=== PATIENT | male | born 1950 | race Caucasian/White ===

== ENCOUNTER 2022-02-17 11:12 | Outpatient (CLI) | payer MEDICARE, BC, SELFPAY | END 2022-02-17 11:13 | disposition home or self-care (01) | LOC: WOUND 11:14 | PROVIDERS: PCP Family Medicine; Visit Provider Nurse Practitioner Family | DX: E11.622 Type 2 diabetes mellitus with other skin ulcer (principal); L89.893 Pressure ulcer of other site, stage 3 | CPT/HCPCS: 11042 ==

== ENCOUNTER 2022-02-24 10:50 | Outpatient (CLI) | payer MEDICARE, BC, SELFPAY | END 2022-02-24 10:51 | disposition home or self-care (01) | LOC: WOUND 10:51 | PROVIDERS: PCP Family Medicine; Visit Provider Surgery | DX: E11.622 Type 2 diabetes mellitus with other skin ulcer (principal); L89.893 Pressure ulcer of other site, stage 3 | CPT/HCPCS: 97597 ==

== ENCOUNTER 2022-03-10 10:58 | Outpatient (CLI) | payer MEDICARE, BC, SELFPAY ==
--- OUTSIDE RECORDS SUMMARY | 2022-03-30 18:42 | XMS_ITS | Encounter Summary ---
:1950 Author Organization [facility] Address [address] [place] [address] Care Team Providers Name Role Phone Momo Forbes Primary Care Provider Joseph Quintana MD Unavailable Encounter Details Date Type Department Care Team Description 12/09/2021 External Order [facility] Outside, Provide r Results Molecular Diagnostic s [address] [place] [address] Social History Tobacco Use Types Packs/Day Years Used Date Former Smoker Cigars 5 Quit: 08/22/19 07 Smokeless Tobacco: Never Used Alcohol Use Standard Drinks/Week Comments Yes 0 (1 standard drink = 0.6 oz pure alcoho l) occasional drink. Alcohol Habits Answer Date Recorded How often do you have a drink containing alcohol? Not asked How many drinks containing alcohol do you have on a Not aske d typical day when you are drinking? How often do you have six or more drinks on one Not asked occasion? Comment: occasional drink. 02/08/2012 Sex Assigned at Date Recorded Not on file documented as of this encounter Plan of Treatment Not on filedocumented as of this encounter Procedures Procedure Name Priority Date/Time Associated Comments Diagnosis TACROLIMUS BY TANDEM Routine 12/09/2021 11:50 Res ults for this MASS SPECTROMETRY AM CDT procedure are in the results section. PROTEIN RANDOM URINE Routine 12/09/2021 11:50 Res ults for this AM CDT procedure are i n the results section. BASIC METABOLIC PANEL Routine 12/09/2021 11:50 Re sults for this AM CDT procedure are i n the results section. CBC WITH PLATELETS Routine 12/09/2021 11:50 Resul ts for this AM CDT procedure are i n the results section. documented in this encounter Results (ABNORMAL) CBC with platelets (12/09/2021 11:50 AM CDT) Analysis Performed At Patho logist Time Signature WBC Count 7.68 5.00 - NON-INTERFACE (External) 10.00 K/UL D (ONBASE SCANS) RBC Count 4.41 4.32 - NON-INTERFACE (External) 5.72 M/UL D (ONBASE SCANS) Hemoglobin 12.3 (L) 13.5 - NON-INTERFACE (External) 17.5 GM/DL D (ONBASE SCANS) Hematocrit 38.7 (L) 38.8 - NON-INTERFACE (External) 50.0 % D (ONBASE SCANS) MCV (External) 88 81 - 95 FL NON-INTERFACE D (ONBASE SCANS) MCH (External) 28 27 - 34 PG NON-INTERFACE D (ONBASE SCANS) MCHC (External) 32 32 - 36 NON-INTERFACE GM/DL D (ONBASE SCANS) Platelet Count 151 150 - 450 NON-INTERFACE (External) K/UL D (ONBASE SCANS) Specimen (Source) Anatomical Collection Method Collection Time Re ceived Time Location / / Volume Laterality Blood 12/09/2021 11:50 AM CDT Narrative [facility] - 12/15/2021 3:20 PM CDT Verified by Ruperto Pepper on 12/16/19. Provider Outside LAB - BLOOD ORDERABLES Performing Organization Address City/State/ZIP Code Phon e Number [facility] NON-INTERFACED (ONBASE SCANS) Tacrolimus by Tandem Mass Spectrometry (12/09/2021 11:50 AM CDT) P athologist Signature Tacrolimus(FK-5 4.5 See scan NON-INTERFACED 06) (External) ng/mL (ONBASE SCANS) Specimen (Source) Anatomical Collection Method Collection Time Re ceived Time Location / / Volume Laterality Blood 12/09/2021 11:50 AM CDT Narrative [facility] - 12/11/2021 4:45 PM CDT Verified by Cassie Florian on 12/11/2021. Orlando Richey MD LAB - BLOOD ORDERABLES Performing Organization Address City/State/ZIP Code Phon e Number [facility] NON-INTERFACED (ONBASE SCANS) (ABNORMAL) Protein random urine (12/09/2021 11:50 AM CDT) Analysis Performed At Patho logist Time Signature Protein Random 138 mg/dL NON-INTERFACE Urine D (ONBASE (External) SCANS) Creatinine 82 mg/dL NON-INTERFACE Urine mg/dL D (ONBASE (External) SCANS) Protein Total 1.68 (H) 0 - 0.19 NON-INTERFACE Ur per Cr D (ONBASE (External) SCANS) Specimen (Source) Anatomical Collection Method Collection Time Re ceived Time Location / / Volume Laterality Urine 12/09/2021 11:50 AM CDT Narrative [facility] - 12/10/2021 9:52 AM CDT Verified by Praful Huff on 2021. Orlando Richey MD LAB - URINE ORDERABLES Performing Organization Address City/State/ZIP Code Phon e Number [facility] NON-INTERFACED (ONBASE SCANS) (ABNORMAL) Basic metabolic panel (12/09/2021 11:50 AM CDT) P athologist Signature Glucose 133 (H) 60 - 115 NON-INTERFACE (External) mg/dL D (ONBASE SCANS) Urea Nitrogen 24 7 - 30 NON-INTERFACE (External) mg/dL D (ONBASE SCANS) Creatinine 1.9 (H) 0.5 - 1.5 NON-INTERFACE (External) mg/dL D (ONBASE SCANS) Sodium 139 135 - 149 NON-INTERFACE (External) mmol/L D (ONBASE SCANS) Potassium 4.3 3.5 - 5.1 NON-INTERFACE (External) mmol/L D (ONBASE SCANS) Chloride 107 96 - 114 NON-INTERFACE (External) mmol/L D (ONBASE (External) SCANS) CO2 (External) 25 20 - 32 NON-INTERFACE mmol/L D (ONBASE SCANS) Calcium 9.4 8.4 - 10.6 NON-INTERFACE (External) mg/dL D (ONBASE SCANS) Specimen (Source) Anatomical Collection Method Collection Time Re ceived Time Location / / Volume Laterality Blood 12/09/2021 11:50 AM CDT Narrative [facility] - 12/10/2021 9:23 AM CDT Verified by Cassie Florian on 12/10/2021. Orlando Richey MD LAB - BLOOD ORDERABLES Performing Organization Address City/State/ZIP Code Phon e Number [facility] NON-INTERFACED (ONBASE SCANS) documented in this encounter Visit Diagnoses Not on filedocumented in this encounter Care Teams Pocket Grinder Operator Relationship Specialty Start Date End Date Momo Forbes PCP - General Family Practice 01/02/14 [facility] [address] [place] [address] Joseph Quintana, Assigned Nephrology 03/29/21 Provider [address] [facility] [address] [facility] [address] [place] [address] documented as of this encounter
--- OUTSIDE RECORDS SUMMARY | 2022-03-30 18:42 | XMS_ITS | Encounter Summary ---
:1950 Author Organization [place] Address [address] [place] [address] Care Team Providers Name Role Phone Momo Forbes Primary Care Provider Joseph Quintana MD Unavailable Encounter Details Date Type Department Care Team Description 01/19/2022 External Order [facility] Outside, Provide r Results Molecular Diagnostic s [address] [place] [address] Social History Tobacco Use Types Packs/Day Years [...] Procedure Name Priority Date/Time Associated Comments Diagnosis EXTERNAL CULTURE Routine 01/19/2022 12:11 Results for this RESULTS PM CDT procedure are i n the results section. PROTEIN RANDOM URINE Routine 01/19/2022 11:55 Res ults for this AM CDT procedure are i n the results section. BASIC METABOLIC PANEL Routine 01/19/2022 11:55 Re sults for this AM CDT procedure are i n the results section. ROUTINE UA WITH Routine 01/19/2022 11:16 Results for this MICROSCOPIC AM CDT procedure are i n the results section. documented in this encounter Results External Culture Results (01/19/2022 12:11 PM CDT) Patholo gist Method Time Signature Scan Culture See Scanned NON-INTERFACE Results Report D (ONBASE (External) SCANS) Specimen (Source) Anatomical Collection Method Collection Time Re ceived Time Location / / Volume Laterality 01/19/2022 12:11 PM CDT Narrative [facility] - 01/25/2022 2:48 PM CDT Verified by Priscilla Mcdaniel on 01/25/2022. Provider Outside LABORATORY Performing Organization Address City/State/ZIP Code Phon e Number [facility] NON-INTERFACED (ONBASE SCANS) (ABNORMAL) Protein random urine (01/19/2022 11:55 AM CDT) Analysis Performed At Patho logist Time Signature Protein Random 176 mg/dL NON-INTERFACE Urine D (ONBASE (External) SCANS) Creatinine 66 mg/dL NON-INTERFACE Urine mg/dL D (ONBASE (External) SCANS) Protein Total 2.66 (H) 0 - 0.19 NON-INTERFACE Ur per Cr Ratio D (ONBASE (External) SCANS) Specimen (Source) Anatomical Collection Method Collection Time Re ceived Time Location / / Volume Laterality Urine 01/19/2022 11:55 AM CDT Narrative [facility] - 01/21/2022 8:22 AM CDT Verified by Priscilla Mcdaniel on 01/21/2022. Provider Outside LAB - URINE ORDERABLES Performing Organization Address City/State/ZIP Code Phon e Number [facility] NON-INTERFACED (ONBASE SCANS) (ABNORMAL) Basic metabolic panel (01/19/2022 11:55 AM CDT) P athologist Signature Glucose 236 (H) 60 - 115 NON-INTERFACE (External) mg/dL D (ONBASE SCANS) Urea Nitrogen 24 7 - 30 NON-INTERFACE (External) mg/dL D (ONBASE SCANS) Creatinine 1.9 (H) 0.5 - 1.5 NON-INTERFACE (External) mg/dL D (ONBASE SCANS) Sodium 140 135 - 149 NON-INTERFACE (External) mmol/L D (ONBASE SCANS) Potassium 4.5 3.6 - 5.1 NON-INTERFACE (External) mmol/L D (ONBASE SCANS) Chloride 105 96 - 114 NON-INTERFACE (External) mmol/L D (ONBASE (External) SCANS) CO2 (External) 22 20 - 32 NON-INTERFACE mmol/L D (ONBASE SCANS) Calcium 9.5 8.4 - 10.6 NON-INTERFACE (External) mg/dL D (ONBASE SCANS) Specimen (Source) Anatomical Collection Method Collection Time Re ceived Time Location / / Volume Laterality Blood 01/19/2022 11:55 AM CDT Narrative [facility] - 01/21/2022 8:19 AM CDT Verified by Yuid Ruano on . Provider Outside LAB - BLOOD ORDERABLES Performing Organization Address City/State/ZIP Code Phon e Number [facility] NON-INTERFACED (ONBASE SCANS) (ABNORMAL) UA with Microscopic (01/19/2022 11:16 AM CDT) [facility] gist Method Time Signature Color Urine YEL YELLOW NON-INTERFAC (External) ED (ONBASE SCANS) Appearance Urine CLEAR CLEAR NON-INTERFAC (External) ED (ONBASE SCANS) Glucose Urine 2+ NEGATIVE NON-INTERFAC (External) ED (ONBASE SCANS) Bilirubin Urine NEG NEGATIVE NON-INTERFAC (External) ED (ONBASE SCANS) Ketones Urine NEG NEGATIVE NON-INTERFAC (External) ED (ONBASE SCANS) Specific [place] 1.010 1.005 - NON-INTERFAC Urine (External) 1.030 ED (ONBASE SCANS) Blood Urine 2+ (A) NEGATIVE NON-INTERFAC (External) ED (ONBASE SCANS) pH Urine 5.5 5.0 - 8.0 NON-INTERFAC (External) ED (ONBASE SCANS) Protein Albumin 2+ (A) NEGATIVE NON-INTERFAC Ur (External) ED (ONBASE SCANS) Urobilinogen 0.2 NON-INTERFAC (External) ED (ONBASE SCANS) Nitrites Urine NEG NEGATIVE NON-INTERFAC (External) ED (ONBASE SCANS) Leukocyte TRACE (A) NEGATIVE NON-INTERFAC Esterase Urine ED (ONBASE (External) SCANS) WBC Urine 0 0 - 2 NON-INTERFAC (External) ED (ONBASE SCANS) RBC Urine 5-10 (A) 0 - 2 NON-INTERFAC (External) ED (ONBASE SCANS) Casts Urine 0 0 NON-INTERFAC (External) ED (ONBASE SCANS) Crystal Urine 0 0 NON-INTERFAC (External) ED (ONBASE SCANS) Squamous FEW FEW NON-INTERFAC Epithelial Urine ED (ONBASE (External) SCANS) Bacteria Urine 0 0 NON-INTERFAC (External) ED (ONBASE SCANS) Specimen (Source) Anatomical Collection Method Collection Time Re ceived Time Location / / Volume Laterality Urine 01/19/2022 11:16 AM CDT Narrative [facility] - 01/21/2022 8:14 AM CDT Verified by Ruperto Pepper on 01/22/20 22. Provider Outside LAB - URINE ORDERABLES Performing Organization Address City/State/ZIP Code Phon e Number [facility] NON-INTERFACED (ONBASE SCANS) documented in this encounter Visit Diagnoses Not on filedocumented in this encounter Care Teams Sheriff Sergeant Relationship Specialty Start Date End Date Momo Forbes PCP - General Family Practice 01/02/14 [facility] [address] [place] [address] Joseph Quintana, Assigned Nephrology 03/29/[address] [place] [address] [address] [place], [place] [address] documented as of this encounter
--- OUTSIDE RECORDS SUMMARY | 2022-03-30 18:42 | XMS_ITS | Encounter Summary ---
:1950 Author Organization [place] Address [facility] [place] [address] Care Team Providers Name Role Phone Momo Forbes Primary Care Provider Joseph Quintana MD Unavailable Reason for Visit Reason Onset Date Comments Transplant 11/24/2021 Encounter Details Date Type Department Care Team Description 11/24/2021 Telephone [facility] Transplant Obdulia Peacock, tin container straightener Clinic [address] [place] [address] [phone] Social History Tobacco Use Types Packs/Day Years [...] on file documented as of this encounter Miscellaneous Notes Telephone Encounter - Gretta Peacock RN - 12/01/2021 10:25 AM CDT ISSUE: Patient states he had labs drawn ~one week ago at [facility], however results have not beenfaxed to [facility]. PLAN: call lab to have results faxed OUTCOME: New labs orders sent. Most recent bmp and cbc requested from october 2021. Tac and UPC due. Left detailed message with instructions to obtain tacrolimus trough level and UPC at earliest convenience. Asked for CB to confirm understanding. Gretta Peacock tin container straightenerResearch Worker Encyclopedia [phone] Telephone Encounter - Azael Rodriguez - 11/24/2021 3:32 PM CDT Patient called to touch base with the RNCC regarding some questions. documented in this encounter Plan of Treatment Not on filedocumented as of this encounter Visit Diagnoses Not on filedocumented in this encounter Care Teams Personal Carer Relationship Specialty Start Date End Date Momo Forbes PCP - General Family Practice 01/02/14 [facility] [address] [place] [address] Joseph Quintana, Assigned Nephrology 03/29/21 MD Provider [address] [place] [address] [address] [place], [place] [address] documented as of this encounter
--- OUTSIDE RECORDS SUMMARY | 2022-03-30 18:42 | XMS_ITS | Encounter Summary ---
:1950 Author Organization [place] Address [facility] [place] [address] Care Team Providers Name Role Phone Momo Forbes Primary Care Provider Joseph Quintana MD Unavailable Reason for Visit Reason Onset Date Comments Transplant 01/21/2022 Hyperglycemia, eleva moni [facility] Encounter Details Date Type Department Care Team Description 01/21/2022 Telephone [facility] Gretta Peacock RN Trans plant Transplant Clinic (Hyperglycemia, elevated [address] [facility]) [place] [address] Social History Tobacco Use Types Packs/Day Years [...] Telephone Encounter - Gretta Peacock RN - 01/21/2022 12:07 PM CDT ISSUE: trend up in [facility], hyperglycemia OUTCOME: phone call attempted X3. Will send letter via mail. Gretta Peacock RN Practice Manager [phone] documented in this encounter Plan of Treatment Not on filedocumented as of this encounter Visit Diagnoses Not on filedocumented in this encounter Care Teams Phone Operator Relationship Specialty Start Date End Date Momo Forbes PCP - General Family Practice 01/02/14 [facility] [address] [place] [address] Joseph Quintana, Assigned Nephrology 03/29/21 MD Provider [address] [place] [address] [address] [place] [address] documented as of this encounter
--- OUTSIDE RECORDS SUMMARY | 2022-03-30 18:42 | XMS_ITS | Continuity of Care Document ---
:1950 Author Organization [facility] Address [address] [address] [place] [address] Phone Care Team Providers Name Role Phone No Information Unavailable Unavailable Procedures Procedure Date Ugi Endo; W/us Guid Asp/bx Subsqt Hosp-da E&m Minr Compl Init Hosp-da E&m Mod Severity Advance Directives Directive Yes / No Effective Date File Name No Information Encounters Encounter Practice Location Reason(s) Diagnoses Date Provider Provide rs Description For Visit Copied on Encounter [place] No No [facility], [address] [address], [place], [place], [id number], [place] tel:[phone] [facility] Cross No Darling MICHELE Referring [facility] Information Davsi. Pro vider: [facility], Hosp [address] [place], [address], [address] [place], [address] [facility] [address], [place], [place], [facility] [id number], [place], [address], [place] [id number], [place] tel:+ . , [place], [id number] tel:[phone] . tel:[phone] [facility] Pancreas [place] SPECIAL EDUCATION PRESCHOOL TEACHER Digestive Clinic cyst Joan. 3[address] [facility], [address] [place], [address], [address], [place] [facility], [place], [place], [id number], [id number], [place]. tel:+ tel:[phone] [facility] December- [place] SPECIAL EDUCATION PRESCHOOL TEACHER Digestive Clinic cyst Joan. [address] [employer] [place], 1 [place], [address], [address], [facility], s, [place], [place], [id number], [id number], [place]. tel: tel:[phone] [facility] Pancreas Sep- N[place] SPECIAL EDUCATION PRESCHOOL TEACHER Digestive Clinic cyst Joan. [address] [facility], [address] [place] [address] [place], [address], [address], [facility], [place], [place], [id number], [id number], [place]. tel: tel:[phone] Subsqt [facility] No Sep- [place] SPECIAL EDUCATION PRESCHOOL TEACHER Referring Hosp-da E&m Digestive [facility] Information Joan. 20 09 Provider: Shay [facility], Hosp [address] [place] [address] NE, Aren EQUIPMENT DETAILER [address], [address], [place], [address] [facility] [address], s, [place], [place], [place], [id number], [id number], [place], [address]. [place]. tel:+50 tel: tel:[phone] Init Hosp-da [facility] Cross No Aug- Prem MICHELE Referri ng E&m Mod Digestive [facility] Information Angelina. [address] P rovider: [facility], Hosp [address] [place] [address] NE, Arendt EQUIPMENT DETAILER [address], [address], [place], [address] [facility] [address], [place], [place], [place], [place], [id number], [id number], [place], [address]. [place]. tel:+50 tel: tel:[phone] Family History Family Member Type Diagnosis Age At Onset No Information Immunizations Vaccine Date Status Comments SARS-COV-2 (COVID-19) vaccine, administered N ote: [facility] bi-directional mRNA, spike protein, LNP, interf dharmesh ; Source: Other preservative free, 100 mcg/0.5mL Registry dose SARS-COV-2 (COVID-19) vaccine, administered N ote: [facility] bi-directional mRNA, spike protein, LNP, interf dharmesh ; Source: Other preservative free, 100 mcg/0.5mL Registry dose influenza virus vaccine, administered Note: M IIC bi-directional unspecified formulation interfac e ; Source: Other Registry influenza, high dose seasonal, administered N ote: [facility] bi-directional preservative-free interface ; So urce: Other Registry tetanus and diphtheria toxoids, administered Note: [facility] bi-directional adsorbed, preservative free, for interface ; Source: Other adult use (2 Lf of tetanus Bonilla try toxoid and 2 Lf of diphtheria toxoid) Seasonal trivalent influenza administered Not e: [facility] bi-directional vaccine, adjuvanted, interface ; Source: Other preservative free Registry Seasonal trivalent influenza administered Not e: [facility] bi-directional vaccine, adjuvanted, interface ; Source: Other preservative free Registry influenza, high dose seasonal, administered N ote: [facility] bi-directional preservative-free interface ; So urce: Other Registry Prevnar 13 administered Note: [facility] bi-di rectional interface ; Sour ce: Other Registry Afluria Qd administered Note: [facility] bi-directional interface ; Sour ce: Other Registry Afluria Qd administered Note: [facility] bi-directional interface ; Sour ce: Other Registry Influenza, seasonal, injectable, administered Note: [facility] bi-directional preservative free interface ; So urce: Other Registry Pneumovax 23 administered Note: [facility] bi-di rectional interface ; Sour ce: Other Registry Influenza, seasonal, injectable, administered Note: [facility] bi-directional preservative free interface ; So urce: Other Registry Influenza, seasonal, injectable administered Note: [facility] bi-directional interface ; Sour ce: Other Registry Payers Payer name Insurance type Covered constitution party ID Authorization(s ) No Information Social History Type Description Quantity Date Captured Comments Sex Male Smoking Status No Information Chief Complaint And Reason For Visit No Information Reason For Referral Reason For Referral No Information Plan Of Treatment Date Type Action Status Referral Ordered: ordered EUS Appointment date/timeframe: 02/05/2021 Referral Ordered: ordered MRI Abdomen WITHOUT And WITH Con trast Appointment date/timeframe: 01/05/2021 Referral Ordered: ordered MRI Abdomen WITH Contrast Appointment date/timeframe: 01/01/2021 History Of Present Illness Encounter Date Complaint History Of Present I llness No Information Functional Status Date Functional Assessment No Information Instructions Date Instruction Additional Informati on No Information Assessments Type Assessment Date No Information Patient Care Teams Name Effective Dates (start - stop) Status M embsagar No Information
--- OUTSIDE RECORDS SUMMARY | 2022-03-30 18:42 | XMS_ITS | Encounter Summary ---
:1950 Author Organization [place] Address [facility] [place] [address] Care Team Providers Name Role Phone Momo Forbes Primary Care Provider Joseph Quintana MD Unavailable Reason for Visit Reason Onset Date Comments Transplant 12/02/2021 Encounter Details Date Type Department Care Team Description 12/02/2021 Telephone [facility] Transplant Obdulia Peacock, logistics supervisor Clinic [address] [place] [address] [phone] Social History Tobacco Use Types Packs/Day [...] Telephone Encounter - Gretta Peacock RN - 12/02/2021 8:30 AM CDT ISSUE: creatinine 1.8, above baseline 1.4-1.7 PLAN: Call and assess hydration status. How much water is he drinking per day? Any recent illness, diarrhea, s/s of a UTI, or medication changes? Any increased intake of alcohol or caffeine? Recommend increasing hydration and repeating labs within 1 week. OUTCOME: Left detailed message for patient to repeat labs including drug levels within the next week. Encouraged increase in hydration. Asked for CB to confirm he received message. Gretta Peacock logistics supervisorLead Refiner [phone] ADDENDUM: left message for patient stating he has active orders at preferred lab. Asked to please obtain a full set of transplant labs as soon as possible. Gretta Peacock logistics supervisorLead Refiner [phone] documented in this encounter Plan of Treatment Not on filedocumented as of this encounter Visit Diagnoses Not on filedocumented in this encounter Care Teams Accounts Executive Relationship Specialty Start Date End Date Momo Forbes PCP - General Family Practice 01/02/14 [facility] [address] [place] [address] Joseph Quintana, Assigned Nephrology 03/29/[address] [place] [address] [address] [place] [address] documented as of this encounter
--- OUTSIDE RECORDS SUMMARY | 2022-03-30 18:42 | XMS_ITS | Clinical Summary ---
:1950 Author Organization [place] Address [facility] [place] [address] Care Team Providers Name Role Phone Momo Forbes Primary Care Provider Joseph Quintana MD Unavailable Allergies Active Allergy Reactions Severity Noted Date Comments Lisinopril 05/14/2014 Medications Medication Sig Dispensed Refills Start Date End Date Status LANTUS VIAL 100 Inject 50 Units 0 Active UNITS/ML SC SOLN Subcutaneous every evening HumaLOG VIAL 100 Inject 20-40 Units 0 Active UNITS/ML SOLN Subcutaneous 3 times daily (before meals) Patient reported his dose 10-12 unit 2-3 times daily before meals Calcium Take 1 tablet by 0 Act jo Carbonate-Vitamin D mouth daily (dose (CALCIUM + D PO) unknown) aspirin 81 MG Take 1 tablet (81 180 tablet 0 04/09/2014 Active tabletIndications: mg) by mouth daily DM (diabetes mellitus), type 2 (H) rosuvastatin Take 1 tablet (10 90 tablet 3 04/22/2015 Active (CRESTOR) 10 MG mg) by mouth daily tabletIndications: DM (diabetes mellitus), type 2 (H), Other and unspecified hyperlipidemia citalopram (CELEXA) Take 1 tablet (20 90 tablet 3 09/28/2016 Active 20 MG mg) by mouth daily tabletIndications: Reactive depression gabapentin 300 MG PO Take 300 mg by 0 10/08/2019 Active capsule mouth 3 times daily carvedilol 6.25 MG Take 1 tablet 180 tablet 3 10/09/2019 Active PO (6.25 mg) by mouth tabletIndications: 2 times daily HTN, kidney (with meals) transplant related losartan 100 MG PO Take 1 tablet (100 90 tablet 3 10/09/2019 Active tablet mg) by mouth daily amLODIPine (NORVASC) Take 1 tablet (10 90 tablet 3 03/05/2021 Active 10 MG mg) by mouth At tabletIndications: Bedtime HTN, kidney transplant related mycophenolate Take 3 capsules 180 capsule 11 08/20/2021 Active (GENERIC EQUIVALENT) (750 mg) by mouth 250 MG 2 times daily capsuleIndications: Kidney transplanted, -donor kidney transplant recipient PROGRAF (BRAND) 0.5 Take 1 capsule 30 capsule 11 08/25/2021 Active MG (0.5 mg) by mouth capsuleIndications: every evening -donor TOTAL dose 1 mg AM kidney transplant and 0.5 mg PM recipient, Kidney transplanted PROGRAF (BRAND) 1 MG Take 1 capsule (1 30 capsule 11 08/25/2021 Active capsuleIndications: mg) by mouth daily Kidney transplanted, Total daily dose = -donor 1mg AM, 0.5mg PM kidney transplant recipient Active Problems Problem Noted Date Vitamin D deficiency 03/24/2021 Skin cancer 03/24/2021 Gram-negative bacterial infection 09/18/2020 Bacterial infection 09/17/2020 Kidney replaced by transplant 02/18/2014 Immunosuppression 02/05/2014 Aftercare following organ transplant 02/05/2014 Atrial fibrillation 02/04/2014 Hyperlipidemia 12/02/2011 Overview: Problem list name updated by automated p [employer]. Provider to review Gout 12/02/2011 Peripheral neuropathy 12/02/2011 Diabetic retinopathy 12/02/2011 HTN, kidney transplant related 12/02/2011 Overview: Problem list name updated by automated p [employer]. Provider to review DM (diabetes mellitus), type 2 12/02/2011 History of tobacco use 12/02/2011 Thrombocytopenia 12/02/2011 Malaise and fatigue 12/02/2011 Overview: Problem list name updated by automated p [employer]. Provider to review Depression Resolved Problems Problem Noted Date Resolved Date End stage renal failure on dialysis 02/02/201401/20 ESRD (end stage renal disease) on dialysis 12/10/2013 10/17/2018 Organ transplant candidate 12/07/2013 10/17/2018 Screening for cardiovascular condition 12/07/2013 0 10/17/2018 Overview: Problem list name updated by automated p rocess. Provider to review Anemia 12/02/2011 10/17/2018 Overview: Problem list name updated by automated p rocess. Provider to review Dialysis patient 12/02/2011 10/17/2018 Encounters Date Type Specialty Care Team Description 01/21/2022 Telephone Solid Organ Gretta Peacock RN Transplant Transplant (Hyperglycemia, elevated UPC) 01/19/2022 External Order Lab Outside, Provider Results from Last 3 Months Immunizations Name Administration Dates Next Due Hepatitis B Immunity: Titer 02/08/2012 Influenza (High Dose) 3 valent vaccine 10/09/2019 Influenza (IIV3) PF 07/12/2017, 06/22/2013 Pneumococcal 23 valent 05/05/2011 TD (ADULT, 7+) 01/12/2019 Family History Medical History Relation Comments C.A.D. Father Alzheimer Disease Mother Relation Status Comments Father Mother Social History Tobacco Use Types Packs/Day Years [...] Assigned at Date Recorded Not on file Last Filed Vital Signs Vital Sign Reading Time Taken Comments Blood Pressure 169/76 10/09/2019 2:35 PM MEDICAL FRONT DESK SPECIALIST Pulse 67 10/09/2019 2:35 PM MEDICAL FRONT DESK SPECIALIST Temperature 36.5 ??C (97.7 ??F) 10/17/2018 1:54 PM MEDICAL FRONT DESK SPECIALIST Respiratory Rate 18 10/25/2016 4:39 PM MEDICAL FRONT DESK SPECIALIST Oxygen Saturation 95% 10/09/2019 2:35 PM MEDICAL FRONT DESK SPECIALIST Inhaled Oxygen Concentration - - Weight 132.5 kg (292 lb 1.6 oz) 10/09/2019 2:35 PM MEDICAL FRONT DESK SPECIALIST Height 182.9 cm (6') 10/10/2017 2:25 PM MEDICAL FRONT DESK SPECIALIST Body Mass Index 39.62 10/10/2017 2:25 PM MEDICAL FRONT DESK SPECIALIST Plan of Treatment Health Maintenance Due Date Last Done Comments ADVANCE CARE PLANNING 1950 ANNUAL REVIEW OF HM ORDERS 1950 CT COLONOGRAPHY 1950 DIABETIC FOOT EXAM 1950 EYE EXAM 1950 FIT-DNA (Cologuard) 1950 FIT 1950 FLEX SIG 1950 COLONOSCOPY 1960 COLORECTAL CANCER SCREENING 1960 ZOSTER IMMUNIZATION (1 of 1969 2) AORTIC ANEURYSM SCREENING 2015 (SYSTEM ASSIGNED) MEDICARE ANNUAL WELLNESS 2015 VISIT Pneumococcal Vaccine: 65+ 03/17/2017 03/17/2016, 05/05/2011 Years (3 - PPSV23 or PCV20) FALL RISK ASSESSMENT 10/10/2018 10/10/2017 COVID-19 Vaccine (3 - 12/16/2020 11/18/2020, 10/21/2020 Moderna risk series) PHQ-2 (once per calendar 08/22/2021 10/10/2017 year) INFLUENZA VACCINE (#1) 2022 09/22/2021, 07/30/2021, 05/29/2020, Additional history exists A1C 07/14/2022 01/11/2022, 11/16/2021, 01/27/2021, Additional history exists LIPID 11/16/2022 11/16/2021, 08/08/2020, 05/15/2018, Additional history exists BMP 01/19/2023 01/19/2022, 12/09/2021, 11/16/2021, Additional history exists MICROALBUMIN 01/19/2023 01/19/2022, 12/09/2021, 07/08/2020, Additional history exists DTAP/TDAP/TD IMMUNIZATION 01/12/2029 01/12/2019, 01/12/2019 (2 - Td or Tdap) HEPATITIS C SCREENING Completed 02/02/2014, 02/08/2012 IPV IMMUNIZATION Aged Out No longer eligi ble based on patient 's age to complete this topic MENINGITIS IMMUNIZATION Aged Out No longe r eligible based on patient 's age to complete this topic Medical Devices Explanted Type Area Drum Builder Device Shelf Model / Identifier Expiration Serial / Date Lot Stent Ureteral Childress Renal Transplant [id number] Right: [employer] 11/19/2016 [id number] / Implanted: Qty: 1 on 02/02/2014 by Migel Viveros MD at [facility] Ureter [employer] / Explanted: Qty: 1 on 04/01/2014 by Celina Helton MD at [facility] [id number] Procedures Procedure Name Priority Date/Time Associated Comments [...] procedure are i n the results section. from Last 3 Months Results External Culture Results (01/19/2022 12:11 PM CDT) Patholo gist Method Time Signature Scan Culture See Scanned NON-INTERFACE Results Report D (ONBASE (External) SCANS) Specimen (Source) Anatomical Collection Method Collection Time Re ceived Time Location / / Volume Laterality 01/19/2022 12:11 PM CDT Narrative [facility] - 01/25/2022 2:48 PM CDT Verified [...] - 01/21/2022 8:19 AM CDT Verified by Yudi Ruano on . Provider Outside LAB - BLOOD ORDERABLES Performing Organization Address City/State/ZIP Code Phon e Number [facility] NON-INTERFACED (ONBASE SCANS) (ABNORMAL) UA with Microscopic (01/19/2022 11:16 AM CDT) Patholo gist Method Time Signature Color Urine YEL YELLOW NON-INTERFAC (External) ED (ONBASE SCANS) Appearance Urine CLEAR CLEAR NON-INTERFAC (External) ED (ONBASE SCANS) Glucose Urine 2+ NEGATIVE NON-INTERFAC (External) ED (ONBASE SCANS) Bilirubin Urine NEG NEGATIVE NON-INTERFAC (External) ED (ONBASE SCANS) Ketones Urine NEG NEGATIVE NON-INTERFAC (External) ED (ONBASE SCANS) Specific [place] 1.010 1.005 - NON-INTERFAC Urine (External) 1.030 [...] Laterality Urine 01/19/2022 11:16 AM CDT Narrative [facility] - 01/21/2022 8:14 AM CDT Verified by Ruperto Pepper on 01/22/20 22. Provider Outside LAB - URINE ORDERABLES Performing Organization Address City/State/ZIP Code Phon e Number [facility] NON-INTERFACED (ONBASE SCANS) from Last 3 Months Insurance Payer Benefit Plan / Subscriber ID Effective Phone Address T ype Group Dates MEDICARE MEDICARE [id number] 2011-Prese [phone] ATTN CLAI MS Medicare nt [address] [place] [address] BCBS BCBS OF [place] [id number] 2016-Prese [phone] [address] [address] Indemnity nt [address] [place] [address] [address] [place] [address] Diego Guthrie Personal/Family Self 1950 [address] [place] [address] Advance Directives For more information, please contact: [phone] Latest Code Status on File Code Status Date Activated Date Inactivated Comments Full Code 04/01/2014 9:03 AM Full Code 02/08/2014 7:12 AM 04/01/2014 9:03 AM Full Code 02/03/2014 12:56 AM 02/08/2014 7:12 AM Care Teams Point Of Care Technician Relationship Specialty Start Date End Date Momo Forbes PCP - General Family Practice 01/02/14 [facility] [address] [place] [address] Joseph Quintana, Assigned Nephrology 03/29/21 MD Provider [address] [facility] [address] [facility] [address] [place] [address]
--- OUTSIDE RECORDS SUMMARY | 2022-03-30 18:42 | XMS_ITS | Encounter Summary ---
:1950 Author Organization [place] Address [facility] [place] [address] Care Team Providers Name Role Phone Momo Forbes Primary Care Provider Joseph Quintana MD Unavailable Reason for Visit Reason Onset Date Comments Transplant Lab 12/10/2021 Encounter Details Date Type Department Care Team Description 12/10/2021 Telephone [facility] Transplant Mati Recinos RN Transplant Lab Clinic [address] [place] [address] [phone] Social History Tobacco Use Types Packs/Day [...] this encounter Miscellaneous Notes Telephone Encounter - Cristy Chen LPN - 12/11/2021 3:29 PM CDT Spoke to Diego Guthrie and patient denies any recent illness. Patient denies any fever, missed medication, changes in medication, pain over the transplanted kidney, nausea/vomiting/diarrhea, dehydration, low BP, dizziness or light headedness. Patient confirms that he will recheck BMP, UPCR, UA/UC a DSA next week. Lab orders faxed to [facility]. Telephone Encounter - Cristy Chen LPN - 12/11/2021 12:22 PM CDT Left message for patient to return call to txp office. Telephone Encounter - Josseline Recinos RN - 12/10/2021 11:00 AM CDT 12/09/21: Creatinine = 1.9 UPCR = 1.68 PLAN: Call Diego Guthrie and check for recent illness. Any fever? Any missed medication? Changes in medication, (munir diuretics)? Any pain over the transplanted kidney? Any nausea / vomiting / diarrhea? Dehydrated? Is BP low? Any dizziness or light headedness when standing or walking? If not on fluid restriction, instruct to improve hydration and recheck BMP, UPCR, UA/UC and DSA nextweek. documented in this encounter Plan of Treatment Not on filedocumented as of this encounter Visit Diagnoses Not on filedocumented in this encounter Care Teams Bulb Tester Relationship Specialty Start Date End Date Momo Forbes PCP - General Family Practice 01/02/14 [facility] [address] [place] [address] Joseph Quintana, Assigned Nephrology 03/29/21 MD Provider [address] [facility] 353 [facility] [address] [place] [address] documented as of this encounter
--- OUTSIDE RECORDS SUMMARY | 2022-03-30 18:43 | XMS_ITS | Encounter Summary ---
:1950 Author Organization [place] Address [address] [place] [address]. [place] [address] Care Team Providers Name Role Phone Momo Forbes A Primary Care Provider Reason for Visit Reason Onset Date Comments Transplant Immunosuppression Management 08/11/2020 Encounter Details Date Type Department Care Team Description 08/11/2020 [facility] Barbie Ugalde [facility] nsplant Transplant Clinic BOGDAN Nam Immunosuppression [address] [place] [address] [place] [address] Social History Tobacco Use Types [...] this encounter Miscellaneous Notes Telephone Encounter - Barbie Ugalde RN - 08/11/2020 4:16 PM CATERING ATTENDANT ISSUE: Tacrolimus IR level 11.7 on 08/08/20, goal 4-6, dose 2 mg BID. Ensure patient did not take dose morning of lab draw. PLAN: Please call patient and confirm this was an accurate 12-hour trough. Verify Tacrolimus IR dose 2 mg BID. Confirm no new medications or illness. Confirm no missed doses. If accurate trough and accurate dose, decrease Tacrolimus IR dose to 1.5 mg BID and repeat labs in 1 week. Barbie Ugalde, RN, BSN Solid Organ Transplant, Post Kidney and Pancreas Transplant Class A Lineman [phone] OUTCOME: Spoke with patient, they confirm accurate trough level and current dose 2 mg BID. Patient confirmed dose change to 1.5 mg BID and to repeat labs in 1 weeks. Orders sent to preferred pharmacy for dose change and lab for repeat labs. Patient voiced understanding of plan. RING ATTENDANT documented in this encounter Plan of Treatment Not on filedocumented as of this encounter Visit Diagnoses Diagnosis Kidney transplanted - Primary Kidney replaced by transplant -donor kidney transplant recipie nt Kidney replaced by transplant documented in this encounter Care Teams Instrument Technician Apprentice Relationship Specialty Start Date End Date Momo Forbes PCP - General Family Practice 01/02/[address] [address] documented as of this encounter
--- OUTSIDE RECORDS SUMMARY | 2022-03-30 18:43 | XMS_ITS | Encounter Summary ---
:1950 Author Organization [place] Address [facility] [place] [address] Care Team Providers Name Role Phone Momo Forbes A Primary Care Provider Reason for Visit Reason Onset Date Comments Transplant Immunosuppression Management 07/03/2020 Late to refill Encounter Details Date Type Department Care Team Description 07/03/2020 Telephone [facility] Tram, Transplant Transplant Clinic Barbie Nam, Immunosuppression [address] [place] [address] RN Management (Late to [place], [place] refill) [phone] Social History Tobacco Use Types Packs/Day [...] encounter Miscellaneous Notes Telephone Encounter - Barbie Ugalde, BOGDAN - 07/03/2020 10:20 AM DIGITAL CONTENT SPECIALIST Images from the original note were not included. Late to fill IS meds Received: Yesterday Message Contents Meghan Mccormack, Barbie Rudd, BOGDAN ?? Hi Diego Valentin is 26 days late to fill his meds. ??We have been unable to reach him. ??Last filled 30 days supply on 05/08/20 and his previous fill he was 2 weeks late filling. Meghan OUTCOME: RNCC called Diego to inform him of late to fill anti-rejection medication. Mycophenolate 750 mg BID Prograf 1 mg BID Prograf 0.5 mg (Hold)-Reorder (see below) Tac level was low (2.5) on 05/26/20, goal 4-6. VM message was left to increase dose at this time. Script not updated at that time as RNCC was awaiting call back from Diego. However, no call back received. Updated script with increased dose at this time with assumption he increased dose after listening to VM. Refill sent for increased dose to 1.5 mg BID. Need new level in 2 weeks- orders were sent 05/30/20; copy to patient so he is aware. TAL CONTENT SPECIALIST documented in this encounter Plan of Treatment Not on filedocumented as of this encounter Visit Diagnoses Diagnosis -donor kidney transplant recipie nt Kidney replaced by transplant Kidney transplanted Kidney replaced by transplant documented in this encounter Care Teams Shell Assembler Relationship Specialty Start Date End Date Momo Forbes PCP - General Family Practice 01/02/14 [place] [address] documented as of this encounter
--- OUTSIDE RECORDS SUMMARY | 2022-03-30 18:43 | XMS_ITS | Encounter Summary ---
:1950 Author Organization [place] Address [facility] [place] [address] Care Team Providers Name Role Phone ForbesMomo prakash A Primary Care Provider Reason for Visit Reason Onset Date Comments Transplant 07/11/2020 Encounter Details Date Type Department Care Team Description 07/11/2020 Telephone [facility] BODGAN Nam [address] [place] [address] [phone] Social History Tobacco Use Types Packs/Day [...] Telephone Encounter - Barbie Ugalde RN - 07/11/2020 2:11 PM INSURANCE LOSS ADJUSTER ISSUE: Potassium 5.2 on 07/08/20. PLAN: Assess for high dietary intake of potassium. Encouraged Diego to reduce the amount of bananas and potatoes he admitted to eating high amounts of. OUTCOME: Please have pt repeat BMP in 1 week. Orders sent RANCE LOSS ADJUSTER Telephone Encounter - Barbie Ugalde RN - 07/11/2020 1:41 PM INSURANCE LOSS ADJUSTER ISSUE: Tacrolimus IR level 2.2 on 07/08/20 0923, goal 4-6, dose Prograf 1.5 mg BID. PLAN: Please call patient and confirm this was an accurate 12-hour trough. Verify Tacrolimus IR dose 1.5 mg BID. Confirm no new medications or illness. Confirm no missed doses. If accurate trough and accurate dose, increase Tacrolimus IR dose to 2.5 mg BID and repeat labs in 1 week. OUTCOME: Spoke with patient, they confirm accurate trough level. But have not made dose change to 1.5 mg BID as he has not yet received the 0.5 mg capsules. Instructed Latrell to increase his 1 mg (1 cap) BID dose which he confirmed to be taking, up to 2 mg (2 capsules) BID. Patient confirmed dose change to 2 mg BID and to repeat labs in 1 week. Orders sent to preferred pharmacy for dose change and lab for repeatlabs. Patient voiced understanding of plan. RANCE LOSS ADJUSTER documented in this encounter Plan of Treatment Not on filedocumented as of this encounter Visit Diagnoses Diagnosis -donor kidney transplant recipie nt Kidney replaced by transplant Kidney transplanted Kidney replaced by transplant documented in this encounter Care Teams Surgical Corsetier Relationship Specialty Start Date End Date Momo Forbes PCP - General Family Practice 01/02/[address] [address] documented as of this encounter
--- OUTSIDE RECORDS SUMMARY | 2022-03-30 18:43 | XMS_ITS | Encounter Summary ---
:1950 Author Organization [place] Address [facility] [place] [address] Care Team Providers Name Role Phone Momo Forbes A Primary Care Provider Reason for Visit Reason Onset Date Comments Transplant Immunosuppression Management 09/08/2020 Encounter Details Date Type Department Care Team Description 09/08/2020 Telephone [facility] Tram, Transplant Transplant Clinic Barbie Nam, Immunosuppression [address] [place] [address] [place] [address] Social History Tobacco Use Types [...] Telephone Encounter - Barbie Ugalde RN - 09/09/2020 3:06 PM CONVERTER OPERATOR Second call placed to patient and voicemail message left. ERTER OPERATOR Telephone Encounter - Barbie Ugalde RN - 09/08/2020 10:31 AM CONVERTER OPERATOR Images from the original note were not included. Message Received: 3 days ago Message Contents Beny Staton, [facility] Barbie Ugalde, BOGDAN ?? Latrell has not filled immunos since 07/21. ??His tacro dose changed and he has not filled the 0.5mg in over a year. ??He has not returned our calls. ?? Beny Staton [facility] Specialty Pharmacist [phone] OUTCOME: Tacrolimus dose was decreased from 2mg BID to 1.5 mg BID on 08/12/20. Labs were ordered for repeat 08/12/20 but not completed; reordered with copy mailed to patient. Detailed VM message left for Latrell explaining he was to decrease his tacrolimus dose due to high levelon 08/08/20 but no 0.5 mg capsules were refilled for dose change; need to know what he is currently taking and need labs. ERTER OPERATOR documented in this encounter Plan of Treatment Not on filedocumented as of this encounter Visit Diagnoses Not on filedocumented in this encounter Care Teams Box Spring Maker Relationship Specialty Start Date End Date Momo Forbes PCP - General Family Practice 01/02/14 [place] [id number] documented as of this encounter
--- OUTSIDE RECORDS SUMMARY | 2022-03-30 18:43 | XMS_ITS | Encounter Summary ---
:1950 Author Organization [place] Address [facility] [place] [address] Care Team Providers Name Role Phone Momo Forbes A Primary Care Provider Encounter Details Date Type Department Care Team Description 01/30/2021 Telephone [facility] Transplant Viv Torres, BOGDAN [place] [phone] Social History Tobacco Use Types Packs/Day [...] Telephone Encounter - Barbie Ugalde, BOGDAN - 03/03/2021 4:11 PM CDT Images from the original note were not included. Message Received: Today Beny Staton, [facility] Barbie Ugalde, RN Diego has not ordered tacro 0.5mg in over a year. ??He just ordered 1mg today but not the 0.5mg. Beny Staton [facility] Specialty Pharmacist [phone] ARTS EDUCATION TEACHER task: Can you please call Diego to find out what dose of tacrolimus he is taking and notify coordinator if different than what is prescribed. Recommend repeat tacrolimus level for previously elevated level 7.3, goal 4-6. Thank you, Barbie Ugalde RN, BSN Solid Organ Transplant, Post Kidney and Pancreas Transplant Tattoo Designer [phone] Telephone Encounter - Viv Torres RN - 01/30/2021 11:20 AM CDT ISSUE: Tacrolimus 7.3, goal 4-6 Due for nephrology appt. PLAN: Call and confirm a 12 hour trough and current tacrolimus dose of 1.5 mg BID Any recent illness, diarrhea, or Medication changes? Recommend decreasing dose to 1 mg BID Repeat level in 1 week Message sent to scheduling to call and schedule follow up appt. OUTCOME: Spoke with Diego. He confirmed an accurate trough, but is taking 1 mg BID (not 1.5 mg BID). He will decrease his dose to 1 mg AM and 0.5 mg PM. Rx sent to specialty pharmacy. Discussed the need to repeat labs 1 week after dose change. Lab orders faxed. Reviewed that he is due for a transplant nephrology appt. Message sent to scheduling to call and schedule appt. documented in this encounter Plan of Treatment Not on filedocumented as of this encounter Visit Diagnoses Diagnosis Kidney transplanted Kidney replaced by transplant -donor kidney transplant recipie nt Kidney replaced by transplant documented in this encounter Care Teams Assistant Shift Supervisor Relationship Specialty Start Date End Date Momo Forbes PCP - General Family Practice 01/02/14 [facility] [address] [place] [id number] documented as of this encounter
--- OUTSIDE RECORDS SUMMARY | 2022-03-30 18:43 | XMS_ITS | Encounter Summary ---
:1950 Author Organization [place] Address [facility] [place] [address] Care Team Providers Name Role Phone Momo Forbes A Primary Care Provider Reason for Visit Reason Onset Date Comments Transplant Lab 01/29/2020 overdue labs Encounter Details Date Type Department Care Team Description 01/29/2020 Telephone [facility] Barbie Ugalde Tra nsplant Lab Transplant Clinic BOGDAN Nam (overdue labs) [address] [place] [phone] Social History Tobacco Use Types Packs/Day [...] Telephone Encounter - Barbie Ugalde RN - 01/30/2020 4:13 PM CDT Spoke with Diego. He states he did not get a kit for blood work sent to [facility] as requested. Explained kits are no longer being used for drug levels but new orders could be sent to lab if needed. [facility] [phone] (Phone) [facility] has annual order on file sent September 2019 and can fax to their new [facility] location that opened 2 weeks ago. Patient seen provider in [facility] who meryl Hemoglobin A1C and BMP butnot CBC or Tacrolimus level. Diego is agreeable to returning to lab in the next week to obtain post-transplant labs. Spoke to Diego about annual transplant nephrology follow up appt- Error he is not overdue and does not need to schedule a video visit at this time. Telephone Encounter - Tasia Don - 01/29/2020 3:25 PM CDT Patient Call: Voicemail Date/Time: 01/29/20 @ 3:06 PM Reason for call: Patient returned call Telephone Encounter - Barbie Ugalde RN - 01/29/2020 2:15 PM CDT Call was placed to patient again after he called back. Will return call tomorrow if have not heard back from him again today. Telephone Encounter - Tasia Mack - 01/29/2020 1:30 PM CDT Please connect with pt regarding message Telephone Encounter - Barbie Ugalde RN - 01/29/2020 11:27 AM CDT ISSUE: Overdue post-kidney transplant labs. Last done Apr 2019. PLAN: Dr. Presley reviewed importance of checking labs every 3 months at last nephrology appt 10/09/19. Review again with patient and request he get lab work lukasz. OUTCOME: VM message left for Diego to get labs as soon as possible. Please return call to coordinator if questions or concerns. Follow up if call back: Refills of medications needed? documented in this encounter Plan of Treatment Not on filedocumented as of this encounter Visit Diagnoses Not on filedocumented in this encounter Care Teams Fraternity House Cook Relationship Specialty Start Date End Date Momo Forbes PCP - General Family Practice 01/02/14 [facility] [address] [place] [address] documented as of this encounter
--- OUTSIDE RECORDS SUMMARY | 2022-03-30 18:43 | XMS_ITS | Encounter Summary ---
:1950 Author Organization [place] Address [address] [place] [address] Care Team Providers Name Role Phone Momo Forbes Primary Care Provider Joseph Quintana MD Unavailable Reason for Visit Reason Onset Date Comments Transplant 09/22/2021 Encounter Details Date Type Department Care Team Description 09/22/2021 Telephone [facility] BOGDAN Nam [address] [place] [address] [phone] Social History Tobacco Use Types Packs/Day [...] Telephone Encounter - Barbie Ugalde RN - 09/22/2021 2:16 PM SALES/MARKETING Post discharge from [facility] 09/20/21; to rehab/TCU due to wound on stump; can't wear prosthetic until healed. UTI on Cephelaxin 500 mg TID. [facility] TCU Unit Phone [facility] [phone] Phone RN mgr Baker [phone] Discussed Prograf dose was 1.5 mg at hospital. Should be 1 mg AM/0.5 mg PM. Repeat level with BMP [facility] 09/24/21. Verbal orders taken by admissions. Barbie Crisostomo, RN, BSN Solid Organ Transplant, Post Kidney and Pancreas Transplant Clinical Staff Rn [phone] S/MARKETING Telephone Encounter - Azael Rodriguez - 09/22/2021 12:09 PM CST [facility] under the new name [facility] TCU has questions regarding medicationsand lab. S/MARKETING documented in this encounter Plan of Treatment Not on filedocumented as of this encounter Visit Diagnoses Not on filedocumented in this encounter Care Teams Pickup Driver Relationship Specialty Start Date End Date Momo Forbes PCP - General Family Practice 01/02/14 [facility] [address] [place] [address] Joesph Quintana, Assigned Nephrology 03/29/21 MD Provider [address] [place] [address] [address] [place] [address] documented as of this encounter
--- OUTSIDE RECORDS SUMMARY | 2022-03-30 18:43 | XMS_ITS | Encounter Summary ---
:1950 Author Organization [place] Address [facility]0 [facility] [place] [address] Care Team Providers Name Role Phone Momo Forbes Primary Care Provider Reason for Visit Reason Onset Date Comments Critical Values 07/08/2020 Encounter Details Date Type Department Care Team Description 07/08/2020 Telephone [facility] Cristy Chen LPN C ritical [facility] Transplant Clinic [address] [place] [address] [phone] Social History Tobacco Use Types Packs/Day [...] Telephone Encounter - Barbie Ugalde RN - 07/08/2020 4:10 PM FRUIT BUYER Call placed to Latrell regarding the critical blood sugar value of 404 on 07/08. He states he was fasting for 12 hours. He has Humolog and Lantus for blood sugar correction. He seen his PCP, Dr. Forbes on Tuesday who commented on his hemoglobin A1C of 9 per Latrell. He is not sure who is managing diabetes or prescribing his insulin. He thought Dr. Presley was managing. Explained to Latrell that Dr. Presley resigned over the summer and that as a transplant signal tower director he was not prescribing his insulin. Per Dr. Presleynotblaze from visit in 10/09/19: # Diabetes: Poorly controlled (HbA1c >9%) Last HbA1c: 13.7%. - Management as per primary care. - Recommended all blood sugars stay below 200, with fasting between 90 and 130. ?? Latrell states that he lost his blood sugar meter but he can pick one up at [facility]. He asked how often he should be taking his blood sugar. Humalog orders are for with meals so recommended before meals and at HS. Latrell then recalls, If my blood sugar is over 150, that is when I give myself 20 units. Instructed Latrell to check with his primary doctor on the management of his diabetes. Latrell states he will be making some life style changes. Asked Latrell if his tacrolimus level was drawn today 07/08 with his other labs. He refers to the letterhe received in the mail (lab requisition letter). These standing orders had his tacrolimus level to be drawn. RNCC will await results of Tacrolimus level. Latrell states he returns to 08/08. T BUYER Telephone Encounter - Cristy Chen LPN - 07/08/2020 3:39 PM CST DATE: 07/08/2020 TIME OF RECEIPT FROM LAB: 3:30 PM LAB TEST: Glucose LAB VALUE: 407 RESULTS GIVEN WITH READ-BACK TO (PROVIDER): Barbie Ugalde RN TIME LAB VALUE REPORTED TO PROVIDER: 3:39 PM T BUYER documented in this encounter Plan of Treatment Not on filedocumented as of this encounter Visit Diagnoses Not on filedocumented in this encounter Care Teams Metal Cnc Operator Relationship Specialty Start Date End Date Momo Forbes PCP - General Family Practice 01/02/14 [facility] [address] [place] [address] documented as of this encounter
--- OUTSIDE RECORDS SUMMARY | 2022-03-30 18:43 | XMS_ITS | Encounter Summary ---
:1950 Author Organization [place] Address [facility]0 [facility] [place] [address] Care Team Providers Name Role Phone Momo Forbes Primary Care Provider Joseph Quintana MD Unavailable Encounter Details Date Type Department Care Team Description 04/30/[address] [facility] Outside, Provide r Results Molecular Diagnostic s [address] [place] [phone] Social History Tobacco Use Types Packs/Day Years [...] Procedure Name Priority Date/Time Associated Comments Diagnosis CBC WITH PLATELETS & Routine 04/30/2021 11:20 Res ults for this DIFFERENTIAL AM CDT procedure are i n the results section. TACROLIMUS BY TANDEM Routine 04/30/2021 11:20 Res ults for this MASS SPECTROMETRY AM CDT procedure are in the results section. documented in this encounter Results (ABNORMAL) Tacrolimus level (04/30/2021 11:20 AM CDT) athologist Signature Tacrolimus(FK- 3.9 (L) 5.0 - 15.0 NON-INTERFACED 506) ng/mL (ONBASE SCANS) (External) Specimen (Source) Anatomical Collection Method Collection Time Re ceived Time Location / / Volume Laterality Blood 04/30/2021 11:20 AM CDT Narrative JESSICA PFT - 05/05/2021 10:14 AM CDT Verified by Andrade Barajas on 05/05/2021. Patient Reported LAB - BLOOD ORDERABLES Performing Organization Address City/State/ZIP Code Phon e Number JESSICA PFT NON-INTERFACED (ONBASE SCANS) (ABNORMAL) CBC with Platelets & Differential (04/30/2021 11:20 AM CDT) [facility] gist Method Time Signature WBC Count 4.82 (L) 5.00 - NON-INTERFACE (External) 10.00 D (ONBASE K/uL SCANS) RBC Count 4.72 4.32 - NON-INTERFACE (External) 5.72 M/uL D (ONBASE SCANS) Hemoglobin 13.1 (L) 13.5 - NON-INTERFACE (External) 17.5 D (ONBASE GM/DL SCANS) Hematocrit 41.3 38.8 - NON-INTERFACE (External) 50.0 % D (ONBASE SCANS) MCV (External) 88 81 - 95 NON-INTERFACE FL D (ONBASE SCANS) MCH (External) 28 27 - 34 NON-INTERFACE PG D (ONBASE SCANS) MCHC (External) 32 32 - 36 NON-INTERFACE GM/DL D (ONBASE SCANS) Platelet Count 132 (L) 150 - 450 NON-INTERFACE (External) K/UL D (ONBASE SCANS) % Neutrophils 70.9 (H) 50.0 - NON-INTERFACE (External) 70.0 % D (ONBASE SCANS) % Lymphocytes 16.2 (L) 25.0 - NON-INTERFACE (External) 45.0 % D (ONBASE SCANS) % Monocytes 7.5 0.00 - NON-INTERFACE (External) 11.0 % D (ONBASE SCANS) % Eosinophils 5.2 0.0 - 7.0 NON-INTERFACE (External) % D (ONBASE SCANS) % Basophils 0.2 0.0 - 3.0 NON-INTERFACE (External) % D (ONBASE SCANS) % Immature 0.0 % NON-INTERFACE Granulocytes D (ONBASE (External) SCANS) RDW (External) 15.3 11.5 - NON-INTERFACE 15.3 % D (ONBASE SCANS) Absolute 3.42 1.70 - NON-INTERFACE Neutrophils 7.00 K/uL D (ONBASE (External) SCANS) Absolute 0.78 (L) 0.90 - NON-INTERFACE Lymphocytes 2.90 K/uL D (ONBASE (External) SCANS) Absolute 0.36 0.30 - NON-INTERFACE Monocytes 0.90 % D (ONBASE (External) SCANS) Absolute 0.25 0.00 - NON-INTERFACE Eosinophils 0.50 K/uL D (ONBASE (External) SCANS) Absolute 0.01 0.00 - NON-INTERFACE Basophils 0.20 K/uL D (ONBASE (External) SCANS) Absolute Immature 0.00 K/uL NON-INTERFAC E Granulocytes D (ONBASE (External) SCANS) Specimen (Source) Anatomical Collection Method Collection Time Re ceived Time Location / / Volume Laterality Blood 04/30/2021 11:20 AM CDT Narrative JESSICA PFT - 05/03/2021 8:36 AM CDT Verified by Praful Huff on 2020. Patient Reported LAB - BLOOD ORDERABLES Performing Organization Address City/State/ZIP Code Phon e Number JESSICA PFT NON-INTERFACED (ONBASE SCANS) documented in this encounter Visit Diagnoses Not on filedocumented in this encounter Care Teams Umbrella Finisher Relationship Specialty Start Date End Date Momo Forbes PCP - General Family Practice 01/02/14 [facility] [address] [place], [place] [id number] Joseph Quintana, Assigned Nephrology 03/29/21 MD Provider [address] [facility] [address] [place] [address] documented as of this encounter
--- OUTSIDE RECORDS SUMMARY | 2022-03-30 18:43 | XMS_ITS | Encounter Summary ---
:1950 Author Organization [place] Address [facility] [place] [address] Care Team Providers Name Role Phone Momo Forbes A Primary Care Provider Reason for Visit Reason Onset Date Comments Transplant Lab 05/28/2020 Encounter Details Date Type Department Care Team Description 05/28/2020 Telephone [facility] Barbie Ugalde Tra nsplant Lab Transplant Clinic BOGDAN Nam [address] [place] [address] [phone] Social History Tobacco Use Types Packs/Day [...] Telephone Encounter - Barbie Ugalde RN - 06/02/2020 10:53 AM CDT Second Call placed to Diego to review his abnormal labs; voicemail left asking for call back. Orderssent for repeat labs. Telephone Encounter - Barbie Ugalde RN - 05/30/2020 1:25 PM CDT Images from the original note were not included. ISSUE: Labs 05/26/20 1) Blood Glucose 303; appears uncontrolled 2) Tacrolimus IR level 2.5 on 05/26/20 at 1025, goal 4-6, dose Prograf 1 mg BID. PLAN: 1) ??Per last Transplant Nephrology Appt 10/09/2019: # Diabetes: Poorly controlled (HbA1c >9%) Last HbA1c: 13.7%. - Management as per primary care. - Recommended all blood sugars stay below 200, with fasting between 90 and 130. 2) Please call patient and confirm this was an accurate 12-hour trough. Verify Tacrolimus IR dose 1 mg BID. Confirm no new medications or illness. Confirm no missed doses. If accurate trough and accurate dose, increase Tacrolimus IR dose to 1.5 mg BID and repeat labs in 1 week. OUTCOME: Detailed VM message left for patient. Instructed to increase dose if accurate 12 hour trough, no infection/illness and can confirm current dose 1 mg BID. Will not make increase with pharmacy until her returns call. Order placed for repeat BMP, Tacrolimus Level, DSA, Hemoglobin A1C, UPC. Message Received: 2 days ago Message Contents Satish Gómez MD [place], Christin Rebecca, BOGDAN ?? Yes and obtain DSA as well as Hb A1c please. Previous Messages ----- Message ----- From: Barbie Ugalde RN Sent: 05/28/2020 ??11:53 AM CDT To: Satish Gómez MD Increased proteinuria reported in mg/dL on original report. Compared to last results this has more than doubled. For whatever reason, not BMP or Tac level results appear to have been completed or results not available. Repeat in 1 week with BMP and Tac level? Telephone Encounter - Barbie Ugalde RN - 05/28/2020 11:28 AM CDT Images from the original note were not included. ISSUE: Proteinuria 1.62 mg/dL on 05/26/20 at 1025 collected at [facility] [phone] (Phone) CBC appears as expected Missing BMP and Tacrolimus levels PLAN: Call to obtain missing results if available. Assess causes of proteinuria. Result routed to Dr. Gómez for comment: Message Received: Today Message Contents Satish Gómez MD Blaisdell, Christin Rebecca, BOGDAN ?? Yes and obtain DSA as well as Hb A1c please. Previous Messages ----- Message ----- From: Barbie Ugalde RN Sent: 05/28/2020 ??11:53 AM CDT To: Satish Gómez MD Increased proteinuria reported in mg/dL on original report. Compared to last results this has more than doubled. For whatever reason, not BMP or Tac level results appear to have been completed or results not available. Repeat in 1 week with BMP and Tac level? documented in this encounter Plan of Treatment Not on filedocumented as of this encounter Visit Diagnoses Not on filedocumented in this encounter Care Teams Paint Prepper Relationship Specialty Start Date End Date Momo Forbes PCP - General Family Practice 01/02/14 [facility] [address] [place] [address] documented as of this encounter
--- OUTSIDE RECORDS SUMMARY | 2022-03-30 18:43 | XMS_ITS | Encounter Summary ---
:1950 Author Organization [place] Address [facility] [place] [address] Care Team Providers Name Role Phone Forbes, Momo He Primary Care Provider Encounter Details Date Type Department Care Team Description 10/23/2020 Telephone [facility] Barbie Ugalde Transplant Clinic BOGDAN Nam [address] [place], [place] [phone] Social History Tobacco Use Types Packs/Day [...] Telephone Encounter - Barbie Ugalde RN - 10/23/2020 4:27 PM PROMOTIONAL MODEL Returned call and left second voicemail message. Patient mentioned in previous phone call he was interested in donating his body upon passing to [facility] for science. Please sent to following website for more information: [email or web address]-[email or web address]-[email or web address]-[email or web address] OTIONAL MODEL Telephone Encounter - Gladis Sosa RN - 10/23/2020 3:21 PM CST Patient Call: Voicemail Date/Time: 10/23/20 139pm Reason for call: Patient left a message requesting a call back OTIONAL MODEL documented in this encounter Plan of Treatment Not on filedocumented as of this encounter Visit Diagnoses Not on filedocumented in this encounter Care Teams Hereditary Cancer Program Coordinator Relationship Specialty Start Date End Date Momo Forbes PCP - General Family Practice 01/02/14 [facility] [address] [place] [address] documented as of this encounter
--- OUTSIDE RECORDS SUMMARY | 2022-03-30 18:43 | XMS_ITS | Encounter Summary ---
:1950 Author Organization [place] Address [address] [place] [address]. [place] [address] Care Team Providers Name Role Phone Momo Forbes Primary Care Provider Joseph Quintana MD Unavailable Reason for Visit Reason Onset Date Comments Refill Request 08/25/2021 Prograf 0.5mg Encounter Details Date Type Department Care Team Description 08/25/2021 Telephone [facility] [place] Richey, Refil l Request (Prograf Transplant Clinic 0.5mg) [address] [place] [phone] Social History Tobacco Use Types Packs/Day Years [...] this encounter Miscellaneous Notes Telephone Encounter - Meghan Mccormack [facility] - 08/25/2021 2:15 PM CST Medication/Refill approved per CPA: [facility] COLLABORATIVE AGREEMENT FOR IMMUNOSUPPRESSENT PRESCRIPTION MODIFICATION. Routing encounter to Transplant as an FYI. Thanks, Meghan Mccormack, PharmD Specialty Pharmacist/Transplant [facility] [phone] SION NURSE documented in this encounter Plan of Treatment Not on filedocumented as of this encounter Visit Diagnoses Diagnosis -donor kidney transplant recipie nt Kidney replaced by transplant Kidney transplanted Kidney replaced by transplant documented in this encounter Care Teams Is Consultant Relationship Specialty Start Date End Date Momo Forbes PCP - General Family Practice 01/02/14 [facility] [address] [place] [address] Joseph Quintana, Assigned Nephrology 03/29/21 MD Provider [address] [facility] [address] [facility] [address] [place] [address] documented as of this encounter
--- OUTSIDE RECORDS SUMMARY | 2022-03-30 18:43 | XMS_ITS | Encounter Summary ---
:1950 Author Organization [place] Address [address] [place] [address] Care Team Providers Name Role Phone Momo Forbes Primary Care Provider Joseph Quintana MD Unavailable Encounter Details Date Type Department Care Team Description 11/16/2021 External Order [facility] Outside, Provide r Results Molecular Diagnostic s [address] [place] [address] Social History Tobacco Use Types Packs/Day Years [...] Procedure Name Priority Date/Time Associated Comments Diagnosis PSA TUMOR MARKER Routine 11/16/2021 7:12 PM Resul ts for this CDT procedure are i n the results section. LIPID PROFILE Routine 11/16/2021 7:12 PM Results for this CDT procedure are i n the results section. ALT Routine 11/16/2021 7:12 PM Results f or this CDT procedure are i n the results section. BASIC METABOLIC PANEL Routine 11/16/2021 7:12 PM Results for this CDT procedure are i n the results section. CBC WITH PLATELETS & Routine 11/16/2021 4:35 PM R esults for this DIFFERENTIAL CDT procedure are i n the results section. HEMOGLOBIN A1C Routine 11/16/2021 2:05 PM Results for this CDT procedure are i n the results section. documented in this encounter Results PSA tumor marker (11/16/2021 7:12 PM CDT) P athologist Signature PSA (External) 0.30 0.10 - NON-INTERFACED 4.00 NG/ML (ONBASE SCANS) Specimen (Source) Anatomical Collection Method Collection Time Re ceived Time Location / / Volume Laterality Blood 11/16/2021 7:12 PM CDT Narrative [facility] - 12/02/2021 8:18 AM CDT Verified by Yudi Ruano on . Felicia Tate MD LAB - BLOOD ORDERABLES Performing Organization Address City/State/ZIP Code Phon e Number [facility] NON-INTERFACED (ONBASE SCANS) (ABNORMAL) Basic metabolic panel (11/16/2021 7:12 PM CDT) P athologist Signature Glucose 271 (H) 60 - 115 NON-INTERFACE (External) mg/dL D (ONBASE SCANS) Urea Nitrogen 32 (H) 7 - 30 NON-INTERFACE (External) mg/dL D (ONBASE SCANS) Creatinine 1.8 (H) 0.5 - 1.5 NON-INTERFACE (External) mg/dL D (ONBASE SCANS) Sodium 136 135 - 149 NON-INTERFACE (External) mmol/L D (ONBASE SCANS) Potassium 4.4 3.6 - 5.1 NON-INTERFACE (External) mmol/L D (ONBASE SCANS) Chloride 101 96 - 114 NON-INTERFACE (External) mmol/L D (ONBASE (External) SCANS) CO2 (External) 23 20 - 32 NON-INTERFACE mmol/L D (ONBASE SCANS) Calcium 9.7 8.4 - 10.6 NON-INTERFACE (External) mg/dL D (ONBASE SCANS) Specimen (Source) Anatomical Collection Method Collection Time Re ceived Time Location / / Volume Laterality Blood 11/16/2021 7:12 PM CDT Narrative [facility] - 12/02/2021 8:18 AM CDT Verified by Yudi Ruano on . Felicia Tate MD LAB - BLOOD ORDERABLES Performing Organization Address City/State/ZIP Code Phon e Number [facility] NON-INTERFACED (ONBASE SCANS) ALT (11/16/2021 7:12 PM CDT) athologist Signature ALT (External) 9 4 - 50 U/L NON-INTERFACED (ONBASE SCANS) Specimen (Source) Anatomical Collection Method Collection Time Re ceived Time Location / / Volume Laterality Blood 11/16/2021 7:12 PM CDT Narrative [facility] - 12/02/2021 8:18 AM CDT Verified by Yudi Ruano on . Felicia Tate MD LAB - BLOOD ORDERABLES Performing Organization Address [facility] Code Phon e Number [facility] NON-INTERFACED (ONBASE SCANS) (ABNORMAL) Lipid Profile (11/16/2021 7:12 PM CDT) [facility] Method Time Signature Cholesterol 98 90 - 199 NON-INTERFACE (External) MG/DL D (ONBASE SCANS) Triglycerides 113 40 - 149 NON-INTERFACE (External) MG/DL D (ONBASE SCANS) LDL-Cholesterol 39 <100 mg/dL NON-INTERFACE (External) D (ONBASE SCANS) HDL Cholesterol 36 (L) >=40 mg/dL NON-INTERFACE (External) D (ONBASE SCANS) Specimen (Source) Anatomical Collection Method Collection Time Re ceived Time Location / / Volume Laterality Blood 11/16/2021 7:12 PM CDT Narrative [facility] - 12/02/2021 8:18 AM CDT Verified by Yudi Ruano on . Felicia Tate MD LAB - BLOOD ORDERABLES Performing Organization Address City/[facility]/ZIP Code Phon e Number [facility] NON-INTERFACED (ONBASE SCANS) (ABNORMAL) CBC with Platelets & Differential (11/16/2021 4:35 PM CDT) [facility] Method Time Signature WBC Count 6.8 4.5 - NON-INTERFACE (External) 11.0 K/uL D (ONBASE SCANS) RBC Count 4.68 4.30 - NON-INTERFACE (External) 5.90 M/UL D (ONBASE SCANS) Hemoglobin 12.6 (L) 13.5 - NON-INTERFACE (External) 17.5 D (ONBASE GM/DL SCANS) Hematocrit 39.4 37 - 53 % NON-INTERFACE (External) D (ONBASE SCANS) MCV (External) 84 80 - 100 NON-INTERFACE FL D (ONBASE SCANS) MCH (External) 27 26 - 34 NON-INTERFACE PG D (ONBASE SCANS) MCHC (External) 32 32 - 36 NON-INTERFACE GM/DL D (ONBASE SCANS) Platelet Count 147 140 - 440 NON-INTERFACE (External) K/UL D (ONBASE SCANS) % Neutrophils 69.1 42 - 72 % NON-INTERFACE (External) D (ONBASE SCANS) % Lymphocytes 19.5 (L) 20 - 44 % NON-INTERFACE (External) D (ONBASE SCANS) % Monocytes 7.7 0 - 11 % NON-INTERFACE (External) D (ONBASE SCANS) % Eosinophils 3.4 0 - 7 % NON-INTERFACE (External) D (ONBASE SCANS) % Basophils 0.3 0.0 - 3.0 NON-INTERFACE (External) % D (ONBASE SCANS) Absolute 4.7 1.7 - 7.0 NON-INTERFACE Neutrophils K/UL D (ONBASE (External) SCANS) Absolute 1.3 0.9 - 2.9 NON-INTERFACE Lymphocytes K/UL D (ONBASE (External) SCANS) Absolute 0.5 0.0 - 0.9 NON-INTERFACE Monocytes K/UL D (ONBASE (External) SCANS) Absolute 0.2 0.0 - 0.5 NON-INTERFACE Eosinophils K/UL D (ONBASE (External) SCANS) Absolute 0.0 0.0 - 0.3 NON-INTERFACE Basophils K/UL D (ONBASE (External) SCANS) Absolute Immature 0.0 K/uL NON-INTERFAC E Granulocytes D (ONBASE (External) SCANS) % Immature 0.0 % NON-INTERFACE Granulocytes D (ONBASE (External) SCANS) Specimen (Source) Anatomical Collection Method Collection Time Re ceived Time Location / / Volume Laterality Blood 11/16/2021 4:35 PM CDT Narrative [facility] - 12/02/2021 8:18 AM CDT Verified by Tellinghuisen, Priscilla J on 12/02/2021. Provider Outside LAB - BLOOD ORDERABLES Performing Organization Address City/State/ZIP Code Phon e Number [facility] NON-INTERFACED (ONBASE SCANS) (ABNORMAL) Hemoglobin A1c (11/16/2021 2:05 PM CDT) Analysis Performed At Patho logist Time Signature Hemoglobin A1C 10.2 (H) <=6.9 % NON-INTERFACE (External) D (ONBASE SCANS) Specimen (Source) Anatomical Collection Method Collection Time Re ceived Time Location / / Volume Laterality Blood 11/16/2021 2:05 PM CDT Narrative [facility] - 12/02/2021 8:17 AM CDT Verified by Praful Huff on 2021. Momo Forbes LAB - BLOOD ORDERABLES Performing Organization Address City/[facility]/ZIP Code Phon e Number [facility] NON-INTERFACED (ONBASE SCANS) documented in this encounter Visit Diagnoses Not on filedocumented in this encounter Care Teams Assistant Director Of Public Works Relationship Specialty Start Date End Date Momo Forbes PCP - General Family Practice 01/02/14 [facility] [address] [place] [address] Joseph Quintana, Assigned Nephrology 03/29/21 MD Provider [address] [facility] 353 [facility] [address] [place], [place] [address] documented as of this encounter
--- OUTSIDE RECORDS SUMMARY | 2022-03-30 18:43 | XMS_ITS | Encounter Summary ---
:1950 Author Organization [place] Address [facility] [place] [address] Care Team Providers Name Role Phone Momo Forbes Primary Care Provider Reason for Visit Reason Onset Date Comments Refill Request 05/07/2020 [facility] and Pr ograf Encounter Details Date Type Department Care Team Description 05/07/2020 Refill [facility] Mariano, Joseph Refill R equest Nephrology Clinic MD Herminio (Mycophenplate and [address] Prograf) [address] [place] [phone] Social History Tobacco Use Types Packs/Day Years [...] transplant documented in this encounter Care Teams Voice Network Administrator Relationship Specialty Start Date End Date Momo Forbes PCP - General Family Practice 01/02/14 [facility] [address] [place] [address] documented as of this encounter
--- OUTSIDE RECORDS SUMMARY | 2022-03-30 18:43 | XMS_ITS | Encounter Summary ---
:1950 Author Organization [place] Address [facility] [place] [address] Care Team Providers Name Role Phone Momo Forbes Primary Care Provider Joseph Quintana MD Unavailable Encounter Details Date Type Department Care Team Description 07/08/2020 External Order [facility] Outside, Provider Results Transplant Clinic [address] [place] [phone] Social History Tobacco Use Types Packs/Day [...] encounter Procedures Procedure Name Priority Date/Time Associated Diagnosis Comme nts EXTERNAL LAB Routine 07/08/2020 9:23 AM Results f or this RESULTS [facility]GG[facility]ER procedure are i n the results section. documented in this encounter Results External Lab Results (07/08/2020 9:23 AM LUGGAGE LINER) Analysis Performed At Patho logist Time Signature Scan Lab View Image LABDE SCAN Results (External) Comment: HLA Antibody Screen, Class I an d Class II Specimen (Source) Anatomical Collection Method Collection Time Re ceived Time Location / / Volume Laterality 07/08/2020 9:23 AM LUGGAGE LINER Narrative [facility] - 07/16/2020 2:42 PM LUGGAGE LINER Verified by Ruperto Pepper on 07/15/20 20. Patient Reported LABORATORY Performing Organization Address City/State/ZIP Code Phon e Number [facility] LABDE SCAN documented in this encounter Visit Diagnoses Not on filedocumented in this encounter Care Teams Body Trimmer Relationship Specialty Start Date End Date Momo Forbes PCP - General Family Practice 01/02/14 [facility] [address] [place] [address] Joseph Quintana, Assigned Nephrology 03/29/21 MD Provider [address] [place] [address] [address] [place], [place] [id number] documented as of this encounter
--- OUTSIDE RECORDS SUMMARY | 2022-03-30 18:43 | XMS_ITS | Encounter Summary ---
:1950 Author Organization [place] Address [address] [place] [address] Care Team Providers Name Role Phone Momo Forbes Primary Care Provider Joseph Quintana MD Unavailable Reason for Visit Reason Onset Date Comments Transplant Lab 05/04/2021 Encounter Details Date Type Department Care Team Description 05/04/2021 Telephone [facility] Transplant Krys Garcia, Transplant Lab Clinic RN [address] [place] [phone] Social History Tobacco Use Types [...] Telephone Encounter - Barbie Ugalde, BOGDAN - 05/05/2021 11:54 AM CDT Images from the original note were not included. 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 Most recently 13.1 (ref range 13.5-17.5). PLAN: Call Latrell to assess for GI bleed. Recommend update to date on age appropriate cancer screening such as colonoscopy. OUTCOME: RNCC left patient voicemail message regarding trend down in hemoglobin. Recommended follow up with PCP for above plan. Will continue to monitor hgb with post-transplant labs. Addendum: Latrell returned call. He denies any bleeding nor black tarry or maroon colored stools. he had colonoscopy with [facility] about a year ago. Appears in CareEverywhere colonoscopy was 03/20/2015. Latrell denies infectious symptoms currently but reports he had R foot surgery at [facility] this last winter for diabetic foot ulcer. Infection in bottom of foot; laid up since Sep. Pretty well healed except a little speck. Follows up with Dr. Chatterjee. Will check iron panel on next labs. Orders sent. Barbie Ugalde RN, BSN Solid Organ Transplant, Post Kidney and Pancreas Transplant Scrip Clerk [phone] Telephone Encounter - Krys Garcia RN - 05/04/2021 8:09 AM CDT ISSUE: Falling hemoglobin. documented in this encounter Plan of Treatment Not on filedocumented as of this encounter Visit Diagnoses Not on filedocumented in this encounter Care Teams [place] W[place] Relationship Specialty Start Date End Date Momo Forbes PCP - General Family Practice 01/02/14 [facility] [address] [place] [address] Joseph Quintana, Assigned Nephrology 03/29/21 MD Provider 717 [facility] 353 [facility] [address] [place] [address] documented as of this encounter
--- OUTSIDE RECORDS SUMMARY | 2022-03-30 18:43 | XMS_ITS | Encounter Summary ---
:1950 Author Organization [place] Address [address] [place] [address]. [place] [address] Care Team Providers Name Role Phone Momo Forbes Primary Care Provider Encounter Details Date Type Department Care Team Description 03/05/2021 Travel Social History Tobacco Use Types Packs/Day Years [...] Assigned at Date Recorded Not on file COVID-19 Exposure Response Date Recorded In the last month, have you been in contact with No / Unsure 03/05/2021 1:15 PM CDT someone who was confirmed or suspected to have Coronavirus / COVID-19? documented as of this encounter Plan of Treatment Not on filedocumented as of this encounter Visit Diagnoses Not on filedocumented in this encounter Care Teams Admittance Attendant Relationship Specialty Start Date End Date Momo Forbes PCP - General Family Practice 01/02/14 [facility] [address] [place] [address] documented as of this encounter
--- OUTSIDE RECORDS SUMMARY | 2022-03-30 18:43 | XMS_ITS | Encounter Summary ---
:1950 Author Organization [place] Address [facility] [place] [address] Care Team Providers Name Role Phone Momo Forbes Primary Care Provider Joseph Quintana MD Unavailable Encounter Details Date Type Department Care Team Description 02/02/2021 External Order [facility] Outside, Provider Results Transplant Clinic [address] [place] [phone] Social History Tobacco Use Types Packs/Day [...] Name Priority Date/Time Associated Diagnosis Comme nts COVID-19 VIRUS Routine 02/02/2021 10:54 AM Result s for this (CORONAVIRUS) BY CDT procedure a re in PCR (EXTERNAL the results RESULT) section. documented in this encounter Results COVID-19 Virus (Coronavirus) by PCR (External Result) (02/02/2021 10:54 AM CDT) P athologist Signature COVID-19 Virus Negative Negative COVID-19 by PCR EXTERNAL (External RESULTS Result) Specimen (Source) Anatomical Collection Method Collection Time Re ceived Time Location / / Volume Laterality 02/02/2021 10:54 AM CDT Narrative [facility] - 02/04/2021 2:10 PM CDT Verified by Cassie Florian on 02/04/2021. Performed by: [facility] [address] [place], [place] ??[phone] Patient Reported LABORATORY Performing Organization Address City/State/ZIP Code Phon e Number [facility] COVID-19 EXTERNAL COVID-[address] RESULTS Result Scanned into Patient Record by [employer] Refer to Result Comment/Narrative for exact performing laboratory documented in this encounter Visit Diagnoses Not on filedocumented in this encounter Care Teams Testing Manager Relationship Specialty Start Date End Date Momo Forbes PCP - General Family Practice 01/02/14 [facility] [address] [place] [address] Joseph Quintana, Assigned Nephrology 03/29/21 MD Provider 717 [facility] 353 [facility] [address] [place] [address] documented as of this encounter
--- OUTSIDE RECORDS SUMMARY | 2022-03-30 18:43 | XMS_ITS | Encounter Summary ---
:1950 Author Organization [place] Address [address] [place] [address]. [place] [address] Care Team Providers Name Role Phone Momo Forbes Primary Care Provider Joseph Quintana MD Unavailable Reason for Visit Reason Onset Date Comments Refill Request 08/25/2021 Encounter Details Date Type Department Care Team Description 08/25/2021 Refill [facility] Transplant Debbie Calderon LPN Refill Request Clinic [address] [place] [phone] Social History Tobacco Use Types Packs/Day [...] transplant documented in this encounter Care Teams Social Contact Worker Relationship Specialty Start Date End Date Momo Forbes PCP - General Family Practice 01/02/14 [facility] [address] [place] [address] Joseph Quintana, Assigned Nephrology 8/8/21 MD Provider 7 [facility] 353 [facility] [address] [place], [place] [address] documented as of this encounter
--- OUTSIDE RECORDS SUMMARY | 2022-03-30 18:43 | XMS_ITS | Encounter Summary ---
:1950 Author Organization [place] Address [facility] [place] [address] Care Team Providers Name Role Phone Momo Forbes A Primary Care Provider Reason for Visit Reason Onset Date Comments Transplant 02/03/2021 spoke w pt and donna vallejoed annual neph appt on 03/05/21 Encounter Details Date Type Department Care Team Description 02/03/2021 Telephone [facility] Barbie Ugaldelanlynda (spoke w pt Transplant Clinic BOGDAN Nam and confirmed annual [facility] neph appt on 03/05/21) [place] [phone] Social History Tobacco Use Types [...] this encounter Miscellaneous Notes Telephone Encounter - Chastity Rooney - 02/03/2021 3:05 PM CDT spoke w pt and confirmed annual neph appt on 03/05/21 documented in this encounter Plan of Treatment Not on filedocumented as of this encounter Visit Diagnoses Not on filedocumented in this encounter Care Teams Recruitment Director Relationship Specialty Start Date End Date Momo Forbes PCP - General Family Practice 01/02/14 [facility] [address] [place] [address] documented as of this encounter
--- OUTSIDE RECORDS SUMMARY | 2022-03-30 18:43 | XMS_ITS | Encounter Summary ---
:1950 Author Organization [place] Address [facility] [place] [address] Care Team Providers Name Role Phone Momo Forbes Primary Care Provider Joseph Quintana MD Unavailable Encounter Details Date Type Department Care Team Description 08/08/2020 External Order [facility] Outside, Provider Results Transplant Clinic [address] [place] [phone] Social History Tobacco Use Types Packs/Day [...] Procedure Name Priority Date/Time Associated Comments Diagnosis HEMOGLOBIN A1C Routine 08/08/2020 11:43 Results f or this AM AIR CONDITIONING TECHNICIAN procedure are i n the results section. TACROLIMUS BY TANDEM Routine 08/08/2020 11:34 Res ults for this MASS SPECTROMETRY AM AIR CONDITIONING TECHNICIAN procedure are in the results section. LIPID PROFILE Routine 08/08/2020 11:34 Results fo r this AM AIR CONDITIONING TECHNICIAN procedure are i n the results section. ALT Routine 08/08/2020 11:34 Results for this AM AIR CONDITIONING TECHNICIAN procedure are i n the results section. BASIC METABOLIC PANEL Routine 08/08/2020 11:34 Re sults for this AM AIR CONDITIONING TECHNICIAN procedure are i n the results section. documented in this encounter Results (ABNORMAL) Hemoglobin A1c (08/08/2020 11:43 AM AIR CONDITIONING TECHNICIAN) Analysis Performed At Patho logist Time Signature Hemoglobin A1C 10.2 (H) <=6.9 % LABDE SCAN (External) Specimen (Source) Anatomical Collection Method Collection Time Re ceived Time Location / / Volume Laterality Blood specimen 08/08/2020 11:43 (specimen) AM AIR CONDITIONING TECHNICIAN Narrative [facility] - 08/11/2020 1:28 PM AIR CONDITIONING TECHNICIAN Verified by Praful Huff on 2019. Patient Reported LAB - BLOOD ORDERABLES Performing Organization Address City/State/ZIP Code Phon e Number [facility] LABDE SCAN Tacrolimus level (08/08/2020 11:34 AM AIR CONDITIONING TECHNICIAN) athologist Signature Tacrolimus(FK-5 11.7 See scan LABDE SCAN 06) (External) ng/mL Specimen (Source) Anatomical Collection Method Collection Time Re ceived Time Location / / Volume Laterality Blood specimen 08/08/2020 11:34 (specimen) AM AIR CONDITIONING TECHNICIAN Narrative [facility] - 08/11/2020 1:28 PM AIR CONDITIONING TECHNICIAN Verified by Praful Huff on 2019. Patient Reported LAB - BLOOD ORDERABLES Performing Organization Address City/State/ZIP Code Phon e Number [facility] LABDE SCAN (ABNORMAL) Lipid Profile (08/08/2020 11:34 AM AIR CONDITIONING TECHNICIAN) [facility] gist Method Time Signature Cholesterol 79 (L) 90 - 200 LABDE SCAN (External) MG/DL Triglycerides 86 40 - 197 LABDE SCAN (External) MG/DL LDL-Cholesterol 29 <100 mg/dL LABDE SCAN (External) HDL Cholesterol 33 (L) >=40 mg/dL LABDE SCAN (External) Specimen (Source) Anatomical Collection Method Collection Time Re ceived Time Location / / Volume Laterality Blood specimen 08/08/2020 11:34 (specimen) AM AIR CONDITIONING TECHNICIAN Narrative [facility] - 08/11/2020 1:28 PM AIR CONDITIONING TECHNICIAN Verified by Praful Huff on 2019. Patient Reported LAB - BLOOD ORDERABLES Performing Organization Address City/State/ZIP Code Phon e Number [facility] LABDE SCAN ALT (08/08/2020 11:34 AM AIR CONDITIONING TECHNICIAN) P athologist Signature ALT (External) 8 4 - 50 U/L LABDE SCAN Specimen (Source) Anatomical Collection Method Collection Time Re ceived Time Location / / Volume Laterality Blood specimen 08/08/2020 11:34 (specimen) AM AIR CONDITIONING TECHNICIAN Narrative [facility] - 08/11/2020 1:28 PM AIR CONDITIONING TECHNICIAN Verified by Praful Huff on 2019. Patient Reported LAB - BLOOD ORDERABLES Performing Organization Address City/State/ZIP Code Phon e Number [facility] LABDE SCAN (ABNORMAL) Basic metabolic panel (08/08/2020 11:34 AM AIR CONDITIONING TECHNICIAN) P athologist Signature Glucose 119 (H) 60 - 115 LABDE SCAN (External) mg/dL Urea Nitrogen 25 7 - 30 LABDE SCAN (External) mg/dL Creatinine 1.5 0.5 - 1.5 LABDE SCAN (External) mg/dL Sodium 142 135 - 149 LABDE SCAN (External) mmol/L Potassium 4.2 3.6 - 5.1 LABDE SCAN (External) mmol/L Chloride 111 96 - 114 LABDE SCAN (External) mmol/L (External) CO2 (External) 27 20 - 32 LABDE SCAN mmol/L Calcium 9.8 8.4 - 10.6 LABDE SCAN (External) mg/dL Specimen (Source) Anatomical Collection Method Collection Time Re ceived Time Location / / Volume Laterality Blood specimen 08/08/2020 11:34 (specimen) AM AIR CONDITIONING TECHNICIAN Narrative [facility] - 08/11/2020 1:28 PM AIR CONDITIONING TECHNICIAN Verified by Praful Huff on 2019. Patient Reported LAB - BLOOD ORDERABLES Performing Organization Address City/State/ZIP Code Phon e Number [facility] LABDE SCAN documented in this encounter Visit Diagnoses Not on filedocumented in this encounter Care Teams Hand Carver Relationship Specialty Start Date End Date Momo Forbes PCP - General Family Practice 01/02/[address] [address] Joseph Quintana, Assigned Nephrology 03/29/21 MD Provider [address] [place] [address] documented as of this encounter
--- OUTSIDE RECORDS SUMMARY | 2022-03-30 18:43 | XMS_ITS | Encounter Summary ---
:1950 Author Organization [place] Address [address] [facility] [place] [address] Care Team Providers Name Role Phone Forbes, Ton Primary Care Provider Reason for Visit Reason Comments RECHECK Follow Up [place] Encounter Details Date Type Department Care Team Description 03/05/[address] [facility] Joseph Quintana HTN, ki dney transplant related (Primary Dx); Nephrology Clinic MD Herminio Kidney replaced by transplant; [address] Aftercare following organ tr ansplant; [address] [place] [address] [address] [facility] Immunosu ppression (H); [address] Vitamin D deficiency; [place] [id number] [phone] Social History Tobacco Use Types Packs/Day Years [...] / COVID-19? documented as of this encounter Patient Instructions Patient InstructionsJoseph Quintana MD - 03/05/2021 1:35 PM CDT Increase amlodipine to 10 mg nightly. Recommend weight loss for overall health by increasing exercise and watching caloric intake. Would talk to PCP about referral to a local Weight Management Program. documented in this encounter Progress Notes Joseph Quintana MD - 03/05/2021 1:35 PM CDT Diego is a 70 year old who is being evaluated via a billable telephone visit. What phone number would you like to be contacted at? [phone] How would you like to obtain your AVS? Mail a copy Phone call duration: 21 minutes CHRONIC TRANSPLANT NEPHROLOGY VISIT Assessment & Plan # DDKT: Stable to improved kidney function with last creatinine ~ 1.3. However, patient has moderateproteinuria, likely secondary to diabetic nephropathy. - Baseline Creatinine: ~ 1.4-1.7 - Proteinuria: Moderate (1-3 grams) - Date DSA Last Checked: Latest DSA: Not checked recently due to time from transplant - BK Viremia: Not checked recently due to time from transplant - Kidney Tx Biopsy: No # Immunosuppression: Tacrolimus immediate release (goal 4-6) and Mycophenolate mofetil (dose 750 mg every 12 hours) - Continue with intensive monitoring of immunosuppression for efficacy and toxicity. - Changes: No # Infection Prophylaxis: Last CD4 Level: Not checked - PJP: None # Hypertension: Borderline control; Goal BP: < 130/80 - Changes: Yes - Will increase amlodipine to 10 mg nightly. # Diabetes: Borderline control (HbA1c 7-9%) Last HbA1c: 7.4% per patient, but previously poorly controlled at over 10% - Management as per Endocrinology and primary care. # Mineral Bone Disorder: - Vitamin D; level: Not checked recently On supplement: Yes - Calcium; level: Normal On supplement: Yes # Thrombocytopenia: Stable, mild to moderately low platelet level in the ~ 90- 110s range. No signs or symptoms of bleeding. # Obesity, Class III (BMI = 40.7): Stable weight. - Recommend weight loss for overall health by increasing exercise and watching caloric intake. # Peripheral Neuropathy: Stable symptoms on gabapentin. # Diabetic Right Foot Ulcer: Slowly improving with decreased size. Patient is now in a walking boot. # Skin Cancer: New lesions: none - Discussed sun protection and recommend regular follow up with Dermatology. # Medical Compliance: Yes # COVID-19 Virus Review: Discussed COVID-19 virus and the potential medical risks. Reviewed preventative health recommendations, which includes washing hands for 20 seconds, avoid touching your face, and social distancing. Asked patient to inform the transplant center if they are exposed or diagnosed with this virus. # COVID Vaccine Completed: Yes # Transplant History: Etiology of Kidney Failure: Diabetic nephropathy Tx: DDKT Transplant: 02/02/2014 (Kidney) Significant changes in immunosuppression: None Significant transplant-related complications: None Transplant Office Assessment and plan was discussed with the patient and he voiced his understanding and agreement. Return visit: Return in about 1 year (around 03/05/2022). Joseph Quintana MD Chief Complaint Mr. Guthrie is a 70 year old here for kidney transplant and immunosuppression management. History of Present Illness Mr. Guthrie reports feeling good overall with some medical complaints. He was admitted in September and October with a diabetic right foot infection and ended up being discharged to a shelter. He is doing better and now back at home. His diabetic wound is slowly healing, presently about the size of a quarter per patient with no signs of active infection. 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 His energy level is okay, but not normal. He is active, although really gets minimal exercise, limited more recently by his foot infection. Denies any chest pain or shortness of breath with exertion. No leg swelling. Appetite is good and his weight remains at about 300 lbs. No nausea, vomiting or diarrhea. No fever,sweats or chills. Home BP: 130-140/60-70s Problem List Patient Active Problem List Diagnosis ??? Hyperlipidemia ??? Gout ??? Peripheral neuropathy ??? Diabetic retinopathy (H) ??? HTN, kidney transplant related ??? DM (diabetes mellitus), type 2 (H) ??? History of tobacco use ??? Thrombocytopenia (H) ??? Malaise and fatigue ??? Depression ??? Atrial fibrillation (H) ??? Immunosuppression (H) ??? Aftercare following organ transplant ??? Kidney replaced by transplant ??? Vitamin D deficiency ??? Skin cancer Allergies Allergies Allergen Reactions ??? Lisinopril Medications Current Outpatient Medications Medication Sig ??? amLODIPine (NORVASC) 10 MG tablet Take 1 tablet (10 mg) by mouth At Bedtime ??? aspirin 81 MG tablet Take 1 tablet (81 mg) by mouth daily ??? Calcium Carbonate-Vitamin D (CALCIUM + D PO) Take 1 tablet by mouth daily (dose unknown) ??? carvedilol 6.25 MG PO tablet Take 1 tablet (6.25 mg) by mouth 2 times daily (with meals) ??? citalopram (CELEXA) 20 MG tablet Take 1 tablet (20 mg) by mouth daily ??? gabapentin 300 MG PO capsule Take 300 mg by mouth 3 times daily ??? HumaLOG VIAL 100 UNITS/ML SOLN Inject 20-40 Units Subcutaneous 3 times daily (before meals) Patient reported his dose 10-12 unit 2-3 times daily before meals ??? LANTUS VIAL 100 UNITS/ML SC SOLN Inject 50 Units Subcutaneous every evening ??? losartan 100 MG PO tablet Take 1 tablet (100 mg) by mouth daily ??? mycophenolate (GENERIC EQUIVALENT) 250 MG capsule Take 3 capsules (750 mg) by mouth 2 times daily (generic okay) ??? PROGRAF (BRAND) 0.5 MG capsule Take 1 capsule (0.5 mg) by mouth every evening TOTAL dose 1 mg AMand 0.5 mg PM ??? PROGRAF (BRAND) 1 MG capsule Take 1 capsule by mouth every morning. TOTAL dose 1 mg AM and 0.5 mg PM ??? rosuvastatin (CRESTOR) 10 MG tablet Take 1 tablet (10 mg) by mouth daily No current facility-administered medications for this visit. Medications Discontinued During This Encounter Medication Reason ??? amLODIPine 5 MG PO tablet Physical Exam Vital signs and physical exam were deferred for this telemedicine visit. Data Renal Latest Ref Rng & Units 01/27/2021 01/07/2021 08/08/2020 Na 133 - 144 mmol/L - - - Na (external) 135 - 149 mmol/L 141 143 142 K 3.4 - 5.3 mmol/L - - - K (external) 3.6 - 5.1 mmol/L 4.5 4.0 4.2 Cl 94 - 109 mmol/L - - - Cl (external) 96 - 114 mmol/L 107 106 111 CO2 20 - 32 mmol/L - - - CO2 (external) 20 - 32 mmol/L 27 24 27 BUN 7 - 30 mg/dL - - - BUN (external) 7 - 30 mg/dL 20 23 25 Cr 0.66 - 1.25 mg/dL - - - Cr (external) 0.5 - 1.5 mg/dL 1.3 1.3 1.5 Glucose 70 - 99 mg/dL - - - Glucose (external) 60 - 115 mg/dL 156(H) 172(H) 119(H) Ca 8.5 - 10.1 mg/dL - - - Ca (external) 8.4 - 10.6 mg/dL 9.5 9.7 9.8 Mg 1.6 - 2.3 mg/dL - - - Bone Health Latest Ref Rng & Units 02/25/2014 02/18/2014 02/14/2014 Phos 2.5 - 4.5 mg/dL 1.3(L) 1.9(L) 2.4(L) PTHi 12 - 72 pg/mL - - - Heme Latest Ref Rng & Units 01/27/2021 07/08/2020 05/26/2020 WBC 4.0 - 11.0 10e9/L - - - WBC (external) 5.00 - 10.00 K/UL 5.08 4.32(L) 4.49(L) Hgb 13.3 - 17.7 g/dL - - - Hgb (external) 13.5 - 17.5 GM/DL 14.2 15.5 15.1 Plt 150 - 450 10e9/L - - - Plt (external) 150 - 450 K/UL 115(L) 101(L) 118(L) ABSOLUTE NEUTROPHIL 1.6 - 8.3 10e9/L - - - ABSOLUTE NEUTROPHILS (EXTERNAL) 1.70 - 7.00 K/UL 3.53 2.96 2.61 ABSOLUTE LYMPHOCYTES 0.8 - 5.3 10e9/L - - - ABSOLUTE LYMPHOCYTES (EXTERNAL) 0.90 - 2.90 K/UL 0.92 0.73(L) 1.03 ABSOLUTE MONOCYTES 0.0 - 1.3 10e9/L - - - ABSOLUTE MONOCYTES (EXTERNAL) 0.30 - 0.90 K/UL 0.41 0.37 0.44 ABSOLUTE EOSINOPHILS 0.0 - 0.7 10e9/L - - - ABSOLUTE EOSINOPHILS (EXTERNAL) 0.00 - 0.50 K/UL 0.21 0.25 0.38 ABSOLUTE BASOPHILS 0.0 - 0.2 10e9/L - - - ABSOLUTE BASOPHILS (EXTERNAL) 0.00 - 0.20 K/UL 0.01 0.01 0.02 ABS IMMATURE GRANULOCYTES 0 - 0.4 10e9/L - - - Liver Latest Ref Rng & Units 01/07/2021 08/08/2020 01/19/2017 AP 40 - 150 U/L - - - AP (external) 50 - 136 U/L - - - TBili 0.2 - 1.3 mg/dL - - - TBili (external) 0.2 - 1.2 mg/dL - - - DBili (external) 0.1 - 0.5 mg/dL - - - ALT 0 - 70 U/L - - - ALT (external) 4 - 50 U/L 10 8 11 AST 0 - 45 U/L - - - AST (external) 2 - 40 U/L - - - Tot Protein 6.8 - 8.8 g/dL - - - Tot Protein (external) 6.0 - 8.0 g/dL - - - Albumin 3.3 - 4.9 g/dL - - - Albumin (external) 3.2 - 4.6 g/dL - - - Pancreas Latest Ref Rng & Units 01/27/2021 08/08/2020 07/08/2020 A1C 4.3 - 6.0 % - - - A1C (external) <=6.9 % 7.4(H) 10.2(H) 12.3(H) Iron studies Latest Ref Rng & Units 02/05/2014 Iron 35 - 180 ug/dL 119 Iron sat 15 - 46 % 58(H) Ferritin 20 - 300 ng/mL 932(H) UMP Txp Virology Latest Ref Rng & Units 07/29/2014 02/02/2014 02/08/2012 BK Quant Rapid Ext None detected None detected - - EBV VCA IGG ANTIBODY U/mL - - 188.00 EBV CAPSID ANTIBODY IGG 0.0 - 0.8 AI - >8.0 Positive, suggests recent or past exposure (H) - Hep B Core NEG - - Negative Hep B Core Ext Non-Reactive Non-Reactive - - Hep B Surf - - - 135.0 HIV 1&2 NEG - - Negative Recent Labs Lab Test 11/03/17 1130 05/15/18 1413 05/16/19 1543 DOSTAC Not Provided Not Provided 05/16 1230AM TACROL 10.7 3.4* 4.6* Recent Labs Lab Test 02/25/14 1053 DOSMPA 02/24/141999 CORRECTED ON 02/25 AT 1055: PREVIOUSLY REPORTED 1999 MPACID 1.39 MPAG 80.2 documented in this encounter Plan of Treatment Not on filedocumented as of this encounter Visit Diagnoses Diagnosis HTN, kidney transplant related - Primary 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
--- OUTSIDE RECORDS SUMMARY | 2022-03-30 18:43 | XMS_ITS | Encounter Summary ---
:1950 Author Organization [place] Address [facility] [place] [address] Care Team Providers Name Role Phone Momo Forbes Primary Care Provider Joseph Quintana MD Unavailable Encounter Details Date Type Department Care Team Description 07/08/2020 External Order [facility] Outside, Provider Results Transplant Clinic [address] [place] [id number] Social History Tobacco Use Types Packs/Day [...] Comments Diagnosis CBC WITH PLATELETS & Routine 07/08/2020 9:23 AM R esults for this DIFFERENTIAL [employer] procedure are i n the results section. TACROLIMUS BY TANDEM Routine 07/08/2020 9:23 AM R esults for this MASS SPECTROMETRY [employer] procedure are in the results section. PROTEIN RANDOM URINE Routine 07/08/2020 9:23 AM R esults for this [employer] procedure are i n the results section. HEMOGLOBIN A1C Routine 07/08/2020 9:23 AM Results for this [employer] procedure are i n the results section. HEMOGLOBIN A1C Routine 07/08/2020 9:23 AM Results for this [employer] procedure are i n the results section. BASIC METABOLIC PANEL Routine 07/08/2020 9:23 AM Results for this [employer] procedure are i n the results section. documented in this encounter Results (ABNORMAL) Protein random urine with Creat Ratio (07/08/2020 9:23 AM [employer]) Analysis Performed At Patho logist Time Signature Protein Random 73 mg/dL LABDE SCAN Urine (External) Creatinine 65 mg/dL LABDE SCAN Urine mg/dL (External) Protein Total 1.12 (H) 0 - 0.19 LABDE SCAN Ur per Cr (External) Specimen (Source) Anatomical Collection Method Collection Time Re ceived Time Location / / Volume Laterality Urine specimen 07/08/2020 9:23 AM (specimen) [employer] Narrative [facility] - 07/11/2020 11:13 AM [employer] Verified by Praful Huff on 2019. Patient Reported LAB - URINE ORDERABLES Performing Organization Address City/State/ZIP Code Phon e Number [facility] LABDE SCAN (ABNORMAL) Hemoglobin A1c (07/08/2020 9:23 AM [employer]) Analysis Performed At Patho logist Time Signature Hemoglobin A1C 12.3 (H) 0 - 5.6 % LABDE SCAN (External) Specimen (Source) Anatomical Collection Method Collection Time Re ceived Time Location / / Volume Laterality Blood specimen 07/08/2020 9:23 AM (specimen) [employer] Narrative [facility] - 07/11/2020 11:13 AM [employer] Verified by Praful Huff on 2019. Patient Reported LAB - BLOOD ORDERABLES Performing Organization Address City/State/ZIP Code Phon e Number [facility] LABDE SCAN Tacrolimus level (07/08/2020 9:23 AM [employer]) P athologist Signature Tacrolimus(FK- 2.2 See scanned LABDE SCAN 506) report ng/mL (External) Specimen (Source) Anatomical Collection Method Collection Time Re ceived Time Location / / Volume Laterality Blood specimen 07/08/2020 9:23 AM (specimen) [employer] Narrative [facility] - 07/11/2020 11:13 AM [employer] Verified by Praful Huff on 2019. Patient Reported LAB - BLOOD ORDERABLES Performing Organization Address City/State/ZIP Code Phon e Number [facility] LABDE SCAN (ABNORMAL) Hemoglobin A1c (07/08/2020 9:23 AM [employer]) Analysis Performed At [facility] logist Time Signature Hemoglobin A1C 12.3 (H) 0 - 5.6 % LABDE SCAN (External) Specimen (Source) Anatomical Collection Method Collection Time Re ceived Time Location / / Volume Laterality Blood specimen 07/08/2020 9:23 AM (specimen) [employer] Narrative [facility] - 07/09/2020 11:03 AM [employer] Verified by Andrade Barajas on 07/09/2020. Patient Reported LAB - BLOOD ORDERABLES Performing Organization Address [facility] Phon e Number [facility] LABDE SCAN (ABNORMAL) Basic metabolic panel (07/08/2020 9:23 AM [employer]) Analysis Performed At [facility] logist Time Signature Calcium 10.1 8.4 - 10.6 LABDE SCAN (External) mg/dL Urea Nitrogen 37 (H) 7 - 30 LABDE SCAN (External) mg/dL Creatinine 1.7 (H) 0.5 - 1.5 LABDE SCAN (External) mg/dL Glucose 407 (HH) 60 - 115 LABDE SCAN (External) mg/dL Sodium 138 135 - 149 LABDE SCAN (External) mmol/L Potassium 5.2 (H) 3.6 - 5.1 LABDE SCAN (External) mmol/L Chloride 103 96 - 114 LABDE SCAN (External) mmol/L (External) CO2 (External) 28 20 - 32 LABDE SCAN mmol/L Specimen (Source) Anatomical Collection Method Collection Time Re ceived Time Location / / Volume Laterality Blood specimen 07/08/2020 9:23 AM (specimen) [employer] Narrative [facility] - 07/09/2020 11:02 AM [employer] Verified by Andrade Barajas on 07/09/2020. Patient Reported LAB - BLOOD ORDERABLES Performing Organization Address City/[facility]/ZIP Code Phon e Number [facility] LABDE SCAN (ABNORMAL) CBC with platelets differential (07/08/2020 9:23 AM [employer]) [facility] gist Method Time Signature WBC Count 4.32 (L) 5.00 - LABDE SCAN (External) 10.00 K/uL RBC Count 5.46 4.32 - LABDE SCAN (External) 5.72 M/uL Hemoglobin 15.5 13.5 - LABDE SCAN (External) 17.5 GM/DL Hematocrit 47.9 38.8 - LABDE SCAN (External) 50.0 % MCV (External) 88 81 - 95 LABDE SCAN FL MCH (External) 28 27 - 34 LABDE SCAN PG MCHC (External) 32 32 - 36 LABDE SCAN GM/DL Platelet Count 101 (L) 150 - 450 LABDE SCAN (External) K/uL % Neutrophils 68.5 50.0 - LABDE SCAN (External) 70.0 % % Lymphocytes 16.9 (L) 25.0 - LABDE SCAN (External) 45.0 % % Monocytes 8.6 0.00 - LABDE SCAN (External) 11.0 % % Eosinophils 5.8 0.0 - 7.0 LABDE SCAN (External) % % Basophils 0.2 0.0 - 3.0 LABDE SCAN (External) % % Immature 0.0 % LABDE SCAN Granulocytes (External) RDW (External) 14.3 11.5 - LABDE SCAN 15.3 % Absolute 2.96 1.70 - LABDE SCAN Neutrophils 7.00 K/uL (External) Absolute 0.73 (L) 0.90 - LABDE SCAN Lymphocytes 2.90 K/uL (External) Absolute 0.37 0.30 - LABDE SCAN Monocytes 0.90 K/uL (External) Absolute 0.25 0.00 - LABDE SCAN Eosinophils 0.50 K/uL (External) Absolute 0.01 0.00 - LABDE SCAN Basophils 0.20 K/uL (External) Absolute Immature 0.00 K/uL LABDE SCAN Granulocytes (External) Specimen (Source) Anatomical Collection Method Collection Time Re ceived Time Location / / Volume Laterality Blood specimen 07/08/2020 9:23 AM (specimen) [employer] Narrative [facility] - 07/09/2020 10:52 AM [employer] Verified by Praful Huff on 2019. Patient Reported LAB - BLOOD ORDERABLES Performing Organization Address City/State/ZIP Code Phon e Number [facility] LABDE SCAN documented in this encounter Visit Diagnoses Not on filedocumented in this encounter Care Teams Medical Billing Coordinator Relationship Specialty Start Date End Date Momo Forbes PCP - General Family Practice 01/02/14 [facility] [address] [place] [address] Joseph Quintana, Assigned Nephrology 03/29/21 MD Provider [address] [place] [address] [address] [place], [place] [id number] documented as of this encounter
--- OUTSIDE RECORDS SUMMARY | 2022-03-30 18:43 | XMS_ITS | Encounter Summary ---
:1950 Author Organization [place] Address [facility] [place] [address] Care Team Providers Name Role Phone Momo Forbes Primary Care Provider Joseph Quintana MD Unavailable Encounter Details Date Type Department Care Team Description 01/27/2021 External Order [facility] Outside, Provider Results Transplant Clinic [address] [place] [address] Social History Tobacco Use Types [...] Comments Diagnosis CBC WITH PLATELETS & Routine 01/27/2021 11:45 Res ults for this DIFFERENTIAL AM CDT procedure are i n the results section. TACROLIMUS BY TANDEM Routine 01/27/2021 11:45 Res ults for this MASS SPECTROMETRY AM CDT procedure are in the results section. HEMOGLOBIN A1C Routine 01/27/2021 11:45 Results f or this AM CDT procedure are i n the results section. BASIC METABOLIC PANEL Routine 01/27/2021 11:45 Re sults for this AM CDT procedure are i n the results section. documented in this encounter Results (ABNORMAL) Hemoglobin A1c (01/27/2021 11:45 AM CDT) athologist Signature Hemoglobin A1C 7.4 (H) <=6.9 % LABDE SCAN (External) Specimen (Source) Anatomical Collection Method Collection Time Re ceived Time Location / / Volume Laterality Blood 01/27/2021 11:45 AM CDT Narrative [facility] - 03/06/2021 2:31 PM CDT Verified by Cassie Florian on 03/06/2021. Patient Reported LAB - BLOOD ORDERABLES Performing Organization Address City/State/ZIP Code Phon e Number [facility] LABDE SCAN Tacrolimus level (01/27/2021 11:45 AM CDT) athologist Signature Tacrolimus(FK-5 7.3 5.0 - 15.0 LABDE SCAN 06) (External) ng/mL Specimen (Source) Anatomical Collection Method Collection Time Re ceived Time Location / / Volume Laterality Blood 01/27/2021 11:45 AM CDT Narrative [facility] - 01/30/2021 7:07 AM CDT Verified by Ruperto Pepper on 01/31/20 21. Patient Reported LAB - BLOOD ORDERABLES Performing Organization Address City/State/ZIP Code Phon e Number [facility] LABDE SCAN (ABNORMAL) Basic metabolic panel (01/27/2021 11:45 AM CDT) [facility] gist Method Time Signature Glucose 156 (H) 60 - 115 LABDE SCAN (External) mg/dL Urea Nitrogen 20 7 - 30 LABDE SCAN (External) mg/dL Creatinine 1.3 0.5 - 1.5 LABDE SCAN (External) mg/dL GFR Estimated Patient ml/min/1. LABDE SCAN (External) height/weight 73m2 data not available Sodium 141 135 - 149 LABDE SCAN (External) mmol/L Potassium 4.5 3.6 - 5.1 LABDE SCAN (External) mmol/L Chloride 107 96 - 114 LABDE SCAN (External) mmol/L (External) CO2 (External) 27 20 - 32 LABDE SCAN mmol/L Calcium 9.5 8.4 - LABDE SCAN (External) 10.6 mg/dL Specimen (Source) Anatomical Collection Method Collection Time Re ceived Time Location / / Volume Laterality Blood 01/27/2021 11:45 AM CDT Narrative [facility] - 01/28/2021 10:21 AM CDT Verified by Ruperto Pepper on 01/29/20 21. Patient Reported LAB - BLOOD ORDERABLES Performing Organization Address City/State/ZIP Code Phon e Number [facility] LABDE SCAN (ABNORMAL) CBC with platelets differential (01/27/2021 11:45 AM CDT) [facility] gist Method Time Signature WBC Count 5.08 5.00 - LABDE SCAN (External) 10.00 K/UL RBC Count 5.12 4.32-5.72 LABDE SCAN (External) . M/UL Hemoglobin 14.2 13.5 - LABDE SCAN (External) 17.5 GM/DL Hematocrit 43.9 38.8 - LABDE SCAN (External) 50.0 % MCV (External) 86 81 - 95 LABDE SCAN FL MCH (External) 28 27 - 34 LABDE SCAN PG MCHC (External) 32 32 - 36 LABDE SCAN GM/DL Platelet Count 115 (L) 150 - 450 LABDE SCAN (External) K/UL % Neutrophils 69.5 50.0 - LABDE SCAN (External) 70.0 % % Lymphocytes 18.1 (L) 25.0 - LABDE SCAN (External) 45.0 % % Monocytes 8.1 0.00 - LABDE SCAN (External) 11.0 % % Eosinophils 4.1 0.0 - 7.0 LABDE SCAN (External) % % Basophils 0.2 0.0 - 3.0 LABDE SCAN (External) % % Immature 0.0 % LABDE SCAN Granulocytes (External) RDW (External) 15.3 11.5 - LABDE SCAN 15.3 % Absolute 3.53 1.70 - LABDE SCAN Neutrophils 7.00 K/UL (External) Absolute 0.92 0.90 - LABDE SCAN Lymphocytes 2.90 K/UL (External) Absolute 0.41 0.30 - LABDE SCAN Monocytes 0.90 K/UL (External) Absolute 0.21 0.00 - LABDE SCAN Eosinophils 0.50 K/UL (External) Absolute 0.01 0.00 - LABDE SCAN Basophils 0.20 K/UL (External) Absolute Immature 0.00 K/uL LABDE SCAN Granulocytes (External) Specimen (Source) Anatomical Collection Method Collection Time Re ceived Time Location / / Volume Laterality Blood 01/27/2021 11:45 AM CDT Narrative [facility] - 01/28/2021 10:15 AM CDT Verified by Praful Huff on 2020. Patient Reported LAB - BLOOD ORDERABLES Performing Organization Address City/State/ZIP Code Phon e Number [facility] LABDE SCAN documented in this encounter Visit Diagnoses Not on filedocumented in this encounter Care Teams Admin Assistant Relationship Specialty Start Date End Date Momo Forbes PCP - General Family Practice 01/02/14 [facility] [address] [place] [address] Joseph Quintana, Assigned Nephrology 03/29/[address] [place] [address] [address] [place] [address] documented as of this encounter
--- OUTSIDE RECORDS SUMMARY | 2022-03-30 18:43 | XMS_ITS | Encounter Summary ---
:1950 Author Organization [place] Address [facility] [place] [address] Care Team Providers Name Role Phone Momo Forbes Primary Care Provider Joseph Quintana MD Unavailable Reason for Visit Reason Onset Date Comments Medication Refill Refill Request 08/20/2021 Encounter Details Date Type Department Care Team Description 08/20/2021 Refill [facility] Joseph Quintana on Refill; Nephrology Clinic MD Herminio Refill Request [address] [facility] [address] [facility] [address] [place], [place] [phone] Social History Tobacco Use Types Packs/Day Years [...] transplant documented in this encounter Care Teams Infantry Weapons Officer Relationship Specialty Start Date End Date Momo Forbes PCP - General Family Practice 01/02/14 [facility] [address] [place] [address] Joseph Quintana, Assigned Nephrology 03/29/21 MD Provider [address] [place] [address] [address] [place] [address] documented as of this encounter
--- OUTSIDE RECORDS SUMMARY | 2022-03-30 18:43 | XMS_ITS | Encounter Summary ---
:1950 Author Organization [place] Address [facility] [place] [address] Care Team Providers Name Role Phone ForbesMomo Primary Care Provider Reason for Visit Reason Onset Date Comments Transplant 10/23/2020 Encounter Details Date Type Department Care Team Description 10/23/2020 Telephone [facility] BOGDAN Nam [address] [place] [address] [phone] Social History Tobacco Use Types Packs/Day [...] Encounter - Barbie Ugalde RN - 10/23/2020 1:10 PM MATERIALS MANAGEMENT CLERK Latrell reports his labs were done yesterday morning at [facility]. Last night ended upat ER at [facility]. Hospital printed out copy of labs and he is worried about creatinine. Latrell states he had R foot infection that needed to be cleaned out; Had surgery last day of August onfoot at [facility]. Was hospitalized 10 days before going to senior living for recovery. Last night his blood sugar was dropping low into 70s and senior living staff thought his BP was jumping around to much. This morning is BP 130/76, but last night 170s. Explained to Latrell that it has been a year since lastnephrology appointment and he needs to be seen for transplant follow up. He agreed but did not want to schedule at this time but will call back to schedule. Call placed to [facility] lab to fax results. Per Lab need to speak with information management department to release records or go thru [facility] to have orders faxed. Call then returned to Latrell. Fax number for [facility] office provided. Reviewed results in CareEverywhere. Creatinine in AM was 1.34, BG 69. Later in day at hospital Creatinine 1.65, BG 190. Left VM message that with uncontrolled blood sugars, setting of infection, antibiotics can all cause creatinine to elevate. Recommended keeping up with hydration and repeating post-transplant labs in 1-2 weeks. RIALS MANAGEMENT CLERK Telephone Encounter - Tasia Mack - 10/23/2020 10:03 AM CST Patient Call: Transplant Lab/Orders Route to PATHOLOGY MANAGER Post Transplant Days: 2455 When patient is less than 60 days post-transplant, route high priority Reason for Call: Discuss lab results; which results? creatine level Callback needed? Yes Return Call Needed Same as documented in contacts section When to return call?: Greater than one day: Route standard priority RIALS MANAGEMENT CLERK documented in this encounter Plan of Treatment Not on filedocumented as of this encounter Visit Diagnoses Not on filedocumented in this encounter Care Teams Fitting Room Checker Relationship Specialty Start Date End Date Momo Forbes PCP - General Family Practice 01/02/14 [facility] [address] [place] [address] documented as of this encounter
--- OUTSIDE RECORDS SUMMARY | 2022-03-30 18:43 | XMS_ITS | Encounter Summary ---
:1950 Author Organization [place] Address [facility] [place] [address] Care Team Providers Name Role Phone Momo Forbes Primary Care Provider Reason for Visit Reason Onset Date Comments Transplant 01/07/2021 Encounter Details Date Type Department Care Team Description 01/07/2021 Telephone [facility] Barbie Ugadlelanlynda Transplant Clinic BOGDAN Nam [address] [place] [address] [phone] Social History Tobacco Use Types Packs/Day [...] this encounter Miscellaneous Notes Telephone Encounter - Alana Calderon LPN - 01/07/2021 4:17 PM CDT Order sent Telephone Encounter - Xiomara Bello - 01/07/2021 11:04 AM CDT Patient Call: Transplant Lab/Orders Route to METROLOGY TECHNICIAN Post Transplant Days: 2530 When patient is less than 60 days post-transplant, route high priority Reason for Call: Annual lab reorder fax labs to [facility] lab at [phone] Labs drawn Waiting fororders Callback needed? No documented in this encounter Plan of Treatment Not on filedocumented as of this encounter Visit Diagnoses Not on filedocumented in this encounter Care Teams Bar Useful Or Busser Relationship Specialty Start Date End Date Momo Forbes PCP - General Family Practice 01/02/14 [facility] [address] [place] [address] documented as of this encounter
--- OUTSIDE RECORDS SUMMARY | 2022-03-30 18:43 | XMS_ITS | Encounter Summary ---
:1950 Author Organization [place] Address [address] [place] [address]. [place] [address] Care Team Providers Name Role Phone Momo Forbes Primary Care Provider Reason for Visit Reason Onset Date Comments Refill Request 02/04/2020 prograf, mycophenola te Encounter Details Date Type Department Care Team Description 02/04/2020 Refill [facility] Joseph Refill R equest Transplant Clinic MD Herminio (prograf, [address] [facility] [address] [facility] mycophenolate) [facility] [address] [facility] [address] [phone] [place] [address] (Wo rk) Social History Tobacco Use Types Packs/Day Years [...] transplanted - Primary Kidney replaced by transplant documented in this encounter Care Teams Sound Assistant Relationship Specialty Start Date End Date Momo Forbes PCP - General Family Practice 01/02/14 [facility] [address] [place] [address] documented as of this encounter
--- OUTSIDE RECORDS SUMMARY | 2022-03-30 18:43 | XMS_ITS | Encounter Summary ---
:1950 Author Organization [place] Address [facility] [place] [address] Care Team Providers Name Role Phone Momo Forbes Primary Care Provider Joseph Quintana MD Unavailable Encounter Details Date Type Department Care Team Description 01/07/2021 External Order [facility] Outside, Provider Results Transplant Clinic [address] [place] [phone] Social History Tobacco Use Types Packs/Day [...] Name Priority Date/Time Associated Diagnosis Comme nts ALT Routine 01/07/2021 9:30 AM Results f or this CDT procedure are i n the results section. BASIC METABOLIC Routine 01/07/2021 9:30 AM Result s for this PANEL CDT procedure are i n the results section. documented in this encounter Results ALT (01/07/2021 9:30 AM CDT) P athologist Signature ALT (External) 10 4 - 50 U/L LABDE SCAN Specimen (Source) Anatomical Collection Method Collection Time Re ceived Time Location / / Volume Laterality Blood 01/07/2021 9:30 AM CDT Narrative [facility] - 01/12/2021 10:34 AM CDT Verified by Cassie Florian on 01/12/2021. Patient Reported LAB - BLOOD ORDERABLES Performing Organization Address City/State/ZIP Code Phon e Number [facility] LABDE SCAN (ABNORMAL) Basic metabolic panel (01/07/2021 9:30 AM CDT) P athologist Signature Glucose 172 (H) 60 - 115 LABDE SCAN (External) mg/dL Urea Nitrogen 23 7 - 30 LABDE SCAN (External) mg/dl Creatinine 1.3 0.5 - 1.5 LABDE SCAN (External) mg/dL Sodium 143 135 - 149 LABDE SCAN (External) mmol/L Potassium 4.0 3.6 - 5.1 LABDE SCAN (External) mmol/L Chloride 106 96 - 114 LABDE SCAN (External) mmol/L (External) CO2 (External) 24 20 - 32 LABDE SCAN mmol/L Calcium 9.7 8.4 - 10.6 LABDE SCAN (External) mg/dL Specimen (Source) Anatomical Collection Method Collection Time Re ceived Time Location / / Volume Laterality Blood 01/07/2021 9:30 AM CDT Narrative [facility] - 01/12/2021 10:34 AM CDT Verified by Cassie Florian on 01/12/2021. Patient Reported LAB - BLOOD ORDERABLES Performing Organization Address City/State/ZIP Code Phon e Number [facility] LABDE SCAN documented in this encounter Visit Diagnoses Not on filedocumented in this encounter Care Teams Aquarist Relationship Specialty Start Date End Date Momo Forbes PCP - General Family Practice 01/02/14 [facility] [address] [place] [address] Joseph Quintana, Assigned Nephrology 03/29/21 MD Provider [address] [place] [address] [address] [place] [address] documented as of this encounter
--- OUTSIDE RECORDS SUMMARY | 2022-03-30 18:43 | XMS_ITS | Encounter Summary ---
:1950 Author Organization [place] Address [facility] [place] [address] Care Team Providers Name Role Phone Momo Forbes Primary Care Provider Joseph Quintana MD Unavailable Encounter Details Date Type Department Care Team Description 05/26/2020 External Order [facility] Outside, Provider Results Transplant Clinic [address] [place] [phone] Social History Tobacco Use Types Packs/Day [...] Comments Diagnosis CBC WITH PLATELETS & Routine 05/26/2020 10:25 Res ults for this DIFFERENTIAL AM CDT procedure are i n the results section. PROTEIN RANDOM URINE Routine 05/26/2020 10:25 Res ults for this AM CDT procedure are i n the results section. documented in this encounter Results (ABNORMAL) Protein random urine with Creat Ratio (05/26/2020 10:25 AM CDT) Analysis Performed At Patho logist Time Signature Protein Random 114 mg/dL LABDE SCAN Urine (External) Creatinine 70 mg/dL LABDE SCAN Urine mg/dL (External) Protein Total 1.62 (H) 0 - 0.19 LABDE SCAN Ur per Cr (External) Specimen (Source) Anatomical Collection Method Collection Time Re ceived Time Location / / Volume Laterality Urine specimen 05/26/2020 10:25 (specimen) AM CDT Narrative JESSICA PFT - 05/27/2020 12:06 PM CDT Verified by Ruperto Pepper on 05/27/20 20. Patient Reported LAB - URINE ORDERABLES Performing Organization Address City/State/ZIP Code Phon e Number [facility] LABDE SCAN (ABNORMAL) CBC with platelets differential (05/26/2020 10:25 AM CDT) [facility] Method Time Signature WBC Count 4.49 (L) 5.00 - LABDE SCAN (External) 10.00 K/UL RBC Count 5.31 4.32 - LABDE SCAN (External) 5.72 M/UL Hemoglobin 15.1 13.5 - LABDE SCAN (External) 17.5 GM/DL Hematocrit 46.5 38.8 - LABDE SCAN (External) 50.0 % MCV (External) 88 81 - 95 LABDE SCAN FL MCH (External) 28 27 - 34 LABDE SCAN PG MCHC (External) 33 32 - 36 LABDE SCAN GM/DL Platelet Count 118 (L) 150 - 450 LABDE SCAN (External) K/UL % Neutrophils 58.2 50.0 - LABDE SCAN (External) 70.0 % % Lymphocytes 22.9 (L) 25.0 - LABDE SCAN (External) 45.0 % % Monocytes 9.8 0.00 - LABDE SCAN (External) 11.0 % % Eosinophils 8.5 (H) 0.0 - 7.0 LABDE SCAN (External) % % Basophils 0.4 0.0 - 3.0 LABDE SCAN (External) % % Immature 0.2 % LABDE SCAN Granulocytes (External) RDW (External) 14.6 11.5 - LABDE SCAN 15.3 % Absolute 2.61 1.70 - LABDE SCAN Neutrophils 7.00 K/UL (External) Absolute 1.03 0.90 - LABDE SCAN Lymphocytes 2.90 K/UL (External) Absolute 0.44 0.30 - LABDE SCAN Monocytes 0.90 K/UL (External) Absolute 0.38 0.00 - LABDE SCAN Eosinophils 0.50 K/UL (External) Absolute 0.02 0.00 - LABDE SCAN Basophils 0.20 K/UL (External) Absolute Immature 0.01 K/UL LABDE SCAN Granulocytes (External) Specimen (Source) Anatomical Collection Method Collection Time Re ceived Time Location / / Volume Laterality Blood specimen 05/26/2020 10:25 (specimen) AM CDT Narrative [facility] - 05/27/2020 12:06 PM CDT Verified by Andrade Barajas on 05/27/2020. Patient Reported LAB - BLOOD ORDERABLES Performing Organization Address City/State/ZIP Code Phon e Number [facility] LABDE SCAN documented in this encounter Visit Diagnoses Not on filedocumented in this encounter Care Teams Mainframe Programmer Relationship Specialty Start Date End Date Momo Forbes PCP - General Family Practice 01/02/14 [facility] [address] [place] [address] Joseph Quintana, Assigned Nephrology 03/29/21 MD Provider [address] [facility] 353 [facility] [address] [place], [place] [address] documented as of this encounter
--- OUTSIDE RECORDS SUMMARY | 2022-03-30 18:43 | XMS_ITS | Encounter Summary ---
:1950 Author Organization [place] Address [address] [place] [address]. [place] [address] Care Team Providers Name Role Phone Momo Forbes Primary Care Provider Joseph Quintana MD Unavailable Encounter Details Date Type Department Care Team Description 08/25/[address] [facility] Jose, Kidney tr ansplanted; Transplant Clinic BOGDAN Marcano -donor kidney transp lant recipient [address] [place] [phone] Social History Tobacco Use Types Packs/Day [...] transplant documented in this encounter Care Teams Credit Collections Analyst Relationship Specialty Start Date End Date Momo Forbes PCP - General Family Practice 01/02/14 [facility] [address] [place] [address] Joseph Quintana, Assigned Nephrology 03/29/21 Provider 7 [facility] 353 [facility] [address] [place], [place] [id number] documented as of this encounter
--- OUTSIDE RECORDS SUMMARY | 2022-03-30 18:43 | XMS_ITS | Encounter Summary ---
:1950 Author Organization [place] Address [facility] [place] [address] Care Team Providers Name Role Phone Momo Forbes Primary Care Provider Reason for Visit Reason Onset Date Comments Refill Request 03/18/2020 Mycophenolate and Pr ograf 1mg Encounter Details Date Type Department Care Team Description 03/18/2020 Refill [facility] Joseph Quintana Refill R equest Nephrology Clinic MD Herminio (Mycophenolate and [place] [address] [place] [address] SE Prograf 1mg) 9[address] [facility] 353 [facility] [address] [place], [place] [phone] Social History Tobacco Use Types Packs/Day Years [...] transplant documented in this encounter Care Teams Packaging Sales Consultant Relationship Specialty Start Date End Date Momo Forbes PCP - General Family Practice 01/02/14 [facility] [address] [place] [address] documented as of this encounter
--- OUTSIDE RECORDS SUMMARY | 2022-03-30 18:43 | XMS_ITS | Encounter Summary ---
:1950 Author Organization [place] Address [facility]0 [facility] [place] [address] Care Team Providers Name Role Phone Momo Forbes Primary Care Provider Joseph Quintana MD Unavailable Encounter Details Date Type Department Care Team Description 05/26/2020 External Order [facility] Outside, Provider Results Transplant Clinic [address] [place] [phone] Social History Tobacco Use Types Packs/Day [...] Associated Comments Diagnosis TACROLIMUS BY TANDEM Routine 05/26/2020 10:25 Res ults for this MASS SPECTROMETRY AM CDT procedure are in the results section. BASIC METABOLIC PANEL Routine 05/26/2020 10:25 Re sults for this AM CDT procedure are i n the results section. documented in this encounter Results (ABNORMAL) Basic metabolic panel (05/26/2020 10:25 AM CDT) P athologist Signature Glucose 303 (H) 60 - 115 LABDE SCAN (External) mg/dL Urea Nitrogen 27 7 - 30 LABDE SCAN (External) mg/dL Creatinine 1.4 0.5 - 1.5 LABDE SCAN (External) mg/dL Sodium 139 135 - 149 LABDE SCAN (External) mmol/L Potassium 4.6 3.6 - 5.1 LABDE SCAN (External) mmol/L Chloride 103 96 - 114 LABDE SCAN (External) mmol/L (External) CO2 (External) 30 20 - 32 LABDE SCAN mmol/L Calcium 9.9 8.4 - 10.6 LABDE SCAN (External) mg/dL Specimen (Source) Anatomical Collection Method Collection Time Re ceived Time Location / / Volume Laterality Blood specimen 05/26/2020 10:25 (specimen) AM CDT Narrative [facility] - 05/29/2020 4:03 PM CDT Verified by Gabby Nayak on 03/2020. Patient Reported LAB - BLOOD ORDERABLES Performing Organization Address City/State/ZIP Code Phon e Number [facility] LABDE SCAN Tacrolimus level (05/26/2020 10:25 AM CDT) P athologist Signature Tacrolimus(FK-5 2.5 See Image LABDE SCAN 06) (External) ng/mL Specimen (Source) Anatomical Collection Method Collection Time Re ceived Time Location / / Volume Laterality Blood specimen 05/26/2020 10:25 (specimen) AM CDT Narrative [facility] - 05/29/2020 1:33 PM CDT Verified by Ruperto Pepper on 05/29/20 20. Patient Reported LAB - BLOOD ORDERABLES Performing Organization Address City/State/ZIP Code Phon e Number [facility] LABDE SCAN documented in this encounter Visit Diagnoses Not on filedocumented in this encounter Care Teams Manager Discovery Relationship Specialty Start Date End Date Momo Forbes PCP - General Family Practice 01/02/14 [facility] [address] [place] [address] Joseph Quintana, Assigned Nephrology 03/29/21 MD Provider 7 [facility] 353 [facility] [address] [place] [address] documented as of this encounter
--- OUTSIDE RECORDS SUMMARY | 2022-03-30 18:44 | XMS_ITS | Encounter Summary ---
:1950 Author Organization [place] Address [address] [place] [address] Care Team Providers Name Role Phone Forbes, Ton Primary Care Provider Reason for Visit Reason Comments RECHECK Post kid tx f/u Encounter Details Date Type Department Care Team Description [facility] [address] [facility] [address] [place] [address] Kidney transplanted (Primary Dx); Nephrology Clinic , Kidney/Pancreas Recipient Need for influenza vaccination; [place] HTN, kidney transplant relat ed; [facility] Immunosupp ression (H); SE Skin cancer screening; [place], [place] [phone] Social History Tobacco Use Types Packs/Day [...] on file documented as of this encounter Last Filed Vital Signs Vital Sign Reading Time Taken Comments Blood Pressure 169/76 10/09/2019 2:35 PM [facility] Pulse 67 10/09/2019 2:35 PM [facility] Temperature - - Respiratory Rate - - Oxygen Saturation 95% 10/09/2019 2:35 PM [facility] Inhaled Oxygen Concentration - - Weight 132.5 kg (292 lb 1.6 oz) 10/09/2019 2:35 PM [facility] Height - - Body Mass Index 39.62 10/10/2017 2:25 PM [facility] documented in this encounter Progress Notes Shiva Presley MD - 10/09/2019 2:45 PM CST CHRONIC TRANSPLANT NEPHROLOGY VISIT Assessment & Plan # DDKT: Stable - Baseline Cr ~ 1.4-1.7 - Proteinuria: Mild (0.5-1.0 grams) - Date DSA Last Checked: Not Known Latest DSA: Not checked recently due to time from transplant - BK Viremia: Not checked recently due to time from transplant - Kidney Tx Biopsy: No # Immunosuppression: Tacrolimus immediate release (goal 4-6) and Mycophenolate mofetil (goal not followed) - Changes: No # Infection Prophylaxis: - PJP: None # Hypertension: Borderline control; Goal BP: < 140/90 - Changes: Yes - start carvedilol 6.25 mg BID. - Check blood pressure at home, nurse will follow up in ~10 days. # Diabetes: Poorly controlled (HbA1c >9%) Last HbA1c: 13.7%. - Management as per primary care. - Recommended all blood sugars stay below 200, with fasting between 90 and 130. # Mineral Bone Disorder: - Secondary renal hyperparathyroidism; PTH level: Not checked recently On treatment: None - Vitamin D; level: Not checked recently On Supplement: Yes - Calcium; level: Not checked recently On Supplement: Yes - Phosphorus; level: Not checked recently On Supplement: No # Electrolytes: - Potassium; level: Not checked recently On Supplement: No - Magnesium; level: Not checked recently On Supplement: No - Bicarbonate; level: Not checked recently On Supplement: No # Skin Cancer: New lesions: has not followed recently. - Discussed sun protection and recommend regular follow up with Dermatology. - Patient had melanoma on his nose last year. # Medical Compliance: No. Evidence of labs less than recommended. - Discussed importance of checking labs regularly as recommended, taking medications as prescribed and attending scheduled medical appointments. # Transplant History: Etiology of Kidney Failure: Diabetic nephropathy Tx: DDKT Transplant: 02/02/2014 (Kidney) Donor Type: Donation after Brain Donor Class: Expanded Criteria Donor Significant changes in immunosuppression: None Significant transplant-related complications: None Transplant Office Assessment and plan was discussed with the patient and he voiced his understanding and agreement. Return visit: 12 months, labs q 3 months. Chief Complaint Mr. Guthrie is a 69 year old here for routine follow up. 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 He was last seen in clinic by Dr. Quintana on 10/17/18; please see that note for further details. Since his last visit, the patient has not gotten labs frequently. He is aware that he has not gottenlabs often due to being upset with his home hospital. He has changed his provider and will receive anew lab letter that will enable him to get labs wherever he would like. He denies any other symptomsor concerns during this time. Today, the patient feels well. He will receive a flu shot today in clinic. He denies any recent hospitalizations or new medical issues. He denies any chest pain or shortness of breath today. No nausea or vomiting. No diarrhea or constipation. No fever, sweats, and chills. He denies any issues with lower extremity edema. He had no other questions or concerns today. Recent Hospitalizations: [x] No [] Yes New Medical Issues: [x] No [] Yes Decreased energy: [x] No [] Yes Chest pain or SOB with exertion: [x] No [] Yes Appetite change or weight change: [x] No [] Yes Nausea, vomiting or diarrhea: [x] No [] Yes Fever, sweats or chills: [x] No [] Yes Leg swelling: [x] No [] Yes BKA on left Home BP: Unclear; patient said 160-170 systolic, said 140-150 systolic at other clinics. Review of Systems A comprehensive review of systems was obtained and negative, except as noted in the HPI or PMH. Problem List Patient Active Problem List Diagnosis ??? Hyperlipidemia ??? Gout ??? Peripheral neuropathy ??? Diabetic retinopathy (H) ??? HTN, kidney transplant related ??? DM (diabetes mellitus), type 2 (H) ??? History of tobacco use ??? Thrombocytopenia (H) ??? Malaise and fatigue ??? Depression ??? Atrial fibrillation (H) ??? Immunosuppression (H) ??? Aftercare following organ transplant ??? Kidney replaced by transplant Social History Social History Tobacco Use ??? Smoking status: Former Smoker Years: 5.00 Types: Cigars Last attempt to quit: 08/22/2006 Years since quittin.1 ??? Smokeless tobacco: Never Used Substance Use Topics ??? Alcohol use: Yes Alcohol/week: 0.0 standard drinks Comment: occasional drink. ??? Drug use: No Allergies Allergies Allergen Reactions ??? Lisinopril Medications Current Outpatient Medications Medication Sig ??? amLODIPine (NORVASC) 10 MG tablet Take 1 tablet (10 mg) by mouth daily (Patient taking differently: Take 5 mg by mouth daily ) ??? aspirin 81 MG tablet Take 1 tablet (81 mg) by mouth daily ??? Calcium Carbonate-Vitamin D (CALCIUM + D PO) Take 1 tablet by mouth daily (dose unknown) ??? citalopram (CELEXA) 20 MG tablet Take 1 tablet (20 mg) by mouth daily ??? furosemide (LASIX) 20 MG tablet Take 1 tablet (20 mg) by mouth daily ??? HumaLOG VIAL 100 UNITS/ML SOLN Inject 20-40 Units Subcutaneous 3 times daily (before meals) Patient reported his dose 10-12 unit 2-3 times daily before meals ??? LANTUS VIAL 100 UNITS/ML SC SOLN Inject 50 Units Subcutaneous every evening ??? losartan-hydrochlorothiazide (HYZAAR) 100-25 MG per tablet Take 1 tablet by mouth daily ??? METOPROLOL TARTRATE PO Take 50 mg by mouth 2 times daily ??? mycophenolate (GENERIC EQUIVALENT) 250 MG capsule Take 3 capsules (750 mg) by mouth 2 times daily (generic okay) ??? PROGRAF (BRAND) 1 MG capsule Take 1 capsule (1 mg) by mouth 2 times daily ??? PROGRAF 0.5 MG capsule HOLD (take as directed for dose changes) (Patient not taking: Reported on10/25/2016) ??? rosuvastatin (CRESTOR) 10 MG tablet Take 1 tablet (10 mg) by mouth daily No current facility-administered medications for this visit. There are no discontinued medications. Physical Exam Vital Signs: BP (!) 169/76 Pulse 67 Wt 132.5 kg (292 lb 1.6 oz) SpO2 95% BMI 39.62 kg/m?? GENERAL APPEARANCE: alert and no distress HENT: mouth without ulcers or lesions LYMPHATICS: no cervical or supraclavicular nodes RESP: lungs clear to auscultation - no rales, rhonchi or wheezes CV: regular rhythm, normal rate, no rub, no murmur EDEMA: LE edema on right, BKA on left ABDOMEN: soft, nondistended, nontender, bowel sounds normal MS: extremities normal - no gross deformities noted, no evidence of inflammation in joints, no muscle tenderness SKIN: no rash TX KIDNEY: normal Data Renal Latest Ref Rng & Units 05/16/2019 09/04/2018 05/15/2018 Na 133 - 144 mmol/L - - - Na (external) 135 - 145 mmol/L 136 136 137 K 3.4 - 5.3 mmol/L - - - K (external) 3.5 - 5.0 mmol/L 4.2 4.3 5.0 Cl 94 - 109 mmol/L - - - Cl (external) 98 - 110 mmol/L 105 101 106 CO2 20 - 32 mmol/L - - - CO2 (external) 21 - 31 mmol/L 24 26 22 BUN 7 - 30 mg/dL - - - BUN (external) 8 - 25 mg/dL 17 16 27(H) Cr 0.66 - 1.25 mg/dL - - - Cr (external) 0.72 - 1.25 mg/dL 1.27(H) 1.69(H) 1.57(H) Glucose 70 - 99 mg/dL - - - Glucose (external) 65 - 100 mg/dL 266(H) 334(H) 342(H) Ca 8.5 - 10.1 mg/dL - - - Ca (external) 8.5 - 10.5 mg/dL 9.9 9.9 10.4 Mg 1.6 - 2.3 mg/dL - - - Bone Health Latest Ref Rng & Units 02/25/2014 02/18/2014 02/14/2014 Phos 2.5 - 4.5 mg/dL 1.3(L) 1.9(L) 2.4(L) PTHi 12 - 72 pg/mL - - - Heme Latest Ref Rng & Units 05/16/2019 09/04/2018 05/15/2018 WBC 4.0 - 11.0 10e9/L - - - WBC (external) 4.5 - 11.0 thou/cu mm 4.6 3.8(L) 5.9 Hgb 13.3 - 17.7 g/dL - - - Hgb (external) 13.5 - 17.5 g/dL 15.7 15.9 16.6 Plt 150 - 450 10e9/L - - - Plt (external) 140 - 440 thou/cu mm 90(L) 78(L) 107(L) Liver Latest Ref Rng & Units 01/19/2017 01/28/2015 07/29/2014 AP 40 - 150 U/L - - - AP (external) 50 - 136 U/L - 102 101 TBili 0.2 - 1.3 mg/dL - - - TBili (external) 0.2 - 1.2 mg/dL - 0.8 0.9 DBili (external) 0.1 - 0.5 mg/dL - 0.3 0.4 ALT 0 - 70 U/L - - - ALT (external) 8 - 45 IU/L 11 14 18 AST 0 - 45 U/L - - - AST (external) 2 - 40 U/L - 13 12 Tot Protein 6.8 - 8.8 g/dL - - - Tot Protein (external) 6.0 - 8.0 g/dL - 6.5 6.7 Albumin 3.3 - 4.9 g/dL - - - Albumin (external) 3.2 - 4.6 g/dL - 4.0 4.2 Pancreas Latest Ref Rng & Units 07/15/2017 05/30/2017 01/19/2017 A1C 4.3 - 6.0 % - - - A1C (external) <=6.4 % >14.0(H) 14.0(H) 12.4(H) Iron studies Latest Ref Rng & Units 02/05/2014 Iron 35 - 180 ug/dL 119 Iron sat 15 - 46 % 58(H) Ferritin 20 - 300 ng/mL 932(H) UMP Txp Virology Latest Ref Rng & Units 07/29/2014 02/08/2012 BK Quant Rapid Ext None detected None detected - Hep B Core NEG - Negative Hep B Core Ext Non-Reactive Non-Reactive - Hep B Surf - - 135.0 HIV 1&2 NEG - Negative Recent Labs Lab Test 11/03/17 1130 05/15/18 1413 05/16/19 1543 DOSTAC Not Provided Not Provided 05/16 1230AM TACROL 10.7 3.4* 4.6* Recent Labs Lab Test 02/25/14 1053 DOSMPA 02/24/141999 CORRECTED ON 02/25 AT 1055: PREVIOUSLY REPORTED 1999 MPACID 1.39 MPAG 80.2 Scribe Disclosure: I, Jeannine Carolina, am serving as a scribe to document services personally performed by Shiva Presley M.D. at this visit, based upon the provider's statements to me. All documentation has been reviewed bythe aforementioned provider prior to being entered into the official medical record. [facility] documented in this encounter Nursing Notes Josseline Recinos RN - 10/09/2019 2:45 PM CST Diego Sosa Siricyndie was seen today in clinic by this process description writer. Medications, lab orders, lab frequency,and necessary follow up discussed with patient. Patient was provided with a copy of the current lab letter. Patient voiced understanding and agreement of education and plan. Josseline Recinos RN HOME HEALTH Jeanette Finley CMA - 10/09/2019 2:45 PM CST Chief Complaint Patient presents with ??? RECHECK Post kid tx f/u Blood pressure (!) 169/76, pulse 67, weight 132.5 kg (292 lb 1.6 oz), SpO2 95 %. Jeanette Finley CMA HOME HE[facility] documented in this encounter Plan of Treatment Not on filedocumented as of this encounter Visit Diagnoses Diagnosis Kidney transplanted - Primary Kidney replaced by transplant Need for influenza vaccination Need for prophylactic vaccination and in oculation against influenza HTN, kidney transplant related Unspecified hypertensive kidney disease with chronic kidney disease stage I through stage IV, or unspecified Immunosuppression (H) Unspecified disorder of immune mechanism Skin cancer screening Screening for malignant neoplasm of the skin Hypovitaminosis D Unspecified vitamin D deficiency documented in this encounter Care Teams Area Captain Relationship Specialty Start Date End Date Momo Forbes PCP - General Family Practice 01/02/14 [facility] [address] [place] [address] documented as of this encounter
--- OUTSIDE RECORDS SUMMARY | 2022-03-30 18:44 | XMS_ITS | Encounter Summary ---
:1950 Author Organization [facility] Address [address] [facility] [place] [address] Care Team Providers Name Role Phone Momo Forbes A Primary Care Provider Reason for Visit Reason Onset Date Comments Appointment 08/24/2018 Encounter Details Date Type Department Care Team Description 08/24/2018 Telephone [facility] Nephrology Romi Garcia, RN Appointment [facility] [phone] ([facility]) [address] [place] [address] [phone] Social History Tobacco Use Types Packs/Day [...] this encounter Miscellaneous Notes Telephone Encounter - Romi Rodriguez RN - 08/25/2018 1:11 PM CST Left second message for patient to call back. Romi Rodriguez RN [employer] Telephone Encounter - Romi Rodriguez RN - 08/24/2018 1:54 PM CST Left voicemail for patient to call back (follow up from last transplant appointment). Romi Rodriguez, RN [employer] documented in this encounter Plan of Treatment Not on filedocumented as of this encounter Visit Diagnoses Not on filedocumented in this encounter Care Teams Pit Supervisor Relationship Specialty Start Date End Date Momo Forbes PCP - General Family Practice 01/02/[address] [address] documented as of this encounter
--- OUTSIDE RECORDS SUMMARY | 2022-03-30 18:44 | XMS_ITS | Encounter Summary ---
:1950 Author Organization [place] Address [address] [place] [address] Care Team Providers Name Role Phone Momo Forbes Primary Care Provider Encounter Details Date Type Department Care Team Description 05/15/2018 Orders Only M [facility] Loy Morales MD [facility] [address] [facility] [address] [place] [id number] [place] [address] [phone] Social History Tobacco Use Types Packs/Day Years [...] Associated Comments Diagnosis TACROLIMUS BY TANDEM Routine 05/15/2018 2:13 PM R esults for this MASS SPECTROMETRY CDT procedure are in the results section. CYCLOSPORINE BY Routine 05/15/2018 2:13 PM Result s for this TANDEM MASS CDT procedure are i n SPECTROMETRY the results section. documented in this encounter Results (ABNORMAL) Tacrolimus level (05/15/2018 2:13 PM CDT) [facility] gist Method Time Signature Tacrolimus Not Provided 05/18/2018 [facility] Last Dose 7:24 AM CDT [facility] Tacrolimus 3.4 (L) 5.0 - 05/18/2018 [facility] Level 15.0 ug/L 7:24 AM CDT [facility] Comment: Tacrolimus Reference Range Kidney Transplant Pediatric ?ug/L ??0-3 months post transplant ?? 10-12 ??3-6 months post transplant ?? 8-10 ??6-12 months post transplant ??6-8 ??>12 months post transplant ?? 4-7 Adult ??0-6 months post transplant ?? 8-10 ??6-12 months post transplant ??6-8 ??>12 months post transplant ?? 4-6 ??>5 years post transplant ? 3-5 Heart Transplant Pediatric ??0-12 months post transplant ??10-15 ??>12 months post transplant ?? 5-10 Adult ??0-3 months post transplant ?? 10-15 ??3-6 months post transplant ?? 8-12 ??6-12 months post transplant ??6-12 ??>12 months post transplant ?? 6-10 Lung Transplant ??0-12 months post transplant ??10-15 ??>12 months post transplant ?? 8-12 Liver Transplant Pediatric ??0-3 months post transplant ?? 10-15 ??3-6 months post transplant ?? 8-10 ??>6 months post transplant ?6-8 Adult ??0-3 months post transplant ?? 10-12 ??3-6 months post transplant ?? 8-10 ??>6 months post transplant ?6-8 Pancreas Transplant ??0-6 months post transplant ?? 8-10 ??>6 months post transplant ?5-8 This test was developed and its performa nce characteristics determined by the [facility], ??Special Chemistry Laboratory. It has not been cleared or approved by the FDA. The laboratory is regulated under CLIA as qualified to perform high-comple xity testing. This test is used for clinical purposes. It should not be rega rded as investigational or for research. Specimen Anatomical Collection Method Collection Time Receive d Time (Source) Location / / Volume Laterality 05/15/2018 2:13 PM 8 9:59 CDT AM CDT Orlando Richey MD LAB - BLOOD ORDERABLES Performing Organization Address [facility]/ZIP Code Phon e Number [facility] [address] Cyclosporine (05/15/2018 2:13 PM CDT) Component Value Ref Test Analysis Performed At [facility] Range Method Time Signature Cyclosporine CANCELLED BY 05/17/2018 [facility] Dose BOGDAN KOLB 1:00 PM CDT [facility] ETCHEVERRY ON [facility] 05/17/18 AT CAMP[facility] [address] BY [place] Comment: CORRECTED ON 05/17 AT 1300: PRE VIOUSLY REPORTED [id number] Cyclosporine Level CANCELLED BY RN 50 - 400 05/17/2018 1:00 [facility] [place] ug/L PM CDT [facility] ETCHEVERRY ON [facility] 05/17/18 AT 1300 BY MO Comment: CORRECTED ON 05/17 AT 1300: PRE VIOUSLY REPORTED <25 Specimen Anatomical Collection Method Collection Time Receive d Time (Source) Location / / Volume Laterality 05/15/2018 2:13 PM 8 9:59 CDT AM CDT Orlando Richey MD LAB - BLOOD ORDERABLES Performing Organization Address City/[facility]/ZIP Code Phon e Number [address] documented in this encounter Visit Diagnoses Not on filedocumented in this encounter Care Teams Vacuum Tank Tender Relationship Specialty Start Date End Date Momo Forbes PCP - General Family Practice 01/02/14 [facility] [address] [place] [address] documented as of this encounter
--- OUTSIDE RECORDS SUMMARY | 2022-03-30 18:44 | XMS_ITS | Encounter Summary ---
:1950 Author Organization [place] Address [address] 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 Reason for Visit Reason Comments Transplant Encounter Details Date Type Department Care Team Description 10/17/2018 Orders Only [facility] Nazia Obesity (P rimary Dx); Transplant Clinic BOGDAN Hicks Kidney transplanted [address] [place] [address] Social History Tobacco Use Types [...] as of this encounter Plan of Treatment Scheduled Referrals Name Type Priority Associated Diagnoses Order S chedule BARIATRIC ADULT Referral Routine Obesity Ordered: 10/17/2018 REFERRAL Kidney transplanted documented as of this encounter Visit Diagnoses Diagnosis Obesity - Primary Obesity, unspecified Kidney transplanted Kidney replaced by transplant documented in this encounter Care Teams Gauger Delivery Relationship Specialty Start Date End Date Momo Forbes PCP - General Family Practice 01/02/14 [facility] [address] [place] [address] documented as of this encounter
--- OUTSIDE RECORDS SUMMARY | 2022-03-30 18:44 | XMS_ITS | Encounter Summary ---
:1950 Author Organization [place] Address [address] [place] [address] Care Team Providers Name Role Phone ForbesMomo prakash A Primary Care Provider Reason for Visit Reason Comments RECHECK annual Follow up Kidney TX Encounter Details Date Type Department Care Team Description 10/17/2018 Office Visit [facility] Shiva Presley MD [facility] [address] [facility] [address] [place] [address] Type 2 diabetes mellitus with other spec ified complication, with long-term current use of insulin (H) (Primary Dx); Nephrology Clinic [facility] Kidney/Pancreas Recipient Kidney replaced by transplant; [place] Aftercare following organ tr ansplant; [address] Immunosupp ression (H); SE HTN, kidney transplant relat ed; [place], [place] Severe obesi ty in adult, BMI >40 [phone] Social History Tobacco Use Types Packs/Day [...] Sign Reading Time Taken Comments Blood Pressure 162/77 10/17/2018 1:54 PM WAREHOUSE TRAFFIC SUPERVISOR Pulse 60 10/17/2018 1:54 PM WAREHOUSE TRAFFIC SUPERVISOR Temperature 36.5 ??C (97.7 ??F) 10/17/2018 1:54 PM WAREHOUSE TRAFFIC SUPERVISOR Respiratory Rate - - Oxygen Saturation 94% 10/17/2018 1:54 PM WAREHOUSE TRAFFIC SUPERVISOR Inhaled Oxygen Concentration - - Weight 133.7 kg (294 lb 12.8 oz) 10/17/2018 1:54 PM WAREHOUSE TRAFFIC SUPERVISOR Height - - Body Mass Index 39.98 10/10/2017 2:25 PM WAREHOUSE TRAFFIC SUPERVISOR documented in this encounter Progress Notes Joseph Quintana MD - 10/17/2018 2:35 PM CST CHRONIC TRANSPLANT NEPHROLOGY VISIT Assessment & Plan # DDKT: Increased. Last creatinine was mildly elevated at 1.69. No recent tacrolimus levels. Patientnon compliant with labs. Educated as below. - Baseline Cr ~ 1.4-1.7; - Proteinuria: Mild - Date of DSA last checked: No Latest DSA: Not checked recently - BK Viremia: Not checked recently - Kidney Tx Biopsy: No # Immunosuppression: Tacrolimus immediate release (goal 4-6) and Mycophenolate mofetil (goal 1-3.5) - Changes: No # Hypertension: Inadequate control; Goal BP: < 130/80 - Changes: No. Not checked at home, although higher at this clinic visit, but patient didn't take medications. On amlodipine 10 mg daily, Hyzaar 1 tab daily, metoprolol 50mg BID. # Diabetes: Inadequate control. Last HbA1c >14.0%. On Insulin- patient admits to missing more then 50%0. Also offered to refer to hat brusher machine. # Mineral Bone Disorder: - Secondary renal hyperparathyroidism; PTH level is: Not checked recently - Vitamin D; level is: Not checked recently - Calcium; level is: Normal # Obesity: BMI > 40. Educated about weight loss. - Recommend increased exercise and watch caloric intake. Offered to refer to weight management clinic. # Skin Cancer: - New lesions: one, s/p surgery. - Discussed sun protection and recommend regular follow up with Dermatology # Medical Compliance: No. Discussed importance of checking labs regularly as recommended, taking medications as prescribed and attending scheduled medical appointments Return visit: Return in about 6 months (around 04/16/2019). # Transplant History: Etiology of kidney failure: diabetic nephropathy Tx: DDKT Transplant: 02/02/2014 (Kidney) Donor Type: - Brain Donor Class: Expanded Criteria Donor History of BK viremia: No History of CMV viremia: No History of EBV viremia: No Significant changes in immunosuppression: None Significant transplant-related complications: None Transplant Office Assessment and plan was discussed with the patient and he voiced his understanding and agreement. Mamadou Gonzalez MD Attestation: This patient has been seen and evaluated by me, Joseph Quintana MD. I have reviewed the note and agree with plan of care as documented by the fellow. Chief Complaint Mr. Guthrie is a 68 year old here for routine follow up. History of Present Illness Diego Guthrie is a 68 year old male with ESKD from Type 2 Diabetes and is status post DDKT on 02/02/14. He was last seen in clinic on 03/15/2018. He has not had any major illnesses or hospitalization. He has no complaints today. Appetite is good with stable weight. No nausea, vomiting or diarrhea. No fever, sweats or chills. No leg swelling. No pain or burning with urination. ?? Recent Hospitalizations: [x] No [] Yes New Medical Issues: [x] No [] Yes Decreased energy: [x] No [] Yes Chest pain or SOB with exertion: [x] No [] Yes Appetite change or weight change: [x] No [] Yes Nausea, vomiting or diarrhea: [x] No [] Yes Fever, sweats or chills: [x] No [] Yes Leg swelling: [x] No [] Yes Home BP: Not checked Review of Systems A comprehensive review of systems was obtained and negative, except as noted in the HPI or PMH. Problem List Patient Active Problem List Diagnosis ??? Hyperlipidemia ??? Gout ??? Peripheral neuropathy ??? Diabetic retinopathy (H) ??? Essential hypertension ??? Anemia ??? DM (diabetes mellitus), type 2 (H) ??? History of tobacco use ??? Thrombocytopenia (H) ??? Malaise and fatigue ??? Dialysis patient (H) ??? Depression ??? Organ transplant candidate ??? Screening for cardiovascular condition ??? ESRD (end stage renal disease) on dialysis (H) ??? Atrial fibrillation (H) ??? Immunosuppressed status (H) ??? High risk medication use ??? S/P kidney transplant ??? Kidney replaced by transplant Social History Social History Tobacco Use ??? Smoking status: Former Smoker Years: 5.00 Types: Cigars Last attempt to quit: 08/22/2006 Years since quittin.1 ??? Smokeless tobacco: Never Used Substance Use Topics ??? Alcohol use: Yes Alcohol/week: 0.0 oz Comment: occasional drink. ??? Drug use: No [...] Inject 50 Units Subcutaneous every evening ??? mycophenolate (GENERIC EQUIVALENT) 250 MG capsule Take 3 capsules (750 mg) by mouth 2 times daily (generic okay) ??? PROGRAF (BRAND) 1 MG CAPSULE Take 1 capsule (1 mg) by mouth 2 times daily ??? losartan-hydrochlorothiazide (HYZAAR) 100-25 MG per tablet Take 1 tablet by mouth daily ??? METOPROLOL TARTRATE PO Take 50 mg by mouth 2 times daily ??? PROGRAF 0.5 MG capsule HOLD (take as directed for dose changes) (Patient not taking: Reported on10/25/2016) ??? rosuvastatin (CRESTOR) 10 MG tablet Take 1 tablet (10 mg) by mouth daily No current facility-administered medications for this visit. There are no discontinued medications. Physical Exam Vital Signs: BP 162/77 (BP Location: Left arm) Pulse 60 Temp 97.7 ??F (36.5 ??C) (Oral) Wt 133.7 kg (294 lb 12.8 oz) SpO2 94% BMI 39.98 kg/m?? GENERAL APPEARANCE: alert and no distress, obese. HENT: mouth without ulcers or lesions LYMPHATICS: no cervical or supraclavicular nodes RESP: lungs clear to auscultation - no rales, rhonchi or wheezes CV: regular rhythm, normal rate, no rub, no murmur EDEMA: no LE edema bilaterally ABDOMEN: soft, nondistended, nontender, bowel sounds normal MS: extremities normal - no gross deformities noted, no evidence of inflammation in joints, no muscle tenderness SKIN: no rash TX KIDNEY: normal DIALYSIS ACCESS: RUE AV Fistula with thrill and bruit Data Renal Latest Ref Rng & Units 09/04/2018 05/15/2018 07/15/2017 Na 133 - 144 mmol/L - - - Na (external) 135 - 145 mmol/L 136 137 135 K 3.4 - 5.3 mmol/L - - - K (external) 3.5 - 5.0 mmol/L 4.3 5.0 4.2 Cl 94 - 109 mmol/L - - - Cl (external) 98 - 110 mmol/L 101 106 104 CO2 20 - 32 mmol/L - - - CO2 (external) 21 - 31 mmol/L 26 22 22 BUN 7 - 30 mg/dL - - - BUN (external) 8 - 25 mg/dL 16 27(H) 26(H) Cr 0.66 - 1.25 mg/dL - - - Cr (external) 0.72 - 1.25 mg/dL 1.69(H) 1.57(H) 1.53(H) Glucose 70 - 99 mg/dL - - - Glucose (external) 65 - 100 mg/dL 334(H) 342(H) 347(H) Ca 8.5 - 10.1 mg/dL - - - Ca (external) 8.5 - 10.5 mg/dL 9.9 10.4 10.1 Mg 1.6 - 2.3 mg/dL - - - Bone Health Latest Ref Rng & Units 02/25/2014 02/18/2014 02/14/2014 Phos 2.5 - 4.5 mg/dL 1.3(L) 1.9(L) 2.4(L) PTHi 12 - 72 pg/mL - - - Heme Latest Ref Rng & Units 09/04/2018 05/15/2018 05/30/2017 WBC 4.0 - 11.0 10e9/L - - - WBC (external) 4.5 - 11.0 thou/cu mm 3.8(L) 5.9 4.4(L) Hgb 13.3 - 17.7 g/dL - - - Hgb (external) 13.5 - 17.5 g/dL 15.9 16.6 15.7 Plt 150 - 450 10e9/L - - - Plt (external) 140 - 440 thou/cu mm 78(L) 107(L) 103(L) Liver Latest Ref Rng & Units 01/19/2017 [...] NEG - Negative Recent Labs Lab Test 07/15/17 1048 11/03/17 1130 05/15/18 1413 DOSTAC 0000 07/15/17 Not Provided Not Provided TACROL 4.4* 10.7 3.4* Recent Labs Lab Test 02/25/14 1053 DOSMPA 02/24/141999 CORRECTED ON 02/25 AT 1055: PREVIOUSLY REPORTED 1999 MPACID 1.39 MPAG 80.2 HOUSE TRAFFIC SUPERVISOR documented in this encounter Nursing Notes Martina Boyle CMA - 10/17/2018 2:35 PM CST Chief Complaint Patient presents with ??? RECHECK annual Follow up Kidney TX Vital signs: Temp: 97.7 ??F (36.5 ??C) Temp src: Oral BP: 162/77 Pulse: 60 SpO2: 94 % Weight: 133.7 kg (294 lb 12.8 oz) Estimated body mass index is 39.98 kg/m?? as calculated from the following: Height as of 10/10/17: 1.829 m (6'). Weight as of this encounter: 133.7 kg (294 lb 12.8 oz). 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
--- OUTSIDE RECORDS SUMMARY | 2022-03-30 18:44 | XMS_ITS | Encounter Summary ---
:1950 Author Organization [place] Address [address] [place] [address] Care Team Providers Name Role Phone ForbesMomo prakash A Primary Care Provider Reason for Visit Reason Onset Date Comments Transplant Lab 09/06/2018 Encounter Details Date Type Department Care Team Description 09/06/2018 Telephone [facility] Transplant [place], Transplant Lab Clinic BOGDAN Lopes [address] [place] [phone] Social History Tobacco Use Types Packs/Day [...] this encounter Miscellaneous Notes Telephone Encounter - Marianne Urias RN - 09/12/2018 11:58 AM DERRICK BOAT CAPTAIN Attempted to reach pt again regarding his labs, no answer. Left message for pt to return call. ICK BOAT CAPTAIN Telephone Encounter - Marianne Urias RN - 09/07/2018 1:30 PM DERRICK BOAT CAPTAIN Attempted to reach pt again regarding labs, no answer. Left message for pt to return call. ICK BOAT CAPTAIN Telephone Encounter - Marianne Urias RN - 09/06/2018 12:59 PM DERRICK BOAT CAPTAIN ISSUE: Creatinine 1.69, up from pt baseline ~1.5 Glucose levels 334-pt followed by local PCP [facility] elevated at 0.7 PLAN: Please call pt to ensure pt is drinking 2-3L/day, no new illness/fever/malaise/abdominal pain/edema,medication changes, or normal UOP. If the above is normal, encourage continued hydration and repeat labs next week. Please place order for BMP. Pt to f/u with PCP regarding glucose management. Please f/u with pt regarding his BP status and protein intake. Doesn't appear pt is currently on dharmesh/arb. RNCC to review with MD team in regards to starting med. OUTCOME: Call placed to pt, no answer. Left message for pt to return call. ICK BOAT CAPTAIN documented in this encounter Plan of Treatment Not on filedocumented as of this encounter Visit Diagnoses Not on filedocumented in this encounter Care Teams Telegraph Operator Relationship Specialty Start Date End Date Momo Forbes PCP - General Family Practice 01/02/14 [facility] [address] [place] [address] documented as of this encounter
--- OUTSIDE RECORDS SUMMARY | 2022-03-30 18:44 | XMS_ITS | Encounter Summary ---
:1950 Author Organization [place] Address [address] [place] [address]. [place] [address] Care Team Providers Name Role Phone Momo Forbes Primary Care Provider Encounter Details Date Type Department Care Team Description [facility]/10[facility]2017 [facility] [place] [phone] Social History Tobacco Use Types Packs/Day Years [...] as of this encounter Visit Diagnoses Diagnosis Renal hypertension, stage 1-4 or unspeci fied chronic kidney disease documented in this encounter Care Teams Chief Dispatcher Relationship Specialty Start Date End Date Momo Forbes PCP - General Family Practice 01/02/14 [facility] [address] [place] [address] documented as of this encounter
--- OUTSIDE RECORDS SUMMARY | 2022-03-30 18:44 | XMS_ITS | Encounter Summary ---
:1950 Author Organization [facility] Address [address] [place] [address]. [place] [address] Care Team Providers Name Role Phone Momo Forbes Primary Care Provider Reason for Visit Reason Onset Date Comments Refill Request 02/28/2019 Encounter Details Date Type Department Care Team Description 02/28/2019 Refill [facility] Shiva Presley MD Refill Request [facility]phrology [facility] [place] [phone] Social History Tobacco Use Types Packs/Day Years [...] disease documented in this encounter Care Teams Steel Welder Relationship Specialty Start Date End Date Momo Forbes PCP - General Family Practice 01/02/14 [facility] [address] [place], [place] [id number] documented as of this encounter
--- OUTSIDE RECORDS SUMMARY | 2022-03-30 18:44 | XMS_ITS | Encounter Summary ---
:1950 Author Organization [place] Address [address] [place] [address]. [place] [address] Care Team Providers Name Role Phone Momo Forbes Primary Care Provider Reason for Visit Reason Onset Date Comments Transplant Pharmacy Medication Review 01/19/2018 Encounter Details Date Type Department Care Team Description 01/19/2018 Telephone [facility] Beny Staton, Transplant Pharmacy [address] [facility] [place] [address] [facility] [phone] PHARMACY [place], [place] [address] Social History Tobacco Use Types Packs/Day Years [...] on filedocumented in this encounter Care Teams Yarn Inspector Relationship Specialty Start Date End Date Momo Forbes PCP - General Family Practice 01/02/14 [facility] [address] [place] [address] documented as of this encounter
--- OUTSIDE RECORDS SUMMARY | 2022-03-30 18:44 | XMS_ITS | Encounter Summary ---
:1950 Author Organization [place] Address [address] [place] [address]. [place] [address] Care Team Providers Name Role Phone Momo Forbes Primary Care Provider Reason for Visit Reason Onset Date Comments Refill Request 01/17/2019 Encounter Details Date Type Department Care Team Description 01/17/2019 Refill [facility] Joseph Quintana MD Refill Request Transplant Clinic [address] [place] [phone] [place] [address] (Wo rk) Social History Tobacco [...] Diagnosis Kidney transplanted Kidney replaced by transplant documented in this encounter Care Teams Night Clerk Relationship Specialty Start Date End Date Momo Forbes PCP - General Family Practice 01/02/14 [facility] [address] [place] [address] documented as of this encounter
--- OUTSIDE RECORDS SUMMARY | 2022-03-30 18:44 | XMS_ITS | Encounter Summary ---
:1950 Author Organization [place] Address [address] [place] [address]. [place] [address] Care Team Providers Name Role Phone Momo Forbes Primary Care Provider Encounter Details Date Type Department Care Team Description 05/17/2018 Orders Only [facility] Alana Calderon Afterc are following Transplant marshmallow maker organ transplant [address] [place] [address] (Primary Dx) [place] [address] Social History Tobacco Use Types [...] as of this encounter Visit Diagnoses Diagnosis Aftercare following organ transplant - P rimary documented in this encounter Care Teams Sales Effectiveness Manager Relationship Specialty Start Date End Date Momo Forbes PCP - General Family Practice 01/02/14 [facility] [address] [place] [address] documented as of this encounter
--- OUTSIDE RECORDS SUMMARY | 2022-03-30 18:44 | XMS_ITS | Encounter Summary ---
:1950 Author Organization [facility] [place] Address [address] [facility] [place] [address] Care Team Providers Name Role Phone Momo Forbes A Primary Care Provider Reason for Visit Reason Onset Date Comments Refill Request 10/25/2018 Encounter Details Date Type Department Care Team Description 10/25/2018 Refill [facility] Joseph Quintana MD Refill Request Transplant Clinic [address] [place] [address] [phone] [place] [address] (Wo rk) Social History Tobacco [...] Telephone Encounter - Marianne Urias RN - 10/26/2018 9:04 AM TEAM LEADER SURGERY ISSUE: Refill request for MMF 03/2019 appt 04/2018 lab OUTCOME: Call placed to pt, no answer. Left detailed message letting pt know we will fill 1 month supply without refills. Pt educated he needs to updated transplant lab and cont on every other month schedule per protocol. Pt educated once labs updated, we can place further refills. Pt encouraged to call if further questions or concerns. LEADER SURGERY documented in this encounter Plan of Treatment Not on filedocumented as of this encounter Visit Diagnoses Diagnosis Kidney transplanted Kidney replaced by transplant documented in this encounter Care Teams Clinical Support Tech Relationship Specialty Start Date End Date Momo Forbes PCP - General Family Practice 01/02/14 [facility] [address] [place] [address] documented as of this encounter
--- OUTSIDE RECORDS SUMMARY | 2022-03-30 18:44 | XMS_ITS | Encounter Summary ---
:1950 Author Organization [place] Address [facility] [place] [address] Care Team Providers Name Role Phone ForbesMomo santiaog A Primary Care Provider Encounter Details Date Type Department Care Team Description 08/18/2018 Documentation Only [facility] Josseline Recinos, Transplant Clinic RN [address] [place] [address] Social History Tobacco Use Types [...] on file documented as of this encounter Progress Notes Josseline Recinos RN - 08/18/2018 12:28 AM CST Chart Prep Clinic Visit on: 10/17/18 Last lab completed: 05/15/18 Lab letter updated: 08/17/18 Lab orders faxed to: [facility] [phone] (Phone) Lab orders up to date in [facility]. AGE CENTER SUPERVISOR documented in this encounter Plan of Treatment Not on filedocumented as of this encounter Visit Diagnoses Not on filedocumented in this encounter Care Teams Clinical Research Spec Relationship Specialty Start Date End Date Momo Forbes PCP - General Family Practice 01/02/14 [facility] [address] [place] [address] documented as of this encounter
--- OUTSIDE RECORDS SUMMARY | 2022-03-30 18:44 | XMS_ITS | Encounter Summary ---
:1950 Author Organization [place] Address [facility] [place] [address] Care Team Providers Name Role Phone ForbesMomo Primary Care Provider Reason for Visit Reason Comments Clinic Care Coordination - Follow-up Encounter Details Date Type Department Care Team Description 11/16/2019 Care Coordination [facility] Sejal Rodriguez Care Nephrology Clinic BOGDAN Llanos Coordination - [place] [phone] Follow-up [address] [place] [address] (Work) [place] [address] Social History Tobacco Use Types [...] documented as of this encounter Progress Notes Romi Rodriguez RN - 11/16/2019 9:49 AM CDT Nephrology Note: Nursing Outreach Encounter REASON FOR CALL: REASON FOR CALL: Blood Pressure Follow Up SITUATION/BACKROUND: Patient is being treated for kidney transplant. ASSESSMENT: Checked in with Diego. Said he's doing well at home, denied any symptoms or concerns. BP is stable around 120/70. He denied questions for the team today, will continue to monitor BP and update clinic of any changes. Uremic Symptoms: No PLAN: Follow Up: Patient to call/MyChart message with updates Patient verbalized understanding and will contact the clinic with any further questions or concerns. Romi Rodriguez, RN documented in this encounter Plan of Treatment Not on filedocumented as of this encounter Visit Diagnoses Not on filedocumented in this encounter Care Teams Defensive Driving Instructor Relationship Specialty Start Date End Date Momo Forbes PCP - General Family Practice 01/02/14 [facility] [address] [place] [address] documented as of this encounter
--- OUTSIDE RECORDS SUMMARY | 2022-03-30 18:44 | XMS_ITS | Encounter Summary ---
:1950 Author Organization [place] Address [address] [place] [address]. [place] [address] Care Team Providers Name Role Phone Momo Forbes Primary Care Provider Encounter Details Date Type Department Care Team Description 09/26/2019 Medical Correspondence [facility] Scan, BLOOD GLUCOSE LOG Health Info Mgmt Non-Provider Srvcs [address] [place] [phone] Social History Tobacco Use Types Packs/Day Years [...] on filedocumented in this encounter Care Teams Child Care Development Specialist Relationship Specialty Start Date End Date Momo Forbes PCP - General Family Practice 01/02/14 [facility] [address] [place] [address] documented as of this encounter
--- OUTSIDE RECORDS SUMMARY | 2022-03-30 18:44 | XMS_ITS | Encounter Summary ---
:1950 Author Organization [place] Address [address] [place] [address]. [place] [address] Care Team Providers Name Role Phone Momo Forbes Primary Care Provider Reason for Visit Reason Onset Date Comments Erroneous encounter-disregard 05/17/2018 Encounter Details Date Type Department Care Team Description 05/17/2018 Telephone [facility] Et[place]verry, Erroneous Transplant Clinic BOGDAN Lopes encounter-disregard [address] [place] [phone] Social History Tobacco Use Types Packs/Day [...] on filedocumented in this encounter Care Teams Managing Manager Relationship Specialty Start Date End Date Momo Forbes PCP - General Family Practice 01/02/14 [facility] [address] [place] [address] documented as of this encounter
--- OUTSIDE RECORDS SUMMARY | 2022-03-30 18:44 | XMS_ITS | Encounter Summary ---
:1950 Author Organization [place] Address [address] [place] [address]. [place] [address] Care Team Providers Name Role Phone Momo Forbes Primary Care Provider Encounter Details Date Type Department Care Team Description 10/09/2019 Travel Social History Tobacco Use Types Packs/Day [...] on filedocumented in this encounter Care Teams Sewer Pipe Offbearer Relationship Specialty Start Date End Date Momo Forbes PCP - General Family Practice 01/02/14 [facility] [address] [place] [address] documented as of this encounter
--- OUTSIDE RECORDS SUMMARY | 2022-03-30 18:44 | XMS_ITS | Encounter Summary ---
:1950 Author Organization [place] Address [address] [place] [address]. [place] [address] Care Team Providers Name Role Phone Momo Forbes Primary Care Provider Encounter Details Date Type Department Care Team Description 07/16/2019 Travel Social History Tobacco Use Types Packs/Day [...] on filedocumented in this encounter Care Teams Splitting Machine Operator Relationship Specialty Start Date End Date Momo Forbes PCP - General Family Practice 01/02/14 [facility] [address] [place] [address] documented as of this encounter
--- OUTSIDE RECORDS SUMMARY | 2022-03-30 18:44 | XMS_ITS | Encounter Summary ---
:1950 Author Organization [place] Address [facility] [place] [address] Care Team Providers Name Role Phone Forbes, Ton Primary Care Provider Reason for Visit Reason Onset Date Comments Transplant Lab 05/16/2019 Encounter Details Date Type Department Care Team Description 05/16/2019 Telephone [facility] Trans plant Lab Transplant Clinic Amanda Fletcher RN [address] [phone] Social History Tobacco Use Types Packs/Day [...] Telephone Encounter - Cristy Chen LPN - 05/16/2019 3:16 PM CDT Current standing lab orders faxed to patients lab. Telephone Encounter - Azael Rodriguez - 05/16/2019 3:10 PM CDT Provider Call: Transplant Lab/Orders Route to RAILROAD CONSTRUCTION DIRECTOR Post Transplant Days: 1929 When patient is less than 60 days post-transplant, route high priority Reason for Call: updated lab order faxed Liver patients reporting abnormal lab results: Route to RN and Page Document lab facility information when provider is calling about annual lab orders. Delete facility wildcards when not needed. Facility Name: [facility] Location: [place], [place] Outside Facility Callback needed? If needed documented in this encounter Plan of Treatment Not on filedocumented as of this encounter Visit Diagnoses Diagnosis Kidney replaced by transplant - Primary Aftercare following organ transplant Encounter for long-term current use of m edication documented in this encounter Care Teams Plant Sprayer Relationship Specialty Start Date End Date Momo Forbes PCP - General Family Practice 01/02/14 [facility] [address] [place] [address] documented as of this encounter
--- OUTSIDE RECORDS SUMMARY | 2022-03-30 18:44 | XMS_ITS | Encounter Summary ---
:1950 Author Organization [place] Address [facility] [place] [address] Care Team Providers Name Role Phone Momo Forbes Primary Care Provider Reason for Visit Reason Onset Date Comments Transplant Pharmacy Medication Review 01/10/2019 Encounter Details Date Type Department Care Team Description 01/10/2019 Telephone [facility] Meghan Mccormack, [facility] Transplant Pharmacy [address] [facility] [place] [address] PHARMACY [phone] [address], [place] [address] (Wo rk) Social History Tobacco Use Types [...] on filedocumented in this encounter Care Teams Welt Pocket Machine Operator Relationship Specialty Start Date End Date Momo Forbes PCP - General Family Practice 01/02/14 [facility] [address] [place] [address] documented as of this encounter
--- OUTSIDE RECORDS SUMMARY | 2022-03-30 18:44 | XMS_ITS | Encounter Summary ---
:1950 Author Organization [place] Address [facility] [place] [address] Care Team Providers Name Role Phone Momo Forbes A Primary Care Provider Reason for Visit Reason Comments Clinic Care Coordination - Follow-up Encounter Details Date Type Department Care Team Description 10/25/2019 Care Coordination [facility] Sejal Rodriguez Care Nephrology Clinic BOGDAN Llanos Coordination - [place] [phone] Follow-up 9 [facility] (Work) [place] [address] Social History Tobacco Use Types [...] encounter Progress Notes Romi Rodriguez RN - 10/25/2019 10:15 AM CST Left message for patient to call back (follow up BP). oRmi Rodriguez RN HT RADIO OFFICER Romi Rodriguez RN - 10/25/2019 10:15 AM CST Nephrology Note: Nursing Outreach Encounter REASON FOR CALL: REASON FOR CALL: Blood Pressure Follow Up SITUATION/BACKROUND: Patient is being treated for HTN, transplant. ASSESSMENT: Spoke with patient. He's been doing well since the appointment, denied any symptoms or concerns. HisBP is primarily in the 120/70's, with occasional fluctuation. He will continue to monitor this. Uremic Symptoms: No PLAN: Follow Up: Follow up call in 2-3 weeks Patient verbalized understanding and will contact the clinic with any further questions or concerns. Romi Rodriguez, BOGDAN HT RADIO OFFICER documented in this encounter Plan of Treatment Not on filedocumented as of this encounter Visit Diagnoses Not on filedocumented in this encounter Care Teams Accounting Administrative Assistant Relationship Specialty Start Date End Date Momo Forbes PCP - General Family Practice 01/02/14 [facility] [address] [place] [address] documented as of this encounter
--- OUTSIDE RECORDS SUMMARY | 2022-03-30 18:44 | XMS_ITS | Encounter Summary ---
:1950 Author Organization [place] Address [facility]0 [facility] [place] [address] Care Team Providers Name Role Phone Momo Forbes Primary Care Provider Joseph Quintana MD Unavailable Encounter Details Date Type Department Care Team Description 05/15/2018 External Order Results [facility] Nurse, [facility] Transplant Clinic [address] [place] [address] Social History Tobacco Use Types [...] Name Priority Date/Time Associated Diagnosis Comme nts BASIC METABOLIC Routine 05/15/2018 2:16 PM Result s for this PANEL CDT procedure are i n the results section. CBC WITH PLATELETS Routine 05/15/2018 2:16 PM Res ults for this CDT procedure are i n the results section. documented in this encounter Results (ABNORMAL) CBC with platelets (05/15/2018 2:16 PM CDT) athologist Signature WBC Count 5.9 4.5 - 11.0 LABDE SCAN (External) thou/cu mm RBC Count 5.75 4.30 - LABDE SCAN (External) 5.90 mil/cu mm Hemoglobin 16.6 13.5 - LABDE SCAN (External) 17.5 g/dL Hematocrit 48.4 37.0 - LABDE SCAN (External) 53.0 % MCV (External) 84 80 - 100 LABDE SCAN fL MCH (External) 28.9 26.0 - LABDE SCAN 34.0 pg MCHC (External) 34.3 32.0 - LABDE SCAN 36.0 g/dL RDW (External) 14.5 11.5 - LABDE SCAN 15.5 % Platelet Count 107 (L) 140 - 440 LABDE SCAN (External) thou/cu mm Specimen (Source) Anatomical Collection Method Collection Time Re ceived Time Location / / Volume Laterality Blood specimen 05/15/2018 2:16 PM (specimen) CDT Narrative ZACHERYTYLER PFT - 05/16/2018 12:16 PM CDT Verified by Gabby Nayak on 04/23. Patient Reported LAB - BLOOD ORDERABLES Performing Organization Address City/State/ZIP Code Phon e Number BREEZE PFT LABDE SCAN (ABNORMAL) Basic metabolic panel (05/15/2018 2:16 PM CDT) Analysis Performed At Patho logist Time Signature Sodium 137 135 - 145 LABDE SCAN (External) mmol/L Potassium 5.0 3.5 - 5.0 LABDE SCAN (External) mmol/L Chloride 106 98 - 110 LABDE SCAN (External) mmol/L (External) CO2 (External) 22 21 - 31 LABDE SCAN mmol/L Anion Gap 9 5 - 18 LABDE SCAN (External) Glucose 342 (H) 65 - 100 LABDE SCAN (External) mg/dL Calcium 10.4 8.5 - 10.5 LABDE SCAN (External) mg/dL Urea Nitrogen 27 (H) 8 - 25 LABDE SCAN (External) mg/dL Creatinine 1.57 (H) 0.72 - LABDE SCAN (External) 1.25 mg/dL BUN/Creatinine 17 10 - 20 LABDE SCAN Ratio (External) GFR Estimated 54 (L) >60 LABDE SCAN (if ml/min/1.7 Hong Konger) 3m2 (External) GFR Estimated 44 (L) >60 LABDE SCAN (External) ml/min/1.7 3m2 Specimen (Source) Anatomical Collection Method Collection Time Re ceived Time Location / / Volume Laterality Blood specimen 05/15/2018 2:16 PM (specimen) CDT Narrative [facility]REEZE PFT - 05/16/2018 12:16 PM CDT Verified by Gabby Nayak on 04/23. Patient Reported LAB - BLOOD ORDERABLES Performing Organization Address City/State/ZIP Code Phon e Number BREE[facility] PFT LABDE SCAN documented in this encounter Visit Diagnoses Not on filedocumented in this encounter Care Teams Roadway Engineer Relationship Specialty Start Date End Date Momo Forbes PCP - General Family Practice 01/02/14 [facility] [address] [place] [address] Joseph Quintana, Assigned Nephrology 03/29/21 Provider 7 [facility] 353 [facility] [address] [place], [place] [id number] documented as of this encounter
--- OUTSIDE RECORDS SUMMARY | 2022-03-30 18:44 | XMS_ITS | Encounter Summary ---
:1950 Author Organization [place] Address [facility] [place] [address] Care Team Providers Name Role Phone Momo Forbes Primary Care Provider Joseph Quintana MD Unavailable Encounter Details Date Type Department Care Team Description 05/16/[address] [facility] Nurse, Txc Afterca re following organ transplant; Results Transplant Clinic Kidney replaced by transplan t; [address] [place] [address] Encounter for long-term [place] [address] Social History Tobacco Use Types [...] Comments Diagnosis CBC WITH PLATELETS & Routine 05/16/2019 3:43 PM R esults for this DIFFERENTIAL CDT procedure are i n the results section. BASIC METABOLIC PANEL Routine 05/16/2019 3:43 PM Aftercare fol lowing Results for this CDT organ transplant procedure are in Kidney replaced by the resul ts transplant section. Encounter for long-term current use of medication PROTEIN RANDOM URINE Routine 05/16/2019 3:36 PM Aftercare foll owing Results for this CDT organ transplant procedure are in Kidney replaced by the resul ts transplant section. Encounter for long-term current use of medication documented in this encounter Results (ABNORMAL) CBC with platelets differential (05/16/2019 3:43 PM CDT) P athologist Signature WBC Count 4.6 4.5 - 11.0 LABDE SCAN (External) thou/cu mm RBC Count 5.42 4.30 - LABDE SCAN (External) 5.90 mil/cu mm Hemoglobin 15.7 13.5 - LABDE SCAN (External) 17.5 g/dL Hematocrit 46.1 37.0 - LABDE SCAN (External) 53.0 % MCV (External) 85 80 - 100 LABDE SCAN fL MCH (External) 29.0 26.0 - LABDE SCAN 34.0 Pg MCHC (External) 34.1 32.0 - LABDE SCAN 36.0 g/dL RDW (External) 14.1 11.5 - LABDE SCAN 15.5 % Platelet Count 90 (L) 140 - 440 LABDE SCAN (External) thou/cu mm % Neutrophils 58.3 % LABDE SCAN (External) % Lymphocytes 26.7 % LABDE SCAN (External) % Monocytes 8.7 % LABDE SCAN (External) % Eosinophils 6.1 % LABDE SCAN (External) % Basophils 0.2 % LABDE SCAN (External) Absolute 2.7 1.7 - 7.0 LABDE SCAN Neutrophils thou/cu mm (External) Absolute 1.2 0.9 - 2.9 LABDE SCAN Lymphocytes thou/cu mm (External) Absolute 0.4 <0.9 LABDE SCAN Monocytes thou/cu mm (External) Absolute 0.3 <0.5 LABDE SCAN Eosinophils thou/cu mm (External) Absolute 0.0 <0.3 LABDE SCAN Basophils thou/cu mm (External) Specimen (Source) Anatomical Collection Method Collection Time Re ceived Time Location / / Volume Laterality Blood specimen 05/16/2019 3:43 PM (specimen) CDT Yohana LOPEZ PFT - 05/17/2019 1:22 PM CDT Verified by Praful Huff on 2018. Patient Reported LAB - BLOOD ORDERABLES Performing Organization Address City/State/ZIP Code Phon e Kristina LOPEZ PFT LABDE SCAN (ABNORMAL) Basic metabolic panel (05/16/2019 3:43 PM CDT) Analysis Performed At Patho [facility] Time Signature Sodium 136 135 - 145 LABDE SCAN (External) mmol/L Potassium 4.2 3.5 - 5.0 LABDE SCAN (External) mmol/L Chloride 105 98 - 110 LABDE SCAN (External) mmol/L (External) CO2 (External) 24 21 - 31 LABDE SCAN mmol/L Anion Gap 7 5 - 18 LABDE SCAN (External) Glucose 266 (H) 65 - 100 LABDE SCAN (External) mg/dL Calcium 9.9 8.5 - 10.5 LABDE SCAN (External) mg/dL Urea Nitrogen 17 8 - 25 LABDE SCAN (External) mg/dL Creatinine 1.27 (H) 0.72 - LABDE SCAN (External) 1.25 mg/dL BUN/Creatinine 13 10 - 20 LABDE SCAN Ratio (External) GFR Estimated >60 >60 LABDE SCAN (if ml/min/1.7 Grenadian) 3m2 (External) GFR Estimated 56 (L) >60 LABDE SCAN (External) ml/min/1.7 3m2 Specimen (Source) Anatomical Collection Method Collection Time Re ceived Time Location / / Volume Laterality Blood specimen 05/16/2019 3:43 PM (specimen) CDT Narrative JESSICA PFT - 05/17/2019 1:22 PM CDT Verified by Praful Huff on 2018. Joseph Quintana MD LAB - BLOOD ORDERABLES Performing Organization Address City/State/ZIP Code Phon e Number JESSICA PFT LABDE SCAN (ABNORMAL) Protein random urine with Creat Ratio (05/16/2019 3:36 PM CDT) Analysis Performed At Patho [facility] Time Signature Protein Random 41 (H) <=14 mg/dL LABDE SCAN Urine (External) Creatinine 59.4 (L) 63.0 - LABDE SCAN Urine mg/dL 166.0 (External) mg/dL Protein Total 0.7 (H) <0.2 LABDE SCAN Ur per Cr (External) Specimen (Source) Anatomical Collection Method Collection Time Re ceived Time Location / / Volume Laterality Urine specimen 05/16/2019 3:36 PM (specimen) CDT Narrative JESSICA PFT - 05/17/2019 1:22 PM CDT Verified by Praful Huff on 2018. Joseph Quintana MD LAB - URINE ORDERABLES Performing Organization Address City/State/ZIP Code Phon e Number JESSICA PFT LABDE SCAN documented in this encounter Visit Diagnoses Diagnosis Aftercare following organ transplant Kidney replaced by transplant Encounter for long-term current use of m edication documented in this encounter Care Teams Case Supervisor Relationship Specialty Start Date End Date Momo Forbes PCP - General Family Practice 01/02/14 [facility] [address] [place] [address] Joseph Quintana, Assigned Nephrology 03/29/21 Provider [address] [facility] [address] [facility] [address] [place] [address] documented as of this encounter
--- OUTSIDE RECORDS SUMMARY | 2022-03-30 18:44 | XMS_ITS | Encounter Summary ---
:1950 Author Organization [place] Address [facility]0 [facility] [place] [address] Care Team Providers Name Role Phone Momo Forbes Primary Care Provider Encounter Details Date Type Department Care Team Description 10/09/2019 Orders Only [facility] Transplant Mati Recinos RN Clinic [address] [place], [place] [phone] Social History Tobacco Use Types Packs/Day [...] encounter Progress Notes Josseline Recinos RN - 10/09/2019 3:48 PM CST Orders updated. Faxed to new lab: [facility] T [phone] F [phone] LSMITH documented in this encounter Plan of Treatment Not on filedocumented as of this encounter Visit Diagnoses Not on filedocumented in this encounter Care Teams Kiln Tester Relationship Specialty Start Date End Date Forbes, Ton PCP - General Family Practice 01/02/14 [facility] [address] [place] [address] documented as of this encounter
--- OUTSIDE RECORDS SUMMARY | 2022-03-30 18:44 | XMS_ITS | Encounter Summary ---
:1950 Author Organization [place] Address [address] [place] [address]. [place] [address] Care Team Providers Name Role Phone Momo Forbes Primary Care Provider Encounter Details Date Type Department Care Team Description 04/05/2019 Travel Social History Tobacco Use Types Packs/Day [...] on filedocumented in this encounter Care Teams Industrial Mechanic Relationship Specialty Start Date End Date Momo Forbes PCP - General Family Practice 01/02/14 [facility] [address] [place] [address] documented as of this encounter
--- OUTSIDE RECORDS SUMMARY | 2022-03-30 18:44 | XMS_ITS | Encounter Summary ---
:1950 Author Organization [place] Address [address] [place] [address]. [place] [address] Care Team Providers Name Role Phone Momo Forbes Primary Care Provider Encounter Details Date Type Department Care Team Description 07/06/2019 Travel Social History Tobacco Use Types Packs/Day [...] on filedocumented in this encounter Care Teams Fullerette Relationship Specialty Start Date End Date Momo Forbes PCP - General Family Practice 01/02/14 [facility] [address] [place] [address] documented as of this encounter
--- OUTSIDE RECORDS SUMMARY | 2022-03-30 18:44 | XMS_ITS | Encounter Summary ---
:1950 Author Organization [place] Address [facility] [place] [address] Care Team Providers Name Role Phone Momo Forbes A Primary Care Provider Reason for Visit Reason Onset Date Comments Kidney Transplant 07/12/2019 Encounter Details Date Type Department Care Team Description 07/12/2019 Telephone [facility] Estefania Nguyen Transplant Transplant Clinic Amanda Fletcher RN [address] [place] [phone] Social History Tobacco Use Types [...] Telephone Encounter - Alana Calderon LPN - 07/12/2019 3:00 PM CST Call placed to patient. No answer. Voice message left reminder voice message left with instruction listed below. Order placed LANGUAGE INTERPRETER Telephone Encounter - Amanda Nguyen RN - 07/12/2019 12:23 PM SIGN LANGUAGE INTERPRETER Clinic appt 07/17 at 4:45 Plan: Called patient to remind him of appt date/time. Asked that he complete labs prior to appt. POULTRY FIELD SERVICE TECHNICIAN task: Please send one time lab order to complete all tx labs within the next week. LANGUAGE INTERPRETER documented in this encounter Plan of Treatment Not on filedocumented as of this encounter Visit Diagnoses Not on filedocumented in this encounter Care Teams Youth Manager Relationship Specialty Start Date End Date Momo Forbes PCP - General Family Practice 01/02/14 [facility] [address] [place] [address] documented as of this encounter
--- OUTSIDE RECORDS SUMMARY | 2022-03-30 18:44 | XMS_ITS | Encounter Summary ---
:1950 Author Organization [place] Address [address] [place] [address] Care Team Providers Name Role Phone Forbes, Ton Primary Care Provider Reason for Visit Reason Onset Date Comments Transplant 11/07/2017 Encounter Details Date Type Department Care Team Description 11/07/2017 Telephone [facility] Transplant Nazia Jacobson, Transplant Clinic RN [address] [phone] Social History Tobacco Use Types Packs/Day [...] Telephone Encounter - Alana Calderon LPN - 11/08/2017 10:29 AM CDT Call returned to patient: Patient confirms current dose however trough level was inadequate. Patientverbalize understanding to repeat level this week. Order sent Telephone Encounter - Alana Calderon LPN - 11/07/2017 2:48 PM CDT Call placed to patient: No answer. Detailed voice message left with instructions listed below. Will try back Telephone Encounter - Nazia Jacobson RN - 11/07/2017 11:35 AM CDT ISSUE: Tac 10.7 (goal 4-6) PLAN: Verify tac dose and if level was a good 12 hour trough. Any new medications? Since previous levels within goal range, repeat tac level in 1 week. INK GRINDER TASK: Call patient with instructions per plan. Enter lab orders if needed. documented in this encounter Plan of Treatment Not on filedocumented as of this encounter Visit Diagnoses Not on filedocumented in this encounter Care Teams Fondant Cooker Relationship Specialty Start Date End Date Momo Forbes PCP - General Family Practice 01/02/[address] [address] documented as of this encounter
--- OUTSIDE RECORDS SUMMARY | 2022-03-30 18:44 | XMS_ITS | Encounter Summary ---
:1950 Author Organization [place] Address [address] [facility] [place] [address] Care Team Providers Name Role Phone Forbes, Momo He Primary Care Provider Reason for Visit Reason Onset Date Comments Transplant 10/18/2018 post transplant lucía sampson Encounter Details Date Type Department Care Team Description 10/18/2018 Telephone [facility] Nazia Jacobson Transplant (post Transplant Clinic BOGDAN Hicksbottle sorter scheduling) [address] [place] [phone] Social History Tobacco Use Types Packs/Day [...] this encounter Miscellaneous Notes Telephone Encounter - Maribel Plunkett - 10/26/2018 10:14 AM CST I attempted to contact pt again to give him the information for weight management and reached his VM. I left another detailed message with weight managements number. ATOR COMMAND SUPPORT SYSTEMS Telephone Encounter - Maribel Plunkett - 10/18/2018 9:32 AM CST I attempted to contact pt to give him the number for weight management, as they want to talk directly to the patient when scheduling initial appointment, and reached his VM. I LVM asking him to return my call. ATOR COMMAND SUPPORT SYSTEMS documented in this encounter Plan of Treatment Not on filedocumented as of this encounter Visit Diagnoses Not on filedocumented in this encounter Care Teams Back Tender Paper Machine Relationship Specialty Start Date End Date Momo Forbes PCP - General Family Practice 01/02/14 [facility] [address] [place] [address] documented as of this encounter
--- OUTSIDE RECORDS SUMMARY | 2022-03-30 18:44 | XMS_ITS | Encounter Summary ---
:1950 Author Organization [place] Address Counts include 234 beds at the [facility]0 [facility] [place] [address] Care Team Providers Name Role Phone Forbes, Ton Primary Care Provider Reason for Visit Reason Onset Date Comments Kidney Transplant 05/20/2019 Encounter Details Date Type Department Care Team Description 05/20/2019 Telephone [facility] Estefania Nguyen Transplant Transplant Clinic Amanda Fletcher RN [address] [place] [phone] Social History Tobacco Use Types Packs/Day [...] Telephone Encounter - Alana Calderon LPN - 05/22/2019 9:47 AM CDT Call placed to patient. Patient confirms current dose and accurate trough level. Patient denies any recent illness, diarrhea or medication changes. Patient v\u to repeat lab in May. Telephone Encounter - Cristy Chen LPN - 05/21/2019 12:32 PM CDT Left message for patient regarding: Tac 4.6 - however this is not charted as 12 hour trough. ?? Plan/AUTOMATIC RIVETING MACHINE OPERATOR task: ?? Please confirm timing of lab draw. If this was not a 12 hour level, please repeat labs in May and ensure 12 hour trough level with lab draw. Enter lab orders if needed Telephone Encounter - Amanda Nguyen RN - 05/20/2019 5:38 PM CDT Issue: Tac 4.6 - however this is not charted as 12 hour trough. Plan/AUTOMATIC RIVETING MACHINE OPERATOR task: Please confirm timing of lab draw. If this was not a 12 hour level, please repeat labs in May and ensure 12 hour trough level with lab draw. Enter lab orders if needed. documented in this encounter Plan of Treatment Not on filedocumented as of this encounter Visit Diagnoses Not on filedocumented in this encounter Care Teams Insurance Office Supervisor Relationship Specialty Start Date End Date Momo Forbes PCP - General Family Practice 01/02/14 [facility] [address] [place] [address] documented as of this encounter
--- OUTSIDE RECORDS SUMMARY | 2022-03-30 18:44 | XMS_ITS | Encounter Summary ---
:1950 Author Organization [place] Address [facility] [place] [address] Care Team Providers Name Role Phone Momo Forbes Primary Care Provider Reason for Visit Reason Onset Date Comments Refill Request 12/22/2018 prograf, mycophenola te (PT IS OUT OF MEDS) Encounter Details Date Type Department Care Team Description 12/22/2018 Refill [facility] Joseph Quintana R alenest (prograf, Transplant Clinic MD Herminio mycophenolate (PT IS OUT [address] [facility] [address] [facility] OF MEDS)) [facility] [address] [facility] 0[address] [phone] [place], [place] [phone] [facility] [phone] (Wo rk) Social History Tobacco Use Types [...] transplant documented in this encounter Care Teams Appeals Referee Relationship Specialty Start Date End Date Momo Forbes PCP - General Family Practice 01/02/14 [facility] [address] [place] [address] documented as of this encounter
--- OUTSIDE RECORDS SUMMARY | 2022-03-30 18:44 | XMS_ITS | Encounter Summary ---
:1950 Author Organization [place] Address [facility] [place] [address] Care Team Providers Name Role Phone Momo Forbes Primary Care Provider Joseph Quintana MD Unavailable Encounter Details Date Type Department Care Team Description 09/04/2018 External Order Results [facility] Nurse, [facility] Trans[facility] [address] [place] [address] Social History Tobacco Use Types [...] Comments Diagnosis CBC WITH PLATELETS & Routine 09/04/2018 2:50 PM R esults for this DIFFERENTIAL DOCK OPERATIONS SUPERVISOR procedure are i n the results section. BASIC METABOLIC PANEL Routine 09/04/2018 2:50 PM Results for this DOCK OPERATIONS SUPERVISOR procedure are i n the results section. PROTEIN RANDOM URINE Routine 09/04/2018 2:49 PM R esults for this DOCK OPERATIONS SUPERVISOR procedure are i n the results section. documented in this encounter Results (ABNORMAL) CBC with platelets differential (09/04/2018 2:50 PM DOCK OPERATIONS SUPERVISOR) [facility] gist Method Time Signature WBC Count 3.8 (L) 4.5 - 11.0 LABDE SCAN (External) thou/cu mm RBC Count 5.49 4.30 - LABDE SCAN (External) 5.90 mil/cu mm Hemoglobin 15.9 13.5 - LABDE SCAN (External) 17.5 g/dL Hematocrit 47.2 37.0 - LABDE SCAN (External) 53.0 % MCV (External) 86 80 - 100 LABDE SCAN fL MCH (External) 29.0 26.0 - LABDE SCAN 34.0 pg MCHC (External) 33.7 32.0 - LABDE SCAN 36.0 g/dL RDW (External) 14.0 11.5 - LABDE SCAN 15.5 % Platelet Count 78 (L) 140 - 440 LABDE SCAN (External) thou/cu mm % Neutrophils 57.8 % LABDE SCAN (External) % Lymphocytes 25.8 % LABDE SCAN (External) % Monocytes 15.1 % LABDE SCAN (External) % Eosinophils 1.0 % LABDE SCAN (External) % Basophils 0.3 % LABDE SCAN (External) % Immature 0.0 % LABDE SCAN Granulocytes (External) Absolute 2.2 1.7 - 7.0 LABDE SCAN Neutrophils thou/cu mm (External) Absolute 1.0 0.9 - 2.9 LABDE SCAN Lymphocytes thou/cu mm (External) Absolute 0.6 <0.9 LABDE SCAN Monocytes thou/cu mm (External) Absolute 0.0 <0.5 LABDE SCAN Eosinophils thou/cu mm (External) Absolute 0.0 <0.3 LABDE SCAN Basophils thou/cu mm (External) Absolute Immature 0.0 <0.3 LABDE SCAN Granulocytes thou/cu mm (External) Specimen (Source) Anatomical Collection Method Collection Time Re ceived Time Location / / Volume Laterality Blood specimen 09/04/2018 2:50 PM (specimen) DOCK OPERATIONS SUPERVISOR Narrative JESSICA THIBODEAUX - 09/06/2018 9:13 AM DOCK OPERATIONS SUPERVISOR Verified by Cassie Florian on 09/06/2018. Patient Reported LAB - BLOOD ORDERABLES Performing Organization Address City/State/ZIP Code Phon e Number [place] [facility] LABDE SCAN (ABNORMAL) Basic metabolic panel (09/04/2018 2:50 PM DOCK OPERATIONS SUPERVISOR) Analysis Performed At Patho logist Time Signature Sodium 136 135 - 145 LABDE SCAN (External) mmol/L Potassium 4.3 3.5 - 5.0 LABDE SCAN (External) mmol/L Chloride 101 98 - 110 LABDE SCAN (External) mmol/L (External) CO2 (External) 26 21 - 31 LABDE SCAN mmol/L Anion Gap 9 5 - 18 LABDE SCAN (External) Glucose 334 (H) 65 - 100 LABDE SCAN (External) mg/dL Calcium 9.9 8.5 - 10.5 LABDE SCAN (External) mg/dL Urea Nitrogen 16 8 - 25 LABDE SCAN (External) mg/dL Creatinine 1.69 (H) 0.72 - LABDE SCAN (External) 1.25 mg/dL BUN/Creatinine 9 (L) 10 - 20 LABDE SCAN Ratio (External) GFR Estimated 49 (L) >60 LABDE SCAN (if ml/min/1.7 Belizean) 3m2 (External) GFR Estimated 41 (L) >60 LABDE SCAN (External) ml/min/1.7 3m2 Specimen (Source) Anatomical Collection Method Collection Time Re ceived Time Location / / Volume Laterality Blood specimen 09/04/2018 2:50 PM (specimen) DOCK OPERATIONS SUPERVISOR Narrative JESSICA PFT - 09/06/2018 9:13 AM DOCK OPERATIONS SUPERVISOR Verified by Cassie Florian on 09/06/2018. Patient Reported LAB - BLOOD ORDERABLES Performing Organization Address City/State/ZIP Code Phon e Number [place] [facility] LABDE SCAN (ABNORMAL) Protein random urine with Creat Ratio (09/04/2018 2:49 PM DOCK OPERATIONS SUPERVISOR) P athologist Signature Protein Random 72 (H) 1 - 14 LABDE SCAN Urine mg/dL (External) Creatinine 104.0 63.0 - LABDE SCAN Urine mg/dL 166.0 (External) mg/dL Protein Total 0.7 (H) <0.2 LABDE SCAN Ur per Cr (External) Specimen (Source) Anatomical Collection Method Collection Time Re ceived Time Location / / Volume Laterality Urine specimen 09/04/2018 2:49 PM (specimen) DOCK OPERATIONS SUPERVISOR Narrative MARLENEE PFT - 09/06/2018 9:13 AM DOCK OPERATIONS SUPERVISOR Verified by Cassie Florian on 09/06/2018. Patient Reported LAB - URINE ORDERABLES Performing Organization Address City/State/ZIP Code Phon e Number [place] [facility] LABDE SCAN documented in this encounter Visit Diagnoses Not on filedocumented in this encounter Care Teams Air Motor Repairer Relationship Specialty Start Date End Date Momo Forbes PCP - General Family Practice 01/02/14 [facility] [address] [place] [address] Joseph Quintana, Assigned Nephrology 03/29/21 MD Provider [address] [facility] 353 [facility] [address] [place] [address] documented as of this encounter
--- OUTSIDE RECORDS SUMMARY | 2022-03-30 18:44 | XMS_ITS | Encounter Summary ---
:1950 Author Organization [place] Address [address] [place] [address]. [place] [address] Care Team Providers Name Role Phone Momo Forbes Primary Care Provider Encounter Details Date Type Department Care Team Description 09/25/2019 Medical Correspondence [facility] Scan, PATIENT BLOOD Health Info Mgmt Non-Provider GLUCOSE SIVAKUMAR ALLAN Srvcs [address] [place] [address] Social History Tobacco Use Types Packs/Day [...] on filedocumented in this encounter Care Teams Scarifier Operator Relationship Specialty Start Date End Date Momo Forbes PCP - General Family Practice 01/02/14 [facility] [address] [place] [address] documented as of this encounter
--- OUTSIDE RECORDS SUMMARY | 2022-03-30 18:44 | XMS_ITS | Encounter Summary ---
:1950 Author Organization [place] Address [address] [place] [address] Care Team Providers Name Role Phone Momo Forbes Primary Care Provider Encounter Details Date Type Department Care Team Description 05/16/2019 Orders Only [facility] Loy Morales Aft ercare following organ transplant; [facility] Kidney replaced by transplant; Laboratory [address] [facility] Encounter for long-term curr ent use of medication [address] [place] [address] [phone] (Wo rk) Social History Tobacco Use Types [...] Associated Comments Diagnosis TACROLIMUS BY TANDEM Routine 05/16/2019 3:43 PM Aftercare foll owing Results for this MASS SPECTROMETRY CDT organ transpla nt procedure are in Kidney replaced by the resul ts transplant section. Encounter for long-term current use of medication documented in this encounter Results (ABNORMAL) Tacrolimus level (05/16/2019 3:43 PM CDT) [facility] gist Method Time Signature Tacrolimus Last 05/1605/18/2019 [facility] Dose 1230AM 11:28 AM CDT [facility] Tacrolimus 4.6 (L) 5.0 - 05/18/2019 [facility] 15.0 ug/L 4:11 PM CDT [facility] Comment: Tacrolimus Reference Range Kidney Transplant Pediatric [...] its performa nce characteristics determined by the [facility], ??Special Chemistry Laboratory. It has not been cleared or approved by the FDA. The laboratory is regulated under CLIA as qualified to perform high-comple xity testing. This test is used for clinical purposes. It should not be rega rded as investigational or for research. Specimen Anatomical Collection Method Collection Time Receive d Time (Source) Location / / Volume Laterality Blood specimen 05/16/2019 3:43 PM 019 (specimen) CDT 11:27 AM CDT Joseph Quintana MD LAB - BLOOD ORDERABLES Performing Organization Address City/State/ZIP Code Phon e Number [facility] [address] documented in this encounter Visit Diagnoses Diagnosis Aftercare following organ transplant Kidney replaced by transplant Encounter for long-term current use of m edication documented in this encounter Care Teams Groundskeeping Yardman Relationship Specialty Start Date End Date Momo Forbes PCP - General Family Practice 01/02/14 [facility] [address] [place] [address] documented as of this encounter
--- OUTSIDE RECORDS SUMMARY | 2022-03-30 18:44 | XMS_ITS | Encounter Summary ---
:1950 Author Organization [place] Address [address] [place] [address]. [place] [address] Care Team Providers Name Role Phone Momo Forbes Primary Care Provider Encounter Details Date Type Department Care Team Description 10/17/2018 Travel Social History Tobacco Use Types Packs/Day [...] on filedocumented in this encounter Care Teams Diver'S Tender Relationship Specialty Start Date End Date Momo Forbes PCP - General Family Practice 01/02/14 [facility] [address] [place] [address] documented as of this encounter
--- OUTSIDE RECORDS SUMMARY | 2022-03-30 18:44 | XMS_ITS | Encounter Summary ---
:1950 Author Organization [place] Address [address] [facility] [place] [address] Care Team Providers Name Role Phone Momo Forbes A Primary Care Provider Reason for Visit Reason Onset Date Comments Refill Request 12/19/2017 Encounter Details Date Type Department Care Team Description 12/19/[address] [facility] Joseph Quintana MD Refill Request Transplant Clinic [address] [place] [address] [phone] [place] [address] (Wo rk) Social History Tobacco [...] this encounter Miscellaneous Notes Telephone Encounter - Janelle Flowers - 12/19/2017 10:07 AM CDT Drug Name: prograf 1mg Last Fill Date: 11/14/17 Quantity: 60 Janelle Flowers [facility] [phone] documented in this encounter Plan of Treatment Not on filedocumented as of this encounter Visit Diagnoses Diagnosis Kidney transplanted Kidney replaced by transplant documented in this encounter Care Teams Judicial Administrative Assistant Relationship Specialty Start Date End Date Momo Forbes PCP - General Family Practice 01/02/14 [facility] [address] [place] [address] documented as of this encounter
--- OUTSIDE RECORDS SUMMARY | 2022-03-30 18:45 | XMS_ITS | Encounter Summary ---
:1950 Author Organization [place] Address [address] [place] [address]. [place] [address] Care Team Providers Name Role Phone Momo Forbes Primary Care Provider Reason for Visit Reason Onset Date Comments Refill Request 08/31/2017 mycophenolate Encounter Details Date Type Department Care Team Description 08/31/2017 Refill [facility] Mariano, Joseph Refill R equest Transplant Clinic MD Herminio (mycophenolate) [address] [place] [phone] [place] [address] (Wo rk) Social History Tobacco [...] transplant documented in this encounter Care Teams Scoop Machine Operator Relationship Specialty Start Date End Date Momo Forbes PCP - General Family Practice 01/02/14 [facility] [address] [place], [place] [phone] documented as of this encounter
--- OUTSIDE RECORDS SUMMARY | 2022-03-30 18:45 | XMS_ITS | Encounter Summary ---
:1950 Author Organization [place] Address [address] [place] [address]. [place] [address] Care Team Providers Name Role Phone Momo Forbes Primary Care Provider Reason for Visit Reason Onset Date Comments Transplant Pharmacy Medication Review 01/26/2017 Encounter Details Date Type Department Care Team Description 01/26/2017 Telephone [facility] Janes Rodriguez, Transplant Pharmacy [address] [facility] Medication Review [facility] [place] [phone] Social History Tobacco Use Types Packs/Day Years [...] on filedocumented in this encounter Care Teams Resume Writer Relationship Specialty Start Date End Date Momo Forbes PCP - General Family Practice 01/02/14 [facility] [address] [place] [address] documented as of this encounter
--- OUTSIDE RECORDS SUMMARY | 2022-03-30 18:45 | XMS_ITS | Encounter Summary ---
:1950 Author Organization [place] Address [address] [facility] [place] [address] Care Team Providers Name Role Phone Momo Forbes Primary Care Provider Reason for Visit Reason Onset Date Comments Pre Visit Planning - Unable To Reach 10/14/2016 Encounter Details Date Type Department Care Team Description 10/14/2016 Telephone [facility] Anita Joshi MD Pre Visit Planning - Nephrology Clinic [address] [place] [address] [place] [facility] To Reach [address] [address] [phone] Social History Tobacco Use Types Packs/Day Years [...] this encounter Miscellaneous Notes Telephone Encounter - Monroe Zurita CMA - 10/14/2016 10:56 AM CST Ezekiel, this is office from Clinic [facility] at the [facility]. We are calling to remind you of your upcoming Nephrology appointment on 10/25/16 at 440pm. Please arrive about 1 hours prior to your appointment time for labs. Also, please bring an updated medication list or your labeled medication bottles with you to your appointment. If you have any questions or would like to cancel or reschedule your appointment, please call us at [phone]. You are welcome to have your labs done up to a week before your appointment at any [place] or [facility] facility. If you have your labs completed before your appointment, please still come 30 minutes early for check-in MONROE ZURITA CMA GER PHOTOGRAPHY documented in this encounter Plan of Treatment Not on filedocumented as of this encounter Visit Diagnoses Not on filedocumented in this encounter Care Teams Smoke Inspector Relationship Specialty Start Date End Date Momo Forbes PCP - General Family Practice 01/02/14 [facility] [address] [place] [address] documented as of this encounter
--- OUTSIDE RECORDS SUMMARY | 2022-03-30 18:45 | XMS_ITS | Encounter Summary ---
:1950 Author Organization [place] Address [address] [place] [address]. [place] [address] Care Team Providers Name Role Phone Momo Forbes Primary Care Provider Reason for Visit Reason Onset Date Comments Transplant 04/20/2016 refill Encounter Details Date Type Department Care Team Description 04/20/2016 Refill [facility] Joseph Quintana, Transplant (refill) Transplant Clinic [address] [place] [phone] [place] [address] (Wo rk) Social History Tobacco [...] transplant documented in this encounter Care Teams Stitching Machine Feeder Or Offbearer Relationship Specialty Start Date End Date Momo Forbes PCP - General Family Practice 01/02/14 [facility] [address] [place] [address] documented as of this encounter
--- OUTSIDE RECORDS SUMMARY | 2022-03-30 18:45 | XMS_ITS | Encounter Summary ---
:1950 Author Organization [place] Address [address] [place] [address] Care Team Providers Name Role Phone Momo Forbes Primary Care Provider Encounter Details Date Type Department Care Team Description 11/03/2017 Orders Only [facility] Loy Morales Kid ney replaced by [facility] MD transplant Laboratory [address] [facility] 500 [facility] [address] [place] [phone] (Wo rk) Social History Tobacco Use Types [...] Associated Comments Diagnosis TACROLIMUS BY TANDEM Routine 11/03/2017 11:30 Kidney replaced by Results for this MASS SPECTROMETRY AM CDT transplant procedure are in the results section. documented in this encounter Results Tacrolimus level (11/03/2017 11:30 AM CDT) [facility] Method Time Signature Tacrolimus Not Provided 11/05/2017 [facility] Last Dose 2:20 PM CDT [facility] Tacrolimus 10.7 5.0 - 11/06/2017 [facility] 15.0 ug/L 1:00 PM CDT [facility] Comment: Tacrolimus Reference Range Kidney Transplant Pediatric [...] its performa nce characteristics determined by the [facility], ??Special Chemistry Laboratory. It has not been cleared or approved by the FDA. The laboratory is regulated under CLIA as qualified to perform high-comple xity testing. This test is used for clinical purposes. It should not be rega rded as investigational or for research. Specimen Anatomical Collection Method Collection Time Receive d Time (Source) Location / / Volume Laterality Blood specimen 11/03/2017 11:30 201 8 2:20 (specimen) AM CDT PM CDT Orlando Richey MD LAB - BLOOD ORDERABLES Performing Organization Address City/State/ZIP Code Phon e Number [phone] [place] [address] documented in this encounter Visit Diagnoses Diagnosis Kidney replaced by transplant documented in this encounter Care Teams Chemical Analyst Relationship Specialty Start Date End Date Momo Forbes PCP - General Family Practice 01/02/14 [facility] [address] [place] [address] documented as of this encounter
--- OUTSIDE RECORDS SUMMARY | 2022-03-30 18:45 | XMS_ITS | Encounter Summary ---
:1950 Author Organization [place] Address [address] [place] [address] Care Team Providers Name Role Phone Momo Forbes A Primary Care Provider Encounter Details Date Type Department Care Team Description 07/22/2016 Orders Only [facility] Mariano, Joseph Perdomo isael, [facility] [place] [address] [facility] [address] [place], [place] [phone] [address] [address] [place] [address] (Wo rk) Social History Tobacco [...] Associated Comments Diagnosis TACROLIMUS BY TANDEM Routine 08/09/2016 12:15 Res ults for this MASS SPECTROMETRY PM CEMENT TRUCK LOADER procedure are in the results section. documented in this encounter Results (ABNORMAL) Tacrolimus level (08/09/2016 12:15 PM CEMENT TRUCK LOADER) [facility] Method Time Signature Tacrolimus Last 08/08/[address] Tacrolimus 3.8 (L) 5.0 - [facility] Level 15.0 ug/L [facility] Comment: Tacrolimus Reference Range Kidney Transplant Pediatric ?ug/L ?? 0-3 months post transplant ?? 10-12 ?? 3-6 months post transplant ?? 8-10 ?? 6-12 months post transplant ??6-8 ?? >12 months post transplant ?? 4-7 Adult ?? 0-6 months post transplant ?? 8-10 ?? 6-12 months post transplant ??6-8 ?? >12 months post transplant ?? 4-6 ?? >5 years post transplant ? 3-5 Heart Transplant Pediatric ?? 0-12 months post transplant ??10-15 ?? >12 months post transplant ?? 5-10 Adult ?? 0-3 months post transplant ?? 10-15 ?? 3-6 months post transplant ?? 8-12 ?? 6-12 months post transplant ??6-12 ?? >12 months post transplant ?? 6-10 Lung Transplant ?? 0-12 months post transplant ??10-15 ?? >12 months post transplant ?? 8-12 Liver Transplant Pediatric ?? 0-3 months post transplant ?? 10-15 ?? 3-6 months post transplant ?? 8-10 ?? >6 months post transplant ?6-8 Adult ?? 0-3 months post transplant ?? 10-12 ?? 3-6 months post transplant ?? 8-10 ?? >6 months post transplant ?6-8 Pancreas Transplant ?? 0-6 months post transplant ?? 8-10 ?? >6 months post transplant ?5-8 This test was developed and its perform ance characteristics determined by the [facility], ??Special Chemistry Laboratory. It has not been cleared or approved by the FDA . The laboratory is regulated under CLIA as qualified to perform high-complexity testing. This test is used for clinical purposes. It should not be regarded as investigational or for research. Specimen Anatomical Collection Method Collection Time Receive d Time (Source) Location / / Volume Laterality 08/09/2016 12:15 08/11/2016 PM CEMENT TRUCK LOADER 10:15 AM CEMENT TRUCK LOADER Deysi Alicea MD LAB - BLOOD ORDERABLES Performing Organization Address City/State/ZIP Code Phon e Number [facility] [address] documented in this encounter Visit Diagnoses Not on filedocumented in this encounter Care Teams Photo Studio Assistant Relationship Specialty Start Date End Date Momo Forbes PCP - General Family Practice 01/02/14 [facility] [address] [place] [address] documented as of this encounter
--- OUTSIDE RECORDS SUMMARY | 2022-03-30 18:45 | XMS_ITS | Encounter Summary ---
:1950 Author Organization [place] Address [address] [place] [address] Care Team Providers Name Role Phone ForbesMomo santiago A Primary Care Provider Encounter Details Date Type Department Care Team Description 05/30/2017 Hospital Encounter [facility] Orlando Richey, [facility] [address] [address] [phone] (Wo rk) Social History Tobacco Use Types [...] on file documented as of this encounter Medications at Time of Discharge Medication Sig Dispensed Refills Start Date End Date aspirin 81 MG Take 1 tablet (81 180 tablet 0 04/09/2014 tabletIndications: DM mg) by mouth daily (diabetes mellitus), type 2 (H) Calcium Take 1 tablet by 0 Carbonate-Vitamin D mouth daily (dose (CALCIUM + D PO) unknown) citalopram (CELEXA) 20 Take 1 tablet (20 90 tablet 3 2016 MG tabletIndications: mg) by mouth daily Reactive depression HumaLOG VIAL 100 Inject 20-40 Units 0 UNITS/ML SOLN Subcutaneous 3 times daily (before meals) Patient reported his dose 10-12 unit 2-3 times daily before meals LANTUS VIAL 100 Inject 50 Units 0 UNITS/ML SC SOLN Subcutaneous every evening rosuvastatin (CRESTOR) Take 1 tablet (10 90 tablet 3 2014 10 MG mg) by mouth daily tabletIndications: DM (diabetes mellitus), type 2 (H), Other and unspecified hyperlipidemia amLODIPine (NORVASC) 10 Take 1 tablet (10 90 tablet 3 06/2410/09/2019 MG tabletIndications: mg) by mouth daily HTN (hypertension) furosemide (LASIX) 20 Take 1 tablet (20 90 tablet 4 017 11/10/2017 MG tabletIndications: mg) by mouth daily Renal hypertension, stage 1-4 or unspecified chronic kidney disease METOPROLOL TARTRATE PO Take 50 mg by mouth 0 10/09/2019 2 times daily mycophenolate (GENERIC Take 3 capsules (750 180 capsule 0 06/28/2017 EQUIVALENT) 250 MG mg) by mouth 2 times capsuleIndications: daily (generic okay) Kidney transplanted PROGRAF 0.5 MG HOLD (take as 60 capsule 11 12/30/2014 020 capsuleIndications: directed for dose -donor kidney changes) transplant recipient PROGRAF 1 MG PO Take 1 capsule (1 60 capsule 11 12/02/2016 CAPSULEIndications: mg) by mouth 2 times Kidney transplanted daily SERTRALINE HCL PO Take 100 mg by mouth 0 10/10/2017 daily sulfamethoxazole-trimet Take 1 tablet by 30 tablet 11 201510/10/2017 hoprim (BACTRIM,SEPTRA) mouth daily 400-80 MG per tabletIndications: Kidney transplanted documented as of this encounter Plan of Treatment Not on filedocumented as of this encounter Visit Diagnoses Not on filedocumented in this encounter Care Teams Driver Utility Worker Relationship Specialty Start Date End Date Momo Forbes PCP - General Family Practice 01/02/14 [facility] [address] [place] [address] documented as of this encounter
--- OUTSIDE RECORDS SUMMARY | 2022-03-30 18:45 | XMS_ITS | Encounter Summary ---
:1950 Author Organization [place] Address [address] [place] [address] Care Team Providers Name Role Phone Forbes, Momo He Primary Care Provider Reason for Visit Reason Comments RECHECK Kidney tx follow up Encounter Details Date Type Department Care Team Description 10/10/2017 Office Visit [facility] Shiva Presley Sta tus post kidney transplant (Primary Dx); Nephrology Clinic Immunosuppression (H); [facility] Type 2 diabetes mellitus wit h stage 3 chronic kidney disease, with long-term current use of insulin (H); [address] [place] [address] Benign essential hypertension; [address] Hyperlipidemia, unspecified hyperlipidemia type; [place], [place] RANJAN [address] Skin cancer screening [phone] [place] [address] (Wo rk) Social History Tobacco Use Types [...] Sign Reading Time Taken Comments Blood Pressure 153/74 10/10/2017 2:25 PM TERMINAL SYSTEM OPERATOR Pulse 55 10/10/2017 2:25 PM TERMINAL SYSTEM OPERATOR Temperature 36.7 ??C (98.1 ??F) 10/10/2017 2:25 PM TERMINAL SYSTEM OPERATOR Respiratory Rate - - Oxygen Saturation 98% 10/10/2017 2:25 PM TERMINAL SYSTEM OPERATOR Inhaled Oxygen Concentration - - Weight 135.4 kg (298 lb 6.4 oz) 10/10/2017 2:25 PM TERMINAL SYSTEM OPERATOR Height 182.9 cm (6') 10/10/2017 2:25 PM TERMINAL SYSTEM OPERATOR Body Mass Index 40.47 10/10/2017 2:25 PM TERMINAL SYSTEM OPERATOR documented in this encounter Progress Notes Shiva Presley MD - 10/10/2017 2:45 PM CST Assessment and Plan: 1. 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 He is currently on immunosuppression with: Tac 1 mg po bid - last 4.4 ng/ ml with goal 4-6. Mmf 750 mg po bid Last creatinine was 1.53 mg / dl and stable. BK: negative last in 12/2014 DSA: negative last 01/28/15 Follow-up in 1 year. 2. Immunosuppression: see above. 3. HTN: on metoprolol / amlodipine. bp elevated today. We discussed his blood pressure today as well. I would recommend switching from metoprolol to carvedilol. Starting dose of carvedilol 12.5 mg p.o.twice daily. This can be increased to 25 mg p.o. twice daily if his heart rate is still above 50. Goal blood pressure for the patient is at least less than 140/90. Recent studies in non-transport patients would recommend 100 130/60-80 would be ideal. 4. HLD: on crestor. 5. DMII: sugar control is poor. Goal a1c is 7-7.5 g%. Last >14%. On glargine / humalog. I discussed with the patient his blood sugar control. I recommended glargine 30 units subcu twice daily. His Humalog can be given 20 units with meals in addition to a sliding scale for correction. He will speak with his local provider Dr. Forbes for continued monitoring his blood sugar. Goal fasting sugars is90-1 30 mg/dL. All sugar should be less than 200. He can increase his Lantus by 2 units every 2-3 days until his fasting sugars are at goal. 6. Flu shot received. 7. Skin cancer screening: I am referring to dermatology today for monitoring for skin cancer screening. I also informed him of good sun hygiene. Assessment and plan was discussed with patient and he voiced his understanding and agreement. Reason for Visit: Mr. Guthrie is here for routine follow up and kidney transplant. HPI: Diego Guthrie is a 67 year old male with ESKD from Type 2 Diabetes and is status post DDKT on 02/02/14. Transplant Hx: Tx: DDKT Date: 02/02/14 Present Maintenance IS: Tacrolimus and Mycophenolate mofetil Baseline Creatinine: 1.5 mg / dl Recent DSA: not checked Biopsy: No The patient is a 67-year-old male who is status post kidney transplant in February 022013. He is currently on immunosuppression with tacrolimus and CellCept. His most recent creatinine is 1.5 mg/dL andstable. He is on 1 mg p.o. twice daily tacrolimus with his most recent trough on July 15 at 4.4 ng/mL. His goal is 4-6 ng/mL. He is also on CellCept 750 mg p.o. twice daily. We discussed his current blood sugar control. His most recent A1c is greater than 14 g percent. He is working with his primary care doctor Dr. Forbes for control. I recommended splitting his Lantus to 30 units in the morning 30 units in the evening and continuing on with 20 units with his meals in addition to a sliding scale. His goal fasting sugars is 90-1 30 mg/dL. All sugar should be less than 200. He can increase his long-acting insulin by 2 units every 2-3 days until his fasting sugars are appropriately controlled. He also should work on diet as well as weight loss as able. Specifically otherwise he denies any chest pain or shortness of breath. No nausea or vomiting. No problems with diarrhea. In fact, the patient is having problems with constipation. We discussed starting Metamucil for fiber supplementation. Lastly, the patient was informed that he is at increased risk of developing skin cancers. I recommended good sun hygiene is well as a referral to his lime kiln and recausticizing operator for monitoring for any skin cancers. The patient has already received received his influenza vaccination this year. Home BP: at goal. ROS: A comprehensive review of systems was obtained and negative, except as noted in the HPI or PMH. Active Medical Problems: Patient Active Problem List Diagnosis ??? Hyperlipidemia [...] kidney transplant ??? Kidney replaced by transplant Personal Hx: Social History Social History ??? Marital status: Single Spouse name: N/A ??? Number of children: N/A ??? 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 Smoking status: Former Smoker Years: 5.00 Types: Cigars Quit date: 08/22/2006 ??? Smokeless tobacco: Never Used ??? Alcohol use 0.0 oz/week 0 drink(s) per week Comment: occasional drink. ??? Drug use: No ??? Sexual activity: Not on file Other Topics Concern ??? Blood Transfusions No ??? Seat Belt Yes Social History Narrative Allergies: Allergies Allergen Reactions ??? Lisinopril Medications: Prior to Admission medications Medication Sig Start Date End Date Taking? Authorizing Provider mycophenolate (GENERIC EQUIVALENT) 250 MG capsule Take 3 capsules (750 mg) by mouth 2 times daily (generic okay) 08/31/17 Joseph Quintana MD PROGRAF 1 MG PO CAPSULE Take 1 capsule (1 mg) by mouth 2 times daily 12/02/16 Joseph Quintana MD METOPROLOL TARTRATE PO Take 50 mg by mouth 2 times daily Reported, Patient SERTRALINE HCL PO Take 100 mg by mouth daily Reported, Patient furosemide (LASIX) 20 MG tablet Take 1 tablet (20 mg) by mouth daily 10/25/16 Chucho Joshi MD citalopram (CELEXA) 20 MG tablet Take 1 tablet (20 mg) by mouth daily 09/28/16 Chucho Joshi MD sulfamethoxazole-trimethoprim (BACTRIM,SEPTRA) 400-80 MG per tablet Take 1 tablet by mouth daily 04/20/16 Joseph Quintana MD amLODIPine (NORVASC) 10 MG tablet Take 1 tablet (10 mg) by mouth daily Patient taking differently: Take 5 mg by mouth daily 06/24/15 Joseph Rodriguez MD rosuvastatin (CRESTOR) 10 MG tablet Take 1 tablet (10 mg) by mouth daily 04/22/15 Joseph Rodriguez MD PROGRAF 0.5 MG capsule HOLD (take as directed for dose changes) Patient not taking: Reported on 10/25/2016 12/30/14 Deysi Alicea MD aspirin 81 MG tablet Take 1 tablet (81 mg) by mouth daily 04/09/14 Joseph Rodriguez MD Calcium Carbonate-Vitamin D (CALCIUM + D PO) Take 1 tablet by mouth daily (dose unknown) Reported, Patient LANTUS VIAL 100 UNITS/ML SC SOLN Inject 15 Units Subcutaneous every evening Reported, Patient HumaLOG VIAL 100 UNITS/ML SOLN Inject 3-13 Units Subcutaneous 3 times daily (before meals) Patient reported his dose 10-12 unit 2-3 times daily before meals Reported, Patient Vitals: BP 153/74 Pulse 55 Temp 98.1 ??F (36.7 ??C) (Oral) Ht 1.829 m (6') Wt 135.4 kg (298 lb 6.4 oz) SpO2 98% BMI 40.47 kg/m2 Exam: GENERAL APPEARANCE: alert and no distress HENT: [...] joints, no muscle tenderness SKIN: no rash Results: Labs reviewed with patient. INAL SYSTEM OPERATOR documented in this encounter Nursing Notes Monroe Zurita CMA - 10/10/2017 2:45 PM CST Chief Complaint Patient presents with ??? RECHECK Kidney tx follow up Initial BP 153/74 Pulse 55 Temp 98.1 ??F (36.7 ??C) (Oral) Ht 1.829 m (6') Wt 135.4 kg (298 lb 6.4 oz) SpO2 98% BMI 40.47 kg/m2 Estimated body mass index is 40.47 kg/(m^2) as calculated from the following: Height as of this encounter: 1.829 m (6'). Weight as of this encounter: 135.4 kg (298 lb 6.4 oz). Medication Reconciliation: complete MONROE ZURITA CMA . INAL SYSTEM OPERATOR documented in this encounter Plan of Treatment Not on filedocumented as of this encounter Visit Diagnoses Diagnosis Status post kidney transplant - Primary Immunosuppression (H) Unspecified disorder of immune mechanism Type 2 diabetes mellitus with stage 3 ch ronic kidney disease, with long-term current use of insulin (H) Benign essential hypertension Essential hypertension, benign Hyperlipidemia, unspecified hyperlipidem ia type Skin cancer screening Screening for malignant neoplasm of the skin documented in this encounter Care Teams Hide And Skin Fleshing Machine Operator Relationship Specialty Start Date End Date Momo Forbes PCP - General Family Practice 01/02/14 [facility] [address] [place] [address] documented as of this encounter
--- OUTSIDE RECORDS SUMMARY | 2022-03-30 18:45 | XMS_ITS | Encounter Summary ---
:1950 Author Organization [place] Address [address] [place] [address] Care Team Providers Name Role Phone ForbesMomo santiago A Primary Care Provider Reason for Visit Reason Onset Date Comments Transplant 09/12/2017 Encounter Details Date Type Department Care Team Description 09/12/2017 Telephone [facility] Transplant Nazia Jacobson, Transplant Clinic RN [address] [phone] Social History Tobacco Use Types Packs/Day [...] this encounter Miscellaneous Notes Telephone Encounter - Deepa Ordoñez - 09/12/2017 10:46 AM CST Left patient detailed message explaining glucose numbers have been elevated and he needs better control of these for renal care and need to know who is following the glucose numbers. Also explained monthly labs are needed, mailed copy of updated standing lab order and faxed to [facility] lab. TRICIAN WIRING Telephone Encounter - Nazia Jacobson RN - 09/12/2017 8:36 AM ELECTRICIAN WIRING ISSUE: Hyperglycemia (blood sugar 300-600s w/ last 2 blood draws) Overdue for transplant labs DYE MACHINE OPERATOR TASK: Call Diego Guthrie and ask him who is managing his diabetes? Does he have an adaptive physical education specialist? He needs to have better blood sugar control, elevated blood sugars can cause damage to his kidney. Remind him that he should be getting transplant labs done monthly. (3 years out from kidney transplant) Send updated lab letter. TRICIAN WIRING documented in this encounter Plan of Treatment Not on filedocumented as of this encounter Visit Diagnoses Not on filedocumented in this encounter Care Teams Tax Technician Relationship Specialty Start Date End Date Momo Forbes PCP - General Family Practice 01/02/14 [facility] [address] [place] [address] documented as of this encounter
--- OUTSIDE RECORDS SUMMARY | 2022-03-30 18:45 | XMS_ITS | Encounter Summary ---
:1950 Author Organization [place] Address [facility] [place] [address] Care Team Providers Name Role Phone Forbes, Ton Primary Care Provider Reason for Visit Reason Comments RECHECK 6 mo follow up,christiano cruz Encounter Details Date Type Department Care Team Description 04/20/2016 Office Visit [facility] Chucho Joshi, Renal hypertension, stage 1-4 or unspecified chronic kidney disease (Primary Dx); Nephrology Clinic Reactive depression; [address] Thrombocytopenia (H) [address] [facility] [address] [place] [phone] Social History Tobacco Use Types Packs/Day [...] Sign Reading Time Taken Comments Blood Pressure 137/69 04/20/2016 2:08 PM CDT Pulse 83 04/20/2016 2:08 PM CDT Temperature 37.2 ??C (98.9 ??F) 04/20/2016 2:08 PM CDT Respiratory Rate - - Oxygen Saturation 98% 04/20/2016 2:08 PM CDT Inhaled Oxygen Concentration - - Weight 139 kg (306 lb 6.4 oz) 04/20/2016 2:08 PM CDT Height - - Body Mass Index 41.55 09/02/2015 4:32 PM SCIENTIST/ENGINEER documented in this encounter Progress Notes Chucho Joshi MD - 04/20/2016 2:51 PM CDT CHIEF COMPLAINT: Followup for kidney transplantation. HISTORY OF PRESENT ILLNESS: Mr. 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 His postoperative course was complicated by slow graft function and new onset atrial fibrillation. He was initially on Coumadin, but that has been stopped. During today's visit, we discussed the following issues: 1. Allograft function. His serum creatinine continues to be stable at 1.53. He is currently on tacrolimus 1 mg b.i.d. in addition to CellCept 1000 mg b.i.d. His last tacrolimus level was 4.2. I asked him to reduce his CellCept to 750 mg b.i.d., as this constitutes our protocol. 2. Hypertension. His blood pressure is pretty well controlled. It was 137/69 with a heart rate of 83. He is currently on metoprolol 25 mg b.i.d. in addition to amlodipine 10 mg daily. Considering his diabetes and the possible contribution of beta berto to worsening glycemic control, I discontinued his metoprolol and started him on losartan 50 mg daily. 3. Low-grade thrombocytopenia. Interestingly, his platelets have been low since the time of his transplant. He has not had any bleeding episodes. More interesting is the fact that he has large platelets as evidenced by mean platelet volume that is at the upper limit of normal. 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 Certainly there are certain kidney diseases that are associated with giant platelets which are genetic in nature and would be very unlikely to be present in this hernandez. Nevertheless, I think obtaining a peripheral smear would be very instructive. One thing that should be added to his labs obviously is folic acid and vitamin B12. 4. Massive weight gain. We talked about exercise and healthier eating habits. He is currently on sertraline 50 mg daily which might be associated with weight gain. Therefore, I asked him to discontinueit and start citalopram 20 mg p.o. q. day. I told him that if his depression symptoms worsen, he should consider going back to his original regimen. 5. He has new onset multiple keratoses. I gave him a prescription for nicotinamide 500 mg p.o. b.i.d. He will return to clinic in 6 months. Twenty-five minutes were spent with him, over half of which were in counseling regarding long-term immunosuppression. documented in this encounter Nursing Notes Marcelina Sesay CMA - 04/20/2016 2:09 PM CDT Chief Complaint Patient presents with ??? RECHECK 6 mo follow up,christiano cruz Initial BP 137/69 mmHg Pulse 83 Temp(Src) 98.9 ??F (37.2 ??C) (Oral) Wt 138.982 kg (306 lb 6.4oz) SpO2 98% Estimated body mass index is 41.55 kg/(m^2) as calculated from the following: Height as of 09/02/15: 1.829 m (6' 0.01). Weight as of this encounter: 138.982 kg (306 lb 6.4 oz). BP completed using cuff size: regular documented in this encounter Plan of Treatment Not on filedocumented as of this encounter Results Folate RBC (10/25/2016 3:54 PM SCIENTIST/ENGINEER) athologist Signature HCT Within 46.0 % [address] Folate RBC 663 ng/mL [facility] Comment: Reference range: >=366 (Note) Performed by [email or web address], [address] [place] [address] [email or web address], Geoff Reed MD, Lab. Director Specimen Anatomical Collection Method Collection Time Receive d Time (Source) Location / / Volume Laterality Blood specimen 10/25/2016 3:54 PM 017 3:55 (specimen) SCIENTIST/ENGINEER PM SCIENTIST/ENGINEER Chucho Joshi MD LAB - BLOOD ORDERABLES Performing Organization Address City/State/[facility] Code Phon e Number [address] [address] [facility] [place][note 2] documented in this encounter Visit Diagnoses Diagnosis Renal hypertension, stage 1-4 or unspeci fied chronic kidney disease - Primary Reactive depression Dysthymic disorder Thrombocytopenia (H) Thrombocytopenia, unspecified documented in this encounter Care Teams Light Rail Transit Operator Relationship Specialty Start Date End Date Momo Forbes PCP - General Family Practice 01/02/[address] [address] documented as of this encounter
--- OUTSIDE RECORDS SUMMARY | 2022-03-30 18:45 | XMS_ITS | Encounter Summary ---
:1950 Author Organization [place] Address [address] [facility] [place] [address] Care Team Providers Name Role Phone ForbesMomo prakash A Primary Care Provider Reason for Visit Reason Onset Date Comments Appointment 10/05/2017 Encounter Details Date Type Department Care Team Description 10/05/2017 Telephone [facility] Shiva Presley MD Appointment Nephrology Clinic [facility] [place] [address] [phone] Social History Tobacco Use Types Packs/Day Years [...] Telephone Encounter - Romi Rodriguez RN - 10/05/2017 1:37 PM CST Spoke with patient for transplant follow up. States he's doing well, denied any symptoms or concernsahead of appointment. Romi Rodriguez RN MER AND BORER MACHINE OPERATOR documented in this encounter Plan of Treatment Not on filedocumented as of this encounter Visit Diagnoses Not on filedocumented in this encounter Care Teams Control Supervisor Relationship Specialty Start Date End Date Momo Forbes PCP - General Family Practice 01/02/14 [facility] [address] [place] [address] documented as of this encounter
--- OUTSIDE RECORDS SUMMARY | 2022-03-30 18:45 | XMS_ITS | Encounter Summary ---
:1950 Author Organization [place] Address [address] [facility] [place] [address] Care Team Providers Name Role Phone Momo Forbes Primary Care Provider Encounter Details Date Type Department Care Team Description 01/19/2017 Orders Only [facility] Loy Morales Aft ercare following organ transplant; [facility] Kidney replaced by transplant; Laboratory [address] [facility] Encounter for long-term curr ent use of medication [address] [place] [address] [phone] (Wo rk) Social History Tobacco Use Types [...] Associated Comments Diagnosis TACROLIMUS BY TANDEM Routine 01/19/2017 9:25 AM Aftercare foll owing Results for this MASS SPECTROMETRY CDT organ transpla nt procedure are in Kidney replaced by the resul ts transplant section. Encounter for long-term current use of medication documented in this encounter Results Tacrolimus level (01/19/2017 9:25 AM CDT) [facility] gist Method Time Signature Tacrolimus Last [address] [facility] Dose 01/19/17 [facility] Tacrolimus 6.5 5.0 - [facility] 15.0 ug/L [facility] Comment: Tacrolimus Reference Range Kidney Transplant Pediatric [...] its perform ance characteristics determined by the [facility], ??Special Chemistry Laboratory. It has not been cleared or approved by the FDA . The laboratory is regulated under CLIA as qualified to perform high-complexity testing. This test is used for clinical purposes. It should not be regarded as investigational or for research. Specimen Anatomical Collection Method Collection Time Receive d Time (Source) Location / / Volume Laterality Blood specimen 01/19/2017 9:25 AM 017 (specimen) CDT 10:32 AM CDT Chucho Joshi MD LAB - BLOOD ORDERABLES Performing Organization Address City/State/ZIP Code Phon e Number [id number] [place] [address] documented in this encounter Visit Diagnoses Diagnosis Aftercare following organ transplant Kidney replaced by transplant Encounter for long-term current use of m edication documented in this encounter Care Teams Cook Apprentice Relationship Specialty Start Date End Date Momo Forbes PCP - General Family Practice 01/02/[address] [address] documented as of this encounter
--- OUTSIDE RECORDS SUMMARY | 2022-03-30 18:45 | XMS_ITS | Encounter Summary ---
:1950 Author Organization [place] Address [address] [place] [address]. [place] [address] Care Team Providers Name Role Phone Momo Forbes Primary Care Provider Reason for Visit Reason Onset Date Comments Transplant 02/19/2016 refill Encounter Details Date Type Department Care Team Description 02/19/2016 Refill The Transplant Deysi Burns MD Transplant (refill) 2nd Floor, Clinic [id number] [place] [address] [place] [address] Social History Tobacco Use Types Packs/Day Years [...] transplant documented in this encounter Care Teams Counselor Marriage And Family Relationship Specialty Start Date End Date Momo Forbes PCP - General Family Practice 01/02/14 [facility] [address] [place], [place] [id number] documented as of this encounter
--- OUTSIDE RECORDS SUMMARY | 2022-03-30 18:45 | XMS_ITS | Encounter Summary ---
:1950 Author Organization [place] Address [address] [place] [address] Care Team Providers Name Role Phone Momo Forbes Primary Care Provider Encounter Details Date Type Department Care Team Description 05/31/2017 Orders Only [facility] Loy Morales Kid ney replaced by [facility] MD transplant Laboratory [address] [facility] 500 [facility] [address] [place] [phone] (Wo rk) Social History Tobacco Use Types [...] Associated Comments Diagnosis TACROLIMUS BY TANDEM Routine 05/30/2017 1:01 PM Kidney replace d by Results for this MASS SPECTROMETRY CDT transplant procedure are in the results section. documented in this encounter Results (ABNORMAL) Tacrolimus level (05/30/2017 1:01 PM CDT) [facility] Method Time Signature Tacrolimus Last 05/29/17 05/31/2017 [facility] Dose 1930 1:05 PM CDT [facility] Tacrolimus 3.0 (L) 5.0 - 05/31/2017 [facility] 15.0 ug/L 7:54 PM CDT [facility] Comment: Tacrolimus Reference Range Kidney Transplant [...] its performa nce characteristics determined by the [facility], ??Special Chemistry Laboratory. It has not been cleared or approved by the FDA. The laboratory is regulated under CLIA as qualified to perform high-comple xity testing. This test is used for clinical purposes. It should not be rega rded as investigational or for research. Specimen Anatomical Collection Method Collection Time Receive d Time (Source) Location / / Volume Laterality Blood specimen 05/30/2017 1:01 PM 017 1:04 (specimen) CDT PM CDT Orlando Richey MD LAB - BLOOD ORDERABLES Performing Organization Address City/State/ZIP Code Phon e Number [facility] [address] [place], [place] [phone] [place] [address] documented in this encounter Visit Diagnoses Diagnosis Kidney replaced by transplant documented in this encounter Care Teams Wholesale Representative Relationship Specialty Start Date End Date Momo Forbes PCP - General Family Practice 01/02/14 [facility] [address] [place] [address] documented as of this encounter
--- OUTSIDE RECORDS SUMMARY | 2022-03-30 18:45 | XMS_ITS | Encounter Summary ---
:1950 Author Organization [place] Address [facility] [place] [address] Care Team Providers Name Role Phone ForbesMomo prakash A Primary Care Provider Reason for Visit Reason Onset Date Comments Refill Request 09/28/2016 Encounter Details Date Type Department Care Team Description 09/28/2016 Refill [facility] Anita Joshi MD Refill Request Nephrology Clinic [address] [place] [address] [place] [address] [phone] Social History Tobacco Use Types Packs/Day Years [...] this encounter Miscellaneous Notes Telephone Encounter - Janes Jauregui RN - 09/28/2016 1:51 PM CST Last Office Visit with Blending Supervisor: March 2016. Medication refilled per Nephrology Clinic protocol. Janes Jauregui RN CTOR OF FINANCIAL AID documented in this encounter Plan of Treatment Not on filedocumented as of this encounter Visit Diagnoses Diagnosis Reactive depression - Primary Dysthymic disorder documented in this encounter Care Teams Wiring Inspector Relationship Specialty Start Date End Date Momo Forbes PCP - General Family Practice 01/02/14 [facility] [address] [place] [address] documented as of this encounter
--- OUTSIDE RECORDS SUMMARY | 2022-03-30 18:45 | XMS_ITS | Encounter Summary ---
:1950 Author Organization [place] Address [address] [place] [address] Care Team Providers Name Role Phone Momo Forbes Primary Care Provider Reason for Visit Reason Onset Date Comments Transplant 05/10/2016 refill Encounter Details Date Type Department Care Team Description 05/10/2016 Refill The Transplant Chucho Perez MD Transplant (refill) 2nd Floor, Clinic [address] [place] [address] [place] [address] Social History Tobacco Use Types [...] Notes Telephone Encounter - Janelle Flowers - 05/10/2016 2:20 PM CDT Drug Name: mycophenolate 250mg Pt states dose has decreased 750mg bid, please confirm and send new rx Thank you Janelle Flowers [facility] [phone] documented in this encounter Plan of Treatment Not on filedocumented as of this encounter Visit Diagnoses Diagnosis Kidney transplanted - Primary Kidney replaced by transplant documented in this encounter Care Teams Seconds Inspector Relationship Specialty Start Date End Date Momo Forbes PCP - General Family Practice 01/02/14 [place] [id number] documented as of this encounter
--- OUTSIDE RECORDS SUMMARY | 2022-03-30 18:45 | XMS_ITS | Encounter Summary ---
:1950 Author Organization [place] Address [address] [place] [address]. [place] [address] Care Team Providers Name Role Phone Momo Forbes Primary Care Provider Reason for Visit Reason Onset Date Comments Transplant 08/31/2017 Encounter Details Date Type Department Care Team Description 08/31/2017 Telephone [facility] Transplant Amanda Garduno Transplant [facility] M, RN [address] [place] [address] [phone] Social History Tobacco Use Types Packs/Day [...] on filedocumented in this encounter Care Teams Livestock Rancher Relationship Specialty Start Date End Date Momo Forbes PCP - General Family Practice 01/02/14 [facility] [address] [place] [address] documented as of this encounter
--- OUTSIDE RECORDS SUMMARY | 2022-03-30 18:45 | XMS_ITS | Encounter Summary ---
:1950 Author Organization [place] Address [address] [place] [address]. [place] [address] Care Team Providers Name Role Phone Momo Forbes Primary Care Provider Reason for Visit Reason Onset Date Comments Transplant 03/15/2016 refill Encounter Details Date Type Department Care Team Description 03/15/2016 Refill [facility] Cristy Chen LPN T ransplant (refill) Transplant Clinic [address] [place] [address] [phone] Social History Tobacco Use Types Packs/Day [...] as of this encounter Visit Diagnoses Diagnosis S/P kidney transplant - Primary Kidney replaced by transplant documented in this encounter Care Teams Commutator Presser Relationship Specialty Start Date End Date Momo Forbes PCP - General Family Practice 01/02/14 [facility] [address] [place] [address] documented as of this encounter
--- OUTSIDE RECORDS SUMMARY | 2022-03-30 18:45 | XMS_ITS | Encounter Summary ---
:1950 Author Organization [place] Address [facility] [place] [address] Care Team Providers Name Role Phone Momo Forbes Primary Care Provider Joseph Quintana MD Unavailable Encounter Details Date Type Department Care Team Description 03/18/2016 External Order Results [facility] Nurse, [facility] Transplant Clinic [address] [place] [address] Social History Tobacco Use Types [...] Associated Diagnosis Comme nts EXTERNAL LAB Routine 03/17/2016 10:45 AM Results for this RESULTS CDT procedure are i n the results section. documented in this encounter Results (ABNORMAL) TXP External Lab Result (03/17/2016 10:45 AM CDT) [facility] Method Time Signature Sodium (External) 139 135 - 145 LABDE SCAN mmol/L Potassium 4.4 3.5 - 5.0 LABDE SCAN (External) mmol/L Chloride 108 98 - 110 LABDE SCAN (External) mmol/L (External) CO2 (External) 20 (L) 21 - 31 LABDE SCAN mmol/L Anion Gap 11 5 - 18 LABDE SCAN (External) Glucose 298 (H) 65 - 100 LABDE SCAN (External) mg/dL Calcium 10.3 8.5 - LABDE SCAN (External) 10.5 mg/dL Urea Nitrogen 18 8 - 25 LABDE SCAN (External) mg/dL Creatinine 1.53 (H) 0.72 - LABDE SCAN (External) 1.25 mg/dL BUN/Creatinine 12 10 - 20 LABDE SCAN Ratio (External) GFR Estimated (if 56 (L) >60 LABDE SCAN ) ml/min/1. (External) 73m2 GFR Estimated 46 (L) >60 LABDE SCAN (External) ml/min/1. 73m2 Cholesterol 94 (L) 100 - 199 LABDE SCAN (External) mg/dL Triglycerides 103 <150 LABDE SCAN (External) mg/dL HDL Cholesterol 33 (L) >40 mg/dL LABDE SCAN (External) LDL-Cholesterol 40 <=130 LABDE SCAN (External) mg/dL WBC Count 4.6 4.5 - LABDE SCAN (External) 11.0 thou/cu mm RBC Count 5.08 4.30 - LABDE SCAN (External) 5.90 mil/cu mm Hemoglobin 14.5 13.5 - LABDE SCAN (External) 17.5 g/dL Hematocrit 43.3 37.0 - LABDE SCAN (External) 53.0 % MCV (External) 85 80 - 100 LABDE SCAN fL MCH (External) 28.5 26.0 - LABDE SCAN 34.0 pg MCHC (External) 33.5 32.0 - LABDE SCAN 36.0 g/dL RDW (External) 14.6 11.5 - LABDE SCAN 15.5 % Platelet Count 104 (L) 140 - 440 LABDE SCAN (External) thou/cu mm MPV (External) 11.3 (H) 6.5 - LABDE SCAN 11.0 fL Specimen (Source) Anatomical Collection Method Collection Time Re ceived Time Location / / Volume Laterality 03/17/2016 10:45 AM CDT Yohana LOPEZ [facility] - 03/18/2016 7:35 AM CDT Verified by Tabitha Mora on 03/18/2016. Patient Reported LABORATORY Performing Organization Address City/State/ZIP Code Phon e Number [facility] LABDE SCAN documented in this encounter Visit Diagnoses Not on filedocumented in this encounter Care Teams Rfid Developer Relationship Specialty Start Date End Date Momo Forbes PCP - General Family Practice 01/02/14 [facility] [address] [place] [address] Joseph Quintana, Assigned Nephrology 03/29/21 MD Provider [address] [place] [address] [address] [place] [address] documented as of this encounter
--- OUTSIDE RECORDS SUMMARY | 2022-03-30 18:45 | XMS_ITS | Encounter Summary ---
:1950 Author Organization [place] Address [facility] [place] [address] Care Team Providers Name Role Phone Leidy Momo He Primary Care Provider Reason for Visit Reason Onset Date Comments Transplant 03/30/2016 refill Encounter Details Date Type Department Care Team Description 03/30/2016 Refill The Transplant Deysi Burns MD Transplant (refill) 2nd Floor, Clinic [id number] [place] [address] [facility] [place] [address] Social History Tobacco Use Types [...] encounter Miscellaneous Notes Telephone Encounter - Janelle Jackson - 03/30/2016 9:52 AM CDT Drug Name: Prograf 1mg Last Fill Date: 02/19/16 Quantity: 60 Drug Name: Mycophenolate 250mg Last Fill Date: 02/19/16 Quantity: 240 Thanks!! Janelle Jackson [facility] documented in this encounter Plan of Treatment Not on filedocumented as of this encounter Visit Diagnoses Diagnosis Kidney transplanted - Primary Kidney replaced by transplant documented in this encounter Care Teams Pilot Boat Deckhand Relationship Specialty Start Date End Date Momo Forbes PCP - General Family Practice 01/02/[address] [address] documented as of this encounter
--- OUTSIDE RECORDS SUMMARY | 2022-03-30 18:45 | XMS_ITS | Encounter Summary ---
:1950 Author Organization [place] Address [facility] [place] [address] Care Team Providers Name Role Phone ForbesMomo prakash A Primary Care Provider Reason for Visit Reason Onset Date Comments Transplant Immunosuppression Management 08/13/2016 Encounter Details Date Type Department Care Team Description 08/13/[address] [facility] Shiva Kahn Transp lant Transplant Clinic RN Immunosuppression 9 [facility] Management [address] [address] [place] [address] [place], [place] [address] Social History Tobacco Use Types Packs/Day Years [...] Telephone Encounter - Cristy Chen LPN - 08/13/2016 1:17 PM CST Spoke to patient regarding tac level = 3.8. Patient confirms that this was not a good 12 hour troughlevel. Patient will repeat labs in 1-2 weeks. 911 OPERATOR Telephone Encounter - Shiva Kahn, RN - 08/13/2016 7:42 AM CST Tacrolimus level 3.8 reported as 18-hour level. PLAN: Verify timing of labs tac dose and time of blood draw for tac level. Repeat tac level taking care to get a good 12-hour level (11-13 hours acceptable). TASK: Please call patient with questions and instructions per plan. 911 OPERATOR documented in this encounter Plan of Treatment Not on filedocumented as of this encounter Visit Diagnoses Diagnosis Kidney replaced by transplant - Primary Aftercare following organ transplant Encounter for long-term current use of m edication documented in this encounter Care Teams Email Engineer Relationship Specialty Start Date End Date Momo Forbes PCP - General Family Practice 01/02/14 [facility] [address] [place] [address] documented as of this encounter
--- OUTSIDE RECORDS SUMMARY | 2022-03-30 18:45 | XMS_ITS | Encounter Summary ---
:1950 Author Organization [place] Address [facility]0 [facility] [place] [address] Care Team Providers Name Role Phone Momo Forbes Primary Care Provider Joseph Quintana MD Unavailable Encounter Details Date Type Department Care Team Description 08/18/2016 External Order Results [facility] Nurse, [facility] Transplant Clinic 9 [place] [address] Social History Tobacco Use Types [...] Associated Diagnosis Comme nts EXTERNAL LAB Routine 08/09/2016 12:21 PM Results for this RESULTS FILM INSPECTOR procedure are i n the results section. documented in this encounter Results (ABNORMAL) TXP External Lab Result (08/09/2016 12:21 PM FILM INSPECTOR) Analysis Performed At Patho logist Time Signature Sodium 140 135 - 145 LABDE SCAN (External) Potassium 5.0 3.5 - 5.0 LABDE SCAN (External) Chloride 106 98 - 110 LABDE SCAN (External) (External) CO2 (External) 26 21 - 31 LABDE SCAN Anion Gap 8 5 - 18 LABDE SCAN (External) Glucose 249 (H) 65 - 100 LABDE SCAN (External) Calcium 9.9 8.5 - 10.5 LABDE SCAN (External) Urea Nitrogen 16 8 - 25 LABDE SCAN (External) Creatinine 1.37 (H) 0.72 - LABDE SCAN (External) 1.25 BUN/Creatinine 12 10 - 20 LABDE SCAN Ratio (External) GFR Estimated >60 >60 LABDE SCAN (if ) (External) GFR Estimated 52 (L) >60 LABDE SCAN (External) Hemoglobin A1C 12.0 (H) <=6.4 LABDE SCAN (External) Specimen (Source) Anatomical Collection Method Collection Time Re ceived Time Location / / Volume Laterality 08/09/2016 12:21 PM FILM INSPECTOR Narrative [facility] - 08/18/2016 1:35 PM FILM INSPECTOR Verified by Jessica Major on 016. Patient Reported LABORATORY Performing Organization Address City/State/ZIP Code Phon e Number [facility] LABDE SCAN documented in this encounter Visit Diagnoses Not on filedocumented in this encounter Care Teams Road Marker Relationship Specialty Start Date End Date Momo Forbes PCP - General Family Practice 01/02/14 [facility] [address] [place], [place] [id number] Joseph Quintana, Assigned Nephrology 03/29/21 MD Provider [address] [place] [address] 353 [facility] [address] [place], [place] [address] documented as of this encounter
--- OUTSIDE RECORDS SUMMARY | 2022-03-30 18:45 | XMS_ITS | Encounter Summary ---
:1950 Author Organization [place] Address [facility]0 [facility] [place] [address] Care Team Providers Name Role Phone ForbesMomo prakash A Primary Care Provider Reason for Visit Reason Comments RECHECK Kidney follow up Encounter Details Date Type Department Care Team Description 10/25/2016 Office Visit [facility] Anita Joshi MD Renal hypertension, Nephrology Clinic [address] [place] [address] 1-4 [address] [place] [address] unspecified chronic [address] [place], [place] [address] (Primary Dx) [address] [phone] Social History Tobacco Use Types Packs/Day Years [...] Sign Reading Time Taken Comments Blood Pressure 168/83 10/25/2016 4:39 PM HOOK UP Pulse 55 10/25/2016 4:39 PM HOOK UP Temperature 36.8 ??C (98.3 ??F) 10/25/2016 4:39 PM HOOK UP Respiratory Rate 18 10/25/2016 4:39 PM HOOK UP Oxygen Saturation - - Inhaled Oxygen Concentration - - Weight 138.2 kg (304 lb 9.6 oz) 10/25/2016 4:39 PM HOOK UP Height 182.9 cm (6') 10/25/2016 4:39 PM HOOK UP Body Mass Index 41.31 10/25/2016 4:39 PM HOOK UP documented in this encounter Progress Notes Chucho Joshi MD - 10/25/2016 4:40 PM CST CHIEF COMPLAINT: Followup for kidney transplantation. ? HISTORY OF PRESENT ILLNESS: Mr. 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 His postoperative course was complicated by slow graft function and new onset atrial fibrillation. He was initially on Coumadin, but that has been stopped. ? During today's visit, we discussed the following issues: 1. Allograft function. His serum creatinine continues to be stable at 1.39. He is currently on tacrolimus 1 mg b.i.d. in addition to CellCept 750 mg b.i.d. His last tacrolimus level was 3.5. I increased his prograf to 1.5mg bid 2. Hypertension. He is currently on metoprolol 50 mg b.i.d. in addition to amlodipine 10 mg daily. His BP is quite elevated at home and in clinic so I added lasix 20mg daily 3. Low-grade thrombocytopenia. Interestingly, his platelets have [...] unlikely to be present in this hernandez. 4. Massive weight gain. We talked about exercise and healthier eating habits. This continues to be amajor issue for him. 5. DM with terrible control: I would like us to move towards switching him to CsA if his next HbA1c is still elevated ? Twenty-five minutes were spent with him, over half of which were in counseling regarding long-term immunosuppression and the serious threats of poorly controlled hypertension and diabetes on his overall health and his allograft documented in this encounter Nursing Notes Marcelina Sesay CMA - 10/25/2016 4:40 PM CST Chief Complaint Patient presents with ??? RECHECK Kidney follow up Initial BP 168/83 Pulse 55 Temp 98.3 ??F (36.8 ??C) (Oral) Resp 18 Ht 1.829 m (6') Wt (!) 138.2 kg (304 lb 9.6 oz) BMI 41.31 kg/m2 Estimated body mass index is 41.31 kg/(m^2) as calculated from the following: Height as of this encounter: 1.829 m (6'). Weight as of this encounter: 138.2 kg (304 lb 9.6 oz). Medication Reconciliation: complete UP documented in this encounter Plan of Treatment Not on filedocumented as of this encounter Visit Diagnoses Diagnosis Renal hypertension, stage 1-4 or unspeci fied chronic kidney disease - Primary documented in this encounter Care Teams Development Representative Relationship Specialty Start Date End Date Momo Forbes PCP - General Family Practice 01/02/14 [facility] [address] [place] [address] documented as of this encounter
--- OUTSIDE RECORDS SUMMARY | 2022-03-30 18:45 | XMS_ITS | Encounter Summary ---
:1950 Author Organization [place] Address [address] [place] [address]. [place] [address] Care Team Providers Name Role Phone Momo Forbes Primary Care Provider Reason for Visit Reason Onset Date Comments Refill Request 10/11/2017 Encounter Details Date Type Department Care Team Description 10/11/2017 Refill [facility] Transplant Debbie Calderon LPN Refill Request Clinic [address] [place] [address] [phone] Social History Tobacco Use Types Packs/Day [...] transplant documented in this encounter Care Teams Vat House Laborer Relationship Specialty Start Date End Date Momo Forbes PCP - General Family Practice 01/02/14 [facility] [address] [place] [address] documented as of this encounter
--- OUTSIDE RECORDS SUMMARY | 2022-03-30 18:45 | XMS_ITS | Encounter Summary ---
:1950 Author Organization [place] Address [address] [place] [address]. [place] [address] Care Team Providers Name Role Phone Momo Forbes Primary Care Provider Reason for Visit Reason Onset Date Comments Transplant 05/26/2017 refill Encounter Details Date Type Department Care Team Description 05/26/2017 Refill [facility] Anita Joshi MD Transplant (refill) Nephrology Clinic [address] [place] [phone] [place] [address] (Wo rk) [address] [phone] Social History Tobacco Use Types Packs/Day Years [...] transplant documented in this encounter Care Teams Feather Separator Relationship Specialty Start Date End Date Momo Forbes PCP - General Family Practice 01/02/14 [facility] [address] [place] [address] documented as of this encounter
--- OUTSIDE RECORDS SUMMARY | 2022-03-30 18:45 | XMS_ITS | Encounter Summary ---
:1950 Author Organization [place] Address [address] [place] [address]. [place] [address] Care Team Providers Name Role Phone Momo Forbes Primary Care Provider Reason for Visit Reason Onset Date Comments Transplant 12/02/2016 refill Encounter Details Date Type Department Care Team Description 12/02/2016 Refill [facility] Anita Joshi MD Transplant (refill) Nephrology Clinic [address] [place] [phone] [place] [address] (Wo rk) [address] [phone] Social History Tobacco Use Types Packs/Day Years [...] transplant documented in this encounter Care Teams Malt House Loader Relationship Specialty Start Date End Date Momo Forbes PCP - General Family Practice 01/02/14 [facility] [address] [place] [address] documented as of this encounter
--- OUTSIDE RECORDS SUMMARY | 2022-03-30 18:45 | XMS_ITS | Encounter Summary ---
:1950 Author Organization [place] Address [address] [facility] [place] [address] Care Team Providers Name Role Phone Momo Forbes A Primary Care Provider Reason for Visit Reason Onset Date Comments Refill Request 10/10/2017 mycophenolae Encounter Details Date Type Department Care Team Description 10/10/2017 Refill [facility] Mariano, Joseph Refill [facility] Trans[facility] MD Herminio (mycophenolae ) [address] [place] [phone] [place] [address] (Wo rk) Social History Tobacco [...] encounter Miscellaneous Notes Telephone Encounter - Janelle Flowres - 10/10/2017 8:26 AM CST Drug Name: mycophenolate 250mg Last Fill Date: 09/01/17 Quantity: 180 Janelle Flowers [facility] [phone] ICAL LAB CLERK documented in this encounter Plan of Treatment Not on filedocumented as of this encounter Visit Diagnoses Diagnosis Kidney transplanted Kidney replaced by transplant documented in this encounter Care Teams Mud Engineer Relationship Specialty Start Date End Date Momo Forbes PCP - General Family Practice 01/02/14 [facility] [address] [place] [address] documented as of this encounter
--- OUTSIDE RECORDS SUMMARY | 2022-03-30 18:45 | XMS_ITS | Encounter Summary ---
:1950 Author Organization [place] Address [facility] [place] [address] Care Team Providers Name Role Phone ForbesMomo prakash A Primary Care Provider Encounter Details Date Type Department Care Team Description 10/25/2016 Orders Only [facility] Thrombocytopenia (H); [address] Aftercare following organ tr ansplant; 1st Floor Kidney replaced by transplan t; [place], [place] Encounter fo r long-term current use of medication [id number] Social History Tobacco Use Types Packs/Day [...] Name Priority Date/Time Associated Diagnosis Comme nts RBC FOLATE Routine 10/25/2016 3:54 Thrombocytopenia (H) Resu lts for this PM DEPLOYMENT MANAGER procedure are i n the results section. BASIC METABOLIC Routine 10/25/2016 3:54 Aftercare following Re sults for this PANEL PM DEPLOYMENT MANAGER organ transplant procedure are in Kidney replaced by the resul ts transplant section. Encounter for long-term current use of medication CBC WITH PLATELETS Routine 10/25/2016 3:54 Aftercare following Results for this PM DEPLOYMENT MANAGER organ transplant procedure are in Kidney replaced by the [facility] ts transplant section. Encounter for long-term current use of medication PROTEIN RANDOM Routine 10/25/2016 3:52 Aftercare following Res ults for this URINE PM DEPLOYMENT MANAGER organ transplant procedure are in Kidney replaced by the [facility] ts transplant section. Encounter for long-term current use of medication CREATININE URINE Routine 10/25/2016 3:52 Thrombocytopenia (H) Results for this CALCULATION ONLY PM DEPLOYMENT MANAGER procedure a re in (LAB ONLY) the results section. documented in this encounter Results (ABNORMAL) Basic metabolic panel (10/25/2016 3:54 PM DEPLOYMENT MANAGER) [facility] Method Time Signature Sodium 142 133 - 144 [facility] mmol/L [facility] Potassium 4.2 3.4 - 5.3 [facility] mmol/L [facility] Chloride 108 94 - 109 [facility] mmol/L [facility] Carbon Dioxide 28 20 - 32 [facility] mmol/L [facility] Anion Gap 7 3 - 14 [facility] mmol/L [facility] Glucose 120 (H) 70 - 99 [facility] mg/dL [facility] Urea Nitrogen 19 7 - 30 [facility] mg/dL [facility] Creatinine 1.39 (H) 0.66 - [facility] 1.25 mg/dL [facility] GFR Estimate 51 (L) >60 [facility] mL/min/1.7 [place] m2 [facility] Comment: Non GFR Calc GFR Estimate If Black 62 >60 mL/min/1.7m2 [facility] Comment: GFR Calc Calcium 9.4 8.5 - 10.1 mg/dL [facility] Specimen Anatomical Collection Method Collection Time Receive d Time (Source) Location / / Volume Laterality Blood specimen 10/25/2016 3:54 PM 017 3:55 (specimen) DEPLOYMENT MANAGER PM DEPLOYMENT MANAGER Chucho Joshi MD LAB - BLOOD ORDERABLES Performing Organization Address City/State/ZIP Code Phon e Number [address] [phone] [facility] (ABNORMAL) CBC with platelets (10/25/2016 3:54 PM DEPLOYMENT MANAGER) Analysis Performed At Patho logist Time Signature WBC 5.1 4.0 - 11.0 [facility] 10e9/L [facility] RBC Count 5.50 4.4 - 5.9 [facility] 10e12/L [facility] Hemoglobin 15.5 13.3 - [facility] 17.7 g/dL [facility] Hematocrit 46.0 40.0 - [facility] 53.0 % [facility] MCV 84 78 - 100 [facility] fl [facility] MCH 28.2 26.5 - [facility] 33.0 pg [facility] MCHC 33.7 31.5 - [facility] 36.5 g/dL [facility] RDW 14.1 10.0 - [facility] 15.0 % [facility] Platelet Count 124 (L) 150 - 450 [facility] 10e9/L [facility] Specimen Anatomical Collection Method Collection Time Receive d Time (Source) Location / / Volume Laterality Blood specimen 10/25/2016 3:54 PM 017 3:55 (specimen) DEPLOYMENT MANAGER PM DEPLOYMENT MANAGER Chucho Joshi MD LAB - BLOOD ORDERABLES Performing Organization Address City/[facility] [place] [address] [facility] Folate RBC (10/25/2016 3:54 PM DEPLOYMENT MANAGER) P athologist Signature HCT Within 46.0 % [facility] Past 24h [facility] Folate RBC 663 ng/mL [facility] Comment: Reference range: >=366 (Note) Performed by [employer], [address] [place] [id number] [email or web address], Geoff Reed MD, Lab. Director Specimen Anatomical Collection Method Collection Time Receive d Time (Source) Location / / Volume Laterality Blood specimen 10/25/2016 3:54 PM 017 3:55 (specimen) DEPLOYMENT MANAGER PM DEPLOYMENT MANAGER Chucho Joshi MD LAB - BLOOD ORDERABLES Performing Organization Address City/[facility]/ZIP Code Phon e Number [address] [id number] [facility] Creatinine urine calculation only (10/25/2016 3:52 PM DEPLOYMENT MANAGER) P athologist Signature Creatinine 152 mg/dL [facility] Specimen Anatomical Collection Method Collection Time Receive d Time (Source) Location / / Volume Laterality 10/25/2016 3:52 PM 201 7 4:12 DEPLOYMENT MANAGER PM DEPLOYMENT MANAGER Chucho Joshi MD LAB - URINE ORDERABLES Performing Organization Address City/State/ZIP Code Phon e Number [facility] [address] [address] [facility] [address] [place] [address], [place] [phone] (ABNORMAL) Protein random urine (10/25/2016 3:52 PM DEPLOYMENT MANAGER) Analysis Performed At Patho logist Time Signature Protein Random 0.48 g/L [facility] Protein Total 0.31 (H) 0 - 0.2 [place] Urine g/gr g/g Cr [facility] Specimen Anatomical Collection Method Collection Time Receive d Time (Source) Location / / Volume Laterality Urine specimen 10/25/2016 3:52 PM 017 4:12 (specimen) DEPLOYMENT MANAGER PM DEPLOYMENT MANAGER Chucho Joshi MD LAB - URINE ORDERABLES Performing Organization Address City/State/ZIP Code Phon e Number [facility] [address] [address] [facility] [address] [place] [address], [place] [phone] documented in this encounter Visit Diagnoses Diagnosis Thrombocytopenia (H) Thrombocytopenia, unspecified Aftercare following organ transplant Kidney replaced by transplant Encounter for long-term current use of m edication documented in this encounter Care Teams Oil Field Operator Relationship Specialty Start Date End Date Momo Forbes PCP - General Family Practice 01/02/14 [facility] [address] [place] [address] documented as of this encounter
--- OUTSIDE RECORDS SUMMARY | 2022-03-30 18:45 | XMS_ITS | Encounter Summary ---
:1950 Author Organization [place] Address [facility] [place] [address] Care Team Providers Name Role Phone Momo Forbes Primary Care Provider Joseph Quintana MD Unavailable Encounter Details Date Type Department Care Team Description 05/03/2016 External Order Results [facility] Nurse, [facility] [address] [place] [address] Social History Tobacco Use Types [...] Diagnosis Comme nts EXTERNAL LAB Routine 03/17/2016 10:40 AM Results for this RESULTS CDT procedure are i n the results section. documented in this encounter Results (ABNORMAL) TXP External Lab Result (03/17/2016 10:40 AM CDT) Analysis Performed At Patho logist Time Signature Protein Total 25 (H) 1 - 14 LABDE SCAN Ur (External) mg/dL Creatinine 57.4 (L) 63.0 - LABDE SCAN Urine mg/dL 166.0 (External) mg/dL Protein Total 0.4 RATIO LABDE SCAN Ur per Cr (External) Specimen (Source) Anatomical Collection Method Collection Time Re ceived Time Location / / Volume Laterality 03/17/2016 10:40 AM CDT Narrative [facility] - 05/03/2016 9:58 AM CDT Verified by Xiomara Bello on 05/03/20 16. Patient Reported LABORATORY Performing Organization Address City/State/ZIP Code Phon e Number [facility] documented in this encounter Visit Diagnoses Not on filedocumented in this encounter Care Teams Red Lead Burner Relationship Specialty Start Date End Date Momo Forbes PCP - General Family Practice 01/02/14 [facility] [address] [place] [address] Joseph Quintana, Assigned Nephrology 03/29/21 MD Provider [address] [place], [place] [address] documented as of this encounter
--- OUTSIDE RECORDS SUMMARY | 2022-03-30 18:45 | XMS_ITS | Encounter Summary ---
:1950 Author Organization [place] Address [address] [place] [address] Care Team Providers Name Role Phone Momo Forbes A Primary Care Provider Reason for Visit Reason Onset Date Comments Refill Request 06/28/2017 mycophenolate Encounter Details Date Type Department Care Team Description 06/28/2017 Refill [facility] Mariano, Joseph Refill R equest Transplant Clinic MD Herminio (mycophenolate) [address] [place] [phone] [place] [address] (Wo rk) Social History Tobacco [...] Notes Telephone Encounter - Janelle Flowers - 06/28/2017 1:54 PM CST Drug Name: mycophenolate 250mg Last Fill Date: 05/31/17 Quantity: 180 Janelle Flowers [facility] [phone] APPLICATION ARCHITECT documented in this encounter Plan of Treatment Not on filedocumented as of this encounter Visit Diagnoses Diagnosis Kidney transplanted - Primary Kidney replaced by transplant documented in this encounter Care Teams Mate Relief Relationship Specialty Start Date End Date Momo Forbes PCP - General Family Practice 01/02/[address] [address] documented as of this encounter
--- OUTSIDE RECORDS SUMMARY | 2022-03-30 18:45 | XMS_ITS | Encounter Summary ---
:1950 Author Organization [place] Address [facility] [place] [address] Care Team Providers Name Role Phone ForbesMomo santiago A Primary Care Provider Reason for Visit Reason Onset Date Comments Transplant 06/01/2017 Diego returning call Left on 06/05/17 Encounter Details Date Type Department Care Team Description 06/01/2017 [facility] Shiva Kahn, warehouse receiving clerk ([facility] returning call Left [facility] on 06/05/17) [place], [place] [phone] [place], [place] [phone] [address] Social History Tobacco Use Types Packs/Day [...] Telephone Encounter - Alana Calderon LPN - 06/06/2017 10:59 AM CDT Order sent Telephone Encounter - Shiva Kahn RN - 06/06/2017 9:35 AM CDT Patient returned call. PLAN: Repeat tacrolimus level taking care to get a good 12-hour level. FIELD ARTILLERY FIRE CONTROL MAN TASK: Please fax lab order for tacrolimus level Telephone Encounter - Mary Whitehead - 06/06/2017 7:47 AM CDT Please call Diego. Called on Tuesday left to call him on Tuesday06/06/17. ADDENDUM: FIELD ARTILLERY FIRE CONTROL MAN TASK: Call with questions and instruction per plan below. Telephone Encounter - Shiva Kahn RN - 06/01/2017 2:41 PM CDT Tacrolimus level 3.0 drawn at 1:01 PM on 05/30/19. Last tacrolimus dose recorded as 7:30 PM on 05/29/17. PLAN: Verify time interval between lab draw and last tacrolimus dose. - if 14 hours or less, no changes/no actions - if more than 14 hours, repeat test taking care to get a good 12-hour level (11-13 hours acceptable) PHONE CALL: Left voicemail message requesting call back. documented in this encounter Plan of Treatment Not on filedocumented as of this encounter Visit Diagnoses Not on filedocumented in this encounter Care Teams Ctrs Relationship Specialty Start Date End Date Momo Forbes PCP - General Family Practice 01/02/14 [facility] [address] [place] [address] documented as of this encounter
--- OUTSIDE RECORDS SUMMARY | 2022-03-30 18:45 | XMS_ITS | Encounter Summary ---
:1950 Author Organization [place] Address [address] [place] [address]. [place] [address] Care Team Providers Name Role Phone Momo Forbes Primary Care Provider Encounter Details Date Type Department Care Team Description 03/23/2017 Orders Only [facility] Orlando Richey Kidne y replaced by Nephrology Clinic transplant (Primary [address]) [address] [place] [phone] Social History Tobacco Use Types Packs/Day [...] Diagnosis Kidney replaced by transplant - Primary documented in this encounter Care Teams Silk Worker Relationship Specialty Start Date End Date Momo Forbes PCP - General Family Practice 01/02/14 [facility] [address] [place] [address] documented as of this encounter
--- OUTSIDE RECORDS SUMMARY | 2022-03-30 18:45 | XMS_ITS | Encounter Summary ---
:1950 Author Organization [place] Address [address] [place] [address] Care Team Providers Name Role Phone Momo Forbes Primary Care Provider Encounter Details Date Type Department Care Team Description 07/15/2017 Orders Only [facility] Loy Morales Kid ney replaced by [facility] MD transplant Laboratory [address] [facility] [address] [facility] [address] [place] [id number] (Wo rk) Social History Tobacco Use Types [...] Associated Comments Diagnosis TACROLIMUS BY TANDEM Routine 07/15/2017 10:48 Kidney replaced by Results for this MASS SPECTROMETRY AM [address] LIGHT transplant procedure are in the results section. documented in this encounter Results (ABNORMAL) Tacrolimus level (07/15/2017 10:[address] L[address]) [facility] Method Time Signature Tacrolimus Last 0000 07/19/2017 [facility] 07/15/17 10:48 AM [facility] Tacrolimus 4.4 (L) 5.0 - 07/19/2017 [facility] Level 15.0 ug/L 2:38 PM [facility] Comment: Tacrolimus Reference Range Kidney Transplant [...] characteristics determined by the [facility], ??Special Chemistry Laboratory. It has not been cleared or approved by the FDA. The laboratory is regulated under CLIA as qualified to perform high-comple xity testing. This test is used for clinical purposes. It should not be rega rded as investigational or for research. Specimen Anatomical Collection Method Collection Time Receive d Time (Source) Location / / Volume Laterality Blood specimen 07/15/2017 10:48 7 (specimen) AM [address] LIGHT 10:[address] [facility] Orlando Richey MD LAB - BLOOD ORDERABLES Performing Organization Address City/State/ZIP Code Phon e Number [facility] [address] [place], [place] [phone] [place] [address] [address] [place], [place] [phone] [place] [address] documented in this encounter Visit Diagnoses Diagnosis Kidney replaced by transplant documented in this encounter Care Teams Box Icer Relationship Specialty Start Date End Date Momo Forbes PCP - General Family Practice 01/02/14 [facility] [address] [place] [address] documented as of this encounter
--- OUTSIDE RECORDS SUMMARY | 2022-03-30 18:45 | XMS_ITS | Encounter Summary ---
:1950 Author Organization [place] Address [facility] [address] Care Team Providers Name Role Phone Momo Forbes Primary Care Provider Joseph Quintana MD Unavailable Encounter Details Date Type Department Care Team Description 09/09/2017 External Order [facility] Nurse, [facility] Kidney replaced by Results Transplant Clinic transplant [address] [place] [id number] Social History Tobacco Use Types Packs/Day [...] Date/Time Associated Comments Diagnosis HEMOGLOBIN A1C Routine 07/15/2017 10:48 AM Result s for this HEAVY EQUIPMENT PLUMBING SUPERVISOR procedure are i n the results section. BASIC METABOLIC Routine 07/15/2017 10:48 AM Kidney replaced by Results for this PANEL HEAVY EQUIPMENT PLUMBING SUPERVISOR transplant procedure are i n the results section. HEMOGLOBIN A1C Routine 05/30/2017 9:32 AM Results for this CDT procedure are i n the results section. BASIC METABOLIC Routine 05/30/2017 9:32 AM Kidney replaced by Results for this PANEL CDT transplant procedure are i n the results section. CBC WITH PLATELETS Routine 05/30/2017 9:32 AM Kidney replaced by Results for this CDT transplant procedure are i n the results section. LIPID PROFILE Routine 01/19/2017 9:30 AM Results for this CDT procedure are i n the results section. HEMOGLOBIN A1C Routine 01/19/2017 9:30 AM Results for this CDT procedure are i n the results section. ALT Routine 01/19/2017 9:30 AM Results f or this CDT procedure are i n the results section. BASIC METABOLIC Routine 01/19/2017 9:30 AM Result s for this PANEL CDT procedure are i n the results section. documented in this encounter Results (ABNORMAL) Hemoglobin A1c (07/15/2017 10:48 AM HEAVY EQUIPMENT PLUMBING SUPERVISOR) Patholo gist Method Time Signature Hemoglobin A1C >14.0 (H) <=6.4 % LABDE SCAN (External) Specimen (Source) Anatomical Collection Method Collection Time Re ceived Time Location / / Volume Laterality Blood specimen 07/15/2017 10:48 (specimen) AM HEAVY EQUIPMENT PLUMBING SUPERVISOR Narrative ZACHERYMARIELABea PFT - 09/09/2017 9:36 PM HEAVY EQUIPMENT PLUMBING SUPERVISOR Verified by Sharon Martinez on 8. Patient Reported LAB - BLOOD ORDERABLES Performing Organization Address City/State/ZIP Code Phon e Number JESSICA PFT LABDE SCAN (ABNORMAL) Basic metabolic panel (07/15/2017 10:48 AM HEAVY EQUIPMENT PLUMBING SUPERVISOR) Analysis Performed At Patho logist Time Signature Sodium 135 135 - 145 LABDE SCAN (External) mmol/L Potassium 4.2 3.5 - 5.0 LABDE SCAN (External) mmol/L Chloride 104 98 - 110 LABDE SCAN (External) mmol/L (External) CO2 (External) 22 21 - 31 LABDE SCAN mmol/L Anion Gap 9 5 - 18 LABDE SCAN (External) Glucose 347 (H) 65 - 100 LABDE SCAN (External) mg/dL Calcium 10.1 8.5 - 10.5 LABDE SCAN (External) mg/dL Urea Nitrogen 26 (H) 8 - 25 LABDE SCAN (External) mg/dL Creatinine 1.53 (H) 0.72 - LABDE SCAN (External) 1.25 mg/dL BUN/Creatinine 17 10 - 20 LABDE SCAN Ratio (External) GFR Estimated 55 (L) >60 LABDE SCAN (if ml/min/1.7 Tajik) 3m2 (External) GFR Estimated 46 (L) >60 LABDE SCAN (External) ml/min/1.7 3m2 Specimen (Source) Anatomical Collection Method Collection Time Re ceived Time Location / / Volume Laterality Blood specimen 07/15/2017 10:48 (specimen) AM HEAVY EQUIPMENT PLUMBING SUPERVISOR Narrative BREEZE PFT - 09/09/2017 9:36 PM HEAVY EQUIPMENT PLUMBING SUPERVISOR Verified by Sharon Martinez on 8. Orlando Richey MD LAB - BLOOD ORDERABLES Performing Organization Address City/State/ZIP Code Phon e Number BREEZE PFT LABDE SCAN (ABNORMAL) Hemoglobin A1c (05/30/2017 9:32 AM CDT) Analysis Performed At Patho logist Time Signature Hemoglobin A1C 14.0 (H) <=6.4 % LABDE SCAN (External) Specimen (Source) Anatomical Collection Method Collection Time Re ceived Time Location / / Volume Laterality Blood specimen 05/30/2017 9:32 AM (specimen) CDT Narrative BREEZE PFT - 09/09/2017 9:39 PM HEAVY EQUIPMENT PLUMBING SUPERVISOR Verified by Sharon Martinez on 8. Patient Reported LAB - BLOOD ORDERABLES Performing Organization Address City/State/ZIP Code Phon e Number BREEZE PFT LABDE SCAN (ABNORMAL) CBC with platelets (05/30/2017 9:32 AM CDT) P athologist Signature WBC Count 4.4 (L) 4.5 - 11.0 LABDE SCAN (External) thou/cu mm RBC Count 5.48 4.30 - LABDE SCAN (External) 5.90 mil/cu mm Hemoglobin 15.7 13.5 - LABDE SCAN (External) 17.5 g/dL Hematocrit 45.8 37.0 - LABDE SCAN (External) 53.0 % MCV (External) 84 80 - 100 LABDE SCAN fL MCH (External) 28.6 26.0 - LABDE SCAN 34.0 Pg MCHC (External) 34.3 32.0 - LABDE SCAN 36.0 g/dL RDW (External) 14.0 11.5 - LABDE SCAN 15.5 % Platelet Count 103 (L) 140 - 440 LABDE SCAN (External) thou/cu mm Specimen (Source) Anatomical Collection Method Collection Time Re ceived Time Location / / Volume Laterality Blood specimen 05/30/2017 9:32 AM (specimen) CDT Narrative BREEZE PFT - 09/09/2017 9:39 PM HEAVY EQUIPMENT PLUMBING SUPERVISOR Verified by Sharon Martinez on 8. Orlando Richey MD LAB - BLOOD ORDERABLES Performing Organization Address City/State/ZIP Code Phon e Number BREEZE PFT LABDE SCAN (ABNORMAL) Basic metabolic panel (05/30/2017 9:32 AM CDT) Analysis Performed At Patho logist Time Signature Sodium 131 (L) 135 - 145 LABDE SCAN (External) mmol/L Potassium 4.7 3.5 - 5.0 LABDE SCAN (External) mmol/L Chloride 98 98 - 110 LABDE SCAN (External) mmol/L (External) CO2 (External) 23 21 - 31 LABDE SCAN mmol/L Anion Gap 10 5 - 18 LABDE SCAN (External) Glucose 640 (HH) 65 - 100 LABDE SCAN (External) mg/dL Calcium 10.1 8.5 - 10.5 LABDE SCAN (External) mg/dL Urea Nitrogen 20 8 - 25 LABDE SCAN (External) mg/dL Creatinine 1.63 (H) 0.72 - LABDE SCAN (External) 1.25 mg/dL BUN/Creatinine 12 10 - 20 LABDE SCAN Ratio (External) GFR Estimated 51 (L) >60 LABDE SCAN (if ml/min/1.7 Tajik) 3m2 (External) GFR Estimated 42 (L) >60 LABDE SCAN (External) ml/min/1.7 3m2 Specimen (Source) Anatomical Collection Method Collection Time Re ceived Time Location / / Volume Laterality Blood specimen 05/30/2017 9:32 AM (specimen) CDT Narrative BREEZE PFT - 09/09/2017 9:39 PM HEAVY EQUIPMENT PLUMBING SUPERVISOR Verified by Sharon Martinez on 8. Orlando Richey MD LAB - BLOOD ORDERABLES Performing Organization Address City/State/ZIP Code Phon e Number BREEZE PFT LABDE SCAN ALT (01/19/2017 9:30 AM CDT) P athologist Signature ALT (External) 11 8 - 45 IU/L LABDE SCAN Specimen (Source) Anatomical Collection Method Collection Time Re ceived Time Location / / Volume Laterality Blood specimen 01/19/2017 9:30 AM (specimen) CDT Narrative BREEZE PFT - 09/09/2017 9:44 PM HEAVY EQUIPMENT PLUMBING SUPERVISOR Verified by Sharon Martinez on 8. Patient Reported LAB - BLOOD ORDERABLES Performing Organization Address City/State/ZIP Code Phon e Number BREEZE PFT LABDE SCAN (ABNORMAL) Lipid Profile (01/19/2017 9:30 AM CDT) Patholo gist Method Time Signature Cholesterol 102 100 - 199 LABDE SCAN (External) mg/dL Triglycerides 110 <150 mg/dL LABDE SCAN (External) HDL Cholesterol 35 (L) >40 mg/dL LABDE SCAN (External) LDL Cholesterol 45 <=130 LABDE SCAN Calculated mg/dL (External) Specimen (Source) Anatomical Collection Method Collection Time Re ceived Time Location / / Volume Laterality Blood specimen 01/19/2017 9:30 AM (specimen) CDT Narrative BREEZE PFT - 09/09/2017 9:44 PM HEAVY EQUIPMENT PLUMBING SUPERVISOR Verified by Sharon Martinez on 8. Patient Reported LAB - BLOOD ORDERABLES Performing Organization Address City/State/ZIP Code Phon e Number BREEZE PFT LABDE SCAN (ABNORMAL) Hemoglobin A1c (01/19/2017 9:30 AM CDT) Analysis Performed At Patho logist Time Signature Hemoglobin A1C 12.4 (H) <=6.4 % LABDE SCAN (External) Specimen (Source) Anatomical Collection Method Collection Time Re ceived Time Location / / Volume Laterality Blood specimen 01/19/2017 9:30 AM (specimen) CDT Narrative BREEZE PFT - 09/09/2017 9:44 PM HEAVY EQUIPMENT PLUMBING SUPERVISOR Verified by Sharon Martinez on 8. Patient Reported LAB - BLOOD ORDERABLES Performing Organization Address City/State/ZIP Code Phon e Number BREEZE PFT LABDE SCAN (ABNORMAL) Basic metabolic panel (01/19/2017 9:30 AM CDT) Analysis Performed At Patho logist Time Signature Sodium 138 135 - 145 LABDE SCAN (External) mmol/L Potassium 4.2 3.5 - 5.0 LABDE SCAN (External) mmol/L Chloride 105 98 - 110 LABDE SCAN (External) mmol/L (External) CO2 (External) 25 21 - 31 LABDE SCAN mmol/L Anion Gap 8 5 - 18 LABDE SCAN (External) Glucose 304 (H) 65 - 100 LABDE SCAN (External) mg/dL Calcium 10.0 8.5 - 10.5 LABDE SCAN (External) mg/dL Urea Nitrogen 19 8 - 25 LABDE SCAN (External) mg/dL Creatinine 1.53 (H) 0.72 - LABDE SCAN (External) 1.25 mg/dL BUN/Creatinine 12 10 - 20 LABDE SCAN Ratio (External) GFR Estimated 55 (L) >60 LABDE SCAN (if ml/min/1.7 Tajik) 3m2 (External) GFR Estimated 46 (L) >60 LABDE SCAN (External) ml/min/1.7 3m2 Specimen (Source) Anatomical Collection Method Collection Time Re ceived Time Location / / Volume Laterality Blood specimen 01/19/2017 9:30 AM (specimen) CDT Narrative JESSICA PFT - 09/09/2017 9:44 PM HEAVY EQUIPMENT PLUMBING SUPERVISOR Verified by Sharon Martinez on 8. Patient Reported LAB - BLOOD ORDERABLES Performing Organization Address City/State/ZIP Code Phon e Number BREEZBea PFT LABDE SCAN documented in this encounter Visit Diagnoses Diagnosis Kidney replaced by transplant documented in this encounter Care Teams Furnace Charger Relationship Specialty Start Date End Date Momo Forbes PCP - General Family Practice 01/02/14 [facility] [address] [place] [address] Joseph Quintana, Assigned Nephrology 03/29/21 Provider [address] [facility] [place] [address] [facility] [address] [place] [address] documented as of this encounter
--- OUTSIDE RECORDS SUMMARY | 2022-03-30 18:45 | XMS_ITS | Encounter Summary ---
:1950 Author Organization [place] Address [address] [place] [address] Care Team Providers Name Role Phone ForbesMomo santiago A Primary Care Provider Encounter Details Date Type Department Care Team Description 02/20/2016 Orders Only [facility] Mariano, Joseph Perdomo isael, [facility] MICHELE [address] [facility] [address] [place], [place] [phone] [address] [address] [place] [address] (Wo rk) Social History Tobacco [...] Associated Comments Diagnosis TACROLIMUS BY TANDEM Routine 03/17/2016 10:44 Res ults for this MASS SPECTROMETRY AM CDT procedure are in the results section. documented in this encounter Results (ABNORMAL) Tacrolimus level (03/17/2016 10:44 AM CDT) [facility] Method Time Signature Tacrolimus Last [address] [facility] Dose 03/16/16 [facility] Tacrolimus 4.2 (L) 5.0 - [facility] Level 15.0 ug/L [facility] Comment: Tacrolimus Reference Range Kidney Transplant [...] its perform ance characteristics determined by the [facility], ??Special Chemistry Laboratory. It has not been cleared or approved by the FDA . The laboratory is regulated under CLIA as qualified to perform high-complexity testing. This test is used for clinical purposes. It should not be regarded as investigational or for research. Specimen Anatomical Collection Method Collection Time Receive d Time (Source) Location / / Volume Laterality 03/17/2016 10:44 03/18/2016 AM CDT 10:09 AM CDT Mingo Dangelo MD LAB - BLOOD ORDERABLES Performing Organization Address City/State/ZIP Code Phon e Number [facility] [address] [place], [place] [id number] [place] [address] documented in this encounter Visit Diagnoses Not on filedocumented in this encounter Care Teams Tableau Analyst Relationship Specialty Start Date End Date Momo Forbes PCP - General Family Practice 01/02/14 [facility] [address] [place] [address] documented as of this encounter
--- OUTSIDE RECORDS SUMMARY | 2022-03-30 18:46 | XMS_ITS | Encounter Summary ---
:1950 Author Organization [place] Address [facility] [place] [address] Care Team Providers Name Role Phone Ingrid Santana RN Unavailable Momo Forbes Primary Care Provider Reason for Referral Consultation - Closed Specialty Diagnoses / Procedures Referred By Contact Refer red To Contact Diagnoses Morbid obesity due to excess calories (H) Deysi Alicea MD [facility] [address] [place] [id number] Referral ID Status Reason Start Date Expiration Date Visits Requ ested Visits Authorized [id number] Closed 09/02/2015 09/01/2016 1 1 EY DISPATCHER Reason for Visit Reason Comments RECHECK Follow up Kidney TX 4 Encounter Details Date Type Department Care Team Description 09/02/2015 Office Visit Nephrology Deysi Alicea, S/P kidney transplant (Prima ry Dx); 2nd Floor, Clinic 2A Morbid obesity due to excess calories (H ) Tommy Wilburn [address] [place] [id number] [place] [address] (Wo rk) [phone] Social History Tobacco Use Types Packs/Day Years [...] Sign Reading Time Taken Comments Blood Pressure 128/72 09/02/2015 4:32 PM DINKEY DISPATCHER Pulse 61 09/02/2015 4:32 PM DINKEY DISPATCHER Temperature 36.7 ??C (98 ??F) 09/02/2015 4:32 PM DINKEY DISPATCHER Respiratory Rate - - Oxygen Saturation 94% 09/02/2015 4:32 PM DINKEY DISPATCHER Inhaled Oxygen Concentration - - Weight 141.8 kg (312 lb 9.6 oz) 09/02/2015 4:32 PM DINKEY DISPATCHER Height 182.9 cm (6' 0.01) 09/02/2015 4:32 PM DINKEY DISPATCHER Body Mass Index 42.39 09/02/2015 4:32 PM DINKEY DISPATCHER documented in this encounter Progress Notes Deysi Alicea MD - 09/02/2015 4:23 PM CST ASSESSMENT AND RECOMMENDATIONS: 1. 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 Creatinine stable at 1.4-1.5 mg/dl 2. Diabetes -uncontrolled, in part due to morbid obesity. I will refer patient to weight management clinic to address both. We discussed that some diabetic medications can promote weight loss 3. Immunosuppression management. He was induced with 5 doses of Thymoglobulin as induction and is maintained on tacrolimus and CellCept. Prograf level is therapeutic. He is on full cee of Cellcept (1g bid), but I will not make any changes until patients starts doing his labs more regularly. I have asked his coordinator to send updated lab letter. He should MPA level drawn with the next labwork 4. Hypertension -controlled 5. History of Afib post transplant, resolved; 6. Infection prophylaxis. He was positive for CMV and EBV (donor positive) . REASON FOR VISIT: Follow up on kidney transplant. HISTORY OF PRESENT ILLNESS: This is a very pleasant 65-year-old gentleman with past medical history significant for end-stage renal disease due to diabetic nephropathy, status post extended criteria donor kidney transplant from 59-year-old woman on 02/02/2014. Post transplant course was complicated by slow graft function; He has also developed a new onset atrial fibrillation; he was started on anticoagulationand discharged on Cumadin; Cumadin was stopped by cart driver during the follow up visit, as he wasfound to be in NSR. He is here for follow up visit. His creatinine remains at baseline. He has been struggling with significant weight gain post transplant and his current BMI is 42. He reports increased thirst and polyuria. BS are running high more recenlty , close to 300 mg/dl. HE is aware of diabetic diet but that hasbeen hard to implement. He follows with PCP for diabetes control. Kidney function remains stable. He continues on Prograf and Cellcept 1 g bid. He has no DSA and BK PCR is negative. BP is fluctuating, but mostly controlled. Transplant Hx: Tx: DDKT Date: 02/02/2014 Present Maintenance IS: Tacrolimus and Mycophenolate mofetil Baseline Creatinine: TBD ROS: A comprehensive review of systems was obtained and negative, except as noted in the HPI or PMH. Active Medical Problems: Patient Active Problem List Diagnosis ??? Hyperlipidemia ??? Gout ??? Peripheral neuropathy ??? Diabetic retinopathy ??? Essential hypertension ??? Anemia ??? DM (diabetes mellitus), type 2 ??? History of tobacco use ??? Thrombocytopenia ??? Malaise and fatigue ??? Dialysis patient ??? Depression ??? Organ transplant candidate ??? Screening for cardiovascular condition ??? ESRD (end stage renal disease) on dialysis ??? Atrial fibrillation ??? Immunosuppressed status ??? High risk medication use ??? S/P kidney transplant ??? Kidney replaced by transplant PMH: Medical record was reviewed and PMH was discussed with patient and noted below. Past Medical History Diagnosis Date ??? Diabetes mellitus type II ??? HTN (hypertension) ??? Hyperlipidemia ??? Diabetic peripheral neuropathy 2001 on insulin x 4 years ??? Retinopathy due to secondary diabetes mellitus ??? Gout ??? Anemia ??? Thrombocytopenia ??? Depression ??? Dialysis patient 08/30/2011 ??? Renal disease ESKD PSH: Past Surgical History Procedure Laterality Date ??? 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 Avf right forearm ??? Laser surgery of eye both eyes ??? Cataract iol, rt/lt both eyes ??? Transplant kidney recipient donor 02/02/2014 Procedure: TRANSPLANT KIDNEY RECIPIENT DONOR; Surgeon: Migel Merchant MD; Location: [facility] OR ??? Cystoscopy, remove stent(s), combined 04/01/2014 Procedure: COMBINED CYSTOSCOPY, REMOVE STENT(S); Surgeon: Migel Merchant MD; Location: [facility] OR Family Hx: Family History Problem Relation Age of Onset ??? C.A.D. Father ??? Alzheimer Disease Mother Personal Hx: History Social History ??? Marital Status: Single Spouse Name: N/A Number of Children: N/A ??? 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 Smoking status: Former Smoker -- 5 years Types: Cigars Quit date: 08/22/2006 ??? Smokeless tobacco: Never Used ??? Alcohol Use: 0.0 oz/week 0 drink(s) per week Comment: occasional drink. ??? Drug Use: No ??? Sexual Activity: Not on file Other Topics Concern ??? Blood Transfusions No ??? Seat Belt Yes Social History Narrative Allergies: Allergies Allergen Reactions ??? Lisinopril Medications: Current Outpatient Prescriptions Medication ??? amLODIPine (NORVASC) 10 MG tablet ??? rosuvastatin (CRESTOR) 10 MG tablet ??? sulfamethoxazole-trimethoprim (BACTRIM,SEPTRA) 400-80 MG per tablet ??? mycophenolate (CELLCEPT-BRAND NAME) 250 MG capsule ??? PROGRAF 0.5 MG capsule ??? PROGRAF 1 MG capsule ??? senna-docusate (SENOKOT-S;PERICOLACE) 8.6-50 MG per tablet ??? METOPROLOL TARTRATE PO ??? pantoprazole (PROTONIX) 40 MG enteric coated tablet ??? aspirin 81 MG tablet ??? Cholecalciferol (VITAMIN D PO) ??? Calcium Carbonate-Vitamin D (CALCIUM + D PO) ??? LANTUS VIAL 100 UNITS/ML SC SOLN ??? HumaLOG VIAL 100 UNITS/ML SOLN ??? sertraline (ZOLOFT) 100 MG tablet No current facility-administered medications for this visit. Vitals: There were no vitals taken for this visit. Reviewed. Exam: GENERAL APPEARANCE: alert and no distress HENT: mouth without ulcers or lesions LYMPHATICS: no cervical nodes RESP: lungs clear to auscultation CV: regular rhythm, normal rate, AV fistula left upper extremity, EDEMA: trace LE edema bilaterally ABDOMEN: soft, nondistended, nontender, bowel sounds normal + incision clean and healed, mild bulging around the kidney transplant MS: extremities normal - no gross deformities noted, SKIN: no rash NEURO: grossly non-focal, tremors PSYCH: mentation appears normal and affect normal Results: EY DISPATCHER documented in this encounter Nursing Notes Teresa Medina CMA - 09/02/2015 4:33 PM CST Chief Complaint Patient presents with ??? RECHECK Follow up Kidney TX 02/02/2014 Initial BP 128/72 mmHg Pulse 61 Temp(Src) 98 ??F (36.7 ??C) (Oral) Ht 1.829 m (6' 0.01) Wt 141.794 kg (312 lb 9.6 oz) BMI 42.39 kg/m2 SpO2 94% Estimated body mass index is 42.39 kg/(m^2) as calculated from the following: Height as of this encounter: 1.829 m (6' 0.01). Weight as of this encounter: 141.794 kg (312 lb 9.6 oz). BP completed using cuff size: large EY DISPATCHER documented in this encounter Plan of Treatment Scheduled Referrals Name Type Priority Associated Diagnoses Order S chedule WEIGHT MANAGEMENT/ UMP Referral Routine Morbid obesity due to Ordered: 09/02/2015 LIFESTYLE PROGRAM excess calories (H) REFERRAL documented as of this encounter Visit Diagnoses Diagnosis S/P kidney transplant - Primary Kidney replaced by transplant Morbid obesity due to excess calories (H ) documented in this encounter Care Teams Document Control Supervisor Relationship Specialty Start Date End Date Momo Forbes PCP - General Family Practice 01/02/14 [facility] [address] [place] [address] Ingrid Santana, RN Registered Nurse Transplant 02/10/12 10/01/15 documented as of this encounter
--- OUTSIDE RECORDS SUMMARY | 2022-03-30 18:46 | XMS_ITS | Encounter Summary ---
:1950 Author Organization [place] Address [facility] [place] [address] Care Team Providers Name Role Phone Ingrid Santana RN Unavailable Momo Forbes Primary Care Provider Reason for Visit Reason Onset Date Comments Refill Request 09/06/2014 Dok Plus Encounter Details Date Type Department Care Team Description 09/06/2014 Refill The Transplant Deysi Burns, Refill Request (Dok 2nd Floor, Clinic 2A MD Plus) Tommy Wilburn [facility] Building [address] [place] [id number] [place] [address] [place] [address] Social History Tobacco Use Types [...] this encounter Miscellaneous Notes Telephone Encounter - Aubrey Jackson Geovanni - 09/06/2014 10:48 AM CST Drug Name: Dok Plus Last Fill Date: 02/08/14 Quantity: 100 Michael [facility] [phone] R AND REGULATOR SHOP SUPERVISOR documented in this encounter Plan of Treatment Not on filedocumented as of this encounter Visit Diagnoses Diagnosis S/P kidney transplant - Primary Kidney replaced by transplant documented in this encounter Care Teams Elevator Adjuster Relationship Specialty Start Date End Date Momo Forbes PCP - General Family Practice 01/02/14 [place] [id number] Ingrid Santana, RN Registered Nurse Transplant 02/10/12 10/01/15 documented as of this encounter
--- OUTSIDE RECORDS SUMMARY | 2022-03-30 18:46 | XMS_ITS | Encounter Summary ---
:1950 Author Organization [place] Address [facility] [place] [address] Care Team Providers Name Role Phone Ingrid Santana RN Unavailable Momo Forbes Primary Care Provider Reason for Visit Reason Onset Date Comments Refill Request 02/10/2015 mycophenolate, smz/t mp Encounter Details Date Type Department Care Team Description 02/10/2015 Refill The Transplant Deysi Burns, Refill Request 2nd Floor, Clinic 2A (mycophenolate, Sanders [facility] smz/tmp) Building [address] [place] [address] [place] [address] Social History Tobacco Use Types [...] this encounter Miscellaneous Notes Telephone Encounter - Gayathri Orta - 02/10/2015 1:44 PM CDT Mycophenolate 250mg Last Fill Date: 01/09/15 Last Fill Quantity: 240 [id number] Last Fill Date: 01/09/15 Last Fill Quantity: 31 Gayathri Orta [facility] [address] [facility] [id number] documented in this encounter Plan of Treatment Not on filedocumented as of this encounter Visit Diagnoses Diagnosis S/P kidney transplant - Primary Kidney replaced by transplant documented in this encounter Care Teams Dough Raiser Relationship Specialty Start Date End Date Momo Forbes PCP - General Family Practice 01/02/[address] [address] Ingrid Santana, RN Registered Nurse Transplant 02/10/12 10/01/15 documented as of this encounter
--- OUTSIDE RECORDS SUMMARY | 2022-03-30 18:46 | XMS_ITS | Encounter Summary ---
:1950 Author Organization [place] Address [facility] [place] [address] Care Team Providers Name Role Phone Ingrid Santana RN Unavailable Momo Forbes Primary Care Provider Reason for Visit Reason Onset Date Comments Transplant 12/31/2014 Encounter Details Date Type Department Care Team Description 12/31/2014 Telephone [facility] Transplant [facility] [address] [place] [phone] Social History Tobacco Use Types Packs/Day Years [...] encounter Miscellaneous Notes Telephone Encounter - Deepa Farah - 12/31/2014 10:27 AM CDT Spoke to patient and he will decrease prograf to 1 mg twice per day. documented in this encounter Plan of Treatment Not on filedocumented as of this encounter Visit Diagnoses Not on filedocumented in this encounter Care Teams Slate Mixer Relationship Specialty Start Date End Date Momo Forbes PCP - General Family Practice 01/02/14 [facility] [address] [place] [address] Ingrid Santana, RN Registered Nurse Transplant 02/10/12 10/01/15 documented as of this encounter
--- OUTSIDE RECORDS SUMMARY | 2022-03-30 18:46 | XMS_ITS | Encounter Summary ---
:1950 Author Organization [place] Address [address] [place] [address]. [place] [address] Care Team Providers Name Role Phone Momo Forbes Primary Care Provider Reason for Visit Reason Onset Date Comments Transplant 02/19/2016 refill Encounter Details Date Type Department Care Team Description 02/19/2016 Refill The Transplant Deysi Burns MD Transplant (refill) 2nd Floor, Clinic [id number] [place] [address] [facility] [place] [address] Social History Tobacco Use Types [...] transplant documented in this encounter Care Teams Acoustical Engineer Relationship Specialty Start Date End Date Momo Forbes PCP - General Family Practice 01/02/14 [facility] [address] [place], [place] [phone] documented as of this encounter
--- OUTSIDE RECORDS SUMMARY | 2022-03-30 18:46 | XMS_ITS | Encounter Summary ---
:1950 Author Organization [place] Address [address] [place] [address] Care Team Providers Name Role Phone Ingrid Santana RN Unavailable Momo Forbes Primary Care Provider Reason for Visit Reason Onset Date Comments Medication Question 09/12/2014 Encounter Details Date Type Department Care Team Description 09/12/2014 Telephone [facility] Beny Staton RPH Medication Question 500 [facility] [place] [address] PHARMACY [phone] [place], [place] [phone] Social History Tobacco Use Types Packs/Day Years [...] this encounter Miscellaneous Notes Telephone Encounter - Beny Staton RPH - 09/12/2014 9:49 AM CST Current Outpatient Prescriptions Medication Sig Dispense Refill ??? senna-docusate (SENOKOT-S;PERICOLACE) 8.6-50 MG per tablet Take 2 tablets by mouth daily as needed for constipation 15 tablet 3 ??? PROGRAF 0.5 MG capsule Take 1 capsule (0.5 mg) by mouth 2 times daily (total dose 1.5 mg every 12 hours) 60 capsule 11 ??? PROGRAF 1 MG capsule Take 1 capsule (1 mg) by mouth 2 times daily (total dose 1.5 mg every 12 hours) 60 capsule 11 ??? amLODIPine (NORVASC) 10 MG tablet Take 1 tablet (10 mg) by mouth daily 90 tablet 3 ??? METOPROLOL TARTRATE PO Take 25 mg by mouth 2 times daily ??? pantoprazole (PROTONIX) 40 MG enteric coated tablet Take 1 tablet (40 mg) by mouth daily 30 tablet 1 ??? rosuvastatin (CRESTOR) 10 MG tablet Take 1 tablet (10 mg) by mouth daily 90 tablet 3 ??? aspirin 81 MG tablet Take 1 tablet (81 mg) by mouth daily 180 tablet ??? magnesium oxide (MAG-OX) 400 MG tablet Take 1 tablet (400 mg) by mouth 2 times daily 60 tablet 5 ??? Cholecalciferol (VITAMIN D PO) 5000 1 tab three times per week ??? sulfamethoxazole-trimethoprim (BACTRIM,SEPTRA) 400-80 MG per tablet Take 1 tablet by mouth daily31 tablet 11 ??? mycophenolate (CELLCEPT-BRAND NAME) 250 MG capsule Take 4 capsules (1,000 mg) by mouth 2 times daily 240 capsule 11 ??? Calcium Carbonate-Vitamin D (CALCIUM + D PO) Take 1 tablet by mouth daily (dose unknown) ??? LANTUS VIAL 100 UNITS/ML SC SOLN Inject 15 Units Subcutaneous every evening ??? HumaLOG VIAL 100 UNITS/ML SOLN Inject 3-13 Units Subcutaneous 3 times daily (before meals) Patient reported his dose 10-12 unit 2-3 times daily before meals ??? sertraline (ZOLOFT) 100 MG tablet Take 100 mg by mouth daily. Lab Results Component Value Date TACROL 6.6 08/26/2014 MPACID 1.39 02/25/2014 CR 1.48* 02/25/2014 WBC 4.9 02/25/2014 MAG 1.5* 02/25/2014 PHOS 1.3* 02/25/2014 BP Readings from Last 3 Encounters: 05/14/14 141/65 05/13/14 139/73 08/19/14 163/78 Patient is 7 months post-transplant. Medication adherence plan: med card, pill box Are you having any issues managing your medications? No How many doses of your immunosuppressant medication(s) have you missed in the past month? none Patient's immunosuppression regimen consists of: Mycophenolate Tacrolimus None Patient's prophylactic medications include: Bactrim Were the prophylactic medications completed per protocol? yes he said that pantoprazole was dc'd butit is still on med list Pharmacist assessment of compliance: Good How have you been feeling? good Have you had any hospitalizations/ER visits related to the transplant? No Medication reconciliation/DUR performed? Yes Any discrepancies? No Are you experiencing any side effects? No What questions do you have about the medications you are taking? none How often are you checking your blood pressure at home? A couple of times a week What was your most recent blood pressure reading at home? 145/? Pharmacist assessment/Plan: Adherence: good Side effects: none Blood pressure: a little high suggested that he take it a little more often. He said his dr told himhis bp was good. LESS WATCHER documented in this encounter Plan of Treatment Not on filedocumented as of this encounter Visit Diagnoses Not on filedocumented in this encounter Care Teams Yarn Cleaner Relationship Specialty Start Date End Date Momo Forbes PCP - General Family Practice 01/02/14 [facility] [address] [place] [address] Ingrid Santana, RN Registered Nurse Transplant 02/10/12 10/01/15 documented as of this encounter
--- OUTSIDE RECORDS SUMMARY | 2022-03-30 18:46 | XMS_ITS | Encounter Summary ---
:1950 Author Organization [place] Address [facility] [place] [address] Care Team Providers Name Role Phone Ingrid Santana RN Unavailable Momo Forbes Primary Care Provider Reason for Visit Reason Onset Date Comments Refill Request 06/23/2015 amlodipine Encounter Details Date Type Department Care Team Description 06/23/2015 Refill [facility] [address] Refill Request Physicians Orestes Hernandez MD (amlodipine) [facility] [place] 4th Floor, Clinic [address]B [address] [phone] (Wo rk) [phone] Social History Tobacco Use Types Packs/Day Years [...] this encounter Miscellaneous Notes Telephone Encounter - Ada You - 06/23/2015 11:33 AM CST Amlodipine 5mg tabs Last Written Prescription Date: 04/09/2014 Last Fill Quantity: 90, # refills: 3 Last Office Visit with [facility] primary care provider: 05/14/2014 Future Office Visit: BP Readings from Last 3 Encounters: 05/14/14 141/65 05/13/14 139/73 04/09/14 163/78 Ada You [facility] [phone] TECHNICIAN documented in this encounter Plan of Treatment Not on filedocumented as of this encounter Visit Diagnoses Diagnosis HTN (hypertension) - Primary Unspecified essential hypertension documented in this encounter Care Teams Machine Woodworking Sander Relationship Specialty Start Date End Date Momo Forbes PCP - General Family Practice 01/02/14 [facility] [address] [place] [address] Ingrid Santana, RN Registered Nurse Transplant 02/10/12 10/01/15 documented as of this encounter
--- OUTSIDE RECORDS SUMMARY | 2022-03-30 18:46 | XMS_ITS | Encounter Summary ---
:1950 Author Organization [place] Address [facility] [address] Care Team Providers Name Role Phone Ingrid Santana RN Unavailable Momo Forbes Primary Care Provider Joseph Quintana MD Unavailable Encounter Details Date Type Department Care Team Description 07/25/2014 External Order Results The Transplant Ce nter Nurse, [facility] 2nd Floor, Clinic [address] [phone] Social History Tobacco Use Types Packs/Day Years [...] Associated Diagnosis Comme nts EXTERNAL LAB Routine 07/22/2014 8:22 AM Results f or this RESULTS SHINGLE CATCHER procedure are i n the results section. documented in this encounter Results (ABNORMAL) TXP External Lab Result (07/22/2014 8:22 AM SHINGLE CATCHER) [facility] Sodium 140 135 - 145 LABDE SCAN (External) mmol/L Potassium 4.6 3.5 - 5.0 LABDE SCAN (External) mmol/L Chloride 107 98 - 110 LABDE SCAN (External) mmol/L (External) CO2 (External) 25 21 - 31 LABDE SCAN mmol/L Anion Gap 8 5 - 18 LABDE SCAN (External) Glucose 191 (H) 65 - 100 LABDE SCAN (External) mg/dL Calcium 10.1 8.5 - 10.5 LABDE SCAN (External) mg/dL Urea Nitrogen 25 8 - 25 LABDE SCAN (External) mg/dL Creatinine 1.63 (H) 0.72 - LABDE SCAN (External) 1.25 mg/dL BUN/Creatinine 15 10 - 20 LABDE SCAN Ratio (External) GFR Estimated 52 (L) >60 LABDE SCAN (if ml/min/1.7 Citizen Of [place]) 3m2 (External) GFR Estimated 43 (L) >60 LABDE SCAN (External) ml/min/1.7 3m2 WBC Count 4.6 4.5 - 11.0 LABDE SCAN (External) thou/cu mm RBC Count 4.82 4.30 - LABDE SCAN (External) 5.90 mil/cu mm Hemoglobin 13.7 13.5 - LABDE SCAN (External) 17.5 g/dL Hematocrit 42.2 37.0 - LABDE SCAN (External) 53.0 % MCV (External) 88 80 - 100 LABDE SCAN fL MCH (External) 28.4 26.0 - LABDE SCAN 34.0 pg MCHC (External) 32.5 32.0 - LABDE SCAN 36.0 g/dL RDW (External) 14.7 11.5 - LABDE SCAN 15.5 % Platelet Count 118 (L) 140 - 440 LABDE SCAN (External) thou/cu mm MPV (External) 10.7 6.5 - 11.0 LABDE SCAN fL Specimen (Source) Anatomical Collection Method Collection Time Re ceived Time Location / / Volume Laterality 07/22/2014 8:22 AM SHINGLE CATCHER Narrative [facility] - 07/25/2014 6:19 AM SHINGLE CATCHER Verified by Janee Alexis on 07/25/2014 . Patient Reported LABORATORY Performing Organization Address City/State/ZIP Code Phon e Number [facility] LABDE SCAN documented in this encounter Visit Diagnoses Not on filedocumented in this encounter Care Teams Curriculum Coordinator Relationship Specialty Start Date End Date Momo Forbes PCP - General Family Practice 01/02/14 [facility] [address] [place] [address] Ingrid Santana, RN Registered Nurse Transplant 02/10/12 10/01/15 Joseph Quintana, Assigned Nephrology 03/29/21 MD Provider [address] [place] [address] [address] [place] [address] documented as of this encounter
--- OUTSIDE RECORDS SUMMARY | 2022-03-30 18:46 | XMS_ITS | Encounter Summary ---
:1950 Author Organization [place] Address [address] [place] [address]. [place] [address] Care Team Providers Name Role Phone Momo Forbes Primary Care Provider Reason for Visit Reason Onset Date Comments Transplant 01/16/2016 refill Encounter Details Date Type Department Care Team Description 01/16/2016 Refill The Transplant Deysi Burns MD Transplant (refill) 2nd Floor, Clinic [address]A [phone] [place] [address] [facility] [place] [phone] Social History Tobacco Use Types [...] transplant documented in this encounter Care Teams Insurance Counselor Relationship Specialty Start Date End Date Momo Forbes PCP - General Family Practice 01/02/14 [facility] [address] [place], [place] [phone] documented as of this encounter
--- OUTSIDE RECORDS SUMMARY | 2022-03-30 18:46 | XMS_ITS | Encounter Summary ---
:1950 Author Organization [place] Address [address] [place] [address]. [place] [address] Care Team Providers Name Role Phone Momo Forbes Primary Care Provider Reason for Visit Reason Onset Date Comments Transplant 02/06/2016 refill Encounter Details Date Type Department Care Team Description 02/06/2016 Refill [facility] Cristy Chen LPN T ransplant (refill) Transplant Clinic [address] [place] [phone] Social History Tobacco Use Types Packs/Day [...] documented in this encounter Care Teams Chemical Process Equipment Operator Relationship Specialty Start Date End Date Momo Forbes PCP - General Family Practice 01/02/14 [facility] [address] [place] [address] documented as of this encounter
--- OUTSIDE RECORDS SUMMARY | 2022-03-30 18:46 | XMS_ITS | Encounter Summary ---
:1950 Author Organization [place] Address [address] [place] [address]. [place] [address] Care Team Providers Name Role Phone Ingrid Santana RN Unavailable Momo Forbes Primary Care Provider Encounter Details Date Type Department Care Team Description 10/18/2014 External Order Results The Transplant Ce ntjakob Nurse, [facility] 2nd Floor, Clinic [address]A [address] [phone] Social History Tobacco Use Types Packs/Day [...] Associated Diagnosis Comme nts EXTERNAL LAB Routine 10/17/2014 8:15 AM Results f or this RESULTS OUTREACH COORDINATOR procedure are i n the results section. documented in this encounter Results (ABNORMAL) TXP External Lab Result (10/17/2014 8:15 AM OUTREACH COORDINATOR) Analysis Performed At Patho logist Time Signature Sodium 141 135 - 145 LABDE SCAN (External) mmol/L Potassium 4.7 3.5 - 5.0 LABDE SCAN (External) mmol/L Chloride 107 98 - 110 LABDE SCAN (External) mmol/L (External) CO2 (External) 25 21 - 31 LABDE SCAN mmol/L Anion Gap 9 5 - 18 LABDE SCAN (External) Glucose 244 (H) 65 - 100 LABDE SCAN (External) mg/dL Calcium 10.6 (H) 8.5 - 10.5 LABDE SCAN (External) mg/dL Urea Nitrogen 28 (H) 8 - 25 LABDE SCAN (External) mg/dL Creatinine 1.53 (H) 0.72 - LABDE SCAN (External) 1.25 mg/dL BUN/Creatinine 18 10 - 20 LABDE SCAN Ratio (External) GFR Estimated 56 (L) >60 LABDE SCAN (if ml/min/1.7 [place]ian) 3m2 (External) GFR Estimated 46 (L) >60 LABDE SCAN (External) ml/min/1.7 3m2 WBC Count 3.9 (L) 4.5 - 11.0 LABDE SCAN (External) thou/cu mm RBC Count 5.00 4.30 - LABDE SCAN (External) 5.90 mil/cu mm Hemoglobin 14.5 13.5 - LABDE SCAN (External) 17.5 g/dL Hematocrit 43.6 37.0 - LABDE SCAN (External) 53.0 % MCV (External) 87 80 - 100 LABDE SCAN fL MCH (External) 29.0 26.0 - LABDE SCAN 34.0 pg MCHC (External) 33.3 32.0 - LABDE SCAN 36.0 g/dL RDW (External) 14.2 11.5 - LABDE SCAN 15.5 % Platelet Count 111 (L) 140 - 440 LABDE SCAN (External) thou/cu mm MPV (External) 11.3 (H) 6.5 - 11.0 LABDE SCAN fL Specimen (Source) Anatomical Collection Method Collection Time Re ceived Time Location / / Volume Laterality 10/17/2014 8:15 AM OUTREACH COORDINATOR Narrative [facility] - 10/18/2014 8:50 AM OUTREACH COORDINATOR Verified by Maribel Plunkett on 10/18/19 15. Patient Reported LABORATORY Performing Organization Address City/State/ZIP Code Phon e Number [facility] LABDE SCAN documented in this encounter Visit Diagnoses Not on filedocumented in this encounter Care Teams Commercial Appraiser Relationship Specialty Start Date End Date Momo Forbes PCP - General Family Practice 01/02/14 [facility] [address] [place] [address] Ingrid Santana, RN Registered Nurse Transplant 02/10/12 10/01/15 documented as of this encounter
--- OUTSIDE RECORDS SUMMARY | 2022-03-30 18:46 | XMS_ITS | Encounter Summary ---
:1950 Author Organization [place] Address [facility] [place] [address] Care Team Providers Name Role Phone Ingrid Santana RN Unavailable Momo Forbes Primary Care Provider Joseph Quintana MD Unavailable Encounter Details Date Type Department Care Team Description 08/14/2015 External Order Results The Transplant Ce nter Nurse, [facility] 2nd Floor, Clinic [address]A [address] [phone] Social History Tobacco Use Types Packs/Day Years [...] Associated Diagnosis Comme nts EXTERNAL LAB Routine 08/12/2015 4:41 PM Results f or this RESULTS GEOMATICS PROFESSOR procedure are i n the results section. documented in this encounter Results (ABNORMAL) TXP External Lab Result (08/12/2015 4:41 PM GEOMATICS PROFESSOR) [facility] Time Signature Sodium 135 135 - 145 LABDE SCAN (External) mmol/L Potassium 4.6 3.5 - 5.0 LABDE SCAN (External) mmol/L Chloride 107 98 - 110 LABDE SCAN (External) mmol/L (External) CO2 (External) 21 21 - 31 LABDE SCAN mmol/L Anion Gap 7 5 - 18 LABDE SCAN (External) Glucose 301 (H) 65 - 100 LABDE SCAN (External) mg/dL Calcium 10.2 8.5 - 10.5 LABDE SCAN (External) mg/dL Urea Nitrogen 24 8 - 25 LABDE SCAN (External) mg/dL Creatinine 1.46 (H) 0.72 - LABDE SCAN (External) 1.25 mg/dL BUN/Creatinine 16 10 - 20 LABDE SCAN Ratio (External) GFR Estimated 59 (L) >60 LABDE SCAN (if mL/min/1.7 Salvadorean) 3/m2 (External) GFR Estimated 48 (L) >60 LABDE SCAN (External) mL/min/1.7 3/m2 Protein Total 16 (H) 1 - 14 LABDE SCAN Ur (External) mg/dL Creatinine 74.2 63.0 - LABDE SCAN Urine mg/dL 166.0 (External) mg/dL Protein Total 0.2 LABDE SCAN Ur per Cr (External) WBC Count 5.7 4.5 - 11.0 LABDE SCAN (External) thou/cu mm RBC Count 5.02 4.3 - 5.9 LABDE SCAN (External) mil/cu mm Hemoglobin 14.6 13.5 - LABDE SCAN (External) 17.5 g/dL Hematocrit 42.5 37.0 - LABDE SCAN (External) 53.0 % MCV (External) 85 80 - 100 LABDE SCAN fL MCH (External) 29.1 26.0 - LABDE SCAN 34.0 pg MCHC (External) 34.4 32.0 - LABDE SCAN 36.0 g/dL RDW (External) 14.1 11.5 - LABDE SCAN 15.5 % Platelet Count 119 (L) 140 - 440 LABDE SCAN (External) thou/cu mm MPV (External) 10.5 6.5 - 11.0 LABDE SCAN fL Hemoglobin A1C 8.1 (H) <=6.4 % LABDE SCAN (External) Specimen (Source) Anatomical Collection Method Collection Time Re ceived Time Location / / Volume Laterality 08/12/2015 4:41 PM GEOMATICS PROFESSOR Narrative [facility] - 08/14/2015 9:25 AM GEOMATICS PROFESSOR Verified by Freddy Mehta on 08/14. Patient Reported LABORATORY Performing Organization Address City/State/ZIP Code Phon e Number [facility] LABDE SCAN documented in this encounter Visit Diagnoses Not on filedocumented in this encounter Care Teams Bakery Manager Relationship Specialty Start Date End Date Momo Forbes PCP - General Family Practice 01/02/14 [facility] [address] [place] [address] Ingrid Santana, RN Registered Nurse Transplant 02/10/12 10/01/15 Joseph Quintana, Assigned Nephrology 03/29/21 MD Provider [address] [place] [address] [address] [facility] [address] [place] [address] documented as of this encounter
--- OUTSIDE RECORDS SUMMARY | 2022-03-30 18:46 | XMS_ITS | Encounter Summary ---
:1950 Author Organization [place] Address [address] [place] [address] Care Team Providers Name Role Phone Ingrid Santana RN Unavailable Momo Forbes Primary Care Provider Reason for Visit Reason Onset Date Comments Medication Question 10/11/2014 Encounter Details Date Type Department Care Team Description 10/11/2014 Telephone [facility] Beny Staton RPH Medication Question 500 [facility] [place] [address] PHARMACY [phone] [place], [place] [phone] Social History Tobacco Use Types Packs/Day Years [...] Telephone Encounter - Beny Staton RPH - 10/11/2014 12:33 PM CST Current Outpatient Prescriptions Medication Sig Dispense [...] daily. Lab Results Component Value Date TACROL 7.4 10/03/2014 MPACID 1.39 02/25/2014 CR 1.48* 02/25/2014 WBC 4.9 02/25/2014 MAG 1.5* 02/25/2014 PHOS 1.3* 02/25/2014 BP Readings from Last 3 Encounters: 05/14/14 141/65 05/13/14 139/73 08/19/14 163/78 Patient is 8 months post-transplant. Medication adherence plan: medcard pillbox Are you having any issues managing your medications? No How many doses of your immunosuppressant medication(s) have you missed in the past month? none Patient's immunosuppression regimen consists of: Mycophenolate Tacrolimus Patient's prophylactic medications include: Bactrim Pantoprazole Were the prophylactic medications completed per protocol? yes Pharmacist assessment of compliance: Good How have you been feeling? good Have you had any hospitalizations/ER visits related to the transplant? No Medication reconciliation/DUR performed? Yes Any discrepancies? No Are you experiencing any side effects? No What questions do you have about the medications you are taking? no How often are you checking your blood pressure at home? Couple times a week What was your most recent blood pressure reading at home? 180/80 Pharmacist assessment/Plan: Adherence: good Side effects: none Blood pressure: He said that the same day he 180/80 at home it was 124/[address]. I suggested that he have his machine checked out. I also suggested that he take his bp more often especially first thing in the morning and make sure he has not done any strenuous activity before he checks it. Beny Staton [facility] Specialty Pharmacist [phone] S CUTTER documented in this encounter Plan of Treatment Not on filedocumented as of this encounter Visit Diagnoses Not on filedocumented in this encounter Care Teams Shower Room Attendant Relationship Specialty Start Date End Date Momo Forbes PCP - General Family Practice 01/02/14 [facility] [address] [place] [address] Ingrid Santana, RN Registered Nurse Transplant 02/10/12 10/01/15 documented as of this encounter
--- OUTSIDE RECORDS SUMMARY | 2022-03-30 18:46 | XMS_ITS | Encounter Summary ---
:1950 Author Organization [place] Address [address] [facility] [place] [address] Care Team Providers Name Role Phone Ingrid Santana RN Unavailable Momo Forbes Primary Care Provider Reason for Visit Reason Onset Date Comments Medication Question 07/26/2014 Encounter Details Date Type Department Care Team Description 07/26/2014 Telephone PHARMACY Duncan, Fina, [facility] Medication Question [address] [facility] [place] [address] [address] [facility] [phone] [place] [address] Social History Tobacco Use Types Packs/Day Years [...] Miscellaneous Notes Telephone Encounter - Beny Staton - 07/26/2014 2:47 PM CST Current Outpatient Prescriptions Medication Sig Dispense Refill ??? PROGRAF 1 MG capsule Take 2 capsules (2 mg) by mouth 2 times daily 120 capsule 6 ??? amLODIPine (NORVASC) 10 MG tablet Take [...] 2 times daily 240 capsule 11 ??? senna-docusate (SENOKOT-S;PERICOLACE) 8.6-50 MG per tablet Take 2 tablets by mouth daily as needed for constipation 15 tablet 0 ??? Calcium Carbonate-Vitamin D (CALCIUM + D [...] daily. Lab Results Component Value Date TACROL 10.8 07/22/2014 MPACID 1.39 02/25/2014 CR 1.48* 02/25/2014 WBC 4.9 02/25/2014 MAG 1.5* 02/25/2014 PHOS 1.3* 02/25/2014 BP Readings from Last 3 Encounters: 05/14/14 141/65 05/13/14 139/73 04/09/14 163/78 Patient is 6 months post-transplant. Medication adherence plan: med card and pill box Are you having any issues managing your medications? No How many doses of your immunosuppressant medication(s) have you missed in the past month? none Patient's immunosuppression regimen consists of: Mycophenolate Tacrolimus None Patient's prophylactic medications include: Bactrim Pantoprazole Were the prophylactic medications completed per protocol? no Pharmacist assessment of compliance: Good How have you been feeling? good Have you had any hospitalizations/ER visits related to the transplant? No Medication reconciliation/DUR performed? Yes Any discrepancies? No Are you experiencing any side effects? No What questions do you have about the medications you are taking? none How often are you checking your blood pressure at home? daily What was your most recent blood pressure reading at home? 145/80 Pharmacist assessment/Plan: Adherence: good Side effects: none Blood pressure: a little high pt will monitor closely Additional comments: doing very well healthy and happy Beny Staton [facility] Specialty Pharmacist [phone] ECONOMIST documented in this encounter Plan of Treatment Not on filedocumented as of this encounter Visit Diagnoses Not on filedocumented in this encounter Care Teams Professional Programmer Analyst Relationship Specialty Start Date End Date Momo Forbes PCP - General Family Practice 01/02/14 [facility] [address] [place] [address] Ingrid Santana, RN Registered Nurse Transplant 02/10/12 10/01/15 documented as of this encounter
--- OUTSIDE RECORDS SUMMARY | 2022-03-30 18:46 | XMS_ITS | Encounter Summary ---
:1950 Author Organization [place] Address [address] [address] Care Team Providers Name Role Phone Ingrid Santana RN Unavailable Momo Forbes Primary Care Provider Encounter Details Date Type Department Care Team Description 09/22/2014 Orders Only [facility], [facility], [facility] jm [place] [address] [phone] [place] [address] 914 [place] [address] (Wo rk) Social History Tobacco [...] Associated Comments Diagnosis TACROLIMUS BY TANDEM Routine 10/17/2014 8:15 AM R esults for this MASS SPECTROMETRY MORTGAGE PROCESSING MANAGER procedure are in the results section. TACROLIMUS BY TANDEM Routine 10/03/2014 8:30 AM R esults for this MASS SPECTROMETRY MORTGAGE PROCESSING MANAGER procedure are in the results section. documented in this encounter Results Tacrolimus level (10/17/2014 8:15 AM MORTGAGE PROCESSING MANAGER) [facility] Method Time Signature Tacrolimus Last 2029 [facility] Dose 10/16/14 [facility] Tacrolimus 9.2 5.0 - [facility] Level 15.0 ug/L [facility] Comment: Tacrolimus Reference Range Kidney Transplant [...] its perform ance characteristics determined by the [facility], ??Special Chemistry Laboratory. It has not been cleared or approved by the FDA . The laboratory is regulated under CLIA as qualified to perform high-complexity testing. This test is used for clinical purposes. It should not be regarded as investigational or for research. Specimen Anatomical Collection Method Collection Time Receive d Time (Source) Location / / Volume Laterality 10/17/2014 8:15 AM 5 MORTGAGE PROCESSING MANAGER 11:17 AM MORTGAGE PROCESSING MANAGER Mingo Dangelo MD LAB - BLOOD ORDERABLES Performing Organization Address City/State/ZIP Code Phon e Number [facility] [address] [place] [address] [facility] Tacrolimus level (10/03/2014 8:30 AM MORTGAGE PROCESSING MANAGER) [facility] gist Method Time Signature Tacrolimus Last 10/02/14 [facility] Dose 2030 [facility] Tacrolimus 7.4 5.0 - [facility] Level 15.0 ug/L [facility] Comment: Tacrolimus Reference Range Kidney Transplant [...] its perform ance characteristics determined by the [facility], ??Special Chemistry Laboratory. It has not been cleared or approved by the FDA . The laboratory is regulated under CLIA as qualified to perform high-complexity testing. This test is used for clinical purposes. It should not be regarded as investigational or for research. Specimen Anatomical Collection Method Collection Time Receive d Time (Source) Location / / Volume Laterality 10/03/2014 8:30 AM 5 MORTGAGE PROCESSING MANAGER 11:09 AM MORTGAGE PROCESSING MANAGER Mingo Dangelo MD LAB - BLOOD ORDERABLES Performing Organization Address City/State/[facility] Code Phon e Number [facility] [address] documented in this encounter Visit Diagnoses Not on filedocumented in this encounter Care Teams Nutritionalist Relationship Specialty Start Date End Date Momo Forbes PCP - General Family Practice 01/02/14 [facility] [address] [place] [address] Ingrid Santana, RN Registered Nurse Transplant 02/10/12 10/01/15 documented as of this encounter
--- OUTSIDE RECORDS SUMMARY | 2022-03-30 18:46 | XMS_ITS | Encounter Summary ---
:1950 Author Organization [place] Address [facility] [place] [address] Care Team Providers Name Role Phone Ingrid Santana RN Unavailable Momo Forbes Primary Care Provider Joseph Quintana MD Unavailable Encounter Details Date Type Department Care Team Description 07/31/2014 External Order Results The Transplant Ce nter Nurse, [facility] 2nd Floor, Clinic [address] [phone] Social History Tobacco Use Types Packs/Day Years [...] Associated Diagnosis Comme nts EXTERNAL LAB Routine 07/29/2014 8:25 AM Results f or this RESULTS SILICA DRY PRESS HELPER procedure are i n the results section. documented in this encounter Results (ABNORMAL) TXP External Lab Result (07/29/2014 8:25 AM SILICA DRY PRESS HELPER) [facility] Method Time Signature Sodium (External) 138 135 - 145 [facility]AN mmol/L Potassium 4.5 3.5 - 5.0 LABDE SCAN (External) mmol/L Chloride 109 98 - 110 [facility] (External) mmol/L (External) CO2 (External) 23 21 - 31 [facility] mmol/L Anion Gap 6 5 - 18 [facility] (External) Glucose 196 (H) 65 - 100 [facility] (External) mg/dL Calcium 10.0 8.5 - 10.5 LAB[facility] SCAN (External) mg/dL Urea Nitrogen 22 8 - 25 [facility] SCAN (External) mg/dL Creatinine 1.42 (H) 0.72 - 1.25 [facility]AN (External) mg/dL BUN/Creatinine 15 10 - 20 [facility] Ratio (External) GFR Estimated (if >60 >60 [facility] SCAN ) ml/min/1.73 (External) m2 GFR Estimated 50 (L) >60 [facility] SCAN (External) ml/min/1.73 m2 Albumin 4.2 3.2 - 4.6 LABDE SCAN (External) g/dL Protein Total 6.7 6.0 - 8.0 [facility] SCAN (External) g/dL Bilirubin Total 0.9 0.2 - 1.2 [facility] SCAN (External) mg/dL Bilirubin Direct 0.4 0.1 - 0.5 [facility] SCAN (External) mg/dL Alk Phosphatase 101 50 - 136 [facility]AN (External) IU/L ALT (External) 18 8 - 45 IU/L [facility]AN AST (External) 12 2 - 40 IU/L [facility] Cholesterol 100 100 - 199 [facility] SCAN (External) mg/dL Triglycerides 64 <150 mg/dL [facility] SCAN (External) LDL-Cholesterol 49 <=130 mg/dL [facility] SCAN (External) Protein Albumin 14 1 - 14 [facility] SCAN Ur (External) mg/dL Creatinine Urine 81.0 63.0 - LABDE SCAN mg/dL (External) 166.0 mg/dL Protein Total Ur 0.2 LABDE SCAN per Cr (External) WBC Count 4.2 (L) 4.5 - 11.0 LABDE SCAN (External) thou/cu mm RBC Count 4.67 4.30 - 5.90 LABDE SCAN (External) mil/cu mm Hemoglobin 13.3 (L) 13.5 - 17.5 LABDE SCAN (External) g/dL Hematocrit 40.6 37.0 - 53.0 LABDE SCAN (External) % MCV (External) 87 80 - 100 fL LABDE SCAN MCH (External) 28.5 26.0 - 34.0 [facility] SCAN pg MCHC (External) 32.8 32.0 - 36.0 [facility] SCAN g/dL RDW (External) 14.4 11.5 - 15.5 LABDE SCAN % Platelet Count 109 (L) 140 - 440 [facility] SCAN (External) thou/cu mm MPV (External) 10.6 6.5 - 11.0 LAB[facility] SCAN fL Hep B Surface Agn 38.75 >=12.00 LABDE SCAN (External) mIU/mL Hepatitis B Core Non-Reactiv Non-Reactiv LABDE [facility] N Shaye (External) e e BK Virus Quant None None LABDE SCAN Rapid PCR detected detected (External) Hepatitis C Non-Reactiv Non-Reactiv LABDE SCAN Antibody e e (External) HDL Cholesterol 38 (L) >40 mg/dL LAB[facility] SCAN (External) Specimen (Source) Anatomical Collection Method Collection Time Re ceived Time Location / / Volume Laterality 07/29/2014 8:25 AM SILICA DRY PRESS HELPER Narrative [facility] - 07/31/2014 2:47 PM SILICA DRY PRESS HELPER Verified by Nazia Duncan on 07/31/2014. Verified by Freddy Mehta on 07/31. Patient Reported LABORATORY Performing Organization Address City/State/ZIP Code Phon e Number [facility]DE SCAN documented in this encounter Visit Diagnoses Not on filedocumented in this encounter Care Teams Director It Project Relationship Specialty Start Date End Date Momo Forbes PCP - General Family Practice 01/02/14 [facility] [address] [place] [address] Ingrid Santana, RN Registered Nurse Transplant 02/10/12 10/01/15 Joseph Quintana, Assigned Nephrology 03/29/21 MD Provider 7 [facility] [address] [facility] [address] [place] [address] documented as of this encounter
--- OUTSIDE RECORDS SUMMARY | 2022-03-30 18:46 | XMS_ITS | Encounter Summary ---
:1950 Author Organization [place] Address [address] [place] [address] Care Team Providers Name Role Phone Ingrid Santana RN Unavailable Momo Forbes Primary Care Provider Encounter Details Date Type Department Care Team Description 10/20/2014 Orders Only [facility], Joseph Conor count includes the [facility], [facility] jm [place] [address] [phone] [place] [address] [address] [place] [address] (Wo rk) Social History Tobacco [...] Associated Comments Diagnosis TACROLIMUS BY TANDEM Routine 11/05/2014 8:29 AM R esults for this MASS SPECTROMETRY CDT procedure are in the results section. documented in this encounter Results Tacrolimus level (11/05/2014 8:29 AM CDT) Patholo gist Method Time Signature Tacrolimus Last 2030, [facility] Dose 11/04/14 [facility] Tacrolimus 7.7 5.0 - [facility] 15.0 ug/L [facility] Comment: Tacrolimus Reference Range Kidney Transplant [...] its perform ance characteristics determined by the [facility], ??Special Chemistry Laboratory. It has not been cleared or approved by the FDA . The laboratory is regulated under CLIA as qualified to perform high-complexity testing. This test is used for clinical purposes. It should not be regarded as investigational or for research. Specimen Anatomical Collection Method Collection Time Receive d Time (Source) Location / / Volume Laterality 11/05/2014 8:29 AM 5 CDT 11:26 AM CDT Mingo Dangelo MD LAB - BLOOD ORDERABLES Performing Organization Address City/State/ZIP Code Phon e Number [facility] [address] documented in this encounter Visit Diagnoses Not on filedocumented in this encounter Care Teams Gardening Instructor Relationship Specialty Start Date End Date Momo Forbes PCP - General Family Practice 01/02/14 [facility] [address] [place] [address] Ingrid Santana, RN Registered Nurse Transplant 02/10/12 10/01/15 documented as of this encounter
--- OUTSIDE RECORDS SUMMARY | 2022-03-30 18:46 | XMS_ITS | Encounter Summary ---
:1950 Author Organization [place] Address [facility] [place] [address] Care Team Providers Name Role Phone Ingrid Santana RN Unavailable Momo Forbes Primary Care Provider Encounter Details Date Type Department Care Team Description 12/27/2014 External Order Results The Transplant Ce krish Nurse, [facility] 2nd Floor, Clinic [address] [phone] Social History Tobacco Use Types [...] Associated Diagnosis Comme nts EXTERNAL LAB Routine 12/25/2014 9:48 AM Results f or this RESULTS CDT procedure are i n the results section. documented in this encounter Results (ABNORMAL) TXP External Lab Result (12/25/2014 9:48 AM CDT) [facility] Method Time Signature Sodium 138 135 - 145 LAB[facility] SCAN (External) mmol/L Potassium 5.0 3.5 - 5.0 LABDE SCAN (External) mmol/L Chloride 105 98 - 110 [facility]AN (External) mmol/L (External) CO2 (External) 23 21 - 31 [facility] SCAN mmol/L Anion Gap 10 5 - 18 [facility]DE SCAN (External) Glucose 273 (H) 65 - 100 LAB[facility] SCAN (External) mg/dL Calcium 10.3 8.5 - LABDE SCAN (External) 10.5 mg/dL Urea Nitrogen 26 (H) 8 - 25 [facility]DE SCAN (External) mg/dL Creatinine 1.66 (H) 0.72 - LABDE SCAN (External) 1.25 mg/dL BUN/Creatinine 16 10 - 20 [facility] SCAN Ratio (External) GFR Estimated 51 (L) >60 LABDE SCAN (if ml/min/1. [place]inean) 73m2 (External) GFR Estimated 42 (L) >60 LABDE SCAN (External) ml/min/1. 73m2 WBC Count 4.2 (L) 4.5 - LABDE SCAN (External) 11.0 thou/cu mm RBC Count 5.20 4.30 - LABDE SCAN (External) 5.90 mil/cu mm Hemoglobin 15.0 13.5 - LABDE SCAN (External) 17.5 g/dL Hematocrit 44.1 37.0 - LABDE SCAN (External) 53.0 % MCV (External) 85 80 - 100 LABDE SCAN fL MCH (External) 28.8 26.0 - LABDE SCAN 34.0 pg MCHC 34.0 32.0 - LABDE SCAN (External) 36.0 g/dL RDW (External) 14.0 11.5 - LABDE SCAN 15.5 % Platelet Count 99 (L) 140 - 440 LABDE SCAN (External) thou/cu mm MPV (External) 10.8 6.5 - LABDE SCAN 11.0 fL BK Virus None LABDE SCAN Interp detected (External) Specimen (Source) Anatomical Collection Method Collection Time Re ceived Time Location / / Volume Laterality 12/25/2014 9:48 AM CDT Narrative [facility] - 12/27/2014 9:12 AM CDT Verified by Josseline Womack on 015. Patient Reported LABORATORY Performing Organization Address City/State/ZIP Code Phon e Number [facility]DE SCAN documented in this encounter Visit Diagnoses Not on filedocumented in this encounter Care Teams Retail Security Professional Relationship Specialty Start Date End Date Momo Forbes PCP - General Family Practice 01/02/14 [facility] [address] [place] [address] Ingrid Santana, RN Registered Nurse Transplant 02/10/12 10/01/15 documented as of this encounter
--- OUTSIDE RECORDS SUMMARY | 2022-03-30 18:46 | XMS_ITS | Encounter Summary ---
:1950 Author Organization [place] Address [address] [place] [address] Care Team Providers Name Role Phone Ingrid Santana RN Unavailable Momo Forbes Primary Care Provider Encounter Details Date Type Department Care Team Description 08/22/2014 Orders Only [facility], Joseph Conor [facility], [facility] jm [place] [address] [phone] [place] [address] 926 [place] [address] (Wo rk) Social History Tobacco [...] Associated Comments Diagnosis TACROLIMUS BY TANDEM Routine 08/26/2014 10:21 Res ults for this MASS SPECTROMETRY AM MAJOR ASSEMBLY LINEMAN procedure are in the results section. documented in this encounter Results Tacrolimus level (08/26/2014 10:21 AM MAJOR ASSEMBLY LINEMAN) Patholo gist Method Time Signature Tacrolimus Last 08/25/14 [facility] Dose 2030 [facility] Tacrolimus 6.6 5.0 - [facility] 15.0 ug/L [facility] Comment: Tacrolimus Reference Range Kidney [...] its perform ance characteristics determined by the [facility], ??Special Chemistry Laboratory. It has not been cleared or approved by the FDA . The laboratory is regulated under CLIA as qualified to perform high-complexity testing. This test is used for clinical purposes. It should not be regarded as investigational or for research. Specimen Anatomical Collection Method Collection Time Receive d Time (Source) Location / / Volume Laterality 08/26/2014 10:21 08/28/2014 AM MAJOR ASSEMBLY LINEMAN 11:34 AM MAJOR ASSEMBLY LINEMAN Mingo Dangelo MD LAB - BLOOD ORDERABLES Performing Organization Address City/State/ZIP Code Phon e Number [facility] [address] documented in this encounter Visit Diagnoses Not on filedocumented in this encounter Care Teams Stone Layout Marker Relationship Specialty Start Date End Date Momo Forbes PCP - General Family Practice 01/02/14 [facility] [address] [place] [address] Ingrid Santana, RN Registered Nurse Transplant 02/10/12 10/01/15 documented as of this encounter
--- OUTSIDE RECORDS SUMMARY | 2022-03-30 18:46 | XMS_ITS | Encounter Summary ---
:1950 Author Organization [place] Address [facility] [place] [address] Care Team Providers Name Role Phone Ingrid Santana RN Unavailable Momo Forbes Primary Care Provider Joseph Quintana MD Unavailable Encounter Details Date Type Department Care Team Description 08/06/2014 External Order Results The Transplant Ce nter Nurse, [facility] 2nd Floor, Clinic [address] [phone] Social History Tobacco Use Types Packs/Day Years [...] Associated Diagnosis Comme nts EXTERNAL LAB Routine 08/05/2014 8:39 AM Results f or this RESULTS TORTS LAW PROFESSOR procedure are i n the results section. documented in this encounter Results (ABNORMAL) TXP External Lab Result (08/05/2014 8:39 AM TORTS LAW PROFESSOR) [facility] Sodium 137 135 - 145 LABDE SCAN (External) mmol/L Potassium 4.9 3.5 - 5.0 LABDE SCAN (External) mmol/L Chloride 109 98 - 110 [facility] SCAN (External) mmol/L (External) CO2 (External) 21 21 - 31 [facility] SCAN mmol/L Anion Gap 7 5 - 18 LABDE SCAN (External) Glucose 241 (H) 65 - 100 LAB[facility] SCAN (External) mg/dL Calcium 10.0 8.5 - 10.5 LABDE SCAN (External) mg/dL Urea Nitrogen 26 (H) 8 - 25 LABDE SCAN (External) mg/dL Creatinine 1.56 (H) 0.72 - LABDE SCAN (External) 1.25 mg/dL BUN/Creatinine 17 10 - 20 LABDE SCAN Ratio (External) GFR Estimated 55 (L) >60 LABDE SCAN (if ml/min/1.7 Peruvian) 3m2 (External) GFR Estimated 45 (L) >60 LABDE SCAN (External) ml/min/1.7 3m2 WBC Count 4.6 4.5 - 11.0 LABDE SCAN (External) thou/cu mm RBC Count 4.67 4.30 - LABDE SCAN (External) 5.90 mil/cu mm Hemoglobin 13.4 (L) 13.5 - LABDE SCAN (External) 17.5 g/dL Hematocrit 41.3 37.0 - LABDE SCAN (External) 53.0 % MCV (External) 88 80 - 100 LABDE SCAN fL MCH (External) 28.7 26.0 - LABDE SCAN 34.0 pg MCHC (External) 32.4 32.0 - LABDE SCAN 36.0 g/dL RDW (External) 14.6 11.5 - LABDE SCAN 15.5 % Platelet Count 106 (L) 140 - 440 LABDE SCAN (External) thou/cu mm MPV (External) 10.9 6.5 - 11.0 LABDE SCAN fL Specimen (Source) Anatomical Collection Method Collection Time Re ceived Time Location / / Volume Laterality 08/05/2014 8:39 AM TORTS LAW PROFESSOR Narrative [facility] - 08/06/2014 7:40 AM TORTS LAW PROFESSOR Verified by Mary Whitehead on 08/06/2014. Patient Reported LABORATORY Performing Organization Address City/State/ZIP Code Phon e Number [facility]DE SCAN documented in this encounter Visit Diagnoses Not on filedocumented in this encounter Care Teams Hydraulic Operator Relationship Specialty Start Date End Date Momo Forbes PCP - General Family Practice 01/02/14 [facility] [address] [place] [address] Ingrid Santana, RN Registered Nurse Transplant 02/10/12 10/01/15 Joseph Quintana, Assigned Nephrology 03/29/21 MD Provider [address] [place] [address] 1932 [place], [place] [id number] documented as of this encounter
--- OUTSIDE RECORDS SUMMARY | 2022-03-30 18:46 | XMS_ITS | Encounter Summary ---
:1950 Author Organization [place] Address [address] [place] [address]. [place] [address] Care Team Providers Name Role Phone Ingrid Santana RN Unavailable Momo Forbes Primary Care Provider Encounter Details Date Type Department Care Team Description 10/04/2014 External Order Results The Transplant Ce ntjakob Nurse, [facility] 2nd Floor, Clinic [address] [phone] Social History Tobacco Use Types [...] Associated Diagnosis Comme nts EXTERNAL LAB Routine 10/03/2014 8:33 AM Results f or this RESULTS CISCO UNIFIED COMMUNICATIONS ENGINEER procedure are i n the results section. documented in this encounter Results (ABNORMAL) TXP External Lab Result (10/03/2014 8:33 AM CISCO UNIFIED COMMUNICATIONS ENGINEER) Analysis Performed At Patho logist Time Signature Sodium 141 135 - 145 LABDE SCAN (External) mmol/L Potassium 4.2 3.5 - 5.0 LABDE SCAN (External) mmol/L Chloride 110 98 - 110 LABDE SCAN (External) mmol/L (External) CO2 (External) 23 21 - 31 LABDE SCAN mmol/L Anion Gap 8 5 - 18 LABDE SCAN (External) Glucose 291 (H) 65 - 100 LABDE SCAN (External) mg/dL Calcium 10.1 8.5 - 10.5 LABDE SCAN (External) mg/dL Urea Nitrogen 23 8 - 25 LABDE SCAN (External) mg/dL Creatinine 1.50 (H) 0.72 - LABDE SCAN (External) 1.25 mg/dL BUN/Creatinine 15 10 - 20 LABDE SCAN Ratio (External) GFR Estimated 57 (L) >60 LABDE SCAN (if ml/min/1.7 Danish) 3m2 (External) GFR Estimated 47 (L) >60 LABDE SCAN (External) ml/min/1.7 3m2 WBC Count 3.7 (L) 4.5 - 11.0 LABDE SCAN (External) thou/cu mm RBC Count 4.70 4.30 - LABDE SCAN (External) 5.90 mil/cu mm Hemoglobin 13.4 (L) 13.5 - LABDE SCAN (External) 17.5 g/dL Hematocrit 40.7 37.0 - LABDE SCAN (External) 53.0 % MCV (External) 87 80 - 100 LABDE SCAN fL MCH (External) 28.5 26.0 - LABDE SCAN 34.0 pg MCHC (External) 32.9 32.0 - LABDE SCAN 36.0 g/dL RDW (External) 14.4 11.5 - LABDE SCAN 15.5 % Platelet Count 100 (L) 140 - 440 LABDE SCAN (External) thou/cu mm MPV (External) 10.6 6.5 - 11.0 LABDE SCAN fL Specimen (Source) Anatomical Collection Method Collection Time Re ceived Time Location / / Volume Laterality 10/03/2014 8:33 AM CISCO UNIFIED COMMUNICATIONS ENGINEER Narrative [facility] - 10/04/2014 8:51 AM CISCO UNIFIED COMMUNICATIONS ENGINEER Verified by Josseline Palma on 5. Patient Reported LABORATORY Performing Organization Address City/State/ZIP Code Phon e Number [facility] LABDE SCAN documented in this encounter Visit Diagnoses Not on filedocumented in this encounter Care Teams Motion Picture Set Worker Relationship Specialty Start Date End Date Momo Forbes PCP - General Family Practice 01/02/14 [facility] [address] [place] [phone] Ingrid Santana, RN Registered Nurse Transplant 02/10/12 10/01/15 documented as of this encounter
--- OUTSIDE RECORDS SUMMARY | 2022-03-30 18:46 | XMS_ITS | Encounter Summary ---
:1950 Author Organization [place] Address [address] [place] [address] Care Team Providers Name Role Phone Ingrid Santana RN Unavailable Momo Forbes Primary Care Provider Encounter Details Date Type Department Care Team Description 07/22/2015 Orders Only [facility] Dereck Dangelo MD [facility] 420 [facility] 195 500 [place], [place] [id number] [place] [address] [phone] Social History Tobacco Use Types Packs/Day Years [...] Associated Comments Diagnosis TACROLIMUS BY TANDEM Routine 08/12/2015 4:35 PM R esults for this MASS SPECTROMETRY ROAD MARKER procedure are in the results section. documented in this encounter Results Tacrolimus level (08/12/2015 4:[address]ER) [facility] Method Time Signature Tacrolimus Last 0700 [facility] Dose 08/12/15 [facility] Tacrolimus 5.3 5.0 - [facility] Level 15.0 ug/L [facility] Comment: Tacrolimus Reference Range Kidney Transplant Pediatric [...] its perform ance characteristics determined by the [facility], ??Special Chemistry Laboratory. It has not been cleared or approved by the FDA . The laboratory is regulated under CLIA as qualified to perform high-complexity testing. This test is used for clinical purposes. It should not be regarded as investigational or for research. Specimen Anatomical Collection Method Collection Time Receive d Time (Source) Location / / Volume Laterality 08/12/2015 4:35 PM 5 9:[address] MARK[address] Mingo Matas MD LAB - BLOOD ORDERABLES Performing Organization Address City/State/ZIP Code Phon e Number [facility] [address] documented in this encounter Visit Diagnoses Not on filedocumented in this encounter Care Teams Financial Compliance Examiner Relationship Specialty Start Date End Date Momo Forbes PCP - General Family Practice 01/02/14 [facility] 1999 [place] [address] nIgrid Santana, RN Registered Nurse Transplant 02/10/12 10/01/15 documented as of this encounter
--- OUTSIDE RECORDS SUMMARY | 2022-03-30 18:46 | XMS_ITS | Encounter Summary ---
:1950 Author Organization [place] Address [facility] [place] [address] Care Team Providers Name Role Phone Ingrid Santana RN Unavailable Momo Forbes Primary Care Provider Joseph Quintana MD Unavailable Encounter Details Date Type Department Care Team Description 11/07/2014 External Order Results The Transplant Ce nter Nurse, [facility] 2nd Floor, Clinic [address] [phone] Social History Tobacco Use Types Packs/Day Years [...] Associated Diagnosis Comme nts EXTERNAL LAB Routine 11/05/2014 8:32 AM Results f or this RESULTS CDT procedure are i n the results section. documented in this encounter Results (ABNORMAL) TXP External Lab Result (11/05/2014 8:32 AM CDT) Analysis Performed At [facility] Time Signature Sodium 140 135 - 145 LABDE SCAN (External) mmol/L Potassium 4.3 3.5 - 5.0 LABDE SCAN (External) mmol/L Chloride 110 98 - 110 LABDE SCAN (External) mmol/L (External) CO2 (External) 22 21 - 31 LABDE SCAN mmol/L Anion Gap 8 5 - 18 LABDE SCAN (External) Glucose 257 (H) 65 - 100 LABDE SCAN (External) mg/dL Calcium 10.2 8.5 - 10.5 LABDE SCAN (External) mg/dL Urea Nitrogen 22 8 - 25 LABDE SCAN (External) mg/dL Creatinine 1.40 (H) 0.72 - LABDE SCAN (External) 1.25 mg/dL BUN/Creatinine 16 10 - 20 LABDE SCAN Ratio (External) GFR Estimated >60 >60 LABDE SCAN (if ml/min/1.7 [place]ican) 3m2 (External) GFR Estimated 51 (L) >60 LABDE SCAN (External) ml/min/1.7 3m2 WBC Count 3.4 (L) 4.5 - 11.0 LABDE SCAN (External) thou/cu mm RBC Count 4.89 4.30 - LABDE SCAN (External) 5.90 mil/cu mm Hemoglobin 14.1 13.5 - LABDE SCAN (External) 17.5 g/dL Hematocrit 41.7 37.0 - LABDE SCAN (External) 53.0 % MCV (External) 85 80 - 100 LABDE SCAN fL MCH (External) 28.8 26.0 - LABDE SCAN 34.0 pg MCHC (External) 33.8 32.0 - LABDE SCAN 36.0 g/dL RDW (External) 13.8 11.5 - LABDE SCAN 15.5 % Platelet Count 109 (L) 140 - 440 LABDE SCAN (External) thou/cu mm MPV (External) 11.2 (H) 6.5 - 11.0 LABDE SCAN fL Specimen (Source) Anatomical Collection Method Collection Time Re ceived Time Location / / Volume Laterality 11/05/2014 8:32 AM CDT Narrative [facility] - 11/07/2014 12:25 PM CDT Verified by Freddy Mehta on 11/07. Patient Reported LABORATORY Performing Organization Address City/State/ZIP Code Phon e Number [facility]DE SCAN documented in this encounter Visit Diagnoses Not on filedocumented in this encounter Care Teams Concrete Laborer Relationship Specialty Start Date End Date Momo Forbes PCP - General Family Practice 01/02/14 [facility] [address] [place] [address] Ingrid Santana, RN Registered Nurse Transplant 02/10/12 10/01/15 Joseph Quintana, Assigned Nephrology 03/29/21 MD Provider [address] [place] [address] 1932 [place], [place] [phone] documented as of this encounter
--- OUTSIDE RECORDS SUMMARY | 2022-03-30 18:46 | XMS_ITS | Encounter Summary ---
:1950 Author Organization [place] Address formerly [facility] [place] [address] Care Team Providers Name Role Phone Ingrid Santana RN Unavailable Momo Forbes Primary Care Provider Encounter Details Date Type Department Care Team Description 12/30/2014 Orders Only The Transplant Shiva Arias, RN -donor kidney 2nd Floor, Clinic 2A [facility] transplant recipient Tommy Guillermoteen 420 [facility] (Primary Dx) Building [address] [place] [address] [place] [address] Social History Tobacco Use Types [...] documented as of this encounter Progress Notes Shiva Kahn, RN - 12/30/2014 4:17 PM CDT Tacrolimus level 9.5, target 6-8. PLAN: Decrease Prograf dose from 1.5 mg twice daily to 1 mg twice daily. TASK: Please call patient with instructions for dose change. 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
--- OUTSIDE RECORDS SUMMARY | 2022-03-30 18:46 | XMS_ITS | Encounter Summary ---
:1950 Author Organization [place] Address [facility] [place] [address] Care Team Providers Name Role Phone Ingrid Santana RN Unavailable Momo Forbes Primary Care Provider Joseph Quintana MD Unavailable Encounter Details Date Type Department Care Team Description 08/28/2014 External Order Results The Transplant Ce nter Nurse, [facility] 2nd Floor, Clinic [address]A [address] [phone] Social History Tobacco Use Types [...] Associated Diagnosis Comme nts EXTERNAL LAB Routine 08/26/2014 10:25 AM Results for this RESULTS MENTAL HYGIENIST procedure are i n the results section. documented in this encounter Results (ABNORMAL) TXP External Lab Result (08/26/2014 10:25 AM MENTAL HYGIENIST) Analysis Performed At [facility] Time Signature Sodium 139 135 - 145 LABDE SCAN (External) mmol/L Potassium 4.8 3.5 - 5.0 LABDE SCAN (External) mmol/L Chloride 107 98 - 110 LABDE SCAN (External) mmol/L (External) CO2 (External) 24 21 - 31 LABDE SCAN mmol/L Anion Gap 8 5 - 18 LABDE SCAN (External) Glucose 192 (H) 65 - 100 LABDE SCAN (External) mg/dL Calcium 10.4 8.5 - 10.5 LABDE SCAN (External) mg/dL Urea Nitrogen 30 (H) 8 - 25 LABDE SCAN (External) mg/dL Creatinine 1.48 (H) 0.72 - LABDE SCAN (External) 1.25 mg/dL BUN/Creatinine 20 10 - 20 LABDE SCAN Ratio (External) GFR Estimated 58 (L) >60 LABDE SCAN (if ml/min/1.7 Belarusian) 3m2 (External) GFR Estimated 48 (L) >60 LABDE SCAN (External) ml/min/1.7 3m2 WBC Count 4.2 (L) 4.5 - 11.0 LABDE SCAN (External) thou/cu mm RBC Count 4.66 4.30 - LABDE SCAN (External) 5.90 mil/cu mm Hemoglobin 13.6 13.5 - LABDE SCAN (External) 17.5 g/dL Hematocrit 40.7 37.0 - LABDE SCAN (External) 53.0 % Platelet Count 105 (L) 140 - 440 LABDE SCAN (External) thou/cu mm Specimen (Source) Anatomical Collection Method Collection Time Re ceived Time Location / / Volume Laterality 08/26/2014 10:25 AM MENTAL HYGIENIST Narrative JESSICA PFT - 08/28/2014 4:34 PM MENTAL HYGIENIST Verified by Freddy Mehta on 08/28. Patient Reported LABORATORY Performing Organization Address City/State/ZIP Code Phon e Number [facility]DE SC[facility] documented in this encounter Visit Diagnoses Not on filedocumented in this encounter Care Teams Public Health Worker Relationship Specialty Start Date End Date Momo Forbes PCP - General Family Practice 01/02/14 [facility] [address] [place] [address] Ingrid Santana, RN Registered Nurse Transplant 02/10/12 10/01/15 Joseph Quintana, Assigned Nephrology 03/29/21 MD Provider [address] [place] [address] [place] [id number] documented as of this encounter
--- OUTSIDE RECORDS SUMMARY | 2022-03-30 18:46 | XMS_ITS | Encounter Summary ---
:1950 Author Organization [place] Address Pending sale to [facility] [place] [address] Care Team Providers Name Role Phone Ingrid Santana RN Unavailable Momo Forbes Primary Care Provider Reason for Visit Reason Onset Date Comments Patient Reminder 08/28/2015 Encounter Details Date Type Department Care Team Description 08/28/2015 Telephone Nephrology Yesenia Clements CMA Patient Reminder 2nd Floor, Clinic [address] [place], [place] [phone] Social History Tobacco Use Types Packs/Day Years [...] this encounter Miscellaneous Notes Telephone Encounter - eYsenia Clements CMA - 08/28/2015 2:29 PM CST Notified patient of upcoming appointment with arrival time. Informed him/her to bring current medication list. Patient confirmed and understood. Yesenia Clements CMA RING PADS SUPERVISOR documented in this encounter Plan of Treatment Not on filedocumented as of this encounter Visit Diagnoses Not on filedocumented in this encounter Care Teams Patient Care Representative Relationship Specialty Start Date End Date Momo Forbes PCP - General Family Practice 01/02/14 [facility] [address] [place] [address] Ingrid Santana, RN Registered Nurse Transplant 02/10/12 10/01/15 documented as of this encounter
--- OUTSIDE RECORDS SUMMARY | 2022-03-30 18:46 | XMS_ITS | Encounter Summary ---
:1950 Author Organization [place] Address [address] [place] [address]. [place] [address] Care Team Providers Name Role Phone Momo Forbes Primary Care Provider Reason for Visit Reason Onset Date Comments Transplant Pharmacy Medication Review 02/05/2016 Encounter Details Date Type Department Care Team Description 02/05/2016 Telephone [facility] Nani Humphrey, [facility] Transplant Pharmacy [address] [facility] [place] [address] KREBS [phone] [place] [address] (Wo rk) Social History Tobacco Use Types [...] on filedocumented in this encounter Care Teams C D Reactor Operator Relationship Specialty Start Date End Date Momo Forbes PCP - General Family Practice 01/02/14 [facility] [address] [place] [address] documented as of this encounter
--- OUTSIDE RECORDS SUMMARY | 2022-03-30 18:46 | XMS_ITS | Encounter Summary ---
:1950 Author Organization [place] Address [facility]0 [facility] [address] Care Team Providers Name Role Phone Ingrid Santana RN Unavailable Momo Forbes Primary Care Provider Reason for Visit Reason Onset Date Comments Refill Request 04/21/2015 crestor Encounter Details Date Type Department Care Team Description 04/21/2015 Refill [facility] [address] Refill Request Physicians Orestes Hernandez MD (crestor) [facility] [place] 4th Floor, Clinic 4B [address] [facility] [facility] [address] [address] [phone] (Wo rk) [phone] Social History Tobacco Use Types Packs/Day Years [...] Notes Telephone Encounter - Gayathri Orta - 04/21/2015 1:29 PM CDT Crestor 10mg Last Written Prescription Date: 04/09/14 Last Fill Quantity: 30, # refills: 11 Last Office Visit with [facility] primary care provider: 05/14/14 CHOL 126 02/06/2014 HDL 35 02/06/2014 LDL 71 02/06/2014 TRIG 100 02/06/2014 CHOLHDLRATIO 3.6 02/06/2014 Gayathri Orta [facility] [address] [facility] [address] documented in this encounter Plan of Treatment Not on filedocumented as of this encounter Visit Diagnoses Diagnosis DM (diabetes mellitus), type 2 (H) - Ana ashley Type II or unspecified type diabetes aung litus without mention of complication, not stated as uncontrolled Other and unspecified hyperlipidemia documented in this encounter Care Teams Post Graduate Internship Relationship Specialty Start Date End Date Moom Forbes PCP - General Family Practice 01/02/14 [facility] [address] [place] [address] Ingrid Santana, RN Registered Nurse Transplant 02/10/12 10/01/15 documented as of this encounter
--- OUTSIDE RECORDS SUMMARY | 2022-03-30 18:46 | XMS_ITS | Encounter Summary ---
:1950 Author Organization [place] Address [address] [place] [address] Care Team Providers Name Role Phone Ingrid Santana RN Unavailable Momo Forbes Primary Care Provider Reason for Visit Reason Onset Date Comments Medication Question 01/17/2015 Encounter Details Date Type Department Care Team Description 01/17/2015 Telephone [facility] Beny Staton RPH Medication Question [address] [facility] [place] [address] PHARMACY [phone] [place], [place] [phone] Social History Tobacco Use Types Packs/Day Years [...] Telephone Encounter - Beny Staton RPH - 01/17/2015 10:01 AM CDT Current Outpatient Prescriptions Medication Sig Dispense Refill ??? PROGRAF 0.5 MG capsule HOLD (take as directed for dose changes) 60 capsule 11 ??? PROGRAF 1 MG capsule Take 1 capsule (1 mg) by mouth 2 times daily 60 capsule 11 ??? senna-docusate (SENOKOT-S;PERICOLACE) 8.6-50 MG per tablet Take 2 tablets by mouth daily as needed for constipation 15 tablet 3 ??? amLODIPine (NORVASC) 10 MG tablet Take [...] daily. Lab Results Component Value Date TACROL 9.5 12/25/2014 MPACID 1.39 02/25/2014 CR 1.48* 02/25/2014 WBC 4.9 02/25/2014 MAG 1.5* 02/25/2014 PHOS 1.3* 02/25/2014 BP Readings from Last 3 Encounters: 05/14/14 141/65 05/13/14 139/73 04/09/14 163/78 Patient is 11 months post-transplant. Medication adherence plan: med card, pill box Are you having any issues managing your medications? No How many doses of your immunosuppressant medication(s) have you missed in the past month? none Patient's immunosuppression regimen consists of: Mycophenolate Tacrolimus Patient's prophylactic medications include: Bactrim Were the prophylactic medications completed per protocol? yes Pharmacist assessment of compliance: Good How have you been feeling? Real good Have you had any hospitalizations/ER visits related to the transplant? no Medication reconciliation/DUR performed? Yes Any discrepancies? No Are you experiencing any side effects? No What questions do you have about the medications you are taking? none How often are you checking your blood pressure at home? Only about twice a week. Encouraged him to check more often. What was your most recent blood pressure reading at home? 160/? Pharmacist assessment/Plan: Adherence: good Side effects: none Blood pressure: will check more often and report to coordinator if systolic greater than 160 or diastolic greater than 90 Additional comments: Everything is going very well. His bp is a little high and he is not monitoringvery often. He said he would keep better tabs. His last to in [employer] were good but that was 8 months ago. Beny Staton [facility] Specialty Pharmacist [phone] documented in this encounter Plan of Treatment Not on filedocumented as of this encounter Visit Diagnoses Not on filedocumented in this encounter Care Teams Biological Technical Officer Relationship Specialty Start Date End Date Momo Forbes PCP - General Family Practice 01/02/14 [facility] [address] [place] [address] Ingrid Santana, RN Registered Nurse Transplant 02/10/12 10/01/15 documented as of this encounter
--- OUTSIDE RECORDS SUMMARY | 2022-03-30 18:46 | XMS_ITS | Encounter Summary ---
:1950 Author Organization [place] Address [facility]0 [facility] [place] [address] Care Team Providers Name Role Phone Ingrid Santana RN Unavailable Momo Forbes Primary Care Provider Joseph Quintana MD Unavailable Encounter Details Date Type Department Care Team Description 02/03/2015 External Order Results The Transplant Ce nter Nurse, [facility] 2nd Floor, Clinic [address]A [address] [phone] Social History Tobacco Use Types [...] Associated Diagnosis Comme nts EXTERNAL LAB Routine 01/28/2015 8:56 AM Results f or this RESULTS CDT procedure are i n the results section. documented in this encounter Results (ABNORMAL) TXP External Lab Result (01/28/2015 8:56 AM CDT) [facility] Method Time Signature Sodium (External) 140 135 - 145 LABDE SCAN mmol/L Potassium 4.3 3.5 - 5.0 LABDE SCAN (External) mmol/L Chloride 108 98 - 110 LABDE SCAN (External) mmol/L (External) CO2 (External) 21 21 - 31 LABDE SCAN mmol/L Anion Gap 11 5 - 18 LABDE SCAN (External) Glucose 299 (H) 65 - 100 LABDE SCAN (External) mg/dL Calcium 10.0 8.5 - LABDE SCAN (External) 10.5 mg/dL Urea Nitrogen 20 8 - 25 LABDE SCAN (External) mg/dL Creatinine 1.65 (H) 0.72 - LABDE SCAN (External) 1.25 mg/dL BUN/Creatinine 12 10 - 20 LABDE SCAN Ratio (External) GFR Estimated (if 51 (L) >60 LABDE SCAN ) ml/min/1. (External) 73m2 GFR Estimated 42 (L) >60 LABDE SCAN (External) ml/min/1. 73m2 Albumin 4.0 3.2 - 4.6 LABDE SCAN (External) g/dL Protein Total 6.5 6.0 - 8.0 LABDE SCAN (External) g/dL Bilirubin Total 0.8 0.2 - 1.2 LABDE SCAN (External) mg/dL Bilirubin Direct 0.3 0.1 - 0.5 LABDE SCAN (External) mg/dL Alk Phosphatase 102 50 - 136 LABDE SCAN (External) U/L ALT (External) 14 8 - 45 LABDE SCAN U/L AST (External) 13 2 - 40 LABDE SCAN U/L Cholesterol 114 100 - 199 LABDE SCAN (External) mg/dL WBC Count 3.1 (L) 4.5 - LABDE SCAN (External) 11.0 thou/cu mm RBC Count 5.06 4.30 - LABDE SCAN (External) 5.90 mil/cu mm Hemoglobin 14.8 13.5 - LABDE SCAN (External) 17.5 g/dL Hematocrit 43.1 37.0 - LABDE SCAN (External) 53.0 % MCV (External) 85 80 - 100 LABDE SCAN fL MCH (External) 29.2 26.0 - LABDE SCAN 34.0 pg MCHC (External) 34.3 32.0 - LABDE SCAN 36.0 g/dL RDW (External) 14.2 11.5 - LABDE SCAN 15.5 % Platelet Count 106 (L) 140 - 440 LABDE SCAN (External) thou/cu mm MPV (External) 11.2 (H) 6.5 - LABDE SCAN 11.0 fL Hemoglobin A1C 9.3 (H) <=6.4 % LABDE SCAN (External) Triglycerides 155 (H) <150 LABDE SCAN (External) mg/dL HDL Cholesterol 32 (L) >40 mg/dL LABDE SCAN (External) LDL-Cholesterol 51 <=130 LABDE SCAN (External) mg/dL Protein Albumin 15 (H) 1 - 14 LABDE SCAN Ur (External) mg/dL Creatinine Urine 120.1 63.0 - LABDE SCAN mg/dL (External) 166.0 mg/dL Protein Total Ur 0.1 RATIO LABDE SCAN per Cr (External) Specimen (Source) Anatomical Collection Method Collection Time Re ceived Time Location / / Volume Laterality 01/28/2015 8:56 AM CDT Narrative JESSICA PFT - 02/03/2015 9:19 AM CDT Verified by Freddy Mehta on 02/03. Patient Reported LABORATORY Performing Organization Address City/State/ZIP Code Phon e Number [facility]DE SCAN documented in this encounter Visit Diagnoses Not on filedocumented in this encounter Care Teams Motorcycle Racer Relationship Specialty Start Date End Date Momo Forbes PCP - General Family Practice 01/02/14 [facility] [address] [place] [address] Ingrid Santana, RN Registered Nurse Transplant 02/10/12 10/01/15 Joseph Quintana, Assigned Nephrology 03/29/21 MD Provider [address] [facility] 353 [facility] [address] [place], [place] [id number] documented as of this encounter
--- OUTSIDE RECORDS SUMMARY | 2022-03-30 18:46 | XMS_ITS | Encounter Summary ---
:1950 Author Organization [place] Address [address] [place] [address] Care Team Providers Name Role Phone Ingrid Santana RN Unavailable Momo Forbes Primary Care Provider Encounter Details Date Type Department Care Team Description 12/20/2014 Orders Only [facility], [facility], [facility] [place] [address] [phone] [place] [address] [address] [place] [address] (Wo rk) Social History Tobacco [...] Associated Comments Diagnosis TACROLIMUS BY TANDEM Routine 12/25/2014 9:45 AM R esults for this MASS SPECTROMETRY CDT procedure are in the results section. documented in this encounter Results Tacrolimus level (12/25/2014 9:45 AM CDT) Patholo gist Method Time Signature Tacrolimus Last 12/24/14 [facility] Dose [address] [facility] Tacrolimus 9.5 5.0 - [facility] 15.0 ug/L [facility] Comment: Tacrolimus Reference Range Kidney Transplant [...] its perform ance characteristics determined by the [facility], ??Special Chemistry Laboratory. It has not been cleared or approved by the FDA . The laboratory is regulated under CLIA as qualified to perform high-complexity testing. This test is used for clinical purposes. It should not be regarded as investigational or for research. Specimen Anatomical Collection Method Collection Time Receive d Time (Source) Location / / Volume Laterality 12/25/2014 9:45 AM 5 CDT 12:19 PM CDT Mingo Dangelo MD LAB - BLOOD ORDERABLES Performing Organization Address City/State/ZIP Code Phon e Number [facility] [address] documented in this encounter Visit Diagnoses Not on filedocumented in this encounter Care Teams Rotary Shear Cutter Relationship Specialty Start Date End Date Momo Forbes PCP - General Family Practice 01/02/14 [facility] [address] [place] [address] nIgrid Santana, RN Registered Nurse Transplant 02/10/12 10/01/15 documented as of this encounter
--- OUTSIDE RECORDS SUMMARY | 2022-03-30 18:46 | XMS_ITS | Encounter Summary ---
:1950 Author Organization [place] Address [address] [place] [address] Care Team Providers Name Role Phone Ingrid Santana RN Unavailable Momo Forbes Primary Care Provider Encounter Details Date Type Department Care Team Description 07/22/2014 Orders Only [facility], [facility], [facility] [address] [phone] [place] [address] 663 [place] [address] (Wo rk) Social History Tobacco [...] Procedure Name Priority Date/Time Associated Comments Diagnosis HLA LUKASZ CLASS II Routine 07/29/2014 8:20 AM Resul ts for this SINGLE ANTIGEN INCOME TAX AUDITOR procedure are in the results section. HLA LUKASZ CLASS I Routine 07/29/2014 8:20 AM Result s for this SINGLE ANTIGEN INCOME TAX AUDITOR procedure are in the results section. TACROLIMUS BY TANDEM Routine 07/29/2014 8:20 AM R esults for this MASS SPECTROMETRY INCOME TAX AUDITOR procedure are in the results section. TACROLIMUS BY TANDEM Routine 07/22/2014 8:20 AM R esults for this MASS SPECTROMETRY INCOME TAX AUDITOR procedure are in the results section. documented in this encounter Results HLA Lukasz Class II Single Antigen (07/29/2014 8:20 AM INCOME TAX AUDITOR) [facility] [employer] Method Time Signature SA2 Test SA HI HISTOTRAC Method SA2 Cell Class II HISTOTRAC SA2 PRA %POS 0 HISTOTRAC SA2 Hi Risk None HISTOTRAC Lukasz SA2 Mod Risk None HISTOTRAC Lukasz SA2 Comments Test performed by modified p rocedure. Serum heat inactivated. No donor HISTOTRAC specific antibody to 02/02/14 kidney donor. High-risk, mfi >3 ,000. Mod-risk, mfi 500-3,000. Predictive PRA derived from local d onor pool. Specimen Anatomical Collection Method Collection Time Receive d Time (Source) Location / / Volume Laterality 07/29/2014 8:20 AM 4 3:26 INCOME TAX AUDITOR PM INCOME TAX AUDITOR Deysi Alicea MD LAB - IMMUNOLOGY ORDERABLES Performing Organization Address City/State/ZIP Code Phon e Number [facility] Immunology/Histocompatabil [place], [place] [address] [facility] 500 [facility] [address] Building, Room 3-580 HISTOTRAC HLA Lukasz Class I Single Antigen (07/29/2014 8:20 AM INCOME TAX AUDITOR) [facility] Signature SA1 Test SA HI HISTOTRAC Method SA1 Cell Class I HISTOTRAC SA1 PRA %POS 1 HISTOTRAC SA1 Hi Risk None HISTOTRAC Lukasz SA1 Mod Risk A:43 HISTOTRAC Lukasz SA1 Comments Test performed by modified p rocedure. Serum heat inactivated. No donor HISTOTRAC specific antibody to 02/02/14 kidney donor. High-risk, mfi >3 ,000. Mod-risk, mfi 500-3,000. Predictive PRA derived from local d onor pool. Specimen Anatomical Collection Method Collection Time Receive d Time (Source) Location / / Volume Laterality 07/29/2014 8:20 AM 4 3:26 INCOME TAX AUDITOR PM INCOME TAX AUDITOR Deysi Alicea MD LAB - IMMUNOLOGY ORDERABLES Performing Organization Address City/State/ZIP Code Phon e Number [facility] Immunology/Histocompatabil [place] [id number] ithe [facility] 500 [facility] [address] Building, Room 3-580 HISTOTRAC Tacrolimus level (07/29/2014 8:20 AM INCOME TAX AUDITOR) [facility] gist Method Time Signature Tacrolimus Last 1999 [facility] Dose 07/28/14 [facility] Tacrolimus 10.5 5.0 - [facility] Level 15.0 ug/L [facility] Comment: Tacrolimus Reference Range Kidney Transplant Pediatric [...] 8-10 ?? >6 months post transplant ?5-8 Specimen Anatomical Collection Method Collection Time Receive d Time (Source) Location / / Volume Laterality 07/29/2014 8:20 AM 4 INCOME TAX AUDITOR 11:17 AM INCOME TAX AUDITOR Deysi Alicea MD LAB - BLOOD ORDERABLES Performing Organization Address City/State/ZIP Code Phon e Number [facility] 500 [place], [place] [phone] [place] [address] [facility] Tacrolimus level (07/22/2014 8:20 AM INCOME TAX AUDITOR) [facility] gist Method Time Signature Tacrolimus Last 1929 [facility] Dose 07/21/14 [facility] Tacrolimus 10.8 5.0 - [facility] Level 15.0 ug/L [facility] Comment: Tacrolimus Reference Range Kidney Transplant Pediatric [...] 8-10 ?? >6 months post transplant ?5-8 Specimen Anatomical Collection Method Collection Time Receive d Time (Source) Location / / Volume Laterality 07/22/2014 8:20 AM 4 INCOME TAX AUDITOR 11:45 AM INCOME TAX AUDITOR Deysi Alicea MD LAB - BLOOD ORDERABLES Performing Organization Address City/State/ZIP Code Phon e Number [facility] 500 [place], [place] [phone] [place] [address] LABS documented in this encounter Visit Diagnoses Not on filedocumented in this encounter Care Teams Security Attendant Relationship Specialty Start Date End Date Momo Forbes PCP - General Family Practice 01/02/14 [facility] [address] [place] [address] Ingrid Santana, RN Registered Nurse Transplant 02/10/12 10/01/15 documented as of this encounter
--- OUTSIDE RECORDS SUMMARY | 2022-03-30 18:46 | XMS_ITS | Encounter Summary ---
:1950 Author Organization [place] Address [address] [place] [address]. [place] [address] Care Team Providers Name Role Phone Ingrid Santana RN Unavailable Momo Forbes Primary Care Provider Encounter Details Date Type Department Care Team Description 08/03/2014 Abstract The Transplant [facility] 2nd Floor, Clinic [address]A [address] [phone] Social History Tobacco Use Types Packs/Day [...] filedocumented in this encounter Care Teams Assistant Professor Of Psychology Relationship Specialty Start Date End Date Momo Forbes PCP - General Family Practice 01/02/14 [facility] [address] [place] [address] Ingrid Santana RN Registered Nurse Transplant 02/10/12 10/01/15 documented as of this encounter
--- OUTSIDE RECORDS SUMMARY | 2022-03-30 18:46 | XMS_ITS | Encounter Summary ---
:1950 Author Organization [place] Address [facility] [place] [address] Care Team Providers Name Role Phone Ingrid Santana RN Unavailable Momo Forbes Primary Care Provider Reason for Visit Reason Onset Date Comments Transplant 08/08/2014 immunosuppression mckenzie trejo Encounter Details Date Type Department Care Team Description 08/08/2014 Refill Nephrology Shiva Kahn RN Transplant 2nd Floor, Clinic 2A [facility] (immunosuppression Sanders Wangensteen [address] [facility] management) Building [address] [place] [phone] Social History Tobacco Use Types Packs/Day Years [...] this encounter Miscellaneous Notes Telephone Encounter - Josseline Nice LPN - 08/09/2014 2:49 PM CST Called pt. Explained new target level is 6-8, tacro level was 9.0, we would like him to lower Prograf dose to 1.5mg BID. NESS UNIT DIRECTOR Telephone Encounter - Shiva Kahn RN - 08/08/2014 5:33 PM CST ISSUE: Tacrolimus level 9.0. New target tacrolimus levels 6-8 since patient is now 6 months post kidney transplant. PLAN: Decrease Prograf dose from 2 mg twice daily to 1.5 mg twice daily. TASK: Please call patient with instructions for dose change. NESS UNIT DIRECTOR documented in this encounter Plan of Treatment Not on filedocumented as of this encounter Visit Diagnoses Diagnosis -donor kidney transplant recipie nt - Primary Kidney replaced by transplant documented in this encounter Care Teams Medical Technologist Chemistry Relationship Specialty Start Date End Date Momo Forbes PCP - General Family Practice 01/02/14 [place] [address] Ingrid Santana, RN Registered Nurse Transplant 02/10/12 10/01/15 documented as of this encounter
--- OUTSIDE RECORDS SUMMARY | 2022-03-30 18:46 | XMS_ITS | Encounter Summary ---
:1950 Author Organization [place] Address [address] [place] [address]. [place] [address] Care Team Providers Name Role Phone Ingrid Santana RN Unavailable Momo Forbes Primary Care Provider Encounter Details Date Type Department Care Team Description 08/29/2015 Orders Only The Transplant Deepa Morgan Aftercare following organ tr ansplant (Primary Dx); 2nd Floor, Clinic 2A [facility] Kidney replaced by transplan t; Tommy Wilburn [facility] er for long-term current use of medication [address] [phone] Social History Tobacco Use Types [...] Aftercare following organ transplant - P rimary Kidney replaced by transplant Encounter for long-term current use of m edication documented in this encounter Care Teams Cash Posting Clerk Relationship Specialty Start Date End Date Momo Forbes PCP - General Family Practice 01/02/14 [facility] [address] [place] [address] Ingrid Santana, RN Registered Nurse Transplant 02/10/12 10/01/15 documented as of this encounter
--- OUTSIDE RECORDS SUMMARY | 2022-03-30 18:47 | XMS_ITS | Encounter Summary ---
:1950 Author Organization [place] Address [address] [place] [address]. [place] [address] Care Team Providers Name Role Phone Ingrid Santana RN Unavailable Momo Forbes Primary Care Provider Encounter Details Date Type Department Care Team Description 05/02/2014 Orders Only Nephrology Shiva Kahn RN -donor kidney 2nd Floor, Clinic 2A [facility] transplant recipient Tommy Josephensteen [address] [place] [address] [place] [phone] Social History Tobacco Use Types Packs/Day Years [...] transplant documented in this encounter Care Teams Tomography Technologist Relationship Specialty Start Date End Date Momo Forbes PCP - General Family Practice 01/02/14 [facility] [address] [place] [address] Ingrid Santana RN Registered Nurse Transplant 02/10/12 10/01/15 documented as of this encounter
--- OUTSIDE RECORDS SUMMARY | 2022-03-30 18:47 | XMS_ITS | Encounter Summary ---
:1950 Author Organization [place] Address [address] [place] [address]. [place] [address] Care Team Providers Name Role Phone Ingrid Santana RN Unavailable Momo Forbes Primary Care Provider Encounter Details Date Type Department Care Team Description 05/10/2014 Orders Only Nephrology Shiva Kahn RN -donor kidney 2nd Floor, Clinic 2A [facility] transplant recipient Tommy Mimateen [address] [place] [address] (Primary Dx) Building [address] [place] [phone] Social History Tobacco Use Types Packs/Day Years [...] transplant documented in this encounter Care Teams Member Of Parliament Relationship Specialty Start Date End Date Momo Forbes PCP - General Family Practice 01/02/14 [facility] [address] [place] [address] Ingrid Santana, RN Registered Nurse Transplant 02/10/12 10/01/15 documented as of this encounter
--- OUTSIDE RECORDS SUMMARY | 2022-03-30 18:47 | XMS_ITS | Encounter Summary ---
:1950 Author Organization [place] Address [facility] [place] [address] Care Team Providers Name Role Phone Ingrid Santana RN Unavailable Momo Forbes Primary Care Provider Encounter Details Date Type Department Care Team Description 05/20/2014 External Order Results The Transplant Ce ntjakob Nurse, [facility] 2nd Floor, Clinic [address]A [address] [phone] Social History Tobacco Use Types [...] Associated Diagnosis Comme nts EXTERNAL LAB Routine 05/17/2014 8:20 AM Results f or this RESULTS CDT procedure are i n the results section. documented in this encounter Results (ABNORMAL) TXP External Lab Result (05/17/2014 8:20 AM CDT) Analysis Performed At Patho logist Time Signature Sodium 141 135 - 145 LABDE SCAN (External) mmol/L Potassium 4.8 3.5 - 5.0 LABDE SCAN (External) mmol/L Chloride 110 (H) 98 - 107 LABDE SCAN (External) mmol/L (External) CO2 (External) 24 21 - 31 LABDE SCAN mmol/L Anion Gap 7 5 - 18 LABDE SCAN (External) Glucose 229 (H) 65 - 100 LABDE SCAN (External) mg/dL Calcium 10.0 8.5 - 10.5 LABDE SCAN (External) mg/dL Urea Nitrogen 26 (H) 8 - 25 LABDE SCAN (External) mg/dL Creatinine 1.54 (H) 0.72 - LABDE SCAN (External) 1.25 mg/dL BUN/Creatinine 17 10 - 20 LABDE SCAN Ratio (External) GFR Estimated 55 (L) >60 LABDE SCAN (if ml/min/1.7 Hungarian) 3m2 (External) GFR Estimated 46 (L) >60 LABDE SCAN (External) ml/min/1.7 3m2 WBC Count 3.5 (L) 4.5 - 11.0 LABDE SCAN (External) thou/cu mm RBC Count 4.50 4.30 - LABDE SCAN (External) 5.90 mil/cu mm Hemoglobin 12.7 (L) 13.5 - LABDE SCAN (External) 17.5 g/dL Hematocrit 39.3 37.0 - LABDE SCAN (External) 53.0 % MCV (External) 87 80 - 100 LABDE SCAN fL MCH (External) 28.2 26.0 - LABDE SCAN 34.0 pg MCHC (External) 32.3 32.0 - LABDE SCAN 36.0 g/dL RDW (External) 14.9 11.5 - LABDE SCAN 15.5 % Platelet Count 115 (L) 140 - 440 LABDE SCAN (External) thou/cu mm MPV (External) 11.8 (H) 6.5 - 11.0 LABDE SCAN fL Specimen (Source) Anatomical Collection Method Collection Time Re ceived Time Location / / Volume Laterality 05/17/2014 8:20 AM CDT Narrative [facility] - 05/20/2014 8:11 AM CDT Verified by Josseline Palma on 4. Patient Reported LABORATORY Performing Organization Address City/State/ZIP Code Phon e Number [facility] LABDE SCAN documented in this encounter Visit Diagnoses Not on filedocumented in this encounter Care Teams Manager Wholesale Relationship Specialty Start Date End Date Momo Forbes PCP - General Family Practice 01/02/14 [facility] [address] [place] [address] Ingrid Santana, RN Registered Nurse Transplant 02/10/12 10/01/15 documented as of this encounter
--- OUTSIDE RECORDS SUMMARY | 2022-03-30 18:47 | XMS_ITS | Encounter Summary ---
:1950 Author Organization [place] Address [facility] [place] [address] Care Team Providers Name Role Phone Ingrid Santana RN Unavailable Momo Forbes Primary Care Provider Joseph Quintana MD Unavailable Encounter Details Date Type Department Care Team Description 07/17/2014 External Order Results The Transplant Ce nter Nurse, [facility] 2nd Floor, Clinic [address]A [address] [phone] Social History Tobacco Use Types Packs/Day Years [...] Associated Diagnosis Comme nts EXTERNAL LAB Routine 07/15/2014 8:28 AM Results f or this RESULTS EYELET ROW MARKER procedure are i n the results section. documented in this encounter Results (ABNORMAL) TXP External Lab Result (07/15/2014 8:28 AM EYELET ROW MARKER) [facility] Sodium 138 135 - 145 LABDE SCAN (External) mmol/L Potassium 4.4 3.5 - 5.0 LABDE SCAN (External) mmol/L Chloride 109 98 - 110 LABDE SCAN (External) mmol/L (External) CO2 (External) 22 21 - 31 LABDE SCAN mmol/L Anion Gap 7 5 - 18 LABDE SCAN (External) Glucose 219 (H) 65 - 100 LABDE SCAN (External) mg/dL Calcium 9.9 8.5 - 10.5 LABDE SCAN (External) mg/dL Urea Nitrogen 22 8 - 25 LABDE SCAN (External) mg/dL Creatinine 1.44 (H) 0.72 - LABDE SCAN (External) 1.25 mg/dL BUN/Creatinine 15 10 - 20 LABDE SCAN Ratio (External) GFR Estimated 60 (L) >60 LABDE SCAN (if ml/min/1.7 Tongan) 3m2 (External) GFR Estimated 49 (L) >60 LABDE SCAN (External) ml/min/1.7 3m2 WBC Count 5.2 4.5 - 11.0 LABDE SCAN (External) thou/cu mm RBC Count 4.70 4.30 - LABDE SCAN (External) 5.90 mil/cu mm Hemoglobin 13.1 (L) 13.5 - LABDE SCAN (External) 17.5 g/dL Hematocrit 40.5 37.0 - LABDE SCAN (External) 53.0 % MCV (External) 86 80 - 100 LABDE SCAN fL MCH (External) 27.9 26.0 - LABDE SCAN 34.0 pg MCHC (External) 32.3 32.0 - LABDE SCAN 36.0 g/dL RDW (External) 14.7 11.5 - LABDE SCAN 15.5 % Platelet Count 108 (L) 140 - 440 LABDE SCAN (External) thou/cu mm MPV (External) 10.8 6.5 - 11.0 LABDE SCAN fL Specimen (Source) Anatomical Collection Method Collection Time Re ceived Time Location / / Volume Laterality 07/15/2014 8:28 AM EYELET ROW MARKER Narrative [facility] - 07/17/2014 8:35 AM EYELET ROW MARKER Verified by Maribel Plunkett on 07/17/20 14. Patient Reported LABORATORY Performing Organization Address City/State/ZIP Code Phon e Number [facility] LABDE SCAN documented in this encounter Visit Diagnoses Not on filedocumented in this encounter Care Teams Papier Mache' Molder Relationship Specialty Start Date End Date Momo Forbes PCP - General Family Practice 01/02/14 [facility] [address] [place] [address] Ingrid Santana, RN Registered Nurse Transplant 02/10/12 10/01/15 Joseph Quintana, Assigned Nephrology 03/29/21 MD Provider [address] [place] [address] [address] [place], [place] [id number] documented as of this encounter
--- OUTSIDE RECORDS SUMMARY | 2022-03-30 18:47 | XMS_ITS | Encounter Summary ---
:1950 Author Organization [place] Address [facility] [place] [address] Care Team Providers Name Role Phone Ingrid Santana RN Unavailable Momo Forbes Primary Care Provider Reason for Visit Reason Onset Date Comments Transplant 06/20/2014 FK 6.6 Encounter Details Date Type Department Care Team Description 06/20/2014 Telephone Nephrology Carmelita Rosario, Transplant (FK 6.6) 2nd Floor, Clinic 2A [place]OGD[place] [phone] Social History Tobacco Use Types Packs/Day [...] Telephone Encounter - Josseline Nice LPN - 06/20/2014 9:14 AM CDT Called pt, verified perfect 12 hour trough. Asked him to increase Prograf dose to 2mg BID. He is at the weekly lab stage. Telephone Encounter - Carmelita Rosario, BOGDAN - 06/20/2014 7:36 AM CDT FK 6.6 (target range 8-10 as he is 4.5 months post-kidney transplant). Please contact patient to verify if this is an accurate 12 hour trough level. If it is an accurate level, please instruct patient to increase his Prograf dose by 0.5 mg every twelve hours and repeat labs in 1-2 weeks. Also, please update medication list and place lab orders as necessary. If it is not an accurate 12 hour level, instruct patient to repeat lab & give instructions on how to collect an accurate 12 hour trough level. documented in this encounter Plan of Treatment Not on filedocumented as of this encounter Visit Diagnoses Diagnosis -donor kidney transplant recipie nt Kidney replaced by transplant documented in this encounter Care Teams Flame Annealing Machine Operator Relationship Specialty Start Date End Date Momo Forbes PCP - General Family Practice 01/02/14 [facility] [address] [place] [address] Ingrid Santana, BOGDAN Registered Nurse Transplant 02/10/12 10/01/15 documented as of this encounter
--- OUTSIDE RECORDS SUMMARY | 2022-03-30 18:47 | XMS_ITS | Encounter Summary ---
:1950 Author Organization [place] Address [address] [place] [address]. [place] [address] Care Team Providers Name Role Phone Ingrid Santana RN Unavailable Momo Forbes Primary Care Provider Encounter Details Date Type Department Care Team Description 05/17/2014 Orders Only Nephrology Shiva Kahn RN -donor kidney 2nd Floor, Clinic 2A [employer] transplant recipient Tommy Mimateen [address] [place] [address] (Primary Dx) Building [address] [place] [phone] Social History Tobacco Use Types Packs/Day Years [...] transplant documented in this encounter Care Teams Hvac Service Technician Relationship Specialty Start Date End Date Momo Forbes PCP - General Family Practice 01/02/14 [facility] [address] [place] [address] Ingrid Santana, RN Registered Nurse Transplant 02/10/12 10/01/15 documented as of this encounter
--- OUTSIDE RECORDS SUMMARY | 2022-03-30 18:47 | XMS_ITS | Encounter Summary ---
:1950 Author Organization [place] Address [facility] [place] [address] Care Team Providers Name Role Phone Ingrid Santana RN Unavailable Momo Forbes Primary Care Provider Encounter Details Date Type Department Care Team Description 06/10/2014 External Order Results The Transplant Ce ntjakob Nurse, [facility] 2nd Floor, Clinic 2A [address] [phone] Social History Tobacco Use Types [...] Associated Diagnosis Comme nts EXTERNAL LAB Routine 06/10/2014 7:54 AM Results f or this RESULTS CDT procedure are i n the results section. documented in this encounter Results (ABNORMAL) TXP External Lab Result (06/10/2014 7:54 AM CDT) Analysis Performed At Patho logist Time Signature Sodium 139 135 - 145 LABDE SCAN (External) mmol/L Potassium 4.5 3.5 - 5.0 LABDE SCAN (External) mmol/L Chloride 109 (H) 98 - 107 LABDE SCAN (External) mmol/L (External) CO2 (External) 24 21 - 31 LABDE SCAN mmol/L Anion Gap 6 5 - 18 LABDE SCAN (External) Glucose 150 (H) 65 - 100 LABDE SCAN (External) mg/dL Calcium 10.0 8.5 - 10.5 LABDE SCAN (External) mg/dL Urea Nitrogen 21 8 - 25 LABDE SCAN (External) mg/dL Creatinine 1.44 (H) 0.72 - LABDE SCAN (External) 1.25 mg/dL BUN/Creatinine 15 10 - 20 LABDE SCAN Ratio (External) GFR Estimated 60 (L) >60 LABDE SCAN (if ml/min/1.7 Moroccan) 3m2 (External) GFR Estimated 49 (L) >60 LABDE SCAN (External) ml/min/1.7 3m2 WBC Count 5.7 4.5 - 11.0 LABDE SCAN (External) thou/cu mm RBC Count 4.91 4.30 - LABDE SCAN (External) 5.90 mil/cu mm Hemoglobin 13.5 13.5 - LABDE SCAN (External) 17.5 g/dL Hematocrit 42.3 37.0 - LABDE SCAN (External) 53.0 % MCV (External) 86 80 - 100 LABDE SCAN fL MCH (External) 27.5 26.0 - LABDE SCAN 34.0 pg MCHC (External) 31.9 (L) 32.0 - LABDE SCAN 36.0 g/dL RDW (External) 15.0 11.5 - LABDE SCAN 15.5 % Platelet Count 131 (L) 140 - 440 LABDE SCAN (External) thou/cu mm MPV (External) 10.6 6.5 - 11.0 LABDE SCAN fL Specimen (Source) Anatomical Collection Method Collection Time Re ceived Time Location / / Volume Laterality 06/10/2014 7:54 AM CDT Narrative [facility] - 06/10/2014 2:57 PM CDT Verified by Julianne Myers on 4. Patient Reported LABORATORY Performing Organization Address City/State/ZIP Code Phon e Number [facility] LABDE SCAN documented in this encounter Visit Diagnoses Not on filedocumented in this encounter Care Teams Stoker Erector And Servicer Relationship Specialty Start Date End Date Momo Forbes PCP - General Family Practice 01/02/14 [facility] [address] [place] [phone] Ingrid Santana, RN Registered Nurse Transplant 02/10/12 10/01/15 documented as of this encounter
--- OUTSIDE RECORDS SUMMARY | 2022-03-30 18:47 | XMS_ITS | Encounter Summary ---
:1950 Author Organization [place] Address [address] [place] [address]. [place] [address] Care Team Providers Name Role Phone Ingrid Santana RN Unavailable Momo Forbes Primary Care Provider Encounter Details Date Type Department Care Team Description 05/27/2014 Orders Only Nephrology Shiva Kahn RN -donor kidney 2nd Floor, Clinic 2A [facility] transplant recipient Tommy Mimateen [address] [place] [address] [place] [phone] Social History Tobacco Use Types Packs/Day Years [...] transplant documented in this encounter Care Teams Chief Environmental Commitment Officer Relationship Specialty Start Date End Date Momo Forbes PCP - General Family Practice 01/02/14 [facility] [address] [place] [address] Ingrid Santana RN Registered Nurse Transplant 02/10/12 10/01/15 documented as of this encounter
--- OUTSIDE RECORDS SUMMARY | 2022-03-30 18:47 | XMS_ITS | Encounter Summary ---
:1950 Author Organization [place] Address [facility] [place] [address] Care Team Providers Name Role Phone Ingrid Santana RN Unavailable Momo Forbes Primary Care Provider Reason for Visit Reason Comments Heart Problem 6 week F/U Encounter Details Date Type Department Care Team Description 05/14[facility]2014 [facility] [place] [facility] Kei Hernandez, shanon carey (Primary Heart MD Dx) Tommy Wilburn [facility] Building [place] 4th Floor, Clinic [address] [id number] [phone] [place], [place] (Work) [phone] [phone] Social History Tobacco Use Types Packs/Day Years [...] Sign Reading Time Taken Comments Blood Pressure 141/65 05/14/2014 9:21 AM CDT Pulse 56 05/14/2014 9:21 AM CDT Temperature - - Respiratory Rate - - Oxygen Saturation 97% 05/14/2014 9:21 AM CDT Inhaled Oxygen Concentration - - Weight 123.5 kg (272 lb 3.2 oz) 05/14/2014 9:21 AM CDT Height 182.9 cm (6') 05/14/2014 9:21 AM CDT Body Mass Index 36.92 05/14/2014 9:21 AM CDT documented in this encounter Patient Instructions Patient InstructionsRubi Howell RN - 05/14/2014 9:31 AM CDT Please contact me if you have any questions or concerns. Rubi Howell RN Cardiology Thread Machine Operator documented in this encounter Progress Notes Kei Rodriguez MD - 05/14/2014 9:34 AM CDT CC : Post op Afib HPI: Patient is a 64 yo gentleman who developed post op afib after renal tx , now in NSR, since last visit has been off warfarin. We added amlodipine on and Crestor last visit. Patient still has BP in the range of 135-145/80s at home. He does not report any episode of palpitations or irregular pulse. Patient reports no chest pain , sob , syncope. Amlodipine is not causing ankle edema or headache. He never did have sx from afib. However, his pulse has been regular when he uses his home bp machine. PAST MEDICAL HISTORY: Past Medical History Diagnosis Date ??? Diabetes mellitus type II ??? HTN (hypertension) ??? Hyperlipidemia ??? Diabetic peripheral neuropathy 2002 on insulin x 4 years ??? Retinopathy due to secondary diabetes mellitus ??? Gout ??? Anemia ??? Thrombocytopenia ??? Depression ??? Dialysis patient 08/30/2011 ??? Renal disease [facility] CURRENT MEDICATIONS: Current Outpatient Prescriptions Medication Sig Dispense Refill ??? METOPROLOL TARTRATE PO Take 25 mg by mouth 2 times daily ??? PROGRAF 0.5 MG capsule Take 1 capsule (0.5 mg) by mouth 2 times daily 60 capsule 6 ??? pantoprazole (PROTONIX) 40 MG enteric coated tablet Take 1 tablet (40 mg) by mouth daily 30 tablet 1 ??? amLODIPine (NORVASC) 5 MG tablet Take 1 tablet (5 mg) by mouth daily 90 tablet 3 ??? rosuvastatin (CRESTOR) 10 MG tablet Take [...] tablet Take 100 mg by mouth daily. PAST SURGICAL HISTORY: Past Surgical History Procedure Laterality Date ??? [...] Surgeon: Migel Merchant MD; Location: [facility] OR ALLERGIES No Known Allergies FAMILY HISTORY: Family History Problem Relation Age of Onset ??? C.A.D. Father ??? Alzheimers Mother SOCIAL HISTORY: History Social History ??? Marital Status: Single Spouse Name: N/A Number of Children: N/A ??? 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 Smoking status: Former Smoker -- 5 years Types: Cigars Quit date: 08/22/2006 ??? Smokeless tobacco: Never Used ??? Alcohol Use: 0.0 oz/week 0 drink(s) per week Comment: occasional drink. ??? Drug Use: No ??? Sexual Activity: None Other Topics Concern ??? Blood Transfusions No ??? Seat Belt Yes Social History Narrative ROS: EXAM: BP 141/65 Pulse 56 Ht 1.829 m (6') Wt 123.469 kg (272 lb 3.2 oz) BMI 36.91 kg/m2 SpO2 97% Labs: LIPID RESULTS: Lab Results Component Value Date CHOL 126 02/06/2014 HDL 35* 02/06/2014 LDL 71 02/06/2014 TRIG 100 02/06/2014 CHOLHDLRATIO 3.6 02/06/2014 LIVER ENZYME RESULTS: Lab Results Component Value Date AST 18 02/02/2014 ALT 33 02/02/2014 CBC RESULTS: Lab Results Component Value Date WBC 4.9 02/25/2014 RBC 2.67* 02/25/2014 HGB 10.2* 04/01/2014 HCT 23.5* 02/25/2014 MCV 88 02/25/2014 MCH 29.2 02/25/2014 MCHC 33.2 02/25/2014 RDW 14.3 02/25/2014 PLT 179 02/25/2014 BMP RESULTS: Lab Results Component Value Date NA 137 02/25/2014 POTASSIUM 4.1 04/01/2014 CHLORIDE 108 02/25/2014 CO2 19* 02/25/2014 ANIONGAP 10 02/25/2014 GLC 217* 02/25/2014 BUN 13 02/25/2014 CR 1.48* 02/25/2014 GFRESTIMATED 48* 02/25/2014 GFRESTBLACK 58* 02/25/2014 ENEDINA 9.6 02/25/2014 A1C RESULTS: Lab Results Component Value Date A1C 6.1* 02/07/2014 INR RESULTS: Lab Results Component Value Date INR 1.64* 04/01/2014 INR 1.1 03/15/2014 INR 2.39* 02/25/2014 Procedures: Interpretation Summary Technically difficult study. Extremely difficult acoustic windows despite the use of contrast for endcardial border definition. Global and regional left ventricular function is normal with an EF of 55-60%. PatientHeight: 72 in PatientWeight: 285 lbs SystolicPressure: 133 mmHg DiastolicPressure: 79 mmHg BSA 2.5 m^2 Procedure Complete Portable Echo Adult. Contrast Optison. Technically difficult study.Extremely difficult acoustic windows despite the use of contrast for endcardial border definition. Left Ventricle Global and regional left ventricular function is normal with an EF of 55-60%. Right Ventricle Right ventricular function cannot be assessed due to poor image quality. Atria The atria cannot be assessed. Mitral Valve Mild mitral annular calcification is present. Aortic Valve Mild aortic valve sclerosis is present. Tricuspid Valve Pulmonary artery systolic pressure cannot be assessed. Pulmonic Valve The pulmonic valve cannot be assessed. Vessels The inferior vena cava is normal Assessment and Plan: Post op afib, no known recurrence Dcd warfarin Call if pulse is irregular or sx suggest afib HTN, Will increase Amlodipine to 10mg Call in 1 month High risk for stroke, CVD Rosuvastatin 10 mg daily Follow up cardiology should HTN prove refractory to addition of ARB and thiazide, or should afib recur. ADRIANA-I are contraindicated because of cough. I have seen and examined the patient and reviewed labs, imaging tests, and ecgs. I have discussed myfindings and treatment recommendations with the housestaff and agree with their assessment and plan as outlined in their note. 05/14/2014 I spent 15 minutes total time of which 15 minutes were spent counseling. Subjects covered include htn and afib as discussed above MD Concha Alanis MD CC Patient Care Team: Momo Forbes as PCP - General (Family Practice) Ingrid Santana, RN as Registered Nurse (Transplant) KEI RODRIGUEZ documented in this encounter Nursing Notes Rubi Howell RN - 05/14/2014 9:32 AM CDT Patient stated he understood all health information given and agreed to call with further questions or concerns. documented in this encounter Plan of Treatment Not on filedocumented as of this encounter Visit Diagnoses Diagnosis Unspecified essential hypertension - Ana ramirez documented in this encounter Care Teams Metal Rolling Mill Operator Relationship Specialty Start Date End Date Momo Forbes PCP - General Family Practice 01/02/14 [place] [id number] Ingrid Santana, RN Registered Nurse Transplant 02/10/12 10/01/15 documented as of this encounter
--- OUTSIDE RECORDS SUMMARY | 2022-03-30 18:47 | XMS_ITS | Encounter Summary ---
:1950 Author Organization [place] Address [facility]0 [facility] [place] [address] Care Team Providers Name Role Phone Ingrid Santana RN Unavailable Momo Forbes Primary Care Provider Encounter Details Date Type Department Care Team Description 06/17/2014 External Order Results The Transplant Ce ntjakob Nurse, [facility] 2nd Floor, Clinic [address] [phone] Social History Tobacco Use Types [...] Associated Diagnosis Comme nts EXTERNAL LAB Routine 06/17/2014 8:10 AM Results f or this RESULTS CDT procedure are i n the results section. documented in this encounter Results (ABNORMAL) TXP External Lab Result (06/17/2014 8:10 AM CDT) Analysis Performed At Patho logist Time Signature Sodium 137 135 - 145 LABDE SCAN (External) mmol/L Potassium 4.7 3.5 - 5.0 LABDE SCAN (External) mmol/L Chloride 108 (H) 98 - 107 LABDE SCAN (External) mmol/L (External) CO2 (External) 24 21 - 31 LABDE SCAN mmol/L Anion Gap 5 5 - 18 LABDE SCAN (External) Glucose 195 (H) 65 - 100 LABDE SCAN (External) mg/dL Calcium 10.0 8.5 - 10.5 LABDE SCAN (External) mg/dL Urea Nitrogen 26 (H) 8 - 25 LABDE SCAN (External) mg/dL Creatinine 1.51 (H) 0.72 - LABDE SCAN (External) 1.25 mg/dL BUN/Creatinine 17 10 - 20 LABDE SCAN Ratio (External) GFR Estimated 57 (L) >60 LABDE SCAN (if ml/min/1.7 Colombian) 3m2 (External) GFR Estimated 47 (L) >60 LABDE SCAN (External) ml/min/1.7 3m2 WBC Count 3.5 (L) 4.5 - 11.0 LABDE SCAN (External) thou/cu mm RBC Count 4.80 4.30 - LABDE SCAN (External) 5.90 mil/cu mm Hemoglobin 13.3 (L) 13.5 - LABDE SCAN (External) 17.5 g/dL Hematocrit 41.6 37.0 - LABDE SCAN (External) 53.0 % MCV (External) 87 80 - 100 LABDE SCAN fL MCH (External) 27.7 26.0 - LABDE SCAN 34.0 pg MCHC (External) 32.0 32.0 - LABDE SCAN 36.0 g/dL RDW (External) 14.8 11.5 - LABDE SCAN 15.5 % Platelet Count 99 (L) 140 - 440 LABDE SCAN (External) thou/cu mm MPV (External) 11.4 (H) 6.5 - 11.0 LABDE SCAN fL Specimen (Source) Anatomical Collection Method Collection Time Re ceived Time Location / / Volume Laterality 06/17/2014 8:10 AM CDT Narrative [facility]ESS[facility] - 06/17/2014 1:59 PM CDT Verified by Xiomara Bello on 06/17/20 14. Patient Reported LABORATORY Performing Organization Address City/State/ZIP Code Phon e Number [facility] LABDE SCAN documented in this encounter Visit Diagnoses Not on filedocumented in this encounter Care Teams Migratory Farm Hand Relationship Specialty Start Date End Date Momo Forbes PCP - General Family Practice 01/02/14 [facility] [address] [place] [address] Ingrid Santana, RN Registered Nurse Transplant 02/10/12 10/01/15 documented as of this encounter
--- OUTSIDE RECORDS SUMMARY | 2022-03-30 18:47 | XMS_ITS | Encounter Summary ---
:1950 Author Organization [place] Address [facility] [place] [address] Care Team Providers Name Role Phone Ingrid Santana RN Unavailable Momo Forbes Primary Care Provider Joseph Quintana MD Unavailable Encounter Details Date Type Department Care Team Description 06/24/2014 External Order Results The Transplant Ce nter Nurse, [facility] 2nd Floor, Clinic [address] [phone] Social History Tobacco Use Types Packs/Day Years [...] Associated Diagnosis Comme nts EXTERNAL LAB Routine 06/24/2014 8:37 AM Results f or this RESULTS FRONT END SPECIALIST procedure are i n the results section. documented in this encounter Results (ABNORMAL) TXP External Lab Result (06/24/2014 8:37 AM FRONT END SPECIALIST) [facility] Time Signature Sodium 139 135 - 145 LABDE SCAN (External) mmol/L Potassium 5.1 (H) 3.5 - 5.0 LABDE SCAN (External) mmol/L Chloride 109 (H) 98 - 107 LABDE SCAN (External) mmol/L (External) CO2 (External) 24 21 - 31 LABDE SCAN mmol/L Anion Gap 6 5 - 18 LABDE SCAN (External) Glucose 209 (H) 65 - 100 LABDE SCAN (External) mg/dL Calcium 10.2 8.5 - 10.5 LABDE SCAN (External) mg/dL Urea Nitrogen 28 (H) 8 - 25 LABDE SCAN (External) mg/dL Creatinine 1.58 (H) 0.72 - LABDE SCAN (External) 1.25 mg/dL BUN/Creatinine 18 10 - 20 LABDE SCAN Ratio (External) GFR Estimated 54 (L) >60 LABDE SCAN (if ml/min/1.7 Angolan) 3m2 (External) GFR Estimated 44 (L) >60 LABDE SCAN (External) ml/min/1.7 3m2 WBC Count 4.5 4.5 - 11.0 LABDE SCAN (External) thou/cu mm RBC Count 4.94 4.30 - LABDE SCAN (External) 5.90 mil/cu mm Hemoglobin 13.9 13.5 - LABDE SCAN (External) 17.5 g/dL Hematocrit 42.4 37.0 - LABDE SCAN (External) 53.0 % MCV (External) 86 80 - 100 LABDE SCAN fL MCH (External) 28.1 26.0 - LABDE SCAN 34.0 pg MCHC (External) 32.8 32.0 - LABDE SCAN 36.0 g/dL RDW (External) 15.0 11.5 - LABDE SCAN 15.5 % Platelet Count 105 (L) 140 - 440 LABDE SCAN (External) thou/cu mm MPV (External) 10.5 6.5 - 11.0 LABDE SCAN fL Specimen (Source) Anatomical Collection Method Collection Time Re ceived Time Location / / Volume Laterality 06/24/2014 8:37 AM FRONT END SPECIALIST Narrative [facility] - 06/24/2014 2:52 PM FRONT END SPECIALIST Verified by Sofie Verdin on 4. Patient Reported LABORATORY Performing Organization Address City/State/ZIP Code Phon e Number [facility] LABDE SCAN documented in this encounter Visit Diagnoses Not on filedocumented in this encounter Care Teams Exhibition Carver Relationship Specialty Start Date End Date Momo Forbes PCP - General Family Practice 01/02/14 [facility] [address] [place] [address] Ingrid Santana, RN Registered Nurse Transplant 02/10/12 10/01/15 Joseph Quintana, Assigned Nephrology 03/29/21 MD Provider [address] [place] [address] [address] [place], [place] [id number] documented as of this encounter
--- OUTSIDE RECORDS SUMMARY | 2022-03-30 18:47 | XMS_ITS | Encounter Summary ---
:1950 Author Organization [place] Address [facility] [place] [address] Care Team Providers Name Role Phone Ingrid Santana RN Unavailable Momo Forbes Primary Care Provider Encounter Details Date Type Department Care Team Description 06/07/2014 External Order Results The Transplant Ce ntjakob Nurse, [facility] 2nd Floor, Clinic [address] [phone] Social History Tobacco Use Types [...] Associated Diagnosis Comme nts EXTERNAL LAB Routine 06/05/2014 8:30 AM Results f or this RESULTS CDT procedure are i n the results section. documented in this encounter Results (ABNORMAL) TXP External Lab Result (06/05/2014 8:30 AM CDT) [facility] Method Time Signature Sodium (External) 138 135 - 145 LABDE SCAN mmol/L Potassium 4.5 3.5 - 5.0 LABDE SCAN (External) mmol/L Chloride 108 (H) 98 - 107 LABDE SCAN (External) mmol/L (External) CO2 (External) 22 21 - 31 LABDE SCAN mmol/L Anion Gap 8 5 - 18 LABDE SCAN (External) Glucose 185 (H) 65 - 100 LABDE SCAN (External) mg/dL Calcium 9.9 8.5 - LABDE SCAN (External) 10.5 mg/dL Urea Nitrogen 28 (H) 8 - 25 LABDE SCAN (External) mg/dL Creatinine 1.40 (H) 0.72 - LABDE SCAN (External) 1.25 mg/dL BUN/Creatinine 20 10 - 20 LABDE SCAN Ratio (External) GFR Estimated (if >60 >60 LABDE SCAN ) ml/min/1. (External) 73m2 GFR Estimated 51 (L) >60 LABDE SCAN (External) ml/min/1. 73m2 Cholesterol 98 (L) 100 - 199 LABDE SCAN (External) mg/dL Triglycerides 87 <150 LABDE SCAN (External) mg/dL HDL Cholesterol 31 (L) >40 mg/dL LABDE SCAN (External) LDL-Cholesterol 50 <=130 LABDE SCAN (External) mg/dL WBC Count 4.2 (L) 4.5 - LABDE SCAN (External) 11.0 thou/cu mm RBC Count 4.86 4.30 - LABDE SCAN (External) 5.90 mil/cu mm Hemoglobin 13.5 13.5 - LABDE SCAN (External) 17.5 g/dL Hematocrit 41.5 37.0 - LABDE SCAN (External) 53.0 % MCV (External) 85 80 - 100 LABDE SCAN fL MCH (External) 27.8 26.0 - LABDE SCAN 34.0 pg MCHC (External) 32.5 32.0 - LABDE SCAN 36.0 g/dL RDW (External) 14.9 11.5 - LABDE SCAN 15.5 % Platelet Count 123 (L) 140 - 440 LABDE SCAN (External) thou/cu mm MPV (External) 10.5 6.5 - LABDE SCAN 11.0 fL Specimen (Source) Anatomical Collection Method Collection Time Re ceived Time Location / / Volume Laterality 06/05/2014 8:30 AM CDT Narrative [facility]ESSICA [facility] - 06/07/2014 8:04 AM CDT Verified by Josseline Palma on 4. Patient Reported LABORATORY Performing Organization Address City/State/ZIP Code Phon e Number [facility] LABDE SCAN documented in this encounter Visit Diagnoses Not on filedocumented in this encounter Care Teams Non Morse Intercept Technician Relationship Specialty Start Date End Date Momo Forbes PCP - General Family Practice 01/02/14 [facility] [address] [place] [phone] Ingrid Santana, RN Registered Nurse Transplant 02/10/12 10/01/15 documented as of this encounter
--- OUTSIDE RECORDS SUMMARY | 2022-03-30 18:47 | XMS_ITS | Encounter Summary ---
:1950 Author Organization [place] Address [address] [place] [address] Care Team Providers Name Role Phone Ingrid Santana RN Unavailable Momo Forbes Primary Care Provider Reason for Visit Reason Onset Date Comments Anticoagulation 04/01/2014 Encounter Details Date Type Department Care Team Description 04/01/2014 Telephone [facility] Joseph Levine , Anticoagulation Anticoagulation Clin ic [facility] [address] [place], [place] [phone] [facility] [phone] [place] [address] [address] [place] [address] (Wo rk) Social History Tobacco Use Types [...] this encounter Miscellaneous Notes Telephone Encounter - Joseph Levine, [facility] - 04/01/2014 5:22 PM CDT INR today was 1.64 I spoke with Diego his proceedure went well. I recommended warfarin 7.5mgs MWF 5mgs all other days He will have an INR on 04/09/14 at his appointment with Dr Rodriguez documented in this encounter Plan of Treatment Not on filedocumented as of this encounter Visit Diagnoses Not on filedocumented in this encounter Care Teams Basketball Scout Relationship Specialty Start Date End Date Momo Forbes PCP - General Family Practice 01/02/14 [place] [phone] Ingrid Santana, RN Registered Nurse Transplant 02/10/12 10/01/15 documented as of this encounter
--- OUTSIDE RECORDS SUMMARY | 2022-03-30 18:47 | XMS_ITS | Encounter Summary ---
:1950 Author Organization [place] Address [address] [place] [address]. [place] [address] Care Team Providers Name Role Phone Ingrid Santana RN Unavailable Momo Forbes Primary Care Provider Reason for Visit Reason Onset Date Comments Refill Request 04/05/2014 Tamy Cabrera Encounter Details Date Type Department Care Team Description 04/05/2014 Refill The Transplant Migel Martinez, Refill Request 2nd Floor, Clinic 2A [facility] [address] [place] [address] antoprazole) Building [facility] [address] [place] [address] [address] [place] [phone] Social History Tobacco Use Types Packs/Day Years [...] encounter Miscellaneous Notes Telephone Encounter - Aubrey Jcakson - 04/05/2014 12:07 PM CDT Drug Name: Pantoprazole Last Fill Date: 03/06/14 Quantity: 30 Drug: Jantoven Last Fill: 03/14/14 Qty: 30 [facility] [phone] documented in this encounter Plan of Treatment Not on filedocumented as of this encounter Visit Diagnoses Diagnosis S/P kidney transplant Kidney replaced by transplant Atrial fibrillation (H) Atrial fibrillation documented in this encounter Care Teams Corrosion Technician Relationship Specialty Start Date End Date Momo Forbes PCP - General Family Practice 01/02/14 [facility] [address] [place] [address] Ingrid Santana, RN Registered Nurse Transplant 02/10/12 10/01/15 documented as of this encounter
--- OUTSIDE RECORDS SUMMARY | 2022-03-30 18:47 | XMS_ITS | Encounter Summary ---
:1950 Author Organization [place] Address [facility] [place] [address] Care Team Providers Name Role Phone Ingrid Santana RN Unavailable Momo Forbes Primary Care Provider Reason for Visit Reason Onset Date Comments Patient Reminder 05/09/2014 Encounter Details Date Type Department Care Team Description 05/09/2014 Telephone Nephrology Yesenia Clements CMA Patient Reminder 2nd Floor, Clinic [address] [place] [phone] Social History Tobacco Use Types [...] this encounter Miscellaneous Notes Telephone Encounter - Yesenia Clements CMA - 05/09/2014 8:41 AM CDT Left message for pt reminding them of upcoming appointment. Instructed pt to bring updated medications list or current medication bottles. Yesenia Clements CMA documented in this encounter Plan of Treatment Not on filedocumented as of this encounter Visit Diagnoses Not on filedocumented in this encounter Care Teams Manager Multimedia Relationship Specialty Start Date End Date Momo Forbes PCP - General Family Practice 01/02/14 [facility] [address] [place] [address] Ingrid Santana, RN Registered Nurse Transplant 02/10/12 10/01/15 documented as of this encounter
--- OUTSIDE RECORDS SUMMARY | 2022-03-30 18:47 | XMS_ITS | Encounter Summary ---
:1950 Author Organization [place] Address [address] [place] [address]. [place] [address] Care Team Providers Name Role Phone Ingrid Santana RN Unavailable Momo Forbes Primary Care Provider Encounter Details Date Type Department Care Team Description 04/04/2014 Orders Only Nephrology Shiva Kahn, RN S/P kidney transplant 2nd Floor, Clinic [facility] [address] [place] [address] [place] [phone] Social History Tobacco Use Types Packs/Day Years [...] S/P kidney transplant Kidney replaced by transplant documented in this encounter Care Teams Doctor Of Pharmacy Relationship Specialty Start Date End Date Momo Forbes PCP - General Family Practice 01/02/14 [facility] [address] [place] [address] Ingrid Santana, RN Registered Nurse Transplant 02/10/12 10/01/15 documented as of this encounter
--- OUTSIDE RECORDS SUMMARY | 2022-03-30 18:47 | XMS_ITS | Encounter Summary ---
:1950 Author Organization [place] Address [facility]0 [facility] [place] [address] Care Team Providers Name Role Phone Ingrid Santana RN Unavailable Momo Forbes Primary Care Provider Joseph Quintana MD Unavailable Encounter Details Date Type Department Care Team Description 05/16/2014 External Order Results The Transplant Ce nter Nurse, [facility] 2nd Floor, Clinic [address] [phone] Social History Tobacco Use Types Packs/Day Years [...] Associated Diagnosis Comme nts EXTERNAL LAB Routine 05/15/2014 8:16 AM Results f or this RESULTS CDT procedure are i n the results section. documented in this encounter Results (ABNORMAL) TXP External Lab Result (05/15/2014 8:16 AM CDT) Analysis Performed At [facility] Time Signature Sodium 141 135 - 145 LABDE SCAN (External) mmol/L Potassium 4.8 3.5 - 5.0 LABDE SCAN (External) mmol/L Chloride 110 (H) 98 - 107 LABDE SCAN (External) mmol/L (External) CO2 (External) 23 21 - 31 LABDE SCAN mmol/L Anion Gap 8 5 - 18 LABDE SCAN (External) Glucose 180 (H) 65 - 100 LABDE SCAN (External) mg/dL Calcium 10.1 8.5 - 10.5 LABDE SCAN (External) mg/dL Urea Nitrogen 29 (H) 8 - 25 LABDE SCAN (External) mg/dL Creatinine 1.38 (H) 0.72 - LABDE SCAN (External) 1.25 mg/dL BUN/Creatinine 21 (H) 10 - 20 LABDE SCAN Ratio (External) GFR Estimated >60 >60 LABDE SCAN (if ml/min/1.7 Gibraltarian) 3m2 (External) GFR Estimated 52 (L) >60 LABDE SCAN (External) ml/min/1.7 3m2 WBC Count 4.2 (L) 4.5 - 11.0 LABDE SCAN (External) thou/cu mm RBC Count 4.56 4.30 - LABDE SCAN (External) 5.90 mil/cu mm Hemoglobin 12.7 (L) 13.5 - LABDE SCAN (External) 17.5 g/dL Hematocrit 39.7 37.0 - LABDE SCAN (External) 53.0 % MCV (External) 87 80 - 100 LABDE SCAN fL MCH (External) 27.9 26.0 - LABDE SCAN 34.0 pg MCHC (External) 32.0 32.0 - LABDE SCAN 36.0 g/dL RDW (External) 14.9 11.5 - LABDE SCAN 15.5 % Platelet Count 111 (L) 140 - 440 LABDE SCAN (External) thou/cu mm MPV (External) 11.9 (H) 6.5 - 11.0 LABDE SCAN fL Specimen (Source) Anatomical Collection Method Collection Time Re ceived Time Location / / Volume Laterality 05/15/2014 8:16 AM CDT Narrative [facility] - 05/16/2014 10:38 AM CDT Verified by Mary Whitehead on 05/16/2014. Patient Reported LABORATORY Performing Organization Address City/State/ZIP Code Phon e Number [facility] LABDE SCAN documented in this encounter Visit Diagnoses Not on filedocumented in this encounter Care Teams Electrician Apprentice Relationship Specialty Start Date End Date Momo Forbes PCP - General Family Practice 01/02/14 [facility] [address] [place] [address] Ingrid Santana, RN Registered Nurse Transplant 02/10/12 10/01/15 Joseph Quintana, Assigned Nephrology 03/29/21 MD Provider [address] [place] [address] 353 [facility] [address] [place] [address] documented as of this encounter
--- OUTSIDE RECORDS SUMMARY | 2022-03-30 18:47 | XMS_ITS | Encounter Summary ---
:1950 Author Organization [place] Address [facility]0 [facility] [place] [address] Care Team Providers Name Role Phone Ingrid Santana RN Unavailable Momo Forbes Primary Care Provider Joseph Quintana MD Unavailable Encounter Details Date Type Department Care Team Description 07/03/2014 External Order Results The Transplant Ce nter Nurse, [facility] 2nd Floor, Clinic [address] [phone] Social History Tobacco Use Types Packs/Day Years [...] Associated Diagnosis Comme nts EXTERNAL LAB Routine 07/01/2014 8:27 AM Results f or this RESULTS COMPUTER INSTRUCTOR procedure are i n the results section. documented in this encounter Results (ABNORMAL) TXP External Lab Result (07/01/2014 8:27 AM COMPUTER INSTRUCTOR) [facility] Time Signature Sodium 140 135 - 145 LABDE SCAN (External) mmol/L Potassium 4.5 3.5 - 5.0 LABDE SCAN (External) mmol/L Chloride 110 (H) 98 - 107 LABDE SCAN (External) mmol/L (External) CO2 (External) 23 21 - 31 LABDE SCAN mmol/L Anion Gap 7 5 - 18 LABDE SCAN (External) Glucose 224 (H) 65 - 100 LABDE SCAN (External) mg/dL Calcium 10.0 8.5 - 10.5 LABDE SCAN (External) mg/dL Urea Nitrogen 25 8 - 25 LABDE SCAN (External) mg/dL Creatinine 1.51 (H) 0.72 - LABDE SCAN (External) 1.25 mg/dL BUN/Creatinine 17 10 - 20 LABDE SCAN Ratio (External) GFR Estimated 57 (L) >60 LABDE SCAN (if ml/min/1.7 Yemeni) 3m2 (External) GFR Estimated 47 (L) >60 LABDE SCAN (External) ml/min/1.7 3m2 WBC Count 4.8 4.5 - 11.0 LABDE SCAN (External) thou/cu mm RBC Count 4.76 4.30 - LABDE SCAN (External) 5.90 mil/cu mm Hemoglobin 13.2 (L) 13.5 - LABDE SCAN (External) 17.5 [...] LABDE SCAN (External) thou/cu mm MPV (External) 11.1 (H) 6.5 - 11.0 LABDE SCAN fL Specimen (Source) Anatomical Collection Method Collection Time Re ceived Time Location / / Volume Laterality 07/01/2014 8:27 AM COMPUTER INSTRUCTOR Narrative JESSICA PFT - 07/03/2014 2:18 PM COMPUTER INSTRUCTOR Verified by Xiomara Bello on 07/03/20 14. Patient Reported LABORATORY Performing Organization Address City/State/ZIP Code Phon e Number [facility] LABDE SCAN documented in this encounter Visit Diagnoses Not on filedocumented in this encounter Care Teams Assistant Plant Control Operator Relationship Specialty Start Date End Date Momo Forbes PCP - General Family Practice 01/02/14 [facility] [address] [place] [address] Ingrid Santana, RN Registered Nurse Transplant 02/10/12 10/01/15 Joseph Quintana, Assigned Nephrology 03/29/21 MD Provider [address] [place] [address] [address] [place], [place] [id number] documented as of this encounter
--- OUTSIDE RECORDS SUMMARY | 2022-03-30 18:47 | XMS_ITS | Encounter Summary ---
:1950 Author Organization [place] Address [facility] [place] [address] Care Team Providers Name Role Phone Ingrid Santana RN Unavailable Momo Forbes Primary Care Provider Joseph Quintana MD Unavailable Encounter Details Date Type Department Care Team Description 06/08/2014 External Order Results The Transplant Ce nter Nurse, [facility] 2nd Floor, Clinic [address] [phone] Social History Tobacco Use Types [...] External Lab Result (06/05/2014 8:30 AM CDT) [facility] Method Time Signature Sodium (External) 138 [...] 8:30 AM CDT Narrative JESSICA PFT - 06/08/2014 9:01 AM CDT Verified by Janee Alexis on 06/08/2014 . Patient Reported LABORATORY Performing Organization Address City/State/ZIP Code Phon e Number [facility] LABDE SCAN documented in this encounter Visit Diagnoses Not on filedocumented in this encounter Care Teams Ticket Maker Relationship Specialty Start Date End Date Momo Forbes PCP - General Family Practice 01/02/14 [facility] [address] [place] [address] Ingrid Santana, RN Registered Nurse Transplant 02/10/12 10/01/15 Joseph Quintana, Assigned Nephrology 03/29/21 MD Provider [address] [place] [address] [address] [place] [address] documented as of this encounter
--- OUTSIDE RECORDS SUMMARY | 2022-03-30 18:47 | XMS_ITS | Encounter Summary ---
:1950 Author Organization [place] Address [facility]0 [facility] [place] [address] Care Team Providers Name Role Phone Ingrid Santana RN Unavailable Momo Forbes Primary Care Provider Reason for Visit Reason Comments Heart Problem 2 m f/u Post op AFIB s/p DCC V. on warfarin 4 weeks Encounter Details Date Type Department Care Team Description [facility] (H[facility] (Primary Dx); [place] [facility] Enrique Maria pecified essential hypertension; Heart Other and unspecified hyperlipidemia; [facility] (diabetes mellitus), type 2 (H) Building [place] 4th Floor, Clinic 4B [address] [phone] [place], [place] (Work) [phone] Social History Tobacco Use Types Packs/Day Years [...] Sign Reading Time Taken Comments Blood Pressure 163/78 04/09/2014 12:28 lt arm, sitting lg PM CDT cuff Pulse 66 04/09/2014 12:28 PM CDT Temperature - - Respiratory Rate - - Oxygen Saturation 97% 04/09/2014 12:28 ra PM CDT Inhaled Oxygen - - Concentration Weight 119.8 kg (264 lb 3.2 04/09/2014 12:28 oz) PM CDT Height 182.9 cm (6') 04/09/2014 12:28 PM CDT Body Mass Index 35.83 04/09/2014 12:28 PM CDT documented in this encounter Patient Instructions Patient InstructionsRubi Howell RN - 04/09/2014 12:23 PM CDT We are looking for a bp 135/85 on average. Call in a month if your BP is running higher than that. Please contact me if you have any questions or concerns. Rubi Howell RN Cardiology Business Services Vice President documented in this encounter Progress Notes Joseph Rodriguez MD - 04/09/2014 1:06 PM CDT Joseph Carmona-* CC Post op afib HPI Since his surgery in January, Mr. Guthrie has not had any recurrent sxic afib. Moreover, he checks his pulse twice daily and it is has been regular. Since he had not had afib prior to his surgery, I think we can dc warfarin and resume asa. He will be seen frequently by MDs in the future given his renal txand dm. Mr. Guthrie's home bp runs about 160/90. He was on antihypertensives in the past, but they were stopped because of low bp (after surgery?). He has never been on a statin because, he thinks, his cholesterol has not been high. We discussed the concept of total risk. Past Medical History Diagnosis Date ??? Diabetes mellitus type II ??? HTN (hypertension) ??? Hyperlipidemia ??? Diabetic peripheral neuropathy 2002 on insulin x 4 years ??? Retinopathy due to secondary diabetes mellitus ??? Gout ??? Anemia ??? Thrombocytopenia ??? Depression ??? Dialysis patient 08/30/2011 ??? Renal disease [facility] Past Surgical History Procedure Laterality Date ??? [...] Surgeon: Migel Merchant MD; Location: [facility] OR Current outpatient prescriptions:amLODIPine (NORVASC) 5 MG tablet, Take 1 tablet (5 mg) by mouth daily, Disp: 90 tablet, Rfl: 3, ; rosuvastatin (CRESTOR) 10 MG tablet, Take 1 tablet (10 mg) by mouth daily, Disp: 90 tablet, Rfl: 3, ; aspirin 81 MG tablet, Take 1 tablet (81 mg) by mouth daily, Disp: 180tablet, Rfl: , ; valGANciclovir (VALCYTE) 450 MG tablet, Take 2 tablets (900 mg) by mouth daily, Disp: 60 tablet, Rfl: 0, PROGRAF 1 MG capsule, Take 1 capsule (1 mg) by mouth 2 times daily (total dose 1.5 mg twice daily), Disp: 60 capsule, Rfl: 6, ; PROGRAF 0.5 MG capsule, Take 1 capsule (0.5 mg) by mouth 2 times daily (total dose 1.5 mg twice daily), Disp: 60 capsule, Rfl: 6, ; magnesium oxide (MAG-OX) 400 MG tablet, Take 1 tablet (400 mg) by mouth 2 times daily, Disp: 60 tablet, Rfl: 5, Cholecalciferol (VITAMIN D PO), 5000 1 tab three times per week, Disp: , Rfl: , ; clotrimazole (MYCELEX) 10 MG LOZG, Place 1 lozenge (10 mg) inside cheek 3 times daily, Disp: 90 each, Rfl: 2, ; sulfamethoxazole-trimethoprim (BACTRIM,SEPTRA) 400-80 MG per tablet, Take 1 tablet by mouth daily (Patient ta judy differently: Take 1 tablet by mouth daily Hold), Disp: 31 tablet, Rfl: 11, mycophenolate (CELLCEPT-BRAND NAME) 250 MG capsule, Take 4 capsules (1,000 mg) by mouth 2 times daily, Disp: 240 capsule, Rfl: 11, ; senna-docusate (SENOKOT- S;PERICOLACE) 8.6-50 MG per tablet, Take 2 tablets by mouth daily as needed for constipation, Disp: 15 tablet, Rfl: 0, ; pantoprazole (PROTONIX) 40 MG enteric coated tablet, Take 1 tablet (40 mg) by mouth daily, Disp: 30 tablet, Rfl: 1, Calcium Carbonate-Vitamin D (CALCIUM + D PO), Take 1 tablet by mouth daily (dose unknown), Disp: , Rfl: , ; LANTUS VIAL 100 UNITS/ML SC SOLN, Inject 15 Units Subcutaneous every evening , Disp: , Rfl: ,; HumaLOG VIAL 100 UNITS/ML SOLN, Inject 3-13 Units Subcutaneous 3 times daily (before meals) Patient reported his dose 10-12 unit 2-3 times daily before meals, Disp: , Rfl: , sertraline (ZOLOFT) 100 MG tablet, Take 100 mg by mouth daily., Disp: , Rfl: , No Known Allergies History Social History ??? Marital Status: Single Spouse Name: N/A Number of Children: N/A ??? 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 Smoking status: Former Smoker -- 5 years Types: Cigars Quit date: 08/22/2006 ??? Smokeless tobacco: Never Used ??? Alcohol Use: 0.0 oz/week 0 drink(s) per week Comment: occasional drink. ??? Drug Use: No ??? Sexually Active: None Other Topics Concern ??? Blood Transfusions No ??? Seat Belt Yes Social History Narrative Review of Systems: general-stable wt ENT-no tinnitus Psych-no psychosis Neurol-no seizure Cardiac-no syncope Pulmonary-no hemoptysis GI-no melena -no hematuria Skin-no rash Heme-no bruising BP 163/78 Pulse 66 Ht 1.829 m (6') Wt 119.84 kg (264 lb 3.2 oz) BMI 35.82 kg/m2 SpO2 97% Physical Exam: General-no distress, overweight Head-normocephalic, no pallor or cyanosis Eyes-nl sclera, EOMI Neck-no bruit , nl thyroid Lungs-clear to ausculation and percussion, normal respiratory effort Cor-soft s4 no s3 or murmur, LV impulse not appreciated, no venous distension, normal carotid, radial and pedal pulses Abd-soft, no rebound or tenderness Skin-no edema, cyanosis, clubbing or ulcers Neurol-nl gait, oriented X3 Psych-nl affect Admission on 04/01/2014, Discharged on 04/01/2014 Component Date Value Range Status ??? Hemoglobin 04/01/2014 10.2* 13.3 - 17.7 g/dL Final ??? Potassium 04/01/2014 4.1 3.4 - 5.3 mmol/L Final ??? Interpretation ECG 04/01/2014 Click View Image link to view waveform and result Final ??? Glucose 04/01/2014 158* 60 - 99 mg/dL Final ??? INR 04/01/2014 1.64* 0.86 - 1.14 Final ??? Color Urine 04/01/2014 Yellow Final ??? Appearance Urine 04/01/2014 Clear Final ??? Glucose Urine 04/01/2014 30* NEG mg/dL Final ??? Bilirubin Urine 04/01/2014 Negative NEG Final ??? Ketones Urine 04/01/2014 Negative NEG mg/dL Final ??? Specific [place] Urine 04/01/2014 1.017 1.003 - 1.035 Final ??? Blood Urine 04/01/2014 Moderate* NEG Final ??? pH Urine 04/01/2014 6.0 5.0 - 7.0 pH Final ??? Protein Albumin Urine 04/01/2014 10* NEG mg/dL Final ??? Urobilinogen mg/dL 04/01/2014 Normal 0.0 - 2.0 mg/dL Final ??? Nitrite Urine 04/01/2014 Negative NEG Final ??? Leukocyte Esterase Urine 04/01/2014 Negative NEG Final ??? Source 04/01/2014 Unspecified Urine Final ??? WBC Urine 04/01/2014 2 0 - 2 /HPF Final ??? RBC Urine 04/01/2014 30* 0 - 2 /HPF Final ? ? Squamous Epithelial /HPF Urine 04/01/2014 <1 0 - 1 /HPF Final ??? Specimen Description 04/01/2014 Unspecified Urine Final ??? Special Requests 04/01/2014 Specimen received in preservative Final ??? Culture Micro 04/01/2014 No growth Final ??? Micro Report Status 04/01/2014 FINAL 04/02/2014 Final ??? Glucose 04/01/2014 149* 60 - 99 mg/dL Final Results for orders placed during the hospital encounter of 04/01/14 HEMOGLOBIN Result Value Range Hemoglobin 10.2 (*) 13.3 - 17.7 g/dL POTASSIUM Result Value Range Potassium 4.1 3.4 - 5.3 mmol/L GLUCOSE BY METER Result Value Range Glucose 158 (*) 60 - 99 mg/dL INR Result Value Range INR 1.64 (*) 0.86 - 1.14 ROUTINE UA WITH MICROSCOPIC Result Value Range Color Urine Yellow Appearance Urine Clear Glucose Urine 30 (*) NEG mg/dL Bilirubin Urine Negative NEG Ketones Urine Negative NEG mg/dL Specific [place] Urine 1.017 1.003 - 1.035 Blood Urine Moderate (*) NEG pH Urine 6.0 5.0 - 7.0 pH Protein Albumin Urine 10 (*) NEG mg/dL Urobilinogen mg/dL Normal 0.0 - 2.0 mg/dL Nitrite Urine Negative NEG Leukocyte Esterase Urine Negative NEG Source Unspecified Urine WBC Urine 2 0 - 2 /HPF RBC Urine 30 (*) 0 - 2 /HPF Squamous Epithelial /HPF Urine <1 0 - 1 /HPF GLUCOSE BY METER Result Value Range Glucose 149 (*) 60 - 99 mg/dL EKG 12-LEAD, TRACING ONLY Result Value Range Interpretation ECG Click View Image link to view waveform and result URINE CULTURE Result Value Range Specimen Description Unspecified Urine Special Requests Specimen received in preservative Culture Micro No growth Micro Report Status FINAL 04/02/2014 Assessment / Plan Post op afib, no known recurrence Dc warfarin Call if pulse is irregular or sx suggest afib HTN, Amlodipine 5 qd (Mr. Guthrie wants to start modestly even tho two drugs will prob be needed) Call in 1 month Increase amlodipine to 10 qd or change to amlodipine-benazipirl High risk for stroke, CVD Rosuvastatin 10 mg daily Joseph Rodriguez documented in this encounter Nursing Notes Rubi Howell RN - 04/09/2014 12:43 PM CDT Patient stated he understood all health information given and agreed to call with further questions or concerns. Araseli De La Rosa CMA - 04/09/2014 12:28 PM CDT Chief Complaint Patient presents with ??? Heart Problem 2 m f/u Post op AFIB s/p DCCV. on warfarin 4 weeks documented in this encounter Plan of Treatment Not on filedocumented as of this encounter Visit Diagnoses Diagnosis Atrial fibrillation (H) - Primary Atrial fibrillation Unspecified essential hypertension Other and unspecified hyperlipidemia DM (diabetes mellitus), type 2 (H) Type II or unspecified type diabetes aung litus without mention of complication, not stated as uncontrolled documented in this encounter Care Teams Chain Carrier Relationship Specialty Start Date End Date Momo Forbes PCP - General Family Practice 01/02/14 [facility] [address] [place] [address] Ingrid Santana, RN Registered Nurse Transplant 02/10/12 10/01/15 documented as of this encounter
--- OUTSIDE RECORDS SUMMARY | 2022-03-30 18:47 | XMS_ITS | Encounter Summary ---
:1950 Author Organization [place] Address [facility] [place] [address] Care Team Providers Name Role Phone Ingrid Santana RN Unavailable Momo Forbes Primary Care Provider Reason for Visit Reason Onset Date Comments Pre Visit Planning - Done 05/13/2014 6 week f/u pos t op afib. medication changes last visit. Encounter Details Date Type Department Care Team Description 05/13/2014 PRE VISIT [facility] [address] Pre Visit Planning - Physicians Orestes Hernandez MD Done (6 week f/u post [facility] op afib. medication Building [place] changes last visit. ) 4th Floor, Clinic 4B [phone] [place] [address] (Wo rk) [phone] Social History Tobacco Use Types Packs/Day Years [...] this encounter Miscellaneous Notes Telephone Encounter - Rubi Howell RN - 05/13/2014 1:19 PM CDT LAST CLINIC VISIT... 09 April 2014 Post op afib, no known recurrence Dc warfarin Call if pulse is irregular or sx suggest afib HTN, Amlodipine 5 qd (Mr. Guthrie wants to start modestly even tho two drugs will prob be needed) Call in 1 month Increase amlodipine to 10 qd or change to amlodipine-benazipirl High risk for stroke, CVD Rosuvastatin 10 mg daily ECHO.. 04 February 2014 Technically difficult study. Extremely difficult acoustic windows despite the use of contrast for endcardial border definition. Global and regional left ventricular function is normal with an EF of 55-60%. NMI ADENOSINE... 15 February 2012 1. Normal study. 2. There is no evidence of relative ischemia during adenosine induced hyperemia. 3. Left ventricular size is moderately dilated at rest. Transient ischemic dilation of the left ventricle did not occur. 4. The left ventricular ejection fraction is 46 % and there are no regional wall motion abnormalities. ECHO... 08 February 2012 No significant valvular abnormalities were noted.Mild to moderate concentric wall thickening consistent with left ventricular hypertrophy is present. Global and regional left ventricular function is normal with an EF of 55-60%. Grade II of diastolic dysfunction ( pseudonormal pattern) Right ventricular function, chamber size, wall motion, and thickness are normal. Pulmonary artery systolic pressure cannot be assessed. The inferior vena cava is normal. No pericardial effusion is present. documented in this encounter Plan of Treatment Not on filedocumented as of this encounter Visit Diagnoses Not on filedocumented in this encounter Care Teams Sales Associate Relationship Specialty Start Date End Date Momo Forbes PCP - General Family Practice 01/02/14 [facility] [address] [place] [address] Ingrid Santana RN Registered Nurse Transplant 02/10/12 10/01/15 documented as of this encounter
--- OUTSIDE RECORDS SUMMARY | 2022-03-30 18:47 | XMS_ITS | Encounter Summary ---
:1950 Author Organization [place] Address [address] [place] [address]. [place] [address] Care Team Providers Name Role Phone Ingrid Santana RN Unavailable Momo Forbes Primary Care Provider Reason for Visit Reason Onset Date Comments Refill Request 04/26/2014 Encounter Details Date Type Department Care Team Description 04/26/2014 Refill Nephrology Shiva Kahn RN Refill Request 2nd Floor, Clinic 2A [facility] [place] [phone] [place] [address] [place] [phone] Social History Tobacco Use Types Packs/Day [...] transplant documented in this encounter Care Teams Auto Repair Shop Manager Relationship Specialty Start Date End Date Momo Forbes PCP - General Family Practice 01/02/14 [facility] [address] [place] [address] Ingrid Santana, RN Registered Nurse Transplant 02/10/12 10/01/15 documented as of this encounter
--- OUTSIDE RECORDS SUMMARY | 2022-03-30 18:47 | XMS_ITS | Encounter Summary ---
:1950 Author Organization [place] Address [address] [place] [address] Care Team Providers Name Role Phone Ingrid Santana RN Unavailable Momo Forbes Primary Care Provider Encounter Details Date Type Department Care Team Description 04/22/2014 Orders Only [facility], [facility], [place] [address] [phone] [place] [address] 068 [place] [address] (Wo rk) Social History Tobacco [...] Associated Comments Diagnosis TACROLIMUS BY TANDEM Routine 05/17/2014 8:17 AM R esults for this MASS SPECTROMETRY CDT procedure are in the results section. TACROLIMUS BY TANDEM Routine 05/15/2014 8:15 AM R esults for this MASS SPECTROMETRY CDT procedure are in the results section. TACROLIMUS BY TANDEM Routine 05/10/2014 8:50 AM R esults for this MASS SPECTROMETRY CDT procedure are in the results section. TACROLIMUS BY TANDEM Routine 05/07/2014 8:15 AM R esults for this MASS SPECTROMETRY CDT procedure are in the results section. TACROLIMUS BY TANDEM Routine 05/03/2014 8:13 AM R esults for this MASS SPECTROMETRY CDT procedure are in the results section. TACROLIMUS BY TANDEM Routine 04/30/2014 8:20 AM R esults for this MASS SPECTROMETRY CDT procedure are in the results section. TACROLIMUS BY TANDEM Routine 04/26/2014 8:30 AM R esults for this MASS SPECTROMETRY CDT procedure are in the results section. TACROLIMUS BY TANDEM Routine 04/24/2014 9:00 AM R esults for this MASS SPECTROMETRY CDT procedure are in the results section. documented in this encounter Results (ABNORMAL) Tacrolimus level (05/17/2014 8:17 AM CDT) [facility] Method Time Signature Tacrolimus Last 05/16/2014 [facility] Dose 2000 [facility] Tacrolimus 4.4 (L) 5.0 - [facility] Level 15.0 ug/L [facility] Comment: Tacrolimus Reference Range Kidney Transplant [...] Time (Source) Location / / Volume Laterality 05/17/2014 8:17 AM 4 1:18 CDT PM CDT Deysi Alicea MD LAB - BLOOD ORDERABLES Performing Organization Address City/State/ZIP Code Phon e Number [facility] 500 [place], [place] [phone] [place] [address] [facility] (ABNORMAL) Tacrolimus level (05/15/2014 8:15 AM CDT) [facility] gist Method Time Signature Tacrolimus Last 05/14/14 [facility] Dose 2000 [facility] Tacrolimus 4.6 (L) 5.0 - [facility] Level 15.0 ug/L [facility] Comment: Tacrolimus Reference Range Kidney Transplant [...] Time (Source) Location / / Volume Laterality 05/15/2014 8:15 AM 4 CDT 11:30 AM CDT Deysi Alicea MD LAB - BLOOD ORDERABLES Performing Organization Address City/State/ZIP Code Phon e Number [facility] 500 [place], [place] [phone] [place] [address] [facility] Tacrolimus level (05/10/2014 8:50 AM CDT) [facility] gist Method Time Signature Tacrolimus Not Provided [facility] Last Dose [facility] Tacrolimus 14.3 5.0 - [facility] Level 15.0 ug/L [facility] Comment: Tacrolimus Reference Range Kidney Transplant [...] Time (Source) Location / / Volume Laterality 05/10/2014 8:50 AM 4 2:32 CDT PM CDT Deysi Alicea MD LAB - BLOOD ORDERABLES Performing Organization Address City/State/ZIP Code Phon e Number [facility] 500 [place], [place] [phone] [place] [address] [facility] (ABNORMAL) Tacrolimus level (05/07/2014 8:15 AM CDT) [facility] gist Method Time Signature Tacrolimus Last 05/06/14 [facility] Dose 2000 [facility] Tacrolimus 15.9 (H) 5.0 - [facility] Level 15.0 ug/L [facility] Comment: Tacrolimus Reference Range Kidney Transplant [...] Time (Source) Location / / Volume Laterality 05/07/2014 8:15 AM 4 CDT 11:22 AM CDT Mingo Dangelo MD LAB - BLOOD ORDERABLES Performing Organization Address City/State/ZIP Code Phon e Number [facility] 500 [place], [place] [phone] [place] [address] [facility] Tacrolimus level (05/03/2014 8:13 AM CDT) [facility] gist Method Time Signature Tacrolimus Last [facility] Dose 2000 [facility] Tacrolimus 8.8 5.0 - [facility] Level 15.0 ug/L [facility] Comment: Tacrolimus Reference Range Kidney Transplant [...] Time (Source) Location / / Volume Laterality 05/03/2014 8:13 AM 4 3:08 CDT PM CDT Deysi Alicea MD LAB - BLOOD ORDERABLES Performing Organization Address City/State/ZIP Code Phon e Number [facility] 500 [place], [place] [phone] [place] [address] [facility] Tacrolimus level (04/30/2014 8:20 AM CDT) [facility] gist Method Time Signature Tacrolimus Last 04/29/14 [facility] Dose 2000 [facility] Tacrolimus 12.6 5.0 - [facility] Level 15.0 ug/L [facility] Comment: Tacrolimus Reference Range Kidney Transplant [...] Time (Source) Location / / Volume Laterality 04/30/2014 8:20 AM 4 CDT 11:13 AM CDT Deysi Alicea MD LAB - BLOOD ORDERABLES Performing Organization Address City/State/ZIP Code Phon e Number [facility] 500 [place], [place] [phone] [place] [address] [facility] Tacrolimus level (04/26/2014 8:30 AM CDT) [facility] gist Method Time Signature Tacrolimus Last 04/25/14 [facility] Dose 1900 [facility] Tacrolimus 10.1 5.0 - [facility] Level 15.0 ug/L [facility] Comment: Tacrolimus Reference Range Kidney Transplant [...] Time (Source) Location / / Volume Laterality 04/26/2014 8:30 AM 4 2:39 CDT PM CDT Bisi Rabago MD LAB - BLOOD ORDERABLES Performing Organization Address City/State/[facility] Phon e Number [facility] 500 [place], [place] [phone] [place] [address] [facility] Tacrolimus level (04/24/2014 9:00 AM CDT) [facility] gist Method Time Signature Tacrolimus Last 04/23/14 [facility] Dose 1900 [facility] Tacrolimus 13.1 5.0 - [facility] Level 15.0 ug/L [facility] Comment: Tacrolimus Reference Range Kidney Transplant [...] Time (Source) Location / / Volume Laterality 04/24/2014 9:00 AM 4 CDT 11:12 AM CDT Mingo Dangelo MD LAB - BLOOD ORDERABLES Performing Organization Address City/State/ZIP Code Phon e Number [facility] 500 [place], [place] [phone] [place] [address] LABS documented in this encounter Visit Diagnoses Not on filedocumented in this encounter Care Teams Carpet Installation Specialist Relationship Specialty Start Date End Date Momo Forbes PCP - General Family Practice 01/02/14 [facility] [address] [place] [address] Ingrid Santana, RN Registered Nurse Transplant 02/10/12 10/01/15 documented as of this encounter
--- OUTSIDE RECORDS SUMMARY | 2022-03-30 18:47 | XMS_ITS | Encounter Summary ---
:1950 Author Organization [place] Address Formerly [facility] [address] Care Team Providers Name Role Phone Ingrid Santana RN Unavailable Momo Forbes Primary Care Provider Joseph Quintana MD Unavailable Encounter Details Date Type Department Care Team Description 05/27/2014 External Order Results [facility] Transplant [facility] nter Nurse, [facility] 2nd Floor, Clinic [address] [phone] Social History Tobacco Use Types Packs/Day Years [...] Associated Diagnosis Comme nts EXTERNAL LAB Routine 05/24/2014 8:11 AM Results f or this RESULTS CDT procedure are i n the results section. documented in this encounter Results (ABNORMAL) TXP External Lab Result (05/24/2014 8:11 AM CDT) Analysis Performed At [facility] Time Signature Sodium 142 135 - 145 LABDE SCAN (External) mmol/L Potassium 4.7 3.5 - 5.0 LABDE SCAN (External) mmol/L Chloride 109 (H) 98 - 107 LABDE SCAN (External) mmol/L (External) CO2 (External) 25 21 - 31 LABDE SCAN mmol/L Anion Gap 8 5 - 18 LABDE SCAN (External) Glucose 183 (H) 65 - 100 LABDE SCAN (External) mg/dL Calcium 10.6 (H) 8.5 - 10.5 LABDE SCAN (External) mg/dL Urea Nitrogen 24 8 - 25 LABDE SCAN (External) mg/dL Creatinine 1.38 (H) 0.72 - LABDE SCAN (External) 1.25 mg/dL BUN/Creatinine 17 10 - 20 LABDE SCAN Ratio (External) GFR Estimated >60 >60 LABDE SCAN (if ml/min/1.7 Uzbek) 3m2 (External) GFR Estimated 52 (L) >60 LABDE SCAN (External) ml/min/1.7 3m2 WBC Count 3.1 (L) 4.5 - 11.0 LABDE SCAN (External) thou/cu mm RBC Count 4.51 4.30 - LABDE SCAN (External) 5.90 mil/cu [...] LABDE SCAN (External) thou/cu mm MPV (External) 11.6 (H) 6.5 - 11.0 LABDE SCAN fL Specimen (Source) Anatomical Collection Method Collection Time Re ceived Time Location / / Volume Laterality 05/24/2014 8:11 AM CDT Yohana LOPEZ PFT - 05/27/2014 2:16 PM CDT Verified by Jessica Major on 014. Patient Reported LABORATORY Performing Organization Address City/State/ZIP Code Phon e Kristina LOPEZ PFT LABDE SCAN documented in this encounter Visit Diagnoses Not on filedocumented in this encounter Care Teams Laborer Airport Maintenance Relationship Specialty Start Date End Date Momo Forbes PCP - General Family Practice 01/02/14 [facility] [address] [place] [address] Ingrid Santana, RN Registered Nurse Transplant 02/10/12 10/01/15 Joseph Quintana, Assigned Nephrology 03/29/21 MD Provider [address] [place] [address] 353 [facility] [address] [place] [address] documented as of this encounter
--- OUTSIDE RECORDS SUMMARY | 2022-03-30 18:47 | XMS_ITS | Encounter Summary ---
:1950 Author Organization [place] Address [address] [facility] [place] [address] Care Team Providers Name Role Phone Ingrid Santana RN Unavailable Momo Forbes Primary Care Provider Reason for Visit Auth/Cert - Closed Specialty Diagnoses / Procedures Referred By Contact Refer red To Contact Surgery Diagnoses S/P Kidney Transplant Uu Periop Procedures COMBINED CYSTOSCOPY, REMOVE STENT(S) 500 [place] [address] Phone: Fax: Referral ID Status Reason Start Date Expiration Date Visits Requ ested Visits Authorized [id number] Closed 1 1 Encounter Details Date Type Department Care Team Description 04/01/2014 Anesthesia Event [facility] Clari Torres MD PeriOp Services [facility] ANESTHESIA 500 [place] [phone] [place] [address] [place] [address] (Wo rk) Anesthesia Record Procedure Summary Procedure Name Responsible Anesthesia Start Anesthesia Stop Time Anesthesiologist Time Romoval of Right Clari Torres MD 04/01/14 0829 04/01/14 0911 Double J Stent (Right Urethra) Events Date Time Event Comment 04/01/2014 0712 0829 An Start 0835 An Start Data 0844 AN INCISION 0900 an stop data 0911 An Stop Electronically s igned by Addis Brannon on April 01, 2014 9:11 AM Name Total midazolam 1mg/mL 2 mg fentanyl 50mcg/mL 50 mcg lidocaine 2% 60 mg propofol 10mg/mL 83.72 mg ondansetron 2mg/mL 4 mg ceFAZolin (ANCEF) IVPB 3 g (pre-mix) 0 g levofloxacin (LEVAQUIN) IVPB 500 mg 500 mg sodium chloride 0.9% 400 mL Agents Name O2 Exp Isoflurane O2 Delivery Device Ins Isoflurane O2 Auxiliary Blood No blood administrations on file. Lines, Drains, and Airways Type Details Placement Removal Hemodialysis Vascular Arteriovenous fistula; 02/02/14 1507 by Access Right; Arm Incision/Surgical Site 02/02/14; Right; 02/02/14 0000 by 4 0921 by Abdomen; 04/01/14; 0921 Levon Chappell RN Ngek ia, Fatima S, RN CVC Triple Lumen 02/02/14; 1815 02/02/14 1815 by 04/01/14 0922 by Myriam Mandujano DO Ngekia, Fatima S, RN Closed/Suction Drain 02/02/14; 2146; 1; 02/02/14 2146 by 4 0921 by Right; RLQ; Bulb; 19 Levon Chappell RN Ngekia, Fatima S, French RN Peripheral IV 04/01/14; 0700; 20 G; 04/01/14 0700 by 04/01/14 1212 by Left; Hand; Alcohol; Addis Brannon Fatima S, Injectable; Celso Fletcher APRN CRNA RN well; procedure documented in this encounter Social History Tobacco Use Types Packs/Day Years [...] on file documented as of this encounter OR Notes Anesthesia Postprocedure Evaluation - Clari Torres MD - 04/01/2014 9:27 AM CDT Anesthesia Post-Evaluation Note Patient: Diego Guthrie Patient location: Phase II Procedure(s) Performed: Procedure(s) with comments: COMBINED CYSTOSCOPY, REMOVE STENT(S) - Romoval of Right Double J Stent Anesthesia type: MAC Post Op Diagnosis: * No post-op diagnosis entered * No value filed. Patient Condition Respiratory Function (RR / SpO2 / Airway Patency): Satisfactory Cardiac Function (HR / Rhythm / BP): Satisfactory Mental Status: Satisfactory. Able to fully participate in evaluation Temperature: Satisfactory Pain Control: Satisfactory PONV: None Beta-Thelma Therapy: None indicated Hydration Status: Satisfactory Last Vitals: Filed Vitals: 04/01/14 0647 04/01/14 0904 04/01/14 0915 BP: 170/86 153/83 163/88 Temp: 36.4 ??C (97.6 ??F) 36.5 ??C (97.7 ??F) Resp: 12 14 16 SpO2: 97% 96% 98% Additional Comments: Anesthesia Preprocedure Evaluation - Clari Torres MD - 04/01/2014 7:18 AM CDT Anesthesia Evaluation . Pt has had prior anesthetic. Type: General No history of anesthetic complications ROS/MED HX ENT/Pulmonary: Neurologic: - neg neurologic ROS Cardiovascular: (+) hypertension Peripheral Vascular Disease. : . . . :. . METS/Exercise Tolerance: Hematologic: - neg hematologic ROS Musculoskeletal: Comment: S/p left below the knee amputation GI/Hepatic: - neg GI/hepatic ROS Renal/Genitourinary: (+) chronic renal disease type: ESRD Pt does not require dialysis Pt has history of transplant date:01/2014 Endo: (+) type II DM Using insulin - not using insulin pump Diabetic complications: nephropathy neuropathyretinopathy, . Psychiatric: (+) psychiatric history depression Infectious Disease: - neg infectious disease ROS Malignancy: Other: Physical Exam Normal systems: cardiovascular, pulmonary and dental Airway Mallampati: II TM distance: >3 FB Neck ROM: full Dental Cardiovascular Pulmonary Anesthesia Plan ASA Score: 3 . Plan for MAC - with Intravenous induction.Maintenance will be TIVA. Routine analgesia and antiemetics to be used for post-operative care. Anesthetic plan, risks, benefits and alternatives discussed with: patient or administrative representative. I agree with the plan written by the resident History & Physical Review History and physical reviewed; no interval change. . documented in this encounter Miscellaneous Notes Anesthesia Care Transfer Note - Addis Brannon APRN CRNA - 04/01/2014 9:06 AM CDT Anesthesia Care Transfer Note Patient: Diego Guthrie Transferred to: Phase II Patient vital signs: stable Airway: none, pt on RA with spont resps and responsive. States comfort. documented in this encounter Plan of Treatment Not on filedocumented as of this encounter Visit Diagnoses Not on filedocumented in this encounter Administered Medications Inactive Administered Medications - up to 3 most recent administrations Medication Order MAR Action Action Date Dose Rate Site 0.9 % sodium chloride IV solution New Bag 04/01/2014 8:29 AM CDT CONTINUOUS PRN, Anesthesia Intra-op, Starting on Tue04/01/14 at 0829, Until Tue04/01/14 at 0911 fentaNYL (SUBLIMAZE) injection Given 04/01/2014 8:40 AM CDT 50 mcg PRN, moderate to severe pain, Starting on Tue04/01/14 at 0840, Anesthesia Intra-op levofloxacin (LEVAQUIN) IVPB 500 mg Given 04/01/2014 8:50 AM CDT 500 mg Routine, 500 mg, Intravenous, 30 MIN PRE-OP, Starting on Tue04/01/14 at 0747, For 1 dose, Administer in or after urine culture Administer at a rate of no greater than 100mL/hr, Indications: Perioperative Pharmacoprophylaxis, Pre-procedure lidocaine injection 2% (MDV) Given 04/01/2014 8:40 AM CDT 60 mg PRN, Starting on Tue04/01/14 at 0840, Anesthesia Intra-op midazolam (VERSED) injection Given 04/01/2014 8:35 AM CDT 1 mg PRN, anxiety, Starting on Tue04/01/14 at 0829, Anesthesia Intra-op Given 04/01/2014 8:29 AM CDT 1 mg ondansetron (ZOFRAN) injection Given 04/01/2014 8:55 AM CDT 4 mg PRN, nausea, vomiting, Administer over 2-5 Minutes, Starting on Tue04/01/14 at 0855, Anesthesia Intra-op propofol (DIPRIVAN) New Bag 04/01/2014 8:40 AM CDT 50 mcg/kg/min 3 5.9 mL/hr injection 10 mg/mL vial CONTINUOUS PRN, Starting on Tue04/01/14 at 0840, Anesthesia Intra-op documented in this encounter Care Teams Mechanic Industrial Truck Relationship Specialty Start Date End Date Momo Forbes PCP - General Family Practice 01/02/14 [place] [address] Ingrid Santana, RN Registered Nurse Transplant 02/10/12 10/01/15 documented as of this encounter
--- OUTSIDE RECORDS SUMMARY | 2022-03-30 18:47 | XMS_ITS | Encounter Summary ---
:1950 Author Organization [place] Address [address] [place] [address] Care Team Providers Name Role Phone Ingrid Santana RN Unavailable Momo Forbes Primary Care Provider Encounter Details Date Type Department Care Team Description 05/22/2014 Orders Only [facility], [facility], [facility] jm [place] [address] [phone] [place] [address] 027 [place] [address] (Wo rk) Social History Tobacco [...] Associated Comments Diagnosis TACROLIMUS BY TANDEM Routine 06/17/2014 8:05 AM R esults for this MASS SPECTROMETRY CDT procedure are in the results section. TACROLIMUS BY TANDEM Routine 06/10/2014 7:52 AM R esults for this MASS SPECTROMETRY CDT procedure are in the results section. TACROLIMUS BY TANDEM Routine 06/05/2014 8:28 AM R esults for this MASS SPECTROMETRY CDT procedure are in the results section. TACROLIMUS BY TANDEM Routine 05/24/2014 8:05 AM R esults for this MASS SPECTROMETRY CDT procedure are in the results section. TACROLIMUS BY TANDEM Routine 05/24/2014 8:05 AM R esults for this MASS SPECTROMETRY CDT procedure are in the results section. documented in this encounter Results Tacrolimus level (06/17/2014 8:05 AM CDT) [facility] Method Time Signature Tacrolimus Last 06/16/14 [facility] Dose 2000 [facility] Tacrolimus 6.5 5.0 - [facility] Level 15.0 ug/L [facility] Comment: Tacrolimus Reference Range Kidney Transplant [...] Time (Source) Location / / Volume Laterality 06/17/2014 8:05 AM 4 CDT 11:38 AM CDT Bisi Rabago MD LAB - BLOOD ORDERABLES Performing Organization Address City/State/ZIP Code Phon e Number [facility] 500 [place], [place] [phone] [place] [address] [facility] Tacrolimus level (06/10/2014 7:52 AM CDT) [facility] gist Method Time Signature Tacrolimus Last 1999 [facility] Dose 06/09/14 [facility] Tacrolimus 7.9 5.0 - [facility] Level 15.0 ug/L [facility] Comment: Tacrolimus Reference Range Kidney Transplant [...] Time (Source) Location / / Volume Laterality 06/10/2014 7:52 AM 4 CDT 10:55 AM CDT Deysi Alicea MD LAB - BLOOD ORDERABLES Performing Organization Address City/State/ZIP Code Phon e Number [facility] [address] [place], [place] [phone] [place] [address] [facility] Tacrolimus level (06/05/2014 8:28 AM CDT) [facility] gist Method Time Signature Tacrolimus Last 1999 [facility] Dose 06/04/14 [facility] Tacrolimus 7.9 5.0 - [facility] Level 15.0 ug/L [facility] Comment: Tacrolimus Reference Range Kidney Transplant [...] Time (Source) Location / / Volume Laterality 06/05/2014 8:28 AM 4 CDT 11:23 AM CDT Mingo Dangelo MD LAB - BLOOD ORDERABLES Performing Organization Address City/[facility]/ZIP Code Phon e Number [facility] [address] LABS Tacrolimus level (05/24/2014 8:05 AM CDT) [facility] gist Method Time Signature Tacrolimus 05/23/14 [facility] Last Dose 20:00 [facility] Tacrolimus Test 5.0 - [facility] Level canceled - 15.0 ug/L [facility] entry error Specimen Anatomical Collection Method Collection Time Receive d Time (Source) Location / / Volume Laterality 05/24/2014 8:05 AM 4 2:49 CDT PM CDT Deysi Alicea MD LAB - BLOOD ORDERABLES Performing Organization Address City/State/ZIP Code Phon e Number [facility] [address] LABS Tacrolimus level (05/24/2014 8:05 AM CDT) [facility] gist Method Time Signature Tacrolimus Last 05/23/14 [facility] Dose 20[facility] Tacrolimus 5.8 5.0 - [facility] Level 15.0 ug/L [facility] Comment: Tacrolimus Reference Range Kidney Transplant [...] Time (Source) Location / / Volume Laterality 05/24/2014 8:05 AM 4 2:46 CDT PM CDT Deysi Alicea MD LAB - BLOOD ORDERABLES Performing Organization Address City/State/ZIP Code Phon e Number [facility] [address] [place], [place] [phone] [place] [address] LABS documented in this encounter Visit Diagnoses Not on filedocumented in this encounter Care Teams Plant Technician/Control Room Operator Relationship Specialty Start Date End Date Momo Forbes PCP - General Family Practice 01/02/14 [facility] [address] [place] [address] Ingrid Santana, RN Registered Nurse Transplant 02/10/12 10/01/15 documented as of this encounter
--- OUTSIDE RECORDS SUMMARY | 2022-03-30 18:47 | XMS_ITS | Encounter Summary ---
:1950 Author Organization [place] Address [address] [place] [address] Care Team Providers Name Role Phone Ingrid Santana RN Unavailable Momo Forbes Primary Care Provider Encounter Details Date Type Department Care Team Description 06/22/2014 Orders Only [facility], [facility], [facility] jm [place] [address] [phone] [place] [address] [address] [place] [address] (Wo rk) Social History Tobacco [...] Associated Comments Diagnosis TACROLIMUS BY TANDEM Routine 07/15/2014 8:25 AM R esults for this MASS SPECTROMETRY BUGGY MAN procedure are in the results section. TACROLIMUS BY TANDEM Routine 07/08/2014 8:15 AM R esults for this MASS SPECTROMETRY BUGGY MAN procedure are in the results section. TACROLIMUS BY TANDEM Routine 07/01/2014 8:25 AM R esults for this MASS SPECTROMETRY BUGGY MAN procedure are in the results section. TACROLIMUS BY TANDEM Routine 06/24/2014 8:30 AM R esults for this MASS SPECTROMETRY BUGGY MAN procedure are in the results section. documented in this encounter Results Tacrolimus level (07/15/2014 8:25 AM BUGGY MAN) [facility] gist Method Time Signature Tacrolimus Last 07/14/14 [facility] Dose 2000 [facility] Tacrolimus 8.1 5.0 - [facility] Level 15.0 ug/L [facility] Comment: Tacrolimus Reference Range Kidney [...] Time (Source) Location / / Volume Laterality 07/15/2014 8:25 AM 4 BUGGY MAN 10:56 AM BUGGY MAN Deysi Alicea MD LAB - BLOOD ORDERABLES Performing Organization Address City/State/ZIP Code Phon e Number [facility] [address] [place] [address] [facility] Tacrolimus level (07/08/2014 8:15 AM BUGGY MAN) [facility] gist Method Time Signature Tacrolimus Last 1999 [facility] Dose 07/07/14 [facility] Tacrolimus 8.6 5.0 - [facility] Level 15.0 ug/L [facility] Comment: Tacrolimus Reference Range Kidney [...] Time (Source) Location / / Volume Laterality 07/08/2014 8:15 AM 4 BUGGY MAN 11:03 AM BUGGY MAN Deysi Alicea MD LAB - BLOOD ORDERABLES Performing Organization Address City/State/ZIP Code Phon e Number [facility] [address] [place] [address] [facility] Tacrolimus level (07/01/2014 8:25 AM BUGGY MAN) [facility] gist Method Time Signature Tacrolimus Last 1999, [facility] Dose 06/30/14 [facility] Tacrolimus 9.3 5.0 - [facility] Level 15.0 ug/L [facility] Comment: Tacrolimus Reference Range Kidney [...] Time (Source) Location / / Volume Laterality 07/01/2014 8:25 AM 4 BUGGY MAN 12:11 PM BUGGY MAN Mingo Dangelo MD LAB - BLOOD ORDERABLES Performing Organization Address City/State/ZIP Code Phon e Number [facility] [address] [place] [address] [facility] Tacrolimus level (06/24/2014 8:30 AM BUGGY MAN) [facility] gist Method Time Signature Tacrolimus Last 1999 [facility] Dose 06/23/14 [facility] Tacrolimus 10.5 5.0 - [facility] Level 15.0 ug/L [facility] Comment: Tacrolimus Reference Range Kidney [...] Time (Source) Location / / Volume Laterality 06/24/2014 8:30 AM 4 BUGGY MAN 11:18 AM BUGGY MAN Deysi Alicea MD LAB - BLOOD ORDERABLES Performing Organization Address City/State/ZIP Code Phon e Number [facility] [address] [place] [address] [facility] documented in this encounter Visit Diagnoses Not on filedocumented in this encounter Care Teams Dock Operator Relationship Specialty Start Date End Date Momo Forbes PCP - General Family Practice 01/02/14 [facility] [address] [place] [address] Ingrid Santana, RN Registered Nurse Transplant 02/10/12 10/01/15 documented as of this encounter
--- OUTSIDE RECORDS SUMMARY | 2022-03-30 18:47 | XMS_ITS | Encounter Summary ---
:1950 Author Organization [place] Address [facility]0 [facility] [place] [address] Care Team Providers Name Role Phone Ingrid Santana RN Unavailable Momo Forbes Primary Care Provider Reason for Visit Reason Onset Date Comments Pre Visit Planning - Done 04/08/2014 2 m f/u Post o p AFIB s/p DCCV. on warfarin 4 weeks Encounter Details Date Type Department Care Team Description 04/08/2014 PRE VISIT [facility] [address] Pre Visit Planning - Physicians Orestes Hernandez MD Done (2 m f/u Post op [facility] AF IB s/p DCCV. on [facility] warfarin 4 weeks) 4th Floor, Clinic 4B [id number] [place] [address] (Wo rk) [phone] Social History Tobacco Use Types Packs/Day Years [...] Telephone Encounter - Rubi Howell RN - 04/08/2014 11:20 AM CDT LAST CLINIC VISIT... 18 February 2014 1. Post op afib in pt with normal LVEF, DM, HTN. SB on low dose metoprolol suggests SSS, tho that might have also been a postop phenomenon Warfarin for 4 wks Pt advised to check pulse daily and notify me if irregular Dc metoprolol Follow bp with home cuff DC asa---may resume after warfarin stopped ECHO.. 04 February 2014 Technically difficult study. [...] on filedocumented in this encounter Care Teams Drafting Teacher Relationship Specialty Start Date End Date Momo Forbes PCP - General Family Practice 01/02/14 [facility] [address] [place] [id number] Ingrid Santana, RN Registered Nurse Transplant 02/10/12 10/01/15 documented as of this encounter
--- OUTSIDE RECORDS SUMMARY | 2022-03-30 18:47 | XMS_ITS | Encounter Summary ---
:1950 Author Organization [place] Address [facility] [address] Care Team Providers Name Role Phone Ingrid Santana RN Unavailable Momo Forbes Primary Care Provider Joseph Quintana MD Unavailable Encounter Details Date Type Department Care Team Description 07/10/2014 External Order Results The Transplant Ce nter Nurse, [facility] 2nd Floor, Clinic [address] [id number] Social History Tobacco Use Types Packs/Day Years [...] Associated Diagnosis Comme nts EXTERNAL LAB Routine 07/08/2014 8:17 AM Results f or this RESULTS KINDERGARTEN ASSISTANT procedure are i n the results section. documented in this encounter Results (ABNORMAL) TXP External Lab Result (07/08/2014 8:17 AM KINDERGARTEN ASSISTANT) [facility] Sodium 138 135 - 145 LABDE SCAN (External) mmol/L Potassium 4.8 3.5 - 5.0 LABDE SCAN (External) mmol/L Chloride 109 (H) 98 - 107 LABDE SCAN (External) mmol/L (External) CO2 (External) 24 21 - 31 LABDE SCAN mmol/L Anion Gap 5 5 - 18 LABDE SCAN (External) Glucose 190 (H) 65 - 100 LABDE SCAN (External) mg/dL Calcium 10.0 8.5 - 10.5 LABDE SCAN (External) mg/dL Urea Nitrogen 23 8 - 25 LABDE SCAN (External) mg/dL Creatinine 1.40 (H) 0.72 - LABDE SCAN (External) 1.25 mg/dL BUN/Creatinine 16 10 - 20 LABDE SCAN Ratio (External) GFR Estimated >60 >60 LABDE SCAN (if ml/min/1.7 Iraqi) 3m2 (External) GFR Estimated 51 (L) >60 LABDE SCAN (External) ml/min/1.7 3m2 WBC Count 4.5 4.5 - 11.0 LABDE SCAN (External) thou/cu mm RBC Count 4.79 4.30 - LABDE SCAN (External) 5.90 mil/cu mm Hemoglobin 13.5 13.5 - LABDE SCAN (External) 17.5 g/dL Hematocrit 41.2 37.0 - LABDE SCAN (External) 53.0 % [...] ceived Time Location / / Volume Laterality 07/08/2014 8:17 AM KINDERGARTEN ASSISTANT Narrative JESSICA PFT - 07/10/2014 6:20 AM KINDERGARTEN ASSISTANT Verified by Janee Alexis on 07/10/2014 . Patient Reported LABORATORY Performing Organization Address City/State/ZIP Code Phon e Number [facility] documented in this encounter Visit Diagnoses Not on filedocumented in this encounter Care Teams Varnishing Unit Tool Setter Relationship Specialty Start Date End Date Momo Forbes PCP - General Family Practice 01/02/14 [facility] [address] [place] [address] Ingrid Santana, RN Registered Nurse Transplant 02/10/12 10/01/15 Joseph Quintana, Assigned Nephrology 03/29/21 MD Provider [address] [place] [address] [address] [place] [address] documented as of this encounter
--- OUTSIDE RECORDS SUMMARY | 2022-03-30 18:47 | XMS_ITS | Encounter Summary ---
:1950 Author Organization [place] Address [facility] [place] [address] Care Team Providers Name Role Phone Ingrid Santana RN Unavailable Momo Forbes Primary Care Provider Reason for Visit Reason Comments RECHECK 3 month Tx follow Up Encounter Details Date Type Department Care Team Description 05/13/2014 Office Visit Nephrology Deysi Alicea, DM (diabetes mellitus), type 2 (H) (Primary Dx); 2nd Floor, Clinic 2A S/P kidney transplant Tommy Wilburn [address] [phone] (Wo rk) [phone] Social History Tobacco Use Types Packs/Day Years [...] Sign Reading Time Taken Comments Blood Pressure 139/73 05/13/2014 4:30 PM CDT Pulse 53 05/13/2014 4:30 PM CDT Temperature 36.7 ??C (98.1 ??F) 05/13/2014 4:30 PM CDT Respiratory Rate - - Oxygen Saturation 97% 05/13/2014 4:30 PM CDT Inhaled Oxygen Concentration - - Weight 122.2 kg (269 lb 4.8 oz) 05/13/2014 4:30 PM CDT Height 182.9 cm (6') 05/13/2014 4:30 PM CDT Body Mass Index 36.52 05/13/2014 4:30 PM CDT documented in this encounter Progress Notes Deysi Alicea MD - 05/13/2014 4:33 PM CDT ASSESSMENT AND RECOMMENDATIONS: 1. 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 Monitor creatinine, hopefully it will improve with an improvement in Prograflevels 2. Immunosuppression management. He got 5 doses of Thymoglobulin as induction and is maintained on tacrolimus and CellCept. Prograf dose was adjusted down by coordinator 3. Hypertension -controlled 4. History of Afib post transplant, resolved; 5. Infection prophylaxis. He was positive for CMV and EBV (donor positive) . Valcyte and Clotrimazole troches d/marimar 6. GHM: d/c Protonix REASON FOR VISIT: Follow up on kidney transplant. HISTORY OF PRESENT ILLNESS: This is a very pleasant 64-year-old gentleman with past medical history significant for end-stage renal disease due to diabetic nephropathy, status post extended criteria donor kidney transplant from 59-year-old woman on 02/02/2014. Post transplant course was complicated by slow graft function; He has also developed a new onset atrial fibrillation; he was started on anticoagulationand discharged on Cumadin; Cumadin was stopped by power ballast machine operator during the follow up visit, as he wasfound to be in NSR. He is here for follow up visit. He fells well; Baseline creatinine is about 1.4- 1.5 mg/dl, although the last reading was higher (1.7 mg/dl) which is associated with the higher Prograf level. He has no DSA and BK PCR is negative. Reports gaining few pounds post transplant. Diabetes is overall controlled . Transplant Hx: Tx: DDKT Date: 02/02/2014 Present Maintenance IS: Tacrolimus and Mycophenolate mofetil Baseline Creatinine: TBD ROS: A comprehensive review of systems was obtained and negative, except as noted in the HPI or PMH. Active Medical Problems: Patient Active Problem List Diagnosis ??? Other and unspecified hyperlipidemia ??? Gout ??? Peripheral neuropathy ??? Diabetic retinopathy ??? Unspecified essential hypertension ??? Anemia, unspecified ??? DM (diabetes mellitus), type 2 ??? History of tobacco use ??? Thrombocytopenia ??? Other malaise and fatigue ??? Dialysis patient ??? Depression ??? Organ transplant candidate ??? Screening for other and unspecified cardiovascular conditions ??? ESRD (end stage renal disease) on [...] RECIPIENT DONOR; Surgeon: Migel Merchant MD; Location: [facility] ??? Cystoscopy, remove stent(s), combined 04/01/2014 Procedure: COMBINED CYSTOSCOPY, REMOVE STENT(S); Surgeon: Migel Merchant MD; Location: [facility] Family Hx: Family History Problem Relation Age of Onset ??? C.A.D. Father ??? Alzheimers Mother Personal Hx: History Social History ??? Marital Status: Single Spouse Name: N/A Number of Children: N/A ??? Years of Education: 14 Occupational History ??? 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 Smoking status: Former Smoker -- 5 years Types: Cigars Quit date: 08/22/2006 ??? Smokeless tobacco: Never Used ??? Alcohol Use: 0.0 oz/week 0 drink(s) per week Comment: occasional drink. ??? Drug Use: No ??? Sexual Activity: Not on file Other Topics Concern ??? Blood Transfusions No ??? Seat Belt Yes Social History Narrative Allergies: No Known Allergies Medications: Prior to Admission medications Medication Sig Start Date End Date Taking? Authorizing Provider METOPROLOL SUCCINATE ER PO Take 12.5 mg by mouth 2 times daily 02/10/14 Reported, Patient oxyCODONE (ROXICODONE) 5 MG immediate release tablet Take 1 tablet (5 mg) by mouth every 4 hours as needed for moderate to severe pain 02/08/14 Adeline Diaz MD warfarin (COUMADIN) 5 MG tablet Take 1 tablet (5 mg) by mouth daily Patient taking differently: Take 7.5 mg by mouth daily 02/08/14 Adeline Diaz MD valGANciclovir (VALCYTE) 450 MG tablet Take 1 tablet (450 mg) by mouth daily 02/08/14 Adeline Diaz MD sulfamethoxazole-trimethoprim (BACTRIM,SEPTRA) 400-80 MG per tablet Take 1 tablet by mouth daily 02/08/14 Adeline Diaz MD clotrimazole (MYCELEX) [address] 1 lozenge (10 mg) inside cheek 3 times daily 02/08/14 Adeline Diaz MD mycophenolate (CELLCEPT-BRAND NAME) 250 MG capsule Take 4 capsules (1,000 mg) by mouth 2 times daily02/08/14 Mary Lou Jackson NP tacrolimus (PROGRAF BRAND) 0.5 MG capsule Take 3 capsules (1.5 mg) by mouth 2 times daily Patient taking differently: Take 2 mg by mouth 2 times daily 02/08/14 Mary Lou Jackson NP senna-docusate (SENOKOT-S;PERICOLACE) 8.6-50 MG per tablet Take 2 tablets by mouth daily as needed for constipation 02/08/14 Adeline Diaz MD pantoprazole (PROTONIX) 40 MG enteric coated tablet Take 1 tablet (40 mg) by mouth daily 02/08/14 Adeline Diaz MD ondansetron (ZOFRAN) 4 MG tablet Take 1 tablet (4 mg) by mouth every 6 hours as needed for nausea 02/08/14 Adeline Daiz MD Calcium Carbonate-Vitamin D (CALCIUM + D PO) Take 1 tablet by mouth daily (dose unknown) Reported, Patient aspirin 81 MG tablet Take 1 tablet by mouth daily. Reported, Patient LANTUS VIAL 100 UNITS/ML SC SOLN Inject 15 Units Subcutaneous every evening Reported, Patient HumaLOG VIAL 100 UNITS/ML SOLN Inject 3-13 Units Subcutaneous 3 times daily (before meals) Patient reported his dose 10-12 unit 2-3 times daily before meals Reported, Patient sertraline (ZOLOFT) 100 MG tablet Take 100 mg by mouth daily. Reported, Patient zolpidem (AMBIEN) 10 MG tablet Take 10 mg by mouth nightly as needed. Reported, Patient Vitals: BP 139/73 Pulse 53 Temp(Src) 98.1 ??F (36.7 ??C) (Oral) Ht 1.829 m (6') Wt 122.154 kg (269 lb 4.8 oz) BMI 36.52 kg/m2 SpO2 97% Reviewed. Exam: GENERAL APPEARANCE: alert and no [...] mentation appears normal and affect normal Results: documented in this encounter Nursing Notes Yesenia Clements CMA - 05/13/2014 4:31 PM CDT Chief Complaint Patient presents with ??? RECHECK 3 month Tx follow Up Patient's vital, medications and allergies have been reviewed. Pt. Roomed and ready for provider. Yesenia Clements CMA documented in this encounter Plan of Treatment Not on filedocumented as of this encounter Visit Diagnoses Diagnosis DM (diabetes mellitus), type 2 (H) - Ana ashley Type II or unspecified type diabetes aung litus without mention of complication, not stated as uncontrolled S/P kidney transplant Kidney replaced by transplant documented in this encounter Care Teams Manager Technical Training Relationship Specialty Start Date End Date Momo Forbes PCP - General Family Practice 01/02/14 [facility] [address] [place] [phone] Ingrid Santana, RN Registered Nurse Transplant 02/10/12 10/01/15 documented as of this encounter
--- OUTSIDE RECORDS SUMMARY | 2022-03-30 18:48 | XMS_ITS | Encounter Summary ---
:1950 Author Organization [place] Address [facility] [place] [address] Care Team Providers Name Role Phone Ingrid Santana RN Unavailable Momo Forbes Primary Care Provider Reason for Visit Reason Onset Date Comments Pt. Information/instruction 03/14/2014 Encounter Details Date Type Department Care Team Description 03/14/2014 Telephone Self [facility] Bet[facility] Womack Pt . Interventional Radio martha Dangelo RN Information/instructio [address] [place] [phone] Social History Tobacco Use Types Packs/Day Years [...] on filedocumented in this encounter Care Teams Assembler Body Relationship Specialty Start Date End Date Momo Forbes PCP - General Family Practice 01/02/14 [facility] [address] [place] [address] Ingrid Santana RN Registered Nurse Transplant 02/10/1210/16 documented as of this encounter
--- OUTSIDE RECORDS SUMMARY | 2022-03-30 18:48 | XMS_ITS | Encounter Summary ---
:1950 Author Organization [place] Address [facility] [place] [address] Care Team Providers Name Role Phone Ingrid Santana RN Unavailable Momo Forbes Primary Care Provider Reason for Visit Reason Onset Date Comments Pre Visit Planning - Done 03/08/2014 Appointment on 03/11/2014 Encounter Details Date Type Department Care Team Description 03/08/2014 Telephone Nephrology Alexandria Caldera, Pre Visit Planning - 2nd Floor, Clinic 2A MANAGER SOFTWARE DEVELOPMENT Done (Appointment on Sanders Akila 03/11/20 14) [address] [phone] Social History Tobacco Use Types [...] this encounter Miscellaneous Notes Telephone Encounter - Alexandria Caldera CMA - 03/08/2014 10:02 AM CDT Called patient to remind about upcoming appointment. Told patient to bring list of medications. Toldpatient to call [phone] if any questions or needs to reschedule. Alexandria Caldera CMA documented in this encounter Plan of Treatment Not on filedocumented as of this encounter Visit Diagnoses Not on filedocumented in this encounter Care Teams Parimutuel Ticket Seller Relationship Specialty Start Date End Date Momo Forbes PCP - General Family Practice 01/02/14 [place] [address] Ingrid Santana, RN Registered Nurse Transplant 02/10/12 10/01/15 documented as of this encounter
--- OUTSIDE RECORDS SUMMARY | 2022-03-30 18:48 | XMS_ITS | Encounter Summary ---
:1950 Author Organization [place] Address [address] [place] [address] Care Team Providers Name Role Phone Ingrid Santana RN Unavailable Momo Forbes Primary Care Provider Reason for Visit Reason Onset Date Comments Anticoagulation 03/29/2014 Encounter Details Date Type Department Care Team Description 03/29/[address] [facility] Mary Sheffield RN Anticoagulation Anticoagulation Clin ic [address] [place], [place] [phone] Social History Tobacco Use Types Packs/Day Years [...] this encounter Miscellaneous Notes Telephone Encounter - Mary Sheffield RN - 03/29/2014 6:[address] PM CDT Call from Dr Leandro Kahn requested wer follow the iNR for \this patient. He has INRs done at [facility] He takes Warfarin 5 mg daily He developed Afib after surgery . He sees cardiologylater this month to determine if the Warfarin can be stopped. He is having a stent removed on Tuesday04/01/14 Spoke with the Oncall Dr Perez no need to stop Warfarin INR yesterday at [facility] was 1[address] Kahn Instructed patient's to give 7.5 mg tonight and then 5 mg Sat , Sun Conservative increase since we do not know how quickly he responds. He is having the procedure on Tuesday. documented in this encounter Plan of Treatment Not on filedocumented as of this encounter Visit Diagnoses Not on filedocumented in this encounter Care Teams Cashier Receptionist Relationship Specialty Start Date End Date Momo Forbes PCP - General Family Practice 01/02/14 [place] [address] Ingrid Santana, RN Registered Nurse Transplant 02/10/12 10/01/15 documented as of this encounter
--- OUTSIDE RECORDS SUMMARY | 2022-03-30 18:48 | XMS_ITS | Encounter Summary ---
:1950 Author Organization [facility] Address [address] [place] [address] Care Team Providers Name Role Phone Ingrid Santana RN Unavailable Momo Forbes Primary Care Provider Reason for Visit Auth/Cert - Closed Specialty Diagnoses / Procedures Referred By Contact Refer red To Contact Surgery Diagnoses S/P Kidney Transplant U[facility] Periop Procedures COMBINED CYSTOSCOPY, REMOVE STENT(S) [address] [place] [address] Phone: Fax: Referral ID Status Reason Start Date Expiration Date Visits Requ ested Visits Authorized [id number] Closed 1 1 Encounter Details Date Type Department Care Team Description 04/01/2014 Hospital Encounter [facility] Migel Merchant, Same Day Surgery [facility] [address] [facility] 500 [facility] [address] [place] [address] [place] [address] (Wo rk) Social History Tobacco Use Types [...] Sign Reading Time Taken Comments Blood Pressure 172/85 04/01/2014 12:00 PM CDT Pulse - - Temperature 36.6 ??C (97.9 ??F) 04/01/2014 12:00 PM CDT Respiratory Rate 20 04/01/2014 12:00 PM CDT Oxygen Saturation 97% 04/01/2014 12:00 PM CDT Inhaled Oxygen Concentration - - Weight 119.6 kg (263 lb 10.7 oz) 04/01/2014 6:47 AM CDT Height 182.9 cm (6') 04/01/2014 6:47 AM CDT Body Mass Index 35.76 04/01/2014 6:47 AM CDT documented in this encounter Discharge Instructions Discharge InstructionsMichelle Scott RN - 04/01/2014 10:15 AM CDT [facility] [place] Same-Day Surgery Adult Discharge Orders & Instructions For 24 hours after surgery 1. Get plenty of rest. A responsible adult must stay with you for at least 24 hours after you leave the hospital. 2. Do not drive or use heavy equipment. If you have weakness or tingling, don't drive or use heavy equipment until this feeling goes away. 3. Do not drink alcohol. 4. Avoid strenuous or risky activities. Ask for help when climbing stairs. 5. You may feel lightheaded. IF so, sit for a few minutes before standing. Have someone help you getup. 6. If you have nausea (feel sick to your stomach): Drink only clear liquids such as apple juice, mervin nehal, broth or 7-Up. Rest may also help. Be sure to drink enough fluids. Move to a regular diet asyou feel able. 7. You may have a slight fever. Call the doctor if your fever is over 100??F (37.7??C) (taken under the tongue) or lasts longer than 24 hours. 8. You may have a dry mouth, a sore throat, muscle aches or trouble sleeping. These should go away after 24 hours. 9. Do not make important or legal decisions. Call your doctor for any of the followin. Signs of infection (fever, growing tenderness at the surgery site, a large amount of drainage or bleeding, severe pain, foul-smelling drainage, redness, swelling). 2. It has been over 8 to 10 hours since surgery and you are still not able to urinate (pass water). 3. Headache for over 24 hours. 4. Numbness, tingling or weakness the day after surgery (if you had spinal anesthesia). To contact a doctor, call or: ??? [phone] and ask for the resident customer service receptionist for (answered 24 hours a day) ??? Emergency Department: [facility]: [phone] (TTY for hearing impaired: [phone]) documented in this encounter Medications at Time of Discharge Medication Sig Dispensed Refills Start Date End Date Calcium Carbonate-Vitamin Take 1 tablet by 0 D (CALCIUM + D PO) mouth daily (dose unknown) HumaLOG VIAL 100 UNITS/ML Inject 20-40 Units 0 SOLN Subcutaneous 3 times daily (before meals) Patient reported his dose 10-12 unit 2-3 times daily before meals LANTUS VIAL 100 UNITS/ML Inject 50 Units 0 SC SOLN Subcutaneous every evening Cholecalciferol (VITAMIN D 5000 1 tab three 0 10/25/2016 PO) times per week clotrimazole (MYCELEX) [address] Place 1 lozenge 90 each 2 02/1205/10/2014 MG LOZGIndications: S/P (10 mg) inside kidney transplant cheek 3 times daily magnesium oxide (MAG-OX) Take 1 tablet (400 60 tablet 5 02/201409/02/2015 400 MG tabletIndications: mg) by mouth 2 Hypophosphatemia times daily mycophenolate Take 4 capsules 240 capsule 11 02/08/201402/10 (CELLCEPT-BRAND NAME) 250 (1,000 mg) by MG capsuleIndications: S/P mouth 2 times kidney transplant daily pantoprazole (PROTONIX) 40 Take 1 tablet (40 30 tablet 1 04/05/2014 MG enteric coated mg) by mouth daily tabletIndications: S/P kidney transplant PROGRAF 0.5 MG Take 1 capsule 60 capsule 6 03/19/20142013 capsuleIndications: (0.5 mg) by mouth -donor kidney 2 times daily transplant recipient (total dose 1.5 mg twice daily) PROGRAF 1 MG Take 1 capsule (1 60 capsule 6 03/19/201404/26 capsuleIndications: mg) by mouth 2 -donor kidney times daily (total transplant recipient dose 1.5 mg twice daily) senna-docusate Take 2 tablets by 15 tablet 0 02/08/2014 (SENOKOT-S;PERICOLACE) mouth daily as 8.6-50 MG per needed for tabletIndications: S/P constipation kidney transplant sertraline (ZOLOFT) 100 MG Take 100 mg by 0 04/20/2016 tablet mouth daily. 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 Pt. Denies CP, SOB, n/v, fevers. He had recent drainage of old hematoma at the site of incision. Past Medical History Diagnosis Date ??? Diabetes [...] Migel Merchant MD; Location: [facility] OR Current Facility-Administered Medications Medication ??? ceFAZolin (ANCEF) IVPB 3 g (pre-mix) ??? ceFAZolin (ANCEF) 1 g vial to attach to IVPB ??? levofloxacin (LEVAQUIN) IVPB 500 mg No Known Allergies ROS: ten point ROS was obtained, pertinent details are recorded in HPI PE: BP 170/86 Temp(Src) 97.6 ??F (36.4 ??C) (Oral) Resp 12 Ht 1.829 m (6') Wt 119.6 kg (263 lb 10.7 oz) BMI 35.75 kg/m2 SpO2 97% A&Ox3 Davie BS Irreg irreg Abd: soft, non-tender, non-distend, incision well healed, no erythema Ext: no edema A/P: 64 yo gentleman s/p kidney tx, here for stent removal. - to OR for cysto and stent removal today Sabrina Cole M.D. - Transplant Fellow - [id number] documented in this encounter Nursing Notes Michelle Scott RN - 04/01/2014 12:20 PM CDT Pt is hemodynamically stable,pain ,nausea free and ambulating with steady gait. Taking po well and voiding with no problem. BP is a little high pre op and post op. He has appointment this afternoon with Dr. Alicea,copies of BP given to him so MD can see and make recommendation. Xi Mcmahon RN - 04/01/2014 8:22 AM CDT Has open area on left stump. Scabbed dried blood noted. Recommended follow up with primary care documented in this encounter Miscellaneous Notes Op Note - Migel Merchant MD - 04/01/2014 9:03 AM CDT Preop Dx: Ureteral stent Postop Dx: Same Procedure: Cystoscopy and ureteral stent removal Surgeon: Dr. Merchant Fellow: Sabrina Cole. There was no qualified resident available to assist with this procedure. Anesthesia: Endotracheal EBL: 0 ml UO: 0 Drains: none Specimen: Urine sample. Complications: None apparent. Findings: ureteral stent Indication: The patient has ureteral stent that was planned for removal. After discussing the risks and benefits of surgery and potential complications, the patient provided informed consent. DETAILS OF PROCEDURE: The patient was brought to the operating room, placed in a supine position. Sequential compression devices were placed on both lower extremities and anesthesia was provided. Patient was prepped from belly button to mid thighs. Time out was performed. Lido Jet was applied to urethra and UA was obtained. Perioperative prophylactic IV antibiotics were given. The bladder was retrograde distended and cystoscope was advanced into the bladder. Stent was visualized and pulled out with cysto graspers. The bladder was drained. All sponge, and instrument counts were accurate. The patient tolerated the procedure well without apparent complications and was trasfered to the PACU in good condition. Faculty was present for critical portions of the procedure. . documented in this encounter Plan of Treatment Not on filedocumented as of this encounter Procedures Procedure Name Priority Date/Time Associated Comments Diagnosis GLUCOSE BY METER Routine 04/01/2014 10:12 Results for this AM CDT procedure are i n the results section. ROUTINE UA WITH Routine 04/01/2014 9:00 AM Result s for this MICROSCOPIC CDT procedure are i n the results section. URINE CULTURE Routine 04/01/2014 9:00 AM Results for this CDT procedure are i n the results section. INR STAT 04/01/2014 8:36 AM Results f or this CDT procedure are i n the results section. EKG 12-LEAD, TRACING Routine 04/01/2014 8:28 AM R esults for this ONLY CDT procedure are i n the results section. CYSTOSCOPY, WITH 04/01/2014 8:14 AM S/P Kidney URETERAL STENT CDT Transplant REMOVAL POTASSIUM STAT 04/01/2014 8:11 AM Results f or this CDT procedure are i n the results section. HEMOGLOBIN STAT 04/01/2014 8:11 AM Results f or this CDT procedure are i n the results section. GLUCOSE BY METER Routine 04/01/2014 8:02 AM Resul ts for this CDT procedure are i n the results section. documented in this encounter Results (ABNORMAL) Glucose by meter (04/01/2014 10:12 AM CDT) athologist Signature Glucose 149 (H) 60 - 99 POINT OF CARE mg/dL TEST, GLUCOSE Specimen Anatomical Collection Method Collection Time Receive d Time (Source) Location / / Volume Laterality 04/01/2014 10:12 04/01/2014 AM CDT 10:15 AM CDT Migel Merchant MD LAB - BEAKER POCT Performing Organization Address City/State/ZIP Code Phon e Number FV POINT OF CARE TEST, GLUCOSE POINT OF CARE TEST, GLUCOSE Urine culture (04/01/2014 9:00 AM CDT) Component Value Ref Test Analysis Performed At [facility] Range Method Time Signature Specimen Unspecified [facility] Urine CAMPUS LABS Special Specimen [facility] Requests received in MICROBIOLOGY preservative Culture Micro No growth [facility] MICROBIOLOGY Micro Report FINAL [facility] Status 04/02/2014 MICROBIOLOGY Specimen Anatomical Collection Method Collection Time Receive d Time (Source) Location / / Volume Laterality 04/01/2014 9:00 AM 4 9:18 CDT AM CDT Migel Merchant MD LAB - MICRO GENERAL ORDERABL ES Performing Organization Address City/State/ZIP Code Phon e Number [address] [address] [facility] LABS [facility] MICROBIOLOGY (ABNORMAL) UA with Microscopic (04/01/2014 9:00 AM CDT) Component Value Ref Test Analysis Performed At Patholo gist Range Method Time Signature Color Urine Yellow [facility] LABS Appearance Urine Clear [facility]ERSITY [facility] LABS Glucose Urine 30 (A) NEG [facility] mg/dL [facility] LABS Bilirubin Urine Negative [facility] Ketones Urine Negative NEG [facility] mg/dL [facility] LABS Specific [place] 1.017 1.003 - [facility] Urine 1.035 [facility] LABS Blood Urine Moderate (A) NEG [facility] pH Urine 6.0 5.0 - [facility] 7.0 pH [facility] [place] [facility] Protein Albumin 10 (A) NEG [facility] Urine mg/dL [facility] LABS Urobilinogen Normal 0.0 - [facility] mg/dL 2.0 [facility] mg/dL [facility]AMP[facility] LABS Nitrite Urine Negative NEG [facility] Leukocyte Negative NEG [facility] Esterase Urine [facility] [place] [facility] Source Unspecified [facility] Urine [facility] LABS WBC Urine 2 0 - 2 [facility] /HPF [facility] LABS RBC Urine 30 (H) 0 - 2 [facility] /HPF [facility] LABS Squamous <1 0 - 1 [facility] Epithelial /HPF /HPF [facility] Urine CAMPUS LABS Specimen Anatomical Collection Method Collection Time Receive d Time (Source) Location / / Volume Laterality 04/01/2014 9:00 AM 4 9:18 CDT AM CDT Migel Merchant MD LAB - URINE ORDERABLES Performing Organization Address City/State/ZIP Code Phon e Number [address] LABS (ABNORMAL) INR (04/01/2014 8:36 AM CDT) P athologist Signature INR 1.64 (H) 0.86 - 1.14 [facility] LABS Specimen Anatomical Collection Method Collection Time Receive d Time (Source) Location / / Volume Laterality Blood specimen 04/01/2014 8:36 AM 014 8:41 (specimen) CDT AM CDT Momo Jimenez MD LAB - BLOOD ORDERABLES Performing Organization Address City/State/ZIP Code Phon e Number [address] LABS EKG 12-lead, tracing only (04/01/2014 8:28 AM CDT) [facility] gist Method Time Signature Interpretation ECG Click View RADIOLOGY Image link RESULTS to view waveform and result Specimen (Source) Anatomical Collection Method Collection Time Re ceived Time Location / / Volume Laterality 04/01/2014 8:28 AM CDT Momo Jimenez MD ECG ORDERABLES Performing Organization Address City/State/ZIP Code Phon e Number RADIOLOGY RESULTS Potassium (04/01/2014 8:11 AM CDT) athologist Signature Potassium 4.1 3.4 - 5.3 [facility] mmol/L CAMPUS LABS Specimen Anatomical Collection Method Collection Time Receive d Time (Source) Location / / Volume Laterality Blood specimen 04/01/2014 8:11 AM 014 8:27 (specimen) CDT AM CDT Momo Jimenez MD LAB - BLOOD ORDERABLES Performing Organization Address City/[facility]/ZIP Code Phon e Number [facility] [address] LABS (ABNORMAL) Hemoglobin (04/01/2014 8:11 AM CDT) athologist Signature Hemoglobin 10.2 (L) 13.3 - [facility] 17.7 g/dL CAMPUS LABS Specimen Anatomical Collection Method Collection Time Receive d Time (Source) Location / / Volume Laterality Blood specimen 04/01/2014 8:11 AM 014 8:27 (specimen) CDT AM CDT Momo Jimenez MD LAB - BLOOD ORDERABLES Performing Organization Address City/[facility]/ZIP Code Phon e Number [facility] [address] LABS (ABNORMAL) Glucose by meter (04/01/2014 8:02 AM CDT) athologist Signature Glucose 158 (H) 60 - 99 POINT OF CARE mg/dL TEST, GLUCOSE Specimen Anatomical Collection Method Collection Time Receive d Time (Source) Location / / Volume Laterality 04/01/2014 8:02 AM 4 8:05 CDT AM CDT Migel Merchant MD LAB - BEAKER POCT Performing Organization Address City/[facility]/ZIP Code Phon e Number [facility]V POINT OF CARE TEST, GLUCOSE POINT OF CARE TEST, GLUCOSE documented in this encounter Visit Diagnoses Not on filedocumented in this encounter Active and Recently Administered Medications Times are shown in CDT. Scheduled Medication Order 03/30/2014 03/31/2014 04/01/2014 levofloxacin (LEVAQUIN) IVPB 500 mg (COMPLETED) 0850 (Given - Provider: Addis Brannon APRN SUBMARINE ELEMENT COORDINATOR - Comment: Asked by Fellow to give after UA done. ) Routine, 500 mg, Intravenous, 30 MIN PRE -OP, Starting on 04/01/14 at 0747, For 1 dose, Administer in or after urine culture Administer at a rate of no greater than 100mL/hr, Indications: Perioperative Pharmacoprophylaxis, Pre-procedure PRN Medication Order 03/30/2014 03/31/2014 04/01/2014 lidocaine 2 % (Uro-Jet) jelly (CANCELED) 0858 (Given - Provider: Celina Cole MD) PRN, Starting Tue04/01/14 at 0858, Intra-procedure documented in this encounter Care Teams Maintenance Services Dispatcher Relationship Specialty Start Date End Date Momo Forbes PCP - General Family Practice 01/02/14 [facility] [address] [place] [address] Ingrid Santana, RN Registered Nurse Transplant 02/10/12 10/01/15 documented as of this encounter
--- OUTSIDE RECORDS SUMMARY | 2022-03-30 18:48 | XMS_ITS | Encounter Summary ---
:1950 Author Organization [facility] Address [address] [place] [address] Care Team Providers Name Role Phone Ingrid Santana RN Unavailable Momo Forbes Primary Care Provider Reason for Visit Auth/Cert - Closed Specialty Diagnoses / Procedures Referred By Contact Refer red To Contact Surgery Diagnoses Status Post Kidney Transplant Uu Periop Procedures COMBINED CYSTOSCOPY, REMOVE STENT(S) [address] [place] [address] Phone: Fax: Referral ID Status Reason Start Date Expiration Date Visits Requ ested Visits Authorized [id number] Closed 1 1 Encounter Details Date Type Department Care Team Description 03/11/2014 Hospital Encounter [facility], Migel Evans, Same Day Surgery [facility] [address] [facility] 500 [facility] [address] [place] [address] [place] [address] (Wo rk) Social History Tobacco Use Types [...] Sign Reading Time Taken Comments Blood Pressure 160/87 03/11/2014 8:19 AM CDT Pulse - - Temperature 36.8 ??C (98.3 ??F) 03/11/2014 8:19 AM CDT Respiratory Rate 16 03/11/2014 8:19 AM CDT Oxygen Saturation 98% 03/11/2014 8:19 AM CDT Inhaled Oxygen Concentration - - Weight 120 kg (264 lb 8.8 oz) 03/11/2014 8:19 AM CDT Height 182.9 cm (6') 03/11/2014 8:19 AM CDT Body Mass Index 35.88 03/11/2014 8:19 AM CDT documented in this encounter Medications at Time [...] mouth daily tabletIndications: S/P kidney transplant PROGRAF 1 MG Take 1 capsule (1 60 capsule 6 03/01/201403/13 capsuleIndications: mg) by mouth 2 -donor kidney times daily (total transplant recipient dose 1.5 mg every morning and 1 mg every evening) senna-docusate Take 2 tablets by 15 tablet 0 02/08/2014 (SENOKOT-S;PERICOLACE) mouth daily as 8.6-50 MG per needed for tabletIndications: S/P constipation kidney transplant sertraline (ZOLOFT) 100 MG Take 100 mg by 0 04/20/2016 tablet mouth daily. 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 Whitlock group Transplant Fellow here to discuss plan of care with pt and his , advised why his case was cancelled and plan of care now. documented in this encounter Plan of Treatment Not on filedocumented as of this encounter Procedures Procedure Name Priority Date/Time Associated Comments Diagnosis US RENAL TRANSPLANT Routine 03/11/2014 4:08 PM Re sults for this WITH DOPPLER CDT procedure are i n the results section. GLUCOSE BY METER Routine 03/11/2014 8:41 AM Resul ts for this CDT procedure are i n the results section. documented in this encounter Results US Renal Transplant (03/11/2014 4:08 PM CDT) Anatomical Region Laterality Modality Abdomen/Pelvis Ultrasound Specimen (Source) Anatomical Location Collection Method / Collectio n Time Received Time / Laterality Volume Impressions 03/13/2014 8:55 AM CDT IMPRESSION: 1. ??Perinephric fluid collection. 2. ??No evidence of hydronephrosis, or h ydroureter. 3. ??Unremarkable Doppler exam of the ri ght lower quadrant transplanted kidney. I have personally reviewed the examinati on and initial interpretation and I agree with the findings. JESSENIA ANDREW MD Narrative 03/13/2014 8:55 AM CDT EXAMINATION: Transplant renal ultrasound with Doppler study ??03/11/2014 4:08 PM COMPARISON: 02/11/2014.. HISTORY: Fluid collection around transpl ant kidney. FINDINGS: There is a right lower quadrant renal tr ansplant, and measures 12 cm.. There is perinephric fluid collection is identified, and measures 16 x 5.9 x 5.1 cm. There is no evidence for h ydronephrosis. Bladder was partially distended, consistent is seen. Doppler waveform examination of the dasha l transplant was performed. The resistive indices within upper, mid, and lower arcuate arteries are 0.81, 0.88, 0.82, respectively. The peak systolic velocities of the renal artery at the renal hilum, mid , and anastomosis are 102, and 108 cm/sec, respectively. The renal vein is patent. And flow velocity measures 16 at the hilum, and 35 at the anastomosis. The waveform of the common iliac artery above the anasto mosis is normal. The common iliac vein is patent above and below the renal anastomosis. And flow velocity measures 10 7 cm/s above anasto mosis and 91 cm/s below the Procedure Note Jessenia Andrew MD - 03/13/2014Fo rmatting of this note might be different from the original. EXAMINATION: Transplant renal ultrasound with Doppler study 03/11/2014 4:08 PM COMPARISON: 02/11/2014.. HISTORY: Fluid collection around transpl ant kidney. FINDINGS: There is a right lower quadrant renal tr ansplant, and measures 12 cm.. There is perinephric fluid collection is identified, and measures 16 x 5.9 x 5.1 cm. There is no evidence for h ydronephrosis. Bladder was partially distended, consistent is seen. Doppler waveform examination of the dasha l transplant was performed. The resistive indices within upper, mid, and lower arcuate arteries are 0.81, 0.88, 0.82, respectively. The peak systolic velocities of the renal artery at the renal hilum, mid , and anastomosis are 102, and 108 cm/sec, respectively. The renal vein is patent. And flow velocity measures 16 at the hilum, and 35 at the anastomosis. The waveform of the common iliac artery above the anasto mosis is normal. The common iliac vein is patent above and below the renal anastomosis. And flow velocity measures 10 7 cm/s above anasto mosis and 91 cm/s below the IMPRESSION IMPRESSION: 1. Perinephric fluid collection. 2. No evidence of hydronephrosis, or hyd roureter. 3. Unremarkable Doppler exam of the righ t lower quadrant transplanted kidney. I have personally reviewed the examinati on and initial interpretation and I agree with the findings. JESSENIA ANDREW MD Luis Hernandes MD IMG US ORDERABLES (ABNORMAL) Glucose by meter (03/11/2014 8:41 AM CDT) P athologist Signature Glucose 193 (H) 60 - 99 POINT OF CARE mg/dL TEST, GLUCOSE Specimen Anatomical Collection Method Collection Time Receive d Time (Source) Location / / Volume Laterality 03/11/2014 8:41 AM 4 8:46 CDT AM CDT Migel Merchant MD [facility] POCT Performing Organization Address City/State/ZIP Code Phon e Number [facility] POINT OF CARE TEST, GLUCOSE POINT OF CARE TEST, GLUCOSE documented in this encounter Visit Diagnoses Not on filedocumented in this encounter Active and Recently Administered Medications Care Teams Administration Assistant Relationship Specialty Start Date End Date Momo Forbes PCP - General Family Practice 01/02/14 [facility] [address] [place] [address] Ingrid Santana, RN Registered Nurse Transplant 02/10/1216 documented as of this encounter
--- OUTSIDE RECORDS SUMMARY | 2022-03-30 18:48 | XMS_ITS | Encounter Summary ---
:1950 Author Organization [facility] Address [address] [place] [address] Care Team Providers Name Role Phone Ingrid Santana RN Unavailable Momo Forbes Primary Care Provider Reason for Visit Auth/Cert - Closed Specialty Diagnoses / Procedures Referred By Contact Refer red To Contact Surgery Diagnoses S/P Kidney Transplant Uu Periop Procedures COMBINED CYSTOSCOPY, REMOVE STENT(S) [address] [place] [address] Phone: Fax: Referral ID Status Reason Start Date Expiration Date Visits Requ ested Visits Authorized [id number] Closed 1 1 Encounter Details Date Type Department Care Team Description 04/01/2014 Surgery [facility] Migel Merchant Romoval of Right Double PeriOp Services J Stent [address] [facility] [address] [place] [address] [address] [address] [place] [address] (Wo rk) Surgery Details Date/Time Status Location OR Service Patient Case Case Traum a Class Class Type Case? 04/01/14 7:30 Posted [facility] OR [facility] OR Transplant Same Day AM 04 Surgery Panel 1 Procedure LRB Anes Op Region Wound Class Commen ts Romoval of Right Right Monitor Anesthesia Urethra II-Clean Romoval of Double J Stent Care Contaminated Right Do uble J Stent Surgeon Surgeon Role Service Panel Migel Merchant MD Primary Transplant 1 Celina Cole MD Assisting General 1 documented in this encounter Social History Tobacco [...] Sign Reading Time Taken Comments Blood Pressure 170/86 04/01/2014 6:47 AM CDT Pulse - - Temperature 36.4 ??C (97.6 ??F) 04/01/2014 6:47 AM CDT Respiratory Rate 12 04/01/2014 6:47 AM CDT Oxygen Saturation 97% 04/01/2014 6:47 AM CDT Inhaled Oxygen Concentration - - Weight 119.6 kg (263 lb 10.7 oz) 04/01/2014 6:47 AM CDT Height 182.9 cm (6') 04/01/2014 6:47 AM CDT Body Mass Index 35.76 04/01/2014 6:47 AM CDT documented in this encounter Discharge Instructions Discharge InstructionsMichelle Scott RN - 04/01/2014 10:15 AM CDT [facility] Same-Day Surgery Adult Discharge Orders & Instructions [...] To contact a doctor, call or: ??? [phone] and ask for the resident registered medical transcriptionist for (answered 24 hours a day) ??? Emergency Department: [facility]: [phone] (TTY for hearing impaired: [phone]) documented in this encounter Medications at Time [...] documented as of this encounter H&P Notes Finger, Migel Evans MD - 04/01/2014 7:55 AM CDT H&P [...] Glucose by meter (04/01/2014 10:12 AM CDT) P athologist Signature Glucose 149 (H) 60 - 99 POINT OF CARE mg/dL TEST, GLUCOSE Specimen Anatomical Collection Method Collection Time Receive d Time (Source) Location / / Volume Laterality 04/01/2014 10:12 04/01/2014 AM CDT 10:15 AM CDT Migel Merchant MD LAB - [facility] POCT Performing Organization Address City/State/ZIP Code Phon e Number [facility] POINT OF CARE TEST, GLUCOSE POINT OF CARE TEST, GLUCOSE Urine culture (04/01/2014 9:00 AM CDT) Component Value Ref Test Analysis Performed At [facility] gist Range Method Time Signature Specimen Unspecified [facility] Description Urine CAMPUS LABS Special Specimen [facility] Requests received in MICROBIOLOGY preservative Culture Micro No growth [facility] MICROBIOLOGY Micro Report FINAL [facility] Status 04/02/2014 MICROBIOLOGY Specimen Anatomical Collection Method Collection Time Receive d Time (Source) Location / / Volume Laterality 04/01/2014 9:00 AM 4 9:18 CDT AM CDT Migel Merchant MD LAB - MICRO GENERAL ORDERABL ES Performing Organization Address City/State/ZIP Code Phon e Number [facility] [address] [place] [address] [facility] CAMP[facility] LABS [facility] MICROBIOLOGY (ABNORMAL) UA with Microscopic (04/01/2014 9:00 AM CDT) Component Value Ref Test Analysis Performed At Patholo gist Range Method Time Signature Color Urine Yellow [facility] C[facility] LABS Appearance Urine Clear [facility] LABS Glucose Urine 30 (A) NEG [facility] mg/dL UNIVERSITY CAMPUS LABS Bilirubin Urine Negative NEG [facility]ERS[facility] CAMP[facility] LABS Ketones Urine Negative NEG [facility] mg/dL UNIVERSITY CAMPUS LABS Specific Oxly 1.017 1.003 - [facility] Urine 1.035 UNIV[facility] CAMP[facility] LABS Blood Urine Moderate (A) NEG [facility] LABS pH Urine 6.0 5.0 - [facility] 7.0 pH UNIVERSITY CAMPUS LABS Protein Albumin 10 (A) NEG [facility] Urine mg/dL UN[facility]ERSITY CAMP[facility] LABS Urobilinogen Normal 0.0 - [facility] mg/dL 2.0 UNIVERSITY mg/dL CAMPUS LABS Nitrite Urine Negative NEG [facility] CAMP[facility] LABS Leukocyte Negative NEG [facility] Esterase Urine UNIVERSITY CAMPUS LABS Source Unspecified [facility] Urine UNIVERSITY CAMPUS LABS WBC Urine 2 0 - 2 [facility] /HPF UNIVERS[facility] CAMP[facility] LABS RBC Urine 30 (H) 0 - [...] Organization Address City/State/ZIP Code Phon e Number [facility] [address] [place] [address] [facility] LABS (ABNORMAL) INR (04/01/2014 8:36 AM CDT) P athologist Signature INR 1.64 (H) 0.86 - 1.14 [facility]AMP[facility] LABS Specimen Anatomical Collection Method Collection Time Receive d Time (Source) Location / / Volume Laterality Blood specimen 04/01/2014 8:36 AM 014 8:41 (specimen) CDT AM CDT Momo Jimenez MD LAB - BLOOD ORDERABLES Performing Organization Address City/[facility]/ZIP Code Phon e Number [facility] [address] LABS EKG 12-lead, tracing only (04/01/2014 8:28 AM CDT) [facility] gist Method Time Signature Interpretation ECG Click View RADIOLOGY Image link RESULTS to view waveform and result Specimen (Source) Anatomical Collection Method Collection Time Re ceived Time Location / / Volume Laterality 04/01/2014 8:28 AM CDT Momo Jimenez MD ECG ORDERABLES Performing Organization Address City/[facility]/ZIP Code Phon e Number RADIOLOGY RESULTS Potassium (04/01/2014 8:11 AM CDT) athologist Signature Potassium 4.1 3.4 - 5.3 [facility] mmol/L CAMPUS LABS Specimen Anatomical Collection Method Collection Time Receive d Time (Source) Location / / Volume Laterality Blood specimen 04/01/2014 8:11 AM 014 8:27 (specimen) CDT AM CDT Momo Jimenez MD LAB - BLOOD ORDERABLES Performing Organization Address City/[facility]/ZIP Code Phon e Number [facility] [address] LABS (ABNORMAL) Hemoglobin (04/01/2014 8:11 AM CDT) athologist Signature Hemoglobin 10.2 (L) 13.3 - [facility] 17.7 g/dL [place] LABS Specimen Anatomical Collection Method Collection Time Receive d Time (Source) Location / / Volume Laterality Blood specimen 04/01/2014 8:11 AM 014 8:27 (specimen) CDT AM CDT Momo Jimenez MD LAB - BLOOD ORDERABLES Performing Organization Address City/[facility]/ZIP Code Phon e Number [facility] [address] LABS (ABNORMAL) Glucose by meter (04/01/2014 8:02 AM CDT) athologist Signature Glucose 158 (H) 60 - 99 POINT OF CARE mg/dL TEST, GLUCOSE Specimen Anatomical Collection Method Collection Time Receive d Time (Source) Location / / Volume Laterality 04/01/2014 8:02 AM 4 8:05 CDT AM CDT Migel LARES - [facility] POCT Performing Organization Address City/State/ZIP Code Phon e Number [facility] POINT OF CARE TEST, GLUCOSE POINT OF CARE TEST, GLUCOSE documented in this encounter Visit Diagnoses Not on filedocumented in this encounter Administered Medications Inactive Administered Medications - up to 3 most recent administrations Medication Order MAR Action Action Date Dose Rate Site lidocaine 2 % (Uro-Jet) jelly Given 04/01/2014 8:58 AM CDT 10 mLs PRN, Starting on Tue04/01/14 at 0858, Intra-procedure documented in this encounter Active and Recently Administered Medications Times are shown in CDT. Scheduled Medication Order 03/30/2014 03/31/2014 04/01/2014 levofloxacin (LEVAQUIN) IVPB 500 mg (COMPLETED) 0850 (Given - Provider: Addis Brannon APRN [employer]RAKEMAN - Comment: Asked by Fellow to give after UA done. ) Routine, 500 mg, Intravenous, 30 MIN PRE -OP, Starting on Tue04/01/14 at 0747, For 1 dose, Administer in or after urine culture Administer at a rate of no greater than 100mL/hr, Indications: Perioperative Pharmacoprophylaxis, Pre-procedure PRN Medication Order 03/30/2014 03/31/2014 04/01/2014 lidocaine 2 % (Uro-Jet) jelly (CANCELED) 0858 (Given - Provider: Celina Cole MD) PRN, Starting Tue04/01/14 at 0858, Intra-procedure documented in this encounter Care Teams Tomb Maker Helper Relationship Specialty Start Date End Date Momo Forbes PCP - General Family Practice 01/02/14 [facility] [address] [place] [id number] Ingrid Santana, RN Registered Nurse Transplant 02/10/12 10/01/15 documented as of this encounter
--- OUTSIDE RECORDS SUMMARY | 2022-03-30 18:48 | XMS_ITS | Encounter Summary ---
:1950 Author Organization [facility] Address [address] [place] [address] Care Team Providers Name Role Phone Inrgid Santana RN Unavailable Momo oFrbes Primary Care Provider Encounter Details Date Type Department Care Team Description 03/11/2014 Anesthesia Event [facility] Aly Esquivel MD PeriOp Services [address] [facility] [address] [address] [place], [place] [address] (Wo rk) Anesthesia Record Procedure Summary Procedure Name Responsible Anesthesia Start Anesthesia Stop Time Anesthesiologist Time COMBINED CYSTOSCOPY, REMOVE STENT(S) (canceled) Events No events on file. No medications on file. Agents No agents on file. Blood No blood administrations on file. Lines, Drains, and Airways No LDAs on file. documented in this encounter Social History Tobacco [...] as of this encounter OR Notes Anesthesia Preprocedure Evaluation - Aly Esquivel MD - 03/11/2014 9:20 AM CDT Anesthesia Evaluation ROS/Med Hx No history of anesthetic complications (-) malignant hyperthermia and tuberculosis Comments: Mr. Guthrie is here for a right ureteral stent removal following a renal transplant procedure done approx 5 weeks ago. 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 He is on insulin, did not take this AM dose; he is also on immunosuppressants - did not take AM dose. Nohistory of asthma, heart problems, GERD, sleep apnea, seizures or stroke. His airway has been feasible and it appears feasible. Dentition is satisfactory. Neuro Findings - negative ROS Pulmonary Findings (-) asthma and apnea HENT Findings - negative HENT ROS Skin Findings - negative skin ROS GI/Hepatic/Renal Findings (-) GERD Endocrine/Metabolic Findings (+) diabetes Diabetes Type: type 2 Control: well controlled Genetic/Syndrome Findings - negative genetics/syndromes ROS Hematology/Oncology Findings - negative hematology/oncology ROS Additional Notes Past Medical History: Diabetes mellitus type II HTN (hypertension) Hyperlipidemia Diabetic peripheral neuropathy 2001 Comment:on insulin x 4 years Retinopathy due to secondary diabetes mellitus Gout Anemia Thrombocytopenia Depression Dialysis patient 08/30/2011 Renal disease Comment:ESKD Past Surgical History: 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 Comment:left due acute osteomyelitis of ankle and foot avf Comment:right forearm LASER SURGERY OF EYE Comment:both eyes CATARACT IOL, RT/LT Comment:both eyes 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 Comment:Procedure: TRANSPLANT KIDNEY RECIPIENT DONOR; Surgeon: Migel Merchant MD; Location: [facility] OR Prescriptions prior to admission: PROGRAF 1 MG capsule, Take 1 capsule (1 mg) by mouth 2 times daily (total dose 1.5 mg every morning and 1 mg every evening), Disp: 60 capsule, Rfl: 6 tacrolimus (PROGRAF BRAND) 0.5 MG capsule, Take 1 capsule (0.5 mg) by mouth every morning (total dose 1.5 mg every morning and 1 mg every evening), Disp: 30 capsule, Rfl: 6 magnesium oxide (MAG-OX) 400 MG tablet, Take 1 tablet (400 mg) by mouth 2 times daily, Disp: 60 tablet, Rfl: 5 clotrimazole (MYCELEX) 10 MG LOZG, Place 1 lozenge (10 mg) inside cheek 3 times daily, Disp: 90 each, Rfl: 2 warfarin (COUMADIN) 5 MG tablet, Take 1 tablet (5 mg) by mouth daily, Disp: 30 tablet, Rfl: 0 valGANciclovir (VALCYTE) 450 MG tablet, Take 1 tablet (450 mg) by mouth daily, Disp: 84 tablet, Rfl:0 sulfamethoxazole-trimethoprim (BACTRIM,SEPTRA) 400-80 MG per tablet, Take 1 tablet by mouth daily (Patient taking differently: Take 1 tablet by mouth daily Hold), Disp: 31 tablet, Rfl: 11 mycophenolate (CELLCEPT-BRAND NAME) 250 MG capsule, Take 4 capsules (1,000 mg) by mouth 2 times daily, Disp: 240 capsule, Rfl: 11 LANTUS VIAL 100 UNITS/ML SC SOLN, Inject 15 Units Subcutaneous every evening , Disp: , Rfl: HumaLOG VIAL 100 UNITS/ML SOLN, Inject 3-13 Units Subcutaneous 3 times daily (before meals) Patient reported his dose 10-12 unit 2-3 times daily before meals, Disp: , Rfl: sertraline (ZOLOFT) 100 MG tablet, Take 100 mg by mouth daily., Disp: , Rfl: Cholecalciferol (VITAMIN D PO), 5000 1 tab three times per week, Disp: , Rfl: senna-docusate (SENOKOT-S;PERICOLACE) 8.6-50 MG per tablet, Take 2 tablets by mouth daily as needed for constipation, Disp: 15 tablet, Rfl: 0 pantoprazole (PROTONIX) 40 MG enteric coated tablet, Take 1 tablet (40 mg) by mouth daily, Disp: 30 tablet, Rfl: 1 Calcium Carbonate-Vitamin D (CALCIUM + D PO), Take 1 tablet by mouth daily (dose unknown), Disp: , Rfl: Current facility-administered medications:levofloxacin (LEVAQUIN) IVPB 500 mg, 500 mg, Intravenous, Q24H, Celina Cole MD; lactated ringers infusion, 1,000 mL, Intravenous, Continuous, Finger, Migel Evans MD No Known Allergies Lab Test 02/25/14 1053 NA 137 POTASSIUM 4.6 CHLORIDE 108 CO2 19* BUN 13 CR 1.48* GLC 217* ENEDINA 9.6 LFTs: Lab Test 02/02/14 1407 PROTTOTAL 7.5 ALBUMIN 4.2 BILITOTAL 0.7 ALKPHOS 88 AST 18 ALT 33 CBC: Lab Test 02/25/14 1053 WBC 4.9 HGB 7.8* PLT 179 Coags: Lab Test 02/25/14 -- 02/06/14 1053 -- 0557 INR 2.39* < > 1.32* PTT -- -- 154* < > = values in this interval not displayed. Blood Bank: ABO A 02/02/2014 RH Pos 02/02/2014 Neg 02/02/2014 EK02/18/2014 - Sinus rhythm; has replaced AFIB Nuclear scan heart: (pre transplant 02/14/2014) Impressions: 1. Normal study. 2. There is no evidence of relative ischemia during adenosine induced hyperemia. 3. Left ventricular size is moderately dilated at rest. Transient ischemic dilation of the left ventricle did not occur. 4. The left ventricular ejection fraction is 46 % and there are no regional wall motion abnormalities. Physical Exam Airway Mallampati: II TM distance: >3 FB Neck ROM: full Dental Comment: satisfactory Cardiovascular Rhythm and rate: regular and normal Pulmonary breath sounds clear to auscultation Other findings: BP 160/87 Temp(Src) 36.8 ??C (98.3 ??F) (Oral) Resp 16 Ht 1.829 m (6') Wt 120 kg (264 lb 8.8 oz) BMI 35.87 kg/m2 SpO2 98% Anesthesia Plan ASA Score: 3 . Plan for MAC - with Intravenous and Propofol induction.Maintenance will be TIVA. Routine analgesia and antiemetics to be used for post-operative care. Anesthetic plan, risks, benefits and alternatives discussed with: patient or in store representative. Possibility of blood products discussed. Procedures and risks of MAC and GA if necessary discussed. He understood procedures and risks and consented. Qs answered. History & Physical Review History and physical reviewed, relevant changes include: reviewed progress notes and details of hismedical problems documented in this encounter Plan of Treatment Not on filedocumented as of this encounter Visit Diagnoses Not on filedocumented in this encounter Care Teams Cover Stitch Machine Operator Relationship Specialty Start Date End Date Momo Forbes PCP - General Family Practice 01/02/14 [facility] [address] [place] [address] Ingrid Santana, RN Registered Nurse Transplant 02/10/12 10/01/15 documented as of this encounter
--- OUTSIDE RECORDS SUMMARY | 2022-03-30 18:48 | XMS_ITS | Encounter Summary ---
:1950 Author Organization [facility] Address [address] [place] [address] Care Team Providers Name Role Phone Ingrid Santana RN Unavailable Momo Forbes Primary Care Provider Encounter Details Date Type Department Care Team Description 02/19/2014 Orders Only [facility], [facility], [facility] jm [place] [address] [phone] [place] [address] 007 [place] [address] (Wo rk) Social History Tobacco [...] Associated Comments Diagnosis TACROLIMUS BY TANDEM Routine 03/19/2014 9:05 AM R esults for this MASS SPECTROMETRY CDT procedure are in the results section. TACROLIMUS BY TANDEM Routine 03/12/2014 9:40 AM R esults for this MASS SPECTROMETRY CDT procedure are in the results section. TACROLIMUS BY TANDEM Routine 03/08/2014 10:15 Res ults for this MASS SPECTROMETRY AM CDT procedure are in the results section. TACROLIMUS BY TANDEM Routine 03/06/2014 5:13 PM R esults for this MASS SPECTROMETRY CDT procedure are in the results section. TACROLIMUS BY TANDEM Routine 03/01/2014 8:10 AM R esults for this MASS SPECTROMETRY CDT procedure are in the results section. TACROLIMUS BY TANDEM Routine 02/27/2014 8:15 AM R esults for this MASS SPECTROMETRY CDT procedure are in the results section. PRA INTERFERING Routine 02/25/2014 10:43 Results for this SUBSTANCE SCREEN AM CDT procedure a re in the results section. HLA LUKASZ CLASS II Routine 02/25/2014 10:43 Results for this SINGLE ANTIGEN AM CDT procedure are in the results section. HLA LUKASZ CLASS I Routine 02/25/2014 10:43 Results for this SINGLE ANTIGEN AM CDT procedure are in the results section. TACROLIMUS BY TANDEM Routine 02/21/2014 8:45 AM R esults for this MASS SPECTROMETRY CDT procedure are in the results section. documented in this encounter Results Tacrolimus level (03/19/2014 9:05 AM CDT) [facility] Method Time Signature Tacrolimus Last 03/18/14 [facility] Dose 2100 [facility] Tacrolimus 13.1 5.0 - [facility] Level 15.0 ug/L [facility] Comment: Tacrolimus Reference Range Kidney [...] Time (Source) Location / / Volume Laterality 03/19/2014 9:05 AM 4 CDT 11:47 AM CDT Bisi Rabago MD LAB - BLOOD ORDERABLES Performing Organization Address City/State/ZIP Code Phon e Number [facility] [address] [place], [place] [id number] [place] [address] [facility] Tacrolimus level (03/12/2014 9:40 AM CDT) [facility] gist Method Time Signature Tacrolimus Not Provided [facility] Last Dose [facility] Tacrolimus 7.3 5.0 - [facility] Level 15.0 ug/L [facility] Comment: Tacrolimus Reference Range Kidney [...] Time (Source) Location / / Volume Laterality 03/12/2014 9:40 AM 4 CDT 11:12 AM CDT Mingo Dangelo MD LAB - BLOOD ORDERABLES Performing Organization Address City/State/ZIP Code Phon e Number [facility] [address] [place], [place] [id number] [place] [address] [facility] Tacrolimus level (03/08/2014 10:15 AM CDT) [facility] gist Method Time Signature Tacrolimus Last 03/07/14 [facility] Dose 2000 [facility] Tacrolimus 6.1 5.0 - [facility] Level 15.0 ug/L [facility] Comment: Tacrolimus Reference Range Kidney [...] Time (Source) Location / / Volume Laterality 03/08/2014 10:15 03/12/2014 AM CDT 11:41 AM CDT Mingo Dangelo MD LAB - BLOOD ORDERABLES Performing Organization Address City/State/ZIP Code Phon e Number [facility] [address] [place], [place] [phone] [place] [address] [facility] Tacrolimus level (03/06/2014 5:13 PM CDT) [facility] gist Method Time Signature Tacrolimus Last 1400 [facility] Dose 03/05/14 [facility] Tacrolimus 11.3 5.0 - [facility] Level 15.0 ug/L [facility] Comment: Tacrolimus Reference Range Kidney [...] Time (Source) Location / / Volume Laterality 03/06/2014 5:13 PM 4 CDT 11:19 AM CDT Migel Merchant MD LAB - BLOOD ORDERABLES Performing Organization Address City/State/ZIP Code Phon e Number [facility] [address] [place], [place] [id number] [place] [address] [facility] Tacrolimus level (03/01/2014 8:10 AM CDT) [facility] gist Method Time Signature Tacrolimus Last 02/28/14 [facility] Dose 1930 [facility] Tacrolimus 10.6 5.0 - [facility] Level 15.0 ug/L [facility] Comment: Tacrolimus Reference Range Kidney [...] Time (Source) Location / / Volume Laterality 03/01/2014 8:10 AM 4 3:20 CDT PM CDT Bisi Rabago MD LAB - BLOOD ORDERABLES Performing Organization Address City/State/[facility] Code Phon e Number [facility] [address] [place], [place] [id number] [place] [address] [facility] Tacrolimus level (02/27/2014 8:15 AM CDT) [facility] gist Method Time Signature Tacrolimus Last 02/26/14 [facility] Dose 2000 [facility] Tacrolimus 11.4 5.0 - [facility] Level 15.0 ug/L [facility] Comment: Tacrolimus Reference Range Kidney [...] Time (Source) Location / / Volume Laterality 02/27/2014 8:15 AM 4 CDT 11:38 AM CDT Kaitlynn Leon MD LAB - BLOOD ORDERABLES Performing Organization Address City/[facility] Code Phon e Number [facility] [address] [place], [place] [phone] [place] [address] LABS HLA Lukasz Class II Single Antigen (02/25/2014 10:43 AM CDT) Component Value Ref Test Analysis Performed At [facility] gist Range Method Time Signature SA2 Test SA HI HISTOTRAC Method SA2 Cell Class II HISTOTRAC SA2 PRA %POS 0 HISTOTRAC SA2 Hi Risk None HISTOTRAC Lukasz SA2 Mod Risk None HISTOTRAC Lukasz SA2 Comments Test performed by aden soto. Serum heat inactivated and treated HISTOTRAC with immunoadsorbent beads to remove interfering Thymoglobul in. No donor specific antibody to 02/02/2014 kidney donor. High-risk, mfi >3,000. Mod-risk, mfi 500-3,000. Predictive PRA derived from local d onor pool. Specimen Anatomical Collection Method Collection Time Receive d Time (Source) Location / / Volume Laterality 02/25/2014 10:43 02/26/2014 AM CDT 12:49 AM CDT Deysi Alicea MD LAB - IMMUNOLOGY ORDERABLES Performing Organization Address City/State/ZIP Code Phon e Number [facility] [place] [address] [facility] 500 [facility] [address] Building, Room 3-580 HISTOTRAC HLA Lukasz Class I Single Antigen (02/25/2014 10:43 AM CDT) Component Value Ref Test Analysis Performed At [facility] gist Range Method Time Signature SA1 Test SA HI HISTOTRAC Method SA1 Cell Class I HISTOTRAC SA1 PRA %POS 0 HISTOTRAC SA1 Hi Risk None HISTOTRAC Lukasz SA1 Mod Risk None HISTOTRAC Lukasz SA1 Comments Test performed by modified p rocdomenico. Serum heat inactivated and treated HISTOTRAC with immunoadsorbent beads to remove interfering Thymoglobul in. No donor specific antibody to 02/02/2014 kidney donor. High-risk, mfi >3,000. Mod-risk, mfi 500-3,000. Predictive PRA derived from local d onor pool. Specimen Anatomical Collection Method Collection Time Receive d Time (Source) Location / / Volume Laterality 02/25/2014 10:43 02/26/2014 AM CDT 12:49 AM CDT Deysi Alicea MD LAB - IMMUNOLOGY ORDERABLES Performing Organization Address City/[facility]/ZIP Code Phon e Number [facility] [place] [address] [facility] 500 [facility] [address] Building, Room 3-580 HISTOTRAC PRA Interfering Substance SCR (02/25/2014 10:43 AM CDT) Component Value Ref Test Analysis Performed At [facility] gist Range Method Time Signature Interfering Luminex HISTOTRAC Substance Test Method Interfering Thymo HISTOTRAC Substance Interfering Neg HISTOTRAC Substance Result Interfering Interfering substance, Thymo globulin, removed from patient's serum by HISTOTRAC Substance immunoadsorbant beads prior to HLA Single Antigens assay. Comment Specimen Anatomical Collection Method Collection Time Receive d Time (Source) Location / / Volume Laterality 02/25/2014 10:43 02/26/2014 AM CDT 12:49 AM CDT Deysi Alicea MD LAB - IMMUNOLOGY ORDERABLES Performing Organization Address City/State/ZIP Code Phon e Number [facility] Immunology/Histocompatabil [place], [place] [address] [facility] [address] [facility] [address] Building, Room [address]-580 HISTOTRAC Tacrolimus level (02/21/2014 8:45 AM CDT) [facility] gist Method Time Signature Tacrolimus Last 02/20/14 [facility] Dose 2000 [facility] Tacrolimus 7.9 5.0 - [facility] Level 15.0 ug/L [facility] Comment: Tacrolimus Reference Range Kidney [...] Time (Source) Location / / Volume Laterality 02/21/2014 8:45 AM 4 2:07 CDT PM CDT Mingo Dangelo MD LAB - BLOOD ORDERABLES Performing Organization Address City/State/ZIP Code Phon e Number [facility] [address] [place] [address] [facility] documented in this encounter Visit Diagnoses Not on filedocumented in this encounter Care Teams Hides Inspector Relationship Specialty Start Date End Date Momo Forbes PCP - General Family Practice 01/02/14 [facility] [address] [place] [address] Ingrid Santana, RN Registered Nurse Transplant 02/10/12 10/01/15 documented as of this encounter
--- OUTSIDE RECORDS SUMMARY | 2022-03-30 18:48 | XMS_ITS | Encounter Summary ---
:1950 Author Organization [facility] Address [address] [place] [address]. 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
--- OUTSIDE RECORDS SUMMARY | 2022-03-30 18:48 | XMS_ITS | Encounter Summary ---
:1950 Author Organization [place] Address [address] [facility] [place] [address] Care Team Providers Name Role Phone Ingrid Santana RN Unavailable Momo Forbes Primary Care Provider Encounter Details Date Type Department Care Team Description 03/15/2014 Hospital Encounter [facility] Susy Cole, Lymphocele Unit 2A [facility] [address] [id number] [place], [place] [address] (Wo rk) Social History Tobacco Use Types [...] Sign Reading Time Taken Comments Blood Pressure 167/89 03/15/2014 10:39 AM CDT Pulse - - Temperature 36.8 ??C (98.2 ??F) 03/15/2014 7:45 AM CDT Respiratory Rate 24 03/15/2014 10:39 AM CDT Oxygen Saturation 97% 03/15/2014 10:39 AM CDT Inhaled Oxygen Concentration - - Weight - - Height - - Body Mass Index - - documented in this encounter Discharge Instructions Discharge InstructionsJeanette Lopez RN - 03/15/2014 9:33 AM CDT Going Home after IR Procedure Doctor: Andrea Can Date of procedure: March 15, 2014 After you go home: ?? Have an adult stay with you for 24 hours. ?? Drink plenty of fluids. ?? You may eat your normal diet, unless your doctor tells you otherwise. ?? For 24 hours: ?? Relax and take it easy. ?? DO NOT make any important or legal decisions. ?? DO NOT drive or operate machines at home or at work. ?? DO NOT do any strenuous exercise or lifting for at least 2 days following your procedure IF YOU WERE GIVEN SEDATION ?? No driving or alcoholic beverages ?? We recommend an adult stay with you for the first 24 hours CALL THE PHYSICIAN IF: ?? You start bleeding from the procedure site. If you do start bleed to bleed from the site, lie down flat and hold pressure on the site. Your physician will tell you if you need to return to the hospital ?? You develop nausea or vomiting ?? You develop hives or a rash or any unexplained itching ADDITIONAL INSTRUCTIONS: Change the dressing daily until healed, wash daily with antibacterial soap. [facility] INTERVENTIONAL RADIOLOGY DEPARTMENT Procedure Physician Andrea Can Date of procedure Telephone numbers: [phone] Tuesday-Tuesday 8:00 am to 4:30 pm [phone] After 4:30 pm Tuesday-Tuesday, Weekends & Holidays. Ask for the Interventional Radiologist ship construction teacher. Someone is available 24 hours/day [facility] toll free number: Tuesday-Tuesday 8:00 am to 4:30 pm I have received and understand my discharge instructions. I have all of my personal items. 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 States understanding and denies questions. Site remains clean and dry. Walked without problem; voided. Will discharge per wheelchair to home. Jeanette Lopez RN - 03/15/2014 9:29 AM CDT Latrell returned to 2A sleepy, VSS, site D&I, no discomfort RT Holly Stewart RN - 03/15/2014 9:20 AM CDT Interventional Radiology Intra-procedural Nursing Note Patient Name: Diego Guthrie Today's Date: March 15, 2014 Start Time: 8:55 AM End of procedure time: 9:14 AM Procedure: Image guided, RLQ, laurel-nephric fluid collection aspiration. Procedure performed by Luis Gibbons PA-C and Dr. Katey Glasgow; MANDY [place] observing Report given to: Fitz Escalera RN 2A Time pt departs: 9:20 AM Other Notes: Patient to IR room 2 via litter from 2A. Patient denies questions or concerns prior to procedure. Positioned and prepped per protocol. Time out done and procedure initiated. Puncture time at 8:59 AM. Medicated with Fentanyl 100 mcg IV and Versed 2 mg IV. Tolerated procedure well, VSS. Removal of 16mL brown/maroon fluid from RLQ. Specimens to lab per primary MD request. Report called and patient transferred. HOLLY STEWART RN, CCRN March 15, 2014 9:20 AM Pager: [phone] Nano Cline NP - 03/15/2014 8:58 AM CDT Discussed order with Dr Merchnat today. He would like drain placement if the fluid appears thin. If itappears to be a hematoma then aspiration only. D/w Drea resident and IR staff doing the case. Thanks [facility] HYDROELECTRIC POWERPLANT SUPERVISOR ([phone]) Jeanette Lopez RN - 03/15/2014 8:14 AM CDT Prepped and consented, INR 1.1 FSBS is 219 documented in this encounter Procedure Notes Drea Glasgow MD - 03/15/2014 9:23 AM CDT Interventional Radiology Brief Post Procedure Note Pre Procedure Diagnosis: perinephric fluid collection Post Procedure Diagnosis: Same Procedure: Aspiration of RLQ fluid collection over the tranplant kidney Proceduralist: Drea Glasgow MD, Andrea Gibbons PA-C Straw Hat Presser: None Time Out: Prior to the start of the procedure and with procedural staff participation, I verbally confirmed the patient???s identity using two indicators, relevant allergies, that the procedure was appropriate and matched the consent or emergent situation, and that the correct equipment/implants were available. Immediately prior to starting the procedure I conducted the Time Out with the procedural staff and re-confirmed the patient???s name, procedure, and site/side. (The Joint Commission universalprotocol was followed.) Yes Sedation: IR Nurse Monitored Care Post Procedure Summary: Prior to the start of the procedure and with procedural staff participation, I verbally confirmed the patient???s identity using two indicators, relevant allergies, that the procedure was appropriate and matched the consent or emergent situation, and that the correct equipment/implants were available. Immediately prior to starting the procedure I conducted the Time Out with the procedural staff and re-confirmed the patient???s name, procedure, and site/side. (The Joint Commission universal protocol was followed.) Yes Sedatives: Fentanyl and Midazolam (Versed) Vital signs, airway and pulse oximetry were monitored and remained stable throughout the procedure and sedation was maintained until the procedure was complete. The patient was monitored by staff untilsedation discharge criteria were met. Patient tolerance: Patient tolerated the procedure well with no immediate complications. Time of sedation in minutes: 20 min from beginning to end of physician one to one monitoring. Findings: Under ultrasound guidance the loculated collection in RLQ over the transplant kidney was seen and 16 cc dark red/brown fluid was aspirated. Findings was transferred to Dr. Merchant over the phone. Estimated Blood Loss: Minimal Fluoroscopy Time: Not applicable SPECIMENS: Aspirated fluid was sent to the lab Complications: None Condition: Stable Plan: Follow up per primary team. Comments: See dictated procedure note for full details Drea Glasgow MD Drea Glasgow MD - 03/15/2014 8:25 AM CDT Interventional Radiology Pre-Procedure Sedation Assessment Time of Assessment: 8:25 AM Expected Level: Moderate Sedation Indication: Sedation is required for the following type of Procedure: Drain Consent: Risks, benefits and alternatives were discussed with Patient PO Intake: Appropriately NPO for procedure ASA Class: Class 2 - MILD SYSTEMIC DISEASE, NO ACUTE PROBLEMS, NO FUNCTIONAL LIMITATIONS. Mallampati: Grade 1: Soft palate, uvula, tonsillar pillars, and posterior pharyngeal wall visible Lungs: Lungs Clear with good breath sounds bilaterally Heart: Normal heart sounds and rate History and physical reviewed and no updates needed. I have reviewed the lab findings, diagnostic data, medications, and the plan for sedation. I have determined this patient to be an appropriate candidate for the planned sedation and procedure and have reassessed the patient IMMEDIATELY PRIOR to sedation and procedure. Drea Glasgow MD documented in this encounter Plan of Treatment Not on filedocumented as of this encounter Procedures Procedure Name Priority Date/Time Associated Comments Diagnosis GLUCOSE BY METER Routine 03/15/2014 9:51 AM Lymphocele Resul ts for this CDT procedure are i n the results section. IR LYMPHOCELE DRAIN Routine 03/15/2014 9:25 AM Lymphocele Re sults for this PLACEMENT CDT procedure are i n the results section. TRIGLYCERIDE FLUID Routine 03/15/2014 9:05 AM Lymphocele Res ults for this CDT procedure are i n the results section. LACTATE DEHYDROGENASE Routine 03/15/2014 9:05 AM Lymphocele Results for this FLUID CDT procedure are i n the results section. GRAM STAIN Routine 03/15/2014 9:05 AM Lymphocele Results f or this CDT procedure are i n the results section. FLUID CULTURE AEROBIC Routine 03/15/2014 9:05 AM Lymphocele Results for this BACTERIAL CDT procedure are i n the results section. CREATININE FLUID Routine 03/15/2014 9:05 AM Lymphocele Resul ts for this CDT procedure are i n the results section. CELL COUNT WITH Routine 03/15/2014 9:05 AM Lymphocele Result s for this DIFFERENTIAL FLUID CDT procedure are in the results section. INR POINT OF CARE Routine 03/15/2014 8:06 AM Lymphocele Resu lts for this CDT procedure are i n the results section. GLUCOSE BY METER Routine 03/15/2014 8:05 AM Lymphocele Resul ts for this CDT procedure are i n the results section. documented in this encounter Results (ABNORMAL) Glucose by meter (03/15/2014 9:51 AM CDT) P athologist Signature Glucose 207 (H) 60 - 99 POINT OF CARE mg/dL TEST, GLUCOSE Specimen Anatomical Collection Method Collection Time Receive d Time (Source) Location / / Volume Laterality 03/15/2014 9:51 AM 4 CDT 10:05 AM CDT Celina Cole MD [facility] POCT Performing Organization Address City/State/ZIP Code Phon e Number [facility] POINT OF CARE TEST, GLUCOSE POINT OF CARE TEST, GLUCOSE IR Lymphocele Drain Placement (03/15/2014 9:25 AM CDT) Anatomical Region Laterality Modality Procedure Radio Fluoroscopy Specimen (Source) Anatomical Location Collection Method / Collectio n Time Received Time / Laterality Volume Impressions 03/15/2014 7:30 PM CDT Impression: Under ultrasound guidance a total of 16 mL dark red/brown fluid was aspirated from right lower lopez drant fluid collection over the transplant kidney and was sent to e lab. Plan: Patient discharged to patient care unit in stable condition. ?? Procedure performed by Dr. Glasgow under my supervision. ??I, Dr. Yossi Cox, was present for the critical portion of the procedure and was immediately available.. I have personally reviewed the examinati on and initial interpretation and I agree with the findings. YOSSI COX MD Narrative 03/15/2014 7:30 PM CDT History: Patient with history of kidney transplant, here for ultrasound (US) guided aspiration of the right lower quadrant fluid collection. Procedure: US guided aspiration of right lower quadrant over the transplant kidney fluid collection. Radiologist: Dr. Yossi Cox Resident: Dr. Drea Glasgow Straw Hat Presser: Andrea Gibbons PA-C. Medications: 1% lidocaine and 8.4% sodiu m bicarbonate 8 ml local anesthesia. Nursing: Throughout the procedure the sulaiman ponce's vital signs and oxygen saturations were continuously monitored by nursing staff under my supervision, and remained stable. Sedation time: 20 minutes. Fluoroscopy time: None. IV contrast: None. Complications: None. Consent: Informed written and verbal con sent were obtained. Procedure/Findings: The patient was plac ed supine on the gurney and a limited right lower quadrant ultrasound revealed a loculated collection in the right lower quadrant o mariel the transplant kidney. The overlying area was prepped and draped in usual sterile fashion, and anesthetized with 8 ml of 1% lidocaine a nd 8.4% sodium bicarbonate. Yueh needle was advanced into the collec tion under ultrasound guidance. The needle was removed and 4 c c of dark red/brown fluid was aspirated. Under ultrasound guidance a 0 .035 floppy Bentson wire was advanced into the cavity and was moved a round to remove some of the loculations. The Bentson wire was then r emoved. Additional 12 mL dark red/brown fluid was aspirated.The site w as cleansed and dressed. The procedure was well tolerated. Procedure Note Yossi Cox MD - 03/15/2014For matting of this note might be different from the original. History: Patient with history of kidney transplant, here for ultrasound (US) guided aspiration of the right lower quadrant fluid collection. Procedure: US guided aspiration of right lower quadrant over the transplant kidney fluid collection. Radiologist: Dr. Yossi Cox Resident: Dr. Drea Glasgow Straw Hat Presser: Andrea Gibbons PA-C. Medications: 1% lidocaine and 8.4% sodiu m bicarbonate 8 ml local anesthesia. Nursing: Throughout the procedure the sulaiman ponce's vital signs and oxygen saturations were continuously monitored by nursing staff under my supervision, and remained stable. Sedation time: 20 minutes. Fluoroscopy time: None. IV contrast: None. Complications: None. Consent: Informed written and verbal con sent were obtained. Procedure/Findings: The patient was plac ed supine on the gurney and a limited right lower quadrant ultrasound revealed a loculated collection in the right lower quadrant o mariel the transplant kidney. The overlying area was prepped and draped in usual sterile fashion, and anesthetized with 8 ml of 1% lidocaine a nd 8.4% sodium bicarbonate. Yueh needle was advanced into the collec tion under ultrasound guidance. The needle was removed and 4 c c of dark red/brown fluid was aspirated. Under ultrasound guidance a 0 .035 floppy Bentson wire was advanced into the cavity and was moved a round to remove some of the loculations. The Bentson wire was then r emoved. Additional 12 mL dark red/brown fluid was aspirated.The site w as cleansed and dressed. The procedure was well tolerated. IMPRESSION Impression: Under ultrasound guidance a total of 16 mL dark red/brown fluid was aspirated from right lower lopez drant fluid collection over the transplant kidney and was sent to e lab. Plan: Patient discharged to patient care unit in stable condition. Procedure performed by Dr. Glasgow under my supervision. I, Dr. Yossi Cox, was present for the critical portion of the procedure and was immediately available.. I have personally reviewed the examinati on and initial interpretation and I agree with the findings. YOSSI COX MD Celina Cole MD IMG IR ORDERABLES Gram stain (03/15/2014 9:05 AM CDT) Component Value Ref Test Analysis Performed At [facility] Range Method Time Signature Specimen Aspirate [facility] LABS Gram Stain Many PMNs seen [facility] No organisms seen MICROBIOLOGY Micro Report FINAL [facility] Status 03/15/2014 MICROBIOLOGY Specimen Anatomical Collection Method Collection Time Receive d Time (Source) Location / / Volume Laterality 03/15/2014 9:05 AM 4 9:59 CDT AM CDT Celina Cole MD LAB - MICRO GENERAL ORDERABL ES Performing Organization Address City/[facility] Phon e Number [address] LABS [facility] MICROBIOLOGY (ABNORMAL) Fluid Culture (03/15/2014 9:05 AM CDT) Component Value Ref Test Analysis Performed At [facility] Range Method Time Signature Specimen Aspirate [facility] Description [facility] LABS Culture Micro Light growth Coagulase negat jo Staphylococcus Susceptibility testing not [facility] routinely done MICROBIOLOGY (A) Micro Report FINAL 03/18/2014 [facility] Status MICROBIOLOGY Specimen Anatomical Collection Method Collection Time Receive d Time (Source) Location / / Volume Laterality Fluid sample SPECIMEN OBTAINED 03/15/2014 9:05 AM 02/20 9:59 (specimen) BY ASPIRATION / CDT AM CDT Unknown Celina Cole MD LAB - MICRO GENERAL ORDERABL ES Performing Organization Address City/[facility] Phon e Number [address] LABS [facility] MICROBIOLOGY Triglyceride Fluid (03/15/2014 9:05 AM CDT) [facility] Method Time Signature Triglyceride Aspirate [facility] Fluid Source [facility] LABS Triglyceride 94 mg/dL [facility] Fluid [facility] LABS Comment: No reference ranges have been establishe d. ??This result should be interpreted in the context of the patient's clinical c ondition and compared to simultaneous measurement in the patient's blood. ??R efer to Lab Guide for specific interpretive guidelines. Specimen Anatomical Collection Method Collection Time Receive d Time (Source) Location / / Volume Laterality Pleural fluid SPECIMEN OBTAINED 03/15/2014 9:05 AM 9:56 specimen BY ASPIRATION / CDT AM CDT (specimen) Unknown Celina Cole MD LAB - BODY FLUIDS ORDERABLES Performing Organization Address City/State/ZIP Code Phon e Number [facility] [address] [place], [place] [id number] [place] [address] LABS Cell count with differential fluid (03/15/2014 9:05 AM CDT) Component Value Ref Test Analysis Performed At [facility] gist Range Method Time Signature Body Fluid Aspirate [facility] Analysis Source [facility] LABS Color Fluid Brown [facility] LABS Appearance Turbid [facility] Fluid [facility] LABS RBC Fluid << Do Not /uL [facility] Report >> [facility] LABS WBC Fluid 29788 /uL [facility] LABS % Neutrophils 97 % [facility] Fluid [facility] LABS % Lymphocytes 2 % [facility] Fluid [facility] LABS % Eosinophils 1 % [facility] Fluid [facility] LABS Specimen Anatomical Collection Method Collection Time Receive d Time (Source) Location / / Volume Laterality SPECIMEN OBTAINED 03/15/2014 9:05 AM 02/20 9:56 BY ASPIRATION / CDT AM CDT Unknown Celina Cole MD LAB - BODY FLUIDS ORDERABLES Performing Organization Address City/State/ZIP Code Phon e Number [facility] [address] LABS Lactate dehydrogenase fluid (03/15/2014 9:05 AM CDT) Component Value Ref Test Analysis Performed At [facility] gist Range Method Time Signature LD Fluid Source Aspirate [facility] LABS Lactate Canceled, Test credited U/L [facility] Dehydrogenase Unsatisfactory specimen - hemolyzed [facility] Fluid Notified Va Guzman RN on UUINR 03/15/14 10:55 [facility] LABS Specimen Anatomical Collection Method Collection Time Receive d Time (Source) Location / / Volume Laterality SPECIMEN OBTAINED 03/15/2014 9:05 AM 02/20 9:56 BY ASPIRATION / CDT AM CDT Unknown Celina Cole MD LAB - BODY FLUIDS ORDERABLES Performing Organization Address City/State/ZIP Code Phon e Number [facility] [address] LABS Creatinine fluid (03/15/2014 9:05 AM CDT) Patholo gist Method Time Signature Creatinine Aspirate [facility] Fluid Source [facility] LABS Creatinine 1.5 mg/dL [facility] Fluid [facility] LABS Comment: No reference ranges have been establishe d. ??This result should be interpreted in the context of the patient's clinical c ondition and compared to simultaneous measurement in the patient's blood. ??R efer to Lab Guide for specific interpretive guidelines. Specimen Anatomical Collection Method Collection Time Receive d Time (Source) Location / / Volume Laterality SPECIMEN OBTAINED 03/15/2014 9:05 AM /12/2013 9:56 BY ASPIRATION / CDT AM CDT Unknown Celina Cole MD LAB - BODY FLUIDS ORDERABLES Performing Organization Address City/State/ZIP Code Phon e Number [facility] [address] [place] [address] [facility] LABS INR point of care (03/15/2014 8:06 AM CDT) P athologist Signature INR Point of 1.1 0.86 - POINT OF CARE Care 1.14 TEST, HANDHELD METER Specimen Anatomical Collection Method Collection Time Receive d Time (Source) Location / / Volume Laterality 03/15/2014 8:06 AM 4 8:30 CDT AM CDT Celina Cole MD LAB - BLOOD ORDERABLES Performing Organization Address City/[facility]/ZIP Code Phon e Number [facility] POINT OF CARE TEST, HANDHELD METER POINT OF CARE TEST, HANDHELD METER (ABNORMAL) Glucose by meter (03/15/2014 8:05 AM CDT) P athologist Signature Glucose 219 (H) 60 - 99 POINT OF CARE mg/dL TEST, GLUCOSE Specimen Anatomical Collection Method Collection Time Receive d Time (Source) Location / / Volume Laterality 03/15/2014 8:05 AM 4 8:25 CDT AM CDT Celina Cole MD LAB - BEAKER POCT Performing Organization Address City/[facility]/ZIP Code Phon e Number [facility] POINT OF CARE TEST, GLUCOSE POINT OF CARE TEST, GLUCOSE documented in this encounter Visit Diagnoses Diagnosis Lymphocele Other noninfectious disorders of lymphat ic channels documented in this encounter Administered Medications Inactive Administered Medications - up to 3 most recent administrations Medication Order MAR Action Action Date Dose Rate Site 0.9 % sodium chloride IV New Bag 03/15/2014 8:09 AM CDT 500 mLs 75 mL/hr solution at 75 mL/hr, Intravenous, CONTINUOUS, Until Discontinued. Start today., IR Pre-procedure, Starting on Tue03/15/14 at 0745, Until Tue03/15/14 at 0926 ceFAZolin (ANCEF) IVPB 3 g (pre-mix) Given 03/15/2014 8:10 AM CDT 3 g 200 mL/hr Routine, 3 g, Intravenous, PRE-OP/PRE-PROCEDURE, Starting on Tue03/15/14 at 0734, For 1 dose, Give dose within 1 hour PRIOR to procedure., Indications: Perioperative Pharmacoprophylaxis, IR Pre-procedure fentaNYL (SUBLIMAZE) injection 25-50 mcg Given 03/15/2014 9:11 AM CDT 100 mcg 25-50 mcg, Intravenous, EVERY 5 MIN PRN, severe pain, If inadequate response may repeat 25 mcg IV slowly Q 5 min PRN severe pain, Administer over 2 Minutes, Starting on Tue03/15/14 at 0825, Doses can be exceeded under direct oversight of patient by physician., IR Intra-procedure lidocaine BUFFERED 1 % Given by Other 03/15/2014 9:19 AM CDT 8 mLs solution 1-30 mL Clinician 1-30 mL, Intradermal, ONCE PRN, for site local anesthesic, Starting on Tue03/15/14 at 0825, For 1 dose, Dose to be divided into smaller volumes appropriate for the procedure. Provider to administer intradermally, IR Intra-procedure midazolam (VERSED) injection 0.5-1 mg Given 03/15/2014 9:11 AM CDT 2 mg 0.5-1 mg, Intravenous, Administer over 1 Minutes, EVERY 4 MIN PRN, sedation, If inadequate response may repeat 0.5 mg IV slowly Q 4 minutes PRN sedation until desired response., Starting on Tue03/15/14 at 0825, Doses can be exceeded under direct oversight of patient by physician., IR Intra-procedure documented in this encounter Active and Recently Administered Medications Times are shown in CDT. Scheduled Medication Order 03/13/2014 03/14/2014 03/15/2014 ceFAZolin (ANCEF) IVPB 3 g (pre-mix) (COMPLETED) 08 (Given - Provider: Jeanette Lopez, BOGDAN) 3 g, Intravenous, PRE-OP/PRE-PROCEDURE, Starting Tue03/15/14 at 0734, For 1 dose, Give dose within 1 hour PRIOR to procedure., Indications: Surgical Prophylaxis, IR Pre-procedure Continuous Medication Order 03/13/2014 03/14/2014 03/15/2014 0.9 % sodium chloride IV solution (CANCELED) 808 (New Bag - Provider: Jeanette Lopez, BOGDAN) at 75 mL/hr, Intravenous, CONTINUOUS, Un til Discontinued. Start today., IR Pre- procedure, Starting Tue03/15/14 at 0745, Until Tue03/15/14 at 0926 PRN Medication Order 03/13/2014 03/14/2014 03/15/2014 fentaNYL (SUBLIMAZE) injection 25-50 mcg (CANCELED) 910 (Given - Provider: Holly Stewart RN - Comment: total intra procedure dose given) 25-50 mcg, Intravenous, for 2 Minutes, E VERY 5 MIN PRN, Starting Tue03/15/14 at 0825, severe pain, If inadequate response may repeat 25 mcg IV slowly Q 5 min PRN severe pain, Doses can be exceeded under direct oversight of patient by physician., IR Intra-procedure lidocaine BUFFERED 1 % solution 1-30 mL (COMPLETED) 918 (Given by Other Clinician - Provider: Holly Stewart RN - Comment: total intra procedure dose injected by Dr. Katey Glasgow) 1-30 mL, Intradermal, ONCE PRN, for site local anesthesic, Starting Tue03/15/14 at 0825, For 1 dose, Dose to be divided into smaller volumes appropriate for the procedure. Provider to administer intradermally, IR Intra-procedure midazolam (VERSED) injection 0.5-1 mg (CANCELED) 910 (Given - Provider: Holly Stewart RN - Comment: total intra procedure dose given) 0.5-1 mg, Intravenous, for 1 Minutes, EV ROSA MARIA 4 MIN PRN, Starting Tue03/15/14 at 0825, sedation, If inadequate response may repeat 0.5 mg IV slowly Q 4 minutes PRN sedation until desired response., Doses can be exceeded under direct oversight o f patient by physician., IR Intra-procedure documented in this encounter Care Teams Cyber Threat Analyst Relationship Specialty Start Date End Date Momo Forbes PCP - General Family Practice 01/02/14 [facility] [address] [place] [address] Ingrid Santana, RN Registered Nurse Transplant 02/10/12 10/01/15 documented as of this encounter
--- OUTSIDE RECORDS SUMMARY | 2022-03-30 18:48 | XMS_ITS | Encounter Summary ---
:1950 Author Organization [place] Address [facility] [place] [address] Care Team Providers Name Role Phone Ingrid Santana RN Unavailable Momo Forbes Primary Care Provider Encounter Details Date Type Department Care Team Description 02/18/2014 Orders Only Nephrology Shiva Kahn, -donor kidney transp lant recipient (Primary Dx); 2nd Floor, Clinic 2A RN High risk medications (not anticoagulant s) long-term use; Tommy Wilburn [facility] terminologist (current) use of anticoagulant s [place] [address] [place] [phone] Social History Tobacco Use Types Packs/Day Years [...] nt - Primary Kidney replaced by transplant High risk medications (not anticoagulant s) long-term use Encounter for long-term (current) use of other medications prison (current) use of anticoagulant s Long-term (current) use of anticoagulant s documented in this encounter Care Teams Torch Brazer Relationship Specialty Start Date End Date Momo Forbes PCP - General Family Practice 01/02/14 [facility] [address] [place] [address] Ingrid Santana, RN Registered Nurse Transplant 02/10/12 10/01/15 documented as of this encounter
--- OUTSIDE RECORDS SUMMARY | 2022-03-30 18:48 | XMS_ITS | Encounter Summary ---
:1950 Author Organization [place] Address [address] [place] [address]. [place] [address] Care Team Providers Name Role Phone Ingrid Santana RN Unavailable Momo Fobres Primary Care Provider Encounter Details Date Type Department Care Team Description 03/01/2014 Orders Only Nephrology Shiva Kahn RN -donor kidney 2nd Floor, Clinic 2A [facility] transplant recipient Tommy Josephensteen [address] [place] [address] [place] [phone] Social History Tobacco Use Types Packs/Day Years [...] transplant documented in this encounter Care Teams Printer Apprentice Relationship Specialty Start Date End Date Momo Forbes PCP - General Family Practice 01/02/14 [facility] [address] [place] [address] Ingrid Santana RN Registered Nurse Transplant 02/10/12 10/01/15 documented as of this encounter
--- OUTSIDE RECORDS SUMMARY | 2022-03-30 18:48 | XMS_ITS | Encounter Summary ---
:1950 Author Organization [place] Address [address] [place] [address]. [place] [address] Care Team Providers Name Role Phone Ingrid Santana RN Unavailable Momo Forbes Primary Care Provider Encounter Details Date Type Department Care Team Description 03/19/2014 Orders Only Nephrology Shiva Kahn RN -donor kidney 2nd Floor, Clinic 2A [facility] transplant recipient Tommy Josephensteen [address] [place] [address] [place] [phone] Social History Tobacco Use Types Packs/Day Years [...] transplant documented in this encounter Care Teams Licensed Architect Relationship Specialty Start Date End Date Momo Forbes PCP - General Family Practice 01/02/14 [facility] [address] [place] [address] Ingrid Santana RN Registered Nurse Transplant 02/10/12 10/01/15 documented as of this encounter
--- OUTSIDE RECORDS SUMMARY | 2022-03-30 18:48 | XMS_ITS | Encounter Summary ---
:1950 Author Organization [place] Address [address] [place] [address]. 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
--- OUTSIDE RECORDS SUMMARY | 2022-03-30 18:48 | XMS_ITS | Encounter Summary ---
:1950 Author Organization [place] Address [address] [place] [address]. [place] [address] Care Team Providers Name Role Phone Ingrid Santana RN Unavailable Momo Forbes Primary Care Provider Encounter Details Date Type Department Care Team Description 03/14/2014 Orders Only Nephrology Shiva Kahn RN -donor kidney 2nd Floor, Clinic 2A [facility] transplant recipient Tommy Josephensteen [address] [place] [address] [place] [address] [phone] Social History Tobacco Use Types Packs/Day Years [...] transplant documented in this encounter Care Teams Psychiatric Assistant Relationship Specialty Start Date End Date Momo Forbes PCP - General Family Practice 01/02/14 [facility] [address] [place] [address] Ingrid Santana RN Registered Nurse Transplant 02/10/12 10/01/15 documented as of this encounter
--- OUTSIDE RECORDS SUMMARY | 2022-03-30 18:48 | XMS_ITS | Encounter Summary ---
:1950 Author Organization [place] Address [address] [place] [address]. [place] [address] Care Team Providers Name Role Phone Ingrid Santana RN Unavailable Momo Forbes Primary Care Provider Encounter Details Date Type Department Care Team Description 03/13/2014 Orders Only Nephrology Shiva Kahn, Atrial fibrillation (H); 2nd Floor, Clinic 2A RN -donor kidney transplant stefani Wilburn [address] [phone] [phone] Social History Tobacco Use Types Packs/Day Years [...] encounter Visit Diagnoses Diagnosis Atrial fibrillation (H) Atrial fibrillation -donor kidney transplant recipie nt Kidney replaced by transplant documented in this encounter Care Teams Community Development Coordinator Relationship Specialty Start Date End Date Momo Forbes PCP - General Family Practice 01/02/14 [facility] [address] [place] [address] Ingrid Santana, RN Registered Nurse Transplant 02/10/12 10/01/15 documented as of this encounter
--- OUTSIDE RECORDS SUMMARY | 2022-03-30 18:48 | XMS_ITS | Encounter Summary ---
:1950 Author Organization [place] Address [facility] [address] Care Team Providers Name Role Phone Ingrid Santana RN Unavailable Momo Forbes Primary Care Provider Reason for Visit Reason Onset Date Comments Previsit 02/20/2014 Encounter Details Date Type Department Care Team Description 02/20/2014 Telephone Transplant Surgery C nanda Merchant, Migel Evans MD Previsit 2nd Floor, Clinic 2A [address] [address] [facility] [place] [phone] Social History Tobacco Use Types Packs/Day Years [...] this encounter Miscellaneous Notes Telephone Encounter - Jaja Deleon LPN - 02/20/2014 1:51 PM CDT Patient contacted and reminded of upcoming appointment. Patient confirmed they will be attending. Patient instructed to bring updated medications list to appointment. documented in this encounter Plan of Treatment Not on filedocumented as of this encounter Visit Diagnoses Not on filedocumented in this encounter Care Teams Saw Man Relationship Specialty Start Date End Date oMmo Forbes PCP - General Family Practice 01/02/14 [place] [id number] Ingrid Santana, RN Registered Nurse Transplant 02/10/12 10/01/15 documented as of this encounter
--- OUTSIDE RECORDS SUMMARY | 2022-03-30 18:48 | XMS_ITS | Encounter Summary ---
:1950 Author Organization [place] Address [address] [place] [address]. [place] [address] Care Team Providers Name Role Phone Ingrid Santana RN Unavailable Momo Forbes Primary Care Provider Encounter Details Date Type Department Care Team Description 02/18/2014 Results Only INTERFACED REPORT Unknown, Doctor, MD Social History Tobacco Use Types Packs/Day Years [...] Name Priority Date/Time Associated Diagnosis Comme nts EKG 12-LEAD, Routine 02/18/2014 9:53 AM Results f or this TRACING ONLY CDT procedure are i n the results section. documented in this encounter Results EKG 12-lead, tracing only (02/18/2014 9:53 AM CDT) [facility] gist Method Time Signature Interpretation ECG Click View RADIOLOGY Image link RESULTS to view waveform and result Specimen (Source) Anatomical Collection Method Collection Time Re ceived Time Location / / Volume Laterality 02/18/2014 9:53 AM CDT Doctor Unknown MD ECG ORDERABLES Performing Organization Address City/State/ZIP Code Phon e Number RADIOLOGY RESULTS documented in this encounter Visit Diagnoses Not on filedocumented in this encounter Care Teams Computer Programmer Relationship Specialty Start Date End Date Momo Forbes PCP - General Family Practice 01/02/14 [facility] [address] [place] [address] Ingrid Santana, RN Registered Nurse Transplant 02/10/12 10/01/15 documented as of this encounter
--- OUTSIDE RECORDS SUMMARY | 2022-03-30 18:48 | XMS_ITS | Encounter Summary ---
:1950 Author Organization [place] Address [facility] [place] [address] Care Team Providers Name Role Phone Ingrid Santana RN Unavailable Momo Forbes Primary Care Provider Reason for Visit Reason Onset Date Comments [facility] Encounter Details Date Type Department Care Team Description 03/04/2014 Refill The Transplant Kaitlynn Moreno MD Refill Request 2nd Floor, Clinic 2A [facility] [address] [place] [address] [phone] [place], [place] [phone] (Wo rk) [address] [phone] Social History Tobacco Use Types Packs/Day Years [...] this encounter Miscellaneous Notes Telephone Encounter - Manuel Aubrey Galarza - 03/04/2014 8:47 AM CDT Drug Name: Jantoven Last Fill Date: 02/08/14 Quantity: 60 [facility] [phone] documented in this encounter Plan of Treatment Not on filedocumented as of this encounter Visit Diagnoses Diagnosis Atrial fibrillation (H) Atrial fibrillation documented in this encounter Care Teams Computer Technology Instructor Relationship Specialty Start Date End Date Momo Forbes PCP - General Family Practice 01/02/14 [place] [id number] Ingrid Santana, RN Registered Nurse Transplant 02/10/12 10/01/15 documented as of this encounter
--- OUTSIDE RECORDS SUMMARY | 2022-03-30 18:48 | XMS_ITS | Encounter Summary ---
:1950 Author Organization [place] Address [facility] [place] [address] Care Team Providers Name Role Phone Ingrid Santana RN Unavailable Momo Forbes Primary Care Provider Reason for Visit Reason Onset Date Comments Transplant 03/08/2014 Elevated tacrolimus level Encounter Details Date Type Department Care Team Description 03/08/2014 Telephone Nephrology Jeff Giordano (Elevated 2nd Floor, Clinic 2A Almita Palomino RN tacrolimus level) [facility] [address] [address] Social History Tobacco Use Types [...] Telephone Encounter - Josseline Nice LPN - 03/08/2014 10:41 AM CDT Called pt. Asked him about timing of last dose before lab draw 03/06/13. His last Prograf had been at2pm that day and blood drawn at 5:15pm, 3 hour trough. No changes made. He got labs this morning, will be here seeing Dr. Merchant on Tuesday. Telephone Encounter - Almita Giordano RN - 03/08/2014 10:32 AM CDT Please call patient and verify trough times for tacrolimus level of 11.3 on 03/06/2014. If this was a12 hour trough, please decrease the dosage of Prograf to 1mg every 12 hours. Please make necessary changes to meds list in EPIC and ask patient to repeat drug level in two weeks. Please send a lab order if necessary. If not a 12 hour trough, ask patient to please repeat the level. Leonor Giordano R.N. - [phone] documented in this encounter Plan of Treatment Not on filedocumented as of this encounter Visit Diagnoses Not on filedocumented in this encounter Care Teams Surfboard Designer Relationship Specialty Start Date End Date Momo Forbes PCP - General Family Practice 01/02/14 [place] [address] Ingrid Santana, RN Registered Nurse Transplant 02/10/12 10/01/15 documented as of this encounter
--- OUTSIDE RECORDS SUMMARY | 2022-03-30 18:48 | XMS_ITS | Encounter Summary ---
:1950 Author Organization [place] Address [address] [facility] [place] [address] Care Team Providers Name Role Phone Ingrid Santana RN Unavailable Momo Forbes Primary Care Provider Reason for Referral Specialty Diagnoses / Procedures Referred By Contact Refer red To Contact Migel Merchant MD [address] [address] Referral ID Status Reason Start Date Expiration Date Visits Requ ested Visits Authorized Scheduling Instructions ANTICOAGULATION CLINIC COLLABORATIVE PRA CTICE AGREEMENT The following represents a collaborative practice agreement among the physicians of the Clinic and staff of the Anticoagulat ion Clinic Service ([facility]) Physicians shall: 1. Refer patients requiring anticoagulat ion to a specialty service staffed by personnel of Pharmacy Services and super vised by Clinic physicians. 2. Respond to questions and referrals fr pharmacy staff regarding delinquent or difficult patients. 3. Inform the [facility] staff when a new patie nt is to be started on the service in a timely manner including the indication f or warfarin therapy and any variation from the protocol. Anticoagulation service staff shall: 1. Conduct an education program for each patient. 2. Assess each patient for their ability to comply with therapy and their understanding of anticoagulation therapy . 3. Order all doses and dose changes base d on a mutually agreed protocol. 4. Schedule patients for follow-up labor atory and consultation visits. 5. Assess each patient's INR and provide appropriate direction. 6. At each visit, assess each patient fo r his or her risk of adverse or sub-therapeutic effects including at [facility] the following: Has the patient experienced any bleeding since the last INR Has the patient had any bacterial or vir al infections since the last INR Have any medications been added or costa ed or stopped since the last INR Has the patient had any symptoms of thro mboemboli since the last INR Has the patient had any dietary changes or changes in eating habits since the last INR Has the patient missed any warfarin/coum lalit doses since the last INR Has the patient had a fever since the la st INR Has the patient had unusual diarrhea sin ce the last INR 7. Prepare new prescriptions and authori ze refills for anticoagulants. 8. Serve as a resource to and answer que stions from patients and staff. 9. Identify delinquent patients and init iate appropriate steps to ensure adequate follow-up and monitoring. 10. Refer delinquent patients and other problem situations to a physician for direction. 11. Initiate vitamin K therapy when josh cated. Encounter Details Date Type Department Care Team Description 03/29/2014 Orders Only [facility] Migel Merchant fibrillation (H) (Primary Dx); Anticoagulation Clin ic MD Nathan performance improvement coordinator (current) use of anticoagulant s [address] [place] [address] [phone] [place] [address] Social History Tobacco Use Types Packs/Day Years [...] Type Priority Associated Diagnoses Order S chedule INR CLINIC REFERRAL Referral Routine Atrial fibri llation (H) Ordered: 03/29/2014 Media Relations Associate (Current) Use Of Anticoagulants documented as of this encounter Visit Diagnoses Diagnosis Atrial fibrillation (H) - Primary Atrial fibrillation care home (current) use of anticoagulant s Long-term (current) use of anticoagulant s documented in this encounter Care Teams Bi Data Modeler Relationship Specialty Start Date End Date Momo Forbes PCP - General Family Practice 01/02/14 [facility] [address] [place] [address] Ingrid Santana, RN Registered Nurse Transplant 02/10/12 10/01/15 documented as of this encounter
--- OUTSIDE RECORDS SUMMARY | 2022-03-30 18:48 | XMS_ITS | Encounter Summary ---
:1950 Author Organization [place] Address [facility] [place] [address] Care Team Providers Name Role Phone Ingrid Santana RN Unavailable Momo Forbes Primary Care Provider Reason for Visit Reason Comments Surgical Followup kidney tx 02/02/14 Encounter Details Date Type Department Care Team Description 02/25/2014 Office Visit Transplant Surgery Migel Merchant Hypophosp hatemia (Primary Dx); Clinic MD Nathan Kidney replaced by transplant; 2nd Floor, Clinic 2[address] [place] -donor kidney transp lant recipient; [address] 1 95 High risk medications (not anticoagulant s) long-term use; Building alf (current) use of anticoagulant s; [address] [place], [place]; [place] [id number] Orthostatic hypotension [facility] [address] [place], [place] (Work) [phone] Social History Tobacco Use Types Packs/Day [...] Sign Reading Time Taken Comments Blood Pressure 84/47 02/25/2014 1:23 PM left arm lilli gaona CDT Pulse 80 02/25/2014 1:21 PM CDT Temperature - - Respiratory Rate 16 02/25/2014 1:21 PM CDT Oxygen Saturation 99% 02/25/2014 1:21 PM CDT Inhaled Oxygen - - Concentration Weight 121.3 kg (267 lb 6.4 02/25/2014 1:21 PM oz) CDT Height 182.9 cm (6' 0.01) 02/25/2014 1:21 PM CDT Body Mass Index 36.26 02/25/2014 1:21 PM CDT documented in this encounter Progress Notes Migel Merchant MD - 02/25/2014 1:40 PM CDT Images from the original note were not included. Date of Visit: 02/25/2014 Transplants: 02/02/2014 (Kidney); Postoperative day: 23 History: Patient returns for re-examination after visit last week. Plan was for wound evaluation today, possible d/c drain, possible d/c anderson, possible resumption of bactrim. Today he feels slightly light headed. BS 279. Reports decreased appetite and some difficulty with taking pills. Drain is putting out 10-15 cc/day. Cr 1.48 which is lowest it's been postop. Hgb 7.8 (Stable). INR 2.4. K4.6 Immunsupresent Medications Immunosuppressive Agents Disp Start End PROGRAF 1 MG capsule 60 capsule 02/18/2014 Sig - Route: Take 1 capsule (1 mg) by mouth 2 times daily - Take with 0.5 mg capsules for total dose 1.5 mg twice daily - Oral Class: E-Prescribe tacrolimus (PROGRAF BRAND) 0.5 MG capsule 60 capsule 02/18/2014 Sig - Route: Take 1 capsule (0.5 mg) by mouth 2 times daily - Take with 1 mg capsules for total dose 1.5 mg twice daily - Oral Class: E-Prescribe Notes to Pharmacy: Dose change. mycophenolate (CELLCEPT-BRAND NAME) 250 MG capsule 240 capsule 02/08/2014 Sig - Route: Take 4 capsules (1,000 mg) by mouth 2 times daily - Oral Class: E-Prescribe Possible Immunosuppression-related side effects: [] headache [] vivid dreams [] irritability [] fine tremor [] nausea [] diarrhea [] neuropathy [] edema [] renal calcineurin toxicity [] hyperkalemia [] post-transplant diabetes [x] decreased appetite [] increased appetite [] other: Prescription Medications as of 02/25/2014 Cholecalciferol (VITAMIN D PO) 5000 1 tab three times a day PROGRAF 1 MG capsule Take 1 capsule (1 mg) by mouth 2 times daily - Take with 0.5 mg capsules for total dose 1.5 mg twice daily tacrolimus (PROGRAF BRAND) 0.5 MG capsule Take 1 capsule (0.5 mg) by mouth 2 times daily - Take with 1 mg capsules for total dose 1.5 mg twice daily clotrimazole (MYCELEX) [address] 1 lozenge (10 mg) inside cheek 3 times daily warfarin (COUMADIN) 5 MG tablet Take 1 tablet (5 mg) by mouth daily valGANciclovir (VALCYTE) 450 MG tablet Take 1 tablet (450 mg) by mouth daily mycophenolate (CELLCEPT-BRAND NAME) 250 MG capsule Take 4 capsules (1,000 mg) by mouth 2 times daily pantoprazole (PROTONIX) 40 MG enteric coated tablet Take 1 tablet (40 mg) by mouth daily Calcium Carbonate-Vitamin D (CALCIUM + D PO) Take 1 tablet by mouth daily (dose unknown) LANTUS VIAL 100 UNITS/ML SC SOLN Inject 15 Units Subcutaneous every evening HumaLOG VIAL 100 UNITS/ML SOLN Inject 3-13 Units Subcutaneous 3 times daily (before meals) Patient reported his dose 10-12 unit 2-3 times daily before meals sertraline (ZOLOFT) 100 MG tablet Take 100 mg by mouth daily. ondansetron (ZOFRAN) 4 MG tablet Take 2 tablets (8 mg) by mouth every 8 hours as needed for nausea sulfamethoxazole-trimethoprim (BACTRIM,SEPTRA) 400-80 MG per tablet Take 1 tablet by mouth daily senna-docusate (SENOKOT-S;PERICOLACE) 8.6-50 MG per tablet Take 2 tablets by mouth daily as needed for constipation zolpidem (AMBIEN) 10 MG tablet Take 10 mg by mouth nightly as needed Per patient on hold Exam: BP 84/47 Pulse 80 Resp 16 Ht 1.829 m (6' 0.01) Wt 121.292 kg (267 lb 6.4 oz) BMI 36.26 kg/m2 SpO2 99% Pulse: [80] 80 Resp: [16] 16 BP: (84-108)/(45-47) 84/47 mmHg SpO2: [99 %] 99 % Somewhat lethargic. Otherwise well Abd mod obesity. Anderson in place. Drain with small amt of serosang fluid. Some bulging in mid wound(lemon sized) c/w known hematoma. Procedure: Lu[place] and drain removed. Steri strips applied. Hematology: Recent Labs Lab Test 02/25/14 1053 02/18/14 0856 02/14/14 0751 HGB 7.8* 7.8* 7.8* PLT 179 140* 122* WBC 4.9 6.3 6.9 Coags: Recent Labs Lab Test 02/25/14 1053 02/18/14 0856 02/14/14 0751 INR 2.39* 2.13* 2.29* Lipid Profile: Cholesterol Date Value Range Status 02/06/2014 126 <200 mg/dL Final LDL Cholesterol is the primary guide to therapy. The NCEP recommends further evaluation of: patients with cholesterol greater than 200 mg/dL if additional risk factors are present, cholesterol greater than 240 mg/dL, triglycerides greater than 150 mg/dL, or HDL less than 40 mg/dL. Triglycerides Date Value Range Status 02/06/2014 100 0 - 150 mg/dL Final HDL Cholesterol Date Value Range Status 02/06/2014 35* >40 mg/dL Final LDL Cholesterol Calculated Date Value Range Status 02/06/2014 71 0 - 129 mg/dL Final LDL Cholesterol is the primary guide to therapy: LDL-cholesterol goal in high risk patients is <100 mg/dL and in very high risk patients is <70 mg/dL. Cholesterol/HDL Ratio Date Value Range Status 02/06/2014 3.6 0.0 - 5.0 Final Chemistries: Recent Labs Lab Test 02/25/14 1053 BUN 13 CR 1.48* GLC 217* A1C 6.1 02/07/2014 Recent Labs Lab Test 02/02/14 1407 ALBUMIN 4.2 BILITOTAL 0.7 ALKPHOS 88 AST 18 ALT 33 Urine Studies: Recent Labs Lab Test 02/02/14 1400 COLOR Light Yellow APPEARANCE Clear URINEGLC 70* URINEBILI Negative URINEKETONE Negative SG 1.008 UBLD Negative URINEPH 8.0* PROTEIN 100* NITRITE Negative LEUKEST Negative RBCU 0 WBCU 1 Recent Labs Lab Test 02/02/14 1400 UTPG 2.15* Assessment: Somewhat debilitated, but overall improved Plan: 1. Graft function: Excellent. Cr at jennifer 2. Immunosuppression Management: Changed -- reduce cellcept to 500 mg qid for some abd discomfort/poor appetite. If no iprovement will swithch to myfortic . Complexity of management:Medium. Contributing factors: Hyperkalemia, orthostatic hypotension 3. Orthostatic hypotension: Patient is drinking plenty of fluids. Will have drink some more here in clinic. We discussed possible blood transfusion, but since hgb remains stable, we can hold off for now. Instructed patient in tips for avoiding swings in BP. Could consider midodrine or fluorinef, especially since had some hyperkalemia. I discussed with nephrology. For now will hold off given mild elevation in SBP (130s). 4. Hypokalemia and hypophosphatemia. I discussed with nephrologly. We will give mag and phos prescription. 5. Luverne - Out today 6 Drain -- out today 7. Wound -- US showed apparent hematoma. Given lack of drainage or hernia will favor following for now. 8, Prophy -- K decreased so will restart bactrim. 9. Stent -- out in 2-3 weeks. Followup: Nephology in 1-2 weeks. Total Time: 30 min, Counselling Time: 10 min. . documented in this encounter Nursing Notes Jaja Deleon LPN - 02/25/2014 1:23 PM CDT Chief Complaint Patient presents with ??? Surgical Followup kidney tx 02/02/14 Mr. Guthrie arrived in clinic for post op kidney tx. Patient is reporting to be woozy, patient having a hard time keeping balance and has no appetite and has had a over active gag reflex. Medications and allergies were reviewed with the patient. Vital signs were obtained BP 108/45 Pulse 80 Resp 16 Ht 1.829 m (6' 0.01) Wt 121.292 kg (267 lb 6.4 oz) BMI 36.26 kg/m2 SpO2 99%. Patient is roomed and ready for the provider. documented in this encounter Plan of Treatment Not on filedocumented as of this encounter Procedures Procedure Name Priority Date/Time Associated Diagnosis Comme nts GLUCOSE BY METER Routine 02/25/2014 1:32 Kidney replaced by Re sults for this PM CDT transplant procedure are i n the results section. IMMUNOLOGY RECIPIENT Routine 02/25/2014 10:54 Kidney replaced by Results for this AM CDT transplant procedure are i n the results section. BK VIRUS Routine 02/25/2014 10:54 Kidney Replaced By Resul ts for this QUANTITATIVE, PCR AM CDT Transplant procedure are in the results section. CBC WITH PLATELETS & Routine 02/25/2014 10:53 Kidney replaced by Results for this DIFFERENTIAL AM CDT transplant procedure are i n the results section. TACROLIMUS BY TANDEM Routine 02/25/2014 10:53 Kidney replaced by Results for this MASS SPECTROMETRY AM CDT transplant procedure are in the results section. INR Routine 02/25/2014 10:53 -donor kidney Re sults for this AM CDT transplant recip ient procedure are in High risk medications the re sults (not anticoagulants) section . 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 MYCOPHENOLIC ACID BY Routine 02/25/2014 10:53 Kidney replaced by Results for this TANDEM MASS AM CDT transplant procedure are i n SPECTROMETRY the results section. MAGNESIUM Routine 02/25/2014 10:53 Kidney replaced by Resul ts for this AM CDT transplant procedure are i n the results section. BASIC METABOLIC Routine 02/25/2014 10:53 Kidney replaced by Re sults for this PANEL AM CDT transplant procedure are i n the results section. documented in this encounter Results (ABNORMAL) Glucose by meter (02/25/2014 1:32 PM CDT) P athologist Signature Glucose 297 (H) 60 - 99 POINT OF CARE mg/dL TEST, GLUCOSE Specimen Anatomical Collection Method Collection Time Receive d Time (Source) Location / / Volume Laterality 02/25/2014 1:32 PM 4 1:40 CDT PM CDT Migel Merchant MD LAB - BEAKER POCT Performing Organization Address City/State/ZIP Code Phon e Number FV POINT OF CARE TEST, GLUCOSE POINT OF CARE TEST, GLUCOSE BK virus PCR quantitative (02/25/2014 10:54 AM CDT) Component Value Ref Test Analysis Performed At [facility] Range Method Time Signature BK Virus DNA Plasma, EDTA [facility] Quant Source anticoagulant [facility] BK Virus DNA <390 [facility] Quant Unit: cpy/mL [facility] Copy/mL [facility] BK Virus DNA <2.6 [facility] Quant Log Unit: log [place] (Note) [facility] INTERPRETIVE INFORMATION: BK Virus, Quantitation by PCR The quantitative range of this assay is 2.6-8.6 log copies/mL(390-390,000,000 copies/mL). A negative result (less than 2.6 log copies/mL or less than 390 copies/mL) does not rule out the presence of PCR inhibitors in the patient specimen or BK virus DNA concentrations below the level of detection of the assay. Inhibition may also lead to underestimation of viral quantitation. No international standard is currently available for calibration of this assay. Caution should be taken when interpreting results generated by different assay methodologies. Test developed and characteristics determined by [facility]. See Compliance Statement A: [employer]/CS BK Virus DNA Not Detected [facility] Quant Interp Reference range: Not Detected [place] (Note) [facility] Performed by [facility], [address] [place] [id number] [email or web address], Kj Mcmillan MD, Lab. Director Specimen Anatomical Collection Method Collection Time Receive d Time (Source) Location / / Volume Laterality Blood specimen 02/25/2014 10:54 4 (specimen) AM CDT 10:55 AM CDT Deysi Alicea MD LAB - MICRO GENERAL ORDERABL ES Performing Organization Address City/[facility]/ZIP Code Phon e Number [address] [address] [facility] Immunology recipient: SOT PRA (Post Tx for Donor Spec Antibody) (02/25/2014 10:54 AM CDT) [facility] Method Time Signature Immunology PRA [facility] Test Name [facility] Immunology Specimen [facility] Result received - [facility] report to follow upon completion. Specimen Anatomical Collection Method Collection Time Receive d Time (Source) Location / / Volume Laterality Blood specimen 02/25/2014 10:54 4 (specimen) AM CDT 10:55 AM CDT Deysi Alicea MD LAB - IMMUNOLOGY ORDERABLES Performing Organization Address City/[facility]/ZIP Code Phon e Number [address] LABS (ABNORMAL) INR (02/25/2014 10:53 AM CDT) P athologist Signature INR 2.39 (H) 0.86 - 1.14 [facility] Specimen Anatomical Collection Method Collection Time Receive d Time (Source) Location / / Volume Laterality Blood specimen 02/25/2014 10:53 4 (specimen) AM CDT 10:54 AM CDT Migel Merchant MD LAB - BLOOD ORDERABLES Performing Organization Address City/[facility] Code Phon e Number [address] LABS (ABNORMAL) Magnesium (02/25/2014 10:53 AM CDT) P athologist Signature Magnesium 1.5 (L) 1.6 - 2.3 [facility] mg/dL [facility] Specimen Anatomical Collection Method Collection Time Receive d Time (Source) Location / / Volume Laterality Blood specimen 02/25/2014 10:53 4 (specimen) AM CDT 10:54 AM CDT Deysi Alicea MD LAB - BLOOD ORDERABLES Performing Organization Address City/State/ZIP Code Phon e Number [address] LABS (ABNORMAL) Phosphorus (02/25/2014 10:53 AM CDT) P athologist Signature Phosphorus 1.3 (L) 2.5 - 4.5 [facility] mg/dL [facility] Specimen Anatomical Collection Method Collection Time Receive d Time (Source) Location / / Volume Laterality Blood specimen 02/25/2014 10:53 4 (specimen) AM CDT 10:54 AM CDT Deysi Alicea MD LAB - BLOOD ORDERABLES Performing Organization Address [facility] Code Phon e Number [facility] [address] LABS Mycophenolic acid (02/25/2014 10:53 AM CDT) Component Value Ref Test Analysis Performed At [facility] gist Range Method Time Signature Last Dose 02/24/14 ?? 1999 [facility] Mycophenolic CORRECTED ON 02/25 AT 1055: PREVIOUSLY REPORTED 1999 [facility] Acid [facility] Mycophenolic 1.39 1.00 - [facility] Acid Mg/L 3.50 [facility] mg/L [facility] MPA Glucuronide 80.2 30.0 - [facility] Level 95.0 [facility] mg/L [facility]AMP[facility] Specimen Anatomical Collection Method Collection Time Receive d Time (Source) Location / / Volume Laterality Blood specimen 02/25/2014 10:53 4 (specimen) AM CDT 10:54 AM CDT Deysi Alicea MD LAB - BLOOD ORDERABLES Performing Organization Address City/[facility]/ZIP Code Phon e Number [facility] [address] LABS Tacrolimus level (02/25/2014 10:53 AM CDT) [facility] gist Method Time Signature Tacrolimus 02/24/14 ?1999 [facility] Last Dose CORRECTED ON 02/25 AT 1055: PREVIOUSLY REPORTED 1999 [facility] Tacrolimus 9.1 5.0 - [facility] Level 15.0 ug/L [facility] Comment: Tacrolimus Reference Range Kidney [...] Location / / Volume Laterality Blood specimen 02/25/2014 10:53 4 (specimen) AM CDT 10:54 AM CDT Deysi Alicea MD LAB - BLOOD ORDERABLES Performing Organization Address City/State/ZIP Code Phon e Number [facility] [address] LABS (ABNORMAL) Basic metabolic panel (02/25/2014 10:53 AM CDT) [facility] gist Method Time Signature Sodium 137 133 - 144 [facility] mmol/L [facility] Potassium 4.6 3.4 - 5.3 [facility] mmol/L [facility] Chloride 108 94 - 109 [facility] mmol/L [facility] Carbon Dioxide 19 (L) 20 - 32 [facility] mmol/L [facility] Anion Gap 10 6 - 17 [facility] mmol/L [facility] Glucose 217 (H) 60 - 99 [facility] mg/dL [facility] Urea Nitrogen 13 7 - 30 [facility] mg/dL [facility] Creatinine 1.48 (H) 0.66 - [facility] 1.25 mg/dL [facility] GFR Estimate 48 (L) >60 [facility] mL/min/1.7 [place] m2 [facility]AMPUS [facility] GFR Estimate If 58 (L) >60 [facility] Black mL/min/1.7 [place] [id number] CAMPUS LABS Calcium 9.6 8.5 - 10.4 [facility] mg/dL [facility] Specimen Anatomical Collection Method Collection Time Receive d Time (Source) Location / / Volume Laterality Blood specimen 02/25/2014 10:53 4 (specimen) AM CDT 10:54 AM CDT Deysi Alicea MD LAB - BLOOD ORDERABLES Performing Organization Address City/State/ZIP Code Phon e Number [address] [address] [facility] (ABNORMAL) CBC with platelets differential (02/25/2014 10:53 AM CDT) [facility] gist Method Time Signature WBC 4.9 4.0 - [facility] 11.0 [facility] 10e9/L CAMPUS [facility]S RBC Count 2.67 (L) 4.4 - 5.9 [facility] 10e12/L [facility] Hemoglobin 7.8 (L) 13.3 - [facility] 17.7 g/dL [facility] Hematocrit 23.5 (L) 40.0 - [facility] 53.0 % [facility] MCV 88 78 - 100 [facility] fl [facility] MCH 29.2 26.5 - [facility] 33.0 pg [facility] MCHC 33.2 31.5 - [facility] 36.5 g/dL [facility] RDW 14.3 10.0 - [facility] 15.0 % [facility] Platelet Count 179 150 - 450 [facility] 10e9/L [facility] Diff Method Automated [facility] Method [facility] % Neutrophils 89.4 % [facility] % Lymphocytes 3.9 % [facility] % Monocytes 5.1 % [facility] % Eosinophils 1.2 % [facility] % Basophils 0.2 % [facility] % Immature 0.2 % [facility] Granulocytes [facility] Absolute 4.4 1.6 - 8.3 [facility] Neutrophil 10e9/L [facility] Absolute 0.2 (L) 0.8 - 5.3 [facility] Lymphocytes 10e9/L [facility] Absolute 0.3 0.0 - 1.3 [facility] Monocytes 10e9/L [facility] Absolute 0.1 0.0 - 0.7 [facility] Eosinophils 10e9/L [facility] Absolute 0.0 0.0 - 0.2 [facility] Basophils 10e9/L [facility] Abs Immature 0.0 0 - 0.4 [facility] Granulocytes 10e9/L [facility] Specimen Anatomical Collection Method Collection Time Receive d Time (Source) Location / / Volume Laterality Blood specimen 02/25/2014 10:53 4 (specimen) AM CDT 10:54 AM CDT Deysi Alicea MD LAB - BLOOD ORDERABLES Performing Organization Address City/State/ZIP Code Phon e Number [facility] [address] [place] [address] [facility] documented in this encounter Visit Diagnoses Diagnosis 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 replaced by transplant -donor kidney transplant recipie nt Kidney replaced by transplant High risk medications (not anticoagulant s) long-term use Encounter for long-term (current) use of other medications alf (current) use of anticoagulant s Long-term (current) use of anticoagulant s Hypomagnesemia Disorders of magnesium metabolism Orthostatic hypotension documented in this encounter Care Teams Dry Color Mixer Relationship Specialty Start Date End Date Momo Forbes PCP - General Family Practice 01/02/14 [facility] [address] [place] [address] Ingrid Santana, RN Registered Nurse Transplant 02/10/12 10/01/15 documented as of this encounter
--- OUTSIDE RECORDS SUMMARY | 2022-03-30 18:48 | XMS_ITS | Encounter Summary ---
:1950 Author Organization [place] Address [facility] [place] [address] Care Team Providers Name Role Phone Ingrid Santana RN Unavailable Momo Forbes Primary Care Provider Reason for Visit Reason Onset Date Comments Patient Reminder 03/26/2014 Encounter Details Date Type Department Care Team Description 03/26/2014 Telephone Nephrology Yesenia Clements CMA Patient Reminder 2nd Floor, Clinic [address] [place] [phone] Social History Tobacco Use Types [...] Telephone Encounter - Yesenia Clements CMA - 03/26/2014 10:34 AM CDT Notified patient of upcoming appointment. Informed him/her to bring current medication list. Patientconfirmed and understood. Yesenia Clements CMA documented in this encounter Plan of Treatment Not on filedocumented as of this encounter Visit Diagnoses Not on filedocumented in this encounter Care Teams Tobacco Wetter Relationship Specialty Start Date End Date Momo Forbes PCP - General Family Practice 01/02/14 [facility] [address] [place] [address] Ingrid Santana, RN Registered Nurse Transplant 02/10/12 10/01/15 documented as of this encounter
--- OUTSIDE RECORDS SUMMARY | 2022-03-30 18:48 | XMS_ITS | Encounter Summary ---
:1950 Author Organization [place] Address [facility] [place] [address] Care Team Providers Name Role Phone Ingrid Santana RN Unavailable Momo Forbes Primary Care Provider Encounter Details Date Type Department Care Team Description 02/18/2014 Orders Only Nephrology Shiva Kahn RN -donor kidney transplant recipie nt (Primary Dx); 2nd Floor, Clinic 2A [facility] Kidney replaced by transplant; [address] [facility] S/P kidney transplant Building [address] [place] [phone] Social History Tobacco Use Types Packs/Day Years [...] nt - Primary Kidney replaced by transplant Kidney replaced by transplant S/P kidney transplant Kidney replaced by transplant documented in this encounter Care Teams Vp Treasurer Relationship Specialty Start Date End Date Forbes, Ton PCP - General Family Practice 01/02/14 [facility] [address] [place] [address] Ingrid Santana, RN Registered Nurse Transplant 02/10/12 10/01/15 documented as of this encounter
--- OUTSIDE RECORDS SUMMARY | 2022-03-30 18:48 | XMS_ITS | Encounter Summary ---
:1950 Author Organization [place] Address [facility] access hospital0 [facility] [place] [address] Care Team Providers Name Role Phone Ingrid Santana RN Unavailable Momo Forbes Primary Care Provider Reason for Visit Reason Comments RECHECK s/p kidney tx Auth/Cert - Closed Specialty Diagnoses / Procedures Referred By Contact Refer red To Contact Surgery Diagnoses S/P Kidney Transplant Uu Periop Procedures COMBINED CYSTOSCOPY, REMOVE STENT(S) [address] [place] [address] Phone: Fax: Referral ID Status Reason Start Date Expiration Date Visits Requ ested Visits Authorized [id number] Closed 1 1 Encounter Details Date Type Department Care Team Description 04/01/2014 Office Visit Nephrology Deysi Alicea Immunosuppressed status (H) (Primary Dx); 2nd Floor, Clinic MD Aline High risk medication use; 2A [facility] Kidney replaced by ania tTashi DOMÍNGUEZ S/P kidney transplant [place] [address] [place] [address] [place], [place] (Work) [id number] [phone] Social History Tobacco Use Types Packs/Day Years [...] Sign Reading Time Taken Comments Blood Pressure 127/66 04/01/2014 12:47 PM CDT Pulse 74 04/01/2014 12:47 PM CDT Temperature 36.4 ??C (97.5 ??F) 04/01/2014 12:47 PM CDT Respiratory Rate - - Oxygen Saturation 96% 04/01/2014 12:47 PM CDT Inhaled Oxygen Concentration - - Weight 120.4 kg (265 lb 6.4 oz) 04/01/2014 12:47 PM CDT Height 182.9 cm (6' 0.01) 04/01/2014 12:47 PM CDT Body Mass Index 35.99 04/01/2014 12:47 PM CDT documented in this encounter Progress Notes Deysi Alicea MD - 04/01/2014 1:06 PM CDT ASSESSMENT AND RECOMMENDATIONS: 1. 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 Currently his serum creatinine at jennifer of around 1.4 mg/d; DSA neg 2. Immunosuppression management. He got 5 doses of Thymoglobulin as induction and is maintained on tacrolimus and CellCept. Last Tac level is high -no follow up, I will ask his education program coordinator to obtain results from his local clnic 3. Anemia- Hemoglobin improved 4. Hypertension -controlled in clinic, may have some high readings at home -I asked patient to monitor BP twice a day and call us if high; he is also seeing cardiology in a week 5. Afib -currently on Cumadin - continue until re-assessed by cardiology in a week, monitored in Cumadin clinic 6. Infection prophylaxis. He was positive for CMV and EBV (donor positive) . He is currently on Valcyte 450 mg p.o. Daily, can increase to bid as his GFR improved. This could be d/marimar 3 months post transplant He will continue on clotrimazole and Bactrim. REASON FOR VISIT: Follow up on kidney transplant. HISTORY OF PRESENT ILLNESS: This is a very pleasant 64-year-old gentleman with past medical history significant for end-stage renal disease due to diabetic nephropathy, status post extended criteria donor kidney transplant from 59-year-old woman on 02/02/2014. Post transplant course was complicated by slow graft function; there was severe atherosclerotic plaque that was cleaned during transplant surgery and the kidney reperfused closely. His postoperative care was complicated by a new onset atrial fibrillation; he was started on anticoagulation and currently remained on Cumadin; He was diagnosed with hematom a around the kidney, which was drained, culture showed light growth of coag neg staph, no antibiotics was prescribed, and he denies any symptoms of fevers chills or pain; Tolerates IS without any problems; Reports higher BP at home sometimes , but does not check at home regularly; BP checked by me tou462/80; HE was previously on Metoprolol 12.5 mg bid for BP control, but felt dizzy and eventually came off. Kidney function remained stable; last Prograf level was 15 (March 28) , no follow up Prograf sincethan ; Patient reports hand tremors . 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 Smoking status: Former Smoker -- 5 years Types: Cigars Quit date: 08/22/2006 ??? Smokeless tobacco: Never Used ??? Alcohol Use: 0.0 oz/week 0 drink(s) per week Comment: occasional drink. ??? Drug Use: No ??? Sexually Active: Not on file Other Topics Concern ??? [...] by mouth 2 times daily02/08/14 Mary Lou Jackson, MADALYN tacrolimus (PROGRAF BRAND) 0.5 MG capsule Take 3 capsules (1.5 mg) by mouth 2 times daily Patient taking differently: Take 2 mg by mouth 2 times daily 02/08/14 Mary Lou Jackson, MADALYN senna-docusate (SENOKOT-S;PERICOLACE) 8.6-50 MG per tablet Take 2 tablets by mouth daily as needed for constipation 02/08/14 Adeline Diaz MD pantoprazole (PROTONIX) 40 MG enteric coated tablet Take 1 tablet (40 mg) by mouth daily 02/08/14 Adeline Diaz MD ondansetron (ZOFRAN) 4 MG tablet Take 1 tablet (4 mg) by mouth every 6 hours as needed for nausea 02/08/14 Adeline Diaz MD Calcium Carbonate-Vitamin D (CALCIUM + D [...] nightly as needed. Reported, Patient Vitals: BP 127/66 Pulse 74 Temp(Src) 97.5 ??F (36.4 ??C) (Oral) Ht 1.829 m (6' 0.01) Wt 120.385 kg (265 lb 6.4 oz) BMI 35.99 kg/m2 SpO2 96% Reviewed. Exam: GENERAL APPEARANCE: alert and no [...] mentation appears normal and affect normal Results: Reviewed. documented in this encounter Nursing Notes Ada Ramirez CMA - 04/01/2014 12:47 PM CDT Chief Complaint Patient presents with ??? RECHECK s/p kidney tx Initial BP 127/66 Pulse 74 Temp(Src) 97.5 ??F (36.4 ??C) (Oral) Ht 1.829 m (6' 0.01) Wt 120.385 kg (265 lb 6.4 oz) BMI 35.99 kg/m2 SpO2 96% Estimated body mass index is 35.99 kg/(m^2) as calculated from the following: Height as of this encounter: 1.829 m (6' 0.01). Weight as of this encounter: 120.385 kg (265 lb 6.4 oz). BP completed using cuff size: large Patient vitals taken, medications and allergies reviewed. Patient roomed and ready for provider. Ada Ramirez MA documented in this encounter Plan of Treatment Not on filedocumented as of this encounter Visit Diagnoses Diagnosis Immunosuppressed status (H) - Primary Unspecified disorder of immune mechanism High risk medication use Encounter for long-term (current) use of other medications Kidney replaced by transplant S/P kidney transplant Kidney replaced by transplant documented in this encounter Care Teams Material Inspector Relationship Specialty Start Date End Date Momo Forbes PCP - General Family Practice 01/02/14 [facility] [address] [place] [address] Ingrid Santana, RN Registered Nurse Transplant 02/10/12 10/01/15 documented as of this encounter
--- OUTSIDE RECORDS SUMMARY | 2022-03-30 18:48 | XMS_ITS | Encounter Summary ---
:1950 Author Organization [place] Address [address] [place] [address] Care Team Providers Name Role Phone Ingrid Santana RN Unavailable Momo Forbes Primary Care Provider Encounter Details Date Type Department Care Team Description 03/22/[address] [facility], [facility], [facility] jm [place] [phone] [place] [address] [address] [place] [address] (Wo rk) Social History Tobacco [...] Associated Comments Diagnosis TACROLIMUS BY TANDEM Routine 04/19/2014 8:40 AM R esults for this MASS SPECTROMETRY CDT procedure are in the results section. TACROLIMUS BY TANDEM Routine 04/16/2014 8:22 AM R esults for this MASS SPECTROMETRY CDT procedure are in the results section. TACROLIMUS BY TANDEM Routine 04/11/2014 8:40 AM R esults for this MASS SPECTROMETRY CDT procedure are in the results section. TACROLIMUS BY TANDEM Routine 04/09/2014 8:45 AM R esults for this MASS SPECTROMETRY CDT procedure are in the results section. TACROLIMUS BY TANDEM Routine 04/05/2014 9:40 AM R esults for this MASS SPECTROMETRY CDT procedure are in the results section. TACROLIMUS BY TANDEM Routine 03/28/2014 8:30 AM R esults for this MASS SPECTROMETRY CDT procedure are in the results section. TACROLIMUS BY TANDEM Routine 03/26/2014 9:18 AM R esults for this MASS SPECTROMETRY CDT procedure are in the results section. TACROLIMUS BY TANDEM Routine 03/14/2014 9:00 AM R esults for this MASS SPECTROMETRY CDT procedure are in the results section. documented in this encounter Results Tacrolimus level (04/19/2014 8:40 AM CDT) [facility] Method Time Signature Tacrolimus Not Provided [facility] Last Dose [facility] Tacrolimus 10.3 5.0 - [facility] Level 15.0 ug/L [facility] Comment: Tacrolimus Reference Range Kidney Transplant [...] Time (Source) Location / / Volume Laterality 04/19/2014 8:40 AM 4 1:03 CDT PM CDT Deysi Alicea MD LAB - BLOOD ORDERABLES Performing Organization Address City/State/ZIP Code Phon e Number [facility] [address] [place], [place] [id number] [place] [address] [facility] Tacrolimus level (04/16/2014 8:22 AM CDT) Patholo gist Method Time Signature Tacrolimus Not Provided [facility] Last Dose [facility] Tacrolimus 9.1 5.0 - [facility] Level 15.0 ug/L [facility] Comment: Tacrolimus Reference Range Kidney Transplant [...] Time (Source) Location / / Volume Laterality 04/16/2014 8:22 AM 4 CDT 11:19 AM CDT Deysi Alicea MD LAB - BLOOD ORDERABLES Performing Organization Address City/State/ZIP Code Phon e Number [facility] [address] [place], [place] [id number] [place] [address] [facility] Tacrolimus level (04/11/2014 8:40 AM CDT) [facility] gist Method Time Signature Tacrolimus Last 04/10/14 [facility] Dose 19:00 [facility] Tacrolimus 14.4 5.0 - [facility] Level 15.0 ug/L [facility] Comment: Tacrolimus Reference Range Kidney Transplant [...] Time (Source) Location / / Volume Laterality 04/11/2014 8:40 AM 4 CDT 12:58 PM CDT Deysi Alicea MD LAB - BLOOD ORDERABLES Performing Organization Address City/State/ZIP Code Phon e Number [facility] [address] [place], [place] [id number] [place] [address] [facility] Tacrolimus level (04/09/2014 8:45 AM CDT) [facility] gist Method Time Signature Tacrolimus Last 04/08/14 [facility] Dose 2000 [facility] Tacrolimus 11.7 5.0 - [facility] Level 15.0 ug/L [facility] Comment: Tacrolimus Reference Range Kidney Transplant [...] Time (Source) Location / / Volume Laterality 04/09/2014 8:45 AM 4 CDT 11:42 AM CDT Deysi Alicea MD LAB - BLOOD ORDERABLES Performing Organization Address City/State/ZIP Code Phon e Number [facility] [address] [place], [place] [id number] [place] [address] [facility] Tacrolimus level (04/05/2014 9:40 AM CDT) [facility] gist Method Time Signature Tacrolimus Last 1999 [facility] Dose 04/04/14 [facility] Tacrolimus 9.7 5.0 - [facility] Level 15.0 ug/L [facility] Comment: Tacrolimus Reference Range Kidney Transplant [...] Time (Source) Location / / Volume Laterality 04/05/2014 9:40 AM 4 1:55 CDT PM CDT Deysi Alicea MD LAB - BLOOD ORDERABLES Performing Organization Address City/State/ZIP Code Phon e Number [facility] [address] [place] [address] [facility] (ABNORMAL) Tacrolimus level (03/28/2014 8:30 AM CDT) [facility] gist Method Time Signature Tacrolimus Last 03/27/14 [facility] Dose [address] [facility] Tacrolimus 15.8 (H) 5.0 - [facility] Level 15.0 ug/L [facility] Comment: Tacrolimus Reference Range Kidney Transplant [...] Time (Source) Location / / Volume Laterality 03/28/2014 8:30 AM 4 CDT 11:46 AM CDT Mingo Dangelo MD LAB - BLOOD ORDERABLES Performing Organization Address City/State/ZIP Code Phon e Number [facility] [address] [place], [place] [phone] [place] [address] [facility] Tacrolimus level (03/26/2014 9:18 AM CDT) [facility] gist Method Time Signature Tacrolimus Last 03/25/14 [facility] Dose [address] [facility] Tacrolimus 9.2 5.0 - [facility] Level 15.0 ug/L [facility] Comment: Tacrolimus Reference Range Kidney Transplant [...] Time (Source) Location / / Volume Laterality 03/26/2014 9:18 AM 4 CDT 12:23 PM CDT Mingo Dangelo MD LAB - BLOOD ORDERABLES Performing Organization Address City/State/ZIP Code Phon e Number [facility] [address] [place], [place] [phone] [place] [address] [facility] Tacrolimus level (03/14/2014 9:00 AM CDT) [facility] gist Method Time Signature Tacrolimus Last 1999 [facility] Dose 03/13/14 [facility] Tacrolimus 9.5 5.0 - [facility] Level 15.0 ug/L [facility] Comment: Tacrolimus Reference Range Kidney Transplant [...] Time (Source) Location / / Volume Laterality 03/14/2014 9:00 AM 4 CDT 11:29 AM CDT Mingo Dangelo MD LAB - BLOOD ORDERABLES Performing Organization Address City/State/ZIP Code Phon e Number [facility] [address] [place], [place] [phone] [place] [address] LABS documented in this encounter Visit Diagnoses Not on filedocumented in this encounter Care Teams Filer Repairer Relationship Specialty Start Date End Date Momo Forbes PCP - General Family Practice 01/02/14 [facility] [address] [place] [address] Ingrid Santana RN Registered Nurse Transplant 02/10/12 10/01/15 documented as of this encounter
--- OUTSIDE RECORDS SUMMARY | 2022-03-30 18:49 | XMS_ITS | Encounter Summary ---
:1950 Author Organization [place] Address [facility] [place] [address] Care Team Providers Name Role Phone Ingrid Santana RN Unavailable Momo Forbes Primary Care Provider Reason for Visit Reason Comments Eval/Assessment LBA Encounter Details Date Type Department Care Team Description 02/12/2014 Infusion Therapy Specialty Infusion Finger, Migel Mac y replaced by Visit and Procedure MD Nathan transplant (Primary Center [address] [place] [address] Dx) [facility] 19 5 n [facility] 2nd Floor [address] [phone] [place], [place] (Work) [address] Social History Tobacco Use [...] Sign Reading Time Taken Comments Blood Pressure 142/69 02/12/2014 11:40 AM CDT Pulse 65 02/12/2014 11:40 AM CDT Temperature 36.6 ??C (97.8 ??F) 02/12/2014 7:40 AM CDT Respiratory Rate 16 02/12/2014 7:40 AM CDT Oxygen Saturation 97% 02/12/2014 11:40 AM CDT Inhaled Oxygen Concentration - - Weight 126.3 kg (278 lb 6.4 oz) 02/12/2014 7:40 AM CDT Height - - Body Mass Index 37.76 02/02/2014 1:05 PM CDT documented in this encounter Patient Instructions Patient InstructionsGladis Olvera RN - 02/12/2014 4:57 PM CDT Dear Diego Guthrie Thank you for choosing [facility] ([facility]) for your transplant cares. The following information is a summary of our appointment as well as important reminders. Additional information: We will see you on for labs & assessment. We look forward in seeing you on your next appointment here at [facility]. Please don???t hesitate to callus at [phone] to reschedule any of your appointments or to speak with one of the [facility] registered nurses. It was a pleasure taking care of you today. Sincerely, Gladis Olvera, BOGDAN [facility] [address] [place] [address]. [place] [id number] January 2014Tuesday 1 2 3 4 5 6 7 8 9 10 11 12 13 14 Admission 12:55 PM Migel Merchant MD Unit 7A [facility] [place] (Discharge: 02/08/2014) XR CHEST 2 VIEWS 1:55 PM (10 min.) Uuxr1 [facility], Radiology TRANSPLANT KIDNEY RECIPIENT DONOR 4:00 PM Migel Merchant MD UU OR XR CHEST PORT 2 VIEWS 11:10 PM (15 min.) Uuxrph1 [facility], Radiology 15 US RENAL TRANSPLANT 7:50 AM (50 min.) Uuus2 [facility], Ultrasound 16 IP EVALUATION 6:00 AM (60 min.) Angela Wilder, PT [facility], Physical Therapy UU TRANSPLANT MEDICATIONS 11:00 AM (120 min.) Josseline Almendarez RN [facility] Patient Learning [place] UU TRANSPLANT FOLLOW-UP CARE 1:00 PM (120 min.) Josseline Almendarez RN [facility], Patient Learning [place] ECH LIMITED 3:35 PM (60 min.) Uuechipr1 [facility], Echocardiography 17 IP TREATMENT 5:30 AM (30 min.) Roderick Lawson, PT [facility], Physical Therapy 18 IP TREATMENT 5:30 AM (30 min.) Yesenia Rodriguez, PT [facility], Physical Therapy 19 IP TREATMENT 5:30 AM (30 min.) Reina Kenny, PT [facility], Physical Therapy US RENAL 11:15 AM (60 min.) Uuus2 [facility], Ultrasound 20 IP TREATMENT 5:30 AM (30 min.) Reina Kenny, PT [facility], Physical Therapy UU TRANSPLANT MEDICATIONS 11:00 AM (120 min.) Em Mohan RN [facility] Patient Learning [place] 21 [facility] NEW TRANSPLANT 7:00 AM (360 min.) [facility] Sipc Chair 9 [facility] Procedure Center 22 [facility] NEW TRANSPLANT 7:00 AM (360 min.) [facility] Sipc Chair 11 [facility] Infusion [facility] Procedure Center 23 [facility] NEW TRANSPLANT 7:00 AM (360 min.) [facility] Sip Chair 12 Specialty Infusion and Procedure Center [facility] KIDNEY TX DISCHARGE 9:00 AM (30 min.) Kaitlynn Leon MD [facility] US RENAL TRANSPLANT 2:00 PM (60 min.) [address] 24 [facility] NEW TRANSPLANT 7:00 AM (360 min.) [facility] Sipc Bed 14 Specialty Infusion and Procedure Center [facility] SIPC RETURN 9:00 AM (30 min.) Kaitlynn Leon MD [facility] 25 26 [facility] SIPC PROCEDURE 7:00 AM (60 min.) [facility] Sipc Chair 9 Specialty Infusion and Procedure Center [facility] SIPC RETURN 8:00 AM (30 min.) Kaitlynn Leon MD [facility] 27 28 29 30 [facility] NEW 9:00 AM (30 min.) [facility] Cvc Consult [facility] Heart [facility] KIDNEY POST OP 1:45 PM (15 min.) Migel Merchant MD Transplant Surgery Clinic February 2014Tuesday 1 2 3 4 5 6 7 8 9 10 11 12 13 14 15 16 17 18 19 20 21 22 COMBINED CYSTOSCOPY, REMOVE STENT(S) 12:15 PM Migel Merchant MD UU OR 23 24 25 26 27 28 29 30 31 documented in this encounter Progress Notes Gladis Olvera RN - 02/12/2014 4:27 PM CDT Diego Guthrie came to [facility] today for a lab and assess following a Kidney transplant on 02/02/14. Discharge date: 02/08/14 activity coordinator: Leandro Kahn Phone number patient can be reached at: [phone] Physical Assessment: See physical assessment located under Document Flowsheets. Incision site: with modesta & slight ecchymosis. Dry dressing changed. Lines: MARGARET drain to bulb suction is draining sero sanguinous fluid. Continues to drain more than 30 ml/day. Pt will have Tuesday off from [facility] and will return for LBA. Gibbs: N/A Urine clarity: yellow, clear per pt report Hydration: Discussed drinking 2-3 L fluid daily Nutrition: Discussed eating foods rich in phosphorus, encouraged drinking 3-4 cans of dark, diet cola daily to increase serum phos levels. Last BM: 02/11/14 Pain: very mild, no pain meds needed Laboratory tests: Standard labs drawn. Plan of care for today: Pt presented to [facility] for labs and assessment. Labs drawn, reviewed with Dr. Leon. Oral phosphorus tablets ordered. Coumadin dose decreased to 5 mg every evening. Pt will have Tuesday off, return and will start with [facility] on TuesdayFebruary 15. Pt's MARGARET remains in place and will be reassessed on . Medications administered: Administrations This Visit insulin lispro (HumaLOG PEN) injection 8 Units Administered Action Dose Route Administered By 02/12/2014 Given 8 Units Subcutaneous Gladis Olvera, RN Patient education: The following teaching topics were addressed: Importance of drinking 2L of non- caffeinated fluids daily, Incisional care, Signs/symptoms of infection, Medications (purposes, doses and times of administration) and Drain care Patient and Other verbalized understanding and all questions answered. Drug level: Prograf level today reviewed with Dr Leon who gave orders to continue current dose of 1.5 mg BID. Patient was updated with this information and verbalized understanding. Discharge Plan Pt will follow up with [facility] on 02/14 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/Kiln Fireman verbalized understanding, all questions answered: YES Discharged from unit at 1145 with whom: significant other to home. Gladis Olvera, RN documented in this encounter Plan of Treatment Not on filedocumented as of this encounter Procedures Procedure Name Priority Date/Time Associated Comments Diagnosis CBC WITH PLATELETS & Routine 02/12/2014 7:41 AM Kidney replace d by Results for this DIFFERENTIAL CDT transplant procedure are i n the results section. TACROLIMUS BY TANDEM Routine 02/12/2014 7:41 AM Kidney replace d by Results for this MASS SPECTROMETRY CDT transplant procedure are in the results section. INR Routine 02/12/2014 7:41 AM Kidney replaced by Res ults for this CDT transplant procedure are i n the results section. PHOSPHORUS Routine 02/12/2014 7:41 AM Kidney replaced by Res ults for this CDT transplant procedure are i n the results section. MAGNESIUM Routine 02/12/2014 7:41 AM Kidney replaced by Res ults for this CDT transplant procedure are i n the results section. BASIC METABOLIC PANEL Routine 02/12/2014 7:41 AM Kidney replac ed by Results for this CDT transplant procedure are i n the results section. documented in this encounter Results (ABNORMAL) INR (02/12/2014 7:41 AM CDT) athologist Signature INR 2.64 (H) 0.86 - 1.14 [facility] Specimen Anatomical Collection Method Collection Time Receive d Time (Source) Location / / Volume Laterality Blood specimen 02/12/2014 7:41 AM 014 7:43 (specimen) CDT AM CDT Kaitlynn Leon MD LAB - BLOOD ORDERABLES Performing Organization Address City/State/ZIP Code Phon e Number [facility] [address] [place] [address] [facility] Tacrolimus level (02/12/2014 7:41 AM CDT) [facility] gist Method Time Signature Tacrolimus Last 02/11/14 [facility] Dose 1900 [facility] Tacrolimus 8.4 5.0 - [facility] Level 15.0 ug/L [facility] Comment: Tacrolimus Reference Range [...] Location / / Volume Laterality Blood specimen 02/12/2014 7:41 AM 014 7:43 (specimen) CDT AM CDT Kaitlynn Leon MD LAB - BLOOD ORDERABLES Performing Organization Address City/State/ZIP Code Phon e Number [address] [address] [place] [facility] (ABNORMAL) CBC with platelets differential (02/12/2014 7:41 AM CDT) [facility] gist Method Time Signature WBC 5.0 4.0 - [facility] 11.0 [facility] 10e9/L [facility] RBC Count 2.41 (L) 4.4 - 5.9 [facility] 10e12/L [facility] Hemoglobin 7.4 (L) 13.3 - [facility] 17.7 g/dL [facility] Hematocrit 22.3 (L) 40.0 - [facility] 53.0 % [facility] MCV 93 78 - 100 [facility] fl [facility] MCH 30.7 26.5 - [facility] 33.0 pg [facility] MCHC 33.2 31.5 - [facility] 36.5 g/dL [facility] RDW 14.5 10.0 - [facility] 15.0 % [facility] Platelet Count 95 (L) 150 - 450 [facility] 10e9/L [facility] Diff Method Automated [facility] Method [facility] % Neutrophils 85.2 % [facility] % Lymphocytes 5.6 % [facility] % Monocytes 4.6 % [facility] % Eosinophils 4.2 % [facility] % Basophils 0.2 % [facility] % Immature 0.2 % [facility] Granulocytes [facility] Absolute 4.3 1.6 - 8.3 [facility] Neutrophil 10e9/L [facility] Absolute 0.3 (L) 0.8 - 5.3 [facility] Lymphocytes 10e9/L [facility] Absolute 0.2 0.0 - 1.3 [facility] Monocytes 10e9/L [facility] Absolute 0.2 0.0 - 0.7 [facility] Eosinophils 10e9/L [facility] Absolute 0.0 0.0 - 0.2 [facility] Basophils 10e9/L [facility] Abs Immature 0.0 0 - 0.4 [facility] Granulocytes 10e9/L [facility] Specimen Anatomical Collection Method Collection Time Receive d Time (Source) Location / / Volume Laterality Blood specimen 02/12/2014 7:41 AM 014 7:43 (specimen) CDT AM CDT Naim S Edward MD LAB - BLOOD ORDERABLES Performing Organization Address City/State/ZIP Code Phon e Number [facility] [address] LABS (ABNORMAL) Phosphorus (02/12/2014 7:41 AM CDT) athologist Signature Phosphorus 1.7 (L) 2.5 - 4.5 [facility] mg/dL [place] [facility] Specimen Anatomical Collection Method Collection Time Receive d Time (Source) Location / / Volume Laterality Blood specimen 02/12/2014 7:41 AM 014 7:43 (specimen) CDT AM CDT Kaitlynn Leon MD LAB - BLOOD ORDERABLES Performing Organization Address City/State/ZIP Code Phon e Number [facility] [address] [place], [place] [phone] [place] [address] LABS Magnesium (02/12/2014 7:41 AM CDT) athologist Signature Magnesium 1.8 1.6 - 2.3 [facility] mg/dL [place] [facility] Specimen Anatomical Collection Method Collection Time Receive d Time (Source) Location / / Volume Laterality Blood specimen 02/12/2014 7:41 AM 014 7:43 (specimen) CDT AM CDT Kaitlynn Leon MD LAB - BLOOD ORDERABLES Performing Organization Address City/State/ZIP Code Phon e Number [facility] [address] [place], [place] [phone] [place] [address] LABS (ABNORMAL) Basic metabolic panel (02/12/2014 7:41 AM CDT) [facility] gist Method Time Signature Sodium 142 133 - 144 [facility] mmol/L [facility] Potassium 4.9 3.4 - 5.3 [facility] mmol/L [facility] Chloride 113 (H) 94 - 109 [facility] mmol/L [facility] Carbon Dioxide 21 20 - 32 [facility] mmol/L [facility] Anion Gap 9 6 - 17 [facility] mmol/L [facility] Glucose 127 (H) 60 - 99 [facility] mg/dL [facility] Urea Nitrogen 24 7 - 30 [facility] mg/dL [facility] Creatinine 1.92 (H) 0.66 - [facility] 1.25 mg/dL [facility] GFR Estimate 36 (L) >60 [facility] mL/min/1.7 [place] m2 [facility]AMP[facility] GFR Estimate If 43 (L) >60 [facility] Black mL/min/1.7 [place] m2 [facility]AMP[facility] Calcium 8.9 8.5 - 10.4 [facility] mg/dL [facility] Specimen Anatomical Collection Method Collection Time Receive d Time (Source) Location / / Volume Laterality Blood specimen 02/12/2014 7:41 AM 014 7:43 (specimen) CDT AM CDT Kaitlynn Leon MD LAB - BLOOD ORDERABLES Performing Organization Address City/State/ZIP Code Phon e Number [facility] [address] [place] [address] [facility] documented in this encounter Visit Diagnoses Diagnosis Kidney replaced by transplant - Primary documented in this encounter Administered Medications Inactive Administered Medications - up to 3 most recent administrations Medication Order MAR Action Action Date Dose Rate Site insulin lispro (HumaLOG PEN) Given 02/12/2014 10:40 AM CDT 8 Uni ts injection 8 Units 8 Units, Subcutaneous, ONCE, On Tue02/12/14 at 1000, For 1 dose, Must be administered 5 min before meal or immediately after. documented in this encounter Care Teams Product Technology Scientist Relationship Specialty Start Date End Date Momo Forbes PCP - General Family Practice 01/02/14 [facility] [address] [place] [address] Ingrid Santana, RN Registered Nurse Transplant 02/10/12 10/01/15 documented as of this encounter
--- OUTSIDE RECORDS SUMMARY | 2022-03-30 18:49 | XMS_ITS | Encounter Summary ---
:1950 Author Organization [place] Address [address] [place] [address]. [place] [address] Care Team Providers Name Role Phone Ingrid Santana RN Unavailable Momo Forbes Primary Care Provider Reason for Visit Reason Onset Date Comments Refill Request 02/12/2014 clotrimazole Encounter Details Date Type Department Care Team Description 02/12/2014 Refill Nephrology Kaitlynn Leon MD Refill Request 2nd Floor, Clinic 2A [facility] (clotrimazole) [address] [address] [phone] Social History Tobacco Use Types Packs/Day Years [...] this encounter Miscellaneous Notes Telephone Encounter - Lianne Braswell, [facility] - 02/12/2014 8:50 AM CDT Last Fill Date: 02/08/14 Last Fill Quantity: 70 Last Office Visit: 02/11/14 Proactive request, and also requesting a new quantity for a one month supply. Thanks! Lianne Braswell, PharmD [facility] Transplant Program [phone] documented in this encounter Plan of Treatment Not on filedocumented as of this encounter Visit Diagnoses Diagnosis S/P kidney transplant Kidney replaced by transplant documented in this encounter Care Teams Indian Blanket Weaver Relationship Specialty Start Date End Date Momo Forbes PCP - General Family Practice 01/02/14 [facility] [address] [place] [address] Ingrid Santana, RN Registered Nurse Transplant 02/10/12 10/01/15 documented as of this encounter
--- OUTSIDE RECORDS SUMMARY | 2022-03-30 18:49 | XMS_ITS | Encounter Summary ---
:1950 Author Organization [place] Address [facility] [place] [address] Care Team Providers Name Role Phone Ingrid Santana RN Unavailable Momo Forbes Primary Care Provider Encounter Details Date Type Department Care Team Description 02/11/2014 Radiant Appointment [facility] 1st Floor, Clinic 1D [place], [place] [address] Social History Tobacco Use Types Packs/Day Years [...] Name Priority Date/Time Associated Diagnosis Comme nts US RENAL TRANSPLANT Routine 02/11/2014 2:48 PM Complication of Results for this WITH DOPPLER CDT transplanted kidney procedur e are in the results section. documented in this encounter Results US renal transplant (02/11/2014 2:48 PM CDT) Anatomical Region Laterality Modality Abdomen/Pelvis Ultrasound Specimen (Source) Anatomical Location Collection Method / Collectio n Time Received Time / Laterality Volume Impressions 02/11/2014 4:57 PM CDT IMPRESSION: ? 1. Perinephric and subincisional fluid c ollections as described above, likely postprocedure hematomas. 2. No hydronephrosis. I have personally reviewed the examinati on and initial interpretation and I agree with the findings. AUBREY BAIG MD Narrative 02/11/2014 4:57 PM CDT EXAMINATION: Ultrasound renal transplant ??02/11/2014 2:36 PM COMPARISON: 02/03/2014. HISTORY: Transplant on 02/02/2014 FINDINGS: There is a right lower quadrant renal tr ansplant. There is a 4.1 x 3.4 x 1.6 cm perinephric fluid collection an terior to the transplanted kidney. There is a 14.4 x 3.9 x 1.4 cm s ubincisional fluid collection. This is slightly decreased in size, and previously this measured approximately 17 x 5.3 x 4.3 cm. There i s no evidence for hydronephrosis. Doppler examination of the renal transpl ant was performed. The resistive indices within upper, mid, and lower arcuate arteries are 0.83, 0.84, and 0.83, respectively. The peak systolic velocities of the renal artery at the renal hilum, and anastomosis are 74, and 86 cm/sec, respectively. The renal vein is patent. The waveform of the common iliac artery above the anastomosi s is normal. The common iliac vein is patent above and below the renal anastomosis. Procedure Note Aubrey Baig MD - 02/11/2014F ormatting of this note might be different from the original. EXAMINATION: Ultrasound renal transplant 02/11/2014 2:36 PM COMPARISON: 02/03/2014. HISTORY: Transplant on 02/02/2014 FINDINGS: There is a right lower quadrant renal tr ansplant. There is a 4.1 x 3.4 x 1.6 cm perinephric fluid collection an terior to the transplanted kidney. There is a 14.4 x 3.9 x 1.4 cm s ubincisional fluid collection. This is slightly decreased in size, and previously this measured approximately 17 x 5.3 x 4.3 cm. There i s no evidence for hydronephrosis. Doppler examination of the renal transpl ant was performed. The resistive indices within upper, mid, and lower arcuate arteries are 0.83, 0.84, and 0.83, respectively. The peak systolic velocities of the renal artery at the renal hilum, and anastomosis are 74, and 86 cm/sec, respectively. The renal vein is patent. The waveform of the common iliac artery above the anastomosi s is normal. The common iliac vein is patent above and below the renal anastomosis. IMPRESSION IMPRESSION: 1. Perinephric and subincisional fluid c ollections as described above, likely postprocedure hematomas. 2. No hydronephrosis. I have personally reviewed the examinati on and initial interpretation and I agree with the findings. AUBREY BAIG MD Kaitlynn Leon MD IMG US ORDERABLES documented in this encounter Visit Diagnoses Not on filedocumented in this encounter Care Teams Supervisor Keymodule Assembly Relationship Specialty Start Date End Date Momo Forbes PCP - General Family Practice 01/02/14 [facility] [address] [place] [address] Ingrid Santana RN Registered Nurse Transplant 02/10/12 10/01/15 documented as of this encounter
--- OUTSIDE RECORDS SUMMARY | 2022-03-30 18:49 | XMS_ITS | Encounter Summary ---
:1950 Author Organization [place] Address [address] [place] [address]. [place] [address] Care Team Providers Name Role Phone Ingrid Santana RN Unavailable Momo Forbes Primary Care Provider Encounter Details Date Type Department Care Team Description 02/11/2014 Orders Only Nephrology Josseline Nice, Kidney replaced by 2nd Floor, Clinic 2A COUPLER transplant (Primary Sanders Wangfelisa Dx) [address] [id number] Social History Tobacco Use Types Packs/Day Years [...] Primary documented in this encounter Care Teams Manufacturing Accountant Relationship Specialty Start Date End Date Momo Forbes PCP - General Family Practice 01/02/14 [facility] [address] [place] [address] Ingrid Santana RN Registered Nurse Transplant 02/10/12 10/01/15 documented as of this encounter
--- OUTSIDE RECORDS SUMMARY | 2022-03-30 18:49 | XMS_ITS | Encounter Summary ---
:1950 Author Organization [place] Address [facility] [place] [address] Care Team Providers Name Role Phone Ingrid Santana RN Unavailable Momo Forbes Primary Care Provider Reason for Visit Reason Onset Date Comments Previsit 02/15/[address] Merchant 02/18 Encounter Details Date Type Department Care Team Description 02/15/2014 Telephone Transplant Surgery Radha Acosta LPN Prev isit (Appt with Dr Anthony Merchant 02/18) 2nd Floor, Clinic [address]A [address] [address] Social History Tobacco Use Types [...] this encounter Miscellaneous Notes Telephone Encounter - Radha Acosta LPN - 02/15/2014 11:32 AM CDT Patient contacted. Appointment confirmed. Patient advised to bring an updated medication list and toarrive 15-20 min early for check in and vitals. Patient stated understanding of plan and confirmed he was getting labs that morning and seeing cardiology. Radha Acosta LPN documented in this encounter Plan of Treatment Not on filedocumented as of this encounter Visit Diagnoses Not on filedocumented in this encounter Care Teams Transit Clerk Relationship Specialty Start Date End Date Momo Forbes PCP - General Family Practice 01/02/14 [place] [id number] Ingrid Santana, RN Registered Nurse Transplant 02/10/12 10/01/15 documented as of this encounter
--- OUTSIDE RECORDS SUMMARY | 2022-03-30 18:49 | XMS_ITS | Encounter Summary ---
:1950 Author Organization [place] Address Formerly [facility]0 [facility] [place] [address] Care Team Providers Name Role Phone Ingrid Santana RN Unavailable Momo Raines Primary Care Provider Reason for Visit Reason Comments Consult consult for afib Encounter Details Date Type Department Care Team Description 02/18/2014 Office Visit [facility] Joseph Hernandez (H) (Primary Dx) Heart MD Tommy Wilburn [facility] Building [place] 4th Floor, Clinic 4B [address] [facility] [address] [phone] [place], [place] (Work) [phone] [phone] Social History Tobacco Use Types Packs/Day Years [...] Sign Reading Time Taken Comments Blood Pressure 133/71 02/18/2014 9:20 AM lt arm sititn g lg CDT cuff Pulse 66 02/18/2014 9:20 AM CDT Temperature - - Respiratory Rate - - Oxygen Saturation 99% 02/18/2014 9:20 AM ra CDT Inhaled Oxygen - - Concentration Weight 123.5 kg (272 lb 4.8 02/18/2014 9:20 AM oz) CDT Height 182.9 cm (6') 02/18/2014 9:20 AM CDT Body Mass Index 36.93 02/18/2014 9:20 AM CDT documented in this encounter Patient Instructions Patient InstructionsMartina Chang RN - 02/18/2014 9:55 AM CDT 1) Stop your Metoprolol and Aspirin Call me if you have any questions or concerns. Martina Chang RN Cardiology Nurse Clinician documented in this encounter Progress Notes Joseph Rodriguez MD - 02/18/2014 9:32 AM CDT PCP Momo Raines CC Atrial fibrillation HPI Mr. Guthrie underwent renal transplantation 2 wks ago. His post op course was complicated by atrial fibrillation. He underwent REFUGIO cardioversion and now has a regular pulse and is taking warfarin. Tho his ventricular rate was in the 150s, he developed sb when put on even a low dose of metoprolol (12.5 bid). This is his very first episode of afib, tho he does have risk factors for developing afib such as htn. Since DC, he has had no problems with bleeding or palpitations. He had no sx from afib tho his HR was high. He is taking asa as well as warfarin. Past Medical History Diagnosis Date ??? Diabetes mellitus type II ??? HTN (hypertension) ??? Hyperlipidemia ??? Diabetic peripheral neuropathy 2002 on insulin x 4 years ??? Retinopathy due to secondary diabetes mellitus ??? Gout ??? Anemia ??? Thrombocytopenia ??? Depression ??? Dialysis patient 08/30/2011 Past Surgical History Procedure Laterality Date ??? 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 Avf right forearm ??? Laser surgery of eye both eyes ??? Cataract iol, rt/lt both eyes ??? Transplant kidney recipient donor 02/02/2014 Procedure: TRANSPLANT KIDNEY RECIPIENT DONOR; Surgeon: Migel Merchant MD; Location: [facility] OR Current outpatient prescriptions:Cholecalciferol (VITAMIN D PO), 5000 1 tab three times a day, Disp:, Rfl: , ; PROGRAF 1 MG capsule, Take 2 capsules (2 mg) by mouth every morning and 1 capsules (1 mg)every evening. Take evening dose with 0.5 mg capsules for total dose 2 mg every morning and 1.5 mg every evening, Disp: 90 capsule, Rfl: 6, tacrolimus (PROGRAF BRAND) 0.5 MG capsule, Take 1 capsule (0.5 mg) by mouth every evening - Take with 1 mg capsules for total dose 2 mg every morning and 1.5 mg every evening, Disp: 30 capsule, Rfl: 6,; clotrimazole (MYCELEX) 10 MG LOZG, Place 1 lozenge (10 mg) inside cheek 3 times daily, Disp: 90 each, Rfl: 2, ; ondansetron (ZOFRAN) 4 MG tablet, Take 2 tablets (8 mg) by mouth every 8 hours as needed for nausea, Disp: 18 tablet, Rfl: 0, METOPROLOL SUCCINATE ER PO, Take 12.5 mg by mouth 2 times daily, Disp: , Rfl: , ; oxyCODONE (ROXICODONE) 5 MG immediate release tablet, Take 1 tablet (5 mg) by mouth every 4 hours as needed for moderate to severe pain, Disp: 28 tablet, Rfl: 0, ; warfarin (COUMADIN) 5 MG tablet, Take 1 tablet (5 mg) bymouth daily, Disp: 30 tablet, Rfl: 0, ; valGANciclovir (VALCYTE) 450 MG tablet, Take 1 tablet (450 mg) by mouth daily, Disp: 84 tablet, Rfl: 0, mycophenolate (CELLCEPT-BRAND NAME) 250 MG capsule, Take [...] (dose unknown), Disp: , Rfl: , ; aspirin 81 MG tablet, Take 1 tablet by mouth daily., Disp: , Rfl: , ; LANTUS VIAL 100 UNITS/ML SC SOLN, Inject 15 Units Subcutaneous every evening , Disp: , Rfl: , ; HumaLOG VIAL 100 UNITS/ML SOLN, Inject 3-13 Units Subcutaneous 3 times daily (before meals) Patient reported his dose 10-12 unit 2-3 times daily before meals, Disp: , Rfl: , sertraline (ZOLOFT) 100 MG tablet, Take 100 mg by mouth daily., Disp: , Rfl: , ; sulfamethoxazole-trimethoprim (BACTRIM,SEPTRA) 400-80 MG per tablet, Take 1 tablet by mouth daily (Patient taking differently: Take 1 tablet by mouth daily Hold), Disp: 31 tablet, Rfl: 11, ; zolpidem (AMBIEN) 10 MG tablet, Take 10 mg by mouth nightly as needed Per patient on hold, Disp: , Rfl: , No Known Allergies History Social History ??? Marital Status: Single Spouse Name: N/A Number of Children: N/A ??? 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 Smoking status: Former Smoker -- 5 years Types: Cigars Quit date: 08/22/2006 ??? Smokeless tobacco: Never Used ??? Alcohol Use: 0.0 oz/week 0 drink(s) per week Comment: occasional drink. ??? Drug Use: None ??? Sexually Active: None Other Topics Concern ??? Blood Transfusions No ??? Seat Belt Yes Social History Narrative Review of Systems: general-stable wt ENT-no tinnitus Psych-no psychosis Neurol-no seizure Cardiac-no syncope Pulmonary-no hemoptysis GI-no melena -no hematuria Skin-no rash Heme-no bruising BP 133/71 Pulse 66 Ht 1.829 m (6') Wt 123.514 kg (272 lb 4.8 oz) BMI 36.92 kg/m2 SpO2 99% Physical Exam: General-no distress, overweight Head-normocephalic, no pallor or cyanosis Eyes-nl sclera, EOMI Neck-no bruit , nl thyroid Lungs-clear to ausculation and percussion, normal respiratory effort Cor-soft s4 no s3 or murmur, LV impulse not appreciated, no venous distension, normal carotid, radial and pedal pulses Abd-soft, no rebound or tenderness Skin-no edema, cyanosis, clubbing or ulcers Neurol-nl gait, oriented X3 Psych-nl affect Infusion Therapy Visit on 02/14/2014 Component Date Value Range Status ??? Sodium 02/14/2014 143 133 - 144 mmol/L Final ??? Potassium 02/14/2014 5.4* 3.4 - 5.3 mmol/L Final ??? Chloride 02/14/2014 113* 94 - 109 mmol/L Final ??? Carbon Dioxide 02/14/2014 20 20 - 32 mmol/L Final ??? Anion Gap 02/14/2014 9 6 - 17 mmol/L Final ??? Glucose 02/14/2014 193* 60 - 99 mg/dL Final ??? Urea Nitrogen 02/14/2014 18 7 - 30 mg/dL Final ??? Creatinine 02/14/2014 1.82* 0.66 - 1.25 mg/dL Final ? ? GFR Estimate 02/14/2014 38* >60 mL/min/1.7m2 Final ? ? GFR Estimate If Black 02/14/2014 46* >60 mL/min/1.7m2 Final ??? Calcium 02/14/2014 9.2 8.5 - 10.4 mg/dL Final ??? Magnesium 02/14/2014 1.6 1.6 - 2.3 mg/dL Final ??? Phosphorus 02/14/2014 2.4* 2.5 - 4.5 mg/dL Final ??? WBC 02/14/2014 6.9 4.0 - 11.0 10e9/L Final ??? RBC Count 02/14/2014 2.55* 4.4 - 5.9 10e12/L Final ??? Hemoglobin 02/14/2014 7.8* 13.3 - 17.7 g/dL Final ??? Hematocrit 02/14/2014 23.4* 40.0 - 53.0 % Final ??? MCV 02/14/2014 92 78 - 100 fl Final ??? MCH 02/14/2014 30.6 26.5 - 33.0 pg Final ??? MCHC 02/14/2014 33.3 31.5 - 36.5 g/dL Final ??? RDW 02/14/2014 14.9 10.0 - 15.0 % Final ??? Platelet Count 02/14/2014 122* 150 - 450 10e9/L Final ??? Diff Method 02/14/2014 Automated Method Final ??? % Neutrophils 02/14/2014 88.7 Final ??? % Lymphocytes 02/14/2014 2.6 Final ??? % Monocytes 02/14/2014 4.5 Final ??? % Eosinophils 02/14/2014 3.8 Final ??? % Basophils 02/14/2014 0.1 Final ??? % Immature Granulocytes 02/14/2014 0.3 Final ??? Absolute Neutrophil 02/14/2014 6.1 1.6 - 8.3 10e9/L Final ??? Absolute Lymphocytes 02/14/2014 0.2* 0.8 - 5.3 10e9/L Final ??? Absolute Monoctyes 02/14/2014 0.3 0.0 - 1.3 10e9/L Final ??? Absolute Eosinophils 02/14/2014 0.3 0.0 - 0.7 10e9/L Final ??? Absolute Basophils 02/14/2014 0.0 0.0 - 0.2 10e9/L Final ??? Abs Immature Granulocytes 02/14/2014 0.0 0 - 0.4 10e9/L Final ??? Tacrolimus Last Dose 02/14/2014 1915 02/13/14 Final ??? Tacrolimus Level 02/14/2014 7.5 5.0 - 15.0 ug/L Final Comment: Tacrolimus Reference Range Kidney Transplant Pediatric ug/L 0-3 months post transplant 10-12 3-6 months post transplant 8-10 6-12 months post transplant 6-8 >12 months post transplant 4-7 Adult 0-6 months post transplant 8-10 6-12 months post transplant 6-8 >12 months post transplant 4-6 >5 years post transplant 3-5 Heart Transplant Pediatric 0-12 months post transplant 10-15 >12 months post transplant 5-10 Adult 0-3 months post transplant 10-15 3-6 months post transplant 8-12 6-12 months post transplant 6-12 >12 months post transplant 6-10 Lung Transplant 0-12 months post transplant 10-15 >12 months post transplant 8-12 Liver Transplant Pediatric 0-3 months post transplant 10-15 3-6 months post transplant 8-10 >6 months post transplant 6-8 Adult 0-3 months post transplant 10-12 3-6 months post transplant 8-10 >6 months post transplant 6-8 Pancreas Transplant 0-6 months post transplant 8-10 >6 months post transplant 5-8 ??? INR 02/14/2014 2.29* 0.86 - 1.14 Final Results for orders placed in visit on 02/14/14 BASIC METABOLIC PANEL Result Value Range Sodium 143 133 - 144 mmol/L Potassium 5.4 (*) 3.4 - 5.3 mmol/L Chloride 113 (*) 94 - 109 mmol/L Carbon Dioxide 20 20 - 32 mmol/L Anion Gap 9 6 - 17 mmol/L Glucose 193 (*) 60 - 99 mg/dL Urea Nitrogen 18 7 - 30 mg/dL Creatinine 1.82 (*) 0.66 - 1.25 mg/dL GFR Estimate 38 (*) >60 mL/min/1.7m2 GFR Estimate If Black 46 (*) >60 mL/min/1.7m2 Calcium 9.2 8.5 - 10.4 mg/dL MAGNESIUM Result Value Range Magnesium 1.6 1.6 - 2.3 mg/dL PHOSPHORUS Result Value Range Phosphorus 2.4 (*) 2.5 - 4.5 mg/dL CBC WITH PLATELETS DIFFERENTIAL Result Value Range WBC 6.9 4.0 - 11.0 10e9/L RBC Count 2.55 (*) 4.4 - 5.9 10e12/L Hemoglobin 7.8 (*) 13.3 - 17.7 g/dL Hematocrit 23.4 (*) 40.0 - 53.0 % MCV 92 78 - 100 fl MCH 30.6 26.5 - 33.0 pg MCHC 33.3 31.5 - 36.5 g/dL RDW 14.9 10.0 - 15.0 % Platelet Count 122 (*) 150 - 450 10e9/L Diff Method Automated Method % Neutrophils 88.7 % Lymphocytes 2.6 % Monocytes 4.5 % Eosinophils 3.8 % Basophils 0.1 % Immature Granulocytes 0.3 Absolute Neutrophil 6.1 1.6 - 8.3 10e9/L Absolute Lymphocytes 0.2 (*) 0.8 - 5.3 10e9/L Absolute Monoctyes 0.3 0.0 - 1.3 10e9/L Absolute Eosinophils 0.3 0.0 - 0.7 10e9/L Absolute Basophils 0.0 0.0 - 0.2 10e9/L Abs Immature Granulocytes 0.0 0 - 0.4 10e9/L TACROLIMUS LEVEL Result Value Range Tacrolimus Last Dose 191402/13/14 Tacrolimus Level 7.5 5.0 - 15.0 ug/L INR Result Value Range INR 2.29 (*) 0.86 - 1.14 ECG reviewed--NSR rate 60 Assessment / Plan 1. Post op afib in pt with normal LVEF, DM, HTN. SB on low dose metoprolol suggests SSS, tho that might have also been a postop phenomenon Warfarin for 4 wks Pt advised to check pulse daily and notify me if irregular Dc metoprolol Follow bp with home cuff DC asa---may resume after warfarin stopped Joseph Rodriguez documented in this encounter Nursing Notes Martina Chang RN - 02/18/2014 9:57 AM CDT 1) Stop your Metoprolol and Aspirin Med Reconcile: Reviewed and verified all current medications with the patient. The updated medication list was printed and given to the patient. Return Appointment: Patient given instructions regarding scheduling next clinic visit. Patient demonstrated understanding of this information and agreed to call with further questions or concerns. Araseli De La Rosa CMA - 02/18/2014 9:20 AM CDT Chief Complaint Patient presents with ??? Consult consult for afib documented in this encounter Plan of Treatment Not on filedocumented as of this encounter Visit Diagnoses Diagnosis Atrial fibrillation (H) - Primary Atrial fibrillation documented in this encounter Care Teams Lead Data Architect Relationship Specialty Start Date End Date Raines, Ton PCP - General Family Practice 01/02/14 [facility] [address] [place] [address] Ingrid Santana, RN Registered Nurse Transplant 02/10/12 10/01/15 documented as of this encounter
--- OUTSIDE RECORDS SUMMARY | 2022-03-30 18:49 | XMS_ITS | Encounter Summary ---
:1950 Author Organization [place] Address [address] [place] [address]. [place] [address] Care Team Providers Name Role Phone Ingrid Santana RN Unavailable Momo Forbes Primary Care Provider Reason for Visit Reason Onset Date Comments Refill Request 02/11/2014 Encounter Details Date Type Department Care Team Description 02/11/2014 Refill Nephrology Isa Ly RN Refill Request 2nd Floor, Clinic [address]A [facility] [address] [place] [address] [phone] Social History Tobacco Use Types Packs/Day [...] transplant documented in this encounter Care Teams Laborer Petroleum Refinery Relationship Specialty Start Date End Date Momo Forbes PCP - General Family Practice 01/02/14 [facility] [address] [place], [place] [phone] Ingrid Santana, RN Registered Nurse Transplant 02/10/12 10/01/15 documented as of this encounter
--- OUTSIDE RECORDS SUMMARY | 2022-03-30 18:49 | XMS_ITS | Encounter Summary ---
:1950 Author Organization [place] Address [facility] [place] [address] Care Team Providers Name Role Phone Ingrid Santana RN Unavailable Momo Forbes Primary Care Provider Reason for Referral CV Cardio consult - Closed Specialty Diagnoses / Procedures Referred By Contact Refer red To Contact Diagnoses Atrial fibrillation (H) Kaitlynn Leon MD [facility] [place] [address] [place] [address] Fax: Referral ID Status Reason Start Date Expiration Date Visits Requ ested Visits Authorized [id number] Closed 02/12/2014 08/11/2014 1 1 Reason for Visit Reason Comments RECHECK Encounter Details Date Type Department Care Team Description 02/12/2014 Office Visit Specialty Infusion Kaitlynn Leon, S/P liborio ey transplant (Primary Dx); and Procedure Center Atrial fibrillation (H); Arpita [facility] Hypopho sphatemia; Building [place] Nausea; 2nd Floor [address] Immunosuppression (H) [address] [facility] [address] [place], [place] [phone] (Work) [phone] Social History Tobacco Use Types Packs/Day Years [...] on file documented as of this encounter Patient Instructions Patient InstructionsGladis Olvera RN - 02/12/2014 11:10 AM CDT Dear Diego Guthrie Thank you for choosing [facility] ([facility]) for your transplant cares. The following information is a summary of our appointment as well as important reminders. Please make sure your phone is available today because I will call to update you with your anti-rejection drug levels and possibly make changes to your anti- rejection dosages. Additional information: -Decrease your coumadin dose to 5 mg every evening -Please return to [facility] on for Labs & assessment -Call us or Leandro Kahn with any questions. -Your Home Care Nurse should begin visits on TuesdayFebruary 14. If you do not hear from them by Tuesday morning, try to reach them at [phone]. We look forward in seeing you on your next appointment here at [facility]. Please don???t hesitate to callus at [phone] to reschedule any of your appointments or to speak with one of the [facility] registered nurses. It was a pleasure taking care of you today. Sincerely, Gladis Olvera RN [facility] - Clinic [address] [place] [address]. [place] [address] documented in this encounter Progress Notes Kaitlynn Leon MD - 02/12/2014 11:24 AM CDT ASSESSMENT AND RECOMMENDATIONS: 1. 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 Currently his serum creatinine at jennifer of around 1.8 mg/dL. His serum creatinine today is around 1.9 mg/dL. 2. Immunosuppression management. He got 5 doses of Thymoglobulin as induction and is maintained on tacrolimus and CellCept. We will adjust his tacrolimus dose to keep the trough level between 8-10. 3. Anemia. His hemoglobin is drifting down slowly, no evidence of any bleed. We will get an ultrasound of the kidney transplant to make sure that the hematoma is not growing in size. 4. Hypertension. Blood pressure is slightly on the higher side. He is only on metoprolol and would consider adding amlodipine 5 mg p.o. daily if his blood pressure remains high. 5. Infection prophylaxis. He was positive for CMV and EBV. He will continue on Valcyte 450 mg p.o. daily. If his serum creatinine continues to get better, and his kidney allograft function is better, we will increase his Valcyte to 900 mg p.o. daily. He will continue on clotrimazole and Bactrim. 6. Postoperative new onset atrial fibrillation, currently he is in sinus rhythm. Continue with warfarin for now. 7. Hypophosphatemia. Given phosphate supplements. 8. Surgical drain. He still has a drain that is draining about 30 mL of serous fluid per day. We will discuss with Transplant Surgery when it is optimal to remove that fluid drain from his right lower quadrant incision. The surgical drain management will be deferred to Transplant Surgery- whether it needs to be removedor not. The issue of continuing warfarin since now he is in normal sinus rhythm and not in atrial fibrillation will be deferred to Cardiology who are seeing the patient on 02/01/2014. At this time, I will keep him on warfarin, but I will back off on the dose to keep his INR goal between 2- 3 and not higher than that. Otherwise, I will give him a phosphorus tablet and he will increase his diet in termsof phosphorus rich foods. REASON FOR VISIT: Follow up on kidney transplant. HISTORY OF PRESENT ILLNESS: This is a very pleasant 63-year-old gentleman with past medical history significant for end-stage renal disease due to diabetic nephropathy, status post extended criteria donor kidney transplant from 59-year-old woman on 02/02/2014. He had issues with slow graft function seeing thatthere was severe atherosclerotic plaque that was cleaned during transplant surgery and the kidney reperfused closely. Otherwise, his serum creatinine started to get better and currently at 1.8-1.9 mg/dL. He received induction immunosuppression with Thymoglobulin and has been maintained on tacrolimus and CellCept. His postoperative care was complicated by a new onset atrial fibrillation. He was placedon anticoagulation and was placed initially on heparin to Coumadin for potential cardioversion by Cardiology, but he had bleeding from his incision so the heparin was held. He had an ultrasound of the kidney transplant done a few days ago showing likely hematoma around the kidney, 17 cm diameter. His h emoglobin has slowly been going down. In the meanwhile, his serum creatinine has been stable around 1.9 mg/dL. He still has MARGARET drain draining about 50-60 mL per day, so I will defer that to Transplant Surgery. We are adjusting his tacrolimus doses. He remains hypophosphatemic, so we are adding phosphorus tablets and he will increase his diet in terms phosphorus rich foods. Otherwise, he has no complaints. He remains in normal sinus rhythm. His INR is 2.6. I will back off on his Coumadin to 5 mg p.o.daily. He will be seen by Dr. Rodriguez from Cardiology in less than a week to decide whether he needs to be on warfarin or not. The ultrasound that was done on 02/11/2014 showed the same fluid collection which is mostly hematomas. His Doppler ultrasound of the kidney looks fine with no evidence of hydronephrosis. He does not really have any complaints, he is feeling better. He remains very anemic with hemoglobin 7.4. I feel that we could wait since it is stable before any transfusions. Transplant Hx: Tx: DDKT Date: 02/02/2014 Present [...] risk medication use ??? S/P kidney transplant PMH: Medical record was reviewed and PMH was discussed with patient and noted below. Past Medical History Diagnosis Date ??? Diabetes mellitus type II ??? HTN (hypertension) ??? Hyperlipidemia ??? Diabetic peripheral neuropathy 2002 on insulin x 4 years ??? Retinopathy due to secondary diabetes mellitus ??? Gout ??? Anemia ??? Thrombocytopenia ??? Depression ??? 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 Smoking status: Former Smoker -- 5 years Types: Cigars Quit date: 08/22/2006 ??? Smokeless tobacco: Never Used ??? Alcohol Use: 0.0 oz/week 0 drink(s) per week Comment: occasional drink. ??? Drug Use: Not on file ??? Sexually Active: Not on file Other [...] mouth nightly as needed. Reported, Patient Vitals: There were no vitals taken for this visit. Reviewed. Exam: GENERAL APPEARANCE: alert and no distress HENT: mouth without ulcers or lesions LYMPHATICS: no cervical nodes RESP: lungs clear to auscultation CV: regular rhythm, normal rate EDEMA: trace LE edema bilaterally ABDOMEN: soft, nondistended, nontender, bowel sounds normal + incision clean and healing + MARGARET drain MS: extremities normal - no gross deformities noted, SKIN: no rash NEURO: grossly non-focal PSYCH: mentation appears normal and affect normal Results: Reviewed. documented in this encounter Plan of Treatment Scheduled Referrals Name Type Priority Associated Diagnoses Order S chedule Cardiology Eval Adult Referral Routine Atrial fibrillation (H) Ordered: 02/12/2014 Referral documented as of this encounter Visit Diagnoses Diagnosis S/P kidney transplant - Primary Kidney replaced by transplant Atrial fibrillation (H) Atrial fibrillation Hypophosphatemia Disorders of phosphorus metabolism Nausea Nausea alone Immunosuppression (H) Unspecified disorder of immune mechanism documented in this encounter Care Teams Neuropsychiatric Aide Relationship Specialty Start Date End Date Momo Forbes PCP - General Family Practice 01/02/14 [facility] [address] [place] [address] Ingrid Santana, RN Registered Nurse Transplant 02/10/12 10/01/15 documented as of this encounter
--- OUTSIDE RECORDS SUMMARY | 2022-03-30 18:49 | XMS_ITS | Encounter Summary ---
:1950 Author Organization [place] Address [address] [place] [address]. [place] [address] Care Team Providers Name Role Phone Ingrid Santana RN Unavailable Momo Forbes Primary Care Provider Reason for Visit Reason Onset Date Comments Refill Request 02/15/2014 Encounter Details Date Type Department Care Team Description 02/15/2014 Refill Nephrology Shiva Kahn RN Refill Request 2nd Floor, Clinic 2A [facility] [place] [id number] [place] [address] [place] [phone] Social History Tobacco Use Types Packs/Day [...] on filedocumented in this encounter Care Teams Line O Scribe Operator Relationship Specialty Start Date End Date Momo Forbes PCP - General Family Practice 01/02/14 [facility] [address] [place], [place] [id number] Ingrid Santana, RN Registered Nurse Transplant 02/10/12 10/01/15 documented as of this encounter
--- OUTSIDE RECORDS SUMMARY | 2022-03-30 18:49 | XMS_ITS | Encounter Summary ---
:1950 Author Organization [place] Address [facility] [address] Care Team Providers Name Role Phone Ingrid Santana RN Unavailable Momo Forbes Primary Care Provider Reason for Visit Reason Comments Eval/Assessment LBA Encounter Details Date Type Department Care Team Description 02/11/2014 Office Visit Specialty Infusion Kaitlynn Leon, Complica tion of transplanted kidney (Primary Dx); and Procedure Center Anemia; Sanders-Wangensteen [facility] HTN (hy pertension); [facility] Immunosuppression (H); 2nd Floor [address] Hypophosphatemia 6 [facility] [address] [place], [place] [phone] (Work) [phone] Social History Tobacco Use Types Packs/Day Years [...] documented as of this encounter Progress Notes Kaitlynn Leon MD - 02/11/2014 9:45 AM CDT ASSESSMENT AND RECOMMENDATIONS: 1. 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 Currently his serum creatinine at jennifer of around 1.8 mg/dL. His serum creatinine today is around 1.97 mg/dL. His tacrolimus trough level today is slightly on the higher side. 2. Immunosuppression management. He got 5 doses [...] in sinus rhythm. Continue with warfarin for now, his INR was 2.2 and we will recheck it again tomorrow and we will decide whether keepinghim on warfarin since he may have paroxysmal atrial fibrillation. We will need cardiology input for that. 7. Mild hyperkalemia, likely multifactorial including the use of tacrolimus and higher levels and also Bactrim. We will advise him on low potassium diet and followup on his potassium level. 8. Hypophosphatemia. The patient is advised to increase his phosphorus containing food. 9. Surgical drain. He still has a drain that is draining about 30 mL of serous fluid per day. We will discuss with Transplant Surgery when it is optimal to remove that fluid drain from his right lower quadrant incision. REASON FOR VISIT: Follow up on the donor kidney transplant from 02/02/2014. HISTORY OF PRESENT ILLNESS: This is a [...] His h emoglobin has slowly been going down, currently at 7.4 grams per deciliter. He does not have any complaints. His tacrolimus trough level has been therapeutic. Otherwise, he is slightly hyperkalemic today. His blood pressure was slightly higher and examined him today and he does not have evidence of irregular rhythm and actually his rhythm was regular and we got an EKG that showed normal sinus rhythm,so hopefully he converted to normal sinus rhythm. His phosphorus is about 1.9. I advised him to increase his phosphorus in his food. 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 documented in this encounter Miscellaneous Notes Pharmacy-Medication Regimen Review - Yi Londono RPH - 02/11/2014 3:27 PM CDT Visited Diego in [facility] for first follow up pharmacy visit post-kidney transplant discharge. Discharge: 02/08/2014 Using Medcard: Yes Med review: Went over all meds and dosing with patient and Tete. Went over Prograf and Cellcept side effects. Medication questions/concerns: Patient requested that we transfer 4 rx's (to profile) from local pharmacy to us here. Pt wants us to get Zofran filled for order picker 02/12- new dose of 2 Q6-8H PRN. Using medbox: Yes Viewed DVD: Didn't bring up Pain: #2-3, feels good, rarely using Oxycodone Other Concerns: none No further questions for this pharmacist. Yi Londono [facility] [phone] documented in this encounter Plan of Treatment Not on filedocumented as of this encounter Procedures Procedure Name Priority Date/Time Associated Diagnosis Comme nts US RENAL TRANSPLANT Routine 02/11/2014 2:48 PM Complication of Results for this WITH DOPPLER CDT transplanted kidney procedur e are in the results section. INR Routine 02/11/2014 9:30 AM Complication of Result s for this CDT transplanted kidney procedur e are in [...] MD Kaitlynn Leon MD IMG US ORDERABLES (ABNORMAL) INR (02/11/2014 9:30 AM CDT) P athologist Signature INR 2.28 (H) 0.86 - 1.14 [facility] LABS Specimen Anatomical Collection Method Collection Time Receive d Time (Source) Location / / Volume Laterality 02/11/2014 9:30 AM 4 9:41 CDT AM CDT Kaitlynn Leon MD LAB - BLOOD ORDERABLES Performing Organization Address City/State/ZIP Code Phon e Number [facility] [address] [place], [place] [phone] [place] [address] LABS documented in this encounter Visit Diagnoses Diagnosis Complication of transplanted kidney - Pr imary Complications of transplanted kidney Anemia Anemia, unspecified HTN (hypertension) Unspecified essential hypertension Immunosuppression (H) Unspecified disorder of immune mechanism Hypophosphatemia Disorders of phosphorus metabolism documented in this encounter Care Teams Retail Helper Relationship Specialty Start Date End Date Momo Forbes PCP - General Family Practice 01/02/14 [facility] [address] [place] [address] Ingrid Santana, RN Registered Nurse Transplant 02/10/12 10/01/15 documented as of this encounter
--- OUTSIDE RECORDS SUMMARY | 2022-03-30 18:49 | XMS_ITS | Encounter Summary ---
:1950 Author Organization [place] Address [address] [place] [address]. [place] [address] Care Team Providers Name Role Phone Ingrid Santana RN Unavailable Momo Forbes Primary Care Provider Reason for Visit Reason Comments Surgical Followup Post op for kidney transplan t POD 16 Encounter Details Date Type Department Care Team Description 02/18/2014 Office Visit Transplant Surgery Migel Merchant S/P jamari cutler transplant (Primary Dx); Clinic MD Nathan Postop check; 2nd Floor, Clinic [address] [place] Immun[facility]uppression (H[facility] 1 95 Atrial fibrillation (H) Building [address] [place] [id number] [place] [address] [place], [place] (Work) [phone] Social History Tobacco Use Types Packs/Day Years [...] Sign Reading Time Taken Comments Blood Pressure 125/68 02/18/2014 1:28 PM CDT Pulse 65 02/18/2014 1:28 PM CDT Temperature 36.8 ??C (98.2 ??F) 02/18/2014 1:28 PM CDT Respiratory Rate - - Oxygen Saturation 99% 02/18/2014 1:28 PM CDT Inhaled Oxygen Concentration - - Weight 122 kg (269 lb) 02/18/2014 1:28 PM CDT Height 182.9 cm (6' 0.01) 02/18/2014 1:28 PM CDT Body Mass Index 36.47 02/18/2014 1:28 PM CDT documented in this encounter Progress Notes Migel Merchant MD - 02/18/2014 1:38 PM CDT Images from the original note were not included. Date of Visit: 02/18/2014 Transplants: 02/02/2014 (Kidney); Postoperative day: 16 History: DDKT for type II DM c/b afib postop. Now in sinus rhytm. Working with cardiology to determine need for coumadin. ECHO today. Drain 100 cc Sat, 60 Sun, 30-40 cc so far today. Labs: Cr at jennifer 1.8 IS: Tac, cellcept Tac 5.9 on 02/15, K 5.2 Prophy: Valcyte, Bactrim (on hold), Myclex, Protonix Immunsupresent Medications Immunosuppressive Agents Disp Start End PROGRAF 1 MG capsule 90 capsule 02/15/2014 Sig: Take 2 capsules (2 mg) by mouth every morning and 1 capsules (1 mg) every evening. Take evening dose with 0.5 mg capsules for total dose 2 mg every morning and 1.5 mg every evening Class: Fax Notes to Pharmacy: Dose change. tacrolimus (PROGRAF BRAND) 0.5 MG capsule 30 capsule 02/15/2014 Sig - Route: Take 1 capsule (0.5 mg) by mouth every evening - Take with 1 mg capsules for total dose 2 mg every morning and 1.5 mg every evening - Oral Class: E-Prescribe Notes to Pharmacy: [...] calcineurin toxicity [] hyperkalemia [] post-transplant diabetes [] decreased appetite [] increased appetite [x] other: None Prescription Medications as of 02/18/2014 Cholecalciferol (VITAMIN D PO) 5000 1 tab three times a day PROGRAF 1 MG capsule Take 2 capsules (2 mg) by mouth every morning and 1 capsules (1 mg) every evening. Take evening dose with 0.5 mg capsules for total dose 2 mg every morning and 1.5 mg every evening tacrolimus (PROGRAF BRAND) 0.5 MG capsule Take 1 capsule (0.5 mg) by mouth every evening - Take with 1 mg capsules for total dose 2 mg every morning and 1.5 mg every evening clotrimazole (MYCELEX) [address] 1 lozenge (10 mg) inside cheek 3 times daily ondansetron (ZOFRAN) 4 MG tablet Take 2 tablets (8 mg) by mouth every 8 hours as needed for nausea warfarin (COUMADIN) 5 MG tablet Take 1 tablet (5 mg) by mouth daily valGANciclovir (VALCYTE) 450 MG tablet Take 1 tablet (450 mg) by mouth daily mycophenolate (CELLCEPT-BRAND NAME) 250 MG capsule Take 4 capsules (1,000 mg) by mouth 2 times daily senna-docusate (SENOKOT-S;PERICOLACE) 8.6-50 MG per tablet Take 2 tablets by mouth daily as needed for constipation pantoprazole (PROTONIX) 40 MG enteric coated tablet [...] tablet Take 100 mg by mouth daily. zolpidem (AMBIEN) 10 MG tablet Take 10 mg by mouth nightly as needed Per patient on hold oxyCODONE (ROXICODONE) 5 MG immediate release tablet Take 1 tablet (5 mg) by mouth every 4 hours asneeded for moderate to severe pain sulfamethoxazole-trimethoprim (BACTRIM,SEPTRA) 400-80 MG per tablet Take 1 tablet by mouth daily Exam: BP 125/68 Pulse 65 Temp(Src) 98.2 ??F (36.8 ??C) (Oral) Ht 1.829 m (6' 0.01) Wt 122.018 kg (269 lb) BMI 36.48 kg/m2 SpO2 99% Well appearing no apparent distress Drain in place. [place] in place. Hematology: Recent Labs Lab Test 02/18/14 0856 02/14/14 0751 02/12/14 0741 HGB 7.8* 7.8* 7.4* PLT 140* 122* 95* WBC 6.3 6.9 5.0 Coags: Recent Labs Lab Test 02/18/14 0856 02/14/14 0751 02/12/14 0741 INR 2.13* 2.29* 2.64* Lipid Profile: Cholesterol Date Value Range Status [...] 5.0 Final Chemistries: Recent Labs Lab Test 02/18/14 0856 BUN 24 CR 1.81* GLC 185* A1C 6.1 02/07/2014 Recent Labs Lab Test 02/02/14 1407 ALBUMIN 4.2 BILITOTAL 0.7 ALKPHOS 88 AST 18 ALT 33 Urine Studies: Recent Labs Lab Test 02/02/14 1400 COLOR Light Yellow APPEARANCE Clear URINEGLC 70* URINEBILI Negative URINEKETONE Negative SG 1.008 UBLD Negative URINEPH 8.0* PROTEIN 100* NITRITE Negative LEUKEST Negative RBCU 0 WBCU 1 Recent Labs Lab Test 02/02/14 1400 UTPG 2.15* Assessment: Overall doing well. Cardiology is working with patient on his new dianosis Afib. Bactrimis being held for high K. Drain in place and draining ~60 cc/day Plan: 1. Graft function: Stable at 1.8 2. Immunosuppression Management: No change will need to adjust based on today's level to goal 8-10. . Complexity of management:Medium. Contributing factors: organ dysfunction and hyperkalemia 3. Stent: out in ~ 4 weeks 4. [place]. Follow up next Tuesday for staple removal and possible d/c of drain. 5. Prophy: Hold bactrim for now. As K normalizes will resume. Followup: Next Tuesday for staple removal, possible stent removal, resumption of bactrim. Total Time: 15 min, Counselling Time: 5 min. . documented in this encounter Nursing Notes Jaja Deleon LPN - 02/18/2014 1:29 PM CDT Chief Complaint Patient presents with ??? Surgical Followup Post op for kidney transplant POD 16 Mr. Guthrie arrived in clinic for post op kidney transplant. Patient is No apparent distress. Medications and allergies were reviewed with the patient. Vital signs were obtained BP 125/68 Pulse 65 Temp(Src) 98.2 ??F (36.8 ??C) (Oral) Ht 1.829 m (6' 0.01) Wt 122.018 kg (269 lb) BMI 36.48 kg/m2 SpO2 99%. Output of MARGARET tube 02/16 100 mL, 02/17 70 mL and today 30 mL. Patient is roomed and ready for the provider. Jaja Deleon LPN documented in this encounter Plan of Treatment Not on filedocumented as of this encounter Visit Diagnoses Diagnosis S/P kidney transplant - Primary Kidney replaced by transplant Postop check Follow-up examination, following unspeci fied surgery Immunosuppression (H) Unspecified disorder of immune mechanism Atrial fibrillation (H) Atrial fibrillation documented in this encounter Care Teams Berry Grower Relationship Specialty Start Date End Date Momo Forbes PCP - General Family Practice 01/02/14 [facility] [address] [place] [address] Ingrid Santana, RN Registered Nurse Transplant 02/10/12 10/01/15 documented as of this encounter
--- OUTSIDE RECORDS SUMMARY | 2022-03-30 18:49 | XMS_ITS | Encounter Summary ---
:1950 Author Organization [place] Address [facility] [place] [address] Care Team Providers Name Role Phone Ingrid Santana RN Unavailable Momo Forbes Primary Care Provider Reason for Visit Reason Comments Eval/Assessment LABS, ASSESSMENT, EDUCATION AND DRESSING CHANGE. Encounter Details Date Type Department Care Team Description 02/14/2014 Infusion Therapy Specialty Infusion Kaitlynn Leon MD Kidney replaced by transplant (Primary D x); Visit and Procedure Center [facility] S/P kidney transplant [facility] Building [address] [address] [place], [place] (Work) [phone] Social History Tobacco Use [...] documented as of this encounter Progress Notes Jose Plata RN - 02/14/2014 3:25 PM CDT Diego Guthrie came to [facility] today for a lab and assess following a Kidney transplant on 02/02/14. Discharge date: 02/08/14 music coordinator: Leandro Kahn Phone number patient can be reached at: [phone] Physical Assessment: See physical assessment located under Document Flowsheets. Incision site: with modesta & slight ecchymosis. Dry dressing changed. Lines: MARGARET drain to bulb suction is draining sero sanguinous fluid. Continues to drain more than 30 ml/day. Gibbs: N/A Urine clarity: yellow, clear per pt report Hydration: Discussed drinking 2-3 L fluid daily Nutrition: Discussed eating foods rich in phosphorus, encouraged drinking 3-4 cans of dark, diet cola daily to increase serum phos levels. Last BM: WNL per patient. Pain: very mild, no pain meds needed Laboratory tests: Standard labs drawn and INR. Plan of care for today: labs, assessment, dressing change and education. Medications administered: Patient education: The following teaching topics were addressed: Importance of drinking 2L of non- caffeinated fluids daily, Incisional care, Signs/symptoms of infection, Good handwashing, Medications (purposes, doses andtimes of administration), Plan of care and Drain care Patient and verbalized understanding and all questions answered. Drug level: Prograf level today reviewed with Dr Leon who gave orders to increase to 2mg in the morning and 1.5 mg in the evening. Patient was updated with this information and verbalized understanding. Discharge Plan Pt will follow up with home care. Labs on Tuesday. 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/Embroidery Designer verbalized understanding, all questions answered: YES Discharged from unit at 1200 with whom: to home. Jose Plata RN documented in this encounter Miscellaneous Notes Addendum Note - Jose Plata RN - 02/14/2014 4:48 PM CDT Addended by: JOSE PLATA on: 02/14/2014 04:48 PM Modules accepted: Orders documented in this encounter Plan of Treatment Not on filedocumented as of this encounter Procedures Procedure Name Priority Date/Time Associated Comments Diagnosis CBC WITH PLATELETS & Routine 02/14/2014 7:51 AM Kidney replace d by Results for this DIFFERENTIAL CDT transplant procedure are i n the results section. TACROLIMUS BY TANDEM Routine 02/14/2014 7:51 AM Kidney replace d by Results for this MASS SPECTROMETRY CDT transplant procedure are in the results section. INR Routine 02/14/2014 7:51 AM Kidney replaced by Res ults for this CDT transplant procedure are i n the results section. PHOSPHORUS Routine 02/14/2014 7:51 AM Kidney replaced by Res ults for this CDT transplant procedure are i n the results section. MAGNESIUM Routine 02/14/2014 7:51 AM Kidney replaced by Res ults for this CDT transplant procedure are i n the results section. BASIC METABOLIC PANEL Routine 02/14/2014 7:51 AM Kidney replac ed by Results for this CDT transplant procedure are i n the results section. documented in this encounter Results (ABNORMAL) INR (02/14/2014 7:51 AM CDT) P athologist Signature INR 2.29 (H) 0.86 - 1.14 [facility] LABS Specimen Anatomical Collection Method Collection Time Receive d Time (Source) Location / / Volume Laterality Blood specimen 02/14/2014 7:51 AM 014 7:58 (specimen) CDT AM CDT Kaitlynn Leon MD LAB - BLOOD ORDERABLES Performing Organization Address City/State/ZIP Code Phon e Number [facility] [address] [place], [place] [phone] [place] [address] LABS Tacrolimus level (02/14/2014 7:51 AM CDT) [facility] gist Method Time Signature Tacrolimus Last 1914 [facility] Dose 02/13/14 [facility] LABS Tacrolimus 7.5 5.0 - [facility] Level 15.0 ug/L [facility] LABS Comment: Tacrolimus Reference Range Kidney Transplant [...] Location / / Volume Laterality Blood specimen 02/14/2014 7:51 AM 014 7:53 (specimen) CDT AM CDT Joseph Quintana MD LAB - BLOOD ORDERABLES Performing Organization Address City/State/ZIP Code Phon e Number [facility] [address] [place], [place] [address] [place] [address] LABS (ABNORMAL) CBC with platelets differential (02/14/2014 7:51 AM CDT) [facility] gist Method Time Signature WBC 6.9 4.0 - [facility] 11.0 [facility] 10e9/L [place] LABS RBC Count 2.55 (L) 4.4 - 5.9 [facility] 10e12/L [facility] LABS Hemoglobin 7.8 (L) 13.3 - [facility] 17.7 g/dL [facility] LABS Hematocrit 23.4 (L) 40.0 - [facility] 53.0 % [facility] LABS MCV 92 78 - 100 [facility] fl [facility]S MCH 30.6 26.5 - [facility] 33.0 pg [facility]S MCHC 33.3 31.5 - [facility] 36.5 g/dL [facility] LABS RDW 14.9 10.0 - [facility] 15.0 % [facility] LABS Platelet Count 122 (L) 150 - 450 [facility] 10e9/L [facility] LABS Diff Method Automated [facility] Method [facility] % Neutrophils 88.7 % [facility] LABS % Lymphocytes 2.6 % [facility] LABS % Monocytes 4.5 % [facility] LABS % Eosinophils 3.8 % [facility] % Basophils 0.1 % [facility] % Immature 0.3 % [facility] Granulocytes [facility] LABS Absolute 6.1 1.6 - 8.3 [facility] Neutrophil 10e9/L [facility] LABS Absolute 0.2 (L) 0.8 - 5.3 [facility] Lymphocytes 10e9/L [facility] Absolute 0.3 0.0 - 1.3 [facility] Monocytes 10e9/L [facility] Absolute 0.3 0.0 - 0.7 [facility] Eosinophils 10e9/L [facility] Absolute 0.0 0.0 - 0.2 [facility] Basophils 10e9/L [facility] LABS Abs Immature 0.0 0 - 0.4 [facility] Granulocytes 10e9/L [facility] LABS Specimen Anatomical Collection Method Collection Time Receive d Time (Source) Location / / Volume Laterality Blood specimen 02/14/2014 7:51 AM 014 7:53 (specimen) CDT AM CDT Joseph Quintana MD LAB - BLOOD ORDERABLES Performing Organization Address City/[facility] Code Phon e Number [address] LABS (ABNORMAL) Phosphorus (02/14/2014 7:51 AM CDT) P athologist Signature Phosphorus 2.4 (L) 2.5 - 4.5 [facility] mg/dL [place] LABS Specimen Anatomical Collection Method Collection Time Receive d Time (Source) Location / / Volume Laterality Blood specimen 02/14/2014 7:51 AM 014 7:53 (specimen) CDT AM CDT Joseph Quintana MD LAB - BLOOD ORDERABLES Performing Organization Address City/[facility]/ZIP Code Phon e Number [address] [facility] LABS Magnesium (02/14/2014 7:51 AM CDT) P athologist Signature Magnesium 1.6 1.6 - 2.3 [facility] mg/dL CAMP[facility] LABS Specimen Anatomical Collection Method Collection Time Receive d Time (Source) Location / / Volume Laterality Blood specimen 02/14/2014 7:51 AM 014 7:53 (specimen) CDT AM CDT Joseph Quintana MD LAB - BLOOD ORDERABLES Performing Organization Address City/[facility] Code Phon e Number [facility] [address] [place] [address] [facility] LABS (ABNORMAL) Basic metabolic panel (02/14/2014 7:51 AM CDT) Patholo gist Method Time Signature Sodium 143 133 - 144 [facility] mmol/L [facility] LABS Potassium 5.4 (H) 3.4 - 5.3 [facility] mmol/L [facility] LABS Chloride 113 (H) 94 - 109 [facility] mmol/L [facility]S Carbon Dioxide 20 20 - 32 [facility] mmol/L [facility]S Anion Gap 9 6 - 17 [facility] mmol/L [facility]S Glucose 193 (H) 60 - 99 [facility] mg/dL [facility]S Urea Nitrogen 18 7 - 30 [facility] mg/dL [facility]S Creatinine 1.82 (H) 0.66 - [facility] 1.25 mg/dL [facility] LABS GFR Estimate 38 (L) >60 [facility] mL/min/1.7 [facility]2 [facility] LABS GFR Estimate If 46 (L) >60 [facility] Black mL/min/1.7 [facility] m2 [facility]AMP[facility] LABS Calcium 9.2 8.5 - 10.4 [facility] mg/dL [facility] LABS Specimen Anatomical Collection Method Collection Time Receive d Time (Source) Location / / Volume Laterality Blood specimen 02/14/2014 7:51 AM 014 7:53 (specimen) CDT AM CDT Joseph Quintana MD LAB - BLOOD ORDERABLES Performing Organization Address City/State/ZIP Code Phon e Number [facility] [address] [place] [address] [facility] LABS documented in this encounter Visit Diagnoses Diagnosis Kidney replaced by transplant - Primary S/P kidney transplant Kidney replaced by transplant documented in this encounter Care Teams Corporate Real Estate Specialist Relationship Specialty Start Date End Date Forbes, Ton PCP - General Family Practice 01/02/14 [facility] [address] [place] [address] Ingrid Santana, RN Registered Nurse Transplant 02/10/12 10/01/15 documented as of this encounter
--- OUTSIDE RECORDS SUMMARY | 2022-03-30 18:49 | XMS_ITS | Encounter Summary ---
:1950 Author Organization [place] Address [facility]0 [facility] [place] [address] Care Team Providers Name Role Phone Ingrid Santana RN Unavailable Momo Forbes Primary Care Provider Reason for Visit Reason Comments Eval/Assessment LBA Encounter Details Date Type Department Care Team Description 02/11/2014 Infusion Therapy Specialty Infusion Finger, Migel Mac y replaced by Visit and Procedure MD Nathan transplant (Primary Center [address] [place] [address] Dx) [facility] [address] [facility] 2nd [address] [phone] [place], [place] (Work) [phone] Social History Tobacco Use [...] Sign Reading Time Taken Comments Blood Pressure 143/74 02/11/2014 11:00 AM CDT Pulse 67 02/11/2014 11:00 AM CDT Temperature 37 ??C (98.6 ??F) 02/11/2014 7:30 AM CDT Respiratory Rate 18 02/11/2014 7:30 AM CDT Oxygen Saturation 98% 02/11/2014 11:00 AM CDT Inhaled Oxygen Concentration - - Weight - - Height - - Body Mass Index - - documented in this encounter Patient Instructions Patient InstructionsGladis Olvera RN - 02/11/2014 4:56 PM CDT Dear Diego Guthrie Thank you for choosing [facility] ([facility]) for your transplant cares. The following information is a summary of our appointment as well as important reminders. Please make sure your phone is available today because I will call to update you with your anti-rejection drug levels and possibly make changes to your anti- rejection dosages. Additional information: Please decrease your Prograf dose to 1.5 mg two times/day. Please strip and empty your drain at least 2 times/day. You will have a ultrasound of your kidney this afternoon, we will follow up with you regarding the result at your appointment in [facility] tomorrow. We look forward in seeing you on your next appointment here at [facility]. Please don???t hesitate to callus at [phone] to reschedule any of your appointments or to speak with one of the [facility] registered nurses. It was a pleasure taking care of you today. Sincerely, Gladis Olvera, RN [facility] [address] [place] [address] documented in this encounter Progress Notes Gladis Olvera RN - 02/11/2014 8:43 AM CDT Diego Guthrie came to [facility] today for a lab and assess following a Kidney transplant on 02/02/14. Discharge date: 02/08/14 quality management coordinator: Leandro Kahn Phone number patient can be reached at: [phone] Physical Assessment: See physical assessment located under Document Flowsheets. Incision site: Dry dressing with modesta. Dressing changed. Small amt oozing, Small amt ecchymosis. Pt instructed on signs/symptoms of infection. Some swelling under incision, pt has known hematoma andwill have a renal ultrasound today at 2pm. Lines: MARGARET drain to bulb suction, serosanguinous drainage. 20 ml at [facility] appointment today. Gibbs: n/a Urine clarity: clear per patient report Hydration: discussed drinking 2-3 L daily Nutrition: Pt states appetite is improving Last BM: 02/10/14 evening Pain: 2 at rest, 5 with activity. Pain adequately controlled with home medications Laboratory tests: Standard labs drawn. Plan of care for today: Pt presents to [facility] for Labs & Assessment following Kid Txp on 02/02/14. Pt's creatinine up to 1.97 today, but ok per Dr. Leon considering the complications with transplant. Hgb 7.4 and pt c/o slight fatigue. Discussed with Dr. Leon and will hold off on a transfusion for now, but will continue to monitor hgb at [facility] appointments over the next 2 days. INR 2.23, EKG obtained and pt found to be in Normal Sinus Rhythm. Pt will remain on coumadin for now and will follow up with a pipe manufacture supervisor near [facility]. Continue daily INRs while pt is coming to [facility]. Pt's MARGARET continues to drain more than 30 ml/24 hours, spoke with Dr. Hernandes, will aim to DC on Tuesday02/13/14. Pt and s.o instructed on how to strip, clean & drain MARGARET. Medications administered: home meds only Patient education: The following teaching topics were addressed: Importance of drinking 2L of non- caffeinated fluids daily, Incisional care, Signs/symptoms of infection, Medications (purposes, doses and times of administration), Plan of care and Drain care Patient and significant other verbalized understanding and all questions answered. Drug level: Prograf level today reviewed with Dr Leon who gave orders to decrease dose to 1.5 mg BID. Patient was updated with this information and verbalized understanding. Discharge Plan Pt will follow up with [facility] tomorrow. 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 Gladis Olvera, RN documented in this encounter Plan of Treatment Not on filedocumented as of this encounter Procedures Procedure Name Priority Date/Time Associated Comments Diagnosis CBC WITH PLATELETS & Routine 02/11/2014 7:40 AM Kidney replace d by Results for this DIFFERENTIAL CDT transplant procedure are i n the results section. TACROLIMUS BY TANDEM Routine 02/11/2014 7:40 AM Kidney replace d by Results for this MASS SPECTROMETRY CDT transplant procedure are in the results section. PHOSPHORUS Routine 02/11/2014 7:40 AM Kidney replaced by Res ults for this CDT transplant procedure are i n the results section. MAGNESIUM Routine 02/11/2014 7:40 AM Kidney replaced by Res ults for this CDT transplant procedure are i n the results section. BASIC METABOLIC PANEL Routine 02/11/2014 7:40 AM Kidney replac ed by Results for this CDT transplant procedure are i n the results section. documented in this encounter Results Tacrolimus level (02/11/2014 7:40 AM CDT) [facility] gist Method Time Signature Tacrolimus Last 02/10/14 [facility] Dose 2000 [facility] Tacrolimus 12.2 5.0 - [facility] Level 15.0 ug/L [facility] Comment: Tacrolimus Reference Range Kidney Transplant [...] Location / / Volume Laterality Blood specimen 02/11/2014 7:40 AM 014 7:41 (specimen) CDT AM CDT Kaitlynn Leon MD LAB - BLOOD ORDERABLES Performing Organization Address City/State/ZIP Code Phon e Number [facility] [address] [place] [address] [facility] (ABNORMAL) CBC with platelets differential (02/11/2014 7:40 AM CDT) [facility] gist Method Time Signature WBC 4.4 4.0 - [facility] 11.0 [facility] 10e9/L [place] [facility] RBC Count 2.39 (L) 4.4 - 5.9 [facility] 10e12/L [facility] Hemoglobin 7.4 (L) 13.3 - [facility] 17.7 g/dL [facility] Hematocrit 22.1 (L) 40.0 - [facility] 53.0 % [facility] MCV 93 78 - 100 [facility] fl [facility] MCH 31.0 26.5 - [facility] 33.0 pg [facility] MCHC 33.5 31.5 - [facility] 36.5 g/dL [facility] RDW 14.7 10.0 - [facility] 15.0 % [facility] Platelet Count 83 (L) 150 - 450 [facility] 10e9/L [facility] Diff Method Automated [facility] Method [facility] % Neutrophils 80.4 % [facility] % Lymphocytes 8.2 % [facility] % Monocytes 5.2 % [facility] % Eosinophils 5.7 % [facility] % Basophils 0.0 % [facility] % Immature 0.5 % [facility] Granulocytes [facility] Absolute 3.5 1.6 - 8.3 [facility] Neutrophil 10e9/L [facility] Absolute 0.4 (L) 0.8 - 5.3 [facility] Lymphocytes 10e9/L [facility] Absolute 0.2 0.0 - 1.3 [facility] Monocytes 10e9/L [facility] Absolute 0.3 0.0 - 0.7 [facility] Eosinophils 10e9/L [facility] Absolute 0.0 0.0 - 0.2 [facility] Basophils 10e9/L [facility] Abs Immature 0.0 0 - 0.4 [facility] Granulocytes 10e9/L [facility] Specimen Anatomical Collection Method Collection Time Receive d Time (Source) Location / / Volume Laterality Blood specimen 02/11/2014 7:40 AM 014 7:41 (specimen) CDT AM CDT Kaitlynn Leon MD LAB - BLOOD ORDERABLES Performing Organization Address City/State/ZIP Code Phon e Number [facility] [address] LABS (ABNORMAL) Phosphorus (02/11/2014 7:40 AM CDT) P athologist Signature Phosphorus 1.9 (L) 2.5 - 4.5 [facility] mg/dL CAMPUS LABS Specimen Anatomical Collection Method Collection Time Receive d Time (Source) Location / / Volume Laterality Blood specimen 02/11/2014 7:40 AM 014 7:41 (specimen) CDT AM CDT Kaitlynn Leon MD LAB - BLOOD ORDERABLES Performing Organization Address City/State/ZIP Code Phon e Number [facility] [address] LABS Magnesium (02/11/2014 7:40 AM CDT) P athologist Signature Magnesium 1.9 1.6 - 2.3 [facility] mg/dL CAMPUS LABS Specimen Anatomical Collection Method Collection Time Receive d Time (Source) Location / / Volume Laterality Blood specimen 02/11/2014 7:40 AM 014 7:41 (specimen) CDT AM CDT Kaitlynn Leon MD LAB - BLOOD ORDERABLES Performing Organization Address City/State/ZIP Code Phon e Number [facility] [address] LABS (ABNORMAL) Basic metabolic panel (02/11/2014 7:40 AM CDT) [facility] Method Time Signature Sodium 142 133 - 144 [facility] mmol/L [facility] Potassium 5.4 (H) 3.4 - 5.3 [facility] mmol/L [facility] Chloride 113 (H) 94 - 109 [facility] mmol/L [facility] Carbon Dioxide 22 20 - 32 [facility] mmol/L [facility] Anion Gap 8 6 - 17 [facility] mmol/L [facility] Glucose 155 (H) 60 - 99 [facility] mg/dL [facility] Urea Nitrogen 31 (H) 7 - 30 [facility] mg/dL [facility] Creatinine 1.97 (H) 0.66 - [facility] 1.25 mg/dL [facility] GFR Estimate 35 (L) >60 [facility] mL/min/1.7 ALTO m2 [facility] GFR Estimate If 42 (L) >60 [facility] Black mL/min/1.7 ALTO m2 [place] [facility] Calcium 9.1 8.5 - 10.4 [facility] mg/dL [facility] Specimen Anatomical Collection Method Collection Time Receive d Time (Source) Location / / Volume Laterality Blood specimen 02/11/2014 7:40 AM 014 7:41 (specimen) CDT AM CDT Kaitlynn Leon MD LAB - BLOOD ORDERABLES Performing Organization Address City/State/ZIP Code Phon e Number [address] [address] [facility] documented in this encounter Visit Diagnoses Diagnosis Kidney replaced by transplant - Primary documented in this encounter Care Teams Director Database Relationship Specialty Start Date End Date Momo Forbes PCP - General Family Practice 01/02/14 [facility] [address] [place] [address] Ingrid Santana, RN Registered Nurse Transplant 02/10/12 10/01/15 documented as of this encounter
--- OUTSIDE RECORDS SUMMARY | 2022-03-30 18:49 | XMS_ITS | Encounter Summary ---
:1950 Author Organization [place] Address [facility]0 [facility] [place] [address] Care Team Providers Name Role Phone Ingrid Santana RN Unavailable Momo Forbes Primary Care Provider Reason for Visit Reason Comments Eval/Assessment LBA Encounter Details Date Type Department Care Team Description 02/14/2014 Office Visit Specialty Infusion Edward, Naim S, Kidney r eplaced by transplant (Primary Dx); and Procedure Center Immunosuppression (H); Arpita [facility] Hyperka lemia; Building [place] Hypophosphatemia; [address] Atrial fibrillation (H); [address] [place], [place]; [place] [address] HTN (hypertension) [place], [place] [phone] (Work) [phone] Social History Tobacco Use Types Packs/Day Years [...] Sign Reading Time Taken Comments Blood Pressure 147/72 02/14/2014 8:00 AM CDT Pulse 64 02/14/2014 8:00 AM CDT Temperature 36.9 ??C (98.4 ??F) 02/14/2014 8:00 AM CDT Respiratory Rate 16 02/14/2014 8:00 AM CDT Oxygen Saturation 100% 02/14/2014 8:00 AM CDT Inhaled Oxygen Concentration - - Weight 125 kg (275 lb 8 oz) 02/14/2014 8:00 AM CDT Height - - Body Mass Index 37.36 02/02/2014 1:05 PM CDT documented in this encounter Progress Notes Kaitlynn Leon MD - 02/14/2014 9:37 AM CDT ASSESSMENT AND RECOMMENDATIONS: 1. Status [...] level between 8-10. 3. Anemia. His hemoglobin was drifting down slowly, no evidence of any bleed. 4. Hypertension. Blood pressure is slightly on [...] Continue with warfarin for now. 7. Hypophosphatemia. 8. Surgical drain. 9. Mild hyperkalemia. Surgical drain draining about 100 mL of serous fluid per day. We will keep it until he can be seen by Transplant Surgery. Overall he is doing well. His serum creatinine is stable at 1.8 mg/dL history and he is therapeutic on his tacrolimus trough levels. I will keep him on Coumadin until he gets to see Cardiology. In the last few days here in the Infusion Center his pulse has been regular, which is good, but the decision to take him off Coumadin or keep him on it will be deferred to Cardiology. As far as the drain, it will be dealt with by Transplant Surgery. REASON FOR VISIT: Follow up on kidney [...] mg/dL. He still has MARGARET drain draining . The ultrasound of the kidney transplant that was done on 02/11/2014 showed the same fluid collection which is mostly hematomas. His Doppler ultrasound of the kidney looks fine with no evidence of hydronephrosis. In the meanwhile since he was last seen, he hasbeen doing well. His surgical drain is still draining about 100 mL per day, so we will leave it in place until he gets seen by surgery. Again on today's visit, his heart rate is regular, but we will keep him on the Coumadin until he gets to be seen by Cardiology. He is slightly hyperkalemic at 5.4, soI asked him to discontinue the Neutra-Phos that has potassium and he can increase his phosphorus rich food. Also, I will hold the Bactrim again. 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 Reported, Patient Vitals: BP 147/72 Pulse 64 Temp(Src) 98.4 ??F (36.9 ??C) (Oral) Resp 16 Wt 124.966 kg (275 lb 8 oz) BMI 37.36 kg/m2 SpO2 100% Reviewed. 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
--- OUTSIDE RECORDS SUMMARY | 2022-03-30 18:49 | XMS_ITS | Encounter Summary ---
:1950 Author Organization [place] Address [facility] [place] [address] Care Team Providers Name Role Phone Ingrid Santana RN Unavailable Momo Forbes Primary Care Provider Reason for Visit Reason Comments Eval/Assessment s/p kidney transplant 8days ago Encounter Details Date Type Department Care Team Description 02/10/2014 Infusion Therapy Specialty Infusion Finger, Migel Mac y replaced by Visit and Procedure MD Nathan transplant (Primary Center [address] [place] [address]) [facility] [address] [phone] [place], [place] (Work) [phone] Social History Tobacco Use [...] Sign Reading Time Taken Comments Blood Pressure 119/52 02/10/2014 8:33 AM CDT Pulse 95 02/10/2014 8:33 AM CDT Temperature 37.2 ??C (98.9 ??F) 02/10/2014 8:30 AM CDT Respiratory Rate 16 02/10/2014 8:30 AM CDT Oxygen Saturation - - Inhaled Oxygen Concentration - - Weight 126.9 kg (279 lb 11.2 oz) 02/10/2014 7:00 AM CDT Height - - Body Mass Index 37.93 02/02/2014 1:05 PM CDT documented in this encounter Progress Notes Em Loomis RN - 02/10/2014 10:40 AM CDT Diego Guthrie came to [facility] today for a lab and assess 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 Discharge date: 02/08/14 school coordinator: Leandro Kahn RN Phone number patient can be reached at: [phone] (girlfriend's cell) Physical Assessment: See physical assessment located under Document Flowsheets. Incision site: stapled, leaking tiny amount clear pink/pale yellow fluid from mid incision (1.5inch area on dressing from 3hours ago) covered with ABD Lines: MARGARET rlq; 30cc out last tamara; 10cc out overnite;; lite pink clear fluid Gibbs: na states is not having voiding difficulty Urine clarity: not asked Hydration: states he [id number] water yesterday but does not like that it makes him pee so often; pt given 2urinals but also encouraged to take pain medication so getting up to go to the bathroom is easier. Pt instructed to drink 2liters water/day and given graduate to measure it with. Nutrition: pt has poor nutrition due to nausea; pt instructed to take po zofran on a schedule for now; he did take zofran 8mg with his am meds here a t [facility] and did feel better an hour later. Last BM: sma;; hard bm today; pt plans to take stool softener today. Pain: incisional--pt had not taken pain meds for awhile and will take them when he gets home. Pt has large area of pink skin in groin area; it appears to be from being moist (pt is large man) ptinstructed to keep it dry and notify if not improving. Laboratory tests: Standard labs drawn. Creatinine continues on downward trend at 1.8 today (from 2.0 yesterday) Electrolytes all wnl HGB LOW at 7.9 -(from 8.2yesterday; pt very pale) WBC 5.5 stable Plan of care for today: labs, assess, reinforce need to have adequate fluid intake. Medications administered:none Patient education: The following teaching topics were addressed: need for proper po, expectation that pt will learn hismedications, what rejection is Patient and friend Zhanna verbalized understanding and all questions answered. Drug level: prograf level today (6.8) from 8.0 yesterday- reviewed with Dr Hernandes who gave orders to take an additional 0.5mg now, and 2mg po This tamara.. Patient was updated with this information and verbalized understanding. 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 TACROLIMUS BY TANDEM Routine 02/10/2014 8:37 AM Kidney replace d by Results for this MASS SPECTROMETRY CDT transplant procedure are in the results section. PHOSPHORUS Routine 02/10/2014 8:37 AM Kidney replaced by Res ults for this CDT transplant procedure are i n the results section. MAGNESIUM Routine 02/10/2014 8:37 AM Kidney replaced by Res ults for this CDT transplant procedure are i n the results section. BASIC METABOLIC PANEL Routine 02/10/2014 8:37 AM Kidney replac ed by Results for this CDT transplant procedure are i n the results section. documented in this encounter Results Tacrolimus level (02/10/2014 8:37 AM CDT) [facility] Method Time Signature Tacrolimus Not Provided [facility] Last Dose [facility] Tacrolimus 6.8 5.0 - [facility] Level 15.0 ug/L [facility] Comment: Tacrolimus Reference Range Kidney Transplant [...] Location / / Volume Laterality Blood specimen 02/10/2014 8:37 AM 014 8:38 (specimen) CDT AM CDT Migel Merchant MD LAB - BLOOD ORDERABLES Performing Organization Address City/State/ZIP Code Phon e Number [facility] [address] [place] [address] [facility] (ABNORMAL) CBC with platelets differential (02/10/2014 8:37 AM CDT) Component Value Ref Test Analysis Performed At [facility] gist Range Method Time Signature WBC 5.5 4.0 - [facility] 11.0 [place] [facility] 10e9/L RBC Count 2.53 (L) 4.4 - [facility] 5.9 CAMPUS LABS 10e12/L Hemoglobin 7.9 (L) 13.3 - [facility] 17.7 CAMPUS LABS g/dL Hematocrit 23.2 (L) 40.0 - [facility] 53.0 % CAMPUS LABS MCV 92 78 - 100 [facility] fl CAMPUS LABS MCH 31.2 26.5 - [facility] 33.0 pg CAMPUS LABS MCHC 34.1 31.5 - [facility] 36.5 CAMPUS LABS g/dL RDW 14.5 10.0 - [facility] 15.0 % CAMPUS LABS Platelet Count 89 (L) 150 - [facility] 450 [facility]AMP[facility] LABS 10e9/L Diff Method Manual [facility] Method DIFFERENTIAL % Neutrophils 88.0 % [facility] DIFFERENTIAL % Lymphocytes 3.4 % [facility] DIFFERENTIAL % Monocytes 4.3 % [facility] DIFFERENTIAL % Eosinophils 4.3 % [facility] DIFFERENTIAL % Basophils 0.0 % [facility] DIFFERENTIAL Absolute 4.8 1.6 - [facility] Neutrophil 8.3 DIFFERENTIAL 10e9/L Absolute 0.2 (L) 0.8 - [facility] Lymphocytes 5.3 DIFFERENTIAL 10e9/L Absolute Monocytes 0.2 0.0 - [facility] 1.3 DIFFERENTIAL 10e9/L Absolute 0.2 0.0 - [facility] Eosinophils 0.7 DIFFERENTIAL 10e9/L Absolute Basophils 0.0 0.0 - [facility] 0.2 DIFFERENTIAL 10e9/L Poikilocytosis Slight [facility] DIFFERENTIAL Teardrop Cells Slight [facility] DIFFERENTIAL Ovalocytes Slight [facility] DIFFERENTIAL Specimen Anatomical Collection Method Collection Time Receive d Time (Source) Location / / Volume Laterality Blood specimen 02/10/2014 8:37 AM 014 8:38 (specimen) CDT AM CDT Migel Merchant MD LAB - BLOOD ORDERABLES Performing Organization Address City/State/ZIP Code Phon e Number [facility] DIFFERENTIAL [facility] (ABNORMAL) Phosphorus (02/10/2014 8:37 AM CDT) P athologist Signature Phosphorus 1.9 (L) 2.5 - 4.5 [facility] mg/dL CAMPUS LABS Specimen Anatomical Collection Method Collection Time Receive d Time (Source) Location / / Volume Laterality Blood specimen 02/10/2014 8:37 AM 014 8:38 (specimen) CDT AM CDT Migel Merchant MD LAB - BLOOD ORDERABLES Performing Organization Address City/State/[facility] Code Phon e Number [facility] [address] LABS Magnesium (02/10/2014 8:37 AM CDT) P athologist Signature Magnesium 2.0 1.6 - 2.3 [facility] mg/dL [facility] Specimen Anatomical Collection Method Collection Time Receive d Time (Source) Location / / Volume Laterality Blood specimen 02/10/2014 8:37 AM 014 8:38 (specimen) CDT AM CDT Migel Merchant MD LAB - BLOOD ORDERABLES Performing Organization Address City/[facility]/ZIP Code Phon e Number [facility] [address] LABS (ABNORMAL) Basic metabolic panel (02/10/2014 8:37 AM CDT) Patholo gist Method Time Signature Sodium 144 133 - 144 [facility] mmol/L [facility] Potassium 4.8 3.4 - 5.3 [facility] mmol/L [facility] Chloride 111 (H) 94 - 109 [facility] mmol/L [facility] Carbon Dioxide 22 20 - 32 [facility] mmol/L [facility] Anion Gap 10 6 - 17 [facility] mmol/L [facility] Glucose 128 (H) 60 - 99 [facility] mg/dL [facility] Urea Nitrogen 34 (H) 7 - 30 [facility] mg/dL [facility] Creatinine 1.80 (H) 0.66 - [facility] 1.25 mg/dL [facility] GFR Estimate 38 (L) >60 [facility] mL/min/1.7 [facility] m2 [facility] GFR Estimate If 46 (L) >60 [facility] Black mL/min/1.7 [place] [id number] CAMPUS LABS Calcium 9.1 8.5 - 10.4 [facility] mg/dL [facility] Specimen Anatomical Collection Method Collection Time Receive d Time (Source) Location / / Volume Laterality Blood specimen 02/10/2014 8:37 AM 014 8:38 (specimen) CDT AM CDT Migel Merchant MD LAB - BLOOD ORDERABLES Performing Organization Address City/State/ZIP Code Phon e Number [facility] [address] [place] [address] [facility] documented in this encounter Visit Diagnoses Diagnosis Kidney replaced by transplant - Primary documented in this encounter Care Teams Set Up Mold Technician Relationship Specialty Start Date End Date Momo Forbes PCP - General Family Practice 01/02/14 [facility] [address] [place] [address] Ingrid Santana, RN Registered Nurse Transplant 02/10/12 10/01/15 documented as of this encounter
--- OUTSIDE RECORDS SUMMARY | 2022-03-30 18:49 | XMS_ITS | Encounter Summary ---
:1950 Author Organization [place] Address [facility] [place] [address] Care Team Providers Name Role Phone Ingrid Santana RN Unavailable Momo Forbes Primary Care Provider Reason for Visit Reason Comments Eval/Assessment LBA Encounter Details Date Type Department Care Team Description 02/09/2014 Infusion Therapy Specialty Infusion Finger, Migel Mac y replaced by transplant (Primary Dx); Visit and Procedure MD [facility] [address] [place] [address] 19 5 [facility] [address]nd Floor [address] [phone] [place], [place] (Work) [id number] Social History Tobacco Use [...] Sign Reading Time Taken Comments Blood Pressure 110/44 02/09/2014 10:45 AM CDT Pulse 93 02/09/2014 10:45 AM CDT Temperature 37.1 ??C (98.7 ??F) 02/09/2014 9:10 AM CDT Respiratory Rate 16 02/09/2014 7:18 AM CDT Oxygen Saturation 96% 02/09/2014 7:18 AM CDT Inhaled Oxygen Concentration - - Weight 127.8 kg (281 lb 12 oz) 02/09/2014 7:18 AM CDT Height - - Body Mass Index 38.21 02/02/2014 1:05 PM CDT documented in this encounter Patient Instructions Patient InstructionsMarc Hernandez RN - 02/09/2014 7:32 AM CDT Dear Diego Guthrie Thank you for choosing [facility] ([facility]) for your transplant cares. The following information is a summary of our appointment as well as important reminders. Please make sure your phone is available today because I will call to update you with your anti-rejection drug levels and possibly make changes to your anti- rejection dosages., Please refer to your hospital discharge instructions for details on home care services, future appointments, phone numbers, and diet/activity levels. Additional information: 1) PUSH FLUIDS 2-3L/day. 2) Monitor MARGARET drainage. 3) Increase Zofran (ondansetron) to TWO 4mg tablets every 6-8 hours as needed for nausea. 4) Bring Humulog Insulin Pen to your future [facility] appointments. 5) Return to [facility] tomorrow at 07:30 a.m We look forward in seeing you on your next appointment here at [facility]. Please don???t hesitate to callus at [phone] to reschedule any of your appointments or to speak with one of the [facility] registered nurses. It was a pleasure taking care of you today. Sincerely, MARC HERNANDEZ RN [facility] [address] [place] [address]. [place] [address] Coumadin Information: Keep Your Diet Steady Keep your diet pretty much the same each day. That???s because many foods contain vitamin K. VitaminK helps your blood clot. So eating foods that contain vitamin K can affect the way Coumadin works. You don???t need to avoid foods that have vitamin K. But you do need to keep the amount of them you eat steady (about the same day to day). If you change your diet for any reason, such as due to illness or to lose weight, be sure to tell your doctor. Examples of foods high in vitamin K are asparagus, avocado, broccoli, cabbage, kale, spinach, and some other leafy green vegetables. Oils, such as soybean, canola, and olive oils, are also high in vitamin K. Other food products can affect the way Coumadin works in your body: Food products that may affect blood clotting include cranberries and cranberry juice, fish oil supplements, garlic, mervin, licorice, and turmeric. Herbs used in herbal teas or supplements can also affect blood clotting. Keep the amount of herbal teas and supplements you use steady. Alcohol can increase the effect of Coumadin in your body. Talk with your health care provider if you have concerns about these or other food products and their effects on Coumadin. documented in this encounter Progress Notes Marc Hernandez RN - 02/09/2014 7:31 AM CDT Diego Guthrie came to [facility] today for a lab and assess following a Kidney transplant on 02/02/14. Discharge date: 02/08/14 patient day coordinator: Leandro Kahn Phone number patient can be reached at: [phone] Physical Assessment: See physical assessment located under Document Flowsheets. Incision site: W/modesta c/d/i. Pt oozing scant amount serosang drainage. Site dressed w/ABD. Lines: MARGARET draining sero-sang: Last nite output:40ml, this morning's output: 30ml. Per Dr Peña remain in at least one more day. Gibbs: N/A, pt voiding w/out difficulty. Urine clarity: Per pt, clear. Denies urgency/frequency/dysuria. Hydration: Drank 30-40 oz of non-caffeinated fluids in the past 24 hours, 2-3L encouraged daily. Pt orthostatic w/some transient lightheadedness w/standing. Order received by Dr Hernandes to administer 1Lof NS today. Post infusion sitting BP 133/79 P92, standing 110/44 P93, pt denies feeling dizzy/lightheaded when standing, pt states he will drink 2-3L of fluid today. Nutrition: Pt with intermittent nausea, taking Zofran 4mg w/some relief. Denies vomiting, no diarrhea. Appetite down. Per Dr Hernandes's orders, 2nd Zofran dose of 4mg administered prior to d/c. Pt diabetic, he did not check his Blood Glucose nor administer s/s insulin this morning/nor brought insulin to [facility] appt. I reviewed w/pt the need to monitor BG's QID and to [facility]. Last BM: yesterday, loose, pt stopped stool softeners. Pain: Incisional pain rated a 5 , declines pain meds at this time. Laboratory tests: Standard labs drawn. Plan of care for today: 1) Labs/Nausea/Orthostatic BP/MARGARET output reviewed with Dr Hernandes, orders: Increase Zofran to 8mg every 6-8 hours, MARGARET to remain in another day, Administer 1L of NS today, d/c pt from [facility] post 1L NS, return to [facility] tomorrow for LBA, No change in Prograf dose, INR 1.59-- increase Coumadin from 5mg to 7.5mg and re- check INR on Tuesday,02/11/14. 2) Lab results Hard Copy given to pt. 3) Rvwd Transplant checklist w/pt and pt's girlfriend. Medications administered: Administrations This Visit sodium chloride 0.9 % BOLUS 1,000 mL Administered Action Dose Route Administered By 02/09/2014 New Bag 1000 mL Intravenous Marc Hernandez RN Patient education: 1) Push fluids. 2-3L per day. 2) Take Zofran 8mg every 6-8 hours. The following teaching topics were addressed: Importance of drinking 2L of non- caffeinated fluids daily, Incisional care, Signs/symptoms of infection, Good handwashing, Medications (purposes, doses andtimes of administration) and Phone numbers to call with concenrs (patient day coordinator, Unit [facility] and [facility]) Patient verbalized understanding and all questions answered. Drug level: Prograf level today reviewed with Dr Hernandes who gave orders to no change in dose. INR of 1.59 also reviewed w/Dr Hernandes who gave orders to increase Coumadin to 7.5mg QD. Patient was updated with this information and verbalized understanding. Discharge Plan Pt will follow up with [facility] tomorrow at 0730. Bring Humulog Insulin Pen to [facility] today (pt did not bring to today's appt). 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/Blast Setter verbalized understanding, all questions answered: YES Discharged from unit at 1050 with whom: girlfriend to home. MARC HERNANDEZ RN documented in this encounter Plan of Treatment Not on filedocumented as of this encounter Procedures Procedure Name Priority Date/Time Associated Comments Diagnosis INR Routine 02/09/2014 8:30 AM Kidney replaced by Res ults for this CDT transplant procedure are i n the results section. CBC WITH PLATELETS & Routine 02/09/2014 7:40 AM Kidney replace d by Results for this DIFFERENTIAL CDT transplant procedure are i n the results section. TACROLIMUS BY TANDEM Routine 02/09/2014 7:40 AM Kidney replace d by Results for this MASS SPECTROMETRY CDT transplant procedure are in the results section. PHOSPHORUS Routine 02/09/2014 7:40 AM Kidney replaced by Res ults for this CDT transplant procedure are i n the results section. MAGNESIUM Routine 02/09/2014 7:40 AM Kidney replaced by Res ults for this CDT transplant procedure are i n the results section. BASIC METABOLIC PANEL Routine 02/09/2014 7:40 AM Kidney replac ed by Results for this CDT transplant procedure are i n the results section. documented in this encounter Results (ABNORMAL) INR (02/09/2014 8:30 AM CDT) athologist Signature INR 1.59 (H) 0.86 - 1.14 [facility] LABS Specimen Anatomical Collection Method Collection Time Receive d Time (Source) Location / / Volume Laterality Blood specimen 02/09/2014 8:30 AM 014 (specimen) CDT 11:07 AM CDT Migel Merchant MD LAB - BLOOD ORDERABLES Performing Organization Address City/State/ZIP Code Phon e Number [facility] [address] [place], [place] [id number] [place] [address] LABS Tacrolimus level (02/09/2014 7:40 AM CDT) [facility] gist Method Time Signature Tacrolimus Not Provided [facility] Last Dose [facility] LABS Tacrolimus 8.0 5.0 - [facility] Level 15.0 ug/L [facility] LABS Comment: Tacrolimus Reference Range [...] Location / / Volume Laterality Blood specimen 02/09/2014 7:40 AM 014 7:49 (specimen) CDT AM CDT Migel Merchant MD LAB - BLOOD ORDERABLES Performing Organization Address City/State/ZIP Code Phon e Number [facility] [address] [place], [place] [id number] [place] [address] [facility] (ABNORMAL) CBC with platelets differential (02/09/2014 7:40 AM CDT) Patholo gist Method Time Signature WBC 5.8 4.0 - [facility] 11.0 [facility] 10e9/L [place] LABS RBC Count 2.66 (L) 4.4 - 5.9 [facility] 10e12/L [facility] LABS Hemoglobin 8.2 (L) 13.3 - [facility] 17.7 g/dL [facility] LABS Hematocrit 24.4 (L) 40.0 - [facility] 53.0 % [facility] LABS MCV 92 78 - 100 [facility] fl [facility] LABS MCH 30.8 26.5 - [facility] 33.0 pg [facility] LABS MCHC 33.6 31.5 - [facility] 36.5 g/dL [facility] LABS RDW 14.6 10.0 - [facility] 15.0 % [facility]S Platelet Count 78 (L) 150 - 450 [facility] 10e9/L [facility]S Diff Method Automated [facility] Method [facility] LABS % Neutrophils 84.8 % [facility] % Lymphocytes 5.2 % [facility] % Monocytes 6.9 % [facility] % Eosinophils 2.9 % [facility] % Basophils 0.0 % [facility] % Immature 0.2 % [facility] Granulocytes [facility]S Absolute 4.9 1.6 - 8.3 [facility] Neutrophil 10e9/L [facility]S Absolute 0.3 (L) 0.8 - 5.3 [facility] Lymphocytes 10e9/L [facility] Absolute 0.4 0.0 - 1.3 [facility] Monocytes 10e9/L [facility] Absolute 0.2 0.0 - 0.7 [facility] Eosinophils 10e9/L [facility]S Absolute 0.0 0.0 - 0.2 [facility] Basophils 10e9/L [facility] LABS Abs Immature 0.0 0 - 0.4 [facility] Granulocytes 10e9/L [facility] LABS Specimen Anatomical Collection Method Collection Time Receive d Time (Source) Location / / Volume Laterality Blood specimen 02/09/2014 7:40 AM 014 7:49 (specimen) CDT AM CDT Migel Merchant MD LAB - BLOOD ORDERABLES Performing Organization Address City/State/ZIP Code Phon e Number [facility] [address] [place], [place] [phone] [place] [address] LABS (ABNORMAL) Phosphorus (02/09/2014 7:40 AM CDT) athologist Signature Phosphorus 2.0 (L) 2.5 - 4.5 [facility] mg/dL CAMPUS LABS Specimen Anatomical Collection Method Collection Time Receive d Time (Source) Location / / Volume Laterality Blood specimen 02/09/2014 7:40 AM 014 7:49 (specimen) CDT AM CDT Migel Merchant MD LAB - BLOOD ORDERABLES Performing Organization Address City/[facility] Phon e Number [facility] [address] LABS Magnesium (02/09/2014 7:40 AM CDT) athologist Signature Magnesium 1.9 1.6 - 2.3 [facility] mg/dL [place] [facility]S Specimen Anatomical Collection Method Collection Time Receive d Time (Source) Location / / Volume Laterality Blood specimen 02/09/2014 7:40 AM 014 7:49 (specimen) CDT AM CDT Migel Merchant MD LAB - BLOOD ORDERABLES Performing Organization Address City/[facility] Code Phon e Number [facility] [address] LABS (ABNORMAL) Basic metabolic panel (02/09/2014 7:40 AM CDT) [facility] gist Method Time Signature Sodium 145 (H) 133 - 144 [facility] mmol/L [facility] LABS Potassium 4.5 3.4 - 5.3 [facility] mmol/L [facility] LABS Chloride 110 (H) 94 - 109 [facility] mmol/L [facility] LABS Carbon Dioxide 24 20 - 32 [facility] mmol/L [facility] LABS Anion Gap 10 6 - 17 [facility] mmol/L [facility] LABS Glucose 137 (H) 60 - 99 [facility] mg/dL [facility] LABS Urea Nitrogen 48 (H) 7 - 30 [facility] mg/dL [facility] LABS Creatinine 2.02 (H) 0.66 - [facility] 1.25 mg/dL [facility] LABS GFR Estimate 34 (L) >60 [facility] mL/min/1.7 [place] m2 CAMPUS LABS GFR Estimate If 41 (L) >60 [facility] Black mL/min/1.7 [place] [address] CAMPUS LABS Calcium 9.2 8.5 - 10.4 [facility] mg/dL [facility] LABS Specimen Anatomical Collection Method Collection Time Receive d Time (Source) Location / / Volume Laterality Blood specimen 02/09/2014 7:40 AM 014 7:49 (specimen) CDT AM CDT Migel Merchant MD LAB - BLOOD ORDERABLES Performing Organization Address City/State/ZIP Code Phon e Number [address] [address] [facility] LABS documented in this encounter Visit Diagnoses Diagnosis Kidney replaced by transplant - Primary Nausea Nausea alone documented in this encounter Administered Medications Inactive Administered Medications - up to 3 most recent administrations Medication Order MAR Action Action Date Dose Rate Site sodium chloride 0.9 % New Bag 02/09/2014 9:40 AM CDT 1,000 mLs 10 00 mL/hr BOLUS 1,000 mL Intravenous, 1,000 mL, ONCE, at 1,000 mL/hr, Administer over 1 Hours, On 02/09/14 at 1000, For 1 dose documented in this encounter Care Teams Financial Systems Manager Relationship Specialty Start Date End Date Momo Forbes PCP - General Family Practice 01/02/14 [facility] [address] [place] [address] Ingrid Santana, RN Registered Nurse Transplant 02/10/12 10/01/15 documented as of this encounter
--- OUTSIDE RECORDS SUMMARY | 2022-03-30 18:49 | XMS_ITS | Encounter Summary ---
:1950 Author Organization [place] Address [address] [place] [address]. [place] [address] Care Team Providers Name Role Phone Ingrid Santana RN Unavailable Momo Forbes Primary Care Provider Encounter Details Date Type Department Care Team Description 02/15/2014 Orders Only Nephrology Shiva Kahn RN Kidney replaced by transplant; 2nd Floor, Clinic 2A [facility] S/P kidney transplant Tommy Wangensteen [address] [place] [address] [place] [id number] [phone] Social History Tobacco Use Types Packs/Day Years [...] Visit Diagnoses Diagnosis Kidney replaced by transplant S/P kidney transplant Kidney replaced by transplant documented in this encounter Care Teams Type Bar And Segment Assembler Relationship Specialty Start Date End Date Momo Forbes PCP - General Family Practice 01/02/14 [facility] [address] [place] [address] Ingrid Santana, RN Registered Nurse Transplant 02/10/12 10/01/15 documented as of this encounter
--- OUTSIDE RECORDS SUMMARY | 2022-03-30 18:49 | XMS_ITS | Encounter Summary ---
:1950 Author Organization [place] Address [facility] [place] [address] Care Team Providers Name Role Phone Ingrid Santana RN Unavailable Momo Forbes Primary Care Provider Encounter Details Date Type Department Care Team Description 02/18/2014 Orders Only The Transplant Deysi Burns, Kidney replaced by transplan t; 2nd Floor, Clinic 2A S/P kidney transplant [facility] [address] [place] [address] [place] [address] [address] [place] [address] [place], [place] [phone] (Wo rk) [address] [phone] Social History Tobacco Use Types Packs/Day Years [...] Comments Diagnosis CBC WITH PLATELETS & Routine 02/18/2014 8:56 AM Kidney replace d by Results for this DIFFERENTIAL CDT transplant procedure are in S/P kidney the results transplant section. TACROLIMUS BY TANDEM Routine 02/18/2014 8:56 AM Kidney replace d by Results for this MASS SPECTROMETRY CDT transplant procedure are in S/P kidney the results transplant section. INR Routine 02/18/2014 8:56 AM Kidney replaced by Res ults for this CDT transplant procedure are in S/P kidney the results transplant section. PHOSPHORUS Routine 02/18/2014 8:56 AM Kidney replaced by Res ults for this CDT transplant procedure are in S/P kidney the results transplant section. MAGNESIUM Routine 02/18/2014 8:56 AM Kidney replaced by Res ults for this CDT transplant procedure are in S/P kidney the results transplant section. BASIC METABOLIC PANEL Routine 02/18/2014 8:56 AM Kidney replac ed by Results for this CDT transplant procedure are in S/P kidney the results transplant section. documented in this encounter Results (ABNORMAL) Magnesium (02/18/2014 8:56 AM CDT) athologist Signature Magnesium 1.5 (L) 1.6 - 2.3 [facility] mg/dL [place] LABS Specimen Anatomical Collection Method Collection Time Receive d Time (Source) Location / / Volume Laterality Blood specimen 02/18/2014 8:56 AM 014 8:57 (specimen) CDT AM CDT Kaitlynn Leon MD LAB - BLOOD ORDERABLES Performing Organization Address City/[facility]/ZIP Code Phon e Number [address] LABS (ABNORMAL) Phosphorus (02/18/2014 8:56 AM CDT) athologist Signature Phosphorus 1.9 (L) 2.5 - 4.5 [facility] mg/dL [place] LABS Specimen Anatomical Collection Method Collection Time Receive d Time (Source) Location / / Volume Laterality Blood specimen 02/18/2014 8:56 AM 014 8:57 (specimen) CDT AM CDT Kaitlynn Leon MD LAB - BLOOD ORDERABLES Performing Organization Address City/[facility]/ZIP Code Phon e Number [address] LABS Tacrolimus level (02/18/2014 8:56 AM CDT) Patholo gist Method Time Signature Tacrolimus Last 02/12/14 [facility] Dose 1930 [facility] LABS Tacrolimus 14.1 5.0 - [facility] Level 15.0 ug/L [facility] LABS Comment: Tacrolimus Reference Range [...] Location / / Volume Laterality Blood specimen 02/18/2014 8:56 AM 014 8:57 (specimen) CDT AM CDT Kaitlynn Leon MD LAB - BLOOD ORDERABLES Performing Organization Address City/State/ZIP Code Phon e Number [facility] [address] [place] [address] [facility] LABS (ABNORMAL) CBC with platelets differential (02/18/2014 8:56 AM CDT) Patholo gist Method Time Signature WBC 6.3 4.0 - [facility] 11.0 [facility] 10e9/L [place] LABS RBC Count 2.59 (L) 4.4 - 5.9 [facility] 10e12/L [facility] LABS Hemoglobin 7.8 (L) 13.3 - [facility] 17.7 g/dL [facility] LABS Hematocrit 23.7 (L) 40.0 - [facility] 53.0 % [facility] LABS MCV 92 78 - 100 [facility] fl [facility] LABS MCH 30.1 26.5 - [facility] 33.0 pg [facility] LABS MCHC 32.9 31.5 - [facility] 36.5 g/dL [facility] LABS RDW 14.7 10.0 - [facility] 15.0 % [facility] LABS Platelet Count 140 (L) 150 - 450 [facility] 10e9/L [facility] LABS Diff Method Automated [facility] Method [facility] LABS % Neutrophils 84.7 % [facility] LABS % Lymphocytes 3.8 % [facility] LABS % Monocytes 6.0 % [facility] LABS % Eosinophils 4.8 % [facility] LAB[facility] % Basophils 0.5 % [facility] LABS % Immature 0.2 % [facility] Granulocytes [facility] LABS Absolute 5.3 1.6 - 8.3 [facility] Neutrophil 10e9/L [facility] LABS Absolute 0.2 (L) 0.8 - 5.3 [facility] Lymphocytes 10e9/L [facility] LABS Absolute 0.4 0.0 - 1.3 [facility] Monocytes 10e9/L [facility] LABS Absolute 0.3 0.0 - 0.7 [facility] Eosinophils 10e9/L [facility] LABS Absolute 0.0 0.0 - 0.2 [facility] Basophils 10e9/L [facility] LABS Abs Immature 0.0 0 - 0.4 [facility] Granulocytes 10e9/L [facility] LABS Specimen Anatomical Collection Method Collection Time Receive d Time (Source) Location / / Volume Laterality Blood specimen 02/18/2014 8:56 AM 014 8:57 (specimen) CDT AM CDT Kaitlynn Leon MD LAB - BLOOD ORDERABLES Performing Organization Address City/State/ZIP Code Phon e Number [facility] [address] [place], [place] [id number] [place] [address] LABS (ABNORMAL) Basic metabolic panel (02/18/2014 8:56 AM CDT) Patholo gist Method Time Signature Sodium 141 133 - 144 [facility] mmol/L [facility] LABS Potassium 5.2 3.4 - 5.3 [facility] mmol/L [facility] LABS Chloride 112 (H) 94 - 109 [facility] mmol/L [facility] LABS Carbon Dioxide 18 (L) 20 - 32 [facility] mmol/L [facility] LABS Anion Gap 11 6 - 17 [facility] mmol/L [facility] LABS Glucose 185 (H) 60 - 99 [facility] mg/dL [facility] LABS Urea Nitrogen 24 7 - 30 [facility] mg/dL [facility] LABS Creatinine 1.81 (H) 0.66 - [facility] 1.25 mg/dL [facility] LABS GFR Estimate 38 (L) >60 [facility] mL/min/1.7 [place] m2 [place] LABS GFR Estimate If 46 (L) >60 [facility] Black mL/min/1.7 [place] m2 [place] LABS Calcium 9.4 8.5 - 10.4 [facility] mg/dL [facility] LABS Specimen Anatomical Collection Method Collection Time Receive d Time (Source) Location / / Volume Laterality Blood specimen 02/18/2014 8:56 AM 014 8:57 (specimen) CDT AM CDT Kaitlynn Leon MD LAB - BLOOD ORDERABLES Performing Organization Address City/[facility] Code Phon e Number [address] LABS (ABNORMAL) INR (02/18/2014 8:56 AM CDT) P athologist Signature INR 2.13 (H) 0.86 - 1.14 [facility] LABS Specimen Anatomical Collection Method Collection Time Receive d Time (Source) Location / / Volume Laterality Blood specimen 02/18/2014 8:56 AM 014 8:57 (specimen) CDT AM CDT Kaitlynn Leon MD LAB - BLOOD ORDERABLES Performing Organization Address City/[facility] Code Phon e Number [address] LABS documented in this encounter Visit Diagnoses Diagnosis Kidney replaced by transplant S/P kidney transplant Kidney replaced by transplant documented in this encounter Care Teams Aircrewman Relationship Specialty Start Date End Date Momo Forbes PCP - General Family Practice 01/02/14 [facility] [address] [place] [address] Ingrid Santana, RN Registered Nurse Transplant 02/10/12 10/01/15 documented as of this encounter
--- OUTSIDE RECORDS SUMMARY | 2022-03-30 18:50 | XMS_ITS | Encounter Summary ---
:1950 Author Organization [facility] [place] [address] Care Team Providers Name Role Phone Ingrid Santana RN Unavailable Momo Forbes Primary Care Provider Reason for Visit Reason Comments Transplant Donor culture results Encounter Details Date Type Department Care Team Description 02/04/2014 Documentation Only The Transplant Gladis Yeboah, Transplant (Donor 2nd Floor, Clinic 2A RN culture results) [address] [place] [id number] Social History Tobacco Use Types Packs/Day Years [...] documented as of this encounter Progress Notes Gladis Sosa RN - 02/04/2014 1:55 PM CDT Positive respiratory and urine cultures have been uploaded into [facility] [employer] [facility]. Notification sent to Dr. Rust and Dr. Hernandes. documented in this encounter Plan of Treatment Not on filedocumented as of this encounter Visit Diagnoses Not on filedocumented in this encounter Care Teams Superintendent Maintenance Relationship Specialty Start Date End Date Momo Forbes PCP - General Family Practice 01/02/14 [facility] [address] [place] [address] Ingrid Santana, RN Registered Nurse Transplant 02/10/12 10/01/15 documented as of this encounter
--- OUTSIDE RECORDS SUMMARY | 2022-03-30 18:50 | XMS_ITS | Encounter Summary ---
:1950 Author Organization [facility] Address [address] [place] [address]. [place] [address] Care Team Providers Name Role Phone Ingrid Santana RN Unavailable Momo Forbes Primary Care Provider Reason for Referral Home Health Therapies & Aides Specialty Diagnoses / Procedures Referred By Contact Refer red To Contact Adeline Diaz MD [place] [phone] Referral ID Status Reason Start Date Expiration Date Visits Requ ested Visits Authorized ome Health Therapies & Aides Specialty Diagnoses / Procedures Referred By Contact Gary phelps To Contact Adeline Diaz MD [place] [phone] Referral ID Status Reason Start Date Expiration Date Visits Requ ested Visits Authorized ome Health Therapies & Aides Specialty Diagnoses / Procedures Referred By Contact Gary phelps To Contact [facility] [address] [place] [address] [phone] Referral ID Status Reason Start Date Expiration Date Visits Requ ested Visits Authorized Reason for Visit Auth/Cert - Closed Specialty Diagnoses / Procedures Referred By Pippa phelps To Contact Med Surg Diagnoses end stage renal disease dialysis End stage renal failure on dialysis Renal Failure Uu U7a Procedures TRANSPLANT KIDNEY RECIPIENT DONOR [address] [place] [address] Phone: Referral ID Status Reason Start Date Expiration Date Visits Requ ested Visits Authorized [id number] Closed 02/04/2014 08/03/2014 1 1 Encounter Details Date Type Department Care Team Description 02/02/2014 - Hospital Encounter [facility] Susie Doyle MD [address] [place] [id number] S/P kidney transplant (Primary Dx); 02/08/2014 [facility] [address] Mathew Parker MD [address] [place] [id number] Atrial fibrillation (H) [facility] [address] [place] [address] Social History Tobacco Use Types [...] Sign Reading Time Taken Comments Blood Pressure 138/74 02/08/2014 12:01 PM CDT Pulse 86 02/08/2014 12:01 PM CDT Temperature 37.1 ??C (98.7 ??F) 02/08/2014 12:01 PM CDT Respiratory Rate 16 02/08/2014 12:01 PM CDT Oxygen Saturation 93% 02/08/2014 12:01 PM CDT Inhaled Oxygen Concentration - - Weight 126.8 kg (279 lb 9.6 02/07/2014 9:45 AM with pro thesis oz) CDT Height 182.9 cm (6') 02/02/2014 1:05 PM CDT Body Mass Index 37.92 02/02/2014 1:05 PM CDT documented in this encounter Discharge Summaries Mathew Rust MD - 02/05/2014 4:24 PM CDT Images from the original note were not included. Physician Discharge Summary Patient ID: Diego Guthrie [id number] 63 year old 1950 Admit date: 02/02/2014 Discharge date and time: 02/08/2014 Admitting Physician: Migel Merchant MD Discharge Physician: Mathew Rust Admission Diagnoses: end stage renal disease dialysis End stage renal failure on dialysis Renal Failure Discharge Diagnoses: kidney transplant recipient, immunosuppressed Admission Condition: good Discharged Condition: good Indication for Admission: recipient of donor kidney transplant Hospital Course: Patient was admitted on 02/02 to undergo a donor kidney transplant. A double J ureteral stent was placed at the time of surgery. The surgery was uncomplicated, and the kidney was making good urine after perfusion. The patient was extubated and transferred to the PACU in stablecondition. The patient's post-operative course was significant for new onset atrial fibrillation. Pt remained asymptomatic throughout the hospital course. Cardiology was consulted, pt was started on 50mg metoprolol for rate control. Atrial fibrillation persisted and pt was started on anticoagulation with high dose warfarin. Pt was also started on a heparin drip in preparation for REFUGIO and cardioversion by cardiology, he subsequently began bleeding from his incision and the heparin was held. At that time cardiology determined they would hold off on cardioversion and readdress his atrial fibrillation as an outpatient. The patient had several more bleeding episodes from the incision site, a bedside ultrasound confirmed the presence of a 17cm complex fluid collection likely to be hematoma. Hemoglobin remained stable throughout these episodes. Patient was started on coumadin at this point, which will be managed by his local physician as an outpatient. Patient received a total of 5 (100,100,75,100,75) doses of thymoglobulin along with steroid burst and taper for induction immunosuppression. He was started on MMF 1 g BID and prograf 2mg BID for maintenance immunosuppression, and his prograf level prior to discharge was 12.7(goal level 5-15). Consults: cardiology Significant Diagnostic Studies: cardiac graphics: ECG: atrial fibrillation without RVR Treatments: IV hydration, analgesia: acetaminophen and Dilaudid, cardiac meds: metoprolol and furosemide, anticoagulation: warfarin, steroids: solu-medrol, insulin: regular and Lantus and surgery: kidney transplant with kidney donor Discharge Exam: Vital signs: Heart Rate: 82, Blood pressure 149/98, pulse 82, temperature 98.4 ??F (36.9 ??C), temperature sourceOral, resp. rate 16, height 1.829 m (6'), weight 126.826 kg (279 lb 9.6 oz), SpO2 99 %. Estimated body mass index is 37.91 kg/(m^2) as calculated from the following: Height as of this encounter: 1.829 m (6'). Weight as of this encounter: 126.826 kg (279 lb 9.6 oz). Gen: no acute distress CV: irregularly irregular, normal HR, no murmur Abd: Incision edges well approximated, healing well, no signs of infection, MARGARET drain in place with serosanguinous drainage Extremities: +1 pitting edema on R side, AKA on R Neuro: A&Ox3 Disposition: home Patient Instructions: Current Discharge Medication List CONTINUE these medications which have NOT CHANGED Details VITAMIN D, CHOLECALCIFEROL, PO Take 1,000 Units by mouth daily Calcium Carbonate-Vitamin D (CALCIUM + D PO) Take 1 tablet by mouth daily (dose unknown) lisinopril (PRINIVIL,ZESTRIL) 40 MG tablet Take 40 mg by mouth daily METOPROLOL SUCCINATE PO Take 100 mg by mouth daily aspirin 81 MG tablet Take 1 tablet by mouth daily. B gzucijq-U-mfdtj acid (NEPHROCAPS) 1 MG capsule Take 1 capsule by mouth daily. LANTUS VIAL 100 UNITS/ML SC SOLN Inject 15 Units Subcutaneous every evening HumaLOG VIAL 100 UNITS/ML SOLN Inject 3-13 Units Subcutaneous 3 times daily (before meals) Patient reported his dose 10-12 unit 2-3 times daily before meals sertraline (ZOLOFT) 100 MG tablet Take 100 mg by mouth daily. zolpidem (AMBIEN) 10 MG tablet Take 10 mg by mouth nightly as needed. Activity: activity as tolerated, no heavy lifting, pushing, pulling with the implant side for 2 months and no driving while on analgesics Diet: diabetic diet Wound Care: keep wound clean and dry Follow-up with Dr. Merchant in 2 week. Signed: Adelinejo ann Diaz 02/05/2014 4:24 PM Attestation: The patient has been seen and evaluated by me. Vital signs, labs, medications and orders were reviewed. When obtained, diagnostic images were reviewed by me and interpreted as above. The care plan was discussed with the multidisciplinary team and I agree with the findings and plan in this note, with any differences recorded in blue. Immunosuppressive medication management was reviewed and adjusted as reflected in the note and orders. . documented in this encounter Discharge Instructions Discharge Phoebe Cornelius RN - 02/08/2014 10:53 AM CDT Over the next 5 days you will be seen in the [facility] ([facility]) which is located on the second floor of the [facility] next to the Transplant Clinic. Your labs will be drawn just prior to your appointment between 6:30-7:00 am. DO NOT take medications prior to having labs drawn. Please bring medications from home-you may take your medications after yourlabs are drawn. Your appointment with a nurse will last approximately 6 hours. During this time you may receive IV infusions if needed, your labs and medications will also be reviewed. Remember to bring all your medications with you to these appointments. During one of these appointments you will meetwith a chairman & chief executive officer and meet your ocean export coordinator. Your nurse will also be in communication with your surgeon and chairman & chief executive officer as needed. The direct number to the [facility] is [phone]. In the [facility] you will have access to a TV with DVD player. Snacks are available. You may bring in food from home. Family and guests are welcome to join you in your room. Once your time in the [facility] is complete you will need to have your labs drawn every Tuesday, Tuesday, and Tuesday for 3 weeks. Initially this will done by homecare. Once you are no longer being seen by homecare those labs will be drawn at a lab. Remember to always bring an updated medication list to all appointments. An AUC (lab to monitor immunosuppression) level will be drawn once your creatinine is stable for onemonth. You will follow up with transplant nephrology in clinic at 1 and 3 months and then annually. An appointment with your transplant surgeon will be scheduled for approximately 2 weeks following discharge from the hospital. This will be located in [facility] transplant surgery clinic on the second floor.Your transplant surgeon is: Dr. Merchant. You have a ureteral stent in place which needs to be removed in 4-6 weeks. If a medical scheduler does not contact you for this, please contact your ocean export coordinator. If you have modesta in place, they will be removed in 3 weeks after operation. Notify your coordinator if you have pain over your kidney, fever greater than 101.5F, or decreased urine output. Notify your coordinator immediately if you are ever unable to take your immunosuppressive medications for any reason. Copy Operator [phone] Diet recommendations post-transplant: Heart healthy dietary habits [facility] (low saturated/trans fat, low sodium). High protein diet x 8 weeks. Practice food safety precautions - no fish/seafood x 3 weeks. Discharge nurse--please fax discharge orders to [facility] and to his PCP with INR level and warfarin doses --done 6..14 bmp documented in this encounter Medications at Time [...] Units 0 SC SOLN Subcutaneous every evening aspirin 81 MG tablet Take 1 tablet by 0 02/18/2014 mouth daily. clotrimazole (MYCELEX) [address] Place 1 lozenge 70 each 0 02/0802/12/2014 MG LOZGIndications: S/P (10 mg) inside kidney transplant cheek 3 times daily metoprolol (LOPRESSOR) 25 Take 1 tablet (25 60 tablet 2 02/10/2014 MG tabletIndications: mg) by mouth 2 Atrial fibrillation (H) times daily mycophenolate Take 4 capsules 240 capsule 11 02/08/201402/10 (CELLCEPT-BRAND NAME) 250 (1,000 mg) by MG capsuleIndications: S/P mouth 2 times kidney transplant daily ondansetron (ZOFRAN) 4 MG Take 1 tablet (4 18 tablet 0 01/2102/12/2014 tabletIndications: S/P mg) by mouth every kidney transplant 6 hours as needed for nausea oxyCODONE (ROXICODONE) 5 Take 1 tablet (5 28 tablet 0 02/0802/25/2014 MG immediate release mg) by mouth every tabletIndications: S/P 4 hours as needed kidney transplant for moderate to severe pain pantoprazole (PROTONIX) 40 Take 1 tablet (40 30 tablet 1 04/05/2014 MG enteric coated mg) by mouth daily tabletIndications: S/P kidney transplant senna-docusate Take 2 tablets by 15 tablet 0 02/08/2014 (SENOKOT-S;PERICOLACE) mouth daily as 8.6-50 MG per needed for tabletIndications: S/P constipation kidney transplant sertraline (ZOLOFT) 100 MG Take 100 mg by 0 04/20/2016 tablet mouth daily. sulfamethoxazole-trimethop Take 1 tablet by 31 tablet 11 02/10/2015 rim (BACTRIM,SEPTRA) mouth daily 400-80 MG per tabletIndications: PCP prophylaxis tacrolimus (PROGRAF BRAND) Take 3 capsules 180 capsule 11 02/14/2014 0.5 MG capsuleIndications: (1.5 mg) by mouth S/P kidney transplant 2 times daily valGANciclovir (VALCYTE) Take 1 tablet (450 84 tablet 0 04/04/2014 450 MG tabletIndications: mg) by mouth daily Cytomegalovirus Disease Pharmacoprophylaxis warfarin (COUMADIN) 5 MG Take 1 tablet (5 30 tablet 0 02/0803/13/2014 tabletIndications: Atrial mg) by mouth daily fibrillation (H) zolpidem (AMBIEN) 10 MG Take 10 mg by 0 03/06/2014 tablet mouth nightly as needed Per patient on hold documented as of this encounter Progress Notes José Miguel Alvarez MD - 02/08/2014 2:04 PM CDT Patient with new onset atrial fibrillation that is rate controlled and asymptomatic, he is at higherrisk of stroke and will need a REFUGIO guided cardioversion after his INR is >2. He can be seen by any national insurance officer in the outpatient setting for coordination. Continue metoprolol 25 po bid until he is r e-evaluated. We did attempt inpatient REFUGIO guided cardioversion, but the patient developed significant bleeding while on heparin. José Miguel Alvarez M.D. Retail Sales Assistant Joseph Quintana MD - 02/08/2014 12:35 PM CDT Nephrology Progress Note 02/08/2014 Assessment & Recommendations: Mr. Guthrie is a 63 year old gentleman with a history of type 2 diabetes, hypertension, and hyperlipidemia who received a DDKT from an extended criteria donor on 02/02. Slow graft function, though creatinine is slowly declining. Kidney had severe atherosclerotic plaque, which was cleaned. Today is POD #6. 1) Graft Function - Extended criteria donor. Significant atherosclerotic plaque, which was cleaned. Kidney reperfused slowly. He had slow graft function initially, though creatinine is now declining, from 3.0 yesterday to 2.3 today. Graft US on 02/03 was without abnormality. - Monitor creatinine daily 2) Immunosuppression - Induction with thymoglobulin and methylprednisolone. ALC is 100 today. Tacrolimus level pending today. - Continue mycophenolate 1000 mg BID - Agree with dosing tacrolimus 1.5 mg BID - will watch for level 3) Prophylaxis - On valganciclovir, TMP-SMX, and clotrimazole per protocol. Both EBV and CMV are D+/R+. 4) BP/Volume - History of hypertension as an outpatient, on lisinopril 40 mg daily and metoprolol succinate 100 mg daily. Currently on metoprolol tartrate 12.5 mg BID. Pressures remain well controlled.Likely euvolemic. - Advised patient to push fluids - Continue metoprolol tartrate 12.5 mg BID - Continue to hold lisinopril 5) Anemia - Hemoglobin has dropped from 9.6 to 7.8 in the past two days with incisional bleed. He isiron replete. - Continue to monitor hemoglobin 6) Hyperphosphatemia - Phosphorus is 2.5 this morning. PTH is 362. Will monitor. Seen and discussed with Dr. Quintana. Sina Robison MD Nephrology Fellow [phone] Attestation: This patient has been seen and evaluated by me, Joseph Quintana MD. I have reviewed the note and agree with plan of care as documented by the fellow. Interval History : Mr. Guthrie feels well this morning. Still with incisional pain, but it's controlled. Ready to go home. Ambulating well, not short of breath. Kidney function continues to improve. Review of Systems: A 10-point review of systems was obtained and was negative except for the pertinent positives and negatives listed in the HPI. Physical Exam: BP 138/74 Pulse 86 Temp(Src) 98.7 ??F (37.1 ??C) (Oral) Resp 16 Ht 1.829 m (6') Wt 126.826kg (279 lb 9.6 oz) BMI 37.91 kg/m2 SpO2 93% I/O last 3 completed shifts: In: 1820 [P.O.:1800; I.V.:20] Out: 1950 [Urine:1750; Drains:200] Gen - Alert, oriented, NAD. Neck - No LAD or thyromegaly. CV - RRR, no M/R/G. Lungs - Equal air entry bilaterally. Lungs are clear. Abdomen - Soft, nondistended. + Bowel sounds. Slight tenderness over graft incision. MARGARET drain in place. Extremities - Left BKA. Right leg with no edema. Skin - No rashes or petechiae. Neuro - Alert, nonfocal exam. Labs: CMP Recent Labs Lab 02/08/14 0642 02/07/14 0423 02/06/14 0557 02/05/14 0702 02/02/14 1407 NA 144 143 142 143 < > 141 POTASSIUM 3.9 4.1 4.7 4.3 < > 4.2 CHLORIDE 110* 109 106 107 < > 101 CO2 25 24 28 25 < > 26 ANIONGAP 8 10 8 10 < > 13 GLC 144* 185* 196* 123* < > 112* BUN 66* 77* 71* 66* < > 42* CR 2.38* 3.02* 3.96* 4.77* < > 6.03* GFRESTIMATED 28* 21* 15* 12* < > 9* GFRESTBLACK 34* 26* 19* 15* < > 11* ENEDINA 9.4 9.3 9.4 9.4 < > 9.9 MAG 2.2 2.1 1.9 2.0 < > -- PHOS 2.5 3.5 4.5 5.7* < > -- PROTTOTAL -- -- -- -- -- 7.5 ALBUMIN -- -- -- -- -- 4.2 BILITOTAL -- -- -- -- -- 0.7 ALKPHOS -- -- -- -- -- 88 AST -- -- -- -- -- 18 ALT -- -- -- -- -- 33 < > = values in this interval not displayed. CBC Recent Labs Lab 02/08/1464102/07/1442202/06/14 1659 02/06/14 0557 02/05/14 1204 HGB 7.8* 8.5* 8.8* 9.6* < > 10.3* WBC 4.8 2.7* -- 5.1 -- 7.4 RBC 2.56* 2.80* -- 3.13* -- 3.31* HCT 23.5* 25.8* -- 29.0* -- 31.0* MCV 92 92 -- 93 -- 94 MCH 30.5 30.4 -- 30.7 -- 31.1 MCHC 33.2 32.9 -- 33.1 -- 33.2 RDW 14.5 14.5 -- 14.5 -- 14.7 PLT 70* 77* -- 85* -- 91* < > = values in this interval not displayed. INR Recent Labs Lab 02/08/1464102/07/1442202/06/14 0557 02/05/14 1204 INR 1.28* 1.25* 1.32* 1.24* PTT -- -- 154* -- ABG Recent Labs Lab 02/02/1402/02/14 1840 O2PER 45 100% URINE STUDIES Recent Labs Lab Test 02/02/14 1400 02/08/12 0706 COLOR Light Yellow Light Yellow APPEARANCE Clear Clear URINEGLC 70* 300* URINEBILI Negative Negative URINEKETONE Negative Negative SG 1.008 1.010 UBLD Negative Negative URINEPH 8.0* 7.5* PROTEIN 100* 300* NITRITE Negative Negative LEUKEST Negative Negative RBCU 0 <1 WBCU 1 1 Recent Labs Lab Test 02/02/14 1400 UTPG 2.15* PTH Recent Labs Lab Test 02/05/14 0702 PTHI 362* IRON STUDIES Recent Labs Lab Test 02/05/14 0702 IRON 119 FEB 207* IRONSAT 58* THEE 932* Imaging: All imaging studies reviewed by me. Current Medications: ??? warfarin 5 mg Oral ONCE at 18:00 ??? valGANciclovir 450 mg Oral Daily ??? sulfamethoxazole-trimethoprim 1 tablet Oral Daily ??? polyethylene glycol 17 g Oral Daily ??? insulin aspart 1-7 Units Subcutaneous TID AC ??? insulin aspart 1-5 Units Subcutaneous At Bedtime ??? tacrolimus 1.5 mg Oral BID IS ??? insulin glargine 15 Units Subcutaneous At Bedtime ? ? insulin aspart Subcutaneous 4x Daily AC & HS ??? metoprolol 25 mg Oral BID ??? sodium chloride (PF) 10 mL Intravenous Q8H ??? clotrimazole 10 mg Buccal TID ??? pantoprazole 40 mg Oral Daily ??? mycophenolate 1,000 mg Oral BID IS ??? senna-docusate 2 tablet Oral BID ??? sertraline 100 mg Oral Daily ??? Warfarin Therapy Reminder ??? Reason anticoagulant not prescribed for atrial fibrillation ??? IV fluid REPLACEMENT ONLY Phoebe Ramires RN - 02/07/2014 2:25 PM CDT Pump Stitcher D: Diego Guthrie 63 year old male POD #5 s/p DDKT for ESRD 2/[address] Diaz note today. Per Dr Diaz, pt will most likely be ready for d/c to home tomorrow and will return to [facility] for 5 days at 0700. Pt will need warfarin for new a fib and will follow with cardiology( Dr Jaylene Butler) as Op for possible cardioversion when he is theraputic on the warfarin. I: I met with the pt, in his room and he is pleasant and when going over d/c plans, he does not knowif he will stay locally or go home and drive. Pt will have s.o., Zhanna with him. Pt does not know where the [facility] or transplant clinic is, I told him and he replied I will find it. Pt does not care which [facility] agency will follow him--There are only 2 to choose from, so I chose the [facility] [phone]/ --I called and left a message with Estrella Fletcher and I fax'd his records tothem--pt will need start of care approx Thursday 02/15. Pt is new on warfarin and I called his PCP's office and they have INR nurses Tuesday-Tuesday their fax # is [phone] (when N visits are completed --pt will call main clinic # to schedule INR draws). 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 I verified his address and phone #(is his cell) on the facesheet. Pt has not met his OP nurse wound care: Leandro Kahn, yet--I sent Leandro an in basket message today-with plan. A: possible d/c to home Tuesday P: see above-will follow and will call [facility] to confirm they can accept him. Joseph Quintana MD - 02/07/2014 1:12 PM CDT Nephrology Progress Note 02/07/2014 Assessment & Recommendations: Mr. Guthrie is a 63 year old gentleman with a history of type 2 diabetes, hypertension, and hyperlipidemia who received a DDKT from an extended criteria donor on 02/02. Slow graft function, though creatinine is slowly declining. Kidney had severe atherosclerotic plaque, which was cleaned. Today is POD #5. 1) Graft Function - Extended criteria donor. Significant atherosclerotic plaque, which was cleaned. Kidney reperfused slowly. He had slow graft function initially, though creatinine is now declining, from 3.9 yesterday to 3.0 today. Graft US on 02/03 was without abnormality. - Monitor creatinine daily 2) Immunosuppression - Induction with thymoglobulin and methylprednisolone. ALC is 100 today. Tacrolimus level yesterday was 12.7. - Continue mycophenolate 1000 mg BID - Agree with dosing tacrolimus 1.5 mg BID 3) Prophylaxis - On valganciclovir, TMP-SMX, and clotrimazole per protocol. Both EBV and CMV are D+/R+. 4) BP/Volume - History of hypertension as an outpatient, on lisinopril 40 mg daily and metoprolol succinate 100 mg daily. Currently on metoprolol tartrate 12.5 mg BID. Pressures remain well controlled.Likely euvolemic. States EDW on HD was 133 kg, currently 129 kg. Continues to be orthostatic at times - Advised patient to push fluids - may need IVF if he cannot do this - Continue metoprolol tartrate 12.5 mg BID - Continue to hold lisinopril 5) Anemia - Hemoglobin dropped from 9.6 to 8.5 with incisional bleed. He is iron replete. - Recommend re-checking hemoglobin this afternoon 6) Hyperphosphatemia - Phosphorus is 3.5 this morning. PTH is 362. Will monitor. Seen and discussed with Dr. Quintana. Sina Robison MD Nephrology Fellow [phone] Attestation: This patient has been seen and evaluated by me, Joseph Quintana MD. I have reviewed the note and agree with plan of care as documented by the fellow. Interval History : Mr. Guthrie feels OK this morning. Continued to have incisional bleeding last night. Some pain at theincision, but not severe. No shortness of breath. He's ambulating with PT. Review of Systems: A 10-point review of systems was obtained and was negative except for the pertinent positives and negatives listed in the HPI. Physical Exam: BP 134/83 Pulse 85 Temp(Src) 98.4 ??F (36.9 ??C) (Oral) Resp 16 Ht 1.829 m (6') Wt 126.826kg (279 lb 9.6 oz) BMI 37.91 kg/m2 SpO2 97% I/O last 3 completed shifts: In: 220 [P.O.:180; I.V.:40] Out: 1733 [Urine:1645; Drains:88] Gen - Alert, oriented, NAD. Neck - No LAD or thyromegaly. CV - RRR, no M/R/G. Lungs - Equal air entry bilaterally. Lungs are clear. Abdomen - Soft, nondistended. + Bowel sounds. Slight tenderness over graft incision. MARGARET drain in place. Extremities - Left BKA. Right leg with no edema. Skin - No rashes or petechiae. Neuro - Alert, nonfocal exam. Labs: CMP Recent Labs Lab 02/07/14 0423 02/06/14 0557 02/05/14 0702 02/04/14 0549 02/02/14 1407 NA 143 142 143 142 < > 141 POTASSIUM 4.1 4.7 4.3 4.9 < > 4.2 CHLORIDE 109 106 107 107 < > 101 CO2 24 28 25 23 < > 26 ANIONGAP 10 8 10 12 < > 13 GLC 185* 196* 123* 151* < > 112* BUN 77* 71* 66* 57* < > 42* CR 3.02* 3.96* 4.77* 5.94* < > 6.03* GFRESTIMATED 21* 15* 12* 10* < > 9* GFRESTBLACK 26* 19* 15* 12* < > 11* ENEDINA 9.3 9.4 9.4 9.4 < > 9.9 MAG 2.1 1.9 2.0 2.1 < > -- PHOS 3.5 4.5 5.7* 6.3* < > -- PROTTOTAL -- -- -- -- -- 7.5 ALBUMIN -- -- -- -- -- 4.2 BILITOTAL -- -- -- -- -- 0.7 ALKPHOS -- -- -- -- -- 88 AST -- -- -- -- -- 18 ALT -- -- -- -- -- 33 < > = values in this interval not displayed. CBC Recent Labs Lab 02/07/14 0423 02/06/14 1659 02/06/14 0557 02/06/14 0102 02/05/14 1204 02/05/14 0702 HGB 8.5* 8.8* 9.6* 10.2* 10.3* 9.7* WBC 2.7* -- 5.1 -- 7.4 8.9 RBC 2.80* -- 3.13* -- 3.31* 3.20* HCT 25.8* -- 29.0* -- 31.0* 30.0* MCV 92 -- 93 -- 94 94 MCH 30.4 -- 30.7 -- 31.1 30.3 MCHC 32.9 -- 33.1 -- 33.2 32.3 RDW 14.5 -- 14.5 -- 14.7 14.6 PLT 77* -- 85* -- 91* 96* INR Recent Labs Lab 02/07/14 0423 02/06/14 0557 02/05/14 1204 INR 1.25* 1.32* 1.24* PTT -- 154* -- ABG Recent Labs Lab 02/02/14 2209 02/02/14 1840 O2PER 45 100% URINE STUDIES Recent Labs Lab Test 02/02/14 1400 02/08/12 0706 COLOR Light Yellow Light Yellow APPEARANCE Clear Clear URINEGLC 70* 300* URINEBILI Negative Negative URINEKETONE Negative Negative SG 1.008 1.010 UBLD Negative Negative URINEPH 8.0* 7.5* PROTEIN 100* 300* NITRITE Negative Negative LEUKEST Negative Negative RBCU 0 <1 WBCU 1 1 Recent Labs Lab Test 02/02/14 1400 UTPG 2.15* PTH Recent Labs Lab Test 02/05/14 0702 PTHI 362* IRON STUDIES Recent Labs Lab Test 02/05/14 0702 IRON 119 FEB 207* IRONSAT 58* THEE 932* Imaging: All imaging studies reviewed by me. Current Medications: ??? warfarin 5 mg Oral ONCE at 18:00 ??? valGANciclovir 450 mg Oral Daily ??? sulfamethoxazole-trimethoprim 1 tablet Oral Daily ??? polyethylene glycol 17 g Oral Daily ??? insulin aspart 1-7 Units Subcutaneous TID AC ??? insulin aspart 1-5 Units Subcutaneous At Bedtime ??? tacrolimus 1.5 mg Oral BID IS ??? insulin glargine 15 Units Subcutaneous At Bedtime ? ? insulin aspart Subcutaneous 4x Daily AC & HS ??? metoprolol 25 mg Oral BID ??? sodium chloride (PF) 10 mL Intravenous Q8H ??? clotrimazole 10 mg Buccal TID ??? pantoprazole 40 mg Oral Daily ??? mycophenolate 1,000 mg Oral BID IS ??? senna-docusate 2 tablet Oral BID ??? sertraline 100 mg Oral Daily ??? Warfarin Therapy Reminder ??? Reason anticoagulant not prescribed for atrial fibrillation ??? IV fluid REPLACEMENT ONLY Mathew Rust MD - 02/07/2014 10:58 AM CDT Images from the original note were not included. 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 Pt is doing well, with good UOP, and adequate pain control. Pt has had 2 episodes of bleeding from incision site, with some swelling below incision. Ordered ultrasound to evaluate hematoma vs. Dehiscence. Graft function:good, stable. Immunosuppression management: No change has received 5 doses thymo prograf 2mg BID (last level 12.7). Complexity of management:Medium. Contributing factors: organ dysfunction Hematology: Hgb stable at 8.5, down from 9.6 likely 2/2 bleeding episodes. Will restart warfin today, will have INR checked in [facility] as OP Cardiorespiratory: Stable. Persistent afib, will arrange follow up with Cardiology for cardioversionas an OP GI/Nutrition: Diabetic diet Endocrine: SubQ insulin with modified carb counting Fluid/Electrolytes: MIVF:discontinued : Gibbs discontinued. Pt urinating independently Infectious disease: No evidence of infection Prophylaxis: DVT-SCD's,GI-protonix, fungal-mycellex, PCP-Bactrim, CMV D(+)/R(+), valcyte 12 weeks Disposition: d/c today or tomorrow, pending U/S results and need for rehab vs home with assistance Medical Decision Making: Medium Subsequent visit 25260 (moderate level decision making) PATO/Fellow/Resident Provider: Adeline Diaz Faculty: Mathew Rust M.D. Transplant History: Admitted 02/02/2014 for kidney transplant with donor kidney. 02/02/2014 (Kidney), Postoperative day: 5 Interval History: History is obtained from the patient Overnight events: Pt had another episode of bleeding from his incision overnight. Pt was re-evaluated at that time, found to be hemodynamically stable, and without evidence of active bleeding. Pt reports adequate pain control. ROS: A 10-point review of systems was negative except as noted above. Meds: ??? warfarin 5 mg Oral ONCE at 18:00 ??? furosemide 20 mg Intravenous Once ??? polyethylene glycol 17 g Oral Daily ??? valGANciclovir 450 mg Oral Every Other Day ??? insulin aspart 1-7 Units Subcutaneous TID AC ??? insulin aspart 1-5 Units Subcutaneous At Bedtime ??? tacrolimus 1.5 mg Oral BID IS ??? insulin glargine 15 Units Subcutaneous At Bedtime ? ? insulin aspart Subcutaneous 4x Daily AC & HS ??? sulfamethoxazole-trimethoprim 1 tablet Oral User Specified ??? metoprolol 25 mg Oral BID ??? sodium chloride (PF) 10 mL Intravenous Q8H ??? clotrimazole 10 mg Buccal TID ??? pantoprazole 40 mg Oral Daily ??? mycophenolate 1,000 mg Oral BID IS ??? senna-docusate 2 tablet Oral BID ??? insulin aspart Subcutaneous QAM AC ??? insulin aspart Subcutaneous Daily with lunch ??? insulin aspart Subcutaneous Daily with supper ??? sertraline 100 mg Oral Daily Physical Exam: Admit Weight: 124.603 kg (274 lb 11.2 oz) (With prosthesis) Current vitals: BP 150/86 Pulse 90 Temp(Src) 97.8 ??F (36.6 ??C) (Oral) Resp 16 Ht 1.829 m (6') Wt 126.826kg (279 lb 9.6 oz) BMI 37.91 kg/m2 SpO2 100% CVP (mmHg): 8 mmHg Vital sign ranges: Temp: [97.4 ??F (36.3 ??C)-98.2 ??F (36.8 ??C)] 97.8 ??F (36.6 ??C) Pulse: [82-96] 90 Heart Rate: [67-102] 102 Resp: [16-20] 16 BP: (94-150)/(65-90) 150/86 mmHg SpO2: [95 %-100 %] 100 % Patient Vitals for the past 24 hrs: BP Temp Temp src Pulse Heart Rate Resp SpO2 Weight 02/07/14 1001 150/86 mmHg - - 90 - - 100 % - 02/07/14 0949 134/84 mmHg - - 96 - - 99 % - 02/07/14 0945 - - - - - - - 126.826 kg (279 lb 9.6 oz) 02/07/14 0725 147/90 mmHg 97.8 ??F (36.6 ??C) Oral 82 - 16 95 % - 02/07/14 0345 142/88 mmHg 98.2 ??F (36.8 ??C) Oral - 102 18 98 % - 02/06/14 2254 119/76 mmHg 98.1 ??F (36.7 ??C) Oral - 82 18 99 % - 02/06/14 2034 127/81 mmHg 97.4 ??F (36.3 ??C) Oral - 82 20 98 % - 02/06/14 1600 135/76 mmHg 97.4 ??F (36.3 ??C) Oral - 67 16 97 % - 02/06/14 1445 118/87 mmHg - - - - 16 96 % - 02/06/14 1210 94/65 mmHg - - - - - - - 02/06/14 1209 127/79 mmHg 97.7 ??F (36.5 ??C) Axillary - 71 16 97 % - General Appearance: in no apparent distress. Skin: normal Heart: irregularly irregular rhythm Lungs: clear to auscultation, without wheezes, without crackles Abdomen: The abdomen is obese, and mildly tender, RLQ. he is tender over the kidney graft. The woundis Healing well, well approximated and drainage. : gibbs is not present. The genitalia is not edematous. Urine has small gross hematuria. Extremities: edema: present bilaterally. 1+ Neurologic: awake, alert and oriented. Tremor absent.. Data: CMP Recent Labs Lab 02/07/14 0423 02/06/14 0557 02/02/14 2209 02/02/14 1840 02/02/14 1407 NA 143 142 < > 137 141 141 POTASSIUM 4.1 4.7 < > 4.4 3.7 4.2 CHLORIDE 109 106 < > -- -- 101 CO2 24 28 < > -- -- 26 GLC 185* 196* < > 116* 76 112* BUN 77* 71* < > -- -- 42* CR 3.02* 3.96* < > -- -- 6.03* GFRESTIMATED 21* 15* < > -- -- 9* GFRESTBLACK 26* 19* < > -- -- 11* ENEDINA 9.3 9.4 < > -- -- 9.9 ICAW -- -- -- 4.8 4.8 -- MAG 2.1 1.9 < > -- -- -- PHOS 3.5 4.5 < > -- -- -- ALBUMIN -- -- -- -- -- 4.2 BILITOTAL -- -- -- -- -- 0.7 ALKPHOS -- -- -- -- -- 88 AST -- -- -- -- -- 18 ALT -- -- -- -- -- 33 < > = values in this interval not displayed. CBC Recent Labs Lab 02/07/14 0423 02/06/14 1659 02/06/14 0557 HGB 8.5* 8.8* 9.6* WBC 2.7* -- 5.1 PLT 77* -- 85* A1C 6.1* -- -- COAGS Recent Labs Lab 02/07/14 0423 02/06/14 0557 INR 1.25* 1.32* PTT -- 154* Urinalysis Recent Labs Lab Test 02/02/14 1400 02/08/12 0706 COLOR Light Yellow Light Yellow APPEARANCE Clear Clear URINEGLC 70* 300* URINEBILI Negative Negative URINEKETONE Negative Negative SG 1.008 1.010 UBLD Negative Negative URINEPH 8.0* 7.5* PROTEIN 100* 300* NITRITE Negative Negative LEUKEST Negative Negative RBCU 0 <1 WBCU 1 1 UTPG 2.15* -- Virology: CMV IgG Antibody Date Value Range Status 02/08/2012 3.30 Final Positive for anti-CMV IgG EBV VCA IgG Antibody Date Value Range Status 02/08/2012 188.00 Final Positive, suggests immunologic exposure. Hepatitis C Antibody Date Value Range Status 02/02/2014 Negative NEG Final Hep B Surface Shaye Date Value Range Status 02/08/2012 135.0 Final Positive, Patient is considered to be immune to infection with hepatitis B when the value is greater than or equal to 12.0 mlU/mL. Addendum: U/S of swelling beneath incision shows 17cm complex fluid collection, likely to be hematoma or seroma. Collection in superficial. Not concerning for dehiscence. Attestation: The patient has been seen and evaluated by me. Vital signs, labs, medications and orders were reviewed. When obtained, diagnostic images were reviewed by me and interpreted as above. The care plan was discussed with the multidisciplinary team and I agree with the findings and plan in this note, with any differences recorded in blue. Immunosuppressive medication management was reviewed and adjusted as reflected in the note and orders. . Indu Calixto MD - 02/07/2014 4:20 AM CDT 02/07/2014 Cross Cover Note Notified by nurse that patient's incision was leaking. Went to evaluate patient at bedside. Patient had gone to the bathroom, and noted minimal light headedness. Vital signs were stable. Patient reports that he woke up and his gown and bed were saturated in blood. Visualized incision, which may have asmall hematoma on upper edge. No obvious defects. Incision was cleaned and without further bleeding.Nurse applied pressure bandaged. Ordered stat H&H. Will follow up results and reevaluate pt. Indu Calixto, PGY1 Joseph Rodriguez MD - 02/06/2014 4:25 PM CDT [facility] Cardiology Progress Note I have seen and examined the patient and reviewed labs, imaging tests, and ecgs. I have discussed my findings and treatment recommendations with the housestaff and agree with their assessment and enid outlined in their note. Anticoagulation should be started when it is safe to do so from a surgical standpoint because of the risk of stroke. Since he is asymptomatic and his vent rate is well controlled, cardioversion can be deferred for a few weeks without ill effect. Joseph Rodriguez MD Assessment and Recommendation: Assessment: 63 yo man with a history of end stage renal disease s/p donor transplant, HTN, and Type 2 DM who developed atrial fibrillation in the post- operative period. He continues to be in atrial fibrillation by telemetry, but remains asymptomatic. Paroxysmal atrial fibrillation is quite likely in this patient with known LA enlargement and grade II diastolic dysfunction by echocardiogram two years ago(atria could not be visualized on TTE during this hospitalization, but LV function appears normal and LVEF 55-60%). Unable to perform cardioversion today as patient's heparin was stopped due to surgical incision bleeding overnight, will need to delay REFUGIO/potiential cardioversion until patient's INR istherapeutic on warfarin. Recommendations: -- Continue warfarin, ok to not bridge with heparin for atrial fibrillation -- Will plan for REFUGIO and possible cardioversion once INR is therapeutic on warfarin, can be done during this hospitalization if his INR is therapeutic prior to discharge, otherwise if patient discharges before INR is therapeutic, can be seen in follow-up for REFUGIO and possible cardioversion at that timeif he continues to be in atrial fibrillation. We will tentatively arrange for follow- up within the next week. -- can continue metoprolol on discharge until seen in follow-up Cardiology will sign off for now, but please do not hesitate to page with questions. Patient was seen and plan discussed with Dr. Rodriguez, cardiology attending, who is in agreement. Yudi Garcia MD Internal Medicine-Pediatrics R3 Interval History: Early this AM, did develop some bleeding from his incisional site. PTT was supratherapeutic and heparin gtt stopped. Otherwise, no shortness of breath or chest pain. No other complaints at this time. Medications: Current medications reviewed in EMR. Physical Exam (Resident / Clinician): Vitals were reviewed Blood pressure 135/76, pulse 77, temperature 97.4 ??F (36.3 ??C), temperature source Oral, resp. rate 16, height 1.829 m (6'), weight 127.415 kg (280 lb 14.4 oz), SpO2 97 %. Room air. Gen: seated comfortably in bed in NAD and conversant. HEENT: NCAT, EOMI, sclera anicteric, oropharynx clear Neck: supple, JVD mildly elevated Chest: breathing unlabored on room air, lungs CTAB without crackles or wheezes CV: irregularly irregular, no appreciable murmurs/rubs/gallops Abd: obese, soft, NT, ND, normoactive bowel sounds Ext: warm, trace edema Neuro: AAOx3, otherwise non-focal Data: BMP notable for K 4.3, Mg 2.0, BUN 66, Cr 4.77 Hgb 9.6 INR 1.3 Joseph Quintana MD - 02/06/2014 2:57 PM CDT Nephrology Progress Note 02/06/2014 Assessment & Recommendations: Mr. Guthrie is a 63 year old gentleman with a history of type 2 diabetes, hypertension, and hyperlipidemia who received a DDKT from an extended criteria donor on 02/02. Slow graft function, though creatinine is slowly declining. Kidney had severe atherosclerotic plaque, which was cleaned. Today is POD #4. 1) Graft Function - Extended criteria donor. Significant atherosclerotic plaque, which was cleaned. Kidney reperfused slowly. He had slow graft function initially, though creatinine is now declining, from 4.7 yesterday to 3.9 today. Graft US on 02/03 was without abnormality. - Monitor creatinine daily 2) Immunosuppression - Induction with thymoglobulin and methylprednisolone. ALC is 300 today. - Continue thymoglobulin and methylprednisolone - agree with reduced dose thymo today (75 mg) - Continue mycophenolate 1000 mg BID - Tacrolimus started AM of 02/04 - level pending today 3) Prophylaxis - On valganciclovir, TMP-SMX, and clotrimazole per protocol. Both EBV and CMV are D+/R+. 4) BP/Volume - History of hypertension as an outpatient, on lisinopril 40 mg daily and metoprolol succinate 100 mg daily. Currently on metoprolol tartrate 12.5 mg BID. Pressures remain well controlled.Likely euvolemic. States EDW on HD was 133 kg, currently 129 kg, some dizziness today. - Would check orthostatics today - Advised patient to push fluids - may need IVF if he cannot do this - Continue metoprolol tartrate 12.5 mg BID - Continue to hold lisinopril 5) Anemia - Hemoglobin stable around 9.5. He is iron replete. - Monitor hemoglobin daily 6) Hyperphosphatemia - Phosphorus is 4.5 this morning. PTH is 362. Should improve as creatinine drops. Seen and discussed with Dr. Quintana. Sina Robison MD Nephrology Fellow [phone] Attestation: This patient has been seen and evaluated by me, Joseph Quintana MD. I have reviewed the note and agree with plan of care as documented by the fellow. Interval History : Mr. Guthrie was supposed to receive cardioversion today, but heparin was turned off last night due tobleeding. Will likely have now as an outpatient when INR is therapeutic. He does not feel all that well today, quite tired, still with pain over incision. No fevers, no shortness of breath. Review of Systems: A 10-point review of systems was obtained and was negative except for the pertinent positives and negatives listed in the HPI. Physical Exam: BP 118/87 Pulse 77 Temp(Src) 97.7 ??F (36.5 ??C) (Axillary) Resp 16 Ht 1.829 m (6') Wt 127.415 kg (280 lb 14.4 oz) BMI 38.09 kg/m2 SpO2 96% I/O last 3 completed shifts: In: 1061.75 [P.O.:440; I.V.:326.75; IV Piggyback:295] Out: 3110 [Urine:2900; Drains:210] Gen - Alert, oriented, NAD. Neck - No LAD or thyromegaly. CV - RRR, no M/R/G. Lungs - Equal air entry bilaterally. Lungs are clear. Abdomen - Soft, nondistended. + Bowel sounds. Slight tenderness over graft incision. MARGARET drain in place. Extremities - Left BKA. Right leg with no edema. Skin - No rashes or petechiae. Neuro - Alert, nonfocal exam. Labs: CMP Recent Labs Lab 02/06/14 0557 02/05/14 0702 02/04/14 0549 02/03/14 2216 02/03/14 0538 02/02/14 1407 NA 142 143 142 -- -- 141 < > 141 POTASSIUM 4.7 4.3 4.9 4.8 < > 4.4 < > 4.2 CHLORIDE 106 107 107 -- -- 105 < > 101 CO2 28 25 23 -- -- 20 < > 26 ANIONGAP 8 10 12 -- -- 15 < > 13 GLC 196* 123* 151* -- -- 170* < > 112* BUN 71* 66* 57* -- -- 49* < > 42* CR 3.96* 4.77* 5.94* -- -- 6.38* < > 6.03* GFRESTIMATED 15* 12* 10* -- -- 9* < > 9* GFRESTBLACK 19* 15* 12* -- -- 11* < > 11* ENEDINA 9.4 9.4 9.4 -- -- 9.1 < > 9.9 MAG 1.9 2.0 2.1 -- -- 2.0 < > -- PHOS 4.5 5.7* 6.3* -- -- 4.7* < > -- PROTTOTAL -- -- -- -- -- -- -- 7.5 ALBUMIN -- -- -- -- -- -- -- 4.2 BILITOTAL -- -- -- -- -- -- -- 0.7 ALKPHOS -- -- -- -- -- -- -- 88 AST -- -- -- -- -- -- -- 18 ALT -- -- -- -- -- -- -- 33 < > = values in this interval not displayed. CBC Recent Labs Lab 02/06/14 0557 02/06/14 0102 02/05/14 1204 02/05/14 0702 02/04/14 0549 HGB 9.6* 10.2* 10.3* 9.7* 9.5* WBC 5.1 -- 7.4 8.9 13.8* RBC 3.13* -- 3.31* 3.20* 3.10* HCT 29.0* -- 31.0* 30.0* 28.7* MCV 93 -- 94 94 93 MCH 30.7 -- 31.1 30.3 30.6 MCHC 33.1 -- 33.2 32.3 33.1 RDW 14.5 -- 14.7 14.6 14.6 PLT 85* -- 91* 96* 91* INR Recent Labs Lab 02/06/14 0557 02/05/14 1204 INR 1.32* 1.24* PTT 154* -- ABG Recent Labs Lab 02/02/14 2209 02/02/14 1840 O2PER 45 100% URINE STUDIES Recent Labs Lab Test 02/02/14 1400 02/08/12 0706 COLOR Light Yellow Light Yellow APPEARANCE Clear Clear URINEGLC 70* 300* URINEBILI Negative Negative URINEKETONE Negative Negative SG 1.008 1.010 UBLD Negative Negative URINEPH 8.0* 7.5* PROTEIN 100* 300* NITRITE Negative Negative LEUKEST Negative Negative RBCU 0 <1 WBCU 1 1 Recent Labs Lab Test 02/02/14 1400 UTPG 2.15* PTH Recent Labs Lab Test 02/05/14 0702 PTHI 362* IRON STUDIES Recent Labs Lab Test 02/05/14 0702 IRON 119 FEB 207* IRONSAT 58* THEE 932* Imaging: All imaging studies reviewed by me. Current Medications: ??? polyethylene glycol 17 g Oral Daily ??? valGANciclovir 450 mg Oral Every Other Day ??? predniSONE 30 mg Oral Daily ??? magnesium oxide 400 mg Oral BID ??? insulin aspart 1-7 Units Subcutaneous TID AC ??? insulin aspart 1-5 Units Subcutaneous At Bedtime ??? warfarin 5 mg Oral ONCE at 18:00 ??? insulin glargine 15 Units Subcutaneous At Bedtime ? ? insulin aspart Subcutaneous 4x Daily AC & HS ??? tacrolimus 2 mg Oral BID IS ??? sulfamethoxazole-trimethoprim 1 tablet Oral User Specified ??? metoprolol 25 mg Oral BID ??? sodium chloride (PF) 10 mL Intravenous Q8H ??? clotrimazole 10 mg Buccal TID ??? pantoprazole 40 mg Oral Daily ??? mycophenolate 1,000 mg Oral BID IS ??? senna-docusate 2 tablet Oral BID ??? insulin aspart Subcutaneous QAM AC ??? insulin aspart Subcutaneous Daily with lunch ??? insulin aspart Subcutaneous Daily with supper ??? sertraline 100 mg Oral Daily ??? Warfarin Therapy Reminder ??? Reason anticoagulant not prescribed for atrial fibrillation ??? IV fluid REPLACEMENT ONLY Mathew Rust MD - 02/06/2014 8:39 AM CDT Images from the original note were not included. Transplant Surgery Inpatient Daily Progress Note 02/06/2014 Assessment & Plan: Diego Guthrie 63 year old male s/p DDKT on 02/02 for ESRD 2/2 T2DM. Goodinitial function of kidney graft. No Found to be in atrial fibrillation on POD2. Graft function:good, improved. Cr 4.8<-5.94 <- 6.38; Good Uop at ~3350ml yesterday. 1055m o/n. Immunosuppression management: Thymo 50 mg (half dose due to PLT < 90) and Prednisone 0.25 mg/kg today. Total thymoglobulin given thus far including today: 450mg, 3.6 mg/kg. Prograf 2mg BID, started 02/04. Level in process. Complexity of management:Medium. Contributing factors: organ dysfunction Hematology: Hgb stable at 9.6, ALC 0.3, PLT 85. Bleeding at incision, incisional hematoma. Hold anticoagulation today, will reevaluate. See below. Cardiorespiratory: New onset afib found incidentally on EKG. Pt is asymptomatic. Stable BP. Metoprolol increased to 50mg BID. Patient remains in afib, rate controlled. Cardiology consulted. Cardio conversion cancelled due to bleeding and disruption of anticoagulation. Will schedule cardio conversion once patient at goal INR 2-3. Do not need to bridge with Heparin. Will continue with warfarin tonight vs tomorrow depending on if bleeding from incision today. GI/Nutrition: Regular diet. NPO after midnight for cardio conversion tomorrow. Endocrine: Lantus 15 units q HS. Novolog CC 1 unit/15 grams carbs. Novolog medium correction scale. FBG 196. Adjust insulin as needed. Fluid/Electrolytes: MIVF: discontinued. Lasix stopped yesterday AM. Electrolytes K 4.7 and Mg 1.9. Will give magnesium 400 mg BID today. : Remove gibbs this afternoon. Monitor for urinary retention. Ureteral stent, will need to be removed in ~6 weeks. Infectious disease: Afebrile, WBC 5.1, stable Prophylaxis: DVT-SCDs, heparin, GI- protonix , PCP- bactrim. CMV D(+)/R(+), EBV D+/R+, Valcyte 12 weeks Disposition: Transferred to . Possible d/c tomorrow vs Tuesday depending on status of incisional bleeding/hematoma. Medical Decision Making:medium PATO/Fellow/Resident Provider: ANTONIO Smith Faculty: [facility] Transplant History: Admitted 02/02/2014 for kidney transplant. 02/02/2014 (Kidney), Postoperative day: 4 Interval History: History obtained from pt Overnight events: Bleeding from incision, bright red blood on hospital gown. Pressure dressing applied this morning. On recheck, dressing with scant blood. Small hematoma, upper incision. Pain controlled. Bladder scan this AM, 150 cc. Patient c/o of not being able to use urinal/urniate in supine position. Difficulty with getting the the bathroom due to BKA and needing to put on prothesis. ROS: A 10-point review of systems was negative except as noted above. Meds: ??? polyethylene glycol 17 g Oral Daily ??? insulin aspart 1-7 Units Subcutaneous Q4H ??? valGANciclovir 450 mg Oral Every Other Day ??? acetaminophen 650 mg Oral Once ??? diphenhydrAMINE 25-50 mg Oral Once Or ??? diphenhydrAMINE 25-50 mg Intravenous Once ??? anti-thymocyte globulin 75 mg Intravenous Central line Once ??? predniSONE 30 mg Oral Daily ??? insulin glargine 15 Units Subcutaneous At Bedtime ? ? insulin aspart Subcutaneous 4x Daily AC & HS ??? tacrolimus 2 mg Oral BID IS ??? sulfamethoxazole-trimethoprim 1 tablet Oral User Specified ??? metoprolol 25 mg Oral BID ??? sodium chloride (PF) 10 mL Intravenous Q8H ??? clotrimazole 10 mg Buccal TID ??? pantoprazole 40 mg Oral Daily ??? mycophenolate 1,000 mg Oral BID IS ??? senna-docusate 2 tablet Oral BID ??? insulin aspart Subcutaneous QAM AC ??? insulin aspart Subcutaneous Daily with lunch ??? insulin aspart Subcutaneous Daily with supper ??? sertraline 100 mg Oral Daily Physical Exam: Admit Weight: 124.603 kg (274 lb 11.2 oz) (With prosthesis) Current vitals: BP 144/90 Pulse 76 Temp(Src) 97.9 ??F (36.6 ??C) (Oral) Resp 16 Ht 1.829 m (6') Wt 127.415kg (280 lb 14.4 oz) BMI 38.09 kg/m2 SpO2 99% Vital sign ranges: Temp: [97.6 ??F (36.4 ??C)-98.1 ??F (36.7 ??C)] 97.9 ??F (36.6 ??C) Pulse: [76-91] 76 Heart Rate: [73-91] 91 Resp: [16] 16 BP: (130-163)/(85-102) 144/90 mmHg SpO2: [94 %-99 %] 99 % Patient Vitals for the past 24 hrs: BP Temp Temp src Pulse Heart Rate Resp SpO2 Weight 02/06/14 0600 144/90 mmHg - - 76 - - 99 % - 02/06/14 0300 147/99 mmHg 97.9 ??F (36.6 ??C) Oral 80 - 16 98 % - 02/06/14 0041 163/90 mmHg 98.1 ??F (36.7 ??C) Oral 91 91 16 94 % 127.415 kg (280 lb 14.4 oz) 02/05/14 2000 137/86 mmHg 97.8 ??F (36.6 ??C) Axillary 89 - 16 98 % - 02/05/14 1508 162/102 mmHg - - - - - - - 02/05/14 1500 - 97.7 ??F (36.5 ??C) Oral - 80 16 96 % - 02/05/14 1458 130/100 mmHg - - - - - - - 02/05/14 1127 142/85 mmHg 98.1 ??F (36.7 ??C) Oral - 79 16 96 % - 02/05/14 1037 137/92 mmHg 97.6 ??F (36.4 ??C) Oral - 73 16 97 % - 02/05/14 0944 142/95 mmHg 97.9 ??F (36.6 ??C) Oral - 77 16 97 % - General Appearance: In no acute distress Skin: Normal Heart: Atrial fibrillation, normal rate. No murmurs, gallops, or rubs Lungs: CTAB Abdomen: soft, and non-tender. Mildly tender over the kidney graft. The wound is dry, intact, scant bloody drainage on pressure dressing, , MARGARET drain in place with serosanguinous drainage. : gibbs is present. The genitalia is not edematous. Urine has no evidence of gross hematuria. Extremities: edema: present bilaterally. 1+ Neurologic: awake, alert and oriented. CN grossly intact. No focal deficit No pronator drift. Tremorabsent. Line: CVC Data: CMP Recent Labs Lab 02/06/14 0557 02/05/14 0702 02/02/14 2209 02/02/14 1840 02/02/14 1407 NA 142 143 < > 137 141 141 POTASSIUM 4.7 4.3 < > 4.4 3.7 4.2 CHLORIDE 106 107 < > -- -- 101 CO2 28 25 < > -- -- 26 GLC 196* 123* < > 116* 76 112* BUN 71* 66* < > -- -- 42* CR 3.96* 4.77* < > -- -- 6.03* GFRESTIMATED 15* 12* < > -- -- 9* GFRESTBLACK 19* 15* < > -- -- 11* ENEDINA 9.4 9.4 < > -- -- 9.9 ICAW -- -- -- 4.8 4.8 -- MAG 1.9 2.0 < > -- -- -- PHOS 4.5 5.7* < > -- -- -- ALBUMIN -- -- -- -- -- 4.2 BILITOTAL -- -- -- -- -- 0.7 ALKPHOS -- -- -- -- -- 88 AST -- -- -- -- -- 18 ALT -- -- -- -- -- 33 < > = values in this interval not displayed. CBC Recent Labs Lab 02/06/14 0557 02/06/14 0102 02/05/14 1204 02/03/14 0538 HGB 9.6* 10.2* 10.3* < > 9.9* WBC 5.1 -- 7.4 < > 13.2* PLT 85* -- 91* < > 108* A1C -- -- -- -- 6.2* < > = values in this interval not displayed. COAGS Recent Labs Lab 02/06/14 0557 02/05/14 1204 INR 1.32* 1.24* PTT 154* -- Urinalysis Recent Labs Lab Test 02/02/14 1400 02/08/12 0706 COLOR Light Yellow Light Yellow APPEARANCE Clear Clear URINEGLC 70* 300* URINEBILI Negative Negative URINEKETONE Negative Negative SG 1.008 1.010 UBLD Negative Negative URINEPH 8.0* 7.5* PROTEIN 100* 300* NITRITE Negative Negative LEUKEST Negative Negative RBCU 0 <1 WBCU 1 1 UTPG 2.15* -- Virology: CMV IgG Antibody Date Value Range Status 02/08/2012 3.30 Final Positive for anti-CMV IgG EBV VCA IgG Antibody Date Value Range Status 02/08/2012 188.00 Final Positive, suggests immunologic exposure. Hepatitis C Antibody Date Value Range Status 02/02/2014 Negative NEG Final Hep B Surface Shaye Date Value Range Status 02/08/2012 135.0 Final Positive, Patient is considered to be immune to infection with hepatitis B when the value is greater than or equal to 12.0 mlU/mL. Attestation: The patient has been seen and evaluated by me. Vital signs, labs, medications and orders were reviewed. When obtained, diagnostic images were reviewed by me and interpreted as above. The care plan was discussed with the multidisciplinary team and I agree with the findings and plan in this note, with any differences recorded in blue. Immunosuppressive medication management was reviewed and adjusted as reflected in the note and orders. . Joseph Quintana MD - 02/05/2014 8:36 PM CDT Nephrology Progress Note 02/05/2014 Assessment & Recommendations: Mr. Guthrie is a 63 year old gentleman with a history of type 2 diabetes, hypertension, and hyperlipidemia who received a DDKT from an extended criteria donor on 02/02. Slow graft function, though creatinine is slowly declining. Kidney had severe atherosclerotic plaque, which was cleaned. Today is POD #3. 1) Graft Function - Extended criteria donor. Significant atherosclerotic plaque, which was cleaned. Kidney reperfused slowly. He had slow graft function initially, though creatinine is now declining, from 5.9 yesterday to 4.7 today. Graft US on 02/03 was without abnormality. - Monitor creatinine daily 2) Immunosuppression - Induction with thymoglobulin and methylprednisolone (today is day 4 for both). ALC is 400 today. - Continue thymoglobulin and methylprednisolone - agree with full dose thymo today - Continue mycophenolate 1000 mg BID - Tacrolimus started AM of 02/04 - would check level tomorrow 3) Prophylaxis - On valganciclovir, TMP-SMX, and clotrimazole per protocol. Both EBV and CMV are D+/R+. 4) BP/Volume - History of hypertension as an outpatient, on lisinopril 40 mg daily and metoprolol succinate 100 mg daily. Currently on IV furosemide 80 mg BID and metoprolol tartrate 12.5 mg BID. Pressures remain well controlled. Likely euvolemic. States EDW on HD was 133 kg, currently 129 kg. - You may stop diuretics at this point - Continue metoprolol tartrate 12.5 mg BID - Continue to hold lisinopril 5) Anemia - Hemoglobin stable around 9.5. He is iron replete. - Monitor hemoglobin daily 6) Hyperphosphatemia - Phosphorus is 5.7 this morning. PTH is 362. Should improve as creatinine drops. Seen and discussed with Dr. Quintana. Sina Robison MD Nephrology Fellow [phone] Attestation: This patient has been seen and evaluated by me, Joseph Quintana MD. I have reviewed the note and agree with plan of care as documented by the fellow. Interval History : Mr. Guthrie reports he is doing well. Eager to have Gibbs out. May be cardioverted before discharge. On heparin gtt. No shortness of breath, does not feel swollen. No fevers. Review of Systems: A 10-point review of systems was obtained and was negative except for the pertinent positives and negatives listed in the HPI. Physical Exam: BP 137/86 Pulse 89 Temp(Src) 97.8 ??F (36.6 ??C) (Axillary) Resp 16 Ht 1.829 m (6') Wt 129kg (284 lb 6.3 oz) BMI 38.56 kg/m2 SpO2 98% I/O last 3 completed shifts: In: 1656.27 [P.O.:1080; I.V.:101.27; IV Piggyback:475] Out: 5277 [Urine:5105; Drains:172] Gen - Alert, oriented, NAD. Neck - No LAD or thyromegaly. CV - RRR, no M/R/G. Lungs - Equal air entry bilaterally. Lungs are clear. Abdomen - Soft, nondistended. + Bowel sounds. Slight tenderness over graft incision. MARGARET drain in place. Extremities - Left BKA. Right leg with no edema. Skin - No rashes or petechiae. Neuro - Alert, nonfocal exam. Labs: CMP Recent Labs Lab 02/05/14 0702 02/04/14 0549 02/03/14 2216 02/03/14 1852 02/03/14 0538 02/02/14 2250 02/02/14 1407 NA 143 142 -- -- -- 141 -- 138 < > 141 POTASSIUM 4.3 4.9 4.8 4.7 < > 4.4 < > 4.5 < > 4.2 CHLORIDE 107 107 -- -- -- 105 -- 104 -- 101 CO2 25 23 -- -- -- 20 -- 25 -- 26 ANIONGAP 10 12 -- -- -- 15 -- 10 -- 13 GLC 123* 151* -- -- -- 170* -- 134* < > 112* BUN 66* 57* -- -- -- 49* -- 44* -- 42* CR 4.77* 5.94* -- -- -- 6.38* -- 6.14* -- 6.03* GFRESTIMATED 12* 10* -- -- -- 9* -- 9* -- 9* GFRESTBLACK 15* 12* -- -- -- 11* -- 11* -- 11* ENEDINA 9.4 9.4 -- -- -- 9.1 -- 8.8 -- 9.9 MAG 2.0 2.1 -- -- -- 2.0 -- 1.8 -- -- PHOS 5.7* 6.3* -- -- -- 4.7* -- 4.4 -- -- PROTTOTAL -- -- -- -- -- -- -- -- -- 7.5 ALBUMIN -- -- -- -- -- -- -- -- -- 4.2 BILITOTAL -- -- -- -- -- -- -- -- -- 0.7 ALKPHOS -- -- -- -- -- -- -- -- -- 88 AST -- -- -- -- -- -- -- -- -- 18 ALT -- -- -- -- -- -- -- -- -- 33 < > = values in this interval not displayed. CBC Recent Labs Lab 02/05/14 1204 02/05/14 0702 02/04/14 0549 02/03/14 2216 02/03/14 0538 HGB 10.3* 9.7* 9.5* 9.4* < > 9.9* WBC 7.4 8.9 13.8* -- -- 13.2* RBC 3.31* 3.20* 3.10* -- -- 3.20* HCT 31.0* 30.0* 28.7* -- -- 30.2* MCV 94 94 93 -- -- 94 MCH 31.1 30.3 30.6 -- -- 30.9 MCHC 33.2 32.3 33.1 -- -- 32.8 RDW 14.7 14.6 14.6 -- -- 14.5 PLT 91* 96* 91* -- -- 108* < > = values in this interval not displayed. INR Recent Labs Lab 02/05/14 1204 INR 1.24* ABG Recent Labs Lab 02/02/14 2209 02/02/14 1840 O2PER 45 100% URINE STUDIES Recent Labs Lab Test 02/02/14 1400 02/08/12 0706 COLOR Light Yellow Light Yellow APPEARANCE Clear Clear URINEGLC 70* 300* URINEBILI Negative Negative URINEKETONE Negative Negative SG 1.008 1.010 UBLD Negative Negative URINEPH 8.0* 7.5* PROTEIN 100* 300* NITRITE Negative Negative LEUKEST Negative Negative RBCU 0 <1 WBCU 1 1 Recent Labs Lab Test 02/02/14 1400 UTPG 2.15* PTH Recent Labs Lab Test 02/05/14 0702 PTHI 362* IRON STUDIES Recent Labs Lab Test 02/05/14 0702 IRON 119 FEB 207* IRONSAT 58* THEE 932* Imaging: All imaging studies reviewed by me. Current Medications: ??? insulin glargine 15 Units Subcutaneous At Bedtime ? ? insulin aspart Subcutaneous 4x Daily AC & HS ??? insulin aspart 1-7 Units Subcutaneous TID AC ??? insulin aspart 1-5 Units Subcutaneous At Bedtime ??? tacrolimus 2 mg Oral BID IS ??? [START ON 02/06/2014] sulfamethoxazole-trimethoprim 1 tablet Oral User Specified ??? metoprolol 25 mg Oral BID ??? sodium chloride (PF) 10 mL Intravenous Q8H ??? clotrimazole 10 mg Buccal TID ??? pantoprazole 40 mg Oral Daily ??? mycophenolate 1,000 mg Oral BID IS ??? valGANciclovir 450 mg Oral Twice Weekly ??? senna-docusate 2 tablet Oral BID ??? insulin aspart Subcutaneous QAM AC ??? insulin aspart Subcutaneous Daily with lunch ??? insulin aspart Subcutaneous Daily with supper ??? sertraline 100 mg Oral Daily ??? - MEDICATION INSTRUCTIONS - ??? Warfarin Therapy Reminder ??? HEParin 1,800 Units/hr (02/05/142025) ??? Reason anticoagulant not prescribed for atrial fibrillation ??? IV fluid REPLACEMENT ONLY ??? insulin (regular) Stopped (02/05/14 1137) Shiva Kahn RN - 02/05/2014 4:47 PM CDT WATER QUALITY TECHNICIAN NOTE I met with the patient and his yesterday at [facility] [id number] (telemetry unit) to discuss transition from inpatient to outpatient care following kidney translantation. 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 He has slow graft function; however, his creatinine is decreasing and urine output is increasing consistent with resolving ATN. The patient's post-op course is further complicated by new onset atrial fibrillation with cardioversion planned for tomorrow by cardiology. The kidney was placed in the right iliac fossa and revascularized to the right external iliac vessels. A double J stent was placed across the ureteroneocystostomy and is scheduled to be removed by cystoscopy in OR on 03/12/2014 with MAC anesthesia. The patient received our standard induction immunosuppression with Thymoglobulin, Solu-Medrol, and IV CellCept. CellCept will converted to oral and Prografadded once the patient's creatinine is about 3. Both donor and recipient test positive for CMV-IgG and EBV-IgG antibodies, so the patient will receive 3 months of Valcyte for CMV prophylaxis. He will also receive our standard Mycelex troches for thrush and lonnie esophagitis prophylaxis for 3 months,and Bactrim for pneumocystis pneumonia prophylaxis. I briefly reviewed the plan for daily visits to the [facility] for 5 days after discharge followed by homecare nursing visits for 2 weeks. Follow up visits with transplant surgery and nephrology and the schedule for laboratory monitoring of kidney graft function and immunosuppression were also reviewed. I gave the patient and his copies of my business card with direct line phone number and encouragedthem to call me with questions or concerns regarding his kidney transplant surgery and transplant medications. [facility] from [facility]. Joseph Rodriguez MD - 02/05/2014 11:16 AM CDT [facility] Cardiology Progress Note I have seen and examined the patient and reviewed labs, imaging tests, and ecgs. I have discussed myfindings and treatment recommendations with the housestaff and agree with their assessment and plan as outlined in their note. DOS 02/05/2014 Joseph Rodriguez MD Assessment and Recommendation: Assessment: 63 yo man with a history of end stage renal disease s/p donor transplant, HTN, and Type 2 DM who developed atrial fibrillation in the post- operative period. He continues to be in atrial fibrillation by telemetry, but remains asymptomatic. Paroxysmal atrial fibrillation is quite likely in this patient with known LA enlargement and grade II diastolic dysfunction by echocardiogram two years ago(atria could not be visualized on TTE during this hospitalization, but LV function appears normal and LVEF 55-60%). Recommendations: -- Will plan for REFUGIO cardioversion tomorrow, NPO at IA (orders placed) -- continue heparin and initiate warfarin therapy as you have done -- Given CHADS2 score of 2 (HTN, DM), agree with anticoagulation given 4-5% annual risk of stroke ifhe does indeed have paroxysmal atrial fibrillation. Regardless, will need to be on anticoagulation with warfarin for 1 month following cardioversion (vs lifelong if he reverts to atrial fibrillation) given risk of stroke due to atrial stunning following cardioversion. -- Continue metoprolol 25mg BID; will hold off on antiarrhythmic at this time. Please do not hesitate to page with questions. Patient was seen and plan discussed with Dr. Rodriguez, cardiology attending, who is in agreement. Yudi Garcia MD Internal Medicine-Pediatrics R3 Interval History: No acute events overnight. He remains in atrial fibrillation by telemetry, but otherwise is asymptomatic. No chest pain, shortness of breath, or significant fatigue. Otherwise doing well, somewhat anxious for possible cardioversion tomorrow. Medications: Current medications reviewed in EMR. Physical Exam (Resident / Clinician): Vitals were reviewed Blood pressure 142/85, pulse 95 (atrial fibrillation by telemetry), temperature 97.6 ??F (36.4 ??C),temperature source Oral, resp. rate 16, height 1.829 m (6'), weight 129 kg (284 lb 6.3 oz), SpO2 96 %. Room air. Gen: seated comfortably in bed in NAD and conversant. HEENT: NCAT, EOMI, sclera anicteric, oropharynx clear Neck: supple, JVD 8cm Chest: breathing unlabored on room air, lungs CTAB without crackles or wheezes CV: irregularly irregular, no appreciable murmurs/rubs/gallops Abd: obese, soft, NT, ND, normoactive bowel sounds, dressings c/d/i Ext: warm, trace edema Neuro: AAOx3, otherwise non-focal Data: BMP notable for K 4.3, Mg 2.0, BUN 66, Cr 4.77 TTE (02/04/14): Global and regional left ventricular function is normal with an EF of 55-60%. Right ventricular function cannot be assessed due to poor image quality. The atria cannot beassessed. Mild mitral annular calcification is present. Mild aortic valve sclerosis is present. The inferior vena cava is normal. No pericardial effusion is present. Mathew Rust MD - 02/05/2014 11:13 AM CDT Images from the original note were not included. Transplant Surgery Inpatient Daily Progress Note 02/05/2014 Assessment & Plan: Diego Guthrie 63 year old male s/p DDKT on 02/02 for ESRD 2/2 T2DM. Goodinitial function of kidney graft. No Found to be in atrial fibrillation on POD2. Graft function:good, improved. Cr 4.8<-5.94 <- 6.38; Good Uop at ~3350ml yesterday. 1055m o/n. Immunosuppression management: Thymo 100 mg (full dose) and solu medrol 0.5 mg/kg today. Total thymoglobulin given thus far including today: 375mg. Prograf 2mg BID, started yesterday. Level ordered for tomorrow AM Complexity of management:Medium. Contributing factors: organ dysfunction Hematology: Hgb stable at 9.7, ALC 0.4, PLT 96. Plan to start anticoagulation today. No signs of active bleeding. Will repeat Hb this evening. Cardiorespiratory: New onset afib found incidentally on EKG. Pt is asymptomatic. Stable BP. Metoprolol increased to 50mg BID yesterday, Also 5 mg IV metoprolol x3 for afib. Patient remains in afib, rate controlled. Cardiology consulted. Plan for cardio conversion tomorrow. Will start anticoagulation now, high intensity heparin gtt and warfarin. GI/Nutrition: Regular diet. NPO after midnight for cardio conversion tomorrow. Endocrine: BS stable with insulin drip and carb coverage. Will transition to subQ routine Fluid/Electrolytes: MIVF: discontinued. Stop lasix today. Electrolytes WNL, K 4.3 and Mg 2. : Remove gibbs this afternoon. Monitor for urinary retention. Ureteral stent, will need to be removed in ~6 weeks. Infectious disease: Afebrile, WBC 8.9, stable Prophylaxis: DVT-SCDs, heparin, GI- protonix , PCP- bactrim. CMV D(+)/R(+), EBV D+/R+, Valcyte 12 weeks Disposition: Transferred to Medical Decision Making:medium PATO/Fellow/Resident Provider: ANTONIO Smith Faculty: [facility] Transplant History: Admitted 02/02/2014 for kidney transplant. 02/02/2014 (Kidney), Postoperative day: 3 Interval History: History obtained from pt Overnight events: Pain controlled with medication. No flatus or BM. Denies nausea. Denies shortness of breath. Report from RN and SO that patient was sleepy and having slurred speech yesterday afternoon. No confusion or change in exam today. Patient reports he has trouble finding words at times. Patient able to repeat phrase without problem. ROS: A 10-point review of systems was negative except as noted above. Meds: ??? insulin glargine 15 Units Subcutaneous At Bedtime ? ? insulin aspart Subcutaneous 4x Daily AC & HS ??? insulin aspart 1-7 Units Subcutaneous TID AC ??? insulin aspart 1-5 Units Subcutaneous At Bedtime ??? tacrolimus 2 mg Oral BID IS ??? [START ON 02/06/2014] sulfamethoxazole-trimethoprim 1 tablet Oral User Specified ??? metoprolol 25 mg Oral BID ??? sodium chloride (PF) 10 mL Intravenous Q8H ??? clotrimazole 10 mg Buccal TID ??? pantoprazole 40 mg Oral Daily ??? mycophenolate 1,000 mg Oral BID IS ??? valGANciclovir 450 mg Oral Twice Weekly ??? senna-docusate 2 tablet Oral BID ??? insulin aspart Subcutaneous QAM AC ??? insulin aspart Subcutaneous Daily with lunch ??? insulin aspart Subcutaneous Daily with supper ??? sertraline 100 mg Oral Daily Physical Exam: Admit Weight: 124.603 kg (274 lb 11.2 oz) (With prosthesis) Current vitals: BP 137/92 Pulse 95 Temp(Src) 97.6 ??F (36.4 ??C) (Oral) Resp 16 Ht 1.829 m (6') Wt 129 kg (284 lb 6.3 oz) BMI 38.56 kg/m2 SpO2 97% Vital sign ranges: Temp: [97.6 ??F (36.4 ??C)-98.4 ??F (36.9 ??C)] 97.6 ??F (36.4 ??C) Heart Rate: [69-89] 73 Resp: [16-18] 16 BP: (122-149)/(73-95) 137/92 mmHg SpO2: [94 %-99 %] 97 % Patient Vitals for the past 24 hrs: BP Temp Temp src Pulse Heart Rate Resp SpO2 Weight 02/05/14 1037 137/92 mmHg 97.6 ??F (36.4 ??C) Oral - 73 16 97 % - 02/05/14 0944 142/95 mmHg 97.9 ??F (36.6 ??C) Oral - 77 16 97 % - 02/05/14 0729 149/81 mmHg 97.6 ??F (36.4 ??C) Oral - 73 16 99 % - 02/05/14 0304 124/76 mmHg 97.7 ??F (36.5 ??C) Oral - 81 18 97 % - 02/05/14 0012 144/73 mmHg 97.7 ??F (36.5 ??C) Oral - 72 18 95 % 129 kg (284 lb 6.3 oz) 02/04/14 1900 122/74 mmHg 97.6 ??F (36.4 ??C) Oral - 89 18 94 % - 02/04/14 1519 133/79 mmHg 98.4 ??F (36.9 ??C) Oral - 69 16 97 % - 02/04/14 1228 135/85 mmHg 98.2 ??F (36.8 ??C) Oral - 72 16 94 % - General Appearance: In no acute distress Skin: Normal Heart: Atrial fibrillation, normal rate. No murmurs, gallops, or rubs Lungs: CTAB, no wheezes, rhonchi, or rubs Abdomen: soft, and non-tender. Mildly tender over the kidney graft. The wound is stable, edges well approximated, MARGARET drain in place with serosanguinous drainage. : gibbs is present. The genitalia is not edematous. Urine has no evidence of gross hematuria. Extremities: edema: present bilaterally. 1+ Neurologic: awake, alert and oriented. CN grossly intact. No focal deficit No pronator drift. Tremorabsent. Line: CVC Data: CMP Recent Labs Lab 02/05/14 0702 02/04/14 0549 02/02/14 2209 02/02/14 1840 02/02/14 1407 NA 143 142 < > 137 141 141 POTASSIUM 4.3 4.9 < > 4.4 3.7 4.2 CHLORIDE 107 107 < > -- -- 101 CO2 25 23 < > -- -- 26 GLC 123* 151* < > 116* 76 112* BUN 66* 57* < > -- -- 42* CR 4.77* 5.94* < > -- -- 6.03* GFRESTIMATED 12* 10* < > -- -- 9* GFRESTBLACK 15* 12* < > -- -- 11* ENEDINA 9.4 9.4 < > -- -- 9.9 ICAW -- -- -- 4.8 4.8 -- MAG 2.0 2.1 < > -- -- -- PHOS 5.7* 6.3* < > -- -- -- ALBUMIN -- -- -- -- -- 4.2 BILITOTAL -- -- -- -- -- 0.7 ALKPHOS -- -- -- -- -- 88 AST -- -- -- -- -- 18 ALT -- -- -- -- -- 33 < > = values in this interval not displayed. CBC Recent Labs Lab 02/05/14 0702 02/04/14 0549 02/03/14 0538 HGB 9.7* 9.5* < > 9.9* WBC 8.9 13.8* -- 13.2* PLT 96* 91* -- 108* A1C -- -- -- 6.2* < > = values in this interval not displayed. COAGSNo results found for this basename: INR, PTT, XA, in the last 168 hours Urinalysis Recent Labs Lab Test 02/02/14 1400 02/08/12 0706 COLOR Light Yellow Light Yellow APPEARANCE Clear Clear URINEGLC 70* 300* URINEBILI Negative Negative URINEKETONE Negative Negative SG 1.008 1.010 UBLD Negative Negative URINEPH 8.0* 7.5* PROTEIN 100* 300* NITRITE Negative Negative LEUKEST Negative Negative RBCU 0 <1 WBCU 1 1 UTPG 2.15* -- Virology: CMV IgG Antibody Date Value Range Status 02/08/2012 3.30 Final Positive for anti-CMV IgG EBV VCA IgG Antibody Date Value Range Status 02/08/2012 188.00 Final Positive, suggests immunologic exposure. Hepatitis C Antibody Date Value Range Status 02/02/2014 Negative NEG Final Hep B Surface Shaye Date Value Range Status 02/08/2012 135.0 Final Positive, Patient is considered to be immune to infection with hepatitis B when the value is greater than or equal to 12.0 mlU/mL. Attestation: The patient has been seen and evaluated by me. Vital signs, labs, medications and orders were reviewed. When obtained, diagnostic images were reviewed by me and interpreted as above. The care plan was discussed with the multidisciplinary team and I agree with the findings and plan in this note, with any differences recorded in blue. Immunosuppressive medication management was reviewed and adjusted as reflected in the note and orders. . Roopa Castro LSW - 02/05/2014 10:49 AM CDT D: Pt s/p donor transplant kidney on 02/02/2014. [facility] [place] [facility] though reports that his girlfriend in in the process of moving in with him. Pt girlfriend, Tete, will be present when pt returns home but she works multimedia coordinator. Pt was on dialysis for 2 1/2 years prior to transplant. Pt works independently but reports that he currently has no income coming in. Pt has primary insurancethrough Medicare and Secondary insurance through [employer]. Pt has no co-pays for his immunosuppressants and a high out of pocket cost for Valcyte, SW to look into grants for pt for Valcyte. I: Met with pt to introduce this rfp writer and explain sw role and services available while inpatient in the hospital. Asked if pt had any questions or concerns and completed an assessment of psychosocialneeds post transplant. Provided education about expectations and requirements post discharge like fol low up in the [facility]. Pt is unsure yet if he will drive back and forth to appointments or stay in the area for follow-up care. Talked about medication compliance and ESRD medicare benefit. Completed 2728form. Assessed coping ability and whether there were any mental health concerns. A: Patient was tired but friendly and forthcoming with information being discussed during visit today. Pt displayed an appropriate affect and good coping skills. Pt appeared to process information welland asked appropriate follow up questions. Pt was able to verbalize understanding of expectations and necessary follow up at discharge. Pt indicates that he believes has adequate support for discharge though identifies his girlfriend as his only support.. Pt denies any current mental health concerns. P: SW to assist in applying for grants. SW remains available to assist should further appropriate needs arise prior to discharge. CECY Kearns, STRATEGIES ANALYST Indu Calixto MD - 02/05/2014 1:50 AM CDT 02/05/2014 Cross Cover Note Paged regarding patients mental status. Per the nurse, the patient's significant other noted increased sleepiness and slowing of speech since 1PM and notified nurse at 8PM. Of note, this morning pt wasnoted to have new onset afib. Has been asymptomatic with stable BP throughout and was begun on Metoprolol 12.5 BID per day team. This evening, evaluated patient at bedside BP 144/73 Pulse 95 Temp(Src) 97.7 ??F (36.5 ??C) (Oral) Resp 18 Ht 1.829 m (6') Wt 129 kg (284 lb 6.3 oz) BMI 38.56 kg/m2 SpO2 95% General: Arousable to voice. Oriented x3. Alert, interactive and appropriate. Resp: Nonlabored, Clear to auscultation b/l CV: irregularly irregular, no murmurs/rubs/gallops Abdomen: Soft, non-distended. Appropriately tender at incision. Incision clean, dry and intact secured with [place]. Neuro: Alert, oriented x3. Conversant and appropriate. Would close eyes and drift off when not beingspoke to, however would easily arouse to sound and respond appropriately to conversation. Pupils equally round and reactive to light. Able to move all extremities. No slurred speach Diego Guthrie is a 63 year old M s/p donor kidney transplant who was found to be in afib on ECG this morning and was noted to have potentially abnormal mental status this evening howeverat the time of examination patient's significant other was not there to provide baseline. Upon exam patient was hemodynamically stable, alert and appropriate. No evidence of hypoxia, was normoglycemia,and no signs of infection. Nurse was at bedside during exam and was instructed to page if there was any evidence of new hemodynamic instability, fevers, decreased UOP, respiratory distress or changes in mental status. Indu Calixto, PGY1 Angela Wilder, PT - 02/04/2014 4:57 PM CDT 02/04/14 1650 Quick Adds Type of Visit Initial PT Evaluation Instrument Technician Instrument Technician Present no Language Prydeinig Living Environment (R) Lives With [facility] Home Accessibility no concerns Number of Stairs To Enter Home 0 Number of Stairs Within Home 0 Transportation Available family or friend will provide;car Self-Care Usual Activity Tolerance good Current Activity Tolerance moderate Regular Exercise no Equipment Currently Used At Home none (R) Functional Level Prior (R) Ambulation 0-->independent (R) Transferring 0-->independent (R) Toileting 0-->independent (R) Bathing 0-->independent (R) Dressing 0-->independent (R) Eating 0-->independent (R) Communication 0-->understands/communicates without difficulty (R) Swallowing 0-->swallows foods and liquids without difficulty (R) Cognition 0 - no cognition issues reported (R) Fall history within last six months no (R) Which of the above functional risks had a recent onset or change? none General Information Onset of Illness/Injury or Date of Surgery - Date 02/02/14 Referring Physician Caitlin Owens MD Patient/Family Goals Statement To go home Pertinent History of Current Problem Pt is a 63 year old male POD #2 s/p DDKT 2/2 ESRD. PMH includesDM II, HTN, HLD, diabetic neuropathy/retinopaty/nephropathy, gout, depression, thrombocytopenia, andLLE BKA. Precautions/Limitations fall precautions;abdominal precautions Heart Disease Risk Factors Lack of physical activity;Overweight;Medical history;Gender;Age;High blood pressure;Dislipidemia General Info Comments Activity: up with assist, session ok per RN Cognitive Status Examination Orientation orientation to person, place and time Level of Consciousness alert Follows Commands and Answers Questions 100% of the time Personal Safety and Judgment intact Memory intact Pain Assessment Patient Currently in Pain No Posture Posture Forward head position;Protracted shoulders Range of Motion (ROM) ROM Quick Adds No deficits were identified Strength Strength Comments Grossly >3/5 in BLEs as assessed by functional mobility Bed Mobility Bed Mobility Comments Min A for supine to sit, mod A to scoot forward in bed Transfer Skills Transfer Comments Sit<>stand with CGA Gait Gait Comments Pt ambulates 150' with BUE support on IV pole and CGA. Demo's unsteady gait 2/2 L prosthetic with impaired fit due to increased swelling with resultant LLE longer than RLE Balance Balance Comments Fair, requires BUE support for balance Sensory Examination Sensory Perception Comments RLE numbness, intact to light touch General Therapy Interventions Planned Therapy Interventions balance training;bed mobility training;gait training;transfer training;risk factor education;home program guidelines;progressive activity/exercise;prosthetic fitting/traini ng;strengthening Clinical Impression Criteria for Skilled Therapeutic Intervention yes, treatment indicated PT Diagnosis Impaired functional mobility APTA Preferred Practice Pattern musculoskeletal Influenced by the following impairments Decreased strength, endurance, impaired balance/sensation, impaired prosthetic fit Functional limitations due to impairments Bed mobility, transfers, gait Rehab Potential good, to achieve stated therapy goals Rehab potential affected by Age, motivation, PLOF, accessible home, prosthetic fit Therapy Frequency` daily Predicted Duration of Therapy Intervention (days/wks) 02/11/14 Anticipated Equipment Needs at Discharge (none anticipated) Anticipated Discharge Disposition home w/ assist Risk & Benefits of therapy have been explained Yes Patient, Family & other staff in agreement with plan of care Yes Total Evaluation Time Total Evaluation Time (Minutes) 5 Roopa Castro LSW - 02/04/2014 3:38 PM CDT SW received consult for post transplant assessment. SW attempted to meet with pt, pt with another service at the time. SW to follow up when pt is available. CECY Kearns, STRATEGIES ANALYST [phone] phone [phone] pager Joseph Quintana MD - 02/04/2014 11:51 AM CDT Nephrology Progress Note 02/04/2014 Assessment & Recommendations: Mr. Guthrie is a 63 year old gentleman with a history of type 2 diabetes, hypertension, and hyperlipidemia who received a DDKT from an extended criteria donor on 02/02. Slow graft function, though creatinine is slowly declining. Kidney had severe atherosclerotic plaque, which was cleaned. Today is POD #2. 1) Graft Function - Extended criteria donor. Significant atherosclerotic plaque, which was cleaned. Kidney reperfused slowly. He had slow graft function initially, though creatinine is now declining, from 6.3 yesterday to 5.9 today. Graft US on 02/03 was without abnormality. - No indication for HD today - will monitor for need daily - Monitor creatinine daily 2) Immunosuppression - Induction with thymoglobulin and methylprednisolone (today is day 3 for both). ALC is 200 today. - Continue thymoglobulin and methylprednisolone - agree with reduced dose thymo today (75 mg) - Continue mycophenolate 1000 mg BID - Agree with starting tacrolimus this morning - 2 mg BID 3) Prophylaxis - On valganciclovir, TMP-SMX, and clotrimazole per protocol. Both EBV and CMV are D+/R+. 4) BP/Volume - History of hypertension as an outpatient, on lisinopril 40 mg daily and metoprolol succinate 100 mg daily. Currently on IV furosemide 80 mg BID and metoprolol tartrate 12.5 mg BID. Pressures are well controlled this morning. He is likely slightly hypervolemic, I/O's up 5 liters from admission. - Please stop IV fluids - Continue IV furosemide at 80 mg BID - Continue metoprolol tartrate 12.5 mg BID - Continue to hold lisinopril 5) Anemia - Hemoglobin stable around 9.5. - Please check iron studies (ordered for you) - Monitor hemoglobin daily 6) Hyperphosphatemia - Phosphorus is 6.3 this morning. Should improve as creatinine drops. - Please check PTH (ordered for you) Seen and discussed with Dr. Quintana. Sina Robison MD Nephrology Fellow [phone] Attestation: This patient has been seen and evaluated by me, Joseph Quintana MD. I have reviewed the note and agree with plan of care as documented by the fellow. Interval History : Mr. Guthrie reports he is doing well, really doesn't have any complaints. Pain is adequately controlled now, taking a bit more pain medication. No shortness of breath, no swelling, no cough, no fevers. He denies chest pain at rest or with exertion. Review of Systems: A 10-point review of systems was obtained and was negative except for the pertinent positives and negatives listed in the HPI. Physical Exam: BP 139/73 Pulse 95 Temp(Src) 97.6 ??F (36.4 ??C) (Oral) Resp 16 Ht 1.829 m (6') Wt 129.729kg (286 lb) BMI 38.78 kg/m2 SpO2 93% I/O last 3 completed shifts: In: 4194.26 [P.O.:990; I.V.:3204.26] Out: 2130 [Urine:2020; Drains:110] Gen - Alert, oriented, NAD. Neck - No LAD or thyromegaly. CV - RRR, no M/R/G. Lungs - Equal air entry bilaterally. Few crackles bilaterally, resolve with inspiration. Abdomen - Soft, nondistended. + Bowel sounds. Slight tenderness over graft incision. MARGARET drain in place. Extremities - Left BKA. Right leg with trace edema. Skin - No rashes or petechiae. Neuro - Alert, nonfocal exam. Labs: CMP Recent Labs Lab 02/04/14 0549 02/03/14 2216 02/03/14 1852 02/03/14 1341 02/03/14 0538 02/02/14 2250 02/02/14 2209 02/02/14 1407 NA 142 -- -- -- -- 141 -- 138 137 < > 141 POTASSIUM 4.9 4.8 4.7 4.7 < > 4.4 < > 4.5 4.4 < > 4.2 CHLORIDE 107 -- -- -- -- 105 -- 104 -- -- 101 CO2 23 -- -- -- -- 20 -- 25 -- -- 26 ANIONGAP 12 -- -- -- -- 15 -- 10 -- -- 13 GLC 151* -- -- -- -- 170* -- 134* 116* < > 112* BUN 57* -- -- -- -- 49* -- 44* -- -- 42* CR 5.94* -- -- -- -- 6.38* -- 6.14* -- -- 6.03* GFRESTIMATED 10* -- -- -- -- 9* -- 9* -- -- 9* GFRESTBLACK 12* -- -- -- -- 11* -- 11* -- -- 11* ENEDINA 9.4 -- -- -- -- 9.1 -- 8.8 -- -- 9.9 MAG 2.1 -- -- -- -- 2.0 -- 1.8 -- -- -- PHOS 6.3* -- -- -- -- 4.7* -- 4.4 -- -- -- PROTTOTAL -- -- -- -- -- -- -- -- -- -- 7.5 ALBUMIN -- -- -- -- -- -- -- -- -- -- 4.2 BILITOTAL -- -- -- -- -- -- -- -- -- -- 0.7 ALKPHOS -- -- -- -- -- -- -- -- -- -- 88 AST -- -- -- -- -- -- -- -- -- -- 18 ALT -- -- -- -- -- -- -- -- -- -- 33 < > = values in this interval not displayed. CBC Recent Labs Lab 02/04/14 0549 02/03/14 2216 02/03/14 1852 02/03/14 1341 02/03/14 0538 02/02/14 2250 02/02/14 1407 HGB 9.5* 9.4* 9.6* 9.8* < > 9.9* < > 10.3* < > 11.5* WBC 13.8* -- -- -- -- 13.2* -- 8.2 -- 6.3 RBC 3.10* -- -- -- -- 3.20* -- 3.34* -- 3.71* HCT 28.7* -- -- -- -- 30.2* -- 30.9* -- 33.7* MCV 93 -- -- -- -- 94 -- 93 -- 91 MCH 30.6 -- -- -- -- 30.9 -- 30.8 -- 31.0 MCHC 33.1 -- -- -- -- 32.8 -- 33.3 -- 34.1 RDW 14.6 -- -- -- -- 14.5 -- 14.3 -- 14.0 PLT 91* -- -- -- -- 108* -- 79* -- 110* < > = values in this interval not displayed. INRNo results found for this basename: INR, PTT, in the last 168 hours ABG Recent Labs Lab 02/02/14 2209 02/02/14 1840 O2PER 45 100% URINE STUDIES Recent Labs Lab Test 02/02/14 1400 02/08/12 0706 COLOR Light Yellow Light Yellow APPEARANCE Clear Clear URINEGLC 70* 300* URINEBILI Negative Negative URINEKETONE Negative Negative SG 1.008 1.010 UBLD Negative Negative URINEPH 8.0* 7.5* PROTEIN 100* 300* NITRITE Negative Negative LEUKEST Negative Negative RBCU 0 <1 WBCU 1 1 Recent Labs Lab Test 02/02/14 1400 UTPG 2.15* PTH No results found for this basename: PTHI, in the last 67078 hours IRON STUDIES No results found for this basename: IRON, FEB, IRONSAT, THEE, in the last 55118 hours Imaging: All imaging studies reviewed by me. Current Medications: ??? tacrolimus 2 mg Oral BID IS ??? acetaminophen 650 mg Oral Once ??? diphenhydrAMINE 25-50 mg Oral Once Or ??? diphenhydrAMINE 25-50 mg Intravenous Once ??? methylPREDNISolone sodium succinate 65 mg Intravenous Once ??? anti-thymocyte globulin 75 mg Intravenous Central line Once ??? [START ON 02/06/2014] sulfamethoxazole-trimethoprim 1 tablet Oral User Specified ??? sodium chloride (PF) 10 mL Intravenous Q8H ??? clotrimazole 10 mg Buccal TID ??? pantoprazole 40 mg Oral Daily ??? mycophenolate 1,000 mg Oral BID IS ??? valGANciclovir 450 mg Oral Twice Weekly ??? furosemide 80 mg Intravenous BID ??? senna-docusate 2 tablet Oral BID ??? insulin aspart Subcutaneous QAM AC ??? insulin aspart Subcutaneous Daily with lunch ??? insulin aspart Subcutaneous Daily with supper ??? sertraline 100 mg Oral Daily ??? metoprolol 12.5 mg Oral BID ??? Reason anticoagulant not prescribed for atrial fibrillation ??? IV fluid REPLACEMENT ONLY ??? insulin (regular) 5 Units/hr (02/04/14 0900) Mathew Rust MD - 02/04/2014 10:55 AM CDT Images from the original note were not included. Transplant Surgery Inpatient Daily Progress Note 02/04/2014 Assessment & Plan: Diego Guthrie 63 year old male s/p DDKT on 02/02 for ESRD 2/2 T2DM. Pt has been recovering well following surgery, found to be in atrial fibrillation this AM. Graft function:good, improved. Cr 5.94 <- 6.38; pt has good Uop at ~2500ml since yesterday. Immunosuppression management: Changed to 75mg thymo (half dose) . Started prograf 2mg BID Complexityof management:Medium. Contributing factors: organ dysfunction Hematology: Hgb stable at 9.5, ALC 0.2 Cardiorespiratory: New onset afib found incidentally on EKG this am. Pt is asymptomatic. Stable BP. Metoprolol 12.5mg BID started, added 5 mg IV metoprolol x3 for afib without conversion GI/Nutrition: Regular diet Endocrine: BS stable with insulin drip and carb coverage. Will transition to subQ routine Fluid/Electrolytes: MIVF:Decreased, discontinued. : Gibbs to remain d/t surgical anastamosis Infectious disease: Mild leukocytosis, stable Prophylaxis: DVT-SCDs, GI- protonix , PCP- bactrim. CMV D(+)/R(+), EBV D+/R+, Valcyte 12 weeks Disposition: Transferred to for continuous tele monitoring Medical Decision Making:medium PATO/Fellow/Resident Provider: Adeline Diaz Faculty: [facility] Transplant History: Admitted 02/02/2014 for kidney transplant. 02/02/2014 (Kidney), Postoperative day: 2 Interval History: History obtained from pt Overnight events: Asymptomatic, rate controlled afib noted early this am. Did not convert with 5mg metoprolol IV x3. Transferred to for continuous tele, will continue to monitor. Otherwise stable, no acute events, pain well controlled. Tolerating PO diet. Tolerating OOB ROS: A 10-point review of systems was negative except as noted above. Meds: ??? tacrolimus 2 mg Oral BID IS ??? acetaminophen 650 mg Oral Once ??? diphenhydrAMINE 25-50 mg Oral Once Or ??? diphenhydrAMINE 25-50 mg Intravenous Once ??? methylPREDNISolone sodium succinate 65 mg Intravenous Once ??? anti-thymocyte globulin 75 mg Intravenous Central line Once ??? sodium chloride (PF) 10 mL Intravenous Q8H ??? clotrimazole 10 mg Buccal TID ??? pantoprazole 40 mg Oral Daily ??? sulfamethoxazole-trimethoprim 1 tablet Oral Daily ??? mycophenolate 1,000 mg Oral BID IS ??? valGANciclovir 450 mg Oral Twice Weekly ??? furosemide 80 mg Intravenous BID ??? senna-docusate 2 tablet Oral BID ??? insulin aspart Subcutaneous QAM AC ??? insulin aspart Subcutaneous Daily with lunch ??? insulin aspart Subcutaneous Daily with supper ??? sertraline 100 mg Oral Daily ??? metoprolol 12.5 mg Oral BID Physical Exam: Admit Weight: 124.603 kg (274 lb 11.2 oz) (With prosthesis) Current vitals: BP 139/73 Pulse 95 Temp(Src) 97.6 ??F (36.4 ??C) (Oral) Resp 16 Ht 1.829 m (6') Wt 129.729kg (286 lb) BMI 38.78 kg/m2 SpO2 93% CVP (mmHg): 8 mmHg Vital sign ranges: Temp: [97.6 ??F (36.4 ??C)-98.3 ??F (36.8 ??C)] 97.6 ??F (36.4 ??C) Pulse: [92-98] 95 Heart Rate: [70-92] 71 Resp: [15-20] 16 BP: (106-153)/(65-86) 139/73 mmHg SpO2: [88 %-98 %] 93 % Patient Vitals for the past 24 hrs: BP Temp Temp src Pulse Heart Rate Resp SpO2 Weight 02/04/14 1000 139/73 mmHg - - - 71 - - - 02/04/14 0937 114/76 mmHg - - - 77 - - - 02/04/14 0900 131/76 mmHg - - - 79 - - - 02/04/14 0858 106/65 mmHg - - - 84 - - - 02/04/14 0841 150/78 mmHg - - - 86 - - - 02/04/14 0824 131/79 mmHg - - 95 - - - - 02/04/14 0730 153/86 mmHg 97.6 ??F (36.4 ??C) Oral 92 92 16 93 % - 02/04/14 0306 - - - - - - 92 % - 02/04/14 0302 135/76 mmHg 98.1 ??F (36.7 ??C) Oral 98 - 20 88 % - 02/04/14 0200 - - - - - - - 129.729 kg (286 lb) 02/04/14 0025 - - - - - - 94 % - 02/04/14 0007 - - - - - - 88 % - 02/03/14 2351 134/68 mmHg 98.3 ??F (36.8 ??C) Oral - 78 16 95 % - 02/03/14 1851 144/71 mmHg 98 ??F (36.7 ??C) Oral - 70 15 98 % - 02/03/14 1504 137/68 mmHg 98.2 ??F (36.8 ??C) Oral - 70 16 97 % - 02/03/14 1200 135/75 mmHg - - - 72 16 94 % - 02/03/14 1100 131/69 mmHg 98 ??F (36.7 ??C) Oral - 70 16 92 % - General Appearance: In no acute distress Skin: Normal Heart: Atrial fibrillation, normal rate. BP stable. No murmurs, gallops, or rubs Lungs: CTAB, no wheezes, rhonchi, or rubs Abdomen: The abdomen is soft, and Non-tender. He is mildly tender over the kidney graft. The wound is stable, edges well approximated, MARGARET drain in place with serosanguinous drainage. : gibbs is present. The genitalia is not edematous. Urine has no evidence of gross hematuria. Extremities: edema: present bilaterally. 1+ Neurologic: awake, alert and oriented. Tremor absent.. Data: CMP Recent Labs Lab 02/04/14 0549 02/03/14 2216 02/03/14 0538 02/02/14 2209 02/02/14 1840 02/02/14 1407 NA 142 -- -- 141 < > 137 141 141 POTASSIUM 4.9 4.8 < > 4.4 < > 4.4 3.7 4.2 CHLORIDE 107 -- -- 105 < > -- -- 101 CO2 23 -- -- 20 < > -- -- 26 GLC 151* -- -- 170* < > 116* 76 112* BUN 57* -- -- 49* < > -- -- 42* CR 5.94* -- -- 6.38* < > -- -- 6.03* GFRESTIMATED 10* -- -- 9* < > -- -- 9* GFRESTBLACK 12* -- -- 11* < > -- -- 11* ENEDINA 9.4 -- -- 9.1 < > -- -- 9.9 ICAW -- -- -- -- -- 4.8 4.8 -- MAG 2.1 -- -- 2.0 < > -- -- -- PHOS 6.3* -- -- 4.7* < > -- -- -- ALBUMIN -- -- -- -- -- -- -- 4.2 BILITOTAL -- -- -- -- -- -- -- 0.7 ALKPHOS -- -- -- -- -- -- -- 88 AST -- -- -- -- -- -- -- 18 ALT -- -- -- -- -- -- -- 33 < > = values in this interval not displayed. CBC Recent Labs Lab 02/04/14 0549 02/03/14 2216 02/03/14 0538 HGB 9.5* 9.4* < > 9.9* WBC 13.8* -- -- 13.2* PLT 91* -- -- 108* A1C -- -- -- 6.2* < > = values in this interval not displayed. COAGSNo results found for this basename: INR, PTT, XA, in the last 168 hours Urinalysis Recent Labs Lab Test 02/02/14 1400 02/08/12 0706 COLOR Light Yellow Light Yellow APPEARANCE Clear Clear URINEGLC 70* 300* URINEBILI Negative Negative URINEKETONE Negative Negative SG 1.008 1.010 UBLD Negative Negative URINEPH 8.0* 7.5* PROTEIN 100* 300* NITRITE Negative Negative LEUKEST Negative Negative RBCU 0 <1 WBCU 1 1 UTPG 2.15* -- Virology: CMV IgG Antibody Date Value Range Status 02/08/2012 3.30 Final Positive for anti-CMV IgG EBV VCA IgG Antibody Date Value Range Status 02/08/2012 188.00 Final Positive, suggests immunologic exposure. Hepatitis C Antibody Date Value Range Status 02/08/2012 Negative NEG Final Hep B Surface Shaye Date Value Range Status 02/08/2012 135.0 Final Positive, Patient is considered to be immune to infection with hepatitis B when the value is greater than or equal to 12.0 mlU/mL. Adeline Diaz [phone] Attestation: The patient has been seen and evaluated by me. Vital signs, labs, medications and orders were reviewed. When obtained, diagnostic images were reviewed by me and interpreted as above. New onset, asymptomatic atrial fib. Rate ok for now, will see what cards wants to do about anticoagulation. The care plan was discussed with the multidisciplinary team and I agree with the findings and plan in this note, with any differences recorded in blue. Immunosuppressive medication management was reviewed and adjusted as reflected in the note and orders. . Caitlni Owens MD - 02/03/2014 11:12 AM CDT Transplant Surgery Inpatient Daily Progress Note 02/03/2014 Assessment & Plan: 63 yo M ESRD 2/2 DM2, was on HD via Right forearm fistula but made urine preop. Now s/p donor kidney transplant, with stent on 02/02/14. [employer] donor. Graft function:uncertain, Cr slightly up. Slow graft fucntion. US kidney 02/03/14 - patent vessels, normal RIs. Immunosuppression management: Thymo 100mg and Solumedrol 500mg intraop. Today Thymo 100mg and Solumedrol 125mg. Continue Cellcept 1000mg BID. Hold off Prograf. Complexity of management:Medium. Contributing factors: organ dysfunction Hematology: Acute blood loss anemia. Continue hgb check q4hr. Hold off restarting ASA 81. Cardiorespiratory: Stable. Normotensive. Start Metoprolol 12.5mg BID GI/Nutrition: Liquid diet, advance as tolerated. Endocrine: Continue Insulin gtt. Start carb coverage insulin. Fluid/Electrolytes: MIVF: change to NSS@125cc/hr. Continue lasix 80mg IV BID. : Gibbs to remain due to new surgical anastomosis Infectious disease: mild leukocytosis, continue to monitor. Preop UA clean. Prophylaxis: DVT - SCDs. GI - protonix. PCP - Bactrim. CMV D+/R+, EBV D+/R+ - Valcyte 12 weeks. Psych: restart Zoloft 100mg daily. (interaction with Bactrim for Qt prolongation). Check EKG tomorrow. Disposition: Transfer to . Medical Decision Making: Medium Subsequent visit 07164 (moderate level decision making) PATO/Fellow/Resident Provider: Caitlin Owens MD Faculty: Migel Merchant M.D., Ph.D. Transplant History: Admitted 02/02/2014 for kidney transplant. N/A, Postoperative day: 1 Interval History: History is obtained from the patient Overnight events: Abdominal pain with movement. Denies nausea. Was OOB, standing. ROS: A 10-point review of systems was negative except as noted above. Meds: ??? sodium chloride (PF) 10 mL Intravenous Q8H ??? clotrimazole 10 mg Buccal TID ??? pantoprazole 40 mg Oral Daily ??? metoprolol 5 mg Intravenous Q6H ??? sulfamethoxazole-trimethoprim 1 tablet Oral Daily ??? mycophenolate 1,000 mg Oral BID IS ??? [START ON 02/04/2014] valGANciclovir 450 mg Oral Twice Weekly ??? furosemide 80 mg Intravenous BID ??? acetaminophen 650 mg Oral Once ??? diphenhydrAMINE 25-50 mg Oral Once Or ??? diphenhydrAMINE 25-50 mg Intravenous Once ??? methylPREDNISolone sodium succinate 125 mg Intravenous Once ??? anti-thymocyte globulin 100 mg Intravenous Central line Once ??? senna-docusate 2 tablet Oral BID ??? [START ON 02/04/2014] insulin aspart Subcutaneous QAM AC ??? insulin aspart Subcutaneous Daily with lunch ??? insulin aspart Subcutaneous Daily with supper Physical Exam: Admit Weight: 124.603 kg (274 lb 11.2 oz) (With prosthesis) Current vitals: BP 131/69 Pulse 55 Temp(Src) 98 ??F (36.7 ??C) (Oral) Resp 16 Ht 1.829 m (6') Wt 124 kg (273 lb 5.9 oz) BMI 37.07 kg/m2 SpO2 92% CVP (mmHg): 8 mmHg Vital sign ranges: Temp: [97.5 ??F (36.4 ??C)-98.4 ??F (36.9 ??C)] 98 ??F (36.7 ??C) Pulse: [55-58] 55 Heart Rate: [63-74] 70 Resp: [12-16] 16 BP: (103-149)/(56-86) 131/69 mmHg SpO2: [92 %-100 %] 92 % Patient Vitals for the past 24 hrs: BP Temp Temp src Pulse Heart Rate Resp SpO2 Height Weight 02/03/14 1100 131/69 mmHg 98 ??F (36.7 ??C) Oral - 70 16 92 % - - 02/03/14 0900 126/64 mmHg - - - 63 - 98 % - - 02/03/14 0809 - - - - 67 - 96 % - - 02/03/14 0808 106/58 mmHg 97.8 ??F (36.6 ??C) Oral - 67 16 97 % - - 02/03/14 0700 120/64 mmHg 97.7 ??F (36.5 ??C) Oral - 68 16 95 % - - 02/03/14 0600 112/58 mmHg - - - 69 16 95 % - - 02/03/14 0500 117/59 mmHg - - - 74 16 100 % - - 02/03/14 0400 108/63 mmHg 97.5 ??F (36.4 ??C) Oral - 71 12 100 % - - 02/03/14 0330 121/68 mmHg - - - 71 - 96 % - - 02/03/14 0300 129/70 mmHg - - - 72 16 99 % - - 02/03/14 0230 118/67 mmHg - - - 70 12 97 % - - 02/03/14 0200 109/60 mmHg 97.7 ??F (36.5 ??C) Oral - 72 12 98 % - - 02/03/14 0154 - - - - - - - - 124 kg (273 lb 5.9 oz) 02/03/14 0130 108/64 mmHg - - - 72 - 97 % - - 02/03/14 0115 103/86 mmHg - - - 72 - 99 % - - 02/03/14 0100 107/59 mmHg 97.6 ??F (36.4 ??C) Oral - 73 12 - - - 02/03/14 0045 114/64 mmHg 97.9 ??F (36.6 ??C) Oral - 73 12 100 % - - 02/03/14 0000 110/58 mmHg - - - 70 12 100 % - - 02/02/14 2345 119/56 mmHg 97.7 ??F (36.5 ??C) Oral - 73 12 100 % - - 02/02/14 2330 124/64 mmHg - - - 72 16 99 % - - 02/02/14 2315 129/71 mmHg - - - 70 12 100 % - - 02/02/14 2300 135/76 mmHg 98 ??F (36.7 ??C) Oral - 65 12 100 % - - 02/02/14 2245 142/69 mmHg - - - 69 12 100 % - - 02/02/14 2236 133/72 mmHg 97.9 ??F (36.6 ??C) Oral - 67 12 100 % - - 02/02/14 1645 149/83 mmHg - - - - 16 - - - 02/02/14 1542 139/72 mmHg 98 ??F (36.7 ??C) Oral 55 - 16 97 % - - 02/02/14 1305 136/64 mmHg 98.4 ??F (36.9 ??C) Oral 58 - 16 97 % 1.829 m (6') 124.603 kg (274 lb 11.2oz) General Appearance: in no apparent distress. Skin: warm, dry Heart: regular rate and rhythm Lungs: clear to auscultation Abdomen: The abdomen is soft, and mildly tender along RLQ incision. he is tender over the kidney graft. The wound is covered with dressing, mild serosanguinous drainage. MARGARET drain - 190cc since OR serosanguinous : gibbs is present. The genitalia is not edematous. Urine has small gross hematuria. Extremities: edema: present on RLE ankle 1+. Left BKA. Neurologic: awake, alert and oriented. Tremor absent.. Data: CMP Recent Labs Lab 02/03/14 1011 02/03/14 0538 02/02/14 2250 02/02/14 2209 02/02/14 1840 02/02/14 1407 NA -- 141 -- 138 137 141 141 POTASSIUM 4.8 4.4 < > 4.5 4.4 3.7 4.2 CHLORIDE -- 105 -- 104 -- -- 101 CO2 -- 20 -- 25 -- -- 26 GLC -- 170* -- 134* 116* 76 112* BUN -- 49* -- 44* -- -- 42* CR -- 6.38* -- 6.14* -- -- 6.03* GFRESTIMATED -- 9* -- 9* -- -- 9* GFRESTBLACK -- 11* -- 11* -- -- 11* ENEDINA -- 9.1 -- 8.8 -- -- 9.9 ICAW -- -- -- -- 4.8 4.8 -- MAG -- 2.0 -- 1.8 -- -- -- PHOS -- 4.7* -- 4.4 -- -- -- ALBUMIN -- -- -- -- -- -- 4.2 BILITOTAL -- -- -- -- -- -- 0.7 ALKPHOS -- -- -- -- -- -- 88 AST -- -- -- -- -- -- 18 ALT -- -- -- -- -- -- 33 < > = values in this interval not displayed. CBC Recent Labs Lab 02/03/14 1011 02/03/14 0538 02/02/14 2250 HGB 9.7* 9.9* < > 10.3* WBC -- 13.2* -- 8.2 PLT -- 108* -- 79* A1C -- 6.2* -- -- < > = values in this interval not displayed. COAGSNo results found for this basename: INR, PTT, XA, in the last 168 hours Urinalysis Recent Labs Lab Test 02/02/14 1400 02/08/12 0706 COLOR Light Yellow Light Yellow APPEARANCE Clear Clear URINEGLC 70* 300* URINEBILI Negative Negative URINEKETONE Negative Negative SG 1.008 1.010 UBLD Negative Negative URINEPH 8.0* 7.5* PROTEIN 100* 300* NITRITE Negative Negative LEUKEST Negative Negative RBCU 0 <1 WBCU 1 1 UTPG 2.15* -- Virology: CMV IgG Antibody Date Value Range Status 02/08/2012 3.30 Final Positive for anti-CMV IgG EBV VCA IgG Antibody Date Value Range Status 02/08/2012 188.00 Final Positive, suggests immunologic exposure. Hepatitis C Antibody Date Value Range Status 02/08/2012 Negative NEG Final Hep B Surface Shaye Date Value Range Status 02/08/2012 135.0 Final Positive, Patient is considered to be immune to infection with hepatitis B when the value is greater than or equal to 12.0 mlU/mL. Associated attestation - Migel Merchant MD - 02/04/2014 1:55 PM CDT ATTESTATION The patient has been seen and evaluated by me. Vital signs, labs, medications and orders were reviewed. When obtained, diagnostic images were reviewed by me and interpreted as above. The care plan was discussed with the team and I agree with the findings and plan in this note. Immunosuppressive medication management was reviewed and adjusted as reflected in the note and orders. Migel Merchant MD, PhD polymer engineer Abdominal Organ Transplantation Carmelita Rosario, RN - 02/03/2014 9:38 AM CDT Patient removed from the [facility] waitlist after donor kidney transplant. [facility] ID is [id number]. Rafaela Cardona - 02/03/2014 9:17 AM CDT CLINICAL NUTRITION SERVICES - ASSESSMENT NOTE REASON FOR ASSESSMENT Diego Guthrie is a 63 year old male seen by the dietitian for MD- Order- Nutrition Education- Assess and Educate Post SOT NUTRITION HISTORY Information obtained from Patient - Patient is on a regular diet at home. Patient tries to monitor phosphorus intake and increase protein intake per recommendation of dialysis dietitian. Patient also tries to monitor sugar/CHO intake for diabetes per recommendation of primary physician. Patient often found it overwhelming to try to follow all of the diet recommendations and mostly followed general diet. 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 CURRENT NUTRITION ORDERS - Diet: Clear liquid - Intake/Tolerance: Unable to evaluate, patient has not taken po this adm - Factors affecting nutrition intake include: Diet adv post-op PHYSICAL FINDINGS Observed/Obtained from Chart/Interdisciplinary Team Left leg below knee amputation (chart indicates left/right) ANTHROPOMETRICS Height: 6' 0 Weight: 273 lbs 5.93 oz (124 kg) Body mass index is 37.07 kg/(m^2). IBW: 78 kg (adj for amputation) % IBW: 159% Weight History: Patient has been trying to lose/monitor wt. Appears fairly stable/up. Wt Readings from Last 10 Encounters: 02/03/14 124 kg (273 lb 5.9 oz) 02/03/14 124 kg (273 lb 5.9 oz) 02/10/12 123.152 kg (271 lb 8 oz) 02/10/12 120.203 kg (265 lb) 02/08/12 121 kg (266 lb 12.1 oz) Dosing Weight: 90 kg (adj from current wt) LABS Labs reviewed -Phos elevated @ 4.7 today -HA1C elevated @ 6.2 MEDICATIONS Medications reviewed -D5 @ 125 ml/hr provides 150 g CHO/510 kcal daily PROCEDURES WITH NUTRITIONAL IMPLICATIONS 02/02- DDKT ASSESSED NUTRITION NEEDS: Estimated Energy Needs: 3320-7271+ kcals (25-30+ Kcal/Kg) Justification: maintenance post-transplant Estimated Protein Needs: 117-180 grams protein (1.3-2 g pro/Kg) Justification: increased post-transplant Estimated Fluid Needs: per MD NUTRITION STATUS VALIDATION % Intake: adequate % Weight Loss: none apparent Subcutaneous Fat Loss: none apparent Muscle Loss: none apparent Fluid/Edema: none apparent Malnutrition not currently indicated Weight Status: Obesity Grade II BMI 35-39.9 NUTRITION DIAGNOSIS: Food and nutrition-related knowledge deficit related to no recent knowledge regarding post-SOT education as evidenced by patient report and MD consult for nutrition education post-SOT. INTERVENTIONS Recommendations / Nutrition Prescription Diet advancement per MD discretion, rec regular diet as able (pending K+/Phos levels) to help provide more options to meet increased needs post transplant (6- 8 weeks). Rec follow heart-healthy diet [facility]. Implementation Nutrition education: Provided instruction on post-transplant diet with discussion regarding protein sources and high protein needs in acute post-tx phase. Reviewed recommendations to follow low fat/lowsodium diet [facility] and discussed heart healthy diet tips. Discussed monitoring of K+/Phos lab values with possible need for adjustment of these in the diet as necessary. Reviewed need for food safety precautions to prevent food borne illness, including recommendations for avoidance of fish/seafood x 3 weeks to avoid vibrio related illness. Provided & reviewed handout: Post-transplant diet guidelines. Patient receptive to information provided. Expected diet compliance is good. Goals Patient will verbalize understanding of 3 important aspects of post-transplant diet guidelines. PO intake >50% meals TID once diet adv. Follow up/Monitoring: Food intake, Diet Order- diet adv and adequacy of po intake, monitor per goal. Food and Nutrition Knowledge/Skill- review nutrition education as needed. Biochemical data- monitor lytes and need for diet adjustment. Rafaela Cardona RD, LD Weekend Coverage [phone] Jose Aguirre MD - 02/03/2014 4:57 AM CDT Surgery Post-Operative Note 02/03/2014 POD # 0 s/p Donor Kidney Transplant, Right iliac fossa, with venous reconstruction. A J-J ureteral stent was placed. S: Patient c/o of minimal abdominal pain, well controlled with pain medications. Patient c/o pressure feeling at the lower abdomen, uncomfortable sensation with gibbs catheter in place. Patient denies chest pain, shortness of breath, nausea, or vomiting. Maintaining saturation at 3 LPM via NA. Standing with support at the bedside. No other specific complaints. O: Filed Vitals: 02/03/14 0230 02/03/14 0300 02/03/14 0330 02/03/14 0400 BP: 118/67 129/70 121/68 108/63 Pulse: Temp: 97.5 ??F (36.4 ??C) TempSrc: Oral Resp: 12 16 12 Height: Weight: SpO2: 97% 99% 96% 100% GEN: Alert NAD, following commands CV: RRR. No m/r/g PUL: Clear bilaterally Abdomen: Soft, appropriately tender. Abdominal drain in place with SS output, Gibbs catheter in place with light pink urine output. Incision dressed and dry. Extremities - no edema, non-tender, SCDs in place. Peripheral pulses palpable. Left leg amputated Intake: 2205 cc Output: 585 cc Urine: 325 cc Drain: 160 cc Blood loss: 100 cc Balance: + 1620 cc A/P: 63 year old male who is stable s/p Donor Kidney Transplant, Right iliac fossa, with venous reconstruction. A J-J ureteral stent was placed. Doing well postoperatively. Pain: Controlled by Dilaudid PHARMACY CUSTOMER CARE SPECIALIST Diet: NPO tonight Volume Status: Borderline low UOP, continue MIVF, 0.9 % NS 500 cc bolus given for low UOP, CVP not accurate, systolic in 100-110 Recheck hemoglobin and potassium normal. Rest of the plan per primary team. Will continue to follow. Jose Aguirre MD PGY-1.................02/03/2014 Surgery Cross Cover Pager:[phone] documented in this encounter H&P Notes Caitlin Owens MD - 02/02/2014 3:43 PM CDT General Surgery History and Physical Consult Reason: Patient presents for a donor kidney transplant HPI: Diego Guthrie is a 63M with a PMH significant for DMII - insulin dependent, HTN, HLD, diabetic neuropathy/retinopathy/nephropathy with ESRD - dialysis dependent who presents for DDKT. The last timethat the patient was dialyzed was yesterday from 6:30-10:30. He is dialyzed through a R forearm AV fistula which was created in August of 2011. The last time that he ate was at 9AM. He currently feels good and denies CP, SOB, N/V, Abdominal pain, constipation, diarrhea. PMH: has a past medical history of Diabetes mellitus type II; HTN (hypertension); Hyperlipidemia; Diabetic peripheral neuropathy (2001); Retinopathy due to secondary diabetes mellitus; Gout; Anemia; Thrombocytopenia; Depression; and Dialysis patient (08/30/2011). PSH: has past surgical history that includes amputation below knee rt/lt (12-17-2005); avf; laser surgeryof eye; and cataract iol, rt/lt. FH: family history includes Alzheimers in his mother and C.A.D. in his father. SH: The patient reports that he has a history of rare cigar smoking which he has not done for seven years. Occasional EtOH use No Illicit drug use Allergies: No Known Allergies Home Meds: Prescriptions prior to admission Medication Sig Dispense Refill ??? Calcium Carbonate-Vitamin D (CALCIUM + D PO) Take by mouth daily. ??? lisinopril (PRINIVIL,ZESTRIL) 40 MG tablet Take 40 mg by mouth 2 times daily. ??? METOPROLOL SUCCINATE PO Take by mouth daily. ??? aspirin 81 MG tablet Take 1 tablet by mouth daily. ??? B zdykzyh-B-isrzc acid (NEPHROCAPS) 1 MG capsule Take 1 capsule by mouth daily. ??? LANTUS VIAL 100 UNITS/ML SC SOLN Inject 40 Units Subcutaneous daily. ??? HumaLOG VIAL 100 UNITS/ML SOLN Inject 3-13 Units Subcutaneous 3 times daily (before meals). ??? sertraline (ZOLOFT) 100 MG tablet Take 100 mg by mouth daily. ??? zolpidem (AMBIEN) 10 MG tablet Take 10 mg by mouth nightly as needed. ROS: 10 systems were reviewed and all found to be negative except as stated in HPI Physical Exam: Temp: [98.4 ??F (36.9 ??C)] 98.4 ??F (36.9 ??C) Pulse: [58] 58 Resp: [16] 16 BP: (136)/(64) 136/64 mmHg SpO2: [97 %] 97 % Exam: General: alert, no distress, resting comfortably in bed CV: RRR. No murmurs, no S3 or S4, Radial and DP/PT pulses palpable. R forearm AV fistula with palpable thrill Resp: Breathing unlabored, lung sounds clear and equal on ausculation, no crackles or wheezes Abd: Abdomen soft, non-tender. BS normal. No masses, organomegaly MSK: Normal eripheral pulses, no edema, no gross deformities Neuro: Alert and oriented, A/P: Patient is a 63 year old male with a PMH significant for DMII - insulin dependent, HTN, HLD, diabetic neuropathy/retinopathy/nephropathy with ESRD - dialysis dependent who presents for DDKT. -Admit to the Transplant Service -Standard Pre-op Kidney transplant labs, crossmatch, CXR -Nephrology consult -NPO -SCDs for mechanical prophylaxis -Will follow-up on laboratory data. 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 Kidney bx - no glomerulosclerosis. Physical exam: Femoral pulse R 3+ L3+, DP R 2+, Left BKA. No h/o CAD. Asymptomatic. Last adenosine stress test 02/15/12 - no evidence of relative ischemia. Echo 02/08/2012 - normal EF 55-60%, mild to moderate LVH, Grade II diastolic dysfunction. Will have Cardiology evaluate patient. Caitlin Owens MD Transplant fellow. Associated attestation - Migel Merchant MD - 02/04/2014 1:56 PM CDT ATTESTATION The patient has been seen and evaluated by me. Vital signs, labs, medications and orders were reviewed. When obtained, diagnostic images were reviewed by me and interpreted as above. The care plan was discussed with the team and I agree with the findings and plan in this note. Immunosuppressive medication management was reviewed and adjusted as reflected in the note and orders. Migel Merchant MD, PhD polymer engineer Abdominal Organ Transplantation documented in this encounter Consult Notes Joseph Rodriguez MD - 02/04/2014 11:03 AM CDTAssociated Order(s): CARDIOLOGY IP CONSULT [facility] CARDIOLOGY CONSULT SERVICE INITIAL CONSULT NOTE February 04, 2014 Patient Name: Diego Guthrie Date of : 1950 PCP: Momo Forbes I have seen and examined the patient and reviewed labs, imaging tests, and ecgs. I have discussed myfindings and treatment recommendations with the housestaff and agree with their assessment and plan as outlined in their note. 02/04/2014 Post op atrial fib in an asymptomatic man. Conversion to nsr is reasonable to minimize the duration of anticoagulation. When anticoagulation is safe, let us know and we will arrange REFUGIO-cardioversion. Joseph Rodriguez MD Reason for consult: New onset atrial fibrillation Date of Service: 02/04/2014 Admit Date/Time: 02/02/2014 12:55 PM Consult performed at the request of Mathew Rust MD Assessment: Diego Guthrie is a 63 year old with long standing hypertension, DM II, and now s/p donor renal transplant who developed atrail fibrillation in the past 24 hours. He is asymptomatic, had moderate left atrial enlargement and grade II diastolic dysfunction 2 years ago, which makes paroxysmal subclinical (asymtomatic) atrial fibrillation very likely. His Chads2 score of 2 for HTN, and DM makes anti-coagulation benefits superior to risks. 4-5% annualized risk stroke without ongoing anti-coagulation. Recommendations: - The patient is at sufficient risk for stroke 2/2 to atrial stunning post cardioversion, that he would need 1 month anti-coagulation at a minimum, if we choose to cardiovert he will need anti-coagulation at the time of cardioversion, if we wait >48hr, he would need REFUGIO cardioversion and still require anti- coagulation for 1 month -s/p 5iv x3 metoprolol = 75mg po metoprolol -recommend starting 25mg po bid this evening for rate control -can switch to metoprolol xl 50 if tolerates well -metoprolol does not decrease MAP significantly -obtain new echocardiogram limited for EF and atrial size History of present illness: Diego Guthrie is a 63 year old with diabetes, HTN, ESRD, s/p left BKA, and new donor renal transplant who was found to be in atrial fibrillation. He has absolutely no symptoms and would not know he is in afib unless told by his nursing staff. The patient denies any recent history of palpitations, LOC, or dizzienss and was most recently dialyzed. The No Known Allergies Past Medical History Diagnosis Date ??? Diabetes [...] eyes ??? Cataract iol, rt/lt both eyes Prescriptions prior to admission Medication Sig Dispense Refill ??? Calcium Carbonate-Vitamin D (CALCIUM + D PO) Take by mouth daily. ??? lisinopril (PRINIVIL,ZESTRIL) 40 MG tablet Take 40 mg by mouth 2 times daily. ??? METOPROLOL SUCCINATE PO Take by mouth daily. ??? aspirin 81 MG tablet Take 1 tablet by mouth daily. ??? B ooomkot-Z-xhzud acid (NEPHROCAPS) 1 MG capsule Take 1 capsule by mouth daily. ??? LANTUS VIAL 100 UNITS/ML SC SOLN Inject 40 Units Subcutaneous daily. ??? HumaLOG VIAL 100 UNITS/ML SOLN Inject 3-13 Units Subcutaneous 3 times daily (before meals). ??? sertraline (ZOLOFT) 100 MG tablet Take 100 mg by mouth daily. ??? zolpidem (AMBIEN) 10 MG tablet Take 10 mg by mouth nightly as needed. ??? tacrolimus 2 mg Oral BID IS ??? acetaminophen 650 mg Oral Once ??? diphenhydrAMINE 25-50 mg Oral Once Or ??? diphenhydrAMINE 25-50 mg Intravenous Once ??? methylPREDNISolone sodium succinate 65 mg Intravenous Once ??? anti-thymocyte globulin 75 mg Intravenous Central line Once ??? sodium chloride (PF) 10 mL Intravenous Q8H ??? clotrimazole 10 mg Buccal TID ??? pantoprazole 40 mg Oral Daily ??? sulfamethoxazole-trimethoprim 1 tablet Oral Daily ??? mycophenolate 1,000 mg Oral BID IS ??? valGANciclovir 450 mg Oral Twice Weekly ??? furosemide 80 mg Intravenous BID ??? senna-docusate 2 tablet Oral BID ??? insulin aspart Subcutaneous QAM AC ??? insulin aspart Subcutaneous Daily with lunch ??? insulin aspart Subcutaneous Daily with supper ??? sertraline 100 mg Oral Daily ??? metoprolol 12.5 mg Oral BID Family History Problem Relation Age of Onset ??? C.A.D. Father ??? Alzheimers Mother History Social History ??? Marital Status: Single Spouse Name: N/A Number of Children: N/A ??? 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 Seat Belt Yes Social History Narrative ??? No narrative on file Review Of Systems: A 4 point ROS was performed and negative other than that described in the HPI Objective: Vital signs: BP 139/73 Pulse 95 Temp(Src) 97.6 ??F (36.4 ??C) (Oral) Resp 16 Ht 1.829 m (6') Wt 129.729 kg (286 lb) BMI 38.78 kg/m2 SpO2 93% Intake/Output Summary (Last 24 hours) at 02/04/14 1104 Last data filed at 02/04/14 0800 Gross per 24 hour Intake 4174.26 ml Output 1965 ml Net 2209.26 ml Wt Readings from Last 3 Encounters: 02/04/14 129.729 kg (286 lb) 02/04/14 129.729 kg (286 lb) 02/10/12 123.152 kg (271 lb 8 oz) Gen: NAD Heent: NCAT, supple neck, and JVD wnl, no jvd Chest: ctab, no w/r Cardiac: irreg, irregular, no m/r/g Abd: soft, nt,nd bs+, drain in place posteriorly, bandage c/d/i Ext: wwp, left BKA, trace left LE edema, pulse 1+ Neuro: no focal deficits Skin: no rashes echymosies Psych: mood congruent LABS: CMP Recent Labs Lab 02/04/14 0549 02/03/14 2216 02/03/14 1852 02/03/14 1341 02/03/14 0538 02/02/14 2250 02/02/14 2209 02/02/14 1407 NA 142 -- -- -- -- 141 -- 138 137 < > 141 POTASSIUM 4.9 4.8 4.7 4.7 < > 4.4 < > 4.5 4.4 < > 4.2 CHLORIDE 107 -- -- -- -- 105 -- 104 -- -- 101 CO2 23 -- -- -- -- 20 -- 25 -- -- 26 ANIONGAP 12 -- -- -- -- 15 -- 10 -- -- 13 GLC 151* -- -- -- -- 170* -- 134* 116* < > 112* BUN 57* -- -- -- -- 49* -- 44* -- -- 42* CR 5.94* -- -- -- -- 6.38* -- 6.14* -- -- 6.03* GFRESTIMATED 10* -- -- -- -- 9* -- 9* -- -- 9* GFRESTBLACK 12* -- -- -- -- 11* -- 11* -- -- 11* ENEDINA 9.4 -- -- -- -- 9.1 -- 8.8 -- -- 9.9 MAG 2.1 -- -- -- -- 2.0 -- 1.8 -- -- -- PHOS 6.3* -- -- -- -- 4.7* -- 4.4 -- -- -- PROTTOTAL -- -- -- -- -- -- -- -- -- -- 7.5 ALBUMIN -- -- -- -- -- -- -- -- -- -- 4.2 BILITOTAL -- -- -- -- -- -- -- -- -- -- 0.7 ALKPHOS -- -- -- -- -- -- -- -- -- -- 88 AST -- -- -- -- -- -- -- -- -- -- 18 ALT -- -- -- -- -- -- -- -- -- -- 33 < > = values in this interval not displayed. CBC Recent Labs Lab 02/04/14 0549 02/03/14 2216 02/03/14 1852 02/03/14 1341 02/03/14 0538 02/02/14 2250 02/02/14 1407 WBC 13.8* -- -- -- -- 13.2* -- 8.2 -- 6.3 RBC 3.10* -- -- -- -- 3.20* -- 3.34* -- 3.71* HGB 9.5* 9.4* 9.6* 9.8* < > 9.9* < > 10.3* < > 11.5* HCT 28.7* -- -- -- -- 30.2* -- 30.9* -- 33.7* MCV 93 -- -- -- -- 94 -- 93 -- 91 MCH 30.6 -- -- -- -- 30.9 -- 30.8 -- 31.0 MCHC 33.1 -- -- -- -- 32.8 -- 33.3 -- 34.1 RDW 14.6 -- -- -- -- 14.5 -- 14.3 -- 14.0 PLT 91* -- -- -- -- 108* -- 79* -- 110* < > = values in this interval not displayed. INRNo results found for this basename: INR, in the last 168 hours Arterial Blood Gas Recent Labs Lab 02/02/14 2209 02/02/14 1840 O2PER 45 100% Lipids Recent Labs Lab 02/02/14 1407 CHOL 135 HDL 34* LDL 77 TSHNo results found for this basename: TSH, in the last 168 hours [id number] components found with this basename: HGBA1C, TroponinNo results found for this basename: TROPONIN, in the last 168 hours EKG: a-fib, no st changes, rate controlled reviewed ECHO: repeat pending [place] 01/2016 Normal study. 2. There is no evidence of relative ischemia during adenosine induced hyperemia. 3. Left ventricular size is moderately dilated at rest. Transient ischemic dilation of the left ventricle did not occur. 4. The left ventricular ejection fraction is 46 % and there are no regional wall motion abnormalities. Echo 2011: No significant valvular abnormalities were noted. Mild to moderate concentric wall thickening consistent with left ventricular hypertrophy is present. Global and regional left ventricular function is normal with an EF of 55-60%. Grade II of diastolic dysfunction ( pseudonormal pattern) Right ventricular function, chamber size, wall motion, and thickness are normal. Pulmonary artery systolic pressure cannot be assessed. The inferior vena cava is normal. No pericardial effusion is present. Imaging/Angiography: n/a Thank you for allowing us to participate in the care of this very pleasant patient. Please do not hesitate to call if you have further questions or concerns. Diego Guthrie was seen and examined with Dr. Rodriguez, attending physician, who agrees with the above assessment and plan. José Miguel Alvarez MD Retail Sales Assistant Pager: [phone] February 04, 2014 Kaitlynn Leon MD - 02/03/2014 9:30 AM CDT Nephrology Initial Consult February 03, 2014 Diego Guthrie Date of : 1950 Date of Admission:02/02/2014 Primary care provider: Momo Forbes Requesting physician: Migel Merchant MD ASSESSMENT AND RECOMMENDATIONS: 1. 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 We will monitor Induction with Thymo/Cellcept and steroids 2. Soft BP/bradycardia. CVP high , but may not be accurate due to the high position of IJ line; Received bolus of NS and lasix-per surgery; monitor UO 3. No known CAD, but high risk (CAD, renal failure); monitored by cardiology 4. Diabetes- on insulin drip 5. Slow graft function -no phos containing enemas REASON FOR CONSULT: DDKT HISTORY OF PRESENT ILLNESS: Diego Guthrie is a 63 year old with a h/o type 2 Dm, who received DDKT (DRUM SANDER SETTER) on 02/02/2014 donor kidney had severe atherosclerotic plaque which was cleaned. Kidney reperfused slowly. He was on dialysis since 2011. Currently on 3L of NS and maintaining adequate O2 Sats. BP is soft with systolic BPs around a 100-120. Bradycardic. Weight unchanged since yesterday. Seen by cards for pre-op clearance. PAST MEDICAL HISTORY: Reviewed with patient Past Medical History Diagnosis Date ??? Diabetes [...] eyes ??? 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 Auth Provider Calcium Carbonate-Vitamin D (CALCIUM + D PO) Take by mouth daily. Reported, Patient lisinopril (PRINIVIL,ZESTRIL) 40 MG tablet Take 40 mg by mouth 2 times daily. Reported, Patient METOPROLOL SUCCINATE PO Take by mouth daily. Reported, Patient aspirin 81 MG tablet Take 1 tablet by mouth daily. Reported, Patient B yybezmb-F-tdbri acid (NEPHROCAPS) 1 MG capsule Take 1 capsule by mouth daily. Reported, Patient LANTUS VIAL 100 UNITS/ML SC SOLN Inject 40 Units Subcutaneous daily. Reported, Patient HumaLOG VIAL 100 UNITS/ML SOLN Inject 3-13 Units Subcutaneous 3 times daily (before meals). Reported, Patient sertraline (ZOLOFT) 100 MG tablet Take 100 mg by mouth daily. Reported, Patient zolpidem (AMBIEN) 10 MG tablet Take 10 mg by mouth nightly as needed. Reported, Patient Current Meds ??? sodium chloride (PF) 10 mL Intravenous Q8H ??? [START ON 02/04/2014] senna-docusate 2 tablet Oral BID ??? clotrimazole 10 mg Buccal TID ??? pantoprazole 40 mg Oral Daily ??? metoprolol 5 mg Intravenous Q6H ??? sulfamethoxazole-trimethoprim 1 tablet Oral Daily ??? mycophenolate 1,000 mg Oral BID IS ??? [START ON 02/04/2014] valGANciclovir 450 mg Oral Twice Weekly ??? furosemide 80 mg Intravenous BID ??? acetaminophen 650 mg Oral Once ??? diphenhydrAMINE 25-50 mg Oral Once Or ??? diphenhydrAMINE 25-50 mg Intravenous Once ??? methylPREDNISolone sodium succinate 125 mg Intravenous Once ??? anti-thymocyte globulin 100 mg Intravenous Central line Once ??? HYDROmorphone Intravenous PHARMACY CUSTOMER CARE SPECIALIST Infusion Meds ??? IV fluid REPLACEMENT ONLY ??? insulin (regular) 3 Units/hr (02/03/14701) ??? IV fluid REPLACEMENT ONLY ??? IV fluid REPLACEMENT ONLY ??? IV fluid REPLACEMENT ONLY 125 mL/hr at 02/03/14701 ALLERGIES: No Known Allergies REVIEW OF SYSTEMS: A 10 point review of systems was negative except as noted above. SOCIAL HISTORY: History Social History ??? Marital Status: Single Spouse Name: N/A Number of Children: N/A ??? 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 Seat Belt Yes Social History Narrative ??? No narrative on file FAMILY MEDICAL HISTORY: Family History Problem Relation Age of Onset ??? C.A.D. Father ??? Alzheimers Mother PHYSICAL EXAM: Temp Av.9 ??F (36.6 ??C) Min: 97.5 ??F (36.4 ??C) Max: 98.4 ??F (36.9 ??C) Pulse Av.6 Min: 55 Max: 60 Resp Av.7 Min: 12 Max: 16 SpO2 Av.1 % Min: 95 % Max: 100 % CVP (mmHg): 8 mmHg BP 126/64 Pulse 55 Temp(Src) 97.8 ??F (36.6 ??C) (Oral) Resp 16 Ht 1.829 m (6') Wt 124 kg (273 lb 5.9 oz) BMI 37.07 kg/m2 SpO2 98% Date 02/03/14 07 - 02/04/1459 Shift 0637-6104 3380-0298 8668-3699 24 Hour Total I N T A K E I.V. 100 100 Shift Total (mL/kg) 100 (0.81) 100 (0.81) O U T P U T Urine 65 65 Shift Total (mL/kg) 65 (0.52) 65 (0.52) Weight (kg) 124 124 124 124 Admit Weight: 124.603 kg (274 lb 11.2 oz) (With prosthesis) GENERAL APPEARANCE: alert and no distress Head NC/AT EYES: no scleral icterus HENT: mouth without ulcers or lesions NECK: supple, no goiter Lymphatics: no cervical or supraclavicular LAD Pulmonary: lungs clear to auscultation with equal breath sounds bilaterally, no clubbing or cyanosis CV: regular rhythm, normal rate, no rub Edema - trace-1 plus edema GI: soft, nontender, normal bowel sounds, no HSM MS: no evidence of inflammation in joints, no muscle tenderness : Gibbs catheter SKIN: no rash, warm, dry NEURO: mentation intact and speech normal LABS: CMP Recent Labs Lab 02/03/14 0538 02/03/14 0118 02/02/14 2250 02/02/14 2209 02/02/14 1840 02/02/14 1407 NA 141 -- 138 137 141 141 POTASSIUM 4.4 4.7 4.5 4.4 3.7 4.2 CHLORIDE 105 -- 104 -- -- 101 CO2 20 -- 25 -- -- 26 ANIONGAP 15 -- 10 -- -- 13 GLC 170* -- 134* 116* 76 112* BUN 49* -- 44* -- -- 42* CR 6.38* -- 6.14* -- -- 6.03* GFRESTIMATED 9* -- 9* -- -- 9* GFRESTBLACK 11* -- 11* -- -- 11* ENEDINA 9.1 -- 8.8 -- -- 9.9 MAG 2.0 -- 1.8 -- -- -- PHOS 4.7* -- 4.4 -- -- -- PROTTOTAL -- -- -- -- -- 7.5 ALBUMIN -- -- -- -- -- 4.2 BILITOTAL -- -- -- -- -- 0.7 ALKPHOS -- -- -- -- -- 88 AST -- -- -- -- -- 18 ALT -- -- -- -- -- 33 CBC Recent Labs Lab 02/03/14 0538 02/03/14 0118 02/02/14 2250 02/02/149 02/02/14 1407 HGB 9.9* 9.8* 10.3* 10.0* < > 11.5* WBC 13.2* -- 8.2 -- -- 6.3 RBC 3.20* -- 3.34* -- -- 3.71* HCT 30.2* -- 30.9* -- -- 33.7* MCV 94 -- 93 -- -- 91 MCH 30.9 -- 30.8 -- -- 31.0 MCHC 32.8 -- 33.3 -- -- 34.1 RDW 14.5 -- 14.3 -- -- 14.0 PLT 108* -- 79* -- -- 110* < > = values in this interval not displayed. INRNo results found for this basename: INR, PTT, in the last 168 hours ABG Recent Labs Lab 02/02/14220802/02/14 1840 O2PER 45 100% URINE STUDIES Recent Labs Lab Test 02/02/14 1400 02/08/12 0706 COLOR Light Yellow Light Yellow APPEARANCE Clear Clear URINEGLC 70* 300* URINEBILI Negative Negative URINEKETONE Negative Negative SG 1.008 1.010 UBLD Negative Negative URINEPH 8.0* 7.5* PROTEIN 100* 300* NITRITE Negative Negative LEUKEST Negative Negative RBCU 0 <1 WBCU 1 1 Recent Labs Lab Test 02/02/14 1400 UTPG 2.15* PTH No results found for this basename: PTHI, in the last 87603 hours IRON STUDIES No results found for this basename: IRON, FEB, IRONSAT, THEE, in the last 51520 hours Deysi Alicea MD Jarad Cullen MD - 02/02/2014 4:13 PM CDTAssociated Order(s): CARDIOLOGY IP CONSULT INPATIENT CARDIOLOGY CONSULTATION Requesting Provider: Migel Merchant Indication for Consultation: Preoperative evaluation immediately prior to kidney transplantation. ASSESSMENT / PLAN Diego Guthrie is a 63M with a PMH significant for DMII - insulin dependent, HTN, HLD, diabetic neuropathy/retinopathy/nephropathy with ESRD on dialysis who presents for kidney transplant. Cardiology consulted for preoperative clearance. At this point, the patient has no cardiovascular symptoms and is able to exert himself without any problems. He did have stress test in 2011 that was normal. Patient has DM and ESRD that elevate his risk for any procedure. He is at moderate operative risk and is undergoing a moderate risk non-cardiac procedure. There are no further interventions at this time to optimize his risk. HPI: Diego Guthrie is a 63M with a PMH significant for DMII - insulin dependent, HTN, HLD, diabetic neuropathy/retinopathy/nephropathy with ESRD on dialysis who presents for kidney transplant. Cardiology consulted for preoperative clearance prior to transplant which is happening at 5 pm today. He last saw cardiology for preoperative Arthur in 2011. He had normal stress test then and echo was normal EF with LVH. At this point patient has no pain or shortness of breath. He walks every day and is able to climb more then 2-3 flights of stairs without any chest pain and shortness of breath. No jose edema , palpitations , light headedness or dizziness. PAST MEDICAL HISTORY: Past Medical History Diagnosis Date ??? Diabetes mellitus type II ??? HTN (hypertension) ??? Hyperlipidemia ??? Diabetic peripheral neuropathy 2001 on insulin x 4 years ??? Retinopathy due to secondary diabetes mellitus ??? Gout ??? Anemia ??? Thrombocytopenia ??? Depression ??? Dialysis patient 08/30/2011 CURRENT MEDICATIONS: Current Facility-Administered Medications Medication ??? methylPREDNISolone sodium succinate (Solu-MEDROL) injection 500 mg ??? anti-thymocyte globulin (THYMOGLOBULIN - Rabbit) 100 mg in NaCl 0.9% IVPB ??? cefUROXime (ZINACEF) 1.5 g vial to attach to IVPB ??? mycophenolate (CELLCEPT) 1,000 mg in D5W IVPB HOME MEDICATIONS: Prior to Admission medications Medication Sig Start Date End Date Taking? Authorizing Provider Calcium Carbonate-Vitamin D (CALCIUM + D PO) Take by mouth daily. Reported, Patient lisinopril (PRINIVIL,ZESTRIL) 40 MG tablet Take 40 mg by mouth 2 times daily. Reported, Patient METOPROLOL SUCCINATE PO Take by mouth daily. Reported, Patient aspirin 81 MG tablet Take 1 tablet by mouth daily. Reported, Patient B agudfyh-H-wwdyp acid (NEPHROCAPS) 1 MG capsule Take 1 capsule by mouth daily. Reported, Patient LANTUS VIAL 100 UNITS/ML SC SOLN Inject 40 Units Subcutaneous daily. Reported, Patient HumaLOG VIAL 100 UNITS/ML SOLN Inject 3-13 Units Subcutaneous 3 times daily (before meals). Reported, Patient sertraline (ZOLOFT) 100 MG tablet Take 100 mg by mouth daily. Reported, Patient zolpidem (AMBIEN) 10 MG tablet Take 10 mg by mouth nightly as needed. Reported, Patient PAST SURGICAL HISTORY: Past Surgical History Procedure Laterality Date ??? 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 Avf right forearm ??? Laser surgery of eye both eyes ??? Cataract iol, rt/lt both eyes ALLERGIES Review of patient's allergies indicates no known allergies. FAMILY HX: Family History Problem Relation Age of Onset ??? C.A.D. Father ??? Alzheimers Mother SOCIAL HX: History Social History ??? Marital Status: Single Spouse Name: N/A Number of Children: N/A ??? 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 Seat Belt Yes Social History Narrative ??? No narrative on file ROS: 10 point review of system done and negative other then noted in the HPI VITAL SIGNS: BP 139/72 Pulse 55 Temp(Src) 98 ??F (36.7 ??C) (Oral) Resp 16 Ht 1.829 m (6') Wt 124.603 kg (274 lb 11.2 oz) BMI 37.25 kg/m2 SpO2 97% Body mass index is 37.25 kg/(m^2). Intake/Output Summary (Last 24 hours) at 02/02/14 1624 Last data filed at 02/02/14 1600 Gross per 24 hour Intake 0 ml Output 0 ml Net 0 ml PHYSICAL EXAM Diego Guthrie is a 63 year old male Constitutional: in no acute distress. Alert and oriented x 3 HEENT: PERRL, EOMI. Neck: JVP normal. Lungs: CTA. Cor: RRR. Normal S1 and S2. No murmur, rub, or gallop. Abd: Soft, nontender, nondistended. NABS. No pulsatile mass. Extremities: No C/C/E. LABS CMP Recent Labs Lab 02/02/14 1407 NA 141 POTASSIUM 4.2 CHLORIDE 101 CO2 26 ANIONGAP 13 GLC 112* BUN 42* CR 6.03* GFRESTIMATED 9* GFRESTBLACK 11* ENEDINA 9.9 PROTTOTAL 7.5 ALBUMIN 4.2 BILITOTAL 0.7 ALKPHOS 88 AST 18 ALT 33 CBC Recent Labs Lab 02/02/14 1407 WBC 6.3 RBC 3.71* HGB 11.5* HCT 33.7* MCV 91 MCH 31.0 MCHC 34.1 RDW 14.0 PLT 110* EKG: NSR with no ST-T wave changes. ECHOCARDIOGRAM: No significant valvular abnormalities were noted. Mild to moderate concentric wall thickening consistent with left ventricular hypertrophy is present. Global and regional left ventricular function is normal with an EF of 55-60%. Grade II of diastolic dysfunction ( pseudonormal pattern) Right ventricular function, chamber size, wall motion, and thickness are normal. Pulmonary artery systolic pressure cannot be assessed. The inferior vena cava is normal. No pericardial effusion is present. STRESS TEST: 1. Normal study. 2. There is no evidence of relative ischemia during adenosine induced hyperemia. 3. Left ventricular size is moderately dilated at rest. Transient ischemic dilation of the left ventricle did not occur. 4. The left ventricular ejection fraction is 46 % and there are no regional wall motion abnormalities. This plan was discussed with ordering service. Thank you for involving us in the care of this patient. Patient was seen and staffed with Dr. Stiles is the attending physician and agrees with the assessment and plan. Alvin Diego Cardiovascular Disease Fellow [phone] Patient seen and examined by me with the Fellow. I have reviewed pertinent laboratory, echocardiographic, imaging, and cardiac catheterization results. I agree with the plan of care as described in this note. Briefly,according to the ACC/AHA guidelines for preoperative evaluation, the patient has intermediate clinical predictors of increased perioperative cardiovascular risk. He is undergoing an intermediate risk noncardiac surgical procedure with a risk generally reported at <5%. The patient canproceed with surgery without further diagnostic evaluation from a cardiovascular point view. Jarad Cullen MD, PhD Jarad Cullen MD, PhD [phone] documented in this encounter Nursing Notes Gretta Mary RN - 02/02/2014 11:[address] Owens with Transplant Surgery notified of stat lab results. Magnesium replaced. Dr. Blank with Anesthesia reviewed chest x-ray. CVC not deep enough to give accurate CVP readings, however all lumens aspirate blood well. Patient is ok to transfer to unit 6B per [facility]. documented in this encounter Miscellaneous Notes Plan of Care - Amanda Hernandez RN - 02/08/2014 3:44 PM CDT Problem: IP GENERAL POC-ADULT,OB,BEHAVIORAL FVCPM Goal: Individualization/Patient-Specific Goal (Adult,OB,Behavioral The patient and/or their sales representative uniforms will achieve their patient-specific goals related to the plan of care. The patient-specific goals include: 1. Pt will remain hemodynamically stable 2. Pt will have adequate urine output 3. Pt will be free of falls. RD Patient will verbalize understanding of 3 important aspects of post-transplant diet guidelines. PO intake >50% meals TID once diet adv. Outcome: Adequate for Discharge Date Met: 02/08/14 Discharge orders written and reviewed with patient and significant other. Has all needed meds. All teaching done. Med. Card updated. [facility] Left facility accompanied by s.gumaro at 1600. Plan of Care - Amanda Hernandez RN - 02/08/2014 2:13 PM CDT Problem: IP GENERAL POC-ADULT,OB,BEHAVIORAL FVCPM Goal: Individualization/Patient-Specific Goal (Adult,OB,Behavioral The patient and/or their sales representative uniforms will achieve their patient-specific goals related to the plan of care. The patient-specific goals include: 1. Pt will remain hemodynamically stable 2. Pt will have adequate urine output 3. Pt will be free of falls. RD Patient will verbalize understanding of 3 important aspects of post-transplant diet guidelines. PO intake >50% meals TID once diet adv. Outcome: Improving VSS. BGs requiring small sliding scale and carb. Coverage insulin. Denies need for pain meds. Went to med. Class this AM. Had been previously but slept thru class. Refused to go to afternoon class stating that he had already been. Incisional modesta intact with small amt. Leakage. Abd. Pad in place. Rt MARGARET drain putting out small amt. Serosanguinous drainage. To go home with drain. Teaching about MARGARET and incision to be done with s.o Tete. Voiding in toilet. Eating well. To leave later today. Plan of Care - Reina Kenny, PT - 02/08/2014 10:48 AM CDT Problem: General Rehab Plan of Care Goal: Physical Therapy Goals By 02/11/14, with stable vitals, following abdominal precautions, pt will... 1. Roll and/or scoot in bed, independent (goal met 02/08/14) 2. Supine <> sit with head of bed flat, no rail, independent ( goal met 02/08/14 ) 3. Sit <> stand with no AD, independent (goal met 02/08/14) 4. Ambulate 250 ft with no AD, and no loss of balance during balance challenges, independent (goal partially met, 270 ft with SBA-IND, no balance challenges with 1LOB self- corrected; pt declines use of AD to improve stability) 5. Independently verbalize abdominal precautions (goal met 02/08/14) Frequency: 7x/wk Outcome: Therapy, progress toward functional goals as expected PT/7a: pt is functionally IND with transfers, requiring SBA-IND for ambulation. Improved fit of LLE prosthesis noted today. Pt would benefit from further gait training (use of AD), balance training. However, pt currently is not interested in use of AD. Pt reports no mobility concerns re: return home. Recommend pt disch home with friend assisting as needed. *If pt continues to have gait and balance impairments post-discharge, pt may benefit from OP PT to address these deficits. Physical Therapy Discharge Summary Reason for therapy discharge: All goals and outcomes met, no futher needs identified. Progress towards therapy goal(s): Goals met. Gait goal partially met - however, pt declines further gait training intervention with ADto improve his stability. Therapy recommendation(s): Continue home exercise program. Ambulation for functional endurance training; also adhering to abdominal precautions for 6-8 weeks. Plan of Care - Annmarie Colby RN - 02/08/2014 5:02 AM CDT Problem: IP GENERAL POC-ADULT,OB,BEHAVIORAL FVCPM Goal: Individualization/Patient-Specific Goal (Adult,OB,Behavioral The patient and/or their sales representative uniforms will achieve their patient-specific goals related to the plan of care. The patient-specific goals include: 1. Pt will remain hemodynamically stable 2. Pt will have adequate urine output 3. Pt will be free of falls. RD Patient will verbalize understanding of 3 important aspects of post-transplant diet guidelines. PO intake >50% meals TID once diet adv. Outcome: No Change Afeb., BP: 124-160's/80's-90's, HR: 70's-80's,ovss. Pt. Denies pain. Zofran x1 for dry heaves. Voiding adequate amounts, no stools this shift. MARGARET: 30cc serosang. Incision covered w/ ABDs & c/d/i. Pt. took 2 walks & sat in chair for about an hour; slept little between cares. Pt. has classes at 11am & 1pm & then possible discharge home today with drain. Plan of Care - Lashaun Braswell RN - 02/07/2014 5:12 PM CDT Problem: IP GENERAL POC-ADULT,OB,BEHAVIORAL FVCPM Goal: Individualization/Patient-Specific Goal (Adult,OB,Behavioral The patient and/or their sales representative uniforms will achieve their patient-specific goals related to the plan of care. The patient-specific goals include: 1. Pt will remain hemodynamically stable 2. Pt will have adequate urine output 3. Pt will be free of falls. RD Patient will verbalize understanding of 3 important aspects of post-transplant diet guidelines. PO intake >50% meals TID once diet adv. Outcome: Improving Latrell has been afebrile w stable VS on room air. Incisional pain reported tolerable and pt declines pain meds. Pt tolerating regular diet w no nausea and fair appetite. BGs elevated, treated w insulin per OCT. Pt voiding good amounts. Suppository given, pt had two large BMs afterwards. While on the toilet pt was straining slightly and had a large amount of blood drain from hematoma under his incision. Pt showered afterwards, MARGARET dressing changed and pressure dressing placed over incision. Hematoma appears to have decreased significantly in size. Education given on incisional and MARGARET drain care. Pt willgo to classes again tomorrow at 11 & 1. Med card and lab book updated. Pt up walking w therapy, a ssist of one needed d/t slighty dizziness and pts prosthesis does not completely fit yet. Girlfriendat bedside and supportive. Plan for d/c to home tomorrow after classes. Plan of Care - Reina Kenny, PT - 02/07/2014 10:24 AM CDT Problem: General Rehab Plan of Care Goal: Physical Therapy Goals By 02/11/14, with stable vitals, following abdominal precautions, pt will... 1. Roll and/or scoot in bed, independent ( min A with rail 02/04/14) 2. Supine <> sit with head of bed flat, no rail, independent ( mod A 02/06 ) 3. Sit <> stand with no AD, independent (progressing, CGA 02/07/14) 4. Ambulate 250 ft with no AD, and no loss of balance during balance challenges, independent (progressing, 210 ft x2 without AD with SBA-CGA with 2 LOB noted without balance challenges on 02/07/14) 5. Independently verbalize abdominal precautions (Verbalizes 1 precaution, re- education provided 02/06/14) Frequency: 7x/wk Outcome: Therapy, progress towards functional goals is fair PT/7a: pt with L below knee amputation - swelling noted in residual limb affecting fit of LLE prosthesis. Pt with instability noted when standing and ambulating with LLE prosthesis donned - pt would benefit from use of AD to improve his stability - however pt declines use of AD. Recommend RN/NST staff assist pt with use of gait belt donned at all times 2/2 pt's impaired balance and risk for falls. Recommend pt disch home with A and OP PT to address his gait and balance deficits. Plan of Care - Inez Luevano - 02/07/2014 9:07 AM CDT Problem: IP GENERAL POC-ADULT,OB,BEHAVIORAL FVCPM Goal: Individualization/Patient-Specific Goal (Adult,OB,Behavioral CLINICAL NUTRITION SERVICES Patient eating well (75-100% of meals) on Regular diet. Has been educated on post-transplant diet guidelines 02/03 and 02/05. Entered discharge instructions -> Diet recommendations post-transplant: Heart healthy dietary habits long term care administrator (low saturated/trans fat, low sodium). High protein diet x 8 weeks. Practice food safety precautions - no fish/seafood x 3 weeks. Inez Luevano MS, RD, LD Pager [phone] Pharmacy-Immunosuppression Monitoring - Em Vasquez [facility] - 02/07/2014 9:06 AM CDT Tacrolimus Monitoring Note Current dose = 2 mg PO Q12H stated 02/04/14 in AM Results: Tacrolimus 12.7 mcg/L (13hr trough) Goal trough level = 8-10 mcg/L Current trough level is above the desired range. The patient is currently receiving medications that can significantly interact with Tacrolimus, and they are: Clotrimazole, . Plan: Recommend change regimen to 1.5 mg PO Q12H Recheck trough level in 2-3 days. Pharmacy Team will continue to follow. Em Vasquez, Pharm.D., [facility] Pager [phone] Plan of Care - Annmarie Colby RN - 02/07/2014 5:11 AM CDT Problem: IP GENERAL POC-ADULT,OB,BEHAVIORAL FVCPM Goal: Individualization/Patient-Specific Goal (Adult,OB,Behavioral The patient and/or their sales representative uniforms will achieve their patient-specific goals related to the plan of care. The patient-specific goals include: 1. Pt will remain hemodynamically stable 2. Pt will have adequate urine output 3. Pt will be free of falls. RD Patient will verbalize understanding of 3 important aspects of post-transplant diet guidelines. PO intake >50% meals TID once diet adv. Outcome: No Change Afeb., ovss. B. Pt. continues to be in A-fib. & plan for pt. To start coumadin today. Pt. denied pain or nausea. Pt's incision was leaking large amount blood soaking gown & linens. On-call notified (see provider notification) & assessed pt. & ordered stat H&H. Hgb 8.5 from 8.8. Pt's incision cleaned & ABDs applied over incision. No further bleeding noted. Pt. voided goodamounts, no stools this shift. Pt. slept well between cares. Provider Notification - Annmarie Colby RN - 02/07/2014 4:02 AM CDT On-call, Dr. Calixto, notified of pt's incision leaking large amount blood with linens & gown soaked with blood. Pt. felt slight lightheadedness when up to BR. Vitals stable, afeb. MD assessed pt. & ordered H & H. Pt's incision cleaned & covered with ABDs, linens changed. Will notify MDwith lab result & any changes. Plan of Care - Lashaun Braswell RN - 02/06/2014 6:50 PM CDT Problem: IP GENERAL POC-ADULT,OB,BEHAVIORAL FVCPM Goal: Individualization/Patient-Specific Goal (Adult,OB,Behavioral The patient and/or their sales representative uniforms will achieve their patient-specific goals related to the plan of care. The patient-specific goals include: 1. Pt will remain hemodynamically stable 2. Pt will have adequate urine output 3. Pt will be free of falls. RD Patient will verbalize understanding of 3 important aspects of post-transplant diet guidelines. PO intake >50% meals TID once diet adv. Outcome: Improving Latrell transferred to from at 1600 w all belongings. Afebrile, VSS on room air. Pt c/o mild incisional pain and mild nausea. Tolerated regular diet w good appetite. Thymo infusing. MARGARET w moderate amount of serosanguinous output. Good urine output. Passing gas, no BM since surgery. Hemoglobin recheck8.8. Incisional hematoma appears unchanged since transfer, c/d/i. Pt up in the chair for dinner. Fluids encouraged. at bedside and very supportive. Will continue to monitor and notify team w concerns. Plan of Care - Ganesh Covarrubias RN - 02/06/2014 2:59 PM CDT Pt alert and oriented. Remains in Afib/Flutter; Pt returned from ECHO lab, REFUGIO and cardioversion notdone 2/2 pt off heparin and had bleeding at incision site this am. Pt became dizzy when getting out of bed,- hypoglycemia, + orthostatics, oral fluids encouraged. With increased fluid intake, urine color is becoming plate glass installer( tea color/bloody- >dark sy/tea color). Incisional pain relieved with oxycodone. At the end of this shift pt c/o abdominal fullness/tightness, incisional hematoma has increased in size, MD aware. Fair appetite, insulin per sliding scale. Passing flatus, hypoactive BS, no BMs this shift. MARGARET in place, total output 58/ 8hrs. Plan for transfer to . Provider Notification - Ganesh Covarrubias RN - 02/06/2014 2:57 PM CDT Mr. Guthrie complained of abdominal fullness/tightness, on assessment hematoma at incision site has increased in size; Bladder scan for PVR [address] Hernandes notified. Plan of Care - Yesenia Rodriguez, PT - 02/06/2014 12:42 PM CDT Problem: General Rehab Plan of Care Goal: Physical Therapy Goals The patient and/or their sales representative uniforms will achieve their patient-specific goals related to the plan of care. The patient-specific goals include: By 02/11/14, with stable vitals, following abdominal precautions, pt will... 1. Roll and/or scoot in bed, independent - min A with rail 02/04/14 2. Supine <> sit with head of bed flat, no rail, independent - mod A 02/06 3. Sit <> stand with no AD, independent - CGA 02/06/14 4. Ambulate 250 ft with no AD, and no loss of balance during balance challenges, independent - 250??? with no UE support on IV pole min A for 3x LOB 02/05/14 5. Independently verbalize abdominal precautions - Verbalizes 1 precaution, re- education provided 02/06/14 Frequency: 7x/wk PT 6B: Pt transfers supine>sitting with mod A, donns left prosthesis with min A. Pt transfers with CGA, ambulates in/out of bathroom, CGA. Pt presents with increased unsteadiness today, gait belt donned. Pt ambulated 60 ft with no AD, CGA on gait belt. Pt reports increased dizziness/feeling faint and required sitting in wheelchair/ride back to room. Orthostatic hypotension negative upon return to room, RN notified. Recommend use of gait belt for all mobility out of bed 2/2 increased unsteadiness for safety. Recommend: Anticipate home with assist, may benefit from OP PT to address balance deficits. Plan of Care - Yesenia Rodriguez, PT - 02/06/2014 10:09 AM CDT Problem: General Rehab Plan of Care Goal: Physical Therapy Goals The patient and/or their sales representative uniforms will achieve their patient-specific goals related to the plan of care. The patient-specific goals include: By 02/11/14, with stable vitals, following abdominal precautions, pt will... 1. Roll and/or scoot in bed, independent - min A with rail 02/04/14 2. Supine <> sit with head of bed flat, no rail, independent - min A 02/04/14 3. Sit <> stand with no AD, independent - CGA 02/04/14 4. Ambulate 250 ft with no AD, and no loss of balance during balance challenges, independent - 250??? with no UE support on IV pole min A for 3x LOB 02/05/14 5. Independently verbalize abdominal precautions - education 02/04/14 Frequency: 7x/wk PT 6B: CX- Pt at ECHO this AM. Will see this PM if appropriate. Plan of Care - Farideh Hodgson RN - 02/06/2014 7:06 AM CDT Problem: IP GENERAL POC-ADULT,OB,BEHAVIORAL FVCPM Goal: Individualization/Patient-Specific Goal (Adult,OB,Behavioral The patient and/or their sales representative uniforms will achieve their patient-specific goals related to the plan of care. The patient-specific goals include: 1. Pt will remain hemodynamically stable 2. Pt will have adequate urine output 3. Pt will be free of falls. RD Patient will verbalize understanding of 3 important aspects of post-transplant diet guidelines. PO intake >50% meals TID once diet adv. Pt slept between cares, Vs stable 130's-160's HR 70-80's in afib/aflutter, denies pain all night didtake oxycodone at bedtime 5mg, Incision with slight dried drainage throughout the night, dressing changed at 2200 on evenings. Central IJ dressing changed. See previous note, PTT critical high 154, heparin gtt off. Pt urinating does better up to restroom but needs assist due to prothesis. Blood sugar 0315 am check was 216. Margaret drain with 130 output overnight. Plan for cardioversion and REFUGIO today, Resident Dr. Adeline Lutz here to see pt due to bleeding, md will check with cardiology re: tests and heparin, continue with plan of care. Provider Notification - Farideh Hodgson RN - 02/06/2014 6:[address] Hernandes notified that pt ptt critical high 154, no new changes, continue with plan of care. Provider Notification - Farideh Hodgson RN - 02/06/2014 6:[address] Adeline Lutz notified and came to see pt that awoke to urinate and had large red blood on gown and bed, heparin gtt stopped. Pt denies pain or lightheadedness or dizziness. Lab just was in room and meryl blood. Bp stable, denies pain, up with sba to restroom unable to urinate at bedside, 300cc drk am marilyn vs slightly bloody appearing, rn showed md urine. MARGARET bulb has 100cc output with another 30cc after emptying. No visual signs of oozing noted, does appear to be a hematoma under modesta at upper part of incision, none on lower. Pressure dressing applied to site, md will return shortly to check and rn will reassess, continue with plan of care. Plan of Care - Tasia Love RN - 02/05/2014 6:41 PM CDT Problem: IP GENERAL POC-ADULT,OB,BEHAVIORAL FVCPM Goal: Individualization/Patient-Specific Goal (Adult,OB,Behavioral The patient and/or their sales representative uniforms will achieve their patient-specific goals related to the plan of care. The patient-specific goals include: 1. Pt will remain hemodynamically stable 2. Pt will have adequate urine output 3. Pt will be free of falls. RD Patient will verbalize understanding of 3 important aspects of post-transplant diet guidelines. PO intake >50% meals TID once diet adv. Pt a.ox 4. Vss. Intact neuros, no difficulty finding words. A fib 60-70's. Heparin started @ 1800. Insulin drip stopped @ 1500 - on SS and CC - achs and 0200 blood sugars. Coumadin started today. Foleypulled @ 1500 - no void yet. 2 L nc while sleeping. thymo given today. Plan to be NPO @ 0000 - cardioversion and REFUGIO in AM 02/06. Dressing placed over modesta, some serosangeous leaking. MARGARET put out 50 in 8 hours. No pain medication needed. Will continue to monitor. Plan of Care - Airam Lawson, PT - 02/05/2014 3:21 PM CDT Problem: General Rehab Plan of Care Goal: Physical Therapy Goals The patient and/or their sales representative uniforms will achieve their patient-specific goals related to the plan of care. The patient-specific goals include: By 02/11/14, with stable vitals, following abdominal precautions, pt will... 1. Roll and/or scoot in bed, independent - min A with rail 02/04/14 2. Supine <> sit with head of bed flat, no rail, independent - min A 02/04/14 3. Sit <> stand with no AD, independent - CGA 02/04/14 4. Ambulate 250 ft with no AD, and no loss of balance during balance challenges, independent - 250??? with no UE support on IV pole min A for 3x LOB 02/05/14 5. Independently verbalize abdominal precautions - education 02/04/14 Frequency: 7x/wk Outcome: Therapy, progress toward functional goals as expected PT 6B: Pt tolerated session very well this date. Ambulated 250' x 2 and progressed off using an AD. 3x LOB however. Pt may benefit from a cane. Recommend home with assist at this time. Pharmacy - Cayetano Olivera [facility] - 02/05/2014 12:26 PM CDT Visited 02/05/2014 in hospital room prior to discharge to review medications, review discharge process and review specialty pharmacy program. Med Review: Reviewed patient's medications and medical conditions. Patient would like to use [facility] to manage all medications. Medcard: Went over med card with Diego. Informed him that med card was not complete and another anti-rejection medication will be added as well as non- transplant medications. Pain: Diego states that while laying his pain is a 2/10. When moving it increases to a 5-6/10. Discharge review: Reviewed the discharge process with Diego. Specialty Pharmacy review: Discussed the benefits of [facility] and Diego has enrolled. Also gave him supplies (blood pressure cuff, thermometer, and pill box) Other concerns: No other concerns at this time. No further questions for this pharmacist. Inez Cox, Student Pharmacist Psychiatric Social Worker Supervisor [facility] [address] [place] [id number] Cayetano Olivera, Pharmacist [facility] [phone] Electronically signed by Cayetano Olivera [facility] at 02/05/2014 1:26 PM CDT Pharmacy-Anticoagulation Service - Teresa Wright [facility] - 02/05/2014 11:29 AM CDT Clinical Pharmacy- Warfarin Dosing Consult Pharmacy has been consulted to manage this patient???s warfarin therapy. Diego Guthrie is new to warfarin therapy. The warfarin is indicated for Atrial fibrillation. Patient???s goal INR is: 2-3. Current medicationsthat may interact with warfarin and/or INR: acetaminophen, pantoprazole, bactrim, and heparin. Today's INR is 1.24. Recommend warfarin 5 mg today. Pharmacy will monitor Diego Guthrie daily and order warfarin doses to achieve specified INR goal. Please contact pharmacy as soon as possible if the warfarin needs to be held for a procedure or if the INR goals change. Plan of Care - Pau Alvarez - 02/05/2014 6:56 AM CDT Problem: IP GENERAL POC-ADULT,OB,BEHAVIORAL FVCPM Goal: Individualization/Patient-Specific Goal (Adult,OB,Behavioral The patient and/or their sales representative uniforms will achieve their patient-specific goals related to the plan of care. The patient-specific goals include: 1. Pt will remain hemodynamically stable 2. Pt will have adequate urine output 3. Pt will be free of falls. RD Patient will verbalize understanding of 3 important aspects of post-transplant diet guidelines. PO intake >50% meals TID once diet adv. Outcome: No Change VSS, HR 60s-80s Afib, on 2L while sleeping, desats into low-mid 80s, c/o incisional pain with movement or coughing. Oxycodone given x1. Patient's significant other reported to RN that patient did not seem to be himself since about 1pm after returning from transplant class. She reported he was very sleepy and when talking to his brother he had difficulty getting words out, somewhat slurred speech, melonie hard time making full sentences. When rfp writer came on shift at 8pm patient was lethargic and appeared off at beginning of shift, able to answer orientation questions correctly and no focal neuro deficits noted, however had some word finding difficulties. MD notified and came to bedside. No new orders given. Insulin drip on algorithm 2, 1-4 units/hr. BS hypo active and passing a little gas. Incision CDI with modesta. Large UOP in gibbs. MARGARET in place with small amount of serosanguinous drainage. Will continue current plan of care and update MDs with any changes. Plan of Care - Janet Pratt RN - 02/04/2014 6:35 PM CDT Problem: IP GENERAL POC-ADULT,OB,BEHAVIORAL FVCPM Goal: Individualization/Patient-Specific Goal (Adult,OB,Behavioral The patient and/or their sales representative uniforms will achieve their patient-specific goals related to the plan of care. The patient-specific goals include: 1. Pt will remain hemodynamically stable 2. Pt will have adequate urine output 3. Pt will be free of falls. RD Patient will verbalize understanding of 3 important aspects of post-transplant diet guidelines. PO intake >50% meals TID once diet adv. Pt AOx4, VSS, afebrile, on RA, sats > 95%. HR 60-80's afib, pt asymptomatic. Echo completed. Pt attended two transplant classes with [employer]. Pt denies pain. Up with assist of 1, pt slightly unsteady on feet, pt states that he has a new prosthetic and it needs to be worn in. Insulin gtt infusing, Q 1 hr BS checks. MARGARET with serosanguinous output. Gibbs intact. Will continue to monitor per plan of cares. Plan of Care - Angela Wilder, PT - 02/04/2014 5:01 PM CDT Problem: General Rehab Plan of Care Goal: Physical Therapy Goals The patient and/or their sales representative uniforms will achieve their patient-specific goals related to the plan of care. The patient-specific goals include: By 02/11/14, with stable vitals, following abdominal precautions, pt will... 1. Roll and/or scoot in bed, independent - min A with rail 02/04/14 2. Supine <> sit with head of bed flat, no rail, independent - min A 02/04/14 3. Sit <> stand with no AD, independent - CGA 02/04/14 4. Ambulate 250 ft with no AD, and no loss of balance during balance challenges, independent - 450??? with BUE support on IV pole CGA-SBA 02/04/14 5. Independently verbalize abdominal precautions - education 02/04/14 Frequency: 7x/wk PT 6B: Evaluation completed and treatment initiated. Pt educated on abdominal precautions. Completedbed mobility with min-mod A with cues. Pt ambulated 450' with BUE support on IV pole and CGA. Overall, tolerated well. Pt with difficulty with prosthetic fit 2/2 to increased edema. Pt may benefit fromedema consult if does not decrease. Discharge recommendation: home with assist for heavy lifting Plan of Care - Josseline Almendarez RN - 02/04/2014 3:09 PM CDT Problem: IP GENERAL POC-ADULT,OB,BEHAVIORAL FVCPM Goal: Discharge Planning (Adult, OB, Behavioral, Peds) Latrell came with [employer] to transplant med and dc classes. They were attentive and they both asked a couple of questions. Called Specialty pharmacy. Plan of Care - Janet Pratt RN - 02/04/2014 12:00 PM CDT Received pt from around 1200, pt came from transplant course via wheelchair, also accompanied by friend. Pt transferred to chair, VSS, court recording monitor on, oriented to room. Pharmacy-Admission Medication History - Teresa Wright, [facility] - 02/04/2014 11:54 AM CDT Admission medication history interview status for the 02/02/2014 admission is complete. See [facility] admission navigator for allergy information, prior to admission medications and immunization status. 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 Auth Provider VITAMIN D, CHOLECALCIFEROL, PO Take 1,000 Units by mouth daily Past Week at Unknown time Yes Dummy, Bfp User Calcium Carbonate-Vitamin D (CALCIUM + D PO) Take by mouth daily. Past Week at Unknown time Yes Reported, Patient lisinopril (PRINIVIL,ZESTRIL) 40 MG tablet Take 40 mg by mouth once Past Week at Unknown time Yes Reported, Patient METOPROLOL SUCCINATE PO Take 100 mg by mouth daily Past Week at Unknown time Yes Reported, Patient aspirin 81 MG tablet Take 1 tablet by mouth daily. Past Week at Unknown time Yes Reported, Patient B mhwqebs-E-nrwek acid (NEPHROCAPS) 1 MG capsule Take 1 capsule by mouth daily. Past Week at Unknowntime Yes Reported, Patient LANTUS VIAL 100 UNITS/ML SC SOLN Inject 40 Units Subcutaneous daily. Past Week at Unknown time Yes Reported, Patient HumaLOG VIAL 100 UNITS/ML SOLN Inject 3-13 Units Subcutaneous 3 times daily (before meals). Past Week at Unknown time Yes Reported, Patient sertraline (ZOLOFT) 100 MG tablet Take 100 mg by mouth daily. Past Week at Unknown time Yes Reported, Patient zolpidem (AMBIEN) 10 MG tablet Take 10 mg by mouth nightly as needed. Past Week at Unknown time Yes Reported, Patient Pneumococcal and influenza vaccine history documented: yes (patient received both) Medication reconciliation/reorder completed by provider prior to medication history? Yes Time spent in this activity: 25 mins Plan of Care - Martina Burciaga RN - 02/04/2014 11:23 AM CDT Problem: IP GENERAL POC-ADULT,OB,BEHAVIORAL FVCPM Goal: Individualization/Patient-Specific Goal (Adult,OB,Behavioral The patient and/or their sales representative uniforms will achieve their patient-specific goals related to the plan of care. The patient-specific goals include: 1. Pt will remain hemodynamically stable 2. Pt will have adequate urine output 3. Pt will be free of falls. RD Patient will verbalize understanding of 3 important aspects of post-transplant diet guidelines. PO intake >50% meals TID once diet adv. Patient's B/P WNL, afebrile, HR 70's-90's, EKG done at 0700 this AM showing new onset Atrial fibrillation; MD's notified, Troponin ordered; results negative. Patient got 5mg of IV metoprolol X 3 doses over 45 minutes and remains in A-fib via classroom monitor. Repeat EKG around 1000 showed continued Afibl. Cardiology consulted. Patient is asymptomatic; no complaints of rapid heart rate, chest pain, SOB. Patient resting comfortably in bed and sitting at the side of the bed. Ate breakfast with no issues; carbs covered with Novolog. Patient remains on insulin drip at 3-5 units/hour; to be converted to SQ insulin today. IV fluids discontinued. Patient has class at 1100 and 1300 with his friend. Will transfer to for cardiac monitoring/telemetery. Will call report and send patient to after 1200 class. Plan of Care - Angela Wilder, PT - 02/04/2014 8:55 AM CDT Problem: General Rehab Plan of Care Goal: Physical Therapy Goals The patient and/or their sales representative uniforms will achieve their patient-specific goals related to the plan of care. The patient-specific goals include: PT 7A: HOLD for AM per RN - pt with a-fib this morning. Plan of Care - Alisson Diane RN - 02/04/2014 6:45 AM CDT Problem: IP GENERAL POC-ADULT,OB,BEHAVIORAL FVCPM Goal: Individualization/Patient-Specific Goal (Adult,OB,Behavioral The patient and/or their sales representative uniforms will achieve their patient-specific goals related to the plan of care. The patient-specific goals include: 1. Pt will remain hemodynamically stable 2. Pt will have adequate urine output 3. Pt will be free of falls. RD Patient will verbalize understanding of 3 important aspects of post-transplant diet guidelines. PO intake >50% meals TID once diet adv. Outcome: Improving Pt's thymoglobulin finished about 1230am. Pt afebrile, vitals stable. Blood sugars ranged from 99-160; on inulin gtt. Eating regular diet, no nausea. Pt awake until ~ 3am. Pt states he normally takes ambien for sleep. MD notified and didn't want to order ambien so late. Benadryl and melatonin given. Pt ambulated in halls and sat in chair. Gibbs with clear yellow urine, adequate amounts. Oxycodone X1. Pt needs encouragement to take pain meds. Reviewed with pt his goals today: at least 3 more walks and PLC classes. Plan of Care - Fabiola Thomas RN - 02/03/2014 11:17 PM CDT Problem: IP GENERAL POC-ADULT,OB,BEHAVIORAL FVCPM Goal: Individualization/Patient-Specific Goal (Adult,OB,Behavioral The patient and/or their sales representative uniforms will achieve their patient-specific goals related to the plan of care. The patient-specific goals include: 1. Pt will remain hemodynamically stable 2. Pt will have adequate urine output 3. Pt will be free of falls. RD Patient will verbalize understanding of 3 important aspects of post-transplant diet guidelines. PO intake >50% meals TID once diet adv. Outcome: Improving Patient doing well. Tolerating regular diet with fair appetite, no nausea. Burping, but no flatus yet. BG 111-175 on insulin gtt, patient very cooperative with calling for carb coverage with meals to time correctly. Thymo dose #2 infusing without any difficulties or reaction. VSS. Patient using oxycodone for pain with some convincing from RN, he will not ask for it, rather state he is in a lot of pain when in room for other reasons. Gibbs with good output, 750cc for shift. Getting 80mg IV lasix BID with good response, urine has cleared from red to yellow. Pharmacy-Transplant Note - Davina Schuster, [facility] - 02/03/2014 4:28 PM CDT Adult Kidney Transplant Post Operative Note 63 year old male s/p donor kidney transplant on 02/02/2014 for diabetes mellitus. Planned immunosuppression regimen to include a course of thymoglobulin and prednisone/methylprednisolone. Maintenance immunosuppression to include mycophenolate and tacrolimus (to begin once SCr < 3 mg/dL). Goal intial tacrolimus levels are 8-10 mcg/L. Opportunistic pathogen prophylaxis includes: trimethoprim/sulfamethoxazole, valganciclovir and clotrimazole. Patient is not enrolled in medication study. Patient with planned immunosuppression and prophylaxis as above. Pharmacy will monitor for medication interactions and immunosuppression levels in conjunction with the team. Medication therapy needs for discharge planning will continue to be addressed throughout thecurrent admission via multidisciplinary rounds and order review. Pharmacy will make recommendations as appropriate. Electronically signed by Davina Schuster [facility] at 02/03/2014 4:30 PM CDT Plan of Care - Martina Burciaga RN - 02/03/2014 3:08 PM CDT Problem: IP GENERAL POC-ADULT,OB,BEHAVIORAL FVCPM Goal: Individualization/Patient-Specific Goal (Adult,OB,Behavioral The patient and/or their sales representative uniforms will achieve their patient-specific goals related to the plan of care. The patient-specific goals include: 1. Pt will remain hemodynamically stable 2. Pt will have adequate urine output 3. Pt will be free of falls. RD Patient will verbalize understanding of 3 important aspects of post-transplant diet guidelines. PO intake >50% meals TID once diet adv. Report taken from [facility] on 6B; patient transferred to from 6B via wheelchair around 1500. Patientsettled into room, oriented to floor/room and call light. VS taken. Orders released. Continue ordersas written and notify MD with any concerns. Plan of Care - Sofie Christianson RN - 02/03/2014 2:59 PM CDT Problem: IP GENERAL POC-ADULT,OB,BEHAVIORAL FVCPM Goal: Plan of Care Review (Adult,OB,Behavioral) The patient and/or their sales representative uniforms will communicate an understanding of their plan of care. Outcome: Improving Pt alert and oriented. Very minimal sleep since returning from the OR at midnight. Pt with frequent visitors. PO intake poor, no BM or gas. Gibbs in place draining light pink urine which has increased in output throughout the day. Insulin gtt in place, pt on algorithm 2, 1 unit now. Pt still [id number] NC to maintain sats above 90 % when asleep and drops on occasion while awake also. Dr Owens aware. Pt resistant to taking pain medications. Finally agreed to one dose and said it didn't help as much as he had hoped, dose increased per Dr Owens. Pt transferred to via wheelchair with all belongings accompanied by transport staff and . Provider Notification - Sofie Christianson RN - 02/03/2014 8:[address] Owens notified of low urine output and lower blood pressures. Order rcvd to hold metoprolol, but togive IV lasix 80mg as ordered. Plan of Care - Tasia Andrade RN - 02/03/2014 7:32 AM CDT Problem: IP GENERAL POC-ADULT,OB,BEHAVIORAL FVCPM Goal: Individualization/Patient-Specific Goal (Adult,OB,Behavioral The patient and/or their sales representative uniforms will achieve their patient-specific goals related to the plan of care. The patient-specific goals include: 1. Pt will remain hemodynamically stable 2. Pt will have adequate urine output 3. Pt will be free of falls. BP 120/64 Pulse 55 Temp(Src) 97.7 ??F (36.5 ??C) (Oral) Resp 16 Ht 1.829 m (6') Wt 124 kg (273 lb 5.9 oz) BMI 37.07 kg/m2 SpO2 95% VSS. SR 60s-70s. CVPs high-although was told they would be inaccurate d/t IJ placement. 3L NC or 5L oxyplus mask while asleep. A&O x4. Intermittent sharp R lower abd pain. Dilaudid PHARMACY CUSTOMER CARE SPECIALIST encouraged, increased to 0.2/10/1.2. R lower abd incision with small amt drng on dressing. R MARGARET with sanguinous output. Gibbs in place with low UOP. Red/pink tinged. 20-50cc/hr-500cc NS bolus given x1 for low UOP-little effect. R FA fistula, L IJ, L PIV x1. MIVF @ 125/hr, Insulin gtt @ algorithm 2. Sat edge of bedand stood x2 overnight with 1 assist. Continue to monitor. Provider Notification - Tasia Andrade RN - 02/03/2014 2:15 AM CDT Surgery crosscover notified of low UOP. At 0200 made 20cc/hr, at 0300 made 30cc/hr. Ko Olina/red tinged urine. MIVF @ 125/hr. VSS. HR 70s, BPs 100s-120s/60s. No new orders at this time. Will continue to monitor. Plan of Care - Tasia Andrade RN - 02/03/2014 12:00 AM CDT Pt arrived to 6B from PACU, s/p DDKT. A&O x3-4. VSS. Ko Olina/red urine output. Small amt drainage on abd dressing. Oriented to room and call light. Op Note - Migel Merchant MD - 02/02/2014 11:04 PM CDT Preop Dx: End Stage renal failure due to Type 2 Diabetes Postop Dx: Same Procedure: Donor Kidney Transplant, Right iliac fossa, with venous reconstruction. A J-J ureteral stent was placed. Surgeon: Migel Merchant M.D., Ph.D. Fellow: Caitlin Owens MD fellow. There was no qualified resident available to assist with this procedure. Anesthesia: General endotracheal. EBL: 100 ml Fluids: 1700 cc crystalloid UO: 75 ml Drains: Mike drain 19F Specimen: None. Complications: None apparent. Findings: recipient artery: Normal Indication: The patient has End Stage kidney failure due to Type 2 Diabetes. The patient received offer for a Donor DRUM SANDER SETTER (expanded criteria donor) kidney transplant. After discussing the risks and benefits of proceeding, the patient agreed to proceed with surgery and provided informedconsent. Final ABO/Crossmatch verification: Prior to incision, I verified the donor ABO and recipient ABO. After the donor organ arrived to the operating room and prior to anastamosis, I visually verified that the donor identification, blood type, and other vital data were compatible with the recipient. The UNOS number of the donor is [id number]. The crossmatch was done prospectively; and the T cell flow crossmatch result was negative and B cell Flow crossmatch result was negative prior to anastomosis. The patient received Thymoglobulin, Cellcept and Solumedrol on induction. Procedure: The patient was brought to the operating room, placed in a supine position. Sequential compression devices were placed on both lower extremities and general endotracheal anesthesia was induced. The patient was given IV antibiotics and gibbs catheter. Anesthesia service placed a central line. The abdomen was then shaved prepped and draped in the usual sterile fashion. An incision was made in the right lower quadrant and carried down through the subcutaneous tissue and the abdominal wall fascia. If encountered, the epigastric vessels were ligated in continuity, divided and secured with surgical clips. The right iliac artery and vein were exposed. The retractor system was placed and the lymphatics overlying the vessels were serially ligated and divided. The patient was not heparinized. Atraumatic vascular clamps were applied and the donor kidney was brought to the operative field. A venotomy was made and the caval conduit was anastomosed to the recipient right external iliac vein in an end-to-side fashion. An arteriotomy was made and the donor renal artery was anastomosed to the recipient right external iliac artery in an end to side fashion. The patient was simultaneously loaded with IV mannitol, Lasix and volume. The renal artery was protected and the clamps were removed. After several cardiac cycles, the renal artery was opened and the kidney reperfused slowly and was soft with patches of purple but then became pink with time. The transplant ureter was managed by creating a Liche-Gregoir anastomosis with absorbable suture. A J-J stent was placed across the anastomosis. The kidney made no urine prior to implantation. Hemostasis was obtained, the anastomoses inspected, and the kidney placed in the iliac fossa. After placement, the vessel lay was inspected and found to be acceptable. The kidney position was retroperitoneal. The field was irrigated with antibiotic solution. A drain was placed. The retractor was removed and the abdominal wall fascia reapproximated. Subcutaneous tissues were irrigated and hemostasis obtained. The skin was reapproximated with modesta and a dry dressing was applied. All needle, sponge and instrument counts were correct x 2. The patient was awakened, extubated, and transferred to PACU for post-op monitoring. Faculty was present for link portions of the procedure.. Op Note - Migel Merchant MD - 02/02/2014 10:55 PM CDT PREOPERATIVE DIAGNOSIS: End stage renal failure due to Type 2 Diabetes POSTOPERATIVE DIAGNOSIS: Same. OPERATION: Bench preparation of the kidney allograft for transplantation with venous reconstruction. FACULTY SURGEON: Migel Merchant M.D., Ph.D. FELLOW/PRINCIPLE SOFTWARE ENGINEER SURGEON: Caitlin Owens MD fellow ANESTHESIA: None VERIFICATION: Prior to incision, I verified the donor ABO and recipient ABO. After the donor organ arrived to the operating room and prior to anastamosis, I visually verified that the donor identification, blood type, and other vital data were compatible with the recipient. 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 0 out of 20 glomerulosclerosis. Severely thickened atherosclerotic plaque at renal artery orifice extending to aortic patch. Rest ofrenal artery with minimal atherosclerosis. Renal artery was trimmed back to area with soft wall. No patch was used. PROCEDURE: The donor kidney was received and inspected. It had been previously flushed with UW. It was a right kidney with 1 artery 2 vein and 1 ureter. The graft was prepared on the back table by removing perinephric fat and ligating venous tributaries and lymphatics. The ureter was also cleaned of excess tissue. A vein conduit was created using the inferior vena cava and a linear stapled technique.. The kidney was stored in iced cold preservation solution until ready for transplantation. Faculty was present for the critical portions of the procedure. Plan of Care - Inez Mckeon - 02/02/2014 4:43 PM CDT Problem: IP GENERAL POC-ADULT,OB,BEHAVIORAL FVCPM Goal: Individualization/Patient-Specific Goal (Adult,OB,Behavioral The patient and/or their sales representative uniforms will achieve their patient-specific goals related to the plan of care. The patient-specific goals include: Outcome: No Change VSS on RA. BG 100. PIV placed. Pt took pre-op shower. Pt seen by cardiology and anesthesia. Report given to PACU nurse. Belongings with pt's friend. Transferred to pre-op area at 1630 for DDKT. Plan of Care - Molly Polanco, BOGDAN - 02/02/2014 3:35 PM CDT Problem: IP GENERAL POC-ADULT,OB,BEHAVIORAL FVCPM Goal: Individualization/Patient-Specific Goal (Adult,OB,Behavioral The patient and/or their sales representative uniforms will achieve their patient-specific goals related to the plan of care. The patient-specific goals include: Pt admitted from home for pre-op DD kidney transplant. VSS. BG 115. Pt has left BKA with prosthesis.Pt prefers to keep valuables (wallet, cell phone, clothes) with him in room. Labs, EKG, and xray done. Consent signed with . UA/UC sent. Pt needs pre-op shower and PIV placed. documented in this encounter Plan of Treatment Scheduled Referrals Name Type Priority Associated Diagnoses Order S chedule Home care nursing Referral Routine S/P kidney tra nsplant Ordered: 02/07/2014 referral Atrial fibrillation (H) Home care nursing Referral Routine S/P kidney tra nsplant Ordered: 02/08/2014 referral Atrial fibrillation (H) Home care PT referral Referral Routine S/P kidney transpla nt Ordered: 02/08/2014 documented as of this encounter Procedures Procedure Name Priority Date/Time Associated Comments Diagnosis GLUCOSE BY METER Routine 02/08/2014 12:06 S/P kidney Results for this PM CDT transplant procedure are i n the results section. GLUCOSE BY METER Routine 02/08/2014 8:05 AM S/P kidney Resul ts for this CDT transplant procedure are i n the results section. CBC WITH PLATELETS & Routine 02/08/2014 6:42 AM S/P kidney R esults for this DIFFERENTIAL CDT transplant procedure are i n the results section. TACROLIMUS BY TANDEM Routine 02/08/2014 6:42 AM S/P kidney R esults for this MASS SPECTROMETRY CDT transplant procedure are in the results section. INR Routine 02/08/2014 6:42 AM S/P kidney Results f or this CDT transplant procedure are i n the results section. PHOSPHORUS Routine 02/08/2014 6:42 AM S/P kidney Results f or this CDT transplant procedure are i n the results section. MAGNESIUM Routine 02/08/2014 6:42 AM S/P kidney Results f or this CDT transplant procedure are i n the results section. BASIC METABOLIC PANEL Routine 02/08/2014 6:42 AM S/P kidney Results for this CDT transplant procedure are i n the results section. GLUCOSE BY METER Routine 02/07/2014 10:18 S/P kidney Results for this PM CDT transplant procedure are i n the results section. GLUCOSE BY METER Routine 02/07/2014 7:23 PM S/P kidney Resul ts for this CDT transplant procedure are i n the results section. GLUCOSE BY METER Routine 02/07/2014 4:54 PM S/P kidney Resul ts for this CDT transplant procedure are i n the results section. GLUCOSE BY METER Routine 02/07/2014 12:06 S/P kidney Results for this PM CDT transplant procedure are i n the results section. US ABDOMEN LIMITED STAT 02/07/2014 11:37 Resul ts for this AM CDT procedure are i n the results section. GLUCOSE BY METER Routine 02/07/2014 7:47 AM Resul ts for this CDT procedure are i n the results section. GLUCOSE BY METER Routine 02/07/2014 4:48 AM Resul ts for this CDT procedure are i n the results section. CBC WITH PLATELETS & STAT 02/07/2014 4:23 AM R esults for this DIFFERENTIAL CDT procedure are i n the results section. INR Routine 02/07/2014 4:23 AM Results f or this CDT procedure are i n the results section. PHOSPHORUS Routine 02/07/2014 4:23 AM Results f or this CDT procedure are i n the results section. MAGNESIUM Routine 02/07/2014 4:23 AM Results f or this CDT procedure are i n the results section. HEMOGLOBIN A1C Routine 02/07/2014 4:23 AM Results for this CDT procedure are i n the results section. BASIC METABOLIC PANEL Routine 02/07/2014 4:23 AM Results for this CDT procedure are i n the results section. GLUCOSE BY METER Routine 02/06/2014 10:06 Results for this PM CDT procedure are i n the results section. GLUCOSE BY METER Routine 02/06/2014 9:11 PM Resul ts for this CDT procedure are i n the results section. GLUCOSE BY METER Routine 02/06/2014 5:30 PM Resul ts for this CDT procedure are i n the results section. HEMOGLOBIN Routine 02/06/2014 4:59 PM Results f or this CDT procedure are i n the results section. GLUCOSE BY METER Routine 02/06/2014 12:01 Results for this PM CDT procedure are i n the results section. CBC WITH PLATELETS & Timed 02/06/2014 5:57 AM R esults for this DIFFERENTIAL CDT procedure are i n the results section. TACROLIMUS BY TANDEM Routine 02/06/2014 5:57 AM R esults for this MASS SPECTROMETRY CDT procedure are in the results section. INR Routine 02/06/2014 5:57 AM Results f or this CDT procedure are i n the results section. PHOSPHORUS Routine 02/06/2014 5:57 AM Results f or this CDT procedure are i n the results section. PARTIAL THROMBOPLASTIN Routine 02/06/2014 5:57 AM Results for this TIME CDT procedure are i n the results section. MAGNESIUM Routine 02/06/2014 5:57 AM Results f or this CDT procedure are i n the results section. LIPID REFLEX TO DIRECT Routine 02/06/2014 5:57 AM Results for this LDL PANEL CDT procedure are i n the results section. HEPARIN 10A LEVEL Routine 02/06/2014 5:57 AM Resu lts for this CDT procedure are i n the results section. BASIC METABOLIC PANEL Routine 02/06/2014 5:57 AM Results for this CDT procedure are i n the results section. GLUCOSE BY METER Routine 02/06/2014 3:21 AM Resul ts for this CDT procedure are i n the results section. HEMOGLOBIN Routine 02/06/2014 1:02 AM Results f or this CDT procedure are i n the results section. GLUCOSE BY METER Routine 02/05/2014 10:23 Results for this PM CDT procedure are i n the results section. HEPARIN 10A LEVEL Timed 02/05/2014 7:32 PM Resu lts for this CDT procedure are i n the results section. GLUCOSE BY METER Routine 02/05/2014 6:04 PM Resul ts for this CDT procedure are i n the results section. GLUCOSE BY METER Routine 02/05/2014 2:56 PM Resul ts for this CDT procedure are i n the results section. GLUCOSE BY METER Routine 02/05/2014 2:09 PM Resul ts for this CDT procedure are i n the results section. GLUCOSE BY METER Routine 02/05/2014 12:55 Results for this PM CDT procedure are i n the results section. INR STAT 02/05/2014 12:04 Results for this PM CDT procedure are i n the results section. CBC WITH PLATELETS STAT 02/05/2014 12:04 Resul ts for this PM CDT procedure are i n the results section. GLUCOSE BY METER Routine 02/05/2014 11:25 Results for this AM CDT procedure are i n the results section. ECHO CARDIOVERSION - Routine 02/05/2014 11:15 ECHO DEPARTMENT AM CDT ECHO REFUGIO Routine 02/05/2014 11:15 AM CDT GLUCOSE BY METER Routine 02/05/2014 10:35 Results for this AM CDT procedure are i n the results section. GLUCOSE BY METER Routine 02/05/2014 9:43 AM Resul ts for this CDT procedure are i n the results section. GLUCOSE BY METER Routine 02/05/2014 8:23 AM Resul ts for this CDT procedure are i n the results section. CBC WITH PLATELETS & Routine 02/05/2014 7:02 AM R esults for this DIFFERENTIAL CDT procedure are i n the results section. PHOSPHORUS Routine 02/05/2014 7:02 AM Results f or this CDT procedure are i n the results section. PARATHYROID HORMONE Routine 02/05/2014 7:02 AM Re sults for this INTACT CDT procedure are i n the results section. MAGNESIUM Routine 02/05/2014 7:02 AM Results f or this CDT procedure are i n the results section. IRON AND IRON BINDING Routine 02/05/2014 7:02 AM Results for this CAPACITY CDT procedure are i n the results section. FERRITIN Routine 02/05/2014 7:02 AM Results f or this CDT procedure are i n the results section. BASIC METABOLIC PANEL Routine 02/05/2014 7:02 AM Results for this CDT procedure are i n the results section. GLUCOSE BY METER Routine 02/05/2014 6:59 AM Resul ts for this CDT procedure are i n the results section. GLUCOSE BY METER Routine 02/05/2014 6:01 AM Resul ts for this CDT procedure are i n the results section. GLUCOSE BY METER Routine 02/05/2014 5:06 AM Resul ts for this CDT procedure are i n the results section. GLUCOSE BY METER Routine 02/05/2014 4:04 AM Resul ts for this CDT procedure are i n the results section. GLUCOSE BY METER Routine 02/05/2014 3:03 AM Resul ts for this CDT procedure are i n the results section. GLUCOSE BY METER Routine 02/05/2014 2:01 AM Resul ts for this CDT procedure are i n the results section. GLUCOSE BY METER Routine 02/05/2014 1:06 AM Resul ts for this CDT procedure are i n the results section. GLUCOSE BY METER Routine 02/05/2014 12:09 Results for this AM CDT procedure are i n the results section. EKG 12-LEAD, TRACING STAT 02/04/2014 11:09 Res ults for this ONLY PM CDT procedure are i n the results section. GLUCOSE BY METER Routine 02/04/2014 10:56 Results for this PM CDT procedure are i n the results section. GLUCOSE BY METER Routine 02/04/2014 9:58 PM Resul ts for this CDT procedure are i n the results section. GLUCOSE BY METER Routine 02/04/2014 9:06 PM Resul ts for this CDT procedure are i n the results section. GLUCOSE BY METER Routine 02/04/2014 7:57 PM Resul ts for this CDT procedure are i n the results section. TROPONIN I Timed 02/04/2014 7:10 PM Results f or this CDT procedure are i n the results section. GLUCOSE BY METER Routine 02/04/2014 7:01 PM Resul ts for this CDT procedure are i n the results section. GLUCOSE BY METER Routine 02/04/2014 6:13 PM Resul ts for this CDT procedure are i n the results section. GLUCOSE BY METER Routine 02/04/2014 5:05 PM Resul ts for this CDT procedure are i n the results section. ECHO COMPLETE WITH Routine 02/04/2014 4:43 PM Res ults for this OPTISON CDT procedure are i n the results section. GLUCOSE BY METER Routine 02/04/2014 4:03 PM Resul ts for this CDT procedure are i n the results section. GLUCOSE BY METER Routine 02/04/2014 2:43 PM Resul ts for this CDT procedure are i n the results section. GLUCOSE BY METER Routine 02/04/2014 1:08 PM Resul ts for this CDT procedure are i n the results section. TROPONIN I Timed 02/04/2014 12:42 Results for this PM CDT procedure are i n the results section. GLUCOSE BY METER Routine 02/04/2014 12:27 Results for this PM CDT procedure are i n the results section. GLUCOSE BY METER Routine 02/04/2014 10:56 Results for this AM CDT procedure are i n the results section. GLUCOSE BY METER Routine 02/04/2014 10:06 Results for this AM CDT procedure are i n the results section. EKG 12-LEAD, TRACING STAT 02/04/2014 9:21 AM R esults for this ONLY CDT procedure are i n the results section. GLUCOSE BY METER Routine 02/04/2014 9:02 AM Resul ts for this CDT procedure are i n the results section. GLUCOSE BY METER Routine 02/04/2014 8:09 AM Resul ts for this CDT procedure are i n the results section. GLUCOSE BY METER Routine 02/04/2014 7:08 AM Resul ts for this CDT procedure are i n the results section. EKG 12-LEAD, TRACING Routine 02/04/2014 7:03 AM R esults for this ONLY CDT procedure are i n the results section. GLUCOSE BY METER Routine 02/04/2014 6:09 AM Resul ts for this CDT procedure are i n the results section. CBC WITH PLATELETS & Routine 02/04/2014 5:49 AM R esults for this DIFFERENTIAL CDT procedure are i n the results section. TROPONIN I Routine 02/04/2014 5:49 AM Results f or this CDT procedure are i n the results section. PHOSPHORUS Routine 02/04/2014 5:49 AM Results f or this CDT procedure are i n the results section. MAGNESIUM Routine 02/04/2014 5:49 AM Results f or this CDT procedure are i n the results section. BASIC METABOLIC PANEL Routine 02/04/2014 5:49 AM Results for this CDT procedure are i n the results section. GLUCOSE BY METER Routine 02/04/2014 5:33 AM Resul ts for this CDT procedure are i n the results section. GLUCOSE BY METER Routine 02/04/2014 3:54 AM Resul ts for this CDT procedure are i n the results section. GLUCOSE BY METER Routine 02/04/2014 3:01 AM Resul ts for this CDT procedure are i n the results section. GLUCOSE BY METER Routine 02/04/2014 1:44 AM Resul ts for this CDT procedure are i n the results section. GLUCOSE BY METER Routine 02/04/2014 12:07 Results for this AM CDT procedure are i n the results section. GLUCOSE BY METER Routine 02/03/2014 11:06 Results for this PM CDT procedure are i n the results section. POTASSIUM Timed 02/03/2014 10:16 Results for this PM CDT procedure are i n the results section. HEMOGLOBIN Timed 02/03/2014 10:16 Results for this PM CDT procedure are i n the results section. GLUCOSE BY METER Routine 02/03/2014 9:55 PM Resul ts for this CDT procedure are i n the results section. GLUCOSE BY METER Routine 02/03/2014 9:03 PM Resul ts for this CDT procedure are i n the results section. GLUCOSE BY METER Routine 02/03/2014 8:06 PM Resul ts for this CDT procedure are i n the results section. GLUCOSE BY METER Routine 02/03/2014 7:08 PM Resul ts for this CDT procedure are i n the results section. POTASSIUM Timed 02/03/2014 6:52 PM Results f or this CDT procedure are i n the results section. HEMOGLOBIN Timed 02/03/2014 6:52 PM Results f or this CDT procedure are i n the results section. GLUCOSE BY METER Routine 02/03/2014 6:00 PM Resul ts for this CDT procedure are i n the results section. GLUCOSE BY METER Routine 02/03/2014 5:09 PM Resul ts for this CDT procedure are i n the results section. GLUCOSE BY METER Routine 02/03/2014 4:00 PM Resul ts for this CDT procedure are i n the results section. GLUCOSE BY METER Routine 02/03/2014 2:44 PM Resul ts for this CDT procedure are i n the results section. POTASSIUM Timed 02/03/2014 1:41 PM Results f or this CDT procedure are i n the results section. HEMOGLOBIN Timed 02/03/2014 1:41 PM Results f or this CDT procedure are i n the results section. GLUCOSE BY METER Routine 02/03/2014 1:10 PM Resul ts for this CDT procedure are i n the results section. GLUCOSE BY METER Routine 02/03/2014 11:56 Results for this AM CDT procedure are i n the results section. GLUCOSE BY METER Routine 02/03/2014 11:07 Results for this AM CDT procedure are i n the results section. POTASSIUM Timed 02/03/2014 10:11 Results for this AM CDT procedure are i n the results section. HEMOGLOBIN Timed 02/03/2014 10:11 Results for this AM CDT procedure are i n the results section. GLUCOSE BY METER Routine 02/03/2014 9:58 AM Resul ts for this CDT procedure are i n the results section. GLUCOSE BY METER Routine 02/03/2014 9:13 AM Resul ts for this CDT procedure are i n the results section. US RENAL TRANSPLANT STAT 02/03/2014 8:39 AM Re sults for this WITH DOPPLER CDT procedure are i n the results section. GLUCOSE BY METER Routine 02/03/2014 8:06 AM Resul ts for this CDT procedure are i n the results section. GLUCOSE BY METER Routine 02/03/2014 7:01 AM Resul ts for this CDT procedure are i n the results section. GLUCOSE BY METER Routine 02/03/2014 6:05 AM Resul ts for this CDT procedure are i n the results section. CBC WITH PLATELETS & Timed 02/03/2014 5:38 AM R esults for this DIFFERENTIAL CDT procedure are i n the results section. PHOSPHORUS Routine 02/03/2014 5:38 AM Results f or this CDT procedure are i n the results section. MAGNESIUM Routine 02/03/2014 5:38 AM Results f or this CDT procedure are i n the results section. HEMOGLOBIN A1C Routine 02/03/2014 5:38 AM Results for this CDT procedure are i n the results section. BASIC METABOLIC PANEL Timed 02/03/2014 5:38 AM Results for this CDT procedure are i n the results section. GLUCOSE BY METER Routine 02/03/2014 5:05 AM Resul ts for this CDT procedure are i n the results section. GLUCOSE BY METER Routine 02/03/2014 3:57 AM Resul ts for this CDT procedure are i n the results section. GLUCOSE BY METER Routine 02/03/2014 2:59 AM Resul ts for this CDT procedure are i n the results section. GLUCOSE BY METER Routine 02/03/2014 2:00 AM Resul ts for this CDT procedure are i n the results section. POTASSIUM Timed 02/03/2014 1:18 AM Results f or this CDT procedure are i n the results section. HEMOGLOBIN Timed 02/03/2014 1:18 AM Results f or this CDT procedure are i n the results section. GLUCOSE BY METER Routine 02/03/2014 1:16 AM Resul ts for this CDT procedure are i n the results section. GLUCOSE BY METER Routine 02/03/2014 12:09 Results for this AM CDT procedure are i n the results section. XR CHEST PORT 1 VIEW STAT 02/02/2014 11:25 Res ults for this PM CDT procedure are i n the results section. GLUCOSE BY METER Routine 02/02/2014 10:50 Results for this PM CDT procedure are i n the results section. CBC WITH PLATELETS & STAT 02/02/2014 10:50 Res ults for this DIFFERENTIAL PM CDT procedure are i n the results section. PHOSPHORUS STAT 02/02/2014 10:50 Results for this PM CDT procedure are i n the results section. MAGNESIUM STAT 02/02/2014 10:50 Results for this PM CDT procedure are i n the results section. BASIC METABOLIC PANEL STAT 02/02/2014 10:50 Re sults for this PM CDT procedure are i n the results section. VENOUS PANEL Routine 02/02/2014 10:09 Results for this PM CDT procedure are i n the results section. GLUCOSE BY METER Routine 02/02/2014 9:24 PM Resul ts for this CDT procedure are i n the results section. GLUCOSE BY METER Routine 02/02/2014 8:13 PM Resul ts for this CDT procedure are i n the results section. VENOUS PANEL STAT 02/02/2014 6:40 PM Results f or this CDT procedure are i n the results section. TRANSPLANT, KIDNEY, 02/02/2014 5:14 PM Renal Failure RECIPIENT, CDT DONOR GLUCOSE BY METER Routine 02/02/2014 5:11 PM Resul ts for this CDT procedure are i n the results section. GLUCOSE BY METER Routine 02/02/2014 3:45 PM Resul ts for this CDT procedure are i n the results section. XR CHEST 2 VIEWS STAT 02/02/2014 2:50 PM Resul ts for this CDT procedure are i n the results section. EBV CAPSID ANTIBODY IGM STAT 02/02/2014 2:07 PM Results for this CDT procedure are i n the results section. EBV CAPSID ANTIBODY IGG STAT 02/02/2014 2:07 PM Results for this CDT procedure are i n the results section. CMV ANTIBODY IGM STAT 02/02/2014 2:07 PM Resul ts for this CDT procedure are i n the results section. CMV ANTIBODY IGG STAT 02/02/2014 2:07 PM Resul ts for this CDT procedure are i n the results section. HIV ANTIGEN ANTIBODY STAT 02/02/2014 2:07 PM R esults for this COMBO CDT procedure are i n the results section. BLOOD COMPONENT Routine 02/02/2014 2:07 PM Result s for this CDT procedure are i n the results section. BLOOD COMPONENT Routine 02/02/2014 2:07 PM Result s for this CDT procedure are i n the results section. CBC WITH PLATELETS & STAT 02/02/2014 2:07 PM R esults for this DIFFERENTIAL CDT procedure are i n the results section. LIPID PROFILE STAT 02/02/2014 2:07 PM Results for this CDT procedure are i n the results section. HEPATITIS C ANTIBODY STAT 02/02/2014 2:07 PM R esults for this CDT procedure are i n the results section. HEPATITIS B SURFACE STAT 02/02/2014 2:07 PM Re sults for this ANTIGEN CDT procedure are i n the results section. HEPATITIS B CORE STAT 02/02/2014 2:07 PM Resul ts for this ANTIBODY IGM CDT procedure are i n the results section. HEMOGLOBIN A1C STAT 02/02/2014 2:07 PM Results for this CDT procedure are i n the results section. COMPREHENSIVE METABOLIC STAT 02/02/2014 2:07 PM Results for this PANEL CDT procedure are i n the results section. ABO/RH TYPE AND SCREEN STAT 02/02/2014 2:07 PM Results for this CDT procedure are i n the results section. ROUTINE UA WITH Routine 02/02/2014 2:00 PM Result s for this MICROSCOPIC CDT procedure are i n the results section. PROTEIN RANDOM URINE STAT 02/02/2014 2:00 PM R esults for this CDT procedure are i n the results section. CREATININE URINE Routine 02/02/2014 2:00 PM Resul ts for this CALCULATION ONLY (LAB CDT proced ure are in ONLY) the results section. URINE CULTURE Routine 02/02/2014 2:00 PM Results for this CDT procedure are i n the results section. GLUCOSE BY METER Routine 02/02/2014 1:59 PM Resul ts for this CDT procedure are i n the results section. EKG 12-LEAD, TRACING STAT 02/02/2014 1:58 PM R esults for this ONLY CDT procedure are i n the results section. documented in this encounter Results (ABNORMAL) Glucose by meter (02/08/2014 12:06 PM CDT) P athologist Signature Glucose 193 (H) 60 - 99 POINT OF CARE mg/dL TEST, GLUCOSE Specimen Anatomical Collection Method Collection Time Receive d Time (Source) Location / / Volume Laterality 02/08/2014 12:06 02/08/2014 PM CDT 12:10 PM CDT Migel LARES - ROBERT POCT Performing Organization Address City/State/[facility] Code Phon e Number FV POINT OF CARE TEST, GLUCOSE POINT OF CARE TEST, GLUCOSE (ABNORMAL) Glucose by meter (02/08/2014 8:05 AM CDT) P athologist Signature Glucose 157 (H) 60 - 99 POINT OF CARE mg/dL TEST, GLUCOSE Specimen Anatomical Collection Method Collection Time Receive d Time (Source) Location / / Volume Laterality 02/08/2014 8:05 AM 4 8:10 CDT AM CDT Migel JONES POCT Performing Organization Address City/State/ZIP Code Phon e Number FV POINT OF CARE TEST, GLUCOSE POINT OF CARE TEST, GLUCOSE Tacrolimus level (02/08/2014 6:42 AM CDT) [facility] gist Method Time Signature Tacrolimus Not Provided [facility] Last Dose [facility] Tacrolimus 10.0 5.0 - [facility] Level 15.0 ug/L [facility] Comment: Tacrolimus Reference Range Kidney Transplant [...] Time (Source) Location / / Volume Laterality 02/08/2014 6:42 AM 4 6:43 CDT AM CDT Omaira Chavez PA-C LAB - BLOOD ORDERABLES Performing Organization Address City/State/ZIP Code Phon e Number [facility] [address] [place] [address] [facility] (ABNORMAL) INR (02/08/2014 6:42 AM CDT) P athologist Signature INR 1.28 (H) 0.86 - 1.14 [facility] Specimen Anatomical Collection Method Collection Time Receive d Time (Source) Location / / Volume Laterality Blood specimen 02/08/2014 6:42 AM 014 6:43 (specimen) CDT AM CDT Omaira Chavez PA-C LAB - BLOOD ORDERABLES Performing Organization Address City/[facility]/ZIP Code Phon e Number [facility] [address] [place], [place] [phone] [place] [address] LABS (ABNORMAL) Basic metabolic panel (02/08/2014 6:42 AM CDT) Patholo gist Method Time Signature Sodium 144 133 - 144 [facility] mmol/L [facility] LABS Potassium 3.9 3.4 - 5.3 [facility] mmol/L [facility] LABS Chloride 110 (H) 94 - 109 [facility] mmol/L [facility]S Carbon Dioxide 25 20 - 32 [facility] mmol/L [facility] Anion Gap 8 6 - 17 [facility] mmol/L [facility] Glucose 144 (H) 60 - 99 [facility] mg/dL [facility] Urea Nitrogen 66 (H) 7 - 30 [facility] mg/dL [facility] Creatinine 2.38 (H) 0.66 - [facility] 1.25 mg/dL [facility] LABS GFR Estimate 28 (L) >60 [facility] mL/min/1.7 [place] [facility] LABS GFR Estimate If 34 (L) >60 [facility] Black mL/min/1.7 [place] [facility]2 [facility] LABS Calcium 9.4 8.5 - 10.4 [facility] mg/dL [facility] LABS Specimen Anatomical Collection Method Collection Time Receive d Time (Source) Location / / Volume Laterality Blood specimen 02/08/2014 6:42 AM 014 6:43 (specimen) CDT AM CDT Omaira Chavez PA-C LAB - BLOOD ORDERABLES Performing Organization Address City/State/ZIP Code Phon e Number [facility] [address] [place] [address] [facility] LABS Phosphorus (02/08/2014 6:42 AM CDT) P athologist Signature Phosphorus 2.5 2.5 - 4.5 [facility] mg/dL CAMPUS LABS Specimen Anatomical Collection Method Collection Time Receive d Time (Source) Location / / Volume Laterality Blood specimen 02/08/2014 6:42 AM 014 6:43 (specimen) CDT AM CDT Omaira Chavez PA-C LAB - BLOOD ORDERABLES Performing Organization Address City/State/ZIP Code Phon e Number [facility] [address] LABS Magnesium (02/08/2014 6:42 AM CDT) P athologist Signature Magnesium 2.2 1.6 - 2.3 [facility] mg/dL [place] LABS Specimen Anatomical Collection Method Collection Time Receive d Time (Source) Location / / Volume Laterality Blood specimen 02/08/2014 6:42 AM 014 6:43 (specimen) CDT AM CDT Omaira Chavez PA-C LAB - BLOOD ORDERABLES Performing Organization Address City/[facility]/ZIP Code Phon e Number [facility] [address] LABS (ABNORMAL) CBC with platelets differential (02/08/2014 6:42 AM CDT) Patholo gist Method Time Signature WBC 4.8 4.0 - [facility] 11.0 [facility] 10e9/L [place] LABS RBC Count 2.56 (L) 4.4 - 5.9 [facility] 10e12/L [facility] LABS Hemoglobin 7.8 (L) 13.3 - [facility] 17.7 g/dL [facility] LABS Hematocrit 23.5 (L) 40.0 - [facility] 53.0 % [facility] LABS MCV 92 78 - 100 [facility] fl [facility] LABS MCH 30.5 26.5 - [facility] 33.0 pg [facility] LABS MCHC 33.2 31.5 - [facility] 36.5 g/dL [facility] LABS RDW 14.5 10.0 - [facility] 15.0 % [facility] LABS Platelet Count 70 (L) 150 - 450 [facility] 10e9/L [facility] LABS Diff Method Automated [facility] Method [facility] LABS % Neutrophils 86.3 % [facility] LABS % Lymphocytes 3.1 % [facility] LABS % Monocytes 9.4 % [facility] LABS % Eosinophils 1.0 % [facility] LABS % Basophils 0.0 % [facility] LABS % Immature 0.2 % [facility] Granulocytes [facility] LABS Absolute 4.1 1.6 - 8.3 [facility] Neutrophil 10e9/L [facility] LABS Absolute 0.2 (L) 0.8 - 5.3 [facility] Lymphocytes 10e9/L [facility] Absolute 0.5 0.0 - 1.3 [facility] Monocytes 10e9/L [facility] Absolute 0.1 0.0 - 0.7 [facility] Eosinophils 10e9/L [facility] Absolute 0.0 0.0 - 0.2 [facility] Basophils 10e9/L [facility] Abs Immature 0.0 0 - 0.4 [facility] Granulocytes 10e9/L [facility] LABS Specimen Anatomical Collection Method Collection Time Receive d Time (Source) Location / / Volume Laterality Blood specimen 02/08/2014 6:42 AM 014 6:43 (specimen) CDT AM CDT Omaira Chavez PA-C LAB - BLOOD ORDERABLES Performing Organization Address City/State/ZIP Code Phon e Number [phone] [place] [address] LABS (ABNORMAL) Glucose by meter (02/07/2014 10:18 PM CDT) P athologist Signature Glucose 233 (H) 60 - 99 POINT OF CARE mg/dL TEST, GLUCOSE Specimen Anatomical Collection Method Collection Time Receive d Time (Source) Location / / Volume Laterality 02/07/2014 10:18 02/07/2014 PM CDT 10:20 PM CDT Migel LARES - BEAKER POCT Performing Organization Address City/[facility]/ZIP Code Phon e Number [facility] POINT OF CARE TEST, GLUCOSE POINT OF CARE TEST, GLUCOSE (ABNORMAL) Glucose by meter (02/07/2014 7:23 PM CDT) P athologist Signature Glucose 229 (H) 60 - 99 POINT OF CARE mg/dL TEST, GLUCOSE Specimen Anatomical Collection Method Collection Time Receive d Time (Source) Location / / Volume Laterality 02/07/2014 7:23 PM 4 7:25 CDT PM CDT Migel LARES - BEAKER POCT Performing Organization Address City/State/ZIP Code Phon e Number [facility] POINT OF CARE TEST, GLUCOSE POINT OF CARE TEST, GLUCOSE (ABNORMAL) Glucose by meter (02/07/2014 4:54 PM CDT) P athologist Signature Glucose 240 (H) 60 - 99 POINT OF CARE mg/dL TEST, GLUCOSE Specimen Anatomical Collection Method Collection Time Receive d Time (Source) Location / / Volume Laterality 02/07/2014 4:54 PM 4 5:00 CDT PM CDT Migel Merchant MD LAB - BEAKER POCT Performing Organization Address City/[facility]/ZIP [facility] Phon e Number [facility] POINT OF CARE TEST, GLUCOSE POINT OF CARE TEST, GLUCOSE (ABNORMAL) Glucose by meter (02/07/2014 12:06 PM CDT) P athologist Signature Glucose 193 (H) 60 - 99 POINT OF CARE mg/dL TEST, GLUCOSE Specimen Anatomical Collection Method Collection Time Receive d Time (Source) Location / / Volume Laterality 02/07/2014 12:06 02/07/2014 PM CDT 12:11 PM CDT Migel Merchant MD LAB - BEAKER POCT Performing Organization Address [facility] Phon e Number [facility] POINT OF CARE TEST, GLUCOSE POINT OF CARE TEST, GLUCOSE US Abdomen Limited (02/07/2014 11:37 AM CDT) Anatomical Region Laterality Modality Abdomen/Pelvis Ultrasound Specimen (Source) Anatomical Location Collection Method / Collectio n Time Received Time / Laterality Volume Impressions 02/07/2014 5:35 PM CDT IMPRESSION: 17 cm fluid collection deep to the right lower quadrant surgical incision could represent hemato ma, seroma, less likely abscess. Findings discussed with Adeline Diaz by Tiffany Cox at 1143 hours January,. I have personally reviewed the examinati on and initial interpretation and I agree with the findings. JORGE LAWTON MD Narrative 02/07/2014 5:35 PM CDT Superficial ultrasound of the right lower quadrant abdominal wall 02/07/2014 11:37 AM ?? HISTORY: Kidney transplant January, , swelling and bleeding from the incision site COMPARISON: None available FINDINGS: There is a tubular complex flu id collection within the soft tissues with multiple internal septa, de ep to the right lower quadrant abdominal incision, ??measuring 5.3 x 4. 3 cm transverse and at least 17 cm long. No ascites is seen. Procedure Note Jorge Lawton MD - 02/08/20 14 Superficial ultrasound of the right lowe r quadrant abdominal wall 02/07/2014 11:37 AM HISTORY: Kidney transplant January, , swelling and bleeding from the incision site COMPARISON: None available FINDINGS: There is a tubular complex flu id collection within the soft tissues with multiple internal septa, de ep to the right lower quadrant abdominal incision, measuring 5.3 x 4.3 cm transverse and at least 17 cm long. No ascites is seen. IMPRESSION IMPRESSION: 17 cm fluid collection deep to the right lower quadrant surgical incision could represent hemato ma, seroma, less likely abscess. Findings discussed with Adeline Diaz by Tiffany Cox at 1143 hours January,. I have personally reviewed the examinati on and initial interpretation and I agree with the findings. JORGE LAWTON MD Adeline Diaz MD IMG US ORDERABLES (ABNORMAL) Glucose by meter (02/07/2014 7:47 AM CDT) athologist Signature Glucose 168 (H) 60 - 99 POINT OF CARE mg/dL TEST, GLUCOSE Specimen Anatomical Collection Method Collection Time Receive d Time (Source) Location / / Volume Laterality 02/07/2014 7:47 AM 4 7:50 CDT AM CDT Migel JONES POCT Performing Organization Address City/[facility] Code Phon e Number [facility] POINT OF CARE TEST, GLUCOSE POINT OF CARE TEST, GLUCOSE (ABNORMAL) Glucose by meter (02/07/2014 4:48 AM CDT) athologist Signature Glucose 192 (H) 60 - 99 POINT OF CARE mg/dL TEST, GLUCOSE Specimen Anatomical Collection Method Collection Time Receive d Time (Source) Location / / Volume Laterality 02/07/2014 4:48 AM 4 4:50 CDT AM CDT Migel JONES POCT Performing Organization Address City/State/[facility] Code Phon e Number [facility] POINT OF CARE TEST, GLUCOSE POINT OF CARE TEST, GLUCOSE (ABNORMAL) INR (02/07/2014 4:23 AM CDT) athologist Signature INR 1.25 (H) 0.86 - 1.14 [facility] Specimen Anatomical Collection Method Collection Time Receive d Time (Source) Location / / Volume Laterality Blood specimen 02/07/2014 4:23 AM 014 4:24 (specimen) CDT AM CDT Omaira Chavez PA-C LAB - BLOOD ORDERABLES Performing Organization Address City/[facility]/ZIP Code Phon e Number [facility] [address] [place] [address] [facility] LABS (ABNORMAL) Basic metabolic panel (02/07/2014 4:23 AM CDT) Patholo gist Method Time Signature Sodium 143 133 - 144 [facility] mmol/L [facility] LABS Potassium 4.1 3.4 - 5.3 [facility] mmol/L [facility] LABS Chloride 109 94 - 109 [facility] mmol/L [facility]S Carbon Dioxide 24 20 - 32 [facility] mmol/L [facility] LABS Anion Gap 10 6 - 17 [facility] mmol/L [facility] Glucose 185 (H) 60 - 99 [facility] mg/dL [facility] Urea Nitrogen 77 (H) 7 - 30 [facility] mg/dL [facility]S Creatinine 3.02 (H) 0.66 - [facility] 1.25 mg/dL [facility] LABS GFR Estimate 21 (L) >60 [facility] mL/min/1.7 [facility] m2 [facility] LABS GFR Estimate If 26 (L) >60 [facility] Black mL/min/1.7 [place] m2 [facility] LABS Calcium 9.3 8.5 - 10.4 [facility] mg/dL [facility] LABS Specimen Anatomical Collection Method Collection Time Receive d Time (Source) Location / / Volume Laterality Blood specimen 02/07/2014 4:23 AM 014 4:24 (specimen) CDT AM CDT Omaira Chavez PA-C LAB - BLOOD ORDERABLES Performing Organization Address City/State/ZIP Code Phon e Number [facility] [address] [place] [address] [facility] LABS Phosphorus (02/07/2014 4:23 AM CDT) P athologist Signature Phosphorus 3.5 2.5 - 4.5 [facility]ITY mg/dL CAMPUS LABS Specimen Anatomical Collection Method Collection Time Receive d Time (Source) Location / / Volume Laterality Blood specimen 02/07/2014 4:23 AM 014 4:24 (specimen) CDT AM CDT Omaira Chavez PA-C LAB - BLOOD ORDERABLES Performing Organization Address City/State/ZIP Code Phon e Number [facility] [address] LABS Magnesium (02/07/2014 4:23 AM CDT) P athologist Signature Magnesium 2.1 1.6 - 2.3 [facility] mg/dL [place] LABS Specimen Anatomical Collection Method Collection Time Receive d Time (Source) Location / / Volume Laterality Blood specimen 02/07/2014 4:23 AM 014 4:24 (specimen) CDT AM CDT Omaira Chavez PA-C LAB - BLOOD ORDERABLES Performing Organization Address City/[facility]/ZIP Code Phon e Number [facility] [address] [place], [place] [phone] [place] [address] LABS (ABNORMAL) CBC with platelets differential (02/07/2014 4:23 AM CDT) Patholo gist Method Time Signature WBC 2.7 (L) 4.0 - [facility] 11.0 [facility] 10e9/L [place] LABS RBC Count 2.80 (L) 4.4 - 5.9 [facility] 10e12/L [facility] LABS Hemoglobin 8.5 (L) 13.3 - [facility] 17.7 g/dL [facility] LABS Hematocrit 25.8 (L) 40.0 - [facility] 53.0 % [facility] LABS MCV 92 78 - 100 [facility] fl [facility] LABS MCH 30.4 26.5 - [facility] 33.0 pg [facility]S MCHC 32.9 31.5 - [facility] 36.5 g/dL [facility] LABS RDW 14.5 10.0 - [facility] 15.0 % [facility]S Platelet Count 77 (L) 150 - 450 [facility] 10e9/L [facility] LABS Diff Method Automated [facility] Method [facility] LABS % Neutrophils 87.5 % [facility] LABS % Lymphocytes 3.8 % [facility] LABS % Monocytes 8.7 % [facility] LABS % Eosinophils 0.0 % [facility] LABS % Basophils 0.0 % [facility] LABS % Immature 0.0 % [facility] Granulocytes [facility] LABS Absolute 2.3 1.6 - 8.3 [facility] Neutrophil 10e9/L [facility] [place] LABS Absolute 0.1 (L) 0.8 - 5.3 [facility] Lymphocytes 10e9/L [facility] Absolute 0.2 0.0 - 1.3 [facility] Monocytes 10e9/L [facility] Absolute 0.0 0.0 - 0.7 [facility] Eosinophils 10e9/L [place] [facility] LAB[facility] Absolute 0.0 0.0 - 0.2 [facility] Basophils 10e9/L [facility] LAB[facility] Abs Immature 0.0 0 - 0.4 [facility] Granulocytes 10e9/L [facility] LABS Specimen Anatomical Collection Method Collection Time Receive d Time (Source) Location / / Volume Laterality Blood specimen 02/07/2014 4:23 AM 014 4:24 (specimen) CDT AM CDT Omaira Chavez PA-C LAB - BLOOD ORDERABLES Performing Organization Address City/[facility]/ZIP Code Phon e Number [address] LABS (ABNORMAL) Hemoglobin A1c (02/07/2014 4:23 AM CDT) Analysis Performed At Patho logist Time Signature Hemoglobin A1C 6.1 (H) 4.3 - 6.0 [facility] % [facility] LABS Specimen Anatomical Collection Method Collection Time Receive d Time (Source) Location / / Volume Laterality Blood specimen 02/07/2014 4:23 AM 014 4:24 (specimen) CDT AM CDT Omaira Chavez PA-C LAB - BLOOD ORDERABLES Performing Organization Address City/[facility]/ZIP Code Phon e Number [address] LABS (ABNORMAL) Glucose by meter (02/06/2014 10:06 PM CDT) P athologist Signature Glucose 247 (H) 60 - 99 POINT OF CARE mg/dL TEST, GLUCOSE Specimen Anatomical Collection Method Collection Time Receive d Time (Source) Location / / Volume Laterality 02/06/2014 10:06 02/06/2014 PM CDT 10:10 PM CDT Migel Merchant MD LAB - BEAKER POCT Performing Organization Address City/State/ZIP Code Phon e Number [facility] POINT OF CARE TEST, GLUCOSE POINT OF CARE TEST, GLUCOSE (ABNORMAL) Glucose by meter (02/06/2014 9:11 PM CDT) P athologist Signature Glucose 263 (H) 60 - 99 POINT OF CARE mg/dL TEST, GLUCOSE Comment: /BOGDAN Notified Specimen Anatomical Collection Method Collection Time Receive d Time (Source) Location / / Volume Laterality 02/06/2014 9:11 PM 4 9:15 CDT PM CDT Migel Merchant MD LAB - BEAKER POCT Performing Organization Address City/State/ZIP Code Phon e Number [facility] POINT OF CARE TEST, GLUCOSE POINT OF CARE TEST, GLUCOSE (ABNORMAL) Glucose by meter (02/06/2014 5:30 PM CDT) P athologist Signature Glucose 200 (H) 60 - 99 POINT OF CARE mg/dL TEST, GLUCOSE Comment: Samara Notified Specimen Anatomical Collection Method Collection Time Receive d Time (Source) Location / / Volume Laterality 02/06/2014 5:30 PM 4 5:36 CDT PM CDT Migel Merchant MD LAB - BEAKER POCT Performing Organization Address City/State/ZIP Code Phon e Number [facility] POINT OF CARE TEST, GLUCOSE POINT OF CARE TEST, GLUCOSE (ABNORMAL) Hemoglobin (02/06/2014 4:59 PM CDT) athologist Signature Hemoglobin 8.8 (L) 13.3 - 17.7 [facility] g/dL [place] LABS Specimen Anatomical Collection Method Collection Time Receive d Time (Source) Location / / Volume Laterality Blood specimen 02/06/2014 4:59 PM 014 5:12 (specimen) CDT PM CDT Omaira Chavez PA-C LAB - BLOOD ORDERABLES Performing Organization Address City/State/ZIP Code Phon e Number [address] [phone] [facility] LABS (ABNORMAL) Glucose by meter (02/06/2014 12:01 PM CDT) athologist Signature Glucose 181 (H) 60 - 99 POINT OF CARE mg/dL TEST, GLUCOSE Specimen Anatomical Collection Method Collection Time Receive d Time (Source) Location / / Volume Laterality 02/06/2014 12:01 02/06/2014 PM CDT 12:05 PM CDT Migel Merchant MD LAB - BEAKER POCT Performing Organization Address City/[facility]/ZIP Code Phon e Number [facility] POINT OF CARE TEST, GLUCOSE POINT OF CARE TEST, GLUCOSE (ABNORMAL) Partial thromboplastin time (02/06/2014 5:57 AM CDT) P athologist Signature PTT 154 (HH) 22 - 37 sec [facility] LABS Comment: Critical Value called to and read back Whitney Poon RN AT 0642. PW Specimen Anatomical Collection Method Collection Time Receive d Time (Source) Location / / Volume Laterality 02/06/2014 5:57 AM 4 6:03 CDT AM CDT Adeline Diaz MD LAB - BLOOD ORDERABLES Performing Organization Address City/[facility]/ZIP Code Phon e Number [phone] [place] [address] LABS Heparin Xa (10a) Level (02/06/2014 5:57 AM CDT) P athologist Signature Heparin 10A 0.92 IU/mL [facility] LABS Comment: Therapeutic Range: ?? UFH: ?? 0.15-0.35 IU/mL for low ?intensity dosing ?0.30-0.70 IU/mL for high ?intensity dosing ?? LMWH: ??1.00-2.00 IU/mL if 4-6 h ?post daily dosing ?0.60-1.00 IU/mL if 4-6 h ?post twice a day dosin g Specimen Anatomical Collection Method Collection Time Receive d Time (Source) Location / / Volume Laterality Blood specimen 02/06/2014 5:57 AM 014 6:03 (specimen) CDT AM CDT Omaira Chavez PA-C LAB - BLOOD ORDERABLES Performing Organization Address City/State/ZIP Code Phon e Number [facility] [address] [place] [address] [facility] LABS (ABNORMAL) INR (02/06/2014 5:57 AM CDT) P athologist Signature INR 1.32 (H) 0.86 - 1.14 [facility] LABS Specimen Anatomical Collection Method Collection Time Receive d Time (Source) Location / / Volume Laterality Blood specimen 02/06/2014 5:57 AM 014 6:03 (specimen) CDT AM CDT Omaira Chavez PA-C LAB - BLOOD ORDERABLES Performing Organization Address City/State/ZIP Code Phon e Number [facility] [address] LABS (ABNORMAL) Basic metabolic panel (02/06/2014 5:57 AM CDT) Patholo gist Method Time Signature Sodium 142 133 - 144 [facility] mmol/L [facility] LABS Potassium 4.7 3.4 - 5.3 [facility] mmol/L [facility] LABS Chloride 106 94 - 109 [facility] mmol/L [facility]S Carbon Dioxide 28 20 - 32 [facility] mmol/L [facility] Anion Gap 8 6 - 17 [facility] mmol/L [facility] Glucose 196 (H) 60 - 99 [facility] mg/dL [facility] Urea Nitrogen 71 (H) 7 - 30 [facility] mg/dL [facility] Creatinine 3.96 (H) 0.66 - [facility] 1.25 mg/dL [facility] LABS GFR Estimate 15 (L) >60 [facility] mL/min/1.7 [place] m2 [facility] LABS GFR Estimate If 19 (L) >60 [facility] Black mL/min/1.[address] LABS Calcium 9.4 8.5 - 10.4 [facility] mg/dL [facility] LABS Specimen Anatomical Collection Method Collection Time Receive d Time (Source) Location / / Volume Laterality Blood specimen 02/06/2014 5:57 AM 014 6:03 (specimen) CDT AM CDT Omaira Chavez PA-C LAB - BLOOD ORDERABLES Performing Organization Address City/State/ZIP Code Phon e Number [facility] [address] [place] [address] [facility] LABS Phosphorus (02/06/2014 5:57 AM CDT) athologist Signature Phosphorus 4.5 2.5 - 4.5 [facility] mg/dL [place] LABS Specimen Anatomical Collection Method Collection Time Receive d Time (Source) Location / / Volume Laterality Blood specimen 02/06/2014 5:57 AM 014 6:03 (specimen) CDT AM CDT Omaira Chavez PA-C LAB - BLOOD ORDERABLES Performing Organization Address City/[facility]/ZIP Code Phon e Number [facility] [address] LABS Magnesium (02/06/2014 5:57 AM CDT) athologist Signature Magnesium 1.9 1.6 - 2.3 [facility] mg/dL [place] LABS Specimen Anatomical Collection Method Collection Time Receive d Time (Source) Location / / Volume Laterality Blood specimen 02/06/2014 5:57 AM 014 6:03 (specimen) CDT AM CDT Omaira Chavez PA-C LAB - BLOOD ORDERABLES Performing Organization Address City/State/[facility] Code Phon e Number [facility] [address] LABS (ABNORMAL) CBC with platelets differential (02/06/2014 5:57 AM CDT) [facility] Method Time Signature WBC 5.1 4.0 - [facility] 11.0 [facility] 10e9/L [place] LABS RBC Count 3.13 (L) 4.4 - 5.9 [facility] 10e12/L [facility] LABS Hemoglobin 9.6 (L) 13.3 - [facility] 17.7 g/dL [facility] LABS Hematocrit 29.0 (L) 40.0 - [facility] 53.0 % [facility] LABS MCV 93 78 - 100 [facility] fl [facility] LABS MCH 30.7 26.5 - [facility] 33.0 pg [facility] MCHC 33.1 31.5 - [facility] 36.5 g/dL [facility] LABS RDW 14.5 10.0 - [facility] 15.0 % [facility]S Platelet Count 85 (L) 150 - 450 [facility] 10e9/L [facility] Diff Method Automated [facility] Method [facility] LABS % Neutrophils 86.0 % [facility] LABS % Lymphocytes 5.1 % [facility] LAB[facility] % Monocytes 8.7 % [facility] LABS % Eosinophils 0.0 % [facility] LABS % Basophils 0.0 % [facility] LABS % Immature 0.2 % [facility] Granulocytes [facility] LABS Absolute 4.4 1.6 - 8.3 [facility] Neutrophil 10e9/L [facility] LABS Absolute 0.3 (L) 0.8 - 5.3 [facility] Lymphocytes 10e9/L [facility] Absolute 0.4 0.0 - 1.3 [facility] Monocytes 10e9/L [facility] Absolute 0.0 0.0 - 0.7 [facility] Eosinophils 10e9/L [facility] Absolute 0.0 0.0 - 0.2 [facility] Basophils 10e9/L [facility] Abs Immature 0.0 0 - 0.4 [facility] Granulocytes 10e9/L [facility] LABS Specimen Anatomical Collection Method Collection Time Receive d Time (Source) Location / / Volume Laterality Blood specimen 02/06/2014 5:57 AM 014 6:03 (specimen) CDT AM CDT Omaira Chavez PA-C LAB - BLOOD ORDERABLES Performing Organization Address City/State/ZIP Code Phon e Number [address] LABS (ABNORMAL) Lipid panel reflex to direct LDL (02/06/2014 5:57 AM CDT) P athologist Signature Cholesterol 126 <200 mg/dL [facility] LAB[facility] Comment: LDL Cholesterol is the primary guide to therapy. The NCEP recommends further evaluation of: patients with cholesterol greater than 200 mg/dL if additional risk facto rs are present, cholesterol greater than 240 mg/dL, triglycerides greater than 1 50 mg/dL, or HDL less than 40 mg/dL. Triglycerides 100 0 - 150 mg/dL [facility] LABS HDL Cholesterol 35 (L) >40 mg/dL [facility] LABS LDL Cholesterol Calculated 71 0 - 129 mg/dL [facility] LAB[facility] Comment: LDL Cholesterol is the primary guide to therapy: LDL-cholesterol goal in high risk patients is <100 mg/dL and in very high risk patients is <70 mg/dL. VLDL-Cholesterol 20 0 - 30 mg/dL [facility] Cholesterol/HDL Ratio 3.6 0.0 - 5.0 [facility] Specimen Anatomical Collection Method Collection Time Receive d Time (Source) Location / / Volume Laterality Blood specimen 02/06/2014 5:57 AM 014 6:03 (specimen) CDT AM CDT Omaira Chavez PA-C LAB - BLOOD ORDERABLES Performing Organization Address City/State/ZIP Code Phon e Number [facility] [address] [place], [place] [phone] [place] [address] LABS Tacrolimus level (02/06/2014 5:57 AM CDT) [facility] gist Method Time Signature Tacrolimus S Negative [facility] Last Dose [facility] LABS Tacrolimus 12.7 5.0 - [facility] Level 15.0 ug/L [facility] LAB[facility] Comment: Tacrolimus Reference Range Kidney Transplant [...] Location / / Volume Laterality Blood specimen 02/06/2014 5:57 AM 014 6:03 (specimen) CDT AM CDT Adeline iDaz MD LAB - BLOOD ORDERABLES Performing Organization Address City/[facility] System/ZIP Code Phon e Number [facility] [phone] LABS (ABNORMAL) Glucose by meter (02/06/2014 3:21 AM CDT) P athologist Signature Glucose 216 (H) 60 - 99 POINT OF CARE mg/dL TEST, GLUCOSE Specimen Anatomical Collection Method Collection Time Receive d Time (Source) Location / / Volume Laterality 02/06/2014 3:21 AM 4 3:25 CDT AM CDT Migel Merchant MD LAB - BEAKER POCT Performing Organization Address City/[facility]/ZIP Code Phon e Number FV POINT OF CARE TEST, GLUCOSE POINT OF CARE TEST, GLUCOSE (ABNORMAL) Hemoglobin (02/06/2014 1:02 AM CDT) P athologist Signature Hemoglobin 10.2 (L) 13.3 - [facility] 17.7 g/dL [place] LABS Specimen Anatomical Collection Method Collection Time Receive d Time (Source) Location / / Volume Laterality Blood specimen 02/06/2014 1:02 AM 014 1:11 (specimen) CDT AM CDT Deysi Alicea MD LAB - BLOOD ORDERABLES Performing Organization Address City/[facility]/ZIP Code Phon e Number [facility] [phone] LABS (ABNORMAL) Glucose by meter (02/05/2014 10:23 PM CDT) P athologist Signature Glucose 254 (H) 60 - 99 POINT OF CARE mg/dL TEST, GLUCOSE Specimen Anatomical Collection Method Collection Time Receive d Time (Source) Location / / Volume Laterality 02/05/2014 10:23 02/05/2014 PM CDT 10:25 PM CDT Migel LARES - BEAKER POCT Performing Organization Address City/State/ZIP Code Phon e Number FV POINT OF CARE TEST, GLUCOSE POINT OF CARE TEST, GLUCOSE Heparin 10a Level (02/05/2014 7:32 PM CDT) P athologist Signature Heparin 10A 0.64 IU/mL [facility] LABS Comment: Therapeutic Range: ?? UFH: ?? 0.15-0.35 IU/mL for low ?intensity dosing ?0.30-0.70 IU/mL for high ?intensity dosing ?? LMWH: ??1.00-2.00 IU/mL if 4-6 h ?post daily dosing ?0.60-1.00 IU/mL if 4-6 h ?post twice a day dosin g Specimen Anatomical Collection Method Collection Time Receive d Time (Source) Location / / Volume Laterality Blood specimen 02/05/2014 7:32 PM 014 7:36 (specimen) CDT PM CDT Mathew Rust MD LAB - BLOOD ORDERABLES Performing Organization Address City/[facility]/ZIP Code Phon e Number [phone] [place] [address] LABS (ABNORMAL) Glucose by meter (02/05/2014 6:04 PM CDT) P athologist Signature Glucose 232 (H) 60 - 99 POINT OF CARE mg/dL TEST, GLUCOSE Specimen Anatomical Collection Method Collection Time Receive d Time (Source) Location / / Volume Laterality 02/05/2014 6:04 PM 4 6:10 CDT PM CDT Migel LARES - BEAKER POCT Performing Organization Address City/[facility]/ZIP Code Phon e Number FV POINT OF CARE TEST, GLUCOSE POINT OF CARE TEST, GLUCOSE (ABNORMAL) Glucose by meter (02/05/2014 2:56 PM CDT) P athologist Signature Glucose 123 (H) 60 - 99 POINT OF CARE mg/dL TEST, GLUCOSE Specimen Anatomical Collection Method Collection Time Receive d Time (Source) Location / / Volume Laterality 02/05/2014 2:56 PM 4 3:00 CDT PM CDT Migel Merchant MD LAB - BEAKER POCT Performing Organization Address [facility] Phon e Number FV POINT OF CARE TEST, GLUCOSE POINT OF CARE TEST, GLUCOSE (ABNORMAL) Glucose by meter (02/05/2014 2:09 PM CDT) P athologist Signature Glucose 160 (H) 60 - 99 POINT OF CARE mg/dL TEST, GLUCOSE Specimen Anatomical Collection Method Collection Time Receive d Time (Source) Location / / Volume Laterality 02/05/2014 2:09 PM 4 2:15 CDT PM CDT Migel Merchant MD LAB - BEAKER POCT Performing Organization Address [facility] Phon e Number FV POINT OF CARE TEST, GLUCOSE POINT OF CARE TEST, GLUCOSE (ABNORMAL) Glucose by meter (02/05/2014 12:55 PM CDT) P athologist Signature Glucose 146 (H) 60 - 99 POINT OF CARE mg/dL TEST, GLUCOSE Specimen Anatomical Collection Method Collection Time Receive d Time (Source) Location / / Volume Laterality 02/05/2014 12:55 02/05/2014 1:00 PM CDT PM CDT Migel Merchant MD LAB - BEAKER POCT Performing Organization Address [facility] Phon e Number FV POINT OF CARE TEST, GLUCOSE POINT OF CARE TEST, GLUCOSE (ABNORMAL) INR (02/05/2014 12:04 PM CDT) P athologist Signature INR 1.24 (H) 0.86 - 1.14 [facility] LABS Specimen Anatomical Collection Method Collection Time Receive d Time (Source) Location / / Volume Laterality Blood specimen 02/05/2014 12:04 4 (specimen) PM CDT 12:10 PM CDT Teresa Wright [facility] LAB - BLOOD ORDERABLES Performing Organization Address City/[facility] Phon e Number [facility] [phone] LABS (ABNORMAL) CBC with platelets (02/05/2014 12:04 PM CDT) Patholo gist Method Time Signature WBC 7.4 4.0 - 11.0 [facility] 10e9/L [facility] LABS RBC Count 3.31 (L) 4.4 - 5.9 [facility] 10e12/L [facility] LABS Hemoglobin 10.3 (L) 13.3 - [facility] 17.7 g/dL [facility] LABS Hematocrit 31.0 (L) 40.0 - [facility] 53.0 % [facility] LABS MCV 94 78 - 100 [facility] fl [facility] LABS MCH 31.1 26.5 - [facility] 33.0 pg [facility] LABS MCHC 33.2 31.5 - [facility] 36.5 g/dL [facility] LABS RDW 14.7 10.0 - [facility] 15.0 % [facility] LABS Platelet Count 91 (L) 150 - 450 [facility] 10e9/L [facility] LABS Specimen Anatomical Collection Method Collection Time Receive d Time (Source) Location / / Volume Laterality Blood specimen 02/05/2014 12:04 4 (specimen) PM CDT 12:10 PM CDT Omaira Chavez PA-C LAB - BLOOD ORDERABLES Performing Organization Address City/[facility]/ZIP Code Phon e Number [phone] [place] [address] LABS (ABNORMAL) Glucose by meter (02/05/2014 11:25 AM CDT) athologist Signature Glucose 190 (H) 60 - 99 POINT OF CARE mg/dL TEST, GLUCOSE Specimen Anatomical Collection Method Collection Time Receive d Time (Source) Location / / Volume Laterality 02/05/2014 11:25 02/05/2014 AM CDT 11:30 AM CDT Migel Merchant MD LAB - BEAKER POCT Performing Organization Address City/State/ZIP Code Phon e Number FV POINT OF CARE TEST, GLUCOSE POINT OF CARE TEST, GLUCOSE (ABNORMAL) Glucose by meter (02/05/2014 10:35 AM CDT) athologist Signature Glucose 213 (H) 60 - 99 POINT OF CARE mg/dL TEST, GLUCOSE Specimen Anatomical Collection Method Collection Time Receive d Time (Source) Location / / Volume Laterality 02/05/2014 10:35 02/05/2014 AM CDT 10:39 AM CDT Migel Merchant MD LAB - BEAKER POCT Performing Organization Address City/State/ZIP Code Phon e Number FV POINT OF CARE TEST, GLUCOSE POINT OF CARE TEST, GLUCOSE (ABNORMAL) Glucose by meter (02/05/2014 9:43 AM CDT) athologist Signature Glucose 150 (H) 60 - 99 POINT OF CARE mg/dL TEST, GLUCOSE Specimen Anatomical Collection Method Collection Time Receive d Time (Source) Location / / Volume Laterality 02/05/2014 9:43 AM 4 9:45 CDT AM CDT Migel Merchant MD LAB - BEAKER POCT Performing Organization Address City/State/ZIP Code Phon e Number FV POINT OF CARE TEST, GLUCOSE POINT OF CARE TEST, GLUCOSE (ABNORMAL) Glucose by meter (02/05/2014 8:23 AM CDT) athologist Signature Glucose 141 (H) 60 - 99 POINT OF CARE mg/dL TEST, GLUCOSE Specimen Anatomical Collection Method Collection Time Receive d Time (Source) Location / / Volume Laterality 02/05/2014 8:23 AM 4 8:25 CDT AM CDT Migel Merchant MD LAB - BEAKER POCT Performing Organization Address City/State/ZIP Code Phon e Number FV POINT OF CARE TEST, GLUCOSE POINT OF CARE TEST, GLUCOSE (ABNORMAL) Basic metabolic panel (02/05/2014 7:02 AM CDT) [facility] gist Method Time Signature Sodium 143 133 - 144 [facility] mmol/L [facility] Potassium 4.3 3.4 - 5.3 [facility] mmol/L [facility] [place] LABS Chloride 107 94 - 109 [facility] mmol/L [facility] LABS Carbon Dioxide 25 20 - 32 [facility] mmol/L [facility] LABS Anion Gap 10 6 - 17 [facility] mmol/L [facility] LABS Glucose 123 (H) 60 - 99 [facility] mg/dL [facility] LABS Urea Nitrogen 66 (H) 7 - 30 [facility] mg/dL [facility] LABS Creatinine 4.77 (H) 0.66 - [facility] 1.25 mg/dL [facility] [place] LABS GFR Estimate 12 (L) >60 [facility] mL/min/1.7 [facility] LABS GFR Estimate If 15 (L) >60 [facility] Black mL/min/1.7 [facility] LABS Calcium 9.4 8.5 - 10.4 [facility] mg/dL [facility] LABS Specimen Anatomical Collection Method Collection Time Receive d Time (Source) Location / / Volume Laterality Blood specimen 02/05/2014 7:02 AM 014 7:05 (specimen) CDT AM CDT Omaira Chavez PA-C LAB - BLOOD ORDERABLES Performing Organization Address City/[facility]/ZIP Code Phon e Number [address] LABS (ABNORMAL) Phosphorus (02/05/2014 7:02 AM CDT) P athologist Signature Phosphorus 5.7 (H) 2.5 - 4.5 [facility] mg/dL [place] LABS Specimen Anatomical Collection Method Collection Time Receive d Time (Source) Location / / Volume Laterality Blood specimen 02/05/2014 7:02 AM 014 7:05 (specimen) CDT AM CDT Omaira Chavez PA-C LAB - BLOOD ORDERABLES Performing Organization Address City/[facility]/ZIP Code Phon e Number [address] LABS Magnesium (02/05/2014 7:02 AM CDT) P athologist Signature Magnesium 2.0 1.6 - 2.3 [facility] mg/dL [place] LABS Specimen Anatomical Collection Method Collection Time Receive d Time (Source) Location / / Volume Laterality Blood specimen 02/05/2014 7:02 AM 014 7:05 (specimen) CDT AM CDT Omaira Chavez PA-C LAB - BLOOD ORDERABLES Performing Organization Address City/[facility]/ZIP Code Phon e Number [address] LABS (ABNORMAL) CBC with platelets differential (02/05/2014 7:02 AM CDT) Patholo gist Method Time Signature WBC 8.9 4.0 - [facility] 11.0 [place] 10e9/L [place] LABS RBC Count 3.20 (L) 4.4 - 5.9 [facility] 10e12/L [facility] LABS Hemoglobin 9.7 (L) 13.3 - [facility] 17.7 g/dL [facility] LABS Hematocrit 30.0 (L) 40.0 - [facility] 53.0 % [facility] LABS MCV 94 78 - 100 [facility] fl [facility] [place] LABS MCH 30.3 26.5 - [facility] 33.0 pg [facility] LABS MCHC 32.3 31.5 - [facility] 36.5 g/dL [facility] LABS RDW 14.6 10.0 - [facility] 15.0 % [facility] LABS Platelet Count 96 (L) 150 - 450 [facility] 10e9/L [facility] LABS Diff Method Automated [facility] Method [facility] LABS % Neutrophils 90.2 % [facility] LABS % Lymphocytes 4.4 % [facility] LABS % Monocytes 5.2 % [facility] LABS % Eosinophils 0.0 % [facility] LABS % Basophils 0.0 % [facility] LABS % Immature 0.2 % [facility] Granulocytes [facility] LABS Absolute 8.1 1.6 - 8.3 [facility] Neutrophil 10e9/L [facility] LABS Absolute 0.4 (L) 0.8 - 5.3 [facility] Lymphocytes 10e9/L [facility] LABS Absolute 0.5 0.0 - 1.3 [facility] Monocytes 10e9/L [facility] LABS Absolute 0.0 0.0 - 0.7 [facility] Eosinophils 10e9/L [facility] LABS Absolute 0.0 0.0 - 0.2 [facility] Basophils 10e9/L [facility] LABS Abs Immature 0.0 0 - 0.4 [facility] Granulocytes 10e9/L [facility] LABS Specimen Anatomical Collection Method Collection Time Receive d Time (Source) Location / / Volume Laterality Blood specimen 02/05/2014 7:02 AM 014 7:05 (specimen) CDT AM CDT Omaira Chavez PA-C LAB - BLOOD ORDERABLES Performing Organization Address City/State/ZIP Code Phon e Number [facility] [address] [place] [address] [facility] LABS (ABNORMAL) Parathormone intact (02/05/2014 7:02 AM CDT) Patholo gist Method Time Signature Parathyroid 362 (H) 12 - 72 [facility] Hormone Intact pg/mL [facility] LABS Specimen Anatomical Collection Method Collection Time Receive d Time (Source) Location / / Volume Laterality Blood specimen 02/05/2014 7:02 AM 014 7:05 (specimen) CDT AM CDT Sina Robison MD LAB - BLOOD ORDERABLES Performing Organization Address City/[facility]/ZIP Code Phon e Number [facility] [address] LABS (ABNORMAL) Ferritin (02/05/2014 7:02 AM CDT) athologist Signature Ferritin 932 (H) 20 - 300 [facility] ng/mL [place] LABS Specimen Anatomical Collection Method Collection Time Receive d Time (Source) Location / / Volume Laterality Blood specimen 02/05/2014 7:02 AM 014 7:05 (specimen) CDT AM CDT Sina Robison MD LAB - BLOOD ORDERABLES Performing Organization Address City/State/ZIP Code Phon e Number [facility] [address] LABS (ABNORMAL) Iron and iron binding capacity (02/05/2014 7:02 AM CDT) Analysis Performed At Patho logist Time Signature Iron 119 35 - 180 [facility] ug/dL [facility] LABS Iron Binding 207 (L) 240 - 430 [facility] Cap ug/dL [facility] LABS Iron Saturation 58 (H) 15 - 46 % [facility] Index [facility] LABS Specimen Anatomical Collection Method Collection Time Receive d Time (Source) Location / / Volume Laterality Blood specimen 02/05/2014 7:02 AM 014 7:05 (specimen) CDT AM CDT Sina Robison MD LAB - BLOOD ORDERABLES Performing Organization Address City/[facility]/ZIP Code Phon e Number [facility] [address] LABS (ABNORMAL) Glucose by meter (02/05/2014 6:59 AM CDT) P athologist Signature Glucose 123 (H) 60 - 99 POINT OF CARE mg/dL TEST, GLUCOSE Specimen Anatomical Collection Method Collection Time Receive d Time (Source) Location / / Volume Laterality 02/05/2014 6:59 AM 4 7:05 CDT AM CDT Migel LARES - ROBERT POCT Performing Organization Address City/State/ZIP Code Phon e Number FV POINT OF CARE TEST, GLUCOSE POINT OF CARE TEST, GLUCOSE (ABNORMAL) Glucose by meter (02/05/2014 6:01 AM CDT) P athologist Signature Glucose 132 (H) 60 - 99 POINT OF CARE mg/dL TEST, GLUCOSE Specimen Anatomical Collection Method Collection Time Receive d Time (Source) Location / / Volume Laterality 02/05/2014 6:01 AM 4 6:05 CDT AM CDT Migel Merchant MD LAB - BEAJ POCT Performing Organization Address [facility] Code Phon e Number FV POINT OF CARE TEST, GLUCOSE POINT OF CARE TEST, GLUCOSE (ABNORMAL) Glucose by meter (02/05/2014 5:06 AM CDT) P athologist Signature Glucose 153 (H) 60 - 99 POINT OF CARE mg/dL TEST, GLUCOSE Specimen Anatomical Collection Method Collection Time Receive d Time (Source) Location / / Volume Laterality 02/05/2014 5:06 AM 4 5:10 CDT AM CDT Migel LARES - BEAJ POCT Performing Organization Address City/[facility] Code Phon e Number FV POINT OF CARE TEST, GLUCOSE POINT OF CARE TEST, GLUCOSE (ABNORMAL) Glucose by meter (02/05/2014 4:04 AM CDT) P athologist Signature Glucose 151 (H) 60 - 99 POINT OF CARE mg/dL TEST, GLUCOSE Specimen Anatomical Collection Method Collection Time Receive d Time (Source) Location / / Volume Laterality 02/05/2014 4:04 AM 4 4:10 CDT AM CDT Migel LARES - BEAJ POCT Performing Organization Address City/[facility] Code Phon e Number FV POINT OF CARE TEST, GLUCOSE POINT OF CARE TEST, GLUCOSE (ABNORMAL) Glucose by meter (02/05/2014 3:03 AM CDT) P athologist Signature Glucose 121 (H) 60 - 99 POINT OF CARE mg/dL TEST, GLUCOSE Specimen Anatomical Collection Method Collection Time Receive d Time (Source) Location / / Volume Laterality 02/05/2014 3:03 AM 4 3:05 CDT AM CDT Migel Merchant MD LAB - BEAJ POCT Performing Organization Address City/[facility] Phon e Number FV POINT OF CARE TEST, GLUCOSE POINT OF CARE TEST, GLUCOSE (ABNORMAL) Glucose by meter (02/05/2014 2:01 AM CDT) P athologist Signature Glucose 123 (H) 60 - 99 POINT OF CARE mg/dL TEST, GLUCOSE Specimen Anatomical Collection Method Collection Time Receive d Time (Source) Location / / Volume Laterality 02/05/2014 2:01 AM 4 2:05 CDT AM CDT Migel Merchant MD LAB - BEAJ POCT Performing Organization Address [facility] Phon e Number FV POINT OF CARE TEST, GLUCOSE POINT OF CARE TEST, GLUCOSE (ABNORMAL) Glucose by meter (02/05/2014 1:06 AM CDT) P athologist Signature Glucose 122 (H) 60 - 99 POINT OF CARE mg/dL TEST, GLUCOSE Specimen Anatomical Collection Method Collection Time Receive d Time (Source) Location / / Volume Laterality 02/05/2014 1:06 AM 4 1:10 CDT AM CDT Migel Merchant MD LAB - BEAJ POCT Performing Organization Address [facility] Phon e Number FV POINT OF CARE TEST, GLUCOSE POINT OF CARE TEST, GLUCOSE (ABNORMAL) Glucose by meter (02/05/2014 12:09 AM CDT) P athologist Signature Glucose 136 (H) 60 - 99 POINT OF CARE mg/dL TEST, GLUCOSE Specimen Anatomical Collection Method Collection Time Receive d Time (Source) Location / / Volume Laterality 02/05/2014 12:09 02/05/2014 AM CDT 12:15 AM CDT Migel LARES - BEAJ POCT Performing Organization Address [facility] Phon e Number FV POINT OF CARE TEST, GLUCOSE POINT OF CARE TEST, GLUCOSE EKG 12-lead, complete (02/04/2014 11:09 PM CDT) Patholo gist Method Time Signature Interpretation ECG Click View RADIOLOGY Image link RESULTS to view waveform and result Specimen (Source) Anatomical Collection Method Collection Time Re ceived Time Location / / Volume Laterality 02/04/2014 11:09 PM CDT Chemo Carr MD ECG ORDERABLES Performing Organization Address [facility] Phon e Number RADIOLOGY RESULTS (ABNORMAL) Glucose by meter (02/04/2014 10:56 PM CDT) P athologist Signature Glucose 161 (H) 60 - 99 POINT OF CARE mg/dL TEST, GLUCOSE Specimen Anatomical Collection Method Collection Time Receive d Time (Source) Location / / Volume Laterality 02/04/2014 10:56 02/04/2014 PM CDT 11:00 PM CDT Migel LARES - ROBERT POCT Performing Organization Address [facility] Phon e Number FV POINT OF CARE TEST, GLUCOSE POINT OF CARE TEST, GLUCOSE (ABNORMAL) Glucose by meter (02/04/2014 9:58 PM CDT) P athologist Signature Glucose 177 (H) 60 - 99 POINT OF CARE mg/dL TEST, GLUCOSE Specimen Anatomical Collection Method Collection Time Receive d Time (Source) Location / / Volume Laterality 02/04/2014 9:58 PM 4 CDT 10:05 PM CDT Migel LARES - ROBERT POCT Performing Organization Address [facility] Phon e Number FV POINT OF CARE TEST, GLUCOSE POINT OF CARE TEST, GLUCOSE (ABNORMAL) Glucose by meter (02/04/2014 9:06 PM CDT) P athologist Signature Glucose 226 (H) 60 - 99 POINT OF CARE mg/dL TEST, GLUCOSE Specimen Anatomical Collection Method Collection Time Receive d Time (Source) Location / / Volume Laterality 02/04/2014 9:06 PM 4 9:10 CDT PM CDT Migel JONES POCT Performing Organization Address [facility] Phon e Number FV POINT OF CARE TEST, GLUCOSE POINT OF CARE TEST, GLUCOSE (ABNORMAL) Glucose by meter (02/04/2014 7:57 PM CDT) P athologist Signature Glucose 167 (H) 60 - 99 POINT OF CARE mg/dL TEST, GLUCOSE Specimen Anatomical Collection Method Collection Time Receive d Time (Source) Location / / Volume Laterality 02/04/2014 7:57 PM 4 8:00 CDT PM CDT Migel Merchant MD LAB - BEAKER POCT Performing Organization Address City/State/ZIP Code Phon e Number FV POINT OF CARE TEST, GLUCOSE POINT OF CARE TEST, GLUCOSE Troponin I (02/04/2014 7:10 PM CDT) athologist Signature Troponin I 0.016 0.000 - [facility] 0.034 ug/L [place] LABS Specimen Anatomical Collection Method Collection Time Receive d Time (Source) Location / / Volume Laterality Blood specimen 02/04/2014 7:10 PM 014 7:23 (specimen) CDT PM CDT Adeline Diaz MD LAB - BLOOD ORDERABLES Performing Organization Address City/[facility]/ZIP Code Phon e Number [phone] [place] [address] LABS (ABNORMAL) Glucose by meter (02/04/2014 7:01 PM CDT) P athologist Signature Glucose 157 (H) 60 - 99 POINT OF CARE mg/dL TEST, GLUCOSE Specimen Anatomical Collection Method Collection Time Receive d Time (Source) Location / / Volume Laterality 02/04/2014 7:01 PM 4 7:05 CDT PM CDT Migel Merchant MD LAB - BEAKER POCT Performing Organization Address City/State/ZIP Code Phon e Number FV POINT OF CARE TEST, GLUCOSE POINT OF CARE TEST, GLUCOSE (ABNORMAL) Glucose by meter (02/04/2014 6:13 PM CDT) P athologist Signature Glucose 166 (H) 60 - 99 POINT OF CARE mg/dL TEST, GLUCOSE Specimen Anatomical Collection Method Collection Time Receive d Time (Source) Location / / Volume Laterality 02/04/2014 6:13 PM 4 6:15 CDT PM CDT Migel Merchant MD LAB - BEAKER POCT Performing Organization Address City/State/ZIP Code Phon e Number FV POINT OF CARE TEST, GLUCOSE POINT OF CARE TEST, GLUCOSE (ABNORMAL) Glucose by meter (02/04/2014 5:05 PM CDT) P athologist Signature Glucose 135 (H) 60 - 99 POINT OF CARE mg/dL TEST, GLUCOSE Specimen Anatomical Collection Method Collection Time Receive d Time (Source) Location / / Volume Laterality 02/04/2014 5:05 PM 4 5:10 CDT PM CDT Migel Merchant MD LAB - BEAKER POCT Performing Organization Address City/State/ZIP Code Phon e Number FV POINT OF CARE TEST, GLUCOSE POINT OF CARE TEST, GLUCOSE ECHO COMPLETE WITH OPTISON (02/04/2014 4:43 PM CDT) Anatomical Region Laterality Modality Echocardiography Specimen (Source) Anatomical Collection Method Collection Time Re ceived Time Location / / Volume Laterality 02/04/2014 3:49 PM CDT Narrative 02/05/2014 9:13 AM CDT Interpretation Summary Technically difficult study. Extremely d ifficult acoustic windows despite the use of contrast for endcardial border de finition. Global and regional left ventricular function is normal with an E F of 55-60%. PatientHeight: 72 in PatientWeight: 285 lbs SystolicPressure: 133 mmHg DiastolicPressure: 79 mmHg BSA 2.5 m^2 Procedure Complete Portable Echo Adult. Contrast Optison. Technically difficult study.Extremely di fficult acoustic windows despite the use of contrast for endcardial border de finition. Left Ventricle Global and regional left ventricular fun ction is normal with an EF of 55-60%. Right Ventricle Right ventricular function cannot be ass essed due to poor image quality. Atria The atria cannot be assessed. Mitral Valve Mild mitral annular calcification is pre sent. Aortic Valve Mild aortic valve sclerosis is present. Tricuspid Valve Pulmonary artery systolic pressure canno t be assessed. Pulmonic Valve The pulmonic valve cannot be assessed. Vessels The inferior vena cava ??is normal. Pericardium No pericardial effusion is present. MMode 2D Measurements & Calculations IVSd: 1.1 cm LVIDd: 5.4 cm LVIDs: 3.6 cm LVPWd: 1.0 cm FS: 34 % LV mass(C)d: 226 grams LA dimension: 3.9 cm asc Aorta: 3.7 cm LVOT diam: 2.1 cm Interpreting Physician: ??Chance Wilkinson electronically signed on 02-05-2014 09:13:48 Procedure Note Jarad Cullen MD - 02/05/2014Fo rmatting of this note might be different from the original. Interpretation Summary Technically difficult study. Extremely d ifficult acoustic windows despite the use of contrast for endcardial border de finition. Global and regional left ventricular function is normal with an E F of 55-60%. PatientHeight: 72 in PatientWeight: 285 lbs SystolicPressure: 133 mmHg DiastolicPressure: 79 mmHg BSA 2.5 m^2 Procedure Complete Portable Echo Adult. Contrast Optison. Technically difficult study.Extremely di fficult acoustic windows despite the use of contrast for endcardial border de finition. Left Ventricle Global and regional left ventricular fun ction is normal with an EF of 55-60%. Right Ventricle Right ventricular function cannot be ass essed due to poor image quality. Atria The atria cannot be assessed. Mitral Valve Mild mitral annular calcification is pre sent. Aortic Valve Mild aortic valve sclerosis is present. Tricuspid Valve Pulmonary artery systolic pressure canno t be assessed. Pulmonic Valve The pulmonic valve cannot be assessed. Vessels The inferior vena cava is normal. Pericardium No pericardial effusion is present. MMode 2D Measurements & Calculations IVSd: 1.1 cm LVIDd: 5.4 cm LVIDs: 3.6 cm LVPWd: 1.0 cm FS: 34 % LV mass(C)d: 226 grams LA dimension: 3.9 cm asc Aorta: 3.7 cm LVOT diam: 2.1 cm Interpreting Physician: Jarad Cullen MD electronically signed on 02-05-2014 09:13:48 Omaira Chavez PA-C CV ECHO ORDERABLES Glucose by meter (02/04/2014 4:03 PM CDT) P athologist Signature Glucose 96 60 - 99 POINT OF CARE mg/dL TEST, GLUCOSE Specimen Anatomical Collection Method Collection Time Receive d Time (Source) Location / / Volume Laterality 02/04/2014 4:03 PM 4 4:10 CDT PM CDT Migel Merchant MD LAB - BEAKER POCT Performing Organization Address City/State/ZIP Code Phon e Number FV POINT OF CARE TEST, GLUCOSE POINT OF CARE TEST, GLUCOSE (ABNORMAL) Glucose by meter (02/04/2014 2:43 PM CDT) P athologist Signature Glucose 122 (H) 60 - 99 POINT OF CARE mg/dL TEST, GLUCOSE Specimen Anatomical Collection Method Collection Time Receive d Time (Source) Location / / Volume Laterality 02/04/2014 2:43 PM 4 2:45 CDT PM CDT Migel Merchant MD LAB - BEAKER POCT Performing Organization Address City/State/ZIP Code Phon e Number FV POINT OF CARE TEST, GLUCOSE POINT OF CARE TEST, GLUCOSE (ABNORMAL) Glucose by meter (02/04/2014 1:08 PM CDT) P athologist Signature Glucose 129 (H) 60 - 99 POINT OF CARE mg/dL TEST, GLUCOSE Comment: Dr/RN Notified Specimen Anatomical Collection Method Collection Time Receive d Time (Source) Location / / Volume Laterality 02/04/2014 1:08 PM 4 1:10 CDT PM CDT Migel Merchant MD LAB - BEAKER POCT Performing Organization Address City/State/ZIP Code Phon e Number FV POINT OF CARE TEST, GLUCOSE POINT OF CARE TEST, GLUCOSE Troponin I (02/04/2014 12:42 PM CDT) athologist Signature Troponin I 0.025 0.000 - [facility] 0.034 ug/L CAMPUS LABS Specimen Anatomical Collection Method Collection Time Receive d Time (Source) Location / / Volume Laterality Blood specimen 02/04/2014 12:42 4 (specimen) PM CDT 12:45 PM CDT Adeline Diaz MD LAB - BLOOD ORDERABLES Performing Organization Address City/State/ZIP Code Phon e Number [address] [address] [facility] LABS (ABNORMAL) Glucose by meter (02/04/2014 12:27 PM CDT) P athologist Signature Glucose 140 (H) 60 - 99 POINT OF CARE mg/dL TEST, GLUCOSE Specimen Anatomical Collection Method Collection Time Receive d Time (Source) Location / / Volume Laterality 02/04/2014 12:27 02/04/2014 PM CDT 12:30 PM CDT Migel Merchant MD LAB - BEAJ POCT Performing Organization Address [facility] Phon e Number FV POINT OF CARE TEST, GLUCOSE POINT OF CARE TEST, GLUCOSE (ABNORMAL) Glucose by meter (02/04/2014 10:56 AM CDT) P athologist Signature Glucose 152 (H) 60 - 99 POINT OF CARE mg/dL TEST, GLUCOSE Specimen Anatomical Collection Method Collection Time Receive d Time (Source) Location / / Volume Laterality 02/04/2014 10:56 02/04/2014 AM CDT 11:30 AM CDT Migel Merchant MD LAB - BEAJ POCT Performing Organization Address [facility] Phon e Number FV POINT OF CARE TEST, GLUCOSE POINT OF CARE TEST, GLUCOSE (ABNORMAL) Glucose by meter (02/04/2014 10:06 AM CDT) P athologist Signature Glucose 172 (H) 60 - 99 POINT OF CARE mg/dL TEST, GLUCOSE Specimen Anatomical Collection Method Collection Time Receive d Time (Source) Location / / Volume Laterality 02/04/2014 10:06 02/04/2014 AM CDT 10:10 AM CDT Migel Merchant MD LAB - BEAJ POCT Performing Organization Address [facility] Phon e Number FV POINT OF CARE TEST, GLUCOSE POINT OF CARE TEST, GLUCOSE EKG 12-lead, complete (02/04/2014 9:21 AM CDT) [facility] gist Method Time Signature Interpretation ECG Click View RADIOLOGY Image link RESULTS to view waveform and result Specimen (Source) Anatomical Collection Method Collection Time Re ceived Time Location / / Volume Laterality 02/04/2014 9:21 AM CDT Omaira Chavez PA-C ECG ORDERABLES Performing Organization Address [facility] Phon e Number RADIOLOGY RESULTS (ABNORMAL) Glucose by meter (02/04/2014 9:02 AM CDT) P athologist Signature Glucose 203 (H) 60 - 99 POINT OF CARE mg/dL TEST, GLUCOSE Specimen Anatomical Collection Method Collection Time Receive d Time (Source) Location / / Volume Laterality 02/04/2014 9:02 AM 4 9:05 CDT AM CDT Migel Merchant MD LAB - BEAKER POCT Performing Organization Address [facility] Phon e Number FV POINT OF CARE TEST, GLUCOSE POINT OF CARE TEST, GLUCOSE (ABNORMAL) Glucose by meter (02/04/2014 8:09 AM CDT) athologist Signature Glucose 204 (H) 60 - 99 POINT OF CARE mg/dL TEST, GLUCOSE Specimen Anatomical Collection Method Collection Time Receive d Time (Source) Location / / Volume Laterality 02/04/2014 8:09 AM 4 8:16 CDT AM CDT Migel Merchant MD LAB - BEAJ POCT Performing Organization Address [facility] Phon e Number FV POINT OF CARE TEST, GLUCOSE POINT OF CARE TEST, GLUCOSE (ABNORMAL) Glucose by meter (02/04/2014 7:08 AM CDT) athologist Signature Glucose 176 (H) 60 - 99 POINT OF CARE mg/dL TEST, GLUCOSE Specimen Anatomical Collection Method Collection Time Receive d Time (Source) Location / / Volume Laterality 02/04/2014 7:08 AM 4 7:10 CDT AM CDT Migel Merchant MD LAB - BEAJ POCT Performing Organization Address [facility] Phon e Number FV POINT OF CARE TEST, GLUCOSE POINT OF CARE TEST, GLUCOSE EKG 12-lead, complete (02/04/2014 7:03 AM CDT) [facility] Method Time Signature Interpretation ECG Click View RADIOLOGY Image link RESULTS to view waveform and result Specimen (Source) Anatomical Collection Method Collection Time Re ceived Time Location / / Volume Laterality 02/04/2014 7:03 AM CDT Caitlin Owens MD ECG ORDERABLES Performing Organization Address [facility] Phon e Number RADIOLOGY RESULTS (ABNORMAL) Glucose by meter (02/04/2014 6:09 AM CDT) athologist Signature Glucose 160 (H) 60 - 99 POINT OF CARE mg/dL TEST, GLUCOSE Specimen Anatomical Collection Method Collection Time Receive d Time (Source) Location / / Volume Laterality 02/04/2014 6:09 AM 4 6:15 CDT AM CDT Migel Merchant MD LAB - BEAKER POCT Performing Organization Address City/State/ZIP Code Phon e Number FV POINT OF CARE TEST, GLUCOSE POINT OF CARE TEST, GLUCOSE Troponin I (02/04/2014 5:49 AM CDT) P athologist Signature Troponin I ES <0.012 0.000 - [facility] [place] 0.034 ug/L CAMPUS LABS Specimen Anatomical Collection Method Collection Time Receive d Time (Source) Location / / Volume Laterality 02/04/2014 5:49 AM 4 5:51 CDT AM CDT Caitlin Owens MD LAB - BLOOD ORDERABLES Performing Organization Address City/State/ZIP Code Phon e Number [phone] [place] [address] [facility] LABS (ABNORMAL) Basic metabolic panel (02/04/2014 5:49 AM CDT) Patholo gist Method Time Signature Sodium 142 133 - 144 [facility] mmol/L [facility] Potassium 4.9 3.4 - 5.3 [facility] mmol/L [facility] Chloride 107 94 - 109 [facility] mmol/L [facility] [place] LABS Carbon Dioxide 23 20 - 32 [facility] mmol/L [facility] [place] [facility] Anion Gap 12 6 - 17 [facility] mmol/L [facility] [place] LABS Glucose 151 (H) 60 - 99 [facility] mg/dL [facility] LABS Urea Nitrogen 57 (H) 7 - 30 [facility] mg/dL [facility] [place] [facility]S Creatinine 5.94 (H) 0.66 - [facility] 1.25 mg/dL [facility] [place] LABS GFR Estimate 10 (L) >60 [facility] mL/min/1.7 [facility] m2 CAMPUS LABS GFR Estimate If 12 (L) >60 [facility] [place] mL/min/1.7 [place] m2 CAMPUS LABS Calcium 9.4 8.5 - 10.4 [facility] mg/dL [facility] LABS Specimen Anatomical Collection Method Collection Time Receive d Time (Source) Location / / Volume Laterality Blood specimen 02/04/2014 5:49 AM 014 5:51 (specimen) CDT AM CDT Omaira Chavez PA-C LAB - BLOOD ORDERABLES Performing Organization Address City/[facility]/ZIP Code Phon e Number [address] LABS (ABNORMAL) Phosphorus (02/04/2014 5:49 AM CDT) P athologist Signature Phosphorus 6.3 (H) 2.5 - 4.5 [facility] mg/dL [place] LABS Specimen Anatomical Collection Method Collection Time Receive d Time (Source) Location / / Volume Laterality Blood specimen 02/04/2014 5:49 AM 014 5:51 (specimen) CDT AM CDT Omaira Chavez PA-C LAB - BLOOD ORDERABLES Performing Organization Address City/[facility]/ZIP Code Phon e Number [address] LABS Magnesium (02/04/2014 5:49 AM CDT) athologist Signature Magnesium 2.1 1.6 - 2.3 [facility] mg/dL [place] LABS Specimen Anatomical Collection Method Collection Time Receive d Time (Source) Location / / Volume Laterality Blood specimen 02/04/2014 5:49 AM 014 5:51 (specimen) CDT AM CDT Omaira Chavez PA-C LAB - BLOOD ORDERABLES Performing Organization Address City/[facility]/ZIP Code Phon e Number [address] LABS (ABNORMAL) CBC with platelets differential (02/04/2014 5:49 AM CDT) [facility] Method Time Signature WBC 13.8 (H) 4.0 - [facility] 11.0 [place] 10e9/L [place] LABS RBC Count 3.10 (L) 4.4 - 5.9 [facility] 10e12/L [facility] LABS Hemoglobin 9.5 (L) 13.3 - [facility] 17.7 g/dL [facility] LABS Hematocrit 28.7 (L) 40.0 - [facility] 53.0 % [facility] LABS MCV 93 78 - 100 [facility] fl [facility] LABS MCH 30.6 26.5 - [facility] 33.0 pg [facility] LABS MCHC 33.1 31.5 - [facility] 36.5 g/dL [facility] LABS RDW 14.6 10.0 - [facility] 15.0 % [facility] LABS Platelet Count 91 (L) 150 - 450 [facility] 10e9/L [facility] LABS Diff Method Automated [facility] Method [facility] LABS % Neutrophils 95.8 % [facility] LABS % Lymphocytes 1.2 % [facility] LABS % Monocytes 2.8 % [facility]S % [facility]osinophils 0.0 % [facility] % Basophils 0.0 % [facility] % Immature 0.2 % [facility] Granulocytes [facility] LABS Absolute 13.2 (H) 1.6 - 8.3 [facility] Neutrophil 10e9/L [facility] LABS Absolute 0.2 (L) 0.8 - 5.3 [facility] Lymphocytes 10e9/L [facility] LABS Absolute 0.4 0.0 - 1.3 [facility] Monocytes 10e9/L [facility] LABS Absolute 0.0 0.0 - 0.7 [facility] Eosinophils 10e9/L [facility] LABS Absolute 0.0 0.0 - 0.2 [facility] Basophils 10e9/L [facility] LABS Abs Immature 0.0 0 - 0.4 [facility] Granulocytes 10e9/L [facility] LABS Specimen Anatomical Collection Method Collection Time Receive d Time (Source) Location / / Volume Laterality Blood specimen 02/04/2014 5:49 AM 014 5:51 (specimen) CDT AM CDT Omaira Chavez PA-C LAB - BLOOD ORDERABLES Performing Organization Address City/State/ZIP Code Phon e Number [phone] [place] [address] LABS (ABNORMAL) Glucose by meter (02/04/2014 5:33 AM CDT) P athologist Signature Glucose 155 (H) 60 - 99 POINT OF CARE mg/dL TEST, GLUCOSE Specimen Anatomical Collection Method Collection Time Receive d Time (Source) Location / / Volume Laterality 02/04/2014 5:33 AM 4 5:35 CDT AM CDT Migel Merchant MD LAB - BEAKER POCT Performing Organization Address City/State/ZIP Code Phon e Number FV POINT OF CARE TEST, GLUCOSE POINT OF CARE TEST, GLUCOSE (ABNORMAL) Glucose by meter (02/04/2014 3:54 AM CDT) P athologist Signature Glucose 129 (H) 60 - 99 POINT OF CARE mg/dL TEST, GLUCOSE Specimen Anatomical Collection Method Collection Time Receive d Time (Source) Location / / Volume Laterality 02/04/2014 3:54 AM 4 4:00 CDT AM CDT Migel Merchant MD LAB - BEAJ POCT Performing Organization Address [facility] Phon e Number FV POINT OF CARE TEST, GLUCOSE POINT OF CARE TEST, GLUCOSE (ABNORMAL) Glucose by meter (02/04/2014 3:01 AM CDT) P athologist Signature Glucose 122 (H) 60 - 99 POINT OF CARE mg/dL TEST, GLUCOSE Specimen Anatomical Collection Method Collection Time Receive d Time (Source) Location / / Volume Laterality 02/04/2014 3:01 AM 4 3:05 CDT AM CDT Migel LRAES - ROBERT POCT Performing Organization Address [facility] Phon e Number FV POINT OF CARE TEST, GLUCOSE POINT OF CARE TEST, GLUCOSE Glucose by meter (02/04/2014 1:44 AM CDT) P athologist Signature Glucose 99 60 - 99 POINT OF CARE mg/dL TEST, GLUCOSE Specimen Anatomical Collection Method Collection Time Receive d Time (Source) Location / / Volume Laterality 02/04/2014 1:44 AM 4 1:50 CDT AM CDT Migel LARES - ROBERT POCT Performing Organization Address [facility] Phon e Number FV POINT OF CARE TEST, GLUCOSE POINT OF CARE TEST, GLUCOSE (ABNORMAL) Glucose by meter (02/04/2014 12:07 AM CDT) P athologist Signature Glucose 126 (H) 60 - 99 POINT OF CARE mg/dL TEST, GLUCOSE Specimen Anatomical Collection Method Collection Time Receive d Time (Source) Location / / Volume Laterality 02/04/2014 12:07 02/04/2014 AM CDT 12:10 AM CDT Migel LARES - ROBERT POCT Performing Organization Address City/State/ZIP Code Phon e Number FV POINT OF CARE TEST, GLUCOSE POINT OF CARE TEST, GLUCOSE (ABNORMAL) Glucose by meter (02/03/2014 11:06 PM CDT) P athologist Signature Glucose 156 (H) 60 - 99 POINT OF CARE mg/dL TEST, GLUCOSE Specimen Anatomical Collection Method Collection Time Receive d Time (Source) Location / / Volume Laterality 02/03/2014 11:06 02/03/2014 PM CDT 11:10 PM CDT Migel LARES - ROBERT POCT Performing Organization Address City/State/ZIP Code Phon e Number FV POINT OF CARE TEST, GLUCOSE POINT OF CARE TEST, GLUCOSE Potassium (02/03/2014 10:16 PM CDT) athologist Signature Potassium 4.8 3.4 - 5.3 [facility] mmol/L CAMPUS LABS Specimen Anatomical Collection Method Collection Time Receive d Time (Source) Location / / Volume Laterality Blood specimen 02/03/2014 10:16 4 (specimen) PM CDT 10:19 PM CDT Caitlin Owens MD LAB - BLOOD ORDERABLES Performing Organization Address City/[facility]/ZIP Code Phon e Number [facility] [address] LABS (ABNORMAL) Hemoglobin (02/03/2014 10:16 PM CDT) athologist Signature Hemoglobin 9.4 (L) 13.3 - 17.7 [facility] g/dL CAMPUS LABS Specimen Anatomical Collection Method Collection Time Receive d Time (Source) Location / / Volume Laterality Blood specimen 02/03/2014 10:16 4 (specimen) PM CDT 10:19 PM CDT Caitlin Owens MD LAB - BLOOD ORDERABLES Performing Organization Address City/[facility]/ZIP Code Phon e Number [facility] [address] LABS (ABNORMAL) Glucose by meter (02/03/2014 9:55 PM CDT) P athologist Signature Glucose 167 (H) 60 - 99 POINT OF CARE mg/dL TEST, GLUCOSE Specimen Anatomical Collection Method Collection Time Receive d Time (Source) Location / / Volume Laterality 02/03/2014 9:55 PM 4 CDT 10:00 PM CDT Migel Merchant MD LAB - ROBERT POCT Performing Organization Address [facility]/ZIP Code Phon e Number FV POINT OF CARE TEST, GLUCOSE POINT OF CARE TEST, GLUCOSE (ABNORMAL) Glucose by meter (02/03/2014 9:03 PM CDT) P athologist Signature Glucose 140 (H) 60 - 99 POINT OF CARE mg/dL TEST, GLUCOSE Specimen Anatomical Collection Method Collection Time Receive d Time (Source) Location / / Volume Laterality 02/03/2014 9:03 PM 4 9:05 CDT PM CDT Migel Merchant MD LAB - ROBERT POCT Performing Organization Address [facility] Phon e Number FV POINT OF CARE TEST, GLUCOSE POINT OF CARE TEST, GLUCOSE (ABNORMAL) Glucose by meter (02/03/2014 8:06 PM CDT) P athologist Signature Glucose 128 (H) 60 - 99 POINT OF CARE mg/dL TEST, GLUCOSE Specimen Anatomical Collection Method Collection Time Receive d Time (Source) Location / / Volume Laterality 02/03/2014 8:06 PM 4 8:10 CDT PM CDT Migel Merchant MD LAB - BEAJ POCT Performing Organization Address [facility] Phon e Number FV POINT OF CARE TEST, GLUCOSE POINT OF CARE TEST, GLUCOSE (ABNORMAL) Glucose by meter (02/03/2014 7:08 PM CDT) P athologist Signature Glucose 111 (H) 60 - 99 POINT OF CARE mg/dL TEST, GLUCOSE Specimen Anatomical Collection Method Collection Time Receive d Time (Source) Location / / Volume Laterality 02/03/2014 7:08 PM 4 7:10 CDT PM CDT Migel Merchant MD LAB - BEAJ POCT Performing Organization Address [facility] Phon e Number FV POINT OF CARE TEST, GLUCOSE POINT OF CARE TEST, GLUCOSE Potassium (02/03/2014 6:52 PM CDT) P athologist Signature Potassium 4.7 3.4 - 5.3 [facility] mmol/L CAMPUS LABS Specimen Anatomical Collection Method Collection Time Receive d Time (Source) Location / / Volume Laterality Blood specimen 02/03/2014 6:52 PM 014 6:53 (specimen) CDT PM CDT Caitlin Owens MD LAB - BLOOD ORDERABLES Performing Organization Address City/[facility]/ZIP Code Phon e Number [address] LABS (ABNORMAL) Hemoglobin (02/03/2014 6:52 PM CDT) athologist Signature Hemoglobin 9.6 (L) 13.3 - 17.7 [facility] g/dL CAMPUS LABS Specimen Anatomical Collection Method Collection Time Receive d Time (Source) Location / / Volume Laterality Blood specimen 02/03/2014 6:52 PM 014 6:53 (specimen) CDT PM CDT Caitlin Owens MD LAB - BLOOD ORDERABLES Performing Organization Address [facility] Code Phon e Number [phone] [place] [address] LABS (ABNORMAL) Glucose by meter (02/03/2014 6:00 PM CDT) athologist Signature Glucose 140 (H) 60 - 99 POINT OF CARE mg/dL TEST, GLUCOSE Specimen Anatomical Collection Method Collection Time Receive d Time (Source) Location / / Volume Laterality 02/03/2014 6:00 PM 4 6:05 CDT PM CDT Migel Merchant MD LAB - BEAKER POCT Performing Organization Address City/[facility]/ZIP Code Phon e Number FV POINT OF CARE TEST, GLUCOSE POINT OF CARE TEST, GLUCOSE (ABNORMAL) Glucose by meter (02/03/2014 5:09 PM CDT) athologist Signature Glucose 154 (H) 60 - 99 POINT OF CARE mg/dL TEST, GLUCOSE Specimen Anatomical Collection Method Collection Time Receive d Time (Source) Location / / Volume Laterality 02/03/2014 5:09 PM 4 5:11 CDT PM CDT Migel Merchant MD LAB - BEAKER POCT Performing Organization Address City/State/ZIP Code Phon e Number FV POINT OF CARE TEST, GLUCOSE POINT OF CARE TEST, GLUCOSE (ABNORMAL) Glucose by meter (02/03/2014 4:00 PM CDT) P athologist Signature Glucose 175 (H) 60 - 99 POINT OF CARE mg/dL TEST, GLUCOSE Specimen Anatomical Collection Method Collection Time Receive d Time (Source) Location / / Volume Laterality 02/03/2014 4:00 PM 4 4:05 CDT PM CDT Migel Merchant MD LAB - BEAKER POCT Performing Organization Address City/State/ZIP Code Phon e Number FV POINT OF CARE TEST, GLUCOSE POINT OF CARE TEST, GLUCOSE (ABNORMAL) Glucose by meter (02/03/2014 2:44 PM CDT) P athologist Signature Glucose 121 (H) 60 - 99 POINT OF CARE mg/dL TEST, GLUCOSE Specimen Anatomical Collection Method Collection Time Receive d Time (Source) Location / / Volume Laterality 02/03/2014 2:44 PM 4 2:45 CDT PM CDT Migel LARES - BEAKER POCT Performing Organization Address City/State/ZIP Code Phon e Number FV POINT OF CARE TEST, GLUCOSE POINT OF CARE TEST, GLUCOSE Potassium (02/03/2014 1:41 PM CDT) P athologist Signature Potassium 4.7 3.4 - 5.3 [facility] mmol/L CAMPUS LABS Specimen Anatomical Collection Method Collection Time Receive d Time (Source) Location / / Volume Laterality Blood specimen 02/03/2014 1:41 PM 014 1:43 (specimen) CDT PM CDT Caitlin Owens MD LAB - BLOOD ORDERABLES Performing Organization Address City/State/ZIP Code Phon e Number [phone] [place] [address] LABS (ABNORMAL) Hemoglobin (02/03/2014 1:41 PM CDT) P athologist Signature Hemoglobin 9.8 (L) 13.3 - 17.7 [facility] g/dL CAMPUS LABS Specimen Anatomical Collection Method Collection Time Receive d Time (Source) Location / / Volume Laterality Blood specimen 02/03/2014 1:41 PM 2 014 1:43 (specimen) CDT PM CDT Caitlin Owens MD LAB - BLOOD ORDERABLES Performing Organization Address City/State/ZIP Code Phon e Number [address] [address] [facility] LABS (ABNORMAL) Glucose by meter (02/03/2014 1:10 PM CDT) P athologist Signature Glucose 135 (H) 60 - 99 POINT OF CARE mg/dL TEST, GLUCOSE Specimen Anatomical Collection Method Collection Time Receive d Time (Source) Location / / Volume Laterality 02/03/2014 1:10 PM 4 1:15 CDT PM CDT Migel LARES - BEAJ POCT Performing Organization Address City/[facility]/ZIP Code Phon e Number FV POINT OF CARE TEST, GLUCOSE POINT OF CARE TEST, GLUCOSE (ABNORMAL) Glucose by meter (02/03/2014 11:56 AM CDT) P athologist Signature Glucose 171 (H) 60 - 99 POINT OF CARE mg/dL TEST, GLUCOSE Specimen Anatomical Collection Method Collection Time Receive d Time (Source) Location / / Volume Laterality 02/03/2014 11:56 02/03/2014 AM CDT 12:00 PM CDT Migel LARES - BEAJ POCT Performing Organization Address City/State/ZIP Code Phon e Number FV POINT OF CARE TEST, GLUCOSE POINT OF CARE TEST, GLUCOSE (ABNORMAL) Glucose by meter (02/03/2014 11:07 AM CDT) P athologist Signature Glucose 158 (H) 60 - 99 POINT OF CARE mg/dL TEST, GLUCOSE Specimen Anatomical Collection Method Collection Time Receive d Time (Source) Location / / Volume Laterality 02/03/2014 11:07 02/03/2014 AM CDT 11:10 AM CDT Migel LARES - BEAJ POCT Performing Organization Address City/State/ZIP Code Phon e Number FV POINT OF CARE TEST, GLUCOSE POINT OF CARE TEST, GLUCOSE Potassium (02/03/2014 10:11 AM CDT) P athologist Signature Potassium 4.8 3.4 - 5.3 [facility] mmol/L CAMPUS LABS Specimen Anatomical Collection Method Collection Time Receive d Time (Source) Location / / Volume Laterality Blood specimen 02/03/2014 10:11 4 (specimen) AM CDT 10:23 AM CDT Caitlin Owens MD LAB - BLOOD ORDERABLES Performing Organization Address City/[facility]/ZIP Code Phon e Number [address] LABS (ABNORMAL) Hemoglobin (02/03/2014 10:11 AM CDT) P athologist Signature Hemoglobin 9.7 (L) 13.3 - 17.7 [facility] g/dL [place] LABS Specimen Anatomical Collection Method Collection Time Receive d Time (Source) Location / / Volume Laterality Blood specimen 02/03/2014 10:11 4 (specimen) AM CDT 10:23 AM CDT Caitlin Owens MD LAB - BLOOD ORDERABLES Performing Organization Address [facility] Phon e Number [address] LABS (ABNORMAL) Glucose by meter (02/03/2014 9:58 AM CDT) P athologist Signature Glucose 168 (H) 60 - 99 POINT OF CARE mg/dL TEST, GLUCOSE Specimen Anatomical Collection Method Collection Time Receive d Time (Source) Location / / Volume Laterality 02/03/2014 9:58 AM 4 CDT 10:00 AM CDT Migel Merchant MD LAB - BEAKER POCT Performing Organization Address City/[facility]/ZIP Code Phon e Number FV POINT OF CARE TEST, GLUCOSE POINT OF CARE TEST, GLUCOSE (ABNORMAL) Glucose by meter (02/03/2014 9:13 AM CDT) P athologist Signature Glucose 169 (H) 60 - 99 POINT OF CARE mg/dL TEST, GLUCOSE Specimen Anatomical Collection Method Collection Time Receive d Time (Source) Location / / Volume Laterality 02/03/2014 9:13 AM 4 9:15 CDT AM CDT Migel Merchant MD LAB - BEAKER POCT Performing Organization Address City/[facility]/ZIP Code Phon e Number FV POINT OF CARE TEST, GLUCOSE POINT OF CARE TEST, GLUCOSE US Renal Transplant (02/03/2014 8:39 AM CDT) Anatomical Region Laterality Modality Abdomen/Pelvis Ultrasound Specimen (Source) Anatomical Location Collection Method / Collectio n Time Received Time / Laterality Volume Impressions 02/03/2014 9:34 AM CDT IMPRESSION: ?Normal grayscale and 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 I have personally reviewed the examinati on and initial interpretation and I agree with the findings. AIRAM MONTANA MD Narrative 02/03/2014 9:34 AM CDT EXAMINATION: US RENAL TRANSPLANT ??02/03/2014 8:39 AM COMPARISON: None. HISTORY: To look for flow of the anastom osis FINDINGS: There is a right lower quadrant renal tr ansplant. No perinephric fluid collections are identified. There is no evidence for hydronephrosis. Doppler examination of the renal transpl ant was performed. The resistive indices within upper, mid, and lower arcuate arteries are 0.83, 0.79, and 0.75, respectively. The peak systolic velocities of the renal artery at the renal hilum, and anastomosis are 73, and 151 cm/sec, respectively. The renal vein is patent. The waveform of the common iliac artery above the anastomosi s is normal. The common iliac vein is patent above and below the renal anastomosis. Procedure Note Airam Montana MD - 02/03/2014Formatt ing of this note might be different from the original. EXAMINATION: US RENAL TRANSPLANT 02/04/20 14 8:39 AM COMPARISON: None. HISTORY: To look for flow of the anastom osis FINDINGS: There is a right lower quadrant renal tr ansplant. No perinephric fluid collections are identified. There is no evidence for hydronephrosis. Doppler examination of the renal transpl ant was performed. The resistive indices within upper, mid, and lower arcuate arteries are 0.83, 0.79, and 0.75, respectively. The peak systolic velocities of the renal artery at the renal hilum, and anastomosis are 73, and 151 cm/sec, respectively. The renal vein is patent. The waveform of the common iliac artery above the anastomosi s is normal. The common iliac vein is patent above and below the renal anastomosis. 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 I have personally reviewed the examinati on and initial interpretation and I agree with the findings. AIRAM MONTANA MD Jose Aguirre MD IMG US ORDERABLES (ABNORMAL) Glucose by meter (02/03/2014 8:06 AM CDT) P athologist Signature Glucose 176 (H) 60 - 99 POINT OF CARE mg/dL TEST, GLUCOSE Specimen Anatomical Collection Method Collection Time Receive d Time (Source) Location / / Volume Laterality 02/03/2014 8:06 AM 4 8:10 CDT AM CDT Migel LARES - ROBERT POCT Performing Organization Address City/[facility]/ZIP Code Phon e Number FV POINT OF CARE TEST, GLUCOSE POINT OF CARE TEST, GLUCOSE (ABNORMAL) Glucose by meter (02/03/2014 7:01 AM CDT) athologist Signature Glucose 166 (H) 60 - 99 POINT OF CARE mg/dL TEST, GLUCOSE Specimen Anatomical Collection Method Collection Time Receive d Time (Source) Location / / Volume Laterality 02/03/2014 7:01 AM 4 7:05 CDT AM CDT Migel LARES - ROBERT POCT Performing Organization Address City/[facility]/ZIP Code Phon e Number FV POINT OF CARE TEST, GLUCOSE POINT OF CARE TEST, GLUCOSE (ABNORMAL) Glucose by meter (02/03/2014 6:05 AM CDT) athologist Signature Glucose 192 (H) 60 - 99 POINT OF CARE mg/dL TEST, GLUCOSE Specimen Anatomical Collection Method Collection Time Receive d Time (Source) Location / / Volume Laterality 02/03/2014 6:05 AM 4 6:10 CDT AM CDT Migel LARES - ROBERT POCT Performing Organization Address City/State/ZIP Code Phon e Number FV POINT OF CARE TEST, GLUCOSE POINT OF CARE TEST, GLUCOSE (ABNORMAL) Basic metabolic panel (02/03/2014 5:38 AM CDT) [facility] gist Method Time Signature Sodium 141 133 - 144 [facility] mmol/L [facility] Potassium 4.4 3.4 - 5.3 [facility] mmol/L [facility] Chloride 105 94 - 109 [facility] mmol/L [facility] Carbon Dioxide 20 20 - 32 [facility] mmol/L [facility] Anion Gap 15 6 - 17 [facility] mmol/L [facility] Glucose 170 (H) 60 - 99 [facility] mg/dL [facility] Urea Nitrogen 49 (H) 7 - 30 [facility] mg/dL [facility] Creatinine 6.38 (H) 0.66 - [facility] 1.25 mg/dL [facility] GFR Estimate 9 (L) >60 [facility] mL/min/1.7 [place] m2 [place] [facility] GFR Estimate If 11 (L) >60 [facility] Black mL/min/1.7 [place] m2 CAMPUS LABS Calcium 9.1 8.5 - 10.4 [facility] mg/dL [facility] Specimen Anatomical Collection Method Collection Time Receive d Time (Source) Location / / Volume Laterality Blood specimen 02/03/2014 5:38 AM 014 5:40 (specimen) CDT AM CDT Omaira Chavez PA-C LAB - BLOOD ORDERABLES Performing Organization Address City/[facility]/ZIP Code Phon e Number [facility] [address] LABS (ABNORMAL) Phosphorus (02/03/2014 5:38 AM CDT) P athologist Signature Phosphorus 4.7 (H) 2.5 - 4.5 [facility] [place] mg/dL [place] [facility] Specimen Anatomical Collection Method Collection Time Receive d Time (Source) Location / / Volume Laterality Blood specimen 02/03/2014 5:38 AM 014 5:40 (specimen) CDT AM CDT Omaira Chavez PA-C LAB - BLOOD ORDERABLES Performing Organization Address City/State/ZIP Code Phon e Number [facility] [address] LABS Magnesium (02/03/2014 5:38 AM CDT) P athologist Signature Magnesium 2.0 1.6 - 2.3 [facility] [place] mg/dL [place] [facility] Specimen Anatomical Collection Method Collection Time Receive d Time (Source) Location / / Volume Laterality Blood specimen 02/03/2014 5:38 AM 014 5:40 (specimen) CDT AM CDT Omaira Chavez PA-C LAB - BLOOD ORDERABLES Performing Organization Address City/State/ZIP Code Phon e Number [id number] [place] [address] [facility] ([facility]AL) CBC with platelets differential (02/03/2014 5:38 AM CDT) [facility] gist Method Time Signature WBC 13.2 (H) 4.0 - [facility] 11.0 [facility] 10e9/L CAMPUS LABS RBC Count 3.20 (L) 4.4 - 5.9 [facility] 10e12/L [facility] Hemoglobin 9.9 (L) 13.3 - [facility] 17.7 g/dL [facility] Hematocrit 30.2 (L) 40.0 - [facility] 53.0 % [facility] MCV 94 78 - 100 [facility] fl [facility] MCH 30.9 26.5 - [facility] 33.0 pg [facility] MCHC 32.8 31.5 - [facility] 36.5 g/dL [facility] RDW 14.5 10.0 - [facility] 15.0 % [facility] Platelet Count 108 (L) 150 - 450 [facility] 10e9/L [facility] Diff Method Automated [facility] Method [facility] % Neutrophils 96.9 % [facility] LABS % Lymphocytes 0.7 % [facility] LABS % Monocytes 2.1 % [facility] LABS % Eosinophils 0.0 % [facility] LABS % Basophils 0.1 % [facility] % Immature 0.2 % [facility] Granulocytes [facility] Absolute 12.8 (H) 1.6 - 8.3 [facility] Neutrophil 10e9/L [facility] Absolute 0.1 (L) 0.8 - 5.3 [facility] Lymphocytes 10e9/L [facility] Absolute 0.3 0.0 - 1.3 [facility] Monocytes 10e9/L [facility] Absolute 0.0 0.0 - 0.7 [facility] Eosinophils 10e9/L [facility] Absolute 0.0 0.0 - 0.2 [facility] Basophils 10e9/L [facility] Abs Immature 0.0 0 - 0.4 [facility] Granulocytes 10e9/L [facility] Specimen Anatomical Collection Method Collection Time Receive d Time (Source) Location / / Volume Laterality Blood specimen 02/03/2014 5:38 AM 014 5:40 (specimen) CDT AM CDT Omaira Chavez PA-C LAB - BLOOD ORDERABLES Performing Organization Address City/[facility]/ZIP Code Phon e Number [facility] [address] LABS (ABNORMAL) Hemoglobin A1c (02/03/2014 5:38 AM CDT) Analysis Performed At Patho logist Time Signature Hemoglobin A1C 6.2 (H) 4.3 - 6.0 [facility] Specimen Anatomical Collection Method Collection Time Receive d Time (Source) Location / / Volume Laterality Blood specimen 02/03/2014 5:38 AM 014 5:40 (specimen) CDT AM CDT Caitlin Owens MD LAB - BLOOD ORDERABLES Performing Organization Address City/[facility]/ZIP Code Phon e Number [address] LABS (ABNORMAL) Glucose by meter (02/03/2014 5:05 AM CDT) P athologist Signature Glucose 176 (H) 60 - 99 POINT OF CARE mg/dL TEST, GLUCOSE Specimen Anatomical Collection Method Collection Time Receive d Time (Source) Location / / Volume Laterality 02/03/2014 5:05 AM 4 5:10 CDT AM CDT Migel Merchant MD LAB - BEAKER POCT Performing Organization Address City/[facility]/ZIP Code Phon e Number FV POINT OF CARE TEST, GLUCOSE POINT OF CARE TEST, GLUCOSE (ABNORMAL) Glucose by meter (02/03/2014 3:57 AM CDT) P athologist Signature Glucose 196 (H) 60 - 99 POINT OF CARE mg/dL TEST, GLUCOSE Specimen Anatomical Collection Method Collection Time Receive d Time (Source) Location / / Volume Laterality 02/03/2014 3:57 AM 4 4:00 CDT AM CDT Migel Merchant MD LAB - BEAKER POCT Performing Organization Address City/State/ZIP Code Phon e Number FV POINT OF CARE TEST, GLUCOSE POINT OF CARE TEST, GLUCOSE (ABNORMAL) Glucose by meter (02/03/2014 2:59 AM CDT) P athologist Signature Glucose 205 (H) 60 - 99 POINT OF CARE mg/dL TEST, GLUCOSE Specimen Anatomical Collection Method Collection Time Receive d Time (Source) Location / / Volume Laterality 02/03/2014 2:59 AM 4 3:05 CDT AM CDT Migel Merchant MD LAB - BEAKER POCT Performing Organization Address City/[facility]/ZIP Code Phon e Number FV POINT OF CARE TEST, GLUCOSE POINT OF CARE TEST, GLUCOSE (ABNORMAL) Glucose by meter (02/03/2014 2:00 AM CDT) athologist Signature Glucose 205 (H) 60 - 99 POINT OF CARE mg/dL TEST, GLUCOSE Specimen Anatomical Collection Method Collection Time Receive d Time (Source) Location / / Volume Laterality 02/03/2014 2:00 AM 4 2:05 CDT AM CDT Migel Merchant MD LAB - BEAKER POCT Performing Organization Address City/[facility]/ZIP Code Phon e Number FV POINT OF CARE TEST, GLUCOSE POINT OF CARE TEST, GLUCOSE Potassium (02/03/2014 1:18 AM CDT) athologist Signature Potassium 4.7 3.4 - 5.3 [facility] mmol/L CAMPUS LABS Specimen Anatomical Collection Method Collection Time Receive d Time (Source) Location / / Volume Laterality Blood specimen 02/03/2014 1:18 AM 014 1:20 (specimen) CDT AM CDT Caitlin Owens MD LAB - BLOOD ORDERABLES Performing Organization Address City/[facility]/ZIP Code Phon e Number [address] [phone] [facility] LABS (ABNORMAL) Hemoglobin (02/03/2014 1:18 AM CDT) athologist Signature Hemoglobin 9.8 (L) 13.3 - 17.7 [facility] g/dL [place] LABS Specimen Anatomical Collection Method Collection Time Receive d Time (Source) Location / / Volume Laterality Blood specimen 02/03/2014 1:18 AM 014 1:20 (specimen) CDT AM CDT Caitlin Owens MD LAB - BLOOD ORDERABLES Performing Organization Address City/State/ZIP Code Phon e Number [facility] [address] [place] [address] [facility] LABS (ABNORMAL) Glucose by meter (02/03/2014 1:16 AM CDT) P athologist Signature Glucose 186 (H) 60 - 99 POINT OF CARE mg/dL TEST, GLUCOSE Specimen Anatomical Collection Method Collection Time Receive d Time (Source) Location / / Volume Laterality 02/03/2014 1:16 AM 4 1:20 CDT AM CDT Migel Merchant MD LAB - BEAKER POCT Performing Organization Address City/State/ZIP Code Phon e Number FV POINT OF CARE TEST, GLUCOSE POINT OF CARE TEST, GLUCOSE (ABNORMAL) Glucose by meter (02/03/2014 12:09 AM CDT) P athologist Signature Glucose 169 (H) 60 - 99 POINT OF CARE mg/dL TEST, GLUCOSE Specimen Anatomical Collection Method Collection Time Receive d Time (Source) Location / / Volume Laterality 02/03/2014 12:09 02/03/2014 AM CDT 12:15 AM CDT Migel Merchant MD LAB - BEAKER POCT Performing Organization Address City/[facility]/ZIP Code Phon e Number FV POINT OF CARE TEST, GLUCOSE POINT OF CARE TEST, GLUCOSE XR Chest Port 1 View (02/02/2014 11:25 PM CDT) Anatomical Region Laterality Modality Chest Computed Radiography Specimen (Source) Anatomical Location Collection Method / Collectio n Time Received Time / Laterality Volume Impressions 02/03/2014 4:19 AM CDT Impression: 1. Left IJ catheter tip over the conflue nce of the left internal jugular and innominate veins. 2. Bilateral perihilar opacities, likely postoperative edema/atelectasis. I have personally reviewed the examinati on and initial interpretation and I agree with the findings. AIRAM MONTANA MD Narrative 02/03/2014 4:19 AM CDT XR CHEST PORT 1 VW, 02/02/2014 11:25 PM. Comparison: Plain film same day. History: Check line placement - Post-op Kidney Transplant. Findings: Left IJ catheter tip over the confluence of the left internal jugular and innominate veins. Low lung volumes. Bilateral perihilar opacities. Cardiac silhouette within normal limits. No definite pleural effusion. No pneumothorax on semiupright view. No concerning bone findings. Procedure Note Airam Montana MD - 02/03/2014Formatt ing of this note might be different from the original. XR CHEST PORT 1 VW, 02/02/2014 11:25 PM. Comparison: Plain film same day. History: Check line placement - Post-op Kidney Transplant. Findings: Left IJ catheter tip over the confluence of the left internal jugular and innominate veins. Low lung volumes. Bilateral perihilar opacities. Cardiac silhouette within normal limits. No definite pleural effusion. No pneumothorax on semiupright view. No concerning bone findings. IMPRESSION Impression: 1. Left IJ catheter tip over the conflue nce of the left internal jugular and innominate veins. 2. Bilateral perihilar opacities, likely postoperative edema/atelectasis. I have personally reviewed the examinati on and initial interpretation and I agree with the findings. AIRAM MONTANA MD Caitlin Owens MD IMG DIAGNOSTIC IMAGING ORDER MARYELLEN (ABNORMAL) Glucose by meter (02/02/2014 10:50 PM CDT) P athologist Signature Glucose 136 (H) 60 - 99 POINT OF CARE mg/dL TEST, GLUCOSE Specimen Anatomical Collection Method Collection Time Receive d Time (Source) Location / / Volume Laterality 02/02/2014 10:50 02/03/2014 PM CDT 12:15 AM CDT Migel Merchant MD LAB - BEAKER POCT Performing Organization Address City/State/ZIP Code Phon e Number FV POINT OF CARE TEST, GLUCOSE POINT OF CARE TEST, GLUCOSE Phosphorus (02/02/2014 10:50 PM CDT) P athologist Signature Phosphorus 4.4 2.5 - 4.5 [facility] mg/dL [place] LABS Specimen Anatomical Collection Method Collection Time Receive d Time (Source) Location / / Volume Laterality Blood specimen 02/02/2014 10:50 4 (specimen) PM CDT 11:06 PM CDT Caitlin Owens MD LAB - BLOOD ORDERABLES Performing Organization Address City/State/ZIP Code Phon e Number [facility] [address] [place] [address] [facility] LABS Magnesium (02/02/2014 10:50 PM CDT) P athologist Signature Magnesium 1.8 1.6 - 2.3 [facility]ITY mg/dL CAMPUS LABS Specimen Anatomical Collection Method Collection Time Receive d Time (Source) Location / / Volume Laterality Blood specimen 02/02/2014 10:50 4 (specimen) PM CDT 11:06 PM CDT Caitlin Owens MD LAB - BLOOD ORDERABLES Performing Organization Address City/[facility]/ZIP Code Phon e Number [facility] [address] [place] [address] [facility] LABS (ABNORMAL) Basic metabolic panel (02/02/2014 10:50 PM CDT) [facility] Method Time Signature Sodium 138 133 - 144 [facility] mmol/L [facility] LABS Potassium 4.5 3.4 - 5.3 [facility] mmol/L [facility] Chloride 104 94 - 109 [facility] mmol/L [facility] Carbon Dioxide 25 20 - 32 [facility] mmol/L [facility] Anion Gap 10 6 - 17 [facility] mmol/L [facility] Glucose 134 (H) 60 - 99 [facility] mg/dL [facility] Urea Nitrogen 44 (H) 7 - 30 [facility] mg/dL [facility] Creatinine 6.14 (H) 0.66 - [facility] 1.25 mg/dL [facility] GFR Estimate 9 (L) >60 [facility] mL/min/1.7 [place] m2 [facility]AMPUS LABS GFR Estimate If 11 (L) >60 [facility] Black mL/min/1.7 [place] m2 [facility]AMPUS LABS Calcium 8.8 8.5 - 10.4 [facility] mg/dL [facility] Specimen Anatomical Collection Method Collection Time Receive d Time (Source) Location / / Volume Laterality Blood specimen 02/02/2014 10:50 4 (specimen) PM CDT 11:06 PM CDT Caitlin Owens MD LAB - BLOOD ORDERABLES Performing Organization Address City/State/ZIP Code Phon e Number [facility] [address] [place] [address] [facility] LABS (ABNORMAL) CBC with platelets differential (02/02/2014 10:50 PM CDT) Patholo gist Method Time Signature WBC 8.2 4.0 - [facility] 11.0 [facility] 10e9/L [place] LAB[facility] RBC Count 3.34 (L) 4.4 - 5.9 [facility] 10e12/L [facility] Hemoglobin 10.3 (L) 13.3 - [facility] 17.7 g/dL [facility] Hematocrit 30.9 (L) 40.0 - [facility] 53.0 % [facility] MCV 93 78 - 100 [facility] fl [facility] MCH 30.8 26.5 - [facility] 33.0 pg [facility] MCHC 33.3 31.5 - [facility] 36.5 g/dL [facility] RDW 14.3 10.0 - [facility] 15.0 % [facility] Platelet Count 79 (L) 150 - 450 [facility] 10e9/L [facility] Diff Method Automated [facility] Method [facility] LAB[facility] % Neutrophils 96.7 % [facility] LAB[facility] % Lymphocytes 1.6 % [facility] % Monocytes 1.2 % [facility] % Eosinophils 0.4 % [facility] % Basophils 0.0 % [facility] % Immature 0.1 % [facility] Granulocytes [facility] Absolute 7.9 1.6 - 8.3 [facility] Neutrophil 10e9/L [facility] Absolute 0.1 (L) 0.8 - 5.3 [facility] Lymphocytes 10e9/L [facility] Absolute 0.1 0.0 - 1.3 [facility] Monocytes 10e9/L [facility] Absolute 0.0 0.0 - 0.7 [facility] Eosinophils 10e9/L [facility] Absolute 0.0 0.0 - 0.2 [facility] Basophils 10e9/L [facility] Abs Immature 0.0 0 - 0.4 [facility] Granulocytes 10e9/L [facility] Specimen Anatomical Collection Method Collection Time Receive d Time (Source) Location / / Volume Laterality Blood specimen 02/02/2014 10:50 4 (specimen) PM CDT 11:06 PM CDT Caitlin Owens MD LAB - BLOOD ORDERABLES Performing Organization Address City/State/ZIP Code Phon e Number [facility] [address] [place] [address] [facility] LAB[facility] (ABNORMAL) VENOUS PANEL (02/02/2014 10:09 PM CDT) Patholo gist Method Time Signature Ph Venous 7.31 (L) 7.32 - [facility] 7.43 pH [facility] PCO2 Venous 52 (H) 40 - 50 [facility] mm Hg [facility] PO2 Venous 34 25 - 47 [facility] mm Hg [facility] Bicarbonate 26 21 - 28 [facility] Venous mmol/L [facility] Base Deficit 0.3 mmol/L [facility] Venous [facility] Comment: Reference range: -7.7 to 1.9 FIO2 45 [facility] LABS Sodium 137 133 - 144 mmol/L [facility] LABS Potassium 4.4 3.4 - 5.3 mmol/L [facility] LABS Hemoglobin 10.0 (L) 13.3 - 17.7 g/dL [facility] LABS Glucose 116 (H) 60 - 99 mg/dL [facility] LABS Calcium Ionized Whole Blood 4.8 4.4 - 5.2 mg/dL [facility] LABS Specimen Anatomical Collection Method Collection Time Receive d Time (Source) Location / / Volume Laterality 02/02/2014 10:09 02/02/2014 PM CDT 10:14 PM CDT Migel Merchant MD LAB - BLOOD ORDERABLES Performing Organization Address City/State/ZIP Code Phon e Number [address] LABS (ABNORMAL) Glucose by meter (02/02/2014 9:24 PM CDT) P athologist Signature Glucose 129 (H) 60 - 99 POINT OF CARE mg/dL TEST, GLUCOSE Specimen Anatomical Collection Method Collection Time Receive d Time (Source) Location / / Volume Laterality 02/02/2014 9:24 PM 4 9:31 CDT PM CDT Migel Merchant MD LAB - BEAKER POCT Performing Organization Address City/State/ZIP Code Phon e Number [facility] POINT OF CARE TEST, GLUCOSE POINT OF CARE TEST, GLUCOSE (ABNORMAL) Glucose by meter (02/02/2014 8:13 PM CDT) P athologist Signature Glucose 130 (H) 60 - 99 POINT OF CARE mg/dL TEST, GLUCOSE Specimen Anatomical Collection Method Collection Time Receive d Time (Source) Location / / Volume Laterality 02/02/2014 8:13 PM 4 8:15 CDT PM CDT Migel Merchant MD LAB - BEAJ POCT Performing Organization Address City/State/ZIP Code Phon e Number FV POINT OF CARE TEST, GLUCOSE POINT OF CARE TEST, GLUCOSE (ABNORMAL) VENOUS PANEL (02/02/2014 6:40 PM CDT) athologist Signature Ph Venous 7.35 7.32 - [facility] 7.43 pH [facility] LAB[facility] PCO2 Venous 50 40 - 50 mm [facility] Hg [facility] PO2 Venous 46 25 - 47 mm [facility] Hg [facility] Bicarbonate 28 21 - 28 [facility] Venous mmol/L [facility] Base Excess 1.8 mmol/L [facility] Venous [facility] Comment: Reference range: -7.7 to 1.9 FIO2 100% [facility] US LABS Sodium 141 133 - 144 mmol/L [facility] LABS Potassium 3.7 3.4 - 5.3 mmol/L [facility] LABS Hemoglobin 10.3 (L) 13.3 - 17.7 g/dL [facility] LABS Glucose 76 60 - 99 mg/dL [facility] LABS Calcium Ionized Whole Blood 4.8 4.4 - 5.2 mg/dL [facility] LABS Specimen Anatomical Collection Method Collection Time Receive d Time (Source) Location / / Volume Laterality 02/02/2014 6:40 PM 4 6:44 CDT PM CDT Migel Merchant MD LAB - BLOOD ORDERABLES Performing Organization Address City/[facility]/ZIP Code Phon e Number [address] [address] [facility] LABS Glucose by meter (02/02/2014 5:11 PM CDT) athologist Signature Glucose 89 60 - 99 POINT OF CARE mg/dL TEST, GLUCOSE Specimen Anatomical Collection Method Collection Time Receive d Time (Source) Location / / Volume Laterality 02/02/2014 5:11 PM 4 5:15 CDT PM CDT Migel LARES - BEAJ POCT Performing Organization Address City/State/ZIP Code Phon e Number [facility] POINT OF CARE TEST, GLUCOSE POINT OF CARE TEST, GLUCOSE (ABNORMAL) Glucose by meter (02/02/2014 3:45 PM CDT) P athologist Signature Glucose 100 (H) 60 - 99 POINT OF CARE mg/dL TEST, GLUCOSE Specimen Anatomical Collection Method Collection Time Receive d Time (Source) Location / / Volume Laterality 02/02/2014 3:45 PM 4 3:50 CDT PM CDT Migel Merchant MD [facility] POCT Performing Organization Address City/State/ZIP Code Phon e Number [facility] POINT OF CARE TEST, GLUCOSE POINT OF CARE TEST, GLUCOSE XR Chest 2 Views (02/02/2014 2:50 PM CDT) Anatomical Region Laterality Modality Chest Computed Radiography Specimen (Source) Anatomical Location Collection Method / Collectio n Time Received Time / Laterality Volume Impressions 02/02/2014 4:19 PM CDT Impression: Mild bibasilar atelectasis. I have personally reviewed the examinati on and initial interpretation and I agree with the findings. AIRAM MONTANA MD Narrative 02/02/2014 4:19 PM CDT Exam: 2 views of the chest. 02/02/2014. Clinical history: Disease donor transpla nt. Comparison: 02/08/2012. Findings: Heart size is within normal li mits. Mild bibasilar atelectasis. ??No airspace or interstiti al opacities. No suspicious osseous lesions. Procedure Note Airam Montana MD - 02/02/2014Formatt ing of this note might be different from the original. Exam: 2 views of the chest. 02/02/2014. Clinical history: Disease donor transpla nt. Comparison: 02/08/2012. Findings: Heart size is within normal li mits. Mild bibasilar atelectasis. No airspace or interstitial opacities. No suspicious osseous lesions. IMPRESSION Impression: Mild bibasilar atelectasis. I have personally reviewed the examinati on and initial interpretation and I agree with the findings. AIRAM MONTANA MD Caitlin Owens MD IMG DIAGNOSTIC IMAGING ORDER MARYELLEN Blood component (02/02/2014 2:07 PM CDT) [facility] Method Time Signature Unit Number [id number] [facility] LABS Blood Red Blood [facility] Component Cells [facility] Leukocyte [place] [facility] Reduced Division 00 [facility] LABS Status of No longer [place] Unit available [facility] 02/06/2014 HOSPITAL LAB 0300 Specimen Anatomical Collection Method Collection Time Receive d Time (Source) Location / / Volume Laterality 02/02/2014 2:07 PM 4 2:10 CDT PM CDT Caitlin Owens MD LABORATORY Performing Organization Address City/[facility]/ZIP Code Phon santino Acevedo [place] [address] [address] [place], [place] [address] [facility] LABS [facility] LAB Blood component (02/02/2014 2:07 PM CDT) [facility] gist Method Time Signature Unit Number [id number] [facility] Blood Red Blood [facility] Component Cells [facility] LABS Reduced Division 00 [facility] LABS Status of No longer [place] Unit available [facility] 02/06/2014 HOSPITAL LAB 0300 Specimen Anatomical Collection Method Collection Time Receive d Time (Source) Location / / Volume Laterality 02/02/2014 2:07 PM 4 2:10 CDT PM CDT Caitlin Owens MD LABORATORY Performing Organization Address City/[facility] Code Phon santino Acevedo [place] [address] [address] [place], [place] [address] [facility] LAB ABO/Rh type and screen (02/02/2014 2:07 PM CDT) [facility] gist Method Time Signature Units Ordered 2 [facility] ABO A [facility] RH(D) Pos [facility] Antibody Neg [facility] Screen [facility] LAB[facility] Test Valid [facility] Only At [facility] BLOOD BANK Center,Aide LAB w Hospital Specimen 02/05/2014 [facility] BLOOD BANK LAB Crossmatch Red Blood [facility] Cells [facility] LABS Specimen Anatomical Collection Method Collection Time Receive d Time (Source) Location / / Volume Laterality Blood specimen 02/02/2014 2:07 PM 014 2:10 (specimen) CDT PM CDT Caitlin Owens MD LAB - BLOOD BANK TEST ORDER Performing Organization Address City/[facility]/ZIP Code Phon e Number [facility] [address] [place] [address] [facility] LABS [facility] BLOOD BANK LAB (ABNORMAL) Lipid Profile (02/02/2014 2:07 PM CDT) P athologist Signature Cholesterol 135 <200 mg/dL [facility] Comment: LDL Cholesterol is the primary guide to therapy. The NCEP recommends further evaluation of: patients with cholesterol greater than 200 mg/dL if additional risk facto rs are present, cholesterol greater than 240 mg/dL, triglycerides greater than 1 50 mg/dL, or HDL less than 40 mg/dL. Triglycerides 124 0 - 150 mg/dL [facility] LABS HDL Cholesterol 34 (L) >40 mg/dL [facility] LABS LDL Cholesterol Calculated 77 0 - 129 mg/dL [facility] Comment: LDL Cholesterol is the primary guide to therapy: LDL-cholesterol goal in high risk patients is <100 mg/dL and in very high risk patients is <70 mg/dL. VLDL-Cholesterol 25 0 - 30 mg/dL [facility] Cholesterol/HDL Ratio 4.0 0.0 - 5.0 [facility] LABS Specimen Anatomical Collection Method Collection Time Receive d Time (Source) Location / / Volume Laterality Blood specimen 02/02/2014 2:07 PM 014 2:08 (specimen) CDT PM CDT Caitlin Owens MD LAB - BLOOD ORDERABLES Performing Organization Address City/[facility]/ZIP Code Phon e Number [facility] [address] [place] [address] [facility] LABS (ABNORMAL) Hemoglobin A1c (02/02/2014 2:07 PM CDT) Analysis Performed At Patho logist Time Signature Hemoglobin A1C 6.2 (H) 4.3 - 6.0 [facility] LABS Specimen Anatomical Collection Method Collection Time Receive d Time (Source) Location / / Volume Laterality Blood specimen 02/02/2014 2:07 PM 014 2:08 (specimen) CDT PM CDT Caitlin Owens MD LAB - BLOOD ORDERABLES Performing Organization Address City/State/ZIP Code Phon e Number [facility] [address] [place] [address] [facility] LABS Hepatitis C antibody (02/02/2014 2:07 PM CDT) [facility] [place] [facility] Signature Hepatitis C Negative NEG [facility] Antibody MICROBIOLOGY Specimen Anatomical Collection Method Collection Time Receive d Time (Source) Location / / Volume Laterality Blood specimen 02/02/2014 2:07 PM 02/02/2 014 2:08 (specimen) CDT PM CDT Caitlin Owens MD LAB - BLOOD ORDERABLES Performing Organization Address City/[facility]/ZIP Code Phon e Number [facility] [address] [place] [address] [facility] MICROBIOLOGY Hepatitis B core antibody IgM (02/02/2014 2:07 PM CDT) [facility] [place] [facility] Signature Hepatitis B Negative NEG [facility] Core IgM MICROBIOLOGY Specimen Anatomical Collection Method Collection Time Receive d Time (Source) Location / / Volume Laterality Blood specimen 02/02/2014 2:07 PM 014 2:08 (specimen) CDT PM CDT Caitlin Owens MD LAB - BLOOD ORDERABLES Performing Organization Address City/State/ZIP Code Phon e Number [facility] [address] [place], [place] [id number] [place] [address] MICROBIOLOGY Hepatitis B surface antigen (02/02/2014 2:07 PM CDT) [facility] [place] [facility] Signature Hep B Surface Negative NEG [facility] Agn MICROBIOLOGY Specimen Anatomical Collection Method Collection Time Receive d Time (Source) Location / / Volume Laterality Blood specimen 02/02/2014 2:07 PM 014 2:08 (specimen) CDT PM CDT Caitlin Owens MD LAB - BLOOD ORDERABLES Performing Organization Address City/[facility]/ZIP Code Phon e Number [facility] [address] [place], [place] [id number] [place] [address] MICROBIOLOGY HIV Antigen Antibody Combo (02/02/2014 2:07 PM CDT) [facility] [place] [facility] Signature HIV Antigen Nonreactive NR [facility] Antibody HIV-1 p24 Ag & HIV-1/HIV-2 Ab Not Detected [facility] LABS Specimen Anatomical Collection Method Collection Time Receive d Time (Source) Location / / Volume Laterality Blood specimen 02/02/2014 2:07 PM 014 2:08 (specimen) CDT PM CDT Caitlin Owens MD LAB - BLOOD ORDERABLES Performing Organization Address City/[facility]/ZIP Code Phon e Number [address] LABS EBV Capsid Antibody IgM (02/02/2014 2:07 PM CDT) [facility] Method Time Signature EBV Capsid <0.2 0.0 - 0.8 [facility] Antibody IgM No detectable antibody. AI [facility] LABS Specimen Anatomical Collection Method Collection Time Receive d Time (Source) Location / / Volume Laterality Blood specimen 02/02/2014 2:07 PM 014 2:08 (specimen) CDT PM CDT Caitlin Owens MD LAB - BLOOD ORDERABLES Performing Organization Address [facility] Code Phon e Number [address] LABS (ABNORMAL) EBV Capsid Antibody IgG (02/02/2014 2:07 PM CDT) [facility] Method Time Signature EBV Capsid >8.0 0.0 - 0.8 [facility] Antibody IgG Positive, suggests recent or past exposure [facility] () [place] LABS Specimen Anatomical Collection Method Collection Time Receive d Time (Source) Location / / Volume Laterality Blood specimen 02/02/2014 2:07 PM 014 2:08 (specimen) CDT PM CDT Caitlin Owens MD LAB - BLOOD ORDERABLES Performing Organization Address City/[facility]/ZIP Code Phon e Number [address] LABS CMV antibody IgM (02/02/2014 2:07 PM CDT) [facility] CMV Antibody <0.2 0.0 - 0.8 [facility] IgM Negative [facility] LABS Specimen Anatomical Collection Method Collection Time Receive d Time (Source) Location / / Volume Laterality Blood specimen 02/02/2014 2:07 PM 014 2:08 (specimen) CDT PM CDT Caitlin Owens MD LAB - BLOOD ORDERABLES Performing Organization Address City/[facility]/[place] [address] [facility] LABS (ABNORMAL) CMV Antibody IgG (02/02/2014 2:07 PM CDT) P athologist Signature CMV Antibody 7.8 (H) 0.0 - 0.8 [facility] IgG AI [facility] LABS Comment: Positive Specimen Anatomical Collection Method Collection Time Receive d Time (Source) Location / / Volume Laterality Blood specimen 02/02/2014 2:07 PM 014 2:08 (specimen) CDT PM CDT Caitlin Owens MD LAB - BLOOD ORDERABLES Performing Organization Address City/State/ZIP Code Phon e Number [facility] [address] [place] [address] [facility] LABS (ABNORMAL) Comprehensive metabolic panel (02/02/2014 2:07 PM CDT) Patholo gist Method Time Signature Sodium 141 133 - 144 [facility] mmol/L [facility] LABS Potassium 4.2 3.4 - 5.3 [facility] mmol/L [facility] Chloride 101 94 - 109 [facility] mmol/L [facility]S Carbon Dioxide 26 20 - 32 [facility] mmol/L [facility]S Anion Gap 13 6 - 17 [facility] mmol/L [facility] Glucose 112 (H) 60 - 99 [facility] mg/dL [facility] LABS Urea Nitrogen 42 (H) 7 - 30 [facility] mg/dL [facility] LABS Creatinine 6.03 (H) 0.66 - [facility] 1.25 UNIVERSITY mg/dL CAMPUS LABS GFR Estimate 9 (L) >60 [facility] mL/min/1. [address] LABS GFR Estimate If 11 (L) >60 [facility] Black mL/min/1. [address] LABS Calcium 9.9 8.5 - [facility] 10.4 UNIVERSITY mg/dL CAMPUS LABS Bilirubin Total 0.7 0.2 - 1.3 [facility] mg/dL [facility] LABS Albumin 4.2 3.3 - 4.9 [facility] g/dL [facility] Protein Total 7.5 6.8 - 8.8 [facility] g/dL [facility] Alkaline 88 40 - 150 [facility] Phosphatase U/L [facility] ALT 33 0 - 70 [facility] U/L [facility] AST 18 0 - 45 [facility] U/L [facility] LABS Specimen Anatomical Collection Method Collection Time Receive d Time (Source) Location / / Volume Laterality Blood specimen 02/02/2014 2:07 PM 014 2:08 (specimen) CDT PM CDT Caitlin Owens MD LAB - BLOOD ORDERABLES Performing Organization Address City/State/ZIP Code Phon e Number [facility] [address] [place] [address] [facility] ([facility]NORM[facility]) CBC with platelets differential (02/02/2014 2:07 PM CDT) [facility] gist Method Time Signature WBC 6.3 4.0 - [facility] 11.0 UNIVERSITY 10e9/L CAMPUS LABS RBC Count 3.71 (L) 4.4 - 5.9 [facility] 10e12/L [facility] LABS Hemoglobin 11.5 (L) 13.3 - [facility] 17.7 g/dL [facility] LABS Hematocrit 33.7 (L) 40.0 - [facility] 53.0 % [facility] LABS MCV 91 78 - 100 [facility] fl [facility] LABS MCH 31.0 26.5 - [facility] 33.0 pg [facility] LABS MCHC 34.1 31.5 - [facility] 36.5 g/dL [facility] LABS RDW 14.0 10.0 - [facility] 15.0 % UNIVERSITY [place] LABS Platelet Count 110 (L) 150 - 450 [facility] 10e9/L [facility] Diff Method Automated [facility] Method [facility] LABS % Neutrophils 52.4 % [facility] LABS % Lymphocytes 32.1 % [facility] LABS % Monocytes 7.9 % [facility] LABS % Eosinophils 7.1 % [facility] LABS % Basophils 0.3 % [facility] LABS % Immature 0.2 % [facility] Granulocytes [facility] LABS Absolute 3.3 1.6 - 8.3 [facility] Neutrophil 10e9/L [facility] Absolute 2.0 0.8 - 5.3 [facility] Lymphocytes 10e9/L [facility] Absolute 0.5 0.0 - 1.3 [facility] Monocytes 10e9/L [facility] Absolute 0.5 0.0 - 0.7 [facility] Eosinophils 10e9/L [facility] Absolute 0.0 0.0 - 0.2 [facility] Basophils 10e9/L [facility] Abs Immature 0.0 0 - 0.4 [facility] Granulocytes 10e9/L [facility] LABS Specimen Anatomical Collection Method Collection Time Receive d Time (Source) Location / / Volume Laterality Blood specimen 02/02/2014 2:07 PM 014 2:08 (specimen) CDT PM CDT Caitlin Owens MD LAB - BLOOD ORDERABLES Performing Organization Address City/[facility]/ZIP Code Phon e Number [address] LABS Creatinine urine calculation only (02/02/2014 2:00 PM CDT) P athologist Signature Creatinine 88 mg/dL [facility] Urine [place] LABS Specimen Anatomical Collection Method Collection Time Receive d Time (Source) Location / / Volume Laterality 02/02/2014 2:00 PM 4 2:12 CDT PM CDT Caitlin Owens MD LAB - URINE ORDERABLES Performing Organization Address City/[facility] Phon e Number [address] LABS (ABNORMAL) Urine culture (02/02/2014 2:00 PM CDT) Component Value Ref Test Analysis Performed At [facility] Range Method Time Signature Specimen Midstream Urine [facility] Description [facility] LABS Special Specimen received [facility] Requests in preservative MICROBIOLOGY Culture Micro <10,000 colonies/mL Gram pos itive cocci No further identification Susceptibility [facility] testing not routinely done MA CROBIOLOGY <10,000 colonies/mL Strain 2 Gram positive cocci No further identification Susceptibility testing not routinely done (A) Micro Report FINAL 02/03/2014 [facility] Status MICROBIOLOGY Specimen Anatomical Collection Method Collection Time Receive d Time (Source) Location / / Volume Laterality Urine specimen URINE SPECIMEN 02/02/2014 2:00 PM 02/02 2:14 (specimen) OBTAINED BY CLEAN CDT PM CDT CATCH PROCEDURE / Unknown Caitlin Owens MD LAB - MICRO GENERAL ORDERABL ES Performing Organization Address City/[facility]/ZIP Code Phon e Number [address] LABS [facility] MICROBIOLOGY (ABNORMAL) Protein random urine (02/02/2014 2:00 PM CDT) [facility] Method Time Signature Protein Random 1.89 g/L [facility] Urine [facility] LABS Protein Total 2.15 (H) 0 - 0.2 [facility] Urine g/gr g/g Cr UNIVERSITY Creatinine CAMPUS LABS Specimen Anatomical Collection Method Collection Time Receive d Time (Source) Location / / Volume Laterality Urine specimen URINE SPECIMEN 02/02/2014 2:00 PM 02/02 2:12 (specimen) OBTAINED BY CLEAN CDT PM CDT CATCH PROCEDURE / Unknown Caitlin Owens MD LAB - URINE ORDERABLES Performing Organization Address City/[facility]/ZIP Code Phon e Number [address] LABS (ABNORMAL) Routine UA with microscopic (02/02/2014 2:00 PM CDT) Patholo gist Method Time Signature Color Urine Light Yellow [facility] LABS Appearance Urine Clear [facility] LABS Glucose Urine 70 (A) NEG mg/dL [facility] LABS Bilirubin Urine Negative NEG [facility] LABS Ketones Urine Negative NEG mg/dL [facility] UNIVERSITY [place] LABS Specific [place] 1.008 1.003 - [facility] Urine 1.035 [facility]AMP[facility] LABS Blood Urine Negative NEG [facility] LABS pH Urine 8.0 (H) 5.0 - 7.0 [facility] pH [facility] LABS Protein Albumin 100 (A) NEG mg/dL [facility] Urine [facility] LABS Urobilinogen Normal 0.0 - 2.0 [facility] mg/dL mg/dL [facility] LAB[facility] Nitrite Urine Negative NEG [facility] Leukocyte Negative NEG [facility] Esterase Urine [facility]AMP[facility] LABS Source Clean catch [facility] urine [facility] LABS WBC Urine 1 0 - 2 [facility] /HPF [facility] LABS RBC Urine 0 0 - 2 [facility] /HPF [facility] LABS Squamous <1 0 - 1 [facility] Epithelial /HPF /HPF [facility]ITY Urine CAMPUS LABS Specimen Anatomical Collection Method Collection Time Receive d Time (Source) Location / / Volume Laterality Urine specimen URINE SPECIMEN 02/02/2014 2:00 PM 02/02 2:12 (specimen) OBTAINED BY CLEAN CDT PM CDT CATCH PROCEDURE / Unknown Caitlin Owens MD LAB - URINE ORDERABLES Performing Organization Address City/[facility]/ZIP Code Phon e Number [facility] [address] [place] [address] [facility] LABS (ABNORMAL) Glucose by meter (02/02/2014 1:59 PM CDT) P athologist Signature Glucose 115 (H) 60 - 99 POINT OF CARE mg/dL TEST, GLUCOSE Specimen Anatomical Collection Method Collection Time Receive d Time (Source) Location / / Volume Laterality 02/02/2014 1:59 PM 4 2:05 CDT PM CDT Migel Merchant MD LAB - BEAKER POCT Performing Organization Address City/[facility]/ZIP Code Phon e Number [facility] POINT OF CARE TEST, GLUCOSE POINT OF CARE TEST, GLUCOSE EKG 12-lead, tracing only (02/02/2014 1:58 PM CDT) [facility] gist Method Time Signature Interpretation ECG Click View RADIOLOGY Image link RESULTS to view waveform and result Specimen (Source) Anatomical Collection Method Collection Time Re ceived Time Location / / Volume Laterality 02/02/2014 1:58 PM CDT Caitlin Owens MD ECG ORDERABLES Performing Organization Address [facility] Phon e Number RADIOLOGY RESULTS documented in this encounter Visit Diagnoses Diagnosis S/P kidney transplant - Primary Kidney replaced by transplant Atrial fibrillation (H) Atrial fibrillation End stage renal failure on dialysis (H) End stage renal disease Immunosuppressed status (H) Unspecified disorder of immune mechanism High risk medication use Encounter for long-term (current) use of other medications DM (diabetes mellitus), type 2 (H) Type II or unspecified type diabetes aung litus without mention of complication, not stated as uncontrolled documented in this encounter Admitting Diagnoses Diagnosis S/P kidney transplant Kidney replaced by transplant documented in this encounter Administered Medications Inactive Administered Medications - up to 3 most recent administrations Medication Order MAR Action Action Date Dose Rate Site 0.9 % sodium chloride IV Rate/Dose Verify 02/04/2014 7:00 AM 1,000 mLs 125 mL/hr solution CDT at 125 mL/hr, Intravenous, CONTINUOUS, Starting on 02/03/14 at 1100, Until 02/04/14 at 1029 New Bag 02/04/2014 2:59 AM CDT 1,000 mLs 125 mL/hr Rate/Dose Verify 02/04/2014 12:05 AM CDT 1,000 mLs 125 mL/hr acetaminophen (TYLENOL) tablet 325-650 m g Given 02/03/2014 12:15 PM CDT 650 mg 325-650 mg, Oral, EVERY 4 HOURS PRN, mild pain, fever, Starting on 02/03/14 at 1011, Maximum acetaminophen dose from all sources = 75 mg/kg/day not to exceed 4 grams/day. acetaminophen (TYLENOL) tablet 650 mg Given 02/03/2014 6:01 PM CDT 650 mg 650 mg, Oral, ONCE, On Tue02/03/14 at 1730, For 1 dose, 30 minutes prior to anti-rejection/antibody therapy. Maximum acetaminophen dose from all sources = 75 mg/kg/day not to exceed 4 grams/day. acetaminophen (TYLENOL) tablet 650 mg Given 02/04/2014 2:38 PM CDT 650 mg 650 mg, Oral, ONCE, On Tue02/04/14 at 1230, For 1 dose, 30 minutes prior to anti-rejection/antibody therapy. Maximum acetaminophen dose from all sources = 75 mg/kg/day not to exceed 4 grams/day. acetaminophen (TYLENOL) tablet 650 mg Given 02/05/2014 9:05 AM CDT 650 mg 650 mg, Oral, ONCE, On Tue02/05/14 at 0930, For 1 dose, 30 minutes prior to anti-rejection/antibody therapy. Maximum acetaminophen dose from all sources = 75 mg/kg/day not to exceed 4 grams/day. acetaminophen (TYLENOL) tablet 650 mg Given 02/06/2014 1:42 PM CDT 650 mg 650 mg, Oral, ONCE, On Tue02/06/14 at 1400, For 1 dose, 30 minutes prior to anti-rejection/antibody therapy. Maximum acetaminophen dose from all sources = 75 mg/kg/day not to exceed 4 grams/day. anti-thymocyte globulin (THYMOGLOBULIN - New Bag 02/03/2014 6:50 P M CDT 100 mg [place]) 100 mg in NaCl 0.9% IVPB 100 mg, Intravenous Central line, ONCE, On Tue02/03/14 at 1800, For 1 dose, For CENTRAL catheter. Infuse first dose over 6 hours, and subsequent doses over 4-6 hours through an in-line 0.22 micron filter. anti-thymocyte globulin (THYMOGLOBULIN - New Bag 02/05/2014 9:39 A M CDT 100 mg [place]) 100 mg in NaCl 0.9% IVPB 100 mg, Intravenous Central line, ONCE, On Tue02/05/14 at 1000, For 1 dose, For CENTRAL catheter. Infuse first dose over 6 hours, and subsequent doses over 4-6 hours through an in-line 0.22 micron filter. anti-thymocyte globulin (THYMOGLOBULIN - New Bag 02/04/2014 3:45 P M CDT 75 mg Rabbit) 75 mg in NaCl 0.9% IVPB 75 mg, Intravenous Central line, ONCE, On Tue02/04/14 at 1300, For 1 dose, For CENTRAL catheter. Infuse first dose over 6 hours, and subsequent doses over 4-6 hours through an in-line 0.22 micron filter. anti-thymocyte globulin (THYMOGLOBULIN - New Bag 02/06/2014 2:40 P M CDT 75 mg Rabbit) 75 mg in NaCl 0.9% IVPB 75 mg, Intravenous Central line, ONCE, On Tue02/06/14 at 1430, For 1 dose, For CENTRAL catheter. Infuse first dose over 6 hours, and subsequent doses over 4-6 hours through an in-line 0.22 micron filter. benzocaine (HURRICAINE/TOPEX) 20 % spray 1-4 Given 9:15 AM CDT 1 spray mL 1-4 mL (1-4 spray), Mouth/Throat, ONCE, On Tue02/06/14 at 0930, For 1 dose, When verbally ordered by the prescriber. [place] throat with 1-4 sprays 5 minutes prior to procedure in the [facility] procedure room , Cardiac Intra-procedure bisacodyl (DULCOLAX) suppository 10 mg Given 02/07/2014 1:45 PM CDT 10 mg 10 mg, Rectal, DAILY PRN, constipation, Starting on Tue02/04/14 at 0000, Start on POD #2. clotrimazole (MYCELEX) lozenge 10 mg Given 02/08/2014 8:09 AM CDT 10 mg 10 mg, Buccal, 3 TIMES DAILY, First dose on Tue02/03/14 at 0800, Slowly dissolve in mouth; do not chew or swallow whole. Given 02/07/2014 8:05 PM CDT 10 mg Given 02/07/2014 1:47 PM CDT 10 mg dextrose 5 % and 0.9% NaCl 1,000 mL New Bag 02/03/2014 7:02 AM CDT 125 mL/hr infusion at 125 mL/hr, Intravenous, CONTINUOUS, Starting on Tue02/02/14 at 2300, Maintenance fluid. Rate/Dose Verify 02/03/2014 1:14 AM CDT 125 mL/hr Rate/Dose Verify 02/03/2014 12:06 AM CDT 125 mL/hr diphenhydrAMINE (BENADRYL) capsule 25 mg Given 02/04/2014 2:57 AM CDT 25 mg 25 mg, Oral, ONCE PRN, sleep, Starting on Tue02/04/14 at 0239, For 1 dose diphenhydrAMINE (BENADRYL) capsule 25-50 mg Given 02/03/2014 6:01 PM CDT 50 mg 25-50 mg, Oral, ONCE, On Tue02/03/14 at 1730, For 1 dose, 30 minutes prior to anti-rejection/antibody therapy. diphenhydrAMINE (BENADRYL) capsule 25-50 mg Given 02/04/2014 2:38 PM CDT 50 mg 25-50 mg, Oral, ONCE, On Tue02/04/14 at 1230, For 1 dose, 30 minutes prior to anti-rejection/antibody therapy. diphenhydrAMINE (BENADRYL) capsule 25-50 mg Given 02/05/2014 9:05 AM CDT 50 mg 25-50 mg, Oral, ONCE, On Tue02/05/14 at 0930, For 1 dose, 30 minutes prior to anti-rejection/antibody therapy. diphenhydrAMINE (BENADRYL) capsule 25-50 mg Given 02/06/2014 1:42 PM CDT 50 mg 25-50 mg, Oral, ONCE, On Tue02/06/14 at 1400, For 1 dose, 30 minutes prior to anti-rejection/antibody therapy. fentaNYL (SUBLIMAZE) injection 25-50 mcg Given 02/02/2014 11:18 PM CDT 25 mcg 25-50 mcg, Intravenous, EVERY 2 MIN PRN, other, acute pain, Starting on 02/02/14 at 2242, MAX cumulative dose = 250 mcg. Use Fentanyl initially, as a short acting agent for acute pain control. If insufficient, or a longer acting agent is needed, begin Morphine or Hydromorphone if ordered., PACU Given 02/02/2014 11:12 PM CDT 25 mcg Given 02/02/2014 11:10 PM CDT 25 mcg furosemide (LASIX) injection 20 mg Given 02/07/2014 12:02 PM CDT 20 mg 20 mg, Intravenous, ONCE, On Rneetta 02/07/14 at 1100, For 1 dose furosemide (LASIX) injection 80 mg Given 02/05/2014 8:00 AM CDT 80 mg 80 mg, Intravenous, 2 TIMES DAILY, First dose on Tue02/03/14 at 0800 Given 02/04/2014 8:09 PM CDT 80 mg Given 02/04/2014 8:10 AM CDT 80 mg heparin drip 25,000 units in New Bag 02/06/2014 3:00 AM CDT 18 Units/hr 0.5 mL/hr D5W 250 mL Intravenous, CONTINUOUS, Starting on Tue02/05/14 at 1115, Starting Drip Rate = 1800 units/hr High Intensity Heparin Protocol. GOAL: HEPARIN Xa (10a) LEVEL = 0.30-0.70 (PTT = 60-101 seconds). Max 1000 units/hr if patient getting TNK and > 70kg. Beginning with the Heparin Xa (10a) Level collected 6 hours after starting Heparin, adjust Heparin according to guidelines. Release Heparin Xa (10a) Level order for blood draw 6 hrs after start of infusion and 6 hrs after any dose change. If Xa (10a) <0.1 see bolus orders and INCREASE by 400 units/hr. If Xa (10a) 0.1 - 0.17 see bolus orders and INCREASE by 300 units/hr. If Xa (10a) 0.18 - 0.29 see bolus orders and INCREASE by 150 units/hr. If Xa (10a) 0.3 - 0.7 then NO CHANGE in rate . If Xa (10a) 0.71 - 1.01 then HOLD 30 min and Reduce by 100 units/hr. If Xa (10a) 1.02 - 2.06 then HOLD 60 min and Reduce by 150 units/hr If Xa (10a) >2.06 then HOLD 60 min and Reduce by 200 units/hr . Rate/Dose Change 02/05/2014 8:26 PM CDT 1,800 Units/hr 18 mL/hr New Bag 02/05/2014 1:13 PM CDT 1,800 Units/hr 18 mL/hr HYDROmorphone (DILAUDID) injection 0.3-0.5 Given 02/02/2014 11:32 PM CDT 0.5 mg mg 0.3-0.5 mg, Intravenous, EVERY 5 MIN PRN, moderate to severe pain, acute pain. May administer if RR is > 10 , Starting on 02/02/14 at 2242, If fentanyl is also ordered, use HYDROmorphone if pain control insufficient with fentanyl or a longer acting agent is needed. Max cumulative dose = 2 mg , PACU Given 02/02/2014 11:20 PM CDT 0.3 mg Given 02/02/2014 11:15 PM CDT 0.4 mg HYDROmorphone (DILAUDID) PHARMACY CUSTOMER CARE SPECIALIST 1 mg/mL Shift Total 02/03/2014 6:24 AM CDT PHARMACY CUSTOMER CARE SPECIALIST dose (mg): 0.1, Max PHARMACY CUSTOMER CARE SPECIALIST dose (mg): 0.2, Lockout Interval (min): 10 minutes, PHARMACY CUSTOMER CARE SPECIALIST Continuous Rate (mg/hr): CONTINUOUS RATE IS NOT RECOMMENDED FOR OPIOID NAIVE PATIENTS, Hour Limit (mg): 1.2, Initial Set-up verified by: Chance Adame RN, First dose on 02/02/14 at 2300, Do NOT give additional opioids orders unless requested by provider., Intravenous, Post-procedure Rate/Dose Verify 02/03/2014 1:41 AM CDT Shift Total 02/02/2014 11:09 PM CDT insulin 1 unit/mL in saline Rate/Dose Change 02/05/2014 2:11 PM 3 U nits/hr 3 mL/hr (novoLIN-Regular) drip - CDT ADULT IV Infusion 0-24 Units/hr (0-24 mL/hr), Intravenous, CONTINUOUS, Starting on 02/02/14 at 2300, Initiate drip with Algorithm #1 (see hyperlink to protocol). Start protocol only if glucose > 150 mg/dL. Maintain glucose level between 100-150 mg/dL. DC when glycemic control achieved and transitioning to SQ insulin, or Insulin therapy no longer required. When blood glucose has stabilized and patient is tolerating PO intake, call provider for transition to SQ insulin. For Infusion Instructions, Click on ADULT DRIP PROTOCOL hyperlink below., Initial Set-up verified by: Chance Adame Rate/Dose Change 02/05/2014 12:58 PM CDT 2 Units/hr 2 mL/hr Rate/Dose Change 02/05/2014 11:25 AM CDT 4 Units/hr 4 mL/hr insulin aspart (NovoLOG) injection (RAPID Given 02/08/2014 2:06 PM CDT 2 Units ACTING) 1-7 Units, Subcutaneous, 3 TIMES DAILY BEFORE MEALS, First dose on Tue02/06/14 at 1200, Correction Scale - MEDIUM INSULIN RESISTANCE DOSING Do Not give Correction Insulin if Pre-Meal BG < 140. For Pre-Meal BG 140 - 189 give 1 unit. For Pre-Meal BG 190 - 239 give 2 units. For Pre-Meal BG 240 - 289 give 3 units. For Pre-Meal BG 290 - 339 give 4 units. For Pre-Meal BG 340- 399 give 5 units. For Pre-Meal BG 400-449 give 6 units For Pre-Meal BG = or > 450 give 7 units. To be given with prandial insulin, and based on pre-meal blood glucose. Notify MD if glucose > or = 350 mg/dL after administration of correction dose. If given at mealtime, must be administered 5 min before meal or immediately after. Given 02/08/2014 9:02 AM CDT 1 Units Given 02/07/2014 7:24 PM CDT 2 Units insulin aspart (NovoLOG) injection (RAPID Given 02/07/2014 1 0:23 PM CDT 1 Units ACTING) 1-5 Units, Subcutaneous, AT BEDTIME, First dose on Tue02/06/14 at 2200, MEDIUM INSULIN RESISTANCE DOSING Do Not give Bedtime Correction Insulin if BG <200. For BG 200 - 249 give 1 units. For BG 250 - 299 give 2 units. For BG 300 - 349 give 3 units. For BG 350 -399 give 4 units. For BG = or > 400 give 5 units. Notify MD if glucose > or = 350 mg/dL after administration of correction dose. If given at mealtime, must be administered 5 min before meal or immediately after. Given 02/06/2014 10:07 PM CDT 1 Units insulin aspart (NovoLOG) injection Given 02/07/2014 8:45 AM CDT 3 Units Subcutaneous, EVERY MORNING BEFORE BREAKFAST, First dose on Tue02/04/14 at 0730, DOSE: 1 units per CARBOHYDRATE UNIT. Only chart total amount of units given. Must be administered 5 minutes before meal or immediately after meal. Do not give if pre-prandial glucose is < 60 mg/dL. If given at mealtime, must be administered 5 min before meal or immediately after. Given 02/05/2014 9:08 AM CDT 3 Units Given 02/04/2014 10:04 AM CDT 5 Units insulin aspart (NovoLOG) injection Given 02/06/2014 1:42 PM CDT 2 Units Subcutaneous, DAILY WITH LUNCH, First dose on Tue02/03/14 at 1200, DOSE: 1 units per CARBOHYDRATE UNIT. Only chart total amount of units given. Must be administered 5 minutes before meal or immediately after meal. Do not give if pre-prandial glucose is < 60 mg/dL. If given at mealtime, must be administered 5 min before meal or immediately after. insulin aspart (NovoLOG) injection Given 02/06/2014 6:40 PM CDT 5 Units Subcutaneous, DAILY WITH SUPPER, First dose on Tue02/03/14 at 1700, DOSE: 1 units per CARBOHYDRATE UNIT. Only chart total amount of units given. Must be administered 5 minutes before meal or immediately after meal. Do not give if pre-prandial glucose is < 60 mg/dL. If given at mealtime, must be administered 5 min before meal or immediately after. Given 02/05/2014 7:58 PM CDT 4 Units Given 02/03/2014 7:59 PM CDT 3 Units insulin aspart (NovoLOG) injection Given 02/08/2014 9:02 AM CDT 6 Units Subcutaneous, 4 TIMES DAILY BEFORE MEALS & NIGHTLY, First dose on Tue02/05/14 at 1130, DOSE: 1 units per 15 grams of carbohydrate. Only chart total amount of units given. Do not give if pre-prandial glucose is < 60 mg/dL. If given at mealtime, must be administered 5 min before meal or immediately after. Given 02/07/2014 7:24 PM CDT 2 Units Given 02/07/2014 1:42 PM CDT 5 Units insulin aspart (NovoLOG) injection Given 02/05/2014 6:05 PM CDT 2 Units 1-7 Units, Subcutaneous, 3 TIMES DAILY BEFORE MEALS, First dose on Tue02/05/14 at 1200, Correction Scale - MEDIUM INSULIN RESISTANCE DOSING Do Not give Correction Insulin if Pre-Meal BG < 140. For Pre-Meal BG 140 - 189 give 1 unit. For Pre-Meal BG 190 - 239 give 2 units. For Pre-Meal BG 240 - 289 give 3 units. For Pre-Meal BG 290 - 339 give 4 units. For Pre-Meal BG 340- 399 give 5 units. For Pre-Meal BG 400-449 give 6 units For Pre-Meal BG = or > 450 give 7 units. To be given with prandial insulin, and based on pre-meal blood glucose. Notify MD if glucose > or = 350 mg/dL after administration of correction dose. If given at mealtime, must be administered 5 min before meal or immediately after. Given 02/05/2014 1:18 PM CDT 1 Units insulin aspart (NovoLOG) injection Given 02/05/2014 10:27 PM CDT 2 Units 1-5 Units, Subcutaneous, AT BEDTIME, First dose on Tue02/05/14 at 2200, MEDIUM INSULIN RESISTANCE DOSING Do Not give Bedtime Correction Insulin if BG <200. For BG 200 - 249 give 1 units. For BG 250 - 299 give 2 units. For BG 300 - 349 give 3 units. For BG 350 -399 give 4 units. For BG = or > 400 give 5 units. Notify MD if glucose > or = 350 mg/dL after administration of correction dose. If given at mealtime, must be administered 5 min before meal or immediately after. insulin glargine (LANTUS) injection 15 Given 02/07/2014 10:23 PM CDT 15 Units Units 15 Units, Subcutaneous, AT BEDTIME, First dose on Tue02/05/14 at 2200 Given 02/06/2014 10:07 PM CDT 15 Units Given 02/05/2014 10:27 PM CDT 15 Units lidocaine (XYLOCAINE) 2 % mouth solution 15 Given 02/06/2014 9:15 AM CDT 15 mLs mL 15 mL, Mouth/Throat, ONCE, On Tue02/06/14 at 0930, For 1 dose, Gargle and swallow. Once 20 minutes prior to the procedure in the [facility] procedure room. , Cardiac Intra-procedure magnesium oxide (MAG-OX) tablet 400 mg Given 02/06/2014 7:52 PM CDT 400 mg 400 mg, Oral, 2 TIMES DAILY, First dose on Tue02/06/14 at 1145, For 2 doses Given 02/06/2014 1:45 PM CDT 400 mg magnesium sulfate 1 g in D5W IVPB New Bag 02/02/2014 11:44 PM CDT 1 g 1 g, Intravenous, ONCE, On Tue02/02/14 at 2345, For 1 dose, PACU melatonin tablet 1 mg Given 02/04/2014 2:57 AM CDT 1 mg 1 mg, Oral, ONCE PRN, sleep, Starting on Tue02/04/14 at 0240, For 1 dose methylPREDNISolone sodium succinate Given 02/03/2014 6:01 PM CDT 125 mg (Solu-MEDROL) injection 125 mg 125 mg, Intravenous, ONCE, On Tue02/03/14 at 1730, For 1 dose, 30 minutes prior to thymoglobulin. . Doses greater than 125 mg need to be in at least 50 mL IVPB methylPREDNISolone sodium succinate Given 02/04/2014 2:37 PM CDT 65 mg (Solu-MEDROL) injection 65 mg 65 mg, Intravenous, ONCE, On Tue02/04/14 at 1230, For 1 dose, 30 minutes prior to thymoglobulin. . Doses >125mg need to be in at least 50 mL IVPB methylPREDNISolone sodium succinate Given 02/05/2014 9:06 AM CDT 65 mg (Solu-MEDROL) injection 65 mg 65 mg, Intravenous, ONCE, On Tue02/05/14 at 0930, For 1 dose, 30 minutes prior to thymoglobulin. . Doses greater than 125 mg need to be in at least 50 mL IVPB metoprolol (LOPRESSOR) 1 MG/ML injection Starting on Tue02/04/14 at 0818, For 1 dose, JAKE DE SANTIAGO: avila override metoprolol (LOPRESSOR) injection 5 mg Given 02/04/2014 9:20 AM CDT 5 mg 5 mg, Intravenous, EVERY 5 MIN, First dose on Tue02/04/14 at 0815, For 3 doses, Hold for systolic BP less than 90 or HR less than 60 Given 02/04/2014 8:41 AM CDT 5 mg Given 02/04/2014 8:19 AM CDT 5 mg metoprolol (LOPRESSOR) tablet 12.5 mg Given 02/04/2014 8:10 AM CDT 12.5 mg 12.5 mg, Oral, 2 TIMES DAILY, First dose on Tue02/03/14 at 2000, For Adults, Hold if HR < 60 or SBP <110. Given 02/03/2014 8:00 PM CDT 12.5 mg metoprolol (LOPRESSOR) tablet 25 mg Given 02/08/2014 8:09 AM CDT 25 mg 25 mg, Oral, 2 TIMES DAILY, First dose (after last modification) on Tue02/04/14 at 2000, For Adults, Hold if HR < 60 or SBP <100. Given 02/07/2014 8:05 PM CDT 25 mg Given 02/07/2014 8:36 AM CDT 25 mg mycophenolate (CELLCEPT-BRAND NAME) capsule Given 01/21 8:08 AM CDT 1,000 mg 1,000 mg 1,000 mg, Oral, 2 TIMES DAILY., First dose on 02/03/14 at 0800, Check if BLOOD LEVEL is needed BEFORE administering dose. This order is specifically written for CELLCEPT (BRAND NAME) capsules. Given 02/07/2014 6:20 PM CDT 1,000 mg Given 02/07/2014 8:38 AM CDT 1,000 mg ondansetron (ZOFRAN) injection 4 mg Given 02/08/2014 12:12 PM CDT 4 mg 4 mg, Intravenous, EVERY 6 HOURS PRN, nausea, vomiting, Administer over 2-5 Minutes, Starting on 02/03/14 at 0055, Try prochlorperazine (COMPAZINE) first and if nausea is not resolved in 15-30 minutes, then administer ondansetron (ZOFRAN). Given 02/08/2014 4:46 AM CDT 4 mg opium-belladonna (B&O SUPPRETTES) 30-16.2 MG Given 11:17 PM CDT 15 mg suppository 15 mg 15 mg, Rectal, ONCE, On 02/02/14 at 2315, For 1 dose, PACU/Phase II oxyCODONE (ROXICODONE) immediate release Given 02/03/2014 12:26 PM CDT 5 mg tablet 5 mg 5 mg, Oral, EVERY 4 HOURS PRN, moderate to severe pain, Starting on Tue02/03/14 at 0942 oxyCODONE (ROXICODONE) immediate release tablet Given 02/06/2014 7:55 PM CDT 5 mg 5 mg 5 mg, Oral, EVERY 4 HOURS PRN, moderate to severe pain, Starting on Tue02/05/14 at 0750 Given 02/06/2014 1:45 PM CDT 5 mg Given 02/06/2014 12:15 AM CDT 5 mg oxyCODONE (ROXICODONE) immediate release Given 02/05/2014 3:11 A M CDT 10 mg tablet 5-10 mg 5-10 mg, Oral, EVERY 4 HOURS PRN, moderate to severe pain, Starting on Tue02/03/14 at 1434 Given 02/04/2014 8:18 AM CDT 10 mg Given 02/04/2014 2:07 AM CDT 10 mg pantoprazole (PROTONIX) EC tablet 40 mg Given 02/08/2014 8:09 AM CDT 40 mg 40 mg, Oral, DAILY, First dose on Tue02/03/14 at 0800, DO NOT CRUSH. Given 02/07/2014 8:35 AM CDT 40 mg Given 02/06/2014 12:02 PM CDT 40 mg perflutren diluted 1mL to 2mL with saline Given 02/04/2014 4:30 PM CDT 3 mLs (OPTISON) diluted injection 3 mL 3 mL, Intravenous, ONCE, On Tue02/04/14 at 1630, For 1 dose polyethylene glycol (MIRALAX/GLYCOLAX) packet Given 02/08/20 8:37 AM CDT 17 g 17 g 17 g, Oral, DAILY, First dose on Tue02/06/14 at 0800, 1 Packet = 17 grams. Mixed prescribed dose in 8 ounces of water. Given 02/06/2014 12:04 PM CDT 17 g predniSONE (DELTASONE) tablet 30 mg Given 02/07/2014 8:36 AM CDT 30 mg 30 mg, Oral, DAILY, First dose on Tue02/06/14 at 1400, For 2 days Given 02/06/2014 1:42 PM CDT 30 mg senna-docusate (SENOKOT-S;PERICOLACE) Given 02/07/2014 8:36 AM C DT 2 tablets 8.6-50 MG per tablet 2 tablet 2 tablet, Oral, 2 TIMES DAILY, First dose (after last modification) on Tue02/03/14 at 0945, Start on POD #2, Hold if PO intake < 300 mL's/Day. Given 02/06/2014 7:52 PM CDT 2 tablets Given 02/06/2014 12:03 PM CDT 2 tablets sertraline (ZOLOFT) tablet 100 mg Given 02/08/2014 8:09 AM CDT 100 mg 100 mg, Oral, DAILY, First dose on Tue02/03/14 at 1515 Given 02/07/2014 8:36 AM CDT 100 mg Given 02/06/2014 12:02 PM CDT 100 mg sodium chloride (PF) 0.9% PF flush 10 mL Given 02/08/2014 1:30 AM CDT 10 mLs 10 mL, Intravenous, EVERY 8 HOURS, First dose on Tue02/03/14 at 0100, And Q1H PRN, 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 Given 02/07/2014 6:20 PM CDT 10 mLs Given 02/07/2014 8:38 AM CDT 10 mLs sodium chloride (PF) 0.9% PF flush 10-20 mL Given 02/08/2014 6:43 AM CDT 20 mLs 10-20 mL, Intravenous, EVERY 1 HOUR PRN, line flush, post meds or blood draw, Starting on Tue02/03/14 at 0055, to flush CVC - Open Ended (Tunneled and Non-Tunneled). 10 mL post IV meds; 20 mL post blood draw. Given 02/07/2014 4:20 AM CDT 20 mLs Given 02/06/2014 1:00 AM CDT 20 mLs sodium chloride 0.9 % BOLUS 500 mL New Bag 02/03/2014 3:36 AM CDT 500 mLs 250 mL/hr Intravenous, 500 mL, ONCE, at 250 mL/hr, Administer over 2 Hours, On Tue02/03/14 at 0330, For 1 dose sulfamethoxazole-trimethoprim Given 02/04/2014 8:10 AM CDT 1 tab let (BACTRIM,SEPTRA) 400-80 MG per tablet. DOSE = 1 tablet Routine, 1 tablet, Oral, DAILY, First dose on Tue02/03/14 at 0800, Indications: PCP prophylaxis Given 02/03/2014 8:37 AM CDT 1 tablet sulfamethoxazole-trimethoprim Given 02/06/2014 12:03 PM CDT 1 ta blet (BACTRIM,SEPTRA) 400-80 MG per tablet. DOSE = 1 tablet Routine, 1 tablet, Oral, USER SPECIFIED (Once per day on Tue), First dose (after last modification) on Tue02/06/14 at 0800, Indications: PCP prophylaxis sulfamethoxazole-trimethoprim Given 02/08/2014 8:09 AM CDT 1 tab let (BACTRIM,SEPTRA) 400-80 MG per tablet. DOSE = 1 tablet Routine, 1 tablet, Oral, DAILY, First dose (after last modification) on Tue02/07/14 at 1200, Indications: PCP prophylaxis Given 02/07/2014 12:26 PM CDT 1 tablet tacrolimus (Prograf BRAND) capsule 1.5 m g Given 02/08/2014 8:09 AM CDT 1.5 mg 1.5 mg, Oral, 2 TIMES DAILY., First dose on Tue02/06/14 at 1930, Check if BLOOD LEVEL is needed BEFORE administering dose. This order is specifically written for PROGRAF (BRAND NAME) capsules. Given 02/07/2014 6:20 PM CDT 1.5 mg Given 02/07/2014 8:38 AM CDT 1.5 mg tacrolimus (PROGRAF BRAND) capsule 2 mg Given 02/06/2014 5:58 PM CDT 2 mg 2 mg, Oral, 2 TIMES DAILY., First dose on Tue02/04/14 at 1000, Check if BLOOD LEVEL is needed BEFORE administering dose. This order is specifically written for PROGRAF (BRAND NAME) capsules. Given 02/06/2014 12:03 PM CDT 2 mg Given 02/05/2014 5:02 PM CDT 2 mg valGANciclovir (VALCYTE) tablet 450 mg Given 02/04/2014 8:10 AM CDT 450 mg Routine, 450 mg, Oral, TWICE WEEKLY (Once per day on Tue), First dose on Tue02/04/14 at 0900, With Normal WBC Count. Pharmacy to adjust per Renal Dosing Protocol., Indications: Cytomegalovirus Disease Pharmacoprophylaxis valGANciclovir (VALCYTE) tablet 450 mg Given 02/06/2014 12:03 PM CDT 450 mg Routine, 450 mg, Oral, EVERY OTHER DAY, First dose (after last modification) on Tue02/06/14 at 0900, With Normal WBC Count. Pharmacy to adjust per Renal Dosing Protocol., Indications: Cytomegalovirus Disease Pharmacoprophylaxis valGANciclovir (VALCYTE) tablet 450 mg Given 02/08/2014 8:12 AM CDT 450 mg Routine, 450 mg, Oral, DAILY, First dose (after last modification) on Tue02/07/14 at 1200, With Normal WBC Count. Pharmacy to adjust per Renal Dosing Protocol., Indications: Cytomegalovirus Disease Pharmacoprophylaxis Given 02/07/2014 12:27 PM CDT 450 mg warfarin (COUMADIN) tablet 5 mg Given 02/05/2014 5:02 PM CDT 5 mg 5 mg, Oral, ONCE AT 6PM, On Tu02/05/14 at 1800, For 1 dose warfarin (COUMADIN) tablet 5 mg Given 02/07/2014 6:20 PM CDT 5 mg 5 mg, Oral, ONCE AT 6PM, On Renetta 02/07/14 at 1800, For 1 dose documented in this encounter Active and Recently Administered Medications Times are shown in CDT. Scheduled Medication Order 02/06/2014 02/07/2014 02/08/2014 acetaminophen (TYLENOL) tablet 650 mg (COMPLETED) 1342 (Given - Provider: Ganesh Covarrubias RN) 650 mg, Oral, ONCE, 02/06/14 at 1400, For 1 dose, 30 minutes prior to anti- rejection/antibody therapy. Maximum acetaminophen dose from all sources = 75 mg/kg/day not to exceed 4 grams/day. anti-thymocyte globulin (THYMOGLOBULIN - Rabbit) 75 mg in NaCl 0.9% IVPB (COMPLETED) 1440 (New Bag - Provider: Ganesh Covarrubias RN) 75 mg, Intravenous Central line, ONCE, W ed 02/06/14 at 1430, For 1 dose, For CENTRAL catheter. Infuse first dose over 6 hours, and subsequent doses over 4-6 hours through an in-line 0.22 micron filter. benzocaine (HURRICAINE/TOPEX) 20 % spray 1-4 mL (COMPL ETED) 0915 (Given - Provider: Viry Kessler RN) Mouth/Throat, ONCE, 02/06/14 at 0930, For 1 dose, When verbally ordered by the prescriber. [place] throat with 1-4 sprays 5 minutes prior to procedure in the [facility] procedure room , Cardiac Intra-procedure clotrimazole (MYCELEX) lozenge 10 mg 1205 (Given - Pro vider: Ganesh Covarrubias RN)1335 (Given - Provider: Ganesh Covarrubias RN)1952 (Given - Provider: Annmarie Colby RN) 0837 (Given - Provider: Lashaun Braswell RN)1347 (Given - Provider: Lashaun Braswell RN)2004 (Given - Provider: Annmarie Colby RN) 0809 (Given - Provider: Amanda Hernandez, BOGDAN)1400 (Canceled Entry - Provider: Orders Generic Provider - Comment: Automatically canceled at discontinue of medication order) 10 mg, Buccal, 3 TIMES DAILY, First dose on Tue02/03/14 at 0800, Slowly dissolve in mouth; do not chew or swallow whole. diphenhydrAMINE (BENADRYL) capsule 25-50 mg (COMPLETED ) 1342 (Given - Provider: Ganesh Covarrubias RN) 25-50 mg, Oral, ONCE, Tue02/06/14 at 140 0, For 1 dose, 30 minutes prior to anti- rejection/antibody therapy. furosemide (LASIX) injection 20 mg (COMPLETED) 1202 (Given - Provider: Lashaun Braswell RN) 20 mg, Intravenous, ONCE, [facility] 02/07/14 at 1100, For 1 dose insulin aspart (NovoLOG) injection (RAPID ACTING) (CAN CELED) 1206 (Given - Provider: Ganesh Covarrubias RN)1840 (Given - Provider: Lashaun Braswell RN) 0844 (Given - Provider: Lashaun Braswell RN)1343 (Given - Provider: Lashaun Braswell, RN)1924 (Given - Provider: Annmarie Colby RN) 0902 (Given - Provider: Amanda Hernandez, BOGDAN)1406 (Given - Provider: Amanda Hernandez, BOGDAN - Comment: BG 193) 1-7 Units, Subcutaneous, 3 TIMES DAILY B EFORE MEALS, First dose on Tue02/06/14 at 1200, Correction Scale - MEDIUM INSULIN RESISTANCE DOSING Do Not give Correction Insulin if Pre-Meal BG < 140. For Pr e-Meal BG 140 - 189 give 1 unit. For Pre -Meal BG 190 - 239 give 2 units. For Pre-Meal BG 240 - 289 give 3 units. For Pre-Meal BG 290 - 339 give 4 units. For Pre-Meal BG 340- 399 give 5 units. For Pre-Me al BG 400-449 give 6 units For Pre-Meal BG = or > 450 give 7 units. To be given with prandial insulin, and based on pre-meal blood glucose. Notify MD if glucose > or = 350 mg/dL after administrati on of correction dose. If given at mealt dequan, must be administered 5 min before meal or immediately after. insulin aspart (NovoLOG) injection (RAPID ACTING) (CAN CELED) 2206 (Given - Provider: Annmarie Colby RN) 2222 (Given - Provider: Annmarie Colby RN) 1-5 Units, Subcutaneous, AT BEDTIME, Fir st dose on Tue02/06/14 at 2200, MEDIUM INSULIN RESISTANCE DOSING Do Not give Bedtime Correction Insulin if BG <200. For BG 200 - 249 give 1 units. For BG 250 - 299 give 2 units. For BG 300 - 349 give 3 units. For BG 350 -399 give 4 units. For BG = or > 400 give 5 units. Notify MD if glucose > or = 350 mg/dL after administration of correction dose. If gi isael at mealtime, must be administered 5 min before meal or immed iately after. insulin aspart (NovoLOG) injection (CANCELED) 0818 (No t Given - Provider: Ganesh Covarrubias RN - Reason: NPO) 0845 (Given - Provider: Lashaun Braswell RN - Comment: 45 carb units) Subcutaneous, EVERY MORNING BEFORE BREAK FAST, First dose on Tue02/04/14 at 0730, DOSE: 1 units per CARBOHYDRATE UNIT. Only chart total amount of units given. Must be administered 5 minutes before meal o r immediately after meal. Do not give if pre-prandial glucose is < 60 mg/dL. If given at mealtime, must be administered 5 min before meal or immediately after. insulin aspart (NovoLOG) injection (CANCELED) 1342 (Gi isael - Provider: Ganesh Covarurbias RN) Subcutaneous, DAILY WITH LUNCH, First do se on Tue02/03/14 at 1200, DOSE: 1 units per CARBOHYDRATE UNIT. Only chart total amount of units given. Must be administered 5 minutes before meal or immediately after meal. Do not give if pre-prandial glucose is < 60 mg/dL. If given at mealtime, must be administered 5 min before meal or immediately after. insulin aspart (NovoLOG) injection (CANCELED) 1840 (Gi isael - Provider: Lashaun Braswell RN) Subcutaneous, DAILY WITH SUPPER, First d ose on Tue02/03/14 at 1700, DOSE: 1 units per CARBOHYDRATE UNIT. Only chart total amount of units given. Must be administered 5 minutes before meal or immediately after meal. Do not give if pre-prandial glucose is < 60 mg/dL. If given at mealtime, must be administered 5 min before meal or immediately after. insulin aspart (NovoLOG) injection (CANCELED) 0730 (No t Given - Provider: Ganesh Covarrubias RN - Reason: NPO)1335 (Not Given - Provider: Ganesh Covarrubias RN - Reason: Other)1738 (Not Given - Provider: Lashaun Braswell RN - Reason: Other - Comment: Duplicate order) 0839 (Not Given - Provider: Lashaun pino RN - Reason: Other - Comment: duplicate order)1342 (Given - Provider: Lashaun Braswell RN)1924 (Given - Provider: Annmarie Colby RN)2224 (Not Given - Provider: Annmarie Colby RN - Reason: Other) 0902 (Given - Provider: Amanda low RN)1130 (Canceled Entry - Provider: Orders Generic Provider - Comment: Automatically canceled at discontinue of medication order) Subcutaneous, 4 TIMES DAILY BEFORE MEALS & NIGHTLY, First dose on Tue02/05/14 at 1130, DOSE: 1 units per 15 grams of carbohydrate. Only chart total amount of units given. Do not give if pre-prandial 2210 (Not Given - Provider: Annmarie Colby RN - Reason: Other - Comment: pt. not eating at HS) 1630 (Canceled Entry - Provider: Orders Generic Provider - Comment: Automatically canceled at discontinue of medication order) glucose is < 60 mg/dL. If given at meal time, must be administered 5 min before meal or immediately after. insulin glargine (LANTUS) injection 15 Units (CANCELED ) 2206 (Given - Provider: Annmarie Colby RN) 222 (Given - Provider: Annmarie Colby RN) 15 Units, Subcutaneous, AT BEDTIME, First dose on Tue02/05/14 at 2200 lidocaine (XYLOCAINE) 2 % mouth solution 15 mL (COMPLE ALOK) 0915 (Given - Provider: Viry Kessler RN) 15 mL, Mouth/Throat, ONCE, Tue02/06/14 a t 0930, For 1 dose, Gargle and swallow. Once 20 minutes prior to the procedure in the [facility] procedure room. , Cardiac Intra-procedure magnesium oxide (MAG-OX) tablet 400 mg (COMPLETED) 134 5 (Given - Provider: Ganesh Covarrubias RN)1951 (Given - Provider: Annmarie Colby, BOGDAN) 400 mg, Oral, 2 TIMES DAILY, First dose on Tue02/06/14 at 1145, For 2 doses metoprolol (LOPRESSOR) tablet 25 mg 1205 (Given - Prov ider: Ganesh Covarrubias RN)1951 (Given - Provider: Annmarie Colby, BOGDAN) 0836 (Given - Provider: Lashaun Braswell, BOGDAN)2004 (Given - Provider: Annmarie Colby RN) 0809 (Given - Provider: Amanda Hernandez, BOGDAN) 25 mg, Oral, 2 TIMES DAILY, First dose o n 02/04/14 at 2000, For Adults, Hold if HR < 60 or SBP <100. mycophenolate (CELLCEPT-BRAND NAME) capsule 1,000 mg 1 204 (Given - Provider: Ganesh Covarrubias RN)1758 (Given - Provider: Lashaun Braswell, BOGDAN) 0838 (Given - Provider: Lashaun Braswell, RN)1820 (Given - Provider: Lashaun Braswell, BOGDAN) 0808 (Given - Provider: Amanda Hernandez, BOGDAN) 1,000 mg, Oral, 2 TIMES DAILY., First do se on 02/03/14 at 0800, Check if BLOOD LEVEL is needed BEFORE administering dose. This order is specifically written for CELLCEPT (BRAND NAME) capsules. pantoprazole (PROTONIX) EC tablet 40 mg 1202 (Given - Provid er: Ganesh Covarrubias RN) 0835 (Given - Provider: Lashaun Braswell, BOGDAN) 0809 (Given - Provider: Amanda Hernandez, BOGDAN) 40 mg, Oral, DAILY, First dose on 02/03/14 at 0800, DO NOT CR [facility]. polyethylene glycol (MIRALAX/GLYCOLAX) packet 17 g (CA NCELED) 1204 (Given - Provider: Ganesh Covarrubias RN) 0837 (Given - Provider: Lashaun Braswell RN) 0810 (Not Given - Provider: Amanda Hernandez RN - Reason: Patient/family refused) 17 g, Oral, DAILY, First dose on 01/20 at 0800, 1 Packet = 17 grams. Mixed prescribed dose in 8 ounces of water. predniSONE (DELTASONE) tablet 30 mg (COMPLETED) 1342 ( Given - Provider: Ganesh Covarrubias RN) 0836 (Given - Provider: Lashaun Braswell, RN) 30 mg, Oral, DAILY, First dose on Tue02/06/14 at 1400, For 2 day s senna-docusate (SENOKOT-S;PERICOLACE) 8.6-50 MG per ta blet 2 tablet 1203 (Given - Provider: Ganesh Covarrubias RN)1952 (Given - Provider: Annmarie Colby, BOGDAN) 0836 (Given - Provider: Lashaun Braswell RN)1999 (Not Given - Provider: Annmarie Colby RN - Reason: Patient/family refused - Comment: pt. had 2 large BMs today) 0810 (Not Given - Provider: Amanda correa RN - Reason: Patient/family refused) 2 tablet, Oral, 2 TIMES DAILY, First dos e on 02/03/14 at 0945, Start on POD #2, Hold if PO intake < 300 mL's/Day. sertraline (ZOLOFT) tablet 100 mg (CANCELED) 1202 (Giv en - Provider: Ganesh Covarrubias RN) 0836 (Given - Provider: Lashaun Braswell, BOGDAN) 0809 (Give n - Provider: Amanda Hernandez RN) 100 mg, Oral, DAILY, First dose on 02/03/14 at 1515 sodium chloride (PF) 0.9% PF flush 10 mL (CANCELED) 01 00 (Not Given - Provider: Farideh Hodgson RN - Reason: IV Infusing)1207 (Given - Provider: Ganesh Covarrubias RN)1622 (Given - Provider: Lashaun Braswell, BOGDAN)1656 (Given - Provider: Odalis Seaman)2209 (Given - Provider: Annmarie Colby, BOGDAN) 0803 (Canceled Entry - Provider: Lashaun Braswell, BOGDAN - Comment: unknown if given by previous nurse.)0838 (Given - Provider: Lashaun Braswell RN)1820 (Given - Provider: Lashaun Braswell RN) 0130 (Given - Provider: Annmarie Colby RN)0810 (Not Given - Provider: Amanda Hernandez RN - Reason: Other) 10 mL, Intravenous, EVERY 8 HOURS, First dose on Tue02/03/14 at 0100, And Q1H PRN, 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 sulfamethoxazole-trimethoprim (BACTRIM,S EPTRA) 400-80 MG per tablet. DOSE = 1 tablet (CANCELED) 1203 (Given - Provider: Ganesh Covarrubias RN) 1 tablet, Oral, USER SPECIFIED (Once per day on Tue), First dose on Tue02/06/14 at 0800, Indications: PCP prophylaxis sulfamethoxazole-trimethoprim (BACTRIM,S EPTRA) 400-80 MG per tablet. DOSE = 1 tablet 1226 (Given - Provider: Lashaun Braswell RN) 0809 (Given - Provider: Amadna Hernandez RN) 1 tablet, Oral, DAILY, First dose on Tue02/07/14 at 1200, Indications: PCP prophylaxis tacrolimus (Prograf BRAND) capsule 1.5 mg 2028 (Not Gi isael - Provider: Lynne Gatica [facility] - Reason: Other - Comment: Dose already received, see previous order) 0838 (Given - Provider: Lashaun Braswell RN)1820 (Given - Provider: Lashaun Braswell RN) 0809 (Given - Provider: Amanda low RN) 1.5 mg, Oral, 2 TIMES DAILY., First dose on Tue02/06/14 at 1930, Check if BLOOD LEVEL is needed BEFORE administering dose. This order is specifically written for PROGRAF (BRAND NAME) capsules. tacrolimus (PROGRAF BRAND) capsule 2 mg (CANCELED) 120 3 (Given - Provider: Ganesh Covarrubias RN)1758 (Given - Provider: Lashaun Braswell RN) 2 mg, Oral, 2 TIMES DAILY., First dose o n Tue02/04/14 at 1000, Check if BLOOD LEVEL is needed BEFORE administering dose. This order is specifically written for PROGRAF (BRAND NAME) capsules. valGANciclovir (VALCYTE) tablet 450 mg (CANCELED) 1203 (Given - Provider: Ganesh Covarrubias RN) 450 mg, Oral, EVERY OTHER DAY, First dos e on Tue02/06/14 at 0900, With Normal WBC Count. Pharmacy to adjust per Renal Dosing Protocol., Indications: Cytomegalovirus Disease Prophylaxis valGANciclovir (VALCYTE) tablet 450 mg 1 227 (Given - Provider: Lashaun Braswell, RN) 0812 (Given - Provider: Amanda low RN) 450 mg, Oral, DAILY, First dose on Tue at 1200, With Normal WBC Count. Pharmacy to adjust per Renal Dosing Protocol., Indications: Cytomegalovirus Disease Prophylaxis warfarin (COUMADIN) tablet 5 mg (COMPLETED) 1820 (Given - Provider: Lashaun Braswell, RN) 5 mg, Oral, ONCE AT 6PM, Tue02/07/14 at 1800, For 1 dose warfarin (COUMADIN) tablet 5 mg 5 mg, Oral, ONCE AT 6PM, Tue02/08/14 at 1800, For 1 dose Continuous Medication Order 02/06/2014 02/07/2014 02/08/2014 heparin drip 25,000 units in D5W 250 mL (CANCELED) 030 0 (New Bag - Provider: Farideh Hodgson, RN)0610 (Stopped - Provider: Farideh Hodgson, BOGDAN) Intravenous, CONTINUOUS, Starting Tue at 1115, Starting Drip Rate = 1800 units/hr High Intensity Heparin Protocol. GOAL: HEPARIN Xa (10a) LEVEL = 0.30- 0.70 (PTT = 60-101 seconds). Max 1000 units /hr if patient getting TNK and > 70kg. B eginning with the Heparin Xa (10a) Level collected 6 hours after starting Heparin, adjust Heparin according to guidelines. Release Heparin Xa (10a) Level order for blood draw 6 hrs after start of inf usion and 6 hrs after any dose change. If Xa (10a) <0.1 see bolus orders and INCREASE by 400 units/hr. If Xa (10a) 0.1 - 0.17 see bolus orders and INCREASE by 300 units/hr. If Xa (10a) 0.18 - 0.29 se e bolus orders and INCREASE by 150 units/hr. If Xa (10a) 0.3 - 0.7 then NO CHANGE in rate . If Xa (10a) 0.71 - 1.01 then HOLD 30 min and Reduce by 100 units/hr. I f Xa (10a) 1.02 - 2.06 then HOLD 60 min and Reduce by 150 units/hr If Xa (10a) >2.06 then HOLD 60 min and Reduce by 200 units/hr . PRN Medication Order 02/06/2014 02/07/2014 02/08/2014 bisacodyl (DULCOLAX) suppository 10 mg (CANCELED) 1345 (Given - Provider: Lashaun Braswell, RN) 10 mg, Rectal, DAILY PRN, constipation, Starting 02/04/14 at 0000, Start on POD #2. ondansetron (ZOFRAN) injection 4 mg (CANCELED) 0446 (Given - Provider: Annmarie Colby, RN)1212 (Given - Provider: Amanda Hernandez, BOGDAN) 4 mg, Intravenous, EVERY 6 HOURS PRN, na usea, vomiting, for 2 Minutes, Starting 02/03/14 at 0055, Try prochlorperazine (COMPAZINE) first and if nausea is not resolved in 15-30 minutes, then administer ondansetron (ZOFRAN). oxyCODONE (ROXICODONE) immediate release tablet 5 mg 0 015 (Given - Provider: Farideh Hodgson, BOGDAN)1345 (Given - Provider: Ganesh Covarrubias, BOGDAN)1955 (Given - Provider: Annmarie Colby, BOGDAN) 5 mg, Oral, EVERY 4 HOURS PRN, moderate to severe pain, Starting Tu02/05/14 at 0750 sodium chloride (PF) 0.9% PF flush 10-20 mL (CANCELED) 0100 (Given - Provider: Palleap (Wollan) Hour) 0420 (Given - Provider: Angie Velazco MLT) 0643 (Given - Provider: Dee Fields) 10-20 mL, Intravenous, EVERY 1 HOUR PRN, line flush, post meds or blood draw, Starting 02/03/14 at 0055, to flush CVC - Open Ended (Tunneled and Non- Tunneled). 10 mL post IV meds; 20 mL post blood draw. documented in this encounter Care Teams Environmental Programs Specialist Relationship Specialty Start Date End Date Momo Forbes PCP - General Family Practice 01/02/14 [facility] [address] [place] [address] Ingrid Santana, RN Registered Nurse Transplant 02/10/12 10/01/15 documented as of this encounter
--- OUTSIDE RECORDS SUMMARY | 2022-03-30 18:51 | XMS_ITS | Encounter Summary ---
:1950 Author Organization [place] Address [address] [place] [address] Care Team Providers Name Role Phone Ingrid Santana RN Unavailable Momo Forbes Primary Care Provider Encounter Details Date Type Department Care Team Description 02/02/2014 Results Only LABORATORY RESULTS Migel Merchant MD [address] [place] [address] [address] [place] [address] (Wo rk) Social History Tobacco [...] Name Priority Date/Time Associated Diagnosis Comme nts HLA LUKASZ CLASS I Routine 02/02/2014 6:51 PM Result s for this SINGLE ANTIGEN CDT procedure are in the results section. documented in this encounter Results HLA Lukasz Class I Single Antigen (02/02/2014 6:51 PM CDT) [facility] Method Time Signature SA1 Test SA HI HISTOTRAC Method SA1 Cell Class I HISTOTRAC SA1 PRA %POS 1 HISTOTRAC SA1 Hi Risk None HISTOTRAC Lukasz SA1 Mod Risk A:43 HISTOTRAC Lukasz SA1 Comments Test performed by aden soto. Serum heat inactivated. High-risk, HISTOTRAC mfi >3,000. Mod-risk, mfi 500-3,000. Predictive PRA derived from local donor pool. Specimen Anatomical Collection Method Collection Time Receive d Time (Source) Location / / Volume Laterality 02/02/2014 6:51 PM 4 6:58 CDT PM CDT Migel Merchant MD LAB - IMMUNOLOGY ORDERABLES Performing Organization Address City/State/ZIP Code Phon e Number [facility] Immunology/Histocompatabil [place], [place] [address] [facility] [address], Room 3-580 HISTOTRAC documented in this encounter Visit Diagnoses Not on filedocumented in this encounter Care Teams Manager Advanced Relationship Specialty Start Date End Date Momo Forbes PCP - General Family Practice 01/02/14 [facility] [address] [place] [address] Ingrid Santana, RN Registered Nurse Transplant 02/10/12 10/01/15 documented as of this encounter
--- OUTSIDE RECORDS SUMMARY | 2022-03-30 18:51 | XMS_ITS | Encounter Summary ---
:1950 Author Organization [place] Address [address] [facility] [place] [address] Care Team Providers Name Role Phone Ingrid Santana RN Unavailable Momo Forbes Primary Care Provider Encounter Details Date Type Department Care Team Description 02/02/2014 Results Only LABORATORY RESULTS Migel Merchant MD [address] [place] [address] [address] [place] [address] (Wo rk) Social History Tobacco [...] Associated Diagnosis Comme nts HLA LUKASZ CLASS II Routine 02/02/2014 6:51 PM Resul ts for this SINGLE ANTIGEN CDT procedure are in the results section. documented in this encounter Results HLA Lukasz Class II Single Antigen (02/02/2014 6:51 PM CDT) [facility] Method Time Signature SA2 Test SA HI [...] Phon e Number [facility] Immunology/Histocompatabil [place], [place] [address] ity [facility] [address], Room 3-580 HISTOTRAC documented in this encounter Visit Diagnoses Not on filedocumented in this encounter Care Teams Boat Oar Maker Relationship Specialty Start Date End Date Momo Forbes PCP - General Family Practice 01/02/14 [facility] [address] [place] [address] Ingrid Santana, RN Registered Nurse Transplant 02/10/12 10/01/15 documented as of this encounter
--- OUTSIDE RECORDS SUMMARY | 2022-03-30 18:51 | XMS_ITS | Encounter Summary ---
:1950 Author Organization [place] Address [facility] [place] [address] Care Team Providers Name Role Phone Ingrid Santana RN Unavailable Momo Forbes Primary Care Provider Reason for Visit Reason Comments Transplant Encounter Details Date Type Department Care Team Description 02/02/2014 Orders Only Transplant Surgery [place], End stage renal failure Clinic BOGDAN Mae on dialysis (H) 2nd Floor, Clinic 2A (Primary Dx) [address] [phone] Social History Tobacco Use Types Packs/Day Years [...] documented as of this encounter Miscellaneous Notes Addendum Note - Caitlin Owens MD - 02/02/2014 4:42 PM CDT Addended by: CAITLIN OWENS on: 02/02/2014 04:42 PM Modules accepted: Orders documented in this encounter Plan of Treatment Not on filedocumented as of this encounter Visit Diagnoses Diagnosis End stage renal failure on dialysis (H) - Primary End stage renal disease documented in this encounter Care Teams [employer] Silver[employer] Salesperson Relationship Specialty Start Date End Date Momo Forbes PCP - General Family Practice 01/02/14 [facility] [address] [place] [address] Ingrid Santana, RN Registered Nurse Transplant 02/10/12 10/01/15 documented as of this encounter
--- OUTSIDE RECORDS SUMMARY | 2022-03-30 18:51 | XMS_ITS | Encounter Summary ---
:1950 Author Organization [place] Address [address] [place] [address]. [place] [address] Care Team Providers Name Role Phone Ingrid Santana RN Unavailable Momo Forbes Primary Care Provider Encounter Details Date Type Department Care Team Description 02/02/2014 Abstract The Transplant [facility] 2nd Floor, Clinic [address] [phone] Social History Tobacco Use [...] in this encounter Care Teams Varnishing Unit Operator Relationship Specialty Start Date End Date Momo Forbes PCP - General Family Practice 01/02/14 [facility] [address] [place] [address] Ingrid Santana RN Registered Nurse Transplant 02/10/12 10/01/15 documented as of this encounter
--- OUTSIDE RECORDS SUMMARY | 2022-03-30 18:51 | XMS_ITS | Encounter Summary ---
:1950 Author Organization [place] Address [address] [place] [address]. [place] [address] Care Team Providers Name Role Phone Ingrid Santana RN Unavailable Momo Forbes Primary Care Provider Reason for Visit Auth/Cert - Closed Specialty Diagnoses / Procedures Referred By Contact Refer red To Contact Med Surg Diagnoses end stage renal disease dialysis End stage renal failure on dialysis Renal Failure Uu U7a Procedures TRANSPLANT KIDNEY RECIPIENT DONOR [address] [place] [address] Phone: Referral ID Status Reason Start Date Expiration Date Visits Requ ested Visits Authorized [id number] Closed 02/04/2014 08/03/2014 1 1 Encounter Details Date Type Department Care Team Description 02/02/2014 Anesthesia Event [facility] Joseph Ivey MD XXX RESIGNED XXX [address] [place], [place] [address] PeriOp Services Leigh Ann Blank MD [address] [facility] [address] [place] [address] [address] [place] [address] Anesthesia Record Procedure Summary Procedure Name Responsible Anesthesia Start Anesthesia Stop Anesthesiologist Time Time Kidney Transplant , Joseph Ivey MD 02/02/14 1725 2242 ureteral stent placement (N/A Abdomen) Events Date Time Event Comment 02/02/2014 1725 An Start 1737 An Start Data 1748 An Induction 1751 AN Start Iso Billing 1753 An Intubation 1853 AN INCISION 1924 MD Present 2006 MD Present 2058 MD Present 2139 MD Present 2216 AN End Iso Billing 2223 MD Present 2227 AN Extubation 2230 an stop data 2241 An Stop Electronically s igned by Myriam Mandujano on February 02, 2014 10:42 P M Name Total midazolam 1mg/mL 2 mg fentanyl 50mcg/mL 150 mcg lidocaine 2% 100 mg propofol 10mg/mL 200 mg HYDROmorphone (DILAUDID) (PF) injection 1 mg/mL 1 mg ePHEDrine 5 mg/mL 15 mg glycopyrrolate 0.2mg/mL 1.2 mg neostigmine 1mg/mL 5 mg cisatracurium 2mg/mL 30 mg furosemide 10mg/mL 80 mg mannitol 20% 25 g mycophenolate (CELLCEPT) 1,000 mg in D5W IVPB 1 g methylPREDNISolone sodium succinate (Solu-MEDROL) inje ction 500 mg 500 mg anti-thymocyte globulin (THYMOGLOBULIN - Rabbit) 100 m g in NaCl 0.9% IVPB 100 mg cefUROXime (ZINACEF) 1.5 g vial to attach to IVPB 3 g sodium chloride 0.9% 1,700 mL Agents Name O2 Air Exp Isoflurane Ins Isoflurane Blood No blood administrations on file. Lines, Drains, and Airways Type Details Placement Removal Hemodialysis Vascular Arteriovenous fistula; 02/02/14 1507 by Access Right; Arm Peripheral IV 02/15/12; 1337; 22 G, 1 02/15/12 1337 by 4 0100 by inch; Left; Median Yonathan Montes De Oca, Ju lie cubital vein MYAH Sanchez, RN (antecubital fossa); Alcohol; None; Tolerated well Incision/Surgical Site 02/02/14; Right; 02/02/14 0000 by 4 0921 by Abdomen; 04/01/14; 0921 Levon Chappell RN Ngek ia, Michelle Corona RN Peripheral IV 02/02/14; 1621; Right; 02/02/14 1621 by 02/02/14 2327 by Hand Inez Mckeon Sara E RN Saima, DICER OPERATOR RETIRED ETT 02/02/14; 1753; Airway 02/02/14 1753 by 02/02/14 2228 by Size: 8; Cuffed; Oral Myriam Mandujano, Nazia, Fosteru nnarm, DO endotracheal tube; Blade Type: Dominick; Blade Size: 4; Place by: Juanita Mandujano; Insertion Attempts: 1; Secured at (cm)to lip: 24 cm; Breath Sounds: Equal, clear and bilateral; End Tidal CO2: Present; Dentition: Intact; Grade View of Cords: 1 (Easy mask, grade 1 view) Peripheral IV 02/02/14; 1756; 18 G; 02/02/14 1756 by 02/03/14 0559 by Left; Lower forearm Myriam Mandujano, Tasia Dailey RN Urethral Catheter 02/02/14; 1800; No; 02/02/14 1800 by 02/05/14 1505 by Strict 1-2 Hour I&O, Rubi Bartholomew RN Gilbert, Danielle Deep Sedation/Paralysis, BOGDAN Fletcher Anesthesia CVC Triple Lumen 02/02/14; 1815 02/02/14 1815 by 04/01/14 0922 by Myriam Mandujano DO Ngekia, Fatima S, RN Closed/Suction Drain 02/02/14; 2146; 1; 02/02/14 2146 by 4 0921 by Right; RLQ; Bulb; 19 FilLevon marin RN Ngekia, Fatima S, French RN documented in this encounter Social History Tobacco [...] encounter OR Notes Anesthesia Postprocedure Evaluation - Joseph Ivey MD - 02/02/2014 10:56 PM CDT Anesthesia Post-Evaluation Note Patient: Diego Guthrie Patient location: PACU Procedure(s) Performed: Procedure(s) with comments: TRANSPLANT KIDNEY RECIPIENT DONOR - Kidney Transplant , ureteral stent placement Anesthesia type: General, ETT Post Op Diagnosis: * No post-op diagnosis entered * No value filed. Patient Condition Respiratory Function (RR / SpO2 / Airway Patency): Satisfactory Cardiac Function (HR / Rhythm / BP): Satisfactory Mental Status: Satisfactory. Able to fully participate in evaluation Temperature: Satisfactory Pain Control: Satisfactory PONV: None Beta-Thelma Therapy: None indicated Hydration Status: Satisfactory Last Vitals: Filed Vitals: 02/02/14 1645 02/02/14 2236 02/02/14 2245 BP: 149/83 133/72 142/69 Pulse: Temp: 36.6 ??C (97.9 ??F) Resp: 16 12 12 SpO2: 100% 100% Additional Comments: Anesthesia Procedure Notes - Myriam Mandujano DO - 02/02/2014 6:17 PM CDT Associated Order(s): ANE CENTRAL LINE CATHETER PROCEDURE PROCEDURE NOTE Pre-Procedure Performed by Nazia and in the presence of a teaching physician Loni Procedure Times:02/02/2014 6:00 PM and 02/02/2014 6:18 PM Location: OR. PreAnesthestic Checklist: patient identified, IV checked, risks and benefits discussed, monitors andequipment checked and pre-op evaluation Timeout Correct Patient: Yes Correct Procedure: central line Correct Site: Yes Correct Laterality: N/A Correct Position: Yes Site Marked: N/A Procedure Documentation central line ASA 3 Insertion Site: left and internal jugular Ultrasound guided Vein evaluated via U/S for patency/adequacy of cortis insertion is adequate, and using realtime U/S imaging the cathy was punctured, and needle was observed entering vein on U/S Permanent Image entered into patient's record Position: Prep: chlorhexidine gluconate and isopropyl alcohol, patient draped, mask, sterile gloves, hand hygiene, hat and sterile gown Catheter: 7 Fr, 20 cm, T.L. Secured by suture Biopatch and Tegaderm dressing used.Assessment/Narrative Blood aspirated all lumens:yes Comments: First attempt into right IJ unsuccessful likely 2/2 to clot encounter. Catheter passed easily into [facility]. Anesthesia Preprocedure Evaluation - Joseph Ivey MD - 02/02/2014 2:18 PM CDT Anesthesia Evaluation . Pt has had prior anesthetic. Type: General No history of anesthetic complications ROS/MED HX ENT/Pulmonary: - neg pulmonary ROS (-) tobacco use Neurologic: - neg neurologic ROS Cardiovascular: (+) hypertension . : . . . :. . METS/Exercise Tolerance: >4 METS Hematologic: (+) Anemia (Hb 11.5. 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 Dialyzes MWF) type: ESRD Pt requires dialysis type: Hemodialysis Endo: (+) type II DM Using insulin Diabetic complications: nephropathy neuropathy retinopathy, . 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 Last ate solid food at 9 AM. Diet Coke at noon. ECHO 02/08/12: No significant valvular abnormalities were noted. Mild [...] is normal. No pericardial effusion is present. PMHx/PSHx: Past Medical History Diagnosis Date ??? Diabetes [...] eyes ??? Cataract iol, rt/lt both eyes No current facility-administered medications on file prior to encounter. Current Outpatient Prescriptions on File Prior to Encounter: Calcium Carbonate-Vitamin D (CALCIUM + D PO) Take by mouth daily. lisinopril (PRINIVIL,ZESTRIL) 40 MG tablet Take 40 mg by mouth 2 times daily. METOPROLOL SUCCINATE PO Take by mouth daily. aspirin 81 MG tablet Take 1 tablet by mouth daily. B lammyeq-H-fgumo acid (NEPHROCAPS) 1 MG capsule Take 1 capsule by mouth daily. LANTUS VIAL 100 UNITS/ML SC SOLN Inject 40 Units Subcutaneous daily. HumaLOG VIAL 100 UNITS/ML SOLN Inject 3-13 Units Subcutaneous 3 times daily (before meals). sertraline (ZOLOFT) 100 MG tablet Take 100 mg by mouth daily. zolpidem (AMBIEN) 10 MG tablet Take 10 mg by mouth nightly as needed. ECHO 02/08/12: Interpretation Summary No significant valvular abnormalities were noted. Mild [...] is normal. No pericardial effusion is present. PatientHeight: 72 in PatientWeight: 265 lbs SystolicPressure: 176 mmHg DiastolicPressure: 87 mmHg BSA 2.4 m^2 Procedure Echocardiogram with two-dimensional, color and spectral Doppler performed. Adequate quality two-dimensional was performed and interpreted. Good quality color and spectral Doppler were performed and interpreted. Left Ventricle Left ventricular size is normal. Global and regional left ventricular function is normal with an EF of 55-60%. Mild to moderate concentric wall thickening consistent with left ventricular hypertrophy is present. Grade II of diastolic dysfunction ( pseudonormal pattern). No regional wall motion abnormalities are seen. Right Ventricle Right ventricular function, chamber size, wall motion, and thickness are normal. Atria The right atria appears normal. Moderate left atrial enlargement is present. Mitral Valve Moderate mitral annular calcification is present. Mild mitral insufficiency is present. Aortic Valve The aortic valve is tricuspid. Trace aortic insufficiency is present. Tricuspid Valve The tricuspid valve is normal. Trace tricuspid insufficiency is present. The peak velocity of the tricuspid regurgitant jet is not obtainable. Pulmonary artery systolic pressure cannot be assessed. Pulmonic Valve The pulmonic valve cannot be assessed. Vessels The inferior vena cava is normal. The aorta root is normal. Pericardium No pericardial effusion is present. Compared to Previous Study Previous study not available for comparison. MMode 2D Measurements & Calculations IVSd: 1.6 cm LVIDd: 5.3 cm LVIDs: 3.1 cm LVPWd: 1.5 cm FS: 41 % LV mass(C)d: 365 grams Ao root diam: 3.7 cm LA dimension: 5.5 cm LA/Ao: 1.5 LVOT diam: 2.4 cm EDV(MOD-bp): 0.00 ml ESV(MOD-bp): 0.00 ml Doppler Measurements & Calculations MV E point: 120 cm/sec MV A point: 118 cm/sec MV E/A: 1.0 MV dec time: 0.27 sec Ao V2 max: 201 cm/sec Ao max P mmHg Ao V2 mean: 138 cm/sec Ao mean P.0 mmHg Ao V2 VTI: 49 cm Physical Exam Normal systems: dental Airway Mallampati: II TM distance: >3 FB Neck ROM: full Dental Cardiovascular Rhythm and rate: regular and normal Pulmonary breath sounds clear to auscultation Anesthesia Plan ASA Score: 3 and emergent. Plan for General and ETT - with Propofol and Intravenous induction.Maintenance will be Balanced. Anesthetic plan, risks, benefits and alternatives discussed with: patient or sales donor recruitment representative. Possibility of blood products discussed. I agree with the plan written by the resident Equipment:Central Line - ASA 3E - GETA /RSI with standard ASA monitors, IV induction, balanced anesthetic - PIV x 2, central line - Antibiotics per surgery - PONV prophylaxis - Pain management with Fentanyl/dilaudid boluses - Blood products available, possible administration discussed. - Relevant risks, benefits, alternatives and the anesthetic plan were discussed with patient/family or family sales donor recruitment representative. All questions were answered and there was agreement to proceed. History & Physical Review Leigh Ann Blank MD Anesthesiology [phone] 2:47 PM February 02, 2014 Diego Guthrie was seen and examined and the medical history was reviewed with him. The anesthetic plan was discussed, risks were explained and questions were answered. He agrees to proceed as discussed. I have reviewed this note and agree with the assessment and plan. Joseph Ivey M.D. Staff Anesthesiologist [phone] 02/02/2014 4:48 PM documented in this encounter Miscellaneous Notes Anesthesia Care Transfer Note - Myriam Mandujano DO - 02/02/2014 10:37 PM CDT Anesthesia Care Transfer Note Patient: Diego Guthrie Transferred to: PACU Patient vital signs: stable Airway: none Transported on 8L facemask, VSS, report given to PACU documented in this encounter Plan of Treatment Not on filedocumented as of this encounter Procedures Procedure Name Priority Date/Time Associated Diagnosis Comme nts FV AN SC PA CENTRAL Routine 02/02/2014 6:19 PM Re sults for this LINE CATHETER CDT procedure are in PROCEDURE the results section. documented in this encounter Results Central line catheter placement (02/02/2014 6:19 PM CDT) Narrative Myriam Mandujano DO - 02/02/2014 6:19 PM C DT Myriam Mandujano, ? 02/02/2014 ??6:19 PM PROCEDURE NOTE Pre-Procedure Performed by Nazia and in the presence of a teaching physician ?? Loni Procedure Times:02/02/2014 6:00 PM and 6:18 PM Location: OR. ?? PreAnesthestic Checklist: patient identi fied, IV checked, risks and benefits discussed, monitors and equ ipment checked and pre-op evaluation Timeout Correct Patient: Yes Correct Procedure: central line Correct Site: Yes Correct Laterality: N/ A Correct Position: Yes Site Marked: N/A Procedure Documentation central line ASA 3 Insertion Site: left and internal jugula r Ultrasound guided Vein evaluated via U/S for patency/adequacy of cortis insertion is adequate, and using realtime U/S imaging the cathy was punctured, and needle was obser laura entering vein on U/S ?? Permanent Image entered into patient's r ecord Position: Prep: chlorhexidine gluconate and isopro pyl alcohol, patient draped, mask, sterile gloves, hand hygie ne, hat and sterile gown Catheter: 7 Fr, 20 cm, T.L. Secured by s uture Biopatch and Tegaderm dressing used.Assessment/Narrat jo Blood aspirated all lumens:yes Comments: First attempt into right IJ unsuccessful likely 2/2 to clot encounter. Catheter passed easily into [facility]. Hyunnarm Nazia DO SC ANESTHESIA documented in this encounter Visit Diagnoses Not on filedocumented in this encounter Administered Medications Inactive Administered Medications - up to 3 most recent administrations Medication Order MAR Action Action Date Dose Rate Site 0.9 % sodium chloride IV solution New Bag 02/02/2014 5:25 PM CDT CONTINUOUS PRN, Anesthesia Intra-op, Starting on 02/02/14 at 1725, Until 02/02/14 at 2242 anti-thymocyte globulin (THYMOGLOBULIN - Given 02/02/2014 6:42 P M CDT 100 mg Rabbit) 100 mg in NaCl 0.9% IVPB 100 mg, Intravenous, ONCE, On 02/02/14 at 1400, For 1 dose, Give in OR over 6 hours with 0.22 micron filter in central line. Round to nearest 25 mg increment (Max 100 mg)., Pre-procedure cefUROXime (ZINACEF) 1.5 g vial to attach to Given 8:20 PM CDT 1.5 g IVPB Routine, 1.5 g, Intravenous, ONCE, On 02/02/14 at 1400, For 1 dose, Give in OR., Indications: Perioperative Pharmacoprophylaxis, Pre-procedure Given 02/02/2014 6:23 PM CDT 1.5 g cisatracurium (NIMBEX) injection Given 02/02/2014 9:21 PM CDT 2 mg Intravenous, PRN, Starting on 02/02/14 at 1900, Anesthesia Intra-op Given 02/02/2014 8:24 PM CDT 4 mg Given 02/02/2014 7:55 PM CDT 4 mg ePHEDrine in 0.9% NaCl injection (dilute d) Given 02/02/2014 9:41 PM CDT 5 mg PRN, Starting on 02/02/14 at 2024, Anesthesia Intra-op Given 02/02/2014 9:38 PM CDT 5 mg Given 02/02/2014 8:24 PM CDT 5 mg fentaNYL (SUBLIMAZE) injection Given 02/02/2014 7:15 PM CDT 50 mcg PRN, moderate to severe pain, Starting on 02/02/14 at 1749, Anesthesia Intra-op Given 02/02/2014 5:49 PM CDT 100 mcg furosemide (LASIX) injection Given 02/02/2014 10:00 PM CDT 10 mg PRN, Starting on 02/02/14 at 2041, Anesthesia Intra-op Given 02/02/2014 9:59 PM CDT 10 mg Given 02/02/2014 9:57 PM CDT 10 mg glycopyrrolate (ROBINUL) injection Given 02/02/2014 10:17 PM CDT 1 mg PRN, Starting on 02/02/14 at 1803, Anesthesia Intra-op Given 02/02/2014 6:03 PM CDT 0.2 mg HYDROmorphone (PF) (DILAUDID) injection Given 02/02/2014 9:52 PM CDT 0.4 mg PRN, moderate to severe pain, Starting on 02/02/14 at 2129, Anesthesia Intra-op Given 02/02/2014 9:45 PM CDT 0.3 mg Given 02/02/2014 9:29 PM CDT 0.3 mg lidocaine injection 2% (MDV) Given 02/02/2014 5:49 PM CDT 100 mg Intravenous, PRN, Starting on 02/02/14 at 1749, Anesthesia Intra-op mannitol 20 % infusion Given 02/02/2014 8:50 PM CDT 5 g PRN, Starting on 02/02/14 at 2041, Anesthesia Intra-op Given 02/02/2014 8:48 PM CDT 5 g Given 02/02/2014 8:46 PM CDT 5 g methylPREDNISolone sodium succinate Given 02/02/2014 6:20 PM CDT 500 mg (Solu-MEDROL) injection 500 mg 500 mg, Intravenous, ONCE, Administer over 30 Minutes, On 02/02/14 at 1400, For 1 dose, Give in OR on induction. Give prior to rabbit antithymocyte globulin. Doses >125mg need to be in at least 50 mL IVPB., Pre-procedure midazolam (VERSED) injection Given 02/02/2014 5:25 PM CDT 2 mg PRN, anxiety, Starting on 02/02/14 at 1725, Anesthesia Intra-op mycophenolate (CELLCEPT) 1,000 mg in D5W IVPB Given 02/02/2014 6:42 PM CDT 1 g 1,000 mg, Intravenous, at 82.5 mL/hr, ONCE, Administer over 2 Hours, On 02/02/14 at 1400, For 1 dose, Give in OR on induction., Pre-procedure neostigmine (PROSTIGMINE) injection Given 02/02/2014 10:17 PM CDT 5 mg Intravenous, PRN, Starting on 02/02/14 at 2217, Anesthesia Intra-op propofol (DIPRIVAN) injection 10 mg/mL v ial Given 02/02/2014 5:49 PM CDT 200 mg PRN, Starting on 02/02/14 at 1749, Anesthesia Intra-op documented in this encounter Care Teams Hide Stretcher Hand Relationship Specialty Start Date End Date Momo Forbes PCP - General Family Practice 01/02/14 [facility] [address] [place] [address] Ingrid Santana, RN Registered Nurse Transplant 02/10/12 10/01/15 documented as of this encounter
--- OUTSIDE RECORDS SUMMARY | 2022-03-30 18:51 | XMS_ITS | Encounter Summary ---
:1950 Author Organization [place] Address [facility] [place] [address] Care Team Providers Name Role Phone Ingrid Santana RN Unavailable Momo Forbes Primary Care Provider Encounter Details Date Type Department Care Team Description 02/02/2014 Results Only LABORATORY RESULTS Migel Merchant MD [address] [place] [address] (Wo rk) Social History Tobacco Use [...] Name Priority Date/Time Associated Comments Diagnosis HLA FLOW T/B Routine 02/02/2014 6:51 PM Results f or this CROSSMATCH AUTO CDT procedure ar e in the results section. documented in this encounter Results HLA Flow T/B Crossmatch Auto (02/02/2014 6:51 PM CDT) [facility] Method Time Signature Crossmatch Donor:ELINOR GUTHRIE ?Crossmatch Date:02/02/2014 HISTOTRAC Result (Note) Serum Date ??Test ? Test Method ?? Cell ? Result ? Enrique Shift ??Pos Cutoff ?Comments 02/02/2014 ??auto/T1 ?FLOW ?T PBL ? Neg ?23 ?>43 02/02/2014 ??auto/B1 ?FLOW ?B PBL ? Neg ?39 ?>70 Specimen Anatomical Collection Method Collection Time Receive d Time (Source) Location / / Volume Laterality 02/02/2014 6:51 PM 02/02/ 4 6:58 CDT PM CDT Migel Merchant MD LAB - IMMUNOLOGY ORDERABLES Performing Organization Address City/State/ZIP Code Phon e Number [facility] Immunology/Histocompatabil [place], [place] [address] [facility] [address], Room 3[address]580 HISTOTRAC documented in this encounter Visit Diagnoses Not on filedocumented in this encounter Care Teams Multicut Line Operator Relationship Specialty Start Date End Date Momo Forbes PCP - General Family Practice 01/02/14 [facility] [address] [place] [address] Ingrid Santana, RN Registered Nurse Transplant 02/10/12 10/01/15 documented as of this encounter
--- OUTSIDE RECORDS SUMMARY | 2022-03-30 18:51 | XMS_ITS | Encounter Summary ---
:1950 Author Organization [place] Address [facility] [place] [address] Care Team Providers Name Role Phone Ingrid Santana RN Unavailable Momo Forbes Primary Care Provider Encounter Details Date Type Department Care Team Description 02/02/2014 Results Only LABORATORY RESULTS Migel Merchant MD [address] [place] [address] (Wo rk) Social History Tobacco Use [...] 6:51 PM Results f or this CROSSMATCH ALLO CDT procedure ar e in the results section. documented in this encounter Results HLA Flow T/B Crossmatch Allo (02/02/2014 6:51 PM CDT) [facility] Method Time Signature Crossmatch Donor:[id number], ?Crossmatch Date:02/02/2014 HISTOTRAC Result (Note) Serum Date ??Test ? Test Method ?? Cell ? Result ? Enrique Shift ??Pos Cutoff ?Comments 02/02/2014 ??allo/T1 ?FLOW ?T node ? Neg ?-10 ? >43 02/02/2014 ??allo/B1 ?FLOW ?B node ? Neg ?-24 ? >70 ?No donor specific antibody by Flow S dulce Antigen Beads in serum dates tested. Specimen Anatomical Collection Method Collection Time Receive d Time (Source) Location / / Volume Laterality 02/02/2014 6:51 PM 4 6:58 CDT PM CDT Migel Merchant MD LAB - IMMUNOLOGY ORDERABLES Performing Organization Address City/State/ZIP [facility] Phon e Number [facility] Immunology/Histocompatabil [place], [place] [address] ity [facility] [address], Room [address] HISTOTRAC documented in this encounter Visit Diagnoses Not on filedocumented in this encounter Care Teams Paper Roller Relationship Specialty Start Date End Date Momo Forbes PCP - General Family Practice 01/02/14 [facility] [address] [place] [address] Ingrid Santana, RN Registered Nurse Transplant 02/10/12 10/01/15 documented as of this encounter
--- OUTSIDE RECORDS SUMMARY | 2022-03-30 18:52 | XMS_ITS | Encounter Summary ---
:1950 Author Organization [place] Address [address] [place] [address] Care Team Providers Name Role Phone Toña Jones MD Primary Care Provider Ingrid Santana RN Unavailable Encounter Details Date Type Department Care Team Description 07/30/2013 Results Only LABORATORY RESULTS Mingo Dangelo MD [address] [facility] [address] [place] [address] (Wo rk) Social History Tobacco [...] Comme nts HLA LUKASZ CLASS II Routine 07/30/2013 Results for this SINGLE ANTIGEN procedure are in the results section . documented in this encounter Results HLA Lukasz Class II Single Antigen (07/30/2013) [facility] Method Time Signature SA2 Test Single Antigen HISTOTRAC Method SA2 Cell Class II HISTOTRAC SA2 PRA %POS 0 HISTOTRAC SA2 Hi Risk None HISTOTRAC Lukasz SA2 Mod Risk None HISTOTRAC Lukasz SA2 Comments High-risk, mfi >3,000. Mod-r isk, mfi 500-3,000. Predictive PRA derived HISTOTRAC from local donor pool. Specimen (Source) Anatomical Collection Method Collection Time Re ceived Time Location / / Volume Laterality 07/30/2013 07/31/2013 2:10 PM RADIO INTELLIGENCE OPERATOR Mingo Dangelo MD LAB - IMMUNOLOGY ORDERABLES Performing Organization Address City/State/ZIP Code Phon e Number [facility] Immunology/Histocompatabil [place], [place] [address] ity [facility] [address], [address]-580 HISTOTRAC documented in this encounter Visit Diagnoses Not on filedocumented in this encounter Care Teams Canceling Machine Operator Relationship Specialty Start Date End Date Toña Jones MD PCP - General Nephrology 11/25/11 01/01/14 Ingrid Santana RN Registered Nurse Transplant 02/10/12 10/01/15 documented as of this encounter
--- OUTSIDE RECORDS SUMMARY | 2022-03-30 18:52 | XMS_ITS | Encounter Summary ---
:1950 Author Organization [place] Address [facility] [place] [address] Care Team Providers Name Role Phone Toña Jones MD Primary Care Provider Ingrid Santana RN Unavailable Momo Forbes Primary Care Provider Encounter Details Date Type Department Care Team Description 11/05/2013 Historic Results GH CONVERSION Provider, MD Marcela Social History Tobacco Use Types Packs/Day Years [...] Name Priority Date/Time Associated Diagnosis Comme nts LAB RESULT - HIM SCAN - 11/05/2013 8:27 AM CDT ARCHIVE documented in this encounter Results LAB RESULT - HIM SCAN - ARCHIVE (11/05/2013 8:27 AM CDT) Specimen (Source) Anatomical Location Collection Method / Collectio n Time Received Time / Laterality Volume Narrative This result has an attachment that is no t available. Marcela Cordero MD LAB - BLOOD ORDERABLES documented in this encounter Visit Diagnoses Not on filedocumented in this encounter Care Teams Brand Ambassador Promotional Model Relationship Specialty Start Date End Date Toña Jones MD PCP - General Nephrology 11/25/11 01/01/14 Momo Forbes PCP - General Family Practice 01/02/14 [facility] [address] [place] [address] Ingrid Santana, RN Registered Nurse Transplant 02/10/12 10/01/15 documented as of this encounter
--- OUTSIDE RECORDS SUMMARY | 2022-03-30 18:52 | XMS_ITS | Encounter Summary ---
:1950 Author Organization [place] Address [facility] [place] [address] Care Team Providers Name Role Phone Ingrid Santana RN Unavailable Momo Forbes Primary Care Provider Encounter Details Date Type Department Care Team Description 01/21/2014 Results Only LABORATORY RESULTS Mingo Dangelo MD [address] [facility] [address] [place] [address] (Wo rk) Social History Tobacco [...] Priority Date/Time Associated Diagnosis Comme nts HLA FLOW T/B CROSSMATCH Routine 01/21/2014 Resu lts for this ALLO procedure are i n the results section . documented in this encounter Results HLA Flow T/B Crossmatch Allo (01/21/2014) [facility] Method Time Signature Crossmatch Donor:[id number], ?Crossmatch Date:02/02/2014 HISTOTRAC Result (Note) Serum Date ??Test ? Test Method ?? Cell ? Result ? Enrique Shift ??Pos Cutoff ?Comments 01/21/2014 ??allo/T1 ?FLOW ?T node ? Neg ?-21 ? >43 01/21/2014 ??allo/B1 ?FLOW ?B node ? Neg ?-21 ? >70 11/05/2013 ??allo/T2 ?FLOW ?T node ? Neg ?-14 ? >43 11/05/2013 ??allo/B2 ?FLOW ?B node ? Neg ?-11 ? >70 ?No donor specific antibody by Flow S dulce Antigen Beads in serum dates tested. ??In lab dates requested by Emma santiago ??No Auto crossmatch performed. Specimen (Source) Anatomical Collection Method Collection Time Re ceived Time Location / / Volume Laterality 01/21/2014 01/22/2014 2:30 PM CDT Mingo Dangelo MD LAB - IMMUNOLOGY ORDERABLES Performing Organization Address City/State/ZIP Code Phon e Number [facility] Immunology/Histocompatabil [place], [place] [address] ity ealth [facility] [address] [facility] [address], Room 3-580 HISTOTRAC documented in this encounter Visit Diagnoses Not on filedocumented in this encounter Care Teams Shoulder Joiner Relationship Specialty Start Date End Date Momo Forbes PCP - General Family Practice 01/02/14 [facility] [address] [place] [address] Ingrid Santana, RN Registered Nurse Transplant 02/10/12 10/01/15 documented as of this encounter
--- OUTSIDE RECORDS SUMMARY | 2022-03-30 18:52 | XMS_ITS | Encounter Summary ---
:1950 Author Organization [place] Address [address] [place] [address] Care Team Providers Name Role Phone Toña Jones MD Primary Care Provider Ingrid Santana RN Unavailable Encounter Details Date Type Department Care Team Description 10/11/2012 Results Only LABORATORY RESULTS Barbara Bradley MD [address] [place], [place] [address] Social History Tobacco Use Types Packs/Day Years [...] Diagnosis Comme nts HLA LUKASZ CLASS I SINGLE Routine 10/11/2012 Resul ts for this ANTIGEN procedure are i n the results section . documented in this encounter Results HLA Lukasz Class I Single Antigen (10/11/2012) [facility] gist Method Time Signature SA1 Test Single Antigen HISTOTRAC Method SA1 Cell Class I HISTOTRAC SA1 PRA %POS 1 HISTOTRAC SA1 Hi Risk None HISTOTRAC Lukasz SA1 Mod Risk A:43 HISTOTRAC Lukasz SA1 Comments High-risk, mfi >3,000. Mod-r isk, mfi 500-3,000. Predictive PRA derived HISTOTRAC from local donor pool. Specimen (Source) Anatomical Collection Method Collection Time Re ceived Time Location / / Volume Laterality 10/11/2012 10/12/2012 1:03 PM TIE PULLER Barbara Bradley MD LAB - IMMUNOLOGY ORDERABLES Performing Organization Address City/State/ZIP Code Phon e Number [facility] Immunology/Histocompatabil [place], [place] [address] ity [facility] [address], Room 3-580 HISTOTRAC documented in this encounter Visit Diagnoses Not on filedocumented in this encounter Care Teams Home Improvement Contractor Relationship Specialty Start Date End Date Toña Jones MD PCP - General Nephrology 11/25/11 01/01/14 Ingrid Santana RN Registered Nurse Transplant 02/10/12 10/01/15 documented as of this encounter
--- OUTSIDE RECORDS SUMMARY | 2022-03-30 18:52 | XMS_ITS | Encounter Summary ---
:1950 Author Organization [place] Address [facility] [place] [address] Care Team Providers Name Role Phone Toña Jones MD Primary Care Provider Ingrid Santana RN Unavailable Momo Forbes Primary Care Provider Encounter Details Date Type Department Care Team Description 02/05/2013 Historic Results GH CONVERSION Provider, MD Marcela [...] nts LAB RESULT - HIM SCAN - 02/05/2013 8:27 AM CDT ARCHIVE documented in this encounter Results LAB RESULT - HIM SCAN - ARCHIVE (02/05/2013 8:27 AM CDT) Specimen (Source) Anatomical Location Collection Method / Collectio n Time Received Time / Laterality Volume Narrative This result has an attachment that is no t available. Marcela Cordero MD LAB - BLOOD ORDERABLES documented in this encounter Visit Diagnoses Not on filedocumented in this encounter Care Teams Fire Chief'S Aide Relationship Specialty Start Date End Date Toña Jones MD PCP - General Nephrology 11/25/11 01/01/14 Momo Forbes PCP - General Family Practice 01/02/14 [facility] [address] [place] [address] Ingrid Santana, RN Registered Nurse Transplant 02/10/12 10/01/15 documented as of this encounter
--- OUTSIDE RECORDS SUMMARY | 2022-03-30 18:52 | XMS_ITS | Encounter Summary ---
:1950 Author Organization [place] Address [address] [place] [address]. [place] [address] Care Team Providers Name Role Phone Toña Jones MD Primary Care Provider Ingrid Santana RN Unavailable Momo Forbes Primary Care Provider Encounter Details Date Type Department Care Team Description 09/25/2012 Historic Results GH CONVERSION Provider, MD Marcela [...] nts LAB RESULT - HIM SCAN - 09/25/2012 8:26 AM BLOCK CAPTAIN ARCHIVE documented in this encounter Results LAB RESULT - HIM SCAN - ARCHIVE (09/25/2012 8:26 AM BLOCK CAPTAIN) Specimen (Source) Anatomical Location Collection Method / Collectio n Time Received Time / Laterality Volume Narrative This result has an attachment that is no t available. Marcela Cordero MD LAB - BLOOD ORDERABLES documented in this encounter Visit Diagnoses Not on filedocumented in this encounter Care Teams Varnish Mixer Relationship Specialty Start Date End Date Toña Jones MD PCP - General Nephrology 11/25/11 01/01/14 Momo Forbes PCP - General Family Practice 01/02/14 [facility] [address] [place] [address] Ingrid Santana, RN Registered Nurse Transplant 02/10/12 10/01/15 documented as of this encounter
--- OUTSIDE RECORDS SUMMARY | 2022-03-30 18:52 | XMS_ITS | Encounter Summary ---
:1950 Author Organization [place] Address [facility] [place] [address] Care Team Providers Name Role Phone Toña Jones MD Primary Care Provider Ingrid Santana RN Unavailable Encounter Details Date Type Department Care Team Description 08/25/2012 Results Only LABORATORY RESULTS Barbara Bradley MD [address] [place], [place] [address] Social History Tobacco Use [...] Associated Comments Diagnosis HLA FLOW T/B Routine 08/25/2012 9:49 AM Results f or this CROSSMATCH ALLO OFFICE 365 CONSULTANT procedure ar e in the results section. documented in this encounter Results HLA Flow T/B Crossmatch Allo (08/25/2012 9:49 AM OFFICE 365 CONSULTANT) [facility] Method Time Signature Crossmatch Donor:ABRAHAM HICKEY ? Crossmatch Date:08/25/2012 HISTOTRAC Result (Note) Serum Date ??Test ? Test Method ?? Cell ? Result ? Enrique Shift ??Pos Cutoff ?Comments 07/03/2012 ??allo/T1 ?FLOW ?T ? Neg ?-48 ? >58 07/03/2012 ??allo/B1 ?FLOW ?B ? Neg ?-85 ? >90 02/08/2012 ??allo/T2 ?FLOW ?T ? Neg ?-49 ? >58 02/08/2012 ??allo/B2 ?FLOW ?B ? Neg ?-86 ? >90 ?No donor specific antibody by Flow S dulce Antigen Beads in serum dates tested. Specimen Anatomical Collection Method Collection Time Receive d Time (Source) Location / / Volume Laterality 08/25/2012 9:49 AM 01/04/201 3 9:06 OFFICE 365 CONSULTANT AM OFFICE 365 CONSULTANT Barbara Bradley MD LAB - IMMUNOLOGY ORDERABLES Performing Organization Address City/State/ZIP Code Phon e Number [facility] Immunology/Histocompatabil [place], [place] [address] ity ealth [facility] [address], Room [address]-580 HISTOTRAC documented in this encounter Visit Diagnoses Not on filedocumented in this encounter Care Teams Seed Potato Cutter Relationship Specialty Start Date End Date Toña Jones MD PCP - General Nephrology 11/25/11 01/01/14 Ingrid Santana, RN Registered Nurse Transplant 02/10/12 10/01/15 documented as of this encounter
--- OUTSIDE RECORDS SUMMARY | 2022-03-30 18:52 | XMS_ITS | Encounter Summary ---
:1950 Author Organization [place] Address [address] [place] [address] Care Team Providers Name Role Phone Toña Jones MD Primary Care Provider Ingrid Santana RN Unavailable Encounter Details Date Type Department Care Team Description 10/11/2012 Results Only LABORATORY RESULTS Barbara Bradley MD [address] [place], [place] [address] Social History Tobacco Use [...] Comme nts HLA LUKASZ CLASS II Routine 10/11/2012 Results for this SINGLE ANTIGEN procedure are in the results section . documented in this encounter Results HLA Lukasz Class II Single Antigen (10/11/2012) [facility] Method Time Signature SA2 Test Single Antigen [...] / Volume Laterality 10/11/2012 10/12/2012 1:03 PM CIRCULAR RIPSAW OPERATOR Barbara Bradley MD LAB - IMMUNOLOGY ORDERABLES Performing Organization Address City/State/ZIP Code Phon e Number [facility] Immunology/Histocompatabil [place], [place] [address] ity [facility] [address], Room [address]-580 HISTOTRAC documented in this encounter Visit Diagnoses Not on filedocumented in this encounter Care Teams Metal Drilling Machine Operator Relationship Specialty Start Date End Date Toña Jones MD PCP - General Nephrology 11/25/11 01/01/14 Ingrid Santana RN Registered Nurse Transplant 02/10/12 10/01/15 documented as of this encounter
--- OUTSIDE RECORDS SUMMARY | 2022-03-30 18:52 | XMS_ITS | Encounter Summary ---
:1950 Author Organization [place] Address [facility] [place] [address] Care Team Providers Name Role Phone Toña Jones MD Primary Care Provider Ingrid Santana RN Unavailable Momo Forbes Primary Care Provider Encounter Details Date Type Department Care Team Description 11/15/2012 Historic Results GH CONVERSION Provider, MD Marcela [...] nts LAB RESULT - HIM SCAN - 11/15/2012 8:28 AM CDT ARCHIVE documented in this encounter Results LAB RESULT - HIM SCAN - ARCHIVE (11/15/2012 8:28 AM CDT) Specimen (Source) Anatomical Location Collection Method / Collectio n Time Received Time / Laterality Volume Narrative This result has an attachment that is no t available. Marcela Cordero MD LAB - BLOOD ORDERABLES documented in this encounter Visit Diagnoses Not on filedocumented in this encounter Care Teams Alodize Machine Operator Relationship Specialty Start Date End Date Toña Jones MD PCP - General Nephrology 11/25/11 01/01/14 Momo Forbes PCP - General Family Practice 01/02/14 [facility] [address] [place] [address] Ingrid Santana, RN Registered Nurse Transplant 02/10/12 10/01/15 documented as of this encounter
--- OUTSIDE RECORDS SUMMARY | 2022-03-30 18:52 | XMS_ITS | Encounter Summary ---
:1950 Author Organization [place] Address Count includes the [facility] [place] [address] Care Team Providers Name Role Phone Toña Jones MD Primary Care Provider Ingrid Santana RN Unavailable Momo Forbes Primary Care Provider Encounter Details Date Type Department Care Team Description 03/26/2013 Historic Results GH CONVERSION Provider, MD Marcela [...] nts LAB RESULT - HIM SCAN - 03/26/2013 8:27 AM CDT ARCHIVE documented in this encounter Results LAB RESULT - HIM SCAN - ARCHIVE (03/26/2013 8:27 AM CDT) Specimen (Source) Anatomical Location Collection Method / Collectio n Time Received Time / Laterality Volume Narrative This result has an attachment that is no t available. Marcela Cordero MD LAB - BLOOD ORDERABLES documented in this encounter Visit Diagnoses Not on filedocumented in this encounter Care Teams Cricket Coach Relationship Specialty Start Date End Date Toña Jones MD PCP - General Nephrology 11/25/11 01/01/14 Momo Forbes PCP - General Family Practice 01/02/14 [facility] [address] [place] [address] Ingrid Santana, RN Registered Nurse Transplant 02/10/12 10/01/15 documented as of this encounter
--- OUTSIDE RECORDS SUMMARY | 2022-03-30 18:52 | XMS_ITS | Encounter Summary ---
:1950 Author Organization [place] Address [facility] [place] [address] Care Team Providers Name Role Phone Toña Jones MD Primary Care Provider Ingrid Santana RN Unavailable Encounter Details Date Type Department Care Team Description 12/10/2013 Telephone Transplant Surgery C Nazia Bledsoe LPN 2nd Floor, Clinic [address] [place] [address] [phone] Social History Tobacco Use Types Packs/Day [...] this encounter Miscellaneous Notes Telephone Encounter - Nazia March LPN - 12/10/2013 2:37 PM CDT Spoke with patient re: scheduling with [facility] for [facility], cardiology, and echo. documented in this encounter Plan of Treatment Not on filedocumented as of this encounter Visit Diagnoses Not on filedocumented in this encounter Care Teams Hand Straightener Relationship Specialty Start Date End Date Toña Jones MD PCP - General Nephrology 11/25/11 Ingrid Santana, RN Registered Nurse Transplant 02/10/12 documented as of this encounter
--- OUTSIDE RECORDS SUMMARY | 2022-03-30 18:52 | XMS_ITS | Encounter Summary ---
:1950 Author Organization [place] Address [address] [place] [address] Care Team Providers Name Role Phone Toña Jones MD Primary Care Provider Ingrid Santana RN Unavailable Encounter Details Date Type Department Care Team Description 07/30/2013 Results Only LABORATORY RESULTS Mingo Dangelo MD [address] [facility] [address] [place] [address] (Wo rk) Social History Tobacco [...] nts HLA LUKASZ CLASS I SINGLE Routine 07/30/2013 Resul ts for this ANTIGEN procedure are i n the results section . documented in this encounter Results HLA Lukasz Class I Single Antigen (07/30/2013) [facility] Method Time Signature SA1 Test Single Antigen [...] / Volume Laterality 07/30/2013 07/31/2013 2:10 PM APPRAISAL ANALYST Mingo Dangelo MD LAB - IMMUNOLOGY ORDERABLES Performing Organization Address City/State/ZIP Code Phon e Number [facility] Immunology/Histocompatabil [place], [place] [address] ity [facility] [address], Room [address]-580 HISTOTRAC documented in this encounter Visit Diagnoses Not on filedocumented in this encounter Care Teams Aviation All Source Intelligence Relationship Specialty Start Date End Date Toña Jones MD PCP - General Nephrology 11/25/11 01/01/14 Ingird Santana RN Registered Nurse Transplant 02/10/12 10/01/15 documented as of this encounter
--- OUTSIDE RECORDS SUMMARY | 2022-03-30 18:52 | XMS_ITS | Encounter Summary ---
:1950 Author Organization [place] Address [address] [place] [address] Care Team Providers Name Role Phone Ingrid Santana RN Unavailable Momo Forbes Primary Care Provider Encounter Details Date Type Department Care Team Description 01/21/2014 Results Only LABORATORY RESULTS Mingo Dangelo MD [address] [facility] [address] [place] [address] (Wo rk) Social History Tobacco [...] Comme nts HLA LUKASZ CLASS II Routine 01/21/2014 Results for this SINGLE ANTIGEN procedure are in the results section . documented in this encounter Results HLA Lukasz Class II Single Antigen (01/21/2014) [facility] Method Time Signature SA2 Test SA HI HISTOTRAC Method SA2 Cell Class II HISTOTRAC SA2 PRA %POS 0 HISTOTRAC SA2 Hi Risk None HISTOTRAC Lukasz SA2 Mod Risk None HISTOTRAC Lukasz SA2 Comments Test performed by aden soto. Serum heat inactivated. High-risk, HISTOTRAC mfi >3,000. Mod-risk, mfi 500-3,000. Predictive PRA derived from local donor pool. Specimen (Source) Anatomical Collection Method Collection Time Re ceived Time Location / / Volume Laterality 01/21/2014 01/22/2014 2:30 PM CDT Mingo Dangelo MD LAB - IMMUNOLOGY ORDERABLES Performing Organization Address City/State/ZIP Code Phon e Number [facility] Immunology/Histocompatabil [place], [place] [address] ity ealth [facility] [address], Room [address]580 HISTOTRAC documented in this encounter Visit Diagnoses Not on filedocumented in this encounter Care Teams Educational Audiologist Relationship Specialty Start Date End Date Momo Forbes PCP - General Family Practice 01/02/14 [facility] [address] [place] [address] Ingrid Santana, RN Registered Nurse Transplant 02/10/12 10/01/15 documented as of this encounter
--- OUTSIDE RECORDS SUMMARY | 2022-03-30 18:52 | XMS_ITS | Encounter Summary ---
:1950 Author Organization [place] Address [address] [place] [address] Care Team Providers Name Role Phone Toña Jones MD Primary Care Provider Ingrid Santana RN Unavailable Encounter Details Date Type Department Care Team Description 01/17/2013 Results Only LABORATORY RESULTS Barbara Bradley MD [address] [place], [place] [address] Social History Tobacco Use [...] nts HLA LUKASZ CLASS I SINGLE Routine 01/17/2013 Resul ts for this ANTIGEN procedure are i n the results section . documented in this encounter Results HLA Lukasz Class I Single Antigen (01/17/2013) [facility] gist Method Time Signature SA1 Test Single [...] ceived Time Location / / Volume Laterality 01/17/2013 01/18/2013 2:16 PM CDT Barbara Bradley MD LAB - IMMUNOLOGY ORDERABLES Performing Organization Address City/State/ZIP Code Phon e Number [facility] Immunology/Histocompatabil [place], [place] [address] ity [facility] [address], [address]580 HISTOTRAC documented in this encounter Visit Diagnoses Not on filedocumented in this encounter Care Teams Physical Therapist Relationship Specialty Start Date End Date Toña Jones MD PCP - General Nephrology 11/25/11 01/01/14 Ingrid Santana RN Registered Nurse Transplant 02/10/12 10/01/15 documented as of this encounter
--- OUTSIDE RECORDS SUMMARY | 2022-03-30 18:52 | XMS_ITS | Encounter Summary ---
:1950 Author Organization [place] Address [facility] [place] [address] Care Team Providers Name Role Phone Toña Jones MD Primary Care Provider Ingrid Santana RN Unavailable Encounter Details Date Type Department Care Team Description 04/16/2013 Results Only LABORATORY RESULTS Jesus Cardenas MD Social History Tobacco Use Types Packs/Day [...] Comme nts HLA LUKASZ CLASS II Routine 04/16/2013 Results for this SINGLE ANTIGEN procedure are in the results section . documented in this encounter Results HLA Lukasz Class II Single Antigen (04/16/2013) [facility] gist Method Time Signature SA2 Test Single Antigen HISTOTRAC Method SA2 Cell Class II HISTOTRAC SA2 PRA %POS 0 HISTOTRAC SA2 Hi Risk None HISTOTRAC Lukasz SA2 Mod Risk None HISTOTRAC Lukasz SA2 Comments High-risk, mfi >3,000. Mod-r isk, mfi 500-3,000. Predictive PRA derived HISTOTRAC from local donor pool. Specimen (Source) Anatomical Collection Method Collection Time Re ceived Time Location / / Volume Laterality 04/16/2013 04/17/2013 3:36 PM CDT Ty Feng Cardenas MD LAB - IMMUNOLOGY ORDERABLES Performing Organization Address City/State/ZIP Code Phon e Number [facility] Immunology/Histocompatabil [place], [place] [address] [facility] [address], Room [address]-580 HISTOTRAC documented in this encounter Visit Diagnoses Not on filedocumented in this encounter Care Teams Animal Rides Manager Relationship Specialty Start Date End Date Toña Jones MD PCP - General Nephrology 11/25/11 01/01/14 Ingrid Santana RN Registered Nurse Transplant 02/10/12 10/01/15 documented as of this encounter
--- OUTSIDE RECORDS SUMMARY | 2022-03-30 18:52 | XMS_ITS | Encounter Summary ---
:1950 Author Organization [facility] Address [address] [place] [address] Care Team Providers Name Role Phone Ingrid Santana RN Unavailable Momo Forbes Primary Care Provider Reason for Visit Auth/Cert - Closed Specialty Diagnoses / Procedures Referred By Contact Refer red To Contact Med Surg Diagnoses end stage renal disease dialysis End stage renal failure on dialysis Renal Failure Uu U7a Procedures TRANSPLANT KIDNEY RECIPIENT DONOR [address] [place] [address] Phone: Referral ID Status Reason Start Date Expiration Date Visits Requ ested Visits Authorized [id number] Closed 02/04/2014 08/03/2014 1 1 Encounter Details Date Type Department Care Team Description 02/02/2014 Surgery [facility] Migel Merchant , Kidney Transplant , PeriOp Services ureteral stent [address] [place] [address] [place] [address] [place], [place] [address] (Wo rk) Surgery Details Date/Time Status Location OR Service Patient Class Case Case Trauma Class Type Case? 02/02/14 4:00 Posted UU OR UU OR Transplant Inpatient PM 10 Panel 1 Procedure LRB Anes Op Region Wound Class Commen ts Kidney Transplant , N/A General Abdomen Kidne y Transplant , ureteral stent placement ureteral stent placement Surgeon Surgeon Role Service Panel Migel Merchant MD Primary Transplant 1 Caitlin Owens MD Resident - Assisting Transplant 1 documented in this encounter Social History Tobacco Use Types Packs/Day Years Used Date Former Smoker Cigars 5 Quit: 01/01/20 07 Smokeless Tobacco: Never Used Alcohol Use [...] Sign Reading Time Taken Comments Blood Pressure 149/83 02/02/2014 4:45 PM CDT Pulse 55 02/02/2014 3:42 PM CDT Temperature 36.7 ??C (98 ??F) 02/02/2014 3:42 PM CDT Respiratory Rate 16 02/02/2014 4:45 PM CDT Oxygen Saturation 97% 02/02/2014 3:42 PM CDT Inhaled Oxygen Concentration - - Weight 124.6 kg (274 lb 11.2 02/02/2014 1:05 PM With pr osthesis oz) CDT Height 182.9 cm (6') 02/02/2014 1:05 PM CDT Body Mass Index 37.92 02/02/2014 1:05 PM CDT documented in this encounter Discharge Summaries Mathew Rust MD - 02/05/2014 4:24 PM CDT Images from the original note were not included. Physician Discharge Summary Patient ID: Diego Guthrie [id number] 63 year old 1950 Admit date: 02/02/2014 [...] Take 1 tablet by mouth daily. B dxonvsb-L-bhnos acid (NEPHROCAPS) 1 MG capsule Take 1 [...] with Dr. Merchant in 2 week. Signed: Adeline Diaz 02/05/2014 4:24 PM Attestation: The patient [...] in the [facility] ([facility]) which is located on the second floor of the [facility] next to the Transplant Clinic. Your labs [...] of these appointments you will meetwith a recruitment director and meet your guest relations coordinator. Your nurse will also be in communication with your surgeon and recruitment director as needed. The direct number to the [facility] is [phone]. In the [facility] [...] the hospital. This will be located in [facility] transplant surgery clinic on the second floor.Your transplant surgeon is: Dr. Merchant. You have a ureteral stent in place which needs to be removed in 4-6 weeks. If a operations scheduler does not contact you for this, please contact your guest relations coordinator. If you have modesta in place, they will be removed in 3 weeks after operation. Notify your coordinator if you have pain over your kidney, fever greater than 101.5F, or decreased urine output. Notify your coordinator immediately if you are ever unable to take your immunosuppressive medications for any reason. 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 High protein diet x 8 weeks. Practice food safety precautions - no fish/seafood x 3 weeks. Discharge nurse--please fax discharge orders to [facility] and to his PCP with INR level and warfarin doses --done 02.08.14 bmp documented in this encounter Medications at [...] >2. He can be seen by any customer leader in the outpatient setting for coordination. Continue metoprolol 25 po bid until he is r e-evaluated. We did attempt inpatient REFUGIO guided cardioversion, but the patient developed significant bleeding while on heparin. José Miguel Alvarez M.D. Forensic Document Examiner Joseph Quintana MD - 02/08/2014 12:35 PM [...] Dr. Quintana. Sina Robison MD Nephrology Fellow [phone] Attestation: This patient has been seen and [...] Labs: CMP Recent Labs Lab 02/08/14 0642 02/07/143 02/06/14 0557 02/05/14 0702 02/02/14 1407 NA [...] interval not displayed. CBC Recent Labs Lab 02/08/14 0642 02/07/143 02/06/14 1659 02/06/14 0557 02/05/14 1204 HGB 7.8* [...] interval not displayed. INR Recent Labs Lab 02/08/14 0642 02/07/14 0423 02/06/14 0557 02/05/14 1204 INR 1.28* 1.25* 1.32* [...] Ramires RN - 02/07/2014 2:25 PM CDT Orthodontist D: Diego Guthrie 63 year old male POD #5 s/p DDKT for ESRD 2/[address] Diaz note today. Per Dr Diaz, pt will most likely be ready for d/c to home tomorrow and will return to [facility] for 5 days at 0700. Pt will [...] go home and drive. Pt will have s.o.Zhanna with him. Pt does not know where the [facility] or transplant clinic is, I told him and he replied I will find it. Pt does not care which [facility] agency will follow him--There are only 2 to choose from, [phone][facility] --I called and left a message with Estrella Fletcher and I fax'd his records tothem--pt will need start of care approx Thursday 02/15. Pt is new on warfarin and I called his PCP's office and they have INR nurses Tuesday-Tuesday their fax # is [phone] (when [facility] visits are completed --pt will call main clinic # to schedule INR draws). 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 I verified his address and phone #(is his cell) on the facesheet. Pt has not met his OP ocular care technician: Leandro Kahn, yet--I sent Leandro an in [employer] message today-with plan. A: possible d/c to home Tuesday P: see above-will follow and will call [facility] to confirm they can accept him. [...] Dr. Quintana. Sina Robison MD Nephrology Fellow [phone] Attestation: This patient has been seen and [...] interval not displayed. CBC Recent Labs Lab 02/07/1442202/06/14 1659 02/06/14 0557 02/06/14 0102 02/05/14 1204 [...] -- 91* 96* INR Recent Labs Lab 02/07/1442202/06/14 0557 02/05/14 1204 INR 1.25* 1.32* 1.24* [...] assistance Medical Decision Making: Medium Subsequent visit 83853 (moderate level decision making) PATO/Fellow/Resident Provider: Adeline [...] Rodriguez MD - 02/06/2014 4:25 PM CDT [facility] Cardiology Progress Note I have seen [...] Dr. Quintana. Sina Robison MD Nephrology Fellow [phone] Attestation: This patient has been seen and [...] focal deficit No pronator drift. Tremorabsent. Line: [facility] Data: CMP Recent Labs Lab 02/06/14 0557 [...] Dr. Quintana. Sina Robison MD Nephrology Fellow [phone] Attestation: This patient has been seen and [...] REPLACEMENT ONLY ??? insulin (regular) Stopped (02/05/14 1457) Shiva Kahn RN - 02/05/2014 4:47 PM CDT SPECIAL ASSEMBLIES SUPERVISOR NOTE I met with the patient and his yesterday at [facility] PCU-6B (telemetry unit) to discuss transition from inpatient to outpatient care following kidney translantation. 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 He has slow graft function; however, his [...] the plan for daily visits to the [facility] for 5 days after discharge followed by [...] meet with the patient again in the [facility] following discharge from [facility]. Joseph Rodriguez MD - 02/05/2014 11:16 AM CDT [facility] Cardiology Progress Note I have seen [...] is normal. No pericardial effusion is present. RT Mathew Rust MD - 02/05/2014 11:13 AM [...] kidney on 02/02/2014. Pt lives alone in [facility] though reports that his girlfriend in in the process of moving in with him. Pt girlfriend, Tete, will be present when pt returns home but she works time recorder. Pt was on dialysis for 2 1/2 years prior to transplant. Pt works independently but reports that he currently has no income coming in. Pt has primary insurancethrough Medicare and Secondary insurance through [employer]. Pt has no co-pays for his immunosuppressants and a high out of pocket cost for Valcyte, SW to look into grants for pt for Valcyte. I: Met with pt to introduce this promotion writer and explain sw role and services available while inpatient in the hospital. Asked if pt had any questions or concerns and completed an assessment of psychosocialneeds post transplant. Provided education about expectations and requirements post discharge like fol low up in the [facility]. Pt is unsure yet if he will [...] needs arise prior to discharge. CECY Kearns, REPAIR TECHNICIAN Indu Calixto MD - 02/05/2014 1:50 AM [...] changes in mental status. Indu Calixto, PGY1 Tina Angela, PT - 02/04/2014 4:57 PM CDT 02/04/14 1650 Quick Adds Type of Visit Initial PT Evaluation Cement Side Laster Cement Side Laster Present no Language [place] Island[place] Living Environment (R) Lives With alone Living Arrangements ([facility]) Home Accessibility no concerns Number of Stairs [...] up when pt is available. CECY Kearns, REPAIR TECHNICIAN [phone] phone [phone] pager Joseph Quintana MD - 02/04/2014 11:51 [...] Dr. Quintana. Sina Robison MD Nephrology Fellow [phone] Attestation: This patient has been seen and evaluated by me, oJseph Quintana MD. I have reviewed the note [...] completed shifts: In: 4194.26 [P.O.:990; I.V.:3204.26] Out: 2129 [Urine:2020; Drains:110] Gen - Alert, oriented, NAD. [...] for this basename: PTHI, in the last 60113 hours IRON STUDIES No results found for this basename: IRON, FEB, IRONSAT, THEE, in the last 02195 hours Imaging: All imaging studies reviewed by [...] Daily Progress Note 02/04/2014 Assessment & Plan: Dieog Guthrie 63 year old male s/p DDKT [...] displayed. CBC Recent Labs Lab 02/04/14 0549 02/03/14221502/03/14 0538 HGB 9.5* 9.4* < > 9.9* [...] or equal to 12.0 mlU/mL. Adeline Diaz [phone] Attestation: The patient has been seen and [...] reflected in the note and orders. . Caitlin Owens MD - 02/03/2014 11:12 AM CDT Transplant Surgery Inpatient Daily Progress Note 02/03/2014 Assessment & Plan: 63 yo M ESRD 2/2 DM2, was on HD via Right forearm fistula but made urine preop. Now s/p donor kidney transplant, with stent on 02/02/14. BUSINESS QUALITY ASSURANCE ANALYST donor. Graft function:uncertain, Cr slightly up. Slow [...] . Medical Decision Making: Medium Subsequent visit 88436 (moderate level decision making) PATO/Fellow/Resident Provider: Caitlin [...] note and orders. Migel Merchant MD, PhD automatic buffer Abdominal Organ Transplantation Carmelita Rosario, BOGDAN - 02/03/2014 9:38 AM CDT Patient removed from the UNOS waitlist after donor kidney transplant. UNOS ID is [id number]. Rafaela Cardona - 02/03/2014 9:17 AM CDT [...] followed general diet. Patient reports good appetite/intake TIE SAWYER, no nutrition issues/concnerns. CURRENT NUTRITION ORDERS - [...] DDKT ASSESSED NUTRITION NEEDS: Estimated Energy Needs: 6421-7263+ kcals (25-30+ Kcal/Kg) Justification: maintenance post-transplant Estimated [...] (6- 8 weeks). 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 Implementation Nutrition education: Provided instruction on post-transplant diet with discussion regarding protein sources and high protein needs in acute post-tx phase. 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 Discussed [...] adjustment. Rafaela Cardona RD, LD Weekend Coverage [phone] Jose Aguirre MD - 02/03/2014 4:57 AM [...] Doing well postoperatively. Pain: Controlled by Dilaudid SILK CREPE MACHINE OPERATOR Diet: NPO tonight Volume Status: Borderline low UOP, continue MIVF, 0.9 % NS 500 cc bolus given for low UOP, CVP not accurate, systolic in 100-110 Recheck hemoglobin and potassium normal. Rest of the plan per primary team. Will continue to follow. Jose Aguirre MD PGY-1.................02/03/2014 Surgery Cross Cover Pager:[phone] documented in this encounter H&P Notes Caitlin [...] 1 tablet by mouth daily. ??? 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 Kidney bx [...] note and orders. Migel Merchant MD, PhD automatic buffer Abdominal Organ Transplantation documented in this encounter Consult Notes Joseph Rodriguez MD - 02/04/2014 11:03 AM CDTAssociated Order(s): CARDIOLOGY IP CONSULT [facility] CARDIOLOGY CONSULT SERVICE INITIAL CONSULT NOTE February [...] atrial size History of present illness: Diego Guthrei is a 63 year old with diabetes, [...] 1 tablet by mouth daily. ??? 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 2. There is no [...] assessment and plan. José Miguel Alvarez MD Forensic Document Examiner Pager: [phone] February 04, 2014 Kaitlynn Leon MD - 02/03/2014 9:30 AM CDT Nephrology Initial Consult February 03, 2014 Diego Guthrie Date of : 1950 Date of Admission:02/02/2014 Primary care provider: Momo Forbes Requesting physician: Migel Merchant MD ASSESSMENT AND RECOMMENDATIONS: 1. DDKT - BUSINESS QUALITY ASSURANCE ANALYST -59 yo women; slow graft function-no immediate need for dialysis , but may require tomorrow if UO does not pickle cutter. We will monitor Induction with Thymo/Cellcept and [...] h/o type 2 Dm, who received DDKT (BUSINESS QUALITY ASSURANCE ANALYST) on 02/02/2014 donor kidney had severe atherosclerotic [...] ??? Cataract iol, rt/lt both eyes MEDICATIONS: TIE SAWYER Meds Prior to Admission medications Medication Sig Last Dose Taking? Auth Provider Calcium Carbonate-Vitamin D (CALCIUM + D PO) Take by mouth daily. Reported, Patient lisinopril (PRINIVIL,ZESTRIL) 40 MG tablet Take 40 mg by mouth 2 times daily. Reported, Patient METOPROLOL SUCCINATE PO Take by mouth daily. Reported, Patient aspirin 81 MG tablet Take 1 tablet by mouth daily. Reported, Patient B qrwtebo-T-xsvqh acid (NEPHROCAPS) 1 MG capsule Take 1 [...] Intravenous Central line Once ??? HYDROmorphone Intravenous SILK CREPE MACHINE OPERATOR Infusion Meds ??? 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 Alvin Diego Cardiovascular Disease Fellow [phone] Patient seen and examined by me with [...] Cullen MD, PhD Jarad Cullen MD, PhD [phone] documented in this encounter Nursing Notes Gretta Mary RN - 02/02/2014 11:[address] Owens with Transplant Surgery notified of stat lab results. Magnesium replaced. Dr. Blank with Anesthesia reviewed chest x-ray. CVC not deep enough to give accurate CVP readings, however all lumens aspirate blood well. Patient is ok to transfer to unit 6B per [facility]. documented in this encounter Miscellaneous Notes Plan of Care - Amanda Hernandez RN - 02/08/2014 3:44 PM CDT Problem: IP GENERAL POC-ADULT,OB,BEHAVIORAL FVCPM Goal: Individualization/Patient-Specific Goal (Adult,OB,Behavioral The patient and/or their independent sales representative will achieve their patient-specific goals related to [...] Card updated. Report called to Saima in [facility]. Left facility accompanied by s.o at 1600. Plan of Care - Amanda Hernandez RN - 02/08/2014 2:13 PM CDT Problem: IP GENERAL POC-ADULT,OB,BEHAVIORAL FVCPM Goal: Individualization/Patient-Specific Goal (Adult,OB,Behavioral The patient and/or their independent sales representative will achieve their patient-specific goals related to [...] Individualization/Patient-Specific Goal (Adult,OB,Behavioral The patient and/or their independent sales representative will achieve their patient-specific goals related to [...] Individualization/Patient-Specific Goal (Adult,OB,Behavioral The patient and/or their independent sales representative will achieve their patient-specific goals related to [...] Diet recommendations post-transplant: Heart healthy dietary 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 High protein diet x 8 weeks. Practice food safety precautions - no fish/seafood x 3 weeks. Inez Luevano MS, RD, LD Pager [phone] Pharmacy-Immunosuppression Monitoring - Em Vasquez [facility] - 02/07/2014 9:06 AM CDT Tacrolimus Monitoring [...] will continue to follow. Em Vasquez, Pharm.D., [facility] Pager [phone] Plan of Care - Annmarie Colby RN - 02/07/2014 5:11 AM CDT Problem: IP GENERAL POC-ADULT,OB,BEHAVIORAL FVCPM Goal: Individualization/Patient-Specific Goal (Adult,OB,Behavioral The patient and/or their independent sales representative will achieve their patient-specific goals related to [...] Individualization/Patient-Specific Goal (Adult,OB,Behavioral The patient and/or their independent sales representative will achieve their patient-specific goals related to [...] from ECHO lab, REFUGIO and cardioversion notdone 2/ pt off heparin and had bleeding at incision site this am. Pt became dizzy when getting out of bed,- hypoglycemia, + orthostatics, oral fluids encouraged. With increased fluid intake, urine color is becoming middle school resource teacher( tea color/bloody- >dark sy/tea color). Incisional pain [...] Physical Therapy Goals The patient and/or their independent sales representative will achieve their patient-specific goals related to [...] Physical Therapy Goals The patient and/or their independent sales representative will achieve their patient-specific goals related to [...] Individualization/Patient-Specific Goal (Adult,OB,Behavioral The patient and/or their independent sales representative will achieve their patient-specific goals related to [...] Individualization/Patient-Specific Goal (Adult,OB,Behavioral The patient and/or their independent sales representative will achieve their patient-specific goals related to [...] Physical Therapy Goals The patient and/or their independent sales representative will achieve their patient-specific goals related to [...] assist at this time. Pharmacy - Cayetano Olivera, [facility] - 02/05/2014 12:26 PM CDT Visited 02/05/2014 in hospital room prior to discharge to review medications, review discharge process and review specialty pharmacy program. Med Review: Reviewed patient's medications and medical conditions. Patient would like to use [facility] to manage all medications. Medcard: [...] Specialty Pharmacy review: Discussed the benefits of [facility] and Diego has enrolled. Also gave him supplies (blood pressure cuff, thermometer, and pill box) Other concerns: No other concerns at this time. No further questions for this pharmacist. Inez Cox, Student Pharmacist Cashier Manager [facility] [address] [place] [address] Cayetano Olivera, Pharmacist [facility] [phone] Pharmacy-Anticoagulation Service - Teresa Wright [facility] - 02/05/2014 11:29 AM CDT Clinical Pharmacy- [...] Individualization/Patient-Specific Goal (Adult,OB,Behavioral The patient and/or their independent sales representative will achieve their patient-specific goals related to [...] melonie hard time making full sentences. When promotion writer came on shift at 8pm patient [...] Individualization/Patient-Specific Goal (Adult,OB,Behavioral The patient and/or their independent sales representative will achieve their patient-specific goals related to [...] Physical Therapy Goals The patient and/or their independent sales representative will achieve their patient-specific goals related to [...] heavy lifting Plan of Care - Josseline Almendarez, BOGDAN - 02/04/2014 3:09 PM CDT Problem: IP [...] by friend. Pt transferred to chair, VSS, manager monitoring on, oriented to room. Pharmacy-Admission Medication History - Teresa Wright, [facility] - 02/04/2014 11:54 AM CDT Admission medication history interview status for the 02/02/2014 admission is complete. See [facility] admission navigator for allergy information, prior to admission medications and immunization status. Medication history interview sources (including written lists, pill bottles, clinic record):Patient Medication history source reliability:Good Primary pharmacy:[facility] phone number: [phone] Changes made to TIE SAWYER medication list (reason) Added: Vitamin D 1,000 [...] at Unknown time Yes Reported, Patient B bcaondz-Z-qsjuk acid (NEPHROCAPS) 1 MG capsule Take 1 [...] Individualization/Patient-Specific Goal (Adult,OB,Behavioral The patient and/or their independent sales representative will achieve their patient-specific goals related to [...] 45 minutes and remains in A-fib via secured entrance monitor. Repeat EKG around 1000 showed continued [...] Physical Therapy Goals The patient and/or their independent sales representative will achieve their patient-specific goals related to the plan of care. The patient-specific goals include: PT 7A: HOLD for AM per RN - pt with a-fib this morning. Plan of Care - Alisson Diane RN - 02/04/2014 6:45 AM CDT Problem: IP GENERAL POC-ADULT,OB,BEHAVIORAL FVCPM Goal: Individualization/Patient-Specific Goal (Adult,OB,Behavioral The patient and/or their independent sales representative will achieve their patient-specific goals related to [...] Individualization/Patient-Specific Goal (Adult,OB,Behavioral The patient and/or their independent sales representative will achieve their patient-specific goals related to [...] red to yellow. Pharmacy-Transplant Note - Davina Schuster [facility] - 02/03/2014 4:28 PM CDT Adult Kidney [...] review. Pharmacy will make recommendations as appropriate. Plan of Care - Martina Burciaga RN - 02/03/2014 3:08 PM CDT Problem: IP GENERAL POC-ADULT,OB,BEHAVIORAL FVCPM Goal: Individualization/Patient-Specific Goal (Adult,OB,Behavioral The patient and/or their independent sales representative will achieve their patient-specific goals related to the plan of care. The patient-specific goals include: 1. Pt will remain hemodynamically stable 2. Pt will have adequate urine output 3. Pt will be free of falls. RD Patient will verbalize understanding of 3 important aspects of post-transplant diet guidelines. PO intake >50% meals TID once diet adv. Report taken from [facility] on 6B; patient transferred to from 6B via wheelchair around 1500. Patientsettled into room, oriented to floor/room and call light. VS taken. Orders released. Continue ordersas written and notify MD with any concerns. Plan of Care - Sofie Christianson RN - 02/03/2014 2:59 PM CDT Problem: IP GENERAL POC-ADULT,OB,BEHAVIORAL FVCPM Goal: Plan of Care Review (Adult,OB,Behavioral) The patient and/or their independent sales representative will communicate an understanding of their plan [...] algorithm 2, 1 unit now. Pt still [id number] NC to maintain sats above 90 % [...] Individualization/Patient-Specific Goal (Adult,OB,Behavioral The patient and/or their independent sales representative will achieve their patient-specific goals related to [...] Intermittent sharp R lower abd pain. 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 R lower abd [...] 0200 made 20cc/hr, at 0300 made 30cc/hr. [place]/red tinged urine. MIVF @ 125/hr. VSS. HR 70s, BPs 100s-120s/60s. No new orders at this time. Will continue to monitor. Plan of Care - Tasia Andrade, RN - 02/03/2014 12:00 AM CDT Pt arrived to from PACU, s/p DDKT. A&O x3-4. VSS. [place]/red urine output. Small amt drainage on abd [...] to Type 2 Diabetes. [facility] Don[facility] BUSINESS QUALITY ASSURANCE ANALYST (expanded criteria donor) kidney transplant. After discussing [...] The UNOS number of the donor is [id number]. The crossmatch was done prospectively; and the [...] reconstruction. FACULTY SURGEON: Migel Merchant M.D., Ph.D. FELLOW/KENO WRITER/RUNNER SURGEON: Caitlin Owens MD fellow ANESTHESIA: None VERIFICATION: Prior to incision, I verified the donor ABO and recipient ABO. After the donor organ arrived to the operating room and prior to anastamosis, I visually verified that the donor identification, blood type, and other vital data were compatible with the recipient. FINDINGS: Donor type: BUSINESS QUALITY ASSURANCE ANALYST (expanded criteria donor) Organ: kidney Graft Injury: [...] Individualization/Patient-Specific Goal (Adult,OB,Behavioral The patient and/or their independent sales representative will achieve their patient-specific goals related to the plan of care. The patient-specific goals include: Outcome: No Change VSS on RA. BG 100. PIV placed. Pt took pre-op shower. Pt seen by cardiology and anesthesia. Report given to PACU nurse. Belongings with pt's friend. Transferred to pre-op area at 1630 for DDKT. Plan of Care - Molly Polanco RN - 02/02/2014 3:35 PM CDT Problem: IP GENERAL POC-ADULT,OB,BEHAVIORAL FVCPM Goal: Individualization/Patient-Specific Goal (Adult,OB,Behavioral The patient and/or their independent sales representative will achieve their patient-specific goals related to the plan of care. The patient-specific goals include: Pt admitted from home for pre-op DD kidney transplant. VSS. BG 115. Pt has left BKA with prosthesis.Pt prefers to keep valuables (wallet, cell phone, clothes) with him in room. Labs, EKG, and xray done. Consent signed with . UA/LOUIS sent. Pt needs pre-op shower and PIV [...] LARES - ROBERT POCT Performing Organization Address City/State/[facility] Code Phon e Number FV POINT OF [...] LARES - ROBERT POCT Performing Organization Address City/[facility]/ZIP Code Phon e Number FV POINT OF CARE TEST, GLUCOSE POINT OF CARE TEST, GLUCOSE Tacrolimus level (02/08/2014 6:42 AM CDT) Patholo gist Method Time Signature Tacrolimus Not Provided [facility] Last Dose [facility] Tacrolimus 10.0 5.0 - [facility] Level 15.0 ug/L [facility] Comment: Tacrolimus Reference Range Kidney Transplant [...] / / Volume Laterality 02/08/2014 6:42 AM 201 4 6:43 CDT AM CDT Omaira Chavez PA-C LAB - BLOOD ORDERABLES Performing Organization Address City/[facility]/ZIP Code Phon e Number [facility] [address] LABS (ABNORMAL) INR (02/08/2014 6:42 AM CDT) P athologist Signature INR 1.28 (H) 0.86 - 1.14 [facility] LABS Specimen Anatomical Collection Method Collection Time Receive d Time (Source) Location / / Volume Laterality Blood specimen 02/08/2014 6:42 AM 014 6:43 (specimen) CDT AM CDT Omaira Chavez PA-C LAB - BLOOD ORDERABLES Performing Organization Address City/[facility]/ZIP Code Phon e Number [facility] [address] LABS (ABNORMAL) Basic metabolic panel (02/08/2014 6:42 AM CDT) Patholo gist Method Time Signature Sodium 144 133 - 144 [facility] mmol/L [facility] Potassium 3.9 3.4 - 5.3 [facility] mmol/L [facility] Chloride 110 (H) 94 - 109 [facility] mmol/L [facility] Carbon Dioxide 25 20 - 32 [facility] mmol/L [facility] Anion Gap 8 6 - 17 [facility] mmol/L [facility] Glucose 144 (H) 60 - 99 [facility] mg/dL [facility] Urea Nitrogen 66 (H) 7 - 30 [facility] mg/dL [facility] Creatinine 2.38 (H) 0.66 - [facility] 1.25 mg/dL [facility] [place] [facility] GFR Estimate 28 (L) >60 [facility] mL/min/1.7 [place] m2 [facility] LABS GFR Estimate If 34 (L) >60 [facility] Black mL/min/1.7 [place] m2 [facility]AMP[facility] LABS Calcium 9.4 8.5 - 10.4 [facility] mg/dL [facility] Specimen Anatomical Collection Method Collection Time Receive d Time (Source) Location / / Volume Laterality Blood specimen 02/08/2014 6:42 AM 014 6:43 (specimen) CDT AM CDT Omaira Chavez PA-C LAB - BLOOD ORDERABLES Performing Organization Address City/State/ZIP Code Phon e Number [facility] [address] LABS Phosphorus (02/08/2014 6:42 AM CDT) P athologist Signature Phosphorus 2.5 2.5 - 4.5 [facility] mg/dL [place] [facility] Specimen Anatomical Collection Method Collection Time Receive d Time (Source) Location / / Volume Laterality Blood specimen 02/08/2014 6:42 AM 014 6:43 (specimen) CDT AM CDT Omaira Chavez PA-C LAB - BLOOD ORDERABLES Performing Organization Address City/State/ZIP Code Phon e Number [facility] [address] LABS Magnesium (02/08/2014 6:42 AM CDT) P athologist Signature Magnesium 2.2 1.6 - 2.3 [facility] mg/dL [place] [facility] Specimen Anatomical Collection Method Collection Time Receive d Time (Source) Location / / Volume Laterality Blood specimen 02/08/2014 6:42 AM 014 6:43 (specimen) CDT AM CDT Omaira Chavez PA-C LAB - BLOOD ORDERABLES Performing Organization Address City/[facility]/ZIP Code Phon e Number [facility] [address] LABS (ABNORMAL) CBC with platelets differential (02/08/2014 6:42 AM CDT) Patholo gist Method Time Signature WBC 4.8 4.0 - [facility] 11.0 [place] 10e9/L [place] [facility] RBC Count 2.56 (L) 4.4 - 5.9 [facility] 10e12/L [facility] Hemoglobin 7.8 (L) 13.3 - [facility] 17.7 g/dL [facility] Hematocrit 23.5 (L) 40.0 - [facility] 53.0 % [facility] MCV 92 78 - 100 [facility] fl [facility] MCH 30.5 26.5 - [facility] 33.0 pg [facility] MCHC 33.2 31.5 - [facility] 36.5 g/dL [facility] RDW 14.5 10.0 - [facility] 15.0 % [facility] Platelet Count 70 (L) 150 - 450 [facility] 10e9/L [facility] Diff Method Automated [facility] Method [facility] % Neutrophils 86.3 % [facility] % Lymphocytes 3.1 % [facility] % Monocytes 9.4 % [facility] % Eosinophils 1.0 % [facility] % Basophils 0.0 % [facility] % Immature 0.2 % [facility] Granulocytes [facility] Absolute 4.1 1.6 - 8.3 [facility] Neutrophil 10e9/L [facility] Absolute 0.2 (L) 0.8 - 5.3 [facility] Lymphocytes 10e9/L [facility] Absolute 0.5 0.0 - 1.3 [facility] Monocytes 10e9/L [facility] Absolute 0.1 0.0 - 0.7 [facility] Eosinophils 10e9/L [facility] Absolute 0.0 0.0 - 0.2 [facility] Basophils 10e9/L [facility] Abs Immature 0.0 0 - 0.4 [facility] Granulocytes 10e9/L [facility] Specimen Anatomical Collection Method Collection Time Receive d Time (Source) Location / / Volume Laterality Blood specimen 02/08/2014 6:42 AM 014 6:43 (specimen) CDT AM CDT Omaira Chavez PA-C LAB - BLOOD ORDERABLES Performing Organization Address City/State/ZIP Code Phon e Number [facility] [address] [place], [place] [id number] [place] [address] LABS (ABNORMAL) Glucose by meter (02/07/2014 10:18 PM CDT) P athologist Signature Glucose 233 (H) 60 - 99 POINT OF CARE mg/dL TEST, GLUCOSE Specimen Anatomical Collection Method Collection Time Receive d Time (Source) Location / / Volume Laterality 02/07/2014 10:18 02/07/2014 PM CDT 10:20 PM CDT Migel Merchant MD LAB - BEAKER POCT Performing Organization Address [facility] Phon e Number FV POINT OF CARE TEST, GLUCOSE POINT OF CARE TEST, GLUCOSE (ABNORMAL) Glucose by meter (02/07/2014 7:23 PM CDT) P athologist Signature Glucose 229 (H) 60 - 99 POINT OF CARE mg/dL TEST, GLUCOSE Specimen Anatomical Collection Method Collection Time Receive d Time (Source) Location / / Volume Laterality 02/07/2014 7:23 PM 4 7:25 CDT PM CDT Migel Merchant MD LAB - BEAJ POCT Performing Organization Address [facility] Phon e Number FV POINT OF CARE [...] LAB - BEAKER POCT Performing Organization Address [facility] Phon e Number FV POINT OF CARE [...] LAB - BEAJ POCT Performing Organization Address [facility] Phon e Number FV POINT OF CARE [...] Glucose by meter (02/07/2014 7:47 AM CDT) P athologist Signature Glucose 168 (H) 60 - 99 POINT OF CARE mg/dL TEST, GLUCOSE Specimen Anatomical Collection Method Collection Time Receive d Time (Source) Location / / Volume Laterality 02/07/2014 7:47 AM 4 7:50 CDT AM CDT Migel LARES - ROBERT POCT Performing Organization Address City/State/ZIP Code Phon e Number FV POINT OF CARE TEST, GLUCOSE POINT OF CARE TEST, GLUCOSE (ABNORMAL) Glucose by meter (02/07/2014 4:48 AM CDT) P athologist Signature Glucose 192 (H) 60 - 99 POINT OF CARE mg/dL TEST, GLUCOSE Specimen Anatomical Collection Method Collection Time Receive d Time (Source) Location / / Volume Laterality 02/07/2014 4:48 AM 4 4:50 CDT AM CDT Migel LARES - ROBERT POCT Performing Organization Address City/[facility]/ZIP Code Phon e Number FV POINT OF CARE TEST, GLUCOSE POINT OF CARE TEST, GLUCOSE (ABNORMAL) INR (02/07/2014 4:23 AM CDT) athologist Signature INR 1.25 (H) 0.86 - 1.14 [facility] LABS Specimen Anatomical Collection Method Collection Time Receive d Time (Source) Location / / Volume Laterality Blood specimen 02/07/2014 4:23 AM 014 4:24 (specimen) CDT AM CDT Omaira Chavez PA-C LAB - BLOOD ORDERABLES Performing Organization Address City/[facility]/ZIP Code Phon e Number [phone] [place] [address] LABS (ABNORMAL) Basic metabolic panel (02/07/2014 4:23 AM CDT) [facility] Method Time Signature Sodium 143 133 - 144 [facility] mmol/L [facility] Potassium 4.1 3.4 - 5.3 [facility] mmol/L [facility] Chloride 109 94 - 109 [facility] mmol/L [facility] Carbon Dioxide 24 20 - 32 [facility] mmol/L [facility] Anion Gap 10 6 - 17 [facility] mmol/L [facility] Glucose 185 (H) 60 - 99 [facility] mg/dL [facility] Urea Nitrogen 77 (H) 7 - 30 [facility] mg/dL [facility] Creatinine 3.02 (H) 0.66 - [facility] 1.25 mg/dL [facility] [place] [facility] GFR Estimate 21 (L) >60 [facility] mL/min/1.7 [place] m2 [facility] LABS GFR Estimate If 26 (L) >60 [facility] Black mL/min/1.7 [place] m2 [facility]AMP[facility] LABS Calcium 9.3 8.5 - 10.4 [facility] mg/dL [facility] Specimen Anatomical Collection Method Collection Time Receive d Time (Source) Location / / Volume Laterality Blood specimen 02/07/2014 4:23 AM 014 4:24 (specimen) CDT AM CDT Omaira Chavez PA-C LAB - BLOOD ORDERABLES Performing Organization Address City/State/ZIP Code Phon e Number [facility] [address] LABS Phosphorus (02/07/2014 4:23 AM CDT) P athologist Signature Phosphorus 3.5 2.5 - 4.5 [facility] mg/dL [place] [facility] Specimen Anatomical Collection Method Collection Time Receive d Time (Source) Location / / Volume Laterality Blood specimen 02/07/2014 4:23 AM 014 4:24 (specimen) CDT AM CDT Omaira Chavez PA-C LAB - BLOOD ORDERABLES Performing Organization Address City/State/ZIP Code Phon e Number [facility] [address] LABS Magnesium (02/07/2014 4:23 AM CDT) P athologist Signature Magnesium 2.1 1.6 - 2.3 [facility] mg/dL [place] [facility] Specimen Anatomical Collection Method Collection Time Receive d Time (Source) Location / / Volume Laterality Blood specimen 02/07/2014 4:23 AM 014 4:24 (specimen) CDT AM CDT Omaira Chavez PA-C LAB - BLOOD ORDERABLES Performing Organization Address City/State/ZIP Code Phon e Number [facility] [address] [place], [place] [phone] [place] [address] LABS (ABNORMAL) CBC with platelets differential (02/07/2014 4:23 AM CDT) [facility] gist Method Time Signature WBC 2.7 (L) 4.0 - [facility] 11.0 [place] 10e9/L [place] [facility] RBC Count 2.80 (L) 4.4 - 5.9 [facility] 10e12/L [facility] Hemoglobin 8.5 (L) 13.3 - [facility] 17.7 g/dL [facility] Hematocrit 25.8 (L) 40.0 - [facility] 53.0 % [facility] MCV 92 78 - 100 [facility] fl [facility] MCH 30.4 26.5 - [facility] 33.0 pg [facility] MCHC 32.9 31.5 - [facility] 36.5 g/dL [facility] RDW 14.5 10.0 - [facility] 15.0 % [facility] Platelet Count 77 (L) 150 - 450 [facility] 10e9/L [facility] Diff Method Automated [facility] Method [facility] % Neutrophils 87.5 % [facility] LABS % Lymphocytes 3.8 % [facility] % Monocytes 8.7 % [facility] % Eosinophils 0.0 % [facility] % Basophils 0.0 % [facility] % Immature 0.0 % [facility] Granulocytes [facility] Absolute 2.3 1.6 - 8.3 [facility] Neutrophil 10e9/L [facility] Absolute 0.1 (L) 0.8 - 5.3 [facility] Lymphocytes 10e9/L [facility] Absolute 0.2 0.0 - 1.3 [facility] Monocytes 10e9/L [facility] Absolute 0.0 0.0 - 0.7 [facility] Eosinophils 10e9/L [facility] Absolute 0.0 0.0 - 0.2 [facility] Basophils 10e9/L [facility] Abs Immature 0.0 0 - 0.4 [facility] Granulocytes 10e9/L [facility] Specimen Anatomical Collection Method Collection Time Receive d Time (Source) Location / / Volume Laterality Blood specimen 02/07/2014 4:23 AM 014 4:24 (specimen) CDT AM CDT Omaira Chavez PA-C LAB - BLOOD ORDERABLES Performing Organization Address City/State/ZIP Code Phon e Number [facility] [address] [place], [place] [phone] [place] [address] LABS (ABNORMAL) Hemoglobin A1c (02/07/2014 4:23 AM CDT) Analysis Performed At Patho logist Time Signature Hemoglobin A1C 6.1 (H) 4.3 - 6.0 [facility] Specimen Anatomical Collection Method Collection Time Receive d Time (Source) Location / / Volume Laterality Blood specimen 02/07/2014 4:23 AM 014 4:24 (specimen) CDT AM CDT Omaira Chavez PA-C LAB - BLOOD ORDERABLES Performing Organization Address City/State/ZIP Code Phon e Number [facility] [address] [place] [address] [facility] LABS (ABNORMAL) Glucose by meter (02/06/2014 10:06 PM CDT) P athologist Signature Glucose 247 (H) 60 - 99 POINT OF CARE mg/dL TEST, GLUCOSE Specimen Anatomical Collection Method Collection Time Receive d Time (Source) Location / / Volume Laterality 02/06/2014 10:06 02/06/2014 PM CDT 10:10 PM CDT Migel LARES - BEAKER POCT Performing Organization Address City/[facility]/ZIP Code Phon e Number FV POINT OF [...] PM 4 9:15 CDT PM CDT Migel JONES POCT Performing Organization Address City/[facility]/ZIP Code Phon e Number FV POINT OF [...] PM 4 5:36 CDT PM CDT Migel LARES - BEAJ POCT Performing Organization Address City/State/ZIP Code Phon e Number FV POINT OF CARE TEST, GLUCOSE POINT OF CARE TEST, GLUCOSE (ABNORMAL) Hemoglobin (02/06/2014 4:59 PM CDT) P athologist Signature Hemoglobin 8.8 (L) 13.3 - 17.7 [facility] g/dL [place] [facility] Specimen Anatomical Collection Method Collection Time Receive d Time (Source) Location / / Volume Laterality Blood specimen 02/06/2014 4:59 PM 014 5:12 (specimen) CDT PM CDT Omaira Chavez PA-C LAB - BLOOD ORDERABLES Performing Organization Address City/[facility]/ZIP Code Phon e Number [facility] [address] LABS (ABNORMAL) Glucose by meter (02/06/2014 12:01 PM CDT) P athologist Signature Glucose 181 (H) 60 - 99 POINT OF CARE mg/dL TEST, GLUCOSE Specimen Anatomical Collection Method Collection Time Receive d Time (Source) Location / / Volume Laterality 02/06/2014 12:01 02/06/2014 PM CDT 12:05 PM CDT Migel LARES - ROBERT POCT Performing Organization Address City/[facility]/ZIP Code Phon e Number FV POINT OF CARE TEST, GLUCOSE POINT OF CARE TEST, GLUCOSE (ABNORMAL) Partial thromboplastin time (02/06/2014 5:57 AM CDT) P athologist Signature PTT 154 (HH) 22 - 37 sec [facility] LABS Comment: Critical Value called to and read back Whitney Poon RN AT 0642. PW Specimen Anatomical Collection Method Collection Time Receive d Time (Source) Location / / Volume Laterality 02/06/2014 5:57 AM 4 6:03 CDT AM CDT Adeilne Diaz MD LAB - BLOOD ORDERABLES Performing Organization Address City/[facility]/ZIP Code Phon e Number [facility] [address] [place], [place] [phone] [place] [address] LABS Heparin Xa (10a) Level (02/06/2014 5:57 AM CDT) P athologist Signature Heparin 10A 0.92 IU/mL [facility] LABS Comment: Therapeutic Range: ?? UFH: [...] LAB - BLOOD ORDERABLES Performing Organization Address City/[facility]/ZIP Code Phon e Number [address] LABS (ABNORMAL) INR (02/06/2014 5:57 AM CDT) P athologist Signature INR 1.32 (H) 0.86 - 1.14 [facility] LABS Specimen Anatomical Collection Method Collection Time Receive d Time (Source) Location / / Volume Laterality Blood specimen 02/06/2014 5:57 AM 014 6:03 (specimen) CDT AM CDT Omaira Chavez PA-C LAB - BLOOD ORDERABLES Performing Organization Address City/[facility]/ZIP Code Phon e Number [address] LABS (ABNORMAL) Basic metabolic panel (02/06/2014 5:57 AM CDT) Patholo gist Method Time Signature Sodium 142 133 - 144 [facility] mmol/L [facility] Potassium 4.7 3.4 - 5.3 [facility] mmol/L [facility] Chloride 106 94 - 109 [facility] mmol/L [facility] Carbon Dioxide 28 20 - 32 [facility] mmol/L [facility] Anion Gap 8 6 - 17 [facility] mmol/L [facility] Glucose 196 (H) 60 - 99 [facility] mg/dL [facility] Urea Nitrogen 71 (H) 7 - 30 [facility] mg/dL [facility] Creatinine 3.96 (H) 0.66 - [facility] 1.25 mg/dL [facility] GFR Estimate 15 (L) >60 [facility] mL/min/1.7 [place] m2 [place] LABS GFR Estimate If 19 (L) >60 [facility] Black mL/min/1.[address] LABS Calcium 9.4 8.5 - 10.4 [facility] mg/dL [facility] Specimen Anatomical Collection Method Collection Time Receive d Time (Source) Location / / Volume Laterality Blood specimen 02/06/2014 5:57 AM 014 6:03 (specimen) CDT AM CDT Omaira Chavez PA-C LAB - BLOOD ORDERABLES Performing Organization Address City/[facility]/ZIP Code Phon e Number [address] LABS Phosphorus (02/06/2014 5:57 AM CDT) P athologist Signature Phosphorus 4.5 2.5 - 4.5 [facility] mg/dL [place] [facility] Specimen Anatomical Collection Method Collection Time Receive d Time (Source) Location / / Volume Laterality Blood specimen 02/06/2014 5:57 AM 014 6:03 (specimen) CDT AM CDT Omaira Chavez PA-C LAB - BLOOD ORDERABLES Performing Organization Address City/State/ZIP Code Phon e Number [facility] [address] LABS Magnesium (02/06/2014 5:57 AM CDT) P athologist Signature Magnesium 1.9 1.6 - 2.3 [facility] mg/dL [place] [facility] Specimen Anatomical Collection Method Collection Time Receive d Time (Source) Location / / Volume Laterality Blood specimen 02/06/2014 5:57 AM 014 6:03 (specimen) CDT AM CDT Omaira Chavez PA-C LAB - BLOOD ORDERABLES Performing Organization Address City/State/ZIP Code Phon e Number [address] [address] [place] [facility] LAB[facility] (ABNORMAL) CBC with platelets differential (02/06/2014 5:57 AM CDT) [facility] gist Method Time Signature WBC 5.1 4.0 - [facility] 11.0 [facility] 10e9/L [facility] LABS RBC Count 3.13 (L) 4.4 - 5.9 [facility] 10e12/L [facility]S Hemoglobin 9.6 (L) 13.3 - [facility] 17.7 g/dL [facility] Hematocrit 29.0 (L) 40.0 - [facility] 53.0 % [facility] MCV 93 78 - 100 [facility] fl [facility] MCH 30.7 26.5 - [facility] 33.0 pg [facility] MCHC 33.1 31.5 - [facility] 36.5 g/dL [facility] RDW 14.5 10.0 - [facility] 15.0 % [facility] Platelet Count 85 (L) 150 - 450 [facility] 10e9/L [facility] Diff Method Automated [facility] Method [facility] % Neutrophils 86.0 % [facility] % Lymphocytes 5.1 % [facility] % Monocytes 8.7 % [facility] % Eosinophils 0.0 % [facility] % Basophils 0.0 % [facility] % Immature 0.2 % [facility] Granulocytes [facility] Absolute 4.4 1.6 - 8.3 [facility] Neutrophil 10e9/L [facility] Absolute 0.3 (L) 0.8 - 5.3 [facility] Lymphocytes 10e9/L [facility] Absolute 0.4 0.0 - 1.3 [facility] Monocytes 10e9/L [facility] Absolute 0.0 0.0 - 0.7 [facility] Eosinophils 10e9/L [facility]S Absolute 0.0 0.0 - 0.2 [facility] Basophils 10e9/L [facility] Abs Immature 0.0 0 - 0.4 [facility] Granulocytes 10e9/L [facility] Specimen Anatomical Collection Method Collection Time Receive d Time (Source) Location / / Volume Laterality Blood specimen 02/06/2014 5:57 AM 014 6:03 (specimen) CDT AM CDT Omaira Chavez PA-C LAB - BLOOD ORDERABLES Performing Organization Address [facility]/ZIP Code Phon e Number [facility] [address] LABS (ABNORMAL) Lipid panel reflex to direct LDL (02/06/2014 5:57 AM CDT) P athologist Signature Cholesterol 126 <200 mg/dL [facility] Comment: LDL Cholesterol is the primary guide to therapy. The NCEP recommends further evaluation of: patients with cholesterol greater than 200 mg/dL if additional risk facto rs are present, cholesterol greater than 240 mg/dL, triglycerides greater than 1 50 mg/dL, or HDL less than 40 mg/dL. Triglycerides 100 0 - 150 mg/dL [facility] HDL Cholesterol 35 (L) >40 mg/dL [facility] LDL Cholesterol Calculated 71 0 - 129 mg/dL [facility] Comment: LDL Cholesterol is the primary guide to therapy: LDL-cholesterol goal in high risk patients is <100 mg/dL and in very high risk patients is <70 mg/dL. VLDL-Cholesterol 20 0 - 30 mg/dL [facility] Cholesterol/HDL Ratio 3.6 0.0 - 5.0 [facility] Specimen Anatomical Collection Method Collection Time Receive d Time (Source) Location / / Volume Laterality Blood specimen 02/06/2014 5:57 AM 2 014 6:03 (specimen) CDT AM CDT Omaira Chavez PA-C LAB - BLOOD ORDERABLES Performing Organization Address City/[facility]/ZIP Code Phon e Number [facility] [address] [place] [address] [facility] Tacrolimus level (02/06/2014 5:57 AM CDT) Patholo gist Method Time Signature Tacrolimus S Negative [facility] Last Dose [facility] Tacrolimus 12.7 5.0 - [facility] Level 15.0 ug/L [facility] Comment: Tacrolimus Reference Range Kidney Transplant [...] 014 6:03 (specimen) CDT AM CDT Adeline Diaz MD LAB - BLOOD ORDERABLES Performing Organization Address City/State/ZIP Code Phon e Number [facility] [address] [place] [address] [facility] LABS (ABNORMAL) Glucose by meter (02/06/2014 3:21 AM CDT) P athologist Signature Glucose 216 (H) 60 - 99 POINT OF CARE mg/dL TEST, GLUCOSE Specimen Anatomical Collection Method Collection Time Receive d Time (Source) Location / / Volume Laterality 02/06/2014 3:21 AM 4 3:25 CDT AM CDT Migel LARES - BEAKER POCT Performing Organization Address City/State/ZIP Code Phon e Number [facility] POINT OF CARE TEST, GLUCOSE POINT OF CARE TEST, GLUCOSE (ABNORMAL) Hemoglobin (02/06/2014 1:02 AM CDT) athologist Signature Hemoglobin 10.2 (L) 13.3 - [facility] 17.7 g/dL [place] [facility] Specimen Anatomical Collection Method Collection Time Receive d Time (Source) Location / / Volume Laterality Blood specimen 02/06/2014 1:02 AM 014 1:11 (specimen) CDT AM CDT Deysi Alicea MD LAB - BLOOD ORDERABLES Performing Organization Address City/State/ZIP Code Phon e Number [id number] [place] [address] LABS (ABNORMAL) Glucose by meter (02/05/2014 10:23 PM CDT) athologist Signature Glucose 254 (H) 60 - 99 POINT OF CARE mg/dL TEST, GLUCOSE Specimen Anatomical Collection Method Collection Time Receive d Time (Source) Location / / Volume Laterality 02/05/2014 10:23 02/05/2014 PM CDT 10:25 PM CDT Migel LARES - BEAJ POCT Performing Organization Address City/State/ZIP Code Phon e Number [facility] POINT OF CARE TEST, GLUCOSE POINT OF CARE TEST, GLUCOSE Heparin 10a Level (02/05/2014 7:32 PM CDT) athologist Signature Heparin 10A 0.64 IU/mL [facility] LABS Comment: Therapeutic Range: ?? UFH: [...] Organization Address City/State/ZIP Code Phon e Number [address] [address] [facility] LABS (ABNORMAL) Glucose by meter (02/05/2014 6:04 PM CDT) P athologist Signature Glucose 232 (H) 60 - 99 POINT OF CARE mg/dL TEST, GLUCOSE Specimen Anatomical Collection Method Collection Time Receive d Time (Source) Location / / Volume Laterality 02/05/2014 6:04 PM 4 6:10 CDT PM CDT Migel Merchant MD LAB - BEAKER POCT Performing Organization Address [facility] Phon e Number FV POINT OF CARE [...] LAB - BEAJ POCT Performing Organization Address City/[facility] Phon e Number [facility] POINT OF CARE TEST, GLUCOSE POINT OF CARE TEST, GLUCOSE (ABNORMAL) Glucose by meter (02/05/2014 2:09 PM CDT) P athologist Signature Glucose 160 (H) 60 - 99 POINT OF CARE mg/dL TEST, GLUCOSE Specimen Anatomical Collection Method Collection Time Receive d Time (Source) Location / / Volume Laterality 02/05/2014 2:09 PM 4 2:15 CDT PM CDT Migel LARES - BEAJ POCT Performing Organization Address [facility] Phon e Number [facility] POINT OF CARE [...] GLUCOSE (ABNORMAL) INR (02/05/2014 12:04 PM CDT) athologist Signature INR 1.24 (H) 0.86 - 1.14 [facility] LABS Specimen Anatomical Collection Method Collection Time Receive d Time (Source) Location / / Volume Laterality Blood specimen 02/05/2014 12:04 4 (specimen) PM CDT 12:10 PM CDT Teresa Wright [facility] LAB - BLOOD ORDERABLES Performing Organization Address City/State/ZIP Code Phon e Number [phone] [place] [address] LABS (ABNORMAL) CBC with platelets (02/05/2014 12:04 PM CDT) [facility] gist Method Time Signature WBC 7.4 4.0 - 11.0 [facility] 10e9/L [facility] RBC Count 3.31 (L) 4.4 - 5.9 [facility] 10e12/L [facility] Hemoglobin 10.3 (L) 13.3 - [facility] 17.7 g/dL [facility] Hematocrit 31.0 (L) 40.0 - [facility] 53.0 % [facility] MCV 94 78 - 100 [facility] fl [facility] MCH 31.1 26.5 - [facility] 33.0 pg [facility] MCHC 33.2 31.5 - [facility] 36.5 g/dL [facility] RDW 14.7 10.0 - [facility] 15.0 % [facility] Platelet Count 91 (L) 150 - 450 [facility] 10e9/L [facility] Specimen Anatomical Collection Method Collection Time Receive d Time (Source) Location / / Volume Laterality Blood specimen 02/05/2014 12:04 4 (specimen) PM CDT 12:10 PM CDT Omaira Chavez PA-C LAB - BLOOD ORDERABLES Performing Organization Address City/State/ZIP Code Phon e Number [facility] [address] [place] [address] [facility] LABS (ABNORMAL) Glucose by meter (02/05/2014 11:25 AM CDT) P athologist Signature Glucose 190 (H) 60 - 99 POINT OF CARE mg/dL TEST, GLUCOSE Specimen Anatomical Collection Method Collection Time Receive d Time (Source) Location / / Volume Laterality 02/05/2014 11:25 02/05/2014 AM CDT 11:30 AM CDT Migel Merchant MD LAB - BEAKER POCT Performing Organization Address City/[facility]/ZIP Code Phon e Number [facility] POINT OF CARE TEST, GLUCOSE POINT OF CARE TEST, GLUCOSE (ABNORMAL) Glucose by meter (02/05/2014 10:35 AM CDT) P athologist Signature Glucose 213 (H) 60 - 99 POINT OF CARE mg/dL TEST, GLUCOSE Specimen Anatomical Collection Method Collection Time Receive d Time (Source) Location / / Volume Laterality 02/05/2014 10:35 02/05/2014 AM CDT 10:39 AM CDT Migel LARES - BEAKER POCT Performing Organization Address City/State/ZIP Code Phon e Number [facility] POINT OF CARE TEST, GLUCOSE POINT OF CARE TEST, GLUCOSE (ABNORMAL) Glucose by meter (02/05/2014 9:43 AM CDT) P athologist Signature Glucose 150 (H) 60 - 99 POINT OF CARE mg/dL TEST, GLUCOSE Specimen Anatomical Collection Method Collection Time Receive d Time (Source) Location / / Volume Laterality 02/05/2014 9:43 AM 4 9:45 CDT AM CDT Migel LARES - BEAJ POCT Performing Organization Address City/[facility]/ZIP Code Phon e Number [facility] POINT OF CARE TEST, GLUCOSE POINT OF CARE TEST, GLUCOSE (ABNORMAL) Glucose by meter (02/05/2014 8:23 AM CDT) athologist Signature Glucose 141 (H) 60 - 99 POINT OF CARE mg/dL TEST, GLUCOSE Specimen Anatomical Collection Method Collection Time Receive d Time (Source) Location / / Volume Laterality 02/05/2014 8:23 AM 201 4 8:25 CDT AM CDT Migel Merchant MD LAB - BEAKER POCT Performing Organization Address City/State/ZIP Code Phon e Number [facility] POINT OF CARE TEST, GLUCOSE POINT OF CARE TEST, GLUCOSE (ABNORMAL) Basic metabolic panel (02/05/2014 7:02 AM CDT) [facility] gist Method Time Signature Sodium 143 133 - 144 [facility] mmol/L [facility] Potassium 4.3 3.4 - 5.3 [facility] mmol/L [facility] Chloride 107 94 - 109 [facility] mmol/L [facility] Carbon Dioxide 25 20 - 32 [facility] mmol/L [facility] [place] [facility] Anion Gap 10 6 - 17 [facility] mmol/L [facility] Glucose 123 (H) 60 - 99 [facility] mg/dL [facility] Urea Nitrogen 66 (H) 7 - 30 [facility] mg/dL [facility] Creatinine 4.77 (H) 0.66 - [facility] 1.25 mg/dL [facility] GFR Estimate 12 (L) >60 [facility] mL/min/1.7 [facility] m2 [facility] GFR Estimate If 15 (L) >60 [facility] Black mL/min/1.7 [facility]2 [facility] Calcium 9.4 8.5 - 10.4 [facility] mg/dL [facility] Specimen Anatomical Collection Method Collection Time Receive d Time (Source) Location / / Volume Laterality Blood specimen 02/05/2014 7:02 AM 2 014 7:05 (specimen) CDT AM CDT Omaira Chavez PA-C LAB - BLOOD ORDERABLES Performing Organization Address City/State/ZIP Code Phon e Number [phone] [place] [address] LABS (ABNORMAL) Phosphorus (02/05/2014 7:02 AM CDT) athologist Signature Phosphorus 5.7 (H) 2.5 - 4.5 [facility] mg/dL [facility]S Specimen Anatomical Collection Method Collection Time Receive d Time (Source) Location / / Volume Laterality Blood specimen 02/05/2014 7:02 AM 014 7:05 (specimen) CDT AM CDT Omaira Chavez PA-C LAB - BLOOD ORDERABLES Performing Organization Address City/[facility]/ZIP Code Phon e Number [facility] [address] [place], [place] [id number] [place] [address] LABS Magnesium (02/05/2014 7:02 AM CDT) P athologist Signature Magnesium 2.0 1.6 - 2.3 [facility] mg/dL [place] [facility] Specimen Anatomical Collection Method Collection Time Receive d Time (Source) Location / / Volume Laterality Blood specimen 02/05/2014 7:02 AM 014 7:05 (specimen) CDT AM CDT Omaira Chavez PA-C LAB - BLOOD ORDERABLES Performing Organization Address City/[facility]/ZIP Code Phon e Number [facility] [address] [place] [address] [facility] LABS (ABNORMAL) CBC with platelets differential (02/05/2014 7:02 AM CDT) Patholo gist Method Time Signature WBC 8.9 4.0 - [facility] 11.0 [facility] 10e9/L [place] [facility] RBC Count 3.20 (L) 4.4 - 5.9 [facility] 10e12/L [facility] Hemoglobin 9.7 (L) 13.3 - [facility] 17.7 g/dL [facility] Hematocrit 30.0 (L) 40.0 - [facility] 53.0 % [facility] MCV 94 78 - 100 [facility] fl [facility] MCH 30.3 26.5 - [facility] 33.0 pg [facility] MCHC 32.3 31.5 - [facility] 36.5 g/dL [facility] RDW 14.6 10.0 - [facility] 15.0 % [facility] Platelet Count 96 (L) 150 - 450 [facility] 10e9/L [facility] Diff Method Automated [facility] Method [facility] % Neutrophils 90.2 % [facility] % Lymphocytes 4.4 % [facility] % Monocytes 5.2 % [facility] % Eosinophils 0.0 % [facility] % Basophils 0.0 % [facility] % Immature 0.2 % [facility] Granulocytes [facility] [place] [facility] Absolute 8.1 1.6 - 8.3 [facility] Neutrophil 10e9/L [facility] Absolute 0.4 (L) 0.8 - 5.3 [facility] Lymphocytes 10e9/L [facility] Absolute 0.5 0.0 - 1.3 [facility] Monocytes 10e9/L [facility] Absolute 0.0 0.0 - 0.7 [facility] Eosinophils 10e9/L [facility] Absolute 0.0 0.0 - 0.2 [facility] Basophils 10e9/L [facility] Abs Immature 0.0 0 - 0.4 [facility] Granulocytes 10e9/L [facility] Specimen Anatomical Collection Method Collection Time Receive d Time (Source) Location / / Volume Laterality Blood specimen 02/05/2014 7:02 AM 014 7:05 (specimen) CDT AM CDT Omaira Chavez PA-C LAB - BLOOD ORDERABLES Performing Organization Address City/[facility] Phon e Number [address] LABS (ABNORMAL) Parathormone intact (02/05/2014 7:02 AM CDT) Patholo gist Method Time Signature Parathyroid 362 (H) 12 - 72 [facility] Hormone Intact pg/mL [facility] Specimen Anatomical Collection Method Collection Time Receive d Time (Source) Location / / Volume Laterality Blood specimen 02/05/2014 7:02 AM 014 7:05 (specimen) CDT AM CDT Sina Robison MD LAB - BLOOD ORDERABLES Performing Organization Address City/[facility]/ZIP Code Phon e Number [address] LABS (ABNORMAL) Ferritin (02/05/2014 7:02 AM CDT) P athologist Signature Ferritin 932 (H) 20 - 300 [facility] ng/mL [place] [facility] Specimen Anatomical Collection Method Collection Time Receive d Time (Source) Location / / Volume Laterality Blood specimen 02/05/2014 7:02 AM 014 7:05 (specimen) CDT AM CDT Sina Robison MD LAB - BLOOD ORDERABLES Performing Organization Address City/[facility]/ZIP Code Phon e Number [facility] [address] [place] [address] [facility] LABS (ABNORMAL) Iron and iron binding capacity (02/05/2014 7:02 AM CDT) Analysis Performed At Patho logist Time Signature Iron 119 35 - 180 [facility] ug/dL [facility] Iron Binding 207 (L) 240 - 430 [facility] Cap ug/dL [facility] Iron Saturation 58 (H) 15 - 46 % [facility] Index [facility] Specimen Anatomical Collection Method Collection Time Receive d Time (Source) Location / / Volume Laterality Blood specimen 02/05/2014 7:02 AM 014 7:05 (specimen) CDT AM CDT Sina Robison MD LAB - BLOOD ORDERABLES Performing Organization Address City/[facility]/ZIP Code Phon e Number [facility] [address] [place] [address] [facility] LABS (ABNORMAL) Glucose by meter (02/05/2014 6:59 AM CDT) athologist Signature Glucose 123 (H) 60 - 99 POINT OF CARE mg/dL TEST, GLUCOSE Specimen Anatomical Collection Method Collection Time Receive d Time (Source) Location / / Volume Laterality 02/05/2014 6:59 AM 4 7:05 CDT AM CDT Migel LARES - BEAJ POCT Performing Organization Address City/[facility]/ZIP Code Phon e Number [facility] POINT OF CARE TEST, GLUCOSE POINT OF CARE TEST, GLUCOSE (ABNORMAL) Glucose by meter (02/05/2014 6:01 AM CDT) P athologist Signature Glucose 132 (H) 60 - 99 POINT OF CARE mg/dL TEST, GLUCOSE Specimen Anatomical Collection Method Collection Time Receive d Time (Source) Location / / Volume Laterality 02/05/2014 6:01 AM 4 6:05 CDT AM CDT Migel LARES - BEAJ POCT Performing Organization Address City/[facility]/ZIP Code Phon e Number [facility]V POINT OF [...] LAB - BEAKER POCT Performing Organization Address [facility] Phon e Number [facility]V POINT OF CARE TEST, GLUCOSE POINT OF CARE TEST, GLUCOSE (ABNORMAL) Glucose by meter (02/05/2014 4:04 AM CDT) P athologist Signature Glucose 151 (H) 60 - 99 POINT OF CARE mg/dL TEST, GLUCOSE Specimen Anatomical Collection Method Collection Time Receive d Time (Source) Location / / Volume Laterality 02/05/2014 4:04 AM 4 4:10 CDT AM CDT Migel Merchant MD LAB - BEAJ POCT Performing Organization Address [facility] Phon e Number FV POINT OF CARE [...] LAB - BEAJ POCT Performing Organization Address [facility] Phon e Number FV POINT OF CARE [...] LAB - BEAJ POCT Performing Organization Address [facility] Phon e Number FV POINT OF CARE [...] AM CDT Migel Merchant MD LAB - ROBERT POCT Performing Organization Address [facility] Phon e Number FV POINT OF CARE TEST, GLUCOSE POINT OF CARE TEST, GLUCOSE (ABNORMAL) Glucose by meter (02/05/2014 12:09 AM CDT) P athologist Signature Glucose 136 (H) 60 - 99 POINT OF CARE mg/dL TEST, GLUCOSE Specimen Anatomical Collection Method Collection Time Receive d Time (Source) Location / / Volume Laterality 02/05/2014 12:09 02/05/2014 AM CDT 12:15 AM CDT Migel LARES - ROBERT POCT Performing Organization Address [facility] Phon e Number [facility] POINT OF CARE TEST, GLUCOSE POINT OF CARE TEST, GLUCOSE EKG 12-lead, complete (02/04/2014 11:09 PM CDT) [facility] gist Method Time Signature Interpretation ECG Click View RADIOLOGY Image link RESULTS to view waveform and result Specimen (Source) Anatomical Collection Method Collection Time Re ceived Time Location / / Volume Laterality 02/04/2014 11:09 PM CDT Chemo Carr MD ECG ORDERABLES Performing Organization Address [facility] Phon e Number RADIOLOGY RESULTS (ABNORMAL) Glucose by meter (02/04/2014 10:56 PM CDT) P athologist Signature Glucose 161 (H) 60 - 99 POINT OF CARE mg/dL TEST, GLUCOSE Specimen Anatomical Collection Method Collection Time Receive d Time (Source) Location / / Volume Laterality 02/04/2014 10:56 02/04/2014 PM CDT 11:00 PM CDT Migel LARES - ROBERT POCT Performing Organization Address [facility] Phon e Number [facility] POINT OF CARE TEST, GLUCOSE POINT OF CARE TEST, GLUCOSE (ABNORMAL) Glucose by meter (02/04/2014 9:58 PM CDT) P athologist Signature Glucose 177 (H) 60 - 99 POINT OF CARE mg/dL TEST, GLUCOSE Specimen Anatomical Collection Method Collection Time Receive d Time (Source) Location / / Volume Laterality 02/04/2014 9:58 PM 4 CDT 10:05 PM CDT Migel Merchant MD LAB - BEAKER POCT Performing Organization Address City/[facility]/ZIP Code Phon e Number [facility]V POINT OF CARE TEST, GLUCOSE POINT OF CARE TEST, GLUCOSE (ABNORMAL) Glucose by meter (02/04/2014 9:06 PM CDT) P athologist Signature Glucose 226 (H) 60 - 99 POINT OF CARE mg/dL TEST, GLUCOSE Specimen Anatomical Collection Method Collection Time Receive d Time (Source) Location / / Volume Laterality 02/04/2014 9:06 PM 4 9:10 CDT PM CDT Migel Merchant MD LAB - BEAJ POCT Performing Organization Address City/[facility]/ZIP Code Phon e Number [facility]V POINT OF CARE TEST, GLUCOSE POINT OF CARE TEST, GLUCOSE (ABNORMAL) Glucose by meter (02/04/2014 7:57 PM CDT) P athologist Signature Glucose 167 (H) 60 - 99 POINT OF CARE mg/dL TEST, GLUCOSE Specimen Anatomical Collection Method Collection Time Receive d Time (Source) Location / / Volume Laterality 02/04/2014 7:57 PM 4 8:00 CDT PM CDT Migel LARES - BEAKER POCT Performing Organization Address City/[facility]/ZIP Code Phon e Number [facility]V POINT OF CARE TEST, GLUCOSE POINT OF CARE TEST, GLUCOSE Troponin I (02/04/2014 7:10 PM CDT) P athologist Signature Troponin I 0.016 0.000 - [facility] 0.034 ug/L [place] [facility] Specimen Anatomical Collection Method Collection Time Receive d Time (Source) Location / / Volume Laterality Blood specimen 02/04/2014 7:10 PM 014 7:23 (specimen) CDT PM CDT Adeline Diaz MD LAB - BLOOD ORDERABLES Performing Organization Address City/State/ZIP Code Phon e Number [address] [address] [facility] LABS (ABNORMAL) Glucose by meter (02/04/2014 7:01 PM CDT) P athologist Signature Glucose 157 (H) 60 - 99 POINT OF CARE mg/dL TEST, GLUCOSE Specimen Anatomical Collection Method Collection Time Receive d Time (Source) Location / / Volume Laterality 02/04/2014 7:01 PM 4 7:05 CDT PM CDT Migel Merchant MD LAB - BEAKER POCT Performing Organization Address City/[facility]/ZIP Code Phon e Number FV POINT OF [...] LAB - BEAKER POCT Performing Organization Address City/[facility]/ZIP Code Phon e Number FV POINT OF [...] LAB - BEAJ POCT Performing Organization Address City/[facility]/ZIP Code Phon e Number FV POINT OF [...] PM 4 4:10 CDT PM CDT Migel LARES - ROBERT POCT [...] PM 4 2:45 CDT PM CDT Migel JONES POCT Performing [...] GLUCOSE Troponin I (02/04/2014 12:42 PM CDT) P athologist Signature Troponin I 0.025 0.000 - [facility] 0.034 ug/L [place] [facility] Specimen Anatomical Collection Method Collection Time Receive d Time (Source) Location / / Volume Laterality Blood specimen 02/04/2014 12:42 4 (specimen) PM CDT 12:45 PM CDT Adeline Diaz MD LAB - BLOOD ORDERABLES Performing Organization Address City/[facility]/ZIP Code Phon e Number [phone] [place] [address] LABS (ABNORMAL) Glucose by meter (02/04/2014 12:27 PM CDT) P athologist Signature Glucose 140 (H) 60 - 99 POINT OF CARE mg/dL TEST, GLUCOSE Specimen Anatomical Collection Method Collection Time Receive d Time (Source) Location / / Volume Laterality 02/04/2014 12:27 02/04/2014 PM CDT 12:30 PM CDT Migel Merchant MD LAB - BEAKER POCT Performing Organization Address City/[facility]/ZIP Code Phon e Number FV POINT OF [...] 02/04/2014 AM CDT 10:10 AM CDT Migel LARES - ROBERT POCT Performing Organization Address [facility] Phon e Number FV POINT OF CARE TEST, GLUCOSE POINT OF CARE TEST, GLUCOSE EKG 12-lead, complete (02/04/2014 9:21 AM CDT) Patholo gist Method Time Signature Interpretation ECG Click View RADIOLOGY Image link RESULTS to view waveform and result Specimen (Source) Anatomical Collection Method Collection Time Re ceived Time Location / / Volume Laterality 02/04/2014 9:21 AM CDT Omaira Chavez PA-C ECG ORDERABLES Performing Organization Address [facility] Phon e Number RADIOLOGY RESULTS (ABNORMAL) Glucose by meter (02/04/2014 9:02 AM CDT) P athologist Signature Glucose 203 (H) 60 - 99 POINT OF CARE mg/dL TEST, GLUCOSE Specimen Anatomical Collection Method Collection Time Receive d Time (Source) Location / / Volume Laterality 02/04/2014 9:02 AM 4 9:05 CDT AM CDT Migel LARES - ROBERT POCT Performing Organization Address [facility] Phon e Number FV POINT OF CARE TEST, GLUCOSE POINT OF CARE TEST, GLUCOSE (ABNORMAL) Glucose by meter (02/04/2014 8:09 AM CDT) P athologist Signature Glucose 204 (H) 60 - 99 POINT OF CARE mg/dL TEST, GLUCOSE Specimen Anatomical Collection Method Collection Time Receive d Time (Source) Location / / Volume Laterality 02/04/2014 8:09 AM 4 8:16 CDT AM CDT Migel LARES - ROBERT POCT Performing Organization Address [facility] Phon e Number FV POINT OF CARE TEST, GLUCOSE POINT OF CARE TEST, GLUCOSE (ABNORMAL) Glucose by meter (02/04/2014 7:08 AM CDT) P athologist Signature Glucose 176 (H) 60 - 99 POINT OF CARE mg/dL TEST, GLUCOSE Specimen Anatomical Collection Method Collection Time Receive d Time (Source) Location / / Volume Laterality 02/04/2014 7:08 AM 4 7:10 CDT AM CDT Migel Merchant MD LAB - BEAKER POCT Performing Organization Address City/[facility]/ZIP [facility] [place], [place] Phon e Number FV POINT OF CARE TEST, GLUCOSE POINT OF CARE TEST, GLUCOSE EKG 12-lead, complete (02/04/2014 7:03 AM CDT) [facility] gist Method Time Signature Interpretation ECG Click View RADIOLOGY Image link RESULTS to view waveform and result Specimen (Source) Anatomical Collection Method Collection Time Re ceived Time Location / / Volume Laterality 02/04/2014 7:03 AM CDT Caitlin Owens MD ECG ORDERABLES Performing Organization Address [facility] Code Phon e Number RADIOLOGY RESULTS (ABNORMAL) Glucose by meter (02/04/2014 6:09 AM CDT) athologist Signature Glucose 160 (H) 60 - 99 POINT OF CARE mg/dL TEST, GLUCOSE Specimen Anatomical Collection Method Collection Time Receive d Time (Source) Location / / Volume Laterality 02/04/2014 6:09 AM 4 6:15 CDT AM CDT Migel Merchant MD LAB - BEAKER POCT Performing Organization Address [facility] Phon e Number FV POINT OF CARE TEST, GLUCOSE POINT OF CARE TEST, GLUCOSE Troponin I (02/04/2014 5:49 AM CDT) athologist Signature Troponin I ES <0.012 0.000 - [facility] 0.034 ug/L CAMPUS LABS Specimen Anatomical Collection Method Collection Time Receive d Time (Source) Location / / Volume Laterality 02/04/2014 5:49 AM 4 5:51 CDT AM CDT Caitlin Owens MD LAB - BLOOD ORDERABLES Performing Organization Address City/[facility]/ZIP Code Phon e Number [id number] [place] [address] LABS (ABNORMAL) Basic metabolic panel (02/04/2014 5:49 AM CDT) Patholo gist Method Time Signature Sodium 142 133 - 144 [facility] mmol/L [facility] LABS Potassium 4.9 3.4 - 5.3 [facility] mmol/L [facility] LABS Chloride 107 94 - 109 [facility] mmol/L [facility] LABS Carbon Dioxide 23 20 - 32 [facility] mmol/L [facility] LABS Anion Gap 12 6 - 17 [facility] mmol/L [facility] LABS Glucose 151 (H) 60 - 99 [facility] mg/dL [facility] LABS Urea Nitrogen 57 (H) 7 - 30 [facility] mg/dL [facility] LABS Creatinine 5.94 (H) 0.66 - [facility] 1.25 mg/dL [facility] LABS GFR Estimate 10 (L) >60 [facility] mL/min/1.7 [place] m2 [place] LABS GFR Estimate If 12 (L) >60 [facility] Black mL/min/1.[address] LABS Calcium 9.4 8.5 - 10.4 [facility] mg/dL [facility] LABS Specimen Anatomical Collection Method Collection Time Receive d Time (Source) Location / / Volume Laterality Blood specimen 02/04/2014 5:49 AM 014 5:51 (specimen) CDT AM CDT Omaira Chavez PA-C LAB - BLOOD ORDERABLES Performing Organization Address City/[facility]/ZIP Code Phon e Number [address] LABS (ABNORMAL) Phosphorus (02/04/2014 5:49 AM CDT) P athologist Signature Phosphorus 6.3 (H) 2.5 - 4.5 [facility] mg/dL [place] LABS Specimen Anatomical Collection Method Collection Time Receive d Time (Source) Location / / Volume Laterality Blood specimen 02/04/2014 5:49 AM 014 5:51 (specimen) CDT AM CDT Omaira Chavez PA-C LAB - BLOOD ORDERABLES Performing Organization Address City/[facility]/ZIP Code Phon e Number [address] LABS Magnesium (02/04/2014 5:49 AM CDT) P athologist Signature Magnesium 2.1 1.6 - 2.3 [facility] mg/dL CAMPUS LABS Specimen Anatomical Collection Method Collection Time Receive d Time (Source) Location / / Volume Laterality Blood specimen 02/04/2014 5:49 AM 014 5:51 (specimen) CDT AM CDT Omaira Chavez PA-C LAB - BLOOD ORDERABLES Performing Organization Address City/State/ZIP Code Phon e Number [facility] [address] [place] [address] [facility] LABS (ABNORMAL) CBC with platelets differential (02/04/2014 5:49 AM CDT) [facility] gist Method Time Signature WBC 13.8 (H) 4.0 - [facility] 11.0 UN[facility]ITY 10e9/L [place] LABS RBC Count 3.10 (L) 4.4 - 5.9 [facility] 10e12/L [facility] LABS Hemoglobin 9.5 (L) 13.3 - [facility] 17.7 g/dL [facility] LABS Hematocrit 28.7 (L) 40.0 - [facility] 53.0 % [facility] LABS MCV 93 78 - 100 [facility] fl [facility] LABS MCH 30.6 26.5 - [facility] 33.0 pg [facility] LABS MCHC 33.1 31.5 - [facility] 36.5 g/dL [facility] LABS RDW 14.6 10.0 - [facility] 15.0 % [facility] LABS Platelet Count 91 (L) 150 - 450 [facility] 10e9/L [facility] LABS Diff Method Automated [facility] Method [facility] LABS % Neutrophils 95.8 % [facility] LABS % Lymphocytes 1.2 % [facility] LABS % Monocytes 2.8 % [facility] LABS % Eosinophils 0.0 % [facility] % Basophils 0.0 % [facility] LABS % Immature 0.2 % [facility] Granulocytes [facility] LABS Absolute 13.2 (H) 1.6 - 8.3 [facility] Neutrophil 10e9/L [facility] LABS Absolute 0.2 (L) 0.8 - 5.3 [facility] Lymphocytes 10e9/L [facility] LABS Absolute 0.4 0.0 - 1.3 [facility] Monocytes 10e9/L [facility] LABS Absolute 0.0 0.0 - 0.7 [facility] Eosinophils 10e9/L [facility] LABS Absolute 0.0 0.0 - 0.2 [facility] Basophils 10e9/L [facility] LABS Abs Immature 0.0 0 - 0.4 [facility] Granulocytes 10e9/L [facility] LABS Specimen Anatomical Collection Method Collection Time Receive d Time (Source) Location / / Volume Laterality Blood specimen 02/04/2014 5:49 AM 014 5:51 (specimen) CDT AM CDT Omaira Chavez PA-C LAB - BLOOD ORDERABLES Performing Organization Address City/State/ZIP Code Phon e Number [address] [address] [facility] LABS (ABNORMAL) Glucose by meter (02/04/2014 5:33 AM CDT) P athologist Signature Glucose 155 (H) 60 - 99 POINT OF CARE mg/dL TEST, GLUCOSE Specimen Anatomical Collection Method Collection Time Receive d Time (Source) Location / / Volume Laterality 02/04/2014 5:33 AM 4 5:35 CDT AM CDT Migel LARES - ROBERT POCT Performing Organization Address City/[facility]/ZIP Code Phon e Number FV POINT OF CARE TEST, GLUCOSE POINT OF CARE TEST, GLUCOSE (ABNORMAL) Glucose by meter (02/04/2014 3:54 AM CDT) P athologist Signature Glucose 129 (H) 60 - 99 POINT OF CARE mg/dL TEST, GLUCOSE Specimen Anatomical Collection Method Collection Time Receive d Time (Source) Location / / Volume Laterality 02/04/2014 3:54 AM 4 4:00 CDT AM CDT Migel LARES - BEAJ [...] AM 4 3:05 CDT AM CDT Migel LARES - ROBERT [...] AM 4 1:50 CDT AM CDT Migel Merchant MD LAB - BEAJ POCT Performing Organization Address City/[facility] Code Phon e Number FV POINT OF [...] LARES - ROBERT POCT Performing Organization Address City/[facility] Code Phon e Number FV POINT OF [...] LARES - ROBERT POCT Performing Organization Address City/[facility] Code Phon e Number FV POINT OF CARE TEST, GLUCOSE POINT OF CARE TEST, GLUCOSE Potassium (02/03/2014 10:16 PM CDT) P athologist Signature Potassium 4.8 3.4 - 5.3 [facility] mmol/L [place] LABS Specimen Anatomical Collection Method Collection Time Receive d Time (Source) Location / / Volume Laterality Blood specimen 02/03/2014 10:16 4 (specimen) PM CDT 10:19 PM CDT Caitlin Owens MD LAB - BLOOD ORDERABLES Performing Organization Address City/State/ZIP Code Phon e Number [address] LABS (ABNORMAL) Hemoglobin (02/03/2014 10:16 PM CDT) athologist Signature Hemoglobin 9.4 (L) 13.3 - 17.7 [facility] g/dL [place] LABS Specimen Anatomical Collection Method Collection Time Receive d Time (Source) Location / / Volume Laterality Blood specimen 02/03/2014 10:16 4 (specimen) PM CDT 10:19 PM CDT Caitlin Owens MD LAB - BLOOD ORDERABLES Performing Organization Address City/[facility]/ZIP Code Phon e Number [id number] [place] [address] LABS (ABNORMAL) Glucose by meter (02/03/2014 9:55 PM CDT) athologist Signature Glucose 167 (H) 60 - 99 POINT OF CARE mg/dL TEST, GLUCOSE Specimen Anatomical Collection Method Collection Time Receive d Time (Source) Location / / Volume Laterality 02/03/2014 9:55 PM 4 CDT 10:00 PM CDT Migel LARES - ROBERT POCT Performing Organization Address City/State/ZIP Code Phon e Number FV POINT OF CARE TEST, GLUCOSE POINT OF CARE TEST, GLUCOSE (ABNORMAL) Glucose by meter (02/03/2014 9:03 PM CDT) athologist Signature Glucose 140 (H) 60 - 99 POINT OF CARE mg/dL TEST, GLUCOSE Specimen Anatomical Collection Method Collection Time Receive d Time (Source) Location / / Volume Laterality 02/03/2014 9:03 PM 4 9:05 CDT PM CDT Migel JONES POCT Performing Organization Address City/[facility]/ZIP Code Phon e Number FV POINT OF CARE TEST, GLUCOSE POINT OF CARE TEST, GLUCOSE (ABNORMAL) Glucose by meter (02/03/2014 8:06 PM CDT) athologist Signature Glucose 128 (H) 60 - 99 POINT OF CARE mg/dL TEST, GLUCOSE Specimen Anatomical Collection Method Collection Time Receive d Time (Source) Location / / Volume Laterality 02/03/2014 8:06 PM 4 8:10 CDT PM CDT Migel Merchant MD LAB - BEAKER POCT Performing Organization Address City/[facility]/ZIP Code Phon e Number FV POINT OF CARE TEST, GLUCOSE POINT OF CARE TEST, GLUCOSE (ABNORMAL) Glucose by meter (02/03/2014 7:08 PM CDT) athologist Signature Glucose 111 (H) 60 - 99 POINT OF CARE mg/dL TEST, GLUCOSE Specimen Anatomical Collection Method Collection Time Receive d Time (Source) Location / / Volume Laterality 02/03/2014 7:08 PM 4 7:10 CDT PM CDT Migel Merchant MD LAB - BEAKER POCT Performing Organization Address [facility] Phon e Number FV POINT OF CARE TEST, GLUCOSE POINT OF CARE TEST, GLUCOSE Potassium (02/03/2014 6:52 PM CDT) athologist Signature Potassium 4.7 3.4 - 5.3 [facility] mmol/L [facility] LABS Specimen Anatomical Collection Method Collection Time Receive d Time (Source) Location / / Volume Laterality Blood specimen 02/03/2014 6:52 PM 014 6:53 (specimen) CDT PM CDT Caitlin Owens MD LAB - BLOOD ORDERABLES Performing Organization Address [facility]/ZIP Code Phon e Number [address] LABS (ABNORMAL) Hemoglobin (02/03/2014 6:52 PM CDT) athologist Signature Hemoglobin 9.6 (L) 13.3 - 17.7 [facility] g/dL [facility] LABS Specimen Anatomical Collection Method Collection Time Receive d Time (Source) Location / / Volume Laterality Blood specimen 02/03/2014 6:52 PM 014 6:53 (specimen) CDT PM CDT Caitlin Owens MD LAB - BLOOD ORDERABLES Performing Organization Address City/[facility] [place] [address] [facility] LABS (ABNORMAL) Glucose by meter (02/03/2014 6:00 PM CDT) P athologist Signature Glucose 140 [...] Glucose by meter (02/03/2014 5:09 PM CDT) P athologist Signature Glucose 154 (H) 60 - 99 POINT OF CARE mg/dL TEST, GLUCOSE Specimen Anatomical Collection Method Collection Time Receive d Time (Source) Location / / Volume Laterality 02/03/2014 5:09 PM 4 5:11 CDT PM CDT Migel Merchant MD LAB - BEAJ POCT Performing Organization Address City/[facility]/ZIP Code Phon e Number FV POINT OF [...] 2:45 CDT PM CDT Migel LARES - ROBERT POCT Performing Organization Address City/State/ZIP Code Phon e Number FV POINT OF CARE TEST, GLUCOSE POINT OF CARE TEST, GLUCOSE Potassium (02/03/2014 1:41 PM CDT) athologist Signature Potassium 4.7 3.4 - 5.3 [facility] mmol/L [facility] LABS Specimen Anatomical Collection Method Collection Time Receive d Time (Source) Location / / Volume Laterality Blood specimen 02/03/2014 1:41 PM 014 1:43 (specimen) CDT PM CDT Caitlin Owens MD LAB - BLOOD ORDERABLES Performing Organization Address City/[facility]/ZIP Code Phon e Number [address] LABS (ABNORMAL) Hemoglobin (02/03/2014 1:41 PM CDT) athologist Signature Hemoglobin 9.8 (L) 13.3 - 17.7 [facility] g/dL [place] LABS Specimen Anatomical Collection Method Collection Time Receive d Time (Source) Location / / Volume Laterality Blood specimen 02/03/2014 1:41 PM 014 1:43 (specimen) CDT PM CDT Caitlin Owens MD LAB - BLOOD ORDERABLES Performing Organization Address City/[facility]/ZIP Code Phon e Number [address] LABS (ABNORMAL) Glucose by meter (02/03/2014 1:10 PM CDT) athologist Signature Glucose 135 (H) 60 - [...] Glucose by meter (02/03/2014 11:56 AM CDT) athologist Signature Glucose 171 (H) 60 - 99 POINT OF CARE mg/dL TEST, GLUCOSE Specimen Anatomical Collection Method Collection Time Receive d Time (Source) Location / / Volume Laterality 02/03/2014 11:56 02/03/2014 AM CDT 12:00 PM CDT Migel Merchant MD LAB - BEAKER POCT Performing Organization Address City/[facility]/ZIP Code Phon e Number FV POINT OF CARE TEST, GLUCOSE POINT OF CARE TEST, GLUCOSE (ABNORMAL) Glucose by meter (02/03/2014 11:07 AM CDT) P athologist Signature Glucose 158 (H) 60 - 99 POINT OF CARE mg/dL TEST, GLUCOSE Specimen Anatomical Collection Method Collection Time Receive d Time (Source) Location / / Volume Laterality 02/03/2014 11:07 02/03/2014 AM CDT 11:10 AM CDT Migel Merchant MD LAB - BEAKER POCT Performing Organization Address City/[facility] Phon e Number FV POINT OF CARE TEST, GLUCOSE POINT OF CARE TEST, GLUCOSE Potassium (02/03/2014 10:11 AM CDT) athologist Signature Potassium 4.8 3.4 - 5.3 [facility] mmol/L [facility] LABS Specimen Anatomical Collection Method Collection Time Receive d Time (Source) Location / / Volume Laterality Blood specimen 02/03/2014 10:11 4 (specimen) AM CDT 10:23 AM CDT Caitlin Owens MD LAB - BLOOD ORDERABLES Performing Organization Address City/[facility] Code Phon e Number [address] LABS (ABNORMAL) Hemoglobin (02/03/2014 10:11 AM CDT) P athologist Signature Hemoglobin 9.7 (L) 13.3 - 17.7 [facility] g/dL [facility] LABS Specimen Anatomical Collection Method Collection Time Receive d Time (Source) Location / / Volume Laterality Blood specimen 02/03/2014 10:11 4 (specimen) AM CDT 10:23 AM CDT Caitlin Owens MD LAB - BLOOD ORDERABLES Performing Organization Address City/[facility] Phon e Number [address] LABS (ABNORMAL) Glucose by meter (02/03/2014 9:58 AM CDT) P athologist Signature Glucose 168 (H) 60 - 99 POINT OF CARE mg/dL TEST, GLUCOSE Specimen Anatomical Collection Method Collection Time Receive d Time (Source) Location / / Volume Laterality 02/03/2014 9:58 AM 4 CDT 10:00 AM CDT Migel Merchant MD LAB - BEAJ POCT Performing Organization Address City/[facility] Phon e Number FV POINT OF CARE TEST, GLUCOSE POINT OF CARE TEST, GLUCOSE (ABNORMAL) Glucose by meter (02/03/2014 9:13 AM CDT) P athologist Signature Glucose 169 (H) 60 - 99 POINT OF CARE mg/dL TEST, GLUCOSE Specimen Anatomical Collection Method Collection Time Receive d Time (Source) Location / / Volume Laterality 02/03/2014 9:13 AM 4 9:15 CDT AM CDT Migel LARES - ROBERT POCT Performing Organization Address City/[facility] Phon e Number FV POINT OF CARE [...] findings. AIRAM MONTANA MD Jose Aguirre MD IM US ORDERABLES (ABNORMAL) Glucose by meter (02/03/2014 8:06 AM CDT) P athologist Signature Glucose 176 (H) 60 - 99 POINT OF CARE mg/dL TEST, GLUCOSE Specimen Anatomical Collection Method Collection Time Receive d Time (Source) Location / / Volume Laterality 02/03/2014 8:06 AM 4 8:10 CDT AM CDT Migel LARES - [facility] POCT Performing Organization Address City/State/ZIP Code Phon e Number FV POINT OF CARE TEST, GLUCOSE POINT OF CARE TEST, GLUCOSE (ABNORMAL) Glucose by meter (02/03/2014 7:01 AM CDT) P athologist Signature Glucose 166 (H) 60 - 99 POINT OF CARE mg/dL TEST, GLUCOSE Specimen Anatomical Collection Method Collection Time Receive d Time (Source) Location / / Volume Laterality 02/03/2014 7:01 AM 4 7:05 CDT AM CDT Migel LARES - BEAJ POCT Performing Organization Address City/State/ZIP Code Phon e Number FV POINT OF CARE TEST, GLUCOSE POINT OF CARE TEST, GLUCOSE (ABNORMAL) Glucose by meter (02/03/2014 6:05 AM CDT) P athologist Signature Glucose 192 (H) 60 - 99 POINT OF CARE mg/dL TEST, GLUCOSE Specimen Anatomical Collection Method Collection Time Receive d Time (Source) Location / / Volume Laterality 02/03/2014 6:05 AM 4 6:10 CDT AM CDT Migel LARES - BEAJ POCT Performing Organization Address City/[facility]/ZIP Code Phon e Number FV POINT OF CARE TEST, GLUCOSE POINT OF CARE TEST, GLUCOSE (ABNORMAL) Basic metabolic panel (02/03/2014 5:38 AM CDT) Patholo gist Method Time Signature Sodium 141 133 - 144 [facility] mmol/L [facility] Potassium 4.4 3.4 - 5.3 [facility] mmol/L [facility] Chloride 105 94 - 109 [facility] mmol/L [facility] [place] [facility] Carbon Dioxide 20 20 - 32 [facility] mmol/L [facility] Anion Gap 15 6 - 17 [facility] mmol/L [facility] LABS Glucose 170 (H) 60 - 99 [facility] mg/dL [facility] [place] [facility] Urea Nitrogen 49 (H) 7 - 30 [facility] mg/dL [facility] [place] [facility] Creatinine 6.38 (H) 0.66 - [facility] 1.25 mg/dL [facility] [place] [facility] GFR Estimate 9 (L) >60 [facility] mL/min/1.7 [facility] m2 [facility] LABS GFR Estimate If 11 (L) >60 [facility] Black mL/min/1.7 [facility] m2 [facility] LABS Calcium 9.1 8.5 - 10.4 [facility] mg/dL [facility] LABS Specimen Anatomical Collection Method Collection Time Receive d Time (Source) Location / / Volume Laterality Blood specimen 02/03/2014 5:38 AM 014 5:40 (specimen) CDT AM CDT Omaira Chavez PA-C LAB - BLOOD ORDERABLES Performing Organization Address City/State/ZIP Code Phon e Number [facility] [address] [place] [address] [facility] LABS (ABNORMAL) Phosphorus (02/03/2014 5:38 AM CDT) P athologist Signature Phosphorus 4.7 (H) 2.5 - 4.5 [facility] mg/dL [place] [facility] Specimen Anatomical Collection Method Collection Time Receive d Time (Source) Location / / Volume Laterality Blood specimen 02/03/2014 5:38 AM 014 5:40 (specimen) CDT AM CDT Omaira Chavez PA-C LAB - BLOOD ORDERABLES Performing Organization Address City/State/ZIP Code Phon e Number [facility] [address] [place] [address] [facility] LABS Magnesium (02/03/2014 5:38 AM CDT) athologist Signature Magnesium 2.0 1.6 - 2.3 [facility] mg/dL [place] [facility] Specimen Anatomical Collection Method Collection Time Receive d Time (Source) Location / / Volume Laterality Blood specimen 02/03/2014 5:38 AM 014 5:40 (specimen) CDT AM CDT Omaira Chavez PA-C LAB - BLOOD ORDERABLES Performing Organization Address City/State/ZIP Code Phon e Number [facility] [address] [place] [address] [facility] LABS (ABNORMAL) CBC with platelets differential (02/03/2014 5:38 AM CDT) Patholo gist Method Time Signature WBC 13.2 (H) 4.0 - [facility] 11.0 [place] 10e9/L [place] LABS RBC Count 3.20 (L) 4.4 - 5.9 [facility] 10e12/L [facility] LABS Hemoglobin 9.9 (L) 13.3 - [facility] 17.7 g/dL [facility] LABS Hematocrit 30.2 (L) 40.0 - [facility] 53.0 % [facility] LABS MCV 94 78 - 100 [facility] fl [facility] LABS MCH 30.9 26.5 - [facility] 33.0 pg [facility]S MCHC 32.8 31.5 - [facility] 36.5 g/dL [facility] LABS RDW 14.5 10.0 - [facility] 15.0 % [facility] Platelet Count 108 (L) 150 - 450 [facility] 10e9/L [facility] LABS Diff Method Automated [facility] Method [facility] LABS % Neutrophils 96.9 % [facility] [place] [facility] % Lymphocytes 0.7 % [facility] % Monocytes 2.1 % [facility] [place] [facility] % Eosinophils 0.0 % [facility] % Basophils 0.1 % [facility] % Immature 0.2 % [facility] Granulocytes [facility] [place] [facility] Absolute 12.8 (H) 1.6 - 8.3 [facility] Neutrophil 10e9/L [facility] LABS Absolute 0.1 (L) 0.8 - 5.3 [facility] Lymphocytes 10e9/L [facility] Absolute 0.3 0.0 - 1.3 [facility] Monocytes 10e9/L [facility] Absolute 0.0 0.0 - 0.7 [facility] Eosinophils 10e9/L [facility] Absolute 0.0 0.0 - 0.2 [facility] Basophils 10e9/L [facility] Abs Immature 0.0 0 - 0.4 [facility] Granulocytes 10e9/L [facility] LABS Specimen Anatomical Collection Method Collection Time Receive d Time (Source) Location / / Volume Laterality Blood specimen 02/03/2014 5:38 AM 014 5:40 (specimen) CDT AM CDT Omaira Chavez PA-C LAB - BLOOD ORDERABLES Performing Organization Address City/[facility]/ZIP Code Phon e Number [address] LABS (ABNORMAL) Hemoglobin A1c (02/03/2014 5:38 AM CDT) Analysis Performed At Patho logist Time Signature Hemoglobin A1C 6.2 (H) 4.3 - 6.0 [facility] % [facility] LABS Specimen Anatomical Collection Method Collection Time Receive d Time (Source) Location / / Volume Laterality Blood specimen 02/03/2014 5:38 AM 014 5:40 (specimen) CDT AM CDT Caitlin Owens MD LAB - BLOOD ORDERABLES Performing Organization Address City/[facility]/ZIP Code Phon e Number [address] LABS (ABNORMAL) Glucose by meter (02/03/2014 5:05 AM CDT) P athologist Signature Glucose 176 (H) 60 - 99 POINT OF CARE mg/dL TEST, GLUCOSE Specimen Anatomical Collection Method Collection Time Receive d Time (Source) Location / / Volume Laterality 02/03/2014 5:05 AM 4 5:10 CDT AM CDT Migel Merchant MD LAB - BEAJ POCT Performing Organization Address [facility] Phon e Number FV POINT OF CARE [...] LAB - BEAJ POCT Performing Organization Address [facility] Phon e Number FV POINT OF CARE [...] LAB - BEAJ POCT Performing Organization Address [facility] Code Phon e Number FV POINT OF CARE TEST, GLUCOSE POINT OF CARE TEST, GLUCOSE (ABNORMAL) Glucose by meter (02/03/2014 2:00 AM CDT) P athologist Signature Glucose 205 (H) 60 - 99 POINT OF CARE mg/dL TEST, GLUCOSE Specimen Anatomical Collection Method Collection Time Receive d Time (Source) Location / / Volume Laterality 02/03/2014 2:00 AM 4 2:05 CDT AM CDT Migel LARES - BEAJ POCT Performing Organization Address [facility] Phon e Number FV POINT OF CARE TEST, GLUCOSE POINT OF CARE TEST, GLUCOSE Potassium (02/03/2014 1:18 AM CDT) athologist Signature Potassium 4.7 3.4 - 5.3 [facility] mmol/L [place] [facility]S Specimen Anatomical Collection Method Collection Time Receive d Time (Source) Location / / Volume Laterality Blood specimen 02/03/2014 1:18 AM 014 1:20 (specimen) CDT AM CDT Caitlin Owens MD LAB - BLOOD ORDERABLES Performing Organization Address City/[facility]/ZIP Code Phon e Number [facility] [address] LABS (ABNORMAL) Hemoglobin (02/03/2014 1:18 AM CDT) athologist Signature Hemoglobin 9.8 (L) 13.3 - 17.7 [facility] g/dL [place] [facility] Specimen Anatomical Collection Method Collection Time Receive d Time (Source) Location / / Volume Laterality Blood specimen 02/03/2014 1:18 AM 014 1:20 (specimen) CDT AM CDT Caitlin Owens MD LAB - BLOOD ORDERABLES Performing Organization Address City/State/ZIP Code Phon e Number [address] LABS (ABNORMAL) Glucose by meter (02/03/2014 1:16 AM CDT) athologist Signature Glucose 186 (H) 60 - [...] Glucose by meter (02/03/2014 12:09 AM CDT) athologist Signature Glucose 169 (H) 60 - 99 POINT OF CARE mg/dL TEST, GLUCOSE Specimen Anatomical Collection Method Collection Time Receive d Time (Source) Location / / Volume Laterality 02/03/2014 12:09 02/03/2014 AM CDT 12:15 AM CDT Migel Merchant MD [facility] POCT Performing Organization Address City/State/ZIP Code Phon [...] Glucose by meter (02/02/2014 10:50 PM CDT) athologist Signature Glucose 136 (H) 60 - [...] TEST, GLUCOSE Phosphorus (02/02/2014 10:50 PM CDT) athologist Signature Phosphorus 4.4 2.5 - 4.5 [facility] mg/dL CAMPUS LABS Specimen Anatomical Collection Method Collection Time Receive d Time (Source) Location / / Volume Laterality Blood specimen 02/02/2014 10:50 4 (specimen) PM CDT 11:06 PM CDT Caitlin Owens MD LAB - BLOOD ORDERABLES Performing Organization Address City/State/ZIP Code Phon e Number [facility] [address] LABS Magnesium (02/02/2014 10:50 PM CDT) athologist Signature Magnesium 1.8 1.6 - 2.3 [facility] mg/dL [place] [facility] Specimen Anatomical Collection Method Collection Time Receive d Time (Source) Location / / Volume Laterality Blood specimen 02/02/2014 10:50 4 (specimen) PM CDT 11:06 PM CDT Caitlin Owens MD LAB - BLOOD ORDERABLES Performing Organization Address City/[facility]/ZIP Code Phon e Number [facility] [address] LABS (ABNORMAL) Basic metabolic panel (02/02/2014 10:50 PM CDT) [facility] gist Method Time Signature Sodium 138 133 - 144 [facility] mmol/L [facility] LABS Potassium 4.5 3.4 - 5.3 [facility] mmol/L [facility] LABS Chloride 104 94 - 109 [facility] mmol/L [facility] LABS Carbon Dioxide 25 20 - 32 [facility] mmol/L [facility] LABS Anion Gap 10 6 - 17 [facility] mmol/L [facility] LABS Glucose 134 (H) 60 - 99 [facility] mg/dL [facility] LABS Urea Nitrogen 44 (H) 7 - 30 [facility] mg/dL [facility] LABS Creatinine 6.14 (H) 0.66 - [facility] 1.25 mg/dL [facility] LABS GFR Estimate 9 (L) >60 [facility] mL/min/1.7 [place] m2 CAMPUS LABS GFR Estimate If 11 (L) >60 [facility] Black mL/min/1.7 [place] [address] CAMPUS LABS Calcium 8.8 8.5 - 10.4 [facility] mg/dL [facility] LABS Specimen Anatomical Collection Method Collection Time Receive d Time (Source) Location / / Volume Laterality Blood specimen 02/02/2014 10:50 4 (specimen) PM CDT 11:06 PM CDT Caitlin Owens MD LAB - BLOOD ORDERABLES Performing Organization Address City/State/ZIP Code Phon e Number [id number] [place] [address] LABS (ABNORMAL) CBC with platelets differential (02/02/2014 10:50 PM CDT) [facility] gist Method Time Signature WBC 8.2 4.0 - [facility] 11.0 [facility]ITY 10e9/L [place] [facility] RBC Count 3.34 (L) 4.4 - 5.9 [facility] 10e12/L [facility] LABS Hemoglobin 10.3 (L) 13.3 - [facility] 17.7 g/dL [facility] LABS Hematocrit 30.9 (L) 40.0 - [facility] 53.0 % [facility] LABS MCV 93 78 - 100 [facility] fl [facility] LABS MCH 30.8 26.5 - [facility] 33.0 pg [facility] LABS MCHC 33.3 31.5 - [facility] 36.5 g/dL [facility] LABS RDW 14.3 10.0 - [facility] 15.0 % [facility] LABS Platelet Count 79 (L) 150 - 450 [facility] 10e9/L [facility] LABS Diff Method Automated [facility] Method [facility] LABS % Neutrophils 96.7 % [facility] LABS % Lymphocytes 1.6 % [facility] LABS % Monocytes 1.2 % [facility] LABS % Eosinophils 0.4 % [facility] % Basophils 0.0 % [facility] LABS % Immature 0.1 % [facility] Granulocytes [facility] LABS Absolute 7.9 1.6 - 8.3 [facility] Neutrophil 10e9/L [facility] LABS Absolute 0.1 (L) 0.8 - 5.3 [facility] Lymphocytes 10e9/L [facility] LABS Absolute 0.1 0.0 - 1.3 [facility] Monocytes 10e9/L [facility] LABS Absolute 0.0 0.0 - 0.7 [facility] Eosinophils 10e9/L [facility] LABS Absolute 0.0 0.0 - 0.2 [facility] Basophils 10e9/L [facility] LABS Abs Immature 0.0 0 - 0.4 [facility] Granulocytes 10e9/L [facility] LABS Specimen Anatomical Collection Method Collection Time Receive d Time (Source) Location / / Volume Laterality Blood specimen 02/02/2014 10:50 4 (specimen) PM CDT 11:06 PM CDT Caitlin Owens MD LAB - BLOOD ORDERABLES Performing Organization Address City/State/ZIP Code Phon e Number [facility] [address] [place], [place] [id number] [place] [address] LABS (ABNORMAL) VENOUS PANEL (02/02/2014 10:09 PM CDT) [facility] gist Method Time Signature Ph Venous 7.31 (L) 7.32 - [facility] 7.43 pH [facility] LABS PCO2 Venous 52 (H) 40 - 50 [facility] mm Hg [facility] LABS PO2 Venous 34 25 - 47 [facility] mm Hg [facility] LABS Bicarbonate 26 21 - 28 [facility] Venous mmol/L [facility] LABS Base Deficit 0.3 mmol/L [facility] Venous [facility] LABS Comment: Reference range: -7.7 to 1.9 FIO2 45 [facility] LABS Sodium 137 133 - 144 mmol/L [facility] LABS Potassium 4.4 3.4 - 5.3 mmol/L [facility] LABS Hemoglobin 10.0 (L) 13.3 - 17.7 g/dL [facility] LABS Glucose 116 (H) 60 - 99 mg/dL [facility] LABS Calcium Ionized Whole Blood 4.8 4.4 - 5.2 mg/dL [facility] LABS Specimen Anatomical Collection Method Collection Time Receive d Time (Source) Location / / Volume Laterality 02/02/2014 10:09 02/02/2014 PM CDT 10:14 PM CDT Migel Merchant MD LAB - BLOOD ORDERABLES Performing Organization Address City/State/ZIP Code Phon e Number [address] [address] [facility] LABS (ABNORMAL) Glucose by meter (02/02/2014 9:24 [...] (ABNORMAL) VENOUS PANEL (02/02/2014 6:40 PM CDT) P athologist Signature Ph Venous 7.35 7.32 - [facility] 7.43 pH [facility] LABS PCO2 Venous 50 40 - 50 mm [facility] Hg [facility] LABS PO2 Venous 46 25 - 47 mm [facility] Hg [facility] LABS Bicarbonate 28 21 - 28 [facility] Venous mmol/L [facility] LABS Base Excess 1.8 mmol/L [facility] Venous [facility] LABS Comment: Reference range: -7.7 to 1.9 FIO2 100% [facility] LABS Sodium 141 133 - 144 mmol/L [facility] LABS Potassium 3.7 3.4 - 5.3 mmol/L [facility] LABS Hemoglobin 10.3 (L) 13.3 - 17.7 g/dL [facility] LABS Glucose 76 60 - 99 mg/dL [facility] LABS Calcium Ionized Whole Blood 4.8 4.4 - 5.2 mg/dL [facility] LABS Specimen Anatomical Collection Method Collection Time Receive d Time (Source) Location / / Volume Laterality 02/02/2014 6:40 PM 4 6:44 CDT PM CDT Migel Merchant MD LAB - BLOOD ORDERABLES Performing Organization Address City/[facility]/ZIP Code Phon e Number [facility] [address] [place] [address] [facility] LABS Glucose by meter (02/02/2014 5:11 PM CDT) P athologist Signature Glucose 89 60 - 99 POINT OF CARE mg/dL TEST, GLUCOSE Specimen Anatomical Collection Method Collection Time Receive d Time (Source) Location / / Volume Laterality 02/02/2014 5:11 PM 4 5:15 CDT PM CDT Migel LARES - BEAJ POCT Performing Organization Address City/[facility]/ZIP Code Phon e Number FV POINT OF CARE TEST, GLUCOSE POINT OF CARE TEST, GLUCOSE (ABNORMAL) Glucose by meter (02/02/2014 3:45 PM CDT) P athologist Signature Glucose 100 (H) 60 - 99 POINT OF CARE mg/dL TEST, GLUCOSE Specimen Anatomical Collection Method Collection Time Receive d Time (Source) Location / / Volume Laterality 02/02/2014 3:45 PM 4 3:50 CDT PM CDT Migel LARES - BEAJ POCT Performing Organization Address City/[facility] Code Phon e Number FV POINT OF [...] MARYELLEN Blood component (02/02/2014 2:07 PM CDT) Immediately Method Time Signature Unit Number [id number] [facility] LABS Blood Red Blood [facility] Component Cells [facility] Leukocyte [place] [facility] Reduced Division 00 [facility] LABS Status of No longer [place] Unit available [facility] 02/06/2014 HOSPITAL LAB 0300 Specimen Anatomical Collection Method Collection Time Receive d Time (Source) Location / / Volume Laterality 02/02/2014 2:07 PM 4 2:10 CDT PM CDT Caitlin Owens MD LABORATORY Performing Organization Address City/State/ZIP Code Phon e Number [place] [address] [address] [place], [place] [address] [facility] LABS [facility] LAB Blood component (02/02/2014 2:07 PM CDT) Immediately Method Time Signature Unit Number [id number] [facility] LABS Blood Red Blood [facility] Component Cells [facility] LABS Reduced Division 00 [facility] Number [facility] LABS Status of No longer [place] Unit available [facility] 02/06/2014 HOSPITAL LAB 0300 Specimen Anatomical Collection Method Collection Time Receive d Time (Source) Location / / Volume Laterality 02/02/2014 2:07 PM 201 4 2:10 CDT PM CDT Caitlin Owens MD LABORATORY Performing Organization Address City/State/ZIP Code Phon e Number M [facility] [address] [place], [place] [address] HOSPITAL [facility] LABS [facility] LAB ABO/Rh type and screen (02/02/2014 2:07 PM CDT) Patholo gist Method Time Signature Units Ordered 2 [facility] LABS ABO A [facility] LABS RH(D) Pos [facility] LABS Antibody Neg [facility] Screen [facility] LABS Test Valid [facility] Only At [facility] BLOOD BANK Center,[facility] LAB w Hospital Specimen 02/05/2014 [facility] BLOOD BANK LAB Crossmatch Red Blood [facility] Cells [facility] LABS Specimen Anatomical Collection Method Collection Time Receive d Time (Source) Location / / Volume Laterality Blood specimen 02/02/2014 2:07 PM 014 2:10 (specimen) CDT PM CDT Caitlin Owens MD LAB - BLOOD BANK TEST ORDER Performing Organization Address City/State/ZIP Code Phon e Number [facility] [address] [place] [address] [facility] LABS [facility] BLOOD BANK LAB (ABNORMAL) Lipid Profile (02/02/2014 2:07 PM CDT) P athologist Signature Cholesterol 135 <200 mg/dL [facility] LABS Comment: LDL Cholesterol is the primary guide to therapy. The NCEP recommends further evaluation of: patients with cholesterol greater than 200 mg/dL if additional risk facto rs are present, cholesterol greater than 240 mg/dL, triglycerides greater than 1 50 mg/dL, or HDL less than 40 mg/dL. Triglycerides 124 0 - 150 mg/dL [facility] LABS HDL Cholesterol 34 (L) >40 mg/dL [facility] LABS LDL Cholesterol Calculated 77 0 - 129 mg/dL [facility] LABS Comment: LDL Cholesterol is the primary guide to therapy: LDL-cholesterol goal in high risk patients is <100 mg/dL and in very high risk patients is <70 mg/dL. VLDL-Cholesterol 25 0 - 30 mg/dL [facility] Cholesterol/HDL Ratio 4.0 0.0 - 5.0 [facility] Specimen Anatomical Collection Method Collection Time Receive d Time (Source) Location / / Volume Laterality Blood specimen 02/02/2014 2:07 PM 014 2:08 (specimen) CDT PM CDT Caitlin Owens MD LAB - BLOOD ORDERABLES Performing Organization Address City/[facility]/ZIP Code Phon e Number [facility] [address] LABS (ABNORMAL) Hemoglobin A1c (02/02/2014 2:07 PM CDT) Analysis Performed At Patho logist Time Signature Hemoglobin A1C 6.2 (H) 4.3 - 6.0 [facility] LAB[facility] Specimen Anatomical Collection Method Collection Time Receive d Time (Source) Location / / Volume Laterality Blood specimen 02/02/2014 2:07 PM 014 2:08 (specimen) CDT PM CDT Caitlin Owens MD LAB - BLOOD ORDERABLES Performing Organization Address City/[facility]/ZIP Code Phon e Number [facility] [address] [place], [place] [id number] [place] [address] LABS Hepatitis C antibody (02/02/2014 2:07 PM CDT) Patholo gist Method Time Signature Hepatitis C Negative NEG [facility] Antibody MICROBIOLOGY Specimen Anatomical Collection Method Collection Time Receive d Time (Source) Location / / Volume Laterality Blood specimen 02/02/2014 2:07 PM 014 2:08 (specimen) CDT PM CDT Caitlin Owens MD LAB - BLOOD ORDERABLES Performing Organization Address City/State/ZIP Code Phon e Number [facility] 500 [place], [place] [phone] [place] [address] MICROBIOLOGY Hepatitis B core antibody IgM (02/02/2014 2:07 PM CDT) Patholo gist Method Time Signature Hepatitis B Negative NEG [facility] Core IgM MICROBIOLOGY Specimen Anatomical Collection Method Collection Time Receive d Time (Source) Location / / Volume Laterality Blood specimen 02/02/2014 2:07 PM 014 2:08 (specimen) CDT PM CDT Caitlin Owens MD LAB - BLOOD ORDERABLES Performing Organization Address City/State/ZIP Code Phon e Number [facility] [address] [place], [place] [phone] [place] [address] MICROBIOLOGY Hepatitis B surface antigen (02/02/2014 2:07 PM CDT) [facility] Signature Hep B Surface Negative NEG [facility] Agn MICROBIOLOGY Specimen Anatomical Collection Method Collection Time Receive d Time (Source) Location / / Volume Laterality Blood specimen 02/02/2014 2:07 PM 2 014 2:08 (specimen) CDT PM CDT Caitlin Owens MD LAB - BLOOD ORDERABLES Performing Organization Address City/State/ZIP Code Phon e Number [facility] [address] [place], [place] [id number] [place] [address] MICROBIOLOGY HIV Antigen Antibody Combo (02/02/2014 2:07 PM CDT) [facility] Signature HIV Antigen Nonreactive NR [facility] Antibody HIV-1 p24 Ag & HIV-1/HIV-2 Ab Not Detected [facility] LABS Specimen Anatomical Collection Method Collection Time Receive d Time (Source) Location / / Volume Laterality Blood specimen 02/02/2014 2:07 PM 2 014 2:08 (specimen) CDT PM CDT Caitlin Owens MD LAB - BLOOD ORDERABLES Performing Organization Address City/[facility]/ZIP Code Phon e Number [facility] [address] LABS EBV Capsid Antibody IgM (02/02/2014 2:07 PM CDT) [facility] Signature EBV Capsid <0.2 0.0 - 0.8 [facility] Antibody IgM No detectable antibody. AI [facility] [place] LABS Specimen Anatomical Collection Method Collection Time Receive d Time (Source) Location / / Volume Laterality Blood specimen 02/02/2014 2:07 PM 2 014 2:08 (specimen) CDT PM CDT Caitlin Owens MD LAB - BLOOD ORDERABLES Performing Organization Address City/[facility]/ZIP Code Phon e Number [facility] [address] [place], [place] [phone] [place] [address] LABS (ABNORMAL) EBV Capsid Antibody IgG (02/02/2014 2:07 PM CDT) Patholo gist Method Time Signature EBV Capsid >8.0 0.0 - 0.8 [facility] Antibody IgG Positive, suggests recent or past exposure [facility] (H) [place] LABS Specimen Anatomical Collection Method Collection Time Receive d Time (Source) Location / / Volume Laterality Blood specimen 02/02/2014 2:07 PM 014 2:08 (specimen) CDT PM CDT Caitlin Owens MD LAB - BLOOD ORDERABLES Performing Organization Address City/[facility]/ZIP Code Phon e Number [facility] [address] LABS CMV antibody IgM (02/02/2014 2:07 PM CDT) Analysis Performed At Patho logist Time Signature CMV Antibody <0.2 0.0 - 0.8 [facility] IgM Negative [facility] LABS Specimen Anatomical Collection Method Collection Time Receive d Time (Source) Location / / Volume Laterality Blood specimen 02/02/2014 2:07 PM 014 2:08 (specimen) CDT PM CDT Caitlin Owens MD LAB - BLOOD ORDERABLES Performing Organization Address City/[facility]/ZIP Code Phon e Number [facility] [address] LABS (ABNORMAL) CMV Antibody IgG (02/02/2014 2:07 PM CDT) P athologist Signature CMV Antibody 7.8 (H) 0.0 - 0.8 [facility] IgG [facility] LABS Comment: Positive Specimen Anatomical Collection Method Collection Time Receive d Time (Source) Location / / Volume Laterality Blood specimen 02/02/2014 2:07 PM 014 2:08 (specimen) CDT PM CDT Caitlin Owens MD LAB - BLOOD ORDERABLES Performing Organization Address City/[facility]/ZIP Code Phon e Number [address] LABS (ABNORMAL) Comprehensive metabolic panel (02/02/2014 2:07 PM CDT) Patholo gist Method Time Signature Sodium 141 133 - 144 [facility] mmol/L [facility] LABS Potassium 4.2 3.4 - 5.3 [facility] mmol/L [facility] LABS Chloride 101 94 - 109 [facility] mmol/L [facility] LABS Carbon Dioxide 26 20 - 32 [facility] mmol/L [facility] LABS Anion Gap 13 6 - 17 [facility] mmol/L [facility] LABS Glucose 112 (H) 60 - 99 [facility] mg/dL [facility] LABS Urea Nitrogen 42 (H) 7 - 30 [facility] mg/dL [facility] LABS Creatinine 6.03 (H) 0.66 - [facility] 1.25 [place] mg/dL CAMPUS LABS GFR Estimate 9 (L) >60 [facility] mL/min/1. [place] 7m2 [place] LABS GFR Estimate If 11 (L) >60 [facility] Black mL/min/1. [place] [address] CAMPUS LABS Calcium 9.9 8.5 - [facility] 10.4 [place] mg/dL CAMPUS LABS Bilirubin Total 0.7 0.2 - 1.3 [facility] mg/dL [facility] LABS Albumin 4.2 3.3 - 4.9 [facility] g/dL [facility] LABS Protein Total 7.5 6.8 - 8.8 [facility] g/dL [facility] LABS Alkaline 88 40 - 150 [facility] Phosphatase U/L [facility] LABS ALT 33 0 - 70 [facility] U/L [facility] LABS AST 18 0 - 45 [facility] U/L [facility] LABS Specimen Anatomical Collection Method Collection Time Receive d Time (Source) Location / / Volume Laterality Blood specimen 02/02/2014 2:07 PM 014 2:08 (specimen) CDT PM CDT Caitlin Owens MD LAB - BLOOD ORDERABLES Performing Organization Address City/State/ZIP Code Phon e Number [phone] [place] [address] LABS (ABNORMAL) CBC with platelets differential (02/02/2014 2:07 PM CDT) [facility] gist Method Time Signature WBC 6.3 4.0 - [facility] 11.0 [place] 10e9/L [place] LABS RBC Count 3.71 (L) 4.4 - 5.9 [facility] 10e12/L [facility] LABS Hemoglobin 11.5 (L) 13.3 - [facility] 17.7 g/dL [facility] LABS Hematocrit 33.7 (L) 40.0 - [facility] 53.0 % [facility] [place] LABS MCV 91 78 - 100 [facility] fl [facility] LABS MCH 31.0 26.5 - [facility] 33.0 pg [facility] [place] LABS MCHC 34.1 31.5 - [facility] 36.5 g/dL [facility] LABS RDW 14.0 10.0 - [facility] 15.0 % [facility] LABS Platelet Count 110 (L) 150 - 450 [facility] 10e9/L [facility] LABS Diff Method Automated [facility] Method [facility] LABS % Neutrophils 52.4 % [facility] LABS % Lymphocytes 32.1 % [facility] LABS % Monocytes 7.9 % [facility] % Eosinophils 7.1 % [facility] % Basophils 0.3 % [facility] % Immature 0.2 % [facility] Granulocytes [facility] LABS Absolute 3.3 1.6 - 8.3 [facility] Neutrophil 10e9/L [facility] LABS Absolute 2.0 0.8 - 5.3 [facility] Lymphocytes 10e9/L [facility] LABS Absolute 0.5 0.0 - 1.3 [facility] Monocytes 10e9/L [facility] LABS Absolute 0.5 0.0 - 0.7 [facility] Eosinophils 10e9/L [facility] LABS Absolute 0.0 0.0 - 0.2 [facility] Basophils 10e9/L [facility] LABS Abs Immature 0.0 0 - 0.4 [facility] Granulocytes 10e9/L [facility] LABS Specimen Anatomical Collection Method Collection Time Receive d Time (Source) Location / / Volume Laterality Blood specimen 02/02/2014 2:07 PM 014 2:08 (specimen) CDT PM CDT Caitlin Owens MD LAB - BLOOD ORDERABLES Performing Organization Address City/[facility] Code Phon e Number [address] LABS Creatinine urine calculation only (02/02/2014 2:00 PM CDT) P athologist Signature Creatinine 88 mg/dL [facility] Urine [place] LABS Specimen Anatomical Collection Method Collection Time Receive d Time (Source) Location / / Volume Laterality 02/02/2014 2:00 PM 4 2:12 CDT PM CDT Caitlin Owens MD LAB - URINE ORDERABLES Performing Organization Address City/[facility] Phon e Number [address] LABS (ABNORMAL) Urine culture (02/02/2014 2:00 PM CDT) Component Value Ref Test Analysis Performed At Patholo gist Range Method Time Signature Specimen Midstream Urine [facility] Description [facility] LABS Special Specimen received [facility] Requests in preservative MICROBIOLOGY Culture Micro <10,000 colonies/mL Gram pos itive cocci No further identification Susceptibility [facility] testing not routinely done IN CROBIOLOGY <10,000 colonies/mL Strain 2 Gram positive [...] MICRO GENERAL ORDERABL ES Performing Organization Address City/[facility] Code Phon e Number [address] LABS [facility] MICROBIOLOGY (ABNORMAL) Protein random urine (02/02/2014 2:00 PM CDT) [facility] Method [place] Signature Protein Random 1.89 g/L [facility] Urine [facility] LABS Protein Total 2.15 (H) 0 - 0.2 [facility] Urine g/gr g/g Cr [facility] LABS Specimen Anatomical Collection Method Collection Time Receive d Time (Source) Location / / Volume Laterality Urine specimen URINE SPECIMEN 02/02/2014 2:00 PM 02/02 2:12 (specimen) OBTAINED BY CLEAN CDT PM CDT CATCH PROCEDURE / Unknown Caitlin Owens MD LAB - URINE ORDERABLES Performing Organization Address City/[facility] Phon e Number [address] LABS (ABNORMAL) Routine UA with microscopic (02/02/2014 2:00 PM CDT) [facility] Method Time Signature Color Urine Light Yellow [facility] LABS Appearance Urine Clear [facility] LABS Glucose Urine 70 (A) NEG mg/dL [facility] LABS Bilirubin Urine Negative NEG [facility] LABS Ketones Urine Negative NEG mg/dL [facility] LABS Specific [place] 1.008 1.003 - [facility] Urine 1.035 [facility] LABS Blood Urine Negative NEG [facility] LABS pH Urine 8.0 (H) 5.0 - 7.0 [facility] pH [facility] [place] LABS Protein Albumin 100 (A) NEG mg/dL [facility] Urine [facility] LABS Urobilinogen Normal 0.0 - 2.0 [facility] mg/dL mg/dL [facility] LABS Nitrite Urine Negative NEG [facility] LABS Leukocyte Negative NEG [facility] Esterase Urine [facility] LABS Source Clean catch [facility] urine [facility] LABS WBC Urine 1 0 - 2 [facility] /HPF [facility] LABS RBC Urine 0 0 - 2 [facility] /HPF [facility] LABS Squamous <1 0 - 1 [facility] Epithelial /HPF /HPF [place] Urine [place] LABS Specimen Anatomical Collection Method Collection Time Receive d Time (Source) Location / / Volume Laterality Urine specimen URINE SPECIMEN 02/02/2014 2:00 PM 02/02 2:12 (specimen) OBTAINED BY CLEAN CDT PM CDT CATCH PROCEDURE / Unknown Caitlin Owens MD LAB - URINE ORDERABLES Performing Organization Address City/State/ZIP Code Phon e Number [id number] [place] [address] LABS (ABNORMAL) Glucose by meter (02/02/2014 1:59 PM CDT) athologist Signature Glucose 115 (H) 60 - 99 POINT OF CARE mg/dL TEST, GLUCOSE Specimen Anatomical Collection Method Collection Time Receive d Time (Source) Location / / Volume Laterality 02/02/2014 1:59 PM 4 2:05 CDT PM CDT Migel Merchant MD LAB - BEAKER POCT Performing Organization Address City/[facility]/ZIP Code Phon e Number FV POINT OF CARE TEST, GLUCOSE POINT OF CARE TEST, GLUCOSE EKG 12-lead, tracing only (02/02/2014 1:58 PM CDT) [facility] gist Method Time Signature Interpretation ECG Click View RADIOLOGY Image link RESULTS to view waveform and result Specimen (Source) Anatomical Collection Method Collection Time Re ceived Time Location / / Volume Laterality 02/02/2014 1:58 PM CDT Caitlin Owens MD ECG ORDERABLES Performing Organization Address City/State/ZIP Code Phon e Number RADIOLOGY RESULTS documented in this encounter Visit Diagnoses Not on filedocumented in this encounter Admitting Diagnoses Diagnosis S/P kidney transplant Kidney replaced by transplant documented in this encounter Administered Medications Inactive Administered Medications - up to 3 most recent administrations Medication Order MAR Action Action Date Dose Rate Site oxidized cellulose Given 02/02/2014 9:08 PM 1 pad Operative (SUGICEL NU-KNIT) 4X8 CDT Sit e/Surgical Site inch pad PRN, Starting on 02/02/14 at 2108, Intra-procedure documented in this encounter Active and Recently Administered Medications Times are shown in CDT. Scheduled Medication Order 02/06/2014 02/07/2014 02/08/2014 acetaminophen (TYLENOL) tablet 650 mg (COMPLETED) 1342 (Given - Provider: Ganesh Covarrubias RN) 650 mg, Oral, ONCE, Tue02/06/14 at 1400, For 1 dose, 30 [...] - Provider: Viry Kessler RN) Mouth/Throat, ONCE, Tue02/06/14 at 0930, For 1 dose, When verbally ordered by the prescriber. [place] throat with 1-4 sprays 5 minutes prior to procedure in the [facility] procedure room , Cardiac Intra-procedure clotrimazole (MYCELEX) lozenge 10 mg 1205 (Given - Pro vider: Ganesh Covarrubias RN)1335 (Given - Provider: Ganesh Covarrubias RN)1952 (Given - Provider: Annmarie Colby, BOGDAN) 0837 (Given - Provider: Lashaun Braswell, RN)1347 (Given - Provider: Lashaun Braswell, RN)2004 (Given - Provider: Annmarie Colby, BOGDAN) 0809 (Given - Provider: Amanda Hernandez, BOGDAN)1400 [...] Lashaun Braswell RN) 20 mg, Intravenous, ONCE, Renetta 02/07/14 at 1100, For 1 dose insulin aspart (NovoLOG) injection (RAPID ACTING) (CAN CELED) 1206 (Given - Provider: Ganesh Covarrubias RN)1840 (Given - Provider: Lashaun Braswell RN) 0844 (Given - Provider: Lashaun Braswell, BOGDAN)1343 (Given - Provider: Lashaun Braswell, BOGDAN)1924 (Given - Provider: Annmarie Colby RN) 0902 (Given - Provider: Amanda Hernandez, BOGDAN)1406 (Given - Provider: Amanda Hernandez RN - Comment: BG 193) 1-7 Units, Subcutaneous, [...] 2206 (Given - Provider: Annmarie Colby RN) 2223 (Given - Provider: Annmarie Colby RN) 1-5 [...] (CANCELED) 1342 (Gi isael - Provider: Ganesh Covarrubias RN) Subcutaneous, DAILY WITH LUNCH, First do se on 02/03/14 at 1200, DOSE: 1 units per CARBOHYDRATE [...] DAILY WITH SUPPER, First d ose on 02/03/14 at 1700, DOSE: 1 units per CARBOHYDRATE [...] Ganesh Covarrubias RN)1951 (Given - Provider: Annmarie Colby RN) 0836 (Given - Provider: Lashaun Braswell RN)2004 (Given - Provider: Annmarie Colby RN) 0809 (Given - Provider: Amanda Hernandez, BOGDAN) 25 mg, Oral, 2 TIMES DAILY, First dose o n 02/04/14 at 2000, For Adults, Hold if HR < 60 or SBP <100. mycophenolate (CELLCEPT-BRAND NAME) capsule 1,000 mg 1 204 (Given - Provider: Ganesh Covarrubias RN)1758 (Given - Provider: Lashaun Braswell RN) 0838 (Given - Provider: Lashaun Braswell RN)1820 (Given - Provider: Lashaun Braswell RN) 0808 (Given - Provider: Amanda Hernandez, BOGDAN) 1,000 mg, Oral, 2 TIMES DAILY., First do se on 02/03/14 at 0800, Check if BLOOD LEVEL is needed BEFORE administering dose. This order is specifically written for CELLCEPT (BRAND NAME) capsules. pantoprazole (PROTONIX) EC tablet 40 mg 1202 (Given - Provid er: Ganesh Covarrubias RN) 0835 (Given - Provider: Lashaun Braswell RN) 0809 (Given - Provider: Amanda Hernandez, BOGDAN) 40 mg, Oral, DAILY, First dose on 02/03/14 at 0800, DO NOT CR [facility]. polyethylene glycol (MIRALAX/GLYCOLAX) packet 17 g (CA NCELED) 1204 (Given - Provider: Ganesh Covarrubias RN) 0837 (Given - Provider: Lashaun Braswell RN) 0810 (Not Given - Provider: Amanda Hernandez, BOGDAN - Reason: Patient/family refused) 17 g, Oral, DAILY, First dose on 01/20 at 0800, 1 Packet = 17 grams. Mixed prescribed dose in 8 ounces of water. predniSONE (DELTASONE) tablet 30 mg (COMPLETED) 1342 ( Given - Provider: Ganesh Covarrubias RN) 0836 (Given - Provider: Lashaun Braswell, BOGDAN) 30 mg, Oral, DAILY, First dose on Tue02/06/14 at 1400, For 2 day s senna-docusate (SENOKOT-S;PERICOLACE) 8.6-50 MG per ta blet 2 tablet 1203 (Given - Provider: Ganesh Covarrubias RN)1952 (Given - Provider: Annmarie Colby RN) 0836 (Given - Provider: Lashaun Braswell, BOGDAN)1999 (Not Given - Provider: Annmarie Colby RN [...] Covarrubias RN) 0836 (Given - Provider: Lashaun Braswell RN) 0809 (Give n - Provider: Amanda Hernandez, BOGDAN) 100 mg, Oral, DAILY, First dose on 02/03/14 at 1515 sodium chloride (PF) 0.9% PF flush 10 mL (CANCELED) 01 00 (Not Given - Provider: Farideh Hodgson RN - Reason: IV Infusing)1207 (Given - Provider: Ganesh Covarrubias RN)1622 (Given - Provider: Lashaun Braswell, BOGDAN)1656 (Given - Provider: Odalis Seaman)2209 (Given - Provider: Annmarie Colby, BOGDAN) 0803 (Canceled Entry - Provider: Lashaun Braswell RN - Comment: unknown if given by previous nurse.)0838 (Given - Provider: Lashaun Braswell, BOGDAN)1820 (Given - Provider: Lashaun Braswell, RN) 0130 (Given - Provider: Annmarie Colby [...] Braswell RN) 0809 (Given - Provider: Amanda Hernandez RN) 1 tablet, Oral, DAILY, First dose on Tue02/07/14 at 1200, Indications: PCP prophylaxis tacrolimus (Prograf BRAND) capsule 1.5 mg 2028 (Not Gi isael - Provider: Lynne Gatica [facility] - Reason: Other - Comment: Dose already [...] 450 mg, Oral, DAILY, First dose on Renetta at 1200, With Normal WBC Count. Pharmacy to adjust per Renal Dosing Protocol., Indications: Cytomegalovirus Disease Prophylaxis warfarin (COUMADIN) tablet 5 mg (COMPLETED) 1820 (Given - Provider: Lashaun Braswell RN) 5 mg, Oral, ONCE AT 6PM, Renetta 02/07/14 at 1800, For 1 dose warfarin (COUMADIN) [...] (CANCELED) 0446 (Given - Provider: Annmarie Colby, BOGDAN)1212 (Given - Provider: Amanda Hernandez, BOGDAN) 4 mg, Intravenous, EVERY 6 HOURS PRN, na usea, vomiting, for 2 Minutes, Starting 02/03/14 at 0055, Try prochlorperazine (COMPAZINE) first and if nausea is not resolved in 15-30 minutes, then administer ondansetron (ZOFRAN). oxyCODONE (ROXICODONE) immediate release tablet 5 mg 0 015 (Given - Provider: Farideh Hodgson, BOGDAN)1345 (Given - Provider: Ganesh Covarrubias RN)1955 (Given - Provider: Annmarie Colby, BOGDAN) 5 mg, Oral, EVERY 4 HOURS PRN, moderate to severe pain, Starting Tu02/05/14 at 0750 sodium chloride (PF) 0.9% PF flush 10-20 mL (CANCELED) 0100 (Given - Provider: Dai (Wollan) Hour) 0420 (Given - Provider: Angie Velazco MLT) 0643 (Given - Provider: Dee Fields) 10-20 mL, Intravenous, EVERY 1 HOUR PRN, line flush, post meds or blood draw, Starting 02/03/14 at 0055, to flush CVC - Open Ended (Tunneled and Non- Tunneled). 10 mL post IV meds; 20 mL post blood draw. documented in this encounter Care Teams Forensic Pathologist Relationship Specialty Start Date End Date Momo Forbes PCP - General [place] [facility] Practice 01/02/14 [facility] [address] [place], [place] [id number] Ingrid Santana, RN Registered Nurse Transplant 02/10/12 10/01/15 documented as of this encounter
--- OUTSIDE RECORDS SUMMARY | 2022-03-30 18:52 | XMS_ITS | Encounter Summary ---
:1950 Author Organization [place] Address [address] [place] [address] Care Team Providers Name Role Phone Toña [...] nts HLA LUKASZ CLASS I SINGLE Routine 04/16/2013 Resul ts for this ANTIGEN procedure are i n the results section . documented in this encounter Results HLA Lukasz Class I Single Antigen (04/16/2013) [facility] gist Method Time Signature SA1 Test Single [...] Volume Laterality 04/16/2013 04/17/2013 3:36 PM CDT Jesus Cardenas MD LAB - IMMUNOLOGY ORDERABLES Performing Organization Address City/State/ZIP Code Phon e Number [facility] Immunology/Histocompatabil [place], [place] [address] [facility] [address], Room 3-580 HISTOTRAC documented in this encounter Visit Diagnoses Not on filedocumented in this encounter Care Teams Naval Gunfire Liaison Officer Relationship Specialty Start Date End Date Toña Jones MD PCP - General Nephrology 11/25/11 01/01/14 Ingrid Santana RN Registered Nurse Transplant 02/10/12 10/01/15 documented as of this encounter
--- OUTSIDE RECORDS SUMMARY | 2022-03-30 18:52 | XMS_ITS | Encounter Summary ---
:1950 Author Organization [place] Address [address] [place] [address] Care Team Providers Name Role Phone Ingrid Santana RN Unavailable Momo Forbes Primary Care Provider Encounter Details Date Type Department Care Team Description 01/21/2014 Results Only LABORATORY RESULTS Mingo Dangelo MD [address] [facility] [address] [place] [address] (Wo rk) Social History Tobacco [...] nts HLA LUKASZ CLASS I SINGLE Routine 01/21/2014 Resul ts for this ANTIGEN procedure are i n the results section . documented in this encounter Results HLA Lukasz Class I Single Antigen (01/21/2014) [facility] Method Time Signature SA1 Test SA [...] Phon e Number [facility] Immunology/Histocompatabil [place], [place] [address] ity [facility] [address], Room 3-580 HISTOTRAC documented in this encounter Visit Diagnoses Not on filedocumented in this encounter Care Teams Sales Support Coordinator Relationship Specialty Start Date End Date Momo Forbes PCP - General Family Practice 01/02/14 [facility] [address] [place] [address] Ingrid Santana, RN Registered Nurse Transplant 02/10/12 10/01/15 documented as of this encounter
--- OUTSIDE RECORDS SUMMARY | 2022-03-30 18:52 | XMS_ITS | Encounter Summary ---
:1950 Author Organization [place] Address [facility] [place] [address] Care Team Providers Name Role Phone Toña Jones MD Primary Care Provider Ingrid Santana RN Unavailable Encounter Details Date Type Department Care Team Description 02/28/2013 Orders Only [facility] Molly Sanderson Organ transplant [address] [facility] candidate (Primary Dx) [place] [phone] Social History Tobacco Use Types Packs/Day Years [...] documented as of this encounter Progress Notes Molly Sanderson - 02/28/2013 1:54 PM CDT Pharmacy Pre-Kidney Transplant Medication Evaluation This patient is a 62 year old male being considered for kidney transplantation. As part of the pre-kidney transplant patient evaluation, pharmacy has screened this patient???s electronic medical recordfor medication related concerns. Patient has no known allergies reported. Assessment/Plan: The following medication related issues may be of possible concern for this patient post transplant,based on the medical record medication list review.: 1. Transplant team should address patient's current aspirin 81 mg daily regimen prior to surgery as it may increase bleeding risk. It is recommended to hold for 5-7 days prior to surgery. 2. Patient's influenza vaccine has not been documented. Pharmacy will continue to participate in this patient's care throughout the transplant course. Please contact pharmacy with any further medication related questions or concerns. Molly Sanderson, PharmD IV Student documented in this encounter Plan of Treatment Not on filedocumented as of this encounter Visit Diagnoses Diagnosis Organ transplant candidate - Primary Awaiting organ transplant status documented in this encounter Care Teams Wind Turbine Electrical Engineer Relationship Specialty Start Date End Date Toña Jones MD PCP - General Nephrology 11/25/11 01/01/14 Ingrid Santana RN Registered Nurse Transplant 02/10/12 10/01/15 documented as of this encounter
--- OUTSIDE RECORDS SUMMARY | 2022-03-30 18:52 | XMS_ITS | Encounter Summary ---
:1950 Author Organization [place] Address [facility] [place] [address] Care Team Providers Name Role Phone Toña Jones MD Primary Care Provider Ingrid Santana RN Unavailable Encounter Details Date Type Department Care Team Description 07/03/2012 Results Only LABORATORY RESULTS Barbara Bradley MD [address] [place], [place] [address] Social History Tobacco Use [...] Name Priority Date/Time Associated Diagnosis Comme nts VIRTUAL CROSSMATCH Routine 07/03/2012 Results f or this procedure are i n the results section . documented in this encounter Results Virtual Crossmatch (07/03/2012) [facility] Method Time Signature Crossmatch Donor:GEOVANYKATHARINEABRAHAM Figueredo ? Crossmatch Date:07/24/2012 HISTOTRAC Result (Note) Serum Date ??Test ?Result ? Donor Specific Antibody ?Comments 07/03/2012 ??Class I/Virtxm1 ? DSA ?None ? 07/03/2012 ??Class II/Virtxm 1 ?DSA ?None ? Specimen (Source) Anatomical Collection Method Collection Time Re ceived Time Location / / Volume Laterality 07/03/2012 07/05/2012 1:57 PM SENIOR PROCUREMENT MANAGER Barbara Bradley MD LAB - IMMUNOLOGY ORDERABLES Performing Organization Address City/State/ZIP Code Phon e Number [facility] Immunology/Histocompatabil [place], [place] [address] [facility] [address], Room 3-580 HISTOTRAC documented in this encounter Visit Diagnoses Not on filedocumented in this encounter Care Teams Bill Poster Installer Relationship Specialty Start Date End Date Toña Jones MD PCP - General Nephrology 11/25/11 01/01/14 Ingrid Santana RN Registered Nurse Transplant 02/10/12 10/01/15 documented as of this encounter
--- OUTSIDE RECORDS SUMMARY | 2022-03-30 18:52 | XMS_ITS | Encounter Summary ---
:1950 Author Organization [place] Address [address] [place] [address] Care Team Providers Name Role Phone Toña Jones MD Primary Care Provider Ingrid Santana RN Unavailable Encounter Details Date Type Department Care Team Description 11/05/2013 Results Only LABORATORY RESULTS Barbara Bradley MD [address] [place], [place] [address] Social History Tobacco Use [...] Comme nts HLA LUKASZ CLASS I Routine 11/05/2013 7:20 AM Result s for this SINGLE ANTIGEN CDT procedure are in the results section. documented in this encounter Results HLA Lukasz Class I Single Antigen (11/05/2013 7:20 AM CDT) [facility] Method Time Signature SA1 Test SA HI HISTOTRAC Method SA1 Cell Class I HISTOTRAC SA1 PRA %POS 1 HISTOTRAC SA1 Hi Risk None HISTOTRAC Lukasz SA1 Mod Risk A:43 Cw:17 HISTOTRAC Lukasz SA1 Comments Test performed by aden soto. Serum heat inactivated. High-risk, HISTOTRAC mfi >3,000. Mod-risk, mfi 500-3,000. Predictive PRA derived from local donor pool. Specimen Anatomical Collection Method Collection Time Receive d Time (Source) Location / / Volume Laterality 11/05/2013 7:20 AM 4 3:50 CDT PM CDT Barbara Bradley MD LAB - IMMUNOLOGY ORDERABLES Performing Organization Address City/State/ZIP Code Phon e Number [facility] Immunology/Histocompatabil [place], [place] [address] ity [facility] [address] [facility] [address] Building, Room 3-580 HISTOTRAC documented in this encounter Visit Diagnoses Not on filedocumented in this encounter Care Teams Solar Energy Systems Engineer Relationship Specialty Start Date End Date Toña Jones MD PCP - General Nephrology 11/25/11 01/01/14 Ingrid Santana, RN Registered Nurse Transplant 02/10/12 10/01/15 documented as of this encounter
--- OUTSIDE RECORDS SUMMARY | 2022-03-30 18:52 | XMS_ITS | Encounter Summary ---
:1950 Author Organization [place] Address [address] [facility] [place] [address] Care Team Providers Name Role Phone Toña Jones MD Primary Care Provider Ingrid Santana RN Unavailable Reason for Referral CV Cardio consult - Closed Specialty Diagnoses / Procedures Referred By Contact Refer red To Contact Diagnoses Organ transplant candidate Screening for other and unspecified cardiovascular conditions ESRD (end stage renal disease) on dialysis (H) DM (diabetes mellitus), type 2 (H) [facility] 2nd Floor, Clinic [address] [place] [phone] Referral ID Status Reason Start Date Expiration Date Visits Requ ested Visits Authorized [id number] Closed 12/10/2013 06/08/2014 1 1 Consultation - Closed Specialty Diagnoses / Procedures Referred By Contact Refer red To Contact Diagnoses Organ transplant candidate ESRD (end stage renal disease) on dialysis (H) DM (diabetes mellitus), type 2 (H) [facility] Sot Surgery [facility] Floor, [facility] [address] [phone] Referral ID Status Reason Start Date Expiration Date Visits Requ ested Visits Authorized [id number] Closed 12/10/2013 06/08/2014 1 1 Encounter Details Date Type Department Care Team Description 12/07/2013 Orders Only Transplant Surgery Nazia March LPN Organ transplant candidate (Primary Dx); Clinic Screening for other and unsp ecified cardiovascular conditions; 2nd Floor, Clinic 2A ESRD (end stage renal diseas e) on dialysis (H); Tommy Wilburn DM (madeleine betes mellitus), type 2 (H) [address] [phone] Social History Tobacco Use Types [...] Name Type Priority Associated Diagnoses Order S chefelipele Nephrology Adult Referral Routine Organ transplan t candidate 12/07/2013 Referral ESRD (end stage renal disease) on dial ysis (H) DM (diabetes mellitus), type 2 (H) Cardiology Eval Adult Referral Routine Organ proctor splant candidate 12/07/2013 Referral Screening for other and unspecified cardiovascular conditions ESRD (end stage renal disease) on dial ysis (H) DM (diabetes mellitus), type 2 (H) documented as of this encounter Visit Diagnoses Diagnosis Organ transplant candidate - Primary Awaiting organ transplant status Screening for other and unspecified card iovascular conditions ESRD (end stage renal disease) on dialys is (H) End stage renal disease DM (diabetes mellitus), type 2 (H) Type II or unspecified type diabetes aung litus without mention of complication, not stated as uncontrolled documented in this encounter Care Teams Collator Hand Relationship Specialty Start Date End Date Toña Jones MD PCP - General Nephrology 11/25/11 01/01/14 Siers, Ingrid A, RN Registered Nurse Transplant 02/10/12 10/01/15 documented as of this encounter
--- OUTSIDE RECORDS SUMMARY | 2022-03-30 18:52 | XMS_ITS | Encounter Summary ---
:1950 Author Organization [place] Address [facility] [place] [address] Care Team Providers Name Role Phone Toña Jones MD Primary Care Provider Ingrid Santana RN Unavailable Momo Forbes Primary Care Provider Encounter Details Date Type Department Care Team Description 12/25/2012 Historic Results GH CONVERSION Provider, MD Marcela [...] nts LAB RESULT - HIM SCAN - 12/25/2012 8:28 AM CDT ARCHIVE documented in this encounter Results LAB RESULT - HIM SCAN - ARCHIVE (12/25/2012 8:28 AM CDT) Specimen (Source) Anatomical Location Collection Method / Collectio n Time Received Time / Laterality Volume Narrative This result has an attachment that is no t available. Marcela Cordero MD LAB - BLOOD ORDERABLES documented in this encounter Visit Diagnoses Not on filedocumented in this encounter Care Teams Road Contractor Relationship Specialty Start Date End Date Toña Jones MD PCP - General Nephrology 11/25/11 01/01/14 Momo Forbes PCP - General Family Practice 01/02/14 [facility] [address] [place] [address] Ingrid Santana, RN Registered Nurse Transplant 02/10/12 10/01/15 documented as of this encounter
--- OUTSIDE RECORDS SUMMARY | 2022-03-30 18:52 | XMS_ITS | Encounter Summary ---
:1950 Author Organization [place] Address [address] [place] [address] Care Team Providers Name Role Phone Toña Jones MD Primary Care Provider Ingrid Santana RN Unavailable Encounter Details Date Type Department Care Team Description 11/05/2013 Results Only LABORATORY RESULTS Barbara Bradley MD [address] [place], [place] [address] Social History Tobacco Use [...] Comme nts HLA LUKASZ CLASS II Routine 11/05/2013 7:20 AM Resul ts for this SINGLE ANTIGEN CDT procedure are in the results section. documented in this encounter Results HLA Lukasz Class II Single Antigen (11/05/2013 7:20 AM CDT) [facility] Method Time Signature SA2 Test SA HI [...] Phon e Number [facility] Immunology/Histocompatabil [place], [place] [address] ity [facility] [address] [facility] [address] Building, Room 3-580 HISTOTRAC documented in this encounter Visit Diagnoses Not on filedocumented in this encounter Care Teams Strapper Operator Relationship Specialty Start Date End Date Toña Jones MD PCP - General Nephrology 11/25/11 01/01/14 Ingrid Santana RN Registered Nurse Transplant 02/10/12 10/01/15 documented as of this encounter
--- OUTSIDE RECORDS SUMMARY | 2022-03-30 18:52 | XMS_ITS | Encounter Summary ---
:1950 Author Organization [place] Address [facility] [place] [address] Care Team Providers Name Role Phone Toña Jones MD Primary Care Provider Ingrid Santana RN Unavailable Encounter Details Date Type Department Care Team Description 12/18/2013 Orders Only Transplant Surgery Nazia March LPN Organ transplant candidate; Clinic Screening for other and unsp ecified cardiovascular conditions; 2nd Floor, Clinic 2A ESRD (end stage renal diseas e) on dialysis (H); Tommy Wilburn DM (madeleine betes mellitus), type 2 (H) Building [address] [place] [address] [phone] Social History Tobacco Use Types Packs/Day Years [...] encounter Visit Diagnoses Diagnosis Organ transplant candidate Awaiting organ transplant status Screening for other and unspecified card iovascular conditions ESRD (end stage renal disease) on dialys is (H) End stage renal disease DM (diabetes mellitus), type 2 (H) Type II or unspecified type diabetes aung litus without mention of complication, not stated as uncontrolled documented in this encounter Care Teams Electro Mechanic Relationship Specialty Start Date End Date Toña Jones MD PCP - General Nephrology 11/25/11 01/01/14 Ingrid Santana RN Registered Nurse Transplant 02/10/12 10/01/15 documented as of this encounter
--- OUTSIDE RECORDS SUMMARY | 2022-03-30 18:52 | XMS_ITS | Encounter Summary ---
:1950 Author Organization [place] Address [facility] [place] [address] Care Team Providers Name Role Phone Toña Jones MD Primary Care Provider Ingrid Santana RN Unavailable Reason for Visit Reason Onset Date Comments Transplant 12/19/2013 Kidney waitlist appo intments Encounter Details Date Type Department Care Team Description 12/19/2013 Telephone The Transplant Edda Nash, Provider Transplant (Kidney 2nd Floor, Clinic 2A waitlist appointments) Tommy [address] [phone] Social History Tobacco Use Types Packs/Day Years [...] encounter Miscellaneous Notes Telephone Encounter - Meghan Scott - 12/19/2013 11:02 AM CDT Patient verified date/time of kidney waitlist appointments - schedule sent. documented in this encounter Plan of Treatment Not on filedocumented as of this encounter Visit Diagnoses Not on filedocumented in this encounter Care Teams Rug Underlay Machine Operator Relationship Specialty Start Date End Date Toña Jones MD PCP - General Nephrology 11/25/11 01/01/14 Ingrid Santana, RN Registered Nurse Transplant 02/10/12 10/01/15 documented as of this encounter
--- OUTSIDE RECORDS SUMMARY | 2022-03-30 18:52 | XMS_ITS | Encounter Summary ---
:1950 Author Organization [place] Address [address] [place] [address] Care Team Providers Name Role Phone Ingrid Santana RN Unavailable Momo Forbes Primary Care Provider Reason for Visit Reason Onset Date Comments Pre Visit Planning - Done 01/30/2014 EKG: pre op: [age] yo M, here for continued clearance for possib le kidney txp. Encounter Details Date Type Department Care Team Description 01/30/2014 PRE VISIT [facility] Barbara Bradley Pre Visit Planning - Physicians Orestes Licona MD Done (EKG: pre op: 63 [address] [place], [place] [address] continued clearance 4th Floor, Clinic 4B for possible kidney [facility] [address] txp.) [address] [place] [address] [phone] Social History Tobacco Use Types Packs/Day Years [...] this encounter Miscellaneous Notes Telephone Encounter - Opal Mancini - 01/30/2014 10:10 AM CDT HPI: Diego is a 63 year old patient with history of DM, HTN, Hyperlipidemia, 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 DM for 12 years . On insulin for 4 years. ESRD 1 year. On HD since Aug 2011. No past VA, stress tests or coronary angiogorams. No chest pain. Mild dyspnea - chronic. No palpitations or syncope. No f/h of CAD. Smoked 1 - 2 cigars /week for 2 - 3 years Procedures: Echo: 02-08-2012 Interpretation Summary No significant valvular abnormalities were [...] pericardial effusion is present. PatientHeight: 72 in [place] Stress Test: 02/15/2012 1. Normal study. 2. There is no evidence of relative ischemia during adenosine induced hyperemia. 3. Left ventricular size is moderately dilated at rest. Transient ischemic dilation of the left ventricle did not occur. 4. The left ventricular ejection fraction is 46 % and there are no regional wall motion abnormalities. documented in this encounter Plan of Treatment Not on filedocumented as of this encounter Visit Diagnoses Diagnosis ESRD (end stage renal disease) on dialys is (H) - Primary End stage renal disease documented in this encounter Care Teams Black Belt Relationship Specialty Start Date End Date Momo Forbes PCP - General Family Practice 01/02/14 [facility] [address] [place] [address] Ingrid Santana, RN Registered Nurse Transplant 02/10/12 10/01/15 documented as of this encounter
--- OUTSIDE RECORDS SUMMARY | 2022-03-30 18:52 | XMS_ITS | Encounter Summary ---
:1950 Author Organization [place] Address [address] [place] [address] Care Team Providers Name Role Phone Toña Jones MD Primary Care Provider Ingrid Santana RN Unavailable Encounter Details Date Type Department Care Team Description 01/17/2013 Results Only LABORATORY RESULTS Barbara Bradley MD [address] [place], [place] [address] Social History Tobacco Use [...] Comme nts HLA LUKASZ CLASS II Routine 01/17/2013 Results for this SINGLE ANTIGEN procedure are in the results section . documented in this encounter Results HLA Lukasz Class II Single Antigen (01/17/2013) [facility] Method Time Signature SA2 Test Single Antigen [...] Phon e Number [facility] Immunology/Histocompatabil [place], [place] [phone] ity [facility] [address] Building, Room 3-580 HISTOTRAC documented in this encounter Visit Diagnoses Not on filedocumented in this encounter Care Teams Derrick Boat Leverman Relationship Specialty Start Date End Date Toña Jones MD PCP - General Nephrology 11/25/11 01/01/14 Ingrid Santana RN Registered Nurse Transplant 02/10/12 10/01/15 documented as of this encounter
--- OUTSIDE RECORDS SUMMARY | 2022-03-30 18:52 | XMS_ITS | Encounter Summary ---
:1950 Author Organization [place] Address [address] [place] [address] Care Team Providers Name Role Phone Ingrid Santana RN Unavailable Momo Forbes Primary Care Provider Encounter Details Date Type Department Care Team Description 01/20/2014 Orders Only [facility], [facility], [facility] [place] [address] [phone] [place] [address] [address] [place] [address] (Wo rk) Social History Tobacco [...] Associated Comments Diagnosis TACROLIMUS BY TANDEM Routine 02/15/2014 8:55 AM R esults for this MASS SPECTROMETRY CDT procedure are in the results section. documented in this encounter Results Tacrolimus level (02/15/2014 8:55 AM CDT) Patholo gist Method Time Signature Tacrolimus Last 02/14/2014 [facility] Dose 2030 [facility] Tacrolimus 5.9 5.0 - [facility] Level 15.0 ug/L [facility] Comment: Tacrolimus Reference Range Kidney Transplant [...] Time (Source) Location / / Volume Laterality 02/15/2014 8:55 AM 4 2:10 CDT PM CDT Joseph Quintana MD LAB - BLOOD ORDERABLES Performing Organization Address City/State/ZIP Code Phon e Number [facility] [address] [place] [address] [facility] documented in this encounter Visit Diagnoses Not on filedocumented in this encounter Care Teams Portable Power Tool Repairer Relationship Specialty Start Date End Date Momo Forbes PCP - General Family Practice 01/02/14 [facility] [address] [place] [phone] Ingrid Santana, RN Registered Nurse Transplant 02/10/12 documented as of this encounter
--- OUTSIDE RECORDS SUMMARY | 2022-03-30 18:52 | XMS_ITS | Encounter Summary ---
:1950 Author Organization [place] Address [facility] [place] [address] Care Team Providers Name Role Phone Ingrid Santana RN Unavailable Momo Forbes Primary Care Provider Reason for Visit Reason Onset Date Comments Transplant 02/02/2014 Kidney Offer Encounter Details Date Type Department Care Team Description 02/02/2014 Telephone Transplant Surgery Carmelita Rosario Tran splant (Kidney Clinic RN Offer) 2nd Floor, Clinic [address]A [address] [phone] Social History Tobacco Use Types Packs/Day Years [...] this encounter Miscellaneous Notes Telephone Encounter - Carmelita Rosario RN - 02/02/2014 11:39 AM CDT Received an offer for kidney for Diego. I called to discuss offer with patient. He is very excited for this offer. He denies any recent infections, hospitalizations, or sensitizing events. He dialyzes MWF with last HD run on Tuesday. He does make a small amount of urine daily. Plan per Dr Owens - start crossmatch with in-lab sample from 01/21/14, make patient NPO & admit to the hospital for pre-op for kidney transplant. I discussed this plan with Diego; he acknowledged understanding and his ETA to hospital is approximately 12:30PM. I also instructed him to bring his currentmedications and current insurance information with for admission. Called Admissions & 7A charge nurse to discuss plan. Immunology aware of patient and starting crossmatch. documented in this encounter Plan of Treatment Not on filedocumented as of this encounter Visit Diagnoses Not on filedocumented in this encounter Care Teams Staff Anesthesiologist Relationship Specialty Start Date End Date Momo Forbes PCP - General Family Practice 01/02/14 [facility] [address] [place] [address] Ingrid Santana RN Registered Nurse Transplant 02/10/12 10/01/15 documented as of this encounter
--- OUTSIDE RECORDS SUMMARY | 2022-03-30 18:53 | XMS_ITS | Encounter Summary ---
:1950 Author Organization [place] Address [facility]0 [facility] [place] [address] Care Team Providers Name Role Phone Toña Jones MD Primary Care Provider Blayne Santana RN Unavailable Reason for Visit Reason Comments Transplant Evaluation Encounter Details Date Type Department Care Team Description 02/08/2012 Office Visit Transplant Surgery Jesus Cardenas, DM (di abetes mellitus), type 2 (H); Clinic End stage renal disease (H) 2nd Floor, Clinic [address]A [address] [phone] Social History Tobacco Use Types Packs/Day Years [...] documented as of this encounter Progress Notes Jesus Cardenas MD - 02/08/2012 11:18 AM CDT Images from the original note were not included. [facility] Consult Note Date of : 1950, Date of Visit: 02/08/[address] Jones for evaluation of kidney transplant candidacy. Assessment and Recommendations: Mr. Guthrie appears to be a good candidate for kidney transplantationand has a good understanding of the risks and benefits of this approach to the management of renal failure. The following issues should be addressed prior to finalizing his transplant candidacy: 1. Better blood pressure control 2. Lose 10+ lbs, although doing so does not affect candidacy, but should help decrease operative risk. He cannot gain weight, as it would jeopardize his candidacy. 2. Completion of any outstanding workup items (cardiology testing, etc). The majority of our visit was spent in counselling, discussing the medical and surgical risks of kidney transplantation. We discussed approximate wait time and how that is influenced by issues such as blood type and sensitization (PRA) and access to a living donor. We discussed approximate wait time for a standard or expanded criteria donor kidney and associated outcomes. Potential surgical complications of kidney transplantation include bleeding, superficial or deep wound complications (infection, hernia, lymphocele), ureteral anastomotic failure (leak or stenosis), graft thrombosis, needfor reoperation and other issues such as cardiac complications, pneumonia, deep venous thrombosis, pulmonary embolism, post transplant diabetes and . The potential for recurrent disease or need for retransplantation was also addressed. We discussed the possible need for ureteral stent (and subsequent removal), and the utility of protocol biopsy and laboratory studies to evaluate for rejection orrecurrent disease. We discussed the risk of graft rejection, our center's average graft and patient survival rates, immunosuppression protocols, as well as the potential opportunity to participate in clinical trials. We also discussed the average length of stay, recovery process, and posttransplant lab and monitoring protocol. I emphasized the need for strict immunosuppression medication adherence and the potential for complications of immunosuppression such as skin cancer or lymphoma, as well as a very low but not zero risk of donor-derived disease transmission risks (infection, cancer). Mr. Guthrie asked good questions and his candidacy will be reviewed at our Multidisciplinary Selection Committee. Thank you for the opportunity to participate in Mr. Guthrie's care. Total time: 60 minutes Counselling time: 50 minutes Jesus Cardenas MD HPI: Mr. Guthrie has End stage renal failure due to Type 2 Diabetes. Started hemodialysis this past August. Wants kidney transplant to feel better and get off dialysis, to improve quality of life. No known potential living donors. Denies issues with prostatism, bladder emptying, or frequent infections. Active with his work and reports no issues with ambulation related to remote BKA. Good historian. Past Medical History Diagnosis Date ??? Diabetes mellitus type II ??? HTN (hypertension) ??? Hyperlipidemia ??? Diabetic peripheral neuropathy 2001 on insulin x 4 years ??? Retinopathy due to secondary diabetes mellitus ??? Gout ??? Anemia ??? Thrombocytopenia ??? Depression ??? Dialysis patient 08/30/2011 Past Surgical History Procedure Date ??? 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 Avf right forearm ??? Laser surgery of eye both eyes ??? Cataract iol, rt/lt both eyes Family History Problem Relation Age of Onset ??? C.A.D. Father ??? Alzheimers Mother History Social History ??? Marital Status: Single Spouse Name: N/A Number of Children: N/A ??? 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 Smoking status: Former Smoker -- 5 years Types: Cigars Quit date: 08/22/2006 ??? Smokeless tobacco: Never Used ??? Alcohol Use: 0.0 oz/week 0 drink(s) per week occasional drink. ??? Drug Use: Not on file ??? Sexually Active: Not on file Other Topics Concern ??? Blood Transfusions No ??? Seat Belt Yes Social History Narrative ??? No narrative on file ROS: CONSTITUTIONAL: No fevers or chills EYES: negative for icterus ENT: negative for hearing loss, tinnitus and sore throat RESPIRATORY: negative for cough, sputum, dyspnea CARDIOVASCULAR: negative for chest pain GASTROINTESTINAL: negative for nausea, vomiting, diarrhea or constipation GENITOURINARY: negative for incontinence, dysuria, bladder emptying problems HEME: No easy bruising INTEGUMENT: negative for rash and pruritus NEURO: Negative for headache, seizure disorder Allergies: Medications: Prescription Medications as of 02/08/2012 amLODIPine (NORVASC) 10 MG tablet Take 10 mg by mouth daily. aspirin 81 MG tablet Take 1 tablet by mouth daily. B qowakkt-X-xndin acid (NEPHROCAPS) 1 MG capsule Take 1 capsule by mouth daily. carvedilol (COREG) 12.5 MG tablet Take 12.5 mg by mouth 2 times daily (with meals). furosemide (LASIX) 80 MG tablet Take 80 mg by mouth daily. LANTUS VIAL 100 UNITS/ML SC SOLN Inject 40 Units Subcutaneous daily. HumaLOG VIAL 100 UNITS/ML SOLN Inject 3-13 Units Subcutaneous 3 times daily (before meals). LORazepam (ATIVAN) 1 MG tablet Take 1 mg by mouth every 6 hours as needed. sertraline (ZOLOFT) 100 MG tablet Take 100 mg by mouth daily. zolpidem (AMBIEN) 10 MG tablet Take 10 mg by mouth nightly as needed. Exam: Vitals: BP: 180/87 mmHg Temp: 97.9 ??F (36.6 ??C) Temp src: Oral Pulse: 58 Resp: 12 SpO2: 96 % Height: 182.9 cm (6') Weight: 121 kg (266 lb 12.1 oz) BMI : 36.25 Appearance: in no apparent distress. Skin: normal Head and Neck: Normal, no rashes or jaundice Respiratory: lungs clear to auscultation Cardiovascular: RRR without rubs or murmurs Abdomen: rounded, No distention, Liver, spleen, and kidneys not palpably enlarged and Lower abdomen negative for tenderness and masses Extremeties: femoral 2+/2+, Edema, none Neuro: without deficit Labs: ABO: A PRA: pending Hematology: Recent Labs Lab Test 02/08/12 0725 HGB 12.0* PLT 144* WBC 6.3 Coags: Recent Labs Lab Test 02/08/12 0725 INR 1.11 F2MAR -- [id number] -- Lipid Profile: Cholesterol Date Value Range Status 02/08/2012 134 0-200 (mg/dL) Final LDL Cholesterol is the primary guide to therapy. The NCEP recommends further evaluation of: patients with cholesterol greater than 200 mg/dL if additional risk factors are present, cholesterol greater than 240 mg/dL, triglycerides greater than 150 mg/dL, or HDL less than 40 mg/dL. Triglycerides Date Value Range Status 02/08/2012 74 0-150 (mg/dL) Final HDL Cholesterol Date Value Range Status 02/08/2012 42 40-110 (mg/dL) Final LDL Cholesterol Calculated Date Value Range Status 02/08/2012 77 0-129 (mg/dL) Final LDL Cholesterol is the primary guide to therapy: LDL-cholesterol goal in high risk patients is <100 mg/dL and in very high risk patients is <70 mg/dL. Cholesterol/HDL Ratio Date Value Range Status 02/08/2012 3.2 0.0-5.0 (no units) Final Chemistries: Recent Labs Lab Test 02/08/12 0725 BUN 32* CR 5.46* GFR -- GLC 126* A1C 5.3 02/08/2012 Recent Labs Lab Test 02/08/12 0725 ALBUMIN 3.8 BILITOTAL 0.8 ALKPHOS 92 AST 18 ALT 13 Urine Studies: Recent Labs Lab Test 02/08/12 0706 COLOR Light Yellow APPEARANCE Clear URINEGLC 300* URINEBILI Negative URINEKETONE Negative SG 1.010 UBLD Negative URINEPH 7.5* PROTEIN 300* NITRITE Negative LEUKEST Negative RBCU <1 WBCU 1 Virology: Hepatitis B Recent Labs Lab Test 02/08/12 0725 HBSAB 135.0 HBCAB Negative HEPBANG Negative HBCM -- HBEABY -- HBEAGN -- HBVQT -- HBVQTP -- HBQTT -- HBVQTI -- Hepatitis C Hepatitis C Antibody Date Value Range Status 02/08/2012 Negative NEG (no units) Final Serostatus: CMV and EBV pending. documented in this encounter Nursing Notes 02/08/2012 11:00 AM CDT >> BLAYNE SANTANA RN TueFeb 09, 2012 3:21 PM Pre Abdominal Organ Tool Grinder Operator Evaluation Note: present: Dr. Jesus Cardenas Attendees: self Type of transplant: kidney Required Topic(s) Discussed: Evaluation notification document, SRTR data, Multiple wait list brochure, WHEEL AND CASTER REPAIRER, Evaluation/approval process, Selection committee process, Wait list process and Living donor process Teaching: Instruct patient on living donor process/provided contact info, Provided my business card and To call me with any questions Assessment/Plan: Dr. Cardenas reviewed pt's medical history with him. Dr. Cardenas reviewed the risks and benefits of proceeding with a kidney transplant from either a live or a donor. Pt thinks he might have a donor. Pt was instructed to have his potential live donors call our office now to initiate their evaluations. Dr. Cardenas approved pt's BMI of 36 for K transplant due to the even distribution ofhis body mass. I spent approximately 15 minutes with patient after Dr. Cardenas left the room to review the pre-transplant process and to answer questions. Pt seems to be able to easily understand all information. Instructed pt to all me with questions. Time spent with patient: 15 minutes -- Nurse Tool Grinder Operator Pager [phone] BLAYNE SANTANA -- Nurse Tool Grinder Operator Pager [phone] >> Lena Sánchez RN Tue Feb 08, 2012 11:21 AM Evaluation for kidney transplant. He is on dialysis since . BP: 180/87 mmHg Temp: 97.9 ??F (36.6 ??C) Temp src: Oral Pulse: 58 Resp: 12 SpO2: 96 % Height: 182.9 cm (6') Weight: 121 kg (266 lb 12.1 oz) BMI : 36.25 documented in this encounter Plan of Treatment Not on filedocumented as of this encounter Visit Diagnoses Diagnosis DM (diabetes mellitus), type 2 (H) Type II or unspecified type diabetes aung litus without mention of complication, not stated as uncontrolled End stage renal disease (H) End stage renal disease documented in this encounter Care Teams Gelatin Powder Mixer Relationship Specialty Start Date End Date Toña Jones MD PCP - General Nephrology 11/25/11 01/01/14 Blayne Santana, RN Registered Nurse Transplant 02/10/12 10/01/15 documented as of this encounter
--- OUTSIDE RECORDS SUMMARY | 2022-03-30 18:53 | XMS_ITS | Encounter Summary ---
:1950 Author Organization [place] Address [address] [facility] [place] [address] Care Team Providers Name Role Phone Toña Jones MD Primary Care Provider Ingrid Santana RN Unavailable Encounter Details Date Type Department Care Team Description 02/15/2012 Hospital Encounter [facility] Barbara Bradley Unsstar ecified essential hypertension; [facility] Imaging MD Monae Pre-operative clearance [address] [place] [id number] Social History Tobacco Use Types Packs/Day Years [...] Dispensed Refills Start Date End Date Calcium Take 1 tablet by mouth 0 Carbonate-Vitamin D daily (dose unknown) (CALCIUM + D PO) HumaLOG VIAL 100 Inject 20-40 Units 0 UNITS/ML SOLN Subcutaneous 3 times daily (before meals) Patient reported his dose 10-12 unit 2-3 times daily before meals LANTUS VIAL 100 Inject 50 Units 0 UNITS/ML SC SOLN Subcutaneous every evening aspirin 81 MG tablet Take 1 tablet by mouth 0 02/18/2014 daily. B cneirbn-I-tzeqv acid Take 1 capsule by mouth 0 02/08/2014 (NEPHROCAPS) 1 MG daily. capsule lisinopril Take 40 mg by mouth 0 02/08 (PRINIVIL,ZESTRIL) 40 daily MG tablet METOPROLOL SUCCINATE Take 100 mg by mouth 0 02/08/2014 PO daily sertraline (ZOLOFT) Take 100 mg by mouth 0 04/20/2016 100 MG tablet daily. zolpidem (AMBIEN) 10 Take 10 mg by mouth 0 03/06/2014 MG tablet nightly as needed Per patient on hold documented as of this encounter Plan of Treatment Pending Results Name Type Priority Associated Diagnoses Date/Ti me NM INJECTION MPI Imaging Routine Unspecified essential 1:39 PM CDT hypertension Pre-operative clearance documented as of this encounter Procedures Procedure Name Priority Date/Time Associated Diagnosis Comme nts NM MPI ADENOSINE Routine 02/15/2012 4:36 PM Resul ts for this CDT procedure are i n the results section. NM INJECTION MPI Routine 02/15/2012 1:39 PM Unspecified essent ial CDT hypertension Pre-operative clearance documented in this encounter Results NM Mpi adenosine (02/15/2012 4:36 PM CDT) Anatomical Region Laterality Modality Chest Other Specimen (Source) Anatomical Collection Method Collection Time Re ceived Time Location / / Volume Laterality 02/15/2012 4:36 PM CDT Impressions 02/16/2012 9:37 AM CDT Indication: Pretransplant evaluation . Protocol: ??Rest/Pharmacologic stress my ocardial perfusion imaging was performed using 9.7 mCi of Tc-99m tetrof janette at rest and 35.2 mCi of Tc-99m tetrofosmin given using 0.4mg Reg adenoson IV bolus as the stress agent. EKG : Occasional PVCs. No ischemia. Findings: Review of the rest/stress 3 pl ane SPECT reconstructed scintigrams demonstrates normal tracer u ptake in all segments. Left ventricular end diastolic volume is 213m l and end systolic volume 116ml. SSS is zero. Impressions: 1. Normal study. 2. There is no evidence of relative isch emia during adenosine induced hyperemia. ?? 3. Left ventricular size is moderately d ilated at rest. ??Transient ischemic dilation of the left ventricle did not occur. ?? 4. The left ventricular ejection fractio n is 46 % and there are no regional wall motion abnormalities. Barbara Bradley MD IMG NM ORDERABLES documented in this encounter Visit Diagnoses Diagnosis Unspecified essential hypertension Pre-operative clearance Preoperative examination, unspecified documented in this encounter Care Teams Street Light Servicer Relationship Specialty Start Date End Date Toña Jones MD PCP - General Nephrology 11/25/11 01/01/14 Ingrid Santana, BOGDAN Registered Nurse Transplant 02/10/12 10/01/15 documented as of this encounter
--- OUTSIDE RECORDS SUMMARY | 2022-03-30 18:53 | XMS_ITS | Encounter Summary ---
:1950 Author Organization [place] Address [address] [place] [address]. [place] [address] Care Team Providers Name Role Phone Toña Jones MD Primary Care Provider Reason for Visit Reason Comments Transplant Evaluation Kidney transplant evaluation - Diabetes, End Stage Renal Disease Encounter Details Date Type Department Care Team Description 02/08/2012 Office Visit [facility] Transplant Edda Cardenas, Ty Blink, DM (diabetes 2nd Floor, Clinic [facility] MD mellitus), type 2 (H) Tommy Wilburn (Primar y Dx) [address] [phone] Social History Tobacco Use Types Packs/Day Years [...] Sign Reading Time Taken Comments Blood Pressure 180/87 02/08/2012 7:10 AM CDT Pulse 58 02/08/2012 7:10 AM CDT Temperature 36.6 ??C (97.9 ??F) 02/08/2012 7:10 AM CDT Respiratory Rate 12 02/08/2012 7:10 AM CDT Oxygen Saturation 96% 02/08/2012 7:10 AM CDT Inhaled Oxygen Concentration - - Weight 121 kg (266 lb 12.1 oz) 02/08/2012 7:10 AM CDT Height 182.9 cm (6') 02/08/2012 7:10 AM CDT Body Mass Index 36.18 02/08/2012 7:10 AM CDT documented in this encounter Progress Notes Rafaela Krause RN - 02/08/2012 7:48 AM CDT Teaching Flowsheet Relevant Diagnosis: Diabetes, End Stage Renal Disease Teaching Topic: Kidney transplant evaluation process per Dr. Quintana. Patient instructed on schedule of labs, procedures, consults and immunizations as ordered for evaluation. Person(s) involved in teaching: Patient Motivation Level: Asks Questions: Yes Eager to Learn: Yes Cooperative: Yes Receptive (willing/able to accept information): Yes Any cultural factors/yazdanism beliefs that may influence understanding or compliance? NA Patient demonstrates understanding of the following: Reason for the appointment, diagnosis and treatment plan: Yes Knowledge of proper use of medications and conditions for which they are ordered (with special attention to potential side effects or drug interactions): NA Which situations necessitate calling provider and whom to contact: NA Teaching Concerns Addressed: Proper use and care of (medical equip, care aids, etc.): NA Nutritional needs and diet plan: Yes, fasting for labs Pain management techniques: NA Wound Care: NA How and/when to access community resources: NA Instructional Materials Used/Given: Printed schedule, handouts, verbal instructions Time spent with patient: 40 minutes. Filed Vitals: 02/08/12 0710 BP: 180/87 Pulse: 58 Temp: 97.9 ??F (36.6 ??C) Resp: 12 SpO2: 96% 6' 0 266 lbs 12.11 oz Body mass index is 36.18 kg/(m^2). Patient alert, oriented and ambulatory - independent in attending scheduled appointments. Patient plans to return to clinic on 02/09 to continue evaluation. documented in this encounter Plan of Treatment Not on filedocumented as of this encounter Visit Diagnoses Diagnosis DM (diabetes mellitus), type 2 (H) - Ana ashley Type II or unspecified type diabetes aung litus without mention of complication, not stated as uncontrolled documented in this encounter Care Teams Chief Program Officer Relationship Specialty Start Date End Date Toña Jones MD PCP - General Nephrology 11/25/11 01/01/14 documented as of this encounter
--- OUTSIDE RECORDS SUMMARY | 2022-03-30 18:53 | XMS_ITS | Encounter Summary ---
:1950 Author Organization [place] Address [facility]0 [facility] [place] [address] Care Team Providers Name Role Phone Toña Jones MD Primary Care Provider Encounter Details Date Type Department Care Team Description 02/08/2012 [facility] Jesus Gamboa MD Diabetes mellitus, type 2 (H ); Health/Nurse 2nd Floor, Clinic 2A Coordinator, [facility] Care End stage renal disease (H) Visit Tommy [address] [place] [id number] Social History Tobacco Use Types Packs/Day Years [...] Name Type Priority Associated Diagnoses Date/Ti me F2 prothrombin [id number] Mut Lab Routine Diabetes mellit us, type 02/08/2012 7:25 AM CDT Anal 2 (H) End stage renal disease (H) Factor 5 leiden mutation Lab Routine Diabetes mellitu s, type 02/08/2012 7:25 AM CDT analysis 2 (H) End stage renal disease (H) documented as of this encounter Procedures Procedure Name Priority Date/Time Associated Comments Diagnosis M TUBERCULOSIS BY Routine 02/08/2012 7:26 AM Diabetes mellitus , Results for this QUANTIFERON CDT type 2 (H) procedure are in End stage renal the results disease (H) section. ANTIBODY TITER RED CELL Routine 02/08/2012 7:26 AM Diabetes me llitus, Results for this CDT type 2 (H) procedure are in End stage renal the results disease (H) section. FACTOR 2 PROTHROMBIN Routine 02/08/2012 7:25 AM Diabetes jenniferi tus, [id number] MUT ANAL CDT type 2 (H) End stage renal disease (H) CMV IGG ANTIBODY Routine 02/08/2012 7:25 AM Diabetes mellitus, Results for this CDT type 2 (H) procedure are in End stage renal the results disease (H) section. EBV VCA IGG ANTIBODY Routine 02/08/2012 7:25 AM Diabetes melli tus, Results for this CDT type 2 (H) procedure are in End stage renal the results disease (H) section. CBC WITH PLATELETS & Routine 02/08/2012 7:25 AM Diabetes jenniferi tus, Results for this DIFFERENTIAL CDT type 2 (H) procedure are in End stage renal the results disease (H) section. VARICELLA ZOSTER Routine 02/08/2012 7:25 AM Diabetes mellitus, Results for this ANTIBODY IGG CDT type 2 (H) procedure are in End stage renal the results disease (H) section. THROMBIN TIME Routine 02/08/2012 7:25 AM Diabetes mellitus, Re sults for this CDT type 2 (H) procedure are in End stage renal the results disease (H) section. INR Routine 02/08/2012 7:25 AM Diabetes mellitus, Res ults for this CDT type 2 (H) procedure are in End stage renal the results disease (H) section. PROSTATE SPECIFIC Routine 02/08/2012 7:25 AM Diabetes mellitus , Results for this ANTIGEN SCREEN CDT type 2 (H) procedure are in End stage renal the results disease (H) section. PARTIAL THROMBOPLASTIN Routine 02/08/2012 7:25 AM Diabetes aung litus, Results for this TIME CDT type 2 (H) procedure are in End stage renal the results disease (H) section. LUPUS ANTICOAGULANT Routine 02/08/2012 7:25 AM Diabetes mellit us, Results for this PANEL CDT type 2 (H) procedure are in End stage renal the results disease (H) section. LIPID PROFILE Routine 02/08/2012 7:25 AM Diabetes mellitus, Re sults for this CDT type 2 (H) procedure are in End stage renal the results disease (H) section. IMMUNOLOGY RECIPIENT Routine 02/08/2012 7:25 AM Diabetes melli tus, Results for this CDT type 2 (H) procedure are in End stage renal the results disease (H) section. HIV 1 AND 2 ANTIBODY Routine 02/08/2012 7:25 AM Diabetes melli tus, Results for this (QUEST) CDT type 2 (H) procedure are in End stage renal the results disease (H) section. HEPATITIS C ANTIBODY Routine 02/08/2012 7:25 AM Diabetes melli tus, Results for this CDT type 2 (H) procedure are in End stage renal the results disease (H) section. HEPATITIS B SURFACE Routine 02/08/2012 7:25 AM Diabetes mellit us, Results for this ANTIBODY CDT type 2 (H) procedure are in End stage renal the results disease (H) section. HEPATITIS B SURFACE Routine 02/08/2012 7:25 AM Diabetes mellit us, Results for this ANTIGEN CDT type 2 (H) procedure are in End stage renal the results disease (H) section. HEPATITIS B CORE Routine 02/08/2012 7:25 AM Diabetes mellitus, Results for this ANTIBODY CDT type 2 (H) procedure are in End stage renal the results disease (H) section. HEMOGLOBIN A1C Routine 02/08/2012 7:25 AM Diabetes mellitus, R esults for this CDT type 2 (H) procedure are in End stage renal the results disease (H) section. FACTOR 5 LEIDEN Routine 02/08/2012 7:25 AM Diabetes mellitus, MUTATION ANALYSIS CDT type 2 (H) End stage renal disease (H) COMPREHENSIVE METABOLIC Routine 02/08/2012 7:25 AM Diabetes me llitus, Results for this PANEL CDT type 2 (H) procedure are in End stage renal the results disease (H) section. CARDIOLIPIN ANTIBODY Routine 02/08/2012 7:25 AM Diabetes melli tus, Results for this IGG AND IGM CDT type 2 (H) procedure are in End stage renal the results disease (H) section. C-PEPTIDE Routine 02/08/2012 7:25 AM Diabetes mellitus, Res ults for this CDT type 2 (H) procedure are in End stage renal the results disease (H) section. ANTI TREPONEMA Routine 02/08/2012 7:25 AM Diabetes mellitus, R esults for this CDT type 2 (H) procedure are in End stage renal the results disease (H) section. ABO/RH TYPE AND SCREEN Routine 02/08/2012 7:25 AM Diabetes aung litus, Results for this CDT type 2 (H) procedure are in End stage renal the results disease (H) section. FACTOR 2 AND 5 MUTATION Routine 02/08/2012 7:07 AM Results for this ANALYSIS CDT procedure are i n the results section. ROUTINE UA WITH Routine 02/08/2012 7:06 AM Diabetes mellitus, Results for this MICROSCOPIC CDT type 2 (H) procedure are in End stage renal the results disease (H) section. documented in this encounter Results M Tuberculosis by Quantiferon (02/08/2012 7:26 AM CDT) [facility] Method Time Signature M Tuberculosis Negative NEG [facility] Result [facility] LABS M Tuberculosis 0.01 IU/mL [facility] Antigen Value [facility] Comment: This is a qualitative test. ??The TB ant igen IU/mL value is required for documentation on certain government rep orting forms but this value should not be used to monitor disease progression or response to therapy. Diagnosing or excluding tuberculosis di sease, and assessing the probability of LTBI, require a combination of epidemio logical, historical, medical and diagnostic findings that should be take n into account when interpreting QuantiFERON TB results. Specimen Anatomical Collection Method Collection Time Receive d Time (Source) Location / / Volume Laterality Blood specimen 02/08/2012 7:26 AM 012 7:31 (specimen) CDT AM CDT Darian Joshi MD LAB - BLOOD ORDERABLES Performing Organization Address City/State/ZIP Code Phon e Number [facility] [address] [place], [place] [id number] [place] [address] [facility] LABS Antibody titer red cell (02/08/2012 7:26 AM CDT) [facility] Method Time Signature Antibody Titer Anti B [facility] titer IgM: [place] 4 Ig CAMPUS LABS Specimen Anatomical Collection Method Collection Time Receive d Time (Source) Location / / Volume Laterality Blood specimen 02/08/2012 7:26 AM 012 7:31 (specimen) CDT AM CDT Darian Joshi MD LAB - BLOOD BANK TEST ORDER Performing Organization Address City/State/ZIP Code Phon e Number [facility] [address] LABS Prostate spec antigen screen (02/08/2012 7:25 AM CDT) P athologist Signature PSA 0.44 0 - 4 ug/L [facility] LABS Comment: PSA results are about 7% lower than our prior method due to a methodology change on April 20, 2011. Specimen Anatomical Collection Method Collection Time Receive d Time (Source) Location / / Volume Laterality Blood specimen 02/08/2012 7:25 AM 012 7:30 (specimen) CDT AM CDT Darian Joshi MD LAB - BLOOD ORDERABLES Performing Organization Address City/State/ZIP Code Phon e Number [facility] [address] LABS Hemoglobin A1c (02/08/2012 7:25 AM CDT) P athologist Signature Hemoglobin A1C 5.3 4.3 - 6.0 [facility] % [facility] LABS Specimen Anatomical Collection Method Collection Time Receive d Time (Source) Location / / Volume Laterality Blood specimen 02/08/2012 7:25 AM 012 7:30 (specimen) CDT AM CDT Darian Joshi MD LAB - BLOOD ORDERABLES Performing Organization Address City/State/ZIP Code Phon e Number [facility] [address] [place], [place] [phone] [place] [address] LABS C-peptide (02/08/2012 7:25 AM CDT) athologist Signature C Peptide 5.3 0.9 - 6.9 [facility] ng/mL [facility] LABS Specimen Anatomical Collection Method Collection Time Receive d Time (Source) Location / / Volume Laterality Blood specimen 02/08/2012 7:25 AM 012 7:30 (specimen) CDT AM CDT Darian Joshi MD LAB - BLOOD ORDERABLES Performing Organization Address City/State/ZIP Code Phon e Number [address] LABS Cardiolipin antibody IgG and IgM (02/08/2012 7:25 AM CDT) [facility] Method Time Signature Cardiolipin IgG <15.0 0 - 15.0 [facility] Shaye Interpretation: ??Negative GPL [facility] LABS Cardiolipin IgM <12.5 0 - 12.5 [facility] Shaye Interpretation: ??Negative [facility] LABS Specimen Anatomical Collection Method Collection Time Receive d Time (Source) Location / / Volume Laterality Blood specimen 02/08/2012 7:25 AM 012 7:30 (specimen) CDT AM CDT Darian Joshi MD LAB - BLOOD ORDERABLES Performing Organization Address City/State/ZIP Code Phon e Number [phone] [place] [address] LABS (ABNORMAL) Comprehensive metabolic panel (02/08/2012 7:25 AM CDT) [facility] Method Time Signature Sodium 143 133 - 144 [facility] mmol/L [facility] LABS Potassium 4.4 3.4 - 5.3 [facility] mmol/L [facility] LABS Chloride 106 94 - 109 [facility] mmol/L [facility] LABS Carbon Dioxide 24 20 - 32 [facility] mmol/L [facility] LABS Anion Gap 13 6 - 17 [facility] mmol/L [facility] LABS Glucose 126 (H) 60 - 99 [facility] mg/dL [facility] LABS Urea Nitrogen 32 (H) 7 - 30 [facility] mg/dL [facility] LABS Creatinine 5.46 (H) 0.66 - [facility] 1.25 [place] mg/dL CAMPUS LABS GFR Estimate 11 (L) >60 [facility] mL/min/1. [address] LABS GFR Estimate If 13 (L) >60 [facility] Black mL/min/1. [address] LABS Calcium 8.5 8.5 - [facility] 10.4 [facility] mg/dL [facility] LABS Bilirubin Total 0.8 0.2 - 1.3 [facility] mg/dL [facility] LABS Albumin 3.8 3.3 - 4.9 [facility] g/dL [facility] LABS Protein Total 6.8 6.8 - 8.8 [facility] g/dL [facility] LABS Alkaline 92 40 - 150 [facility] Phosphatase U/L [facility] LABS ALT 13 0 - 70 [facility] U/L [facility] LABS AST 18 0 - 45 [facility] U/L [facility] LABS Specimen Anatomical Collection Method Collection Time Receive d Time (Source) Location / / Volume Laterality Blood specimen 02/08/2012 7:25 AM 012 7:30 (specimen) CDT AM CDT Darian Joshi MD LAB - BLOOD ORDERABLES Performing Organization Address City/[facility]/ZIP Code Phon e Number [facility] [address] LABS Lipid Profile (02/08/2012 7:25 AM CDT) P athologist Signature Cholesterol 134 0 - 200 [facility] mg/dL ST[facility] LABS Comment: LDL Cholesterol is the primary guide to therapy. The NCEP recommends further evaluation of: patients with cholesterol greater than 200 mg/dL if additional risk facto rs are present, cholesterol greater than 240 mg/dL, triglycerides greater than 1 50 mg/dL, or HDL less than 40 mg/dL. Triglycerides 74 0 - 150 mg/dL [facility] LABS HDL Cholesterol 42 40 - 110 mg/dL [facility] LABS LDL Cholesterol Calculated 77 0 - 129 mg/dL [facility] LABS Comment: LDL Cholesterol is the primary guide to therapy: LDL-cholesterol goal in high risk patients is <100 mg/dL and in very high risk patients is <70 mg/dL. VLDL-Cholesterol 15 0 - 30 mg/dL [facility] LABS Cholesterol/HDL Ratio 3.2 0.0 - 5.0 [facility] Specimen Anatomical Collection Method Collection Time Receive d Time (Source) Location / / Volume Laterality Blood specimen 02/08/2012 7:25 AM 012 7:30 (specimen) CDT AM CDT Darian Joshi MD LAB - BLOOD ORDERABLES Performing Organization Address City/State/ZIP Code Phon e Number [facility] [address] [place] [address] [facility] LABS ABO/Rh type and screen (02/08/2012 7:25 AM CDT) Patholo gist Method Time Signature ABO A [facility] LABS RH(D) Pos [facility] LABS Antibody Neg [facility] Screen [facility] LABS Specimen 02/11/2012 [facility] Expires [facility] LABS Specimen Anatomical Collection Method Collection Time Receive d Time (Source) Location / / Volume Laterality Blood specimen 02/08/2012 7:25 AM 012 7:30 (specimen) CDT AM CDT Darian Joshi MD LAB - BLOOD BANK TEST ORDER Performing Organization Address City/[facility]/ZIP Code Phon e Number [facility] [address] LABS Varicella zoster antibody IgG (02/08/2012 7:25 AM CDT) Patholo gist Method Time Signature Varicella 1023.00 [facility] Zoster IgG [place] Immune Status CAMPUS LABS Ratio Vari Zoster Positive, [facility] IgG Interp suggests [place] prev. CAMPUS LABS exposure and probable immunity Specimen Anatomical Collection Method Collection Time Receive d Time (Source) Location / / Volume Laterality Blood specimen 02/08/2012 7:25 AM 012 7:30 (specimen) CDT AM CDT Darian Joshi MD LAB - BLOOD ORDERABLES Performing Organization Address City/[facility]/ZIP Code Phon e Number [facility] [address] LABS Anti treponema EIA (02/08/2012 7:25 AM CDT) Analysis Performed At Patho logist Time Signature Treponema Negative NEG [facility] Antibody [facility] Specimen Anatomical Collection Method Collection Time Receive d Time (Source) Location / / Volume Laterality Blood specimen 02/08/2012 7:25 AM 012 7:30 (specimen) CDT AM CDT Darian Joshi MD LAB - BLOOD ORDERABLES Performing Organization Address City/[facility]/ZIP Code Phon e Number [facility] [address] [place], [place] [phone] [place] [address] LABS HIV 1 and 2 Antibody (02/08/2012 7:25 AM CDT) Analysis Performed At Patho logist Time Signature HIV 1&2 Negative NEG [facility] Antibody [facility] LABS Specimen Anatomical Collection Method Collection Time Receive d Time (Source) Location / / Volume Laterality Blood specimen 02/08/2012 7:25 AM 012 7:30 (specimen) CDT AM CDT Darian Joshi MD LAB - BLOOD ORDERABLES Performing Organization Address City/State/ZIP Code Phon e Number [facility] [address] [place], [place] [phone] [place] [address] LABS Hepatitis C antibody (02/08/2012 7:25 AM CDT) Analysis Performed At Patho logist Time Signature Hepatitis C Negative NEG [facility] Antibody [facility] LABS Specimen Anatomical Collection Method Collection Time Receive d Time (Source) Location / / Volume Laterality Blood specimen 02/08/2012 7:25 AM 012 7:30 (specimen) CDT AM CDT Darian Joshi MD LAB - BLOOD ORDERABLES Performing Organization Address City/State/ZIP Code Phon e Number [facility] [address] [place], [place] [phone] [place] [address] LABS Hepatitis B surface antigen (02/08/2012 7:25 AM CDT) Analysis [facility] Signature Hep B Surface Negative NEG [facility] Agn [facility] LABS Specimen Anatomical Collection Method Collection Time Receive d Time (Source) Location / / Volume Laterality Blood specimen 02/08/2012 7:25 AM 012 7:30 (specimen) CDT AM CDT Darian Joshi MD LAB - BLOOD ORDERABLES Performing Organization Address City/[facility]/ZIP Code Phon e Number [facility] [address] LABS Hepatitis B surface antibody (02/08/2012 7:25 AM CDT) P athologist Signature Hep B Surface 135.0 [facility] LABS Comment: Positive, Patient is considered to be im mune to infection with hepatitis B when the value is greater than or equal to 1 2.0 mlU/mL. Specimen Anatomical Collection Method Collection Time Receive d Time (Source) Location / / Volume Laterality Blood specimen 02/08/2012 7:25 AM 012 7:30 (specimen) CDT AM CDT Darian Joshi MD LAB - BLOOD ORDERABLES Performing Organization Address City/State/ZIP Code Phon e Number [facility] [address] [place], [place] [phone] [place] [address] LABS Hepatitis B core antibody (02/08/2012 7:25 AM CDT) Analysis Performed At Patho logist Time Signature Hepatitis B Negative NEG [facility] Specimen Anatomical Collection Method Collection Time Receive d Time (Source) Location / / Volume Laterality Blood specimen 02/08/2012 7:25 AM 012 7:30 (specimen) CDT AM CDT Darian Joshi MD LAB - BLOOD ORDERABLES Performing Organization Address City/[facility]/ZIP Code Phon e Number [facility] [address] LABS EBV VCA IgG Antibody (02/08/2012 7:25 AM CDT) P athologist Signature EBV VCA IgG 188.00 U/mL [facility] LABS Comment: Positive, suggests immunologic exposure. Specimen Anatomical Collection Method Collection Time Receive d Time (Source) Location / / Volume Laterality Blood specimen 02/08/2012 7:25 AM 012 7:30 (specimen) CDT AM CDT Darian Joshi MD LAB - BLOOD ORDERABLES Performing Organization Address City/[facility]/ZIP Code Phon e Number [facility] [address] LABS CMV IGG ANTIBODY (02/08/2012 7:25 AM CDT) P athologist Signature CMV IgG 3.30 U/mL [facility] LABS Comment: Positive for anti-CMV IgG Specimen Anatomical Collection Method Collection Time Receive d Time (Source) Location / / Volume Laterality Blood specimen 02/08/2012 7:25 AM 012 7:30 (specimen) CDT AM CDT Darian Joshi MD LAB - BLOOD ORDERABLES Performing Organization Address City/[facility]/ZIP Code Phon e Number [facility] [address] LABS Immunology recipient: SOT HLA Workup (ABC,DR,DQ,PRA,Crossmatch) (02/08/2012 7:25 AM CDT) Patholo gist Method Time Signature Immunology SOT HLA WORKUP [facility] Test Name [facility] LABS Immunology Specimen [facility] Result received - [place] Immunology CAMPUS LABS report to follow upon completion. Specimen Anatomical Collection Method Collection Time Receive d Time (Source) Location / / Volume Laterality Blood specimen 02/08/2012 7:25 AM 012 7:30 (specimen) CDT AM CDT Darian Joshi MD LAB - IMMUNOLOGY ORDERABLES Performing Organization Address City/State/ZIP Code Phon e Number [facility] [address] [place] [address] [facility] LABS (ABNORMAL) CBC with platelets differential (02/08/2012 7:25 AM CDT) [facility] gist Method Time Signature WBC 6.3 4.0 - [facility] 11.0 [facility] 10e9/L CAMPUS LABS RBC Count 3.97 (L) 4.4 - 5.9 [facility] 10e12/L [facility] LABS Hemoglobin 12.0 (L) 13.3 - [facility] 17.7 g/dL [facility] LABS Hematocrit 36.3 (L) 40.0 - [facility] 53.0 % [facility] LABS MCV 91 78 - 100 [facility] fl [facility] LABS MCH 30.2 26.5 - [facility] 33.0 pg [place] C[facility] LABS MCHC 33.1 31.5 - [facility] 36.5 g/dL [facility] LABS RDW 15.3 (H) 10.0 - [facility] 15.0 % [facility]ITY CAMPUS LABS Platelet Count 144 (L) 150 - 450 [facility] 10e9/L [facility] LABS Diff Method Automated [facility] Method [facility] LABS % Neutrophils 57.7 40 - 75 % [facility] LABS % Lymphocytes 27.7 20 - 48 % [facility] % Monocytes 8.2 0 - 12 % [facility] % Eosinophils 6.1 (H) 0 - 6 % [facility] LABS % Basophils 0.3 0 - 2 % [facility] % Immature 0.0 0 - 0.4 % [facility] Granulocytes [facility] LABS Absolute 3.6 1.6 - 8.3 [facility] Neutrophil 10e9/L [facility] LABS Absolute 1.7 0.8 - 5.3 [facility] Lymphocytes 10e9/L [facility] LABS Absolute 0.5 0.0 - 1.3 [facility] Monocytes 10e9/L [facility] LABS Absolute 0.4 0.0 - 0.7 [facility] Eosinophils 10e9/L [facility] LABS Absolute 0.0 0.0 - 0.2 [facility] Basophils 10e9/L [facility]AMPUS LABS Abs Immature 0.0 0 - 0.03 [facility] Granulocytes 10e9/L [facility] LABS Specimen Anatomical Collection Method Collection Time Receive d Time (Source) Location / / Volume Laterality Blood specimen 02/08/2012 7:25 AM 012 7:30 (specimen) CDT AM CDT Darian Joshi MD LAB - BLOOD ORDERABLES Performing Organization Address [facility]/ZIP Code Phon e Number [facility] [address] LABS Lupus panel (02/08/2012 7:25 AM CDT) Component Value Ref Test Analysis Performed At Patholo gist Range Method Time Signature Lupus Result Negative NEG [facility] (Note) [place] COMMENTS: STAR LABS The INR is normal. APTT is normal. ??1:2 Mix is not indicated. DRVVT Screen is normal. Thrombin time is normal. NEGATIVE TEST; A LUPUS ANTICOAGULANT WAS NOT DETECTED IN THI S SPECIMEN WITHIN THE LIMITS OF THE TESTING REPERTOIRE. If the clinical picture is strongly suggestive of an antipho spholipid syndrome, recommend anticardiolipin and [id number] (IgG and IgM) antibody tests. Dee Duenas M.D. ??[phone] 02-09-2012. APTT'S: ?? Seconds Reagent = Stago LS Normal ??= 36 Patient ??= 38 1:2 Mix ??= N/A Reference = 31-43 DILUTE NAVARRO [facility]ER [facility]OM TEST: DRVVT Screen Ratio = 0.92 Normal = <1.28 Specimen Anatomical Collection Method Collection Time Receive d Time (Source) Location / / Volume Laterality Blood specimen 02/08/2012 7:25 AM 012 7:30 (specimen) CDT AM CDT Darian Joshi MD LAB - BLOOD ORDERABLES Performing Organization Address City/[facility]/ZIP Code Phon e Number [facility] [address] [place], [place] [phone] [place] [address] LABS Thrombin time (02/08/2012 7:25 AM CDT) P athologist Signature Thrombin Time 16.7 13.0 - [facility] 19.0 sec CAMPUS LABS Specimen Anatomical Collection Method Collection Time Receive d Time (Source) Location / / Volume Laterality Blood specimen 02/08/2012 7:25 AM 012 7:30 (specimen) CDT AM CDT Darian Joshi MD LAB - BLOOD ORDERABLES Performing Organization Address City/[facility]/ZIP Code Phon e Number [facility] [address] LABS Partial thromboplastin time (02/08/2012 7:25 AM CDT) P athologist Signature PTT 29 22 - 37 sec [facility] LABS Specimen Anatomical Collection Method Collection Time Receive d Time (Source) Location / / Volume Laterality Blood specimen 02/08/2012 7:25 AM 012 7:30 (specimen) CDT AM CDT Darian Joshi MD LAB - BLOOD ORDERABLES Performing Organization Address City/[facility]/ZIP Code Phon e Number [facility] [address] LABS INR (02/08/2012 7:25 AM CDT) P athologist Signature INR 1.11 0.86 - 1.14 [facility] LABS Specimen Anatomical Collection Method Collection Time Receive d Time (Source) Location / / Volume Laterality Blood specimen 02/08/2012 7:25 AM 012 7:30 (specimen) CDT AM CDT Darian Joshi MD LAB - BLOOD ORDERABLES Performing Organization Address City/[facility]/ZIP Code Phon e Number [id number] [place] [address] LABS Factor 2 and 5 mutation analysis (02/08/2012 7:07 AM CDT) Component Value Ref Test Analysis Performed At [facility] Range Method Time Signature Copath Report Patient Name: ELINOR GUTHRIE MR#: [id number] Specimen #: [id number] Collected: 02/08/2012 07:07 Received: 02/08/2012 09:00 Reported: 02/11/2012 14:03 Ordering Phy(s): DARIAN JOSHI TEST(S) REQUESTED: A: Factor 5 Leiden and Factor 2 by PCR B: DNA Isolation, High purity extraction SPECIMEN DESCRIPTION: Blood METHODOLOGY: ?? The regions of genomic DNA containing the G1 691A Factor 5 gene mutation (Factor V Leiden) and the Factor 2(Prothrombin G84484C) gene mutation were simultaneously amplified using the polyme rase chain reaction. ??The amplified products were digested with restri ction endonuclease TaqI and products were analyzed by gel electrop horesis. RESULTS: FACTOR 5-LEIDEN RESULTS: Mutation analyzed: ? 1691G>A Factor 5 Mutation Interpretation: ?ABSENT Factor 5 Mutation genotype: ?G/G FACTOR 2/PROTHROMBIN RESULTS: Mutation analyzed: ? 70315S>A Factor 2 Mutation Interpretation: ?ABSENT Factor 2 Mutation genotype: ?G/G INTERPRETATION: The patient is negative for the Factor 5 mutation and negati ve for the Factor 2 mutation. This test was developed and its performance determined by [facility] ??Molecular Diagnostic Laboratory. It has not been cleared or approved by the U.S. Food and David g Administration. ??The FDA has determined that such clearance or approval is not necessary. ??Pursuant to the requirements of CLIA'88, this laboratory has established and verified the test's accuracy and precision. ??This test is used for clinical purposes. Electronically Signed Out By: Liliya Stone MD TESTING LAB LOCATION: [address] [address] COLLECTION SITE: Client: ??[facility] Location: ??UUTXO (B) Specimen Anatomical Collection Method Collection Time Receive d Time (Source) Location / / Volume Laterality 02/08/2012 7:07 AM 2 9:00 CDT AM CDT Provider Unknown LAB - GENOMICS Performing Organization Address City/State/ZIP Code Phon e Number COPATH (ABNORMAL) Routine UA with microscopic (02/08/2012 7:06 AM CDT) Component Value Ref Test Analysis Performed At [facility] gist Range Method Time Signature Color Urine Light Yellow [facility] Appearance Urine Clear [facility] Glucose Urine 300 (A) NEG [facility] mg/dL [facility] Bilirubin Urine Negative NEG [facility] Ketones Urine Negative NEG [facility] mg/dL [facility] Specific [place] 1.010 1.003 - [facility] Urine 1.035 [facility] Blood Urine Negative NEG [facility] pH Urine 7.5 (H) 5.0 - [facility] 7.0 pH [facility] Protein Albumin 300 (A) NEG [facility] Urine mg/dL [facility] Urobilinogen Normal 0.0 - [facility] mg/dL 2.0 [place] mg/dL [facility] Nitrite Urine Negative NEG [facility] Leukocyte Negative NEG [facility] Esterase Urine [facility] Source Unspecified [facility] Urine [facility] WBC Urine 1 0 - 2 [facility] /HPF [facility] RBC Urine <1 0 - 2 [facility] /HPF [facility] Hyaline Casts 3 (H) 0 - 2 [facility] /LPF [facility] Specimen Anatomical Collection Method Collection Time Receive d Time (Source) Location / / Volume Laterality Urine specimen 02/08/2012 7:06 AM 012 7:08 (specimen) CDT AM CDT Darian Joshi MD LAB - URINE ORDERABLES Performing Organization Address City/State/ZIP Code Phon e Number [facility] [address] [facility] documented in this encounter Visit Diagnoses Diagnosis Diabetes mellitus, type 2 (H) Type II or unspecified type diabetes aung litus without mention of complication, not stated as uncontrolled End stage renal disease (H) End stage renal disease documented in this encounter Care Teams Melter Helper Relationship Specialty Start Date End Date Toña Jones MD PCP - General Nephrology 11/25/11 01/01/14 documented as of this encounter
--- OUTSIDE RECORDS SUMMARY | 2022-03-30 18:53 | XMS_ITS | Encounter Summary ---
:1950 Author Organization [place] Address [address] [place] [address] Care Team Providers Name Role Phone Toña Jones MD Primary Care Provider Ingrid Santana RN Unavailable Encounter Details Date Type Department Care Team Description 04/13/2012 Results Only LABORATORY RESULTS Mingo Dangelo MD [address] [facility] [address] [place] [address] (Wo rk) Social History Tobacco [...] nts HLA LUKASZ CLASS I SINGLE Routine 04/13/2012 Resul ts for this ANTIGEN procedure are i n the results section . documented in this encounter Results HLA Lukasz Class I Single Antigen (04/13/2012) [facility] Method Time Signature SA1 Test Single Antigen HISTOTRAC Method SA1 Cell Class I HISTOTRAC SA1 PRA %POS 1 HISTOTRAC SA1 Hi Risk None HISTOTRAC Lukasz SA1 Mod Risk A:43 HISTOTRAC Lukasz SA1 Comments High-risk, mfi >3,000. Mod-r isk, mfi 500-3,000. Predictive PRA derived HISTOTRAC from local donor pool. Specimen (Source) Anatomical Collection Method Collection Time Re ceived Time Location / / Volume Laterality 04/13/2012 04/14/2012 12:1 6 PM CDT Mingo Dangelo MD LAB - IMMUNOLOGY ORDERABLES Performing Organization Address City/State/ZIP Code Phon e Number [facility] Immunology/Histocompatabil [place], [place] [address] ity [facility] [address] Building, Room 3-580 HISTOTRAC documented in this encounter Visit Diagnoses Not on filedocumented in this encounter Care Teams Netting Weaver Relationship Specialty Start Date End Date Toña Jones MD PCP - General Nephrology 11/25/11 01/01/14 Ingrid Santana RN Registered Nurse Transplant 02/10/12 10/01/15 documented as of this encounter
--- OUTSIDE RECORDS SUMMARY | 2022-03-30 18:53 | XMS_ITS | Encounter Summary ---
:1950 Author Organization [place] Address [address] [place] [address] Care Team Providers Name Role Phone Toña Jones MD Primary Care Provider Ingrid Santana RN Unavailable Encounter Details Date Type Department Care Team Description 07/03/2012 Results Only LABORATORY RESULTS Barbara Bradley MD [address] [place], [place] [address] Social History Tobacco Use [...] Comme nts HLA LUKASZ CLASS II Routine 07/03/2012 Results for this SINGLE ANTIGEN procedure are in the results section . documented in this encounter Results HLA Lukasz Class II Single Antigen (07/03/2012) [facility] gist Method Time Signature SA2 Test Single [...] / Volume Laterality 07/03/2012 07/05/2012 1:57 PM SET UP OPERATOR Barbara Bradley MD LAB - IMMUNOLOGY ORDERABLES Performing Organization Address City/State/ZIP Code Phon e Number [facility] Immunology/Histocompatabil [place], [place] [address] ity [facility] [address] Building, Room 3-580 HISTOTRAC documented in this encounter Visit Diagnoses Not on filedocumented in this encounter Care Teams Sr. Media Manager Relationship Specialty Start Date End Date Toña Jones MD PCP - General Nephrology 11/25/11 01/01/14 Ingrid Santana RN Registered Nurse Transplant 02/10/12 10/01/15 documented as of this encounter
--- OUTSIDE RECORDS SUMMARY | 2022-03-30 18:53 | XMS_ITS | Encounter Summary ---
:1950 Author Organization [place] Address [address] [place] [address] Care Team Providers Name Role Phone Toña Jones MD Primary Care Provider Ingrid Santana RN Unavailable Encounter Details Date Type Department Care Team Description 07/03/2012 Results Only LABORATORY RESULTS Barbara Bradley MD [address] [place], [place] [address] Social History Tobacco Use [...] nts HLA LUKASZ CLASS I SINGLE Routine 07/03/2012 Resul ts for this ANTIGEN procedure are i n the results section . documented in this encounter Results HLA Lukasz Class I Single Antigen (07/03/2012) [facility] gist Method Time Signature SA1 Test [...] / Volume Laterality 07/03/2012 07/05/2012 1:57 PM PLATE AND FRAME FILTER OPERATOR Barbara Bradley MD LAB - IMMUNOLOGY ORDERABLES Performing Organization Address City/State/ZIP Code Phon e Number [facility] Immunology/Histocompatabil [place], [place] [address] ity [facility] [address] Building, Room 3-580 HISTOTRAC documented in this encounter Visit Diagnoses Not on filedocumented in this encounter Care Teams Sewer Digger Relationship Specialty Start Date End Date Toña Jones MD PCP - General Nephrology 11/25/11 01/01/14 Ingrid Santana RN Registered Nurse Transplant 02/10/12 10/01/15 documented as of this encounter
--- OUTSIDE RECORDS SUMMARY | 2022-03-30 18:53 | XMS_ITS | Encounter Summary ---
:1950 Author Organization [place] Address [facility] [place] [address] Care Team Providers Name Role Phone Toña Jones MD Primary Care Provider Ingrid Santana RN Unavailable Momo Forbes Primary Care Provider Encounter Details Date Type Department Care Team Description 03/17/2012 Historic Results GH CONVERSION Provider, MD Marcela [...] Name Priority Date/Time Associated Diagnosis Comme nts PATHOLOGY RESULT - HIM 03/17/2012 8:24 AM CDT SCAN - ARCHIVE documented in this encounter Results PATHOLOGY RESULT - HIM SCAN - ARCHIVE (03/17/2012 8:24 AM CDT) Specimen (Source) Anatomical Location Collection Method / Collectio n Time Received Time / Laterality Volume Narrative This result has an attachment that is no t available. Sofych Provider LAB - COPATH SPECIAL DIAG OR DERABLES documented in this encounter Visit Diagnoses Not on filedocumented in this encounter Care Teams Engineering Test Mechanic Relationship Specialty Start Date End Date Toña Jones MD PCP - General Nephrology 11/25/11 01/01/14 Momo Forbes PCP - General Family Practice 01/02/14 [facility] [address] [phone] Ingrid Santana, RN Registered Nurse Transplant 02/10/12 10/01/15 documented as of this encounter
--- OUTSIDE RECORDS SUMMARY | 2022-03-30 18:53 | XMS_ITS | Encounter Summary ---
:1950 Author Organization [place] Address [address] [facility] [place] [address] Care Team Providers Name Role Phone Toña Jones MD Primary Care Provider Ingrid Santana RN Unavailable Encounter Details Date Type Department Care Team Description 02/08/2012 Results Only LABORATORY RESULTS Jeff Joshi MD [address] [facility] [address] [place] [address] (Wo rk) Social History Tobacco [...] Name Priority Date/Time Associated Diagnosis Comme nts HLA-AB TYPING Routine 02/08/2012 7:07 AM Results for this PCR/SSOP CDT procedure are i n the results section. documented in this encounter Results HLA-AB Typing pcr/ssop (02/08/2012 7:07 AM CDT) athologist Signature ABTest Method SSOP HISTOTRAC A* locus 24 HISTOTRAC A* 68 HISTOTRAC B* locus 07 HISTOTRAC B* 44 HISTOTRAC C* locus 07 HISTOTRAC Bw-1 6 HISTOTRAC Bw-2 4 HISTOTRAC Specimen Anatomical Collection Method Collection Time Receive d Time (Source) Location / / Volume Laterality 02/08/2012 7:07 AM 2 8:09 CDT AM CDT Chucho Joshi MD LAB - IMMUNOLOGY ORDERABLES Performing Organization Address City/State/ZIP Code Phon e Number [facility] Immunology/Histocompatabil [place], [place] [address] ity [facility] [address], Room 3-580 HISTOTRAC documented in this encounter Visit Diagnoses Not on filedocumented in this encounter Care Teams Film Cleaner Relationship Specialty Start Date End Date Toña Jones MD PCP - General Nephrology 11/25/11 01/01/14 Ingrid Santana RN Registered Nurse Transplant 02/10/12 10/01/15 documented as of this encounter
--- OUTSIDE RECORDS SUMMARY | 2022-03-30 18:53 | XMS_ITS | Encounter Summary ---
:1950 Author Organization [place] Address [address] [place] [address] Care Team Providers Name Role Phone Toña Jones MD Primary Care Provider Ingrid Santana RN Unavailable Reason for Visit (Routine) - Closed Specialty Diagnoses / Procedures Referred By Contact Refer red To Contact Radiology Diagnoses NM [facility] Procedure Notes: UNSPECIFIED ESSENTIAL HYPERTENSION,PREOPERATIVE EXAMINATION, UNSPECIFIED, [facility] Nuclear [facility] Procedures RADIOLOGY [address] [place] [address] Phone: Referral ID Status Reason Start Date Expiration Date Visits Requ ested Visits Authorized [id number] Closed 02/11/2012 02/10/2013 1 1 Encounter Details Date Type Department Care Team Description 02/15/2012 Hospital Encounter [facility] Barbara Bradley Imaging MD Monae [address] [facility] [address] [place], [place] [address] [phone] Social History Tobacco Use Types Packs/Day Years [...] tablet by mouth 0 02/18/2014 daily. B kzbxrar-R-mclor acid Take 1 capsule by mouth 0 [...] on filedocumented in this encounter Care Teams Retirement Plan Counselor Relationship Specialty Start Date End Date Toña Jones MD PCP - General Nephrology 11/25/11 01/01/14 Ingrid Santana RN Registered Nurse Transplant 02/10/12 10/01/15 documented as of this encounter
--- OUTSIDE RECORDS SUMMARY | 2022-03-30 18:53 | XMS_ITS | Encounter Summary ---
:1950 Author Organization [place] Address [address] [place] [address]. [place] [address] Care Team Providers Name Role Phone Toña Jones MD Primary Care Provider Ingrid Santana RN Unavailable Momo Forbes Primary Care Provider Encounter Details Date Type Department Care Team Description 01/20/2012 Historic Results GH CONVERSION Provider, MD Marcela Social History Tobacco Use Types Packs/Day Years Used Date Never Assessed Sex Assigned at Date Recorded Not on file documented as of this encounter Plan of Treatment Not on filedocumented as of this encounter Procedures Procedure Name Priority Date/Time Associated Diagnosis Comme nts LAB RESULT - HIM SCAN - 01/20/2012 8:26 AM CDT ARCHIVE documented in this encounter Results LAB RESULT - HIM SCAN - ARCHIVE (01/20/2012 8:26 AM CDT) Specimen (Source) Anatomical Location Collection Method / Collectio n Time Received Time / Laterality Volume Narrative This result has an attachment that is no t available. Marcela Cordero MD LAB - BLOOD ORDERABLES documented in this encounter Visit Diagnoses Not on filedocumented in this encounter Care Teams Lion Hunter Relationship Specialty Start Date End Date Toña Jones MD PCP - General Nephrology 11/25/11 01/01/14 Momo Forbes PCP - General Family Practice 01/02/[address] [address] Ingrid Santana, RN Registered Nurse Transplant 02/10/12 10/01/15 documented as of this encounter
--- OUTSIDE RECORDS SUMMARY | 2022-03-30 18:53 | XMS_ITS | Encounter Summary ---
:1950 Author Organization [place] Address [facility] [place] [address] Care Team Providers Name Role Phone Toña Jones MD Primary Care Provider Ingrid Santana RN Unavailable Reason for Visit Reason Comments Heart Problem Consult prior to kidney proctor splant, needs EKG please. Encounter Details Date Type Department Care Team Description 02/10/2012 Office Visit University Barbara Bradley Unspecified es sential hypertension; [facility] [place] Pre-operative clearance Heart [address] [place] [address] [facility] [phone] 4th Floor, Clinic 4B (Work) [address] [address] Social History Tobacco Use Types [...] Sign Reading Time Taken Comments Blood Pressure 182/91 02/10/2012 11:51 AM CDT Pulse 57 02/10/2012 11:51 AM CDT Temperature - - Respiratory Rate - - Oxygen Saturation 98% 02/10/2012 11:51 AM CDT Inhaled Oxygen Concentration - - Weight 123.2 kg (271 lb 8 oz) 02/10/2012 11:51 AM CDT Height 182.9 cm (6') 02/10/2012 11:51 AM CDT Body Mass Index 36.82 02/10/2012 11:51 AM CDT documented in this encounter Patient Instructions Patient InstructionsChristiano Nicole RN - 02/10/2012 12:09 PM CDT You saw Dr Bradley in the cardiovascular clinic today he made the following changes in your plan of care: 1. You need to schedule a stress test. We will Contact you with the results. In the meantime . . . Stay Well and Call Maribel Nicole RN [phone] with any questions or concerns. You are scheduled for an Adenosine Stress Test 02/15/2012: Please check into the [facility] Waiting Room at 12:15pm for this test. Prep: *No food for 3 hours prior to the exam (water and juice are ok). *No Alcohol, tobacco or caffeine for 12 hours prior to the exam. *Check with your diabetes care team to see if you should take 1/2of your insulin the morning of your procedure. If anything happens and you need to reschedule, please call [phone]. January 2012Tuesday 1 2 3 4 5 6 7 8 9 10 11 12 13 14 15 16 17 18 19 [facility] NEW 6:30 AM (30 min.) Evaluation, [facility] The Transplant Center [facility] FULL PULMONARY FUNCTION 8:00 AM (60 min.) 2, [facility] [place] Pulmonary Function Laboratory RADIOLOGY 8:05 AM (10 min.) [email or web address] [facility] Diagnostic Imaging [facility] PREP KIDNEY/PANCREAS [place] 9:00 AM (120 min.) Angela Lopez, [facility], [place], [facility] TRANSPLANT CLASS KIDNEY 9:00 AM (90 min.) Class, [facility] Transplant [facility] Transplant [facility] FLOOR SERVICE WORKER SPRING 11:00 AM (30 min.) Coordinator, [facility] Care [facility] Transplant [facility] PRE-TX KIDNEY EVAL 11:00 AM (30 min.) Donya Thomas MD Transplant Surgery LAB 11:30 AM (15 min.) Queen[place], Op Lab [facility], Lab RADIOLOGY 1:30 PM (55 min.) [email or web address] [facility], Echocardiography 20 21 [facility] RETURN 7:00 AM (15 min.) Evaluation, [facility] Txc [facility] Transplant Center RADIOLOGY 7:00 AM (60 min.) [email or web address] [facility] Diagnostic Imaging CONSULT HOD 8:00 AM (60 min.) Martina Mcneill RD [facility], Nutrition Services [facility] TX SOCIAL WORK 9:00 AM (60 min.) 2, [facility] Tx Consult Room The Transplant Center [facility] PRE-TX KIDNEY EVAL 10:00 AM (60 min.) Joseph Quintana MD Nephrology [facility] PANCREAS-KIDNEY TX W/U 11:30 AM (30 min.) Barbara Bradley MD [facility] Heart 22 23 24 25 26 RADIOLOGY 12:30 PM (15 min.) Uninj [facility], Nuclear Medicine RADIOLOGY 1:15 PM (20 min.) Unr1 [facility], Nuclear Medicine RADIOLOGY 1:40 PM (30 min.) [facility] ELECTROCARDIOLOGY RADIOLOGY 3:10 PM (20 min.) Unr1 [facility], Nuclear Medicine 27 28 29 20 March 2012Tuesday 1 2 3 4 5 6 7 8 9 10 11 12 13 14 15 16 17 18 19 20 21 22 23 24 25 26 27 28 29 30 31 documented in this encounter Progress Notes Barbara Bradley MD - 02/10/2012 11:46 AM CDT HPI: Diego is a 61 year old patient with history of DM, HTN, Hyperlipidemia, 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 DM for 12 years . On insulin for 4 years. ESRD 1 year. On HD since Aug 2011. No past [place], stress tests or coronary angiogorams. No chest pain. Mild dyspnea - chronic. No palpitations or syncope. No f/h of CAD. Smoked 1 - 2 cigars /week for 2 - 3 years PAST MEDICAL HISTORY: Past Medical History Diagnosis Date ??? Diabetes mellitus type II ??? HTN (hypertension) ??? Hyperlipidemia ??? Diabetic peripheral neuropathy 2002 on insulin x 4 years ??? Retinopathy due to secondary diabetes mellitus ??? Gout ??? Anemia ??? Thrombocytopenia ??? Depression ??? Dialysis patient 08/30/2011 CURRENT MEDICATIONS: Current Outpatient Prescriptions Medication Sig ??? amLODIPine (NORVASC) 10 MG tablet Take 10 mg by mouth daily. ??? aspirin 81 MG tablet Take 1 tablet by mouth daily. ??? B iredelv-I-ndyqe acid (NEPHROCAPS) 1 MG capsule Take 1 capsule by mouth daily. ??? carvedilol (COREG) 12.5 MG tablet Take 12.5 mg by mouth 2 times daily (with meals). ??? furosemide (LASIX) 80 MG tablet Take 80 mg by mouth daily. ??? LANTUS VIAL 100 UNITS/ML SC SOLN Inject 40 Units Subcutaneous daily. ??? HumaLOG VIAL 100 UNITS/ML SOLN Inject 3-13 Units Subcutaneous 3 times daily (before meals). ??? LORazepam (ATIVAN) 1 MG tablet Take 1 mg by mouth every 6 hours as needed. ??? sertraline (ZOLOFT) 100 MG tablet Take 100 mg by mouth daily. ??? zolpidem (AMBIEN) 10 MG tablet Take 10 mg by mouth nightly as needed. PAST SURGICAL HISTORY: Past Surgical History Procedure Date ??? 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 Smoking status: Former Smoker -- 5 years Types: Cigars Quit date: 08/22/2006 ??? Smokeless tobacco: Never Used ??? Alcohol Use: 0.0 oz/week 0 drink(s) per week occasional drink. ??? Drug Use: None ??? Sexually Active: None Other Topics Concern ??? Blood Transfusions No ??? Seat Belt Yes Social History Narrative ??? None ROS: Constitutional: No fever, chills, or sweats. No weight gain/loss. ENT: No visual disturbance, ear ache, epistaxis, sore throat. Allergies/Immunologic: Negative. Respiratory: No cough, hemoptysis. Cardiovascular: As per HPI. GI: No nausea, vomiting, hematemesis, melena, or hematochezia. : No urinary frequency, dysuria, or hematuria. Integument: Negative. Psychiatric: Negative. Neuro: Negative. Endocrinology: Negative. Musculoskeletal: No myalgia. VITAL SIGNS: BP 182/91 Pulse 57 Ht 1.829 m (6') Wt 123.152 kg (271 lb 8 oz) BMI 36.82 kg/m2 SpO2 98% Body mass index is 36.82 kg/(m^2). Wt Readings from Last 2 Encounters: 02/10/12 120.203 kg (265 lb) 02/08/12 121 kg (266 lb 12.1 oz) PHYSICAL EXAM Diego Guthrie is a 61 year old male.in no acute distress. HEENT: Unremarkable. Neck: JVP normal. Carotids +4/4 bilaterally without bruits. Lungs: CTA. Cor: RRR. Normal S1 and S2. No murmur, rub, or gallop. PMI in Lf 5th ICS. Abd: Soft, nontender, nondistended. Extremities: No C/C/E. Neuro: Grossly intact. LABS Recent Labs Lab Test 02/08/12 0725 WBC 6.3 HGB 12.0* HCT 36.3* PLT 144* Recent Labs Lab Test 02/08/12 0725 NA 143 POTASSIUM 4.4 CHLORIDE 106 CO2 24 ANIONGAP 13 GLC 126* BUN 32* CR 5.46* ENEDINA 8.5 Recent Labs Lab Test 02/08/12 0725 CHOL 134 HDL 42 LDL 77 TRIG 74 CHOLHDLRATIO 3.2 Procedures: Echo: 02-08-2012 ASSESSMENT AND PLAN: Mr. Guthrie is a 61 yo male with IDDM being evaluated prior to a Tx. No past history of CAD. Echo shows normal LV function. EKG normal. Cardiac exam is benign. Recommend : Adenosine Thallium stress test. FOLLOW UP: As needed Addendum ( 04/27/2012 ) : The patient had nuclear stress test on 02/15/2012. This showed no inducible ischemia. The patient is at a low risk of a perioperative adverse cardiac event at surgery. Perez MD ruling machine set up operator. Divisions of Cardiology [facility] Patient Care Team: Toña Jones MD as PCP - General (Nephrology) Ingrid Santana RN as Registered Nurse (Transplant) DONYA THOMAS documented in this encounter Plan of Treatment Not on filedocumented as of this encounter Visit Diagnoses Diagnosis Unspecified essential hypertension Pre-operative clearance Preoperative examination, unspecified documented in this encounter Care Teams Process Coach Relationship Specialty Start Date End Date Toña Jones MD PCP - General Nephrology 11/25/11 01/01/14 Ingrid Santana RN Registered Nurse Transplant 02/10/12 10/01/15 documented as of this encounter
--- OUTSIDE RECORDS SUMMARY | 2022-03-30 18:53 | XMS_ITS | Encounter Summary ---
:1950 Author Organization [place] Address [facility] [place] [address] Care Team Providers Name Role Phone Toña Jones MD Primary Care Provider Ingrid Santana RN Unavailable Reason for Visit Reason Comments Social Work Services Encounter Details Date Type Department Care Team Description 02/10/2012 Office Visit The Transplant Akanksha Stacy Organ transplant 2nd Floor, Clinic 2A SHALOM Zacarias [facility] [address] [phone] Social History Tobacco Use Types Packs/Day Years [...] documented as of this encounter Progress Notes Akanksha Lora MSW - 02/11/2012 10:24 AM CDT Psychosocial Assessment Patient Name/ Age: Diego Guthrie 61 year old Duration of Interview: 40 min Process: Rwrt-nm-Gmzk Interview (counseling < 50%) Present at Appointment: Latrell, his brother Kiran and Latrell Zamora, Transplant Financial Curriculum And Instruction DirectorPower Supply Engineer Worker: CECY Ortiz, [facility] Date: February 10, 2012 Type of transplant: Kidney Donor type: Latrell indicated that he does not know of any potential donors at this time. Cadaver Prior Transplants: No Status of Transplant: Current Living Situation Location: [address] [place] [phone] With Whom: Alone Family/ Social Support: Kiran lives in [place], [place]. Available, helpful Committed relationship: Latrell indicated that he does not have any children, is currently not in any relationship, is and does not consider his ex- a part of his support system. None available Other supports: Friends Available, helpful Activities/ Functional Ability Current level: Latrell wears corrective lenses. Ambulatory, visually impaired and independent with ADL's Transportation Drives self Vocational/Employment/Financial Employment Unemployed Job Description Income Savings Insurance Latrell has BC/BS through [employer] formerly [employer] until 07/22/13. He has also applied for ESRD Medicare eligibility based on dialysis. At this time, patient can afford medication costs: Yes Private insurance and Medicare Medical Status Current mode of treatment for ESRD Dialysis Complications Neuropathy Behavioral Tobacco Use No Chemical Dependency No Latrell indicated that he quit smoking cigars years ago. Psychiatric Impairment No Reading ability Good Education level: High School and some vocational school. Recent Legal History No Coping Style/Strategies: Latrell indicated that when under stress he will relax. Ability to Adhere to Complex Medical Regime: Yes Adherence History: Latrell indicated that he will usually follow his physician's recommendations. Education _X_ Medicare _X_ Rehabilitation _X_ Donor issues _X_ Community resources _X_ Post discharge housing _X_ Financial resources _X_ Medical insurance options _X_ Psych adjustment _X_ Family adjustment _X_ Health Care Directive - Latrell indicated that he has a completed Health Care Directive and will provide a copy at a later date. Psychosocial Risks of Transplant Reviewed and Discussed: _X_ Increased stress related to emotional, family, social, employment or financial situation _X_ Affect on work and/or disability benefits _X_ Affect on future health and life insurance _X_ Transplant outcome expectations may not be met _X_ Mental Health Risks: anxiety, depression, PTSD, guilt, grief and chronic fatigue Notable Items: Provided Latrell with brochures from two organizations that assist with fund raising. Discussed asking studio set up worker for assistance with cobra premiums and that Latrell needs to apply for a Part D policy. Final Evaluation/Assessment Patient seemed to process information well. Appeared well informed, motivated and able to follow post transplant requirements. Behavior was appropriate during interview. Has adequate income and insurance coverage. Adequate social support. No major contraindications noted for transplant. At this time patient appears to understand the risks and benefits of transplant. Recommendation Acceptable Selection Criteria Met: Plan for support Yes Chemical Dependence No Smoking No Mental Health No Adequate Finances Yes Signature: CECY Ortiz, [facility] Title: Clinical Java Xml Developer documented in this encounter Plan of Treatment Not on filedocumented as of this encounter Visit Diagnoses Diagnosis Organ transplant candidate - Primary Awaiting organ transplant status documented in this encounter Care Teams Rn Rehab Relationship Specialty Start Date End Date Toña Jones MD PCP - General Nephrology 11/25/11 01/01/14 Ingrid Santana RN Registered Nurse Transplant 02/10/12 10/01/15 documented as of this encounter
--- OUTSIDE RECORDS SUMMARY | 2022-03-30 18:53 | XMS_ITS | Encounter Summary ---
:1950 Author Organization [place] Address [address] [facility] [place] [address] Care Team Providers Name Role Phone Toña Jones MD Primary Care Provider Ingrid Santana RN Unavailable Encounter Details Date Type Department Care Team Description 02/08/2012 Results Only LABORATORY RESULTS [facility]hi MD [facility] [facility] [address] [place] [address] (Wo rk) Social History Tobacco [...] Name Priority Date/Time Associated Diagnosis Comme nts HLA-DR/DQ TYPING Routine 02/08/2012 7:07 AM Resul ts for this PCR/SSOP CDT procedure are i n the results section. documented in this encounter Results HLA-DR/DQ Typing pcr/ssop (02/08/2012 7:07 AM CDT) athologist Signature Drsso Test SSOP HISTOTRAC Method DRB1* locus 11 HISTOTRAC DRB1* 15 HISTOTRAC DRB3* locus 02 HISTOTRAC DRB5* 01 HISTOTRAC DQB1* locus 03(07) HISTOTRAC DQB1* 06 HISTOTRAC DQA1*locus 01 HISTOTRAC DQA1* 05 HISTOTRAC Specimen Anatomical Collection Method Collection Time Receive d Time (Source) Location / / Volume Laterality 02/08/2012 7:07 AM 2 8:09 CDT AM CDT Chucho Joshi MD LAB - IMMUNOLOGY ORDERABLES Performing Organization Address City/State/[facility] Code Phon e Number [facility] Immunology/Histocompatabil [place], [place] [phone] ity [facility] [address] [facility] [address] Building, Room 3-580 HISTOTRAC documented in this encounter Visit Diagnoses Not on filedocumented in this encounter Care Teams Bottle Line Worker Relationship Specialty Start Date End Date Toña Jones MD PCP - General Nephrology 11/25/11 01/01/14 Ingrid Santana RN Registered Nurse Transplant 02/10/12 10/01/15 documented as of this encounter
--- OUTSIDE RECORDS SUMMARY | 2022-03-30 18:53 | XMS_ITS | Encounter Summary ---
:1950 Author Organization [place] Address [address] [facility] [place] [address] Care Team Providers Name Role Phone Toña Jones MD Primary Care Provider Ingrid Santana RN Unavailable Encounter Details Date Type Department Care Team Description 02/10/2012 Hospital Encounter [facility] [place] Jesus Cardenas MD Nutrition Services Martina Harley, RD [address] [facility] [address] [place] [address] [address] [facility] Joseph Quintana MD [address] [facility] [address] [facility] [address] [place] [address] 84 [place] [address] Social History Tobacco Use Types Packs/Day Years [...] tablet by mouth 0 02/18/2014 daily. B zsfwhjr-G-iruma acid Take 1 capsule by mouth 0 [...] documented as of this encounter Progress Notes Martina Mcneill, RD - 02/10/2012 8:47 AM CDT [facility] Medical Nutrition Therapy Visit Type: Initial Assessment Diego Guthrie referred by Dr. Joshi for MNT related to pre-kidney transplant evaluation. Patient accompanied by himself. Nutrition Assessment: Anthropometrics Height: . 72in BMI: 36 Class 1 obesity Weight: 266 lbs IBW (lb): 180 147% IBW Adj BW: 209 lb (92kg) A1C 5.3 02/08/2012 Noted Meds: Insulin -sliding scale PhosLo Nutrition History Latrell states that he follows a general diet, however, does keep in mind to limit his phos intake and increase his protein intake per HD instructions. He states that per HD, his phos has been creeping up,thus increasing his phosLo to 2 capsules vs 1 capsule per meal as needed. He expresses difficulty with weight loss d/t increased protein intake. He notes that he will take insulin sliding scale per what he eats or adjusts according to his blood sugars. He notes that his blood glucose typically ranges from 110-130. Recall: B:Skip or cereal with milk or egg Mcmuffin L:Soup and 1/2 sandwich with luncheon meat or salad with protein source D:Larger meal - 5-7 oz meat, 1 cup grains and vegetable Sn:none Drinks:2 diet MtDews per day, 2 cups water Nutrition Prescription Energy: 1800kcals/day (20kcal/kg Adj BW for desired wt loss) Protein: 110-128g/day (1.2-1.4g/kg increased needs for HD) Fluid: <4 cups per day per HD Micronutrient: Na <2000mg/day Nutrition Diagnosis: Food and nutrition related knowledge deficit r/t pre kidney transplant eval pt AEB pt verbalized nothearing pre/post transplant diet guidelines Nutrition Intervention/Nutrition education provided: Reviewed protein needs d/t HD. Encouraged him to consume lean source protein such as chicken and fish and less beef for lower calories. Discussed diet modifications to promote weight loss- portion control and meal consistency (avoidance of skipping breakfast). Reviewed sodium, potassium and phosphorus guidelines. Provided pt with 'Controlling Potassium intakeand Controlling phosphorus intake and Tips to decrease sodium intake'. Reviewed post tx diet guidelines- med regimen and possible side effects, following a low sat/trans fat, low sodium, low simple CHO, high protein and calcium diet, K levels post-tx; avoiding excessive weight gain, adequate exercise, and review of proper food safety measures d/t immunosuppressant therapy post-op. Discussed avoidance of shellfish/seafood (cooked or raw) for 3 weeks s/p transplant d/t potential food-borne illnesses in addition to vibrio. Pt verbalized understanding of education provided. Expected diet compliance: good Nutrition Goals: 1. Weight loss - goal 250 lb for BMI <34 2. Aim for 100g protein daily with HD 3. Limit sodium intake to <2000mg/day; Limit high phos containing foods. Time spent with patient: [address], LD documented in this encounter Plan of Treatment Not on filedocumented as of this encounter Visit Diagnoses Not on filedocumented in this encounter Care Teams Feed Mill Tender Relationship Specialty Start Date End Date Toña Jones MD PCP - General Nephrology 11/25/11 01/01/14 Ingrid Santana RN Registered Nurse Transplant 02/10/12 10/01/15 documented as of this encounter
--- OUTSIDE RECORDS SUMMARY | 2022-03-30 18:53 | XMS_ITS | Encounter Summary ---
:1950 Author Organization [place] Address [address] [facility] [place] [address] Care Team Providers Name Role Phone Toña Jones MD Primary Care Provider Ingrid Santana RN Unavailable Encounter Details Date Type Department Care Team Description 02/10/2012 Orders Only [facility] Anita Joshi MD Diabetes mellitus, type 2 (H); Clinic Imaging [address] [facility] [place] End stage renal disease (H) [place] [address] [place], [place] 1st Floor, Clinic [address] [place] [address] [phone] Social History Tobacco Use Types [...] Date/Time Associated Diagnosis Comme nts US RENAL COMPLETE Routine 02/10/2012 7:22 AM Diabetes mellitus , Results for this CDT type 2 (H) procedure are in End stage renal the results disease (H) section. documented in this encounter Results US Retroperitoneal complete (02/10/2012 7:22 AM CDT) Anatomical Region Laterality Modality Abdomen/Pelvis Ultrasound Specimen (Source) Anatomical Collection Method Collection Time Re ceived Time Location / / Volume Laterality 02/10/2012 7:22 AM CDT Impressions 02/10/2012 9:21 AM CDT EXAM: ?Aortic ultrasound 02/10/2012 HISTORY: ?Risk factors for AAA COMPARISON: ?None FINDINGS: ?The proximal aorta measur es 2.4 cm, the mid aorta measures 2.2 centimeters in the distal a kiki measures 2.0 cm. The right common iliac artery measures 1.3 c m and the left common iliac artery measures 1.1 cm IMPRESSION: ?No abdominal aortic ane urysm. I have personally reviewed the image and initial interpretation, and I agree with findings. Chucho Joshi MD IMG US ORDERABLES documented in this encounter Visit Diagnoses Diagnosis Diabetes mellitus, type 2 (H) Type II or unspecified type diabetes aung litus without mention of complication, not stated as uncontrolled End stage renal disease (H) End stage renal disease documented in this encounter Care Teams Vault Service Mechanic Relationship Specialty Start Date End Date Toña Jones MD PCP - General Nephrology 11/25/11 01/01/14 Ingrid Santana RN Registered Nurse Transplant 02/10/12 10/01/15 documented as of this encounter
--- OUTSIDE RECORDS SUMMARY | 2022-03-30 18:53 | XMS_ITS | Encounter Summary ---
:1950 Author Organization [place] Address [address] [place] [address]. [place] [address] Care Team Providers Name Role Phone Toña Jones MD Primary Care Provider Ingrid Santana RN Unavailable Momo Forbes Primary Care Provider Encounter Details Date Type Department Care Team Description 02/18/2012 Abstract [facility] 2[facility], Clinic 2A [place] [phone] Social History Tobacco Use Types Packs/Day [...] on filedocumented in this encounter Care Teams Conformal Pad Former Relationship Specialty Start Date End Date Toña Jones MD PCP - General Nephrology 11/25/11 01/01/14 Momo Forbes PCP - General Family Practice 01/02/[address] [place] [address] Ingrid Santana RN Registered Nurse Transplant 02/10/12 10/01/15 documented as of this encounter
--- OUTSIDE RECORDS SUMMARY | 2022-03-30 18:53 | XMS_ITS | Encounter Summary ---
:1950 Author Organization [place] Address [facility]0 [facility] [place] [address] Care Team Providers Name Role Phone Toña Jones MD Primary Care Provider Ingrid Santana RN Unavailable Reason for Visit (Routine) - Closed Specialty Diagnoses / Procedures Referred By Contact Refer red To Contact Cardiology Diagnoses NM STRESS LEXISCAN Procedure Notes: UNSPECIFIED ESSENTIAL HYPERTENSION,PREOPERATIVE EXAMINATION, UNSPECIFIED, Zz Uu Electrocard Procedures RADIOLOGY [address] [place] [address] Referral ID Status Reason Start Date Expiration Date Visits Requ ested Visits Authorized [id number] Closed 02/11/2012 02/10/2013 1 1 Encounter Details Date Type Department Care Team Description 02/15/2012 Hospital Encounter ZSarah UU ELECTROCARD [place], [place] [address] [facility] [place] [place] [address] [address] [place], [place] [address] Social History Tobacco Use [...] tablet by mouth 0 02/18/2014 daily. B rypfqzg-H-gwedi acid Take 1 capsule by mouth 0 [...] documented as of this encounter Progress Notes Florin Brasher - 03/06/2012 10:15 PM CDTEncounter addended by: Florin Brasher on: 03/06/2012 10:15 PM
Documentation filed: PRL Based Order Sets, Scan, Result Entry, Orders documented in this encounter Plan of Treatment Not on filedocumented as of this encounter Procedures Procedure Name Priority Date/Time Associated Diagnosis Comme nts HIM ECG SCAN Routine 02/15/2012 documented in this encounter Results STRESS TEST - HIM ECG Scan (02/15/2012) Narrative This result has an attachment that is no t available. Barbara Bradley MD ECG ORDERABLES documented in this encounter Visit Diagnoses Not on filedocumented in this encounter Administered Medications Inactive Administered Medications - up to 3 most recent administrations Medication Order MAR Action Action Date Dose Rate Site regadenoson (LEXISCAN) injection Given 02/15/2012 2:42 PM CDT 0. 4 mg 0.4 mg 0.4 mg, Intravenous, ONCE, On Tue02/15/12 at 1445, For 1 dose, Administer for NM Lexiscan Stress Test documented in this encounter Care Teams Fabric Inspector Relationship Specialty Start Date End Date Toña Jones MD PCP - General Nephrology 11/25/11 01/01/14 Ingrid Santana RN Registered Nurse Transplant 02/10/12 10/01/15 documented as of this encounter
--- OUTSIDE RECORDS SUMMARY | 2022-03-30 18:53 | XMS_ITS | Encounter Summary ---
:1950 Author Organization [place] Address [address] [place] [address] Care Team Providers Name Role Phone Toña Jones MD Primary Care Provider Ingrid Santana RN Unavailable Reason for Visit (Routine) - Closed Specialty Diagnoses / Procedures Referred By Contact Refer red To Contact Radiology Diagnoses NM MPI SCAN Procedure Notes: UNSPECIFIED ESSENTIAL HYPERTENSION,PREOPERATIVE EXAMINATION, UNSPECIFIED, Uu Nuclear Medicine Procedures RADIOLOGY [address] [place] [address] Phone: Referral ID Status Reason Start Date Expiration Date Visits Requ ested Visits Authorized [id number] Closed 02/11/2012 02/10/2013 1 1 Encounter Details Date Type Department Care Team Description 02/15/2012 Hospital Encounter [facility] Barbara Bradley ESRD (end stage [facility] MD Monae renal disease) (H) [address] [facility] [address] [place] [address] [phone] Social History Tobacco Use Types Packs/Day Years [...] tablet by mouth 0 02/18/2014 daily. B xjshnnc-D-uaccr acid Take 1 capsule by mouth 0 [...] Diagnoses Diagnosis ESRD (end stage renal disease) (H) End stage renal disease documented in this encounter Care Teams Night Clerk Relationship Specialty Start Date End Date Toña Jones MD PCP - General Nephrology 11/25/11 01/01/14 Ingrid Santana RN Registered Nurse Transplant 02/10/12 10/01/15 documented as of this encounter
--- OUTSIDE RECORDS SUMMARY | 2022-03-30 18:53 | XMS_ITS | Encounter Summary ---
:1950 Author Organization [place] Address [address] [place] [address] Care Team Providers Name Role Phone Toña Jones MD Primary Care Provider Reason for Visit (Routine) - Closed Specialty Diagnoses / Procedures Referred By Contact Refer red To Contact Cardiology Diagnoses ECHO CLINIC COMPLETE ADULT Procedure Notes: DIABETES MELLITUS, TYPE 2,END STAGE RENAL DISEASE,Transplant eval,Performing Location?->[facility] Echocardiography Procedures RADIOLOGY [address] [place] [address] Phone: Referral ID Status Reason Start Date Expiration Date Visits Requ ested Visits Authorized [id number] Closed 01/21/2012 01/20/2013 1 1 Encounter Details Date Type Department Care Team Description 02/08/2012 Hospital Encounter [facility], [place], Jeff Joshi MD [address] [facility] [address] [place] [address] Diabetes mellitus, type 2 (H); Echocardiography Rajat German MD [address] [facility] [address] [place] [address] End stage renal disease (H) [address] [place] [address] Social History Tobacco Use Types [...] Sig Dispensed Refills Start Date End Date HumaLOG VIAL 100 Inject 20-40 Units 0 UNITS/ML SOLN Subcutaneous 3 times daily (before meals) Patient reported his dose 10-12 unit 2-3 times daily before meals LANTUS VIAL 100 Inject 50 Units 0 UNITS/ML SC SOLN Subcutaneous every evening amLODIPine (NORVASC) Take 10 mg by mouth 0 02/10/2012 10 MG tablet daily. aspirin 81 MG tablet Take 1 tablet by mouth 0 02/18/2014 daily. B epdkaeh-U-cbrqz acid Take 1 capsule by mouth 0 02/08/2014 (NEPHROCAPS) 1 MG daily. capsule carvedilol (COREG) Take 12.5 mg by mouth 2 0 02/10/2012 12.5 MG tablet times daily (with meals). furosemide (LASIX) 80 Take 80 mg by mouth 0 02/10/2012 MG tablet daily. LORazepam (ATIVAN) 1 Take 1 mg by mouth 0 02/10/2012 MG tablet every 6 hours as needed. sertraline (ZOLOFT) Take 100 mg by mouth 0 04/20/2016 100 MG tablet daily. zolpidem (AMBIEN) 10 Take 10 mg by mouth 0 03/06/2014 MG tablet nightly as needed Per patient on hold documented as of this encounter Plan of Treatment Not on filedocumented as of this encounter Procedures Procedure Name Priority Date/Time Associated Diagnosis Comme nts ECHO COMPLETE Routine 02/08/2012 1:13 PM Diabetes mellitus, Re sults for this CLINIC CDT type 2 (H) procedure are in End stage renal the results disease (H) section. documented in this encounter Results Echo Complete - Clinic (PWB) (02/08/2012 1:13 PM CDT) [facility] Method Time Signature [facility] RADIOLOGY Interpretation Summary RESULTS No significant valvular abnormalities were noted. Mild to moderate concentric wall thickening consistent with left ventricular hypertrophy is present. Global and regional left ventricular function is normal with an EF of 55-60%. Grade II of diastol ic dysfunction ( pseudonormal pattern) Right ventricular function, chamber siz e, wall motion, and thickness are normal. Pulmonary artery systolic pressure cannot be ass essed. The inferior vena cava ??is normal. No pericardial effusion is p resent. PatientHeight: 72 in PatientWeight: 265 lbs SystolicPressure: 176 mmHg DiastolicPressure: 87 mmHg BSA 2.4 m^2 Procedure Echocardiogram with two-dimensional, color and spectral Dopp ler performed. Adequate quality two-dimensional was performed and interpret ed. Good quality color and spectral Doppler were performed and i nterpreted. Left Ventricle Left ventricular size is normal. Global and regional left ventricular function is normal with an EF of 55-60%. Mild to moderate concentric wall thickening consistent with left ventricular hypertrophy is present. Grade II of diastolic dysfunction ( pseudonormal pattern). No regional wall motion abnormalities are seen. Right Ventricle Right ventricular function, chamber size, wall motion, and t hickness are normal. Atria The right atria appears normal. Moderate left atrial enlargement is present. Mitral Valve Moderate mitral annular calcification is present. Mild mitral insufficiency is present. Aortic Valve The aortic valve is tricuspid. Trace aortic insufficiency is present. Tricuspid Valve The tricuspid valve is normal. Trace tricuspid insufficiency is present. The peak velocity of the tricuspid regurgitant jet is not ob tainable. Pulmonary artery systolic pressure cannot be assessed. Pulmonic Valve The pulmonic valve cannot be assessed. Vessels The inferior vena cava ??is normal. The aorta root is normal. Pericardium [...] P.0 mmHg Ao V2 VTI: 49 cm Interpreting Physician: ??Norma Trevino MD electronically signed on 02-08-2012 16:55:56 Anatomical Region Laterality Modality Echocardiography Specimen (Source) Anatomical Collection Method Collection Time Re ceived Time Location / / Volume Laterality 02/08/2012 1:13 PM CDT Chucho Joshi MD CV ECHO ORDERABLES documented in this encounter Visit Diagnoses Diagnosis Diabetes mellitus, type 2 (H) Type II or unspecified type diabetes aung litus without mention of complication, not stated as uncontrolled End stage renal disease (H) End stage renal disease documented in this encounter Care Teams Public Safety Police Relationship Specialty Start Date End Date Toña Jones MD PCP - General Nephrology 11/25/11 01/01/14 documented as of this encounter
--- OUTSIDE RECORDS SUMMARY | 2022-03-30 18:53 | XMS_ITS | Encounter Summary ---
:1950 Author Organization [place] Address [facility] [place] [address] Care Team Providers Name Role Phone Toña Jones MD Primary Care Provider Reason for Visit Reason Onset Date Comments Pre Visit Planning - Done 02/07/2012 Consult prior to kidney transplant, needs EKG please. Encounter Details Date Type Department Care Team Description 02/07/2012 PRE VISIT [facility] Barbara Bradley Pre Visit Planning - Physicians Heart MD Monae Done (Consult prior to [facility] Wangensteen [address] kidney transplant, [place] [address] needs EKG please.) 4th Floor, Clinic [address] [phone] Social History Tobacco Use Types Packs/Day Years Used Date Former Smoker Cigarettes, Cigars Quit: Smokeless Tobacco: Never Used Alcohol Use Standard Drinks/Week Comments Not Asked 0 (1 standard drink = 0.6 oz pure alcoho l) Sex Assigned at Date Recorded Not on file documented as of this encounter Miscellaneous Notes Telephone Encounter - Alisson Covington RN - 02/07/2012 12:58 PM CDT HPI: Diego is a 61 year old patient with history of DM, HTN, Hyperlipidemia, here for consult prior to kidney transplant. Procedures: Echo: 02-08-2012 documented in this encounter Plan of Treatment Not on filedocumented as of this encounter Visit Diagnoses Not on filedocumented in this encounter Care Teams Construction Operations Manager Relationship Specialty Start Date End Date Toña Jones MD PCP - General Nephrology 11/25/11 01/01/14 documented as of this encounter
--- OUTSIDE RECORDS SUMMARY | 2022-03-30 18:53 | XMS_ITS | Encounter Summary ---
:1950 Author Organization [place] Address [address] [facility] [place] [address] Care Team Providers Name Role Phone Toña Jones MD Primary Care Provider Encounter Details Date Type Department Care Team Description 02/08/2012 Hospital Encounter [facility] Jesus Cardenas MD Patient Learning Bobby Angela Leon, BOGDAN [address] [facility] [address] [place], [place] [id number] [address] [place] [address] Social History Tobacco Use Types Packs/Day Years [...] tablet by mouth 0 02/18/2014 daily. B [id number] acid Take 1 capsule by mouth 0 [...] documented as of this encounter Progress Notes Angela Lopez RN - 02/08/2012 3:17 PM CDT Patient alone to class. Received all teaching material relevant to class content. Appeared to doze of and on throughout class. States he is does not sleep well. Answered quiz questions appropriately. States he understands all information presented. documented in this encounter Plan of Treatment Not on filedocumented as of this encounter Visit Diagnoses Not on filedocumented in this encounter Care Teams Stitcher Feeder Relationship Specialty Start Date End Date Toña Jones MD PCP - General Nephrology 11/25/11 01/01/14 documented as of this encounter
--- OUTSIDE RECORDS SUMMARY | 2022-03-30 18:53 | XMS_ITS | Encounter Summary ---
:1950 Author Organization [place] Address [facility] [place] [address] Care Team Providers Name Role Phone Toña Jones MD Primary Care Provider Reason for Visit Reason Onset Date Comments Patient Reminder 02/01/2012 Encounter Details Date Type Department Care Team Description 02/01/2012 PRE VISIT Nephrology Joseph Quintana, Patient Reminder 2nd Floor, Clinic 2A MD Tommy Guillermo[address] [place], [place] [address] [place] [address] (Wo rk) [phone] Social History Tobacco Use Types Packs/Day Years Used Date Never Assessed Sex Assigned at Date Recorded Not on file documented as of this encounter Miscellaneous Notes Telephone Encounter - Sharon Lynne RN - 02/01/2012 1:41 PM CDT Patient contacted and reminded of Kidney Transplant Evaluation starting 02/08/12. Patient reminded to arrive fasting and to bring updated medication list. Pateint stated understanding. documented in this encounter Plan of Treatment Not on filedocumented as of this encounter Visit Diagnoses Not on filedocumented in this encounter Care Teams Package Worker Relationship Specialty Start Date End Date Toña Jones MD PCP - General Nephrology 11/25/11 01/01/14 documented as of this encounter
--- OUTSIDE RECORDS SUMMARY | 2022-03-30 18:53 | XMS_ITS | Encounter Summary ---
:1950 Author Organization [place] Address [address] [place] [address] Care Team Providers Name Role Phone Toña Jones MD Primary Care Provider Ingrid Santana RN Unavailable Encounter Details Date Type Department Care Team Description 04/13/2012 Results Only LABORATORY RESULTS Mingo Dangelo MD [address] [facility] [address] [place] [address] (Wo rk) Social History Tobacco [...] Comme nts HLA LUKASZ CLASS II Routine 04/13/2012 Results for this SINGLE ANTIGEN procedure are in the results section . documented in this encounter Results HLA Lukasz Class II Single Antigen (04/13/2012) [facility] Method Time Signature SA2 Test Single [...] Immunology/Histocompatabil [place], [place] [address] ity [facility] [address], Room 3-580 HISTOTRAC documented in this encounter Visit Diagnoses Not on filedocumented in this encounter Care Teams Air Conditioning Mechanic Industrial Relationship Specialty Start Date End Date Toña Jones MD PCP - General Nephrology 11/25/11 01/01/14 Ingrid Santana RN Registered Nurse Transplant 02/10/12 10/01/15 documented as of this encounter
--- OUTSIDE RECORDS SUMMARY | 2022-03-30 18:53 | XMS_ITS | Encounter Summary ---
:1950 Author Organization [place] Address [facility] [place] [address] Care Team Providers Name Role Phone Toña Jones MD Primary Care Provider Ingrid Santana RN Unavailable Reason for Visit Reason Comments Transplant Evaluation Kidney transplant evaluation - chronic kidney disease Encounter Details Date Type Department Care Team Description 02/10/2012 Office Visit The Transplant Edda Cardenas, Ty Blink, DM (diabetes 2nd Floor, Clinic 2A MD mellitus), type 2 (H) Tommy Wilburn (Primar y Dx) [address] [address] Social History Tobacco Use Types [...] documented as of this encounter Progress Notes Rafaela Krause RN - 02/10/2012 9:05 AM CDT Continuing kidney transplant evaluation patient. Patient is alert, oriented and ambulatory. Patient is here with his brother. Schedule reviewed. Patient independent in attending scheduled appointments. Adenosine stress test ordered and scheduled by cardiology for 02/15/12 - patient aware. All other labs, procedures, consults and immunizations were completed as ordered for evaluation. No further questions at this time. Patient to follow up with emergency medical service coordinator. documented in this encounter Plan of Treatment Not on filedocumented as of this encounter Visit Diagnoses Diagnosis DM (diabetes mellitus), type 2 (H) - Ana ashley Type II or unspecified type diabetes aung litus without mention of complication, not stated as uncontrolled documented in this encounter Care Teams Collector Relationship Specialty Start Date End Date Toña Jones MD PCP - General Nephrology 11/25/11 01/01/14 Ingrid Santana RN Registered Nurse Transplant 02/10/12 10/01/15 documented as of this encounter
--- OUTSIDE RECORDS SUMMARY | 2022-03-30 18:53 | XMS_ITS | Encounter Summary ---
:1950 Author Organization [place] Address [address] [place] [address] Care Team Providers Name Role Phone Toña Jones MD Primary Care Provider Ingrid Santana RN Unavailable Encounter Details Date Type Department Care Team Description 02/08/2012 Orders Only [facility] Jesus Cardenas Di abetes mellitus, type 2 (H); [facility] Gordo oneal MD End stage renal disease (H); [address] [place] [address] Social History Tobacco Use Types Packs/Day Years [...] documented as of this encounter Progress Notes Katarina Jauregui - 02/17/2012 11:14 PM CDT Addended by: KATARINA JAUREGUI on: 02/17/2012 11:14 PM Modules accepted: Orders, SmartSet documented in this encounter Plan of Treatment Not on filedocumented as of this encounter Procedures Procedure Name Priority Date/Time Associated Diagnosis Comme nts ABO TYPE Routine 02/08/2012 1:52 PM Diabetes mellitus, Res ults for this CDT type 2 (H) procedure are in End stage renal the results disease (H) section. EKG 12-LEAD, Routine 02/08/2012 7:30 AM Results f or this TRACING ONLY CDT procedure are i n the results section. HIM ECG SCAN Routine 02/08/2012 7:30 AM DIAGNOSIS NOT YET CDT DEFINED documented in this encounter Results ABO type (02/08/2012 1:52 PM CDT) [facility] Method Time Signature ABO A [facility] RH(D) Pos [facility] Specimen 02/11/2012 [facility] Anatomical Collection Method Collection Time Receive d Time (Source) Location / / Volume Laterality Blood specimen 02/08/2012 1:52 PM 012 1:54 (specimen) CDT PM CDT Chucho Joshi MD LAB - BLOOD BANK TEST ORDER Performing Organization Address City/[facility]/ZIP Code Phon e Number [address] LABS EKG 12-lead, tracing only (02/08/2012 7:30 AM CDT) [facility] Method Time Signature Ventricular Rate 60 BPM RADIOLOGY RESULTS Atrial Rate 60 BPM RADIOLOGY RESULTS [place] Interval 186 ms RADIOLOGY RESULTS QRS Duration 104 ms RADIOLOGY RESULTS QT 440 ms RADIOLOGY RESULTS QTc 440 ms RADIOLOGY RESULTS P [place] 36 degrees RADIOLOGY RESULTS R AXIS 0 degrees RADIOLOGY RESULTS T [place] 36 degrees RADIOLOGY RESULTS Interpretation Sinus rhythm RADIOLOGY ECG RESULTS Interpretation Normal ECG RADIOLOGY ECG RESULTS Interpretation No previous RADIOLOGY ECG ECGs RESULTS available Specimen (Source) Anatomical Collection Method Collection Time Re ceived Time Location / / Volume Laterality 02/08/2012 7:30 AM CDT Doctor Kelly MICHELE ECG ORDERABLES Performing Organization Address City/State/ZIP Code Phon e Number RADIOLOGY RESULTS EKG - HIM ECG Scan (02/08/2012 7:30 AM CDT) Narrative This result has an attachment that is no t available. Jesus Cardenas MD ECG ORDERABLES documented in this encounter Visit Diagnoses Diagnosis Diabetes mellitus, type 2 (H) Type II or unspecified type diabetes anug litus without mention of complication, not stated as uncontrolled End stage renal disease (H) End stage renal disease DIAGNOSIS NOT YET DEFINED documented in this encounter Care Teams Legal Executive Relationship Specialty Start Date End Date Toña Jones MD PCP - General Nephrology 11/25/11 01/01/14 Ingrid Santana, RN Registered Nurse Transplant 02/10/12 10/01/15 documented as of this encounter
--- OUTSIDE RECORDS SUMMARY | 2022-03-30 18:53 | XMS_ITS | Encounter Summary ---
:1950 Author Organization [place] Address [address] [place] [address] Care Team Providers Name Role Phone Toña Jones MD Primary Care Provider Ingrid Santana RN Unavailable Encounter Details Date Type Department Care Team Description 02/08/2012 Results Only LABORATORY RESULTS Jeff Joshi MD [address] [facility] [address] [place] [address] (Wo rk) Social History Tobacco [...] Comme nts HLA LUKASZ CLASS I Routine 02/08/2012 7:07 AM Result s for this SINGLE ANTIGEN CDT procedure are in the results section. documented in this encounter Results HLA Lukasz Class I Single Antigen (02/08/2012 7:07 AM CDT) [facility] Method Time Signature SA1 Test Single Antigen HISTOTRAC Method SA1 Cell Class I HISTOTRAC SA1 PRA %POS 1 HISTOTRAC SA1 Hi Risk None HISTOTRAC Lukasz SA1 Mod Risk A:43 HISTOTRAC Lukasz SA1 Comments High-risk, mfi >3,000. Mod-r isk, mfi 500-3,000. Predictive PRA derived HISTOTRAC from local donor pool. Specimen Anatomical Collection Method Collection Time Receive d Time (Source) Location / / Volume Laterality 02/08/2012 7:07 AM 2 8:09 CDT AM CDT Chucho Joshi MD LAB - IMMUNOLOGY ORDERABLES Performing Organization Address City/State/ZIP Code Phon e Number [facility] Immunology/Histocompatabil [place], [place] [address] ity [facility] [address] [facility] [address] Building, Room 3-580 HISTOTRAC documented in this encounter Visit Diagnoses Not on filedocumented in this encounter Care Teams Well Drill Operator Helper Cable Tool Relationship Specialty Start Date End Date Toña Jones MD PCP - General Nephrology 11/25/11 01/01/14 Ingrid Santana, RN Registered Nurse Transplant 02/10/12 10/01/15 documented as of this encounter
--- OUTSIDE RECORDS SUMMARY | 2022-03-30 18:53 | XMS_ITS | Encounter Summary ---
:1950 Author Organization [place] Address [facility] [place] [address] Care Team Providers Name Role Phone Toña Jones MD Primary Care Provider Ingrid Santana RN Unavailable Reason for Visit Reason Comments Transplant Evaluation kidney Encounter Details Date Type Department Care Team Description 02/10/2012 Office Visit Nephrology Darian Joshi MD [address] [place] [address] [phone] Pre-transplant 2nd Floor, Clinic 2A Joseph Quintana MD [address] [facility] [address] [facility] [address] [place] [address] evaluation for Tommy Wilburn chronic kidney Building disease (Primary Dx) [address] [place] [address] Social History Tobacco Use Types [...] Sign Reading Time Taken Comments Blood Pressure - - Pulse 60 02/10/2012 9:51 AM CDT Temperature 36.9 ??C (98.4 ??F) 02/10/2012 9:51 AM CDT Respiratory Rate - - Oxygen Saturation 97% 02/10/2012 9:51 AM CDT Inhaled Oxygen Concentration - - Weight 120.2 kg (265 lb) 02/10/2012 9:51 AM CDT Height - - Body Mass Index 35.94 02/08/2012 7:10 AM CDT documented in this encounter Progress Notes Joseph Quintana MD - 02/11/2012 4:44 PM CDT Assessment and Plan: 1. Kidney transplant evaluation - patient is a good candidate overall. Benefits of a living donor transplant were discussed. No absolute indication for a pancreas transplant at this time. Will need full cardiac evaluation. 2. 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 Martini. 3. HTN: appears to be still volume overloaded; can increase fluid removal on HD, or consider adding a diuretic. Will follow up with Dr. Martini. Discussed the risks and benefits of a transplant, including the risk of surgery and immunosuppression medications. Patients overall evaluation will be discussed in the Transplant Program's regular meeting with a final recommendation on the patients suitability for transplant to be made at that time. Attestation: This patient has been seen and evaluated by me, Joseph Quintana MD. I have reviewed the note and agree with plan of care as documented by the fellow. Consult: Elinor Guthrie was seen in consultation at the request of Dr. Thomas for evaluation as a potential Kidney transplant recipient. Reason for Visit: Elinor Guthrie is a 61 year old year old male with ESKD from DM, who presents for Kidney transplant evaluation. 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 He is doing well at this time without any major complaints. Started dialysis in Aug; He states that going back at least a year was told about elevated creatinine, but was never followed by a n ephrologist until he needed to start dialysis this Aug. Is on insulin and reports average f.s. in 130's. Reports no major hyperglycemia. Does have hypoglycemia in 40's about once per month, but he is always aware (diaphoresis). He does not have a potential donor. Currently dialyzes via fistula and dialysis has been going well. Still makes quite a bit of urine. Kidney Disease Hx: Kidney Disease Dx: DM Biopsy Proven: No On Dialysis: Yes: Date initiated: 09/06/11;, Dialysis Type: [facility]center HD; and Dialysis unit: [facility] Intercell Connector Placer: Dr. Martini Medical Hx: h/o HTN Yes Usual BP: Does not check h/o DM Yes h/o Protein in Urine Yes h/o Blood in Urine No h/o Kidney Stones No h/o UTI No h/o Chronic NSAID Use No Previous Transplant Hx: No Transplant Sensitization Hx: Previous Tx: no Blood Transfusion: no Uremic Symptoms: Fatigue: No; Cold: No; Nausea: No; Poor Appetite: No; Metallic Taste: No; Edema: No; Pruritis: No; Tremor: No; Cardiovascular Hx: h/o Cardiac Issues: No Exercise Tolerance: no chest pain or shortness of breath with exertion. Health Maintenance: Colonoscopy: Not up to date (pending) Potential Donor(s): No ROS: A comprehensive review of systems was obtained and negative, except as noted in the HPI or PMH. PMH: Medical record was reviewed and PMH was discussed with patient and noted below. Past Medical History Diagnosis Date ??? Diabetes mellitus type II ??? HTN (hypertension) ??? Hyperlipidemia ??? Diabetic peripheral neuropathy 2002 on insulin x 4 years ??? Retinopathy due to secondary diabetes mellitus ??? Gout ??? Anemia ??? Thrombocytopenia ??? Depression ??? Dialysis patient 08/30/2011 PSH: Past Surgical History Procedure Date ??? 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 Avf right forearm ??? Laser surgery of eye both eyes ??? Cataract iol, rt/lt both eyes Personal or family history of bleeding or anesthesia problems: No Family Hx: Family History Problem Relation Age of Onset ??? C.A.D. Father ??? Alzheimers Mother Personal Hx: History Social History ??? Marital Status: Single Spouse Name: N/A Number of Children: N/A ??? Years of Education: 14 Occupational History ??? 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 No narrative on file Allergies: No Known Allergies Medications: Prior to Admission medications Medication Sig Start Date End Date Taking? Authorizing Provider aspirin 81 MG tablet Take 1 tablet by mouth daily. Yes Reported, Patient B rzeiwrw-K-bdwwu acid (NEPHROCAPS) 1 MG capsule Take 1 capsule by mouth daily. Yes Reported, Patient LANTUS VIAL 100 UNITS/ML SC SOLN Inject 40 Units Subcutaneous daily. Yes Reported, Patient HumaLOG VIAL 100 UNITS/ML SOLN Inject 3-13 Units Subcutaneous 3 times daily (before meals). Yes Reported, Patient sertraline (ZOLOFT) 100 MG tablet Take 100 mg by mouth daily. Yes Reported, Patient zolpidem (AMBIEN) 10 MG tablet Take 10 mg by mouth nightly as needed. Yes Reported, Patient Calcium Carbonate-Vitamin D (CALCIUM + D PO) Take by mouth daily. Reported, Patient lisinopril (PRINIVIL,ZESTRIL) 40 MG tablet Take 40 mg by mouth 2 times daily. Reported, Patient METOPROLOL SUCCINATE PO Take by mouth daily. Reported, Patient Vitals: Pulse 60 Temp(Src) 98.4 ??F (36.9 ??C) (Oral) Wt 120.203 kg (265 lb) SpO2 97% Exam: GENERAL APPEARANCE: alert and no distress HENT: mouth without ulcers or lesions; no bruits. LYMPHATICS: no axillary, cervical, inguinal, or supraclavicular nodes RESP: lungs clear to auscultation - no rales, rhonchi or wheezes CV: regular rhythm, normal rate, no rub, no murmur EDEMA: 1+ LE edema R; + L BKA PULSES: 2+ femoral, DP bilat. ABDOMEN: soft, nontender, no HSM or masses and bowel sounds normal MS: extremities normal- no gross deformities noted, no evidence of inflammation in joints, no muscletenderness SKIN: no rash Results: Recent Results (from the past 168 hour(s)) ROUTINE UA WITH MICROSCOPIC Collection Time 02/08/12 7:06 AM Component Value Range Color Urine Light Yellow Appearance Urine Clear Glucose Urine 300 (*) NEG (mg/dL) Bilirubin Urine Negative NEG Ketones Urine Negative NEG (mg/dL) Specific [place] Urine 1.010 1.003 - 1.035 Blood Urine Negative NEG pH Urine 7.5 (*) 5.0 - 7.0 (pH) Protein Albumin Urine 300 (*) NEG (mg/dL) Urobilinogen mg/dL Normal 0.0 - 2.0 (mg/dL) Nitrite Urine Negative NEG Leukocyte Esterase Urine Negative NEG Source Unspecified Urine WBC Urine 1 0 - 2 (/HPF) RBC Urine <1 0 - 2 (/HPF) Hyaline Casts 3 (*) 0 - 2 (/LPF) HLA-AB TYPING PCR/SSOP Collection Time 02/08/12 7:07 AM Component Value Range ABTest Method SSOP A* locus 24 A* 68 B* locus 07 B* 44 C* locus 07 Bw-1 6 Bw-2 4 HLA-DR/DQ TYPING PCR/SSOP Collection Time 02/08/12 7:07 AM Component Value Range Drsso Test Method SSOP DRB1* locus 11 DRB1* 15 DRB3* locus 02 DRB5* 01 DQB1* locus 03(07) DQB1* 06 DQA1*locus 01 DQA1* 05 FACTOR 2 AND 5 MUTATION ANALYSIS Collection Time 02/08/12 7:07 AM Component Value Range Copath Report Value: Patient Name: ELINOR GUTHRIE MR#: [id number] Specimen #: [id number] Collected: 02/08/2012 07:07 Received: 02/08/2012 09:00 Reported: 02/11/2012 14:03 Ordering Phy(s): DARIAN JOSHI TEST(S) REQUESTED: A: Factor 5 Leiden and Factor 2 by PCR B: DNA Isolation, High purity extraction SPECIMEN DESCRIPTION: Blood METHODOLOGY: The regions of genomic DNA containing the W1859S Factor 5 gene mutation (Factor V Leiden) and the Factor 2(Prothrombin S68039W) gene mutation were simultaneously amplified using the polymerase chain reaction. The amplified products were digested with restriction endonuclease TaqI and products were analyzed by gel electrophoresis. RESULTS: FACTOR 5-LEIDEN RESULTS: Mutation analyzed: 1691G>A Factor 5 Mutation Interpretation: ABSENT Factor 5 Mutation genotype: G/G FACTOR 2/PROTHROMBIN RESULTS: Mutation analyzed: 52772O>A Factor 2 Mutation Interpretation: ABSENT Factor 2 Mutation genotype: G/G INTERPRETATION: The patient is negative for the Factor 5 mutation and negative for the Factor 2 mutation. This test was developed and its performance determined by the [facility]. It has not been cleared or approved by the U.S. Food and Drug Administration. The FDA has determined that such clearance or approval is not necessary. Pursuant to the requirements of CLIA'88, this laboratory has established and verified the test's accuracy and precision. This test is used for clinical purposes. Electronically Signed Out By: Liliya Stone MD TESTING LAB LOCATION: [address] [address] COLLECTION SITE: Client: [facility] Location: [facility]) HLA LUKASZ CLASS I SINGLE ANTIGEN Collection Time 02/08/12 7:07 AM Component Value Range SA1 Test Method Single Antigen SA1 Cell Class I SA1 PRA %POS 1 SA1 Hi Risk Lukasz None SA1 Mod Risk Lukasz A:43 SA1 Comments Value: High-risk, mfi >3,000. Mod-risk, mfi 500-3,000. Predictive PRA derived from local donor pool. HLA LUKASZ CLASS II SINGLE ANTIGEN Collection Time 02/08/12 7:07 AM Component Value Range SA2 Test Method Single Antigen SA2 Cell Class II SA2 PRA %POS 0 SAII Hi Risk Lukasz None SA2 Mod Risk Lukasz None SA2 Comments Value: High-risk, mfi >3,000. Mod-risk, mfi 500-3,000. Predictive PRA derived from local donor pool. INR Collection Time 02/08/12 7:25 AM Component Value Range INR 1.11 0.86 - 1.14 PARTIAL THROMBOPLASTIN TIME Collection Time 02/08/12 7:25 AM Component Value Range PTT 29 22 - 37 (sec) THROMBIN TIME Collection Time 02/08/12 7:25 AM Component Value Range Thrombin Time 16.7 13.0 - 19.0 (sec) LUPUS PANEL Collection Time 02/08/12 7:25 AM Component Value Range Lupus Result NEG Value: Negative (Note) COMMENTS: The INR is normal. APTT is normal. 1:2 Mix is not indicated. DRVVT Screen is normal. Thrombin time is normal. NEGATIVE TEST; A LUPUS ANTICOAGULANT WAS NOT DETECTED IN THIS SPECIMEN WITHIN THE LIMITS OF THE TESTING REPERTOIRE. If the clinical picture is strongly suggestive of an antiphospholipid syndrome, recommend anticardiolipin and uxxh-5-xzgmpfllleqe (IgG and IgM) antibody tests. Dee Duenas M.D. [phone] 02-09-2012. APTT'S: Seconds Reagent = Stago LS Normal = 36 Patient = 38 1:2 Mix = N/A Reference = 31-43 DILUTE NAVARRO VIPER VENOM TEST: DRVVT Screen Ratio = 0.92 Normal = <1.28 CBC WITH PLATELETS DIFFERENTIAL Collection Time 02/08/12 7:25 AM Component Value Range WBC 6.3 4.0 - 11.0 (10e9/L) RBC Count 3.97 (*) 4.4 - 5.9 (10e12/L) Hemoglobin 12.0 (*) 13.3 - 17.7 (g/dL) Hematocrit 36.3 (*) 40.0 - 53.0 (%) MCV 91 78 - 100 (fl) MCH 30.2 26.5 - 33.0 (pg) MCHC 33.1 31.5 - 36.5 (g/dL) RDW 15.3 (*) 10.0 - 15.0 (%) Platelet Count 144 (*) 150 - 450 (10e9/L) Diff Method Automated Method % Neutrophils 57.7 40 - 75 (%) % Lymphocytes 27.7 20 - 48 (%) % Monocytes 8.2 0 - 12 (%) % Eosinophils 6.1 (*) 0 - 6 (%) % Basophils 0.3 0 - 2 (%) % Immature Granulocytes 0.0 0 - 0.4 (%) Absolute Neutrophil 3.6 1.6 - 8.3 (10e9/L) Absolute Lymphocytes 1.7 0.8 - 5.3 (10e9/L) Absolute Monoctyes 0.5 0.0 - 1.3 (10e9/L) Absolute Eosinophils 0.4 0.0 - 0.7 (10e9/L) Absolute Basophils 0.0 0.0 - 0.2 (10e9/L) Abs Immature Granulocytes 0.0 0 - 0.03 (10e9/L) IMMUNOLOGY RECIPIENT Collection Time 02/08/12 7:25 AM Component Value Range Immunology Test Name SOT HLA WORKUP Immunology Result Value: Specimen received - Immunology report to follow upon completion. CMV IGG ANTIBODY Collection Time 02/08/12 7:25 AM Component Value Range CMV IgG Antibody 3.30 EBV VCA IGG ANTIBODY Collection Time 02/08/12 7:25 AM Component Value Range EBV VCA IgG Antibody 188.00 HEPATITIS B CORE ANTIBODY Collection Time 02/08/12 7:25 AM Component Value Range Hepatitis B Core Lukasz Negative NEG HEPATITIS B SURFACE ANTIBODY Collection Time 02/08/12 7:25 AM Component Value Range Hep B Surface Lukasz 135.0 HEPATITIS B SURFACE ANTIGEN Collection Time 02/08/12 7:25 AM Component Value Range Hep B Surface Agn Negative NEG HEPATITIS C ANTIBODY Collection Time 02/08/12 7:25 AM Component Value Range Hepatitis C Antibody Negative NEG HIV 1 AND 2 ANTIBODY Collection Time 02/08/12 7:25 AM Component Value Range HIV 1&2 Antibody Negative NEG ANTI TREPONEMA EIA Collection Time 02/08/12 7:25 AM Component Value Range Treponema pallidum Antibody Negative NEG VARICELLA ZOSTER ANTIBODY IGG Collection Time 02/08/12 7:25 AM Component Value Range Varicella Zoster IgG Immune Status Ratio 1023.00 Vari Zoster IgG Interp Value: Positive, suggests prev. exposure and probable immunity ABO/RH TYPE AND SCREEN Collection Time 02/08/12 7:25 AM Component Value Range ABO A RH(D) Pos Antibody Screen Neg Specimen Expires 02/11/2012 LIPID PROFILE Collection Time 02/08/12 7:25 AM Component Value Range Cholesterol 134 0 - 200 (mg/dL) Triglycerides 74 0 - 150 (mg/dL) HDL Cholesterol 42 40 - 110 (mg/dL) LDL Cholesterol Calculated 77 0 - 129 (mg/dL) VLDL-Cholesterol 15 0 - 30 (mg/dL) Cholesterol/HDL Ratio 3.2 0.0 - 5.0 COMPREHENSIVE METABOLIC PANEL Collection Time 02/08/12 7:25 AM Component Value Range Sodium 143 133 - 144 (mmol/L) Potassium 4.4 3.4 - 5.3 (mmol/L) Chloride 106 94 - 109 (mmol/L) Carbon Dioxide 24 20 - 32 (mmol/L) Anion Gap 13 6 - 17 (mmol/L) Glucose 126 (*) 60 - 99 (mg/dL) Urea Nitrogen 32 (*) 7 - 30 (mg/dL) Creatinine 5.46 (*) 0.66 - 1.25 (mg/dL) GFR Estimate 11 (*) >60 (mL/min/1.7m2) GFR Estimate If Black 13 (*) >60 (mL/min/1.7m2) Calcium 8.5 8.5 - 10.4 (mg/dL) Bilirubin Total 0.8 0.2 - 1.3 (mg/dL) Albumin 3.8 3.3 - 4.9 (g/dL) Protein Total 6.8 6.8 - 8.8 (g/dL) Alkaline Phosphatase 92 40 - 150 (U/L) ALT 13 0 - 70 (U/L) AST 18 0 - 45 (U/L) CARDIOLIPIN ANTIBODY IGG AND IGM Collection Time 02/08/12 7:25 AM Component Value Range Cardiolipin IgG Lukasz 0 - 15.0 (GPL) Value: <15.0 Interpretation: Negative Cardiolipin IgM Lukasz 0 - 12.5 (MPL) Value: <12.5 Interpretation: Negative C-PEPTIDE Collection Time 02/08/12 7:25 AM Component Value Range C Peptide 5.3 0.9 - 6.9 (ng/mL) HEMOGLOBIN A1C Collection Time 02/08/12 7:25 AM Component Value Range Hemoglobin A1C 5.3 4.3 - 6.0 (%) PROSTATE SPEC ANTIGEN SCREEN Collection Time 02/08/12 7:25 AM Component Value Range PSA 0.44 0 - 4 (ug/L) ANTIBODY TITER RED CELL Collection Time 02/08/12 7:26 AM Component Value Range Antibody Titer Anti B titer IgM: 4 Ig M TUBERCULOSIS BY QUANTIFERON Collection Time 02/08/12 7:26 AM Component Value Range M Tuberculosis Result Negative NEG M Tuberculosis Antigen Value 0.01 EKG 12-LEAD, TRACING ONLY Collection Time 02/08/12 7:30 AM Component Value Range Ventricular Rate 60 Atrial Rate 60 DC Interval 186 QRS Duration 104 QT 440 QTc 440 P [place] 36 R AXIS 0 T [place] 36 Interpretation ECG Sinus rhythm Interpretation ECG Normal ECG Interpretation ECG No previous ECGs available X-RAY CHEST 2 VWS Collection Time 02/08/12 8:07 AM Component Value Range IMAGECAST RESULT Value: Chest x-ray 2 views PA/lateral HISTORY: End-stage renal disease, diabetes mellitus COMPARISON: None FINDINGS: Lungs and costophrenic angles are clear. Cardiomediastinal silhouette is within normal limits. No pneumothorax. Degenerative changes of the thoracic spine, including anterior wedging of an upper lumbar vertebral body. Cardiomediastinal silhouette is not enlarged. IMPRESSION: No acute airspace opacity. I have personally reviewed the image and initial interpretation, and I agree with findings. PULMONARY FUNCTION TEST Collection Time 02/08/12 8:35 AM Component Value Range Pulmonary Function Test Value: Name: ELINOR GUTHRIE ID: [id number] Doctor: DONYA THOMAS Height: 72.00 in Age: 61 Aki Margi Corteze Weight: 273.40 lbs Sex: Male Date: 02/08/2012 Time: 08:35:19 AM Race: <Unspecified> PT ID: Doctor ID: Diagnosis: END STAGE KIDNEY DISEASE / KIDNEY TX W/U CIGAR SMOKER / QUIT 10 YEAR AGO Dyspnea: No Dyspnea Cough: Productive Wheeze: No Wheeze Post-Test Comments: Good patient effort & cooperation. FVC attempted x 10 with 3 best efforts selected. The results of the DLCO test meet the ATS standards for acceptability and repeatability. The results of the TGV test meet the ATS standards for acceptability and repeatability. PRE-BRONCH POST-BRONCH Floyd Prd %Prd Floyd %Prd %Chg SPIROMETR FVC (L) 4.94 5.05 98 FEV1 (L) 4.07 3.80 107 FEV1/FVC (%) 82 75 110 FEV1/SVC (%) 84 75 112 FEV1/FEV6 (%) 83 79 106 FEF 25-75% 4.67 3.07 152 FEF Max (L/sec) 10.09 9.54 106 FIVC (L) 5.06 FIF Max (L/sec) 4.88 3.70 132 MVV (L/min) 143 145 99 LUNG VOLUMES SVC (L) 4.84 5.05 96 IC (L) 4.03 3.50 115 ERV (L) 0.82 1.55 53 TGV (L) 3.18 3.90 81 RV (Pleth) (L) 2.36 2.39 99 TLC (Pleth) (L) 7.20 7.40 97 RV/TLC (Pleth) 33 33 99 DIFFUSION DLCOunc 21.04 28.84 73 DLCOcor 22.91 28.84 79 DL/VA 3.07 3.90 79 VA (L) 7.46 7.40 101 BLOOD Hgb (gm/dL) 12.0 12-18 INTERPRETATION: The FVC, FEV1, FEV1/FVC ratio and KQH45-06% are within normal limits. The inspiratory flow rates are within normal limits. The MVV is within normal limits. Lung volumes are within normal limits. Diffusion capacity is normal. IMPRESSION: Normal spirometry Normal lung volumes Normal diffusion capacity This preliminary report should not be used clinically unless reviewed and signed by a physician. [facility]CK GR[facility] ([facility]) Collection Time 02/08/12 1:13 PM Component Value Range XCELERA Value: Interpretation Summary No significant valvular abnormalities were [...] Ao V2 VTI: 49 cm Interpreting Physician: Norma Trevino MD electronically signed on 02-08-2012 16:55:56 ABO TYPE Collection Time 02/08/12 1:52 PM Component Value Range ABO A RH(D) Pos Specimen Expires 02/11/2012 US RETROPERITONEAL COMPLETE Collection Time 02/10/12 7:22 AM Component Value Range IMAGECAST RESULT Value: EXAM: Aortic ultrasound 02/10/2012 HISTORY: Risk factors for AAA COMPARISON: None FINDINGS: The proximal aorta measures 2.4 cm, the mid aorta measures 2.2 centimeters in the distal aorta measures 2.0 cm. The right common iliac artery measures 1.3 cm and the left common iliac artery measures 1.1 cm IMPRESSION: No abdominal aortic aneurysm. I have personally reviewed the image and initial interpretation, and I agree with findings. Patient seen and examined with Dr. Quintana. Marty Baltazar MD, FACP Nephrology Fellow documented in this encounter Nursing Notes 02/10/2012 10:00 AM CDT >> AUSTEN FAUSTIN [facility] Feb 10, 2012 9:54 AM Took igor cc, reviewed meds and allergies documented in this encounter Plan of Treatment Not on filedocumented as of this encounter Visit Diagnoses Diagnosis Pre-transplant evaluation for chronic ki dney disease - Primary Other specified pre-operative examinatio n documented in this encounter Care Teams Typewriter Ribbon Winder Relationship Specialty Start Date End Date Toña Jones MD PCP - General Nephrology 11/25/11 01/01/14 Ingrid Santana RN Registered Nurse Transplant 02/10/12 10/01/15 documented as of this encounter
--- OUTSIDE RECORDS SUMMARY | 2022-03-30 18:53 | XMS_ITS | Encounter Summary ---
:1950 Author Organization [place] Address [address] [place] [address] Care Team Providers Name Role Phone Toña Jones MD Primary Care Provider Encounter Details Date Type Department Care Team Description 02/08/2012 Orders Only [facility] Thomas, Ty Blink, End sta ge kidney Pulmonary Function disease ( H) (Primary Laboratory Dx) 6th Floor [address] [place] [address] Social History Tobacco Use Types [...] Procedure Name Priority Date/Time Associated Comments Diagnosis HC DIFFUSING CAPACITY Routine 02/08/2012 9:19 End stage kidney AM CDT disease (H) HC PLETHYSMOGRAPHY LUNG Routine 02/08/2012 9:19 End stage kidn ey VOLUMES W/WO AIRWAY AM CDT disease (H) RESIST HC RESPIRATORY FLOW Routine 02/08/2012 9:19 End stage kidney VOLUME LOOP AM CDT disease (H) HC MAXIMUM VOLUNTARY Routine 02/08/2012 9:19 End stage kidney VENTILATION AM CDT disease (H) PFT GENERAL LAB TESTING Routine 02/08/2012 8:35 End stage kidn geovani Results for this AM CDT disease (H) procedure are i n the results section. HIM PROCEDURE SCAN Routine 02/08/2012 End stage kidney disease (H) documented in this encounter Results PFT Lab Testing (Generic) (02/08/2012 8:35 AM CDT) [facility] Method Time Signature Pulmonary COPATH Function Test Name: ? ELINOR GUTHRIE ? ID: ?[id number] Doctor: ?JESUS THOMAS ?Height: ?72.00 in ? Age: ?? 61 Aki ?Katrina Cortez ?Weight: ? 273.40 lbs ?? Sex: ?? Male Date: ?02/08/2012 ?Time: 08:35:19 AM ?? Race: ?<Unspecified> PT ID: ? Doctor ID: Diagnosis: ? END STAGE KIDNEY DISEASE / KIDNEY TX ? W/U ? CIGAR SMOKER / QUIT 10 YEAR AGO Dyspnea: ?No Dyspnea Cough: ? Productive Wheeze: ?No Wheeze Post-Test Comments: Good patient effort & cooperation. ??FVC attempted x 10 with 3 best efforts selected. ??The results of the DLCO test meet t he ATS standards for acceptability and repeatability. ??The results of the TGV test meet the ATS standards for acceptability and repeatability. ? PRE-BRONCH ? POST-BRONCH ? Floyd ? Prd ? %Prd ?Floyd ?%Prd ? %Chg SPIROMETR FVC (L) ?4.94 ?5.05 ? 98 FEV1 (L) ? 4.07 ?3.80 ?107 FEV1/FVC (%) ? 82 ?75 ?110 FEV1/SVC (%) ? 84 ?75 ?112 FEV1/FEV6 (%) ?83 ?79 ?106 FEF 25-75% ? 4.67 ?3.07 ?152 FEF Max (L/sec) ? 10.09 ?9.54 ?106 FIVC (L) ? 5.06 FIF Max (L/sec) ?4.88 ?3.70 ?132 MVV (L/min) ? 143 ? 145 ? 99 LUNG VOLUMES SVC (L) ?4.84 ?5.05 ? 96 IC (L) ? 4.03 ?3.50 ?115 ERV (L) ?0.82 ?1.55 ? 53 TGV (L) ?3.18 ?3.90 ? 81 RV (Pleth) (L) ? 2.36 ?2.39 ? 99 TLC (Pleth) (L) ?7.20 ?7.40 ? 97 RV/TLC (Pleth) ? 33 ?33 ? 99 DIFFUSION DLCOunc ? 21.04 ?? 28.84 ? 73 DLCOcor ? 22.91 ?? 28.84 ? 79 DL/VA ?3.07 ?3.90 ? 7 9 VA (L) ? 7.46 ?7.40 ?101 BLOOD Hgb (gm/dL) ?12.0 ?? 12-18 INTERPRETATION: The FVC, FEV1, FEV1/FVC ratio and FAC49-62% are within normal limits. ??The inspiratory flow rates are within isabella l limits. The MVV is within normal limits. ??Lung volumes are within n ormal limits. ??Diffusion capacity is normal. IMPRESSION: Normal spirometry Normal lung volumes Normal diffusion capacity This preliminary report should not be used clinically unless reviewed and signed by a physician. MARCK GRACE Specimen (Source) Anatomical Collection Method Collection Time Re ceived Time Location / / Volume Laterality 02/08/2012 8:35 AM CDT Jesus Thomas MD PFT ORDERABLES Performing Organization Address City/State/ZIP Code Phon e Number COPATH PFT Procedure Scan - HIM Procedure Scan (02/08/2012) Narrative This result has an attachment that is no t available. Jesus Thomas MD PROCEDURES documented in this encounter Visit Diagnoses Diagnosis End stage kidney disease (H) - Primary End stage renal disease documented in this encounter Care Teams Bottle And Glass Inspector Relationship Specialty Start Date End Date Toña Jones MD PCP - General Nephrology 11/25/11 01/01/14 documented as of this encounter
--- OUTSIDE RECORDS SUMMARY | 2022-03-30 18:53 | XMS_ITS | Encounter Summary ---
:1950 Author Organization [place] Address [address] [place] [address] Care Team Providers Name Role Phone Toña Jones MD Primary Care Provider Ingrid Santana RN Unavailable Encounter Details Date Type Department Care Team Description 02/08/2012 Results Only LABORATORY RESULTS Jeff Joshi MD [address] [facility] [address] [place] [address] (Wo rk) Social History Tobacco [...] Comme nts HLA LUKASZ CLASS II Routine 02/08/2012 7:07 AM Resul ts for this SINGLE ANTIGEN CDT procedure are in the results section. documented in this encounter Results HLA Lukasz Class II Single Antigen (02/08/2012 7:07 AM CDT) [facility] Method Time Signature SA2 Test Single Antigen [...] Phon e Number [facility] LABORATORY Immunology/Histocompatabil [place], [place] [address] ity [facility] [address] [facility] [address] Building, Room 3-580 HISTOTRAC documented in this encounter Visit Diagnoses Not on filedocumented in this encounter Care Teams Acetylene Torch Solderer Relationship Specialty Start Date End Date Toña Jones MD PCP - General Nephrology 11/25/11 01/01/14 Ingrid Santana RN Registered Nurse Transplant 02/10/12 10/01/15 documented as of this encounter
--- OUTSIDE RECORDS SUMMARY | 2022-03-30 18:54 | XMS_ITS | Encounter Summary ---
:1950 Author Organization [place] Address [address] [place] [address]. [place] [address] Care Team Providers Name Role Phone Toña Jones MD Primary Care Provider Ingrid Santana RN Unavailable Momo Forbes Primary Care Provider Encounter Details Date Type Department Care Team Description 01/14/2006 Historic Results GH CONVERSION Provider, MD Marcela Social History Tobacco Use Types Packs/Day Years Used Date Never Assessed Sex Assigned at Date Recorded Not on file documented as of this encounter Plan of Treatment Not on filedocumented as of this encounter Procedures Procedure Name Priority Date/Time Associated Diagnosis Comme nts LAB RESULT - HIM SCAN - 01/14/2006 8:28 AM CDT ARCHIVE documented in this encounter Results LAB RESULT - HIM SCAN - ARCHIVE (01/14/2006 8:28 AM CDT) Specimen (Source) Anatomical Location Collection Method / Collectio n Time Received Time / Laterality Volume Narrative This result has an attachment that is no t available. Marcela Cordero MD LAB - BLOOD ORDERABLES documented in this encounter Visit Diagnoses Not on filedocumented in this encounter Care Teams Shearer Operator Relationship Specialty Start Date End Date Toña Jones MD PCP - General Nephrology 11/25/11 01/01/14 Momo Forbes PCP - General Family Practice 01/02/14 [facility] [address] [place] [address] Ingrid Santana, RN Registered Nurse Transplant 02/10/12 10/01/15 documented as of this encounter
--- OUTSIDE RECORDS SUMMARY | 2022-03-30 18:54 | XMS_ITS | Encounter Summary ---
:1950 Author Organization [place] Address On license of [facility] [place] [address] Care Team Providers Name Role Phone Toña Jones MD Primary Care Provider Ingrid Santana RN Unavailable Momo Forbes Primary Care Provider Encounter Details Date Type Department Care Team Description 05/20/2011 Historic Results GH CONVERSION Provider, MD Marcela Social History Tobacco Use Types Packs/Day Years Used Date Never Assessed Sex Assigned at Date Recorded Not on file documented as of this encounter Plan of Treatment Not on filedocumented as of this encounter Procedures Procedure Name Priority Date/Time Associated Diagnosis Comme nts SLEEP STUDY - HIM SCAN 05/20/2011 8:28 AM CDT - ARCHIVE SLEEP STUDY - HIM SCAN 05/20/2011 8:28 AM CDT - ARCHIVE documented in this encounter Results SLEEP STUDY - HIM SCAN - ARCHIVE (05/20/2011 8:28 AM CDT) Specimen (Source) Anatomical Location Collection Method / Collectio n Time Received Time / Laterality Volume Narrative This result has an attachment that is no t available. Marcela Provider PFT ORDERABLES SLEEP STUDY - HIM SCAN - ARCHIVE (05/20/2011 8:28 AM CDT) Specimen (Source) Anatomical Location Collection Method / Collectio n Time Received Time / Laterality Volume Narrative This result has an attachment that is no t available. Marcela Provider PFT ORDERABLES documented in this encounter Visit Diagnoses Not on filedocumented in this encounter Care Teams Grave Cleaner Relationship Specialty Start Date End Date Toña Jones MD PCP - General Nephrology 11/25/11 01/01/14 Momo Forbes PCP - General Family Practice 01/02/14 [facility] [address] [place] [address] Ingrid Santana, RN Registered Nurse Transplant 02/10/12 10/01/15 documented as of this encounter
--- OUTSIDE RECORDS SUMMARY | 2022-03-30 18:54 | XMS_ITS | Encounter Summary ---
:1950 Author Organization [place] Address [facility] [place] [address] Care Team Providers Name Role Phone Toña Jones MD Primary Care Provider Reason for Referral - Closed Specialty Diagnoses / Procedures Referred By Contact Refer red To Contact Diagnoses Diabetes mellitus, type 2 (H) End stage renal disease (H) [facility] Floor, [place] [phone] Referral ID Status Reason Start Date Expiration Date Visits Requ ested Visits Authorized [id number] Closed 12/02/2011 05/30/2012 1 1 - Closed Specialty Diagnoses / Procedures Referred By Contact Refer red To Contact Diagnoses Diabetes mellitus, type 2 (H) End stage renal disease (H) [facility] Floor, [address] [phone] Referral ID Status Reason Start Date Expiration Date Visits Requ ested Visits Authorized [id number] Closed 12/02/2011 05/30/2012 1 1 - Closed Specialty Diagnoses / Procedures Referred By Contact Refer red To Contact Diagnoses Diabetes mellitus, type 2 (H) End stage renal disease (H) [facility] Renal 2nd Floor, [facility] 2A [place] [phone] Referral ID Status Reason Start Date Expiration Date Visits Requ ested Visits Authorized [id number] Closed 12/02/2011 05/30/2012 1 1 - Closed Specialty Diagnoses / Procedures Referred By Contact Refer red To Contact Diagnoses Diabetes mellitus, type 2 (H) End stage renal disease (H) [facility] Renal 2nd Floor, Clinic [address] [place] [phone] Referral ID Status Reason Start Date Expiration Date Visits Requ ested Visits Authorized [id number] Closed 12/02/2011 05/30/2012 1 1 - Closed Specialty Diagnoses / Procedures Referred By Contact Refer red To Contact Diagnoses Diabetes mellitus, type 2 (H) End stage renal disease (H) [facility] Renal [facility] Floor, [address] [phone] Referral ID Status Reason Start Date Expiration Date Visits Requ ested Visits Authorized [id number] Closed 12/02/2011 05/30/2012 1 1 - Closed Specialty Diagnoses / Procedures Referred By Contact Refer red To Contact Diagnoses Diabetes mellitus, type 2 (H) End stage renal disease (H) [facility] Renal [address] [place] [address], [address] [phone] Referral ID Status Reason Start Date Expiration Date Visits Requ ested Visits Authorized [id number] Closed 12/02/2011 05/30/2012 1 1 - Closed Specialty Diagnoses / Procedures Referred By Contact Refer red To Contact Diagnoses Diabetes mellitus, type 2 (H) End stage renal disease (H) [facility] Renal 2nd Floor, Clinic [address] [phone] Referral ID Status Reason Start Date Expiration Date Visits Requ ested Visits Authorized [id number] Closed 12/02/2011 05/30/2012 1 1 - Closed Specialty Diagnoses / Procedures Referred By Contact Refer red To Contact Diagnoses Diabetes mellitus, type 2 (H) End stage renal disease (H) [facility] Renal 2nd Floor, Clinic [address] [phone] Referral ID Status Reason Start Date Expiration Date Visits Requ ested Visits Authorized [id number] Closed 12/02/2011 05/30/2012 1 1 - Closed Specialty Diagnoses / Procedures Referred By Contact Refer red To Contact Diagnoses Diabetes mellitus, type 2 (H) End stage renal disease (H) [facility] Renal 2nd Floor, Clinic [address] [address] [phone] Referral ID Status Reason Start Date Expiration Date Visits Requ ested Visits Authorized [id number] Closed 12/02/2011 05/30/2012 1 1 Encounter Details Date Type Department Care Team Description 12/02/2011 Orders Only Nephrology Ingrid Santana, Diabetes mellitus, type 2 (H ); 2nd Floor, Clinic 2A RN End stage renal disease (H) [facility] [phone] Building (Work) [address] [place] [phone] Social History Tobacco Use Types Packs/Day Years Used Date Never Assessed Sex Assigned at Date Recorded Not on file documented as of this encounter Plan of Treatment Pending Results Name Type Priority Associated Diagnoses Date/Ti me Echo Complete - Clinic Imaging Routine Diabetes mellitus, type 02/09/2012 6:26 AM CDT (PWB) 2 (H) End stage renal disease (H) Scheduled Referrals Name Type Priority Associated Diagnoses Order S chedule Pre-Transplant Class Referral Routine Diabetes mellitus, O rdered: 12/02/2011 type 2 (H) End stage renal disease (H) Patient is on Referral Routine Diabetes mellitus, Ordered: 12/02/2011 hemodialysis type 2 (H) End stage renal disease (H) BUILDING ESTIMATOR Referral Routine Diabetes mellitus, Ordered: 12/02/2011 REFERRAL type 2 (H) End stage renal disease (H) NEPHROLOGY ADULT REFERRAL Referral Routine Diabetes mellit us, Ordered: 12/02/2011 type 2 (H) End stage renal disease (H) GENERAL SURG ADULT Referral Routine Diabetes mellitus, Ord ered: 12/02/2011 REFERRAL type 2 (H) End stage renal disease (H) SOCIOLOGY RESEARCH ASSISTANT REFERRAL Referral Routine Diabetes mellitu s, Ordered: 12/02/2011 type 2 (H) End stage renal disease (H) CARDIOLOGY EVAL ADULT Referral Routine Diabetes mellitus, Ordered: 12/02/2011 REFERRAL type 2 (H) End stage renal disease (H) NUTRITION REFERRAL Referral Routine Diabetes mellitus, Ord ered: 12/02/2011 type 2 (H) End stage renal disease (H) Cardiac Catherizaton Referral Routine Diabetes mellitus, O rdered: 12/02/2011 type 2 (H) End stage renal disease (H) documented as of this encounter Procedures Procedure Name Priority Date/Time Associated Diagnosis Comme nts XR CHEST 2 VIEWS Routine 02/08/2012 8:07 AM Diabetes mellitus, Results for this CDT type 2 (H) procedure are in End stage renal the results disease (H) section. documented in this encounter Results X-ray Chest 2 vws* (02/08/2012 8:07 AM CDT) Anatomical Region Laterality Modality Chest Computed Radiography Specimen (Source) Anatomical Collection Method Collection Time Re ceived Time Location / / Volume Laterality 02/08/2012 8:07 AM CDT Impressions 02/10/2012 10:48 AM CDT Chest x-ray 2 views PA/lateral HISTORY: ?End-stage renal disease, d iabetes mellitus COMPARISON: ?None FINDINGS: ?Lungs and costophrenic an gles are clear. Cardiomediastinal silhouette is within n ormal limits. No pneumothorax. Degenerative changes of the thoracic spi ne, including anterior wedging of an upper lumbar vertebral body. Cardi omediastinal silhouette is not enlarged. IMPRESSION: No acute airspace opacity. I have personally reviewed the image and initial interpretation, and I agree with findings. Chucho Joshi MD IMG DIAGNOSTIC IMAGING ORDER MARYELLEN documented in this encounter Visit Diagnoses Diagnosis Diabetes mellitus, type 2 (H) Type II or unspecified type diabetes aung litus without mention of complication, not stated as uncontrolled End stage renal disease (H) End stage renal disease documented in this encounter Care Teams Gas Treater Relationship Specialty Start Date End Date Toña Jones MD PCP - General Nephrology 11/25/11 01/01/14 documented as of this encounter
--- OUTSIDE RECORDS SUMMARY | 2022-03-30 18:54 | XMS_ITS | Encounter Summary ---
:1950 Author Organization [place] Address [address] [place] [address]. [place] [address] Care Team Providers Name Role Phone Toña Jones MD Primary Care Provider Ingrid Santana RN Unavailable Momo Forbes Primary Care Provider Encounter Details Date Type Department Care Team Description 01/28/1998 [facility] Cesar Tejeda [facility] [address] [place], [place] [address] (Wo rk) Social History Tobacco Use Types Packs/Day Years Used Date Never Assessed Sex Assigned at Date Recorded Not on file documented as of this encounter Plan of Treatment Not on filedocumented as of this encounter Visit Diagnoses Not on filedocumented in this encounter Care Teams Dryland Farmer Relationship Specialty Start Date End Date Toña Jones MD PCP - General Nephrology 11/25/11 01/01/14 Momo Forbes PCP - General Family Practice 01/02/[address] [address] Ingrid Santana, RN Registered Nurse Transplant 02/10/12 10/01/15 documented as of this encounter
--- OUTSIDE RECORDS SUMMARY | 2022-03-30 18:54 | XMS_ITS | Encounter Summary ---
:1950 Author Organization [place] Address [address] [facility] [place] [address] Care Team Providers Name Role Phone Toña Jones MD Primary Care Provider Ingrid Santana RN Unavailable Momo Forbes Primary Care Provider Encounter Details Date Type Department Care Team Description 12/03/2004 Historic Results GH CONVERSION Provider, MD Marcela Social History Tobacco Use Types Packs/Day Years Used Date Never Assessed Sex Assigned at Date Recorded Not on file documented as of this encounter Plan of Treatment Not on filedocumented as of this encounter Procedures Procedure Name Priority Date/Time Associated Diagnosis Comme nts LAB RESULT - HIM SCAN - 12/03/2004 8:28 AM CDT ARCHIVE LAB RESULT - HIM SCAN - 12/03/2004 8:26 AM CDT ARCHIVE documented in this encounter Results LAB RESULT - HIM SCAN - ARCHIVE (12/03/2004 8:28 AM CDT) Specimen (Source) Anatomical Location Collection Method / Collectio n Time Received Time / Laterality Volume Narrative This result has an attachment that is no t available. Marcela Provider LAB - BLOOD ORDERABLES LAB RESULT - HIM SCAN - ARCHIVE (12/03/2004 8:26 AM CDT) Specimen (Source) Anatomical Location Collection Method / Collectio n Time Received Time / Laterality Volume Narrative This result has an attachment that is no t available. Marcela Provider LAB - BLOOD ORDERABLES documented in this encounter Visit Diagnoses Not on filedocumented in this encounter Care Teams Bath Attendant Relationship Specialty Start Date End Date Toña Jones MD PCP - General Nephrology 11/25/11 01/01/14 Momo Forbes PCP - General Family Practice 01/02/14 [facility] [address] [place] [address] Ingrid Santana, RN Registered Nurse Transplant 02/10/12 10/01/15 documented as of this encounter
--- OUTSIDE RECORDS SUMMARY | 2022-03-30 18:54 | XMS_ITS | Encounter Summary ---
:1950 Author Organization [place] Address [facility] [place] [address] Care Team Providers Name Role Phone Toña Jones MD Primary Care Provider Ingrid Santana RN Unavailable Encounter Details Date Type Department Care Team Description 12/07/2011 Orders Only Nephrology Chucho Joshi MD Dialysis patient (H) 2nd Floor, Clinic 2A [address] (Primary Dx) Tommy Ruiz[address] [place] [address] [place], [place] [phone] (Wo rk) [phone] Social History Tobacco Use Types Packs/Day Years Used Date Never Assessed Sex Assigned at Date Recorded Not on file documented as of this encounter Plan of Treatment Not on filedocumented as of this encounter Visit Diagnoses Diagnosis Dialysis patient (H) - Primary Renal dialysis status documented in this encounter Care Teams Scraper Tender Relationship Specialty Start Date End Date Toña Jones MD PCP - General Nephrology 11/25/11 01/01/14 Ingrid Santana, RN Registered Nurse Transplant 02/10/12 10/01/15 documented as of this encounter
--- OUTSIDE RECORDS SUMMARY | 2022-03-30 18:54 | XMS_ITS | Encounter Summary ---
:1950 Author Organization [place] Address [facility] [place] [address] Care Team Providers Name Role Phone Toña Jones MD Primary Care Provider Ingrid Santana RN Unavailable Momo Forbes Primary Care Provider Encounter Details Date Type Department Care Team Description 12/09/2005 Historic Results GH CONVERSION Provider, MD Marcela Social History Tobacco Use Types Packs/Day Years Used Date Never Assessed Sex Assigned at Date Recorded Not on file documented as of this encounter Plan of Treatment Not on filedocumented as of this encounter Procedures Procedure Name Priority Date/Time Associated Diagnosis Comme nts ECHO CARDIAC - HIM SCAN 12/09/2005 8:28 AM CDT - ARCHIVE LAB RESULT - HIM SCAN - 12/09/2005 8:27 AM CDT ARCHIVE LAB RESULT - HIM SCAN - 12/09/2005 8:25 AM CDT ARCHIVE documented in this encounter Results ECHO CARDIAC - HIM SCAN - ARCHIVE (12/09/2005 8:28 AM CDT) Specimen (Source) Anatomical Location Collection Method / Collectio n Time Received Time / Laterality Volume Narrative This result has an attachment that is no t available. Marcela Provider CV ECHO ORDERABLES LAB RESULT - HIM SCAN - ARCHIVE (12/09/2005 8:27 AM CDT) Specimen (Source) Anatomical Location Collection Method / Collectio n Time Received Time / Laterality Volume Narrative This result has an attachment that is no t available. Marcela Cordero MD LAB - BLOOD ORDERABLES LAB RESULT - HIM SCAN - ARCHIVE (12/09/2005 8:25 AM CDT) Specimen (Source) Anatomical Location Collection Method / Collectio n Time Received Time / Laterality Volume Narrative This result has an attachment that is no t available. Gich Provider LAB - BLOOD ORDERABLES documented in this encounter Visit Diagnoses Not on filedocumented in this encounter Care Teams Auto Transmission Technician Relationship Specialty Start Date End Date Toña Jones MD PCP - General Nephrology 11/25/11 01/01/14 Momo Forbes PCP - General Family Practice 01/02/14 [facility] [address] [place] [address] Ingrid Santana, RN Registered Nurse Transplant 02/10/12 10/01/15 documented as of this encounter
--- OUTSIDE RECORDS SUMMARY | 2022-03-30 18:54 | XMS_ITS | Encounter Summary ---
:1950 Author Organization [place] Address [address] [place] [address]. [place] [address] Care Team Providers Name Role Phone Toña Jones MD Primary Care Provider Ingrid Santana RN Unavailable Momo Forbes Primary Care Provider Encounter Details Date Type Department Care Team Description 04/12/2007 Historic Results GH CONVERSION Provider, MD Marcela Social History Tobacco Use Types Packs/Day Years Used Date Never Assessed Sex Assigned at Date Recorded Not on file documented as of this encounter Plan of Treatment Not on filedocumented as of this encounter Procedures Procedure Name Priority Date/Time Associated Diagnosis Comme nts EKG CARDIAC - HIM SCAN 04/12/2007 1:49 PM CDT - ARCHIVE documented in this encounter Results EKG CARDIAC - HIM SCAN - ARCHIVE (04/12/2007 1:49 PM CDT) Specimen (Source) Anatomical Location Collection Method / Collectio n Time Received Time / Laterality Volume Narrative This result has an attachment that is no t available. Marcela Cordero MD ECG ORDERABLES documented in this encounter Visit Diagnoses Not on filedocumented in this encounter Care Teams Per Diem Clerk Relationship Specialty Start Date End Date Toña Jones MD PCP - General Nephrology 11/25/11 01/01/14 Momo Forbes PCP - General Family Practice 01/02/14 [facility] [address] [place] [address] Ingrid Santana, RN Registered Nurse Transplant 02/10/12 10/01/15 documented as of this encounter
--- OUTSIDE RECORDS SUMMARY | 2022-03-30 18:54 | XMS_ITS | Encounter Summary ---
:1950 Author Organization [place] Address [address] [place] [address]. [place] [address] Care Team Providers Name Role Phone Toña Jones MD Primary Care Provider Ingrid Santana RN Unavailable Momo Forbes Primary Care Provider Encounter Details Date Type Department Care Team Description 12/15/2004 Historic Results GH CONVERSION Provider, MD Marcela Social History Tobacco Use Types Packs/Day Years Used Date Never Assessed Sex Assigned at Date Recorded Not on file documented as of this encounter Plan of Treatment Not on filedocumented as of this encounter Procedures Procedure Name Priority Date/Time Associated Diagnosis Comme nts LAB RESULT - HIM SCAN - 12/15/2004 8:27 AM CDT ARCHIVE documented in this encounter Results LAB RESULT - HIM SCAN - ARCHIVE (12/15/2004 8:27 AM CDT) Specimen (Source) Anatomical Location Collection Method / Collectio n Time Received Time / Laterality Volume Narrative This result has an attachment that is no t available. Marcela Cordero MD LAB - BLOOD ORDERABLES documented in this encounter Visit Diagnoses Not on filedocumented in this encounter Care Teams Portable Trackman Relationship Specialty Start Date End Date Toña Jones MD PCP - General Nephrology 11/25/11 01/01/14 Momo Forbes PCP - General Family Practice 01/02/14 [facility] [address] [place] [address] Ingrid Santana, RN Registered Nurse Transplant 02/10/12 10/01/15 documented as of this encounter
--- OUTSIDE RECORDS SUMMARY | 2022-03-30 18:54 | XMS_ITS | Encounter Summary ---
:1950 Author Organization [place] Address [facility] [place] [address] Care Team Providers Name Role Phone Toña Jones MD Primary Care Provider Ingrid Santana RN Unavailable Momo Forbes Primary Care Provider Encounter Details Date Type Department Care Team Description 11/02/2005 Historic Results GH CONVERSION Provider, MD Marcela Social History Tobacco Use Types Packs/Day Years Used Date Never Assessed Sex Assigned at Date Recorded Not on file documented as of this encounter Plan of Treatment Not on filedocumented as of this encounter Procedures Procedure Name Priority Date/Time Associated Diagnosis Comme nts LAB RESULT - HIM SCAN - 11/02/2005 8:27 AM FITTING ROOM MAINTENANCE MECHANIC ARCHIVE LAB RESULT - HIM SCAN - 11/02/2005 8:25 AM FITTING ROOM MAINTENANCE MECHANIC ARCHIVE documented in this encounter Results LAB RESULT - HIM SCAN - ARCHIVE (11/02/2005 8:27 AM FITTING ROOM MAINTENANCE MECHANIC) Specimen (Source) Anatomical Location Collection Method / Collectio n Time Received Time / Laterality Volume Narrative This result has an attachment that is no t available. Marcela Provider LAB - BLOOD ORDERABLES LAB RESULT - HIM SCAN - ARCHIVE (11/02/2005 8:25 AM FITTING ROOM MAINTENANCE MECHANIC) Specimen (Source) Anatomical Location Collection Method / Collectio n Time Received Time / Laterality Volume Narrative This result has an attachment that is no t available. Marcela Provider LAB - BLOOD ORDERABLES documented in this encounter Visit Diagnoses Not on filedocumented in this encounter Care Teams Rack Room Worker Relationship Specialty Start Date End Date Toña Jones MD PCP - General Nephrology 11/25/11 01/01/14 Momo Forbes PCP - General Family Practice 01/02/14 [facility] [address] [place] [address] Ingrid Santana, RN Registered Nurse Transplant 02/10/12 10/01/15 documented as of this encounter
--- OUTSIDE RECORDS SUMMARY | 2022-03-30 18:54 | XMS_ITS | Encounter Summary ---
:1950 Author Organization [place] Address [facility] [place] [address] Care Team Providers Name Role Phone Toña Jones MD Primary Care Provider Ingrid Santana RN Unavailable Momo Forbes Primary Care Provider Encounter Details Date Type Department Care Team Description 05/04/2011 Historic Results GH CONVERSION Provider, MD Marcela Social History Tobacco Use Types Packs/Day Years Used Date Never Assessed Sex Assigned at Date Recorded Not on file documented as of this encounter Plan of Treatment Not on filedocumented as of this encounter Procedures Procedure Name Priority Date/Time Associated Diagnosis Comme nts EKG CARDIAC - HIM SCAN 05/04/2011 8:29 AM CDT - ARCHIVE LAB RESULT - HIM SCAN - 05/04/2011 8:28 AM CDT ARCHIVE documented in this encounter Results EKG CARDIAC - HIM SCAN - ARCHIVE (05/04/2011 8:29 AM CDT) Specimen (Source) Anatomical Location Collection Method / Collectio n Time Received Time / Laterality Volume Narrative This result has an attachment that is no t available. Marcela Provider ECG ORDERABLES LAB RESULT - HIM SCAN - ARCHIVE (05/04/2011 8:28 AM CDT) Specimen (Source) Anatomical Location Collection Method / Collectio n Time Received Time / Laterality Volume Narrative This result has an attachment that is no t available. Marcela Cordero MD LAB - BLOOD ORDERABLES documented in this encounter Visit Diagnoses Not on filedocumented in this encounter Care Teams Expansion Joint Builder Relationship Specialty Start Date End Date Toña Jones MD PCP - General Nephrology 11/25/11 01/01/14 Momo Forbes PCP - General Family Practice 01/02/14 [facility] [address] [place] [address] Ingrid Santana, RN Registered Nurse Transplant 02/10/12 10/01/15 documented as of this encounter
--- OUTSIDE RECORDS SUMMARY | 2022-03-30 18:54 | XMS_ITS | Encounter Summary ---
:1950 Author Organization [place] Address [address] [place] [address]. [place] [address] Care Team Providers Name Role Phone Toña Jones MD Primary Care Provider Ingrid Santana RN Unavailable Momo Forbes Primary Care Provider Encounter Details Date Type Department Care Team Description 01/12/2010 Historic Results GH CONVERSION Provider, MD Marcela Social History Tobacco Use Types Packs/Day Years Used Date Never Assessed Sex Assigned at Date Recorded Not on file documented as of this encounter Plan of Treatment Not on filedocumented as of this encounter Procedures Procedure Name Priority Date/Time Associated Diagnosis Comme nts LAB RESULT - HIM SCAN - 01/12/2010 8:26 AM CDT ARCHIVE documented in this encounter Results LAB RESULT - HIM SCAN - ARCHIVE (01/12/2010 8:26 AM CDT) Specimen (Source) Anatomical Location Collection Method / Collectio n Time Received Time / Laterality Volume Narrative This result has an attachment that is no t available. Marcela Cordero MD LAB - BLOOD ORDERABLES documented in this encounter Visit Diagnoses Not on filedocumented in this encounter Care Teams Undercover Operator Relationship Specialty Start Date End Date Toña Jones MD PCP - General Nephrology 11/25/11 01/01/14 Momo Forbes PCP - General Family Practice 01/02/14 [facility] [address] [place] [address] Ingrid Santana, RN Registered Nurse Transplant 02/10/12 10/01/15 documented as of this encounter
--- OUTSIDE RECORDS SUMMARY | 2022-03-30 18:54 | XMS_ITS | Encounter Summary ---
:1950 Author Organization [place] Address [address] [place] [address]. [place] [address] Care Team Providers Name Role Phone Toña Jones MD Primary Care Provider Ingrid Santana RN Unavailable Momo Forbes Primary Care Provider Encounter Details Date Type Department Care Team Description 05/12/2011 Historic Results GH CONVERSION Provider, MD Marcela Social History Tobacco Use Types Packs/Day Years Used Date Never Assessed Sex Assigned at Date Recorded Not on file documented as of this encounter Plan of Treatment Not on filedocumented as of this encounter Procedures Procedure Name Priority Date/Time Associated Diagnosis Comme nts LAB RESULT - HIM SCAN - 05/12/2011 8:26 AM CDT ARCHIVE documented in this encounter Results LAB RESULT - HIM SCAN - ARCHIVE (05/12/2011 8:26 AM CDT) Specimen (Source) Anatomical Location Collection Method / Collectio n Time Received Time / Laterality Volume Narrative This result has an attachment that is no t available. Marcela Cordero MD LAB - BLOOD ORDERABLES documented in this encounter Visit Diagnoses Not on filedocumented in this encounter Care Teams Orthotist/Prosthetist Relationship Specialty Start Date End Date Toña Jones MD PCP - General Nephrology 11/25/11 01/01/14 Momo Forbes PCP - General Family Practice 01/02/14 [facility] [address] [place] [address] Ingrid Santana, RN Registered Nurse Transplant 02/10/12 10/01/15 documented as of this encounter
--- OUTSIDE RECORDS SUMMARY | 2022-03-30 18:54 | XMS_ITS | Encounter Summary ---
:1950 Author Organization [place] Address [address] [place] [address]. [place] [address] Care Team Providers Name Role Phone Toña Jones MD Primary Care Provider Ingrid Santana RN Unavailable Momo Forbes Primary Care Provider Encounter Details Date Type Department Care Team Description 05/25/2010 Historic Results GH CONVERSION Provider, MD Marcela Social History Tobacco Use Types Packs/Day Years Used Date Never Assessed Sex Assigned at Date Recorded Not on file documented as of this encounter Plan of Treatment Not on filedocumented as of this encounter Procedures Procedure Name Priority Date/Time Associated Diagnosis Comme nts EKG CARDIAC - HIM SCAN 05/25/2010 8:24 AM CDT - ARCHIVE documented in this encounter Results EKG CARDIAC - HIM SCAN - ARCHIVE (05/25/2010 8:24 AM CDT) Specimen (Source) Anatomical Location Collection Method / Collectio n Time Received Time / Laterality Volume Narrative This result has an attachment that is no t available. Marcela Cordero MD ECG ORDERABLES documented in this encounter Visit Diagnoses Not on filedocumented in this encounter Care Teams Nutrition Services Aide Relationship Specialty Start Date End Date Toña Jones MD PCP - General Nephrology 11/25/11 01/01/14 Momo Forbes PCP - General Family Practice 01/02/14 [facility] [address] [place] [address] Ingrid Santana, RN Registered Nurse Transplant 02/10/12 10/01/15 documented as of this encounter
--- OUTSIDE RECORDS SUMMARY | 2022-03-30 18:54 | XMS_ITS | Encounter Summary ---
:1950 Author Organization [place] Address On license of [facility] [place] [address] Care Team Providers Name Role Phone Toña Jones MD Primary Care Provider Ingrid Santana RN Unavailable Momo Forbes Primary Care Provider Encounter Details Date Type Department Care Team Description 05/06/2010 Historic Results GH CONVERSION Provider, MD Marcela Social History Tobacco Use Types Packs/Day Years Used Date Never Assessed Sex Assigned at Date Recorded Not on file documented as of this encounter Plan of Treatment Not on filedocumented as of this encounter Procedures Procedure Name Priority Date/Time Associated Diagnosis Comme nts EKG CARDIAC - HIM SCAN 05/06/2010 8:29 AM CDT - ARCHIVE LAB RESULT - HIM SCAN - 05/06/2010 8:25 AM CDT ARCHIVE documented in this encounter Results EKG CARDIAC - HIM SCAN - ARCHIVE (05/06/2010 8:29 AM CDT) Specimen (Source) Anatomical Location Collection Method / Collectio n Time Received Time / Laterality Volume Narrative This result has an attachment that is no t available. Marcela Provider ECG ORDERABLES LAB RESULT - HIM SCAN - ARCHIVE (05/06/2010 8:25 AM CDT) Specimen (Source) Anatomical Location Collection Method / Collectio n Time Received Time / Laterality Volume Narrative This result has an attachment that is no t available. Marcela Cordero MD LAB - BLOOD ORDERABLES documented in this encounter Visit Diagnoses Not on filedocumented in this encounter Care Teams Qi Specialist Relationship Specialty Start Date End Date Toña Jones MD PCP - General Nephrology 11/25/11 01/01/14 Momo Forbes PCP - General Family Practice 01/02/14 [facility] [address] [place] [address] Ingrid Santana, RN Registered Nurse Transplant 02/10/12 10/01/15 documented as of this encounter
--- OUTSIDE RECORDS SUMMARY | 2022-03-30 18:54 | XMS_ITS | Encounter Summary ---
:1950 Author Organization [place] Address [address] [place] [address]. [place] [address] Care Team Providers Name Role Phone Toña Jones MD Primary Care Provider Ignrid Santana RN Unavailable Momo Forbes Primary Care Provider Encounter Details Date Type Department Care Team Description 12/13/2005 Historic Results GH CONVERSION Provider, MD Marcela Social History Tobacco Use Types Packs/Day Years Used Date Never Assessed Sex Assigned at Date Recorded Not on file documented as of this encounter Plan of Treatment Not on filedocumented as of this encounter Procedures Procedure Name Priority Date/Time Associated Diagnosis Comme nts EKG CARDIAC - HIM SCAN 12/13/2005 8:26 AM CDT - ARCHIVE documented in this encounter Results EKG CARDIAC - HIM SCAN - ARCHIVE (12/13/2005 8:26 AM CDT) Specimen (Source) Anatomical Location Collection Method / Collectio n Time Received Time / Laterality Volume Narrative This result has an attachment that is no t available. Marcela Cordero MD ECG ORDERABLES documented in this encounter Visit Diagnoses Not on filedocumented in this encounter Care Teams Blank Driller Relationship Specialty Start Date End Date Toña Jones MD PCP - General Nephrology 11/25/11 01/01/14 Momo Forbes PCP - General Family Practice 01/02/14 [facility] [address] [place] [address] Ingrid Santana, RN Registered Nurse Transplant 02/10/12 10/01/15 documented as of this encounter
--- OUTSIDE RECORDS SUMMARY | 2022-03-30 18:54 | XMS_ITS | Encounter Summary ---
:1950 Author Organization [place] Address [address] [place] [address]. [place] [address] Care Team Providers Name Role Phone Toña Jones MD Primary Care Provider Ingrid Santana RN Unavailable Momo Forbes Primary Care Provider Encounter Details Date Type Department Care Team Description 01/06/2011 Historic Results GH CONVERSION Provider, MD Marcela Social History Tobacco Use Types Packs/Day Years Used Date Never Assessed Sex Assigned at Date Recorded Not on file documented as of this encounter Plan of Treatment Not on filedocumented as of this encounter Procedures Procedure Name Priority Date/Time Associated Diagnosis Comme nts LAB RESULT - HIM SCAN - 01/06/2011 8:27 AM CDT ARCHIVE documented in this encounter Results LAB RESULT - HIM SCAN - ARCHIVE (01/06/2011 8:27 AM CDT) Specimen (Source) Anatomical Location Collection Method / Collectio n Time Received Time / Laterality Volume Narrative This result has an attachment that is no t available. Marcela Cordero MD LAB - BLOOD ORDERABLES documented in this encounter Visit Diagnoses Not on filedocumented in this encounter Care Teams Hide Puller Relationship Specialty Start Date End Date Toña Jones MD PCP - General Nephrology 11/25/11 01/01/14 Momo Forbes PCP - General Family Practice 01/02/[address] [address] Ingrid Santana, RN Registered Nurse Transplant 02/10/12 10/01/15 documented as of this encounter
--- OUTSIDE RECORDS SUMMARY | 2022-03-30 18:54 | XMS_ITS | Encounter Summary ---
:1950 Author Organization [place] Address [address] [facility] [place] [address] Care Team Providers Name Role Phone Toña Jones MD Primary Care Provider Ingrid Santana RN Unavailable Momo Forbes Primary Care Provider Encounter Details Date Type Department Care Team Description 06/02/2010 Historic Results GH CONVERSION Provider, MD Marcela Social History Tobacco Use Types Packs/Day Years Used Date Never Assessed Sex Assigned at Date Recorded Not on file documented as of this encounter Plan of Treatment Not on filedocumented as of this encounter Procedures Procedure Name Priority Date/Time Associated Diagnosis Comme nts LAB RESULT - HIM SCAN - 06/02/2010 8:28 AM CDT ARCHIVE LAB RESULT - HIM SCAN - 06/02/2010 8:26 AM CDT ARCHIVE documented in this encounter Results LAB RESULT - HIM SCAN - ARCHIVE (06/02/2010 8:28 AM CDT) Specimen (Source) Anatomical Location Collection Method / Collectio n Time Received Time / Laterality Volume Narrative This result has an attachment that is no t available. Marcela Provider LAB - BLOOD ORDERABLES LAB RESULT - HIM SCAN - ARCHIVE (06/02/2010 8:26 AM CDT) Specimen (Source) Anatomical Location Collection Method / Collectio n Time Received Time / Laterality Volume Narrative This result has an attachment that is no t available. Marcela Provider LAB - BLOOD ORDERABLES documented in this encounter Visit Diagnoses Not on filedocumented in this encounter Care Teams Follow Up Specialist Relationship Specialty Start Date End Date Toña Jones MD PCP - General Nephrology 11/25/11 01/01/14 Momo Forbes PCP - General Family Practice 01/02/14 [facility] [address] [place] [address] Ingrid Santana, RN Registered Nurse Transplant 02/10/12 10/01/15 documented as of this encounter
--- OUTSIDE RECORDS SUMMARY | 2022-03-30 18:54 | XMS_ITS | Encounter Summary ---
:1950 Author Organization [place] Address [address] [place] [address]. [place] [address] Care Team Providers Name Role Phone Toña Jones MD Primary Care Provider Ingrid Santana RN Unavailable Momo Forbes Primary Care Provider Encounter Details Date Type Department Care Team Description 06/05/2008 Historic Results GH CONVERSION Provider, MD Marcela Social History Tobacco Use Types Packs/Day Years Used Date Never Assessed Sex Assigned at Date Recorded Not on file documented as of this encounter Plan of Treatment Not on filedocumented as of this encounter Procedures Procedure Name Priority Date/Time Associated Diagnosis Comme nts EKG CARDIAC - HIM SCAN 06/05/2008 1:52 PM CDT - ARCHIVE documented in this encounter Results EKG CARDIAC - HIM SCAN - ARCHIVE (06/05/2008 1:52 PM CDT) Specimen (Source) Anatomical Location Collection Method / Collectio n Time Received Time / Laterality Volume Narrative This result has an attachment that is no t available. Marcela Cordero MD ECG ORDERABLES documented in this encounter Visit Diagnoses Not on filedocumented in this encounter Care Teams Production Line Worker Relationship Specialty Start Date End Date Toña Jones MD PCP - General Nephrology 11/25/11 01/01/14 Momo Forbes PCP - General Family Practice 01/02/14 [facility] [address] [place] [address] Ingrid Santana, RN Registered Nurse Transplant 02/10/12 10/01/15 documented as of this encounter
--- OUTSIDE RECORDS SUMMARY | 2022-03-30 18:54 | XMS_ITS | Encounter Summary ---
:1950 Author Organization [place] Address [facility] [place] [address] Care Team Providers Name Role Phone Toña Jones MD Primary Care Provider Ingrid Santana RN Unavailable Momo Forbes Primary Care Provider Encounter Details Date Type Department Care Team Description 08/30/2011 Historic Results CONVERSION ProviderMarcela MD Social History Tobacco Use Types Packs/Day Years Used Date Never Assessed Sex Assigned at Date Recorded Not on file documented as of this encounter Plan of Treatment Not on filedocumented as of this encounter Procedures Procedure Name Priority Date/Time Associated Diagnosis Comme nts EKG CARDIAC - HIM SCAN 08/30/2011 8:28 AM ALL PURPOSE CLERK - ARCHIVE ECHO CARDIAC - HIM SCAN 08/30/2011 8:27 AM ALL PURPOSE CLERK - ARCHIVE documented in this encounter Results EKG CARDIAC - HIM SCAN - ARCHIVE (08/30/2011 8:28 AM ALL PURPOSE CLERK) Specimen (Source) Anatomical Location Collection Method / Collectio n Time Received Time / Laterality Volume Narrative This result has an attachment that is no t available. Marcela Provider ECG ORDERABLES ECHO CARDIAC - HIM SCAN - ARCHIVE (08/30/2011 8:27 AM ALL PURPOSE CLERK) Specimen (Source) Anatomical Location Collection Method / Collectio n Time Received Time / Laterality Volume Narrative This result has an attachment that is no t available. Marcela Provider CV ECHO ORDERABLES documented in this encounter Visit Diagnoses Not on filedocumented in this encounter Care Teams Chairperson Anesthesiology Relationship Specialty Start Date End Date Toña Jones MD PCP - General Nephrology 11/25/11 01/01/14 Momo Forbes PCP - General Family Practice 01/02/14 [facility] [address] [place] [address] Ingrid Santana, RN Registered Nurse Transplant 02/10/12 10/01/15 documented as of this encounter
--- OUTSIDE RECORDS SUMMARY | 2022-03-30 18:54 | XMS_ITS | Encounter Summary ---
:1950 Author Organization [place] Address [address] [place] [address]. [place] [address] Care Team Providers Name Role Phone Toña Jones MD Primary Care Provider Ingrid Santana RN Unavailable Momo Forbes Primary Care Provider Encounter Details Date Type Department Care Team Description 01/02/2008 Historic Results GH CONVERSION Provider, MD Marcela Social History Tobacco Use Types Packs/Day Years Used Date Never Assessed Sex Assigned at Date Recorded Not on file documented as of this encounter Plan of Treatment Not on filedocumented as of this encounter Procedures Procedure Name Priority Date/Time Associated Diagnosis Comme nts SLEEP STUDY - HIM SCAN 01/02/2008 1:51 PM CDT - ARCHIVE documented in this encounter Results SLEEP STUDY - HIM SCAN - ARCHIVE (01/02/2008 1:51 PM CDT) Specimen (Source) Anatomical Location Collection Method / Collectio n Time Received Time / Laterality Volume Narrative This result has an attachment that is no t available. Marcela Cordero MD PFT ORDERABLES documented in this encounter Visit Diagnoses Not on filedocumented in this encounter Care Teams Web Master Relationship Specialty Start Date End Date Toña Jones MD PCP - General Nephrology 11/25/11 01/01/14 Momo Forbes PCP - General Family Practice 01/02/[address] [address] Ingrid Santana, RN Registered Nurse Transplant 02/10/12 10/01/15 documented as of this encounter
--- OUTSIDE RECORDS SUMMARY | 2022-03-30 18:54 | XMS_ITS | Encounter Summary ---
:1950 Author Organization [place] Address [address] [facility] [place] [address] Care Team Providers Name Role Phone Unavailable Primary Care Provider Unavailable Encounter Details Date Type Department Care Team Description 07/30/2009 Results [facility] Results [address] [id number] Social History Tobacco Use Types Packs/Day Years Used Date Never Assessed Sex Assigned at Date Recorded Not on file documented as of this encounter Plan of Treatment Not on filedocumented as of this encounter Procedures Procedure Name Priority Date/Time Associated Diagnosis Comme [facility] RT DUPLEX Routine 07/30/2009 12:32 PM Results for this EXTREM VENOUS,UNI CAR RACER procedure are in OR LTD the results section. documented in this encounter Results RT DUPLEX EXTREM VENOUS,UNI OR LTD (07/30/2009 12:32 PM CAR RACER) Specimen (Source) Anatomical Collection Method Collection Time Re ceived Time Location / / Volume Laterality 07/30/2009 12:32 PM CAR RACER Impressions RADIOLOGY RESULTS - 07/30/2009 4:[address] ULTRASOUND VENOUS LOWER EXTREMITY UNILAT ERAL RIGHT ??Jul 30, 2009 12:32 PM HISTORY: Right knee pain and swelling. FINDINGS: There is normal compressibilit y, phasicity augmentation, and patency of the right common femoral, sup erficial femoral, popliteal, and visualized posterior tibial veins as well as the greater saphenous vein, but no thrombus seen. There is a 5 .9 x 3.6 x 2.4 cm nonvascular fluid collection in the medial popliteal fossa consistent with a popliteal cyst. IMPRESSION: 1. No evidence of deep vein thrombosis o r greater saphenous vein thrombosis in the right leg. 2. Right popliteal cyst. Florin Randolph [employer] Performing Organization Address City/State/ZIP Code Phon e Number RADIOLOGY RESULTS documented in this encounter Visit Diagnoses Not on filedocumented in this encounter
--- OUTSIDE RECORDS SUMMARY | 2022-03-30 18:54 | XMS_ITS | Encounter Summary ---
:1950 Author Organization [place] Address [address] [place] [address]. [place] [address] Care Team Providers Name Role Phone Toña Jones MD Primary Care Provider Ingrid Santana RN Unavailable Momo Forbes Primary Care Provider Encounter Details Date Type Department Care Team Description 05/20/2010 Historic Results GH CONVERSION Provider, MD Marcela Social History Tobacco Use Types Packs/Day Years Used Date Never Assessed Sex Assigned at Date Recorded Not on file documented as of this encounter Plan of Treatment Not on filedocumented as of this encounter Procedures Procedure Name Priority Date/Time Associated Diagnosis Comme nts EKG CARDIAC - HIM SCAN 05/20/2010 8:28 AM CDT - ARCHIVE documented in this encounter Results EKG CARDIAC - HIM SCAN - ARCHIVE (05/20/2010 8:28 AM CDT) Specimen (Source) Anatomical Location Collection Method / Collectio n Time Received Time / Laterality Volume Narrative This result has an attachment that is no t available. Marcela Cordero MD ECG ORDERABLES documented in this encounter Visit Diagnoses Not on filedocumented in this encounter Care Teams Beveling Machine Operator Relationship Specialty Start Date End Date Toña Jones MD PCP - General Nephrology 11/25/11 01/01/14 Momo Forbes PCP - General Family Practice 01/02/14 [facility] [address] [place] [address] Ingrid Santana, RN Registered Nurse Transplant 02/10/12 10/01/15 documented as of this encounter
== END 2022-03-10 10:59 | disposition home or self-care (01) ==
LOC: WOUND 10:59
PROVIDERS: PCP Family Medicine; Visit Provider Surgery
DX: E11.622 Type 2 diabetes mellitus with other skin ulcer (principal); L89.893 Pressure ulcer of other site, stage 3; Z79.4 Long term (current) use of insulin
CPT/HCPCS: 97597

== ENCOUNTER 2022-03-17 10:16 | Outpatient (CLI) | payer MEDICARE, BC, SELFPAY | END 2022-03-17 10:17 | disposition home or self-care (01) | LOC: WOUND 10:16 | PROVIDERS: PCP Family Medicine; Visit Provider Surgery | DX: E11.622 Type 2 diabetes mellitus with other skin ulcer (principal); L89.893 Pressure ulcer of other site, stage 3; Z79.4 Long term (current) use of insulin | CPT/HCPCS: 99212 ==

== ENCOUNTER 2022-04-07 11:01 | Outpatient (CLI) | payer MEDICARE, BC, SELFPAY ==
--- OUTSIDE RECORDS SUMMARY | 2022-04-07 11:03 | XMS_ITS | Encounter Summary ---
:1950 Author Organization [place] Address [facility] [place] [address] Care Team Providers Name Role Phone Momo Forbes Primary Care Provider Joseph Quintana MD Unavailable Reason for Visit Reason Onset Date Comments Transplant 12/02/2021 Encounter Details Date Type Department Care Team Description 12/02/2021 Telephone [facility] Transplant Obdulia Peacock, chin strap cutter Clinic [address] [place] [address] [phone] Social History Tobacco Use Types Packs/Day [...] to confirm he received message. Gretta Peacock chin strap cutterCamera Storage Clerk [phone] ADDENDUM: left message for patient stating he has active orders at preferred lab. Asked to please obtain a full set of transplant labs as soon as possible. Gretta Peacock chin strap cutterCamera Storage Clerk [phone] documented in this encounter Plan of Treatment Not on filedocumented as of this encounter Visit Diagnoses Not on filedocumented in this encounter Care Teams Hvac Engineer Relationship Specialty Start Date End Date Momo Forbes PCP - General Family Practice 01/02/14 [facility] [address] [place] [address] Joseph Quintana, Assigned Nephrology 03/29/[address] [place] [address] [address] [place] [address] documented as of this encounter
--- OUTSIDE RECORDS SUMMARY | 2022-04-07 11:03 | XMS_ITS | Encounter Summary ---
:1950 Author Organization [place] Address [facility] [place] [address] Care Team Providers Name Role Phone Momo Forbes Primary Care Provider Joseph Quintana MD Unavailable Reason for Visit Reason Onset Date Comments Transplant Lab 12/10/2021 Encounter Details Date Type Department Care Team Description 12/10/2021 Telephone [facility] Transplant Mati Recinos RN Transplant Lab Clinic [address] [place] [address] [phone] Social History Tobacco Use Types Packs/Day [...] on filedocumented in this encounter Care Teams Gis Instructor Relationship Specialty Start Date End Date Momo Forbes PCP - General Family Practice 01/02/14 [facility] [address] [place] [address] Joseph Quintana, Assigned Nephrology 03/29/21 MD Provider [address] [facility] [address] [facility] [address] [place] [address] documented as of this encounter
--- OUTSIDE RECORDS SUMMARY | 2022-04-07 11:03 | XMS_ITS | Encounter Summary ---
:1950 Author Organization [place] Address [address] [facility] [place] [address] Care Team Providers Name Role Phone Forbes, Ton Primary Care Provider Reason for Visit Reason Comments RECHECK Follow Up [place] Encounter Details Date Type Department Care Team Description 03/05/2021 Virtual Visit [facility] Joseph Quintana HTN, ki dney transplant related (Primary Dx); Nephrology Clinic MD Herminio Kidney replaced by transplant; [address] Aftercare following organ tr ansplant; [address] [place] [address] SE RANJAN [address] [facility] Immunosu ppression (H); [address] Vitamin D deficiency; [place] [phone] [phone] Social History Tobacco Use Types Packs/Day Years [...] would you like to be contacted at? [phone] How would you like to obtain your [...] and ended up being discharged to a penitentiary. He is doing better and now back [...] unspecified documented in this encounter Care Teams Dramatic Coach Relationship Specialty Start Date End Date Momo Forbes PCP - General Family Practice 01/02/14 [facility] [address] [place] [address] documented as of this encounter
--- OUTSIDE RECORDS SUMMARY | 2022-04-07 11:03 | XMS_ITS | Encounter Summary ---
:1950 Author Organization [place] Address Formerly [facility], [id number] [facility] [place] [address] Care Team Providers Name Role Phone Momo Forbes Primary Care Provider Reason for Visit Reason Onset Date Comments Transplant 01/07/2021 Encounter Details Date Type Department Care Team Description 01/07/2021 Telephone [facility] Barbie Ugaldelanlynda Transplant Clinic BOGDAN Nam [address] [place] [address] [phone] Social History Tobacco Use Types Packs/Day [...] CDT Patient Call: Transplant Lab/Orders Route to PHLEBOTOMY PROGRAM COORDINATOR Post Transplant Days: 2530 When patient is less than 60 days post-transplant, route high priority Reason for Call: Annual lab reorder fax labs to [facility] lab at [phone] Labs drawn Waiting fororders Callback needed? No documented in this encounter Plan of Treatment Not on filedocumented as of this encounter Visit Diagnoses Not on filedocumented in this encounter Care Teams Supervisor Belt And Link Assembly Relationship Specialty Start Date End Date Momo Forbes PCP - General Family Practice 01/02/14 [facility] [address] [place] [address] documented as of this encounter
--- OUTSIDE RECORDS SUMMARY | 2022-04-07 11:03 | XMS_ITS | Encounter Summary ---
:1950 Author Organization [place] Address [address] [place] [address]. [place] [address] Care Team Providers Name Role Phone Momo [...] on filedocumented in this encounter Care Teams Pipeline Construction Inspector Relationship Specialty Start Date End Date Momo Forbes PCP - General Family Practice 01/02/14 [facility] [address] [place] [address] documented as of this encounter
--- OUTSIDE RECORDS SUMMARY | 2022-04-07 11:03 | XMS_ITS | Encounter Summary ---
:1950 Author Organization [place] Address [facility] [place] [address] Care Team Providers Name Role Phone Momo Forbes Primary Care Provider Joseph Quintana MD Unavailable Encounter Details Date Type Department Care Team Description 01/27/2021 External Order [facility] Outside, Provider Results Transplant Clinic [address] [place] [address] Social History Tobacco Use Types [...] Basic metabolic panel (01/27/2021 11:45 AM CDT) [facility] gist Method Time Signature Glucose 156 (H) [...] with platelets differential (01/27/2021 11:45 AM CDT) [facility] gist Method Time Signature WBC Count 5.08 [...] filedocumented in this encounter Care Teams Laborer Pie Bakery Relationship Specialty Start Date End Date Momo Forbes PCP - General Family Practice 01/02/14 [facility] [address] [place] [address] Joseph Quintana, Assigned Nephrology 03/29/[address] [place] [address] [address] [place] [address] documented as of this encounter
--- OUTSIDE RECORDS SUMMARY | 2022-04-07 11:03 | XMS_ITS | Encounter Summary ---
:1950 Author Organization [place] Address [address] [place] [address] Care Team Providers Name Role Phone Momo Forbes Primary Care Provider Joseph Quintana MD Unavailable Reason for Visit Reason Onset Date Comments Transplant Lab 05/04/2021 Encounter Details Date Type Department Care Team Description 05/04/2021 Telephone [facility] Transplant Krys Garcia, Transplant Lab Clinic RN [address] [place] [phone] Social History Tobacco Use Types [...] maroon colored stools. he had colonoscopy with [place] about a year ago. Appears in CareEverywhere colonoscopy was 03/20/2015. Latrell denies infectious symptoms currently but reports he had R foot surgery at [place] this last winter for diabetic foot ulcer. Infection in bottom of foot; laid up since Sep. Pretty well healed except a little speck. Follows up with Dr. Chatterjee. Will check iron panel on next labs. Orders sent. Barbie Ugalde RN, BSN Solid Organ Transplant, Post Kidney and Pancreas Transplant Team Manager [phone] Telephone Encounter - Krys Garcia RN - 05/04/2021 8:09 AM CDT ISSUE: Falling hemoglobin. documented in this encounter Plan of Treatment Not on filedocumented as of this encounter Visit Diagnoses Not on filedocumented in this encounter Care Teams Customer Marketing Manager Relationship Specialty Start Date End Date Momo Forbes PCP - General Family Practice 01/02/14 [facility] [address] [place] [address] Joseph Quintana, Assigned Nephrology 03/29/21 MD Provider [address] [facility] 353 [facility] [address] [place] [address] documented as of this encounter
--- OUTSIDE RECORDS SUMMARY | 2022-04-07 11:03 | XMS_ITS | Encounter Summary ---
:1950 Author Organization [place] Address [address] [place] [address] Care Team Providers Name Role Phone Momo Forbes Primary Care Provider Joseph Quintana MD Unavailable Encounter Details Date Type Department Care Team Description 01/19/2022 External Order [facility] Outside, Provide r Results Molecular Diagnostic s [address] [place] [address] Social History Tobacco Use Types Packs/Day Years [...] UA with Microscopic (01/19/2022 11:16 AM CDT) [facility] gist Method Time Signature Color Urine YEL YELLOW NON-INTERFAC (External) ED (ONBASE SCANS) Appearance Urine CLEAR CLEAR NON-INTERFAC (External) ED (ONBASE SCANS) Glucose Urine 2+ NEGATIVE NON-INTERFAC (External) ED (ONBASE SCANS) Bilirubin Urine NEG NEGATIVE NON-INTERFAC (External) ED (ONBASE SCANS) Ketones Urine NEG NEGATIVE NON-INTERFAC (External) ED (ONBASE SCANS) Specific [place] 1.010 1.005 - NON-INTERFAC Urine (External) 1.030 [...] on filedocumented in this encounter Care Teams Roll Coating Machine Operator Relationship Specialty Start Date End Date Momo Forbes PCP - General Family Practice 01/02/14 [facility] [address] [place] [address] Joseph Quintana, Assigned Nephrology 03/29/[address] [place] [address] [address] [place], [place] [id number] documented as of this encounter
--- OUTSIDE RECORDS SUMMARY | 2022-04-07 11:03 | XMS_ITS | Encounter Summary ---
:1950 Author Organization [place] Address [facility] [place] [address] Care Team Providers Name Role Phone Momo Forbes Primary Care Provider Joseph Quintana MD Unavailable Encounter Details Date Type Department Care Team Description 02/02/2021 External Order [facility] Outside, Provider Results Transplant Clinic [address] [place] [phone] Social History Tobacco Use Types Packs/Day [...] by Cassie Florian on 02/04/2021. Performed by: [facility] [address] [place], [place] ??[address] Patient Reported LABORATORY Performing Organization Address City/State/ZIP Code Phon e Number [facility] COVID-19 EXTERNAL COVID-[address] RESULTS Result Scanned into Patient Record by Lab42 Refer to Result Comment/Narrative for exact performing laboratory documented in this encounter Visit Diagnoses Not on filedocumented in this encounter Care Teams Camp Program Director Relationship Specialty Start Date End Date Momo Forbes PCP - General Family Practice 01/02/14 [facility] [address] [place] [address] Joseph Quintana, Assigned Nephrology 03/29/21 MD Provider [address] [facility] 353 [facility] [address] [place] [address] documented as of this encounter
--- OUTSIDE RECORDS SUMMARY | 2022-04-07 11:03 | XMS_ITS | Clinical Summary ---
:1950 Author Organization [place] Address [facility] [place] [address] Care Team Providers Name Role Phone Momo [...] Problem list name updated by automated p [employer]. Provider to review Gout 12/02/2011 Peripheral neuropathy 12/02/2011 Diabetic retinopathy 12/02/2011 HTN, kidney transplant related 12/02/2011 Overview: Problem list name updated by automated p [employer]. Provider to review DM (diabetes mellitus), type 2 12/02/2011 History of tobacco use 12/02/2011 Thrombocytopenia 12/02/2011 Malaise and fatigue 12/02/2011 Overview: Problem list name updated by automated p [employer]. Provider to review Depression Resolved Problems Problem [...] Comments Blood Pressure 169/76 10/09/2019 2:35 PM SHINGLES ROOFER Pulse 67 10/09/2019 2:35 PM SHINGLES ROOFER Temperature 36.5 ??C (97.7 ??F) 10/17/2018 1:54 PM SHINGLES ROOFER Respiratory Rate 18 10/25/2016 4:39 PM SHINGLES ROOFER Oxygen Saturation 95% 10/09/2019 2:35 PM SHINGLES ROOFER Inhaled Oxygen Concentration - - Weight 132.5 kg (292 lb 1.6 oz) 10/09/2019 2:35 PM SHINGLES ROOFER Height 182.9 cm (6') 10/10/2017 2:25 PM SHINGLES ROOFER Body Mass Index 39.62 10/10/2017 2:25 PM SHINGLES ROOFER Plan of Treatment Health Maintenance Due Date Last Done Comments ADVANCE CARE PLANNING 1950 ANNUAL REVIEW OF HM ORDERS 1950 CT COLONOGRAPHY 1950 DIABETIC FOOT EXAM 1950 EYE EXAM 1950 FIT-DNA (Cologuard) 1950 FIT 1950 FLEX SIG 1950 COLONOSCOPY 1960 COLORECTAL CANCER SCREENING 1960 ZOSTER IMMUNIZATION (1 of 1969 2) LUNG CANCER SCREENING 2000 AORTIC ANEURYSM SCREENING 2015 (SYSTEM ASSIGNED) MEDICARE [...] this topic Medical Devices Explanted Type Area Electronics Manufacturer Device Shelf Model / Identifier Expiration Serial / Date Lot Stent Ureteral Childress Renal Transplant [id number] Right: [employer] 11/19/2016 [id number] / Implanted: Qty: 1 on 02/02/2014 by Migel Viveros MD at [facility] [employer] / Explanted: Qty: 1 on 04/01/2014 by Celina Helton MD at [facility] [id number] Procedures Procedure Name Priority Date/Time Associated Comments [...] NEGATIVE NON-INTERFAC (External) ED (ONBASE SCANS) Specific [place] 1.010 1.005 - NON-INTERFAC Urine (External) 1.030 [...] Address T ype Group Dates MEDICARE MEDICARE [id number] 2011-Prese [phone] ATTN RONEN [place] Medicare nt 40 [address] [place] [address] BCBS BCBS OF [place] [id number] 2016-Prese [phone] [address] [address] Indemnity nt 00 [place] [address] Diego Guthrie Personal/Family Self 1950 [address]Home) [place] [address] Advance Directives For more information, please contact: [phone] Latest Code Status on File Code Status Date Activated Date Inactivated Comments Full Code 04/01/2014 9:03 AM Full Code 02/08/2014 7:12 AM 04/01/2014 9:03 AM Full Code 02/03/2014 12:56 AM 02/08/2014 7:12 AM Care Teams Picker Feeder Relationship Specialty Start Date End Date Momo Forbes PCP - General Family Practice 01/02/14 [facility] [address] [place] [address] Joseph Quintana, Assigned Nephrology 03/29/21 MD Provider 717 [facility] 353 [facility] [address] [place] [address]
--- OUTSIDE RECORDS SUMMARY | 2022-04-07 11:03 | XMS_ITS | Encounter Summary ---
:1950 Author Organization [place] Address [address] [place] [address]. [place] [address] Care Team Providers Name Role Phone Momo Forbes Primary Care Provider Joseph Quintana MD Unavailable Reason for Visit Reason Onset Date Comments Refill Request 08/25/2021 Encounter Details Date Type Department Care Team Description 08/25/2021 Refill [facility] Transplant Debbie Calderon LPN Refill Request Clinic [address] [place] [address] [phone] Social History Tobacco Use Types Packs/Day [...] transplant documented in this encounter Care Teams Food Cooking Machine Operator Relationship Specialty Start Date End Date Momo Forbes PCP - General Family Practice 01/02/14 [facility] [address] [place] [address] Joseph Quintana, Assigned Nephrology 8/8/21 MD Provider 7 [facility] 353 [facility] 1932 [place], [place] [address] documented as of this encounter
--- OUTSIDE RECORDS SUMMARY | 2022-04-07 11:03 | XMS_ITS | Encounter Summary ---
:1950 Author Organization [place] Address [facility] [place] [address] Care Team Providers Name Role Phone Momo Forbes A Primary Care Provider Encounter Details Date Type Department Care Team Description 01/30/2021 Telephone [facility] Transplant Viv Torres, BOGDAN [place] [phone] Social History Tobacco Use Types Packs/Day [...] not included. Message Received: Today Beny Staton, [facility] Barbie Ugalde, RN Diego has not ordered tacro 0.5mg in over a year. ??He just ordered 1mg today but not the 0.5mg. Beny Staton [facility] Specialty Pharmacist [phone] GAME WARDEN task: Can you please call Diego to find out what dose of tacrolimus he is taking and notify coordinator if different than what is prescribed. Recommend repeat tacrolimus level for previously elevated level 7.3, goal 4-6. Thank you, Barbie Ugalde RN, BSN Solid Organ Transplant, Post Kidney and Pancreas Transplant Spot Welder Line [phone] Telephone Encounter - Viv Torres RN - [...] documented in this encounter Care Teams Manager Pacu Relationship Specialty Start Date End Date Momo Forbes PCP - General Family Practice 01/02/14 [facility] [address] [place] [id number] documented as of this encounter
--- OUTSIDE RECORDS SUMMARY | 2022-04-07 11:03 | XMS_ITS | Encounter Summary ---
:1950 Author Organization [place] Address [address] [place] [address] Care Team Providers Name Role Phone Momo Forbes Primary Care Provider Joseph Quintana MD Unavailable Encounter Details Date Type Department Care Team Description 12/09/2021 External Order [facility] Outside, Provide r Results Molecular Diagnostic s [address] [place] [address] Social History Tobacco Use Types Packs/Day Years [...] on filedocumented in this encounter Care Teams Ballistics Laboratory Gunsmith Relationship Specialty Start Date End Date Momo Forbes PCP - General Family Practice 01/02/14 [facility] [address] [place] [address] Joseph Quintana, Assigned Nephrology 03/29/21 Provider 717 [facility] 353 [facility] [address] [place] [address] documented as of this encounter
--- OUTSIDE RECORDS SUMMARY | 2022-04-07 11:03 | XMS_ITS | Encounter Summary ---
:1950 Author Organization [place] Address [address] [place] [address]. [place] [address] Care Team Providers Name Role Phone Momo Forbes Primary Care Provider Joseph Quintana MD Unavailable Reason for Visit Reason Onset Date Comments Refill Request 08/25/2021 Prograf 0.5mg Encounter Details Date Type Department Care Team Description 08/25/2021 Telephone [facility] [place] Richey, Refil l Request (Prograf Transplant Clinic 0.5mg) [address] [place] [phone] Social History Tobacco Use Types [...] Miscellaneous Notes Telephone Encounter - Meghan Mccormack [facility] - 08/25/2021 2:15 PM CST Medication/Refill approved per CPA: [facility] COLLABORATIVE AGREEMENT FOR IMMUNOSUPPRESSENT PRESCRIPTION MODIFICATION. Routing encounter to Transplant as an FYI. 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
--- OUTSIDE RECORDS SUMMARY | 2022-04-07 11:03 | XMS_ITS | Encounter Summary ---
:1950 Author Organization [place] Address [address] [place] [address]. [place] [address] Care Team Providers Name Role Phone Momo Forbes Primary Care Provider Joseph Quintana MD Unavailable Encounter Details Date Type Department Care Team Description 08/25/2021 Orders Only [facility] Jose, Kidney tr ansplanted; Transplant Clinic BOGDAN Marcano -donor kidney transp lant recipient [address] [place] [phone] Social History Tobacco Use Types Packs/Day [...] transplant documented in this encounter Care Teams Marine Engine Mechanic Relationship Specialty Start Date End Date Momo Forbes PCP - General Family Practice 01/02/14 [facility] [address] [place] [address] Joseph Quintana, Assigned Nephrology 03/29/21 Provider 7 [facility] 353 [facility] 1932 [place], [place] [address] documented as of this encounter
--- OUTSIDE RECORDS SUMMARY | 2022-04-07 11:03 | XMS_ITS | Encounter Summary ---
:1950 Author Organization [place] Address [facility] [place] [address] Care Team Providers Name Role Phone ForbesMomo Primary Care Provider Reason for Visit Reason Onset Date Comments Transplant 10/23/2020 Encounter Details Date Type Department Care Team Description 10/23/2020 Telephone [facility] Barbie [facility] Trans[facility] Clinic BOGDAN Nam [address] [place] [address] [phone] Social History Tobacco Use Types Packs/Day [...] Barbie Ugalde RN - 10/23/2020 1:10 PM CAR WORKER Latrell reports his labs were done yesterday morning at [facility]. Last night ended upat ER at [facility]. Hospital printed out copy of labs and he is worried about creatinine. Latrell states he had R foot infection that needed to be cleaned out; Had surgery last day of August onfoot at [place]. Was hospitalized 10 days before going to assisted for recovery. Last night his blood sugar was dropping low into 70s and assisted staff thought his BP was jumping around to much. This morning is BP 130/76, but last night 170s. Explained to Latrell that it has been a year since lastnephrology appointment and he needs to be seen for transplant follow up. He agreed but did not want to schedule at this time but will call back to schedule. Call placed to [facility] lab to fax results. Per Lab need to speak with information management department to release records or go thru [facility] to have orders faxed. Call then [...] and repeating post-transplant labs in 1-2 weeks. WORKER Telephone Encounter - Tasia Mack - 10/23/2020 10:03 AM CST Patient Call: Transplant Lab/Orders Route to OVEN HEATER HELPER Post Transplant Days: 2455 When patient is less than 60 days post-transplant, route high priority Reason for Call: Discuss lab results; which results? creatine level Callback needed? Yes Return Call Needed Same as documented in contacts section When to return call?: Greater than one day: Route standard priority WORKER documented in this encounter Plan of Treatment Not on filedocumented as of this encounter Visit Diagnoses Not on filedocumented in this encounter Care Teams Spread Cutter Relationship Specialty Start Date End Date Momo Forbes PCP - General Family Practice 01/02/14 [facility] [address] [place] [address] documented as of this encounter
--- OUTSIDE RECORDS SUMMARY | 2022-04-07 11:03 | XMS_ITS | Encounter Summary ---
:1950 Author Organization [place] Address [facility] [place] [address] Care Team Providers Name Role Phone Momo Forbes Primary Care Provider Joseph Quintana MD Unavailable Encounter Details Date Type Department Care Team Description 08/08/2020 External Order [facility] Outside, Provider Results Transplant Clinic [address] [place] [phone] Social History Tobacco Use Types Packs/Day [...] 08/08/2020 11:43 Results f or this AM AGRICULTURAL SCIENCE PROFESSOR procedure are i n the results section. TACROLIMUS BY TANDEM Routine 08/08/2020 11:34 Res ults for this MASS SPECTROMETRY AM AGRICULTURAL SCIENCE PROFESSOR procedure are in the results section. LIPID PROFILE Routine 08/08/2020 11:34 Results fo r this AM AGRICULTURAL SCIENCE PROFESSOR procedure are i n the results section. ALT Routine 08/08/2020 11:34 Results for this AM AGRICULTURAL SCIENCE PROFESSOR procedure are i n the results section. BASIC METABOLIC PANEL Routine 08/08/2020 11:34 Re sults for this AM AGRICULTURAL SCIENCE PROFESSOR procedure are i n the results section. documented in this encounter Results (ABNORMAL) Hemoglobin A1c (08/08/2020 11:43 AM AGRICULTURAL SCIENCE PROFESSOR) Analysis Performed At Patho logist Time Signature Hemoglobin A1C 10.2 (H) <=6.9 % LABDE SCAN (External) Specimen (Source) Anatomical Collection Method Collection Time Re ceived Time Location / / Volume Laterality Blood specimen 08/08/2020 11:43 (specimen) AM AGRICULTURAL SCIENCE PROFESSOR Narrative [facility] - 08/11/2020 1:28 PM AGRICULTURAL SCIENCE PROFESSOR Verified by Praful Huff on 2019. Patient Reported LAB - BLOOD ORDERABLES Performing Organization Address City/State/ZIP Code Phon e Number [facility] LABDE SCAN Tacrolimus level (08/08/2020 11:34 AM AGRICULTURAL SCIENCE PROFESSOR) athologist Signature Tacrolimus(FK-5 11.7 See scan LABDE SCAN 06) (External) ng/mL Specimen (Source) Anatomical Collection Method Collection Time Re ceived Time Location / / Volume Laterality Blood specimen 08/08/2020 11:34 (specimen) AM AGRICULTURAL SCIENCE PROFESSOR Narrative [facility] - 08/11/2020 1:28 PM AGRICULTURAL SCIENCE PROFESSOR Verified by Praful Huff on 2019. Patient Reported LAB - BLOOD ORDERABLES Performing Organization Address City/State/ZIP Code Phon e Number [facility] LABDE SCAN (ABNORMAL) Lipid Profile (08/08/2020 11:34 AM AGRICULTURAL SCIENCE PROFESSOR) [facility] gist Method Time Signature Cholesterol 79 (L) 90 - 200 LABDE SCAN (External) MG/DL Triglycerides 86 40 - 197 LABDE SCAN (External) MG/DL LDL-Cholesterol 29 <100 mg/dL LABDE SCAN (External) HDL Cholesterol 33 (L) >=40 mg/dL LABDE SCAN (External) Specimen (Source) Anatomical Collection Method Collection Time Re ceived Time Location / / Volume Laterality Blood specimen 08/08/2020 11:34 (specimen) AM AGRICULTURAL SCIENCE PROFESSOR Narrative [facility]FT - 08/11/2020 1:28 PM AGRICULTURAL SCIENCE PROFESSOR Verified by Praful Huff on 2019. Patient Reported LAB - BLOOD ORDERABLES Performing Organization Address City/State/ZIP Code Phon e Number [facility] LABDE SCAN ALT (08/08/2020 11:34 AM AGRICULTURAL SCIENCE PROFESSOR) P athologist Signature ALT (External) 8 4 - 50 U/L LABDE SCAN Specimen (Source) Anatomical Collection Method Collection Time Re ceived Time Location / / Volume Laterality Blood specimen 08/08/2020 11:34 (specimen) AM AGRICULTURAL SCIENCE PROFESSOR Narrative [facility] PFT - 08/11/2020 1:28 PM AGRICULTURAL SCIENCE PROFESSOR Verified by Praful Huff on 2019. Patient Reported LAB - BLOOD ORDERABLES Performing Organization Address City/State/ZIP Code Phon e Number [facility] LABDE SCAN (ABNORMAL) Basic metabolic panel (08/08/2020 11:34 AM AGRICULTURAL SCIENCE PROFESSOR) P athologist Signature Glucose 119 (H) 60 [...] Laterality Blood specimen 08/08/2020 11:34 (specimen) AM AGRICULTURAL SCIENCE PROFESSOR Narrative [facility] PFT - 08/11/2020 1:28 PM AGRICULTURAL SCIENCE PROFESSOR Verified by Praful Huff on 2019. Patient Reported LAB - BLOOD ORDERABLES Performing Organization Address City/State/ZIP Code Phon e Number BREEZE PFT LABDE SCAN documented in this encounter Visit Diagnoses Not on filedocumented in this encounter Care Teams Belt Measurer Relationship Specialty Start Date End Date Momo Forbes PCP - General Family Practice 01/02/[address] [address] Joseph Quintana, Assigned Nephrology 03/29/21 MD Provider [address] [place] [address] documented as of this encounter
--- OUTSIDE RECORDS SUMMARY | 2022-04-07 11:03 | XMS_ITS | Encounter Summary ---
:1950 Author Organization [place] Address [facility] [place] [address] Care Team Providers Name Role Phone Momo Forbes Primary Care Provider Joseph Quintana MD Unavailable Reason for Visit Reason Onset Date Comments Transplant 01/21/2022 Hyperglycemia, eleva moni [facility] Encounter Details Date Type Department Care Team Description 01/21/2022 Telephone [facility] Gretta Peacock RN Trans plant Transplant Clinic (Hyperglycemia, elevated [address] [facility] [place] [address] Social History Tobacco Use Types [...] 12:07 PM CDT ISSUE: trend up in [facility], hyperglycemia OUTCOME: phone call attempted X3. Will send letter via mail. Gretta Peacock RN [employer] Contractor [phone] documented in this encounter Plan of Treatment Not on filedocumented as of this encounter Visit Diagnoses Not on filedocumented in this encounter Care Teams Outsole Compressor Relationship Specialty Start Date End Date Momo Forbes PCP - General Family Practice 01/02/14 [facility] [address] [place] [address] Joseph Quintana, Assigned Nephrology 03/29/21 MD Provider [address] [place] [address] [address] [place] [address] documented as of this encounter
--- OUTSIDE RECORDS SUMMARY | 2022-04-07 11:03 | XMS_ITS | Encounter Summary ---
:1950 Author Organization [place] Address [facility] [place] [address] Care Team Providers Name Role Phone Momo Forbes Primary Care Provider Joseph Quintana MD Unavailable Encounter Details Date Type Department Care Team Description 01/07/2021 External Order [facility] Outside, Provider Results Transplant Clinic [address] [place] [phone] Social History Tobacco Use Types Packs/Day [...] on filedocumented in this encounter Care Teams Electrical Laboratory Technician Relationship Specialty Start Date End Date Momo Forbes PCP - General Family Practice 01/02/14 [facility] [address] [place] [address] Joseph Quintana, Assigned Nephrology 03/29/21 MD Provider [address] [place] [address] [address] [place] [address] documented as of this encounter
--- OUTSIDE RECORDS SUMMARY | 2022-04-07 11:03 | XMS_ITS | Encounter Summary ---
:1950 Author Organization [place] Address [facility] [place] [address] Care Team Providers Name Role Phone Momo Forbes Primary Care Provider Joseph Quintana MD Unavailable Encounter Details Date Type Department Care Team Description 04/30/2021 External Order [facility] Outside, Provide r Results Molecular Diagnostic s [address] [place] [address] Social History Tobacco Use Types Packs/Day Years [...] Platelets & Differential (04/30/2021 11:20 AM CDT) [facility] gist Method Time Signature WBC Count [...] on filedocumented in this encounter Care Teams Scallop Binder Relationship Specialty Start Date End Date Momo Forbes PCP - General Family Practice 01/02/14 [facility] [address] [place], [place] [id number] Joseph Quintana, Assigned Nephrology 03/29/21 MD Provider 717 [facility] 353 [facility] [address] [place] [address] documented as of this encounter
--- OUTSIDE RECORDS SUMMARY | 2022-04-07 11:03 | XMS_ITS | Encounter Summary ---
:1950 Author Organization [place] Address [facility] [place] [address] Care Team Providers Name Role Phone Momo Forbes Primary Care Provider Joseph Quintana MD Unavailable Reason for Visit Reason Onset Date Comments Transplant 11/24/2021 Encounter Details Date Type Department Care Team Description 11/24/2021 Telephone [facility] Transplant Obdulia Peacock, german professor Clinic [address] [place] [phone] Social History Tobacco Use Types Packs/Day [...] had labs drawn ~one week ago at [facility], however results have not beenfaxed to [facility]. PLAN: call lab to have results faxed OUTCOME: New labs orders sent. Most recent bmp and cbc requested from october 2021. Tac and UPC due. Left detailed message with instructions to obtain tacrolimus trough level and UPC at earliest convenience. Asked for CB to confirm understanding. Gretta Peacock german professorMainframe Software Developer [phone] Telephone Encounter - Azael Rodriguez - 11/24/2021 3:32 PM CDT Patient called to touch base with the RNCC regarding some questions. documented in this encounter Plan of Treatment Not on filedocumented as of this encounter Visit Diagnoses Not on filedocumented in this encounter Care Teams Manager Work Relationship Specialty Start Date End Date Momo Forbes PCP - General Family Practice 01/02/14 [facility] [address] [place] [address] Joseph Quintana, Assigned Nephrology 03/29/21 MD Provider [address] [place] [address] [address] [place], [place] [address] documented as of this encounter
--- OUTSIDE RECORDS SUMMARY | 2022-04-07 11:03 | XMS_ITS | Encounter Summary ---
:1950 Author Organization [place] Address [address] [place] [address] Care Team Providers Name Role Phone Momo Forbes Primary Care Provider Joseph Quintana MD Unavailable Encounter Details Date Type Department Care Team Description 11/16/2021 External Order [facility] Outside, Provide r Results Molecular Diagnostic s [address] [place] [address] Social History Tobacco Use Types Packs/Day Years [...] LAB - BLOOD ORDERABLES Performing Organization Address [facility] Code Phon e Number BREEZE PFT NON-INTERFACED (ONBASE SCANS) (ABNORMAL) Lipid Profile (11/16/2021 7:12 PM CDT) [facility] Method Time Signature Cholesterol 98 90 - [...] LAB - BLOOD ORDERABLES Performing Organization Address City/[facility]/ZIP Code Phon e Number BREEZE PFT NON-INTERFACED (ONBASE SCANS) (ABNORMAL) CBC with Platelets & Differential (11/16/2021 4:35 PM CDT) [facility] Method Time Signature WBC Count 6.8 4.5 [...] LAB - BLOOD ORDERABLES Performing Organization Address City/[facility]/ZIP Code Phon e Number BREEZE PFT NON-INTERFACED (ONBASE SCANS) documented in this encounter Visit Diagnoses Not on filedocumented in this encounter Care Teams Vice President Of Advertising Relationship Specialty Start Date End Date Momo Forbes PCP - General Family Practice 01/02/14 [facility] [address] [place] [address] Joseph Quintana, Assigned Nephrology 03/29/21 MD Provider 717 [facility] 353 [facility] [address] [place], [place] [address] documented as of this encounter
--- OUTSIDE RECORDS SUMMARY | 2022-04-07 11:03 | XMS_ITS | Encounter Summary ---
:1950 Author Organization [place] Address [facility] [place] [address] Care Team Providers Name Role Phone Momo Forbes A Primary Care Provider Reason for Visit Reason Onset Date Comments Transplant 02/03/2021 spoke w pt and donna vallejoed annual neph appt on 03/05/21 Encounter Details Date Type Department Care Team Description 02/03/2021 Telephone [facility] Barbie Ugaldelanlynda (spoke w pt Transplant Clinic BOGDAN Nam and confirmed annual 909 [facility] neph appt on 03/05/21) [place] [address] Social History Tobacco Use Types [...] on filedocumented in this encounter Care Teams Butter Liquefier Relationship Specialty Start Date End Date Momo Forbes PCP - General Family Practice 01/02/14 [facility] [address] [place] [address] documented as of this encounter
--- OUTSIDE RECORDS SUMMARY | 2022-04-07 11:03 | XMS_ITS | Encounter Summary ---
:1950 Author Organization [place] Address [address] [place] [address] Care Team Providers Name Role Phone Momo Forbes Primary Care Provider Joseph Quintana MD Unavailable Reason for Visit Reason Onset Date Comments Transplant 09/22/2021 Encounter Details Date Type Department Care Team Description 09/22/2021 Telephone [facility] BOGDAN Nam [address] [place] [phone] Social History Tobacco Use Types Packs/Day [...] Barbie Ugalde RN - 09/22/2021 2:16 PM TAILOR FITTER Post discharge from [facility] 09/20/21; to rehab/TCU due to wound on stump; can't wear prosthetic until healed. UTI on Cephelaxin 500 mg TID. Katharine TCU Unit Phone [facility] [phone] Phone RN mgr Baker [phone] Discussed Prograf dose was 1.5 mg at hospital. Should be 1 mg AM/0.5 mg PM. Repeat level with BMP [facility] 09/24/21. Verbal orders taken by admissions. Barbie Crisostomo, RN, BSN Solid Organ Transplant, Post Kidney and Pancreas Transplant Director Of Retail Analytics [phone] OR FITTER Telephone Encounter - Azael Rordiguez - 09/22/2021 12:09 PM CST Katharine under the new name [facility] TCU has questions regarding medicationsand lab. OR FITTER documented in this encounter Plan of Treatment Not on filedocumented as of this encounter Visit Diagnoses Not on filedocumented in this encounter Care Teams Engineering Supervisor Relationship Specialty Start Date End Date Momo Forbes PCP - General Family Practice 01/02/14 [facility] [address] [place] [address] Joseph Quintana, Assigned Nephrology 03/29/21 MD Provider [address] [place] [address] [address] [place] [address] documented as of this encounter
--- OUTSIDE RECORDS SUMMARY | 2022-04-07 11:03 | XMS_ITS | Encounter Summary ---
:1950 Author Organization [place] Address [facility] [place] [address] Care Team Providers Name Role Phone Forbes, Momo He Primary Care Provider Encounter Details Date Type Department Care Team Description 10/23/2020 Telephone [facility] Barbie Ugalde Transplant Clinic BOGDAN Nam [address] [place], [place] [phone] Social History Tobacco Use [...] Barbie Ugalde RN - 10/23/2020 4:27 PM AMMUNITION ASSEMBLY I LABORER Returned call and left second voicemail message. Patient mentioned in previous phone call he was interested in donating his body upon passing to [facility] for science. Please sent to following website for more information: [email or web address] NITION ASSEMBLY I LABORER Telephone Encounter - Gladis Sosa RN - 10/23/2020 3:21 PM CST Patient Call: Voicemail Date/Time: 10/23/20 139pm Reason for call: Patient left a message requesting a call back NITION ASSEMBLY I LABORER documented in this encounter Plan of Treatment Not on filedocumented as of this encounter Visit Diagnoses Not on filedocumented in this encounter Care Teams Marine Diesel Technician Relationship Specialty Start Date End Date Momo Forbes PCP - General Family Practice 01/02/14 [facility] [address] [place] [address] documented as of this encounter
--- OUTSIDE RECORDS SUMMARY | 2022-04-07 11:03 | XMS_ITS | Encounter Summary ---
:1950 Author Organization [place] Address [facility] [place] [address] Care Team Providers Name Role Phone Momo Forbes Primary Care Provider Joseph Quintana MD Unavailable Reason for Visit Reason Onset Date Comments Medication Refill Refill Request 08/20/2021 Encounter Details Date Type Department Care Team Description 08/20/2021 Refill [facility] Joseph Quintana on Refill; Nephrology Clinic MD Herminio Refill Request [address] [facility] 353 [facility] [address] [place], [place] [phone] [phone] Social History Tobacco Use Types Packs/Day Years [...] transplant documented in this encounter Care Teams Process Control Manager Relationship Specialty Start Date End Date Momo Forbes PCP - General Family Practice 01/02/14 [facility] [address] [place] [address] Joseph Quintana, Assigned Nephrology 03/29/21 MD Provider [address] [place] [address] [address] [place] [address] documented as of this encounter
--- OUTSIDE RECORDS SUMMARY | 2022-04-07 11:03 | XMS_ITS | Encounter Summary ---
:1950 Author Organization [place] Address [address] [place] [address]. [place] [address] Care Team Providers Name Role Phone Momo Forbes A Primary Care Provider Reason for Visit Reason Onset Date Comments Transplant Immunosuppression Management 08/11/2020 Encounter Details Date Type Department Care Team Description 08/11/2020 [facility] Barbie Ugalde [facility] nsplant Transplant Clinic BOGDAN Nam Immunosuppression [address] [place] [address] [place] [address] Social History Tobacco Use Types [...] Barbie Ugalde RN - 08/11/2020 4:16 PM MAINTENANCE PORTER ISSUE: Tacrolimus IR level 11.7 on 08/08/20, [...] Organ Transplant, Post Kidney and Pancreas Transplant Accounting Generalist [phone] OUTCOME: Spoke with patient, they confirm accurate trough level and current dose 2 mg BID. Patient confirmed dose change to 1.5 mg BID and to repeat labs in 1 weeks. Orders sent to preferred pharmacy for dose change and lab for repeat labs. Patient voiced understanding of plan. 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
--- OUTSIDE RECORDS SUMMARY | 2022-04-07 11:03 | XMS_ITS | Encounter Summary ---
:1950 Author Organization [place] Address [facility] [place] [address] Care Team Providers Name Role Phone Momo Forbes A Primary Care Provider Reason for Visit Reason Onset Date Comments Transplant Immunosuppression Management 09/08/2020 Encounter Details Date Type Department Care Team Description 09/08/2020 Telephone [facility] Tram, Transplant Transplant Clinic Barbie Nam, Immunosuppression [address] [place] [address] [place] [address] Social History Tobacco Use Types [...] Barbie Ugalde RN - 09/09/2020 3:06 PM STUDENT TRUCK DRIVER Second call placed to patient and voicemail message left. ENT TRUCK DRIVER Telephone Encounter - Barbie Ugalde RN - 09/08/2020 10:31 AM STUDENT TRUCK DRIVER Images from the original note were not included. Message Received: 3 days ago Message Contents Beny Staton, [facility] Barbie Ugalde, BOGDAN ?? Latrell has not filled immunos since 07/21. ??His tacro dose changed and he has not filled the 0.5mg in over a year. ??He has not returned our calls. ?? Beny Staton [facility] Specialty Pharmacist [phone] OUTCOME: Tacrolimus dose was decreased from 2mg [...] he is currently taking and need labs. ENT TRUCK DRIVER documented in this encounter Plan of Treatment Not on filedocumented as of this encounter Visit Diagnoses Not on filedocumented in this encounter Care Teams Clutch Inspector Relationship Specialty Start Date End Date Momo Forbes PCP - General Family Practice 01/02/14 [place] [id number] documented as of this encounter
--- OUTSIDE RECORDS SUMMARY | 2022-04-07 11:04 | XMS_ITS | Encounter Summary ---
:1950 Author Organization [place] Address [address] [place] [address] Care Team Providers Name Role Phone Forbes, Ton Primary Care Provider Reason for Visit Reason Comments RECHECK Post kid tx f/u Encounter Details Date Type Department Care Team Description 10/09[facility]2019 [facility] [address] [facility] [address] [place] [address] Kidney transplanted (Primary Dx); Nephrology Clinic , Kidney/Pancreas Recipient Need for influenza vaccination; [place] HTN, kidney transplant relat ed; 909 [facility] Immunosupp ression (H); SE Skin cancer screening; [place], [place]ovit[place] sis D [address] Social History [...] Comments Blood Pressure 169/76 10/09/2019 2:35 PM EXPLOSIVE ORDNANCE DISPOSAL TECHNICIAN Pulse 67 10/09/2019 2:35 PM EXPLOSIVE ORDNANCE DISPOSAL TECHNICIAN Temperature - - Respiratory Rate - - Oxygen Saturation 95% 10/09/2019 2:35 PM EXPLOSIVE ORDNANCE DISPOSAL TECHNICIAN Inhaled Oxygen Concentration - - Weight 132.5 kg (292 lb 1.6 oz) 10/09/2019 2:35 PM EXPLOSIVE ORDNANCE DISPOSAL TECHNICIAN Height - - Body Mass Index 39.62 10/10/2017 2:25 PM EXPLOSIVE ORDNANCE DISPOSAL TECHNICIAN documented in this encounter Progress Notes Shiva [...] being entered into the official medical record. OSIVE ORDNANCE DISPOSAL TECHNICIAN documented in this encounter Nursing Notes Josseline Recinos RN - 10/09/2019 2:45 PM CST Diego Sosa Siricyndie was seen today in clinic by this engineering technical writer. Medications, lab orders, lab frequency,and necessary follow up discussed with patient. Patient was provided with a copy of the current lab letter. Patient voiced understanding and agreement of education and plan. Josseline Recinos RN OSIVE ORDNANCE DISPOSAL TECHNICIAN Jeanette Finley CMA - 10/09/2019 2:45 PM CST Chief Complaint Patient presents with ??? RECHECK Post kid tx f/u Blood pressure (!) 169/76, pulse 67, weight 132.5 kg (292 lb 1.6 oz), SpO2 95 %. Jeanette Finley CMA OSIVE ORDNANCE DISPOSAL TECHNICIAN documented in this encounter Plan of [...] deficiency documented in this encounter Care Teams Stock Supervisor Relationship Specialty Start Date End Date Momo Forbes PCP - General Family Practice 01/02/14 [facility] [address] [place] [address] documented as of this encounter
--- OUTSIDE RECORDS SUMMARY | 2022-04-07 11:04 | XMS_ITS | Encounter Summary ---
:1950 Author Organization [place] Address [facility] [place] [address] Care Team Providers Name Role Phone Momo Forbes Primary Care Provider Joseph Quintana MD Unavailable Encounter Details Date Type Department Care Team Description 05/26/2020 External Order [facility] Outside, Provider Results Transplant Clinic [address] [place] [address] Social History Tobacco Use Types Packs/Day [...] with platelets differential (05/26/2020 10:25 AM CDT) [facility] Method Time Signature WBC Count 4.49 (L) [...] on filedocumented in this encounter Care Teams Bit And Shank Department Supervisor Relationship Specialty Start Date End Date Momo Forbes PCP - General Family Practice 01/02/14 [facility] [address] [place] [address] Joseph Quintana, Assigned Nephrology 03/29/21 MD Provider 717 [facility] 353 [facility] 1932 [place], [place] [address] documented as of this encounter
--- OUTSIDE RECORDS SUMMARY | 2022-04-07 11:04 | XMS_ITS | Encounter Summary ---
:1950 Author Organization [place] Address [facility] [place] [address] Care Team Providers Name Role Phone Momo Forbes Primary Care Provider Encounter Details Date Type Department Care Team Description 10/09/[address] [facility] Transplant Mati Recinos RN Clinic [address] [place], [place] [phone] Social History Tobacco Use Types Packs/Day [...] CST Orders updated. Faxed to new lab: [facility] T [phone] F [phone] WINDING MACHINE OPERATOR documented in this encounter Plan of Treatment Not on filedocumented as of this encounter Visit Diagnoses Not on filedocumented in this encounter Care Teams Locks Tender Relationship Specialty Start Date End Date Forbes, Ton PCP - General Family Practice 01/02/14 [facility] [address] [place] [address] documented as of this encounter
--- OUTSIDE RECORDS SUMMARY | 2022-04-07 11:04 | XMS_ITS | Encounter Summary ---
:1950 Author Organization [place] Address [facility] [place] [address] Care Team Providers Name Role Phone Momo Forbes Primary Care Provider Reason for Visit Reason Onset Date Comments Refill Request 03/18/2020 Mycophenolate and Pr ograf 1mg Encounter Details Date Type Department Care Team Description 03/18/2020 Refill [facility] Joseph Quintana Refill R equest Nephrology Clinic MD Herminio (Mycophenolate and [place] [address] [place] [address] SE Prograf 1mg) 909 [facility] 353 [facility] [address] [place], [place] [phone] Social History Tobacco Use Types Packs/Day Years [...] transplant documented in this encounter Care Teams Habilitative Interventionist Relationship Specialty Start Date End Date Momo Forbes PCP - General Family Practice 01/02/14 [facility] [address] [place] [address] documented as of this encounter
--- OUTSIDE RECORDS SUMMARY | 2022-04-07 11:04 | XMS_ITS | Encounter Summary ---
:1950 Author Organization [place] Address [address] [place] [address]. [place] [address] Care Team Providers Name Role Phone Momo [...] filedocumented in this encounter Care Teams Supervisor Intelligence Analyst Relationship Specialty Start Date End Date Momo Forbes PCP - General Family Practice 01/02/14 [facility] [address] [place] [address] documented as of this encounter
--- OUTSIDE RECORDS SUMMARY | 2022-04-07 11:04 | XMS_ITS | Encounter Summary ---
:1950 Author Organization [place] Address [facility] [place] [address] Care Team Providers Name Role Phone Momo Forbes Primary Care Provider Reason for Visit Reason Onset Date Comments Critical Values 07/08/2020 Encounter Details Date Type Department Care Team Description 07/08/2020 Telephone [facility] Cristy Chen LPN C ritical [facility] [address] [place] [address] [phone] Social History Tobacco Use Types Packs/Day [...] Barbie Ugalde RN - 07/08/2020 4:10 PM DUMPMAN Call placed to Latrell regarding the critical [...] the summer and that as a transplant control manager he was not prescribing his insulin. Per Dr. Presleynotblaze from visit in 10/09/19: # Diabetes: Poorly controlled (HbA1c >9%) Last HbA1c: 13.7%. - Management as per primary care. - Recommended all blood sugars stay below 200, with fasting between 90 and 130. ?? Latrell states that he lost his blood sugar meter but he can pick one up at [facility]. He asked how often he should be [...] level. Latrell states he returns to 08/08. MAN Telephone Encounter - Cristy Chen LPN - 07/08/2020 3:39 PM CST DATE: 07/08/2020 TIME OF RECEIPT FROM LAB: 3:30 PM LAB TEST: Glucose LAB VALUE: 407 RESULTS GIVEN WITH READ-BACK TO (PROVIDER): Barbie Ugalde RN TIME LAB VALUE REPORTED TO PROVIDER: 3:39 PM MAN documented in this encounter Plan of Treatment Not on filedocumented as of this encounter Visit Diagnoses Not on filedocumented in this encounter Care Teams Cyanide Furnace Operator Relationship Specialty Start Date End Date Momo Forbes PCP - General Family Practice 01/02/14 [facility] [address] [place] [address] documented as of this encounter
--- OUTSIDE RECORDS SUMMARY | 2022-04-07 11:04 | XMS_ITS | Encounter Summary ---
:1950 Author Organization [place] Address [facility] [place] [address] Care Team Providers Name Role Phone Momo Forbes Primary Care Provider Joseph Quintana MD Unavailable Encounter Details Date Type Department Care Team Description 07/08/2020 External Order [facility] Outside, Provider Results Transplant Clinic [address] [place] [phone] Social History Tobacco Use Types Packs/Day [...] 9:23 AM R esults for this DIFFERENTIAL POLICE WORKER procedure are i n the results section. TACROLIMUS BY TANDEM Routine 07/08/2020 9:23 AM R esults for this MASS SPECTROMETRY POLICE WORKER procedure are in the results section. PROTEIN RANDOM URINE Routine 07/08/2020 9:23 AM R esults for this POLICE WORKER procedure are i n the results section. HEMOGLOBIN A1C Routine 07/08/2020 9:23 AM Results for this POLICE WORKER procedure are i n the results section. HEMOGLOBIN A1C Routine 07/08/2020 9:23 AM Results for this POLICE WORKER procedure are i n the results section. BASIC METABOLIC PANEL Routine 07/08/2020 9:23 AM Results for this POLICE WORKER procedure are i n the results section. documented in this encounter Results (ABNORMAL) Protein random urine with Creat Ratio (07/08/2020 9:23 AM POLICE WORKER) Analysis Performed At Patho logist Time Signature Protein Random 73 mg/dL LABDE SCAN Urine (External) Creatinine 65 mg/dL LABDE SCAN Urine mg/dL (External) Protein Total 1.12 (H) 0 - 0.19 LABDE SCAN Ur per Cr (External) Specimen (Source) Anatomical Collection Method Collection Time Re ceived Time Location / / Volume Laterality Urine specimen 07/08/2020 9:23 AM (specimen) POLICE WORKER Narrative [facility] - 07/11/2020 11:13 AM POLICE WORKER Verified by Praful Huff on 2019. Patient Reported LAB - URINE ORDERABLES Performing Organization Address City/State/ZIP Code Phon e Number [facility] LABDE SCAN (ABNORMAL) Hemoglobin A1c (07/08/2020 9:23 AM POLICE WORKER) Analysis Performed At Patho logist Time Signature Hemoglobin A1C 12.3 (H) 0 - 5.6 % LABDE SCAN (External) Specimen (Source) Anatomical Collection Method Collection Time Re ceived Time Location / / Volume Laterality Blood specimen 07/08/2020 9:23 AM (specimen) POLICE WORKER Narrative [facility] - 07/11/2020 11:13 AM POLICE WORKER Verified by Praful Huff on 2019. Patient Reported LAB - BLOOD ORDERABLES Performing Organization Address City/State/ZIP Code Phon e Number [facility] LABDE SCAN Tacrolimus level (07/08/2020 9:23 AM POLICE WORKER) P athologist Signature Tacrolimus(FK- 2.2 See scanned LABDE SCAN 506) report ng/mL (External) Specimen (Source) Anatomical Collection Method Collection Time Re ceived Time Location / / Volume Laterality Blood specimen 07/08/2020 9:23 AM (specimen) POLICE WORKER Narrative [facility] - 07/11/2020 11:13 AM POLICE WORKER Verified by Praful Huff on 2019. Patient Reported LAB - BLOOD ORDERABLES Performing Organization Address City/State/ZIP Code Phon e Number [facility] LABDE SCAN (ABNORMAL) Hemoglobin A1c (07/08/2020 9:23 AM POLICE WORKER) Analysis Performed At [facility] logist Time Signature Hemoglobin A1C 12.3 (H) 0 - 5.6 % LABDE SCAN (External) Specimen (Source) Anatomical Collection Method Collection Time Re ceived Time Location / / Volume Laterality Blood specimen 07/08/2020 9:23 AM (specimen) POLICE WORKER Narrative [facility] - 07/09/2020 11:03 AM POLICE WORKER Verified by Andrade Barajas on 07/09/2020. Patient Reported LAB - BLOOD ORDERABLES Performing Organization Address [facility] Phon e Number [facility] LABDE SCAN (ABNORMAL) Basic metabolic panel (07/08/2020 9:23 AM POLICE WORKER) Analysis Performed At [facility] logist Time Signature Calcium 10.1 8.4 - [...] Laterality Blood specimen 07/08/2020 9:23 AM (specimen) POLICE WORKER Narrative [facility] - 07/09/2020 11:02 AM POLICE WORKER Verified by Andrade Barajas on 07/09/2020. Patient Reported LAB - BLOOD ORDERABLES Performing Organization Address City/[facility]/ZIP Code Phon e Number [facility] LABDE SCAN (ABNORMAL) CBC with platelets differential (07/08/2020 9:23 AM POLICE WORKER) [facility] gist Method Time Signature WBC Count [...] Laterality Blood specimen 07/08/2020 9:23 AM (specimen) POLICE WORKER Narrative [facility] - 07/09/2020 10:52 AM POLICE WORKER Verified by Praful Huff on 2019. Patient Reported LAB - BLOOD ORDERABLES Performing Organization Address City/State/ZIP Code Phon e Number [facility] LABDE SCAN documented in this encounter Visit Diagnoses Not on filedocumented in this encounter Care Teams Motor Grader Rough Grade Relationship Specialty Start Date End Date Momo Forbes PCP - General Family Practice 01/02/14 [facility] [address] [place] [address] Joseph Quintana, Assigned Nephrology 03/29/21 MD Provider [address] [place] [address] [address] [place], [place] [address] documented as of this encounter
--- OUTSIDE RECORDS SUMMARY | 2022-04-07 11:04 | XMS_ITS | Encounter Summary ---
:1950 Author Organization [place] Address [facility] [place] [address] Care Team Providers Name Role Phone Momo Forbes Primary Care Provider Joseph Quintana MD Unavailable Encounter Details Date Type Department Care Team Description 05/26/2020 External Order [facility] Outside, Provider Results Transplant Clinic [address] [place] [phone] Social History Tobacco Use Types Packs/Day [...] filedocumented in this encounter Care Teams Manager Of Production Relationship Specialty Start Date End Date Momo Forbes PCP - General Family Practice 01/02/14 [facility] [address] [place] [address] Joseph Quintana, Assigned Nephrology 03/29/21 MD Provider 7 [facility] [address] [facility] [address] [place] [address] documented as of this encounter
--- OUTSIDE RECORDS SUMMARY | 2022-04-07 11:04 | XMS_ITS | Encounter Summary ---
:1950 Author Organization [place] Address [facility]0 [facility] [place] [address] Care Team Providers Name Role Phone Momo Forbes A Primary Care Provider Reason for Visit Reason Comments Clinic Care Coordination - Follow-up Encounter Details Date Type Department Care Team Description 10/25/2019 Care Coordination [facility] Sejal Rodriguez Care Nephrology Clinic BOGDAN Llan[place] Coordination - [place] [phone] Follow-up 9 [facility] (Work) [place] [phone] Social History Tobacco Use Types [...] patient to call back (follow up BP). Romi Rodriguez RN HIC READER Romi Rodriguez RN - 10/25/2019 10:15 AM [...] further questions or concerns. Romi Rodriguez, BOGDAN HIC READER documented in this encounter Plan of Treatment Not on filedocumented as of this encounter Visit Diagnoses Not on filedocumented in this encounter Care Teams Company Marker Relationship Specialty Start Date End Date Momo Forbes PCP - General Family Practice 01/02/14 [facility] [address] [place] [address] documented as of this encounter
--- OUTSIDE RECORDS SUMMARY | 2022-04-07 11:04 | XMS_ITS | Encounter Summary ---
:1950 Author Organization [place] Address [facility]0 [facility] [place] [address] Care Team Providers Name Role Phone Momo Forbse Primary Care Provider Joseph Quintana MD Unavailable Encounter Details Date Type Department Care Team Description 07/08/2020 External Order [facility] Outside, Provider Results Transplant Clinic [address] [place] [phone] Social History Tobacco Use Types Packs/Day [...] 9:23 AM Results f or this RESULTS TRIPLE VALVE MECHANIC procedure are i n the results section. documented in this encounter Results External Lab Results (07/08/2020 9:23 AM TRIPLE VALVE MECHANIC) Analysis Performed At Patho logist Time Signature Scan Lab View Image LABDE SCAN Results (External) Comment: HLA Antibody Screen, Class I an d Class II Specimen (Source) Anatomical Collection Method Collection Time Re ceived Time Location / / Volume Laterality 07/08/2020 9:23 AM TRIPLE VALVE MECHANIC Narrative [facility] - 07/16/2020 2:42 PM TRIPLE VALVE MECHANIC Verified by Ruperto Pepper on 07/15/20 20. Patient Reported LABORATORY Performing Organization Address City/State/ZIP Code Phon e Number [facility] LABDE SCAN documented in this encounter Visit Diagnoses Not on filedocumented in this encounter Care Teams Malt House Operator Relationship Specialty Start Date End Date Momo Forbes PCP - General Family Practice 01/02/14 [facility] [address] [place] [address] Joseph Quintana, Assigned Nephrology 03/29/21 MD Provider [address] [place] [address] [address] [place], [place] [address] documented as of this encounter
--- OUTSIDE RECORDS SUMMARY | 2022-04-07 11:04 | XMS_ITS | Encounter Summary ---
:1950 Author Organization [place] Address [facility] [place] [address] Care Team Providers Name Role Phone Momo Forbes A Primary Care Provider Reason for Visit Reason Onset Date Comments Kidney Transplant 07/12/2019 Encounter Details Date Type Department Care Team Description 07/12/2019 Telephone [facility] Estefania Nguyen Transplant Transplant Clinic Amanda Fletcher RN [address] [place] [phone] Social History Tobacco Use Types [...] left with instruction listed below. Order placed IMEDIA EDITOR Telephone Encounter - Amanda Nguyen RN - 07/12/2019 12:23 PM MULTIMEDIA EDITOR Clinic appt 07/17 at 4:45 Plan: Called patient to remind him of appt date/time. Asked that he complete labs prior to appt. FINAL CANOE INSPECTOR task: Please send one time lab order to complete all tx labs within the next week. IMEDIA EDITOR documented in this encounter Plan of Treatment Not on filedocumented as of this encounter Visit Diagnoses Not on filedocumented in this encounter Care Teams Parachute/Combatant Diver Officer Relationship Specialty Start Date End Date Momo Forbes PCP - General Family Practice 01/02/14 [facility] [address] [place] [address] documented as of this encounter
--- OUTSIDE RECORDS SUMMARY | 2022-04-07 11:04 | XMS_ITS | Encounter Summary ---
:1950 Author Organization [place] Address [address] [place] [address]. [place] [address] Care Team Providers Name Role Phone Momo Forbes Primary Care Provider Encounter Details Date Type Department Care Team Description 09/26/2019 Medical Correspondence [facility] Scan, BLOOD GLUCOSE LOG Health Info Mgmt Non-Provider Srvcs [address] [place] [phone] Social History Tobacco Use Types Packs/Day [...] on filedocumented in this encounter Care Teams Mechanical Project Engineer Relationship Specialty Start Date End Date Momo Forbes PCP - General Family Practice 01/02/14 [facility] [address] [place] [address] documented as of this encounter
--- OUTSIDE RECORDS SUMMARY | 2022-04-07 11:04 | XMS_ITS | Encounter Summary ---
:1950 Author Organization [place] Address [address] [place] [address]. [place] [address] Care Team Providers Name Role Phone Momo [...] on filedocumented in this encounter Care Teams Consumer Insight Analyst Relationship Specialty Start Date End Date Momo Forbes PCP - General Family Practice 01/02/14 [facility] [address] [place] [address] documented as of this encounter
--- OUTSIDE RECORDS SUMMARY | 2022-04-07 11:04 | XMS_ITS | Encounter Summary ---
:1950 Author Organization [place] Address [address] [place] [address]. [place] [address] Care Team Providers Name Role Phone Momo [...] on filedocumented in this encounter Care Teams Vaccinator Relationship Specialty Start Date End Date Momo Forbes PCP - General Family Practice 01/02/14 [facility] [address] [place] [address] documented as of this encounter
--- OUTSIDE RECORDS SUMMARY | 2022-04-07 11:04 | XMS_ITS | Encounter Summary ---
:1950 Author Organization [place] Address [address] [place] [address]. [place] [address] Care Team Providers Name Role Phone Momo Forbes Primary Care Provider Reason for Visit Reason Onset Date Comments Refill Request 02/04/2020 prograf, mycophenola te Encounter Details Date Type Department Care Team Description 02/04/2020 Refill [facility], Joseph Refill R equest Transplant Clinic MD Herminio (prograf, 9[address] [facility] SE 717 [facility] mycophenolate) [facility] 353 [facility] 3292 [phone] [place] [address] (Wo rk) Social History Tobacco [...] transplant documented in this encounter Care Teams Quarry Supervisor Relationship Specialty Start Date End Date Momo Forbes PCP - General Family Practice 01/02/14 [facility] [address] [place] [address] documented as of this encounter
--- OUTSIDE RECORDS SUMMARY | 2022-04-07 11:04 | XMS_ITS | Encounter Summary ---
:1950 Author Organization [place] Address [facility] [place] [address] Care Team Providers Name Role Phone Momo Forbes A Primary Care Provider Reason for Visit Reason Onset Date Comments Transplant Lab 01/29/2020 overdue labs Encounter Details Date Type Department Care Team Description 01/29/2020 Telephone [facility] Barbie Ugalde Tra nsplant Lab Transplant Clinic BOGDAN Nam (overdue labs) [address] [place] [phone] Social History Tobacco Use Types Packs/Day [...] a kit for blood work sent to [facility] as requested. Explained kits are no longer being used for drug levels but new orders could be sent to lab if needed. [facility] [phone] (Phone) [facility] has annual order on file sent September 2019 and can fax to their new [facility] location that opened 2 weeks ago. Patient seen provider in [facility] who meryl Hemoglobin A1C and BMP butnot [...] on filedocumented in this encounter Care Teams Technical Service Representative Relationship Specialty Start Date End Date Momo Forbes PCP - General Family Practice 01/02/14 [facility] [address] [place] [address] documented as of this encounter
--- OUTSIDE RECORDS SUMMARY | 2022-04-07 11:04 | XMS_ITS | Encounter Summary ---
:1950 Author Organization [place] Address [facility] [place] [address] Care Team Providers Name Role Phone Momo Forbes A Primary Care Provider Reason for Visit Reason Onset Date Comments Transplant Immunosuppression Management 07/03/2020 Late to refill Encounter Details Date Type Department Care Team Description 07/03/2020 Telephone [facility] Tram, Transplant Transplant Clinic Barbie Nam, Immunosuppression [address] [place] [address] RN Management (Late to [place], [place] refill) [phone] Social History Tobacco Use [...] Barbie Ugalde, BOGDAN - 07/03/2020 10:20 AM BARYTES GRINDER Images from the original note were not [...] copy to patient so he is aware. 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
--- OUTSIDE RECORDS SUMMARY | 2022-04-07 11:04 | XMS_ITS | Encounter Summary ---
:1950 Author Organization [place] Address [facility] [place] [address] Care Team Providers Name Role Phone Momo Forbes Primary Care Provider Reason for Visit Reason Onset Date Comments Refill Request 05/07/2020 Mycophenplate and Pr ograf Encounter Details Date Type Department Care Team Description 05/07/2020 Refill [facility] Mariano, Joseph Refill R equest Nephrology Clinic MD Herminio (Mycophenplate and [address] Prograf) [address] [place] [phone] Social History Tobacco Use Types Packs/Day Years [...] transplant documented in this encounter Care Teams Archaeologist Relationship Specialty Start Date End Date Momo Forbes PCP - General Family Practice 01/02/14 [facility] [address] [place] [address] documented as of this encounter
--- OUTSIDE RECORDS SUMMARY | 2022-04-07 11:04 | XMS_ITS | Encounter Summary ---
:1950 Author Organization [place] Address [facility] [place] [address] Care Team Providers Name Role Phone ForbesMomo prakash A Primary Care Provider Reason for Visit Reason Onset Date Comments Transplant 07/11/2020 Encounter Details Date Type Department Care Team Description 07/11/2020 Telephone [facility] BOGDAN Nam [address] [place] [phone] Social History Tobacco Use Types Packs/Day [...] Barbie Ugalde RN - 07/11/2020 2:11 PM MASTER CERTIFIED RV TECHNICIAN ISSUE: Potassium 5.2 on 07/08/20. PLAN: Assess for high dietary intake of potassium. Encouraged Diego to reduce the amount of bananas and potatoes he admitted to eating high amounts of. OUTCOME: Please have pt repeat BMP in 1 week. Orders sent ER CERTIFIED RV TECHNICIAN Telephone Encounter - Barbie Ugalde RN - 07/11/2020 1:41 PM MASTER CERTIFIED RV TECHNICIAN ISSUE: Tacrolimus IR level 2.2 on 07/08/20 [...] for repeatlabs. Patient voiced understanding of plan. 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
--- OUTSIDE RECORDS SUMMARY | 2022-04-07 11:04 | XMS_ITS | Encounter Summary ---
:1950 Author Organization [place] Address Replaced by [facility] [place] [address] Care Team Providers Name Role Phone ForbesMomo Primary Care Provider Reason for Visit Reason Comments Clinic Care Coordination - Follow-up Encounter Details Date Type Department Care Team Description 11/16/2019 Care Coordination [facility] Sejal Rodriguez Care Nephrology Clinic BOGDAN Llanos Coordination - [place] [phone] Follow-up [address] [place] [address] (Work) [place] [address] Social History Tobacco Use Types [...] on filedocumented in this encounter Care Teams Cab Starter Relationship Specialty Start Date End Date Momo Forbes PCP - General Family Practice 01/02/14 [facility] [address] [place] [address] documented as of this encounter
--- OUTSIDE RECORDS SUMMARY | 2022-04-07 11:04 | XMS_ITS | Encounter Summary ---
:1950 Author Organization [place] Address [facility] [place] [address] Care Team Providers Name Role Phone Momo Forbes A Primary Care Provider Reason for Visit Reason Onset Date Comments Transplant Lab 05/28/2020 Encounter Details Date Type Department Care Team Description 05/28/2020 Telephone [facility] Barbie Ugalde Tra nsplant Lab Transplant Clinic BOGDAN Nam [address] [place] [address] [phone] Social History Tobacco Use Types Packs/Day [...] mg/dL on 05/26/20 at 1025 collected at [facility] [phone] (Phone) CBC appears as expected Missing BMP [...] on filedocumented in this encounter Care Teams Marbleizer Relationship Specialty Start Date End Date Momo Forbes PCP - General Family Practice 01/02/14 [facility] [address] [place] [address] documented as of this encounter
--- OUTSIDE RECORDS SUMMARY | 2022-04-07 11:04 | XMS_ITS | Encounter Summary ---
:1950 Author Organization [place] Address [address] [place] [address]. [place] [address] Care Team Providers Name Role Phone Momo Forbes Primary Care Provider Encounter Details Date Type Department Care Team Description 09/25/2019 Medical Correspondence [facility] Scan, PATIENT BLOOD Health Info Mgmt Non-Provider GLUCOSE SIVAKUMAR ALLAN Srvcs [address] [place] [phone] Social History Tobacco Use Types Packs/Day [...] on filedocumented in this encounter Care Teams Band Sawing Machine Operator Relationship Specialty Start Date End Date Momo Forbes PCP - General Family Practice 01/02/14 [facility] [address] [place] [address] documented as of this encounter
--- OUTSIDE RECORDS SUMMARY | 2022-04-07 11:05 | XMS_ITS | Encounter Summary ---
:1950 Author Organization [place] Address [facility] [place] [address] Care Team Providers Name Role Phone Momo Forbes Primary Care Provider Reason for Visit Reason Onset Date Comments Refill Request 12/22/2018 prograf, mycophenola te (PT IS OUT OF MEDS) Encounter Details Date Type Department Care Team Description 12/22/2018 Refill [facility] Joseph Quintana R alenest (prograf, Transplant Clinic MD Herminio mycophenolate (PT IS OUT [address] [facility] SE 717 [facility] SE OF MEDS)) [facility] 353 [facility] 740 [phone] [place], [place] [phone] [facility] [phone] (Wo rk) Social History Tobacco Use Types [...] transplant documented in this encounter Care Teams Sow Farm Barn Technician Relationship Specialty Start Date End Date Momo Forbes PCP - General Family Practice 01/02/14 [facility] [address] [place] [address] documented as of this encounter
--- OUTSIDE RECORDS SUMMARY | 2022-04-07 11:05 | XMS_ITS | Encounter Summary ---
:1950 Author Organization [place] Address [facility] [place] [address] Care Team Providers Name Role Phone Momo Forbes Primary Care Provider Joseph Quintana MD Unavailable Encounter Details Date Type Department Care Team Description 05/16/2019 External Order [facility] Nurse, Txc Afterca re following organ transplant; Results Transplant Clinic Kidney replaced by transplan t; [address] [place] [address] Encounter for long-term curr [place] [address] Social History Tobacco Use Types [...] 05/17/2019 1:22 PM CDT Verified by Praful uHff on 2018. Patient Reported LAB - BLOOD ORDERABLES Performing Organization Address City/State/ZIP Code Phon e Kristina LOPEZ PFT LABDE SCAN (ABNORMAL) Basic metabolic panel (05/16/2019 3:43 PM CDT) Analysis Performed At [facility] Time Signature Sodium 136 135 - 145 [...] Estimated >60 >60 LABDE SCAN (if ml/min/1.7 English) 3m2 (External) GFR Estimated 56 (L) >60 [...] 3:36 PM CDT) Analysis Performed At [facility] Time Signature Protein Random 41 (H) <=14 [...] edication documented in this encounter Care Teams Water Control Station Engineer Relationship Specialty Start Date End Date Momo Forbes PCP - General Family Practice 01/02/14 [facility] [address] [place] [address] Joseph Quintana, Assigned Nephrology 03/29/21 Provider 7[address] [facility] 353 [facility] [address] [place] [address] documented as of this encounter
--- OUTSIDE RECORDS SUMMARY | 2022-04-07 11:05 | XMS_ITS | Encounter Summary ---
:1950 Author Organization [place] Address [facility]0 [facility] [place] [address] Care Team Providers Name Role Phone Momo Forbes Primary Care Provider Joseph Quintana MD Unavailable Encounter Details Date Type Department Care Team Description 05/15/2018 External Order Results [facility] Nurse, [facility] Transplant Clinic 9 [place] [address] Social History Tobacco Use Types [...] 54 (L) >60 LABDE SCAN (if ml/min/1.7 [place]an) 3m2 (External) GFR Estimated 44 (L) >60 [...] filedocumented in this encounter Care Teams Back Up Machine Operator Relationship Specialty Start Date End Date Momo Forbes PCP - General Family Practice 01/02/14 [facility] [address] [place] [address] Joseph Quintana, Assigned Nephrology 03/29/21 Provider 7 [facility] 353 [facility] [address] [place], [place] [id number] documented as of this encounter
--- OUTSIDE RECORDS SUMMARY | 2022-04-07 11:05 | XMS_ITS | Encounter Summary ---
:1950 Author Organization [place] Address [address] [facility] [address] Care Team Providers Name Role Phone Momo Forbes A Primary Care Provider Reason for Visit Reason Onset Date Comments Appointment 08/24/2018 Encounter Details Date Type Department Care Team Description 08/24/2018 Telephone [facility] Nephrology Romi Garcia, RN Appointment [facility] [phone] ([facility]) [address] [place] [address] [phone] Social History Tobacco Use Types Packs/Day [...] patient to call back. Romi Rodriguez RN ITY AIRCREWMAN Telephone Encounter - Romi Rodriguez RN - 08/24/2018 1:54 PM CST Left voicemail for patient to call back (follow up from last transplant appointment). Romi Rodriguez, RN ITY AIRCREWMAN documented in this encounter Plan of Treatment Not on filedocumented as of this encounter Visit Diagnoses Not on filedocumented in this encounter Care Teams Financial Market Dealer Relationship Specialty Start Date End Date Momo Forbes PCP - General Family Practice 01/02/[address] [address] documented as of this encounter
--- OUTSIDE RECORDS SUMMARY | 2022-04-07 11:05 | XMS_ITS | Encounter Summary ---
:1950 Author Organization [place] Address [address] [place] [address]. [place] [address] Care Team Providers Name Role Phone Momo [...] on filedocumented in this encounter Care Teams Tie Buyer Relationship Specialty Start Date End Date Momo Forbes PCP - General Family Practice 01/02/14 [facility] [address] [place] [address] documented as of this encounter
--- OUTSIDE RECORDS SUMMARY | 2022-04-07 11:05 | XMS_ITS | Encounter Summary ---
:1950 Author Organization [place] Address [facility] [place] [address] Care Team Providers Name Role Phone Forbes, Ton Primary Care Provider Reason for Visit Reason Onset Date Comments Transplant Lab 05/16/2019 Encounter Details Date Type Department Care Team Description 05/16/2019 Telephone [facility] Sudhir Fields Trans plant Lab Transplant Clinic Amanda Fletcher RN [address] [phone] [phone] Social History Tobacco Use Types Packs/Day [...] CDT Provider Call: Transplant Lab/Orders Route to PERSONAL LINES ADVISOR Post Transplant Days: 1929 When patient is less than 60 days post-transplant, route high priority Reason for Call: updated lab order faxed Liver patients reporting abnormal lab results: Route to RN and Page Document lab facility information when provider is calling about annual lab orders. Delete facility wildcards when not needed. Facility Name: [facility] Location: [place], [place] Outside Facility Callback needed? If needed documented in this encounter Plan of Treatment Not on filedocumented as of this encounter Visit Diagnoses Diagnosis Kidney replaced by transplant - Primary Aftercare following organ transplant Encounter for long-term current use of m edication documented in this encounter Care Teams Stacker Relationship Specialty Start Date End Date Momo Forbes PCP - General Family Practice 01/02/14 [facility] [address] [place] [address] documented as of this encounter
--- OUTSIDE RECORDS SUMMARY | 2022-04-07 11:05 | XMS_ITS | Encounter Summary ---
:1950 Author Organization [place] Address [address] [place] [address] Care Team Providers Name Role Phone Momo Forbes Primary Care Provider Encounter Details Date Type Department Care Team Description 05/16/2019 Orders Only [facility] Loy Morales Aft ercare following organ transplant; [facility] Kidney replaced by transplant; Laboratory [address] [facility] Encounter for long-term curr ent use of medication [address] [place] [address] [phone] (Wo rk) Social History Tobacco Use Types [...] (ABNORMAL) Tacrolimus level (05/16/2019 3:43 PM CDT) [facility] gist Method Time Signature Tacrolimus Last 05/1605/18/2019 [facility] Dose 1230AM 11:[address] [facility] Tacrolimus 4.6 (L) 5.0 - 05/18/2019 [facility] 15.0 ug/L 4:[address] [facility] Comment: Tacrolimus Reference Range Kidney Transplant Pediatric [...] Phon e Number [facility] [address] documented in this encounter Visit Diagnoses Diagnosis Aftercare following organ transplant Kidney replaced by transplant Encounter for long-term current use of m edication documented in this encounter Care Teams Company Laundry Worker Relationship Specialty Start Date End Date Momo Forbes PCP - General Family Practice 01/02/14 [facility] [address] [place] [address] documented as of this encounter
--- OUTSIDE RECORDS SUMMARY | 2022-04-07 11:05 | XMS_ITS | Encounter Summary ---
:1950 Author Organization [place] Address [facility] [place] [address] Care Team Providers Name Role Phone ForbesMomo santiago A Primary Care Provider Encounter Details Date Type Department Care Team Description 08/18/2018 Documentation Only [facility] Josseline Recinos, Transplant Clinic RN 909 [place] [address] Social History Tobacco Use Types [...] letter updated: 08/17/18 Lab orders faxed to: [facility] [phone] (Phone) Lab orders up to date in [facility]. EXAMINING TECHNICIAN documented in this encounter Plan of Treatment Not on filedocumented as of this encounter Visit Diagnoses Not on filedocumented in this encounter Care Teams Supervisory Clerk Relationship Specialty Start Date End Date Momo Forbes PCP - General Family Practice 01/02/14 [facility] [address] [place] [address] documented as of this encounter
--- OUTSIDE RECORDS SUMMARY | 2022-04-07 11:05 | XMS_ITS | Encounter Summary ---
:1950 Author Organization [place] Address [address] [place] [address] Care Team Providers Name Role Phone Momo Forbes Primary Care Provider Encounter Details Date Type Department Care Team Description 05/15/2018 Orders Only M [facility] Loy Morales MD [facility] 420 [facility] [address] [place] [address] [place] [address] [phone] Social History Tobacco Use Types Packs/Day Years [...] (ABNORMAL) Tacrolimus level (05/15/2018 2:13 PM CDT) [facility] gist Method Time Signature Tacrolimus Not [...] its performa nce characteristics determined by the [facility], ??Special Chemistry Laboratory. It has [...] LAB - BLOOD ORDERABLES Performing Organization Address [facility]/ZIP Code Phon e Number [facility] [address] Cyclosporine (05/15/2018 2:13 PM CDT) Component Value Ref Test Analysis Performed At [facility] Range Method Time Signature Cyclosporine CANCELLED BY 05/17/2018 [facility] Dose BOGDAN KOLB 1:00 PM CDT [facility] ETCHEVERRY ON [facility] 05/17/18 AT CAMPUS 1300 BY [place] Comment: CORRECTED ON 05/17 AT 1300: PRE VIOUSLY REPORTED [id number] Cyclosporine Level CANCELLED BY RN 50 - 400 05/17/2018 1:00 [facility] C[facility] ug/L PM CDT [facility] ETCHEVERRY ON [facility] 05/17/18 AT 1300 BY MO Comment: CORRECTED ON 05/17 AT 1300: PRE VIOUSLY REPORTED <25 Specimen Anatomical Collection Method Collection Time Receive d Time (Source) Location / / Volume Laterality 05/15/2018 2:13 PM 8 9:59 CDT AM CDT [place] Richey MD LAB - BLOOD ORDERABLES Performing Organization Address City/[facility]/ZIP Code Phon e Number [address] documented in this encounter Visit Diagnoses Not on filedocumented in this encounter Care Teams Agent Ticketing Gate Relationship Specialty Start Date End Date Momo Forbes PCP - General Family Practice 01/02/14 [facility] [address] [place] [address] documented as of this encounter
--- OUTSIDE RECORDS SUMMARY | 2022-04-07 11:05 | XMS_ITS | Encounter Summary ---
:1950 Author Organization [place] Address [address] [place] [address]. [place] [address] Care Team Providers Name Role Phone Momo Forbes Primary Care Provider Reason for Visit Reason Onset Date Comments Refill Request 02/28/2019 Encounter Details Date Type Department Care Team Description 02/28/2019 Refill [facility] Shiva Presley MD Refill Request Nephrology Clinic [facility] [place] [address] 5-[address] [phone] Social History Tobacco Use Types Packs/Day Years [...] disease documented in this encounter Care Teams Supervisor Enrobing Relationship Specialty Start Date End Date Momo Forbes PCP - General Family Practice 01/02/14 [facility] [address] [place], [place] [address] documented as of this encounter
--- OUTSIDE RECORDS SUMMARY | 2022-04-07 11:05 | XMS_ITS | Encounter Summary ---
:1950 Author Organization [place] Address [address] [place] [address]. [place] [address] Care Team Providers Name Role Phone Momo Forbes Primary Care Provider Encounter Details Date Type Department Care Team Description 05/17/2018 Orders Only [facility] Alana Calderon Afterc are following Transplant extension edger organ transplant [address] [place] [address] (Primary Dx) [place] [address] Social History Tobacco Use Types [...] rimary documented in this encounter Care Teams Roller Setter Relationship Specialty Start Date End Date Momo Forbes PCP - General Family Practice 01/02/14 [facility] [address] [place] [address] documented as of this encounter
--- OUTSIDE RECORDS SUMMARY | 2022-04-07 11:05 | XMS_ITS | Encounter Summary ---
:1950 Author Organization [place] Address [facility] [place] [address] Care Team Providers Name Role Phone Forbes, Ton Primary Care Provider Reason for Visit Reason Onset Date Comments Kidney Transplant 05/20/2019 Encounter Details Date Type Department Care Team Description 05/20/2019 Telephone [facility] Estefania Nguyen Transplant Transplant Clinic Amanda Fletcher RN [address] [place] [phone] Social History Tobacco Use Types Packs/Day [...] not charted as 12 hour trough. ?? Plan/CLEANER SIGNS task: ?? Please confirm timing of lab draw. If this was not a 12 hour level, please repeat labs in May and ensure 12 hour trough level with lab draw. Enter lab orders if needed Telephone Encounter - Amanda Nguyen RN - 05/20/2019 5:38 PM CDT Issue: Tac 4.6 - however this is not charted as 12 hour trough. Plan/CLEANER SIGNS task: Please confirm timing of lab draw. If this was not a 12 hour level, please repeat labs in May and ensure 12 hour trough level with lab draw. Enter lab orders if needed. documented in this encounter Plan of Treatment Not on filedocumented as of this encounter Visit Diagnoses Not on filedocumented in this encounter Care Teams Boiler Assistant Operator Relationship Specialty Start Date End Date Momo Forbes PCP - General Family Practice 01/02/14 [facility] [address] [place] [address] documented as of this encounter
--- OUTSIDE RECORDS SUMMARY | 2022-04-07 11:05 | XMS_ITS | Encounter Summary ---
:1950 Author Organization [place] Address [address] [place] [address] Care Team Providers Name Role Phone ForbesMomo prakash A Primary Care Provider Reason for Visit Reason Onset Date Comments Transplant Lab 09/06/2018 Encounter Details Date Type Department Care Team Description 09/06/2018 Telephone [facility] Transplant Adonay, Transplant Lab Clinic BOGDAN Lopes [address] [phone] Social History Tobacco Use Types Packs/Day [...] Marianne Urias RN - 09/12/2018 11:58 AM STATISTICAL TYPIST Attempted to reach pt again regarding his labs, no answer. Left message for pt to return call. ISTICAL TYPIST Telephone Encounter - Marianne Urias RN - 09/07/2018 1:30 PM STATISTICAL TYPIST Attempted to reach pt again regarding labs, no answer. Left message for pt to return call. ISTICAL TYPIST Telephone Encounter - Marianne Urias RN - 09/06/2018 12:59 PM STATISTICAL TYPIST ISSUE: Creatinine 1.69, up from pt baseline [...] Left message for pt to return call. ISTICAL TYPIST documented in this encounter Plan of Treatment Not on filedocumented as of this encounter Visit Diagnoses Not on filedocumented in this encounter Care Teams Taxonomist Relationship Specialty Start Date End Date Momo Forbes PCP - General Family Practice 01/02/14 [facility] [address] [place] [address] documented as of this encounter
--- OUTSIDE RECORDS SUMMARY | 2022-04-07 11:05 | XMS_ITS | Encounter Summary ---
:1950 Author Organization [place] Address [address] [facility] [place] [address] Care Team Providers Name Role Phone Forbes, Momo He Primary Care Provider Reason for Visit Reason Onset Date Comments Transplant 10/18/2018 post transplant lucía sampson Encounter Details Date Type Department Care Team Description 10/18/2018 Telephone [facility] Nazia Jacobson Transplant (post Transplant Clinic BOGDAN Hicksstyle advisor scheduling) [address] [place] [phone] Social History Tobacco Use Types Packs/Day [...] encounter Miscellaneous Notes Telephone Encounter - Maribel Plunektt - 10/26/2018 10:14 AM CST I attempted to contact pt again to give him the information for weight management and reached his VM. I left another detailed message with weight managements number. ACTOR OPERATOR SOLVENT PROCESS Telephone Encounter - Maribel Plunkett - 10/18/2018 9:32 AM CST I attempted to contact pt to give him the number for weight management, as they want to talk directly to the patient when scheduling initial appointment, and reached his VM. I LVM asking him to return my call. ACTOR OPERATOR SOLVENT PROCESS documented in this encounter Plan of Treatment Not on filedocumented as of this encounter Visit Diagnoses Not on filedocumented in this encounter Care Teams Sex Offender Treatment Professional Relationship Specialty Start Date End Date Momo Forbes PCP - General Family Practice 01/02/14 [facility] [address] [place] [address] documented as of this encounter
--- OUTSIDE RECORDS SUMMARY | 2022-04-07 11:05 | XMS_ITS | Encounter Summary ---
:1950 Author Organization [place] Address [address] [place] [address]. [place] [address] Care Team Providers Name Role Phone Momo Forbes Primary Care Provider Reason for Visit Reason Onset Date Comments Erroneous encounter-disregard 05/17/2018 Encounter Details Date Type Department Care Team Description 05/17/2018 Telephone [facility] Etcheverry, Erroneous Transplant Clinic BOGDAN Lopes encounter-disregard [address] [place] [phone] Social History Tobacco Use Types Packs/Day [...] filedocumented in this encounter Care Teams Director Statistical Programming Relationship Specialty Start Date End Date Momo Forbes PCP - General Family Practice 01/02/14 [facility] [address] [place] [address] documented as of this encounter
--- OUTSIDE RECORDS SUMMARY | 2022-04-07 11:05 | XMS_ITS | Encounter Summary ---
:1950 Author Organization [place] Address [address] [place] [address]. [place] [address] Care Team Providers Name Role Phone Momo Forbes Primary Care Provider Reason for Visit Reason Onset Date Comments Refill Request 01/17/2019 Encounter Details Date Type Department Care Team Description 01/17/2019 Refill [facility] Joseph Quintana MD Refill Request Transplant Clinic [address] [place] [phone] [place] [address] (Wo rk) Social History Tobacco [...] transplant documented in this encounter Care Teams Senior Reliability Engineer Relationship Specialty Start Date End Date Momo Forbes PCP - General Family Practice 01/02/14 [facility] [address] [place] [address] documented as of this encounter
--- OUTSIDE RECORDS SUMMARY | 2022-04-07 11:05 | XMS_ITS | Encounter Summary ---
:1950 Author Organization [place] Address formerly [facility] [address] Care Team Providers Name Role Phone Momo Forbes Primary Care Provider Reason for Visit Reason Onset Date Comments Transplant Pharmacy Medication Review 01/10/2019 Encounter Details Date Type Department Care Team Description 01/10/2019 Telephone [facility] Meghan Mccormack, [facility] Transplant Pharmacy [address] [place] [address] PHARMACY [phone] [address] [place], [place] [address] (Wo rk) Social History Tobacco Use Types [...] on filedocumented in this encounter Care Teams Business And Financial Counsel Relationship Specialty Start Date End Date Momo Forbes PCP - General Family Practice 01/02/14 [facility] [address] [place] [address] documented as of this encounter
--- OUTSIDE RECORDS SUMMARY | 2022-04-07 11:05 | XMS_ITS | Encounter Summary ---
:1950 Author Organization [place] Address [address] [facility] [place] [address] Care Team Providers Name Role Phone Forbes, Momo He Primary Care Provider Reason for Referral Consultation - Closed Specialty Diagnoses / Procedures Referred By Contact Refer red To Contact Diagnoses Obesity Kidney transplanted Sot Other Services [address] [place] [address] Referral ID Status Reason Start Date Expiration Date Visits Requ ested Visits Authorized [id number] Closed 10/17/2018 10/17/2019 1 1 AGE STUFFER Reason for Visit Reason Comments Transplant Encounter Details Date Type Department Care Team Description 10/17/2018 Orders Only [facility] Marcelacaty Nazia Obesity (P rimary Dx); Transplant Clinic BOGDAN Hicks Kidney transplanted [address] [place] [address] Social History Tobacco Use Types [...] transplant documented in this encounter Care Teams Fagot Heater Relationship Specialty Start Date End Date Momo Forbes PCP - General Family Practice 01/02/14 [facility] [address] [place] [address] documented as of this encounter
--- OUTSIDE RECORDS SUMMARY | 2022-04-07 11:05 | XMS_ITS | Encounter Summary ---
:1950 Author Organization [place] Address [address] [facility] [place] [address] Care Team Providers Name Role Phone Momo Forbes A Primary Care Provider Reason for Visit Reason Onset Date Comments Refill Request 10/25/2018 Encounter Details Date Type Department Care Team Description 10/25/2018 Refill [facility] Joseph Quintana MD Refill Request Transplant Clinic [address] [place] [address] [phone] [place] [address] (Wo rk) Social History Tobacco [...] Marianne Urias RN - 10/26/2018 9:04 AM RODDING ANODE WORKER ISSUE: Refill request for MMF 03/2019 appt [...] to call if further questions or concerns. ING ANODE WORKER documented in this encounter Plan of Treatment Not on filedocumented as of this encounter Visit Diagnoses Diagnosis Kidney transplanted Kidney replaced by transplant documented in this encounter Care Teams Watch Crystal Cutter Relationship Specialty Start Date End Date Momo Forbes PCP - General Family Practice 01/02/14 [facility] [address] [place] [address] documented as of this encounter
--- OUTSIDE RECORDS SUMMARY | 2022-04-07 11:05 | XMS_ITS | Encounter Summary ---
:1950 Author Organization [place] Address [address] [place] [address]. [place] [address] Care Team Providers Name Role Phone Momo [...] on filedocumented in this encounter Care Teams Nub Card Tender Relationship Specialty Start Date End Date Momo Forbes PCP - General Family Practice 01/02/14 [facility] [address] [place] [address] documented as of this encounter
--- OUTSIDE RECORDS SUMMARY | 2022-04-07 11:05 | XMS_ITS | Encounter Summary ---
:1950 Author Organization [place] Address [address] [place] [address] Care Team Providers Name Role Phone ForbesMomo prakash A Primary Care Provider Reason for Visit Reason Comments RECHECK annual Follow up Kidney [place] Encounter Details Date Type Department Care Team Description 10/17/2018 Office Visit [facility] Shiva Presley MD [facility] [place] [address] [facility] [address] [place] [address] Type 2 diabetes mellitus with other spec ified complication, with long-term current use of insulin (H) (Primary Dx); Nephrology Clinic [facility] Kidney/Pancreas Recipient Kidney replaced by transplant; [place] Aftercare following organ tr ansplant; [address] Immunosupp ression (H); SE HTN, kidney transplant relat ed; [place], [place] Severe obesi ty in adult, BMI [...] Comments Blood Pressure 162/77 10/17/2018 1:54 PM LEAD DATABASE ADMINISTRATOR Pulse 60 10/17/2018 1:54 PM LEAD DATABASE ADMINISTRATOR Temperature 36.5 ??C (97.7 ??F) 10/17/2018 1:54 PM LEAD DATABASE ADMINISTRATOR Respiratory Rate - - Oxygen Saturation 94% 10/17/2018 1:54 PM LEAD DATABASE ADMINISTRATOR Inhaled Oxygen Concentration - - Weight 133.7 kg (294 lb 12.8 oz) 10/17/2018 1:54 PM LEAD DATABASE ADMINISTRATOR Height - - Body Mass Index 39.98 10/10/2017 2:25 PM LEAD DATABASE ADMINISTRATOR documented in this encounter Progress Notes Joseph [...] then 50%0. Also offered to refer to vending machine collector. # Mineral Bone Disorder: - Secondary renal [...] PREVIOUSLY REPORTED 1999 [facility] 1.39 MPAG 80.2 DATABASE ADMINISTRATOR documented in this encounter Nursing Notes Martina [...] kg (294 lb 12.8 oz). Martina Boyle DATABASE ADMINISTRATOR documented in this encounter Plan of Treatment [...] >40 documented in this encounter Care Teams Tire Molder Relationship Specialty Start Date End Date Momo Forbes PCP - General [facility] Practice 01/02/14 [facility] [address] [place] [address] documented as of this encounter
--- OUTSIDE RECORDS SUMMARY | 2022-04-07 11:05 | XMS_ITS | Encounter Summary ---
:1950 Author Organization [place] Address [facility] [place] [address] Care Team Providers Name Role Phone Momo Forbes Primary Care Provider Joseph Quintana MD Unavailable Encounter Details Date Type Department Care Team Description 09/04/2018 External Order Results [facility] Nurse, [facility] Transplant Clinic [address] [place] [address] Social History Tobacco Use Types [...] 2:50 PM R esults for this DIFFERENTIAL FINANCIAL COMPLIANCE MANAGER procedure are i n the results section. BASIC METABOLIC PANEL Routine 09/04/2018 2:50 PM Results for this FINANCIAL COMPLIANCE MANAGER procedure are i n the results section. PROTEIN RANDOM URINE Routine 09/04/2018 2:49 PM R esults for this FINANCIAL COMPLIANCE MANAGER procedure are i n the results section. documented in this encounter Results (ABNORMAL) CBC with platelets differential (09/04/2018 2:50 PM FINANCIAL COMPLIANCE MANAGER) [facility] gist Method Time Signature WBC Count 3.8 [...] Laterality Blood specimen 09/04/2018 2:50 PM (specimen) FINANCIAL COMPLIANCE MANAGER Narrative JESSICA THIBODEAUX - 09/06/2018 9:13 AM FINANCIAL COMPLIANCE MANAGER Verified by Cassie Florian on 09/06/2018. Patient Reported LAB - BLOOD ORDERABLES Performing Organization Address City/State/ZIP Code Phon e Number [place] [facility] LABDE SCAN (ABNORMAL) Basic metabolic panel (09/04/2018 2:50 PM FINANCIAL COMPLIANCE MANAGER) Analysis Performed At Patho logist Time [...] 49 (L) >60 LABDE SCAN (if ml/min/1.7 Guamanian) 3m2 (External) GFR Estimated 41 (L) >60 LABDE SCAN (External) ml/min/1.7 3m2 Specimen (Source) Anatomical Collection Method Collection Time Re ceived Time Location / / Volume Laterality Blood specimen 09/04/2018 2:50 PM (specimen) FINANCIAL COMPLIANCE MANAGER Narrative JESSICA PFT - 09/06/2018 9:13 AM FINANCIAL COMPLIANCE MANAGER Verified by Cassie Florian on 09/06/2018. Patient Reported LAB - BLOOD ORDERABLES Performing Organization Address City/State/ZIP Code Phon e Number [place] [facility] LABDE SCAN (ABNORMAL) Protein random urine with Creat Ratio (09/04/2018 2:49 PM FINANCIAL COMPLIANCE MANAGER) P athologist Signature Protein Random 72 (H) 1 - 14 LABDE SCAN Urine mg/dL (External) Creatinine 104.0 63.0 - LABDE SCAN Urine mg/dL 166.0 (External) mg/dL Protein Total 0.7 (H) <0.2 LABDE SCAN Ur per Cr (External) Specimen (Source) Anatomical Collection Method Collection Time Re ceived Time Location / / Volume Laterality Urine specimen 09/04/2018 2:49 PM (specimen) FINANCIAL COMPLIANCE MANAGER Narrative MARLENEE PFT - 09/06/2018 9:13 AM FINANCIAL COMPLIANCE MANAGER Verified by Cassie Florian on 09/06/2018. Patient Reported LAB - URINE ORDERABLES Performing Organization Address City/State/ZIP Code Phon e Number [place] [facility] LABDE SCAN documented in this encounter Visit Diagnoses Not on filedocumented in this encounter Care Teams Offset Second Press Operator Relationship Specialty Start Date End Date Momo Forbes PCP - General Family Practice 01/02/14 [facility] [address] [place] [address] Joseph Quintana, Assigned Nephrology 03/29/21 MD Provider [address] [facility] [address] [facility] [address] [place] [address] documented as of this encounter
--- OUTSIDE RECORDS SUMMARY | 2022-04-07 11:06 | XMS_ITS | Encounter Summary ---
:1950 Author Organization [place] Address [address] [place] [address]. [place] [address] Care Team Providers Name Role Phone Momo Forbes Primary Care Provider Reason for Visit Reason Onset Date Comments Transplant 04/20/2016 refill Encounter Details Date Type Department Care Team Description 04/20/2016 Refill [facility] Joseph Quintana, Transplant (refill) Transplant Clinic [address] [place] [phone] [place] [address] (Wo rk) Social History Tobacco [...] transplant documented in this encounter Care Teams Court Worker Relationship Specialty Start Date End Date Momo Forbes PCP - General Family Practice 01/02/14 [facility] [address] [place] [address] documented as of this encounter
--- OUTSIDE RECORDS SUMMARY | 2022-04-07 11:06 | XMS_ITS | Encounter Summary ---
:1950 Author Organization [place] Address [address] [facility] [place] [address] Care Team Providers Name Role Phone Momo Forbes Primary Care Provider Encounter Details Date Type Department Care Team Description 01/19/2017 Orders Only [facility] Loy Morales Aft ercare following organ transplant; [facility] Kidney replaced by transplant; Laboratory [address] [facility] Encounter for long-term curr ent use of medication [address] [place] [address] [phone] (Wo rk) Social History Tobacco Use Types [...] Results Tacrolimus level (01/19/2017 9:25 AM CDT) [facility] gist Method Time Signature Tacrolimus Last 0[address] [facility] Dose 01/19/17 [facility] Tacrolimus 6.5 5.0 - [facility] 15.0 ug/L [facility] Comment: Tacrolimus Reference Range Kidney Transplant Pediatric [...] its perform ance characteristics determined by the [facility], ??Special Chemistry Laboratory. It has [...] Organization Address City/State/ZIP Code Phon e Number [id number] [place] [address] documented in this encounter Visit Diagnoses Diagnosis Aftercare following organ transplant Kidney replaced by transplant Encounter for long-term current use of m edication documented in this encounter Care Teams Account Receivable Associate Relationship Specialty Start Date End Date Momo Forbes PCP - General Family Practice 01/02/[address] [address] documented as of this encounter
--- OUTSIDE RECORDS SUMMARY | 2022-04-07 11:06 | XMS_ITS | Encounter Summary ---
:1950 Author Organization [place] Address [address] [place] [address] Care Team Providers Name Role Phone Momo Forbes Primary Care Provider Encounter Details Date Type Department Care Team Description 11/03/2017 Orders Only [facility] Loy Morales Kid ney replaced by [facility] MD transplant Laboratory [address] [facility] 500 [facility] [address] [place] [phone] (Wo rk) Social History Tobacco Use Types [...] Results Tacrolimus level (11/03/2017 11:30 AM CDT) [facility] Method Time Signature Tacrolimus Not Provided 11/05/2017 [facility] Last Dose 2:20 PM CDT [facility] Tacrolimus 10.7 5.0 - 11/06/2017 [facility] 15.0 ug/L 1:00 PM CDT [facility] Comment: Tacrolimus Reference Range Kidney Transplant [...] its performa nce characteristics determined by the [facility], ??Special Chemistry Laboratory. It has not [...] Organization Address City/State/ZIP Code Phon e Number [id number] [place] [address] documented in this encounter Visit Diagnoses Diagnosis Kidney replaced by transplant documented in this encounter Care Teams Toolmaker Grade Three Relationship Specialty Start Date End Date Momo Forbes PCP - General Family Practice 01/02/14 [facility] [address] [place] [address] documented as of this encounter
--- OUTSIDE RECORDS SUMMARY | 2022-04-07 11:06 | XMS_ITS | Encounter Summary ---
:1950 Author Organization [place] Address [address] [place] [address] Care Team Providers Name Role Phone ForbesMomo prakash A Primary Care Provider Reason for Visit Reason Onset Date Comments Appointment 10/05/2017 Encounter Details Date Type Department Care Team Description 10/05/2017 Telephone [facility] Shiva Presley MD Appointment Nephrology Clinic [facility] [place] [address] [phone] Social History Tobacco Use Types Packs/Day Years [...] or concernsahead of appointment. Romi Rodriguez RN L GLUE OPERATOR documented in this encounter Plan of Treatment Not on filedocumented as of this encounter Visit Diagnoses Not on filedocumented in this encounter Care Teams Pre Press Operator Relationship Specialty Start Date End Date Momo Forbes PCP - General Family Practice 01/02/14 [facility] [address] [place] [address] documented as of this encounter
--- OUTSIDE RECORDS SUMMARY | 2022-04-07 11:06 | XMS_ITS | Encounter Summary ---
:1950 Author Organization [place] Address [facility] [place] [address] Care Team Providers Name Role Phone ForbesMomo prakash A Primary Care Provider Reason for Visit Reason Onset Date Comments Transplant Immunosuppression Management 08/13/2016 Encounter Details Date Type Department Care Team Description 08/13/2016 Telephone [facility] Shiva Kahn Transp lant Transplant Clinic RN Immunosuppression 9 [facility] Management [address] [phone] [place] [address] [place], [place] [phone] Social History Tobacco Use Types Packs/Day Years [...] Patient will repeat labs in 1-2 weeks. K JACK DEALER Telephone Encounter - Shiva Kahn, RN - 08/13/2016 7:42 AM CST Tacrolimus level 3.8 reported as 18-hour level. PLAN: Verify timing of labs tac dose and time of blood draw for tac level. Repeat tac level taking care to get a good 12-hour level (11-13 hours acceptable). TASK: Please call patient with questions and instructions per plan. K JACK DEALER documented in this encounter Plan of Treatment Not on filedocumented as of this encounter Visit Diagnoses Diagnosis Kidney replaced by transplant - Primary Aftercare following organ transplant Encounter for long-term current use of m edication documented in this encounter Care Teams Work Study Student Relationship Specialty Start Date End Date Momo Forbes PCP - General Family Practice 01/02/14 [facility] [address] [place] [address] documented as of this encounter
--- OUTSIDE RECORDS SUMMARY | 2022-04-07 11:06 | XMS_ITS | Encounter Summary ---
:1950 Author Organization [place] Address [address] [place] [address]. [place] [address] Care Team Providers Name Role Phone Momo Forbes Primary Care Provider Encounter Details Date Type Department Care Team Description [facility] [place] [address] [phone] Social History Tobacco Use Types Packs/Day Years [...] disease documented in this encounter Care Teams Freight Broker Agent Relationship Specialty Start Date End Date Momo Forbes PCP - General Family Practice 01/02/14 [facility] [address] [place] [address] documented as of this encounter
--- OUTSIDE RECORDS SUMMARY | 2022-04-07 11:06 | XMS_ITS | Encounter Summary ---
:1950 Author Organization [place] Address [address] [place] [address]. [place] [address] Care Team Providers Name Role Phone Momo Forbes Primary Care Provider Reason for Visit Reason Onset Date Comments Refill Request 08/31/2017 mycophenolate Encounter Details Date Type Department Care Team Description 08/31/2017 Refill [facility] Mariano, Joseph Refill R equest Transplant Clinic MD Herminio (mycophenolate) [address] [place] [phone] [place] [address] (Wo rk) Social History Tobacco [...] transplant documented in this encounter Care Teams Wool Classer Relationship Specialty Start Date End Date Momo Forbes PCP - General Family Practice 01/02/14 [facility] [address] [place], [place] [id number] documented as of this encounter
--- OUTSIDE RECORDS SUMMARY | 2022-04-07 11:06 | XMS_ITS | Encounter Summary ---
:1950 Author Organization [place] Address [address] [place] [address]. [place] [address] Care Team Providers Name Role Phone Momo Forbes Primary Care Provider Reason for Visit Reason Onset Date Comments Refill Request 10/11/2017 Encounter Details Date Type Department Care Team Description 10/11/2017 Refill [facility] Transplant Debbie Calderon LPN Refill Request Clinic [address] [place] [address] [phone] Social History Tobacco Use Types Packs/Day [...] transplant documented in this encounter Care Teams Stone Operator Relationship Specialty Start Date End Date Momo Forbes PCP - General Family Practice 01/02/14 [facility] [address] [place] [address] documented as of this encounter
--- OUTSIDE RECORDS SUMMARY | 2022-04-07 11:06 | XMS_ITS | Encounter Summary ---
:1950 Author Organization [place] Address [address] [place] [address]. [place] [address] Care Team Providers Name Role Phone Momo Forbes Primary Care Provider Reason for Visit Reason Onset Date Comments Transplant Pharmacy Medication Review 01/19/2018 Encounter Details Date Type Department Care Team Description 01/19/2018 Telephone [facility] Beny Staton, Transplant Pharmacy [address] [facility] [place] [place] [address] [facility] [phone] [place]ACY [place], [place] [address] Social History Tobacco Use Types Packs/Day Years [...] on filedocumented in this encounter Care Teams Translator Deaf Relationship Specialty Start Date End Date Momo Forbes PCP - General Family Practice 01/02/14 [facility] [address] [place] [address] documented as of this encounter
--- OUTSIDE RECORDS SUMMARY | 2022-04-07 11:06 | XMS_ITS | Encounter Summary ---
:1950 Author Organization [place] Address [facility] [address] Care Team Providers Name Role Phone ForbesMomo prakash A Primary Care Provider Reason for Visit Reason Onset Date Comments Refill Request 09/28/2016 Encounter Details Date Type Department Care Team Description 09/28/2016 Refill [facility] Anita Joshi MD Refill Request Nephrology Clinic [address] [place] [address] [place] [address] [phone] Social History Tobacco Use Types Packs/Day Years [...] 1:51 PM CST Last Office Visit with Director Private: March 2016. Medication refilled per Nephrology Clinic protocol. Janes Jauregui RN ARIN CHINESE TEACHER documented in this encounter Plan of Treatment Not on filedocumented as of this encounter Visit Diagnoses Diagnosis Reactive depression - Primary Dysthymic disorder documented in this encounter Care Teams Briar Cutter Relationship Specialty Start Date End Date Momo Forbes PCP - General Family Practice 01/02/14 [facility] [address] [place] [address] documented as of this encounter
--- OUTSIDE RECORDS SUMMARY | 2022-04-07 11:06 | XMS_ITS | Encounter Summary ---
:1950 Author Organization [place] Address [facility] [place] [address] Care Team Providers Name Role Phone ForbesMomo prakash A Primary Care Provider Encounter Details Date Type Department Care Team Description 10/25/2016 Orders Only [facility] Thrombocytopenia (H); [address] Aftercare following organ tr ansplant; 1st Floor Kidney replaced by transplan t; [place], [place] Encounter fo r long-term current use [...] Thrombocytopenia (H) Resu lts for this PM DIRECTOR DATA procedure are i n the results section. BASIC METABOLIC Routine 10/25/2016 3:54 Aftercare following Re sults for this PANEL PM DIRECTOR DATA organ transplant procedure are in Kidney replaced by the resul ts transplant section. Encounter for long-term current use of medication CBC WITH PLATELETS Routine 10/25/2016 3:54 Aftercare following Results for this PM DIRECTOR DATA organ transplant procedure are in Kidney replaced by the [facility] ts transplant section. Encounter for long-term current use of medication PROTEIN RANDOM Routine 10/25/2016 3:52 Aftercare following Res ults for this URINE PM DIRECTOR DATA organ transplant procedure are in Kidney replaced by the [facility] ts transplant section. Encounter for long-term current use of medication CREATININE URINE Routine 10/25/2016 3:52 Thrombocytopenia (H) Results for this CALCULATION ONLY PM DIRECTOR DATA procedure a re in (LAB ONLY) the results section. documented in this encounter Results (ABNORMAL) Basic metabolic panel (10/25/2016 3:54 PM DIRECTOR DATA) [facility] gist Method Time Signature Sodium 142 133 - 144 [facility] mmol/L [facility] Potassium 4.2 3.4 - 5.3 [facility] mmol/L [facility] Chloride 108 94 - 109 [facility] mmol/L [facility] Carbon Dioxide 28 20 - 32 [facility] mmol/L [facility] Anion Gap 7 3 - 14 [facility] mmol/L [facility] Glucose 120 (H) 70 - 99 [facility] mg/dL [facility] Urea Nitrogen 19 7 - 30 [facility] mg/dL [facility] Creatinine 1.39 (H) 0.66 - [facility] 1.25 mg/dL [facility] GFR Estimate 51 (L) >60 [facility] mL/min/1.7 [place] m2 [facility] Comment: Non GFR Calc GFR Estimate If Black 62 >60 mL/min/1.7m2 U [facility] Comment: GFR Calc Calcium 9.4 8.5 - 10.1 mg/dL [facility] Specimen Anatomical Collection Method Collection Time Receive d Time (Source) Location / / Volume Laterality Blood specimen 10/25/2016 3:54 PM 017 3:55 (specimen) DIRECTOR DATA PM DIRECTOR DATA Chucho Joshi MD LAB - BLOOD ORDERABLES Performing Organization Address City/State/ZIP Code Phon e Number [address] [phone] [facility] (ABNORMAL) CBC with platelets (10/25/2016 3:54 PM DIRECTOR DATA) Analysis Performed At Patho logist Time Signature WBC 5.1 4.0 - 11.0 [facility] 10e9/L [facility] RBC Count 5.50 4.4 - 5.9 [facility] 10e12/L [facility] Hemoglobin 15.5 13.3 - [facility] 17.7 g/dL [facility] Hematocrit 46.0 40.0 - [facility] 53.0 % [facility] MCV 84 78 - 100 [facility] fl [facility] MCH 28.2 26.5 - [facility] 33.0 pg [facility] MCHC 33.7 31.5 - [facility] 36.5 g/dL [facility] RDW 14.1 10.0 - [facility] 15.0 % [facility] Platelet Count 124 (L) 150 - 450 [facility] 10e9/L [facility] Specimen Anatomical Collection Method Collection Time Receive d Time (Source) Location / / Volume Laterality Blood specimen 10/25/2016 3:54 PM 017 3:55 (specimen) DIRECTOR DATA PM DIRECTOR DATA Chucho Joshi MD LAB - BLOOD ORDERABLES Performing Organization Address City/[facility] [address]/[facility] [place] [address] [facility] Folate RBC (10/25/2016 3:54 PM DIRECTOR DATA) P athologist Signature HCT Within 46.0 % [facility] Past 24h [facility] Folate RBC 663 ng/mL [facility] Comment: Reference range: >=366 (Note) Performed by [employer], [address] [place] [id number] [email or web address], Geoff Reed MD, Lab. Director Specimen Anatomical Collection Method Collection Time Receive d Time (Source) Location / / Volume Laterality Blood specimen 10/25/2016 3:54 PM 017 3:55 (specimen) DIRECTOR DATA PM DIRECTOR DATA Chucho Joshi MD LAB - BLOOD ORDERABLES Performing Organization Address City/[facility] [address]/ZIP Code Phon e Number [address] [phone] [facility] Creatinine urine calculation only (10/25/2016 3:52 PM DIRECTOR DATA) P athologist Signature Creatinine 152 mg/dL [facility] Specimen Anatomical Collection Method Collection Time Receive d Time (Source) Location / / Volume Laterality 10/25/2016 3:52 PM 201 7 4:12 DIRECTOR DATA PM DIRECTOR DATA Chucho Joshi MD LAB - URINE ORDERABLES Performing Organization Address City/State/ZIP Code Phon e Number M [facility] [address] [place] [address] [facility] [address] [place] [address], [place] [phone] (ABNORMAL) Protein random urine (10/25/2016 3:52 PM DIRECTOR DATA) Analysis Performed At Patho logist Time Signature Protein Random 0.48 g/L [facility] Protein Total 0.31 (H) 0 - 0.2 [place] Urine g/gr g/g Cr [facility] Specimen Anatomical Collection Method Collection Time Receive d Time (Source) Location / / Volume Laterality Urine specimen 10/25/2016 3:52 PM 017 4:12 (specimen) DIRECTOR DATA PM DIRECTOR DATA Chucho Joshi MD LAB - URINE ORDERABLES Performing Organization Address City/State/ZIP Code Phon e Number [facility] [address] [place] [address] [facility] [address] [place] [address], [place] [phone] documented in this encounter Visit Diagnoses Diagnosis Thrombocytopenia (H) Thrombocytopenia, unspecified Aftercare following organ transplant Kidney replaced by transplant Encounter for long-term current use of m edication documented in this encounter Care Teams Sign Writer Hand Relationship Specialty Start Date End Date Momo Forbes PCP - General Family Practice 01/02/14 [facility] [address] [place] [address] documented as of this encounter
--- OUTSIDE RECORDS SUMMARY | 2022-04-07 11:06 | XMS_ITS | Encounter Summary ---
:1950 Author Organization [place] Address [address] [place] [address] Care Team Providers Name Role Phone Forbes, Momo He Primary Care Provider Reason for Visit Reason Comments RECHECK Kidney tx follow up Encounter Details Date Type Department Care Team Description 10/10/2017 Office Visit [facility] Shiva Presley Sta tus post kidney transplant (Primary Dx); Nephrology Clinic Immunosuppression (H); [facility] Type 2 diabetes mellitus wit h stage 3 chronic kidney disease, with long-term current use of insulin (H); [address] [place] [address] Benign essential hypertension; [address] Hyperlipidemia, unspecified hyperlipidemia type; [place], [place] RANJAN [address] Skin cancer screening [phone] [place] [address] (Wo rk) Social History Tobacco [...] Comments Blood Pressure 153/74 10/10/2017 2:25 PM TAR POT WORKER Pulse 55 10/10/2017 2:25 PM TAR POT WORKER Temperature 36.7 ??C (98.1 ??F) 10/10/2017 2:25 PM TAR POT WORKER Respiratory Rate - - Oxygen Saturation 98% 10/10/2017 2:25 PM TAR POT WORKER Inhaled Oxygen Concentration - - Weight 135.4 kg (298 lb 6.4 oz) 10/10/2017 2:25 PM TAR POT WORKER Height 182.9 cm (6') 10/10/2017 2:25 PM TAR POT WORKER Body Mass Index 40.47 10/10/2017 2:25 PM TAR POT WORKER documented in this encounter Progress Notes Shiva [...] is well as a referral to his mobility specialist for monitoring for any skin cancers. 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 POT WORKER documented in this encounter Nursing Notes [place] [...] Medication Reconciliation: complete MONROE ZURITA CMA . POT WORKER documented in this encounter Plan of [...] skin documented in this encounter Care Teams Document Preparer Microfilming Relationship Specialty Start Date End Date Momo Forbes PCP - General Family Practice 01/02/14 [facility] [address] [place] [address] documented as of this encounter
--- OUTSIDE RECORDS SUMMARY | 2022-04-07 11:06 | XMS_ITS | Encounter Summary ---
:1950 Author Organization [place] Address [address] [facility] [place] [address] Care Team Providers Name Role Phone Momo Forbes Primary Care Provider Reason for Visit Reason Onset Date Comments Pre Visit Planning - Unable To Reach 10/14/2016 Encounter Details Date Type Department Care Team Description 10/14/2016 Telephone [facility] Anita Joshi MD Pre Visit Planning - Nephrology Clinic [address] [place] [address] [place] ble To Reach [address] [address] [phone] Social History Tobacco Use Types Packs/Day Years [...] is office from Clinic 3B at the [facility]. We are calling to remind you of your upcoming Nephrology appointment on 10/25/16 at 440pm. Please arrive about 1 hours prior to your appointment time for labs. Also, please bring an updated medication list or your labeled medication bottles with you to your appointment. If you have any questions or would like to cancel or reschedule your appointment, please call us at [phone]. You are welcome to have your labs done up to a week before your appointment at any [facility] or [facility] facility. If you have your labs completed before your appointment, please still come 30 minutes early for check-in MONROE ZURITA CMA OMATIC COURIER documented in this encounter Plan of Treatment Not on filedocumented as of this encounter Visit Diagnoses Not on filedocumented in this encounter Care Teams Under Ground Miner Relationship Specialty Start Date End Date Momo Forbes PCP - General Family Practice 01/02/14 [facility] [address] [place] [address] documented as of this encounter
--- OUTSIDE RECORDS SUMMARY | 2022-04-07 11:06 | XMS_ITS | Encounter Summary ---
:1950 Author Organization [place] Address [facility] [place] [address] Care Team Providers Name Role Phone Momo Forbes Primary Care Provider Joseph Quintana MD Unavailable Encounter Details Date Type Department Care Team Description 05/03/2016 External Order Results [facility] Nurse, [facility] Transplant Clinic [address] [place] [address] Social History Tobacco Use Types [...] in this encounter Care Teams Child Care Attendant School Relationship Specialty Start Date End Date Momo Forbes PCP - General Family Practice 01/02/14 [facility] [address] [place] [address] Joseph Quintana, Assigned Nephrology 03/29/21 MD Provider [address] [place], [place] [address] documented as of this encounter
--- OUTSIDE RECORDS SUMMARY | 2022-04-07 11:06 | XMS_ITS | Encounter Summary ---
:1950 Author Organization [place] Address [address] [facility] [place] [address] Care Team Providers Name Role Phone Momo Forbes A Primary Care Provider Reason for Visit Reason Onset Date Comments Refill Request 06/28/2017 mycophenolate Encounter Details Date Type Department Care Team Description 06/28/2017 [facility]ill [facility] Mariano, Joseph Refill R equest Transplant Clinic MD Herminio (mycophenolate) [address] [place] [phone] [place] [address] (Wo rk) Social History Tobacco [...] Fill Date: 05/31/17 Quantity: 180 Janelle Flowers [facility] [phone] MATION TESTER documented in this encounter Plan of Treatment Not on filedocumented as of this encounter Visit Diagnoses Diagnosis Kidney transplanted - Primary Kidney replaced by transplant documented in this encounter Care Teams Railroad Car Repair Supervisor Relationship Specialty Start Date End Date Momo Forbes PCP - General Family Practice 01/02/[address] [address] documented as of this encounter
--- OUTSIDE RECORDS SUMMARY | 2022-04-07 11:06 | XMS_ITS | Encounter Summary ---
:1950 Author Organization [place] Address [address] [place] [address] Care Team Providers Name Role Phone Momo Forbes Primary Care Provider Reason for Visit Reason Onset Date Comments Transplant 05/10/2016 refill Encounter Details Date Type Department Care Team Description 05/10/2016 Refill The Transplant Chucho Perez MD Transplant (refill) 2nd Floor, Clinic [address] [place] [address] [facility] [place] [address] Social History Tobacco Use Types [...] send new rx Thank you Janelle Flowers [facility] [phone] documented in this encounter Plan of Treatment Not on filedocumented as of this encounter Visit Diagnoses Diagnosis Kidney transplanted - Primary Kidney replaced by transplant documented in this encounter Care Teams Plastics Patternmaker Relationship Specialty Start Date End Date Momo Forbes PCP - General Family Practice 01/02/14 [place] [id number] documented as of this encounter
--- OUTSIDE RECORDS SUMMARY | 2022-04-07 11:06 | XMS_ITS | Encounter Summary ---
:1950 Author Organization [place] Address [address] [place] [address]. [place] [address] Care Team Providers Name Role Phone Momo Forbes Primary Care Provider Reason for Visit Reason Onset Date Comments Transplant 08/31/2017 Encounter Details Date Type Department Care Team Description 08/31/[address] [facility] Transplant Amanda Garduno Transplant Clinic M, RN [address] [place] [phone] Social History Tobacco Use Types Packs/Day [...] filedocumented in this encounter Care Teams Industrial Ecologist Relationship Specialty Start Date End Date Momo Forbes PCP - General Family Practice 01/02/14 [facility] [address] [place] [address] documented as of this encounter
--- OUTSIDE RECORDS SUMMARY | 2022-04-07 11:06 | XMS_ITS | Encounter Summary ---
:1950 Author Organization [place] Address [address] [place] [address]. [place] [address] Care Team Providers Name Role Phone Momo Forbes Primary Care Provider Reason for Visit Reason Onset Date Comments Transplant 12/02/2016 refill Encounter Details Date Type Department Care Team Description 12/02/[address] [facility] Anita Joshi MD Transplant (refill) Nephrology Clinic [address] [place] [phone] [place] [address] (Wo rk) [address] [phone] Social History Tobacco Use Types Packs/Day Years [...] transplant documented in this encounter Care Teams Business Insight And Analytics Manager Relationship Specialty Start Date End Date Momo Forbes PCP - General Family Practice 01/02/14 [facility] [address] [place] [address] documented as of this encounter
--- OUTSIDE RECORDS SUMMARY | 2022-04-07 11:06 | XMS_ITS | Encounter Summary ---
:1950 Author Organization [place] Address [address] [place] [address] Care Team Providers Name Role Phone Momo Forbes Primary Care Provider Encounter Details Date Type Department Care Team Description 05/31/2017 Orders Only [facility] Loy Morales Kid ney replaced by [facility] MD transplant Laboratory [address] [facility] 500 [facility] [address] [place] [phone] (Wo rk) Social History Tobacco Use Types [...] (ABNORMAL) Tacrolimus level (05/30/2017 1:01 PM CDT) [facility] Method Time Signature Tacrolimus Last 05/29/17 05/31/2017 [facility] Dose 1930 1:05 PM CDT [facility] Tacrolimus 3.0 (L) 5.0 - 05/31/2017 [facility] 15.0 ug/L 7:54 PM CDT [facility] Comment: Tacrolimus Reference Range Kidney Transplant [...] its performa nce characteristics determined by the [facility], ??Special Chemistry Laboratory. It has not [...] Organization Address City/State/ZIP Code Phon e Number [facility] [address] [place], [place] [phone] [place] [address] documented in this encounter Visit Diagnoses Diagnosis Kidney replaced by transplant documented in this encounter Care Teams Turntable Man Relationship Specialty Start Date End Date Momo Forbes PCP - General Family Practice 01/02/14 [facility] [address] [place] [address] documented as of this encounter
--- OUTSIDE RECORDS SUMMARY | 2022-04-07 11:06 | XMS_ITS | Encounter Summary ---
:1950 Author Organization [place] Address [address] [place] [address]. [place] [address] Care Team Providers Name Role Phone Momo Forbes Primary Care Provider Encounter Details Date Type Department Care Team Description 03/23/2017 Orders Only [facility] [place] Kidne y replaced by Nephrology Clinic transplant (Primary [address] Dx) [address] [place] [phone] Social History Tobacco Use Types Packs/Day [...] Primary documented in this encounter Care Teams Asphalt Paver Operator Relationship Specialty Start Date End Date Momo Forbes PCP - General Family Practice 01/02/14 [facility] [address] [place] [address] documented as of this encounter
--- OUTSIDE RECORDS SUMMARY | 2022-04-07 11:06 | XMS_ITS | Encounter Summary ---
:1950 Author Organization [place] Address [address] [place] [address] Care Team Providers Name Role Phone ForbesMomo santiago A Primary Care Provider Encounter Details Date Type Department Care Team Description 05/30/2017 Hospital Encounter [facility] [place], [facility] [address] [phone] (Wo rk) Social History Tobacco Use Types [...] on filedocumented in this encounter Care Teams Power Bender Operator Relationship Specialty Start Date End Date Momo Forbes PCP - General Family Practice 01/02/14 [facility] [address] [place] [address] documented as of this encounter
--- OUTSIDE RECORDS SUMMARY | 2022-04-07 11:06 | XMS_ITS | Encounter Summary ---
:1950 Author Organization [place] Address [facility] [place] [address] Care Team Providers Name Role Phone Momo Forbes Primary Care Provider Joseph Quintana MD Unavailable Encounter Details Date Type Department Care Team Description 09/09/2017 External Order [facility] Nurse, [facility] Kidney replaced by Results Transplant Clinic transplant [address] [place] [phone] Social History Tobacco Use Types Packs/Day [...] 07/15/2017 10:48 AM Result s for this DISABILITY REPRESENTATIVE procedure are i n the results section. BASIC METABOLIC Routine 07/15/2017 10:48 AM Kidney replaced by Results for this PANEL DISABILITY REPRESENTATIVE transplant procedure are i n the results [...] Results (ABNORMAL) Hemoglobin A1c (07/15/2017 10:48 AM DISABILITY REPRESENTATIVE) Patholo gist Method Time Signature Hemoglobin A1C >14.0 (H) <=6.4 % LABDE SCAN (External) Specimen (Source) Anatomical Collection Method Collection Time Re ceived Time Location / / Volume Laterality Blood specimen 07/15/2017 10:48 (specimen) AM DISABILITY REPRESENTATIVE Narrative ZAHCERYMARIELABea PFT - 09/09/2017 9:36 PM DISABILITY REPRESENTATIVE Verified by Sharon Martinez on 8. Patient Reported LAB - BLOOD ORDERABLES Performing Organization Address City/State/ZIP Code Phon e Number JESSICA PFT LABDE SCAN (ABNORMAL) Basic metabolic panel (07/15/2017 10:48 AM DISABILITY REPRESENTATIVE) Analysis Performed At Patho logist Time Signature [...] 55 (L) >60 LABDE SCAN (if ml/min/1.7 [place]) 3m2 (External) GFR Estimated 46 (L) >60 LABDE SCAN (External) ml/min/1.7 3m2 Specimen (Source) Anatomical Collection Method Collection Time Re ceived Time Location / / Volume Laterality Blood specimen 07/15/2017 10:48 (specimen) AM DISABILITY REPRESENTATIVE Narrative [facility] PFT - 09/09/2017 9:36 PM DISABILITY REPRESENTATIVE Verified by Sharon Martinez on 8. [place] [...] Narrative [facility] PFT - 09/09/2017 9:39 PM DISABILITY REPRESENTATIVE Verified by Sharon Martinez on 8. Patient [...] Narrative [facility] PFT - 09/09/2017 9:39 PM DISABILITY REPRESENTATIVE Verified by Sharon Martinez on 8. [place] [...] 51 (L) >60 LABDE SCAN (if ml/min/1.7 [place]) 3m2 (External) GFR Estimated 42 (L) >60 LABDE SCAN (External) ml/min/1.7 3m2 Specimen (Source) Anatomical Collection Method Collection Time Re ceived Time Location / / Volume Laterality Blood specimen 05/30/2017 9:32 AM (specimen) CDT Narrative [facility] PFT - 09/09/2017 9:39 PM DISABILITY REPRESENTATIVE Verified by Sharon Martinez on 8. [place] [...] Narrative [facility]ZE PFT - 09/09/2017 9:44 PM DISABILITY REPRESENTATIVE Verified by Sharon Martinez on 8. Patient [...] Narrative [facility]REEZE PFT - 09/09/2017 9:44 PM DISABILITY REPRESENTATIVE Verified by Sharon Martinez on 8. Patient [...] Narrative [facility]ZE PFT - 09/09/2017 9:44 PM DISABILITY REPRESENTATIVE Verified by Sharon Martinez on 8. Patient [...] 55 (L) >60 LABDE SCAN (if ml/min/1.7 [place]) 3m2 (External) GFR Estimated 46 (L) >60 LABDE SCAN (External) ml/min/1.7 3m2 Specimen (Source) Anatomical Collection Method Collection Time Re ceived Time Location / / Volume Laterality Blood specimen 01/19/2017 9:30 AM (specimen) CDT Narrative JESSICA PFT - 09/09/2017 9:44 PM DISABILITY REPRESENTATIVE Verified by Sharon Martinez on 8. Patient Reported LAB - BLOOD ORDERABLES Performing Organization Address City/State/ZIP Code Phon e Number BREEZBea PFT LABDE SCAN documented in this encounter Visit Diagnoses Diagnosis Kidney replaced by transplant documented in this encounter Care Teams Cake Froster Relationship Specialty Start Date End Date Momo Forbes PCP - General Family Practice 01/02/14 [facility] [address] [place] [address] Joseph Quintana, Assigned Nephrology 03/29/21 Provider [address] [facility] [address] [facility] [address] [place] [address] documented as of this encounter
--- OUTSIDE RECORDS SUMMARY | 2022-04-07 11:06 | XMS_ITS | Encounter Summary ---
:1950 Author Organization [place] Address [facility] [place] [address] Care Team Providers Name Role Phone ForbesMomo prakash A Primary Care Provider Reason for Visit Reason Comments RECHECK Kidney follow up Encounter Details Date Type Department Care Team Description 10/25/2016 Office Visit [facility] Anita Joshi MD Renal hypertension, Nephrology Clinic [address] [place] [address] 1-4 or [place] [address] unspecified chronic [address] [place], [place] [address] (Primary Dx) [address] [phone] Social History Tobacco Use Types Packs/Day Years [...] Comments Blood Pressure 168/83 10/25/2016 4:39 PM COMPUTER INFORMATION SYSTEMS INSTRUCTOR Pulse 55 10/25/2016 4:39 PM COMPUTER INFORMATION SYSTEMS INSTRUCTOR Temperature 36.8 ??C (98.3 ??F) 10/25/2016 4:39 PM COMPUTER INFORMATION SYSTEMS INSTRUCTOR Respiratory Rate 18 10/25/2016 4:39 PM COMPUTER INFORMATION SYSTEMS INSTRUCTOR Oxygen Saturation - - Inhaled Oxygen Concentration - - Weight 138.2 kg (304 lb 9.6 oz) 10/25/2016 4:39 PM COMPUTER INFORMATION SYSTEMS INSTRUCTOR Height 182.9 cm (6') 10/25/2016 4:39 PM COMPUTER INFORMATION SYSTEMS INSTRUCTOR Body Mass Index 41.31 10/25/2016 4:39 PM COMPUTER INFORMATION SYSTEMS INSTRUCTOR documented in this encounter Progress Notes Chucho [...] (304 lb 9.6 oz). Medication Reconciliation: complete UTER INFORMATION SYSTEMS INSTRUCTOR documented in this encounter Plan of Treatment Not on filedocumented as of this encounter Visit Diagnoses Diagnosis Renal hypertension, stage 1-4 or unspeci fied chronic kidney disease - Primary documented in this encounter Care Teams Database Tester Relationship Specialty Start Date End Date Momo Forbes PCP - General Family Practice 01/02/14 [facility] [address] [place] [address] documented as of this encounter
--- OUTSIDE RECORDS SUMMARY | 2022-04-07 11:06 | XMS_ITS | Encounter Summary ---
:1950 Author Organization [place] Address [facility] [place] [address] Care Team Providers Name Role Phone Momo Forbes Primary Care Provider Joseph Quintana MD Unavailable Encounter Details Date Type Department Care Team Description 08/18/2016 External Order Results [facility] Nurse, [facility] Transplant Clinic 9 [place] [address] Social History Tobacco Use Types [...] 08/09/2016 12:21 PM Results for this RESULTS MANAGER CLINICAL INFORMATICS procedure are i n the results section. documented in this encounter Results (ABNORMAL) TXP External Lab Result (08/09/2016 12:21 PM MANAGER CLINICAL INFORMATICS) Analysis Performed At Patho logist Time Signature [...] / / Volume Laterality 08/09/2016 12:21 PM MANAGER CLINICAL INFORMATICS Narrative [facility] - 08/18/2016 1:35 PM MANAGER CLINICAL INFORMATICS Verified by Jessica Major on 016. Patient Reported LABORATORY Performing Organization Address City/State/ZIP Code Phon e Number [facility] LABDE SCAN documented in this encounter Visit Diagnoses Not on filedocumented in this encounter Care Teams Operation Manager Relationship Specialty Start Date End Date Momo Forbes PCP - General Family Practice 01/02/14 [facility] [address] [place], [place] [phone] Joseph Quintana, Assigned Nephrology 03/29/21 MD Provider [address] [place] [address] 353 [facility] [address] [place], [place] [address] documented as of this encounter
--- OUTSIDE RECORDS SUMMARY | 2022-04-07 11:06 | XMS_ITS | Encounter Summary ---
:1950 Author Organization [place] Address [address]50 [facility] [place] [address] Care Team Providers Name Role Phone Momo Forbes A Primary Care Provider Reason for Visit Reason Onset Date Comments Refill Request 10/10/2017 mycophenolae Encounter Details Date Type Department Care Team Description 10/10/2017 Refill [facility] [place] Mariano, Joseph Refill R [facility] Transplant Clinic MD Herminio (mycophenolae ) [address] [place] [phone] [place] [address] (Wo rk) Social History Tobacco [...] Notes Telephone Encounter - Janelle Flowers - 10/10/2017 8:26 AM CST Drug Name: mycophenolate 250mg Last Fill Date: 09/01/17 Quantity: 180 Janelle Flowers [facility] [phone] RATOR OPERATOR documented in this encounter Plan of Treatment Not on filedocumented as of this encounter Visit Diagnoses Diagnosis Kidney transplanted Kidney replaced by transplant documented in this encounter Care Teams Weekend Anchor Relationship Specialty Start Date End Date Momo Forbes PCP - General Family Practice 01/02/14 [facility] [address] [place] [address] documented as of this encounter
--- OUTSIDE RECORDS SUMMARY | 2022-04-07 11:06 | XMS_ITS | Encounter Summary ---
:1950 Author Organization [place] Address [address] [place] [address] Care Team Providers Name Role Phone Momo Forbes A Primary Care Provider Reason for Visit Reason Onset Date Comments Refill Request 12/19/2017 Encounter Details Date Type Department Care Team Description 12/19/2017 Refill [facility] Joseph Quintana MD Refill Request Transplant Clinic [address] [place] [address] [phone] [place] [address] (Wo rk) Social History Tobacco [...] Fill Date: 11/14/17 Quantity: 60 Janelle Flowers [facility] [phone] documented in this encounter Plan of Treatment Not on filedocumented as of this encounter Visit Diagnoses Diagnosis Kidney transplanted Kidney replaced by transplant documented in this encounter Care Teams Biofuels Operations Manager Relationship Specialty Start Date End Date Momo Forbes PCP - General Family Practice 01/02/14 [facility] [address] [place] [address] documented as of this encounter
--- OUTSIDE RECORDS SUMMARY | 2022-04-07 11:06 | XMS_ITS | Encounter Summary ---
:1950 Author Organization [place] Address [address]50 [facility] [place] [address] Care Team Providers Name Role Phone Momo Forbes Primary Care Provider Encounter Details Date Type Department Care Team Description 07/15/2017 Orders Only [facility] Loy Morales Kid ney replaced by [facility] MD transplant Laboratory 420 [facility] 500 [facility] 609 [place] [phone] (Wo rk) Social History Tobacco Use Types [...] by Results for this MASS SPECTROMETRY AM SUPERVISOR PROPERTIES transplant procedure are in the results section. documented in this encounter Results (ABNORMAL) Tacrolimus level (07/15/2017 10:48 AM SUPERVISOR PROPERTIES) [facility] Method Time Signature Tacrolimus Last 0000 07/19/2017 [facility] 07/15/17 10:48 AM [facility] Tacrolimus 4.4 (L) 5.0 - 07/19/2017 [facility] Level 15.0 ug/L 2:38 PM [facility] Comment: Tacrolimus Reference Range Kidney Transplant [...] its performa nce characteristics determined by the [facility], ??Special Chemistry Laboratory. It has [...] Blood specimen 07/15/2017 10:48 7 (specimen) AM SUPERVISOR PROPERTIES 10:47 AM SUPERVISOR PROPERTIES Orlando Richey MD LAB - BLOOD ORDERABLES Performing Organization Address City/State/ZIP Code Phon e Number [facility] 500 [place], [place] [phone] [place] [address] 500 [place], [place] [phone] [place] [address] documented in this encounter Visit Diagnoses Diagnosis Kidney replaced by transplant documented in this encounter Care Teams Forestry And Wildlife Manager Relationship Specialty Start Date End Date Momo Forbes PCP - General Family Practice 01/02/14 [facility] [address] [place] [address] documented as of this encounter
--- OUTSIDE RECORDS SUMMARY | 2022-04-07 11:06 | XMS_ITS | Encounter Summary ---
:1950 Author Organization [place] Address [address] [place] [address]. [place] [address] Care Team Providers Name Role Phone Momo Forbes Primary Care Provider Reason for Visit Reason Onset Date Comments Transplant Pharmacy Medication Review 01/26/2017 Encounter Details Date Type Department Care Team Description 01/26/2017 Telephone [facility] Janes Rodriguez, Transplant Pharmacy 500 [facility] [place] [phone] Social History Tobacco Use Types Packs/Day Years [...] filedocumented in this encounter Care Teams Sales Program Coordinator Relationship Specialty Start Date End Date Momo Forbes PCP - General Family Practice 01/02/14 [facility] [address] [place] [address] documented as of this encounter
--- OUTSIDE RECORDS SUMMARY | 2022-04-07 11:06 | XMS_ITS | Encounter Summary ---
:1950 Author Organization [place] Address [address] [place] [address] Care Team Providers Name Role Phone Forbes, Ton Primary Care Provider Reason for Visit Reason Onset Date Comments Transplant 11/07/2017 Encounter Details Date Type Department Care Team Description 11/07/2017 Telephone [facility] Transplant Nazia Jacobson, Transplant Clinic RN [address] [place] [phone] Social History Tobacco Use Types Packs/Day [...] range, repeat tac level in 1 week. BLANKET MAKER TASK: Call patient with instructions per plan. Enter lab orders if needed. documented in this encounter Plan of Treatment Not on filedocumented as of this encounter Visit Diagnoses Not on filedocumented in this encounter Care Teams Spreader Operator Automatic Relationship Specialty Start Date End Date Momo Forbes PCP - General Family Practice 01/02/[address] [address] documented as of this encounter
--- OUTSIDE RECORDS SUMMARY | 2022-04-07 11:06 | XMS_ITS | Encounter Summary ---
:1950 Author Organization [place] Address [facility] [place] [address] Care Team Providers Name Role Phone ForbesMomo santiago A Primary Care Provider Reason for Visit Reason Onset Date Comments Transplant 06/01/2017 [place] returning call Left on 06/05/17 Encounter Details Date Type Department Care Team Description 06/01/2017 [facility] Shiva Kahn, car whacker ([place] Transplant Clinic [facility] returning call Left [facility] [address] on 06/05/17) [place], [place] [phone] [place], [place] [phone] [address] Social History Tobacco Use Types Packs/Day [...] care to get a good 12-hour level. PARENTING SKILLS INSTRUCTOR TASK: Please fax lab order for tacrolimus level Telephone Encounter - Mary [place] - 06/06/2017 7:47 AM CDT Please call [place]. Called on Tuesday left to call him on Tuesday06/06/17. ADDENDUM: PARENTING SKILLS INSTRUCTOR TASK: Call with questions and instruction per [...] on filedocumented in this encounter Care Teams Family Physician Relationship Specialty Start Date End Date Momo Forbes PCP - General Family Practice 01/02/14 [facility] [address] [place] [address] documented as of this encounter
--- OUTSIDE RECORDS SUMMARY | 2022-04-07 11:06 | XMS_ITS | Encounter Summary ---
:1950 Author Organization [place] Address [address] [place] [address]. [place] [address] Care Team Providers Name Role Phone Momo Forbes Primary Care Provider Reason for Visit Reason Onset Date Comments Transplant 05/26/2017 refill Encounter Details Date Type Department Care Team Description 05/26/2017 Refill [facility] Anita Joshi MD Transplant (refill) Nephrology Clinic [address] [place] [phone] [place] [address] (Wo rk) [address] [phone] Social History Tobacco Use Types Packs/Day Years [...] transplant documented in this encounter Care Teams Director Print Relationship Specialty Start Date End Date Momo Forbes PCP - General Family Practice 01/02/14 [facility] [address] [place] [address] documented as of this encounter
--- OUTSIDE RECORDS SUMMARY | 2022-04-07 11:06 | XMS_ITS | Encounter Summary ---
:1950 Author Organization [place] Address [address] [place] [address] Care Team Providers Name Role Phone ForbesMomo santiago A Primary Care Provider Reason for Visit Reason Onset Date Comments Transplant 09/12/2017 Encounter Details Date Type Department Care Team Description 09/12/2017 Telephone [facility] Transplant Nazia Jacobson, Transplant Clinic RN [address] [place] [phone] Social History Tobacco Use Types Packs/Day [...] updated standing lab order and faxed to [facility] lab. HER FOREMAN Telephone Encounter - Nazia Jacobson RN - 09/12/2017 8:36 AM CRUSHER FOREMAN ISSUE: Hyperglycemia (blood sugar 300-600s w/ last 2 blood draws) Overdue for transplant labs AUTOMATIC MACHINE ATTENDANT TASK: Call [place] Guthrie and ask him who is managing his diabetes? Does he have an coil machine operator? He needs to have better blood sugar control, elevated blood sugars can cause damage to his kidney. Remind him that he should be getting transplant labs done monthly. (3 years out from kidney transplant) Send updated lab letter. HER FOREMAN documented in this encounter Plan of Treatment Not on filedocumented as of this encounter Visit Diagnoses Not on filedocumented in this encounter Care Teams Mutuel Clerk Relationship Specialty Start Date End Date Momo Forbes PCP - General Family Practice 01/02/14 [facility] [address] [place] [address] documented as of this encounter
--- OUTSIDE RECORDS SUMMARY | 2022-04-07 11:06 | XMS_ITS | Encounter Summary ---
:1950 Author Organization [place] Address [address] [place] [address] Care Team Providers Name Role Phone Momo Forbes A Primary Care Provider Encounter Details Date Type Department Care Team Description 07/22/[address] [facility] Mariano, Joseph Perdomo isael, [facility] [place] 500 [facility] 717 [place], [place] [phone] [address] [place] [address] [place] [address] (Wo rk) Social History Tobacco [...] Res ults for this MASS SPECTROMETRY PM BUILDING CONSULTANT procedure are in the results section. documented in this encounter Results (ABNORMAL) Tacrolimus level (08/09/2016 12:15 PM BUILDING CONSULTANT) [facility] Method Time Signature Tacrolimus Last 08/08/[address] Tacrolimus 3.8 (L) 5.0 - [facility] Level 15.0 ug/L [facility] Comment: Tacrolimus Reference Range Kidney [...] its perform ance characteristics determined by the [facility], ??Special Chemistry Laboratory. It has not been cleared or approved by the FDA . The laboratory is regulated under CLIA as qualified to perform high-complexity testing. This test is used for clinical purposes. It should not be regarded as investigational or for research. Specimen Anatomical Collection Method Collection Time Receive d Time (Source) Location / / Volume Laterality 08/09/2016 12:15 08/11/2016 PM BUILDING CONSULTANT 10:15 AM BUILDING CONSULTANT Deysi Alicea MD LAB - BLOOD ORDERABLES Performing Organization Address City/State/ZIP Code Phon e Number [facility] [address] documented in this encounter Visit Diagnoses Not on filedocumented in this encounter Care Teams Electro Mechanical Assembler Relationship Specialty Start Date End Date Momo Forbes PCP - General Family Practice 01/02/14 [facility] [address] [place] [address] documented as of this encounter
--- OUTSIDE RECORDS SUMMARY | 2022-04-07 11:07 | XMS_ITS | Encounter Summary ---
:1950 Author Organization [place] Address [address] [place] [address]. [place] [address] Care Team Providers Name Role Phone Momo Forbes Primary Care Provider Reason for Visit Reason Onset Date Comments Transplant Pharmacy Medication Review 02/05/2016 Encounter Details Date Type Department Care Team Description 02/05/2016 Telephone [facility] Nani Humphrey, [facility] Transplant Pharmacy 500 [facility] [place] [address] [place] [phone] [place] [address] (Wo rk) Social History Tobacco Use Types [...] on filedocumented in this encounter Care Teams Leather Goods Maker Relationship Specialty Start Date End Date Momo Forbes PCP - General Family Practice 01/02/14 [facility] [address] [place] [address] documented as of this encounter
--- OUTSIDE RECORDS SUMMARY | 2022-04-07 11:07 | XMS_ITS | Encounter Summary ---
:1950 Author Organization [place] Address [address] [address]. [place] [address] Care Team Providers Name Role Phone Momo Forbes Primary Care Provider Reason for Visit Reason Onset Date Comments Transplant 02/19/2016 refill Encounter Details Date Type Department Care Team Description 02/19/2016 Refill The Transplant Deysi Burns MD Transplant (refill) 2nd Floor, Clinic [phone] [place] [address] [facility] [place] [address] Social History Tobacco Use Types [...] transplant documented in this encounter Care Teams Supply Specialist Relationship Specialty Start Date End Date Momo Forbes PCP - General Family Practice 01/02/14 [facility] 1999 [place], [place] [phone] documented as of this encounter
--- OUTSIDE RECORDS SUMMARY | 2022-04-07 11:07 | XMS_ITS | Encounter Summary ---
:1950 Author Organization [place] Address Critical access hospital0 [facility] [place] [address] Care Team Providers Name Role Phone Leidy Momo He Primary Care Provider Reason for Visit Reason Onset Date Comments Transplant 03/30/2016 refill Encounter Details Date Type Department Care Team Description 03/30/2016 Refill The Transplant Deysi Burns MD Transplant (refill) 2nd Floor, Clinic [phone] [place] [address] [facility] [place] [address] Social History Tobacco Use Types [...] Date: 02/19/16 Quantity: 240 Thanks!! Janelle Jackson [facility] documented in this encounter Plan of Treatment Not on filedocumented as of this encounter Visit Diagnoses Diagnosis Kidney transplanted - Primary Kidney replaced by transplant documented in this encounter Care Teams Fish Icer Relationship Specialty Start Date End Date Momo Forbes PCP - General Family Practice 01/02/[address] [address] documented as of this encounter
--- OUTSIDE RECORDS SUMMARY | 2022-04-07 11:07 | XMS_ITS | Encounter Summary ---
:1950 Author Organization [place] Address [address] [place] [address] Care Team Providers Name Role Phone ForbesMomo santiago A Primary Care Provider Encounter Details Date Type Department Care Team Description 02/20/2016 Orders Only [facility] Mariano, Joseph Perdomo isael, [facility] MICHE[place] 500 [facility] 717 [place], [place] [phone] [address] [place] [address] [place] [address] (Wo rk) Social History Tobacco [...] (ABNORMAL) Tacrolimus level (03/17/2016 10:44 AM CDT) [facility] Method Time Signature Tacrolimus Last 2100 [facility] Dose 03/16/16 [facility] Tacrolimus 4.2 (L) 5.0 - [facility] Level 15.0 ug/L [facility] Comment: Tacrolimus Reference Range Kidney Transplant Pediatric [...] its perform ance characteristics determined by the [facility], ??Special Chemistry Laboratory. It has not [...] Phon e Number [facility] 500 [place], [place] [phone] [place] [address] documented in this encounter Visit Diagnoses Not on filedocumented in this encounter Care Teams Grinder Outside Diameter Relationship Specialty Start Date End Date Momo Forbes PCP - General Family Practice 01/02/14 [facility] [address] [place] [address] documented as of this encounter
--- OUTSIDE RECORDS SUMMARY | 2022-04-07 11:07 | XMS_ITS | Encounter Summary ---
:1950 Author Organization [place] Address [facility] [place] [address] Care Team Providers Name Role Phone Ingrid Santana RN Unavailable Momo Forbes Primary Care Provider Joseph Quintana MD Unavailable Encounter Details Date Type Department Care Team Description 08/14/2015 External Order Results The Transplant Ce nter Nurse, [facility] 2nd Floor, Clinic [address] [phone] Social History Tobacco Use Types Packs/Day Years [...] 4:41 PM Results f or this RESULTS STATISTICAL MACHINE SERVICER procedure are i n the results section. documented in this encounter Results (ABNORMAL) TXP External Lab Result (08/12/2015 4:41 PM STATISTICAL MACHINE SERVICER) [facility] Signature Sodium 135 135 - 145 [...] 59 (L) >60 LABDE SCAN (if mL/min/1.7 Turk[place]) 3/m2 (External) GFR Estimated 48 (L) >60 [...] / / Volume Laterality 08/12/2015 4:41 PM STATISTICAL MACHINE SERVICER Narrative [facility] - 08/14/2015 9:25 AM STATISTICAL MACHINE SERVICER Verified by Freddy Mehta on 08/14. Patient Reported LABORATORY Performing Organization Address City/State/ZIP Code Phon e Number [facility] LABDE SCAN documented in this encounter Visit Diagnoses Not on filedocumented in this encounter Care Teams Group Care Worker Relationship Specialty Start Date End Date Momo Forbes PCP - General Family Practice 01/02/14 [facility] [address] [place] [address] Ingrid Santana, RN Registered Nurse Transplant 02/10/12 10/01/15 Joseph Quintana, Assigned Nephrology 03/29/21 MD Provider [address] [place] [address] 353 [facility] [address] [place] [address] documented as of this encounter
--- OUTSIDE RECORDS SUMMARY | 2022-04-07 11:07 | XMS_ITS | Encounter Summary ---
:1950 Author Organization [place] Address [address] [place] [address]. [place] [address] Care Team Providers Name Role Phone Ingrid Santana RN Unavailable Momo Forbes Primary Care Provider Encounter Details Date Type Department Care Team Description 08/29/2015 Orders Only The Transplant Deepa Morgan Aftercare following organ tr ansplant (Primary Dx); 2nd Floor, Clinic 2A Saima Kidney replaced by transplan t; Tommy Wilburn [facility] er for long-term current use of medication [address] [phone] Social History Tobacco Use Types [...] edication documented in this encounter Care Teams Tip Cementer Relationship Specialty Start Date End Date Momo Forbes PCP - General Family Practice 01/02/14 [facility] [address] [place] [address] Ingrid Santana, RN Registered Nurse Transplant 02/10/12 10/01/15 documented as of this encounter
--- OUTSIDE RECORDS SUMMARY | 2022-04-07 11:07 | XMS_ITS | Encounter Summary ---
:1950 Author Organization [place] Address [address] [place] [address]. [place] [address] Care Team Providers Name Role Phone Momo Forbes Primary Care Provider Reason for Visit Reason Onset Date Comments Transplant 01/16/2016 refill Encounter Details Date Type Department Care Team Description 01/16/2016 Refill The Transplant Deysi Burns MD Transplant (refill) 2nd Floor, Clinic [address]A [phone] [place] [address] [facility] [place] [address] Social History Tobacco Use Types [...] transplant documented in this encounter Care Teams Labor Relations Worker Relationship Specialty Start Date End Date Momo Forbes PCP - General Family Practice 01/02/14 [facility] 1999 [place], [place] [phone] documented as of this encounter
--- OUTSIDE RECORDS SUMMARY | 2022-04-07 11:07 | XMS_ITS | Encounter Summary ---
:1950 Author Organization [place] Address [address] [place] [address]. [place] [address] Care Team Providers Name Role Phone Momo Forbes Primary Care Provider Reason for Visit Reason Onset Date Comments Transplant 03/15/2016 refill Encounter Details Date Type Department Care Team Description 03/15/2016 Refill [facility] Cristy Chen LPN T ransplant (refill) Transplant Clinic [address] [place] [address] [phone] Social History Tobacco Use Types Packs/Day [...] transplant documented in this encounter Care Teams Intensivist Relationship Specialty Start Date End Date Momo Forbes PCP - General Family Practice 01/02/14 [facility] [address] [place] [address] documented as of this encounter
--- OUTSIDE RECORDS SUMMARY | 2022-04-07 11:07 | XMS_ITS | Encounter Summary ---
:1950 Author Organization [place] Address [address] [place] [address]. [place] [address] Care Team Providers Name Role Phone Momo Forbes Primary Care Provider Reason for Visit Reason Onset Date Comments Transplant 02/06/2016 refill Encounter Details Date Type Department Care Team Description 02/06/2016 Refill [facility] Cristy Chen LPN T ransplant (refill) Transplant Clinic [address] [place] [address] [phone] Social History Tobacco Use Types Packs/Day [...] transplant documented in this encounter Care Teams Automobile Rental Clerk Relationship Specialty Start Date End Date Momo Forbes PCP - General Family Practice 01/02/14 [facility] [address] [place] [address] documented as of this encounter
--- OUTSIDE RECORDS SUMMARY | 2022-04-07 11:07 | XMS_ITS | Encounter Summary ---
:1950 Author Organization [place] Address [facility] [place] [address] Care Team Providers Name Role Phone Ingrid Santana RN Unavailable Momo Forbes Primary Care Provider Reason for Referral Consultation - Closed Specialty Diagnoses / Procedures Referred By Contact Refer red To Contact Diagnoses Morbid obesity due to excess calories (H) Deysi Alicea MD [facility] [address] [place] [id number] Referral ID Status Reason Start Date Expiration Date Visits Requ ested Visits Authorized [id number] Closed 09/02/2015 09/01/2016 1 1 AL DIRECTOR Reason for Visit Reason Comments RECHECK Follow up Kidney TX 4 Encounter Details Date Type Department Care Team Description 09/02/2015 Office Visit Nephrology Deysi Alicea, S/P kidney transplant (Prima ry Dx); 2nd Floor, Clinic 2A Morbid obesity due to excess calories (H ) Tommy Wilburn [address] [place] [id number] [place] [address] (Wo rk) [phone] Social History Tobacco Use Types Packs/Day Years [...] Comments Blood Pressure 128/72 09/02/2015 4:32 PM DENTAL DIRECTOR Pulse 61 09/02/2015 4:32 PM DENTAL DIRECTOR Temperature 36.7 ??C (98 ??F) 09/02/2015 4:32 PM DENTAL DIRECTOR Respiratory Rate - - Oxygen Saturation 94% 09/02/2015 4:32 PM DENTAL DIRECTOR Inhaled Oxygen Concentration - - Weight 141.8 kg (312 lb 9.6 oz) 09/02/2015 4:32 PM DENTAL DIRECTOR Height 182.9 cm (6' 0.01) 09/02/2015 4:32 PM DENTAL DIRECTOR Body Mass Index 42.39 09/02/2015 4:32 PM DENTAL DIRECTOR documented in this encounter Progress Notes Deysi [...] discharged on Cumadin; Cumadin was stopped by tipple boss during the follow up visit, as he [...] Years of Education: 14 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 BP completed using cuff size: large AL DIRECTOR documented in this encounter Plan of [...] ) documented in this encounter Care Teams Chemistry Account Manager Relationship Specialty Start Date End Date Momo Forbes PCP - General Family Practice 01/02/14 [facility] [address] [place] [address] Ingrid Santana, RN Registered Nurse Transplant 02/10/12 10/01/15 documented as of this encounter
--- OUTSIDE RECORDS SUMMARY | 2022-04-07 11:07 | XMS_ITS | Encounter Summary ---
:1950 Author Organization [place] Address [address] [place] [address] Care Team Providers Name Role Phone Ingrid Santana RN Unavailable Momo Forbes Primary Care Provider Encounter Details Date Type Department Care Team Description 07/22/2015 Orders Only [facility] Dereck Dangelo MD [facility] 420 [facility] 195 [address] [place], [place] [address] [place] [address] [phone] Social History Tobacco Use Types Packs/Day Years [...] PM R esults for this MASS SPECTROMETRY JOB ORDER CLERK procedure are in the results section. documented in this encounter Results Tacrolimus level (08/12/2015 4:35 PM JOB ORDER CLERK) [facility] Method Time Signature Tacrolimus Last 0700 [facility] Dose 08/12/15 [facility] Tacrolimus 5.3 5.0 - [facility] Level 15.0 ug/L [facility] Comment: Tacrolimus Reference Range Kidney Transplant Pediatric [...] its perform ance characteristics determined by the [facility], ??Special Chemistry Laboratory. It has [...] Volume Laterality 08/12/2015 4:35 PM 5 9:11 JOB ORDER CLERK AM JOB ORDER CLERK Mingo Matas MD LAB - BLOOD ORDERABLES Performing Organization Address City/State/ZIP Code Phon e Number [facility] [address] documented in this encounter Visit Diagnoses Not on filedocumented in this encounter Care Teams Loading And Unloading Supervisor Relationship Specialty Start Date End Date Momo Forbes PCP - General Family Practice 01/02/14 [facility] [address] [place] [address] Ingrid Santana, RN Registered Nurse Transplant 02/10/12 10/01/15 documented as of this encounter
--- OUTSIDE RECORDS SUMMARY | 2022-04-07 11:07 | XMS_ITS | Encounter Summary ---
:1950 Author Organization [place] Address [facility] [place] [address] Care Team Providers Name Role Phone Ingrid Santana RN Unavailable Momo Forbes Primary Care Provider Reason for Visit Reason Onset Date Comments Refill Request 04/21/2015 crestor Encounter Details Date Type Department Care Team Description 04/21/2015 Refill [facility] [address] Refill Request Physicians Orestes Hernandez MD (crestor) Tommy [facility] Building [place] 4th Floor, Clinic 4B 1 [facility] [address] [phone] (Wo rk) [phone] Social History Tobacco Use Types Packs/Day Years [...] # refills: 11 Last Office Visit with [facility] primary care provider: 05/14/14 CHOL 126 02/06/2014 HDL 35 02/06/2014 LDL 71 02/06/2014 TRIG 100 02/06/2014 CHOLHDLRATIO 3.6 02/06/2014 Gayathri Orta [facility] 7[address] [facility] [address] documented in this encounter Plan of Treatment Not on filedocumented as of this encounter Visit Diagnoses Diagnosis DM (diabetes mellitus), type 2 (H) - Ana ashley Type II or unspecified type diabetes aung litus without mention of complication, not stated as uncontrolled Other and unspecified hyperlipidemia documented in this encounter Care Teams Vending Technician Relationship Specialty Start Date End Date Momo Forbes PCP - General Family Practice 01/02/14 [facility] [address] [place] [address] Ingrid Santana, RN Registered Nurse Transplant 02/10/12 10/01/15 documented as of this encounter
--- OUTSIDE RECORDS SUMMARY | 2022-04-07 11:07 | XMS_ITS | Encounter Summary ---
:1950 Author Organization [place] Address [facility] [place] [address] Care Team Providers Name Role Phone Forbes, Ton Primary Care Provider Reason for Visit Reason Comments RECHECK 6 mo follow up,christiano cruz Encounter Details Date Type Department Care Team Description 04/20/2016 Office Visit [facility] Chucho Joshi, Renal hypertension, stage 1-4 or unspecified chronic kidney disease (Primary Dx); Nephrology Clinic Reactive depression; [address] Thrombocytopenia (H) 909 [facility] RANJAN [address] [place] [phone] Social History Tobacco Use Types Packs/Day [...] Body Mass Index 41.55 09/02/2015 4:32 PM BALL MILL OPERATOR documented in this encounter Progress Notes Chucho [...] diabetes and the possible contribution of beta berot to worsening glycemic control, I discontinued his [...] encounter Results Folate RBC (10/25/2016 3:54 PM BALL MILL OPERATOR) athologist Signature HCT Within 46.0 % [address] Folate RBC 663 ng/mL [facility] Comment: Reference range: >=366 (Note) Performed by [facility], [address] [place] [address] [email or web address], Geoff Reed MD, Lab. Director Specimen Anatomical Collection Method Collection Time Receive d Time (Source) Location / / Volume Laterality Blood specimen 10/25/2016 3:54 PM 017 3:55 (specimen) BALL MILL OPERATOR PM BALL MILL OPERATOR Chucho Joshi MD LAB - BLOOD ORDERABLES Performing Organization Address City/State/[facility] Code Phon e Number [address] [address] [facility] documented in this encounter Visit Diagnoses Diagnosis Renal hypertension, stage 1-4 or unspeci fied chronic kidney disease - Primary Reactive depression Dysthymic disorder Thrombocytopenia (H) Thrombocytopenia, unspecified documented in this encounter Care Teams Complaint Adjuster Relationship Specialty Start Date End Date Momo Forbes PCP - General Family Practice 01/02/[address] [address] documented as of this encounter
--- OUTSIDE RECORDS SUMMARY | 2022-04-07 11:07 | XMS_ITS | Encounter Summary ---
:1950 Author Organization [place] Address [facility] [address] Care Team Providers Name Role Phone Ingrid Santana RN Unavailable Momo Forbes Primary Care Provider Reason for Visit Reason Onset Date Comments Patient Reminder 08/28/2015 Encounter Details Date Type Department Care Team Description 08/28/2015 Telephone Nephrology Yesenia Clements CMA Patient Reminder 2nd Floor, Clinic [address] [place], [place] [phone] Social History Tobacco Use Types Packs/Day [...] Telephone Encounter - Yesenia Clements CMA - 08/28/2015 2:29 PM CST Notified patient of upcoming appointment with arrival time. Informed him/her to bring current medication list. Patient confirmed and understood. Yesenia Clements CMA UCTION UNDERWRITER documented in this encounter Plan of Treatment Not on filedocumented as of this encounter Visit Diagnoses Not on filedocumented in this encounter Care Teams Oracle Obiee Developer Relationship Specialty Start Date End Date Momo Forbes PCP - General Family Practice 01/02/14 [facility] [address] [place] [address] Ingrid Santana, RN Registered Nurse Transplant 02/10/12 10/01/15 documented as of this encounter
--- OUTSIDE RECORDS SUMMARY | 2022-04-07 11:07 | XMS_ITS | Encounter Summary ---
:1950 Author Organization [place] Address [facility] [address] Care Team Providers Name Role Phone Ingrid Santana RN Unavailable Momo Forbes Primary Care Provider Joseph Quintana MD Unavailable Encounter Details Date Type Department Care Team Description 02/03/2015 External Order Results The Transplant Ce nter Nurse, [facility] 2nd Floor, Clinic 2A [address] [phone] Social History Tobacco Use Types [...] External Lab Result (01/28/2015 8:56 AM CDT) [facility] Method Time Signature Sodium (External) 140 [...] on filedocumented in this encounter Care Teams Upper Extremity Surgeon Relationship Specialty Start Date End Date Momo Forbes PCP - General Family Practice 01/02/14 [facility] [address] [place] [address] Ingrid Santana, RN Registered Nurse Transplant 02/10/12 10/01/15 Joseph Quintana, Assigned Nephrology 03/29/21 MD Provider 717 [facility] 353 [facility] 1932 [place], [place] [id number] documented as of this encounter
--- OUTSIDE RECORDS SUMMARY | 2022-04-07 11:07 | XMS_ITS | Encounter Summary ---
:1950 Author Organization [place] Address [address] [place] [address]. [place] [address] Care Team Providers Name Role Phone Momo Forbes Primary Care Provider Reason for Visit Reason Onset Date Comments Transplant 02/19/2016 refill Encounter Details Date Type Department Care Team Description 02/19/2016 Refill The Transplant Deysi Burns MD Transplant (refill) 2nd Floor, Clinic 2A [phone] [place] [address] [place] [address] Social History Tobacco Use Types [...] transplant documented in this encounter Care Teams Grain Shoveler Relationship Specialty Start Date End Date Momo Forbes PCP - General Family Practice 01/02/14 [facility] [address] [place], [place] [address] documented as of this encounter
--- OUTSIDE RECORDS SUMMARY | 2022-04-07 11:07 | XMS_ITS | Encounter Summary ---
:1950 Author Organization [place] Address [address] [place] [address] Care Team Providers Name Role Phone Ingrid Santana RN Unavailable Momo Forbes Primary Care Provider Reason for Visit Reason Onset Date Comments Medication Question 01/17/2015 Encounter Details Date Type Department Care Team Description 01/17/2015 Telephone [facility] Beny Staton RPH Medication Question 500 [facility] [address] PHARMACY [phone] [place], [place] [id number] Social History Tobacco Use Types Packs/Day Years [...] keep better tabs. His last to in [facility] were good but that was 8 months ago. Beny Staton [facility] Specialty Pharmacist [phone] documented in this encounter Plan of Treatment Not on filedocumented as of this encounter Visit Diagnoses Not on filedocumented in this encounter Care Teams Metal Milling Machine Operator Relationship Specialty Start Date End Date Momo Forbes PCP - General Family Practice 01/02/14 [facility] [address] [place] [address] Ingrid Santana, RN Registered Nurse Transplant 02/10/12 10/01/15 documented as of this encounter
--- OUTSIDE RECORDS SUMMARY | 2022-04-07 11:07 | XMS_ITS | Encounter Summary ---
:1950 Author Organization [place] Address [facility]0 [facility] [place] [address] Care Team Providers Name Role Phone Ingrid Santana RN Unavailable Momo Forbes Primary Care Provider Reason for Visit Reason Onset Date Comments Refill Request 06/23/2015 amlodipine Encounter Details Date Type Department Care Team Description 06/23/2015 Refill [facility] [address] Refill Request Physicians Orestes Hernandez MD (amlodipine) Tommy [facility] Building [place] 4th Floor, Clinic 4B [address] [facility] [address] [phone] (Wo rk) [phone] Social History Tobacco Use Types Packs/Day Years [...] # refills: 3 Last Office Visit with [facility] primary care provider: 05/14/2014 Future Office Visit: BP Readings from Last 3 Encounters: 05/14/14 141/65 05/13/14 139/73 04/09/14 163/78 [facility] [phone] MIC TILE INSTALLATION HELPER documented in this encounter Plan of Treatment Not on filedocumented as of this encounter Visit Diagnoses Diagnosis HTN (hypertension) - Primary Unspecified essential hypertension documented in this encounter Care Teams Superintendent Institution Relationship Specialty Start Date End Date Momo Forbes PCP - General Family Practice 01/02/14 [facility] [address] [place] [address] Ingrid Santana, RN Registered Nurse Transplant 02/10/12 10/01/15 documented as of this encounter
--- OUTSIDE RECORDS SUMMARY | 2022-04-07 11:07 | XMS_ITS | Encounter Summary ---
:1950 Author Organization [place] Address [facility] [place] [address] Care Team Providers Name Role Phone Ingrid Santana RN Unavailable Momo Forbes Primary Care Provider Reason for Visit Reason Onset Date Comments Refill Request 02/10/2015 mycophenolate, smz/t mp Encounter Details Date Type Department Care Team Description 02/10/2015 Refill The Transplant Deysi Burns, Refill Request 2nd Floor, Clinic 2A (mycophenolate, [facility] smz/tmp) Building [address] [place] [address] [place] [address] Social History Tobacco Use Types [...] Fill Date: 01/09/15 Last Fill Quantity: 240 [id number] Last Fill Date: 01/09/15 Last Fill Quantity: 31 Gayathri Orta [facility] 711 [facility] [address] documented in this encounter Plan of Treatment Not on filedocumented as of this encounter Visit Diagnoses Diagnosis S/P kidney transplant - Primary Kidney replaced by transplant documented in this encounter Care Teams Laborer Road Relationship Specialty Start Date End Date Momo Forbes PCP - General Family Practice 01/02/[address] [address] Ingrid Santana, RN Registered Nurse Transplant 02/10/12 10/01/15 documented as of this encounter
--- OUTSIDE RECORDS SUMMARY | 2022-04-07 11:07 | XMS_ITS | Encounter Summary ---
:1950 Author Organization [place] Address [facility] [place] [address] Care Team Providers Name Role Phone Mmoo Forbes Primary Care Provider Joseph Quintana MD Unavailable Encounter Details Date Type Department Care Team Description 03/18/2016 External Order Results [facility] Nurse, [facility] Transplant Clinic [address] [place] [address] Social History Tobacco Use Types [...] External Lab Result (03/17/2016 10:45 AM CDT) [facility] Method Time Signature Sodium (External) 139 135 [...] on filedocumented in this encounter Care Teams Pharmacist Helper Relationship Specialty Start Date End Date Momo Forbes PCP - General Family Practice 01/02/14 [facility] 1999 [place] [address] Joseph Quintana, Assigned Nephrology 03/29/21 MD Provider [address] [place] [address] [address] [place] [address] documented as of this encounter
--- OUTSIDE RECORDS SUMMARY | 2022-04-07 11:08 | XMS_ITS | Encounter Summary ---
:1950 Author Organization [place] Address [address] [facility] [place] [address] Care Team Providers Name Role Phone Ingrid Santana RN Unavailable Momo Forbes Primary Care Provider Reason for Visit Reason Onset Date Comments Medication Question 07/26/2014 Encounter Details Date Type Department Care Team Description 07/26/2014 Telephone PHARMACY Duncan, Fina, [facility] Medication Question 500 [facility] [place] [address] 713 [facility] [phone] [place] [address] Social History Tobacco Use Types [...] very well healthy and happy Beny Staton [facility] Specialty Pharmacist [phone] L SANDER documented in this encounter Plan of Treatment Not on filedocumented as of this encounter Visit Diagnoses Not on filedocumented in this encounter Care Teams Circulation Librarian Relationship Specialty Start Date End Date Momo Forbes PCP - General Family Practice 01/02/14 [facility] [address] [place] [address] Ingrid Santana, RN Registered Nurse Transplant 02/10/12 10/01/15 documented as of this encounter
--- OUTSIDE RECORDS SUMMARY | 2022-04-07 11:08 | XMS_ITS | Encounter Summary ---
:1950 Author Organization [place] Address [address] [place] [address] Care Team Providers Name Role Phone Ingrid Santana RN Unavailable Momo Forbes Primary Care Provider Reason for Visit Reason Onset Date Comments Medication Question 09/12/2014 Encounter Details Date Type Department Care Team Description 09/12/2014 Telephone [facility] Beny Staton RPH Medication Question 500 [facility] [place] [address] PHARMACY [phone] [place], [place] [phone] Social History Tobacco Use Types Packs/Day Years [...] his dr told himhis bp was good. T METAL LAY OUT WORKER documented in this encounter Plan of Treatment Not on filedocumented as of this encounter Visit Diagnoses Not on filedocumented in this encounter Care Teams Dynamite Packing Machine Operator Relationship Specialty Start Date End Date Momo Forbes PCP - General Family Practice 01/02/14 [facility] [address] [place] [address] Ingrid Santana, RN Registered Nurse Transplant 02/10/12 10/01/15 documented as of this encounter
--- OUTSIDE RECORDS SUMMARY | 2022-04-07 11:08 | XMS_ITS | Encounter Summary ---
:1950 Author Organization [place] Address [facility] [place] [address] Care Team Providers Name Role Phone Ingrid Santana RN Unavailable Momo Forbes Primary Care Provider Joseph Quintana MD Unavailable Encounter Details Date Type Department Care Team Description 07/17/2014 External Order Results The Transplant Ce nter Nurse, [facility] 2nd Floor, Clinic [address]A [address] [phone] Social History Tobacco Use Types Packs/Day Years [...] 8:28 AM Results f or this RESULTS BRANCH CREDIT COUNSELOR procedure are i n the results section. documented in this encounter Results (ABNORMAL) TXP External Lab Result (07/15/2014 8:28 AM BRANCH CREDIT COUNSELOR) [facility] Sodium 138 135 - [...] 60 (L) >60 LABDE SCAN (if ml/min/1.7 Tunisian) 3m2 (External) GFR Estimated 49 (L) >60 [...] / / Volume Laterality 07/15/2014 8:28 AM BRANCH CREDIT COUNSELOR Narrative [facility] - 07/17/2014 8:35 AM BRANCH CREDIT COUNSELOR Verified by Maribel Plunkett on 07/17/20 14. Patient Reported LABORATORY Performing Organization Address City/State/ZIP Code Phon e Number [facility]DE SCAN documented in this encounter Visit Diagnoses Not on filedocumented in this encounter Care Teams Eggs Inspector Relationship Specialty Start Date End Date Momo Forbes PCP - General Family Practice 01/02/14 [facility] [address] [place] [address] Ingrid Santana, RN Registered Nurse Transplant 02/10/12 10/01/15 Joseph Quintana, Assigned Nephrology 03/29/21 MD Provider [address] [place] [address] [address] [place], [place] [phone] documented as of this encounter
--- OUTSIDE RECORDS SUMMARY | 2022-04-07 11:08 | XMS_ITS | Encounter Summary ---
:1950 Author Organization [place] Address [facility] [place] [address] Care Team Providers Name Role Phone Ingrid Santana RN Unavailable Momo Forbes Primary Care Provider Reason for Visit Reason Onset Date Comments Transplant 06/20/2014 FK 6.6 Encounter Details Date Type Department Care Team Description 06/20/2014 Telephone Nephrology Carmelita Rosario, Transplant (FK 6.6) 2nd Floor, Clinic 2A BOGDAN [place] [phone] Social History Tobacco Use Types Packs/Day [...] transplant documented in this encounter Care Teams Bleach Supervisor Relationship Specialty Start Date End Date Momo Forbes PCP - General Family Practice 01/02/14 [facility] [address] [place] [address] Ingrid Santana, BOGDAN Registered Nurse Transplant 02/10/12 10/01/15 documented as of this encounter
--- OUTSIDE RECORDS SUMMARY | 2022-04-07 11:08 | XMS_ITS | Encounter Summary ---
:1950 Author Organization [place] Address [facility] [place] [address] Care Team Providers Name Role Phone Ingrid Santana RN Unavailable Momo Forbes Primary Care Provider Joseph Quintana MD Unavailable Encounter Details Date Type Department Care Team Description 08/28/2014 External Order Results The Transplant Ce nter Nurse, [facility] 2nd Floor, Clinic [address] [phone] Social History Tobacco Use Types [...] 08/26/2014 10:25 AM Results for this RESULTS COMMUTATOR PRESSER procedure are i n the results section. documented in this encounter Results (ABNORMAL) TXP External Lab Result (08/26/2014 10:25 AM COMMUTATOR PRESSER) Analysis Performed At [facility] Time Signature Sodium 139 135 - 145 [...] 58 (L) >60 LABDE SCAN (if ml/min/1.7 Citizen Of [place]) 3m2 (External) GFR Estimated 48 (L) >60 [...] / / Volume Laterality 08/26/2014 10:25 AM COMMUTATOR PRESSER Narrative JESSICA PFT - 08/28/2014 4:34 PM COMMUTATOR PRESSER Verified by Freddy Mehta on 08/28. Patient Reported LABORATORY Performing Organization Address City/State/ZIP Code Phon e Number BREEZE PFT LABDE SCAN documented in this encounter Visit Diagnoses Not on filedocumented in this encounter Care Teams Lead Database Developer Relationship Specialty Start Date End Date Momo Forbes PCP - General Family Practice 01/02/14 [facility] [address] [place] [address] Ingrid Santana, RN Registered Nurse Transplant 02/10/12 10/01/15 Joseph Quintana, Assigned Nephrology 03/29/21 MD Provider [address] [place] [address] [place] [phone] documented as of this encounter
--- OUTSIDE RECORDS SUMMARY | 2022-04-07 11:08 | XMS_ITS | Encounter Summary ---
:1950 Author Organization [place] Address [facility]0 [facility] [place] [address] Care Team Providers Name Role Phone Ingrid Santana RN Unavailable Momo Forbes Primary Care Provider Joseph Quintana MD Unavailable Encounter Details Date Type Department Care Team Description 07/31/2014 External Order Results The Transplant Ce nter Nurse, [facility] 2nd Floor, Clinic [address]A [address] [phone] Social History Tobacco Use Types Packs/Day Years [...] 8:25 AM Results f or this RESULTS DIRECTOR OF QUALITY CONTROL procedure are i n the results section. documented in this encounter Results (ABNORMAL) TXP External Lab Result (07/29/2014 8:25 AM DIRECTOR OF QUALITY CONTROL) [facility] Method Time Signature Sodium (External) 138 [...] / / Volume Laterality 07/29/2014 8:25 AM DIRECTOR OF QUALITY CONTROL Narrative BREEZE PFT - 07/31/2014 2:47 PM DIRECTOR OF QUALITY CONTROL Verified by Nazia Duncan on 07/31/2014. Verified by Freddy Mehta on 07/31. Patient Reported LABORATORY Performing Organization Address City/State/ZIP Code Phon e Number [facility] LABDE SCAN documented in this encounter Visit Diagnoses Not on filedocumented in this encounter Care Teams Underground Distribution Engineer Relationship Specialty Start Date End Date Momo Forbes PCP - General Family Practice 01/02/14 [facility] [address] [place] [address] Ingrid Santana, RN Registered Nurse Transplant 02/10/12 10/01/15 Joseph Quintana, Assigned Nephrology 03/29/21 MD Provider 7 [facility] 353 [facility] [address] [place] [address] documented as of this encounter
--- OUTSIDE RECORDS SUMMARY | 2022-04-07 11:08 | XMS_ITS | Encounter Summary ---
:1950 Author Organization [place] Address [facility] [place] [address] Care Team Providers Name Role Phone Ingrid Santnaa RN Unavailable Momo Forbes Primary Care Provider Reason for Visit Reason Onset Date Comments Transplant 12/31/2014 Encounter Details Date Type Department Care Team Description 12/31/2014 Telephone [facility] Transplant [facility] [address] [place] [phone] Social History Tobacco Use Types [...] on filedocumented in this encounter Care Teams Grey Washer Relationship Specialty Start Date End Date Momo Forbes PCP - General Family Practice 01/02/14 [facility] [address] [place] [address] Ingrid Santana, RN Registered Nurse Transplant 02/10/12 10/01/15 documented as of this encounter
--- OUTSIDE RECORDS SUMMARY | 2022-04-07 11:08 | XMS_ITS | Encounter Summary ---
:1950 Author Organization [place] Address [facility] [place] [address] Care Team Providers Name Role Phone Ingrid Santana RN Unavailable Momo Forbes Primary Care Provider Encounter Details Date Type Department Care Team Description 12/27/2014 External Order Results The Transplant Ce krish Nurse, [facility] 2nd Floor, Clinic [address]A [address] [phone] Social History Tobacco Use Types [...] External Lab Result (12/25/2014 9:48 AM CDT) [facility] Method Time Signature Sodium 138 135 [...] 51 (L) >60 LABDE SCAN (if ml/min/1. Macanese) 73m2 (External) GFR Estimated 42 (L) >60 [...] on filedocumented in this encounter Care Teams Corrugator Relationship Specialty Start Date End Date Momo Forbes PCP - General Family Practice 01/02/14 [facility] [address] [place] [address] Ingrid Santana, RN Registered Nurse Transplant 02/10/12 10/01/15 documented as of this encounter
--- OUTSIDE RECORDS SUMMARY | 2022-04-07 11:08 | XMS_ITS | Encounter Summary ---
:1950 Author Organization [place] Address [facility] [place] [address] Care Team Providers Name Role Phone Ingrid Santana RN Unavailable Momo Forbes Primary Care Provider Joseph Quintana MD Unavailable Encounter Details Date Type Department Care Team Description 06/24/2014 External Order Results The Transplant Ce nter Nurse, [facility] 2nd Floor, Clinic [address]A [address] [phone] Social History Tobacco Use Types Packs/Day Years [...] 8:37 AM Results f or this RESULTS MOLD BURNER procedure are i n the results section. documented in this encounter Results (ABNORMAL) TXP External Lab Result (06/24/2014 8:37 AM MOLD BURNER) [facility] Sodium 139 135 - 145 [...] 54 (L) >60 LABDE SCAN (if ml/min/1.7 Polish) 3m2 (External) GFR Estimated 44 (L) >60 [...] / / Volume Laterality 06/24/2014 8:37 AM MOLD BURNER Narrative JESSICA PFT - 06/24/2014 2:52 PM MOLD BURNER Verified by Sofie Verdin on 4. Patient Reported LABORATORY Performing Organization Address City/State/ZIP Code Phon e Number [facility]ZE PFT LABDE SCAN documented in this encounter Visit Diagnoses Not on filedocumented in this encounter Care Teams Floor Helper Relationship Specialty Start Date End Date Momo Forbes PCP - General Family Practice 01/02/14 [facility] [address] [place] [address] Ingrid Santana, RN Registered Nurse Transplant 02/10/12 10/01/15 Joseph Quintana, Assigned Nephrology 03/29/21 MD Provider [address] [place] [address] [address] [place], [place] [phone] documented as of this encounter
--- OUTSIDE RECORDS SUMMARY | 2022-04-07 11:08 | XMS_ITS | Encounter Summary ---
:1950 Author Organization [place] Address [address] [place] [address] Care Team Providers Name Role Phone Ingrid Santana RN Unavailable Momo Forbes Primary Care Provider Encounter Details Date Type Department Care Team Description 12/20/2014 Orders Only [facility], Joseph [facility], [facility] jm [place] [address] [phone] [place] [address] 596 [place] [address] (Wo rk) Social History Tobacco [...] Tacrolimus Last 12/24/14 [facility] Dose [address] [facility] Tacrolimus 9.5 5.0 - [facility] 15.0 ug/L [facility] Comment: Tacrolimus Reference Range Kidney Transplant Pediatric [...] its perform ance characteristics determined by the [facility], ??Special Chemistry Laboratory. It has [...] Organization Address City/State/ZIP Code Phon e Number [facility] [address] documented in this encounter Visit Diagnoses Not on filedocumented in this encounter Care Teams Campus Recruiting Coordinator Relationship Specialty Start Date End Date Momo Forbes PCP - General Family Practice 01/02/14 [facility] [address] [place] [address] Ingrid Santana, RN Registered Nurse Transplant 02/10/12 10/01/15 documented as of this encounter
--- OUTSIDE RECORDS SUMMARY | 2022-04-07 11:08 | XMS_ITS | Encounter Summary ---
:1950 Author Organization [place] Address [facility] [place] [address] Care Team Providers Name Role Phone Ingrid Santana RN Unavailable Momo Forbes Primary Care Provider Joseph Quintana MD Unavailable Encounter Details Date Type Department Care Team Description 07/25/2014 External Order Results The Transplant Ce nter Nurse, [facility] 2nd Floor, Clinic [address]A [address] [phone] Social History Tobacco Use Types Packs/Day Years [...] 8:22 AM Results f or this RESULTS REGIONAL DIRECTOR procedure are i n the results section. documented in this encounter Results (ABNORMAL) TXP External Lab Result (07/22/2014 8:22 AM REGIONAL DIRECTOR) [facility] Time [facility] Sodium 140 135 - [...] 52 (L) >60 LABDE SCAN (if ml/min/1.7 Ecu[place]orean) 3m2 (External) GFR Estimated 43 (L) >60 [...] / / Volume Laterality 07/22/2014 8:22 AM REGIONAL DIRECTOR Narrative JESSICA PFT - 07/25/2014 6:19 AM REGIONAL DIRECTOR Verified by Janee Alexis on 07/25/2014 . Patient Reported LABORATORY Performing Organization Address City/State/ZIP Code Phon e Number BREEZE PFT LABDE SCAN documented in this encounter Visit Diagnoses Not on filedocumented in this encounter Care Teams Er Nurse Relationship Specialty Start Date End Date Momo Forbes PCP - General Family Practice 01/02/14 [facility] [address] [place] [address] Ingrid Santana, RN Registered Nurse Transplant 02/10/12 10/01/15 Joseph Quintana, Assigned Nephrology 03/29/21 MD Provider [address] [place] [address] 1932 [place] [address] documented as of this encounter
--- OUTSIDE RECORDS SUMMARY | 2022-04-07 11:08 | XMS_ITS | Encounter Summary ---
:1950 Author Organization [place] Address [address] [place] [address]. [place] [address] Care Team Providers Name Role Phone Ingrid Santana RN Unavailable Momo Forbes Primary Care Provider Encounter Details Date Type Department Care Team Description 08/03/2014 Abstract The Transplant [facility] 2nd Floor, Clinic [address]A [address] [phone] Social History Tobacco Use [...] on filedocumented in this encounter Care Teams Community Support Specialist Relationship Specialty Start Date End Date Momo Forbes PCP - General Family Practice 01/02/14 [facility] [address] [place] [address] Ingrid Santana RN Registered Nurse Transplant 02/10/12 10/01/15 documented as of this encounter
--- OUTSIDE RECORDS SUMMARY | 2022-04-07 11:08 | XMS_ITS | Encounter Summary ---
:1950 Author Organization [place] Address [address] [place] [address] Care Team Providers Name Role Phone Ingrid Santana RN Unavailable Momo Forbes Primary Care Provider Encounter Details Date Type Department Care Team Description 06/22/[address] [facility], Joseph [facility], [facility] jm [place] [address] [phone] [place] [address] 659 [place] [address] (Wo rk) Social History Tobacco [...] AM R esults for this MASS SPECTROMETRY PARTS ROOM ASSISTANT procedure are in the results section. TACROLIMUS BY TANDEM Routine 07/08/2014 8:15 AM R esults for this MASS SPECTROMETRY PARTS ROOM ASSISTANT procedure are in the results section. TACROLIMUS BY TANDEM Routine 07/01/2014 8:25 AM R esults for this MASS SPECTROMETRY PARTS ROOM ASSISTANT procedure are in the results section. TACROLIMUS BY TANDEM Routine 06/24/2014 8:30 AM R esults for this MASS SPECTROMETRY PARTS ROOM ASSISTANT procedure are in the results section. documented in this encounter Results Tacrolimus level (07/15/2014 8:25 AM PARTS ROOM ASSISTANT) [facility] gist Method Time Signature Tacrolimus Last 07/14/[address] [facility] [address] [facility] Tacrolimus 8.1 5.0 - [facility] Level 15.0 ug/L [facility] Comment: Tacrolimus Reference Range [...] / Volume Laterality 07/15/2014 8:25 AM 4 PARTS ROOM ASSISTANT 10:56 AM PARTS ROOM ASSISTANT Deysi Alicea MD LAB - BLOOD ORDERABLES Performing Organization Address City/State/ZIP Code Phon e Number [facility] 500 [place] [address] [facility] Tacrolimus level (07/08/2014 8:15 AM PARTS ROOM ASSISTANT) [facility] gist Method Time Signature Tacrolimus Last 1999 [facility] Dose 07/07/14 [facility] Tacrolimus 8.6 5.0 - [facility] Level 15.0 ug/L [facility] Comment: Tacrolimus Reference Range [...] / Volume Laterality 07/08/2014 8:15 AM 4 PARTS ROOM ASSISTANT 11:03 AM PARTS ROOM ASSISTANT Deysi Alicea MD LAB - BLOOD ORDERABLES Performing Organization Address City/State/ZIP Code Phon e Number [facility] 500 [place] [address] [facility] Tacrolimus level (07/01/2014 8:25 AM PARTS ROOM ASSISTANT) [facility] gist Method Time Signature Tacrolimus Last 1999, [facility] Dose 06/30/14 [facility] Tacrolimus 9.3 5.0 - [facility] Level 15.0 ug/L [facility] Comment: Tacrolimus Reference Range [...] / Volume Laterality 07/01/2014 8:25 AM 4 PARTS ROOM ASSISTANT 12:11 PM PARTS ROOM ASSISTANT Mingo Dangelo MD LAB - BLOOD ORDERABLES Performing Organization Address City/State/ZIP Code Phon e Number [facility] 500 [place] [address] [facility] Tacrolimus level (06/24/2014 8:30 AM PARTS ROOM ASSISTANT) [facility] gist Method Time Signature Tacrolimus Last 1999 [facility] Dose 06/23/14 [facility] Tacrolimus 10.5 5.0 - [facility] Level 15.0 ug/L [facility] Comment: Tacrolimus Reference Range [...] / Volume Laterality 06/24/2014 8:30 AM 4 PARTS ROOM ASSISTANT 11:18 AM PARTS ROOM ASSISTANT Deysi Alicea MD LAB - BLOOD ORDERABLES Performing Organization Address City/State/ZIP Code Phon e Number [facility] 500 [place] [address] [facility] documented in this encounter Visit Diagnoses Not on filedocumented in this encounter Care Teams Chemical Recovery Operator Relationship Specialty Start Date End Date Momo Forbes PCP - General Family Practice 01/02/14 [facility] [address] [place] [address] Ingrid Santana, RN Registered Nurse Transplant 02/10/12 10/01/15 documented as of this encounter
--- OUTSIDE RECORDS SUMMARY | 2022-04-07 11:08 | XMS_ITS | Encounter Summary ---
:1950 Author Organization [place] Address [address] [place] [address] Care Team Providers Name Role Phone Ingrid Santana RN Unavailable Momo Forbes Primary Care Provider Encounter Details Date Type Department Care Team Description 08/22/2014 Orders Only [facility], Joseph [facility], [facility] jm [place] [address] [phone] [place] [address] 743 [place] [address] (Wo rk) Social History Tobacco [...] Res ults for this MASS SPECTROMETRY AM CLINICAL LABORATORY AIDE procedure are in the results section. documented in this encounter Results Tacrolimus level (08/26/2014 10:21 AM CLINICAL LABORATORY AIDE) Patholo gist Method Time Signature Tacrolimus Last 08/25/14 [facility] Dose 2030 [facility] Tacrolimus 6.6 5.0 - [facility] 15.0 ug/L [facility] Comment: Tacrolimus Reference Range Kidney [...] its perform ance characteristics determined by the [facility], ??Special Chemistry Laboratory. It has not been cleared or approved by the FDA . The laboratory is regulated under CLIA as qualified to perform high-complexity testing. This test is used for clinical purposes. It should not be regarded as investigational or for research. Specimen Anatomical Collection Method Collection Time Receive d Time (Source) Location / / Volume Laterality 08/26/2014 10:21 08/28/2014 AM CLINICAL LABORATORY AIDE 11:34 AM CLINICAL LABORATORY AIDE Mingo Dangelo MD LAB - BLOOD ORDERABLES Performing Organization Address City/State/ZIP Code Phon e Number [facility] [address] documented in this encounter Visit Diagnoses Not on filedocumented in this encounter Care Teams Extractor Machine Operator Relationship Specialty Start Date End Date Momo Forbes PCP - General Family Practice 01/02/14 [facility] 1999 [place] [address] Ingrid Santana, RN Registered Nurse Transplant 02/10/12 10/01/15 documented as of this encounter
--- OUTSIDE RECORDS SUMMARY | 2022-04-07 11:08 | XMS_ITS | Encounter Summary ---
:1950 Author Organization [place] Address [facility] [place] [address] Care Team Providers Name Role Phone Ingrid Santana RN Unavailable Momo Forbes Primary Care Provider Joseph Quintana MD Unavailable Encounter Details Date Type Department Care Team Description 07/10/2014 External Order Results The Transplant Ce nter Nurse, [facility] 2nd Floor, Clinic [address]A [address] [phone] Social History Tobacco Use Types Packs/Day Years [...] 8:17 AM Results f or this RESULTS SENIOR ANALYST PROGRAMMER procedure are i n the results section. documented in this encounter Results (ABNORMAL) TXP External Lab Result (07/08/2014 8:17 AM SENIOR ANALYST PROGRAMMER) [facility] Time Signature Sodium 138 135 - [...] Estimated >60 >60 LABDE SCAN (if ml/min/1.7 Mexican) 3m2 (External) GFR Estimated 51 (L) >60 [...] / / Volume Laterality 07/08/2014 8:17 AM SENIOR ANALYST PROGRAMMER Narrative JESSICA PFT - 07/10/2014 6:20 AM SENIOR ANALYST PROGRAMMER Verified by Janee Alexis on 07/10/2014 . Patient Reported LABORATORY Performing Organization Address City/State/ZIP Code Phon e Number BREEZE PFT LABDE SCAN documented in this encounter Visit Diagnoses Not on filedocumented in this encounter Care Teams Auto Tech Relationship Specialty Start Date End Date Momo Forbes PCP - General Family Practice 01/02/14 [facility] [address] [place] [address] Ingrid Santana, RN Registered Nurse Transplant 02/10/12 10/01/15 Joseph Quintana, Assigned Nephrology 03/29/21 MD Provider [address] [place] [address] 1932 [place] [address] documented as of this encounter
--- OUTSIDE RECORDS SUMMARY | 2022-04-07 11:08 | XMS_ITS | Encounter Summary ---
:1950 Author Organization [place] Address [address] [place] [address] Care Team Providers Name Role Phone Ingrid Santana RN Unavailable Momo Forbes Primary Care Provider Encounter Details Date Type Department Care Team Description 07/22/2014 Orders Only [facility], Joseph [facility], [facility] [address] [phone] [place] [address] 756 [place] [address] (Wo rk) Social History Tobacco [...] AM Resul ts for this SINGLE ANTIGEN CLINICAL NUTRITION MANAGER procedure are in the results section. HLA LUKASZ CLASS I Routine 07/29/2014 8:20 AM Result s for this SINGLE ANTIGEN CLINICAL NUTRITION MANAGER procedure are in the results section. TACROLIMUS BY TANDEM Routine 07/29/2014 8:20 AM R esults for this MASS SPECTROMETRY CLINICAL NUTRITION MANAGER procedure are in the results section. TACROLIMUS BY TANDEM Routine 07/22/2014 8:20 AM R esults for this MASS SPECTROMETRY CLINICAL NUTRITION MANAGER procedure are in the results section. documented in this encounter Results HLA Lukasz Class II Single Antigen (07/29/2014 8:20 AM CLINICAL NUTRITION MANAGER) [facility] [employer] Method Time Signature SA2 Test SA HI [...] Volume Laterality 07/29/2014 8:20 AM 4 3:26 CLINICAL NUTRITION MANAGER PM CLINICAL NUTRITION MANAGER Deysi Alicea MD LAB - IMMUNOLOGY ORDERABLES Performing Organization Address City/State/ZIP Code Phon e Number [facility] Immunology/Histocompatabil [place], [place] [address] [facility] [address] [facility] [address] Building, Room 3-580 HISTOTRAC HLA Lukasz Class I Single Antigen (07/29/2014 8:20 AM CLINICAL NUTRITION MANAGER) [facility] Method Time Signature SA1 Test SA HI [...] Volume Laterality 07/29/2014 8:20 AM 4 3:26 CLINICAL NUTRITION MANAGER PM CLINICAL NUTRITION MANAGER Deysi Alicea MD LAB - IMMUNOLOGY ORDERABLES Performing Organization Address City/State/ZIP Code Phon e Number [facility] Immunology/Histocompatabil [place] [phone] 55 [address]eh [facility] [address] [facility] [address] Building, Room 3-580 HISTOTRAC Tacrolimus level (07/29/2014 8:20 AM CLINICAL NUTRITION MANAGER) [facility] gist Method Time Signature Tacrolimus Last 1999 [facility] Dose 07/28/14 [facility] Tacrolimus 10.5 5.0 - [facility] Level 15.0 ug/L [facility] Comment: Tacrolimus Reference Range [...] / Volume Laterality 07/29/2014 8:20 AM 4 CLINICAL NUTRITION MANAGER 11:17 AM CLINICAL NUTRITION MANAGER Deysi Alicea MD LAB - BLOOD ORDERABLES Performing Organization Address City/State/ZIP Code Phon e Number [facility] 500 [place], [place] [phone] [place] [address] [facility] Tacrolimus level (07/22/2014 8:20 AM CLINICAL NUTRITION MANAGER) [facility] gist Method Time Signature Tacrolimus Last 1929 [facility] Dose 07/21/14 [facility] Tacrolimus 10.8 5.0 - [facility] Level 15.0 ug/L [facility] Comment: Tacrolimus Reference Range [...] / Volume Laterality 07/22/2014 8:20 AM 4 CLINICAL NUTRITION MANAGER 11:45 AM CLINICAL NUTRITION MANAGER Deysi Alicea MD LAB - BLOOD ORDERABLES Performing Organization Address City/State/ZIP Code Phon e Number [facility] [address] [place], [place] [phone] [place] [address] LABS documented in this encounter Visit Diagnoses Not on filedocumented in this encounter Care Teams Monogram Technician Relationship Specialty Start Date End Date Momo Forbes PCP - General Family Practice 01/02/14 [facility] [address] [place] [address] Ingrid Santana, RN Registered Nurse Transplant 02/10/12 10/01/15 documented as of this encounter
--- OUTSIDE RECORDS SUMMARY | 2022-04-07 11:08 | XMS_ITS | Encounter Summary ---
:1950 Author Organization [place] Address [facility] [place] [address] Care Team Providers Name Role Phone Ingrid Santana RN Unavailable Momo Forbes Primary Care Provider Encounter Details Date Type Department Care Team Description 06/10/2014 External Order Results The Transplant Ce ntjakob Nurse, [facility] 2nd Floor, Clinic [address]A [address] [phone] Social History Tobacco Use Types [...] 60 (L) >60 LABDE SCAN (if ml/min/1.7 Brazilian) 3m2 (External) GFR Estimated 49 (L) >60 [...] on filedocumented in this encounter Care Teams Check Writer Salesperson Relationship Specialty Start Date End Date Momo Forbes PCP - General Family Practice 01/02/14 [facility] 1999 [place] [phone] Ingrid Santana, RN Registered Nurse Transplant 02/10/12 10/01/15 documented as of this encounter
--- OUTSIDE RECORDS SUMMARY | 2022-04-07 11:08 | XMS_ITS | Encounter Summary ---
:1950 Author Organization [place] Address [facility] [place] [address] Care Team Providers Name Role Phone Ingrid Santana RN Unavailable Momo Forbes Primary Care Provider Reason for Visit Reason Onset Date Comments Transplant 08/08/2014 immunosuppression mckenzie trejo Encounter Details Date Type Department Care Team Description 08/08/2014 Refill Nephrology Shiva Kahn RN Transplant 2nd Floor, Clinic 2A [facility] (immunosuppression Sanders [place] [facility] management) Building [address] [place] [phone] Social History Tobacco Use Types Packs/Day Years [...] to lower Prograf dose to 1.5mg BID. CAL LATHE OPERATOR Telephone Encounter - Shiva Kahn RN - 08/08/2014 5:33 PM CST ISSUE: Tacrolimus level 9.0. New target tacrolimus levels 6-8 since patient is now 6 months post kidney transplant. PLAN: Decrease Prograf dose from 2 mg twice daily to 1.5 mg twice daily. TASK: Please call patient with instructions for dose change. 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
--- OUTSIDE RECORDS SUMMARY | 2022-04-07 11:08 | XMS_ITS | Encounter Summary ---
:1950 Author Organization [place] Address [address] [place] [address] Care Team Providers Name Role Phone Ingrid Santana RN Unavailable Momo Forbes Primary Care Provider Reason for Visit Reason Onset Date Comments Medication Question 10/11/2014 Encounter Details Date Type Department Care Team Description 10/11/2014 Telephone [facility] Beny Staton RPH Medication Question 500 [facility] [place] [address] PHARMACY [phone] [place], [place] [phone] Social History Tobacco Use Types Packs/Day Years [...] activity before he checks it. Beny Staton [facility] Specialty Pharmacist [phone] COURSE STARTER documented in this encounter Plan of Treatment Not on filedocumented as of this encounter Visit Diagnoses Not on filedocumented in this encounter Care Teams Fleet Salesperson Relationship Specialty Start Date End Date Momo Forbes PCP - General Family Practice 01/02/14 [facility] [address] [place] [address] Ingrid Santana, RN Registered Nurse Transplant 02/10/12 10/01/15 documented as of this encounter
--- OUTSIDE RECORDS SUMMARY | 2022-04-07 11:08 | XMS_ITS | Encounter Summary ---
:1950 Author Organization [place] Address [facility] [place] [address] Care Team Providers Name Role Phone Ingrid Santana RN Unavailable Momo Forbes Primary Care Provider Joseph Quintana MD Unavailable Encounter Details Date Type Department Care Team Description 08/06/2014 External Order Results The Transplant Ce nter Nurse, [facility] 2nd Floor, Clinic 2A [address] [phone] Social History Tobacco Use Types Packs/Day Years [...] 8:39 AM Results f or this RESULTS MARINE ENGINEERING TEACHER procedure are i n the results section. documented in this encounter Results (ABNORMAL) TXP External Lab Result (08/05/2014 8:39 AM MARINE ENGINEERING TEACHER) Analysis [facility]formed At [facility] Time Signature Sodium 137 135 - 145 [...] 55 (L) >60 LABDE SCAN (if ml/min/1.7 Austrian) 3m2 (External) GFR Estimated 45 (L) >60 [...] / / Volume Laterality 08/05/2014 8:39 AM MARINE ENGINEERING TEACHER Narrative ZACHERYTYLER PFT - 08/06/2014 7:40 AM MARINE ENGINEERING TEACHER Verified by Mary Whitehead on 08/06/2014. Patient Reported LABORATORY Performing Organization Address City/State/ZIP Code Phon e Number BREEZE PFT LABDE SCAN documented in this encounter Visit Diagnoses Not on filedocumented in this encounter Care Teams Cook Barbecue Relationship Specialty Start Date End Date Momo Forbes PCP - General Family Practice 01/02/14 [facility] [address] [place] [address] Ingrid Santana, RN Registered Nurse Transplant 02/10/12 10/01/15 Joseph Quintana, Assigned Nephrology 03/29/21 MD Provider [address] [place] [address] [address] [place], [place] [phone] documented as of this encounter
--- OUTSIDE RECORDS SUMMARY | 2022-04-07 11:08 | XMS_ITS | Encounter Summary ---
:1950 Author Organization [place] Address [facility] [place] [address] Care Team Providers Name Role Phone Ingrid Santana RN Unavailable Momo Forbes Primary Care Provider Encounter Details Date Type Department Care Team Description 06/17/2014 External Order Results The Transplant Ce ntjakob Nurse, [facility] 2nd Floor, Clinic 2A [address] [phone] Social History Tobacco Use Types [...] 57 (L) >60 LABDE SCAN (if ml/min/1.7 Lebanese) 3m2 (External) GFR Estimated 47 (L) >60 [...] on filedocumented in this encounter Care Teams Fountain Roller Assembler Relationship Specialty Start Date End Date Momo Forbes PCP - General Family Practice 01/02/14 [facility] [address] [place] [address] Ingrid Santana, RN Registered Nurse Transplant 02/10/12 10/01/15 documented as of this encounter
--- OUTSIDE RECORDS SUMMARY | 2022-04-07 11:08 | XMS_ITS | Encounter Summary ---
:1950 Author Organization [place] Address [facility] [place] [address] Care Team Providers Name Role Phone Ingrid Santana RN Unavailable Momo Forbes Primary Care Provider Reason for Visit Reason Onset Date Comments Refill Request 09/06/2014 [facility] Encounter Details Date Type Department Care Team Description 09/06/2014 Refill The Transplant Deysi Burns, Refill Request ([facility] 2nd Floor, Clinic 2A [facility]) Tommy Wilburn [facility] Building [address] [place] [phone] [place] [address] [place] [address] Social History Tobacco Use Types [...] Fill Date: 02/08/14 Quantity: 100 [facility] [phone] MAKER documented in this encounter Plan of Treatment Not on filedocumented as of this encounter Visit Diagnoses Diagnosis S/P kidney transplant - Primary Kidney replaced by transplant documented in this encounter Care Teams Nuclear Fuels Reclamation Engineer Relationship Specialty Start Date End Date Momo Forbes PCP - General Family Practice 01/02/14 [place] [phone] Ingrid Santana, RN Registered Nurse Transplant 02/10/12 10/01/15 documented as of this encounter
--- OUTSIDE RECORDS SUMMARY | 2022-04-07 11:08 | XMS_ITS | Encounter Summary ---
:1950 Author Organization [place] Address [address] [place] [address]. [place] [address] Care Team Providers Name Role Phone Ingrid Santana RN Unavailable Momo Forbes Primary Care Provider Encounter Details Date Type Department Care Team Description 10/18/2014 External Order Results The Transplant Ce ntjakob Nurse, [facility] 2nd Floor, Clinic 2A [address] [phone] Social History Tobacco Use Types [...] 8:15 AM Results f or this RESULTS CLOUD AUTOMATION TESTER procedure are i n the results section. documented in this encounter Results (ABNORMAL) TXP External Lab Result (10/17/2014 8:15 AM CLOUD AUTOMATION TESTER) Analysis Performed At Patho logist Time Signature [...] 56 (L) >60 LABDE SCAN (if ml/min/1.7 Polish) 3m2 (External) GFR Estimated 46 (L) >60 [...] / / Volume Laterality 10/17/2014 8:15 AM CLOUD AUTOMATION TESTER Narrative JESSICA PFT - 10/18/2014 8:50 AM CLOUD AUTOMATION TESTER Verified by Maribel Plunkett on 10/18/19 15. Patient Reported LABORATORY Performing Organization Address City/State/ZIP Code Phon e Number [facility] LABDE SCAN documented in this encounter Visit Diagnoses Not on filedocumented in this encounter Care Teams Practice Office Associate Relationship Specialty Start Date End Date Momo Forbes PCP - General Family Practice 01/02/14 [facility] [address] [place] [address] Ingrid Santana, RN Registered Nurse Transplant 02/10/12 10/01/15 documented as of this encounter
--- OUTSIDE RECORDS SUMMARY | 2022-04-07 11:08 | XMS_ITS | Encounter Summary ---
:1950 Author Organization [place] Address [address] [place] [address] Care Team Providers Name Role Phone Ingrid Santana RN Unavailable Momo Forbes Primary Care Provider Encounter Details Date Type Department Care Team Description 10/20/[address] [facility], Joseph [facility], [facility] jm [place] [address] [phone] [place] [address] 370 [place] [address] (Wo rk) Social History [...] Tacrolimus Last 2030, [facility] Dose 11/04/14 [facility] Tacrolimus 7.7 5.0 - [facility] 15.0 ug/L [facility] Comment: Tacrolimus Reference Range Kidney Transplant [...] its perform ance characteristics determined by the [facility], ??Special Chemistry Laboratory. It has [...] Organization Address City/State/ZIP Code Phon e Number [facility] [address] documented in this encounter Visit Diagnoses Not on filedocumented in this encounter Care Teams Mailing Clerk Relationship Specialty Start Date End Date Momo Forbes PCP - General Family Practice 01/02/14 [facility] [address] [place] [address] Ingrid Santana, RN Registered Nurse Transplant 02/10/12 10/01/15 documented as of this encounter
--- OUTSIDE RECORDS SUMMARY | 2022-04-07 11:08 | XMS_ITS | Encounter Summary ---
:1950 Author Organization [place] Address [facility] [place] [address] Care Team Providers Name Role Phone Ingrid Santana RN Unavailable Momo Forbes Primary Care Provider Encounter Details Date Type Department Care Team Description 12/30/2014 Orders Only The Transplant Shiva Arias, RN -donor kidney 2nd Floor, Clinic 2A [facility] transplant recipient Tommy Guillermoteen [address] [facility] (Primary Dx) Building [address] [place] [address] [place] [address] Social History Tobacco Use Types [...] transplant documented in this encounter Care Teams Fixed Wing Aircraft Flight Mechanic Relationship Specialty Start Date End Date Momo Forbes PCP - General Family Practice 01/02/14 [facility] [address] [place] [phone] Ingrid Santana, RN Registered Nurse Transplant 02/10/12 10/01/15 documented as of this encounter
--- OUTSIDE RECORDS SUMMARY | 2022-04-07 11:08 | XMS_ITS | Encounter Summary ---
:1950 Author Organization [place] Address [facility] [place] [address] Care Team Providers Name Role Phone Ingrid Santana RN Unavailable Momo Forbes Primary Care Provider Joseph Quintana MD Unavailable Encounter Details Date Type Department Care Team Description 07/03/2014 External Order Results The Transplant Ce nter Nurse, [facility] 2nd Floor, Clinic 2A [address] [phone] Social History Tobacco Use Types Packs/Day Years [...] 8:27 AM Results f or this RESULTS FARM REPORTER procedure are i n the results section. documented in this encounter Results (ABNORMAL) TXP External Lab Result (07/01/2014 8:27 AM FARM REPORTER) [facility] Time Signature Sodium 140 135 - [...] 57 (L) >60 LABDE SCAN (if ml/min/1.7 Greenlandic) 3m2 (External) GFR Estimated 47 (L) >60 [...] / / Volume Laterality 07/01/2014 8:27 AM FARM REPORTER Narrative JESSICA PFT - 07/03/2014 2:18 PM FARM REPORTER Verified by Xiomara Bello on 07/03/20 14. Patient Reported LABORATORY Performing Organization Address City/State/ZIP Code Phon e Number [facility] LABDE SCAN documented in this encounter Visit Diagnoses Not on filedocumented in this encounter Care Teams Nurse Coordinator Relationship Specialty Start Date End Date Momo Forbes PCP - General Family Practice 01/02/14 [facility] [address] [place] [address] Ingrid Santana, RN Registered Nurse Transplant 02/10/12 10/01/15 Joseph Quintana, Assigned Nephrology 03/29/21 MD Provider [address] [place] [address] 1932 [place], [place] [phone] documented as of this encounter
--- OUTSIDE RECORDS SUMMARY | 2022-04-07 11:08 | XMS_ITS | Encounter Summary ---
:1950 Author Organization [place] Address [address] [place] [address] Care Team Providers Name Role Phone Ingrid Santana RN Unavailable Momo Forbes Primary Care Provider Encounter Details Date Type Department Care Team Description 09/22/2014 Orders Only [facility], [facility], [facility] jm [place] [address] [phone] [place] [address] 937 [place] [address] (Wo rk) Social History Tobacco [...] AM R esults for this MASS SPECTROMETRY CLOUD ENGAGEMENT PARTNER procedure are in the results section. TACROLIMUS BY TANDEM Routine 10/03/2014 8:30 AM R esults for this MASS SPECTROMETRY CLOUD ENGAGEMENT PARTNER procedure are in the results section. documented in this encounter Results Tacrolimus level (10/17/2014 8:15 AM CLOUD ENGAGEMENT PARTNER) [facility] Method Time Signature Tacrolimus Last 2029 [facility] Dose 10/16/14 [facility] Tacrolimus 9.2 5.0 - [facility] Level 15.0 ug/L [facility] Comment: Tacrolimus Reference Range Kidney [...] perform ance characteristics determined by the [facility], ??Special Chemistry Laboratory. It has not been cleared or approved by the FDA . The laboratory is regulated under CLIA as qualified to perform high-complexity testing. This test is used for clinical purposes. It should not be regarded as investigational or for research. Specimen Anatomical Collection Method Collection Time Receive d Time (Source) Location / / Volume Laterality 10/17/2014 8:15 AM 5 CLOUD ENGAGEMENT PARTNER 11:17 AM CLOUD ENGAGEMENT PARTNER Mingo Dangelo MD LAB - BLOOD ORDERABLES Performing Organization Address City/State/ZIP Code Phon e Number [facility] [address] [place] [address] [facility] Tacrolimus level (10/03/2014 8:30 AM CLOUD ENGAGEMENT PARTNER) [facility] gist Method Time Signature Tacrolimus Last 10/02/14 [facility] Dose 2030 [facility] Tacrolimus 7.4 5.0 - [facility] Level 15.0 ug/L [facility] Comment: Tacrolimus Reference Range Kidney [...] perform ance characteristics determined by the [facility], ??Special Chemistry Laboratory. It has not been cleared or approved by the FDA . The laboratory is regulated under CLIA as qualified to perform high-complexity testing. This test is used for clinical purposes. It should not be regarded as investigational or for research. Specimen Anatomical Collection Method Collection Time Receive d Time (Source) Location / / Volume Laterality 10/03/2014 8:30 AM 5 CLOUD ENGAGEMENT PARTNER 11:09 AM CLOUD ENGAGEMENT PARTNER Mingo Dangelo MD LAB - BLOOD ORDERABLES Performing Organization Address City/State/[facility] Code Phon e Number [facility] [address] documented in this encounter Visit Diagnoses Not on filedocumented in this encounter Care Teams Linotype Worker Relationship Specialty Start Date End Date Momo Forbes PCP - General Family Practice 01/02/14 [facility] [address] [place] [address] Ingrid Santana, RN Registered Nurse Transplant 02/10/12 10/01/15 documented as of this encounter
--- OUTSIDE RECORDS SUMMARY | 2022-04-07 11:08 | XMS_ITS | Encounter Summary ---
:1950 Author Organization [place] Address [address] [place] [address]. [place] [address] Care Team Providers Name Role Phone Ingrid Santana RN Unavailable Momo Forbes Primary Care Provider Encounter Details Date Type Department Care Team Description 10/04/2014 External Order Results The Transplant Ce ntjakob Nurse, [facility] 2nd Floor, Clinic 2A [address] [phone] Social History Tobacco Use Types [...] 8:33 AM Results f or this RESULTS CANCER REGISTRY MANAGER procedure are i n the results section. documented in this encounter Results (ABNORMAL) TXP External Lab Result (10/03/2014 8:33 AM CANCER REGISTRY MANAGER) Analysis Performed At Patho logist Time [...] 57 (L) >60 LABDE SCAN (if ml/min/1.7 Bermudian) 3m2 (External) GFR Estimated 47 (L) >60 [...] / / Volume Laterality 10/03/2014 8:33 AM CANCER REGISTRY MANAGER Narrative JESSICA PFT - 10/04/2014 8:51 AM CANCER REGISTRY MANAGER Verified by Josseline Palma on 5. Patient Reported LABORATORY Performing Organization Address City/State/ZIP Code Phon e Number [facility] LABDE SCAN documented in this encounter Visit Diagnoses Not on filedocumented in this encounter Care Teams Energy Manager Relationship Specialty Start Date End Date Momo Forbes PCP - General Family Practice 01/02/14 [facility] [address] [place] [phone] Ingrid Santana, RN Registered Nurse Transplant 02/10/12 10/01/15 documented as of this encounter
--- OUTSIDE RECORDS SUMMARY | 2022-04-07 11:08 | XMS_ITS | Encounter Summary ---
:1950 Author Organization [place] Address [facility] [place] [address] Care Team Providers Name Role Phone Ingrid Santana RN Unavailable Momo Forbes Primary Care Provider Joseph Quintana MD Unavailable Encounter Details Date Type Department Care Team Description 11/07/2014 External Order Results The Transplant Ce nter Nurse, [facility] 2nd Floor, Clinic [address]A [address] [phone] Social History Tobacco Use Types Packs/Day Years [...] (11/05/2014 8:32 AM CDT) Analysis Performed At [facility] Time Signature Sodium 140 135 - 145 [...] Estimated >60 >60 LABDE SCAN (if ml/min/1.7 Kenyan) 3m2 (External) GFR Estimated 51 (L) >60 [...] on filedocumented in this encounter Care Teams Sample Checker Relationship Specialty Start Date End Date Momo Forbes PCP - General Family Practice 01/02/14 [facility] [address] [place] [address] Ingrid Santana, RN Registered Nurse Transplant 02/10/12 10/01/15 Joseph Quintana, Assigned Nephrology 03/29/21 MD Provider [address] [place] [address] 1932 [place], [place] [phone] documented as of this encounter
--- OUTSIDE RECORDS SUMMARY | 2022-04-07 11:09 | XMS_ITS | Encounter Summary ---
:1950 Author Organization [place] Address [address] [place] [address]. [place] [address] Care Team Providers Name Role Phone Ingrid Santana RN Unavailable Momo Forbes Primary Care Provider Encounter Details Date Type Department Care Team Description 04/04/2014 Orders Only Nephrology Shiva Kahn, RN S/P kidney transplant 2nd Floor, [facility] [address] [place] [address] [place] [phone] Social History Tobacco Use Types Packs/Day Years [...] transplant documented in this encounter Care Teams Literature Professor Relationship Specialty Start Date End Date Momo Forbes PCP - General Family Practice 01/02/14 [facility] [address] [place] [address] Ingrid Santana, RN Registered Nurse Transplant 02/10/12 10/01/15 documented as of this encounter
--- OUTSIDE RECORDS SUMMARY | 2022-04-07 11:09 | XMS_ITS | Encounter Summary ---
:1950 Author Organization [place] Address [address] [place] [address]. [place] [address] Care Team Providers Name Role Phone Ingrid Santana RN Unavailable Momo Forbes Primary Care Provider Encounter Details Date Type Department Care Team Description 05/27/2014 Orders Only Nephrology Shiva Kahn RN -donor kidney 2nd Floor, Clinic 2A [facility] transplant recipient Tommy Mimateen [address] [place] [address] [place] [phone] Social History Tobacco Use Types Packs/Day Years [...] transplant documented in this encounter Care Teams Painter Chassis Relationship Specialty Start Date End Date Momo Forbes PCP - General Family Practice 01/02/14 [facility] [address] [place] [address] Ingrid Santana RN Registered Nurse Transplant 02/10/12 10/01/15 documented as of this encounter
--- OUTSIDE RECORDS SUMMARY | 2022-04-07 11:09 | XMS_ITS | Encounter Summary ---
:1950 Author Organization [place] Address [address] [place] [address] Care Team Providers Name Role Phone Ingrid Santana RN Unavailable Momo Forbes Primary Care Provider Encounter Details Date Type Department Care Team Description 04/22/2014 Orders Only [facility], [facility], [facility] jm [place] [address] [phone] [place] [address] 906 [place] [address] (Wo rk) Social History Tobacco [...] (ABNORMAL) Tacrolimus level (05/17/2014 8:17 AM CDT) [facility] Method Time Signature Tacrolimus Last 05/16/2014 [facility] Dose 2000 [facility] Tacrolimus 4.4 (L) 5.0 - [facility] Level 15.0 ug/L GRACE [...] Code Phon e Number [facility] 500 [place], [place] [phone] [place] [address] [facility]) Tacrolimus level (05/15/2014 8:15 AM CDT) [facility] gist Method Time Signature Tacrolimus Last 05/14/14 [facility] Dose 2000 [facility] Tacrolimus 4.6 (L) 5.0 - [facility] Level 15.0 ug/L GRACE [...] Code Phon e Number [facility] 500 [place], [place] [phone] [place] [address] [facility] Tacrolimus level (05/10/2014 8:50 AM CDT) [facility] gist Method Time Signature Tacrolimus Not Provided [facility] Last Dose [facility] Tacrolimus 14.3 5.0 - [facility] Level 15.0 ug/L [facility]ACE [...] Code Phon e Number [facility] 500 [place], [place] [phone] [place] [address] [facility] (ABNORMAL) Tacrolimus level (05/07/2014 8:15 AM CDT) [facility] gist Method Time Signature Tacrolimus Last 05/06/14 [facility] Dose 2000 [facility] Tacrolimus 15.9 (H) 5.0 - [facility] Level 15.0 ug/L GRACE [...] Code Phon e Number [facility] 500 [place], [place] [phone] [place] [address] [facility] Tacrolimus level (05/03/2014 8:13 AM CDT) [facility] gist Method Time Signature Tacrolimus Last [facility] Dose 2000 [facility] Tacrolimus 8.8 5.0 - [facility] Level 15.0 ug/L GRACE [...] Code Phon e Number [facility] 500 [place], [place] [phone] [place] [address] [facility] Tacrolimus level (04/30/2014 8:20 AM CDT) [facility] gist Method Time Signature Tacrolimus Last 04/29/14 [facility] Dose 2000 [facility] Tacrolimus 12.6 5.0 - [facility] Level 15.0 ug/L GRACE [...] Code Phon e Number [facility] 500 [place], [place] [phone] [place] [address] [facility] Tacrolimus level (04/26/2014 8:30 AM CDT) [facility] gist Method Time Signature Tacrolimus Last 04/25/14 [facility] Dose 1900 [facility] Tacrolimus 10.1 5.0 - [facility] Level 15.0 ug/L [facility] [...] LAB - BLOOD ORDERABLES Performing Organization Address City/State/[facility] Phon e Number [facility] 500 [place], [place] [phone] [place] [address] [facility] Tacrolimus level (04/24/2014 9:00 AM CDT) [facility] gist Method Time Signature Tacrolimus Last 04/23/14 [facility] Dose 1900 [facility] Tacrolimus 13.1 5.0 - [facility] Level 15.0 ug/L GRACE [...] Code Phon e Number [facility] 500 [place], [place] [phone] [place] [address] LABS documented in this encounter Visit Diagnoses Not on filedocumented in this encounter Care Teams Pear Picker Relationship Specialty Start Date End Date Momo Forbes PCP - General Family Practice 01/02/14 [facility] 1999 [place] [address] Ingrid Santana, RN Registered Nurse Transplant 02/10/12 10/01/15 documented as of this encounter
--- OUTSIDE RECORDS SUMMARY | 2022-04-07 11:09 | XMS_ITS | Encounter Summary ---
:1950 Author Organization [place] Address [address] [place] [address] Care Team Providers Name Role Phone Ingrid Santana RN Unavailable Momo Forbes Primary Care Provider Encounter Details Date Type Department Care Team Description 05/22/2014 Orders Only [facility], [facility], [facility] jm [place] [address] [phone] [place] [address] 056 [place] [address] (Wo rk) Social History Tobacco [...] Results Tacrolimus level (06/17/2014 8:05 AM CDT) [facility] Method Time Signature Tacrolimus Last 06/16/14 [facility] Dose 2000 [facility] Tacrolimus 6.5 5.0 - [facility] Level 15.0 ug/L [facility] Comment: Tacrolimus Reference Range Kidney [...] e Number [facility] 500 [place], [place] [phone] [place] [address] [facility] Tacrolimus level (06/10/2014 7:52 AM CDT) [facility] gist Method Time Signature Tacrolimus Last 1999 [facility] Dose 06/09/14 [facility] Tacrolimus 7.9 5.0 - [facility] Level 15.0 ug/L [facility] Comment: Tacrolimus Reference Range Kidney [...] e Number [facility] 500 [place], [place] [phone] [place] [address] [facility] Tacrolimus level (06/05/2014 8:28 AM CDT) [facility] gist Method Time Signature Tacrolimus Last 1999 [facility] Dose 06/04/14 [facility] Tacrolimus 7.9 5.0 - [facility] Level 15.0 ug/L [facility] Comment: Tacrolimus Reference Range Kidney [...] LAB - BLOOD ORDERABLES Performing Organization Address City/[facility]/ZIP Code Phon e Number [facility] [address] LABS Tacrolimus level (05/24/2014 8:05 AM CDT) [facility] gist Method Time Signature Tacrolimus 05/23/14 [facility] Last Dose 20:00 [facility] Tacrolimus Test 5.0 - [facility] Level canceled - 15.0 ug/L [facility] entry error Specimen Anatomical Collection Method Collection Time Receive d Time (Source) Location / / Volume Laterality 05/24/2014 8:05 AM 4 2:49 CDT PM CDT Deysi Alicea MD LAB - BLOOD ORDERABLES Performing Organization Address City/State/ZIP Code Phon e Number [facility] [address] LABS Tacrolimus level (05/24/2014 8:05 AM CDT) [facility] gist Method Time Signature Tacrolimus Last 05/23/14 [facility] Dose 20[facility] Tacrolimus 5.8 5.0 - [facility] Level 15.0 ug/L [facility] Comment: Tacrolimus Reference Range Kidney [...] e Number [facility] 500 [place], [place] [phone] [place] [address] LABS documented in this encounter Visit Diagnoses Not on filedocumented in this encounter Care Teams Executive Search Consultant Relationship Specialty Start Date End Date Momo Forbes PCP - General Family Practice 01/02/14 [facility] [address] [place] [address] Ingrid Santana, RN Registered Nurse Transplant 02/10/12 10/01/15 documented as of this encounter
--- OUTSIDE RECORDS SUMMARY | 2022-04-07 11:09 | XMS_ITS | Encounter Summary ---
:1950 Author Organization [place] Address [address]50 [facility] [place] [address] Care Team Providers Name Role Phone Ingrid Santana RN Unavailable Momo Forbes Primary Care Provider Reason for Referral Specialty Diagnoses / Procedures Referred By Contact Refer red To Contact Migel Merchant MD [address] [phone] Referral ID Status Reason Start Date Expiration Date Visits Requ ested Visits Authorized Scheduling Instructions ANTICOAGULATION CLINIC COLLABORATIVE PRA CTICE AGREEMENT The following represents a collaborative practice agreement among the physicians of the Clinic and staff of the Anticoagulat ion Clinic Service ([facility]) Physicians shall: 1. Refer patients requiring anticoagulat ion to a specialty service staffed by personnel of Pharmacy Services and super vised by Clinic physicians. 2. Respond to questions and referrals fr pharmacy staff regarding delinquent or difficult patients. 3. Inform the [facility] staff when a new patie nt [...] of adverse or sub-therapeutic effects including at [facility] the following: Has the patient experienced [...] Department Care Team Description 03/29/2014 Orders Only [facility] Migel Merchant fibrillation (H) (Primary Dx); Anticoagulation Clin ic MD Nathan bed bug exterminator (current) use of anticoagulant s [address] [place], [place] [address] [phone] [place] [address] Social History Tobacco Use Types Packs/Day Years [...] Routine Atrial fibri llation (H) Ordered: 03/29/2014 Currency Machine Operator (Current) Use Of Anticoagulants documented as of this encounter Visit Diagnoses Diagnosis Atrial fibrillation (H) - Primary Atrial fibrillation correction (current) use of anticoagulant s Long-term (current) use of anticoagulant s documented in this encounter Care Teams Inspector General Relationship Specialty Start Date End Date Momo Forbes PCP - General Family Practice 01/02/14 [facility] 1999 [place] [address] Ingrid Santana, RN Registered Nurse Transplant 02/10/12 10/01/15 documented as of this encounter
--- OUTSIDE RECORDS SUMMARY | 2022-04-07 11:09 | XMS_ITS | Encounter Summary ---
:1950 Author Organization [place] Address [facility] [place] [address] Care Team Providers Name Role Phone Ingrid Santana RN Unavailable Momo Forbes Primary Care Provider Encounter Details Date Type Department Care Team Description 05/20/2014 External Order Results The Transplant Ce ntjakob Nurse, [facility] 2nd Floor, Clinic [address] [address] Social History Tobacco Use Types [...] 55 (L) >60 LABDE SCAN (if ml/min/1.7 Jamaican) 3m2 (External) GFR Estimated 46 (L) >60 [...] - 05/20/2014 8:11 AM CDT Verified by Jossleine Palma on 4. Patient Reported LABORATORY Performing Organization Address City/State/ZIP Code Phon e Number [facility] LABDE SC[facility] documented in this encounter Visit Diagnoses Not on filedocumented in this encounter Care Teams Swing Saw Operator Relationship Specialty Start Date End Date Momo Forbes PCP - General Family Practice 01/02/14 [facility] [address] [place] [address] Ingrid Santana, RN Registered Nurse Transplant 02/10/12 10/01/15 documented as of this encounter
--- OUTSIDE RECORDS SUMMARY | 2022-04-07 11:09 | XMS_ITS | Encounter Summary ---
:1950 Author Organization [place] Address [address] [facility] [place] [address] Care Team Providers Name Role Phone Ingrid Santana RN Unavailable Momo Forbes Primary Care Provider Reason for Visit Auth/Cert - Closed Specialty Diagnoses / Procedures Referred By Contact Refer red To Contact Surgery Diagnoses S/P Kidney Transplant Uu Periop Procedures COMBINED CYSTOSCOPY, REMOVE STENT(S) 500 [place] [address] Phone: Fax: Referral ID Status Reason Start Date Expiration Date Visits Requ ested Visits Authorized [id number] Closed 1 1 Encounter Details Date Type Department Care Team Description 04/01/2014 Anesthesia Event [facility] Clari Torres MD PeriOp Services [facility] ANESTHESIA 500 [place] [address] [place] [address] [place] [address] (Wo rk) Anesthesia Record Procedure Summary Procedure [...] benefits and alternatives discussed with: patient or practice representative. I agree with the plan written [...] Intra-op documented in this encounter Care Teams Head Sugar Reprocess Operator Relationship Specialty Start Date End Date Momo Forbes PCP - General Family Practice 01/02/14 [place] [address] Ingrid Santana, RN Registered Nurse Transplant 02/10/12 10/01/15 documented as of this encounter
--- OUTSIDE RECORDS SUMMARY | 2022-04-07 11:09 | XMS_ITS | Encounter Summary ---
:1950 Author Organization [place] Address [facility] [place] [address] Care Team Providers Name Role Phone Ingrid Santana RN Unavailable Moom Forbes Primary Care Provider Reason for Visit Reason Comments RECHECK s/p kidney tx Auth/Cert - Closed Specialty Diagnoses / Procedures Referred By Contact Refer red To Contact Surgery Diagnoses S/P Kidney Transplant Uu Periop Procedures COMBINED CYSTOSCOPY, REMOVE STENT(S) 500 [place] [address] Phone: Fax: Referral ID Status Reason Start Date Expiration Date Visits Requ ested Visits Authorized [id number] Closed 1 1 Encounter Details Date Type Department Care Team Description 04/01/2014 Office Visit Nephrology Deysi Alicea Immunosuppressed status (H) (Primary Dx); 2nd Floor, Clinic MD Aline High risk medication use; 2A [facility] Kidney replaced by anai tTashi DOMÍNGUEZ S/P kidney transplant [place] [address] [place] [address] [place], [place] (Work) [address] [phone] Social History Tobacco Use Types Packs/Day Years [...] -no follow up, I will ask his banquet coordinator to obtain results from his local [...] at home regularly; BP checked by me [id number]; HE was previously on Metoprolol 12.5 mg [...] Years of Education: 14 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
--- OUTSIDE RECORDS SUMMARY | 2022-04-07 11:09 | XMS_ITS | Encounter Summary ---
:1950 Author Organization [place] Address [address] [place] [address]. [place] [address] Care Team Providers Name Role Phone Ingrid Santana RN Unavailable Momo Forbes Primary Care Provider Encounter Details Date Type Department Care Team Description 05/02/2014 Orders Only Nephrology Shiva Kahn RN -donor kidney 2nd Floor, Clinic 2A [facility] transplant recipient Tommy [place] [address] [place] [address] [place] [phone] Social History Tobacco Use Types Packs/Day Years [...] transplant documented in this encounter Care Teams Airframe Design Engineer Relationship Specialty Start Date End Date Momo Forbes PCP - General Family Practice 01/02/14 [facility] 1999 [place] [address] Ingrid Santana RN Registered Nurse Transplant 02/10/12 10/01/15 documented as of this encounter
--- OUTSIDE RECORDS SUMMARY | 2022-04-07 11:09 | XMS_ITS | Encounter Summary ---
:1950 Author Organization [place] Address [address] [place] [address]. [place] [address] Care Team Providers Name Role Phone Ingrid Santana RN Unavailable Momo Forbes Primary Care Provider Reason for Visit Reason Onset Date Comments Refill Request 04/26/2014 Encounter Details Date Type Department Care Team Description 04/26/2014 Refill Nephrology Shiva Kahn RN Refill Request 2nd Floor, Clinic 2A [facility] [place] [phone] [place] [address] [place] [phone] Social History Tobacco Use Types Packs/Day [...] transplant documented in this encounter Care Teams Wax Specialist Relationship Specialty Start Date End Date Momo Forbes PCP - General Family Practice 01/02/14 [facility] 1999 [place] [address] Ingrid Santana, RN Registered Nurse Transplant 02/10/12 10/01/15 documented as of this encounter
--- OUTSIDE RECORDS SUMMARY | 2022-04-07 11:09 | XMS_ITS | Encounter Summary ---
:1950 Author Organization [place] Address [facility] [place] [address] Care Team Providers Name Role Phone Ingrid Santana RN Unavailable Momo Forbes Primary Care Provider Joseph Quintana MD Unavailable Encounter Details Date Type Department Care Team Description 06/08/2014 External Order Results The Transplant Ce nter Nurse, [facility] 2nd Floor, Clinic [address]A [address] [address] Social History Tobacco Use Types [...] External Lab Result (06/05/2014 8:30 AM CDT) [facility] Method Time Signature Sodium (External) 138 135 [...] filedocumented in this encounter Care Teams Bill Checker Relationship Specialty Start Date End Date Momo Forbes PCP - General Family Practice 01/02/14 [facility] [address] [place] [address] Ingrid Santana, RN Registered Nurse Transplant 02/10/12 10/01/15 Joseph Quintana, Assigned Nephrology 03/29/21 MD Provider [address] [place] [address] 1932 [place] [address] documented as of this encounter
--- OUTSIDE RECORDS SUMMARY | 2022-04-07 11:09 | XMS_ITS | Encounter Summary ---
:1950 Author Organization [place] Address [address] [place] [address]. [place] [address] Care Team Providers Name Role Phone Ingrid Santana RN Unavailable Momo Forbes Primary Care Provider Reason for Visit Reason Onset Date Comments Refill Request 04/05/2014 Tamy Cabrera Encounter Details Date Type Department Care Team Description 04/05/2014 Refill The Transplant Migel Martinez, Refill Request 2nd Floor, Clinic 2A [facility] [address] [place] [address] antoprazole) Building [facility] [address] [place] [address] 88 [place] [phone] Social History Tobacco Use Types Packs/Day Years [...] Miscellaneous Notes Telephone Encounter - Aubrey Jackson - 04/05/2014 12:07 PM CDT Drug Name: Pantoprazole Last Fill Date: 03/06/14 Quantity: 30 Drug: Jantoven Last Fill: 03/14/14 Qty: 30 Michael Jackson [facility] [phone] documented in this encounter Plan of Treatment Not on filedocumented as of this encounter Visit Diagnoses Diagnosis S/P kidney transplant Kidney replaced by transplant Atrial fibrillation (H) Atrial fibrillation documented in this encounter Care Teams Artificial Limb Fitter Relationship Specialty Start Date End Date Momo Forbes PCP - General Family Practice 01/02/14 [facility] [address] [place] [address] Ingrid Santana, RN Registered Nurse Transplant 02/10/12 10/01/15 documented as of this encounter
--- OUTSIDE RECORDS SUMMARY | 2022-04-07 11:09 | XMS_ITS | Encounter Summary ---
:1950 Author Organization [place] Address [facility] [address] Care Team Providers Name Role Phone Ingrid Santana RN Unavailable Momo Forbes Primary Care Provider Encounter Details Date Type Department Care Team Description 06/07/2014 External Order Results The Transplant Ce ntjakob Nurse, [facility] 2nd Floor, Clinic 2A [address] [phone] Social History Tobacco Use Types [...] External Lab Result (06/05/2014 8:30 AM CDT) [facility] Method Time Signature Sodium (External) 138 [...] on filedocumented in this encounter Care Teams Whittling Room Operator Relationship Specialty Start Date End Date Momo Forbes PCP - General Family Practice 01/02/14 [facility] [address] [place] [phone] Ingrid Santana, RN Registered Nurse Transplant 02/10/12 10/01/15 documented as of this encounter
--- OUTSIDE RECORDS SUMMARY | 2022-04-07 11:09 | XMS_ITS | Encounter Summary ---
:1950 Author Organization [place] Address [address] [place] [address]. [place] [address] Care Team Providers Name Role Phone Ingrid Santana RN Unavailable Momo Forbes Primary Care Provider Encounter Details Date Type Department Care Team Description 05/10/2014 Orders Only Nephrology Shiva Kahn RN -donor kidney 2nd Floor, Clinic 2A [facility] transplant recipient Tommy Mimateen [address] [place] [address] (Primary Dx) Building [address] [place] [phone] Social History Tobacco Use Types Packs/Day Years [...] transplant documented in this encounter Care Teams Trailer Assembler Relationship Specialty Start Date End Date Momo Forbes PCP - General Family Practice 01/02/14 [facility] [address] [place] [address] Ingrid Santana, RN Registered Nurse Transplant 02/10/12 10/01/15 documented as of this encounter
--- OUTSIDE RECORDS SUMMARY | 2022-04-07 11:09 | XMS_ITS | Encounter Summary ---
:1950 Author Organization [place] Address [facility] [place] [address] Care Team Providers Name Role Phone Ingrid Santana RN Unavailable Momo Forbes Primary Care Provider Joseph Quintana MD Unavailable Encounter Details Date Type Department Care Team Description 05/16/2014 External Order Results The Transplant Ce nter Nurse, [facility] 2nd Floor, Clinic [address]A [address] [phone] Social History Tobacco Use Types Packs/Day Years [...] (05/15/2014 8:16 AM CDT) Analysis Performed At [facility] Time Signature Sodium 141 135 - 145 [...] Estimated >60 >60 LABDE SCAN (if ml/min/1.7 Lebanese) 3m2 (External) GFR Estimated 52 (L) >60 [...] filedocumented in this encounter Care Teams Operation Specialist Relationship Specialty Start Date End Date Momo Forbes PCP - General Family Practice 01/02/14 [facility] 1999 [place] [address] Ingrid Santana, RN Registered Nurse Transplant 02/10/12 10/01/15 Joseph Quintana, Assigned Nephrology 03/29/21 MD Provider [address] [place] [address] 353 [facility] 1932 [place] [address] documented as of this encounter
--- OUTSIDE RECORDS SUMMARY | 2022-04-07 11:09 | XMS_ITS | Encounter Summary ---
:1950 Author Organization [place] Address [address] [place] [address] Care Team Providers Name Role Phone Ingrid Santana RN Unavailable Momo Forbes Primary Care Provider Reason for Visit Auth/Cert - Closed Specialty Diagnoses / Procedures Referred By Contact Refer red To Contact Surgery Diagnoses S/P Kidney Transplant Uu Periop Procedures COMBINED CYSTOSCOPY, REMOVE STENT(S) 500 [place] [address] Phone: Fax: Referral ID Status Reason Start Date Expiration Date Visits Requ ested Visits Authorized [id number] Closed 1 1 Encounter Details Date Type Department Care Team Description 04/01/2014 Hospital Encounter [facility] Migel Merchant, Same Day Surgery [place] [employer] [facility] 420 [facility] 500 [facility] 195 [place] [address] [place] [address] (Wo rk) Social History Tobacco Use Types [...] 04/01/2014 10:15 AM CDT [facility], [place] Same-Day Surgery Adult Discharge Orders & Instructions [...] To contact a doctor, call or: ??? [phone] and ask for the resident general manager road production for (answered 24 hours a day) ??? Emergency Department: [facility]: [phone] (TTY for hearing impaired: [phone]) documented in this encounter Medications at Time [...] Component Value Ref Test Analysis Performed At [facility] Range Method Time Signature Specimen Unspecified [facility] Urine CAMPUS LABS Special Specimen [facility] Requests received in MICROBIOLOGY preservative Culture Micro No growth [facility] MICROBIOLOGY Micro Report FINAL [facility] Status 04/02/2014 MICROBIOLOGY Specimen Anatomical Collection Method Collection Time Receive d Time (Source) Location / / Volume Laterality 04/01/2014 9:00 AM 4 9:18 CDT AM CDT Migel Merchant MD LAB - MICRO GENERAL ORDERABL ES Performing Organization Address City/State/ZIP Code Phon e Number [address] [address] [facility] UNIVERSITY CAMPUS LABS [facility] MICROBIOLOGY (ABNORMAL) UA with Microscopic (04/01/2014 9:00 AM CDT) Component Value Ref Test Analysis Performed At Patholo gist Range Method Time Signature Color Urine Yellow [facility] UNIVERSITY CAMPUS LABS Appearance Urine Clear [facility] UNIVERSITY CAMPUS LABS Glucose Urine 30 (A) NEG [facility] mg/dL UNIVERSITY CAMPUS LABS Bilirubin Urine Negative NEG [facility] UNIVERSITY CAMPUS LABS Ketones Urine Negative NEG [facility] mg/dL UNIVERSITY CAMPUS LABS Specific [place] 1.017 1.003 - [facility] Urine 1.035 UNIVERSITY CAMPUS LABS Blood Urine Moderate (A) NEG [facility] UNIVERSITY CAMPUS LABS pH Urine 6.0 5.0 - [facility] 7.0 pH UNIVERSITY [place] LABS Protein Albumin 10 (A) NEG [facility] Urine mg/dL UNIVERSITY CAMPUS LABS Urobilinogen Normal 0.0 - [facility] mg/dL 2.0 UNIVERSITY mg/dL CAMPUS LABS Nitrite Urine Negative NEG [facility] UNIVERSITY CAMPUS LABS Leukocyte Negative NEG [facility] Esterase Urine UNIVERSITY [place] LABS Source Unspecified [facility] Urine UNIVERSITY CAMPUS LABS WBC Urine 2 0 - 2 [facility] /HPF [facility] LABS RBC Urine 30 (H) 0 - [...] Organization Address City/State/ZIP Code Phon e Number [address] LABS (ABNORMAL) INR (04/01/2014 8:36 AM CDT) P athologist Signature INR 1.64 (H) 0.86 - 1.14 [facility] LABS Specimen Anatomical Collection Method Collection Time Receive d Time (Source) Location / / Volume Laterality Blood specimen 04/01/2014 8:36 AM 014 8:41 (specimen) CDT AM CDT Momo Jimenez MD LAB - BLOOD ORDERABLES Performing Organization Address City/State/ZIP Code Phon e Number [address] LABS EKG 12-lead, tracing only (04/01/2014 8:28 AM CDT) [facility] gist Method Time Signature Interpretation ECG [...] athologist Signature Potassium 4.1 3.4 - 5.3 [facility] mmol/L CAMPUS LABS Specimen Anatomical Collection Method Collection Time Receive d Time (Source) Location / / Volume Laterality Blood specimen 04/01/2014 8:11 AM 014 8:27 (specimen) CDT AM CDT Momo Jimenez MD LAB - BLOOD ORDERABLES Performing Organization Address City/[facility]/ZIP Code Phon e Number [facility] [address] LABS (ABNORMAL) Hemoglobin (04/01/2014 8:11 AM CDT) athologist Signature Hemoglobin 10.2 (L) 13.3 - [facility] 17.7 g/dL CAMPUS LABS Specimen Anatomical Collection Method Collection Time Receive d Time (Source) Location / / Volume Laterality Blood specimen 04/01/2014 8:11 AM 014 8:27 (specimen) CDT AM CDT Momo Jimenez MD LAB - BLOOD ORDERABLES Performing Organization Address City/[facility]/ZIP Code Phon e Number [facility] [address] LABS (ABNORMAL) Glucose by meter (04/01/2014 8:02 AM CDT) athologist Signature Glucose 158 (H) 60 - 99 POINT OF CARE mg/dL TEST, GLUCOSE Specimen Anatomical Collection Method Collection Time Receive d Time (Source) Location / / Volume Laterality 04/01/2014 8:02 AM 4 8:05 CDT AM CDT Migel Merchant MD LAB - BEAKER POCT Performing Organization Address City/[facility]/ZIP Code Phon e Number [facility] POINT OF CARE TEST, GLUCOSE POINT OF CARE TEST, GLUCOSE documented in this encounter Visit Diagnoses Not on filedocumented in this encounter Active and Recently Administered Medications Times are shown in CDT. Scheduled Medication Order 03/30/2014 03/31/2014 04/01/2014 levofloxacin (LEVAQUIN) IVPB 500 mg (COMPLETED) 0850 (Given - Provider: Addis Brannon APRN PLANT CYTOLOGIST - Comment: Asked by Fellow to give [...] Intra-procedure documented in this encounter Care Teams Application Systems Architect Relationship Specialty Start Date End Date Momo Forbes PCP - General Family Practice 01/02/14 [facility] [address] [place] [address] Ingrid Santana, RN Registered Nurse Transplant 02/10/12 10/01/15 documented as of this encounter
--- OUTSIDE RECORDS SUMMARY | 2022-04-07 11:09 | XMS_ITS | Encounter Summary ---
:1950 Author Organization [place] Address [facility] [place] [address] Care Team Providers Name Role Phone Ingrid Santana RN Unavailable Momo Forbes Primary Care Provider Reason for Visit Reason Onset Date Comments Pre Visit Planning - Done 05/13/2014 6 week f/u pos t op afib. medication changes last visit. Encounter Details Date Type Department Care Team Description 05/13/2014 PRE VISIT [facility] [address] Pre Visit Planning - Physicians Orestes Hernandez MD Done (6 week f/u post [facility] op afib. medication Building [place] changes last visit. ) 4th Floor, Clinic 4B [phone] [place] [address] (Wo rk) [phone] [phone] Social History Tobacco Use Types Packs/Day Years [...] on filedocumented in this encounter Care Teams Knockout Worker Relationship Specialty Start Date End Date Momo Forbes PCP - General Family Practice 01/02/14 [facility] [address] [place] [address] Ingrid Santana RN Registered Nurse Transplant 02/10/12 10/01/15 documented as of this encounter
--- OUTSIDE RECORDS SUMMARY | 2022-04-07 11:09 | XMS_ITS | Encounter Summary ---
:1950 Author Organization [place] Address [address] [facility] [place] [address] Care Team Providers Name Role Phone Ingrid Santana RN Unavailable Momo Forbes Primary Care Provider Reason for Visit Reason Onset Date Comments Anticoagulation 03/29/2014 Encounter Details Date Type Department Care Team Description 03/29/2014 Telephone [facility] Mary Sheffield RN Anticoagulation Anticoagulation Clin ic [address] [place], [place] [phone] Social History Tobacco Use [...] \this patient. He has INRs done at [facility] He takes Warfarin 5 mg [...] on filedocumented in this encounter Care Teams Steel Pan Form Placing Supervisor Relationship Specialty Start Date End Date Momo Forbes PCP - General Family Practice 01/02/14 [place] [address] Ingrid Santana, RN Registered Nurse Transplant 02/10/12 10/01/15 documented as of this encounter
--- OUTSIDE RECORDS SUMMARY | 2022-04-07 11:09 | XMS_ITS | Encounter Summary ---
:1950 Author Organization [place] Address [address] [place] [address] Care Team Providers Name Role Phone Ingrid Santana RN Unavailable Momo Forbes Primary Care Provider Reason for Visit Reason Onset Date Comments Anticoagulation 04/01/2014 Encounter Details Date Type Department Care Team Description 04/01/2014 Telephone [facility] Joseph Levine , Anticoagulation Anticoagulation Clin ic [facility] [address] [place], [place] [phone] [facility] [phone] [place] [address] [address] [place] [address] (Wo rk) Social History Tobacco [...] Telephone Encounter - Joseph Levine, [facility] - 04/01/2014 5:22 PM CDT INR [...] on filedocumented in this encounter Care Teams Tassel Clipper Relationship Specialty Start Date End Date Momo Forbes PCP - General Family Practice 01/02/14 [place] [phone] Ingrid Santana, RN Registered Nurse Transplant 02/10/12 10/01/15 documented as of this encounter
--- OUTSIDE RECORDS SUMMARY | 2022-04-07 11:09 | XMS_ITS | Encounter Summary ---
:1950 Author Organization [place] Address [facility] [place] [address] Care Team Providers Name Role Phone Ingrid Santana RN Unavailable Momo Forbes Primary Care Provider Reason for Visit Reason Comments RECHECK 3 month Tx follow Up Encounter Details Date Type Department Care Team Description 05/13/2014 Office Visit Nephrology Deysi Alicea, DM (diabetes mellitus), type 2 (H) (Primary Dx); 2nd Floor, Clinic 2A S/P kidney transplant Tommy Wilburn [address] [phone] (Wo rk) [phone] [phone] Social History Tobacco Use Types Packs/Day Years [...] discharged on Cumadin; Cumadin was stopped by repair technician during the follow up visit, as he [...] Years of Education: 14 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
--- OUTSIDE RECORDS SUMMARY | 2022-04-07 11:09 | XMS_ITS | Encounter Summary ---
:1950 Author Organization [place] Address [facility] [place] [address] Care Team Providers Name Role Phone Ingrid Santana RN Unavailable Momo Forbes Primary Care Provider Joseph Quintana MD Unavailable Encounter Details Date Type Department Care Team Description 05/27/2014 External Order Results The Transplant Ce nter Nurse, [facility] 2nd Floor, Clinic [address] [phone] Social History Tobacco Use Types Packs/Day Years [...] (05/24/2014 8:11 AM CDT) Analysis Performed At [facility] Time Signature Sodium 142 135 - [...] Estimated >60 >60 LABDE SCAN (if ml/min/1.7 [place]) 3m2 (External) GFR Estimated 52 (L) >60 [...] in this encounter Care Teams Public Health Sanitarian Relationship Specialty Start Date End Date Momo Forbes PCP - General Family Practice 01/02/14 [facility] [address] [place] [address] Ingrid Santana, RN Registered Nurse Transplant 02/10/12 10/01/15 Joseph Quintana, Assigned Nephrology 03/29/21 MD Provider [address] [place] [address] 353 [facility] [address] [place] [address] documented as of this encounter
--- OUTSIDE RECORDS SUMMARY | 2022-04-07 11:09 | XMS_ITS | Encounter Summary ---
:1950 Author Organization [place] Address [facility] [place] [address] Care Team Providers Name Role Phone Ingrid Santana RN Unavailable Momo oFrbes Primary Care Provider Reason for Visit Reason Onset Date Comments Patient Reminder 05/09/2014 Encounter Details Date Type Department Care Team Description 05/09/2014 Telephone Nephrology Yesenia Clements CMA Patient Reminder 2nd Floor, Clinic [address] [place] [phone] Social History Tobacco Use Types [...] on filedocumented in this encounter Care Teams Parking Station Attendant Relationship Specialty Start Date End Date Momo Forbes PCP - General Family Practice 01/02/14 [facility] [address] [place] [address] Ingrid Santana, RN Registered Nurse Transplant 02/10/12 10/01/15 documented as of this encounter
--- OUTSIDE RECORDS SUMMARY | 2022-04-07 11:09 | XMS_ITS | Encounter Summary ---
:1950 Author Organization [place] Address [address] [place] [address]. [place] [address] Care Team Providers Name Role Phone Ingrid Santana RN Unavailable Momo Forbes Primary Care Provider Encounter Details Date Type Department Care Team Description 05/17/2014 Orders Only Nephrology Shiva Kahn RN -donor kidney 2nd Floor, Clinic 2A [facility] transplant recipient Tommy Mimateen [address] [place] [address] (Primary Dx) Building [address] [place] [phone] Social History Tobacco Use Types Packs/Day Years [...] transplant documented in this encounter Care Teams Equal Opportunity Specialist Relationship Specialty Start Date End Date Momo Forbes PCP - General Family Practice 01/02/14 [facility] [address] [place] [address] Ingrid Santana, RN Registered Nurse Transplant 02/10/12 10/01/15 documented as of this encounter
--- OUTSIDE RECORDS SUMMARY | 2022-04-07 11:09 | XMS_ITS | Encounter Summary ---
:1950 Author Organization [place] Address [address] [place] [address] Care Team Providers Name Role Phone Ingrid Santana RN Unavailable Momo Forbes Primary Care Provider Reason for Visit Auth/Cert - Closed Specialty Diagnoses / Procedures Referred By Contact Refer red To Contact Surgery Diagnoses S/P Kidney Transplant Uu Periop Procedures COMBINED CYSTOSCOPY, REMOVE STENT(S) 500 [place] [address] Phone: Fax: Referral ID Status Reason Start Date Expiration Date Visits Requ ested Visits Authorized [id number] Closed 1 1 Encounter Details Date Type Department Care Team Description 04/01/2014 Surgery [facility] Migel Merchant Romoval of Right Double PeriOp Services J Stent 500 [facility] 420 [place] [address] [place] [address] [place] [address] (Wo rk) Surgery Details Date/Time Status Location [...] Scott RN - 04/01/2014 10:15 AM CDT [facility], [place] Same-Day Surgery Adult Discharge Orders & Instructions [...] To contact a doctor, call or: ??? [phone] and ask for the resident health information systems technician for (answered 24 hours a day) ??? Emergency Department: [facility]: [phone] (TTY for hearing impaired: [phone]) documented in this encounter Medications at Time [...] AM CDT Migel Merchant MD LAB - [facility] POCT Performing Organization Address City/State/ZIP Code Phon e Number [facility] POINT OF CARE TEST, GLUCOSE POINT OF CARE TEST, GLUCOSE Urine culture (04/01/2014 9:00 AM CDT) Component Value Ref Test Analysis Performed At [facility] gist Range Method Time Signature Specimen Unspecified [facility] UNIVERSITY Description Urine CAMPUS LABS Special Specimen [facility] Requests received in MICROBIOLOGY preservative Culture Micro No growth [facility] MICROBIOLOGY Micro Report FINAL [facility] Status 04/02/2014 MICROBIOLOGY Specimen Anatomical Collection Method Collection Time Receive d Time (Source) Location / / Volume Laterality 04/01/2014 9:00 AM 4 9:18 CDT AM CDT Migel Merchant MD LAB - MICRO GENERAL ORDERABL ES Performing Organization Address City/State/ZIP Code Phon e Number [facility] 500 [place] [address] [facility] UNIVERSITY [facility] LABS [facility] MICROBIOLOGY (ABNORMAL) UA with Microscopic (04/01/2014 9:00 AM CDT) Component Value Ref Test Analysis Performed At Patholo gist Range Method Time Signature Color Urine Yellow [facility] UNIVERSITY CAMPUS LABS Appearance Urine Clear [facility] UNIVERSITY CAMPUS LABS Glucose Urine 30 (A) NEG [facility] mg/dL UNIVERSITY CAMPUS LABS Bilirubin Urine Negative NEG [facility] UNIVERSITY CAMPUS LABS Ketones Urine Negative NEG [facility] mg/dL UNIVERSITY CAMPUS LABS Specific [place] 1.017 1.003 - [facility] Urine 1.035 UNIVERSITY [...] e Number [facility] 500 [place] [address] [facility] UNIVERSITY CAMPUS LABS (ABNORMAL) INR (04/01/2014 8:36 AM CDT) P athologist Signature INR 1.64 (H) 0.86 - 1.14 [facility] UNIVERSITY CAMPUS LABS Specimen Anatomical Collection Method Collection Time Receive d Time (Source) Location / / Volume Laterality Blood specimen 04/01/2014 8:36 AM 014 8:41 (specimen) CDT AM CDT Momo Jimenez MD LAB - BLOOD ORDERABLES Performing Organization Address City/[facility]/ZIP Code Phon e Number [facility] [address] LABS EKG 12-lead, tracing only (04/01/2014 8:28 AM CDT) [facility] gist Method Time Signature Interpretation ECG Click View RADIOLOGY Image link RESULTS to view waveform and result Specimen (Source) Anatomical Collection Method Collection Time Re ceived Time Location / / Volume Laterality 04/01/2014 8:28 AM CDT Momo Jimenez MD ECG ORDERABLES Performing Organization Address City/[facility]/ZIP Code Phon e Number RADIOLOGY RESULTS Potassium (04/01/2014 8:11 AM CDT) athologist Signature Potassium 4.1 3.4 - 5.3 [facility] mmol/L CAMPUS LABS Specimen Anatomical Collection Method Collection Time Receive d Time (Source) Location / / Volume Laterality Blood specimen 04/01/2014 8:11 AM 014 8:27 (specimen) CDT AM CDT Momo Jimenez MD LAB - BLOOD ORDERABLES Performing Organization Address City/[facility]/ZIP Code Phon e Number [facility] [address] LABS (ABNORMAL) Hemoglobin (04/01/2014 8:11 AM CDT) athologist Signature Hemoglobin 10.2 (L) 13.3 - [facility] 17.7 g/dL [facility] LABS Specimen Anatomical Collection Method Collection Time Receive d Time (Source) Location / / Volume Laterality Blood specimen 04/01/2014 8:11 AM 014 8:27 (specimen) CDT AM CDT Momo Jimenez MD LAB - BLOOD ORDERABLES Performing Organization Address City/[facility]/ZIP Code Phon e Number [facility] [address] LABS (ABNORMAL) Glucose by meter (04/01/2014 8:02 AM CDT) athologist Signature Glucose 158 (H) 60 - 99 POINT OF CARE mg/dL TEST, GLUCOSE Specimen Anatomical Collection Method Collection Time Receive d Time (Source) Location / / Volume Laterality 04/01/2014 8:02 AM 4 8:05 CDT AM CDT Migel LARES - [facility] POCT Performing Organization Address City/State/ZIP Code [...] 0850 (Given - Provider: Addis Brannon APRN DIRECTOR DATA ANALYTICS - Comment: Asked by Fellow to give [...] Intra-procedure documented in this encounter Care Teams Secondary Connector Armature Relationship Specialty Start Date End Date Momo Forbes PCP - General Family Practice 01/02/14 [facility] [address] [place] [phone] Ingrid Santana, RN Registered Nurse Transplant 02/10/12 10/01/15 documented as of this encounter
--- OUTSIDE RECORDS SUMMARY | 2022-04-07 11:09 | XMS_ITS | Encounter Summary ---
:1950 Author Organization [place] Address [facility] [place] [address] Care Team Providers Name Role Phone Ingrid Santana RN Unavailable Momo Forbes Primary Care Provider Reason for Visit Reason Onset Date Comments Pre Visit Planning - Done 04/08/2014 2 m f/u Post o p AFIB s/p DCCV. on warfarin 4 weeks Encounter Details Date Type Department Care Team Description 04/08/2014 PRE VISIT [facility] [address] Pre Visit Planning - Physicians Orestes Hernandez MD Done (2 m f/u Post op [facility] AF IB s/p DCCV. on [facility] warfarin 4 weeks) 4th Floor, Clinic 4B [phone] [place] [address] (Wo rk) [address] [phone] Social History Tobacco Use Types Packs/Day Years [...] on filedocumented in this encounter Care Teams Drink Waiter Relationship Specialty Start Date End Date Momo Forbes PCP - General Family Practice 01/02/14 [facility] [address] [place] [phone] Ingrid Santana, RN Registered Nurse Transplant 02/10/12 10/01/15 documented as of this encounter
--- OUTSIDE RECORDS SUMMARY | 2022-04-07 11:09 | XMS_ITS | Encounter Summary ---
:1950 Author Organization [place] Address [facility] [place] [address] Care Team Providers Name Role Phone Ingrid Santana RN Unavailable Momo Forbes Primary Care Provider Reason for Visit Reason Comments Heart Problem 6 week F/U Encounter Details Date Type Department Care Team Description 05/14/2014 [facility] Visit [facility] Unspecified es sential [place] [facility] Kei Hernandez, shanon carey (Primary Heart MD Dx) Tommy Wilburn [facility] Building [place] 4th Floor, Clinic [address]B [address] [address] [phone] [place], [place] (Work) [address] [phone] Social History Tobacco Use Types Packs/Day Years [...] questions or concerns. 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
--- OUTSIDE RECORDS SUMMARY | 2022-04-07 11:09 | XMS_ITS | Encounter Summary ---
:1950 Author Organization [place] Address [facility] [place] [address] Care Team Providers Name Role Phone Ingrid Santana RN Unavailable Momo Forbes Primary Care Provider Reason for Visit Reason Comments Heart Problem 2 m f/u Post op AFIB s/p DCC V. on warfarin 4 weeks Encounter Details Date Type Department Care Team Description 04/09/2014 [facility] Atrial fibrill ation (H) (Primary Dx); [place] [facility] Enrique Maria pecified essential hypertension; Heart Other and unspecified hyperlipidemia; [facility] DM (diabetes mellitus), type 2 (H) Building [place] 4th Floor, Clinic 4B [address] [phone] [place], [place] (Work) [phone] [phone] Social History Tobacco Use Types Packs/Day Years [...] questions or concerns. 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 Specific [place] Urine 04/01/2014 1.017 1.003 - 1.035 Final [...] NEG Ketones Urine Negative NEG mg/dL Specific [place] Urine 1.017 1.003 - 1.035 Blood Urine [...] uncontrolled documented in this encounter Care Teams Astronomy Department Chair Relationship Specialty Start Date End Date Momo Forbes PCP - General Family Practice 01/02/14 [facility] [address] [place] [address] Ingrid Santana, RN Registered Nurse Transplant 02/10/12 10/01/15 documented as of this encounter
--- OUTSIDE RECORDS SUMMARY | 2022-04-07 11:10 | XMS_ITS | Encounter Summary ---
:1950 Author Organization [place] Address [address] [place] [address]. [place] [address] Care Team Providers Name Role Phone Ingrid Santana RN Unavailable Momo Forbes Primary Care Provider Encounter Details Date Type Department Care Team Description 03/19/2014 Orders Only Nephrology Shiva Kahn RN -donor kidney 2nd Floor, Clinic 2A [facility] transplant recipient Tommy Josephensteen [address] [place] [address] [place] [phone] Social History Tobacco Use Types Packs/Day Years [...] transplant documented in this encounter Care Teams Portfolio Management Marketing Relationship Specialty Start Date End Date Momo Forbes PCP - General Family Practice 01/02/14 [facility] 1999 [place] [address] Ingrid Santana RN Registered Nurse Transplant 02/10/12 10/01/15 documented as of this encounter
--- OUTSIDE RECORDS SUMMARY | 2022-04-07 11:10 | XMS_ITS | Encounter Summary ---
:1950 Author Organization [place] Address [address] [place] [address]. [place] [address] Care Team Providers Name Role Phone Ingrid Santana RN Unavailable Momo Forbes Primary Care Provider Encounter Details Date Type Department Care Team Description 03/14/2014 Orders Only Nephrology Shiva Kahn RN -donor kidney 2nd Floor, Clinic 2A [facility] transplant recipient Tommy Josephensteen [address] [place] [address] [place] [address] [phone] Social History Tobacco Use Types Packs/Day Years [...] transplant documented in this encounter Care Teams Customer Experience Manager Relationship Specialty Start Date End Date Momo Forbes PCP - General Family Practice 01/02/14 [facility] 1999 [place] [address] Ingrid Santana RN Registered Nurse Transplant 02/10/12 10/01/15 documented as of this encounter
--- OUTSIDE RECORDS SUMMARY | 2022-04-07 11:10 | XMS_ITS | Encounter Summary ---
:1950 Author Organization [place] Address [address] [place] [address] Care Team Providers Name Role Phone Ingrid Santana RN Unavailable Momo Forbes Primary Care Provider Reason for Visit Auth/Cert - Closed Specialty Diagnoses / Procedures Referred By Contact Refer red To Contact Surgery Diagnoses Status Post Kidney Transplant Uu Periop Procedures COMBINED CYSTOSCOPY, REMOVE STENT(S) 500 [place] [address] Phone: Fax: Referral ID Status Reason Start Date Expiration Date Visits Requ ested Visits Authorized [id number] Closed 1 1 Encounter Details Date Type Department Care Team Description 03/11/2014 Hospital Encounter [facility] [place], Migel Evans, Same Day Surgery [facility] 420 [facility] 500 [facility] 195 [place] [address] [place] [address] (Wo rk) Social History Tobacco Use Types [...] 8:46 CDT AM CDT Migel Merchant MD [facility] POCT Performing Organization Address City/State/ZIP Code Phon e Number FV POINT OF CARE TEST, GLUCOSE POINT OF CARE TEST, GLUCOSE documented in this encounter Visit Diagnoses Not on filedocumented in this encounter Active and Recently Administered Medications Care Teams Hot Metal Crane Operator Relationship Specialty Start Date End Date Momo Forbes PCP - General Family Practice 01/02/14 [facility] 1999 [place] [address] Ingrid Santana, RN Registered Nurse Transplant 02/10/1216 documented as of this encounter
--- OUTSIDE RECORDS SUMMARY | 2022-04-07 11:10 | XMS_ITS | Encounter Summary ---
:1950 Author Organization [place] Address [facility] [place] [address] Care Team Providers Name Role Phone Ingrid Santana RN Unavailable Momo Forbes Primary Care Provider Reason for Visit Reason Onset Date Comments Pre Visit Planning - Done 03/08/2014 Appointment on 03/11/2014 Encounter Details Date Type Department Care Team Description 03/08/2014 Telephone Nephrology Alexandria Caldera, Pre Visit Planning - 2nd Floor, Clinic 2A [facility] Done (Appointment on Sanders Akila 03/11/20 14) [address] [address] Social History Tobacco Use Types [...] bring list of medications. Toldpatient to call [phone] if any questions or needs to reschedule. Alexandria Caldera CMA documented in this encounter Plan of Treatment Not on filedocumented as of this encounter Visit Diagnoses Not on filedocumented in this encounter Care Teams Blueprinter Relationship Specialty Start Date End Date Momo Forbes PCP - General Family Practice 01/02/14 [place] [address] Ingrid Santana, RN Registered Nurse Transplant 02/10/12 10/01/15 documented as of this encounter
--- OUTSIDE RECORDS SUMMARY | 2022-04-07 11:10 | XMS_ITS | Encounter Summary ---
:1950 Author Organization [place] Address Critical access hospital0 [facility] [place] [address] Care Team Providers Name Role Phone Ingrid Santana RN Unavailable Momo Forbes Primary Care Provider Reason for Visit Reason Comments Surgical Followup kidney tx 02/02/14 Encounter Details Date Type Department Care Team Description 02/25/2014 Office Visit Transplant Surgery Migel Merchant Hypophosp hatemia (Primary Dx); Clinic MD Nathan Kidney replaced by transplant; 2nd Floor, Clinic 2A 420 [place] -donor kidney transp lant recipient; Sanders Wangenste[address] [facility] 1 95 High risk medications (not anticoagulant s) long-term use; Building group home (current) use of anticoagulant s; 6 [place], [place]emia; [place] [id number] Orthostatic hypotension [facility] 88 [place], [place] (Work) [address] Social History Tobacco Use [...] mid wound(lemon sized) c/w known hematoma. Procedure: [place] and drain removed. Steri strips applied. Hematology: [...] will give mag and phos prescription. 5. [place] - Out today 6 Drain -- out [...] sults (not anticoagulants) section . long-term use terminal computer operator (current) use of anticoagulants PHOSPHORUS Routine 02/25/2014 [...] Component Value Ref Test Analysis Performed At [facility] Range Method Time Signature BK Virus DNA Plasma, EDTA [facility] Quant Source anticoagulant [facility] BK Virus DNA <390 [facility] Quant Unit: cpy/mL [facility] Copy/mL [place] BK Virus DNA <2.6 [facility] Quant Log Unit: log [place] (Note) [facility] INTERPRETIVE INFORMATION: BK Virus, Quantitation by [...] methodologies. Test developed and characteristics determined by [facility]. See Compliance Statement A: [employer] BK Virus DNA Not Detected [facility] Quant Interp Reference range: Not Detected [place] (Note) [place] Performed by [facility], [address] [place] [id number] [email or web address], Kj Mcmillan MD, Lab. Director Specimen Anatomical Collection Method Collection Time Receive d Time (Source) Location / / Volume Laterality Blood specimen 02/25/2014 10:54 4 (specimen) AM CDT 10:55 AM CDT Deysi Alicea MD LAB - MICRO GENERAL ORDERABL ES Performing Organization Address City/[facility]/ZIP Code Phon e Number [address] [address] [facility] Immunology recipient: SOT PRA (Post Tx for Donor Spec Antibody) (02/25/2014 10:54 AM CDT) [facility] Method Time Signature Immunology PRA [facility] Test Name [facility] Immunology Specimen [facility] Result received - [facility] report to follow upon completion. Specimen Anatomical Collection Method Collection Time Receive d Time (Source) Location / / Volume Laterality Blood specimen 02/25/2014 10:54 4 (specimen) AM CDT 10:55 AM CDT Deysi Alicea MD LAB - IMMUNOLOGY ORDERABLES Performing Organization Address City/[facility]/ZIP Code Phon e Number [address] LABS (ABNORMAL) INR (02/25/2014 10:53 AM CDT) P athologist Signature INR 2.39 (H) 0.86 - 1.14 [facility] Specimen Anatomical Collection Method Collection Time Receive d Time (Source) Location / / Volume Laterality Blood specimen 02/25/2014 10:53 4 (specimen) AM CDT 10:54 AM CDT Migel Merchant MD LAB - BLOOD ORDERABLES Performing Organization Address City/[facility] Code Phon e Number [address] LABS (ABNORMAL) Magnesium (02/25/2014 10:53 AM CDT) P athologist Signature Magnesium 1.5 (L) 1.6 - 2.3 [facility] mg/dL [place] [facility] Specimen Anatomical Collection Method Collection Time Receive d Time (Source) Location / / Volume Laterality Blood specimen 02/25/2014 10:53 4 (specimen) AM CDT 10:54 AM CDT Deysi Alicea MD LAB - BLOOD ORDERABLES Performing Organization Address City/State/ZIP Code Phon e Number [address] LABS (ABNORMAL) Phosphorus (02/25/2014 10:53 AM CDT) P athologist Signature Phosphorus 1.3 (L) 2.5 - 4.5 [facility] mg/dL [place] [facility] Specimen Anatomical Collection Method Collection Time Receive d Time (Source) Location / / Volume Laterality Blood specimen 02/25/2014 10:53 4 (specimen) AM CDT 10:54 AM CDT Deysi Alicea MD LAB - BLOOD ORDERABLES Performing Organization Address [facility] Code Phon e Number [facility] [address] LABS Mycophenolic acid (02/25/2014 10:53 AM CDT) Component Value Ref Test Analysis Performed At [facility] gist Range Method Time Signature Last [...] LAB - BLOOD ORDERABLES Performing Organization Address City/[facility]/ZIP Code Phon e Number [facility] [address] LABS Tacrolimus level (02/25/2014 10:53 AM CDT) [facility] gist Method Time Signature Tacrolimus 02/24/14 ?1999 [facility] Last Dose CORRECTED ON 02/25 AT 1055: PREVIOUSLY REPORTED 1999 [facility] Tacrolimus 9.1 5.0 - [facility] Level 15.0 ug/L [facility] Comment: Tacrolimus Reference Range [...] Phon e Number [facility] [address] LABS (ABNORMAL) Basic metabolic panel (02/25/2014 10:53 AM CDT) [facility] gist Method Time Signature Sodium 137 133 - 144 [facility] mmol/L [facility] Potassium 4.6 3.4 - 5.3 [facility] mmol/L [facility] Chloride 108 94 - 109 [facility] mmol/L [facility] Carbon Dioxide 19 (L) 20 - 32 [facility] mmol/L [facility] Anion Gap 10 6 - 17 [facility] mmol/L [facility] Glucose 217 (H) 60 - 99 [facility] mg/dL [facility] Urea Nitrogen 13 7 - 30 [facility] mg/dL [facility] Creatinine 1.48 (H) 0.66 - [facility] 1.25 mg/dL [facility] GFR Estimate 48 (L) >60 [facility] mL/min/1.7 [place] m2 [facility] GFR Estimate If 58 (L) >60 [facility] Black mL/min/1.7 [place] [address] CAMPUS LABS Calcium 9.6 8.5 - 10.4 [facility] mg/dL [facility] Specimen Anatomical Collection Method Collection Time Receive d Time (Source) Location / / Volume Laterality Blood specimen 02/25/2014 10:53 4 (specimen) AM CDT 10:54 AM CDT Deysi Alicea MD LAB - BLOOD ORDERABLES Performing Organization Address City/State/ZIP Code Phon e Number [address] [address] [facility] ([facility] CBC with platelets differential (02/25/2014 10:53 AM CDT) [facility] gist Method Time Signature WBC 4.9 4.0 - [facility] 11.0 [facility] 10e9/L CAMP[facility] RBC Count 2.67 (L) 4.4 - 5.9 [facility] 10e12/L [facility] Hemoglobin 7.8 (L) 13.3 - [facility] 17.7 g/dL [facility] Hematocrit 23.5 (L) 40.0 - [facility] 53.0 % [facility] MCV 88 78 - 100 [facility] fl [facility] MCH 29.2 26.5 - [facility] 33.0 pg [facility] MCHC 33.2 31.5 - [facility] 36.5 g/dL [facility] RDW 14.3 10.0 - [facility] 15.0 % [facility] Platelet Count 179 150 - 450 [facility] 10e9/L [facility] Diff Method Automated [facility] Method [facility] % Neutrophils 89.4 % [facility] % Lymphocytes 3.9 % [facility] % Monocytes 5.1 % [facility] % Eosinophils 1.2 % [facility] % Basophils 0.2 % [facility] % Immature 0.2 % [facility] Granulocytes [facility] Absolute 4.4 1.6 - 8.3 [facility] Neutrophil 10e9/L [facility] Absolute 0.2 (L) 0.8 - 5.3 [facility] Lymphocytes 10e9/L [facility] Absolute 0.3 0.0 - 1.3 [facility] Monocytes 10e9/L [facility] Absolute 0.1 0.0 - 0.7 [facility] Eosinophils 10e9/L [facility] Absolute 0.0 0.0 - 0.2 [facility] Basophils 10e9/L [facility] Abs Immature 0.0 0 - 0.4 [facility] Granulocytes 10e9/L [facility] Specimen Anatomical Collection Method Collection Time Receive d Time (Source) Location / / Volume Laterality Blood specimen 02/25/2014 10:53 4 (specimen) AM CDT 10:54 AM CDT Deysi Alicea MD LAB - BLOOD ORDERABLES Performing Organization Address City/State/ZIP Code Phon e Number [facility] 500 [place] [address] [facility] documented in this encounter Visit Diagnoses Diagnosis 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 replaced by transplant -donor kidney transplant recipie nt Kidney replaced by transplant High risk medications (not anticoagulant s) long-term use Encounter for long-term (current) use of other medications group home (current) use of anticoagulant s Long-term (current) use of anticoagulant s Hypomagnesemia Disorders of magnesium metabolism Orthostatic hypotension documented in this encounter Care Teams Animal Care Worker Relationship Specialty Start Date End Date Momo Forbes PCP - General Family Practice 01/02/14 [facility] 1999 [place] [address] Ingrid Santana, RN Registered Nurse Transplant 02/10/12 10/01/15 documented as of this encounter
--- OUTSIDE RECORDS SUMMARY | 2022-04-07 11:10 | XMS_ITS | Encounter Summary ---
:1950 Author Organization [place] Address [address] [place] [address]. [place] [address] Care Team Providers Name Role Phone Ingrid Santana RN Unavailable Momo Forbes Primary Care Provider Encounter Details Date Type Department Care Team Description 03/18/2014 Orders Only Nephrology Shiva Kahn RN -donor kidney 2nd Floor, Clinic 2A [facility] transplant recipient Tommy Josephensteen [address] [place] [address] [place] [phone] Social History Tobacco Use Types Packs/Day Years [...] transplant documented in this encounter Care Teams White Sourer Relationship Specialty Start Date End Date Momo Forbes PCP - General Family Practice 01/02/14 [facility] [address] [place] [address] Ingrid Santana RN Registered Nurse Transplant 02/10/12 10/01/15 documented as of this encounter
--- OUTSIDE RECORDS SUMMARY | 2022-04-07 11:10 | XMS_ITS | Encounter Summary ---
:1950 Author Organization [place] Address [address] [place] [address] Care Team Providers Name Role Phone Ingrid Santana RN Unavailable Momo Forbes Primary Care Provider Encounter Details Date Type Department Care Team Description 03/11/2014 Anesthesia Event [facility] Aly Esquivel MD PeriOp Services 420 [facility] [address] [address] [place], [place] [address] (Wo rk) Anesthesia Record Procedure Summary Procedure [...] benefits and alternatives discussed with: patient or group sales representative. Possibility of blood products discussed. Procedures [...] filedocumented in this encounter Care Teams Lead Material Handler Relationship Specialty Start Date End Date Momo Forbes PCP - General Family Practice 01/02/14 [facility] 1999 [place] [address] Ingrid Santana, RN Registered Nurse Transplant 02/10/12 10/01/15 documented as of this encounter
--- OUTSIDE RECORDS SUMMARY | 2022-04-07 11:10 | XMS_ITS | Encounter Summary ---
:1950 Author Organization [place] Address [facility] [place] [address] Care Team Providers Name Role Phone Ingrid Santana RN Unavailable Momo Forbes Primary Care Provider Reason for Visit Reason Onset Date Comments Patient Reminder 03/26/2014 Encounter Details Date Type Department Care Team Description 03/26/2014 Telephone Nephrology Yesenia Clements CMA Patient Reminder 2nd Floor, Clinic [address] [place] [phone] Social History Tobacco Use Types [...] on filedocumented in this encounter Care Teams Cooperative Extension Agent Relationship Specialty Start Date End Date Momo Forbes PCP - General Family Practice 01/02/14 [facility] 1999 [place] [address] Ingrid Santana, RN Registered Nurse Transplant 02/10/12 10/01/15 documented as of this encounter
--- OUTSIDE RECORDS SUMMARY | 2022-04-07 11:10 | XMS_ITS | Encounter Summary ---
:1950 Author Organization [place] Address [address] [place] [address]. [place] [address] Care Team Providers Name Role Phone Ingrid Santana RN Unavailable Momo Forbes Primary Care Provider Encounter Details Date Type Department Care Team Description 03/13/2014 Orders Only Nephrology Shiva Kahn, Atrial fibrillation (H); 2nd Floor, Clinic 2A RN -donor kidney transplant stefani Wilburn [address] [phone] [phone] Social History Tobacco Use Types Packs/Day Years [...] transplant documented in this encounter Care Teams Legal Technician Relationship Specialty Start Date End Date Momo Forbes PCP - General Family Practice 01/02/14 [facility] 1999 [place] [address] Ingrid Santana, RN Registered Nurse Transplant 02/10/12 10/01/15 documented as of this encounter
--- OUTSIDE RECORDS SUMMARY | 2022-04-07 11:10 | XMS_ITS | Encounter Summary ---
:1950 Author Organization [place] Address [address] [place] [address]. [place] [address] Care Team Providers Name Role Phone Ingrid [...] 12-lead, tracing only (02/18/2014 9:53 AM CDT) [facility] gist Method Time Signature Interpretation ECG [...] on filedocumented in this encounter Care Teams Life Coach Relationship Specialty Start Date End Date Momo Forbes PCP - General Family Practice 01/02/14 [facility] 1999 [place] [address] Ingrid Santana, RN Registered Nurse Transplant 02/10/12 10/01/15 documented as of this encounter
--- OUTSIDE RECORDS SUMMARY | 2022-04-07 11:10 | XMS_ITS | Encounter Summary ---
:1950 Author Organization [place] Address [facility] [place] [address] Care Team Providers Name Role Phone Ingrid Santana RN Unavailable Momo Forbes Primary Care Provider Encounter Details Date Type Department Care Team Description 02/18/2014 Orders Only Nephrology Shiva Kahn, -donor kidney transp lant recipient (Primary Dx); 2nd Floor, Clinic 2A RN High risk medications (not anticoagulant s) long-term use; Tommy Wilburn [facility] CATY HIGGINS terminal block assembler (current) use of anticoagulant s [place] [address] [place] [phone] Social History Tobacco Use Types Packs/Day Years [...] for long-term (current) use of other medications USP (current) use of anticoagulant s Long-term (current) use of anticoagulant s documented in this encounter Care Teams Director Cost Relationship Specialty Start Date End Date Momo Forbes PCP - General Family Practice 01/02/14 [facility] [address] [place] [address] Ingrid Santana, RN Registered Nurse Transplant 02/10/12 10/01/15 documented as of this encounter
--- OUTSIDE RECORDS SUMMARY | 2022-04-07 11:10 | XMS_ITS | Encounter Summary ---
:1950 Author Organization [place] Address [facility] [place] [address] Care Team Providers Name Role Phone Ingrid Santana RN Unavailable Momo Raines Primary Care Provider Reason for Visit Reason Comments Consult consult for afib Encounter Details Date Type Department Care Team Description 02/18/[address] 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
--- OUTSIDE RECORDS SUMMARY | 2022-04-07 11:10 | XMS_ITS | Encounter Summary ---
:1950 Author Organization [place] Address [address] [place] [address]. [place] [address] Care Team Providers Name Role Phone Ingrid Santana RN Unavailable Momo Forbes Primary Care Provider Encounter Details Date Type Department Care Team Description 03/01/2014 Orders Only Nephrology Shiva Kahn RN -donor kidney 2nd Floor, Clinic 2A [facility] transplant recipient Tommy Josephensteen [address] [place] [address] [place] [phone] Social History Tobacco Use Types Packs/Day Years [...] transplant documented in this encounter Care Teams Dielectric Press Operator Relationship Specialty Start Date End Date Momo Forbes PCP - General Family Practice 01/02/14 [facility] 1999 [place] [address] Ingrid Santana RN Registered Nurse Transplant 02/10/12 10/01/15 documented as of this encounter
--- OUTSIDE RECORDS SUMMARY | 2022-04-07 11:10 | XMS_ITS | Encounter Summary ---
:1950 Author Organization [place] Address Critical access hospital0 [facility] [place] [address] Care Team Providers Name Role Phone Ingrid Santana RN Unavailable Momo Forbes Primary Care Provider Encounter Details Date Type Department Care Team Description 02/18/2014 Orders Only The Transplant Deysi Burns, Kidney replaced by transplan t; 2nd Floor, Clinic 2A S/P kidney transplant [facility] [address] [place] [address] [place] [address] [address] [place] [address] [place], [place] [phone] (Wo rk) [phone] Social History Tobacco Use Types Packs/Day Years [...] Signature Magnesium 1.5 (L) 1.6 - 2.3 [facility] mg/dL [place] [facility] Specimen Anatomical Collection Method Collection Time Receive d Time (Source) Location / / Volume Laterality Blood specimen 02/18/2014 8:56 AM 014 8:57 (specimen) CDT AM CDT Kaitlynn Leon MD LAB - BLOOD ORDERABLES Performing Organization Address City/[facility]/ZIP Code Phon e Number [address] LABS (ABNORMAL) Phosphorus (02/18/2014 8:56 AM CDT) athologist Signature Phosphorus 1.9 (L) 2.5 - 4.5 [facility] mg/dL [place] [facility] Specimen Anatomical Collection Method Collection Time Receive d Time (Source) Location / / Volume Laterality Blood specimen 02/18/2014 8:56 AM 014 8:57 (specimen) CDT AM CDT Kaitlynn Leon MD LAB - BLOOD ORDERABLES Performing Organization Address City/[facility]/ZIP Code Phon e Number [address] LABS Tacrolimus level (02/18/2014 8:56 AM CDT) Patholo gist Method Time Signature Tacrolimus Last 02/12/14 [facility] Dose 1930 [facility] LABS Tacrolimus 14.1 5.0 - [facility] Level 15.0 ug/L [facility] [...] Phon e Number [facility] [address] [place] [address] [facility] LABS (ABNORMAL) CBC with platelets differential (02/18/2014 8:56 AM CDT) Patholo gist Method Time Signature WBC 6.3 4.0 - [facility] 11.0 [facility] 10e9/L [place] [facility] RBC Count 2.59 (L) 4.4 - 5.9 [facility] 10e12/L [facility]S Hemoglobin 7.8 (L) 13.3 - [facility] 17.7 g/dL [facility] LABS Hematocrit 23.7 (L) 40.0 - [facility] 53.0 % [facility] LABS MCV 92 78 - 100 [facility] fl [facility] MCH 30.1 26.5 - [facility] 33.0 pg [facility] LABS MCHC 32.9 31.5 - [facility] 36.5 g/dL [facility]S RDW 14.7 10.0 - [facility] 15.0 % [facility] Platelet Count 140 (L) 150 - 450 [facility] 10e9/L [facility] Diff Method Automated [facility] Method [facility] % Neutrophils 84.7 % [facility] LABS % Lymphocytes 3.8 % [facility] LAB[facility] % Monocytes 6.0 % [facility] LABS % Eosinophils 4.8 % [facility] LABS % Basophils 0.5 % [facility] LAB[facility] % Immature 0.2 % [facility] Granulocytes [facility] Absolute 5.3 1.6 - 8.3 [facility] Neutrophil 10e9/L [facility] Absolute 0.2 (L) 0.8 - 5.3 [facility] Lymphocytes 10e9/L [facility] Absolute 0.4 0.0 - 1.3 [facility] Monocytes 10e9/L [facility]S Absolute 0.3 0.0 - 0.7 [facility] Eosinophils 10e9/L [facility]S Absolute 0.0 0.0 - 0.2 [facility] Basophils 10e9/L [facility] Abs Immature 0.0 0 - 0.4 [facility] Granulocytes 10e9/L [facility] LABS Specimen Anatomical Collection Method Collection Time Receive d Time (Source) Location / / Volume Laterality Blood specimen 02/18/2014 8:56 AM 014 8:57 (specimen) CDT AM CDT Kaitlynn Leon MD LAB - BLOOD ORDERABLES Performing Organization Address City/State/ZIP Code Phon e Number [facility] [address] [place], [place] [phone] [place] [address] LABS (ABNORMAL) Basic metabolic panel (02/18/2014 8:56 AM CDT) Patholo gist Method Time Signature Sodium 141 133 - 144 [facility] mmol/L [facility]S Potassium 5.2 3.4 - 5.3 [facility] mmol/L [facility] Chloride 112 (H) 94 - 109 [facility] mmol/L [facility] Carbon Dioxide 18 (L) 20 - 32 [facility] mmol/L [facility] Anion Gap 11 6 - 17 [facility] mmol/L [facility] Glucose 185 (H) 60 - 99 [facility] mg/dL [facility]S Urea Nitrogen 24 7 - 30 [facility] mg/dL [facility]S Creatinine 1.81 (H) 0.66 - [facility] 1.25 mg/dL [facility] LABS GFR Estimate 38 (L) >60 [facility] mL/min/1.7 [employer] m2 [place] [facility] GFR Estimate If 46 (L) >60 [facility] Black mL/min/1.7 [employer] m2 [place] [facility] Calcium 9.4 8.5 - 10.4 [facility] mg/dL [facility]S Specimen Anatomical Collection Method Collection Time Receive d Time (Source) Location / / Volume Laterality Blood specimen 02/18/2014 8:56 AM 014 8:57 (specimen) CDT AM CDT Kaitlynn Leon MD LAB - BLOOD ORDERABLES Performing Organization Address City/[facility] Code Phon e Number [address] LABS (ABNORMAL) INR (02/18/2014 8:56 AM CDT) P athologist Signature INR 2.13 (H) 0.86 - 1.14 [facility] LABS Specimen Anatomical Collection Method Collection Time Receive d Time (Source) Location / / Volume Laterality Blood specimen 02/18/2014 8:56 AM 014 8:57 (specimen) CDT AM CDT Kaitlynn Leon MD LAB - BLOOD ORDERABLES Performing Organization Address City/[facility] Code Phon e Number [address] LABS documented in this encounter Visit Diagnoses Diagnosis Kidney replaced by transplant S/P kidney transplant Kidney replaced by transplant documented in this encounter Care Teams Hardware Engineering Manager Relationship Specialty Start Date End Date Momo Forbes PCP - General Family Practice 01/02/14 [facility] [address] [place] [address] Ingrid Santana, RN Registered Nurse Transplant 02/10/12 10/01/15 documented as of this encounter
--- OUTSIDE RECORDS SUMMARY | 2022-04-07 11:10 | XMS_ITS | Encounter Summary ---
:1950 Author Organization [place] Address [facility] [place] [address] Care Team Providers Name Role Phone Ingrid Santana RN Unavailable Momo Forbes Primary Care Provider Reason for Visit Reason Onset Date Comments Transplant 03/08/2014 Elevated tacrolimus level Encounter Details Date Type Department Care Team Description 03/08/2014 Telephone Nephrology Jeff Giordano (Elevated 2nd Floor, Clinic 2A Almita Palomino RN tacrolimus level) Tommy [facility] [address] [address] Social History Tobacco Use Types [...] repeat the level. Leonor Giordano R.N. - [phone] documented in this encounter Plan of Treatment Not on filedocumented as of this encounter Visit Diagnoses Not on filedocumented in this encounter Care Teams Mask Design Engineer Relationship Specialty Start Date End Date Momo Forbes PCP - General Family Practice 01/02/14 [place] [address] Ingrid Santana, RN Registered Nurse Transplant 02/10/12 10/01/15 documented as of this encounter
--- OUTSIDE RECORDS SUMMARY | 2022-04-07 11:10 | XMS_ITS | Encounter Summary ---
:1950 Author Organization [place] Address [facility] [place] [address] Care Team Providers Name Role Phone Ingrid Santana RN Unavailable Momo Forbes Primary Care Provider Encounter Details Date Type Department Care Team Description 02/18/2014 Orders Only Nephrology Shiva Kahn RN -donor kidney transplant recipie nt (Primary Dx); 2nd Floor, Clinic 2A [facility] Kidney replaced by transplant; Tommy Wangensteen [address] [facility] S/P kidney transplant Building [address] [place] [phone] Social History Tobacco Use Types Packs/Day Years [...] transplant documented in this encounter Care Teams Nitrator Operator Relationship Specialty Start Date End Date Forbes, Ton PCP - General Family Practice 01/02/14 [facility] [address] [place] [address] Inrgid Santana, RN Registered Nurse Transplant 02/10/12 10/01/15 documented as of this encounter
--- OUTSIDE RECORDS SUMMARY | 2022-04-07 11:10 | XMS_ITS | Encounter Summary ---
:1950 Author Organization [place] Address [facility] [place] [address] Care Team Providers Name Role Phone Ingrid Santana RN Unavailable Momo Forbes Primary Care Provider Reason for Visit Reason Onset Date Comments Previsit 02/15/[address] Merchant 02/18 Encounter Details Date Type Department Care Team Description 02/15/2014 Telephone Transplant Surgery Radha Acosta LPN Prev isit (Appt with Dr Anthony Merchant 02/18) 2nd Floor, Clinic [address]A [address] [phone] Social History Tobacco Use Types [...] on filedocumented in this encounter Care Teams Project Manager Senior Relationship Specialty Start Date End Date Momo Forbes PCP - General Family Practice 01/02/14 [place] [id number] Ingrid Santana, RN Registered Nurse Transplant 02/10/12 10/01/15 documented as of this encounter
--- OUTSIDE RECORDS SUMMARY | 2022-04-07 11:10 | XMS_ITS | Encounter Summary ---
:1950 Author Organization [place] Address [address] [place] [address] Care Team Providers Name Role Phone Ingrid Santana RN Unavailable Momo Forbes Primary Care Provider Encounter Details Date Type Department Care Team Description 02/19/2014 Orders Only [facility], [facility], [facility] [place] [address] [phone] [place] [address] 814 [place] [address] (Wo rk) Social History Tobacco [...] Results Tacrolimus level (03/19/2014 9:05 AM CDT) [facility] Method Time Signature Tacrolimus Last 03/18/14 [facility] Dose 2100 [facility] LABS Tacrolimus 13.1 5.0 - [facility] Level 15.0 ug/L [facility] LABS Comment: Tacrolimus Reference Range [...] Code Phon e Number [facility] [address] [place], [place] [phone] [place] [address] [facility] LAB[facility] Tacrolimus level (03/12/2014 9:40 AM CDT) [facility] gist Method Time Signature Tacrolimus Not Provided [facility] Last Dose [facility] LABS Tacrolimus 7.3 5.0 - [facility] Level 15.0 ug/L [facility] LABS Comment: Tacrolimus Reference Range [...] Code Phon e Number [facility] [address] [place], [place] [phone] [place] [address] [facility] LABS Tacrolimus level (03/08/2014 10:15 AM CDT) [facility] gist Method Time Signature Tacrolimus Last 03/07/14 [facility] Dose 2000 [facility] LABS Tacrolimus 6.1 5.0 - [facility] Level 15.0 ug/L [facility] LABS Comment: Tacrolimus Reference Range [...] Code Phon e Number [facility] [address] [place], [place] [phone] [place] [address] [facility] LABS Tacrolimus level (03/06/2014 5:13 PM CDT) [facility] gist Method Time Signature Tacrolimus Last 1400 [facility] Dose 03/05/14 [facility] LABS Tacrolimus 11.3 5.0 - [facility] Level 15.0 ug/L [facility] LABS Comment: Tacrolimus Reference Range [...] Code Phon e Number [facility] [address] [place], [place] [phone] [place] [address] [facility] LABS Tacrolimus level (03/01/2014 8:10 AM CDT) [facility] gist Method Time Signature Tacrolimus Last 02/28/14 [facility] Dose 1930 [facility] LABS Tacrolimus 10.6 5.0 - [facility] Level 15.0 ug/L [facility] LABS Comment: Tacrolimus Reference Range [...] LAB - BLOOD ORDERABLES Performing Organization Address City/State/[facility] Code Phon e Number [facility] [address] [place], [place] [phone] [place] [address] [facility] LABS Tacrolimus level (02/27/2014 8:15 AM CDT) [facility] gist Method Time Signature Tacrolimus Last 02/26/14 [facility] Dose 2000 [facility] LABS Tacrolimus 11.4 5.0 - [facility] Level 15.0 ug/L [facility] LABS Comment: Tacrolimus Reference Range [...] LAB - BLOOD ORDERABLES Performing Organization Address City/[facility] Code Phon e Number [facility] [address] [place], [place] [phone] [place] [address] LABS HLA Lukasz Class II Single Antigen (02/25/2014 10:43 AM CDT) Component Value Ref Test Analysis Performed At [facility] gist Range Method Time Signature SA2 Test [...] City/State/ZIP Code Phon e Number [facility] Immunology/[place], [place] [address] [facility] 500 [facility] [address] Building, Room 3-580 HISTOTRAC HLA Lukasz Class I Single Antigen (02/25/2014 10:43 AM CDT) Component Value Ref Test Analysis Performed At [facility] gist Range Method Time Signature SA1 Test [...] LAB - IMMUNOLOGY ORDERABLES Performing Organization Address City/[facility]/ZIP Code Phon e Number [facility] Immunology/[place], [place] [address] [facility] 500 [facility] [address] Building, Room 3-580 HISTOTRAC PRA Interfering Substance SCR (02/25/2014 10:43 AM CDT) Component Value Ref Test Analysis Performed At [facility] gist Range Method Time Signature Interfering Luminex [...] Code Phon e Number [facility] Immunology/Histocompatabil [place], [place] [address] [facility] [address] [facility] [address] Building, Room 3-580 HISTOTRAC Tacrolimus level (02/21/2014 8:45 AM CDT) [facility] gist Method Time Signature Tacrolimus Last 02/20/14 [facility] Dose 2000 [facility] LABS Tacrolimus 7.9 5.0 - [facility] Level 15.0 ug/L [facility] LABS Comment: Tacrolimus Reference Range [...] Code Phon e Number [facility] [address] [place] [address] [facility] LABS documented in this encounter Visit Diagnoses Not on filedocumented in this encounter Care Teams Therapeutic Assistant Relationship Specialty Start Date End Date Momo Forbes PCP - General Family Practice 01/02/14 [facility] [address] [place] [address] Ingrid Santana, RN Registered Nurse Transplant 02/10/12 10/01/15 documented as of this encounter
--- OUTSIDE RECORDS SUMMARY | 2022-04-07 11:10 | XMS_ITS | Encounter Summary ---
:1950 Author Organization [place] Address [address] [facility] [place] [address] Care Team Providers Name Role Phone Ingrid Santana RN Unavailable Momo Forbes Primary Care Provider Encounter Details Date Type Department Care Team Description 03/15/2014 Hospital Encounter [facility] Susy Cole, Lymphocele Unit 2A [facility] [address] [place] [phone] [place], [place] [phone] (Wo rk) Social History Tobacco Use Types [...] documented in this encounter Discharge Instructions Discharge InstructionsJenaette Lopez RN - 03/15/2014 9:33 AM CDT [...] healed, wash daily with antibacterial soap. [facility] INTERVENTIONAL RADIOLOGY DEPARTMENT Procedure Physician Andrea Can Date of procedure Telephone numbers: [phone] Tuesday-Tuesday 8:00 am to 4:30 pm [phone] After 4:30 pm Tuesday-Tuesday, Weekends & Holidays. Ask for the Interventional Radiologist pension adviser. Someone is available 24 hours/day [facility] toll free number: Tuesday-Tuesday 8:00 am to [...] CCRN March 15, 2014 9:20 AM Pager: [phone] Nano Cline NP - 03/15/2014 8:58 AM CDT Discussed order with Dr Merchant today. He would like drain placement if the fluid appears thin. If itappears to be a hematoma then aspiration only. D/w Drea resident and IR staff doing the case. Thanks [facility] LEGGER PRESS OPERATOR ([phone]) Jeanette Lopez RN - 03/15/2014 8:14 AM CDT Prepped and consented, INR 1.1 FSBS is 219 documented in this encounter Procedure Notes Drea Glasgow MD - 03/15/2014 9:23 AM CDT Interventional Radiology Brief Post Procedure Note Pre Procedure Diagnosis: perinephric fluid collection Post Procedure Diagnosis: Same Procedure: Aspiration of RLQ fluid collection over the tranplant kidney Proceduralist: Drea Glasgow MD, Andrea Gibbons PA-C Director Speech And Hearing: None Time Out: Prior to the start [...] CDT 10:05 AM CDT Celina Cole MD [facility] POCT Performing Organization Address City/State/ZIP [...] Dr. Yossi Cox Resident: Dr. Drea Glasgow Director Speech And Hearing: Andrea Gibbons PA-C. Medications: 1% lidocaine and [...] Dr. Yossi Cox Resident: Dr. Drea Glasgow Director Speech And Hearing: Andrea Gibbons PA-C. Medications: 1% lidocaine and [...] Component Value Ref Test Analysis Performed At [facility] Range Method Time Signature Specimen Aspirate [facility] LABS Gram Stain Many PMNs seen [facility] No organisms seen MICROBIOLOGY Micro Report FINAL [facility] Status 03/15/2014 MICROBIOLOGY Specimen Anatomical Collection Method Collection Time Receive d Time (Source) Location / / Volume Laterality 03/15/2014 9:05 AM 4 9:59 CDT AM CDT Celina Cole MD LAB - MICRO GENERAL ORDERABL ES Performing Organization Address City/[facility] Phon e Number [address] LABS [facility] MICROBIOLOGY (ABNORMAL) Fluid Culture (03/15/2014 9:05 AM CDT) Component Value Ref Test Analysis Performed At [facility] Range Method Time Signature Specimen Aspirate [facility] Description [facility] LABS Culture Micro Light growth Coagulase negat jo Staphylococcus Susceptibility testing not [facility] routinely done MICROBIOLOGY (A) Micro Report FINAL 03/18/2014 [facility] Status MICROBIOLOGY Specimen Anatomical Collection Method Collection Time Receive d Time (Source) Location / / Volume Laterality Fluid sample SPECIMEN OBTAINED 03/15/2014 9:05 AM 02/20 9:59 (specimen) BY ASPIRATION / CDT AM CDT Unknown Celina Cole MD LAB - MICRO GENERAL ORDERABL ES Performing Organization Address City/[facility] Phon e Number [address] LABS [facility] MICROBIOLOGY Triglyceride Fluid (03/15/2014 9:05 AM CDT) [facility] Method Time Signature Triglyceride Aspirate [facility] Fluid Source PERINEPHRIC [facility] LABS Triglyceride 94 mg/dL [facility] Fluid [facility] LABS Comment: No reference ranges have been [...] Phon e Number [facility] [address] [place], [place] [phone] [place] [address] LABS Cell count with differential fluid (03/15/2014 9:05 AM CDT) Component Value Ref Test Analysis [facility] gist Range Method Time Signature Body Fluid Aspirate [facility] Analysis Source PERINEPHRIC [facility] LABS Color Fluid Brown [facility] LABS Appearance Turbid [facility] Fluid [facility] LABS RBC Fluid << Do Not /uL [facility] Report >> [facility] LABS WBC Fluid 17847 /uL [facility] LABS % Neutrophils 97 % [facility] Fluid [facility] LABS % Lymphocytes 2 % [facility] Fluid [facility] % Eosinophils 1 % [facility] Fluid [facility] LABS Specimen Anatomical Collection Method Collection Time Receive d Time (Source) Location / / Volume Laterality SPECIMEN OBTAINED 03/15/2014 9:05 AM 02/20 9:56 BY ASPIRATION / CDT AM CDT Unknown Celina Cole MD LAB - BODY FLUIDS ORDERABLES Performing Organization Address City/State/ZIP Code Phon e Number [facility] [address] LABS Lactate dehydrogenase fluid (03/15/2014 9:05 AM CDT) Component Value Ref Test Analysis Performed At [facility] gist Range Method Time Signature LD Fluid Source Aspirate [facility] PERINEPHRIC [facility] LABS Lactate Canceled, Test credited U/L [facility] [...] Phon e Number [facility] [address] LABS Creatinine fluid (03/15/2014 9:05 AM CDT) Patholo gist Method Time Signature Creatinine Aspirate [facility] Fluid Source PERINEPHRIC [facility] LABS Creatinine 1.5 mg/dL [facility] Fluid [facility] LABS Comment: No reference ranges have been [...] Phon e Number [facility] [address] [place] [address] [facility] LABS INR point of care (03/15/2014 8:06 AM CDT) P athologist Signature INR Point of 1.1 0.86 - POINT OF CARE Care 1.14 TEST, HANDHELD METER Specimen Anatomical Collection Method Collection Time Receive d Time (Source) Location / / Volume Laterality 03/15/2014 8:06 AM 4 8:30 CDT AM CDT Celina Cole MD LAB - BLOOD ORDERABLES Performing Organization Address City/[facility]/ZIP Code Phon e Number [facility] [...] LAB - BEAKER POCT Performing Organization Address City/[facility]/ZIP Code Phon e Number [facility] [...] Intra-procedure documented in this encounter Care Teams I O Psychologist Relationship Specialty Start Date End Date Momo Forbes PCP - General Family Practice 01/02/14 [facility] [address] [place] [address] Ingrid Santana, RN Registered Nurse Transplant 02/10/12 10/01/15 documented as of this encounter
--- OUTSIDE RECORDS SUMMARY | 2022-04-07 11:10 | XMS_ITS | Encounter Summary ---
:1950 Author Organization [place] Address [address] [place] [address]. [place] [address] Care Team Providers Name Role Phone Ingrid Santana RN Unavailable Momo Forbes Primary Care Provider Encounter Details Date Type Department Care Team Description 02/15/2014 Orders Only Nephrology Shiva Kahn RN Kidney replaced by transplant; 2nd Floor, Clinic 2A [facility] S/P kidney transplant Tommy Wangensteen [address] [place] [address] [place] [phone] Social History Tobacco Use Types Packs/Day Years [...] documented in this encounter Care Teams Insurance Defense Attorney Relationship Specialty Start Date End Date Momo Forbes PCP - General Family Practice 01/02/14 [facility] [address] [place] [address] Ingrid Santana, RN Registered Nurse Transplant 02/10/12 10/01/15 documented as of this encounter
--- OUTSIDE RECORDS SUMMARY | 2022-04-07 11:10 | XMS_ITS | Encounter Summary ---
:1950 Author Organization [place] Address [facility] [address] Care Team Providers Name Role Phone Ingrid Santana RN Unavailable Momo Forbes Primary Care Provider Reason for Visit Reason Onset Date Comments Pt. Information/instruction 03/14/2014 Encounter Details Date Type Department Care Team Description 03/14/2014 Telephone [facility] Beto Womack Pt . Interventional Radio martha Dangelo RN Information/instructio [address] [place] [address] Social History Tobacco Use Types [...] on filedocumented in this encounter Care Teams Alley Worker Relationship Specialty Start Date End Date Momo Forbes PCP - General Family Practice 01/02/14 [facility] [address] [place] [address] Ingrid Santana RN Registered Nurse Transplant 02/10/1210/16 documented as of this encounter
--- OUTSIDE RECORDS SUMMARY | 2022-04-07 11:10 | XMS_ITS | Encounter Summary ---
:1950 Author Organization [place] Address [facility]0 [facility] [place] [address] Care Team Providers Name Role Phone Ingrid Santana RN Unavailable Momo Forbes Primary Care Provider Reason for Visit Reason Onset Date Comments Previsit 02/20/2014 Encounter Details Date Type Department Care Team Description 02/20/2014 Telephone Transplant Surgery C nanda Merchant, Migel Evans MD Previsit 2nd Floor, Clinic 2A [address] [address] [facility] [place] [phone] Social History Tobacco Use Types Packs/Day Years [...] on filedocumented in this encounter Care Teams Pig Casting Machine Operator Relationship Specialty Start Date End Date Momo Forbes PCP - General Family Practice 01/02/14 [place] [phone] Ingrid Santana, RN Registered Nurse Transplant 02/10/12 10/01/15 documented as of this encounter
--- OUTSIDE RECORDS SUMMARY | 2022-04-07 11:10 | XMS_ITS | Encounter Summary ---
:1950 Author Organization [place] Address [address] [place] [address]. [place] [address] Care Team Providers Name Role Phone Ingrid Santana RN Unavailable Momo Forbes Primary Care Provider Reason for Visit Reason Comments Surgical Followup Post op for kidney transplan t POD 16 Encounter Details Date Type Department Care Team Description 02/18/2014 Office Visit Transplant Surgery Migel Merchant S/P jamari cutler transplant (Primary Dx); Clinic MD Nathan Postop check; 2nd Floor, Clinic 2A 420 [place] [facility] (H); [facility] 1 95 Atrial fibrillation (H) Building [address] [place] [id number] [place] [address] [place], [place] (Work) [phone] Social History Tobacco Use Types Packs/Day Years [...] appearing no apparent distress Drain in place. Scammon in place. Hematology: Recent Labs Lab Test [...] Stent: out in ~ 4 weeks 4. Scammon. Follow up next Tuesday for staple removal [...] fibrillation documented in this encounter Care Teams Atmospheric Physics Professor Relationship Specialty Start Date End Date Momo Forbes PCP - General Family Practice 01/02/14 [facility] [address] [place] [address] Ingrid Santana, RN Registered Nurse Transplant 02/10/12 10/01/15 documented as of this encounter
--- OUTSIDE RECORDS SUMMARY | 2022-04-07 11:10 | XMS_ITS | Encounter Summary ---
:1950 Author Organization [place] Address [address] [place] [address] Care Team Providers Name Role Phone Ingrid Santana RN Unavailable Momo Forbes Primary Care Provider Encounter Details Date Type Department Care Team Description 03/22/[address] [facility], [facility] jm [place] [address] [phone] [place] [address] 490 [place] [address] (Wo rk) Social History Tobacco [...] Results Tacrolimus level (04/19/2014 8:40 AM CDT) [facility] Method Time Signature Tacrolimus Not Provided [facility] Last Dose [facility] LABS Tacrolimus 10.3 5.0 - [facility] Level 15.0 ug/L [facility] LABS Comment: Tacrolimus Reference Range [...] Code Phon e Number [facility] 500 [place], [place] [phone] [place] [address] [facility] LABS Tacrolimus level (04/16/2014 8:22 AM CDT) Patholo gist Method Time Signature Tacrolimus Not Provided [facility] Last Dose [facility] LABS Tacrolimus 9.1 5.0 - [facility] Level 15.0 ug/L [facility] LABS Comment: Tacrolimus Reference Range [...] Code Phon e Number [facility] 500 [place], [place] [phone] [place] [address] [facility] LABS Tacrolimus level (04/11/2014 8:40 AM CDT) [facility] gist Method Time Signature Tacrolimus Last 04/10/14 [facility] Dose 19:00 [facility] LABS Tacrolimus 14.4 5.0 - [facility] Level 15.0 ug/L [facility] LABS Comment: Tacrolimus Reference Range [...] Code Phon e Number [facility] 500 [place], [place] [phone] [place] [address] [facility] LABS Tacrolimus level (04/09/2014 8:45 AM CDT) [facility] gist Method Time Signature Tacrolimus Last 04/08/14 [facility] Dose 2000 [facility] LABS Tacrolimus 11.7 5.0 - [facility] Level 15.0 ug/L [facility] LABS Comment: Tacrolimus Reference Range [...] Code Phon e Number [facility] 500 [place], [place] [phone] [place] [address] [facility] Tacrolimus level (04/05/2014 9:40 AM CDT) [facility] gist Method Time Signature Tacrolimus Last 1999 [facility] Dose 04/04/14 [facility] LABS Tacrolimus 9.7 5.0 - [facility] Level 15.0 ug/L [facility] LABS Comment: Tacrolimus Reference Range [...] Code Phon e Number [facility] 500 [place] [address] [facility] LABS (ABNORMAL) Tacrolimus level (03/28/2014 8:30 AM CDT) [facility] gist Method Time Signature Tacrolimus Last 03/27/14 [facility] Dose 1900 [facility] LABS Tacrolimus 15.8 (H) 5.0 - [facility] Level 15.0 ug/L [facility] LABS Comment: Tacrolimus Reference Range [...] Code Phon e Number [facility] 500 [place], [place] [phone] [place] [address] [facility] LABS Tacrolimus level (03/26/2014 9:18 AM CDT) [facility] gist Method Time Signature Tacrolimus Last 03/25/14 [facility] Dose 1900 [facility] LABS Tacrolimus 9.2 5.0 - [facility] Level 15.0 ug/L [facility] LABS Comment: Tacrolimus Reference Range [...] Code Phon e Number [facility] 500 [place], [place] [phone] [place] [address] [facility] LABS Tacrolimus level (03/14/2014 9:00 AM CDT) [facility] gist Method Time Signature Tacrolimus Last 1999 [facility] Dose 03/13/14 [facility] LABS Tacrolimus 9.5 5.0 - [facility] Level 15.0 ug/L [facility] LABS Comment: Tacrolimus Reference Range [...] Code Phon e Number [facility] 500 [place], [place] [phone] [place] [address] LABS documented in this encounter Visit Diagnoses Not on filedocumented in this encounter Care Teams Industrial Spray Painter Relationship Specialty Start Date End Date Momo Forbes PCP - General Family Practice 01/02/14 [facility] [address] [place] [address] Ingrid Santana RN Registered Nurse Transplant 02/10/12 10/01/15 documented as of this encounter
--- OUTSIDE RECORDS SUMMARY | 2022-04-07 11:10 | XMS_ITS | Encounter Summary ---
:1950 Author Organization [place] Address [facility] [place] [address] Care Team Providers Name Role Phone Ingrid Santana RN Unavailable Momo Forbes Primary Care Provider Reason for Visit Reason Onset Date Comments [facility] Encounter Details Date Type Department Care Team Description 03/04/2014 Refill The Transplant Kaitlynn Moreno MD Refill Request 2nd Floor, Clinic 2A [facility] ([facility]) [facility] [address] [place] [address] 88 [address] [place], [place] [phone] (Wo rk) [phone] Social History Tobacco Use Types Packs/Day Years [...] Fill Date: 02/08/14 Quantity: 60 [facility] [phone] documented in this encounter Plan of Treatment Not on filedocumented as of this encounter Visit Diagnoses Diagnosis Atrial fibrillation (H) Atrial fibrillation documented in this encounter Care Teams Clinical Trials Specialist Relationship Specialty Start Date End Date Momo Forbes PCP - General Family Practice 01/02/14 [place] [phone] Ingrid Santana, RN Registered Nurse Transplant 02/10/12 10/01/15 documented as of this encounter
--- OUTSIDE RECORDS SUMMARY | 2022-04-07 11:10 | XMS_ITS | Encounter Summary ---
:1950 Author Organization [place] Address [address] [place] [address]. [place] [address] Care Team Providers Name Role Phone Ingrid Santana RN Unavailable Momo Forbes Primary Care Provider Encounter Details Date Type Department Care Team Description 03/11/2014 Orders Only Transplant Surgery Celina Cole (Primary Clinic A, Dx) 2nd Floor, Clinic 2A [address] [place] [address] [address] [facility] [place] [address] Social History Tobacco Use Types [...] channels documented in this encounter Care Teams Corner Trimmer Operator Relationship Specialty Start Date End Date Momo Forbes PCP - General Family Practice 01/02/14 [facility] [address] [place] [address] Ingrid Santana, RN Registered Nurse Transplant 02/10/12 10/01/15 documented as of this encounter
--- OUTSIDE RECORDS SUMMARY | 2022-04-07 11:11 | XMS_ITS | Encounter Summary ---
:1950 Author Organization [place] Address [address] [place] [address]. [place] [address] Care Team Providers Name Role Phone Ingrid Santana RN Unavailable Momo Forbes Primary Care Provider Reason for Visit Reason Onset Date Comments Refill Request 02/12/2014 clotrimazole Encounter Details Date Type Department Care Team Description 02/12/2014 Refill Nephrology Kaitlynn Leon MD Refill Request 2nd Floor, Clinic 2A [facility] (clotrimazole) [address] [phone] Social History Tobacco Use Types Packs/Day Years [...] Encounter - Lianne Braswell, [facility] - 02/12/2014 8:50 AM CDT Last Fill Date: 02/08/14 Last Fill Quantity: 70 Last Office Visit: 02/11/14 Proactive request, and also requesting a new quantity for a one month supply. Thanks! Lianne Braswell, PharmD [facility] Transplant Program [phone] documented in this encounter Plan of Treatment Not on filedocumented as of this encounter Visit Diagnoses Diagnosis S/P kidney transplant Kidney replaced by transplant documented in this encounter Care Teams Portable Trackman Relationship Specialty Start Date End Date Momo Forbes PCP - General Family Practice 01/02/14 [facility] [address] [place] [address] Ingrid Santana, RN Registered Nurse Transplant 02/10/12 10/01/15 documented as of this encounter
--- OUTSIDE RECORDS SUMMARY | 2022-04-07 11:11 | XMS_ITS | Encounter Summary ---
:1950 Author Organization [place] Address [address] [place] [address]. [place] [address] Care Team Providers Name Role Phone Ingrid Santana RN Unavailable Momo Forbes Primary Care Provider Encounter Details Date Type Department Care Team Description 02/11/2014 Orders Only Nephrology Josseline Nice, Kidney replaced by 2nd Floor, Clinic 2A JIGMAKER transplant (Primary Sanders Wangfelisa Dx) [address] [phone] Social History Tobacco Use Types Packs/Day Years [...] Primary documented in this encounter Care Teams Family Reunification Specialist Relationship Specialty Start Date End Date Momo Forbes PCP - General Family Practice 01/02/14 [facility] [address] [place] [address] Ingrid Santana RN Registered Nurse Transplant 02/10/12 10/01/15 documented as of this encounter
--- OUTSIDE RECORDS SUMMARY | 2022-04-07 11:11 | XMS_ITS | Encounter Summary ---
:1950 Author Organization [place] Address [facility] [place] [address] Care Team Providers Name Role Phone Ingrid Santana RN Unavailable Momo Forbes Primary Care Provider Reason for Visit Reason Comments Eval/Assessment LABS, ASSESSMENT, EDUCATION AND DRESSING CHANGE. Encounter Details Date Type Department Care Team Description 02/14/2014 Infusion Therapy Specialty Infusion Kaitlynn Leon MD Kidney replaced by transplant (Primary D x); Visit and Procedure Center [facility] S/P kidney transplant [facility] Building 200 [address] [address] [place], [place] (Work) [phone] Social History Tobacco Use [...] documented as of this encounter Progress Notes Jsoe Plata RN - 02/14/2014 3:25 PM CDT Diego Guthrie came to [facility] today for a lab and assess following a Kidney transplant on 02/02/14. Discharge date: 02/08/14 lactation coordinator: Leandro Kahn Phone number patient can be reached at: [phone] Physical Assessment: See physical assessment located under [...] Tuesday. 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/Demolition Specialist verbalized understanding, all questions answered: YES Discharged [...] Signature INR 2.29 (H) 0.86 - 1.14 [facility] LABS Specimen Anatomical Collection Method Collection Time Receive d Time (Source) Location / / Volume Laterality Blood specimen 02/14/2014 7:51 AM 014 7:58 (specimen) CDT AM CDT Kaitlynn Leon MD LAB - BLOOD ORDERABLES Performing Organization Address City/State/ZIP Code Phon e Number [facility] 500 [place], [place] [phone] [place] [address] LABS Tacrolimus level (02/14/2014 7:51 AM CDT) [facility] gist Method Time Signature Tacrolimus Last 1914 [facility] Dose 02/13/14 [facility] LABS Tacrolimus 7.5 5.0 - [facility] Level 15.0 ug/L [facility] LABS Comment: Tacrolimus Reference Range Kidney Transplant [...] e Number [facility] 500 [place], [place] [phone] [place] [address] LABS (ABNORMAL) CBC with platelets differential (02/14/2014 7:51 AM CDT) [facility] gist Method Time Signature WBC 6.9 4.0 - [facility] 11.0 [place] 10e9/L [place] LABS RBC Count 2.55 (L) 4.4 - 5.9 [facility] 10e12/L [facility] LABS Hemoglobin 7.8 (L) 13.3 - [facility] 17.7 g/dL [facility] LABS Hematocrit 23.4 (L) 40.0 - [facility] 53.0 % [facility] LABS MCV 92 78 - 100 [facility] fl [facility] LABS MCH 30.6 26.5 - [facility] 33.0 pg [facility] LABS MCHC 33.3 31.5 - [facility] 36.5 g/dL [facility] LABS RDW 14.9 10.0 - [facility] 15.0 % [facility] LABS Platelet Count 122 (L) 150 - 450 [facility] 10e9/L [facility] LABS Diff Method Automated [facility] Method [facility] LABS % Neutrophils 88.7 % [facility] LABS % Lymphocytes 2.6 % [facility] LABS % Monocytes 4.5 % [facility] LABS % Eosinophils 3.8 % [facility] % Basophils 0.1 % [facility] % Immature 0.3 % [facility] Granulocytes [facility] LABS Absolute 6.1 1.6 - 8.3 [facility] Neutrophil 10e9/L [facility] LABS Absolute 0.2 (L) 0.8 - 5.3 [facility] Lymphocytes 10e9/L [facility] LABS Absolute 0.3 0.0 - 1.3 [facility] Monocytes 10e9/L [facility] LABS Absolute 0.3 0.0 - 0.7 [facility] Eosinophils 10e9/L [facility] LABS Absolute 0.0 0.0 - 0.2 [facility] Basophils 10e9/L [facility] LABS Abs Immature 0.0 0 - 0.4 [facility] Granulocytes 10e9/L [facility] LABS Specimen Anatomical Collection Method Collection Time Receive d Time (Source) Location / / Volume Laterality Blood specimen 02/14/2014 7:51 AM 014 7:53 (specimen) CDT AM CDT Joseph Quintana MD LAB - BLOOD ORDERABLES Performing Organization Address City/[facility] Code Phon e Number [address] LABS (ABNORMAL) Phosphorus (02/14/2014 7:51 AM CDT) P athologist Signature Phosphorus 2.4 (L) 2.5 - 4.5 [facility] mg/dL [place] LABS Specimen Anatomical Collection Method Collection Time Receive d Time (Source) Location / / Volume Laterality Blood specimen 02/14/2014 7:51 AM 014 7:53 (specimen) CDT AM CDT Joseph Quintana MD LAB - BLOOD ORDERABLES Performing Organization Address City/[facility]/ZIP Code Phon e Number [address] [facility] LABS Magnesium (02/14/2014 7:51 AM CDT) P athologist Signature Magnesium 1.6 1.6 - 2.3 [facility] mg/dL CAMPUS LABS Specimen Anatomical Collection Method Collection Time Receive d Time (Source) Location / / Volume Laterality Blood specimen 02/14/2014 7:51 AM 014 7:53 (specimen) CDT AM CDT Joseph Quintana MD LAB - BLOOD ORDERABLES Performing Organization Address City/[facility] Code Phon e Number [facility] [address] [place] [address] [facility] LABS (ABNORMAL) Basic metabolic panel (02/14/2014 7:51 AM CDT) Patholo gist Method Time Signature Sodium 143 133 - 144 [facility] mmol/L [facility] LABS Potassium 5.4 (H) 3.4 - 5.3 [facility] mmol/L [facility] LABS Chloride 113 (H) 94 - 109 [facility] mmol/L [facility] LABS Carbon Dioxide 20 20 - 32 [facility] mmol/L [facility] LABS Anion Gap 9 6 - 17 [facility] mmol/L [facility] LABS Glucose 193 (H) 60 - 99 [facility] mg/dL [facility] LABS Urea Nitrogen 18 7 - 30 [facility] mg/dL [facility] LABS Creatinine 1.82 (H) 0.66 - [facility] 1.25 mg/dL [facility] LABS GFR Estimate 38 (L) >60 [facility] mL/min/1.7 [place] m2 CAMPUS LABS GFR Estimate If 46 (L) >60 [facility] Black mL/min/1.7 [place] m2 CAMPUS LABS Calcium 9.2 8.5 - 10.4 [facility] mg/dL [facility] LABS Specimen Anatomical Collection Method Collection Time Receive d Time (Source) Location / / Volume Laterality Blood specimen 02/14/2014 7:51 AM 014 7:53 (specimen) CDT AM CDT Joseph Quintana MD LAB - BLOOD ORDERABLES Performing Organization Address City/State/ZIP Code Phon e Number [facility] [address] [place] [address] [facility] LABS documented in this encounter Visit Diagnoses Diagnosis Kidney replaced by transplant - Primary S/P kidney transplant Kidney replaced by transplant documented in this encounter Care Teams Regrinder Operator Relationship Specialty Start Date End Date Forbes, Ton PCP - General Family Practice 01/02/14 [facility] [address] [place] [address] Ingrid Santana, RN Registered Nurse Transplant 02/10/12 10/01/15 documented as of this encounter
--- OUTSIDE RECORDS SUMMARY | 2022-04-07 11:11 | XMS_ITS | Encounter Summary ---
:1950 Author Organization [place] Address [facility] [place] [address] Care Team Providers Name Role Phone Ingrid Santana RN Unavailable Momo Forbes Primary Care Provider Reason for Visit Reason Comments Eval/Assessment LBA Encounter Details Date Type Department Care Team Description 02/09/2014 Infusion Therapy Specialty Infusion Finger, Migel Mac y replaced by transplant (Primary Dx); Visit and Procedure MD [facility] [address] [place] [address] 19 5 [facility] 2nd Floor [address] [phone] [place], [place] (Work[place] [phone] Social History Tobacco Use [...] Diego [place] Thank you for choosing [facility] ([facility]) for your transplant cares. The following [...] Bring Humulog Insulin Pen to your future [facility] appointments. 5) Return to [facility] tomorrow at 07:30 a.m We look forward in seeing you on your next appointment here at [facility]. Please don???t hesitate to callus at [phone] to reschedule any of your appointments or to speak with one of the [facility] registered nurses. It was a pleasure taking care of you today. Sincerely, MARC HERNANDEZ RN [facility] [address] [place] [address]. [place] [address] Coumadin Information: Keep Your Diet Steady Keep [...] 7:31 AM CDT Diego [place] came to [facility] today for a lab and assess following a Kidney transplant on 02/02/14. Discharge date: 02/08/14 sports marketing coordinator: Leandro Kahn Phone number patient can be reached at: [phone] Physical Assessment: See physical assessment located under [...] s/s insulin this morning/nor brought insulin to [facility] appt. I reviewed w/pt the need to monitor BG's QID and to [facility]. Last BM: yesterday, loose, pt stopped stool softeners. Pain: Incisional pain rated a 5 , declines pain meds at this time. Laboratory tests: Standard labs drawn. Plan of care for today: 1) Labs/Nausea/Orthostatic BP/MARGARET output reviewed with Dr Hernandes, orders: Increase Zofran to 8mg every 6-8 hours, MARGARET to remain in another day, Administer 1L of NS today, d/c pt from [facility] post 1L NS, return to [facility] tomorrow for LBA, No change in Prograf [...] and Phone numbers to call with concenrs (sports marketing coordinator, [address] and Main [facility]) Patient verbalized understanding and all questions answered. Drug level: Prograf level today reviewed with Dr Hernandes who gave orders to no change in dose. INR of 1.59 also reviewed w/Dr Hernandes who gave orders to increase Coumadin to 7.5mg QD. Patient was updated with this information and verbalized understanding. Discharge Plan Pt will follow up with [facility] tomorrow at 0730. Bring Humulog Insulin Pen to [facility] today (pt did not bring to today's appt). 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/Clinical Project Coordinator verbalized understanding, all questions answered: YES Discharged [...] Signature INR 1.59 (H) 0.86 - 1.14 [facility] LABS Specimen Anatomical Collection Method Collection Time Receive d Time (Source) Location / / Volume Laterality Blood specimen 02/09/2014 8:30 AM 014 (specimen) CDT 11:07 AM CDT Migel Merchant MD LAB - BLOOD ORDERABLES Performing Organization Address City/State/ZIP Code Phon e Number [facility] [address] [place], [place] [id number] [place] [address] LABS Tacrolimus level (02/09/2014 7:40 AM CDT) [facility] [place] [facility] gist Method Time Signature Tacrolimus Not Provided [facility] Last Dose [facility] LABS Tacrolimus 8.0 5.0 - [facility] Level 15.0 ug/L [facility] LABS Comment: Tacrolimus Reference Range [...] Organization Address City/State/ZIP Code Phon e Number [facility] [address] [place], [place] [phone] [place] [address] [facility] LABS (ABNORMAL) CBC with platelets differential (02/09/2014 7:40 AM CDT) Patholo gist Method Time Signature WBC 5.8 4.0 - [facility] 11.0 [facility] 10e9/L [place] LABS RBC Count 2.66 (L) 4.4 - 5.9 [facility] 10e12/L [facility] LABS Hemoglobin 8.2 (L) 13.3 - [facility] 17.7 g/dL [facility] LABS Hematocrit 24.4 (L) 40.0 - [facility] 53.0 % [facility] LABS MCV 92 78 - 100 [facility] fl [facility] LABS MCH 30.8 26.5 - [facility] 33.0 pg [facility] LABS MCHC 33.6 31.5 - [facility] 36.5 g/dL [facility] LABS RDW 14.6 10.0 - [facility] 15.0 % [facility] LABS Platelet Count 78 (L) 150 - 450 [facility] 10e9/L [facility] LABS Diff Method Automated [facility] Method [facility] LABS % Neutrophils 84.8 % [facility] LABS % Lymphocytes 5.2 % [facility] LABS % Monocytes 6.9 % [facility] LABS % Eosinophils 2.9 % [facility] % Basophils 0.0 % [facility] LABS % Immature 0.2 % [facility] Granulocytes [facility] LABS Absolute 4.9 1.6 - 8.3 [facility] Neutrophil 10e9/L [facility] LABS Absolute 0.3 (L) 0.8 - 5.3 [facility] Lymphocytes 10e9/L [facility] LABS Absolute 0.4 0.0 - 1.3 [facility] Monocytes 10e9/L [facility] LABS Absolute 0.2 0.0 - 0.7 [facility] Eosinophils 10e9/L [facility] LABS Absolute 0.0 0.0 - 0.2 [facility] Basophils 10e9/L [facility] LABS Abs Immature 0.0 0 - 0.4 [facility] Granulocytes 10e9/L [facility] LABS Specimen Anatomical Collection Method Collection Time Receive d Time (Source) Location / / Volume Laterality Blood specimen 02/09/2014 7:40 AM 014 7:49 (specimen) CDT AM CDT Migel Merchant MD LAB - BLOOD ORDERABLES Performing Organization Address City/State/ZIP Code Phon e Number [facility] [address] [place], [place] [phone] [place] [address] LABS (ABNORMAL) Phosphorus (02/09/2014 7:40 AM CDT) athologist Signature Phosphorus 2.0 (L) 2.5 - 4.5 [facility] mg/dL CAMPUS LABS Specimen Anatomical Collection Method Collection Time Receive d Time (Source) Location / / Volume Laterality Blood specimen 02/09/2014 7:40 AM 014 7:49 (specimen) CDT AM CDT Migel Merchant MD LAB - BLOOD ORDERABLES Performing Organization Address City/[facility] Phon e Number [facility] [address] LABS Magnesium (02/09/2014 7:40 AM CDT) athologist Signature Magnesium 1.9 1.6 - 2.3 [facility] mg/dL [place] LABS Specimen Anatomical Collection Method Collection Time Receive d Time (Source) Location / / Volume Laterality Blood specimen 02/09/2014 7:40 AM 014 7:49 (specimen) CDT AM CDT Migel Merchant MD LAB - BLOOD ORDERABLES Performing Organization Address City/[facility] Code Phon e Number [facility] [address] LABS (ABNORMAL) Basic metabolic panel (02/09/2014 7:40 AM CDT) [facility] [place] [facility] gist Method Time Signature Sodium 145 (H) 133 - 144 [facility] mmol/L [facility] LABS Potassium 4.5 3.4 - 5.3 [facility] mmol/L [facility] LABS Chloride 110 (H) 94 - 109 [facility] mmol/L [facility] LABS Carbon Dioxide 24 20 - 32 [facility] mmol/L [facility] LABS Anion Gap 10 6 - 17 [facility] mmol/L [facility] LABS Glucose 137 (H) 60 - 99 [facility] mg/dL [facility] LABS Urea Nitrogen 48 (H) 7 - 30 [facility] mg/dL [facility] LABS Creatinine 2.02 (H) 0.66 - [facility] 1.25 mg/dL [facility] LABS GFR Estimate 34 (L) >60 [facility] mL/min/1.7 [place] m2 CAMPUS LABS GFR Estimate If 41 (L) >60 [facility] Black mL/min/1.7 [place] [address] CAMPUS LABS Calcium 9.2 8.5 - 10.4 [facility] mg/dL [facility] LABS Specimen Anatomical Collection Method Collection Time Receive d Time (Source) Location / / Volume Laterality Blood specimen 02/09/2014 7:40 AM 014 7:49 (specimen) CDT AM CDT Migel Merchant MD LAB - BLOOD ORDERABLES Performing Organization Address City/State/ZIP Code Phon e Number [address] [address] [facility] LABS documented in this encounter [...] dose documented in this encounter Care Teams Formula Maker Relationship Specialty Start Date End Date Momo Forbes PCP - General Family Practice 01/02/14 [facility] [address] [place] [address] Ingrid Santana, RN Registered Nurse Transplant 02/10/12 10/01/15 documented as of this encounter
--- OUTSIDE RECORDS SUMMARY | 2022-04-07 11:11 | XMS_ITS | Encounter Summary ---
:1950 Author Organization [place] Address [facility] [place] [address] Care Team Providers Name Role Phone Ingrid Santana RN Unavailable Momo Forbes Primary Care Provider Reason for Visit Reason Comments Eval/Assessment LBA Encounter Details Date Type Department Care Team Description 02/11/2014 Office Visit Specialty Infusion Kaitlynn Leon, Complica tion of transplanted kidney (Primary Dx); and Procedure Center Anemia; [facility] HTN (hy pertension); [facility] Immunosuppression (H); [address]nd Floor [address] Hypophosphatemia 6 [facility] [address] [place], [place] [phone] [address] (Work) [phone] Social History Tobacco Use Types Packs/Day Years [...] Years of Education: 14 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 Discharge: 02/08/2014 Using Medcard: Yes Med review: Went over all meds and dosing with patient and Tete. Went over Prograf and Cellcept side effects. Medication questions/concerns: Patient requested that we transfer 4 rx's (to profile) from local pharmacy to us here. Pt wants us to get Zofran filled for pear picker 02/12- new dose of 2 Q6-8H PRN. Using medbox: Yes Viewed DVD: Didn't bring up Pain: #2-3, feels good, rarely using Oxycodone Other Concerns: none No further questions for this pharmacist. Yi Londono [facility] [phone] documented in this encounter Plan of Treatment [...] Signature INR 2.28 (H) 0.86 - 1.14 [facility] LABS Specimen Anatomical Collection Method Collection Time Receive d Time (Source) Location / / Volume Laterality 02/11/2014 9:30 AM 4 9:41 CDT AM CDT Kaitlynn Leon MD LAB - BLOOD ORDERABLES Performing Organization Address City/State/ZIP Code Phon e Number [facility] [address] [place], [place] [phone] [place] [address] LABS documented in this encounter Visit Diagnoses Diagnosis Complication of transplanted kidney - Pr imary Complications of transplanted kidney Anemia Anemia, unspecified HTN (hypertension) Unspecified essential hypertension Immunosuppression (H) Unspecified disorder of immune mechanism Hypophosphatemia Disorders of phosphorus metabolism documented in this encounter Care Teams Acupuncturist Relationship Specialty Start Date End Date Momo Forbes PCP - General Family Practice 01/02/14 [facility] [address] [place] [address] Ingrid Santana, RN Registered Nurse Transplant 02/10/12 10/01/15 documented as of this encounter
--- OUTSIDE RECORDS SUMMARY | 2022-04-07 11:11 | XMS_ITS | Encounter Summary ---
:1950 Author Organization [place] Address [facility] [place] [address] Care Team Providers Name Role Phone Ingrid Santana RN Unavailable Momo Forbes Primary Care Provider Reason for Visit Reason Comments Eval/Assessment LBA Encounter Details Date Type Department Care Team Description 02/12/2014 Infusion Therapy Specialty Infusion Finger, Migel Mac y replaced by Visit and Procedure MD Nathan transplant (Primary Center [address] [place] [address] Dx) [facility] 19 5 n [facility] 2nd Floor [address] [phone] [place], [place] (Work) [phone] Social History Tobacco Use [...] Dear Diego [place] Thank you for choosing [facility] ([facility]) for your transplant cares. The following information is a summary of our appointment as well as important reminders. Additional information: We will see you on for labs & assessment. We look forward in seeing you on your next appointment here at [facility]. Please don???t hesitate to callus at [phone] to reschedule any of your appointments or to speak with one of the [facility] registered nurses. It was a pleasure taking care of you today. Sincerely, Gladis Olvera, BOGDAN [facility] [address] [place] [address]. [place] [id number] January 2014Tuesday 1 2 3 4 5 6 7 8 9 10 11 12 13 14 Admission 12:55 PM Migel Merchant MD [address] [facility] [place] (Discharge: 02/08/2014) XR CHEST 2 VIEWS 1:55 PM (10 min.) [email or web address], Radiology TRANSPLANT KIDNEY RECIPIENT DONOR 4:00 PM Migel Merchant MD UU OR XR CHEST PORT 2 VIEWS 11:10 PM (15 min.) [facility]uxrph1 [facility], Radiology 15 US RENAL TRANSPLANT 7:50 AM (50 min.) Uuus2 [facility], Ultrasound 16 IP EVALUATION 6:00 AM (60 min.) Angela Wilder, PT [facility], Physical Therapy UU TRANSPLANT MEDICATIONS 11:00 AM (120 min.) Josseline Almendarez RN [facility] Patient Learning [facility] UU TRANSPLANT FOLLOW-UP CARE 1:00 PM (120 min.) Josseline Almendarez RN [facility], Patient Learning [facility] ECH LIMITED 3:35 PM (60 min.) Uuechipr1 [facility], Echocardiography 17 IP TREATMENT 5:30 AM (30 min.) Roderick Lawson, PT [facility], Physical Therapy 18 IP TREATMENT 5:30 AM (30 min.) Yesenia Rodriguez, PT [facility], Physical Therapy 19 IP TREATMENT 5:30 AM (30 min.) Reina Kenny, PT [facility], Physical Therapy US RENAL 11:15 AM (60 min.) Uuus2 [facility], Ultrasound 20 IP TREATMENT 5:30 AM (30 min.) Reina Kenny, PT [facility], Physical Therapy UU TRANSPLANT MEDICATIONS 11:00 AM (120 min.) Em Mohan RN [facility] Patient Learning [facility] [address] [facility] NEW TRANSPLANT 7:00 AM (360 min.) [facility] Sipc Chair 9 Specialty Infusion and Procedure Center [address] [facility] NEW TRANSPLANT 7:00 AM (360 min.) [facility] Sip[facility] Chair 11 [facility] Procedure Center [address] [facility] NEW TRANSPLANT 7:00 AM (360 min.) [facility] Sip Chair 12 [facility] In[facility] KIDNEY TX DISCHARGE 9:00 AM (30 min.) Kaitlynn Leon MD [facility] US RENAL TRANSPLANT 2:00 PM (60 min.) [address] [facility] NEW TRANSPLANT 7:00 AM (360 min.) [facility] Sipc Bed 14 Specialty Infusion [facility] Procedure Center [facility] SIPC RETURN 9:00 AM (30 min.) Kaitlynn Leon MD [facility] [address] [facility] SIPC PROCEDURE 7:00 AM (60 min.) [facility] Sipc Chair 9 Specialty Infusion [facility] Procedure [facility] SIPC RETURN 8:00 AM (30 min.) Kaitlynn Leon MD [facility] 27 [address] [facility] NEW 9:00 AM (30 min.) [facility] Cvc Consult [facility] Physicians Heart [facility] KIDNEY POST OP 1:45 PM [...] 4:27 PM CDT Diego [place] came to [facility] today for a lab and assess following a Kidney transplant on 02/02/14. Discharge date: 02/08/14 waste reduction coordinator: Leandro Kahn Phone number patient can be reached at: [phone] Physical Assessment: See physical assessment located under Document Flowsheets. Incision site: with modesta & slight ecchymosis. Dry dressing changed. Lines: MARGARET drain to bulb suction is draining sero sanguinous fluid. Continues to drain more than 30 ml/day. Pt will have Tuesday off from [facility] and will return for LBA. Gibbs: N/A [...] of care for today: Pt presented to [facility] for labs and assessment. Labs drawn, reviewed with Dr. Leon. Oral phosphorus tablets ordered. Coumadin dose decreased to 5 mg every evening. Pt will have Tuesday off, return and will start with [facility] on TuesdayFebruary 15. Pt's MARGARET remains [...] Discharge Plan Pt will follow up with [facility] on 02/14 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/Electrotype Molder verbalized understanding, all questions answered: YES Discharged [...] Signature INR 2.64 (H) 0.86 - 1.14 [facility] LABS Specimen Anatomical Collection Method Collection Time Receive d Time (Source) Location / / Volume Laterality Blood specimen 02/12/2014 7:41 AM 014 7:43 (specimen) CDT AM CDT Kaitlynn Leon MD LAB - BLOOD ORDERABLES Performing Organization Address City/State/ZIP Code Phon e Number [facility] [address] [place] [address] [facility] LABS Tacrolimus level (02/12/2014 7:41 AM CDT) [facility] gist Method Time Signature Tacrolimus Last 02/11/14 [facility] Dose 1900 [facility] LABS Tacrolimus 8.4 5.0 - [facility] Level 15.0 ug/L [facility] LABS Comment: Tacrolimus Reference [...] Organization Address City/State/ZIP Code Phon e Number [address] [address] [place] [facility] (ABNORMAL) CBC with platelets differential (02/12/2014 7:41 AM CDT) [facility] gist Method Time Signature WBC 5.0 4.0 - [facility] 11.0 [facility] 10e9/L CAMPUS LABS RBC Count 2.41 (L) 4.4 - 5.9 [facility] 10e12/L [facility] LABS Hemoglobin 7.4 (L) 13.3 - [facility] 17.7 g/dL [facility] LABS Hematocrit 22.3 (L) 40.0 - [facility] 53.0 % [facility] LABS MCV 93 78 - 100 [facility] fl [facility] LABS MCH 30.7 26.5 - [facility] 33.0 pg [facility] LABS MCHC 33.2 31.5 - [facility] 36.5 g/dL [facility] LABS RDW 14.5 10.0 - [facility] 15.0 % [facility] LABS Platelet Count 95 (L) 150 - 450 [facility] 10e9/L [facility] LABS Diff Method Automated [facility] Method [facility] LABS % Neutrophils 85.2 % [facility] LABS % Lymphocytes 5.6 % [facility] LABS % Monocytes 4.6 % [facility] LABS % Eosinophils 4.2 % [facility] LABS % Basophils 0.2 % [facility] LABS % Immature 0.2 % [facility] Granulocytes [facility] LABS Absolute 4.3 1.6 - 8.3 [facility] Neutrophil 10e9/L [facility] LABS Absolute 0.3 (L) 0.8 - 5.3 [facility] Lymphocytes 10e9/L [facility] LABS Absolute 0.2 0.0 - 1.3 [facility] Monocytes 10e9/L [facility] LABS Absolute 0.2 0.0 - 0.7 [facility] Eosinophils 10e9/L [facility] LABS Absolute 0.0 0.0 - 0.2 [facility] Basophils 10e9/L [facility] LABS Abs Immature 0.0 0 - 0.4 [facility] Granulocytes 10e9/L [facility] LABS Specimen Anatomical Collection Method Collection Time Receive d Time (Source) Location / / Volume Laterality Blood specimen 02/12/2014 7:41 AM 014 7:43 (specimen) CDT AM CDT Naim S Edward MD LAB - BLOOD ORDERABLES Performing Organization Address City/State/ZIP Code Phon e Number [facility] [address] LABS (ABNORMAL) Phosphorus (02/12/2014 7:41 AM CDT) athologist Signature Phosphorus 1.7 (L) 2.5 - 4.5 [facility] mg/dL [place] LABS Specimen Anatomical Collection Method Collection Time Receive d Time (Source) Location / / Volume Laterality Blood specimen 02/12/2014 7:41 AM 014 7:43 (specimen) CDT AM CDT Kaitlynn Leon MD LAB - BLOOD ORDERABLES Performing Organization Address City/State/ZIP Code Phon e Number [facility] 500 [place], [place] [id number] [place] [address] LABS Magnesium (02/12/2014 7:41 AM CDT) athologist Signature Magnesium 1.8 1.6 - 2.3 [facility] mg/dL [place] LABS Specimen Anatomical Collection Method Collection Time Receive d Time (Source) Location / / Volume Laterality Blood specimen 02/12/2014 7:41 AM 014 7:43 (specimen) CDT AM CDT Kaitlynn Leon MD LAB - BLOOD ORDERABLES Performing Organization Address City/State/ZIP Code Phon e Number [facility] [address] [place], [place] [id number] [place] [address] LABS (ABNORMAL) Basic metabolic panel (02/12/2014 7:41 AM CDT) [facility] gist Method Time Signature Sodium 142 133 - 144 [facility] mmol/L [facility] LABS Potassium 4.9 3.4 - 5.3 [facility] mmol/L [facility] LABS Chloride 113 (H) 94 - 109 [facility] mmol/L [facility] LABS Carbon Dioxide 21 20 - 32 [facility] mmol/L [facility] LABS Anion Gap 9 6 - 17 [facility] mmol/L [facility] LABS Glucose 127 (H) 60 - 99 [facility] mg/dL [facility] LABS Urea Nitrogen 24 7 - 30 [facility] mg/dL [facility] LABS Creatinine 1.92 (H) 0.66 - [facility] 1.25 mg/dL [facility] LABS GFR Estimate 36 (L) >60 [facility] mL/min/1.7 [place] m2 CAMPUS LABS GFR Estimate If 43 (L) >60 [facility] Black mL/min/1.7 [place] m2 CAMPUS LABS Calcium 8.9 8.5 - 10.4 [facility] mg/dL [facility] LABS Specimen Anatomical Collection Method Collection Time Receive d Time (Source) Location / / Volume Laterality Blood specimen 02/12/2014 7:41 AM 014 7:43 (specimen) CDT AM CDT Kaitlynn Leno MD LAB - BLOOD ORDERABLES Performing Organization Address City/State/ZIP Code Phon e Number [facility] [address] [place] [address] [facility] LABS documented in this [...] after. documented in this encounter Care Teams Precision Millwright Relationship Specialty Start Date End Date Momo Forbes PCP - General Family Practice 01/02/14 [facility] [address] [place] [address] Ingrid Santana, RN Registered Nurse Transplant 02/10/12 10/01/15 documented as of this encounter
--- OUTSIDE RECORDS SUMMARY | 2022-04-07 11:11 | XMS_ITS | Encounter Summary ---
:1950 Author Organization [place] Address [facility] [place] [address] Care Team Providers Name Role Phone Ingrid Santana RN Unavailable Momo Forbes Primary Care Provider Reason for Visit Reason Comments Eval/Assessment LBA Encounter Details Date Type Department Care Team Description 02/11/2014 Infusion Therapy Specialty Infusion Finger, Migel Mac y replaced by Visit and Procedure MD Nathan transplant (Primary Center [address] [place] [address] Dx) [facility] 19 5 [address] [facility] 2nd Floor [address] [phone] [place], [place] (Work) [phone] Social History Tobacco Use [...] Dear Diego Guthrie Thank you for choosing [facility] ([facility]) for your transplant cares. The following [...] regarding the result at your appointment in [facility] tomorrow. We look forward in seeing you on your next appointment here at [facility]. Please don???t hesitate to callus at [phone] to reschedule any of your appointments or to speak with one of the [facility] registered nurses. It was a pleasure taking care of you today. Sincerely, Gladis Olvera, RN [facility] [address] [place] [address] documented in this encounter Progress Notes Gladis Olvera RN - 02/11/2014 8:43 AM CDT Diego Guthrie came to [facility] today for a lab and assess following a Kidney transplant on 02/02/14. Discharge date: 02/08/14 group rooms coordinator: Leandro Kahn Phone number patient can be reached at: [phone] Physical Assessment: See physical assessment located under Document Flowsheets. Incision site: Dry dressing with modesta. Dressing changed. Small amt oozing, Small amt ecchymosis. Pt instructed on signs/symptoms of infection. Some swelling under incision, pt has known hematoma andwill have a renal ultrasound today at 2pm. Lines: MARGARET drain to bulb suction, serosanguinous drainage. 20 ml at [facility] appointment today. Gibbs: n/a Urine clarity: clear per patient report Hydration: discussed drinking 2-3 L daily Nutrition: Pt states appetite is improving Last BM: 02/10/14 evening Pain: 2 at rest, 5 with activity. Pain adequately controlled with home medications Laboratory tests: Standard labs drawn. Plan of care for today: Pt presents to [facility] for Labs & Assessment following Kid Txp on 02/02/14. Pt's creatinine up to 1.97 today, but ok per Dr. Leon considering the complications with transplant. Hgb 7.4 and pt c/o slight fatigue. Discussed with Dr. Leon and will hold off on a transfusion for now, but will continue to monitor hgb at [facility] appointments over the next 2 days. INR 2.23, EKG obtained and pt found to be in Normal Sinus Rhythm. Pt will remain on coumadin for now and will follow up with a secondary social studies teacher near [facility]. Continue daily INRs while pt is coming to [facility]. Pt's MARGARET continues to drain more [...] Discharge Plan Pt will follow up with [facility] tomorrow. 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/Software Tools Build Engineer verbalized understanding, all questions answered: YES Discharged [...] Results Tacrolimus level (02/11/2014 7:40 AM CDT) [facility] gist Method Time Signature Tacrolimus Last 02/10/14 [facility] Dose [address] [facility] LABS Tacrolimus 12.2 5.0 - [facility] Level 15.0 ug/L [facility] Comment: Tacrolimus Reference Range Kidney [...] Phon e Number [facility] [address] [place] [address] [facility] LABS (ABNORMAL) CBC with platelets differential (02/11/2014 7:40 AM CDT) [facility] gist Method Time Signature WBC 4.4 4.0 - [facility] 11.0 [facility] 10e9/L [place] [facility] RBC Count 2.39 (L) 4.4 - 5.9 [facility] 10e12/L [facility] Hemoglobin 7.4 (L) 13.3 - [facility] 17.7 g/dL [facility]S Hematocrit 22.1 (L) 40.0 - [facility] 53.0 % [facility] MCV 93 78 - [address] [facility] [address] [facility] MCH 31.0 26.5 - [facility] 33.[address] [facility]S MCHC 33.5 31.5 - [facility] 36.5 g/dL [facility] RDW 14.7 10.0 - [facility] 15.0 % [facility] Platelet Count 83 (L) 150 - 450 [facility] 10e9/L [facility] Diff Method Automated [facility] Method [facility] % Neutrophils 80.4 % [facility] % Lymphocytes 8.2 % [facility] % Monocytes 5.2 % [facility] % Eosinophils 5.7 % [facility] % Basophils 0.0 % [facility] % Immature 0.5 % [facility] Granulocytes [facility] Absolute 3.5 1.6 - 8.3 [facility] [...] Phon e Number [facility] [address] LABS (ABNORMAL) Phosphorus (02/11/2014 7:40 AM CDT) P athologist Signature Phosphorus 1.9 (L) 2.5 - 4.5 COUNT INCLUDES THE [facility] mg/dL CAMPUS LABS Specimen Anatomical Collection Method Collection Time Receive d Time (Source) Location / / Volume Laterality Blood specimen 02/11/2014 7:40 AM 014 7:41 (specimen) CDT AM CDT Kaitlynn Leon MD LAB - BLOOD ORDERABLES Performing Organization Address City/State/ZIP Code Phon e Number [facility] [address] LABS Magnesium (02/11/2014 7:40 AM CDT) P athologist Signature Magnesium 1.9 1.6 - 2.3 COUNT INCLUDES [facility] mg/dL CAMPUS LABS Specimen Anatomical Collection Method Collection Time Receive d Time (Source) Location / / Volume Laterality Blood specimen 02/11/2014 7:40 AM 014 7:41 (specimen) CDT AM CDT Kaitlynn Leon MD LAB - BLOOD ORDERABLES Performing Organization Address City/State/ZIP Code Phon e Number [facility] [address] LABS (ABNORMAL) Basic metabolic panel (02/11/2014 7:40 AM CDT) [facility] Method Time Signature Sodium 142 133 - 144 [facility] mmol/L [facility]S Potassium 5.4 (H) 3.4 - 5.3 [facility] mmol/L [facility]S Chloride 113 (H) 94 - 109 [facility] mmol/L [facility]S Carbon Dioxide 22 20 - 32 [facility] mmol/L [facility]S Anion Gap 8 6 - 17 [facility] mmol/L [facility]S Glucose 155 (H) 60 - 99 [facility] mg/dL [facility]S Urea Nitrogen 31 (H) 7 - 30 [facility] mg/dL [facility]S Creatinine 1.97 (H) 0.66 - [facility] 1.25 mg/dL [facility] LABS GFR Estimate 35 (L) >60 [facility] mL/min/1.7 [place] m2 [place] LABS GFR Estimate If 42 (L) >60 [facility] Black mL/min/1.7 [place] m2 [place] LABS Calcium 9.1 8.5 - 10.4 [facility] mg/dL [facility] LABS Specimen Anatomical Collection Method Collection Time Receive d Time (Source) Location / / Volume Laterality Blood specimen 02/11/2014 7:40 AM 014 7:41 (specimen) CDT AM CDT Kaitlynn Leon MD LAB - BLOOD ORDERABLES Performing Organization Address City/State/ZIP Code Phon e Number [address] [address] [facility] LABS documented in this encounter Visit Diagnoses Diagnosis Kidney replaced by transplant - Primary documented in this encounter Care Teams Life Skills Coach Relationship Specialty Start Date End Date Momo Forbes PCP - General Family Practice 01/02/14 [facility] [address] [place] [address] Ingrid Santana, RN Registered Nurse Transplant 02/10/12 10/01/15 documented as of this encounter
--- OUTSIDE RECORDS SUMMARY | 2022-04-07 11:11 | XMS_ITS | Encounter Summary ---
:1950 Author Organization [place] Address [facility] [place] [address] Care Team Providers Name Role Phone Ingrid Santana RN Unavailable Momo Forbes Primary Care Provider Reason for Visit Reason Comments Eval/Assessment s/p kidney transplant 8days ago Encounter Details Date Type Department Care Team Description 02/10/2014 Infusion Therapy Specialty Infusion Finger, Migel Mac y replaced by Visit and Procedure MD Nathan transplant (Primary Center [address] [place] [address]) [facility] [address] 5 [address] Building 2nd [address] [phone] [place], [place] (Work) [phone] Social History Tobacco Use [...] 10:40 AM CDT Diego Guthrie came to [facility] today for a lab and assess 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 Discharge date: 02/08/14 hospitality coordinator: Leandro Kahn RN Phone number patient can be reached at: [phone] (girlfriend's cell) Physical Assessment: See physical assessment located under Document Flowsheets. Incision site: stapled, leaking tiny amount clear pink/pale yellow fluid from mid incision (1.5inch area on dressing from 3hours ago) covered with ABD Lines: MARGARET rlq; 30cc out last tamara; 10cc out overnite;; lite pink clear fluid Gibbs: na states is not having voiding difficulty Urine clarity: not asked Hydration: states he [id number] water yesterday but does not like that [...] Discharge Plan Pt will follow up with [facility] lab/assess in am 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/Bog Worker verbalized understanding, all questions answered: YES Discharged [...] Results Tacrolimus level (02/10/2014 8:37 AM CDT) [facility] Method Time Signature Tacrolimus Not Provided [facility] Last Dose [facility] Tacrolimus 6.8 5.0 - [facility] Level 15.0 ug/L [facility] LABS Comment: Tacrolimus Reference Range Kidney Transplant [...] Phon e Number [facility] [address] [place] [address] [facility] LABS (ABNORMAL) CBC with platelets differential (02/10/2014 8:37 AM CDT) Component Value Ref Test Analysis Performed At [facility] gist Range Method Time Signature WBC 5.5 4.0 - [facility] 11.0 [place] LABS 10e9/L RBC Count 2.53 (L) 4.4 - [facility] 5.9 CAMPUS LABS 10e12/L Hemoglobin 7.9 (L) 13.3 - [facility] 17.7 CAMPUS LABS g/dL Hematocrit 23.2 (L) 40.0 - [facility] 53.0 % CAMPUS LABS MCV 92 78 - 100 [facility] fl CAMPUS LABS MCH 31.2 26.5 - [facility] 33.0 pg CAMPUS LABS MCHC 34.1 31.5 - [facility] 36.5 CAMPUS LABS g/dL RDW 14.5 10.0 - [facility] 15.0 % CAMPUS LABS Platelet Count 89 (L) 150 - [facility] 450 CAMPUS LABS 10e9/L Diff Method Manual [...] Code Phon e Number [facility] [id number] DIFFERENTIAL [facility] LABS (ABNORMAL) Phosphorus (02/10/2014 8:37 AM CDT) P athologist Signature Phosphorus 1.9 (L) 2.5 - 4.5 [facility] mg/dL CAMPUS LABS Specimen Anatomical Collection Method Collection Time Receive d Time (Source) Location / / Volume Laterality Blood specimen 02/10/2014 8:37 AM 014 8:38 (specimen) CDT AM CDT Migel Merchant MD LAB - BLOOD ORDERABLES Performing Organization Address City/State/[facility] Code Phon e Number [facility] [address] LABS Magnesium (02/10/2014 8:37 AM CDT) P athologist Signature Magnesium 2.0 1.6 - 2.3 [facility] UNIVERSITY mg/dL CAMPUS LABS Specimen Anatomical Collection Method Collection Time Receive d Time (Source) Location / / Volume Laterality Blood specimen 02/10/2014 8:37 AM 014 8:38 (specimen) CDT AM CDT Migel Merchant MD LAB - BLOOD ORDERABLES Performing Organization Address City/[facility]/ZIP Code Phon e Number [facility] [address] LABS (ABNORMAL) Basic metabolic panel (02/10/2014 8:37 AM CDT) Patholo gist Method Time Signature Sodium 144 133 - 144 [facility] mmol/L [facility] LABS Potassium 4.8 3.4 - 5.3 [facility] mmol/L [facility] LABS Chloride 111 (H) 94 - 109 [facility] mmol/L [facility] LABS Carbon Dioxide 22 20 - 32 [facility] mmol/L [facility] LABS Anion Gap 10 6 - 17 [facility] mmol/L [facility] LABS Glucose 128 (H) 60 - 99 [facility] mg/dL [facility] LABS Urea Nitrogen 34 (H) 7 - 30 [facility] mg/dL [facility] LABS Creatinine 1.80 (H) 0.66 - [facility] 1.25 mg/dL [facility] LABS GFR Estimate 38 (L) >60 [facility] mL/min/1.7 [facility] m2 [facility] LABS GFR Estimate If 46 (L) >60 [facility] Black mL/min/1.7 [place] [address] CAMPUS LABS Calcium 9.1 8.5 - 10.4 [facility] mg/dL [facility] LABS Specimen Anatomical Collection Method Collection Time Receive d Time (Source) Location / / Volume Laterality Blood specimen 02/10/2014 8:37 AM 014 8:38 (specimen) CDT AM CDT Migel Merchant MD LAB - BLOOD ORDERABLES Performing Organization Address City/State/ZIP Code Phon e Number [facility] [address] [place] [address] [facility] LABS documented in this encounter Visit Diagnoses Diagnosis Kidney replaced by transplant - Primary documented in this encounter Care Teams Bottle Packing Machine Cleaner Relationship Specialty Start Date End Date Momo Forbes PCP - General Family Practice 01/02/14 [facility] [address] [place] [address] Ingrid Santana, RN Registered Nurse Transplant 02/10/12 10/01/15 documented as of this encounter
--- OUTSIDE RECORDS SUMMARY | 2022-04-07 11:11 | XMS_ITS | Encounter Summary ---
:1950 Author Organization [place] Address [address] [place] [address]. [place] [address] Care Team Providers Name Role Phone Ingrid Santana RN Unavailable Momo Forbes Primary Care Provider Reason for Visit Reason Onset Date Comments Refill Request 02/15/2014 Encounter Details Date Type Department Care Team Description 02/15/2014 Refill Nephrology Shiva Kahn RN Refill Request 2nd Floor, Clinic 2A [facility] Sanders [place] [phone] [place] [address] [place] [phone] Social History Tobacco Use Types Packs/Day [...] on filedocumented in this encounter Care Teams Airport Operations Crew Member Relationship Specialty Start Date End Date Momo Forbes PCP - General Family Practice 01/02/14 [facility] [address] [place], [place] [id number] Ingrid Santana, RN Registered Nurse Transplant 02/10/12 10/01/15 documented as of this encounter
--- OUTSIDE RECORDS SUMMARY | 2022-04-07 11:11 | XMS_ITS | Encounter Summary ---
:1950 Author Organization [place] Address [address] [place] [address]. [place] [address] Care Team Providers Name Role Phone Ingrid Santana RN Unavailable Momo Forbes Primary Care Provider Reason for Visit Reason Onset Date Comments Refill Request 02/11/2014 Encounter Details Date Type Department Care Team Description 02/11/2014 Refill Nephrology Isa Ly RN Refill Request 2nd Floor, Clinic 2A [facility] [address] [place] [address] [phone] Social History Tobacco Use Types Packs/Day [...] documented in this encounter Care Teams Customer Retention Representative Relationship Specialty Start Date End Date Momo Forbes PCP - General Family Practice 01/02/14 [facility] [address] [place], [place] [id number] Ingrid Santana, RN Registered Nurse Transplant 02/10/12 10/01/15 documented as of this encounter
--- OUTSIDE RECORDS SUMMARY | 2022-04-07 11:11 | XMS_ITS | Encounter Summary ---
:1950 Author Organization [place] Address [facility] [place] [address] Care Team Providers Name Role Phone Ingrid Santana RN Unavailable Momo Forbes Primary Care Provider Reason for Referral CV Cardio consult - Closed Specialty Diagnoses / Procedures Referred By Contact Refer red To Contact Diagnoses Atrial fibrillation (H) Kaitlynn Leon MD [facility] [place] [address] [place] [address] Fax: Referral ID Status Reason Start Date Expiration Date Visits Requ ested Visits Authorized [id number] Closed 02/12/2014 08/11/2014 1 1 Reason for Visit Reason Comments RECHECK Encounter Details Date Type Department Care Team Description 02/12/2014 Office Visit Specialty Infusion Kaitlynn Leon, S/P liborio ey transplant (Primary Dx); and Procedure Center Atrial fibrillation (H); Arpita [facility] Hypopho sphatemia; Building [place] Nausea; 2nd Floor [address] Immunosuppression (H) [address] [facility] [address] [place], [place] [phone] [address] (Work) [phone] Social History Tobacco Use Types Packs/Day Years [...] Diego Guthrie Thank you for choosing [facility] ([facility]) for your transplant cares. The following information is a summary of our appointment as well as important reminders. Please make sure your phone is available today because I will call to update you with your anti-rejection drug levels and possibly make changes to your anti- rejection dosages. Additional information: -Decrease your coumadin dose to 5 mg every evening -Please return to [facility] on for Labs & assessment -Call us or Leandro Kahn with any questions. -Your Home Care Nurse should begin visits on TuesdayFebruary 14. If you do not hear from them by Tuesday morning, try to reach them at [phone]. We look forward in seeing you on your next appointment here at [facility]. Please don???t hesitate to callus at [phone] to reschedule any of your appointments or to speak with one of the [facility] registered nurses. It was a pleasure taking care of you today. Sincerely, Gladis Olvera RN [facility] - Clinic [address] [place] [address]. 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 [address] [place] [address] Ingrid Santana, RN Registered Nurse Transplant 02/10/12 10/01/15 documented as of this encounter
--- OUTSIDE RECORDS SUMMARY | 2022-04-07 11:11 | XMS_ITS | Encounter Summary ---
:1950 Author Organization [place] Address [facility] [place] [address] Care Team Providers Name Role Phone Ingrid Santana RN Unavailable Momo Forbes Primary Care Provider Reason for Visit Reason Comments Eval/Assessment LBA Encounter Details Date Type Department Care Team Description 02/14/2014 Office Visit Specialty Infusion Edward, Naim S, Kidney r eplaced by transplant (Primary Dx); and Procedure Center Immunosuppression (H); Arpita [facility] Hyperka lemia; Building [place] Hypophosphatemia; [address]nd Floor [address] Atrial fibrillation (H); [address] [place], [place]; [place] [address] HTN (hypertension) [place], [place] [phone] [address] (Work) [phone] Social History Tobacco Use Types Packs/Day Years [...] Years of Education: 14 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
--- OUTSIDE RECORDS SUMMARY | 2022-04-07 11:11 | XMS_ITS | Encounter Summary ---
:1950 Author Organization [place] Address [facility] [place] [address] Care Team Providers Name Role Phone Ingrid Santana RN Unavailable Momo Forbes Primary Care Provider Encounter Details Date Type Department Care Team Description 02/11/2014 Radiant Appointment [facility] 1st Floor, Clinic 1D [place], [place] [address] Social History Tobacco Use Types Packs/Day Years [...] on filedocumented in this encounter Care Teams Tracer Bullet Charging Machine Operator Relationship Specialty Start Date End Date Momo Forbes PCP - General Family Practice 01/02/14 [facility] [address] [place] [address] Ingrid Santana RN Registered Nurse Transplant 02/10/12 10/01/15 documented as of this encounter
--- OUTSIDE RECORDS SUMMARY | 2022-04-07 11:12 | XMS_ITS | Encounter Summary ---
:1950 Author Organization [place] Address [facility] [place] [address] Care Team Providers Name Role Phone Ingrid Santana RN Unavailable Momo Forbes Primary Care Provider Encounter Details Date Type Department Care Team Description 02/02/2014 Results Only LABORATORY RESULTS Migel Merchant MD [address] [place] [address] (Wo rk) Social History Tobacco Use [...] T/B Crossmatch Allo (02/02/2014 6:51 PM CDT) [facility] Method Time Signature Crossmatch Donor:[id number], ?Crossmatch Date:02/02/2014 HISTOTRAC Result (Note) Serum Date [...] - IMMUNOLOGY ORDERABLES Performing Organization Address City/State/ZIP [facility] Phon e Number [facility] Immunology/Histocompatabil [place], [place] [address] ity [facility] [address] Building, Room 3-580 HISTOTRAC documented in this encounter Visit Diagnoses Not on filedocumented in this encounter Care Teams Fisherman Helper Relationship Specialty Start Date End Date Momo Forbes PCP - General Family Practice 01/02/14 [facility] [address] [place] [address] Ingrid Santana, RN Registered Nurse Transplant 02/10/12 10/01/15 documented as of this encounter
--- OUTSIDE RECORDS SUMMARY | 2022-04-07 11:12 | XMS_ITS | Encounter Summary ---
:1950 Author Organization [facility] Address [address] [place] [address]. [place] [address] Care Team Providers Name Role Phone Ingrid Santana RN Unavailable Momo Forbes Primary Care Provider Reason for Referral Home Health Therapies & Aides Specialty Diagnoses / Procedures Referred By Contact Refer red To Contact Adeline Diaz MD [place] [phone] Referral ID Status Reason Start Date Expiration Date Visits Requ ested Visits Authorized ome Health Therapies & Aides Specialty Diagnoses / Procedures Referred By Contact Gary phelps To Contact Adeline Diaz MD [place] [phone] Referral ID Status Reason Start Date Expiration Date Visits Requ ested Visits Authorized ome Health Therapies & Aides Specialty Diagnoses / Procedures Referred By Contact Gary phelps To Contact [facility] [address] [place] [address] [phone] Referral ID Status Reason Start Date Expiration Date Visits Requ ested Visits Authorized Reason for Visit Auth/Cert - Closed Specialty Diagnoses / Procedures Referred By Pippa phelps To Contact Med Surg Diagnoses end stage renal disease dialysis End stage renal failure on dialysis Renal Failure Uu U7a Procedures TRANSPLANT KIDNEY RECIPIENT DONOR [address] [place] [address] Phone: Referral ID Status Reason Start Date Expiration Date Visits Requ ested Visits Authorized [id number] Closed 02/04/2014 08/03/2014 1 1 Encounter Details Date Type Department Care Team Description 02/02/2014 - Hospital Encounter [facility] Susie Doyle MD [address] [place] [id number] S/P kidney transplant (Primary Dx); 02/08/2014 [facility] [address] Mathew Parker MD [address] [place] [id number] Atrial fibrillation (H) [address] [place] [address] Social History Tobacco Use Types [...] Physician Discharge Summary Patient ID: Diego Guthrie [id number] 63 year old 1950 Admit date: 02/02/2014 [...] Take 1 tablet by mouth daily. B csgrzfc-P-tdkdz acid (NEPHROCAPS) 1 MG capsule Take 1 [...] in the [facility] ([facility]) which is located on the second floor of the [facility] next to the Transplant [...] of these appointments you will meetwith a account review specialist and meet your operations support coordinator. Your nurse will also be in communication with your surgeon and account review specialist as needed. The direct number to the [facility] is [phone]. In the [facility] [...] the hospital. This will be located in [facility] transplant surgery clinic on the second floor.Your transplant surgeon is: Dr. Merchant. You have a ureteral stent in place which needs to be removed in 4-6 weeks. If a planner/scheduler does not contact you for this, please contact your operations support coordinator. If you have modesta in place, they will be removed in 3 weeks after operation. Notify your coordinator if you have pain over your kidney, fever greater than 101.5F, or decreased urine output. Notify your coordinator immediately if you are ever unable to take your immunosuppressive medications for any reason. Cigarette Book Maker [phone] Diet recommendations post-transplant: Heart healthy dietary habits intermediate (low saturated/trans fat, low sodium). High protein [...] >2. He can be seen by any fruit canner in the outpatient setting for coordination. Continue metoprolol 25 po bid until he is r e-evaluated. We did attempt inpatient REFUGIO guided cardioversion, but the patient developed significant bleeding while on heparin. José Miguel Alvarez M.D. Thread Reeler Joseph Quintana MD - 02/08/2014 12:35 PM [...] Dr. Quintana. Sina Robison MD Nephrology Fellow [phone] Attestation: This patient has been seen and [...] Ramires RN - 02/07/2014 2:25 PM CDT Assembly Repairer D: Diego Guthrie 63 year old male POD #5 s/p DDKT for ESRD 2/[address] Diaz note today. Per Dr Diaz, pt will most likely be ready for d/c to home tomorrow and will return to [facility] for 5 days at 0700. Pt will [...] him. Pt does not know where the [facility] or transplant clinic is, I told him and he replied I will find it. Pt does not care which [facility] agency will follow him--There are only 2 to choose from, so I chose the [facility] [phone]/ --I called and left a message with Estrella Fletcher and I fax'd his records tothem--pt will need start of care approx Thursday 02/15. Pt is new on warfarin and I called his PCP's office and they have INR nurses Tuesday-Tuesday their fax # is [phone] (when N visits are completed --pt will call main clinic # to schedule INR draws). 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 I verified his address and phone #(is his cell) on the facesheet. Pt has not met his OP morning caregiver: Leandro Kahn, yet--I sent Leandro an in basket message today-with plan. A: possible d/c to home Tuesday P: see above-will follow and will call [facility] to confirm they can accept him. Joseph [...] Dr. Quintana. Sina Robison MD Nephrology Fellow [phone] Attestation: This patient has been seen and [...] assistance Medical Decision Making: Medium Subsequent visit 03180 (moderate level decision making) PATO/Fellow/Resident Provider: Adeline [...] Rodriguez MD - 02/06/2014 4:25 PM CDT [facility] Cardiology Progress Note I have seen and [...] Dr. Quintana. Sina Robison MD Nephrology Fellow [phone] Attestation: This patient has been seen and [...] Dr. Quintana. Sina Robison MD Nephrology Fellow [phone] Attestation: This patient has been seen and [...] Bowel sounds. Slight tenderness over graft incision. MARGAERT drain in place. Extremities - Left BKA. [...] REPLACEMENT ONLY ??? insulin (regular) Stopped (02/05/14 8857) Shiva Kahn RN - 02/05/2014 4:47 PM CDT REGISTERED NURSE FLOAT POOL NOTE I met with the patient and his yesterday at [facility] PCU-6B (telemetry unit) to discuss transition from inpatient to outpatient care following kidney translantation. The patient is POD #3 extended criteria donor (MAJOR APPLIANCE ASSEMBLY SUPERVISOR) kidney transplant for ESRD related to diabetic [...] the plan for daily visits to the [facility] for 5 days after discharge followed by [...] meet [facility] discharge from [facility]. Joseph Rodriguez MD - 02/05/2014 11:16 AM CDT [facility] Cardiology Progress Note I have seen and [...] plan for REFUGIO cardioversion tomorrow, NPO at [place] (orders placed) -- continue heparin and initiate [...] kidney on 02/02/2014. Pt lives alone in [place] though reports that his girlfriend in in the process of moving in with him. Pt girlfriend, Tete, will be present when pt returns home but she works time motion analyst. Pt was on dialysis for 2 1/2 years prior to transplant. Pt works independently but reports that he currently has no income coming in. Pt has primary insurancethrough Medicare and Secondary insurance through [employer]. Pt has no co-pays for his immunosuppressants and a high out of pocket cost for Valcyte, SW to look into grants for pt for Valcyte. I: Met with pt to introduce this bond writer and explain sw role and services available while inpatient in the hospital. Asked if pt had any questions or concerns and completed an assessment of psychosocialneeds post transplant. Provided education about expectations and requirements post discharge like fol low up in the [facility]. Pt is unsure yet if he will [...] needs arise prior to discharge. CECY Kearns, SOCIAL DIRECTOR Indu Calixto MD - 02/05/2014 1:50 AM [...] Adds Type of Visit Initial PT Evaluation Salvage Grinder Salvage Grinder Present no Language Solomon Islander Living Environment (R) Lives With alone Living Arrangements ([facility]) Home Accessibility no concerns Number of Stairs [...] up when pt is available. CECY Kearns, SOCIAL DIRECTOR [phone] phone [phone] pager Joseph Quintana MD - 02/04/2014 11:51 [...] Dr. Quintana. Sina Robison MD Nephrology Fellow [phone] Attestation: This patient has been seen and [...] for this basename: PTHI, in the last 04259 hours IRON STUDIES No results found for this basename: IRON, FEB, IRONSAT, THEE, in the last 75684 hours Imaging: All imaging studies reviewed by [...] or equal to 12.0 mlU/mL. Adeline Diaz [phone] Attestation: The patient has been seen and [...] donor kidney transplant, with stent on 02/02/14. MAJOR APPLIANCE ASSEMBLY SUPERVISOR donor. Graft function:uncertain, Cr slightly up. Slow [...] . Medical Decision Making: Medium Subsequent visit 37624 (moderate level decision making) PATO/Fellow/Resident Provider: Caitlin [...] note and orders. Migel Merchant MD, PhD wood cabinet finisher Abdominal Organ Transplantation Carmelita Rosario, RN - 02/03/2014 9:38 AM CDT Patient removed from the UNOS waitlist after donor kidney transplant. UNOS ID is [id number]. Rafaela Cardona - 02/03/2014 9:17 AM CDT [...] followed general diet. Patient reports good appetite/intake MARKETING PLANNING MANAGER, no nutrition issues/concnerns. CURRENT NUTRITION ORDERS - [...] DDKT ASSESSED NUTRITION NEEDS: Estimated Energy Needs: 8188-7911+ kcals (25-30+ Kcal/Kg) Justification: maintenance post-transplant Estimated [...] (6- 8 weeks). Rec follow heart-healthy diet intermediate. Implementation Nutrition education: Provided instruction on post-transplant diet with discussion regarding protein sources and high protein needs in acute post-tx phase. Reviewed recommendations to follow low fat/lowsodium diet intermediate and discussed heart healthy diet tips. Discussed [...] adjustment. Rafaela Cardona RD, LD Weekend Coverage [phone] Jose Aguirre MD - 02/03/2014 4:57 AM [...] Doing well postoperatively. Pain: Controlled by Dilaudid SELF DEFENSE INSTRUCTOR Diet: NPO tonight Volume Status: Borderline low UOP, continue MIVF, 0.9 % NS 500 cc bolus given for low UOP, CVP not accurate, systolic in 100-110 Recheck hemoglobin and potassium normal. Rest of the plan per primary team. Will continue to follow. Jose Aguirre MD PGY-1.................02/03/2014 Surgery Cross Cover Pager:[phone] documented in this encounter H&P Notes Caitlin [...] 1 tablet by mouth daily. ??? 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 Kidney bx [...] note and orders. Migel Merchant MD, PhD wood cabinet finisher Abdominal Organ Transplantation documented in this encounter Consult Notes Joseph Rodriguez MD - 02/04/2014 11:03 AM CDTAssociated Order(s): CARDIOLOGY IP CONSULT [facility] CARDIOLOGY CONSULT SERVICE INITIAL CONSULT [...] 1 tablet by mouth daily. ??? 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 2. There is no [...] assessment and plan. José Miguel Alvarez MD Thread Reeler Pager: [phone] February 04, 2014 Kaitlynn Leon MD - 02/03/2014 9:30 AM CDT Nephrology Initial Consult February 03, 2014 Diego Guthrie Date of : 1950 Date of Admission:02/02/2014 Primary care provider: Momo Forbes Requesting physician: Migel Merchant MD ASSESSMENT AND RECOMMENDATIONS: 1. DDKT - MAJOR APPLIANCE ASSEMBLY SUPERVISOR -59 yo women; slow graft function-no immediate need for dialysis , but may require tomorrow if UO does not picker tender. We will monitor Induction with Thymo/Cellcept and [...] h/o type 2 Dm, who received DDKT (MAJOR APPLIANCE ASSEMBLY SUPERVISOR) on 02/02/2014 donor kidney had severe atherosclerotic [...] ??? Cataract iol, rt/lt both eyes MEDICATIONS: MARKETING PLANNING MANAGER Meds Prior to Admission medications Medication Sig Last Dose Taking? Auth Provider Calcium Carbonate-Vitamin D (CALCIUM + D PO) Take by mouth daily. Reported, Patient lisinopril (PRINIVIL,ZESTRIL) 40 MG tablet Take 40 mg by mouth 2 times daily. Reported, Patient METOPROLOL SUCCINATE PO Take by mouth daily. Reported, Patient aspirin 81 MG tablet Take 1 tablet by mouth daily. Reported, Patient B tgpoojf-X-bxvuu acid (NEPHROCAPS) 1 MG capsule Take 1 [...] Intravenous Central line Once ??? HYDROmorphone Intravenous SELF DEFENSE INSTRUCTOR Infusion Meds ??? 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 Alvin Diego Cardiovascular Disease Fellow [phone] Patient seen and examined by me with [...] Cullen MD, PhD Jarad Cullen MD, PhD [phone] documented in this encounter Nursing Notes Gretta Mary RN - 02/02/2014 11:[address] Owens with Transplant Surgery notified of stat lab results. Magnesium replaced. Dr. Blank with Anesthesia reviewed chest x-ray. CVC not deep enough to give accurate CVP readings, however all lumens aspirate blood well. Patient is ok to transfer to unit 6B per [facility]. documented in this encounter Miscellaneous Notes Plan of Care - Amanda Hernandez RN - 02/08/2014 3:44 PM CDT Problem: IP GENERAL POC-ADULT,OB,BEHAVIORAL FVCPM Goal: Individualization/Patient-Specific Goal (Adult,OB,Behavioral The patient and/or their client care representative will achieve their patient-specific goals related [...] Card updated. [facility] Left facility accompanied by s.gumaro at 1600. Plan of Care - Amanda Hernandez RN - 02/08/2014 2:13 PM CDT Problem: IP GENERAL POC-ADULT,OB,BEHAVIORAL FVCPM Goal: Individualization/Patient-Specific Goal (Adult,OB,Behavioral The patient and/or their client care representative will achieve their patient-specific goals related [...] Individualization/Patient-Specific Goal (Adult,OB,Behavioral The patient and/or their client care representative will achieve their patient-specific goals related [...] Individualization/Patient-Specific Goal (Adult,OB,Behavioral The patient and/or their client care representative will achieve their patient-specific goals related [...] Diet recommendations post-transplant: Heart healthy dietary habits terminal supervisor (low saturated/trans fat, low sodium). High protein diet x 8 weeks. Practice food safety precautions - no fish/seafood x 3 weeks. Inez Luevano MS, RD, LD Pager [phone] Pharmacy-Immunosuppression Monitoring - Em Vasquez [facility] - 02/07/2014 9:06 AM CDT Tacrolimus [...] will continue to follow. Em Vasquez, Pharm.D., [facility] Pager [phone] Plan of Care - Annmarie Colby RN - 02/07/2014 5:11 AM CDT Problem: IP GENERAL POC-ADULT,OB,BEHAVIORAL FVCPM Goal: Individualization/Patient-Specific Goal (Adult,OB,Behavioral The patient and/or their client care representative will achieve their patient-specific goals related [...] Individualization/Patient-Specific Goal (Adult,OB,Behavioral The patient and/or their client care representative will achieve their patient-specific goals related [...] increased fluid intake, urine color is becoming polishing pad mounter( tea color/bloody- >dark sy/tea color). Incisional pain [...] Physical Therapy Goals The patient and/or their client care representative will achieve their patient-specific goals related [...] Physical Therapy Goals The patient and/or their client care representative will achieve their patient-specific goals related [...] Individualization/Patient-Specific Goal (Adult,OB,Behavioral The patient and/or their client care representative will achieve their patient-specific goals related [...] Individualization/Patient-Specific Goal (Adult,OB,Behavioral The patient and/or their client care representative will achieve their patient-specific goals related [...] Physical Therapy Goals The patient and/or their client care representative will achieve their patient-specific goals related [...] at this time. Pharmacy - Cayetano Olivera [facility] - 02/05/2014 12:26 PM CDT Visited 02/05/2014 in hospital room prior to discharge to review medications, review discharge process and review specialty pharmacy program. Med Review: Reviewed patient's medications and medical conditions. Patient would like to use [facility] to manage all medications. Medcard: [...] Specialty Pharmacy review: Discussed the benefits of [facility] and Diego has enrolled. Also gave him supplies (blood pressure cuff, thermometer, and pill box) Other concerns: No other concerns at this time. No further questions for this pharmacist. Inez Cox, Student Pharmacist Circuit Walker [facility] [address] [place] [address] Cayetano Olivera, Pharmacist [facility] [phone] Pharmacy-Anticoagulation Service - Teresa Wright [facility] - 02/05/2014 11:29 AM CDT Clinical [...] Individualization/Patient-Specific Goal (Adult,OB,Behavioral The patient and/or their client care representative will achieve their patient-specific goals related [...] melonie hard time making full sentences. When bond writer came on shift at 8pm patient [...] Individualization/Patient-Specific Goal (Adult,OB,Behavioral The patient and/or their client care representative will achieve their patient-specific goals related [...] Physical Therapy Goals The patient and/or their client care representative will achieve their patient-specific goals related [...] by friend. Pt transferred to chair, VSS, monitoring manager on, oriented to room. Pharmacy-Admission Medication History - Teresa Wright, [facility] - 02/04/2014 11:54 AM CDT Admission medication history interview status for the 02/02/2014 admission is complete. See [facility] admission navigator for allergy information, prior to admission medications and immunization status. Medication history interview sources (including written lists, pill bottles, clinic record):Patient Medication history source reliability:Good Primary pharmacy:[facility] phone number: [phone] Changes made to MARKETING PLANNING MANAGER medication list (reason) Added: Vitamin D 1,000 [...] at Unknown time Yes Reported, Patient B xhnkqnf-O-vflvf acid (NEPHROCAPS) 1 MG capsule Take 1 [...] Individualization/Patient-Specific Goal (Adult,OB,Behavioral The patient and/or their client care representative will achieve their patient-specific goals related [...] 45 minutes and remains in A-fib via monitoring analyst. Repeat EKG around 1000 showed continued Afibl. [...] Physical Therapy Goals The patient and/or their client care representative will achieve their patient-specific goals related to the plan of care. The patient-specific goals include: PT 7A: HOLD for AM per RN - pt with a-fib this morning. Plan of Care - Alisson Diane RN - 02/04/2014 6:45 AM CDT Problem: IP GENERAL POC-ADULT,OB,BEHAVIORAL FVCPM Goal: Individualization/Patient-Specific Goal (Adult,OB,Behavioral The patient and/or their client care representative will achieve their patient-specific goals related [...] Individualization/Patient-Specific Goal (Adult,OB,Behavioral The patient and/or their client care representative will achieve their patient-specific goals related [...] to yellow. Pharmacy-Transplant Note - Davina Schuster, [facility] - 02/03/2014 4:28 PM CDT Adult [...] Individualization/Patient-Specific Goal (Adult,OB,Behavioral The patient and/or their client care representative will achieve their patient-specific goals related to the plan of care. The patient-specific goals include: 1. Pt will remain hemodynamically stable 2. Pt will have adequate urine output 3. Pt will be free of falls. RD Patient will verbalize understanding of 3 important aspects of post-transplant diet guidelines. PO intake >50% meals TID once diet adv. Report taken from [facility] on 6B; patient transferred to from 6B via wheelchair around 1500. Patientsettled into room, oriented to floor/room and call light. VS taken. Orders released. Continue ordersas written and notify MD with any concerns. Plan of Care - Sofie Christianson RN - 02/03/2014 2:59 PM CDT Problem: IP GENERAL POC-ADULT,OB,BEHAVIORAL FVCPM Goal: Plan of Care Review (Adult,OB,Behavioral) The patient and/or their client care representative will communicate an understanding of their [...] algorithm 2, 1 unit now. Pt still [id number] NC to maintain sats above 90 % [...] Individualization/Patient-Specific Goal (Adult,OB,Behavioral The patient and/or their client care representative will achieve their patient-specific goals related [...] Intermittent sharp R lower abd pain. Dilaudid SELF DEFENSE INSTRUCTOR encouraged, increased to 0.2/10/1.2. R lower abd [...] 0200 made 20cc/hr, at 0300 made 30cc/hr. Perry/red tinged urine. MIVF @ 125/hr. VSS. HR 70s, BPs 100s-120s/60s. No new orders at this time. Will continue to monitor. Plan of Care - Tasia Andrade RN - 02/03/2014 12:00 AM CDT Pt arrived to 6B from PACU, s/p DDKT. A&O x3-4. VSS. Perry/red urine output. Small amt drainage on abd [...] to Type 2 Diabetes. The patient received [facility] offer for a Donor MAJOR APPLIANCE ASSEMBLY SUPERVISOR (expanded criteria donor) kidney transplant. After discussing [...] The UNOS number of the donor is [id number]. The crossmatch was done prospectively; and the [...] reconstruction. FACULTY SURGEON: Migel Merchant M.D., Ph.D. FELLOW/BUGGY MAN SURGEON: Caitlin Owens MD fellow ANESTHESIA: None VERIFICATION: Prior to incision, I verified the donor ABO and recipient ABO. After the donor organ arrived to the operating room and prior to anastamosis, I visually verified that the donor identification, blood type, and other vital data were compatible with the recipient. FINDINGS: Donor type: MAJOR APPLIANCE ASSEMBLY SUPERVISOR (expanded criteria donor) Organ: kidney Graft Injury: [...] Individualization/Patient-Specific Goal (Adult,OB,Behavioral The patient and/or their client care representative will achieve their patient-specific goals related [...] Individualization/Patient-Specific Goal (Adult,OB,Behavioral The patient and/or their client care representative will achieve their patient-specific goals related [...] LARES - ROBERT POCT Performing Organization Address City/State/[facility] Code Phon e Number [facility] POINT [...] GLUCOSE Tacrolimus level (02/08/2014 6:42 AM CDT) [facility] gist Method Time Signature Tacrolimus Not Provided [facility] Last Dose [facility] Tacrolimus 10.0 5.0 - [facility] Level 15.0 ug/L [facility] Comment: Tacrolimus Reference Range Kidney Transplant [...] Phon e Number [facility] [address] [place] [address] [facility] (ABNORMAL) INR (02/08/2014 6:42 AM CDT) P athologist Signature INR 1.28 (H) 0.86 - 1.14 [facility] Specimen Anatomical Collection Method Collection Time Receive d Time (Source) Location / / Volume Laterality Blood specimen 02/08/2014 6:42 AM 014 6:43 (specimen) CDT AM CDT Omaira Chavez PA-C LAB - BLOOD ORDERABLES Performing Organization Address City/[facility]/ZIP Code Phon e Number [facility] [address] [place], [place] [id number] [place] [address] LABS (ABNORMAL) Basic metabolic panel (02/08/2014 6:42 AM CDT) Patholo gist Method Time Signature Sodium 144 133 - 144 [facility] mmol/L [facility] LABS Potassium 3.9 3.4 - 5.3 [facility] mmol/L [facility] LABS Chloride 110 (H) 94 - 109 [facility] mmol/L [facility] LABS Carbon Dioxide 25 20 - 32 [facility] mmol/L [facility] LABS Anion Gap 8 6 - 17 [facility] mmol/L [facility] LABS Glucose 144 (H) 60 - 99 [facility] mg/dL [facility] LABS Urea Nitrogen 66 (H) 7 - 30 [facility] mg/dL [facility] LABS Creatinine 2.38 (H) 0.66 - [facility] 1.25 mg/dL [facility] LABS GFR Estimate 28 (L) >60 [facility] mL/min/1.7 [place] [facility] LABS GFR Estimate If 34 (L) >60 [facility] Black mL/min/1.7 [place] [facility] LABS Calcium 9.4 8.5 - 10.4 [facility] mg/dL [facility] LABS Specimen Anatomical Collection Method Collection Time Receive d Time (Source) Location / / Volume Laterality Blood specimen 02/08/2014 6:42 AM 014 6:43 (specimen) CDT AM CDT Omaira Chavez PA-C LAB - BLOOD ORDERABLES Performing Organization Address City/State/ZIP Code Phon e Number [facility] [address] [place] [address] [facility] LABS Phosphorus (02/08/2014 6:42 AM CDT) P [...] Phon e Number [facility] [address] LABS Magnesium (02/08/2014 6:42 AM CDT) P athologist Signature Magnesium 2.2 1.6 - 2.3 [facility] mg/dL [facility] [facility] LABS Specimen Anatomical Collection Method Collection Time Receive d Time (Source) Location / / Volume Laterality Blood specimen 02/08/2014 6:42 AM 014 6:43 (specimen) CDT AM CDT Omaira Chavez PA-C LAB - BLOOD ORDERABLES Performing Organization Address City/[facility]/ZIP Code Phon e Number [facility] [address] LABS (ABNORMAL) CBC with platelets differential (02/08/2014 6:42 AM CDT) Patholo gist Method Time Signature WBC 4.8 4.0 - [facility] 11.0 [facility] 10[facility]9/L [place] [facility] LABS RBC Count 2.56 (L) 4.4 - 5.9 [facility] 10e12/L [facility] LABS Hemoglobin 7.8 (L) 13.3 - [facility] 17.7 g/dL [facility] LABS Hematocrit 23.5 (L) 40.0 - [facility] 53.0 % [facility] LABS MCV 92 78 - 100 [facility] fl [facility] LABS MCH 30.5 26.5 - [facility] 33.0 pg [facility] LABS MCHC 33.2 31.5 - [facility] 36.5 g/dL [facility] LABS RDW 14.5 10.0 - [facility] 15.0 % [facility] LABS Platelet Count 70 (L) 150 - 450 [facility] 10e9/L [facility] LABS Diff Method Automated [facility] Method [facility] LABS % Neutrophils 86.3 % [facility] LABS % Lymphocytes 3.1 % [facility] LABS % Monocytes 9.4 % [facility] LABS % Eosinophils 1.0 % [facility] LABS % Basophils 0.0 % [facility] LABS % Immature 0.2 % [facility] Granulocytes [facility] LABS Absolute 4.1 1.6 - 8.3 [facility] [...] Organization Address City/State/ZIP Code Phon e Number [phone] [place] [address] LABS (ABNORMAL) Glucose by meter (02/07/2014 10:18 PM CDT) P athologist Signature Glucose 233 (H) 60 - 99 POINT OF CARE mg/dL TEST, GLUCOSE Specimen Anatomical Collection Method Collection Time Receive d Time (Source) Location / / Volume Laterality 02/07/2014 10:18 02/07/2014 PM CDT 10:20 PM CDT Migel LARES - BEAKER POCT Performing Organization Address City/[facility]/ZIP Code Phon e Number FV POINT [...] LAB - BEAKER POCT Performing Organization Address City/[facility]/ZIP [facility] Phon e Number FV POINT OF CARE [...] LAB - BEAKER POCT Performing Organization Address [facility] Phon e Number FV POINT [...] CDT Migel JONES POCT Performing Organization Address City/[facility] Code Phon e Number FV POINT [...] CDT Migel JONES POCT Performing Organization Address City/State/[facility] Code Phon e Number FV POINT OF CARE TEST, GLUCOSE POINT OF CARE TEST, GLUCOSE (ABNORMAL) INR (02/07/2014 4:23 AM CDT) athologist Signature INR 1.25 (H) 0.86 - 1.14 [facility] Specimen Anatomical Collection Method Collection Time Receive d Time (Source) Location / / Volume Laterality Blood specimen 02/07/2014 4:23 AM 014 4:24 (specimen) CDT AM CDT Omaira Chavez PA-C LAB - BLOOD ORDERABLES Performing Organization Address City/[facility]/ZIP Code Phon e Number [facility] [address] [place] [address] [facility] LABS (ABNORMAL) Basic metabolic panel (02/07/2014 4:23 AM CDT) Patholo gist Method Time Signature Sodium 143 133 - 144 [facility] mmol/L [facility] LABS Potassium 4.1 3.4 - 5.3 [facility] mmol/L [facility] LABS Chloride 109 94 - 109 [facility] mmol/L [facility] LABS Carbon Dioxide 24 20 - 32 [facility] mmol/L [facility] LABS Anion Gap 10 6 - 17 [facility] mmol/L [facility] LABS Glucose 185 (H) 60 - 99 [facility] mg/dL [facility] LABS Urea Nitrogen 77 (H) 7 - 30 [facility] mg/dL [facility] LABS Creatinine 3.02 (H) 0.66 - [facility] 1.25 mg/dL [facility] LABS GFR Estimate 21 (L) >60 [facility] mL/min/1.7 [facility] LAB[facility] GFR Estimate If 26 (L) >60 [facility] Black mL/min/1.7 [place] [facility] LABS Calcium 9.3 8.5 - 10.4 [facility] mg/dL [facility] LABS Specimen Anatomical Collection Method Collection Time Receive d Time (Source) Location / / Volume Laterality Blood specimen 02/07/2014 4:23 AM 014 4:24 (specimen) CDT AM CDT Omaira Chavez PA-C LAB - BLOOD ORDERABLES Performing Organization Address City/State/ZIP Code Phon e Number [facility] [address] [place] [address] [facility] LABS Phosphorus (02/07/2014 4:23 AM CDT) P [...] Phon e Number [facility] [address] LABS Magnesium (02/07/2014 4:23 AM CDT) P athologist Signature Magnesium 2.1 1.6 - 2.3 [facility] mg/dL [facility] [facility] LABS Specimen Anatomical Collection Method Collection Time Receive d Time (Source) Location / / Volume Laterality Blood specimen 02/07/2014 4:23 AM 014 4:24 (specimen) CDT AM CDT Omaira Chavez PA-C LAB - BLOOD ORDERABLES Performing Organization Address City/[facility]/ZIP Code Phon e Number [facility] [address] [place], [place] [phone] [place] [address] LABS (ABNORMAL) CBC with platelets differential (02/07/2014 4:23 AM CDT) Patholo gist Method Time Signature WBC 2.7 (L) 4.0 - [facility] 11.0 [facility] 10e9/L [facility] [facility] LABS RBC Count 2.80 (L) 4.4 - 5.9 [facility] 10e12/L [facility] LABS Hemoglobin 8.5 (L) 13.3 - [facility] 17.7 g/dL [facility] LABS Hematocrit 25.8 (L) 40.0 - [facility] 53.0 % [facility] LABS MCV 92 78 - 100 [facility] fl [facility] LABS MCH 30.4 26.5 - [facility] 33.0 pg [facility] LABS MCHC 32.9 31.5 - [facility] 36.5 g/dL [facility] LABS RDW 14.5 10.0 - [facility] 15.0 % [facility] LABS Platelet Count 77 (L) 150 - 450 [facility] 10e9/L [facility] LABS Diff Method Automated [facility] Method [facility] LABS % Neutrophils 87.5 % [facility] LABS % Lymphocytes 3.8 % [facility] LABS % Monocytes 8.7 % [facility] LABS % Eosinophils 0.0 % [facility] LABS % Basophils 0.0 % [facility] LABS % Immature 0.0 % [facility] Granulocytes [facility] Absolute 2.3 1.6 - 8.3 [facility] Neutrophil 10e9/L [facility] LABS Absolute 0.1 (L) 0.8 - 5.3 [facility] Lymphocytes 10e9/L [facility] LABS Absolute 0.2 0.0 - 1.3 [facility] Monocytes 10e9/L [facility] LABS Absolute 0.0 0.0 - 0.7 [facility] Eosinophils 10e9/L [place] [facility] LABS Absolute 0.0 0.0 - 0.2 [facility] Basophils 10e9/L [facility] LABS Abs Immature 0.0 0 - 0.4 [facility] Granulocytes 10e9/L [facility] LABS Specimen Anatomical Collection Method Collection Time Receive d Time (Source) Location / / Volume Laterality Blood specimen 02/07/2014 4:23 AM 014 4:24 (specimen) CDT AM CDT Omaira Chavez PA-C LAB - BLOOD ORDERABLES Performing Organization Address City/[facility]/ZIP Code Phon e Number [address] LABS (ABNORMAL) Hemoglobin A1c (02/07/2014 4:23 AM CDT) Analysis Performed At Patho logist Time Signature Hemoglobin A1C 6.1 (H) 4.3 - 6.0 [facility] % [facility] LABS Specimen Anatomical Collection Method Collection Time Receive d Time (Source) Location / / Volume Laterality Blood specimen 02/07/2014 4:23 AM 014 4:24 (specimen) CDT AM CDT Omaira Chavez PA-C LAB - BLOOD ORDERABLES Performing Organization Address City/[facility]/ZIP Code Phon e Number [address] LABS (ABNORMAL) Glucose by meter (02/06/2014 10:06 PM CDT) P athologist Signature Glucose 247 (H) 60 - 99 POINT OF CARE mg/dL TEST, GLUCOSE Specimen Anatomical Collection Method Collection Time Receive d Time (Source) Location / / Volume Laterality 02/06/2014 10:06 02/06/2014 PM CDT 10:10 PM CDT Migel eMrchant MD LAB - BEAKER POCT Performing Organization [...] Signature Hemoglobin 8.8 (L) 13.3 - 17.7 [facility] g/dL [place] LABS Specimen Anatomical Collection Method Collection Time Receive d Time (Source) Location / / Volume Laterality Blood specimen 02/06/2014 4:59 PM 014 5:12 (specimen) CDT PM CDT Omaira Chavez PA-C LAB - BLOOD ORDERABLES Performing Organization Address City/State/ZIP Code Phon e Number [address] [address] [facility] LABS (ABNORMAL) Glucose by meter (02/06/2014 12:01 PM CDT) athologist Signature Glucose 181 (H) 60 - 99 POINT OF CARE mg/dL TEST, GLUCOSE Specimen Anatomical Collection Method Collection Time Receive d Time (Source) Location / / Volume Laterality 02/06/2014 12:01 02/06/2014 PM CDT 12:05 PM CDT Migel Merchant MD LAB - BEAKER POCT Performing Organization Address City/[facility]/ZIP Code Phon e Number [facility] POINT OF CARE TEST, GLUCOSE POINT OF CARE TEST, GLUCOSE (ABNORMAL) Partial thromboplastin time (02/06/2014 5:57 AM CDT) P athologist Signature PTT 154 (HH) 22 - [address] [facility] LABS Comment: Critical Value called to and read back Whitney Poon RN AT 0642. PW Specimen Anatomical Collection Method Collection Time Receive d Time (Source) Location / / Volume Laterality 02/06/2014 5:57 AM 4 6:03 CDT AM CDT Adeline Diaz MD LAB - BLOOD ORDERABLES Performing Organization Address City/[facility]/ZIP Code Phon e Number [phone] [place] [address] LABS Heparin Xa (10a) Level (02/06/2014 5:57 AM CDT) P athologist Signature Heparin 10A 0.92 IU/mL [facility] LABS Comment: Therapeutic Range: ?? UFH: ?? [...] Phon e Number [facility] [address] [place] [address] [facility] LABS (ABNORMAL) INR (02/06/2014 5:57 AM CDT) P athologist Signature INR 1.32 (H) 0.86 - 1.14 [facility] LABS Specimen Anatomical Collection Method Collection Time Receive d Time (Source) Location / / Volume Laterality Blood specimen 02/06/2014 5:57 AM 014 6:03 (specimen) CDT AM CDT Omaira Chavez PA-C LAB - BLOOD ORDERABLES Performing Organization Address City/State/ZIP Code Phon e Number [facility] [address] LABS (ABNORMAL) Basic metabolic panel (02/06/2014 5:57 AM CDT) Patholo gist Method Time Signature Sodium 142 133 - 144 [facility] mmol/L [facility] LABS Potassium 4.7 3.4 - 5.3 [facility] mmol/L [facility] LABS Chloride 106 94 - 109 [facility] mmol/L [facility] LABS Carbon Dioxide 28 20 - 32 [facility] mmol/L [facility] LABS Anion Gap 8 6 - 17 [facility] mmol/L [facility] LABS Glucose 196 (H) 60 - 99 [facility] mg/dL [facility] LABS Urea Nitrogen 71 (H) 7 - 30 [facility] mg/dL [facility] LABS Creatinine 3.96 (H) 0.66 - [facility] 1.25 mg/dL [facility] LABS GFR Estimate 15 (L) >60 [facility] mL/min/1.7 [place] [facility]2 [facility] LABS GFR Estimate If 19 (L) >60 [facility] Black mL/min/1.[address] LABS Calcium 9.4 8.5 - 10.4 [facility] mg/dL [facility] LABS Specimen Anatomical Collection Method Collection Time Receive d Time (Source) Location / / Volume Laterality Blood specimen 02/06/2014 5:57 AM 014 6:03 (specimen) CDT AM CDT Omaira Chavez PA-C LAB - BLOOD ORDERABLES Performing Organization Address City/State/ZIP Code Phon e Number [facility] [address] [place] [address] [facility] LABS Phosphorus (02/06/2014 5:57 AM CDT) athologist Signature Phosphorus 4.5 2.5 - 4.5 [facility] mg/dL [place] [facility] LABS Specimen Anatomical Collection Method Collection Time Receive d Time (Source) Location / / Volume Laterality Blood specimen 02/06/2014 5:57 AM 014 6:03 (specimen) CDT AM CDT Omaira Chavez PA-C LAB - BLOOD ORDERABLES Performing Organization Address City/[facility]/ZIP Code Phon e Number [facility] [address] LABS Magnesium (02/06/2014 5:57 AM CDT) athologist Signature Magnesium 1.9 1.6 - 2.3 [facility] mg/dL [place] [facility] LABS Specimen Anatomical Collection Method Collection Time Receive d Time (Source) Location / / Volume Laterality Blood specimen 02/06/2014 5:57 AM 014 6:03 (specimen) CDT AM CDT Omaira Chavez PA-C LAB - BLOOD ORDERABLES Performing Organization Address City/State/[facility] Code Phon e Number [facility] [address] LABS (ABNORMAL) CBC with platelets differential (02/06/2014 5:57 AM CDT) [facility] gist Method Time Signature WBC 5.1 4.0 - [facility] 11.0 [facility] 10e9/L [place] [facility] LABS RBC Count 3.13 (L) 4.4 - 5.9 [facility] 10e12/L [facility] LABS Hemoglobin 9.6 (L) 13.3 - [facility] 17.7 g/dL [facility] LABS Hematocrit 29.0 (L) 40.0 - [facility] 53.0 % [facility] LABS MCV 93 78 - 100 [facility] fl [facility] LABS MCH 30.7 26.5 - [facility] 33.0 pg [facility] LABS MCHC 33.1 31.5 - [facility] 36.5 g/dL [facility] LABS RDW 14.5 10.0 - [facility] 15.0 % [facility] LABS Platelet Count 85 (L) 150 - 450 [facility] 10e9/L [facility] LABS Diff Method Automated [facility] Method [facility] LABS % Neutrophils 86.0 % [facility] LABS % Lymphocytes 5.1 % [facility] LABS % Monocytes 8.7 % [facility] LABS % Eosinophils 0.0 % [facility] LABS % Basophils 0.0 % [facility] LABS % Immature 0.2 % [facility] Granulocytes [facility] LABS Absolute 4.4 1.6 - 8.3 [facility] Neutrophil 10e9/L [facility] LABS Absolute 0.3 (L) 0.8 - 5.3 [facility] Lymphocytes 10e9/L [facility] LABS Absolute 0.4 0.0 - 1.3 [facility] Monocytes 10e9/L [facility] LABS Absolute 0.0 0.0 - 0.7 [facility] Eosinophils 10e9/L [facility] LABS Absolute 0.0 0.0 - 0.2 [facility] Basophils 10e9/L [facility] LABS Abs Immature 0.0 0 - 0.4 [facility] Granulocytes 10e9/L [facility] LABS Specimen Anatomical Collection Method Collection Time Receive d Time (Source) Location / / Volume Laterality Blood specimen 02/06/2014 5:57 AM 014 6:03 (specimen) CDT AM CDT Omaira Chavez PA-C LAB - BLOOD ORDERABLES Performing Organization Address City/State/ZIP Code Phon e Number [address] LABS (ABNORMAL) Lipid panel reflex to direct LDL (02/06/2014 5:57 AM CDT) P athologist Signature Cholesterol 126 <200 mg/dL [facility] LABS Comment: LDL Cholesterol is the primary guide to therapy. The NCEP recommends further evaluation of: patients with cholesterol greater than 200 mg/dL if additional risk facto rs are present, cholesterol greater than 240 mg/dL, triglycerides greater than 1 50 mg/dL, or HDL less than 40 mg/dL. Triglycerides 100 0 - 150 mg/dL [facility] LABS HDL Cholesterol 35 (L) >40 mg/dL [facility] LABS LDL Cholesterol Calculated 71 0 - 129 mg/dL [facility] LABS Comment: LDL Cholesterol is the primary guide to therapy: LDL-cholesterol goal in high risk patients is <100 mg/dL and in very high risk patients is <70 mg/dL. VLDL-Cholesterol 20 0 - 30 mg/dL [facility] Cholesterol/HDL Ratio 3.6 0.0 - 5.0 [facility] Specimen Anatomical Collection Method Collection Time Receive d Time (Source) Location / / Volume Laterality Blood specimen 02/06/2014 5:57 AM 014 6:03 (specimen) CDT AM CDT Omaira Chavez PA-C LAB - BLOOD ORDERABLES Performing Organization Address City/State/ZIP Code Phon e Number [facility] [address] [place], [place] [id number] [place] [address] LABS Tacrolimus level (02/06/2014 5:57 AM CDT) [facility] gist Method Time Signature Tacrolimus S Negative [facility] Last Dose [facility] LABS Tacrolimus 12.7 5.0 - [facility] Level 15.0 ug/L [facility] LABS Comment: Tacrolimus Reference Range Kidney Transplant [...] LAB - BLOOD ORDERABLES Performing Organization Address City/[facility]/ZIP Code Phon e Number [facility] [address] LABS (ABNORMAL) Glucose by meter (02/06/2014 3:21 AM CDT) P athologist Signature Glucose 216 (H) 60 - 99 POINT OF CARE mg/dL TEST, GLUCOSE Specimen Anatomical Collection Method Collection Time Receive d Time (Source) Location / / Volume Laterality 02/06/2014 3:21 AM 4 3:25 CDT AM CDT Migel Merchant MD LAB - BEAKER POCT Performing Organization Address City/[facility]/ZIP Code Phon e Number FV POINT OF CARE TEST, GLUCOSE POINT OF CARE TEST, GLUCOSE (ABNORMAL) Hemoglobin (02/06/2014 1:02 AM CDT) P athologist Signature Hemoglobin 10.2 (L) 13.3 - [facility] 17.7 g/dL [facility] LABS Specimen Anatomical Collection Method Collection Time Receive d Time (Source) Location / / Volume Laterality Blood specimen 02/06/2014 1:02 AM 014 1:11 (specimen) CDT AM CDT Deysi Alicea MD LAB - BLOOD ORDERABLES Performing Organization Address City/[facility]/ZIP Code Phon e Number [facility] [address] LABS (ABNORMAL) Glucose by meter (02/05/2014 [...] P athologist Signature Heparin 10A 0.64 IU/mL [facility] LABS Comment: Therapeutic Range: ?? UFH: ?? [...] LAB - BLOOD ORDERABLES Performing Organization Address City/[facility]/ZIP Code Phon e Number [phone] [place] [address] LABS (ABNORMAL) Glucose by meter (02/05/2014 6:04 PM CDT) P athologist Signature Glucose 232 (H) 60 - 99 POINT OF CARE mg/dL TEST, GLUCOSE Specimen Anatomical Collection Method Collection Time Receive d Time (Source) Location / / Volume Laterality 02/05/2014 6:04 PM 4 6:10 CDT PM CDT Migel LARES - BEAKER POCT Performing Organization Address City/[facility]/ZIP Code Phon e Number FV POINT [...] LAB - BEAKER POCT Performing Organization Address [facility] Phon e Number FV POINT [...] LAB - BEAKER POCT Performing Organization Address [facility] Phon e Number FV POINT [...] LAB - BEAKER POCT Performing Organization Address [facility] Phon e Number FV POINT OF CARE TEST, GLUCOSE POINT OF CARE TEST, GLUCOSE (ABNORMAL) INR (02/05/2014 12:04 PM CDT) P athologist Signature INR 1.24 (H) 0.86 - 1.14 [facility] LABS Specimen Anatomical Collection Method Collection Time Receive d Time (Source) Location / / Volume Laterality Blood specimen 02/05/2014 12:04 4 (specimen) PM CDT 12:10 PM CDT Teresa Wright [facility] LAB - BLOOD ORDERABLES Performing Organization Address City/[facility] Phon e Number [facility] [address] LABS (ABNORMAL) CBC with platelets (02/05/2014 12:04 PM CDT) Patholo gist Method Time Signature WBC 7.4 4.0 - 11.0 [facility] 10e9/L [facility] LABS RBC Count 3.31 (L) 4.4 - 5.9 [facility] 10e12/L [facility] LABS Hemoglobin 10.3 (L) 13.3 - [facility] 17.7 g/dL [facility] LABS Hematocrit 31.0 (L) 40.0 - [facility] 53.0 % [facility] LABS MCV 94 78 - 100 [facility] fl [facility] LABS MCH 31.1 26.5 - [facility] 33.0 pg [facility] MCHC 33.2 31.5 - [facility] 36.5 g/dL [facility] RDW 14.7 10.0 - [facility] 15.0 % [facility] Platelet Count 91 (L) 150 - 450 [facility] 10e9/L [facility] Specimen Anatomical Collection Method Collection Time Receive d Time (Source) Location / / Volume Laterality Blood specimen 02/05/2014 12:04 4 (specimen) PM CDT 12:10 PM CDT Omaira Chavez PA-C LAB - BLOOD ORDERABLES Performing Organization Address City/[facility]/ZIP Code Phon e Number [phone] [place] [address] LABS (ABNORMAL) Glucose by meter (02/05/2014 11:25 [...] Basic metabolic panel (02/05/2014 7:02 AM CDT) [facility] gist Method Time Signature Sodium 143 133 - 144 [facility] mmol/L [facility] Potassium 4.3 3.4 - 5.3 [facility] mmol/L [facility] Chloride 107 94 - 109 [facility] mmol/L [facility] Carbon Dioxide 25 20 - 32 [facility] mmol/L [facility] Anion Gap 10 6 - 17 [facility] mmol/L [facility] Glucose 123 (H) 60 - 99 [facility] mg/dL [facility] Urea Nitrogen 66 (H) 7 - 30 [facility] mg/dL [facility] Creatinine 4.77 (H) 0.66 - [facility] 1.25 mg/dL [facility] GFR Estimate 12 (L) >60 [facility] mL/min/1.7 [place] m2 [facility] GFR Estimate If 15 (L) >60 [facility] Black mL/min/1.7 [place] m2 [facility] Calcium 9.4 8.5 - 10.4 [facility] mg/dL [facility] Specimen Anatomical Collection Method Collection Time Receive d Time (Source) Location / / Volume Laterality Blood specimen 02/05/2014 7:02 AM 014 7:05 (specimen) CDT AM CDT Omaira Chavez PA-C LAB - BLOOD ORDERABLES Performing Organization Address City/[facility]/ZIP Code Phon e Number [address] LABS (ABNORMAL) Phosphorus (02/05/2014 7:02 AM CDT) P athologist Signature Phosphorus 5.7 (H) 2.5 - 4.5 [facility] mg/dL [facility] Specimen Anatomical Collection Method Collection Time Receive d Time (Source) Location / / Volume Laterality Blood specimen 02/05/2014 7:02 AM 014 7:05 (specimen) CDT AM CDT Omaira Chavez PA-C LAB - BLOOD ORDERABLES Performing Organization Address City/[facility]/ZIP Code Phon e Number [address] LABS Magnesium (02/05/2014 7:02 AM CDT) P athologist Signature Magnesium 2.0 1.6 - 2.3 [facility] mg/dL [facility] Specimen Anatomical Collection Method Collection Time Receive d Time (Source) Location / / Volume Laterality Blood specimen 02/05/2014 7:02 AM 014 7:05 (specimen) CDT AM CDT Omaira Chavez PA-C LAB - BLOOD ORDERABLES Performing Organization Address City/[facility]/ZIP Code Phon e Number [address] LABS (ABNORMAL) CBC with platelets differential (02/05/2014 7:02 AM CDT) Patholo gist Method Time Signature WBC 8.9 4.0 - [facility] 11.0 [place] 10e9/L [facility] RBC Count 3.20 (L) 4.4 - 5.9 [facility] 10e12/L [facility] Hemoglobin 9.7 (L) 13.3 - [facility] 17.7 g/dL [facility] LABS Hematocrit 30.0 (L) 40.0 - [facility] 53.0 % [facility] MCV 94 78 - 100 [facility] fl [facility] MCH 30.3 26.5 - [facility] 33.0 pg [facility] MCHC 32.3 31.5 - [facility] 36.5 g/dL [facility] RDW 14.6 10.0 - [facility] 15.0 % [facility] Platelet Count 96 (L) 150 - 450 [facility] 10e9/L [facility] Diff Method Automated [facility] Method [facility] % Neutrophils 90.2 % [facility] % Lymphocytes 4.4 % [facility] % Monocytes 5.2 % [facility]S % Eosinophils 0.0 % [facility] % Basophils 0.0 % [facility] % Immature 0.2 % [facility] Granulocytes [facility] Absolute 8.1 1.6 - 8.3 [facility] Neutrophil 10e9/L [facility] Absolute 0.4 (L) 0.8 - 5.3 [facility] Lymphocytes 10e9/L [facility] Absolute 0.5 0.0 - 1.3 [facility] Monocytes 10e9/L [facility] Absolute 0.0 0.0 - 0.7 [facility] Eosinophils 10e9/L [facility] Absolute 0.0 0.0 - 0.2 [facility] Basophils 10e9/L [facility] Abs Immature 0.0 0 - 0.4 [facility] Granulocytes 10e9/L [facility] Specimen Anatomical Collection Method Collection Time Receive d Time (Source) Location / / Volume Laterality Blood specimen 02/05/2014 7:02 AM 014 7:05 (specimen) CDT AM CDT Omaira Chavez PA-C LAB - BLOOD ORDERABLES Performing Organization Address City/State/ZIP Code Phon e Number [facility] [address] [place] [address] [facility] LABS (ABNORMAL) Parathormone intact (02/05/2014 7:02 AM CDT) Patholo gist Method Time Signature Parathyroid 362 (H) 12 - 72 [facility] Hormone Intact pg/mL [facility] Specimen Anatomical Collection Method Collection Time Receive d Time (Source) Location / / Volume Laterality Blood specimen 02/05/2014 7:02 AM 014 7:05 (specimen) CDT AM CDT Sina Robison MD LAB - BLOOD ORDERABLES Performing Organization Address City/[facility]/ZIP Code Phon e Number [facility] [address] LABS (ABNORMAL) Ferritin (02/05/2014 7:02 AM CDT) athologist Signature Ferritin 932 (H) 20 - 300 [facility] ng/mL [facility] Specimen Anatomical Collection Method Collection Time Receive d Time (Source) Location / / Volume Laterality Blood specimen 02/05/2014 7:02 AM 014 7:05 (specimen) CDT AM CDT Sina Robison MD LAB - BLOOD ORDERABLES Performing Organization Address City/State/ZIP Code Phon e Number [facility] [address] LABS (ABNORMAL) Iron and iron binding capacity (02/05/2014 7:02 AM CDT) Analysis Performed At Patho logist Time Signature Iron 119 35 - 180 [facility] ug/dL [facility] Iron Binding 207 (L) 240 - 430 [facility] Cap ug/dL [facility] LAB[facility] Iron Saturation 58 (H) 15 - 46 % [facility] Index [facility] Specimen Anatomical Collection Method Collection Time Receive d Time (Source) Location / / Volume Laterality Blood specimen 02/05/2014 7:02 AM 014 7:05 (specimen) CDT AM CDT Sina Robison MD LAB - BLOOD ORDERABLES Performing Organization Address City/[facility]/ZIP Code Phon e Number [facility] [address] LABS (ABNORMAL) Glucose by meter (02/05/2014 [...] LAB - BEAJ POCT Performing Organization Address [facility] Code Phon e Number FV POINT [...] LARES - BEAJ POCT Performing Organization Address City/[facility] Code Phon e Number FV POINT [...] LARES - BEAJ POCT Performing Organization Address City/[facility] Code Phon e Number FV POINT [...] LAB - BEAJ POCT Performing Organization Address City/[facility] Phon e Number FV POINT [...] LAB - BEAJ POCT Performing Organization Address [facility] Phon e Number FV POINT [...] LAB - BEAJ POCT Performing Organization Address [facility] Phon e Number FV POINT [...] LARES - BEAJ POCT Performing Organization Address [facility] Phon e Number FV POINT [...] Carr MD ECG ORDERABLES Performing Organization Address [facility] Phon e Number RADIOLOGY RESULTS (ABNORMAL) Glucose by meter (02/04/2014 10:56 PM CDT) P athologist Signature Glucose 161 (H) 60 - 99 POINT OF CARE mg/dL TEST, GLUCOSE Specimen Anatomical Collection Method Collection Time Receive d Time (Source) Location / / Volume Laterality 02/04/2014 10:56 02/04/2014 PM CDT 11:00 PM CDT Migel LARES - ROBERT POCT Performing Organization Address [facility] Phon e Number FV POINT [...] LARES - ROBERT POCT Performing Organization Address [facility] Phon e Number FV POINT [...] CDT Migel JONES POCT Performing Organization Address [facility] Phon e Number FV POINT [...] athologist Signature Troponin I 0.016 0.000 - [facility] 0.034 ug/L [facility] Specimen Anatomical Collection Method Collection Time Receive d Time (Source) Location / / Volume Laterality Blood specimen 02/04/2014 7:10 PM 014 7:23 (specimen) CDT PM CDT Adeline Diaz MD LAB - BLOOD ORDERABLES Performing Organization Address City/[facility]/ZIP Code Phon e Number [phone] [place] [address] LABS (ABNORMAL) Glucose by meter (02/04/2014 7:01 [...] athologist Signature Troponin I 0.025 0.000 - [facility] 0.034 ug/L CAMPUS LABS Specimen Anatomical Collection Method Collection Time Receive d Time (Source) Location / / Volume Laterality Blood specimen 02/04/2014 12:42 4 (specimen) PM CDT 12:45 PM CDT Adeline Diaz MD LAB - BLOOD ORDERABLES Performing Organization Address City/State/ZIP Code Phon e Number [address] [address] [facility] LABS (ABNORMAL) Glucose by meter (02/04/2014 12:27 PM CDT) P athologist Signature Glucose 140 (H) 60 - 99 POINT OF CARE mg/dL TEST, GLUCOSE Specimen Anatomical Collection Method Collection Time Receive d Time (Source) Location / / Volume Laterality 02/04/2014 12:27 02/04/2014 PM CDT 12:30 PM CDT Migel Merchant MD LAB - BEAJ POCT Performing Organization Address [facility] Phon e Number FV POINT [...] LAB - BEAJ POCT Performing Organization Address [facility] Phon e Number FV POINT [...] LAB - BEAJ POCT Performing Organization Address [facility] Phon e Number FV POINT OF CARE TEST, GLUCOSE POINT OF CARE TEST, GLUCOSE EKG 12-lead, complete (02/04/2014 9:21 AM CDT) [facility] gist Method Time Signature Interpretation ECG Click View RADIOLOGY Image link RESULTS to view waveform and result Specimen (Source) Anatomical Collection Method Collection Time Re ceived Time Location / / Volume Laterality 02/04/2014 9:21 AM CDT Omaira Chavez PA-C ECG ORDERABLES Performing Organization Address [facility] Phon e Number RADIOLOGY RESULTS (ABNORMAL) Glucose by meter (02/04/2014 9:02 AM CDT) P athologist Signature Glucose 203 (H) 60 - 99 POINT OF CARE mg/dL TEST, GLUCOSE Specimen Anatomical Collection Method Collection Time Receive d Time (Source) Location / / Volume Laterality 02/04/2014 9:02 AM 4 9:05 CDT AM CDT Migel Merchant MD LAB - BEAKER POCT Performing Organization Address [facility] Phon e Number FV POINT [...] LAB - BEAJ POCT Performing Organization Address [facility] Phon e Number FV POINT [...] LAB - BEAJ POCT Performing Organization Address [facility] Phon e Number FV POINT OF CARE TEST, GLUCOSE POINT OF CARE TEST, GLUCOSE EKG 12-lead, complete (02/04/2014 7:03 AM CDT) [facility] Method Time Signature Interpretation ECG Click View RADIOLOGY Image link RESULTS to view waveform and result Specimen (Source) Anatomical Collection Method Collection Time Re ceived Time Location / / Volume Laterality 02/04/2014 7:03 AM CDT Caitlin Owens MD ECG ORDERABLES Performing Organization Address [facility] Phon e Number RADIOLOGY RESULTS [...] Troponin I ES <0.012 0.000 - [facility] [place] 0.034 ug/L [facility]AMPUS LABS Specimen Anatomical Collection Method Collection Time Receive d Time (Source) Location / / Volume Laterality 02/04/2014 5:49 AM 4 5:51 CDT AM CDT Caitlin Owens MD LAB - BLOOD ORDERABLES Performing Organization Address City/State/ZIP Code Phon e Number [id number] [place] [address] [facility] (ABNORMAL) Basic metabolic panel (02/04/2014 5:49 AM CDT) Patholo gist Method Time Signature Sodium 142 133 - 144 [facility] mmol/L [facility] Potassium 4.9 3.4 - 5.3 [facility] mmol/L [facility] Chloride 107 94 - 109 [facility] mmol/L [facility] Carbon Dioxide 23 20 - 32 [facility] mmol/L [facility] Anion Gap 12 6 - 17 [facility] mmol/L [facility] Glucose 151 (H) 60 - 99 [facility] mg/dL [facility] LAB[facility] Urea Nitrogen 57 (H) 7 - 30 [facility] mg/dL [facility] Creatinine 5.94 (H) 0.66 - [facility] 1.25 mg/dL [facility] GFR Estimate 10 (L) >60 [facility] mL/min/1.7 [facility] GFR Estimate If 12 (L) >60 [facility] Black mL/min/1.7 [place] m2 [facility]AMP[facility] LABS Calcium 9.4 8.5 - 10.4 [facility] mg/dL [facility] Specimen Anatomical Collection Method Collection Time Receive d Time (Source) Location / / Volume Laterality Blood specimen 02/04/2014 5:49 AM 014 5:51 (specimen) CDT AM CDT Omaira Chavez PA-C LAB - BLOOD ORDERABLES Performing Organization Address City/[facility]/ZIP Code Phon e Number [address] LABS (ABNORMAL) Phosphorus (02/04/2014 5:49 AM CDT) P athologist Signature Phosphorus 6.3 (H) 2.5 - 4.5 [facility] mg/dL [facility] Specimen Anatomical Collection Method Collection Time Receive d Time (Source) Location / / Volume Laterality Blood specimen 02/04/2014 5:49 AM 014 5:51 (specimen) CDT AM CDT Omaira Chavez PA-C LAB - BLOOD ORDERABLES Performing Organization Address City/[facility]/ZIP Code Phon e Number [address] LABS Magnesium (02/04/2014 5:49 AM CDT) athologist Signature Magnesium 2.1 1.6 - 2.3 [facility] mg/dL [facility] Specimen Anatomical Collection Method Collection Time Receive d Time (Source) Location / / Volume Laterality Blood specimen 02/04/2014 5:49 AM 014 5:51 (specimen) CDT AM CDT Omaira Chavez PA-C LAB - BLOOD ORDERABLES Performing Organization Address City/[facility]/ZIP Code Phon e Number [address] LABS (ABNORMAL) CBC with platelets differential (02/04/2014 5:49 AM CDT) [facility] gist Method Time Signature WBC 13.8 (H) 4.0 - [facility] 11.0 [place] 10e9/L [facility] RBC Count 3.10 (L) 4.4 - 5.9 [facility] 10e12/L [facility] LAB[facility] Hemoglobin 9.5 (L) 13.3 - [facility] 17.7 g/dL [facility] LABS Hematocrit 28.7 (L) 40.0 - [facility] 53.0 % [facility] MCV 93 78 - 100 [facility] fl [facility] MCH 30.6 26.5 - [facility] 33.0 pg [facility] LAB[facility] MCHC 33.1 31.5 - [facility] 36.5 g/dL [facility] RDW 14.6 10.0 - [facility] 15.0 % [facility] Platelet Count 91 (L) 150 - 450 [facility] 10e9/L [facility] LABS Diff Method Automated [facility] Method [facility] % Neutrophils 95.8 % [facility] LAB[facility] % Lymphocytes 1.2 % [facility] % Monocytes 2.8 % [facility] % Eosinophils 0.0 % [facility] % Basophils 0.0 % [facility] % Immature 0.2 % [facility] Granulocytes [facility] LAB[facility] Absolute 13.2 (H) 1.6 - 8.3 [facility] Neutrophil 10e9/L [facility] LAB[facility] Absolute 0.2 (L) 0.8 - 5.3 [facility] Lymphocytes 10e9/L [facility] Absolute 0.4 0.0 - 1.3 [facility] Monocytes 10e9/L [facility] LAB[facility] Absolute 0.0 0.0 - 0.7 [facility] Eosinophils 10e9/L [facility] LABS Absolute 0.0 0.0 - 0.2 [facility] Basophils 10e9/L [facility] LAB[facility] Abs Immature 0.0 0 - 0.4 [facility] Granulocytes 10e9/L [facility] LABS Specimen Anatomical Collection Method Collection Time Receive d Time (Source) Location / / Volume Laterality Blood specimen 02/04/2014 5:49 AM 014 5:51 (specimen) CDT AM CDT Omaira Chavez PA-C LAB - BLOOD ORDERABLES Performing Organization Address City/State/ZIP Code Phon e Number [phone] [place] [address] LABS (ABNORMAL) Glucose by meter (02/04/2014 5:33 [...] LAB - BEAJ POCT Performing Organization Address [facility] Phon e Number FV POINT [...] LARES - ROBERT POCT Performing Organization Address [facility] Phon e Number FV POINT OF CARE TEST, GLUCOSE POINT OF CARE TEST, GLUCOSE Glucose by meter (02/04/2014 1:44 AM CDT) P athologist Signature Glucose 99 60 - 99 POINT OF CARE mg/dL TEST, GLUCOSE Specimen Anatomical Collection Method Collection Time Receive d Time (Source) Location / / Volume Laterality 02/04/2014 1:44 AM 4 1:50 CDT AM CDT iMgel LARES - ROBERT POCT Performing Organization Address [facility] Phon e Number FV POINT [...] athologist Signature Potassium 4.8 3.4 - 5.3 [facility] mmol/L CAMPUS LABS Specimen Anatomical Collection Method Collection Time Receive d Time (Source) Location / / Volume Laterality Blood specimen 02/03/2014 10:16 4 (specimen) PM CDT 10:19 PM CDT Caitlin Owens MD LAB - BLOOD ORDERABLES Performing Organization Address City/[facility]/ZIP Code Phon e Number [facility] [address] LABS (ABNORMAL) Hemoglobin (02/03/2014 10:16 PM CDT) athologist Signature Hemoglobin 9.4 (L) 13.3 - 17.7 [facility] g/dL CAMPUS LABS Specimen Anatomical Collection Method Collection Time Receive d Time (Source) Location / / Volume Laterality Blood specimen 02/03/2014 10:16 4 (specimen) PM CDT 10:19 PM CDT Caitlin Owens MD LAB - BLOOD ORDERABLES Performing Organization Address City/[facility]/ZIP Code Phon e Number [facility] [address] LABS (ABNORMAL) Glucose by meter (02/03/2014 9:55 PM CDT) P athologist Signature Glucose 167 (H) 60 - 99 POINT OF CARE mg/dL TEST, GLUCOSE Specimen Anatomical Collection Method Collection Time Receive d Time (Source) Location / / Volume Laterality 02/03/2014 9:55 PM 4 CDT 10:00 PM CDT Migel Merchant MD LAB - ROBERT POCT Performing Organization Address [facility]/ZIP Code Phon e Number FV POINT [...] LAB - ROBERT POCT Performing Organization Address [facility] Phon e Number FV POINT [...] LAB - BEAJ POCT Performing Organization Address [facility] Phon e Number FV POINT [...] LAB - BEAJ POCT Performing Organization Address [facility] Phon e Number FV POINT OF CARE TEST, GLUCOSE POINT OF CARE TEST, GLUCOSE Potassium (02/03/2014 6:52 PM CDT) P athologist Signature Potassium 4.7 3.4 - 5.3 [facility] mmol/L CAMPUS LABS Specimen Anatomical Collection Method Collection Time Receive d Time (Source) Location / / Volume Laterality Blood specimen 02/03/2014 6:52 PM 014 6:53 (specimen) CDT PM CDT Caitlin Owens MD LAB - BLOOD ORDERABLES Performing Organization Address City/[facility]/ZIP Code Phon e Number [address] LABS (ABNORMAL) Hemoglobin (02/03/2014 6:52 PM CDT) athologist Signature Hemoglobin 9.6 (L) 13.3 - 17.7 [facility] g/dL CAMPUS LABS Specimen Anatomical Collection Method Collection Time Receive d Time (Source) Location / / Volume Laterality Blood specimen 02/03/2014 6:52 PM 014 6:53 (specimen) CDT PM CDT Caitlin Owens MD LAB - BLOOD ORDERABLES Performing Organization Address [facility] Code Phon e Number [phone] [place] [address] LABS (ABNORMAL) Glucose by meter (02/03/2014 6:00 PM CDT) athologist Signature Glucose 140 (H) 60 - 99 POINT OF CARE mg/dL TEST, GLUCOSE Specimen Anatomical Collection Method Collection Time Receive d Time (Source) Location / / Volume Laterality 02/03/2014 6:00 PM 4 6:05 CDT PM CDT Migel Merchant MD LAB - BEAKER POCT Performing Organization Address City/[facility]/ZIP Code Phon e Number FV POINT [...] athologist Signature Potassium 4.7 3.4 - 5.3 [facility] mmol/L [facility]AMPUS LABS Specimen Anatomical Collection Method Collection Time Receive d Time (Source) Location / / Volume Laterality Blood specimen 02/03/2014 1:41 PM 014 1:43 (specimen) CDT PM CDT Caitlin Owens MD LAB - BLOOD ORDERABLES Performing Organization Address City/State/ZIP Code Phon e Number [phone] [place] [address] LABS (ABNORMAL) Hemoglobin (02/03/2014 1:41 PM CDT) P athologist Signature Hemoglobin 9.8 (L) 13.3 - 17.7 [facility] g/dL CAMPUS LABS Specimen Anatomical Collection Method Collection Time Receive d Time (Source) Location / / Volume Laterality Blood specimen 02/03/2014 1:41 PM 2 014 1:43 (specimen) CDT PM CDT Caitlin Owens MD LAB - BLOOD ORDERABLES Performing Organization Address City/State/ZIP Code Phon e Number [address] [address] [facility] LABS (ABNORMAL) Glucose by meter (02/03/2014 1:10 PM CDT) P athologist Signature Glucose 135 (H) 60 - 99 POINT OF CARE mg/dL TEST, GLUCOSE Specimen Anatomical Collection Method Collection Time Receive d Time (Source) Location / / Volume Laterality 02/03/2014 1:10 PM 4 1:15 CDT PM CDT Migel LARES - BEAJ POCT Performing Organization Address City/[facility]/ZIP Code Phon e Number FV POINT [...] athologist Signature Potassium 4.8 3.4 - 5.3 [facility] mmol/L CAMPUS LABS Specimen Anatomical Collection Method Collection Time Receive d Time (Source) Location / / Volume Laterality Blood specimen 02/03/2014 10:11 4 (specimen) AM CDT 10:23 AM CDT Caitlin Owens MD LAB - BLOOD ORDERABLES Performing Organization Address City/[facility]/ZIP Code Phon e Number [address] LABS (ABNORMAL) Hemoglobin (02/03/2014 10:11 AM CDT) P athologist Signature Hemoglobin 9.7 (L) 13.3 - 17.7 [facility] g/dL [facility] Specimen Anatomical Collection Method Collection Time Receive d Time (Source) Location / / Volume Laterality Blood specimen 02/03/2014 10:11 4 (specimen) AM CDT 10:23 AM CDT Caitlin Owens MD LAB - BLOOD ORDERABLES Performing Organization Address [facility] Phon e Number [address] LABS (ABNORMAL) Glucose by meter (02/03/2014 9:58 AM CDT) P athologist Signature Glucose 168 (H) 60 - 99 POINT OF CARE mg/dL TEST, GLUCOSE Specimen Anatomical Collection Method Collection Time Receive d Time (Source) Location / / Volume Laterality 02/03/2014 9:58 AM 4 CDT 10:00 AM CDT Migel Merchant MD LAB - BEAKER POCT Performing Organization Address City/[facility]/ZIP Code Phon e Number FV POINT [...] LAB - BEAKER POCT Performing Organization Address City/[facility]/ZIP Code Phon e Number FV POINT [...] LARES - ROBERT POCT Performing Organization Address City/[facility]/ZIP Code Phon e Number FV POINT [...] LARES - ROBERT POCT Performing Organization Address City/[facility]/ZIP Code Phon e Number FV POINT [...] Basic metabolic panel (02/03/2014 5:38 AM CDT) [facility] gist Method Time Signature Sodium 141 133 - 144 [facility] mmol/L [facility] Potassium 4.4 3.4 - 5.3 [facility] mmol/L [facility] Chloride 105 94 - 109 [facility] mmol/L [facility] Carbon Dioxide 20 20 - 32 [facility] mmol/L [facility] Anion Gap 15 6 - 17 [facility] mmol/L [facility] Glucose 170 (H) 60 - 99 [facility] mg/dL [facility] Urea Nitrogen 49 (H) 7 - 30 [facility] mg/dL [facility] Creatinine 6.38 (H) 0.66 - [facility] 1.25 mg/dL [facility] GFR Estimate 9 (L) >60 [facility] mL/min/1.7 [place] m2 [facility] GFR Estimate If 11 (L) >60 [facility] Black mL/min/1.7 [place] m2 CAMPUS LABS Calcium 9.1 8.5 - 10.4 [facility] mg/dL [facility] Specimen Anatomical Collection Method Collection Time Receive d Time (Source) Location / / Volume Laterality Blood specimen 02/03/2014 5:38 AM 014 5:40 (specimen) CDT AM CDT Omaira Chavez PA-C LAB - BLOOD ORDERABLES Performing Organization Address City/[facility]/ZIP Code Phon e Number [facility] [address] LABS (ABNORMAL) Phosphorus (02/03/2014 5:38 AM CDT) P athologist Signature Phosphorus 4.7 (H) 2.5 - 4.5 [facility] [place] mg/dL [facility] Specimen Anatomical Collection Method Collection Time Receive d Time (Source) Location / / Volume Laterality Blood specimen 02/03/2014 5:38 AM 014 5:40 (specimen) CDT AM CDT Omaira Chavez PA-C LAB - BLOOD ORDERABLES Performing Organization Address City/State/ZIP Code Phon e Number [facility] [address] LABS Magnesium (02/03/2014 5:38 AM CDT) P athologist Signature Magnesium 2.0 1.6 - 2.3 [facility] [place] mg/dL [facility] Specimen Anatomical Collection Method Collection Time Receive d Time (Source) Location / / Volume Laterality Blood specimen 02/03/2014 5:38 AM 014 5:40 (specimen) CDT AM CDT Omaira Chavez PA-C LAB - BLOOD ORDERABLES Performing Organization Address City/State/ZIP Code Phon e Number [id number] [place] [address] [facility] (ABNORMAL) CBC with platelets differential (02/03/2014 5:38 AM CDT) [facility] gist Method Time Signature WBC 13.2 (H) 4.0 - [facility] 11.0 [facility] 10e9/L CAMPUS LABS RBC Count 3.20 (L) 4.4 - 5.9 [facility] 10e12/L [facility] Hemoglobin 9.9 (L) 13.3 - [facility] 17.7 g/dL [facility] Hematocrit 30.2 (L) 40.0 - [facility] 53.0 % [facility] MCV 94 78 - 100 [facility] fl [facility] MCH 30.9 26.5 - [facility] 33.0 pg [facility] MCHC 32.8 31.5 - [facility] 36.5 g/dL [facility] RDW 14.5 10.0 - [facility] 15.0 % [facility] Platelet Count 108 (L) 150 - 450 [facility] 10e9/L [facility] Diff Method Automated [facility] Method [facility] % Neutrophils 96.9 % [facility] LABS % Lymphocytes 0.7 % [facility] LABS % Monocytes 2.1 % [facility] LABS % Eosinophils 0.0 % [facility] LABS % Basophils 0.1 % [facility] LABS % Immature 0.2 % [facility] Granulocytes [facility] Absolute 12.8 (H) 1.6 - 8.3 [facility] Neutrophil 10e9/L [facility] Absolute 0.1 (L) 0.8 - 5.3 [facility] Lymphocytes 10e9/L [facility] Absolute 0.3 0.0 - 1.3 [facility] Monocytes 10e9/L [facility] Absolute 0.0 0.0 - 0.7 [facility] Eosinophils 10e9/L [facility] Absolute 0.0 0.0 - 0.2 [facility] Basophils 10e9/L [facility] Abs Immature 0.0 0 - 0.4 [facility] Granulocytes 10e9/L [facility] Specimen Anatomical Collection Method Collection Time Receive d Time (Source) Location / / Volume Laterality Blood specimen 02/03/2014 5:38 AM 014 5:40 (specimen) CDT AM CDT Omaira Chavez PA-C LAB - BLOOD ORDERABLES Performing Organization Address City/[facility]/ZIP Code Phon e Number [facility] [address] LABS (ABNORMAL) Hemoglobin A1c (02/03/2014 5:38 AM CDT) Analysis Performed At Patho logist Time Signature Hemoglobin A1C 6.2 (H) 4.3 - 6.0 [facility] Specimen Anatomical Collection Method Collection Time Receive d Time (Source) Location / / Volume Laterality Blood specimen 02/03/2014 5:38 AM 014 5:40 (specimen) CDT AM CDT Caitlin Owens MD LAB - BLOOD ORDERABLES Performing Organization Address City/[facility]/ZIP Code Phon e Number [address] LABS (ABNORMAL) Glucose by meter (02/03/2014 5:05 AM CDT) P athologist Signature Glucose 176 (H) 60 - 99 POINT OF CARE mg/dL TEST, GLUCOSE Specimen Anatomical Collection Method Collection Time Receive d Time (Source) Location / / Volume Laterality 02/03/2014 5:05 AM 4 5:10 CDT AM CDT Migel Merchant MD LAB - BEAKER POCT Performing Organization Address City/[facility]/ZIP Code Phon e Number FV POINT [...] LAB - BEAKER POCT Performing Organization Address City/[facility]/ZIP Code Phon e Number FV POINT [...] LAB - BEAKER POCT Performing Organization Address City/[facility]/ZIP Code Phon e Number FV POINT OF CARE TEST, GLUCOSE POINT OF CARE TEST, GLUCOSE Potassium (02/03/2014 1:18 AM CDT) athologist Signature Potassium 4.7 3.4 - 5.3 [facility] mmol/L CAMPUS LABS Specimen Anatomical Collection Method Collection Time Receive d Time (Source) Location / / Volume Laterality Blood specimen 02/03/2014 1:18 AM 014 1:20 (specimen) CDT AM CDT Caitlin Owens MD LAB - BLOOD ORDERABLES Performing Organization Address City/[facility]/ZIP Code Phon e Number [address] [address] [facility] LABS (ABNORMAL) Hemoglobin (02/03/2014 1:18 AM CDT) athologist Signature Hemoglobin 9.8 (L) 13.3 - 17.7 [facility] g/dL [place] LABS Specimen Anatomical Collection Method Collection Time Receive d Time (Source) Location / / Volume Laterality Blood specimen 02/03/2014 1:18 AM 014 1:20 (specimen) CDT AM CDT Caitlin Owens MD LAB - BLOOD ORDERABLES Performing Organization Address City/State/ZIP Code Phon e Number [facility] [address] [place] [address] [facility] LABS (ABNORMAL) Glucose by meter (02/03/2014 1:16 [...] LAB - BEAKER POCT Performing Organization Address City/[facility]/ZIP Code Phon e Number FV POINT [...] athologist Signature Phosphorus 4.4 2.5 - 4.5 [facility] mg/dL [place] LABS Specimen Anatomical Collection Method Collection Time Receive d Time (Source) Location / / Volume Laterality Blood specimen 02/02/2014 10:50 4 (specimen) PM CDT 11:06 PM CDT Caitlin Owens MD LAB - BLOOD ORDERABLES Performing Organization Address City/State/ZIP Code Phon e Number [facility] [address] [place] [address] [facility] LABS Magnesium (02/02/2014 10:50 PM CDT) P athologist Signature Magnesium 1.8 1.6 - 2.3 [facility]ERSITY mg/dL CAMPUS LABS Specimen Anatomical Collection Method Collection Time Receive d Time (Source) Location / / Volume Laterality Blood specimen 02/02/2014 10:50 4 (specimen) PM CDT 11:06 PM CDT Caitlin Owens MD LAB - BLOOD ORDERABLES Performing Organization Address City/[facility]/ZIP Code Phon e Number [facility] [address] [place] [address] [facility] LABS (ABNORMAL) Basic metabolic panel (02/02/2014 10:50 PM CDT) [facility] Method Time Signature Sodium 138 133 - 144 [facility] mmol/L [facility] LABS Potassium 4.5 3.4 - 5.3 [facility] mmol/L [facility] LABS Chloride 104 94 - 109 [facility] mmol/L [facility] LABS Carbon Dioxide 25 20 - 32 [facility] mmol/L [facility] LABS Anion Gap 10 6 - 17 [facility] mmol/L [facility] LABS Glucose 134 (H) 60 - 99 [facility] mg/dL [facility] LABS Urea Nitrogen 44 (H) 7 - 30 [facility] mg/dL [facility] LABS Creatinine 6.14 (H) 0.66 - [facility] 1.25 mg/dL [facility] LABS GFR Estimate 9 (L) >60 [facility] mL/min/1.7 [place] m2 CAMPUS LABS GFR Estimate If 11 (L) >60 [facility] Black mL/min/1.7 [place] m2 CAMPUS LABS Calcium 8.8 8.5 - 10.4 [facility] mg/dL [facility] LABS Specimen Anatomical Collection Method Collection Time Receive d Time (Source) Location / / Volume Laterality Blood specimen 02/02/2014 10:50 4 (specimen) PM CDT 11:06 PM CDT Caitlin Owens MD LAB - BLOOD ORDERABLES Performing Organization Address City/State/ZIP Code Phon e Number [facility] [address] [place] [address] [facility] LABS (ABNORMAL) CBC with platelets differential (02/02/2014 10:50 PM CDT) Patholo gist Method Time Signature WBC 8.2 4.0 - [facility] 11.0 [facility] 10e9/L [place] LABS RBC Count 3.34 (L) 4.4 - 5.9 [facility] 10e12/L [facility] LABS Hemoglobin 10.3 (L) 13.3 - [facility] 17.7 g/dL [facility] LABS Hematocrit 30.9 (L) 40.0 - [facility] 53.0 % [facility] MCV 93 78 - 100 [facility] fl [facility] MCH 30.8 26.5 - [facility] 33.0 pg [facility] MCHC 33.3 31.5 - [facility] 36.5 g/dL [facility] LABS RDW 14.3 10.0 - [facility] 15.0 % [facility] Platelet Count 79 (L) 150 - 450 [facility] 10e9/L [facility] LABS Diff Method Automated [facility] Method [facility] % Neutrophils 96.7 % [facility] LABS % Lymphocytes 1.6 % [facility] LABS % Monocytes 1.2 % [facility] % Eosinophils 0.4 % [facility] % Basophils 0.0 % [facility] % Immature 0.1 % [facility] Granulocytes [facility] Absolute 7.9 1.6 - 8.3 [facility] Neutrophil 10e9/L [facility] LAB[facility] Absolute 0.1 (L) 0.8 - 5.3 [facility] Lymphocytes 10e9/L [facility] LAB[facility] Absolute 0.1 0.0 - 1.3 [facility] Monocytes 10e9/L [facility] Absolute 0.0 0.0 - 0.7 [facility] Eosinophils 10e9/L [facility] Absolute 0.0 0.0 - 0.2 [facility] Basophils 10e9/L [facility] Abs Immature 0.0 0 - 0.4 [facility] Granulocytes 10e9/L [facility] LABS Specimen Anatomical Collection Method Collection Time Receive d Time (Source) Location / / Volume Laterality Blood specimen 02/02/2014 10:50 4 (specimen) PM CDT 11:06 PM CDT Caitlin Owens MD LAB - BLOOD ORDERABLES Performing Organization Address City/State/ZIP Code Phon e Number [facility] [address] [place] [address] [facility] (ABNORMAL) VENOUS PANEL (02/02/2014 10:09 PM CDT) Patholo gist Method Time Signature Ph Venous 7.31 (L) 7.32 - [facility] 7.43 pH [facility] LABS PCO2 Venous 52 (H) 40 - 50 [facility] mm Hg [facility] PO2 Venous 34 25 - 47 [facility] mm Hg [facility] LABS Bicarbonate 26 21 - 28 [facility] Venous mmol/L [facility] LABS Base Deficit 0.3 mmol/L [facility] Venous [facility] LABS Comment: Reference range: -7.7 to 1.9 F[facility]2 45 [facility] LABS Sodium 137 133 - 144 mmol/L [facility] LABS Potassium 4.4 3.4 - 5.3 mmol/L [facility] LABS Hemoglobin 10.0 (L) 13.3 - 17.7 g/dL [facility] LABS Glucose 116 (H) 60 - 99 mg/dL [facility] LABS Calcium Ionized Whole Blood 4.8 4.4 - 5.2 mg/dL [facility] LABS Specimen Anatomical Collection Method Collection Time Receive d Time (Source) Location / / Volume Laterality 02/02/2014 10:09 02/02/2014 PM CDT 10:14 PM CDT Migel Merchant MD LAB - BLOOD ORDERABLES Performing Organization Address City/State/ZIP Code Phon e Number [address] LABS (ABNORMAL) Glucose by meter (02/02/2014 [...] Venous 7.35 7.32 - [facility] 7.43 pH [facility] LABS PCO2 Venous 50 40 - 50 mm [facility] Hg [facility] PO2 Venous 46 25 - 47 mm [facility] Hg [facility] Bicarbonate 28 21 - 28 [facility] Venous mmol/L [facility] LABS Base Excess 1.8 mmol/L [facility] Venous [facility] LABS Comment: Reference range: -7.7 to 1.9 F[facility]2 100% [facility] LABS Sodium 141 133 - 144 mmol/L [facility] LABS Potassium 3.7 3.4 - 5.3 mmol/L [facility] LABS Hemoglobin 10.3 (L) 13.3 - 17.7 g/dL [facility] LABS Glucose 76 60 - 99 mg/dL [facility] LABS Calcium Ionized Whole Blood 4.8 4.4 - 5.2 mg/dL [facility] LABS Specimen Anatomical Collection Method Collection Time Receive d Time (Source) Location / / Volume Laterality 02/02/2014 6:40 PM 4 6:44 CDT PM CDT Migel Merchant MD LAB - BLOOD ORDERABLES Performing Organization Address City/[facility]/ZIP Code Phon e Number [address] [address] [facility] LABS Glucose by meter (02/02/2014 5:11 PM [...] 3:50 CDT PM CDT Migel Merchant MD [facility] POCT Performing [...] MARYELLEN Blood component (02/02/2014 2:07 PM CDT) [facility] Method Time Signature Unit Number [id number] [facility] LABS Blood Red Blood [facility] Component Cells [facility] Leukocyte [place] LABS Reduced Division 00 [facility] LABS Status of No longer [place] Unit available [facility] 02/06/2014 HOSPITAL LAB 0300 Specimen Anatomical Collection Method Collection Time Receive d Time (Source) Location / / Volume Laterality 02/02/2014 2:07 PM 4 2:10 CDT PM CDT Caitlin Owens MD LABORATORY Performing Organization Address City/[facility]/ZIP Code Phon santino Acevedo [place] [address] [place], [place] [address] [facility] [address] [facility] LAB Blood component (02/02/2014 2:07 PM CDT) [facility] gist Method Time Signature Unit Number [id number] [facility] LABS Blood Red Blood [facility] Component Cells [facility] LABS Reduced Division 00 [facility] LABS Status of No longer [place] Unit available [facility] 02/06/2014 HOSPITAL LAB 0300 Specimen Anatomical Collection Method Collection Time Receive d Time (Source) Location / / Volume Laterality 02/02/2014 2:07 PM 4 2:10 CDT PM CDT Caitlin Owens MD LABORATORY Performing Organization Address City/[facility] Code Phon santino Acevedo [place] [address] [place], [place] [address] [facility] LAB ABO/Rh type and screen (02/02/2014 2:07 PM CDT) [facility] gist Method Time Signature Units Ordered 2 [facility] LABS ABO A [facility] LABS RH(D) Pos [facility] LABS Antibody Neg [facility] Screen [facility] LABS Test Valid [facility] Only At [facility] BLOOD BANK Center,Aide LAB w Hospital Specimen 02/05/2014 [facility] BLOOD BANK LAB Crossmatch Red Blood [facility] Cells [facility] LABS Specimen Anatomical Collection Method Collection Time Receive d Time (Source) Location / / Volume Laterality Blood specimen 02/02/2014 2:07 PM 014 2:10 (specimen) CDT PM CDT Caitlin Owens MD LAB - BLOOD BANK TEST ORDER Performing Organization Address City/[facility]/ZIP Code Phon e Number [facility] [address] [place] [address] [facility] LABS [facility] BLOOD BANK LAB (ABNORMAL) Lipid Profile (02/02/2014 2:07 PM CDT) P athologist Signature Cholesterol 135 <200 mg/dL [facility] LABS Comment: LDL Cholesterol is the primary guide to therapy. The NCEP recommends further evaluation of: patients with cholesterol greater than 200 mg/dL if additional risk facto rs are present, cholesterol greater than 240 mg/dL, triglycerides greater than 1 50 mg/dL, or HDL less than 40 mg/dL. Triglycerides 124 0 - 150 mg/dL [facility] LABS HDL Cholesterol 34 (L) >40 mg/dL [facility] LABS LDL Cholesterol Calculated 77 0 - 129 mg/dL [facility] LABS Comment: LDL Cholesterol is the primary guide to therapy: LDL-cholesterol goal in high risk patients is <100 mg/dL and in very high risk patients is <70 mg/dL. VLDL-Cholesterol 25 0 - 30 mg/dL [facility] LABS Cholesterol/HDL Ratio 4.0 0.0 - 5.0 [facility] LABS Specimen Anatomical Collection Method Collection Time Receive d Time (Source) Location / / Volume Laterality Blood specimen 02/02/2014 2:07 PM 014 2:08 (specimen) CDT PM CDT Caitlin Owens MD LAB - BLOOD ORDERABLES Performing Organization Address City/[facility]/ZIP Code Phon e Number [facility] [address] [place] [address] [facility] LABS (ABNORMAL) Hemoglobin A1c (02/02/2014 2:07 PM CDT) Analysis Performed At Patho logist Time Signature Hemoglobin A1C 6.2 (H) 4.3 - 6.0 [facility] LABS Specimen Anatomical Collection Method Collection Time Receive d Time (Source) Location / / Volume Laterality Blood specimen 02/02/2014 2:07 PM 014 2:08 (specimen) CDT PM CDT Caitlin Owens MD LAB - BLOOD ORDERABLES Performing Organization Address City/State/ZIP Code Phon e Number [facility] [address] [place] [address] [facility] LABS Hepatitis C antibody (02/02/2014 2:07 PM CDT) [facility] Signature Hepatitis C Negative NEG [facility] Antibody MICROBIOLOGY Specimen Anatomical Collection Method Collection Time Receive d Time (Source) Location / / Volume Laterality Blood specimen 02/02/2014 2:07 PM 02/02/2 014 2:08 (specimen) CDT PM CDT Caitlin Owens MD LAB - BLOOD ORDERABLES Performing Organization Address City/[facility]/ZIP Code Phon e Number [facility] [address] [place] [address] [facility] MICROBIOLOGY Hepatitis B core antibody IgM (02/02/2014 2:07 PM CDT) [facility] Signature Hepatitis B Negative NEG [facility] Core IgM MICROBIOLOGY Specimen Anatomical Collection Method Collection Time Receive d Time (Source) Location / / Volume Laterality Blood specimen 02/02/2014 2:07 PM 014 2:08 (specimen) CDT PM CDT Caitlin Owens MD LAB - BLOOD ORDERABLES Performing Organization Address City/State/ZIP Code Phon e Number [facility] [address] [place], [place] [id number] [place] [address] MICROBIOLOGY Hepatitis B surface antigen (02/02/2014 2:07 PM CDT) [facility] Signature Hep B Surface Negative NEG [facility] Agn MICROBIOLOGY Specimen Anatomical Collection Method Collection Time Receive d Time (Source) Location / / Volume Laterality Blood specimen 02/02/2014 2:07 PM 014 2:08 (specimen) CDT PM CDT Caitlin Owens MD LAB - BLOOD ORDERABLES Performing Organization Address City/[facility]/ZIP Code Phon e Number [facility] [address] [place], [place] [id number] [place] [address] MICROBIOLOGY HIV Antigen Antibody Combo (02/02/2014 2:07 PM CDT) [facility] Signature HIV Antigen Nonreactive NR [facility] Antibody HIV-1 p24 Ag & HIV-1/HIV-2 Ab Not Detected [facility] LABS Specimen Anatomical Collection Method Collection Time Receive d Time (Source) Location / / Volume Laterality Blood specimen 02/02/2014 2:07 PM 014 2:08 (specimen) CDT PM CDT Caitlin Owens MD LAB - BLOOD ORDERABLES Performing Organization Address City/[facility]/ZIP Code Phon e Number [address] LABS EBV Capsid Antibody IgM (02/02/2014 2:07 PM CDT) [facility] Method Time Signature EBV Capsid <0.2 0.0 - 0.8 [facility] Antibody IgM No detectable antibody. AI [facility] LABS Specimen Anatomical Collection Method Collection Time Receive d Time (Source) Location / / Volume Laterality Blood specimen 02/02/2014 2:07 PM 014 2:08 (specimen) CDT PM CDT Caitlin Owens MD LAB - BLOOD ORDERABLES Performing Organization Address [facility] Code Phon e Number [address] LABS (ABNORMAL) EBV Capsid Antibody IgG (02/02/2014 2:07 PM CDT) [facility] Method Time Signature EBV Capsid >8.0 0.0 - 0.8 [facility] Antibody IgG Positive, suggests recent or past exposure [facility] () [place] LABS Specimen Anatomical Collection Method Collection Time Receive d Time (Source) Location / / Volume Laterality Blood specimen 02/02/2014 2:07 PM 014 2:08 (specimen) CDT PM CDT Caitlin Owens MD LAB - BLOOD ORDERABLES Performing Organization Address City/[facility]/ZIP Code Phon e Number [address] LABS CMV antibody IgM (02/02/2014 2:07 PM CDT) [facility] Signature CMV Antibody <0.2 0.0 - 0.8 [facility] IgM Negative [facility] LABS Specimen Anatomical Collection Method Collection Time Receive d Time (Source) Location / / Volume Laterality Blood specimen 02/02/2014 2:07 PM 014 2:08 (specimen) CDT PM CDT Caitlin Owens MD LAB - BLOOD ORDERABLES Performing Organization Address City/[facility]/[place] [address] [facility] LABS (ABNORMAL) CMV Antibody IgG (02/02/2014 2:07 PM CDT) P athologist Signature CMV Antibody 7.8 (H) 0.0 - 0.8 [facility] IgG AI [facility] LABS Comment: Positive Specimen Anatomical Collection Method Collection Time Receive d Time (Source) Location / / Volume Laterality Blood specimen 02/02/2014 2:07 PM 014 2:08 (specimen) CDT PM CDT Caitlin Owens MD LAB - BLOOD ORDERABLES Performing Organization Address City/State/ZIP Code Phon e Number [facility] [address] [place] [address] [facility] LABS (ABNORMAL) Comprehensive metabolic panel (02/02/2014 2:07 PM CDT) Patholo gist Method Time Signature Sodium 141 133 - 144 [facility] mmol/L [facility] LABS Potassium 4.2 3.4 - 5.3 [facility] mmol/L [facility] Chloride 101 94 - 109 [facility] mmol/L [facility] Carbon Dioxide 26 20 - 32 [facility] mmol/L [facility] Anion Gap 13 6 - 17 [facility] mmol/L [facility] [facility] Glucose 112 (H) 60 - 99 [facility] mg/dL [facility] Urea Nitrogen 42 (H) 7 - 30 [facility] mg/dL [facility] Creatinine 6.03 (H) 0.66 - [facility] 1.25 UNIVERSITY mg/dL CAMPUS LABS GFR Estimate 9 (L) >60 [facility] mL/min/1. [address] LABS GFR Estimate If 11 (L) >60 [facility] Black mL/min/1. [address] LABS Calcium 9.9 8.5 - [facility] 10.4 UNIVERSITY mg/dL CAMPUS LABS Bilirubin Total 0.7 0.2 - 1.3 [facility] mg/dL [facility] Albumin 4.2 3.3 - 4.9 [facility] g/dL [facility] Protein Total 7.5 6.8 - 8.8 [facility] g/dL [facility] Alkaline 88 40 - 150 [facility] Phosphatase U/L [facility] ALT 33 0 - 70 [facility] U/L [facility] AST 18 0 - 45 [facility] U/L [facility] Specimen Anatomical Collection Method Collection Time Receive d Time (Source) Location / / Volume Laterality Blood specimen 02/02/2014 2:07 PM 014 2:08 (specimen) CDT PM CDT Caitlin Owens MD LAB - BLOOD ORDERABLES Performing Organization Address City/State/ZIP Code Phon e Number [facility] [address] [place] [address] [facility] (ABNORMAL) CBC with platelets differential (02/02/2014 2:07 PM CDT) [facility] gist Method Time Signature WBC 6.3 4.0 - [facility] 11.0 UNIVERSITY 10e9/L CAMPUS LABS RBC Count 3.71 (L) 4.4 - 5.9 [facility] 10e12/L [facility] Hemoglobin 11.5 (L) 13.3 - [facility] 17.7 g/dL [facility] Hematocrit 33.7 (L) 40.0 - [facility] 53.0 % [facility] MCV 91 78 - 100 [facility] fl [facility] MCH 31.0 26.5 - [facility] 33.0 pg [facility] MCHC 34.1 31.5 - [facility] 36.5 g/dL [facility] RDW 14.0 10.0 - [facility] 15.0 % UNIV[facility]ITY [facility] Platelet Count 110 (L) 150 - 450 [facility] 10e9/L [facility] Diff Method Automated [facility] Method [facility] % Neutrophils 52.4 % [facility] LABS % Lymphocytes 32.1 % [facility] LABS % Monocytes 7.9 % [facility] LABS % Eosinophils 7.1 % [facility]S % Basophils 0.3 % [facility] % Immature 0.2 % [facility] Granulocytes [facility] Absolute 3.3 1.6 - 8.3 [facility] Neutrophil 10e9/L [facility] Absolute 2.0 0.8 - 5.3 [facility] Lymphocytes 10e9/L [facility] Absolute 0.5 0.0 - 1.3 [facility] Monocytes 10e9/L [facility] Absolute 0.5 0.0 - 0.7 [facility] Eosinophils 10e9/L [facility] Absolute 0.0 0.0 - 0.2 [facility] Basophils 10e9/L [facility] Abs Immature 0.0 0 - 0.4 [facility] Granulocytes 10e9/L [facility] Specimen Anatomical Collection Method Collection Time Receive d Time (Source) Location / / Volume Laterality Blood specimen 02/02/2014 2:07 PM 014 2:08 (specimen) CDT PM CDT Caitlin Owens MD LAB - BLOOD ORDERABLES Performing Organization Address City/[facility]/ZIP Code Phon e Number [address] LABS Creatinine urine calculation only (02/02/2014 2:00 PM CDT) P athologist Signature Creatinine 88 mg/dL [facility] Urine [place] [facility] [facility] Specimen Anatomical Collection Method Collection Time Receive d Time (Source) Location / / Volume Laterality 02/02/2014 2:00 PM 4 2:12 CDT PM CDT Caitlin Owens MD LAB - URINE ORDERABLES Performing Organization Address City/[facility] Phon e Number [address] LABS (ABNORMAL) Urine culture (02/02/2014 2:00 PM CDT) Component Value Ref Test Analysis Performed At [facility] Range Method Time Signature Specimen Midstream Urine [facility] Description [facility] Special Specimen received [facility] Requests in preservative MICROBIOLOGY Culture Micro <10,000 colonies/mL Gram pos itive cocci No further identification Susceptibility [facility] testing not routinely done IN CROBIOLOGY <10,000 [...] MICRO GENERAL ORDERABL ES Performing Organization Address City/[facility]/ZIP Code Phon e Number [address] LABS [facility] MICROBIOLOGY (ABNORMAL) Protein random urine (02/02/2014 2:00 PM CDT) [facility] [employer] Method Time Signature Protein Random 1.89 g/L [facility] Urine [facility] Protein Total 2.15 (H) 0 - 0.2 [facility] Urine g/gr g/g Cr UNIVERSITY Creatinine CAMPUS LABS Specimen Anatomical Collection Method Collection Time Receive d Time (Source) Location / / Volume Laterality Urine specimen URINE SPECIMEN 02/02/2014 2:00 PM 02/02 2:12 (specimen) OBTAINED BY CLEAN CDT PM CDT CATCH PROCEDURE / Unknown Caitlin Owens MD LAB - URINE ORDERABLES Performing Organization Address City/[facility]/ZIP Code Phon e Number [address] LABS (ABNORMAL) Routine UA with microscopic (02/02/2014 2:00 PM CDT) Patholo gist Method Time Signature Color Urine Light Yellow [facility] UNIVERSITY CAMPUS LABS Appearance Urine Clear [facility] LABS Glucose Urine 70 (A) NEG mg/dL [facility] UNIVERSITY CAMPUS LABS Bilirubin Urine Negative NEG [facility] UNIVERSITY CAMPUS LABS Ketones Urine Negative NEG mg/dL [facility] UNIVERSITY [facility] Specific [place] 1.008 1.003 - [facility] Urine 1.035 UNIVERSITY [...] CAMPUS LABS Source Clean catch [facility] urine [facility] WBC Urine 1 0 - 2 [...] LAB - URINE ORDERABLES Performing Organization Address City/[facility]/ZIP Code Phon e Number [facility] [address] [place] [address] [facility] LABS (ABNORMAL) Glucose by meter (02/02/2014 1:59 PM CDT) P athologist Signature Glucose 115 (H) 60 - 99 POINT OF CARE mg/dL TEST, GLUCOSE Specimen Anatomical Collection Method Collection Time Receive d Time (Source) Location / / Volume Laterality 02/02/2014 1:59 PM 4 2:05 CDT PM CDT Migel Merchant MD LAB - BEAKER POCT Performing Organization Address City/[facility]/ZIP Code Phon e Number [facility] POINT OF CARE TEST, GLUCOSE POINT OF CARE TEST, GLUCOSE EKG 12-lead, tracing only (02/02/2014 1:58 PM CDT) [facility] gist Method Time Signature Interpretation ECG Click View RADIOLOGY Image link RESULTS to view waveform and result Specimen (Source) Anatomical Collection Method Collection Time Re ceived Time Location / / Volume Laterality 02/02/2014 1:58 PM CDT Caitlin Owens MD ECG ORDERABLES Performing Organization Address [facility] Phon e Number RADIOLOGY RESULTS documented in [...] dose, When verbally ordered by the prescriber. [place] throat with 1-4 sprays 5 minutes prior [...] 20 mg 20 mg, Intravenous, ONCE, On [place] 02/07/14 at 1100, For 1 dose furosemide [...] 11:15 PM CDT 0.4 mg HYDROmorphone (DILAUDID) SELF DEFENSE INSTRUCTOR 1 mg/mL Shift Total 02/03/2014 6:24 AM CDT SELF DEFENSE INSTRUCTOR dose (mg): 0.1, Max SELF DEFENSE INSTRUCTOR dose (mg): 0.2, Lockout Interval (min): 10 minutes, SELF DEFENSE INSTRUCTOR Continuous Rate (mg/hr): CONTINUOUS RATE IS NOT [...] dose, When verbally ordered by the prescriber. [place] throat with 1-4 sprays 5 minutes prior [...] Lashaun Braswell RN) 20 mg, Intravenous, ONCE, [facility] 02/07/14 at 1100, For 1 dose insulin [...] (Not Gi isael - Provider: Lynne Gatica [facility] - Reason: Other - Comment: Dose already received, see previous order) 0838 (Given - Provider: Lashaun Braswell RN)1820 (Given - Provider: Lashaun Braswell RN) 0809 (Given - Provider: Amnada low RN) 1.5 mg, Oral, 2 TIMES [...] draw. documented in this encounter Care Teams Customer Solutions Specialist Relationship Specialty Start Date End Date Momo Forbes PCP - General Family Practice 01/02/14 [facility] [address] [place] [address] Ingrid Santana, RN Registered Nurse Transplant 02/10/12 10/01/15 documented as of this encounter
--- OUTSIDE RECORDS SUMMARY | 2022-04-07 11:12 | XMS_ITS | Encounter Summary ---
:1950 Author Organization [place] Address [facility] [place] [address] Care Team Providers Name Role Phone Ingrid Santana RN Unavailable Momo Forbes Primary Care Provider Reason for Visit Reason Comments Transplant Donor culture results Encounter Details Date Type Department Care Team Description 02/04/2014 Documentation Only The Transplant Gladis Yeboah, Transplant (Donor 2nd Floor, Clinic 2A RN culture results) [address] [place] [phone] Social History Tobacco Use Types Packs/Day Years [...] as of this encounter Progress Notes Gladis Ssoa RN - 02/04/2014 1:55 PM CDT Positive respiratory and urine cultures have been uploaded into [employer]. Notification sent to Dr. Rust and Dr. Hernandes. documented in this encounter Plan of Treatment Not on filedocumented as of this encounter Visit Diagnoses Not on filedocumented in this encounter Care Teams Welder Manufacture Relationship Specialty Start Date End Date Momo oFrbes PCP - General Family Practice 01/02/14 [facility] [address] [place] [address] Ingrid Santana, RN Registered Nurse Transplant 02/10/12 10/01/15 documented as of this encounter
--- OUTSIDE RECORDS SUMMARY | 2022-04-07 11:12 | XMS_ITS | Encounter Summary ---
:1950 Author Organization [place] Address [address] [place] [address]. [place] [address] Care Team Providers Name Role Phone Ingrid Santana RN Unavailable Momo Forbes Primary Care Provider Encounter Details Date Type Department Care Team Description 02/02/2014 Abstract The Transplant [facility] 2nd Floor, Clinic [address]A [address] [phone] Social History Tobacco Use [...] on filedocumented in this encounter Care Teams Senior Reliability Engineer Relationship Specialty Start Date End Date Momo Forbes PCP - General Family Practice 01/02/14 [facility] [address] [place] [address] Ingrid Santana RN Registered Nurse Transplant 02/10/12 10/01/15 documented as of this encounter
--- OUTSIDE RECORDS SUMMARY | 2022-04-07 11:12 | XMS_ITS | Encounter Summary ---
:1950 Author Organization [place] Address [facility] [place] [address] Care Team Providers Name Role Phone Ingrid Santana RN Unavailable Momo Forbes Primary Care Provider Encounter Details Date Type Department Care Team Description 02/02/2014 Results Only LABORATORY RESULTS Migel Merchant MD [address] [place] [address] (Wo rk) Social History Tobacco Use [...] T/B Crossmatch Auto (02/02/2014 6:51 PM CDT) [facility] Method Time Signature Crossmatch Donor:ELINOR GUTHRIE [...] Phon e Number [facility] Immunology/Histocompatabil [place], [place] [address] [facility] [address], Room 3-580 HISTOTRAC documented in this encounter Visit Diagnoses Not on filedocumented in this encounter Care Teams Electric Motor Winders Assembler Relationship Specialty Start Date End Date Momo Forbes PCP - General Family Practice 01/02/14 [facility] [address] [place] [address] Ingrid Santana, RN Registered Nurse Transplant 02/10/12 10/01/15 documented as of this encounter
--- OUTSIDE RECORDS SUMMARY | 2022-04-07 11:12 | XMS_ITS | Encounter Summary ---
:1950 Author Organization [place] Address [address] [facility] [place] [address] Care Team Providers Name Role Phone Ingrid Santana RN Unavailable Momo Forbes Primary Care Provider Encounter Details Date Type Department Care Team Description 02/02/2014 Results Only LABORATORY RESULTS Migel Merchant MD [address] [place] [address] [address] [place] [address] (Wo rk) Social History Tobacco [...] II Single Antigen (02/02/2014 6:51 PM CDT) [facility] Method Time Signature SA2 Test [...] Phon e Number [facility] Immunology/Histocompatabil [place], [place] [address] ity [facility] [address] Building, Room 3-580 HISTOTRAC documented in this encounter Visit Diagnoses Not on filedocumented in this encounter Care Teams Plastic Injection Mold Maker Relationship Specialty Start Date End Date Momo Forbes PCP - General Family Practice 01/02/14 [facility] [address] [place] [address] Ingrid Santana, RN Registered Nurse Transplant 02/10/12 10/01/15 documented as of this encounter
--- OUTSIDE RECORDS SUMMARY | 2022-04-07 11:13 | XMS_ITS | Encounter Summary ---
:1950 Author Organization [place] Address [address] [place] [address]. [place] [address] Care Team Providers Name Role Phone Ingrid Santana RN Unavailable Momo Forbes Primary Care Provider Reason for Visit Auth/Cert - Closed Specialty Diagnoses / Procedures Referred By Contact Refer red To Contact Med Surg Diagnoses end stage renal disease dialysis End stage renal failure on dialysis Renal Failure Uu U7a Procedures TRANSPLANT KIDNEY RECIPIENT DONOR [address] [place] [address] Phone: Referral ID Status Reason Start Date Expiration Date Visits Requ ested Visits Authorized [id number] Closed 02/04/2014 08/03/2014 1 1 Encounter Details Date Type Department Care Team Description 02/02/[address] [facility] Joseph Ivey MD XXX RESIGNED XXX [address] [place], [place] [phone] PeriOp Services Leigh Ann Blank MD [address] [facility] [address] [place] [address] [address] [place] [address] Anesthesia Record Procedure Summary Procedure [...] Hand Inez Mckeon Sara E RN Saima, BUSINESS SUPPORT ADMINISTRATOR RETIRED ETT 02/02/14; 1753; Airway 02/02/14 1753 [...] Take 1 tablet by mouth daily. B yxextmd-K-jalbg acid (NEPHROCAPS) 1 MG capsule Take 1 [...] benefits and alternatives discussed with: patient or motor vehicle representative. Possibility of blood products discussed. I [...] plan were discussed with patient/family or family motor vehicle representative. All questions were answered and there was agreement to proceed. History & Physical Review Leigh Ann Blank MD Anesthesiology [id number] [phone] 2:47 PM February 02, 2014 Diego Guthrie was seen and examined and the medical history was reviewed with him. The anesthetic plan was discussed, risks were explained and questions were answered. He agrees to proceed as discussed. I have reviewed this note and agree with the assessment and plan. Joseph Ivey M.D. Staff Anesthesiologist [phone] 02/02/2014 4:48 PM documented in this encounter [...] Date/Time Associated Diagnosis Comme nts [facility] [place] PA CENTRAL Routine 02/02/2014 6:19 PM Re [...] passed easily into [facility]. Hyunnarm Nazia DO [place] ANESTHESIA documented in this encounter Visit Diagnoses [...] Intra-op documented in this encounter Care Teams Certified Activities Director Relationship Specialty Start Date End Date Momo Forbes PCP - General Family Practice 01/02/14 [facility] [address] [place] [address] Ingrid Santana, RN Registered Nurse Transplant 02/10/12 10/01/15 documented as of this encounter
--- OUTSIDE RECORDS SUMMARY | 2022-04-07 11:13 | XMS_ITS | Encounter Summary ---
:1950 Author Organization [place] Address [address] [place] [address] Care Team Providers Name Role Phone Ingrid Santana RN Unavailable Momo Forbes Primary Care Provider Encounter Details Date Type Department Care Team Description 02/02/2014 Results Only LABORATORY RESULTS Migel Merchant MD [address] [place] [address] [address] [place] [address] (Wo rk) Social History Tobacco [...] I Single Antigen (02/02/2014 6:51 PM CDT) [facility] Method Time Signature SA1 Test SA HI [...] Phon e Number [facility] Immunology/Histocompatabil [place], [place] [address] [facility] [address], Room 3-580 HISTOTRAC documented in this encounter Visit Diagnoses Not on filedocumented in this encounter Care Teams Program Manager Relationship Specialty Start Date End Date Momo Forbes PCP - General Family Practice 01/02/14 [facility] [address] [place] [address] Ingrid Santana, RN Registered Nurse Transplant 02/10/12 10/01/15 documented as of this encounter
--- OUTSIDE RECORDS SUMMARY | 2022-04-07 11:13 | XMS_ITS | Encounter Summary ---
:1950 Author Organization [place] Address [facility] [place] [address] Care Team Providers Name Role Phone Ingrid Santana RN Unavailable Momo Forbes Primary Care Provider Reason for Visit Reason Comments Transplant Encounter Details Date Type Department Care Team Description 02/02/2014 Orders Only Transplant Surgery Abraham, End stage renal failure Clinic BOGDAN Mae on dialysis (H) 2nd Floor, Clinic 2A (Primary Dx) [address] [phone] Social History Tobacco Use Types Packs/Day Years [...] disease documented in this encounter Care Teams Ceramic Tile Installation Helper Relationship Specialty Start Date End Date Momo Forbes PCP - General Family Practice 01/02/14 [facility] [address] [place] [address] Ingrid Santana, RN Registered Nurse Transplant 02/10/12 10/01/15 documented as of this encounter
--- OUTSIDE RECORDS SUMMARY | 2022-04-07 11:14 | XMS_ITS | Encounter Summary ---
:1950 Author Organization [place] Address [address] [place] [address] Care Team Providers Name Role Phone Toña Jones MD Primary Care Provider Ingrid Santana RN Unavailable Encounter Details Date Type Department Care Team Description 07/30/2013 Results Only LABORATORY RESULTS Mingo Dangelo MD [address] [facility] [address] [place] [address] (Wo rk) Social History Tobacco [...] HLA Lukasz Class I Single Antigen (07/30/2013) [facility] Method Time Signature SA1 Test Single [...] / Volume Laterality 07/30/2013 07/31/2013 2:10 PM VAMP LINER Mingo Dangelo MD LAB - IMMUNOLOGY ORDERABLES Performing Organization Address City/State/ZIP Code Phon e Number [facility] Immunology/Histocompatabil [place], [place] [address] ity [facility] [address], Room 3-580 HISTOTRAC documented in this encounter Visit Diagnoses Not on filedocumented in this encounter Care Teams Ultrasound Tester Relationship Specialty Start Date End Date Toña Jones MD PCP - General Nephrology 11/25/11 01/01/14 Ingrid Santana RN Registered Nurse Transplant 02/10/12 10/01/15 documented as of this encounter
--- OUTSIDE RECORDS SUMMARY | 2022-04-07 11:14 | XMS_ITS | Encounter Summary ---
:1950 Author Organization [place] Address [facility] [place] [address] Care Team Providers Name Role Phone Toña [...] on filedocumented in this encounter Care Teams Will Call Order Clerk Relationship Specialty Start Date End Date Toña Jones MD PCP - General Nephrology 11/25/11 01/01/14 Momo Forbse PCP - General Family Practice 01/02/14 [facility] [address] [place] [id number] Ingrid Santana, RN Registered Nurse Transplant 02/10/12 10/01/15 documented as of this encounter
--- OUTSIDE RECORDS SUMMARY | 2022-04-07 11:14 | XMS_ITS | Encounter Summary ---
:1950 Author Organization [place] Address [facility] [place] [address] Care Team Providers Name Role Phone Toña Jones MD Primary Care Provider Ingrid Santana RN Unavailable Encounter Details Date Type Department Care Team Description 07/03/2012 Results Only LABORATORY RESULTS Barbara Bradley MD [address] [place], [place] [address] Social History Tobacco Use [...] in this encounter Results Virtual Crossmatch (07/03/2012) [facility] Method Time Signature Crossmatch Donor:GEOVANYKATHARINEABRAHAM Figueredo ? Crossmatch Date:07/24/2012 HISTOTRAC Result (Note) Serum Date ??Test ?Result ? Donor Specific Antibody ?Comments 07/03/2012 ??Class I/Virtxm1 ? DSA ?None ? 07/03/2012 ??Class II/Virtxm 1 ?DSA ?None ? Specimen (Source) Anatomical Collection Method Collection Time Re ceived Time Location / / Volume Laterality 07/03/2012 07/05/2012 1:57 PM CORRESPONDENT Barbara Bradley MD LAB - IMMUNOLOGY ORDERABLES Performing Organization Address City/State/ZIP Code Phon e Number [facility] Immunology/Histocompatabil [place], [place] [address] [facility] [address], Room [address]-580 HISTOTRAC documented in this encounter Visit Diagnoses Not on filedocumented in this encounter Care Teams Lightning Protection Installer Relationship Specialty Start Date End Date Toañ Jones MD PCP - General Nephrology 11/25/11 01/01/14 Ingrid Santana RN Registered Nurse Transplant 02/10/12 10/01/15 documented as of this encounter
--- OUTSIDE RECORDS SUMMARY | 2022-04-07 11:14 | XMS_ITS | Encounter Summary ---
:1950 Author Organization [place] Address [address] [place] [address] Care Team Providers Name Role Phone Ingrid Santana RN Unavailable Momo Forbes Primary Care Provider Encounter Details Date Type Department Care Team Description 01/21/2014 Results Only LABORATORY RESULTS Mingo [facility]angelo MD [address] [facility] [address] [place] [address] (Wo rk) Social History Tobacco [...] HLA Lukasz Class I Single Antigen (01/21/2014) [facility] Method Time Signature SA1 Test SA [...] Phon e Number [facility] Immunology/Histocompatabil [place], [place] [address] ity [facility] [address], Room [address]-580 HISTOTRAC documented in this encounter Visit Diagnoses Not on filedocumented in this encounter Care Teams Associate Professor Of Anthropology Relationship Specialty Start Date End Date Momo Forbes PCP - General Family Practice 01/02/14 [facility] [address] [place] [address] Ingrid Santana, RN Registered Nurse Transplant 02/10/12 10/01/15 documented as of this encounter
--- OUTSIDE RECORDS SUMMARY | 2022-04-07 11:14 | XMS_ITS | Encounter Summary ---
:1950 Author Organization [place] Address [address] [place] [address] Care Team Providers Name Role Phone Toña Jones MD Primary Care Provider Ingrid Santana RN Unavailable Encounter Details Date Type Department Care Team Description 07/30/2013 Results Only LABORATORY RESULTS Mingo Dangelo MD [address] [facility] [address] [place] [address] (Wo rk) Social History Tobacco [...] HLA Lukasz Class II Single Antigen (07/30/2013) [facility] Method Time Signature SA2 Test Single [...] / Volume Laterality 07/30/2013 07/31/2013 2:10 PM COMMISSARY AGENT Mingo Dangelo MD LAB - IMMUNOLOGY ORDERABLES Performing Organization Address City/State/ZIP Code Phon e Number [facility] Immunology/Histocompatabil [place] [address] ity [facility] [address] Building, Room [address]-580 HISTOTRAC documented in this encounter Visit Diagnoses Not on filedocumented in this encounter Care Teams Window Glass Installer Relationship Specialty Start Date End Date Toña Jones MD PCP - General Nephrology 11/25/11 01/01/14 Ingrid Santana RN Registered Nurse Transplant 02/10/12 10/01/15 documented as of this encounter
--- OUTSIDE RECORDS SUMMARY | 2022-04-07 11:14 | XMS_ITS | Encounter Summary ---
:1950 Author Organization [place] Address [facility] [place] [address] Care Team Providers Name Role Phone Toña [...] on filedocumented in this encounter Care Teams Distribution Superintendent Relationship Specialty Start Date End Date Toña Jones MD PCP - General Nephrology 11/25/11 01/01/14 Momo Forbes PCP - General Family Practice 01/02/14 [facility] [address] [place] [address] Ingrid Santana, RN Registered Nurse Transplant 02/10/12 10/01/15 documented as of this encounter
--- OUTSIDE RECORDS SUMMARY | 2022-04-07 11:14 | XMS_ITS | Encounter Summary ---
:1950 Author Organization [place] Address [address] [place] [address] Care Team Providers Name Role Phone Toña Jones MD Primary Care Provider Ingrid Santana RN Unavailable Encounter Details Date Type Department Care Team Description 01/17/2013 Results Only LABORATORY RESULTS Barbara Bradley MD [address] [place], [place] [address] Social History Tobacco Use [...] HLA Lukasz Class I Single Antigen (01/17/2013) [facility] gist Method Time Signature SA1 Test Single [...] Phon e Number [facility] Immunology/Histocompatabil [place], [place] [address] [facility] [address], Room 3-580 HISTOTRAC documented in this encounter Visit Diagnoses Not on filedocumented in this encounter Care Teams Model Making Supervisor Relationship Specialty Start Date End Date Toña Jones MD PCP - General Nephrology 11/25/11 01/01/14 Ingrid Santana RN Registered Nurse Transplant 02/10/12 10/01/15 documented as of this encounter
--- OUTSIDE RECORDS SUMMARY | 2022-04-07 11:14 | XMS_ITS | Encounter Summary ---
:1950 Author Organization [place] Address [address] [place] [address] Care Team Providers Name Role Phone Toña Jones MD Primary Care Provider Ingrid Santana RN Unavailable Encounter Details Date Type Department Care Team Description 10/11/2012 Results Only LABORATORY RESULTS Barbara Bradley MD [address] [place], [place] [address] Social History Tobacco Use [...] HLA Lukasz Class I Single Antigen (10/11/2012) [facility] gist Method Time Signature SA1 Test [...] / Volume Laterality 10/11/2012 10/12/2012 1:03 PM RECOVERY OPERATOR Barbara Bradley MD LAB - IMMUNOLOGY ORDERABLES Performing Organization Address City/State/ZIP Code Phon e Number [facility] Immunology/Histocompatabil [place], [place] [address] ity [facility] [address], Room 3-580 HISTOTRAC documented in this encounter Visit Diagnoses Not on filedocumented in this encounter Care Teams Quantitative Analyst Marketing Relationship Specialty Start Date End Date Toña Jones MD PCP - General Nephrology 11/25/11 01/01/14 Ingrid Santana RN Registered Nurse Transplant 02/10/12 10/01/15 documented as of this encounter
--- OUTSIDE RECORDS SUMMARY | 2022-04-07 11:14 | XMS_ITS | Encounter Summary ---
:1950 Author Organization [place] Address [address] [facility] [place] [address] Care Team Providers Name Role Phone Toña [...] Ump Sot Surgery 2nd Floor, Clinic [address] [place] [phone] Referral ID Status Reason Start Date Expiration Date Visits Requ ested Visits Authorized [id number] Closed 12/10/2013 06/08/2014 1 1 Consultation - Closed Specialty Diagnoses / Procedures Referred By Contact Refer red To Contact Diagnoses Organ transplant candidate ESRD (end stage renal disease) on dialysis (H) DM (diabetes mellitus), type 2 (H) [facility] Sot Surgery [facility] Floor, [facility] [address] [phone] Referral ID Status Reason Start Date Expiration Date Visits Requ ested Visits Authorized [id number] Closed 12/10/2013 06/08/2014 1 1 Encounter Details Date Type Department Care Team Description 12/07/2013 Orders Only Transplant Surgery Nazia March LPN Organ transplant candidate (Primary Dx); Clinic Screening for other and unsp ecified cardiovascular conditions; 2nd Floor, Clinic 2A ESRD (end stage renal diseas e) on dialysis (H); Tommy Wilburn DM (madeleine betes mellitus), type 2 (H) [address] [phone] Social History Tobacco Use Types [...] uncontrolled documented in this encounter Care Teams Pain Management Nurse Practitioner Relationship Specialty Start Date End Date Toña Jones MD PCP - General Nephrology 11/25/11 01/01/14 Siers, Ingrid A, RN Registered Nurse Transplant 02/10/12 10/01/15 documented as of this encounter
--- OUTSIDE RECORDS SUMMARY | 2022-04-07 11:14 | XMS_ITS | Encounter Summary ---
:1950 Author Organization [place] Address [address] [place] [address] Care Team Providers Name Role Phone Toña Jones MD Primary Care Provider Ingrid Santana RN Unavailable Encounter Details Date Type Department Care Team Description 11/05/2013 Results Only LABORATORY RESULTS Barbara Bradley MD [address] [place], [place] [address] Social History Tobacco Use [...] II Single Antigen (11/05/2013 7:20 AM CDT) [facility] Method Time Signature SA2 Test SA [...] Phon e Number [facility] Immunology/Histocompatabil [place], [place] [address] ity [facility] [address] [facility] [address] Building, Room 3-580 HISTOTRAC documented in this encounter Visit Diagnoses Not on filedocumented in this encounter Care Teams Corking Machine Operator Relationship Specialty Start Date End Date Toña Jones MD PCP - General Nephrology 11/25/11 01/01/14 Ingrid Santana RN Registered Nurse Transplant 02/10/12 10/01/15 documented as of this encounter
--- OUTSIDE RECORDS SUMMARY | 2022-04-07 11:14 | XMS_ITS | Encounter Summary ---
:1950 Author Organization [place] Address [address] [place] [address] Care Team Providers Name Role Phone Toña Jones MD Primary Care Provider Ingrid Santana RN Unavailable Encounter Details Date Type Department Care Team Description 07/03/2012 Results Only LABORATORY RESULTS Barbara Bradley MD [address] [place], [place] [address] Social History Tobacco Use [...] HLA Lukasz Class II Single Antigen (07/03/2012) [facility] gist Method Time Signature SA2 Test Single [...] / Volume Laterality 07/03/2012 07/05/2012 1:57 PM FAMILY COUNSELOR Barbara Bradley MD LAB - IMMUNOLOGY ORDERABLES Performing Organization Address City/State/ZIP Code Phon e Number [facility] Immunology/Histocompatabil [place], [place] [address] ity [facility] [address], Room 3-580 HISTOTRAC documented in this encounter Visit Diagnoses Not on filedocumented in this encounter Care Teams Coverstitch Elastic Attacher Relationship Specialty Start Date End Date Toña Jones MD PCP - General Nephrology 11/25/11 01/01/14 Ingrid Santana RN Registered Nurse Transplant 02/10/12 10/01/15 documented as of this encounter
--- OUTSIDE RECORDS SUMMARY | 2022-04-07 11:14 | XMS_ITS | Encounter Summary ---
:1950 Author Organization [place] Address [facility] [place] [address] Care Team Providers Name Role Phone Ingrid Santana RN Unavailable Momo Forbes Primary Care Provider Reason for Visit Reason Onset Date Comments Transplant 02/02/2014 Kidney Offer Encounter Details Date Type Department Care Team Description 02/02/2014 Telephone Transplant Surgery Carmel[facility] Rosario Tran splant ([facility] RN Offer) 2nd Floor, Clinic [address] [phone] Social History Tobacco Use Types Packs/Day Years [...] on filedocumented in this encounter Care Teams Operations Trainer Relationship Specialty Start Date End Date Momo Forbes PCP - General Family Practice 01/02/14 [facility] [address] [place] [address] Ingrid Santana RN Registered Nurse Transplant 02/10/12 10/01/15 documented as of this encounter
--- OUTSIDE RECORDS SUMMARY | 2022-04-07 11:14 | XMS_ITS | Encounter Summary ---
:1950 Author Organization [facility] Address [address] [place] [address] Care Team Providers Name Role Phone Ingrid Santana RN Unavailable Momo Forbes Primary Care Provider Reason for Visit Auth/Cert - Closed Specialty Diagnoses / Procedures Referred By Contact Refer red To Contact Med Surg Diagnoses end stage renal disease dialysis End stage renal failure on dialysis Renal Failure Uu U7a Procedures TRANSPLANT KIDNEY RECIPIENT DONOR [address] [place] [address] Phone: Referral ID Status Reason Start Date Expiration Date Visits Requ ested Visits Authorized [id number] Closed 02/04/2014 08/03/2014 1 1 Encounter Details Date Type Department Care Team Description 02/02/2014 Surgery [facility] Migel Merchant , Kidney Transplant , PeriOp Services ureteral stent [address] [place] [address] [address] [address] [place], [place] [address] (Wo rk) Surgery Details Date/Time Status Location [...] Physician Discharge Summary Patient ID: Diego Guthrie [id number] 63 year old 1950 Admit date: 02/02/2014 [...] Take 1 tablet by mouth daily. B wuvimdf-V-nbnws acid (NEPHROCAPS) 1 MG capsule Take 1 [...] located on the second floor of the [facility] next to the Transplant [...] of these appointments you will meetwith a ferry terminal supervisor and meet your facility coordinator. Your nurse will also be in communication with your surgeon and ferry terminal supervisor as needed. The direct number to the [facility] is [phone]. In the [facility] [...] the hospital. This will be located in [facility] transplant surgery clinic on the second floor.Your transplant surgeon is: Dr. Merchant. You have a ureteral stent in place which needs to be removed in 4-6 weeks. If a operating room scheduler does not contact you for this, please contact your facility coordinator. If you have modesta in place, they will be removed in 3 weeks after operation. Notify your coordinator if you have pain over your kidney, fever greater than 101.5F, or decreased urine output. Notify your coordinator immediately if you are ever unable to take your immunosuppressive medications for any reason. Portable Power Tool Repairer [phone] Diet recommendations post-transplant: Heart healthy dietary habits salvage determiner (low saturated/trans fat, low sodium). High protein [...] >2. He can be seen by any tongue trimmer in the outpatient setting for coordination. Continue metoprolol 25 po bid until he is r e-evaluated. We did attempt inpatient REFUGIO guided cardioversion, but the patient developed significant bleeding while on heparin. José Miguel Alvarez M.D. Marine Structural Designer Joseph Quintana MD - 02/08/2014 12:35 PM [...] Dr. Quintana. Sina Robison MD Nephrology Fellow [phone] Attestation: This patient has been seen and [...] Ramires RN - 02/07/2014 2:25 PM CDT Employment Consultant D: Diego Guthrie 63 year old male POD #5 s/p DDKT for ESRD 2/[address] Diaz note today. Per Dr Diaz, pt will most likely be ready for d/c to home tomorrow and will return to [facility] for 5 days at 0700. Pt [...] him. Pt does not know where the [facility] or transplant clinic is, I told him and he replied I will find it. Pt does not care which [facility] agency will follow him--There are only 2 to choose from, so I [facility] [phone]/ --I called and left a message with Estrella Fletcher and I fax'd his records tothem--pt will need start of care approx Thursday 02/15. Pt is new on warfarin and I called his PCP's office and they have INR nurses Tuesday-Tuesday their fax # is [phone] (when [facility] visits are completed --pt will call main clinic # to schedule INR draws). 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 I verified his address and phone #(is his cell) on the facesheet. Pt has not met his OP lead caregiver: Leandro Kahn, yet--I sent Leandro an in [employer] message today-with plan. A: possible d/c to home Tuesday P: see above-will follow and will call [facility] to confirm they can accept him. [...] Dr. Quintana. Sina Robison MD Nephrology Fellow [phone] Attestation: This patient has been seen and [...] assistance Medical Decision Making: Medium Subsequent visit 26340 (moderate level decision making) PATO/Fellow/Resident Provider: Adeline [...] Rodriguez MD - 02/06/2014 4:25 PM CDT [facility] Cardiology Progress Note I have seen [...] Dr. Quintana. Sina Robison MD Nephrology Fellow [phone] Attestation: This patient has been seen and [...] focal deficit No pronator drift. Tremorabsent. Line: [facility] Data: CMP Recent Labs Lab 02/06/14 0557 [...] Dr. Quintana. Sina Robison MD Nephrology Fellow [phone] Attestation: This patient has been seen and [...] Kahn RN - 02/05/2014 4:47 PM CDT ORAL SURGERY ASSISTANT NOTE I met with the patient and his yesterday at [facility] PCU-6B (telemetry unit) to discuss transition from inpatient to outpatient care following kidney translantation. 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 He has slow graft function; however, his [...] the plan for daily visits to the [facility] for 5 days after discharge followed [...] meet with the patient again in the [facility] following discharge from [facility]. Joseph Rodriguez MD - 02/05/2014 11:16 AM CDT [facility] Cardiology Progress Note I have seen [...] plan for REFUGIO cardioversion tomorrow, NPO at [place] (orders placed) -- continue heparin and initiate [...] kidney on 02/02/2014. Pt lives alone in [place] [facility] though reports that his girlfriend in in the process of moving in with him. Pt girlfriend, Tete, will be present when pt returns home but she works back winder. Pt was on dialysis for 2 1/2 years prior to transplant. Pt works independently but reports that he currently has no income coming in. Pt has primary insurancethrough Medicare and Secondary insurance through [employer]. Pt has no co-pays for his immunosuppressants and a high out of pocket cost for Valcyte, SW to look into grants for pt for Valcyte. I: Met with pt to introduce this scientific writer and explain sw role and services available while inpatient in the hospital. Asked if pt had any questions or concerns and completed an assessment of psychosocialneeds post transplant. Provided education about expectations and requirements post discharge like fol low up in the [facility]. Pt is unsure yet if he [...] needs arise prior to discharge. CECY Kearns, BRIDGE PAINTER Indu Calixto MD - 02/05/2014 1:50 AM [...] Adds Type of Visit Initial PT Evaluation Flight Operations Manager Flight Operations Manager Present no Language Australian Living Environment (R) Lives With alone Living [...] up when pt is available. CECY Kearns, BRIDGE PAINTER [phone] phone [phone] pager Joseph Quintana MD - 02/04/2014 11:51 [...] Dr. Quintana. Sina Robison MD Nephrology Fellow [phone] Attestation: This patient has been seen and [...] for this basename: PTHI, in the last 38995 hours IRON STUDIES No results found for this basename: IRON, FEB, IRONSAT, THEE, in the last 15220 hours Imaging: All imaging studies reviewed by [...] or equal to 12.0 mlU/mL. Adeline Diaz [phone] Attestation: The patient has been seen and [...] donor kidney transplant, with stent on 02/02/14. CRATE TIER donor. Graft function:uncertain, Cr slightly up. Slow [...] . Medical Decision Making: Medium Subsequent visit 50008 (moderate level decision making) PATO/Fellow/Resident Provider: Caitlin [...] note and orders. Migel Merchant MD, PhD production stage manager Abdominal Organ Transplantation Carmelita Rosario, BOGDAN - 02/03/2014 9:38 AM CDT Patient removed from the UNOS waitlist after donor kidney transplant. UNOS ID is [id number]. Rafaela Cardona - 02/03/2014 9:17 AM CDT [...] followed general diet. Patient reports good appetite/intake HARD TILE SETTER, no nutrition issues/concnerns. CURRENT NUTRITION ORDERS - [...] DDKT ASSESSED NUTRITION NEEDS: Estimated Energy Needs: 3955-6116+ kcals (25-30+ Kcal/Kg) Justification: maintenance post-transplant Estimated [...] (6- 8 weeks). Rec follow heart-healthy diet salvage determiner. Implementation Nutrition education: Provided instruction on post-transplant diet with discussion regarding protein sources and high protein needs in acute post-tx phase. Reviewed recommendations to follow low fat/lowsodium diet salvage determiner and discussed heart healthy diet tips. Discussed [...] adjustment. Rafaela Cardona RD, LD Weekend Coverage [phone] Jose Aguirre MD - 02/03/2014 4:57 AM [...] Doing well postoperatively. Pain: Controlled by Dilaudid PUTTY MIXER Diet: NPO tonight Volume Status: Borderline low UOP, continue MIVF, 0.9 % NS 500 cc bolus given for low UOP, CVP not accurate, systolic in 100-110 Recheck hemoglobin and potassium normal. Rest of the plan per primary team. Will continue to follow. Jose Aguirre MD PGY-1.................02/03/2014 Surgery Cross Cover Pager:[phone] documented in this encounter H&P Notes Caitlin [...] 1 tablet by mouth daily. ??? B kvnjkrf-S-wtepb acid (NEPHROCAPS) 1 MG capsule Take 1 [...] Transplant Fellow, Caitlin Morales MD Surgery Cross-Cover Pager:[phone] Addendum: Donor 59 yo F CRATE TIER, CVA, h/o HTN, CMV+, EBV+. Kidney bx [...] reflected in the note and orders. Migel Mrechant MD, PhD production stage manager Abdominal Organ Transplantation documented in this encounter Consult Notes Joseph Rodriguez MD - 02/04/2014 11:03 AM CDTAssociated Order(s): CARDIOLOGY IP CONSULT [facility] CARDIOLOGY CONSULT SERVICE INITIAL CONSULT NOTE [...] 1 tablet by mouth daily. ??? 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 José Miguel Alvarez MD Marine Structural Designer Pager: [phone] February 04, 2014 Kaitlynn Leon MD - 02/03/2014 9:30 AM CDT Nephrology Initial Consult February 03, 2014 Diego Guthrie Date of : 1950 Date of Admission:02/02/2014 Primary care provider: Momo Forbes Requesting physician: Migel Merchant MD ASSESSMENT AND RECOMMENDATIONS: 1. DDKT - CRATE TIER -59 yo women; slow graft function-no immediate need for dialysis , but may require tomorrow if UO does not warehouse order picker. We will monitor Induction with Thymo/Cellcept [...] h/o type 2 Dm, who received DDKT (CRATE TIER) on 02/02/2014 donor kidney had severe atherosclerotic [...] ??? Cataract iol, rt/lt both eyes MEDICATIONS: HARD TILE SETTER Meds Prior to Admission medications Medication Sig Last Dose Taking? Auth Provider Calcium Carbonate-Vitamin D (CALCIUM + D PO) Take by mouth daily. Reported, Patient lisinopril (PRINIVIL,ZESTRIL) 40 MG tablet Take 40 mg by mouth 2 times daily. Reported, Patient METOPROLOL SUCCINATE PO Take by mouth daily. Reported, Patient aspirin 81 MG tablet Take 1 tablet by mouth daily. Reported, Patient B pirdmuh-E-vpyvr acid (NEPHROCAPS) 1 MG capsule Take 1 [...] Intravenous Central line Once ??? HYDROmorphone Intravenous PUTTY MIXER Infusion Meds ??? 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 Alvin Diego Cardiovascular Disease Fellow [phone] Patient seen and examined by me with [...] Cullen MD, PhD Jarad Cullen MD, PhD [phone] documented in this encounter Nursing Notes Gretta Mary RN - 02/02/2014 11:[address] Owens with Transplant Surgery notified of stat lab results. Magnesium replaced. Dr. Blank with Anesthesia reviewed chest x-ray. CVC not deep enough to give accurate CVP readings, however all lumens aspirate blood well. Patient is ok to transfer to unit 6B per [facility]. documented in this encounter Miscellaneous Notes Plan of Care - Amanda Hernandez RN - 02/08/2014 3:44 PM CDT Problem: IP GENERAL POC-ADULT,OB,BEHAVIORAL FVCPM Goal: Individualization/Patient-Specific Goal (Adult,OB,Behavioral The patient and/or their account retention representative will achieve their patient-specific goals related [...] Card updated. Report called to Saima in [facility]. Left facility accompanied by s.o at 1600. Plan of Care - Amanda Hernandez RN - 02/08/2014 2:13 PM CDT Problem: IP GENERAL POC-ADULT,OB,BEHAVIORAL FVCPM Goal: Individualization/Patient-Specific Goal (Adult,OB,Behavioral The patient and/or their account retention representative will achieve their patient-specific goals related [...] Individualization/Patient-Specific Goal (Adult,OB,Behavioral The patient and/or their account retention representative will achieve their patient-specific goals related [...] Individualization/Patient-Specific Goal (Adult,OB,Behavioral The patient and/or their account retention representative will achieve their patient-specific goals related [...] Diet recommendations post-transplant: Heart healthy dietary habits salvage determiner (low saturated/trans fat, low sodium). High protein diet x 8 weeks. Practice food safety precautions - no fish/seafood x 3 weeks. Inez Luevano MS, RD, LD Pager [phone] Pharmacy-Immunosuppression Monitoring - Em Vasquez [facility] - 02/07/2014 9:06 AM CDT Tacrolimus Monitoring [...] will continue to follow. Em Vasquez, Pharm.D., [facility] Pager [phone] Plan of Care - Annmarie Colby RN - 02/07/2014 5:11 AM CDT Problem: IP GENERAL POC-ADULT,OB,BEHAVIORAL FVCPM Goal: Individualization/Patient-Specific Goal (Adult,OB,Behavioral The patient and/or their account retention representative will achieve their patient-specific goals related [...] Individualization/Patient-Specific Goal (Adult,OB,Behavioral The patient and/or their account retention representative will achieve their patient-specific goals related [...] increased fluid intake, urine color is becoming bed bug exterminator( tea color/bloody- >dark sy/tea color). Incisional pain [...] Physical Therapy Goals The patient and/or their account retention representative will achieve their patient-specific goals related [...] Physical Therapy Goals The patient and/or their account retention representative will achieve their patient-specific goals related [...] Individualization/Patient-Specific Goal (Adult,OB,Behavioral The patient and/or their account retention representative will achieve their patient-specific goals related [...] Individualization/Patient-Specific Goal (Adult,OB,Behavioral The patient and/or their account retention representative will achieve their patient-specific goals related [...] Physical Therapy Goals The patient and/or their account retention representative will achieve their patient-specific goals related [...] at this time. Pharmacy - Cayetano Olivera, [facility] - 02/05/2014 12:26 PM CDT Visited 02/05/2014 in hospital room prior to discharge to review medications, review discharge process and review specialty pharmacy program. Med Review: Reviewed patient's medications and medical conditions. Patient would like to use [facility] to manage all medications. Medcard: [...] Specialty Pharmacy review: Discussed the benefits of [facility] and Diego has enrolled. Also gave him supplies (blood pressure cuff, thermometer, and pill box) Other concerns: No other concerns at this time. No further questions for this pharmacist. Inez Cox, Student Pharmacist Decision Support Manager [facility] [address] [place] [address] Cayetano Olivera, Pharmacist [facility] [phone] Pharmacy-Anticoagulation Service - Teresa Wright [facility] - 02/05/2014 11:29 AM CDT Clinical Pharmacy- [...] Individualization/Patient-Specific Goal (Adult,OB,Behavioral The patient and/or their account retention representative will achieve their patient-specific goals related [...] melonie hard time making full sentences. When scientific writer came on shift at 8pm patient [...] Individualization/Patient-Specific Goal (Adult,OB,Behavioral The patient and/or their account retention representative will achieve their patient-specific goals related [...] Physical Therapy Goals The patient and/or their account retention representative will achieve their patient-specific goals related [...] by friend. Pt transferred to chair, VSS, laboratory monitor on, oriented to room. Pharmacy-Admission Medication History - Teresa Wright, [facility] - 02/04/2014 11:54 AM CDT Admission medication history interview status for the 02/02/2014 admission is complete. See [facility] admission navigator for allergy information, prior to admission medications and immunization status. Medication history interview sources (including written lists, pill bottles, clinic record):Patient Medication history source reliability:Good Primary pharmacy:[facility] phone number: [phone] Changes made to HARD TILE SETTER medication list (reason) Added: Vitamin D 1,000 [...] at Unknown time Yes Reported, Patient B agantvg-A-cleww acid (NEPHROCAPS) 1 MG capsule Take 1 [...] Individualization/Patient-Specific Goal (Adult,OB,Behavioral The patient and/or their account retention representative will achieve their patient-specific goals related [...] 45 minutes and remains in A-fib via laboratory monitor. Repeat EKG around 1000 showed continued [...] Physical Therapy Goals The patient and/or their account retention representative will achieve their patient-specific goals related to the plan of care. The patient-specific goals include: PT 7A: HOLD for AM per RN - pt with a-fib this morning. Plan of Care - Alisson Diane RN - 02/04/2014 6:45 AM CDT Problem: IP GENERAL POC-ADULT,OB,BEHAVIORAL FVCPM Goal: Individualization/Patient-Specific Goal (Adult,OB,Behavioral The patient and/or their account retention representative will achieve their patient-specific goals related [...] Individualization/Patient-Specific Goal (Adult,OB,Behavioral The patient and/or their account retention representative will achieve their patient-specific goals related [...] to yellow. Pharmacy-Transplant Note - Davina Schuster [facility] - 02/03/2014 4:28 PM CDT Adult Kidney [...] Individualization/Patient-Specific Goal (Adult,OB,Behavioral The patient and/or their account retention representative will achieve their patient-specific goals related to the plan of care. The patient-specific goals include: 1. Pt will remain hemodynamically stable 2. Pt will have adequate urine output 3. Pt will be free of falls. RD Patient will verbalize understanding of 3 important aspects of post-transplant diet guidelines. PO intake >50% meals TID once diet adv. Report taken from [facility] on 6B; patient transferred to from 6B via wheelchair around 1500. Patientsettled into room, oriented to floor/room and call light. VS taken. Orders released. Continue ordersas written and notify MD with any concerns. Plan of Care - Sofie Christianson RN - 02/03/2014 2:59 PM CDT Problem: IP GENERAL POC-ADULT,OB,BEHAVIORAL FVCPM Goal: Plan of Care Review (Adult,OB,Behavioral) The patient and/or their account retention representative will communicate an understanding of their [...] algorithm 2, 1 unit now. Pt still [id number] NC to maintain sats above 90 % [...] Individualization/Patient-Specific Goal (Adult,OB,Behavioral The patient and/or their account retention representative will achieve their patient-specific goals related [...] Intermittent sharp R lower abd pain. Dilaudid PUTTY MIXER encouraged, increased to 0.2/10/1.2. R lower abd [...] 0200 made 20cc/hr, at 0300 made 30cc/hr. Blackwood/red tinged urine. MIVF @ 125/hr. VSS. HR 70s, BPs 100s-120s/60s. No new orders at this time. Will continue to monitor. Plan of Care - Tasia Andrade, RN - 02/03/2014 12:00 AM CDT Pt arrived to from PACU, s/p DDKT. A&O x3-4. VSS. Blackwood/red urine output. Small amt drainage on abd [...] to Type 2 Diabetes. [facility] CRATE TIER (expanded criteria donor) kidney transplant. After discussing [...] The UNOS number of the donor is [id number]. The crossmatch was done prospectively; and the [...] reconstruction. FACULTY SURGEON: Migel Merchant M.D., Ph.D. FELLOW/DOG LICENSER SURGEON: Caitlin Owens MD fellow ANESTHESIA: None VERIFICATION: Prior to incision, I verified the donor ABO and recipient ABO. After the donor organ arrived to the operating room and prior to anastamosis, I visually verified that the donor identification, blood type, and other vital data were compatible with the recipient. FINDINGS: Donor type: CRATE TIER (expanded criteria donor) Organ: kidney Graft Injury: [...] Individualization/Patient-Specific Goal (Adult,OB,Behavioral The patient and/or their account retention representative will achieve their patient-specific goals related [...] Individualization/Patient-Specific Goal (Adult,OB,Behavioral The patient and/or their account retention representative will achieve their patient-specific goals related [...] LARES - ROBERT POCT Performing Organization Address City/State/[facility] Code Phon e Number FV POINT [...] LARES - ROBERT POCT Performing Organization Address City/[facility]/ZIP Code Phon e Number FV POINT OF CARE TEST, GLUCOSE POINT OF CARE TEST, GLUCOSE Tacrolimus level (02/08/2014 6:42 AM CDT) Patholo gist Method Time Signature Tacrolimus Not Provided [facility] Last Dose [facility] Tacrolimus 10.0 5.0 - [facility] Level 15.0 ug/L [facility] Comment: Tacrolimus Reference Range Kidney [...] LAB - BLOOD ORDERABLES Performing Organization Address City/[facility]/ZIP Code Phon e Number [facility] [address] LABS (ABNORMAL) INR (02/08/2014 6:42 AM CDT) P athologist Signature INR 1.28 (H) 0.86 - 1.14 [facility] Specimen Anatomical Collection Method Collection Time Receive d Time (Source) Location / / Volume Laterality Blood specimen 02/08/2014 6:42 AM 014 6:43 (specimen) CDT AM CDT Omaira Chavez PA-C LAB - BLOOD ORDERABLES Performing Organization Address City/[facility]/ZIP Code Phon e Number [facility] [address] LABS (ABNORMAL) Basic metabolic panel (02/08/2014 6:42 AM CDT) Patholo gist Method Time Signature Sodium 144 133 - 144 [facility] mmol/L [facility] Potassium 3.9 3.4 - 5.3 [facility] mmol/L [facility] Chloride 110 (H) 94 - 109 [facility] mmol/L [facility] Carbon Dioxide 25 20 - 32 [facility] mmol/L [facility] Anion Gap 8 6 - 17 [facility] mmol/L [facility] Glucose 144 (H) 60 - 99 [facility] mg/dL [facility] Urea Nitrogen 66 (H) 7 - 30 [facility] mg/dL [facility] Creatinine 2.38 (H) 0.66 - [facility] 1.25 mg/dL [facility] [place] [facility] GFR Estimate 28 (L) >60 [facility] mL/min/1.7 [place] [facility] GFR Estimate If 34 (L) >60 [facility] Black mL/min/1.7 [place] [facility] Calcium 9.4 8.5 - 10.4 [facility] mg/dL [facility] Specimen Anatomical Collection Method Collection Time Receive d Time (Source) Location / / Volume Laterality Blood specimen 02/08/2014 6:42 AM 014 6:43 (specimen) CDT AM CDT Omaira Chavez PA-C LAB - BLOOD ORDERABLES Performing Organization Address City/State/ZIP Code Phon e Number [facility] [address] LABS Phosphorus (02/08/2014 6:42 AM CDT) P athologist Signature Phosphorus 2.5 2.5 - 4.5 [facility] mg/dL [place] [facility] Specimen Anatomical Collection Method Collection Time Receive d Time (Source) Location / / Volume Laterality Blood specimen 02/08/2014 6:42 AM 014 6:43 (specimen) CDT AM CDT Omaira Chavez PA-C LAB - BLOOD ORDERABLES Performing Organization Address City/State/ZIP Code Phon e Number [facility] [address] LABS Magnesium (02/08/2014 6:42 AM CDT) P athologist Signature Magnesium 2.2 1.6 - 2.3 [facility] mg/dL [place] [facility] Specimen Anatomical Collection Method Collection Time Receive d Time (Source) Location / / Volume Laterality Blood specimen 02/08/2014 6:42 AM 014 6:43 (specimen) CDT AM CDT Omaira Chavez PA-C LAB - BLOOD ORDERABLES Performing Organization Address City/[facility]/ZIP Code Phon e Number [facility] [address] LABS (ABNORMAL) CBC with platelets differential (02/08/2014 6:42 AM CDT) Patholo gist Method Time Signature WBC 4.8 4.0 - [facility] 11.0 [place] 10e9/L [place] [facility] RBC Count 2.56 (L) 4.4 - 5.9 [facility] 10e12/L [facility] Hemoglobin 7.8 (L) 13.3 - [facility] 17.7 g/dL [facility] Hematocrit 23.5 (L) 40.0 - [facility] 53.0 % [facility] MCV 92 78 - 100 [facility] fl [facility] MCH 30.5 26.5 - [facility] 33.0 pg [facility] MCHC 33.2 31.5 - [facility] 36.5 g/dL [facility] RDW 14.5 10.0 - [facility] 15.0 % [facility] Platelet Count 70 (L) 150 - 450 [facility] 10e9/L [facility] Diff Method Automated [facility] Method [facility] % Neutrophils 86.3 % [facility] % Lymphocytes 3.1 % [facility] % Monocytes 9.4 % [facility] % Eosinophils 1.0 % [facility] % Basophils 0.0 % [facility] % Immature 0.2 % [facility] Granulocytes [facility] Absolute 4.1 1.6 - 8.3 [facility] Neutrophil 10e9/L [facility] Absolute 0.2 (L) 0.8 - 5.3 [facility] Lymphocytes 10e9/L [facility] Absolute 0.5 0.0 - 1.3 [facility] Monocytes 10e9/L [facility] Absolute 0.1 0.0 - 0.7 [facility] Eosinophils 10e9/L [facility] Absolute 0.0 0.0 - 0.2 [facility] Basophils 10e9/L [facility] Abs Immature 0.0 0 - 0.4 [facility] Granulocytes 10e9/L [facility] Specimen Anatomical Collection Method Collection Time Receive d Time (Source) Location / / Volume Laterality Blood specimen 02/08/2014 6:42 AM 014 6:43 (specimen) CDT AM CDT Omaira Chavez PA-C LAB - BLOOD ORDERABLES Performing Organization Address City/State/ZIP Code Phon e Number [facility] [address] [place], [place] [phone] [place] [address] LABS (ABNORMAL) Glucose by meter (02/07/2014 10:18 PM CDT) P athologist Signature Glucose 233 (H) 60 - 99 POINT OF CARE mg/dL TEST, GLUCOSE Specimen Anatomical Collection Method Collection Time Receive d Time (Source) Location / / Volume Laterality 02/07/2014 10:18 02/07/2014 PM CDT 10:20 PM CDT Migel Merchant MD LAB - BEAKER POCT Performing Organization Address [facility] Phon e Number FV POINT OF CARE [...] LAB - BEAJ POCT Performing Organization Address [facility] Phon e Number FV POINT OF CARE [...] LAB - BEAKER POCT Performing Organization Address [facility] Phon e Number FV POINT OF CARE [...] LAB - BEAJ POCT Performing Organization Address [facility] Phon e Number FV POINT OF CARE [...] LARES - ROBERT POCT Performing Organization Address City/[facility]/ZIP Code Phon e Number FV POINT OF CARE TEST, GLUCOSE POINT OF CARE TEST, GLUCOSE (ABNORMAL) INR (02/07/2014 4:23 AM CDT) athologist Signature INR 1.25 (H) 0.86 - 1.14 [facility] LAB[facility] Specimen Anatomical Collection Method Collection Time Receive d Time (Source) Location / / Volume Laterality Blood specimen 02/07/2014 4:23 AM 014 4:24 (specimen) CDT AM CDT Omaira Chavez PA-C LAB - BLOOD ORDERABLES Performing Organization Address City/[facility]/ZIP Code Phon e Number [phone] [place] [address] LABS (ABNORMAL) Basic metabolic panel (02/07/2014 4:23 AM CDT) [facility] Method Time Signature Sodium 143 133 - 144 [facility] mmol/L [facility] Potassium 4.1 3.4 - 5.3 [facility] mmol/L [facility] Chloride 109 94 - 109 [facility] mmol/L [facility] Carbon Dioxide 24 20 - 32 [facility] mmol/L [facility] Anion Gap 10 6 - 17 [facility] mmol/L [facility] Glucose 185 (H) 60 - 99 [facility] mg/dL [facility] Urea Nitrogen 77 (H) 7 - 30 [facility] mg/dL [facility] Creatinine 3.02 (H) 0.66 - [facility] 1.25 mg/dL [facility] [place] [facility] GFR Estimate 21 (L) >60 [facility] mL/min/1.7 [place] m2 [facility] GFR Estimate If 26 (L) >60 [facility] Black mL/min/1.7 [place] m2 [facility] Calcium 9.3 8.5 - 10.4 [facility] mg/dL [facility] Specimen Anatomical Collection Method Collection Time Receive d Time (Source) Location / / Volume Laterality Blood specimen 02/07/2014 4:23 AM 014 4:24 (specimen) CDT AM CDT Omaira Chavez PA-C LAB - BLOOD ORDERABLES Performing Organization Address City/State/ZIP Code Phon e Number [facility] [address] LABS Phosphorus (02/07/2014 4:23 AM CDT) P athologist Signature Phosphorus 3.5 2.5 - 4.5 [facility] mg/dL [place] [facility] Specimen Anatomical Collection Method Collection Time Receive d Time (Source) Location / / Volume Laterality Blood specimen 02/07/2014 4:23 AM 014 4:24 (specimen) CDT AM CDT Omaira Chavez PA-C LAB - BLOOD ORDERABLES Performing Organization Address City/State/ZIP Code Phon e Number [facility] [address] LABS Magnesium (02/07/2014 4:23 AM CDT) P athologist Signature Magnesium 2.1 1.6 - 2.3 [facility] mg/dL [place] [facility] Specimen Anatomical Collection Method Collection Time Receive d Time (Source) Location / / Volume Laterality Blood specimen 02/07/2014 4:23 AM 014 4:24 (specimen) CDT AM CDT Omaira Chavez PA-C LAB - BLOOD ORDERABLES Performing Organization Address City/State/ZIP Code Phon e Number [facility] [address] [place], [place] [phone] [place] [address] LABS (ABNORMAL) CBC with platelets differential (02/07/2014 4:23 AM CDT) [facility] gist Method Time Signature WBC 2.7 (L) 4.0 - [facility] 11.0 [place] 10e9/L [place] [facility] RBC Count 2.80 (L) 4.4 - 5.9 [facility] 10e12/L [facility] Hemoglobin 8.5 (L) 13.3 - [facility] 17.7 g/dL [facility] Hematocrit 25.8 (L) 40.0 - [facility] 53.0 % [facility] MCV 92 78 - 100 [facility] fl [facility] MCH 30.4 26.5 - [facility] 33.0 pg [facility] MCHC 32.9 31.5 - [facility] 36.5 g/dL [facility] RDW 14.5 10.0 - [facility] 15.0 % [facility] Platelet Count 77 (L) 150 - 450 [facility] 10e9/L [facility] Diff Method Automated [facility] Method [facility] % Neutrophils 87.5 % [facility] % Lymphocytes 3.8 % [facility] % Monocytes 8.7 % [facility] % Eosinophils 0.0 % [facility] % Basophils 0.0 % [facility] % Immature 0.0 % [facility] Granulocytes [facility] Absolute 2.3 1.6 - 8.3 [facility] Neutrophil 10e9/L [facility] Absolute 0.1 (L) 0.8 - 5.3 [facility] Lymphocytes 10e9/L [facility] Absolute 0.2 0.0 - 1.3 [facility] Monocytes 10e9/L [facility] Absolute 0.0 0.0 - 0.7 [facility] Eosinophils 10e9/L [facility] Absolute 0.0 0.0 - 0.2 [facility] Basophils 10e9/L [facility] Abs Immature 0.0 0 - 0.4 [facility] Granulocytes 10e9/L [facility] Specimen Anatomical Collection Method Collection Time Receive d Time (Source) Location / / Volume Laterality Blood specimen 02/07/2014 4:23 AM 014 4:24 (specimen) CDT AM CDT Omaira Chavez PA-C LAB - BLOOD ORDERABLES Performing Organization Address City/State/ZIP Code Phon e Number [facility] [address] [place], [place] [phone] [place] [address] LABS (ABNORMAL) Hemoglobin A1c (02/07/2014 4:23 AM CDT) Analysis Performed At Patho logist Time Signature Hemoglobin A1C 6.1 (H) 4.3 - 6.0 [facility] LAB[facility] Specimen Anatomical Collection Method Collection Time Receive d Time (Source) Location / / Volume Laterality Blood specimen 02/07/2014 4:23 AM 014 4:24 (specimen) CDT AM CDT Omaira Chavez PA-C LAB - BLOOD ORDERABLES Performing Organization Address City/State/ZIP Code Phon e Number [facility] [address] [place] [address] [facility] LABS (ABNORMAL) Glucose by meter (02/06/2014 10:06 PM CDT) P athologist Signature Glucose 247 (H) 60 - 99 POINT OF CARE mg/dL TEST, GLUCOSE Specimen Anatomical Collection Method Collection Time Receive d Time (Source) Location / / Volume Laterality 02/06/2014 10:06 02/06/2014 PM CDT 10:10 PM CDT Migel LARES - BEAKER POCT Performing Organization Address City/[facility]/ZIP Code Phon e Number FV POINT [...] CDT Migel JONES POCT Performing Organization Address City/[facility]/ZIP Code Phon e Number FV POINT [...] Signature Hemoglobin 8.8 (L) 13.3 - 17.7 [facility] g/dL [place] [facility] Specimen Anatomical Collection Method Collection Time Receive d Time (Source) Location / / Volume Laterality Blood specimen 02/06/2014 4:59 PM 014 5:12 (specimen) CDT PM CDT Omaira Chavez PA-C LAB - BLOOD ORDERABLES Performing Organization Address City/[facility]/ZIP Code Phon e Number [facility] [address] LABS (ABNORMAL) Glucose by meter (02/06/2014 12:01 PM CDT) P athologist Signature Glucose 181 (H) 60 - 99 POINT OF CARE mg/dL TEST, GLUCOSE Specimen Anatomical Collection Method Collection Time Receive d Time (Source) Location / / Volume Laterality 02/06/2014 12:01 02/06/2014 PM CDT 12:05 PM CDT Migel LARES - ROBERT POCT Performing Organization Address City/[facility]/ZIP Code Phon e Number FV POINT OF CARE TEST, GLUCOSE POINT OF CARE TEST, GLUCOSE (ABNORMAL) Partial thromboplastin time (02/06/2014 5:57 AM CDT) P athologist Signature PTT 154 (HH) 22 - 37 sec [facility] LABS Comment: Critical Value called to and read back Whitney Poon RN AT 0642. PW Specimen Anatomical Collection Method Collection Time Receive d Time (Source) Location / / Volume Laterality 02/06/2014 5:57 AM 4 6:03 CDT AM CDT Adeline Diaz MD LAB - BLOOD ORDERABLES Performing Organization Address City/[facility]/ZIP Code Phon e Number [facility] [address] [place], [place] [phone] [place] [address] LABS Heparin Xa (10a) Level (02/06/2014 5:57 AM CDT) P athologist Signature Heparin 10A 0.92 IU/mL [facility] LABS Comment: Therapeutic Range: ?? UFH: [...] LAB - BLOOD ORDERABLES Performing Organization Address City/[facility]/ZIP Code Phon e Number [address] LABS (ABNORMAL) INR (02/06/2014 5:57 AM CDT) P athologist Signature INR 1.32 (H) 0.86 - 1.14 [facility] LABS Specimen Anatomical Collection Method Collection Time Receive d Time (Source) Location / / Volume Laterality Blood specimen 02/06/2014 5:57 AM 014 6:03 (specimen) CDT AM CDT Omaira Chavez PA-C LAB - BLOOD ORDERABLES Performing Organization Address City/[facility]/ZIP Code Phon e Number [address] LABS (ABNORMAL) Basic metabolic panel (02/06/2014 5:57 AM CDT) Patholo gist Method Time Signature Sodium 142 133 - 144 [facility] mmol/L [facility] LABS Potassium 4.7 3.4 - 5.3 [facility] mmol/L [facility]S Chloride 106 94 - 109 [facility] mmol/L [facility] Carbon Dioxide 28 20 - 32 [facility] mmol/L [facility] Anion Gap 8 6 - 17 [facility] mmol/L [facility] Glucose 196 (H) 60 - 99 [facility] mg/dL [facility] Urea Nitrogen 71 (H) 7 - 30 [facility] mg/dL [facility] Creatinine 3.96 (H) 0.66 - [facility] 1.25 mg/dL [facility] GFR Estimate 15 (L) >60 [facility] mL/min/1.7 [place] m2 [place] [facility] GFR Estimate If 19 (L) >60 [facility] Black mL/min/1.[address] LABS Calcium 9.4 8.5 - 10.4 [facility] mg/dL [facility] Specimen Anatomical Collection Method Collection Time Receive d Time (Source) Location / / Volume Laterality Blood specimen 02/06/2014 5:57 AM 014 6:03 (specimen) CDT AM CDT Omaira Chavez PA-C LAB - BLOOD ORDERABLES Performing Organization Address City/[facility]/ZIP Code Phon e Number [address] LABS Phosphorus (02/06/2014 5:57 AM CDT) P athologist Signature Phosphorus 4.5 2.5 - 4.5 [facility] mg/dL [place] [facility] Specimen Anatomical Collection Method Collection Time Receive d Time (Source) Location / / Volume Laterality Blood specimen 02/06/2014 5:57 AM 014 6:03 (specimen) CDT AM CDT Omaira Chavez PA-C LAB - BLOOD ORDERABLES Performing Organization Address City/State/ZIP Code Phon e Number [facility] [address] LABS Magnesium (02/06/2014 5:57 AM CDT) P athologist Signature Magnesium 1.9 1.6 - 2.3 [facility] mg/dL [place] [facility] Specimen Anatomical Collection Method Collection Time Receive d Time (Source) Location / / Volume Laterality Blood specimen 02/06/2014 5:57 AM 014 6:03 (specimen) CDT AM CDT Omaira Chavez PA-C LAB - BLOOD ORDERABLES Performing Organization Address City/State/ZIP Code Phon e Number [address] [address] [place] [facility] (ABNORMAL) CBC with platelets differential (02/06/2014 5:57 AM CDT) [facility] gist Method Time Signature WBC 5.1 4.0 - [facility] 11.0 [facility] 10e9/L [facility]S RBC Count 3.13 (L) 4.4 - 5.9 [facility] 10e12/L [facility] Hemoglobin 9.6 (L) 13.3 - [facility] 17.7 g/dL [facility] Hematocrit 29.0 (L) 40.0 - [facility] 53.0 % [facility] MCV 93 78 - 100 [facility] fl [facility] MCH 30.7 26.5 - [facility] 33.0 pg [facility] MCHC 33.1 31.5 - [facility] 36.5 g/dL [facility] RDW 14.5 10.0 - [facility] 15.0 % [facility] Platelet Count 85 (L) 150 - 450 [facility] 10e9/L [facility] Diff Method Automated [facility] Method [facility] % Neutrophils 86.0 % [facility] % Lymphocytes 5.1 % [facility] % Monocytes 8.7 % [facility] % Eosinophils 0.0 % [facility] % Basophils 0.0 % [facility] % Immature 0.2 % [facility] Granulocytes [facility] Absolute 4.4 1.6 - 8.3 [facility] Neutrophil 10e9/L [facility] Absolute 0.3 (L) 0.8 - 5.3 [facility] Lymphocytes 10e9/L [facility] Absolute 0.4 0.0 - 1.3 [facility] Monocytes 10e9/L [facility] Absolute 0.0 0.0 - 0.7 [facility] Eosinophils 10e9/L [facility] Absolute 0.0 0.0 - 0.2 [facility] Basophils 10e9/L [facility] Abs Immature 0.0 0 - 0.4 [facility] Granulocytes 10e9/L [facility] Specimen Anatomical Collection Method Collection Time Receive d Time (Source) Location / / Volume Laterality Blood specimen 02/06/2014 5:57 AM 014 6:03 (specimen) CDT AM CDT Omaira Chavez PA-C LAB - BLOOD ORDERABLES Performing Organization Address [facility]/ZIP Code Phon e Number [facility] [address] LABS (ABNORMAL) Lipid panel reflex to direct LDL (02/06/2014 5:57 AM CDT) P athologist Signature Cholesterol 126 <200 mg/dL [facility] LAB[facility] Comment: LDL Cholesterol is the primary guide to therapy. The NCEP recommends further evaluation of: patients with cholesterol greater than 200 mg/dL if additional risk facto rs are present, cholesterol greater than 240 mg/dL, triglycerides greater than 1 50 mg/dL, or HDL less than 40 mg/dL. Triglycerides 100 0 - 150 mg/dL [facility] HDL Cholesterol 35 (L) >40 mg/dL [facility] LABS LDL Cholesterol Calculated 71 0 - 129 mg/dL [facility] LAB[facility] Comment: LDL Cholesterol is the primary guide to therapy: LDL-cholesterol goal in high risk patients is <100 mg/dL and in very high risk patients is <70 mg/dL. VLDL-Cholesterol 20 0 - 30 mg/dL [facility] Cholesterol/HDL Ratio 3.6 0.0 - 5.0 [facility] Specimen Anatomical Collection Method Collection Time Receive d Time (Source) Location / / Volume Laterality Blood specimen 02/06/2014 5:57 AM 2 014 6:03 (specimen) CDT AM CDT Omaira Chavez PA-C LAB - BLOOD ORDERABLES Performing Organization Address City/[facility]/ZIP Code Phon e Number [facility] [address] [place] [address] [facility] LABS Tacrolimus level (02/06/2014 5:57 AM CDT) Patholo gist Method Time Signature Tacrolimus S Negative [facility] Last Dose [facility]S Tacrolimus 12.7 5.0 - [facility] Level 15.0 ug/L [facility] Comment: Tacrolimus Reference Range Kidney [...] Phon e Number [facility] [address] [place] [address] [facility] LABS (ABNORMAL) Glucose by meter (02/06/2014 [...] athologist Signature Hemoglobin 10.2 (L) 13.3 - [facility] 17.7 g/dL [place] [facility] Specimen Anatomical Collection Method Collection Time Receive d Time (Source) Location / / Volume Laterality Blood specimen 02/06/2014 1:02 AM 014 1:11 (specimen) CDT AM CDT Deysi Alicea MD LAB - BLOOD ORDERABLES Performing Organization Address City/State/ZIP Code Phon e Number [phone] [place] [address] LABS (ABNORMAL) Glucose by meter (02/05/2014 10:23 [...] CDT) athologist Signature Heparin 10A 0.64 IU/mL [facility] LABS Comment: Therapeutic Range: ?? UFH: [...] Organization Address City/State/ZIP Code Phon e Number [address] [address] [facility] LABS (ABNORMAL) Glucose by meter (02/05/2014 6:04 PM CDT) P athologist Signature Glucose 232 (H) 60 - 99 POINT OF CARE mg/dL TEST, GLUCOSE Specimen Anatomical Collection Method Collection Time Receive d Time (Source) Location / / Volume Laterality 02/05/2014 6:04 PM 4 6:10 CDT PM CDT Migel Merchant MD LAB - BEAKER POCT Performing Organization Address [facility] Phon e Number FV POINT OF CARE [...] PM CDT Migel Merchant MD LAB - BEJA POCT Performing Organization Address City/[facility] Phon e Number FV POINT OF CARE [...] LARES - BEAJ POCT Performing Organization Address [facility] Phon e Number FV POINT OF CARE [...] Signature INR 1.24 (H) 0.86 - 1.14 [facility] LABS Specimen Anatomical Collection Method Collection Time Receive d Time (Source) Location / / Volume Laterality Blood specimen 02/05/2014 12:04 4 (specimen) PM CDT 12:10 PM CDT Teresa Wright [facility] LAB - BLOOD ORDERABLES Performing Organization Address City/State/ZIP Code Phon e Number [phone] [place] [address] LABS (ABNORMAL) CBC with platelets (02/05/2014 12:04 PM CDT) [facility] gist Method Time Signature WBC 7.4 4.0 - 11.0 [facility] 10e9/L [facility] LABS RBC Count 3.31 (L) 4.4 - 5.9 [facility] 10e12/L [facility]S Hemoglobin 10.3 (L) 13.3 - [facility] 17.7 g/dL [facility]S Hematocrit 31.0 (L) 40.0 - [facility] 53.0 % [facility]S MCV 94 78 - 100 [facility] fl [facility] MCH 31.1 26.5 - [facility] 33.0 pg [facility] MCHC 33.2 31.5 - [facility] 36.5 g/dL [facility] RDW 14.7 10.0 - [facility] 15.0 % [facility] Platelet Count 91 (L) 150 - 450 [facility] 10e9/L [facility] Specimen Anatomical Collection Method Collection Time Receive d Time (Source) Location / / Volume Laterality Blood specimen 02/05/2014 12:04 4 (specimen) PM CDT 12:10 PM CDT Omaira Chavez PA-C LAB - BLOOD ORDERABLES Performing Organization Address City/State/ZIP Code Phon e Number [facility] [address] [place] [address] [facility] LABS (ABNORMAL) Glucose by meter (02/05/2014 11:25 AM CDT) P athologist Signature Glucose 190 (H) 60 - 99 POINT OF CARE mg/dL TEST, GLUCOSE Specimen Anatomical Collection Method Collection Time Receive d Time (Source) Location / / Volume Laterality 02/05/2014 11:25 02/05/2014 AM CDT 11:30 AM CDT Migel Merchant MD LAB - BEAKER POCT Performing Organization Address City/[facility]/ZIP Code Phon e Number FV POINT [...] LARES - BEAJ POCT Performing Organization Address City/[facility]/ZIP Code Phon e Number FV POINT [...] Basic metabolic panel (02/05/2014 7:02 AM CDT) [facility] gist Method Time Signature Sodium 143 133 - 144 [facility] mmol/L [facility] Potassium 4.3 3.4 - 5.3 [facility] mmol/L [facility] Chloride 107 94 - 109 [facility] mmol/L [facility] Carbon Dioxide 25 20 - 32 [facility] mmol/L [facility] [place] [facility] Anion Gap 10 6 - 17 [...] Organization Address City/State/ZIP Code Phon e Number [phone] [place] [address] LABS (ABNORMAL) Phosphorus (02/05/2014 7:02 AM CDT) athologist Signature Phosphorus 5.7 (H) 2.5 - 4.5 [facility] mg/dL [facility]AMP[facility] LABS Specimen Anatomical Collection Method Collection Time Receive d Time (Source) Location / / Volume Laterality Blood specimen 02/05/2014 7:02 AM 014 7:05 (specimen) CDT AM CDT Omaira Chavez PA-C LAB - BLOOD ORDERABLES Performing Organization Address City/[facility]/ZIP Code Phon e Number [facility] [address] [place], [place] [phone] [place] [address] LABS Magnesium (02/05/2014 7:02 AM CDT) P athologist Signature Magnesium 2.0 1.6 - 2.3 [facility] mg/dL [place] [facility] Specimen Anatomical Collection Method Collection Time Receive d Time (Source) Location / / Volume Laterality Blood specimen 02/05/2014 7:02 AM 014 7:05 (specimen) CDT AM CDT Omaira Chavez PA-C LAB - BLOOD ORDERABLES Performing Organization Address City/[facility]/ZIP Code Phon e Number [facility] [address] [place] [address] [facility] (ABNORMAL) CBC with platelets differential (02/05/2014 7:02 AM CDT) Patholo gist Method Time Signature WBC 8.9 4.0 - [facility] 11.0 [facility] 10e9/L [facility] RBC Count 3.20 (L) 4.4 - 5.9 [facility] 10e12/L [facility] Hemoglobin 9.7 (L) 13.3 - [facility] 17.7 g/dL [facility] Hematocrit 30.0 (L) 40.0 - [facility] 53.0 % [facility] MCV 94 78 - 100 [facility] fl [facility] MCH 30.3 26.5 - [facility] 33.0 pg [facility]C 32.3 31.5 - [facility] 36.5 g/dL [facility] RDW 14.6 10.0 - [facility] 15.0 % [facility] Platelet Count 96 (L) 150 - 450 [facility] 10e9/L [facility] Diff Method Automated [facility] Method [facility] % Neutrophils 90.2 % [facility] % Lymphocytes 4.4 % [facility] % Monocytes 5.2 % [facility] % Eosinophils 0.0 % [facility] % Basophils 0.0 % [facility] % Immature 0.2 % [facility] Granulocytes [facility] [place] Absolute 8.1 1.6 - 8.3 [facility] Neutrophil 10e9/L [facility] Absolute 0.4 (L) 0.8 - 5.3 [facility] Lymphocytes 10e9/L [facility] Absolute 0.5 0.0 - 1.3 [facility] Monocytes 10e9/L [facility] Absolute 0.0 0.0 - 0.7 [facility] Eosinophils 10e9/L [facility] Absolute 0.0 0.0 - 0.2 [facility] Basophils 10e9/L [facility] Abs Immature 0.0 0 - 0.4 [facility] Granulocytes 10e9/L [facility] Specimen Anatomical Collection Method Collection Time Receive d Time (Source) Location / / Volume Laterality Blood specimen 02/05/2014 7:02 AM 014 7:05 (specimen) CDT AM CDT Omaira Chavez PA-C LAB - BLOOD ORDERABLES Performing Organization Address City/[facility] Phon e Number [address] LABS (ABNORMAL) Parathormone intact (02/05/2014 7:02 AM CDT) Patholo gist Method Time Signature Parathyroid 362 (H) 12 - 72 [facility] Hormone Intact pg/mL [facility] Specimen Anatomical Collection Method Collection Time Receive d Time (Source) Location / / Volume Laterality Blood specimen 02/05/2014 7:02 AM 014 7:05 (specimen) CDT AM CDT Sina Robison MD LAB - BLOOD ORDERABLES Performing Organization Address City/[facility]/ZIP Code Phon e Number [address] LABS (ABNORMAL) Ferritin (02/05/2014 7:02 AM CDT) P athologist Signature Ferritin 932 (H) 20 - 300 [facility] ng/mL [place] [facility] Specimen Anatomical Collection Method Collection Time Receive d Time (Source) Location / / Volume Laterality Blood specimen 02/05/2014 7:02 AM 014 7:05 (specimen) CDT AM CDT Sina Robison MD LAB - BLOOD ORDERABLES Performing Organization Address City/[facility]/ZIP Code Phon e Number [facility] [address] [place] [address] [facility] LABS (ABNORMAL) Iron and iron binding capacity (02/05/2014 7:02 AM CDT) Analysis Performed At Patho logist Time Signature Iron 119 35 - 180 [facility] ug/dL [facility] Iron Binding 207 (L) 240 - 430 [facility] Cap ug/dL [facility] Iron Saturation 58 (H) 15 - 46 % [facility] Index [facility] Specimen Anatomical Collection Method Collection Time Receive d Time (Source) Location / / Volume Laterality Blood specimen 02/05/2014 7:02 AM 014 7:05 (specimen) CDT AM CDT Sina Robison MD LAB - BLOOD ORDERABLES Performing Organization Address City/[facility]/ZIP Code Phon e Number [facility] [address] [place] [address] [facility] LABS (ABNORMAL) Glucose by meter (02/05/2014 6:59 AM CDT) athologist Signature Glucose 123 (H) 60 - 99 POINT OF CARE mg/dL TEST, GLUCOSE Specimen Anatomical Collection Method Collection Time Receive d Time (Source) Location / / Volume Laterality 02/05/2014 6:59 AM 4 7:05 CDT AM CDT Migel LARES - BEAJ POCT Performing Organization Address City/[facility]/ZIP Code Phon e Number FV POINT [...] LARES - BEAJ POCT Performing Organization Address City/[facility]/ZIP Code Phon e Number FV POINT [...] LAB - BEAKER POCT Performing Organization Address [facility] Phon e Number FV POINT OF CARE [...] LAB - BEAJ POCT Performing Organization Address [facility] Phon e Number FV POINT OF CARE [...] LAB - BEAJ POCT Performing Organization Address [facility] Phon e Number FV POINT OF CARE [...] LAB - BEAJ POCT Performing Organization Address [facility] Phon e Number FV POINT OF CARE [...] LAB - ROBERT POCT Performing Organization Address [facility] Phon e Number FV POINT OF CARE [...] LARES - ROBERT POCT Performing Organization Address [facility] Phon e Number FV POINT OF CARE TEST, GLUCOSE POINT OF CARE TEST, GLUCOSE EKG 12-lead, complete (02/04/2014 11:09 PM CDT) [facility] gist Method Time Signature Interpretation ECG Click View RADIOLOGY Image link RESULTS to view waveform and result Specimen (Source) Anatomical Collection Method Collection Time Re ceived Time Location / / Volume Laterality 02/04/2014 11:09 PM CDT Chemo Carr MD ECG ORDERABLES Performing Organization Address [facility] Phon e Number RADIOLOGY RESULTS (ABNORMAL) Glucose by meter (02/04/2014 10:56 PM CDT) P athologist Signature Glucose 161 (H) 60 - 99 POINT OF CARE mg/dL TEST, GLUCOSE Specimen Anatomical Collection Method Collection Time Receive d Time (Source) Location / / Volume Laterality 02/04/2014 10:56 02/04/2014 PM CDT 11:00 PM CDT Migel LARES - ROBERT POCT Performing Organization Address [facility] Phon e Number FV POINT OF CARE [...] LAB - BEAKER POCT Performing Organization Address City/[facility]/ZIP Code Phon e Number FV POINT [...] LAB - BEAJ POCT Performing Organization Address City/[facility]/ZIP Code Phon e Number FV POINT [...] LARES - BEAKER POCT Performing Organization Address City/[facility]/ZIP Code Phon e Number FV POINT OF CARE TEST, GLUCOSE POINT OF CARE TEST, GLUCOSE Troponin I (02/04/2014 7:10 PM CDT) P athologist Signature Troponin I 0.016 0.000 - [facility] 0.034 ug/L [place] [facility] Specimen Anatomical Collection Method Collection Time Receive d Time (Source) Location / / Volume Laterality Blood specimen 02/04/2014 7:10 PM 014 7:23 (specimen) CDT PM CDT Adeline Diaz MD LAB - BLOOD ORDERABLES Performing Organization Address City/State/ZIP Code Phon e Number [address] [address] [facility] LABS (ABNORMAL) Glucose by meter (02/04/2014 7:01 PM CDT) P athologist Signature Glucose 157 (H) 60 - 99 POINT OF CARE mg/dL TEST, GLUCOSE Specimen Anatomical Collection Method Collection Time Receive d Time (Source) Location / / Volume Laterality 02/04/2014 7:01 PM 4 7:05 CDT PM CDT Migel Merchant MD LAB - BEAKER POCT Performing Organization Address City/[facility]/ZIP Code Phon e Number FV POINT [...] LAB - BEAKER POCT Performing Organization Address City/[facility]/ZIP Code Phon e Number FV POINT [...] LAB - BEAJ POCT Performing Organization Address City/[facility]/ZIP Code Phon e Number FV POINT [...] athologist Signature Troponin I 0.025 0.000 - [facility] 0.034 ug/L [place] [facility] Specimen Anatomical Collection Method Collection Time Receive d Time (Source) Location / / Volume Laterality Blood specimen 02/04/2014 12:42 4 (specimen) PM CDT 12:45 PM CDT Adeline Diaz MD LAB - BLOOD ORDERABLES Performing Organization Address City/[facility]/ZIP Code Phon e Number [id number] [place] [address] LABS (ABNORMAL) Glucose by meter (02/04/2014 12:27 PM CDT) P athologist Signature Glucose 140 (H) 60 - 99 POINT OF CARE mg/dL TEST, GLUCOSE Specimen Anatomical Collection Method Collection Time Receive d Time (Source) Location / / Volume Laterality 02/04/2014 12:27 02/04/2014 PM CDT 12:30 PM CDT Migel Merchant MD LAB - BEAKER POCT Performing Organization Address City/[facility]/ZIP Code Phon e Number FV POINT [...] LARES - ROBERT POCT Performing Organization Address [facility] Phon e Number FV POINT OF CARE [...] Chavez PA-C ECG ORDERABLES Performing Organization Address [facility] Phon e Number RADIOLOGY RESULTS (ABNORMAL) Glucose by meter (02/04/2014 9:02 AM CDT) P athologist Signature Glucose 203 (H) 60 - 99 POINT OF CARE mg/dL TEST, GLUCOSE Specimen Anatomical Collection Method Collection Time Receive d Time (Source) Location / / Volume Laterality 02/04/2014 9:02 AM 4 9:05 CDT AM CDT Migel LARES - ROBERT POCT Performing Organization Address [facility] Phon e Number FV POINT OF CARE [...] LARES - ROBERT POCT Performing Organization Address [facility] Phon e Number FV POINT OF CARE [...] LAB - BEAKER POCT Performing Organization Address City/[facility]/ZIP [facility] Phon e Number FV POINT OF CARE TEST, GLUCOSE POINT OF CARE TEST, GLUCOSE EKG 12-lead, complete (02/04/2014 7:03 AM CDT) [facility] gist Method Time Signature Interpretation ECG Click View RADIOLOGY Image link RESULTS to view waveform and result Specimen (Source) Anatomical Collection Method Collection Time Re ceived Time Location / / Volume Laterality 02/04/2014 7:03 AM CDT Caitlin Owens MD ECG ORDERABLES Performing Organization Address [facility] Code Phon e Number RADIOLOGY RESULTS (ABNORMAL) Glucose by meter (02/04/2014 6:09 AM CDT) athologist Signature Glucose 160 (H) 60 - 99 POINT OF CARE mg/dL TEST, GLUCOSE Specimen Anatomical Collection Method Collection Time Receive d Time (Source) Location / / Volume Laterality 02/04/2014 6:09 AM 4 6:15 CDT AM CDT Migel Merchant MD LAB - BEAKER POCT Performing Organization Address [facility] Phon e Number FV POINT OF CARE TEST, GLUCOSE POINT OF CARE TEST, GLUCOSE Troponin I (02/04/2014 5:49 AM CDT) athologist Signature Troponin I ES <0.012 0.000 - [facility] 0.034 ug/L CAMPUS LABS Specimen Anatomical Collection Method Collection Time Receive d Time (Source) Location / / Volume Laterality 02/04/2014 5:49 AM 4 5:51 CDT AM CDT Caitlin Owens MD LAB - BLOOD ORDERABLES Performing Organization Address City/[facility]/ZIP Code Phon e Number [id number] [place] [address] LABS (ABNORMAL) Basic metabolic panel (02/04/2014 5:49 AM CDT) Patholo gist Method Time Signature Sodium 142 133 - 144 [facility] mmol/L [facility] Potassium 4.9 3.4 - 5.3 [facility] mmol/L [facility] Chloride 107 94 - 109 [facility] mmol/L [facility] Carbon Dioxide 23 20 - 32 [facility] mmol/L [facility] Anion Gap 12 6 - 17 [facility] mmol/L [facility] Glucose 151 (H) 60 - 99 [facility] mg/dL [facility] Urea Nitrogen 57 (H) 7 - 30 [facility] mg/dL [facility] Creatinine 5.94 (H) 0.66 - [facility] 1.25 mg/dL [facility] GFR Estimate 10 (L) >60 [facility] mL/min/1.7 [place] m2 [place] [facility] GFR Estimate If 12 (L) >60 [facility] Black mL/min/1.[address] LABS Calcium 9.4 8.5 - 10.4 [facility] mg/dL [facility] Specimen Anatomical Collection Method Collection Time Receive d Time (Source) Location / / Volume Laterality Blood specimen 02/04/2014 5:49 AM 014 5:51 (specimen) CDT AM CDT Omaira Chavez PA-C LAB - BLOOD ORDERABLES Performing Organization Address City/[facility]/ZIP Code Phon e Number [address] LABS (ABNORMAL) Phosphorus (02/04/2014 5:49 AM CDT) P athologist Signature Phosphorus 6.3 (H) 2.5 - 4.5 [facility] mg/dL [place] [facility] Specimen Anatomical Collection Method Collection Time Receive d Time (Source) Location / / Volume Laterality Blood specimen 02/04/2014 5:49 AM 014 5:51 (specimen) CDT AM CDT Omaira Chavez PA-C LAB - BLOOD ORDERABLES Performing Organization Address City/[facility]/ZIP Code Phon e Number [address] LABS Magnesium (02/04/2014 5:49 AM CDT) [...] Phon e Number [facility] [address] [place] [address] [facility] LABS (ABNORMAL) CBC with platelets differential (02/04/2014 5:49 AM CDT) [facility] gist Method Time Signature WBC 13.8 (H) 4.0 - [facility] 11.0 [facility] 10e9/L [place] [facility] RBC Count 3.10 (L) 4.4 - 5.9 [facility] 10e12/L [facility] Hemoglobin 9.5 (L) 13.3 - [facility] 17.7 g/dL [facility] Hematocrit 28.7 (L) 40.0 - [facility] 53.0 % [facility] MCV 93 78 - 100 [facility] fl [facility] MCH 30.6 26.5 - [facility] 33.0 pg [facility] 33.1 31.5 - [facility] 36.5 g/dL [facility] RDW 14.6 10.0 - [facility] 15.0 % [facility] Platelet Count 91 (L) 150 - 450 [facility] 10e9/L [facility] Diff Method Automated [facility] Method [facility] % Neutrophils 95.8 % [facility] % Lymphocytes 1.2 % [facility] % Monocytes 2.8 % [facility] % Eosinophils 0.0 % [facility] % Basophils 0.0 % [facility] % Immature 0.2 % [facility] Granulocytes [facility] Absolute 13.2 (H) 1.6 - 8.3 [facility] Neutrophil 10e9/L [facility] Absolute 0.2 (L) 0.8 - 5.3 [facility] Lymphocytes 10e9/L [facility] Absolute 0.4 0.0 - 1.3 [facility] Monocytes 10e9/L [facility] Absolute 0.0 0.0 - 0.7 [facility] Eosinophils 10e9/L [facility] Absolute 0.0 0.0 - 0.2 [facility] Basophils 10e9/L [facility] Abs Immature 0.0 0 - 0.4 [facility] Granulocytes 10e9/L [facility] Specimen Anatomical Collection Method Collection Time Receive d Time (Source) Location / / Volume Laterality Blood specimen 02/04/2014 5:49 AM 014 5:51 (specimen) CDT AM CDT Omaira Chavez PA-C LAB - BLOOD ORDERABLES Performing Organization Address City/State/ZIP Code Phon e Number [address] [address] [facility] LABS (ABNORMAL) Glucose by meter (02/04/2014 5:33 AM CDT) P athologist Signature Glucose 155 (H) 60 - 99 POINT OF CARE mg/dL TEST, GLUCOSE Specimen Anatomical Collection Method Collection Time Receive d Time (Source) Location / / Volume Laterality 02/04/2014 5:33 AM 4 5:35 CDT AM CDT Migel LARES - ROBERT POCT Performing Organization Address City/[facility]/ZIP Code Phon e Number FV POINT [...] 4:00 CDT AM CDT Migel LARES - BEJA POCT Performing Organization Address City/State/ZIP Code Phon [...] LAB - BEAJ POCT Performing Organization Address City/[facility] Code Phon e Number FV POINT [...] LARES - ROBERT POCT Performing Organization Address City/[facility] Code Phon e Number FV POINT [...] LARES - ROBERT POCT Performing Organization Address City/[facility] Code Phon e Number FV POINT OF CARE TEST, GLUCOSE POINT OF CARE TEST, GLUCOSE Potassium (02/03/2014 10:16 PM CDT) P athologist Signature Potassium 4.8 3.4 - 5.3 [facility] mmol/L [place] [facility] Specimen Anatomical Collection Method Collection Time Receive d Time (Source) Location / / Volume Laterality Blood specimen 02/03/2014 10:16 4 (specimen) PM CDT 10:19 PM CDT Caitlin Owens MD LAB - BLOOD ORDERABLES Performing Organization Address City/State/ZIP Code Phon e Number [address] LABS (ABNORMAL) Hemoglobin (02/03/2014 10:16 PM CDT) athologist Signature Hemoglobin 9.4 (L) 13.3 - 17.7 [facility] g/dL [place] [facility] Specimen Anatomical Collection Method Collection Time Receive d Time (Source) Location / / Volume Laterality Blood specimen 02/03/2014 10:16 4 (specimen) PM CDT 10:19 PM CDT Caitlin Owens MD LAB - BLOOD ORDERABLES Performing Organization Address City/[facility]/ZIP Code Phon e Number [phone] [place] [address] LABS (ABNORMAL) Glucose by meter (02/03/2014 9:55 [...] CDT Migel JONES POCT Performing Organization Address City/[facility]/ZIP Code Phon e Number FV POINT [...] LAB - BEAKER POCT Performing Organization Address City/[facility]/ZIP Code Phon e Number FV POINT [...] LAB - BEAKER POCT Performing Organization Address [facility] Phon e Number FV POINT OF CARE TEST, GLUCOSE POINT OF CARE TEST, GLUCOSE Potassium (02/03/2014 6:52 PM CDT) athologist Signature Potassium 4.7 3.4 - 5.3 [facility] mmol/L [facility] LABS Specimen Anatomical Collection Method Collection Time Receive d Time (Source) Location / / Volume Laterality Blood specimen 02/03/2014 6:52 PM 014 6:53 (specimen) CDT PM CDT Caitlin Owens MD LAB - BLOOD ORDERABLES Performing Organization Address [facility]/ZIP Code Phon e Number [address] LABS (ABNORMAL) Hemoglobin (02/03/2014 6:52 PM CDT) athologist Signature Hemoglobin 9.6 (L) 13.3 - 17.7 [facility] g/dL [facility] LABS Specimen Anatomical Collection Method Collection Time Receive d Time (Source) Location / / Volume Laterality Blood specimen 02/03/2014 6:52 PM 014 6:53 (specimen) CDT PM CDT Caitlin Owens MD LAB - BLOOD ORDERABLES Performing Organization Address City/[facility] [place] [address] [facility]S (ABNORMAL) Glucose by meter (02/03/2014 [...] LAB - BEAJ POCT Performing Organization Address City/[facility]/ZIP Code Phon e Number FV POINT [...] athologist Signature Potassium 4.7 3.4 - 5.3 [facility] mmol/L [facility]S Specimen Anatomical Collection Method Collection Time Receive d Time (Source) Location / / Volume Laterality Blood specimen 02/03/2014 1:41 PM 014 1:43 (specimen) CDT PM CDT Caitlin Owens MD LAB - BLOOD ORDERABLES Performing Organization Address City/[facility]/ZIP Code Phon e Number [address] LABS (ABNORMAL) Hemoglobin (02/03/2014 1:41 PM CDT) athologist Signature Hemoglobin 9.8 (L) 13.3 - 17.7 [facility] g/dL [place] [facility] Specimen Anatomical Collection Method Collection Time Receive d Time (Source) Location / / Volume Laterality Blood specimen 02/03/2014 1:41 PM 014 1:43 (specimen) CDT PM CDT Caitlin Owens MD LAB - BLOOD ORDERABLES Performing Organization Address City/[facility]/ZIP Code Phon e Number [address] LABS (ABNORMAL) Glucose by meter (02/03/2014 [...] LAB - BEAKER POCT Performing Organization Address City/[facility]/ZIP Code Phon e Number FV POINT [...] LAB - BEAKER POCT Performing Organization Address City/[facility] Phon e Number FV POINT OF CARE TEST, GLUCOSE POINT OF CARE TEST, GLUCOSE Potassium (02/03/2014 10:11 AM CDT) athologist Signature Potassium 4.8 3.4 - 5.3 [facility] mmol/L [facility]S Specimen Anatomical Collection Method Collection Time Receive d Time (Source) Location / / Volume Laterality Blood specimen 02/03/2014 10:11 4 (specimen) AM CDT 10:23 AM CDT Caitlin Owens MD LAB - BLOOD ORDERABLES Performing Organization Address City/[facility] Code Phon e Number [address] LABS (ABNORMAL) Hemoglobin (02/03/2014 10:11 AM CDT) P athologist Signature Hemoglobin 9.7 (L) 13.3 - 17.7 [facility] g/dL [facility] LABS Specimen Anatomical Collection Method Collection Time Receive d Time (Source) Location / / Volume Laterality Blood specimen 02/03/2014 10:11 4 (specimen) AM CDT 10:23 AM CDT Caitlin Owens MD LAB - BLOOD ORDERABLES Performing Organization Address City/[facility] Phon e Number [address] LABS (ABNORMAL) Glucose by meter (02/03/2014 9:58 AM CDT) P athologist Signature Glucose 168 (H) 60 - 99 POINT OF CARE mg/dL TEST, GLUCOSE Specimen Anatomical Collection Method Collection Time Receive d Time (Source) Location / / Volume Laterality 02/03/2014 9:58 AM 4 CDT 10:00 AM CDT Migel Merchant MD LAB - BEAJ POCT Performing Organization Address City/[facility] Phon e Number FV POINT OF CARE [...] LARES - ROBERT POCT Performing Organization Address City/[facility] Phon e Number FV POINT OF CARE [...] 8:10 CDT AM CDT Migel LARES - [facility] POCT Performing Organization Address City/State/ZIP [...] LARES - BEAJ POCT Performing Organization Address City/[facility]/ZIP Code Phon e Number FV POINT OF CARE TEST, GLUCOSE POINT OF CARE TEST, GLUCOSE (ABNORMAL) Basic metabolic panel (02/03/2014 5:38 AM CDT) Patholo gist Method Time Signature Sodium 141 133 - 144 [facility] mmol/L [facility] Potassium 4.4 3.4 - 5.3 [facility] mmol/L [facility] Chloride 105 94 - 109 [facility] mmol/L [facility] [place] [facility] Carbon Dioxide 20 20 - 32 [facility] mmol/L [facility] Anion Gap 15 6 - 17 [facility] mmol/L [facility] Glucose 170 (H) 60 - 99 [facility] mg/dL [facility] [place] [facility] Urea Nitrogen 49 (H) 7 - 30 [facility] mg/dL [facility] [place] [facility] Creatinine 6.38 (H) 0.66 - [facility] 1.25 mg/dL [facility] [place] [facility] GFR Estimate 9 (L) >60 [facility] [...] Phon e Number [facility] [address] [place] [address] [facility] LABS (ABNORMAL) Phosphorus (02/03/2014 5:38 AM CDT) P athologist Signature Phosphorus 4.7 (H) 2.5 - 4.5 [facility] mg/dL [place] [facility] Specimen Anatomical Collection Method Collection Time Receive d Time (Source) Location / / Volume Laterality Blood specimen 02/03/2014 5:38 AM 014 5:40 (specimen) CDT AM CDT Omaira Chavez PA-C LAB - BLOOD ORDERABLES Performing Organization Address City/State/ZIP Code Phon e Number [facility] [address] [place] [address] [facility] Magnesium (02/03/2014 5:38 AM CDT) athologist Signature Magnesium 2.0 1.6 - 2.3 [facility] mg/dL [place] [facility] Specimen Anatomical Collection Method Collection Time Receive d Time (Source) Location / / Volume Laterality Blood specimen 02/03/2014 5:38 AM 014 5:40 (specimen) CDT AM CDT Omaira Chavez PA-C LAB - BLOOD ORDERABLES Performing Organization Address City/State/ZIP Code Phon e Number [facility] [address] [place] [address] [facility] LABS (ABNORMAL) CBC with platelets differential (02/03/2014 5:38 AM CDT) Patholo gist Method Time Signature WBC 13.2 (H) 4.0 - [facility] 11.0 [place] 10e9/L [place] [facility] RBC Count 3.20 (L) 4.4 - 5.9 [facility] 10e12/L [facility] Hemoglobin 9.9 (L) 13.3 - [facility] 17.7 g/dL [facility] Hematocrit 30.2 (L) 40.0 - [facility] 53.0 % [facility] MCV 94 78 - 100 [facility] fl [facility] MCH 30.9 26.5 - [facility] 33.0 pg [facility] MCHC 32.8 31.5 - [facility] 36.5 g/dL [facility] RDW 14.5 10.0 - [facility] 15.0 % [facility] Platelet Count 108 (L) 150 - 450 [facility] 10e9/L [facility] Diff Method Automated [facility] Method [facility] % Neutrophils 96.9 % [facility] [place] [facility] % Lymphocytes 0.7 % [facility] % Monocytes 2.1 % [facility] [place] [facility] % Eosinophils 0.0 % [facility] % Basophils 0.1 % [facility] % Immature 0.2 % [facility] Granulocytes [facility] [place] [facility] Absolute 12.8 (H) 1.6 - 8.3 [facility] Neutrophil 10e9/L [facility] Absolute 0.1 (L) 0.8 - 5.3 [facility] Lymphocytes 10e9/L [facility] Absolute 0.3 0.0 - 1.3 [facility] Monocytes 10e9/L [facility] Absolute 0.0 0.0 - 0.7 [facility] Eosinophils 10e9/L [facility] LABS Absolute 0.0 0.0 - 0.2 [facility] Basophils 10e9/L [facility] Abs Immature 0.0 0 - 0.4 [facility] Granulocytes 10e9/L [facility] LABS Specimen Anatomical Collection Method Collection Time Receive d Time (Source) Location / / Volume Laterality Blood specimen 02/03/2014 5:38 AM 014 5:40 (specimen) CDT AM CDT Omaira Chavez PA-C LAB - BLOOD ORDERABLES Performing Organization Address City/[facility]/ZIP Code Phon e Number [address] LABS (ABNORMAL) Hemoglobin A1c (02/03/2014 5:38 AM CDT) Analysis Performed At Patho logist Time Signature Hemoglobin A1C 6.2 (H) 4.3 - 6.0 [facility] % [facility] LABS Specimen Anatomical Collection Method Collection Time Receive d Time (Source) Location / / Volume Laterality Blood specimen 02/03/2014 5:38 AM 014 5:40 (specimen) CDT AM CDT Caitlin Owens MD LAB - BLOOD ORDERABLES Performing Organization Address City/[facility]/ZIP Code Phon e Number [address] LABS (ABNORMAL) Glucose by meter (02/03/2014 5:05 AM CDT) P athologist Signature Glucose 176 (H) 60 - 99 POINT OF CARE mg/dL TEST, GLUCOSE Specimen Anatomical Collection Method Collection Time Receive d Time (Source) Location / / Volume Laterality 02/03/2014 5:05 AM 4 5:10 CDT AM CDT Migel Merchant MD LAB - BEAJ POCT Performing Organization Address [facility] Phon e Number FV POINT OF CARE [...] LAB - BEAJ POCT Performing Organization Address [facility] Phon e Number FV POINT OF CARE [...] LAB - BEAJ POCT Performing Organization Address [facility] Code Phon e Number FV POINT [...] LARES - BEAJ POCT Performing Organization Address [facility] Phon e Number FV POINT OF CARE TEST, GLUCOSE POINT OF CARE TEST, GLUCOSE Potassium (02/03/2014 1:18 AM CDT) athologist Signature Potassium 4.7 3.4 - 5.3 [facility] mmol/L [place] [facility] Specimen Anatomical Collection Method Collection Time Receive d Time (Source) Location / / Volume Laterality Blood specimen 02/03/2014 1:18 AM 014 1:20 (specimen) CDT AM CDT Caitlin Owens MD LAB - BLOOD ORDERABLES Performing Organization Address City/[facility]/ZIP Code Phon e Number [facility] [address] LABS (ABNORMAL) Hemoglobin (02/03/2014 1:18 AM CDT) athologist Signature Hemoglobin 9.8 (L) 13.3 - 17.7 [facility] g/dL [place] LABS Specimen Anatomical Collection Method Collection Time Receive d Time (Source) Location / / Volume Laterality Blood specimen 02/03/2014 1:18 AM 014 1:20 (specimen) CDT AM CDT Caitlin Owens MD LAB - BLOOD ORDERABLES Performing Organization Address City/State/ZIP Code Phon e Number [address] LABS (ABNORMAL) Glucose by meter (02/03/2014 1:16 AM CDT) athologist Signature Glucose 186 (H) 60 - 99 POINT OF CARE mg/dL TEST, GLUCOSE Specimen Anatomical Collection Method Collection Time Receive d Time (Source) Location / / Volume Laterality 02/03/2014 1:16 AM 4 1:20 CDT AM CDT Migel eMrchant MD LAB - BEAKER [...] CDT 12:15 AM CDT Migel Merchant MD [facility] POCT Performing Organization Address City/State/ZIP Code Phon [...] athologist Signature Phosphorus 4.4 2.5 - 4.5 [facility] mg/dL CAMPUS LABS Specimen Anatomical Collection Method Collection Time Receive d Time (Source) Location / / Volume Laterality Blood specimen 02/02/2014 10:50 4 (specimen) PM CDT 11:06 PM CDT Caitlin Owens MD LAB - BLOOD ORDERABLES Performing Organization Address City/State/ZIP Code Phon e Number [facility] [address] LABS Magnesium (02/02/2014 10:50 PM CDT) athologist Signature Magnesium 1.8 1.6 - 2.3 [facility] mg/dL [place] [facility] Specimen Anatomical Collection Method Collection Time Receive d Time (Source) Location / / Volume Laterality Blood specimen 02/02/2014 10:50 4 (specimen) PM CDT 11:06 PM CDT Caitlin Owens MD LAB - BLOOD ORDERABLES Performing Organization Address City/[facility]/ZIP Code Phon e Number [facility] [address] LABS (ABNORMAL) Basic metabolic panel (02/02/2014 10:50 PM CDT) [facility] gist Method Time Signature Sodium 138 133 - 144 [facility] mmol/L [facility] LABS Potassium 4.5 3.4 - 5.3 [facility] mmol/L [facility]S Chloride 104 94 - 109 [facility] mmol/L [facility]S Carbon Dioxide 25 20 - 32 [facility] mmol/L [facility]S Anion Gap 10 6 - 17 [facility] mmol/L [facility]S Glucose 134 (H) 60 - 99 [facility] mg/dL [facility]S Urea Nitrogen 44 (H) 7 - 30 [facility] mg/dL [facility]S Creatinine 6.14 (H) 0.66 - [facility] 1.25 mg/dL [facility] LABS GFR Estimate 9 (L) >60 [facility] mL/min/1.7 [place] m2 CAMPUS LABS GFR Estimate If 11 (L) >60 [facility] Black mL/min/1.7 [place] [address] CAMPUS LABS Calcium 8.8 8.5 - 10.4 [facility] mg/dL [facility] LABS Specimen Anatomical Collection Method Collection Time Receive d Time (Source) Location / / Volume Laterality Blood specimen 02/02/2014 10:50 4 (specimen) PM CDT 11:06 PM CDT Caitlin Owens MD LAB - BLOOD ORDERABLES Performing Organization Address City/State/ZIP Code Phon e Number [phone] [place] [address] LABS (ABNORMAL) CBC with platelets differential (02/02/2014 10:50 PM CDT) [facility] Method Time Signature WBC 8.2 4.0 - [facility] 11.0 [facility] 10e9/L [place] [facility] RBC Count 3.34 (L) 4.4 - 5.9 [facility] 10e12/L [facility] Hemoglobin 10.3 (L) 13.3 - [facility] 17.7 g/dL [facility] Hematocrit 30.9 (L) 40.0 - [facility] 53.0 % [facility] MCV 93 78 - 100 [facility] fl [facility] MCH 30.8 26.5 - [facility] 33.0 pg [facility]S MCHC 33.3 31.5 - [facility] 36.5 g/dL [facility] RDW 14.3 10.0 - [facility] 15.0 % [facility] Platelet Count 79 (L) 150 - 450 [facility] 10e9/L [facility]S Diff Method Automated [facility] Method [facility] LABS % Neutrophils 96.7 % [facility] LABS % Lymphocytes 1.6 % [facility] LABS % Monocytes 1.2 % [facility] LABS % Eosinophils 0.4 % [facility] % Basophils 0.0 % [facility] LABS % Immature 0.1 % [facility] Granulocytes [facility] Absolute 7.9 1.6 - 8.3 [facility] Neutrophil 10e9/L [facility] Absolute 0.1 (L) 0.8 - 5.3 [facility] Lymphocytes 10e9/L [facility] Absolute 0.1 0.0 - 1.3 [facility] Monocytes 10e9/L [facility] Absolute 0.0 0.0 - 0.7 [facility] Eosinophils 10e9/L [facility] Absolute 0.0 0.0 - 0.2 [facility] Basophils 10e9/L [facility] Abs Immature 0.0 0 - 0.4 [facility] Granulocytes 10e9/L [facility] Specimen Anatomical Collection Method Collection Time Receive d Time (Source) Location / / Volume Laterality Blood specimen 02/02/2014 10:50 4 (specimen) PM CDT 11:06 PM CDT Caitlin Owens MD LAB - BLOOD ORDERABLES Performing Organization Address City/State/ZIP Code Phon e Number [facility] [address] [place], [place] [phone] [place] [address] LABS (ABNORMAL) VENOUS PANEL (02/02/2014 10:09 PM CDT) [facility] gist Method Time Signature Ph Venous 7.31 (L) 7.32 - [facility] 7.43 pH [facility] PCO2 Venous 52 (H) 40 - 50 [facility] mm Hg [facility] PO2 Venous 34 25 - 47 [facility] mm Hg [facility] LABS Bicarbonate 26 21 - 28 [facility] Venous mmol/L [facility] LABS Base Deficit 0.3 mmol/L [facility] Venous [facility] LABS Comment: Reference range: -7.7 to 1.9 FIO2 45 [facility] LABS Sodium 137 133 - 144 mmol/L [facility] LABS Potassium 4.4 3.4 - 5.3 mmol/L [facility] LABS Hemoglobin 10.0 (L) 13.3 - 17.7 g/dL [facility] LABS Glucose 116 (H) 60 - 99 mg/dL [facility] LABS Calcium Ionized Whole Blood 4.8 4.4 - 5.2 mg/dL [facility] LABS Specimen Anatomical Collection Method Collection Time Receive d Time (Source) Location / / Volume Laterality 02/02/2014 10:09 02/02/2014 PM CDT 10:14 PM CDT Migel Merchant MD LAB - BLOOD ORDERABLES Performing Organization Address City/State/ZIP Code Phon e Number [address] [address] [facility] LABS (ABNORMAL) Glucose by meter (02/02/2014 [...] Venous 7.35 7.32 - [facility] 7.43 pH [facility] LABS PCO2 Venous 50 40 - 50 mm [facility] Hg [facility] PO2 Venous 46 25 - 47 mm [facility] Hg [facility] LABS Bicarbonate 28 21 - 28 [facility] Venous mmol/L [facility] LABS Base Excess 1.8 mmol/L [facility] Venous [facility] LABS Comment: Reference range: -7.7 to 1.9 FIO2 100% [facility] LABS Sodium 141 133 - 144 mmol/L [facility] LABS Potassium 3.7 3.4 - 5.3 mmol/L [facility] LABS Hemoglobin 10.3 (L) 13.3 - 17.7 g/dL [facility] LABS Glucose 76 60 - 99 mg/dL [facility] LABS Calcium Ionized Whole Blood 4.8 4.4 - 5.2 mg/dL [facility] LABS Specimen Anatomical Collection Method Collection Time Receive d Time (Source) Location / / Volume Laterality 02/02/2014 6:40 PM 4 6:44 CDT PM CDT Migel Merchant MD LAB - BLOOD ORDERABLES Performing Organization Address City/[facility]/ZIP Code Phon e Number [facility] [address] [place] [address] [facility] LABS Glucose by meter (02/02/2014 5:11 PM CDT) P athologist Signature Glucose 89 60 - 99 POINT OF CARE mg/dL TEST, GLUCOSE Specimen Anatomical Collection Method Collection Time Receive d Time (Source) Location / / Volume Laterality 02/02/2014 5:11 PM 4 5:15 CDT PM CDT Migel LARES - BEAJ POCT Performing Organization Address City/[facility]/ZIP Code Phon e Number FV POINT [...] LARES - BEAJ POCT Performing Organization Address City/[facility] Code Phon e Number FV POINT [...] MARYELLEN Blood component (02/02/2014 2:07 PM CDT) [employer] Method Time Signature Unit Number [id number] [facility] LABS Blood Red Blood [facility] Component Cells [facility] Leukocyte [place] [facility] Reduced Division 00 [facility] LABS Status of No longer [facility] Unit available [facility] 02/06/2014 HOSPITAL LAB 0300 Specimen Anatomical Collection Method Collection Time Receive d Time (Source) Location / / Volume Laterality 02/02/2014 2:07 PM 4 2:10 CDT PM CDT Caitlin Owens MD LABORATORY Performing Organization Address City/State/ZIP Code Phon e Number M [place] [address] [place], [place] [address] [facility] LABS [facility] LAB Blood component (02/02/2014 2:07 PM CDT) [employer] Method Time Signature Unit Number [id number] [facility] LABS Blood Red Blood [facility] Component Cells [facility] LABS Reduced Division 00 [facility] Number [facility] LABS Status of No longer [facility] Unit available [facility] 02/06/2014 HOSPITAL LAB 0300 Specimen Anatomical Collection Method Collection Time Receive d Time (Source) Location / / Volume Laterality 02/02/2014 2:07 PM 201 4 2:10 CDT PM CDT Caitlin Owens MD LABORATORY Performing Organization Address City/State/ZIP Code Phon e Number M [facility] [address] [place], [place] [address] HOSPITAL [facility] LABS [facility] LAB ABO/Rh type and screen (02/02/2014 2:07 PM CDT) Patholo gist Method Time Signature Units Ordered 2 [facility] LABS ABO A [facility] LAB[facility] RH(D) Pos [facility] LABS Antibody Neg [facility] Screen [facility] LABS Test Valid [facility] Only At [facility] BLOOD BANK Center,[facility] LAB w Hospital Specimen 02/05/2014 [facility] BLOOD BANK LAB Crossmatch Red Blood [facility] Cells [facility] LABS Specimen Anatomical Collection Method Collection Time Receive d Time (Source) Location / / Volume Laterality Blood specimen 02/02/2014 2:07 PM 014 2:10 (specimen) CDT PM CDT Caitlin Owens MD LAB - BLOOD BANK TEST ORDER Performing Organization Address City/State/ZIP Code Phon e Number [facility] [address] [place] [address] [facility] LABS [facility] BLOOD BANK LAB (ABNORMAL) Lipid Profile (02/02/2014 2:07 PM CDT) P athologist Signature Cholesterol 135 <200 mg/dL [facility] LABS Comment: LDL Cholesterol is the primary guide to therapy. The NCEP recommends further evaluation of: patients with cholesterol greater than 200 mg/dL if additional risk facto rs are present, cholesterol greater than 240 mg/dL, triglycerides greater than 1 50 mg/dL, or HDL less than 40 mg/dL. Triglycerides 124 0 - 150 mg/dL [facility] LABS HDL Cholesterol 34 (L) >40 mg/dL [facility] LABS LDL Cholesterol Calculated 77 0 - 129 mg/dL [facility] LABS Comment: LDL Cholesterol is the primary guide to therapy: LDL-cholesterol goal in high risk patients is <100 mg/dL and in very high risk patients is <70 mg/dL. VLDL-Cholesterol 25 0 - 30 mg/dL [facility] LABS Cholesterol/HDL Ratio 4.0 0.0 - 5.0 [facility] LABS Specimen Anatomical Collection Method Collection Time Receive d Time (Source) Location / / Volume Laterality Blood specimen 02/02/2014 2:07 PM 014 2:08 (specimen) CDT PM CDT Caitlin Owens MD LAB - BLOOD ORDERABLES Performing Organization Address City/[facility]/ZIP Code Phon e Number [facility] [address] LABS (ABNORMAL) Hemoglobin A1c (02/02/2014 2:07 PM CDT) Analysis Performed At Patho logist Time Signature Hemoglobin A1C 6.2 (H) 4.3 - 6.0 [facility] LABS Specimen Anatomical Collection Method Collection Time Receive d Time (Source) Location / / Volume Laterality Blood specimen 02/02/2014 2:07 PM 014 2:08 (specimen) CDT PM CDT Caitlin Owens MD LAB - BLOOD ORDERABLES Performing Organization Address City/[facility]/ZIP Code Phon e Number [facility] 500 [place], [place] [phone] [place] [address] LABS Hepatitis C antibody (02/02/2014 2:07 PM [...] Phon e Number [facility] 500 [place], [place] [phone] [place] [address] MICROBIOLOGY Hepatitis B core antibody IgM (02/02/2014 [...] Phon e Number [facility] 500 [place], [place] [phone] [place] [address] MICROBIOLOGY Hepatitis B surface antigen (02/02/2014 2:07 PM CDT) [facility] Signature Hep B Surface Negative NEG [facility] Agn MICROBIOLOGY Specimen Anatomical Collection Method Collection Time Receive d Time (Source) Location / / Volume Laterality Blood specimen 02/02/2014 2:07 PM 2 014 2:08 (specimen) CDT PM CDT Caitlin Owens MD LAB - BLOOD ORDERABLES Performing Organization Address City/State/ZIP Code Phon e Number [facility] 500 [place], [place] [phone] [place] [address] MICROBIOLOGY HIV Antigen Antibody Combo (02/02/2014 2:07 PM CDT) [facility] Signature HIV Antigen Nonreactive NR [facility] Antibody HIV-1 p24 Ag & HIV-1/HIV-2 Ab Not Detected [facility] LABS Specimen Anatomical Collection Method Collection Time Receive d Time (Source) Location / / Volume Laterality Blood specimen 02/02/2014 2:07 PM 2 014 2:08 (specimen) CDT PM CDT Caitlin Owens MD LAB - BLOOD ORDERABLES Performing Organization Address City/[facility]/ZIP Code Phon e Number [facility] [address] LABS EBV Capsid Antibody IgM (02/02/2014 2:07 PM CDT) [facility] Signature EBV Capsid <0.2 0.0 - 0.8 [facility] Antibody IgM No detectable antibody. [facility] [place] LABS Specimen Anatomical Collection Method Collection Time Receive d Time (Source) Location / / Volume Laterality Blood specimen 02/02/2014 2:07 PM 2 014 2:08 (specimen) CDT PM CDT Caitlin Owens MD LAB - BLOOD ORDERABLES Performing Organization Address City/[facility]/ZIP Code Phon e Number [facility] [address] [place], [place] [phone] [place] [address] LABS (ABNORMAL) EBV Capsid Antibody IgG (02/02/2014 2:07 PM CDT) Patholo gist Method Time Signature EBV Capsid >8.0 0.0 - 0.8 [facility] Antibody IgG Positive, suggests recent or past exposure [facility] (H) [place] LABS Specimen Anatomical Collection Method Collection Time Receive d Time (Source) Location / / Volume Laterality Blood specimen 02/02/2014 2:07 PM 014 2:08 (specimen) CDT PM CDT Caitlin Owens MD LAB - BLOOD ORDERABLES Performing Organization Address City/[facility]/ZIP Code Phon e Number [facility] [address] LABS CMV antibody IgM (02/02/2014 2:07 PM CDT) Analysis Performed At Patho logist Time Signature CMV Antibody <0.2 0.0 - 0.8 [facility] IgM Negative [facility] LABS Specimen Anatomical Collection Method Collection Time Receive d Time (Source) Location / / Volume Laterality Blood specimen 02/02/2014 2:07 PM 014 2:08 (specimen) CDT PM CDT Caitlin Owens MD LAB - BLOOD ORDERABLES Performing Organization Address City/[facility]/ZIP Code Phon e Number [facility] [address] LABS (ABNORMAL) CMV Antibody IgG (02/02/2014 2:07 PM CDT) P athologist Signature CMV Antibody 7.8 (H) 0.0 - 0.8 [facility] IgG [facility] LABS Comment: Positive Specimen Anatomical Collection Method Collection Time Receive d Time (Source) Location / / Volume Laterality Blood specimen 02/02/2014 2:07 PM 014 2:08 (specimen) CDT PM CDT Caitlin Owens MD LAB - BLOOD ORDERABLES Performing Organization Address City/[facility]/ZIP Code Phon e Number [address] LABS (ABNORMAL) Comprehensive metabolic panel (02/02/2014 2:07 PM CDT) Patholo gist Method Time Signature Sodium 141 133 - 144 [facility] mmol/L [facility] LABS Potassium 4.2 3.4 - 5.3 [facility] mmol/L [facility] LABS Chloride 101 94 - 109 [facility] mmol/L [facility] LABS Carbon Dioxide 26 20 - 32 [facility] mmol/L [facility] LABS Anion Gap 13 6 - 17 [facility] mmol/L [facility] LABS Glucose 112 (H) 60 - 99 [facility] mg/dL [facility] LABS Urea Nitrogen 42 (H) 7 - 30 [facility] mg/dL [facility] LABS Creatinine 6.03 (H) 0.66 - [facility] 1.25 [place] mg/dL CAMPUS LABS GFR Estimate 9 (L) >60 [facility] mL/min/1. [place] 7m2 [place] LABS GFR Estimate If 11 (L) >60 [facility] Black mL/min/1. [place] [address] CAMPUS LABS Calcium 9.9 8.5 - [facility] 10.4 [place] mg/dL CAMPUS LABS Bilirubin Total 0.7 0.2 - 1.3 [facility] mg/dL [facility] LABS Albumin 4.2 3.3 - 4.9 [facility] g/dL [facility] LABS Protein Total 7.5 6.8 - 8.8 [facility] g/dL [facility] LABS Alkaline 88 40 - 150 [facility] Phosphatase U/L [facility] LABS ALT 33 0 - 70 [facility] U/L [facility] LABS AST 18 0 - 45 [facility] U/L [facility] LABS Specimen Anatomical Collection Method Collection Time Receive d Time (Source) Location / / Volume Laterality Blood specimen 02/02/2014 2:07 PM 014 2:08 (specimen) CDT PM CDT Caitlin Owens MD LAB - BLOOD ORDERABLES Performing Organization Address City/State/ZIP Code Phon e Number [phone] [place] [address] LABS (ABNORMAL) CBC with platelets differential (02/02/2014 2:07 PM CDT) [facility] gist Method Time Signature WBC 6.3 4.0 - [facility] 11.0 [place] 10e9/L [place] LABS RBC Count 3.71 (L) 4.4 - 5.9 [facility] 10e12/L [facility] LABS Hemoglobin 11.5 (L) 13.3 - [facility] 17.7 g/dL [facility] LABS Hematocrit 33.7 (L) 40.0 - [facility] 53.0 % [facility] [place] LABS MCV 91 78 - 100 [facility] fl [facility] LABS MCH 31.0 26.5 - [facility] 33.0 pg [facility] [place] LAB[facility] MCHC 34.1 31.5 - [facility] 36.5 g/dL [facility] LABS RDW 14.0 10.0 - [facility] 15.0 % [facility] LABS Platelet Count 110 (L) 150 - 450 [facility] 10e9/L [facility] LABS Diff Method Automated [facility] Method [facility] LABS % Neutrophils 52.4 % [facility] LABS % Lymphocytes 32.1 % [facility] LABS % Monocytes 7.9 % [facility] % Eosinophils 7.1 % [facility] % Basophils 0.3 % [facility] % Immature 0.2 % [facility] Granulocytes [facility] LABS Absolute 3.3 1.6 - 8.3 [facility] Neutrophil 10e9/L [facility] LABS Absolute 2.0 0.8 - 5.3 [facility] Lymphocytes 10e9/L [facility] LABS Absolute 0.5 0.0 - 1.3 [facility] Monocytes 10e9/L [facility] LABS Absolute 0.5 0.0 - 0.7 [facility] Eosinophils 10e9/L [facility] LABS Absolute 0.0 0.0 - 0.2 [facility] Basophils 10e9/L [facility] LABS Abs Immature 0.0 0 - 0.4 [facility] Granulocytes 10e9/L [facility] LABS Specimen Anatomical Collection Method Collection Time Receive d Time (Source) Location / / Volume Laterality Blood specimen 02/02/2014 2:07 PM 014 2:08 (specimen) CDT PM CDT Caitlin Owens MD LAB - BLOOD ORDERABLES Performing Organization Address City/[facility] Code Phon e Number [address] LABS Creatinine urine calculation only (02/02/2014 2:00 PM CDT) P athologist Signature Creatinine 88 mg/dL [facility] Urine [place] LABS Specimen Anatomical Collection Method Collection Time Receive d Time (Source) Location / / Volume Laterality 02/02/2014 2:00 PM 4 2:12 CDT PM CDT Caitlin Owens MD LAB - URINE ORDERABLES Performing Organization Address City/[facility] Phon e Number [address] LABS (ABNORMAL) Urine culture (02/02/2014 2:00 PM CDT) Component Value Ref Test Analysis Performed At Patholo gist Range Method Time Signature Specimen Midstream Urine [facility] Description [facility] LABS Special Specimen received [facility] Requests in preservative MICROBIOLOGY Culture Micro <10,000 colonies/mL Gram pos itive cocci No further identification Susceptibility [facility] testing not routinely done [place] CROBIOLOGY <10,000 colonies/mL Strain 2 Gram positive [...] MICRO GENERAL ORDERABL ES Performing Organization Address City/[facility] Code Phon e Number [address] LABS [facility] MICROBIOLOGY (ABNORMAL) Protein random urine (02/02/2014 2:00 PM CDT) [facility] Method [place] Signature Protein Random 1.89 g/L [facility] Urine [facility] LABS Protein Total 2.15 (H) 0 - 0.2 [facility] Urine g/gr g/g Cr [facility] LABS Specimen Anatomical Collection Method Collection Time Receive d Time (Source) Location / / Volume Laterality Urine specimen URINE SPECIMEN 02/02/2014 2:00 PM 02/02 2:12 (specimen) OBTAINED BY CLEAN CDT PM CDT CATCH PROCEDURE / Unknown Caitlin Owens MD LAB - URINE ORDERABLES Performing Organization Address City/[facility] Phon e Number [address] LABS (ABNORMAL) Routine UA with microscopic (02/02/2014 2:00 PM CDT) [facility] Method Time Signature Color Urine Light Yellow [facility] [facility] Appearance Urine Clear [facility] Glucose Urine 70 (A) NEG mg/dL [facility] Bilirubin Urine Negative NEG [facility] Ketones Urine Negative NEG mg/dL [facility] Specific [place] 1.008 1.003 - [facility] Urine 1.035 [facility] Blood Urine Negative NEG [facility] pH Urine 8.0 (H) 5.0 - 7.0 [facility] pH [facility] Protein Albumin 100 (A) NEG mg/dL [facility] Urine [facility] Urobilinogen Normal 0.0 - 2.0 [facility] mg/dL mg/dL [facility] Nitrite Urine Negative NEG [facility] Leukocyte Negative NEG [facility] Esterase Urine [facility] Source Clean catch [facility] urine [facility] WBC Urine 1 0 - 2 [facility] /HPF [facility] RBC Urine 0 0 - 2 [facility] /HPF [facility] Squamous <1 0 - 1 [facility] Epithelial /HPF /HPF [facility] Specimen Anatomical Collection Method Collection Time Receive d Time (Source) Location / / Volume Laterality Urine specimen URINE SPECIMEN 02/02/2014 2:00 PM 02/02 2:12 (specimen) OBTAINED BY CLEAN CDT PM CDT CATCH PROCEDURE / Unknown Caitlin Owens MD LAB - URINE ORDERABLES Performing Organization Address City/State/ZIP Code Phon e Number [phone] [place] [address] LABS (ABNORMAL) Glucose by meter (02/02/2014 1:59 PM CDT) athologist Signature Glucose 115 (H) 60 - 99 POINT OF CARE mg/dL TEST, GLUCOSE Specimen Anatomical Collection Method Collection Time Receive d Time (Source) Location / / Volume Laterality 02/02/2014 1:59 PM 4 2:05 CDT PM CDT Migel Merchant MD LAB - BEAKER POCT Performing Organization Address City/[facility]/ZIP Code Phon e Number [facility] POINT OF CARE TEST, GLUCOSE POINT OF CARE TEST, GLUCOSE EKG 12-lead, tracing only (02/02/2014 1:58 PM CDT) [facility] gist Method Time Signature Interpretation ECG Click [...] dose, When verbally ordered by the prescriber. [place] throat with 1-4 sprays 5 minutes prior [...] 0818 (No t Given - Provider: Ganesh Covrarubias RN - Reason: NPO) 0845 (Given - [...] Provider: Ganesh Covarrubias RN)1622 (Given - Provider: Lashuan Braswell, BOGDAN)1656 (Given - Provider: Odalis Seaman)2209 [...] (Not Gi isael - Provider: Lynne Gatica [facility] - Reason: Other - Comment: Dose already [...] draw. documented in this encounter Care Teams Field Artillery Basic Relationship Specialty Start Date End Date Momo Forbes PCP - General [facility] Practice 01/02/14 [facility] [address] [place], [place] [id number] Ingrid Santana, RN Registered Nurse Transplant 02/10/12 10/01/15 documented as of this encounter
--- OUTSIDE RECORDS SUMMARY | 2022-04-07 11:14 | XMS_ITS | Encounter Summary ---
:1950 Author Organization [place] Address [address] [place] [address] Care Team Providers Name Role Phone Toña Jones MD Primary Care Provider Ingrid Santana RN Unavailable Encounter Details Date Type Department Care Team Description 07/03/2012 Results Only LABORATORY RESULTS Barbara Bradley MD [address] [place], [place] [address] Social History Tobacco Use [...] HLA Lukasz Class I Single Antigen (07/03/2012) [facility] gist Method Time Signature SA1 Test [...] / Volume Laterality 07/03/2012 07/05/2012 1:57 PM LONGWALL SHEARER OPERATOR Barbara Bradley MD LAB - IMMUNOLOGY ORDERABLES Performing Organization Address City/State/ZIP Code Phon e Number [facility] Immunology/Histocompatabil [place], [place] [address] ity [facility] [address] Building, Room 3-580 HISTOTRAC documented in this encounter Visit Diagnoses Not on filedocumented in this encounter Care Teams Receiving Tank Operator Relationship Specialty Start Date End Date Toña Jones MD PCP - General Nephrology 11/25/11 01/01/14 Ingrid Santana RN Registered Nurse Transplant 02/10/12 10/01/15 documented as of this encounter
--- OUTSIDE RECORDS SUMMARY | 2022-04-07 11:14 | XMS_ITS | Encounter Summary ---
:1950 Author Organization [place] Address [facility] [place] [address] Care Team Providers Name Role Phone Ingrid Santana RN Unavailable Momo Forbes Primary Care Provider Encounter Details Date Type Department Care Team Description 01/21/2014 Results Only LABORATORY RESULTS Mingo Dangelo MD [address] [facility] [address] [place] [address] (Wo rk) Social History Tobacco [...] Results HLA Flow T/B Crossmatch Allo (01/21/2014) [facility] Method Time Signature Crossmatch Donor:[id number], ?Crossmatch Date:02/02/2014 HISTOTRAC Result (Note) Serum Date [...] Phon e Number [facility] Immunology/Histocompatabil [place], [place] [address] ity [facility]alth [facility] [address] [facility] [address] Building, Room 3-580 HISTOTRAC documented in this encounter Visit Diagnoses Not on filedocumented in this encounter Care Teams Lift Electrician Relationship Specialty Start Date End Date Momo Forbes PCP - General Family Practice 01/02/14 [facility] [address] [place] [address] Ingrid Santana, RN Registered Nurse Transplant 02/10/12 10/01/15 documented as of this encounter
--- OUTSIDE RECORDS SUMMARY | 2022-04-07 11:14 | XMS_ITS | Encounter Summary ---
:1950 Author Organization [place] Address [facility] [place] [address] Care Team Providers Name Role Phone Toña Jones MD Primary Care Provider Ingrid Santana RN Unavailable Encounter Details Date Type Department Care Team Description 08/25/2012 Results Only LABORATORY RESULTS Barbara Bradley MD [address] [place], [place] [address] Social History Tobacco Use [...] AM Results f or this CROSSMATCH ALLO SALES AGENT MARINE INSURANCE procedure ar e in the results section. documented in this encounter Results HLA Flow T/B Crossmatch Allo (08/25/2012 9:49 AM SALES AGENT MARINE INSURANCE) [facility] Method Time Signature Crossmatch Donor:ABRAHAM HICKEY [...] Laterality 08/25/2012 9:49 AM 01/04/201 3 9:06 SALES AGENT MARINE INSURANCE AM SALES AGENT MARINE INSURANCE Barbara Bradley MD LAB - IMMUNOLOGY ORDERABLES Performing Organization Address City/State/ZIP Code Phon e Number [facility] Immunology/Histocompatabil [place], [place] [address] ity ealth [facility] [address] Building, Room 3-580 HISTOTRAC documented in this encounter Visit Diagnoses Not on filedocumented in this encounter Care Teams Auto Slip Cover Installer Relationship Specialty Start Date End Date Toña Jones MD PCP - General Nephrology 11/25/11 01/01/14 Ingrid Santana, RN Registered Nurse Transplant 02/10/12 10/01/15 documented as of this encounter
--- OUTSIDE RECORDS SUMMARY | 2022-04-07 11:14 | XMS_ITS | Encounter Summary ---
:1950 Author Organization [place] Address [facility] [place] [address] Care Team Providers Name Role Phone Toña Jones MD Primary Care Provider Ingrid Santana RN Unavailable Encounter Details Date Type Department Care Team Description 02/28/2013 Orders Only [facility] Molly Sanderson Organ transplant [address] [facility] candidate (Primary Dx) [place] [phone] Social History Tobacco Use Types Packs/Day Years [...] status documented in this encounter Care Teams Professional System Administrator Relationship Specialty Start Date End Date Toña Jones MD PCP - General Nephrology 11/25/11 01/01/14 Ingrid Santana RN Registered Nurse Transplant 02/10/12 10/01/15 documented as of this encounter
--- OUTSIDE RECORDS SUMMARY | 2022-04-07 11:14 | XMS_ITS | Encounter Summary ---
:1950 Author Organization [place] Address [facility] [place] [address] Care Team Providers Name Role Phone Toña [...] on filedocumented in this encounter Care Teams Instructor Substitute Cosmetology Relationship Specialty Start Date End Date Toña Jones MD PCP - General Nephrology 11/25/11 01/01/14 Momo Forbes PCP - General Family Practice 01/02/14 [facility] [address] [place] [address] Ingrid Santana, RN Registered Nurse Transplant 02/10/12 10/01/15 documented as of this encounter
--- OUTSIDE RECORDS SUMMARY | 2022-04-07 11:14 | XMS_ITS | Encounter Summary ---
:1950 Author Organization [place] Address [address] [place] [address] Care Team Providers Name Role Phone Toña Jones MD Primary Care Provider Ingrid Santana RN Unavailable Encounter Details Date Type Department Care Team Description 10/11/2012 Results Only LABORATORY RESULTS Barbara Bradley MD [address] [place], [place] [address] Social History Tobacco Use [...] HLA Lukasz Class II Single Antigen (10/11/2012) [facility] Method Time Signature SA2 Test Single [...] / Volume Laterality 10/11/2012 10/12/2012 1:03 PM CONSUMER INSIGHT MANAGER Barbara Bradley MD LAB - IMMUNOLOGY ORDERABLES Performing Organization Address City/State/ZIP Code Phon e Number [facility] Immunology/Histocompatabil [place], [place] [address] ity [facility] [address] Building, Room 3-580 HISTOTRAC documented in this encounter Visit Diagnoses Not on filedocumented in this encounter Care Teams Chip Bin Operator Relationship Specialty Start Date End Date Toña Jones MD PCP - General Nephrology 11/25/11 01/01/14 Ingrid Santana RN Registered Nurse Transplant 02/10/12 10/01/15 documented as of this encounter
--- OUTSIDE RECORDS SUMMARY | 2022-04-07 11:14 | XMS_ITS | Encounter Summary ---
:1950 Author Organization [place] Address [address] [place] [address] Care Team Providers Name Role Phone Ingrid Santana RN Unavailable Momo Forbes Primary Care Provider Reason for Visit Reason Onset Date Comments Pre Visit Planning - Done 01/30/2014 EKG: pre op: [age] yo M, here for continued clearance for possib le kidney txp. Encounter Details Date Type Department Care Team Description 01/30/2014 PRE VISIT [facility] Barbara Bradley Pre Visit Planning - Physicians Orestes Licona MD Done (EKG: pre op: 63 [address] [place], [place] [address] continued clearance 4th Floor, Clinic 4B for possible kidney [facility] 88 txp.) [address] [place] [phone] Social History Tobacco Use Types Packs/Day Years [...] encounter Miscellaneous Notes Telephone Encounter - Opal aMncini - 01/30/2014 10:10 AM CDT HPI: Diego is a 63 year old patient with history of DM, HTN, Hyperlipidemia, 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 DM for 12 years . On insulin for 4 years. ESRD 1 year. On HD since Aug 2011. No past AR, stress tests or coronary angiogorams. No chest [...] disease documented in this encounter Care Teams Occupational Psychologist Relationship Specialty Start Date End Date Momo Forbes PCP - General Family Practice 01/02/14 [facility] [address] [place] [address] Ingrid Santana, RN Registered Nurse Transplant 02/10/12 10/01/15 documented as of this encounter
--- OUTSIDE RECORDS SUMMARY | 2022-04-07 11:14 | XMS_ITS | Encounter Summary ---
:1950 Author Organization [place] Address [address] [place] [address] Care Team Providers Name Role Phone Ingrid Santana RN Unavailable Momo Forbes Primary Care Provider Encounter Details Date Type Department Care Team Description 01/20/[address] [facility], [facility], [facility] [place] [address] [phone] [place] [address] [address] [place] [address] (Wo rk) Social History Tobacco [...] Signature Tacrolimus Last 02/14/2014 [facility] Dose 2030 [facility] Tacrolimus 5.9 5.0 - [facility] Level 15.0 ug/L [facility] Comment: Tacrolimus Reference Range Kidney Transplant [...] Code Phon e Number [facility] [address] [place] [address] [facility] documented in this encounter Visit Diagnoses Not on filedocumented in this encounter Care Teams Switchboard Mechanic Relationship Specialty Start Date End Date Momo Forbes PCP - General Family Practice 01/02/14 [facility] [address] [place] [phone] Ingrid Santana, RN Registered Nurse Transplant 02/10/12 documented as of this encounter
--- OUTSIDE RECORDS SUMMARY | 2022-04-07 11:14 | XMS_ITS | Encounter Summary ---
:1950 Author Organization [place] Address [address] [place] [address] Care Team Providers Name Role Phone Toña Jones MD Primary Care Provider Ingrid Santana RN Unavailable Encounter Details Date Type Department Care Team Description 01/17/2013 Results Only LABORATORY RESULTS Barbara Bradley MD [address] [place], [place] [address] Social History Tobacco Use [...] HLA Lukasz Class II Single Antigen (01/17/2013) [facility] Method Time Signature SA2 Test Single Antigen [...] Phon e Number [facility] Immunology/Histocompatabil [place], [place] [address] ity [facility] [address] Building, Room [address]-580 HISTOTRAC documented in this encounter Visit Diagnoses Not on filedocumented in this encounter Care Teams Wan Support Specialist Relationship Specialty Start Date End Date Toña Jones MD PCP - General Nephrology 11/25/11 01/01/14 Ingrid Santana RN Registered Nurse Transplant 02/10/12 10/01/15 documented as of this encounter
--- OUTSIDE RECORDS SUMMARY | 2022-04-07 11:14 | XMS_ITS | Encounter Summary ---
:1950 Author Organization [place] Address [facility] [place] [address] Care Team Providers Name Role Phone Toña [...] on filedocumented in this encounter Care Teams Machine Skiver Relationship Specialty Start Date End Date Toña Jones MD PCP - General Nephrology 11/25/11 01/01/14 Momo Forbes PCP - General Family Practice 01/02/14 [facility] [address] [place] [address] Ingrid Santana, RN Registered Nurse Transplant 02/10/12 10/01/15 documented as of this encounter
--- OUTSIDE RECORDS SUMMARY | 2022-04-07 11:14 | XMS_ITS | Encounter Summary ---
:1950 Author Organization [place] Address [facility] [place] [address] Care Team Providers Name Role Phone Toña [...] HLA Lukasz Class II Single Antigen (04/16/2013) [facility] gist Method Time Signature SA2 Test Single [...] Phon e Number [facility] Immunology/Histocompatabil [place], [place] [address] [facility] [address] Building, Room 3-580 HISTOTRAC documented in this encounter Visit Diagnoses Not on filedocumented in this encounter Care Teams Ror Engineer Relationship Specialty Start Date End Date Toña Jones MD PCP - General Nephrology 11/25/11 01/01/14 Ingrid Santana RN Registered Nurse Transplant 02/10/12 10/01/15 documented as of this encounter
--- OUTSIDE RECORDS SUMMARY | 2022-04-07 11:14 | XMS_ITS | Encounter Summary ---
:1950 Author Organization [place] Address [address] [place] [address] Care Team Providers Name Role Phone Ingrid Santana RN Unavailable Momo Forbes Primary Care Provider Encounter Details Date Type Department Care Team Description 01/21/2014 Results Only LABORATORY RESULTS Mingo Dangelo MD [address] [facility] [address] [place] [address] (Wo rk) Social History Tobacco [...] HLA Lukasz Class II Single Antigen (01/21/2014) [facility] Method Time Signature SA2 Test SA [...] Phon e Number [facility] Immunology/Histocompatabil [place], [place] [address] ity [facility]alth [facility] [address] Building, Room [address]-580 HISTOTRAC documented in this encounter Visit Diagnoses Not on filedocumented in this encounter Care Teams Export Agent Relationship Specialty Start Date End Date Momo Forbes PCP - General Family Practice 01/02/14 [facility] [address] [place] [address] Ingrid Santana, RN Registered Nurse Transplant 02/10/12 10/01/15 documented as of this encounter
--- OUTSIDE RECORDS SUMMARY | 2022-04-07 11:14 | XMS_ITS | Encounter Summary ---
:1950 Author Organization [place] Address [address] [place] [address] Care Team Providers Name Role Phone Toña Jones MD Primary Care Provider Ingrid Santana RN Unavailable Encounter Details Date Type Department Care Team Description 11/05/2013 Results Only LABORATORY RESULTS Barbara Bradley MD [address] [place], [place] [address] Social History Tobacco Use [...] I Single Antigen (11/05/2013 7:20 AM CDT) [facility] Method Time Signature SA1 Test SA [...] Phon e Number [facility] Immunology/Histocompatabil [place], [place] [address] ity [facility] [address] [facility] [address] Building, Room [address]-580 HISTOTRAC documented in this encounter Visit Diagnoses Not on filedocumented in this encounter Care Teams Biofuels Plant Manager Relationship Specialty Start Date End Date Toña Jones MD PCP - General Nephrology 11/25/11 01/01/14 Ingrid Santana, RN Registered Nurse Transplant 02/10/12 10/01/15 documented as of this encounter
--- OUTSIDE RECORDS SUMMARY | 2022-04-07 11:14 | XMS_ITS | Encounter Summary ---
:1950 Author Organization [place] Address [facility] [place] [address] Care Team Providers Name Role Phone Toña [...] (madeleine betes mellitus), type 2 (H) Building [address] [place] [phone] Social History Tobacco Use Types Packs/Day Years [...] uncontrolled documented in this encounter Care Teams International Sourcing Manager Relationship Specialty Start Date End Date Toña Jones MD PCP - General Nephrology 11/25/11 01/01/14 Ingrid Santana RN Registered Nurse Transplant 02/10/12 10/01/15 documented as of this encounter
--- OUTSIDE RECORDS SUMMARY | 2022-04-07 11:14 | XMS_ITS | Encounter Summary ---
:1950 Author Organization [place] Address [facility] [place] [address] Care Team Providers Name Role Phone Toña Jones MD Primary Care Provider Ingrid Santana RN Unavailable Reason for Visit Reason Onset Date Comments Transplant 12/19/2013 Kidney waitlist appo intments Encounter Details Date Type Department Care Team Description 12/19/2013 Telephone The Transplant Edda Nash, Provider Transplant (Kidney 2nd Floor, Clinic 2A waitlist appointments) Tommy [address] [phone] Social History Tobacco Use Types Packs/Day Years [...] filedocumented in this encounter Care Teams Solar Tech Relationship Specialty Start Date End Date Toña Jones MD PCP - General Nephrology 11/25/11 01/01/14 Ingrid Santana, RN Registered Nurse Transplant 02/10/12 10/01/15 documented as of this encounter
--- OUTSIDE RECORDS SUMMARY | 2022-04-07 11:14 | XMS_ITS | Encounter Summary ---
:1950 Author Organization [place] Address [facility] [place] [address] Care Team Providers Name Role Phone Toña Jones MD Primary Care Provider Ingrid Santana RN Unavailable Encounter Details Date Type Department Care Team Description 12/10/2013 Telephone Transplant Surgery C Nazia Bledsoe LPN 2nd Floor, Clinic [address] [place] [address] [phone] Social History Tobacco Use Types Packs/Day [...] filedocumented in this encounter Care Teams Manager Product Design Relationship Specialty Start Date End Date Toña Jones MD PCP - General Nephrology 11/25/11 Ingrid Santana, RN Registered Nurse Transplant 02/10/12 documented as of this encounter
--- OUTSIDE RECORDS SUMMARY | 2022-04-07 11:14 | XMS_ITS | Encounter Summary ---
:1950 Author Organization [place] Address [address] [place] [address] Care Team Providers Name Role Phone Toña Jones MD Primary Care Provider Ingrid Santana RN Unavailable Encounter Details Date Type Department Care Team Description 04/13/2012 Results Only LABORATORY RESULTS Mingo Dangelo MD [address] [facility] [address] [place] [address] (Wo rk) Social History Tobacco [...] HLA Lukasz Class I Single Antigen (04/13/2012) [facility] Method Time Signature SA1 Test Single [...] e Number [facility] Immunology/Histocompatabil [place], [place] [address] ity [facility] [address] Building, Room [address]-580 HISTOTRAC documented in this encounter Visit Diagnoses Not on filedocumented in this encounter Care Teams Spinner Tender Relationship Specialty Start Date End Date Toña Jones MD PCP - General Nephrology 11/25/11 01/01/14 Ingrid Santana RN Registered Nurse Transplant 02/10/12 10/01/15 documented as of this encounter
--- OUTSIDE RECORDS SUMMARY | 2022-04-07 11:14 | XMS_ITS | Encounter Summary ---
:1950 Author Organization [place] Address [facility] [place] [address] Care Team Providers Name Role Phone Toña [...] filedocumented in this encounter Care Teams Public Administration Professor Relationship Specialty Start Date End Date Toña Jones MD PCP - General Nephrology 11/25/11 01/01/14 Momo Forbes PCP - General Family Practice 01/02/14 [facility] [address] [place] [address] Ingrid Santana, RN Registered Nurse Transplant 02/10/12 10/01/15 documented as of this encounter
--- OUTSIDE RECORDS SUMMARY | 2022-04-07 11:14 | XMS_ITS | Encounter Summary ---
:1950 Author Organization [place] Address [facility] [place] [address] Care Team Providers Name Role Phone Toña [...] on filedocumented in this encounter Care Teams City Sanitarian Relationship Specialty Start Date End Date Toña Jones MD PCP - General Nephrology 11/25/11 01/01/14 Momo Forbes PCP - General Family Practice 01/02/14 [facility] [address] [place] [address] Ingrid Santana, RN Registered Nurse Transplant 02/10/12 10/01/15 documented as of this encounter
--- OUTSIDE RECORDS SUMMARY | 2022-04-07 11:14 | XMS_ITS | Encounter Summary ---
:1950 Author Organization [place] Address [address] [place] [address] Care Team Providers Name Role Phone Toña Jones MD Primary Care Provider Ingrid Santnaa RN Unavailable Encounter Details Date Type Department [...] HLA Lukasz Class I Single Antigen (04/16/2013) [facility] gist Method Time Signature SA1 Test Single [...] Phon e Number [facility] Immunology/Histocompatabil [place], [place] [address] [facility] [address] Building, Room [address]-580 HISTOTRAC documented in this encounter Visit Diagnoses Not on filedocumented in this encounter Care Teams Aquaculture Director Relationship Specialty Start Date End Date Toña Jones MD PCP - General Nephrology 11/25/11 01/01/14 Ingrid Santana RN Registered Nurse Transplant 02/10/12 10/01/15 documented as of this encounter
--- OUTSIDE RECORDS SUMMARY | 2022-04-07 11:14 | XMS_ITS | Encounter Summary ---
:1950 Author Organization [place] Address [address] [place] [address]. [place] [address] Care Team Providers Name Role Phone Toña [...] - HIM SCAN - 09/25/2012 8:26 AM DIRECTOR OF CONTENT MARKETING ARCHIVE documented in this encounter Results LAB RESULT - HIM SCAN - ARCHIVE (09/25/2012 8:26 AM DIRECTOR OF CONTENT MARKETING) Specimen (Source) Anatomical Location Collection Method / Collectio n Time Received Time / Laterality Volume Narrative This result has an attachment that is no t available. Marcela Cordero MD LAB - BLOOD ORDERABLES documented in this encounter Visit Diagnoses Not on filedocumented in this encounter Care Teams Four Slide Machine Operator Relationship Specialty Start Date End Date Toña Jones MD PCP - General Nephrology 11/25/11 01/01/14 Momo Forbes PCP - General Family Practice 01/02/14 [facility] [address] [place] [address] Ingrid Santana, RN Registered Nurse Transplant 02/10/12 10/01/15 documented as of this encounter
--- OUTSIDE RECORDS SUMMARY | 2022-04-07 11:14 | XMS_ITS | Encounter Summary ---
:1950 Author Organization [place] Address [address] [place] [address] Care Team Providers Name Role Phone Toña Jones MD Primary Care Provider Ingrid Santana RN Unavailable Encounter Details Date Type Department Care Team Description 04/13/2012 Results Only LABORATORY RESULTS Mingo Dangelo MD [address] [facility] [address] [place] [address] (Wo rk) Social History Tobacco [...] HLA Lukasz Class II Single Antigen (04/13/2012) [facility] Method Time Signature SA2 Test Single [...] Phon e Number UU HLA LABORATORY Immunology/Histocompatabil [place], [place] [address] ity [facility] C[facility] [address], Room 3-580 HISTOTRAC documented in this encounter Visit Diagnoses Not on filedocumented in this encounter Care Teams Athletic Field Custodian Relationship Specialty Start Date End Date Toña Jones MD PCP - General Nephrology 11/25/11 01/01/14 Ingrid Santana RN Registered Nurse Transplant 02/10/12 10/01/15 documented as of this encounter
--- OUTSIDE RECORDS SUMMARY | 2022-04-07 11:15 | XMS_ITS | Encounter Summary ---
:1950 Author Organization [place] Address [facility] [place] [address] Care Team Providers Name Role Phone Toña Jones MD Primary Care Provider Ingrid Santana RN Unavailable Reason for Visit Reason Comments Social Work Services Encounter Details Date Type Department Care Team Description 02/10/2012 Office Visit The Transplant Akanksha Stacy Organ transplant 2nd Floor, Clinic 2A SHALOM Zacarias candidate (Primary [facility] [address] [phone] Social History Tobacco Use Types Packs/Day Years [...] old Duration of Interview: 40 min Process: Pzvv-yd-Eyts Interview (counseling < 50%) Present at Appointment: Latrell, his brother Kiran and Latrell Zamora, Transplant Financial Argon TesterStraddle Truck Operator Worker: CECY Ortiz, [facility] Date: February 10, 2012 Type of transplant: Kidney Donor type: Latrell indicated that he does not know of any potential donors at this time. Cadaver Prior Transplants: No Status of Transplant: Current Living Situation Location: [address] [place] [phone] With Whom: Alone Family/ Social Support: Kiran lives in [place], [place]. Available, helpful Committed relationship: Latrell indicated [...] Income Savings Insurance Latrell has BC/BS through [employer] until 07/22/13. He has also applied for [...] that assist with fund raising. Discussed asking fruit harvest worker for assistance with cobra premiums and [...] No Adequate Finances Yes Signature: CECY Ortiz, [facility] Title: Clinical Representative Phlebotomy Services documented in this encounter Plan of Treatment Not on filedocumented as of this encounter Visit Diagnoses Diagnosis Organ transplant candidate - Primary Awaiting organ transplant status documented in this encounter Care Teams Rapier Insertion Loom Fixer Relationship Specialty Start Date End Date Toña Jones MD PCP - General Nephrology 11/25/11 01/01/14 Ingrid Santana RN Registered Nurse Transplant 02/10/12 10/01/15 documented as of this encounter
--- OUTSIDE RECORDS SUMMARY | 2022-04-07 11:15 | XMS_ITS | Encounter Summary ---
:1950 Author Organization [place] Address [address] [place] [address] Care Team Providers Name Role Phone Toña Jones MD Primary Care Provider Ingrid Santana RN Unavailable Encounter Details Date Type Department Care Team Description 02/08/2012 Results Only LABORATORY RESULTS Jeff Joshi MD [facility] [facility] [address] [place] [address] (Wo rk) Social History Tobacco [...] I Single Antigen (02/08/2012 7:07 AM CDT) [facility] Method Time Signature SA1 Test [...] Phon e Number UU HLA LABORATORY Immunology/Histocompatabil [place], [place] [address] ity [facility] [address] [facility] [address] Building, Room 3-580 HISTOTRAC documented in this encounter Visit Diagnoses Not on filedocumented in this encounter Care Teams Hand Candy Molder Relationship Specialty Start Date End Date Toña Jones MD PCP - General Nephrology 11/25/11 01/01/14 Ingrid Santana, RN Registered Nurse Transplant 02/10/12 10/01/15 documented as of this encounter
--- OUTSIDE RECORDS SUMMARY | 2022-04-07 11:15 | XMS_ITS | Encounter Summary ---
:1950 Author Organization [place] Address [address] [facility] [place] [address] Care Team Providers Name Role Phone Toña Jones MD Primary Care Provider Ingrid Santana RN Unavailable Encounter Details Date Type Department Care Team Description 02/15/2012 Hospital Encounter [facility] Barbara Bradley Unsstar ecified essential hypertension; [facility] Imaging MD Monae Pre-operative clearance [address] [place] [address] Social History Tobacco Use [...] tablet by mouth 0 02/18/2014 daily. B qypzygn-N-jnnst acid Take 1 capsule by mouth 0 [...] unspecified documented in this encounter Care Teams Float Nurse Relationship Specialty Start Date End Date Toña Jones MD PCP - General Nephrology 11/25/11 01/01/14 Ingrid Santana, BOGDAN Registered Nurse Transplant 02/10/12 10/01/15 documented as of this encounter
--- OUTSIDE RECORDS SUMMARY | 2022-04-07 11:15 | XMS_ITS | Encounter Summary ---
:1950 Author Organization [place] Address [facility] [place] [address] Care Team Providers Name Role Phone Toña Jones MD Primary Care Provider Blayne Santana RN Unavailable Reason for Visit Reason Comments Transplant Evaluation Encounter Details Date Type Department Care Team Description 02/08/2012 Office Visit Transplant Surgery Jesus Cardenas, DM (di abetes mellitus), type 2 (H); Clinic End stage renal disease (H) 2nd Floor, Clinic [address] [phone] Social History Tobacco Use Types Packs/Day Years [...] from the original note were not included. 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 B tkdowix-C-fjyqs acid (NEPHROCAPS) 1 MG capsule Take 1 [...] Test 02/08/12 0725 INR 1.11 F2MAR -- [id number] -- Lipid Profile: Cholesterol Date Value Range [...] 09, 2012 3:21 PM Pre Abdominal Organ Riverboat Master Evaluation Note: present: Dr. Jesus Cardenas Attendees: self Type of transplant: kidney Required Topic(s) Discussed: Evaluation notification document, SRTR data, Multiple wait list brochure, SURVEILLANCE SENSOR OFFICER, Evaluation/approval process, Selection committee process, Wait list [...] spent with patient: 15 minutes -- Nurse Riverboat Master Pager [phone] BLAYNE SANTANA -- Nurse Riverboat Master Pager [phone] >> Lena Sánchez RN Tue Feb 08, [...] disease documented in this encounter Care Teams Conductor/Brakeman Relationship Specialty Start Date End Date Toña Jones MD PCP - General Nephrology 11/25/11 01/01/14 Blayne Santana, RN Registered Nurse Transplant 02/10/12 10/01/15 documented as of this encounter
--- OUTSIDE RECORDS SUMMARY | 2022-04-07 11:15 | XMS_ITS | Encounter Summary ---
:1950 Author Organization [place] Address [facility] [place] [address] Care Team Providers Name Role Phone Toña Jones MD Primary Care Provider Ingrid Santana RN Unavailable Reason for Visit Reason Comments Transplant Evaluation Kidney transplant evaluation - chronic kidney disease Encounter Details Date Type Department Care Team Description 02/10/2012 Office Visit The Transplant Edda Cardenas, Ty Blink, DM (diabetes 2nd Floor, Clinic 2A MD mellitus), type 2 (H) Tommy Wilburn (Primar y Dx) [address] [phone] Social History Tobacco Use Types [...] this time. Patient to follow up with move coordinator. documented in this encounter Plan of Treatment Not on filedocumented as of this encounter Visit Diagnoses Diagnosis DM (diabetes mellitus), type 2 (H) - Ana ashley Type II or unspecified type diabetes aung litus without mention of complication, not stated as uncontrolled documented in this encounter Care Teams Ice Cream Vendor Relationship Specialty Start Date End Date Toña Jones MD PCP - General Nephrology 11/25/11 01/01/14 Ingrid Santana RN Registered Nurse Transplant 02/10/12 10/01/15 documented as of this encounter
--- OUTSIDE RECORDS SUMMARY | 2022-04-07 11:15 | XMS_ITS | Encounter Summary ---
:1950 Author Organization [place] Address [facility] [place] [address] Care Team Providers Name Role Phone Toña Jones MD Primary Care Provider Reason for Visit Reason Onset Date Comments Patient Reminder 02/01/2012 Encounter Details Date Type Department Care Team Description 02/01/2012 PRE VISIT Nephrology Joseph Quintana, Patient Reminder 2nd Floor, Clinic 2A MD Tomym Guillermo[address]6 [place], [place] [address] [place] [address] (Wo rk) [phone] Social History Tobacco Use Types Packs/Day Years [...] on filedocumented in this encounter Care Teams Vessel Master Relationship Specialty Start Date End Date Toña Jones MD PCP - General Nephrology 11/25/11 01/01/14 documented as of this encounter
--- OUTSIDE RECORDS SUMMARY | 2022-04-07 11:15 | XMS_ITS | Encounter Summary ---
:1950 Author Organization [place] Address [address] [facility] [place] [address] Care Team Providers Name Role Phone Toña Jones MD Primary Care Provider Ingrid Santana RN Unavailable Encounter Details Date Type Department Care Team Description 02/10/2012 Hospital Encounter [facility] Jesus Cardenas MD Nutrition Services Martina Harley, RD [address] [facility] 84 [place] [address] 420 [facility] Joseph Quintana MD [address] [facility] 353 [facility] [address] [place] [address] 84 [place] [address] Social History Tobacco Use Types Packs/Day Years [...] tablet by mouth 0 02/18/2014 daily. B xymydey-Q-nubxm acid Take 1 capsule by mouth 0 [...] Mcneill, RD - 02/10/2012 8:47 AM CDT [facility] Medical Nutrition Therapy Visit Type: [...] on filedocumented in this encounter Care Teams Geodetic Computator Relationship Specialty Start Date End Date Toña Jones MD PCP - General Nephrology 11/25/11 01/01/14 Ingrid Santana RN Registered Nurse Transplant 02/10/12 10/01/15 documented as of this encounter
--- OUTSIDE RECORDS SUMMARY | 2022-04-07 11:15 | XMS_ITS | Encounter Summary ---
:1950 Author Organization [place] Address [facility] [address] Care Team Providers Name Role Phone Toña Jones MD Primary Care Provider Ingrid Santana RN Unavailable Encounter Details Date Type Department Care Team Description 12/07/2011 Orders Only Nephrology Chucho Joshi MD Dialysis patient (H) 2nd Floor, Clinic 2A [address] RANJAN (Primary Dx) Tommy Ruiz[address] [place] [address] [place], [place] [phone] (Wo rk) [address] [phone] Social History Tobacco Use Types Packs/Day Years Used Date Never Assessed Sex Assigned at Date Recorded Not on file documented as of this encounter Plan of Treatment Not on filedocumented as of this encounter Visit Diagnoses Diagnosis Dialysis patient (H) - Primary Renal dialysis status documented in this encounter Care Teams Radio Reporter Relationship Specialty Start Date End Date Toña Jones MD PCP - General Nephrology 11/25/11 01/01/14 Ingrid Santana, RN Registered Nurse Transplant 02/10/12 10/01/15 documented as of this encounter
--- OUTSIDE RECORDS SUMMARY | 2022-04-07 11:15 | XMS_ITS | Encounter Summary ---
:1950 Author Organization [place] Address [address] [place] [address] Care Team Providers Name Role Phone Toña Jones MD Primary Care Provider Encounter Details Date Type Department Care Team Description 02/08/2012 Orders Only [facility] Thomas, Ty Blink, End sta ge kidney Pulmonary Function disease ( H) (Primary Laboratory Dx) 6th Floor 500 [place] [address] Social History Tobacco Use Types [...] Lab Testing (Generic) (02/08/2012 8:35 AM CDT) [facility] Method Time Signature Pulmonary COPATH Function Test Name: ? ELINOR GUTHRIE ? ID: ?[id number] Doctor: ?JESUS THOMAS ?Height: ?72.00 in ? [...] INTERPRETATION: The FVC, FEV1, FEV1/FVC ratio and XJV13-69% are within normal limits. ??The inspiratory flow [...] disease documented in this encounter Care Teams Mobile Tester Relationship Specialty Start Date End Date Toña Jones MD PCP - General Nephrology 11/25/11 01/01/14 documented as of this encounter
--- OUTSIDE RECORDS SUMMARY | 2022-04-07 11:15 | XMS_ITS | Encounter Summary ---
:1950 Author Organization [place] Address [address] [place] [address] Care Team Providers Name Role Phone Toña Jones MD Primary Care Provider Ingrid Santana RN Unavailable Encounter Details Date Type Department Care Team Description 02/08/2012 Orders Only [facility] Jesus Cardenas Di abetes mellitus, type 2 (H); [facility] Gordo oneal MD End stage renal disease (H); [address] [place] [address] Social History Tobacco Use Types Packs/Day Years [...] Results ABO type (02/08/2012 1:52 PM CDT) [facility] revoPT Method Time Signature ABO A [facility] RH(D) Pos [facility] Specimen 02/11/2012 [facility] Spec[facility] Anatomical Collection Method Collection Time Receive d Time (Source) Location / / Volume Laterality Blood specimen 02/08/2012 1:52 PM 012 1:54 (specimen) CDT PM CDT Chucho Joshi MD LAB - BLOOD BANK TEST ORDER Performing Organization Address City/[facility]/ZIP Code Phon e Number [address] LABS EKG 12-lead, tracing only (02/08/2012 7:30 AM CDT) [facility] revoPT Method Time Signature Ventricular Rate 60 BPM RADIOLOGY RESULTS Atrial Rate 60 BPM RADIOLOGY RESULTS SD Interval 186 ms RADIOLOGY RESULTS QRS Duration 104 ms RADIOLOGY RESULTS QT 440 ms RADIOLOGY RESULTS QTc 440 ms RADIOLOGY RESULTS P [place] 36 degrees RADIOLOGY RESULTS R AXIS 0 degrees RADIOLOGY RESULTS T [place] 36 degrees RADIOLOGY RESULTS Interpretation Sinus rhythm [...] DEFINED documented in this encounter Care Teams Payment Rep Relationship Specialty Start Date End Date Toña Jones MD PCP - General Nephrology 11/25/11 01/01/14 Ingrid Santana, RN Registered Nurse Transplant 02/10/12 10/01/15 documented as of this encounter
--- OUTSIDE RECORDS SUMMARY | 2022-04-07 11:15 | XMS_ITS | Encounter Summary ---
:1950 Author Organization [place] Address [address] [place] [address]. [place] [address] Care Team Providers Name Role Phone Toña [...] filedocumented in this encounter Care Teams Metal Model Maker Relationship Specialty Start Date End Date Toña Jones MD PCP - General Nephrology 11/25/11 01/01/14 Momo Forbes PCP - General Family Practice 01/02/[address] [address] Ingrid Santana, RN Registered Nurse Transplant 02/10/12 10/01/15 documented as of this encounter
--- OUTSIDE RECORDS SUMMARY | 2022-04-07 11:15 | XMS_ITS | Encounter Summary ---
:1950 Author Organization [place] Address [address] [place] [address] Care Team Providers Name Role Phone Toña Jones MD Primary Care Provider Ingrid Santana RN Unavailable Encounter Details Date Type Department Care Team Description 02/08/2012 Results Only LABORATORY RESULTS Jeff Joshi MD [facility] [place] [address] (Wo rk) Social History Tobacco [...] II Single Antigen (02/08/2012 7:07 AM CDT) [facility] Method Time Signature SA2 Test Single [...] Phon e Number UU HLA LABORATORY Immunology/Histocompatabil [place], [place] [address] ity [facility] [address] [facility] [address] Building, Room 3-580 HISTOTRAC documented in this encounter Visit Diagnoses Not on filedocumented in this encounter Care Teams Enterprise Services Manager Relationship Specialty Start Date End Date Toña Jones MD PCP - General Nephrology 11/25/11 01/01/14 Ingrid Santana RN Registered Nurse Transplant 02/10/12 10/01/15 documented as of this encounter
--- OUTSIDE RECORDS SUMMARY | 2022-04-07 11:15 | XMS_ITS | Encounter Summary ---
:1950 Author Organization [place] Address [facility] [place] [address] Care Team Providers Name Role Phone Toña Jones MD Primary Care Provider Ingrid Santana RN Unavailable Reason for Visit Reason Comments Heart Problem Consult prior to kidney proctor splant, needs EKG please. Encounter Details Date Type Department Care Team Description 02/10/2012 Office Visit [facility] Barbara Bradley Unspecified es sential hypertension; [facility] Chance Licona Pre-operative clearance Heart [address] [place] [address] [facility] [phone] 4th Floor, Clinic 4B (Work) [address] [address] Social History Tobacco Use Types [...] Stay Well and Call Maribel Nicole RN [phone] with any questions or concerns. You are scheduled for an Adenosine Stress Test 02/15/2012: Please check into the [facility] Waiting Room at 12:15pm for this test. [...] and you need to reschedule, please call [phone]. January 2012Tuesday 1 2 3 4 5 6 7 8 9 10 11 12 13 14 15 16 17 18 19 [facility] NEW 6:30 AM (30 min.) Evaluation, [facility] The Transplant Center [facility] FULL PULMONARY FUNCTION 8:00 AM (60 min.) 2, [facility] [place] Pulmonary Function Laboratory RADIOLOGY 8:05 AM (10 min.) Uicxr2 [facility] Diagnostic Imaging [facility] PREP KIDNEY/PANCREAS TX 9:00 AM (120 min.) Angela Lopez, [facility], [place], [facility] TRANSPLANT CLASS KIDNEY 9:00 AM (90 min.) Class, [facility] Transplant [facility] Transplant [facility] JEWELRY INSPECTOR 11:00 AM (30 min.) Coordinator, [facility] Care [facility] Transplant [facility] PRE-TX KIDNEY EVAL 11:00 AM (30 min.) Donya Thomas MD Transplant Surgery LAB 11:30 AM (15 min.) Queenieb, Op Lab [facility], Lab RADIOLOGY 1:30 PM (55 min.) Uecvc1 [facility], Echocardiography 20 21 [facility] RETURN 7:00 AM (15 min.) Evaluation, [facility] The Transplant Center RADIOLOGY 7:00 AM (60 min.) Uicusr2 [facility] Diagnostic Imaging CONSULT HOD 8:00 AM (60 min.) Mart[address] [facility], Nutrition Services [facility] TX SOCIAL WORK 9:00 AM (60 min.) 2, [facility] Consult Room The Transplant Center [facility] PRE-TX KIDNEY EVAL 10:00 AM (60 min.) Joseph Quintana MD Nephrology [facility] PANCREAS-KIDNEY TX W/U 11:30 AM (30 min.) Barbara Bradley MD [facility] Physicians Heart 22 23 24 25 26 RADIOLOGY 12:30 PM (15 min.) Uninj [facility], Nuclear Medicine RADIOLOGY 1:15 PM (20 min.) Unr1 [facility], Nuclear Medicine RADIOLOGY 1:40 PM (30 min.) [facility] ELECTROCARDIOLOGY RADIOLOGY 3:10 PM (20 min.) Unr1 [facility], Nuclear Medicine 27 28 29 20 March [...] On HD since Aug 2011. No past MT, stress tests or coronary angiogorams. No chest [...] 1 tablet by mouth daily. ??? 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 Divisions of Cardiology [facility] Patient Care Team: Toña Jones MD as PCP - General (Nephrology) Ingrid Santana RN as Registered Nurse (Transplant) DONYA THOMAS documented in this encounter Plan of Treatment Not on filedocumented as of this encounter Visit Diagnoses Diagnosis Unspecified essential hypertension Pre-operative clearance Preoperative examination, unspecified documented in this encounter Care Teams Digital Marketing Executive Relationship Specialty Start Date End Date Toña Jones MD PCP - General Nephrology 11/25/11 01/01/14 Ingrid Santana RN Registered Nurse Transplant 02/10/12 10/01/15 documented as of this encounter
--- OUTSIDE RECORDS SUMMARY | 2022-04-07 11:15 | XMS_ITS | Encounter Summary ---
:1950 Author Organization [place] Address [address] [place] [address] Care Team Providers Name Role Phone Toña Jones MD Primary Care Provider Ingrid Santana RN Unavailable Encounter Details Date Type Department Care Team Description 02/08/2012 Results Only LABORATORY RESULTS Jeff Joshi MD [facility] [facility] [place] [address] (Wo rk) Social History Tobacco [...] Phon e Number UU HLA LABORATORY Immunology/Histocompatabil [place], [place] [address] ity [facility] C[facility] [address], Room 3-580 HISTOTRAC documented in this encounter Visit Diagnoses Not on filedocumented in this encounter Care Teams Government Gauger Relationship Specialty Start Date End Date Toña Jones MD PCP - General Nephrology 11/25/11 01/01/14 Ingrid Santana RN Registered Nurse Transplant 02/10/12 10/01/15 documented as of this encounter
--- OUTSIDE RECORDS SUMMARY | 2022-04-07 11:15 | XMS_ITS | Encounter Summary ---
:1950 Author Organization [place] Address [address] [place] [address] Care Team Providers Name Role Phone Toña Jones MD Primary Care Provider Ingrid Santana RN Unavailable Reason for Visit (Routine) - Closed Specialty Diagnoses / Procedures Referred By Contact Refer red To Contact Radiology Diagnoses [facility] Procedure Notes: UNSPECIFIED ESSENTIAL HYPERTENSION,PREOPERATIVE EXAMINATION, UNSPECIFIED, [facility] Nuclear Medicine Procedures RADIOLOGY [address] [place] [address] Phone: Referral ID Status Reason Start Date Expiration Date Visits Requ ested Visits Authorized [id number] Closed 02/11/2012 02/10/2013 1 1 Encounter Details Date Type Department Care Team Description 02/15/2012 Hospital Encounter [facility] Barbara Bradley Imaging MD Monae [address] [facility] [address] [place], [place] [address] [phone] Social History Tobacco Use Types Packs/Day Years [...] tablet by mouth 0 02/18/2014 daily. B vsrsefn-C-ssplg acid Take 1 capsule by mouth 0 [...] filedocumented in this encounter Care Teams Check Grader Relationship Specialty Start Date End Date Toña Jones MD PCP - General Nephrology 11/25/11 01/01/14 Ingrid Santana RN Registered Nurse Transplant 02/10/12 10/01/15 documented as of this encounter
--- OUTSIDE RECORDS SUMMARY | 2022-04-07 11:15 | XMS_ITS | Encounter Summary ---
:1950 Author Organization [facility] Address [facility] [place] [address] Care Team Providers Name Role Phone Toña Jones MD Primary Care Provider Ingrid Santana RN Unavailable Reason for Visit (Routine) - Closed Specialty Diagnoses / Procedures Referred By Contact Refer red To Contact Cardiology Diagnoses NM STRESS [place]ISC[place] Procedure Notes: UNSPECIFIED ESSENTIAL HYPERTENSION,PREOPERATIVE EXAMINATION, UNSPECIFIED, Zz Uu Electrocard Procedures RADIOLOGY [address] [place] [address] Referral ID Status Reason Start Date Expiration Date Visits Requ ested Visits Authorized [id number] Closed 02/11/2012 02/10/2013 1 1 Encounter Details Date Type Department Care Team Description 02/15/2012 Hospital Encounter ZSarah UU ELECTROCARD [place], [place] [address] [facility] [place] [address] [address] [place], [place] [address] Social History Tobacco Use [...] tablet by mouth 0 02/18/2014 daily. B ltzblwg-W-zxgwy acid Take 1 capsule by mouth 0 [...] Test documented in this encounter Care Teams Labor Relations Officer Relationship Specialty Start Date End Date Toña Jones MD PCP - General Nephrology 11/25/11 01/01/14 Ingrid Santana RN Registered Nurse Transplant 02/10/12 10/01/15 documented as of this encounter
--- OUTSIDE RECORDS SUMMARY | 2022-04-07 11:15 | XMS_ITS | Encounter Summary ---
:1950 Author Organization [place] Address [facility], [facility] [place] [address] Care Team Providers Name Role Phone Toña Jones MD Primary Care Provider Ingrid Santana RN Unavailable Reason for Visit Reason Comments Transplant Evaluation kidney Encounter Details Date Type Department Care Team Description 02/10/2012 Office Visit Nephrology Darian Joshi MD [address] [place] [address] [phone] Pre-transplant 2nd Floor, Clinic 2A Joseph Quintana MD [address] [facility] [address] [facility] [address] [place] [address] evaluation for Tommy Wilburn chronic kidney Building disease (Primary Dx) [address] [place] [address] Social History Tobacco Use Types [...] a diuretic. Will follow up with Dr. aMrtini. Discussed the risks and benefits of a [...] Dialysis Type: Incenter HD; and Dialysis unit: [facility] Primary Hydro Electric Station Operator: Dr. 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 Yes Reported, Patient B codexsw-T-nofaw acid (NEPHROCAPS) 1 MG capsule Take 1 [...] NEG Ketones Urine Negative NEG (mg/dL) Specific [place] Urine 1.010 1.003 - 1.035 Blood Urine [...] Report Value: Patient Name: ELINOR GUTHRIE MR#: [id number] Specimen #: [id number] Collected: 02/08/2012 07:07 Received: 02/08/2012 09:00 Reported: 02/11/2012 14:03 Ordering Phy(s): DARIAN JOSHI TEST(S) REQUESTED: A: Factor 5 Leiden and Factor 2 by PCR B: DNA Isolation, High purity extraction SPECIMEN DESCRIPTION: Blood METHODOLOGY: The regions of genomic DNA containing the [id number] Factor 5 gene mutation (Factor V Leiden) and the Factor 2(Prothrombin [id number]) gene mutation were simultaneously amplified using the polymerase chain reaction. The amplified products were digested with restriction endonuclease TaqI and products were analyzed by gel electrophoresis. RESULTS: FACTOR 5-LEIDEN RESULTS: Mutation analyzed: 1691G>A Factor 5 Mutation Interpretation: ABSENT Factor 5 Mutation genotype: G/G FACTOR 2/PROTHROMBIN RESULTS: Mutation analyzed: 94200K>A Factor 2 Mutation Interpretation: ABSENT Factor 2 Mutation genotype: G/G INTERPRETATION: The patient is negative for the Factor 5 mutation and negative for the Factor 2 mutation. This test was developed and its performance determined by the [facility]. It has not been cleared or approved by the U.S. Food and Drug Administration. The FDA has determined that such clearance or approval is not necessary. Pursuant to the requirements of CLIA'88, this laboratory has established and verified the test's accuracy and precision. This test is used for clinical purposes. Electronically Signed Out By: Liliya Stone MD TESTING LAB LOCATION: [address] [address] COLLECTION SITE: Client: [facility] Location: [facility]) HLA LUKASZ CLASS I SINGLE ANTIGEN [...] of an antiphospholipid syndrome, recommend anticardiolipin and ovnc-7-ihniteabxbly (IgG and IgM) antibody tests. Dee Duenas M.D. [phone] 02-09-2012. APTT'S: Seconds Reagent = Stago LS [...] Range Ventricular Rate 60 Atrial Rate 60 PA Interval 186 QRS Duration 104 QT 440 QTc 440 P [place] 36 R AXIS 0 T [place] 36 Interpretation ECG Sinus rhythm Interpretation ECG [...] Function Test Value: Name: ELINOR GUTHRIE ID: [id number] Doctor: DONYA THOMAS Height: 72.00 in Age: [...] INTERPRETATION: The FVC, FEV1, FEV1/FVC ratio and AUV50-98% are within normal limits. The inspiratory flow [...] 02/10/2012 10:00 AM CDT >> AUSTEN FAUSTIN [facility] Feb 10, 2012 9:54 AM Took igor cc, reviewed meds and allergies documented in this encounter Plan of Treatment Not on filedocumented as of this encounter Visit Diagnoses Diagnosis Pre-transplant evaluation for chronic ki dney disease - Primary Other specified pre-operative examinatio n documented in this encounter Care Teams Folder Machine Operator Relationship Specialty Start Date End Date Toña Jones MD PCP - General Nephrology 11/25/11 01/01/14 Ingrid Santana RN Registered Nurse Transplant 02/10/12 10/01/15 documented as of this encounter
--- OUTSIDE RECORDS SUMMARY | 2022-04-07 11:15 | XMS_ITS | Encounter Summary ---
:1950 Author Organization [place] Address [address] [facility] [place] [address] Care Team Providers Name Role Phone Toña Jones MD Primary Care Provider Encounter Details Date Type Department Care Team Description 02/08/2012 Hospital Encounter [facility] Jesus Cardenas MD Patient Learning Bobby Angela Leon, BOGDAN [address] [facility] [address] [place], [place] [id number] [address] [place] [address] Social History Tobacco Use Types Packs/Day Years [...] tablet by mouth 0 02/18/2014 daily. B fveyxaf-A-uaegm acid Take 1 capsule by mouth 0 [...] filedocumented in this encounter Care Teams Youth Officer Relationship Specialty Start Date End Date Toña Jones MD PCP - General Nephrology 11/25/11 01/01/14 documented as of this encounter
--- OUTSIDE RECORDS SUMMARY | 2022-04-07 11:15 | XMS_ITS | Encounter Summary ---
:1950 Author Organization [place] Address [facility] 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 [...] Phon e Number [facility] [address] [place], [place] [phone] [place] [address] [facility] Antibody titer red cell (02/08/2012 7:26 AM CDT) [facility] Method Time Signature Antibody Titer Anti B [facility] titer IgM: [place] 4 Ig CAMPUS LABS Specimen Anatomical Collection Method Collection Time Receive d Time (Source) Location / / Volume Laterality Blood specimen 02/08/2012 7:26 AM 012 7:31 (specimen) CDT AM CDT Darian Joshi MD LAB - BLOOD BANK TEST ORDER Performing Organization Address City/State/ZIP Code Phon e Number [facility] [address] LABS Prostate spec antigen screen (02/08/2012 7:25 AM CDT) P athologist Signature PSA 0.44 0 - 4 ug/L [facility] LABS Comment: PSA results are about 7% [...] Phon e Number [facility] [address] LABS Hemoglobin A1c (02/08/2012 7:25 AM CDT) P athologist Signature Hemoglobin A1C 5.3 4.3 - 6.0 [facility] [place] [facility] Specimen Anatomical Collection Method Collection Time Receive d Time (Source) Location / / Volume Laterality Blood specimen 02/08/2012 7:25 AM 012 7:30 (specimen) CDT AM CDT Darian Joshi MD LAB - BLOOD ORDERABLES Performing Organization Address City/State/ZIP Code Phon e Number [facility] [address] [place], [place] [phone] [place] [address] LABS C-peptide (02/08/2012 7:25 AM CDT) athologist Signature C Peptide 5.3 0.9 - 6.9 [facility] ng/mL [place] LABS Specimen Anatomical Collection Method Collection Time Receive d Time (Source) Location / / Volume Laterality Blood specimen 02/08/2012 7:25 AM 012 7:30 (specimen) CDT AM CDT Darian Joshi MD LAB - BLOOD ORDERABLES Performing Organization Address City/State/ZIP Code Phon e Number [address] LABS Cardiolipin antibody IgG and IgM (02/08/2012 7:25 AM CDT) [facility] Method Time Signature Cardiolipin IgG <15.0 0 - 15.0 [facility] Shaye Interpretation: ??Negative GPL [facility] LABS Cardiolipin IgM <12.5 0 - 12.5 [facility] Shaye Interpretation: ??Negative [facility] LABS Specimen Anatomical Collection Method Collection Time Receive d Time (Source) Location / / Volume Laterality Blood specimen 02/08/2012 7:25 AM 012 7:30 (specimen) CDT AM CDT Darian Joshi MD LAB - BLOOD ORDERABLES Performing Organization Address City/State/ZIP Code Phon e Number [phone] [place] [address] LABS (ABNORMAL) Comprehensive metabolic panel (02/08/2012 7:25 AM CDT) [facility] Method Time Signature Sodium 143 133 - 144 [facility] mmol/L [facility] Potassium 4.4 3.4 - 5.3 [facility] mmol/L [facility] Chloride 106 94 - 109 [facility] mmol/L [facility] Carbon Dioxide 24 20 - 32 [facility] mmol/L [facility] Anion Gap 13 6 - 17 [facility] mmol/L [facility] Glucose 126 (H) 60 - 99 [facility] mg/dL [facility] Urea Nitrogen 32 (H) 7 - 30 [facility] mg/dL [facility] Creatinine 5.46 (H) 0.66 - [facility] 1.25 [place] mg/dL CAMPUS LABS GFR Estimate 11 (L) >60 [facility] mL/min/[address]. [address] LABS GFR Estimate If 13 (L) >60 [facility] Black mL/min/1. [address] LABS Calcium 8.5 8.5 - [facility] 10.4 [facility] mg/dL [place] LABS Bilirubin Total 0.8 0.2 - 1.3 [facility] mg/dL [facility] Albumin 3.8 3.3 - 4.9 [facility] g/dL [facility] Protein Total 6.8 6.8 - 8.8 [facility] g/dL [facility] Alkaline 92 40 - 150 [facility] Phosphatase U/L [facility]S ALT 13 0 - 70 [facility] U/L [facility] AST 18 0 - 45 [facility] U/L [facility] Specimen Anatomical Collection Method Collection Time Receive d Time (Source) Location / / Volume Laterality Blood specimen 02/08/2012 7:25 AM 012 7:30 (specimen) CDT AM CDT Darian Joshi MD LAB - BLOOD ORDERABLES Performing Organization Address City/[facility]/ZIP Code Phon e Number [facility] [address] LABS Lipid Profile (02/08/2012 7:25 AM CDT) P athologist Signature Cholesterol 134 0 - 200 [facility] mg/dL [place] [facility] Comment: LDL Cholesterol is the primary guide to therapy. The NCEP recommends further evaluation of: patients with cholesterol greater than 200 mg/dL if additional risk facto rs are present, cholesterol greater than 240 mg/dL, triglycerides greater than 1 50 mg/dL, or HDL less than 40 mg/dL. Triglycerides 74 0 - 150 mg/dL [facility] LABS HDL Cholesterol 42 40 - 110 mg/dL [facility] LABS LDL Cholesterol Calculated 77 0 - 129 mg/dL [facility] LABS Comment: LDL Cholesterol is the primary guide to therapy: LDL-cholesterol goal in high risk patients is <100 mg/dL and in very high risk patients is <70 mg/dL. VLDL-Cholesterol 15 0 - 30 mg/dL [facility] LABS Cholesterol/HDL Ratio 3.2 0.0 - 5.0 [facility] LAB[facility] Specimen Anatomical Collection Method Collection Time Receive d Time (Source) Location / / Volume Laterality Blood specimen 02/08/2012 7:25 AM 012 7:30 (specimen) CDT AM CDT Darian Joshi MD LAB - BLOOD ORDERABLES Performing Organization Address City/State/ZIP Code Phon e Number [facility] [address] [place] [address] [facility] LABS ABO/Rh type and screen (02/08/2012 7:25 AM CDT) Patholo gist Method Time Signature ABO A [facility] LABS RH(D) Pos [facility] LABS Antibody Neg [facility] Screen [facility] Specimen 02/11/2012 [facility] Expires [facility] Specimen Anatomical Collection Method Collection Time Receive d Time (Source) Location / / Volume Laterality Blood specimen 02/08/2012 7:25 AM 012 7:30 (specimen) CDT AM CDT Darian Joshi MD LAB - BLOOD BANK TEST ORDER Performing Organization Address City/[facility]/ZIP Code Phon e Number [facility] [address] LABS Varicella zoster antibody IgG (02/08/2012 7:25 AM CDT) Patholo gist Method Time Signature Varicella 1023.00 [facility] Zoster IgG [place] Immune Status CAMPUS LABS Ratio Vari Zoster Positive, [facility] IgG Interp suggests [place] prev. CAMPUS LABS exposure and probable immunity Specimen Anatomical Collection Method Collection Time Receive d Time (Source) Location / / Volume Laterality Blood specimen 02/08/2012 7:25 AM 012 7:30 (specimen) CDT AM CDT Darian Joshi MD LAB - BLOOD ORDERABLES Performing Organization Address City/[facility]/ZIP Code Phon e Number [facility] [address] LABS Anti treponema EIA (02/08/2012 7:25 AM CDT) Analysis Performed At Patho logist Time Signature Treponema Negative NEG [facility] Antibody [place] [facility] Specimen Anatomical Collection Method Collection Time Receive d Time (Source) Location / / Volume Laterality Blood specimen 02/08/2012 7:25 AM 012 7:30 (specimen) CDT AM CDT Darian Joshi MD LAB - BLOOD ORDERABLES Performing Organization Address City/[facility]/ZIP Code Phon e Number [facility] [address] [place], [place] [phone] [place] [address] LABS HIV 1 and 2 Antibody (02/08/2012 7:25 AM CDT) Analysis Performed At Patho logist Time Signature HIV 1&2 Negative NEG [facility] Antibody [facility] Specimen Anatomical Collection Method Collection Time Receive d Time (Source) Location / / Volume Laterality Blood specimen 02/08/2012 7:25 AM 012 7:30 (specimen) CDT AM CDT Darian Joshi MD LAB - BLOOD ORDERABLES Performing Organization Address City/State/ZIP Code Phon e Number [facility] [address] [place], [place] [phone] [place] [address] LABS Hepatitis C antibody (02/08/2012 7:25 AM CDT) Analysis Performed At Patho logist Time Signature Hepatitis C Negative NEG [facility] Antibody [facility] Specimen Anatomical Collection Method Collection Time Receive d Time (Source) Location / / Volume Laterality Blood specimen 02/08/2012 7:25 AM 012 7:30 (specimen) CDT AM CDT Darian Joshi MD LAB - BLOOD ORDERABLES Performing Organization Address City/State/ZIP Code Phon e Number [facility] [address] [place], [place] [phone] [place] [address] LABS Hepatitis B surface antigen (02/08/2012 7:25 AM CDT) [facility] Signature Hep B Surface Negative NEG [facility] Agn [facility] Specimen Anatomical Collection Method Collection Time Receive d Time (Source) Location / / Volume Laterality Blood specimen 02/08/2012 7:25 AM 012 7:30 (specimen) CDT AM CDT Darian Joshi MD LAB - BLOOD ORDERABLES Performing Organization Address City/[facility]/ZIP Code Phon e Number [facility] [address] LABS Hepatitis B surface antibody (02/08/2012 7:25 AM CDT) P athologist Signature Hep B Surface 135.0 [facility] LABS Comment: Positive, Patient is considered to [...] Phon e Number [facility] [address] [place], [place] [phone] [place] [address] LABS Hepatitis B core antibody (02/08/2012 7:25 AM CDT) Analysis Performed At Patho logist Time Signature Hepatitis B Negative NEG [facility] Specimen Anatomical Collection Method Collection Time Receive d Time (Source) Location / / Volume Laterality Blood specimen 02/08/2012 7:25 AM 012 7:30 (specimen) CDT AM CDT Darian Joshi MD LAB - BLOOD ORDERABLES Performing Organization Address City/[facility]/ZIP Code Phon e Number [facility] [address] LABS EBV VCA IgG Antibody (02/08/2012 7:25 AM CDT) P athologist Signature EBV VCA IgG 188.00 U/mL [facility] LABS Comment: Positive, suggests immunologic exposure. Specimen Anatomical Collection Method Collection Time Receive d Time (Source) Location / / Volume Laterality Blood specimen 02/08/2012 7:25 AM 012 7:30 (specimen) CDT AM CDT Darian Joshi MD LAB - BLOOD ORDERABLES Performing Organization Address City/[facility]/ZIP Code Phon e Number [facility] [address] LABS CMV IGG ANTIBODY (02/08/2012 7:25 AM CDT) P athologist Signature CMV IgG 3.30 U/mL [facility] LABS Comment: Positive for anti-CMV IgG Specimen Anatomical Collection Method Collection Time Receive d Time (Source) Location / / Volume Laterality Blood specimen 02/08/2012 7:25 AM 012 7:30 (specimen) CDT AM CDT Darian Joshi MD LAB - BLOOD ORDERABLES Performing Organization Address City/[facility]/ZIP Code Phon e Number [facility] [address] LABS Immunology recipient: SOT HLA Workup (ABC,DR,DQ,PRA,Crossmatch) (02/08/2012 7:25 AM CDT) Patholo gist Method Time Signature Immunology SOT HLA WORKUP [facility] Test Name [facility] Immunology Specimen [facility] Result received - [place] Immunology CAMPUS LABS report to follow upon completion. Specimen Anatomical Collection Method Collection Time Receive d Time (Source) Location / / Volume Laterality Blood specimen 02/08/2012 7:25 AM 012 7:30 (specimen) CDT AM CDT Darian Joshi MD LAB - IMMUNOLOGY ORDERABLES Performing Organization Address City/State/ZIP Code Phon e Number [facility] [address] [place] [address] [facility] [place] [facility] (ABNORMAL) CBC with platelets differential (02/08/2012 7:25 AM CDT) [facility] gist Method Time Signature WBC 6.3 4.0 - [facility] 11.0 UN[facility]ITY 10e9/L CAMPUS LABS RBC Count 3.97 (L) 4.4 - 5.9 [facility] 10e12/L [facility] Hemoglobin 12.0 (L) 13.3 - [facility] 17.7 g/dL [facility] Hematocrit 36.3 (L) 40.0 - [facility] 53.0 % [facility] MCV 91 78 - 100 [facility] fl [facility]ITY [place] [facility] MCH 30.2 26.5 - [facility] 33.0 pg [place] CAMPUS LABS MCHC 33.1 31.5 - [facility] 36.5 g/dL [facility] RDW 15.3 (H) 10.0 - [facility] 15.0 % UN[facility]ITY CAMPUS LABS Platelet Count 144 (L) 150 - 450 [facility] 10e9/L [facility] Diff Method Automated [facility] Method [facility] % Neutrophils 57.7 40 - 75 % [facility] LABS % Lymphocytes 27.7 20 - 48 % [facility] % Monocytes 8.2 0 - 12 % [facility] % Eosinophils 6.1 (H) 0 - 6 % [facility] % Basophils 0.3 0 - 2 % [facility] % Immature 0.0 0 - 0.4 % [facility] Granulocytes [facility] Absolute 3.6 1.6 - 8.3 [facility] Neutrophil 10e9/L [facility] Absolute 1.7 0.8 - 5.3 [facility] Lymphocytes 10e9/L [facility] Absolute 0.5 0.0 - 1.3 [facility] Monocytes 10e9/L [facility] Absolute 0.4 0.0 - 0.7 [facility] Eosinophils 10e9/L [facility] Absolute 0.0 0.0 - 0.2 [facility] Basophils 10e9/L [facility]AMP[facility] LABS Abs Immature 0.0 0 - 0.03 [facility] Granulocytes 10e9/L [facility] Specimen Anatomical Collection Method Collection Time Receive d Time (Source) Location / / Volume Laterality Blood specimen 02/08/2012 7:25 AM 012 7:30 (specimen) CDT AM CDT Darian Joshi MD LAB - BLOOD ORDERABLES Performing Organization Address [facility]/ZIP Code Phon e Number [facility] [address] LABS Lupus panel (02/08/2012 7:25 AM CDT) Component Value Ref Test Analysis Performed At Patholo gist Range Method Time Signature Lupus Result Negative NEG [facility] (Note) [place] COMMENTS: [place] [facility] The INR is normal. APTT is normal. ??1:2 Mix is not indicated. DRVVT Screen is normal. Thrombin time is normal. NEGATIVE TEST; A LUPUS ANTICOAGULANT WAS NOT DETECTED IN THI S SPECIMEN WITHIN THE LIMITS OF THE TESTING REPERTOIRE. If the clinical picture is strongly suggestive of an antipho spholipid syndrome, recommend anticardiolipin and [id number] (IgG and IgM) antibody tests. Dee Duenas M.D. ??[phone] 02-09-2012. APTT'S: ?? Seconds Reagent = Stago [...] Address City/[facility]/ZIP Code Phon e Number [facility] [address] [place], [place] [phone] [place] [address] LABS Thrombin time (02/08/2012 7:25 AM CDT) P athologist Signature Thrombin Time 16.7 13.0 - [facility] 19.0 sec CAMPUS LABS Specimen Anatomical Collection Method Collection Time Receive d Time (Source) Location / / Volume Laterality Blood specimen 02/08/2012 7:25 AM 012 7:30 (specimen) CDT AM CDT Darian Joshi MD LAB - BLOOD ORDERABLES Performing Organization Address City/[facility]/ZIP Code Phon e Number [facility] [address] LABS Partial thromboplastin time (02/08/2012 7:25 AM CDT) P athologist Signature PTT 29 22 - 37 sec [facility] LABS Specimen Anatomical Collection Method Collection Time Receive d Time (Source) Location / / Volume Laterality Blood specimen 02/08/2012 7:25 AM 012 7:30 (specimen) CDT AM CDT Darian Joshi MD LAB - BLOOD ORDERABLES Performing Organization Address City/[facility]/ZIP Code Phon e Number [facility] [address] LABS INR (02/08/2012 7:25 AM CDT) P athologist Signature INR 1.11 0.86 - 1.14 [facility] LABS Specimen Anatomical Collection Method Collection Time Receive d Time (Source) Location / / Volume Laterality Blood specimen 02/08/2012 7:25 AM 012 7:30 (specimen) CDT AM CDT Darian Joshi MD LAB - BLOOD ORDERABLES Performing Organization Address City/[facility]/ZIP Code Phon e Number [phone] [place] [address] LABS Factor 2 and 5 mutation analysis (02/08/2012 7:07 AM CDT) Component Value Ref Test Analysis Performed At [facility] Range Method Time Signature Copath Report Patient Name: ELINOR GUTHRIE MR#: [id number] Specimen #: [id number] Collected: 02/08/2012 07:07 Received: 02/08/2012 09:00 Reported: 02/11/2012 14:03 Ordering Phy(s): DARIAN JOSHI TEST(S) REQUESTED: A: Factor 5 Leiden and Factor 2 by PCR B: DNA Isolation, High purity extraction SPECIMEN DESCRIPTION: Blood METHODOLOGY: ?? The regions of genomic DNA containing the G1 691A Factor 5 gene mutation (Factor V Leiden) and the Factor 2(Prothrombin Q50909S) gene mutation were simultaneously amplified using the polyme rase chain reaction. ??The amplified products were digested with restri ction endonuclease TaqI and products were analyzed by gel electrop horesis. RESULTS: FACTOR 5-LEIDEN RESULTS: Mutation analyzed: ? 1691G>A Factor 5 Mutation Interpretation: ?ABSENT Factor 5 Mutation genotype: ?G/G FACTOR 2/PROTHROMBIN RESULTS: Mutation analyzed: ? 94244M>A Factor 2 Mutation Interpretation: ?ABSENT Factor 2 Mutation genotype: ?G/G INTERPRETATION: The patient is negative for the Factor 5 mutation and negati ve for the Factor 2 mutation. This test was developed and its performance determined by [facility] ??Molecular Diagnostic Laboratory. It has not been [...] By: Liliya Stone MD TESTING LAB LOCATION: [address] [address] COLLECTION SITE: Client: ??[facility] Location: ??UUTXO (B) Specimen Anatomical Collection Method Collection Time Receive d Time (Source) Location / / Volume Laterality 02/08/2012 7:07 AM 2 9:00 CDT AM CDT Provider Unknown LAB - GENOMICS Performing Organization Address City/State/ZIP Code Phon e Number [facility] (ABNORMAL) Routine UA with microscopic (02/08/2012 7:06 AM CDT) Component Value Ref Test Analysis Performed At [facility] gist Range Method Time Signature Color Urine Light Yellow [facility] Appearance Urine Clear [facility] Glucose Urine 300 (A) NEG [facility] mg/dL [facility]AMP[facility] LABS Bilirubin Urine Negative NEG [facility] LABS Ketones Urine Negative NEG [facility] mg/dL [facility] [place] [facility] Specific [place] 1.010 1.003 - [facility] Urine 1.035 [facility] [place] [facility] Blood Urine Negative NEG [facility]ITY [facility]AMP[facility] LABS pH Urine 7.5 (H) 5.0 - [facility] 7.0 pH [facility]AMP[facility] LABS Protein Albumin 300 (A) NEG [facility] Urine mg/dL [facility] [place] [facility] Urobilinogen Normal 0.0 - [facility] mg/dL 2.0 [place] mg/dL CAMPUS LABS Nitrite Urine Negative NEG [facility]ITY [facility]AMP[facility] LABS Leukocyte Negative NEG [facility] Esterase Urine [facility] [place] [facility] Source Unspecified [facility] Urine [facility] CAMPUS LABS WBC Urine 1 0 - 2 [facility] /HPF [place] C[facility]US LABS RBC Urine <1 0 - 2 [facility] /HPF [facility] Hyaline Casts 3 (H) 0 - 2 [facility] /LPF [facility] Specimen Anatomical Collection Method Collection Time Receive d Time (Source) Location / / Volume Laterality Urine specimen 02/08/2012 7:06 AM 012 7:08 (specimen) CDT AM CDT Darian Joshi MD LAB - URINE ORDERABLES Performing Organization Address City/State/ZIP Code Phon e Number [facility] [address] [facility] documented in this encounter Visit Diagnoses Diagnosis Diabetes mellitus, type 2 (H) Type II or unspecified type diabetes aung litus without mention of complication, not stated as uncontrolled End stage renal disease (H) End stage renal disease documented in this encounter Care Teams Admitting Manager Relationship Specialty Start Date End Date Toña Jones MD PCP - General Nephrology 11/25/11 01/01/14 documented as of this encounter
--- OUTSIDE RECORDS SUMMARY | 2022-04-07 11:15 | XMS_ITS | Encounter Summary ---
:1950 Author Organization [place] Address [address] [place] [address]. [place] [address] Care Team Providers Name Role Phone Toña Jones MD Primary Care Provider Reason for Visit Reason Comments Transplant Evaluation Kidney transplant evaluation - Diabetes, End Stage Renal Disease Encounter Details Date Type Department Care Team Description 02/08/2012 Office Visit The Transplant Edda Cardenas, Ty Blink, DM (diabetes 2nd Floor, Clinic 2A MD mellitus), type 2 (H) Tommy Wilburn (Primar y Dx) [address] [phone] Social History Tobacco Use Types Packs/Day Years [...] (willing/able to accept information): Yes Any cultural factors/adventist beliefs that may influence understanding or compliance? [...] uncontrolled documented in this encounter Care Teams Commutator Repairer Relationship Specialty Start Date End Date Toña Jones MD PCP - General Nephrology 11/25/11 01/01/14 documented as of this encounter
--- OUTSIDE RECORDS SUMMARY | 2022-04-07 11:15 | XMS_ITS | Encounter Summary ---
:1950 Author Organization [place] Address [address] [facility] [place] [address] Care Team Providers Name Role Phone Toña Jones MD Primary Care Provider Ingrid Santana RN Unavailable Encounter Details Date Type Department Care Team Description 02/08/2012 Results Only LABORATORY RESULTS Jeff Joshi MD [address] [facility] [address] [place] [address] (Wo rk) Social History Tobacco [...] LAB - IMMUNOLOGY ORDERABLES Performing Organization Address City/State/[facility] Code Phon e Number [facility] Immunology/Histocompatabil [place], [place] [address] ity [facility] [address] [facility] [address] Building, Room 3-580 HISTOTRAC documented in this encounter Visit Diagnoses Not on filedocumented in this encounter Care Teams Hospital Aide Relationship Specialty Start Date End Date Toña Jones MD PCP - General Nephrology 11/25/11 01/01/14 Ingrid Santana RN Registered Nurse Transplant 02/10/12 10/01/15 documented as of this encounter
--- OUTSIDE RECORDS SUMMARY | 2022-04-07 11:15 | XMS_ITS | Encounter Summary ---
:1950 Author Organization [place] Address [address] [place] [address] Care Team Providers Name Role Phone Toña Jones MD Primary Care Provider Reason for Visit (Routine) - Closed Specialty Diagnoses / Procedures Referred By Contact Refer red To Contact Cardiology Diagnoses ECHO CLINIC COMPLETE ADULT Procedure Notes: DIABETES MELLITUS, TYPE 2,END STAGE RENAL DISEASE,Transplant eval,Performing Location?->[facility] Echocardiography Procedures RADIOLOGY [address] [place] [address] Phone: Referral ID Status Reason Start Date Expiration Date Visits Requ ested Visits Authorized [id number] Closed 01/21/2012 01/20/2013 1 1 Encounter Details Date Type Department Care Team Description 02/08/2012 Hospital Encounter [facility], [place], Jeff Joshi MD [address] [facility] [address] [place] [address] Diabetes mellitus, type 2 (H); Echocardiography Rajat German MD [address] [facility] [address] [place] [address] End stage renal disease (H) [address] [place] [address] Social History Tobacco Use Types [...] tablet by mouth 0 02/18/2014 daily. B omhjpby-C-qnidr acid Take 1 capsule by mouth 0 [...] - Clinic (PWB) (02/08/2012 1:13 PM CDT) [facility] Method Time Signature XC[facility] RADIOLOGY Interpretation [...] disease documented in this encounter Care Teams Transportation Logistics Internship Relationship Specialty Start Date End Date Toña Jones MD PCP - General Nephrology 11/25/11 01/01/14 documented as of this encounter
--- OUTSIDE RECORDS SUMMARY | 2022-04-07 11:15 | XMS_ITS | Encounter Summary ---
:1950 Author Organization [place] Address [address] [place] [address] Care Team Providers Name Role Phone Toña Jones MD Primary Care Provider Ingrid Santana RN Unavailable Reason for Visit (Routine) - Closed Specialty Diagnoses / Procedures Referred By Contact Refer red To Contact Radiology Diagnoses [place] MPI SCAN Procedure Notes: UNSPECIFIED ESSENTIAL HYPERTENSION,PREOPERATIVE EXAMINATION, UNSPECIFIED, Uu Nuclear Medicine Procedures RADIOLOGY [address] [place] [address] Phone: Referral ID Status Reason Start Date Expiration Date Visits Requ ested Visits Authorized [id number] Closed 02/11/2012 02/10/2013 1 1 Encounter Details Date Type Department Care Team Description 02/15/2012 Hospital Encounter [facility] Barbara Bradley ESRD (end stage [facility] Imaging MD Monae renal disease) (H) [address] [facility] [address] [place] [address] [phone] Social History Tobacco Use Types Packs/Day Years [...] tablet by mouth 0 02/18/2014 daily. B rswgixc-Y-rjvff acid Take 1 capsule by mouth 0 [...] disease documented in this encounter Care Teams Software Designer Relationship Specialty Start Date End Date Toña Jones MD PCP - General Nephrology 11/25/11 01/01/14 Ingrid Santana RN Registered Nurse Transplant 02/10/12 10/01/15 documented as of this encounter
--- OUTSIDE RECORDS SUMMARY | 2022-04-07 11:15 | XMS_ITS | Encounter Summary ---
:1950 Author Organization [place] Address [address] [facility] [place] [address] Care Team Providers Name Role Phone Toña Jones MD Primary Care Provider Ingrid Santana RN Unavailable Encounter Details Date Type Department Care Team Description 02/10/2012 Orders Only [facility] Ainta Joshi MD Diabetes mellitus, type 2 (H); Clinic Imaging [address] [facility] End stage renal disease (H) [facility] [address] [place], [place] 1st Floor, Clinic [address] [place] [address] [address] Social History Tobacco Use Types [...] disease documented in this encounter Care Teams Welfare Investigator Relationship Specialty Start Date End Date Toña Jones MD PCP - General Nephrology 11/25/11 01/01/14 Ingrid Santana RN Registered Nurse Transplant 02/10/12 10/01/15 documented as of this encounter
--- OUTSIDE RECORDS SUMMARY | 2022-04-07 11:15 | XMS_ITS | Encounter Summary ---
:1950 Author Organization [place] Address [facility] [place] [address] Care Team Providers Name Role Phone Toña Jones MD Primary Care Provider Reason for Referral - Closed Specialty Diagnoses / Procedures Referred By Contact Refer red To Contact Diagnoses Diabetes mellitus, type 2 (H) End stage renal disease (H) [facility] Floor, [place] [phone] Referral ID Status Reason Start Date Expiration Date Visits Requ ested Visits Authorized [id number] Closed 12/02/2011 05/30/2012 1 1 - Closed Specialty Diagnoses / Procedures Referred By Contact Refer red To Contact Diagnoses Diabetes mellitus, type 2 (H) End stage renal disease (H) [facility] Floor, [address] [phone] Referral ID Status Reason Start Date Expiration Date Visits Requ ested Visits Authorized [id number] Closed 12/02/2011 05/30/2012 1 1 - Closed Specialty Diagnoses / Procedures Referred By Contact Refer red To Contact Diagnoses Diabetes mellitus, type 2 (H) End stage renal disease (H) [facility] 2nd Floor, [facility] 2A [place] [phone] Referral ID Status Reason Start Date Expiration Date Visits Requ ested Visits Authorized [id number] Closed 12/02/2011 05/30/2012 1 1 - Closed Specialty Diagnoses / Procedures Referred By Contact Refer red To Contact Diagnoses Diabetes mellitus, type 2 (H) End stage renal disease (H) [facility] 2nd Floor, Clinic 2A [place] [phone] Referral ID Status Reason Start Date Expiration Date Visits Requ ested Visits Authorized [id number] Closed 12/02/2011 05/30/2012 1 1 - Closed Specialty Diagnoses / Procedures Referred By Contact Refer red To Contact Diagnoses Diabetes mellitus, type 2 (H) End stage renal disease (H) [facility] Floor, [address] [phone] Referral ID Status Reason Start Date Expiration Date Visits Requ ested Visits Authorized [id number] Closed 12/02/2011 05/30/2012 1 1 - Closed Specialty Diagnoses / Procedures Referred By Contact Refer red To Contact Diagnoses Diabetes mellitus, type 2 (H) End stage renal disease (H) [facility] [address] [place] [address], [address] [phone] Referral ID Status Reason Start Date Expiration Date Visits Requ ested Visits Authorized [id number] Closed 12/02/2011 05/30/2012 1 1 - Closed Specialty Diagnoses / Procedures Referred By Contact Refer red To Contact Diagnoses Diabetes mellitus, type 2 (H) End stage renal disease (H) [facility] 2nd Floor, Clinic [address] [phone] Referral ID Status Reason Start Date Expiration Date Visits Requ ested Visits Authorized [id number] Closed 12/02/2011 05/30/2012 1 1 - Closed Specialty Diagnoses / Procedures Referred By Contact Refer red To Contact Diagnoses Diabetes mellitus, type 2 (H) End stage renal disease (H) [facility] 2nd Floor, Clinic [address] [phone] Referral ID Status Reason Start Date Expiration Date Visits Requ ested Visits Authorized [id number] Closed 12/02/2011 05/30/2012 1 1 - Closed Specialty Diagnoses / Procedures Referred By Contact Refer red To Contact Diagnoses Diabetes mellitus, type 2 (H) End stage renal disease (H) [facility] 2nd Floor, Clinic [address]A [address] [phone] Referral ID Status Reason Start Date Expiration Date Visits Requ ested Visits Authorized [id number] Closed 12/02/2011 05/30/2012 1 1 Encounter Details Date Type Department Care Team Description 12/02/2011 Orders Only Nephrology Ingrid Santana, Diabetes mellitus, type 2 (H ); 2nd Floor, Clinic 2A RN End stage renal disease (H) [facility] [phone] Building (Work) [address] [place] [address] Social History Tobacco Use Types Packs/Day [...] 2 (H) End stage renal disease (H) RODENT EXTERMINATOR Referral Routine Diabetes mellitus, Ordered: 12/02/2011 REFERRAL type 2 (H) End stage renal disease (H) NEPHROLOGY ADULT REFERRAL Referral Routine Diabetes mellit us, Ordered: 12/02/2011 type 2 (H) End stage renal disease (H) GENERAL SURG ADULT Referral Routine Diabetes mellitus, Ord ered: 12/02/2011 REFERRAL type 2 (H) End stage renal disease (H) PATIENT FINANCIAL SERVICES MANAGER REFERRAL Referral Routine Diabetes mellitu s, Ordered: [...] disease documented in this encounter Care Teams Territory Development Manager Relationship Specialty Start Date End Date Toña Jones MD PCP - General Nephrology 11/25/11 01/01/14 documented as of this encounter
--- OUTSIDE RECORDS SUMMARY | 2022-04-07 11:15 | XMS_ITS | Encounter Summary ---
:1950 Author Organization [place] Address [facility] [address] Care Team Providers Name Role Phone Toña Jones MD Primary Care Provider Reason for Visit Reason Onset Date Comments Pre Visit Planning - Done 02/07/2012 Consult prior to kidney transplant, needs EKG please. Encounter Details Date Type Department Care Team Description 02/07/2012 PRE VISIT [facility] Barbara Bradley Pre Visit Planning - Physicians Heart MD Monae Done (Consult prior to [facility] [address] kidney transplant, [place] [address] needs EKG please.) 4th Floor, Clinic [address] [phone] Social History Tobacco Use Types [...] on filedocumented in this encounter Care Teams Dam Attendant Relationship Specialty Start Date End Date Toña Jones MD PCP - General Nephrology 11/25/11 01/01/14 documented as of this encounter
--- OUTSIDE RECORDS SUMMARY | 2022-04-07 11:15 | XMS_ITS | Encounter Summary ---
:1950 Author Organization [place] Address [address] [place] [address]. [place] [address] Care Team Providers Name Role Phone Toña Jones MD Primary Care Provider Ingrid Santana RN Unavailable Momo Forbes Primary Care Provider Encounter Details Date Type Department Care Team Description 02/18/2012 Abstract [facility] 2nd [facility], Clinic 2A [place] [phone] Social History Tobacco Use Types Packs/Day [...] filedocumented in this encounter Care Teams Manager Clinical Pharmacy Relationship Specialty Start Date End Date Toña Jones MD PCP - General Nephrology 11/25/11 01/01/14 Momo Forbes PCP - General Family Practice 01/02/[address] [place] [address] Ingrid Santana RN Registered Nurse Transplant 02/10/12 10/01/15 documented as of this encounter
--- OUTSIDE RECORDS SUMMARY | 2022-04-07 11:16 | XMS_ITS | Encounter Summary ---
:1950 Author Organization [place] Address [facility]0 [facility] [place] [address] Care Team Providers Name Role Phone Toña [...] on filedocumented in this encounter Care Teams Pay Per Click Strategist Relationship Specialty Start Date End Date Toña Jones MD PCP - General Nephrology 11/25/11 01/01/14 Momo Forbes PCP - General Family Practice 01/02/14 [facility] [address] [place] [address] Ingrid Santana, RN Registered Nurse Transplant 02/10/12 10/01/15 documented as of this encounter
--- OUTSIDE RECORDS SUMMARY | 2022-04-07 11:16 | XMS_ITS | Encounter Summary ---
:1950 Author Organization [place] Address [address] [place] [address]. [place] [address] Care Team Providers Name Role Phone Toña [...] on filedocumented in this encounter Care Teams Dye Jig Operator Relationship Specialty Start Date End Date Toña Jones MD PCP - General Nephrology 11/25/11 01/01/14 Momo Forbes PCP - General Family Practice 01/02/14 [facility] [address] [place] [address] Ingrid Santana, RN Registered Nurse Transplant 02/10/12 10/01/15 documented as of this encounter
--- OUTSIDE RECORDS SUMMARY | 2022-04-07 11:16 | XMS_ITS | Encounter Summary ---
:1950 Author Organization [place] Address [address] [place] [address]. [place] [address] Care Team Providers Name Role Phone Toña [...] on filedocumented in this encounter Care Teams Dude Ranch Manager Relationship Specialty Start Date End Date Toña Jones MD PCP - General Nephrology 11/25/11 01/01/14 Momo Forbes PCP - General Family Practice 01/02/14 [facility] [address] [place] [address] Ingrid Santana, RN Registered Nurse Transplant 02/10/12 10/01/15 documented as of this encounter
--- OUTSIDE RECORDS SUMMARY | 2022-04-07 11:16 | XMS_ITS | Encounter Summary ---
:1950 Author Organization [place] Address [address] [facility] [place] [address] Care Team Providers Name Role Phone Toña [...] filedocumented in this encounter Care Teams Box Truck Washer Relationship Specialty Start Date End Date Toña Jones MD PCP - General Nephrology 11/25/11 01/01/14 Momo Forbes PCP - General Family Practice 01/02/14 [facility] [address] [place] [address] Ingrid Santana, RN Registered Nurse Transplant 02/10/12 10/01/15 documented as of this encounter
--- OUTSIDE RECORDS SUMMARY | 2022-04-07 11:16 | XMS_ITS | Encounter Summary ---
:1950 Author Organization [place] Address [address] [place] [address] Care Team Providers Name Role Phone Unavailable Primary Care Provider Unavailable Encounter Details Date Type Department Care Team Description 07/30/2009 Results [facility] Results [address] [place] [id number] Social History Tobacco Use Types Packs/Day Years Used Date Never Assessed Sex Assigned at Date Recorded Not on file documented as of this encounter Plan of Treatment Not on filedocumented as of this encounter Procedures Procedure Name Priority Date/Time Associated Diagnosis Comme [facility] RT DUPLEX Routine 07/30/2009 12:32 PM Results for this EXTREM VENOUS,UNI SECURITY SITE SUPERVISOR procedure are in OR LTD the results section. documented in this encounter Results RT DUPLEX EXTREM VENOUS,UNI OR LTD (07/30/2009 12:32 PM SECURITY SITE SUPERVISOR) Specimen (Source) Anatomical Collection Method Collection Time Re ceived Time Location / / Volume Laterality 07/30/2009 12:32 PM SECURITY SITE SUPERVISOR Impressions RADIOLOGY RESULTS - 07/30/2009 4:21 PM [...]
--- OUTSIDE RECORDS SUMMARY | 2022-04-07 11:16 | XMS_ITS | Encounter Summary ---
:1950 Author Organization [place] Address [address] [place] [address]. [place] [address] Care Team Providers Name Role Phone Toña [...] on filedocumented in this encounter Care Teams Sulfonator Operator Relationship Specialty Start Date End Date Toña Jones MD PCP - General Nephrology 11/25/11 01/01/14 Momo Forbes PCP - General Family Practice 01/02/14 [facility] [address] [place] [address] Ingrid Santana, RN Registered Nurse Transplant 02/10/12 10/01/15 documented as of this encounter
--- OUTSIDE RECORDS SUMMARY | 2022-04-07 11:16 | XMS_ITS | Encounter Summary ---
:1950 Author Organization [place] Address [address] [place] [address]. [place] [address] Care Team Providers Name Role Phone Toña [...] on filedocumented in this encounter Care Teams Take Down Sorter Relationship Specialty Start Date End Date Toña Jones MD PCP - General Nephrology 11/25/11 01/01/14 Momo Forbes PCP - General Family Practice 01/02/14 [facility] [address] [place] [address] Ingrid Santana, RN Registered Nurse Transplant 02/10/12 10/01/15 documented as of this encounter
--- OUTSIDE RECORDS SUMMARY | 2022-04-07 11:16 | XMS_ITS | Encounter Summary ---
:1950 Author Organization [place] Address [address] [place] [address]. [place] [address] Care Team Providers Name Role Phone Toña Jones MD Primary Care Provider Ingrid Santana RN Unavailable Momo Forbes Primary Care Provider Encounter Details Date Type Department Care Team Description 01/28/1998 Hospital - [facility] Cesar Tejeda [facility] [address] [place], [place] [address] (Wo rk) Social History Tobacco Use Types Packs/Day Years Used Date Never Assessed Sex Assigned at Date Recorded Not on file documented as of this encounter Plan of Treatment Not on filedocumented as of this encounter Visit Diagnoses Not on filedocumented in this encounter Care Teams Lead Performance Support Analyst Relationship Specialty Start Date End Date Toña Jones MD PCP - General Nephrology 11/25/11 01/01/14 Momo Forbes PCP - General Family Practice 01/02/[address] [address] Ingrid Santana, RN Registered Nurse Transplant 02/10/12 10/01/15 documented as of this encounter
--- OUTSIDE RECORDS SUMMARY | 2022-04-07 11:16 | XMS_ITS | Encounter Summary ---
:1950 Author Organization [place] Address [address] [place] [address]. [place] [address] Care Team Providers Name Role Phone Toña [...] on filedocumented in this encounter Care Teams Product Marketing Director Relationship Specialty Start Date End Date Toña Jones MD PCP - General Nephrology 11/25/11 01/01/14 Momo Forbes PCP - General Family Practice 01/02/14 [facility] [address] [place] [address] Ingrid Santana, RN Registered Nurse Transplant 02/10/12 10/01/15 documented as of this encounter
--- OUTSIDE RECORDS SUMMARY | 2022-04-07 11:16 | XMS_ITS | Encounter Summary ---
:1950 Author Organization [place] Address [address] [place] [address]. [place] [address] Care Team Providers Name Role Phone Toña [...] on filedocumented in this encounter Care Teams Chief Medical Technologist Relationship Specialty Start Date End Date Toña Jones MD PCP - General Nephrology 11/25/11 01/01/14 Momo Forbes PCP - General Family Practice 01/02/14 [facility] [address] [place] [address] Ingrid Santana, RN Registered Nurse Transplant 02/10/12 10/01/15 documented as of this encounter
--- OUTSIDE RECORDS SUMMARY | 2022-04-07 11:16 | XMS_ITS | Encounter Summary ---
:1950 Author Organization [place] Address [address] [place] [address]. [place] [address] Care Team Providers Name Role Phone Toña [...] on filedocumented in this encounter Care Teams Freight Dispatcher Relationship Specialty Start Date End Date Toña Jones MD PCP - General Nephrology 11/25/11 01/01/14 Momo Forbes PCP - General Family Practice 01/02/14 [facility] [address] [place] [address] Ingrid Santana, RN Registered Nurse Transplant 02/10/12 10/01/15 documented as of this encounter
--- OUTSIDE RECORDS SUMMARY | 2022-04-07 11:16 | XMS_ITS | Encounter Summary ---
:1950 Author Organization [place] Address [address] [place] [address]. [place] [address] Care Team Providers Name Role Phone Toña [...] on filedocumented in this encounter Care Teams Core Filer Relationship Specialty Start Date End Date Toña Jones MD PCP - General Nephrology 11/25/11 01/01/14 Momo Forbes PCP - General Family Practice 01/02/14 [facility] [address] [place] [address] Ingrid Santana, RN Registered Nurse Transplant 02/10/12 10/01/15 documented as of this encounter
--- OUTSIDE RECORDS SUMMARY | 2022-04-07 11:16 | XMS_ITS | Encounter Summary ---
:1950 Author Organization [place] Address [address] [place] [address]. [place] [address] Care Team Providers Name Role Phone Toña [...] on filedocumented in this encounter Care Teams Patcher Wood Welder Relationship Specialty Start Date End Date Toña Jones MD PCP - General Nephrology 11/25/11 01/01/14 Momo Forbes PCP - General Family Practice 01/02/[address] [address] Ingrid Santana, RN Registered Nurse Transplant 02/10/12 10/01/15 documented as of this encounter
--- OUTSIDE RECORDS SUMMARY | 2022-04-07 11:16 | XMS_ITS | Encounter Summary ---
:1950 Author Organization [place] Address [address] [facility] [place] [address] Care Team Providers Name Role Phone Toña [...] on filedocumented in this encounter Care Teams It Project Coordinator Relationship Specialty Start Date End Date Toña Jones MD PCP - General Nephrology 11/25/11 01/01/14 Momo Forbes PCP - General Family Practice 01/02/14 [facility] [address] [place] [address] Ingrid Santana, RN Registered Nurse Transplant 02/10/12 10/01/15 documented as of this encounter
--- OUTSIDE RECORDS SUMMARY | 2022-04-07 11:16 | XMS_ITS | Encounter Summary ---
:1950 Author Organization [place] Address [facility] [place] [address] Care Team Providers Name Role Phone Toña Jones MD Primary Care Provider Ingrdi Santana RN Unavailable Momo Forbes Primary Care [...] CARDIAC - HIM SCAN 08/30/2011 8:28 AM ANNUAL GIVING DIRECTOR - ARCHIVE ECHO CARDIAC - HIM SCAN 08/30/2011 8:27 AM ANNUAL GIVING DIRECTOR - ARCHIVE documented in this encounter Results EKG CARDIAC - HIM SCAN - ARCHIVE (08/30/2011 8:28 AM ANNUAL GIVING DIRECTOR) Specimen (Source) Anatomical Location Collection Method / Collectio n Time Received Time / Laterality Volume Narrative This result has an attachment that is no t available. Marcela Provider ECG ORDERABLES ECHO CARDIAC - HIM SCAN - ARCHIVE (08/30/2011 8:27 AM ANNUAL GIVING DIRECTOR) Specimen (Source) Anatomical Location Collection Method / Collectio n Time Received Time / Laterality Volume Narrative This result has an attachment that is no t available. Marcela Provider CV ECHO ORDERABLES documented in this encounter Visit Diagnoses Not on filedocumented in this encounter Care Teams Information Systems Security Officer Relationship Specialty Start Date End Date Toña Jones MD PCP - General Nephrology 11/25/11 01/01/14 Momo Forbes PCP - General Family Practice 01/02/14 [facility] [address] [place] [address] Ingrid Santana, RN Registered Nurse Transplant 02/10/12 10/01/15 documented as of this encounter
--- OUTSIDE RECORDS SUMMARY | 2022-04-07 11:16 | XMS_ITS | Encounter Summary ---
:1950 Author Organization [place] Address [facility] [place] [address] Care Team Providers Name Role Phone Toña [...] on filedocumented in this encounter Care Teams Learning Support Specialist Relationship Specialty Start Date End Date Toña Jones MD PCP - General Nephrology 11/25/11 01/01/14 Momo Forbes PCP - General Family Practice 01/02/14 [facility] [address] [place] [address] Ingrid Santana, RN Registered Nurse Transplant 02/10/12 10/01/15 documented as of this encounter
--- OUTSIDE RECORDS SUMMARY | 2022-04-07 11:16 | XMS_ITS | Encounter Summary ---
:1950 Author Organization [place] Address [address] [place] [address]. [place] [address] Care Team Providers Name Role Phone Toña [...] on filedocumented in this encounter Care Teams Blender Conveyor Operator Relationship Specialty Start Date End Date Toña Jones MD PCP - General Nephrology 11/25/11 01/01/14 Momo Forbes PCP - General Family Practice 01/02/14 [facility] [address] [place] [address] Ingrid Santana, RN Registered Nurse Transplant 02/10/12 10/01/15 documented as of this encounter
--- OUTSIDE RECORDS SUMMARY | 2022-04-07 11:16 | XMS_ITS | Encounter Summary ---
:1950 Author Organization [place] Address [address] [place] [address]. [place] [address] Care Team Providers Name Role Phone Toña [...] filedocumented in this encounter Care Teams Manager Assisted Living Relationship Specialty Start Date End Date Toña Jones MD PCP - General Nephrology 11/25/11 01/01/14 Momo Forbes PCP - General Family Practice 01/02/[address] [address] Ingrid Santana, RN Registered Nurse Transplant 02/10/12 10/01/15 documented as of this encounter
--- OUTSIDE RECORDS SUMMARY | 2022-04-07 11:16 | XMS_ITS | Encounter Summary ---
:1950 Author Organization [place] Address [facility] [place] [address] Care Team Providers Name Role Phone Toña [...] on filedocumented in this encounter Care Teams Rivet Driver Relationship Specialty Start Date End Date Toña Jones MD PCP - General Nephrology 11/25/11 01/01/14 Momo Forbes PCP - General Family Practice 01/02/14 [facility] [address] [place] [address] Ingrid Santana, RN Registered Nurse Transplant 02/10/12 10/01/15 documented as of this encounter
--- OUTSIDE RECORDS SUMMARY | 2022-04-07 11:16 | XMS_ITS | Encounter Summary ---
:1950 Author Organization [place] Address [facility] [place] [address] Care Team Providers Name Role Phone Toña [...] filedocumented in this encounter Care Teams Clinical Nursing Assistant Relationship Specialty Start Date End Date Toña Jones MD PCP - General Nephrology 11/25/11 01/01/14 Momo Forbes PCP - General Family Practice 01/02/14 [facility] [address] [place] [address] Ingrid Santana, RN Registered Nurse Transplant 02/10/12 10/01/15 documented as of this encounter
--- OUTSIDE RECORDS SUMMARY | 2022-04-07 11:16 | XMS_ITS | Encounter Summary ---
:1950 Author Organization [place] Address [facility] [place] [address] Care Team Providers Name Role Phone Toña [...] - HIM SCAN - 11/02/2005 8:27 AM TELEPHONE MESSENGER ARCHIVE LAB RESULT - HIM SCAN - 11/02/2005 8:25 AM TELEPHONE MESSENGER ARCHIVE documented in this encounter Results LAB RESULT - HIM SCAN - ARCHIVE (11/02/2005 8:27 AM TELEPHONE MESSENGER) Specimen (Source) Anatomical Location Collection Method / Collectio n Time Received Time / Laterality Volume Narrative This result has an attachment that is no t available. Marcela Provider LAB - BLOOD ORDERABLES LAB RESULT - HIM SCAN - ARCHIVE (11/02/2005 8:25 AM TELEPHONE MESSENGER) Specimen (Source) Anatomical Location Collection Method / Collectio n Time Received Time / Laterality Volume Narrative This result has an attachment that is no t available. Marcela Provider LAB - BLOOD ORDERABLES documented in this encounter Visit Diagnoses Not on filedocumented in this encounter Care Teams Dial Screw Assembler Relationship Specialty Start Date End Date Toña Jones MD PCP - General Nephrology 11/25/11 01/01/14 Momo Forbes PCP - General Family Practice 01/02/14 [facility] [address] [place] [address] Ingrid Santana, RN Registered Nurse Transplant 02/10/12 10/01/15 documented as of this encounter
--- OUTSIDE RECORDS SUMMARY | 2022-04-07 11:20 | XMS_ITS | Continuity of Care Document ---
:1950 Author Organization [facility] Address [address] [address] [place] [address] Phone Care Team Providers Name Role Phone [...] Information Information Health [facility], 1 [address] [address], [place], [place], [id number], [place] tel:[phone] DEMARCO Cross No Darling MICHELE Referring [facility] Information Davis. Pro vider: Health [facility], Hosp [address] [place], [address], [address] [place], [address] [facility] [address], [place], [place], [facility] [id number], [place], [address], [place] [id number], [place] tel:+ . , [place], [id number] tel:[phone] . tel:[phone] [facility] Pancreas Nesset ART EDITOR Digestive Clinic cyst Joan. 3001 Health PA, [address] [place], [address], [address], [place] [facility], [place], [place], [id number], [id number], [place]. tel:+ tel:[phone] [facility] [place] Pancreas December- Nesset ART EDITOR Digestive Clinic cyst Joan. [address] [place], 1 [facility] [place], [address], [address], [facility], s, [place], [place], [id number], [id number], [place]. tel: tel:[phone] [facility] [place] Pancreas Sep- Nesset ART EDITOR Digestive Clinic cyst Joan. 3001 [facility], [address] [place] [address] [place], [address], [address], [facility], s, [place], [id number], [id number], [place]. tel: [phone] Subsqt [facility] Cross No Sep- Nesset ART EDITOR Referring Hosp-da E&m Digestive [facility] Information Joan. 20 09 Provider: [facility], Hosp [address] [place] [address] NE, Aren FINISHING MANAGER [address], [address], [place], [address] [facility] [address], [place], [place], [place], [place], [id number], [id number], [place], [address]. [place]. tel:+50 tel: tel:[phone] Init Hosp-da [facility] Cross No Aug- Prem MICHELE Referri ng E&m Mod Digestive [facility] Information Angelina. 3001 P rovider: [facility], Hosp [address] [place] [address] NE, Arendt FINISHING MANAGER [address], [address], [place], [address] [facility] [address], [place], [place], [place], [place], [id number], [id number], [place], [address]. [place]. tel:+50 tel: tel:[phone] [id number] Family History Family Member Type Diagnosis Age [...] Registry Payers Payer name Insurance type Covered democrat ID Authorization(s ) No Information Social History [...]
== END 2022-04-07 11:02 | disposition home or self-care (01) ==
LOC: WOUND 11:01
PROVIDERS: PCP Family Medicine; Visit Provider Surgery
DX: C44.519 Basal cell carcinoma of skin of other part of trunk (principal)
CPT/HCPCS: 11104; 88305

== ENCOUNTER 2022-04-14 11:01 | Outpatient (CLI) | payer MEDICARE, BC, SELFPAY ==
--- OUTSIDE RECORDS SUMMARY | 2022-04-14 11:03 | XMS_ITS | Encounter Summary ---
:1950 Author Organization [place] Address [facility] [place] [address] Care Team Providers Name Role Phone Momo Forbes Primary Care Provider Joseph Quintana MD Unavailable Reason for Visit Reason Onset Date Comments Voicemail 04/13/2022 Encounter Details Date Type Department Care Team Description 04/13/2022 Telephone [facility] Transplant Obdulia Peacock, BOGDAN Voicemail Clinic [address] [place] [address] [phone] Social History Tobacco Use Types Packs/Day [...] Telephone Encounter - Gretta Peacock RN - 04/14/2022 9:54 AM CDT ISSUE: patient due for transplant labs OUTCOME: patient agreeable to obtaining labs. Updated labs sent to local lab as well as hard copy sent to patient via mail Gretta Peacock RN Machine Ii Trimmer [phone] Telephone Encounter - Adriana Raza - 04/13/2022 2:31 PM CDT Voicemail Date/Time: 04/13/22 2:27 pm Reason for call: Diego received a letter stating we have been trying ot reach him so he was responding documented in this encounter Plan of Treatment Not on filedocumented as of this encounter Visit Diagnoses Not on filedocumented in this encounter Care Teams Can Dragger Relationship Specialty Start Date End Date Momo Forbes PCP - General Family Practice 01/02/14 [facility] [address] [place] [address] Joseph Quintana, Assigned Nephrology 03/29/21 MD Provider [address] [place] [address] documented as of this encounter
--- OUTSIDE RECORDS SUMMARY | 2022-04-14 11:03 | XMS_ITS | Encounter Summary ---
:1950 Author Organization [place] Address [address] [place] [address] Care Team Providers Name Role Phone Momo Forbes Primary Care Provider Joseph Quintana MD Unavailable Encounter Details Date Type Department Care Team Description 11/16/2021 External Order formerly [facility] Outside, Provide r Results Molecular Diagnostic s [address] [place] [address] Social History Tobacco Use Types Packs/Day Years [...] Organization Address [facility] Code Phon e Number BREEZE PFT NON-INTERFACED (ONBASE SCANS) (ABNORMAL) Lipid Profile (11/16/2021 7:12 PM CDT) [facility] Method Time Signature Cholesterol 98 90 [...] LAB - BLOOD ORDERABLES Performing Organization Address City/[facility]/ZIP Code Phon e Number BREEZE PFT NON-INTERFACED (ONBASE SCANS) (ABNORMAL) CBC with Platelets & Differential (11/16/2021 4:35 PM CDT) [facility] Method Time Signature WBC Count 6.8 [...] LAB - BLOOD ORDERABLES Performing Organization Address City/[facility]/ZIP Code Phon e Number BREEZE PFT NON-INTERFACED (ONBASE SCANS) documented in this encounter Visit Diagnoses Not on filedocumented in this encounter Care Teams Lawn Specialist Relationship Specialty Start Date End Date Momo Forbes PCP - General Family Practice 01/02/14 [facility] [address] [place] [address] Joseph Quintana, Assigned Nephrology 03/29/21 MD Provider 717 [facility] 353 [facility] [address] [place], [place] [address] documented as of this encounter
--- OUTSIDE RECORDS SUMMARY | 2022-04-14 11:03 | XMS_ITS | Clinical Summary ---
:1950 Author Organization [place] Address [facility] [place] [address] Care Team Providers Name Role Phone Momo [...] Problem list name updated by automated p CiRBAess. Provider to review Gout 12/02/2011 Peripheral neuropathy 12/02/2011 Diabetic retinopathy 12/02/2011 HTN, kidney transplant related 12/02/2011 Overview: Problem list name updated by automated p CiRBAess. Provider to review DM (diabetes mellitus), type 2 12/02/2011 History of tobacco use 12/02/2011 Thrombocytopenia 12/02/2011 Malaise and fatigue 12/02/2011 Overview: Problem list name updated by automated p CiRBAess. Provider to review Depression Resolved Problems Problem [...] Encounters Date Type Specialty Care Team Description 04/13/2022 Telephone Solid Organ Gretta Peacock RN Voicemail Transplant 01/21/2022 Telephone Solid Organ Gretta Peacock RN [...] Comments Blood Pressure 169/76 10/09/2019 2:35 PM FARM MANAGEMENT SUPERVISOR Pulse 67 10/09/2019 2:35 PM FARM MANAGEMENT SUPERVISOR Temperature 36.5 ??C (97.7 ??F) 10/17/2018 1:54 PM FARM MANAGEMENT SUPERVISOR Respiratory Rate 18 10/25/2016 4:39 PM FARM MANAGEMENT SUPERVISOR Oxygen Saturation 95% 10/09/2019 2:35 PM FARM MANAGEMENT SUPERVISOR Inhaled Oxygen Concentration - - Weight 132.5 kg (292 lb 1.6 oz) 10/09/2019 2:35 PM FARM MANAGEMENT SUPERVISOR Height 182.9 cm (6') 10/10/2017 2:25 PM FARM MANAGEMENT SUPERVISOR Body Mass Index 39.62 10/10/2017 2:25 PM FARM MANAGEMENT SUPERVISOR Plan of Treatment Health Maintenance Due Date [...] this topic Medical Devices Explanted Type Area Curb Supervisor Device Shelf Model / Identifier Expiration Serial / Date Lot Stent Ureteral Childress Renal Transplant [id number] Right: [employer] 11/19/2016 [id number] / Implanted: Qty: 1 on 02/02/2014 by Migel Viveros MD at [facility] [employer] / Explanted: Qty: 1 on 04/01/2014 by Celina Helton MD at [facility] [id number] Procedures Procedure Name Priority Date/Time Associated Comments [...] Number JESSICA PFT NON-INTERFACED (ONBASE SCANS) (ABNORMAL) Protein random [...] NEGATIVE NON-INTERFAC (External) ED (ONBASE SCANS) Specific Irving 1.010 1.005 - NON-INTERFAC Urine (External) 1.030 [...] e Number JESSICA PFT NON-INTERFACED (ONBASE SCANS) from Last 3 Months Insurance Payer Benefit Plan / Subscriber ID Effective Phone Address T ype Group Dates MEDICARE MEDICARE [id number] 2011-Prese [phone] ATTN CLAI MS Medicare nt 40 [address] [place] [address] BCBS BCBS OF [place] [id number] 2016-Prese [phone] [address] [address] Indemnity nt 00 [place] [address] Diego Guthrie Personal/Family Self 1950 [address]Home) [place] [address] Advance Directives For more information, please contact: [phone] Latest Code Status on File Code Status Date Activated Date Inactivated Comments Full Code 04/01/2014 9:03 AM Full Code 02/08/2014 7:12 AM 04/01/2014 9:03 AM Full Code 02/03/2014 12:56 AM 02/08/2014 7:12 AM Care Teams Online Merchandising Coordinator Relationship Specialty Start Date End Date Momo Forbes PCP - General Family Practice 01/02/14 [facility] [address] [place] [address] Joseph Quintana, Assigned Nephrology 03/29/21 MD Provider [address] [place] [address] [address] [place] [address]
--- OUTSIDE RECORDS SUMMARY | 2022-04-14 11:03 | XMS_ITS | Encounter Summary ---
:1950 Author Organization [place] Address formerly [facility]0 [facility] [place] [address] Care Team Providers Name Role Phone Momo Forbes Primary Care Provider Joseph Quintana MD Unavailable Reason for Visit Reason Onset Date Comments Transplant 11/24/2021 Encounter Details Date Type Department Care Team Description 11/24/2021 Telephone [facility] Transplant Obdulia Peacock, earring maker Clinic [address] [place] [phone] Social History Tobacco Use Types Packs/Day [...] had labs drawn ~one week ago at [facility], however results have not beenfaxed to [facility]. PLAN: call lab to have results faxed OUTCOME: New labs orders sent. Most recent bmp and cbc requested from october 2021. Tac and UPC due. Left detailed message with instructions to obtain tacrolimus trough level and UPC at earliest convenience. Asked for CB to confirm understanding. Gretta Peacock earring makerWringer Operator [phone] Telephone Encounter - Azael Rodriguez - 11/24/2021 3:32 PM CDT Patient called to touch base with the RNCC regarding some questions. documented in this encounter Plan of Treatment Not on filedocumented as of this encounter Visit Diagnoses Not on filedocumented in this encounter Care Teams Refuse Collector Supervisor Relationship Specialty Start Date End Date Momo Forbes PCP - General Family Practice 01/02/14 [facility] [address] [place] [address] Joseph Quintana, Assigned Nephrology 03/29/21 MD Provider [address] [place] [address] [address] [place], [place] [address] documented as of this encounter
--- OUTSIDE RECORDS SUMMARY | 2022-04-14 11:03 | XMS_ITS | Encounter Summary ---
:1950 Author Organization [place] Address [facility] [place] [address] Care Team Providers Name Role Phone Momo Forbes Primary Care Provider Joseph Quintana MD Unavailable Reason for Visit Reason Onset Date Comments Transplant Lab 12/10/2021 Encounter Details Date Type Department Care Team Description 12/10/2021 Telephone [facility] Transplant Mati Recinos RN Transplant Lab Clinic [address] [place] [address] [phone] Social History Tobacco Use Types Packs/Day [...] filedocumented in this encounter Care Teams Chemical Maker Relationship Specialty Start Date End Date Momo Forbes PCP - General Family Practice 01/02/14 [facility] [address] [place] [address] Joseph Quintana, Assigned Nephrology 03/29/21 MD Provider 717 [facility] 353 [facility] [address] [place] [address] documented as of this encounter
--- OUTSIDE RECORDS SUMMARY | 2022-04-14 11:03 | XMS_ITS | Encounter Summary ---
:1950 Author Organization [place] Address [address] [place] [address] Care Team Providers Name Role Phone Momo Forbes Primary Care Provider Joseph Quintana MD Unavailable Encounter Details Date Type Department Care Team Description 01/19/2022 External Order [facility] Outside, Provide r Results Molecular Diagnostic s [address] [place] [address] Social History Tobacco Use Types Packs/Day Years [...] UA with Microscopic (01/19/2022 11:16 AM CDT) [facility] gist Method Time Signature Color Urine YEL YELLOW NON-INTERFAC (External) ED (ONBASE SCANS) Appearance Urine CLEAR CLEAR NON-INTERFAC (External) ED (ONBASE SCANS) Glucose Urine 2+ NEGATIVE NON-INTERFAC (External) ED (ONBASE SCANS) Bilirubin Urine NEG NEGATIVE NON-INTERFAC (External) ED (ONBASE SCANS) Ketones Urine NEG NEGATIVE NON-INTERFAC (External) ED (ONBASE SCANS) Specific Eva 1.010 1.005 - NON-INTERFAC Urine (External) 1.030 [...] on filedocumented in this encounter Care Teams Finishing Supervisor Plastic Sheets Relationship Specialty Start Date End Date Momo Forbes PCP - General Family Practice 01/02/14 [facility] [address] [place] [address] Joseph Quintana, Assigned Nephrology 03/29/[address] [place] [address] [address] [place], [place] [address] documented as of this encounter
--- OUTSIDE RECORDS SUMMARY | 2022-04-14 11:03 | XMS_ITS | Encounter Summary ---
:1950 Author Organization [place] Address [facility] [place] [address] Care Team Providers Name Role Phone Momo Forbes Primary Care Provider Joseph Quintana MD Unavailable Reason for Visit Reason Onset Date Comments Transplant 01/21/2022 Hyperglycemia, eleva moni [facility] Encounter Details Date Type Department Care Team Description 01/21/2022 Telephone [facility] Gretta Peacock RN Trans plant Transplant Clinic (Hyperglycemia, elevated [address] [facility]) [place] [address] Social History Tobacco Use Types [...] 12:07 PM CDT ISSUE: trend up in [facility], hyperglycemia OUTCOME: phone call attempted X3. Will send letter via mail. Gretta Peacock RN Chief Medical Director [phone] documented in this encounter Plan of Treatment Not on filedocumented as of this encounter Visit Diagnoses Not on filedocumented in this encounter Care Teams Managing Partner Digital Content Marketing [place] Relationship Specialty Start Date End Date Momo Forbes PCP - General Family Practice 01/02/14 [facility] [address] [place] [address] Joseph Quintana, Assigned Nephrology 03/29/21 MD Provider [address] [place] [address] [address] [place] [address] documented as of this encounter
--- OUTSIDE RECORDS SUMMARY | 2022-04-14 11:03 | XMS_ITS | Encounter Summary ---
:1950 Author Organization [place] Address [facility] [place] [address] Care Team Providers Name Role Phone Momo Forbes Primary Care Provider Joseph Quintana MD Unavailable Reason for Visit Reason Onset Date Comments Transplant 12/02/2021 Encounter Details Date Type Department Care Team Description 12/02/2021 Telephone [facility] Transplant Obdulia Peacock, electric knife operator Clinic [address] [place] [address] [phone] Social History Tobacco Use Types Packs/Day [...] to confirm he received message. Gretta Peacock electric knife operatorSupply Chain Vice President [phone] ADDENDUM: left message for patient stating he has active orders at preferred lab. Asked to please obtain a full set of transplant labs as soon as possible. Gretta Peacock electric knife operatorSupply Chain Vice President [phone] documented in this encounter Plan of Treatment Not on filedocumented as of this encounter Visit Diagnoses Not on filedocumented in this encounter Care Teams Boat Master Relationship Specialty Start Date End Date Momo Forbes PCP - General Family Practice 01/02/14 [facility] [address] [place] [address] Joseph Quintana, Assigned Nephrology 03/29/[address] [place] [address] [address] [place] [address] documented as of this encounter
--- OUTSIDE RECORDS SUMMARY | 2022-04-14 11:03 | XMS_ITS | Encounter Summary ---
:1950 Author Organization [place] Address [address] [place] [address] Care Team Providers Name Role Phone Momo Forbes Primary Care Provider Joseph Quintana MD Unavailable Encounter Details Date Type Department Care Team Description 12/09/2021 External Order [facility] Outside, Provide r Results Molecular Diagnostic s [address] [place] [address] Social History Tobacco Use Types Packs/Day Years [...] CDT Verified by Praful Huff on 2021. Orlnado Richey MD LAB - URINE ORDERABLES Performing [...] on filedocumented in this encounter Care Teams Cardiac Rehabilitation Specialist Relationship Specialty Start Date End Date Momo Forbes PCP - General Family Practice 01/02/14 [facility] [address] [place] [address] Joseph Quintana, Assigned Nephrology 03/29/21 Provider 717 [facility] 353 [facility] [address] [place] [address] documented as of this encounter
--- OUTSIDE RECORDS SUMMARY | 2022-04-14 11:04 | XMS_ITS | Encounter Summary ---
:1950 Author Organization [place] Address [facility] [place] [address] Care Team Providers Name Role Phone Momo Forbes A Primary Care Provider Reason for Visit Reason Comments Clinic Care Coordination - Follow-up Encounter Details Date Type Department Care Team Description 10/25/[address] [facility] Sejal Rodriguez Care Nephrology Clinic BOGDAN Llanos Coordination - [place] [phone] Follow-up [address] [facility] (Work) [place] [address] Social History Tobacco Use Types [...] back (follow up BP). Romi Rodriguez RN E DIALYSIS REGISTERED NURSE Romi Rodriguez RN - 10/25/2019 10:15 AM [...] further questions or concerns. Romi Rodriguez, BOGDAN E DIALYSIS REGISTERED NURSE documented in this encounter Plan of Treatment Not on filedocumented as of this encounter Visit Diagnoses Not on filedocumented in this encounter Care Teams Lock Tender Relationship Specialty Start Date End Date Momo Forbes PCP - General Family Practice 01/02/14 [facility] [address] [place] [address] documented as of this encounter
--- OUTSIDE RECORDS SUMMARY | 2022-04-14 11:04 | XMS_ITS | Encounter Summary ---
:1950 Author Organization [place] Address [facility] [place] [address] Care Team Providers Name Role Phone Momo Forbes A Primary Care Provider Reason for Visit Reason Onset Date Comments Transplant 02/03/2021 spoke w pt and donna vallejoed annual neph appt on 03/05/21 Encounter Details Date Type Department Care Team Description 02/03/2021 Telephone [facility] Barbie Ugaldelanlynda (spoke w pt Transplant Clinic BOGDAN Nam and confirmed annual [address] [facility] neph appt on 03/05/21) [place] [address] Social History Tobacco Use Types [...] on filedocumented in this encounter Care Teams Land Management Forester Relationship Specialty Start Date End Date Momo Forbes PCP - General Family Practice 01/02/14 [facility] [address] [place] [address] documented as of this encounter
--- OUTSIDE RECORDS SUMMARY | 2022-04-14 11:04 | XMS_ITS | Encounter Summary ---
:1950 Author Organization [place] Address [address] [place] [address]. [place] [address] Care Team Providers Name Role Phone Momo Forbes Primary Care Provider Encounter Details Date Type Department Care Team Description 09/26/2019 Medical Correspondence [facility] Scan, BLOOD GLUCOSE LOG Health Info Mgmt Non-Provider Srvcs [address] [place] [address] Social History Tobacco Use Types Packs/Day [...] on filedocumented in this encounter Care Teams Genetic Physician Relationship Specialty Start Date End Date Momo Forbes PCP - General Family Practice 01/02/14 [facility] [address] [place] [address] documented as of this encounter
--- OUTSIDE RECORDS SUMMARY | 2022-04-14 11:04 | XMS_ITS | Encounter Summary ---
:1950 Author Organization [place] Address [address] [place] [address]. [place] [address] Care Team Providers Name Role Phone Momo Forbes A Primary Care Provider Reason for Visit Reason Onset Date Comments Transplant Immunosuppression Management 08/11/2020 Encounter Details Date Type Department Care Team Description 08/11/2020 Pending Sale To [facility] Barbie Ugalde [facility] nsplant Transplant Clinic BOGDAN Nam Immunosuppression [address] [place] [address] [place] [address] Social History Tobacco Use Types [...] Barbie Ugalde RN - 08/11/2020 4:16 PM TOOL MACHINE SET UP OPERATOR ISSUE: Tacrolimus IR level 11.7 on 08/08/20, [...] Organ Transplant, Post Kidney and Pancreas Transplant Manager Food [phone] OUTCOME: Spoke with patient, they confirm accurate trough level and current dose 2 mg BID. Patient confirmed dose change to 1.5 mg BID and to repeat labs in 1 weeks. Orders sent to preferred pharmacy for dose change and lab for repeat labs. Patient voiced understanding of plan. 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
--- OUTSIDE RECORDS SUMMARY | 2022-04-14 11:04 | XMS_ITS | Encounter Summary ---
:1950 Author Organization [place] Address [facility]0 [facility] [place] [address] Care Team Providers Name Role Phone Momo Forbes A Primary Care Provider Encounter Details Date Type Department Care Team Description 01/30/2021 Telephone [facility] Transplant Viv Torres, BOGDAN [place] [phone] Social History Tobacco Use Types Packs/Day [...] not included. Message Received: Today Beny Staton, [facility] Barbie Ugalde, RN Diego has not ordered tacro 0.5mg in over a year. ??He just ordered 1mg today but not the 0.5mg. Beny Staton [facility] Specialty Pharmacist [phone] SOCIAL SECURITY BENEFITS INTERVIEWER task: Can you please call Diego to find out what dose of tacrolimus he is taking and notify coordinator if different than what is prescribed. Recommend repeat tacrolimus level for previously elevated level 7.3, goal 4-6. Thank you, Barbie Ugalde RN, BSN Solid Organ Transplant, Post Kidney and Pancreas Transplant Timber Sizer Operator [phone] Telephone Encounter - Viv Torres RN - [...] transplant documented in this encounter Care Teams Sleever Relationship Specialty Start Date End Date Momo Forbes PCP - General Family Practice 01/02/14 [facility] [address] [place] [id number] documented as of this encounter
--- OUTSIDE RECORDS SUMMARY | 2022-04-14 11:04 | XMS_ITS | Encounter Summary ---
:1950 Author Organization [place] Address [facility] [place] [address] Care Team Providers Name Role Phone Momo Forbes Primary Care Provider Joseph Quintana MD Unavailable Encounter Details Date Type Department Care Team Description 05/26/2020 External Order [facility] Outside, Provider Results Transplant Clinic [address] [place] [phone] Social History Tobacco Use Types Packs/Day [...] filedocumented in this encounter Care Teams Manager Distribution Center Relationship Specialty Start Date End Date Momo Forbes PCP - General Family Practice 01/02/14 [facility] [address] [place] [address] Joseph Quintana, Assigned Nephrology 03/29/21 MD Provider 7 [facility] 353 [facility] [address] [place] [address] documented as of this encounter
--- OUTSIDE RECORDS SUMMARY | 2022-04-14 11:04 | XMS_ITS | Encounter Summary ---
:1950 Author Organization [place] Address [facility] [place] [address] Care Team Providers Name Role Phone Momo Forbes Primary Care Provider Encounter Details Date Type Department Care Team Description 10/09/2019 Orders Only [facility] Transplant Mati Recinos RN Clinic [address] [place], [place] [phone] Social History Tobacco Use Types Packs/Day [...] CST Orders updated. Faxed to new lab: [facility] T [phone] F [phone] RECOVERER documented in this encounter Plan of Treatment Not on filedocumented as of this encounter Visit Diagnoses Not on filedocumented in this encounter Care Teams Firer Watertender Relationship Specialty Start Date End Date Forbes, Ton PCP - General Family Practice 01/02/14 [facility] [address] [place] [address] documented as of this encounter
--- OUTSIDE RECORDS SUMMARY | 2022-04-14 11:04 | XMS_ITS | Encounter Summary ---
:1950 Author Organization [place] Address [address] [place] [address]. [place] [address] Care Team Providers Name Role Phone Momo [...] on filedocumented in this encounter Care Teams Indirect Sales Representative Relationship Specialty Start Date End Date Momo Forbes PCP - General Family Practice 01/02/14 [facility] [address] [place] [address] documented as of this encounter
--- OUTSIDE RECORDS SUMMARY | 2022-04-14 11:04 | XMS_ITS | Encounter Summary ---
:1950 Author Organization [place] Address [address] [address] Care Team Providers Name Role Phone Forbes, Ton Primary Care Provider Reason for Visit Reason Comments RECHECK Post kid tx f/u Encounter Details Date Type Department Care Team Description 10/09/2019 [facility] [address] [facility] [address] [place] [address] Kidney transplanted (Primary Dx); Nephrology Clinic , Kidney/Pancreas Recipient Need for influenza vaccination; [place] HTN, kidney transplant relat ed; 909 [facility] Immunosupp ression (H); SE Skin cancer screening; [place]ovit[place] sis [place] [phone] Social History Tobacco [...] Comments Blood Pressure 169/76 10/09/2019 2:35 PM INDUSTRIAL MAINTENANCE MANAGER Pulse 67 10/09/2019 2:35 PM INDUSTRIAL MAINTENANCE MANAGER Temperature - - Respiratory Rate - - Oxygen Saturation 95% 10/09/2019 2:35 PM INDUSTRIAL MAINTENANCE MANAGER Inhaled Oxygen Concentration - - Weight 132.5 kg (292 lb 1.6 oz) 10/09/2019 2:35 PM INDUSTRIAL MAINTENANCE MANAGER Height - - Body Mass Index 39.62 10/10/2017 2:25 PM INDUSTRIAL MAINTENANCE MANAGER documented in this encounter Progress Notes Shiva [...] being entered into the official medical record. STRIAL MAINTENANCE MANAGER documented in this encounter Nursing Notes Josseline Recinos RN - 10/09/2019 2:45 PM CST Diego Sosa Siricyndie was seen today in clinic by this story writer. Medications, lab orders, lab frequency,and necessary follow up discussed with patient. Patient was provided with a copy of the current lab letter. Patient voiced understanding and agreement of education and plan. Josseline Recinos RN STRIAL MAINTENANCE MANAGER Jeanette Finley CMA - 10/09/2019 2:45 PM CST Chief Complaint Patient presents with ??? RECHECK Post kid tx f/u Blood pressure (!) 169/76, pulse 67, weight 132.5 kg (292 lb 1.6 oz), SpO2 95 %. Jeanette Finley CMA STRIAL MAINTENANCE MANAGER documented in this encounter Plan of Treatment [...] deficiency documented in this encounter Care Teams Gastroenterologist Relationship Specialty Start Date End Date Momo Forbes PCP - General Family Practice 01/02/14 [facility] [address] [place] [address] documented as of this encounter
--- OUTSIDE RECORDS SUMMARY | 2022-04-14 11:04 | XMS_ITS | Encounter Summary ---
:1950 Author Organization [place] Address [facility] [place] [address] Care Team Providers Name Role Phone Momo Forbes Primary Care Provider Reason for Visit Reason Onset Date Comments Refill Request 03/18/2020 Mycophenolate and Pr ograf 1mg Encounter Details Date Type Department Care Team Description 03/18/2020 Refill [facility] Joseph Quintana Refill R equest Nephrology Clinic MD Herminio (Mycophenolate and [place] [address] [place] [address] SE Prograf 1mg) 909 [facility] 353 [facility] [address] [place], [place] [phone] Social History Tobacco Use Types Packs/Day Years [...] transplant documented in this encounter Care Teams Brick Extruder Operator Relationship Specialty Start Date End Date Momo Forbes PCP - General Family Practice 01/02/14 [facility] [address] [place] [address] documented as of this encounter
--- OUTSIDE RECORDS SUMMARY | 2022-04-14 11:04 | XMS_ITS | Encounter Summary ---
:1950 Author Organization [place] Address [facility] [place] [address] Care Team Providers Name Role Phone Momo Forbes Primary Care Provider Joseph Quintana MD Unavailable Encounter Details Date Type Department Care Team Description 07/08/2020 External Order [facility] Outside, Provider Results Transplant Clinic [address] [place] [phone] Social History Tobacco Use Types Packs/Day [...] 9:23 AM Results f or this RESULTS SALES MANAGER [employer] procedure are i n the results section. documented in this encounter Results External Lab Results (07/08/2020 9:23 AM SALES MANAGER [employer]) Analysis Performed At Patho logist Time Signature Scan Lab View Image LABDE SCAN Results (External) Comment: HLA Antibody Screen, Class I an d Class II Specimen (Source) Anatomical Collection Method Collection Time Re ceived Time Location / / Volume Laterality 07/08/2020 9:23 AM SALES MANAGER [employer] Narrative [facility] - 07/16/2020 2:42 PM SALES MANAGER [employer] Verified by Ruperto Pepper on 07/15/20 20. Patient Reported LABORATORY Performing Organization Address City/State/ZIP Code Phon e Number [facility] LABDE SCAN documented in this encounter Visit Diagnoses Not on filedocumented in this encounter Care Teams Mill Beam Fitter Relationship Specialty Start Date End Date Momo Forbes PCP - General Family Practice 01/02/14 [facility] [address] [place] [address] Joseph Quintana, Assigned Nephrology 03/29/21 MD Provider [address] [place] [address] 1932 [place], [place] [address] documented as of this encounter
--- OUTSIDE RECORDS SUMMARY | 2022-04-14 11:04 | XMS_ITS | Encounter Summary ---
:1950 Author Organization [place] Address [facility]0 [facility] [place] [address] Care Team Providers Name Role Phone Momo Forbes Primary Care Provider Joseph Quintana MD Unavailable Encounter Details Date Type Department Care Team Description 05/26/2020 External Order [facility] Outside, Provider Results Transplant Clinic [address] [place] [phone] Social History Tobacco Use Types Packs/Day [...] platelets differential (05/26/2020 10:25 AM CDT) [facility] Method Time Signature WBC Count [...] filedocumented in this encounter Care Teams Construction Cost Estimator Relationship Specialty Start Date End Date Momo Forbes PCP - General Family Practice 01/02/14 [facility] [address] [place] [address] Joseph Quintana, Assigned Nephrology 03/29/21 MD Provider 717 [facility] 353 [facility] 1932 [place], [place] [address] documented as of this encounter
--- OUTSIDE RECORDS SUMMARY | 2022-04-14 11:04 | XMS_ITS | Encounter Summary ---
:1950 Author Organization [place] Address [facility] [place] [address] Care Team Providers Name Role Phone Momo Forbes Primary Care Provider Joseph Quintana MD Unavailable Encounter Details Date Type Department Care Team Description 02/02/2021 External Order [facility] Outside, Provider Results Transplant Clinic [address] [place] [phone] Social History Tobacco Use Types Packs/Day [...] by Cassie Florian on 02/04/2021. Performed by: [facility] [address] [place], [place] ??[phone] Patient Reported LABORATORY Performing Organization Address City/State/ZIP Code Phon e Number [facility] COVID-19 EXTERNAL COVID-[address] RESULTS Result Scanned into Patient Record by Shutl Refer to Result Comment/Narrative for exact performing laboratory documented in this encounter Visit Diagnoses Not on filedocumented in this encounter Care Teams Breaker Layer Relationship Specialty Start Date End Date Momo Forbes PCP - General Family Practice 01/02/14 [facility] [address] [place] [address] Joseph Quintana, Assigned Nephrology 03/29/21 MD Provider 717 [facility] 353 [facility] [address] [place] [address] documented as of this encounter
--- OUTSIDE RECORDS SUMMARY | 2022-04-14 11:04 | XMS_ITS | Encounter Summary ---
:1950 Author Organization [place] Address [facility]0 [facility] [place] [address] Care Team Providers Name Role Phone Momo Forbes A Primary Care Provider Reason for Visit Reason Onset Date Comments Transplant Lab 05/28/2020 Encounter Details Date Type Department Care Team Description 05/28/[address] [facility] Barbie Ugalde Tra nsplant Lab Transplant Clinic BOGDAN Nam [address] [place] [address] [phone] Social History Tobacco Use Types Packs/Day [...] mg/dL on 05/26/20 at 1025 collected at [facility] [phone] (Phone) CBC appears as expected Missing BMP [...] filedocumented in this encounter Care Teams Patient Accounts Specialist Relationship Specialty Start Date End Date Momo Forbes PCP - General Family Practice 01/02/14 [facility] [address] [place] [address] documented as of this encounter
--- OUTSIDE RECORDS SUMMARY | 2022-04-14 11:04 | XMS_ITS | Encounter Summary ---
:1950 Author Organization [place] Address [facility] [place] [address] Care Team Providers Name Role Phone Momo Forbes Primary Care Provider Joseph Quintana MD Unavailable Encounter Details Date Type Department Care Team Description 07/08/2020 External Order [facility] Outside, Provider Results Transplant Clinic [address] [place] [phone] Social History Tobacco Use Types Packs/Day [...] 9:23 AM R esults for this DIFFERENTIAL FIRE CREW SPECIALIST procedure are i n the results section. TACROLIMUS BY TANDEM Routine 07/08/2020 9:23 AM R esults for this MASS SPECTROMETRY FIRE CREW SPECIALIST procedure are in the results section. PROTEIN RANDOM URINE Routine 07/08/2020 9:23 AM R esults for this FIRE CREW SPECIALIST procedure are i n the results section. HEMOGLOBIN A1C Routine 07/08/2020 9:23 AM Results for this FIRE CREW SPECIALIST procedure are i n the results section. HEMOGLOBIN A1C Routine 07/08/2020 9:23 AM Results for this FIRE CREW SPECIALIST procedure are i n the results section. BASIC METABOLIC PANEL Routine 07/08/2020 9:23 AM Results for this FIRE CREW SPECIALIST procedure are i n the results section. documented in this encounter Results (ABNORMAL) Protein random urine with Creat Ratio (07/08/2020 9:23 AM FIRE CREW SPECIALIST) Analysis Performed At Patho logist Time Signature Protein Random 73 mg/dL LABDE SCAN Urine (External) Creatinine 65 mg/dL LABDE SCAN Urine mg/dL (External) Protein Total 1.12 (H) 0 - 0.19 LABDE SCAN Ur per Cr (External) Specimen (Source) Anatomical Collection Method Collection Time Re ceived Time Location / / Volume Laterality Urine specimen 07/08/2020 9:23 AM (specimen) FIRE CREW SPECIALIST Narrative [facility] - 07/11/2020 11:13 AM FIRE CREW SPECIALIST Verified by Praful Huff on 2019. Patient Reported LAB - URINE ORDERABLES Performing Organization Address City/State/ZIP Code Phon e Number [facility] LABDE SCAN (ABNORMAL) Hemoglobin A1c (07/08/2020 9:23 AM FIRE CREW SPECIALIST) Analysis Performed At Patho logist Time Signature Hemoglobin A1C 12.3 (H) 0 - 5.6 % LABDE SCAN (External) Specimen (Source) Anatomical Collection Method Collection Time Re ceived Time Location / / Volume Laterality Blood specimen 07/08/2020 9:23 AM (specimen) FIRE CREW SPECIALIST Narrative [facility] - 07/11/2020 11:13 AM FIRE CREW SPECIALIST Verified by Praful Huff on 2019. Patient Reported LAB - BLOOD ORDERABLES Performing Organization Address City/State/ZIP Code Phon e Number [facility] LABDE SCAN Tacrolimus level (07/08/2020 9:23 AM FIRE CREW SPECIALIST) P athologist Signature Tacrolimus(FK- 2.2 See scanned LABDE SCAN 506) report ng/mL (External) Specimen (Source) Anatomical Collection Method Collection Time Re ceived Time Location / / Volume Laterality Blood specimen 07/08/2020 9:23 AM (specimen) FIRE CREW SPECIALIST Narrative [facility] - 07/11/2020 11:13 AM FIRE CREW SPECIALIST Verified by Praful Huff on 2019. Patient Reported LAB - BLOOD ORDERABLES Performing Organization Address City/State/ZIP Code Phon e Number [facility] LABDE SCAN (ABNORMAL) Hemoglobin A1c (07/08/2020 9:23 AM FIRE CREW SPECIALIST) Analysis Performed At [facility] logist Time Signature Hemoglobin A1C 12.3 (H) 0 - 5.6 % LABDE SCAN (External) Specimen (Source) Anatomical Collection Method Collection Time Re ceived Time Location / / Volume Laterality Blood specimen 07/08/2020 9:23 AM (specimen) FIRE CREW SPECIALIST Narrative [facility] - 07/09/2020 11:03 AM FIRE CREW SPECIALIST Verified by Andrade Barajas on 07/09/2020. Patient Reported LAB - BLOOD ORDERABLES Performing Organization Address [facility] Phon e Number [facility] LABDE SCAN (ABNORMAL) Basic metabolic panel (07/08/2020 9:23 AM FIRE CREW SPECIALIST) Analysis Performed At [facility] logist Time Signature Calcium 10.1 8.4 - [...] Laterality Blood specimen 07/08/2020 9:23 AM (specimen) FIRE CREW SPECIALIST Narrative [facility] - 07/09/2020 11:02 AM FIRE CREW SPECIALIST Verified by Andrade Barajas on 07/09/2020. Patient Reported LAB - BLOOD ORDERABLES Performing Organization Address City/[facility]/ZIP Code Phon e Number [facility] LABDE SCAN (ABNORMAL) CBC with platelets differential (07/08/2020 9:23 AM FIRE CREW SPECIALIST) [facility] gist Method Time Signature WBC Count 4.32 [...] Laterality Blood specimen 07/08/2020 9:23 AM (specimen) FIRE CREW SPECIALIST Narrative [facility] - 07/09/2020 10:52 AM FIRE CREW SPECIALIST Verified by Praful Huff on 2019. Patient Reported LAB - BLOOD ORDERABLES Performing Organization Address City/State/ZIP Code Phon e Number [facility] LABDE SCAN documented in this encounter Visit Diagnoses Not on filedocumented in this encounter Care Teams Turning Lathe Tender Relationship Specialty Start Date End Date Momo Forbes PCP - General Family Practice 01/02/14 [facility] [address] [place] [address] Joseph Quintana, Assigned Nephrology 03/29/21 MD Provider [address] [place] [address] 1932 [place], [place] [address] documented as of this encounter
--- OUTSIDE RECORDS SUMMARY | 2022-04-14 11:04 | XMS_ITS | Encounter Summary ---
:1950 Author Organization [place] Address [facility] [place] [address] Care Team Providers Name Role Phone Momo Forbes A Primary Care Provider Reason for Visit Reason Onset Date Comments Transplant Lab 01/29/2020 overdue labs Encounter Details Date Type Department Care Team Description 01/29/[address] [facility] Barbie Ugalde Tra nsplant Lab Transplant Clinic BOGDAN Nam (overdue labs) [address] [place] [phone] Social History Tobacco Use Types Packs/Day [...] a kit for blood work sent to [facility] as requested. Explained kits are no longer being used for drug levels but new orders could be sent to lab if needed. [facility] [phone] (Phone) [facility] has annual order on file sent September 2019 and can fax to their new [facility] location that opened 2 weeks ago. Patient seen provider in [facility] who meryl Hemoglobin A1C and BMP butnot [...] filedocumented in this encounter Care Teams Clinical Case Manager Relationship Specialty Start Date End Date Momo Forbes PCP - General Family Practice 01/02/14 [facility] [address] [place] [address] documented as of this encounter
--- OUTSIDE RECORDS SUMMARY | 2022-04-14 11:04 | XMS_ITS | Encounter Summary ---
:1950 Author Organization [place] Address [address] [place] [address]. [place] [address] Care Team Providers Name Role Phone Momo [...] filedocumented in this encounter Care Teams Supervisor Prepress Relationship Specialty Start Date End Date Momo Forbes PCP - General Family Practice 01/02/14 [facility] [address] [place] [address] documented as of this encounter
--- OUTSIDE RECORDS SUMMARY | 2022-04-14 11:04 | XMS_ITS | Encounter Summary ---
:1950 Author Organization [place] Address [facility] [address] Care Team Providers Name Role Phone Momo Forbes Primary Care Provider Joseph Quintana MD Unavailable Reason for Visit Reason Onset Date Comments Medication Refill Refill Request 08/20/2021 Encounter Details Date Type Department Care Team Description 08/20/2021 Refill [facility] Joseph Quintana on Refill; Nephrology Clinic MD Herminio Refill Request [address] 909 [facility] 353 [facility] 1932 [place], [place] [phone] Social History Tobacco Use Types Packs/Day Years [...] transplant documented in this encounter Care Teams Sand Screener Operator Relationship Specialty Start Date End Date Momo Forbes PCP - General Family Practice 01/02/14 [facility] [address] [place] [address] Joseph Quintana, Assigned Nephrology 03/29/21 MD Provider [address] [place] [address] 1932 [place] [address] documented as of this encounter
--- OUTSIDE RECORDS SUMMARY | 2022-04-14 11:04 | XMS_ITS | Encounter Summary ---
:1950 Author Organization [place] Address [address] [place] [address] Care Team Providers Name Role Phone Momo Forbes Primary Care Provider Joseph Quintana MD Unavailable Reason for Visit Reason Onset Date Comments Transplant Lab 05/04/2021 Encounter Details Date Type Department Care Team Description 05/04/2021 Telephone [facility] Transplant Krys Garcia, Transplant Lab Clinic RN [address] [place] [phone] Social History Tobacco Use Types [...] maroon colored stools. he had colonoscopy with [place] about a year ago. Appears in CareEverywhere colonoscopy was 03/20/2015. Latrell denies infectious symptoms currently but reports he had R foot surgery at [facility] this last winter for diabetic foot ulcer. Infection in bottom of foot; laid up since Sep. Pretty well healed except a little speck. Follows up with Dr. Chatterjee. Will check iron panel on next labs. Orders sent. Barbei Ugalde RN, BSN Solid Organ Transplant, Post Kidney and Pancreas Transplant Tools And Parts Attendant [phone] Telephone Encounter - Krys Garcia RN - 05/04/2021 8:09 AM CDT ISSUE: Falling hemoglobin. documented in this encounter Plan of Treatment Not on filedocumented as of this encounter Visit Diagnoses Not on filedocumented in this encounter Care Teams Clinical Statistical Programmer Relationship Specialty Start Date End Date Momo Forbes PCP - General Family Practice 01/02/14 [facility] [address] [place] [address] Joseph Quintana, Assigned Nephrology 03/29/21 MD Provider 717 [facility] 353 [facility] [address] [place] [address] documented as of this encounter
--- OUTSIDE RECORDS SUMMARY | 2022-04-14 11:04 | XMS_ITS | Encounter Summary ---
:1950 Author Organization [place] Address [facility] [address] Care Team Providers Name Role Phone ForbesMomo prakash A Primary Care Provider Reason for Visit Reason Onset Date Comments Transplant 07/11/2020 Encounter Details Date Type Department Care Team Description 07/11/2020 Telephone [facility] BOGDAN Nam [address] [place] [address] [phone] Social History Tobacco Use Types Packs/Day [...] Barbie Ugalde RN - 07/11/2020 2:11 PM CONCRETE STONE FABRICATING SUPERVISOR ISSUE: Potassium 5.2 on 07/08/20. PLAN: Assess for high dietary intake of potassium. Encouraged Diego to reduce the amount of bananas and potatoes he admitted to eating high amounts of. OUTCOME: Please have pt repeat BMP in 1 week. Orders sent RETE STONE FABRICATING SUPERVISOR Telephone Encounter - Barbie Ugalde RN - 07/11/2020 1:41 PM CONCRETE STONE FABRICATING SUPERVISOR ISSUE: Tacrolimus IR level 2.2 on 07/08/20 [...] for repeatlabs. Patient voiced understanding of plan. 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
--- OUTSIDE RECORDS SUMMARY | 2022-04-14 11:04 | XMS_ITS | Encounter Summary ---
:1950 Author Organization [place] Address [address] [place] [address]. [place] [address] Care Team Providers Name Role Phone Momo [...] filedocumented in this encounter Care Teams Operations Section Manager Relationship Specialty Start Date End Date Momo Forbes PCP - General Family Practice 01/02/14 [facility] [address] [place] [address] documented as of this encounter
--- OUTSIDE RECORDS SUMMARY | 2022-04-14 11:04 | XMS_ITS | Encounter Summary ---
:1950 Author Organization [place] Address [facility] [place] [address] Care Team Providers Name Role Phone Momo Forbes Primary Care Provider Joseph Quintana MD Unavailable Encounter Details Date Type Department Care Team Description 01/27/2021 External Order [facility] Outside, Provider Results Transplant Clinic [address] [place] [address] Social History Tobacco Use Types [...] Basic metabolic panel (01/27/2021 11:45 AM CDT) [facility] gist Method Time Signature Glucose 156 (H) [...] with platelets differential (01/27/2021 11:45 AM CDT) [facility] gist Method Time Signature WBC Count 5.08 [...] on filedocumented in this encounter Care Teams Mate Fishing Vessel Relationship Specialty Start Date End Date Momo Forbes PCP - General Family Practice 01/02/14 [facility] [address] [place] [address] Joseph Quintana, Assigned Nephrology 03/29/[address] [place] [address] [address] [place] [address] documented as of this encounter
--- OUTSIDE RECORDS SUMMARY | 2022-04-14 11:04 | XMS_ITS | Encounter Summary ---
:1950 Author Organization [place] Address [address] [place] [address]. [place] [address] Care Team Providers Name Role Phone Momo Forbes Primary Care Provider Joseph Quintana MD Unavailable Encounter Details Date Type Department Care Team Description 08/25/2021 Orders Only [facility] Jose, Kidney tr ansplanted; Transplant Clinic BOGDAN Marcano -donor kidney transp lant recipient [address] [place] [phone] Social History Tobacco Use Types Packs/Day [...] transplant documented in this encounter Care Teams Hose Tender Relationship Specialty Start Date End Date Momo Forbes PCP - General Family Practice 01/02/14 [facility] [address] [place] [address] Joseph Quintana, Assigned Nephrology 03/29/21 Provider 7 [facility] [address] [facility] [address] [place], [place] [address] documented as of this encounter
--- OUTSIDE RECORDS SUMMARY | 2022-04-14 11:04 | XMS_ITS | Encounter Summary ---
:1950 Author Organization [place] Address [facility] access hospital0 [facility] [place] [address] Care Team Providers Name Role Phone Momo Forbes A Primary Care Provider Reason for Visit Reason Onset Date Comments Transplant Immunosuppression Management 09/08/2020 Encounter Details Date Type Department Care Team Description 09/08/2020 Telephone [facility] Tram, Transplant Transplant Clinic Barbie Nam, Immunosuppression [address] [place] [address] [place] [address] Social History Tobacco Use Types [...] Barbie Ugalde RN - 09/09/2020 3:06 PM COMPLAINT EVALUATION OFFICER Second call placed to patient and voicemail message left. LAINT EVALUATION OFFICER Telephone Encounter - Barbie Ugalde RN - 09/08/2020 10:31 AM COMPLAINT EVALUATION OFFICER Images from the original note were not included. Message Received: 3 days ago Message Contents Beny Staton, [facility] Barbie Ugalde, BOGDAN ?? Latrell has not filled immunos since 07/21. ??His tacro dose changed and he has not filled the 0.5mg in over a year. ??He has not returned our calls. ?? Beny Staton [facility] Specialty Pharmacist [phone] OUTCOME: Tacrolimus dose was decreased from 2mg [...] he is currently taking and need labs. LAINT EVALUATION OFFICER documented in this encounter Plan of Treatment Not on filedocumented as of this encounter Visit Diagnoses Not on filedocumented in this encounter Care Teams Search Planner Relationship Specialty Start Date End Date Momo Forbes PCP - General Family Practice 01/02/14 [place] [id number] documented as of this encounter
--- OUTSIDE RECORDS SUMMARY | 2022-04-14 11:04 | XMS_ITS | Encounter Summary ---
:1950 Author Organization [place] Address [facility] 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 Per Dr. Presleynotblaze from visit in 10/09/19: # Diabetes: Poorly controlled (HbA1c >9%) Last HbA1c: 13.7%. - Management as per primary care. - Recommended all blood sugars stay below 200, with fasting between 90 and 130. ?? Lartell states that he lost his blood sugar meter but he can pick one up at [facility]. He asked how often he should [...] level. Latrell states he returns to 08/08. RAM RESEARCH SPECIALIST Telephone Encounter - Cristy Chen LPN - 07/08/2020 3:39 PM CST DATE: 07/08/2020 TIME OF RECEIPT FROM LAB: 3:30 PM LAB TEST: Glucose LAB VALUE: 407 RESULTS GIVEN WITH READ-BACK TO (PROVIDER): Barbie Ugalde RN TIME LAB VALUE REPORTED TO PROVIDER: 3:39 PM RAM RESEARCH SPECIALIST documented in this encounter Plan of Treatment Not on filedocumented as of this encounter Visit Diagnoses Not on filedocumented in this encounter Care Teams Tank House Operator Helper Relationship Specialty Start Date End Date Momo Forbes PCP - General Family Practice 01/02/14 [facility] [address] [place] [address] documented as of this encounter
--- OUTSIDE RECORDS SUMMARY | 2022-04-14 11:04 | XMS_ITS | Encounter Summary ---
:1950 Author Organization [place] Address [address] [place] [address]. [place] [address] Care Team Providers Name Role Phone Momo Forbes Primary Care Provider Encounter Details Date Type Department Care Team Description 09/25/2019 Medical Correspondence [facility] Scan, PATIENT BLOOD Health Info Mgmt Non-Provider GLUCOSE SIVAKUMAR ALLAN Srvcs [address] [place] [phone] Social History Tobacco Use Types Packs/Day [...] filedocumented in this encounter Care Teams Computer Repair Engineer Relationship Specialty Start Date End Date Momo Forbes PCP - General Family Practice 01/02/14 [facility] [address] [place] [address] documented as of this encounter
--- OUTSIDE RECORDS SUMMARY | 2022-04-14 11:04 | XMS_ITS | Encounter Summary ---
:1950 Author Organization [place] Address [facility] [place] [address] Care Team Providers Name Role Phone ForbesMomo Primary Care Provider Reason for Visit Reason Onset Date Comments Transplant 10/23/2020 Encounter Details Date Type Department Care Team Description 10/23/2020 Telephone [facility] Trans[facility] BOGDAN Nam [address] [place] [address] [phone] Social History Tobacco Use Types Packs/Day [...] Barbie Ugalde RN - 10/23/2020 1:10 PM DIRECTOR SPECIAL EDUCATION Latrell reports his labs were done yesterday morning at [facility]. Last night ended upat ER at [facility]. Hospital printed out copy of labs and he is worried about creatinine. Latrell states he had R foot infection that needed to be cleaned out; Had surgery last day of August onfoot at [facility]. Was hospitalized 10 days before going to care home for recovery. Last night his blood sugar was dropping low into 70s and care home staff thought his BP was jumping around to much. This morning is BP 130/76, but last night 170s. Explained to Latrell that it has been a year since lastnephrology appointment and he needs to be seen for transplant follow up. He agreed but did not want to schedule at this time but will call back to schedule. Call placed to [facility] lab to fax results. Per Lab need to speak with information management department to release records or go thru [facility] to have orders faxed. Call then [...] and repeating post-transplant labs in 1-2 weeks. CTOR SPECIAL EDUCATION Telephone Encounter - Tasia Mack - 10/23/2020 10:03 AM CST Patient Call: Transplant Lab/Orders Route to BOOKSTORE MANAGER Post Transplant Days: 2455 When patient is less than 60 days post-transplant, route high priority Reason for Call: Discuss lab results; which results? creatine level Callback needed? Yes Return Call Needed Same as documented in contacts section When to return call?: Greater than one day: Route standard priority CTOR SPECIAL EDUCATION documented in this encounter Plan of Treatment Not on filedocumented as of this encounter Visit Diagnoses Not on filedocumented in this encounter Care Teams Betting Clerks Relationship Specialty Start Date End Date Momo Forbes PCP - General Family Practice 01/02/14 [facility] [address] [place] [address] documented as of this encounter
--- OUTSIDE RECORDS SUMMARY | 2022-04-14 11:04 | XMS_ITS | Encounter Summary ---
:1950 Author Organization [place] Address [facility] [place] [address] Care Team Providers Name Role Phone Forbes, Momo He Primary Care Provider Encounter Details Date Type Department Care Team Description 10/23/2020 Telephone [facility] Barbie Ugalde Transplant Clinic BOGDAN Nam [address] [place], [place] [phone] Social History Tobacco Use [...] Barbie Ugalde RN - 10/23/2020 4:27 PM SEAFOOD TEAM MEMBER Returned call and left second voicemail message. Patient mentioned in previous phone call he was interested in donating his body upon passing to [facility] for science. Please sent to following website for more information: [email or web address] OOD TEAM MEMBER Telephone Encounter - Gladis Sosa RN - 10/23/2020 3:21 PM CST Patient Call: Voicemail Date/Time: 10/23/20 139pm Reason for call: Patient left a message requesting a call back OOD TEAM MEMBER documented in this encounter Plan of Treatment Not on filedocumented as of this encounter Visit Diagnoses Not on filedocumented in this encounter Care Teams Commercial Artist Lettering Relationship Specialty Start Date End Date Momo Forbes PCP - General Family Practice 01/02/14 [facility] [address] [place] [address] documented as of this encounter
--- OUTSIDE RECORDS SUMMARY | 2022-04-14 11:04 | XMS_ITS | Encounter Summary ---
:1950 Author Organization [place] Address [address] [place] [address]. [place] [address] Care Team Providers Name Role Phone Momo Forbes Primary Care Provider Reason for Visit Reason Onset Date Comments Refill Request 02/04/2020 prograf, mycophenola te Encounter Details Date Type Department Care Team Description 02/04/2020 Refill [facility], Joseph Refill R equest Transplant Clinic MD Herminio (prograf, 9[address] [facility] [address] [facility] mycophenolate) [facility] 353 [facility] 1119 [phone] [place] [address] (Wo rk) Social History Tobacco [...] transplant documented in this encounter Care Teams Can Top Setter Relationship Specialty Start Date End Date Momo Forbes PCP - General Family Practice 01/02/14 [facility] [address] [place] [address] documented as of this encounter
--- OUTSIDE RECORDS SUMMARY | 2022-04-14 11:04 | XMS_ITS | Encounter Summary ---
:1950 Author Organization [place] Address [facility] [place] [address] Care Team Providers Name Role Phone Momo Forbes Primary Care Provider Joseph Quintana MD Unavailable Encounter Details Date Type Department Care Team Description 04/30/2021 External Order [facility] Outside, Provide r Results Molecular Diagnostic s [address] [place] [address] Social History Tobacco Use Types Packs/Day Years [...] Platelets & Differential (04/30/2021 11:20 AM CDT) [facility] gist Method Time Signature WBC [...] filedocumented in this encounter Care Teams Mechanical Systems Engineer Relationship Specialty Start Date End Date Momo Forbes PCP - General Family Practice 01/02/14 [facility] [address] [place], [place] [id number] Joseph Quintana, Assigned Nephrology 03/29/21 MD Provider 717 [facility] 353 [facility] [address] [place] [address] documented as of this encounter
--- OUTSIDE RECORDS SUMMARY | 2022-04-14 11:04 | XMS_ITS | Encounter Summary ---
:1950 Author Organization [place] Address [address] [place] [address]. [place] [address] Care Team Providers Name Role Phone Momo [...] on filedocumented in this encounter Care Teams Wind Energy Mechanic Relationship Specialty Start Date End Date Momo Forbes PCP - General Family Practice 01/02/14 [facility] [address] [place] [address] documented as of this encounter
--- OUTSIDE RECORDS SUMMARY | 2022-04-14 11:04 | XMS_ITS | Encounter Summary ---
:1950 Author Organization [place] Address [facility] [place] [address] Care Team Providers Name Role Phone Momo Forbes Primary Care Provider Joseph Quintana MD Unavailable Encounter Details Date Type Department Care Team Description 08/08/2020 External Order [facility] Outside, Provider Results Transplant Clinic [address] [place] [phone] Social History Tobacco Use Types Packs/Day [...] 08/08/2020 11:43 Results f or this AM ARTIFICIAL FLY TIER procedure are i n the results section. TACROLIMUS BY TANDEM Routine 08/08/2020 11:34 Res ults for this MASS SPECTROMETRY AM ARTIFICIAL FLY TIER procedure are in the results section. LIPID PROFILE Routine 08/08/2020 11:34 Results fo r this AM ARTIFICIAL FLY TIER procedure are i n the results section. ALT Routine 08/08/2020 11:34 Results for this AM ARTIFICIAL FLY TIER procedure are i n the results section. BASIC METABOLIC PANEL Routine 08/08/2020 11:34 Re sults for this AM ARTIFICIAL FLY TIER procedure are i n the results section. documented in this encounter Results (ABNORMAL) Hemoglobin A1c (08/08/2020 11:43 AM ARTIFICIAL FLY TIER) Analysis Performed At Patho logist Time Signature Hemoglobin A1C 10.2 (H) <=6.9 % LABDE SCAN (External) Specimen (Source) Anatomical Collection Method Collection Time Re ceived Time Location / / Volume Laterality Blood specimen 08/08/2020 11:43 (specimen) AM ARTIFICIAL FLY TIER Narrative [facility] - 08/11/2020 1:28 PM ARTIFICIAL FLY TIER Verified by Praful Huff on 2019. Patient Reported LAB - BLOOD ORDERABLES Performing Organization Address City/State/ZIP Code Phon e Number [facility] LABDE SCAN Tacrolimus level (08/08/2020 11:34 AM ARTIFICIAL FLY TIER) athologist Signature Tacrolimus(FK-5 11.7 See scan LABDE SCAN 06) (External) ng/mL Specimen (Source) Anatomical Collection Method Collection Time Re ceived Time Location / / Volume Laterality Blood specimen 08/08/2020 11:34 (specimen) AM ARTIFICIAL FLY TIER Narrative [facility] - 08/11/2020 1:28 PM ARTIFICIAL FLY TIER Verified by Praful Huff on 2019. Patient Reported LAB - BLOOD ORDERABLES Performing Organization Address City/State/ZIP Code Phon e Number [facility] LABDE SCAN (ABNORMAL) Lipid Profile (08/08/2020 11:34 AM ARTIFICIAL FLY TIER) [facility] gist Method Time Signature Cholesterol 79 (L) 90 - 200 LABDE SCAN (External) MG/DL Triglycerides 86 40 - 197 LABDE SCAN (External) MG/DL LDL-Cholesterol 29 <100 mg/dL LABDE SCAN (External) HDL Cholesterol 33 (L) >=40 mg/dL LABDE SCAN (External) Specimen (Source) Anatomical Collection Method Collection Time Re ceived Time Location / / Volume Laterality Blood specimen 08/08/2020 11:34 (specimen) AM ARTIFICIAL FLY TIER Narrative [facility] - 08/11/2020 1:28 PM ARTIFICIAL FLY TIER Verified by Praful Huff on 2019. Patient Reported LAB - BLOOD ORDERABLES Performing Organization Address City/State/ZIP Code Phon e Number [facility] LABDE SCAN ALT (08/08/2020 11:34 AM ARTIFICIAL FLY TIER) P athologist Signature ALT (External) 8 4 - 50 U/L LABDE SCAN Specimen (Source) Anatomical Collection Method Collection Time Re ceived Time Location / / Volume Laterality Blood specimen 08/08/2020 11:34 (specimen) AM ARTIFICIAL FLY TIER Narrative [facility] - 08/11/2020 1:28 PM ARTIFICIAL FLY TIER Verified by Praful Huff on 2019. Patient Reported LAB - BLOOD ORDERABLES Performing Organization Address City/State/ZIP Code Phon e Number [facility] LABDE SCAN (ABNORMAL) Basic metabolic panel (08/08/2020 11:34 AM ARTIFICIAL FLY TIER) P athologist Signature Glucose 119 (H) 60 [...] Laterality Blood specimen 08/08/2020 11:34 (specimen) AM ARTIFICIAL FLY TIER Narrative [facility] - 08/11/2020 1:28 PM ARTIFICIAL FLY TIER Verified by Praful Huff on 2019. Patient Reported LAB - BLOOD ORDERABLES Performing Organization Address City/State/ZIP Code Phon e Number [facility] LABDE SCAN documented in this encounter Visit Diagnoses Not on filedocumented in this encounter Care Teams Turning Machine Operator Relationship Specialty Start Date End Date Momo Forbes PCP - General Family Practice 01/02/[address] [address] Joseph Quintana, Assigned Nephrology 03/29/21 MD Provider [address] [place] [address] documented as of this encounter
--- OUTSIDE RECORDS SUMMARY | 2022-04-14 11:04 | XMS_ITS | Encounter Summary ---
:1950 Author Organization [place] Address Critical [facility] hospital0 [facility] [place] [address] Care Team Providers Name Role Phone Momo Forbes Primary Care Provider Reason for Visit Reason Onset Date Comments Transplant 01/07/2021 Encounter Details Date Type Department Care Team Description 01/07/2021 Telephone [facility] Barbie Ugaldelanlynda Transplant Clinic BOGDAN Nam [address] [place] [address] [phone] Social History Tobacco Use Types Packs/Day [...] CDT Patient Call: Transplant Lab/Orders Route to MONITORING ANALYST Post Transplant Days: 2530 When patient is less than 60 days post-transplant, route high priority Reason for Call: Annual lab reorder fax labs to [facility] lab at [phone] Labs drawn Waiting fororders Callback needed? No documented in this encounter Plan of Treatment Not on filedocumented as of this encounter Visit Diagnoses Not on filedocumented in this encounter Care Teams Linderman Operator Relationship Specialty Start Date End Date Momo Forbes PCP - General Family Practice 01/02/14 [facility] [address] [place] [address] documented as of this encounter
--- OUTSIDE RECORDS SUMMARY | 2022-04-14 11:04 | XMS_ITS | Encounter Summary ---
:1950 Author Organization [place] Address [address] [facility] [place] [address] Care Team Providers Name Role Phone Forbes, Ton Primary Care Provider Reason for Visit Reason Comments RECHECK Follow Up [place] Encounter Details Date Type Department Care Team Description 03/05/2021 Virtual Visit [facility] Joseph Quintana HTN, ki dney transplant related (Primary Dx); Nephrology Clinic MD Herminio Kidney replaced by transplant; [address] Aftercare following organ tr ansplant; [address] [place] [address] SE [place] [address] [facility] Immunosu ppression (H); [address] Vitamin D deficiency; [place] [phone] [phone] Social History Tobacco Use Types Packs/Day Years [...] would you like to be contacted at? [phone] How would you like to obtain your [...] and ended up being discharged to a care home. He is doing better and now back [...] unspecified documented in this encounter Care Teams Filling Operator Relationship Specialty Start Date End Date Momo Forbes PCP - General Family Practice 01/02/14 [facility] [address] [place] [address] documented as of this encounter
--- OUTSIDE RECORDS SUMMARY | 2022-04-14 11:04 | XMS_ITS | Encounter Summary ---
:1950 Author Organization [place] Address [address] [place] [address]. [place] [address] Care Team Providers Name Role Phone Momo Forbes Primary Care Provider Joseph Quintana MD Unavailable Reason for Visit Reason Onset Date Comments Refill Request 08/25/2021 Prograf 0.5mg Encounter Details Date Type Department Care Team Description 08/25/[address] [facility] Orlando Richey, Refil l Request (Prograf Transplant Clinic 0.5mg) [address] [place] [phone] Social History Tobacco Use Types [...] Miscellaneous Notes Telephone Encounter - Meghan Mccormack [facility] - 08/25/2021 2:15 PM CST Medication/Refill approved per CPA: [facility] COLLABORATIVE AGREEMENT FOR IMMUNOSUPPRESSENT PRESCRIPTION MODIFICATION. Routing encounter to Transplant as an FYI. 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
--- OUTSIDE RECORDS SUMMARY | 2022-04-14 11:05 | XMS_ITS | Encounter Summary ---
:1950 Author Organization [place] Address [address] [place] [address]. [place] [address] Care Team Providers Name Role Phone Momo Forbes Primary Care Provider Reason for Visit Reason Onset Date Comments Refill Request 02/28/2019 Encounter Details Date Type Department Care Team Description 02/28/2019 Refill [facility] Shiva Presley MD Refill Request Nephrology Clinic [place] [address] [phone] Social History Tobacco Use Types Packs/Day Years [...] disease documented in this encounter Care Teams Program Director Cable Television Relationship Specialty Start Date End Date Momo Forbes PCP - General Family Practice 01/02/14 [facility] [address] [place], [place] [id number] documented as of this encounter
--- OUTSIDE RECORDS SUMMARY | 2022-04-14 11:05 | XMS_ITS | Encounter Summary ---
:1950 Author Organization [place] Address [facility] [place] [place] [address] Care Team Providers Name Role Phone Momo Forbes Primary Care Provider Reason for Visit Reason Onset Date Comments Transplant Pharmacy Medication Review 01/10/2019 Encounter Details Date Type Department Care Team Description 01/10/2019 [facility]phone [facility] Meghan Mccormack, [facility] Transplant Pharmacy [address] [facility] [place] [address] PHARMACY [phone] [address], [place] [address] (Wo rk) Social History Tobacco Use Types [...] on filedocumented in this encounter Care Teams Assembly Mechanic Relationship Specialty Start Date End Date Momo Forbes PCP - General Family Practice 01/02/14 [facility] [address] [place] [address] documented as of this encounter
--- OUTSIDE RECORDS SUMMARY | 2022-04-14 11:05 | XMS_ITS | Encounter Summary ---
:1950 Author Organization [place] Address [address] [place] [place] [address] Care Team Providers Name Role Phone Momo Forbes A Primary Care Provider Reason for Visit Reason Onset Date Comments Refill Request 10/25/2018 Encounter Details Date Type Department Care Team Description 10/25/2018 Refill [facility] Joseph Quintana MD Refill Request Transplant Clinic [address] [place] [address] [phone] [place] [address] (Wo rk) Social History Tobacco [...] Marianne Urias RN - 10/26/2018 9:04 AM SPRINKLER TRUCK DRIVER ISSUE: Refill request for MMF 03/2019 appt [...] to call if further questions or concerns. NKLER TRUCK DRIVER documented in this encounter Plan of Treatment Not on filedocumented as of this encounter Visit Diagnoses Diagnosis Kidney transplanted Kidney replaced by transplant documented in this encounter Care Teams Acid Painter Relationship Specialty Start Date End Date Momo Forbes PCP - General Family Practice 01/02/14 [facility] [address] [place] [address] documented as of this encounter
--- OUTSIDE RECORDS SUMMARY | 2022-04-14 11:05 | XMS_ITS | Encounter Summary ---
:1950 Author Organization [place] Address [address] [place] [address]. [place] [address] Care Team Providers Name Role Phone Momo Forbes Primary Care Provider Reason for Visit Reason Onset Date Comments Refill Request 01/17/2019 Encounter Details Date Type Department Care Team Description 01/17/2019 Refill [facility] Joseph Quintana MD Refill Request Transplant Clinic [address] [place] [address] [phone] [place] [address] (Wo rk) Social History Tobacco [...] transplant documented in this encounter Care Teams Sales Support Specialist Relationship Specialty Start Date End Date Momo Forbes PCP - General Family Practice 01/02/14 [facility] [address] [place] [address] documented as of this encounter
--- OUTSIDE RECORDS SUMMARY | 2022-04-14 11:05 | XMS_ITS | Encounter Summary ---
:1950 Author Organization [place] Address [address] [place] [address]. [place] [address] Care Team Providers Name Role Phone Momo [...] on filedocumented in this encounter Care Teams Crop Supervisor Relationship Specialty Start Date End Date Momo Forbes PCP - General Family Practice 01/02/14 [facility] [address] [place] [address] documented as of this encounter
--- OUTSIDE RECORDS SUMMARY | 2022-04-14 11:05 | XMS_ITS | Encounter Summary ---
:1950 Author Organization [place] Address [address] [facility] [place] [address] Care Team Providers Name Role Phone Forbes, Momo He Primary Care Provider Reason for Visit Reason Onset Date Comments Transplant 10/18/2018 post transplant lucía sampson Encounter Details Date Type Department Care Team Description 10/18/2018 Telephone [facility] Nazia Jacobson Transplant (post Transplant Clinic BOGDAN Hicksdecorative engraver apprentice scheduling) [address] [place] [phone] Social History Tobacco Use Types Packs/Day [...] another detailed message with weight managements number. PROCESSOR Telephone Encounter - Maribel Plunkett - 10/18/2018 9:32 AM CST I attempted to contact pt to give him the number for weight management, as they want to talk directly to the patient when scheduling initial appointment, and reached his VM. I LVM asking him to return my call. PROCESSOR documented in this encounter Plan of Treatment Not on filedocumented as of this encounter Visit Diagnoses Not on filedocumented in this encounter Care Teams Eating Disorder Psychologist Relationship Specialty Start Date End Date Momo Forbes PCP - General Family Practice 01/02/14 [facility] [address] [place] [address] documented as of this encounter
--- OUTSIDE RECORDS SUMMARY | 2022-04-14 11:05 | XMS_ITS | Encounter Summary ---
:1950 Author Organization [place] Address [address] 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 ified complication, with long-term current use of insulin (H) (Primary Dx); Nephrology Clinic [facility] Kidney/Pancreas Recipient Kidney replaced by transplant; [place] Aftercare following organ tr ansplant; [address] Immunosupp ression (H); SE HTN, kidney transplant relat ed; [place], [place] Severe obesi ty in adult, BMI [...] Comments Blood Pressure 162/77 10/17/2018 1:54 PM CLIENT CARE REPRESENTATIVE Pulse 60 10/17/2018 1:54 PM CLIENT CARE REPRESENTATIVE Temperature 36.5 ??C (97.7 ??F) 10/17/2018 1:54 PM CLIENT CARE REPRESENTATIVE Respiratory Rate - - Oxygen Saturation 94% 10/17/2018 1:54 PM CLIENT CARE REPRESENTATIVE Inhaled Oxygen Concentration - - Weight 133.7 kg (294 lb 12.8 oz) 10/17/2018 1:54 PM CLIENT CARE REPRESENTATIVE Height - - Body Mass Index 39.98 10/10/2017 2:25 PM CLIENT CARE REPRESENTATIVE documented in this encounter Progress Notes Josehp Quintana MD - 10/17/2018 2:35 PM CST [...] then 50%0. Also offered to refer to auditor in charge. # Mineral Bone Disorder: - Secondary renal [...] PREVIOUSLY REPORTED 1999 MPACID 1.39 MPAG 80.2 NT CARE REPRESENTATIVE documented in this encounter Nursing Notes Martina [...] kg (294 lb 12.8 oz). Martina Boyle NT CARE REPRESENTATIVE documented in this encounter Plan of Treatment [...] >40 documented in this encounter Care Teams Customer Contact Sales Associate Relationship Specialty Start Date End Date Momo Forbes PCP - General [facility] Hospital Practice 01/02/14 [facility] [address] [place] [address] documented as of this encounter
--- OUTSIDE RECORDS SUMMARY | 2022-04-14 11:05 | XMS_ITS | Encounter Summary ---
:1950 Author Organization [place] Address [facility] [place] [address] Care Team Providers Name Role Phone Forbes, Ton Primary Care Provider Reason for Visit Reason Onset Date Comments Kidney Transplant 05/20/2019 Encounter Details Date Type Department Care Team Description 05/20/2019 Telephone [facility] Estefania Nguyen Transplant Transplant Clinic Amanda Fletcher RN [address] [place] [phone] Social History Tobacco Use Types Packs/Day [...] not charted as 12 hour trough. ?? Plan/CONTINUITY CLERK task: ?? Please confirm timing of lab draw. If this was not a 12 hour level, please repeat labs in May and ensure 12 hour trough level with lab draw. Enter lab orders if needed Telephone Encounter - Amanda Nguyen RN - 05/20/2019 5:38 PM CDT Issue: Tac 4.6 - however this is not charted as 12 hour trough. Plan/CONTINUITY CLERK task: Please confirm timing of lab draw. If this was not a 12 hour level, please repeat labs in May and ensure 12 hour trough level with lab draw. Enter lab orders if needed. documented in this encounter Plan of Treatment Not on filedocumented as of this encounter Visit Diagnoses Not on filedocumented in this encounter Care Teams Accounting Methods Analyst Relationship Specialty Start Date End Date Momo Forbes PCP - General Family Practice 01/02/14 [facility] [address] [place] [address] documented as of this encounter
--- OUTSIDE RECORDS SUMMARY | 2022-04-14 11:05 | XMS_ITS | Encounter Summary ---
:1950 Author Organization [place] Address [address] [place] [address] Care Team Providers Name Role Phone ForbesMomo prakash A Primary Care Provider Reason for Visit Reason Onset Date Comments Transplant Lab 09/06/2018 Encounter Details Date Type Department Care Team Description 09/06/[address] [facility] Transplant [place], Transplant Lab Clinic BOGDAN Lopes [address] [place] [phone] Social History Tobacco Use Types Packs/Day [...] Marianne Urias RN - 09/12/2018 11:58 AM DIGITAL CONTENT SPECIALIST Attempted to reach pt again regarding his labs, no answer. Left message for pt to return call. TAL CONTENT SPECIALIST Telephone Encounter - Marianne Urias RN - 09/07/2018 1:30 PM DIGITAL CONTENT SPECIALIST Attempted to reach pt again regarding labs, no answer. Left message for pt to return call. TAL CONTENT SPECIALIST Telephone Encounter - Marianne Urias RN - 09/06/2018 12:59 PM DIGITAL CONTENT SPECIALIST ISSUE: Creatinine 1.69, up from pt baseline [...] Left message for pt to return call. TAL CONTENT SPECIALIST documented in this encounter Plan of Treatment Not on filedocumented as of this encounter Visit Diagnoses Not on filedocumented in this encounter Care Teams Pigment Grinder Relationship Specialty Start Date End Date Momo Forbes PCP - General Family Practice 01/02/14 [facility] [address] [place] [address] documented as of this encounter
--- OUTSIDE RECORDS SUMMARY | 2022-04-14 11:05 | XMS_ITS | Encounter Summary ---
:1950 Author Organization [place] Address [facility] [place] [address] Care Team Providers Name Role Phone Momo Forbes Primary Care Provider Joseph Quintana MD Unavailable Encounter Details Date Type Department Care Team Description 05/16/2019 External Order [facility] Nurse, Txc Afterca re following organ transplant; Results Transplant Clinic Kidney replaced by transplan t; [address] [place] [address] Encounter for long-term curr [place] [phone] Social History Tobacco Use Types [...] 3:43 PM CDT) Analysis Performed At [facility] Time Signature Sodium 136 135 [...] Estimated >60 >60 LABDE SCAN (if ml/min/1.7 Angolan) 3m2 (External) GFR Estimated 56 (L) >60 [...] 3:36 PM CDT) Analysis Performed At [facility] Time Signature Protein Random 41 [...] edication documented in this encounter Care Teams End Finder Forming Department Relationship Specialty Start Date End Date Momo Forbes PCP - General Family Practice 01/02/14 [facility] 2000 [place] [address] Joseph Quintana, Assigned Nephrology 03/29/21 Provider [address] [facility] [address] [facility] [address] [place] [address] documented as of this encounter
--- OUTSIDE RECORDS SUMMARY | 2022-04-14 11:05 | XMS_ITS | Encounter Summary ---
:1950 Author Organization [place] Address [address] [place] [address]. [place] [address] Care Team Providers Name Role Phone Momo [...] on filedocumented in this encounter Care Teams Music Agent Relationship Specialty Start Date End Date Momo Forbes PCP - General Family Practice 01/02/14 [facility] [address] [place] [address] documented as of this encounter
--- OUTSIDE RECORDS SUMMARY | 2022-04-14 11:05 | XMS_ITS | Encounter Summary ---
:1950 Author Organization [employer] Address [address] [facility] [place] [address] Care Team Providers Name Role Phone Forbes, Momo He Primary Care Provider Reason for Referral Consultation - Closed Specialty Diagnoses / Procedures Referred By Contact Refer red To Contact Diagnoses Obesity Kidney transplanted [facility] Other Services 0 [place] [address] Referral ID Status Reason Start Date Expiration Date Visits Requ ested Visits Authorized [id number] Closed 10/17/2018 10/17/2019 1 1 T DESK REPRESENTATIVE Reason for Visit Reason Comments Transplant Encounter Details Date Type Department Care Team Description 10/17/2018 Orders Only [facility] Marcelacaty Nazia Obesity (P rimary Dx); Transplant Clinic BOGDAN Hicks Kidney transplanted [address] [place] [address] Social History Tobacco Use Types [...] transplant documented in this encounter Care Teams Wheelchair Van Driver Relationship Specialty Start Date End Date Momo Forbes PCP - General Family Practice 01/02/14 [facility] [address] [place] [address] documented as of this encounter
--- OUTSIDE RECORDS SUMMARY | 2022-04-14 11:05 | XMS_ITS | Encounter Summary ---
:1950 Author Organization [place] Address [address] [place] [address] Care Team Providers Name Role Phone Momo Forbes Primary Care Provider Encounter Details Date Type Department Care Team Description 05/16/2019 Orders Only [facility] Loy Morales Aft ercare following organ transplant; [facility] Kidney replaced by transplant; Laboratory [address] [facility] Encounter for long-term curr ent use of medication [address] [place] [address] [phone] (Wo rk) Social History Tobacco Use Types [...] (ABNORMAL) Tacrolimus level (05/16/2019 3:43 PM CDT) [facility] gist Method Time Signature Tacrolimus Last 05/1605/18/2019 [facility] Dose 1230AM 11:28 AM CDT [facility] Tacrolimus 4.6 (L) 5.0 - 05/18/2019 [facility] 15.0 ug/L 4:11 PM CDT [facility] Comment: [...] its performa nce characteristics determined by the [facility], ??Special Chemistry Laboratory. It has not been [...] [facility] [address] documented in this encounter Visit Diagnoses Diagnosis Aftercare following organ transplant Kidney replaced by transplant Encounter for long-term current use of m edication documented in this encounter Care Teams Facilities Maintenance Engineer Relationship Specialty Start Date End Date Momo Forbes PCP - General Family Practice 01/02/14 [facility] [address] [place] [address] documented as of this encounter
--- OUTSIDE RECORDS SUMMARY | 2022-04-14 11:06 | XMS_ITS | Encounter Summary ---
:1950 Author Organization [place] Address [address] [place] [address] Care Team Providers Name Role Phone Forbes, Ton Primary Care Provider Reason for Visit Reason Onset Date Comments Transplant 11/07/2017 Encounter Details Date Type Department Care Team Description 11/07/2017 Telephone [facility] Transplant Nazia Jacobson, Transplant Clinic RN [address] [place] [phone] Social History Tobacco Use Types Packs/Day [...] range, repeat tac level in 1 week. TYPEWRITER OPERATOR AUTOMATIC TASK: Call patient with instructions per plan. Enter lab orders if needed. documented in this encounter Plan of Treatment Not on filedocumented as of this encounter Visit Diagnoses Not on filedocumented in this encounter Care Teams Regional Medical Director Relationship Specialty Start Date End Date Momo Forbes PCP - General Family Practice 01/02/[address] [address] documented as of this encounter
--- OUTSIDE RECORDS SUMMARY | 2022-04-14 11:06 | XMS_ITS | Encounter Summary ---
:1950 Author Organization [place] Address [address] [place] [address] Care Team Providers Name Role Phone Momo Forbes Primary Care Provider Encounter Details Date Type Department Care Team Description 07/15/2017 Orders Only [facility] Loy Morales Kid ney replaced by [facility] MD transplant Laboratory [address] [facility] [address] [facility] [address] [place] [id number] (Wo rk) Social History Tobacco Use Types [...] by Results for this MASS SPECTROMETRY AM CURRICULUM DEVELOPMENT MANAGER transplant procedure are in the results section. documented in this encounter Results (ABNORMAL) Tacrolimus level (07/15/2017 10:48 AM CURRICULUM DEVELOPMENT MANAGER) [facility] Method Time Signature Tacrolimus Last 0000 07/19/2017 [facility] 07/15/17 10:48 AM [facility] Tacrolimus 4.4 (L) 5.0 - 07/19/2017 [facility] Level 15.0 ug/L 2:38 PM [facility] Comment: Tacrolimus Reference Range Kidney Transplant Pediatric [...] its performa nce characteristics determined by the [facility] [...] Blood specimen 07/15/2017 10:48 7 (specimen) AM CURRICULUM DEVELOPMENT MANAGER 10:47 AM CURRICULUM DEVELOPMENT MANAGER Orlando Richey MD LAB - BLOOD ORDERABLES Performing Organization Address City/State/ZIP Code Phon e Number [facility] [address] [place], [place] [phone] [place] [address] 500 [place], [place] [phone] [place] [address] documented in this encounter Visit Diagnoses Diagnosis Kidney replaced by transplant documented in this encounter Care Teams Preschool Paraprofessional Relationship Specialty Start Date End Date Momo Forbes PCP - General Family Practice 01/02/14 [facility] [address] [place] [address] documented as of this encounter
--- OUTSIDE RECORDS SUMMARY | 2022-04-14 11:06 | XMS_ITS | Encounter Summary ---
:1950 Author Organization [place] Address [address] [place] [address]. [place] [address] Care Team Providers Name Role Phone Momo Forbes Primary Care Provider Reason for Visit Reason Onset Date Comments Transplant 08/31/2017 Encounter Details Date Type Department Care Team Description 08/31/2017 Telephone [facility] Transplant Amanda Garduno Transplant Clinic M, RN [address] [place] [phone] Social History Tobacco Use Types Packs/Day [...] on filedocumented in this encounter Care Teams Tin Container Straightener Relationship Specialty Start Date End Date Momo Forbes PCP - General Family Practice 01/02/14 [facility] [address] [place] [address] documented as of this encounter
--- OUTSIDE RECORDS SUMMARY | 2022-04-14 11:06 | XMS_ITS | Encounter Summary ---
:1950 Author Organization [place] Address [address] [place] [address] Care Team Providers Name Role Phone ForbesMomo santiago A Primary Care Provider Reason for Visit Reason Onset Date Comments Transplant 09/12/2017 Encounter Details Date Type Department Care Team Description 09/12/2017 Telephone [facility] Transplant Nazia Jacobson, Transplant Clinic RN [address] [place] [phone] Social History Tobacco Use Types Packs/Day [...] updated standing lab order and faxed to [facility] lab. D AND PLASMA LABORATORY ASSISTANT Telephone Encounter - Nazia Jacobson RN - 09/12/2017 8:36 AM BLOOD AND PLASMA LABORATORY ASSISTANT ISSUE: Hyperglycemia (blood sugar 300-600s w/ last 2 blood draws) Overdue for transplant labs PHYSICIAN SURGEON TASK: Call Diego Guthrie and ask him who is managing his diabetes? Does he have an wellness program manager? He needs to have better blood sugar control, elevated blood sugars can cause damage to his kidney. Remind him that he should be getting transplant labs done monthly. (3 years out from kidney transplant) Send updated lab letter. D AND PLASMA LABORATORY ASSISTANT documented in this encounter Plan of Treatment Not on filedocumented as of this encounter Visit Diagnoses Not on filedocumented in this encounter Care Teams Art Objects Supervisor Relationship Specialty Start Date End Date Momo Forbes PCP - General Family Practice 01/02/14 [facility] [address] [place] [address] documented as of this encounter
--- OUTSIDE RECORDS SUMMARY | 2022-04-14 11:06 | XMS_ITS | Encounter Summary ---
:1950 Author Organization [place] Address [address] [facility] [place] [address] Care Team Providers Name Role Phone ForbesMomo prakash A Primary Care Provider Reason for Visit Reason Onset Date Comments Appointment 10/05/2017 Encounter Details Date Type Department Care Team Description 10/05/2017 Telephone [facility] Shiva Presley MD Appointment Nephrology Clinic [facility] [address] [place] [address] [phone] Social History Tobacco Use Types Packs/Day Years [...] or concernsahead of appointment. Romi Rodriguez RN S PLANNING ANALYST documented in this encounter Plan of Treatment Not on filedocumented as of this encounter Visit Diagnoses Not on filedocumented in this encounter Care Teams Wire Sawyer Relationship Specialty Start Date End Date Momo Forbes PCP - General Family Practice 01/02/14 [facility] [address] [place] [address] documented as of this encounter
--- OUTSIDE RECORDS SUMMARY | 2022-04-14 11:06 | XMS_ITS | Encounter Summary ---
:1950 Author Organization [place] Address [address] [place] [address] Care Team Providers Name Role Phone Momo Forbes Primary Care Provider Encounter Details Date Type Department Care Team Description 05/15/2018 Orders Only M [facility] Loy Morales MD [facility] 420 [facility] [address] [place] [id number] [place] [address] [phone] Social History Tobacco Use Types Packs/Day Years [...] (ABNORMAL) Tacrolimus level (05/15/2018 2:13 PM CDT) [facility] gist Method Time Signature Tacrolimus Not Provided 05/18/2018 [facility] Last Dose 7:24 AM CDT [facility] Tacrolimus 3.4 (L) 5.0 - 05/18/2018 [facility] Level 15.0 ug/L 7:24 AM CDT [facility] Comment: Tacrolimus Reference Range [...] LAB - BLOOD ORDERABLES Performing Organization Address [facility]/ZIP Code Phon e Number [facility] [address] Cyclosporine (05/15/2018 2:13 PM CDT) Component Value Ref Test Analysis Performed At [facility] Range Method Time Signature Cyclosporine CANCELLED BY 05/17/2018 [facility] Dose BOGDAN KOLB 1:00 PM CDT [facility] ETCHEVERRY ON [facility] 05/17/18 AT CAMPUS 1300 BY MO Comment: CORRECTED ON 05/17 AT 1300: PRE VIOUSLY REPORTED [id number] Cyclosporine Level CANCELLED BY RN 50 - 400 05/17/2018 1:00 [facility] C[facility] ug/L PM CDT [facility] ETCHEVERRY ON [facility] 05/17/18 AT 1300 BY MO Comment: CORRECTED ON 05/17 AT 1300: PRE VIOUSLY REPORTED <25 Specimen Anatomical Collection Method Collection Time Receive d Time (Source) Location / / Volume Laterality 05/15/2018 2:13 PM 8 9:59 CDT AM CDT Orlando Richey MD LAB - BLOOD ORDERABLES Performing Organization Address City/[facility]/ZIP Code Phon e Number [address] documented in this encounter Visit Diagnoses Not on filedocumented in this encounter Care Teams Parking Worker Relationship Specialty Start Date End Date Momo Forbes PCP - General Family Practice 01/02/14 [facility] [address] [place] [address] documented as of this encounter
--- OUTSIDE RECORDS SUMMARY | 2022-04-14 11:06 | XMS_ITS | Encounter Summary ---
:1950 Author Organization [place] Address [facility] [place] [address] Care Team Providers Name Role Phone ForbesMomo santiago A Primary Care Provider Encounter Details Date Type Department Care Team Description 08/18/[address] [facility] Josseline Recinos, Transplant Clinic RN [address] [place] [address] Social History Tobacco Use Types [...] faxed to: [facility] [phone] (Phone) Lab orders up to date in [facility]. SITION REPORTER documented in this encounter Plan of Treatment Not on filedocumented as of this encounter Visit Diagnoses Not on filedocumented in this encounter Care Teams Beam Sealer Relationship Specialty Start Date End Date Momo Forbes PCP - General Family Practice 01/02/14 [facility] [address] [place] [address] documented as of this encounter
--- OUTSIDE RECORDS SUMMARY | 2022-04-14 11:06 | XMS_ITS | Encounter Summary ---
:1950 Author Organization [place] Address [facility] [place] [address] Care Team Providers Name Role Phone Momo Forbes Primary Care Provider Joseph Quintana MD Unavailable Encounter Details Date Type Department Care Team Description 05/15/2018 External Order Results [facility] Nurse, [facility] Transplant Clinic [address] [place] [address] Social History Tobacco Use Types [...] 54 (L) >60 LABDE SCAN (if ml/min/1.7 Cambodian) 3m2 (External) GFR Estimated 44 (L) >60 [...] on filedocumented in this encounter Care Teams Deputy City Clerk Relationship Specialty Start Date End Date Momo Forbes PCP - General Family Practice 01/02/14 [facility] [address] [place] [address] Joseph Quintana, Assigned Nephrology 03/29/21 Provider 7 [facility] 353 [facility] [address] [place], [place] [id number] documented as of this encounter
--- OUTSIDE RECORDS SUMMARY | 2022-04-14 11:06 | XMS_ITS | Encounter Summary ---
:1950 Author Organization [place] Address [address] [place] [address]. [place] [address] Care Team Providers Name Role Phone Momo Forbes Primary Care Provider Encounter Details Date Type Department Care Team Description 05/17/2018 Orders Only [facility] Alana Calderon Afterc are following Transplant associate teacher organ transplant [address] [place] [address] (Primary Dx) [place] [address] Social History Tobacco Use Types [...] rimary documented in this encounter Care Teams Manager Software Relationship Specialty Start Date End Date Momo Forbes PCP - General Family Practice 01/02/14 [facility] [address] [place] [address] documented as of this encounter
--- OUTSIDE RECORDS SUMMARY | 2022-04-14 11:06 | XMS_ITS | Encounter Summary ---
:1950 Author Organization [place] Address [facility] [place] [address] Care Team Providers Name Role Phone Momo Forbes Primary Care Provider Joseph Quintana MD Unavailable Encounter Details Date Type Department Care Team Description 09/04/[address] [facility] Nurse, [facility] Transplant Clinic 9 [place] [address] Social History Tobacco Use Types [...] 2:50 PM R esults for this DIFFERENTIAL SECTION WEAVER procedure are i n the results section. BASIC METABOLIC PANEL Routine 09/04/2018 2:50 PM Results for this SECTION WEAVER procedure are i n the results section. PROTEIN RANDOM URINE Routine 09/04/2018 2:49 PM R esults for this SECTION WEAVER procedure are i n the results section. documented in this encounter Results (ABNORMAL) CBC with platelets differential (09/04/2018 2:50 PM SECTION WEAVER) [facility] gist Method Time Signature WBC Count [...] Laterality Blood specimen 09/04/2018 2:50 PM (specimen) SECTION WEAVER Narrative JESSICA THIBODEAUX - 09/06/2018 9:13 AM SECTION WEAVER Verified by Cassie Florian on 09/06/2018. Patient Reported LAB - BLOOD ORDERABLES Performing Organization Address City/State/ZIP Code Phon e Number [facility] LABDE SCAN (ABNORMAL) Basic metabolic panel (09/04/2018 2:50 PM SECTION WEAVER) Analysis Performed At Patho logist Time Signature [...] 49 (L) >60 LABDE SCAN (if ml/min/1.7 [place]guillan) 3m2 (External) GFR Estimated 41 (L) >60 LABDE SCAN (External) ml/min/1.7 3m2 Specimen (Source) Anatomical Collection Method Collection Time Re ceived Time Location / / Volume Laterality Blood specimen 09/04/2018 2:50 PM (specimen) SECTION WEAVER Narrative JESSICA PFT - 09/06/2018 9:13 AM SECTION WEAVER Verified by Cassie Florian on 09/06/2018. Patient Reported LAB - BLOOD ORDERABLES Performing Organization Address City/State/ZIP Code Phon e Number [facility] LABDE SCAN (ABNORMAL) Protein random urine with Creat Ratio (09/04/2018 2:49 PM SECTION WEAVER) P athologist Signature Protein Random 72 (H) 1 - 14 LABDE SCAN Urine mg/dL (External) Creatinine 104.0 63.0 - LABDE SCAN Urine mg/dL 166.0 (External) mg/dL Protein Total 0.7 (H) <0.2 LABDE SCAN Ur per Cr (External) Specimen (Source) Anatomical Collection Method Collection Time Re ceived Time Location / / Volume Laterality Urine specimen 09/04/2018 2:49 PM (specimen) SECTION WEAVER Narrative MARLENEE PFT - 09/06/2018 9:13 AM SECTION WEAVER Verified by Cassie Florian on 09/06/2018. Patient Reported LAB - URINE ORDERABLES Performing Organization Address City/State/ZIP Code Phon e Number [facility] [facility] LABDE SCAN documented in this encounter Visit Diagnoses Not on filedocumented in this encounter Care Teams Distribution Systems Serviceperson Relationship Specialty Start Date End Date Momo Forbes PCP - General Family Practice 01/02/14 [facility] [address] [place] [address] Joseph Quintana, Assigned Nephrology 03/29/21 MD Provider 717 [facility] 353 [facility] [address] [place] [address] documented as of this encounter
--- OUTSIDE RECORDS SUMMARY | 2022-04-14 11:06 | XMS_ITS | Encounter Summary ---
:1950 Author Organization [place] Address [address] [facility] [place] [address] Care Team Providers Name Role Phone Momo Forbes A Primary Care Provider Reason for Visit Reason Onset Date Comments Refill Request 10/10/2017 mycophenolae Encounter Details Date Type Department Care Team Description 10/10/2017 Refill [facility] [place] Mariano, Joseph Refill R equest Transplant Clinic MD Herminio (mycophenolae ) [address] [place] [phone] [place] [address] (Wo rk) Social History Tobacco [...] Fill Date: 09/01/17 Quantity: 180 Janelle Flowers [facility] [phone] INE SPECIALIST documented in this encounter Plan of Treatment Not on filedocumented as of this encounter Visit Diagnoses Diagnosis Kidney transplanted Kidney replaced by transplant documented in this encounter Care Teams Commercial Artist Lettering Relationship Specialty Start Date End Date Momo Forbes PCP - General Family Practice 01/02/14 [facility] [address] [place] [address] documented as of this encounter
--- OUTSIDE RECORDS SUMMARY | 2022-04-14 11:06 | XMS_ITS | Encounter Summary ---
:1950 Author Organization [place] Address [address] [place] [address] Care Team Providers Name Role Phone Momo Forbes Primary Care Provider Encounter Details Date Type Department Care Team Description 05/31/[address] [facility] Loy Morales Kid ney replaced by [facility] MD transplant Laboratory 420 [facility] 500 [facility] 609 [place] [phone] (Wo rk) Social History Tobacco Use Types [...] (ABNORMAL) Tacrolimus level (05/30/2017 1:01 PM CDT) [facility] Method Time Signature Tacrolimus Last 05/29/17 05/31/2017 [facility] Dose 1930 1:05 PM CDT [facility] Tacrolimus 3.0 (L) 5.0 - 05/31/2017 [facility] 15.0 ug/L 7:54 PM CDT [facility] Comment: Tacrolimus Reference Range Kidney [...] its performa nce characteristics determined by the [facility], ??Special Chemistry Laboratory. It has not [...] Number [facility] 500 [place], [place] [address] [place] [address] documented in this encounter Visit Diagnoses Diagnosis Kidney replaced by transplant documented in this encounter Care Teams Hydraulic Strainer Operator Relationship Specialty Start Date End Date Momo Forbes PCP - General Family Practice 01/02/14 [facility] [address] [place] [address] documented as of this encounter
--- OUTSIDE RECORDS SUMMARY | 2022-04-14 11:06 | XMS_ITS | Encounter Summary ---
:1950 Author Organization [place] Address [address] [place] [address]. [place] [address] Care Team Providers Name Role Phone Momo Forbes Primary Care Provider Reason for Visit Reason Onset Date Comments Refill Request 08/31/2017 mycophenolate Encounter Details Date Type Department Care Team Description 08/31/2017 Refill [facility] Mariano, Joseph Refill R equest Transplant Clinic MD Herminio (mycophenolate) [address] [place] [phone] [place] [address] (Wo rk) Social History Tobacco [...] transplant documented in this encounter Care Teams Cryogenics Repairer Relationship Specialty Start Date End Date Momo Forbes PCP - General Family Practice 01/02/14 [facility] [address] [place], [place] [address] documented as of this encounter
--- OUTSIDE RECORDS SUMMARY | 2022-04-14 11:06 | XMS_ITS | Encounter Summary ---
:1950 Author Organization [place] Address [address] [facility] [address] Care Team Providers Name Role Phone Momo Forbes A Primary Care Provider Reason for Visit Reason Onset Date Comments Refill Request 06/28/2017 mycophenolate Encounter Details Date Type Department Care Team Description 06/28/2017 [facility]ill [facility] Mariano, Joseph Refill R equest Transplant Clinic MD Herminio (mycophenolate) [address] [place] [phone] [place] [address] (Wo rk) Social History [...] Fill Date: 05/31/17 Quantity: 180 Janelle Flowers [facility] [phone] R LEATHER SORTER documented in this encounter Plan of Treatment Not on filedocumented as of this encounter Visit Diagnoses Diagnosis Kidney transplanted - Primary Kidney replaced by transplant documented in this encounter Care Teams Account Resolution Analyst Relationship Specialty Start Date End Date Momo Forbes PCP - General Family Practice 01/02/[address] [address] documented as of this encounter
--- OUTSIDE RECORDS SUMMARY | 2022-04-14 11:06 | XMS_ITS | Encounter Summary ---
:1950 Author Organization [place] Address [address] [place] [address]. [place] [address] Care Team Providers Name Role Phone Momo Forbes Primary Care Provider Encounter Details Date Type Department Care Team Description 11/10/2017 [facility] [place] [address] [phone] Social History Tobacco Use Types Packs/Day Years [...] disease documented in this encounter Care Teams Slitting Machine Operator Helper Relationship Specialty Start Date End Date Momo Forbes PCP - General Family Practice 01/02/14 [facility] [address] [place] [address] documented as of this encounter
--- OUTSIDE RECORDS SUMMARY | 2022-04-14 11:06 | XMS_ITS | Encounter Summary ---
:1950 Author Organization [place] Address [address] [place] [address]. [place] [address] Care Team Providers Name Role Phone Momo Forbes Primary Care Provider Reason for Visit Reason Onset Date Comments Refill Request 10/11/2017 Encounter Details Date Type Department Care Team Description 10/11/2017 Refill [facility] Transplant Debbie Calderon LPN Refill Request Clinic [address] [place] [address] [phone] Social History Tobacco Use Types Packs/Day [...] transplant documented in this encounter Care Teams Tie Mill Operator Relationship Specialty Start Date End Date Momo Forbes PCP - General Family Practice 01/02/14 [facility] [address] [place] [address] documented as of this encounter
--- OUTSIDE RECORDS SUMMARY | 2022-04-14 11:06 | XMS_ITS | Encounter Summary ---
:1950 Author Organization [place] Address [address] [place] [address] Care Team Providers Name Role Phone Forbes, Momo He Primary Care Provider Reason for Visit Reason Comments RECHECK Kidney tx follow up Encounter Details Date Type Department Care Team Description 10/10/[address] [facility] Shiva Presley Sta tus post kidney transplant (Primary Dx); Nephrology Clinic Immunosuppression (H); [facility] Type 2 diabetes mellitus wit h stage 3 chronic kidney disease, with long-term current use of insulin (H); [address] [place] [address] Benign essential hypertension; [address] Hyperlipidemia, unspecified hyperlipidemia type; [place], [place] RANJAN 220 Skin cancer screening [phone] [place] [address] (Wo rk) Social History Tobacco [...] Comments Blood Pressure 153/74 10/10/2017 2:25 PM REGULATORY LAW SPECIALIST Pulse 55 10/10/2017 2:25 PM REGULATORY LAW SPECIALIST Temperature 36.7 ??C (98.1 ??F) 10/10/2017 2:25 PM REGULATORY LAW SPECIALIST Respiratory Rate - - Oxygen Saturation 98% 10/10/2017 2:25 PM REGULATORY LAW SPECIALIST Inhaled Oxygen Concentration - - Weight 135.4 kg (298 lb 6.4 oz) 10/10/2017 2:25 PM REGULATORY LAW SPECIALIST Height 182.9 cm (6') 10/10/2017 2:25 PM REGULATORY LAW SPECIALIST Body Mass Index 40.47 10/10/2017 2:25 PM REGULATORY LAW SPECIALIST documented in this encounter Progress Notes Shiva [...] is well as a referral to his farm implement engine mechanic for monitoring for any skin cancers. 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 LATORY LAW SPECIALIST documented in this encounter Nursing Notes [place] [...] Medication Reconciliation: complete MONROE ZURITA CMA . LATORY LAW SPECIALIST documented in this encounter Plan of [...] skin documented in this encounter Care Teams Credit Assistant Relationship Specialty Start Date End Date Momo Forbes PCP - General Family Practice 01/02/14 [facility] [address] [place] [address] documented as of this encounter
--- OUTSIDE RECORDS SUMMARY | 2022-04-14 11:06 | XMS_ITS | Encounter Summary ---
:1950 Author Organization [place] Address [address] [place] [address]. [place] [address] Care Team Providers Name Role Phone Momo Forbes Primary Care Provider Reason for Visit Reason Onset Date Comments Transplant Pharmacy Medication Review 01/19/2018 Encounter Details Date Type Department Care Team Description 01/19/2018 Telephone [facility] Beny Staton, Transplant Pharmacy [address] [facility] [place] [address] [facility] [phone] [place]Y [place], [place] [address] Social History Tobacco Use Types Packs/Day Years [...] filedocumented in this encounter Care Teams Director Of Preclinical Research Relationship Specialty Start Date End Date Momo Forbes PCP - General Family Practice 01/02/14 [facility] [address] [place] [address] documented as of this encounter
--- OUTSIDE RECORDS SUMMARY | 2022-04-14 11:06 | XMS_ITS | Encounter Summary ---
:1950 Author Organization [place] Address [address] [place] [address] Care Team Providers Name Role Phone Momo Forbes Primary Care Provider Encounter Details Date Type Department Care Team Description 11/03/2017 Orders Only [facility] Loy Morales Kid ney replaced by [facility] MD transplant Laboratory 420 [facility] 500 [facility] 609 [place] [phone] (Wo rk) Social History Tobacco Use Types [...] Results Tacrolimus level (11/03/2017 11:30 AM CDT) [facility] Method Time Signature Tacrolimus Not Provided 11/05/2017 [facility] Last Dose 2:20 PM CDT [facility] Tacrolimus 10.7 5.0 - 11/06/2017 [facility] 15.0 ug/L 1:00 PM CDT [facility] Comment: Tacrolimus Reference Range Kidney [...] its performa nce characteristics determined by the [facility], ??Special Chemistry Laboratory. It has not [...] Address City/State/ZIP Code Phon e Number [phone] [place] [address] documented in this encounter Visit Diagnoses Diagnosis Kidney replaced by transplant documented in this encounter Care Teams Ems Educator Relationship Specialty Start Date End Date Momo Forbes PCP - General Family Practice 01/02/14 [facility] [address] [place] [address] documented as of this encounter
--- OUTSIDE RECORDS SUMMARY | 2022-04-14 11:06 | XMS_ITS | Encounter Summary ---
:1950 Author Organization [place] Address [address] [facility] [place] [address] Care Team Providers Name Role Phone Momo Forbes A Primary Care Provider Reason for Visit Reason Onset Date Comments Appointment 08/24/2018 Encounter Details Date Type Department Care Team Description 08/24/2018 Telephone [facility] Nephrology Romi Garcia, RN Appointment [facility] [phone] ([facility]) [address] [place] [address] [phone] Social History Tobacco Use Types Packs/Day [...] patient to call back. Romi Rodriguez RN ER AND PULPER FEEDER Telephone Encounter - Romi Rodriguez RN - 08/24/2018 1:54 PM CST Left voicemail for patient to call back (follow up from last transplant appointment). Romi Rodriguez, RN ER AND PULPER FEEDER documented in this encounter Plan of Treatment Not on filedocumented as of this encounter Visit Diagnoses Not on filedocumented in this encounter Care Teams Bird Tender Relationship Specialty Start Date End Date Momo Forbes PCP - General Family Practice 01/02/[address] [address] documented as of this encounter
--- OUTSIDE RECORDS SUMMARY | 2022-04-14 11:06 | XMS_ITS | Encounter Summary ---
:1950 Author Organization [place] Address [facility] [place] [address] Care Team Providers Name Role Phone ForbesMomo santiago A Primary Care Provider Reason for Visit Reason Onset Date Comments Transplant 06/01/2017 Diego returning call Left on 06/05/17 Encounter Details Date Type Department Care Team Description 06/01/2017 [facility] Shiva Kahn, regional business development manager ([place] Transplant Clinic [facility] returning call Left [facility] on 06/05/17) [place], [place] [address] [place], [place] [phone] [address] Social History Tobacco Use Types Packs/Day [...] care to get a good 12-hour level. PIEROGI MAKER TASK: Please fax lab order for tacrolimus level Telephone Encounter - Mary Whitehead - 06/06/2017 7:47 AM CDT Please call Diego. Called on Tuesday left to call him on Tuesday06/06/17. ADDENDUM: PIEROGI MAKER TASK: Call with questions and instruction per [...] filedocumented in this encounter Care Teams Manager Personal Relationship Specialty Start Date End Date Momo Forbes PCP - General Family Practice 01/02/14 [facility] [address] [place] [address] documented as of this encounter
--- OUTSIDE RECORDS SUMMARY | 2022-04-14 11:06 | XMS_ITS | Encounter Summary ---
:1950 Author Organization [place] Address [address] [place] [address]. [place] [address] Care Team Providers Name Role Phone Momo Forbes Primary Care Provider Reason for Visit Reason Onset Date Comments Erroneous encounter-disregard 05/17/2018 Encounter Details Date Type Department Care Team Description 05/17/2018 Telephone [facility] Etcheverry, Erroneous Transplant Clinic BOGDAN Lopes encounter-disregard [address] [place] [phone] Social History Tobacco Use Types Packs/Day [...] on filedocumented in this encounter Care Teams Jewelry Model Maker Relationship Specialty Start Date End Date Momo Forbes PCP - General Family Practice 01/02/14 [facility] [address] [place] [address] documented as of this encounter
--- OUTSIDE RECORDS SUMMARY | 2022-04-14 11:06 | XMS_ITS | Encounter Summary ---
:1950 Author Organization [place] Address [facility] [place] [address] Care Team Providers Name Role Phone Momo Forbes Primary Care Provider Joseph Quintana MD Unavailable Encounter Details Date Type Department Care Team Description 09/09/2017 External Order [facility] Nurse, [facility] Kidney replaced by Results Transplant Clinic transplant [address] [place] [phone] Social History Tobacco Use Types Packs/Day [...] 07/15/2017 10:48 AM Result s for this OBIEE LEAD DEVELOPER procedure are i n the results section. BASIC METABOLIC Routine 07/15/2017 10:48 AM Kidney replaced by Results for this PANEL OBIEE LEAD DEVELOPER transplant procedure are i n the results [...] Results (ABNORMAL) Hemoglobin A1c (07/15/2017 10:48 AM OBIEE LEAD DEVELOPER) Patholo gist Method Time Signature Hemoglobin A1C >14.0 (H) <=6.4 % LABDE SCAN (External) Specimen (Source) Anatomical Collection Method Collection Time Re ceived Time Location / / Volume Laterality Blood specimen 07/15/2017 10:48 (specimen) AM OBIEE LEAD DEVELOPER Narrative ZACHERYMARIELABea PFT - 09/09/2017 9:36 PM OBIEE LEAD DEVELOPER Verified by Sharon Martinez on 8. Patient Reported LAB - BLOOD ORDERABLES Performing Organization Address City/State/ZIP Code Phon e Number JESSICA PFT LABDE SCAN (ABNORMAL) Basic metabolic panel (07/15/2017 10:48 AM OBIEE LEAD DEVELOPER) Analysis Performed At Patho logist Time Signature [...] 55 (L) >60 LABDE SCAN (if ml/min/1.7 Togolese) 3m2 (External) GFR Estimated 46 (L) >60 LABDE SCAN (External) ml/min/1.7 3m2 Specimen (Source) Anatomical Collection Method Collection Time Re ceived Time Location / / Volume Laterality Blood specimen 07/15/2017 10:48 (specimen) AM OBIEE LEAD DEVELOPER Narrative BREEZE PFT - 09/09/2017 9:36 PM OBIEE LEAD DEVELOPER Verified by Sharon Martinez on 8. [place] [...] Narrative BREEZE PFT - 09/09/2017 9:39 PM OBIEE LEAD DEVELOPER Verified by Sharon Martinez on 8. Patient [...] Narrative BREEZE PFT - 09/09/2017 9:39 PM OBIEE LEAD DEVELOPER Verified by Sharon Martinez on 8. [place] [...] 51 (L) >60 LABDE SCAN (if ml/min/1.7 Togolese) 3m2 (External) GFR Estimated 42 (L) >60 LABDE SCAN (External) ml/min/1.7 3m2 Specimen (Source) Anatomical Collection Method Collection Time Re ceived Time Location / / Volume Laterality Blood specimen 05/30/2017 9:32 AM (specimen) CDT Narrative BREEZE PFT - 09/09/2017 9:39 PM OBIEE LEAD DEVELOPER Verified by Sharon Martinez on 8. [place] [...] Narrative BREEZE PFT - 09/09/2017 9:44 PM OBIEE LEAD DEVELOPER Verified by Sharon Martinez on 8. Patient [...] Narrative BREEZE PFT - 09/09/2017 9:44 PM OBIEE LEAD DEVELOPER Verified by Sharon Martinez on 8. Patient [...] Narrative BREEZE PFT - 09/09/2017 9:44 PM OBIEE LEAD DEVELOPER Verified by Sharon Martinez on 8. Patient [...] 55 (L) >60 LABDE SCAN (if ml/min/1.7 Togolese) 3m2 (External) GFR Estimated 46 (L) >60 LABDE SCAN (External) ml/min/1.7 3m2 Specimen (Source) Anatomical Collection Method Collection Time Re ceived Time Location / / Volume Laterality Blood specimen 01/19/2017 9:30 AM (specimen) CDT Narrative JESSICA PFT - 09/09/2017 9:44 PM OBIEE LEAD DEVELOPER Verified by Sharon Martinez on 8. Patient Reported LAB - BLOOD ORDERABLES Performing Organization Address City/State/ZIP Code Phon e Number BREEZBea PFT LABDE SCAN documented in this encounter Visit Diagnoses Diagnosis Kidney replaced by transplant documented in this encounter Care Teams Audit Tech Relationship Specialty Start Date End Date Momo Forbes PCP - General Family Practice 01/02/14 [facility] [address] [place] [address] Joseph Quintana, Assigned Nephrology 03/29/21 Provider 717 [facility] 353 [facility] [address] [place] [address] documented as of this encounter
--- OUTSIDE RECORDS SUMMARY | 2022-04-14 11:07 | XMS_ITS | Encounter Summary ---
:1950 Author Organization [place] Address [address] [place] [address]. [place] [address] Care Team Providers Name Role Phone Momo Forbes Primary Care Provider Reason for Visit Reason Onset Date Comments Transplant 03/15/2016 refill Encounter Details Date Type Department Care Team Description 03/15/[address] [facility] Cristy Chen LPN T ransplant (refill) Transplant Clinic [address] [place] [phone] Social History Tobacco Use Types Packs/Day [...] transplant documented in this encounter Care Teams Tree Wrapper Relationship Specialty Start Date End Date Momo Forbes PCP - General Family Practice 01/02/14 [facility] [address] [place] [address] documented as of this encounter
--- OUTSIDE RECORDS SUMMARY | 2022-04-14 11:07 | XMS_ITS | Encounter Summary ---
:1950 Author Organization [place] Address [address] [place] [address]. [place] [address] Care Team Providers Name Role Phone Momo Forbes Primary Care Provider Reason for Visit Reason Onset Date Comments Transplant Pharmacy Medication Review 02/05/2016 Encounter Details Date Type Department Care Team Description 02/05/2016 Telephone [facility] Nani Humphrey, [facility] Transplant Pharmacy 500 [facility] [place] [address] [facility] [phone] [place] [address] (Wo rk) Social History Tobacco Use Types [...] filedocumented in this encounter Care Teams Tobacco Sizer Relationship Specialty Start Date End Date Momo Forbes PCP - General Family Practice 01/02/14 [facility] [address] [place] [address] documented as of this encounter
--- OUTSIDE RECORDS SUMMARY | 2022-04-14 11:07 | XMS_ITS | Encounter Summary ---
:1950 Author Organization [place] Address [facility] [place] [address] Care Team Providers Name Role Phone Momo Forbes Primary Care Provider Joseph Quintana MD Unavailable Encounter Details Date Type Department Care Team Description 08/18/[address] [facility] Nurse, [facility] Transplant Clinic [address] [place] [address] Social History Tobacco Use Types [...] 08/09/2016 12:21 PM Results for this RESULTS IT SECURITY PROJECT MANAGER procedure are i n the results section. documented in this encounter Results (ABNORMAL) TXP External Lab Result (08/09/2016 12:21 PM IT SECURITY PROJECT MANAGER) Analysis Performed At Patho logist Time [...] / / Volume Laterality 08/09/2016 12:21 PM IT SECURITY PROJECT MANAGER Narrative BREEZE PFT - 08/18/2016 1:35 PM IT SECURITY PROJECT MANAGER Verified by Jessica Major on 016. Patient Reported LABORATORY Performing Organization Address City/State/ZIP Code Phon e Number BREEZE PFT LABDE SCAN documented in this encounter Visit Diagnoses Not on filedocumented in this encounter Care Teams Cell Changer Relationship Specialty Start Date End Date Momo Forbes PCP - General Family Practice 01/02/14 [facility] [address] [place], [place] [phone] Joseph Quintana, Assigned Nephrology 03/29/21 MD Provider [address] [place] [address] 353 [facility] [address] [place], [place] [address] documented as of this encounter
--- OUTSIDE RECORDS SUMMARY | 2022-04-14 11:07 | XMS_ITS | Encounter Summary ---
:1950 Author Organization [place] Address [address] [place] [address] Care Team Providers Name Role Phone Momo Forbes A Primary Care Provider Encounter Details Date Type Department Care Team Description 07/22/2016 Orders Only [facility] Mariano, Joseph Perdomo isael, [facility] [place] 500 [facility] 717 [place], [place] [phone] [address] [address] [place] [address] (Wo rk) Social History Tobacco [...] Res ults for this MASS SPECTROMETRY PM SCHOOL AGE LEAD TEACHER procedure are in the results section. documented in this encounter Results (ABNORMAL) Tacrolimus level (08/09/2016 12:15 PM SCHOOL AGE LEAD TEACHER) [facility] Method Time Signature Tacrolimus Last 08/08/[address] Tacrolimus 3.8 (L) 5.0 - [facility] Level 15.0 ug/L [facility] Comment: [...] perform ance characteristics determined by the [facility], ??Special Chemistry Laboratory. It has not been cleared or approved by the FDA . The laboratory is regulated under CLIA as qualified to perform high-complexity testing. This test is used for clinical purposes. It should not be regarded as investigational or for research. Specimen Anatomical Collection Method Collection Time Receive d Time (Source) Location / / Volume Laterality 08/09/2016 12:15 08/11/2016 PM SCHOOL AGE LEAD TEACHER 10:15 AM SCHOOL AGE LEAD TEACHER Deysi Alicea MD LAB - BLOOD ORDERABLES Performing Organization Address City/State/ZIP Code Phon e Number [facility] [address] documented in this encounter Visit Diagnoses Not on filedocumented in this encounter Care Teams Tailings Dam Pumper Relationship Specialty Start Date End Date Momo Frobes PCP - General Family Practice 01/02/14 [facility] [address] [place] [address] documented as of this encounter
--- OUTSIDE RECORDS SUMMARY | 2022-04-14 11:07 | XMS_ITS | Encounter Summary ---
:1950 Author Organization [place] Address [address] [place] [address]. [place] [address] Care Team Providers Name Role Phone Momo Forbes Primary Care Provider Reason for Visit Reason Onset Date Comments Transplant 02/06/2016 refill Encounter Details Date Type Department Care Team Description 02/06/2016 Refill [facility] Cristy Chen LPN T ransplant (refill) Transplant Clinic [address] [place] [phone] Social History Tobacco Use Types Packs/Day [...] transplant documented in this encounter Care Teams Data Analyst Report Writer Relationship Specialty Start Date End Date Momo Forbes PCP - General Family Practice 01/02/14 [facility] 1999 [place] [address] documented as of this encounter
--- OUTSIDE RECORDS SUMMARY | 2022-04-14 11:07 | XMS_ITS | Encounter Summary ---
:1950 Author Organization [place] Address [address] [place] [address]. [place] [address] Care Team Providers Name Role Phone Momo Forbes Primary Care Provider Reason for Visit Reason Onset Date Comments Transplant 02/19/2016 refill Encounter Details Date Type Department Care Team Description 02/19/2016 Refill The Transplant Deysi Burns MD Transplant (refill) 2nd Floor, Clinic [address] [place] [address] [facility] [place] [address] Social History Tobacco Use Types [...] transplant documented in this encounter Care Teams Steam Presser Relationship Specialty Start Date End Date Momo Forbes PCP - General Family Practice 01/02/14 [facility] [address] [place], [place] [phone] documented as of this encounter
--- OUTSIDE RECORDS SUMMARY | 2022-04-14 11:07 | XMS_ITS | Encounter Summary ---
:1950 Author Organization [place] Address [address] [place] [address]. [place] [address] Care Team Providers Name Role Phone Ingrid Santana RN Unavailable Momo Forbes Primary Care Provider Encounter Details Date Type Department Care Team Description 08/29/2015 Orders Only The Transplant Deepa Morgan Aftercare following organ tr ansplant (Primary Dx); 2nd Floor, Clinic 2A Saima Kidney replaced by transplan t; Tommy Wilburn [facility] er for long-term current use of medication [address] [phone] Social History Tobacco Use Types [...] edication documented in this encounter Care Teams Speed Runner Relationship Specialty Start Date End Date Momo Forbes PCP - General Family Practice 01/02/14 [facility] [address] [place] [address] Ingrid Santana, RN Registered Nurse Transplant 02/10/12 10/01/15 documented as of this encounter
--- OUTSIDE RECORDS SUMMARY | 2022-04-14 11:07 | XMS_ITS | Encounter Summary ---
:1950 Author Organization [place] Address [address] [place] [address]. [place] [address] Care Team Providers Name Role Phone Momo Forbes Primary Care Provider Encounter Details Date Type Department Care Team Description 03/23/2017 Orders Only [facility] Orlando Richey Kidne y replaced by Nephrology Clinic transplant (Primary [address] Dx) [address] [place] [phone] Social History Tobacco Use Types Packs/Day [...] Primary documented in this encounter Care Teams Pastry Cook Relationship Specialty Start Date End Date Momo Forbes PCP - General Family Practice 01/02/14 [facility] [address] [place] [address] documented as of this encounter
--- OUTSIDE RECORDS SUMMARY | 2022-04-14 11:07 | XMS_ITS | Encounter Summary ---
:1950 Author Organization [place] Address [facility] [place] [address] Care Team Providers Name Role Phone Ingrid Santana RN Unavailable Momo Forbes Primary Care Provider Reason for Visit Reason Onset Date Comments Patient Reminder 08/28/2015 Encounter Details Date Type Department Care Team Description 08/28/2015 Telephone Nephrology Yesenia Clements CMA Patient Reminder 2nd Floor, Clinic [address] [place], [place] [phone] Social History Tobacco Use Types Packs/Day [...] Patient confirmed and understood. Yesenia Clements CMA ORIZER OPERATOR documented in this encounter Plan of Treatment Not on filedocumented as of this encounter Visit Diagnoses Not on filedocumented in this encounter Care Teams Manager Distribution Center Relationship Specialty Start Date End Date Momo Forbes PCP - General Family Practice 01/02/14 [facility] [address] [place] [address] Ingrid Santana, RN Registered Nurse Transplant 02/10/12 10/01/15 documented as of this encounter
--- OUTSIDE RECORDS SUMMARY | 2022-04-14 11:07 | XMS_ITS | Encounter Summary ---
:1950 Author Organization [place] Address [facility] [place] [address] Care Team Providers Name Role Phone Ingrid Santana RN Unavailable Momo Forbes Primary Care Provider Reason for Referral Consultation - Closed Specialty Diagnoses / Procedures Referred By Contact Refer red To Contact Diagnoses Morbid obesity due to excess calories (H) Deysi Alicea MD [facility] [address] [place] [address] Referral ID Status Reason Start Date Expiration Date Visits Requ ested Visits Authorized [id number] Closed 09/02/2015 09/01/2016 1 1 E HANDLER Reason for Visit Reason Comments RECHECK Follow up Kidney TX 4 Encounter Details Date Type Department Care Team Description 09/02/2015 Office Visit Nephrology Deysi Alicea, S/P kidney transplant (Prima ry Dx); 2nd Floor, Clinic 2A Morbid obesity due to excess calories (H ) Tommy Wilburn [address] [place] [phone] [place] [address] (Wo rk) [phone] Social History Tobacco Use Types Packs/Day Years [...] Comments Blood Pressure 128/72 09/02/2015 4:32 PM BROKE HANDLER Pulse 61 09/02/2015 4:32 PM BROKE HANDLER Temperature 36.7 ??C (98 ??F) 09/02/2015 4:32 PM BROKE HANDLER Respiratory Rate - - Oxygen Saturation 94% 09/02/2015 4:32 PM BROKE HANDLER Inhaled Oxygen Concentration - - Weight 141.8 kg (312 lb 9.6 oz) 09/02/2015 4:32 PM BROKE HANDLER Height 182.9 cm (6' 0.01) 09/02/2015 4:32 PM BROKE HANDLER Body Mass Index 42.39 09/02/2015 4:32 PM BROKE HANDLER documented in this encounter Progress Notes Deysi [...] discharged on Cumadin; Cumadin was stopped by international flight attendant during the follow up visit, as he [...] Years of Education: 14 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 BP completed using cuff size: large E HANDLER documented in this encounter Plan of Treatment [...] ) documented in this encounter Care Teams Cyber Security Instructor Relationship Specialty Start Date End Date Momo Forbes PCP - General Family Practice 01/02/14 [facility] [address] [place] [address] Ingrid Santana, RN Registered Nurse Transplant 02/10/12 10/01/15 documented as of this encounter
--- OUTSIDE RECORDS SUMMARY | 2022-04-14 11:07 | XMS_ITS | Encounter Summary ---
:1950 Author Organization [place] Address [facility] [place] [address] Care Team Providers Name Role Phone Momo Forbes Primary Care Provider Joseph Quintana MD Unavailable Encounter Details Date Type Department Care Team Description 03/18/2016 External Order Results [facility] Nurse, [facility] Transplant Clinic [address] [place] [address] Social History Tobacco Use Types [...] External Lab Result (03/17/2016 10:45 AM CDT) [facility] Method Time Signature Sodium (External) 139 135 [...] on filedocumented in this encounter Care Teams Diamond Powder Mixer Relationship Specialty Start Date End Date Momo Forbes PCP - General Family Practice 01/02/14 [facility] [address] [place] [address] Joseph Quintana, Assigned Nephrology 03/29/21 MD Provider [address] [place] [address] [address] [place] [address] documented as of this encounter
--- OUTSIDE RECORDS SUMMARY | 2022-04-14 11:07 | XMS_ITS | Encounter Summary ---
:1950 Author Organization [place] Address [address] [place] [address]. [place] [address] Care Team Providers Name Role Phone Momo Forbes Primary Care Provider Reason for Visit Reason Onset Date Comments Transplant 12/02/2016 refill Encounter Details Date Type Department Care Team Description 12/02/2016 Refill [facility] Anita Joshi MD Transplant (refill) Nephrology Clinic [address] [place] [phone] [place] [address] (Wo rk) [phone] Social History Tobacco Use Types Packs/Day Years [...] transplant documented in this encounter Care Teams Distillery Miller Helper Relationship Specialty Start Date End Date Momo Forbes PCP - General Family Practice 01/02/14 [facility] [address] [place] [address] documented as of this encounter
--- OUTSIDE RECORDS SUMMARY | 2022-04-14 11:07 | XMS_ITS | Encounter Summary ---
:1950 Author Organization [place] Address [address] [facility] [place] [address] Care Team Providers Name Role Phone Momo Forbes Primary Care Provider Reason for Visit Reason Onset Date Comments Pre Visit Planning - Unable To Reach 10/14/2016 Encounter Details Date Type Department Care Team Description 10/14/2016 Telephone [facility] Anita Joshi MD Pre Visit Planning - Nephrology Clinic [address] [place] [address] [place] ble To Reach [address] [place] [address] [phone] Social History Tobacco Use Types Packs/Day Years [...] is office from Clinic 3B at the [facility]. We are calling to remind you of your upcoming Nephrology appointment on 10/25/16 at 440pm. Please arrive about 1 hours prior to your appointment time for labs. Also, please bring an updated medication list or your labeled medication bottles with you to your appointment. If you have any questions or would like to cancel or reschedule your appointment, please call us at [phone]. You are welcome to have your labs done up to a week before your appointment at any [place] or [facility] facility. If you have your labs completed before your appointment, please still come 30 minutes early for check-in MONROE ZURITA CMA AND PENCILS DIPPER documented in this encounter Plan of Treatment Not on filedocumented as of this encounter Visit Diagnoses Not on filedocumented in this encounter Care Teams Light Oil Operator Relationship Specialty Start Date End Date Momo Forbes PCP - General Family Practice 01/02/14 [facility] [address] [place] [address] documented as of this encounter
--- OUTSIDE RECORDS SUMMARY | 2022-04-14 11:07 | XMS_ITS | Encounter Summary ---
:1950 Author Organization [place] Address [facility] [place] [address] Care Team Providers Name Role Phone Forbes, Ton Primary Care Provider Reason for Visit Reason Comments RECHECK 6 mo follow up,christiano cruz Encounter Details Date Type Department Care Team Description 04/20/2016 Office Visit [facility] Chucho Joshi, Renal hypertension, stage 1-4 or unspecified chronic kidney disease (Primary Dx); Nephrology Clinic Reactive depression; [address] Thrombocytopenia (H) 909 [facility] RANJAN [address] [place] [address] Social History Tobacco Use Types Packs/Day [...] Body Mass Index 41.55 09/02/2015 4:32 PM BOOKING PRIZER documented in this encounter Progress Notes Chucho [...] encounter Results Folate RBC (10/25/2016 3:54 PM BOOKING PRIZER) athologist Signature HCT Within 46.0 % [address] Folate RBC 663 ng/mL [facility] Comment: Reference range: >=366 (Note) Performed by inContact, [address] [place] [address] [email or web address], Geoff Reed MD, Lab. Director Specimen Anatomical Collection Method Collection Time Receive d Time (Source) Location / / Volume Laterality Blood specimen 10/25/2016 3:54 PM 017 3:55 (specimen) BOOKING PRIZER PM BOOKING PRIZER Chucho Joshi MD LAB - BLOOD ORDERABLES Performing Organization Address City/State/[facility] Code Phon e Number [address] [address] [facility] documented in this encounter Visit Diagnoses Diagnosis Renal hypertension, stage 1-4 or unspeci fied chronic kidney disease - Primary Reactive depression Dysthymic disorder Thrombocytopenia (H) Thrombocytopenia, unspecified documented in this encounter Care Teams Rn On Site Relationship Specialty Start Date End Date Momo Forbes PCP - General Family Practice 01/02/[address] [address] documented as of this encounter
--- OUTSIDE RECORDS SUMMARY | 2022-04-14 11:07 | XMS_ITS | Encounter Summary ---
:1950 Author Organization [place] Address [address] [facility] [place] [address] Care Team Providers Name Role Phone Momo Forbes Primary Care Provider Encounter Details Date Type Department Care Team Description 01/19/2017 Orders Only [facility] Loy Morales Aft ercare following organ transplant; [facility] Kidney replaced by transplant; Laboratory [address] [facility] Encounter for long-term curr ent use of medication [address] [place] [address] [phone] (Wo rk) Social History Tobacco Use Types [...] Results Tacrolimus level (01/19/2017 9:25 AM CDT) [facility] gist Method Time Signature Tacrolimus Last 0800 [facility] Dose 01/19/17 [facility] Tacrolimus 6.5 5.0 - [facility] 15.0 ug/L [facility] Comment: Tacrolimus Reference [...] its perform ance characteristics determined by the [facility], ??Special Chemistry Laboratory. It has [...] Organization Address City/State/ZIP Code Phon e Number [phone] [place] [address] documented in this encounter Visit Diagnoses Diagnosis Aftercare following organ transplant Kidney replaced by transplant Encounter for long-term current use of m edication documented in this encounter Care Teams Beverage Server Relationship Specialty Start Date End Date Momo Forbes PCP - General Family Practice 01/02/[address] [address] documented as of this encounter
--- OUTSIDE RECORDS SUMMARY | 2022-04-14 11:07 | XMS_ITS | Encounter Summary ---
:1950 Author Organization [place] Address [address] [place] [address]. [place] [address] Care Team Providers Name Role Phone Momo Forbes Primary Care Provider Reason for Visit Reason Onset Date Comments Transplant 01/16/2016 refill Encounter Details Date Type Department Care Team Description 01/16/2016 Refill The Transplant Deysi Burns MD Transplant (refill) 2nd Floor, Clinic 2A [id number] [place] [address] [facility] [place] [address] Social History Tobacco Use Types [...] transplant documented in this encounter Care Teams Agriculture Mechanic Relationship Specialty Start Date End Date Momo Forbes PCP - General Family Practice 01/02/14 [facility] [address] [place], [place] [id number] documented as of this encounter
--- OUTSIDE RECORDS SUMMARY | 2022-04-14 11:07 | XMS_ITS | Encounter Summary ---
:1950 Author Organization [place] Address On license of [facility] [place] [address] Care Team Providers Name Role Phone ForbesMomo prakash A Primary Care Provider Reason for Visit Reason Onset Date Comments Transplant Immunosuppression Management 08/13/2016 Encounter Details Date Type Department Care Team Description 08/13/2016 Telephone [facility] Shiva Kahn Transp lant Transplant Clinic RN Immunosuppression 9 [facility] Management [address] [address] [place] [address] [place], [place] [address] Social History Tobacco Use Types Packs/Day Years [...] Patient will repeat labs in 1-2 weeks. NICAL INSPECTOR Telephone Encounter - Shiva Kahn, RN - 08/13/2016 7:42 AM CST Tacrolimus level 3.8 reported as 18-hour level. PLAN: Verify timing of labs tac dose and time of blood draw for tac level. Repeat tac level taking care to get a good 12-hour level (11-13 hours acceptable). TASK: Please call patient with questions and instructions per plan. NICAL INSPECTOR documented in this encounter Plan of Treatment Not on filedocumented as of this encounter Visit Diagnoses Diagnosis Kidney replaced by transplant - Primary Aftercare following organ transplant Encounter for long-term current use of m edication documented in this encounter Care Teams Collet Maker Relationship Specialty Start Date End Date Momo Forbes PCP - General Family Practice 01/02/14 [facility] [address] [place] [address] documented as of this encounter
--- OUTSIDE RECORDS SUMMARY | 2022-04-14 11:07 | XMS_ITS | Encounter Summary ---
:1950 Author Organization [place] Address [address] [place] [address] Care Team Providers Name Role Phone ForbesMomo santiago A Primary Care Provider Encounter Details Date Type Department Care Team Description 02/20/2016 Orders Only [facility] Mariano, Joseph Perdomo isael, [facility] MICHELE 500 [facility] 717 [place], [place] [phone] [place] [address] [place] [address] (Wo rk) Social History Tobacco [...] (ABNORMAL) Tacrolimus level (03/17/2016 10:44 AM CDT) [facility] Method Time Signature Tacrolimus Last 2100 [facility] Dose 03/16/16 [facility] Tacrolimus 4.2 (L) 5.0 - [facility] Level 15.0 ug/L [facility] Comment: Tacrolimus Reference Range Kidney Transplant [...] its perform ance characteristics determined by the [facility], ??Special Chemistry Laboratory. It has not [...] Phon e Number [facility] 500 [place], [place] [phone] [place] [address] documented in this encounter Visit Diagnoses Not on filedocumented in this encounter Care Teams Prospecting Driller Helper Relationship Specialty Start Date End Date Momo Forbes PCP - General Family Practice 01/02/14 [facility] [address] [place] [address] documented as of this encounter
--- OUTSIDE RECORDS SUMMARY | 2022-04-14 11:07 | XMS_ITS | Encounter Summary ---
:1950 Author Organization [place] Address [address] [place] [address] Care Team Providers Name Role Phone ForbesMomo santiago A Primary Care Provider Encounter Details Date Type Department Care Team Description 05/30/2017 Hospital Encounter [facility] Orlando Richey, [facility] [address] [phone] (Wo rk) Social History Tobacco Use Types [...] on filedocumented in this encounter Care Teams Intermediate Frame Tender Relationship Specialty Start Date End Date Momo Forbes PCP - General Family Practice 01/02/14 [facility] [address] [place] [address] documented as of this encounter
--- OUTSIDE RECORDS SUMMARY | 2022-04-14 11:07 | XMS_ITS | Encounter Summary ---
:1950 Author Organization [place] Address [address] [place] [address]. [place] [address] Care Team Providers Name Role Phone Momo Forbes Primary Care Provider Reason for Visit Reason Onset Date Comments Transplant 05/26/2017 refill Encounter Details Date Type Department Care Team Description 05/26/2017 Refill [facility] Anita Joshi MD Transplant (refill) Nephrology Clinic [address] [place] [id number] [place] [address] (Wo rk) [address] [phone] Social History Tobacco Use Types Packs/Day Years [...] documented in this encounter Care Teams Watch Manufacturing Supervisor Relationship Specialty Start Date End Date Momo Forbes PCP - General Family Practice 01/02/14 [facility] [address] [place] [address] documented as of this encounter
--- OUTSIDE RECORDS SUMMARY | 2022-04-14 11:07 | XMS_ITS | Encounter Summary ---
:1950 Author Organization [place] Address [facility] [place] [address] Care Team Providers Name Role Phone ForbesMomo prakash A Primary Care Provider Encounter Details Date Type Department Care Team Description 10/25/2016 Orders Only [facility] Thrombocytopenia (H); [address] Aftercare following organ tr ansplant; 1st Floor Kidney replaced by transplan t; [place], [place] Encounter fo r long-term current use [...] Thrombocytopenia (H) Resu lts for this PM FORESTRY WORKER procedure are i n the results section. BASIC METABOLIC Routine 10/25/2016 3:54 Aftercare following Re sults for this PANEL PM FORESTRY WORKER organ transplant procedure are in Kidney replaced by the resul ts transplant section. Encounter for long-term current use of medication CBC WITH PLATELETS Routine 10/25/2016 3:54 Aftercare following Results for this PM FORESTRY WORKER organ transplant procedure are in Kidney replaced by the [facility] ts transplant section. Encounter for long-term current use of medication PROTEIN RANDOM Routine 10/25/2016 3:52 Aftercare following Res ults for this URINE PM FORESTRY WORKER organ transplant procedure are in Kidney replaced by the [facility] ts transplant section. Encounter for long-term current use of medication CREATININE URINE Routine 10/25/2016 3:52 Thrombocytopenia (H) Results for this CALCULATION ONLY PM FORESTRY WORKER procedure a re in (LAB ONLY) the results section. documented in this encounter Results (ABNORMAL) Basic metabolic panel (10/25/2016 3:54 PM FORESTRY WORKER) [facility] Method Time Signature Sodium 142 133 - 144 [facility] mmol/L [facility] Potassium 4.2 3.4 - 5.3 [facility] mmol/L [facility] Chloride 108 94 - 109 [facility] mmol/L [facility] Carbon Dioxide 28 20 - 32 [facility] mmol/L [facility] Anion Gap 7 3 - 14 [facility] mmol/L [facility] Glucose 120 (H) 70 - 99 [facility] mg/dL [facility] Urea Nitrogen 19 7 - 30 [facility] mg/dL [facility] Creatinine 1.39 (H) 0.66 - [facility] 1.25 mg/dL [facility] GFR Estimate 51 (L) >60 [facility] mL/min/1.7 [place] m2 [facility] Comment: Non GFR Calc GFR Estimate If Black 62 >60 mL/min/1.7m2 [facility] Comment: GFR Calc Calcium 9.4 8.5 - 10.1 mg/dL [facility] Specimen Anatomical Collection Method Collection Time Receive d Time (Source) Location / / Volume Laterality Blood specimen 10/25/2016 3:54 PM 017 3:55 (specimen) FORESTRY WORKER PM FORESTRY WORKER Chucho Joshi MD LAB - BLOOD ORDERABLES Performing Organization Address City/State/ZIP Code Phon e Number [address] [phone] [facility] (ABNORMAL) CBC with platelets (10/25/2016 3:54 PM FORESTRY WORKER) Analysis Performed At Patho logist Time Signature WBC 5.1 4.0 - 11.0 [facility] 10e9/L [facility] RBC Count 5.50 4.4 - 5.9 [facility] 10e12/L [facility] Hemoglobin 15.5 13.3 - [facility] 17.7 g/dL [facility] Hematocrit 46.0 40.0 - [facility] 53.0 % [facility] MCV 84 78 - 100 [facility] fl [facility] MCH 28.2 26.5 - [facility] 33.0 pg [facility] MCHC 33.7 31.5 - [facility] 36.5 g/dL [facility] RDW 14.1 10.0 - [facility] 15.0 % [facility] Platelet Count 124 (L) 150 - 450 [facility] 10e9/L [facility] Specimen Anatomical Collection Method Collection Time Receive d Time (Source) Location / / Volume Laterality Blood specimen 10/25/2016 3:54 PM 017 3:55 (specimen) FORESTRY WORKER PM FORESTRY WORKER Chucho Joshi MD LAB - BLOOD ORDERABLES Performing Organization Address City/[facility] [place] [address] [facility] Folate RBC (10/25/2016 3:54 PM FORESTRY WORKER) P athologist Signature HCT Within 46.0 % [facility] Past 24h [facility] Folate RBC 663 ng/mL [facility] Comment: Reference range: >=366 (Note) Performed by [employer], [address] [place] [id number] [email or web address], Geoff Reed MD, Lab. Director Specimen Anatomical Collection Method Collection Time Receive d Time (Source) Location / / Volume Laterality Blood specimen 10/25/2016 3:54 PM 017 3:55 (specimen) FORESTRY WORKER PM FORESTRY WORKER Chucho Joshi MD LAB - BLOOD ORDERABLES Performing Organization Address City/[facility]/ZIP Code Phon e Number [address] [phone] [facility][note 3] Creatinine urine calculation only (10/25/2016 3:52 PM FORESTRY WORKER) P athologist Signature Creatinine 152 mg/dL [facility] Specimen Anatomical Collection Method Collection Time Receive d Time (Source) Location / / Volume Laterality 10/25/2016 3:52 PM 201 7 4:12 FORESTRY WORKER PM FORESTRY WORKER Chucho Joshi MD LAB - URINE ORDERABLES Performing Organization Address City/State/ZIP Code Phon e Number M [facility] [address] [place] [address] [facility] [address] [place] [address], [place] [phone] (ABNORMAL) Protein random urine (10/25/2016 3:52 PM FORESTRY WORKER) Analysis Performed At Patho logist Time Signature Protein Random 0.48 g/L [facility] Protein Total 0.31 (H) 0 - 0.2 [place] Urine g/gr g/g Cr [facility] Specimen Anatomical Collection Method Collection Time Receive d Time (Source) Location / / Volume Laterality Urine specimen 10/25/2016 3:52 PM 017 4:12 (specimen) FORESTRY WORKER PM FORESTRY WORKER Chucho Joshi MD LAB - URINE ORDERABLES Performing Organization Address City/State/ZIP Code Phon e Number [facility] [address] [place] [phone] [facility] [address] [place] [phone], [place] [phone] documented in this encounter Visit Diagnoses Diagnosis Thrombocytopenia (H) Thrombocytopenia, unspecified Aftercare following organ transplant Kidney replaced by transplant Encounter for long-term current use of m edication documented in this encounter Care Teams Brass Pickler Relationship Specialty Start Date End Date Momo Forbes PCP - General Family Practice 01/02/14 [facility] [address] [place] [address] documented as of this encounter
--- OUTSIDE RECORDS SUMMARY | 2022-04-14 11:07 | XMS_ITS | Encounter Summary ---
:1950 Author Organization [place] Address [address] [place] [address]. [place] [address] Care Team Providers Name Role Phone Momo Forbes Primary Care Provider Reason for Visit Reason Onset Date Comments Transplant Pharmacy Medication Review 01/26/2017 Encounter Details Date Type Department Care Team Description 01/26/2017 Telephone [facility] Janes Rodriguez, Transplant Pharmacy 500 [facility] Medication [place] [phone] Social History Tobacco Use Types Packs/Day Years [...] filedocumented in this encounter Care Teams Project Administrator Relationship Specialty Start Date End Date Momo Forbes PCP - General Family Practice 01/02/14 [facility] [address] [place] [address] documented as of this encounter
--- OUTSIDE RECORDS SUMMARY | 2022-04-14 11:07 | XMS_ITS | Encounter Summary ---
:1950 Author Organization [place] Address [facility] [place] [address] Care Team Providers Name Role Phone ForbesMomo prakash A Primary Care Provider Reason for Visit Reason Comments RECHECK Kidney follow up Encounter Details Date Type Department Care Team Description 10/25/2016 Office Visit [facility] Anita Joshi MD Renal hypertension, Nephrology Clinic [address] [place] [address] 1-4 [address] [place] [address] unspecified chronic [address] [place], [place] [address] (Primary Dx) [address] [phone] Social History Tobacco Use Types Packs/Day Years [...] Comments Blood Pressure 168/83 10/25/2016 4:39 PM CAR BLOCKER Pulse 55 10/25/2016 4:39 PM CAR BLOCKER Temperature 36.8 ??C (98.3 ??F) 10/25/2016 4:39 PM CAR BLOCKER Respiratory Rate 18 10/25/2016 4:39 PM CAR BLOCKER Oxygen Saturation - - Inhaled Oxygen Concentration - - Weight 138.2 kg (304 lb 9.6 oz) 10/25/2016 4:39 PM CAR BLOCKER Height 182.9 cm (6') 10/25/2016 4:39 PM CAR BLOCKER Body Mass Index 41.31 10/25/2016 4:39 PM CAR BLOCKER documented in this encounter Progress Notes Chucho [...] (304 lb 9.6 oz). Medication Reconciliation: complete BLOCKER documented in this encounter Plan of Treatment Not on filedocumented as of this encounter Visit Diagnoses Diagnosis Renal hypertension, stage 1-4 or unspeci fied chronic kidney disease - Primary documented in this encounter Care Teams Spares Scheduler Relationship Specialty Start Date End Date Momo Forbes PCP - General Family Practice 01/02/14 [facility] [address] [place] [address] documented as of this encounter
--- OUTSIDE RECORDS SUMMARY | 2022-04-14 11:07 | XMS_ITS | Encounter Summary ---
:1950 Author Organization [place] Address [address] [place] [address]. [place] [address] Care Team Providers Name Role Phone Momo Forbes Primary Care Provider Reason for Visit Reason Onset Date Comments Transplant 02/19/2016 refill Encounter Details Date Type Department Care Team Description 02/19/2016 Refill The Transplant Deysi Burns MD Transplant (refill) 2nd Floor, Clinic 2A [phone] [place] [address] [place] [address] Social History Tobacco Use Types [...] documented in this encounter Care Teams Commercial Door Installer Relationship Specialty Start Date End Date Momo Forbes PCP - General Family Practice 01/02/14 [facility] 1999 [place], [place] [phone] documented as of this encounter
--- OUTSIDE RECORDS SUMMARY | 2022-04-14 11:07 | XMS_ITS | Encounter Summary ---
:1950 Author Organization [place] Address [facility]0 [facility] [place] [address] Care Team Providers Name Role Phone Leidy Momo He Primary Care Provider Reason for Visit Reason Onset Date Comments Transplant 03/30/2016 refill Encounter Details Date Type Department Care Team Description 03/30/2016 Refill The Transplant Deysi Burns MD Transplant (refill) 2nd Floor, Clinic 2A [phone] [place] [address] [facility] [place] [address] Social History Tobacco Use Types [...] Date: 02/19/16 Quantity: 240 Thanks!! Janelle Jackson [facility] documented in this encounter Plan of Treatment Not on filedocumented as of this encounter Visit Diagnoses Diagnosis Kidney transplanted - Primary Kidney replaced by transplant documented in this encounter Care Teams Conservation Biology Professor Relationship Specialty Start Date End Date Momo Forbes PCP - General Family Practice 01/02/[address] [address] documented as of this encounter
--- OUTSIDE RECORDS SUMMARY | 2022-04-14 11:07 | XMS_ITS | Encounter Summary ---
:1950 Author Organization [place] Address [facility] [place] [address] Care Team Providers Name Role Phone Momo Forbes Primary Care Provider Joseph Quintana MD Unavailable Encounter Details Date Type Department Care Team Description 05/03/2016 External Order Results [facility] Nurse, [facility] Transplant Clinic 9 [place] [address] Social History Tobacco Use Types [...] on filedocumented in this encounter Care Teams Flying Teacher Relationship Specialty Start Date End Date Momo Forbes PCP - General Family Practice 01/02/14 [facility] 1999 [place] [address] Joseph Quintana, Assigned Nephrology 03/29/21 MD Provider [address] [place], [place] [address] documented as of this encounter
--- OUTSIDE RECORDS SUMMARY | 2022-04-14 11:07 | XMS_ITS | Encounter Summary ---
:1950 Author Organization [place] Address [address] [place] [address]. [place] [address] Care Team Providers Name Role Phone Momo Forbes Primary Care Provider Reason for Visit Reason Onset Date Comments Transplant 04/20/2016 refill Encounter Details Date Type Department Care Team Description 04/20/2016 Refill [facility] Joseph Quintana, Transplant (refill) Transplant Clinic [address] [place] [phone] [place] [address] (Wo rk) Social History Tobacco [...] transplant documented in this encounter Care Teams Trench Digger Helper Relationship Specialty Start Date End Date Momo Forbes PCP - General Family Practice 01/02/14 [facility] [address] [place] [address] documented as of this encounter
--- OUTSIDE RECORDS SUMMARY | 2022-04-14 11:07 | XMS_ITS | Encounter Summary ---
:1950 Author Organization [place] Address [address] [place] [address] Care Team Providers Name Role Phone Momo Forbes Primary Care Provider Reason for Visit Reason Onset Date Comments Transplant 05/10/2016 refill Encounter Details Date Type Department Care Team Description 05/10/2016 Refill The Transplant Chucho Perez MD Transplant (refill) 2nd Floor, Clinic 2A [address] [address] [facility] [place] [address] Social History Tobacco Use Types [...] send new rx Thank you Janelle Flowers [facility] [phone] documented in this encounter Plan of Treatment Not on filedocumented as of this encounter Visit Diagnoses Diagnosis Kidney transplanted - Primary Kidney replaced by transplant documented in this encounter Care Teams Artificial Flowers Dyer Relationship Specialty Start Date End Date Momo Forbes PCP - General Family Practice 01/02/14 [place] [phone] documented as of this encounter
--- OUTSIDE RECORDS SUMMARY | 2022-04-14 11:07 | XMS_ITS | Encounter Summary ---
:1950 Author Organization [place] Address [facility] [place] [address] Care Team Providers Name Role Phone ForbesMomo prakash A Primary Care Provider Reason for Visit Reason Onset Date Comments Refill Request 09/28/2016 Encounter Details Date Type Department Care Team Description 09/28/2016 Refill [facility] Anita Joshi MD Refill Request Nephrology Clinic [address] [place] [address] [place] [phone] Social History Tobacco Use Types Packs/Day Years [...] 1:51 PM CST Last Office Visit with Sausage Meat Trimmer: March 2016. Medication refilled per Nephrology Clinic protocol. Janes Jauregui RN R SHOVEL OPERATOR documented in this encounter Plan of Treatment Not on filedocumented as of this encounter Visit Diagnoses Diagnosis Reactive depression - Primary Dysthymic disorder documented in this encounter Care Teams Wooden Barrel Mechanic Relationship Specialty Start Date End Date Momo Forbes PCP - General Family Practice 01/02/14 [facility] [address] [place] [address] documented as of this encounter
--- OUTSIDE RECORDS SUMMARY | 2022-04-14 11:08 | XMS_ITS | Encounter Summary ---
:1950 Author Organization [place] Address [address] [place] [address]. [place] [address] Care Team Providers Name Role Phone Ingrid Santana RN Unavailable Momo Forbes Primary Care Provider Encounter Details Date Type Department Care Team Description 10/18/2014 External Order Results The Transplant Ce ntjakob Nurse, [facility] 2nd Floor, Clinic [address]A [address] [address] Social History Tobacco Use Types [...] 8:15 AM Results f or this RESULTS [facility] procedure are i n the results section. documented in this encounter Results (ABNORMAL) TXP External Lab Result (10/17/2014 8:15 AM HEALTHCARE LIAISON) Analysis Performed At Patho logist Time Signature [...] 56 (L) >60 LABDE SCAN (if ml/min/1.7 [place]) 3m2 (External) GFR Estimated 46 (L) >60 [...] / / Volume Laterality 10/17/2014 8:15 AM HEALTHCARE LIAISON Narrative JESSICA [facility] - 10/18/2014 8:50 AM HEALTHCARE LIAISON Verified by Maribel Plunkett on 10/18/19 15. Patient Reported LABORATORY Performing Organization Address City/State/ZIP Code Phon e Number [facility]DE [facility] documented in this encounter Visit Diagnoses Not on filedocumented in this encounter Care Teams Licensed Staff Mft Relationship Specialty Start Date End Date oMmo Forbes PCP - General Family Practice 01/02/14 [facility] [address] [place] [address] Ingrid Santana, RN Registered Nurse Transplant 02/10/12 10/01/15 documented as of this encounter
--- OUTSIDE RECORDS SUMMARY | 2022-04-14 11:08 | XMS_ITS | Encounter Summary ---
:1950 Author Organization [place] Address [facility] [address] Care Team Providers Name Role Phone Ingrid Santana RN Unavailable Momo Forbes Primary Care Provider Reason for Visit Reason Onset Date Comments Refill Request 09/06/2014 [facility] Encounter Details Date Type Department Care Team Description 09/06/2014 Refill The Transplant Deysi Burns, Refill Request ([facility] 2nd Floor, Clinic 2A MD Plus) [facility] [place] [facility] Building [address] [place] [phone] [place] [address] [place] [address] Social History Tobacco Use Types [...] Fill Date: 02/08/14 Quantity: 100 [facility] [phone] EAR SUPERVISING OPERATOR documented in this encounter Plan of Treatment Not on filedocumented as of this encounter Visit Diagnoses Diagnosis S/P kidney transplant - Primary Kidney replaced by transplant documented in this encounter Care Teams Doffer Relationship Specialty Start Date End Date Momo Forbes PCP - General Family Practice 01/02/14 [place] [phone] Ingrid Santana, RN Registered Nurse Transplant 02/10/12 10/01/15 documented as of this encounter
--- OUTSIDE RECORDS SUMMARY | 2022-04-14 11:08 | XMS_ITS | Encounter Summary ---
:1950 Author Organization [place] Address [facility] [place] [address] Care Team Providers Name Role Phone Ingrid Santana RN Unavailable Momo Forbes Primary Care Provider Joseph Quintana MD Unavailable Encounter Details Date Type Department Care Team Description 08/06/2014 External Order Results The Transplant Ce nter Nurse, [facility] 2nd Floor, Clinic [address]A [address] [phone] Social History Tobacco Use Types Packs/Day Years [...] 8:39 AM Results f or this RESULTS HL7 INTERFACE DEVELOPER procedure are i n the results section. documented in this encounter Results (ABNORMAL) TXP External Lab Result (08/05/2014 8:39 AM HL7 INTERFACE DEVELOPER) [facility] Time Signature Sodium 137 135 - [...] 55 (L) >60 LABDE SCAN (if ml/min/1.7 Tongan) 3m2 (External) GFR Estimated 45 (L) >60 [...] / / Volume Laterality 08/05/2014 8:39 AM HL7 INTERFACE DEVELOPER Narrative ZACHERYTYLER PFT - 08/06/2014 7:40 AM HL7 INTERFACE DEVELOPER Verified by Mary Whitehead on 08/06/2014. Patient Reported LABORATORY Performing Organization Address City/State/ZIP Code Phon e Number [facility] LABDE SCAN documented in this encounter Visit Diagnoses Not on filedocumented in this encounter Care Teams Engagement Liaison Relationship Specialty Start Date End Date Momo Forbes PCP - General Family Practice 01/02/14 [facility] [address] [place] [address] Ingrid Santana, RN Registered Nurse Transplant 02/10/12 10/01/15 Joseph Quintana, Assigned Nephrology 03/29/21 MD Provider [address] [place] [address] [address] [place], [place] [id number] documented as of this encounter
--- OUTSIDE RECORDS SUMMARY | 2022-04-14 11:08 | XMS_ITS | Encounter Summary ---
:1950 Author Organization [place] Address [address] [place] [address] Care Team Providers Name Role Phone Ingrid Santana RN Unavailable Momo Forbes Primary Care Provider Encounter Details Date Type Department Care Team Description 07/22/2015 Orders Only formerly [facility] Dereck Dangelo MD [facility] 420 [facility] 195 500 [place], [place] [address] [place] [address] [phone] Social History Tobacco Use Types Packs/Day Years [...] PM R esults for this MASS SPECTROMETRY PUBLICITY PERSON procedure are in the results section. documented in this encounter Results Tacrolimus level (08/12/2015 4:35 PM PUBLICITY PERSON) [facility] Method Time Signature Tacrolimus Last 0700 [facility] Dose 08/12/15 [facility] Tacrolimus 5.3 5.0 - [facility] Level 15.0 ug/L [facility] Comment: Tacrolimus Reference Range Kidney [...] Volume Laterality 08/12/2015 4:35 PM 5 9:11 PUBLICITY PERSON AM PUBLICITY PERSON Mingo Matas MD LAB - BLOOD ORDERABLES Performing Organization Address City/State/ZIP Code Phon e Number [facility] [address] documented in this encounter Visit Diagnoses Not on filedocumented in this encounter Care Teams Hospital Manager Relationship Specialty Start Date End Date Momo Forbes PCP - General Family Practice 01/02/14 [facility] 1999 [place] [address] Ingrid Santana, RN Registered Nurse Transplant 02/10/12 10/01/15 documented as of this encounter
--- OUTSIDE RECORDS SUMMARY | 2022-04-14 11:08 | XMS_ITS | Encounter Summary ---
:1950 Author Organization [place] Address [facility] [place] [address] Care Team Providers Name Role Phone Ingrid Santana RN Unavailable Momo Forbes Primary Care Provider Encounter Details Date Type Department Care Team Description 12/30/2014 Orders Only The Transplant Shiva Arias, RN -donor kidney 2nd Floor, Clinic 2A [facility] transplant recipient Tommy Guillermoteen 420 [facility] (Primary Dx) Building [address] [place] [address] [place] [address] Social History Tobacco Use Types [...] transplant documented in this encounter Care Teams Elementary Special Education Teacher Relationship Specialty Start Date End Date Momo Forbes PCP - General Family Practice 01/02/14 [facility] [address] [place] [phone] Ingrid Santana, RN Registered Nurse Transplant 02/10/12 10/01/15 documented as of this encounter
--- OUTSIDE RECORDS SUMMARY | 2022-04-14 11:08 | XMS_ITS | Encounter Summary ---
:1950 Author Organization [place] Address [facility] [place] [address] Care Team Providers Name Role Phone Ingrid Santana RN Unavailable Momo Forbes Primary Care Provider Reason for Visit Reason Onset Date Comments Refill Request 04/21/2015 crestor Encounter Details Date Type Department Care Team Description 04/21/2015 Refill [facility] [address] Refill Request Physicians Orestes Hernandez MD (crestor) [facility] Building [place] 4th Floor, Clinic 4B [address] [facility] [address] [phone] (Wo rk) [phone] [phone] Social History Tobacco Use Types Packs/Day Years [...] # refills: 11 Last Office Visit with [facility] primary care provider: 05/14/14 CHOL 126 02/06/2014 HDL 35 02/06/2014 LDL 71 02/06/2014 TRIG 100 02/06/2014 CHOLHDLRATIO 3.6 02/06/2014 Gayathri Orta [facility] 7[address] [facility] [address] documented in this encounter Plan of Treatment Not on filedocumented as of this encounter Visit Diagnoses Diagnosis DM (diabetes mellitus), type 2 (H) - Ana ashley Type II or unspecified type diabetes aung litus without mention of complication, not stated as uncontrolled Other and unspecified hyperlipidemia documented in this encounter Care Teams Billboard Installer Relationship Specialty Start Date End Date Momo Forbes PCP - General Family Practice 01/02/14 [facility] 1999 [place] [address] Ingrid Santana, RN Registered Nurse Transplant 02/10/12 10/01/15 documented as of this encounter
--- OUTSIDE RECORDS SUMMARY | 2022-04-14 11:08 | XMS_ITS | Encounter Summary ---
:1950 Author Organization [place] Address [address] [place] [address] Care Team Providers Name Role Phone Ingrid Santana RN Unavailable Momo Forbes Primary Care Provider Encounter Details Date Type Department Care Team Description 07/22/2014 Orders Only [facility], [facility] [address] [phone] [place] [address] 444 [place] [address] (Wo rk) Social History Tobacco [...] AM Resul ts for this SINGLE ANTIGEN ELEMENTARY READING TUTOR procedure are in the results section. HLA LUKASZ CLASS I Routine 07/29/2014 8:20 AM Result s for this SINGLE ANTIGEN ELEMENTARY READING TUTOR procedure are in the results section. TACROLIMUS BY TANDEM Routine 07/29/2014 8:20 AM R esults for this MASS SPECTROMETRY ELEMENTARY READING TUTOR procedure are in the results section. TACROLIMUS BY TANDEM Routine 07/22/2014 8:20 AM R esults for this MASS SPECTROMETRY ELEMENTARY READING TUTOR procedure are in the results section. documented in this encounter Results HLA Lukasz Class II Single Antigen (07/29/2014 8:20 AM ELEMENTARY READING TUTOR) [facility] Method Time Signature SA2 Test SA HI [...] Volume Laterality 07/29/2014 8:20 AM 4 3:26 ELEMENTARY READING TUTOR PM ELEMENTARY READING TUTOR Deysi Alicea MD LAB - IMMUNOLOGY ORDERABLES Performing Organization Address City/State/ZIP Code Phon e Number [facility] Immunology/Histocompatabil [place], [place] [address] [facility] 500 [facility] [address] Building, Room 3-580 HISTOTRAC HLA Lukasz Class I Single Antigen (07/29/2014 8:20 AM ELEMENTARY READING TUTOR) [facility] Time Signature SA1 Test SA HI [...] Volume Laterality 07/29/2014 8:20 AM 4 3:26 ELEMENTARY READING TUTOR PM ELEMENTARY READING TUTOR Deysi Alicea MD LAB - IMMUNOLOGY ORDERABLES Performing Organization Address City/State/ZIP Code Phon e Number [facility] Immunology/Histocompatabil [place] [phone] 55 [facility] 500 [facility] [address] Building, Room 3-580 HISTOTRAC Tacrolimus level (07/29/2014 8:20 AM ELEMENTARY READING TUTOR) [facility] gist Method Time Signature Tacrolimus Last 1999 [facility] Dose 07/28/14 [facility] Tacrolimus 10.5 5.0 - [facility] Level 15.0 ug/L [facility] Comment: Tacrolimus Reference Range Kidney Transplant [...] / Volume Laterality 07/29/2014 8:20 AM 4 ELEMENTARY READING TUTOR 11:17 AM ELEMENTARY READING TUTOR Deysi Alicea MD LAB - BLOOD ORDERABLES Performing Organization Address City/State/ZIP Code Phon e Number [facility] 500 [place], [place] [phone] [place] [address] [facility] Tacrolimus level (07/22/2014 8:20 AM ELEMENTARY READING TUTOR) [facility] gist Method Time Signature Tacrolimus Last 1929 [facility] Dose 07/21/14 [facility] Tacrolimus 10.8 5.0 - [facility] Level 15.0 ug/L [facility] Comment: Tacrolimus Reference Range Kidney Transplant [...] / Volume Laterality 07/22/2014 8:20 AM 4 ELEMENTARY READING TUTOR 11:45 AM ELEMENTARY READING TUTOR Deysi Alicea MD LAB - BLOOD ORDERABLES Performing Organization Address City/State/ZIP Code Phon e Number [facility] 500 [place], [place] [phone] [place] [address] LABS documented in this encounter Visit Diagnoses Not on filedocumented in this encounter Care Teams Regional Sales Associate Relationship Specialty Start Date End Date Momo Forbes PCP - General Family Practice 01/02/14 [facility] 1999 [place] [address] Ingrid Santana, RN Registered Nurse Transplant 02/10/12 10/01/15 documented as of this encounter
--- OUTSIDE RECORDS SUMMARY | 2022-04-14 11:08 | XMS_ITS | Encounter Summary ---
:1950 Author Organization [place] Address [facility] [address] Care Team Providers Name Role Phone Ingrid Santana RN Unavailable Momo Forbes Primary Care Provider Joseph Quintana MD Unavailable Encounter Details Date Type Department Care Team Description 02/03/2015 External Order Results The Transplant Ce nter Nurse, [facility] 2nd Floor, Clinic [address]A [address] [phone] Social History Tobacco Use Types [...] External Lab Result (01/28/2015 8:56 AM CDT) [facility] Method Time Signature Sodium (External) 140 135 [...] on filedocumented in this encounter Care Teams Treating Plant Supervisor Relationship Specialty Start Date End Date Momo Forbes PCP - General Family Practice 01/02/14 [facility] [address] [place] [address] Ingrid Santana, RN Registered Nurse Transplant 02/10/12 10/01/15 Joseph Quintana, Assigned Nephrology 03/29/21 MD Provider 717 [facility] 353 [facility] 1932 [place], [place] [phone] documented as of this encounter
--- OUTSIDE RECORDS SUMMARY | 2022-04-14 11:08 | XMS_ITS | Encounter Summary ---
:1950 Author Organization [place] Address [address] [place] [address] Care Team Providers Name Role Phone Ingrid Santana RN Unavailable Momo Forbes Primary Care Provider Encounter Details Date Type Department Care Team Description 08/22/2014 Orders Only [facility], [facility], [facility] [place] [address] [phone] [place] [address] 160 [place] [address] (Wo rk) Social History Tobacco [...] Res ults for this MASS SPECTROMETRY AM IMAGING ASSISTANT procedure are in the results section. documented in this encounter Results Tacrolimus level (08/26/2014 10:21 AM IMAGING ASSISTANT) Patholo gist Method Time Signature Tacrolimus Last 08/25/14 [facility] Dose 2030 [facility] Tacrolimus 6.6 5.0 - [facility] 15.0 ug/L [facility] Comment: Tacrolimus Reference Range Kidney Transplant Pediatric [...] its perform ance characteristics determined by the [facility], ??Special Chemistry Laboratory. It has not been cleared or approved by the FDA . The laboratory is regulated under CLIA as qualified to perform high-complexity testing. This test is used for clinical purposes. It should not be regarded as investigational or for research. Specimen Anatomical Collection Method Collection Time Receive d Time (Source) Location / / Volume Laterality 08/26/2014 10:21 08/28/2014 AM IMAGING ASSISTANT 11:34 AM IMAGING ASSISTANT Mingo Dangelo MD LAB - BLOOD ORDERABLES Performing Organization Address City/State/ZIP Code Phon e Number [facility] [address] documented in this encounter Visit Diagnoses Not on filedocumented in this encounter Care Teams Autocad Operator Relationship Specialty Start Date End Date Momo Forbes PCP - General Family Practice 01/02/14 [facility] 1999 [place] [address] Ingrid Santana, RN Registered Nurse Transplant 02/10/12 10/01/15 documented as of this encounter
--- OUTSIDE RECORDS SUMMARY | 2022-04-14 11:08 | XMS_ITS | Encounter Summary ---
:1950 Author Organization [place] Address [address] [place] [address]. [place] [address] Care Team Providers Name Role Phone Ingrid Santana RN Unavailable Momo Forbes Primary Care Provider Encounter Details Date Type Department Care Team Description 08/03/2014 Abstract The Transplant [facility] 2nd Floor, Clinic 2A [address] [phone] Social History Tobacco Use [...] on filedocumented in this encounter Care Teams Management Trainee Program Stores Relationship Specialty Start Date End Date Momo Forbes PCP - General Family Practice 01/02/14 [facility] [address] [place] [address] Ingrid Santana RN Registered Nurse Transplant 02/10/12 10/01/15 documented as of this encounter
--- OUTSIDE RECORDS SUMMARY | 2022-04-14 11:08 | XMS_ITS | Encounter Summary ---
:1950 Author Organization [place] Address [address] [place] [address] Care Team Providers Name Role Phone Ingrid Santana RN Unavailable Momo Forbes Primary Care Provider Reason for Visit Reason Onset Date Comments Medication Question 09/12/2014 Encounter Details Date Type Department Care Team Description 09/12/2014 Telephone [facility] Beny Staton RPH Medication Question 500 [facility] [place] [address] PHARMACY [phone] [place], [place] [phone] Social History Tobacco Use Types Packs/Day Years [...] his dr told himhis bp was good. RMODAL TRUCK DRIVER documented in this encounter Plan of Treatment Not on filedocumented as of this encounter Visit Diagnoses Not on filedocumented in this encounter Care Teams Harvesting Supervisor Relationship Specialty Start Date End Date Momo Forbes PCP - General Family Practice 01/02/14 [facility] 1999 [place] [address] Ingrid Santana, RN Registered Nurse Transplant 02/10/12 10/01/15 documented as of this encounter
--- OUTSIDE RECORDS SUMMARY | 2022-04-14 11:08 | XMS_ITS | Encounter Summary ---
:1950 Author Organization [place] Address [facility] [place] [address] Care Team Providers Name Role Phone Ingrid Santana RN Unavailable Momo Forebs Primary Care Provider Joseph Quintana MD Unavailable Encounter Details Date Type Department Care Team Description 08/28/2014 External Order Results The Transplant Ce nter Nurse, [facility] 2nd Floor, Clinic [address]A [address] [phone] Social History Tobacco Use Types [...] 08/26/2014 10:25 AM Results for this RESULTS TRAP OPERATOR procedure are i n the results section. documented in this encounter Results (ABNORMAL) TXP External Lab Result (08/26/2014 10:25 AM TRAP OPERATOR) Analysis Performed At [facility] Time Signature Sodium 139 135 - 145 [...] 58 (L) >60 LABDE SCAN (if ml/min/1.7 [place] Citizen) 3m2 (External) GFR Estimated 48 (L) >60 [...] / / Volume Laterality 08/26/2014 10:25 AM TRAP OPERATOR Narrative JESSICA PFT - 08/28/2014 4:34 PM TRAP OPERATOR Verified by Freddy Mehta on 08/28. Patient Reported LABORATORY Performing Organization Address City/State/ZIP Code Phon e Number [facility] LABDE SCAN documented in this encounter Visit Diagnoses Not on filedocumented in this encounter Care Teams Addiction Counselor Relationship Specialty Start Date End Date Momo Forbes PCP - General Family Practice 01/02/14 [facility] [address] [place] [address] Ingrid Santana, RN Registered Nurse Transplant 02/10/12 10/01/15 Joseph Quintana, Assigned Nephrology 03/29/21 MD Provider [address] [place] [address] [place] [id number] documented as of this encounter
--- OUTSIDE RECORDS SUMMARY | 2022-04-14 11:08 | XMS_ITS | Encounter Summary ---
:1950 Author Organization [place] Address [facility] [place] [address] Care Team Providers Name Role Phone Ingrid Santana RN Unavailable Momo Forbes Primary Care Provider Reason for Visit Reason Onset Date Comments Refill Request 06/23/2015 amlodipine Encounter Details Date Type Department Care Team Description 06/23/2015 Refill [facility] [address] Refill Request Physicians Orestes Hernandez MD (amlodipine) [facility] Building [place] 4th Floor, Clinic 4B 1 [facility] [address] [phone] (Wo rk) [phone] Social History Tobacco Use Types Packs/Day Years [...] refills: 3 Last Office Visit with [facility] primary care provider: 05/14/2014 Future Office Visit: BP Readings from Last 3 Encounters: 05/14/14 141/65 05/13/14 139/73 04/09/14 163/78 [facility] [phone] LER MACHINE FIXER documented in this encounter Plan of Treatment Not on filedocumented as of this encounter Visit Diagnoses Diagnosis HTN (hypertension) - Primary Unspecified essential hypertension documented in this encounter Care Teams Speech Pathology Teacher Relationship Specialty Start Date End Date Momo Forbes PCP - General Family Practice 01/02/14 [facility] 1999 [place] [address] Ingrid Santana, RN Registered Nurse Transplant 02/10/12 10/01/15 documented as of this encounter
--- OUTSIDE RECORDS SUMMARY | 2022-04-14 11:08 | XMS_ITS | Encounter Summary ---
:1950 Author Organization [place] Address [address] [place] [address]. [place] [address] Care Team Providers Name Role Phone Ingrid Santana RN Unavailable Momo Forbes Primary Care Provider Encounter Details Date Type Department Care Team Description 10/04/2014 External Order Results The Transplant Ce ntjakob Nurse, [facility] 2nd Floor, Clinic [address]A [address] [phone] Social History Tobacco Use [...] 8:33 AM Results f or this RESULTS BOARD OF DIRECTORS procedure are i n the results section. documented in this encounter Results (ABNORMAL) TXP External Lab Result (10/03/2014 8:33 AM BOARD OF DIRECTORS) Analysis Performed At Patho logist Time Signature [...] 57 (L) >60 LABDE SCAN (if ml/min/1.7 Scottish) 3m2 (External) GFR Estimated 47 (L) >60 [...] / / Volume Laterality 10/03/2014 8:33 AM BOARD OF DIRECTORS Narrative JESSICA PFT - 10/04/2014 8:51 AM BOARD OF DIRECTORS Verified by Josseline Palma on 5. Patient Reported LABORATORY Performing Organization Address City/State/ZIP Code Phon e Number [facility] LABDE SCAN documented in this encounter Visit Diagnoses Not on filedocumented in this encounter Care Teams Stock Supervisor Relationship Specialty Start Date End Date Momo Forbes PCP - General Family Practice 01/02/14 [facility] [address] [place] [phone] Ingrid Santana, RN Registered Nurse Transplant 02/10/12 10/01/15 documented as of this encounter
--- OUTSIDE RECORDS SUMMARY | 2022-04-14 11:08 | XMS_ITS | Encounter Summary ---
:1950 Author Organization [place] Address [address] [place] [address] Care Team Providers Name Role Phone Ingrid Santana RN Unavailable Momo Forbes Primary Care Provider Encounter Details Date Type Department Care Team Description 09/22/2014 Orders Only [facility], [facility], [facility] jm [place] [address] [phone] [place] [address] 277 [place] [address] (Wo rk) Social History Tobacco [...] R esults for this MASS SPECTROMETRY CLINICAL APPEALS AUDITOR procedure are in the results section. TACROLIMUS BY TANDEM Routine 10/03/2014 8:30 AM R esults for this MASS SPECTROMETRY CLINICAL APPEALS AUDITOR procedure are in the results section. documented in this encounter Results Tacrolimus level (10/17/2014 8:15 AM CLINICAL APPEALS AUDITOR) [facility] Method Time Signature Tacrolimus Last 2029 [facility] Dose 10/16/14 [facility] Tacrolimus 9.2 5.0 - [facility] Level 15.0 ug/L [facility] Comment: Tacrolimus Reference Range Kidney [...] its perform ance characteristics determined by the [facility], ??Special Chemistry Laboratory. It has not been cleared or approved by the FDA . The laboratory is regulated under CLIA as qualified to perform high-complexity testing. This test is used for clinical purposes. It should not be regarded as investigational or for research. Specimen Anatomical Collection Method Collection Time Receive d Time (Source) Location / / Volume Laterality 10/17/2014 8:15 AM 5 CLINICAL APPEALS AUDITOR 11:17 AM CLINICAL APPEALS AUDITOR Mingo Dangelo MD LAB - BLOOD ORDERABLES Performing Organization Address City/State/ZIP Code Phon e Number [facility] [address] [place] [address] [facility] Tacrolimus level (10/03/2014 8:30 AM CLINICAL APPEALS AUDITOR) [facility] gist Method Time Signature Tacrolimus Last 10/02/14 [facility] Dose 2030 [facility] Tacrolimus 7.4 5.0 - [facility] Level 15.0 ug/L [facility] Comment: Tacrolimus Reference Range Kidney [...] its perform ance characteristics determined by the [facility], ??Special Chemistry Laboratory. It has not been cleared or approved by the FDA . The laboratory is regulated under CLIA as qualified to perform high-complexity testing. This test is used for clinical purposes. It should not be regarded as investigational or for research. Specimen Anatomical Collection Method Collection Time Receive d Time (Source) Location / / Volume Laterality 10/03/2014 8:30 AM 5 CLINICAL APPEALS AUDITOR 11:09 AM CLINICAL APPEALS AUDITOR Mingo Dangelo MD LAB - BLOOD ORDERABLES Performing Organization Address City/State/[facility] Code Phon e Number [facility] [address] documented in this encounter Visit Diagnoses Not on filedocumented in this encounter Care Teams Construction Technology Instructor Relationship Specialty Start Date End Date Momo Forbes PCP - General Family Practice 01/02/14 [facility] 1999 [place] [address] Ingrid Santana, RN Registered Nurse Transplant 02/10/12 10/01/15 documented as of this encounter
--- OUTSIDE RECORDS SUMMARY | 2022-04-14 11:08 | XMS_ITS | Encounter Summary ---
:1950 Author Organization [place] Address [address] [place] [address] Care Team Providers Name Role Phone Ingrid Santana RN Unavailable Momo Forbes Primary Care Provider Encounter Details Date Type Department Care Team Description 10/20/2014 Orders Only [facility], [facility], [facility] [place] [address] [phone] [place] [address] 863 [place] [address] (Wo rk) Social History Tobacco [...] Tacrolimus Last 2030, [facility] Dose 11/04/14 [facility] Tacrolimus 7.7 5.0 - [facility] 15.0 ug/L [facility] Comment: Tacrolimus Reference Range Kidney [...] its perform ance characteristics determined by the [facility], ??Special Chemistry Laboratory. It has not [...] Code Phon e Number [facility] [address] documented in this encounter Visit Diagnoses Not on filedocumented in this encounter Care Teams Cargo Surveyor Relationship Specialty Start Date End Date Momo Forbes PCP - General Family Practice 01/02/14 [facility] [address] [place] [address] Ingrid Santana, RN Registered Nurse Transplant 02/10/12 10/01/15 documented as of this encounter
--- OUTSIDE RECORDS SUMMARY | 2022-04-14 11:08 | XMS_ITS | Encounter Summary ---
:1950 Author Organization [place] Address [facility] [place] [address] Care Team Providers Name Role Phone Ingrid Santana RN Unavailable Momo Forbes Primary Care Provider Encounter Details Date Type Department Care Team Description 12/27/2014 External Order Results The Transplant Ce krish Nurse, [facility] 2nd Floor, Clinic [address] [phone] Social History Tobacco Use Types [...] External Lab Result (12/25/2014 9:48 AM CDT) [facility] Method Time Signature Sodium 138 135 - [...] 51 (L) >60 LABDE SCAN (if ml/min/1. German) 73m2 (External) GFR Estimated 42 (L) >60 [...] on filedocumented in this encounter Care Teams Infusion Rn Relationship Specialty Start Date End Date Momo Forbes PCP - General Family Practice 01/02/14 [facility] [address] [place] [address] Ingrid Santana, RN Registered Nurse Transplant 02/10/12 10/01/15 documented as of this encounter
--- OUTSIDE RECORDS SUMMARY | 2022-04-14 11:08 | XMS_ITS | Encounter Summary ---
:1950 Author Organization [place] Address [address] [place] [address] Care Team Providers Name Role Phone Ingrid Santana RN Unavailable Momo Forbes Primary Care Provider Reason for Visit Reason Onset Date Comments Medication Question 10/11/2014 Encounter Details Date Type Department Care Team Description 10/11/2014 Telephone [facility] Beny Staton RPH Medication Question 500 [facility] [address] PHARMACY [phone] [place], [place] [phone] Social History Tobacco Use Types Packs/Day Years [...] activity before he checks it. Beny Staton [facility] Specialty Pharmacist [phone] OPHARMACIST documented in this encounter Plan of Treatment Not on filedocumented as of this encounter Visit Diagnoses Not on filedocumented in this encounter Care Teams Heel Cutter Relationship Specialty Start Date End Date Momo Forbes PCP - General Family Practice 01/02/14 [facility] [address] [place] [address] Ingrid Santana, RN Registered Nurse Transplant 02/10/12 10/01/15 documented as of this encounter
--- OUTSIDE RECORDS SUMMARY | 2022-04-14 11:08 | XMS_ITS | Encounter Summary ---
:1950 Author Organization [place] Address [facility] [place] [address] Care Team Providers Name Role Phone Ingrid Santana RN Unavailable Momo Forbes Primary Care Provider Joseph Quintana MD Unavailable Encounter Details Date Type Department Care Team Description 08/14/2015 External Order Results The Transplant Ce nter Nurse, [facility] 2nd Floor, Clinic [address]A [address] [phone] Social History Tobacco Use Types Packs/Day Years [...] 4:41 PM Results f or this RESULTS HYPOID GEAR GENERATOR procedure are i n the results section. documented in this encounter Results (ABNORMAL) TXP External Lab Result (08/12/2015 4:41 PM HYPOID GEAR GENERATOR) [facility] Time Signature Sodium 135 135 - [...] 59 (L) >60 LABDE SCAN (if mL/min/1.7 Haitian) 3/m2 (External) GFR Estimated 48 (L) >60 [...] / / Volume Laterality 08/12/2015 4:41 PM HYPOID GEAR GENERATOR Narrative [facility] - 08/14/2015 9:25 AM HYPOID GEAR GENERATOR Verified by Freddy Mehta on 08/14. Patient Reported LABORATORY Performing Organization Address City/State/ZIP Code Phon e Number [facility] LABDE SCAN documented in this encounter Visit Diagnoses Not on filedocumented in this encounter Care Teams [facility] Relationship Specialty Start Date End Date Momo Forbes PCP - General Family Practice 01/02/14 [facility] [address] [place] [address] Ingrid Santana, RN Registered Nurse Transplant 02/10/12 10/01/15 Joseph Quintana, Assigned Nephrology 03/29/21 MD Provider [address] [place] [address] 353 [facility] [address] [place] [address] documented as of this encounter
--- OUTSIDE RECORDS SUMMARY | 2022-04-14 11:08 | XMS_ITS | Encounter Summary ---
:1950 Author Organization [place] Address [facility] [place] [address] Care Team Providers Name Role Phone Ingrid Santana RN Unavailable Momo Forbes Primary Care Provider Joseph Quintana MD Unavailable Encounter Details Date Type Department Care Team Description 07/25/2014 External Order Results The Transplant Ce nter Nurse, [facility] 2nd Floor, Clinic [address]A [address] [phone] Social History Tobacco Use Types Packs/Day Years [...] 8:22 AM Results f or this RESULTS SALESFORCE DEVELOPER procedure are i n the results section. documented in this encounter Results (ABNORMAL) TXP External Lab Result (07/22/2014 8:22 AM SALESFORCE DEVELOPER) [facility] Time Signature Sodium 140 135 - [...] 52 (L) >60 LABDE SCAN (if ml/min/1.7 Cypriot) 3m2 (External) GFR Estimated 43 (L) >60 [...] / / Volume Laterality 07/22/2014 8:22 AM SALESFORCE DEVELOPER Narrative JESSICA [facility] - 07/25/2014 6:19 AM SALESFORCE DEVELOPER Verified by Janee Alexis on 07/25/2014 . Patient Reported LABORATORY Performing Organization Address City/State/ZIP Code Phon e Number [facility] LABDE SCAN documented in this encounter Visit Diagnoses Not on filedocumented in this encounter Care Teams District Attorney Relationship Specialty Start Date End Date Momo Forbes PCP - General Family Practice 01/02/14 [facility] [address] [place] [address] Ingrid Santana, RN Registered Nurse Transplant 02/10/12 10/01/15 Joseph Quintana, Assigned Nephrology 03/29/21 MD Provider [address] [place] [address] [address] [place] [address] documented as of this encounter
--- OUTSIDE RECORDS SUMMARY | 2022-04-14 11:08 | XMS_ITS | Encounter Summary ---
:1950 Author Organization [place] Address [facility] [place] [address] Care Team Providers Name Role Phone Ingrid Santana RN Unavailable Momo Forbes Primary Care Provider Reason for Visit Reason Onset Date Comments Refill Request 02/10/2015 mycophenolate, smz/t mp Encounter Details Date Type Department Care Team Description 02/10/2015 Refill The Transplant Deysi Burns, Refill Request 2nd Floor, Clinic 2A (mycophenolate, Sanders Wangensteen [facility] smz/tmp) Building [address] [place] [address] [place] [address] Social History Tobacco Use Types [...] Fill Date: 01/09/15 Last Fill Quantity: 240 [id number] Last Fill Date: 01/09/15 Last Fill Quantity: 31 Gayathri Orta [facility] 711 [facility] [address] documented in this encounter Plan of Treatment Not on filedocumented as of this encounter Visit Diagnoses Diagnosis S/P kidney transplant - Primary Kidney replaced by transplant documented in this encounter Care Teams Instrument Tester Relationship Specialty Start Date End Date Momo Forbes PCP - General Family Practice 01/02/[address] [address] Ingrid Santana, RN Registered Nurse Transplant 02/10/12 10/01/15 documented as of this encounter
--- OUTSIDE RECORDS SUMMARY | 2022-04-14 11:08 | XMS_ITS | Encounter Summary ---
:1950 Author Organization [place] Address [facility] [place] [address] Care Team Providers Name Role Phone Ingrid Santana RN Unavailable Momo Forbes Primary Care Provider Reason for Visit Reason Onset Date Comments Transplant 12/31/2014 Encounter Details Date Type Department Care Team Description 12/31/2014 Telephone [facility] Transplant [facility]ita Or[facility] [address] [place] [phone] Social History Tobacco Use Types [...] filedocumented in this encounter Care Teams Senior Qa Automation Engineer Relationship Specialty Start Date End Date Momo Forbes PCP - General Family Practice 01/02/14 [facility] [address] [place] [address] Ingrid Santana, RN Registered Nurse Transplant 02/10/12 10/01/15 documented as of this encounter
--- OUTSIDE RECORDS SUMMARY | 2022-04-14 11:08 | XMS_ITS | Encounter Summary ---
:1950 Author Organization [place] Address [address] [place] [address] Care Team Providers Name Role Phone Ingrid Santana RN Unavailable Momo Forbes Primary Care Provider Reason for Visit Reason Onset Date Comments Medication Question 01/17/2015 Encounter Details Date Type Department Care Team Description 01/17/2015 Telephone [facility] Beny Staton RPH Medication Question 500 [facility] [place] [address] PHARMACY [phone] [place], [place] [phone] Social History Tobacco Use Types Packs/Day Years [...] keep better tabs. His last to in [place] were good but that was 8 months ago. Beny Staton [facility] Specialty Pharmacist [phone] documented in this encounter Plan of Treatment Not on filedocumented as of this encounter Visit Diagnoses Not on filedocumented in this encounter Care Teams Machine Oiler Relationship Specialty Start Date End Date Momo Forbes PCP - General Family Practice 01/02/14 [facility] [address] [place] [address] Ingrid Santana, RN Registered Nurse Transplant 02/10/12 10/01/15 documented as of this encounter
--- OUTSIDE RECORDS SUMMARY | 2022-04-14 11:08 | XMS_ITS | Encounter Summary ---
:1950 Author Organization [place] Address [facility] [place] [address] Care Team Providers Name Role Phone Ingrid Santana RN Unavailable Momo Forbes Primary Care Provider Joseph Quintana MD Unavailable Encounter Details Date Type Department Care Team Description 07/31/2014 External Order Results The Transplant Ce nter Nurse, [facility] 2nd Floor, Clinic [address]A [address] [phone] Social History Tobacco Use Types Packs/Day Years [...] 8:25 AM Results f or this RESULTS DIVIDEND DEPOSIT ENTRY CLERK procedure are i n the results section. documented in this encounter Results (ABNORMAL) TXP External Lab Result (07/29/2014 8:25 AM DIVIDEND DEPOSIT ENTRY CLERK) [facility] Method Time Signature Sodium (External) 138 [...] / / Volume Laterality 07/29/2014 8:25 AM DIVIDEND DEPOSIT ENTRY CLERK Narrative [facility] - 07/31/2014 2:47 PM DIVIDEND DEPOSIT ENTRY CLERK Verified by Nazia Duncan on 07/31/2014. Verified by Freddy Mehta on 07/31. Patient Reported LABORATORY Performing Organization Address City/State/ZIP Code Phon e Number [facility] LABDE SCAN documented in this encounter Visit Diagnoses Not on filedocumented in this encounter Care Teams Physician Assistant Primary Care Relationship Specialty Start Date End Date Momo Forbes PCP - General Family Practice 01/02/14 [facility] [address] [place] [address] Ingrid Santana, RN Registered Nurse Transplant 02/10/12 10/01/15 Joseph Quintana, Assigned Nephrology 03/29/21 MD Provider 7 [facility] 353 [facility] 1932 [place] [address] documented as of this encounter
--- OUTSIDE RECORDS SUMMARY | 2022-04-14 11:08 | XMS_ITS | Encounter Summary ---
:1950 Author Organization [place] Address [facility] [place] [address] Care Team Providers Name Role Phone Ingrid Santana RN Unavailable Momo Forbes Primary Care Provider Reason for Visit Reason Onset Date Comments Transplant 08/08/2014 immunosuppression mckenzie trejo Encounter Details Date Type Department Care Team Description 08/08/2014 Refill Nephrology Shiva Kahn RN Transplant 2nd Floor, Clinic 2A [facility] (immunosuppression Sanders Wangensteen 420 [facility] management) Building [address] [place] [phone] Social History Tobacco Use Types Packs/Day Years [...] to lower Prograf dose to 1.5mg BID. GRADER Telephone Encounter - Shiva Kahn RN - 08/08/2014 5:33 PM CST ISSUE: Tacrolimus level 9.0. New target tacrolimus levels 6-8 since patient is now 6 months post kidney transplant. PLAN: Decrease Prograf dose from 2 mg twice daily to 1.5 mg twice daily. TASK: Please call patient with instructions for dose change. 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
--- OUTSIDE RECORDS SUMMARY | 2022-04-14 11:08 | XMS_ITS | Encounter Summary ---
:1950 Author Organization [place] Address [address] [place] [address] Care Team Providers Name Role Phone Ingrid Santana RN Unavailable Momo Forbes Primary Care Provider Encounter Details Date Type Department Care Team Description 12/20/2014 Orders Only [facility], [facility], [facility] jm [place] [address] [phone] [place] [address] 727 [place] [address] (Wo rk) Social History Tobacco [...] Tacrolimus Last 12/24/14 [facility] Dose 2130 [facility] Tacrolimus 9.5 5.0 - [facility] 15.0 ug/L [facility] Comment: Tacrolimus Reference Range Kidney [...] Phon e Number [facility] [address] documented in this encounter Visit Diagnoses Not on filedocumented in this encounter Care Teams Perianesthesia Manager Relationship Specialty Start Date End Date Momo Fobres PCP - General Family Practice 01/02/14 [facility] [address] [place] [address] Ingrid Santana, RN Registered Nurse Transplant 02/10/12 10/01/15 documented as of this encounter
--- OUTSIDE RECORDS SUMMARY | 2022-04-14 11:08 | XMS_ITS | Encounter Summary ---
:1950 Author Organization [place] Address [facility]0 [facility] [place] [address] Care Team Providers Name Role Phone Ingrid Santana RN Unavailable Momo Forbes Primary Care Provider Joseph Quintana MD Unavailable Encounter Details Date Type Department Care Team Description 11/07/2014 External Order Results The Transplant Ce nter Nurse, [facility] 2nd Floor, Clinic [address]A [address] [phone] Social History Tobacco Use Types Packs/Day Years [...] Estimated >60 >60 LABDE SCAN (if ml/min/1.7 Central African) 3m2 (External) GFR Estimated 51 (L) >60 [...] on filedocumented in this encounter Care Teams Lamp Assembler Relationship Specialty Start Date End Date Momo Forbes PCP - General Family Practice 01/02/14 [facility] [address] [place] [address] Ingrid Santana, RN Registered Nurse Transplant 02/10/12 10/01/15 Joseph Quintana, Assigned Nephrology 03/29/21 MD Provider [address] [place] [address] 1932 [place], [place] [id number] documented as of this encounter
--- OUTSIDE RECORDS SUMMARY | 2022-04-14 11:08 | XMS_ITS | Encounter Summary ---
:1950 Author Organization [place] Address 2450 [facility] [place] [address] Care Team Providers Name Role Phone Ingrid Santana RN Unavailable Momo Forbes Primary Care Provider Reason for Visit Reason Onset Date Comments Medication Question 07/26/2014 Encounter Details Date Type Department Care Team Description 07/26/2014 Telephone PHARMACY Duncan, Fina, [facility] Medication Question 500 [facility] [place] [address] 71 [facility] [phone] [place] [address] Social History Tobacco Use Types [...] very well healthy and happy Beny Staton [facility] Specialty Pharmacist [phone] TION MANAGER documented in this encounter Plan of Treatment Not on filedocumented as of this encounter Visit Diagnoses Not on filedocumented in this encounter Care Teams Prescription Benefit Specialist Relationship Specialty Start Date End Date Momo Forbes PCP - General Family Practice 01/02/14 [facility] [address] [place] [address] Ingrid Santana, RN Registered Nurse Transplant 02/10/12 10/01/15 documented as of this encounter
--- OUTSIDE RECORDS SUMMARY | 2022-04-14 11:09 | XMS_ITS | Encounter Summary ---
:1950 Author Organization [place] Address [facility] [place] [address] Care Team Providers Name Role Phone Ingrid Santana RN Unavailable Momo Forbes Primary Care Provider Reason for Visit Reason Onset Date Comments Patient Reminder 05/09/2014 Encounter Details Date Type Department Care Team Description 05/09/2014 Telephone Nephrology Yesenia Clements CMA Patient Reminder 2nd Floor, Clinic [address] [place] [phone] Social History Tobacco Use Types [...] filedocumented in this encounter Care Teams Production Maintenance Mechanic Relationship Specialty Start Date End Date Momo Forbes PCP - General Family Practice 01/02/14 [facility] [address] [place] [address] Ingrid Santana, RN Registered Nurse Transplant 02/10/12 10/01/15 documented as of this encounter
--- OUTSIDE RECORDS SUMMARY | 2022-04-14 11:09 | XMS_ITS | Encounter Summary ---
:1950 Author Organization [place] Address [address] [place] [address] Care Team Providers Name Role Phone Ingrid Santana RN Unavailable Momo Forbes Primary Care Provider Reason for Visit Reason Onset Date Comments Anticoagulation 04/01/2014 Encounter Details Date Type Department Care Team Description 04/01/2014 Telephone [facility] Joseph Levine , Anticoagulation Anticoagulation Clin ic [facility] [address] [place], [place] [phone] [facility] [phone] [place] [address] 812 [place] [address] (Wo rk) Social History Tobacco [...] Miscellaneous Notes Telephone Encounter - Joseph Levine, [facility] - 04/01/2014 5:22 PM CDT INR today was 1.64 I spoke with Diego his proceedure went well. I recommended warfarin 7.5mgs MWF 5mgs all other days He will have an INR on 04/09/14 at his appointment with Dr Rodriguez Electronically signed by Joseph Levine [facility] at 04/01/2014 5:23 PM CDT documented in this encounter Plan of Treatment Not on filedocumented as of this encounter Visit Diagnoses Not on filedocumented in this encounter Care Teams Legal Entity Controller Relationship Specialty Start Date End Date Momo Forbes PCP - General Family Practice 01/02/14 [place] [address] Ingrid Santana, RN Registered Nurse Transplant 02/10/12 10/01/15 documented as of this encounter
--- OUTSIDE RECORDS SUMMARY | 2022-04-14 11:09 | XMS_ITS | Encounter Summary ---
:1950 Author Organization [place] Address [address] [place] [address]. [place] [address] Care Team Providers Name Role Phone Ingrid Santana RN Unavailable Momo Forbes Primary Care Provider Reason for Visit Reason Onset Date Comments Refill Request 04/26/2014 Encounter Details Date Type Department Care Team Description 04/26/2014 Refill Nephrology Shiva Kahn RN Refill Request 2nd Floor, Clinic 2A [facility] Sanders Wangensteen [phone] [place] [address] [place] [phone] Social History Tobacco Use Types Packs/Day [...] transplant documented in this encounter Care Teams Wastewater Superintendent Relationship Specialty Start Date End Date Momo Forbes PCP - General Family Practice 01/02/14 [facility] [address] [place] [address] Ingrid Santana, RN Registered Nurse Transplant 02/10/12 10/01/15 documented as of this encounter
--- OUTSIDE RECORDS SUMMARY | 2022-04-14 11:09 | XMS_ITS | Encounter Summary ---
:1950 Author Organization [place] Address [address] [place] [address] Care Team Providers Name Role Phone Ingrid Santana RN Unavailable Momo Forbes Primary Care Provider Encounter Details Date Type Department Care Team Description 04/22/2014 Orders Only [facility], [facility], [facility] jm [place] [address] [phone] [place] [address] 785 [place] [address] (Wo rk) Social History Tobacco [...] (ABNORMAL) Tacrolimus level (05/17/2014 8:17 AM CDT) [facility] Method Time Signature Tacrolimus Last 05/16/2014 [facility] Dose 2000 [facility] Tacrolimus 4.4 (L) 5.0 - [facility] Level 15.0 ug/L [facility] [...] Code Phon e Number [facility] 500 [place], [place] [phone] [place] [address] [facility] ([facility]) Tacrolimus level (05/15/2014 8:15 AM CDT) [facility] gist Method Time Signature Tacrolimus Last 05/14/14 [facility] Dose 2000 [facility] Tacrolimus 4.6 (L) 5.0 - [facility] Level 15.0 ug/L [facility] [...] Code Phon e Number [facility] 500 [place], [place] [phone] [place] [address] [facility] Tacrolimus level (05/10/2014 8:50 AM CDT) [facility] gist Method Time Signature Tacrolimus Not Provided [facility] Last Dose [facility] Tacrolimus 14.3 5.0 - [facility] Level 15.0 ug/L [facility] [...] Code Phon e Number [facility] 500 [place], [place] [phone] [place] [address] [facility] (ABNORMAL) Tacrolimus level (05/07/2014 8:15 AM CDT) [facility] gist Method Time Signature Tacrolimus Last 05/06/14 [facility] Dose 2000 [facility] Tacrolimus 15.9 (H) 5.0 - [facility] Level 15.0 ug/L [facility] [...] Code Phon e Number [facility] 500 [place], [place] [phone] [place] [address] [facility] Tacrolimus level (05/03/2014 8:13 AM CDT) [facility] gist Method Time Signature Tacrolimus Last [facility] Dose 2000 [facility] Tacrolimus 8.8 5.0 - [facility] Level 15.0 ug/L [facility] [...] Code Phon e Number [facility] 500 [place], [place] [phone] [place] [address] [facility] Tacrolimus level (04/30/2014 8:20 AM CDT) [facility] gist Method Time Signature Tacrolimus Last 04/29/14 [facility] Dose 2000 [facility] Tacrolimus 12.6 5.0 - [facility] Level 15.0 ug/L [facility] [...] Code Phon e Number [facility] 500 [place], [place] [phone] [place] [address] [facility] Tacrolimus level (04/26/2014 8:30 AM CDT) [facility] gist Method Time Signature Tacrolimus Last 04/25/14 [facility] Dose 1900 [facility] Tacrolimus 10.1 5.0 - [facility] Level 15.0 ug/L [facility] [...] LAB - BLOOD ORDERABLES Performing Organization Address City/State/[facility] Phon e Number [facility] 500 [place], [place] [phone] [place] [address] [facility] Tacrolimus level (04/24/2014 9:00 AM CDT) [facility] gist Method Time Signature Tacrolimus Last 04/23/14 [facility] Dose 1900 [facility] Tacrolimus 13.1 5.0 - [facility] Level 15.0 ug/L [facility] [...] Code Phon e Number [facility] 500 [place], [place] [phone] [place] [address] LABS documented in this encounter Visit Diagnoses Not on filedocumented in this encounter Care Teams Circus Supervisor Relationship Specialty Start Date End Date Momo Forbes PCP - General Family Practice 01/02/14 [facility] [address] [place] [address] Ingrid Santana, RN Registered Nurse Transplant 02/10/12 10/01/15 documented as of this encounter
--- OUTSIDE RECORDS SUMMARY | 2022-04-14 11:09 | XMS_ITS | Encounter Summary ---
:1950 Author Organization [place] Address Critical access hospital0 [facility] [address] Care Team Providers Name Role Phone Ingrid Santana RN Unavailable Momo Forbes Primary Care Provider Reason for Visit Reason Onset Date Comments Transplant 06/20/2014 FK 6.6 Encounter Details Date Type Department Care Team Description 06/20/2014 Telephone Nephrology Carmelita Rosario, Transplant (FK 6.6) 2nd Floor, Clinic 2A [place] [phone] Social History Tobacco Use Types Packs/Day [...] transplant documented in this encounter Care Teams Jig Bore Tool Maker Relationship Specialty Start Date End Date Momo Forbes PCP - General Family Practice 01/02/14 [facility] [address] [place] [address] Ingrid Santana, BOGDAN Registered Nurse Transplant 02/10/12 10/01/15 documented as of this encounter
--- OUTSIDE RECORDS SUMMARY | 2022-04-14 11:09 | XMS_ITS | Encounter Summary ---
:1950 Author Organization [place] Address [facility] [address] Care Team Providers Name Role Phone Ingrid Santana RN Unavailable Momo Forbes Primary Care Provider Reason for Visit Reason Comments Heart Problem 2 m f/u Post op AFIB s/p DCC V. on warfarin 4 weeks Encounter Details Date Type Department Care Team Description [facility] (Primary Dx[facility] Enrique Maria pecified essential hypertension; Heart Other and unspecified hyperlipidemia; [facility] ([facility] type 2 (H[facility] Building [place] 4th Floor, Clinic 4B [address] [phone] [place], [place] (Work) [phone] [phone] Social History Tobacco Use Types Packs/Day Years [...] questions or concerns. 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 Specific Benedict Urine 04/01/2014 1.017 1.003 - 1.035 Final [...] NEG Ketones Urine Negative NEG mg/dL Specific Benedict Urine 1.017 1.003 - 1.035 Blood Urine [...] uncontrolled documented in this encounter Care Teams Quality Assurance Nurse Relationship Specialty Start Date End Date Momo Forbes PCP - General Family Practice 01/02/14 [facility] [address] [place] [address] Ingrid Santana, RN Registered Nurse Transplant 02/10/12 10/01/15 documented as of this encounter
--- OUTSIDE RECORDS SUMMARY | 2022-04-14 11:09 | XMS_ITS | Encounter Summary ---
:1950 Author Organization [place] Address [address] [place] [address] Care Team Providers Name Role Phone Ingrid Santana RN Unavailable Momo Forbes Primary Care Provider Encounter Details Date Type Department Care Team Description 06/22/2014 Orders Only [facility], Joseph [facility], [facility] jm [place] [address] [phone] [place] [address] 910 [place] [address] (Wo rk) Social History Tobacco [...] AM R esults for this MASS SPECTROMETRY BILL BOARD POSTER procedure are in the results section. TACROLIMUS BY TANDEM Routine 07/08/2014 8:15 AM R esults for this MASS SPECTROMETRY BILL BOARD POSTER procedure are in the results section. TACROLIMUS BY TANDEM Routine 07/01/2014 8:25 AM R esults for this MASS SPECTROMETRY BILL BOARD POSTER procedure are in the results section. TACROLIMUS BY TANDEM Routine 06/24/2014 8:30 AM R esults for this MASS SPECTROMETRY BILL BOARD POSTER procedure are in the results section. documented in this encounter Results Tacrolimus level (07/15/2014 8:25 AM BILL BOARD POSTER) [facility] gist Method Time Signature Tacrolimus Last 07/14/14 [facility] Dose 2000 [facility] Tacrolimus 8.1 5.0 - [facility] Level 15.0 ug/L [facility] Comment: Tacrolimus Reference [...] / Volume Laterality 07/15/2014 8:25 AM 4 BILL BOARD POSTER 10:56 AM BILL BOARD POSTER Deysi Alicea MD LAB - BLOOD ORDERABLES Performing Organization Address City/State/ZIP Code Phon e Number [facility] 500 [place] [address] [facility] Tacrolimus level (07/08/2014 8:15 AM BILL BOARD POSTER) [facility] gist Method Time Signature Tacrolimus Last 1999 [facility] Dose 07/07/14 [facility] Tacrolimus 8.6 5.0 - [facility] Level 15.0 ug/L [facility] Comment: Tacrolimus Reference [...] / Volume Laterality 07/08/2014 8:15 AM 4 BILL BOARD POSTER 11:03 AM BILL BOARD POSTER Deysi Alicea MD LAB - BLOOD ORDERABLES Performing Organization Address City/State/ZIP Code Phon e Number [facility] 500 [place] [address] [facility] Tacrolimus level (07/01/2014 8:25 AM BILL BOARD POSTER) [facility] gist Method Time Signature Tacrolimus Last 1999, [facility] Dose 06/30/14 [facility] Tacrolimus 9.3 5.0 - [facility] Level 15.0 ug/L [facility] Comment: Tacrolimus Reference [...] / Volume Laterality 07/01/2014 8:25 AM 4 BILL BOARD POSTER 12:11 PM BILL BOARD POSTER Mingo Dangelo MD LAB - BLOOD ORDERABLES Performing Organization Address City/State/ZIP Code Phon e Number [facility] 500 [place] [address] [facility] Tacrolimus level (06/24/2014 8:30 AM BILL BOARD POSTER) [facility] gist Method Time Signature Tacrolimus Last 1999 [facility] Dose 06/23/14 [facility] Tacrolimus 10.5 5.0 - [facility] Level 15.0 ug/L [facility] Comment: Tacrolimus Reference [...] / Volume Laterality 06/24/2014 8:30 AM 4 BILL BOARD POSTER 11:18 AM BILL BOARD POSTER Deysi Alicea MD LAB - BLOOD ORDERABLES Performing Organization Address City/State/ZIP Code Phon e Number [facility] 500 [place] [address] [facility] LABS documented in this encounter Visit Diagnoses Not on filedocumented in this encounter Care Teams Starch Cooker Relationship Specialty Start Date End Date Momo Forbes PCP - General Family Practice 01/02/14 [facility] [address] [place] [address] Ingrid Santana, RN Registered Nurse Transplant 02/10/12 10/01/15 documented as of this encounter
--- OUTSIDE RECORDS SUMMARY | 2022-04-14 11:09 | XMS_ITS | Encounter Summary ---
:1950 Author Organization [place] Address [facility] [place] [address] Care Team Providers Name Role Phone Ingrid Santana RN Unavailable Momo Forbes Primary Care Provider Joseph Quintana MD Unavailable Encounter Details Date Type Department Care Team Description 07/17/2014 External Order Results The Transplant Ce nter Nurse, [facility] 2nd Floor, Clinic [address] [phone] Social History Tobacco Use Types Packs/Day Years [...] 8:28 AM Results f or this RESULTS TIME STUDY ENGINEER procedure are i n the results section. documented in this encounter Results (ABNORMAL) TXP External Lab Result (07/15/2014 8:28 AM TIME STUDY ENGINEER) [facility] Time Signature Sodium 138 135 - 145 [...] 60 (L) >60 LABDE SCAN (if ml/min/1.7 Saudi Arabian) 3m2 (External) GFR Estimated 49 (L) >60 [...] / / Volume Laterality 07/15/2014 8:28 AM TIME STUDY ENGINEER Narrative ZACHERYTYLER P[facility] - 07/17/2014 8:35 AM TIME STUDY ENGINEER Verified by Maribel Plunkett on 07/17/20 14. Patient Reported LABORATORY Performing Organization Address City/State/ZIP Code Phon e Number [facility] LABDE SCAN documented in this encounter Visit Diagnoses Not on filedocumented in this encounter Care Teams Exhibits Coordinator Relationship Specialty Start Date End Date Momo Forbes PCP - General Family Practice 01/02/14 [facility] [address] [place] [address] Ingrid Santana, RN Registered Nurse Transplant 02/10/12 10/01/15 Joseph Quintana, Assigned Nephrology 03/29/21 MD Provider [address] [place] [address] [address] [place], [place] [id number] documented as of this encounter
--- OUTSIDE RECORDS SUMMARY | 2022-04-14 11:09 | XMS_ITS | Encounter Summary ---
:1950 Author Organization [place] Address [facility]0 [facility] [place] [address] Care Team Providers Name Role Phone Ingrid Santana RN Unavailable Momo Forbes Primary Care Provider Encounter Details Date Type Department Care Team Description 06/17/2014 External Order Results The Transplant Ce ntjakob Nurse, [facility] 2nd Floor, Clinic [address]A [address] [phone] Social History Tobacco Use Types [...] 57 (L) >60 LABDE SCAN (if ml/min/1.7 Icelandic) 3m2 (External) GFR Estimated 47 (L) >60 [...] on filedocumented in this encounter Care Teams Roofing Contractor Relationship Specialty Start Date End Date Momo Forbes PCP - General Family Practice 01/02/14 [facility] [address] [place] [address] Ingrid Santana, RN Registered Nurse Transplant 02/10/12 10/01/15 documented as of this encounter
--- OUTSIDE RECORDS SUMMARY | 2022-04-14 11:09 | XMS_ITS | Encounter Summary ---
:1950 Author Organization [place] Address [facility] [place] [address] Care Team Providers Name Role Phone Ingrid Santana RN Unavailable Momo Forbes Primary Care Provider Joseph Quintana MD Unavailable Encounter Details Date Type Department Care Team Description 05/16/2014 External Order Results The Transplant Ce nter Nurse, [facility] 2nd Floor, Clinic [address] [phone] Social History Tobacco Use Types Packs/Day Years [...] (05/15/2014 8:16 AM CDT) Analysis Performed At [facility] Time Signature Sodium 141 135 [...] Estimated >60 >60 LABDE SCAN (if ml/min/1.7 Cambodian) 3m2 (External) GFR Estimated 52 (L) >60 [...] in this encounter Care Teams Director Of Content Marketing Relationship Specialty Start Date End Date Momo Forbes PCP - General Family Practice 01/02/14 [facility] [address] [place] [address] Ingrid Santana, RN Registered Nurse Transplant 02/10/12 10/01/15 Joseph Quintana, Assigned Nephrology 03/29/21 MD Provider [address] [place] [address] 353 [facility] 1932 [place] [address] documented as of this encounter
--- OUTSIDE RECORDS SUMMARY | 2022-04-14 11:09 | XMS_ITS | Encounter Summary ---
:1950 Author Organization [place] Address [facility] [place] [address] Care Team Providers Name Role Phone Ingrid Santana RN Unavailable Momo Forbes Primary Care Provider Reason for Visit Reason Onset Date Comments Pre Visit Planning - Done 05/13/2014 6 week f/u pos t op afib. medication changes last visit. Encounter Details Date Type Department Care Team Description 05/13/2014 PRE VISIT [facility] [address] Pre Visit Planning - Physicians Orestes Hernandez MD Done (6 week f/u post [facility] op afib. medication Building [place] changes last visit. ) 4th Floor, Clinic 4B [phone] [place] [address] (Wo rk) [phone] Social History Tobacco Use Types Packs/Day Years [...] on filedocumented in this encounter Care Teams Shoe Patternmaker Relationship Specialty Start Date End Date Momo Forbes PCP - General Family Practice 01/02/14 [facility] 2000 [place] [address] Ingrid Santana RN Registered Nurse Transplant 02/10/12 10/01/15 documented as of this encounter
--- OUTSIDE RECORDS SUMMARY | 2022-04-14 11:09 | XMS_ITS | Encounter Summary ---
:1950 Author Organization [place] Address [facility]0 [facility] [place] [address] Care Team Providers Name Role Phone Ingrid Santana RN Unavailable Momo Forbes Primary Care Provider Joseph Quintana MD Unavailable Encounter Details Date Type Department Care Team Description 07/03/2014 External Order Results The Transplant Ce nter Nurse, [facility] 2nd Floor, Clinic [address]A [address] [phone] Social History Tobacco Use Types Packs/Day Years [...] 8:27 AM Results f or this RESULTS GRADE SETTER procedure are i n the results section. documented in this encounter Results (ABNORMAL) TXP External Lab Result (07/01/2014 8:27 AM GRADE SETTER) [facility] Time [facility] Sodium 140 135 - [...] 57 (L) >60 LABDE SCAN (if ml/min/1.7 Dutch) 3m2 (External) GFR Estimated 47 (L) >60 [...] / / Volume Laterality 07/01/2014 8:27 AM GRADE SETTER Narrative JESSICA PFT - 07/03/2014 2:18 PM GRADE SETTER Verified by Xiomara Bello on 07/03/20 14. Patient Reported LABORATORY Performing Organization Address City/State/ZIP Code Phon e Number [facility] LABDE SCAN documented in this encounter Visit Diagnoses Not on filedocumented in this encounter Care Teams Bmw Service Technician Relationship Specialty Start Date End Date Momo Forbes PCP - General Family Practice 01/02/14 [facility] [address] [place] [address] Ingrid Santana, RN Registered Nurse Transplant 02/10/12 10/01/15 Joseph Quintana, Assigned Nephrology 03/29/21 MD Provider [address] [place] [address] 1932 [place], [place] [id number] documented as of this encounter
--- OUTSIDE RECORDS SUMMARY | 2022-04-14 11:09 | XMS_ITS | Encounter Summary ---
:1950 Author Organization [place] Address [facility] [address] Care Team Providers Name Role Phone Ingrid Santana RN Unavailable Momo Forbes Primary Care Provider Encounter Details Date Type Department Care Team Description 06/07/2014 External Order Results The Transplant Ce ntjakob Nurse, [facility] 2nd Floor, Clinic [address]A [address] [phone] Social History Tobacco Use [...] External Lab Result (06/05/2014 8:30 AM CDT) [facility] Method Time Signature Sodium (External) 138 [...] on filedocumented in this encounter Care Teams Banquet Houseperson Relationship Specialty Start Date End Date Momo Forbes PCP - General Family Practice 01/02/14 [facility] [address] [place] [phone] Ingrid Santana, RN Registered Nurse Transplant 02/10/12 10/01/15 documented as of this encounter
--- OUTSIDE RECORDS SUMMARY | 2022-04-14 11:09 | XMS_ITS | Encounter Summary ---
:1950 Author Organization [place] Address [address] [place] [address] Care Team Providers Name Role Phone Ingrid Santana RN Unavailable Momo Forbes Primary Care Provider Encounter Details Date Type Department Care Team Description 05/22/2014 Orders Only [facility], Joseph [facility], [facility] jm [place] [address] [phone] [place] [address] 862 [place] [address] (Wo rk) Social History Tobacco [...] Results Tacrolimus level (06/17/2014 8:05 AM CDT) [facility] Method Time Signature Tacrolimus Last 06/16/14 [facility] Dose 2000 [facility] Tacrolimus 6.5 5.0 - [facility] Level 15.0 ug/L [facility] Comment: Tacrolimus Reference Range Kidney [...] Phon e Number [facility] 500 [place], [place] [phone] [place] [address] [facility] Tacrolimus level (06/10/2014 7:52 AM CDT) [facility] gist Method Time Signature Tacrolimus Last 1999 [facility] Dose 06/09/14 [facility] Tacrolimus 7.9 5.0 - [facility] Level 15.0 ug/L [facility] Comment: Tacrolimus Reference Range Kidney [...] Phon e Number [facility] 500 [place], [place] [phone] [place] [address] [facility] Tacrolimus level (06/05/2014 8:28 AM CDT) [facility] gist Method Time Signature Tacrolimus Last 1999 [facility] Dose 06/04/14 [facility] Tacrolimus 7.9 5.0 - [facility] Level 15.0 ug/L [facility] Comment: Tacrolimus Reference Range Kidney [...] LAB - BLOOD ORDERABLES Performing Organization Address City/[facility]/ZIP Code Phon e Number [facility] [address] LABS Tacrolimus level (05/24/2014 8:05 AM CDT) [facility] gist Method Time Signature Tacrolimus 05/23/14 [facility] Last Dose 20:00 [facility] Tacrolimus Test 5.0 - [facility] Level canceled - 15.0 ug/L [facility] entry error Specimen Anatomical Collection Method Collection Time Receive d Time (Source) Location / / Volume Laterality 05/24/2014 8:05 AM 4 2:49 CDT PM CDT Deysi Alicea MD LAB - BLOOD ORDERABLES Performing Organization Address City/State/ZIP Code Phon e Number [facility] [address] LABS Tacrolimus level (05/24/2014 8:05 AM CDT) [facility] gist Method Time Signature Tacrolimus Last 05/23/14 [facility] Dose 20:[facility] Tacrolimus 5.8 5.0 - [facility] Level 15.0 ug/L [facility] Comment: Tacrolimus Reference Range Kidney [...] Phon e Number [facility] 500 [place], [place] [phone] [place] [address] LABS documented in this encounter Visit Diagnoses Not on filedocumented in this encounter Care Teams Restaurant Supervisor Relationship Specialty Start Date End Date Momo Forbes PCP - General Family Practice 01/02/14 [facility] [address] [place] [address] Ingrid Santana, RN Registered Nurse Transplant 02/10/12 10/01/15 documented as of this encounter
--- OUTSIDE RECORDS SUMMARY | 2022-04-14 11:09 | XMS_ITS | Encounter Summary ---
:1950 Author Organization [place] Address [facility] [place] [address] Care Team Providers Name Role Phone Ingrid Santana RN Unavailable Momo Forbes Primary Care Provider Reason for Visit Reason Comments RECHECK 3 month Tx follow Up Encounter Details Date Type Department Care Team Description 05/13/2014 Office Visit Nephrology Deysi Alicea, DM (diabetes mellitus), type 2 (H) (Primary Dx); 2nd Floor, Clinic 2A S/P kidney transplant Tommy Wilburn [address] [phone] (Wo rk) [phone] Social History Tobacco Use Types Packs/Day Years [...] discharged on Cumadin; Cumadin was stopped by college hire during the follow up visit, as he [...] Years of Education: 14 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
--- OUTSIDE RECORDS SUMMARY | 2022-04-14 11:09 | XMS_ITS | Encounter Summary ---
:1950 Author Organization [place] Address [facility]0 [facility] [place] [address] Care Team Providers Name Role Phone Ingrid Santana RN Unavailable Momo Forbes Primary Care Provider Joseph Quintana MD Unavailable Encounter Details Date Type Department Care Team Description 06/08/2014 External Order Results The Transplant Ce nter Nurse, [facility] 2nd Floor, Clinic [address]A [address] [phone] Social History Tobacco Use Types [...] External Lab Result (06/05/2014 8:30 AM CDT) [facility] [employer] [facility] Method Time Signature Sodium (External) 138 135 [...] on filedocumented in this encounter Care Teams Pricing Strategist Relationship Specialty Start Date End Date Momo Forbes PCP - General Family Practice 01/02/14 [facility] [address] [place] [address] Ingrid Santana, RN Registered Nurse Transplant 02/10/12 10/01/15 Joseph Quintana, Assigned Nephrology 03/29/21 MD Provider [address] [place] [address] 1932 [place] [address] documented as of this encounter
--- OUTSIDE RECORDS SUMMARY | 2022-04-14 11:09 | XMS_ITS | Encounter Summary ---
:1950 Author Organization [place] Address [facility] [place] [address] Care Team Providers Name Role Phone Ingrid Santana RN Unavailable Momo Forbes Primary Care Provider Joseph Quintana MD Unavailable Encounter Details Date Type Department Care Team Description 07/10/2014 External Order Results The Transplant Ce nter Nurse, [facility] 2nd Floor, Clinic [address]A [address] [phone] Social History Tobacco Use Types Packs/Day Years [...] 8:17 AM Results f or this RESULTS BORDER MACHINE OPERATOR procedure are i n the results section. documented in this encounter Results (ABNORMAL) TXP External Lab Result (07/08/2014 8:17 AM BORDER MACHINE OPERATOR) [facility] Sodium 138 135 - [...] Estimated >60 >60 LABDE SCAN (if ml/min/1.7 Jordanian) 3m2 (External) GFR Estimated 51 (L) >60 [...] / / Volume Laterality 07/08/2014 8:17 AM BORDER MACHINE OPERATOR Narrative JESSICA PFT - 07/10/2014 6:20 AM BORDER MACHINE OPERATOR Verified by Janee Alexis on 07/10/2014 . Patient Reported LABORATORY Performing Organization Address City/State/ZIP Code Phon e Number BREEZE PFT LABDE SCAN documented in this encounter Visit Diagnoses Not on filedocumented in this encounter Care Teams Technical Support Assistant Relationship Specialty Start Date End Date Momo Forbes PCP - General Family Practice 01/02/14 [facility] [address] [place] [address] Ingrid Santana, RN Registered Nurse Transplant 02/10/12 10/01/15 Joseph Quintana, Assigned Nephrology 03/29/21 MD Provider [address] [place] [address] [address] [place] [address] documented as of this encounter
--- OUTSIDE RECORDS SUMMARY | 2022-04-14 11:09 | XMS_ITS | Encounter Summary ---
:1950 Author Organization [place] Address [address] [place] [address]. [place] [address] Care Team Providers Name Role Phone Ingrid Santana RN Unavailable Momo Forbes Primary Care Provider Encounter Details Date Type Department Care Team Description 05/02/2014 Orders Only Nephrology Shiva Kahn RN -donor kidney 2nd Floor, Clinic 2A [facility] transplant recipient Tomym Josephensteen [address] [place] [address] [place] [phone] Social History Tobacco Use Types Packs/Day Years [...] transplant documented in this encounter Care Teams Prefitter Relationship Specialty Start Date End Date Momo Forbes PCP - General Family Practice 01/02/14 [facility] [address] [place] [address] Ingrid Santana RN Registered Nurse Transplant 02/10/12 10/01/15 documented as of this encounter
--- OUTSIDE RECORDS SUMMARY | 2022-04-14 11:09 | XMS_ITS | Encounter Summary ---
:1950 Author Organization [place] Address [address] [place] [address]. [place] [address] Care Team Providers Name Role Phone Ingrid Santana RN Unavailable Momo Forbes Primary Care Provider Encounter Details Date Type Department Care Team Description 05/17/2014 Orders Only Nephrology Shiva Kahn RN -donor kidney 2nd Floor, Clinic 2A [facility] transplant recipient Tommy Mimateen [address] [place] [address] (Primary Dx) Building [address] [place] [address] [phone] Social History Tobacco Use Types Packs/Day Years [...] transplant documented in this encounter Care Teams Strategic Partnership Representative Relationship Specialty Start Date End Date Momo Forbes PCP - General Family Practice 01/02/14 [facility] [address] [place] [address] Ingrid Santana, RN Registered Nurse Transplant 02/10/12 10/01/15 documented as of this encounter
--- OUTSIDE RECORDS SUMMARY | 2022-04-14 11:09 | XMS_ITS | Encounter Summary ---
:1950 Author Organization [place] Address [address] [place] [address]. [place] [address] Care Team Providers Name Role Phone Ingrid Santana RN Unavailable Momo Forbes Primary Care Provider Encounter Details Date Type Department Care Team Description 05/27/2014 Orders Only Nephrology Shiva Kahn RN -donor kidney 2nd Floor, Clinic 2A [facility] transplant recipient Tommy Mimateen [address] [place] [address] [place] [address] [phone] Social History Tobacco Use Types Packs/Day Years [...] transplant documented in this encounter Care Teams Child Care Centre Director Relationship Specialty Start Date End Date Momo Forbes PCP - General Family Practice 01/02/14 [facility] [address] [place] [address] Ingrid Santana RN Registered Nurse Transplant 02/10/12 10/01/15 documented as of this encounter
--- OUTSIDE RECORDS SUMMARY | 2022-04-14 11:09 | XMS_ITS | Encounter Summary ---
:1950 Author Organization [place] Address [facility] [place] [address] Care Team Providers Name Role Phone Ingrid Santana RN Unavailable Momo Forbes Primary Care Provider Joseph Quintana MD Unavailable Encounter Details Date Type Department Care Team Description 06/24/2014 External Order Results The Transplant Ce nter Nurse, [facility] 2nd Floor, Clinic [address]A [address] [phone] Social History Tobacco Use Types Packs/Day Years [...] 8:37 AM Results f or this RESULTS PUSHER RUNNER procedure are i n the results section. documented in this encounter Results (ABNORMAL) TXP External Lab Result (06/24/2014 8:37 AM PUSHER RUNNER) [facility] Time Signature Sodium 139 135 - [...] 54 (L) >60 LABDE SCAN (if ml/min/1.7 Malaysian) 3m2 (External) GFR Estimated 44 (L) >60 [...] / / Volume Laterality 06/24/2014 8:37 AM PUSHER RUNNER Narrative JESSICA PFT - 06/24/2014 2:52 PM PUSHER RUNNER Verified by Sofie Verdin on 4. Patient Reported LABORATORY Performing Organization Address City/State/ZIP Code Phon e Number BREEZE PFT LABDE SCAN documented in this encounter Visit Diagnoses Not on filedocumented in this encounter Care Teams Water Treatment Specialist Relationship Specialty Start Date End Date Momo Forbes PCP - General Family Practice 01/02/14 [facility] [address] [place] [address] Ingrid Santana, RN Registered Nurse Transplant 02/10/12 10/01/15 Joseph Quintana, Assigned Nephrology 03/29/21 MD Provider [address] [place] [address] 1932 [place], [place] [id number] documented as of this encounter
--- OUTSIDE RECORDS SUMMARY | 2022-04-14 11:09 | XMS_ITS | Encounter Summary ---
:1950 Author Organization [place] Address [address] [place] [address]. [place] [address] Care Team Providers Name Role Phone Ingrid Santana RN Unavailable Momo Forbes Primary Care Provider Reason for Visit Reason Onset Date Comments Refill Request 04/05/2014 Tamy Cabrera Encounter Details Date Type Department Care Team Description 04/05/2014 Refill The Transplant Migel Martinez, Refill Request 2nd Floor, Clinic 2A [facility] [address] [place] [address] antoprazole) Building [facility] [address] [place] [address] 88 [place] [address] [phone] Social History Tobacco Use Types Packs/Day Years [...] Last Fill: 03/14/14 Qty: 30 [facility] [phone] documented in this encounter Plan of Treatment Not on filedocumented as of this encounter Visit Diagnoses Diagnosis S/P kidney transplant Kidney replaced by transplant Atrial fibrillation (H) Atrial fibrillation documented in this encounter Care Teams Blueprint Reproducer Relationship Specialty Start Date End Date Momo Forbes PCP - General Family Practice 01/02/14 [facility] [address] [place] [address] Ingrid Santana, RN Registered Nurse Transplant 02/10/12 10/01/15 documented as of this encounter
--- OUTSIDE RECORDS SUMMARY | 2022-04-14 11:09 | XMS_ITS | Encounter Summary ---
:1950 Author Organization [place] Address [facility] [place] [address] Care Team Providers Name Role Phone Ingrid Santana RN Unavailable Momo Forbes Primary Care Provider Joseph Quintana MD Unavailable Encounter Details Date Type Department Care Team Description 05/27/2014 External Order Results The Transplant Ce nter Nurse, [facility] 2nd Floor, Clinic 2A [address] [phone] Social History Tobacco Use Types Packs/Day Years [...] (05/24/2014 8:11 AM CDT) Analysis Performed At [facility] Time Signature Sodium 142 135 - [...] Estimated >60 >60 LABDE SCAN (if ml/min/1.7 Equatorial Guinean) 3m2 (External) GFR Estimated 52 (L) >60 [...] on filedocumented in this encounter Care Teams Polishing Machine Tender Relationship Specialty Start Date End Date Momo Forbes PCP - General Family Practice 01/02/14 [facility] [address] [place] [address] Ingrid Santana, RN Registered Nurse Transplant 02/10/12 10/01/15 Joseph Quintana, Assigned Nephrology 03/29/21 MD Provider [address] [place] [address] 353 [facility] [address] [place] [address] documented as of this encounter
--- OUTSIDE RECORDS SUMMARY | 2022-04-14 11:09 | XMS_ITS | Encounter Summary ---
:1950 Author Organization [place] Address [facility] [place] [address] Care Team Providers Name Role Phone Ingrid Santana RN Unavailable Momo Forbes Primary Care Provider Encounter Details Date Type Department Care Team Description 06/10/2014 External Order Results The Transplant Ce ntjakob Nurse, [facility] 2nd Floor, Clinic 2A [address] [phone] Social History Tobacco Use Types [...] 60 (L) >60 LABDE SCAN (if ml/min/1.7 Ugandan) 3m2 (External) GFR Estimated 49 (L) >60 [...] on filedocumented in this encounter Care Teams Wooden Frame Builder Relationship Specialty Start Date End Date Momo Forbes PCP - General Family Practice 01/02/14 [facility] [address] [place] [id number] Ingrid Santana, RN Registered Nurse Transplant 02/10/12 10/01/15 documented as of this encounter
--- OUTSIDE RECORDS SUMMARY | 2022-04-14 11:09 | XMS_ITS | Encounter Summary ---
:1950 Author Organization [place] Address [facility] [place] [address] Care Team Providers Name Role Phone Ingrid Santana RN Unavailable Momo Forbes Primary Care Provider Reason for Visit Reason Comments Heart Problem 6 week F/U Encounter Details Date Type Department Care Team Description 05/14/2014 [facility] [place] [facility] Kei Hernandez, shanon carey (Primary Heart MD Dx) Tommy Wilburn [facility] Building [place] 4th Floor, Clinic [address]B [address] [address] [phone] [place], [place] (Work) [phone] Social History Tobacco Use Types Packs/Day Years [...] questions or concerns. 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
--- OUTSIDE RECORDS SUMMARY | 2022-04-14 11:09 | XMS_ITS | Encounter Summary ---
:1950 Author Organization [place] Address [facility] [place] [address] Care Team Providers Name Role Phone Ingrid Santana RN Unavailable Momo Forbes Primary Care Provider Encounter Details Date Type Department Care Team Description 05/20/2014 External Order Results The Transplant Ce ntjakob Nurse, [facility] 2nd Floor, Clinic 2A [address] [phone] Social History Tobacco Use Types [...] 55 (L) >60 LABDE SCAN (if ml/min/1.7 Somali) 3m2 (External) GFR Estimated 46 (L) >60 [...] on filedocumented in this encounter Care Teams Doll Maker Relationship Specialty Start Date End Date Momo Forbes PCP - General Family Practice 01/02/14 [facility] [address] [place] [address] Ingrid Santana, RN Registered Nurse Transplant 02/10/12 10/01/15 documented as of this encounter
--- OUTSIDE RECORDS SUMMARY | 2022-04-14 11:09 | XMS_ITS | Encounter Summary ---
:1950 Author Organization [place] Address [address] [facility] [place] [address] Care Team Providers Name Role Phone Ingrid Santana RN Unavailable Momo Forbes Primary Care Provider Reason for Visit Auth/Cert - Closed Specialty Diagnoses / Procedures Referred By Contact Refer red To Contact Surgery Diagnoses S/P Kidney Transplant Uu Periop Procedures COMBINED CYSTOSCOPY, REMOVE STENT(S) 500 [place] [address] Phone: Fax: Referral ID Status Reason Start Date Expiration Date Visits Requ ested Visits Authorized [id number] Closed 1 1 Encounter Details Date Type Department Care Team Description 04/01/2014 Anesthesia Event [facility] Clari Torres MD PeriOp Services [facility] ANESTHESIA 500 [place] [phone] [place] [address] [place] [address] (Wo rk) Anesthesia Record Procedure Summary Procedure Name Responsible Anesthesia Start Anesthesia Stop Time Anesthesiologist Time Romoval of Right Clari Torres MD 04/01/14 0829 04/01/14 0911 Double J Stent (Right Urethra) Events Date Time Event Comment 04/01/2014 0712 0829 An Start 0835 An Start Data 0844 AN INCISION 0900 an stop data 0911 An Stop Electronically s igned by dAdis Brannon on April 01, 2014 9:11 AM [...] benefits and alternatives discussed with: patient or retail sales representative. I agree with the plan written [...] Intra-op documented in this encounter Care Teams Boiler Installer Relationship Specialty Start Date End Date Momo Forbes PCP - General Family Practice 01/02/14 [place] [address] Ingrid Santana, RN Registered Nurse Transplant 02/10/12 10/01/15 documented as of this encounter
--- OUTSIDE RECORDS SUMMARY | 2022-04-14 11:09 | XMS_ITS | Encounter Summary ---
:1950 Author Organization [place] Address [address] [place] [address]. [place] [address] Care Team Providers Name Role Phone Ingrid Santana RN Unavailable Momo Forbes Primary Care Provider Encounter Details Date Type Department Care Team Description 04/04/2014 Orders Only Nephrology Shiva Kahn, RN S/P kidney transplant 2nd Floor, Clinic 2[facility] [address] [place] [address] [place] [phone] Social History Tobacco Use Types Packs/Day Years [...] documented in this encounter Care Teams Director Enterprise Systems Relationship Specialty Start Date End Date Momo Forbes PCP - General Family Practice 01/02/14 [facility] [address] [place] [address] Ingrid Santana, RN Registered Nurse Transplant 02/10/12 10/01/15 documented as of this encounter
--- OUTSIDE RECORDS SUMMARY | 2022-04-14 11:10 | XMS_ITS | Encounter Summary ---
:1950 Author Organization [place] Address [address] [facility] [address] Care Team Providers Name Role Phone Ingrid Santana RN Unavailable Momo Forbes Primary Care Provider Reason for Visit Reason Onset Date Comments Anticoagulation 03/29/2014 Encounter Details Date Type Department Care Team Description 03/29/2014 Telephone [facility] Mary Sheffield RN Anticoagulation Anticoagulation Clin ic [address] [place], [place] [phone] Social History Tobacco Use [...] \this patient. He has INRs done at [facility] He takes Warfarin 5 mg daily [...] on filedocumented in this encounter Care Teams Tow Motor Driver Relationship Specialty Start Date End Date Momo Forbes PCP - General Family Practice 01/02/14 [place] [address] Ingrid Santana, RN Registered Nurse Transplant 02/10/12 10/01/15 documented as of this encounter
--- OUTSIDE RECORDS SUMMARY | 2022-04-14 11:10 | XMS_ITS | Encounter Summary ---
:1950 Author Organization [place] Address [facility] [place] [address] Care Team Providers Name Role Phone Ingrid Santana RN Unavailable Momo Forbes Primary Care Provider Reason for Visit Reason Onset Date Comments Patient Reminder 03/26/2014 Encounter Details Date Type Department Care Team Description 03/26/2014 Telephone Nephrology Yesenia Clements CMA Patient Reminder 2nd Floor, Clinic [address] [place] [phone] Social History Tobacco Use Types [...] on filedocumented in this encounter Care Teams Negative Stripper Relationship Specialty Start Date End Date Momo Forbes PCP - General Family Practice 01/02/14 [facility] [address] [place] [address] Ingrid Santana, RN Registered Nurse Transplant 02/10/12 10/01/15 documented as of this encounter
--- OUTSIDE RECORDS SUMMARY | 2022-04-14 11:10 | XMS_ITS | Encounter Summary ---
:1950 Author Organization [place] Address [facility] [place] [address] Care Team Providers Name Role Phone Ingrid Santana RN Unavailable Momo Forbes Primary Care Provider Reason for Visit Reason Onset Date Comments Pt. Information/instruction 03/14/2014 Encounter Details Date Type Department Care Team Description 03/14/2014 Telephone [facility] Beto Womack Pt . Interventional Radio martha Dangelo RN Information/instructio 500 [place] [address] Social History Tobacco Use Types [...] on filedocumented in this encounter Care Teams Pump Installation And Servicer Relationship Specialty Start Date End Date Momo Forbes PCP - General Family Practice 01/02/14 [facility] [address] [place] [address] Ingrid Santana RN Registered Nurse Transplant 02/10/1210/16 documented as of this encounter
--- OUTSIDE RECORDS SUMMARY | 2022-04-14 11:10 | XMS_ITS | Encounter Summary ---
:1950 Author Organization [place] Address [address] [place] [address] Care Team Providers Name Role Phone Ingrid Santana RN Unavailable Momo Forbes Primary Care Provider Encounter Details Date Type Department Care Team Description 03/22/2014 Orders Only [facility], [facility], [facility] [place] [address] [phone] [place] [address] 286 [place] [address] (Wo rk) Social History Tobacco [...] Results Tacrolimus level (04/19/2014 8:40 AM CDT) [facility] Method Time Signature Tacrolimus Not Provided [facility] Last Dose [facility] Tacrolimus 10.3 5.0 - [facility] Level 15.0 ug/L [facility] Comment: Tacrolimus Reference [...] [facility] [address] [place], [place] [phone] [place] [address] [facility] Tacrolimus level (04/16/2014 8:22 AM CDT) Patholo gist Method Time Signature Tacrolimus Not Provided [facility] Last Dose [facility] Tacrolimus 9.1 5.0 - [facility] Level 15.0 ug/L [facility] Comment: Tacrolimus Reference [...] [facility] [address] [place], [place] [phone] [place] [address] [facility] Tacrolimus level (04/11/2014 8:40 AM CDT) [facility] gist Method Time Signature Tacrolimus Last 04/10/14 [facility] Dose 19:00 [facility] Tacrolimus 14.4 5.0 - [facility] Level 15.0 ug/L [facility] Comment: Tacrolimus Reference [...] [facility] [address] [place], [place] [phone] [place] [address] [facility] Tacrolimus level (04/09/2014 8:45 AM CDT) [facility] gist Method Time Signature Tacrolimus Last 04/08/14 [facility] Dose 2000 [facility] Tacrolimus 11.7 5.0 - [facility] Level 15.0 ug/L [facility] Comment: Tacrolimus Reference [...] [facility] [address] [place], [place] [phone] [place] [address] [facility] Tacrolimus level (04/05/2014 9:40 AM CDT) [facility] gist Method Time Signature Tacrolimus Last 1999 [facility] Dose 04/04/14 [facility] Tacrolimus 9.7 5.0 - [facility] Level 15.0 ug/L [facility] Comment: Tacrolimus Reference [...] [facility] [address] [place] [address] [facility] (ABNORMAL) Tacrolimus level (03/28/2014 8:30 AM CDT) [facility] gist Method Time Signature Tacrolimus Last 03/27/14 [facility] Dose 1900 [facility] Tacrolimus 15.8 (H) 5.0 - [facility] Level 15.0 ug/L [facility] Comment: Tacrolimus Reference [...] [facility] [address] [place], [place] [phone] [place] [address] [facility] Tacrolimus level (03/26/2014 9:18 AM CDT) [facility] gist Method Time Signature Tacrolimus Last 03/25/14 [facility] Dose 1900 [facility] Tacrolimus 9.2 5.0 - [facility] Level 15.0 ug/L [facility] Comment: Tacrolimus Reference [...] [facility] [address] [place], [place] [phone] [place] [address] [facility] Tacrolimus level (03/14/2014 9:00 AM CDT) [facility] gist Method Time Signature Tacrolimus Last 1999 [facility] Dose 03/13/14 [facility] Tacrolimus 9.5 5.0 - [facility] Level 15.0 ug/L [facility] Comment: Tacrolimus Reference [...] [facility] [address] [place], [place] [phone] [place] [address] LABS documented in this encounter Visit Diagnoses Not on filedocumented in this encounter Care Teams Plate Shear Operator Relationship Specialty Start Date End Date Momo Forbes PCP - General Family Practice 01/02/14 [facility] [address] [place] [address] Ingrid Santana RN Registered Nurse Transplant 02/10/12 10/01/15 documented as of this encounter
--- OUTSIDE RECORDS SUMMARY | 2022-04-14 11:10 | XMS_ITS | Encounter Summary ---
:1950 Author Organization [place] Address [facility] [place] [address] Care Team Providers Name Role Phone Ingrid Santana RN Unavailable Momo Forbes Primary Care Provider Encounter Details Date Type Department Care Team Description 02/18/2014 Orders Only Nephrology Shiva Kahn, -donor kidney transp lant recipient (Primary Dx); 2nd Floor, Clinic 2A RN High risk medications (not anticoagulant s) long-term use; Tommy Wilburn [facility] CATY HIGGINS terminal operator (current) use of anticoagulant s [place] [phone] [place] [phone] Social History Tobacco Use Types Packs/Day Years [...] for long-term (current) use of other medications [facility] (current) use of anticoagulant s Long-term (current) use of anticoagulant s documented in this encounter Care Teams Correctional Supervisor Lieutenant Relationship Specialty Start Date End Date Momo Forbes PCP - General Family Practice 01/02/14 [facility] [address] [place] [address] Ingrid Santana, RN Registered Nurse Transplant 02/10/12 10/01/15 documented as of this encounter
--- OUTSIDE RECORDS SUMMARY | 2022-04-14 11:10 | XMS_ITS | Encounter Summary ---
:1950 Author Organization [place] Address [address] [place] [address]. [place] [address] Care Team Providers Name Role Phone Ingrid Santana RN Unavailable Momo Forbes Primary Care Provider Encounter Details Date Type Department Care Team Description 03/01/2014 Orders Only Nephrology Shiva Kahn RN -donor kidney 2nd Floor, Clinic 2A [facility] transplant recipient Tommy Josephensteen [address] [place] [address] [place] [phone] Social History Tobacco Use Types Packs/Day Years [...] documented in this encounter Care Teams Court Bailiff Relationship Specialty Start Date End Date Momo Forbes PCP - General Family Practice 01/02/14 [facility] [address] [place] [address] Ingrid Santana RN Registered Nurse Transplant 02/10/12 10/01/15 documented as of this encounter
--- OUTSIDE RECORDS SUMMARY | 2022-04-14 11:10 | XMS_ITS | Encounter Summary ---
:1950 Author Organization [place] Address [address] [place] [address] Care Team Providers Name Role Phone Ingrid Santana RN Unavailable Momo Forbes Primary Care Provider Reason for Visit Auth/Cert - Closed Specialty Diagnoses / Procedures Referred By Contact Refer red To Contact Surgery Diagnoses Status Post Kidney Transplant Uu Periop Procedures COMBINED CYSTOSCOPY, REMOVE STENT(S) 500 [place] [address] Phone: Fax: Referral ID Status Reason Start Date Expiration Date Visits Requ ested Visits Authorized [id number] Closed 1 1 Encounter Details Date Type Department Care Team Description 03/11/2014 Hospital Encounter [facility] Mayur, Migel Evans, Same Day Surgery [facility] 420 [facility] 500 [facility] 195 [place] [address] [place] [address] (Wo rk) Social History Tobacco Use Types [...] 8:46 CDT AM CDT Migel Merchant MD [facility] [place] [employer] [facility] [employer] [facility] [facility] POCT Performing Organization Address City/State/ZIP Code Phon e Number FV POINT OF CARE TEST, GLUCOSE POINT OF CARE TEST, GLUCOSE documented in this encounter Visit Diagnoses Not on filedocumented in this encounter Active and Recently Administered Medications Care Teams Blacksmith Assistant Relationship Specialty Start Date End Date Momo Forbes PCP - General Family Practice 01/02/14 [facility] [address] [place] [address] Ingrid Santana, RN Registered Nurse Transplant 02/10/1216 documented as of this encounter
--- OUTSIDE RECORDS SUMMARY | 2022-04-14 11:10 | XMS_ITS | Encounter Summary ---
:1950 Author Organization [place] Address [facility] [place] [address] Care Team Providers Name Role Phone Ingrid Santana RN Unavailable Momo Forbes Primary Care Provider Reason for Visit Reason Comments RECHECK s/p kidney tx Auth/Cert - Closed Specialty Diagnoses / Procedures Referred By Contact Refer red To Contact Surgery Diagnoses S/P Kidney Transplant Uu Periop Procedures COMBINED CYSTOSCOPY, REMOVE STENT(S) 500 [place] [address] Phone: Fax: Referral ID Status Reason Start Date Expiration Date Visits Requ ested Visits Authorized [id number] Closed 1 1 Encounter Details Date Type Department Care Team Description 04/01/2014 Office Visit Nephrology Deysi Alicea Immunosuppressed status (H) (Primary Dx); 2nd Floor, Clinic MD Aline High risk medication use; 2A [facility] Kidney replaced by ania tTashi DOMÍNGUEZ S/P kidney transplant Wangensteen [address] [place] [address] [place], [place] (Work) [phone] [phone] Social History Tobacco Use Types Packs/Day Years [...] -no follow up, I will ask his marketing project coordinator to obtain results from his local [...] at home regularly; BP checked by me fum480/80; HE was previously on Metoprolol 12.5 mg [...] Years of Education: 14 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
--- OUTSIDE RECORDS SUMMARY | 2022-04-14 11:10 | XMS_ITS | Encounter Summary ---
:1950 Author Organization [place] Address [address] [place] [address] Care Team Providers Name Role Phone Ingrid Santana RN Unavailable Momo Forbes Primary Care Provider Encounter Details Date Type Department Care Team Description 03/15/2014 Hospital Encounter [facility] Susy Cole, Lymphocele Unit 2A [facility] [address] [place] [phone] [place], [place] [id number] (Wo rk) Social History Tobacco Use Types [...] until healed, wash daily with antibacterial soap. [facility] INTERVENTIONAL RADIOLOGY DEPARTMENT Procedure Physician Andrea Can Date of procedure Telephone numbers: [phone] Tuesday-Tuesday 8:00 am to 4:30 pm [phone] After 4:30 pm Tuesday-Tuesday, Weekends & Holidays. Ask for the Interventional Radiologist regional operations director. Someone is available 24 hours/day [facility] toll free number: Tuesday-Tuesday 8:00 [...] Luis Gibbons PA-C and Dr. Katey Glasgow; MADNY Culver observing Report given to: Fitz Escalera [...] CCRN March 15, 2014 9:20 AM Pager: [phone] Nano Cline NP - 03/15/2014 8:58 AM CDT Discussed order with Dr Merchant today. He would like drain placement if the fluid appears thin. If itappears to be a hematoma then aspiration only. D/w Drea resident and IR staff doing the case. Thanks [facility] WASTEWATER OPERATOR ([phone]) Jeanette Lopez RN - 03/15/2014 8:14 AM CDT Prepped and consented, INR 1.1 FSBS is 219 documented in this encounter Procedure Notes Drea Glasgow MD - 03/15/2014 9:23 AM CDT Interventional Radiology Brief Post Procedure Note Pre Procedure Diagnosis: perinephric fluid collection Post Procedure Diagnosis: Same Procedure: Aspiration of RLQ fluid collection over the tranplant kidney Proceduralist: Drea Glasgow MD, Andrea Gibbons PA-C Document Imaging Specialist: None Time Out: Prior to the start [...] CDT 10:05 AM CDT Celina Cole MD [facility] POCT Performing Organization Address City/State/ZIP Code [...] Dr. Yossi Cox Resident: Dr. Drea Glasgow Document Imaging Specialist: Andrea Gibbons PA-C. Medications: 1% lidocaine and [...] Dr. Yossi Cox Resident: Dr. Drea Glasgow Document Imaging Specialist: Andrea Gibbons PA-C. Medications: 1% lidocaine and [...] Component Value Ref Test Analysis Performed At [facility] Range Method Time Signature Specimen Aspirate [facility] LABS Gram Stain Many PMNs seen [facility] No organisms seen MICROBIOLOGY Micro Report FINAL [facility] Status 03/15/2014 MICROBIOLOGY Specimen Anatomical Collection Method Collection Time Receive d Time (Source) Location / / Volume Laterality 03/15/2014 9:05 AM 4 9:59 CDT AM CDT Celina Cole MD LAB - MICRO GENERAL ORDERABL ES Performing Organization Address City/[facility] Phon e Number [address] LABS [facility] MICROBIOLOGY (ABNORMAL) Fluid Culture (03/15/2014 9:05 AM CDT) Component Value Ref Test Analysis Performed At [facility] Range Method Time Signature Specimen Aspirate [facility] Description [facility] LABS Culture Micro Light growth Coagulase negat jo Staphylococcus Susceptibility testing not [facility] routinely done MICROBIOLOGY (A) Micro Report FINAL 03/18/2014 [facility] Status MICROBIOLOGY Specimen Anatomical Collection Method Collection Time Receive d Time (Source) Location / / Volume Laterality Fluid sample SPECIMEN OBTAINED 03/15/2014 9:05 AM 02/20 9:59 (specimen) BY ASPIRATION / CDT AM CDT Unknown Celina Cole MD LAB - MICRO GENERAL ORDERABL ES Performing Organization Address City/[facility] Phon e Number [address] LABS [facility] MICROBIOLOGY Triglyceride Fluid (03/15/2014 9:05 AM CDT) [facility] Method Time Signature Triglyceride Aspirate [facility] Fluid Source [facility] LABS Triglyceride 94 mg/dL [facility] Fluid [facility] LABS Comment: No reference ranges have been [...] e Number [facility] 500 [place], [place] [phone] [place] [address] LABS Cell count with differential fluid (03/15/2014 9:05 AM CDT) Component Value Ref Test Analysis [facility]formed [facility] Range Method Time Signature Body Fluid Aspirate [facility] Analysis Source [facility] LABS Color Fluid Brown [facility] LABS Appearance Turbid [facility] Fluid [facility] LABS RBC Fluid << Do Not /uL [facility] Report >> [facility] LABS WBC Fluid 50836 /uL [facility] LABS % Neutrophils 97 % [facility] Fluid [facility] LABS % Lymphocytes 2 % [facility] % Eosinophils 1 % [facility] Fluid [facility] LABS Specimen Anatomical Collection Method Collection Time Receive d Time (Source) Location / / Volume Laterality SPECIMEN OBTAINED 03/15/2014 9:05 AM 02/20 9:56 BY ASPIRATION / CDT AM CDT Unknown Celina Cole MD LAB - BODY FLUIDS ORDERABLES Performing Organization Address City/State/ZIP Code Phon e Number [facility] [address] LABS Lactate dehydrogenase fluid (03/15/2014 9:05 AM CDT) Component Value Ref Test Analysis Performed At [facility] gist Range Method Time Signature LD Fluid Source Aspirate [facility] LABS Lactate Canceled, Test credited U/L [facility] [...] e Number [facility] [address] LABS Creatinine fluid (03/15/2014 9:05 AM CDT) Patholo gist Method Time Signature Creatinine Aspirate [facility] Fluid Source [facility] LABS Creatinine 1.5 mg/dL [facility] Fluid [facility] LABS Comment: No reference ranges have been [...] e Number [facility] 500 [place] [address] [facility] LABS INR point of care (03/15/2014 8:06 AM CDT) P athologist Signature INR Point of 1.1 0.86 - POINT OF CARE Care 1.14 TEST, HANDHELD METER Specimen Anatomical Collection Method Collection Time Receive d Time (Source) Location / / Volume Laterality 03/15/2014 8:06 AM 4 8:30 CDT AM CDT Celina Cole MD LAB - BLOOD ORDERABLES Performing Organization Address City/[facility]/ZIP Code Phon e Number [facility] POINT OF [...] LAB - BEAKER POCT Performing Organization Address City/[facility]/ZIP Code Phon e Number [facility] POINT OF [...] Intra-procedure documented in this encounter Care Teams Desizing Machine Operator Relationship Specialty Start Date End Date Momo Forbes PCP - General Family Practice 01/02/14 [facility] 1999 [place] [address] Ingrid Santana, RN Registered Nurse Transplant 02/10/12 10/01/15 documented as of this encounter
--- OUTSIDE RECORDS SUMMARY | 2022-04-14 11:10 | XMS_ITS | Encounter Summary ---
:1950 Author Organization [place] Address [address] [facility] [place] [address] Care Team Providers Name Role Phone Ingrid Santana RN Unavailable Momo Forbes Primary Care Provider Reason for Referral Specialty Diagnoses / Procedures Referred By Contact Refer red To Contact Migel Merchant MD [address] [address] 6 Referral ID Status Reason Start Date Expiration Date Visits Requ ested Visits Authorized Scheduling Instructions ANTICOAGULATION CLINIC COLLABORATIVE PRA CTICE AGREEMENT The following represents a collaborative practice agreement among the physicians of the Clinic and staff of the Anticoagulat ion Clinic Service ([facility]) Physicians shall: 1. Refer patients requiring anticoagulat ion to a specialty service staffed by personnel of Pharmacy Services and super vised by Clinic physicians. 2. Respond to questions and referrals fr pharmacy staff regarding delinquent or difficult patients. 3. Inform the [facility] staff when a new patie nt [...] of adverse or sub-therapeutic effects including at [facility] the following: Has the patient experienced any [...] Department Care Team Description 03/29/2014 Orders Only LT[facility] Migel Merchant fibrillation (H) (Primary Dx); Anticoagulation Clin ic MD Nathan exterminator termite (current) use of anticoagulant s [address] [place], [place] [address] [place] [phone] [place] [address] Social History Tobacco Use Types Packs/Day Years [...] Routine Atrial fibri llation (H) Ordered: 03/29/2014 Seat Joiner (Current) Use Of Anticoagulants documented as of this encounter Visit Diagnoses Diagnosis Atrial fibrillation (H) - Primary Atrial fibrillation group home (current) use of anticoagulant s Long-term (current) use of anticoagulant s documented in this encounter Care Teams Banquet Coordinator Relationship Specialty Start Date End Date Momo Forbes PCP - General Family Practice 01/02/14 [facility] [address] [place] [address] Ingrid Santana, RN Registered Nurse Transplant 02/10/12 10/01/15 documented as of this encounter
--- OUTSIDE RECORDS SUMMARY | 2022-04-14 11:10 | XMS_ITS | Encounter Summary ---
:1950 Author Organization [place] Address [address] [place] [address] Care Team Providers Name Role Phone Ingrid Santana RN Unavailable Momo Forbes Primary Care Provider Encounter Details Date Type Department Care Team Description 02/19/2014 Orders Only [facility], [facility] [place] [address] [phone] [place] [address] 443 [place] [address] (Wo rk) Social History Tobacco [...] Results Tacrolimus level (03/19/2014 9:05 AM CDT) [facility] Method Time Signature Tacrolimus Last 03/18/14 [facility] Dose 2100 [facility] LABS Tacrolimus 13.1 5.0 - [facility] Level 15.0 ug/L [facility] LABS Comment: Tacrolimus Reference Range [...] Phon e Number [facility] 500 [place], [place] [phone] [place] [address] [facility] LABS Tacrolimus level (03/12/2014 9:40 AM CDT) [facility] gist Method Time Signature Tacrolimus Not Provided [facility] Last Dose [facility] LABS Tacrolimus 7.3 5.0 - [facility] Level 15.0 ug/L [facility] LABS Comment: Tacrolimus Reference Range [...] Phon e Number [facility] 500 [place], [place] [phone] [place] [address] [facility] LABS Tacrolimus level (03/08/2014 10:15 AM CDT) [facility] gist Method Time Signature Tacrolimus Last 03/07/14 [facility] Dose 2000 [facility] LABS Tacrolimus 6.1 5.0 - [facility] Level 15.0 ug/L [facility] LABS Comment: Tacrolimus Reference Range [...] Phon e Number [facility] 500 [place], [place] [phone] [place] [address] [facility] LABS Tacrolimus level (03/06/2014 5:13 PM CDT) [facility] gist Method Time Signature Tacrolimus Last 1400 [facility] Dose 03/05/14 [facility] LABS Tacrolimus 11.3 5.0 - [facility] Level 15.0 ug/L [facility] LABS Comment: Tacrolimus Reference Range [...] Phon e Number [facility] 500 [place], [place] [phone] [place] [address] [facility] LABS Tacrolimus level (03/01/2014 8:10 AM CDT) [facility] gist Method Time Signature Tacrolimus Last 02/28/14 [facility] Dose 1930 [facility] LABS Tacrolimus 10.6 5.0 - [facility] Level 15.0 ug/L [facility] LABS Comment: Tacrolimus Reference Range [...] LAB - BLOOD ORDERABLES Performing Organization Address City/State/[facility] Code Phon e Number [facility] [address] [place], [place] [phone] [place] [address] [facility] LABS Tacrolimus level (02/27/2014 8:15 AM CDT) [facility] gist Method Time Signature Tacrolimus Last 02/26/14 [facility] Dose 2000 [facility] LABS Tacrolimus 11.4 5.0 - [facility] Level 15.0 ug/L [facility] LABS Comment: Tacrolimus Reference Range [...] LAB - BLOOD ORDERABLES Performing Organization Address City/[facility] Code Phon e Number [facility] 500 [place], [place] [phone] [place] [address] LABS HLA Lukasz Class II Single Antigen (02/25/2014 10:43 AM CDT) Component Value Ref Test Analysis Performed At [facility] gist Range Method Time Signature SA2 [...] City/State/ZIP Code Phon e Number [facility] Immunology/[place], [place] [address] [facility] 500 [facility] [address] Building, Room 3-580 HISTOTRAC HLA Lukasz Class I Single Antigen (02/25/2014 10:43 AM CDT) Component Value Ref Test Analysis Performed At [facility] gist Range Method Time Signature SA1 [...] LAB - IMMUNOLOGY ORDERABLES Performing Organization Address City/[facility]/ZIP Code Phon e Number [facility] Immunology/[place], [place] [address] [facility] 500 [facility] [address] Building, Room 3-580 HISTOTRAC PRA Interfering Substance SCR (02/25/2014 10:43 AM CDT) Component Value Ref Test Analysis Performed At [facility] gist Range Method Time Signature Interfering [...] Code Phon e Number [facility] Immunology/Histocompatabil [place], [place] [address] [facility] 500 [facility] [address] Building, Room 3-580 HISTOTRAC Tacrolimus level (02/21/2014 8:45 AM CDT) [facility] gist Method Time Signature Tacrolimus Last 02/20/14 [facility] Dose 2000 [facility] LABS Tacrolimus 7.9 5.0 - [facility] Level 15.0 ug/L [facility] LABS Comment: Tacrolimus Reference Range [...] Phon e Number [facility] 500 [place] [address] [facility] LABS documented in this encounter Visit Diagnoses Not on filedocumented in this encounter Care Teams Freight Sorter Relationship Specialty Start Date End Date Momo Forbes PCP - General Family Practice 01/02/14 [facility] [address] [place] [address] Ingrid Santana, RN Registered Nurse Transplant 02/10/12 10/01/15 documented as of this encounter
--- OUTSIDE RECORDS SUMMARY | 2022-04-14 11:10 | XMS_ITS | Encounter Summary ---
:1950 Author Organization [place] Address [facility] [place] [address] Care Team Providers Name Role Phone Ingrid Santana RN Unavailable Momo Forbes Primary Care Provider Reason for Visit Reason Onset Date Comments [facility]ill Request [facility] Encounter Details Date Type Department Care Team Description 03/04/2014 Refill The Transplant Kaitlynn Moreno MD Refill Request 2nd Floor, Clinic 2A [facility] ([facility] [address] [place] [address] 88 [phone] [place], [place] [phone] (Wo rk) [phone] [phone] Social History Tobacco Use Types Packs/Day Years [...] Fill Date: 02/08/14 Quantity: 60 [facility] [phone] documented in this encounter Plan of Treatment Not on filedocumented as of this encounter Visit Diagnoses Diagnosis Atrial fibrillation (H) Atrial fibrillation documented in this encounter Care Teams Investment Underwriter Relationship Specialty Start Date End Date Momo Forbes PCP - General Family Practice 01/02/14 [place] [id number] Ingrid Santana, RN Registered Nurse Transplant 02/10/12 10/01/15 documented as of this encounter
--- OUTSIDE RECORDS SUMMARY | 2022-04-14 11:10 | XMS_ITS | Encounter Summary ---
:1950 Author Organization [place] Address [facility] [place] [address] Care Team Providers Name Role Phone Ingrid Santana RN Unavailable Momo Forbes Primary Care Provider Encounter Details Date Type Department Care Team Description 02/18/2014 Orders Only Nephrology Shiva Kahn RN -donor kidney transplant recipie nt (Primary Dx); 2nd Floor, Clinic 2A [facility] Kidney replaced by transplant; Tommy Wangensteen 420 [facility] S/P kidney transplant Building [address] [place] [phone] Social History Tobacco Use Types Packs/Day Years [...] transplant documented in this encounter Care Teams Office 365 Consultant Relationship Specialty Start Date End Date Forbes, Ton PCP - General Family Practice 01/02/14 [facility] [address] [place] [address] Ingrid Santana, RN Registered Nurse Transplant 02/10/12 10/01/15 documented as of this encounter
--- OUTSIDE RECORDS SUMMARY | 2022-04-14 11:10 | XMS_ITS | Encounter Summary ---
:1950 Author Organization [place] Address [facility] [place] [address] Care Team Providers Name Role Phone Ingrid Santana RN Unavailable Momo Forbes Primary Care Provider Encounter Details Date Type Department Care Team Description 02/18/2014 Orders Only The Transplant Deysi Burns, Kidney replaced by transplan t; 2nd Floor, Clinic 2A S/P kidney transplant [facility] [address] [place] [address] [place] [address] [address] [place] [address] [place], [place] [phone] (Wo rk) [address] [phone] Social History Tobacco Use Types Packs/Day Years [...] Signature Magnesium 1.5 (L) 1.6 - 2.3 [facility] mg/dL [facility] Specimen Anatomical Collection Method Collection Time Receive d Time (Source) Location / / Volume Laterality Blood specimen 02/18/2014 8:56 AM 014 8:57 (specimen) CDT AM CDT Kaitlynn Leon MD LAB - BLOOD ORDERABLES Performing Organization Address City/[facility]/ZIP Code Phon e Number [address] LABS (ABNORMAL) Phosphorus (02/18/2014 8:56 AM CDT) athologist Signature Phosphorus 1.9 (L) 2.5 - 4.5 [facility] mg/dL [facility] Specimen Anatomical Collection Method Collection Time Receive d Time (Source) Location / / Volume Laterality Blood specimen 02/18/2014 8:56 AM 014 8:57 (specimen) CDT AM CDT Kaitlynn Leon MD LAB - BLOOD ORDERABLES Performing Organization Address City/[facility]/ZIP Code Phon e Number [address] LABS Tacrolimus level (02/18/2014 8:56 AM CDT) Patholo gist Method Time Signature Tacrolimus Last 02/12/14 [facility] Dose 1930 [facility] Tacrolimus 14.1 5.0 - [facility] Level 15.0 ug/L [facility] Comment: Tacrolimus Reference Range Kidney Transplant [...] Phon e Number [facility] [address] [place] [address] [facility] LABS (ABNORMAL) CBC with platelets differential (02/18/2014 8:56 AM CDT) Patholo gist Method Time Signature WBC 6.3 4.0 - [facility] 11.0 [facility] 10e9/L [facility] RBC Count 2.59 (L) 4.4 - 5.9 [facility] 10e12/L [facility]S Hemoglobin 7.8 (L) 13.3 - [facility] 17.7 g/dL [facility] LABS Hematocrit 23.7 (L) 40.0 - [facility] 53.0 % [facility] MCV 92 78 - 100 [facility] fl [facility] MCH 30.1 26.5 - [facility] 33.0 pg [facility] MCHC 32.9 31.5 - [facility] 36.5 g/dL [facility] RDW 14.7 10.0 - [facility] 15.0 % [facility] Platelet Count 140 (L) 150 - 450 [facility] 10e9/L [facility]S Diff Method Automated [facility] Method [facility] % Neutrophils 84.7 % [facility] % Lymphocytes 3.8 % [facility] % Monocytes 6.0 % [facility] % Eosinophils 4.8 % [facility] % Basophils 0.5 % [facility] % Immature 0.2 % [facility] Granulocytes [facility] Absolute 5.3 1.6 - 8.3 [facility] Neutrophil 10e9/L [facility] Absolute 0.2 (L) 0.8 - 5.3 [facility] Lymphocytes 10e9/L [facility] Absolute 0.4 0.0 - 1.3 [facility] Monocytes 10e9/L [facility] Absolute 0.3 0.0 - 0.7 [facility] Eosinophils 10e9/L [facility] Absolute 0.0 0.0 - 0.2 [facility] Basophils 10e9/L [facility] Abs Immature 0.0 0 - 0.4 [facility] Granulocytes 10e9/L [facility] Specimen Anatomical Collection Method Collection Time Receive d Time (Source) Location / / Volume Laterality Blood specimen 02/18/2014 8:56 AM 014 8:57 (specimen) CDT AM CDT Kaitlynn Leon MD LAB - BLOOD ORDERABLES Performing Organization Address City/State/ZIP Code Phon e Number [facility] [address] [place], [place] [id number] [place] [address] LABS (ABNORMAL) Basic metabolic panel (02/18/2014 8:56 AM CDT) Patholo gist Method Time Signature Sodium 141 133 - 144 [facility] mmol/L [facility] Potassium 5.2 3.4 - 5.3 [facility] mmol/L [facility] Chloride 112 (H) 94 - 109 [facility] mmol/L [facility] Carbon Dioxide 18 (L) 20 - 32 [facility] mmol/L [facility] Anion Gap 11 6 - 17 [facility] mmol/L [facility] Glucose 185 (H) 60 - 99 [facility] mg/dL [facility] Urea Nitrogen 24 7 - 30 [facility] mg/dL [facility]S Creatinine 1.81 (H) 0.66 - [facility] 1.25 mg/dL [facility]S GFR Estimate 38 (L) >60 [facility] mL/min/1.7 [place] m2 [facility] GFR Estimate If 46 (L) >60 [facility] Black mL/min/1.7 [place] m2 [facility] Calcium 9.4 8.5 - 10.4 [facility] mg/dL [facility] Specimen Anatomical Collection Method Collection Time Receive d Time (Source) Location / / Volume Laterality Blood specimen 02/18/2014 8:56 AM 014 8:57 (specimen) CDT AM CDT Kaitlynn Leon MD LAB - BLOOD ORDERABLES Performing Organization Address City/[facility] Code Phon e Number [address] LABS (ABNORMAL) INR (02/18/2014 8:56 AM CDT) P athologist Signature INR 2.13 (H) 0.86 - 1.14 [facility] LABS Specimen Anatomical Collection Method Collection Time Receive d Time (Source) Location / / Volume Laterality Blood specimen 02/18/2014 8:56 AM 014 8:57 (specimen) CDT AM CDT Kaitlynn Leon MD LAB - BLOOD ORDERABLES Performing Organization Address City/[facility] Code Phon e Number [address] LABS documented in this encounter Visit Diagnoses Diagnosis Kidney replaced by transplant S/P kidney transplant Kidney replaced by transplant documented in this encounter Care Teams Dry Starch Supervisor Relationship Specialty Start Date End Date Momo Forbes PCP - General Family Practice 01/02/14 [facility] [address] [place] [address] Ingrid Santana, RN Registered Nurse Transplant 02/10/12 10/01/15 documented as of this encounter
--- OUTSIDE RECORDS SUMMARY | 2022-04-14 11:10 | XMS_ITS | Encounter Summary ---
:1950 Author Organization [place] Address [address] [place] [address]. [place] [address] Care Team Providers Name Role Phone Ingrid Santana RN Unavailable Momo Forbes Primary Care Provider Encounter Details Date Type Department Care Team Description 03/13/2014 Orders Only Nephrology Shiva Kahn, Atrial fibrillation (H); 2nd Floor, Clinic 2A RN -donor kidney transplant stefani Wilburn [address] [address] [phone] Social History Tobacco Use Types Packs/Day Years [...] transplant documented in this encounter Care Teams Biztalk Software Developer Relationship Specialty Start Date End Date Momo Forbes PCP - General Family Practice 01/02/14 [facility] [address] [place] [address] Ingrid Santana, RN Registered Nurse Transplant 02/10/12 10/01/15 documented as of this encounter
--- OUTSIDE RECORDS SUMMARY | 2022-04-14 11:10 | XMS_ITS | Encounter Summary ---
:1950 Author Organization [place] Address [address] [place] [address] Care Team Providers Name Role Phone Ingrid Santana RN Unavailable Momo Forbes Primary Care Provider Encounter Details Date Type Department Care Team Description 03/11/2014 Anesthesia Event [facility] Aly Esquivel MD PeriOp Services [address] [facility] [address] [address] [place], [place] [address] (Wo rk) Anesthesia Record Procedure Summary Procedure [...] benefits and alternatives discussed with: patient or outside energy sales representatives. Possibility of blood products discussed. Procedures and [...] this encounter Care Teams Assistant Professor Of Forestry Relationship Specialty Start Date End Date Momo Forbes PCP - General Family Practice 01/02/14 [facility] [address] [place] [address] Ingrid Santana, RN Registered Nurse Transplant 02/10/12 10/01/15 documented as of this encounter
--- OUTSIDE RECORDS SUMMARY | 2022-04-14 11:10 | XMS_ITS | Encounter Summary ---
:1950 Author Organization [place] Address [address] [place] [address]. [place] [address] Care Team Providers Name Role Phone Ingrid Santana RN Unavailable Momo Forbes Primary Care Provider Encounter Details Date Type Department Care Team Description 03/14/2014 Orders Only Nephrology Shiva Kahn RN -donor kidney 2nd Floor, Clinic 2A [facility] transplant recipient Tommy Josephensteen [address] [place] [address] [place] [phone] Social History Tobacco Use Types Packs/Day Years [...] transplant documented in this encounter Care Teams Hot Metal Charger Relationship Specialty Start Date End Date Momo Forbes PCP - General Family Practice 01/02/14 [facility] [address] [place] [address] Ingrid Santana RN Registered Nurse Transplant 02/10/12 10/01/15 documented as of this encounter
--- OUTSIDE RECORDS SUMMARY | 2022-04-14 11:10 | XMS_ITS | Encounter Summary ---
:1950 Author Organization [place] Address [address] [place] [address]. [place] [address] Care Team Providers Name Role Phone Ingrid Satnana RN Unavailable Momo Forbes Primary Care Provider Encounter Details Date Type Department Care Team Description 03/11/2014 Orders Only Transplant Surgery Celina Cole (Primary Clinic A, Dx) 2nd Floor, Clinic 2A [address] [address] [facility] [place] [address] Social History Tobacco Use Types [...] channels documented in this encounter Care Teams Bobtailer Relationship Specialty Start Date End Date Momo Forbes PCP - General Family Practice 01/02/14 [facility] [address] [place] [address] Ingrid Santana, RN Registered Nurse Transplant 02/10/12 10/01/15 documented as of this encounter
--- OUTSIDE RECORDS SUMMARY | 2022-04-14 11:10 | XMS_ITS | Encounter Summary ---
:1950 Author Organization [place] Address [address] [place] [address]. [place] [address] Care Team Providers Name Role Phone Ingrid Santana RN Unavailable Momo Forbes Primary Care Provider Encounter Details Date Type Department Care Team Description 03/19/2014 Orders Only Nephrology Shiva Kahn RN -donor kidney 2nd Floor, Clinic 2A [facility] transplant recipient Tommy Josephensteen [address] [place] [address] [place] [phone] Social History Tobacco Use Types Packs/Day Years [...] documented in this encounter Care Teams Senior Mechanical Design Engineer Relationship Specialty Start Date End Date Momo Forbes PCP - General Family Practice 01/02/14 [facility] [address] [place] [address] Ingrid Santana RN Registered Nurse Transplant 02/10/12 10/01/15 documented as of this encounter
--- OUTSIDE RECORDS SUMMARY | 2022-04-14 11:10 | XMS_ITS | Encounter Summary ---
:1950 Author Organization [place] Address [address] [place] [address]. [place] [address] Care Team Providers Name Role Phone Ingrid [...] 12-lead, tracing only (02/18/2014 9:53 AM CDT) [facility] gist Method Time Signature Interpretation ECG [...] filedocumented in this encounter Care Teams Production Planning Manager Relationship Specialty Start Date End Date Momo Forbes PCP - General Family Practice 01/02/14 [facility] [address] [place] [address] Ingrid Santana, RN Registered Nurse Transplant 02/10/12 10/01/15 documented as of this encounter
--- OUTSIDE RECORDS SUMMARY | 2022-04-14 11:10 | XMS_ITS | Encounter Summary ---
:1950 Author Organization [place] Address [facility] [place] [address] Care Team Providers Name Role Phone Ingrid Santana RN Unavailable Momo Forbes Primary Care Provider Reason for Visit Reason Onset Date Comments Pre Visit Planning - Done 03/08/2014 Appointment on 03/11/2014 Encounter Details Date Type Department Care Team Description 03/08/2014 Telephone Nephrology Alexandria Caldera, Pre Visit Planning - 2nd Floor, Clinic [address]A [address] REPORTER Done (Appointment on Sanders Akila 03/11/20 14) [address] [address] Social History Tobacco Use Types [...] bring list of medications. Toldpatient to call [phone] if any questions or needs to reschedule. Alexandria Caldera CMA documented in this encounter Plan of Treatment Not on filedocumented as of this encounter Visit Diagnoses Not on filedocumented in this encounter Care Teams Bounty Trapper Relationship Specialty Start Date End Date Momo Forbes PCP - General Family Practice 01/02/14 [place] [address] Ingrid Santana, RN Registered Nurse Transplant 02/10/12 10/01/15 documented as of this encounter
--- OUTSIDE RECORDS SUMMARY | 2022-04-14 11:10 | XMS_ITS | Encounter Summary ---
:1950 Author Organization [place] Address [address] [place] [address] Care Team Providers Name Role Phone Ingrid Santana RN Unavailable Momo Forbes Primary Care Provider Reason for Visit Auth/Cert - Closed Specialty Diagnoses / Procedures Referred By Contact Refer red To Contact Surgery Diagnoses S/P Kidney Transplant Uu Periop Procedures COMBINED CYSTOSCOPY, REMOVE STENT(S) [address] [place] [address] Phone: Fax: Referral ID Status Reason Start Date Expiration Date Visits Requ ested Visits Authorized [id number] Closed 1 1 Encounter Details Date Type Department Care Team Description 04/01/2014 Hospital Encounter formerly [facility] Migel Merchant, Same Day Surgery [facility] 420 [facility] 500 [facility] [address] [place] [address] [place] [address] (Wo rk) Social History Tobacco Use Types [...] Scott RN - 04/01/2014 10:15 AM CDT [facility], [place] Same-Day Surgery Adult Discharge Orders & Instructions [...] To contact a doctor, call or: ??? [phone] and ask for the resident academic interventionist for (answered 24 hours a day) ??? Emergency Department: [facility]: [phone] (TTY for hearing impaired: [phone]) documented in this encounter Medications at Time [...] Test Analysis Performed At [facility] Range Method Time Signature Specimen Unspecified [facility] Urine [facility]AMPUS LABS Special Specimen [facility] Requests received in MICROBIOLOGY preservative Culture Micro No growth [facility] MICROBIOLOGY Micro Report FINAL [facility] Status 04/02/2014 MICROBIOLOGY Specimen Anatomical Collection Method Collection Time Receive d Time (Source) Location / / Volume Laterality 04/01/2014 9:00 AM 4 9:18 CDT AM CDT Migel Merchant MD LAB - MICRO GENERAL ORDERABL ES Performing Organization Address City/State/ZIP Code Phon e Number [address] [address] [facility] LABS [facility] MICROBIOLOGY (ABNORMAL) UA with Microscopic (04/01/2014 9:00 AM CDT) Component Value Ref Test Analysis Performed At Patholo gist Range Method Time Signature Color Urine Yellow [facility] UNIVERSITY [facility] LABS Appearance Urine Clear [facility] LABS Glucose Urine 30 (A) NEG [facility] mg/dL [facility] Bilirubin Urine Negative [facility] Ketones Urine Negative NEG [facility] mg/dL [facility] Specific [place] 1.017 1.003 - [facility] Urine 1.035 [facility] Blood Urine Moderate (A) NEG [facility] pH Urine 6.0 5.0 - [facility] 7.0 pH [facility] [place] LABS Protein Albumin 10 (A) NEG [facility] Urine mg/dL [facility] Urobilinogen Normal 0.0 - [facility] mg/dL 2.0 [facility] mg/dL [facility]S Nitrite Urine Negative NEG [facility] Leukocyte Negative NEG [facility] Esterase Urine [facility] [place] [facility] Source Unspecified [facility] Urine [facility]ITY [facility] WBC Urine 2 0 - 2 [facility] /HPF [facility] LABS RBC Urine 30 (H) 0 - [...] Organization Address City/State/ZIP Code Phon e Number [address] LABS (ABNORMAL) INR (04/01/2014 8:36 AM CDT) P athologist Signature INR 1.64 (H) 0.86 - 1.14 [facility] LABS Specimen Anatomical Collection Method Collection Time Receive d Time (Source) Location / / Volume Laterality Blood specimen 04/01/2014 8:36 AM 014 8:41 (specimen) CDT AM CDT Momo Jimenez MD LAB - BLOOD ORDERABLES Performing Organization Address City/State/ZIP Code Phon e Number [address] LABS EKG 12-lead, tracing only (04/01/2014 8:28 AM CDT) [facility] gist Method Time Signature Interpretation ECG [...] athologist Signature Potassium 4.1 3.4 - 5.3 [facility] mmol/L CAMPUS LABS Specimen Anatomical Collection Method Collection Time Receive d Time (Source) Location / / Volume Laterality Blood specimen 04/01/2014 8:11 AM 014 8:27 (specimen) CDT AM CDT Momo Jimenez MD LAB - BLOOD ORDERABLES Performing Organization Address City/[facility]/ZIP Code Phon e Number [facility] [address] LABS (ABNORMAL) Hemoglobin (04/01/2014 8:11 AM CDT) athologist Signature Hemoglobin 10.2 (L) 13.3 - [facility] 17.7 g/dL CAMPUS LABS Specimen Anatomical Collection Method Collection Time Receive d Time (Source) Location / / Volume Laterality Blood specimen 04/01/2014 8:11 AM 014 8:27 (specimen) CDT AM CDT Momo Jimenez MD LAB - BLOOD ORDERABLES Performing Organization Address City/[facility]/ZIP Code Phon e Number [facility] [address] LABS (ABNORMAL) Glucose by meter (04/01/2014 8:02 AM CDT) athologist Signature Glucose 158 (H) 60 - 99 POINT OF CARE mg/dL TEST, GLUCOSE Specimen Anatomical Collection Method Collection Time Receive d Time (Source) Location / / Volume Laterality 04/01/2014 8:02 AM 4 8:05 CDT AM CDT Migel Merchant MD LAB - BEAKER POCT Performing Organization Address City/[facility]/ZIP Code Phon e Number [facility] POINT OF CARE TEST, GLUCOSE POINT OF CARE TEST, GLUCOSE documented in this encounter Visit Diagnoses Not on filedocumented in this encounter Active and Recently Administered Medications Times are shown in CDT. Scheduled Medication Order 03/30/2014 03/31/2014 04/01/2014 levofloxacin (LEVAQUIN) IVPB 500 mg (COMPLETED) 0850 (Given - Provider: Addis Brannon APRN SAND SYSTEM OPERATOR - Comment: Asked by Fellow to give [...] Intra-procedure documented in this encounter Care Teams Farm Field Manager Relationship Specialty Start Date End Date Momo Forbes PCP - General Family Practice 01/02/14 [facility] [address] [place] [address] Ingrid Santana, RN Registered Nurse Transplant 02/10/12 10/01/15 documented as of this encounter
--- OUTSIDE RECORDS SUMMARY | 2022-04-14 11:10 | XMS_ITS | Encounter Summary ---
:1950 Author Organization [place] Address [facility] [place] [address] Care Team Providers Name Role Phone Ingrid Santana RN Unavailable Momo Forbes Primary Care Provider Reason for Visit Reason Comments Surgical Followup kidney tx 02/02/14 Encounter Details Date Type Department Care Team Description 02/25/2014 Office Visit Transplant Surgery Migel Merchant Hypophosp hatemia (Primary Dx); Clinic MD Nathan Kidney replaced by transplant; 2nd Floor, Clinic 2A 420 [place] -donor kidney transp lant recipient; [address] 1 95 High risk medications (not anticoagulant s) long-term use; Building [facility] (current) use of anticoagulant s; 6 [place], [place] Hyp[place]emia; [place] [address] Orthostatic hypotension [facility] 88 [place], [place] (Work) [address] Social History Tobacco Use [...] mid wound(lemon sized) c/w known hematoma. Procedure: Savage and drain removed. Steri strips applied. Hematology: [...] will give mag and phos prescription. 5. Savage - Out today 6 Drain -- out [...] sults (not anticoagulants) section . long-term use intermission coordinator (current) use of anticoagulants PHOSPHORUS Routine 02/25/2014 [...] Component Value Ref Test Analysis Performed At [facility] Range Method Time Signature BK Virus DNA Plasma, EDTA [facility] Quant Source anticoagulant [facility] BK Virus DNA <390 [facility] Quant Unit: cpy/mL [facility] Copy/mL [place] [facility] BK Virus DNA <2.6 [facility] Quant Log Unit: log [place] (Note) [place] [facility] INTERPRETIVE INFORMATION: BK Virus, Quantitation by [...] methodologies. Test developed and characteristics determined by [employer]. See Compliance Statement A: [employer] BK Virus DNA Not Detected [facility] Quant Interp Reference range: Not Detected [place] (Note) [place] [facility] Performed by [employer], [address] [place] [id number] [email or web address], Kj Mcmillan MD, Lab. Director Specimen Anatomical Collection Method Collection Time Receive d Time (Source) Location / / Volume Laterality Blood specimen 02/25/2014 10:54 4 (specimen) AM CDT 10:55 AM CDT Deysi Alicea MD LAB - MICRO GENERAL ORDERABL ES Performing Organization Address City/[facility]/ZIP Code Phon e Number [address] [address] [facility] Immunology recipient: SOT PRA (Post Tx for Donor Spec Antibody) (02/25/2014 10:54 AM CDT) [facility] Method Time Signature Immunology PRA [facility] Test Name [facility] Immunology Specimen [facility] Result received - [facility]S report to follow upon completion. Specimen Anatomical Collection Method Collection Time Receive d Time (Source) Location / / Volume Laterality Blood specimen 02/25/2014 10:54 4 (specimen) AM CDT 10:55 AM CDT Deysi Alicea MD LAB - IMMUNOLOGY ORDERABLES Performing Organization Address City/[facility]/ZIP Code Phon e Number [address] LABS (ABNORMAL) INR (02/25/2014 10:53 AM CDT) P athologist Signature INR 2.39 (H) 0.86 - 1.14 [facility] Specimen Anatomical Collection Method Collection Time Receive d Time (Source) Location / / Volume Laterality Blood specimen 02/25/2014 10:53 4 (specimen) AM CDT 10:54 AM CDT Migel Merchant MD LAB - BLOOD ORDERABLES Performing Organization Address City/[facility] Code Phon e Number [address] LABS (ABNORMAL) Magnesium (02/25/2014 10:53 AM CDT) P athologist Signature Magnesium 1.5 (L) 1.6 - 2.3 [facility] mg/dL [place] [facility] Specimen Anatomical Collection Method Collection Time Receive d Time (Source) Location / / Volume Laterality Blood specimen 02/25/2014 10:53 4 (specimen) AM CDT 10:54 AM CDT Deysi Alicea MD LAB - BLOOD ORDERABLES Performing Organization Address City/State/ZIP Code Phon e Number [address] LABS (ABNORMAL) Phosphorus (02/25/2014 10:53 AM CDT) P athologist Signature Phosphorus 1.3 (L) 2.5 - 4.5 [facility] mg/dL [place] [facility] Specimen Anatomical Collection Method Collection Time Receive d Time (Source) Location / / Volume Laterality Blood specimen 02/25/2014 10:53 4 (specimen) AM CDT 10:54 AM CDT Deysi Alicea MD LAB - BLOOD ORDERABLES Performing Organization Address [facility] Code Phon e Number [facility] [address] LABS Mycophenolic acid (02/25/2014 10:53 AM CDT) Component Value Ref Test Analysis Performed At [facility] gist Range Method Time Signature Last [...] City/[facility]/ZIP Code Phon e Number [facility] [address] LABS Tacrolimus level (02/25/2014 10:53 AM CDT) [facility] gist Method Time Signature Tacrolimus 02/24/14 ?1999 [facility] Last Dose CORRECTED ON 02/25 AT 1055: PREVIOUSLY REPORTED [address] [facility] Tacrolimus 9.1 5.0 - [facility] Level 15.0 ug/L [facility] [...] Phon e Number [facility] [address] LABS (ABNORMAL) Basic metabolic panel (02/25/2014 10:53 AM CDT) [facility] gist Method Time Signature Sodium 137 133 - 144 [facility] mmol/L [facility] Potassium 4.6 3.4 - 5.3 [facility] mmol/L [facility] Chloride 108 94 - 109 [facility] mmol/L [facility] Carbon Dioxide 19 (L) 20 - 32 [facility] mmol/L [facility] Anion Gap 10 6 - 17 [facility] mmol/L [facility] Glucose 217 (H) 60 - 99 [facility] mg/dL [facility] Urea Nitrogen 13 7 - 30 [facility] mg/dL [facility] Creatinine 1.48 (H) 0.66 - [facility] 1.25 mg/dL [facility] GFR Estimate 48 (L) >60 [facility] mL/min/1.7 [place] m2 CAMPUS LABS GFR Estimate If 58 (L) >60 [facility] Black mL/min/1.7 [place] [address] CAMPUS LABS Calcium 9.6 8.5 - 10.4 [facility] mg/dL [facility] Specimen Anatomical Collection Method Collection Time Receive d Time (Source) Location / / Volume Laterality Blood specimen 02/25/2014 10:53 4 (specimen) AM CDT 10:54 AM CDT Deysi Alicea MD LAB - BLOOD ORDERABLES Performing Organization Address City/State/ZIP Code Phon e Number [address] [address] [facility] (ABNORMAL) CBC with platelets differential (02/25/2014 10:53 AM CDT) [facility] gist Method Time Signature WBC 4.9 4.0 - [facility] 11.0 [facility] 10e9/L CAMPUS LABS RBC Count 2.67 (L) 4.4 - 5.9 [facility] 10e12/L [facility] Hemoglobin 7.8 (L) 13.3 - [facility] 17.7 g/dL [facility] Hematocrit 23.5 (L) 40.0 - [facility] 53.0 % [facility] MCV 88 78 - 100 [facility] fl [facility] MCH 29.2 26.5 - [facility] 33.[address] [facility] MCHC 33.2 31.5 - [facility] 36.5 g/dL [facility] RDW 14.3 10.0 - [facility] 15.0 % [facility] Platelet Count 179 150 - 450 [facility] 10e9/L [facility] Diff Method Automated [facility] Method [facility] % Neutrophils 89.4 % [facility] % Lymphocytes 3.9 % [facility] % Monocytes 5.1 % [facility] % Eosinophils 1.2 % [facility] % Basophils 0.2 % [facility] % Immature 0.2 % [facility] Granulocytes [facility] Absolute 4.4 1.6 - 8.3 [facility] Neutrophil 10e9/L [facility] Absolute 0.2 (L) 0.8 - 5.3 [facility] Lymphocytes 10e9/L [facility] Absolute 0.3 0.0 - 1.3 [facility] Monocytes 10e9/L [facility] Absolute 0.1 0.0 - 0.7 [facility] Eosinophils 10e9/L [facility] Absolute 0.0 0.0 - 0.2 [facility] Basophils 10e9/L [facility] Abs Immature 0.0 0 - 0.4 [facility] Granulocytes 10e9/L [facility] Specimen Anatomical Collection Method Collection Time Receive d Time (Source) Location / / Volume Laterality Blood specimen 02/25/2014 10:53 4 (specimen) AM CDT 10:54 AM CDT Deysi Alicea MD LAB - BLOOD ORDERABLES Performing Organization Address City/State/ZIP Code Phon e Number [facility] 500 [place] [address] [facility] documented in this encounter Visit Diagnoses Diagnosis 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 replaced by transplant -donor kidney transplant recipie nt Kidney replaced by transplant High risk medications (not anticoagulant s) long-term use Encounter for long-term (current) use of other medications [facility] (current) use of anticoagulant s Long-term (current) use of anticoagulant s Hypomagnesemia Disorders of magnesium metabolism Orthostatic hypotension documented in this encounter Care Teams Aerologist Relationship Specialty Start Date End Date Momo Forbes PCP - General Family Practice 01/02/14 [facility] [address] [place] [address] Ingrid Santana, RN Registered Nurse Transplant 02/10/12 10/01/15 documented as of this encounter
--- OUTSIDE RECORDS SUMMARY | 2022-04-14 11:10 | XMS_ITS | Encounter Summary ---
:1950 Author Organization [place] Address [facility]0 [facility] [address] Care Team Providers Name Role Phone Ingrid Santana RN Unavailable Momo Forbes Primary Care Provider Reason for Visit Reason Onset Date Comments Previsit 02/20/2014 Encounter Details Date Type Department Care Team Description 02/20/2014 Telephone Transplant Surgery C nanda Merchant, Migel Evans MD Previsit 2nd Floor, Clinic 2A [address] [address] [facility] [place] [phone] Social History Tobacco Use Types Packs/Day Years [...] on filedocumented in this encounter Care Teams Hard Tile Setter Apprentice Relationship Specialty Start Date End Date Momo Forbes PCP - General Family Practice 01/02/14 [place] [id number] Ingrid Santana, RN Registered Nurse Transplant 02/10/12 10/01/15 documented as of this encounter
--- OUTSIDE RECORDS SUMMARY | 2022-04-14 11:10 | XMS_ITS | Encounter Summary ---
:1950 Author Organization [place] Address [address] [place] [address]. [place] [address] Care Team Providers Name Role Phone Ingrid Santana RN Unavailable Momo Forbes Primary Care Provider Encounter Details Date Type Department Care Team Description 03/18/2014 Orders Only Nephrology Shiva Kahn RN -donor kidney 2nd Floor, Clinic 2A [facility] transplant recipient Tommy Josephensteen [address] [place] [address] [place] [id number] [phone] Social History Tobacco Use Types Packs/Day Years [...] transplant documented in this encounter Care Teams Major General Relationship Specialty Start Date End Date Momo Forbes PCP - General Family Practice 01/02/14 [facility] [address] [place] [address] Ingrid Santana RN Registered Nurse Transplant 02/10/12 10/01/15 documented as of this encounter
--- OUTSIDE RECORDS SUMMARY | 2022-04-14 11:10 | XMS_ITS | Encounter Summary ---
:1950 Author Organization [place] Address [address] [place] [address] Care Team Providers Name Role Phone Ingrid Santana RN Unavailable Momo Forbes Primary Care Provider Reason for Visit Auth/Cert - Closed Specialty Diagnoses / Procedures Referred By Contact Refer red To Contact Surgery Diagnoses S/P Kidney Transplant Uu Periop Procedures COMBINED CYSTOSCOPY, REMOVE STENT(S) 500 [place] [address] Phone: Fax: Referral ID Status Reason Start Date Expiration Date Visits Requ ested Visits Authorized [id number] Closed 1 1 Encounter Details Date Type Department Care Team Description 04/01/2014 Surgery [facility] Migel Merchant Romoval of Right Double PeriOp Services J Stent 500 [facility] [address] [place] [address] [place] [address] [place] [address] (Wo rk) Surgery Details Date/Time Status Location [...] Scott RN - 04/01/2014 10:15 AM CDT [facility], [place] Same-Day Surgery Adult Discharge Orders & Instructions [...] To contact a doctor, call or: ??? [phone] and ask for the resident auto air conditioning installer for (answered 24 hours a day) ??? Emergency Department: [facility]: [phone] (TTY for hearing impaired: [phone]) documented in this encounter Medications at Time [...] AM CDT Migel Merchant MD LAB - [facility] POCT Performing Organization Address City/State/ZIP Code Phon e Number [facility] POINT OF CARE TEST, GLUCOSE POINT OF CARE TEST, GLUCOSE Urine culture (04/01/2014 9:00 AM CDT) Component Value Ref Test Analysis Performed At [facility] gist Range Method Time Signature Specimen Unspecified [facility] Description Urine CAMPUS LABS Special Specimen [facility] Requests received in MICROBIOLOGY preservative Culture Micro No growth [facility] MICROBIOLOGY Micro Report FINAL [facility] Status 04/02/2014 MICROBIOLOGY Specimen Anatomical Collection Method Collection Time Receive d Time (Source) Location / / Volume Laterality 04/01/2014 9:00 AM 4 9:18 CDT AM CDT Migel Merchant MD LAB - MICRO GENERAL ORDERABL ES Performing Organization Address City/State/ZIP Code Phon e Number [facility] 500 [place] [address] [facility] MICROBIOLOGY (ABNORMAL) UA with Microscopic (04/01/2014 9:00 AM CDT) Component Value Ref Test Analysis Performed At Patholo gist Range Method Time Signature Color Urine Yellow [facility] Appearance Urine Clear [facility] Glucose Urine 30 (A) NEG [facility] mg/dL [facility] Bilirubin Urine Negative NEG [facility] Ketones Urine Negative NEG [facility] mg/dL [facility] Specific [place] 1.017 1.003 - [facility] Urine 1.035 UNIVERSITY [...] Phon e Number [facility] [address] [place] [address] [facility] LABS (ABNORMAL) INR (04/01/2014 8:36 AM CDT) P athologist Signature INR 1.64 (H) 0.86 - 1.14 [facility] Specimen Anatomical Collection Method Collection Time Receive d Time (Source) Location / / Volume Laterality Blood specimen 04/01/2014 8:36 AM 014 8:41 (specimen) CDT AM CDT Momo Jimenez MD LAB - BLOOD ORDERABLES Performing Organization Address City/[facility]/ZIP Code Phon e Number [facility] [address] LABS EKG 12-lead, tracing only (04/01/2014 8:28 AM CDT) [facility] gist Method Time Signature Interpretation ECG Click View RADIOLOGY Image link RESULTS to view waveform and result Specimen (Source) Anatomical Collection Method Collection Time Re ceived Time Location / / Volume Laterality 04/01/2014 8:28 AM CDT Momo Jimenez MD ECG ORDERABLES Performing Organization Address City/[facility]/ZIP Code Phon e Number RADIOLOGY RESULTS Potassium (04/01/2014 8:11 AM CDT) athologist Signature Potassium 4.1 3.4 - 5.3 [facility] mmol/L CAMPUS LABS Specimen Anatomical Collection Method Collection Time Receive d Time (Source) Location / / Volume Laterality Blood specimen 04/01/2014 8:11 AM 014 8:27 (specimen) CDT AM CDT Momo Jimenez MD LAB - BLOOD ORDERABLES Performing Organization Address City/[facility]/ZIP Code Phon e Number [facility] [address] LABS (ABNORMAL) Hemoglobin (04/01/2014 8:11 AM CDT) athologist Signature Hemoglobin 10.2 (L) 13.3 - [facility] 17.7 g/dL [place] LAB[facility] Specimen Anatomical Collection Method Collection Time Receive d Time (Source) Location / / Volume Laterality Blood specimen 04/01/2014 8:11 AM 014 8:27 (specimen) CDT AM CDT Momo Jimenez MD LAB - BLOOD ORDERABLES Performing Organization Address City/[facility]/ZIP Code Phon e Number [facility] [address] LABS (ABNORMAL) Glucose by meter (04/01/2014 8:02 AM CDT) athologist Signature Glucose 158 (H) 60 - 99 POINT OF CARE mg/dL TEST, GLUCOSE Specimen Anatomical Collection Method Collection Time Receive d Time (Source) Location / / Volume Laterality 04/01/2014 8:02 AM 4 8:05 CDT AM CDT Migel LARES - [facility] POCT Performing Organization [...] 0850 (Given - Provider: Addis Brannon APRN ENVIRONMENTAL HEALTH SAFETY ENGINEER - Comment: Asked by Fellow to give [...] Intra-procedure documented in this encounter Care Teams Handicraft Or Hobby Shop Manager Relationship Specialty Start Date End Date Momo Forbes PCP - General Family Practice 01/02/14 [facility] [address] [place] [id number] Ingrid Santana, RN Registered Nurse Transplant 02/10/12 10/01/15 documented as of this encounter
--- OUTSIDE RECORDS SUMMARY | 2022-04-14 11:11 | XMS_ITS | Encounter Summary ---
:1950 Author Organization [place] Address [facility] [place] [address] Care Team Providers Name Role Phone Ingrid Santana RN Unavailable Momo Forbes Primary Care Provider Reason for Visit Reason Comments Eval/Assessment LBA Encounter Details Date Type Department Care Team Description 02/11/2014 Infusion Therapy Specialty Infusion Finger, Migel Mac y replaced by Visit and Procedure MD Nathan transplant (Primary Center [address] [place] [address] Dx) [facility] 19 5 n [facility] 2nd Floor [address] [phone] [place], [place] (Work[place] [phone] Social History Tobacco Use [...] Diego Guthrie Thank you for choosing [facility] (PSYCHIATRIC) for your transplant cares. The following information [...] regarding the result at your appointment in PSYCHIATRIC tomorrow. We look forward in seeing you on your next appointment here at PSYCHIATRIC. Please don???t hesitate to callus at [phone] to reschedule any of your appointments or to speak with one of the PSYCHIATRIC registered nurses. It was a pleasure taking care of you today. Sincerely, Gladis Olvera, RN [facility] [address] [place] [address] documented in this encounter Progress Notes Gladis Olvera RN - 02/11/2014 8:43 AM CDT Diego Guthrie came to PSYCHIATRIC today for a lab and assess following a Kidney transplant on 02/02/14. Discharge date: 02/08/14 channel marketing coordinator: Leandro Kahn Phone number patient can be reached at: [phone] Physical Assessment: See physical assessment located under Document Flowsheets. Incision site: Dry dressing with modesta. Dressing changed. Small amt oozing, Small amt ecchymosis. Pt instructed on signs/symptoms of infection. Some swelling under incision, pt has known hematoma andwill have a renal ultrasound today at 2pm. Lines: MARGARET drain to bulb suction, serosanguinous drainage. 20 ml at PSYCHIATRIC appointment today. Gibbs: n/a Urine clarity: clear per patient report Hydration: discussed drinking 2-3 L daily Nutrition: Pt states appetite is improving Last BM: 02/10/14 evening Pain: 2 at rest, 5 with activity. Pain adequately controlled with home medications Laboratory tests: Standard labs drawn. Plan of care for today: Pt presents to PSYCHIATRIC for Labs & Assessment following Kid Txp on 02/02/14. Pt's creatinine up to 1.97 today, but ok per Dr. Leon considering the complications with transplant. Hgb 7.4 and pt c/o slight fatigue. Discussed with Dr. Leon and will hold off on a transfusion for now, but will continue to monitor hgb at PSYCHIATRIC appointments over the next 2 days. INR 2.23, EKG obtained and pt found to be in Normal Sinus Rhythm. Pt will remain on coumadin for now and will follow up with a veneer clipper near [facility]. Continue daily INRs while pt is coming to PSYCHIATRIC. Pt's MARGARET continues to drain more than [...] Discharge Plan Pt will follow up with PSYCHIATRIC tomorrow. 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 Duty verbalized understanding, all questions answered: YES Discharged [...] Results Tacrolimus level (02/11/2014 7:40 AM CDT) [facility] gist Method Time Signature Tacrolimus Last 02/10/14 [facility] Dose 2000 [facility] Tacrolimus 12.2 5.0 - [facility] Level 15.0 ug/L [facility] Comment: Tacrolimus Reference Range Kidney Transplant [...] Phon e Number [facility] [address] [place] [address] [facility] LABS (ABNORMAL) CBC with platelets differential (02/11/2014 7:40 AM CDT) [facility] gist Method Time Signature WBC 4.4 4.0 - [facility] 11.0 [facility] 10e9/L [place] [facility] RBC Count 2.39 (L) 4.4 - 5.9 [facility] 10e12/L [facility] Hemoglobin 7.4 (L) 13.3 - [facility] 17.7 g/dL [facility] Hematocrit 22.1 (L) 40.0 - [facility] 53.0 % [facility] MCV 93 78 - 100 [facility] fl [facility] MCH 31.0 26.5 - [facility] 33.0 pg [facility] MCHC 33.5 31.5 - [facility] 36.5 g/dL [facility] RDW 14.7 10.0 - [facility] 15.0 % [facility] Platelet Count 83 (L) 150 - 450 [facility] 10e9/L [facility] Diff Method Automated [facility] Method [facility] % Neutrophils 80.4 % [facility] LABS % Lymphocytes 8.2 % [facility] LABS % Monocytes 5.2 % [facility] LAB[facility] % Eosinophils 5.7 % [facility] % Basophils 0.0 % [facility] % Immature 0.5 % [facility] Granulocytes [facility] Absolute 3.5 1.6 - 8.3 [facility] [...] Phon e Number [facility] [address] LABS (ABNORMAL) Phosphorus (02/11/2014 7:40 AM CDT) P athologist Signature Phosphorus 1.9 (L) 2.5 - 4.5 [facility] mg/dL CAMPUS LABS Specimen Anatomical Collection Method Collection Time Receive d Time (Source) Location / / Volume Laterality Blood specimen 02/11/2014 7:40 AM 014 7:41 (specimen) CDT AM CDT Kaitlynn Leon MD LAB - BLOOD ORDERABLES Performing Organization Address City/State/ZIP Code Phon e Number [facility] [address] LABS Magnesium (02/11/2014 7:40 AM CDT) P athologist Signature Magnesium 1.9 1.6 - 2.3 [facility] mg/dL CAMPUS LABS Specimen Anatomical Collection Method Collection Time Receive d Time (Source) Location / / Volume Laterality Blood specimen 02/11/2014 7:40 AM 014 7:41 (specimen) CDT AM CDT Kaitlynn Leon MD LAB - BLOOD ORDERABLES Performing Organization Address City/State/ZIP Code Phon e Number [facility] [address] LABS (ABNORMAL) Basic metabolic panel (02/11/2014 7:40 AM CDT) [facility] Method Time Signature Sodium 142 133 - 144 [facility] mmol/L [facility] Potassium 5.4 (H) 3.4 - 5.3 [facility] mmol/L [facility] Chloride 113 (H) 94 - 109 [facility] mmol/L [facility] Carbon Dioxide 22 20 - 32 [facility] mmol/L [facility] Anion Gap 8 6 - 17 [facility] mmol/L [facility] Glucose 155 (H) 60 - 99 [facility] mg/dL [facility] Urea Nitrogen 31 (H) 7 - 30 [facility] mg/dL [facility] Creatinine 1.97 (H) 0.66 - [facility] 1.25 mg/dL [facility] GFR Estimate 35 (L) >60 [facility] mL/min/1.7 [place] m2 [place] LAB[facility] GFR Estimate If 42 (L) >60 [facility] Black mL/min/1.7 [place] m2 [place] LABS Calcium 9.1 8.5 - 10.4 [facility] mg/dL [facility] Specimen Anatomical Collection Method Collection Time Receive d Time (Source) Location / / Volume Laterality Blood specimen 02/11/2014 7:40 AM 014 7:41 (specimen) CDT AM CDT Kaitlynn Leon MD LAB - BLOOD ORDERABLES Performing Organization Address City/State/ZIP Code Phon e Number [address] [address] [facility] LABS documented in this encounter Visit Diagnoses Diagnosis Kidney replaced by transplant - Primary documented in this encounter Care Teams Global Marketing Coordinator Relationship Specialty Start Date End Date Momo Forbes PCP - General Family Practice 01/02/14 [facility] [address] [place] [address] Ingrid Santana, RN Registered Nurse Transplant 02/10/12 10/01/15 documented as of this encounter
--- OUTSIDE RECORDS SUMMARY | 2022-04-14 11:11 | XMS_ITS | Encounter Summary ---
:1950 Author Organization [place] Address [address] [place] [address]. [place] [address] Care Team Providers Name Role Phone Ingrid Santana RN Unavailable Momo Forbes Primary Care Provider Reason for Visit Reason Onset Date Comments Refill Request 02/12/2014 clotrimazole Encounter Details Date Type Department Care Team Description 02/12/2014 Refill Nephrology Kaitlynn Leon MD Refill Request 2nd Floor, Clinic 2A [facility] (clotrimazole) [address] [phone] Social History Tobacco Use Types Packs/Day Years [...] Miscellaneous Notes Telephone Encounter - Lianne Braswell, [facility] - 02/12/2014 8:50 AM CDT Last Fill Date: 02/08/14 Last Fill Quantity: 70 Last Office Visit: 02/11/14 Proactive request, and also requesting a new quantity for a one month supply. Thanks! Lianne Braswell, PharmD [facility] Transplant Program [phone] documented in this encounter Plan of Treatment Not on filedocumented as of this encounter Visit Diagnoses Diagnosis S/P kidney transplant Kidney replaced by transplant documented in this encounter Care Teams Pit Hoist Operator Relationship Specialty Start Date End Date Momo Forbes PCP - General Family Practice 01/02/14 [facility] [address] [place] [address] Ingrid Santana, RN Registered Nurse Transplant 02/10/12 10/01/15 documented as of this encounter
--- OUTSIDE RECORDS SUMMARY | 2022-04-14 11:11 | XMS_ITS | Encounter Summary ---
:1950 Author Organization [place] Address [address] [place] [address]. [place] [address] Care Team Providers Name Role Phone Ingrid Santana RN Unavailable Momo Forbes Primary Care Provider Reason for Visit Reason Onset Date Comments Refill Request 02/11/2014 Encounter Details Date Type Department Care Team Description 02/11/2014 Refill Nephrology Isa Ly RN Refill Request 2nd Floor, Clinic 2A [facility] [address] [place] [address] [phone] Social History Tobacco Use Types Packs/Day [...] transplant documented in this encounter Care Teams Wound Care Rn Relationship Specialty Start Date End Date Momo Forbes PCP - General Family Practice 01/02/14 [facility] [address] [place], [place] [phone] Ingrid Santana, RN Registered Nurse Transplant 02/10/12 10/01/15 documented as of this encounter
--- OUTSIDE RECORDS SUMMARY | 2022-04-14 11:11 | XMS_ITS | Encounter Summary ---
:1950 Author Organization [place] Address [address] [place] [address]. [place] [address] Care Team Providers Name Role Phone Ingrid Santana RN Unavailable Momo Forbes Primary Care Provider Reason for Visit Reason Comments Surgical Followup Post op for kidney transplan t POD 16 Encounter Details Date Type Department Care Team Description 02/18/2014 Office Visit Transplant Surgery Migel Merchant S/P jamari cutler transplant (Primary Dx); Clinic MD Nathan Postop check; 2nd Floor, Clinic 2A [address] [place] Immunosuppression (H); [facility] 1 95 Atrial fibrillation (H) Building [address] [place] [id number] [place] [address] [place], [place] (Work) [phone] Social History Tobacco Use Types Packs/Day Years [...] appearing no apparent distress Drain in place. [place] in place. Hematology: Recent Labs Lab Test [...] Stent: out in ~ 4 weeks 4. [place]. Follow up next Tuesday for staple removal [...] fibrillation documented in this encounter Care Teams Cardiac Nurse Practitioner Relationship Specialty Start Date End Date Momo Forbes PCP - General Family Practice 01/02/14 [facility] [address] [place] [address] Ingrid Santana, RN Registered Nurse Transplant 02/10/12 10/01/15 documented as of this encounter
--- OUTSIDE RECORDS SUMMARY | 2022-04-14 11:11 | XMS_ITS | Encounter Summary ---
:1950 Author Organization [place] Address [facility] [place] [address] Care Team Providers Name Role Phone Ingrid Santana RN Unavailable Momo Forbes Primary Care Provider Reason for Visit Reason Onset Date Comments Previsit 02/15/[address] Merchant 02/18 Encounter Details Date Type Department Care Team Description 02/15/2014 Telephone Transplant Surgery Radha Acosta LPN Prev isit (Appt with Dr Anthony Merchant 02/18) 2nd Floor, Clinic [address] [phone] Social History Tobacco Use [...] on filedocumented in this encounter Care Teams Shafting Worker Relationship Specialty Start Date End Date Momo Forbes PCP - General Family Practice 01/02/14 [place] [phone] Ingrid Santana, RN Registered Nurse Transplant 02/10/12 10/01/15 documented as of this encounter
--- OUTSIDE RECORDS SUMMARY | 2022-04-14 11:11 | XMS_ITS | Encounter Summary ---
:1950 Author Organization [place] Address [facility] [address] Care Team Providers Name Role Phone Ingrid Santana RN Unavailable Momo Raines Primary Care Provider Reason for Visit Reason Comments Consult consult for afib Encounter Details Date Type Department Care Team Description 02/18/2014 Office Visit [facility] (H[facility] (Primary Dx) Heart MD Tommy Wilburn [facility] Building [place] 4th Floor, Clinic 4B [address] [phone] [place], [place] (Work[place] [phone] Social History Tobacco Use Types Packs/Day Years [...] Years of Education: 14 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
--- OUTSIDE RECORDS SUMMARY | 2022-04-14 11:11 | XMS_ITS | Encounter Summary ---
:1950 Author Organization [place] Address [facility] [place] [address] Care Team Providers Name Role Phone Ingrid Santana RN Unavailable Momo Forbes Primary Care Provider Encounter Details Date Type Department Care Team Description 02/11/2014 Radiant Appointment [facility] 1st Floor, Clinic 1D [place], [place] [address] Social History Tobacco Use Types Packs/Day Years [...] filedocumented in this encounter Care Teams Insurance Claims Representative Relationship Specialty Start Date End Date Momo Forbes PCP - General Family Practice 01/02/14 [facility] [address] [place] [address] Ingrid Santana RN Registered Nurse Transplant 02/10/12 10/01/15 documented as of this encounter
--- OUTSIDE RECORDS SUMMARY | 2022-04-14 11:11 | XMS_ITS | Encounter Summary ---
:1950 Author Organization [place] Address [facility]0 [facility] [place] [address] Care Team Providers Name Role Phone Ingrid Santana RN Unavailable Momo Forbes Primary Care Provider Reason for Referral CV Cardio consult - Closed Specialty Diagnoses / Procedures Referred By Contact Refer red To Contact Diagnoses Atrial fibrillation (H) Kaitlynn Leon MD [facility] [place] [address] [place] [address] Fax: Referral ID Status Reason Start Date Expiration Date Visits Requ ested Visits Authorized [id number] Closed 02/12/2014 08/11/2014 1 1 Reason for Visit Reason Comments RECHECK Encounter Details Date Type Department Care Team Description 02/12/2014 Office Visit Specialty Infusion Kaitlynn Leon, S/P liborio ey transplant (Primary Dx); and Procedure Center Atrial fibrillation (H); Arpita [facility] Hypopho sphatemia; Building [place] Nausea; 2nd Floor [address] Immunosuppression (H) [address] [facility] [address] [place], [place] [phone] [address] (Work) [phone] Social History Tobacco Use Types Packs/Day Years [...] Dear Diego Guthrie Thank you for choosing [facility] ([facility]) for your transplant cares. The following information is a summary of our appointment as well as important reminders. Please make sure your phone is available today because I will call to update you with your anti-rejection drug levels and possibly make changes to your anti- rejection dosages. Additional information: -Decrease your coumadin dose to 5 mg every evening -Please return to [facility] on for Labs & assessment -Call us or Leandro Kahn with any questions. -Your Home Care Nurse should begin visits on TuesdayFebruary 14. If you do not hear from them by Tuesday morning, try to reach them at [phone]. We look forward in seeing you on your next appointment here at [facility]. Please don???t hesitate to callus at [phone] to reschedule any of your appointments or to speak with one of the [facility] registered nurses. It was a pleasure taking care of you today. Sincerely, Gladis Olvera RN [facility] - Clinic [address]B [address] [place] [address]. 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
--- OUTSIDE RECORDS SUMMARY | 2022-04-14 11:11 | XMS_ITS | Encounter Summary ---
:1950 Author Organization [place] Address [facility] [place] [address] Care Team Providers Name Role Phone Ingrid Santana RN Unavailable Momo Forbes Primary Care Provider Reason for Visit Reason Comments Eval/Assessment LBA Encounter Details Date Type Department Care Team Description 02/11/2014 Office Visit Specialty Infusion Kaitlynn Leon, Complica tion of transplanted kidney (Primary Dx); and Procedure Center Anemia; [place] [facility] HTN (hy pertension); [facility] Immunosuppression (H); 2nd Floor [address] Hypophosphatemia 6 [facility] [address] [place], [place] [phone] [address] (Work) [phone] Social History Tobacco Use Types Packs/Day Years [...] Years of Education: 14 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 Discharge: 02/08/2014 Using Medcard: Yes Med review: Went over all meds and dosing with patient and Tete. Went over Prograf and Cellcept side effects. Medication questions/concerns: Patient requested that we transfer 4 rx's (to profile) from local pharmacy to us here. 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 Using medbox: Yes Viewed DVD: Didn't bring up Pain: #2-3, feels good, rarely using Oxycodone Other Concerns: none No further questions for this pharmacist. Yi Londono [facility] [phone] documented in this encounter Plan of Treatment [...] Signature INR 2.28 (H) 0.86 - 1.14 [facility] LABS Specimen Anatomical Collection Method Collection Time Receive d Time (Source) Location / / Volume Laterality 02/11/2014 9:30 AM 4 9:41 CDT AM CDT Kaitlynn Leon MD LAB - BLOOD ORDERABLES Performing Organization Address City/State/ZIP Code Phon e Number [facility] [address] [place], [place] [phone] [place] [address] LABS documented in this encounter Visit Diagnoses Diagnosis Complication of transplanted kidney - Pr imary Complications of transplanted kidney Anemia Anemia, unspecified HTN (hypertension) Unspecified essential hypertension Immunosuppression (H) Unspecified disorder of immune mechanism Hypophosphatemia Disorders of phosphorus metabolism documented in this encounter Care Teams Wine Master Relationship Specialty Start Date End Date Momo Forbes PCP - General Family Practice 01/02/14 [facility] [address] [place] [address] Ingrid Santana, RN Registered Nurse Transplant 02/10/12 10/01/15 documented as of this encounter
--- OUTSIDE RECORDS SUMMARY | 2022-04-14 11:11 | XMS_ITS | Encounter Summary ---
:1950 Author Organization [place] Address [facility] [place] [address] Care Team Providers Name Role Phone Ingrid Santana RN Unavailable Momo Forbes Primary Care Provider Reason for Visit Reason Comments Eval/Assessment LBA Encounter Details Date Type Department Care Team Description 02/09/2014 Infusion Therapy Specialty Infusion Finger, Migel Mac y replaced by transplant (Primary Dx); Visit and Procedure MD [facility] [address] [place] [address] 19 5 [facility] 2nd Floor [address] [phone] [place], [place] (Work) [phone] Social History Tobacco Use [...] Dear Diego Guthrie Thank you for choosing [facility] ([facility]) for your transplant cares. The [...] Bring Humulog Insulin Pen to your future [facility] appointments. 5) Return to [facility] tomorrow at 07:30 a.m We look forward in seeing you on your next appointment here at [facility]. Please don???t hesitate to callus at [phone] to reschedule any of your appointments or to speak with one of the [facility] registered nurses. It was a pleasure taking care of you today. Sincerely, MARC HERNANDEZ RN [facility] [address] [place] [address]. [place] [address] Coumadin Information: Keep Your Diet Steady Keep [...] 7:31 AM CDT Diego Guthrie came to [facility] today for a lab and assess following a Kidney transplant on 02/02/14. Discharge date: 02/08/14 fruit coordinator: Leandro Kahn Phone number patient can be reached at: [phone] Physical Assessment: See physical assessment located under [...] s/s insulin this morning/nor brought insulin to [facility] appt. I reviewed w/pt the need to monitor BG's QID and to [facility]. Last BM: yesterday, loose, [...] 1L of NS today, d/c pt from [facility] post 1L NS, return to [facility] tomorrow for LBA, No change [...] and Phone numbers to call with concenrs (fruit coordinator, [address] and [facility]) Patient verbalized understanding and all questions answered. Drug level: Prograf level today reviewed with Dr Hernandes who gave orders to no change in dose. INR of 1.59 also reviewed w/Dr Hernandes who gave orders to increase Coumadin to 7.5mg QD. Patient was updated with this information and verbalized understanding. Discharge Plan Pt will follow up with [facility] tomorrow at 0730. Bring Humulog Insulin Pen to [facility] today (pt did not bring to today's appt). 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/Associate Programmer verbalized understanding, all questions answered: YES Discharged [...] Signature INR 1.59 (H) 0.86 - 1.14 [facility] LABS Specimen Anatomical Collection Method Collection Time Receive d Time (Source) Location / / Volume Laterality Blood specimen 02/09/2014 8:30 AM 014 (specimen) CDT 11:07 AM CDT Migel Merchant MD LAB - BLOOD ORDERABLES Performing Organization Address City/State/ZIP Code Phon e Number [facility] [address] [place], [place] [phone] [place] [address] LABS Tacrolimus level (02/09/2014 7:40 AM CDT) [employer] gist Method Time Signature Tacrolimus Not Provided [facility] Last Dose [facility] LABS Tacrolimus 8.0 5.0 - [facility] Level 15.0 ug/L [facility] LABS Comment: Tacrolimus Reference Range [...] Phon e Number [facility] [address] [place], [place] [id number] [place] [address] [facility] (ABNORMAL) CBC with platelets differential (02/09/2014 7:40 AM CDT) Patholo gist Method Time Signature WBC 5.8 4.0 - [facility] 11.0 [facility] 10e9/L [place] LABS RBC Count 2.66 (L) 4.4 - 5.9 [facility] 10e12/L [facility] LABS Hemoglobin 8.2 (L) 13.3 - [facility] 17.7 g/dL [facility] LABS Hematocrit 24.4 (L) 40.0 - [facility] 53.0 % [facility] LABS MCV 92 78 - 100 [facility] fl [facility] LABS MCH 30.8 26.5 - [facility] 33.0 pg [facility] LABS MCHC 33.6 31.5 - [facility] 36.5 g/dL [facility] LABS RDW 14.6 10.0 - [facility] 15.0 % [facility] LABS Platelet Count 78 (L) 150 - 450 [facility] 10e9/L [facility] LABS Diff Method Automated [facility] Method [facility] LABS % Neutrophils 84.8 % [facility] LABS % Lymphocytes 5.2 % [facility] LABS % Monocytes 6.9 % [facility] LABS % Eosinophils 2.9 % [facility] % Basophils 0.0 % [facility] LABS % Immature 0.2 % [facility] Granulocytes [facility] LABS Absolute 4.9 1.6 - 8.3 [facility] Neutrophil 10e9/L [facility] LABS Absolute 0.3 (L) 0.8 - 5.3 [facility] Lymphocytes 10e9/L [facility] LABS Absolute 0.4 0.0 - 1.3 [facility] Monocytes 10e9/L [facility] LABS Absolute 0.2 0.0 - 0.7 [facility] Eosinophils 10e9/L [facility] LABS Absolute 0.0 0.0 - 0.2 [facility] Basophils 10e9/L [facility] LABS Abs Immature 0.0 0 - 0.4 [facility] Granulocytes 10e9/L [facility] LABS Specimen Anatomical Collection Method Collection Time Receive d Time (Source) Location / / Volume Laterality Blood specimen 02/09/2014 7:40 AM 014 7:49 (specimen) CDT AM CDT Migel Merchant MD LAB - BLOOD ORDERABLES Performing Organization Address City/State/ZIP Code Phon e Number [facility] [address] [place], [place] [phone] [place] [address] LABS (ABNORMAL) Phosphorus (02/09/2014 7:40 AM CDT) athologist Signature Phosphorus 2.0 (L) 2.5 - 4.5 [facility] mg/dL CAMPUS LABS Specimen Anatomical Collection Method Collection Time Receive d Time (Source) Location / / Volume Laterality Blood specimen 02/09/2014 7:40 AM 014 7:49 (specimen) CDT AM CDT Migel Merchant MD LAB - BLOOD ORDERABLES Performing Organization Address City/[facility] Phon e Number [facility] [address] LABS Magnesium (02/09/2014 7:40 AM CDT) athologist Signature Magnesium 1.9 1.6 - 2.3 [facility] mg/dL [place] LABS Specimen Anatomical Collection Method Collection Time Receive d Time (Source) Location / / Volume Laterality Blood specimen 02/09/2014 7:40 AM 014 7:49 (specimen) CDT AM CDT Migel Merchant MD LAB - BLOOD ORDERABLES Performing Organization Address City/[facility] Code Phon e Number [facility] [address] LABS (ABNORMAL) Basic metabolic panel (02/09/2014 7:40 AM CDT) [employer] gist Method Time Signature Sodium 145 (H) 133 - 144 [facility] mmol/L [facility] LABS Potassium 4.5 3.4 - 5.3 [facility] mmol/L [facility] LABS Chloride 110 (H) 94 - 109 [facility] mmol/L [facility] LABS Carbon Dioxide 24 20 - 32 [facility] mmol/L [facility] LABS Anion Gap 10 6 - 17 [facility] mmol/L [facility] LABS Glucose 137 (H) 60 - 99 [facility] mg/dL [facility] LABS Urea Nitrogen 48 (H) 7 - 30 [facility] mg/dL [facility] LABS Creatinine 2.02 (H) 0.66 - [facility] 1.25 mg/dL [facility] LABS GFR Estimate 34 (L) >60 [facility] mL/min/1.7 [place] m2 CAMPUS LABS GFR Estimate If 41 (L) >60 [facility] Black mL/min/1.7 [place] [address] CAMPUS LABS Calcium 9.2 8.5 - 10.4 [facility] mg/dL [facility] LABS Specimen Anatomical Collection Method Collection Time Receive d Time (Source) Location / / Volume Laterality Blood specimen 02/09/2014 7:40 AM 014 7:49 (specimen) CDT AM CDT Migel Merchant MD LAB - BLOOD ORDERABLES Performing Organization Address City/State/ZIP Code Phon e Number [address] [address] [facility] LABS documented in this encounter Visit [...] dose documented in this encounter Care Teams Tray Checker Relationship Specialty Start Date End Date Momo Forbes PCP - General Family Practice 01/02/14 [facility] [address] [place] [address] Ingrid Santana, RN Registered Nurse Transplant 02/10/12 10/01/15 documented as of this encounter
--- OUTSIDE RECORDS SUMMARY | 2022-04-14 11:11 | XMS_ITS | Encounter Summary ---
:1950 Author Organization [place] Address [address] [place] [address]. [place] [address] Care Team Providers Name Role Phone Ingrid Santana RN Unavailable Momo Forbes Primary Care Provider Reason for Visit Reason Onset Date Comments Refill Request 02/15/2014 Encounter Details Date Type Department Care Team Description 02/15/2014 Refill Nephrology Shiva Kahn RN Refill Request 2nd Floor, Clinic 2A [facility] Sanders [place] [address] [id number] [place] [address] [place] [phone] Social History Tobacco Use Types Packs/Day [...] on filedocumented in this encounter Care Teams Food And Beverage Cashier Relationship Specialty Start Date End Date Momo Forbes PCP - General Family Practice 01/02/14 [facility] [address] [place], [place] [phone] Ingrid Santana, RN Registered Nurse Transplant 02/10/12 10/01/15 documented as of this encounter
--- OUTSIDE RECORDS SUMMARY | 2022-04-14 11:11 | XMS_ITS | Encounter Summary ---
:1950 Author Organization [place] Address [address] [place] [address]. [place] [address] Care Team Providers Name Role Phone Ingrid Santana RN Unavailable Momo Forbes Primary Care Provider Encounter Details Date Type Department Care Team Description 02/11/2014 Orders Only Nephrology Josseline Nice, Kidney replaced by 2nd Floor, Clinic 2A [employer] transplant (Primary Sanders Wangfelisa Dx) [address] [phone] Social History Tobacco Use Types Packs/Day Years [...] Primary documented in this encounter Care Teams Cigar Wrapper Relationship Specialty Start Date End Date Momo Forbes PCP - General Family Practice 01/02/14 [facility] [address] [place] [address] Ingrid Santana RN Registered Nurse Transplant 02/10/12 10/01/15 documented as of this encounter
--- OUTSIDE RECORDS SUMMARY | 2022-04-14 11:11 | XMS_ITS | Encounter Summary ---
:1950 Author Organization [place] Address [facility]0 [facility] [place] [address] Care Team Providers Name Role Phone Ingrid Santana RN Unavailable Momo Forbes Primary Care Provider Reason for Visit Reason Comments Eval/Assessment LBA Encounter Details Date Type Department Care Team Description 02/12/2014 Infusion Therapy Specialty Infusion Finger, Migel Mac y replaced by Visit and Procedure MD Nathan transplant (Primary Center [address] [place] [address] Dx) [facility] 19 5 n [facility] 2nd Floor [address] [phone] [place], [place] (Work) [phone] Social History Tobacco Use [...] Dear Diego Guthrie Thank you for choosing [facility] ([facility]) for your transplant cares. The following information is a summary of our appointment as well as important reminders. Additional information: We will see you on for labs & assessment. We look forward in seeing you on your next appointment here at [facility]. Please don???t hesitate to callus at [phone] to reschedule any of your appointments or to speak with one of the [facility] registered nurses. It was a pleasure taking care of you today. Sincerely, Gladis Olvera, BOGDAN [facility] [address] [place] [address]. [place] [id number] January 2014Tuesday 1 2 3 4 5 6 7 8 9 10 11 12 13 14 Admission 12:55 PM Migel Merchant MD Unit 7A [facility] [place] (Discharge: 02/08/2014) XR CHEST 2 VIEWS 1:55 PM (10 min.) [email or web address] [facility], Radiology TRANSPLANT KIDNEY RECIPIENT DONOR 4:00 PM Migel Merchant MD UU OR XR CHEST PORT 2 VIEWS 11:10 PM (15 min.) Uuxrph1 [facility], Radiology 15 US RENAL TRANSPLANT 7:50 AM (50 min.) Uuus2 [facility], Ultrasound 16 IP EVALUATION 6:00 AM (60 min.) Angela Wilder, PT [facility], Physical Therapy UU TRANSPLANT MEDICATIONS 11:00 AM (120 min.) Josseline Almendarez RN [facility] Patient Learning [place] UU TRANSPLANT FOLLOW-UP CARE 1:00 PM (120 min.) Josseline Almendarez RN [facility], Patient Learning [place] ECH LIMITED 3:35 PM (60 min.) [email or web address] [facility], Echocardiography 17 IP TREATMENT 5:30 AM (30 min.) Roderick Lawson, PT [facility], Physical Therapy 18 IP TREATMENT 5:30 AM (30 min.) Yesenia Rodirguez, PT [facility], Physical Therapy 19 IP TREATMENT 5:30 AM (30 min.) Reina Kenny, PT [facility], Physical Therapy US RENAL 11:15 AM (60 min.) Uuus2 [facility], Ultrasound 20 IP TREATMENT 5:30 AM (30 min.) Reina Kenny, PT [facility], Physical Therapy UU TRANSPLANT MEDICATIONS 11:00 AM (120 min.) Em Mohan RN [facility] Patient [facility] [place] 21 [facility] NEW TRANSPLANT 7:00 AM (360 min.) [facility] Sipc Chair 9 Specialty Infusion and Procedure Center 22 [facility] NEW TRANSPLANT 7:00 AM (360 min.) [facility] Sipc Chair 11 Specialty Infusion and Procedure Center 23 [facility] NEW TRANSPLANT 7:00 AM (360 min.) [facility] Sip Chair 12 Specialty Infusion and Procedure Center [facility] KIDNEY TX DISCHARGE 9:00 AM (30 min.) Kaitlynn Leon MD [facility]fusion [facility] Procedure Center US RENAL TRANSPLANT 2:00 PM (60 min.) [address] 24 [facility] NEW TRANSPLANT 7:00 AM (360 min.) [facility] Sipc Bed 14 Specialty Infusion and Procedure Center [facility] SIPC RETURN 9:00 AM (30 min.) Kaitlynn Leon MD [facility] 25 26 [facility] SIPC PROCEDURE 7:00 AM (60 min.) [facility] Sipc Chair 9 Specialty Infusion and Procedure Center [facility] SIPC RETURN 8:00 AM (30 min.) Kaitlynn Leon MD Special[facility] Infusion [facility] Procedure Center 27 28 29 30 [facility] NEW 9:00 AM (30 min.) [facility] Cvc Consult [facility] Physicians Heart [facility] KIDNEY POST OP 1:45 PM (15 min.) [...] 4:27 PM CDT Diego Guthrie came to [facility] today for a lab and assess following a Kidney transplant on 02/02/14. Discharge date: 02/08/14 leave coordinator: Leandro Kahn Phone number patient can be reached at: [phone] Physical Assessment: See physical assessment located under Document Flowsheets. Incision site: with modesta & slight ecchymosis. Dry dressing changed. Lines: MARGARET drain to bulb suction is draining sero sanguinous fluid. Continues to drain more than 30 ml/day. Pt will have Tuesday off from [facility] and will return for LBA. Gibbs: N/A [...] of care for today: Pt presented to [facility] for labs and assessment. Labs drawn, reviewed with Dr. Leon. Oral phosphorus tablets ordered. Coumadin dose decreased to 5 mg every evening. Pt will have Tuesday off, return and will start with [facility] Nursing on TuesdayFebruary 15. Pt's MARGARET remains [...] follow up with [facility] on 02/14 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/Restorative Coordinator verbalized understanding, all questions answered: YES [...] Signature INR 2.64 (H) 0.86 - 1.14 [facility] LABS Specimen Anatomical Collection Method Collection Time Receive d Time (Source) Location / / Volume Laterality Blood specimen 02/12/2014 7:41 AM 014 7:43 (specimen) CDT AM CDT Kaitlynn Leon MD LAB - BLOOD ORDERABLES Performing Organization Address City/State/ZIP Code Phon e Number [facility] [address] [place] [address] [facility] LABS Tacrolimus level (02/12/2014 7:41 AM CDT) [facility] gist Method Time Signature Tacrolimus Last 02/11/14 [facility] Dose 1900 [facility] LABS Tacrolimus 8.4 5.0 - [facility] Level 15.0 ug/L [facility] LABS Comment: Tacrolimus Reference Range [...] Organization Address City/State/ZIP Code Phon e Number [address] [address] [place] [facility] (ABNORM[facility]) CBC with platelets differential (02/12/2014 7:41 AM CDT) [facility] gist Method Time Signature WBC 5.0 4.0 - [facility] 11.0 [facility] 10e9/L [facility]AMP[facility] LABS RBC Count 2.41 (L) 4.4 - 5.9 [facility] 10e12/L [facility] LABS Hemoglobin 7.4 (L) 13.3 - [facility] 17.7 g/dL [facility] LABS Hematocrit 22.3 (L) 40.0 - [facility] 53.0 % [facility] LABS MCV 93 78 - 100 [facility] fl [facility] LABS MCH 30.7 26.5 - [facility] 33.0 pg [facility] LABS MCHC 33.2 31.5 - [facility] 36.5 g/dL [facility] LABS RDW 14.5 10.0 - [facility] 15.0 % [facility] LABS Platelet Count 95 (L) 150 - 450 [facility] 10e9/L [facility] LABS Diff Method Automated [facility] Method [facility] LABS % Neutrophils 85.2 % [facility] LABS % Lymphocytes 5.6 % [facility] LABS % Monocytes 4.6 % [facility] LABS % Eosinophils 4.2 % [facility] LABS % Basophils 0.2 % [facility] LABS % Immature 0.2 % [facility] Granulocytes [facility] LABS Absolute 4.3 1.6 - 8.3 [facility] Neutrophil 10e9/L [facility] LABS Absolute 0.3 (L) 0.8 - 5.3 [facility] Lymphocytes 10e9/L [facility] LABS Absolute 0.2 0.0 - 1.3 [facility] Monocytes 10e9/L [facility] LABS Absolute 0.2 0.0 - 0.7 [facility] Eosinophils 10e9/L [facility] LABS Absolute 0.0 0.0 - 0.2 [facility] Basophils 10e9/L [facility] LABS Abs Immature 0.0 0 - 0.4 [facility] Granulocytes 10e9/L [facility] LABS Specimen Anatomical Collection Method Collection Time Receive d Time (Source) Location / / Volume Laterality Blood specimen 02/12/2014 7:41 AM 014 7:43 (specimen) CDT AM CDT Naim S Edward MD LAB - BLOOD ORDERABLES Performing Organization Address City/State/ZIP Code Phon e Number [facility] [address] LABS (ABNORMAL) Phosphorus (02/12/2014 7:41 AM CDT) athologist Signature Phosphorus 1.7 (L) 2.5 - 4.5 [facility] mg/dL [place] LABS Specimen Anatomical Collection Method Collection Time Receive d Time (Source) Location / / Volume Laterality Blood specimen 02/12/2014 7:41 AM 014 7:43 (specimen) CDT AM CDT Kaitlynn Leon MD LAB - BLOOD ORDERABLES Performing Organization Address City/State/ZIP Code Phon e Number [facility] [address] [place], [place] [phone] [place] [address] LABS Magnesium (02/12/2014 7:41 AM CDT) athologist Signature Magnesium 1.8 1.6 - 2.3 [facility] mg/dL [place] LABS Specimen Anatomical Collection Method Collection Time Receive d Time (Source) Location / / Volume Laterality Blood specimen 02/12/2014 7:41 AM 014 7:43 (specimen) CDT AM CDT Kaitlynn Leon MD LAB - BLOOD ORDERABLES Performing Organization Address City/State/ZIP Code Phon e Number [facility] [address] [place], [place] [id number] [place] [address] LABS (ABNORMAL) Basic metabolic panel (02/12/2014 7:41 AM CDT) [facility] gist Method Time Signature Sodium 142 133 - 144 [facility] mmol/L [facility] LABS Potassium 4.9 3.4 - 5.3 [facility] mmol/L [facility] LABS Chloride 113 (H) 94 - 109 [facility] mmol/L [facility] LABS Carbon Dioxide 21 20 - 32 [facility] mmol/L [facility] LABS Anion Gap 9 6 - 17 [facility] mmol/L [facility] LABS Glucose 127 (H) 60 - 99 [facility] mg/dL [facility] LABS Urea Nitrogen 24 7 - 30 [facility] mg/dL [facility] LABS Creatinine 1.92 (H) 0.66 - [facility] 1.25 mg/dL [facility] LAB[facility] GFR Estimate 36 (L) >60 [facility] mL/min/1.7 [place] m2 CAMPUS LABS GFR Estimate If 43 (L) >60 [facility] Black mL/min/1.7 [place] m2 CAMPUS LABS Calcium 8.9 8.5 - 10.4 [facility] mg/dL [facility] LABS Specimen Anatomical Collection Method Collection Time Receive d Time (Source) Location / / Volume Laterality Blood specimen 02/12/2014 7:41 AM 014 7:43 (specimen) CDT AM CDT Kaitlynn Leon MD LAB - BLOOD ORDERABLES Performing Organization Address City/State/ZIP Code Phon e Number [facility] [address] [place] [address] [facility] LABS documented in this encounter [...] after. documented in this encounter Care Teams Floor Cashier Relationship Specialty Start Date End Date Momo Forbes PCP - General Family Practice 01/02/14 [facility] [address] [place] [address] Ingrid Santana, RN Registered Nurse Transplant 02/10/12 10/01/15 documented as of this encounter
--- OUTSIDE RECORDS SUMMARY | 2022-04-14 11:11 | XMS_ITS | Encounter Summary ---
:1950 Author Organization [place] Address formerly [facility]0 [facility] [place] [address] Care Team Providers Name Role Phone Ingrid Santana RN Unavailable Momo Forbes Primary Care Provider Reason for Visit Reason Comments Eval/Assessment LABS, ASSESSMENT, EDUCATION AND DRESSING CHANGE. Encounter Details Date Type Department Care Team Description 02/14/2014 Infusion Therapy Specialty Infusion Kaitlynn Leon MD Kidney replaced by transplant (Primary D x); Visit and Procedure Center [facility] S/P kidney transplant [facility] [address] [address] [place], [place] (Work) [address] Social History Tobacco Use [...] CDT Diego Guthrie came to [facility] today for a lab and assess following a Kidney transplant on 02/02/14. Discharge date: 02/08/14 container coordinator: Leanrdo Kahn Phone number patient can be reached at: [phone] Physical Assessment: See physical assessment located under [...] Tuesday. 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 verbalized understanding, all questions answered: YES Discharged [...] Signature INR 2.29 (H) 0.86 - 1.14 [facility] LABS Specimen Anatomical Collection Method Collection Time Receive d Time (Source) Location / / Volume Laterality Blood specimen 02/14/2014 7:51 AM 014 7:58 (specimen) CDT AM CDT Kaitlynn Leon MD LAB - BLOOD ORDERABLES Performing Organization Address City/State/ZIP Code Phon e Number [facility] [address] [place], [place] [id number] [place] [address] LABS Tacrolimus level (02/14/2014 7:51 AM CDT) [facility] gist Method Time Signature Tacrolimus Last 1914 [facility] Dose 02/13/14 [facility] LABS Tacrolimus 7.5 5.0 - [facility] Level 15.0 ug/L [facility] LABS Comment: Tacrolimus Reference Range Kidney [...] Phon e Number [facility] [address] [place], [place] [id number] [place] [address] LABS (ABNORMAL) CBC with platelets differential (02/14/2014 7:51 AM CDT) [facility] gist Method Time Signature WBC 6.9 4.0 - [facility] 11.0 [place] 10e9/L [place] LABS RBC Count 2.55 (L) 4.4 - 5.9 [facility] 10e12/L [facility] LABS Hemoglobin 7.8 (L) 13.3 - [facility] 17.7 g/dL [facility] LABS Hematocrit 23.4 (L) 40.0 - [facility] 53.0 % [facility] LABS MCV 92 78 - 100 [facility] fl [facility] LABS MCH 30.6 26.5 - [facility] 33.0 pg [facility] LABS MCHC 33.3 31.5 - [facility] 36.5 g/dL [facility] LABS RDW 14.9 10.0 - [facility] 15.0 % [facility] LABS Platelet Count 122 (L) 150 - 450 [facility] 10e9/L [facility] LABS Diff Method Automated [facility] Method [facility] LABS % Neutrophils 88.7 % [facility] LABS % Lymphocytes 2.6 % [facility] LABS % Monocytes 4.5 % [facility] LABS % Eosinophils 3.8 % [facility] % Basophils 0.1 % [facility] % Immature 0.3 % [facility] Granulocytes [facility] LABS Absolute 6.1 1.6 - 8.3 [facility] Neutrophil 10e9/L [facility] LABS Absolute 0.2 (L) 0.8 - 5.3 [facility] Lymphocytes 10e9/L [facility] LABS Absolute 0.3 0.0 - 1.3 [facility] Monocytes 10e9/L [facility] LABS Absolute 0.3 0.0 - 0.7 [facility] Eosinophils 10e9/L [facility] LABS Absolute 0.0 0.0 - 0.2 [facility] Basophils 10e9/L [facility] LABS Abs Immature 0.0 0 - 0.4 [facility] Granulocytes 10e9/L [facility] LABS Specimen Anatomical Collection Method Collection Time Receive d Time (Source) Location / / Volume Laterality Blood specimen 02/14/2014 7:51 AM 014 7:53 (specimen) CDT AM CDT Joseph Quintana MD LAB - BLOOD ORDERABLES Performing Organization Address City/[facility] Code Phon e Number [address] LABS (ABNORMAL) Phosphorus (02/14/2014 7:51 AM CDT) P athologist Signature Phosphorus 2.4 (L) 2.5 - 4.5 [facility] mg/dL [place] LABS Specimen Anatomical Collection Method Collection Time Receive d Time (Source) Location / / Volume Laterality Blood specimen 02/14/2014 7:51 AM 014 7:53 (specimen) CDT AM CDT Joseph Quintana MD LAB - BLOOD ORDERABLES Performing Organization Address City/[facility]/ZIP Code Phon e Number [address] [facility] LABS Magnesium (02/14/2014 7:51 AM CDT) P athologist Signature Magnesium 1.6 1.6 - 2.3 [facility] UN[facility]ERSITY mg/dL CAMPUS LABS Specimen Anatomical Collection Method Collection Time Receive d Time (Source) Location / / Volume Laterality Blood specimen 02/14/2014 7:51 AM 014 7:53 (specimen) CDT AM CDT Joseph Quintana MD LAB - BLOOD ORDERABLES Performing Organization Address City/[facility] Code Phon e Number [facility] [address] [place] [address] [facility] LABS (ABNORMAL) Basic metabolic panel (02/14/2014 7:51 AM CDT) Patholo gist Method Time Signature Sodium 143 133 - 144 [facility] mmol/L [facility] LABS Potassium 5.4 (H) 3.4 - 5.3 [facility] mmol/L [facility] LABS Chloride 113 (H) 94 - 109 [facility] mmol/L [facility] LABS Carbon Dioxide 20 20 - 32 [facility] mmol/L [facility] LABS Anion Gap 9 6 - 17 [facility] mmol/L [facility] LABS Glucose 193 (H) 60 - 99 [facility] mg/dL [facility] LABS Urea Nitrogen 18 7 - 30 [facility] mg/dL [facility] LABS Creatinine 1.82 (H) 0.66 - [facility] 1.25 mg/dL [facility] LABS GFR Estimate 38 (L) >60 [facility] mL/min/1.7 [place] m2 CAMPUS LABS GFR Estimate If 46 (L) >60 [facility] Black mL/min/1.7 [place] m2 CAMPUS LABS Calcium 9.2 8.5 - 10.4 [facility] mg/dL [facility] LABS Specimen Anatomical Collection Method Collection Time Receive d Time (Source) Location / / Volume Laterality Blood specimen 02/14/2014 7:51 AM 014 7:53 (specimen) CDT AM CDT Joseph Quintana MD LAB - BLOOD ORDERABLES Performing Organization Address City/State/ZIP Code Phon e Number [facility] [address] [place] [address] [facility] LABS documented in this encounter Visit Diagnoses Diagnosis Kidney replaced by transplant - Primary S/P kidney transplant Kidney replaced by transplant documented in this encounter Care Teams Instrument Repairer Relationship Specialty Start Date End Date Forbes, Ton PCP - General Family Practice 01/02/14 [facility] [address] [place] [address] Ingrid Santana, RN Registered Nurse Transplant 02/10/12 10/01/15 documented as of this encounter
--- OUTSIDE RECORDS SUMMARY | 2022-04-14 11:11 | XMS_ITS | Encounter Summary ---
:1950 Author Organization [place] Address [facility] [place] [address] Care Team Providers Name Role Phone Ingrid Santana RN Unavailable Momo Forbes Primary Care Provider Reason for Visit Reason Comments Eval/Assessment LBA Encounter Details Date Type Department Care Team Description 02/14/2014 Office Visit Specialty Infusion Edward, Naim S, Kidney r eplaced by transplant (Primary Dx); and Procedure Center Immunosuppression (H); [facility] Hyperka lemia; Building ORIENT Hypophosphatemia; [address] Atrial fibrillation (H); [address] [place], [place]; [place] [address] HTN (hypertension) [place], [place] [phone] (Work) [phone] Social History Tobacco Use Types Packs/Day Years [...] Years of Education: 14 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
--- OUTSIDE RECORDS SUMMARY | 2022-04-14 11:11 | XMS_ITS | Encounter Summary ---
:1950 Author Organization [place] Address [facility]0 [place] [address] Care Team Providers Name Role Phone Ingrid Santana RN Unavailable Momo Forbes Primary Care Provider Reason for Visit Reason Comments Eval/Assessment s/p kidney transplant 8days ago Encounter Details Date Type Department Care Team Description 02/10/2014 Infusion Therapy Specialty Infusion Finger, Migel Mac y replaced by Visit and Procedure MD Nathan transplant (Primary Center [address] [place] [address]) [facility] [address] [phone] [place], [place] (Work) [phone] Social History Tobacco Use [...] 10:40 AM CDT Diego Guthrie came to [facility] today for a lab and assess 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 Discharge date: 02/08/14 product marketing coordinator: Leandro Kahn RN Phone number patient can be reached at: [phone] (girlfriend's cell) Physical Assessment: See physical assessment located under Document Flowsheets. 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 verbalized understanding, all questions answered: YES Discharged [...] Results Tacrolimus level (02/10/2014 8:37 AM CDT) [facility] Method Time Signature Tacrolimus Not Provided [facility] Last Dose [facility] LABS Tacrolimus 6.8 5.0 - [facility] Level 15.0 ug/L [facility] LABS Comment: Tacrolimus Reference Range Kidney Transplant [...] e Number [facility] [address] [place] [address] [facility] LABS (ABNORMAL) CBC with platelets differential (02/10/2014 8:37 AM CDT) Component Value Ref Test Analysis Performed At [facility] gist Range Method Time Signature WBC 5.5 4.0 - [facility] 11.0 [place] LABS 10e9/L RBC Count 2.53 (L) 4.4 - [facility] 5.9 CAMPUS LABS 10e12/L Hemoglobin 7.9 (L) 13.3 - [facility] 17.7 CAMPUS LABS g/dL Hematocrit 23.2 (L) 40.0 - [facility] 53.0 % CAMPUS LABS MCV 92 78 - 100 [facility] fl CAMPUS LABS MCH 31.2 26.5 - [facility] 33.0 pg CAMPUS LABS MCHC 34.1 31.5 - [facility] 36.5 CAMPUS LABS g/dL RDW 14.5 10.0 - [facility] 15.0 % CAMPUS LABS Platelet Count 89 (L) 150 - [facility] 450 CAMPUS LABS 10e9/L Diff Method Manual [...] Code Phon e Number [facility] [id number] DIFFERENTIAL [facility] LABS (ABNORMAL) Phosphorus (02/10/2014 8:37 AM CDT) P athologist Signature Phosphorus 1.9 (L) 2.5 - 4.5 [facility] mg/dL CAMPUS LABS Specimen Anatomical Collection Method Collection Time Receive d Time (Source) Location / / Volume Laterality Blood specimen 02/10/2014 8:37 AM 014 8:38 (specimen) CDT AM CDT Migel Merchant MD LAB - BLOOD ORDERABLES Performing Organization Address City/State/[facility] Code Phon e Number [facility] [address] LABS Magnesium (02/10/2014 8:37 AM CDT) [...] [facility] [place]/ZIP Code Phon e Number [facility] [address] LABS (ABNORMAL) Basic metabolic panel (02/10/2014 8:37 AM CDT) Patholo gist Method Time Signature Sodium 144 133 - 144 [facility] mmol/L [facility] LABS Potassium 4.8 3.4 - 5.3 [facility] mmol/L [facility] LABS Chloride 111 (H) 94 - 109 [facility] mmol/L [facility] LABS Carbon Dioxide 22 20 - 32 [facility] mmol/L [facility] LABS Anion Gap 10 6 - 17 [facility] mmol/L [facility] LABS Glucose 128 (H) 60 - 99 [facility] mg/dL [facility] LABS Urea Nitrogen 34 (H) 7 - 30 [facility] mg/dL [facility] LABS Creatinine 1.80 (H) 0.66 - [facility] 1.25 mg/dL [facility] LABS GFR Estimate 38 (L) >60 [facility] mL/min/1.7 [facility] m2 CAMPUS LABS GFR Estimate If 46 (L) >60 [facility] Black mL/min/1.7 [place] [address] CAMPUS LABS Calcium 9.1 8.5 - 10.4 [facility] mg/dL [facility] LABS Specimen Anatomical Collection Method Collection Time Receive d Time (Source) Location / / Volume Laterality Blood specimen 02/10/2014 8:37 AM 014 8:38 (specimen) CDT AM CDT Migel Merchant MD LAB - BLOOD ORDERABLES Performing Organization Address City/State/ZIP Code Phon e Number [facility] [address] [place] [address] [facility] LABS documented in this encounter Visit Diagnoses Diagnosis Kidney replaced by transplant - Primary documented in this encounter Care Teams Maintenance Plumber Relationship Specialty Start Date End Date Momo Forbes PCP - General Family Practice 01/02/14 [facility] [address] [place] [address] Ingrid Santana, RN Registered Nurse Transplant 02/10/12 10/01/15 documented as of this encounter
--- OUTSIDE RECORDS SUMMARY | 2022-04-14 11:12 | XMS_ITS | Encounter Summary ---
:1950 Author Organization [place] Address [address] [place] [address]. [place] [address] Care Team Providers Name Role Phone Ingrid Santana RN Unavailable Momo Forbes Primary Care Provider Encounter Details Date Type Department Care Team Description 02/02/2014 Abstract The Transplant [facility] 2nd Floor, Clinic [address] [phone] Social History Tobacco Use [...] on filedocumented in this encounter Care Teams Dredge Lever Operator Relationship Specialty Start Date End Date Momo Forbes PCP - General Family Practice 01/02/14 [facility] [address] [place] [address] Ingrid Santana RN Registered Nurse Transplant 02/10/12 10/01/15 documented as of this encounter
--- OUTSIDE RECORDS SUMMARY | 2022-04-14 11:12 | XMS_ITS | Encounter Summary ---
:1950 Author Organization [place] Address [address] [place] [address]. [place] [address] Care Team Providers Name Role Phone Ingrid Santana RN Unavailable Momo Forbes Primary Care Provider Reason for Referral Home Health Therapies & Aides Specialty Diagnoses / Procedures Referred By Contact Refer red To Contact Adeline Diaz MD [place] [phone] Referral ID Status Reason Start Date Expiration Date Visits Requ ested Visits Authorized ome Health Therapies & Aides Specialty Diagnoses / Procedures Referred By Contact Gary phelps To Contact Adeline Diaz MD [place] [phone] Referral ID Status Reason Start Date Expiration Date Visits Requ ested Visits Authorized ome Health Therapies & Aides Specialty Diagnoses / Procedures Referred By Contact Gary phelps To Contact [facility] [address] [place] [phone] Referral ID Status Reason Start Date Expiration Date Visits Requ ested Visits Authorized Reason for Visit Auth/Cert - Closed Specialty Diagnoses / Procedures Referred By Pippa phelps To Contact Med Surg Diagnoses end stage renal disease dialysis End stage renal failure on dialysis Renal Failure Uu U7a Procedures TRANSPLANT KIDNEY RECIPIENT DONOR [address] [place] [address] Phone: Referral ID Status Reason Start Date Expiration Date Visits Requ ested Visits Authorized [id number] Closed 02/04/2014 08/03/2014 1 1 Encounter Details Date Type Department Care Team Description 02/02/2014 - Hospital Encounter [facility] Susie Doyle MD [address] [place] [id number] S/P kidney transplant (Primary Dx); 02/08/2014 [facility] Unit [address]A Mathew Parker MD [address] [place] [address] Atrial fibrillation (H) Bank [address] [place] [address] Social History Tobacco Use Types [...] Physician Discharge Summary Patient ID: Diego Guthrie [id number] 63 year old 1950 Admit date: 02/02/2014 [...] Take 1 tablet by mouth daily. B ifsvoki-U-yfzpe acid (NEPHROCAPS) 1 MG capsule Take 1 [...] in the [facility] ([facility]) which is located on the second floor of the [facility] next to the Transplant Clinic. Your [...] of these appointments you will meetwith a endodontist and meet your video coordinator. Your nurse will also be in communication with your surgeon and endodontist as needed. The direct number to the [facility] is [phone]. In the [facility] [...] the hospital. This will be located in [facility] transplant surgery clinic on the second floor.Your transplant surgeon is: Dr. Merchant. You have a ureteral stent in place which needs to be removed in 4-6 weeks. If a patient scheduler does not contact you for this, please contact your video coordinator. If you have modesta in place, they will be removed in 3 weeks after operation. Notify your coordinator if you have pain over your kidney, fever greater than 101.5F, or decreased urine output. Notify your coordinator immediately if you are ever unable to take your immunosuppressive medications for any reason. Shoe Repairer [phone] Diet recommendations post-transplant: Heart healthy dietary habits longterm (low saturated/trans fat, low sodium). High protein [...] >2. He can be seen by any wafer fab technician in the outpatient setting for coordination. Continue metoprolol 25 po bid until he is r e-evaluated. We did attempt inpatient REFUGIO guided cardioversion, but the patient developed significant bleeding while on heparin. José Miguel Alvarez M.D. Cardiac Cath Technician Joseph Quintana MD - 02/08/2014 12:35 PM [...] Dr. Quintana. Sina Robison MD Nephrology Fellow [phone] Attestation: This patient has been seen and [...] Ramires RN - 02/07/2014 2:25 PM CDT Core Placer D: Diego Guthrie 63 year old male POD #5 s/p DDKT for ESRD 2/[address] Diaz note today. Per Dr Diaz, pt will most likely be ready for d/c to home tomorrow and will return to [facility] for 5 days at 0700. Pt [...] him. Pt does not know where the [facility] or transplant clinic is, I told him and he replied I will find it. Pt does not care which [facility] agency will follow him--There are only 2 to choose from, so I chose the [facility] [phone]/ --I called and left a message with Estrella Fletcher and I fax'd his records tothem--pt will need start of care approx Thursday 02/15. Pt is new on warfarin and I called his PCP's office and they have INR nurses Tuesday-Tuesday their fax # is [phone] (when N visits are completed --pt will call main clinic # to schedule INR draws). 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 I verified his address and phone #(is his cell) on the facesheet. Pt has not met his OP hospice care sales consultant: Leandro Kahn, yet--I sent Leandro an in basket message today-with plan. A: possible d/c to home Tuesday P: see above-will follow and will call [facility] to confirm they can accept him. [...] Dr. Quintana. Sina Robison MD Nephrology Fellow [phone] Attestation: This patient has been seen and [...] assistance Medical Decision Making: Medium Subsequent visit 25631 (moderate level decision making) PATO/Fellow/Resident Provider: Adeline [...] Rodriguez MD - 02/06/2014 4:25 PM CDT [facility] Cardiology Progress Note I [...] Dr. Quintana. Sina Robison MD Nephrology Fellow [phone] Attestation: This patient has been seen and [...] Dr. Quintana. Sina Robison MD Nephrology Fellow [phone] Attestation: This patient has been seen and [...] REPLACEMENT ONLY ??? insulin (regular) Stopped (02/05/14 7237) Shiva Kahn RN - 02/05/2014 4:47 PM CDT PHARMACY MANAGER NOTE I met with the patient and his yesterday at [facility] PCU-6B (telemetry unit) to discuss transition from inpatient to outpatient care following kidney translantation. The patient is POD #3 extended criteria donor (CASINO SUPERVISOR) kidney transplant for ESRD related to [...] the plan for daily visits to the [facility] for 5 days after discharge followed [...] meet [facility] discharge from [facility]. Joseph Rodriguez MD - 02/05/2014 11:16 AM CDT [facility] Cardiology Progress Note I [...] plan for REFUGIO cardioversion tomorrow, NPO at CT (orders placed) -- continue heparin and initiate [...] kidney on 02/02/2014. Pt lives alone in [facility] though reports that his girlfriend in in the process of moving in with him. Pt girlfriend, Tete, will be present when pt returns home but she works multimedia services coordinator. Pt was on dialysis for 2 1/2 years prior to transplant. Pt works independently but reports that he currently has no income coming in. Pt has primary insurancethrough Medicare and Secondary insurance through [employer]. Pt has no co-pays for his immunosuppressants and a high out of pocket cost for Valcyte, SW to look into grants for pt for Valcyte. I: Met with pt to introduce this insurance underwriter sales and explain sw role and services available while inpatient in the hospital. Asked if pt had any questions or concerns and completed an assessment of psychosocialneeds post transplant. Provided education about expectations and requirements post discharge like fol low up in the [facility]. Pt is unsure yet if he [...] needs arise prior to discharge. CECY Kearns, FILM NUMBERER Indu Calixto MD - 02/05/2014 1:50 AM [...] Adds Type of Visit Initial PT Evaluation Labor Arbitrator Hearing Office Labor Arbitrator Hearing Office Present no Language Zambian Living Environment (R) Lives With alone Living Arrangements ([facility]) Home Accessibility no concerns Number of [...] up when pt is available. CECY Kearns, FILM NUMBERER [phone] phone [phone] pager Joseph Quintana MD - 02/04/2014 11:51 [...] Dr. Quintana. Sina Robison MD Nephrology Fellow [phone] Attestation: This patient has been seen and [...] for this basename: PTHI, in the last 27208 hours IRON STUDIES No results found for this basename: IRON, FEB, IRONSAT, THEE, in the last 52859 hours Imaging: All imaging studies reviewed by [...] or equal to 12.0 mlU/mL. Adeline Diaz [phone] Attestation: The patient has been seen and [...] donor kidney transplant, with stent on 02/02/14. CASINO SUPERVISOR donor. Graft function:uncertain, Cr slightly up. [...] . Medical Decision Making: Medium Subsequent visit 48240 (moderate level decision making) PATO/Fellow/Resident Provider: Caitlin Owens MD Faculty: Migle Merchant M.D., Ph.D. Transplant History: Admitted 02/02/2014 [...] note and orders. Migel Merchant MD, PhD stunt double Abdominal Organ Transplantation Carmelita Rosario, RN - 02/03/2014 9:38 AM CDT Patient removed from the UNOS waitlist after donor kidney transplant. UNOS ID is [id number]. Rafaela Cardona - 02/03/2014 9:17 AM CDT [...] followed general diet. Patient reports good appetite/intake FURNACE COMBINATION ANALYST, no nutrition issues/concnerns. CURRENT NUTRITION ORDERS - [...] DDKT ASSESSED NUTRITION NEEDS: Estimated Energy Needs: 5350-8270+ kcals (25-30+ Kcal/Kg) Justification: maintenance post-transplant Estimated [...] (6- 8 weeks). Rec follow heart-healthy diet longterm. Implementation Nutrition education: Provided instruction on post-transplant diet with discussion regarding protein sources and high protein needs in acute post-tx phase. Reviewed recommendations to follow low fat/lowsodium diet longterm and discussed heart healthy diet tips. Discussed [...] adjustment. Rafaela Cardona RD, LD Weekend Coverage [phone] Jose Aguirre MD - 02/03/2014 4:57 AM [...] Doing well postoperatively. Pain: Controlled by Dilaudid WOVEN PAPER HAT MENDER Diet: NPO tonight Volume Status: Borderline low UOP, continue MIVF, 0.9 % NS 500 cc bolus given for low UOP, CVP not accurate, systolic in 100-110 Recheck hemoglobin and potassium normal. Rest of the plan per primary team. Will continue to follow. Jose Aguirre MD PGY-1.................02/03/2014 Surgery Cross Cover Pager:[phone] documented in this encounter H&P Notes Caitlin [...] 1 tablet by mouth daily. ??? 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 Kidney [...] note and orders. Migel Merchant MD, PhD stunt double Abdominal Organ Transplantation documented in this encounter Consult Notes Joseph Rodriguez MD - 02/04/2014 11:03 AM CDTAssociated Order(s): CARDIOLOGY IP CONSULT [facility] CARDIOLOGY CONSULT SERVICE INITIAL CONSULT NOTE [...] 1 tablet by mouth daily. ??? 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 2. There is no [...] assessment and plan. José Miguel Alvarez MD Cardiac Cath Technician Pager: [phone] February 04, 2014 Kaitlynn Leon MD - 02/03/2014 9:30 AM CDT Nephrology Initial Consult February 03, 2014 Diego Guthrie Date of : 1950 Date of Admission:02/02/2014 Primary care provider: Momo Forbes Requesting physician: Migel Merchant MD ASSESSMENT AND RECOMMENDATIONS: 1. DDKT - CASINO SUPERVISOR -59 yo women; slow graft function-no immediate need for dialysis , but may require tomorrow if UO does not pear picker. We will monitor Induction with Thymo/Cellcept [...] h/o type 2 Dm, who received DDKT (CASINO SUPERVISOR) on 02/02/2014 donor kidney had severe [...] ??? Cataract iol, rt/lt both eyes MEDICATIONS: FURNACE COMBINATION ANALYST Meds Prior to Admission medications Medication Sig Last Dose Taking? Auth Provider Calcium Carbonate-Vitamin D (CALCIUM + D PO) Take by mouth daily. Reported, Patient lisinopril (PRINIVIL,ZESTRIL) 40 MG tablet Take 40 mg by mouth 2 times daily. Reported, Patient METOPROLOL SUCCINATE PO Take by mouth daily. Reported, Patient aspirin 81 MG tablet Take 1 tablet by mouth daily. Reported, Patient B guhrmtb-H-spjnn acid (NEPHROCAPS) 1 MG capsule Take 1 [...] Intravenous Central line Once ??? HYDROmorphone Intravenous WOVEN PAPER HAT MENDER Infusion Meds ??? 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 Alvin Diego Cardiovascular Disease Fellow [phone] Patient seen and examined by me with [...] Cullen MD, PhD Jarad Cullen MD, PhD [phone] documented in this encounter Nursing Notes Gretta Mary RN - 02/02/2014 11:[address] Owens with Transplant Surgery notified of stat lab results. Magnesium replaced. Dr. Blank with Anesthesia reviewed chest x-ray. CVC not deep enough to give accurate CVP readings, however all lumens aspirate blood well. Patient is ok to transfer to unit 6B per [facility]. documented in this encounter Miscellaneous Notes Plan of Care - Amanda Hernandez RN - 02/08/2014 3:44 PM CDT Problem: IP GENERAL POC-ADULT,OB,BEHAVIORAL FVCPM Goal: Individualization/Patient-Specific Goal (Adult,OB,Behavioral The patient and/or their medical detail representative will achieve their patient-specific goals related [...] Card updated. [facility] Left facility accompanied by s.gumaro at 1600. Plan of Care - Amanda Hernandez RN - 02/08/2014 2:13 PM CDT Problem: IP GENERAL POC-ADULT,OB,BEHAVIORAL FVCPM Goal: Individualization/Patient-Specific Goal (Adult,OB,Behavioral The patient and/or their medical detail representative will achieve their patient-specific goals related [...] Individualization/Patient-Specific Goal (Adult,OB,Behavioral The patient and/or their medical detail representative will achieve their patient-specific goals related [...] Individualization/Patient-Specific Goal (Adult,OB,Behavioral The patient and/or their medical detail representative will achieve their patient-specific goals related [...] Diet recommendations post-transplant: Heart healthy dietary habits joint terminal attack controller (low saturated/trans fat, low sodium). High protein diet x 8 weeks. Practice food safety precautions - no fish/seafood x 3 weeks. Inez Luevano MS, RD, LD Pager [phone] Pharmacy-Immunosuppression Monitoring - Em Vasquez [facility] - 02/07/2014 9:06 AM CDT Tacrolimus Monitoring [...] will continue to follow. Em Vasquez, Pharm.D., [facility] Pager [phone] Plan of Care - Annmarie Colby RN - 02/07/2014 5:11 AM CDT Problem: IP GENERAL POC-ADULT,OB,BEHAVIORAL FVCPM Goal: Individualization/Patient-Specific Goal (Adult,OB,Behavioral The patient and/or their medical detail representative will achieve their patient-specific goals related [...] Individualization/Patient-Specific Goal (Adult,OB,Behavioral The patient and/or their medical detail representative will achieve their patient-specific goals related [...] increased fluid intake, urine color is becoming rivet heater( tea color/bloody- >dark sy/tea color). Incisional pain [...] Physical Therapy Goals The patient and/or their medical detail representative will achieve their patient-specific goals related [...] Physical Therapy Goals The patient and/or their medical detail representative will achieve their patient-specific goals related [...] Individualization/Patient-Specific Goal (Adult,OB,Behavioral The patient and/or their medical detail representative will achieve their patient-specific goals related [...] Individualization/Patient-Specific Goal (Adult,OB,Behavioral The patient and/or their medical detail representative will achieve their patient-specific goals related [...] Physical Therapy Goals The patient and/or their medical detail representative will achieve their patient-specific goals related [...] at this time. Pharmacy - Cayetano Olivera [facility] - 02/05/2014 12:26 PM CDT Visited 02/05/2014 in hospital room prior to discharge to review medications, review discharge process and review specialty pharmacy program. Med Review: Reviewed patient's medications and medical conditions. Patient would like to use [facility] to manage all medications. Medcard: [...] Specialty Pharmacy review: Discussed the benefits of [facility] and Diego has enrolled. Also gave him supplies (blood pressure cuff, thermometer, and pill box) Other concerns: No other concerns at this time. No further questions for this pharmacist. Inez Cox, Student Pharmacist Hotel Maintenance Technician [facility] [address] [place] [address] Cayetano Olivera, Pharmacist [facility] [phone] Pharmacy-Anticoagulation Service - Teresa Wright [facility] - 02/05/2014 11:29 AM CDT Clinical Pharmacy- [...] Individualization/Patient-Specific Goal (Adult,OB,Behavioral The patient and/or their medical detail representative will achieve their patient-specific goals related [...] melonie hard time making full sentences. When insurance underwriter sales came on shift at 8pm patient was [...] Individualization/Patient-Specific Goal (Adult,OB,Behavioral The patient and/or their medical detail representative will achieve their patient-specific goals related [...] Physical Therapy Goals The patient and/or their medical detail representative will achieve their patient-specific goals related [...] by friend. Pt transferred to chair, VSS, color television console monitor on, oriented to room. Pharmacy-Admission Medication History - Teresa Wright, [facility] - 02/04/2014 11:54 AM CDT Admission medication history interview status for the 02/02/2014 admission is complete. See [facility] admission navigator for allergy information, prior to admission medications and immunization status. Medication history interview sources (including written lists, pill bottles, clinic record):Patient Medication history source reliability:Good Primary pharmacy:[facility] phone number: [phone] Changes made to FURNACE COMBINATION ANALYST medication list (reason) Added: Vitamin D 1,000 [...] at Unknown time Yes Reported, Patient B pmhyzxe-Z-fmdim acid (NEPHROCAPS) 1 MG capsule Take 1 [...] Individualization/Patient-Specific Goal (Adult,OB,Behavioral The patient and/or their medical detail representative will achieve their patient-specific goals related [...] Physical Therapy Goals The patient and/or their medical detail representative will achieve their patient-specific goals related to the plan of care. The patient-specific goals include: PT 7A: HOLD for AM per RN - pt with a-fib this morning. Plan of Care - Alisson Diane RN - 02/04/2014 6:45 AM CDT Problem: IP GENERAL POC-ADULT,OB,BEHAVIORAL FVCPM Goal: Individualization/Patient-Specific Goal (Adult,OB,Behavioral The patient and/or their medical detail representative will achieve their patient-specific goals related [...] Individualization/Patient-Specific Goal (Adult,OB,Behavioral The patient and/or their medical detail representative will achieve their patient-specific goals related [...] to yellow. Pharmacy-Transplant Note - Davina Schuster, [facility] - 02/03/2014 4:28 PM CDT Adult Kidney [...] Individualization/Patient-Specific Goal (Adult,OB,Behavioral The patient and/or their medical detail representative will achieve their patient-specific goals related to the plan of care. The patient-specific goals include: 1. Pt will remain hemodynamically stable 2. Pt will have adequate urine output 3. Pt will be free of falls. RD Patient will verbalize understanding of 3 important aspects of post-transplant diet guidelines. PO intake >50% meals TID once diet adv. Report taken from [facility] on 6B; patient transferred to from 6B via wheelchair around 1500. Patientsettled into room, oriented to floor/room and call light. VS taken. Orders released. Continue ordersas written and notify MD with any concerns. Plan of Care - Sofie Christianson RN - 02/03/2014 2:59 PM CDT Problem: IP GENERAL POC-ADULT,OB,BEHAVIORAL FVCPM Goal: Plan of Care Review (Adult,OB,Behavioral) The patient and/or their medical detail representative will communicate an understanding of their [...] algorithm 2, 1 unit now. Pt still ioowfrbqy3N NC to maintain sats above 90 % [...] Individualization/Patient-Specific Goal (Adult,OB,Behavioral The patient and/or their medical detail representative will achieve their patient-specific goals related [...] Intermittent sharp R lower abd pain. Dilaudid WOVEN PAPER HAT MENDER encouraged, increased to 0.2/10/1.2. R lower abd [...] 0200 made 20cc/hr, at 0300 made 30cc/hr. [place]/red tinged urine. MIVF @ 125/hr. VSS. HR 70s, BPs 100s-120s/60s. No new orders at this time. Will continue to monitor. Plan of Care - Tasia Andrade RN - 02/03/2014 12:00 AM CDT Pt arrived to 6B from PACU, s/p DDKT. A&O x3-4. VSS. [place]/red urine output. Small amt drainage on abd [...] to Type 2 Diabetes. The patient received [facility] offer for a Donor CASINO SUPERVISOR (expanded criteria donor) kidney transplant. After [...] The UNOS number of the donor is [id number]. The crossmatch was done prospectively; and the [...] reconstruction. FACULTY SURGEON: Migel Merchant M.D., Ph.D. FELLOW/SULFONATION EQUIPMENT OPERATOR SURGEON: Caitlin Owens MD fellow ANESTHESIA: None VERIFICATION: Prior to incision, I verified the donor ABO and recipient ABO. After the donor organ arrived to the operating room and prior to anastamosis, I visually verified that the donor identification, blood type, and other vital data were compatible with the recipient. FINDINGS: Donor type: CASINO SUPERVISOR (expanded criteria donor) Organ: kidney Graft [...] Individualization/Patient-Specific Goal (Adult,OB,Behavioral The patient and/or their medical detail representative will achieve their patient-specific goals related [...] Individualization/Patient-Specific Goal (Adult,OB,Behavioral The patient and/or their medical detail representative will achieve their patient-specific goals related [...] LARES - ROBERT POCT Performing Organization Address City/State/[facility] Code Phon e Number FV POINT OF [...] GLUCOSE Tacrolimus level (02/08/2014 6:42 AM CDT) [facility] gist Method Time Signature Tacrolimus Not Provided [facility] Last Dose [facility] Tacrolimus 10.0 5.0 - [facility] Level 15.0 ug/L [facility] Comment: Tacrolimus Reference Range [...] e Number [facility] [address] [place] [address] [facility] (ABNORMAL) INR (02/08/2014 6:42 AM CDT) P athologist Signature INR 1.28 (H) 0.86 - 1.14 [facility] Specimen Anatomical Collection Method Collection Time Receive d Time (Source) Location / / Volume Laterality Blood specimen 02/08/2014 6:42 AM 014 6:43 (specimen) CDT AM CDT Omaira Chavez PA-C LAB - BLOOD ORDERABLES Performing Organization Address City/[facility]/ZIP Code Phon e Number [facility] [address] [place], [place] [id number] [place] [address] LABS (ABNORMAL) Basic metabolic panel (02/08/2014 6:42 AM CDT) Patholo gist Method Time Signature Sodium 144 133 - 144 [facility] mmol/L [facility] LABS Potassium 3.9 3.4 - 5.3 [facility] mmol/L [facility] LABS Chloride 110 (H) 94 - 109 [facility] mmol/L [facility] LABS Carbon Dioxide 25 20 - 32 [facility] mmol/L [facility] LABS Anion Gap 8 6 - 17 [facility] mmol/L [facility] LABS Glucose 144 (H) 60 - 99 [facility] mg/dL [facility] LABS Urea Nitrogen 66 (H) 7 - 30 [facility] mg/dL [facility] LABS Creatinine 2.38 (H) 0.66 - [facility] 1.25 mg/dL [facility] LABS GFR Estimate 28 (L) >60 [facility] mL/min/1.7 [facility] LABS GFR Estimate If 34 (L) >60 [facility] Black mL/min/1.7 [facility] LABS Calcium 9.4 8.5 - 10.4 [facility] mg/dL [facility] LABS Specimen Anatomical Collection Method Collection Time Receive d Time (Source) Location / / Volume Laterality Blood specimen 02/08/2014 6:42 AM 014 6:43 (specimen) CDT AM CDT Omaira Chavez PA-C LAB - BLOOD ORDERABLES Performing Organization Address City/State/ZIP Code Phon e Number [facility] [address] [place] [address] [facility] LABS Phosphorus (02/08/2014 6:42 AM CDT) P [...] e Number [facility] [address] LABS Magnesium (02/08/2014 6:42 AM CDT) P athologist Signature Magnesium 2.2 1.6 - 2.3 [facility] mg/dL [place] LABS Specimen Anatomical Collection Method Collection Time Receive d Time (Source) Location / / Volume Laterality Blood specimen 02/08/2014 6:42 AM 014 6:43 (specimen) CDT AM CDT Omaira Chavez PA-C LAB - BLOOD ORDERABLES Performing Organization Address City/[facility]/ZIP Code Phon e Number [facility] [address] LABS (ABNORMAL) CBC with platelets differential (02/08/2014 6:42 AM CDT) Patholo gist Method Time Signature WBC 4.8 4.0 - [facility] 11.0 [facility]/L [place] LABS RBC Count 2.56 (L) 4.4 - 5.9 [facility] 10e12/L [facility] LABS Hemoglobin 7.8 (L) 13.3 - [facility] 17.7 g/dL [facility] LABS Hematocrit 23.5 (L) 40.0 - [facility] 53.0 % [facility] LABS MCV 92 78 - 100 [facility] fl [facility] LABS MCH 30.5 26.5 - [facility] 33.0 pg [facility] LABS MCHC 33.2 31.5 - [facility] 36.5 g/dL [facility] LABS RDW 14.5 10.0 - [facility] 15.0 % [facility] LABS Platelet Count 70 (L) 150 - 450 [facility] 10e9/L [facility] LABS Diff Method Automated [facility] Method [facility] LABS % Neutrophils 86.3 % [facility] LABS % Lymphocytes 3.1 % [facility] LABS % Monocytes 9.4 % [facility] LABS % Eosinophils 1.0 % [facility] LABS % Basophils 0.0 % [facility] LABS % Immature 0.2 % [facility] Granulocytes [facility] LABS Absolute 4.1 1.6 - 8.3 [...] Organization Address City/State/ZIP Code Phon e Number [phone] [place] [address] LABS (ABNORMAL) Glucose by meter (02/07/2014 10:18 PM CDT) P athologist Signature Glucose 233 (H) 60 - 99 POINT OF CARE mg/dL TEST, GLUCOSE Specimen Anatomical Collection Method Collection Time Receive d Time (Source) Location / / Volume Laterality 02/07/2014 10:18 02/07/2014 PM CDT 10:20 PM CDT Migel LARES - BEAKER POCT Performing Organization Address City/[facility]/ZIP Code Phon e Number FV POINT [...] LAB - BEAKER POCT Performing Organization Address City/[facility]/ZIP [facility] Phon e Number FV POINT OF CARE [...] LAB - BEAKER POCT Performing Organization Address [facility] Phon e Number FV POINT OF [...] CDT Migel JONES POCT Performing Organization Address City/[facility] Code Phon e Number FV POINT OF [...] CDT Migel JONES POCT Performing Organization Address City/State/[facility] Code Phon e Number FV POINT OF CARE TEST, GLUCOSE POINT OF CARE TEST, GLUCOSE (ABNORMAL) INR (02/07/2014 4:23 AM CDT) athologist Signature INR 1.25 (H) 0.86 - [facility] Specimen Anatomical Collection Method Collection Time Receive d Time (Source) Location / / Volume Laterality Blood specimen 02/07/2014 4:23 AM 014 4:24 (specimen) CDT AM CDT Omaira Chavez PA-C LAB - BLOOD ORDERABLES Performing Organization Address City/[facility]/ZIP Code Phon e Number [facility] [address] [place] [address] [facility] LABS (ABNORMAL) Basic metabolic panel (02/07/2014 4:23 AM CDT) Patholo gist Method Time Signature Sodium 143 133 - 144 [facility] mmol/L [facility] LABS Potassium 4.1 3.4 - 5.3 [facility] mmol/L [facility] LABS Chloride 109 94 - 109 [facility] mmol/L [facility] LABS Carbon Dioxide 24 20 - 32 [facility] mmol/L [facility] LABS Anion Gap 10 6 - 17 [facility] mmol/L [facility] LABS Glucose 185 (H) 60 - 99 [facility] mg/dL [facility] LABS Urea Nitrogen 77 (H) 7 - 30 [facility] mg/dL [facility] LABS Creatinine 3.02 (H) 0.66 - [facility] 1.25 mg/dL [facility] LABS GFR Estimate 21 (L) >60 [facility] mL/min/1.7 [facility] GFR Estimate If 26 (L) >60 [facility] Black mL/min/1.7 [facility] [facility] LABS Calcium 9.3 8.5 - 10.4 [facility] mg/dL [facility] LABS Specimen Anatomical Collection Method Collection Time Receive d Time (Source) Location / / Volume Laterality Blood specimen 02/07/2014 4:23 AM 014 4:24 (specimen) CDT AM CDT Omaira Chavez PA-C LAB - BLOOD ORDERABLES Performing Organization Address City/State/ZIP Code Phon e Number [facility] [address] [place] [address] [facility] LABS Phosphorus (02/07/2014 4:23 AM CDT) P [...] e Number [facility] [address] LABS Magnesium (02/07/2014 4:23 AM CDT) P athologist Signature Magnesium 2.1 1.6 - 2.3 [facility] mg/dL [place] LABS Specimen Anatomical Collection Method Collection Time Receive d Time (Source) Location / / Volume Laterality Blood specimen 02/07/2014 4:23 AM 014 4:24 (specimen) CDT AM CDT Omaira Chavez PA-C LAB - BLOOD ORDERABLES Performing Organization Address City/[facility]/ZIP Code Phon e Number [facility] [address] [place], [place] [phone] [place] [address] LABS (ABNORMAL) CBC with platelets differential (02/07/2014 4:23 AM CDT) Patholo gist Method Time Signature WBC 2.7 (L) 4.0 - [facility] 11.0 [facility] 10[facility]9/L [place] LABS RBC Count 2.80 (L) 4.4 - 5.9 [facility] 10e12/L [facility] LABS Hemoglobin 8.5 (L) 13.3 - [facility] 17.7 g/dL [facility] LABS Hematocrit 25.8 (L) 40.0 - [facility] 53.0 % [facility] LABS MCV 92 78 - 100 [facility] fl [facility] LABS MCH 30.4 26.5 - [facility] 33.0 pg [facility] LABS MCHC 32.9 31.5 - [facility] 36.5 g/dL [facility] LABS RDW 14.5 10.0 - [facility] 15.0 % [facility] LABS Platelet Count 77 (L) 150 - 450 [facility] 10e9/L [facility] LABS Diff Method Automated [facility] Method [facility] LABS % Neutrophils 87.5 % [facility] LABS % Lymphocytes 3.8 % [facility] LABS % Monocytes 8.7 % [facility] LABS % Eosinophils 0.0 % [facility] LABS % Basophils 0.0 % [facility] LABS % Immature 0.0 % [facility] Granulocytes [facility] Absolute 2.3 1.6 - 8.3 [facility] Neutrophil 10e9/L [facility] [place] LABS Absolute 0.1 (L) 0.8 - 5.3 [facility] Lymphocytes 10e9/L [facility] LABS Absolute 0.2 0.0 - 1.3 [facility] Monocytes 10e9/L [facility] LABS Absolute 0.0 0.0 - 0.7 [facility] Eosinophils 10e9/L [facility] LABS Absolute 0.0 0.0 - 0.2 [facility] Basophils 10e9/L [facility] LABS Abs Immature 0.0 0 - 0.4 [facility] Granulocytes 10e9/L [facility] LABS Specimen Anatomical Collection Method Collection Time Receive d Time (Source) Location / / Volume Laterality Blood specimen 02/07/2014 4:23 AM 014 4:24 (specimen) CDT AM CDT Omaira Chavez PA-C LAB - BLOOD ORDERABLES Performing Organization Address City/[facility]/ZIP Code Phon e Number [address] LABS (ABNORMAL) Hemoglobin A1c (02/07/2014 4:23 AM CDT) Analysis Performed At Patho logist Time Signature Hemoglobin A1C 6.1 (H) 4.3 - 6.0 [facility] % [facility] LABS Specimen Anatomical Collection Method Collection Time Receive d Time (Source) Location / / Volume Laterality Blood specimen 02/07/2014 4:23 AM 014 4:24 (specimen) CDT AM CDT Omaira Chavez PA-C LAB - BLOOD ORDERABLES Performing Organization Address City/[facility]/ZIP Code Phon e Number [address] LABS (ABNORMAL) Glucose by meter (02/06/2014 [...] Signature Hemoglobin 8.8 (L) 13.3 - 17.7 [facility] g/dL [place] LABS Specimen Anatomical Collection Method Collection Time Receive d Time (Source) Location / / Volume Laterality Blood specimen 02/06/2014 4:59 PM 014 5:12 (specimen) CDT PM CDT Omaira Chavez PA-C LAB - BLOOD ORDERABLES Performing Organization Address City/State/ZIP Code Phon e Number [address] [address] [facility] LABS (ABNORMAL) Glucose by meter (02/06/2014 12:01 PM CDT) athologist Signature Glucose 181 (H) 60 - 99 POINT OF CARE mg/dL TEST, GLUCOSE Specimen Anatomical Collection Method Collection Time Receive d Time (Source) Location / / Volume Laterality 02/06/2014 12:01 02/06/2014 PM CDT 12:05 PM CDT Migel Merchant MD LAB - BEAKER POCT Performing Organization Address City/[facility]/ZIP Code Phon e Number FV POINT OF CARE TEST, GLUCOSE POINT OF CARE TEST, GLUCOSE (ABNORMAL) Partial thromboplastin time (02/06/2014 5:57 AM CDT) P athologist Signature PTT 154 (HH) 22 - 37 sec [facility] LABS Comment: Critical Value called to and read back Whitney Poon RN AT 0642. PW Specimen Anatomical Collection Method Collection Time Receive d Time (Source) Location / / Volume Laterality 02/06/2014 5:57 AM 4 6:03 CDT AM CDT Adeline Diaz MD LAB - BLOOD ORDERABLES Performing Organization Address City/[facility]/ZIP Code Phon e Number [phone] [place] [address] LABS Heparin Xa (10a) Level (02/06/2014 5:57 AM CDT) P athologist Signature Heparin 10A 0.92 IU/mL [facility] LABS Comment: Therapeutic Range: ?? UFH: [...] e Number [facility] [address] [place] [address] [facility] LABS (ABNORMAL) INR (02/06/2014 5:57 AM CDT) P athologist Signature INR 1.32 (H) 0.86 - 1.14 [facility] LABS Specimen Anatomical Collection Method Collection Time Receive d Time (Source) Location / / Volume Laterality Blood specimen 02/06/2014 5:57 AM 014 6:03 (specimen) CDT AM CDT Omaira Chavez PA-C LAB - BLOOD ORDERABLES Performing Organization Address City/State/ZIP Code Phon e Number [facility] [address] LABS (ABNORMAL) Basic metabolic panel (02/06/2014 5:57 AM CDT) Patholo gist Method Time Signature Sodium 142 133 - 144 [facility] mmol/L [facility] LABS Potassium 4.7 3.4 - 5.3 [facility] mmol/L [facility] LABS Chloride 106 94 - 109 [facility] mmol/L [facility] LABS Carbon Dioxide 28 20 - 32 [facility] mmol/L [facility] LABS Anion Gap 8 6 - 17 [facility] mmol/L [facility] LABS Glucose 196 (H) 60 - 99 [facility] mg/dL [facility] LABS Urea Nitrogen 71 (H) 7 - 30 [facility] mg/dL [facility] LABS Creatinine 3.96 (H) 0.66 - [facility] 1.25 mg/dL [facility] LABS GFR Estimate 15 (L) >60 [facility] mL/min/1.7 [facility] [facility] LABS GFR Estimate If 19 (L) >60 [facility] Black mL/min/1.[address] LABS Calcium 9.4 8.5 - 10.4 [facility] mg/dL [facility] LABS Specimen Anatomical Collection Method Collection Time Receive d Time (Source) Location / / Volume Laterality Blood specimen 02/06/2014 5:57 AM 014 6:03 (specimen) CDT AM CDT Omaira Chavez PA-C LAB - BLOOD ORDERABLES Performing Organization Address City/State/ZIP Code Phon e Number [facility] [address] [place] [address] [facility] LABS Phosphorus (02/06/2014 5:57 AM CDT) athologist Signature Phosphorus 4.5 2.5 - 4.5 [facility] mg/dL [place] LABS Specimen Anatomical Collection Method Collection Time Receive d Time (Source) Location / / Volume Laterality Blood specimen 02/06/2014 5:57 AM 014 6:03 (specimen) CDT AM CDT Omaira Chavez PA-C LAB - BLOOD ORDERABLES Performing Organization Address City/[facility]/ZIP Code Phon e Number [facility] [address] LABS Magnesium (02/06/2014 5:57 AM CDT) athologist Signature Magnesium 1.9 1.6 - 2.3 [facility] mg/dL [place] LABS Specimen Anatomical Collection Method Collection Time Receive d Time (Source) Location / / Volume Laterality Blood specimen 02/06/2014 5:57 AM 014 6:03 (specimen) CDT AM CDT Omaira Chavez PA-C LAB - BLOOD ORDERABLES Performing Organization Address City/State/[facility] Code Phon e Number [facility] [address] LABS (ABNORMAL) CBC with platelets differential (02/06/2014 5:57 AM CDT) [facility] Method Time Signature WBC 5.1 4.0 - [facility] 11.0 [facility] 10e9/L [place] LABS RBC Count 3.13 (L) 4.4 - 5.9 [facility] 10e12/L [facility] LABS Hemoglobin 9.6 (L) 13.3 - [facility] 17.7 g/dL [facility] LABS Hematocrit 29.0 (L) 40.0 - [facility] 53.0 % [facility] LABS MCV 93 78 - 100 [facility] fl [facility] LABS MCH 30.7 26.5 - [facility] 33.0 pg [facility] LABS MCHC 33.1 31.5 - [facility] 36.5 g/dL [facility] LABS RDW 14.5 10.0 - [facility] 15.0 % [facility] LABS Platelet Count 85 (L) 150 - 450 [facility] 10e9/L [facility] LABS Diff Method Automated [facility] Method [facility] LABS % Neutrophils 86.0 % [facility] LABS % Lymphocytes 5.1 % [facility] LABS % Monocytes 8.7 % [facility] LABS % Eosinophils 0.0 % [facility] LABS % Basophils 0.0 % [facility] LABS % Immature 0.2 % [facility] Granulocytes [facility] LABS Absolute 4.4 1.6 - 8.3 [facility] Neutrophil 10e9/L [facility] LABS Absolute 0.3 (L) 0.8 - 5.3 [facility] Lymphocytes 10e9/L [facility] LABS Absolute 0.4 0.0 - 1.3 [facility] Monocytes 10e9/L [facility] LABS Absolute 0.0 0.0 - 0.7 [facility] Eosinophils 10e9/L [facility] LABS Absolute 0.0 0.0 - 0.2 [facility] Basophils 10e9/L [facility] LABS Abs Immature 0.0 0 - 0.4 [facility] Granulocytes 10e9/L [facility] LABS Specimen Anatomical Collection Method Collection Time Receive d Time (Source) Location / / Volume Laterality Blood specimen 02/06/2014 5:57 AM 014 6:03 (specimen) CDT AM CDT Omaira Chavez PA-C LAB - BLOOD ORDERABLES Performing Organization Address City/State/ZIP Code Phon e Number [address] LABS (ABNORMAL) Lipid panel reflex to direct LDL (02/06/2014 5:57 AM CDT) P athologist Signature Cholesterol 126 <200 mg/dL [facility] LABS Comment: LDL Cholesterol is the primary guide to therapy. The NCEP recommends further evaluation of: patients with cholesterol greater than 200 mg/dL if additional risk facto rs are present, cholesterol greater than 240 mg/dL, triglycerides greater than 1 50 mg/dL, or HDL less than 40 mg/dL. Triglycerides 100 0 - 150 mg/dL [facility] LABS HDL Cholesterol 35 (L) >40 mg/dL [facility] LABS LDL Cholesterol Calculated 71 0 - 129 mg/dL [facility] LABS Comment: LDL Cholesterol is the primary guide to therapy: LDL-cholesterol goal in high risk patients is <100 mg/dL and in very high risk patients is <70 mg/dL. VLDL-Cholesterol 20 0 - 30 mg/dL [facility] Cholesterol/HDL Ratio 3.6 0.0 - 5.0 [facility] Specimen Anatomical Collection Method Collection Time Receive d Time (Source) Location / / Volume Laterality Blood specimen 02/06/2014 5:57 AM 014 6:03 (specimen) CDT AM CDT Omaira Chavez PA-C LAB - BLOOD ORDERABLES Performing Organization Address City/State/ZIP Code Phon e Number [facility] [address] [place], [place] [id number] [place] [address] LABS Tacrolimus level (02/06/2014 5:57 AM CDT) [facility] gist Method Time Signature Tacrolimus S Negative [facility] Last Dose [facility] LABS Tacrolimus 12.7 5.0 - [facility] Level 15.0 ug/L [facility] LABS Comment: Tacrolimus Reference Range [...] LAB - BLOOD ORDERABLES Performing Organization Address City/[facility]/ZIP Code Phon e Number [facility] [address] LABS (ABNORMAL) Glucose by meter (02/06/2014 3:21 AM CDT) P athologist Signature Glucose 216 (H) 60 - 99 POINT OF CARE mg/dL TEST, GLUCOSE Specimen Anatomical Collection Method Collection Time Receive d Time (Source) Location / / Volume Laterality 02/06/2014 3:21 AM 4 3:25 CDT AM CDT Migel Merchant MD LAB - BEAKER POCT Performing Organization Address City/[facility]/ZIP Code Phon e Number FV POINT OF CARE TEST, GLUCOSE POINT OF CARE TEST, GLUCOSE (ABNORMAL) Hemoglobin (02/06/2014 1:02 AM CDT) P athologist Signature Hemoglobin 10.2 (L) 13.3 - [facility] 17.7 g/dL [place] LABS Specimen Anatomical Collection Method Collection Time Receive d Time (Source) Location / / Volume Laterality Blood specimen 02/06/2014 1:02 AM 014 1:11 (specimen) CDT AM CDT Deysi Alicea MD LAB - BLOOD ORDERABLES Performing Organization Address City/[facility]/ZIP Code Phon e Number [facility] [address] LABS (ABNORMAL) Glucose by meter (02/05/2014 [...] P athologist Signature Heparin 10A 0.64 IU/mL [facility] LABS Comment: Therapeutic Range: ?? UFH: [...] LAB - BLOOD ORDERABLES Performing Organization Address City/[facility]/ZIP Code Phon e Number [phone] [place] [address] LABS (ABNORMAL) Glucose by meter (02/05/2014 6:04 PM CDT) P athologist Signature Glucose 232 (H) 60 - 99 POINT OF CARE mg/dL TEST, GLUCOSE Specimen Anatomical Collection Method Collection Time Receive d Time (Source) Location / / Volume Laterality 02/05/2014 6:04 PM 4 6:10 CDT PM CDT Migel LARES - BEAKER POCT Performing Organization Address City/[facility]/ZIP Code Phon e Number FV POINT [...] LAB - BEAKER POCT Performing Organization Address [facility] Phon e Number FV POINT OF [...] LAB - BEAKER POCT Performing Organization Address [facility] Phon e Number FV POINT OF [...] LAB - BEAKER POCT Performing Organization Address [facility] Phon e Number FV POINT OF CARE TEST, GLUCOSE POINT OF CARE TEST, GLUCOSE (ABNORMAL) INR (02/05/2014 12:04 PM CDT) P athologist Signature INR 1.24 (H) 0.86 - 1.14 [facility] LABS Specimen Anatomical Collection Method Collection Time Receive d Time (Source) Location / / Volume Laterality Blood specimen 02/05/2014 12:04 4 (specimen) PM CDT 12:10 PM CDT Teresa Wright [facility] LAB - BLOOD ORDERABLES Performing Organization Address City/[facility] Phon e Number [facility] [address] LABS (ABNORMAL) CBC with platelets (02/05/2014 12:04 PM CDT) Patholo gist Method Time Signature WBC 7.4 4.0 - 11.0 [facility] 10e9/L [facility] LABS RBC Count 3.31 (L) 4.4 - 5.9 [facility] 10e12/L [facility] LABS Hemoglobin 10.3 (L) 13.3 - [facility] 17.7 g/dL [facility] LABS Hematocrit 31.0 (L) 40.0 - [facility] 53.0 % [facility] LABS MCV 94 78 - 100 [facility] fl [facility] LABS MCH 31.1 26.5 - [facility] 33.0 pg [facility] LABS MCHC 33.2 31.5 - [facility] 36.5 g/dL [facility] LABS RDW 14.7 10.0 - [facility] 15.0 % [facility] LABS Platelet Count 91 (L) 150 - 450 [facility] 10e9/L [facility] LABS Specimen Anatomical Collection Method Collection Time Receive d Time (Source) Location / / Volume Laterality Blood specimen 02/05/2014 12:04 4 (specimen) PM CDT 12:10 PM CDT Omaira Chavez PA-C LAB - BLOOD ORDERABLES Performing Organization Address City/[facility]/ZIP Code Phon e Number [phone] [place] [address] LABS (ABNORMAL) Glucose by meter (02/05/2014 11:25 [...] Basic metabolic panel (02/05/2014 7:02 AM CDT) [facility] gist Method Time Signature Sodium 143 133 - 144 [facility] mmol/L [facility] Potassium 4.3 3.4 - 5.3 [facility] mmol/L [facility] [place] [facility] Chloride 107 94 - 109 [facility] mmol/L [facility] LABS Carbon Dioxide 25 20 - 32 [facility] mmol/L [facility] LABS Anion Gap 10 6 - 17 [facility] mmol/L [facility] LABS Glucose 123 (H) 60 - 99 [facility] mg/dL [facility] LABS Urea Nitrogen 66 (H) 7 - 30 [facility] mg/dL [facility] LABS Creatinine 4.77 (H) 0.66 - [facility] 1.25 mg/dL [facility] [place] LABS GFR Estimate 12 (L) >60 [facility] mL/min/1.7 [facility] LABS GFR Estimate If 15 (L) >60 [facility] Black mL/min/1.7 [facility] LABS Calcium 9.4 8.5 - 10.4 [facility] mg/dL [facility] LABS Specimen Anatomical Collection Method Collection Time Receive d Time (Source) Location / / Volume Laterality Blood specimen 02/05/2014 7:02 AM 014 7:05 (specimen) CDT AM CDT Omaira Chavez PA-C LAB - BLOOD ORDERABLES Performing Organization Address City/[facility]/ZIP Code Phon e Number [address] LABS (ABNORMAL) Phosphorus (02/05/2014 7:02 AM CDT) P athologist Signature Phosphorus 5.7 (H) 2.5 - 4.5 [facility] mg/dL [place] LABS Specimen Anatomical Collection Method Collection Time Receive d Time (Source) Location / / Volume Laterality Blood specimen 02/05/2014 7:02 AM 014 7:05 (specimen) CDT AM CDT Omaira Chavez PA-C LAB - BLOOD ORDERABLES Performing Organization Address City/[facility]/ZIP Code Phon e Number [address] LABS Magnesium (02/05/2014 7:02 AM CDT) P athologist Signature Magnesium 2.0 1.6 - 2.3 [facility] mg/dL [place] LABS Specimen Anatomical Collection Method Collection Time Receive d Time (Source) Location / / Volume Laterality Blood specimen 02/05/2014 7:02 AM 014 7:05 (specimen) CDT AM CDT Omaira Chavze PA-C LAB - BLOOD ORDERABLES Performing Organization Address City/[facility]/ZIP Code Phon e Number [address] LABS (ABNORMAL) CBC with platelets differential (02/05/2014 7:02 AM CDT) Patholo gist Method Time Signature WBC 8.9 4.0 - [facility] 11.0 [facility] 10e9/L [place] LABS RBC Count 3.20 (L) 4.4 - 5.9 [facility] 10e12/L [facility] Hemoglobin 9.7 (L) 13.3 - [facility] 17.7 g/dL [facility] Hematocrit 30.0 (L) 40.0 - [facility] 53.0 % [facility] MCV 94 78 - 100 [facility] fl [facility] [place] [facility] MCH 30.3 26.5 - [facility] 33.0 pg [facility] MCHC 32.3 31.5 - [facility] 36.5 g/dL [facility] RDW 14.6 10.0 - [facility] 15.0 % [facility] Platelet Count 96 (L) 150 - 450 [facility] 10e9/L [facility] Diff Method Automated [facility] Method [facility] % Neutrophils 90.2 % [facility] % Lymphocytes 4.4 % [facility] % Monocytes 5.2 % [facility] LABS % Eosinophils 0.0 % [facility] % Basophils 0.0 % [facility] % Immature 0.2 % [facility] Granulocytes [facility] Absolute 8.1 1.6 - 8.3 [facility] Neutrophil 10e9/L [facility] Absolute 0.4 (L) 0.8 - 5.3 [facility] Lymphocytes 10e9/L [facility] Absolute 0.5 0.0 - 1.3 [facility] Monocytes 10e9/L [facility] Absolute 0.0 0.0 - 0.7 [facility] Eosinophils 10e9/L [facility] Absolute 0.0 0.0 - 0.2 [facility] Basophils 10e9/L [facility] Abs Immature 0.0 0 - 0.4 [facility] Granulocytes 10e9/L [facility] Specimen Anatomical Collection Method Collection Time Receive d Time (Source) Location / / Volume Laterality Blood specimen 02/05/2014 7:02 AM 014 7:05 (specimen) CDT AM CDT Omaira Chavez PA-C LAB - BLOOD ORDERABLES Performing Organization Address City/State/ZIP Code Phon e Number [facility] [address] [place] [address] [facility] LABS (ABNORMAL) Parathormone intact (02/05/2014 7:02 AM CDT) Patholo gist Method Time Signature Parathyroid 362 (H) 12 - 72 [facility] Hormone Intact pg/mL [facility] LABS Specimen Anatomical Collection Method Collection Time Receive d Time (Source) Location / / Volume Laterality Blood specimen 02/05/2014 7:02 AM 014 7:05 (specimen) CDT AM CDT Sina Robison MD LAB - BLOOD ORDERABLES Performing Organization Address City/[facility]/ZIP Code Phon e Number [facility] [address] LABS (ABNORMAL) Ferritin (02/05/2014 7:02 AM CDT) athologist Signature Ferritin 932 (H) 20 - 300 [facility] ng/mL [place] LABS Specimen Anatomical Collection Method Collection Time Receive d Time (Source) Location / / Volume Laterality Blood specimen 02/05/2014 7:02 AM 014 7:05 (specimen) CDT AM CDT Sina Robison MD LAB - BLOOD ORDERABLES Performing Organization Address City/State/ZIP Code Phon e Number [facility] [address] LABS (ABNORMAL) Iron and iron binding capacity (02/05/2014 7:02 AM CDT) Analysis Performed At Patho logist Time Signature Iron 119 35 - 180 [facility] ug/dL [facility] LAB[facility] Iron Binding 207 (L) 240 - 430 [facility] Cap ug/dL [facility] Iron Saturation 58 (H) 15 - 46 % [facility] Index [facility] LABS Specimen Anatomical Collection Method Collection Time Receive d Time (Source) Location / / Volume Laterality Blood specimen 02/05/2014 7:02 AM 014 7:05 (specimen) CDT AM CDT Sina Robison MD LAB - BLOOD ORDERABLES Performing Organization Address City/[facility]/ZIP Code Phon e Number [facility] [address] LABS (ABNORMAL) Glucose by meter (02/05/2014 [...] LAB - BEAJ POCT Performing Organization Address [facility] Code Phon e Number FV POINT OF [...] LARES - BEAJ POCT Performing Organization Address City/[facility] Code Phon e Number FV POINT OF [...] LARES - BEAJ POCT Performing Organization Address City/[facility] Code Phon e Number FV POINT OF [...] LAB - BEAJ POCT Performing Organization Address City/[facility] Phon e Number FV POINT OF [...] LAB - BEAJ POCT Performing Organization Address [facility] Phon e Number FV POINT OF [...] LAB - BEAJ POCT Performing Organization Address [facility] Phon e Number FV POINT OF [...] LARES - BEAJ POCT Performing Organization Address [facility] Phon e Number FV POINT OF [...] Carr MD ECG ORDERABLES Performing Organization Address [facility] Phon e Number RADIOLOGY RESULTS (ABNORMAL) Glucose by meter (02/04/2014 10:56 PM CDT) P athologist Signature Glucose 161 (H) 60 - 99 POINT OF CARE mg/dL TEST, GLUCOSE Specimen Anatomical Collection Method Collection Time Receive d Time (Source) Location / / Volume Laterality 02/04/2014 10:56 02/04/2014 PM CDT 11:00 PM CDT Migel LARES - ROBERT POCT Performing Organization Address [facility] Phon e Number FV POINT OF [...] LARES - ROBERT POCT Performing Organization Address [facility] Phon e Number FV POINT OF [...] CDT Migel JONES POCT Performing Organization Address [facility] Phon e Number FV POINT OF [...] athologist Signature Troponin I 0.016 0.000 - [facility] 0.034 ug/L [place] LABS Specimen Anatomical Collection Method Collection Time Receive d Time (Source) Location / / Volume Laterality Blood specimen 02/04/2014 7:10 PM 014 7:23 (specimen) CDT PM CDT Adeline Diaz MD LAB - BLOOD ORDERABLES Performing Organization Address City/[facility]/ZIP Code Phon e Number [phone] [place] [address] LABS (ABNORMAL) Glucose by meter (02/04/2014 7:01 [...] athologist Signature Troponin I 0.025 0.000 - [facility] 0.034 ug/L CAMPUS LABS Specimen Anatomical Collection Method Collection Time Receive d Time (Source) Location / / Volume Laterality Blood specimen 02/04/2014 12:42 4 (specimen) PM CDT 12:45 PM CDT Adeline Diaz MD LAB - BLOOD ORDERABLES Performing Organization Address City/State/ZIP Code Phon e Number [address] [address] [facility] LABS (ABNORMAL) Glucose by meter (02/04/2014 12:27 PM CDT) P athologist Signature Glucose 140 (H) 60 - 99 POINT OF CARE mg/dL TEST, GLUCOSE Specimen Anatomical Collection Method Collection Time Receive d Time (Source) Location / / Volume Laterality 02/04/2014 12:27 02/04/2014 PM CDT 12:30 PM CDT Migel Merchant MD LAB - BEAJ POCT Performing Organization Address [facility] Phon e Number FV POINT OF [...] LAB - BEAJ POCT Performing Organization Address [facility] Phon e Number FV POINT OF [...] LAB - BEAJ POCT Performing Organization Address [facility] Phon e Number FV POINT OF CARE TEST, GLUCOSE POINT OF CARE TEST, GLUCOSE EKG 12-lead, complete (02/04/2014 9:21 AM CDT) [facility] gist Method Time Signature Interpretation ECG Click View RADIOLOGY Image link RESULTS to view waveform and result Specimen (Source) Anatomical Collection Method Collection Time Re ceived Time Location / / Volume Laterality 02/04/2014 9:21 AM CDT Omaira Chavez PA-C ECG ORDERABLES Performing Organization Address [facility] Phon e Number RADIOLOGY RESULTS (ABNORMAL) Glucose by meter (02/04/2014 9:02 AM CDT) P athologist Signature Glucose 203 (H) 60 - 99 POINT OF CARE mg/dL TEST, GLUCOSE Specimen Anatomical Collection Method Collection Time Receive d Time (Source) Location / / Volume Laterality 02/04/2014 9:02 AM 4 9:05 CDT AM CDT Migel Merchant MD LAB - BEAKER POCT Performing Organization Address [facility] Phon e Number FV POINT OF [...] LAB - BEAJ POCT Performing Organization Address [facility] Phon e Number FV POINT OF [...] LAB - BEAJ POCT Performing Organization Address [facility] Phon e Number FV POINT OF CARE TEST, GLUCOSE POINT OF CARE TEST, GLUCOSE EKG 12-lead, complete (02/04/2014 7:03 AM CDT) [facility] Method Time Signature Interpretation ECG Click View RADIOLOGY Image link RESULTS to view waveform and result Specimen (Source) Anatomical Collection Method Collection Time Re ceived Time Location / / Volume Laterality 02/04/2014 7:03 AM CDT Caitlin Owens MD ECG ORDERABLES Performing Organization Address [facility] Phon e Number RADIOLOGY RESULTS (ABNORMAL) [...] Troponin I ES <0.012 0.000 - [facility] 0.034 ug/L CAMPUS LABS Specimen Anatomical Collection Method Collection Time Receive d Time (Source) Location / / Volume Laterality 02/04/2014 5:49 AM 4 5:51 CDT AM CDT Caitlin Owens MD LAB - BLOOD ORDERABLES Performing Organization Address City/State/ZIP Code Phon e Number [phone] [place] [address] [facility] LABS (ABNORMAL) Basic metabolic panel (02/04/2014 5:49 AM CDT) Patholo gist Method Time Signature Sodium 142 133 - 144 [facility] mmol/L [facility] Potassium 4.9 3.4 - 5.3 [facility] mmol/L [facility] Chloride 107 94 - 109 [facility] mmol/L [facility] [place] [facility] Carbon Dioxide 23 20 - 32 [facility] mmol/L [facility] [place] [facility] Anion Gap 12 6 - 17 [facility] mmol/L [facility] [place] [facility] Glucose 151 (H) 60 - 99 [facility] mg/dL [facility] Urea Nitrogen 57 (H) 7 - 30 [facility] mg/dL [facility] [place] [facility]S Creatinine 5.94 (H) 0.66 - [facility] 1.25 mg/dL [facility] [place] [facility]S GFR Estimate 10 (L) >60 [facility] mL/min/1.7 [facility] m2 CAMPUS LABS GFR Estimate If 12 (L) >60 [facility] Black mL/min/1.7 [place] m2 CAMPUS LABS Calcium 9.4 8.5 - 10.4 [facility] mg/dL [facility] LABS Specimen Anatomical Collection Method Collection Time Receive d Time (Source) Location / / Volume Laterality Blood specimen 02/04/2014 5:49 AM 014 5:51 (specimen) CDT AM CDT Omaira Chavez PA-C LAB - BLOOD ORDERABLES Performing Organization Address City/[facility]/ZIP Code Phon e Number [address] LABS (ABNORMAL) Phosphorus (02/04/2014 5:49 AM CDT) P athologist Signature Phosphorus 6.3 (H) 2.5 - 4.5 [facility] mg/dL [place] LABS Specimen Anatomical Collection Method Collection Time Receive d Time (Source) Location / / Volume Laterality Blood specimen 02/04/2014 5:49 AM 014 5:51 (specimen) CDT AM CDT Omaira Chavez PA-C LAB - BLOOD ORDERABLES Performing Organization Address City/[facility]/ZIP Code Phon e Number [address] LABS Magnesium (02/04/2014 5:49 AM CDT) athologist Signature Magnesium 2.1 1.6 - 2.3 [facility] mg/dL [place] LABS Specimen Anatomical Collection Method Collection Time Receive d Time (Source) Location / / Volume Laterality Blood specimen 02/04/2014 5:49 AM 014 5:51 (specimen) CDT AM CDT Omaira Chavez PA-C LAB - BLOOD ORDERABLES Performing Organization Address City/[facility]/ZIP Code Phon e Number [address] LABS (ABNORMAL) CBC with platelets differential (02/04/2014 5:49 AM CDT) [facility] Method Time Signature WBC 13.8 (H) 4.0 - [facility] 11.0 [place] 10e9/L [place] LABS RBC Count 3.10 (L) 4.4 - 5.9 [facility] 10e12/L [facility]S Hemoglobin 9.5 (L) 13.3 - [facility] 17.7 g/dL [facility]S Hematocrit 28.7 (L) 40.0 - [facility] 53.0 % [facility]S MCV 93 78 - 100 [facility] fl [facility] MCH 30.6 26.5 - [facility] 33.0 pg [facility]S MCHC 33.1 31.5 - [facility] 36.5 g/dL [facility] RDW 14.6 10.0 - [facility] 15.0 % [facility] Platelet Count 91 (L) 150 - 450 [facility] 10e9/L [facility]S Diff Method Automated [facility] Method [facility] LABS % Neutrophils 95.8 % [facility] LABS % Lymphocytes 1.2 % [facility] LABS % Monocytes 2.8 % [facility] LABS % Eosinophils 0.0 % [facility] % Basophils 0.0 % [facility] % Immature 0.2 % [facility] Granulocytes [facility] Absolute 13.2 (H) 1.6 - 8.3 [facility] Neutrophil 10e9/L [facility] Absolute 0.2 (L) 0.8 - 5.3 [facility] Lymphocytes 10e9/L [facility] Absolute 0.4 0.0 - 1.3 [facility] Monocytes 10e9/L [facility] Absolute 0.0 0.0 - 0.7 [facility] Eosinophils 10e9/L [facility] Absolute 0.0 0.0 - 0.2 [facility] Basophils 10e9/L [facility] LAB[facility] Abs Immature 0.0 0 - 0.4 [facility] Granulocytes 10e9/L [facility] Specimen Anatomical Collection Method Collection Time Receive d Time (Source) Location / / Volume Laterality Blood specimen 02/04/2014 5:49 AM 014 5:51 (specimen) CDT AM CDT Omaira Chavez PA-C LAB - BLOOD ORDERABLES Performing Organization Address City/State/ZIP Code Phon e Number [phone] [place] [address] LABS (ABNORMAL) Glucose by meter (02/04/2014 5:33 [...] LAB - BEAJ POCT Performing Organization Address [facility] Phon e Number FV POINT OF [...] LARES - ROBERT POCT Performing Organization Address [facility] Phon e Number FV POINT OF [...] LARES - ROBERT POCT Performing Organization Address [facility] Phon e Number FV POINT OF [...] athologist Signature Potassium 4.8 3.4 - 5.3 [facility] mmol/L CAMPUS LABS Specimen Anatomical Collection Method Collection Time Receive d Time (Source) Location / / Volume Laterality Blood specimen 02/03/2014 10:16 4 (specimen) PM CDT 10:19 PM CDT Caitlin Owens MD LAB - BLOOD ORDERABLES Performing Organization Address City/[facility]/ZIP Code Phon e Number [facility] [address] LABS (ABNORMAL) Hemoglobin (02/03/2014 10:16 PM CDT) athologist Signature Hemoglobin 9.4 (L) 13.3 - 17.7 [facility] g/dL CAMPUS LABS Specimen Anatomical Collection Method Collection Time Receive d Time (Source) Location / / Volume Laterality Blood specimen 02/03/2014 10:16 4 (specimen) PM CDT 10:19 PM CDT Caitlin Owens MD LAB - BLOOD ORDERABLES Performing Organization Address City/[facility]/ZIP Code Phon e Number [facility] [address] LABS (ABNORMAL) Glucose by meter (02/03/2014 9:55 PM CDT) P athologist Signature Glucose 167 (H) 60 - 99 POINT OF CARE mg/dL TEST, GLUCOSE Specimen Anatomical Collection Method Collection Time Receive d Time (Source) Location / / Volume Laterality 02/03/2014 9:55 PM 4 CDT 10:00 PM CDT Migel Merchant MD LAB - ROBERT POCT Performing Organization Address [facility]/ZIP Code Phon e Number FV POINT [...] LAB - ROBERT POCT Performing Organization Address [facility] Phon e Number FV POINT OF CARE TEST, GLUCOSE POINT OF CARE TEST, GLUCOSE (ABNORMAL) Glucose by meter (02/03/2014 8:06 PM CDT) P athologist Signature Glucose 128 (H) 60 - 99 POINT OF CARE mg/dL TEST, GLUCOSE Specimen Anatomical Collection Method Collection Time Receive d Time (Source) Location / / Volume Laterality 02/03/2014 8:06 PM 4 8:10 CDT PM CDT Migel Merhcant MD LAB - BEAJ POCT Performing Organization Address [facility] Phon e Number FV POINT OF [...] LAB - BEAJ POCT Performing Organization Address [facility] Phon e Number FV POINT OF CARE TEST, GLUCOSE POINT OF CARE TEST, GLUCOSE Potassium (02/03/2014 6:52 PM CDT) P athologist Signature Potassium 4.7 3.4 - 5.3 [facility] mmol/L CAMPUS LABS Specimen Anatomical Collection Method Collection Time Receive d Time (Source) Location / / Volume Laterality Blood specimen 02/03/2014 6:52 PM 014 6:53 (specimen) CDT PM CDT Caitlin Owens MD LAB - BLOOD ORDERABLES Performing Organization Address City/[facility]/ZIP Code Phon e Number [address] LABS (ABNORMAL) Hemoglobin (02/03/2014 6:52 PM CDT) athologist Signature Hemoglobin 9.6 (L) 13.3 - 17.7 [facility] g/dL CAMPUS LABS Specimen Anatomical Collection Method Collection Time Receive d Time (Source) Location / / Volume Laterality Blood specimen 02/03/2014 6:52 PM 014 6:53 (specimen) CDT PM CDT Caitlin Owens MD LAB - BLOOD ORDERABLES Performing Organization Address [facility] Code Phon e Number [phone] [place] [address] LABS (ABNORMAL) Glucose by meter (02/03/2014 6:00 PM CDT) athologist Signature Glucose 140 (H) 60 - 99 POINT OF CARE mg/dL TEST, GLUCOSE Specimen Anatomical Collection Method Collection Time Receive d Time (Source) Location / / Volume Laterality 02/03/2014 6:00 PM 4 6:05 CDT PM CDT Migel Merchant MD LAB - BEAKER POCT Performing Organization Address City/[facility]/ZIP Code Phon e Number FV POINT [...] athologist Signature Potassium 4.7 3.4 - 5.3 [facility] mmol/L CAMPUS LABS Specimen Anatomical Collection Method Collection Time Receive d Time (Source) Location / / Volume Laterality Blood specimen 02/03/2014 1:41 PM 014 1:43 (specimen) CDT PM CDT Caitlin Owens MD LAB - BLOOD ORDERABLES Performing Organization Address City/State/ZIP Code Phon e Number [phone] [place] [address] LABS (ABNORMAL) Hemoglobin (02/03/2014 1:41 PM CDT) P athologist Signature Hemoglobin 9.8 (L) 13.3 - 17.7 [facility] g/dL CAMPUS LABS Specimen Anatomical Collection Method Collection Time Receive d Time (Source) Location / / Volume Laterality Blood specimen 02/03/2014 1:41 PM 2 014 1:43 (specimen) CDT PM CDT Caitlin Owens MD LAB - BLOOD ORDERABLES Performing Organization Address City/State/ZIP Code Phon e Number [address] [address] [facility] LABS (ABNORMAL) Glucose by meter (02/03/2014 1:10 PM CDT) P athologist Signature Glucose 135 (H) 60 - 99 POINT OF CARE mg/dL TEST, GLUCOSE Specimen Anatomical Collection Method Collection Time Receive d Time (Source) Location / / Volume Laterality 02/03/2014 1:10 PM 4 1:15 CDT PM CDT Migel LARES - BEAJ POCT Performing Organization Address City/[facility]/ZIP Code Phon e Number FV POINT [...] athologist Signature Potassium 4.8 3.4 - 5.3 [facility] mmol/L CAMPUS LABS Specimen Anatomical Collection Method Collection Time Receive d Time (Source) Location / / Volume Laterality Blood specimen 02/03/2014 10:11 4 (specimen) AM CDT 10:23 AM CDT Caitlin Owens MD LAB - BLOOD ORDERABLES Performing Organization Address City/[facility]/ZIP Code Phon e Number [address] LABS (ABNORMAL) Hemoglobin (02/03/2014 10:11 AM CDT) P athologist Signature Hemoglobin 9.7 (L) 13.3 - 17.7 [facility] g/dL [place] LABS Specimen Anatomical Collection Method Collection Time Receive d Time (Source) Location / / Volume Laterality Blood specimen 02/03/2014 10:11 4 (specimen) AM CDT 10:23 AM CDT Caitlin Owens MD LAB - BLOOD ORDERABLES Performing Organization Address [facility] Phon e Number [address] LABS (ABNORMAL) Glucose by meter (02/03/2014 9:58 AM CDT) P athologist Signature Glucose 168 (H) 60 - 99 POINT OF CARE mg/dL TEST, GLUCOSE Specimen Anatomical Collection Method Collection Time Receive d Time (Source) Location / / Volume Laterality 02/03/2014 9:58 AM 4 CDT 10:00 AM CDT Migel Merchant MD LAB - BEAKER POCT Performing Organization Address City/[facility]/ZIP Code Phon e Number FV POINT [...] LAB - BEAKER POCT Performing Organization Address City/[facility]/ZIP Code Phon e Number FV POINT [...] LARES - ROBERT POCT Performing Organization Address City/[facility]/ZIP Code Phon e Number FV POINT [...] LARES - ROBERT POCT Performing Organization Address City/[facility]/ZIP Code Phon e Number FV POINT [...] Basic metabolic panel (02/03/2014 5:38 AM CDT) [facility] gist Method Time Signature Sodium 141 133 - 144 [facility] mmol/L [facility]S Potassium 4.4 3.4 - 5.3 [facility] mmol/L [facility] Chloride 105 94 - 109 [facility] mmol/L [facility] Carbon Dioxide 20 20 - 32 [facility] mmol/L [facility]S Anion Gap 15 6 - 17 [facility] mmol/L [facility] Glucose 170 (H) 60 - 99 [facility] mg/dL [facility] Urea Nitrogen 49 (H) 7 - 30 [facility] mg/dL [facility] Creatinine 6.38 (H) 0.66 - [facility] 1.25 mg/dL [facility] GFR Estimate 9 (L) >60 [facility] mL/min/1.7 [place] m2 [place] LABS GFR Estimate If 11 (L) >60 [facility] Black mL/min/1.7 [place] m2 CAMPUS LABS Calcium 9.1 8.5 - 10.4 [facility] mg/dL [facility] LABS Specimen Anatomical Collection Method Collection Time Receive d Time (Source) Location / / Volume Laterality Blood specimen 02/03/2014 5:38 AM 014 5:40 (specimen) CDT AM CDT Omaira Chavez PA-C LAB - BLOOD ORDERABLES Performing Organization Address City/[facility]/ZIP Code Phon e Number [facility] [address] LABS (ABNORMAL) Phosphorus (02/03/2014 5:38 AM CDT) P athologist Signature Phosphorus 4.7 (H) 2.5 - 4.5 [facility] [place] mg/dL [place] LABS Specimen Anatomical Collection Method Collection Time Receive d Time (Source) Location / / Volume Laterality Blood specimen 02/03/2014 5:38 AM 014 5:40 (specimen) CDT AM CDT Omaira Chavez PA-C LAB - BLOOD ORDERABLES Performing Organization Address City/State/ZIP Code Phon e Number [facility] [address] LABS Magnesium (02/03/2014 5:38 AM CDT) P athologist Signature Magnesium 2.0 1.6 - 2.3 [facility] [place] mg/dL [place] [facility] Specimen Anatomical Collection Method Collection Time Receive d Time (Source) Location / / Volume Laterality Blood specimen 02/03/2014 5:38 AM 014 5:40 (specimen) CDT AM CDT Omaira Chavez PA-C LAB - BLOOD ORDERABLES Performing Organization Address City/State/ZIP Code Phon e Number [phone] [place] [address] [facility] CBC with platelets differential (02/03/2014 5:38 AM CDT) [facility] gist Method Time Signature WBC 13.2 (H) 4.0 - [facility] 11.0 [facility] 10e9/L CAMPUS LABS RBC Count 3.20 (L) 4.4 - 5.9 [facility] 10e12/L [facility]S Hemoglobin 9.9 (L) 13.3 - [facility] 17.7 g/dL [facility]S Hematocrit 30.2 (L) 40.0 - [facility] 53.0 % [facility] MCV 94 78 - 100 [facility] fl [facility] MCH 30.9 26.5 - [facility] 33.0 pg [facility] MCHC 32.8 31.5 - [facility] 36.5 g/dL [facility] RDW 14.5 10.0 - [facility] 15.0 % [facility] Platelet Count 108 (L) 150 - 450 [facility] 10e9/L [facility] Diff Method Automated [facility] Method [facility] LAB[facility] % Neutrophils 96.9 % [facility] LABS % Lymphocytes 0.7 % [facility] LABS % Monocytes 2.1 % [facility] LABS % Eosinophils 0.0 % [facility] LABS % Basophils 0.1 % [facility] LABS % Immature 0.2 % [facility] Granulocytes [facility] Absolute 12.8 (H) 1.6 - 8.3 [facility] Neutrophil 10e9/L [facility] Absolute 0.1 (L) 0.8 - 5.3 [facility] Lymphocytes 10e9/L [facility] Absolute 0.3 0.0 - 1.3 [facility] Monocytes 10e9/L [facility] Absolute 0.0 0.0 - 0.7 [facility] Eosinophils 10e9/L [facility] Absolute 0.0 0.0 - 0.2 [facility] Basophils 10e9/L [facility] Abs Immature 0.0 0 - 0.4 [facility] Granulocytes 10e9/L [facility] LABS Specimen Anatomical Collection Method Collection Time Receive d Time (Source) Location / / Volume Laterality Blood specimen 02/03/2014 5:38 AM 014 5:40 (specimen) CDT AM CDT Omaira Chavez PA-C LAB - BLOOD ORDERABLES Performing Organization Address City/[facility]/ZIP Code Phon e Number [facility] [address] LABS (ABNORMAL) Hemoglobin A1c (02/03/2014 5:38 AM CDT) Analysis Performed At Patho logist Time Signature Hemoglobin A1C 6.2 (H) 4.3 - 6.0 [facility] LABS Specimen Anatomical Collection Method Collection Time Receive d Time (Source) Location / / Volume Laterality Blood specimen 02/03/2014 5:38 AM 014 5:40 (specimen) CDT AM CDT Caitlin Owens MD LAB - BLOOD ORDERABLES Performing Organization Address City/[facility]/ZIP Code Phon e Number [address] LABS (ABNORMAL) Glucose by meter (02/03/2014 5:05 AM CDT) P athologist Signature Glucose 176 (H) 60 - 99 POINT OF CARE mg/dL TEST, GLUCOSE Specimen Anatomical Collection Method Collection Time Receive d Time (Source) Location / / Volume Laterality 02/03/2014 5:05 AM 4 5:10 CDT AM CDT Migel Merchant MD LAB - BEAKER POCT Performing Organization Address City/[facility]/ZIP Code Phon e Number FV POINT [...] LAB - BEAKER POCT Performing Organization Address City/[facility]/ZIP Code Phon e Number FV POINT OF CARE TEST, GLUCOSE POINT OF CARE TEST, GLUCOSE (ABNORMAL) Glucose by meter (02/03/2014 2:00 AM CDT) athologist Signature Glucose 205 (H) 60 - 99 POINT OF CARE mg/dL TEST, GLUCOSE Specimen Anatomical Collection Method Collection Time Receive d Time (Source) Location / / Volume Laterality 02/03/2014 2:00 AM 4 2:05 CDT AM CDT Migle Merchant MD LAB - BEAKER POCT Performing Organization Address City/[facility]/ZIP Code Phon e Number FV POINT OF CARE TEST, GLUCOSE POINT OF CARE TEST, GLUCOSE Potassium (02/03/2014 1:18 AM CDT) athologist Signature Potassium 4.7 3.4 - 5.3 [facility] mmol/L CAMPUS LABS Specimen Anatomical Collection Method Collection Time Receive d Time (Source) Location / / Volume Laterality Blood specimen 02/03/2014 1:18 AM 014 1:20 (specimen) CDT AM CDT Caitlin Owens MD LAB - BLOOD ORDERABLES Performing Organization Address City/[facility]/ZIP Code Phon e Number [address] [address] [facility] LABS (ABNORMAL) Hemoglobin (02/03/2014 1:18 AM CDT) athologist Signature Hemoglobin 9.8 (L) 13.3 - 17.7 [facility] g/dL [place] LABS Specimen Anatomical Collection Method Collection Time Receive d Time (Source) Location / / Volume Laterality Blood specimen 02/03/2014 1:18 AM 014 1:20 (specimen) CDT AM CDT Caitlin Owens MD LAB - BLOOD ORDERABLES Performing Organization Address City/State/ZIP Code Phon e Number [facility] [address] [place] [address] [facility] LABS (ABNORMAL) Glucose by meter (02/03/2014 1:16 [...] LAB - BEAKER POCT Performing Organization Address City/[facility]/ZIP Code Phon e Number FV POINT [...] athologist Signature Phosphorus 4.4 2.5 - 4.5 [facility] mg/dL [place] LABS Specimen Anatomical Collection Method Collection Time Receive d Time (Source) Location / / Volume Laterality Blood specimen 02/02/2014 10:50 4 (specimen) PM CDT 11:06 PM CDT Caitlin Owens MD LAB - BLOOD ORDERABLES Performing Organization Address City/State/ZIP Code Phon e Number [facility] [address] [place] [address] [facility] LABS Magnesium (02/02/2014 10:50 PM CDT) P athologist Signature Magnesium 1.8 1.6 - 2.3 [facility] mg/dL CAMPUS LABS Specimen Anatomical Collection Method Collection Time Receive d Time (Source) Location / / Volume Laterality Blood specimen 02/02/2014 10:50 4 (specimen) PM CDT 11:06 PM CDT Caitlin Owens MD LAB - BLOOD ORDERABLES Performing Organization Address City/[facility]/ZIP Code Phon e Number [facility] [address] [place] [address] [facility] LABS (ABNORMAL) Basic metabolic panel (02/02/2014 10:50 PM CDT) [facility] Method Time Signature Sodium 138 133 - 144 [facility] mmol/L [facility] LABS Potassium 4.5 3.4 - 5.3 [facility] mmol/L [facility] LABS Chloride 104 94 - 109 [facility] mmol/L [facility] LABS Carbon Dioxide 25 20 - 32 [facility] mmol/L [facility] LABS Anion Gap 10 6 - 17 [facility] mmol/L [facility] LABS Glucose 134 (H) 60 - 99 [facility] mg/dL [facility] LABS Urea Nitrogen 44 (H) 7 - 30 [facility] mg/dL [facility] LABS Creatinine 6.14 (H) 0.66 - [facility] 1.25 mg/dL [facility] LABS GFR Estimate 9 (L) >60 [facility] mL/min/1.7 [place] m2 CAMPUS LABS GFR Estimate If 11 (L) >60 [facility] Black mL/min/1.7 [place] m2 CAMPUS LABS Calcium 8.8 8.5 - 10.4 [facility] mg/dL [facility] LABS Specimen Anatomical Collection Method Collection Time Receive d Time (Source) Location / / Volume Laterality Blood specimen 02/02/2014 10:50 4 (specimen) PM CDT 11:06 PM CDT Caitlin Owens MD LAB - BLOOD ORDERABLES Performing Organization Address City/State/ZIP Code Phon e Number [facility] [address] [place] [address] [facility] LABS (ABNORMAL) CBC with platelets differential (02/02/2014 10:50 PM CDT) Patholo gist Method Time Signature WBC 8.2 4.0 - [facility] 11.0 UNIV[facility]ITY 10e9/L [place] LABS RBC Count 3.34 (L) 4.4 - 5.9 [facility] 10e12/L [facility] LABS Hemoglobin 10.3 (L) 13.3 - [facility] 17.7 g/dL [facility] LABS Hematocrit 30.9 (L) 40.0 - [facility] 53.0 % [facility] LABS MCV 93 78 - 100 [facility] fl [facility] LABS MCH 30.8 26.5 - [facility] 33.0 pg [facility] LABS MCHC 33.3 31.5 - [facility] 36.5 g/dL [facility] LABS RDW 14.3 10.0 - [facility] 15.0 % [facility] LABS Platelet Count 79 (L) 150 - 450 [facility] 10e9/L [facility] LABS Diff Method Automated [facility] Method [facility] LABS % Neutrophils 96.7 % [facility] LABS % Lymphocytes 1.6 % [facility] LABS % Monocytes 1.2 % [facility] % Eosinophils 0.4 % [facility] LABS % Basophils 0.0 % [facility] % Immature 0.1 % [facility] Granulocytes [facility] LABS Absolute 7.9 1.6 - 8.3 [facility] Neutrophil 10e9/L [facility] LABS Absolute 0.1 (L) 0.8 - 5.3 [facility] Lymphocytes 10e9/L [facility] LABS Absolute 0.1 0.0 - 1.3 [facility] Monocytes 10e9/L [facility] LABS Absolute 0.0 0.0 - 0.7 [facility] Eosinophils 10e9/L [facility] LABS Absolute 0.0 0.0 - 0.2 [facility] Basophils 10e9/L [facility] LABS Abs Immature 0.0 0 - 0.4 [facility] Granulocytes 10e9/L [facility] LABS Specimen Anatomical Collection Method Collection Time Receive d Time (Source) Location / / Volume Laterality Blood specimen 02/02/2014 10:50 4 (specimen) PM CDT 11:06 PM CDT Caitlin Owens MD LAB - BLOOD ORDERABLES Performing Organization Address City/State/ZIP Code Phon e Number [facility] [address] [place] [address] [facility] (ABNORMAL) VENOUS PANEL (02/02/2014 10:09 PM CDT) Patholo gist Method Time Signature Ph Venous 7.31 (L) 7.32 - [facility] 7.43 pH [facility] LABS PCO2 Venous 52 (H) 40 - 50 [facility] mm Hg [facility] LABS PO2 Venous 34 25 - 47 [facility] mm Hg [facility] LABS Bicarbonate 26 21 - 28 [facility] Venous mmol/L [facility] LABS Base Deficit 0.3 mmol/L [facility] Venous [facility] LABS Comment: Reference range: -7.7 to 1.9 FIO2 45 [facility] LABS Sodium 137 133 - 144 mmol/L [facility] LABS Potassium 4.4 3.4 - 5.3 mmol/L [facility] LABS Hemoglobin 10.0 (L) 13.3 - 17.7 g/dL [facility] LABS Glucose 116 (H) 60 - 99 mg/dL [facility] LABS Calcium Ionized Whole Blood 4.8 4.4 - 5.2 mg/dL [facility] LABS Specimen Anatomical Collection Method Collection Time Receive d Time (Source) Location / / Volume Laterality 02/02/2014 10:09 02/02/2014 PM CDT 10:14 PM CDT Migel Merchant MD LAB - BLOOD ORDERABLES Performing Organization Address City/State/ZIP Code Phon e Number [address] LABS (ABNORMAL) Glucose by meter (02/02/2014 [...] Venous 7.35 7.32 - [facility] 7.43 pH [facility] LABS PCO2 Venous 50 40 - 50 mm [facility] Hg [facility] LABS PO2 Venous 46 25 - 47 mm [facility] Hg [facility] LABS Bicarbonate 28 21 - 28 [facility] Venous mmol/L [facility] LABS Base Excess 1.8 mmol/L [facility] Venous [facility] LABS Comment: Reference range: -7.7 to 1.9 FIO2 100% [facility] LABS Sodium 141 133 - 144 mmol/L [facility] LABS Potassium 3.7 3.4 - 5.3 mmol/L [facility] LABS Hemoglobin 10.3 (L) 13.3 - 17.7 g/dL [facility] LABS Glucose 76 60 - 99 mg/dL [facility] LABS Calcium Ionized Whole Blood 4.8 4.4 - 5.2 mg/dL [facility] LABS Specimen Anatomical Collection Method Collection Time Receive d Time (Source) Location / / Volume Laterality 02/02/2014 6:40 PM 4 6:44 CDT PM CDT Migel Merchant MD LAB - BLOOD ORDERABLES Performing Organization Address City/[facility]/ZIP Code Phon e Number [address] [address] [facility] LABS Glucose by meter (02/02/2014 5:11 [...] 3:50 CDT PM CDT Migel Merchant MD [facility] POCT Performing Organization Address City/State/ZIP [...] MARYELLEN Blood component (02/02/2014 2:07 PM CDT) [facility] Method Time Signature Unit Number [id number] [facility] LABS Blood Red Blood [facility] Component Cells [facility] Leukocyte [place] LABS Reduced Division 00 [facility] LABS Status of No longer THEBES Unit available [facility] 02/06/2014 HOSPITAL LAB 0300 Specimen Anatomical Collection Method Collection Time Receive d Time (Source) Location / / Volume Laterality 02/02/2014 2:07 PM 4 2:10 CDT PM CDT Caitlin Owens MD LABORATORY Performing Organization Address City/[facility]/ZIP Code Phon santino Acevedo [place] [address] [address] [place], [place] [address] [facility] LABS [facility] LAB Blood component (02/02/2014 2:07 PM CDT) [facility] gist Method Time Signature Unit Number [id number] [facility] LABS Blood Red Blood [facility] Component Cells [facility] LABS Reduced Division 00 [facility] LABS Status of No longer THEBES Unit available [facility] 02/06/2014 HOSPITAL LAB 0300 Specimen Anatomical Collection Method Collection Time Receive d Time (Source) Location / / Volume Laterality 02/02/2014 2:07 PM 4 2:10 CDT PM CDT Caitlin Owens MD LABORATORY Performing Organization Address City/[facility] Code Phon santino Acevedo [place] [address] [place], [place] [address] [facility] LAB ABO/Rh type and screen (02/02/2014 2:07 PM CDT) [facility] gist Method Time Signature Units Ordered 2 [facility] LABS ABO A [facility] LABS RH(D) Pos [facility] LABS Antibody Neg [facility] Screen [facility] LABS Test Valid [facility] Only At [facility] BLOOD BANK Center,Aide LAB w Hospital Specimen 02/05/2014 [facility] BLOOD BANK LAB Crossmatch Red Blood [facility] Cells [facility] LABS Specimen Anatomical Collection Method Collection Time Receive d Time (Source) Location / / Volume Laterality Blood specimen 02/02/2014 2:07 PM 014 2:10 (specimen) CDT PM CDT Caitlin Owens MD LAB - BLOOD BANK TEST ORDER Performing Organization Address City/[facility]/ZIP Code Phon e Number [facility] [address] [place] [address] [facility] LABS [facility] BLOOD BANK LAB (ABNORMAL) Lipid Profile (02/02/2014 2:07 PM CDT) P athologist Signature Cholesterol 135 <200 mg/dL [facility] LABS Comment: LDL Cholesterol is the primary guide to therapy. The NCEP recommends further evaluation of: patients with cholesterol greater than 200 mg/dL if additional risk facto rs are present, cholesterol greater than 240 mg/dL, triglycerides greater than 1 50 mg/dL, or HDL less than 40 mg/dL. Triglycerides 124 0 - 150 mg/dL [facility] LABS HDL Cholesterol 34 (L) >40 mg/dL [facility] LABS LDL Cholesterol Calculated 77 0 - 129 mg/dL [facility] LABS Comment: LDL Cholesterol is the primary guide to therapy: LDL-cholesterol goal in high risk patients is <100 mg/dL and in very high risk patients is <70 mg/dL. VLDL-Cholesterol 25 0 - 30 mg/dL [facility] LABS Cholesterol/HDL Ratio 4.0 0.0 - 5.0 [facility] LABS Specimen Anatomical Collection Method Collection Time Receive d Time (Source) Location / / Volume Laterality Blood specimen 02/02/2014 2:07 PM 014 2:08 (specimen) CDT PM CDT Caitlin Owens MD LAB - BLOOD ORDERABLES Performing Organization Address City/[facility]/ZIP Code Phon e Number [facility] [address] [place] [address] [facility] LABS (ABNORMAL) Hemoglobin A1c (02/02/2014 2:07 PM CDT) Analysis Performed At Patho logist Time Signature Hemoglobin A1C 6.2 (H) 4.3 - 6.0 [facility] LABS Specimen Anatomical Collection Method Collection Time Receive d Time (Source) Location / / Volume Laterality Blood specimen 02/02/2014 2:07 PM 014 2:08 (specimen) CDT PM CDT aCitlin Owens MD LAB - BLOOD ORDERABLES Performing Organization Address City/State/ZIP Code Phon e Number [facility] [address] [place] [address] [facility] LABS Hepatitis C antibody (02/02/2014 2:07 PM CDT) [facility] Signature Hepatitis C Negative NEG [facility] Antibody MICROBIOLOGY Specimen Anatomical Collection Method Collection Time Receive d Time (Source) Location / / Volume Laterality Blood specimen 02/02/2014 2:07 PM 02/02/2 014 2:08 (specimen) CDT PM CDT Caitlin Owens MD LAB - BLOOD ORDERABLES Performing Organization Address City/[facility]/ZIP Code Phon e Number [facility] [address] [place] [address] [facility] MICROBIOLOGY Hepatitis B core antibody IgM (02/02/2014 2:07 PM CDT) [facility] Signature Hepatitis B Negative NEG [facility] Core IgM MICROBIOLOGY Specimen Anatomical Collection Method Collection Time Receive d Time (Source) Location / / Volume Laterality Blood specimen 02/02/2014 2:07 PM 014 2:08 (specimen) CDT PM CDT Caitlin Owens MD LAB - BLOOD ORDERABLES Performing Organization Address City/State/ZIP Code Phon e Number [facility] [address] [place], [place] [id number] [place] [address] MICROBIOLOGY Hepatitis B surface antigen (02/02/2014 2:07 PM CDT) [facility] Signature Hep B Surface Negative NEG [facility] Agn MICROBIOLOGY Specimen Anatomical Collection Method Collection Time Receive d Time (Source) Location / / Volume Laterality Blood specimen 02/02/2014 2:07 PM 014 2:08 (specimen) CDT PM CDT Caitlin Owens MD LAB - BLOOD ORDERABLES Performing Organization Address City/[facility]/ZIP Code Phon e Number [facility] [address] [place], [place] [id number] [place] [address] MICROBIOLOGY HIV Antigen Antibody Combo (02/02/2014 2:07 PM CDT) [facility] Signature HIV Antigen Nonreactive NR [facility] Antibody HIV-1 p24 Ag & HIV-1/HIV-2 Ab Not Detected [facility] LABS Specimen Anatomical Collection Method Collection Time Receive d Time (Source) Location / / Volume Laterality Blood specimen 02/02/2014 2:07 PM 014 2:08 (specimen) CDT PM CDT Caitlin Owens MD LAB - BLOOD ORDERABLES Performing Organization Address City/[facility]/ZIP Code Phon e Number [address] LABS EBV Capsid Antibody IgM (02/02/2014 2:07 PM CDT) [facility] Method Time Signature EBV Capsid <0.2 0.0 - 0.8 [facility] Antibody IgM No detectable antibody. [facility] LABS Specimen Anatomical Collection Method Collection Time Receive d Time (Source) Location / / Volume Laterality Blood specimen 02/02/2014 2:07 PM 014 2:08 (specimen) CDT PM CDT Caitlin Owens MD LAB - BLOOD ORDERABLES Performing Organization Address [facility] Code Phon e Number [address] LABS (ABNORMAL) EBV Capsid Antibody IgG (02/02/2014 2:07 PM CDT) [facility] Method Time Signature EBV Capsid >8.0 0.0 - 0.8 [facility] Antibody IgG Positive, suggests recent or past exposure [facility] () [place] LABS Specimen Anatomical Collection Method Collection Time Receive d Time (Source) Location / / Volume Laterality Blood specimen 02/02/2014 2:07 PM 014 2:08 (specimen) CDT PM CDT Caitlin Owens MD LAB - BLOOD ORDERABLES Performing Organization Address City/[facility]/ZIP Code Phon e Number [address] LABS CMV antibody IgM (02/02/2014 2:07 PM CDT) [facility] Signature CMV Antibody <0.2 0.0 - 0.8 [facility] IgM Negative [facility] LABS Specimen Anatomical Collection Method Collection Time Receive d Time (Source) Location / / Volume Laterality Blood specimen 02/02/2014 2:07 PM 014 2:08 (specimen) CDT PM CDT Caitlin Owens MD LAB - BLOOD ORDERABLES Performing Organization Address City/[facility]/ZIP Code [place] [address] [facility] LABS (ABNORMAL) CMV Antibody IgG (02/02/2014 2:07 PM CDT) P athologist Signature CMV Antibody 7.8 (H) 0.0 - 0.8 [facility] IgG AI [facility] LABS Comment: Positive Specimen Anatomical Collection Method Collection Time Receive d Time (Source) Location / / Volume Laterality Blood specimen 02/02/2014 2:07 PM 014 2:08 (specimen) CDT PM CDT Caitlin Owens MD LAB - BLOOD ORDERABLES Performing Organization Address City/State/ZIP Code Phon e Number [facility] [address] [place] [address] [facility] LABS (ABNORMAL) Comprehensive metabolic panel (02/02/2014 2:07 PM CDT) Patholo gist Method Time Signature Sodium 141 133 - 144 [facility] mmol/L [facility] LABS Potassium 4.2 3.4 - 5.3 [facility] mmol/L [facility] LABS Chloride 101 94 - 109 [facility] mmol/L [facility] LABS Carbon Dioxide 26 20 - 32 [facility] mmol/L [facility] LABS Anion Gap 13 6 - 17 [facility] mmol/L [facility] LABS Glucose 112 (H) 60 - 99 [facility] mg/dL [facility] LABS Urea Nitrogen 42 (H) 7 - 30 [facility] mg/dL [facility] LABS Creatinine 6.03 (H) 0.66 - [facility] 1.25 UN[facility]ITY mg/dL CAMPUS LABS GFR Estimate 9 (L) >60 [facility] mL/min/1. [address] LABS GFR Estimate If 11 (L) >60 [facility] Black mL/min/1. [address] LABS Calcium 9.9 8.5 - [facility] 10.4 UNIVERSITY mg/dL CAMPUS LABS Bilirubin Total 0.7 0.2 - 1.3 [facility] mg/dL [facility] LABS Albumin 4.2 3.3 - 4.9 [facility] g/dL [facility] LABS Protein Total 7.5 6.8 - 8.8 [facility] g/dL [facility] LABS Alkaline 88 40 - 150 [facility] Phosphatase U/L [facility] LABS ALT 33 0 - 70 [facility] U/L [facility] LABS AST 18 0 - 45 [facility] U/L [facility] LABS Specimen Anatomical Collection Method Collection Time Receive d Time (Source) Location / / Volume Laterality Blood specimen 02/02/2014 2:07 PM 014 2:08 (specimen) CDT PM CDT Caitlin Owens MD LAB - BLOOD ORDERABLES Performing Organization Address City/State/ZIP Code Phon e Number [facility] [address] [place] [address] [facility] ([facility]NORMAL) CBC with platelets differential (02/02/2014 2:07 PM CDT) [facility] gist Method Time Signature WBC 6.3 4.0 - [facility] 11.0 UNIVERSITY 10e9/L CAMPUS LABS RBC Count 3.71 (L) 4.4 - 5.9 [facility] 10e12/L [facility] LABS Hemoglobin 11.5 (L) 13.3 - [facility] 17.7 g/dL [facility] LABS Hematocrit 33.7 (L) 40.0 - [facility] 53.0 % [facility] LABS MCV 91 78 - 100 [facility] fl [facility] LABS MCH 31.0 26.5 - [facility] 33.0 pg [facility] LABS MCHC 34.1 31.5 - [facility] 36.5 g/dL [facility] LABS RDW 14.0 10.0 - [facility] 15.0 % UN[facility]ITY [place] LABS Platelet Count 110 (L) 150 - 450 [facility] 10e9/L [facility] LABS Diff Method Automated [facility] Method [facility] LABS % Neutrophils 52.4 % [facility] LABS % Lymphocytes 32.1 % [facility] LABS % Monocytes 7.9 % [facility] LABS % Eosinophils 7.1 % [facility] LABS % Basophils 0.3 % [facility] LABS % Immature 0.2 % [facility] Granulocytes [facility] LABS Absolute 3.3 1.6 - 8.3 [facility] Neutrophil 10e9/L [facility] LABS Absolute 2.0 0.8 - 5.3 [facility] Lymphocytes 10e9/L [facility] LABS Absolute 0.5 0.0 - 1.3 [facility] Monocytes 10e9/L [facility] LABS Absolute 0.5 0.0 - 0.7 [facility] Eosinophils 10e9/L [facility] LABS Absolute 0.0 0.0 - 0.2 [facility] Basophils 10e9/L [facility] LABS Abs Immature 0.0 0 - 0.4 [facility] Granulocytes 10e9/L [facility] LABS Specimen Anatomical Collection Method Collection Time Receive d Time (Source) Location / / Volume Laterality Blood specimen 02/02/2014 2:07 PM 014 2:08 (specimen) CDT PM CDT Caitlin Owens MD LAB - BLOOD ORDERABLES Performing Organization Address City/[facility]/ZIP Code Phon e Number [address] LABS Creatinine urine calculation only (02/02/2014 2:00 PM CDT) P athologist Signature Creatinine 88 mg/dL [facility] Urine [place] LABS Specimen Anatomical Collection Method Collection Time Receive d Time (Source) Location / / Volume Laterality 02/02/2014 2:00 PM 4 2:12 CDT PM CDT Caitlin Owens MD LAB - URINE ORDERABLES Performing Organization Address City/[facility] Phon e Number [address] LABS (ABNORMAL) Urine culture (02/02/2014 2:00 PM CDT) Component Value Ref Test Analysis Performed At [facility] Range Method Time Signature Specimen Midstream Urine [facility] Description [facility] LABS Special Specimen received [facility] Requests in preservative MICROBIOLOGY Culture Micro <10,000 colonies/mL Gram pos itive cocci No further identification Susceptibility [facility] testing not routinely done [facility] CROBIOLOGY <10,000 colonies/mL Strain 2 Gram positive [...] MICRO GENERAL ORDERABL ES Performing Organization Address City/[facility]/ZIP Code Phon e Number [address] LABS [facility] MICROBIOLOGY (ABNORMAL) Protein random urine (02/02/2014 2:00 PM CDT) [facility] [place] Method Time Signature Protein Random 1.89 g/L [facility] Urine [facility] LABS Protein Total 2.15 (H) 0 - 0.2 [facility] Urine g/gr g/g Cr [facility] Creatinine CAMPUS LABS Specimen Anatomical Collection Method Collection Time Receive d Time (Source) Location / / Volume Laterality Urine specimen URINE SPECIMEN 02/02/2014 2:00 PM 02/02 2:12 (specimen) OBTAINED BY CLEAN CDT PM CDT CATCH PROCEDURE / Unknown Caitlin Owens MD LAB - URINE ORDERABLES Performing Organization Address City/[facility]/ZIP Code Phon e Number [address] LABS (ABNORMAL) Routine UA with microscopic (02/02/2014 2:00 PM CDT) Patholo gist Method Time Signature Color Urine Light Yellow [facility] LABS Appearance Urine Clear [facility] LABS Glucose Urine 70 (A) NEG mg/dL [facility] LABS Bilirubin Urine Negative NEG [facility] LABS Ketones Urine Negative NEG mg/dL [facility] [place] LABS Specific [place] 1.008 1.003 - [facility] Urine 1.035 UNIVERSITY [...] CAMPUS LABS Source Clean catch [facility] urine [facility] LABS WBC Urine 1 0 - [...] LAB - URINE ORDERABLES Performing Organization Address City/[facility]/ZIP Code Phon e Number [facility] [address] [place] [address] [facility] LABS (ABNORMAL) Glucose by meter (02/02/2014 1:59 PM CDT) P athologist Signature Glucose 115 (H) 60 - 99 POINT OF CARE mg/dL TEST, GLUCOSE Specimen Anatomical Collection Method Collection Time Receive d Time (Source) Location / / Volume Laterality 02/02/2014 1:59 PM 4 2:05 CDT PM CDT Migel Merchant MD LAB - BEAKER POCT Performing Organization Address City/[facility]/ZIP Code Phon e Number [facility] POINT OF CARE TEST, GLUCOSE POINT OF CARE TEST, GLUCOSE EKG 12-lead, tracing only (02/02/2014 1:58 PM CDT) [facility] gist Method Time Signature Interpretation ECG Click View RADIOLOGY Image link RESULTS to view waveform and result Specimen (Source) Anatomical Collection Method Collection Time Re ceived Time Location / / Volume Laterality 02/02/2014 1:58 PM CDT Caitlin Owens MD ECG ORDERABLES Performing Organization Address [facility] Phon e Number RADIOLOGY RESULTS documented in [...] dose, When verbally ordered by the prescriber. [place] throat with 1-4 sprays 5 minutes prior [...] 11:15 PM CDT 0.4 mg HYDROmorphone (DILAUDID) [employer]ER 1 mg/mL Shift Total 02/03/2014 6:24 AM CDT [employer] dose (mg): 0.1, Max [employer] MENDER dose (mg): 0.2, Lockout Interval (min): 10 minutes, [employer] M[employer]ER Continuous Rate (mg/hr): CONTINUOUS RATE IS NOT [...] dose, When verbally ordered by the prescriber. [place] throat with 1-4 sprays 5 minutes prior [...] Lashaun Braswell RN) 20 mg, Intravenous, ONCE, [facility] 02/07/14 at 1100, For 1 dose insulin [...] (Not Gi isael - Provider: Lynne Gatica [facility] - Reason: Other - Comment: Dose already [...] draw. documented in this encounter Care Teams Cash Register Servicer Relationship Specialty Start Date End Date Momo Forbes PCP - General Family Practice 01/02/14 [facility] [address] [place] [address] Ingrid Santana, RN Registered Nurse Transplant 02/10/12 10/01/15 documented as of this encounter
--- OUTSIDE RECORDS SUMMARY | 2022-04-14 11:12 | XMS_ITS | Encounter Summary ---
:1950 Author Organization [place] Address [address] [facility] [place] [address] Care Team Providers Name Role Phone Ingrid Santana RN Unavailable Momo Forbes Primary Care Provider Encounter Details Date Type Department Care Team Description 02/02/2014 Results Only LABORATORY RESULTS Migel Merchant MD [address] [place] [address] [address] [place] [address] (Wo rk) Social History Tobacco [...] II Single Antigen (02/02/2014 6:51 PM CDT) [facility] Method Time Signature SA2 Test SA [...] Phon e Number [facility] LABORAT[facility] Immunology/Histocompatabil [place], [place] [address] ity [facility] [address], Room 3-580 HISTOTRAC documented in this encounter Visit Diagnoses Not on filedocumented in this encounter Care Teams Glove Cuffer Relationship Specialty Start Date End Date Momo Forbes PCP - General Family Practice 01/02/14 [facility] [address] [place] [address] Ingrid Santana, RN Registered Nurse Transplant 02/10/12 10/01/15 documented as of this encounter
--- OUTSIDE RECORDS SUMMARY | 2022-04-14 11:12 | XMS_ITS | Encounter Summary ---
:1950 Author Organization [place] Address [facility] [place] [address] Care Team Providers Name Role Phone Ingrid Santana RN Unavailable Momo Forbes Primary Care Provider Encounter Details Date Type Department Care Team Description 02/02/2014 Results Only LABORATORY RESULTS Migel Merchant MD [address] [place] [address] (Wo rk) Social History Tobacco Use [...] T/B Crossmatch Auto (02/02/2014 6:51 PM CDT) [facility] Method Time Signature Crossmatch Donor:ELINOR GUTHRIE [...] Phon e Number [facility] LABORAT[facility] Immunology/Histocompatabil [place], [place] [address] [facility] [address], Room 3-580 HISTOTRAC documented in this encounter Visit Diagnoses Not on filedocumented in this encounter Care Teams Civil Laboratory Technician Relationship Specialty Start Date End Date Momo Forbes PCP - General Family Practice 01/02/14 [facility] [address] [place] [address] Ingrid Santana, RN Registered Nurse Transplant 02/10/12 10/01/15 documented as of this encounter
--- OUTSIDE RECORDS SUMMARY | 2022-04-14 11:12 | XMS_ITS | Encounter Summary ---
:1950 Author Organization [place] Address [facility] [place] [address] Care Team Providers Name Role Phone Ingrid Santana RN Unavailable Momo Forbes Primary Care Provider Reason for Visit Reason Comments Transplant Encounter Details Date Type Department Care Team Description 02/02/2014 Orders Only Transplant Surgery [place], End stage renal failure Clinic [facility] Mae on dialysis (H) 2nd Floor, Clinic 2A (Primary Dx) [address] [id number] Social History Tobacco Use Types Packs/Day Years [...] disease documented in this encounter Care Teams Ledger Clerk Relationship Specialty Start Date End Date Momo Forbes PCP - General Family Practice 01/02/14 [facility] [address] [place] [address] Ingrid Santana, RN Registered Nurse Transplant 02/10/12 10/01/15 documented as of this encounter
--- OUTSIDE RECORDS SUMMARY | 2022-04-14 11:12 | XMS_ITS | Encounter Summary ---
:1950 Author Organization [place] Address [address] [place] [address] Care Team Providers Name Role Phone Ingrid Santana RN Unavailable Momo Forbes Primary Care Provider Encounter Details Date Type Department Care Team Description 02/02/2014 Results Only LABORATORY RESULTS Migel Merchant MD [address] [place] [address] [address] [place] [address] (Wo rk) Social History Tobacco [...] I Single Antigen (02/02/2014 6:51 PM CDT) [facility] Method Time Signature SA1 Test SA [...] Phon e Number [facility] LABORATORY Immunology/Histocompatabil [place], [place] [address] [facility] [address], Room 3-580 HISTOTRAC documented in this encounter Visit Diagnoses Not on filedocumented in this encounter Care Teams Database Administrator Relationship Specialty Start Date End Date Momo Forbes PCP - General Family Practice 01/02/14 [facility] [address] [place] [address] Ingrid Santana, RN Registered Nurse Transplant 02/10/12 10/01/15 documented as of this encounter
--- OUTSIDE RECORDS SUMMARY | 2022-04-14 11:12 | XMS_ITS | Encounter Summary ---
:1950 Author Organization [place] Address [facility] [place] [address] Care Team Providers Name Role Phone Ingrid Santana RN Unavailable Momo Forbes Primary Care Provider Encounter Details Date Type Department Care Team Description 02/02/2014 Results Only LABORATORY RESULTS Migel Merchant MD [address] [place] [address] (Wo rk) Social History Tobacco Use [...] T/B Crossmatch Allo (02/02/2014 6:51 PM CDT) [facility] Method Time Signature Crossmatch Donor:[id number], ?Crossmatch Date:02/02/2014 HISTOTRAC Result (Note) Serum Date [...] - IMMUNOLOGY ORDERABLES Performing Organization Address City/State/ZIP [facility] Phon e Number [facility] HLA LABORATORY Immunology/Histocompatabil [place], [place] [address] ity [facility] [address], Room 3-580 HISTOTRAC documented in this encounter Visit Diagnoses Not on filedocumented in this encounter Care Teams Interior Specialist Relationship Specialty Start Date End Date Momo Forbes PCP - General Family Practice 01/02/14 [facility] [address] [place] [address] Ingrid Santana, RN Registered Nurse Transplant 02/10/12 10/01/15 documented as of this encounter
--- OUTSIDE RECORDS SUMMARY | 2022-04-14 11:13 | XMS_ITS | Encounter Summary ---
:1950 Author Organization [place] Address [address] [place] [address]. [place] [address] Care Team Providers Name Role Phone Ingrid Santana RN Unavailable Momo Forbes Primary Care Provider Reason for Visit Auth/Cert - Closed Specialty Diagnoses / Procedures Referred By Contact Refer red To Contact Med Surg Diagnoses end stage renal disease dialysis End stage renal failure on dialysis Renal Failure Uu U7a Procedures [facility] RECIPIENT DONOR [address] [place] [address] Phone: Referral ID Status Reason Start Date Expiration Date Visits Requ ested Visits Authorized [id number] Closed 02/04/2014 08/03/2014 1 1 Encounter Details Date Type Department Care Team Description 02/02/2014 Anesthesia Event [facility] Joseph Ivey MD XXX RESIGNED XXX [address] [place], [place] [phone] PeriOp Services Leigh Ann Blank MD [address] [facility] [address] [place] [address] 500 [place] [address] Anesthesia Record Procedure Summary Procedure [...] Hand Inez Mckeon Sara E RN Saima, WHARF TENDER RETIRED ETT 02/02/14; 1753; Airway 02/02/14 1753 [...] 10:56 PM CDT Anesthesia Post-Evaluation Note Patient: iDego Guthrie Patient location: PACU Procedure(s) Performed: Procedure(s) [...] Take 1 tablet by mouth daily. B wqphgpn-T-ialke acid (NEPHROCAPS) 1 MG capsule Take 1 [...] benefits and alternatives discussed with: patient or health and safety representative. Possibility of blood products discussed. I [...] plan were discussed with patient/family or family health and safety representative. All questions were answered and there was agreement to proceed. History & Physical Review Leigh Ann Blank MD Anesthesiology CA-2 [phone] 2:47 PM February 02, 2014 Diego Guthrie was seen and examined and the medical history was reviewed with him. The anesthetic plan was discussed, risks were explained and questions were answered. He agrees to proceed as discussed. I have reviewed this note and agree with the assessment and plan. Joseph Ivey M.D. Staff Anesthesiologist [phone] 02/02/2014 4:48 PM documented in this encounter [...] Date/Time Associated Diagnosis Comme nts [facility] AN [place] PA CENTRAL Routine 02/02/2014 6:19 PM Re [...] passed easily into [facility]. Hyunnarm Nazia DO [place] ANESTHESIA documented in this encounter Visit Diagnoses [...] Intra-op documented in this encounter Care Teams Solutions Architect Relationship Specialty Start Date End Date Momo Forbes PCP - General Family Practice 01/02/14 [facility] [address] [place] [address] Ingrid Santana, RN Registered Nurse Transplant 02/10/12 10/01/15 documented as of this encounter
--- OUTSIDE RECORDS SUMMARY | 2022-04-14 11:14 | XMS_ITS | Encounter Summary ---
:1950 Author Organization [place] Address [facility]0 [facility] [place] [address] Care Team Providers Name Role Phone Toña [...] on filedocumented in this encounter Care Teams Headhunter Relationship Specialty Start Date End Date Toña Jones MD PCP - General Nephrology 11/25/11 01/01/14 Momo Forbes PCP - General Family Practice 01/02/14 [facility] [address] [place] [address] Ingrid Santana, RN Registered Nurse Transplant 02/10/12 10/01/15 documented as of this encounter
--- OUTSIDE RECORDS SUMMARY | 2022-04-14 11:14 | XMS_ITS | Encounter Summary ---
:1950 Author Organization [place] Address [address] [place] [address] Care Team Providers Name Role Phone Toña Jones MD Primary Care Provider Ingrid Santana RN Unavailable Encounter Details Date Type Department Care Team Description 04/13/2012 Results Only LABORATORY RESULTS Mingo Dangelo MD [address] [facility] [address] [place] [address] (Wo rk) Social History Tobacco [...] Phon e Number [facility] LABORATORY Immunology/Histocompatabil [place], [place] [address] ity [facility] [address], Room [address]-580 HISTOTRAC documented in this encounter Visit Diagnoses Not on filedocumented in this encounter Care Teams Cleaning Team Member Relationship Specialty Start Date End Date Toña Jones MD PCP - General Nephrology 11/25/11 01/01/14 Ingrid Santana RN Registered Nurse Transplant 02/10/12 10/01/15 documented as of this encounter
--- OUTSIDE RECORDS SUMMARY | 2022-04-14 11:14 | XMS_ITS | Encounter Summary ---
:1950 Author Organization [place] Address [address] [place] [address] Care Team Providers Name Role Phone Toña Jones MD Primary Care Provider Ingrid Santana RN Unavailable Encounter Details Date Type Department Care Team Description 07/03/2012 Results Only LABORATORY RESULTS Barbara Bradley MD [address] [place], [place] [address] Social History Tobacco Use [...] HLA Lukasz Class I Single Antigen (07/03/2012) [facility] gist Method Time Signature SA1 Test [...] / Volume Laterality 07/03/2012 07/05/2012 1:57 PM EMAIL DEVELOPER Barbara Bradley MD LAB - IMMUNOLOGY ORDERABLES Performing Organization Address City/State/ZIP Code Phon e Number [facility] HLA LABORATORY Immunology/Histocompatabil [place], [place] [address] ity [facility] [address], Room [address]-580 HISTOTRAC documented in this encounter Visit Diagnoses Not on filedocumented in this encounter Care Teams Counter Sales Person Relationship Specialty Start Date End Date Toña Jones MD PCP - General Nephrology 11/25/11 01/01/14 Ingrid Santana RN Registered Nurse Transplant 02/10/12 10/01/15 documented as of this encounter
--- OUTSIDE RECORDS SUMMARY | 2022-04-14 11:14 | XMS_ITS | Encounter Summary ---
:1950 Author Organization [place] Address [facility] [place] [address] Care Team Providers Name Role Phone Toña [...] HLA Lukasz Class II Single Antigen (04/16/2013) [facility] gist Method Time Signature SA2 Test [...] Phon e Number [facility] LABORATORY Immunology/Histocompatabil [place], [place] [address] [facility] [address], Room [address]-580 HISTOTRAC documented in this encounter Visit Diagnoses Not on filedocumented in this encounter Care Teams Renewals Specialist Relationship Specialty Start Date End Date Toña Jones MD PCP - General Nephrology 11/25/11 01/01/14 Ingrid Santana RN Registered Nurse Transplant 02/10/12 10/01/15 documented as of this encounter
--- OUTSIDE RECORDS SUMMARY | 2022-04-14 11:14 | XMS_ITS | Encounter Summary ---
:1950 Author Organization [place] Address [address] [place] [address] Care Team Providers Name Role Phone Toña Jones MD Primary Care Provider Ingrid Santana RN Unavailable Encounter Details Date Type Department Care Team Description 07/30/2013 Results Only LABORATORY RESULTS Mingo Dangelo MD [address] [facility] [address] [place] [address] (Wo rk) Social History Tobacco [...] HLA Lukasz Class I Single Antigen (07/30/2013) [facility] Method Time Signature SA1 Test Single Antigen [...] / Volume Laterality 07/30/2013 07/31/2013 2:10 PM MEDICARE SPECIALIST Mingo Dangelo MD LAB - IMMUNOLOGY ORDERABLES Performing Organization Address City/State/ZIP Code Phon e Number [facility] HLA LABORATORY Immunology/Histocompatabil [place], [place] [address] ity [facility] [address], Room [address]-580 HISTOTRAC documented in this encounter Visit Diagnoses Not on filedocumented in this encounter Care Teams Desk Maker Relationship Specialty Start Date End Date Toña Jones MD PCP - General Nephrology 11/25/11 01/01/14 Ingrid Santana RN Registered Nurse Transplant 02/10/12 10/01/15 documented as of this encounter
--- OUTSIDE RECORDS SUMMARY | 2022-04-14 11:14 | XMS_ITS | Encounter Summary ---
:1950 Author Organization [place] Address [address] [place] [address] Care Team Providers Name Role Phone Ingrid Santana RN Unavailable Momo Forbes Primary Care Provider Reason for Visit Auth/Cert - Closed Specialty Diagnoses / Procedures Referred By Contact Refer red To Contact Med Surg Diagnoses end stage renal disease dialysis End stage renal failure on dialysis Renal Failure Uu U7a Procedures TRANSPLANT KIDNEY RECIPIENT DONOR [address] [place] [address] Phone: Referral ID Status Reason Start Date Expiration Date Visits Requ ested Visits Authorized [id number] Closed 02/04/2014 08/03/2014 1 1 Encounter Details Date Type Department Care Team Description 02/02/2014 Surgery [facility] Migel Merchant , Kidney Transplant , PeriOp Services ureteral stent [address] [place] [address] [place] [address] [place], [place] [address] (Wo rk) Surgery Details Date/Time Status Location [...] Physician Discharge Summary Patient ID: Diego Guthrie [id number] 63 year old 1950 Admit date: 02/02/2014 [...] Take 1 tablet by mouth daily. B rkcdlhr-H-pchoo acid (NEPHROCAPS) 1 MG capsule Take 1 [...] located on the second floor of the [facility] next to the Transplant Clinic. Your [...] of these appointments you will meetwith a hospitality intern and meet your transplant worker. Your nurse will also be in communication with your surgeon and hospitality intern as needed. The direct number to the [facility] is [phone]. In the [facility] [...] hospital. This will be located in [facility] transplant surgery clinic on the second floor.Your transplant surgeon is: Dr. Merchant. You have a ureteral stent in place which needs to be removed in 4-6 weeks. If a building maintenance worker does not contact you for this, please contact your transplant worker. If you have modesta in place, they will be removed in 3 weeks after operation. Notify your coordinator if you have pain over your kidney, fever greater than 101.5F, or decreased urine output. Notify your coordinator immediately if you are ever unable to take your immunosuppressive medications for any reason. Systems Technologist [phone] Diet recommendations post-transplant: Heart healthy dietary habits intermodal dispatcher (low saturated/trans fat, low sodium). High protein [...] >2. He can be seen by any principal product manager in the outpatient setting for coordination. Continue metoprolol 25 po bid until he is r e-evaluated. We did attempt inpatient REFUGIO guided cardioversion, but the patient developed significant bleeding while on heparin. José Miugel Alvarez M.D. Transit Worker Joseph Quintana MD - 02/08/2014 12:35 PM [...] Dr. Quintana. Sina Robison MD Nephrology Fellow [phone] Attestation: This patient has been seen and [...] Ramires RN - 02/07/2014 2:25 PM CDT Air And Water Filler D: Diego Guthrie 63 year old male POD #5 s/p DDKT for ESRD 2/[address] Diaz note today. Per Dr Diaz, pt will most likely be ready for d/c to home tomorrow and will return to [facility] for 5 days at 0700. [...] him. Pt does not know where the [facility] or transplant clinic is, I told him and he replied I will find it. Pt does not care which [facility] agency will follow him--There are only 2 to choose from, so [phone]/ --I called and left a message with Estrella Fletcher and I fax'd his records tothem--pt will need start of care approx Thursday 02/15. Pt is new on warfarin and I called his PCP's office and they have INR nurses Tuesday-Tuesday their fax # is [phone] (when HHN visits are completed --pt will call main clinic # to schedule INR draws). 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 I verified his address and phone #(is his cell) on the facesheet. Pt has not met his OP respiratory care program director: Leandro Kahn, yet--I sent Leandro an in [employer] message today-with plan. A: possible d/c to home Tuesday P: see above-will follow and will call [facility] to confirm they can accept [...] Dr. Quintana. Sina Robison MD Nephrology Fellow [phone] Attestation: This patient has been seen and [...] assistance Medical Decision Making: Medium Subsequent visit [id number] (moderate level decision making) PATO/Fellow/Resident Provider: Adeline [...] Rodriguez MD - 02/06/2014 4:25 PM CDT [facility] Cardiology Progress Note I have seen and [...] Dr. Quintana. Sina Robison MD Nephrology Fellow [phone] Attestation: This patient has been seen and [...] focal deficit No pronator drift. Tremorabsent. Line: [facility] Data: CMP Recent Labs Lab 02/06/14 0557 [...] Dr. Quintana. Sina Robison MD Nephrology Fellow [phone] Attestation: This patient has been seen and [...] Kahn RN - 02/05/2014 4:47 PM CDT RECYCLING MANAGER NOTE I met with the patient and his yesterday at [facility] PCU-6B (telemetry unit) to discuss transition from inpatient to outpatient care following kidney translantation. 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 He has slow graft function; however, his [...] the plan for daily visits to the [facility] for 5 days after discharge [...] meet with the patient again in the [facility] following discharge from [facility]. Joseph Rodriguez MD - 02/05/2014 11:16 AM CDT [facility] Cardiology Progress Note I have seen and [...] plan for REFUGIO cardioversion tomorrow, NPO at [place] (orders placed) -- continue heparin and initiate [...] kidney on 02/02/2014. Pt lives alone in [facility] though reports that his girlfriend in in the process of moving in with him. Pt girlfriend, Tete, will be present when pt returns home but she works timekeeper supervisor. Pt was on dialysis for 2 1/2 years prior to transplant. Pt works independently but reports that he currently has no income coming in. Pt has primary insurancethrough Medicare and Secondary insurance through [employer]. Pt has no co-pays for his immunosuppressants and a high out of pocket cost for Valcyte, SW to look into grants for pt for Valcyte. I: Met with pt to introduce this property underwriter and explain sw role and services available while inpatient in the hospital. Asked if pt had any questions or concerns and completed an assessment of psychosocialneeds post transplant. Provided education about expectations and requirements post discharge like fol low up in the [facility]. Pt is unsure yet if [...] needs arise prior to discharge. CECY Kearns, FLATBED TRUCK DRIVER Indu Calixto MD - 02/05/2014 1:50 AM [...] Adds Type of Visit Initial PT Evaluation Stave Inspector Stave Inspector Present no Language [place] Living Environment (R) Lives With alone Living Arrangements ([facility]) Home Accessibility no concerns Number of [...] up when pt is available. CECY Kearns, FLATBED TRUCK DRIVER [phone] phone [phone] pager Joseph Quintana MD - 02/04/2014 11:51 [...] Dr. Quintana. Sina Robison MD Nephrology Fellow [phone] Attestation: This patient has been seen and [...] for this basename: PTHI, in the last 36849 hours IRON STUDIES No results found for this basename: IRON, FEB, IRONSAT, THEE, in the last 30583 hours Imaging: All imaging studies reviewed by [...] or equal to 12.0 mlU/mL. Adeline Diaz [phone] Attestation: The patient has been seen and [...] donor kidney transplant, with stent on 02/02/14. ELECTRIC MOTOR ASSEMBLER donor. Graft function:uncertain, Cr slightly up. Slow [...] . Medical Decision Making: Medium Subsequent visit 66596 (moderate level decision making) PATO/Fellow/Resident Provider: Caitlin [...] note and orders. Migel Merchant MD, PhD dean for student affairs Abdominal Organ Transplantation Carmelita Rosario, BOGDAN - 02/03/2014 9:38 AM CDT Patient removed from the UNOS waitlist after donor kidney transplant. UNOS ID is [id number]. Rafaela Cardona - 02/03/2014 9:17 AM CDT [...] followed general diet. Patient reports good appetite/intake LAWNMOWER REPAIR MECHANIC, no nutrition issues/concnerns. CURRENT NUTRITION ORDERS - [...] DDKT ASSESSED NUTRITION NEEDS: Estimated Energy Needs: 5595-9852+ kcals (25-30+ Kcal/Kg) Justification: maintenance post-transplant Estimated [...] (6- 8 weeks). Rec follow heart-healthy diet intermodal dispatcher. Implementation Nutrition education: Provided instruction on post-transplant diet with discussion regarding protein sources and high protein needs in acute post-tx phase. Reviewed recommendations to follow low fat/lowsodium diet intermodal dispatcher and discussed heart healthy diet tips. Discussed [...] adjustment. Rafaela Cardona RD, LD Weekend Coverage [phone] Jose Aguirre MD - 02/03/2014 4:57 AM [...] Doing well postoperatively. Pain: Controlled by Dilaudid SUPERVISOR CONCRETE PIPE PLANT Diet: NPO tonight Volume Status: Borderline low UOP, continue MIVF, 0.9 % NS 500 cc bolus given for low UOP, CVP not accurate, systolic in 100-110 Recheck hemoglobin and potassium normal. Rest of the plan per primary team. Will continue to follow. Jose Aguirre MD PGY-1.................02/03/2014 Surgery Cross Cover Pager:[phone] documented in this encounter H&P Notes Caitlin [...] 1 tablet by mouth daily. ??? 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 Kidney bx [...] note and orders. Migel Merchant MD, PhD dean for student affairs Abdominal Organ Transplantation documented in this encounter Consult Notes Joseph Rodriguez MD - 02/04/2014 11:03 AM CDTAssociated Order(s): CARDIOLOGY IP CONSULT [facility] CARDIOLOGY CONSULT SERVICE INITIAL CONSULT NOTE February [...] 1 tablet by mouth daily. ??? 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 José Miguel Alvarez MD Transit Worker Pager: [phone] February 04, 2014 Kaitlynn Leon MD - 02/03/2014 9:30 AM CDT Nephrology Initial Consult February 03, 2014 Diego Guthrie Date of : 1950 Date of Admission:02/02/2014 Primary care provider: Momo Forbes Requesting physician: Migel Merchant MD ASSESSMENT AND RECOMMENDATIONS: 1. DDKT - ELECTRIC MOTOR ASSEMBLER -59 yo women; slow graft function-no immediate need for dialysis , but may require tomorrow if UO does not chart picker. We will monitor Induction with Thymo/Cellcept [...] h/o type 2 Dm, who received DDKT (ELECTRIC MOTOR ASSEMBLER) on 02/02/2014 donor kidney had severe atherosclerotic [...] ??? Cataract iol, rt/lt both eyes MEDICATIONS: LAWNMOWER REPAIR MECHANIC Meds Prior to Admission medications Medication Sig Last Dose Taking? Auth Provider Calcium Carbonate-Vitamin D (CALCIUM + D PO) Take by mouth daily. Reported, Patient lisinopril (PRINIVIL,ZESTRIL) 40 MG tablet Take 40 mg by mouth 2 times daily. Reported, Patient METOPROLOL SUCCINATE PO Take by mouth daily. Reported, Patient aspirin 81 MG tablet Take 1 tablet by mouth daily. Reported, Patient B fnzgswu-K-ikwxq acid (NEPHROCAPS) 1 MG capsule Take 1 [...] Intravenous Central line Once ??? HYDROmorphone Intravenous SUPERVISOR CONCRETE PIPE PLANT Infusion Meds ??? 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 Alvin Diego Cardiovascular Disease Fellow [phone] Patient seen and examined by me with [...] Cullen MD, PhD Jarad Cullen MD, PhD [phone] documented in this encounter Nursing Notes Gretta Mary RN - 02/02/2014 11:[address] Owens with Transplant Surgery notified of stat lab results. Magnesium replaced. Dr. Blank with Anesthesia reviewed chest x-ray. CVC not deep enough to give accurate CVP readings, however all lumens aspirate blood well. Patient is ok to transfer to unit 6B per [facility]. documented in this encounter Miscellaneous Notes Plan of Care - Amanda Hernandez RN - 02/08/2014 3:44 PM CDT Problem: IP GENERAL POC-ADULT,OB,BEHAVIORAL FVCPM Goal: Individualization/Patient-Specific Goal (Adult,OB,Behavioral The patient and/or their account manager sales representative will achieve their patient-specific goals [...] Card updated. Report called to Saima in [facility]. Left facility accompanied by s.o at 1600. Plan of Care - Amanda Hernandez RN - 02/08/2014 2:13 PM CDT Problem: IP GENERAL POC-ADULT,OB,BEHAVIORAL FVCPM Goal: Individualization/Patient-Specific Goal (Adult,OB,Behavioral The patient and/or their account manager sales representative will achieve their patient-specific goals [...] Goal (Adult,OB,Behavioral The patient and/or their account manager sales representative will achieve their patient-specific goals [...] Goal (Adult,OB,Behavioral The patient and/or their account manager sales representative will achieve their patient-specific goals [...] Diet recommendations post-transplant: Heart healthy dietary habits intermodal dispatcher (low saturated/trans fat, low sodium). High protein diet x 8 weeks. Practice food safety precautions - no fish/seafood x 3 weeks. Inez Luevano MS, RD, LD Pager [phone] Pharmacy-Immunosuppression Monitoring - Em Vasquez [facility] - 02/07/2014 9:06 AM CDT Tacrolimus Monitoring [...] will continue to follow. Em Vasquez, Pharm.D., [facility] Pager [phone] Plan of Care - Annmarie Colby RN - 02/07/2014 5:11 AM CDT Problem: IP GENERAL POC-ADULT,OB,BEHAVIORAL FVCPM Goal: Individualization/Patient-Specific Goal (Adult,OB,Behavioral The patient and/or their account manager sales representative will achieve their patient-specific goals [...] Goal (Adult,OB,Behavioral The patient and/or their account manager sales representative will achieve their patient-specific goals [...] increased fluid intake, urine color is becoming business banking representative( tea color/bloody- >dark sy/tea color). Incisional pain [...] Therapy Goals The patient and/or their account manager sales representative will achieve their patient-specific goals [...] Therapy Goals The patient and/or their account manager sales representative will achieve their patient-specific goals [...] Goal (Adult,OB,Behavioral The patient and/or their account manager sales representative will achieve their patient-specific goals [...] Goal (Adult,OB,Behavioral The patient and/or their account manager sales representative will achieve their patient-specific goals [...] Therapy Goals The patient and/or their account manager sales representative will achieve their patient-specific goals [...] at this time. Pharmacy - Cayetano Olivera, [facility] - 02/05/2014 12:26 PM CDT Visited 02/05/2014 in hospital room prior to discharge to review medications, review discharge process and review specialty pharmacy program. Med Review: Reviewed patient's medications and medical conditions. Patient would like to use [facility] to manage all medications. Medcard: [...] Specialty Pharmacy review: Discussed the benefits of [facility] and Diego has enrolled. Also gave him supplies (blood pressure cuff, thermometer, and pill box) Other concerns: No other concerns at this time. No further questions for this pharmacist. Inez Cox, Student Pharmacist Projector Operator [facility] [address] [place] [address] Cayetano Olivera, Pharmacist [facility] [phone] Pharmacy-Anticoagulation Service - Teresa Wright [facility] - 02/05/2014 11:29 AM CDT Clinical Pharmacy- [...] Goal (Adult,OB,Behavioral The patient and/or their account manager sales representative will achieve their patient-specific goals [...] melonie hard time making full sentences. When property underwriter came on shift at 8pm patient was [...] Goal (Adult,OB,Behavioral The patient and/or their account manager sales representative will achieve their patient-specific goals [...] Therapy Goals The patient and/or their account manager sales representative will achieve their patient-specific goals [...] by friend. Pt transferred to chair, VSS, saw setter on, oriented to room. Pharmacy-Admission Medication History - Teresa Wright, [facility] - 02/04/2014 11:54 AM CDT Admission medication history interview status for the 02/02/2014 admission is complete. See [facility] admission navigator for allergy information, prior to admission medications and immunization status. Medication history interview sources (including written lists, pill bottles, clinic record):Patient Medication history source reliability:Good Primary pharmacy:[facility] phone number: [phone] Changes made to LAWNMOWER REPAIR MECHANIC medication list (reason) Added: Vitamin D 1,000 [...] at Unknown time Yes Reported, Patient B oeqaetp-A-hgroq acid (NEPHROCAPS) 1 MG capsule Take 1 [...] Goal (Adult,OB,Behavioral The patient and/or their account manager sales representative will achieve their patient-specific goals [...] 45 minutes and remains in A-fib via hospital nurse liaison. Repeat EKG around 1000 showed continued Afibl. [...] Therapy Goals The patient and/or their account manager sales representative will achieve their patient-specific goals related to the plan of care. The patient-specific goals include: PT 7A: HOLD for AM per RN - pt with a-fib this morning. Plan of Care - Alisson Diane RN - 02/04/2014 6:45 AM CDT Problem: IP GENERAL POC-ADULT,OB,BEHAVIORAL FVCPM Goal: Individualization/Patient-Specific Goal (Adult,OB,Behavioral The patient and/or their account manager sales representative will achieve their patient-specific goals [...] Goal (Adult,OB,Behavioral The patient and/or their account manager sales representative will achieve their patient-specific goals [...] to yellow. Pharmacy-Transplant Note - Davina Schuster [facility] - 02/03/2014 4:28 PM CDT Adult Kidney [...] Goal (Adult,OB,Behavioral The patient and/or their account manager sales representative will achieve their patient-specific goals related to the plan of care. The patient-specific goals include: 1. Pt will remain hemodynamically stable 2. Pt will have adequate urine output 3. Pt will be free of falls. RD Patient will verbalize understanding of 3 important aspects of post-transplant diet guidelines. PO intake >50% meals TID once diet adv. Report taken from [facility] on 6B; patient transferred to from 6B via wheelchair around 1500. Patientsettled into room, oriented to floor/room and call light. VS taken. Orders released. Continue ordersas written and notify MD with any concerns. Plan of Care - Sofie Christianson RN - 02/03/2014 2:59 PM CDT Problem: IP GENERAL POC-ADULT,OB,BEHAVIORAL FVCPM Goal: Plan of Care Review (Adult,OB,Behavioral) The patient and/or their account manager sales representative will communicate an understanding of [...] algorithm 2, 1 unit now. Pt still [id number] NC to maintain sats above 90 % [...] Goal (Adult,OB,Behavioral The patient and/or their account manager sales representative will achieve their patient-specific goals [...] Intermittent sharp R lower abd pain. Dilaudid SUPERVISOR CONCRETE PIPE PLANT encouraged, increased to 0.2/10/1.2. R lower abd [...] 0200 made 20cc/hr, at 0300 made 30cc/hr. [place]/red tinged urine. MIVF @ 125/hr. VSS. HR 70s, BPs 100s-120s/60s. No new orders at this time. Will continue to monitor. Plan of Care - Tasia Andrade, RN - 02/03/2014 12:00 AM CDT Pt arrived to from PACU, s/p DDKT. A&O x3-4. VSS. [place]/red urine output. Small amt drainage on abd [...] to Type 2 Diabetes. The [facility] Donor ELECTRIC MOTOR ASSEMBLER (expanded criteria donor) kidney transplant. After discussing [...] The UNOS number of the donor is [id number]. The crossmatch was done prospectively; and the [...] reconstruction. FACULTY SURGEON: Migel Merchant M.D., Ph.D. FELLOW/INFORMATICS MANAGER SURGEON: Caitlin Owens MD fellow ANESTHESIA: None VERIFICATION: Prior to incision, I verified the donor ABO and recipient ABO. After the donor organ arrived to the operating room and prior to anastamosis, I visually verified that the donor identification, blood type, and other vital data were compatible with the recipient. FINDINGS: Donor type: ELECTRIC MOTOR ASSEMBLER (expanded criteria donor) Organ: kidney Graft Injury: [...] Goal (Adult,OB,Behavioral The patient and/or their account manager sales representative will achieve their patient-specific goals related to the plan of care. The patient-specific goals include: Outcome: No Change VSS on RA. BG 100. PIV placed. Pt took pre-op shower. Pt seen by cardiology and anesthesia. Report given to PACU nurse. Belongings with pt's friend. Transferred to pre-op area at 1630 for DDKT. Plan of Care - Molly Poalnco RN - 02/02/2014 3:35 PM CDT Problem: IP GENERAL POC-ADULT,OB,BEHAVIORAL FVCPM Goal: Individualization/Patient-Specific Goal (Adult,OB,Behavioral The patient and/or their account manager sales representative will achieve their patient-specific goals [...] LARES - ROBERT POCT Performing Organization Address City/State/[facility] Code Phon e Number FV [...] LARES - ROBERT POCT Performing Organization Address City/[facility]/ZIP Code Phon e Number FV POINT OF CARE TEST, GLUCOSE POINT OF CARE TEST, GLUCOSE Tacrolimus level (02/08/2014 6:42 AM CDT) Patholo gist Method Time Signature Tacrolimus Not Provided [facility] Last Dose [facility] Tacrolimus 10.0 5.0 - [facility] Level 15.0 ug/L [facility] Comment: Tacrolimus Reference [...] [facility]/ZIP Code Phon e Number [facility] [address] LABS (ABNORMAL) INR (02/08/2014 6:42 AM CDT) P athologist Signature INR 1.28 (H) 0.86 - 1.14 [facility] Specimen Anatomical Collection Method Collection Time Receive d Time (Source) Location / / Volume Laterality Blood specimen 02/08/2014 6:42 AM 014 6:43 (specimen) CDT AM CDT Omaira Chavez PA-C LAB - BLOOD ORDERABLES Performing Organization Address City/[facility]/ZIP Code Phon e Number [facility] [address] LABS (ABNORMAL) Basic metabolic panel (02/08/2014 6:42 AM CDT) Patholo gist Method Time Signature Sodium 144 133 - 144 [facility] mmol/L [facility] Potassium 3.9 3.4 - 5.3 [facility] mmol/L [facility] Chloride 110 (H) 94 - 109 [facility] mmol/L [facility] Carbon Dioxide 25 20 - 32 [facility] mmol/L [facility] Anion Gap 8 6 - 17 [facility] mmol/L [facility] Glucose 144 (H) 60 - 99 [facility] mg/dL [facility] Urea Nitrogen 66 (H) 7 - 30 [facility] mg/dL [facility] Creatinine 2.38 (H) 0.66 - [facility] 1.25 mg/dL [facility] [place] [facility] GFR Estimate 28 (L) >60 [facility] mL/min/1.7 [place] [facility] GFR Estimate If 34 (L) >60 [facility] Black mL/min/1.7 [place] [facility] Calcium 9.4 8.5 - 10.4 [facility] mg/dL [facility] Specimen Anatomical Collection Method Collection Time Receive d Time (Source) Location / / Volume Laterality Blood specimen 02/08/2014 6:42 AM 014 6:43 (specimen) CDT AM CDT Omaira Chavez PA-C LAB - BLOOD ORDERABLES Performing Organization Address City/State/ZIP Code Phon e Number [facility] [address] LABS Phosphorus (02/08/2014 6:42 AM CDT) P athologist Signature Phosphorus 2.5 2.5 - 4.5 COUNTS INCLUDE 234 BEDS AT [facility] mg/dL [place] [facility] Specimen Anatomical Collection Method Collection Time Receive d Time (Source) Location / / Volume Laterality Blood specimen 02/08/2014 6:42 AM 014 6:43 (specimen) CDT AM CDT Omaira Chavez PA-C LAB - BLOOD ORDERABLES Performing Organization Address City/State/ZIP Code Phon e Number [facility] [address] LABS Magnesium (02/08/2014 6:42 AM CDT) P athologist Signature Magnesium 2.2 1.6 - 2.3 COUNTS INCLUDE 234 BEDS AT [facility] mg/dL [place] [facility] Specimen Anatomical Collection Method Collection Time Receive d Time (Source) Location / / Volume Laterality Blood specimen 02/08/2014 6:42 AM 014 6:43 (specimen) CDT AM CDT Omaira Chavez PA-C LAB - BLOOD ORDERABLES Performing Organization Address City/[facility]/ZIP Code Phon e Number [facility] [address] LABS (ABNORMAL) CBC with platelets differential (02/08/2014 6:42 AM CDT) Patholo gist Method Time Signature WBC 4.8 4.0 - [facility] 11.0 [place] 10e9/L [place] [facility] RBC Count 2.56 (L) 4.4 - 5.9 [facility] 10e12/L [facility] Hemoglobin 7.8 (L) 13.3 - [facility] 17.7 g/dL [facility]S Hematocrit 23.5 (L) 40.0 - [facility] 53.0 % [facility] MCV 92 78 - 100 [facility] fl [facility] MCH 30.5 26.5 - [facility] 33.0 pg [facility] MCHC 33.2 31.5 - [facility] 36.5 g/dL [facility] RDW 14.5 10.0 - [facility] 15.0 % [facility] Platelet Count 70 (L) 150 - 450 [facility] 10e9/L [facility]S Diff Method Automated [facility] Method [facility] LABS % Neutrophils 86.3 % [facility] % Lymphocytes 3.1 % [facility] % Monocytes 9.4 % [facility] % Eosinophils 1.0 % [facility] % Basophils 0.0 % [facility] % Immature 0.2 % [facility] Granulocytes [facility] Absolute 4.1 1.6 - 8.3 [facility] Neutrophil 10e9/L [facility] Absolute 0.2 (L) 0.8 - 5.3 [facility] Lymphocytes 10e9/L [facility] Absolute 0.5 0.0 - 1.3 [facility] Monocytes 10e9/L [facility] Absolute 0.1 0.0 - 0.7 [facility] Eosinophils 10e9/L [facility] Absolute 0.0 0.0 - 0.2 [facility] Basophils 10e9/L [facility] Abs Immature 0.0 0 - 0.4 [facility] Granulocytes 10e9/L [facility] Specimen Anatomical Collection Method Collection Time Receive d Time (Source) Location / / Volume Laterality Blood specimen 02/08/2014 6:42 AM 014 6:43 (specimen) CDT AM CDT Omaira Chavez PA-C LAB - BLOOD ORDERABLES Performing Organization Address City/State/ZIP Code Phon e Number [facility] [address] [place], [place] [phone] [place] [address] LABS (ABNORMAL) Glucose by meter (02/07/2014 10:18 PM CDT) P athologist Signature Glucose 233 (H) 60 - 99 POINT OF CARE mg/dL TEST, GLUCOSE Specimen Anatomical Collection Method Collection Time Receive d Time (Source) Location / / Volume Laterality 02/07/2014 10:18 02/07/2014 PM CDT 10:20 PM CDT Migel Merchant MD LAB - BEAKER POCT Performing Organization Address [facility] Phon e Number FV POINT OF [...] LAB - BEAJ POCT Performing Organization Address [facility] Phon e Number FV POINT OF [...] LAB - BEAKER POCT Performing Organization Address [facility] Phon e Number FV POINT OF [...] LAB - BEAJ POCT Performing Organization Address [facility] Phon e Number FV POINT OF [...] LARES - ROBERT POCT Performing Organization Address City/[facility]/ZIP Code Phon e Number FV POINT OF CARE TEST, GLUCOSE POINT OF CARE TEST, GLUCOSE (ABNORMAL) INR (02/07/2014 4:23 AM CDT) athologist Signature INR 1.25 (H) 0.86 - 1.14 [facility] LABS Specimen Anatomical Collection Method Collection Time Receive d Time (Source) Location / / Volume Laterality Blood specimen 02/07/2014 4:23 AM 014 4:24 (specimen) CDT AM CDT Omaira Chavez PA-C LAB - BLOOD ORDERABLES Performing Organization Address City/[facility]/ZIP Code Phon e Number [id number] [place] [address] LABS (ABNORMAL) Basic metabolic panel (02/07/2014 4:23 AM CDT) [facility] Method Time Signature Sodium 143 133 - 144 [facility] mmol/L [facility]S Potassium 4.1 3.4 - 5.3 [facility] mmol/L [facility]S Chloride 109 94 - 109 [facility] mmol/L [facility]S Carbon Dioxide 24 20 - 32 [facility] mmol/L [facility]S Anion Gap 10 6 - 17 [facility] mmol/L [facility]S Glucose 185 (H) 60 - 99 [facility] mg/dL [facility] Urea Nitrogen 77 (H) 7 - 30 [facility] mg/dL [facility] Creatinine 3.02 (H) 0.66 - [facility] 1.25 mg/dL [facility] [place] [facility] GFR Estimate 21 (L) >60 [facility] mL/min/1.7 [place] [facility] GFR Estimate If 26 (L) >60 [facility] Black mL/min/1.7 [place] [facility] LABS Calcium 9.3 8.5 - 10.4 [facility] mg/dL [facility] Specimen Anatomical Collection Method Collection Time Receive d Time (Source) Location / / Volume Laterality Blood specimen 02/07/2014 4:23 AM 014 4:24 (specimen) CDT AM CDT Omaira Chavez PA-C LAB - BLOOD ORDERABLES Performing Organization Address City/State/ZIP Code Phon e Number [facility] [address] LABS Phosphorus (02/07/2014 4:23 AM CDT) P athologist Signature Phosphorus 3.5 2.5 - 4.5 COUNTS INCLUDE 234 BEDS AT [facility] mg/dL [place] [facility] Specimen Anatomical Collection Method Collection Time Receive d Time (Source) Location / / Volume Laterality Blood specimen 02/07/2014 4:23 AM 014 4:24 (specimen) CDT AM CDT Omaira Chavez PA-C LAB - BLOOD ORDERABLES Performing Organization Address City/State/ZIP Code Phon e Number [facility] [address] LABS Magnesium (02/07/2014 4:23 AM CDT) P athologist Signature Magnesium 2.1 1.6 - 2.3 COUNTS INCLUDE 234 BEDS AT [facility] mg/dL [place] [facility] Specimen Anatomical Collection Method Collection Time Receive d Time (Source) Location / / Volume Laterality Blood specimen 02/07/2014 4:23 AM 014 4:24 (specimen) CDT AM CDT Omaira Chavez PA-C LAB - BLOOD ORDERABLES Performing Organization Address City/State/ZIP Code Phon e Number [facility] [address] [place], [place] [phone] [place] [address] LABS (ABNORMAL) CBC with platelets differential (02/07/2014 4:23 AM CDT) [facility] gist Method Time Signature WBC 2.7 (L) 4.0 - [facility] 11.0 [place] 10e9/L [place] [facility] RBC Count 2.80 (L) 4.4 - 5.9 [facility] 10e12/L [facility]S Hemoglobin 8.5 (L) 13.3 - [facility] 17.7 g/dL [facility]S Hematocrit 25.8 (L) 40.0 - [facility] 53.0 % [facility]S MCV 92 78 - 100 [facility] fl [facility]S MCH 30.4 26.5 - [facility] 33.0 pg [facility]S MCHC 32.9 31.5 - [facility] 36.5 g/dL [facility]S RDW 14.5 10.0 - [facility] 15.0 % [facility]S Platelet Count 77 (L) 150 - 450 [facility] 10e9/L [facility] LABS Diff Method Automated [facility] Method [facility] LABS % Neutrophils 87.5 % [facility] % Lymphocytes 3.8 % [facility] % Monocytes 8.7 % [facility] % Eosinophils 0.0 % [facility] % Basophils 0.0 % [facility] % Immature 0.0 % [facility] Granulocytes [facility] Absolute 2.3 1.6 - 8.3 [facility] Neutrophil 10e9/L [facility]S Absolute 0.1 (L) 0.8 - 5.3 [facility] Lymphocytes 10e9/L [facility] Absolute 0.2 0.0 - 1.3 [facility] Monocytes 10e9/L [facility] Absolute 0.0 0.0 - 0.7 [facility] Eosinophils 10e9/L [facility] Absolute 0.0 0.0 - 0.2 [facility] Basophils 10e9/L [facility]S Abs Immature 0.0 0 - 0.4 [facility] Granulocytes 10e9/L [facility] Specimen Anatomical Collection Method Collection Time Receive d Time (Source) Location / / Volume Laterality Blood specimen 02/07/2014 4:23 AM 014 4:24 (specimen) CDT AM CDT Omaira Chavez PA-C LAB - BLOOD ORDERABLES Performing Organization Address City/State/ZIP Code Phon e Number [facility] [address] [place], [place] [phone] [place] [address] LABS (ABNORMAL) Hemoglobin A1c (02/07/2014 4:23 AM CDT) Analysis Performed At Patho logist Time Signature Hemoglobin A1C 6.1 (H) 4.3 - 6.0 [facility] LABS Specimen Anatomical Collection Method Collection Time Receive d Time (Source) Location / / Volume Laterality Blood specimen 02/07/2014 4:23 AM 014 4:24 (specimen) CDT AM CDT Omaira Chavez PA-C LAB - BLOOD ORDERABLES Performing Organization Address City/State/ZIP Code Phon e Number [facility] [address] [place] [address] [facility] LABS (ABNORMAL) Glucose by meter (02/06/2014 10:06 PM CDT) P athologist Signature Glucose 247 (H) 60 - 99 POINT OF CARE mg/dL TEST, GLUCOSE Specimen Anatomical Collection Method Collection Time Receive d Time (Source) Location / / Volume Laterality 02/06/2014 10:06 02/06/2014 PM CDT 10:10 PM CDT Migel LARES - BEAKER POCT Performing Organization Address City/[facility]/ZIP Code Phon e Number FV POINT OF [...] CDT Migel JONES POCT Performing Organization Address City/[facility]/ZIP Code Phon e Number FV POINT OF [...] Signature Hemoglobin 8.8 (L) 13.3 - 17.7 COUNTS INCLUDE 234 BEDS AT [facility] g/dL [place] [facility] Specimen Anatomical Collection Method Collection Time Receive d Time (Source) Location / / Volume Laterality Blood specimen 02/06/2014 4:59 PM 014 5:12 (specimen) CDT PM CDT Omaira Chavez PA-C LAB - BLOOD ORDERABLES Performing Organization Address City/[facility]/ZIP Code Phon e Number [facility] [address] LABS (ABNORMAL) Glucose by meter (02/06/2014 12:01 PM CDT) P athologist Signature Glucose 181 (H) 60 - 99 POINT OF CARE mg/dL TEST, GLUCOSE Specimen Anatomical Collection Method Collection Time Receive d Time (Source) Location / / Volume Laterality 02/06/2014 12:01 02/06/2014 PM CDT 12:05 PM CDT Migel LARSE - ROBERT POCT Performing Organization Address City/[facility]/ZIP Code Phon e Number FV POINT OF CARE TEST, GLUCOSE POINT OF CARE TEST, GLUCOSE (ABNORMAL) Partial thromboplastin time (02/06/2014 5:57 AM CDT) P athologist Signature PTT 154 (HH) 22 - 37 sec [facility] LABS Comment: Critical Value called to and read back Whitney Poon RN AT 0642. PW Specimen Anatomical Collection Method Collection Time Receive d Time (Source) Location / / Volume Laterality 02/06/2014 5:57 AM 4 6:03 CDT AM CDT Adeline Diaz MD LAB - BLOOD ORDERABLES Performing Organization Address City/[facility]/ZIP Code Phon e Number [facility] [address] [place], [place] [phone] [place] [address] LABS Heparin Xa (10a) Level (02/06/2014 5:57 AM CDT) P athologist Signature Heparin 10A 0.92 IU/mL [facility] LABS Comment: Therapeutic Range: ?? UFH: [...] [facility]ZIP Code Phon e Number [address] LABS (ABNORMAL) INR (02/06/2014 5:57 AM CDT) P athologist Signature INR 1.32 (H) 0.86 - 1.14 [facility]S Specimen Anatomical Collection Method Collection Time Receive d Time (Source) Location / / Volume Laterality Blood specimen 02/06/2014 5:57 AM 014 6:03 (specimen) CDT AM CDT Omaira Chavez PA-C LAB - BLOOD ORDERABLES Performing Organization Address City/[facility]/ZIP Code Phon e Number [address] LABS (ABNORMAL) Basic metabolic panel (02/06/2014 5:57 AM CDT) Patholo gist Method Time Signature Sodium 142 133 - 144 [facility] mmol/L [facility]S Potassium 4.7 3.4 - 5.3 [facility] mmol/L [facility]S Chloride 106 94 - 109 [facility] mmol/L [facility] LABS Carbon Dioxide 28 20 - 32 [facility] mmol/L [facility]S Anion Gap 8 6 - 17 [facility] mmol/L [facility]S Glucose 196 (H) 60 - 99 [facility] mg/dL [facility]S Urea Nitrogen 71 (H) 7 - 30 [facility] mg/dL [facility]S Creatinine 3.96 (H) 0.66 - [facility] 1.25 mg/dL [facility]S GFR Estimate 15 (L) >60 [facility] mL/min/1.7 [place] m2 [place] [facility] GFR Estimate If 19 (L) >60 [facility] Black mL/min/1.[address] LABS Calcium 9.4 8.5 - 10.4 [facility] mg/dL [facility]S Specimen Anatomical Collection Method Collection Time Receive d Time (Source) Location / / Volume Laterality Blood specimen 02/06/2014 5:57 AM 014 6:03 (specimen) CDT AM CDT Omaira Chavez PA-C LAB - BLOOD ORDERABLES Performing Organization Address City/[facility]/ZIP Code Phon e Number [address] LABS Phosphorus (02/06/2014 5:57 AM CDT) P athologist Signature Phosphorus 4.5 2.5 - 4.5 COUNTS INCLUDE 234 BEDS AT [facility] mg/dL [place] [facility] Specimen Anatomical Collection Method Collection Time Receive d Time (Source) Location / / Volume Laterality Blood specimen 02/06/2014 5:57 AM 014 6:03 (specimen) CDT AM CDT Omaira Chavez PA-C LAB - BLOOD ORDERABLES Performing Organization Address City/State/ZIP Code Phon e Number [facility] [address] LABS Magnesium (02/06/2014 5:57 AM CDT) P athologist Signature Magnesium 1.9 1.6 - 2.3 COUNTS INCLUDE 234 BEDS AT [facility] mg/dL [place] [facility] Specimen Anatomical Collection Method Collection Time Receive d Time (Source) Location / / Volume Laterality Blood specimen 02/06/2014 5:57 AM 014 6:03 (specimen) CDT AM CDT Omaira Chavez PA-C LAB - BLOOD ORDERABLES Performing Organization Address City/State/ZIP Code Phon e Number [address] [address] [place] [facility] (ABNORMAL) CBC with platelets differential (02/06/2014 5:57 AM CDT) [facility] gist Method Time Signature WBC 5.1 4.0 - [facility] 11.0 [facility] 10e9/L [facility] LABS RBC Count 3.13 (L) 4.4 - 5.9 [facility] 10e12/L [facility]S Hemoglobin 9.6 (L) 13.3 - [facility] 17.7 g/dL [facility]S Hematocrit 29.0 (L) 40.0 - [facility] 53.0 % [facility]S MCV 93 78 - 100 [facility] fl [facility]S MCH 30.7 26.5 - [facility] 33.0 pg [facility]S MCHC 33.1 31.5 - [facility] 36.5 g/dL [facility]S RDW 14.5 10.0 - [facility] 15.0 % [facility]S Platelet Count 85 (L) 150 - 450 [facility] 10e9/L [facility]S Diff Method Automated [facility] Method [facility] % Neutrophils 86.0 % [facility] % Lymphocytes 5.1 % [facility] % Monocytes 8.7 % [facility] % Eosinophils 0.0 % [facility] % Basophils 0.0 % [facility] % Immature 0.2 % [facility] Granulocytes [facility] Absolute 4.4 1.6 - 8.3 [facility] Neutrophil 10e9/L [facility]S Absolute 0.3 (L) 0.8 - 5.3 [facility] Lymphocytes 10e9/L [facility]S Absolute 0.4 0.0 - 1.3 [facility] Monocytes 10e9/L [facility] Absolute 0.0 0.0 - 0.7 [facility] Eosinophils 10e9/L [facility] Absolute 0.0 0.0 - 0.2 [facility] Basophils 10e9/L [facility] Abs Immature 0.0 0 - 0.4 [facility] Granulocytes 10e9/L [facility] Specimen Anatomical Collection Method Collection Time Receive d Time (Source) Location / / Volume Laterality Blood specimen 02/06/2014 5:57 AM 014 6:03 (specimen) CDT AM CDT Omaira Chavez PA-C LAB - BLOOD ORDERABLES Performing Organization Address [facility]/ZIP Code Phon e Number [facility] [address] LABS (ABNORMAL) Lipid panel reflex to direct LDL (02/06/2014 5:57 AM CDT) P athologist Signature Cholesterol 126 <200 mg/dL [facility] Comment: LDL Cholesterol is the primary guide to therapy. The NCEP recommends further evaluation of: patients with cholesterol greater than 200 mg/dL if additional risk facto rs are present, cholesterol greater than 240 mg/dL, triglycerides greater than 1 50 mg/dL, or HDL less than 40 mg/dL. Triglycerides 100 0 - 150 mg/dL [facility] LABS HDL Cholesterol 35 (L) >40 mg/dL [facility] LABS LDL Cholesterol Calculated 71 0 - 129 mg/dL [facility] Comment: LDL Cholesterol is the primary guide to therapy: LDL-cholesterol goal in high risk patients is <100 mg/dL and in very high risk patients is <70 mg/dL. VLDL-Cholesterol 20 0 - 30 mg/dL [facility] Cholesterol/HDL Ratio 3.6 0.0 - 5.0 [facility] Specimen Anatomical Collection Method Collection Time Receive d Time (Source) Location / / Volume Laterality Blood specimen 02/06/2014 5:57 AM 2 014 6:03 (specimen) CDT AM CDT Omaira Chavez PA-C LAB - BLOOD ORDERABLES Performing Organization Address City/[facility]/ZIP Code Phon e Number [facility] [address] [place] [address] [facility] LABS Tacrolimus level (02/06/2014 5:57 AM CDT) Patholo gist Method Time Signature Tacrolimus S Negative [facility] Last Dose [facility]S Tacrolimus 12.7 5.0 - [facility] Level 15.0 ug/L [facility] Comment: Tacrolimus Reference [...] Number [facility] [address] [place] [address] [facility] LABS (ABNORMAL) Glucose by meter (02/06/2014 [...] athologist Signature Hemoglobin 10.2 (L) 13.3 - COUNTS INCLUDE 234 BEDS AT [facility] 17.7 g/dL [place] [facility] Specimen Anatomical Collection Method Collection Time Receive d Time (Source) Location / / Volume Laterality Blood specimen 02/06/2014 1:02 AM 014 1:11 (specimen) CDT AM CDT Deysi Alicea MD LAB - BLOOD ORDERABLES Performing Organization Address City/State/ZIP Code Phon e Number [phone] [place] [address] LABS (ABNORMAL) Glucose by meter (02/05/2014 10:23 [...] CDT) athologist Signature Heparin 10A 0.64 IU/mL [facility] LABS Comment: Therapeutic Range: ?? UFH: [...] Organization Address City/State/ZIP Code Phon e Number [address] [address] [facility] LABS (ABNORMAL) Glucose by meter (02/05/2014 6:04 PM CDT) P athologist Signature Glucose 232 (H) 60 - 99 POINT OF CARE mg/dL TEST, GLUCOSE Specimen Anatomical Collection Method Collection Time Receive d Time (Source) Location / / Volume Laterality 02/05/2014 6:04 PM 4 6:10 CDT PM CDT Migel Merchant MD LAB - BEAKER POCT Performing Organization Address [facility] Phon e Number FV POINT OF [...] LAB - BEAJ POCT Performing Organization Address City/[facility] Phon e Number FV POINT OF [...] LARES - BEAJ POCT Performing Organization Address [facility] Phon e Number FV POINT OF [...] Signature INR 1.24 (H) 0.86 - 1.14 [facility] Specimen Anatomical Collection Method Collection Time Receive d Time (Source) Location / / Volume Laterality Blood specimen 02/05/2014 12:04 4 (specimen) PM CDT 12:10 PM CDT Teresa Wright [facility] LAB - BLOOD ORDERABLES Performing Organization Address City/State/ZIP Code Phon e Number [phone] [place] [address] LABS (ABNORMAL) CBC with platelets (02/05/2014 12:04 PM CDT) [facility] gist Method Time Signature WBC 7.4 4.0 - 11.0 [facility] 10e9/L [facility] LABS RBC Count 3.31 (L) 4.4 - 5.9 [facility] 10e12/L [facility]S Hemoglobin 10.3 (L) 13.3 - [facility] 17.7 g/dL [facility]S Hematocrit 31.0 (L) 40.0 - [facility] 53.0 % [facility]S MCV 94 78 - 100 [facility] fl [facility] LABS MCH 31.1 26.5 - [facility] 33.0 pg [facility]S MCHC 33.2 31.5 - [facility] 36.5 g/dL [facility]S RDW 14.7 10.0 - [facility] 15.0 % [facility] Platelet Count 91 (L) 150 - 450 [facility] 10e9/L [facility] Specimen Anatomical Collection Method Collection Time Receive d Time (Source) Location / / Volume Laterality Blood specimen 02/05/2014 12:04 4 (specimen) PM CDT 12:10 PM CDT Omaira Chavez PA-C LAB - BLOOD ORDERABLES Performing Organization Address City/State/ZIP Code Phon e Number [facility] [address] [place] [address] [facility] LABS (ABNORMAL) Glucose by meter (02/05/2014 11:25 AM CDT) P athologist Signature Glucose 190 (H) 60 - 99 POINT OF CARE mg/dL TEST, GLUCOSE Specimen Anatomical Collection Method Collection Time Receive d Time (Source) Location / / Volume Laterality 02/05/2014 11:25 02/05/2014 AM CDT 11:30 AM CDT Migel Merchant MD LAB - BEAKER POCT Performing Organization Address City/[facility]/ZIP Code Phon e Number FV POINT OF [...] 9:43 AM 4 9:45 CDT AM CDT Miegl LARES - BEAJ POCT Performing Organization Address City/[facility]/ZIP Code Phon e Number FV POINT OF [...] Basic metabolic panel (02/05/2014 7:02 AM CDT) [facility] gist Method Time Signature Sodium 143 133 - 144 [facility] mmol/L [facility] Potassium 4.3 3.4 - 5.3 [facility] mmol/L [facility] Chloride 107 94 - 109 [facility] mmol/L [facility] Carbon Dioxide 25 20 - 32 [facility] mmol/L [facility] [place] [facility] Anion Gap 10 6 - 17 [...] Organization Address City/State/ZIP Code Phon e Number [phone] [place] [address] LABS (ABNORMAL) Phosphorus (02/05/2014 7:02 AM CDT) [...] [facility]ZIP Code Phon e Number [facility] [address] [place], [place] [phone] [place] [address] LABS Magnesium (02/05/2014 7:02 AM CDT) P athologist Signature Magnesium 2.0 1.6 - 2.3 COUNTS INCLUDE 234 BEDS AT [facility] mg/dL [place] [facility] Specimen Anatomical Collection Method Collection Time Receive d Time (Source) Location / / Volume Laterality Blood specimen 02/05/2014 7:02 AM 014 7:05 (specimen) CDT AM CDT Omaira Chavez PA-C LAB - BLOOD ORDERABLES Performing Organization Address City/[facility]/ZIP Code Phon e Number [facility] [address] [place] [address] [facility] LABS (ABNORMAL) CBC with platelets differential (02/05/2014 7:02 AM CDT) Patholo gist Method Time Signature WBC 8.9 4.0 - [facility] 11.0 [facility] 10e9/L [place] [facility]S RBC Count 3.20 (L) 4.4 - 5.9 [facility] 10e12/L [facility] LABS Hemoglobin 9.7 (L) 13.3 - [facility] 17.7 g/dL [facility] LABS Hematocrit 30.0 (L) 40.0 - [facility] 53.0 % [facility] LABS MCV 94 78 - 100 [facility] fl [facility] LABS MCH 30.3 26.5 - [facility] 33.0 pg [facility] LABS MCHC 32.3 31.5 - [facility] 36.5 g/dL [facility] LABS RDW 14.6 10.0 - [facility] 15.0 % [facility]S Platelet Count 96 (L) 150 - 450 [facility] 10e9/L [facility] LABS Diff Method Automated [facility] Method [facility] LABS % Neutrophils 90.2 % [facility] LABS % Lymphocytes 4.4 % [facility] LABS % Monocytes 5.2 % [facility] LABS % Eosinophils 0.0 % [facility]S % Basophils 0.0 % [facility] LABS % Immature 0.2 % [facility] Granulocytes [facility] [place] [facility] Absolute 8.1 1.6 - 8.3 [facility] Neutrophil 10e9/L [facility] LABS Absolute 0.4 (L) 0.8 - 5.3 [facility] Lymphocytes 10e9/L [facility] LABS Absolute 0.5 0.0 - 1.3 [facility] Monocytes 10e9/L [facility] LABS Absolute 0.0 0.0 - 0.7 [facility] Eosinophils 10e9/L [facility] LABS Absolute 0.0 0.0 - 0.2 [facility] Basophils 10e9/L [facility] LABS Abs Immature 0.0 0 - 0.4 [facility] Granulocytes 10e9/L [facility] LABS Specimen Anatomical Collection Method Collection Time Receive d Time (Source) Location / / Volume Laterality Blood specimen 02/05/2014 7:02 AM 014 7:05 (specimen) CDT AM CDT Omaira Chavez PA-C LAB - BLOOD ORDERABLES Performing Organization Address City/[facility] Phon e Number [address] LABS (ABNORMAL) Parathormone intact (02/05/2014 7:02 AM CDT) Patholo gist Method Time Signature Parathyroid 362 (H) 12 - 72 [facility] Hormone Intact pg/mL [facility] LABS Specimen Anatomical Collection Method Collection Time Receive d Time (Source) Location / / Volume Laterality Blood specimen 02/05/2014 7:02 AM 014 7:05 (specimen) CDT AM CDT Sina Robison MD LAB - BLOOD ORDERABLES Performing Organization Address City/[facility]/ZIP Code Phon e Number [address] LABS (ABNORMAL) Ferritin (02/05/2014 7:02 AM CDT) P athologist Signature Ferritin 932 (H) 20 - 300 COUNTS INCLUDE 234 BEDS AT [facility] ng/mL [place] LABS Specimen Anatomical Collection Method Collection Time Receive d Time (Source) Location / / Volume Laterality Blood specimen 02/05/2014 7:02 AM 014 7:05 (specimen) CDT AM CDT Sina Robison MD LAB - BLOOD ORDERABLES Performing Organization Address City/[facility]/ZIP Code Phon e Number [facility] [address] [place] [address] [facility] LABS (ABNORMAL) Iron and iron binding capacity (02/05/2014 7:02 AM CDT) Analysis Performed At Patho logist Time Signature Iron 119 35 - 180 [facility] ug/dL [facility] LABS Iron Binding 207 (L) 240 - 430 [facility] Cap ug/dL [facility] LABS Iron Saturation 58 (H) 15 - 46 % [facility] Index [facility] LABS Specimen Anatomical Collection Method Collection Time Receive d Time (Source) Location / / Volume Laterality Blood specimen 02/05/2014 7:02 AM 014 7:05 (specimen) CDT AM CDT Sina Robison MD LAB - BLOOD ORDERABLES Performing Organization Address City/[facility]/ZIP Code Phon e Number [facility] [address] [place] [address] [facility] LABS (ABNORMAL) Glucose by meter (02/05/2014 6:59 AM CDT) athologist Signature Glucose 123 (H) 60 - 99 POINT OF CARE mg/dL TEST, GLUCOSE Specimen Anatomical Collection Method Collection Time Receive d Time (Source) Location / / Volume Laterality 02/05/2014 6:59 AM 4 7:05 CDT AM CDT Migel LARES - BEAJ POCT Performing Organization Address City/[facility]/ZIP Code Phon e Number FV POINT OF [...] LARES - BEAJ POCT Performing Organization Address City/[facility]/ZIP Code Phon e Number FV POINT OF [...] LAB - BEAKER POCT Performing Organization Address [facility] Phon e Number FV POINT OF [...] LAB - BEAJ POCT Performing Organization Address [facility] Phon e Number FV POINT OF [...] LAB - BEAJ POCT Performing Organization Address [facility] Phon e Number FV POINT OF [...] LAB - BEAJ POCT Performing Organization Address [facility] Phon e Number FV POINT OF [...] LAB - ROBERT POCT Performing Organization Address [facility] Phon e Number FV POINT OF [...] LARES - ROBERT POCT Performing Organization Address [facility] Phon e Number FV POINT OF CARE TEST, GLUCOSE POINT OF CARE TEST, GLUCOSE EKG 12-lead, complete (02/04/2014 11:09 PM CDT) [facility] gist Method Time Signature Interpretation ECG Click View RADIOLOGY Image link RESULTS to view waveform and result Specimen (Source) Anatomical Collection Method Collection Time Re ceived Time Location / / Volume Laterality 02/04/2014 11:09 PM CDT Chemo Carr MD ECG ORDERABLES Performing Organization Address [facility] Phon e Number RADIOLOGY RESULTS (ABNORMAL) Glucose by meter (02/04/2014 10:56 PM CDT) P athologist Signature Glucose 161 (H) 60 - 99 POINT OF CARE mg/dL TEST, GLUCOSE Specimen Anatomical Collection Method Collection Time Receive d Time (Source) Location / / Volume Laterality 02/04/2014 10:56 02/04/2014 PM CDT 11:00 PM CDT Migel LARES - ROBERT POCT Performing Organization Address [facility] Phon e Number FV POINT OF [...] LAB - BEAKER POCT Performing Organization Address City/[facility]/ZIP Code Phon e Number FV POINT OF [...] LAB - BEAJ POCT Performing Organization Address City/[facility]/ZIP Code Phon e Number FV POINT OF [...] LARES - BEAKER POCT Performing Organization Address City/[facility]/ZIP Code Phon e Number FV POINT OF CARE TEST, GLUCOSE POINT OF CARE TEST, GLUCOSE Troponin I (02/04/2014 7:10 PM CDT) P athologist Signature Troponin I 0.016 0.000 - COUNTS INCLUDE 234 BEDS AT [facility] 0.034 ug/L [place] LABS Specimen Anatomical Collection Method Collection Time Receive d Time (Source) Location / / Volume Laterality Blood specimen 02/04/2014 7:10 PM 014 7:23 (specimen) CDT PM CDT Adeline Diaz MD LAB - BLOOD ORDERABLES Performing Organization Address City/State/ZIP Code Phon e Number [address] [address] [facility] LABS (ABNORMAL) Glucose by meter (02/04/2014 7:01 PM CDT) P athologist Signature Glucose 157 (H) 60 - 99 POINT OF CARE mg/dL TEST, GLUCOSE Specimen Anatomical Collection Method Collection Time Receive d Time (Source) Location / / Volume Laterality 02/04/2014 7:01 PM 4 7:05 CDT PM CDT Migel Merchant MD LAB - BEAKER POCT Performing Organization Address City/[facility]/ZIP Code Phon e Number FV POINT OF [...] LAB - BEAKER POCT Performing Organization Address City/[facility]/ZIP Code Phon e Number FV POINT OF [...] LAB - BEAJ POCT Performing Organization Address City/[facility]/ZIP Code Phon e Number FV POINT OF [...] athologist Signature Troponin I 0.025 0.000 - COUNTS INCLUDE 234 BEDS AT [facility] 0.034 ug/L [place] LABS Specimen Anatomical Collection Method Collection Time Receive d Time (Source) Location / / Volume Laterality Blood specimen 02/04/2014 12:42 4 (specimen) PM CDT 12:45 PM CDT Adeline Diaz MD LAB - BLOOD ORDERABLES Performing Organization Address City/[facility]/ZIP Code Phon e Number [id number] [place] [address] LABS (ABNORMAL) Glucose by meter (02/04/2014 12:27 PM CDT) P athologist Signature Glucose 140 (H) 60 - 99 POINT OF CARE mg/dL TEST, GLUCOSE Specimen Anatomical Collection Method Collection Time Receive d Time (Source) Location / / Volume Laterality 02/04/2014 12:27 02/04/2014 PM CDT 12:30 PM CDT Migel Merchant MD LAB - BEAKER POCT Performing Organization Address City/[facility]/ZIP Code Phon e Number FV POINT OF [...] LARES - ROBERT POCT Performing Organization Address [facility] Phon e Number FV POINT OF [...] Chavez PA-C ECG ORDERABLES Performing Organization Address [facility] Phon e Number RADIOLOGY RESULTS (ABNORMAL) Glucose by meter (02/04/2014 9:02 AM CDT) P athologist Signature Glucose 203 (H) 60 - 99 POINT OF CARE mg/dL TEST, GLUCOSE Specimen Anatomical Collection Method Collection Time Receive d Time (Source) Location / / Volume Laterality 02/04/2014 9:02 AM 4 9:05 CDT AM CDT Migel LARES - ROBERT POCT Performing Organization Address [facility] Phon e Number FV POINT OF [...] LARES - ROBERT POCT Performing Organization Address [facility] Phon e Number FV POINT OF [...] LAB - BEAKER POCT Performing Organization Address City/[facility]/ZIP [facility] Phon e Number FV POINT OF CARE TEST, GLUCOSE POINT OF CARE TEST, GLUCOSE EKG 12-lead, complete (02/04/2014 7:03 AM CDT) [facility] gist Method Time Signature Interpretation ECG Click View RADIOLOGY Image link RESULTS to view waveform and result Specimen (Source) Anatomical Collection Method Collection Time Re ceived Time Location / / Volume Laterality 02/04/2014 7:03 AM CDT Caitlin Owens MD ECG ORDERABLES Performing Organization Address [facility] Code Phon e Number RADIOLOGY RESULTS (ABNORMAL) Glucose by meter (02/04/2014 6:09 AM CDT) athologist Signature Glucose 160 (H) 60 - 99 POINT OF CARE mg/dL TEST, GLUCOSE Specimen Anatomical Collection Method Collection Time Receive d Time (Source) Location / / Volume Laterality 02/04/2014 6:09 AM 4 6:15 CDT AM CDT Migel Merchant MD LAB - BEAKER POCT Performing Organization Address [facility] Phon e Number FV POINT OF CARE TEST, GLUCOSE POINT OF CARE TEST, GLUCOSE Troponin I (02/04/2014 5:49 AM CDT) athologist Signature Troponin I ES <0.012 0.000 - COUNTS INCLUDE 234 BEDS AT [facility] 0.034 ug/L [facility]AMPUS LABS Specimen Anatomical Collection Method Collection Time Receive d Time (Source) Location / / Volume Laterality 02/04/2014 5:49 AM 4 5:51 CDT AM CDT Caitlin Owens MD LAB - BLOOD ORDERABLES Performing Organization Address City/[facility]/ZIP Code Phon e Number [id number] [place] [address] LABS (ABNORMAL) Basic metabolic panel (02/04/2014 5:49 AM CDT) Patholo gist Method Time Signature Sodium 142 133 - 144 [facility] mmol/L [facility] LABS Potassium 4.9 3.4 - 5.3 [facility] mmol/L [facility] LABS Chloride 107 94 - 109 [facility] mmol/L [facility] LABS Carbon Dioxide 23 20 - 32 [facility] mmol/L [facility] LABS Anion Gap 12 6 - 17 [facility] mmol/L [facility] LABS Glucose 151 (H) 60 - 99 [facility] mg/dL [facility] LABS Urea Nitrogen 57 (H) 7 - 30 [facility] mg/dL [facility] LABS Creatinine 5.94 (H) 0.66 - [facility] 1.25 mg/dL [facility] LABS GFR Estimate 10 (L) >60 [facility] mL/min/1.7 [place] m2 [place] LABS GFR Estimate If 12 (L) >60 [facility] Black mL/min/1.[address] LABS Calcium 9.4 8.5 - 10.4 [facility] mg/dL [facility] LABS Specimen Anatomical Collection Method Collection Time Receive d Time (Source) Location / / Volume Laterality Blood specimen 02/04/2014 5:49 AM 014 5:51 (specimen) CDT AM CDT Omaira Chavez PA-C LAB - BLOOD ORDERABLES Performing Organization Address City/[facility]/ZIP Code Phon e Number [address] LABS (ABNORMAL) Phosphorus (02/04/2014 5:49 AM CDT) P athologist Signature Phosphorus 6.3 (H) 2.5 - 4.5 [facility]ITY mg/dL [place] LABS Specimen Anatomical Collection Method Collection Time Receive d Time (Source) Location / / Volume Laterality Blood specimen 02/04/2014 5:49 AM 014 5:51 (specimen) CDT AM CDT Omaira Chavez PA-C LAB - BLOOD ORDERABLES Performing Organization Address City/[facility]/ZIP Code Phon e Number [address] LABS Magnesium (02/04/2014 5:49 AM CDT) [...] Number [facility] [address] [place] [address] [facility] LABS (ABNORMAL) CBC with platelets differential (02/04/2014 5:49 AM CDT) [facility] gist Method Time Signature WBC 13.8 (H) 4.0 - [facility] 11.0 [facility] 10e9/L [place] LABS RBC Count 3.10 (L) 4.4 - 5.9 [facility] 10e12/L [facility] LABS Hemoglobin 9.5 (L) 13.3 - [facility] 17.7 g/dL [facility] LABS Hematocrit 28.7 (L) 40.0 - [facility] 53.0 % [facility] LABS MCV 93 78 - 100 [facility] fl [facility] LABS MCH 30.6 26.5 - [facility] 33.0 pg [facility] LABS MCHC 33.1 31.5 - [facility] 36.5 g/dL [facility] LABS RDW 14.6 10.0 - [facility] 15.0 % [facility] LABS Platelet Count 91 (L) 150 - 450 [facility] 10e9/L [facility] LABS Diff Method Automated [facility] Method [facility] LABS % Neutrophils 95.8 % [facility] LABS % Lymphocytes 1.2 % [facility] LABS % Monocytes 2.8 % [facility] LABS % Eosinophils 0.0 % [facility] % Basophils 0.0 % [facility] LABS % Immature 0.2 % [facility] Granulocytes [facility] LABS Absolute 13.2 (H) 1.6 - 8.3 [facility] Neutrophil 10e9/L [facility] LABS Absolute 0.2 (L) 0.8 - 5.3 [facility] Lymphocytes 10e9/L [facility] LABS Absolute 0.4 0.0 - 1.3 [facility] Monocytes 10e9/L [facility] LABS Absolute 0.0 0.0 - 0.7 [facility] Eosinophils 10e9/L [facility] LABS Absolute 0.0 0.0 - 0.2 [facility] Basophils 10e9/L [facility] LABS Abs Immature 0.0 0 - 0.4 [facility] Granulocytes 10e9/L [facility] LABS Specimen Anatomical Collection Method Collection Time Receive d Time (Source) Location / / Volume Laterality Blood specimen 02/04/2014 5:49 AM 014 5:51 (specimen) CDT AM CDT Omaira Chavez PA-C LAB - BLOOD ORDERABLES Performing Organization Address City/State/ZIP Code Phon e Number [address] [address] [facility] LABS (ABNORMAL) Glucose by meter (02/04/2014 5:33 AM CDT) P athologist Signature Glucose 155 (H) 60 - 99 POINT OF CARE mg/dL TEST, GLUCOSE Specimen Anatomical Collection Method Collection Time Receive d Time (Source) Location / / Volume Laterality 02/04/2014 5:33 AM 4 5:35 CDT AM CDT Migel LARES - ROBERT POCT Performing Organization Address City/[facility]/ZIP Code Phon e Number FV POINT OF [...] LAB - BEAJ POCT Performing Organization Address City/[facility] Code Phon e Number FV [...] LARES - ROBERT POCT Performing Organization Address City/[facility] Code Phon e Number FV [...] LARES - ROBERT POCT Performing Organization Address City/[facility] Code Phon e Number FV POINT OF CARE TEST, GLUCOSE POINT OF CARE TEST, GLUCOSE Potassium (02/03/2014 10:16 PM CDT) P athologist Signature Potassium 4.8 3.4 - 5.3 COUNTS INCLUDE 234 BEDS AT [facility] mmol/L [place] LABS Specimen Anatomical Collection Method Collection Time Receive d Time (Source) Location / / Volume Laterality Blood specimen 02/03/2014 10:16 4 (specimen) PM CDT 10:19 PM CDT Caitlin Owens MD LAB - BLOOD ORDERABLES Performing Organization Address City/State/ZIP Code Phon e Number [address] LABS (ABNORMAL) Hemoglobin (02/03/2014 10:16 PM CDT) athologist Signature Hemoglobin 9.4 (L) 13.3 - 17.7 COUNTS INCLUDE 234 BEDS AT [facility] g/dL [place] LABS Specimen Anatomical Collection Method Collection Time Receive d Time (Source) Location / / Volume Laterality Blood specimen 02/03/2014 10:16 4 (specimen) PM CDT 10:19 PM CDT Caitlin Owens MD LAB - BLOOD ORDERABLES Performing Organization Address City/[facility]/ZIP Code Phon e Number [phone] [place] [address] LABS (ABNORMAL) Glucose by meter (02/03/2014 9:55 [...] CDT Migel JONES POCT Performing Organization Address City/[facility]/ZIP Code Phon e Number FV POINT OF [...] LAB - BEAKER POCT Performing Organization Address City/[facility]/ZIP Code Phon e Number FV POINT OF [...] LAB - BEAKER POCT Performing Organization Address [facility] Phon e Number FV POINT OF CARE TEST, GLUCOSE POINT OF CARE TEST, GLUCOSE Potassium (02/03/2014 6:52 PM CDT) athologist Signature Potassium 4.7 3.4 - 5.3 COUNTS INCLUDE 234 BEDS AT [facility] mmol/L [facility]AMP[facility] LABS Specimen Anatomical Collection Method Collection Time Receive d Time (Source) Location / / Volume Laterality Blood specimen 02/03/2014 6:52 PM 014 6:53 (specimen) CDT PM CDT Caitlin Owens MD LAB - BLOOD ORDERABLES Performing Organization Address [facility]/ZIP Code Phon e Number [address] LABS (ABNORMAL) Hemoglobin (02/03/2014 6:52 PM CDT) athologist Signature Hemoglobin 9.6 (L) 13.3 - 17.7 COUNTS INCLUDE 234 BEDS AT [facility] g/dL [facility]AMP[facility] LABS Specimen Anatomical Collection Method Collection Time Receive d Time (Source) Location / / Volume Laterality Blood specimen 02/03/2014 6:52 PM 014 6:53 (specimen) CDT PM CDT Caitlin Owens MD LAB - BLOOD ORDERABLES Performing Organization Address City/[facility] [place] [address] [facility] LABS (ABNORMAL) Glucose by meter (02/03/2014 [...] LAB - BEAJ POCT Performing Organization Address City/[facility]/ZIP Code Phon e Number FV POINT OF [...] athologist Signature Potassium 4.7 3.4 - 5.3 COUNTS INCLUDE 234 BEDS AT [facility] mmol/L [facility]AMP[facility] LABS Specimen Anatomical Collection Method Collection Time Receive d Time (Source) Location / / Volume Laterality Blood specimen 02/03/2014 1:41 PM 014 1:43 (specimen) CDT PM CDT Caitlin Owens MD LAB - BLOOD ORDERABLES Performing Organization Address City/[facility]/ZIP Code Phon e Number [address] LABS (ABNORMAL) Hemoglobin (02/03/2014 1:41 PM CDT) athologist Signature Hemoglobin 9.8 (L) 13.3 - 17.7 COUNTS INCLUDE 234 BEDS AT [facility] g/dL [place] LABS Specimen Anatomical Collection Method Collection Time Receive d Time (Source) Location / / Volume Laterality Blood specimen 02/03/2014 1:41 PM 014 1:43 (specimen) CDT PM CDT Caitlin Owens MD LAB - BLOOD ORDERABLES Performing Organization Address City/[facility]/ZIP Code Phon e Number [address] LABS (ABNORMAL) Glucose by meter (02/03/2014 1:10 PM CDT) athologist Signature Glucose 135 (H) 60 - 99 POINT OF CARE mg/dL TEST, GLUCOSE Specimen Anatomical Collection Method Collection Time Receive d Time (Source) Location / / Volume Laterality 02/03/2014 1:10 PM 4 1:15 CDT PM CDT Migel ALRES - BEAJ POCT Performing Organization Address City/State/ZIP [...] LAB - BEAKER POCT Performing Organization Address City/[facility]/ZIP Code Phon e Number FV POINT OF [...] LAB - BEAKER POCT Performing Organization Address City/[facility] Phon e Number FV POINT OF CARE TEST, GLUCOSE POINT OF CARE TEST, GLUCOSE Potassium (02/03/2014 10:11 AM CDT) athologist Signature Potassium 4.8 3.4 - 5.3 COUNTS INCLUDE 234 BEDS AT [facility] mmol/L [facility]AMP[facility] LABS Specimen Anatomical Collection Method Collection Time Receive d Time (Source) Location / / Volume Laterality Blood specimen 02/03/2014 10:11 4 (specimen) AM CDT 10:23 AM CDT Caitlin Owens MD LAB - BLOOD ORDERABLES Performing Organization Address City/[facility] Code Phon e Number [address] LABS (ABNORMAL) Hemoglobin (02/03/2014 10:11 AM CDT) P athologist Signature Hemoglobin 9.7 (L) 13.3 - 17.7 COUNTS INCLUDE 234 BEDS AT [facility] g/dL [facility]AMP[facility] LABS Specimen Anatomical Collection Method Collection Time Receive d Time (Source) Location / / Volume Laterality Blood specimen 02/03/2014 10:11 4 (specimen) AM CDT 10:23 AM CDT Caitlin Owens MD LAB - BLOOD ORDERABLES Performing Organization Address City/[facility] Phon e Number [address] LABS (ABNORMAL) Glucose by meter (02/03/2014 9:58 AM CDT) P athologist Signature Glucose 168 (H) 60 - 99 POINT OF CARE mg/dL TEST, GLUCOSE Specimen Anatomical Collection Method Collection Time Receive d Time (Source) Location / / Volume Laterality 02/03/2014 9:58 AM 4 CDT 10:00 AM CDT Migel Merchant MD LAB - BEAJ POCT Performing Organization Address City/[facility] Phon e Number FV POINT OF [...] LARES - ROBERT POCT Performing Organization Address City/[facility] Phon e Number FV POINT OF [...] 8:10 CDT AM CDT Migel [facility]ES - [facility] PO[facility] Performing Organization Address City/State/ZIP Code [...] LARES - BEAJ POCT Performing Organization Address City/[facility]/ZIP Code Phon e Number FV POINT OF CARE TEST, GLUCOSE POINT OF CARE TEST, GLUCOSE (ABNORMAL) Basic metabolic panel (02/03/2014 5:38 AM CDT) Patholo gist Method Time Signature Sodium 141 133 - 144 [facility] mmol/L [facility] Potassium 4.4 3.4 - 5.3 [facility] mmol/L [facility] Chloride 105 94 - 109 [facility] mmol/L [facility] [place] [facility] Carbon Dioxide 20 20 - 32 [facility] mmol/L [facility] Anion Gap 15 6 - 17 [facility] mmol/L [facility] LABS Glucose 170 (H) 60 - 99 [facility] mg/dL [facility] [place] [facility] Urea Nitrogen 49 (H) 7 - 30 [facility] mg/dL [facility] [place] [facility] Creatinine 6.38 (H) 0.66 - [facility] 1.25 mg/dL [facility] [place] [facility] GFR Estimate 9 (L) >60 [facility] [...] Number [facility] [address] [place] [address] [facility] (ABNORMAL) Phosphorus (02/03/2014 5:38 AM CDT) P athologist Signature Phosphorus 4.7 (H) 2.5 - 4.5 COUNTS INCLUDE 234 BEDS AT THE [facility] mg/dL [place] [facility] Specimen Anatomical Collection Method Collection Time Receive d Time (Source) Location / / Volume Laterality Blood specimen 02/03/2014 5:38 AM 014 5:40 (specimen) CDT AM CDT Omaira Chavez PA-C LAB - BLOOD ORDERABLES Performing Organization Address City/State/ZIP Code Phon e Number [facility] [address] [place] [address] [facility] Magnesium (02/03/2014 5:38 AM CDT) athologist Signature Magnesium 2.0 1.6 - 2.3 COUNTS INCLUDE 234 BEDS AT THE [facility] mg/dL [place] [facility] Specimen Anatomical Collection Method Collection Time Receive d Time (Source) Location / / Volume Laterality Blood specimen 02/03/2014 5:38 AM 014 5:40 (specimen) CDT AM CDT Omaira Chavez PA-C LAB - BLOOD ORDERABLES Performing Organization Address City/State/ZIP Code Phon e Number [facility] [address] [place] [address] [facility]S (ABNORMAL) CBC with platelets differential (02/03/2014 5:38 AM CDT) Patholo gist Method Time Signature WBC 13.2 (H) 4.0 - [facility] 11.0 [place] 10e9/L [place] [facility] RBC Count 3.20 (L) 4.4 - 5.9 [facility] 10e12/L [facility] Hemoglobin 9.9 (L) 13.3 - [facility] 17.7 g/dL [facility] Hematocrit 30.2 (L) 40.0 - [facility] 53.0 % [facility] MCV 94 78 - 100 [facility] fl [facility] MCH 30.9 26.5 - [facility] 33.0 pg [facility] MCHC 32.8 31.5 - [facility] 36.5 g/dL [facility] RDW 14.5 10.0 - [facility] 15.0 % [facility] Platelet Count 108 (L) 150 - 450 [facility] 10e9/L [facility] Diff Method Automated [facility] Method [facility] % Neutrophils 96.9 % [facility] [place] [facility] % Lymphocytes 0.7 % [facility] % Monocytes 2.1 % [facility] [place] [facility] % Eosinophils 0.0 % [facility] % Basophils 0.1 % [facility] % Immature 0.2 % [facility] Granulocytes [facility] [place] [facility] Absolute 12.8 (H) 1.6 - 8.3 [facility] Neutrophil 10e9/L [facility] Absolute 0.1 (L) 0.8 - 5.3 [facility] Lymphocytes 10e9/L [facility] Absolute 0.3 0.0 - 1.3 [facility] Monocytes 10e9/L [facility] Absolute 0.0 0.0 - 0.7 [facility] Eosinophils 10e9/L [facility] Absolute 0.0 0.0 - 0.2 [facility] Basophils 10e9/L [facility] Abs Immature 0.0 0 - 0.4 [facility] Granulocytes 10e9/L [facility] Specimen Anatomical Collection Method Collection Time Receive d Time (Source) Location / / Volume Laterality Blood specimen 02/03/2014 5:38 AM 014 5:40 (specimen) CDT AM CDT Omaira Chavez PA-C LAB - BLOOD ORDERABLES Performing Organization Address City/[facility]/ZIP Code Phon e Number [address] LABS (ABNORMAL) Hemoglobin A1c (02/03/2014 5:38 AM CDT) Analysis Performed At Patho logist Time Signature Hemoglobin A1C 6.2 (H) 4.3 - 6.0 [facility] % [facility] Specimen Anatomical Collection Method Collection Time Receive d Time (Source) Location / / Volume Laterality Blood specimen 02/03/2014 5:38 AM 014 5:40 (specimen) CDT AM CDT Caitlin Owens MD LAB - BLOOD ORDERABLES Performing Organization Address City/[facility]/ZIP Code Phon e Number [address] LABS (ABNORMAL) Glucose by meter (02/03/2014 5:05 AM CDT) P athologist Signature Glucose 176 (H) 60 - 99 POINT OF CARE mg/dL TEST, GLUCOSE Specimen Anatomical Collection Method Collection Time Receive d Time (Source) Location / / Volume Laterality 02/03/2014 5:05 AM 4 5:10 CDT AM CDT Migel Merchant MD LAB - BEAJ POCT Performing Organization Address [facility] Phon e Number FV POINT OF [...] LAB - BEAJ POCT Performing Organization Address [facility] Phon e Number FV POINT OF [...] LAB - BEAJ POCT Performing Organization Address [facility] Code Phon e Number FV [...] LARES - BEAJ POCT Performing Organization Address [facility] Phon e Number FV POINT OF CARE TEST, GLUCOSE POINT OF CARE TEST, GLUCOSE Potassium (02/03/2014 1:18 AM CDT) athologist Signature Potassium 4.7 3.4 - 5.3 COUNTS INCLUDE 234 BEDS AT THE [facility] mmol/L [place] [facility] Specimen Anatomical Collection Method Collection Time Receive d Time (Source) Location / / Volume Laterality Blood specimen 02/03/2014 1:18 AM 014 1:20 (specimen) CDT AM CDT Caitlin Owens MD LAB - BLOOD ORDERABLES Performing Organization Address City/[facility]/ZIP Code Phon e Number [facility] [address] LABS (ABNORMAL) Hemoglobin (02/03/2014 1:18 AM CDT) athologist Signature Hemoglobin 9.8 (L) 13.3 - 17.7 COUNTS INCLUDE 234 BEDS AT THE [facility] g/dL [place] [facility] Specimen Anatomical Collection Method Collection Time Receive d Time (Source) Location / / Volume Laterality Blood specimen 02/03/2014 1:18 AM 014 1:20 (specimen) CDT AM CDT Caitlin Owens MD LAB - BLOOD ORDERABLES Performing Organization Address City/State/ZIP Code Phon e Number [address] LABS (ABNORMAL) Glucose by meter (02/03/2014 [...] CDT 12:15 AM CDT Migel Merchant MD [facility] POCT Performing Organization Address City/State/ZIP [...] athologist Signature Phosphorus 4.4 2.5 - 4.5 COUNTS INCLUDE 234 BEDS AT THE [facility] mg/dL CAMPUS LABS Specimen Anatomical Collection Method Collection Time Receive d Time (Source) Location / / Volume Laterality Blood specimen 02/02/2014 10:50 4 (specimen) PM CDT 11:06 PM CDT Caitlin Owens MD LAB - BLOOD ORDERABLES Performing Organization Address City/State/ZIP Code Phon e Number [facility] [address] LABS Magnesium (02/02/2014 10:50 PM CDT) athologist Signature Magnesium 1.8 1.6 - 2.3 COUNTS INCLUDE 234 BEDS AT THE [facility] mg/dL [place] [facility] Specimen Anatomical Collection Method Collection Time Receive d Time (Source) Location / / Volume Laterality Blood specimen 02/02/2014 10:50 4 (specimen) PM CDT 11:06 PM CDT Caitlin Owens MD LAB - BLOOD ORDERABLES Performing Organization Address City/[facility]/ZIP Code Phon e Number [facility] [address] LABS (ABNORMAL) Basic metabolic panel (02/02/2014 10:50 PM CDT) [facility] gist Method Time Signature Sodium 138 133 - 144 [facility] mmol/L [facility]S Potassium 4.5 3.4 - 5.3 [facility] mmol/L [facility] Chloride 104 94 - 109 [facility] mmol/L [facility]S Carbon Dioxide 25 20 - 32 [facility] mmol/L [facility] Anion Gap 10 6 - 17 [facility] mmol/L [facility] Glucose 134 (H) 60 - 99 [facility] mg/dL [facility] Urea Nitrogen 44 (H) 7 - 30 [facility] mg/dL [facility]S Creatinine 6.14 (H) 0.66 - [facility] 1.25 mg/dL [facility] GFR Estimate 9 (L) >60 [facility] mL/min/1.7 [place] m2 CAMPUS LABS GFR Estimate If 11 (L) >60 [facility] Black mL/min/1.7 [place] [address] CAMPUS LABS Calcium 8.8 8.5 - 10.4 [facility] mg/dL [facility] Specimen Anatomical Collection Method Collection Time Receive d Time (Source) Location / / Volume Laterality Blood specimen 02/02/2014 10:50 4 (specimen) PM CDT 11:06 PM CDT Caitlin Owens MD LAB - BLOOD ORDERABLES Performing Organization Address City/State/ZIP Code Phon e Number [id number] [place] [address] LABS (ABNORMAL) CBC with platelets differential (02/02/2014 10:50 PM CDT) [facility] Method Time Signature WBC 8.2 4.0 - [facility] 11.0 [facility] 10e9/L [place] [facility] RBC Count 3.34 (L) 4.4 - 5.9 [facility] 10e12/L [facility] Hemoglobin 10.3 (L) 13.3 - [facility] 17.7 g/dL [facility]S Hematocrit 30.9 (L) 40.0 - [facility] 53.0 % [facility]S MCV 93 78 - 100 [facility] fl [facility] MCH 30.8 26.5 - [facility] 33.0 pg [facility]S MCHC 33.3 31.5 - [facility] 36.5 g/dL [facility]S RDW 14.3 10.0 - [facility] 15.0 % [facility]S Platelet Count 79 (L) 150 - 450 [facility] 10e9/L [facility]S Diff Method Automated [facility] Method [facility] LABS % Neutrophils 96.7 % [facility]S % Lymphocytes 1.6 % [facility] % Monocytes 1.2 % [facility] % Eosinophils 0.4 % [facility] % Basophils 0.0 % [facility] % Immature 0.1 % [facility] Granulocytes [facility] Absolute 7.9 1.6 - 8.3 [facility] Neutrophil 10e9/L [facility] Absolute 0.1 (L) 0.8 - 5.3 [facility] Lymphocytes 10e9/L [facility]S Absolute 0.1 0.0 - 1.3 [facility] Monocytes 10e9/L [facility] Absolute 0.0 0.0 - 0.7 [facility] Eosinophils 10e9/L [facility] Absolute 0.0 0.0 - 0.2 [facility] Basophils 10e9/L [facility]S Abs Immature 0.0 0 - 0.4 [facility] Granulocytes 10e9/L [facility] Specimen Anatomical Collection Method Collection Time Receive d Time (Source) Location / / Volume Laterality Blood specimen 02/02/2014 10:50 4 (specimen) PM CDT 11:06 PM CDT Caitlin Owens MD LAB - BLOOD ORDERABLES Performing Organization Address City/State/ZIP Code Phon e Number [facility] [address] [place], [place] [phone] [place] [address] LABS (ABNORMAL) VENOUS PANEL (02/02/2014 10:09 PM CDT) [facility] gist Method Time Signature Ph Venous 7.31 (L) 7.32 - [facility] 7.43 pH [facility]S PCO2 Venous 52 (H) 40 - 50 [facility] mm Hg [facility] PO2 Venous 34 25 - 47 [facility] mm Hg [facility]S Bicarbonate 26 21 - 28 [facility] Venous mmol/L [facility] LABS Base Deficit 0.3 mmol/L [facility] Venous [facility] LABS Comment: Reference range: -7.7 to 1.9 F[facility] LABS Sodium 137 133 - 144 mmol/L [facility] LABS Potassium 4.4 3.4 - 5.3 mmol/L [facility]S Hemoglobin 10.0 (L) 13.3 - 17.7 g/dL [facility] LABS Glucose 116 (H) 60 - 99 mg/dL [facility] LABS Calcium Ionized Whole Blood 4.8 4.4 - 5.2 mg/dL [facility] Specimen Anatomical Collection Method Collection Time Receive d Time (Source) Location / / Volume Laterality 02/02/2014 10:09 02/02/2014 PM CDT 10:14 PM CDT Migel Merchant MD LAB - BLOOD ORDERABLES Performing Organization Address City/State/ZIP Code Phon e Number [address] [address] [facility] LABS (ABNORMAL) Glucose by meter (02/02/2014 [...] Venous 7.35 7.32 - [facility] 7.43 pH [facility]S PCO2 Venous 50 40 - 50 mm [facility] PO2 Venous 46 25 - 47 mm [facility] Hg [facility]S Bicarbonate 28 21 - 28 [facility] Venous mmol/L [facility] LABS Base Excess 1.8 mmol/L [facility] Venous [facility] LABS Comment: Reference range: -7.7 to 1.9 F[facility] 100% [facility] Sodium 141 133 - 144 mmol/L [facility]S Potassium 3.7 3.4 - 5.3 mmol/L [facility]S Hemoglobin 10.3 (L) 13.3 - 17.7 g/dL [facility] LABS Glucose 76 60 - 99 mg/dL [facility]S Calcium Ionized Whole Blood 4.8 4.4 - 5.2 mg/dL [facility] Specimen Anatomical Collection Method Collection Time Receive d Time (Source) Location / / Volume Laterality 02/02/2014 6:40 PM 4 6:44 CDT PM CDT Migel Merchant MD LAB - BLOOD ORDERABLES Performing Organization Address City/[facility]/ZIP Code Phon e Number [facility] [address] [place] [address] [facility] LABS Glucose by meter (02/02/2014 5:11 PM CDT) P athologist Signature Glucose 89 60 - 99 POINT OF CARE mg/dL TEST, GLUCOSE Specimen Anatomical Collection Method Collection Time Receive d Time (Source) Location / / Volume Laterality 02/02/2014 5:11 PM 4 5:15 CDT PM CDT Migel LARES - BEAJ POCT Performing Organization Address City/[facility]/ZIP Code Phon e Number FV POINT OF [...] LARES - BEAJ POCT Performing Organization Address City/[facility] Code Phon e Number FV [...] MARYELLEN Blood component (02/02/2014 2:07 PM CDT) COPsync Method Time Signature Unit Number [id number] [facility] Blood Red Blood [facility] Component Cells [facility] Leukocyte [place] [facility] Reduced Division 00 [facility] LABS Status of No longer [facility] Unit available [facility] 02/06/2014 HOSPITAL LAB 0300 Specimen Anatomical Collection Method Collection Time Receive d Time (Source) Location / / Volume Laterality 02/02/2014 2:07 PM 4 2:10 CDT PM CDT Caitlin Owens MD LABORATORY Performing Organization Address City/State/ZIP Code Phon e Number M [place] [address] [address] [place], [place] [address] [facility] LABS [facility] LAB Blood component (02/02/2014 2:07 PM CDT) COPsync Method Time Signature Unit Number [id number] [facility] Blood Red Blood [facility] Component Cells [facility] LABS Reduced Division 00 [facility] Number [facility] LABS Status of No longer [facility] Unit available [facility] 02/06/2014 HOSPITAL LAB 0300 Specimen Anatomical Collection Method Collection Time Receive d Time (Source) Location / / Volume Laterality 02/02/2014 2:07 PM 201 4 2:10 CDT PM CDT Caitlin Owens MD LABORATORY Performing Organization Address City/State/ZIP Code Phon e Number M [facility] [address] [place], [place] [address] HOSPITAL [facility] LABS [facility] LAB ABO/Rh type and screen (02/02/2014 2:07 PM CDT) Patholo gist Method Time Signature Units Ordered 2 [facility] ABO A [facility] RH(D) Pos [facility] Antibody Neg [facility] Screen [facility] LABS Test Valid [facility] Only [facility] BLOOD BANK Center,[facility] LAB w Hospital Specimen 02/05/2014 [facility] BLOOD BANK LAB Crossmatch Red Blood [facility] Cells [facility] LABS Specimen Anatomical Collection Method Collection Time Receive d Time (Source) Location / / Volume Laterality Blood specimen 02/02/2014 2:07 PM 014 2:10 (specimen) CDT PM CDT Caitlin Owens MD LAB - BLOOD BANK TEST ORDER Performing Organization Address City/State/ZIP Code Phon e Number [facility] [address] [place] [address] [facility] LABS COUNTS INCLUDE 234 BEDS AT THE [facility] BLOOD BANK LAB (ABNORMAL) Lipid Profile (02/02/2014 2:07 PM CDT) P athologist Signature Cholesterol 135 <200 mg/dL [facility] Comment: LDL Cholesterol is the primary guide to therapy. The NCEP recommends further evaluation of: patients with cholesterol greater than 200 mg/dL if additional risk facto rs are present, cholesterol greater than 240 mg/dL, triglycerides greater than 1 50 mg/dL, or HDL less than 40 mg/dL. Triglycerides 124 0 - 150 mg/dL [facility] LABS HDL Cholesterol 34 (L) >40 mg/dL [facility] LABS LDL Cholesterol Calculated 77 0 - 129 mg/dL [facility] Comment: LDL Cholesterol is the primary guide to therapy: LDL-cholesterol goal in high risk patients is <100 mg/dL and in very high risk patients is <70 mg/dL. VLDL-Cholesterol 25 0 - 30 mg/dL [facility] Cholesterol/HDL Ratio 4.0 0.0 - 5.0 [facility] Specimen Anatomical Collection Method Collection Time Receive d Time (Source) Location / / Volume Laterality Blood specimen 02/02/2014 2:07 PM 014 2:08 (specimen) CDT PM CDT Caitlin Owens MD LAB - BLOOD ORDERABLES Performing Organization Address City/[facility]/ZIP Code Phon e Number [facility] [address] LABS (ABNORMAL) Hemoglobin A1c (02/02/2014 2:07 PM CDT) Analysis Performed At Patho logist Time Signature Hemoglobin A1C 6.2 (H) 4.3 - 6.0 [facility] LABS Specimen Anatomical Collection Method Collection Time Receive d Time (Source) Location / / Volume Laterality Blood specimen 02/02/2014 2:07 PM 014 2:08 (specimen) CDT PM CDT Caitlin Owens MD LAB - BLOOD ORDERABLES Performing Organization Address City/[facility]/ZIP Code Phon e Number [facility] [address] [place], [place] [phone] [place] [address] LABS Hepatitis C antibody (02/02/2014 2:07 PM [...] Number [facility] [address] [place], [place] [id number] [place] [address] MICROBIOLOGY Hepatitis B core antibody IgM (02/02/2014 [...] Number [facility] [address] [place], [place] [phone] [place] [address] MICROBIOLOGY Hepatitis B surface antigen (02/02/2014 2:07 PM CDT) [facility] Signature Hep B Surface Negative NEG [facility] Agn MICROBIOLOGY Specimen Anatomical Collection Method Collection Time Receive d Time (Source) Location / / Volume Laterality Blood specimen 02/02/2014 2:07 PM 2 014 2:08 (specimen) CDT PM CDT Caitlin Owens MD LAB - BLOOD ORDERABLES Performing Organization Address City/State/ZIP Code Phon e Number [facility] [address] [place], [place] [id number] [place] [address] MICROBIOLOGY HIV Antigen Antibody Combo (02/02/2014 2:07 PM CDT) [facility] Signature HIV Antigen Nonreactive NR [facility] Antibody HIV-1 p24 Ag & HIV-1/HIV-2 Ab Not Detected [facility] LABS Specimen Anatomical Collection Method Collection Time Receive d Time (Source) Location / / Volume Laterality Blood specimen 02/02/2014 2:07 PM 2 014 2:08 (specimen) CDT PM CDT Caitlin Owens MD LAB - BLOOD ORDERABLES Performing Organization Address City/[facility]/ZIP Code Phon e Number [facility] [address] LABS EBV Capsid Antibody IgM (02/02/2014 2:07 PM CDT) [facility] Signature EBV Capsid <0.2 0.0 - 0.8 [facility] Antibody IgM No detectable antibody. AI [facility] [place] [facility] Specimen Anatomical Collection Method Collection Time Receive d Time (Source) Location / / Volume Laterality Blood specimen 02/02/2014 2:07 PM 2 014 2:08 (specimen) CDT PM CDT Caitlin Owens MD LAB - BLOOD ORDERABLES Performing Organization Address City/[facility]/ZIP Code Phon e Number [facility] [address] [place], [place] [phone] [place] [address] LABS (ABNORMAL) EBV Capsid Antibody IgG (02/02/2014 2:07 PM CDT) Patholo gist Method Time Signature EBV Capsid >8.0 0.0 - 0.8 [facility] Antibody IgG Positive, suggests recent or past exposure [facility] (H) [place] LABS Specimen Anatomical Collection Method Collection Time Receive d Time (Source) Location / / Volume Laterality Blood specimen 02/02/2014 2:07 PM 014 2:08 (specimen) CDT PM CDT Caitlin Owens MD LAB - BLOOD ORDERABLES Performing Organization Address City/[facility]/ZIP Code Phon e Number [facility] [address] LABS CMV antibody IgM (02/02/2014 2:07 PM CDT) Analysis Performed At Patho logist Time Signature CMV Antibody <0.2 0.0 - 0.8 [facility] IgM Negative [facility] LABS Specimen Anatomical Collection Method Collection Time Receive d Time (Source) Location / / Volume Laterality Blood specimen 02/02/2014 2:07 PM 014 2:08 (specimen) CDT PM CDT Caitlin Owens MD LAB - BLOOD ORDERABLES Performing Organization Address City/[facility]/ZIP Code Phon e Number [facility] [address] LABS (ABNORMAL) CMV Antibody IgG (02/02/2014 2:07 PM CDT) P athologist Signature CMV Antibody 7.8 (H) 0.0 - 0.8 [facility] IgG [facility] LABS Comment: Positive Specimen Anatomical Collection Method Collection Time Receive d Time (Source) Location / / Volume Laterality Blood specimen 02/02/2014 2:07 PM 014 2:08 (specimen) CDT PM CDT Caitlin Owens MD LAB - BLOOD ORDERABLES Performing Organization Address City/[facility]/ZIP Code Phon e Number [address] LABS (ABNORMAL) Comprehensive metabolic panel (02/02/2014 2:07 PM CDT) Patholo gist Method Time Signature Sodium 141 133 - 144 [facility] mmol/L [facility] LABS Potassium 4.2 3.4 - 5.3 [facility] mmol/L [facility] LABS Chloride 101 94 - 109 [facility] mmol/L [facility] Carbon Dioxide 26 20 - 32 [facility] mmol/L [facility] LABS Anion Gap 13 6 - 17 [facility] mmol/L [facility] LABS Glucose 112 (H) 60 - 99 [facility] mg/dL [facility] LABS Urea Nitrogen 42 (H) 7 - 30 [facility] mg/dL [facility] LABS Creatinine 6.03 (H) 0.66 - [facility] 1.25 [place] mg/dL CAMPUS LABS GFR Estimate 9 (L) >60 [facility] mL/min/1. [place] 7m2 [place] LABS GFR Estimate If 11 (L) >60 [facility] Black mL/min/1. [place] [address] CAMPUS LABS Calcium 9.9 8.5 - [facility] 10.4 [place] mg/dL CAMPUS LABS Bilirubin Total 0.7 0.2 - 1.3 [facility] mg/dL [facility] LABS Albumin 4.2 3.3 - 4.9 [facility] g/dL [facility] LABS Protein Total 7.5 6.8 - 8.8 [facility] g/dL [facility] LABS Alkaline 88 40 - 150 [facility] Phosphatase U/L [facility] LABS ALT 33 0 - 70 [facility] U/L [facility] LABS AST 18 0 - 45 [facility] U/L [facility] LABS Specimen Anatomical Collection Method Collection Time Receive d Time (Source) Location / / Volume Laterality Blood specimen 02/02/2014 2:07 PM 014 2:08 (specimen) CDT PM CDT Caitlin Owens MD LAB - BLOOD ORDERABLES Performing Organization Address City/State/ZIP Code Phon e Number [phone] [place] [address] LABS (ABNORMAL) CBC with platelets differential (02/02/2014 2:07 PM CDT) [facility] gist Method Time Signature WBC 6.3 4.0 - [facility] 11.0 [place] 10e9/L [place] LABS RBC Count 3.71 (L) 4.4 - 5.9 [facility] 10e12/L [facility] LABS Hemoglobin 11.5 (L) 13.3 - [facility] 17.7 g/dL [facility] LABS Hematocrit 33.7 (L) 40.0 - [facility] 53.0 % [facility] [place] [facility] MCV 91 78 - 100 [facility] fl [facility] LABS MCH 31.0 26.5 - [facility] 33.0 pg [facility] [place] [facility] MCHC 34.1 31.5 - [facility] 36.5 g/dL [facility] LABS RDW 14.0 10.0 - [facility] 15.0 % [facility] Platelet Count 110 (L) 150 - 450 [facility] 10e9/L [facility] LABS Diff Method Automated [facility] Method [facility] % Neutrophils 52.4 % [facility] % Lymphocytes 32.1 % [facility] % Monocytes 7.9 % [facility] % Eosinophils 7.1 % [facility] % Basophils 0.3 % [facility] % Immature 0.2 % [facility] Granulocytes [facility] Absolute 3.3 1.6 - 8.3 [facility] Neutrophil 10e9/L [facility] Absolute 2.0 0.8 - 5.3 [facility] Lymphocytes 10e9/L [facility] Absolute 0.5 0.0 - 1.3 [facility] Monocytes 10e9/L [facility] Absolute 0.5 0.0 - 0.7 [facility] Eosinophils 10e9/L [facility] Absolute 0.0 0.0 - 0.2 [facility] Basophils 10e9/L [facility] Abs Immature 0.0 0 - 0.4 [facility] Granulocytes 10e9/L [facility] Specimen Anatomical Collection Method Collection Time Receive d Time (Source) Location / / Volume Laterality Blood specimen 02/02/2014 2:07 PM 014 2:08 (specimen) CDT PM CDT Caitlin Owens MD LAB - BLOOD ORDERABLES Performing Organization Address City/[facility] Code Phon e Number [address] LABS Creatinine urine calculation only (02/02/2014 2:00 PM CDT) P athologist Signature Creatinine 88 mg/dL COUNTS INCLUDE 234 BEDS AT THE [facility] Urine [place] [facility] Specimen Anatomical Collection Method Collection Time Receive d Time (Source) Location / / Volume Laterality 02/02/2014 2:00 PM 4 2:12 CDT PM CDT Caitlin Owens MD LAB - URINE ORDERABLES Performing Organization Address City/[facility] Phon e Number [address] LABS (ABNORMAL) Urine culture (02/02/2014 2:00 PM CDT) Component Value Ref Test Analysis Performed At Patholo gist Range Method Time Signature Specimen Midstream Urine [facility] Description [facility] Special Specimen received [facility] Requests in preservative MICROBIOLOGY Culture Micro <10,000 colonies/mL Gram pos itive cocci No further identification Susceptibility [facility] testing not routinely done DC CROBIOLOGY <10,000 colonies/mL Strain 2 Gram positive [...] MICRO GENERAL ORDERABL ES Performing Organization Address City/[facility] Code Phon e Number [address] LABS [facility] MICROBIOLOGY (ABNORMAL) Protein random urine (02/02/2014 2:00 PM CDT) [facility] Method [place] Signature Protein Random 1.89 g/L [facility] Urine [facility] Protein Total 2.15 (H) 0 - 0.2 [facility] Urine g/gr g/g Cr [facility] LABS Specimen Anatomical Collection Method Collection Time Receive d Time (Source) Location / / Volume Laterality Urine specimen URINE SPECIMEN 02/02/2014 2:00 PM 02/02 2:12 (specimen) OBTAINED BY CLEAN CDT PM CDT CATCH PROCEDURE / Unknown Caitlin Owens MD LAB - URINE ORDERABLES Performing Organization Address City/[facility] Phon e Number [address] LABS (ABNORMAL) Routine UA with microscopic (02/02/2014 2:00 PM CDT) [facility] Method Time Signature Color Urine Light Yellow [facility] Appearance Urine Clear [facility] Glucose Urine 70 (A) NEG mg/dL [facility] Bilirubin Urine Negative NEG [facility] Ketones Urine Negative NEG mg/dL [facility] Specific [place] 1.008 1.003 - [facility] Urine 1.035 [facility] Blood Urine Negative NEG [facility] pH Urine 8.0 (H) 5.0 - 7.0 [facility] pH [facility] [place] [facility] Protein Albumin 100 (A) NEG mg/dL [facility] Urine [facility] Urobilinogen Normal 0.0 - 2.0 [facility] mg/dL mg/dL [facility] Nitrite Urine Negative NEG [facility] Leukocyte Negative NEG [facility] Esterase Urine [facility] Source Clean catch [facility] urine [facility] WBC Urine 1 0 - 2 [facility] /HPF [facility] RBC Urine 0 0 - 2 [facility] /HPF [facility] Squamous <1 0 - 1 [facility] Epithelial /HPF /HPF [place] Urine [place] [facility] Specimen Anatomical Collection Method Collection Time Receive d Time (Source) Location / / Volume Laterality Urine specimen URINE SPECIMEN 02/02/2014 2:00 PM 02/02 2:12 (specimen) OBTAINED BY CLEAN CDT PM CDT CATCH PROCEDURE / Unknown Caitlin Owens MD LAB - URINE ORDERABLES Performing Organization Address City/State/ZIP Code Phon e Number [phone] [place] [address] LABS (ABNORMAL) Glucose by meter (02/02/2014 1:59 PM CDT) athologist Signature Glucose 115 (H) 60 - 99 POINT OF CARE mg/dL TEST, GLUCOSE Specimen Anatomical Collection Method Collection Time Receive d Time (Source) Location / / Volume Laterality 02/02/2014 1:59 PM 4 2:05 CDT PM CDT Migel Merchant MD LAB - BEAKER POCT Performing Organization Address City/[facility]/ZIP Code Phon e Number [facility]V POINT OF CARE TEST, GLUCOSE POINT OF CARE TEST, GLUCOSE EKG 12-lead, tracing only (02/02/2014 1:58 PM CDT) [facility] gist Method Time Signature [...] dose, When verbally ordered by the prescriber. [place] throat with 1-4 sprays 5 minutes prior [...] (Not Gi isael - Provider: Lynne Gatica [facility] - Reason: Other - Comment: Dose already [...] draw. documented in this encounter Care Teams All Around Gear Machine Operator Relationship Specialty Start Date End Date Momo Forbes PCP - General [facility] Practice 01/02/14 [facility] [address] [place], [place] [id number] Ingrid Santana, RN Registered Nurse Transplant 02/10/12 10/01/15 documented as of this encounter
--- OUTSIDE RECORDS SUMMARY | 2022-04-14 11:14 | XMS_ITS | Encounter Summary ---
:1950 Author Organization [place] Address [facility] [place] [address] Care Team Providers Name Role Phone Toña [...] on filedocumented in this encounter Care Teams Cambering Machine Operator Relationship Specialty Start Date End Date Toña Jones MD PCP - General Nephrology 11/25/11 01/01/14 Momo Forbes PCP - General Family Practice 01/02/14 [facility] [address] [place] [address] Ingrid Santana, RN Registered Nurse Transplant 02/10/12 10/01/15 documented as of this encounter
--- OUTSIDE RECORDS SUMMARY | 2022-04-14 11:14 | XMS_ITS | Encounter Summary ---
:1950 Author Organization [place] Address [address] [place] [address] Care Team Providers Name Role Phone Toña Jones MD Primary Care Provider Ingrid Santana RN Unavailable Encounter Details Date Type Department Care Team Description 11/05/2013 Results Only LABORATORY RESULTS Barbara Bradley MD [address] [place], [place] [address] Social History Tobacco Use [...] I Single Antigen (11/05/2013 7:20 AM CDT) [facility] Method Time Signature SA1 Test SA HI [...] Phon e Number [facility] Immunology/Histocompatabil [place], [place] [address] ity [facility] [address] [facility] [address] Building, Room 3-580 HISTOTRAC documented in this encounter Visit Diagnoses Not on filedocumented in this encounter Care Teams Certified Driver Examiner Relationship Specialty Start Date End Date Toña Jones MD PCP - General Nephrology 11/25/11 01/01/14 Ingrid Santana, RN Registered Nurse Transplant 02/10/12 10/01/15 documented as of this encounter
--- OUTSIDE RECORDS SUMMARY | 2022-04-14 11:14 | XMS_ITS | Encounter Summary ---
:1950 Author Organization [place] Address [address] [place] [address] Care Team Providers Name Role Phone Toña Jones MD Primary Care Provider Ingrid Santana RN Unavailable Encounter Details Date Type Department Care Team Description 04/13/2012 Results Only LABORATORY RESULTS Mingo Dangelo MD [address] [facility] [address] [place] [address] (Wo rk) Social History Tobacco [...] HLA Lukasz Class I Single Antigen (04/13/2012) [facility] Method Time Signature SA1 Test Single [...] Phon e Number [facility] Immunology/Histocompatabil [place], [place] [address] ity [facility] [address] Building, Room [address]-580 HISTOTRAC documented in this encounter Visit Diagnoses Not on filedocumented in this encounter Care Teams Laundry Supervisor Relationship Specialty Start Date End Date Toña Jones MD PCP - General Nephrology 11/25/11 01/01/14 Ingrid Santana RN Registered Nurse Transplant 02/10/12 10/01/15 documented as of this encounter
--- OUTSIDE RECORDS SUMMARY | 2022-04-14 11:14 | XMS_ITS | Encounter Summary ---
:1950 Author Organization [place] Address [address] [place] [address] Care Team Providers Name Role Phone Toña Jones MD Primary Care Provider Ingrid Santana RN Unavailable Encounter Details Date Type Department Care Team Description 01/17/2013 Results Only LABORATORY RESULTS Barbara Bradley MD [address] [place], [place] [address] Social History Tobacco Use [...] HLA Lukasz Class II Single Antigen (01/17/2013) [facility] Method Time Signature SA2 Test Single [...] Phon e Number [facility] Immunology/Histocompatabil [place], [place] [address] ity [facility] [address], Room [address]-580 HISTOTRAC documented in this encounter Visit Diagnoses Not on filedocumented in this encounter Care Teams House Cleaner Relationship Specialty Start Date End Date Toña Jones MD PCP - General Nephrology 11/25/11 01/01/14 Ingrid Santana RN Registered Nurse Transplant 02/10/12 10/01/15 documented as of this encounter
--- OUTSIDE RECORDS SUMMARY | 2022-04-14 11:14 | XMS_ITS | Encounter Summary ---
:1950 Author Organization [place] Address [facility] [place] [address] Care Team Providers Name Role Phone Toña Jones MD Primary Care Provider Ingrid Santana RN Unavailable Encounter Details Date Type Department Care Team Description 12/10/2013 Telephone Transplant Surgery C Nazia Bledsoe LPN 2nd Floor, Clinic [address] [place] [address] [phone] Social History Tobacco Use Types Packs/Day [...] on filedocumented in this encounter Care Teams China Decorator Relationship Specialty Start Date End Date Toña Jones MD PCP - General Nephrology 11/25/11 Ingrid Santana, RN Registered Nurse Transplant 02/10/12 documented as of this encounter
--- OUTSIDE RECORDS SUMMARY | 2022-04-14 11:14 | XMS_ITS | Encounter Summary ---
:1950 Author Organization [place] Address [address] [place] [address] Care Team Providers Name Role Phone Ingrid Santana RN Unavailable Momo Forbes Primary Care Provider Reason for Visit Reason Onset Date Comments Pre Visit Planning - Done 01/30/2014 EKG: pre op: [age] yo M, here for continued clearance for possib le kidney txp. Encounter Details Date Type Department Care Team Description 01/30/2014 PRE VISIT [facility] Barbara Bradley Pre Visit Planning - Physicians Orestes Licona MD Done (EKG: pre op: 63 [address] [place] M, [place] [address] continued clearance 4th Floor, Clinic 4B for possible kidney [facility] [address] txp.) [address] [place] [phone] Social History Tobacco Use Types Packs/Day Years [...] On HD since Aug 2011. No past NC, stress tests or coronary angiogorams. No chest [...] disease documented in this encounter Care Teams Laborer Salvage Relationship Specialty Start Date End Date Momo Forbes PCP - General Family Practice 01/02/14 [facility] [address] [place] [address] Ingrid Santana, RN Registered Nurse Transplant 02/10/12 10/01/15 documented as of this encounter
--- OUTSIDE RECORDS SUMMARY | 2022-04-14 11:14 | XMS_ITS | Encounter Summary ---
:1950 Author Organization [place] Address [facility] [place] [address] Care Team Providers Name Role Phone Toña [...] on filedocumented in this encounter Care Teams Soda Clerk Relationship Specialty Start Date End Date Toña Jones MD PCP - General Nephrology 11/25/11 01/01/14 Momo Forbes PCP - General Family Practice 01/02/14 [facility] [address] [place] [address] Ingrid Santana, RN Registered Nurse Transplant 02/10/12 10/01/15 documented as of this encounter
--- OUTSIDE RECORDS SUMMARY | 2022-04-14 11:14 | XMS_ITS | Encounter Summary ---
:1950 Author Organization [place] Address [address] [place] [address] Care Team Providers Name Role Phone Toña Jones MD Primary Care Provider Ingrid Santana RN Unavailable Encounter Details Date Type Department Care Team Description 10/11/2012 Results Only LABORATORY RESULTS Barbara Bradley MD [address] [place], [place] [address] Social History Tobacco Use [...] HLA Lukasz Class II Single Antigen (10/11/2012) [facility] Method Time Signature SA2 Test [...] / Volume Laterality 10/11/2012 10/12/2012 1:03 PM ABALONE DIVER Barbara Bradley MD LAB - IMMUNOLOGY ORDERABLES Performing Organization Address City/State/ZIP Code Phon e Number [facility] Immunology/Histocompatabil [place], [place] [address] [facility] C[facility] [address] Building, Room 3-580 HISTOTRAC documented in this encounter Visit Diagnoses Not on filedocumented in this encounter Care Teams Air Brush Artist Relationship Specialty Start Date End Date Toña Jones MD PCP - General Nephrology 11/25/11 01/01/14 Ingrid Santana RN Registered Nurse Transplant 02/10/12 10/01/15 documented as of this encounter
--- OUTSIDE RECORDS SUMMARY | 2022-04-14 11:14 | XMS_ITS | Encounter Summary ---
:1950 Author Organization [place] Address [facility] [place] [address] Care Team Providers Name Role Phone Toña Jones MD Primary Care Provider Ingrid Santana RN Unavailable Encounter Details Date Type Department Care Team Description 07/03/2012 Results Only LABORATORY RESULTS Barbara Bradley MD [address] [place], [place] [address] Social History Tobacco Use [...] in this encounter Results Virtual Crossmatch (07/03/2012) [facility] Method Time Signature Crossmatch Donor:GEOVANYKATHARINEABRAHAM Figueredo ? Crossmatch Date:07/24/2012 HISTOTRAC Result (Note) Serum Date ??Test ?Result ? Donor Specific Antibody ?Comments 07/03/2012 ??Class I/Virtxm1 ? DSA ?None ? 07/03/2012 ??Class II/Virtxm 1 ?DSA ?None ? Specimen (Source) Anatomical Collection Method Collection Time Re ceived Time Location / / Volume Laterality 07/03/2012 07/05/2012 1:57 PM INSTRUCTIONAL SUPPORT SPECIALIST Barbara Bradley MD LAB - IMMUNOLOGY ORDERABLES Performing Organization Address City/State/ZIP Code Phon e Number [facility] Immunology/Histocompatabil [place], [place] [address] [facility] [address] Building, Room 3-580 HISTOTRAC documented in this encounter Visit Diagnoses Not on filedocumented in this encounter Care Teams Funeral Director/Embalmer/Owner Relationship Specialty Start Date End Date Toña Jones MD PCP - General Nephrology 11/25/11 01/01/14 Ingrid Santana RN Registered Nurse Transplant 02/10/12 10/01/15 documented as of this encounter
--- OUTSIDE RECORDS SUMMARY | 2022-04-14 11:14 | XMS_ITS | Encounter Summary ---
:1950 Author Organization [place] Address [address] [place] [address] Care Team Providers Name Role Phone Toña Jones MD Primary Care Provider Ingrid Santana RN Unavailable Encounter Details Date Type Department Care Team Description 07/30/2013 Results Only LABORATORY RESULTS Mingo Dangelo MD [address] [facility] [address] [place] [address] (Wo rk) Social History Tobacco [...] Priority Date/Time Associated Diagnosis Comme nts HLA LUKAZS CLASS II Routine 07/30/2013 Results for this SINGLE ANTIGEN procedure are in the results section . documented in this encounter Results HLA Lukasz Class II Single Antigen (07/30/2013) [facility] Method Time Signature SA2 Test Single [...] / Volume Laterality 07/30/2013 07/31/2013 2:10 PM MOTOR VEHICLE EMISSIONS INSPECTOR Mingo Dangelo MD LAB - IMMUNOLOGY ORDERABLES Performing Organization Address City/State/ZIP Code Phon e Number [facility] Immunology/Histocompatabil [place], [place] [address] ity [facility] [address], Room 3-580 HISTOTRAC documented in this encounter Visit Diagnoses Not on filedocumented in this encounter Care Teams Gambling Monitor Relationship Specialty Start Date End Date Toña Jones MD PCP - General Nephrology 11/25/11 01/01/14 Ingrid Santana RN Registered Nurse Transplant 02/10/12 10/01/15 documented as of this encounter
--- OUTSIDE RECORDS SUMMARY | 2022-04-14 11:14 | XMS_ITS | Encounter Summary ---
:1950 Author Organization [place] Address [facility] [place] [address] Care Team Providers Name Role Phone Ingrid Santana RN Unavailable Momo Forbes Primary Care Provider Encounter Details Date Type Department Care Team Description 01/21/2014 Results Only LABORATORY RESULTS Mingo Dangelo MD [address] [facility] [address] [place] [address] (Wo rk) Social History Tobacco [...] Results HLA Flow T/B Crossmatch Allo (01/21/2014) [facility] Method Time Signature Crossmatch Donor:[id number], ?Crossmatch Date:02/02/2014 HISTOTRAC Result (Note) Serum Date [...] Phon e Number [facility] Immunology/Histocompatabil [place], [place] [address] ity [facility] [address] [facility] [address] Building, Room 3-580 HISTOTRAC documented in this encounter Visit Diagnoses Not on filedocumented in this encounter Care Teams Assistant Financial Accountant Relationship Specialty Start Date End Date Momo Forbes PCP - General Family Practice 01/02/14 [facility] [address] [place] [address] Ingrid Santana, RN Registered Nurse Transplant 02/10/12 10/01/15 documented as of this encounter
--- OUTSIDE RECORDS SUMMARY | 2022-04-14 11:14 | XMS_ITS | Encounter Summary ---
:1950 Author Organization [place] Address [address] [place] [address] Care Team Providers Name Role Phone Ingrid Santana RN Unavailable Momo Forbes Primary Care Provider Encounter Details Date Type Department Care Team Description 01/20/[address] [facility], [facility] jm [place] [address] [phone] [place] [address] [address] [place] [address] (Wo rk) Social History Tobacco [...] Signature Tacrolimus Last 02/14/2014 [facility] Dose 2030 [facility] Tacrolimus 5.9 5.0 - [facility] Level 15.0 ug/L [facility] Comment: Tacrolimus Reference Range Kidney Transplant [...] Number [facility] [address] [place] [address] [facility] documented in this encounter Visit Diagnoses Not on filedocumented in this encounter Care Teams Venue Coordinator Relationship Specialty Start Date End Date Momo Forbes PCP - General Family Practice 01/02/14 [facility] [address] [place] [phone] Ingrid Santana, RN Registered Nurse Transplant 02/10/12 documented as of this encounter
--- OUTSIDE RECORDS SUMMARY | 2022-04-14 11:14 | XMS_ITS | Encounter Summary ---
:1950 Author Organization [place] Address [address] [facility] [place] [address] Care Team Providers Name Role Phone Toña [...] Ump Sot Surgery 2nd Floor, Clinic 2A [place] [phone] Referral ID Status Reason Start Date Expiration Date Visits Requ ested Visits Authorized [id number] Closed 12/10/2013 06/08/2014 1 1 Consultation - Closed Specialty Diagnoses / Procedures Referred By Contact Refer red To Contact Diagnoses Organ transplant candidate ESRD (end stage renal disease) on dialysis (H) DM (diabetes mellitus), type 2 (H) [facility] Sot Surgery [facility] Floor, [facility] [address] [phone] Referral ID Status Reason Start Date Expiration Date Visits Requ ested Visits Authorized [id number] Closed 12/10/2013 06/08/2014 1 1 Encounter Details Date Type Department Care Team Description 12/07/2013 Orders Only Transplant Surgery Nazia March LPN Organ transplant candidate (Primary Dx); Clinic Screening for other and unsp ecified cardiovascular conditions; 2nd Floor, Clinic 2A ESRD (end stage renal diseas e) on dialysis (H); Tommy Wilburn DM (madeleine betes mellitus), type 2 (H) [address] [phone] Social History Tobacco Use Types [...] uncontrolled documented in this encounter Care Teams Plastic Battery Assembler Relationship Specialty Start Date End Date Toña Jones MD PCP - General Nephrology 11/25/11 01/01/14 Siers, Ingrid A, RN Registered Nurse Transplant 02/10/12 10/01/15 documented as of this encounter
--- OUTSIDE RECORDS SUMMARY | 2022-04-14 11:14 | XMS_ITS | Encounter Summary ---
:1950 Author Organization [place] Address [address] [place] [address] Care Team Providers Name Role Phone Toña Jones MD Primary Care Provider Ingrid Santana RN Unavailable Encounter Details Date Type Department Care Team Description 10/11/2012 Results Only LABORATORY RESULTS Barbara Bradley MD [address] [place], [place] [address] Social History Tobacco Use [...] HLA Lukasz Class I Single Antigen (10/11/2012) [facility] gist Method Time Signature SA1 Test [...] / Volume Laterality 10/11/2012 10/12/2012 1:03 PM DIE REAMER Barbara Bradley MD LAB - IMMUNOLOGY ORDERABLES Performing Organization Address City/State/ZIP Code Phon e Number [facility] Immunology/Histocompatabil [place], [place] [address] ity [facility] [address], Room 3-580 HISTOTRAC documented in this encounter Visit Diagnoses Not on filedocumented in this encounter Care Teams Supervisor Of Way Relationship Specialty Start Date End Date Toña Jones MD PCP - General Nephrology 11/25/11 01/01/14 Ingrid Santana RN Registered Nurse Transplant 02/10/12 10/01/15 documented as of this encounter
--- OUTSIDE RECORDS SUMMARY | 2022-04-14 11:14 | XMS_ITS | Encounter Summary ---
:1950 Author Organization [place] Address [facility] [place] [address] Care Team Providers Name Role Phone Toña [...] (madeleine betes mellitus), type 2 (H) Building [address] [place] [phone] Social History Tobacco Use Types Packs/Day Years [...] uncontrolled documented in this encounter Care Teams Oiler Bander Relationship Specialty Start Date End Date Toña Jones MD PCP - General Nephrology 11/25/11 01/01/14 Ingrid Santana RN Registered Nurse Transplant 02/10/12 10/01/15 documented as of this encounter
--- OUTSIDE RECORDS SUMMARY | 2022-04-14 11:14 | XMS_ITS | Encounter Summary ---
:1950 Author Organization [place] Address [facility] [place] [address] Care Team Providers Name Role Phone Toña Jones MD Primary Care Provider Ingrid Santana RN Unavailable Reason for Visit Reason Onset Date Comments Transplant 12/19/2013 Kidney waitlist appo intments Encounter Details Date Type Department Care Team Description 12/19/2013 Telephone The Transplant Edda Nash, Provider Transplant (Kidney 2nd Floor, Clinic 2A waitlist appointments) Tommy [address] [phone] Social History Tobacco Use Types Packs/Day Years [...] on filedocumented in this encounter Care Teams Cottage Master Relationship Specialty Start Date End Date Toña Jones MD PCP - General Nephrology 11/25/11 01/01/14 Ingrid Santana, RN Registered Nurse Transplant 02/10/12 10/01/15 documented as of this encounter
--- OUTSIDE RECORDS SUMMARY | 2022-04-14 11:14 | XMS_ITS | Encounter Summary ---
:1950 Author Organization [place] Address [address] [place] [address] Care Team Providers Name Role Phone Ingrid Santana RN Unavailable Momo Forbes Primary Care Provider Encounter Details Date Type Department Care Team Description 01/21/2014 Results Only LABORATORY RESULTS Mingo Dangelo MD [facility] [address] [place] [address] (Wo rk) Social History Tobacco [...] HLA Lukasz Class II Single Antigen (01/21/2014) [facility] Method Time Signature SA2 Test SA [...] Phon e Number [facility] Immunology/Histocompatabil [place], [place] [address] ity ealth [facility] [address], Room 3-580 HISTOTRAC documented in this encounter Visit Diagnoses Not on filedocumented in this encounter Care Teams Digital Media Strategist Relationship Specialty Start Date End Date Momo Forbes PCP - General Family Practice 01/02/14 [facility] [address] [place] [address] Ingrid Santana, RN Registered Nurse Transplant 02/10/12 10/01/15 documented as of this encounter
--- OUTSIDE RECORDS SUMMARY | 2022-04-14 11:14 | XMS_ITS | Encounter Summary ---
:1950 Author Organization [place] Address [address] [place] [address] Care Team Providers Name Role Phone Ingrid Santana RN Unavailable Momo Forbes Primary Care Provider Encounter Details Date Type Department Care Team Description 01/21/2014 Results Only LABORATORY RESULTS Mingo [facility]angelo MD [facility] [place] [address] (Wo rk) Social History Tobacco [...] HLA Lukasz Class I Single Antigen (01/21/2014) [facility] Method Time Signature SA1 Test [...] Phon e Number [facility] Immunology/Histocompatabil [place], [place] [address] ity [facility] [address], Room 3-580 HISTOTRAC documented in this encounter Visit Diagnoses Not on filedocumented in this encounter Care Teams Fire Captain Marine Relationship Specialty Start Date End Date Momo Forbes PCP - General Family Practice 01/02/14 [facility] [address] [place] [address] Ingrid Santana, RN Registered Nurse Transplant 02/10/12 10/01/15 documented as of this encounter
--- OUTSIDE RECORDS SUMMARY | 2022-04-14 11:14 | XMS_ITS | Encounter Summary ---
:1950 Author Organization [place] Address [facility] [place] [address] Care Team Providers Name Role Phone Toña Jones MD Primary Care Provider Ingrid Santana RN Unavailable Encounter Details Date Type Department Care Team Description 02/28/2013 Orders Only [facility] Molly Sanderson Organ transplant [address] [facility] candidate (Primary Dx) [place] [phone] Social History Tobacco Use Types Packs/Day Years [...] status documented in this encounter Care Teams City Tax Auditor Relationship Specialty Start Date End Date Toña Jones MD PCP - General Nephrology 11/25/11 01/01/14 Ingrid Santana RN Registered Nurse Transplant 02/10/12 10/01/15 documented as of this encounter
--- OUTSIDE RECORDS SUMMARY | 2022-04-14 11:14 | XMS_ITS | Encounter Summary ---
:1950 Author Organization [place] Address [facility] [address] Care Team Providers Name Role Phone Toña Jones MD Primary Care Provider Ingrid Santana RN Unavailable Encounter Details Date Type Department Care Team Description 08/25/2012 Results Only LABORATORY RESULTS Barbara Bradley MD [address] [place], [place] [address] Social History Tobacco Use [...] AM Results f or this CROSSMATCH ALLO RN CLINICAL DOCUMENTATION procedure ar e in the results section. documented in this encounter Results HLA Flow T/B Crossmatch Allo (08/25/2012 9:49 AM RN CLINICAL DOCUMENTATION) [facility] Method Time Signature Crossmatch Donor:ABRAHAM HICKEY [...] Laterality 08/25/2012 9:49 AM 01/04/201 3 9:06 RN CLINICAL DOCUMENTATION AM RN CLINICAL DOCUMENTATION Barbara Bradley MD LAB - IMMUNOLOGY ORDERABLES Performing Organization Address City/State/ZIP Code Phon e Number [facility] Immunology/Histocompatabil [place], [place] [address] ity ealth [facility] [address], Room 3-580 HISTOTRAC documented in this encounter Visit Diagnoses Not on filedocumented in this encounter Care Teams Project Manager Industrial Relationship Specialty Start Date End Date Toña Jones MD PCP - General Nephrology 11/25/11 01/01/14 Ingrid Santana, RN Registered Nurse Transplant 02/10/12 10/01/15 documented as of this encounter
--- OUTSIDE RECORDS SUMMARY | 2022-04-14 11:14 | XMS_ITS | Encounter Summary ---
:1950 Author Organization [place] Address [address] [place] [address] Care Team Providers Name Role Phone Toña Jones MD Primary Care Provider Ingrid Santana RN Unavailable Encounter Details Date Type Department Care Team Description 01/17/2013 Results Only LABORATORY RESULTS Barbara Bradley MD [address] [place], [place] [address] Social History Tobacco Use [...] HLA Lukasz Class I Single Antigen (01/17/2013) [facility] gist Method Time Signature SA1 Test [...] Phon e Number [facility]ORAT[facility] Immunology/Histocompatabil [place], [place] [address] [facility] C[facility] [address], Room 3-580 HISTOTRAC documented in this encounter Visit Diagnoses Not on filedocumented in this encounter Care Teams Flame Burner Relationship Specialty Start Date End Date Toña Jones MD PCP - General Nephrology 11/25/11 01/01/14 Ingrid Santana RN Registered Nurse Transplant 02/10/12 10/01/15 documented as of this encounter
--- OUTSIDE RECORDS SUMMARY | 2022-04-14 11:14 | XMS_ITS | Encounter Summary ---
:1950 Author Organization [place] Address [facility] [place] [address] Care Team Providers Name Role Phone Ingrid Santana RN Unavailable Momo Forbes Primary Care Provider Reason for Visit Reason Onset Date Comments Transplant 02/02/2014 Kidney Offer Encounter Details Date Type Department Care Team Description 02/02/2014 Telephone Transplant Surgery Carmelita Rosaroi Tran splant (Kidney Clinic RN Offer) 2nd Floor, Clinic [address] [phone] Social History Tobacco Use Types Packs/Day Years [...] on filedocumented in this encounter Care Teams Crayon Molding Machine Operator Relationship Specialty Start Date End Date Momo Forbes PCP - General Family Practice 01/02/14 [facility] [address] [place] [address] Ingrid Santana RN Registered Nurse Transplant 02/10/12 10/01/15 documented as of this encounter
--- OUTSIDE RECORDS SUMMARY | 2022-04-14 11:14 | XMS_ITS | Encounter Summary ---
:1950 Author Organization [place] Address [facility] [place] [address] Care Team Providers Name Role Phone Toña [...] filedocumented in this encounter Care Teams Nurse Assistant Relationship Specialty Start Date End Date Toña Jones MD PCP - General Nephrology 11/25/11 01/01/14 Momo Forbes PCP - General Family Practice 01/02/14 [facility] [address] [place] [address] Ingrid Santana, RN Registered Nurse Transplant 02/10/12 10/01/15 documented as of this encounter
--- OUTSIDE RECORDS SUMMARY | 2022-04-14 11:14 | XMS_ITS | Encounter Summary ---
:1950 Author Organization [place] Address [address] [place] [address] Care Team Providers Name Role Phone Toña Jones MD Primary Care Provider Ingrid Santana RN Unavailable Encounter Details Date Type Department Care Team Description 07/03/2012 Results Only LABORATORY RESULTS Barbara Bradley MD [address] [place], [place] [address] Social History Tobacco Use [...] HLA Lukasz Class II Single Antigen (07/03/2012) [facility] gist Method Time Signature SA2 Test [...] / Volume Laterality 07/03/2012 07/05/2012 1:57 PM MANAGER MAINTENANCE Barbara Bradley MD LAB - IMMUNOLOGY ORDERABLES Performing Organization Address City/State/ZIP Code Phon e Number [facility] Immunology/Histocompatabil [place], [place] [address] ity [facility] C[facility] [address], Room 3-580 HISTOTRAC documented in this encounter Visit Diagnoses Not on filedocumented in this encounter Care Teams Capping Machine Operator Relationship Specialty Start Date End Date Toña Jones MD PCP - General Nephrology 11/25/11 01/01/14 Ingrid Santana RN Registered Nurse Transplant 02/10/12 10/01/15 documented as of this encounter
--- OUTSIDE RECORDS SUMMARY | 2022-04-14 11:14 | XMS_ITS | Encounter Summary ---
:1950 Author Organization [place] Address [address] [place] [address]. [place] [address] Care Team Providers Name Role Phone Toña [...] - HIM SCAN - 09/25/2012 8:26 AM PACKING INSPECTOR ARCHIVE documented in this encounter Results LAB RESULT - HIM SCAN - ARCHIVE (09/25/2012 8:26 AM PACKING INSPECTOR) Specimen (Source) Anatomical Location Collection Method / Collectio n Time Received Time / Laterality Volume Narrative This result has an attachment that is no t available. Marcela Cordero MD LAB - BLOOD ORDERABLES documented in this encounter Visit Diagnoses Not on filedocumented in this encounter Care Teams Flat Spring Assembler Relationship Specialty Start Date End Date Toña Jones MD PCP - General Nephrology 11/25/11 01/01/14 Momo Forbes PCP - General Family Practice 01/02/14 [facility] [address] [place] [address] Ingrid Santana, RN Registered Nurse Transplant 02/10/12 10/01/15 documented as of this encounter
--- OUTSIDE RECORDS SUMMARY | 2022-04-14 11:14 | XMS_ITS | Encounter Summary ---
:1950 Author Organization [place] Address [address] [place] [address] Care Team Providers Name Role Phone Toña Jones MD Primary Care Provider Ingrid Santana RN Unavailable Encounter Details Date Type Department Care Team Description 11/05/2013 Results Only LABORATORY RESULTS Barbara Bradley MD [address] [place], [place] [address] Social History Tobacco Use [...] II Single Antigen (11/05/2013 7:20 AM CDT) [facility] Method Time Signature SA2 Test SA [...] Phon e Number [facility] Immunology/Histocompatabil [place], [place] [address] ity [facility] [address] [facility] [address] Building, Room 3-580 HISTOTRAC documented in this encounter Visit Diagnoses Not on filedocumented in this encounter Care Teams Counsel Relationship Specialty Start Date End Date Toña Jones MD PCP - General Nephrology 11/25/11 01/01/14 Ingrid Santana RN Registered Nurse Transplant 02/10/12 10/01/15 documented as of this encounter
--- OUTSIDE RECORDS SUMMARY | 2022-04-14 11:15 | XMS_ITS | Encounter Summary ---
:1950 Author Organization [place] Address [address] [facility] [place] [address] Care Team Providers Name Role Phone Toña Jones MD Primary Care Provider Encounter Details Date Type Department Care Team Description 02/08/2012 Hospital Encounter [facility] Jesus Cardenas MD Patient Learning Bobby Angela Leon, BOGDAN [address] [facility] [address] [place], [place] [address] 420 [place] [address] Social History Tobacco Use Types Packs/Day Years [...] tablet by mouth 0 02/18/2014 daily. B nnapfup-Q-jnawh acid Take 1 capsule by mouth 0 [...] on filedocumented in this encounter Care Teams Local Company Flatbed Truck Driver Relationship Specialty Start Date End Date Toña Jones MD PCP - General Nephrology 11/25/11 01/01/14 documented as of this encounter
--- OUTSIDE RECORDS SUMMARY | 2022-04-14 11:15 | XMS_ITS | Encounter Summary ---
:1950 Author Organization [place] Address [address] [place] [address] Care Team Providers Name Role Phone Toña Jones MD Primary Care Provider Encounter Details Date Type Department Care Team Description 02/08/2012 Orders Only [facility], Ty Blink, End sta ge kidney Pulmonary Function disease ( H) (Primary Laboratory Dx) 6th Floor 500 [place] [address] Social History Tobacco Use Types [...] Lab Testing (Generic) (02/08/2012 8:35 AM CDT) [facility] Method Time Signature Pulmonary COPATH Function Test Name: ? ELINOR GUTHRIE ? ID: ?[id number] Doctor: ?JESUS THOMAS ?Height: ?72.00 in ? [...] INTERPRETATION: The FVC, FEV1, FEV1/FVC ratio and MMT58-34% are within normal limits. ??The inspiratory flow [...] disease documented in this encounter Care Teams Firewood Cutter Relationship Specialty Start Date End Date Toña Jones MD PCP - General Nephrology 11/25/11 01/01/14 documented as of this encounter
--- OUTSIDE RECORDS SUMMARY | 2022-04-14 11:15 | XMS_ITS | Encounter Summary ---
:1950 Author Organization [place] Address [address] [place] [address] Care Team Providers Name Role Phone Toña Jones MD Primary Care Provider Reason for Visit (Routine) - Closed Specialty Diagnoses / Procedures Referred By Contact Refer red To Contact Cardiology Diagnoses ECHO CLINIC COMPLETE ADULT Procedure Notes: DIABETES MELLITUS, TYPE 2,END STAGE RENAL DISEASE,Transplant eval,Performing Location?->[facility] Echocardiography Procedures RADIOLOGY [address] [place] [address] Phone: Referral ID Status Reason Start Date Expiration Date Visits Requ ested Visits Authorized [id number] Closed 01/21/2012 01/20/2013 1 1 Encounter Details Date Type Department Care Team Description 02/08/2012 Hospital Encounter [facility], [place], Jeff Joshi MD [address] [facility] [address] [place] [address] Diabetes mellitus, type 2 (H); Echocardiography Rajat German MD [address] [facility] [address] [place] [address] End stage renal disease (H) [address] [place] [address] Social History Tobacco Use Types [...] tablet by mouth 0 02/18/2014 daily. B rapuejv-B-fiswp acid Take 1 capsule by mouth 0 [...] - Clinic (PWB) (02/08/2012 1:13 PM CDT) [facility] Method Time Signature XCELERA RADIOLOGY Interpretation [...] disease documented in this encounter Care Teams Coagulating Bath Mixer Relationship Specialty Start Date End Date Toña Jones MD PCP - General Nephrology 11/25/11 01/01/14 documented as of this encounter
--- OUTSIDE RECORDS SUMMARY | 2022-04-14 11:15 | XMS_ITS | Encounter Summary ---
:1950 Author Organization [place] Address [facility] [place] [address] Care Team Providers Name Role Phone Toña [...] filedocumented in this encounter Care Teams Nutrition Manager Relationship Specialty Start Date End Date Toña Jones MD PCP - General Nephrology 11/25/11 01/01/14 Momo Forbes PCP - General Family Practice 01/02/14 [facility] [address] [place] [id number] Ingrid Santana, RN Registered Nurse Transplant 02/10/12 10/01/15 documented as of this encounter
--- OUTSIDE RECORDS SUMMARY | 2022-04-14 11:15 | XMS_ITS | Encounter Summary ---
:1950 Author Organization [place] Address [address] [place] [address] Care Team Providers Name Role Phone Toña Jones MD Primary Care Provider Ingrid Santana RN Unavailable Reason for Visit (Routine) - Closed Specialty Diagnoses / Procedures Referred By Contact Refer red To Contact Radiology Diagnoses [place] [facility] Procedure Notes: UNSPECIFIED ESSENTIAL HYPERTENSION,PREOPERATIVE EXAMINATION, UNSPECIFIED, [facility] Nuclear Medicine Procedures RADIOLOGY [address] [place] [address] Phone: Referral ID Status Reason Start Date Expiration Date Visits Requ ested Visits Authorized [id number] Closed 02/11/2012 02/10/2013 1 1 Encounter Details Date Type Department Care Team Description 02/15/2012 Hospital Encounter [facility] Barbara Bradley Imaging MD [place] 500 [facility] [address] [place], [place] [address] [phone] Social History Tobacco Use Types Packs/Day Years [...] tablet by mouth 0 02/18/2014 daily. B adrupti-R-rvwqu acid Take 1 capsule by mouth 0 [...] on filedocumented in this encounter Care Teams Communications Department Chair Relationship Specialty Start Date End Date Toña Jones MD PCP - General Nephrology 11/25/11 01/01/14 Ingrid Santana RN Registered Nurse Transplant 02/10/12 10/01/15 documented as of this encounter
--- OUTSIDE RECORDS SUMMARY | 2022-04-14 11:15 | XMS_ITS | Encounter Summary ---
:1950 Author Organization [place] Address [address] [facility] [place] [address] Care Team Providers Name Role Phone Toña Jones MD Primary Care Provider Ingrid Santana RN Unavailable Encounter Details Date Type Department Care Team Description 02/10/2012 Orders Only [facility] Anita Joshi MD Diabetes mellitus, type 2 (H); Clinic Imaging [address] [facility] End stage renal disease (H) [facility] [address] [place], [place] 1st Floor, Clinic [address] [place] [address] [address] Social History Tobacco Use Types [...] disease documented in this encounter Care Teams Ethylbenzene Converter Operator Relationship Specialty Start Date End Date Toña Jones MD PCP - General Nephrology 11/25/11 01/01/14 Ingrid Santana RN Registered Nurse Transplant 02/10/12 10/01/15 documented as of this encounter
--- OUTSIDE RECORDS SUMMARY | 2022-04-14 11:15 | XMS_ITS | Encounter Summary ---
:1950 Author Organization [place] Address [address] [facility] [address] Care Team Providers Name Role Phone Toña Jones MD Primary Care Provider Ingrid Santana RN Unavailable Encounter Details Date Type Department Care Team Description 02/10/2012 Hospital Encounter [facility] Jesus Cardenas MD Nutrition Services Martina Harley, RD 420 [facility] 84 [place] [address] 420 [facility] Joseph Quintana MD 717 [facility] 353 [facility] [address] [place] [address] 84 [place] [address] Social History Tobacco Use Types Packs/Day Years [...] tablet by mouth 0 02/18/2014 daily. B tzxubuw-T-rkdda acid Take 1 capsule by mouth 0 [...] Mcneill, RD - 02/10/2012 8:47 AM CDT [facility] Medical Nutrition Therapy Visit Type: [...] on filedocumented in this encounter Care Teams Weblogic Developer Relationship Specialty Start Date End Date Toña Jones MD PCP - General Nephrology 11/25/11 01/01/14 Ingrid Santana RN Registered Nurse Transplant 02/10/12 10/01/15 documented as of this encounter
--- OUTSIDE RECORDS SUMMARY | 2022-04-14 11:15 | XMS_ITS | Encounter Summary ---
:1950 Author Organization [place] Address [facility] [place] [address] Care Team Providers Name Role Phone Toña Jones MD Primary Care Provider Ingrid Santana RN Unavailable Reason for Visit (Routine) - Closed Specialty Diagnoses / Procedures Referred By Contact Refer red To Contact Cardiology Diagnoses NM [facility] Procedure Notes: UNSPECIFIED ESSENTIAL HYPERTENSION,PREOPERATIVE EXAMINATION, UNSPECIFIED, Zz [facility] Electrocard Procedures RADIOLOGY 500 [place] [address] Referral ID Status Reason Start Date Expiration Date Visits Requ ested Visits Authorized [id number] Closed 02/11/2012 02/10/2013 1 1 Encounter Details Date Type Department Care Team Description 02/15/2012 Hospital Encounter [facility] ELECTROCARD [place], [place] 500 [facility] [place] [address] [address] [place], [place] [address] Social History Tobacco Use [...] tablet by mouth 0 02/18/2014 daily. B xywcfbk-M-vyvcb acid Take 1 capsule by mouth 0 [...] an attachment that is no t available. Babrara Bradley MD ECG ORDERABLES documented in this [...] Test documented in this encounter Care Teams Boomswing Operator Relationship Specialty Start Date End Date Toña Jones MD PCP - General Nephrology 11/25/11 01/01/14 Ingrid Santana RN Registered Nurse Transplant 02/10/12 10/01/15 documented as of this encounter
--- OUTSIDE RECORDS SUMMARY | 2022-04-14 11:15 | XMS_ITS | Encounter Summary ---
:1950 Author Organization [place] Address [facility] [place] [address] Care Team Providers Name Role Phone Toña Jones MD Primary Care Provider Ingrid Santana RN Unavailable Reason for Visit Reason Comments Transplant Evaluation Kidney transplant evaluation - chronic kidney disease Encounter Details Date Type Department Care Team Description 02/10/2012 Office Visit The Transplant Edda Cardenas, Ty Blink, DM (diabetes 2nd Floor, Clinic 2A MD mellitus), type 2 (H) Tommy Wilburn (Primar y Dx) [address] [address] Social History Tobacco Use Types [...] this time. Patient to follow up with campus recruiting coordinator. documented in this encounter Plan of Treatment Not on filedocumented as of this encounter Visit Diagnoses Diagnosis DM (diabetes mellitus), type 2 (H) - Ana ashley Type II or unspecified type diabetes aung litus without mention of complication, not stated as uncontrolled documented in this encounter Care Teams Head Of Music Relationship Specialty Start Date End Date Toña Jones MD PCP - General Nephrology 11/25/11 01/01/14 Ingrid Santana RN Registered Nurse Transplant 02/10/12 10/01/15 documented as of this encounter
--- OUTSIDE RECORDS SUMMARY | 2022-04-14 11:15 | XMS_ITS | Encounter Summary ---
:1950 Author Organization [place] Address [address] [place] [address] Care Team Providers Name Role Phone Toña Jones MD Primary Care Provider Ingrid Santana RN Unavailable Encounter Details Date Type Department Care Team Description 02/08/2012 Results Only LABORATORY RESULTS Jeff Joshi MD [facility] [facility] 353 [place] [address] (Wo rk) Social History Tobacco [...] II Single Antigen (02/08/2012 7:07 AM CDT) [facility] Method Time Signature SA2 Test [...] Immunology/Histocompatabil [place], [place] [address] ity [facility] [address] [facility] [address] Building, Room 3-580 HISTOTRAC documented in this encounter Visit Diagnoses Not on filedocumented in this encounter Care Teams Addiction Medicine Physician Relationship Specialty Start Date End Date Toña Jones MD PCP - General Nephrology 11/25/11 01/01/14 Ingrid Santana RN Registered Nurse Transplant 02/10/12 10/01/15 documented as of this encounter
--- OUTSIDE RECORDS SUMMARY | 2022-04-14 11:15 | XMS_ITS | Encounter Summary ---
:1950 Author Organization [place] Address [address] [place] [address] Care Team Providers Name Role Phone Toña Jones MD Primary Care Provider Ingrid Santana RN Unavailable Encounter Details Date Type Department Care Team Description 02/08/2012 Orders Only [facility] Jesus Cardenas Di abetes mellitus, type 2 (H); [facility] Gordo oneal MD End stage renal disease (H); [address] DIAGNOSIS [place] [address] Social History Tobacco Use Types Packs/Day Years [...] Results ABO type (02/08/2012 1:52 PM CDT) [facility] [facility] Method Time Signature ABO A [facility] RH(D) Pos [facility] Specimen 02/11/2012 [facility] Spec[facility] Anatomical Collection Method Collection Time Receive d Time (Source) Location / / Volume Laterality Blood specimen 02/08/2012 1:52 PM 012 1:54 (specimen) CDT PM CDT Chucho Joshi MD LAB - BLOOD BANK TEST ORDER Performing Organization Address City/[facility]/ZIP Code Phon e Number [address] LABS EKG 12-lead, tracing only (02/08/2012 7:30 AM CDT) [facility] [employer] [facility] Method Time Signature Ventricular Rate 60 BPM RADIOLOGY RESULTS Atrial Rate 60 BPM RADIOLOGY RESULTS OK Interval 186 ms RADIOLOGY RESULTS QRS Duration 104 ms RADIOLOGY RESULTS QT 440 ms RADIOLOGY RESULTS QTc 440 ms RADIOLOGY RESULTS P [place] 36 degrees RADIOLOGY RESULTS R AXIS 0 degrees RADIOLOGY RESULTS T [place] 36 degrees RADIOLOGY RESULTS Interpretation Sinus rhythm [...] DEFINED documented in this encounter Care Teams Rubber Mill Tender Relationship Specialty Start Date End Date Toña Jones MD PCP - General Nephrology 11/25/11 01/01/14 Ingrid Santana, RN Registered Nurse Transplant 02/10/12 10/01/15 documented as of this encounter
--- OUTSIDE RECORDS SUMMARY | 2022-04-14 11:15 | XMS_ITS | Encounter Summary ---
:1950 Author Organization [place] Address [facility] [place] [address] Care Team Providers Name Role Phone Toña Jones MD Primary Care Provider Ingrid Santana RN Unavailable Reason for Visit Reason Comments Transplant Evaluation kidney Encounter Details Date Type Department Care Team Description 02/10/2012 Office Visit Nephrology Darian Joshi MD [address] [place] [address] [phone] Pre-transplant 2nd Floor, Clinic 2A Joseph Quintana MD [address] [facility] [address] [facility] [address] [place] [address] evaluation for Tommy Wilburn chronic kidney Building disease (Primary Dx) [address] [place] [address] Social History Tobacco Use Types [...] Dialysis Type: [facility] HD; and Dialysis unit: [facility] Primary Supervisor Gelatin Plant: Dr. Martini [facility] Hx: h/o HTN Yes [...] by mouth daily. Yes Reported, Patient B dvvpiwz-X-jtsme acid (NEPHROCAPS) 1 MG capsule Take 1 [...] NEG Ketones Urine Negative NEG (mg/dL) Specific [place] Urine 1.010 1.003 - 1.035 Blood Urine [...] Report Value: Patient Name: ELINOR GUTHRIE MR#: [id number] Specimen #: [id number] Collected: 02/08/2012 07:07 Received: 02/08/2012 09:00 Reported: 02/11/2012 14:03 Ordering Phy(s): DARIAN JOSHI TEST(S) REQUESTED: A: Factor 5 Leiden and Factor 2 by PCR B: DNA Isolation, High purity extraction SPECIMEN DESCRIPTION: Blood METHODOLOGY: The regions of genomic DNA containing the I5559G Factor 5 gene mutation (Factor V Leiden) and the Factor 2(Prothrombin D17761N) gene mutation were simultaneously amplified using the polymerase chain reaction. The amplified products were digested with restriction endonuclease TaqI and products were analyzed by gel electrophoresis. RESULTS: FACTOR 5-LEIDEN RESULTS: Mutation analyzed: 1691G>A Factor 5 Mutation Interpretation: ABSENT Factor 5 Mutation genotype: G/G FACTOR 2/PROTHROMBIN RESULTS: Mutation analyzed: 90279P>A Factor 2 Mutation Interpretation: ABSENT Factor 2 Mutation genotype: G/G INTERPRETATION: The patient is negative for the Factor 5 mutation and negative for the Factor 2 mutation. This test was developed and its performance determined by the [facility]. It has not been cleared or approved by the U.S. Food and Drug Administration. The FDA has determined that such clearance or approval is not necessary. Pursuant to the requirements of CLIA'88, this laboratory has established and verified the test's accuracy and precision. This test is used for clinical purposes. Electronically Signed Out By: Liliya Stone MD TESTING LAB LOCATION: [address] [address] COLLECTION SITE: Client: [facility] Location: [facility]) HLA LUKASZ CLASS I SINGLE ANTIGEN Collection [...] of an antiphospholipid syndrome, recommend anticardiolipin and futx-8-pvramovcpbvd (IgG and IgM) antibody tests. Dee Duenas M.D. [phone] 02-09-2012. APTT'S: Seconds Reagent = Stago LS [...] Range Ventricular Rate 60 Atrial Rate 60 SC Interval 186 QRS Duration 104 QT 440 QTc 440 P [place] 36 R AXIS 0 T [place] 36 Interpretation ECG Sinus rhythm Interpretation ECG [...] Function Test Value: Name: ELINOR GUTHRIE ID: [id number] Doctor: DONYA THOMAS Height: 72.00 in Age: [...] INTERPRETATION: The FVC, FEV1, FEV1/FVC ratio and LYU28-99% are within normal limits. The inspiratory flow [...] 02/10/2012 10:00 AM CDT >> AUSTEN FAUSTIN [facility] Feb 10, 2012 9:54 AM Took igor cc, reviewed meds and allergies documented in this encounter Plan of Treatment Not on filedocumented as of this encounter Visit Diagnoses Diagnosis Pre-transplant evaluation for chronic ki dney disease - Primary Other specified pre-operative examinatio n documented in this encounter Care Teams [employer] Relationship Specialty Start Date End Date Toña Jones MD PCP - General Nephrology 11/25/11 01/01/14 Ingrid Santana RN Registered Nurse Transplant 02/10/12 10/01/15 documented as of this encounter
--- OUTSIDE RECORDS SUMMARY | 2022-04-14 11:15 | XMS_ITS | Encounter Summary ---
:1950 Author Organization [place] Address [facility] 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 ??The [...] Phon e Number [facility] [address] [place], [place] [phone] [place] [address] [facility] Antibody titer red cell (02/08/2012 7:26 AM CDT) [facility] Method Time Signature Antibody Titer Anti B [facility] titer IgM: [place] 4 Ig CAMPUS LABS Specimen Anatomical Collection Method Collection Time Receive d Time (Source) Location / / Volume Laterality Blood specimen 02/08/2012 7:26 AM 012 7:31 (specimen) CDT AM CDT Darian Joshi MD LAB - BLOOD BANK TEST ORDER Performing Organization Address City/State/ZIP Code Phon e Number [facility] [address] LABS Prostate spec antigen screen (02/08/2012 7:25 AM CDT) P athologist Signature PSA 0.44 0 - 4 ug/L [facility] LABS Comment: PSA results are [...] Phon e Number [facility] [address] LABS Hemoglobin A1c (02/08/2012 7:25 AM CDT) P athologist Signature Hemoglobin A1C 5.3 4.3 - 6.0 [facility] [place] LABS Specimen Anatomical Collection Method Collection Time Receive d Time (Source) Location / / Volume Laterality Blood specimen 02/08/2012 7:25 AM 012 7:30 (specimen) CDT AM CDT Darian Joshi MD LAB - BLOOD ORDERABLES Performing Organization Address City/State/ZIP Code Phon e Number [facility] [address] [place], [place] [phone] [place] [address] LABS C-peptide (02/08/2012 7:25 AM CDT) athologist Signature C Peptide 5.3 0.9 - 6.9 [facility] ng/mL [place] LABS Specimen Anatomical Collection Method Collection Time Receive d Time (Source) Location / / Volume Laterality Blood specimen 02/08/2012 7:25 AM 012 7:30 (specimen) CDT AM CDT Darian Joshi MD LAB - BLOOD ORDERABLES Performing Organization Address City/State/ZIP Code Phon e Number [address] LABS Cardiolipin antibody IgG and IgM (02/08/2012 7:25 AM CDT) [facility] Method Time Signature Cardiolipin IgG <15.0 0 - 15.0 [facility] Shaye Interpretation: ??Negative GPL [facility] LABS Cardiolipin IgM <12.5 0 - 12.5 [facility] Shaye Interpretation: ??Negative MPL [facility] LABS Specimen Anatomical Collection Method Collection Time Receive d Time (Source) Location / / Volume Laterality Blood specimen 02/08/2012 7:25 AM 012 7:30 (specimen) CDT AM CDT Darian Joshi MD LAB - BLOOD ORDERABLES Performing Organization Address City/State/ZIP Code Phon e Number [phone] [place] [address] LABS (ABNORMAL) Comprehensive metabolic panel (02/08/2012 7:25 AM CDT) [facility] Method Time Signature Sodium 143 133 - 144 [facility] mmol/L [facility]S Potassium 4.4 3.4 - 5.3 [facility] mmol/L [facility] Chloride 106 94 - 109 [facility] mmol/L [facility]S Carbon Dioxide 24 20 - 32 [facility] mmol/L [facility] Anion Gap 13 6 - 17 [facility] mmol/L [facility]S Glucose 126 (H) 60 - 99 [facility] mg/dL [facility]S Urea Nitrogen 32 (H) 7 - 30 [facility] mg/dL [facility] LABS Creatinine 5.46 (H) 0.66 - [facility] 1.25 [place] mg/dL CAMPUS LABS GFR Estimate 11 (L) >60 [facility] mL/min/1. [address] LABS GFR Estimate If 13 (L) >60 [facility] Black mL/min/1. [address] LABS Calcium 8.5 8.5 - [facility] 10.4 [facility] mg/dL [place] LABS Bilirubin Total 0.8 0.2 - 1.3 [facility] mg/dL [facility] Albumin 3.8 3.3 - 4.9 [facility] g/dL [facility] Protein Total 6.8 6.8 - 8.8 [facility] g/dL [facility] Alkaline 92 40 - 150 [facility] Phosphatase U/L [facility] ALT 13 0 - 70 [facility] U/L [facility] AST 18 0 - 45 [facility] U/L [facility] Specimen Anatomical Collection Method Collection Time Receive d Time (Source) Location / / Volume Laterality Blood specimen 02/08/2012 7:25 AM 012 7:30 (specimen) CDT AM CDT Darian Joshi MD LAB - BLOOD ORDERABLES Performing Organization Address City/[facility]/ZIP Code Phon e Number [facility] [address] LABS Lipid Profile (02/08/2012 7:25 AM CDT) P athologist Signature Cholesterol 134 0 - 200 [facility] mg/dL [place] LABS Comment: LDL Cholesterol is the primary guide to therapy. The NCEP recommends further evaluation of: patients with cholesterol greater than 200 mg/dL if additional risk facto rs are present, cholesterol greater than 240 mg/dL, triglycerides greater than 1 50 mg/dL, or HDL less than 40 mg/dL. Triglycerides 74 0 - 150 mg/dL [facility] LABS HDL Cholesterol 42 40 - 110 mg/dL [facility] LAB[facility] LDL Cholesterol Calculated 77 0 - 129 mg/dL [facility] LABS Comment: LDL Cholesterol is the primary guide to therapy: LDL-cholesterol goal in high risk patients is <100 mg/dL and in very high risk patients is <70 mg/dL. VLDL-Cholesterol 15 0 - 30 mg/dL [facility] LABS Cholesterol/HDL Ratio 3.2 0.0 - 5.0 [facility] Specimen Anatomical Collection Method Collection Time Receive d Time (Source) Location / / Volume Laterality Blood specimen 02/08/2012 7:25 AM 012 7:30 (specimen) CDT AM CDT Darian Joshi MD LAB - BLOOD ORDERABLES Performing Organization Address City/State/ZIP Code Phon e Number [facility] [address] [place] [address] [facility] LABS ABO/Rh type and screen (02/08/2012 7:25 AM CDT) Patholo gist Method Time Signature ABO A [facility] LABS RH(D) Pos [facility] LABS Antibody Neg [facility] Screen [facility] Specimen 02/11/2012 [facility] Expires [facility] LAB[facility] Specimen Anatomical Collection Method Collection Time Receive d Time (Source) Location / / Volume Laterality Blood specimen 02/08/2012 7:25 AM 012 7:30 (specimen) CDT AM CDT Darian Joshi MD LAB - BLOOD BANK TEST ORDER Performing Organization Address City/[facility]/ZIP Code Phon e Number [facility] [address] LABS Varicella zoster antibody IgG (02/08/2012 7:25 AM CDT) Patholo gist Method Time Signature Varicella 1023.00 [facility] Zoster IgG [place] Immune Status CAMPUS LABS Ratio Vari Zoster Positive, [facility] IgG Interp suggests [place] prev. CAMPUS LABS exposure and probable immunity Specimen Anatomical Collection Method Collection Time Receive d Time (Source) Location / / Volume Laterality Blood specimen 02/08/2012 7:25 AM 012 7:30 (specimen) CDT AM CDT Darian Joshi MD LAB - BLOOD ORDERABLES Performing Organization Address City/[facility]/ZIP Code Phon e Number [facility] [address] LABS Anti treponema EIA (02/08/2012 7:25 AM CDT) Analysis Performed At Patho logist Time Signature Treponema Negative NEG [facility] [place] LABS Specimen Anatomical Collection Method Collection Time Receive d Time (Source) Location / / Volume Laterality Blood specimen 02/08/2012 7:25 AM 012 7:30 (specimen) CDT AM CDT Darian Joshi MD LAB - BLOOD ORDERABLES Performing Organization Address City/[facility]/ZIP Code Phon e Number [facility] [address] [place], [place] [phone] [place] [address] LABS HIV 1 and 2 Antibody (02/08/2012 7:25 AM CDT) Analysis Performed At Patho logist Time Signature HIV 1&2 Negative NEG [facility] Antibody [facility] LABS Specimen Anatomical Collection Method Collection Time Receive d Time (Source) Location / / Volume Laterality Blood specimen 02/08/2012 7:25 AM 012 7:30 (specimen) CDT AM CDT Darian Joshi MD LAB - BLOOD ORDERABLES Performing Organization Address City/State/ZIP Code Phon e Number [facility] [address] [place], [place] [phone] [place] [address] LABS Hepatitis C antibody (02/08/2012 7:25 AM CDT) Analysis Performed At Patho logist Time Signature Hepatitis C Negative NEG [facility] Antibody [facility] LABS Specimen Anatomical Collection Method Collection Time Receive d Time (Source) Location / / Volume Laterality Blood specimen 02/08/2012 7:25 AM 012 7:30 (specimen) CDT AM CDT Darian Joshi MD LAB - BLOOD ORDERABLES Performing Organization Address City/State/ZIP Code Phon e Number [facility] [address] [place], [place] [phone] [place] [address] LABS Hepatitis B surface antigen (02/08/2012 7:25 AM CDT) [facility] Signature Hep B Surface Negative NEG [facility] Agn [facility] LABS Specimen Anatomical Collection Method Collection Time Receive d Time (Source) Location / / Volume Laterality Blood specimen 02/08/2012 7:25 AM 012 7:30 (specimen) CDT AM CDT Darian Joshi MD LAB - BLOOD ORDERABLES Performing Organization Address City/[facility]/ZIP Code Phon e Number [facility] [address] LABS Hepatitis B surface antibody (02/08/2012 7:25 AM CDT) P athologist Signature Hep B Surface 135.0 [facility] LABS Comment: Positive, Patient is considered [...] Phon e Number [facility] 500 [place], [place] [phone] [place] [address] LABS Hepatitis B core antibody (02/08/2012 7:25 AM CDT) Analysis Performed At Patho logist Time Signature Hepatitis B Negative NEG [facility] Specimen Anatomical Collection Method Collection Time Receive d Time (Source) Location / / Volume Laterality Blood specimen 02/08/2012 7:25 AM 012 7:30 (specimen) CDT AM CDT Darian Joshi MD LAB - BLOOD ORDERABLES Performing Organization Address City/[facility]/ZIP Code Phon e Number [facility] [address] LABS EBV VCA IgG Antibody (02/08/2012 7:25 AM CDT) P athologist Signature EBV VCA IgG 188.00 U/mL [facility] LABS Comment: Positive, suggests immunologic exposure. Specimen Anatomical Collection Method Collection Time Receive d Time (Source) Location / / Volume Laterality Blood specimen 02/08/2012 7:25 AM 012 7:30 (specimen) CDT AM CDT Darian Joshi MD LAB - BLOOD ORDERABLES Performing Organization Address City/[facility]/ZIP Code Phon e Number [facility] [address] LABS CMV IGG ANTIBODY (02/08/2012 7:25 AM CDT) P athologist Signature CMV IgG 3.30 U/mL [facility] LABS Comment: Positive for anti-CMV IgG Specimen Anatomical Collection Method Collection Time Receive d Time (Source) Location / / Volume Laterality Blood specimen 02/08/2012 7:25 AM 012 7:30 (specimen) CDT AM CDT Darian Joshi MD LAB - BLOOD ORDERABLES Performing Organization Address City/[facility]/ZIP Code Phon e Number [facility] [address] LABS Immunology recipient: SOT HLA Workup (ABC,DR,DQ,PRA,Crossmatch) (02/08/2012 7:25 AM CDT) Patholo gist Method Time Signature Immunology SOT HLA WORKUP [facility] Test Name [facility]S Immunology Specimen [facility] Result received - [place] Immunology [facility]AMPUS LABS report to follow upon completion. Specimen Anatomical Collection Method Collection Time Receive d Time (Source) Location / / Volume Laterality Blood specimen 02/08/2012 7:25 AM 012 7:30 (specimen) CDT AM CDT Darian Joshi MD LAB - IMMUNOLOGY ORDERABLES Performing Organization Address City/State/ZIP Code Phon e Number [facility] [address] [place] [address] [facility] [place] LABS (ABNORMAL) CBC with platelets differential (02/08/2012 7:25 AM CDT) [facility] gist Method Time Signature WBC 6.3 4.0 - [facility] 11.0 [facility] 10e9/L CAMPUS LABS RBC Count 3.97 (L) 4.4 - 5.9 [facility] 10e12/L [facility]S Hemoglobin 12.0 (L) 13.3 - [facility] 17.7 g/dL [facility]S Hematocrit 36.3 (L) 40.0 - [facility] 53.0 % [facility] MCV 91 78 - 100 [facility] fl [facility] [place] LABS MCH 30.2 26.5 - [facility] 33.0 pg [place] C[facility]US LABS MCHC 33.1 31.5 - [facility] 36.5 g/dL [facility]S RDW 15.3 (H) 10.0 - [facility] 15.0 % [facility] LABS Platelet Count 144 (L) 150 - 450 [facility] 10e9/L [facility] Diff Method Automated [facility] Method [facility] LAB[facility] % Neutrophils 57.7 40 - 75 % [facility] LABS % Lymphocytes 27.7 20 - 48 % [facility] % Monocytes 8.2 0 - 12 % [facility] % Eosinophils 6.1 (H) 0 - 6 % [facility] LAB[facility] % Basophils 0.3 0 - 2 % [facility] % Immature 0.0 0 - 0.4 % [facility] Granulocytes [facility] Absolute 3.6 1.6 - 8.3 [facility] Neutrophil 10e9/L [facility] Absolute 1.7 0.8 - 5.3 [facility] Lymphocytes 10e9/L [facility] Absolute 0.5 0.0 - 1.3 [facility] Monocytes 10e9/L [facility] Absolute 0.4 0.0 - 0.7 [facility] Eosinophils 10e9/L [facility] Absolute 0.0 0.0 - 0.2 [facility] Basophils 10e9/L [facility] Abs Immature 0.0 0 - 0.03 [facility] Granulocytes 10e9/L [facility] LABS Specimen Anatomical Collection Method Collection Time Receive d Time (Source) Location / / Volume Laterality Blood specimen 02/08/2012 7:25 AM 012 7:30 (specimen) CDT AM CDT Darian Joshi MD LAB - BLOOD ORDERABLES Performing Organization Address [facility]/ZIP Code Phon e Number [facility] [address] LABS Lupus panel (02/08/2012 7:25 AM CDT) Component Value Ref Test Analysis Performed At Patholo gist Range Method Time Signature Lupus Result Negative NEG [facility] (Note) [place] COMMENTS: [place] LABS The INR is normal. APTT is normal. ??1:2 Mix is not indicated. DRVVT Screen is normal. Thrombin time is normal. NEGATIVE TEST; A LUPUS ANTICOAGULANT WAS NOT DETECTED IN THI S SPECIMEN WITHIN THE LIMITS OF THE TESTING REPERTOIRE. If the clinical picture is strongly suggestive of an antipho spholipid syndrome, recommend anticardiolipin and sfmt-7-dcqgjrleceaq (IgG and IgM) antibody tests. Dee Duenas M.D. ??[phone] 02-09-2012. APTT'S: ?? Seconds Reagent = Stago [...] Phon e Number [facility] [address] [place], [place] [phone] [place] [address] LABS Thrombin time (02/08/2012 7:25 AM CDT) P athologist Signature Thrombin Time 16.7 13.0 - [facility] 19.0 sec CAMPUS LABS Specimen Anatomical Collection Method Collection Time Receive d Time (Source) Location / / Volume Laterality Blood specimen 02/08/2012 7:25 AM 012 7:30 (specimen) CDT AM CDT Darian Joshi MD LAB - BLOOD ORDERABLES Performing Organization Address City/[facility]/ZIP Code Phon e Number [facility] [address] LABS Partial thromboplastin time (02/08/2012 7:25 AM CDT) P athologist Signature PTT 29 22 - 37 sec [facility] LABS Specimen Anatomical Collection Method Collection Time Receive d Time (Source) Location / / Volume Laterality Blood specimen 02/08/2012 7:25 AM 012 7:30 (specimen) CDT AM CDT Darian Joshi MD LAB - BLOOD ORDERABLES Performing Organization Address City/[facility]/ZIP Code Phon e Number [facility] [address] LABS INR (02/08/2012 7:25 AM CDT) P athologist Signature INR 1.11 0.86 - 1.14 [facility] LABS Specimen Anatomical Collection Method Collection Time Receive d Time (Source) Location / / Volume Laterality Blood specimen 02/08/2012 7:25 AM 012 7:30 (specimen) CDT AM CDT Darian Joshi MD LAB - BLOOD ORDERABLES Performing Organization Address City/[facility]/ZIP Code Phon e Number [phone] [place] [address] LABS Factor 2 and 5 mutation analysis (02/08/2012 7:07 AM CDT) Component Value Ref Test Analysis Performed At [facility] Range Method Time Signature Copath Report Patient Name: ELINOR GUTHRIE MR#: [id number] Specimen #: [id number] Collected: 02/08/2012 07:07 Received: 02/08/2012 09:00 Reported: 02/11/2012 14:03 Ordering Phy(s): DARIAN JOSHI TEST(S) REQUESTED: A: Factor 5 Leiden and Factor 2 by PCR B: DNA Isolation, High purity extraction SPECIMEN DESCRIPTION: Blood METHODOLOGY: ?? The regions of genomic DNA containing the G1 691A Factor 5 gene mutation (Factor V Leiden) and the Factor 2(Prothrombin Q22250A) gene mutation were simultaneously amplified using the polyme rase chain reaction. ??The amplified products were digested with restri ction endonuclease TaqI and products were analyzed by gel electrop horesis. RESULTS: FACTOR 5-LEIDEN RESULTS: Mutation analyzed: ? 1691G>A Factor 5 Mutation Interpretation: ?ABSENT Factor 5 Mutation genotype: ?G/G FACTOR 2/PROTHROMBIN RESULTS: Mutation analyzed: ? 19844M>A Factor 2 Mutation Interpretation: ?ABSENT Factor 2 Mutation genotype: ?G/G INTERPRETATION: The patient is negative for the Factor 5 mutation and negati ve for the Factor 2 mutation. This test was developed and its performance determined by kj de [facility] ??Molecular Diagnostic Laboratory. It has not been [...] By: Liliya Stone MD TESTING LAB LOCATION: [address] [address] COLLECTION SITE: Client: ??[facility] Location: ??UUTXO (B) Specimen Anatomical Collection Method Collection Time Receive d Time (Source) Location / / Volume Laterality 02/08/2012 7:07 AM 2 9:00 CDT AM CDT Provider Unknown LAB - GENOMICS Performing Organization Address City/State/ZIP Code Phon e Number [facility] (ABNORMAL) Routine UA with microscopic (02/08/2012 7:06 AM CDT) Component Value Ref Test Analysis Performed At [facility] gist Range Method Time Signature Color Urine Light Yellow [facility] Appearance Urine Clear [facility] Glucose Urine 300 (A) NEG [facility] mg/dL [facility] Bilirubin Urine Negative NEG [facility] Ketones Urine Negative NEG [facility] mg/dL [facility] [place] LAB[facility] Specific [place] 1.010 1.003 - [facility] Urine 1.035 [facility] [place] [facility] Blood Urine Negative NEG [facility] pH Urine 7.5 (H) 5.0 - [facility] 7.0 pH [facility] LABS Protein Albumin 300 (A) NEG [facility] Urine mg/dL [facility] [place] LAB[facility] Urobilinogen Normal 0.0 - [facility] mg/dL 2.0 [place] mg/dL CAMPUS LABS Nitrite Urine Negative NEG [facility] Leukocyte Negative NEG [facility] Esterase Urine [facility] [place] [facility] Source Unspecified [facility] Urine [facility] LAB[facility] WBC Urine 1 0 - 2 [facility] /HPF [place] [facility] LABS RBC Urine <1 0 - 2 [facility] /HPF [facility] LABS Hyaline Casts 3 (H) 0 - 2 [facility] /LPF [facility] LABS Specimen Anatomical Collection Method Collection Time Receive d Time (Source) Location / / Volume Laterality Urine specimen 02/08/2012 7:06 AM 012 7:08 (specimen) CDT AM CDT Darian Joshi MD LAB - URINE ORDERABLES Performing Organization Address City/State/ZIP Code Phon e Number [facility] [address] [facility] LAB[facility] documented in this encounter Visit Diagnoses Diagnosis Diabetes mellitus, type 2 (H) Type II or unspecified type diabetes aung litus without mention of complication, not stated as uncontrolled End stage renal disease (H) End stage renal disease documented in this encounter Care Teams Bid Manager Relationship Specialty Start Date End Date Toña Jones MD PCP - General Nephrology 11/25/11 01/01/14 documented as of this encounter
--- OUTSIDE RECORDS SUMMARY | 2022-04-14 11:15 | XMS_ITS | Encounter Summary ---
:1950 Author Organization [place] Address [address] [place] [address] Care Team Providers Name Role Phone Toña Jones MD Primary Care Provider Ingrid Santana RN Unavailable Encounter Details Date Type Department Care Team Description 02/08/2012 Results Only LABORATORY RESULTS Jeff Joshi MD [address] [facility] [address] [place] [address] (Wo rk) Social History Tobacco [...] I Single Antigen (02/08/2012 7:07 AM CDT) [facility] Method Time Signature SA1 Test Single [...] Phon e Number [facility] Immunology/Histocompatabil [place], [place] [address] ity [facility] [address] [facility] [address], Room 3-580 HISTOTRAC documented in this encounter Visit Diagnoses Not on filedocumented in this encounter Care Teams Examination Scorer Relationship Specialty Start Date End Date Toña Jones MD PCP - General Nephrology 11/25/11 01/01/14 Ingrid Santana, RN Registered Nurse Transplant 02/10/12 10/01/15 documented as of this encounter
--- OUTSIDE RECORDS SUMMARY | 2022-04-14 11:15 | XMS_ITS | Encounter Summary ---
:1950 Author Organization [place] Address [address] [facility] [place] [address] Care Team Providers Name Role Phone Toña Jones MD Primary Care Provider Ingrid Santana RN Unavailable Encounter Details Date Type Department Care Team Description 02/08/2012 Results Only LABORATORY RESULTS [facility] MD [facility] [facility] [address] [place] [address] (Wo rk) Social History Tobacco [...] Phon e Number [facility] Immunology/Histocompatabil [place], [place] [address] ity [facility] [address], [address]580 HISTOTRAC documented in this encounter Visit Diagnoses Not on filedocumented in this encounter Care Teams Scow Derrick Operator Relationship Specialty Start Date End Date Toña Jones MD PCP - General Nephrology 11/25/11 01/01/14 Ingrid Santana RN Registered Nurse Transplant 02/10/12 10/01/15 documented as of this encounter
--- OUTSIDE RECORDS SUMMARY | 2022-04-14 11:15 | XMS_ITS | Encounter Summary ---
:1950 Author Organization [place] Address [address] [place] [address]. [place] [address] Care Team Providers Name Role Phone Toña Jones MD Primary Care Provider Ingrid Santana RN Unavailable Momo Forbes Primary Care Provider Encounter Details Date Type Department Care Team Description 02/18/2012 Abstract [facility] 2nd [facility], Clinic 2A [place] [phone] Social History Tobacco Use Types Packs/Day [...] on filedocumented in this encounter Care Teams Service Liaison Representative Relationship Specialty Start Date End Date Toña Jones MD PCP - General Nephrology 11/25/11 01/01/14 Momo Forbes PCP - General Family Practice 01/02/[address] [place] [address] Ingrid Santana RN Registered Nurse Transplant 02/10/12 10/01/15 documented as of this encounter
--- OUTSIDE RECORDS SUMMARY | 2022-04-14 11:15 | XMS_ITS | Encounter Summary ---
:1950 Author Organization [place] Address [address] [facility] [place] [address] Care Team Providers Name Role Phone Toña Jones MD Primary Care Provider Ingrid Santana RN Unavailable Encounter Details Date Type Department Care Team Description 02/08/2012 Results Only LABORATORY RESULTS Jeff Joshi MD [address] [facility] [address] [place] [address] (Wo rk) Social History Tobacco [...] LAB - IMMUNOLOGY ORDERABLES Performing Organization Address City/State/[facility] Code Phon e Number [facility] Immunology/Histocompatabil [place], [place] [address] ity [facility] [address] Building, Room 3-580 HISTOTRAC documented in this encounter Visit Diagnoses Not on filedocumented in this encounter Care Teams Web Production Assistant Relationship Specialty Start Date End Date Toña Jones MD PCP - General Nephrology 11/25/11 01/01/14 Ingrid Santana RN Registered Nurse Transplant 02/10/12 10/01/15 documented as of this encounter
--- OUTSIDE RECORDS SUMMARY | 2022-04-14 11:15 | XMS_ITS | Encounter Summary ---
:1950 Author Organization [place] Address Formerly [facility] [place] [address] Care Team Providers Name Role Phone Toña Jones MD Primary Care Provider Blayne Santana RN Unavailable Reason for Visit Reason Comments Transplant Evaluation Encounter Details Date Type Department Care Team Description 02/08/2012 Office Visit Transplant Surgery Jesus Cardenas, DM (di abetes mellitus), type 2 (H); Clinic End stage renal disease (H) 2nd Floor, Clinic [address]A [address] [phone] Social History Tobacco Use Types Packs/Day Years [...] from the original note were not included. 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 B dfqzuvb-H-zivqq acid (NEPHROCAPS) 1 MG capsule Take 1 [...] Test 02/08/12 0725 INR 1.11 F2MAR -- L3J5NEW -- Lipid Profile: Cholesterol Date Value Range [...] 09, 2012 3:21 PM Pre Abdominal Organ Data Integration Architect Evaluation Note: present: Dr. Jesus Cardenas Attendees: self Type of transplant: kidney Required Topic(s) Discussed: Evaluation notification document, SRTR data, Multiple wait list brochure, ASBESTOS REMOVAL SUPERVISOR, Evaluation/approval process, Selection committee process, Wait list [...] spent with patient: 15 minutes -- Nurse Data Integration Architect Pager [phone] BLAYNE SANTANA -- Nurse Data Integration Architect Pager [phone] >> Lena Sánchez RN Tue Feb 08, [...] disease documented in this encounter Care Teams Project Management Professional Relationship Specialty Start Date End Date Toña Jones MD PCP - General Nephrology 11/25/11 01/01/14 Blayne Santana, RN Registered Nurse Transplant 02/10/12 10/01/15 documented as of this encounter
--- OUTSIDE RECORDS SUMMARY | 2022-04-14 11:15 | XMS_ITS | Encounter Summary ---
:1950 Author Organization [place] Address Critical access hospital0 [facility] [place] [address] Care Team Providers Name Role Phone Toña Jones MD Primary Care Provider Ingrid Santana RN Unavailable Reason for Visit Reason Comments Social Work Services Encounter Details Date Type Department Care Team Description 02/10/2012 Office Visit The Transplant Akanksha Stacy Organ transplant 2nd Floor, Clinic 2A SHALOM Zacarias candidate ([facility] [address] [phone] Social History Tobacco Use Types Packs/Day Years [...] old Duration of Interview: 40 min Process: Hklf-eq-Zaln Interview (counseling < 50%) Present at Appointment: Latrell, his brother Kiran and Latrell Zamora, Transplant Financial Eeg TechnicianCommunity Cultural Development Officer Worker: CECY Ortiz, [facility] Date: February 10, 2012 Type of transplant: Kidney Donor type: Latrell indicated that he does not know of any potential donors at this time. Cadaver Prior Transplants: No Status of Transplant: Current Living Situation Location: [address] [place] [phone] With Whom: Alone Family/ Social Support: Kiran lives in [place], [place]. Available, helpful Committed relationship: Latrell indicated [...] Employment Unemployed Job Description Income Savings Insurance Laterll has BC/BS through [employer] (formerly [employer]) until 07/22/13. He has also applied for [...] that assist with fund raising. Discussed asking early childhood worker for assistance with cobra premiums and [...] No Adequate Finances Yes Signature: CECY Ortiz, [facility] Title: Clinical Medical Registrar documented in this encounter Plan of Treatment Not on filedocumented as of this encounter Visit Diagnoses Diagnosis Organ transplant candidate - Primary Awaiting organ transplant status documented in this encounter Care Teams Roundsman Relationship Specialty Start Date End Date Toña Jones MD PCP - General Nephrology 11/25/11 01/01/14 Ingrid Santana RN Registered Nurse Transplant 02/10/12 10/01/15 documented as of this encounter
--- OUTSIDE RECORDS SUMMARY | 2022-04-14 11:15 | XMS_ITS | Encounter Summary ---
:1950 Author Organization [place] Address [address] [facility] [place] [address] Care Team Providers Name Role Phone Toña Jones MD Primary Care Provider Ingrid Santana RN Unavailable Encounter Details Date Type Department Care Team Description 02/15/2012 Hospital Encounter [facility] Barbara Bradley Unsstar ecified essential hypertension; [facility] Imaging MD Monae Pre-operative clearance [address] [place] [phone] Social History Tobacco Use [...] tablet by mouth 0 02/18/2014 daily. B rdrwacf-Y-hxqjj acid Take 1 capsule by mouth 0 [...] unspecified documented in this encounter Care Teams Fleet Administrative Assistant Relationship Specialty Start Date End Date Toña Jones MD PCP - General Nephrology 11/25/11 01/01/14 Ingrid Santana, BOGDAN Registered Nurse Transplant 02/10/12 10/01/15 documented as of this encounter
--- OUTSIDE RECORDS SUMMARY | 2022-04-14 11:15 | XMS_ITS | Encounter Summary ---
:1950 Author Organization [place] Address [address] [place] [address] Care Team Providers Name Role Phone Toña Jones MD Primary Care Provider Ingrid Santana RN Unavailable Reason for Visit (Routine) - Closed Specialty Diagnoses / Procedures Referred By Contact Refer red To Contact Radiology Diagnoses NM MPI SCAN Procedure Notes: UNSPECIFIED ESSENTIAL HYPERTENSION,PREOPERATIVE EXAMINATION, UNSPECIFIED, [facility] Nuclear Medicine Procedures RADIOLOGY [address] [place] [address] Phone: Referral ID Status Reason Start Date Expiration Date Visits Requ ested Visits Authorized [id number] Closed 02/11/2012 02/10/2013 1 1 Encounter Details Date Type Department Care Team Description 02/15/2012 Hospital Encounter [facility] Barbara Bradley ESRD (end stage [facility] Imaging MD Monae renal disease) (H) [address] [facility] [address] [place] [address] [phone] Social History Tobacco Use Types Packs/Day Years [...] tablet by mouth 0 02/18/2014 daily. B qmmwsbt-X-qgfhv acid Take 1 capsule by mouth 0 [...] disease documented in this encounter Care Teams Tamping Machine Operator Road Forms Relationship Specialty Start Date End Date Toña Jones MD PCP - General Nephrology 11/25/11 01/01/14 Ingrid Santana RN Registered Nurse Transplant 02/10/12 10/01/15 documented as of this encounter
--- OUTSIDE RECORDS SUMMARY | 2022-04-14 11:15 | XMS_ITS | Encounter Summary ---
:1950 Author Organization [place] Address Critical access hospital0 [facility] [address] Care Team Providers Name Role Phone Toña Jones MD Primary Care Provider Ingrid Santana RN Unavailable Reason for Visit Reason Comments Heart Problem Consult prior to kidney proctor splant, needs EKG please. Encounter Details Date Type Department Care Team Description 02/10/2012 Office Visit [facility] Barbara Bradley Unspecified es sential hypertension; [facility] Chance Licona Pre-operative clearance Heart [address] Sanders Chance Shaikh [address] [facility] [phone] 4th Floor, Clinic 4B (Work) [address] [address] Social History Tobacco Use Types [...] Stay Well and Call Maribel Nicole RN [phone] with any questions or concerns. You are scheduled for an Adenosine Stress Test 02/15/2012: Please check into the [facility] Waiting Room at 12:15pm for this [...] and you need to reschedule, please call [phone]. January 2012Tuesday 1 2 3 4 5 6 7 8 9 10 11 12 13 14 15 16 17 18 19 [facility] NEW 6:30 AM (30 min.) Evaluation, [facility] The Transplant Center [facility] FULL PULMONARY FUNCTION 8:00 AM (60 min.) 2, [facility] Pfl [place] Pulmonary Function Laboratory RADIOLOGY 8:05 AM (10 min.) Uicxr2 [facility] Diagnostic Imaging [facility] PREP KIDNEY/PANCREAS TX 9:00 AM (120 min.) Angela Lopez, [facility], [place], [facility] TRANSPLANT CLASS KIDNEY 9:00 AM (90 min.) Class, [facility] Transplant [facility] Transplant [facility] FORESTRY CONTRACTOR 11:00 AM (30 min.) Coordinator, [facility] Care [facility] Transplant [facility] PRE-TX KIDNEY EVAL 11:00 AM (30 min.) Donya Thomas MD Transplant Surgery LAB 11:30 AM (15 min.) [place], Op Lab [facility], Lab RADIOLOGY 1:30 PM (55 min[address]1 [facility], Echocardiography 20 21 [facility] RETURN 7:00 AM (15 min.) Evaluation, [facility] Txc The Transplant Center RADIOLOGY 7:00 AM (60 min.) Uicusr2 [facility] Diagnostic Imaging CONSULT HOD 8:00 AM (60 min.) Martina Mcneill RD [facility], Nutrition Services [facility] TX SOCIAL WORK 9:00 AM (60 min.) 2, [facility] Tx Consult Room The Transplant Center [facility] PRE-TX KIDNEY EVAL 10:00 AM (60 min.) Joseph Quintana MD Nephrology [facility] PANCREAS-KIDNEY TX W/U 11:30 AM (30 min.) Barbara Bradley MD [facility] Heart 22 23 24 25 26 RADIOLOGY 12:30 PM (15 min.) Un[address] [facility], Nuclear Medicine RADIOLOGY 1:15 PM (20 min.) [address]1 [facility], Nuclear Medicine RADIOLOGY 1:40 PM (30 min.) U[facility]ms ELECTROCARDIOLOGY RADIOLOGY 3:10 PM (20 min.) Unr1 [facility], Nuclear Medicine 27 28 29 20 March [...] On HD since Aug 2011. No past [place], stress tests or coronary angiogorams. No chest [...] 1 tablet by mouth daily. ??? 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 Perez MD tobacco stemmer machine. Divisions of Cardiology [facility] Patient Care Team: Toña Jones MD as PCP - General (Nephrology) Ingrid Santana RN as Registered Nurse (Transplant) DONYA THOMAS documented in this encounter Plan of Treatment Not on filedocumented as of this encounter Visit Diagnoses Diagnosis Unspecified essential hypertension Pre-operative clearance Preoperative examination, unspecified documented in this encounter Care Teams Digital Music Instructor Relationship Specialty Start Date End Date Toña Jones MD PCP - General Nephrology 11/25/11 01/01/14 Ingrid Santana RN Registered Nurse Transplant 02/10/12 10/01/15 documented as of this encounter
--- OUTSIDE RECORDS SUMMARY | 2022-04-14 11:16 | XMS_ITS | Encounter Summary ---
:1950 Author Organization [place] Address [facility] [place] [address] Care Team Providers Name Role Phone Toña [...] on filedocumented in this encounter Care Teams Surgical Resident Relationship Specialty Start Date End Date Toña Jones MD PCP - General Nephrology 11/25/11 01/01/14 Momo Forbes PCP - General Family Practice 01/02/14 [facility] [address] [place] [address] Ingrid Santana, RN Registered Nurse Transplant 02/10/12 10/01/15 documented as of this encounter
--- OUTSIDE RECORDS SUMMARY | 2022-04-14 11:16 | XMS_ITS | Encounter Summary ---
:1950 Author Organization [place] Address [address] [facility] [place] [address] Care Team Providers Name Role Phone Toña [...] filedocumented in this encounter Care Teams Hand Tube Bender Relationship Specialty Start Date End Date Toña Jones MD PCP - General Nephrology 11/25/11 01/01/14 Momo Forbes PCP - General Family Practice 01/02/14 [facility] [address] [place] [address] Ingrid Santana, RN Registered Nurse Transplant 02/10/12 10/01/15 documented as of this encounter
--- OUTSIDE RECORDS SUMMARY | 2022-04-14 11:16 | XMS_ITS | Encounter Summary ---
:1950 Author Organization [place] Address [address] [place] [address]. [place] [address] Care Team Providers Name Role Phone Toña [...] on filedocumented in this encounter Care Teams Store Product Demonstrator Relationship Specialty Start Date End Date Toña Jones MD PCP - General Nephrology 11/25/11 01/01/14 Momo Forbes PCP - General Family Practice 01/02/14 [facility] [address] [place] [address] Ingrid Santana, RN Registered Nurse Transplant 02/10/12 10/01/15 documented as of this encounter
--- OUTSIDE RECORDS SUMMARY | 2022-04-14 11:16 | XMS_ITS | Encounter Summary ---
:1950 Author Organization [place] Address [address] [place] [address]. [place] [address] Care Team Providers Name Role Phone Toña [...] on filedocumented in this encounter Care Teams Full Stack Engineer Relationship Specialty Start Date End Date Toña Jones MD PCP - General Nephrology 11/25/11 01/01/14 Momo Forbes PCP - General Family Practice 01/02/14 [facility] [address] [place] [address] Ingrid Santana, RN Registered Nurse Transplant 02/10/12 10/01/15 documented as of this encounter
--- OUTSIDE RECORDS SUMMARY | 2022-04-14 11:16 | XMS_ITS | Encounter Summary ---
:1950 Author Organization [place] Address [facility] [place] [address] Care Team Providers Name Role Phone Toña [...] on filedocumented in this encounter Care Teams Vending Stand Supervisor Relationship Specialty Start Date End Date Toña Jones MD PCP - General Nephrology 11/25/11 01/01/14 Momo Forbes PCP - General Family Practice 01/02/14 [facility] [address] [place] [address] Ingrid Santana, RN Registered Nurse Transplant 02/10/12 10/01/15 documented as of this encounter
--- OUTSIDE RECORDS SUMMARY | 2022-04-14 11:16 | XMS_ITS | Encounter Summary ---
:1950 Author Organization [place] Address [address] [place] [address]. [place] [address] Care Team Providers Name Role Phone Toña Jones MD Primary Care Provider Reason for Visit Reason Comments Transplant Evaluation Kidney transplant evaluation - Diabetes, End Stage Renal Disease Encounter Details Date Type Department Care Team Description 02/08/2012 Office Visit The Transplant Edda Cardenas, Ty Blink, DM (diabetes 2nd Floor, Clinic 2A MD mellitus), type 2 (H) Tommy Wilburn (Primar y Dx) [address] [phone] Social History Tobacco Use Types Packs/Day Years [...] (willing/able to accept information): Yes Any cultural factors/church beliefs that may influence understanding or compliance? [...] uncontrolled documented in this encounter Care Teams Press Technician Relationship Specialty Start Date End Date Toña Jones MD PCP - General Nephrology 11/25/11 01/01/14 documented as of this encounter
--- OUTSIDE RECORDS SUMMARY | 2022-04-14 11:16 | XMS_ITS | Encounter Summary ---
:1950 Author Organization [place] Address [address] [place] [address]. [place] [address] Care Team Providers Name Role Phone Toña [...] on filedocumented in this encounter Care Teams Able Bodied Seaman Relationship Specialty Start Date End Date Toña Jones MD PCP - General Nephrology 11/25/11 01/01/14 Momo Forbes PCP - General Family Practice 01/02/14 [facility] [address] [place] [address] Ingrid Santana, RN Registered Nurse Transplant 02/10/12 10/01/15 documented as of this encounter
--- OUTSIDE RECORDS SUMMARY | 2022-04-14 11:16 | XMS_ITS | Encounter Summary ---
:1950 Author Organization [place] Address [address] [place] [address]. [place] [address] Care Team Providers Name Role Phone Toña [...] on filedocumented in this encounter Care Teams First Aid Instructor Relationship Specialty Start Date End Date Toña Jones MD PCP - General Nephrology 11/25/11 01/01/14 Momo Forbes PCP - General Family Practice 01/02/14 [facility] [address] [place] [address] Ingrid Santana, RN Registered Nurse Transplant 02/10/12 10/01/15 documented as of this encounter
--- OUTSIDE RECORDS SUMMARY | 2022-04-14 11:16 | XMS_ITS | Encounter Summary ---
:1950 Author Organization [place] Address [facility] [place] [address] Care Team Providers Name Role Phone Toña Jones MD Primary Care Provider Reason for Visit Reason Onset Date Comments Patient Reminder 02/01/2012 Encounter Details Date Type Department Care Team Description 02/01/2012 PRE VISIT Nephrology Joseph Quintana, Patient Reminder 2nd Floor, Clinic 2A MD Tommy Guillermo[address] [place], [place] [address] [place] [address] (Wo rk) [phone] Social History Tobacco Use Types Packs/Day Years [...] on filedocumented in this encounter Care Teams Pipe Stripper Relationship Specialty Start Date End Date Toña Jones MD PCP - General Nephrology 11/25/11 01/01/14 documented as of this encounter
--- OUTSIDE RECORDS SUMMARY | 2022-04-14 11:16 | XMS_ITS | Encounter Summary ---
:1950 Author Organization [place] Address [address] [place] [address]. [place] [address] Care Team Providers Name Role Phone Toña Jones MD Primary Care Provider Inrgid Santana RN Unavailable Momo Forbes Primary Care [...] filedocumented in this encounter Care Teams Electrical And Radio Mechanic Relationship Specialty Start Date End Date Toña Jones MD PCP - General Nephrology 11/25/11 01/01/14 Momo Forbes PCP - General Family Practice 01/02/[address] [address] Ingrid Santana, RN Registered Nurse Transplant 02/10/12 10/01/15 documented as of this encounter
--- OUTSIDE RECORDS SUMMARY | 2022-04-14 11:16 | XMS_ITS | Encounter Summary ---
:1950 Author Organization [place] Address [address] [place] [address]. [place] [address] Care Team Providers Name Role Phone Toña [...] on filedocumented in this encounter Care Teams Name Plate Stamper Relationship Specialty Start Date End Date Toña Jones MD PCP - General Nephrology 11/25/11 01/01/14 Momo Forbes PCP - General Family Practice 01/02/[address] [address] Ingrid Santana, RN Registered Nurse Transplant 02/10/12 10/01/15 documented as of this encounter
--- OUTSIDE RECORDS SUMMARY | 2022-04-14 11:16 | XMS_ITS | Encounter Summary ---
:1950 Author Organization [place] Address [facility] [place] [address] Care Team Providers Name Role Phone Toña Jones MD Primary Care Provider Ingrid Santana RN Unavailable Encounter Details Date Type Department Care Team Description 12/07/2011 Orders Only Nephrology Chucho Joshi MD Dialysis patient (H) 2nd Floor, Clinic 2A [address] (Primary Dx) Tommy Ruiz[address] [place] [address] [place], [place] [phone] (Wo rk) [address] [phone] Social History Tobacco Use Types Packs/Day Years Used Date Never Assessed Sex Assigned at Date Recorded Not on file documented as of this encounter Plan of Treatment Not on filedocumented as of this encounter Visit Diagnoses Diagnosis Dialysis patient (H) - Primary Renal dialysis status documented in this encounter Care Teams Door To Door Selling Agent Relationship Specialty Start Date End Date Toña Jones MD PCP - General Nephrology 11/25/11 01/01/14 Ingrid Santana, RN Registered Nurse Transplant 02/10/12 10/01/15 documented as of this encounter
--- OUTSIDE RECORDS SUMMARY | 2022-04-14 11:16 | XMS_ITS | Encounter Summary ---
:1950 Author Organization [place] Address [facility] [place] [address] Care Team Providers Name Role Phone Toña Jones MD Primary Care Provider Reason for Visit Reason Onset Date Comments Pre Visit Planning - Done 02/07/2012 Consult prior to kidney transplant, needs EKG please. Encounter Details Date Type Department Care Team Description 02/07/2012 PRE VISIT [facility] Barbara Bradley Pre Visit Planning - Physicians Heart MD Monae Done (Consult prior to Sanders [place] kidney transplant, [place] [address] needs EKG please.) 4th Floor, Clinic [address]B [address] [phone] Social History Tobacco Use Types [...] on filedocumented in this encounter Care Teams Rouge Presser Relationship Specialty Start Date End Date Toña Jones MD PCP - General Nephrology 11/25/11 01/01/14 documented as of this encounter
--- OUTSIDE RECORDS SUMMARY | 2022-04-14 11:16 | XMS_ITS | Encounter Summary ---
:1950 Author Organization [place] Address [address] [facility] [place] [address] Care Team Providers Name Role Phone Toña [...] on filedocumented in this encounter Care Teams Clerical Proofreader Relationship Specialty Start Date End Date Toña Jones MD PCP - General Nephrology 11/25/11 01/01/14 Momo Forbes PCP - General Family Practice 01/02/14 [facility] [address] [place] [address] Ingrid Santaan, RN Registered Nurse Transplant 02/10/12 10/01/15 documented as of this encounter
--- OUTSIDE RECORDS SUMMARY | 2022-04-14 11:16 | XMS_ITS | Encounter Summary ---
:1950 Author Organization [place] Address [facility] [place] [address] Care Team Providers Name Role Phone Toña Jones MD Primary Care Provider Reason for Referral - Closed Specialty Diagnoses / Procedures Referred By Contact Refer red To Contact Diagnoses Diabetes mellitus, type 2 (H) End stage renal disease (H) [facility]al [facility] Floor, [place] [phone] Referral ID Status Reason Start Date Expiration Date Visits Requ ested Visits Authorized [id number] Closed 12/02/2011 05/30/2012 1 1 - Closed Specialty Diagnoses / Procedures Referred By Contact Refer red To Contact Diagnoses Diabetes mellitus, type 2 (H) End stage renal disease (H) [facility] Renal [facility] Floor, [address] [phone] Referral ID Status Reason Start Date Expiration Date Visits Requ ested Visits Authorized [id number] Closed 12/02/2011 05/30/2012 1 1 - Closed Specialty Diagnoses / Procedures Referred By Contact Refer red To Contact Diagnoses Diabetes mellitus, type 2 (H) End stage renal disease (H) [facility] Renal 2nd Floor, [facility] 2A [place] [phone] Referral ID Status Reason Start Date Expiration Date Visits Requ ested Visits Authorized [id number] Closed 12/02/2011 05/30/2012 1 1 - Closed Specialty Diagnoses / Procedures Referred By Contact Refer red To Contact Diagnoses Diabetes mellitus, type 2 (H) End stage renal disease (H) [facility] Renal 2nd Floor, Clinic [address] [place] [phone] Referral ID Status Reason Start Date Expiration Date Visits Requ ested Visits Authorized [id number] Closed 12/02/2011 05/30/2012 1 1 - Closed Specialty Diagnoses / Procedures Referred By Contact Refer red To Contact Diagnoses Diabetes mellitus, type 2 (H) End stage renal disease (H) [facility] Renal [facility] Floor, [address] [phone] Referral ID Status Reason Start Date Expiration Date Visits Requ ested Visits Authorized [id number] Closed 12/02/2011 05/30/2012 1 1 - Closed Specialty Diagnoses / Procedures Referred By Contact Refer red To Contact Diagnoses Diabetes mellitus, type 2 (H) End stage renal disease (H) [facility] Renal [address] [place] [address], [address] [phone] Referral ID Status Reason Start Date Expiration Date Visits Requ ested Visits Authorized [id number] Closed 12/02/2011 05/30/2012 1 1 - Closed Specialty Diagnoses / Procedures Referred By Contact Refer red To Contact Diagnoses Diabetes mellitus, type 2 (H) End stage renal disease (H) [facility] Renal 2nd Floor, Clinic [address] [phone] Referral ID Status Reason Start Date Expiration Date Visits Requ ested Visits Authorized [id number] Closed 12/02/2011 05/30/2012 1 1 - Closed Specialty Diagnoses / Procedures Referred By Contact Refer red To Contact Diagnoses Diabetes mellitus, type 2 (H) End stage renal disease (H) [facility] Renal 2nd Floor, [facility] [address] [phone] Referral ID Status Reason Start Date Expiration Date Visits Requ ested Visits Authorized [id number] Closed 12/02/2011 05/30/2012 1 1 - Closed Specialty Diagnoses / Procedures Referred By Contact Refer red To Contact Diagnoses Diabetes mellitus, type 2 (H) End stage renal disease (H) [facility] Renal 2nd Floor, Clinic [address] [address] [phone] Referral ID Status Reason Start Date Expiration Date Visits Requ ested Visits Authorized [id number] Closed 12/02/2011 05/30/2012 1 1 Encounter Details Date Type Department Care Team Description 12/02/2011 Orders Only Nephrology Ingrid Santana, Diabetes mellitus, type 2 (H ); 2nd Floor, Clinic 2A RN End stage renal disease (H) [facility] [phone] Building (Work) [address] [place] [phone] Social History Tobacco Use Types Packs/Day [...] 2 (H) End stage renal disease (H) [employer] FOUNDER [employer] CTO Referral Routine Diabetes mellitus, Ordered: 12/02/2011 REFERRAL type 2 (H) End stage renal disease (H) NEPHROLOGY ADULT REFERRAL Referral Routine Diabetes mellit us, Ordered: 12/02/2011 type 2 (H) End stage renal disease (H) GENERAL SURG ADULT Referral Routine Diabetes mellitus, Ord ered: 12/02/2011 REFERRAL type 2 (H) End stage renal disease (H) DAIRY EQUIPMENT REPAIRER REFERRAL Referral Routine Diabetes mellitu s, Ordered: [...] disease documented in this encounter Care Teams Health Care Consultant Relationship Specialty Start Date End Date Toña Jones MD PCP - General Nephrology 11/25/11 01/01/14 documented as of this encounter
--- OUTSIDE RECORDS SUMMARY | 2022-04-14 11:16 | XMS_ITS | Encounter Summary ---
:1950 Author Organization [place] Address [facility]0 [place] [address] Care Team Providers Name Role Phone Toña [...] - HIM SCAN - 11/02/2005 8:27 AM INTERVENTIONAL PAIN PHYSICIAN ARCHIVE LAB RESULT - HIM SCAN - 11/02/2005 8:25 AM INTERVENTIONAL PAIN PHYSICIAN ARCHIVE documented in this encounter Results LAB RESULT - HIM SCAN - ARCHIVE (11/02/2005 8:27 AM INTERVENTIONAL PAIN PHYSICIAN) Specimen (Source) Anatomical Location Collection Method / Collectio n Time Received Time / Laterality Volume Narrative This result has an attachment that is no t available. Marcela Provider LAB - BLOOD ORDERABLES LAB RESULT - HIM SCAN - ARCHIVE (11/02/2005 8:25 AM INTERVENTIONAL PAIN PHYSICIAN) Specimen (Source) Anatomical Location Collection Method / Collectio n Time Received Time / Laterality Volume Narrative This result has an attachment that is no t available. Marcela Provider LAB - BLOOD ORDERABLES documented in this encounter Visit Diagnoses Not on filedocumented in this encounter Care Teams Manager Environmental Health And Safety Relationship Specialty Start Date End Date Toña Jones MD PCP - General Nephrology 11/25/11 01/01/14 Momo Forbes PCP - General Family Practice 01/02/14 [facility] [address] [place] [address] Ingrid Santana, RN Registered Nurse Transplant 02/10/12 10/01/15 documented as of this encounter
--- OUTSIDE RECORDS SUMMARY | 2022-04-14 11:16 | XMS_ITS | Encounter Summary ---
:1950 Author Organization [place] Address [facility] [place] [address] Care Team Providers Name Role Phone Toña [...] CARDIAC - HIM SCAN 08/30/2011 8:28 AM WOOD CHOPPER - ARCHIVE ECHO CARDIAC - HIM SCAN 08/30/2011 8:27 AM WOOD CHOPPER - ARCHIVE documented in this encounter Results EKG CARDIAC - HIM SCAN - ARCHIVE (08/30/2011 8:28 AM WOOD CHOPPER) Specimen (Source) Anatomical Location Collection Method / Collectio n Time Received Time / Laterality Volume Narrative This result has an attachment that is no t available. Marcela Provider ECG ORDERABLES ECHO CARDIAC - HIM SCAN - ARCHIVE (08/30/2011 8:27 AM WOOD CHOPPER) Specimen (Source) Anatomical Location Collection Method / Collectio n Time Received Time / Laterality Volume Narrative This result has an attachment that is no t available. Marcela Provider CV ECHO ORDERABLES documented in this encounter Visit Diagnoses Not on filedocumented in this encounter Care Teams Furnace Fitter Relationship Specialty Start Date End Date Toña Jones MD PCP - General Nephrology 11/25/11 01/01/14 Momo Forbes PCP - General Family Practice 01/02/14 [facility] [address] [place] [address] Ingrid Santana, RN Registered Nurse Transplant 02/10/12 10/01/15 documented as of this encounter
--- OUTSIDE RECORDS SUMMARY | 2022-04-14 11:16 | XMS_ITS | Encounter Summary ---
:1950 Author Organization [place] Address [address] [facility] [place] [address] Care Team Providers Name Role Phone Unavailable Primary Care Provider Unavailable Encounter Details Date Type Department Care Team Description 07/30/2009 Results [facility] Results [address] [place] [id number] Social History Tobacco Use Types Packs/Day Years Used Date Never Assessed Sex Assigned at Date Recorded Not on file documented as of this encounter Plan of Treatment Not on filedocumented as of this encounter Procedures Procedure Name Priority Date/Time Associated Diagnosis Comme [facility] RT DUPLEX Routine 07/30/2009 12:32 PM Results for this EXTREM VENOUS,UNI WELT SOLE LAYER procedure are in OR LTD the results section. documented in this encounter Results RT DUPLEX EXTREM VENOUS,UNI OR LTD (07/30/2009 12:32 PM WELT SOLE LAYER) Specimen (Source) Anatomical Collection Method Collection Time Re ceived Time Location / / Volume Laterality 07/30/2009 12:32 PM WELT SOLE LAYER Impressions RADIOLOGY RESULTS - 07/30/2009 4:21 PM [...]
--- OUTSIDE RECORDS SUMMARY | 2022-04-14 11:16 | XMS_ITS | Encounter Summary ---
:1950 Author Organization [place] Address [facility] [place] [address] Care Team Providers Name Role Phone Toña [...] on filedocumented in this encounter Care Teams Guide Dog Trainer Relationship Specialty Start Date End Date Toña Jones MD PCP - General Nephrology 11/25/11 01/01/14 Momo Forbes PCP - General Family Practice 01/02/14 [facility] [address] [place] [address] Ingrid Santana, RN Registered Nurse Transplant 02/10/12 10/01/15 documented as of this encounter
--- OUTSIDE RECORDS SUMMARY | 2022-04-14 11:16 | XMS_ITS | Encounter Summary ---
:1950 Author Organization [place] Address [address] [place] [address]. [place] [address] Care Team Providers Name Role Phone Toña Jones MD Primary Care Provider Ingrid Santana RN Unavailable Mmoo Forbes Primary Care Provider Encounter Details Date Type Department Care Team Description 01/28/1998 Hospital - [facility] Cesar Tejeda [facility] [address] [place], [place] [address] (Wo rk) Social History Tobacco Use Types Packs/Day Years Used Date Never Assessed Sex Assigned at Date Recorded Not on file documented as of this encounter Plan of Treatment Not on filedocumented as of this encounter Visit Diagnoses Not on filedocumented in this encounter Care Teams Transcripter Relationship Specialty Start Date End Date Toña Jones MD PCP - General Nephrology 11/25/11 01/01/14 Momo Forbes PCP - General Family Practice 01/02/[address] [address] Ingrid Santana, RN Registered Nurse Transplant 02/10/12 10/01/15 documented as of this encounter
--- OUTSIDE RECORDS SUMMARY | 2022-04-14 11:16 | XMS_ITS | Encounter Summary ---
:1950 Author Organization [place] Address [address] [place] [address]. [place] [address] Care Team Providers Name Role Phone Toña [...] filedocumented in this encounter Care Teams Communications Program Manager Relationship Specialty Start Date End Date Toña Jones MD PCP - General Nephrology 11/25/11 01/01/14 Momo Forbes PCP - General Family Practice 01/02/14 [facility] [address] [place] [address] Ingrid Santana, RN Registered Nurse Transplant 02/10/12 10/01/15 documented as of this encounter
--- OUTSIDE RECORDS SUMMARY | 2022-04-14 11:16 | XMS_ITS | Encounter Summary ---
:1950 Author Organization [place] Address [address] [place] [address]. [place] [address] Care Team Providers Name Role Phone Toña [...] on filedocumented in this encounter Care Teams Master Scheduler Relationship Specialty Start Date End Date Toña Jones MD PCP - General Nephrology 11/25/11 01/01/14 Momo Forbes PCP - General Family Practice 01/02/[address] [address] Ingrid Santana, RN Registered Nurse Transplant 02/10/12 10/01/15 documented as of this encounter
--- OUTSIDE RECORDS SUMMARY | 2022-04-14 11:16 | XMS_ITS | Encounter Summary ---
:1950 Author Organization [place] Address [address] [place] [address]. [place] [address] Care Team Providers Name Role Phone Toña [...] on filedocumented in this encounter Care Teams Biochemical Development Engineer Relationship Specialty Start Date End Date Toña Jones MD PCP - General Nephrology 11/25/11 01/01/14 Momo Forbes PCP - General Family Practice 01/02/14 [facility] [address] [place] [address] Ingrid Santana, RN Registered Nurse Transplant 02/10/12 10/01/15 documented as of this encounter
--- OUTSIDE RECORDS SUMMARY | 2022-04-14 11:16 | XMS_ITS | Encounter Summary ---
:1950 Author Organization [place] Address [address] [place] [address]. [place] [address] Care Team Providers Name Role Phone Toña [...] on filedocumented in this encounter Care Teams President And Chief Executive Officer Relationship Specialty Start Date End Date Toña Jones MD PCP - General Nephrology 11/25/11 01/01/14 Momo Forbes PCP - General Family Practice 01/02/14 [facility] [address] [place] [address] Ingrid Santana, RN Registered Nurse Transplant 02/10/12 10/01/15 documented as of this encounter
--- OUTSIDE RECORDS SUMMARY | 2022-04-14 11:16 | XMS_ITS | Encounter Summary ---
:1950 Author Organization [place] Address [address] [place] [address]. [place] [address] Care Team Providers Name Role Phone Toña [...] on filedocumented in this encounter Care Teams Baggageman Relationship Specialty Start Date End Date Toña Jones MD PCP - General Nephrology 11/25/11 01/01/14 Momo Forbes PCP - General Family Practice 01/02/14 [facility] [address] [place] [address] Ingrid Santana, RN Registered Nurse Transplant 02/10/12 10/01/15 documented as of this encounter
== END 2022-04-14 11:02 | disposition home or self-care (01) ==
LOC: WOUND 11:01
PROVIDERS: PCP Family Medicine; Visit Provider Surgery
DX: E11.622 Type 2 diabetes mellitus with other skin ulcer (principal); L89.893 Pressure ulcer of other site, stage 3; Z79.4 Long term (current) use of insulin
CPT/HCPCS: 99212

== ENCOUNTER 2022-04-29 12:11 | Outpatient (CLI) | payer MEDICARE, BC, SELFPAY ==
--- OUTSIDE RECORDS SUMMARY | 2022-04-29 12:14 | XMS_ITS | Continuity of Care Document ---
:1950 Author Organization [facility] Address [address] [address] [place] [address] Phone Care Team Providers Name Role Phone [...] Information [facility], 1 [address] [address], [place], [place], [id number], [place] tel:[phone] DEMARCO Cross No Darling MICHELE Referring [facility] Information [place]. Pro vider: [facility], Hosp [address] [place], [address], [address] [place], [address] [facility] [address], [place], [place], [facility] [id number], [place], [address], [place] [id number], [place] tel:+ . , [place], [id number] tel:[phone] . tel:[phone] [facility] Pancreas Nesset ACID CONCENTRATOR Digestive Clinic cyst Joan. [address] [facility], [address] [place], [address], [address], [place] [facility], [place], [place], [id number], [id number], [place]. tel:+ tel:[phone] [facility] [place] Pancreas December- Nesset ACID CONCENTRATOR [facility] Clinic cyst Joan. [address] [employer] [place], 1 [place], [address], [address], [facility], s, [place], [place], [id number], [id number], [place]. tel: [phone] [facility] [place] Pancreas Sep- Nesset ACID CONCENTRATOR Digestive Clinic cyst Joan. [address] [facility], [address] [place] [address] [place], [address], [address], [facility], s, [place], [id number], [id number], [place]. tel: [phone] Subsqt [facility] Cross No Sep- Nesset ACID CONCENTRATOR Referring Hosp-da E&m [facility] Information Joan. 20 09 Provider: [facility], Hosp [address] [place] [address] NE, Aren COLLAR POINTER [address], [address], [place], [address] [facility] [address], [place], [place], [place], [place], [id number], [id number], [place], [address]. [place]. tel:+50 tel: tel:[phone] Init Hosp-da [facility] Cross No Aug- Prem MICHELE Referri ng E&m Mod [facility] Information Angelina. 3001 P rovider: [facility], Hosp [address] [place] [address] NE, Arendt COLLAR POINTER [address], [address], [place], [address] [facility] [address], [place], [place], [place], [place], [id number], [id number], [place], [address]. [place]. tel:+50 tel: tel:[phone] [id number] Family History Family Member Type Diagnosis Age [...] Registry Payers Payer name Insurance type Covered libertarian ID Authorization(s ) No Information Social History [...]
--- OUTSIDE RECORDS SUMMARY | 2022-04-29 12:14 | XMS_ITS | Clinical Summary ---
:1950 Author Organization [employer] [facility] [place] [address] Care Team Providers Name Role Phone Momo Forbes MD Primary Care Provider [phone] Allergies No known active allergies Medications Medication Sig Dispensed Refills Start Date End Date Status mycophenolate Take 3 capsules by 0 06/03/2016 Active (CELLCEPT) 250 mg mouth every 12 capsuleIndications: hours. -donor kidney transplant recipient rosuvastatin TAKE ONE TABLET BY 90 tablet 1 07/11/2018 Active (CRESTOR) 10 mg MOUTH EVERY DAY AT tabletIndications: BEDTIME Hyperlipidemia, unspecified hyperlipidemia type losartan (COZAAR) TAKE ONE TABLET BY 90 tablet 0 08/06/2019 Active 100 mg MOUTH EVERY DAY tabletIndications: Hypertension escitalopram oxalate Take 20 mg by mouth 0 Active (LEXAPRO) 20 mg once daily. tablet miscellaneous As directed. KCI 1 unit 0 09/24/2020 Active medical supply wound VAC Setting miscIndications: 125mmHg placed Diabetic foot 09/19/20 - Okay to infection (HC) use [facility] Wound Vac at [facility] Right foot wound debridement with application of integra bilayer matrix and wound vac, 10.0 cm x 5.0 cm x 0.6 cm. M- W-F dressing changes gabapentin Take 1 capsule by 21 capsule 0 09/26/2020 Active (NEURONTIN) 300 mg mouth 3 times capsuleIndications: daily. Indications: neuropathic pain neuropathic pain durable medical Custom TUOLUMNE boot to 1 Each 0 11/26/2020 Active equipment control charcot (DME)Indications: midfoot instability Abnormality of gait, Diabetes mellitus with neurological manifestations, uncontrolled, Status post below knee amputation, unspecified laterality (HC), Type 2 diabetes mellitus with diabetic nephropathy, with long-term current use of insulin (HC) durable medical Extra depth 1 Each 0 04/20/2021 A ctive equipment diabetic shoes, 3 (DME)Indications: pair tri layer Diabetic foot (HC), accommodative Peripheral inserts polyneuropathy, Charcot's joint of right foot durable medical Modify shoe/insert 1 Each 0 06/18/2021 Active equipment so that there is (DME)Indications: not pressure at the Ulcer of right foot, ulceration sites. limited to breakdown of skin (HC) Gauze Bandage 4 X 4 For home use. 30 Each 10 06/18/2021 Active Indications: Ulcer of right foot, limited to breakdown of skin (HC) gauze bandage (Shalom Apply topically to 30 Each 5 06/18/2021 Active Flexible Gauze) 4 X affected area(s). 2.5 -yard bndgIndications: Ulcer of right foot, limited to breakdown of skin (HC) Adhesive Tape (Paper Apply topically to 4 Each 5 06/18/2021 Active Tape) 1 X 10 -yard affected area(s). tapeIndications: Ulcer of right foot, limited to breakdown of skin (HC) tacrolimus (PROGRAF) Take 1 mg by mouth 0 Active 1 mg capsule every morning. tacrolimus (PROGRAF) Take 0.5 mg by 0 Active 0.5 mg capsule mouth once daily in the evening. aspirin (ECOTRIN) 81 Take 1 Tablet (81 0 09/29/2021 Active mg enteric coated mg) by mouth once tabletIndications: daily with a meal. HTN (hypertension) insulin lispro Inject 15-20 units 0 09/30/2021 Active (HUMALOG; ADMELOG) subcutaneous 3 100 unit/mL times daily before injection meals. insulin glargine, Inject 40 units 0 09/30/2021 Active U-100, 100 unit/mL subcutaneous at (3 mL) bedtime. penIndications: Type 2 diabetes mellitus with complication, with long-term current use of insulin (HC) durable medical Extra depth 1 Each 0 01/05/2022 A ctive equipment diabetic shoes, 3 (DME)Indications: pair tri layer Diabetic foot (HC), accommodative Peripheral inserts polyneuropathy, Charcot's joint of right foot tamsulosin (FLOMAX) Take 0.4 mg by 0 11/02/2021 Active 0.4 mg capsule mouth at bedtime. carvediloL (COREG) Take 12.5 mg by 0 Active 12.5 mg tablet mouth 2 times daily with meals. Active Problems Problem Noted Date Acute kidney injury 01/11/2022 Urinary tract infection 01/11/2022 Pressure injury of buttock, stage 2 01/11/2022 Permanent atrial fibrillation 01/11/2022 Mood disorder 01/11/2022 Malignant neoplasm of skin 03/24/2021 Ulcer of right foot with fat layer exposed 11/12/2020 Diabetic foot infection 09/18/2020 Foot abscess 09/18/2020 Syncope and collapse 03/08/2019 Morbid obesity 06/16/2016 Major depressive disorder, recurrent episode, moderate 01/28/2015 Type 2 diabetes mellitus with diabetic nephropathy 10/2014 Aftercare following organ transplant 02/05/2014 Immunosuppression 02/05/2014 Atrial fibrillation 02/04/2014 -donor kidney transplant recipient 02/02/2014 Tubular adenoma of colon 01/01/2014 Hypertension 09/26/2012 Insomnia 09/26/2012 History of tobacco use 12/02/2011 HTN, kidney transplant related 12/02/2011 Malaise and fatigue 12/02/2011 Peripheral neuropathy 12/02/2011 Vitamin D deficiency 11/20/2011 ACP (advance care planning) 08/30/2011 Overview: Patient has identified Health Care Agent (s): No Add Health Care Agents: No Patient has Advance Care Plan Documents (Health Care Directive, POLST): no Patient has identified Specific Treatmen t Preferences: Yes Specific Treatment Preferences: a.) Code Status: CPR/Attempt Resuscitation b.) Goals of Treatment: iii. Provide Lif e sustaining treatment. Intubate, cardiovert, and provide medically necessary care to sustain life. c.) Interventions and Treatments: i. Ant ibiotics: - Use Aggressive antibiotic treatment Thrombocytopenia, unspecified 08/30/2011 Hyperlipidemia 11/14/2010 Gout 06/09/2010 Thyroid nodule 03/02/2010 Hyperparathyroidism, secondary renal 01/27/2010 Anemia associated with chronic renal failure 0 Iron deficiency anemia 08/19/2009 Proliferative diabetic retinopathy(362.02) 10/06/2006 Erectile Dysfunction 07/30/2006 Lower limb amputation, below knee 12/22/2005 CHARCOT FOOT 12/14/2005 PERIPHERAL NEUROPATHY 12/14/2005 Acute osteomyelitis of ankle and foot 12/14/2005 Overview: L foot--left BKA on 12/17/05 Resolved Problems Problem Noted Date Resolved Date CKD stage 3 due to type 2 diabetes mellitus 11/03/2016 05/31/2017 Type 2 diabetes mellitus with diabetic nephropathy 5 01/28/2015 Type 2 diabetes mellitus 10/10/2011 01/22/2015 Type II or unspecified type diabetes mellitus with 2 10/17/2013 neurological manifestations, uncontrolled(250.62) CKD (chronic kidney disease) stage 5, GFR less than 15 08/3010/17/2013 ml/min End-stage renal disease needing dialysis 08/30/2011 02/12/2014 Anemia, unspecified 08/30/2011 10/17/2013 Knee pain, right 05/27/2010 06/09/2010 Overview: severe Chest pressure 05/27/2010 06/09/2010 CKD (chronic kidney disease) stage 4, GFR 15-29 ml/min 05/2708/30/2011 Diabetes mellitus type II 05/27/2010 06/09/2010 Overview: a system change updated this record. Thi s will not affect patient care or billing. This comment can be deleted. Amputation stump infection 05/27/2010 06/09/2010 Gait instability 05/27/2010 06/09/2010 Major depression, recurrent 04/21/2010 01/28/2015 CKD (chronic kidney disease) stage 3, GFR 30-59 ml/min 03/0506/09/2010 CKD (chronic kidney disease) stage 4, GFR 15-29 ml/min 05/3103/05/2010 Depressive disorder, not elsewhere classified 10/06/2006 05/15/2008 Overview: Unwilling to take meds. FOOT ULCER 12/14/2005 07/30/2006 Unspecified essential hypertension 12/14/200510/17 Anemia, unspecified 12/14/2005 07/30/2006 RENAL INSUFFICIENCY 12/14/2005 05/31/2009 STAPH AUREUS BACTEREMIA 12/14/2005 07/30/2006 Encounters Date Type Specialty Care Team Description 04/08/2022 Lab Requisition Unknown, Doctor 02/25/2022 Lab Requisition Felicia Tate MD 02/01/2022 Telephone Angie Chatterjee DPM Outsi de Order (DIABETIC SHOES AND INSER TS) from Last 3 Months Immunizations Name Administration Dates Next Due Influenza Virus, Unspecified 05/29/2020, 05/20/2009 Influenza, High-dose Inactivated 10/09/2019, 08/09/2016 Influenza, High-dose Quadrivalent 09/22/2021, 07/30/2021 Inactivated Influenza, IIV3 (Age >=3 years) 07/12/2017, 06/05/2013, 04/23, 05/12/2011, 05/15/2010, 05/20/2009 Influenza, IIV4 05/29/2020, 08/12/2015, 05/24/2014 Influenza, Inactivated IIV3 (Age 65+ 06/26/2018, 05/30/2017 Years) Preserv Free Pneumococcal Poly,23-Valent 05/05/2011 (Pneumovax) Pneumococcal conj 13-Valent (Prevnar 03/17/2016 13) Td (Age >=7 Years) 01/12/2019 Td, Preservative Free (age >= 7 01/12/2019 Years) Family History Medical History Relation Name Comments Heart Disease Father Other Mother Parkinson's, Alz heimers Relation Name Status Comments Brother Alive Good health Father CHF, ASCVD Mother (Age 70) Ervin Thurston rkinsons Social History Tobacco Use Types Packs/Day Years Used Date Former Smoker Cigars 30 Quit: 08/22/19 05 Smokeless Tobacco: Never Used Tobacco Cessation: Counseling Given: Yes Alcohol Use Standard Drinks/Week Comments No 0 (1 standard drink = 0.6 oz pure alcoho l) Alcohol Habits Answer Date Recorded How often do you have a drink containing alcohol? Not asked How many drinks containing alcohol do you have on a typical Not asked day when you are drinking? How often do you have six or more drinks on one occasion? Ne mariel 01/16/2019 Comment: Not asked Sex Assigned at Date Recorded Not on file Obstetrics History Last Filed Vital Signs Vital Sign Reading Time Taken Comments Blood Pressure 148/90 01/15/2022 12:42 PM CDT Pulse 64 01/15/2022 12:42 PM CDT Temperature 36.7 ??C (98 ??F) 01/15/2022 12:42 PM CDT Respiratory Rate 18 01/15/2022 12:42 PM CDT Oxygen Saturation 97% 01/15/2022 12:42 PM CDT Inhaled Oxygen Concentration - - Weight 132.4 kg (291 lb 12.8 oz) 01/14/2022 8:06 AM CDT Height 182.9 cm (6') 01/11/2022 6:57 AM CDT Body Mass Index 39.58 01/11/2022 6:57 AM CDT Plan of Treatment Upcoming Encounters Date Type Specialty Care Team Description 07/06/2022 Office Visit Angie Chatterjee, DPChance [address] [place] [address] (Wo rk) Health Maintenance Due Date Last Done Comments Tdap 1961 Zoster (shingles) series for age 0803/27/1969 50+ (1 of 2) Medicare Wellness for age 65+ 2015 Pneumococcal series for age 65+ (3 03/17/2017 03/17/2016, 0 05/05/2011 - PPSV23 or PCV20) Depression screening for age 12+ 06/26/2019 06/26/2018, Colonoscopy through age 75 03/20/2020 03/20/2015, 5, 03/17/2012, Additional history exists COVID-19 vaccine series (4 - 12/15/2021 09/22/2021, 021, Booster for Moderna series) 10/21/2020 Influenza for age 65+ 04/22/2022 09/22/2021, 07/30/2021, 05/29/2020, Additional history exists BMI (ht and wt on same day) for 01/05/2023 01/05/2022, 09/22, age 18+ 01/12/2019, Additional history exists Lipids for age 45-75 09/19/2025 09/19/2020, 05/15/2018, 01/19/2017, Additional history exists Tetanus booster 01/12/2029 01/12/2019, 01/12/2019, 08/11/2006 Hepatitis C screening for age Completed 07/29/2014, 2005 18-79 AAA screening age 55-77 Completed 09/17/2020 Goals Goal Patient Goal Associated Recent Patient-Stated? Author Type Problems Progress BLOOD PRESSURE Blood Pressure No McInty re, - MAINTAINS BP Momo less than MD Christoph 140/90 Medical Devices Implanted Type Area Farm Reporter Device Shelf Model / Identifier Expiration Date Ser ial / Lot Drsg Wound 4x5in Matrix Bilayer Right: 08/21/2020 [id number] / Implanted: Qty: 1 on 09/23/2020 by Araceli Fowler DPM at [facility] / [id number] Description: DRSG WOUND 4X5IN MATRIX JYOTI BHAVIK Procedures Procedure Name Priority Date/Time Associated Diagnosis Comme nts LAB TRACKING EVENT Routine 04/07/2022 11:40 AM CDT PATH TISSUE EXAM Routine 04/07/2022 11:40 AM Resu lts for this CDT procedure are i n the results section. LAB TRACKING EVENT Routine 02/24/2022 12:00 PM CDT PATH TISSUE EXAM Routine 02/24/2022 12:00 PM Resu lts for this CDT procedure are i n the results section. from Last 3 Months Results LAB TRACKING EVENT (04/07/2022 11:40 AM CDT)Only the most recent of2 results within the time period is included. Specimen Anatomical Collection Method Collection Time Receive d Time (Source) Location / / Volume Laterality Other (Other) Client Collect / 04/07/2022 11:40 2021 3:34 Unknown AM CDT PM CDT Doctor Unknown LAB BILL ONLY Performing Organization Address City/State/ZIP Code Phon e Number [facility] [address] [place] [address] LABORATORY-CENTRAL 1999 LABORATORY PATH TISSUE EXAM (04/07/2022 11:40 AM CDT)Only the most recent of2 resultswithin the time period is included. Component Value Ref Test Analysis Performed At [facility] gist Range Method Time Signature Case Report Pathology Report ?Case: [id number] ? 04/12/2022 [facility] Authorizing Provider: ??Unkn own, Doctor ?Collected: ? 04/07/2022 1140 ? 11:31 AM LABO RATORY-CE Ordering Location: ? [facility] LAB ?Received: ?04/08/2022 1609 ? CDT NT RAL Pathologist: ? Ricky Lisa ? LABORATORY ? MD Jessie ? Specimen: ?Right Clavicl e ? Final A) SKIN, RIGHT CLAVICLE, WOUND, BIOPSY: 04/12/2022 [facility] Electronically Diagnosis 1. Ulceration with serum crust and underlying granulat ion tissue 11:31 AM LABORATORY-CE signed by 2. Negative for malignancy CDT NTR AL Ricky Lisa MD on 04/12/20 22 at 11:31 AM Comment The presence 04/12/2022 [facility] of blue and 11:31 AM LABORATORY-CE green ink are CDT NTRAL confirmed on LABORATORY tissue sections. Clinical Mr. Guthrie is 04/12/2022 [facility] Information a 72 y.o. with 11:31 AM LABORATORY-CE a right CDT NTRAL clavicle LABORATORY wound, post excision site. Gross A) Received in formalin, lab eled with the patient's name and right clavicle, are two skin punch biopsies. The first is a 0.3 x 0.3 x 0.4 cm skin punch biopsy. The skin surface displays a 0.2 x 0.1 cm 04/12/2022 [facility] Description depressed brown possible les ion. The specimen is inked blue and entirely submitted in cassette A1. The second is a 0.3 x 0.2 x 0.4 cm skin punch biopsy. The skin surface is smooth and day-white with no 11:31 AM LABORATORY-CE obvious lesion. The specimen is inked green and entirely submitted in cassette A2. CDT NTRAL LABORATORY LH 04/08/2022 Microscopic The final 04/12/2022 [facility] Description diagnosis is 11:31 AM LABORATORY-CE based on CDT NTRAL microscopic LABORATORY examination of appropriate sections of all specimens. Additional 04/12/2022 [facility] Information Interpreted at [facility], Central Laboratory - [address], [place] [address] 11:31 AM LABORATORY-CE CDT NTRAL LABORATORY Specimen Anatomical Collection Method Collection Time Receive d Time (Source) Location / / Volume Laterality Other (Right 04/07/2022 11:40 04/08/2022 4:09 Clavicle) AM CDT PM CDT Doctor Unknown PATHOLOGY/CYTOLOGY Performing Organization Address City/State/ZIP Code Phon e Number [facility] [address] [place] [address] LABORATORY-CENTRAL 2000 LABORATORY from Last 3 Months Additional Health Concerns Infection Onset Date Last Indicated MRSA ClearanceComment: If >12 months sin ce positive culture, precautions can be discontinued if patient has no MRSA risk factors. 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 right check exclusions for contact precaution dis continuation (if > 12 months since positive culture): resides in acute/[facility], receiving hemodialysis, has chronic open wounds/skin damage, has long-te rm percutaneous indwelling medical devic es Exclusions for nares collection (if <12 months since positive culture) include all of the previous exclusions plus patients on antibiotics 7 days prior to collection Insurance Payer Benefit Plan / Subscriber ID Effective Phone Address T ype Group Dates MEDICARE PART MEDICARE PART A [id number] 2011-Prese A TTN: CLAIMS A - HB USE HB ONLY nt [address] [place] [address] MEDICARE PART MEDICARE PART B [id number] 2012-Pres A TTN: CLAIMS B - HB USE HB ONLY [place] [address] [place] [address] MEDICARE - PB MEDICARE PB [id number] 2014-Prese ATTN: CLAIMS USE ONLY ONLY nt [address] [place] [address] BLUE CROSS BLUE CROSS OF [id number] 2016-Prese [address] [place] [address] BLUE CROSS BLUE CROSS OF [id number] 2013-Prese [address] [place] [address] MEDICARE PPS HC MEDICARE PPS [id number] 2011-Prese [address] [place] [address] (Home) [place] [address] Diego Guthrie Personal/Family Self [address] (Home) [place] [address] Diego Guthrie Personal/Family Self [address] (Home) [place] [id number] Diego Guthrie Intermediate Self [address] (Home) [place] [id number] Advance Directives Documents on File Type Date Recorded Patient Sand Caster Explanati on POLST 09/26/2020 Latest Code Status on File Code Status Date Activated Date Inactivated Comments Full Code 01/11/2022 6:35 AM 01/14/2022 1:21 PM Code Status Discussion: Reviewed Preferences Full Code 02/05/2021 11:25 AM 02/05/2021 5:59 PM Code Status Discussion: Not Discussed Full Code 09/22/2020 3:20 PM 09/26/2020 3:54 PM Code Status Discussion: Discussed DNR 09/18/2020 4:14 AM 09/22/2020 3:20 PM Code Status Discussion: Discussed Full Code 09/18/2020 4:12 AM 09/18/2020 4:14 AM Code Status Discussion: Discussed Care Teams Bus And Trolley Dispatcher Relationship Specialty Start Date End Date Momo Forbes MD PCP - General Family Practice 01/22/211999 [place] [address]
--- OUTSIDE RECORDS SUMMARY | 2022-04-29 12:15 | XMS_ITS | Encounter Summary ---
:1950 Author Organization [place] Address [address] [place] [address]. [place] [address] Care Team Providers Name Role Phone Momo Forbes Primary Care Provider Joseph Quintana MD Unavailable Encounter Details Date Type Department Care Team Description 08/25/2021 Orders Only [facility] Jose, Kidney tr ansplanted; Transplant Clinic BOGDAN Marcano -donor kidney transp lant recipient [address] [place] [address] Social History Tobacco Use Types Packs/Day [...] transplant documented in this encounter Care Teams Tool Coordinator Relationship Specialty Start Date End Date Momo Forbes PCP - General Family Practice 01/02/14 [facility] [address] [place] [address] Joseph Quintana, Assigned Nephrology 03/29/21 Provider 7 [facility] [address] [facility] [address] [place], [place] [address] documented as of this encounter
--- OUTSIDE RECORDS SUMMARY | 2022-04-29 12:15 | XMS_ITS | Encounter Summary ---
:1950 Author Organization [place] Address [address] [place] [address]. [place] [address] Care Team Providers Name Role Phone Momo Forbes A Primary Care Provider Reason for Visit Reason Onset Date Comments Transplant Immunosuppression Management 08/11/2020 Encounter Details Date Type Department Care Team Description 08/11/2020 [facility] Barbie Ugalde [facility] nsplant Transplant Clinic BOGDAN Nam Immunosuppression [address] [place] [address] [place] [address] Social History Tobacco Use Types [...] Barbie Ugalde RN - 08/11/2020 4:16 PM MAIL TECHNICIAN ISSUE: Tacrolimus IR level 11.7 on 08/08/20, [...] Organ Transplant, Post Kidney and Pancreas Transplant Junior Account Manager [phone] OUTCOME: Spoke with patient, they confirm accurate trough level and current dose 2 mg BID. Patient confirmed dose change to 1.5 mg BID and to repeat labs in 1 weeks. Orders sent to preferred pharmacy for dose change and lab for repeat labs. Patient voiced understanding of plan. TECHNICIAN documented in this encounter Plan of Treatment Not on filedocumented as of this encounter Visit Diagnoses Diagnosis Kidney transplanted - Primary Kidney replaced by transplant -donor kidney transplant recipie nt Kidney replaced by transplant documented in this encounter Care Teams Nutrition Aide Relationship Specialty Start Date End Date Momo Forbes PCP - General Family Practice 01/02/[address] [address] documented as of this encounter
--- OUTSIDE RECORDS SUMMARY | 2022-04-29 12:15 | XMS_ITS | Encounter Summary ---
:1950 Author Organization [place] Address [facility] [place] [address] Care Team Providers Name Role Phone Momo Forbes A Primary Care Provider Reason for Visit Reason Onset Date Comments Transplant Immunosuppression Management 09/08/2020 Encounter Details Date Type Department Care Team Description 09/08/2020 Telephone [facility] Tram, Transplant Transplant Clinic Barbie Nam, Immunosuppression [address] [place] [address] [place] [address] Social History Tobacco Use Types [...] Barbie Ugalde RN - 09/09/2020 3:06 PM [employer] Second call placed to patient and voicemail message left. ER AND GRAZIER Telephone Encounter - Barbie Ugalde RN - 09/08/2020 10:31 AM [employer] Images from the original note were not included. Message Received: 3 days ago Message Contents Beny Staton, [facility] Barbie Ugalde, BOGDAN ?? Latrell has not filled immunos since 07/21. ??His tacro dose changed and he has not filled the 0.5mg in over a year. ??He has not returned our calls. ?? Beny Staton [facility] Specialty Pharmacist [phone] OUTCOME: Tacrolimus dose was decreased from 2mg [...] he is currently taking and need labs. ER AND GRAZIER documented in this encounter Plan of Treatment Not on filedocumented as of this encounter Visit Diagnoses Not on filedocumented in this encounter Care Teams Group Worker Relationship Specialty Start Date End Date Momo Forbes PCP - General Family Practice 01/02/14 [place] [id number] documented as of this encounter
--- OUTSIDE RECORDS SUMMARY | 2022-04-29 12:15 | XMS_ITS | Encounter Summary ---
:1950 Author Organization [place] Address [address] [facility] [place] [address] Care Team Providers Name Role Phone Forbes, Ton Primary Care Provider Reason for Visit Reason Comments RECHECK Follow Up [place] Encounter Details Date Type Department Care Team Description 03/05/2021 Virtual Visit [facility] Joseph Quintana HTN, ki dney transplant related (Primary Dx); Nephrology Clinic MD Herminio Kidney replaced by transplant; [address] Aftercare following organ tr ansplant; [address] [place] [address] SE RANJAN [address] [facility] Immunosu ppression (H); [address] Vitamin D deficiency; [place] [phone] Social History Tobacco Use Types Packs/Day Years [...] would you like to be contacted at? [phone] How would you like to obtain your [...] and ended up being discharged to a retirement. He is doing better and now back [...] unspecified documented in this encounter Care Teams Metalsmith Helper Relationship Specialty Start Date End Date Momo Forbes PCP - General Family Practice 01/02/14 [facility] [address] [place] [address] documented as of this encounter
--- OUTSIDE RECORDS SUMMARY | 2022-04-29 12:15 | XMS_ITS | Encounter Summary ---
:1950 Author Organization [place] Address [address] [place] [address] Care Team Providers Name Role Phone Momo Forbes Primary Care Provider Joseph Quintana MD Unavailable Encounter Details Date Type Department Care Team Description 11/16/2021 External Order [facility] Outside, Provide r Results Molecular Diagnostic s [address] [place] [address] Social History Tobacco Use Types Packs/Day Years [...] - 12/02/2021 8:18 AM CDT Verified by uYdi Ruano on . Felicia Tate MD LAB [...] BLOOD ORDERABLES Performing Organization Address [facility] Code Phon e Number BREEZE PFT NON-INTERFACED (ONBASE SCANS) (ABNORMAL) Lipid Profile (11/16/2021 7:12 PM CDT) [facility] Method Time Signature Cholesterol 98 90 [...] LAB - BLOOD ORDERABLES Performing Organization Address City/[facility]/ZIP Code Phon e Number BREEZE PFT NON-INTERFACED (ONBASE SCANS) (ABNORMAL) CBC with Platelets & Differential (11/16/2021 4:35 PM CDT) [facility] Method Time Signature WBC Count 6.8 [...] LAB - BLOOD ORDERABLES Performing Organization Address City/[facility]/ZIP Code Phon e Number BREEZE PFT NON-INTERFACED (ONBASE SCANS) documented in this encounter Visit Diagnoses Not on filedocumented in this encounter Care Teams Chute Tapper Relationship Specialty Start Date End Date Momo Forbes PCP - General Family Practice 01/02/14 [facility] [address] [place] [address] Joseph Quintana, Assigned Nephrology 03/29/21 MD Provider 717 [facility] 353 [facility] [address] [place], [place] [id number] documented as of this encounter
--- OUTSIDE RECORDS SUMMARY | 2022-04-29 12:15 | XMS_ITS | Encounter Summary ---
:1950 Author Organization [place] Address [address] [place] [address] Care Team Providers Name Role Phone Momo Forbes Primary Care Provider Joseph Quintana MD Unavailable Encounter Details Date Type Department Care Team Description 01/19/2022 External Order formerly [facility] Outside, Provide r Results Molecular Diagnostic s [address] [place] [address] Social History Tobacco Use Types Packs/Day Years [...] UA with Microscopic (01/19/2022 11:16 AM CDT) [facility] gist Method Time Signature Color Urine YEL YELLOW NON-INTERFAC (External) ED (ONBASE SCANS) Appearance Urine CLEAR CLEAR NON-INTERFAC (External) ED (ONBASE SCANS) Glucose Urine 2+ NEGATIVE NON-INTERFAC (External) ED (ONBASE SCANS) Bilirubin Urine NEG NEGATIVE NON-INTERFAC (External) ED (ONBASE SCANS) Ketones Urine NEG NEGATIVE NON-INTERFAC (External) ED (ONBASE SCANS) Specific [place] 1.010 1.005 - NON-INTERFAC Urine (External) 1.030 [...] on filedocumented in this encounter Care Teams Risk Control Analyst Relationship Specialty Start Date End Date Momo Forbes PCP - General Family Practice 01/02/14 [facility] [address] [place] [address] Joseph Quintana, Assigned Nephrology 03/29/[address] [place] [address] [address] [place], [place] [address] documented as of this encounter
--- OUTSIDE RECORDS SUMMARY | 2022-04-29 12:15 | XMS_ITS | Encounter Summary ---
:1950 Author Organization [place] Address [facility] [place] [address] Care Team Providers Name Role Phone Momo Forbes A Primary Care Provider Reason for Visit Reason Onset Date Comments Transplant Immunosuppression Management 07/03/2020 Late to refill Encounter Details Date Type Department Care Team Description 07/03/2020 Telephone [facility] Tram, Transplant Transplant Clinic Barbie Nam, Immunosuppression [address] [place] [address] RN Management (Late to [place], [place] refill) [phone] Social History Tobacco Use [...] Barbie Ugalde, BOGDAN - 07/03/2020 10:20 AM PATENTED HOGSHEAD ASSEMBLER Images from the original note were not [...] copy to patient so he is aware. 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
--- OUTSIDE RECORDS SUMMARY | 2022-04-29 12:15 | XMS_ITS | Encounter Summary ---
:1950 Author Organization [place] Address [facility] [place] [address] Care Team Providers Name Role Phone Momo Forbes Primary Care Provider Joseph Quintana MD Unavailable Reason for Visit Reason Onset Date Comments Voicemail 04/13/2022 Encounter Details Date Type Department Care Team Description 04/13/2022 Telephone [facility] Transplant Obdulia Peacock, BOGDAN Voicemail Clinic [address] [place] [address] [phone] Social History Tobacco Use Types Packs/Day [...] to patient via mail Gretta Peacock RN Batch Tank Controller [phone] Telephone Encounter - Adriana Raza - 04/13/2022 2:31 PM CDT Voicemail Date/Time: 04/13/22 2:27 pm Reason for call: Diego received a letter stating we have been trying ot reach him so he was responding documented in this encounter Plan of Treatment Not on filedocumented as of this encounter Visit Diagnoses Not on filedocumented in this encounter Care Teams Chicken Cutter Relationship Specialty Start Date End Date Momo Forbes PCP - General Family Practice 01/02/14 [facility] [address] [place] [address] Joseph Quintana, Assigned Nephrology 03/29/21 MD Provider [address] [place] [address] documented as of this encounter
--- OUTSIDE RECORDS SUMMARY | 2022-04-29 12:15 | XMS_ITS | Encounter Summary ---
:1950 Author Organization [place] Address [facility] [place] [address] Care Team Providers Name Role Phone Forbes, Momo He Primary Care Provider Encounter Details Date Type Department Care Team Description 10/23/2020 Telephone [facility] Barbie Ugalde Transplant Clinic BOGDAN Nam [address] [place], [place] [phone] Social History Tobacco Use [...] Barbie Ugalde RN - 10/23/2020 4:27 PM UNEMPLOYMENT INSPECTOR Returned call and left second voicemail message. Patient mentioned in previous phone call he was interested in donating his body upon passing to [facility] for science. Please sent to following website for more information: [email or web address] PLOYMENT INSPECTOR Telephone Encounter - Gladis Sosa RN - 10/23/2020 3:21 PM CST Patient Call: Voicemail Date/Time: 10/23/20 139pm Reason for call: Patient left a message requesting a call back PLOYMENT INSPECTOR documented in this encounter Plan of Treatment Not on filedocumented as of this encounter Visit Diagnoses Not on filedocumented in this encounter Care Teams Chain Tender Relationship Specialty Start Date End Date Momo Forbes PCP - General Family Practice 01/02/14 [facility] [address] [place] [address] documented as of this encounter
--- OUTSIDE RECORDS SUMMARY | 2022-04-29 12:15 | XMS_ITS | Encounter Summary ---
:1950 Author Organization [place] Address [facility] [place] [address] Care Team Providers Name Role Phone Momo Forbes Primary Care Provider Joseph Quintana MD Unavailable Encounter Details Date Type Department Care Team Description 01/27/2021 External Order [facility] Outside, Provider Results Transplant Clinic [address] [place] [address] Social History Tobacco Use Types [...] Basic metabolic panel (01/27/2021 11:45 AM CDT) [facility] gist Method Time Signature Glucose 156 [...] with platelets differential (01/27/2021 11:45 AM CDT) [facility] gist Method Time Signature WBC Count [...] on filedocumented in this encounter Care Teams Milling Supervisor Relationship Specialty Start Date End Date Momo Forbes PCP - General Family Practice 01/02/14 [facility] [address] [place] [address] Joseph Quintana, Assigned Nephrology 03/29/[address] [place] [address] [address] [place] [address] documented as of this encounter
--- OUTSIDE RECORDS SUMMARY | 2022-04-29 12:15 | XMS_ITS | Encounter Summary ---
:1950 Author Organization [place] Address [facility] [place] [address] Care Team Providers Name Role Phone Momo Forbes A Primary Care Provider Encounter Details Date Type Department Care Team Description 01/30/2021 Telephone [facility] Transplant Viv Torres, BOGDAN [place] [phone] Social History Tobacco Use Types Packs/Day [...] not included. Message Received: Today Beny Staton, [facility] Barbie Ugalde, RN Diego has not ordered tacro 0.5mg in over a year. ??He just ordered 1mg today but not the 0.5mg. Beny Staton [facility] Specialty Pharmacist [phone] PROPOSAL MANAGER WRITER task: Can you please call Diego to find out what dose of tacrolimus he is taking and notify coordinator if different than what is prescribed. Recommend repeat tacrolimus level for previously elevated level 7.3, goal 4-6. Thank you, Barbie Ugalde RN, BSN Solid Organ Transplant, Post Kidney and Pancreas Transplant Medical Parasitologist [phone] Telephone Encounter - Viv Torres RN - [...] transplant documented in this encounter Care Teams Wood Filler Relationship Specialty Start Date End Date Momo Forbes PCP - General Family Practice 01/02/14 [facility] [address] [place] [id number] documented as of this encounter
--- OUTSIDE RECORDS SUMMARY | 2022-04-29 12:15 | XMS_ITS | Encounter Summary ---
:1950 Author Organization [place] Address [address] [place] [address]. [place] [address] Care Team Providers Name Role Phone Momo Forbes Primary Care Provider Joseph Quintana MD Unavailable Reason for Visit Reason Onset Date Comments Refill Request 08/25/2021 Prograf 0.5mg Encounter Details Date Type Department Care Team Description 08/25/2021 Telephone [facility] [place] R[place]y, Refil l Request (Prograf Transplant Clinic 0.5mg) [address] [place] [phone] Social History Tobacco Use Types [...] Miscellaneous Notes Telephone Encounter - Meghan Mccormack [facility] - 08/25/2021 2:15 PM CST Medication/Refill approved per CPA: [facility] COLLABORATIVE AGREEMENT FOR IMMUNOSUPPRESSENT PRESCRIPTION MODIFICATION. Routing encounter to Transplant as an FYI. 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
--- OUTSIDE RECORDS SUMMARY | 2022-04-29 12:15 | XMS_ITS | Encounter Summary ---
:1950 Author Organization [place] Address [facility] [place] [address] Care Team Providers Name Role Phone Momo Forbes A Primary Care Provider Reason for Visit Reason Onset Date Comments Transplant 02/03/2021 spoke w pt and donna vallejoed annual neph appt on 03/05/21 Encounter Details Date Type Department Care Team Description 02/03/2021 Telephone [facility] Barbie Ugaldelanlynda (spoke w pt Transplant Clinic BOGDAN Nam and confirmed annual [address] neph appt on 03/05/21) [place] [address] Social History Tobacco Use Types [...] on filedocumented in this encounter Care Teams Marketing Project Specialist Relationship Specialty Start Date End Date Momo Forbes PCP - General Family Practice 01/02/14 [facility] [address] [place] [address] documented as of this encounter
--- OUTSIDE RECORDS SUMMARY | 2022-04-29 12:15 | XMS_ITS | Encounter Summary ---
:1950 Author Organization [place] Address [facility] [place] [address] Care Team Providers Name Role Phone Momo Forbes Primary Care Provider Reason for Visit Reason Onset Date Comments Transplant 01/07/2021 Encounter Details Date Type Department Care Team Description 01/07/[address] [facility] Barbie Ugaldelanlynda Transplant Clinic BOGDAN Nam [address] [place] [address] [phone] Social History Tobacco Use Types Packs/Day [...] CDT Patient Call: Transplant Lab/Orders Route to [facility] Transplant Days: 2530 When patient is less than 60 days post-transplant, route high priority Reason for Call: Annual lab reorder fax labs to [facility] lab at [phone] Labs drawn Waiting fororders Callback needed? No documented in this encounter Plan of Treatment Not on filedocumented as of this encounter Visit Diagnoses Not on filedocumented in this encounter Care Teams Cloth Dye Range Operator Relationship Specialty Start Date End Date Momo Forbes PCP - General Family Practice 01/02/14 [facility] [address] [place] [address] documented as of this encounter
--- OUTSIDE RECORDS SUMMARY | 2022-04-29 12:15 | XMS_ITS | Encounter Summary ---
:1950 Author Organization [place] Address [facility] [place] [address] Care Team Providers Name Role Phone Momo Forbes Primary Care Provider Joseph Quintana MD Unavailable Encounter Details Date Type Department Care Team Description 01/07/2021 External Order [facility] Outside, Provider Results Transplant Clinic [address] [place] [phone] Social History Tobacco Use Types Packs/Day [...] filedocumented in this encounter Care Teams Electric Distribution Checker Relationship Specialty Start Date End Date Momo Forbes PCP - General Family Practice 01/02/14 [facility] [address] [place] [address] Joseph Quintana, Assigned Nephrology 03/29/21 MD Provider [address] [place] [address] [address] [place] [address] documented as of this encounter
--- OUTSIDE RECORDS SUMMARY | 2022-04-29 12:15 | XMS_ITS | Encounter Summary ---
:1950 Author Organization [place] Address Pending sale to [facility] [place] [address] Care Team Providers Name Role Phone Momo Forbes Primary Care Provider Joseph Quintana MD Unavailable Reason for Visit Reason Onset Date Comments Transplant Lab 12/10/2021 Encounter Details Date Type Department Care Team Description 12/10/2021 Telephone [facility] Transplant Mati Recinos RN Transplant Lab Clinic [address] [place] [address] [phone] Social History Tobacco Use Types Packs/Day [...] on filedocumented in this encounter Care Teams Coremaker Bench Relationship Specialty Start Date End Date Momo Forbes PCP - General Family Practice 01/02/14 [facility] [address] [place] [address] Joseph Quintana, Assigned Nephrology 03/29/21 MD Provider 717 [facility] 353 [facility] [address] [place] [address] documented as of this encounter
--- OUTSIDE RECORDS SUMMARY | 2022-04-29 12:15 | XMS_ITS | Encounter Summary ---
:1950 Author Organization [place] Address [facility] [place] [address] Care Team Providers Name Role Phone ForbesMomo prakash A Primary Care Provider Reason for Visit Reason Onset Date Comments Transplant 07/11/2020 Encounter Details Date Type Department Care Team Description 07/11/2020 Telephone [facility] Trans[facility] BOGDAN Nam [address] [place] [phone] Social History Tobacco Use Types Packs/Day [...] Barbie Ugalde RN - 07/11/2020 2:11 PM CLEANING ASSOCIATE ISSUE: Potassium 5.2 on 07/08/20. PLAN: Assess for high dietary intake of potassium. Encouraged Diego to reduce the amount of bananas and potatoes he admitted to eating high amounts of. OUTCOME: Please have pt repeat BMP in 1 week. Orders sent NING ASSOCIATE Telephone Encounter - Barbie Ugalde RN - 07/11/2020 1:41 PM CLEANING ASSOCIATE ISSUE: Tacrolimus IR level 2.2 on 07/08/20 [...] for repeatlabs. Patient voiced understanding of plan. 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
--- OUTSIDE RECORDS SUMMARY | 2022-04-29 12:15 | XMS_ITS | Encounter Summary ---
:1950 Author Organization [place] Address [facility] [place] [address] Care Team Providers Name Role Phone Momo Forbes Primary Care Provider Joseph Quintana MD Unavailable Encounter Details Date Type Department Care Team Description 08/08/2020 External Order [facility] Outside, Provider Results Transplant Clinic [address] [place] [phone] Social History Tobacco Use Types Packs/Day [...] 08/08/2020 11:43 Results f or this AM DARKLIGHT INSPECTOR procedure are i n the results section. TACROLIMUS BY TANDEM Routine 08/08/2020 11:34 Res ults for this MASS SPECTROMETRY AM DARKLIGHT INSPECTOR procedure are in the results section. LIPID PROFILE Routine 08/08/2020 11:34 Results fo r this AM DARKLIGHT INSPECTOR procedure are i n the results section. ALT Routine 08/08/2020 11:34 Results for this AM DARKLIGHT INSPECTOR procedure are i n the results section. BASIC METABOLIC PANEL Routine 08/08/2020 11:34 Re sults for this AM DARKLIGHT INSPECTOR procedure are i n the results section. documented in this encounter Results (ABNORMAL) Hemoglobin A1c (08/08/2020 11:43 AM DARKLIGHT INSPECTOR) Analysis Performed At Patho logist Time Signature Hemoglobin A1C 10.2 (H) <=6.9 % LABDE SCAN (External) Specimen (Source) Anatomical Collection Method Collection Time Re ceived Time Location / / Volume Laterality Blood specimen 08/08/2020 11:43 (specimen) AM DARKLIGHT INSPECTOR Narrative BREEZE PFT - 08/11/2020 1:28 PM DARKLIGHT INSPECTOR Verified by Praful Huff on 2019. Patient Reported LAB - BLOOD ORDERABLES Performing Organization Address City/State/ZIP Code Phon e Number BREEZE PFT LABDE SCAN Tacrolimus level (08/08/2020 11:34 AM DARKLIGHT INSPECTOR) athologist Signature Tacrolimus(FK-5 11.7 See scan LABDE SCAN 06) (External) ng/mL Specimen (Source) Anatomical Collection Method Collection Time Re ceived Time Location / / Volume Laterality Blood specimen 08/08/2020 11:34 (specimen) AM DARKLIGHT INSPECTOR Narrative BREEZE PFT - 08/11/2020 1:28 PM DARKLIGHT INSPECTOR Verified by Praful Huff on 2019. Patient Reported LAB - BLOOD ORDERABLES Performing Organization Address City/State/ZIP Code Phon e Number BREEZE PFT LABDE SCAN (ABNORMAL) Lipid Profile (08/08/2020 11:34 AM DARKLIGHT INSPECTOR) [facility] [employer] gist Method Time Signature Cholesterol 79 (L) 90 - 200 LABDE SCAN (External) MG/DL Triglycerides 86 40 - 197 LABDE SCAN (External) MG/DL LDL-Cholesterol 29 <100 mg/dL LABDE SCAN (External) HDL Cholesterol 33 (L) >=40 mg/dL LABDE SCAN (External) Specimen (Source) Anatomical Collection Method Collection Time Re ceived Time Location / / Volume Laterality Blood specimen 08/08/2020 11:34 (specimen) AM DARKLIGHT INSPECTOR Narrative BREEZE PFT - 08/11/2020 1:28 PM DARKLIGHT INSPECTOR Verified by Praful Huff on 2019. Patient Reported LAB - BLOOD ORDERABLES Performing Organization Address City/State/ZIP Code Phon e Number BREEZE PFT LABDE SCAN ALT (08/08/2020 11:34 AM DARKLIGHT INSPECTOR) P athologist Signature ALT (External) 8 4 - 50 U/L LABDE SCAN Specimen (Source) Anatomical Collection Method Collection Time Re ceived Time Location / / Volume Laterality Blood specimen 08/08/2020 11:34 (specimen) AM DARKLIGHT INSPECTOR Narrative BREEZE PFT - 08/11/2020 1:28 PM DARKLIGHT INSPECTOR Verified by Praful Huff on 2019. Patient Reported LAB - BLOOD ORDERABLES Performing Organization Address City/State/ZIP Code Phon e Number BREEZE PFT LABDE SCAN (ABNORMAL) Basic metabolic panel (08/08/2020 11:34 AM DARKLIGHT INSPECTOR) P athologist Signature Glucose 119 (H) 60 [...] Laterality Blood specimen 08/08/2020 11:34 (specimen) AM DARKLIGHT INSPECTOR Narrative BREEZE PFT - 08/11/2020 1:28 PM DARKLIGHT INSPECTOR Verified by Praful Huff on 2019. Patient Reported LAB - BLOOD ORDERABLES Performing Organization Address City/State/ZIP Code Phon e Number BREEZE PFT LABDE SCAN documented in this encounter Visit Diagnoses Not on filedocumented in this encounter Care Teams Corporate Accountant Relationship Specialty Start Date End Date Momo Forbes PCP - General Family Practice 01/02/[address] [address] Joseph Quintana, Assigned Nephrology 03/29/21 MD Provider [address] [place] [address] documented as of this encounter
--- OUTSIDE RECORDS SUMMARY | 2022-04-29 12:15 | XMS_ITS | Encounter Summary ---
:1950 Author Organization [place] Address [facility] [place] [address] Care Team Providers Name Role Phone Momo Forbes Primary Care Provider Reason for Visit Reason Onset Date Comments Critical Values 07/08/2020 Encounter Details Date Type Department Care Team Description 07/08/2020 Telephone [facility] Cristy Chen LPN C ritical [facility] Transplant Clinic [address] [place] [address] [phone] Social History Tobacco Use Types Packs/Day [...] Barbie Ugalde RN - 07/08/2020 4:10 PM CATHETER FINISHER AND INSPECTOR Call placed to Latrell regarding the critical [...] the summer and that as a transplant 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 Per Dr. Presleynotblaze from visit in 10/09/19: # Diabetes: Poorly controlled (HbA1c >9%) Last HbA1c: 13.7%. - Management as per primary care. - Recommended all blood sugars stay below 200, with fasting between 90 and 130. ?? Latrell states that he lost his blood sugar meter but he can pick one up at [facility]. He asked how often he should be [...] level. Latrell states he returns to 08/08. ETER FINISHER AND INSPECTOR Telephone Encounter - Cristy Chen LPN - 07/08/2020 3:39 PM CST DATE: 07/08/2020 TIME OF RECEIPT FROM LAB: 3:30 PM LAB TEST: Glucose LAB VALUE: 407 RESULTS GIVEN WITH READ-BACK TO (PROVIDER): Barbie Ugalde RN TIME LAB VALUE REPORTED TO PROVIDER: 3:39 PM ETER FINISHER AND INSPECTOR documented in this encounter Plan of Treatment Not on filedocumented as of this encounter Visit Diagnoses Not on filedocumented in this encounter Care Teams Forming Department Supervisor Relationship Specialty Start Date End Date Momo Forbes PCP - General Family Practice 01/02/14 [facility] [address] [place] [address] documented as of this encounter
--- OUTSIDE RECORDS SUMMARY | 2022-04-29 12:15 | XMS_ITS | Encounter Summary ---
:1950 Author Organization [place] Address [facility]ly [facility]0 [facility] [place] [address] Care Team Providers Name Role Phone Momo Forbes Primary Care Provider Joseph Quintana MD Unavailable Encounter Details Date Type Department Care Team Description 02/02/[address] [facility] Outside, Provider Results Transplant Clinic [address] [place] [phone] Social History Tobacco Use Types Packs/Day [...] by Cassie Florian on 02/04/2021. Performed by: [facility] [address] [place], [place] ??[address] Patient Reported LABORATORY Performing Organization Address City/State/ZIP Code Phon e Number [facility] COVID-19 EXTERNAL COVID-[address] RESULTS Result Scanned into Patient Record by S[employer] Tech Refer to Result Comment/Narrative for exact performing laboratory documented in this encounter Visit Diagnoses Not on filedocumented in this encounter Care Teams Prize Coordinator Relationship Specialty Start Date End Date Momo Forbes PCP - General Family Practice 01/02/14 [facility] [address] [place] [address] Joseph Quintana, Assigned Nephrology 03/29/21 MD Provider 717 [facility] 353 [facility] [address] [place] [address] documented as of this encounter
--- OUTSIDE RECORDS SUMMARY | 2022-04-29 12:15 | XMS_ITS | Encounter Summary ---
:1950 Author Organization [place] Address [facility] [place] [address] Care Team Providers Name Role Phone Momo Forbes Primary Care Provider Joseph Quintana MD Unavailable Encounter Details Date Type Department Care Team Description 04/30/2021 External Order [facility] Outside, Provide r Results Molecular Diagnostic s [address] [place] [address] Social History Tobacco Use Types Packs/Day Years [...] Platelets & Differential (04/30/2021 11:20 AM CDT) [facility] gist Method Time Signature WBC Count [...] filedocumented in this encounter Care Teams Manager Science Relationship Specialty Start Date End Date Momo Forbes PCP - General Family Practice 01/02/14 [facility] [address] [place], [place] [id number] Joseph Quintana, Assigned Nephrology 03/29/21 MD Provider 717 [facility] 353 [facility] [address] [place] [address] documented as of this encounter
--- OUTSIDE RECORDS SUMMARY | 2022-04-29 12:15 | XMS_ITS | Encounter Summary ---
:1950 Author Organization [place] Address [facility]0 [facility] [place] [address] Care Team Providers Name Role Phone Momo Forbes Primary Care Provider Joseph Quintana MD Unavailable Encounter Details Date Type Department Care Team Description 07/08/2020 External Order [facility] Outside, Provider Results Transplant Clinic [address] [place] [phone] Social History Tobacco Use Types Packs/Day [...] 9:23 AM Results f or this RESULTS SENIOR SOLUTIONS ENGINEER procedure are i n the results section. documented in this encounter Results External Lab Results (07/08/2020 9:23 AM SENIOR SOLUTIONS ENGINEER) Analysis Performed At Patho logist Time Signature Scan Lab View Image LABDE SCAN Results (External) Comment: HLA Antibody Screen, Class I an d Class II Specimen (Source) Anatomical Collection Method Collection Time Re ceived Time Location / / Volume Laterality 07/08/2020 9:23 AM SENIOR SOLUTIONS ENGINEER Narrative [facility] - 07/16/2020 2:42 PM SENIOR SOLUTIONS ENGINEER Verified by Ruperto Pepper on 07/15/20 20. Patient Reported LABORATORY Performing Organization Address City/State/ZIP Code Phon e Number [facility] LABDE SCAN documented in this encounter Visit Diagnoses Not on filedocumented in this encounter Care Teams Coding Spec Relationship Specialty Start Date End Date Momo Forbes PCP - General Family Practice 01/02/14 [facility] [address] [place] [address] Joseph Quintana, Assigned Nephrology 03/29/21 MD Provider [address] [place] [address] [address] [place], [place] [address] documented as of this encounter
--- OUTSIDE RECORDS SUMMARY | 2022-04-29 12:15 | XMS_ITS | Encounter Summary ---
:1950 Author Organization [place] Address [facility]0 [facility] [place] [address] Care Team Providers Name Role Phone Momo Forbes Primary Care Provider Joseph Quintana MD Unavailable Reason for Visit Reason Onset Date Comments Medication Refill Refill Request 08/20/2021 Encounter Details Date Type Department Care Team Description 08/20/2021 Refill [facility] Joseph Quintana on Refill; Nephrology Clinic MD Herminio Refill Request [address] 909 [facility] 353 [facility] [address] [place], [place] [phone] Social History Tobacco Use Types Packs/Day Years [...] transplant documented in this encounter Care Teams Technical Maintenance Specialist Relationship Specialty Start Date End Date Momo Forbes PCP - General Family Practice 01/02/14 [facility] [address] [place] [address] Joseph Quintana, Assigned Nephrology 03/29/21 MD Provider [address] [place] [address] [address] [place] [address] documented as of this encounter
--- OUTSIDE RECORDS SUMMARY | 2022-04-29 12:15 | XMS_ITS | Encounter Summary ---
:1950 Author Organization [place] Address Pending sale to [facility]0 [place] [address] Care Team Providers Name Role Phone Momo Forbes Primary Care Provider Joseph Quintana MD Unavailable Encounter Details Date Type Department Care Team Description 07/08/2020 External Order [facility] Outside, Provider Results Transplant Clinic [address] [place] [phone] Social History Tobacco Use Types Packs/Day [...] 9:23 AM R esults for this DIFFERENTIAL PASTA MAKER procedure are i n the results section. TACROLIMUS BY TANDEM Routine 07/08/2020 9:23 AM R esults for this MASS SPECTROMETRY PASTA MAKER procedure are in the results section. PROTEIN RANDOM URINE Routine 07/08/2020 9:23 AM R esults for this PASTA MAKER procedure are i n the results section. HEMOGLOBIN A1C Routine 07/08/2020 9:23 AM Results for this PASTA MAKER procedure are i n the results section. HEMOGLOBIN A1C Routine 07/08/2020 9:23 AM Results for this PASTA MAKER procedure are i n the results section. BASIC METABOLIC PANEL Routine 07/08/2020 9:23 AM Results for this PASTA MAKER procedure are i n the results section. documented in this encounter Results (ABNORMAL) Protein random urine with Creat Ratio (07/08/2020 9:23 AM PASTA MAKER) Analysis Performed At Patho logist Time Signature Protein Random 73 mg/dL LABDE SCAN Urine (External) Creatinine 65 mg/dL LABDE SCAN Urine mg/dL (External) Protein Total 1.12 (H) 0 - 0.19 LABDE SCAN Ur per Cr (External) Specimen (Source) Anatomical Collection Method Collection Time Re ceived Time Location / / Volume Laterality Urine specimen 07/08/2020 9:23 AM (specimen) PASTA MAKER Narrative [facility] - 07/11/2020 11:13 AM PASTA MAKER Verified by Praful Huff on 2019. Patient Reported LAB - URINE ORDERABLES Performing Organization Address City/State/ZIP Code Phon e Number [facility] LABDE SCAN (ABNORMAL) Hemoglobin A1c (07/08/2020 9:23 AM PASTA MAKER) Analysis Performed At Patho logist Time Signature Hemoglobin A1C 12.3 (H) 0 - 5.6 % LABDE SCAN (External) Specimen (Source) Anatomical Collection Method Collection Time Re ceived Time Location / / Volume Laterality Blood specimen 07/08/2020 9:23 AM (specimen) PASTA MAKER Narrative [facility] - 07/11/2020 11:13 AM PASTA MAKER Verified by Praful Huff on 2019. Patient Reported LAB - BLOOD ORDERABLES Performing Organization Address City/State/ZIP Code Phon e Number [facility] LABDE SCAN Tacrolimus level (07/08/2020 9:23 AM PASTA MAKER) P athologist Signature Tacrolimus(FK- 2.2 See scanned LABDE SCAN 506) report ng/mL (External) Specimen (Source) Anatomical Collection Method Collection Time Re ceived Time Location / / Volume Laterality Blood specimen 07/08/2020 9:23 AM (specimen) PASTA MAKER Narrative [facility] - 07/11/2020 11:13 AM PASTA MAKER Verified by Praful Huff on 2019. Patient Reported LAB - BLOOD ORDERABLES Performing Organization Address City/State/ZIP Code Phon e Number [facility] LABDE SCAN (ABNORMAL) Hemoglobin A1c (07/08/2020 9:23 AM PASTA MAKER) Analysis Performed At [facility] logist Time Signature Hemoglobin A1C 12.3 (H) 0 - 5.6 % LABDE SCAN (External) Specimen (Source) Anatomical Collection Method Collection Time Re ceived Time Location / / Volume Laterality Blood specimen 07/08/2020 9:23 AM (specimen) PASTA MAKER Narrative [facility] - 07/09/2020 11:03 AM PASTA MAKER Verified by Andrade Barajas on 07/09/2020. Patient Reported LAB - BLOOD ORDERABLES Performing Organization Address [facility] Phon e Number [facility] LABDE SCAN (ABNORMAL) Basic metabolic panel (07/08/2020 9:23 AM PASTA MAKER) Analysis Performed At [facility] logist Time Signature Calcium 10.1 8.4 - [...] Laterality Blood specimen 07/08/2020 9:23 AM (specimen) PASTA MAKER Narrative [facility] - 07/09/2020 11:02 AM PASTA MAKER Verified by Andrade Barajas on 07/09/2020. Patient Reported LAB - BLOOD ORDERABLES Performing Organization Address City/[facility]/ZIP Code Phon e Number [facility] LABDE SCAN (ABNORMAL) CBC with platelets differential (07/08/2020 9:23 AM PASTA MAKER) [facility] gist Method Time Signature WBC Count [...] Laterality Blood specimen 07/08/2020 9:23 AM (specimen) PASTA MAKER Narrative [facility] - 07/09/2020 10:52 AM PASTA MAKER Verified by Praful Huff on 2019. Patient Reported LAB - BLOOD ORDERABLES Performing Organization Address City/State/ZIP Code Phon e Number [facility] LABDE SCAN documented in this encounter Visit Diagnoses Not on filedocumented in this encounter Care Teams Ex Chef Relationship Specialty Start Date End Date Momo Forbes PCP - General Family Practice 01/02/14 [facility] [address] [place] [address] Joseph Quintana, Assigned Nephrology 03/29/21 MD Provider [address] [place] [address] [address] [place], [place] [address] documented as of this encounter
--- OUTSIDE RECORDS SUMMARY | 2022-04-29 12:15 | XMS_ITS | Encounter Summary ---
:1950 Author Organization [place] Address [facility] [place] [address] Care Team Providers Name Role Phone Momo Forbes A Primary Care Provider Reason for Visit Reason Onset Date Comments Transplant Lab 05/28/2020 Encounter Details Date Type Department Care Team Description 05/28/2020 Telephone [facility] Barbie Ugalde Tra nsplant Lab Transplant Clinic BOGDAN Nam [address] [place] [phone] Social History Tobacco Use Types Packs/Day [...] mg/dL on 05/26/20 at 1025 collected at [facility] [phone] (Phone) CBC appears as expected Missing BMP [...] on filedocumented in this encounter Care Teams Grocery Clerk Checking Relationship Specialty Start Date End Date Momo Forbes PCP - General Family Practice 01/02/14 [facility] [address] [place] [address] documented as of this encounter
--- OUTSIDE RECORDS SUMMARY | 2022-04-29 12:15 | XMS_ITS | Encounter Summary ---
:1950 Author Organization [place] Address [address] [place] [address] Care Team Providers Name Role Phone Momo Forbes Primary Care Provider Joseph Quintana MD Unavailable Reason for Visit Reason Onset Date Comments Transplant Lab 05/04/2021 Encounter Details Date Type Department Care Team Description 05/04/2021 Telephone [facility] Transplant Krys Garcia, Transplant Lab Clinic RN [address] [place] [phone] Social History Tobacco Use Types [...] maroon colored stools. he had colonoscopy with [place] about a year ago. Appears in CareEverywhere colonoscopy was 03/20/2015. Latrell denies infectious symptoms currently but reports he had R foot surgery at [place] this last winter for diabetic foot ulcer. Infection in bottom of foot; laid up since Sep. Pretty well healed except a little speck. Follows up with Dr. Chatterjee. Will check iron panel on next labs. Orders sent. Barbie Ugalde RN, BSN Solid Organ Transplant, Post Kidney and Pancreas Transplant Director Supplier Quality [phone] Telephone Encounter - Krys Garcia RN - 05/04/2021 8:09 AM CDT ISSUE: Falling hemoglobin. documented in this encounter Plan of Treatment Not on filedocumented as of this encounter Visit Diagnoses Not on filedocumented in this encounter Care Teams Batch Still Operator Relationship Specialty Start Date End Date Momo Forbes PCP - General Family Practice 01/02/14 [facility] [address] [place] [address] Joseph Quintana, Assigned Nephrology 03/29/21 MD Provider 717 [facility] 353 [facility] [address] [place] [address] documented as of this encounter
--- OUTSIDE RECORDS SUMMARY | 2022-04-29 12:15 | XMS_ITS | Encounter Summary ---
:1950 Author Organization [place] Address [facility] [place] [address] Care Team Providers Name Role Phone Momo Forbes Primary Care Provider Joseph Quintana MD Unavailable Reason for Visit Reason Onset Date Comments Transplant 11/24/2021 Encounter Details Date Type Department Care Team Description 11/24/2021 Telephone [facility] Transplant Obdulia Peacock, industrial maintenance mechanic Clinic [address] [place] [phone] Social History Tobacco Use Types Packs/Day [...] had labs drawn ~one week ago at [facility], however results have not beenfaxed to [facility]. PLAN: call lab to have results faxed OUTCOME: New labs orders sent. Most recent bmp and cbc requested from october 2021. Tac and UPC due. Left detailed message with instructions to obtain tacrolimus trough level and UPC at earliest convenience. Asked for CB to confirm understanding. Gretta Peacock industrial maintenance mechanicInvestment Officer [phone] Telephone Encounter - Azael Rodriguez - 11/24/2021 3:32 PM CDT Patient called to touch base with the RNCC regarding some questions. documented in this encounter Plan of Treatment Not on filedocumented as of this encounter Visit Diagnoses Not on filedocumented in this encounter Care Teams Blacktop Spreader Relationship Specialty Start Date End Date Momo Forbes PCP - General Family Practice 01/02/14 [facility] [address] [place] [address] Joseph Quintana, Assigned Nephrology 03/29/21 MD Provider [address] [place] [address] [address] [place], [place] [address] documented as of this encounter
--- OUTSIDE RECORDS SUMMARY | 2022-04-29 12:15 | XMS_ITS | Encounter Summary ---
:1950 Author Organization [place] Address [facility]0 [facility] [place] [address] Care Team Providers Name Role Phone Momo Forbes Primary Care Provider Joseph Quintana MD Unavailable Reason for Visit Reason Onset Date Comments Transplant 01/21/2022 Hyperglycemia, eleva moni [facility] Encounter Details Date Type Department Care Team Description 01/21/2022 Telephone [facility] Gretta Peacock RN Trans plant Transplant Clinic (Hyperglycemia, elevated 9[address] [facility]) [place] [phone] Social History Tobacco Use Types [...] PM CDT ISSUE: trend up in [facility], hyperglycemia OUTCOME: phone call attempted X3. Will send letter via mail. Gretta Peacock RN Roll Forming Machine Operator [phone] documented in this encounter Plan of Treatment Not on filedocumented as of this encounter Visit Diagnoses Not on filedocumented in this encounter Care Teams Sprinkler Worker Relationship Specialty Start Date End Date Momo Forbes PCP - General Family Practice 01/02/14 [facility] [address] [place] [address] Joseph Quintana, Assigned Nephrology 03/29/21 MD Provider [address] [place] [address] [address] [place] [address] documented as of this encounter
--- OUTSIDE RECORDS SUMMARY | 2022-04-29 12:15 | XMS_ITS | Encounter Summary ---
:1950 Author Organization [place] Address [facility]0 [facility] [place] [address] Care Team Providers Name Role Phone Momo Forbes Primary Care Provider Joseph Quintana MD Unavailable Reason for Visit Reason Onset Date Comments Transplant 12/02/2021 Encounter Details Date Type Department Care Team Description 12/02/2021 Telephone [facility] Transplant Obdulia Peacock, astrochemist Clinic [address] [place] [address] [phone] Social History Tobacco Use Types Packs/Day [...] to confirm he received message. Gretta Peacock astrochemistManager Social Media [phone] ADDENDUM: left message for patient stating he has active orders at preferred lab. Asked to please obtain a full set of transplant labs as soon as possible. Gretta Peacock astrochemistManager Social Media [phone] documented in this encounter Plan of Treatment Not on filedocumented as of this encounter Visit Diagnoses Not on filedocumented in this encounter Care Teams Fish Hatchery Worker Relationship Specialty Start Date End Date Momo Forbes PCP - General Family Practice 01/02/14 [facility] [address] [place] [address] Joseph Quintana, Assigned Nephrology 03/29/[address] [place] [address] [address] [place] [address] documented as of this encounter
--- OUTSIDE RECORDS SUMMARY | 2022-04-29 12:15 | XMS_ITS | Encounter Summary ---
:1950 Author Organization [place] Address [address] [place] [address]. [place] [address] Care Team Providers Name Role Phone Momo Forbes Primary Care Provider Joseph Quintana MD Unavailable Reason for Visit Reason Onset Date Comments Refill Request 08/25/2021 Encounter Details Date Type Department Care Team Description 08/25/2021 Refill [facility] Transplant Debbie Calderon LPN Refill Request Clinic [address] [place] [address] [phone] Social History Tobacco Use Types Packs/Day [...] transplant documented in this encounter Care Teams Pipe Bending Machine Operator Relationship Specialty Start Date End Date Momo Forbes PCP - General Family Practice 01/02/14 [facility] [address] [place] [address] Joseph Quintana, Assigned Nephrology 8/8/21 MD Provider 7 [facility] 353 [employer] [address] [place], [place] [address] documented as of this encounter
--- OUTSIDE RECORDS SUMMARY | 2022-04-29 12:15 | XMS_ITS | Encounter Summary ---
:1950 Author Organization [place] Address [facility] [place] [address] Care Team Providers Name Role Phone ForbesMomo Primary Care Provider Reason for Visit Reason Onset Date Comments Transplant 10/23/2020 Encounter Details Date Type Department Care Team Description 10/23/2020 Telephone [facility] BOGDAN Nam [address] [place] [address] [phone] Social History Tobacco Use Types Packs/Day [...] Barbie Ugalde RN - 10/23/2020 1:10 PM PRESS OPERATOR INSTANT PRINT SHOP Latrell reports his labs were done yesterday morning at [facility]. Last night ended upat ER at [facility]. Hospital printed out copy of labs and he is worried about creatinine. Latrell states he had R foot infection that needed to be cleaned out; Had surgery last day of August onfoot at [place]. Was hospitalized 10 days before going to skilled nursing for recovery. Last night his blood sugar was dropping low into 70s and skilled nursing staff thought his BP was jumping around to much. This morning is BP 130/76, but last night 170s. Explained to Latrell that it has been a year since lastnephrology appointment and he needs to be seen for transplant follow up. He agreed but did not want to schedule at this time but will call back to schedule. Call placed to [facility] lab to fax results. Per Lab need to speak with information management department to release records or go thru [facility] to have orders faxed. Call then [...] and repeating post-transplant labs in 1-2 weeks. S OPERATOR INSTANT PRINT SHOP Telephone Encounter - Tasia Mack - 10/23/2020 10:03 AM CST Patient Call: Transplant Lab/Orders Route to [facility] Post Transplant Days: 2455 When patient is less than 60 days post-transplant, route high priority Reason for Call: Discuss lab results; which results? creatine level Callback needed? Yes Return Call Needed Same as documented in contacts section When to return call?: Greater than one day: Route standard priority S OPERATOR INSTANT PRINT SHOP documented in this encounter Plan of Treatment Not on filedocumented as of this encounter Visit Diagnoses Not on filedocumented in this encounter Care Teams Exhibit Carpenter Relationship Specialty Start Date End Date Momo Forbes PCP - General Family Practice 01/02/14 [facility] [address] [place] [address] documented as of this encounter
--- OUTSIDE RECORDS SUMMARY | 2022-04-29 12:15 | XMS_ITS | Clinical Summary ---
:1950 Author Organization [place] Address [facility] [place] [address] Care Team Providers Name Role Phone Momo [...] Problem list name updated by automated p [employer]. Provider to review Gout 12/02/2011 Peripheral neuropathy 12/02/2011 Diabetic retinopathy 12/02/2011 HTN, kidney transplant related 12/02/2011 Overview: Problem list name updated by automated p [employer]. Provider to review DM (diabetes mellitus), type 2 12/02/2011 History of tobacco use 12/02/2011 Thrombocytopenia 12/02/2011 Malaise and fatigue 12/02/2011 Overview: Problem list name updated by automated p [employer]. Provider to review Depression Resolved Problems Problem [...] Care Team Description 04/13/2022 Telephone Solid Organ Transplant Gretta Peacock RN Voicemail from Last 3 Months Immunizations Name Administration [...] Comments Blood Pressure 169/76 10/09/2019 2:35 PM MANAGER MSW Pulse 67 10/09/2019 2:35 PM MANAGER MSW Temperature 36.5 ??C (97.7 ??F) 10/17/2018 1:54 PM MANAGER MSW Respiratory Rate 18 10/25/2016 4:39 PM MANAGER MSW Oxygen Saturation 95% 10/09/2019 2:35 PM MANAGER MSW Inhaled Oxygen Concentration - - Weight 132.5 kg (292 lb 1.6 oz) 10/09/2019 2:35 PM MANAGER MSW Height 182.9 cm (6') 10/10/2017 2:25 PM MANAGER MSW Body Mass Index 39.62 10/10/2017 2:25 PM MANAGER MSW Plan of Treatment Health Maintenance Due Date [...] this topic Medical Devices Explanted Type Area Sweater Designer Device Shelf Model / Identifier Expiration Serial / Date Lot Stent Ureteral Childress Renal Transplant [id number] Right: [employer] 11/19/2016 [id number] / Implanted: Qty: 1 on 02/02/2014 by Migel Viveros MD at [facility] Ureter [employer] / Explanted: Qty: 1 on 04/01/2014 by Celina Helton MD at [facility] [id number] Insurance Payer Benefit Plan / Subscriber ID Effective Phone Address T ype Group Dates MEDICARE MEDICARE [id number] 2011-Prese [phone] ATTN CLAI [place] Medicare nt 40 [address] [place] [address] BCBS BCBS OF [place] [id number] 2016-Prese [phone] [address] [address] Indemnity nt 00 [place] [address] Ian (Home) [facility] [address] Diego Guthrie Personal/Family Self 1950 [address] (Home) [place] [address] Advance Directives For more information, please contact: [phone] Latest Code Status on File Code Status Date Activated Date Inactivated Comments Full Code 04/01/2014 9:03 AM Full Code 02/08/2014 7:12 AM 04/01/2014 9:03 AM Full Code 02/03/2014 12:56 AM 02/08/2014 7:12 AM Care Teams Bed Placement Coordinator Relationship Specialty Start Date End Date Momo Forbes PCP - General Family Practice 01/02/14 [facility] [address] [place] [address] Joseph Quintana, Assigned Nephrology 03/29/21 MD Provider 717 [facility] 353 [facility] [address] [place] [address]
--- OUTSIDE RECORDS SUMMARY | 2022-04-29 12:15 | XMS_ITS | Encounter Summary ---
:1950 Author Organization [place] Address [address] [place] [address]. [place] [address] Care Team Providers Name Role Phone Momo [...] filedocumented in this encounter Care Teams Medical Lab Assistant Relationship Specialty Start Date End Date Momo Forbes PCP - General Family Practice 01/02/14 [facility] [address] [place] [address] documented as of this encounter
--- OUTSIDE RECORDS SUMMARY | 2022-04-29 12:15 | XMS_ITS | Encounter Summary ---
:1950 Author Organization [place] Address [address] [place] [address] Care Team Providers Name Role Phone Momo Forbes Primary Care Provider Joseph Quintana MD Unavailable Encounter Details Date Type Department Care Team Description 12/09/2021 External Order [facility] Outside, Provide r Results Molecular Diagnostic s [address] [place] [address] Social History Tobacco Use Types Packs/Day Years [...] on filedocumented in this encounter Care Teams School Business Administrator Relationship Specialty Start Date End Date Momo Forbes PCP - General Family Practice 01/02/14 [facility] [address] [place] [address] Joseph Quintana, Assigned Nephrology 03/29/21 Provider 717 [facility] 353 [facility] [address] [place] [address] documented as of this encounter
--- OUTSIDE RECORDS SUMMARY | 2022-04-29 12:16 | XMS_ITS | Encounter Summary ---
:1950 Author Organization [place] Address [facility] [place] [address] Care Team Providers Name Role Phone Momo Forbes A Primary Care Provider Reason for Visit Reason Onset Date Comments Transplant Lab 01/29/2020 overdue labs Encounter Details Date Type Department Care Team Description 01/29/2020 Telephone [facility] Barbie Ugalde Tra nsplant Lab Transplant Clinic BOGDAN Nam (overdue labs) [address] [place] [phone] Social History Tobacco Use Types Packs/Day [...] a kit for blood work sent to [facility] as requested. Explained kits are no longer being used for drug levels but new orders could be sent to lab if needed. [facility] [phone] (Phone) [facility] has annual order on file sent September 2019 and can fax [facility] 2 weeks [facility]. [facility] who meryl Hemoglobin A1C and BMP [...] on filedocumented in this encounter Care Teams Environmental Aid Relationship Specialty Start Date End Date Momo Forbes PCP - General Family Practice 01/02/14 [facility] [address] [place] [address] documented as of this encounter
--- OUTSIDE RECORDS SUMMARY | 2022-04-29 12:16 | XMS_ITS | Encounter Summary ---
:1950 Author Organization [place] Address [facility] [place] [address] Care Team Providers Name Role Phone Forbes, Ton Primary Care Provider Reason for Visit Reason Onset Date Comments Kidney Transplant 05/20/2019 Encounter Details Date Type Department Care Team Description 05/20/2019 Telephone [facility] Estefania Nguyen Transplant Transplant Clinic Amanda Fletcher RN [address] [place] [phone] Social History Tobacco Use Types Packs/Day [...] not charted as 12 hour trough. ?? Plan/CONTINUOUS IMPROVEMENT INTERN task: ?? Please confirm timing of lab draw. If this was not a 12 hour level, please repeat labs in May and ensure 12 hour trough level with lab draw. Enter lab orders if needed Telephone Encounter - Amanda Nguyen RN - 05/20/2019 5:38 PM CDT Issue: Tac 4.6 - however this is not charted as 12 hour trough. Plan/CONTINUOUS IMPROVEMENT INTERN task: Please confirm timing of lab draw. If this was not a 12 hour level, please repeat labs in May and ensure 12 hour trough level with lab draw. Enter lab orders if needed. documented in this encounter Plan of Treatment Not on filedocumented as of this encounter Visit Diagnoses Not on filedocumented in this encounter Care Teams Electric Solderer Relationship Specialty Start Date End Date Momo Forbes PCP - General Family Practice 01/02/14 [facility] [address] [place] [address] documented as of this encounter
--- OUTSIDE RECORDS SUMMARY | 2022-04-29 12:16 | XMS_ITS | Encounter Summary ---
:1950 Author Organization [place] Address [facility] [place] [address] Care Team Providers Name Role Phone Forbes, Ton Primary Care Provider Reason for Visit Reason Onset Date Comments Transplant Lab 05/16/2019 Encounter Details Date Type Department Care Team Description 05/16/2019 Telephone [facility] Sudhir Fields Trans plant Lab Transplant Clinic Amanda Fletcher RN [address] [phone] Social History Tobacco Use Types Packs/Day [...] CDT Provider Call: Transplant Lab/Orders Route to EXCELSIOR MACHINE TENDER Post Transplant Days: 1929 When patient is less than 60 days post-transplant, route high priority Reason for Call: updated lab order faxed Liver patients reporting abnormal lab results: Route to RN and Page Document lab facility information when provider is calling about annual lab orders. Delete facility wildcards when not needed. Facility Name: [facility] Location: [place], [place] Outside Facility Callback needed? If needed documented in this encounter Plan of Treatment Not on filedocumented as of this encounter Visit Diagnoses Diagnosis Kidney replaced by transplant - Primary Aftercare following organ transplant Encounter for long-term current use of m edication documented in this encounter Care Teams Cutter Barrel Drum Relationship Specialty Start Date End Date Momo Forbes PCP - General Family Practice 01/02/14 [facility] [address] [place] [address] documented as of this encounter
--- OUTSIDE RECORDS SUMMARY | 2022-04-29 12:16 | XMS_ITS | Encounter Summary ---
:1950 Author Organization [place] Address [facility] [place] [address] Care Team Providers Name Role Phone Momo Forbes A Primary Care Provider Reason for Visit Reason Onset Date Comments Kidney Transplant 07/12/2019 Encounter Details Date Type Department Care Team Description 07/12/[address] [facility] Estefania Nguyen Transplant Transplant Clinic Amanda Fletcher RN [address] [place] [address] Social History Tobacco Use Types [...] left with instruction listed below. Order placed RATOR SWITCHBOARD OPERATOR Telephone Encounter - Amanda Nguyen RN - 07/12/2019 12:23 PM GENERATOR SWITCHBOARD OPERATOR Clinic appt 07/17 at 4:45 Plan: Called patient to remind him of appt date/time. Asked that he complete labs prior to appt. RUBBER THREAD SPOOLER task: Please send one time lab order to complete all tx labs within the next week. RATOR SWITCHBOARD OPERATOR documented in this encounter Plan of Treatment Not on filedocumented as of this encounter Visit Diagnoses Not on filedocumented in this encounter Care Teams Ripsaw Grader Relationship Specialty Start Date End Date Momo Forbes PCP - General Family Practice 01/02/14 [facility] [address] [place] [address] documented as of this encounter
--- OUTSIDE RECORDS SUMMARY | 2022-04-29 12:16 | XMS_ITS | Encounter Summary ---
:1950 Author Organization [place] Address [address] [place] [address]. [place] [address] Care Team Providers Name Role Phone Momo [...] filedocumented in this encounter Care Teams Technical Sales Director Relationship Specialty Start Date End Date Momo Forbes PCP - General Family Practice 01/02/14 [facility] [address] [place] [address] documented as of this encounter
--- OUTSIDE RECORDS SUMMARY | 2022-04-29 12:16 | XMS_ITS | Encounter Summary ---
:1950 Author Organization [place] Address [facility] [address] Care Team Providers Name Role Phone Momo Forbes Primary Care Provider Reason for Visit Reason Onset Date Comments Refill Request 03/18/2020 Mycophenolate and Pr ograf 1mg Encounter Details Date Type Department Care Team Description 03/18/2020 Refill [facility] Joseph Quintana Refill R equest Nephrology Clinic MD Herminio (Mycophenolate and [place] [address] [place] [address] SE Prograf 1mg) 909 [facility] 353 [facility] [address] [place], [place] [phone] Social History Tobacco Use Types Packs/Day Years [...] transplant documented in this encounter Care Teams Broaching Machine Operator Relationship Specialty Start Date End Date Moom Forbes PCP - General Family Practice 01/02/14 [facility] [address] [place] [address] documented as of this encounter
--- OUTSIDE RECORDS SUMMARY | 2022-04-29 12:16 | XMS_ITS | Encounter Summary ---
:1950 Author Organization [place] Address 2450 [facility] [place] [address] Care Team Providers Name Role Phone Momo Forbes Primary Care Provider Encounter Details Date Type Department Care Team Description 05/16/2019 Orders Only [facility] Loy Morales Aft ercare following organ transplant; [facility] Kidney replaced by transplant; Laboratory 420 [facility] Encounter for long-term curr ent use of medication [address] [place] [phone] (Wo rk) Social History Tobacco Use Types [...] (ABNORMAL) Tacrolimus level (05/16/2019 3:43 PM CDT) [facility] gist Method Time Signature Tacrolimus Last 05/1605/18/2019 [facility] Dose 1230AM 11:28 AM CDT [facility] Tacrolimus 4.6 (L) 5.0 - 05/18/2019 [facility] 15.0 ug/L 4:11 PM CDT [facility] Comment: Tacrolimus Reference Range [...] its performa nce characteristics determined by the [facility], ??Special [...] Phon e Number [facility] [address] documented in this encounter Visit Diagnoses Diagnosis Aftercare following organ transplant Kidney replaced by transplant Encounter for long-term current use of m edication documented in this encounter Care Teams Garnett Machine Operator Helper Relationship Specialty Start Date End Date Momo Forbes PCP - General Family Practice 01/02/14 [facility] [address] [place] [address] documented as of this encounter
--- OUTSIDE RECORDS SUMMARY | 2022-04-29 12:16 | XMS_ITS | Encounter Summary ---
:1950 Author Organization [place] Address [facility] [place] [address] Care Team Providers Name Role Phone Momo Forbes Primary Care Provider Joseph Quintana MD Unavailable Encounter Details Date Type Department Care Team Description 05/26/2020 External Order M [facility] Outside, Provider Results Transplant Clinic [address] [place] [phone] Social History Tobacco Use Types Packs/Day [...] on filedocumented in this encounter Care Teams Hydrogen Treater Relationship Specialty Start Date End Date Momo Forbes PCP - General Family Practice 01/02/14 [facility] [address] [place] [address] Joseph Quintana, Assigned Nephrology 03/29/21 MD Provider 7 [facility] 353 [facility] [address] [place] [address] documented as of this encounter
--- OUTSIDE RECORDS SUMMARY | 2022-04-29 12:16 | XMS_ITS | Encounter Summary ---
:1950 Author Organization [place] Address [address] [place] [address]. [place] [address] Care Team Providers Name Role Phone Momo [...] on filedocumented in this encounter Care Teams Coat Ironer Hand Relationship Specialty Start Date End Date Momo Forbes PCP - General Family Practice 01/02/14 [facility] [address] [place] [address] documented as of this encounter
--- OUTSIDE RECORDS SUMMARY | 2022-04-29 12:16 | XMS_ITS | Encounter Summary ---
:1950 Author Organization [place] Address [address] [place] [address]. [place] [address] Care Team Providers Name Role Phone Momo Forbes Primary Care Provider Encounter Details Date Type Department Care Team Description 09/25/2019 Medical Correspondence [facility] Scan, PATIENT BLOOD Health Info Mgmt Non-Provider GLUCOSE SIVAKUMAR ALLAN Srvcs [address] [place] [phone] Social History Tobacco Use Types Packs/Day [...] on filedocumented in this encounter Care Teams Court Recorder Relationship Specialty Start Date End Date Momo Forbes PCP - General Family Practice 01/02/14 [facility] [address] [place] [address] documented as of this encounter
--- OUTSIDE RECORDS SUMMARY | 2022-04-29 12:16 | XMS_ITS | Encounter Summary ---
:1950 Author Organization [place] Address [address] [place] [address] Care Team Providers Name Role Phone Forbes, Ton Primary Care Provider Reason for Visit Reason Comments RECHECK Post kid tx f/u Encounter Details Date Type Department Care Team Description 10/09/2019 [facility] [address] [facility] [address] [place] [address] Kidney transplanted (Primary Dx); Nephrology Clinic , Kidney/Pancreas Recipient Need for influenza vaccination; [place] HTN, kidney transplant relat ed; 909 [facility] Immunosupp ression (H); SE Skin cancer screening; [place], [place] Hypovitamino sis [place] [phone] Social History [...] Comments Blood Pressure 169/76 10/09/2019 2:35 PM PLUG ASSEMBLER Pulse 67 10/09/2019 2:35 PM PLUG ASSEMBLER Temperature - - Respiratory Rate - - Oxygen Saturation 95% 10/09/2019 2:35 PM PLUG ASSEMBLER Inhaled Oxygen Concentration - - Weight 132.5 kg (292 lb 1.6 oz) 10/09/2019 2:35 PM PLUG ASSEMBLER Height - - Body Mass Index 39.62 10/10/2017 2:25 PM PLUG ASSEMBLER documented in this encounter Progress Notes Shiva [...] being entered into the official medical record. ASSEMBLER documented in this encounter Nursing Notes Josseline Recinos RN - 10/09/2019 2:45 PM CST Diego Sosa Siricyndie was seen today in clinic by this sba underwriter. Medications, lab orders, lab frequency,and necessary follow up discussed with patient. Patient was provided with a copy of the current lab letter. Patient voiced understanding and agreement of education and plan. Josseline Recinos RN ASSEMBLER Jeanette Finley CMA - 10/09/2019 2:45 PM CST Chief Complaint Patient presents with ??? RECHECK Post kid tx f/u Blood pressure (!) 169/76, pulse 67, weight 132.5 kg (292 lb 1.6 oz), SpO2 95 %. Jeanette Finley CMA ASSEMBLER documented in this encounter Plan of [...] deficiency documented in this encounter Care Teams Pipe Threading Machine Operator Relationship Specialty Start Date End Date Momo Forbes PCP - General Family Practice 01/02/14 [facility] [address] [place] [address] documented as of this encounter
--- OUTSIDE RECORDS SUMMARY | 2022-04-29 12:16 | XMS_ITS | Encounter Summary ---
:1950 Author Organization [place] Address [address] [place] [address]. [place] [address] Care Team Providers Name Role Phone Momo Forbes Primary Care Provider Reason for Visit Reason Onset Date Comments Refill Request 02/04/2020 prograf, mycophenola te Encounter Details Date Type Department Care Team Description 02/04/2020 Refill [facility], Joseph Refill R equest Transplant Clinic MD Herminio (prograf, 909 [facility] SE 717 [facility] mycophenolate) [facility] 353 [facility] [phone] [place] [address] (Wo rk) Social History Tobacco [...] transplant documented in this encounter Care Teams Linoleum Installer Relationship Specialty Start Date End Date Momo Forbes PCP - General Family Practice 01/02/14 [facility] [address] [place] [address] documented as of this encounter
--- OUTSIDE RECORDS SUMMARY | 2022-04-29 12:16 | XMS_ITS | Encounter Summary ---
:1950 Author Organization [place] Address [address] [place] [address]. [place] [address] Care Team Providers Name Role Phone Momo [...] on filedocumented in this encounter Care Teams Document Restorer Relationship Specialty Start Date End Date Momo Forbes PCP - General Family Practice 01/02/14 [facility] [address] [place] [address] documented as of this encounter
--- OUTSIDE RECORDS SUMMARY | 2022-04-29 12:16 | XMS_ITS | Encounter Summary ---
:1950 Author Organization [place] Address [facility] [place] [address] Care Team Providers Name Role Phone Momo Forbes Primary Care Provider Joseph Quintana MD Unavailable Encounter Details Date Type Department Care Team Description 05/16/2019 External Order [facility] Nurse, Txc Afterca re following organ transplant; Results Transplant Clinic Kidney replaced by transplan t; [address] [place] [address] Encounter for long-term [place] [address] Social History Tobacco Use Types [...] 3:43 PM CDT) Analysis Performed At [facility] Time Signature Sodium 136 135 - 145 [...] Estimated >60 >60 LABDE SCAN (if ml/min/1.7 Micronesian) 3m2 (External) GFR Estimated 56 (L) >60 [...] 3:36 PM CDT) Analysis Performed At [facility] Time Signature Protein Random 41 (H) <=14 [...] edication documented in this encounter Care Teams Kettle Skimmer Relationship Specialty Start Date End Date Momo Forbes PCP - General Family Practice 01/02/14 [facility] [address] [place] [address] Joseph Quintana, Assigned Nephrology 03/29/21 Provider 717 [facility] 353 [facility] [address] [place] [address] documented as of this encounter
--- OUTSIDE RECORDS SUMMARY | 2022-04-29 12:16 | XMS_ITS | Encounter Summary ---
:1950 Author Organization [place] Address [facility] [place] [address] Care Team Providers Name Role Phone Momo Forbes A Primary Care Provider Reason for Visit Reason Comments Clinic Care Coordination - Follow-up Encounter Details Date Type Department Care Team Description 10/25/2019 Care Coordination [facility] Sejal Rodriguez Care Nephrology Clinic BOGDAN Llanos Coordination - [place] [phone] Follow-up 9 [facility] (Work) [place] [address] Social History Tobacco Use Types [...] back (follow up BP). Romi Rodriguez RN KE WORKER Romi Rodriguez RN - 10/25/2019 10:15 AM [...] further questions or concerns. Romi Rodriguez, BOGDAN KE WORKER documented in this encounter Plan of Treatment Not on filedocumented as of this encounter Visit Diagnoses Not on filedocumented in this encounter Care Teams Lcpc Relationship Specialty Start Date End Date Momo Forbes PCP - General Family Practice 01/02/14 [facility] [address] [place] [address] documented as of this encounter
--- OUTSIDE RECORDS SUMMARY | 2022-04-29 12:16 | XMS_ITS | Encounter Summary ---
:1950 Author Organization [place] Address [address] [place] [address]. [place] [address] Care Team Providers Name Role Phone Momo Forbes Primary Care Provider Encounter Details Date Type Department Care Team Description 09/26/2019 Medical Correspondence [facility] Scan, BLOOD GLUCOSE LOG Health Info Mgmt Non-Provider Srvcs [address] [place] [phone] Social History Tobacco Use Types Packs/Day [...] on filedocumented in this encounter Care Teams Foxpro Developer Relationship Specialty Start Date End Date Momo Forbes PCP - General Family Practice 01/02/14 [facility] [address] [place] [address] documented as of this encounter
--- OUTSIDE RECORDS SUMMARY | 2022-04-29 12:16 | XMS_ITS | Encounter Summary ---
:1950 Author Organization [place] Address [facility] [place] [address] Care Team Providers Name Role Phone ForbesMomo Primary Care Provider Reason for Visit Reason Comments Clinic Care Coordination - Follow-up Encounter Details Date Type Department Care Team Description 11/16/2019 Care Coordination [facility] Sejal Rodriguez Care Nephrology Clinic BOGDAN Llanos Coordination - [place] [phone] Follow-up [address] [place] [address] (Work) [place] [address] Social History Tobacco Use Types [...] clinic with any further questions or concerns. Rmoi Rodriguez, RN documented in this encounter Plan of Treatment Not on filedocumented as of this encounter Visit Diagnoses Not on filedocumented in this encounter Care Teams Stud Beef Cattle Farmer Relationship Specialty Start Date End Date Momo Forbes PCP - General Family Practice 01/02/14 [facility] [address] [place] [address] documented as of this encounter
--- OUTSIDE RECORDS SUMMARY | 2022-04-29 12:16 | XMS_ITS | Encounter Summary ---
:1950 Author Organization [place] Address [facility] [place] [address] Care Team Providers Name Role Phone Momo Forbes Primary Care Provider Encounter Details Date Type Department Care Team Description 10/09/2019 Orders Only [facility] Transplant Mati Recinos RN Clinic [address] [place], [place] [phone] Social History Tobacco Use Types Packs/Day [...] [facility] T [phone] F [phone] ASSISTANT documented in this encounter Plan of Treatment Not on filedocumented as of this encounter Visit Diagnoses Not on filedocumented in this encounter Care Teams Medical Physiologist Relationship Specialty Start Date End Date Forbes, Ton PCP - General Family Practice 01/02/14 [facility] 1999 [place] [address] documented as of this encounter
--- OUTSIDE RECORDS SUMMARY | 2022-04-29 12:16 | XMS_ITS | Encounter Summary ---
:1950 Author Organization [place] Address [facility] [place] [address] Care Team Providers Name Role Phone Momo Forbes Primary Care Provider Reason for Visit Reason Onset Date Comments Refill Request 05/07/2020 Mycophenplate and Pr ograf Encounter Details Date Type Department Care Team Description 05/07/2020 Refill [facility] Mariano, Joseph Refill R equest Nephrology Clinic MD Herminio (Mycophenplate and [address] Prograf) [address] [place] [phone] Social History Tobacco Use Types Packs/Day Years [...] transplant documented in this encounter Care Teams Electrolysist Relationship Specialty Start Date End Date Momo Forbes PCP - General Family Practice 01/02/14 [facility] 1999 [place] [address] documented as of this encounter
--- OUTSIDE RECORDS SUMMARY | 2022-04-29 12:16 | XMS_ITS | Encounter Summary ---
:1950 Author Organization [place] Address [facility] [place] [address] Care Team Providers Name Role Phone Momo Forbes Primary Care Provider Joseph Quintana MD Unavailable Encounter Details Date Type Department Care Team Description 05/26/2020 External Order [facility] Outside, Provider Results Transplant Clinic [address] [place] [phone] Social History Tobacco Use Types Packs/Day [...] with platelets differential (05/26/2020 10:25 AM CDT) [facility] Method Time Signature WBC Count 4.49 (L) [...] on filedocumented in this encounter Care Teams Heavy Forger Relationship Specialty Start Date End Date Momo Forbes PCP - General Family Practice 01/02/14 [facility] 1999 [place] [address] Joseph Quintana, Assigned Nephrology 03/29/21 MD Provider 717 [facility] 353 [facility] 1932 [place], [place] [address] documented as of this encounter
--- OUTSIDE RECORDS SUMMARY | 2022-04-29 12:17 | XMS_ITS | Encounter Summary ---
:1950 Author Organization [place] Address [address] [place] [address]. [place] [address] Care Team Providers Name Role Phone Momo Forbes Primary Care Provider Encounter Details Date Type Department Care Team Description 05/17/2018 Orders Only [facility] Alana Calderon Afterc are following Transplant gift manager organ transplant [address] [place] [address] (Primary Dx) [place] [address] Social History Tobacco Use Types [...] rimary documented in this encounter Care Teams Soybean Specialties Cook Relationship Specialty Start Date End Date Momo Forbes PCP - General Family Practice 01/02/14 [facility] [place] [facility] [address] [place] [address] documented as of this encounter
--- OUTSIDE RECORDS SUMMARY | 2022-04-29 12:17 | XMS_ITS | Encounter Summary ---
:1950 Author Organization [place] Address [address] [place] [address]. [place] [address] Care Team Providers Name Role Phone Momo Forbes Primary Care Provider Reason for Visit Reason Onset Date Comments Refill Request 02/28/2019 Encounter Details Date Type Department Care Team Description 02/28/2019 Refill [facility] Shiva Presley MD Refill Request [facility]ph[facility] [place] [address] [phone] Social History Tobacco Use Types Packs/Day Years [...] documented in this encounter Care Teams Supervisor Contingents Relationship Specialty Start Date End Date Momo Forbes PCP - General Family Practice 01/02/14 [facility] 1999 [place], [place] [id number] documented as of this encounter
--- OUTSIDE RECORDS SUMMARY | 2022-04-29 12:17 | XMS_ITS | Encounter Summary ---
:1950 Author Organization [place] Address [address] [facility] [place] [address] Care Team Providers Name Role Phone Momo Forbes A Primary Care Provider Reason for Visit Reason Onset Date Comments Appointment 08/24/2018 Encounter Details Date Type Department Care Team Description 08/24/2018 Telephone [facility] Nephrology Romi Garcia, RN Appointment [facility] [phone] ([facility]) [address] [place] [address] [phone] Social History Tobacco Use Types Packs/Day [...] patient to call back. Romi Rodriguez RN R BINDER Telephone Encounter - Romi Rodriguez RN - 08/24/2018 1:54 PM CST Left voicemail for patient to call back (follow up from last transplant appointment). Romi Rodriguez, RN R BINDER documented in this encounter Plan of Treatment Not on filedocumented as of this encounter Visit Diagnoses Not on filedocumented in this encounter Care Teams Distillery Worker General Relationship Specialty Start Date End Date Momo Forbes PCP - General Family Practice 01/02/[address] [address] documented as of this encounter
--- OUTSIDE RECORDS SUMMARY | 2022-04-29 12:17 | XMS_ITS | Encounter Summary ---
:1950 Author Organization [place] Address [facility] [place] [address] Care Team Providers Name Role Phone ForbesMomo santiago A Primary Care Provider Encounter Details Date Type Department Care Team Description 08/18/2018 Documentation Only [facility] Josseline Recinos, Transplant Clinic RN 909 [place] [address] Social History Tobacco Use Types [...] letter updated: 08/17/18 Lab orders faxed to: [facility] [phone] (Phone) Lab orders up to date in [facility]. SQL DEVELOPER documented in this encounter Plan of Treatment Not on filedocumented as of this encounter Visit Diagnoses Not on filedocumented in this encounter Care Teams Attendance Officer Relationship Specialty Start Date End Date Momo Forbes PCP - General Family Practice 01/02/14 [facility] 1999 [place] [address] documented as of this encounter
--- OUTSIDE RECORDS SUMMARY | 2022-04-29 12:17 | XMS_ITS | Encounter Summary ---
:1950 Author Organization [place] Address [address] [place] [address]. [place] [address] Care Team Providers Name Role Phone Momo Forbes Primary Care Provider Reason for Visit Reason Onset Date Comments Transplant Pharmacy Medication Review 01/19/2018 Encounter Details Date Type Department Care Team Description 01/19/2018 Telephone [facility] Beny Staton, Transplant Pharmacy [address] [facility] [place] [place] [address] [facility] [phone] PHARMACY [place], [place] [address] Social History Tobacco Use Types Packs/Day Years [...] on filedocumented in this encounter Care Teams Oven Heater Relationship Specialty Start Date End Date Momo Forbes PCP - General Family Practice 01/02/14 [facility] 1999 [place] [address] documented as of this encounter
--- OUTSIDE RECORDS SUMMARY | 2022-04-29 12:17 | XMS_ITS | Encounter Summary ---
:1950 Author Organization [place] Address [facility] [place] [address] Care Team Providers Name Role Phone Momo Forbes Primary Care Provider Joseph Quintana MD Unavailable Encounter Details Date Type Department Care Team Description 05/15/2018 External Order Results [facility] Nurse, [facility] Transplant Clinic 9 [place] [address] Social History Tobacco Use Types [...] 54 (L) >60 LABDE SCAN (if ml/min/1.7 Egyptian) 3m2 (External) GFR Estimated 44 (L) >60 [...] on filedocumented in this encounter Care Teams Personnel Recruiter Relationship Specialty Start Date End Date Momo Forbes PCP - General Family Practice 01/02/14 [facility] [address] [place] [address] Joseph Quintana, Assigned Nephrology 03/29/21 Provider 7 [facility] 353 [facility] 1932 [place], [place] [id number] documented as of this encounter
--- OUTSIDE RECORDS SUMMARY | 2022-04-29 12:17 | XMS_ITS | Encounter Summary ---
:1950 Author Organization [place] Address [address] [place] [address]. [place] [address] Care Team Providers Name Role Phone Momo Forbes Primary Care Provider Reason for Visit Reason Onset Date Comments Refill Request 01/17/2019 Encounter Details Date Type Department Care Team Description 01/17/2019 Refill [facility] Joseph Quintana MD Refill Request Transplant Clinic [address] [place] [phone] [place] [address] (Wo rk) Social History Tobacco [...] transplant documented in this encounter Care Teams Instructor Bus Trolley And Taxi Relationship Specialty Start Date End Date Momo Forbes PCP - General Family Practice 01/02/14 [facility] 1999 [place] [address] documented as of this encounter
--- OUTSIDE RECORDS SUMMARY | 2022-04-29 12:17 | XMS_ITS | Encounter Summary ---
:1950 Author Organization [place] Address [address] [place] [address] Care Team Providers Name Role Phone ForbesMomo prakash A Primary Care Provider Reason for Visit Reason Comments RECHECK annual Follow up Kidney TX Encounter Details Date Type Department Care Team Description 10/17/2018 Office Visit [facility] Shiva Presley MD [facility] [facility] [address] [place] [address] Type 2 diabetes mellitus with other spec ified complication, with long-term current use of insulin (H) (Primary Dx); Nephrology Clinic [facility] Kidney/Pancreas Recipient Kidney replaced by transplant; [place] [facility] following organ tr ansplant; [address] Immunosupp ression (H); SE HTN, kidney transplant relat ed; [place], [place] Severe obesi ty in adult, BMI [...] Comments Blood Pressure 162/77 10/17/2018 1:54 PM BROADCAST NEWS PRODUCER Pulse 60 10/17/2018 1:54 PM BROADCAST NEWS PRODUCER Temperature 36.5 ??C (97.7 ??F) 10/17/2018 1:54 PM BROADCAST NEWS PRODUCER Respiratory Rate - - Oxygen Saturation 94% 10/17/2018 1:54 PM BROADCAST NEWS PRODUCER Inhaled Oxygen Concentration - - Weight 133.7 kg (294 lb 12.8 oz) 10/17/2018 1:54 PM BROADCAST NEWS PRODUCER Height - - Body Mass Index 39.98 10/10/2017 2:25 PM BROADCAST NEWS PRODUCER documented in this encounter Progress Notes Joseph [...] then 50%0. Also offered to refer to rn gyn. # Mineral Bone Disorder: - Secondary renal [...] PREVIOUSLY REPORTED 1999 MPACID 1.39 MPAG 80.2 DCAST NEWS PRODUCER documented in this encounter Nursing Notes Martina [...] kg (294 lb 12.8 oz). Martina Boyle DCAST NEWS PRODUCER documented in this encounter Plan of Treatment [...] >40 documented in this encounter Care Teams Glove Turner Relationship Specialty Start Date End Date Momo Forbes PCP - General [facility] Practice 01/02/14 [facility] 1999 [place] [address] documented as of this encounter
--- OUTSIDE RECORDS SUMMARY | 2022-04-29 12:17 | XMS_ITS | Encounter Summary ---
:1950 Author Organization [place] Address [address] [place] [address]. [place] [address] Care Team Providers Name Role Phone Momo Forbes Primary Care Provider Reason for Visit Reason Onset Date Comments Erroneous encounter-disregard 05/17/2018 Encounter Details Date Type Department Care Team Description 05/17/[address] [facility] [place], Erroneous Transplant Clinic BOGDAN Lopes encounter-disregard [address] [place] [phone] Social History Tobacco Use Types Packs/Day [...] on filedocumented in this encounter Care Teams Fat Pressroom Worker Relationship Specialty Start Date End Date Momo Forbes PCP - General Family Practice 01/02/14 [facility] 1999 [place] [address] documented as of this encounter
--- OUTSIDE RECORDS SUMMARY | 2022-04-29 12:17 | XMS_ITS | Encounter Summary ---
:1950 Author Organization [place] Address [address] [place] [address] Care Team Providers Name Role Phone Momo Forbes Primary Care Provider Encounter Details Date Type Department Care Team Description 05/15/2018 Orders Only M [facility] Loy Morales MD [facility] [address] [facility] [address] [place] [address] [place] [address] [phone] Social History Tobacco Use Types Packs/Day Years [...] (ABNORMAL) Tacrolimus level (05/15/2018 2:13 PM CDT) [facility] gist Method Time Signature Tacrolimus Not Provided 05/18/2018 [facility] Last Dose 7:24 AM CDT [facility] Tacrolimus 3.4 (L) 5.0 - 05/18/2018 [facility] Level 15.0 ug/L 7:24 AM CDT [facility] Comment: Tacrolimus Reference [...] its performa nce characteristics determined by the [facility], ??Special Chemistry Laboratory. It has not [...] LAB - BLOOD ORDERABLES Performing Organization Address [facility]/ZIP Code Phon e Number [facility] [address] Cyclosporine (05/15/2018 2:13 PM CDT) Component Value Ref Test Analysis Performed At [facility] Range Method Time Signature Cyclosporine CANCELLED BY 05/17/2018 [facility] Dose BOGDAN KOLB 1:00 PM CDT [facility] E[facility]VERRY ON [facility] 05/17/18 AT CAMP[facility] 1300 BY [place] Comment: CORRECTED ON 05/17 AT 1300: PRE VIOUSLY REPORTED [id number] Cyclosporine Level CANCELLED BY RN 50 - 400 05/17/2018 1:00 [facility] [place] ug/L PM CDT [facility] ETCHEVERRY ON [facility] 05/17/18 AT 1300 BY [place] Comment: CORRECTED ON 05/17 AT 1300: PRE VIOUSLY REPORTED <25 Specimen Anatomical Collection Method Collection Time Receive d Time (Source) Location / / Volume Laterality 05/15/2018 2:13 PM 8 9:59 CDT AM CDT Orlando Richey MD LAB - BLOOD ORDERABLES Performing Organization Address City/[facility]/ZIP Code Phon e Number [address] documented in this encounter Visit Diagnoses Not on filedocumented in this encounter Care Teams Anesthesiology Physician Relationship Specialty Start Date End Date Momo Forbes PCP - General Family Practice 01/02/14 [facility] [address] [place] [address] documented as of this encounter
--- OUTSIDE RECORDS SUMMARY | 2022-04-29 12:17 | XMS_ITS | Encounter Summary ---
:1950 Author Organization [place] Address [facility] [place] [address] Care Team Providers Name Role Phone Momo Forbes Primary Care Provider Joseph Quintana MD Unavailable Encounter Details Date Type Department Care Team Description 09/04/2018 External Order Results [facility] Nurse, [facility] Transplant Clinic 9 [place] [address] Social History Tobacco Use Types [...] 2:50 PM R esults for this DIFFERENTIAL DIRECTOR OF INSTRUMENTAL MUSIC procedure are i n the results section. BASIC METABOLIC PANEL Routine 09/04/2018 2:50 PM Results for this DIRECTOR OF INSTRUMENTAL MUSIC procedure are i n the results section. PROTEIN RANDOM URINE Routine 09/04/2018 2:49 PM R esults for this DIRECTOR OF INSTRUMENTAL MUSIC procedure are i n the results section. documented in this encounter Results (ABNORMAL) CBC with platelets differential (09/04/2018 2:50 PM DIRECTOR OF INSTRUMENTAL MUSIC) [facility] gist Method Time Signature WBC [...] Laterality Blood specimen 09/04/2018 2:50 PM (specimen) DIRECTOR OF INSTRUMENTAL MUSIC Narrative JESSICA THIBODEAUX - 09/06/2018 9:13 AM DIRECTOR OF INSTRUMENTAL MUSIC Verified by Cassie Florian on 09/06/2018. Patient Reported LAB - BLOOD ORDERABLES Performing Organization Address City/State/ZIP Code Phon e Number [facility] [facility] LABDE SCAN (ABNORMAL) Basic metabolic panel (09/04/2018 2:50 PM DIRECTOR OF INSTRUMENTAL MUSIC) Analysis Performed At Patho logist Time Signature [...] 49 (L) >60 LABDE SCAN (if ml/min/1.7 Marshallese) 3m2 (External) GFR Estimated 41 (L) >60 LABDE SCAN (External) ml/min/1.7 3m2 Specimen (Source) Anatomical Collection Method Collection Time Re ceived Time Location / / Volume Laterality Blood specimen 09/04/2018 2:50 PM (specimen) DIRECTOR OF INSTRUMENTAL MUSIC Narrative JESSICA PFT - 09/06/2018 9:13 AM DIRECTOR OF INSTRUMENTAL MUSIC Verified by Cassie Florian on 09/06/2018. Patient Reported LAB - BLOOD ORDERABLES Performing Organization Address City/State/ZIP Code Phon e Number [place] [facility] LABDE SCAN (ABNORMAL) Protein random urine with Creat Ratio (09/04/2018 2:49 PM DIRECTOR OF INSTRUMENTAL MUSIC) P athologist Signature Protein Random 72 (H) 1 - 14 LABDE SCAN Urine mg/dL (External) Creatinine 104.0 63.0 - LABDE SCAN Urine mg/dL 166.0 (External) mg/dL Protein Total 0.7 (H) <0.2 LABDE SCAN Ur per Cr (External) Specimen (Source) Anatomical Collection Method Collection Time Re ceived Time Location / / Volume Laterality Urine specimen 09/04/2018 2:49 PM (specimen) DIRECTOR OF INSTRUMENTAL MUSIC Narrative MARLENEE PFT - 09/06/2018 9:13 AM DIRECTOR OF INSTRUMENTAL MUSIC Verified by Cassie Florian on 09/06/2018. Patient Reported LAB - URINE ORDERABLES Performing Organization Address City/State/ZIP Code Phon e Number [place] [facility] LABDE SCAN documented in this encounter Visit Diagnoses Not on filedocumented in this encounter Care Teams Founder And President Relationship Specialty Start Date End Date Momo Forbes PCP - General Family Practice 01/02/14 [facility] 1999 [place] [address] Joseph Quintana, Assigned Nephrology 03/29/21 MD Provider [address] [facility] 353 [facility] 1932 [place] [address] documented as of this encounter
--- OUTSIDE RECORDS SUMMARY | 2022-04-29 12:17 | XMS_ITS | Encounter Summary ---
:1950 Author Organization [place] Address [address] [place] [address] Care Team Providers Name Role Phone Forbes, Momo He Primary Care Provider Reason for Referral Consultation - Closed Specialty Diagnoses / Procedures Referred By Contact Refer red To Contact Diagnoses Obesity Kidney transplanted Sot Other Services 0 [place] [address] Referral ID Status Reason Start Date Expiration Date Visits Requ ested Visits Authorized [id number] Closed 10/17/2018 10/17/2019 1 1 OR BI DEVELOPER Reason for Visit Reason Comments Transplant Encounter Details Date Type Department Care Team Description 10/17/2018 Orders Only [facility] Marcelacaty Nazia Obesity (P rimary Dx); Transplant Clinic BOGDAN Hicks Kidney transplanted 9 [place] [address] Social History Tobacco Use Types [...] documented in this encounter Care Teams Director Of Residence Life Relationship Specialty Start Date End Date Momo Forbes PCP - General Family Practice 01/02/14 [facility] 1999 [place] [address] documented as of this encounter
--- OUTSIDE RECORDS SUMMARY | 2022-04-29 12:17 | XMS_ITS | Encounter Summary ---
:1950 Author Organization [place] Address [address] [place] [address]. [place] [address] Care Team Providers Name Role Phone Momo [...] filedocumented in this encounter Care Teams Plate And Frame Filter Operator Relationship Specialty Start Date End Date Momo Forbes PCP - General Family Practice 01/02/14 [facility] [address] [place] [address] documented as of this encounter
--- OUTSIDE RECORDS SUMMARY | 2022-04-29 12:17 | XMS_ITS | Encounter Summary ---
:1950 Author Organization [place] Address [facility] [place] [address] Care Team Providers Name Role Phone Momo Forbes Primary Care Provider Reason for Visit Reason Onset Date Comments Refill Request 12/22/2018 prograf, mycophenola te (PT IS OUT OF MEDS) Encounter Details Date Type Department Care Team Description 12/22/2018 Refill [facility] Joseph Quintana R alenest (prograf, Transplant Clinic MD Herminio mycophenolate (PT IS OUT 9[address] [facility] [address] [facility] OF MEDS)) [facility] [address] [facility] 913 [phone] [place], [place] [phone] [facility] [phone] (Wo rk) Social History Tobacco Use Types [...] transplant documented in this encounter Care Teams President Practicing Urologist Relationship Specialty Start Date End Date Momo Forbes PCP - General Family Practice 01/02/14 [facility] 1999 [place] [address] documented as of this encounter
--- OUTSIDE RECORDS SUMMARY | 2022-04-29 12:17 | XMS_ITS | Encounter Summary ---
:1950 Author Organization [place] Address [address] [place] [address] Care Team Providers Name Role Phone ForbesMomo prakahs A Primary Care Provider Reason for Visit Reason Onset Date Comments Transplant Lab 09/06/2018 Encounter Details Date Type Department Care Team Description 09/06/2018 Telephone [facility] Transplant Adon[place], Transplant Lab Clinic BOGDAN Lopes [address] [place] [phone] Social History Tobacco Use Types Packs/Day [...] Marianne Urias RN - 09/12/2018 11:58 AM BLIND LACER Attempted to reach pt again regarding his labs, no answer. Left message for pt to return call. D LACER Telephone Encounter - Marianne Urias RN - 09/07/2018 1:30 PM BLIND LACER Attempted to reach pt again regarding labs, no answer. Left message for pt to return call. D LACER Telephone Encounter - Marianne Urias RN - 09/06/2018 12:59 PM BLIND LACER ISSUE: Creatinine 1.69, up from pt baseline [...] Left message for pt to return call. D LACER documented in this encounter Plan of Treatment Not on filedocumented as of this encounter Visit Diagnoses Not on filedocumented in this encounter Care Teams Clinical Documentation Nurse Relationship Specialty Start Date End Date Momo Forbes PCP - General Family Practice 01/02/14 [facility] 1999 [place] [address] documented as of this encounter
--- OUTSIDE RECORDS SUMMARY | 2022-04-29 12:17 | XMS_ITS | Encounter Summary ---
:1950 Author Organization [place] Address [address] [facility] [place] [address] Care Team Providers Name Role Phone Momo Forbes A Primary Care Provider Reason for Visit Reason Onset Date Comments Refill Request 10/25/2018 Encounter Details Date Type Department Care Team Description 10/25/2018 Refill [facility] Joseph Quintana MD Refill Request Transplant Clinic [address] [place] [address] [phone] [place] [address] (Wo rk) Social History Tobacco [...] Marianne Urias RN - 10/26/2018 9:04 AM REVERSE UNIT OPERATOR ISSUE: Refill request for MMF 03/2019 appt [...] to call if further questions or concerns. 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
--- OUTSIDE RECORDS SUMMARY | 2022-04-29 12:17 | XMS_ITS | Encounter Summary ---
:1950 Author Organization [place] Address [address] [place] [address]. [place] [address] Care Team Providers Name Role Phone Momo [...] filedocumented in this encounter Care Teams Shoe Stock Associate Relationship Specialty Start Date End Date Momo Forbes PCP - General Family Practice 01/02/14 [facility] [address] [place] [address] documented as of this encounter
--- OUTSIDE RECORDS SUMMARY | 2022-04-29 12:17 | XMS_ITS | Encounter Summary ---
:1950 Author Organization [place] Address [facility] [place] [address] Care Team Providers Name Role Phone Momo Forbes Primary Care Provider Reason for Visit Reason Onset Date Comments Transplant Pharmacy Medication Review 01/10/2019 Encounter Details Date Type Department Care Team Description 01/10/2019 [facility]phone [facility] Meghan Mccormack, [facility] Transplant Pharmacy [address] [facility] [place] [address] PHARMACY [phone] [address], [place] [address] (Wo rk) Social History Tobacco Use Types [...] filedocumented in this encounter Care Teams Staff Sonographer Relationship Specialty Start Date End Date Momo Forbes PCP - General Family Practice 01/02/14 [facility] [address] [place] [address] documented as of this encounter
--- OUTSIDE RECORDS SUMMARY | 2022-04-29 12:17 | XMS_ITS | Encounter Summary ---
:1950 Author Organization [place] Address [address] [facility] [place] [address] Care Team Providers Name Role Phone Forbes, Momo He Primary Care Provider Reason for Visit Reason Onset Date Comments Transplant 10/18/2018 post transplant lucía sampson Encounter Details Date Type Department Care Team Description 10/18/2018 Telephone [facility] Nazia Jacobson Transplant (post Transplant Clinic BOGDAN Hicksprocedures rn scheduling) [address] [place] [phone] Social History Tobacco Use Types Packs/Day [...] another detailed message with weight managements number. ORATE RESPONSIBILITY OFFICER Telephone Encounter - Maribel Plunkett - 10/18/2018 9:32 AM CST I attempted to contact pt to give him the number for weight management, as they want to talk directly to the patient when scheduling initial appointment, and reached his VM. I LVM asking him to return my call. ORATE RESPONSIBILITY OFFICER documented in this encounter Plan of Treatment Not on filedocumented as of this encounter Visit Diagnoses Not on filedocumented in this encounter Care Teams Control Room Helper Relationship Specialty Start Date End Date Momo Forbes PCP - General Family Practice 01/02/14 [facility] [address] [place] [address] documented as of this encounter
--- OUTSIDE RECORDS SUMMARY | 2022-04-29 12:18 | XMS_ITS | Encounter Summary ---
:1950 Author Organization [place] Address [address] [facility] [place] [address] Care Team Providers Name Role Phone Momo Forbes A Primary Care Provider Reason for Visit Reason Onset Date Comments Refill Request 06/28/2017 mycophenolate Encounter Details Date Type Department Care Team Description 06/28/2017 [facility]ill [facility] Mariano, Joseph Refill R equest Transplant Clinic MD Herminio (mycophenolate) [address] [place] [phone] [place] [address] (Wo rk) Social History [...] Fill Date: 05/31/17 Quantity: 180 Janelle Flowers [facility] [phone] RGLASS CONTAINER WINDING OPERATOR documented in this encounter Plan of Treatment Not on filedocumented as of this encounter Visit Diagnoses Diagnosis Kidney transplanted - Primary Kidney replaced by transplant documented in this encounter Care Teams Dock Clerk Relationship Specialty Start Date End Date Momo Forbes PCP - General Family Practice 01/02/[address] [address] documented as of this encounter
--- OUTSIDE RECORDS SUMMARY | 2022-04-29 12:18 | XMS_ITS | Encounter Summary ---
:1950 Author Organization [place] Address [address] [place] [address] Care Team Providers Name Role Phone ForbesMomo santiago A Primary Care Provider Reason for Visit Reason Onset Date Comments Transplant 09/12/2017 Encounter Details Date Type Department Care Team Description 09/12/2017 Telephone [facility] Transplant Nazia Jacobson, Transplant Clinic RN [address] [phone] Social History Tobacco Use Types Packs/Day [...] updated standing lab order and faxed to [facility] lab. INE MAINTENANCE SERVICER Telephone Encounter - Nazia Jacobson RN - 09/12/2017 8:36 AM MACHINE MAINTENANCE SERVICER ISSUE: Hyperglycemia (blood sugar 300-600s w/ last 2 blood draws) Overdue for transplant labs SPECIAL POLICE TASK: Call Diego Guthrie and ask him who is managing his diabetes? Does he have an gas plant repairer? He needs to have better blood sugar control, elevated blood sugars can cause damage to his kidney. Remind him that he should be getting transplant labs done monthly. (3 years out from kidney transplant) Send updated lab letter. INE MAINTENANCE SERVICER documented in this encounter Plan of Treatment Not on filedocumented as of this encounter Visit Diagnoses Not on filedocumented in this encounter Care Teams Histologic Aide Relationship Specialty Start Date End Date Momo Forbes PCP - General Family Practice 01/02/14 [facility] [address] [place] [address] documented as of this encounter
--- OUTSIDE RECORDS SUMMARY | 2022-04-29 12:18 | XMS_ITS | Encounter Summary ---
:1950 Author Organization [place] Address [address] [place] [address] Care Team Providers Name Role Phone Momo Forbes Primary Care Provider Reason for Visit Reason Onset Date Comments Transplant 05/10/2016 refill Encounter Details Date Type Department Care Team Description 05/10/2016 Refill The Transplant Chucho Perez MD Transplant (refill) 2nd Floor, Clinic [address] [place] [address] [facility] [place] [address] Social History Tobacco Use Types [...] send new rx Thank you Janelle Flowers [facility] [phone] documented in this encounter Plan of Treatment Not on filedocumented as of this encounter Visit Diagnoses Diagnosis Kidney transplanted - Primary Kidney replaced by transplant documented in this encounter Care Teams Program Developer Relationship Specialty Start Date End Date Momo Forbes PCP - General Family Practice 01/02/14 [place] [id number] documented as of this encounter
--- OUTSIDE RECORDS SUMMARY | 2022-04-29 12:18 | XMS_ITS | Encounter Summary ---
:1950 Author Organization [place] Address [facility] [place] [address] Care Team Providers Name Role Phone Forbes, Ton Primary Care Provider Reason for Visit Reason Comments RECHECK 6 mo follow up,christiano cruz Encounter Details Date Type Department Care Team Description 04/20/2016 Office Visit [facility] Chucho Joshi, Renal hypertension, stage 1-4 or unspecified chronic kidney disease (Primary Dx); Nephrology Clinic Reactive depression; [address] Thrombocytopenia (H) 9[address] [facility] [address] [place] [phone] Social History Tobacco Use Types Packs/Day [...] Body Mass Index 41.55 09/02/2015 4:32 PM SENIOR INFORMATION DEVELOPER documented in this encounter Progress Notes Chucho [...] encounter Results Folate RBC (10/25/2016 3:54 PM SENIOR INFORMATION DEVELOPER) athologist Signature HCT Within 46.0 % [address] Folate RBC 663 ng/mL [facility] Comment: Reference range: >=366 (Note) Performed by Viki, [address] [facility], [place] [address] www.Food and Beverage, Geoff Reed MD, Lab. Director Specimen Anatomical Collection Method Collection Time Receive d Time (Source) Location / / Volume Laterality Blood specimen 10/25/2016 3:54 PM 017 3:55 (specimen) SENIOR INFORMATION DEVELOPER PM SENIOR INFORMATION DEVELOPER Chucho oJshi MD LAB - BLOOD ORDERABLES Performing Organization Address City/State/[facility] Code Phon e Number [address] [address] [facility] documented in this encounter Visit Diagnoses Diagnosis Renal hypertension, stage 1-4 or unspeci fied chronic kidney disease - Primary Reactive depression Dysthymic disorder Thrombocytopenia (H) Thrombocytopenia, unspecified documented in this encounter Care Teams Manager Market Development Relationship Specialty Start Date End Date Momo Forbes PCP - General Family Practice 01/02/[address] [address] documented as of this encounter
--- OUTSIDE RECORDS SUMMARY | 2022-04-29 12:18 | XMS_ITS | Encounter Summary ---
:1950 Author Organization [place] Address [address] [place] [address] Care Team Providers Name Role Phone Momo Forbes A Primary Care Provider Encounter Details Date Type Department Care Team Description 07/22/2016 Orders Only [facility] Mariano, Joseph Perdomo isael, [facility] [place] 500 [facility] [address] [place], [place] [phone] [address] [place] [address] (Wo rk) Social History Tobacco [...] Res ults for this MASS SPECTROMETRY PM WASTE WATER PLANT OPERATOR procedure are in the results section. documented in this encounter Results (ABNORMAL) Tacrolimus level (08/09/2016 12:15 PM WASTE WATER PLANT OPERATOR) [facility] Method Time Signature Tacrolimus Last 08/08/[address] Tacrolimus 3.8 (L) 5.0 - [facility] Level 15.0 ug/L [facility] Comment: Tacrolimus Reference Range Kidney [...] / Volume Laterality 08/09/2016 12:15 08/11/2016 PM WASTE WATER PLANT OPERATOR 10:15 AM WASTE WATER PLANT OPERATOR Deysi Alicea MD LAB - BLOOD ORDERABLES Performing Organization Address City/State/ZIP Code Phon e Number [facility] [address] documented in this encounter Visit Diagnoses Not on filedocumented in this encounter Care Teams Automatic Operator Relationship Specialty Start Date End Date Momo Forbes PCP - General Family Practice 01/02/14 [facility] [address] [place] [address] documented as of this encounter
--- OUTSIDE RECORDS SUMMARY | 2022-04-29 12:18 | XMS_ITS | Encounter Summary ---
:1950 Author Organization [place] Address [address] [place] [address] Care Team Providers Name Role Phone ForbesMomo santiago A Primary Care Provider Encounter Details Date Type Department Care Team Description 02/20/2016 Orders Only [facility] Mariano, Joseph Perdomo isael, [facility] jm MICHELE 500 [facility] 717 [place], [place] [phone] [address] [address] [place] [address] (Wo rk) Social History Tobacco [...] Tacrolimus Last 2100 [facility] Dose 03/16/16 [facility] Tacrolimus 4.2 (L) 5.0 - [facility] Level 15.0 ug/L [facility] Comment: Tacrolimus Reference Range Kidney Transplant [...] its perform ance characteristics determined by the [facility] [...] e Number [facility] 500 [place], [place] [phone] [place] [address] documented in this encounter Visit Diagnoses Not on filedocumented in this encounter Care Teams Porcelain Finish Sprayer Relationship Specialty Start Date End Date Momo Forbes PCP - General Family Practice 01/02/14 [facility] [address] [place] [address] documented as of this encounter
--- OUTSIDE RECORDS SUMMARY | 2022-04-29 12:18 | XMS_ITS | Encounter Summary ---
:1950 Author Organization [place] Address [facility] [place] [address] Care Team Providers Name Role Phone ForbesMomo santiago A Primary Care Provider Reason for Visit Reason Onset Date Comments Transplant 06/01/2017 Diego returning call Left on 06/05/17 Encounter Details Date Type Department Care Team Description 06/01/2017 [facility] Shiva Kahn, customer service coordinator (Diego Transplant Clinic [facility] returning call Left [facility] [address] on 06/05/17) [place], [place] [address] [place] [phone] [address] Social History Tobacco Use Types Packs/Day [...] care to get a good 12-hour level. HISTOTECHNICIAN TASK: Please fax lab order for tacrolimus level Telephone Encounter - Mary Whitehead - 06/06/2017 7:47 AM CDT Please call Diego. Called on Tuesday left to call him on Tuesday06/06/17. ADDENDUM: HISTOTECHNICIAN TASK: Call with questions and instruction per [...] filedocumented in this encounter Care Teams Supervisor Press Room Relationship Specialty Start Date End Date Momo Forbes PCP - General Family Practice 01/02/14 [facility] [address] [place] [address] documented as of this encounter
--- OUTSIDE RECORDS SUMMARY | 2022-04-29 12:18 | XMS_ITS | Encounter Summary ---
:1950 Author Organization [place] Address [address] [facility] [place] [address] Care Team Providers Name Role Phone ForbesMomo prakash A Primary Care Provider Reason for Visit Reason Onset Date Comments Appointment 10/05/2017 Encounter Details Date Type Department Care Team Description 10/05/2017 Telephone [facility] Shiva Presley MD Appointment Nephrology Clinic [facility] [address] [place] [phone] Social History Tobacco Use Types Packs/Day Years [...] or concernsahead of appointment. Romi Rodriguez RN INUM CONTAINER TESTER documented in this encounter Plan of Treatment Not on filedocumented as of this encounter Visit Diagnoses Not on filedocumented in this encounter Care Teams Mainspring Strip Gauger Relationship Specialty Start Date End Date Momo Forbes PCP - General Family Practice 01/02/14 [facility] [address] [place] [address] documented as of this encounter
--- OUTSIDE RECORDS SUMMARY | 2022-04-29 12:18 | XMS_ITS | Encounter Summary ---
:1950 Author Organization [place] Address [address] [facility] [place] [address] Care Team Providers Name Role Phone Momo Forbes Primary Care Provider Encounter Details Date Type Department Care Team Description 07/15/2017 Orders Only [facility] Loy Morales Kid ney replaced by [facility] MD transplant Laboratory [address] [facility] 500 [facility] [address] [place] [phone] (Wo rk) Social History Tobacco Use Types [...] by Results for this MASS SPECTROMETRY AM WARDROBE CUSTODIAN transplant procedure are in the results section. documented in this encounter Results (ABNORMAL) Tacrolimus level (07/15/2017 10:48 AM WARDROBE CUSTODIAN) [facility] Method Time Signature Tacrolimus Last 0000 07/19/2017 [facility] 07/15/17 10:48 AM [facility] Tacrolimus 4.4 (L) 5.0 - 07/19/2017 [facility] Level 15.0 ug/L 2:38 PM [facility] Comment: Tacrolimus Reference Range Kidney [...] its performa nce characteristics determined by the [facility], ??Special Chemistry Laboratory. It has not [...] Blood specimen 07/15/2017 10:48 7 (specimen) AM WARDROBE CUSTODIAN 10:47 AM WARDROBE CUSTODIAN Orlando Richey MD LAB - BLOOD ORDERABLES Performing Organization Address City/State/ZIP Code Phon e Number [facility] 500 [place], [place] [phone] [place] [address] 500 [place], [place] [phone] [place] [address] documented in this encounter Visit Diagnoses Diagnosis Kidney replaced by transplant documented in this encounter Care Teams Cellar Worker Relationship Specialty Start Date End Date Momo Forbes PCP - General Family Practice 01/02/14 [facility] [address] [place] [address] documented as of this encounter
--- OUTSIDE RECORDS SUMMARY | 2022-04-29 12:18 | XMS_ITS | Encounter Summary ---
:1950 Author Organization [place] Address [address] [place] [address]. [place] [address] Care Team Providers Name Role Phone Momo Forbes Primary Care Provider Reason for Visit Reason Onset Date Comments Transplant Pharmacy Medication Review 01/26/2017 Encounter Details Date Type Department Care Team Description 01/26/2017 Telephone [facility] Janes Rodriguez, Transplant Pharmacy [address] [facility] [place]ication [place] [phone] Social History Tobacco Use Types Packs/Day Years [...] on filedocumented in this encounter Care Teams Locomotive Switch Operator Relationship Specialty Start Date End Date Momo Forbes PCP - General Family Practice 01/02/14 [facility] [address] [place] [address] documented as of this encounter
--- OUTSIDE RECORDS SUMMARY | 2022-04-29 12:18 | XMS_ITS | Encounter Summary ---
:1950 Author Organization [place] Address [address] [place] [address]. [place] [address] Care Team Providers Name Role Phone Momo Forbes Primary Care Provider Reason for Visit Reason Onset Date Comments Transplant 08/31/2017 Encounter Details Date Type Department Care Team Description 08/31/2017 Telephone [facility] Transplant Amanda Garduno Transplant Clinic M, RN [address] [phone] Social History Tobacco Use Types Packs/Day [...] filedocumented in this encounter Care Teams Food Order Expediter Relationship Specialty Start Date End Date Momo Forbes PCP - General Family Practice 01/02/14 [facility] [address] [place] [address] documented as of this encounter
--- OUTSIDE RECORDS SUMMARY | 2022-04-29 12:18 | XMS_ITS | Encounter Summary ---
:1950 Author Organization [place] Address [address] [place] [address]. [place] [address] Care Team Providers Name Role Phone Momo Forbes Primary Care Provider Reason for Visit Reason Onset Date Comments Transplant 02/19/2016 refill Encounter Details Date Type Department Care Team Description 02/19/2016 Refill The Transplant Deysi Burns MD Transplant (refill) 2nd Floor, Clinic [phone] [place] [address] [facility] [place] [address] Social History Tobacco Use Types [...] transplant documented in this encounter Care Teams Digital Imager Relationship Specialty Start Date End Date Momo Forbes PCP - General Family Practice 01/02/14 [facility] [address] [place], [place] [phone] documented as of this encounter
--- OUTSIDE RECORDS SUMMARY | 2022-04-29 12:18 | XMS_ITS | Encounter Summary ---
:1950 Author Organization [place] Address [facility] [place] [address] Care Team Providers Name Role Phone Momo Forbes Primary Care Provider Joseph Quintana MD Unavailable Encounter Details Date Type Department Care Team Description 08/18/2016 External Order Results [facility] Nurse, [facility] Transplant Clinic 9 [place] [address] Social History Tobacco Use Types [...] 08/09/2016 12:21 PM Results for this RESULTS RENTAL CAR PORTER procedure are i n the results section. documented in this encounter Results (ABNORMAL) TXP External Lab Result (08/09/2016 12:21 PM RENTAL CAR PORTER) Analysis Performed At Patho logist Time Signature [...] / / Volume Laterality 08/09/2016 12:21 PM RENTAL CAR PORTER Narrative [facility] - 08/18/2016 1:35 PM RENTAL CAR PORTER Verified by Jessica Major on 016. Patient Reported LABORATORY Performing Organization Address City/State/ZIP Code Phon e Number [facility] documented in this encounter Visit Diagnoses Not on filedocumented in this encounter Care Teams Component Inspector Relationship Specialty Start Date End Date Momo Forbes PCP - General Family Practice 01/02/14 [facility] [address] [place], [place] [phone] Joseph Quintana, Assigned Nephrology 03/29/21 MD Provider [address] [place] [address] 353 [facility] [address] [place], [place] [address] documented as of this encounter
--- OUTSIDE RECORDS SUMMARY | 2022-04-29 12:18 | XMS_ITS | Encounter Summary ---
:1950 Author Organization [place] Address [facility] [address] Care Team Providers Name Role Phone ForbesMomo prakash A Primary Care Provider Reason for Visit Reason Comments RECHECK Kidney follow up Encounter Details Date Type Department Care Team Description 10/25/2016 Office Visit [facility] Anita Joshi MD Renal hypertension, Nephrology Clinic [address] [place] [address] 1-4 [address] [place] [address] unspecified chronic [address] [place], [place] [address] (Primary Dx) [address] [phone] Social History Tobacco Use Types Packs/Day Years [...] Comments Blood Pressure 168/83 10/25/2016 4:39 PM CONSTRUCTION IRONWORKER HELPER Pulse 55 10/25/2016 4:39 PM CONSTRUCTION IRONWORKER HELPER Temperature 36.8 ??C (98.3 ??F) 10/25/2016 4:39 PM CONSTRUCTION IRONWORKER HELPER Respiratory Rate 18 10/25/2016 4:39 PM CONSTRUCTION IRONWORKER HELPER Oxygen Saturation - - Inhaled Oxygen Concentration - - Weight 138.2 kg (304 lb 9.6 oz) 10/25/2016 4:39 PM CONSTRUCTION IRONWORKER HELPER Height 182.9 cm (6') 10/25/2016 4:39 PM CONSTRUCTION IRONWORKER HELPER Body Mass Index 41.31 10/25/2016 4:39 PM CONSTRUCTION IRONWORKER HELPER documented in this encounter Progress Notes Chucho [...] (304 lb 9.6 oz). Medication Reconciliation: complete TRUCTION IRONWORKER HELPER documented in this encounter Plan of Treatment Not on filedocumented as of this encounter Visit Diagnoses Diagnosis Renal hypertension, stage 1-4 or unspeci fied chronic kidney disease - Primary documented in this encounter Care Teams Box Maker Paperboard Relationship Specialty Start Date End Date Momo Forbes PCP - General Family Practice 01/02/14 [facility] [address] [place] [address] documented as of this encounter
--- OUTSIDE RECORDS SUMMARY | 2022-04-29 12:18 | XMS_ITS | Encounter Summary ---
:1950 Author Organization [place] Address [address] [place] [address]. [place] [address] Care Team Providers Name Role Phone Momo Forbes Primary Care Provider Encounter Details Date Type Department Care Team Description 11/10/2017 [facility] [place] [phone] Social History Tobacco Use Types Packs/Day Years [...] disease documented in this encounter Care Teams Television News Producer Relationship Specialty Start Date End Date Momo Forbes PCP - General Family Practice 01/02/14 [facility] [address] [place] [address] documented as of this encounter
--- OUTSIDE RECORDS SUMMARY | 2022-04-29 12:18 | XMS_ITS | Encounter Summary ---
:1950 Author Organization [place] Address [address] [facility] [place] [address] Care Team Providers Name Role Phone Momo Forbes A Primary Care Provider Reason for Visit Reason Onset Date Comments Refill Request 12/19/2017 Encounter Details Date Type Department Care Team Description 12/19/[address] [facility] Joseph Quintana MD Refill Request Transplant Clinic [address] [place] [address] [phone] [place] [address] (Wo rk) Social History Tobacco [...] Fill Date: 11/14/17 Quantity: 60 Janelle Flowers [facility] [phone] documented in this encounter Plan of Treatment Not on filedocumented as of this encounter Visit Diagnoses Diagnosis Kidney transplanted Kidney replaced by transplant documented in this encounter Care Teams Sr Risk Management Consultant Relationship Specialty Start Date End Date Momo Forbes PCP - General Family Practice 01/02/14 [facility] [address] [place] [address] documented as of this encounter
--- OUTSIDE RECORDS SUMMARY | 2022-04-29 12:18 | XMS_ITS | Encounter Summary ---
:1950 Author Organization [place] Address [address] [place] [address]. [place] [address] Care Team Providers Name Role Phone Momo Forbes Primary Care Provider Reason for Visit Reason Onset Date Comments Transplant 12/02/2016 refill Encounter Details Date Type Department Care Team Description 12/02/2016 Refill [facility] Anita Joshi MD Transplant (refill) Nephrology Clinic [address] [place] [id number] [place] [address] (Wo rk) [address] [phone] Social History Tobacco Use Types Packs/Day Years [...] transplant documented in this encounter Care Teams Orthopedics Teacher Relationship Specialty Start Date End Date Momo Forbes PCP - General Family Practice 01/02/14 [facility] [address] [place] [address] documented as of this encounter
--- OUTSIDE RECORDS SUMMARY | 2022-04-29 12:18 | XMS_ITS | Encounter Summary ---
:1950 Author Organization [place] Address [facility] [place] [address] Care Team Providers Name Role Phone Momo Forbes Primary Care Provider Joseph Quintana MD Unavailable Encounter Details Date Type Department Care Team Description 05/03/2016 External Order Results [facility] Nurse, [facility] Transplant Clinic [address] [place] [address] Social History Tobacco Use Types [...] on filedocumented in this encounter Care Teams Flight Superintendent Relationship Specialty Start Date End Date Momo Forbes PCP - General Family Practice 01/02/14 [facility] [address] [place] [address] Joseph Quintana, Assigned Nephrology 03/29/21 MD Provider [address] [place], [place] [address] documented as of this encounter
--- OUTSIDE RECORDS SUMMARY | 2022-04-29 12:18 | XMS_ITS | Encounter Summary ---
:1950 Author Organization [place] Address [address] [place] [address]. [place] [address] Care Team Providers Name Role Phone Momo Forbes Primary Care Provider Reason for Visit Reason Onset Date Comments Transplant 03/15/2016 refill Encounter Details Date Type Department Care Team Description 03/15/2016 Refill [facility] Cristy Chen LPN T ransplant (refill) Transplant Clinic [address] [place] [address] [phone] Social History Tobacco Use Types Packs/Day [...] transplant documented in this encounter Care Teams Registered Sales Assistant Relationship Specialty Start Date End Date Momo Forbes PCP - General Family Practice 01/02/14 [facility] [address] [place] [address] documented as of this encounter
--- OUTSIDE RECORDS SUMMARY | 2022-04-29 12:18 | XMS_ITS | Encounter Summary ---
:1950 Author Organization [place] Address [address] [place] [address] Care Team Providers Name Role Phone Momo Forbes Primary Care Provider Encounter Details Date Type Department Care Team Description 11/03/2017 Orders Only [facility] Loy Morales Kid ney replaced by [facility] MD transplant Laboratory 420 [facility] 500 [facility] 609 [place] [id number] (Wo rk) Social History Tobacco Use Types [...] Results Tacrolimus level (11/03/2017 11:30 AM CDT) [facility] Method Time Signature Tacrolimus Not Provided 11/05/2017 [facility] Last Dose 2:20 PM CDT [facility] Tacrolimus 10.7 5.0 - 11/06/2017 [facility] 15.0 ug/L 1:00 PM CDT [facility] Comment: Tacrolimus Reference Range Kidney Transplant Pediatric [...] Address City/State/ZIP Code Phon e Number [id number] [place] [address] documented in this encounter Visit Diagnoses Diagnosis Kidney replaced by transplant documented in this encounter Care Teams Software Publisher Relationship Specialty Start Date End Date Momo Forbes PCP - General Family Practice 01/02/14 [facility] [address] [place] [address] documented as of this encounter
--- OUTSIDE RECORDS SUMMARY | 2022-04-29 12:18 | XMS_ITS | Encounter Summary ---
:1950 Author Organization [place] Address [facility] [address] Care Team Providers Name Role Phone Leidy Momo He Primary Care Provider Reason for Visit Reason Onset Date Comments Transplant 03/30/2016 refill Encounter Details Date Type Department Care Team Description 03/30/2016 Refill [facility] Deysi Burns MD Transplant (refill) 2nd Floor, Clinic [id number] [place] [address] [facility] [place] [address] Social History Tobacco Use Types [...] Date: 02/19/16 Quantity: 240 Thanks!! Janelle Jackson [facility] documented in this encounter Plan of Treatment Not on filedocumented as of this encounter Visit Diagnoses Diagnosis Kidney transplanted - Primary Kidney replaced by transplant documented in this encounter Care Teams Data Engineer Relationship Specialty Start Date End Date Momo Forbes PCP - General Family Practice 01/02/[address] [address] documented as of this encounter
--- OUTSIDE RECORDS SUMMARY | 2022-04-29 12:18 | XMS_ITS | Encounter Summary ---
:1950 Author Organization [place] Address [address] [place] [address]. [place] [address] Care Team Providers Name Role Phone Momo Forbes Primary Care Provider Reason for Visit Reason Onset Date Comments Refill Request 08/31/2017 mycophenolate Encounter Details Date Type Department Care Team Description 08/31/2017 Refill [facility] Mariano, Joseph Refill [facility] Transplant Clinic MD Herminio (mycophenolate) [address] [place] [phone] [place] [address] (Wo rk) Social History Tobacco [...] transplant documented in this encounter Care Teams Mines Inspector Relationship Specialty Start Date End Date Momo Forbes PCP - General Family Practice 01/02/14 [facility] [address] [place], [place] [phone] documented as of this encounter
--- OUTSIDE RECORDS SUMMARY | 2022-04-29 12:18 | XMS_ITS | Encounter Summary ---
:1950 Author Organization [place] Address [address] [place] [address] Care Team Providers Name Role Phone Forbes, Ton Primary Care Provider Reason for Visit Reason Onset Date Comments Transplant 11/07/2017 Encounter Details Date Type Department Care Team Description 11/07/2017 Telephone [facility] Transplant Nazia Jacobson, Transplant Clinic RN [address] [place] [address] [phone] Social History Tobacco Use Types Packs/Day [...] range, repeat tac level in 1 week. SALES FORCE ADMINISTRATOR TASK: Call patient with instructions per plan. Enter lab orders if needed. documented in this encounter Plan of Treatment Not on filedocumented as of this encounter Visit Diagnoses Not on filedocumented in this encounter Care Teams Sumo Wrestler Relationship Specialty Start Date End Date Momo Forbes PCP - General Family Practice 01/02/[address] [address] documented as of this encounter
--- OUTSIDE RECORDS SUMMARY | 2022-04-29 12:18 | XMS_ITS | Encounter Summary ---
:1950 Author Organization [place] Address [address] [place] [address]. [place] [address] Care Team Providers Name Role Phone Momo Forbes Primary Care Provider Reason for Visit Reason Onset Date Comments Refill Request 10/11/2017 Encounter Details Date Type Department Care Team Description 10/11/2017 Refill [facility] Transplant Debbie Calderon LPN Refill Request Clinic [address] [place] [address] [phone] Social History Tobacco Use Types Packs/Day [...] transplant documented in this encounter Care Teams Sap Ppm Consultant Relationship Specialty Start Date End Date Momo Forbes PCP - General Family Practice 01/02/14 [facility] [address] [place] [address] documented as of this encounter
--- OUTSIDE RECORDS SUMMARY | 2022-04-29 12:18 | XMS_ITS | Encounter Summary ---
:1950 Author Organization [place] Address [address] [place] [address] Care Team Providers Name Role Phone Momo Forbes Primary Care Provider Encounter Details Date Type Department Care Team Description 05/31/2017 Orders Only [facility] Loy Morales Kid ney replaced by [facility] MD transplant Laboratory 420 [facility] 500 [facility] 609 [place] [id number] (Wo rk) Social History Tobacco Use Types [...] (ABNORMAL) Tacrolimus level (05/30/2017 1:01 PM CDT) [facility] Method Time Signature Tacrolimus Last 05/29/17 05/31/2017 [facility] Dose 1930 1:05 PM CDT [facility] Tacrolimus 3.0 (L) 5.0 - 05/31/2017 [facility] 15.0 ug/L 7:54 PM CDT [facility] Comment: Tacrolimus Reference Range Kidney [...] Address City/State/ZIP Code Phon e Number [facility] 500 [place], [place] [phone] [place] [address] documented in this encounter Visit Diagnoses Diagnosis Kidney replaced by transplant documented in this encounter Care Teams Outside Sales Engineer Relationship Specialty Start Date End Date Momo Forbes PCP - General Family Practice 01/02/14 [facility] [address] [place] [address] documented as of this encounter
--- OUTSIDE RECORDS SUMMARY | 2022-04-29 12:18 | XMS_ITS | Encounter Summary ---
:1950 Author Organization [place] Address [address] [place] [address] Care Team Providers Name Role Phone Momo Forbes Primary Care Provider Reason for Visit Reason Onset Date Comments Pre Visit Planning - Unable To Reach 10/14/2016 Encounter Details Date Type Department Care Team Description 10/14/2016 Telephone [facility] Anita Joshi MD Pre Visit Planning - Nephrology Clinic [address] [place] [address] [place] [facility] To Reach [address] [address] [phone] Social History Tobacco Use Types Packs/Day Years [...] is office from Clinic 3B at the [facility]. We are calling to remind you of your upcoming Nephrology appointment on 10/25/16 at 440pm. Please arrive about 1 hours prior to your appointment time for labs. Also, please bring an updated medication list or your labeled medication bottles with you to your appointment. If you have any questions or would like to cancel or reschedule your appointment, please call us at [phone]. You are welcome to have your labs done up to a week before your appointment at any [place] or [facility] facility. If you have your labs completed before your appointment, please still come 30 minutes early for check-in MONROE ZURITA CMA WIRER documented in this encounter Plan of Treatment Not on filedocumented as of this encounter Visit Diagnoses Not on filedocumented in this encounter Care Teams Radiographer Relationship Specialty Start Date End Date Momo Forbes PCP - General Family Practice 01/02/14 [facility] [address] [place] [address] documented as of this encounter
--- OUTSIDE RECORDS SUMMARY | 2022-04-29 12:18 | XMS_ITS | Encounter Summary ---
:1950 Author Organization [place] Address [address] [place] [address]. [place] [address] Care Team Providers Name Role Phone Momo Forbes Primary Care Provider Reason for Visit Reason Onset Date Comments Transplant 04/20/2016 refill Encounter Details Date Type Department Care Team Description 04/20/2016 Refill [facility] Joseph Quintana, Transplant (refill) Transplant Clinic [address] [place] [phone] [place] [address] (Wo rk) Social History Tobacco [...] transplant documented in this encounter Care Teams Top Lift Compressor Relationship Specialty Start Date End Date Momo Forbes PCP - General Family Practice 01/02/14 [facility] [address] [place] [address] documented as of this encounter
--- OUTSIDE RECORDS SUMMARY | 2022-04-29 12:18 | XMS_ITS | Encounter Summary ---
:1950 Author Organization [place] Address [address] [facility] [place] [address] Care Team Providers Name Role Phone Momo Forbes Primary Care Provider Encounter Details Date Type Department Care Team Description 01/19/2017 Orders Only [facility] Loy Morales Aft ercare following organ transplant; [facility] Kidney replaced by transplant; Laboratory 420 [facility] Encounter for long-term curr ent use of medication [address] [place] [address] [phone] (Wo rk) Social History Tobacco Use Types [...] Results Tacrolimus level (01/19/2017 9:25 AM CDT) [facility] gist Method Time Signature Tacrolimus Last 0800 [facility] Dose 01/19/17 [facility] Tacrolimus 6.5 5.0 - [facility] 15.0 ug/L [facility] Comment: Tacrolimus Reference Range Kidney [...] its perform ance characteristics determined by the [facility], ??Special Chemistry Laboratory. It has [...] Organization Address City/State/ZIP Code Phon e Number [phone] [place] [address] documented in this encounter Visit Diagnoses Diagnosis Aftercare following organ transplant Kidney replaced by transplant Encounter for long-term current use of m edication documented in this encounter Care Teams Electric Mule Driver Relationship Specialty Start Date End Date Momo Forbes PCP - General Family Practice 01/02/[address] [address] documented as of this encounter
--- OUTSIDE RECORDS SUMMARY | 2022-04-29 12:18 | XMS_ITS | Encounter Summary ---
:1950 Author Organization [place] Address [address] [place] [address]. [place] [address] Care Team Providers Name Role Phone Momo Forbes Primary Care Provider Encounter Details Date Type Department Care Team Description 03/23/2017 Orders Only [facility] Richey Kidne y replaced by Nephrology Clinic transplant (Primary [address] Dx) [address] [place] [phone] Social History Tobacco Use Types Packs/Day [...] Primary documented in this encounter Care Teams Naval Aircrewman Helicopter Relationship Specialty Start Date End Date Momo Forbes PCP - General Family Practice 01/02/14 [facility] [address] [place] [address] documented as of this encounter
--- OUTSIDE RECORDS SUMMARY | 2022-04-29 12:18 | XMS_ITS | Encounter Summary ---
:1950 Author Organization [place] Address [facility] [place] [address] Care Team Providers Name Role Phone Momo Forbes Primary Care Provider Joseph Quintana MD Unavailable Encounter Details Date Type Department Care Team Description 03/18/2016 External Order Results [facility] Nurse, [facility] Transplant Clinic 9 [place] [address] Social History Tobacco Use Types [...] External Lab Result (03/17/2016 10:45 AM CDT) [facility] Method Time Signature Sodium (External) [...] on filedocumented in this encounter Care Teams Rn Transport Relationship Specialty Start Date End Date Momo Forbes PCP - General Family Practice 01/02/14 [facility] [address] [place] [address] Joseph Quintana, Assigned Nephrology 03/29/21 MD Provider [address] [place] [address] 1932 [place] [address] documented as of this encounter
--- OUTSIDE RECORDS SUMMARY | 2022-04-29 12:18 | XMS_ITS | Encounter Summary ---
:1950 Author Organization [place] Address [facility] [place] [address] Care Team Providers Name Role Phone ForbesMomo prakash A Primary Care Provider Encounter Details Date Type Department Care Team Description 10/25/2016 [facility] Only [facility] Thrombocytopenia (H); [address] Aftercare following organ tr ansplant; 1st Floor Kidney replaced by transplan t; [place], [place] Encounter fo r long-term current use [...] Thrombocytopenia (H) Resu lts for this PM STOCK GRADER procedure are i n the results section. BASIC METABOLIC Routine 10/25/2016 3:54 Aftercare following Re sults for this PANEL PM STOCK GRADER organ transplant procedure are in Kidney replaced by the resul ts transplant section. Encounter for long-term current use of medication CBC WITH PLATELETS Routine 10/25/2016 3:54 Aftercare following Results for this PM STOCK GRADER organ transplant procedure are in Kidney replaced by the [facility] ts transplant section. Encounter for long-term current use of medication PROTEIN RANDOM Routine 10/25/2016 3:52 Aftercare following Res ults for this URINE PM STOCK GRADER organ transplant procedure are in Kidney replaced by the [facility] ts transplant section. Encounter for long-term current use of medication CREATININE URINE Routine 10/25/2016 3:52 Thrombocytopenia (H) Results for this CALCULATION ONLY PM STOCK GRADER procedure a re in (LAB ONLY) the results section. documented in this encounter Results (ABNORMAL) Basic metabolic panel (10/25/2016 3:54 PM STOCK GRADER) [facility]ist Method Time Signature Sodium 142 133 - 144 [facility] mmol/L [facility] Potassium 4.2 3.4 - 5.3 [facility] mmol/L [facility] Chloride 108 94 - 109 [facility] mmol/L [facility] Carbon Dioxide 28 20 - 32 [facility] mmol/L [facility] Anion Gap 7 3 - 14 [facility] mmol/L [facility] Glucose 120 (H) 70 - 99 [facility] mg/dL [facility] Urea Nitrogen 19 7 - 30 [facility] mg/dL [facility] Creatinine 1.39 (H) 0.66 - [facility] 1.25 mg/dL [facility] GFR Estimate 51 (L) >60 [facility] mL/min/1.7 [place] m2 [facility] Comment: Non GFR Calc GFR Estimate If Black 62 >60 mL/min/1.7m2 [facility] Comment: GFR Calc Calcium 9.4 8.5 - 10.1 mg/dL [facility] Specimen Anatomical Collection Method Collection Time Receive d Time (Source) Location / / Volume Laterality Blood specimen 10/25/2016 3:54 PM 017 3:55 (specimen) STOCK GRADER PM STOCK GRADER Chucho Joshi MD LAB - BLOOD ORDERABLES Performing Organization Address City/State/ZIP Code Phon e Number [address] [phone] [facility] (ABNORMAL) CBC with platelets (10/25/2016 3:54 PM STOCK GRADER) Analysis Performed At Patho logist Time Signature WBC 5.1 4.0 - 11.0 [facility] 10e9/L [facility] RBC Count 5.50 4.4 - 5.9 [facility] 10e12/L [facility] Hemoglobin 15.5 13.3 - [facility] 17.7 g/dL [facility] Hematocrit 46.0 40.0 - [facility] 53.0 % [facility] MCV 84 78 - 100 [facility] fl [facility] MCH 28.2 26.5 - [facility] 33.0 pg [facility] MCHC 33.7 31.5 - [facility] 36.5 g/dL [facility] RDW 14.1 10.0 - [facility] 15.0 % [facility] Platelet Count 124 (L) 150 - 450 [facility] 10e9/L [facility] Specimen Anatomical Collection Method Collection Time Receive d Time (Source) Location / / Volume Laterality Blood specimen 10/25/2016 3:54 PM 017 3:55 (specimen) STOCK GRADER PM STOCK GRADER Chucho Joshi MD LAB - BLOOD ORDERABLES Performing Organization Address City/[facility] [place] [address] [facility] Folate RBC (10/25/2016 3:54 PM STOCK GRADER) P athologist Signature HCT Within 46.0 % [facility] Past 24h [facility] Folate RBC 663 ng/mL [facility] Comment: Reference range: >=366 (Note) Performed by [employer], [address] [place] [id number] [email or web address], Geoff Reed MD, Lab. Director Specimen Anatomical Collection Method Collection Time Receive d Time (Source) Location / / Volume Laterality Blood specimen 10/25/2016 3:54 PM 017 3:55 (specimen) STOCK GRADER PM STOCK GRADER Chucho Joshi MD LAB - BLOOD ORDERABLES Performing Organization Address City/[facility]/ZIP Code Phon e Number [address] [phone] [facility] Creatinine urine calculation only (10/25/2016 3:52 PM STOCK GRADER) P athologist Signature Creatinine 152 mg/dL [facility] Specimen Anatomical Collection Method Collection Time Receive d Time (Source) Location / / Volume Laterality 10/25/2016 3:52 PM 201 7 4:12 STOCK GRADER PM STOCK GRADER Chucho Joshi MD LAB - URINE ORDERABLES Performing Organization Address City/State/ZIP Code Phon e Number M [facility] [address] [place] [address] [facility] [address] [place] [address], [place] [phone] (ABNORMAL) Protein random urine (10/25/2016 3:52 PM STOCK GRADER) Analysis Performed At Patho logist Time Signature Protein Random 0.48 g/L [facility] Protein Total 0.31 (H) 0 - 0.2 [place] Urine g/gr g/g Cr [facility] Specimen Anatomical Collection Method Collection Time Receive d Time (Source) Location / / Volume Laterality Urine specimen 10/25/2016 3:52 PM 017 4:12 (specimen) STOCK GRADER PM STOCK GRADER Chucho Joshi MD LAB - URINE ORDERABLES Performing Organization Address City/State/ZIP Code Phon e Number [facility] [address] [address] [facility] [address] [place] [address], [place] [phone] documented in this encounter Visit Diagnoses Diagnosis Thrombocytopenia (H) Thrombocytopenia, unspecified Aftercare following organ transplant Kidney replaced by transplant Encounter for long-term current use of m edication documented in this encounter Care Teams Trailer Tank Truck Driver Relationship Specialty Start Date End Date Momo Forbes PCP - General Family Practice 01/02/14 [facility] [address] [place] [address] documented as of this encounter
--- OUTSIDE RECORDS SUMMARY | 2022-04-29 12:18 | XMS_ITS | Encounter Summary ---
:1950 Author Organization [place] Address [address] [place] [address] Care Team Providers Name Role Phone Forbes, Momo He Primary Care Provider Reason for Visit Reason Comments RECHECK Kidney tx follow up Encounter Details Date Type Department Care Team Description 10/10/2017 Office Visit [facility] Shiva Presley Sta tus post kidney transplant (Primary Dx); Nephrology Clinic Immunosuppression (H); [facility] Type 2 diabetes mellitus wit h stage 3 chronic kidney disease, with long-term current use of insulin (H); [address] [place] [address] Benign essential hypertension; [address] Hyperlipidemia, unspecified hyperlipidemia type; [place], [place] RANJAN 220 Skin cancer screening [phone] [place] [address] (Wo rk) Social History Tobacco [...] Comments Blood Pressure 153/74 10/10/2017 2:25 PM ELECTRON TUBE ASSEMBLER Pulse 55 10/10/2017 2:25 PM ELECTRON TUBE ASSEMBLER Temperature 36.7 ??C (98.1 ??F) 10/10/2017 2:25 PM ELECTRON TUBE ASSEMBLER Respiratory Rate - - Oxygen Saturation 98% 10/10/2017 2:25 PM ELECTRON TUBE ASSEMBLER Inhaled Oxygen Concentration - - Weight 135.4 kg (298 lb 6.4 oz) 10/10/2017 2:25 PM ELECTRON TUBE ASSEMBLER Height 182.9 cm (6') 10/10/2017 2:25 PM ELECTRON TUBE ASSEMBLER Body Mass Index 40.47 10/10/2017 2:25 PM ELECTRON TUBE ASSEMBLER documented in this encounter Progress Notes [...] is well as a referral to his books binder for monitoring for any skin cancers. 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 TRON TUBE ASSEMBLER documented in this encounter Nursing Notes [place] [...] Medication Reconciliation: complete MONROE ZURITA CMA . TRON TUBE ASSEMBLER documented in this encounter Plan of [...] skin documented in this encounter Care Teams Parachute Officer Relationship Specialty Start Date End Date Momo Forbes PCP - General Family Practice 01/02/14 [facility] [address] [place] [address] documented as of this encounter
--- OUTSIDE RECORDS SUMMARY | 2022-04-29 12:18 | XMS_ITS | Encounter Summary ---
:1950 Author Organization [place] Address [facility] [place] [address] Care Team Providers Name Role Phone ForbesMomo prakash A Primary Care Provider Reason for Visit Reason Onset Date Comments Transplant Immunosuppression Management 08/13/2016 Encounter Details Date Type Department Care Team Description 08/13/2016 Telephone [facility] Shiva Kahn Transp lant Transplant Clinic RN Immunosuppression [facility] [address] [phone] [place] [address] [place], [place] [id number] Social History Tobacco Use Types Packs/Day Years [...] Patient will repeat labs in 1-2 weeks. S GLAZIER Telephone Encounter - Shiva Kahn, RN - 08/13/2016 7:42 AM CST Tacrolimus level 3.8 reported as 18-hour level. PLAN: Verify timing of labs tac dose and time of blood draw for tac level. Repeat tac level taking care to get a good 12-hour level (11-13 hours acceptable). TASK: Please call patient with questions and instructions per plan. S GLAZIER documented in this encounter Plan of Treatment Not on filedocumented as of this encounter Visit Diagnoses Diagnosis Kidney replaced by transplant - Primary Aftercare following organ transplant Encounter for long-term current use of m edication documented in this encounter Care Teams Supervisor Sign Shop Relationship Specialty Start Date End Date Momo Forbes PCP - General Family Practice 01/02/14 [facility] [address] [place] [address] documented as of this encounter
--- OUTSIDE RECORDS SUMMARY | 2022-04-29 12:18 | XMS_ITS | Encounter Summary ---
:1950 Author Organization [place] Address [facility]0 [facility] [place] [address] Care Team Providers Name Role Phone ForbesMomo prakash A Primary Care Provider Reason for Visit Reason Onset Date Comments Refill Request 09/28/2016 Encounter Details Date Type Department Care Team Description 09/28/2016 Refill [facility] Anita Joshi MD Refill Request Nephrology Clinic [address] [place] [address] [place] [address] [phone] Social History Tobacco Use Types Packs/Day Years [...] 1:51 PM CST Last Office Visit with Standards Analyst: March 2016. Medication refilled per Nephrology Clinic protocol. Janes Jauregui RN FACTURING TEST ENGINEER documented in this encounter Plan of Treatment Not on filedocumented as of this encounter Visit Diagnoses Diagnosis Reactive depression - Primary Dysthymic disorder documented in this encounter Care Teams Statistical Engineer Relationship Specialty Start Date End Date Momo Forbes PCP - General Family Practice 01/02/14 [facility] [address] [place] [address] documented as of this encounter
--- OUTSIDE RECORDS SUMMARY | 2022-04-29 12:18 | XMS_ITS | Encounter Summary ---
:1950 Author Organization [place] Address [address] [facility] [place] [address] Care Team Providers Name Role Phone Momo Forbes A Primary Care Provider Reason for Visit Reason Onset Date Comments Refill Request 10/10/2017 mycophenolae Encounter Details Date Type Department Care Team Description 10/10/2017 Refill [facility] Mariano, Joseph Refill R equest Transplant Clinic MD Herminio (mycophenolae ) [address] [place] [phone] [place] [address] (Wo rk) Social History Tobacco [...] Fill Date: 09/01/17 Quantity: 180 Janelle Flowers [facility] [phone] IED EXERCISE PHYSIOLOGIST documented in this encounter Plan of Treatment Not on filedocumented as of this encounter Visit Diagnoses Diagnosis Kidney transplanted Kidney replaced by transplant documented in this encounter Care Teams Datastage Architect Relationship Specialty Start Date End Date Momo Forbes PCP - General Family Practice 01/02/14 [facility] [address] [place] [address] documented as of this encounter
--- OUTSIDE RECORDS SUMMARY | 2022-04-29 12:18 | XMS_ITS | Encounter Summary ---
:1950 Author Organization [place] Address [facility] [place] [address] Care Team Providers Name Role Phone Momo Forbes Primary Care Provider Joseph Quintana MD Unavailable Encounter Details Date Type Department Care Team Description 09/09/2017 External Order [facility] Nurse, [facility] Kidney replaced by Results Transplant Clinic transplant [address] [place] [phone] Social History Tobacco Use Types Packs/Day [...] 07/15/2017 10:48 AM Result s for this PHARMACOVIGILANCE SCIENTIST procedure are i n the results section. BASIC METABOLIC Routine 07/15/2017 10:48 AM Kidney replaced by Results for this PANEL PHARMACOVIGILANCE SCIENTIST transplant procedure are i n the results [...] Results (ABNORMAL) Hemoglobin A1c (07/15/2017 10:48 AM PHARMACOVIGILANCE SCIENTIST) Patholo gist Method Time Signature Hemoglobin A1C >14.0 (H) <=6.4 % LABDE SCAN (External) Specimen (Source) Anatomical Collection Method Collection Time Re ceived Time Location / / Volume Laterality Blood specimen 07/15/2017 10:48 (specimen) AM PHARMACOVIGILANCE SCIENTIST Narrative ZACHERYMARIELABea PFT - 09/09/2017 9:36 PM PHARMACOVIGILANCE SCIENTIST Verified by Sharon Martinez on 8. Patient Reported LAB - BLOOD ORDERABLES Performing Organization Address City/State/ZIP Code Phon e Number JESSICA PFT LABDE SCAN (ABNORMAL) Basic metabolic panel (07/15/2017 10:48 AM PHARMACOVIGILANCE SCIENTIST) Analysis Performed At Patho logist Time Signature [...] 55 (L) >60 LABDE SCAN (if ml/min/1.7 Chilean) 3m2 (External) GFR Estimated 46 (L) >60 LABDE SCAN (External) ml/min/1.7 3m2 Specimen (Source) Anatomical Collection Method Collection Time Re ceived Time Location / / Volume Laterality Blood specimen 07/15/2017 10:48 (specimen) AM PHARMACOVIGILANCE SCIENTIST Narrative BREEZE PFT - 09/09/2017 9:36 PM PHARMACOVIGILANCE SCIENTIST Verified by Sharon Martinez on 8. [place] [...] Narrative BREEZE PFT - 09/09/2017 9:39 PM PHARMACOVIGILANCE SCIENTIST Verified by Sharon Martinez on 8. Patient [...] Narrative BREEZE PFT - 09/09/2017 9:39 PM PHARMACOVIGILANCE SCIENTIST Verified by Sharon Martinez on 8. [place] [...] 51 (L) >60 LABDE SCAN (if ml/min/1.7 Chilean) 3m2 (External) GFR Estimated 42 (L) >60 LABDE SCAN (External) ml/min/1.7 3m2 Specimen (Source) Anatomical Collection Method Collection Time Re ceived Time Location / / Volume Laterality Blood specimen 05/30/2017 9:32 AM (specimen) CDT Narrative BREEZE PFT - 09/09/2017 9:39 PM PHARMACOVIGILANCE SCIENTIST Verified by Sharon Martinez on 8. [place] [...] Narrative BREEZE PFT - 09/09/2017 9:44 PM PHARMACOVIGILANCE SCIENTIST Verified by Sharon Martinez on 8. Patient [...] Narrative BREEZE PFT - 09/09/2017 9:44 PM PHARMACOVIGILANCE SCIENTIST Verified by Sharon Martinez on 8. Patient [...] Narrative BREEZE PFT - 09/09/2017 9:44 PM PHARMACOVIGILANCE SCIENTIST Verified by Sharon Martinez on 8. Patient [...] 55 (L) >60 LABDE SCAN (if ml/min/1.7 Chilean) 3m2 (External) GFR Estimated 46 (L) >60 LABDE SCAN (External) ml/min/1.7 3m2 Specimen (Source) Anatomical Collection Method Collection Time Re ceived Time Location / / Volume Laterality Blood specimen 01/19/2017 9:30 AM (specimen) CDT Narrative JESSICA PFT - 09/09/2017 9:44 PM PHARMACOVIGILANCE SCIENTIST Verified by Sharon Martinez on 8. Patient Reported LAB - BLOOD ORDERABLES Performing Organization Address City/State/ZIP Code Phon e Number BREEZBea PFT LABDE SCAN documented in this encounter Visit Diagnoses Diagnosis Kidney replaced by transplant documented in this encounter Care Teams Airplane Patroller Relationship Specialty Start Date End Date Momo Forbes PCP - General Family Practice 01/02/14 [facility] [address] [place] [address] Joseph Quintana, Assigned Nephrology 03/29/21 Provider 717 [facility] 353 [facility] [address] [place] [address] documented as of this encounter
--- OUTSIDE RECORDS SUMMARY | 2022-04-29 12:18 | XMS_ITS | Encounter Summary ---
:1950 Author Organization [place] Address [address] [place] [address] Care Team Providers Name Role Phone ForbesMomo santiago A Primary Care Provider Encounter Details Date Type Department Care Team Description 05/30/2017 Hospital Encounter [facility] ED Orlando Richey, [facility] [address] [phone] [phone] (Wo rk) Social History Tobacco Use Types [...] on filedocumented in this encounter Care Teams Dope Dry House Operator Relationship Specialty Start Date End Date Momo Forbes PCP - General Family Practice 01/02/14 [facility] [address] [place] [address] documented as of this encounter
--- OUTSIDE RECORDS SUMMARY | 2022-04-29 12:18 | XMS_ITS | Encounter Summary ---
:1950 Author Organization [place] Address [address] [place] [address]. [place] [address] Care Team Providers Name Role Phone Momo Forbes Primary Care Provider Reason for Visit Reason Onset Date Comments Transplant 05/26/2017 refill Encounter Details Date Type Department Care Team Description 05/26/2017 Refill [facility] Anita Joshi MD Transplant (refill) Nephrology Clinic [address] [place] [phone] [place] [address] (Wo rk) [phone] Social History Tobacco Use Types Packs/Day Years [...] documented in this encounter Care Teams Director Process Relationship Specialty Start Date End Date Momo Forbes PCP - General Family Practice 01/02/14 [facility] [address] [place] [address] documented as of this encounter
--- OUTSIDE RECORDS SUMMARY | 2022-04-29 12:19 | XMS_ITS | Encounter Summary ---
:1950 Author Organization [place] Address [address] [place] [address]. [place] [address] Care Team Providers Name Role Phone Momo Forbes Primary Care Provider Reason for Visit Reason Onset Date Comments Transplant 02/06/2016 refill Encounter Details Date Type Department Care Team Description 02/06/[address] [facility] Cristy Chen LPN T ransplant (refill) Transplant Clinic [address] [place] [address] [phone] Social History Tobacco Use Types Packs/Day [...] transplant documented in this encounter Care Teams Independent Film Maker Relationship Specialty Start Date End Date Momo Forbes PCP - General Family Practice 01/02/14 [facility] [address] [place] [address] documented as of this encounter
--- OUTSIDE RECORDS SUMMARY | 2022-04-29 12:19 | XMS_ITS | Encounter Summary ---
:1950 Author Organization [place] Address [address] [place] [address] Care Team Providers Name Role Phone Ingrid Santana RN Unavailable Momo Forbes Primary Care Provider Encounter Details Date Type Department Care Team Description 07/22/2015 Orders Only [facility] Dereck Dangelo MD [facility] 420 [facility] 195 [address] [place], [place] [address] [place] [address] [phone] Social History Tobacco Use Types Packs/Day Years [...] PM R esults for this MASS SPECTROMETRY AIR TRAFFIC CONTROL SUPERVISOR procedure are in the results section. documented in this encounter Results Tacrolimus level (08/12/2015 4:35 PM AIR TRAFFIC CONTROL SUPERVISOR) [facility] Method Time Signature Tacrolimus Last 0[facility] Dose 08/12/15 [facility] Tacrolimus 5.3 5.0 [facility] Level 15.0 ug/L [facility] [...] its perform ance characteristics determined by the [facility], ??Special Chemistry Laboratory. It has [...] Volume Laterality 08/12/2015 4:35 PM 5 9:11 AIR TRAFFIC CONTROL SUPERVISOR AM AIR TRAFFIC CONTROL SUPERVISOR Mingo Matas MD LAB - BLOOD ORDERABLES Performing Organization Address City/State/ZIP Code Phon e Number [facility] [address] documented in this encounter Visit Diagnoses Not on filedocumented in this encounter Care Teams Manager Client Service Relationship Specialty Start Date End Date Momo Forbes PCP - General Family Practice 01/02/14 [facility] [address] [place] [address] Ingrid Santana, RN Registered Nurse Transplant 02/10/12 10/01/15 documented as of this encounter
--- OUTSIDE RECORDS SUMMARY | 2022-04-29 12:19 | XMS_ITS | Encounter Summary ---
:1950 Author Organization [place] Address [facility]0 [facility] [place] [address] Care Team Providers Name Role Phone Ingrid Santana RN Unavailable Momo Forbes Primary Care Provider Joseph Quintana MD Unavailable Encounter Details Date Type Department Care Team Description 08/14/2015 External Order Results The Transplant Ce nter Nurse, [facility] 2nd Floor, Clinic [address] [phone] Social History Tobacco Use Types Packs/Day Years [...] 4:41 PM Results f or this RESULTS CONSERVATION OFFICER procedure are i n the results section. documented in this encounter Results (ABNORMAL) TXP External Lab Result (08/12/2015 4:41 PM CONSERVATION OFFICER) [facility] Time Signature Sodium 135 135 - [...] 59 (L) >60 LABDE SCAN (if mL/min/1.7 Kenyan) 3/m2 (External) GFR Estimated 48 (L) >60 [...] / / Volume Laterality 08/12/2015 4:41 PM CONSERVATION OFFICER Narrative BREEZE PFT - 08/14/2015 9:25 AM CONSERVATION OFFICER Verified by Freddy Mehta on 08/14. Patient Reported LABORATORY Performing Organization Address City/State/ZIP Code Phon e Number BREEZE PFT LABDE SCAN documented in this encounter Visit Diagnoses Not on filedocumented in this encounter Care Teams On Car Supervisor Relationship Specialty Start Date End Date Momo Forbes PCP - General Family Practice 01/02/14 [facility] [address] [place] [address] Ingrid Santana, RN Registered Nurse Transplant 02/10/12 10/01/15 Joseph Quintana, Assigned Nephrology 03/29/21 MD Provider [address] [place] [address] 353 [facility] 1932 [place] [address] documented as of this encounter
--- OUTSIDE RECORDS SUMMARY | 2022-04-29 12:19 | XMS_ITS | Encounter Summary ---
:1950 Author Organization [place] Address [address] [place] [address] Care Team Providers Name Role Phone Ingrid Santana RN Unavailable Momo Forbes Primary Care Provider Encounter Details Date Type Department Care Team Description 09/22/2014 Orders Only [facility], [facility], [facility] j[place] [address] [phone] [place] [address] [address] [place] [address] (Wo rk) Social History Tobacco [...] AM R esults for this MASS SPECTROMETRY BRICK TENDER procedure are in the results section. TACROLIMUS BY TANDEM Routine 10/03/2014 8:30 AM R esults for this MASS SPECTROMETRY BRICK TENDER procedure are in the results section. documented in this encounter Results Tacrolimus level (10/17/2014 8:15 AM BRICK TENDER) [facility] Method Time Signature Tacrolimus Last 2029 [facility] Dose 10/16/14 [facility] Tacrolimus 9.2 5.0 - [facility] Level 15.0 ug/L [facility] Comment: Tacrolimus Reference Range Kidney Transplant Pediatric [...] its perform ance characteristics determined by the [facility], ??Special Chemistry Laboratory. It has not been cleared or approved by the FDA . The laboratory is regulated under CLIA as qualified to perform high-complexity testing. This test is used for clinical purposes. It should not be regarded as investigational or for research. Specimen Anatomical Collection Method Collection Time Receive d Time (Source) Location / / Volume Laterality 10/17/2014 8:15 AM 5 BRICK TENDER 11:17 AM BRICK TENDER Mingo Dangelo MD LAB - BLOOD ORDERABLES Performing Organization Address City/State/ZIP Code Phon e Number [facility] [address] [place] [address] [facility] Tacrolimus level (10/03/2014 8:30 AM BRICK TENDER) [facility] gist Method Time Signature Tacrolimus Last 10/02/14 [facility] Dose 2030 [facility] Tacrolimus 7.4 5.0 - [facility] Level 15.0 ug/L [facility] Comment: Tacrolimus Reference Range Kidney Transplant Pediatric [...] its perform ance characteristics determined by the [facility], ??Special Chemistry Laboratory. It has not been cleared or approved by the FDA . The laboratory is regulated under CLIA as qualified to perform high-complexity testing. This test is used for clinical purposes. It should not be regarded as investigational or for research. Specimen Anatomical Collection Method Collection Time Receive d Time (Source) Location / / Volume Laterality 10/03/2014 8:30 AM 5 BRICK TENDER 11:09 AM BRICK TENDER Mingo Dangelo MD LAB - BLOOD ORDERABLES Performing Organization Address City/State/[facility] Code Phon e Number [facility] [address] documented in this encounter Visit Diagnoses Not on filedocumented in this encounter Care Teams Radiosonde Operator Relationship Specialty Start Date End Date Momo Forbes PCP - General Family Practice 01/02/14 [facility] [address] [place] [address] Ingrid Santana, RN Registered Nurse Transplant 02/10/12 10/01/15 documented as of this encounter
--- OUTSIDE RECORDS SUMMARY | 2022-04-29 12:19 | XMS_ITS | Encounter Summary ---
:1950 Author Organization [place] Address [facility] [place] [address] Care Team Providers Name Role Phone Ingrid Santana RN Unavailable Momo Forbes Primary Care Provider Encounter Details Date Type Department Care Team Description 12/27/2014 External Order Results The Transplant Ce krish Nurse, [facility] 2nd Floor, Clinic [address] [phone] Social History Tobacco Use Types [...] External Lab Result (12/25/2014 9:48 AM CDT) [facility] Method Time Signature Sodium 138 135 [...] 51 (L) >60 LABDE SCAN (if ml/min/1. Nigerien) 73m2 (External) GFR Estimated 42 (L) >60 [...] on filedocumented in this encounter Care Teams Post Hole Digging Machine Operator Relationship Specialty Start Date End Date Momo Forbes PCP - General Family Practice 01/02/14 [facility] [address] [place] [address] Ingrid Santana, RN Registered Nurse Transplant 02/10/12 10/01/15 documented as of this encounter
--- OUTSIDE RECORDS SUMMARY | 2022-04-29 12:19 | XMS_ITS | Encounter Summary ---
:1950 Author Organization [place] Address [address] [place] [address] Care Team Providers Name Role Phone Ingrid Santana RN Unavailable Momo Forbes Primary Care Provider Reason for Visit Reason Onset Date Comments Medication Question 01/17/2015 Encounter Details Date Type Department Care Team Description 01/17/2015 Telephone [facility] Beny Staton RPH Medication Question 500 [facility] [place] [address] PHARMACY [phone] [place], [place] [id number] Social History Tobacco Use Types Packs/Day Years [...] keep better tabs. His last to in [employer] were good but that was 8 months ago. Beny Staton [facility] Specialty Pharmacist [phone] documented in this encounter Plan of Treatment Not on filedocumented as of this encounter Visit Diagnoses Not on filedocumented in this encounter Care Teams Marketing Data Specialist Relationship Specialty Start Date End Date Momo Forbes PCP - General Family Practice 01/02/14 [facility] [address] [place] [address] Ingrid Santana, RN Registered Nurse Transplant 02/10/12 10/01/15 documented as of this encounter
--- OUTSIDE RECORDS SUMMARY | 2022-04-29 12:19 | XMS_ITS | Encounter Summary ---
:1950 Author Organization [place] Address [facility] [place] [address] Care Team Providers Name Role Phone Ingrid Santana RN Unavailable Momo Forbes Primary Care Provider Reason for Visit Reason Onset Date Comments Patient Reminder 08/28/2015 Encounter Details Date Type Department Care Team Description 08/28/2015 Telephone Nephrology Yesenia Clements CMA Patient Reminder 2nd Floor, Clinic [address] [place], [place] [phone] Social History Tobacco Use Types Packs/Day [...] Patient confirmed and understood. Yesenia Clements CMA MAKER documented in this encounter Plan of Treatment Not on filedocumented as of this encounter Visit Diagnoses Not on filedocumented in this encounter Care Teams Yacht Captain Relationship Specialty Start Date End Date Momo Forbes PCP - General Family Practice 01/02/14 [facility] [address] [place] [address] Ingrid Santana, RN Registered Nurse Transplant 02/10/12 10/01/15 documented as of this encounter
--- OUTSIDE RECORDS SUMMARY | 2022-04-29 12:19 | XMS_ITS | Encounter Summary ---
:1950 Author Organization [place] Address [facility] [place] [address] Care Team Providers Name Role Phone Ingrid Santana RN Unavailable Momo Forbes Primary Care Provider Joseph Quintana MD Unavailable Encounter Details Date Type Department Care Team Description 07/31/2014 External Order Results The Transplant Ce nter Nurse, [facility] 2nd Floor, Clinic [address]A [address] [phone] Social History Tobacco Use Types Packs/Day Years [...] 8:25 AM Results f or this RESULTS BOILERMAKER PIPE FITTER procedure are i n the results section. documented in this encounter Results (ABNORMAL) TXP External Lab Result (07/29/2014 8:25 AM BOILERMAKER PIPE FITTER) [facility] Method Time Signature Sodium (External) 138 [...] / / Volume Laterality 07/29/2014 8:25 AM BOILERMAKER PIPE FITTER Narrative BREEZE PFT - 07/31/2014 2:47 PM BOILERMAKER PIPE FITTER Verified by Nazia Duncan on 07/31/2014. Verified by Freddy Mehta on 07/31. Patient Reported LABORATORY Performing Organization Address City/State/ZIP Code Phon e Number BREEZE PFT LABDE SCAN documented in this encounter Visit Diagnoses Not on filedocumented in this encounter Care Teams Motor Winder Relationship Specialty Start Date End Date Momo Forbes PCP - General Family Practice 01/02/14 [facility] [address] [place] [address] Ingrid Santana, RN Registered Nurse Transplant 02/10/12 10/01/15 Joseph Quintana, Assigned Nephrology 03/29/21 MD Provider 7 [facility] 353 [facility] 1932 [place] [address] documented as of this encounter
--- OUTSIDE RECORDS SUMMARY | 2022-04-29 12:19 | XMS_ITS | Encounter Summary ---
:1950 Author Organization [place] Address [address] [place] [address]. [place] [address] Care Team Providers Name Role Phone Ingrid Santana RN Unavailable Momo Forbes Primary Care Provider Encounter Details Date Type Department Care Team Description 10/04/2014 External Order Results The Transplant Ce ntjakob Nurse, [facility] 2nd Floor, Clinic [address]A [address] [phone] Social History Tobacco Use Types [...] 8:33 AM Results f or this RESULTS CUTTING MACHINE OFFBEARER procedure are i n the results section. documented in this encounter Results (ABNORMAL) TXP External Lab Result (10/03/2014 8:33 AM CUTTING MACHINE OFFBEARER) Analysis Performed At Patho logist Time Signature [...] 57 (L) >60 LABDE SCAN (if ml/min/1.7 Palauan) 3m2 (External) GFR Estimated 47 (L) >60 [...] / / Volume Laterality 10/03/2014 8:33 AM CUTTING MACHINE OFFBEARER Narrative JESSICA PFT - 10/04/2014 8:51 AM CUTTING MACHINE OFFBEARER Verified by Josseline Palma on 5. Patient Reported LABORATORY Performing Organization Address City/State/ZIP Code Phon e Number BREEZE PFT LABDE SCAN documented in this encounter Visit Diagnoses Not on filedocumented in this encounter Care Teams Waterfront Director Relationship Specialty Start Date End Date Momo Forbes PCP - General Family Practice 01/02/14 [facility] [address] [place] [id number] Ingrid Santana, RN Registered Nurse Transplant 02/10/12 10/01/15 documented as of this encounter
--- OUTSIDE RECORDS SUMMARY | 2022-04-29 12:19 | XMS_ITS | Encounter Summary ---
:1950 Author Organization [place] Address [address] [place] [address] Care Team Providers Name Role Phone Ingrid Santana RN Unavailable Mmoo Forbes Primary Care Provider Reason for Visit Reason Onset Date Comments Medication Question 10/11/2014 Encounter Details Date Type Department Care Team Description 10/11/2014 Telephone [facility] Beny Staton RPH Medication Question 500 [facility] [place] [address] PHARMACY [phone] [place], [place] [phone] Social History Tobacco Use Types Packs/Day Years [...] activity before he checks it. Beny Stat[facility] Specialty Pharmacist [phone] ITY ASSURANCE LEAD documented in this encounter Plan of Treatment Not on filedocumented as of this encounter Visit Diagnoses Not on filedocumented in this encounter Care Teams Pattern Puncher Relationship Specialty Start Date End Date Momo Forbes PCP - General Family Practice 01/02/14 [facility] [address] [place] [address] Ingrid Santana, RN Registered Nurse Transplant 02/10/12 10/01/15 documented as of this encounter
--- OUTSIDE RECORDS SUMMARY | 2022-04-29 12:19 | XMS_ITS | Encounter Summary ---
:1950 Author Organization [place] Address [facility] [place] [address] Care Team Providers Name Role Phone Ingrid Santana RN Unavailable Momo Forbes Primary Care Provider Reason for Visit Reason Onset Date Comments Refill Request 02/10/2015 mycophenolate, smz/t mp Encounter Details Date Type Department Care Team Description 02/10/2015 Refill The Transplant Deysi Burns, Refill Request 2nd Floor, Clinic 2A (mycophenolate, [facility] smz/tmp) Building [address] [place] [address] [place] [address] Social History Tobacco Use Types [...] Fill Date: 01/09/15 Last Fill Quantity: 240 [id number] Last Fill Date: 01/09/15 Last Fill Quantity: 31 [facility] 711 [facility] [address] documented in this encounter Plan of Treatment Not on filedocumented as of this encounter Visit Diagnoses Diagnosis S/P kidney transplant - Primary Kidney replaced by transplant documented in this encounter Care Teams Tester Sound Relationship Specialty Start Date End Date Momo Forbes PCP - General Family Practice 01/02/[address] [address] Ingrid Santana, RN Registered Nurse Transplant 02/10/12 10/01/15 documented as of this encounter
--- OUTSIDE RECORDS SUMMARY | 2022-04-29 12:19 | XMS_ITS | Encounter Summary ---
:1950 Author Organization [place] Address [facility] [place] [address] Care Team Providers Name Role Phone Ingrid Santana RN Unavailable Momo Forbes Primary Care Provider Joseph Quintana MD Unavailable Encounter Details Date Type Department Care Team Description 02/03/2015 External Order Results The Transplant Ce nter Nurse, [facility] 2nd Floor, Clinic [address]A [address] [address] Social History Tobacco Use Types [...] External Lab Result (01/28/2015 8:56 AM CDT) [facility] Method Time Signature Sodium (External) 140 [...] filedocumented in this encounter Care Teams Manager Entry Relationship Specialty Start Date End Date Momo Forbes PCP - General Family Practice 01/02/14 [facility] [address] [place] [address] Ingrid Santana, RN Registered Nurse Transplant 02/10/12 10/01/15 Joseph Quintana, Assigned Nephrology 03/29/21 MD Provider 717 [facility] 353 [facility] 1932 [place], [place] [id number] documented as of this encounter
--- OUTSIDE RECORDS SUMMARY | 2022-04-29 12:19 | XMS_ITS | Encounter Summary ---
:1950 Author Organization [place] Address [address] [place] [address] Care Team Providers Name Role Phone Ingrid Santana RN Unavailable Momo Forbes Primary Care Provider Encounter Details Date Type Department Care Team Description 08/22/2014 Orders Only [facility], Joseph Conor [facility], [facility] jm [place] [address] [phone] [place] [address] 260 [place] [address] (Wo rk) Social History Tobacco [...] Res ults for this MASS SPECTROMETRY AM JAVA DEVELOPER WITH SECURITY CLEARANCE procedure are in the results section. documented in this encounter Results Tacrolimus level (08/26/2014 10:21 AM JAVA DEVELOPER WITH SECURITY CLEARANCE) Patholo gist Method Time Signature Tacrolimus Last 08/25/14 [facility] Dose 2030 [facility] Tacrolimus 6.6 5.0 - [facility] 15.0 ug/L [facility] Comment: Tacrolimus Reference Range Kidney Transplant [...] / Volume Laterality 08/26/2014 10:21 08/28/2014 AM JAVA DEVELOPER WITH SECURITY CLEARANCE 11:34 AM JAVA DEVELOPER WITH SECURITY CLEARANCE Mingo Dangelo MD LAB - BLOOD ORDERABLES Performing Organization Address City/State/ZIP Code Phon e Number [facility] [address] documented in this encounter Visit Diagnoses Not on filedocumented in this encounter Care Teams Custom Motorcycle Painter Relationship Specialty Start Date End Date Momo Forbes PCP - General Family Practice 01/02/14 [facility] 1999 [place] [address] Ingrid Santana, RN Registered Nurse Transplant 02/10/12 10/01/15 documented as of this encounter
--- OUTSIDE RECORDS SUMMARY | 2022-04-29 12:19 | XMS_ITS | Encounter Summary ---
:1950 Author Organization [place] Address [address] [place] [address] Care Team Providers Name Role Phone Ingrid Santana RN Unavailable Momo Forbes Primary Care Provider Encounter Details Date Type Department Care Team Description 10/20/2014 Orders Only [facility], Joseph Conor [facility], [facility] jm [place] [address] [phone] [place] [address] 987 [place] [address] (Wo rk) Social History Tobacco [...] Tacrolimus Last 2030, [facility] Dose 11/04/14 [facility] Tacrolimus 7.7 5.0 - [facility] 15.0 ug/L [facility] Comment: Tacrolimus Reference Range Kidney [...] its perform ance characteristics determined by the [facility], ??Special Chemistry Laboratory. It has not [...] Phon e Number [facility] [address] documented in this encounter Visit Diagnoses Not on filedocumented in this encounter Care Teams Electric Bath Attendant Relationship Specialty Start Date End Date Momo Forbes PCP - General Family Practice 01/02/14 [facility] 1999 [place] [address] Ingrid Santana, RN Registered Nurse Transplant 02/10/12 10/01/15 documented as of this encounter
--- OUTSIDE RECORDS SUMMARY | 2022-04-29 12:19 | XMS_ITS | Encounter Summary ---
:1950 Author Organization [place] Address [facility] [place] [address] Care Team Providers Name Role Phone Ingrid Santana RN Unavailable Momo Forbes Primary Care Provider Reason for Visit Reason Onset Date Comments Refill Request 06/23/2015 amlodipine Encounter Details Date Type Department Care Team Description 06/23/2015 Refill [facility] [address] Refill Request Physicians Orestes Hernandez MD (amlodipine) Tommy [facility] Building [place] 4th Floor, Clinic 4B [address] [facility] [address] [phone] (Wo rk) [address] [phone] Social History Tobacco Use Types Packs/Day Years [...] refills: 3 Last Office Visit with [facility] primary care provider: 05/14/2014 Future Office Visit: BP Readings from Last 3 Encounters: 05/14/14 141/65 05/13/14 139/73 04/09/14 163/78 [facility] [phone] ETING COMMUNICATIONS MANAGER documented in this encounter Plan of Treatment Not on filedocumented as of this encounter Visit Diagnoses Diagnosis HTN (hypertension) - Primary Unspecified essential hypertension documented in this encounter Care Teams Sales Representative Consultant Relationship Specialty Start Date End Date Momo Forbes PCP - General Family Practice 01/02/14 [facility] [address] [place] [address] Ingrid Santana, RN Registered Nurse Transplant 02/10/12 10/01/15 documented as of this encounter
--- OUTSIDE RECORDS SUMMARY | 2022-04-29 12:19 | XMS_ITS | Encounter Summary ---
:1950 Author Organization [place] Address [facility] [place] [address] Care Team Providers Name Role Phone Ingrid Santana RN Unavailable Momo Forbes Primary Care Provider Reason for Visit Reason Onset Date Comments Refill Request 09/06/2014 [facility] Encounter Details Date Type Department Care Team Description 09/06/2014 Refill The Transplant Deysi Burns, Refill Request ([facility] 2nd Floor, Clinic 2A MD Plus) Tommy Wilburn [facility] Building [address] [place] [phone] [place] [address] [place] [address] Social History Tobacco Use Types [...] Fill Date: 02/08/14 Quantity: 100 Michael [facility] [phone] ER ENGINEER documented in this encounter Plan of Treatment Not on filedocumented as of this encounter Visit Diagnoses Diagnosis S/P kidney transplant - Primary Kidney replaced by transplant documented in this encounter Care Teams E Mail System Administrator Relationship Specialty Start Date End Date Momo Forbes PCP - General Family Practice 01/02/14 [place] [id number] Ingrid Santana, RN Registered Nurse Transplant 02/10/12 10/01/15 documented as of this encounter
--- OUTSIDE RECORDS SUMMARY | 2022-04-29 12:19 | XMS_ITS | Encounter Summary ---
:1950 Author Organization [place] Address [address] [place] [address]. [place] [address] Care Team Providers Name Role Phone Ingrid Santana RN Unavailable Momo Forbes Primary Care Provider Encounter Details Date Type Department Care Team Description 10/18/2014 External Order Results The Transplant Ce ntjakob Nurse, [facility] 2nd Floor, Clinic [address]A [address] [address] Social History Tobacco Use [...] 8:15 AM Results f or this RESULTS PRISM MEASURER procedure are i n the results section. documented in this encounter Results (ABNORMAL) TXP External Lab Result (10/17/2014 8:15 AM PRISM MEASURER) Analysis Performed At Patho logist Time Signature [...] 56 (L) >60 LABDE SCAN (if ml/min/1.7 Czech) 3m2 (External) GFR Estimated 46 (L) >60 [...] / / Volume Laterality 10/17/2014 8:15 AM PRISM MEASURER Narrative JESSICA PFT - 10/18/2014 8:50 AM PRISM MEASURER Verified by Maribel Plunkett on 10/18/19 15. Patient Reported LABORATORY Performing Organization Address City/State/ZIP Code Phon e Number [facility] LABDE SCAN documented in this encounter Visit Diagnoses Not on filedocumented in this encounter Care Teams Medical Administrative Relationship Specialty Start Date End Date Momo Forbes PCP - General Family Practice 01/02/14 [facility] [address] [place] [address] Ingrid Santana, RN Registered Nurse Transplant 02/10/12 10/01/15 documented as of this encounter
--- OUTSIDE RECORDS SUMMARY | 2022-04-29 12:19 | XMS_ITS | Encounter Summary ---
:1950 Author Organization [place] Address [address] [place] [address]. [place] [address] Care Team Providers Name Role Phone Momo Forbes Primary Care Provider Reason for Visit Reason Onset Date Comments Transplant 02/19/2016 refill Encounter Details Date Type Department Care Team Description 02/19/2016 Refill The Transplant Deysi Burns MD Transplant (refill) 2nd Floor, Clinic 2A [phone] [place] [address] [facility] [address] Social History Tobacco Use Types [...] documented in this encounter Care Teams Printer Assistant Relationship Specialty Start Date End Date Momo Forbes PCP - General Family Practice 01/02/14 [facility] 1999 [place], [place] [phone] documented as of this encounter
--- OUTSIDE RECORDS SUMMARY | 2022-04-29 12:19 | XMS_ITS | Encounter Summary ---
:1950 Author Organization [place] Address [facility] [place] [address] Care Team Providers Name Role Phone Ingrid Santana RN Unavailable Momo Forbes Primary Care Provider Joseph Quintana MD Unavailable Encounter Details Date Type Department Care Team Description 11/07/2014 External Order Results The Transplant Ce nter Nurse, [facility] 2nd Floor, Clinic 2A [address] [phone] Social History Tobacco Use Types Packs/Day Years [...] (11/05/2014 8:32 AM CDT) Analysis Performed At [facility] Time Signature Sodium 140 135 - [...] Estimated >60 >60 LABDE SCAN (if ml/min/1.7 Salvadorean) 3m2 (External) GFR Estimated 51 (L) >60 [...] on filedocumented in this encounter Care Teams Sawmill Production Worker Relationship Specialty Start Date End Date Momo Forbes PCP - General Family Practice 01/02/14 [facility] 1999 [place] [address] Ingrid Santana, RN Registered Nurse Transplant 02/10/12 10/01/15 Joseph Quintana, Assigned Nephrology 03/29/21 MD Provider [address] [place] [address] 1932 [place], [place] [phone] documented as of this encounter
--- OUTSIDE RECORDS SUMMARY | 2022-04-29 12:19 | XMS_ITS | Encounter Summary ---
:1950 Author Organization [place] Address [facility] [place] [address] Care Team Providers Name Role Phone Ingrid Santana RN Unavailable Momo Forbes Primary Care Provider Joseph Quintana MD Unavailable Encounter Details Date Type Department Care Team Description 08/28/2014 External Order Results The Transplant Ce nter Nurse, [facility] 2nd Floor, Clinic 2A [address] [address] Social History Tobacco Use Types [...] 08/26/2014 10:25 AM Results for this RESULTS MESSENGER COPY procedure are i n the results section. documented in this encounter Results (ABNORMAL) TXP External Lab Result (08/26/2014 10:25 AM MESSENGER COPY) Analysis Performed At [facility] Time Signature Sodium 139 135 [...] 58 (L) >60 LABDE SCAN (if ml/min/1.7 Latvian) 3m2 (External) GFR Estimated 48 (L) >60 [...] / / Volume Laterality 08/26/2014 10:25 AM MESSENGER COPY Narrative JESSICA PFT - 08/28/2014 4:34 PM MESSENGER COPY Verified by Freddy Mehta on 08/28. Patient Reported LABORATORY Performing Organization Address City/State/ZIP Code Phon e Number [facility] LABDE SCAN documented in this encounter Visit Diagnoses Not on filedocumented in this encounter Care Teams Echo Tech Relationship Specialty Start Date End Date Momo Forbes PCP - General Family Practice 01/02/14 [facility] [address] [place] [address] Ingrid Santana, RN Registered Nurse Transplant 02/10/12 10/01/15 Joseph Quintana, Assigned Nephrology 03/29/21 MD Provider [address] [place] [address] [place] [id number] documented as of this encounter
--- OUTSIDE RECORDS SUMMARY | 2022-04-29 12:19 | XMS_ITS | Encounter Summary ---
:1950 Author Organization [place] Address [address] [place] [address] Care Team Providers Name Role Phone Ingrid Santana RN Unavailable Momo Forbes Primary Care Provider Encounter Details Date Type Department Care Team Description 12/20/2014 Orders Only [facility], Joseph [facility], [facility] jm [place] [address] [phone] [place] [address] 911 [place] [address] (Wo rk) Social History Tobacco [...] Tacrolimus Last 12/24/14 [facility] Dose 2130 [facility] Tacrolimus 9.5 5.0 - [facility] 15.0 ug/L [facility] Comment: Tacrolimus [...] its perform ance characteristics determined by the [facility], ??Special Chemistry Laboratory. It has [...] Phon e Number [facility] [address] documented in this encounter Visit Diagnoses Not on filedocumented in this encounter Care Teams Home Economics Extension Worker Relationship Specialty Start Date End Date Momo Forbes PCP - General Family Practice 01/02/14 [facility] 1999 [place] [address] Ingrid Santana, RN Registered Nurse Transplant 02/10/12 10/01/15 documented as of this encounter
--- OUTSIDE RECORDS SUMMARY | 2022-04-29 12:19 | XMS_ITS | Encounter Summary ---
:1950 Author Organization [place] Address [address] [place] [address] Care Team Providers Name Role Phone Ingrid Santana RN Unavailable Momo Forbes Primary Care Provider Reason for Visit Reason Onset Date Comments Medication Question 09/12/2014 Encounter Details Date Type Department Care Team Description 09/12/2014 Telephone U [facility] Beny Staton RPH Medication Question 500 [facility] [place] [address] PHARMACY [phone] [place], [place] [phone] Social History Tobacco Use Types Packs/Day Years [...] his dr told himhis bp was good. R FOAM RUBBER documented in this encounter Plan of Treatment Not on filedocumented as of this encounter Visit Diagnoses Not on filedocumented in this encounter Care Teams Fingernail Sculptor Relationship Specialty Start Date End Date Momo Forbes PCP - General Family Practice 01/02/14 [facility] [address] [place] [address] Ingrid Santana, RN Registered Nurse Transplant 02/10/12 10/01/15 documented as of this encounter
--- OUTSIDE RECORDS SUMMARY | 2022-04-29 12:19 | XMS_ITS | Encounter Summary ---
:1950 Author Organization [place] Address [facility] [place] [address] Care Team Providers Name Role Phone Ingrid Santana RN Unavailable Momo Forbes Primary Care Provider Reason for Referral Consultation - Closed Specialty Diagnoses / Procedures Referred By Contact Refer red To Contact Diagnoses Morbid obesity due to excess calories (H) Deysi Alicea MD [facility] [address] [place] [address] Referral ID Status Reason Start Date Expiration Date Visits Requ ested Visits Authorized [id number] Closed 09/02/2015 09/01/2016 1 1 WAXER Reason for Visit Reason Comments RECHECK Follow up Kidney TX 4 Encounter Details Date Type Department Care Team Description 09/02/2015 Office Visit Nephrology Deysi Alicea, S/P kidney transplant (Prima ry Dx); 2nd Floor, Clinic 2A Morbid obesity due to excess calories (H ) Tommy Wilburn [address] [place] [phone] [place] [address] (Wo rk) [address] [phone] Social History Tobacco Use Types Packs/Day Years [...] Comments Blood Pressure 128/72 09/02/2015 4:32 PM LAST WAXER Pulse 61 09/02/2015 4:32 PM LAST WAXER Temperature 36.7 ??C (98 ??F) 09/02/2015 4:32 PM LAST WAXER Respiratory Rate - - Oxygen Saturation 94% 09/02/2015 4:32 PM LAST WAXER Inhaled Oxygen Concentration - - Weight 141.8 kg (312 lb 9.6 oz) 09/02/2015 4:32 PM LAST WAXER Height 182.9 cm (6' 0.01) 09/02/2015 4:32 PM LAST WAXER Body Mass Index 42.39 09/02/2015 4:32 PM LAST WAXER documented in this encounter Progress Notes Deysi [...] discharged on Cumadin; Cumadin was stopped by automotive engineer during the follow up visit, as he [...] Years of Education: 14 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 BP completed using cuff size: large WAXER documented in this encounter Plan of Treatment [...] ) documented in this encounter Care Teams Business Development Coordinator Relationship Specialty Start Date End Date Momo Frobes PCP - General Family Practice 01/02/14 [facility] [address] [place] [address] Ingrid Santana, RN Registered Nurse Transplant 02/10/12 10/01/15 documented as of this encounter
--- OUTSIDE RECORDS SUMMARY | 2022-04-29 12:19 | XMS_ITS | Encounter Summary ---
:1950 Author Organization [place] Address [address] [place] [address]. [place] [address] Care Team Providers Name Role Phone Momo Forbes Primary Care Provider Reason for Visit Reason Onset Date Comments Transplant Pharmacy Medication Review 02/05/2016 Encounter Details Date Type Department Care Team Description 02/05/2016 Telephone [facility] Nani Humphrey, [facility] Transplant Pharmacy 500 [facility] [place] [address] [place] [phone] [place] [address] (Wo rk) Social History Tobacco Use Types [...] on filedocumented in this encounter Care Teams Wheelage Clerk Relationship Specialty Start Date End Date Momo Forbes PCP - General Family Practice 01/02/14 [facility] 1999 [place] [address] documented as of this encounter
--- OUTSIDE RECORDS SUMMARY | 2022-04-29 12:19 | XMS_ITS | Encounter Summary ---
:1950 Author Organization [place] Address [address] [place] [address]. [place] [address] Care Team Providers Name Role Phone Momo Forbes Primary Care Provider Reason for Visit Reason Onset Date Comments Transplant 01/16/2016 refill Encounter Details Date Type Department Care Team Description 01/16/2016 Refill The Transplant Deysi Burns MD Transplant (refill) 2nd Floor, Clinic 2A [phone] [place] [address] [facility] [place] [address] Social History Tobacco Use Types [...] transplant documented in this encounter Care Teams Shoes Salesperson Relationship Specialty Start Date End Date Momo Forbes PCP - General Family Practice 01/02/14 [facility] 1999 [place], [place] [phone] documented as of this encounter
--- OUTSIDE RECORDS SUMMARY | 2022-04-29 12:19 | XMS_ITS | Encounter Summary ---
:1950 Author Organization [place] Address [facility] [place] [address] Care Team Providers Name Role Phone Ingrid Santana RN Unavailable Momo Forbes Primary Care Provider Encounter Details Date Type Department Care Team Description 12/30/2014 Orders Only The Transplant Shiva Arias, RN -donor kidney 2nd Floor, Clinic 2A [facility] transplant recipient Tommy Guillermoteen [address] [facility] (Primary Dx) Building [address] [place] [address] [place] [address] Social History Tobacco Use Types [...] transplant documented in this encounter Care Teams Feeder Catcher Relationship Specialty Start Date End Date Momo Forbes PCP - General Family Practice 01/02/14 [facility] 1999 [place] [phone] Ingrid Santana, RN Registered Nurse Transplant 02/10/12 10/01/15 documented as of this encounter
--- OUTSIDE RECORDS SUMMARY | 2022-04-29 12:19 | XMS_ITS | Encounter Summary ---
:1950 Author Organization [place] Address [facility] [place] [address] Care Team Providers Name Role Phone Ingrid Santana RN Unavailable Momo Forbes Primary Care Provider Reason for Visit Reason Onset Date Comments Refill Request 04/21/2015 crestor Encounter Details Date Type Department Care Team Description 04/21/2015 Refill [facility] [address] Refill Request Physicians Orestes Hernandez MD (crestor) [facility] Building [place] 4th Floor, Clinic 4B [address] [phone] (Wo rk) [phone] Social History Tobacco Use Types Packs/Day Years [...] # refills: 11 Last Office Visit with [facility] primary care provider: 05/14/14 CHOL 126 02/06/2014 HDL 35 02/06/2014 LDL 71 02/06/2014 TRIG 100 02/06/2014 CHOLHDLRATIO 3.6 02/06/2014 Gayathri Orta [facility] [address] [facility] [address] documented in this encounter Plan of Treatment Not on filedocumented as of this encounter Visit Diagnoses Diagnosis DM (diabetes mellitus), type 2 (H) - Ana ashley Type II or unspecified type diabetes aung litus without mention of complication, not stated as uncontrolled Other and unspecified hyperlipidemia documented in this encounter Care Teams Sheep Herder Relationship Specialty Start Date End Date Momo Forbes PCP - General Family Practice 01/02/14 [facility] [address] [place] [address] Ingrid Santana, RN Registered Nurse Transplant 02/10/12 10/01/15 documented as of this encounter
--- OUTSIDE RECORDS SUMMARY | 2022-04-29 12:19 | XMS_ITS | Encounter Summary ---
:1950 Author Organization [place] Address [facility] [place] [address] Care Team Providers Name Role Phone Ingrid Santana RN Unavailable Momo Forbes Primary Care Provider Joseph Quintana MD Unavailable Encounter Details Date Type Department Care Team Description 08/06/2014 External Order Results The Transplant Ce nter Nurse, [facility] 2nd Floor, Clinic [address]A [address] [phone] Social History Tobacco Use Types Packs/Day Years [...] 8:39 AM Results f or this RESULTS MACHINE OR MACHINERY MECHANIC procedure are i n the results section. documented in this encounter Results (ABNORMAL) TXP External Lab Result (08/05/2014 8:39 AM MACHINE OR MACHINERY MECHANIC) [facility] Time Signature Sodium 137 135 - [...] 55 (L) >60 LABDE SCAN (if ml/min/1.7 Omani) 3m2 (External) GFR Estimated 45 (L) >60 [...] / / Volume Laterality 08/05/2014 8:39 AM MACHINE OR MACHINERY MECHANIC Narrative ZACHERYTYLER PFT - 08/06/2014 7:40 AM MACHINE OR MACHINERY MECHANIC Verified by Mary Whitehead on 08/06/2014. Patient Reported LABORATORY Performing Organization Address City/State/ZIP Code Phon e Number BREEZE PFT LABDE SCAN documented in this encounter Visit Diagnoses Not on filedocumented in this encounter Care Teams Security Professional Relationship Specialty Start Date End Date Momo Forbes PCP - General Family Practice 01/02/14 [facility] [address] [place] [address] Ingrid Santana, RN Registered Nurse Transplant 02/10/12 10/01/15 Joseph Quintana, Assigned Nephrology 03/29/21 MD Provider [address] [place] [address] [address] [place], [place] [id number] documented as of this encounter
--- OUTSIDE RECORDS SUMMARY | 2022-04-29 12:19 | XMS_ITS | Encounter Summary ---
:1950 Author Organization [place] Address [address] [place] [address]. [place] [address] Care Team Providers Name Role Phone Ingrid Santana RN Unavailable Momo Forbes Primary Care Provider Encounter Details Date Type Department Care Team Description 08/03/2014 Abstract The Transplant [facility] 2nd Floor, Clinic [address]A [address] [phone] Social History Tobacco Use [...] on filedocumented in this encounter Care Teams Rough And Truing Machine Operator Relationship Specialty Start Date End Date Momo Forbes PCP - General Family Practice 01/02/14 [facility] [address] [place] [address] Ingrid Santana RN Registered Nurse Transplant 02/10/12 10/01/15 documented as of this encounter
--- OUTSIDE RECORDS SUMMARY | 2022-04-29 12:19 | XMS_ITS | Encounter Summary ---
:1950 Author Organization [place] Address [facility] [place] [address] Care Team Providers Name Role Phone Ingrid Santana RN Unavailable Momo Forbes Primary Care Provider Reason for Visit Reason Onset Date Comments Transplant 08/08/2014 immunosuppression mckenzie trejo Encounter Details Date Type Department Care Team Description 08/08/2014 Refill Nephrology Shiva Kahn RN Transplant 2nd Floor, Clinic 2A [facility] (immunosuppression Sanders Wangensteen [address] [facility] management) Building [address] [place] [phone] Social History Tobacco Use Types Packs/Day Years [...] to lower Prograf dose to 1.5mg BID. ICAL THERAPY NURSE Telephone Encounter - Shiva Kahn RN - 08/08/2014 5:33 PM CST ISSUE: Tacrolimus level 9.0. New target tacrolimus levels 6-8 since patient is now 6 months post kidney transplant. PLAN: Decrease Prograf dose from 2 mg twice daily to 1.5 mg twice daily. TASK: Please call patient with instructions for dose change. ICAL THERAPY NURSE documented in this encounter Plan of Treatment Not on filedocumented as of this encounter Visit Diagnoses Diagnosis -donor kidney transplant recipie nt - Primary Kidney replaced by transplant documented in this encounter Care Teams Executive Services Administrator Relationship Specialty Start Date End Date Momo Forbes PCP - General Family Practice 01/02/14 [place] [address] Ingrid Santana, RN Registered Nurse Transplant 02/10/12 10/01/15 documented as of this encounter
--- OUTSIDE RECORDS SUMMARY | 2022-04-29 12:19 | XMS_ITS | Encounter Summary ---
:1950 Author Organization [place] Address [address] [place] [address]. [place] [address] Care Team Providers Name Role Phone Ingrid Santana RN Unavailable Momo Forbes Primary Care Provider Encounter Details Date Type Department Care Team Description 08/29/2015 Orders Only The Transplant Deepa Morgan Aftercare following organ tr ansplant (Primary Dx); 2nd Floor, Clinic 2A Saima Kidney replaced by transplan t; Tommy Wilburn [facility] for long-term current use of medication [address] [phone] Social History Tobacco Use Types [...] edication documented in this encounter Care Teams Collaborative Teacher Relationship Specialty Start Date End Date Momo Forbes PCP - General Family Practice 01/02/14 [facility] [address] [place] [address] Ingrid Santana, RN Registered Nurse Transplant 02/10/12 10/01/15 documented as of this encounter
--- OUTSIDE RECORDS SUMMARY | 2022-04-29 12:20 | XMS_ITS | Encounter Summary ---
:1950 Author Organization [place] Address Counts include 234 beds at the [facility]0 [facility] [place] [address] Care Team Providers Name Role Phone Ingrid Santana RN Unavailable Momo Forbes Primary Care Provider Encounter Details Date Type Department Care Team Description 05/20/2014 External Order Results The Transplant Ce ntjakob Nurse, [facility] 2nd Floor, Clinic [address]A [address] [phone] Social History Tobacco Use Types [...] 55 (L) >60 LABDE SCAN (if ml/min/1.7 Tanzanian) 3m2 (External) GFR Estimated 46 (L) >60 [...] on filedocumented in this encounter Care Teams Automotive Exhaust Emissions Technician Relationship Specialty Start Date End Date Momo Forbes PCP - General Family Practice 01/02/14 [facility] [address] [place] [address] Ingrid Santana, RN Registered Nurse Transplant 02/10/12 10/01/15 documented as of this encounter
--- OUTSIDE RECORDS SUMMARY | 2022-04-29 12:20 | XMS_ITS | Encounter Summary ---
:1950 Author Organization [place] Address [address] [place] [address]. [place] [address] Care Team Providers Name Role Phone Ingrid Santana RN Unavailable Momo Forbes Primary Care Provider Encounter Details Date Type Department Care Team Description 05/17/2014 Orders Only Nephrology Shiva Kahn RN -donor kidney 2nd Floor, Clinic 2A [facility] transplant recipient Tommy Mimateen [address] [place] [address] (Primary Dx) Building [address] [place] [phone] Social History Tobacco Use Types Packs/Day Years [...] transplant documented in this encounter Care Teams Knife Operator Relationship Specialty Start Date End Date Momo Forbes PCP - General Family Practice 01/02/14 [facility] [address] [place] [address] Ingrid Santana, RN Registered Nurse Transplant 02/10/12 10/01/15 documented as of this encounter
--- OUTSIDE RECORDS SUMMARY | 2022-04-29 12:20 | XMS_ITS | Encounter Summary ---
:1950 Author Organization [place] Address [facility] [place] [address] Care Team Providers Name Role Phone Ingrid Santana RN Unavailable Momo Forbes Primary Care Provider Joseph Quintana MD Unavailable Encounter Details Date Type Department Care Team Description 07/03/2014 External Order Results The Transplant Ce nter Nurse, [facility] 2nd Floor, Clinic [address]A [address] [phone] Social History Tobacco Use Types Packs/Day Years [...] 8:27 AM Results f or this RESULTS PLATE GLASS GRINDER procedure are i n the results section. documented in this encounter Results (ABNORMAL) TXP External Lab Result (07/01/2014 8:27 AM PLATE GLASS GRINDER) Analysis Performed At [facility] Time Signature Sodium 140 135 - 145 [...] 57 (L) >60 LABDE SCAN (if ml/min/1.7 Citizen Of [place]) 3m2 (External) GFR Estimated 47 (L) >60 [...] / / Volume Laterality 07/01/2014 8:27 AM PLATE GLASS GRINDER Narrative JESSICA PFT - 07/03/2014 2:18 PM PLATE GLASS GRINDER Verified by Xiomara Bello on 07/03/20 14. Patient Reported LABORATORY Performing Organization Address City/State/ZIP Code Phon e Number BREEZE PFT LABDE SCAN documented in this encounter Visit Diagnoses Not on filedocumented in this encounter Care Teams Horse Identifier Relationship Specialty Start Date End Date Momo Forbes PCP - General Family Practice 01/02/14 [facility] [address] [place] [address] Ingrid Santana, RN Registered Nurse Transplant 02/10/12 10/01/15 Joseph Quintana, Assigned Nephrology 03/29/21 MD Provider [address] [place] [address] [address] [place], [place] [id number] documented as of this encounter
--- OUTSIDE RECORDS SUMMARY | 2022-04-29 12:20 | XMS_ITS | Encounter Summary ---
:1950 Author Organization [place] Address [facility] [place] [address] Care Team Providers Name Role Phone Ingrid Santana RN Unavailable Momo Forbes Primary Care Provider Joseph Quintana MD Unavailable Encounter Details Date Type Department Care Team Description 05/27/2014 External Order Results The Transplant Ce nter Nurse, [facility] 2nd Floor, Clinic [address]A [address] [phone] Social History Tobacco Use Types Packs/Day Years [...] (05/24/2014 8:11 AM CDT) Analysis Performed At [facility] Time Signature Sodium 142 135 - [...] Estimated >60 >60 LABDE SCAN (if ml/min/1.7 Chilean) 3m2 (External) GFR Estimated 52 (L) >60 [...] filedocumented in this encounter Care Teams Motor Vehicle Salesperson Relationship Specialty Start Date End Date Momo Forbes PCP - General Family Practice 01/02/14 [facility] [address] [place] [address] Ingrid Santana, RN Registered Nurse Transplant 02/10/12 10/01/15 Joseph Quintana, Assigned Nephrology 03/29/21 MD Provider [address] [place] [address] [address] [facility] [address] [place] [address] documented as of this encounter
--- OUTSIDE RECORDS SUMMARY | 2022-04-29 12:20 | XMS_ITS | Encounter Summary ---
:1950 Author Organization [place] Address [facility] [place] [address] Care Team Providers Name Role Phone Ingrid Santana RN Unavailable Momo Forbes Primary Care Provider Joseph Quintana MD Unavailable Encounter Details Date Type Department Care Team Description 07/10/2014 External Order Results The Transplant Ce nter Nurse, [facility] 2nd Floor, Clinic 2A [address] [phone] Social History Tobacco Use Types Packs/Day Years [...] 8:17 AM Results f or this RESULTS PATIENT OMBUDSPERSON procedure are i n the results section. documented in this encounter Results (ABNORMAL) TXP External Lab Result (07/08/2014 8:17 AM PATIENT OMBUDSPERSON) [facility] Time Signature Sodium 138 135 [...] Estimated >60 >60 LABDE SCAN (if ml/min/1.7 Croatian) 3m2 (External) GFR Estimated 51 (L) >60 [...] / / Volume Laterality 07/08/2014 8:17 AM PATIENT OMBUDSPERSON Narrative JESSICA PFT - 07/10/2014 6:20 AM PATIENT OMBUDSPERSON Verified by Janee Alexis on 07/10/2014 . Patient Reported LABORATORY Performing Organization Address City/State/ZIP Code Phon e Number BREEZE PFT LABDE SCAN documented in this encounter Visit Diagnoses Not on filedocumented in this encounter Care Teams Sheet Rock Applicator Relationship Specialty Start Date End Date Momo Forbes PCP - General Family Practice 01/02/14 [facility] [address] [place] [address] Ingrid Santana, RN Registered Nurse Transplant 02/10/12 10/01/15 Joseph Quintana, Assigned Nephrology 03/29/21 MD Provider [address] [place] [address] [address] [place] [address] documented as of this encounter
--- OUTSIDE RECORDS SUMMARY | 2022-04-29 12:20 | XMS_ITS | Encounter Summary ---
:1950 Author Organization [place] Address [facility] [place] [address] Care Team Providers Name Role Phone Ingrid Santana RN Unavailable Momo Forbes Primary Care Provider Reason for Visit Reason Comments RECHECK 3 month Tx follow Up Encounter Details Date Type Department Care Team Description 05/13/2014 Office Visit Nephrology Deysi Alicea, DM (diabetes mellitus), type 2 (H) (Primary Dx); 2nd Floor, Clinic 2A S/P kidney transplant Tommy Wilburn [address] [phone] (Wo rk) [phone] Social History Tobacco Use Types Packs/Day Years [...] discharged on Cumadin; Cumadin was stopped by developer designer during the follow up visit, as he [...] Years of Education: 14 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
--- OUTSIDE RECORDS SUMMARY | 2022-04-29 12:20 | XMS_ITS | Encounter Summary ---
:1950 Author Organization [place] Address [facility] [place] [address] Care Team Providers Name Role Phone Ingrid Santana RN Unavailable Momo Forebs Primary Care Provider Reason for Visit Reason Onset Date Comments Transplant 06/20/2014 FK 6.6 Encounter Details Date Type Department Care Team Description 06/20/2014 Telephone Nephrology Carmelita Rosario, Transplant (FK 6.6) 2nd Floor, Clinic 2A BOGDAN Wilburn [place] [phone] Social History Tobacco Use Types Packs/Day [...] documented in this encounter Care Teams Stone Hand Relationship Specialty Start Date End Date Momo Forbes PCP - General Family Practice 01/02/14 [facility] [address] [place] [address] Ingrid Santana, BOGDAN Registered Nurse Transplant 02/10/12 10/01/15 documented as of this encounter
--- OUTSIDE RECORDS SUMMARY | 2022-04-29 12:20 | XMS_ITS | Encounter Summary ---
:[address] Address [address] [place] [address] Care Team Providers Name Role Phone Ingrid Santana RN Unavailable Momo Forbes Primary Care Provider Encounter Details Date Type Department Care Team Description 07/22/2014 Orders Only [facility], [facility], [facility] [address] [phone] [place] [address] 852 [place] [address] (Wo rk) Social History Tobacco [...] AM Resul ts for this SINGLE ANTIGEN ENTRY ENGINEER procedure are in the results section. HLA LUKASZ CLASS I Routine 07/29/2014 8:20 AM Result s for this SINGLE ANTIGEN ENTRY ENGINEER procedure are in the results section. TACROLIMUS BY TANDEM Routine 07/29/2014 8:20 AM R esults for this MASS SPECTROMETRY ENTRY ENGINEER procedure are in the results section. TACROLIMUS BY TANDEM Routine 07/22/2014 8:20 AM R esults for this MASS SPECTROMETRY ENTRY ENGINEER procedure are in the results section. documented in this encounter Results HLA Lukasz Class II Single Antigen (07/29/2014 8:20 AM ENTRY ENGINEER) [facility] Simphatic Method Time Signature SA2 Test SA HI [...] Volume Laterality 07/29/2014 8:20 AM 4 3:26 ENTRY ENGINEER PM ENTRY ENGINEER Deysi Alicea MD LAB - IMMUNOLOGY ORDERABLES Performing Organization Address City/State/ZIP Code Phon e Number [facility] Immunology/Histocompatabil [place], [place] [address] [facility] [address] [facility] [address] Building, Room 3-580 HISTOTRAC HLA Lukasz Class I Single Antigen (07/29/2014 8:20 AM ENTRY ENGINEER) [facility] Time Signature SA1 Test SA HI [...] Volume Laterality 07/29/2014 8:20 AM 4 3:26 ENTRY ENGINEER PM ENTRY ENGINEER Deysi Alicea MD LAB - IMMUNOLOGY ORDERABLES Performing Organization Address City/State/ZIP Code Phon e Number [facility] Immunology/Histocompatabil [place] [phone] [facility] [address] [facility] [address] Building, Room 3-580 HISTOTRAC Tacrolimus level (07/29/2014 8:20 AM ENTRY ENGINEER) [facility] gist Method Time Signature Tacrolimus Last 1999 [facility] Dose 07/28/14 [facility] Tacrolimus 10.5 5.0 - [facility] Level 15.0 ug/L [facility] Comment: Tacrolimus Reference Range Kidney [...] / Volume Laterality 07/29/2014 8:20 AM 4 ENTRY ENGINEER 11:17 AM ENTRY ENGINEER Deysi Alicea MD LAB - BLOOD ORDERABLES Performing Organization Address City/State/ZIP Code Phon e Number [facility] [address] [place], [place] [phone] [place] [address] [facility] Tacrolimus level (07/22/2014 8:20 AM ENTRY ENGINEER) [facility] gist Method Time Signature Tacrolimus Last 1929 [facility] Dose 07/21/14 [facility] Tacrolimus 10.8 5.0 - [facility] Level 15.0 ug/L [facility] Comment: Tacrolimus Reference Range Kidney [...] / Volume Laterality 07/22/2014 8:20 AM 4 ENTRY ENGINEER 11:45 AM ENTRY ENGINEER Deysi Alicea MD LAB - BLOOD ORDERABLES Performing Organization Address City/State/ZIP Code Phon e Number [facility] [address] [place], [place] [phone] [place] [address] LABS documented in this encounter Visit Diagnoses Not on filedocumented in this encounter Care Teams Waste Cotton Cleaner Relationship Specialty Start Date End Date Momo Forbes PCP - General Family Practice 01/02/14 [facility] [address] [place] [address] Ingrid Santana, RN Registered Nurse Transplant 02/10/12 10/01/15 documented as of this encounter
--- OUTSIDE RECORDS SUMMARY | 2022-04-29 12:20 | XMS_ITS | Encounter Summary ---
:1950 Author Organization [place] Address [address] [facility] [place] [address] Care Team Providers Name Role Phone Ingrid Santana RN Unavailable Momo Forbes Primary Care Provider Reason for Visit Reason Onset Date Comments Medication Question 07/26/2014 Encounter Details Date Type Department Care Team Description 07/26/2014 Telephone PHARMACY Duncan, Fina, [facility] Medication Question [address] [facility] [place] [phone] [facility] [facility] [phone] [place] [address] Social History Tobacco Use Types [...] very well healthy and happy Beny [place]on [facility] Specialty Pharmacist [phone] EMAN documented in this encounter Plan of Treatment Not on filedocumented as of this encounter Visit Diagnoses Not on filedocumented in this encounter Care Teams Wireless Manager Relationship Specialty Start Date End Date Momo Forbes PCP - General Family Practice 01/02/14 [facility] [address] [place] [address] Ingrid Santana, RN Registered Nurse Transplant 02/10/12 10/01/15 documented as of this encounter
--- OUTSIDE RECORDS SUMMARY | 2022-04-29 12:20 | XMS_ITS | Encounter Summary ---
:1950 Author Organization [place] Address [address] [place] [address] Care Team Providers Name Role Phone Ingrid Santana RN Unavailable Momo Forbes Primary Care Provider Encounter Details Date Type Department Care Team Description 06/22/2014 Orders Only [facility], Joseph [facility], [facility] jm [place] [address] [phone] [place] [address] 436 [place] [address] (Wo rk) Social History Tobacco [...] AM R esults for this MASS SPECTROMETRY CARPENTERS SUPERVISOR procedure are in the results section. TACROLIMUS BY TANDEM Routine 07/08/2014 8:15 AM R esults for this MASS SPECTROMETRY CARPENTERS SUPERVISOR procedure are in the results section. TACROLIMUS BY TANDEM Routine 07/01/2014 8:25 AM R esults for this MASS SPECTROMETRY CARPENTERS SUPERVISOR procedure are in the results section. TACROLIMUS BY TANDEM Routine 06/24/2014 8:30 AM R esults for this MASS SPECTROMETRY CARPENTERS SUPERVISOR procedure are in the results section. documented in this encounter Results Tacrolimus level (07/15/2014 8:25 AM CARPENTERS SUPERVISOR) [facility] Method Time Signature Tacrolimus Last 07/14/14 [facility] Dose 2000 [facility] Tacrolimus 8.1 5.0 - [facility] Level 15.0 ug/L [facility] Comment: Tacrolimus Reference Range [...] / Volume Laterality 07/15/2014 8:25 AM 4 CARPENTERS SUPERVISOR 10:56 AM CARPENTERS SUPERVISOR Deysi Alicea MD LAB - BLOOD ORDERABLES Performing Organization Address City/State/ZIP Code Phon e Number [facility] 500 [place] [address] [facility] Tacrolimus level (07/08/2014 8:15 AM CARPENTERS SUPERVISOR) [facility] Method Time Signature Tacrolimus Last 1999 [facility] Dose 07/07/14 [facility] Tacrolimus 8.6 5.0 - [facility] Level 15.0 ug/L [facility] Comment: Tacrolimus Reference Range [...] / Volume Laterality 07/08/2014 8:15 AM 4 CARPENTERS SUPERVISOR 11:03 AM CARPENTERS SUPERVISOR Deysi Alicea MD LAB - BLOOD ORDERABLES Performing Organization Address City/State/ZIP Code Phon e Number [facility] 500 [place] [address] [facility] Tacrolimus level (07/01/2014 8:25 AM CARPENTERS SUPERVISOR) [facility] Method Time Signature Tacrolimus Last 1999, [facility] Dose 06/30/14 [facility] Tacrolimus 9.3 5.0 - [facility] Level 15.0 ug/L [facility] Comment: Tacrolimus Reference Range [...] / Volume Laterality 07/01/2014 8:25 AM 4 CARPENTERS SUPERVISOR 12:11 PM CARPENTERS SUPERVISOR Mingo Dangelo MD LAB - BLOOD ORDERABLES Performing Organization Address City/State/ZIP Code Phon e Number [facility] [address] [place] [address] [facility] Tacrolimus level (06/24/2014 8:30 AM CARPENTERS SUPERVISOR) [facility] Method Time Signature Tacrolimus Last 1999 [facility] Dose 06/23/14 [facility] Tacrolimus 10.5 5.0 - [facility] Level 15.0 ug/L [facility] Comment: Tacrolimus Reference Range [...] / Volume Laterality 06/24/2014 8:30 AM 4 CARPENTERS SUPERVISOR 11:18 AM CARPENTERS SUPERVISOR Deysi Alicea MD LAB - BLOOD ORDERABLES Performing Organization Address City/State/ZIP Code Phon e Number [facility] [address] [place] [address] [facility] documented in this encounter Visit Diagnoses Not on filedocumented in this encounter Care Teams Medic Technician Relationship Specialty Start Date End Date Momo Forbes PCP - General Family Practice 01/02/14 [facility] [address] [place] [address] Ingrid Santana, RN Registered Nurse Transplant 02/10/12 10/01/15 documented as of this encounter
--- OUTSIDE RECORDS SUMMARY | 2022-04-29 12:20 | XMS_ITS | Encounter Summary ---
:1950 Author Organization [place] Address [facility] [place] [address] Care Team Providers Name Role Phone Ingrid Santana RN Unavailable Momo Forbes Primary Care Provider Encounter Details Date Type Department Care Team Description 06/17/2014 External Order Results The Transplant Ce ntjakob Nurse, [facility] 2nd Floor, Clinic [address] [phone] Social History Tobacco Use Types [...] 57 (L) >60 LABDE SCAN (if ml/min/1.7 Australian) 3m2 (External) GFR Estimated 47 (L) >60 [...] filedocumented in this encounter Care Teams Practice Nurse Relationship Specialty Start Date End Date Momo Forbes PCP - General Family Practice 01/02/14 [facility] [address] [place] [address] Ingrid Santana, RN Registered Nurse Transplant 02/10/12 10/01/15 documented as of this encounter
--- OUTSIDE RECORDS SUMMARY | 2022-04-29 12:20 | XMS_ITS | Encounter Summary ---
:1950 Author Organization [place] Address [facility] [place] [address] Care Team Providers Name Role Phone Ingrid Santana RN Unavailable Momo Forbes Primary Care Provider Joseph Quintana MD Unavailable Encounter Details Date Type Department Care Team Description 07/25/2014 External Order Results The Transplant Ce nter Nurse, [facility] 2nd Floor, Clinic [address]A [address] [phone] Social History Tobacco Use Types Packs/Day Years [...] 8:22 AM Results f or this RESULTS CANDY CATCHER procedure are i n the results section. documented in this encounter Results (ABNORMAL) TXP External Lab Result (07/22/2014 8:22 AM CANDY CATCHER) [facility] Sodium 140 135 - [...] 52 (L) >60 LABDE SCAN (if ml/min/1.7 Ethiopian) 3m2 (External) GFR Estimated 43 (L) >60 [...] / / Volume Laterality 07/22/2014 8:22 AM CANDY CATCHER Narrative JESSICA PFT - 07/25/2014 6:19 AM CANDY CATCHER Verified by Janee Alexis on 07/25/2014 . Patient Reported LABORATORY Performing Organization Address City/State/ZIP Code Phon e Number [facility] LABDE SCAN documented in this encounter Visit Diagnoses Not on filedocumented in this encounter Care Teams Business Practices Officer Relationship Specialty Start Date End Date Momo Forbes PCP - General Family Practice 01/02/14 [facility] [address] [place] [address] Ingrid Santana, RN Registered Nurse Transplant 02/10/12 10/01/15 Joseph Quintana, Assigned Nephrology 03/29/21 MD Provider [address] [place] [address] 1932 [place] [address] documented as of this encounter
--- OUTSIDE RECORDS SUMMARY | 2022-04-29 12:20 | XMS_ITS | Encounter Summary ---
:1950 Author Organization [place] Address [facility] [place] [address] Care Team Providers Name Role Phone Ingrid Santana RN Unavailable Momo Forbes Primary Care Provider Joseph Quintana MD Unavailable Encounter Details Date Type Department Care Team Description 07/17/2014 External Order Results The Transplant Ce nter Nurse, [facility] 2nd Floor, Clinic [address]A [address] [phone] Social History Tobacco Use Types Packs/Day Years [...] 8:28 AM Results f or this RESULTS CORPORATE STRATEGY INTERN procedure are i n the results section. documented in this encounter Results (ABNORMAL) TXP External Lab Result (07/15/2014 8:28 AM CORPORATE STRATEGY INTERN) [facility] Time Signature Sodium 138 135 - [...] 60 (L) >60 LABDE SCAN (if ml/min/1.7 Ecuadorean) 3m2 (External) GFR Estimated 49 (L) >60 [...] / / Volume Laterality 07/15/2014 8:28 AM CORPORATE STRATEGY INTERN Narrative ZACHERYTYLER PFT - 07/17/2014 8:35 AM CORPORATE STRATEGY INTERN Verified by Maribel Plunkett on 07/17/20 14. Patient Reported LABORATORY Performing Organization Address City/State/ZIP Code Phon e Number [facility] LABDE SCAN documented in this encounter Visit Diagnoses Not on filedocumented in this encounter Care Teams Residential Instructor Relationship Specialty Start Date End Date Momo Forbes PCP - General Family Practice 01/02/14 [facility] [address] [place] [address] Ingrid Santana, RN Registered Nurse Transplant 02/10/12 10/01/15 Joseph Quintana, Assigned Nephrology 03/29/21 MD Provider [address] [place] [address] [address] [place], [place] [id number] documented as of this encounter
--- OUTSIDE RECORDS SUMMARY | 2022-04-29 12:20 | XMS_ITS | Encounter Summary ---
:1950 Author Organization [place] Address [facility] [place] [address] Care Team Providers Name Role Phone Ingrid Santana RN Unavailable Momo Forbes Primary Care Provider Encounter Details Date Type Department Care Team Description 06/07/2014 External Order Results The Transplant Ce ntjakob Nurse, [facility] 2nd Floor, Clinic [address]A [address] [phone] Social History Tobacco Use Types [...] External Lab Result (06/05/2014 8:30 AM CDT) [facility] Method Time Signature Sodium (External) 138 [...] on filedocumented in this encounter Care Teams Corsetier Relationship Specialty Start Date End Date Momo Forbes PCP - General Family Practice 01/02/14 [facility] [address] [place] [phone] Ingrid Santana, RN Registered Nurse Transplant 02/10/12 10/01/15 documented as of this encounter
--- OUTSIDE RECORDS SUMMARY | 2022-04-29 12:20 | XMS_ITS | Encounter Summary ---
:1950 Author Organization [place] Address [address] [place] [address]. [place] [address] Care Team Providers Name Role Phone Ingrid Santana RN Unavailable Momo Forbes Primary Care Provider Encounter Details Date Type Department Care Team Description 05/27/2014 Orders Only Nephrology Shiva Kahn RN -donor kidney 2nd Floor, Clinic 2A [facility] transplant recipient Tommy Mimateen [address] [place] [address] [place] [phone] Social History Tobacco Use Types Packs/Day Years [...] transplant documented in this encounter Care Teams Fruit Preserver Relationship Specialty Start Date End Date Momo Forbes PCP - General Family Practice 01/02/14 [facility] [address] [place] [address] Ingrid Santana RN Registered Nurse Transplant 02/10/12 10/01/15 documented as of this encounter
--- OUTSIDE RECORDS SUMMARY | 2022-04-29 12:20 | XMS_ITS | Encounter Summary ---
:1950 Author Organization [place] Address [facility] [address] Care Team Providers Name Role Phone Ingrid Santana RN Unavailable Momo Forbes Primary Care Provider Reason for Visit Reason Onset Date Comments Pre Visit Planning - Done 05/13/2014 6 week f/u pos t op afib. medication changes last visit. Encounter Details Date Type Department Care Team Description 05/13/2014 PRE VISIT [facility] [address] Pre Visit Planning - Physicians Orestes Hernandez MD Done (6 week f/u post [facility] op afib. medication Building [place] changes last visit. ) 4th Floor, Clinic 4B [phone] [place] [address] (Wo rk) [phone] Social History Tobacco Use Types Packs/Day Years [...] on filedocumented in this encounter Care Teams Heading Matcher And Assembler Relationship Specialty Start Date End Date Momo Forbes PCP - General Family Practice 01/02/14 [facility] 2000 [place] [address] Ingrid Santana RN Registered Nurse Transplant 02/10/12 10/01/15 documented as of this encounter
--- OUTSIDE RECORDS SUMMARY | 2022-04-29 12:20 | XMS_ITS | Encounter Summary ---
:1950 Author Organization [place] Address [address] [place] [address] Care Team Providers Name Role Phone Ingrid Santana RN Unavailable Momo Forbes Primary Care Provider Encounter Details Date Type Department Care Team Description 05/22/2014 Orders Only [facility], Joseph [facility], [facility] jm [place] [address] [phone] [place] [address] [address] [place] [address] (Wo rk) Social History Tobacco [...] Results Tacrolimus level (06/17/2014 8:05 AM CDT) [facility] Method Time Signature Tacrolimus Last 06/16/14 [facility] Dose 2000 [facility] Tacrolimus 6.5 5.0 - [facility] Level 15.0 ug/L [facility] Comment: Tacrolimus Reference Range Kidney Transplant [...] e Number [facility] 500 [place], [place] [phone] [place] [address] [facility] Tacrolimus level (06/10/2014 7:52 AM CDT) [facility] gist Method Time Signature Tacrolimus Last 1999 [facility] Dose 06/09/14 [facility] Tacrolimus 7.9 5.0 - [facility] Level 15.0 ug/L [facility] Comment: Tacrolimus Reference Range Kidney Transplant [...] e Number [facility] 500 [place], [place] [phone] [place] [address] [facility] Tacrolimus level (06/05/2014 8:28 AM CDT) [facility] gist Method Time Signature Tacrolimus Last 1999 [facility] Dose 06/04/14 [facility] Tacrolimus 7.9 5.0 - [facility] Level 15.0 ug/L [facility] Comment: Tacrolimus Reference Range Kidney Transplant [...] - BLOOD ORDERABLES Performing Organization Address City/[facility]/ZIP Code Phon e Number [facility] [address] LABS Tacrolimus level (05/24/2014 8:05 AM CDT) [facility] gist Method Time Signature Tacrolimus 05/23/14 [facility] Last Dose 20:00 [facility] Tacrolimus Test 5.0 - [facility] Level canceled - 15.0 ug/L [facility] order [facility] entry error Specimen Anatomical Collection Method Collection Time Receive d Time (Source) Location / / Volume Laterality 05/24/2014 8:05 AM 4 2:49 CDT PM CDT Deysi Alicea MD LAB - BLOOD ORDERABLES Performing Organization Address City/State/ZIP Code Phon e Number [facility] [address] LABS Tacrolimus level (05/24/2014 8:05 AM CDT) [facility] gist Method Time Signature Tacrolimus Last 05/23/14 [facility] Dose 20:00 [facility] Tacrolimus 5.8 5.0 - [facility] Level 15.0 ug/L [facility] Comment: Tacrolimus Reference Range Kidney Transplant [...] e Number [facility] 500 [place], [place] [phone] [place] [address] LABS documented in this encounter Visit Diagnoses Not on filedocumented in this encounter Care Teams Screw Eye Assembler Relationship Specialty Start Date End Date Momo Forbes PCP - General Family Practice 01/02/14 [facility] [address] [place] [address] Ingrid Santana, RN Registered Nurse Transplant 02/10/12 10/01/15 documented as of this encounter
--- OUTSIDE RECORDS SUMMARY | 2022-04-29 12:20 | XMS_ITS | Encounter Summary ---
:1950 Author Organization [place] Address [facility] [place] [address] Care Team Providers Name Role Phone Ingrid Santana RN Unavailable Momo Forbes Primary Care Provider Reason for Visit Reason Comments Heart Problem 6 week F/U Encounter Details Date Type Department Care Team Description 05/14/2014 Office Visit [facility] TylerRonna, Unspecified es sential [place] [facility] Kei Hernandez, shanon carey (Primary Heart MD Dx) Tommy Wilburn [facility] Building [place] 4th Floor, Clinic [address]B [address] [address] [phone] [place], [place] (Work) [address] [phone] Social History Tobacco Use Types Packs/Day Years [...] questions or concerns. Rubi Howell RN Cardiology Shoe Associate documented in this encounter Progress Notes Kei [...] ramirez documented in this encounter Care Teams Private Investigator Relationship Specialty Start Date End Date Momo Forbes PCP - General Family Practice 01/02/14 [place] [phone] Ingrid Santana, RN Registered Nurse Transplant 02/10/12 10/01/15 documented as of this encounter
--- OUTSIDE RECORDS SUMMARY | 2022-04-29 12:20 | XMS_ITS | Encounter Summary ---
:1950 Author Organization [place] Address [facility] [place] [address] Care Team Providers Name Role Phone Ingrid Santana RN Unavailable Momo Forbes Primary Care Provider Joseph Quintana MD Unavailable Encounter Details Date Type Department Care Team Description 05/16/2014 External Order Results The Transplant Ce nter Nurse, [facility] 2nd Floor, Clinic [address]A [address] [phone] Social History Tobacco Use Types Packs/Day Years [...] (05/15/2014 8:16 AM CDT) Analysis Performed At [facility] Time Signature Sodium 141 135 - 145 [...] Estimated >60 >60 LABDE SCAN (if ml/min/1.7 Tongan) 3m2 (External) GFR Estimated 52 (L) >60 [...] on filedocumented in this encounter Care Teams Medication Aid Relationship Specialty Start Date End Date Momo Forbes PCP - General Family Practice 01/02/14 [facility] [address] [place] [address] Ingrid Santana, RN Registered Nurse Transplant 02/10/12 10/01/15 Joseph Quintana, Assigned Nephrology 03/29/21 MD Provider [address] [place] [address] 353 [facility] 1932 [place] [address] documented as of this encounter
--- OUTSIDE RECORDS SUMMARY | 2022-04-29 12:20 | XMS_ITS | Encounter Summary ---
:1950 Author Organization [place] Address [facility] [place] [address] Care Team Providers Name Role Phone Ingrid Santana RN Unavailable Momo Forbes Primary Care Provider Joseph Quintana MD Unavailable Encounter Details Date Type Department Care Team Description 06/24/2014 External Order Results The Transplant Ce nter Nurse, [facility] 2nd Floor, Clinic [address]A [address] [phone] Social History Tobacco Use Types Packs/Day Years [...] 8:37 AM Results f or this RESULTS MUSIC THEORY PROFESSOR procedure are i n the results section. documented in this encounter Results (ABNORMAL) TXP External Lab Result (06/24/2014 8:37 AM MUSIC THEORY PROFESSOR) Analysis Performed At [facility] Time Signature Sodium 139 135 - 145 [...] 54 (L) >60 LABDE SCAN (if ml/min/1.7 Eritrean) 3m2 (External) GFR Estimated 44 (L) >60 [...] / / Volume Laterality 06/24/2014 8:37 AM MUSIC THEORY PROFESSOR Narrative JESSICA PFT - 06/24/2014 2:52 PM MUSIC THEORY PROFESSOR Verified by Sofie Verdin on 4. Patient Reported LABORATORY Performing Organization Address City/State/ZIP Code Phon e Number [facility] LABDE SCAN documented in this encounter Visit Diagnoses Not on filedocumented in this encounter Care Teams Logistics Planning Manager Relationship Specialty Start Date End Date Momo Forbes PCP - General Family Practice 01/02/14 [facility] [address] [place] [address] Ingrid Santana, RN Registered Nurse Transplant 02/10/12 10/01/15 Joseph Quintana, Assigned Nephrology 03/29/21 MD Provider [address] [place] [address] 1932 [place], [place] [id number] documented as of this encounter
--- OUTSIDE RECORDS SUMMARY | 2022-04-29 12:20 | XMS_ITS | Encounter Summary ---
:1950 Author Organization [place] Address [facility]0 [place] [address] Care Team Providers Name Role Phone Ingrid Santana RN Unavailable Momo Forbes Primary Care Provider Joseph Quintana MD Unavailable Encounter Details Date Type Department Care Team Description 06/08/2014 External Order Results The Transplant Ce nter Nurse, [facility] 2nd Floor, Clinic [address]A [address] [phone] Social History Tobacco Use Types [...] External Lab Result (06/05/2014 8:30 AM CDT) [facility] Method Time Signature Sodium (External) 138 [...] on filedocumented in this encounter Care Teams Clean Up Helper Banquet Relationship Specialty Start Date End Date Momo Forbes PCP - General Family Practice 01/02/14 [facility] [address] [place] [address] Ingrid Santana, RN Registered Nurse Transplant 02/10/12 10/01/15 Joseph Quintana, Assigned Nephrology 03/29/21 MD Provider [address] [place] [address] 1932 [place] [address] documented as of this encounter
--- OUTSIDE RECORDS SUMMARY | 2022-04-29 12:20 | XMS_ITS | Encounter Summary ---
:1950 Author Organization [place] Address [facility]0 [facility] [place] [address] Care Team Providers Name Role Phone Ingrid Santana RN Unavailable Momo Forbes Primary Care Provider Encounter Details Date Type Department Care Team Description 06/10/2014 External Order Results The Transplant Ce ntjakob Nurse, [facility] 2nd Floor, Clinic [address]A [address] [phone] Social History Tobacco Use Types [...] 60 (L) >60 LABDE SCAN (if ml/min/1.7 South Sudanese) 3m2 (External) GFR Estimated 49 (L) >60 [...] on filedocumented in this encounter Care Teams Route Service Representative Relationship Specialty Start Date End Date Momo Forbes PCP - General Family Practice 01/02/14 [facility] [address] [place] [phone] Ingrid Santana, RN Registered Nurse Transplant 02/10/12 10/01/15 documented as of this encounter
--- OUTSIDE RECORDS SUMMARY | 2022-04-29 12:21 | XMS_ITS | Encounter Summary ---
:1950 Author Organization [place] Address [address] [place] [address]. [place] [address] Care Team Providers Name Role Phone Ingrid Santana RN Unavailable Momo Forbes Primary Care Provider Encounter Details Date Type Department Care Team Description 05/10/2014 Orders Only Nephrology Shiva Kahn RN -donor kidney 2nd Floor, Clinic 2A [facility] transplant recipient Tommy Mimateen [address] [place] [address] (Primary Dx) Building [address] [place] [phone] Social History Tobacco Use Types Packs/Day Years [...] transplant documented in this encounter Care Teams Corrective Therapist Relationship Specialty Start Date End Date Momo Forbes PCP - General Family Practice 01/02/14 [facility] [address] [place] [address] Ingrid Santana, RN Registered Nurse Transplant 02/10/12 10/01/15 documented as of this encounter
--- OUTSIDE RECORDS SUMMARY | 2022-04-29 12:21 | XMS_ITS | Encounter Summary ---
:1950 Author Organization [facility] Address [address] [place] [address] Care Team Providers Name Role Phone Ingrid Santana RN Unavailable Momo Forbes Primary Care Provider Reason for Visit Auth/Cert - Closed Specialty Diagnoses / Procedures Referred By Contact Refer red To Contact Surgery Diagnoses S/P Kidney Transplant Uu Periop Procedures COMBINED CYSTOSCOPY, REMOVE STENT(S) 500 [place] [address] Phone: Fax: Referral ID Status Reason Start Date Expiration Date Visits Requ ested Visits Authorized [id number] Closed 1 1 Encounter Details Date Type Department Care Team Description 04/01/2014 Surgery formerly [facility] Migel Merchant Romoval of Right Double PeriOp Services J Stent 500 [facility] [address] [place] [address] [place] [address] [place] [address] (Wo rk) Surgery Details Date/Time Status Location [...] - 04/01/2014 10:15 AM CDT [facility] Same-Day Surgery Adult Discharge Orders & Instructions [...] To contact a doctor, call or: ??? [phone] and ask for the resident operations lead for (answered 24 hours a day) ??? Emergency Department: [facility]: [phone] (TTY for hearing impaired: [phone]) documented in this encounter Medications at Time [...] AM CDT Migel Merchant MD LAB - [facility] POCT Performing Organization Address City/State/ZIP Code Phon e Number [facility] POINT OF CARE TEST, GLUCOSE POINT OF CARE TEST, GLUCOSE Urine culture (04/01/2014 9:00 AM CDT) Component Value Ref Test Analysis Performed At [facility] gist Range Method Time Signature Specimen Unspecified [facility] UNIVERSITY Description Urine CAMPUS LABS Special Specimen [facility] Requests received in MICROBIOLOGY preservative Culture Micro No growth [facility] MICROBIOLOGY Micro Report FINAL [facility] Status 04/02/2014 MICROBIOLOGY Specimen Anatomical Collection Method Collection Time Receive d Time (Source) Location / / Volume Laterality 04/01/2014 9:00 AM 4 9:18 CDT AM CDT Migel Merchant MD LAB - MICRO GENERAL ORDERABL ES Performing Organization Address City/State/ZIP Code Phon e Number [facility] 500 [place] [address] [facility] UNIVERSITY CAMPUS LABS [facility] MICROBIOLOGY (ABNORMAL) UA with Microscopic (04/01/2014 9:00 AM CDT) Component Value Ref Test Analysis Performed At Patholo gist Range Method Time Signature Color Urine Yellow [facility] UNIVERSITY CAMPUS LABS Appearance Urine Clear [facility] UNIVERSITY CAMPUS LABS Glucose Urine 30 (A) NEG [facility] mg/dL UNIVERSITY CAMPUS LABS Bilirubin Urine Negative NEG [facility] UNIVERSITY CAMPUS LABS Ketones Urine Negative NEG [facility] mg/dL UNIVERSITY CAMPUS LABS Specific [place] 1.017 1.003 - [facility] Urine 1.035 UNIVERSITY [...] Code Phon e Number [facility] 500 [place] [address] [facility] UNIVERSITY CAMPUS LABS (ABNORMAL) INR (04/01/2014 [...] City/[facility]/ZIP Code Phon e Number [facility] [address] LABS EKG 12-lead, tracing only (04/01/2014 8:28 AM CDT) [facility] gist Method Time Signature Interpretation ECG Click View RADIOLOGY Image link RESULTS to view waveform and result Specimen (Source) Anatomical Collection Method Collection Time Re ceived Time Location / / Volume Laterality 04/01/2014 8:28 AM CDT Momo Jimenez MD ECG ORDERABLES Performing Organization Address City/[facility]/ZIP Code Phon e Number RADIOLOGY RESULTS Potassium (04/01/2014 8:11 AM CDT) athologist Signature Potassium 4.1 3.4 - 5.3 [facility] mmol/L CAMPUS LABS Specimen Anatomical Collection Method Collection Time Receive d Time (Source) Location / / Volume Laterality Blood specimen 04/01/2014 8:11 AM 014 8:27 (specimen) CDT AM CDT Momo Jimenez MD LAB - BLOOD ORDERABLES Performing Organization Address City/[facility]/ZIP Code Phon e Number [facility] [address] LABS (ABNORMAL) Hemoglobin (04/01/2014 8:11 AM CDT) athologist Signature Hemoglobin 10.2 (L) 13.3 - [facility] 17.7 g/dL [place] LABS Specimen Anatomical Collection Method Collection Time Receive d Time (Source) Location / / Volume Laterality Blood specimen 04/01/2014 8:11 AM 014 8:27 (specimen) CDT AM CDT Momo Jimenez MD LAB - BLOOD ORDERABLES Performing Organization Address City/[facility]/ZIP Code Phon e Number [facility] [address] LABS (ABNORMAL) Glucose by meter (04/01/2014 8:02 AM CDT) athologist Signature Glucose 158 (H) 60 - 99 POINT OF CARE mg/dL TEST, GLUCOSE Specimen Anatomical Collection Method Collection Time Receive d Time (Source) Location / / Volume Laterality 04/01/2014 8:02 AM 4 8:05 CDT AM CDT Migel LARES - [facility] POCT Performing Organization Address City/State/ZIP Code [...] 0850 (Given - Provider: Addis Brannon APRN SNOW MAKER - Comment: Asked by Fellow to give [...] Intra-procedure documented in this encounter Care Teams Fuel Cell Engineer Relationship Specialty Start Date End Date Momo Forbes PCP - General Family Practice 01/02/14 [facility] [address] [place] [id number] Ingrid Santana, RN Registered Nurse Transplant 02/10/12 10/01/15 documented as of this encounter
--- OUTSIDE RECORDS SUMMARY | 2022-04-29 12:21 | XMS_ITS | Encounter Summary ---
:1950 Author Organization [facility] Address [address] [place] [address] Care Team Providers Name Role Phone Ingrid Santana RN Unavailable Momo Forbes Primary Care Provider Encounter Details Date Type Department Care Team Description 04/22/2014 Orders Only [facility], [facility], [facility] jm [place] [address] [phone] [place] [address] 758 [place] [address] (Wo rk) Social History Tobacco [...] (ABNORMAL) Tacrolimus level (05/17/2014 8:17 AM CDT) [facility] Method Time Signature Tacrolimus Last 05/16/2014 [facility] Dose 2000 [facility] LABS Tacrolimus 4.4 (L) 5.0 - [facility] Level 15.0 ug/L [facility] LABS Comment: Tacrolimus Reference Range Kidney Transplant [...] [facility] 500 [place], [place] [id number] [place] [address] [facility] (ABNORMAL) Tacrolimus level (05/15/2014 8:15 AM CDT) [facility] gist Method Time Signature Tacrolimus Last 05/14/14 [facility] Dose 2000 [facility] LABS Tacrolimus 4.6 (L) 5.0 - [facility] Level 15.0 ug/L [facility] LABS Comment: Tacrolimus Reference Range Kidney Transplant [...] [facility] [address] [place], [place] [id number] [place] [address] [facility] LABS Tacrolimus level (05/10/2014 8:50 AM CDT) [facility] gist Method Time Signature Tacrolimus Not Provided [facility] Last Dose [facility] LABS Tacrolimus 14.3 5.0 - [facility] Level 15.0 ug/L [facility] LABS Comment: Tacrolimus Reference Range Kidney Transplant [...] [facility] [address] [place], [place] [phone] [place] [address] [facility] LABS (ABNORMAL) Tacrolimus level (05/07/2014 8:15 AM CDT) [facility] gist Method Time Signature Tacrolimus Last 05/06/14 [facility] Dose 2000 [facility] LABS Tacrolimus 15.9 (H) 5.0 - [facility] Level 15.0 ug/L [facility] LABS Comment: Tacrolimus Reference Range Kidney Transplant [...] [facility] 500 [place], [place] [id number] [place] [address] [facility] LABS Tacrolimus level (05/03/2014 8:13 AM CDT) [facility] gist Method Time Signature Tacrolimus Last [facility] Dose 2000 [facility] LABS Tacrolimus 8.8 5.0 - [facility] Level 15.0 ug/L [facility] LABS Comment: Tacrolimus Reference Range Kidney Transplant [...] [facility] [address] [place], [place] [id number] [place] [address] [facility] LABS Tacrolimus level (04/30/2014 8:20 AM CDT) [facility] gist Method Time Signature Tacrolimus Last 04/29/14 [facility] Dose 2000 [facility] LABS Tacrolimus 12.6 5.0 - [facility] Level 15.0 ug/L [facility] LABS Comment: Tacrolimus Reference Range Kidney Transplant [...] [facility] [address] [place], [place] [id number] [place] [address] [facility] LABS Tacrolimus level (04/26/2014 8:30 AM CDT) [facility] gist Method Time Signature Tacrolimus Last 04/25/14 [facility] Dose 1900 [facility] LABS Tacrolimus 10.1 5.0 - [facility] Level 15.0 ug/L [facility] LABS Comment: Tacrolimus Reference Range Kidney Transplant [...] LAB - BLOOD ORDERABLES Performing Organization Address City/State/[facility] Phon e Number [facility] 500 [place], [place] [phone] [place] [address] [facility] LABS Tacrolimus level (04/24/2014 9:00 AM CDT) [facility] gist Method Time Signature Tacrolimus Last 04/23/14 [facility] Dose 1900 [facility] LABS Tacrolimus 13.1 5.0 - [facility] Level 15.0 ug/L [facility] LABS Comment: Tacrolimus Reference Range Kidney Transplant [...] [facility] [address] [place], [place] [phone] [place] [address] LABS documented in this encounter Visit Diagnoses Not on filedocumented in this encounter Care Teams Sales And Merchandising Representative Relationship Specialty Start Date End Date Momo Forbes PCP - General Family Practice 01/02/14 [facility] [address] [place] [address] Ingrid Santana, RN Registered Nurse Transplant 02/10/12 10/01/15 documented as of this encounter
--- OUTSIDE RECORDS SUMMARY | 2022-04-29 12:21 | XMS_ITS | Encounter Summary ---
:1950 Author Organization [facility] Address [address] [place] [address] Care Team Providers Name Role Phone Ingrid Santana RN Unavailable Momo Forbes Primary Care Provider Reason for Visit Auth/Cert - Closed Specialty Diagnoses / Procedures Referred By Contact Refer red To Contact Surgery Diagnoses S/P Kidney Transplant Uu Periop Procedures COMBINED CYSTOSCOPY, REMOVE STENT(S) 500 [place] [address] Phone: Fax: Referral ID Status Reason Start Date Expiration Date Visits Requ ested Visits Authorized [id number] Closed 1 1 Encounter Details Date Type Department Care Team Description 04/01/2014 Hospital Encounter [facility] Migel Merchant, Same Day Surgery [facility] 420 [facility] Emergency Department 500 [facility] 195 [place] [address] [place] [address] (Wo rk) Social History Tobacco Use Types [...] Scott RN - 04/01/2014 10:15 AM CDT [facility], [facility] Same-Day Surgery Adult Discharge Orders & Instructions [...] To contact a doctor, call or: ??? [phone] and ask for the resident gas distribution and emergency clerk for (answered 24 hours a day) ??? Emergency Department: [facility]: [phone] (TTY for hearing impaired: [phone]) documented in this encounter Medications at Time [...] Component Value Ref Test Analysis Performed At [facility] Range Method Time Signature Specimen Unspecified [facility] Urine CAMPUS LABS Special Specimen [facility] Requests received in MICROBIOLOGY preservative Culture Micro No growth [facility] MICROBIOLOGY Micro Report FINAL [facility] Status 04/02/2014 MICROBIOLOGY Specimen Anatomical Collection Method Collection Time Receive d Time (Source) Location / / Volume Laterality 04/01/2014 9:00 AM 4 9:18 CDT AM CDT Migel Merchant MD LAB - MICRO GENERAL ORDERABL ES Performing Organization Address City/State/ZIP Code Phon e Number [address] [address] [facility] LABS [facility] MICROBIOLOGY (ABNORMAL) UA with Microscopic (04/01/2014 9:00 AM CDT) Component Value Ref Test Analysis Performed At Patholo gist Range Method Time Signature Color Urine Yellow [facility] UNIVERSITY CAMPUS LABS Appearance Urine Clear [facility] UNIVERSITY CAMP[facility] LABS Glucose Urine 30 (A) NEG [facility] mg/dL UNIVERSITY CAMPUS LABS Bilirubin Urine Negative [facility] Ketones Urine Negative NEG [facility] mg/dL UNIVERSITY CAMPUS LABS Specific [place] 1.017 1.003 - [facility] Urine 1.035 UNIVERSITY CAMPUS LABS Blood Urine Moderate (A) NEG [facility] UNIVERSITY CAMPUS LABS pH Urine 6.0 5.0 - [facility] 7.0 pH UNIVERSITY [place] LABS Protein Albumin 10 (A) NEG [facility] Urine mg/dL UNIVERSITY CAMPUS LABS Urobilinogen Normal 0.0 - [facility] mg/dL 2.0 UNIVERSITY mg/dL CAMPUS LABS Nitrite Urine Negative NEG [facility] UNIVERSITY CAMPUS LABS Leukocyte Negative NEG [facility] Esterase Urine UNIVERSITY [place] LABS Source Unspecified [facility] Urine UNIVERSITY CAMPUS LABS WBC Urine 2 0 - 2 [facility] /HPF [facility] LABS RBC Urine 30 (H) 0 [...] Address City/State/ZIP Code Phon e Number [address] LABS (ABNORMAL) INR (04/01/2014 8:36 AM CDT) P athologist Signature INR 1.64 (H) 0.86 - 1.14 [facility] LABS Specimen Anatomical Collection Method Collection Time Receive d Time (Source) Location / / Volume Laterality Blood specimen 04/01/2014 8:36 AM 014 8:41 (specimen) CDT AM CDT Momo Jimenez MD LAB - BLOOD ORDERABLES Performing Organization Address City/State/ZIP Code Phon e Number [address] LABS EKG 12-lead, tracing only (04/01/2014 8:28 AM CDT) [facility] gist Method Time Signature Interpretation ECG [...] Potassium 4.1 3.4 - 5.3 [facility] mmol/L CAMPUS LABS Specimen Anatomical Collection Method Collection Time Receive d Time (Source) Location / / Volume Laterality Blood specimen 04/01/2014 8:11 AM 014 8:27 (specimen) CDT AM CDT Momo Jimenez MD LAB - BLOOD ORDERABLES Performing Organization Address City/[facility]/ZIP Code Phon e Number [facility] [address] LABS (ABNORMAL) Hemoglobin (04/01/2014 8:11 AM CDT) athologist Signature Hemoglobin 10.2 (L) 13.3 - [facility] 17.7 g/dL CAMPUS LABS Specimen Anatomical Collection Method Collection Time Receive d Time (Source) Location / / Volume Laterality Blood specimen 04/01/2014 8:11 AM 014 8:27 (specimen) CDT AM CDT Momo Jimenez MD LAB - BLOOD ORDERABLES Performing Organization Address City/[facility]/ZIP Code Phon e Number [facility] [address] LABS (ABNORMAL) Glucose by meter (04/01/2014 8:02 AM CDT) athologist Signature Glucose 158 (H) 60 - 99 POINT OF CARE mg/dL TEST, GLUCOSE Specimen Anatomical Collection Method Collection Time Receive d Time (Source) Location / / Volume Laterality 04/01/2014 8:02 AM 4 8:05 CDT AM CDT Migel Merchant MD LAB - [place] POCT Performing Organization Address City/[facility]/ZIP Code Phon e Number [facility] POINT OF CARE TEST, GLUCOSE POINT OF CARE TEST, GLUCOSE documented in this encounter Visit Diagnoses Not on filedocumented in this encounter Active and Recently Administered Medications Times are shown in CDT. Scheduled Medication Order 03/30/2014 03/31/2014 04/01/2014 levofloxacin (LEVAQUIN) IVPB 500 mg (COMPLETED) 0850 (Given - Provider: Addis Brannon APRN CAREER TECHNICAL SUPERVISOR - Comment: Asked by Fellow to give [...] Intra-procedure documented in this encounter Care Teams Correctional Maintenance Technician Relationship Specialty Start Date End Date Momo Forbes PCP - General Family Practice 01/02/14 [facility] [address] [place] [address] Ingrid Santana, RN Registered Nurse Transplant 02/10/12 10/01/15 documented as of this encounter
--- OUTSIDE RECORDS SUMMARY | 2022-04-29 12:21 | XMS_ITS | Encounter Summary ---
:1950 Author Organization [place] Address [address] [place] [address]. [place] [address] Care Team Providers Name Role Phone Ingrid Santana RN Unavailable Momo Forbes Primary Care Provider Encounter Details Date Type Department Care Team Description 03/11/2014 Orders Only Transplant Surgery Celina Cole (Primary Clinic A, Dx) 2nd Floor, Clinic 2A [address] [place] [address] [address] [place] [address] Social History Tobacco Use Types [...] channels documented in this encounter Care Teams Air Compressor Engineer Relationship Specialty Start Date End Date Momo Forbes PCP - General Family Practice 01/02/14 [facility] [address] [place] [address] Ingrid Santana, RN Registered Nurse Transplant 02/10/12 10/01/15 documented as of this encounter
--- OUTSIDE RECORDS SUMMARY | 2022-04-29 12:21 | XMS_ITS | Encounter Summary ---
:1950 Author Organization [facility] Address [facility] [place] [address] Care Team Providers Name Role Phone Ingrid Santana RN Unavailable Momo Forbes Primary Care Provider Reason for Visit Reason Onset Date Comments Pt. Information/instruction 03/14/2014 Encounter Details Date Type Department Care Team Description 03/14/2014 Telephone formerly [facility] Beto Womack Pt . Interventional Radio martha Dangelo RN Information/instructio 500 [place] [address] Social History Tobacco Use Types [...] filedocumented in this encounter Care Teams Pipe Welder Relationship Specialty Start Date End Date Momo Forbes PCP - General Family Practice 01/02/14 [facility] [address] [place] [address] Ingrid Santana RN Registered Nurse Transplant 02/10/1210/16 documented as of this encounter
--- OUTSIDE RECORDS SUMMARY | 2022-04-29 12:21 | XMS_ITS | Encounter Summary ---
:1950 Author Organization [facility] Address [address] [place] [address]. [place] [address] Care Team Providers Name Role Phone Ingrid Santana RN Unavailable Momo Forbes Primary Care Provider Reason for Visit Reason Onset Date Comments Refill Request 04/05/2014 Tamy Cabrera Encounter Details Date Type Department Care Team Description 04/05/2014 Refill The Transplant Migel Martinez, Refill Request 2nd Floor, Clinic 2A ([facility] [address] [place] [address] antoprazole) Building [facility] [address] [place] [address] [address] [place] [phone] Social History Tobacco Use Types Packs/Day Years [...] Last Fill: 03/14/14 Qty: 30 [facility] [phone] documented in this encounter Plan of Treatment Not on filedocumented as of this encounter Visit Diagnoses Diagnosis S/P kidney transplant Kidney replaced by transplant Atrial fibrillation (H) Atrial fibrillation documented in this encounter Care Teams Carboy Filler Relationship Specialty Start Date End Date Momo Forbes PCP - General Family Practice 01/02/14 [facility] [address] [place] [address] Ingrid Santana, RN Registered Nurse Transplant 02/10/12 10/01/15 documented as of this encounter
--- OUTSIDE RECORDS SUMMARY | 2022-04-29 12:21 | XMS_ITS | Encounter Summary ---
:1950 Author Organization [facility] Address [address] [place] [address] Care Team Providers Name Role Phone Ingrid Santana RN Unavailable Momo Forbes Primary Care Provider Reason for Visit Auth/Cert - Closed Specialty Diagnoses / Procedures Referred By Contact Refer red To Contact Surgery Diagnoses Status Post Kidney Transplant Uu Periop Procedures COMBINED CYSTOSCOPY, REMOVE STENT(S) 500 [place] [address] Phone: Fax: Referral ID Status Reason Start Date Expiration Date Visits Requ ested Visits Authorized [id number] Closed 1 1 Encounter Details Date Type Department Care Team Description 03/11/2014 Hospital Encounter [facility] [place], Migel Evans, Same Day Surgery [facility] 420 [facility] 500 [facility] [address] [place] [address] [place] [address] (Wo rk) Social History Tobacco Use Types [...] by mouth daily tabletIndications: S/P kidney transplant sertraline (ZOLOFT) 100 MG Take 100 mg by 0 04/20/2016 tablet mouth daily. sulfamethoxazole-trimethop Take 1 tablet by 31 tablet 11 02/10/2015 rim (BACTRIM,SEPTRA) mouth daily 400-80 MG per tabletIndications: PCP prophylaxis valGANciclovir (VALCYTE) Take 1 tablet (450 84 tablet 0 04/04/2014 450 MG tabletIndications: mg) by mouth daily Cytomegalovirus Disease Pharmacoprophylaxis PROGRAF 1 MG Take 1 capsule (1 60 capsule 6 03/01/201403/13 capsuleIndications: mg) by mouth 2 -donor kidney times daily (total transplant recipient dose 1.5 mg every morning and 1 mg every evening) senna-docusate Take 2 tablets by 15 tablet 0 02/08/2014 (SENOKOT-S;PERICOLACE) mouth daily as 8.6-50 MG per needed for tabletIndications: S/P constipation kidney transplant tacrolimus (PROGRAF BRAND) Take 1 capsule 30 capsule 6 03/0103/13/2014 0.5 MG capsuleIndications: (0.5 mg) by mouth -donor kidney every morning transplant recipient (total dose 1.5 mg every morning and 1 mg every evening) warfarin (COUMADIN) 5 MG Take 1 tablet (5 30 tablet 0 02/0803/13/2014 tabletIndications: Atrial mg) by mouth daily fibrillation (H) documented as of this encounter Nursing Notes Kenzie Levine RN - 03/11/2014 6:53 PM CDT IV dc'd and dressing applied, no active bleeding noted at dc eKnzie Levine RN - 03/11/2014 6:22 PM CDT [...] 8:46 CDT AM CDT Migel Merchant MD [facility] POCT Performing Organization Address City/State/ZIP Code Phon e Number [facility] POINT OF CARE TEST, GLUCOSE POINT OF CARE TEST, GLUCOSE documented in this encounter Visit Diagnoses Not on filedocumented in this encounter Active and Recently Administered Medications Care Teams Regional Climate Change Analyst Relationship Specialty Start Date End Date Momo Forbes PCP - General Family Practice 01/02/14 [facility] [address] [place] [address] Ingrid Santana, RN Registered Nurse Transplant 02/10/1216 documented as of this encounter
--- OUTSIDE RECORDS SUMMARY | 2022-04-29 12:21 | XMS_ITS | Encounter Summary ---
:1950 Author Organization [place] Address [facility] [place] [address] Care Team Providers Name Role Phone Ingrid Santana RN Unavailable Momo Forbes Primary Care Provider Reason for Visit Reason Onset Date Comments Patient Reminder 03/26/2014 Encounter Details Date Type Department Care Team Description 03/26/2014 Telephone Nephrology Yesenia Clements CMA Patient Reminder 2nd Floor, Clinic [address] [place] [phone] Social History Tobacco Use Types [...] on filedocumented in this encounter Care Teams Center Aisle Cashier Relationship Specialty Start Date End Date Momo Forbes PCP - General Family Practice 01/02/14 [facility] [address] [place] [address] Ingrid Santana, RN Registered Nurse Transplant 02/10/12 10/01/15 documented as of this encounter
--- OUTSIDE RECORDS SUMMARY | 2022-04-29 12:21 | XMS_ITS | Encounter Summary ---
:1950 Author Organization [place] Address [address] [place] [address] Care Team Providers Name Role Phone Ingrid Santana RN Unavailable Momo Forbes Primary Care Provider Encounter Details Date Type Department Care Team Description 03/22/2014 Orders Only [facility], [facility] jm [place] [address] [phone] [place] [address] [address] [place] [address] (Wo rk) Social History Tobacco [...] Results Tacrolimus level (04/19/2014 8:40 AM CDT) [facility] Method Time Signature Tacrolimus Not Provided [facility] Last Dose [facility] Tacrolimus 10.3 5.0 - [facility] Level 15.0 ug/L DEL [...] Phon e Number [facility] 500 [place], [place] [phone] [place] [address] [facility] Tacrolimus level (04/16/2014 8:22 AM CDT) Patholo gist Method Time Signature Tacrolimus Not Provided [facility] Last Dose [facility] Tacrolimus 9.1 5.0 - [facility] Level 15.0 ug/L DEL [...] Phon e Number [facility] 500 [place], [place] [phone] [place] [address] [facility] Tacrolimus level (04/11/2014 8:40 AM CDT) [facility] gist Method Time Signature Tacrolimus Last 04/10/14 [facility] Dose 19:00 [facility] Tacrolimus 14.4 5.0 - [facility] Level 15.0 ug/L DEL [...] Phon e Number [facility] [address] [place], [place] [phone] [place] [address] [facility] Tacrolimus level (04/09/2014 8:45 AM CDT) [facility] gist Method Time Signature Tacrolimus Last 04/08/14 [facility] Dose 2000 [facility] Tacrolimus 11.7 5.0 - [facility] Level 15.0 ug/L DEL [...] Phon e Number [facility] 500 [place], [place] [phone] [place] [address] [facility] Tacrolimus level (04/05/2014 9:40 AM CDT) [facility] gist Method Time Signature Tacrolimus Last 1999 [facility] Dose 04/04/14 [facility] Tacrolimus 9.7 5.0 - [facility] Level 15.0 ug/L DEL [...] Phon e Number [facility] 500 [place] [address] [facility] (ABNORMAL) Tacrolimus level (03/28/2014 8:30 AM CDT) [facility] gist Method Time Signature Tacrolimus Last 03/27/14 [facility] Dose 1900 [facility] Tacrolimus 15.8 (H) 5.0 - [facility] Level 15.0 ug/L DEL [...] Phon e Number [facility] 500 [place], [place] [phone] [place] [address] [facility] Tacrolimus level (03/26/2014 9:18 AM CDT) [facility] gist Method Time Signature Tacrolimus Last 03/25/14 [facility] Dose 1900 [facility] Tacrolimus 9.2 5.0 - [facility] Level 15.0 ug/L DEL [...] Phon e Number [facility] 500 [place], [place] [phone] [place] [address] [facility] Tacrolimus level (03/14/2014 9:00 AM CDT) [facility] gist Method Time Signature Tacrolimus Last 1999 [facility] Dose 03/13/14 [facility] Tacrolimus 9.5 5.0 - [facility] Level 15.0 ug/L DEL [...] Phon e Number [facility] 500 [place], [place] [phone] [place] [address] LABS documented in this encounter Visit Diagnoses Not on filedocumented in this encounter Care Teams Legal Consultant Relationship Specialty Start Date End Date Momo Forbes PCP - General Family Practice 01/02/14 [facility] [address] [place] [address] Ingrid Santana RN Registered Nurse Transplant 02/10/12 10/01/15 documented as of this encounter
--- OUTSIDE RECORDS SUMMARY | 2022-04-29 12:21 | XMS_ITS | Encounter Summary ---
:1950 Author Organization [place] Address [facility] [place] [address] Care Team Providers Name Role Phone Ingrid Santana RN Unavailable Momo Forbes Primary Care Provider Reason for Visit Reason Onset Date Comments Pre Visit Planning - Done 04/08/2014 2 m f/u Post o p AFIB s/p DCCV. on warfarin 4 weeks Encounter Details Date Type Department Care Team Description 04/08/2014 PRE VISIT [facility] [address] Pre Visit Planning - Physicians Orestes Hernandez MD Done (2 m f/u Post op [facility] AF IB s/p DCCV. on [facility] warfarin 4 weeks) 4th Floor, Clinic 4B [phone] [place] [address] (Wo rk) [phone] Social History Tobacco Use Types Packs/Day Years [...] on filedocumented in this encounter Care Teams Christian Science Reader Relationship Specialty Start Date End Date Momo Forbes PCP - General Family Practice 01/02/14 [facility] [address] [place] [phone] Ingrid Santana, RN Registered Nurse Transplant 02/10/12 10/01/15 documented as of this encounter
--- OUTSIDE RECORDS SUMMARY | 2022-04-29 12:21 | XMS_ITS | Encounter Summary ---
:1950 Author Organization [place] Address [facility] [place] [address] Care Team Providers Name Role Phone Ingrid Santana RN Unavailable Momo Forbes Primary Care Provider Reason for Visit Reason Onset Date Comments Patient Reminder 05/09/2014 Encounter Details Date Type Department Care Team Description 05/09/2014 Telephone Nephrology Yesenia Clements CMA Patient Reminder 2nd Floor, Clinic [address] [place] [phone] Social History Tobacco Use Types [...] filedocumented in this encounter Care Teams Carpet Cleaning Technician Relationship Specialty Start Date End Date Momo Forbes PCP - General Family Practice 01/02/14 [facility] [address] [place] [address] Ingrid Santana, RN Registered Nurse Transplant 02/10/12 10/01/15 documented as of this encounter
--- OUTSIDE RECORDS SUMMARY | 2022-04-29 12:21 | XMS_ITS | Encounter Summary ---
:1950 Author Organization [place] Address [address] [facility] [place] [address] Care Team Providers Name Role Phone Ingrid Santana RN Unavailable Momo Forbes Primary Care Provider Encounter Details Date Type Department Care Team Description 03/15/2014 Hospital Encounter [facility] Susy Cole, Lymphocele Unit 2A [facility] [address] [place] [phone] [place], [place] [phone] (Wo rk) Social History Tobacco Use Types [...] until healed, wash daily with antibacterial soap. [facility] INTERVENTIONAL RADIOLOGY DEPARTMENT Procedure Physician Andrea Can Date of procedure Telephone numbers: [phone] Tuesday-Tuesday 8:00 am to 4:30 pm [phone] After 4:30 pm Tuesday-Tuesday, Weekends & Holidays. Ask for the Interventional Radiologist post acute care nurse practitioner. Someone is available 24 hours/day [facility] toll free number: Tuesday-Tuesday 8:00 am [...] transplant recipient dose 1.5 mg twice daily) sertraline (ZOLOFT) 100 MG Take 100 mg [...] mg) by mouth daily Cytomegalovirus Disease Pharmacoprophylaxis senna-docusate Take 2 tablets by 15 tablet 0 02/08/2014 (SENOKOT-S;PERICOLACE) mouth daily as 8.6-50 MG per needed for tabletIndications: S/P constipation kidney transplant warfarin (COUMADIN) 5 MG Take 1 tablet [...] CCRN March 15, 2014 9:20 AM Pager: [phone] Nano Cline NP - 03/15/2014 8:58 AM CDT Discussed order with Dr Merchant today. He would like drain placement if the fluid appears thin. If itappears to be a hematoma then aspiration only. D/w Drea resident and IR staff doing the case. Thanks [facility] ORNAMENT SETTER ([phone]) Jeanette Lopez RN - 03/15/2014 8:14 AM CDT Prepped and consented, INR 1.1 FSBS is 219 documented in this encounter Procedure Notes Drea Glasgow MD - 03/15/2014 9:23 AM CDT Interventional Radiology Brief Post Procedure Note Pre Procedure Diagnosis: perinephric fluid collection Post Procedure Diagnosis: Same Procedure: Aspiration of RLQ fluid collection over the tranplant kidney Proceduralist: Drea Glasgow MD, Andrea Gibbons PA-C Tunnel Heading Inspector: None Time Out: Prior to the start [...] CDT 10:05 AM CDT Celina Cole MD [facility] POCT Performing Organization Address City/State/ZIP Code [...] Dr. Yossi Cox Resident: Dr. Drea Glasgow Tunnel Heading Inspector: Andrea Gibbons PA-C. Medications: 1% lidocaine and [...] Dr. Yossi Cox Resident: Dr. Drea Glasgow Tunnel Heading Inspector: Andrea Gibbons PA-C. Medications: 1% lidocaine and [...] Value Ref Test Analysis Performed At [facility] Range Method Time Signature Specimen Aspirate [facility] LABS Gram Stain Many PMNs seen [facility] No organisms seen MICROBIOLOGY Micro Report FINAL [facility] Status 03/15/2014 MICROBIOLOGY Specimen Anatomical Collection Method Collection Time Receive d Time (Source) Location / / Volume Laterality 03/15/2014 9:05 AM 4 9:59 CDT AM CDT Celina Cole MD LAB - MICRO GENERAL ORDERABL ES Performing Organization Address City/[facility] Phon e Number [address] LABS [facility] MICROBIOLOGY (ABNORMAL) Fluid Culture (03/15/2014 9:05 AM CDT) Component Value Ref Test Analysis Performed At [facility] Range Method Time Signature Specimen Aspirate [facility] Description [facility] LABS Culture Micro Light growth Coagulase negat jo Staphylococcus Susceptibility testing not [facility] routinely done MICROBIOLOGY (A) Micro Report FINAL 03/18/2014 [facility] Status MICROBIOLOGY Specimen Anatomical Collection Method Collection Time Receive d Time (Source) Location / / Volume Laterality Fluid sample SPECIMEN OBTAINED 03/15/2014 9:05 AM 02/20 9:59 (specimen) BY ASPIRATION / CDT AM CDT Unknown Celina Cole MD LAB - MICRO GENERAL ORDERABL ES Performing Organization Address City/[facility] Phon e Number [address] LABS [facility] MICROBIOLOGY Triglyceride Fluid (03/15/2014 9:05 AM CDT) [facility] Method Time Signature Triglyceride Aspirate [facility] Fluid Source PERINEPHRIC [facility] LABS Triglyceride 94 mg/dL [facility] Fluid [facility] LABS Comment: No reference ranges have been [...] Phon e Number [facility] 500 [place], [place] [phone] [place] [address] LABS Cell count with differential fluid (03/15/2014 9:05 AM CDT) Component Value Ref Test Analysis Performed At [facility] gist Range Method Time Signature Body Fluid Aspirate [facility] Analysis Source PERINEPHRIC [facility] LABS Color Fluid Brown [facility] LABS Appearance Turbid [facility] Fluid [facility] LABS RBC Fluid << Do Not /uL [facility] Report >> [facility] LABS WBC Fluid [address] /uL [facility] LABS % Neutrophils 97 % [facility] Fluid [facility] LABS % Lymphocytes 2 % [facility] Fluid [facility] % Eosinophils 1 % [facility] Fluid [facility] LABS Specimen Anatomical Collection Method Collection Time Receive d Time (Source) Location / / Volume Laterality SPECIMEN OBTAINED 03/15/2014 9:05 AM 02/20 9:56 BY ASPIRATION / CDT AM CDT Unknown Celina Cole MD LAB - BODY FLUIDS ORDERABLES Performing Organization Address City/State/ZIP Code Phon e Number [facility] [address] LABS Lactate dehydrogenase fluid (03/15/2014 9:05 AM CDT) Component Value Ref Test Analysis Performed At [facility] gist Range Method Time Signature LD Fluid Source Aspirate [facility] PERINEPHRIC [facility] LABS Lactate Canceled, Test credited U/L [facility] [...] Phon e Number [facility] [address] LABS Creatinine fluid (03/15/2014 9:05 AM CDT) Patholo gist Method Time Signature Creatinine Aspirate [facility] Fluid Source PERINEPHRIC [facility] LABS Creatinine 1.5 mg/dL [facility] Fluid [facility] LABS Comment: No reference ranges have been [...] Phon e Number [facility] [address] [place] [address] [facility] LABS INR point of care (03/15/2014 8:06 AM CDT) P athologist Signature INR Point of 1.1 0.86 - POINT OF CARE Care 1.14 TEST, HANDHELD METER Specimen Anatomical Collection Method Collection Time Receive d Time (Source) Location / / Volume Laterality 03/15/2014 8:06 AM 4 8:30 CDT AM CDT Celina Cole MD LAB - BLOOD ORDERABLES Performing Organization Address City/[facility]/ZIP Code Phon e Number [facility] [...] LAB - BEAKER POCT Performing Organization Address City/[facility]/ZIP Code Phon e Number [facility] [...] ceFAZolin (ANCEF) IVPB 3 g (pre-mix) (COMPLETED) 0810 (Given - Provider: Jeanette Lopez, RN) Routine, 3 g, Intravenous, PRE-OP/PRE-RI OCEDURE, Starting on Tue03/15/14 at 0734, For 1 dose, Give dose within 1 hour PRIOR to procedure., Indications: Perioperative Pharmacoprophylaxis, IR Pre-procedure Continuous Medication Order 03/13/2014 03/14/2014 03/15/2014 0.9 % sodium chloride IV solution (CANCELED) 08 (New Bag - Provider: Jeanette Lopez, RN) at 75 mL/hr, Intravenous, CONTINUOUS, Un til Discontinued. Start today., IR Pre- procedure, Starting on Tue03/15/14 at 0745, Until Tue03/15/14 at 0926 PRN Medication Order 03/13/2014 03/14/2014 03/15/2014 fentaNYL (SUBLIMAZE) injection 25-50 mcg (CANCELED) 09 (Given - Provider: Holly Stewart RN - Comment: total intra procedure dose given) 25-50 mcg, Intravenous, EVERY 5 MIN PRN, severe pain, If inadequate response may repeat 25 mcg IV slowly Q 5 min PRN severe pain, Administer over 2 Minutes, Starting on Tue03/15/14 at 0825, Doses can be exceeded under direct oversight of patient by physician., IR In tra-procedure lidocaine BUFFERED 1 % solution 1-30 mL (COMPLETED) 09 (Given by Other Clinician - Provider: Holly Stewart RN - Comment: total intra procedure dose injected by Dr. Katey Glasgow) 1-30 mL, Intradermal, ONCE PRN, for site local anesthesic, Starting on Tue03/15/14 at 0825, For 1 dose, Dose to be divided into smaller volumes appropriate for the procedure. Provider to administer intradermally, IR Intra-procedure midazolam (VERSED) injection 0.5-1 mg (CANCELED) 09 (Given - Provider: Holly Stewart RN - Comment: total intra procedure dose given) 0.5-1 mg, Intravenous, Administer over 1 Minutes, EVERY 4 MIN PRN, sedation, If inadequate response may repeat 0.5 mg IV slowly Q 4 minutes PRN sedation until desired response., Starting on Tue03/15/14 at 0825, Doses can be exceeded under dir ect oversight of patient by physician., IR Intra-procedure documented in this encounter Care Teams Freight Representative Relationship Specialty Start Date End Date Momo Forbes PCP - General Family Practice 01/02/14 [facility] [address] [place] [address] Ingrid Santana, RN Registered Nurse Transplant 02/10/12 10/01/15 documented as of this encounter
--- OUTSIDE RECORDS SUMMARY | 2022-04-29 12:21 | XMS_ITS | Encounter Summary ---
:1950 Author Organization [place] Address [address] [place] [address]. [place] [address] Care Team Providers Name Role Phone Ingrid Santana RN Unavailable Momo Forbes Primary Care Provider Encounter Details Date Type Department Care Team Description 03/14/2014 Orders Only Nephrology Shiva Kahn RN -donor kidney 2nd Floor, Clinic 2A [facility] transplant recipient Tommy Josephensteen [address] [place] [address] [place] [phone] Social History Tobacco Use Types Packs/Day Years [...] transplant documented in this encounter Care Teams Geological Drafter Relationship Specialty Start Date End Date Momo Forbes PCP - General Family Practice 01/02/14 [facility] [address] [place] [address] Ingrid Santana RN Registered Nurse Transplant 02/10/12 10/01/15 documented as of this encounter
--- OUTSIDE RECORDS SUMMARY | 2022-04-29 12:21 | XMS_ITS | Encounter Summary ---
:1950 Author Organization [place] Address [address] [facility] [place] [address] Care Team Providers Name Role Phone Ingrid Santana RN Unavailable Momo Forbes Primary Care Provider Reason for Referral Specialty Diagnoses / Procedures Referred By Contact Refer red To Contact Migel Merchant MD [address] 3525 2 Referral ID Status Reason Start Date Expiration Date Visits Requ ested Visits Authorized Scheduling Instructions ANTICOAGULATION CLINIC COLLABORATIVE PRA CTICE AGREEMENT The following represents a collaborative practice agreement among the physicians of the Clinic and staff of the Anticoagulat ion Clinic Service ([facility]) Physicians shall: 1. Refer patients requiring anticoagulat ion to a specialty service staffed by personnel of Pharmacy Services and super vised by Clinic physicians. 2. Respond to questions and referrals fr pharmacy staff regarding delinquent or difficult patients. 3. Inform the [facility] staff when a new patie nt [...] of adverse or sub-therapeutic effects including at [facility] the following: Has the patient experienced [...] Department Care Team Description 03/29/2014 Orders Only [facility] Migel Merchant fibrillation (H) (Primary Dx); Anticoagulation Clin ic MD Nathan terminal worker (current) use of anticoagulant s [address] [place], [place] [address] [place] [phone] [place] [address] Social History Tobacco Use Types Packs/Day Years [...] Routine Atrial fibri llation (H) Ordered: 03/29/2014 Floor Cashier (Current) Use Of Anticoagulants documented as of this encounter Visit Diagnoses Diagnosis Atrial fibrillation (H) - Primary Atrial fibrillation [facility] (current) use of anticoagulant s Long-term (current) use of anticoagulant s documented in this encounter Care Teams Flower Picker Relationship Specialty Start Date End Date Momo Forbes PCP - General Family Practice 01/02/14 [facility] [address] [place] [address] Ingrid Santana, RN Registered Nurse Transplant 02/10/12 10/01/15 documented as of this encounter
--- OUTSIDE RECORDS SUMMARY | 2022-04-29 12:21 | XMS_ITS | Encounter Summary ---
:1950 Author Organization [place] Address [address] [place] [address]. [place] [address] Care Team Providers Name Role Phone Ingrid Santana RN Unavailable Momo Forbes Primary Care Provider Encounter Details Date Type Department Care Team Description 05/02/2014 Orders Only Nephrology Shiva Kahn RN -donor kidney 2nd Floor, Clinic 2A [facility] transplant recipient Tommy Josephensteen [address] [place] [address] [place] [phone] Social History Tobacco Use Types Packs/Day Years [...] transplant documented in this encounter Care Teams Supervisor Remelt Relationship Specialty Start Date End Date Momo Forbes PCP - General Family Practice 01/02/14 [facility] [address] [place] [address] Ingrid Santana RN Registered Nurse Transplant 02/10/12 10/01/15 documented as of this encounter
--- OUTSIDE RECORDS SUMMARY | 2022-04-29 12:21 | XMS_ITS | Encounter Summary ---
:1950 Author Organization [place] Address [address] [place] [address]. [place] [address] Care Team Providers Name Role Phone Ingrid Santana RN Unavailable Momo Forbes Primary Care Provider Reason for Visit Reason Onset Date Comments Refill Request 04/26/2014 Encounter Details Date Type Department Care Team Description 04/26/2014 Refill Nephrology Shiva Kahn RN Refill Request 2nd Floor, Clinic 2A [facility] Sanders Wangensteen [phone] [place] [address] [place] [phone] Social History Tobacco Use Types Packs/Day [...] transplant documented in this encounter Care Teams Adhesion Tester Relationship Specialty Start Date End Date Momo Forbes PCP - General Family Practice 01/02/14 [facility] [address] [place] [address] Ingrid Santana, RN Registered Nurse Transplant 02/10/12 10/01/15 documented as of this encounter
--- OUTSIDE RECORDS SUMMARY | 2022-04-29 12:21 | XMS_ITS | Encounter Summary ---
:1950 Author Organization [place] Address [address] [place] [address] Care Team Providers Name Role Phone Ingrid Santana RN Unavailable Momo Forbes Primary Care Provider Reason for Visit Reason Onset Date Comments Anticoagulation 04/01/2014 Encounter Details Date Type Department Care Team Description 04/01/2014 Telephone [facility] Joseph Levine , Anticoagulation Anticoagulation Clin ic [facility] [address] [place], [place] [phone] [facility] [phone] [place] [address] 812 [place] [address] (Wo rk) Social History Tobacco [...] Notes Telephone Encounter - Joseph Levine, [facility] - 04/01/2014 5:22 PM CDT INR today was 1.64 I spoke with Diego his proceedure went well. I recommended warfarin 7.5mgs MWF 5mgs all other days He will have an INR on 04/09/14 at his appointment with Dr Rodriguez documented in this encounter Plan of Treatment Not on filedocumented as of this encounter Visit Diagnoses Not on filedocumented in this encounter Care Teams Nursery Nurse Relationship Specialty Start Date End Date Momo Forbes PCP - General Family Practice 01/02/14 [place] [phone] Ingrid Santana, RN Registered Nurse Transplant 02/10/12 10/01/15 documented as of this encounter
--- OUTSIDE RECORDS SUMMARY | 2022-04-29 12:21 | XMS_ITS | Encounter Summary ---
:1950 Author Organization [place] Address [address] [place] [address]. [place] [address] Care Team Providers Name Role Phone Ingrid Santana RN Unavailable Momo Forbes Primary Care Provider Encounter Details Date Type Department Care Team Description 03/18/2014 Orders Only Nephrology Shiva Kahn RN -donor kidney 2nd Floor, Clinic 2A [facility] transplant recipient Tommy Josephensteen [address] [place] [address] [place] [phone] Social History Tobacco Use Types Packs/Day Years [...] transplant documented in this encounter Care Teams Fishing Tool Technician Oil Well Relationship Specialty Start Date End Date Momo Forbes PCP - General Family Practice 01/02/14 [facility] [address] [place] [address] Ingrid Santana RN Registered Nurse Transplant 02/10/12 10/01/15 documented as of this encounter
--- OUTSIDE RECORDS SUMMARY | 2022-04-29 12:21 | XMS_ITS | Encounter Summary ---
:1950 Author Organization [place] Address [facility] [address] Care Team Providers Name Role Phone Ingrid Santana RN Unavailable Momo Forbes Primary Care Provider Reason for Visit Reason Comments RECHECK s/p kidney tx Auth/Cert - Closed Specialty Diagnoses / Procedures Referred By Contact Refer red To Contact Surgery Diagnoses S/P Kidney Transplant Uu Periop Procedures COMBINED CYSTOSCOPY, REMOVE STENT(S) 500 [place] [address] Phone: Fax: Referral ID Status Reason Start Date Expiration Date Visits Requ ested Visits Authorized [id number] Closed 1 1 Encounter Details Date Type Department Care Team Description 04/01/2014 Office Visit Nephrology Deysi Alicea Immunosuppressed status (H) (Primary Dx); 2nd Floor, Clinic MD Aline High risk medication use; 2A [facility] Kidney replaced by ania tTashi DOMÍNGUEZ S/P kidney transplant [place] [address] [place] [address] [place], [place] (Work) [address] [phone] Social History Tobacco Use Types Packs/Day Years [...] -no follow up, I will ask his emergency department coordinator to obtain results from his local [...] at home regularly; BP checked by me hmy324/80; HE was previously on Metoprolol 12.5 mg [...] Years of Education: 14 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
--- OUTSIDE RECORDS SUMMARY | 2022-04-29 12:21 | XMS_ITS | Encounter Summary ---
:1950 Author Organization [place] Address [address] [facility] [place] [address] Care Team Providers Name Role Phone Ingrid Santana RN Unavailable Momo Forbes Primary Care Provider Reason for Visit Auth/Cert - Closed Specialty Diagnoses / Procedures Referred By Contact Refer red To Contact Surgery Diagnoses S/P Kidney Transplant Uu Periop Procedures COMBINED CYSTOSCOPY, REMOVE STENT(S) 500 [place] [address] Phone: Fax: Referral ID Status Reason Start Date Expiration Date Visits Requ ested Visits Authorized [id number] Closed 1 1 Encounter Details Date Type Department Care Team Description 04/01/2014 Anesthesia Event [facility] Clari Torres MD PeriOp Services [facility] ANESTHESIA [address] [place] [address] [place] [address] [place] [address] (Wo rk) Anesthesia Record Procedure Summary Procedure [...] and alternatives discussed with: patient or sales representative printing. I agree with the plan written by [...] Intra-op documented in this encounter Care Teams Crusher Dry Ground Mica Relationship Specialty Start Date End Date Moom Forbes PCP - General Family Practice 01/02/14 [place] [address] Ingrid Santana, RN Registered Nurse Transplant 02/10/12 10/01/15 documented as of this encounter
--- OUTSIDE RECORDS SUMMARY | 2022-04-29 12:21 | XMS_ITS | Encounter Summary ---
:1950 Author Organization [place] Address [address] [facility] [place] [address] Care Team Providers Name Role Phone Ingrid Santana RN Unavailable Momo Forbes Primary Care Provider Reason for Visit Reason Onset Date Comments Anticoagulation 03/29/2014 Encounter Details Date Type Department Care Team Description 03/29/2014 Telephone [facility] Mary Sheffield RN Anticoagulation Anticoagulation Clin ic [address] [place], [place] [address] Social History Tobacco Use [...] \this patient. He has INRs done at [facility] He takes Warfarin 5 mg daily [...] on filedocumented in this encounter Care Teams Field Court Researcher Relationship Specialty Start Date End Date Momo Forbes PCP - General Family Practice 01/02/14 [place] [address] Ingrid Santana, RN Registered Nurse Transplant 02/10/12 10/01/15 documented as of this encounter
--- OUTSIDE RECORDS SUMMARY | 2022-04-29 12:21 | XMS_ITS | Encounter Summary ---
:1950 Author Organization [place] Address [address] [place] [address] Care Team Providers Name Role Phone Ingrid Santana RN Unavailable Momo Forbes Primary Care Provider Encounter Details Date Type Department Care Team Description 03/11/2014 Anesthesia Event [facility] Aly Esquivel MD PeriOp Services [address] [facility] [address] [address] [place], [place] [id number] (Wo rk) Anesthesia Record Procedure Summary Procedure [...] benefits and alternatives discussed with: patient or artist representative. Possibility of blood products discussed. Procedures [...] filedocumented in this encounter Care Teams Lock Corner Machine Operator Relationship Specialty Start Date End Date Momo Forbes PCP - General Family Practice 01/02/14 [facility] [address] [place] [address] Ingrid Santana, RN Registered Nurse Transplant 02/10/12 10/01/15 documented as of this encounter
--- OUTSIDE RECORDS SUMMARY | 2022-04-29 12:21 | XMS_ITS | Encounter Summary ---
:1950 Author Organization [place] Address On license of [facility]0 [facility] [place] [address] Care Team Providers Name Role Phone Ingrid Santana RN Unavailable Momo Forbes Primary Care Provider Reason for Visit Reason Comments Heart Problem 2 m f/u Post op AFIB s/p DCC V. on warfarin 4 weeks Encounter Details Date Type Department Care Team Description 04/09/[address] [facility] Atrial fibrill ation (H) (Primary Dx); [facility] Enrique Maria pecified essential hypertension; Heart Other and unspecified hyperlipidemia; [facility] DM (diabetes mellitus), type 2 (H) Building [place] 4th Floor, Clinic 4B [address] [phone] [place], [place] (Work) [address] [phone] Social History Tobacco Use Types Packs/Day Years [...] questions or concerns. 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 Specific [place] Urine 04/01/2014 1.017 1.003 - 1.035 Final [...] NEG Ketones Urine Negative NEG mg/dL Specific [place] Urine 1.017 1.003 - 1.035 Blood Urine [...] uncontrolled documented in this encounter Care Teams Fuel House Attendant Relationship Specialty Start Date End Date Momo Forbes PCP - General Family Practice 01/02/14 [facility] [address] [place] [address] Ingrid Santana, RN Registered Nurse Transplant 02/10/12 10/01/15 documented as of this encounter
--- OUTSIDE RECORDS SUMMARY | 2022-04-29 12:21 | XMS_ITS | Encounter Summary ---
:1950 Author Organization [place] Address [address] [place] [address]. [place] [address] Care Team Providers Name Role Phone Ingrid Santana RN Unavailable Momo Forbes Primary Care Provider Encounter Details Date Type Department Care Team Description 03/19/2014 Orders Only Nephrology Shiva Kahn RN -donor kidney 2nd Floor, Clinic 2A [facility] transplant recipient Tommy Josephensteen [address] [place] [address] [place] [address] [phone] Social History Tobacco Use Types Packs/Day Years [...] transplant documented in this encounter Care Teams Pneumatic Tool Operator Relationship Specialty Start Date End Date Momo Forbes PCP - General Family Practice 01/02/14 [facility] [address] [place] [address] Ingrid Santana RN Registered Nurse Transplant 02/10/12 10/01/15 documented as of this encounter
--- OUTSIDE RECORDS SUMMARY | 2022-04-29 12:22 | XMS_ITS | Encounter Summary ---
:1950 Author Organization [place] Address [facility] [place] [address] Care Team Providers Name Role Phone Ingrid Santana RN Unavailable Momo Forbes Primary Care Provider Reason for Referral CV Cardio consult - Closed Specialty Diagnoses / Procedures Referred By Contact Refer red To Contact Diagnoses Atrial fibrillation (H) Kaitlynn Leon MD [facility] [place] [address] [place] [address] Fax: Referral ID Status Reason Start Date Expiration Date Visits Requ ested Visits Authorized [id number] Closed 02/12/2014 08/11/2014 1 1 Reason for Visit Reason Comments RECHECK Encounter Details Date Type Department Care Team Description 02/12/2014 Office Visit Specialty Infusion Kaitlynn Leon, S/P liborio ey transplant (Primary Dx); and Procedure Center Atrial fibrillation (H); Arpita [facility] Hypopho sphatemia; Building [place] Nausea; 2nd Floor [address] Immunosuppression (H) [address] [facility] [address] [place], [place] [phone] [address] (Work) [phone] Social History Tobacco Use Types Packs/Day Years [...] Diego Guthrie Thank you for choosing [facility] ([facility]) for your transplant cares. The following information is a summary of our appointment as well as important reminders. Please make sure your phone is available today because I will call to update you with your anti-rejection drug levels and possibly make changes to your anti- rejection dosages. Additional information: -Decrease your coumadin dose to 5 mg every evening -Please return to [facility] on for Labs & assessment -Call us or Leandro Kahn with any questions. -Your Home Care Nurse should begin visits on TuesdayFebruary 14. If you do not hear from them by Tuesday morning, try to reach them at [phone]. We look forward in seeing you on your next appointment here at [facility]. Please don???t hesitate to callus at [phone] to reschedule any of your appointments or to speak with one of the [facility] registered nurses. It was a pleasure taking care of you today. Sincerely, Gladis Olvera RN [facility] - Clinic [address] [place] [address]. [place] [address] documented in this encounter Progress Notes Kaitlynn [...] mechanism documented in this encounter Care Teams Lens Generating Machine Tender Relationship Specialty Start Date End Date Momo Forbes PCP - General Family Practice 01/02/14 [facility] [address] [place] [address] Ingrid Santana, RN Registered Nurse Transplant 02/10/12 10/01/15 documented as of this encounter
--- OUTSIDE RECORDS SUMMARY | 2022-04-29 12:22 | XMS_ITS | Encounter Summary ---
:1950 Author Organization [place] Address [address] [place] [address]. [place] [address] Care Team Providers Name Role Phone Ingrid Santana RN Unavailable Momo Forbes Primary Care Provider Encounter Details Date Type Department Care Team Description 03/01/2014 Orders Only Nephrology Shiva Kahn RN -donor kidney 2nd Floor, Clinic 2A [facility] transplant recipient Tommy Josephensteen [address] [place] [address] [place] [phone] Social History Tobacco Use Types Packs/Day Years [...] transplant documented in this encounter Care Teams Power Project Manager Relationship Specialty Start Date End Date Momo Forbes PCP - General Family Practice 01/02/14 [facility] [address] [place] [address] Ingrid Santana RN Registered Nurse Transplant 02/10/12 10/01/15 documented as of this encounter
--- OUTSIDE RECORDS SUMMARY | 2022-04-29 12:22 | XMS_ITS | Encounter Summary ---
:1950 Author Organization [place] Address [address] [place] [address]. [place] [address] Care Team Providers Name Role Phone Ingrid Santana RN Unavailable Momo Forbes Primary Care Provider Reason for Visit Reason Onset Date Comments Refill Request 02/12/2014 clotrimazole Encounter Details Date Type Department Care Team Description 02/12/2014 Refill Nephrology Kaitlynn Leon MD Refill Request 2nd Floor, Clinic 2A [facility] (clotrimazole) [address] [address] [phone] Social History Tobacco Use Types Packs/Day Years [...] Miscellaneous Notes Telephone Encounter - Lianne Braswell, [facility] - 02/12/2014 8:50 AM CDT Last Fill Date: 02/08/14 Last Fill Quantity: 70 Last Office Visit: 02/11/14 Proactive request, and also requesting a new quantity for a one month supply. Thanks! Lianne Braswell, PharmD [facility] [phone] documented in this encounter Plan of Treatment Not on filedocumented as of this encounter Visit Diagnoses Diagnosis S/P kidney transplant Kidney replaced by transplant documented in this encounter Care Teams Tin Recovery Worker Relationship Specialty Start Date End Date Momo Forbes PCP - General Family Practice 01/02/14 [facility] [address] [place] [address] Ingrid Santana, RN Registered Nurse Transplant 02/10/12 10/01/15 documented as of this encounter
--- OUTSIDE RECORDS SUMMARY | 2022-04-29 12:22 | XMS_ITS | Encounter Summary ---
:1950 Author Organization [place] Address [address] [place] [address]. [place] [address] Care Team Providers Name Role Phone Ingrid Santana RN Unavailable Momo Forbes Primary Care Provider Reason for Visit Reason Onset Date Comments Refill Request 02/15/2014 Encounter Details Date Type Department Care Team Description 02/15/2014 Refill Nephrology Shiva Kahn RN Refill Request 2nd Floor, Clinic 2A [facility] [place] [address] [phone] [place] [address] [place] [phone] Social History Tobacco Use Types Packs/Day [...] on filedocumented in this encounter Care Teams Network Security Consultant Relationship Specialty Start Date End Date Momo Forbes PCP - General Family Practice 01/02/14 [facility] [address] [place], [place] [address] Ingrid Santana, RN Registered Nurse Transplant 02/10/12 10/01/15 documented as of this encounter
--- OUTSIDE RECORDS SUMMARY | 2022-04-29 12:22 | XMS_ITS | Encounter Summary ---
:1950 Author Organization [place] Address [facility] hospital0 [facility] [place] [address] Care Team Providers Name Role Phone Ingrid Santana RN Unavailable Momo Forbes Primary Care Provider Encounter Details Date Type Department Care Team Description 02/11/2014 Radiant Appointment [facility] 1st Floor, Clinic 1D [place], [place] [address] Social History Tobacco Use Types Packs/Day Years [...] on filedocumented in this encounter Care Teams Hull Sorter Relationship Specialty Start Date End Date Momo Forbes PCP - General Family Practice 01/02/14 [facility] [address] [place] [address] Ingrid Santana RN Registered Nurse Transplant 02/10/12 10/01/15 documented as of this encounter
--- OUTSIDE RECORDS SUMMARY | 2022-04-29 12:22 | XMS_ITS | Encounter Summary ---
:1950 Author Organization [place] Address [facility]0 [facility] [place] [address] Care Team Providers Name Role Phone Ingrid Santana RN Unavailable Momo Forbes Primary Care Provider Reason for Visit Reason Comments Eval/Assessment LBA Encounter Details Date Type Department Care Team Description 02/11/2014 Office Visit Specialty Infusion Kaitlynn Leon, Complica tion of transplanted kidney (Primary Dx); and Procedure Center Anemia; [place] [facility] HTN (hy pertension); [facility] Immunosuppression (H); 2nd Floor [address] Hypophosphatemia 6 [facility] [address] [place], [place] [phone] [address] (Work) [phone] Social History Tobacco Use Types Packs/Day Years [...] Years of Education: 14 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 Discharge: 02/08/2014 Using Medcard: Yes Med review: Went over all meds and dosing with patient and Tete. Went over Prograf and Cellcept side effects. Medication questions/concerns: Patient requested that we transfer 4 rx's (to profile) from local pharmacy to us here. Pt wants us to get Zofran filled for supervisor steffen house 02/12- new dose of 2 Q6-8H PRN. Using medbox: Yes Viewed DVD: Didn't bring up Pain: #2-3, feels good, rarely using Oxycodone Other Concerns: none No further questions for this pharmacist. Yi Londono [facility] [phone] documented in this encounter Plan of Treatment [...] Signature INR 2.28 (H) 0.86 - 1.14 [facility] Specimen Anatomical Collection Method Collection Time Receive d Time (Source) Location / / Volume Laterality 02/11/2014 9:30 AM 4 9:41 CDT AM CDT Kaitlynn Leon MD LAB - BLOOD ORDERABLES Performing Organization Address City/State/ZIP Code Phon e Number [facility] [address] [place], [place] [phone] [place] [address] LABS documented in this encounter Visit Diagnoses Diagnosis Complication of transplanted kidney - Pr imary Complications of transplanted kidney Anemia Anemia, unspecified HTN (hypertension) Unspecified essential hypertension Immunosuppression (H) Unspecified disorder of immune mechanism Hypophosphatemia Disorders of phosphorus metabolism documented in this encounter Care Teams Lubrication Worker Relationship Specialty Start Date End Date Momo Forbes PCP - General Family Practice 01/02/14 [facility] [address] [place] [address] Ingrid Santana, RN Registered Nurse Transplant 02/10/12 10/01/15 documented as of this encounter
--- OUTSIDE RECORDS SUMMARY | 2022-04-29 12:22 | XMS_ITS | Encounter Summary ---
:1950 Author Organization [place] Address [facility] [place] [address] Care Team Providers Name Role Phone Ingrid Santana RN Unavailable Momo Forbes Primary Care Provider Reason for Visit Reason Comments Surgical Followup kidney tx 02/02/14 Encounter Details Date Type Department Care Team Description 02/25/2014 Office Visit Transplant Surgery Migel Merchant Hypophosp hatemia (Primary Dx); Clinic MD aNthan Kidney replaced by transplant; 2nd Floor, Clinic 2A [address] [place] -donor kidney transp lant recipient; [address] 1 95 High risk medications (not anticoagulant s) long-term use; Building penitentiary (current) use of anticoagulant s; 6 [place], [place]; [place] [address] Orthostatic hypotension [facility] 88 [place], [place] (Work) [phone] Social History Tobacco Use [...] mid wound(lemon sized) c/w known hematoma. Procedure: Drake and drain removed. Steri strips applied. Hematology: [...] will give mag and phos prescription. 5. Drake - Out today 6 Drain -- out [...] sults (not anticoagulants) section . long-term use salvage determiner (current) use of anticoagulants PHOSPHORUS Routine 02/25/2014 [...] Component Value Ref Test Analysis Performed At [facility] Range Method Time Signature BK Virus DNA Plasma, EDTA [facility] Quant Source anticoagulant [facility] BK Virus DNA <390 [facility] Quant Unit: cpy/mL UNIVERSITY Copy/mL [facility] BK Virus DNA <2.6 [facility] Quant Log Unit: log [facility] (Note) [facility] INTERPRETIVE INFORMATION: BK Virus, Quantitation by [...] methodologies. Test developed and characteristics determined by [employer]. See Compliance Statement A: [employer]Check[employer]/CS BK Virus DNA Not Detected [facility] Quant Interp Reference range: Not Detected [facility] (Note) [facility] Performed by [employer], [address] [place] [id number] [email or web address], Kj Mcmillan MD, Lab. Director Specimen Anatomical Collection Method Collection Time Receive d Time (Source) Location / / Volume Laterality Blood specimen 02/25/2014 10:54 4 (specimen) AM CDT 10:55 AM CDT Deysi Alicea MD LAB - MICRO GENERAL ORDERABL ES Performing Organization Address City/[facility]/ZIP Code Phon e Number [address] [facility] LABS Immunology recipient: SOT PRA (Post Tx for Donor Spec Antibody) (02/25/2014 10:54 AM CDT) [facility] Method Time Signature Immunology PRA [facility] Test Name [facility] Immunology Specimen [facility] Result received - [facility] LABS report to follow upon completion. Specimen Anatomical Collection Method Collection Time Receive d Time (Source) Location / / Volume Laterality Blood specimen 02/25/2014 10:54 4 (specimen) AM CDT 10:55 AM CDT Deysi Alicea MD LAB - IMMUNOLOGY ORDERABLES Performing Organization Address City/[facility]/ZIP Code Phon e Number [address] LABS (ABNORMAL) INR (02/25/2014 10:53 AM CDT) P athologist Signature INR 2.39 (H) 0.86 - 1.14 [facility] LABS Specimen Anatomical Collection Method Collection Time Receive d Time (Source) Location / / Volume Laterality Blood specimen 02/25/2014 10:53 4 (specimen) AM CDT 10:54 AM CDT Migel Merchant MD LAB - BLOOD ORDERABLES Performing Organization Address City/[facility] [[email or web address]] Code Phon e Number [address] LABS (ABNORMAL) Magnesium (02/25/2014 10:53 AM CDT) P athologist Signature Magnesium 1.5 (L) 1.6 - 2.3 [facility] mg/dL [facility] Specimen Anatomical Collection Method Collection Time Receive d Time (Source) Location / / Volume Laterality Blood specimen 02/25/2014 10:53 4 (specimen) AM CDT 10:54 AM CDT Deysi Alicea MD LAB - BLOOD ORDERABLES Performing Organization Address City/State/ZIP Code Phon e Number [address] LABS (ABNORMAL) Phosphorus (02/25/2014 10:53 AM CDT) P athologist Signature Phosphorus 1.3 (L) 2.5 - 4.5 [facility] mg/dL [facility] Specimen Anatomical Collection Method Collection Time Receive d Time (Source) Location / / Volume Laterality Blood specimen 02/25/2014 10:53 4 (specimen) AM CDT 10:54 AM CDT Deysi Alicea MD LAB - BLOOD ORDERABLES Performing Organization Address [facility] [[email or web address]] Code Phon e Number [facility] [address] LABS Mycophenolic acid (02/25/2014 10:53 AM CDT) Component Value Ref Test Analysis Performed At [facility] gist Range Method Time Signature Last [...] - BLOOD ORDERABLES Performing Organization Address City/[facility]/ZIP Code Phon e Number [facility] [address] LABS Tacrolimus level (02/25/2014 10:53 AM CDT) [facility] gist Method Time Signature Tacrolimus 02/24/14 ?1999 [facility] Last Dose CORRECTED ON 02/25 AT 1055: PREVIOUSLY REPORTED 1999 [facility] Tacrolimus 9.1 5.0 - [facility] Level 15.0 ug/L [facility] Comment: Tacrolimus Reference Range Kidney Transplant [...] Code Phon e Number [facility] [address] LABS (ABNORMAL) Basic metabolic panel (02/25/2014 10:53 AM CDT) [facility] gist Method Time Signature Sodium 137 133 - 144 [facility] mmol/L [facility] Potassium 4.6 3.4 - 5.3 [facility] mmol/L [facility] Chloride 108 94 - 109 [facility] mmol/L [facility] Carbon Dioxide 19 (L) 20 - 32 [facility] mmol/L [facility] Anion Gap 10 6 - 17 [facility] mmol/L [facility] Glucose 217 (H) 60 - 99 [facility] mg/dL [facility] Urea Nitrogen 13 7 - 30 [facility] mg/dL [facility]S Creatinine 1.48 (H) 0.66 - [facility] 1.25 mg/dL [facility] GFR Estimate 48 (L) >60 [facility] mL/min/1.7 [facility] m2 CAMPUS LABS GFR Estimate If 58 (L) >60 [facility] Black mL/min/1.7 [place] [address] CAMPUS LABS Calcium 9.6 8.5 - 10.4 [facility] mg/dL [facility] Specimen Anatomical Collection Method Collection Time Receive d Time (Source) Location / / Volume Laterality Blood specimen 02/25/2014 10:53 4 (specimen) AM CDT 10:54 AM CDT Deysi Alicea MD LAB - BLOOD ORDERABLES Performing Organization Address City/State/ZIP Code Phon e Number [address] [address] [facility] ([facility]NORMAL) CBC with platelets differential (02/25/2014 10:53 AM CDT) [facility] gist Method Time Signature WBC 4.9 4.0 - [facility] 11.0 UNIVERSITY 10e9/L CAMPUS LABS RBC Count 2.67 (L) 4.4 - 5.9 [facility] 10e12/L [facility] Hemoglobin 7.8 (L) 13.3 - [facility] 17.7 g/dL [facility] Hematocrit 23.5 (L) 40.0 - [facility] 53.0 % [facility] MCV 88 78 - 100 [facility] fl [facility] MCH 29.2 26.5 - [facility] 33.0 pg [facility] MCHC 33.2 31.5 - [facility] 36.5 g/dL [facility] RDW 14.3 10.0 - [facility] 15.0 % [facility] Platelet Count 179 150 - 450 [facility] 10e9/L [facility] Diff Method Automated [facility] Method [facility] % Neutrophils 89.4 % [facility] LABS % Lymphocytes 3.9 % [facility] LABS % Monocytes 5.1 % [facility] % Eosinophils 1.2 % [facility] % Basophils 0.2 % [facility] % Immature 0.2 % [facility] Granulocytes [facility] Absolute 4.4 1.6 - 8.3 [facility] Neutrophil 10e9/L [facility] Absolute 0.2 (L) 0.8 - 5.3 [facility] Lymphocytes 10e9/L [facility] Absolute 0.3 0.0 - 1.3 [facility] Monocytes 10e9/L [facility] Absolute 0.1 0.0 - 0.7 [facility] Eosinophils 10e9/L [facility] Absolute 0.0 0.0 - 0.2 [facility] Basophils 10e9/L [facility] Abs Immature 0.0 0 - 0.4 [facility] Granulocytes 10e9/L [facility] Specimen Anatomical Collection Method Collection Time Receive d Time (Source) Location / / Volume Laterality Blood specimen 02/25/2014 10:53 4 (specimen) AM CDT 10:54 AM CDT Dyesi Alicea MD LAB - BLOOD ORDERABLES Performing Organization Address City/State/ZIP Code Phon e Number [facility] 500 [place] [address] [facility] LABS documented in this encounter Visit Diagnoses Diagnosis 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 replaced by transplant -donor kidney transplant recipie nt Kidney replaced by transplant High risk medications (not anticoagulant s) long-term use Encounter for long-term (current) use of other medications penitentiary (current) use of anticoagulant s Long-term (current) use of anticoagulant s Hypomagnesemia Disorders of magnesium metabolism Orthostatic hypotension documented in this encounter Care Teams Freight Agent Relationship Specialty Start Date End Date Momo Forbes PCP - General Family Practice 01/02/14 [facility] [address] [place] [address] Ingrid Santana, RN Registered Nurse Transplant 02/10/12 10/01/15 documented as of this encounter
--- OUTSIDE RECORDS SUMMARY | 2022-04-29 12:22 | XMS_ITS | Encounter Summary ---
:1950 Author Organization [place] Address [address] [place] [address] Care Team Providers Name Role Phone Ingrid Santana RN Unavailable Momo Forbes Primary Care Provider Encounter Details Date Type Department Care Team Description 02/19/2014 Orders Only [employer], [facility], [facility] [place] [phone] [place] [address] 038 [place] [address] (Wo rk) Social History Tobacco [...] Results Tacrolimus level (03/19/2014 9:05 AM CDT) [facility] Method Time Signature Tacrolimus Last 03/18/14 [facility] Dose 2100 [facility] Tacrolimus 13.1 5.0 - [facility] Level 15.0 ug/L [facility] LAB[facility] Comment: Tacrolimus Reference Range Kidney Transplant [...] Phon e Number [facility] 500 [place], [place] [id number] [place] [address] [facility] Tacrolimus level (03/12/2014 9:40 AM CDT) [facility] gist Method Time Signature Tacrolimus Not Provided [facility] Last Dose [facility] Tacrolimus 7.3 5.0 - [facility] Level 15.0 ug/L [facility] Comment: Tacrolimus Reference Range Kidney Transplant [...] Phon e Number [facility] 500 [place], [place] [phone] [place] [address] [facility] Tacrolimus level (03/08/2014 10:15 AM CDT) [facility] gist Method Time Signature Tacrolimus Last 03/07/14 [facility] Dose 2000 [facility]S Tacrolimus 6.1 5.0 - [facility] Level 15.0 ug/L [facility] Comment: Tacrolimus Reference Range Kidney Transplant [...] Phon e Number [facility] 500 [place], [place] [phone] [place] [address] [facility] Tacrolimus level (03/06/2014 5:13 PM CDT) [facility] gist Method Time Signature Tacrolimus Last 1400 [facility] Dose 03/05/14 [facility] Tacrolimus 11.3 5.0 - [facility] Level 15.0 ug/L [facility] Comment: Tacrolimus Reference Range Kidney Transplant [...] Phon e Number [facility] 500 [place], [place] [phone] [place] [address] [facility] Tacrolimus level (03/01/2014 8:10 AM CDT) [facility] gist Method Time Signature Tacrolimus Last 02/28/14 [facility] Dose 1930 [facility] Tacrolimus 10.6 5.0 - [facility] Level 15.0 ug/L [facility] Comment: Tacrolimus Reference Range Kidney Transplant [...] [facility] Code Phon e Number [facility] 500 [place], [place] [phone] [place] [address] [facility] Tacrolimus level (02/27/2014 8:15 AM CDT) [facility] gist Method Time Signature Tacrolimus Last 02/26/14 [facility] Dose 2000 [facility] Tacrolimus 11.4 5.0 - [facility] Level 15.0 ug/L [facility] Comment: Tacrolimus Reference Range Kidney Transplant [...] - BLOOD ORDERABLES Performing Organization Address City/[facility] Code Phon e Number [facility] 500 [place], [place] [phone] [place] [address] LABS HLA Lukasz Class II Single Antigen (02/25/2014 10:43 AM CDT) Component Value Ref Test Analysis Performed At [facility] gist Range Method Time Signature SA2 [...] City/State/ZIP Code Phon e Number [facility] Immunology/[place] [address] [facility] 500 [facility] [address] Building, Room 3-580 HISTOTRAC HLA Lukasz Class I Single Antigen (02/25/2014 10:43 AM CDT) Component Value Ref Test Analysis Performed At [facility] gist Range Method Time Signature SA1 [...] LAB - IMMUNOLOGY ORDERABLES Performing Organization Address City/[facility]/ZIP Code Phon e Number [facility] Immunology/[place] [address] [facility] 500 [facility] [address] Building, Room 3-580 HISTOTRAC PRA Interfering Substance SCR (02/25/2014 10:43 AM CDT) Component Value Ref Test Analysis Performed At [facility] gist Range Method Time Signature Interfering [...] Code Phon e Number [facility] Immunology/Histocompatabil [place], [place] [address] [facility] 500 [facility] [address] Building, Room 3-580 HISTOTRAC Tacrolimus level (02/21/2014 8:45 AM CDT) [facility] gist Method Time Signature Tacrolimus Last 02/20/14 [facility] Dose 2000 [facility] Tacrolimus 7.9 5.0 - [facility] Level 15.0 ug/L [facility] Comment: Tacrolimus Reference Range Kidney Transplant [...] Phon e Number [facility] 500 [place] [address] [facility] LABS documented in this encounter Visit Diagnoses Not on filedocumented in this encounter Care Teams Production Support Specialist Relationship Specialty Start Date End Date Momo Forbes PCP - General Family Practice 01/02/14 [facility] [address] [place] [address] Ingrid Santana, RN Registered Nurse Transplant 02/10/12 10/01/15 documented as of this encounter
--- OUTSIDE RECORDS SUMMARY | 2022-04-29 12:22 | XMS_ITS | Encounter Summary ---
:1950 Author Organization [place] Address [facility] [address] Care Team Providers Name Role Phone Ingrid Santana RN Unavailable Momo Forbes Primary Care Provider Reason for Visit Reason Comments Eval/Assessment LBA Encounter Details Date Type Department Care Team Description 02/11/2014 Infusion Therapy Specialty Infusion Finger, Migel Mac y replaced by Visit and Procedure MD Nathan transplant (Primary Center [address] [place] [address] Dx) [facility] 19 5 n [facility] 2nd Floor [address] [phone] [place], [place] (Work) [phone] Social History Tobacco Use [...] - 02/11/2014 4:56 PM CDT Dear Diego Guthire Thank you for choosing [facility] ([facility]) for your transplant cares. The [...] regarding the result at your appointment in [facility] tomorrow. We look forward in seeing you on your next appointment here at [facility]. Please don???t hesitate to callus at [phone] to reschedule any of your appointments or to speak with one of the [facility] registered nurses. It was a pleasure taking care of you today. Sincerely, Gladis Olvera, RN [facility] [address] [place] [address] documented in this encounter Progress Notes Gladis Olvera RN - 02/11/2014 8:43 AM CDT Diego Guthrie came to [facility] today for a lab and assess following a Kidney transplant on 02/02/14. Discharge date: 02/08/14 mortgage coordinator: Leandro Kahn Phone number patient can be reached at: [phone] Physical Assessment: See physical assessment located under Document Flowsheets. Incision site: Dry dressing with modesta. Dressing changed. Small amt oozing, Small amt ecchymosis. Pt instructed on signs/symptoms of infection. Some swelling under incision, pt has known hematoma andwill have a renal ultrasound today at 2pm. Lines: MARGARET drain to bulb suction, serosanguinous drainage. 20 ml at [facility] appointment today. Gibbs: n/a Urine clarity: clear per patient report Hydration: discussed drinking 2-3 L daily Nutrition: Pt states appetite is improving Last BM: 02/10/14 evening Pain: 2 at rest, 5 with activity. Pain adequately controlled with home medications Laboratory tests: Standard labs drawn. Plan of care for today: Pt presents to [facility] for Labs & Assessment following Kid Txp on 02/02/14. Pt's creatinine up to 1.97 today, but ok per Dr. Leon considering the complications with transplant. Hgb 7.4 and pt c/o slight fatigue. Discussed with Dr. Leon and will hold off on a transfusion for now, but will continue to monitor hgb at [facility] appointments over the next 2 days. INR 2.23, EKG obtained and pt found to be in Normal Sinus Rhythm. Pt will remain on coumadin for now and will follow up with a equipment coordinator near [facility]. Continue daily INRs while pt is coming to [facility]. Pt's MARGARET continues to drain more [...] Discharge Plan Pt will follow up with [facility] tomorrow. 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/Auto Glass Technician verbalized understanding, all questions answered: YES Discharged [...] Results Tacrolimus level (02/11/2014 7:40 AM CDT) [facility] gist Method Time Signature Tacrolimus Last 02/10/14 [facility] Dose 2000 [facility] LABS Tacrolimus 12.2 5.0 - [facility] Level 15.0 ug/L [facility] LABS Comment: Tacrolimus Reference Range [...] Phon e Number [facility] 500 [place] [address] [facility] LABS (ABNORMAL) CBC with platelets differential (02/11/2014 7:40 AM CDT) [facility] gist Method Time Signature WBC 4.4 4.0 - [facility] 11.0 [facility] 10e9/L [facility] RBC Count 2.39 (L) 4.4 - 5.9 [facility] 10e12/L [facility] LABS Hemoglobin 7.4 (L) 13.3 - [facility] 17.7 g/dL [facility] LABS Hematocrit 22.1 (L) 40.0 - [facility] 53.0 % [facility] LABS MCV 93 78 - 100 [facility] fl [facility] LABS MCH 31.0 26.5 - [facility] 33.0 pg [facility] LABS MCHC 33.5 31.5 - [facility] 36.5 g/dL [facility] LABS RDW 14.7 10.0 - [facility] 15.0 % [facility] LABS Platelet Count 83 (L) 150 - 450 [facility] 10e9/L [facility] LABS Diff Method Automated [facility] LABS % Neutrophils 80.4 % [facility] LABS % Lymphocytes 8.2 % [facility] LABS % Monocytes 5.2 % [facility] LABS % Eosinophils 5.7 % [facility] LABS % Basophils 0.0 % [facility] LABS % Immature 0.5 % [facility] Granulocytes [facility] LABS Absolute 3.5 1.6 - [...] Phon e Number [facility] [address] LABS (ABNORMAL) Phosphorus (02/11/2014 7:40 AM CDT) P athologist Signature Phosphorus 1.9 (L) 2.5 - 4.5 [facility] mg/dL CAMPUS LABS Specimen Anatomical Collection Method Collection Time Receive d Time (Source) Location / / Volume Laterality Blood specimen 02/11/2014 7:40 AM 014 7:41 (specimen) CDT AM CDT Kaitlynn Leon MD LAB - BLOOD ORDERABLES Performing Organization Address City/State/ZIP Code Phon e Number [facility] [address] LABS Magnesium (02/11/2014 7:40 AM CDT) P athologist Signature Magnesium 1.9 1.6 - 2.3 [facility] mg/dL CAMPUS LABS Specimen Anatomical Collection Method Collection Time Receive d Time (Source) Location / / Volume Laterality Blood specimen 02/11/2014 7:40 AM 014 7:41 (specimen) CDT AM CDT Kaitlynn Leon MD LAB - BLOOD ORDERABLES Performing Organization Address City/State/ZIP Code Phon e Number [facility] [address] LABS (ABNORMAL) Basic metabolic panel (02/11/2014 7:40 AM CDT) [facility] Method Time Signature Sodium 142 133 - 144 [facility] mmol/L [facility] LABS Potassium 5.4 (H) 3.4 - 5.3 [facility] mmol/L [facility] LABS Chloride 113 (H) 94 - 109 [facility] mmol/L [facility] LABS Carbon Dioxide 22 20 - 32 [facility] mmol/L [facility] LABS Anion Gap 8 6 - 17 [facility] mmol/L [facility] LABS Glucose 155 (H) 60 - 99 [facility] mg/dL [facility] LABS Urea Nitrogen 31 (H) 7 - 30 [facility] mg/dL [facility] LABS Creatinine 1.97 (H) 0.66 - [facility] 1.25 mg/dL [facility] LABS GFR Estimate 35 (L) >60 [facility] mL/min/1.7 [place] m2 [facility] GFR Estimate If 42 (L) >60 [facility] Black mL/min/1.7 [place] m2 [facility] LABS Calcium 9.1 8.5 - 10.4 [facility] mg/dL [facility] LABS Specimen Anatomical Collection Method Collection Time Receive d Time (Source) Location / / Volume Laterality Blood specimen 02/11/2014 7:40 AM 014 7:41 (specimen) CDT AM CDT Kaitlynn Leon MD LAB - BLOOD ORDERABLES Performing Organization Address City/State/ZIP Code Phon e Number [address] [address] [facility] LABS documented in this encounter Visit Diagnoses Diagnosis Kidney replaced by transplant - Primary documented in this encounter Care Teams Cashier Office Relationship Specialty Start Date End Date Momo Forbes PCP - General Family Practice 01/02/14 [facility] [address] [place] [address] Ingrid Santana, RN Registered Nurse Transplant 02/10/12 10/01/15 documented as of this encounter
--- OUTSIDE RECORDS SUMMARY | 2022-04-29 12:22 | XMS_ITS | Encounter Summary ---
:1950 Author Organization [place] Address [facility] [place] [address] Care Team Providers Name Role Phone Ingrid Santana RN Unavailable Momo Forbes Primary Care Provider Encounter Details Date Type Department Care Team Description 02/18/2014 Orders Only Nephrology Shiva Kahn RN -donor kidney transplant recipie nt (Primary Dx); 2nd Floor, Clinic 2A [facility] Kidney replaced by transplant; Tommy Wangensteen [address] [facility] S/P kidney transplant Building [address] [place] [phone] Social History Tobacco Use Types Packs/Day Years [...] transplant documented in this encounter Care Teams Starch Crab Relationship Specialty Start Date End Date Forbes, Ton PCP - General Family Practice 01/02/14 [facility] [address] [place] [address] Ingrid Santana, RN Registered Nurse Transplant 02/10/12 10/01/15 documented as of this encounter
--- OUTSIDE RECORDS SUMMARY | 2022-04-29 12:22 | XMS_ITS | Encounter Summary ---
:1950 Author Organization [place] Address [address] [place] [address]. [place] [address] Care Team Providers Name Role Phone Ingrid Santana RN Unavailable Momo Forbes Primary Care Provider Encounter Details Date Type Department Care Team Description 02/11/2014 Orders Only Nephrology Josseline Nice, Kidney replaced by 2nd Floor, Clinic 2A REHABILITATION SUPERVISOR transplant (Primary Sanders Wangfelisa Dx) [address] [phone] Social History Tobacco Use Types Packs/Day Years [...] Primary documented in this encounter Care Teams Information Systems Administrator Relationship Specialty Start Date End Date Momo Forbes PCP - General Family Practice 01/02/14 [facility] [address] [place] [address] Ingrid Santana RN Registered Nurse Transplant 02/10/12 10/01/15 documented as of this encounter
--- OUTSIDE RECORDS SUMMARY | 2022-04-29 12:22 | XMS_ITS | Encounter Summary ---
:1950 Author Organization [place] Address [facility] [place] [address] Care Team Providers Name Role Phone Ingrid Santana RN Unavailable Momo Forbes Primary Care Provider Reason for Visit Reason Comments Eval/Assessment LBA Encounter Details Date Type Department Care Team Description 02/12/2014 Infusion Therapy Specialty Infusion Finger, Migel Mac y replaced by Visit and Procedure MD Nathan transplant (Primary Center [address] [place] [address] Dx) [facility] 19 5 n [facility] 2nd Floor [address] [phone] [place], [place] (Work) [address] Social History Tobacco Use [...] Dear Diego Guthrie Thank you for choosing [facility] Specialty Infusion and Procedure Center ([facility]) for your transplant cares. The following information is a summary of our appointment as well as important reminders. Additional information: We will see you on for labs & assessment. We look forward in seeing you on your next appointment here at [facility]. Please don???t hesitate to callus at [phone] to reschedule any of your appointments or to speak with one of the [facility] registered nurses. It was a pleasure taking care of you today. Sincerely, Gladis Olvera, BOGDAN [facility] Specialty Infusion & Procedure Center [facility] [address] [place] [address]. [place] [id number] January 2014Tuesday 1 2 3 4 5 6 7 8 9 10 11 12 13 14 Admission 12:55 PM Migel Merchant MD Unit 7A [facility] [place] (Discharge: 02/08/2014) XR CHEST 2 VIEWS 1:55 PM (10 min.) Uuxr1 [facility], Radiology TRANSPLANT KIDNEY RECIPIENT DONOR 4:00 PM Migel Merchant MD UU OR XR CHEST PORT 2 VIEWS 11:10 PM (15 min.) Uuxrph1 [facility], Radiology 15 US RENAL TRANSPLANT 7:50 AM (50 min.) Uuus2 [facility], Ultrasound 16 IP EVALUATION 6:00 AM (60 min.) Angela Wilder, PT [facility], Physical Therapy UU TRANSPLANT MEDICATIONS 11:00 AM (120 min.) Josseline Almendarez RN [facility] Patient [facility] [place] UU TRANSPLANT FOLLOW-UP CARE 1:00 PM (120 min.) Josseline Almendarez RN [facility], Patient Learning [place] ECH LIMITED 3:35 PM (60 min.) Uuechipr1 [facility], Echocardiography 17 IP TREATMENT 5:30 AM (30 min.) Roderick Lawson, PT [facility], Physical Therapy 18 IP TREATMENT 5:30 AM (30 min.) Yesenia Rodriguez, PT [facility], Physical Therapy 19 IP TREATMENT 5:30 AM (30 min.) Reina Kenny, PT [facility], Physical Therapy US RENAL 11:15 AM (60 min.) Uuus2 [facility], Ultrasound 20 IP TREATMENT 5:30 AM (30 min.) Reina Kenny, PT [facility], Physical Therapy UU TRANSPLANT MEDICATIONS 11:00 AM (120 min.) Em Mohan RN [facility] [place] 21 [facility] NEW TRANSPLANT 7:00 AM (360 min.) [facility] Sipc Chair 9 Specialty Infusion and Procedure Center 22 [facility] NEW TRANSPLANT 7:00 AM (360 min.) [facility] Sipc Chair 11 Specialty Infusion and Procedure Center 23 [facility] NEW TRANSPLANT 7:00 AM (360 min.) [facility] Sip Chair 12 Specialty Infusion and Procedure Center [facility] KIDNEY TX DISCHARGE 9:00 AM (30 min.) Kaitlynn Leon MD Specialty Infusion and Procedure Center US RENAL TRANSPLANT 2:00 PM (60 min.) [address] 24 [facility] NEW TRANSPLANT 7:00 AM (360 min.) [facility] Sipc Bed 14 Specialty Infusion and Procedure Center [facility] SIPC RETURN 9:00 AM (30 min.) Kaitlynn Leon MD Specialty Infusion [facility] Procedure Center 25 26 [facility] SIPC PROCEDURE 7:00 AM (60 min.) [facility] Sipc Chair 9 Specialty Infusion and Procedure Center [facility] SIPC RETURN 8:00 AM (30 min.) Kaitlynn Leon MD Specialty Infusion and Procedure Center 27 28 29 30 [facility] NEW 9:00 AM (30 min.) [facility] Cvc Consult [facility] Physicians Heart [facility] KIDNEY POST OP 1:45 PM (15 [...] 4:27 PM CDT Diego Guthrie came to [facility] today for a lab and assess following a Kidney transplant on 02/02/14. Discharge date: 02/08/14 business office coordinator: Leandro Kahn Phone number patient can be reached at: [phone] Physical Assessment: See physical assessment located under Document Flowsheets. Incision site: with modesta & slight ecchymosis. Dry dressing changed. Lines: MARGARET drain to bulb suction is draining sero sanguinous fluid. Continues to drain more than 30 ml/day. Pt will have Tuesday off from [facility] and will return for LBA. Gibbs: N/A [...] of care for today: Pt presented to [facility] for labs and assessment. Labs drawn, reviewed with Dr. Leon. Oral phosphorus tablets ordered. Coumadin dose decreased to 5 mg every evening. Pt will have Tuesday off, return and will start with [facility] on TuesdayFebruary 15. Pt's MARGARET remains [...] Discharge Plan Pt will follow up with [facility] on 02/14 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/Office Professionals verbalized understanding, all questions answered: YES Discharged [...] Signature INR 2.64 (H) 0.86 - 1.14 [facility] LABS Specimen Anatomical Collection Method Collection Time Receive d Time (Source) Location / / Volume Laterality Blood specimen 02/12/2014 7:41 AM 014 7:43 (specimen) CDT AM CDT Kaitlynn Leon MD LAB - BLOOD ORDERABLES Performing Organization Address City/State/ZIP Code Phon e Number [facility] [address] [place] [address] [facility] LABS Tacrolimus level (02/12/2014 7:41 AM CDT) [facility] gist Method Time Signature Tacrolimus Last 02/11/14 [facility] Dose 1900 [facility] LABS Tacrolimus 8.4 5.0 - [facility] Level 15.0 ug/L [facility] LABS Comment: Tacrolimus Reference Range Kidney [...] Organization Address City/State/ZIP Code Phon e Number [address] [address] [place] [facility] ([facility] CBC with platelets differential (02/12/2014 7:41 AM CDT) [facility] gist Method Time Signature WBC 5.0 4.0 - [facility] 11.0 [facility] 10e9/L CAMPUS LABS RBC Count 2.41 (L) 4.4 - 5.9 [facility] 10e12/L [facility] LABS Hemoglobin 7.4 (L) 13.3 - [facility] 17.7 g/dL [facility] LABS Hematocrit 22.3 (L) 40.0 - [facility] 53.0 % [facility] LABS MCV 93 78 - 100 [facility] fl [facility] LABS MCH 30.7 26.5 - [facility] 33.0 pg [facility] LABS MCHC 33.2 31.5 - [facility] 36.5 g/dL [facility] LABS RDW 14.5 10.0 - [facility] 15.0 % [facility] LABS Platelet Count 95 (L) 150 - 450 [facility] 10e9/L [facility] LABS Diff Method Automated [facility] Method [facility] LABS % Neutrophils 85.2 % [facility] LABS % Lymphocytes 5.6 % [facility] LABS % Monocytes 4.6 % [facility] LABS % Eosinophils 4.2 % [facility] LABS % Basophils 0.2 % [facility] LABS % Immature 0.2 % [facility] Granulocytes [facility] LABS Absolute 4.3 1.6 - 8.3 [facility] Neutrophil 10e9/L [facility] LABS Absolute 0.3 (L) 0.8 - 5.3 [facility] Lymphocytes 10e9/L [facility] LABS Absolute 0.2 0.0 - 1.3 [facility] Monocytes 10e9/L [facility]S Absolute 0.2 0.0 - 0.7 [facility] Eosinophils 10e9/L [facility] LABS Absolute 0.0 0.0 - 0.2 [facility] Basophils 10e9/L [facility] LABS Abs Immature 0.0 0 - 0.4 [facility] Granulocytes 10e9/L [facility] LABS Specimen Anatomical Collection Method Collection Time Receive d Time (Source) Location / / Volume Laterality Blood specimen 02/12/2014 7:41 AM 014 7:43 (specimen) CDT AM CDT Naim S Edward MD LAB - BLOOD ORDERABLES Performing Organization Address City/State/ZIP Code Phon e Number [facility] [address] LABS (ABNORMAL) Phosphorus (02/12/2014 7:41 AM CDT) athologist Signature Phosphorus 1.7 (L) 2.5 - 4.5 [facility] mg/dL [place] LABS Specimen Anatomical Collection Method Collection Time Receive d Time (Source) Location / / Volume Laterality Blood specimen 02/12/2014 7:41 AM 014 7:43 (specimen) CDT AM CDT Kaitlynn Leon MD LAB - BLOOD ORDERABLES Performing Organization Address City/State/ZIP Code Phon e Number [facility] [address] [place], [place] [phone] [place] [address] LABS Magnesium (02/12/2014 7:41 AM CDT) athologist Signature Magnesium 1.8 1.6 - 2.3 [facility] mg/dL [place] LABS Specimen Anatomical Collection Method Collection Time Receive d Time (Source) Location / / Volume Laterality Blood specimen 02/12/2014 7:41 AM 014 7:43 (specimen) CDT AM CDT Kaitlynn Leon MD LAB - BLOOD ORDERABLES Performing Organization Address City/State/ZIP Code Phon e Number [facility] [address] [place], [place] [phone] [place] [address] LABS (ABNORMAL) Basic metabolic panel (02/12/2014 7:41 AM CDT) [facility] gist Method Time Signature Sodium 142 133 - 144 [facility] mmol/L [facility] LABS Potassium 4.9 3.4 - 5.3 [facility] mmol/L [facility] LABS Chloride 113 (H) 94 - 109 [facility] mmol/L [facility] LABS Carbon Dioxide 21 20 - 32 [facility] mmol/L [facility] LABS Anion Gap 9 6 - 17 [facility] mmol/L [facility] LABS Glucose 127 (H) 60 - 99 [facility] mg/dL [facility] LABS Urea Nitrogen 24 7 - 30 [facility] mg/dL [facility] LABS Creatinine 1.92 (H) 0.66 - [facility] 1.25 mg/dL [facility] LAB[facility] GFR Estimate 36 (L) >60 [facility] mL/min/1.7 [place] m2 CAMPUS LABS GFR Estimate If 43 (L) >60 [facility] Black mL/min/1.7 [place] m2 CAMPUS LABS Calcium 8.9 8.5 - 10.4 [facility] mg/dL [facility] LABS Specimen Anatomical Collection Method Collection Time Receive d Time (Source) Location / / Volume Laterality Blood specimen 02/12/2014 7:41 AM 014 7:43 (specimen) CDT AM CDT Kaitlynn Leon MD LAB - BLOOD ORDERABLES Performing Organization Address City/State/ZIP Code Phon e Number [facility] [address] [place] [address] [facility] LABS documented in this encounter Visit [...] after. documented in this encounter Care Teams Silo Operator Relationship Specialty Start Date End Date Momo Forbes PCP - General Family Practice 01/02/14 [facility] [address] [place] [address] Ingrid Santana, RN Registered Nurse Transplant 02/10/12 10/01/15 documented as of this encounter
--- OUTSIDE RECORDS SUMMARY | 2022-04-29 12:22 | XMS_ITS | Encounter Summary ---
:1950 Author Organization [place] Address [facility] [place] [address] Care Team Providers Name Role Phone Ingrid Santana RN Unavailable Momo Forbes Primary Care Provider Reason for Visit Reason Comments Eval/Assessment LABS, ASSESSMENT, EDUCATION AND DRESSING CHANGE. Encounter Details Date Type Department Care Team Description 02/14/2014 Infusion Therapy Specialty Infusion Kaitlynn Leon MD Kidney replaced by transplant (Primary D x); Visit and Procedure Center [facility] S/P kidney transplant [facility] [address] [address] [place], [place] (Work) [address] Social History Tobacco Use [...] 3:25 PM CDT Diego Guthrie came to [facility] today for a lab and assess following a Kidney transplant on 02/02/14. Discharge date: 02/08/14 corporate travel coordinator: Leandro Kahn Phone number patient can be reached at: [phone] Physical Assessment: See physical assessment located under [...] Tuesday. 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/Senior Outside Sales Representative verbalized understanding, all questions answered: YES Discharged [...] Signature INR 2.29 (H) 0.86 - 1.14 [facility] LABS Specimen Anatomical Collection Method Collection Time Receive d Time (Source) Location / / Volume Laterality Blood specimen 02/14/2014 7:51 AM 014 7:58 (specimen) CDT AM CDT Kaitlynn Leon MD LAB - BLOOD ORDERABLES Performing Organization Address City/State/ZIP Code Phon e Number [facility] 500 [place], [place] [phone] [place] [address] LABS Tacrolimus level (02/14/2014 7:51 AM CDT) [facility] gist Method Time Signature Tacrolimus Last 1914 [facility] Dose 02/13/14 [facility] LABS Tacrolimus 7.5 5.0 - [facility] Level 15.0 ug/L [facility] LABS Comment: Tacrolimus Reference Range Kidney Transplant [...] Phon e Number [facility] [address] [place], [place] [phone] [place] [address] LABS (ABNORMAL) CBC with platelets differential (02/14/2014 7:51 AM CDT) [facility] gist Method Time Signature WBC 6.9 4.0 - [facility] 11.0 [place] 10e9/L [place] LABS RBC Count 2.55 (L) 4.4 - 5.9 [facility] 10e12/L [facility] LABS Hemoglobin 7.8 (L) 13.3 - [facility] 17.7 g/dL [facility] LABS Hematocrit 23.4 (L) 40.0 - [facility] 53.0 % [facility] LABS MCV 92 78 - 100 [facility] fl [facility] LABS MCH 30.6 26.5 - [facility] 33.0 pg [facility] LABS MCHC 33.3 31.5 - [facility] 36.5 g/dL [facility] LABS RDW 14.9 10.0 - [facility] 15.0 % [facility] LABS Platelet Count 122 (L) 150 - 450 [facility] 10e9/L [facility] LABS Diff Method Automated [facility] Method [facility] LABS % Neutrophils 88.7 % [facility] LABS % Lymphocytes 2.6 % [facility] LABS % Monocytes 4.5 % [facility] LABS % Eosinophils 3.8 % [facility] % Basophils 0.1 % [facility] % Immature 0.3 % [facility] Granulocytes [facility] LABS Absolute 6.1 1.6 - 8.3 [facility] Neutrophil 10e9/L [facility] LABS Absolute 0.2 (L) 0.8 - 5.3 [facility] Lymphocytes 10e9/L [facility] LABS Absolute 0.3 0.0 - 1.3 [facility] Monocytes 10e9/L [facility] LABS Absolute 0.3 0.0 - 0.7 [facility] Eosinophils 10e9/L [facility] LABS Absolute 0.0 0.0 - 0.2 [facility] Basophils 10e9/L [facility] LABS Abs Immature 0.0 0 - 0.4 [facility] Granulocytes 10e9/L [facility] LABS Specimen Anatomical Collection Method Collection Time Receive d Time (Source) Location / / Volume Laterality Blood specimen 02/14/2014 7:51 AM 014 7:53 (specimen) CDT AM CDT Joseph Quintana MD LAB - BLOOD ORDERABLES Performing Organization Address City/[facility] Code Phon e Number [address] LABS (ABNORMAL) Phosphorus (02/14/2014 7:51 AM CDT) P athologist Signature Phosphorus 2.4 (L) 2.5 - 4.5 [facility] mg/dL [place] LABS Specimen Anatomical Collection Method Collection Time Receive d Time (Source) Location / / Volume Laterality Blood specimen 02/14/2014 7:51 AM 014 7:53 (specimen) CDT AM CDT Joseph Quintana MD LAB - BLOOD ORDERABLES Performing Organization Address City/[facility]/ZIP Code Phon e Number [address] [facility] LABS Magnesium (02/14/2014 7:51 AM CDT) P athologist Signature Magnesium 1.6 1.6 - 2.3 [facility]ITY mg/dL CAMPUS LABS Specimen Anatomical Collection Method Collection Time Receive d Time (Source) Location / / Volume Laterality Blood specimen 02/14/2014 7:51 AM 014 7:53 (specimen) CDT AM CDT Joseph Quintana MD LAB - BLOOD ORDERABLES Performing Organization Address City/[facility] Code Phon e Number [facility] [address] [place] [address] [facility] LABS (ABNORMAL) Basic metabolic panel (02/14/2014 7:51 AM CDT) Patholo gist Method Time Signature Sodium 143 133 - 144 [facility] mmol/L [facility] LABS Potassium 5.4 (H) 3.4 - 5.3 [facility] mmol/L [facility] LABS Chloride 113 (H) 94 - 109 [facility] mmol/L [facility] LABS Carbon Dioxide 20 20 - 32 [facility] mmol/L [facility] LABS Anion Gap 9 6 - 17 [facility] mmol/L [facility] LABS Glucose 193 (H) 60 - 99 [facility] mg/dL [facility] LABS Urea Nitrogen 18 7 - 30 [facility] mg/dL [facility] LABS Creatinine 1.82 (H) 0.66 - [facility] 1.25 mg/dL [facility] LABS GFR Estimate 38 (L) >60 [facility] mL/min/1.7 [place] m2 CAMPUS LABS GFR Estimate If 46 (L) >60 [facility] Black mL/min/1.7 [place] m2 CAMPUS LABS Calcium 9.2 8.5 - 10.4 [facility] mg/dL [facility] LABS Specimen Anatomical Collection Method Collection Time Receive d Time (Source) Location / / Volume Laterality Blood specimen 02/14/2014 7:51 AM 014 7:53 (specimen) CDT AM CDT Joseph Quintana MD LAB - BLOOD ORDERABLES Performing Organization Address City/State/ZIP Code Phon e Number [facility] [address] [place] [address] [facility] LABS documented in this encounter Visit Diagnoses Diagnosis Kidney replaced by transplant - Primary S/P kidney transplant Kidney replaced by transplant documented in this encounter Care Teams Image Archivist Relationship Specialty Start Date End Date Forbes, Ton PCP - General Family Practice 01/02/14 [facility] [address] [place] [address] Ingrid Santana, RN Registered Nurse Transplant 02/10/12 10/01/15 documented as of this encounter
--- OUTSIDE RECORDS SUMMARY | 2022-04-29 12:22 | XMS_ITS | Encounter Summary ---
:1950 Author Organization [place] Address [facility] [place] [address] Care Team Providers Name Role Phone Ingrid Santana RN Unavailable Momo Forbes Primary Care Provider Reason for Visit Reason Comments Eval/Assessment LBA Encounter Details Date Type Department Care Team Description 02/14/2014 Office Visit Specialty Infusion Edward, Naim S, Kidney r eplaced by transplant (Primary Dx); and Procedure Center Immunosuppression (H); Arpita [facility] Hyperka lemia; Building [facility] Hypophosphatemia; [address] Atrial fibrillation (H); [address] [place], [place] Anemia; [place] [address] HTN (hypertension) [place], [place] [phone] [address] (Work) [phone] Social History Tobacco Use Types Packs/Day Years [...] Years of Education: 14 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
--- OUTSIDE RECORDS SUMMARY | 2022-04-29 12:22 | XMS_ITS | Encounter Summary ---
:1950 Author Organization [place] Address [address] [place] [address]. [place] [address] Care Team Providers Name Role Phone Ingrid Santana RN Unavailable Momo Forbes Primary Care Provider Encounter Details Date Type Department Care Team Description 02/15/2014 Orders Only Nephrology Shiva Kahn RN Kidney replaced by transplant; 2nd Floor, Clinic 2A [facility] S/P kidney transplant Tommy Wangensteen [address] [place] [address] [place] [phone] Social History Tobacco Use Types Packs/Day Years [...] transplant documented in this encounter Care Teams Water Treatment Technician Relationship Specialty Start Date End Date Momo Forbes PCP - General Family Practice 01/02/14 [facility] [address] [place] [address] Ingrid Santana, RN Registered Nurse Transplant 02/10/12 10/01/15 documented as of this encounter
--- OUTSIDE RECORDS SUMMARY | 2022-04-29 12:22 | XMS_ITS | Encounter Summary ---
:1950 Author Organization [place] Address [facility] [place] [address] Care Team Providers Name Role Phone Ingrid Santana RN Unavailable Momo Forbes Primary Care Provider Encounter Details Date Type Department Care Team Description 02/18/2014 Orders Only Nephrology Shiva Kahn, -donor kidney transp lant recipient (Primary Dx); 2nd Floor, Clinic 2A RN High risk medications (not anticoagulant s) long-term use; Tommy Wilburn [facility] CATY HIGGINS orthodontic assistant (current) use of anticoagulant s [place] [address] [place] [phone] Social History Tobacco Use Types Packs/Day Years [...] s documented in this encounter Care Teams Farmworker Dairy Relationship Specialty Start Date End Date Momo Forbes PCP - General Family Practice 01/02/14 [facility] [address] [place] [address] Ingrid Santana, RN Registered Nurse Transplant 02/10/12 10/01/15 documented as of this encounter
--- OUTSIDE RECORDS SUMMARY | 2022-04-29 12:22 | XMS_ITS | Encounter Summary ---
:1950 Author Organization [place] Address [facility] [place] [address] Care Team Providers Name Role Phone Ingrid Santana RN Unavailable Momo Forbes Primary Care Provider Reason for Visit Reason Onset Date Comments Previsit 02/20/2014 Encounter Details Date Type Department Care Team Description 02/20/2014 Telephone Transplant Surgery C nanda Merchant, Migel Evans MD Previsit 2nd Floor, Clinic 2A [address] [address] [facility] [place] [phone] Social History Tobacco Use Types Packs/Day Years [...] on filedocumented in this encounter Care Teams Sorter Pricer Relationship Specialty Start Date End Date Momo Forbes PCP - General Family Practice 01/02/14 [place] [phone] Ingrid Santana, RN Registered Nurse Transplant 02/10/12 10/01/15 documented as of this encounter
--- OUTSIDE RECORDS SUMMARY | 2022-04-29 12:22 | XMS_ITS | Encounter Summary ---
:1950 Author Organization [place] Address [facility] [place] [address] Care Team Providers Name Role Phone Ingrid Santana RN Unavailable Momo Forbes Primary Care Provider Reason for Visit Reason Onset Date Comments Pre Visit Planning - Done 03/08/2014 Appointment on 03/11/2014 Encounter Details Date Type Department Care Team Description 03/08/2014 Telephone Nephrology Alexandria Caldera, Pre Visit Planning - 2nd Floor, Clinic 2A TRANSITIONAL CARE LIAISON Done (Appointment on Sanders Akila 03/11/20 14) [address] [address] Social History Tobacco Use Types [...] bring list of medications. Toldpatient to call [phone] if any questions or needs to reschedule. Alexandria Caldera CMA documented in this encounter Plan of Treatment Not on filedocumented as of this encounter Visit Diagnoses Not on filedocumented in this encounter Care Teams Courtesy Booth Cashier Relationship Specialty Start Date End Date Momo Forbes PCP - General Family Practice 01/02/14 [place] [address] Ingrid Santana, RN Registered Nurse Transplant 02/10/12 10/01/15 documented as of this encounter
--- OUTSIDE RECORDS SUMMARY | 2022-04-29 12:22 | XMS_ITS | Encounter Summary ---
:1950 Author Organization [place] Address [address] [place] [address]. [place] [address] Care Team Providers Name Role Phone Ingrid [...] 12-lead, tracing only (02/18/2014 9:53 AM CDT) [facility] gist Method Time Signature [...] on filedocumented in this encounter Care Teams Cylinder Machine Operator Relationship Specialty Start Date End Date Momo Forbes PCP - General Family Practice 01/02/14 [facility] [address] [place] [address] Ingrid Santana, RN Registered Nurse Transplant 02/10/12 10/01/15 documented as of this encounter
--- OUTSIDE RECORDS SUMMARY | 2022-04-29 12:22 | XMS_ITS | Encounter Summary ---
:1950 Author Organization [place] Address [facility] [place] [address] Care Team Providers Name Role Phone Ingrid Santana RN Unavailable Momo Forbes Primary Care Provider Reason for Visit Reason Onset Date Comments [facility] Encounter Details Date Type Department Care Team Description 03/04/2014 Refill The Transplant Kaitlynn Moreno MD Refill Request 2nd Floor, Clinic 2A [facility] ([facility]) [facility] [address] [place] [address] 88 [phone] [place], [place] [phone] (Wo rk) [phone] [phone] Social History Tobacco Use Types Packs/Day Years [...] Fill Date: 02/08/14 Quantity: 60 [facility] [phone] documented in this encounter Plan of Treatment Not on filedocumented as of this encounter Visit Diagnoses Diagnosis Atrial fibrillation (H) Atrial fibrillation documented in this encounter Care Teams Resourcing Consultant Relationship Specialty Start Date End Date Momo Forbes PCP - General Family Practice 01/02/14 [place] [id number] Ingrid Santana, RN Registered Nurse Transplant 02/10/12 10/01/15 documented as of this encounter
--- OUTSIDE RECORDS SUMMARY | 2022-04-29 12:22 | XMS_ITS | Encounter Summary ---
:1950 Author Organization [place] Address [facility] [place] [address] Care Team Providers Name Role Phone Ingrid Santana RN Unavailable Momo Raines Primary Care Provider Reason for Visit Reason Comments Consult consult for afib Encounter Details Date Type Department Care Team Description 02/18/2014 [facility] (H[facility] (Primary Dx) Heart MD Tommy Wilburn [facility] Building [place] 4th Floor, Clinic 4B [address] [facility] [address] [phone] [place], [place] (Work) [phone] [phone] Social History Tobacco Use Types Packs/Day Years [...] Years of Education: 14 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
--- OUTSIDE RECORDS SUMMARY | 2022-04-29 12:22 | XMS_ITS | Encounter Summary ---
:1950 Author Organization [place] Address [address] [place] [address]. [place] [address] Care Team Providers Name Role Phone Ingrid Santana RN Unavailable Momo Forbes Primary Care Provider Reason for Visit Reason Onset Date Comments Refill Request 02/11/2014 Encounter Details Date Type Department Care Team Description 02/11/2014 Refill Nephrology Isa Ly RN Refill Request 2nd Floor, Clinic 2A [facility] [address] [place] [address] [phone] Social History Tobacco Use Types Packs/Day [...] transplant documented in this encounter Care Teams Sorting Cows Worker Relationship Specialty Start Date End Date Momo Forbes PCP - General Family Practice 01/02/14 [facility] [address] [place], [place] [phone] Ingrid Santana, RN Registered Nurse Transplant 02/10/12 10/01/15 documented as of this encounter
--- OUTSIDE RECORDS SUMMARY | 2022-04-29 12:22 | XMS_ITS | Encounter Summary ---
:1950 Author Organization [place] Address [address] [place] [address]. [place] [address] Care Team Providers Name Role Phone Ingrid [...] Clinic 2A [address] [place] Immunosupp[facility] (H); [facility] 1 95 Atrial fibrillation (H) Building [address] [place] [phone] [place] [address] [place], [place] (Work) [phone] Social History Tobacco Use Types Packs/Day Years [...] appearing no apparent distress Drain in place. [place] in place. Hematology: Recent Labs Lab Test [...] Stent: out in ~ 4 weeks 4. [place]. Follow up next Tuesday for staple removal [...] fibrillation documented in this encounter Care Teams Welder Fitter Helper Relationship Specialty Start Date End Date Momo Forbes PCP - General Family Practice 01/02/14 [facility] [address] [place] [address] Ingrid Santana, RN Registered Nurse Transplant 02/10/12 10/01/15 documented as of this encounter
--- OUTSIDE RECORDS SUMMARY | 2022-04-29 12:22 | XMS_ITS | Encounter Summary ---
:1950 Author Organization [place] Address [facility] [place] [address] Care Team Providers Name Role Phone Ingrid Santana RN Unavailable Momo Forbes Primary Care Provider Encounter Details Date Type Department Care Team Description 02/18/2014 Orders Only The Transplant Deysi Burns, Kidney replaced by transplan t; 2nd Floor, Clinic 2A S/P kidney transplant [facility] [address] [place] [address] [place] [address] [address] [place] [address] [place], [place] [phone] (Wo rk) [phone] [phone] Social History Tobacco Use Types Packs/Day Years [...] Signature Magnesium 1.5 (L) 1.6 - 2.3 [facility] mg/dL [place] [facility] Specimen Anatomical Collection Method Collection Time Receive d Time (Source) Location / / Volume Laterality Blood specimen 02/18/2014 8:56 AM 014 8:57 (specimen) CDT AM CDT Kaitlynn Leon MD LAB - BLOOD ORDERABLES Performing Organization Address City/[facility]/ZIP Code Phon e Number [address] LABS (ABNORMAL) Phosphorus (02/18/2014 8:56 AM CDT) athologist Signature Phosphorus 1.9 (L) 2.5 - 4.5 [facility] mg/dL [place] [facility] Specimen Anatomical Collection Method Collection Time Receive d Time (Source) Location / / Volume Laterality Blood specimen 02/18/2014 8:56 AM 014 8:57 (specimen) CDT AM CDT Kaitlynn Leon MD LAB - BLOOD ORDERABLES Performing Organization Address City/[facility]/ZIP Code Phon e Number [address] LABS Tacrolimus level (02/18/2014 8:56 AM CDT) Patholo gist Method Time Signature Tacrolimus Last 02/12/14 [facility] Dose 1930 [facility]S Tacrolimus 14.1 5.0 - [facility] Level 15.0 ug/L [facility] Comment: Tacrolimus Reference Range [...] Phon e Number [facility] [address] [place] [address] [facility] LABS (ABNORMAL) CBC with platelets differential (02/18/2014 8:56 AM CDT) Patholo gist Method Time Signature WBC 6.3 4.0 - [facility] 11.0 UNIVERSITY 10e9/L [place] [facility] RBC Count 2.59 (L) 4.4 - 5.9 [facility] 10e12/L [facility] Hemoglobin 7.8 (L) 13.3 - [facility] 17.7 g/dL [facility] LABS Hematocrit 23.7 (L) 40.0 - [facility] 53.0 % [facility] MCV 92 78 - 100 [facility] fl [facility] MCH 30.1 26.5 - [facility] 33.0 pg [facility] MCHC 32.9 31.5 - [facility] 36.5 g/dL [facility] RDW 14.7 10.0 - [facility] 15.0 % [facility] Platelet Count 140 (L) 150 - 450 [facility] 10e9/L [facility] Diff Method Automated [facility] Method [facility] % Neutrophils 84.7 % [facility] LABS % Lymphocytes 3.8 % [facility] LABS % Monocytes 6.0 % [facility] LABS % Eosinophils 4.8 % [facility] % Basophils 0.5 % [facility] % Immature 0.2 % [facility] Granulocytes [facility] Absolute 5.3 1.6 - 8.3 [facility] Neutrophil 10e9/L [facility] Absolute 0.2 (L) 0.8 - 5.3 [facility] Lymphocytes 10e9/L [facility] Absolute 0.4 0.0 - 1.3 [facility] Monocytes 10e9/L [facility] Absolute 0.3 0.0 - 0.7 [facility] Eosinophils 10e9/L [facility] Absolute 0.0 0.0 - 0.2 [facility] Basophils 10e9/L [facility] Abs Immature 0.0 0 - 0.4 [facility] Granulocytes 10e9/L [facility] Specimen Anatomical Collection Method Collection Time Receive d Time (Source) Location / / Volume Laterality Blood specimen 02/18/2014 8:56 AM 014 8:57 (specimen) CDT AM CDT Kaitlynn Leon MD LAB - BLOOD ORDERABLES Performing Organization Address City/State/ZIP Code Phon e Number [facility] [address] [place], [place] [id number] [place] [address] LABS (ABNORMAL) Basic metabolic panel (02/18/2014 8:56 AM CDT) Patholo gist Method Time Signature Sodium 141 133 - 144 [facility] mmol/L [facility] Potassium 5.2 3.4 - 5.3 [facility] mmol/L [facility] Chloride 112 (H) 94 - 109 [facility] mmol/L [facility] Carbon Dioxide 18 (L) 20 - 32 [facility] mmol/L [facility] Anion Gap 11 6 - 17 [facility] mmol/L [facility] Glucose 185 (H) 60 - 99 [facility] mg/dL [facility] Urea Nitrogen 24 7 - 30 [facility] mg/dL [facility]S Creatinine 1.81 (H) 0.66 - [facility] 1.25 mg/dL [facility] GFR Estimate 38 (L) >60 [facility] mL/min/1.7 [place]LL[place] m2 [place] [facility] GFR Estimate If 46 (L) >60 [facility] Black mL/min/1.7 [place] m2 [place] [facility] Calcium 9.4 8.5 - 10.4 [facility] mg/dL [facility] Specimen Anatomical Collection Method Collection Time Receive d Time (Source) Location / / Volume Laterality Blood specimen 02/18/2014 8:56 AM 014 8:57 (specimen) CDT AM CDT Kaitlynn Leon MD LAB - BLOOD ORDERABLES Performing Organization Address City/[facility] Code Phon e Number [address] LABS (ABNORMAL) INR (02/18/2014 8:56 AM CDT) P athologist Signature INR 2.13 (H) 0.86 - 1.14 [facility] LABS Specimen Anatomical Collection Method Collection Time Receive d Time (Source) Location / / Volume Laterality Blood specimen 02/18/2014 8:56 AM 014 8:57 (specimen) CDT AM CDT Kaitlynn Leon MD LAB - BLOOD ORDERABLES Performing Organization Address City/[facility] Code Phon e Number [address] LABS documented in this encounter Visit Diagnoses Diagnosis Kidney replaced by transplant S/P kidney transplant Kidney replaced by transplant documented in this encounter Care Teams Hydroelectric Plant Electrician Relationship Specialty Start Date End Date Momo Forbes PCP - General Family Practice 01/02/14 [facility] [address] [place] [address] Ingrid Santana, RN Registered Nurse Transplant 02/10/12 10/01/15 documented as of this encounter
--- OUTSIDE RECORDS SUMMARY | 2022-04-29 12:22 | XMS_ITS | Encounter Summary ---
:1950 Author Organization [place] Address [facility] [place] [address] Care Team Providers Name Role Phone Ingrid Santana RN Unavailable Momo Forbes Primary Care Provider Reason for Visit Reason Onset Date Comments Previsit 02/15/[address] Merchant 02/18 Encounter Details Date Type Department Care Team Description 02/15/2014 Telephone Transplant Surgery Radha Acosta LPN Prev isit (Appt with Dr Anthony Merchant 02/18) 2nd Floor, Clinic [address]A [address] [phone] Social History Tobacco Use Types [...] on filedocumented in this encounter Care Teams Recreation Manager Relationship Specialty Start Date End Date Momo Forbes PCP - General Family Practice 01/02/14 [place] [id number] Ingrid Santana, RN Registered Nurse Transplant 02/10/12 10/01/15 documented as of this encounter
--- OUTSIDE RECORDS SUMMARY | 2022-04-29 12:23 | XMS_ITS | Encounter Summary ---
:1950 Author Organization [place] Address [facility] [place] [address] Care Team Providers Name Role Phone Ingrid Santana RN Unavailable Momo Forbes Primary Care Provider Reason for Visit Reason Comments Eval/Assessment s/p kidney transplant 8days ago Encounter Details Date Type Department Care Team Description 02/10/2014 Infusion Therapy Specialty Infusion Finger, Migel Mac y replaced by Visit and Procedure MD Nathan transplant (Primary Center [address] [place] [address]) [facility] 19 5 [address] Building 2nd Floor [address] [phone] [place], [place] (Work) [phone] Social History Tobacco Use [...] 10:40 AM CDT Diego Guthrie came to [facility] today for a lab and assess 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 Discharge date: 02/08/14 donor services coordinator: Leandro Kahn RN Phone number patient can be reached at: [phone] (girlfriend's cell) Physical Assessment: See physical assessment located under Document Flowsheets. Incision site: stapled, leaking tiny amount clear pink/pale yellow fluid from mid incision (1.5inch area on dressing from 3hours ago) covered with ABD Lines: MARGARET rlq; 30cc out last tamara; 10cc out overnite;; lite pink clear fluid Gibbs: na states is not having voiding difficulty Urine clarity: not asked Hydration: states he [id number] water yesterday but does not like that [...] Discharge Plan Pt will follow up with [facility] lab/assess in am 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/R D Intern verbalized understanding, all questions answered: YES Discharged [...] Results Tacrolimus level (02/10/2014 8:37 AM CDT) [facility] Method Time Signature Tacrolimus Not Provided [facility] Last Dose [facility] LABS Tacrolimus 6.8 5.0 - [facility] Level 15.0 ug/L [facility] LABS Comment: Tacrolimus Reference Range Kidney Transplant [...] Organization Address City/State/ZIP Code Phon e Number [facility] [address] [place] [address] [facility] LABS (ABNORMAL) CBC with platelets differential (02/10/2014 8:37 AM CDT) Component Value Ref Test Analysis Performed At [facility] gist Range Method Time Signature WBC 5.5 4.0 - [facility] 11.0 [place] LABS 10e9/L RBC Count 2.53 (L) 4.4 - [facility] 5.9 CAMPUS LABS 10e12/L Hemoglobin 7.9 (L) 13.3 - [facility] 17.7 CAMPUS LABS g/dL Hematocrit 23.2 (L) 40.0 - [facility] 53.0 % CAMPUS LABS MCV 92 78 - 100 [facility] fl CAMPUS LABS MCH 31.2 26.5 - [facility] 33.0 pg CAMPUS LABS MCHC 34.1 31.5 - [facility] 36.5 CAMPUS LABS g/dL RDW 14.5 10.0 - [facility] 15.0 % CAMPUS LABS Platelet Count 89 (L) 150 - [facility] 450 CAMPUS LABS 10e9/L Diff Method Manual [...] Code Phon e Number [id number] DIFFERENTIAL [facility] LABS (ABNORMAL) Phosphorus (02/10/2014 8:37 AM CDT) P athologist Signature Phosphorus 1.9 (L) 2.5 - 4.5 [facility] mg/dL CAMPUS LABS Specimen Anatomical Collection Method Collection Time Receive d Time (Source) Location / / Volume Laterality Blood specimen 02/10/2014 8:37 AM 014 8:38 (specimen) CDT AM CDT Migel Merchant MD LAB - BLOOD ORDERABLES Performing Organization Address City/State/[facility] Code Phon e Number [facility] [address] LABS Magnesium (02/10/2014 8:37 AM CDT) P athologist Signature Magnesium 2.0 1.6 - 2.3 [facility] UNIVERSITY mg/dL CAMPUS LABS Specimen Anatomical Collection Method Collection Time Receive d Time (Source) Location / / Volume Laterality Blood specimen 02/10/2014 8:37 AM 014 8:38 (specimen) CDT AM CDT Migel Merchant MD LAB - BLOOD ORDERABLES Performing Organization Address City/[facility]/ZIP Code Phon e Number [facility] [address] LABS (ABNORMAL) Basic metabolic panel (02/10/2014 8:37 AM CDT) Patholo gist Method Time Signature Sodium 144 133 - 144 [facility] mmol/L [facility] LABS Potassium 4.8 3.4 - 5.3 [facility] mmol/L [facility] LABS Chloride 111 (H) 94 - 109 [facility] mmol/L [facility]S Carbon Dioxide 22 20 - 32 [facility] mmol/L [facility]S Anion Gap 10 6 - 17 [facility] mmol/L [facility]S Glucose 128 (H) 60 - 99 [facility] mg/dL [facility] LABS Urea Nitrogen 34 (H) 7 - 30 [facility] mg/dL [facility] LABS Creatinine 1.80 (H) 0.66 - [facility] 1.25 mg/dL [facility] LABS GFR Estimate 38 (L) >60 [facility] mL/min/1.7 UNIVERSITY m2 CAMPUS LABS GFR Estimate If 46 (L) >60 [facility] Black mL/min/1.7 [place] [address] CAMPUS LABS Calcium 9.1 8.5 - 10.4 [facility] mg/dL [facility] LABS Specimen Anatomical Collection Method Collection Time Receive d Time (Source) Location / / Volume Laterality Blood specimen 02/10/2014 8:37 AM 014 8:38 (specimen) CDT AM CDT Migel Merchant MD LAB - BLOOD ORDERABLES Performing Organization Address City/State/ZIP Code Phon e Number [facility] [address] [place] [address] [facility] LABS documented in this encounter Visit Diagnoses Diagnosis Kidney replaced by transplant - Primary documented in this encounter Care Teams Laborer Steel Handling Relationship Specialty Start Date End Date Momo Forbes PCP - General Family Practice 01/02/14 [facility] [address] [place] [address] Ingrid Santana, RN Registered Nurse Transplant 02/10/12 10/01/15 documented as of this encounter
--- OUTSIDE RECORDS SUMMARY | 2022-04-29 12:23 | XMS_ITS | Encounter Summary ---
:1950 Author Organization [facility] Address Critical access hospital0 [facility] [place] [address] Care Team Providers Name Role Phone Ingrid Santana RN Unavailable Momo Forbes Primary Care Provider Reason for Visit Reason Comments Eval/Assessment LBA Encounter Details Date Type Department Care Team Description 02/09/2014 Infusion Therapy Specialty Infusion Finger, Migel Mac y replaced by transplant (Primary Dx); Visit and Procedure MD [facility] [address] [place] [address] 19 5 [facility] 2nd Floor [address] [phone] [place], [place] (Work) [phone] Social History Tobacco Use [...] [facility] ([facility]) for your transplant cares. The [...] Bring Humulog Insulin Pen to your future [facility] appointments. 5) Return to [facility] tomorrow at 07:30 a.m We look forward in seeing you on your next appointment here at [facility]. Please don???t hesitate to callus at [phone] to reschedule any of your appointments or to speak with one of the [facility] registered nurses. It was a pleasure taking care of you today. Sincerely, MARC HERNANDEZ RN [facility] [address] [place] [address]. [place] [address] Coumadin Information: Keep Your Diet Steady Keep [...] 7:31 AM CDT Diego Guthrie came to [facility] today for a lab and assess following a Kidney transplant on 02/02/14. Discharge date: 02/08/14 gsa coordinator: Leandro Kahn Phone number patient can be reached at: [phone] Physical Assessment: See physical assessment located under [...] s/s insulin this morning/nor brought insulin to [facility] appt. I reviewed w/pt the need to monitor BG's QID and to bring Insulin to [facility]. Last BM: yesterday, loose, [...] 1L of NS today, d/c pt from [facility] post 1L NS, return to [facility] tomorrow for LBA, No change [...] and Phone numbers to call with concenrs (gsa coordinator, [address] and [facility]) Patient verbalized understanding and all questions answered. Drug level: Prograf level today reviewed with Dr Hernandes who gave orders to no change in dose. INR of 1.59 also reviewed w/Dr Hernandes who gave orders to increase Coumadin to 7.5mg QD. Patient was updated with this information and verbalized understanding. Discharge Plan Pt will follow up with [facility] tomorrow at 0730. Bring Humulog Insulin Pen to [facility] today (pt did not bring to today's appt). 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, all questions answered: YES Discharged [...] Signature INR 1.59 (H) 0.86 - 1.14 [facility] LABS Specimen Anatomical Collection Method Collection Time Receive d Time (Source) Location / / Volume Laterality Blood specimen 02/09/2014 8:30 AM 014 (specimen) CDT 11:07 AM CDT Migel Merchant MD LAB - BLOOD ORDERABLES Performing Organization Address City/State/ZIP Code Phon e Number [facility] [address] [place], [place] [phone] [place] [address] LABS Tacrolimus level (02/09/2014 7:40 AM CDT) [facility] gist Method Time Signature Tacrolimus Not Provided [facility] Last Dose [facility]S Tacrolimus 8.0 5.0 - [facility] Level 15.0 ug/L [facility] LABS Comment: Tacrolimus Reference Range Kidney [...] Phon e Number [facility] [address] [place], [place] [phone] [place] [address] [facility] (ABNORMAL) CBC with platelets differential (02/09/2014 7:40 AM CDT) Patholo gist Method Time Signature WBC 5.8 4.0 - [facility] 11.0 [facility] 10e9/L [place] LABS RBC Count 2.66 (L) 4.4 - 5.9 [facility] 10e12/L [facility] LABS Hemoglobin 8.2 (L) 13.3 - [facility] 17.7 g/dL [facility] LABS Hematocrit 24.4 (L) 40.0 - [facility] 53.0 % [facility] LABS MCV 92 78 - 100 [facility] fl [facility] MCH 30.8 26.5 - [facility] 33.0 pg [facility]S MCHC 33.6 31.5 - [facility] 36.5 g/dL [facility] LABS RDW 14.6 10.0 - [facility] 15.0 % [facility]S Platelet Count 78 (L) 150 - 450 [facility] 10e9/L [facility] LAB[facility] Diff Method Automated [facility] Method [facility] % Neutrophils 84.8 % [facility] % Lymphocytes 5.2 % [facility] % Monocytes 6.9 % [facility] LAB[facility] % Eosinophils 2.9 % [facility] % Basophils 0.0 % [facility] LABS % Immature 0.2 % [facility] Granulocytes [facility] LABS Absolute 4.9 1.6 - 8.3 [facility] Neutrophil 10e9/L [facility] LABS Absolute 0.3 (L) 0.8 - 5.3 [facility] Lymphocytes 10e9/L [facility] LAB[facility] Absolute 0.4 0.0 - 1.3 [facility] Monocytes 10e9/L [facility] Absolute 0.2 0.0 - 0.7 [facility] Eosinophils 10e9/L [facility] Absolute 0.0 0.0 - 0.2 [facility] Basophils 10e9/L [facility] LABS Abs Immature 0.0 0 - 0.4 [facility] Granulocytes 10e9/L [facility] LABS Specimen Anatomical Collection Method Collection Time Receive d Time (Source) Location / / Volume Laterality Blood specimen 02/09/2014 7:40 AM 014 7:49 (specimen) CDT AM CDT Migel Merchant MD LAB - BLOOD ORDERABLES Performing Organization Address City/State/ZIP Code Phon e Number [facility] [address] [place], [place] [phone] [place] [address] LABS (ABNORMAL) Phosphorus (02/09/2014 7:40 AM CDT) athologist Signature Phosphorus 2.0 (L) 2.5 - 4.5 [facility] mg/dL CAMPUS LABS Specimen Anatomical Collection Method Collection Time Receive d Time (Source) Location / / Volume Laterality Blood specimen 02/09/2014 7:40 AM 014 7:49 (specimen) CDT AM CDT Migel Merchant MD LAB - BLOOD ORDERABLES Performing Organization Address City/[facility] Phon e Number [facility] [address] LABS Magnesium (02/09/2014 7:40 AM CDT) athologist Signature Magnesium 1.9 1.6 - 2.3 [facility] mg/dL [place] LABS Specimen Anatomical Collection Method Collection Time Receive d Time (Source) Location / / Volume Laterality Blood specimen 02/09/2014 7:40 AM 014 7:49 (specimen) CDT AM CDT Migel Merchant MD LAB - BLOOD ORDERABLES Performing Organization Address City/[facility] Code Phon e Number [facility] [address] LABS (ABNORMAL) Basic metabolic panel (02/09/2014 7:40 AM CDT) [facility] gist Method Time Signature Sodium 145 (H) 133 - 144 [facility] mmol/L [facility] LABS Potassium 4.5 3.4 - 5.3 [facility] mmol/L [facility] LABS Chloride 110 (H) 94 - 109 [facility] mmol/L [facility] LABS Carbon Dioxide 24 20 - 32 [facility] mmol/L [facility] LABS Anion Gap 10 6 - 17 [facility] mmol/L [facility] LABS Glucose 137 (H) 60 - 99 [facility] mg/dL [facility] LABS Urea Nitrogen 48 (H) 7 - 30 [facility] mg/dL [facility] LABS Creatinine 2.02 (H) 0.66 - [facility] 1.25 mg/dL [facility] LABS GFR Estimate 34 (L) >60 [facility] mL/min/1.7 [place] m2 CAMPUS LABS GFR Estimate If 41 (L) >60 [facility] [place] mL/min/1.7 [place] [address] CAMPUS LABS Calcium 9.2 8.5 - 10.4 [facility] mg/dL [facility] LABS Specimen Anatomical Collection Method Collection Time Receive d Time (Source) Location / / Volume Laterality Blood specimen 02/09/2014 7:40 AM 014 7:49 (specimen) CDT AM CDT Migel Merchant MD LAB - BLOOD ORDERABLES Performing Organization Address City/State/ZIP Code Phon e Number [address] [address] [facility] LABS documented in this encounter Visit [...] dose documented in this encounter Care Teams Pressure Dispatcher Relationship Specialty Start Date End Date Momo Forbes PCP - General Family Practice 01/02/14 [facility] [address] [place] [address] Ingrid Santana, RN Registered Nurse Transplant 02/10/12 10/01/15 documented as of this encounter
--- OUTSIDE RECORDS SUMMARY | 2022-04-29 12:24 | XMS_ITS | Encounter Summary ---
:1950 Author Organization [facility] Address [address] [place] [address]. [place] [address] Care Team Providers Name Role Phone Ingrid Santana RN Unavailable Momo Forbes Primary Care Provider Reason for Referral Home Health Therapies & Aides Specialty Diagnoses / Procedures Referred By Contact Gary phelps To Contact Adeline Diaz MD [place] [phone] Referral ID Status Reason Start Date Expiration Date Visits Requ ested Visits Authorized ome Health Therapies & Aides Specialty Diagnoses / Procedures Referred By Pippa phelps To Contact Adeline Diaz MD [place] [phone] Referral ID Status Reason Start Date Expiration Date Visits Requ ested Visits Authorized ome Health Therapies & Aides Specialty Diagnoses / Procedures Referred By Pippa phelps To Contact [facility] [address] [place] [address] [phone] Referral ID Status Reason Start Date Expiration Date Visits Requ ested Visits Authorized Reason for Visit Auth/Cert - Closed Specialty Diagnoses / Procedures Referred By Contact Refer red To Contact Med Surg Diagnoses end stage renal disease dialysis End stage renal failure on dialysis Renal Failure Uu U7a Procedures TRANSPLANT KIDNEY RECIPIENT DONOR [address] [place] [address] Phone: Referral ID Status Reason Start Date Expiration Date Visits Requ ested Visits Authorized [id number] Closed 02/04/2014 08/03/2014 1 1 Encounter Details Date Type Department Care Team Description 02/02/2014 - [facility] [address] [place] [address] [phone] S/P kidney transplant (Primary Dx); 02/08/2014 [facility] [address] Mathew Parker MD [address] [place] [address] [phone] Atrial fibrillation (H) [address] [place] [address] Social History Tobacco Use Types [...] Physician Discharge Summary Patient ID: Diego Guthrie [id number] 63 year old 1950 Admit date: 02/02/2014 [...] Take 1 tablet by mouth daily. B bituuxa-U-oalnw acid (NEPHROCAPS) 1 MG capsule Take 1 [...] Dr. Merchant in 2 week. Signed: Adeline Handes 02/05/2014 4:24 PM Attestation: The patient has [...] in the [facility] ([facility]) which is located on the second floor of the [facility] next to the Transplant Clinic. Your labs [...] of these appointments you will meetwith a channel account manager and meet your automotive parts coordinator. Your nurse will also be in communication with your surgeon and channel account manager as needed. The direct number to the [facility] is [phone]. In the [facility] [...] hospital. This will be located in [facility] transplant surgery clinic on the second floor.Your transplant surgeon is: Dr. Merchant. You have a ureteral stent in place which needs to be removed in 4-6 weeks. If a land department head does not contact you for this, please contact your automotive parts coordinator. If you have modesta in place, they will be removed in 3 weeks after operation. Notify your coordinator if you have pain over your kidney, fever greater than 101.5F, or decreased urine output. Notify your coordinator immediately if you are ever unable to take your immunosuppressive medications for any reason. Manager Economic [phone] Diet recommendations post-transplant: Heart healthy dietary habits fdc (low saturated/trans fat, low sodium). High protein [...] Units 0 SC SOLN Subcutaneous every evening mycophenolate Take 4 capsules 240 capsule 11 [...] mg) by mouth daily Cytomegalovirus Disease Pharmacoprophylaxis aspirin 81 MG tablet Take 1 tablet by 0 02/18/2014 mouth daily. clotrimazole (MYCELEX) 10 Place 1 lozenge 70 each 0 02/0802/12/2014 MG LOZGIndications: S/P (10 mg) inside kidney transplant cheek 3 times daily metoprolol (LOPRESSOR) 25 Take 1 tablet (25 60 tablet 2 02/10/2014 MG tabletIndications: mg) by mouth 2 Atrial fibrillation (H) times daily ondansetron (ZOFRAN) 4 MG Take 1 tablet (4 18 tablet 0 01/2102/12/2014 tabletIndications: S/P mg) by mouth every kidney transplant 6 hours as needed for nausea oxyCODONE (ROXICODONE) 5 Take 1 tablet (5 28 tablet 0 02/0802/25/2014 MG immediate release mg) by mouth every tabletIndications: S/P 4 hours as needed kidney transplant for moderate to severe pain senna-docusate Take 2 tablets by 15 tablet 0 02/08/2014 (SENOKOT-S;PERICOLACE) mouth daily as 8.6-50 MG per needed for tabletIndications: S/P constipation kidney transplant tacrolimus (PROGRAF BRAND) Take 3 capsules 180 capsule 11 02/14/2014 0.5 MG capsuleIndications: (1.5 mg) by mouth S/P kidney transplant 2 times daily warfarin (COUMADIN) 5 MG Take 1 tablet [...] >2. He can be seen by any steel construction worker in the outpatient setting for coordination. Continue metoprolol 25 po bid until he is r e-evaluated. We did attempt inpatient REFUGIO guided cardioversion, but the patient developed significant bleeding while on heparin. José Miguel Alvarez M.D. Can Filling And Closing Machine Tender Joseph Quintana MD - 02/08/2014 12:35 PM [...] Dr. Quintana. Sina Robison MD Nephrology Fellow [phone] Attestation: This patient has been seen and [...] interval not displayed. INR Recent Labs Lab 02/08/1442 02/07/143 02/06/14 0557 02/05/14 1204 INR 1.28* 1.25* [...] Ramires RN - 02/07/2014 2:25 PM CDT Civil Attorney D: Diego Guthrie 63 year old male POD #5 s/p DDKT for ESRD 2/[address] Diaz note today. Per Dr Diaz, pt will most likely be ready for d/c to home tomorrow and will return to [facility] for 5 days at 0700. Pt [...] him. Pt does not know where the [facility] or transplant clinic is, I told him and he replied I will find it. Pt does not care which [facility] agency will follow him--There are only 2 to choose from, so I chose the Local [facility] [phone]/ --I called and left a message with Estrella Fletcher and I fax'd his records tothem--pt will need start of care approx Thursday 02/15. Pt is new on warfarin and I called his PCP's office and they have INR nurses Tuesday-Tuesday their fax # is [phone] (when N visits are completed --pt will call main clinic # to schedule INR draws). 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 I verified his address and phone #(is his cell) on the facesheet. Pt has not met his OP healthcare liaison: Leandro Kahn, yet--I sent Leandro an in basket message today-with plan. A: possible d/c to home Tuesday P: see above-will follow and will call [facility] to confirm they can accept [...] Dr. Quintana. Sina Robison MD Nephrology Fellow [phone] Attestation: This patient has been seen and [...] assistance Medical Decision Making: Medium Subsequent visit 47003 (moderate level decision making) PATO/Fellow/Resident Provider: Adeline [...] Tremor absent.. Data: CMP Recent Labs Lab 02/07/1442202/06/14 0557 02/02/14 2209 02/02/14 1840 02/02/14 1407 [...] Recent Labs Lab 02/07/1442202/06/14 1659 02/06/14 0557 HGB 8.5* 8.8* 9.6* WBC 2.7* -- 5.1 PLT 77* -- 85* A1C 6.1* -- -- COAGS Recent Labs Lab 02/07/14 04202/06/14 0557 INR 1.25* 1.32* PTT -- 154* [...] Rodriguez MD - 02/06/2014 4:25 PM CDT [facility] Progress Note I have seen and [...] Dr. Quintana. Sina Robison MD Nephrology Fellow [phone] Attestation: This patient has been seen and [...] Dr. Quintana. Sina Robison MD Nephrology Fellow [phone] Attestation: This patient has been seen and [...] Lab 02/05/14 1204 02/05/14 0702 02/04/14 0549 02/03/14221502/03/14 0538 HGB 10.3* 9.7* 9.5* 9.4* < [...] 1204 INR 1.24* ABG Recent Labs Lab 02/02/142209 01/14/14 1840 O2PER 45 100% URINE STUDIES Recent [...] REPLACEMENT ONLY ??? insulin (regular) Stopped (02/05/14 0917) Shiva Kahn RN - 02/05/2014 4:47 PM CDT FRIT MIXER NOTE I met with the patient and his yesterday at [facility] PCU-6B (telemetry unit) to discuss transition from inpatient to outpatient care following kidney translantation. The patient is POD #3 extended criteria donor (NEWSAGENT) kidney transplant for ESRD related to diabetic [...] the plan for daily visits to the [facility] for 5 days after discharge followed [...] meet with the patient again in the [facility] following discharge from [facility]. RT Joseph Rodriguez MD - 02/05/2014 11:16 AM CDT [facility] Progress Note I have seen and [...] kidney on 02/02/2014. Pt lives alone in [facility] though reports that his girlfriend in in the process of moving in with him. Pt girlfriend, Tete, will be present when pt returns home but she works time buyer. Pt was on dialysis for 2 1/2 years prior to transplant. Pt works independently but reports that he currently has no income coming in. Pt has primary insurancethrough Medicare and Secondary insurance through [employer]. Pt has no co-pays for his immunosuppressants and a high out of pocket cost for Valcyte, SW to look into grants for pt for Valcyte. I: Met with pt to introduce this hand sign writer and explain sw role and services available while inpatient in the hospital. Asked if pt had any questions or concerns and completed an assessment of psychosocialneeds post transplant. Provided education about expectations and requirements post discharge like fol low up in the [facility]. Pt is unsure yet if he [...] needs arise prior to discharge. CECY Kearns, SERVICE SHOP FOREMAN Indu Calixto MD - 02/05/2014 1:50 AM [...] Adds Type of Visit Initial PT Evaluation Concrete Panel Installer Concrete Panel Installer Present no Language Egyptian Living Environment (R) Lives With alone Living Arrangements ([facility]) Home Accessibility no concerns Number of [...] up when pt is available. CECY Kearns, [facility] [phone] phone [phone] pager Joseph Quintana MD - 02/04/2014 11:51 [...] Dr. Quintana. Sina Robison MD Nephrology Fellow [phone] Attestation: This patient has been seen and [...] for this basename: PTHI, in the last 69481 hours IRON STUDIES No results found for this basename: IRON, FEB, IRONSAT, THEE, in the last 04805 hours Imaging: All imaging studies reviewed by [...] or equal to 12.0 mlU/mL. Adeline Diaz [phone] Attestation: The patient has been seen and [...] donor kidney transplant, with stent on 02/02/14. NEWSAGENT donor. Graft function:uncertain, Cr slightly up. Slow [...] . Medical Decision Making: Medium Subsequent visit 94959 (moderate level decision making) PATO/Fellow/Resident Provider: Caitlin [...] note and orders. Migel Merchant MD, PhD processing inspector Abdominal Organ Transplantation Carmelita Rosario, BOGDAN - 02/03/2014 9:38 AM CDT Patient removed from the UNOS waitlist after donor kidney transplant. UNOS ID is [id number]. Rafaela Cardona - 02/03/2014 9:17 AM CDT [...] followed general diet. Patient reports good appetite/intake COLLEGE OR UNIVERSITY DEPARTMENT HEAD, no nutrition issues/concnerns. CURRENT NUTRITION ORDERS - [...] DDKT ASSESSED NUTRITION NEEDS: Estimated Energy Needs: 0664-4839+ kcals (25-30+ Kcal/Kg) Justification: maintenance post-transplant Estimated [...] (6- 8 weeks). Rec follow heart-healthy diet buttermaker. Implementation Nutrition education: Provided instruction on post-transplant diet with discussion regarding protein sources and high protein needs in acute post-tx phase. Reviewed recommendations to follow low fat/lowsodium diet buttermaker and discussed heart healthy diet tips. Discussed [...] adjustment. Rafaela Cardona RD, LD Weekend Coverage [phone] Jose Aguirre MD - 02/03/2014 4:57 AM [...] Doing well postoperatively. Pain: Controlled by Dilaudid COAL DIGGER Diet: NPO tonight Volume Status: Borderline low UOP, continue MIVF, 0.9 % NS 500 cc bolus given for low UOP, CVP not accurate, systolic in 100-110 Recheck hemoglobin and potassium normal. Rest of the plan per primary team. Will continue to follow. Jose Aguirre MD PGY-1.................02/03/2014 Surgery Cross Cover Pager:[phone] documented in this encounter H&P Notes Caitlin [...] 1 tablet by mouth daily. ??? B vmfucht-F-baugz acid (NEPHROCAPS) 1 MG capsule Take 1 [...] Transplant Fellow, Caitlin Morales MD Surgery Cross-Cover Pager:[phone] Addendum: Donor 59 yo F NEWSAGENT, CVA, h/o HTN, CMV+, EBV+. Kidney bx [...] note and orders. Migel Merchant MD, PhD processing inspector Abdominal Organ Transplantation documented in this encounter Consult Notes Joseph Rodriguez MD - 02/04/2014 11:03 AM CDTAssociated Order(s): CARDIOLOGY IP CONSULT [facility] CARDIOLOGY CONSULT SERVICE INITIAL CONSULT NOTE [...] 1 tablet by mouth daily. ??? 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 2. There is no [...] assessment and plan. José Miguel Alvarez MD Can Filling And Closing Machine Tender Pager: [phone] February 04, 2014 Kaitlynn Leon MD - 02/03/2014 9:30 AM CDT Nephrology Initial Consult February 03, 2014 Diego Guthrie Date of : 1950 Date of Admission:02/02/2014 Primary care provider: Momo Forbes Requesting physician: Migel Merchant MD ASSESSMENT AND RECOMMENDATIONS: 1. DDKT - NEWSAGENT -59 yo women; slow graft function-no immediate need for dialysis , but may require tomorrow if UO does not draft roller picker. We will monitor Induction with Thymo/Cellcept [...] h/o type 2 Dm, who received DDKT (NEWSAGENT) on 02/02/2014 donor kidney had severe atherosclerotic [...] ??? Cataract iol, rt/lt both eyes MEDICATIONS: COLLEGE OR UNIVERSITY DEPARTMENT HEAD Meds Prior to Admission medications Medication Sig Last Dose Taking? Auth Provider Calcium Carbonate-Vitamin D (CALCIUM + D PO) Take by mouth daily. Reported, Patient lisinopril (PRINIVIL,ZESTRIL) 40 MG tablet Take 40 mg by mouth 2 times daily. Reported, Patient METOPROLOL SUCCINATE PO Take by mouth daily. Reported, Patient aspirin 81 MG tablet Take 1 tablet by mouth daily. Reported, Patient B sbgjebv-A-nzpfb acid (NEPHROCAPS) 1 MG capsule Take 1 [...] Intravenous Central line Once ??? HYDROmorphone Intravenous COAL DIGGER Infusion Meds ??? 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 Social History Main Topics [...] 98% Date 02/03/14 07 - 02/04/1459 Shift [id number] 6934-5791 8314-9003 24 Hour Total I N T A [...] inflammation in joints, no muscle tenderness : Gibsb catheter SKIN: no rash, warm, dry NEURO: [...] for this basename: PTHI, in the last 01979 hours IRON STUDIES No results found for this basename: IRON, FEB, IRONSAT, THEE, in the last 82122 hours Deysi Alicea MD Jarad Cullen MD - 02/02/2014 4:13 PM CDTAssociated Order(s): CARDIOLOGY IP CONSULT INPATIENT CARDIOLOGY CONSULTATION Requesting Provider: Migel Merchant Indication for Consultation: Preoperative evaluation immediately prior to kidney transplantation. ASSESSMENT / PLAN Deigo Guthrie is a 63M with a PMH significant for DMII - insulin dependent, HTN, HLD, diabetic neuropathy/retinopathy/nephropathy with ESRD on dialysis who presents for kidney transplant. Cardiology consulted for preoperative clearance. At this point, the patient has no cardiovascular symptoms and is able to exert himself without any problems. He did have stress test in 2012 that was normal. Patient has DM and [...] tablet by mouth daily. 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 Alvin Diego Cardiovascular Disease Fellow [phone] Patient seen and examined by me with [...] Cullen MD, PhD Jarad Cullen MD, PhD [phone] documented in this encounter Nursing Notes Gretta Mary RN - 02/02/2014 11:[address] Owens with Transplant Surgery notified of stat lab results. Magnesium replaced. Dr. Blank with Anesthesia reviewed chest x-ray. CVC not deep enough to give accurate CVP readings, however all lumens aspirate blood well. Patient is ok to transfer to unit 6B per [facility]. documented in this encounter Miscellaneous Notes Plan of Care - Amanda Hernandez RN - 02/08/2014 3:44 PM CDT Problem: IP GENERAL POC-ADULT,OB,BEHAVIORAL FVCPM Goal: Individualization/Patient-Specific Goal (Adult,OB,Behavioral The patient and/or their credit representative will achieve their patient-specific goals related [...] Card updated. [facility] facility accompanied by s.gumaro at 1600. Plan of Care - Amanda Hernandez RN - 02/08/2014 2:13 PM CDT Problem: IP GENERAL POC-ADULT,OB,BEHAVIORAL FVCPM Goal: Individualization/Patient-Specific Goal (Adult,OB,Behavioral The patient and/or their credit representative will achieve their patient-specific goals related [...] amt. Leakage. Abd. Pad in place. Rt MARAGRET drain putting out small amt. Serosanguinous drainage. [...] Individualization/Patient-Specific Goal (Adult,OB,Behavioral The patient and/or their credit representative will achieve their patient-specific goals related [...] Individualization/Patient-Specific Goal (Adult,OB,Behavioral The patient and/or their credit representative will achieve their patient-specific goals related [...] Diet recommendations post-transplant: Heart healthy dietary habits buttermaker (low saturated/trans fat, low sodium). High protein diet x 8 weeks. Practice food safety precautions - no fish/seafood x 3 weeks. Inez Luevano MS, RD, LD Pager [phone] Pharmacy-Immunosuppression Monitoring - Em Vasquez, [facility] - 02/07/2014 9:06 AM CDT [...] will continue to follow. Em Vasquez, Pharm.D., [facility] Pager [phone] Plan of Care - Annmarie Colby RN - 02/07/2014 5:11 AM CDT Problem: IP GENERAL POC-ADULT,OB,BEHAVIORAL FVCPM Goal: Individualization/Patient-Specific Goal (Adult,OB,Behavioral The patient and/or their credit representative will achieve their patient-specific goals related [...] Individualization/Patient-Specific Goal (Adult,OB,Behavioral The patient and/or their credit representative will achieve their patient-specific goals related [...] increased fluid intake, urine color is becoming anesthesiologist/physician( tea color/bloody- >dark sy/tea color). Incisional pain [...] Physical Therapy Goals The patient and/or their credit representative will achieve their patient-specific goals related [...] balance deficits. Plan of Care - Yesenia Rodriguez PT - 02/06/2014 10:09 AM CDT Problem: General Rehab Plan of Care Goal: Physical Therapy Goals The patient and/or their credit representative will achieve their patient-specific goals related [...] PM if appropriate. Plan of Care - Ashutosh Hodgson RN - 02/06/2014 7:06 AM CDT Problem: IP GENERAL POC-ADULT,OB,BEHAVIORAL FVCPM Goal: Individualization/Patient-Specific Goal (Adult,OB,Behavioral The patient and/or their credit representative will achieve their patient-specific goals related [...] with plan of care. Provider Notification - Ashutosh Hodgson RN - 02/06/2014 6:[address] Hernandes notified that pt ptt critical high 154, no new changes, continue with plan of care. Provider Notification - Ashutosh Hodgson RN - 02/06/2014 6:31 AM CDT [...] Individualization/Patient-Specific Goal (Adult,OB,Behavioral The patient and/or their credit representative will achieve their patient-specific goals related [...] Physical Therapy Goals The patient and/or their credit representative will achieve their patient-specific goals related [...] at this time. Pharmacy - Cayetano Olivera [facility] - 02/05/2014 12:26 PM CDT Visited 02/05/2014 in hospital room prior to discharge to review medications, review discharge process and review specialty pharmacy program. Med Review: Reviewed patient's medications and medical conditions. Patient would like to use [facility] to manage all medications. Medcard: [...] Specialty Pharmacy review: Discussed the benefits of [facility] and Diego has enrolled. Also gave him supplies (blood pressure cuff, thermometer, and pill box) Other concerns: No other concerns at this time. No further questions for this pharmacist. Inez Cox, Student Pharmacist Custom Dressmaker [facility] [address] [place] [id number] Cayetano Olivera, Pharmacist [facility] [phone] Pharmacy-Anticoagulation Service - Teresa Wright [facility] - 02/05/2014 11:29 AM CDT [...] Individualization/Patient-Specific Goal (Adult,OB,Behavioral The patient and/or their credit representative will achieve their patient-specific goals related [...] melonie hard time making full sentences. When hand sign writer came on shift at 8pm patient [...] Individualization/Patient-Specific Goal (Adult,OB,Behavioral The patient and/or their credit representative will achieve their patient-specific goals related [...] Physical Therapy Goals The patient and/or their credit representative will achieve their patient-specific goals related [...] by friend. Pt transferred to chair, VSS, residential monitor on, oriented to room. Pharmacy-Admission Medication History - Teresa Wright [facility] - 02/04/2014 11:54 AM CDT Admission medication history interview status for the 02/02/2014 admission is complete. See [facility] admission navigator for allergy information, prior to admission medications and immunization status. Medication history interview sources (including written lists, pill bottles, clinic record):Patient Medication history source reliability:Good Primary pharmacy:[facility] phone number: [phone] Changes made to COLLEGE OR UNIVERSITY DEPARTMENT HEAD medication list (reason) Added: Vitamin D 1,000 [...] at Unknown time Yes Reported, Patient B desavoz-V-teckv acid (NEPHROCAPS) 1 MG capsule Take 1 [...] Individualization/Patient-Specific Goal (Adult,OB,Behavioral The patient and/or their credit representative will achieve their patient-specific goals related [...] 45 minutes and remains in A-fib via equipment monitor phototypesetting. Repeat EKG around 1000 showed continued Afibl. [...] Physical Therapy Goals The patient and/or their credit representative will achieve their patient-specific goals related to the plan of care. The patient-specific goals include: PT 7A: HOLD for AM per RN - pt with a-fib this morning. Plan of Care - Alisson Diane RN - 02/04/2014 6:45 AM CDT Problem: IP GENERAL POC-ADULT,OB,BEHAVIORAL FVCPM Goal: Individualization/Patient-Specific Goal (Adult,OB,Behavioral The patient and/or their credit representative will achieve their patient-specific goals related [...] Individualization/Patient-Specific Goal (Adult,OB,Behavioral The patient and/or their credit representative will achieve their patient-specific goals related [...] to yellow. Pharmacy-Transplant Note - Davina Schuster [facility] - 02/03/2014 4:28 PM CDT [...] as appropriate. Plan of Care - Martina Burciaga, BOGDAN - 02/03/2014 3:08 PM CDT Problem: IP GENERAL POC-ADULT,OB,BEHAVIORAL FVCPM Goal: Individualization/Patient-Specific Goal (Adult,OB,Behavioral The patient and/or their credit representative will achieve their patient-specific goals related to the plan of care. The patient-specific goals include: 1. Pt will remain hemodynamically stable 2. Pt will have adequate urine output 3. Pt will be free of falls. RD Patient will verbalize understanding of 3 important aspects of post-transplant diet guidelines. PO intake >50% meals TID once diet adv. Report taken from [facility] [facility] on 6B; patient transferred to from 6B via wheelchair around 1500. Patientsettled into room, oriented to floor/room and call light. VS taken. Orders released. Continue ordersas written and notify MD with any concerns. Plan of Care - Sofie Christianson RN - 02/03/2014 2:59 PM CDT Problem: IP GENERAL POC-ADULT,OB,BEHAVIORAL FVCPM Goal: Plan of Care Review (Adult,OB,Behavioral) The patient and/or their credit representative will communicate an understanding of their [...] algorithm 2, 1 unit now. Pt still [id number] NC to maintain sats above 90 % [...] Individualization/Patient-Specific Goal (Adult,OB,Behavioral The patient and/or their credit representative will achieve their patient-specific goals related [...] Intermittent sharp R lower abd pain. Dilaudid COAL DIGGER encouraged, increased to 0.2/10/1.2. R lower abd [...] 0200 made 20cc/hr, at 0300 made 30cc/hr. [place]/red tinged urine. MIVF @ 125/hr. VSS. HR 70s, BPs 100s-120s/60s. No new orders at this time. Will continue to monitor. Plan of Care - Tasia Andrade RN - 02/03/2014 12:00 AM CDT Pt arrived to 6B from PACU, s/p DDKT. A&O x3-4. VSS. [place]/red urine output. Small amt drainage on abd [...] to Type 2 Diabetes. The patient received [facility] offer for a Donor NEWSAGENT (expanded criteria donor) kidney transplant. After discussing [...] The UNOS number of the donor is [id number]. The crossmatch was done prospectively; and the [...] reconstruction. FACULTY SURGEON: Migel Merchant M.D., Ph.D. FELLOW/ORTHOPEDIC MECHANIC SURGEON: Caitlin Owens MD fellow ANESTHESIA: None VERIFICATION: Prior to incision, I verified the donor ABO and recipient ABO. After the donor organ arrived to the operating room and prior to anastamosis, I visually verified that the donor identification, blood type, and other vital data were compatible with the recipient. FINDINGS: Donor type: NEWSAGENT (expanded criteria donor) Organ: kidney Graft Injury: [...] Individualization/Patient-Specific Goal (Adult,OB,Behavioral The patient and/or their credit representative will achieve their patient-specific goals related [...] Individualization/Patient-Specific Goal (Adult,OB,Behavioral The patient and/or their credit representative will achieve their patient-specific goals related [...] Glucose by meter (02/08/2014 12:06 PM CDT) athologist Signature Glucose 193 (H) 60 - 99 POINT OF CARE mg/dL TEST, GLUCOSE Specimen Anatomical Collection Method Collection Time Receive d Time (Source) Location / / Volume Laterality 02/08/2014 12:06 02/08/2014 PM CDT 12:10 PM CDT Migel JONES POCT Performing Organization Address City/State/[facility] Code Phon e Number FV POINT OF CARE TEST, GLUCOSE POINT OF CARE TEST, GLUCOSE (ABNORMAL) Glucose by meter (02/08/2014 8:05 AM CDT) athologist Signature Glucose 157 (H) 60 - 99 POINT OF CARE mg/dL TEST, GLUCOSE Specimen Anatomical Collection Method Collection Time Receive d Time (Source) Location / / Volume Laterality 02/08/2014 8:05 AM 4 8:10 CDT AM CDT Migel JONES POCT Performing Organization Address City/State/[facility] Code Phon e Number FV POINT OF CARE TEST, GLUCOSE POINT OF CARE TEST, GLUCOSE Tacrolimus level (02/08/2014 6:42 AM CDT) [facility] gist Method Time Signature Tacrolimus Not Provided [facility] Last Dose [facility] LABS Tacrolimus 10.0 5.0 - [facility] Level 15.0 ug/L [facility] LABS Comment: Tacrolimus Reference Range [...] Phon e Number [facility] [address] [place] [address] [facility] LABS (ABNORMAL) INR (02/08/2014 6:42 AM CDT) P athologist Signature INR 1.28 (H) 0.86 - 1.14 [facility] LABS Specimen Anatomical Collection Method Collection Time Receive d Time (Source) Location / / Volume Laterality Blood specimen 02/08/2014 6:42 AM 014 6:43 (specimen) CDT AM CDT Omaira Chavez PA-C LAB - BLOOD ORDERABLES Performing Organization Address City/[facility]/ZIP Code Phon e Number [facility] [address] [place] [id number] [facility] LABS (ABNORMAL) Basic metabolic panel (02/08/2014 6:42 AM CDT) Patholo gist Method Time Signature Sodium 144 133 - 144 [facility] mmol/L [facility] LABS Potassium 3.9 3.4 - 5.3 [facility] mmol/L [facility] LABS Chloride 110 (H) 94 - 109 [facility] mmol/L [facility]S Carbon Dioxide 25 20 - 32 [facility] mmol/L [facility] LABS Anion Gap 8 6 - 17 [facility] mmol/L [facility] LABS Glucose 144 (H) 60 - 99 [facility] mg/dL [facility]S Urea Nitrogen 66 (H) 7 - 30 [facility] mg/dL [facility] LABS Creatinine 2.38 (H) 0.66 - [facility] 1.25 mg/dL [facility] LABS GFR Estimate 28 (L) >60 [facility] mL/min/1.7 [facility] m2 CAMPUS LABS GFR Estimate If 34 (L) >60 [facility] Black mL/min/1.7 [place] m2 CAMPUS LABS Calcium 9.4 8.5 - 10.4 [facility] mg/dL [facility] LABS Specimen Anatomical Collection Method Collection Time Receive d Time (Source) Location / / Volume Laterality Blood specimen 02/08/2014 6:42 AM 014 6:43 (specimen) CDT AM CDT Omaira Chavez PA-C LAB - BLOOD ORDERABLES Performing Organization Address City/State/ZIP Code Phon e Number [facility] [address] [place] [address] [facility] LABS Phosphorus (02/08/2014 6:42 AM CDT) [...] Phon e Number [facility] [address] [place], [place] [id number] [place] [address] LABS Magnesium (02/08/2014 6:42 AM CDT) P athologist Signature Magnesium 2.2 1.6 - 2.3 [facility] mg/dL [place] [facility] Specimen Anatomical Collection Method Collection Time Receive d Time (Source) Location / / Volume Laterality Blood specimen 02/08/2014 6:42 AM 014 6:43 (specimen) CDT AM CDT Omaira Chavez PA-C LAB - BLOOD ORDERABLES Performing Organization Address City/[facility]/ZIP Code Phon e Number [facility] [address] [place] [address] [facility] LABS (ABNORMAL) CBC with platelets differential (02/08/2014 6:42 AM CDT) Patholo gist Method Time Signature WBC 4.8 4.0 - [facility] 11.0 [facility] 10e9/L [place] [facility]S RBC Count 2.56 (L) 4.4 - 5.9 [facility] 10e12/L [facility] LABS Hemoglobin 7.8 (L) 13.3 - [facility] 17.7 g/dL [facility] LABS Hematocrit 23.5 (L) 40.0 - [facility] 53.0 % [facility] LABS MCV 92 78 - [address] [facility] [address] [facility] LABS MCH 30.5 26.5 - [facility] 33.[address] [facility] LABS MCHC 33.2 31.5 - [facility] 36.5 g/dL [facility] LABS RDW 14.5 10.0 - [facility] 15.0 % [facility] LABS Platelet Count 70 (L) 150 - 450 [facility] 10e9/L [facility] LABS Diff Method Automated [facility] Method [facility] LABS % Neutrophils 86.3 % [facility] LABS % Lymphocytes 3.1 % [facility] LABS % Monocytes 9.4 % [facility] LABS % Eosinophils 1.0 % [facility] LABS % Basophils 0.0 % [facility] LABS % Immature 0.2 % [facility] Granulocytes [facility] LABS Absolute 4.1 1.6 - [...] Organization Address City/State/ZIP Code Phon e Number [address] LABS (ABNORMAL) Glucose by meter (02/07/2014 10:18 PM CDT) P athologist Signature Glucose 233 (H) 60 - 99 POINT OF CARE mg/dL TEST, GLUCOSE Specimen Anatomical Collection Method Collection Time Receive d Time (Source) Location / / Volume Laterality 02/07/2014 10:18 02/07/2014 PM CDT 10:20 PM CDT Migel Merchant MD LAB - BEAKER POCT Performing Organization Address City/[facility]/ZIP Code Phon e Number FV POINT [...] LAB - BEAKER POCT Performing Organization Address [facility] Phon e Number FV POINT OF [...] LAB - BEAKER POCT Performing Organization Address [facility] Phon e Number FV POINT OF [...] CDT Migel JONES POCT Performing Organization Address [facility] Code Phon e Number FV POINT [...] CDT Migel JONES POCT Performing Organization Address City/[facility] Code Phon e Number FV POINT OF CARE TEST, GLUCOSE POINT OF CARE TEST, GLUCOSE (ABNORMAL) INR (02/07/2014 4:23 AM CDT) athologist Signature INR 1.25 (H) 0.86 - 1.14 [facility] Specimen Anatomical Collection Method Collection Time Receive d Time (Source) Location / / Volume Laterality Blood specimen 02/07/2014 4:23 AM 014 4:24 (specimen) CDT AM CDT Omaira Chavez PA-C LAB - BLOOD ORDERABLES Performing Organization Address City/State/ZIP Code Phon e Number [facility] [address] LABS (ABNORMAL) Basic metabolic panel (02/07/2014 4:23 AM CDT) [facility] gist Method Time Signature Sodium 143 133 - 144 [facility] mmol/L [facility] LABS Potassium 4.1 3.4 - 5.3 [facility] mmol/L [facility] LABS Chloride 109 94 - 109 [facility] mmol/L [facility] LABS Carbon Dioxide 24 20 - 32 [facility] mmol/L [facility] LABS Anion Gap 10 6 - 17 [facility] mmol/L [facility] LABS Glucose 185 (H) 60 - 99 [facility] mg/dL [facility] LABS Urea Nitrogen 77 (H) 7 - 30 [facility] mg/dL [facility] LABS Creatinine 3.02 (H) 0.66 - [facility] 1.25 mg/dL [facility] LABS GFR Estimate 21 (L) >60 [facility] mL/min/1.7 [place] m2 CAMPUS LABS GFR Estimate If 26 (L) >60 [facility] Black mL/min/1.7 [place] m2 [place] LABS Calcium 9.3 8.5 - 10.4 [facility] mg/dL [facility] LABS Specimen Anatomical Collection Method Collection Time Receive d Time (Source) Location / / Volume Laterality Blood specimen 02/07/2014 4:23 AM 014 4:24 (specimen) CDT AM CDT Omaira Chavez PA-C LAB - BLOOD ORDERABLES Performing Organization Address City/State/ZIP Code Phon e Number [facility] [address] LABS Phosphorus (02/07/2014 4:23 AM CDT) athologist Signature Phosphorus 3.5 2.5 - 4.5 [facility]ITY mg/dL CAMPUS LABS Specimen Anatomical Collection Method Collection Time Receive d Time (Source) Location / / Volume Laterality Blood specimen 02/07/2014 4:23 AM 014 4:24 (specimen) CDT AM CDT Omaira Chavez PA-C LAB - BLOOD ORDERABLES Performing Organization Address City/[facility]/ZIP Code Phon e Number [facility] [address] [place], [place] [id number] [place] [address] LABS Magnesium (02/07/2014 4:23 AM CDT) P athologist Signature Magnesium 2.1 1.6 - 2.3 [facility] mg/dL [place] [facility]S Specimen Anatomical Collection Method Collection Time Receive d Time (Source) Location / / Volume Laterality Blood specimen 02/07/2014 4:23 AM 014 4:24 (specimen) CDT AM CDT Omaira Chavez PA-C LAB - BLOOD ORDERABLES Performing Organization Address City/[facility]/ZIP Code Phon e Number [facility] [address] [place] [address] [facility] LABS (ABNORMAL) CBC with platelets differential (02/07/2014 4:23 AM CDT) Patholo gist Method Time Signature WBC 2.7 (L) 4.0 - [facility] 11.0 [facility] 10e9/L [place] [facility]S RBC Count 2.80 (L) 4.4 - 5.9 [facility] 10e12/L [facility] LABS Hemoglobin 8.5 (L) 13.3 - [facility] 17.7 g/dL [facility] LABS Hematocrit 25.8 (L) 40.0 - [facility] 53.0 % [facility] LABS MCV 92 78 - [address] [facility] [address] [facility] LABS MCH 30.4 26.5 - [facility] 33.[address] [facility] LABS MCHC 32.9 31.5 - [facility] 36.5 g/dL [facility] LABS RDW 14.5 10.0 - [facility] 15.0 % [facility] LABS Platelet Count 77 (L) 150 - 450 [facility] 10e9/L [facility] LABS Diff Method Automated [facility] Method [facility] LABS % Neutrophils 87.5 % [facility] LABS % Lymphocytes 3.8 % [facility] LABS % Monocytes 8.7 % [facility] LABS % Eosinophils 0.0 % [facility] LABS % Basophils 0.0 % [facility] % Immature 0.0 % [facility] Granulocytes [facility] Absolute 2.3 1.6 - 8.3 [facility] Neutrophil 10e9/L [facility] Absolute 0.1 (L) 0.8 - 5.3 [facility] Lymphocytes 10e9/L [facility] LABS Absolute 0.2 0.0 - 1.3 [facility] Monocytes 10e9/L [facility] LABS Absolute 0.0 0.0 - 0.7 [facility] Eosinophils 10e9/L [facility] Absolute 0.0 0.0 - 0.2 [facility] Basophils 10e9/L [place] [facility] LABS Abs Immature 0.0 0 - 0.4 [facility] Granulocytes 10e9/L [facility] LABS Specimen Anatomical Collection Method Collection Time Receive d Time (Source) Location / / Volume Laterality Blood specimen 02/07/2014 4:23 AM 014 4:24 (specimen) CDT AM CDT Omaira Chavez PA-C LAB - BLOOD ORDERABLES Performing Organization Address City/[facility] Phon e Number [address] LABS (ABNORMAL) Hemoglobin A1c (02/07/2014 4:23 AM CDT) Analysis Performed At Patho logist Time Signature Hemoglobin A1C 6.1 (H) 4.3 - 6.0 [facility] % [facility] LABS Specimen Anatomical Collection Method Collection Time Receive d Time (Source) Location / / Volume Laterality Blood specimen 02/07/2014 4:23 AM 014 4:24 (specimen) CDT AM CDT Omaira Chavez PA-C LAB - BLOOD ORDERABLES Performing Organization Address City/[facility]/ZIP Code Phon e Number [facility] [address] LABS (ABNORMAL) Glucose by meter (02/06/2014 10:06 PM CDT) P athologist Signature Glucose 247 (H) 60 - 99 POINT OF CARE mg/dL TEST, GLUCOSE Specimen Anatomical Collection Method Collection Time Receive d Time (Source) Location / / Volume Laterality 02/06/2014 10:06 02/06/2014 PM CDT 10:10 PM CDT Migel JONES POCT Performing Organization Address City/State/ZIP Code Phon e Number FV POINT OF CARE TEST, GLUCOSE POINT OF CARE TEST, GLUCOSE (ABNORMAL) Glucose by meter (02/06/2014 9:11 PM CDT) athologist Signature Glucose 263 (H) 60 - [...] Glucose by meter (02/06/2014 5:30 PM CDT) athologist Signature Glucose 200 (H) 60 - [...] Signature Hemoglobin 8.8 (L) 13.3 - 17.7 [facility] g/dL [place] [facility] Specimen Anatomical Collection Method Collection Time Receive d Time (Source) Location / / Volume Laterality Blood specimen 02/06/2014 4:59 PM 014 5:12 (specimen) CDT PM CDT Omaira Chavez PA-C LAB - BLOOD ORDERABLES Performing Organization Address City/State/ZIP Code Phon e Number [facility] [address] [place] [address] [facility] LABS (ABNORMAL) Glucose by meter (02/06/2014 [...] 154 (HH) 22 - 37 sec [facility] LABS Comment: Critical Value called to and read back yeny y ASHUTOSH Poon RN AT 0642. PW Specimen Anatomical Collection Method Collection Time Receive d Time (Source) Location / / Volume Laterality 02/06/2014 5:57 AM 4 6:03 CDT AM CDT Adeline Diaz MD LAB - BLOOD ORDERABLES Performing Organization Address City/[facility]/ZIP Code Phon e Number [address] LABS Heparin Xa (10a) Level (02/06/2014 5:57 AM CDT) P athologist Signature Heparin 10A 0.92 IU/mL [facility] LABS Comment: Therapeutic Range: ?? UFH: [...] Phon e Number [facility] [address] LABS (ABNORMAL) INR (02/06/2014 5:57 AM CDT) P athologist Signature INR 1.32 (H) 0.86 - 1.14 [facility] LABS Specimen Anatomical Collection Method Collection Time Receive d Time (Source) Location / / Volume Laterality Blood specimen 02/06/2014 5:57 AM 014 6:03 (specimen) CDT AM CDT Omaira Chavez PA-C LAB - BLOOD ORDERABLES Performing Organization Address City/State/ZIP Code Phon e Number [address] LABS (ABNORMAL) Basic metabolic panel (02/06/2014 5:57 AM CDT) Patholo gist Method Time Signature Sodium 142 133 - 144 [facility] mmol/L [facility] LABS Potassium 4.7 3.4 - 5.3 [facility] mmol/L [facility] LABS Chloride 106 94 - 109 [facility] mmol/L [facility] LABS Carbon Dioxide 28 20 - 32 [facility] mmol/L [facility] LABS Anion Gap 8 6 - 17 [facility] mmol/L [facility] LABS Glucose 196 (H) 60 - 99 [facility] mg/dL [facility] LABS Urea Nitrogen 71 (H) 7 - 30 [facility] mg/dL [facility] LABS Creatinine 3.96 (H) 0.66 - [facility] 1.25 mg/dL [facility] LABS GFR Estimate 15 (L) >60 [facility] mL/min/1.7 [place] m2 CAMPUS LABS GFR Estimate If 19 (L) >60 [facility] Black mL/min/1.7 [place] [address] CAMPUS LABS Calcium 9.4 8.5 - 10.4 [facility] mg/dL [facility] LABS Specimen Anatomical Collection Method Collection Time Receive d Time (Source) Location / / Volume Laterality Blood specimen 02/06/2014 5:57 AM 014 6:03 (specimen) CDT AM CDT Omaira Chavez PA-C LAB - BLOOD ORDERABLES Performing Organization Address City/State/ZIP Code Phon e Number [facility] [address] [place] [address] LABS Phosphorus (02/06/2014 5:57 AM CDT) P athologist Signature Phosphorus 4.5 2.5 - 4.5 [facility] mg/dL [place] LABS Specimen Anatomical Collection Method Collection Time Receive d Time (Source) Location / / Volume Laterality Blood specimen 02/06/2014 5:57 AM 014 6:03 (specimen) CDT AM CDT Omaira Chavez PA-C LAB - BLOOD ORDERABLES Performing Organization Address City/State/ZIP Code Phon e Number [facility] [address] [place], [place] [phone] [place] [address] LABS Magnesium (02/06/2014 5:57 AM CDT) athologist Signature Magnesium 1.9 1.6 - 2.3 [facility] mg/dL [place] LABS Specimen Anatomical Collection Method Collection Time Receive d Time (Source) Location / / Volume Laterality Blood specimen 02/06/2014 5:57 AM 014 6:03 (specimen) CDT AM CDT Omaira Chavez PA-C LAB - BLOOD ORDERABLES Performing Organization Address City/State/ZIP Code Phon e Number [facility] [address] LABS (ABNORMAL) CBC with platelets differential (02/06/2014 5:57 AM CDT) Patholo gist Method Time Signature WBC 5.1 4.0 - [facility] 11.0 [place] 10e9/L [facility] LABS RBC Count 3.13 (L) 4.4 - 5.9 [facility] 10e12/L [facility] LABS Hemoglobin 9.6 (L) 13.3 - [facility] 17.7 g/dL [facility] LABS Hematocrit 29.0 (L) 40.0 - [facility] 53.0 % [facility] LABS MCV 93 78 - [address] [facility] [address] [facility] LABS MCH 30.7 26.5 - [facility] 33.[address] [facility] LABS MCHC 33.1 31.5 - [facility] 36.5 g/dL [facility] LABS RDW 14.5 10.0 - [facility] 15.0 % [facility] LABS Platelet Count 85 (L) 150 - 450 [facility] 10e9/L [facility] LABS Diff Method Automated [facility] Method [facility] LABS % Neutrophils 86.0 % [facility] LABS % Lymphocytes 5.1 % [facility] LABS % Monocytes 8.7 % [facility] LABS % Eosinophils 0.0 % [facility] LABS % Basophils 0.0 % [facility] LABS % Immature 0.2 % [facility] Granulocytes [facility] LABS Absolute 4.4 1.6 - 8.3 [facility] Neutrophil 10e9/L [facility] LABS Absolute 0.3 (L) 0.8 - 5.3 [facility] Lymphocytes 10e9/L [facility] LABS Absolute 0.4 0.0 - 1.3 [facility] Monocytes 10e9/L [facility] LABS Absolute 0.0 0.0 - 0.7 [facility] Eosinophils 10e9/L [facility] LABS Absolute 0.0 0.0 - 0.2 [facility] Basophils 10e9/L [facility] LABS Abs Immature 0.0 0 - 0.4 [facility] Granulocytes 10e9/L [facility] LABS Specimen Anatomical Collection Method Collection Time Receive d Time (Source) Location / / Volume Laterality Blood specimen 02/06/2014 5:57 AM 014 6:03 (specimen) CDT AM CDT Omaira Chavez PA-C LAB - BLOOD ORDERABLES Performing Organization Address City/State/ZIP Code Phon e Number [phone] [place] [address] LABS (ABNORMAL) Lipid panel reflex to direct LDL (02/06/2014 5:57 AM CDT) P athologist Signature Cholesterol 126 <200 mg/dL [facility] LABS Comment: LDL Cholesterol is the primary guide to therapy. The NCEP recommends further evaluation of: patients with cholesterol greater than 200 mg/dL if additional risk facto rs are present, cholesterol greater than 240 mg/dL, triglycerides greater than 1 50 mg/dL, or HDL less than 40 mg/dL. Triglycerides 100 0 - 150 mg/dL [facility] LABS HDL Cholesterol 35 (L) >40 mg/dL [facility] LABS LDL Cholesterol Calculated 71 0 - 129 mg/dL [facility] LABS Comment: LDL Cholesterol is the primary guide to therapy: LDL-cholesterol goal in high risk patients is <100 mg/dL and in very high risk patients is <70 mg/dL. VLDL-Cholesterol 20 0 - 30 mg/dL [facility] Cholesterol/HDL Ratio 3.6 0.0 - 5.0 [facility] Specimen Anatomical Collection Method Collection Time Receive d Time (Source) Location / / Volume Laterality Blood specimen 02/06/2014 5:57 AM 014 6:03 (specimen) CDT AM CDT Omaira Chavez PA-C LAB - BLOOD ORDERABLES Performing Organization Address City/State/ZIP Code Phon e Number [facility] [address] [place] [address] [facility] LABS Tacrolimus level (02/06/2014 5:57 AM CDT) [facility] gist Method Time Signature Tacrolimus S Negative [facility] Last Dose [facility] LABS Tacrolimus 12.7 5.0 - [facility] Level 15.0 ug/L [facility] LABS Comment: Tacrolimus Reference Range [...] Phon e Number [facility] [address] LABS (ABNORMAL) Glucose by meter (02/06/2014 3:21 AM CDT) P athologist Signature Glucose 216 (H) 60 - 99 POINT OF CARE mg/dL TEST, GLUCOSE Specimen Anatomical Collection Method Collection Time Receive d Time (Source) Location / / Volume Laterality 02/06/2014 3:21 AM 4 3:25 CDT AM CDT Migel Merchant MD LAB - BEAKER POCT Performing Organization Address City/[facility]/ZIP Code Phon e Number FV POINT OF CARE TEST, GLUCOSE POINT OF CARE TEST, GLUCOSE (ABNORMAL) Hemoglobin (02/06/2014 1:02 AM CDT) P athologist Signature Hemoglobin 10.2 (L) 13.3 - [facility] 17.7 g/dL [place] LABS Specimen Anatomical Collection Method Collection Time Receive d Time (Source) Location / / Volume Laterality Blood specimen 02/06/2014 1:02 AM 014 1:11 (specimen) CDT AM CDT Deysi Alicea MD LAB - BLOOD ORDERABLES Performing Organization Address City/[facility]/ZIP Code Phon e Number [facility] [address] LABS (ABNORMAL) Glucose by meter (02/05/2014 [...] P athologist Signature Heparin 10A 0.64 IU/mL [facility] LABS Comment: Therapeutic Range: ?? UFH: [...] Address City/State/ZIP Code Phon e Number [phone] [place] [address] LABS (ABNORMAL) Glucose by meter (02/05/2014 6:04 [...] LAB - BEAKER POCT Performing Organization Address [facility] Code Phon e Number FV POINT [...] LAB - BEAKER POCT Performing Organization Address [facility] Code Phon e Number FV POINT [...] LAB - BEAKER POCT Performing Organization Address [facility] Phon e Number FV POINT OF CARE TEST, GLUCOSE POINT OF CARE TEST, GLUCOSE (ABNORMAL) INR (02/05/2014 12:04 PM CDT) P athologist Signature INR 1.24 (H) 0.86 - 1.14 [facility] LABS Specimen Anatomical Collection Method Collection Time Receive d Time (Source) Location / / Volume Laterality Blood specimen 02/05/2014 12:04 4 (specimen) PM CDT 12:10 PM CDT Teresa Wright [facility] LAB - BLOOD ORDERABLES Performing Organization Address City/[facility]/ZIP Code Phon e Number [facility] [address] LABS (ABNORMAL) CBC with platelets (02/05/2014 12:04 PM CDT) [facility] gist Method Time Signature WBC 7.4 4.0 - 11.0 [facility] 10e9/L [facility] LABS RBC Count 3.31 (L) 4.4 - 5.9 [facility] 10e12/L [facility] LABS Hemoglobin 10.3 (L) 13.3 - [facility] 17.7 g/dL [facility] LABS Hematocrit 31.0 (L) 40.0 - [facility] 53.0 % [facility] LABS MCV 94 78 - [address] [facility] [address] [facility] LABS MCH 31.1 26.5 - [facility] 33.[address] [facility] LABS MCHC 33.2 31.5 - [facility] 36.5 g/dL [facility] LABS RDW 14.7 10.0 - [facility] 15.0 % [facility] LABS Platelet Count 91 (L) 150 - 450 [facility] 10e9/L [facility] LABS Specimen Anatomical Collection Method Collection Time Receive d Time (Source) Location / / Volume Laterality Blood specimen 02/05/2014 12:04 4 (specimen) PM CDT 12:10 PM CDT Omaira Chavez PA-C LAB - BLOOD ORDERABLES Performing Organization Address City/[facility]/ZIP Code Phon e Number [facility] [address] [place], [place] [phone] [place] [address] LABS (ABNORMAL) Glucose by meter (02/05/2014 11:25 [...] LAB - BEAKER POCT Performing Organization Address City/[facility] Code Phon e Number FV POINT [...] LAB - BEAJ POCT Performing Organization Address City/[facility] Code Phon e Number FV POINT [...] LAB - BEAKER POCT Performing Organization Address City/[facility] Phon e Number FV POINT OF CARE TEST, GLUCOSE POINT OF CARE TEST, GLUCOSE (ABNORMAL) Basic metabolic panel (02/05/2014 7:02 AM CDT) [facility] Method Time Signature Sodium 143 133 - 144 [facility] mmol/L [facility] Potassium 4.3 3.4 - 5.3 [facility] mmol/L [facility] Chloride 107 94 - 109 [facility] mmol/L [facility] [place] [facility] Carbon Dioxide 25 20 - 32 [facility] mmol/L [facility] [place] [facility] Anion Gap 10 6 - 17 [facility] mmol/L [facility] [place] [facility] Glucose 123 (H) 60 - 99 [facility] mg/dL [facility] [place] [facility] Urea Nitrogen 66 (H) 7 - 30 [facility] mg/dL [facility] [place] [facility] Creatinine 4.77 (H) 0.66 - [facility] 1.25 mg/dL [facility] [place] [facility] GFR Estimate 12 (L) >60 [facility] mL/min/1.7 [place] m2 [facility]AMP[facility] LABS GFR Estimate If 15 (L) >60 [facility] Black mL/min/1.7 [place] m2 [facility]AMPUS LABS Calcium 9.4 8.5 - 10.4 [facility] mg/dL [facility] LABS Specimen Anatomical Collection Method Collection Time Receive d Time (Source) Location / / Volume Laterality Blood specimen 02/05/2014 7:02 AM 014 7:05 (specimen) CDT AM CDT Omaira Chavez PA-C LAB - BLOOD ORDERABLES Performing Organization Address City/[facility]/ZIP Code Phon e Number [address] LABS (ABNORMAL) Phosphorus (02/05/2014 7:02 AM CDT) P athologist Signature Phosphorus 5.7 (H) 2.5 - 4.5 [facility] mg/dL [place] [facility]S Specimen Anatomical Collection Method Collection Time Receive d Time (Source) Location / / Volume Laterality Blood specimen 02/05/2014 7:02 AM 014 7:05 (specimen) CDT AM CDT Omaira Chavez PA-C LAB - BLOOD ORDERABLES Performing Organization Address City/[facility]/ZIP Code Phon e Number [address] LABS Magnesium (02/05/2014 7:02 AM CDT) P athologist Signature Magnesium 2.0 1.6 - 2.3 [facility] mg/dL [place] LABS Specimen Anatomical Collection Method Collection Time Receive d Time (Source) Location / / Volume Laterality Blood specimen 02/05/2014 7:02 AM 014 7:05 (specimen) CDT AM CDT Omaira Chavez PA-C LAB - BLOOD ORDERABLES Performing Organization Address City/State/ZIP Code Phon e Number [address] LABS (ABNORMAL) CBC with platelets differential (02/05/2014 7:02 AM CDT) [facility] gist Method Time Signature WBC 8.9 4.0 - [facility] 11.0 [facility] 10e9/L [facility] LABS RBC Count 3.20 (L) 4.4 - 5.9 [facility] 10e12/L [facility] LABS Hemoglobin 9.7 (L) 13.3 - [facility] 17.7 g/dL [facility] LABS Hematocrit 30.0 (L) 40.0 - [facility] 53.0 % [facility] LABS MCV 94 78 - [address] [facility] [address] [facility] LABS MCH 30.3 26.5 - [facility] 33.[address] [facility] LABS MCHC 32.3 31.5 - [facility] 36.5 g/dL [facility] LABS RDW 14.6 10.0 - [facility] 15.0 % [facility] LABS Platelet Count 96 (L) 150 - 450 [facility] 10e9/L [facility] LABS Diff Method Automated [facility] Method [facility] LABS % Neutrophils 90.2 % [facility] LABS % Lymphocytes 4.4 % [facility] LABS % Monocytes 5.2 % [facility] LABS % Eosinophils 0.0 % [facility] % Basophils 0.0 % [facility] % Immature 0.2 % [facility] Granulocytes [facility] LABS Absolute 8.1 1.6 - 8.3 [facility] Neutrophil 10e9/L [facility] LABS Absolute 0.4 (L) 0.8 - 5.3 [facility] Lymphocytes 10e9/L [facility] LABS Absolute 0.5 0.0 - 1.3 [facility] Monocytes 10e9/L [facility] LABS Absolute 0.0 0.0 - 0.7 [facility] Eosinophils 10e9/L [facility] LABS Absolute 0.0 0.0 - 0.2 [facility] Basophils 10e9/L [facility] LABS Abs Immature 0.0 0 - 0.4 [facility] Granulocytes 10e9/L [facility] LABS Specimen Anatomical Collection Method Collection Time Receive d Time (Source) Location / / Volume Laterality Blood specimen 02/05/2014 7:02 AM 014 7:05 (specimen) CDT AM CDT Omaira Chavez PA-C LAB - BLOOD ORDERABLES Performing Organization Address City/State/ZIP Code Phon e Number [facility] [address] [place] [address] [facility] LABS (ABNORMAL) Parathormone intact (02/05/2014 7:02 AM CDT) Patholo gist Method Time Signature Parathyroid 362 (H) 12 - 72 [facility] Hormone Intact pg/mL [facility] LABS Specimen Anatomical Collection Method Collection Time Receive d Time (Source) Location / / Volume Laterality Blood specimen 02/05/2014 7:02 AM 014 7:05 (specimen) CDT AM CDT Sina Robison MD LAB - BLOOD ORDERABLES Performing Organization Address City/[facility]/ZIP Code Phon e Number [facility] [address] LABS (ABNORMAL) Ferritin (02/05/2014 7:02 AM CDT) athologist Signature Ferritin 932 (H) 20 - 300 [facility] ng/mL [place] LABS Specimen Anatomical Collection Method Collection Time Receive d Time (Source) Location / / Volume Laterality Blood specimen 02/05/2014 7:02 AM 014 7:05 (specimen) CDT AM CDT Sina Robison MD LAB - BLOOD ORDERABLES Performing Organization Address City/[facility]/ZIP Code Phon e Number [facility] [address] LABS (ABNORMAL) Iron and iron binding capacity (02/05/2014 7:02 AM CDT) Analysis Performed At Patho logist Time Signature Iron 119 35 - 180 [facility] ug/dL [facility] LABS Iron Binding 207 (L) 240 - 430 [facility] Cap ug/dL [facility] LABS Iron Saturation 58 (H) 15 - 46 % [facility] Index [facility] LABS Specimen Anatomical Collection Method Collection Time Receive d Time (Source) Location / / Volume Laterality Blood specimen 02/05/2014 7:02 AM 014 7:05 (specimen) CDT AM CDT Sina Robison MD LAB - BLOOD ORDERABLES Performing Organization Address City/[facility]/ZIP Code Phon e Number [facility] [address] LABS (ABNORMAL) Glucose by meter (02/05/2014 6:59 AM CDT) P athologist Signature Glucose 123 (H) 60 - 99 POINT OF CARE mg/dL TEST, GLUCOSE Specimen Anatomical Collection Method Collection Time Receive d Time (Source) Location / / Volume Laterality 02/05/2014 6:59 AM 4 7:05 CDT AM CDT Migel Merchant MD LAB [...] LARES - BEAJ POCT Performing Organization Address City/[facility] Code Phon e Number FV POINT [...] LAB - BEAJ POCT Performing Organization Address City/[facility]/ZIP Code Phon e Number FV POINT [...] LAB - BEAKER POCT Performing Organization Address [facility] Phon e Number FV POINT OF [...] LAB - BEAJ POCT Performing Organization Address [facility] Phon e Number FV POINT OF [...] LAB - BEAJ POCT Performing Organization Address City/[facility] Code Phon e Number FV POINT OF CARE TEST, GLUCOSE POINT OF CARE TEST, GLUCOSE (ABNORMAL) Glucose by meter (02/05/2014 12:09 AM CDT) P athologist Signature Glucose 136 (H) 60 - 99 POINT OF CARE mg/dL TEST, GLUCOSE Specimen Anatomical Collection Method Collection Time Receive d Time (Source) Location / / Volume Laterality 02/05/2014 12:09 02/05/2014 AM CDT 12:15 AM CDT Migel Merchant MD LAB - BEAJ POCT Performing Organization Address City/[facility]/ZIP Code Phon e Number FV POINT [...] Carr MD ECG ORDERABLES Performing Organization Address [facility] Phon e Number RADIOLOGY RESULTS (ABNORMAL) Glucose by meter (02/04/2014 10:56 PM CDT) P athologist Signature Glucose 161 (H) 60 - 99 POINT OF CARE mg/dL TEST, GLUCOSE Specimen Anatomical Collection Method Collection Time Receive d Time (Source) Location / / Volume Laterality 02/04/2014 10:56 02/04/2014 PM CDT 11:00 PM CDT Migel LARES - ROBERT POCT Performing Organization Address [facility] Phon e Number FV POINT OF CARE TEST, GLUCOSE POINT OF CARE TEST, GLUCOSE (ABNORMAL) Glucose by meter (02/04/2014 9:58 PM CDT) P athologist Signature Glucose 177 (H) 60 - 99 POINT OF CARE mg/dL TEST, GLUCOSE Specimen Anatomical Collection Method Collection Time Receive d Time (Source) Location / / Volume Laterality 02/04/2014 9:58 PM 4 CDT 10:05 PM CDT Migel JONES POCT Performing Organization Address [facility] Phon e Number FV POINT OF [...] CDT Migel JONES POCT Performing Organization Address [facility]/State/ZIP Code Phon e Number FV POINT OF [...] athologist Signature Troponin I 0.016 0.000 - [facility] 0.034 ug/L [place] [facility] Specimen Anatomical Collection Method Collection Time Receive d Time (Source) Location / / Volume Laterality Blood specimen 02/04/2014 7:10 PM 014 7:23 (specimen) CDT PM CDT Adeline Diaz MD LAB - BLOOD ORDERABLES Performing Organization Address City/State/ZIP Code Phon e Number [phone] [place] [address] LABS (ABNORMAL) Glucose by meter (02/04/2014 7:01 [...] LAB - BEAJ POCT Performing Organization Address City/[facility]/ZIP Code Phon e Number FV POINT [...] LAB - BEAKER POCT Performing Organization Address City/[facility]/ZIP Code Phon e Number FV POINT OF CARE TEST, GLUCOSE POINT OF CARE TEST, GLUCOSE Troponin I (02/04/2014 12:42 PM CDT) athologist Signature Troponin I ES 0.025 0.000 - [facility] 0.034 ug/L [place] [facility]S Specimen Anatomical Collection Method Collection Time Receive d Time (Source) Location / / Volume Laterality Blood specimen 02/04/2014 12:42 4 (specimen) PM CDT 12:45 PM CDT Adeline Diaz MD LAB - BLOOD ORDERABLES Performing Organization Address City/State/ZIP Code Phon e Number [address] [address] [facility] LABS (ABNORMAL) Glucose by meter (02/04/2014 12:27 PM CDT) P athologist Signature Glucose 140 (H) 60 - 99 POINT OF CARE mg/dL TEST, GLUCOSE Specimen Anatomical Collection Method Collection Time Receive d Time (Source) Location / / Volume Laterality 02/04/2014 12:27 02/04/2014 PM CDT 12:30 PM CDT Migel Merchant MD LAB - BEAJ POCT Performing Organization Address [facility] Phon e Number FV POINT OF [...] LAB - BEAJ POCT Performing Organization Address [facility] Phon e Number FV POINT OF [...] LARES - ROBERT POCT Performing Organization Address [facility] Phon e Number FV POINT OF CARE TEST, GLUCOSE POINT OF CARE TEST, GLUCOSE EKG 12-lead, complete (02/04/2014 9:21 AM CDT) [facility] gist Method Time Signature Interpretation ECG Click View RADIOLOGY Image link RESULTS to view waveform and result Specimen (Source) Anatomical Collection Method Collection Time Re ceived Time Location / / Volume Laterality 02/04/2014 9:21 AM CDT Omaira Chavez PA-C ECG ORDERABLES Performing Organization Address [facility] Phon e Number RADIOLOGY RESULTS (ABNORMAL) Glucose by meter (02/04/2014 9:02 AM CDT) P athologist Signature Glucose 203 (H) 60 - 99 POINT OF CARE mg/dL TEST, GLUCOSE Specimen Anatomical Collection Method Collection Time Receive d Time (Source) Location / / Volume Laterality 02/04/2014 9:02 AM 4 9:05 CDT AM CDT Migel Merchant MD LAB - ROBERT POCT Performing Organization Address [facility] Phon e Number FV POINT OF [...] LAB - ROBERT POCT Performing Organization Address [facility] Phon e Number FV POINT OF CARE TEST, GLUCOSE POINT OF CARE TEST, GLUCOSE (ABNORMAL) Glucose by meter (02/04/2014 7:08 AM CDT) athologist Signature Glucose 176 (H) 60 - 99 POINT OF CARE mg/dL TEST, GLUCOSE Specimen Anatomical Collection Method Collection Time Receive d Time (Source) Location / / Volume Laterality 02/04/2014 7:08 AM 4 7:10 CDT AM CDT Migel LARES - ROBERT POCT Performing Organization Address [facility] Phon e Number FV POINT OF CARE TEST, GLUCOSE POINT OF CARE TEST, GLUCOSE EKG 12-lead, complete (02/04/2014 7:03 AM CDT) [facility] Method Time Signature Interpretation ECG Click View RADIOLOGY Image link RESULTS to view waveform and result Specimen (Source) Anatomical Collection Method Collection Time Re ceived Time Location / / Volume Laterality 02/04/2014 7:03 AM CDT Caitlin Owens MD ECG ORDERABLES Performing Organization Address [facility] Phon e Number RADIOLOGY RESULTS (ABNORMAL) Glucose by meter (02/04/2014 6:09 AM CDT) P athologist Signature Glucose 160 (H) [...] Signature Troponin I ES <0.012 0.000 - [facility] 0.034 ug/L [facility]AMP[facility] LABS Specimen Anatomical Collection Method Collection Time Receive d Time (Source) Location / / Volume Laterality 02/04/2014 5:49 AM 4 5:51 CDT AM CDT Caitlin Owens MD LAB - BLOOD ORDERABLES Performing Organization Address City/[facility]/ZIP Code Phon e Number [phone] [place], [place] [id number] [place] [facility] LABS (ABNORMAL) Basic metabolic panel (02/04/2014 5:49 AM CDT) [facility] Method Time Signature Sodium 142 133 - 144 [facility] mmol/L [facility] [place] [facility] Potassium 4.9 3.4 - 5.3 [facility] mmol/L [facility] LABS Chloride 107 94 - 109 [facility] mmol/L [facility] LABS Carbon Dioxide 23 20 - 32 [facility] mmol/L [facility] LABS Anion Gap 12 6 - 17 [facility] mmol/L [facility] LABS Glucose 151 (H) 60 - 99 [facility] mg/dL [facility] LABS Urea Nitrogen 57 (H) 7 - 30 [facility] mg/dL [facility] LABS Creatinine 5.94 (H) 0.66 - [facility] 1.25 mg/dL [facility] LABS GFR Estimate 10 (L) >60 [facility] mL/min/1.7 [place] m2 CAMPUS LABS GFR Estimate If 12 (L) >60 [facility] Black mL/min/1.7 [place] [id number] CAMPUS LABS Calcium 9.4 8.5 - 10.4 [facility] mg/dL [facility] LABS Specimen Anatomical Collection Method Collection Time Receive d Time (Source) Location / / Volume Laterality Blood specimen 02/04/2014 5:49 AM 014 5:51 (specimen) CDT AM CDT Omaira Chavez PA-C LAB - BLOOD ORDERABLES Performing Organization Address City/[facility]/ZIP Code Phon e Number [address] LABS (ABNORMAL) Phosphorus (02/04/2014 5:49 AM CDT) P athologist Signature Phosphorus 6.3 (H) 2.5 - 4.5 [facility] mg/dL [place] [facility] Specimen Anatomical Collection Method Collection Time Receive d Time (Source) Location / / Volume Laterality Blood specimen 02/04/2014 5:49 AM 014 5:51 (specimen) CDT AM CDT Omaira Chavez PA-C LAB - BLOOD ORDERABLES Performing Organization Address City/[facility]/ZIP Code Phon e Number [address] LABS Magnesium (02/04/2014 5:49 AM CDT) athologist Signature Magnesium 2.1 1.6 - 2.3 [facility] mg/dL [place] [facility] Specimen Anatomical Collection Method Collection Time Receive d Time (Source) Location / / Volume Laterality Blood specimen 02/04/2014 5:49 AM 014 5:51 (specimen) CDT AM CDT Omaira Chavez PA-C LAB - BLOOD ORDERABLES Performing Organization Address City/[facility]/ZIP Code Phon e Number [address] LABS (ABNORMAL) CBC with platelets differential (02/04/2014 5:49 AM CDT) [facility] Method Time Signature WBC 13.8 (H) 4.0 - [facility] 11.0 [place] 10e9/L [facility] RBC Count 3.10 (L) 4.4 - 5.9 [facility] 10e12/L [facility] LABS Hemoglobin 9.5 (L) 13.3 - [facility] 17.7 g/dL [facility] LABS Hematocrit 28.7 (L) 40.0 - [facility] 53.0 % [facility] LABS MCV 93 78 - [address] [facility] [address] [facility] LABS MCH 30.6 26.5 - [facility] 33.[address] [facility] LABS MCHC 33.1 31.5 - [facility] 36.5 g/dL [facility] LABS RDW 14.6 10.0 - [facility] 15.0 % [facility] LABS Platelet Count 91 (L) 150 - 450 [facility] 10e9/L [facility] LABS Diff Method Automated [facility] Method [facility] LABS % Neutrophils 95.8 % [facility] LABS % Lymphocytes 1.2 % [facility] LABS % Monocytes 2.8 % [facility] LABS % Eosinophils 0.0 % [facility] LABS % Basophils 0.0 % [facility] LABS % Immature 0.2 % [facility] Granulocytes [facility] LABS Absolute 13.2 (H) 1.6 - 8.3 [facility] Neutrophil 10e9/L [facility] LABS Absolute 0.2 (L) 0.8 - 5.3 [facility] Lymphocytes 10e9/L [facility] LABS Absolute 0.4 0.0 - 1.3 [facility] Monocytes 10e9/L [facility] LABS Absolute 0.0 0.0 - 0.7 [facility] Eosinophils 10e9/L [facility] LABS Absolute 0.0 0.0 - 0.2 [facility] Basophils 10e9/L [facility] LABS Abs Immature 0.0 0 - 0.4 [facility] Granulocytes 10e9/L [facility] LABS Specimen Anatomical Collection Method Collection Time Receive d Time (Source) Location / / Volume Laterality Blood specimen 02/04/2014 5:49 AM 014 5:51 (specimen) CDT AM CDT Omaira Chavez PA-C LAB - BLOOD ORDERABLES Performing Organization Address City/State/ZIP Code Phon e Number [phone] [place] [address] LABS (ABNORMAL) Glucose by meter (02/04/2014 5:33 [...] LAB - BEAJ POCT Performing Organization Address [facility]/ZIP Code Phon e Number FV POINT [...] LAB - BEAJ POCT Performing Organization Address [facility]/ZIP Code Phon e Number FV POINT OF CARE TEST, GLUCOSE POINT OF CARE TEST, GLUCOSE Glucose by meter (02/04/2014 1:44 AM CDT) P athologist Signature Glucose 99 60 - 99 POINT OF CARE mg/dL TEST, GLUCOSE Specimen Anatomical Collection Method Collection Time Receive d Time (Source) Location / / Volume Laterality 02/04/2014 1:44 AM 4 1:50 CDT AM CDT Migel LARES - BEAJ POCT Performing Organization Address [facility]/ZIP Code Phon e Number FV POINT OF CARE TEST, GLUCOSE POINT OF CARE TEST, GLUCOSE (ABNORMAL) Glucose by meter (02/04/2014 12:07 AM CDT) P athologist Signature Glucose 126 (H) 60 - 99 POINT OF CARE mg/dL TEST, GLUCOSE Specimen Anatomical Collection Method Collection Time Receive d Time (Source) Location / / Volume Laterality 02/04/2014 12:07 02/04/2014 AM CDT 12:10 AM CDT Migel Merchant MD LAB - [...] 02/03/2014 PM CDT 11:10 PM CDT Migel Merchant MD LAB - BEAJ POCT Performing Organization Address City/State/ZIP Code Phon e Number FV POINT OF CARE TEST, GLUCOSE POINT OF CARE TEST, GLUCOSE Potassium (02/03/2014 10:16 PM CDT) athologist Signature Potassium 4.8 3.4 - 5.3 [facility] mmol/L CAMPUS LABS Specimen Anatomical Collection Method Collection Time Receive d Time (Source) Location / / Volume Laterality Blood specimen 02/03/2014 10:16 4 (specimen) PM CDT 10:19 PM CDT Caitlin Owens MD LAB - BLOOD ORDERABLES Performing Organization Address City/[facility]/ZIP Code Phon e Number [address] LABS (ABNORMAL) Hemoglobin (02/03/2014 10:16 PM CDT) athologist Signature Hemoglobin 9.4 (L) 13.3 - 17.7 [facility] g/dL CAMPUS LABS Specimen Anatomical Collection Method Collection Time Receive d Time (Source) Location / / Volume Laterality Blood specimen 02/03/2014 10:16 4 (specimen) PM CDT 10:19 PM CDT Caitlin Owens MD LAB - BLOOD ORDERABLES Performing Organization Address City/[facility]/ZIP Code Phon e Number [facility] [address] LABS (ABNORMAL) Glucose by meter [...] LAB - BEAJ POCT Performing Organization Address [facility] Code Phon e Number FV POINT OF CARE TEST, GLUCOSE POINT OF CARE TEST, GLUCOSE (ABNORMAL) Glucose by meter (02/03/2014 8:06 PM CDT) P athologist Signature Glucose 128 (H) 60 - 99 POINT OF CARE mg/dL TEST, GLUCOSE Specimen Anatomical Collection Method Collection Time Receive d Time (Source) Location / / Volume Laterality 02/03/2014 8:06 PM 4 8:10 CDT PM CDT Migel LARES - BEAJ POCT Performing Organization Address City/[facility] Code Phon e Number FV POINT OF CARE TEST, GLUCOSE POINT OF CARE TEST, GLUCOSE (ABNORMAL) Glucose by meter (02/03/2014 7:08 PM CDT) P athologist Signature Glucose 111 (H) 60 - 99 POINT OF CARE mg/dL TEST, GLUCOSE Specimen Anatomical Collection Method Collection Time Receive d Time (Source) Location / / Volume Laterality 02/03/2014 7:08 PM 4 7:10 CDT PM CDT Migel LARES - BEAJ POCT Performing Organization Address City/[facility]/ZIP Code Phon e Number FV POINT OF CARE TEST, GLUCOSE POINT OF CARE TEST, GLUCOSE Potassium (02/03/2014 6:52 PM CDT) P athologist Signature Potassium 4.7 3.4 - 5.3 [facility] mmol/L CAMPUS LABS Specimen Anatomical Collection Method Collection Time Receive d Time (Source) Location / / Volume Laterality Blood specimen 02/03/2014 6:52 PM 014 6:53 (specimen) CDT PM CDT Caitlin Owens MD LAB - BLOOD ORDERABLES Performing Organization Address City/[facility]/ZIP Code Phon e Number [address] LABS (ABNORMAL) Hemoglobin (02/03/2014 6:52 PM CDT) athologist Signature Hemoglobin 9.6 (L) 13.3 - 17.7 [facility] g/dL [place] LABS Specimen Anatomical Collection Method Collection Time Receive d Time (Source) Location / / Volume Laterality Blood specimen 02/03/2014 6:52 PM 014 6:53 (specimen) CDT PM CDT Caitlin Owens MD LAB - BLOOD ORDERABLES Performing Organization Address City/[facility]/ZIP Code Phon e Number [address] LABS (ABNORMAL) Glucose by meter (02/03/2014 6:00 [...] athologist Signature Potassium 4.7 3.4 - 5.3 [facility] mmol/L CAMPUS LABS Specimen Anatomical Collection Method Collection Time Receive d Time (Source) Location / / Volume Laterality Blood specimen 02/03/2014 1:41 PM 014 1:43 (specimen) CDT PM CDT Caitlin Owens MD LAB - BLOOD ORDERABLES Performing Organization Address City/State/ZIP Code Phon e Number [facility] [address] [place] [address] [facility] LABS (ABNORMAL) Hemoglobin (02/03/2014 1:41 PM CDT) P athologist Signature Hemoglobin 9.8 (L) 13.3 - 17.7 [facility] g/dL CAMPUS LABS Specimen Anatomical Collection Method Collection Time Receive d Time (Source) Location / / Volume Laterality Blood specimen 02/03/2014 1:41 PM 02/03/2 014 1:43 (specimen) CDT PM CDT Caitlin Owens MD LAB - BLOOD ORDERABLES Performing Organization Address City/State/ZIP Code Phon e Number [facility] [address] [place] [address] [facility] LABS (ABNORMAL) Glucose by meter (02/03/2014 1:10 PM CDT) P athologist Signature Glucose 135 (H) 60 - 99 POINT OF CARE mg/dL TEST, GLUCOSE Specimen Anatomical Collection Method Collection Time Receive d Time (Source) Location / / Volume Laterality 02/03/2014 1:10 PM 4 1:15 CDT PM CDT Migel Merchant MD LAB - BEAJ POCT Performing Organization Address City/[facility]/ZIP Code Phon e Number FV POINT [...] LAB - BEAJ POCT Performing Organization Address City/[facility]/ZIP Code Phon e Number FV POINT [...] LAB - BEAJ POCT Performing Organization Address City/[facility]/ZIP Code Phon e Number FV POINT OF CARE TEST, GLUCOSE POINT OF CARE TEST, GLUCOSE Potassium (02/03/2014 10:11 AM CDT) P athologist Signature Potassium 4.8 3.4 - 5.3 [facility] mmol/L CAMPUS LABS Specimen Anatomical Collection Method Collection Time Receive d Time (Source) Location / / Volume Laterality Blood specimen 02/03/2014 10:11 4 (specimen) AM CDT 10:23 AM CDT Caitlin Owens MD LAB - BLOOD ORDERABLES Performing Organization Address [facility]/ZIP Code Phon e Number [address] LABS (ABNORMAL) Hemoglobin (02/03/2014 10:11 AM CDT) athologist Signature Hemoglobin 9.7 (L) 13.3 - 17.7 [facility] g/dL CAMPUS LABS Specimen Anatomical Collection Method Collection Time Receive d Time (Source) Location / / Volume Laterality Blood specimen 02/03/2014 10:11 4 (specimen) AM CDT 10:23 AM CDT Caitlin Owens MD LAB - BLOOD ORDERABLES Performing Organization Address [facility]/ZIP Code Phon e Number [address] LABS (ABNORMAL) Glucose by meter (02/03/2014 9:58 AM CDT) athologist Signature Glucose 168 (H) 60 - 99 POINT OF CARE mg/dL TEST, GLUCOSE Specimen Anatomical Collection Method Collection Time Receive d Time (Source) Location / / Volume Laterality 02/03/2014 9:58 AM 4 CDT 10:00 AM CDT Migel Merchant MD LAB - BEAKER POCT Performing Organization Address City/[facility]/ZIP Code Phon e Number FV POINT OF CARE TEST, GLUCOSE POINT OF CARE TEST, GLUCOSE (ABNORMAL) Glucose by meter (02/03/2014 9:13 AM CDT) athologist Signature Glucose 169 (H) [...] Glucose by meter (02/03/2014 8:06 AM CDT) athologist Signature Glucose 176 (H) 60 - 99 POINT OF CARE mg/dL TEST, GLUCOSE Specimen Anatomical Collection Method Collection Time Receive d Time (Source) Location / / Volume Laterality 02/03/2014 8:06 AM 4 8:10 CDT AM CDT Migel LARES - ROBERT POCT Performing Organization Address [facility] Phon e Number FV POINT OF [...] LARES - ROBERT POCT Performing Organization Address [facility] Phon e Number FV POINT OF [...] LARES - ROBERT POCT Performing Organization Address [facility] Phon e Number FV POINT OF CARE TEST, GLUCOSE POINT OF CARE TEST, GLUCOSE (ABNORMAL) Basic metabolic panel (02/03/2014 5:38 AM CDT) [facility] gist Method Time Signature Sodium 141 133 - 144 [facility] mmol/L [facility] LABS Potassium 4.4 3.4 - 5.3 [facility] mmol/L [facility] LABS Chloride 105 94 - 109 [facility] mmol/L [facility] LABS Carbon Dioxide 20 20 - 32 [facility] mmol/L [facility] LABS Anion Gap 15 6 - 17 [facility] mmol/L [facility] LABS Glucose 170 (H) 60 - 99 [facility] mg/dL [facility] LABS Urea Nitrogen 49 (H) 7 - 30 [facility] mg/dL [facility] LABS Creatinine 6.38 (H) 0.66 - [facility] 1.25 mg/dL [facility] LABS GFR Estimate 9 (L) >60 [facility] mL/min/1.7 [place] m2 [place] LABS GFR Estimate If 11 (L) >60 [facility] Black mL/min/1.7 [place] m2 [place] LABS Calcium 9.1 8.5 - 10.4 [facility] mg/dL [facility] LABS Specimen Anatomical Collection Method Collection Time Receive d Time (Source) Location / / Volume Laterality Blood specimen 02/03/2014 5:38 AM 014 5:40 (specimen) CDT AM CDT Omaira Chavez PA-C LAB - BLOOD ORDERABLES Performing Organization Address City/State/ZIP Code Phon e Number [facility] [address] LABS (ABNORMAL) Phosphorus (02/03/2014 5:38 AM CDT) P athologist Signature Phosphorus 4.7 (H) 2.5 - 4.5 [facility] [place] mg/dL [place] LABS Specimen Anatomical Collection Method Collection Time Receive d Time (Source) Location / / Volume Laterality Blood specimen 02/03/2014 5:38 AM 014 5:40 (specimen) CDT AM CDT Omaira Chavez PA-C LAB - BLOOD ORDERABLES Performing Organization Address City/State/ZIP Code Phon e Number [facility] [address] LABS Magnesium (02/03/2014 5:38 AM CDT) P athologist Signature Magnesium 2.0 1.6 - 2.3 [facility] [place] mg/dL [place] LABS Specimen Anatomical Collection Method Collection Time Receive d Time (Source) Location / / Volume Laterality Blood specimen 02/03/2014 5:38 AM 014 5:40 (specimen) CDT AM CDT Omaira Chavez PA-C LAB - BLOOD ORDERABLES Performing Organization Address City/State/ZIP Code Phon e Number [address] [address] [facility] LAB[facility] (ABNORMAL) CBC with platelets differential (02/03/2014 5:38 AM CDT) [facility] gist Method Time Signature WBC 13.2 (H) 4.0 - [facility] 11.0 UN[facility]ITY 10e9/L CAMPUS LABS RBC Count 3.20 (L) 4.4 - 5.9 [facility] 10e12/L [facility] LABS Hemoglobin 9.9 (L) 13.3 - [facility] 17.7 g/dL [facility] LABS Hematocrit 30.2 (L) 40.0 - [facility] 53.0 % [facility] LABS MCV 94 78 - 100 [facility] fl [facility]ITY [place] LABS MCH 30.9 26.5 - [facility] 33.[address] [facility] LABS MCHC 32.8 31.5 - [facility] 36.5 g/dL [facility] LABS RDW 14.5 10.0 - [facility] 15.0 % [facility] [place] LABS Platelet Count 108 (L) 150 - 450 [facility] 10e9/L [facility] LABS Diff Method Automated [facility] Method [facility] LABS % Neutrophils 96.9 % [facility] LABS % Lymphocytes 0.7 % [facility] % Monocytes 2.1 % [facility] LABS % Eosinophils 0.0 % [facility] % Basophils 0.1 % [facility] % Immature 0.2 % [facility] Granulocytes [facility] LABS Absolute 12.8 (H) 1.6 - 8.3 [facility] Neutrophil 10e9/L [facility] LABS Absolute 0.1 (L) 0.8 - 5.3 [facility] Lymphocytes 10e9/L [facility] LABS Absolute 0.3 0.0 - 1.3 [facility] Monocytes 10e9/L [facility] LABS Absolute 0.0 0.0 - 0.7 [facility] Eosinophils 10e9/L [facility] LABS Absolute 0.0 0.0 - 0.2 [facility] Basophils 10e9/L [facility] LABS Abs Immature 0.0 0 - 0.4 [facility] Granulocytes 10e9/L [facility] LABS Specimen Anatomical Collection Method Collection Time Receive d Time (Source) Location / / Volume Laterality Blood specimen 02/03/2014 5:38 AM 014 5:40 (specimen) CDT AM CDT Omaira Chavez PA-C LAB - BLOOD ORDERABLES Performing Organization Address City/[facility]/ZIP Code Phon e Number [facility] [address] LABS (ABNORMAL) Hemoglobin A1c (02/03/2014 5:38 AM CDT) Analysis Performed At Patho logist Time Signature Hemoglobin A1C 6.2 (H) 4.3 - 6.0 [facility] LABS Specimen Anatomical Collection Method Collection Time Receive d Time (Source) Location / / Volume Laterality Blood specimen 02/03/2014 5:38 AM 014 5:40 (specimen) CDT AM CDT Caitlin Owens MD LAB - BLOOD ORDERABLES Performing Organization Address City/[facility]/ZIP Code Phon e Number [address] LABS (ABNORMAL) Glucose by meter (02/03/2014 5:05 AM CDT) P athologist Signature Glucose 176 (H) 60 - 99 POINT OF CARE mg/dL TEST, GLUCOSE Specimen Anatomical Collection Method Collection Time Receive d Time (Source) Location / / Volume Laterality 02/03/2014 5:05 AM 4 5:10 CDT AM CDT Migel Merchant MD LAB - BEAKER POCT Performing Organization Address City/[facility]/ZIP Code Phon e Number FV POINT [...] LAB - BEAJ POCT Performing Organization Address City/[facility]/ZIP Code Phon e Number FV POINT OF CARE TEST, GLUCOSE POINT OF CARE TEST, GLUCOSE (ABNORMAL) Glucose by meter (02/03/2014 2:59 AM CDT) athologist Signature Glucose 205 (H) [...] LARES - BEAJ POCT Performing Organization Address City/[facility]/ZIP Code Phon e Number FV POINT OF CARE TEST, GLUCOSE POINT OF CARE TEST, GLUCOSE Potassium (02/03/2014 1:18 AM CDT) athologist Signature Potassium 4.7 3.4 - 5.3 [facility] mmol/L CAMPUS LABS Specimen Anatomical Collection Method Collection Time Receive d Time (Source) Location / / Volume Laterality Blood specimen 02/03/2014 1:18 AM 014 1:20 (specimen) CDT AM CDT Caitlin Owens MD LAB - BLOOD ORDERABLES Performing Organization Address City/State/ZIP Code Phon e Number [address] [address] [facility] LABS (ABNORMAL) Hemoglobin (02/03/2014 1:18 AM CDT) athologist Signature Hemoglobin 9.8 (L) 13.3 - 17.7 [facility] g/dL CAMPUS LABS Specimen Anatomical Collection Method Collection Time Receive d Time (Source) Location / / Volume Laterality Blood specimen 02/03/2014 1:18 AM 014 1:20 (specimen) CDT AM CDT Caitlin Owens MD LAB - BLOOD ORDERABLES Performing Organization Address City/State/ZIP Code Phon e Number [address] [address] [facility] LABS (ABNORMAL) Glucose by meter (02/03/2014 [...] 02/03/2014 AM CDT 12:15 AM CDT Migel LARES - BEAJ POCT Performing Organization Address City/[facility]/ZIP Code Phon e Number FV POINT [...] and I agree with the findings. AIRAM MONATNA MD Narrative 02/03/2014 4:19 AM CDT XR [...] 02/03/2014 PM CDT 12:15 AM CDT Migel LARES - BEAKER POCT Performing Organization Address City/State/ZIP Code Phon e Number FV POINT OF CARE TEST, GLUCOSE POINT OF CARE TEST, GLUCOSE Phosphorus (02/02/2014 10:50 PM CDT) athologist Signature Phosphorus 4.4 2.5 - 4.5 [facility] mg/dL [place] LABS Specimen Anatomical Collection Method Collection Time Receive d Time (Source) Location / / Volume Laterality Blood specimen 02/02/2014 10:50 4 (specimen) PM CDT 11:06 PM CDT Caitlin Owens MD LAB - BLOOD ORDERABLES Performing Organization Address City/State/ZIP Code Phon e Number [facility] [address] [place], [place] [id number] [place] [address] LABS Magnesium (02/02/2014 10:50 PM CDT) P athologist Signature Magnesium 1.8 1.6 - 2.3 [facility] mg/dL CAMPUS LABS Specimen Anatomical Collection Method Collection Time Receive d Time (Source) Location / / Volume Laterality Blood specimen 02/02/2014 10:50 4 (specimen) PM CDT 11:06 PM CDT Caitlin Owens MD LAB - BLOOD ORDERABLES Performing Organization Address City/State/ZIP Code Phon e Number [facility] [address] LABS (ABNORMAL) Basic metabolic panel (02/02/2014 10:50 PM CDT) Patholo gist Method Time Signature Sodium 138 133 - 144 [facility] mmol/L [facility] LABS Potassium 4.5 3.4 - 5.3 [facility] mmol/L [facility] LABS Chloride 104 94 - 109 [facility] mmol/L [facility] LABS Carbon Dioxide 25 20 - 32 [facility] mmol/L [facility] LABS Anion Gap 10 6 - 17 [facility] mmol/L [facility] LABS Glucose 134 (H) 60 - 99 [facility] mg/dL [facility] LABS Urea Nitrogen 44 (H) 7 - 30 [facility] mg/dL [facility] LABS Creatinine 6.14 (H) 0.66 - [facility] 1.25 mg/dL [facility] LABS GFR Estimate 9 (L) >60 [facility] mL/min/1.7 [place] m2 CAMPUS LABS GFR Estimate If 11 (L) >60 [facility] Black mL/min/1.7 [place] [address] CAMPUS LABS Calcium 8.8 8.5 - 10.4 [facility] mg/dL [facility] LABS Specimen Anatomical Collection Method Collection Time Receive d Time (Source) Location / / Volume Laterality Blood specimen 02/02/2014 10:50 4 (specimen) PM CDT 11:06 PM CDT Caitlin Owens MD LAB - BLOOD ORDERABLES Performing Organization Address City/State/ZIP Code Phon e Number [facility] [address] [place], [place] [id number] [place] [address] LABS (ABNORMAL) CBC with platelets differential (02/02/2014 10:50 PM CDT) [facility] Method Time Signature WBC 8.2 4.0 - [facility] 11.0 UN[facility]ITY 10e9/L CAMPUS LABS RBC Count 3.34 (L) 4.4 - 5.9 [facility] 10e12/L [facility] LABS Hemoglobin 10.3 (L) 13.3 - [facility] 17.7 g/dL [facility] LABS Hematocrit 30.9 (L) 40.0 - [facility] 53.0 % [facility] LABS MCV 93 78 - [address] [facility] [address] [facility] LABS MCH 30.8 26.5 - [facility] 33.[address] [facility] LABS MCHC 33.3 31.5 - [facility] 36.5 g/dL [facility] LABS RDW 14.3 10.0 - [facility] 15.0 % [facility] LABS Platelet Count 79 (L) 150 - 450 [facility] 10e9/L [facility] LABS Diff Method Automated [facility] Method [facility] LABS % Neutrophils 96.7 % [facility] LABS % Lymphocytes 1.6 % [facility] LABS % Monocytes 1.2 % [facility] % Eosinophils 0.4 % [facility] LAB[facility] % Basophils 0.0 % [facility] LABS % Immature 0.1 % [facility] Granulocytes [facility] LABS Absolute 7.9 1.6 - 8.3 [facility] Neutrophil 10e9/L [facility] LABS Absolute 0.1 (L) 0.8 - 5.3 [facility] Lymphocytes 10e9/L [facility] LABS Absolute 0.1 0.0 - 1.3 [facility] Monocytes 10e9/L [facility] LABS Absolute 0.0 0.0 - 0.7 [facility] Eosinophils 10e9/L [facility] LABS Absolute 0.0 0.0 - 0.2 [facility] Basophils 10e9/L [facility] LABS Abs Immature 0.0 0 - 0.4 [facility] Granulocytes 10e9/L [facility] LABS Specimen Anatomical Collection Method Collection Time Receive d Time (Source) Location / / Volume Laterality Blood specimen 02/02/2014 10:50 4 (specimen) PM CDT 11:06 PM CDT Caitlin Owens MD LAB - BLOOD ORDERABLES Performing Organization Address City/State/ZIP Code Phon e Number [facility] [address] [place] [address] [facility] LABS (ABNORMAL) VENOUS PANEL (02/02/2014 10:09 PM CDT) Patholo gist Method Time Signature Ph Venous 7.31 (L) 7.32 - [facility] 7.[address] [facility] LABS PCO2 Venous 52 (H) 40 - 50 [facility] mm Hg [facility] LABS PO2 Venous 34 25 - 47 [facility] mm Hg [facility] LABS Bicarbonate 26 21 - 28 [facility] Venous mmol/L [facility] LABS Base Deficit 0.3 mmol/L [facility] Venous [facility] LABS Comment: Reference range: -7.7 to 1.9 FIO2 45 [facility] LABS Sodium 137 133 - 144 mmol/L [facility] LABS Potassium 4.4 3.4 - 5.3 mmol/L [facility] LABS Hemoglobin 10.0 (L) 13.3 - 17.7 g/dL [facility] LABS Glucose 116 (H) 60 - 99 mg/dL [facility] LABS Calcium Ionized Whole Blood 4.8 4.4 - 5.2 mg/dL [facility] LABS Specimen Anatomical Collection Method Collection Time Receive d Time (Source) Location / / Volume Laterality 02/02/2014 10:09 02/02/2014 PM CDT 10:14 PM CDT Migel Merchant MD LAB - BLOOD ORDERABLES Performing Organization Address City/State/ZIP Code Phon e Number [id number] [place] [address] LABS (ABNORMAL) Glucose by meter (02/02/2014 9:24 PM CDT) athologist Signature Glucose 129 (H) 60 - [...] PM 4 8:15 CDT PM CDT Migel LARES - ROBERT POCT Performing Organization Address City/State/ZIP Code Phon e Number FV POINT OF CARE TEST, GLUCOSE POINT OF CARE TEST, GLUCOSE (ABNORMAL) VENOUS PANEL (02/02/2014 6:40 PM CDT) athologist Signature Ph Venous 7.35 7.32 - [facility] 7.[address] [facility] LABS PCO2 Venous 50 40 - 50 mm [facility] Hg [facility] LABS PO2 Venous 46 25 - 47 mm [facility] Hg [facility] LABS Bicarbonate 28 21 - 28 [facility] Venous mmol/L [facility] LABS Base Excess 1.8 mmol/L [facility] Venous [facility] LABS Comment: Reference range: -7.7 to 1.9 FIO2 100% [facility] LABS Sodium 141 133 - 144 mmol/L [facility] LABS Potassium 3.7 3.4 - 5.3 mmol/L [facility] LABS Hemoglobin 10.3 (L) 13.3 - 17.7 g/dL [facility] LABS Glucose 76 60 - 99 mg/dL [facility] LABS Calcium Ionized Whole Blood 4.8 4.4 - 5.2 mg/dL [facility] LABS Specimen Anatomical Collection Method Collection Time Receive d Time (Source) Location / / Volume Laterality 02/02/2014 6:40 PM 4 6:44 CDT PM CDT Migel Merchant MD LAB - BLOOD ORDERABLES Performing Organization Address City/[facility]/ZIP Code Phon e Number [phone] [place] [address] LABS Glucose by meter (02/02/2014 5:11 PM CDT) athologist Signature Glucose 89 60 - 99 POINT OF CARE mg/dL TEST, GLUCOSE Specimen Anatomical Collection Method Collection Time Receive d Time (Source) Location / / Volume Laterality 02/02/2014 5:11 PM 4 5:15 CDT PM CDT Migel LARES - ROBERT [...] 3:50 CDT PM CDT Migel Merchant MD [facility] POCT Performing Organization Address City/State/ZIP Code [...] MARYELLEN Blood component (02/02/2014 2:07 PM CDT) [facility] gist Method Time Signature Unit Number [id number] [facility] LABS Blood Red Blood [facility] Component Cells [facility] Leukocyte [place] LABS Reduced Division 00 [facility] LABS Status of No longer [place] Unit available [facility] 02/06/2014 HOSPITAL LAB 0300 Specimen Anatomical Collection Method Collection Time Receive d Time (Source) Location / / Volume Laterality 02/02/2014 2:07 PM 4 2:10 CDT PM CDT Caitlin Owens MD LABORATORY Performing Organization Address City/[facility] Code Phon santino Fletcher [facility] [address] [place], [place] [address] [facility] LABS [facility] LAB Blood component (02/02/2014 2:07 PM CDT) [facility] Method Time Signature Unit Number [id number] [facility] LABS Blood Red Blood [facility] Component Cells [facility] LABS Reduced Division 00 [facility] LABS Status of No longer [place] Unit available [facility] 02/06/2014 HOSPITAL LAB 0300 Specimen Anatomical Collection Method Collection Time Receive d Time (Source) Location / / Volume Laterality 02/02/2014 2:07 PM 4 2:10 CDT PM CDT Caitlin Owens MD LABORATORY Performing Organization Address City/[facility] Code Phon santino Acevedo [place] [address] [place], [place] [address] [facility] LABS [facility] LAB ABO/Rh type and screen (02/02/2014 2:07 PM CDT) [facility] Method Time Signature Units Ordered 2 [facility] LABS ABO A [facility] LABS RH(D) Pos [facility] LABS Antibody Neg [facility] Screen [facility] LABS Test Valid [facility] Only At [facility] BLOOD BANK Center,Aide LAB w Hospital Specimen 02/05/2014 [facility] BLOOD BANK LAB Crossmatch Red Blood [facility] Cells [facility] LABS Specimen Anatomical Collection Method Collection Time Receive d Time (Source) Location / / Volume Laterality Blood specimen 02/02/2014 2:07 PM 014 2:10 (specimen) CDT PM CDT aCitlin Owens MD LAB - BLOOD BANK TEST ORDER Performing Organization Address City/[facility]/ZIP Code Phon e Number [facility] [facility] [address] [place] [address] [facility] BLOOD BANK LAB (ABNORMAL) Lipid Profile (02/02/2014 2:07 PM CDT) P athologist Signature Cholesterol 135 <200 mg/dL [facility] Comment: LDL Cholesterol is the primary guide to therapy. The NCEP recommends further evaluation of: patients with cholesterol greater than 200 mg/dL if additional risk facto rs are present, cholesterol greater than 240 mg/dL, triglycerides greater than 1 50 mg/dL, or HDL less than 40 mg/dL. Triglycerides 124 0 - 150 mg/dL [facility] LAB[facility] HDL Cholesterol 34 (L) >40 mg/dL [facility] LDL Cholesterol Calculated 77 0 - 129 mg/dL [facility] Comment: LDL Cholesterol is the primary guide to therapy: LDL-cholesterol goal in high risk patients is <100 mg/dL and in very high risk patients is <70 mg/dL. VLDL-Cholesterol 25 0 - 30 mg/dL [facility] Cholesterol/HDL Ratio 4.0 0.0 - 5.0 [facility] LAB[facility] Specimen Anatomical Collection Method Collection Time Receive d Time (Source) Location / / Volume Laterality Blood specimen 02/02/2014 2:07 PM 014 2:08 (specimen) CDT PM CDT Caitlin Owens MD LAB - BLOOD ORDERABLES Performing Organization Address City/[facility]/ZIP Code Phon e Number [facility] [address] [place] [address] [facility] (ABNORMAL) Hemoglobin A1c (02/02/2014 2:07 PM CDT) Analysis Performed At Patho logist Time Signature Hemoglobin A1C 6.2 (H) 4.3 - 6.0 [facility] LABS Specimen Anatomical Collection Method Collection Time Receive d Time (Source) Location / / Volume Laterality Blood specimen 02/02/2014 2:07 PM 014 2:08 (specimen) CDT PM CDT Caitlin Owens MD LAB - BLOOD ORDERABLES Performing Organization Address City/State/ZIP Code Phon e Number [facility] [address] [place] [address] [facility] Hepatitis C antibody (02/02/2014 2:07 PM CDT) [facility] Method Time Signature Hepatitis C Negative NEG [facility] Antibody MICROBIOLOGY Specimen Anatomical Collection Method Collection Time Receive d Time (Source) Location / / Volume Laterality Blood specimen 02/02/2014 2:07 PM 2 014 2:08 (specimen) CDT PM CDT Caitlin Owens MD LAB - BLOOD ORDERABLES Performing Organization Address City/State/ZIP Code Phon e Number [facility] [address] [place] [address] [facility] MICROBIOLOGY Hepatitis B core antibody IgM (02/02/2014 2:07 PM CDT) [facility] Signature Hepatitis B Negative NEG [facility] Core IgM MICROBIOLOGY Specimen Anatomical Collection Method Collection Time Receive d Time (Source) Location / / Volume Laterality Blood specimen 02/02/2014 2:07 PM 2 014 2:08 (specimen) CDT PM CDT Caitlin Owens MD LAB - BLOOD ORDERABLES Performing Organization Address City/State/ZIP Code Phon e Number [facility] [address] [place] [address] [facility] MICROBIOLOGY Hepatitis B surface antigen (02/02/2014 2:07 PM CDT) [facility] Method Time Signature Hep B Surface Negative NEG [facility] Agn MICROBIOLOGY Specimen Anatomical Collection Method Collection Time Receive d Time (Source) Location / / Volume Laterality Blood specimen 02/02/2014 2:07 PM 2 014 2:08 (specimen) CDT PM CDT Caitlin Owens MD LAB - BLOOD ORDERABLES Performing Organization Address City/State/ZIP Code Phon e Number [facility] [address] [place] [address] [facility] MICROBIOLOGY HIV Antigen Antibody Combo (02/02/2014 2:07 PM CDT) [facility] Signature HIV Antigen Nonreactive NR [facility] Antibody HIV-1 p24 Ag & HIV-1/HIV-2 Ab Not Detected [facility] LABS Specimen Anatomical Collection Method Collection Time Receive d Time (Source) Location / / Volume Laterality Blood specimen 02/02/2014 2:07 PM 014 2:08 (specimen) CDT PM CDT Caitlin Owens MD LAB - BLOOD ORDERABLES Performing Organization Address City/[facility] Code Phon e Number [address] LABS EBV Capsid Antibody IgM (02/02/2014 2:07 PM CDT) [facility] Method Time Signature EBV Capsid <0.2 0.0 - 0.8 [facility] Antibody IgM No detectable antibody. AI [facility] LABS Specimen Anatomical Collection Method Collection Time Receive d Time (Source) Location / / Volume Laterality Blood specimen 02/02/2014 2:07 PM 014 2:08 (specimen) CDT PM CDT Caitlin Owens MD LAB - BLOOD ORDERABLES Performing Organization Address [facility] Code Phon e Number [address] LABS (ABNORMAL) EBV Capsid Antibody IgG (02/02/2014 2:07 PM CDT) [facility] Method Time Signature EBV Capsid >8.0 0.0 - 0.8 [facility] Antibody IgG Positive, suggests recent or past exposure [facility] [place] LABS Specimen Anatomical Collection Method Collection Time Receive d Time (Source) Location / / Volume Laterality Blood specimen 02/02/2014 2:07 PM 014 2:08 (specimen) CDT PM CDT Caitlin Owens MD LAB - BLOOD ORDERABLES Performing Organization Address City/[facility]/ZIP Code Phon e Number [address] LABS CMV antibody IgM (02/02/2014 2:07 PM CDT) [facility] Signature CMV Antibody <0.2 0.0 - 0.8 [facility] IgM Negative [facility] LABS Specimen Anatomical Collection Method Collection Time Receive d Time (Source) Location / / Volume Laterality Blood specimen 02/02/2014 2:07 PM 014 2:08 (specimen) CDT PM CDT Caitlin Owens MD LAB - BLOOD ORDERABLES Performing Organization Address City/[facility]/ZIP Code Phon e Number [facility] [address] [place] [address] [facility] (ABNORMAL) CMV Antibody IgG (02/02/2014 2:07 PM CDT) P athologist Signature CMV Antibody 7.8 (H) 0.0 - 0.8 [facility] IgG AI [facility] LABS Comment: Positive Specimen Anatomical Collection Method Collection Time Receive d Time (Source) Location / / Volume Laterality Blood specimen 02/02/2014 2:07 PM 014 2:08 (specimen) CDT PM CDT Caitlin Owens MD LAB - BLOOD ORDERABLES Performing Organization Address City/State/ZIP Code Phon e Number [facility] [address] [place] [address] [facility] (ABNORMAL) Comprehensive metabolic panel (02/02/2014 2:07 PM CDT) Patholo gist Method Time Signature Sodium 141 133 - 144 [facility] mmol/L [facility] LABS Potassium 4.2 3.4 - 5.3 [facility] mmol/L [facility] LABS Chloride 101 94 - 109 [facility] mmol/L [facility] LABS Carbon Dioxide 26 20 - 32 [facility] mmol/L [facility] LABS Anion Gap 13 6 - 17 [facility] mmol/L [facility] LABS Glucose 112 (H) 60 - 99 [facility] mg/dL [facility] LABS Urea Nitrogen 42 (H) 7 - 30 [facility] mg/dL [facility] LABS Creatinine 6.03 (H) 0.66 - [facility] 1.25 UNIVERSITY mg/dL CAMPUS LABS GFR Estimate 9 (L) >60 [facility] mL/min/1. [address] LABS GFR Estimate If 11 (L) >60 [facility] Black mL/min/1. [address] LABS Calcium 9.9 8.5 - [facility] 10.4 UNIVERSITY mg/dL CAMPUS LABS Bilirubin Total 0.7 0.2 - 1.3 [facility] mg/dL [facility] LABS Albumin 4.2 3.3 - 4.9 [facility] g/dL [facility] LABS Protein Total 7.5 6.8 - 8.8 [facility] g/dL [facility] LABS Alkaline 88 40 - 150 [facility] Phosphatase U/L [facility] LABS ALT 33 0 - 70 [facility] U/L [facility]S AST 18 0 - 45 [facility] U/L [facility] LABS Specimen Anatomical Collection Method Collection Time Receive d Time (Source) Location / / Volume Laterality Blood specimen 02/02/2014 2:07 PM 014 2:08 (specimen) CDT PM CDT Caitlin Owens MD LAB - BLOOD ORDERABLES Performing Organization Address City/State/ZIP Code Phon e Number [id number] [place] [address] LABS (ABNORMAL) CBC with platelets differential (02/02/2014 2:07 PM CDT) [facility] gist Method Time Signature WBC 6.3 4.0 - [facility] 11.0 UN[facility]ITY 10e9/L [place] [facility] RBC Count 3.71 (L) 4.4 - 5.9 [facility] 10e12/L [facility] LABS Hemoglobin 11.5 (L) 13.3 - [facility] 17.7 g/dL [facility] LABS Hematocrit 33.7 (L) 40.0 - [facility] 53.0 % [facility] LABS MCV 91 78 - [address] [facility] [address] [facility] LABS MCH 31.0 26.5 - [facility] 33.[address] [facility] LABS MCHC 34.1 31.5 - [facility] 36.5 g/dL [facility] LABS RDW 14.0 10.0 - [facility] 15.0 % [facility] LABS Platelet Count 110 (L) 150 - 450 [facility] 10e9/L [facility] LABS Diff Method Automated [facility] Method [facility] LABS % Neutrophils 52.4 % [facility] % Lymphocytes 32.1 % [facility] % Monocytes 7.9 % [facility] % Eosinophils 7.1 % [facility] % Basophils 0.3 % [facility] % Immature 0.2 % [facility] Granulocytes [facility] LABS Absolute 3.3 1.6 - 8.3 [facility] Neutrophil 10e9/L [facility] LABS Absolute 2.0 0.8 - 5.3 [facility] Lymphocytes 10e9/L [facility] LABS Absolute 0.5 0.0 - 1.3 [facility] Monocytes 10e9/L [facility] LABS Absolute 0.5 0.0 - 0.7 [facility] Eosinophils 10e9/L [facility] LABS Absolute 0.0 0.0 - 0.2 [facility] Basophils 10e9/L [facility] LABS Abs Immature 0.0 0 - 0.4 [facility] Granulocytes 10e9/L [facility] LABS Specimen Anatomical Collection Method Collection Time Receive d Time (Source) Location / / Volume Laterality Blood specimen 02/02/2014 2:07 PM 014 2:08 (specimen) CDT PM CDT Caitlin Owens MD LAB - BLOOD ORDERABLES Performing Organization Address City/[facility]/ZIP Code Phon e Number [address] LABS Creatinine urine calculation only (02/02/2014 2:00 PM CDT) P athologist Signature Creatinine 88 mg/dL [facility] LABS Specimen Anatomical Collection Method Collection Time Receive d Time (Source) Location / / Volume Laterality 02/02/2014 2:00 PM 4 2:12 CDT PM CDT Caitlin Owens MD LAB - URINE ORDERABLES Performing Organization Address City/[facility] Code Phon e Number [address] LABS (ABNORMAL) Urine culture (02/02/2014 2:00 PM CDT) Component Value Ref Test Analysis Performed At [facility] [employer] Method Time Signature Specimen Midstream Urine [facility] Description [facility] LABS Special Specimen received [facility] Requests in preservative MICROBIOLOGY Culture Micro <10,000 colonies/mL Gram pos itive cocci No further identification Susceptibility [facility] testing not routinely done NM CROBIOLOGY <10,000 colonies/mL Strain 2 Gram positive [...] MICRO GENERAL ORDERABL ES Performing Organization Address City/[facility]/ZIP Code Phon e Number [address] LABS [facility] MICROBIOLOGY (ABNORMAL) Protein random urine (02/02/2014 2:00 PM CDT) [facility] gist Method Time Signature Protein Random 1.89 g/L [facility] Urine [facility] LABS Protein Total 2.15 (H) 0 - 0.2 [facility] Urine g/gr g/g Cr [place] [facility] LABS Specimen Anatomical Collection Method Collection Time Receive d Time (Source) Location / / Volume Laterality Urine specimen URINE SPECIMEN 02/02/2014 2:00 PM 02/02 2:12 (specimen) OBTAINED BY CLEAN CDT PM CDT CATCH PROCEDURE / Unknown Caitlin Owens MD LAB - URINE ORDERABLES Performing Organization Address City/State/ZIP Code Phon e Number [facility] [address] LABS (ABNORMAL) Routine UA with microscopic (02/02/2014 2:00 PM CDT) [facility] Method Time Signature Color Urine Light Yellow [facility] Appearance Urine Clear [facility] Glucose Urine 70 (A) NEG mg/dL [facility] LABS Bilirubin Urine Negative NEG [facility] LABS Ketones Urine Negative NEG mg/dL [facility] UNIVERSITY [place] LABS Specific [place] 1.008 1.003 - [facility] Urine 1.035 [place] [facility] Blood U[facility] Negative [facility] pH Urine 8.0 (H) 5.0 - 7.0 [facility] pH [facility] Protein Albumin 100 (A) NEG mg/dL [facility] Urine [facility] Urobilinogen Normal 0.0 - 2.0 [facility] mg/dL mg/dL [facility] Nitrite Urine Negative NEG [facility] LABS Leukocyte Negative NEG [facility] Esterase Urine [facility] Source Clean catch [facility] urine [facility] LABS WBC Urine 1 0 [...] Phon e Number [facility] [address] [place], [place] [id number] [place] [address] LABS (ABNORMAL) Glucose by meter (02/02/2014 1:59 PM CDT) P athologist Signature Glucose 115 (H) 60 - 99 POINT OF CARE mg/dL TEST, GLUCOSE Specimen Anatomical Collection Method Collection Time Receive d Time (Source) Location / / Volume Laterality 02/02/2014 1:59 PM 4 2:05 CDT PM CDT Migel Merchant MD LAB - BEAKER POCT Performing Organization Address City/[facility]/ZIP Code Phon e Number [facility] POINT OF CARE TEST, GLUCOSE POINT OF CARE TEST, GLUCOSE EKG 12-lead, tracing only (02/02/2014 1:58 PM CDT) Patholo gist Method Time Signature Interpretation ECG Click View RADIOLOGY Image link RESULTS to view waveform and result Specimen (Source) Anatomical Collection Method Collection Time Re ceived Time Location / / Volume Laterality 02/02/2014 1:58 PM CDT Caitlin Owens MD ECG ORDERABLES Performing Organization Address City/[facility] Code Phon e Number RADIOLOGY RESULTS documented [...] HOURS PRN, mild pain, fever, Starting on Sun 15/14 at 1011, Maximum acetaminophen dose from all [...] dose, When verbally ordered by the prescriber. [place] throat with 1-4 sprays 5 minutes prior [...] Intravenous, 2 TIMES DAILY, First dose on 02/03/14 at 0800 Given 02/04/2014 8:09 PM CDT [...] 11:15 PM CDT 0.4 mg HYDROmorphone (DILAUDID) COAL DIGGER 1 mg/mL Shift Total 02/03/2014 6:24 AM CDT COAL DIGGER dose (mg): 0.1, Max COAL DIGGER dose (mg): 0.2, Lockout Interval (min): 10 minutes, COAL DIGGER Continuous Rate (mg/hr): CONTINUOUS RATE IS NOT [...] 0818, For 1 dose, JAKE DE SANTIAGO: kikiinelynda override metoprolol (LOPRESSOR) injection 5 mg Given [...] DAILY, First dose (after last modification) on 02/04/14 at 2000, For Adults, Hold if [...] PRN, moderate to severe pain, Starting on 02/03/14 at 0942 oxyCODONE (ROXICODONE) immediate release tablet Given 02/06/2014 7:55 PM CDT 5 mg 5 mg 5 mg, Oral, EVERY 4 HOURS PRN, moderate to severe pain, Starting on Tu02/05/14 at 0750 Given 02/06/2014 1:45 PM CDT [...] 5 mg, Oral, ONCE AT 6PM, On 02/05/14 at 1800, For 1 dose warfarin (COUMADIN) [...] dose, When verbally ordered by the prescriber. [place] throat with 1-4 sprays 5 minutes prior to procedure in the [facility] procedure room , Cardiac Intra-procedure clotrimazole (MYCELEX) lozenge 10 mg 1205 (Given - Pro vider: Ganesh Covarrubias RN)1335 (Given - Provider: Ganesh Covarrubias RN)1952 (Given - Provider: Annmarie Colby RN) 0837 (Given - Provider: Lashaun Braswell RN)1347 (Given - Provider: Lashaun Braswell RN)2004 (Given - Provider: Annmarie Colby, BOGDAN) 0809 (Given - Provider: Amanda Hernandez, RN)1400 (Canceled Entry - Provider: Orders Generic Provider [...] Lashaun Braswell RN) 20 mg, Intravenous, ONCE, [facility] 02/07/14 at 1100, For 1 dose [...] BOGDAN) 0836 (Given - Provider: Lashaun Braswell RN)2004 (Given - Provider: Annmarie Colby RN) 0809 (Given - Provider: Amanda Hernandez, BOGDAN) 25 mg, Oral, 2 TIMES DAILY, First dose o n 02/04/14 at 2000, For Adults, Hold if HR < 60 or SBP <100. mycophenolate (CELLCEPT-BRAND NAME) capsule 1,000 mg 1 204 (Given - Provider: Ganesh Covarrubias RN)1758 (Given - Provider: Lashaun Braswell, RN) 0838 (Given - Provider: Lashaun Braswell, BOGDAN)1820 (Given - Provider: Lashaun Braswell, BOGDAN) 0808 [...] dose on Tue02/03/14 at 0800, DO NOT CR US. polyethylene glycol (MIRALAX/GLYCOLAX) packet 17 g (CA NCELED) 1204 (Given - Provider: Ganseh Covarrubias RN) 0837 (Given - Provider: Lashaun [...] BOGDAN) 0836 (Given - Provider: Lashaun Braswell, BOGDAN)1999 [...] (CANCELED) 01 00 (Not Given - Provider: Ashutosh Hodgson RN - Reason: IV Infusing)1207 (Given - Provider: Ganesh Covarrubias RN)1622 (Given - Provider: Lashaun Braswell, RN)1656 (Given - Provider: Odalis Seaman)2209 (Given - [...] (Not Gi isael - Provider: Lynne Gatica [facility] - Reason: Other - Comment: [...] (CANCELED) 030 0 (New Bag - Provider: Ashutosh Hodgson, BOGDAN)0610 (Stopped - Provider: Ashutosh Hodgson, RN) Intravenous, CONTINUOUS, Starting Tue at 1115, Starting [...] 5 mg 0 015 (Given - Provider: Ashutosh Hodgson, RN)1345 (Given - Provider: Ganesh Covarrubias, BOGDAN)1955 (Given [...] draw. documented in this encounter Care Teams Deli Cook Relationship Specialty Start Date End Date Momo Forbes PCP - General Family Practice 01/02/14 [facility] [address] [place] [phone] Ingrid Santana, RN Registered Nurse Transplant 02/10/12 10/01/15 documented as of this encounter
--- OUTSIDE RECORDS SUMMARY | 2022-04-29 12:24 | XMS_ITS | Encounter Summary ---
:1950 Author Organization [place] Address [address] [place] [address]. [place] [address] Care Team Providers Name Role Phone Ingrid Santana RN Unavailable Momo Forbes Primary Care Provider Encounter Details Date Type Department Care Team Description 02/02/2014 Abstract The Transplant [facility] 2nd Floor, Clinic [address] [phone] Social History Tobacco Use [...] on filedocumented in this encounter Care Teams Firmware Manager Relationship Specialty Start Date End Date Momo Forbes PCP - General Family Practice 01/02/14 [facility] [address] [place] [address] Ingrid Santana RN Registered Nurse Transplant 02/10/12 10/01/15 documented as of this encounter
--- OUTSIDE RECORDS SUMMARY | 2022-04-29 12:24 | XMS_ITS | Encounter Summary ---
:1950 Author Organization [place] Address [facility] [place] [address] Care Team Providers Name Role Phone Ingrid Santana RN Unavailable Momo Forbes Primary Care Provider Encounter Details Date Type Department Care Team Description 02/02/2014 Results Only LABORATORY RESULTS Migel Merchant MD [address] [place] [id number] (Wo rk) Social History Tobacco Use [...] T/B Crossmatch Allo (02/02/2014 6:51 PM CDT) [facility] Method Time Signature Crossmatch Donor:[id number], ?Crossmatch Date:02/02/2014 HISTOTRAC Result (Note) Serum Date [...] - IMMUNOLOGY ORDERABLES Performing Organization Address City/State/ZIP [facility] Phon e Number [facility] Immunology/Histocompatabil [place], [place] [address] ity [facility] [address], Room 3-580 HISTOTRAC documented in this encounter Visit Diagnoses Not on filedocumented in this encounter Care Teams Sponsorship Manager Relationship Specialty Start Date End Date Momo Forbes PCP - General Family Practice 01/02/14 [facility] [address] [place] [address] Ingrid Santana, RN Registered Nurse Transplant 02/10/12 10/01/15 documented as of this encounter
--- OUTSIDE RECORDS SUMMARY | 2022-04-29 12:24 | XMS_ITS | Encounter Summary ---
:1950 Author Organization [place] Address [facility] [facility] [place] [address] Care Team Providers Name Role Phone Ingrid Santana RN Unavailable Momo Forbes Primary Care Provider Encounter Details Date Type Department Care Team Description 02/02/2014 Results Only LABORATORY RESULTS Migel Merchant MD [address] [place] [phone] (Wo rk) Social History Tobacco Use [...] T/B Crossmatch Auto (02/02/2014 6:51 PM CDT) [facility] Method Time Signature Crossmatch Donor:ELINOR GUTHRIE [...] Phon e Number [facility] Immunology/Histocompatabil [place], [place] [address] [facility] [address], Room 3-580 HISTOTRAC documented in this encounter Visit Diagnoses Not on filedocumented in this encounter Care Teams Computing Services Director Relationship Specialty Start Date End Date Momo Forbes PCP - General Family Practice 01/02/14 [facility] [address] [place] [address] Ingrid Santana, RN Registered Nurse Transplant 02/10/12 10/01/15 documented as of this encounter
--- OUTSIDE RECORDS SUMMARY | 2022-04-29 12:24 | XMS_ITS | Encounter Summary ---
:1950 Author Organization [place] Address [address] [place] [address] Care Team Providers Name Role Phone Ingrid Santana RN Unavailable Momo Forbes Primary Care Provider Encounter Details Date Type Department Care Team Description 02/02/2014 Results Only LABORATORY RESULTS Migel Merchnat MD [address] [place] [address] [address] [place] [address] (Wo rk) Social History Tobacco [...] I Single Antigen (02/02/2014 6:51 PM CDT) [facility] Method Time Signature SA1 Test SA [...] Phon e Number [facility] Immunology/Histocompatabil [place], [place] [address] [facility] [address], Room 3-580 HISTOTRAC documented in this encounter Visit Diagnoses Not on filedocumented in this encounter Care Teams Director Of Training Relationship Specialty Start Date End Date Momo Forbes PCP - General Family Practice 01/02/14 [facility] [address] [place] [address] Ingrid Santana, RN Registered Nurse Transplant 02/10/12 10/01/15 documented as of this encounter
--- OUTSIDE RECORDS SUMMARY | 2022-04-29 12:24 | XMS_ITS | Encounter Summary ---
:1950 Author Organization [place] Address [facility] [place] [address] Care Team Providers Name Role Phone Ingrid Santana RN Unavailable Momo Forbes Primary Care Provider Reason for Visit Reason Comments Transplant Donor culture results Encounter Details Date Type Department Care Team Description 02/04/2014 Documentation Only The Transplant Gladis Y[facility], Transplant (Donor 2nd Floor, Clinic 2A RN culture results) [address] [place] [phone] Social History Tobacco Use Types Packs/Day Years [...] and urine cultures have been uploaded into [employer]. Notification sent to Dr. Rust and Dr. Hernandes. documented in this encounter Plan of Treatment Not on filedocumented as of this encounter Visit Diagnoses Not on filedocumented in this encounter Care Teams Painter Relationship Specialty Start Date End Date Momo Forbes PCP - General Family Practice 01/02/14 [facility] [address] [place] [address] Ingrid Santana, RN Registered Nurse Transplant 02/10/12 10/01/15 documented as of this encounter
--- OUTSIDE RECORDS SUMMARY | 2022-04-29 12:24 | XMS_ITS | Encounter Summary ---
:1950 Author Organization [place] Address Formerly [facility], [facility] [place] [address] Care Team Providers Name Role Phone Ingrid Santana RN Unavailable Momo Forbes Primary Care Provider Reason for Visit Reason Comments Transplant Encounter Details Date Type Department Care Team Description 02/02/2014 Orders Only Transplant Surgery Abraham, End stage renal failure Clinic [facility] Mae on dialysis (H) 2nd Floor, Clinic 2A (Primary Dx) [address] [id number] Social History Tobacco Use Types Packs/Day Years [...] disease documented in this encounter Care Teams Customer Success Director Relationship Specialty Start Date End Date Momo Forbes PCP - General Family Practice 01/02/14 [facility] [address] [place] [address] Ingrid Santana, RN Registered Nurse Transplant 02/10/12 10/01/15 documented as of this encounter
--- OUTSIDE RECORDS SUMMARY | 2022-04-29 12:24 | XMS_ITS | Encounter Summary ---
:1950 Author Organization [place] Address [address] [facility] [place] [address] Care Team Providers Name Role Phone Ingrid Santana RN Unavailable Momo Forbes Primary Care Provider Encounter Details Date Type Department Care Team Description 02/02/2014 Results Only LABORATORY RESULTS Migel Merchant MD [address] [place] [address] [address] [place] [address] (Wo rk) Social History Tobacco [...] II Single Antigen (02/02/2014 6:51 PM CDT) [facility] Method Time Signature SA2 Test SA [...] e Number [facility] HLA LABORATORY Immunology/Histocompatabil [place], [place] [address] ity [facility] [address], Room 3-580 HISTOTRAC documented in this encounter Visit Diagnoses Not on filedocumented in this encounter Care Teams Copy Center Associate Relationship Specialty Start Date End Date Momo Forbes PCP - General Family Practice 01/02/14 [facility] [address] [place] [address] Ingrid Santana, RN Registered Nurse Transplant 02/10/12 10/01/15 documented as of this encounter
--- OUTSIDE RECORDS SUMMARY | 2022-04-29 12:25 | XMS_ITS | Encounter Summary ---
:1950 Author Organization [place] Address [address] [place] [address]. [place] [address] Care Team Providers Name Role Phone Ingrid Santana RN Unavailable Momo Forbes Primary Care Provider Reason for Visit Auth/Cert - Closed Specialty Diagnoses / Procedures Referred By Contact Refer red To Contact Med Surg Diagnoses end stage renal disease dialysis End stage renal failure on dialysis Renal Failure Uu U7a Procedures [facility] [address] [place] [address] Phone: Referral ID Status Reason Start Date Expiration Date Visits Requ ested Visits Authorized [id number] Closed 02/04/2014 08/03/2014 1 1 Encounter Details Date Type Department Care Team Description 02/02/2014 Anesthesia Event [facility] Joseph Ivey MD XXX RESIGNED XXX [address] [place], [place] [address] PeriOp Services Leigh Ann Blank MD [address] [facility] [address] [place] [address] [address] [place] [address] Anesthesia Record Procedure Summary Procedure [...] Hand Inez Mckeon Sara E RN Saima, MANAGER CALL CENTER RETIRED ETT 02/02/14; 1753; Airway 02/02/14 1753 [...] Take 1 tablet by mouth daily. B jhgulga-I-ikqep acid (NEPHROCAPS) 1 MG capsule Take 1 [...] benefits and alternatives discussed with: patient or national account representative. Possibility of blood products discussed. I [...] plan were discussed with patient/family or family national account representative. All questions were answered and there was agreement to proceed. History & Physical Review Leigh Ann Blank MD Anesthesiology [id number] [phone] 2:47 PM February 02, 2014 Diego Guthrie was seen and examined and the medical history was reviewed with him. The anesthetic plan was discussed, risks were explained and questions were answered. He agrees to proceed as discussed. I have reviewed this note and agree with the assessment and plan. Joseph Ivey M.D. Staff Anesthesiologist [phone] 02/02/2014 4:48 PM documented in this encounter [...] Date/Time Associated Diagnosis Comme nts [facility] AN MA PA CENTRAL Routine 02/02/2014 6:19 PM Re [...] passed easily into [facility]. Hyunnarm Nazia DO MA ANESTHESIA documented in this encounter Visit Diagnoses [...] Intra-op documented in this encounter Care Teams Scheduling Coordinator Relationship Specialty Start Date End Date Momo Forbes PCP - General Family Practice 01/02/14 [facility] [address] [place] [address] Ingrid Santana, RN Registered Nurse Transplant 02/10/12 10/01/15 documented as of this encounter
--- OUTSIDE RECORDS SUMMARY | 2022-04-29 12:25 | XMS_ITS | Encounter Summary ---
:1950 Author Organization [facility] Address [address] [place] [address] Care Team Providers Name Role Phone Ingrid Santana RN Unavailable Momo Forbes Primary Care Provider Reason for Visit Auth/Cert - Closed Specialty Diagnoses / Procedures Referred By Contact Refer red To Contact Med Surg Diagnoses end stage renal disease dialysis End stage renal failure on dialysis Renal Failure Uu U7a Procedures TRANSPLANT KIDNEY RECIPIENT DONOR [address] [place] [address] Phone: Referral ID Status Reason Start Date Expiration Date Visits Requ ested Visits Authorized [id number] Closed 02/04/2014 08/03/2014 1 1 Encounter Details Date Type Department Care Team Description 02/02/2014 Surgery [facility] Migel Merchant , Kidney Transplant , PeriOp Services ureteral stent [address] [place] [address] [place] [address] [place], [place] [address] (Wo rk) Surgery Details Date/Time Status Location [...] Physician Discharge Summary Patient ID: Diego Guthrie [id number] 63 year old 1950 Admit date: 02/02/2014 [...] Take 1 tablet by mouth daily. B egmooiu-D-tchyj acid (NEPHROCAPS) 1 MG capsule Take 1 [...] of these appointments you will meetwith a restaurant delivery driver and meet your clinical education coordinator. Your nurse will also be in communication with your surgeon and restaurant delivery driver as needed. The direct number to the [facility] is [phone]. In the [facility] [...] the hospital. This will be located in [facility] transplant surgery clinic on the second floor.Your transplant surgeon is: Dr. Merchant. You have a ureteral stent in place which needs to be removed in 4-6 weeks. If a sports editor does not contact you for this, please contact your clinical education coordinator. If you have modesta in place, they will be removed in 3 weeks after operation. Notify your coordinator if you have pain over your kidney, fever greater than 101.5F, or decreased urine output. Notify your coordinator immediately if you are ever unable to take your immunosuppressive medications for any reason. Packing Machine Operator [phone] Diet recommendations post-transplant: Heart healthy dietary habits airport screener (low saturated/trans fat, low sodium). High protein diet x 8 weeks. Practice food safety precautions - no fish/seafood x 3 weeks. Discharge nurse--please fax discharge orders to [facility] and to his PCP with INR level and warfarin doses --done 6 bmp documented in this encounter Medications at [...] >2. He can be seen by any topology professor in the outpatient setting for coordination. Continue metoprolol 25 po bid until he is r e-evaluated. We did attempt inpatient REFUGIO guided cardioversion, but the patient developed significant bleeding while on heparin. José Miguel Alvarez M.D. Fur Comber Joseph Quintana MD - 02/08/2014 12:35 PM [...] Dr. Quintana. Sina Robison MD Nephrology Fellow [phone] Attestation: This patient has been seen and [...] Ramires RN - 02/07/2014 2:25 PM CDT City Auditor D: Diego Guthrie 63 year old male POD #5 s/p DDKT for ESRD 2/[address] Diaz note today. Per Dr Diaz, pt will most likely be ready for d/c to home tomorrow and will return to [facility] for 5 days at 0700. Pt [...] him. Pt does not know where the [facility] or transplant clinic is, I told him and he replied I will find it. Pt does not care which [facility] agency will follow him--There are only 2 to choose from, [phone] --I called and left a message with Estrella Fletcher and I fax'd his records tothem--pt will need start of care approx Thursday 02/15. Pt is new on warfarin and I called his PCP's office and they have INR nurses Tuesday-Tuesday their fax # is [phone] (when [facility] visits are completed --pt will call main clinic # to schedule INR draws). 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 I verified his address and phone #(is his cell) on the facesheet. Pt has not met his OP wound care technician: Leandro Kahn, yet--I sent Leandro an in Fast [employer] message today-with plan. A: possible d/c to home Tuesday P: see above-will follow and will call [facility] to confirm they can accept him. Joseph [...] Dr. Quintana. Sina Robison MD Nephrology Fellow [phone] Attestation: This patient has been seen and [...] assistance Medical Decision Making: Medium Subsequent visit 20127 (moderate level decision making) PATO/Fellow/Resident Provider: Adeline [...] Rodriguez MD - 02/06/2014 4:25 PM CDT [facility] Cardiology Progress Note I have seen and [...] Dr. Quintana. Sina Robison MD Nephrology Fellow [phone] Attestation: This patient has been seen and [...] focal deficit No pronator drift. Tremorabsent. Line: [facility] Data: CMP Recent Labs Lab 02/06/14 [...] Dr. Quintana. Sina Robison MD Nephrology Fellow [phone] Attestation: This patient has been seen and [...] Kahn RN - 02/05/2014 4:47 PM CDT LOOM CHANGER NOTE I met with the patient and his yesterday at [facility] PCU-6B (telemetry unit) to discuss transition from inpatient to outpatient care following kidney translantation. 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 He has slow graft function; [...] the plan for daily visits to the [facility] for 5 days after discharge followed [...] meet with the patient again in the [facility] following discharge from [facility]. Joseph Rodriguez MD - 02/05/2014 11:16 AM CDT [facility] Cardiology Progress Note I have seen and [...] plan for REFUGIO cardioversion tomorrow, NPO at [place] (orders placed) -- continue heparin and initiate [...] on 02/02/2014. Pt lives alone in [facility] [place] though reports that his girlfriend in in the process of moving in with him. Pt girlfriend, Tete, will be present when pt returns home but she works multimedia manager. Pt was on dialysis for 2 1/2 years prior to transplant. Pt works independently but reports that he currently has no income coming in. Pt has primary insurancethrough Medicare and Secondary insurance through [employer]. Pt has no co-pays for his immunosuppressants and a high out of pocket cost for Valcyte, SW to look into grants for pt for Valcyte. I: Met with pt to introduce this communications writer and explain sw role and services available while inpatient in the hospital. Asked if pt had any questions or concerns and completed an assessment of psychosocialneeds post transplant. Provided education about expectations and requirements post discharge like fol low up in the [facility]. Pt is unsure yet if he [...] arise prior to discharge. CECY Kearns, SOCIAL WORKER Indu Calixto MD - 02/05/2014 1:50 AM [...] Adds Type of Visit Initial PT Evaluation Cork Cutter Cork Cutter Present no Language Syrian Living Environment (R) Lives With alone Living Arrangements ([facility]) Home Accessibility no concerns Number of [...] when pt is available. CECY Kearns, SOCIAL WORKER [phone] phone [phone] pager Joseph Quintana MD - 02/04/2014 11:51 [...] Dr. Quintana. Sina Robison MD Nephrology Fellow [phone] Attestation: This patient has been seen and [...] for this basename: PTHI, in the last 91797 hours IRON STUDIES No results found for this basename: IRON, FEB, IRONSAT, THEE, in the last 01410 hours Imaging: All imaging studies reviewed by [...] for continuous tele monitoring Medical Decision Making:medium PTAO/Fellow/Resident Provider: Adeline Diaz Faculty: [facility] Transplant History: [...] or equal to 12.0 mlU/mL. Adeline Diaz [phone] Attestation: The patient has been seen and [...] donor kidney transplant, with stent on 02/02/14. BATTERY CONTAINER INSPECTOR donor. Graft function:uncertain, Cr slightly up. Slow [...] . Medical Decision Making: Medium Subsequent visit 22199 (moderate level decision making) PATO/Fellow/Resident Provider: Caitlin [...] note and orders. Migel Merchant MD, PhD social media campaign manager Abdominal Organ Transplantation Carmelita Rosario, BOGDAN - 02/03/2014 9:38 AM CDT Patient removed from the UNOS waitlist after donor kidney transplant. UNOS ID is [id number]. Rafaela Cardona - 02/03/2014 9:17 AM CDT [...] followed general diet. Patient reports good appetite/intake MOBILE DESIGNER, no nutrition issues/concnerns. CURRENT NUTRITION ORDERS - [...] DDKT ASSESSED NUTRITION NEEDS: Estimated Energy Needs: 7791-3463+ kcals (25-30+ Kcal/Kg) Justification: maintenance post-transplant Estimated [...] (6- 8 weeks). Rec follow heart-healthy diet airport screener. Implementation Nutrition education: Provided instruction on post-transplant diet with discussion regarding protein sources and high protein needs in acute post-tx phase. Reviewed recommendations to follow low fat/lowsodium diet airport screener and discussed heart healthy diet tips. Discussed [...] lytes and need for diet adjustment. Rafaela Cardnoa RD, LD Weekend Coverage [phone] Jose Aguirre MD - 02/03/2014 4:57 AM [...] Doing well postoperatively. Pain: Controlled by Dilaudid DISABILITY ADVOCATE Diet: NPO tonight Volume Status: Borderline low UOP, continue MIVF, 0.9 % NS 500 cc bolus given for low UOP, CVP not accurate, systolic in 100-110 Recheck hemoglobin and potassium normal. Rest of the plan per primary team. Will continue to follow. Jose Aguirre MD PGY-1.................02/03/2014 Surgery Cross Cover Pager:[phone] documented in this encounter H&P Notes Caitlin [...] 1 tablet by mouth daily. ??? B bxivxtd-G-llitl acid (NEPHROCAPS) 1 MG capsule Take 1 [...] Transplant Fellow, Caitlin Morales MD Surgery Cross-Cover Pager:[phone] Addendum: Donor 59 yo F BATTERY CONTAINER INSPECTOR, CVA, h/o HTN, CMV+, EBV+. Kidney bx [...] note and orders. Migel Merchant MD, PhD social media campaign manager Abdominal Organ Transplantation documented in this encounter Consult Notes Joseph Rodriguez MD - 02/04/2014 11:03 AM CDTAssociated Order(s): CARDIOLOGY IP CONSULT [facility] CARDIOLOGY CONSULT SERVICE INITIAL CONSULT NOTE [...] 1 tablet by mouth daily. ??? 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 José Miguel Alvarez MD Fur Comber Pager: [phone] February 04, 2014 Kaitlynn Leon MD - 02/03/2014 9:30 AM CDT Nephrology Initial Consult February 03, 2014 Diego Guthrie Date of : 1950 Date of Admission:02/02/2014 Primary care provider: Momo Forbes Requesting physician: Migel Merchant MD ASSESSMENT AND RECOMMENDATIONS: 1. DDKT - BATTERY CONTAINER INSPECTOR -59 yo women; slow graft function-no immediate need for dialysis , but may require tomorrow if UO does not belt picker. We will monitor Induction with Thymo/Cellcept [...] h/o type 2 Dm, who received DDKT (BATTERY CONTAINER INSPECTOR) on 02/02/2014 donor kidney had severe atherosclerotic [...] ??? Cataract iol, rt/lt both eyes MEDICATIONS: MOBILE DESIGNER Meds Prior to Admission medications Medication Sig Last Dose Taking? Auth Provider Calcium Carbonate-Vitamin D (CALCIUM + D PO) Take by mouth daily. Reported, Patient lisinopril (PRINIVIL,ZESTRIL) 40 MG tablet Take 40 mg by mouth 2 times daily. Reported, Patient METOPROLOL SUCCINATE PO Take by mouth daily. Reported, Patient aspirin 81 MG tablet Take 1 tablet by mouth daily. Reported, Patient B lkdnkgc-Z-wtbgk acid (NEPHROCAPS) 1 MG capsule Take 1 [...] Intravenous Central line Once ??? HYDROmorphone Intravenous DISABILITY ADVOCATE Infusion Meds ??? 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 Alvin Diego Cardiovascular Disease Fellow [phone] Patient seen and examined by me with [...] Cullen MD, PhD Jarad Cullen MD, PhD [phone] documented in this encounter Nursing Notes Gretta Mary RN - 02/02/2014 11:[address] Owens with Transplant Surgery notified of stat lab results. Magnesium replaced. Dr. Blank with Anesthesia reviewed chest x-ray. CVC not deep enough to give accurate CVP readings, however all lumens aspirate blood well. Patient is ok to transfer to unit 6B per [facility]. documented in this encounter Miscellaneous Notes Plan of Care - Amanda Hernandez RN - 02/08/2014 3:44 PM CDT Problem: IP GENERAL POC-ADULT,OB,BEHAVIORAL FVCPM Goal: Individualization/Patient-Specific Goal (Adult,OB,Behavioral The patient and/or their community health representative will achieve their patient-specific goals related [...] Card updated. Report called to Saima in [facility]. Left facility accompanied by s.o at 1600. Plan of Care - Amanda Hernandez RN - 02/08/2014 2:13 PM CDT Problem: IP GENERAL POC-ADULT,OB,BEHAVIORAL FVCPM Goal: Individualization/Patient-Specific Goal (Adult,OB,Behavioral The patient and/or their community health representative will achieve their patient-specific goals related [...] Individualization/Patient-Specific Goal (Adult,OB,Behavioral The patient and/or their community health representative will achieve their patient-specific goals related [...] Individualization/Patient-Specific Goal (Adult,OB,Behavioral The patient and/or their community health representative will achieve their patient-specific goals related [...] Diet recommendations post-transplant: Heart healthy dietary habits airport screener (low saturated/trans fat, low sodium). High protein diet x 8 weeks. Practice food safety precautions - no fish/seafood x 3 weeks. Inez Luevano MS, RD, LD Pager [phone] Pharmacy-Immunosuppression Monitoring - Em Vasquez [facility] - 02/07/2014 9:06 AM CDT Tacrolimus Monitoring [...] will continue to follow. Em Vasquez, Pharm.D., [facility] Pager [phone] Plan of Care - Annmarie Colby RN - 02/07/2014 5:11 AM CDT Problem: IP GENERAL POC-ADULT,OB,BEHAVIORAL FVCPM Goal: Individualization/Patient-Specific Goal (Adult,OB,Behavioral The patient and/or their community health representative will achieve their patient-specific goals related [...] Individualization/Patient-Specific Goal (Adult,OB,Behavioral The patient and/or their community health representative will achieve their patient-specific goals related [...] increased fluid intake, urine color is becoming magazine grinder loader( tea color/bloody- >dark sy/tea color). Incisional pain [...] Physical Therapy Goals The patient and/or their community health representative will achieve their patient-specific goals related [...] Physical Therapy Goals The patient and/or their community health representative will achieve their patient-specific goals related [...] Individualization/Patient-Specific Goal (Adult,OB,Behavioral The patient and/or their community health representative will achieve their patient-specific goals related [...] Individualization/Patient-Specific Goal (Adult,OB,Behavioral The patient and/or their community health representative will achieve their patient-specific goals related [...] Physical Therapy Goals The patient and/or their community health representative will achieve their patient-specific goals related [...] this time. Pharmacy - Cayetano Olivera, [facility] - 02/05/2014 12:26 PM CDT Visited 02/05/2014 in hospital room prior to discharge to review medications, review discharge process and review specialty pharmacy program. Med Review: Reviewed patient's medications and medical conditions. Patient would like to use [facility] to manage all medications. Medcard: [...] Specialty Pharmacy review: Discussed the benefits of [facility] and Diego has enrolled. Also gave him supplies (blood pressure cuff, thermometer, and pill box) Other concerns: No other concerns at this time. No further questions for this pharmacist. Inez Cox, Student Pharmacist Share Holder [facility] [address] [place] [address] Cayetano Olivera, Pharmacist [facility] [phone] Pharmacy-Anticoagulation Service - Teresa Wright [facility] - 02/05/2014 11:29 AM CDT Clinical Pharmacy- [...] Individualization/Patient-Specific Goal (Adult,OB,Behavioral The patient and/or their community health representative will achieve their patient-specific goals related [...] melonie hard time making full sentences. When communications writer came on shift at 8pm patient [...] Individualization/Patient-Specific Goal (Adult,OB,Behavioral The patient and/or their community health representative will achieve their patient-specific goals related [...] Physical Therapy Goals The patient and/or their community health representative will achieve their patient-specific goals related [...] by friend. Pt transferred to chair, VSS, school lunch monitor on, oriented to room. Pharmacy-Admission Medication History - Teresa Wright, [facility] - 02/04/2014 11:54 AM CDT Admission medication history interview status for the 02/02/2014 admission is complete. See [facility] admission navigator for allergy information, prior to admission medications and immunization status. Medication history interview sources (including written lists, pill bottles, clinic record):Patient Medication history source reliability:Good Primary pharmacy:[facility] phone number: [phone] Changes made to MOBILE DESIGNER medication list (reason) Added: Vitamin D 1,000 [...] at Unknown time Yes Reported, Patient B vecaskh-Y-szxhk acid (NEPHROCAPS) 1 MG capsule Take 1 [...] Individualization/Patient-Specific Goal (Adult,OB,Behavioral The patient and/or their community health representative will achieve their patient-specific goals related [...] 45 minutes and remains in A-fib via campus monitor. Repeat EKG around 1000 showed continued [...] Physical Therapy Goals The patient and/or their community health representative will achieve their patient-specific goals related to the plan of care. The patient-specific goals include: PT 7A: HOLD for AM per RN - pt with a-fib this morning. Plan of Care - Alisson Diane RN - 02/04/2014 6:45 AM CDT Problem: IP GENERAL POC-ADULT,OB,BEHAVIORAL FVCPM Goal: Individualization/Patient-Specific Goal (Adult,OB,Behavioral The patient and/or their community health representative will achieve their patient-specific goals related [...] Individualization/Patient-Specific Goal (Adult,OB,Behavioral The patient and/or their community health representative will achieve their patient-specific goals related [...] yellow. Pharmacy-Transplant Note - Davina Schuster [facility] - 02/03/2014 4:28 PM CDT Adult Kidney [...] Individualization/Patient-Specific Goal (Adult,OB,Behavioral The patient and/or their community health representative will achieve their patient-specific goals related to the plan of care. The patient-specific goals include: 1. Pt will remain hemodynamically stable 2. Pt will have adequate urine output 3. Pt will be free of falls. RD Patient will verbalize understanding of 3 important aspects of post-transplant diet guidelines. PO intake >50% meals TID once diet adv. Report taken from [facility] on 6B; patient transferred to from 6B via wheelchair around 1500. Patientsettled into room, oriented to floor/room and call light. VS taken. Orders released. Continue ordersas written and notify MD with any concerns. Plan of Care - Sofie Christianson RN - 02/03/2014 2:59 PM CDT Problem: IP GENERAL POC-ADULT,OB,BEHAVIORAL FVCPM Goal: Plan of Care Review (Adult,OB,Behavioral) The patient and/or their community health representative will communicate an understanding of their [...] algorithm 2, 1 unit now. Pt still [id number] NC to maintain sats above 90 % [...] Individualization/Patient-Specific Goal (Adult,OB,Behavioral The patient and/or their community health representative will achieve their patient-specific goals related [...] Intermittent sharp R lower abd pain. Dilaudid DISABILITY ADVOCATE encouraged, increased to 0.2/10/1.2. R lower abd [...] 0200 made 20cc/hr, at 0300 made 30cc/hr. [place]/red tinged urine. MIVF @ 125/hr. VSS. HR 70s, BPs 100s-120s/60s. No new orders at this time. Will continue to monitor. Plan of Care - Tasia Andrade, RN - 02/03/2014 12:00 AM CDT Pt arrived to from PACU, s/p DDKT. A&O x3-4. VSS. [place]/red urine output. Small amt drainage on abd [...] Type 2 Diabetes. [facility] BATTERY CONTAINER INSPECTOR (expanded criteria donor) kidney transplant. After discussing [...] The UNOS number of the donor is [id number]. The crossmatch was done prospectively; and the [...] reconstruction. FACULTY SURGEON: Migel Merchant M.D., Ph.D. FELLOW/CERAMIC TILE SETTER SURGEON: Caitlin Owens MD fellow ANESTHESIA: None VERIFICATION: Prior to incision, I verified the donor ABO and recipient ABO. After the donor organ arrived to the operating room and prior to anastamosis, I visually verified that the donor identification, blood type, and other vital data were compatible with the recipient. FINDINGS: Donor type: BATTERY CONTAINER INSPECTOR (expanded criteria donor) Organ: kidney Graft Injury: [...] Individualization/Patient-Specific Goal (Adult,OB,Behavioral The patient and/or their community health representative will achieve their patient-specific goals related [...] Individualization/Patient-Specific Goal (Adult,OB,Behavioral The patient and/or their community health representative will achieve their patient-specific goals related [...] LARES - ROBERT POCT Performing Organization Address City/State/[facility] Code Phon e Number FV POINT [...] LARES - ROBERT POCT Performing Organization Address City/[facility]/ZIP Code Phon e Number FV POINT OF CARE TEST, GLUCOSE POINT OF CARE TEST, GLUCOSE Tacrolimus level (02/08/2014 6:42 AM CDT) Patholo gist Method Time Signature Tacrolimus Not Provided [facility] Last Dose [facility] Tacrolimus 10.0 5.0 - [facility] Level 15.0 ug/L [facility] Comment: Tacrolimus Reference Range Kidney Transplant [...] LAB - BLOOD ORDERABLES Performing Organization Address City/[facility]/ZIP Code Phon e Number [facility] [address] LABS (ABNORMAL) INR (02/08/2014 6:42 AM CDT) P athologist Signature INR 1.28 (H) 0.86 - 1.14 [facility] Specimen Anatomical Collection Method Collection Time Receive d Time (Source) Location / / Volume Laterality Blood specimen 02/08/2014 6:42 AM 014 6:43 (specimen) CDT AM CDT Omaira Chavez PA-C LAB - BLOOD ORDERABLES Performing Organization Address City/[facility]/ZIP Code Phon e Number [facility] [address] LABS (ABNORMAL) Basic metabolic panel (02/08/2014 6:42 AM CDT) Patholo gist Method Time Signature Sodium 144 133 - 144 [facility] mmol/L [facility] Potassium 3.9 3.4 - 5.3 [facility] mmol/L [facility] [facility] Chloride 110 (H) 94 - 109 [facility] mmol/L [facility] Carbon Dioxide 25 20 - 32 [facility] mmol/L [facility] Anion Gap 8 6 - 17 [facility] mmol/L [facility] Glucose 144 (H) 60 - 99 [facility] mg/dL [facility] Urea Nitrogen 66 (H) 7 - 30 [facility] mg/dL [facility] Creatinine 2.38 (H) 0.66 - [facility] 1.25 mg/dL [facility] [place] [facility] GFR Estimate 28 (L) >60 [facility] mL/min/1.7 [place] [facility]2 [facility] GFR Estimate If 34 (L) >60 [facility] Black mL/min/1.7 [place] [facility] Calcium 9.4 8.5 - 10.4 [facility] mg/dL [facility] Specimen Anatomical Collection Method Collection Time Receive d Time (Source) Location / / Volume Laterality Blood specimen 02/08/2014 6:42 AM 014 6:43 (specimen) CDT AM CDT Omaira Chavez PA-C LAB - BLOOD ORDERABLES Performing Organization Address City/State/ZIP Code Phon e Number [facility] [address] LABS Phosphorus (02/08/2014 6:42 AM CDT) P athologist Signature Phosphorus 2.5 2.5 - 4.5 [facility] mg/dL [place] [facility] Specimen Anatomical Collection Method Collection Time Receive d Time (Source) Location / / Volume Laterality Blood specimen 02/08/2014 6:42 AM 014 6:43 (specimen) CDT AM CDT Omaira Chavez PA-C LAB - BLOOD ORDERABLES Performing Organization Address City/State/ZIP Code Phon e Number [facility] [address] LABS Magnesium (02/08/2014 6:42 AM CDT) P athologist Signature Magnesium 2.2 1.6 - 2.3 [facility] mg/dL [place] [facility] Specimen Anatomical Collection Method Collection Time Receive d Time (Source) Location / / Volume Laterality Blood specimen 02/08/2014 6:42 AM 014 6:43 (specimen) CDT AM CDT Omaira Chavez PA-C LAB - BLOOD ORDERABLES Performing Organization Address City/[facility]/ZIP Code Phon e Number [facility] [address] LABS (ABNORMAL) CBC with platelets differential (02/08/2014 6:42 AM CDT) Patholo gist Method Time Signature WBC 4.8 4.0 - [facility] 11.0 [place] 10e9/L [place] [facility] RBC Count 2.56 (L) 4.4 - 5.9 [facility] 10e12/L [facility] Hemoglobin 7.8 (L) 13.3 - [facility] 17.7 g/dL [facility] Hematocrit 23.5 (L) 40.0 - [facility] 53.0 % [facility] MCV 92 78 - 100 [facility] fl [facility] MCH 30.5 26.5 - [facility] 33.0 pg [facility] MCHC 33.2 31.5 - [facility] 36.5 g/dL [facility] RDW 14.5 10.0 - [facility] 15.0 % [facility] Platelet Count 70 (L) 150 - 450 [facility] 10e9/L [facility] Diff Method Automated [facility] Method [facility] % Neutrophils 86.3 % [facility] % Lymphocytes 3.1 % [facility] % Monocytes 9.4 % [facility] % Eosinophils 1.0 % [facility] % Basophils 0.0 % [facility] % Immature 0.2 % [facility] Granulocytes [facility] Absolute 4.1 1.6 - 8.3 [facility] Neutrophil 10e9/L [facility] Absolute 0.2 (L) 0.8 - 5.3 [facility] Lymphocytes 10e9/L [facility] Absolute 0.5 0.0 - 1.3 [facility] Monocytes 10e9/L [facility] Absolute 0.1 0.0 - 0.7 [facility] Eosinophils 10e9/L [facility] Absolute 0.0 0.0 - 0.2 [facility] Basophils 10e9/L [facility] Abs Immature 0.0 0 - 0.4 [facility] Granulocytes 10e9/L [facility] Specimen Anatomical Collection Method Collection Time Receive d Time (Source) Location / / Volume Laterality Blood specimen 02/08/2014 6:42 AM 014 6:43 (specimen) CDT AM CDT Omaira Chavez PA-C LAB - BLOOD ORDERABLES Performing Organization Address City/State/ZIP Code Phon e Number [facility] [address] [place], [place] [phone] [place] [address] LABS (ABNORMAL) Glucose by meter (02/07/2014 10:18 PM CDT) P athologist Signature Glucose 233 (H) 60 - 99 POINT OF CARE mg/dL TEST, GLUCOSE Specimen Anatomical Collection Method Collection Time Receive d Time (Source) Location / / Volume Laterality 02/07/2014 10:18 02/07/2014 PM CDT 10:20 PM CDT Migel Merchant MD LAB - BEAKER POCT Performing Organization Address [facility] Phon e Number FV POINT OF [...] LAB - BEAJ POCT Performing Organization Address [facility] Phon e Number FV POINT OF [...] LAB - BEAKER POCT Performing Organization Address [facility] Phon e Number FV POINT OF [...] LAB - BEJA POCT Performing Organization Address [facility] Phon e Number FV POINT OF [...] LARES - ROBERT POCT Performing Organization Address City/[facility]/ZIP Code Phon e Number FV POINT OF CARE TEST, GLUCOSE POINT OF CARE TEST, GLUCOSE (ABNORMAL) INR (02/07/2014 4:23 AM CDT) athologist Signature INR 1.25 (H) 0.86 - 1.14 [facility] Specimen Anatomical Collection Method Collection Time Receive d Time (Source) Location / / Volume Laterality Blood specimen 02/07/2014 4:23 AM 014 4:24 (specimen) CDT AM CDT Omaira Chavez PA-C LAB - BLOOD ORDERABLES Performing Organization Address City/[facility]/ZIP Code Phon e Number [phone] [place] [address] LABS (ABNORMAL) Basic metabolic panel (02/07/2014 4:23 AM CDT) [facility] gist Method Time Signature Sodium 143 133 - 144 [facility] mmol/L [facility] Potassium 4.1 3.4 - 5.3 [facility] mmol/L [facility] Chloride 109 94 - 109 [facility] mmol/L [facility] Carbon Dioxide 24 20 - 32 [facility] mmol/L [facility] Anion Gap 10 6 - 17 [facility] mmol/L [facility] Glucose 185 (H) 60 - 99 [facility] mg/dL [facility] Urea Nitrogen 77 (H) 7 - 30 [facility] mg/dL [facility] Creatinine 3.02 (H) 0.66 - [facility] 1.25 mg/dL [facility] [place] [facility] GFR Estimate 21 (L) >60 [facility] mL/min/1.7 [place] [facility]2 [facility] GFR Estimate If 26 (L) >60 [facility] Black mL/min/1.7 [place] m2 [facility] Calcium 9.3 8.5 - 10.4 [facility] mg/dL [facility] Specimen Anatomical Collection Method Collection Time Receive d Time (Source) Location / / Volume Laterality Blood specimen 02/07/2014 4:23 AM 014 4:24 (specimen) CDT AM CDT Omaira Chavez PA-C LAB - BLOOD ORDERABLES Performing Organization Address City/State/ZIP Code Phon e Number [facility] [address] LABS Phosphorus (02/07/2014 4:23 AM CDT) P athologist Signature Phosphorus 3.5 2.5 - 4.5 [facility] mg/dL [place] [facility] Specimen Anatomical Collection Method Collection Time Receive d Time (Source) Location / / Volume Laterality Blood specimen 02/07/2014 4:23 AM 014 4:24 (specimen) CDT AM CDT Omaira Chavez PA-C LAB - BLOOD ORDERABLES Performing Organization Address City/State/ZIP Code Phon e Number [facility] [address] LABS Magnesium (02/07/2014 4:23 AM CDT) P athologist Signature Magnesium 2.1 1.6 - 2.3 [facility] mg/dL [place] [facility] Specimen Anatomical Collection Method Collection Time Receive d Time (Source) Location / / Volume Laterality Blood specimen 02/07/2014 4:23 AM 014 4:24 (specimen) CDT AM CDT Omaira Chavez PA-C LAB - BLOOD ORDERABLES Performing Organization Address City/State/ZIP Code Phon e Number [facility] [address] [place], [place] [phone] [place] [address] LABS (ABNORMAL) CBC with platelets differential (02/07/2014 4:23 AM CDT) [facility] gist Method Time Signature WBC 2.7 (L) 4.0 - [facility] 11.0 [place] 10e9/L [place] [facility] RBC Count 2.80 (L) 4.4 - 5.9 [facility] 10e12/L [facility] Hemoglobin 8.5 (L) 13.3 - [facility] 17.7 g/dL [facility] Hematocrit 25.8 (L) 40.0 - [facility] 53.0 % [facility] MCV 92 78 - 100 [facility] fl [facility] MCH 30.4 26.5 - [facility] 33.0 pg [facility] MCHC 32.9 31.5 - [facility] 36.5 g/dL [facility] RDW 14.5 10.0 - [facility] 15.0 % [facility] Platelet Count 77 (L) 150 - 450 [facility] 10e9/L [facility] Diff Method Automated [facility] Method [facility] % Neutrophils 87.5 % [facility]S % Lymphocytes 3.8 % [facility] % Monocytes 8.7 % [facility] % Eosinophils 0.0 % [facility] % Basophils 0.0 % [facility] % Immature 0.0 % [facility] Granulocytes [facility] Absolute 2.3 1.6 - 8.3 [facility] Neutrophil 10e9/L [facility] Absolute 0.1 (L) 0.8 - 5.3 [facility] Lymphocytes 10e9/L [facility] Absolute 0.2 0.0 - 1.3 [facility] Monocytes 10e9/L [facility] Absolute 0.0 0.0 - 0.7 [facility] Eosinophils 10e9/L [facility] Absolute 0.0 0.0 - 0.2 [facility] Basophils 10e9/L [facility] Abs Immature 0.0 0 - 0.4 [facility] Granulocytes 10e9/L [facility] Specimen Anatomical Collection Method Collection Time Receive d Time (Source) Location / / Volume Laterality Blood specimen 02/07/2014 4:23 AM 014 4:24 (specimen) CDT AM CDT Omaira Chavez PA-C LAB - BLOOD ORDERABLES Performing Organization Address City/State/ZIP Code Phon e Number [facility] [address] [place], [place] [phone] [place] [address] LABS (ABNORMAL) Hemoglobin A1c (02/07/2014 4:23 AM CDT) Analysis Performed At Patho logist Time Signature Hemoglobin A1C 6.1 (H) 4.3 - 6.0 [facility] Specimen Anatomical Collection Method Collection Time Receive d Time (Source) Location / / Volume Laterality Blood specimen 02/07/2014 4:23 AM 014 4:24 (specimen) CDT AM CDT Omaira Chavez PA-C LAB - BLOOD ORDERABLES Performing Organization Address City/State/ZIP Code Phon e Number [facility] [address] [place] [address] [facility] LABS (ABNORMAL) Glucose by meter (02/06/2014 10:06 PM CDT) P athologist Signature Glucose 247 (H) 60 - 99 POINT OF CARE mg/dL TEST, GLUCOSE Specimen Anatomical Collection Method Collection Time Receive d Time (Source) Location / / Volume Laterality 02/06/2014 10:06 02/06/2014 PM CDT 10:10 PM CDT Migel LARES - BEAKER POCT Performing Organization Address City/[facility]/ZIP Code Phon e Number FV [...] CDT Migel JONES POCT Performing Organization Address City/[facility]/ZIP Code Phon e Number FV [...] Hemoglobin 8.8 (L) 13.3 - 17.7 [facility] g/dL [place] [facility] Specimen Anatomical Collection Method Collection Time Receive d Time (Source) Location / / Volume Laterality Blood specimen 02/06/2014 4:59 PM 014 5:12 (specimen) CDT PM CDT Omaira Chavez PA-C LAB - BLOOD ORDERABLES Performing Organization Address City/[facility]/ZIP Code Phon e Number [facility] [address] LABS (ABNORMAL) Glucose by meter (02/06/2014 12:01 PM CDT) P athologist Signature Glucose 181 (H) 60 - 99 POINT OF CARE mg/dL TEST, GLUCOSE Specimen Anatomical Collection Method Collection Time Receive d Time (Source) Location / / Volume Laterality 02/06/2014 12:01 02/06/2014 PM CDT 12:05 PM CDT Migel LARES - ROBERT POCT Performing Organization Address City/[facility]/ZIP Code Phon e Number FV POINT OF CARE TEST, GLUCOSE POINT OF CARE TEST, GLUCOSE (ABNORMAL) Partial thromboplastin time (02/06/2014 5:57 AM CDT) P athologist Signature PTT 154 (HH) 22 - 37 sec [facility] LAB[facility] Comment: Critical Value called to and read back Whitney Poon RN AT 0642. PW Specimen Anatomical Collection Method Collection Time Receive d Time (Source) Location / / Volume Laterality 02/06/2014 5:57 AM 4 6:03 CDT AM CDT Adeline Diaz MD LAB - BLOOD ORDERABLES Performing Organization Address City/[facility]/ZIP Code Phon e Number [facility] [address] [place], [place] [phone] [place] [address] LABS Heparin Xa (10a) Level (02/06/2014 5:57 AM CDT) P athologist Signature Heparin 10A 0.92 IU/mL [facility] LABS Comment: Therapeutic Range: ?? UFH: [...] LAB - BLOOD ORDERABLES Performing Organization Address City/[facility]/ZIP Code Phon e Number [address] LABS (ABNORMAL) INR (02/06/2014 5:57 AM CDT) P athologist Signature INR 1.32 (H) 0.86 - 1.14 [facility]S Specimen Anatomical Collection Method Collection Time Receive d Time (Source) Location / / Volume Laterality Blood specimen 02/06/2014 5:57 AM 014 6:03 (specimen) CDT AM CDT Omaira Chavez PA-C LAB - BLOOD ORDERABLES Performing Organization Address City/[facility]/ZIP Code Phon e Number [address] LABS (ABNORMAL) Basic metabolic panel (02/06/2014 5:57 AM CDT) Patholo gist Method Time Signature Sodium 142 133 - 144 [facility] mmol/L [facility] Potassium 4.7 3.4 - 5.3 [facility] mmol/L [facility] Chloride 106 94 - 109 [facility] mmol/L [facility] Carbon Dioxide 28 20 - 32 [facility] mmol/L [facility] Anion Gap 8 6 - 17 [facility] mmol/L [facility] Glucose 196 (H) 60 - 99 [facility] mg/dL [facility] Urea Nitrogen 71 (H) 7 - 30 [facility] mg/dL [facility] Creatinine 3.96 (H) 0.66 - [facility] 1.25 mg/dL [facility] GFR Estimate 15 (L) >60 [facility] mL/min/1.7 [place] m2 [place] [facility] GFR Estimate If 19 (L) >60 [facility] Black mL/min/1.[address] LABS Calcium 9.4 8.5 - 10.4 [facility] mg/dL [facility] Specimen Anatomical Collection Method Collection Time Receive d Time (Source) Location / / Volume Laterality Blood specimen 02/06/2014 5:57 AM 014 6:03 (specimen) CDT AM CDT Omaira Chavez PA-C LAB - BLOOD ORDERABLES Performing Organization Address City/[facility]/ZIP Code Phon e Number [address] LABS Phosphorus (02/06/2014 5:57 AM CDT) P athologist Signature Phosphorus 4.5 2.5 - 4.5 [facility] mg/dL [place] [facility] Specimen Anatomical Collection Method Collection Time Receive d Time (Source) Location / / Volume Laterality Blood specimen 02/06/2014 5:57 AM 014 6:03 (specimen) CDT AM CDT Omaira Chavez PA-C LAB - BLOOD ORDERABLES Performing Organization Address City/State/ZIP Code Phon e Number [facility] [address] LABS Magnesium (02/06/2014 5:57 AM CDT) P athologist Signature Magnesium 1.9 1.6 - 2.3 [facility] mg/dL [place] [facility] Specimen Anatomical Collection Method Collection Time Receive d Time (Source) Location / / Volume Laterality Blood specimen 02/06/2014 5:57 AM 014 6:03 (specimen) CDT AM CDT Omaira Chavez PA-C LAB - BLOOD ORDERABLES Performing Organization Address City/State/ZIP Code Phon e Number [address] [address] [place] [facility] ([facility] CBC with platelets differential (02/06/2014 5:57 AM CDT) [facility] gist Method Time Signature WBC 5.1 4.0 - [facility] 11.0 [facility] 10[facility]9/L [facility] RBC Count 3.13 (L) 4.4 - 5.9 [facility] 10e12/L [facility] Hemoglobin 9.6 (L) 13.3 - [facility] 17.7 g/dL [facility] Hematocrit 29.0 (L) 40.0 - [facility] 53.0 % [facility] MCV 93 78 - 100 [facility] fl [facility] MCH 30.7 26.5 - [facility] 33.0 pg [facility] MCHC 33.1 31.5 - [facility] 36.5 g/dL [facility] RDW 14.5 10.0 - [facility] 15.0 % [facility] Platelet Count 85 (L) 150 - 450 [facility] 10e9/L [facility] Diff Method Automated [facility] Method [facility] % Neutrophils 86.0 % [facility] % Lymphocytes 5.1 % [facility] % Monocytes 8.7 % [facility] % Eosinophils 0.0 % [facility]S % Basophils 0.0 % [facility] % Immature 0.2 % [facility] Granulocytes [facility] Absolute 4.4 1.6 - 8.3 [facility] Neutrophil 10e9/L [facility] Absolute 0.3 (L) 0.8 - 5.3 [facility] Lymphocytes 10e9/L [facility] Absolute 0.4 0.0 - 1.3 [facility] Monocytes 10e9/L [facility] Absolute 0.0 0.0 - 0.7 [facility] Eosinophils 10e9/L [facility] Absolute 0.0 0.0 - 0.2 [facility] Basophils 10e9/L [facility] Abs Immature 0.0 0 - 0.4 [facility] Granulocytes 10e9/L [facility] Specimen Anatomical Collection Method Collection Time Receive d Time (Source) Location / / Volume Laterality Blood specimen 02/06/2014 5:57 AM 014 6:03 (specimen) CDT AM CDT Omaira Chavez PA-C LAB - BLOOD ORDERABLES Performing Organization Address [facility]/ZIP Code Phon e Number [facility] [address] LABS (ABNORMAL) Lipid panel reflex to direct LDL (02/06/2014 5:57 AM CDT) P athologist Signature Cholesterol 126 <200 mg/dL [facility] LAB[facility] Comment: LDL Cholesterol is the primary guide to therapy. The NCEP recommends further evaluation of: patients with cholesterol greater than 200 mg/dL if additional risk facto rs are present, cholesterol greater than 240 mg/dL, triglycerides greater than 1 50 mg/dL, or HDL less than 40 mg/dL. Triglycerides 100 0 - 150 mg/dL [facility] LABS HDL Cholesterol 35 (L) >40 mg/dL [facility] LABS LDL Cholesterol Calculated 71 0 - 129 mg/dL [facility] LAB[facility] Comment: LDL Cholesterol is the primary guide to therapy: LDL-cholesterol goal in high risk patients is <100 mg/dL and in very high risk patients is <70 mg/dL. VLDL-Cholesterol 20 0 - 30 mg/dL [facility] Cholesterol/HDL Ratio 3.6 0.0 - 5.0 [facility] Specimen Anatomical Collection Method Collection Time Receive d Time (Source) Location / / Volume Laterality Blood specimen 02/06/2014 5:57 AM 2 014 6:03 (specimen) CDT AM CDT Omaira Chavez PA-C LAB - BLOOD ORDERABLES Performing Organization Address City/[facility]/ZIP Code Phon e Number [facility] [address] [place] [address] [facility] LABS Tacrolimus level (02/06/2014 5:57 AM CDT) Patholo gist Method Time Signature Tacrolimus S Negative [facility] Last Dose [facility] Tacrolimus 12.7 5.0 - [facility] Level 15.0 ug/L [facility] Comment: Tacrolimus Reference Range Kidney Transplant [...] Phon e Number [facility] [address] [place] [address] [facility] LABS (ABNORMAL) Glucose by meter (02/06/2014 [...] Signature Hemoglobin 10.2 (L) 13.3 - [facility] 17.7 g/dL [place] [facility] Specimen Anatomical Collection Method Collection Time Receive d Time (Source) Location / / Volume Laterality Blood specimen 02/06/2014 1:02 AM 014 1:11 (specimen) CDT AM CDT Deysi Alicea MD LAB - BLOOD ORDERABLES Performing Organization Address City/State/ZIP Code Phon e Number [phone] [place] [address] LABS (ABNORMAL) Glucose by meter (02/05/2014 10:23 [...] CDT) athologist Signature Heparin 10A 0.64 IU/mL [facility] LABS Comment: Therapeutic Range: ?? UFH: [...] Address City/State/ZIP Code Phon e Number [address] [address] [facility] LABS (ABNORMAL) Glucose by meter (02/05/2014 6:04 PM CDT) P athologist Signature Glucose 232 (H) 60 - 99 POINT OF CARE mg/dL TEST, GLUCOSE Specimen Anatomical Collection Method Collection Time Receive d Time (Source) Location / / Volume Laterality 02/05/2014 6:04 PM 4 6:10 CDT PM CDT Migel Merchant MD LAB - BEAKER POCT Performing Organization Address [facility] Phon e Number FV POINT OF [...] LAB - BEAJ POCT Performing Organization Address City/[facility] Phon e Number FV POINT OF [...] LARES - BEAJ POCT Performing Organization Address [facility] Phon e Number FV POINT OF [...] Signature INR 1.24 (H) 0.86 - 1.14 [facility] LABS Specimen Anatomical Collection Method Collection Time Receive d Time (Source) Location / / Volume Laterality Blood specimen 02/05/2014 12:04 4 (specimen) PM CDT 12:10 PM CDT Teresa Wright [facility] LAB - BLOOD ORDERABLES Performing Organization Address City/State/ZIP Code Phon e Number [phone] [place] [address] LABS (ABNORMAL) CBC with platelets (02/05/2014 12:04 PM CDT) [facility] gist Method Time Signature WBC 7.4 4.0 - 11.0 [facility] 10e9/L [facility] RBC Count 3.31 (L) 4.4 - 5.9 [facility] 10e12/L [facility] Hemoglobin 10.3 (L) 13.3 - [facility] 17.7 g/dL [facility] Hematocrit 31.0 (L) 40.0 - [facility] 53.0 % [facility] MCV 94 78 - 100 [facility] fl [facility] MCH 31.1 26.5 - [facility] 33.0 pg [facility] MCHC 33.2 31.5 - [facility] 36.5 g/dL [facility] RDW 14.7 10.0 - [facility] 15.0 % [facility] Platelet Count 91 (L) 150 - 450 [facility] 10e9/L [facility] Specimen Anatomical Collection Method Collection Time Receive d Time (Source) Location / / Volume Laterality Blood specimen 02/05/2014 12:04 4 (specimen) PM CDT 12:10 PM CDT Omaira Chavez PA-C LAB - BLOOD ORDERABLES Performing Organization Address City/State/ZIP Code Phon e Number [facility] [address] [place] [address] [facility] LABS (ABNORMAL) Glucose by meter (02/05/2014 11:25 AM CDT) P athologist Signature Glucose 190 (H) 60 - 99 POINT OF CARE mg/dL TEST, GLUCOSE Specimen Anatomical Collection Method Collection Time Receive d Time (Source) Location / / Volume Laterality 02/05/2014 11:25 02/05/2014 AM CDT 11:30 AM CDT Migel Merchant MD LAB - BEAKER POCT Performing Organization Address City/[facility]/ZIP Code Phon e Number FV [...] LARES - BEAJ POCT Performing Organization Address City/[facility]/ZIP Code Phon e Number FV [...] Basic metabolic panel (02/05/2014 7:02 AM CDT) [facility] gist Method Time Signature Sodium 143 133 - 144 [facility] mmol/L [facility] Potassium 4.3 3.4 - 5.3 [facility] mmol/L [facility] Chloride 107 94 - 109 [facility] mmol/L [facility] Carbon Dioxide 25 20 - 32 [facility] mmol/L [facility] [place] [facility] Anion Gap 10 6 - 17 [...] Address City/State/ZIP Code Phon e Number [address] [id number] [place] [address] LABS (ABNORMAL) Phosphorus (02/05/2014 7:02 AM CDT) athologist Signature Phosphorus 5.7 (H) 2.5 - 4.5 [facility] mg/dL [facility] LABS Specimen Anatomical Collection Method Collection Time Receive d Time (Source) Location / / Volume Laterality Blood specimen 02/05/2014 7:02 AM 014 7:05 (specimen) CDT AM CDT Omaira Chavez PA-C LAB - BLOOD ORDERABLES Performing Organization Address City/[facility]/ZIP Code Phon e Number [facility] [address] [place], [place] [id number] [place] [address] LABS Magnesium (02/05/2014 7:02 AM CDT) P athologist Signature Magnesium 2.0 1.6 - 2.3 [facility] mg/dL [place] LABS Specimen Anatomical Collection Method Collection Time Receive d Time (Source) Location / / Volume Laterality Blood specimen 02/05/2014 7:02 AM 014 7:05 (specimen) CDT AM CDT Omaira Chavez PA-C LAB - BLOOD ORDERABLES Performing Organization Address City/[facility]/ZIP Code Phon e Number [facility] [address] [place] [address] [facility] LABS (ABNORMAL) CBC with platelets differential (02/05/2014 7:02 AM CDT) Patholo gist Method Time Signature WBC 8.9 4.0 - [facility] 11.0 [facility] 10e9/L [place] LABS RBC Count 3.20 (L) 4.4 - 5.9 [facility] 10e12/L [facility] LABS Hemoglobin 9.7 (L) 13.3 - [facility] 17.7 g/dL [facility] LABS Hematocrit 30.0 (L) 40.0 - [facility] 53.0 % [facility] LABS MCV 94 78 - 100 [facility] fl [facility] LABS MCH 30.3 26.5 - [facility] 33.0 pg [facility] LABS MCHC 32.3 31.5 - [facility] 36.5 g/dL [facility] LABS RDW 14.6 10.0 - [facility] 15.0 % [facility] LABS Platelet Count 96 (L) 150 - 450 [facility] 10e9/L [facility] LABS Diff Method Automated [facility] Method [facility] LABS % Neutrophils 90.2 % [facility] LABS % Lymphocytes 4.4 % [facility] LABS % Monocytes 5.2 % [facility] LABS % Eosinophils 0.0 % [facility] LABS % Basophils 0.0 % [facility] LABS % Immature 0.2 % [facility] Granulocytes [facility] [place] LABS Absolute 8.1 1.6 - 8.3 [facility] Neutrophil 10e9/L [facility] LABS Absolute 0.4 (L) 0.8 - 5.3 [facility] Lymphocytes 10e9/L [facility] LABS Absolute 0.5 0.0 - 1.3 [facility] Monocytes 10e9/L [facility] LABS Absolute 0.0 0.0 - 0.7 [facility] Eosinophils 10e9/L [facility] LABS Absolute 0.0 0.0 - 0.2 [facility] Basophils 10e9/L [facility] LABS Abs Immature 0.0 0 - 0.4 [facility] Granulocytes 10e9/L [facility] LABS Specimen Anatomical Collection Method Collection Time Receive d Time (Source) Location / / Volume Laterality Blood specimen 02/05/2014 7:02 AM 014 7:05 (specimen) CDT AM CDT Omaira Chavez PA-C LAB - BLOOD ORDERABLES Performing Organization Address City/[facility] Phon e Number [address] LABS (ABNORMAL) Parathormone intact (02/05/2014 7:02 AM CDT) Patholo gist Method Time Signature Parathyroid 362 (H) 12 - 72 [facility] Hormone Intact pg/mL [facility] LABS Specimen Anatomical Collection Method Collection Time Receive d Time (Source) Location / / Volume Laterality Blood specimen 02/05/2014 7:02 AM 014 7:05 (specimen) CDT AM CDT Sina Robison MD LAB - BLOOD ORDERABLES Performing Organization Address City/[facility]/ZIP Code Phon e Number [address] LABS (ABNORMAL) Ferritin (02/05/2014 7:02 AM CDT) P athologist Signature Ferritin 932 (H) 20 - 300 [facility] ng/mL [place] LABS Specimen Anatomical Collection Method Collection Time Receive d Time (Source) Location / / Volume Laterality Blood specimen 02/05/2014 7:02 AM 014 7:05 (specimen) CDT AM CDT Sina Robison MD LAB - BLOOD ORDERABLES Performing Organization Address City/[facility]/ZIP Code Phon e Number [facility] [address] [place] [address] [facility] LABS (ABNORMAL) Iron and iron binding capacity (02/05/2014 7:02 AM CDT) Analysis Performed At Patho logist Time Signature Iron 119 35 - 180 [facility] ug/dL [facility] LABS Iron Binding 207 (L) 240 - 430 [facility] Cap ug/dL [facility] LABS Iron Saturation 58 (H) 15 - 46 % [facility] Index [facility] LABS Specimen Anatomical Collection Method Collection Time Receive d Time (Source) Location / / Volume Laterality Blood specimen 02/05/2014 7:02 AM 014 7:05 (specimen) CDT AM CDT Sina Robison MD LAB - BLOOD ORDERABLES Performing Organization Address City/[facility]/ZIP Code Phon e Number [facility] [address] [place] [address] [facility] LABS (ABNORMAL) Glucose by meter (02/05/2014 6:59 AM CDT) athologist Signature Glucose 123 (H) 60 - 99 POINT OF CARE mg/dL TEST, GLUCOSE Specimen Anatomical Collection Method Collection Time Receive d Time (Source) Location / / Volume Laterality 02/05/2014 6:59 AM 4 7:05 CDT AM CDT Migel LARES - BEAJ POCT Performing Organization Address City/[facility]/ZIP Code Phon e Number FV [...] LARES - BEAJ POCT Performing Organization Address City/[facility]/ZIP Code Phon e Number FV [...] LAB - BEAKER POCT Performing Organization Address [facility] Phon e Number FV POINT OF [...] LAB - BEAJ POCT Performing Organization Address [facility] Phon e Number FV POINT OF [...] LAB - BEAJ POCT Performing Organization Address [facility] Phon e Number FV POINT OF [...] LAB - BEAJ POCT Performing Organization Address [facility] Phon e Number FV POINT OF [...] LAB - ROBERT POCT Performing Organization Address [facility] Phon e Number FV POINT OF [...] LARES - ROBERT POCT Performing Organization Address [facility] Phon e Number FV POINT OF CARE TEST, GLUCOSE POINT OF CARE TEST, GLUCOSE EKG 12-lead, complete (02/04/2014 11:09 PM CDT) [facility] gist Method Time Signature Interpretation ECG Click View RADIOLOGY Image link RESULTS to view waveform and result Specimen (Source) Anatomical Collection Method Collection Time Re ceived Time Location / / Volume Laterality 02/04/2014 11:09 PM CDT Chemo aCrr MD ECG ORDERABLES Performing Organization Address [facility] Phon e Number RADIOLOGY RESULTS (ABNORMAL) Glucose by meter (02/04/2014 10:56 PM CDT) P athologist Signature Glucose 161 (H) 60 - 99 POINT OF CARE mg/dL TEST, GLUCOSE Specimen Anatomical Collection Method Collection Time Receive d Time (Source) Location / / Volume Laterality 02/04/2014 10:56 02/04/2014 PM CDT 11:00 PM CDT Migel LARES - ROBERT POCT Performing Organization Address [facility] Phon e Number FV POINT OF [...] LAB - BEAKER POCT Performing Organization Address City/[facility]/ZIP Code Phon e Number FV [...] LAB - BEAJ POCT Performing Organization Address City/[facility]/ZIP Code Phon e Number FV [...] LARES - BEAKER POCT Performing Organization Address City/[facility]/ZIP Code Phon e Number FV POINT OF CARE TEST, GLUCOSE POINT OF CARE TEST, GLUCOSE Troponin I (02/04/2014 7:10 PM CDT) P athologist Signature Troponin I 0.016 0.000 - [facility] 0.034 ug/L [place] LABS Specimen Anatomical Collection Method Collection Time Receive d Time (Source) Location / / Volume Laterality Blood specimen 02/04/2014 7:10 PM 014 7:23 (specimen) CDT PM CDT Adeline Diaz MD LAB - BLOOD ORDERABLES Performing Organization Address City/State/ZIP Code Phon e Number [address] [address] [facility] LABS (ABNORMAL) Glucose by meter (02/04/2014 7:01 PM CDT) P athologist Signature Glucose 157 (H) 60 - 99 POINT OF CARE mg/dL TEST, GLUCOSE Specimen Anatomical Collection Method Collection Time Receive d Time (Source) Location / / Volume Laterality 02/04/2014 7:01 PM 4 7:05 CDT PM CDT Migel Merchant MD LAB - BEAKER POCT Performing Organization Address City/[facility]/ZIP Code Phon e Number FV [...] LAB - BEAKER POCT Performing Organization Address City/[facility]/ZIP Code Phon e Number FV [...] LAB - BEAJ POCT Performing Organization Address City/[facility]/ZIP Code Phon e Number FV [...] Signature Troponin I 0.025 0.000 - [facility] 0.034 ug/L [place] LABS Specimen Anatomical Collection Method Collection Time Receive d Time (Source) Location / / Volume Laterality Blood specimen 02/04/2014 12:42 4 (specimen) PM CDT 12:45 PM CDT Adeline Diaz MD LAB - BLOOD ORDERABLES Performing Organization Address City/[facility]/ZIP Code Phon e Number [id number] [place] [address] LABS (ABNORMAL) Glucose by meter (02/04/2014 12:27 PM CDT) P athologist Signature Glucose 140 (H) 60 - 99 POINT OF CARE mg/dL TEST, GLUCOSE Specimen Anatomical Collection Method Collection Time Receive d Time (Source) Location / / Volume Laterality 02/04/2014 12:27 02/04/2014 PM CDT 12:30 PM CDT Migel Merchant MD LAB - BEAKER POCT Performing Organization Address City/[facility]/ZIP Code Phon e Number FV [...] LARES - ROBERT POCT Performing Organization Address [facility] Phon e Number FV POINT OF [...] Chavez PA-C ECG ORDERABLES Performing Organization Address [facility] Phon e Number RADIOLOGY RESULTS (ABNORMAL) Glucose by meter (02/04/2014 9:02 AM CDT) P athologist Signature Glucose 203 (H) 60 - 99 POINT OF CARE mg/dL TEST, GLUCOSE Specimen Anatomical Collection Method Collection Time Receive d Time (Source) Location / / Volume Laterality 02/04/2014 9:02 AM 4 9:05 CDT AM CDT Migel LARES - ROBERT POCT Performing Organization Address [facility] Phon e Number FV POINT OF [...] LARES - ROBERT POCT Performing Organization Address [facility] Phon e Number FV POINT OF [...] LAB - BEAKER POCT Performing Organization Address City/[facility]/ZIP [facility] Phon e Number FV POINT OF CARE TEST, GLUCOSE POINT OF CARE TEST, GLUCOSE EKG 12-lead, complete (02/04/2014 7:03 AM CDT) [facility] gist Method Time Signature Interpretation ECG Click View RADIOLOGY Image link RESULTS to view waveform and result Specimen (Source) Anatomical Collection Method Collection Time Re ceived Time Location / / Volume Laterality 02/04/2014 7:03 AM CDT Caitlin Owens MD ECG ORDERABLES Performing Organization Address [facility] Code Phon e Number RADIOLOGY RESULTS (ABNORMAL) Glucose by meter (02/04/2014 6:09 AM CDT) athologist Signature Glucose 160 (H) 60 - 99 POINT OF CARE mg/dL TEST, GLUCOSE Specimen Anatomical Collection Method Collection Time Receive d Time (Source) Location / / Volume Laterality 02/04/2014 6:09 AM 4 6:15 CDT AM CDT Migel Merchant MD LAB - BEAKER POCT Performing Organization Address [facility] Phon e Number FV POINT OF CARE TEST, GLUCOSE POINT OF CARE TEST, GLUCOSE Troponin I (02/04/2014 5:49 AM CDT) athologist Signature Troponin I ES <0.012 0.000 - [facility] 0.034 ug/L CAMPUS LABS Specimen Anatomical Collection Method Collection Time Receive d Time (Source) Location / / Volume Laterality 02/04/2014 5:49 AM 4 5:51 CDT AM CDT Caitlin Owens MD LAB - BLOOD ORDERABLES Performing Organization Address City/[facility]/ZIP Code Phon e Number [id number] [place] [address] LABS (ABNORMAL) Basic metabolic panel (02/04/2014 5:49 AM CDT) Patholo gist Method Time Signature Sodium 142 133 - 144 [facility] mmol/L [facility] LABS Potassium 4.9 3.4 - 5.3 [facility] mmol/L [facility] LABS Chloride 107 94 - 109 [facility] mmol/L [facility] LABS Carbon Dioxide 23 20 - 32 [facility] mmol/L [facility] LABS Anion Gap 12 6 - 17 [facility] mmol/L [facility] LABS Glucose 151 (H) 60 - 99 [facility] mg/dL [facility] LABS Urea Nitrogen 57 (H) 7 - 30 [facility] mg/dL [facility] LABS Creatinine 5.94 (H) 0.66 - [facility] 1.25 mg/dL [facility] LABS GFR Estimate 10 (L) >60 [facility] mL/min/1.7 [place] m2 [place] LABS GFR Estimate If 12 (L) >60 [facility] Black mL/min/1.[address] LABS Calcium 9.4 8.5 - 10.4 [facility] mg/dL [facility] LABS Specimen Anatomical Collection Method Collection Time Receive d Time (Source) Location / / Volume Laterality Blood specimen 02/04/2014 5:49 AM 014 5:51 (specimen) CDT AM CDT Omaira Chavez PA-C LAB - BLOOD ORDERABLES Performing Organization Address City/[facility]/ZIP Code Phon e Number [address] LABS (ABNORMAL) Phosphorus (02/04/2014 5:49 AM CDT) P athologist Signature Phosphorus 6.3 (H) 2.5 - 4.5 [facility] mg/dL [place] LABS Specimen Anatomical Collection Method Collection Time Receive d Time (Source) Location / / Volume Laterality Blood specimen 02/04/2014 5:49 AM 014 5:51 (specimen) CDT AM CDT Omaira Chavez PA-C LAB - BLOOD ORDERABLES Performing Organization Address City/[facility]/ZIP Code Phon e Number [address] LABS Magnesium (02/04/2014 5:49 AM CDT) [...] Phon e Number [facility] [address] [place] [address] [facility] LABS (ABNORMAL) CBC with platelets differential (02/04/2014 5:49 AM CDT) [facility] gist Method Time Signature WBC 13.8 (H) 4.0 - [facility] 11.0 [facility] 10e9/L [place] LABS RBC Count 3.10 (L) 4.4 - 5.9 [facility] 10e12/L [facility] LABS Hemoglobin 9.5 (L) 13.3 - [facility] 17.7 g/dL [facility] LABS Hematocrit 28.7 (L) 40.0 - [facility] 53.0 % [facility] LABS MCV 93 78 - 100 [facility] fl [facility] LABS MCH 30.6 26.5 - [facility] 33.0 pg [facility] LABS MCHC 33.1 31.5 - [facility] 36.5 g/dL [facility] LABS RDW 14.6 10.0 - [facility] 15.0 % [facility] LABS Platelet Count 91 (L) 150 - 450 [facility] 10e9/L [facility] LABS Diff Method Automated [facility] Method [facility] LABS % Neutrophils 95.8 % [facility] LABS % Lymphocytes 1.2 % [facility] LABS % Monocytes 2.8 % [facility] LABS % Eosinophils 0.0 % [facility] % Basophils 0.0 % [facility] LABS % Immature 0.2 % [facility] Granulocytes [facility] LABS Absolute 13.2 (H) 1.6 - 8.3 [facility] Neutrophil 10e9/L [facility] LABS Absolute 0.2 (L) 0.8 - 5.3 [facility] Lymphocytes 10e9/L [facility] LABS Absolute 0.4 0.0 - 1.3 [facility] Monocytes 10e9/L [facility] LABS Absolute 0.0 0.0 - 0.7 [facility] Eosinophils 10e9/L [facility] LABS Absolute 0.0 0.0 - 0.2 [facility] Basophils 10e9/L [facility] LABS Abs Immature 0.0 0 - 0.4 [facility] Granulocytes 10e9/L [facility] LABS Specimen Anatomical Collection Method Collection Time Receive d Time (Source) Location / / Volume Laterality Blood specimen 02/04/2014 5:49 AM 014 5:51 (specimen) CDT AM CDT Omaira Chavez PA-C LAB - BLOOD ORDERABLES Performing Organization Address City/State/ZIP Code Phon e Number [address] [address] [facility] LABS (ABNORMAL) Glucose by meter (02/04/2014 5:33 AM CDT) P athologist Signature Glucose 155 (H) 60 - 99 POINT OF CARE mg/dL TEST, GLUCOSE Specimen Anatomical Collection Method Collection Time Receive d Time (Source) Location / / Volume Laterality 02/04/2014 5:33 AM 4 5:35 CDT AM CDT Migel LARES - ROBERT POCT Performing Organization Address City/[facility]/ZIP Code Phon e Number FV [...] LAB - BEAJ POCT Performing Organization Address City/[facility] Code Phon e Number FV POINT [...] LARES - ROBERT POCT Performing Organization Address City/[facility] Code Phon e Number FV POINT [...] LARES - ROBERT POCT Performing Organization Address City/[facility] Code Phon e Number FV POINT OF CARE TEST, GLUCOSE POINT OF CARE TEST, GLUCOSE Potassium (02/03/2014 10:16 PM CDT) P athologist Signature Potassium 4.8 3.4 - 5.3 [facility] mmol/L [place] LABS Specimen Anatomical Collection Method Collection Time Receive d Time (Source) Location / / Volume Laterality Blood specimen 02/03/2014 10:16 4 (specimen) PM CDT 10:19 PM CDT Caitlin Owens MD LAB - BLOOD ORDERABLES Performing Organization Address City/State/ZIP Code Phon e Number [address] LABS (ABNORMAL) Hemoglobin (02/03/2014 10:16 PM CDT) athologist Signature Hemoglobin 9.4 (L) 13.3 - 17.7 [facility] g/dL [place] LABS Specimen Anatomical Collection Method Collection Time Receive d Time (Source) Location / / Volume Laterality Blood specimen 02/03/2014 10:16 4 (specimen) PM CDT 10:19 PM CDT Caitlin Owens MD LAB - BLOOD ORDERABLES Performing Organization Address City/[facility]/ZIP Code Phon e Number [phone] [place] [address] LABS (ABNORMAL) Glucose by meter (02/03/2014 9:55 [...] CDT Migel JONES POCT Performing Organization Address City/[facility]/ZIP Code Phon e Number FV [...] LAB - BEAKER POCT Performing Organization Address City/[facility]/ZIP Code Phon e Number FV [...] LAB - BEAKER POCT Performing Organization Address [facility] Phon e Number FV POINT OF CARE TEST, GLUCOSE POINT OF CARE TEST, GLUCOSE Potassium (02/03/2014 6:52 PM CDT) athologist Signature Potassium 4.7 3.4 - 5.3 [facility] mmol/L [facility]AMP[facility] LABS Specimen Anatomical Collection Method Collection Time Receive d Time (Source) Location / / Volume Laterality Blood specimen 02/03/2014 6:52 PM 014 6:53 (specimen) CDT PM CDT Caitlin Owens MD LAB - BLOOD ORDERABLES Performing Organization Address [facility]/ZIP Code Phon e Number [address] LABS (ABNORMAL) Hemoglobin (02/03/2014 6:52 PM CDT) athologist Signature Hemoglobin 9.6 (L) 13.3 - 17.7 [facility] g/dL [facility]AMP[facility] LABS Specimen Anatomical Collection Method Collection Time Receive d Time (Source) Location / / Volume Laterality Blood specimen 02/03/2014 6:52 PM 014 6:53 (specimen) CDT PM CDT Caitlin Owens MD LAB - BLOOD ORDERABLES Performing Organization Address City/[facility] [place] [address] [facility] LABS (ABNORMAL) Glucose by meter (02/03/2014 [...] LAB - BEAJ POCT Performing Organization Address City/[facility]/ZIP Code Phon e Number FV [...] Signature Potassium 4.7 3.4 - 5.3 [facility] mmol/L [facility]AMP[facility] LABS Specimen Anatomical Collection Method Collection Time Receive d Time (Source) Location / / Volume Laterality Blood specimen 02/03/2014 1:41 PM 014 1:43 (specimen) CDT PM CDT Caitlin Owens MD LAB - BLOOD ORDERABLES Performing Organization Address City/[facility]/ZIP Code Phon e Number [address] LABS (ABNORMAL) Hemoglobin (02/03/2014 1:41 PM CDT) athologist Signature Hemoglobin 9.8 (L) 13.3 - 17.7 [facility] g/dL [place] LABS Specimen Anatomical Collection Method Collection Time Receive d Time (Source) Location / / Volume Laterality Blood specimen 02/03/2014 1:41 PM 014 1:43 (specimen) CDT PM CDT Caitlin Owens MD LAB - BLOOD ORDERABLES Performing Organization Address City/[facility]/ZIP Code Phon e Number [address] LABS (ABNORMAL) Glucose by meter (02/03/2014 [...] LAB - BEAKER POCT Performing Organization Address City/[facility]/ZIP Code Phon e Number FV [...] LAB - BEAKER POCT Performing Organization Address City/[facility] Phon e Number FV POINT OF CARE TEST, GLUCOSE POINT OF CARE TEST, GLUCOSE Potassium (02/03/2014 10:11 AM CDT) athologist Signature Potassium 4.8 3.4 - 5.3 [facility] mmol/L [facility]AMP[facility] LABS Specimen Anatomical Collection Method Collection Time Receive d Time (Source) Location / / Volume Laterality Blood specimen 02/03/2014 10:11 4 (specimen) AM CDT 10:23 AM CDT Caitlin Owens MD LAB - BLOOD ORDERABLES Performing Organization Address City/[facility] Code Phon e Number [address] LABS (ABNORMAL) Hemoglobin (02/03/2014 10:11 AM CDT) P athologist Signature Hemoglobin 9.7 (L) 13.3 - 17.7 [facility] g/dL [facility]AMP[facility] LABS Specimen Anatomical Collection Method Collection Time Receive d Time (Source) Location / / Volume Laterality Blood specimen 02/03/2014 10:11 4 (specimen) AM CDT 10:23 AM CDT Caitlin Owens MD LAB - BLOOD ORDERABLES Performing Organization Address City/[facility] Phon e Number [address] LABS (ABNORMAL) Glucose by meter (02/03/2014 9:58 AM CDT) P athologist Signature Glucose 168 (H) 60 - 99 POINT OF CARE mg/dL TEST, GLUCOSE Specimen Anatomical Collection Method Collection Time Receive d Time (Source) Location / / Volume Laterality 02/03/2014 9:58 AM 4 CDT 10:00 AM CDT Migel Merchant MD LAB - BEAJ POCT Performing Organization Address City/[facility] Phon e Number FV POINT OF [...] LARES - ROBERT POCT Performing Organization Address City/[facility] Phon e Number FV POINT OF [...] 8:10 CDT AM CDT Migel [facility] PO[facility] Performing Organization Address City/State/ZIP [...] LARES - BEAJ POCT Performing Organization Address City/[facility]/ZIP Code Phon e Number FV POINT OF CARE TEST, GLUCOSE POINT OF CARE TEST, GLUCOSE (ABNORMAL) Basic metabolic panel (02/03/2014 5:38 AM CDT) Patholo gist Method Time Signature Sodium 141 133 - 144 [facility] mmol/L [facility] Potassium 4.4 3.4 - 5.3 [facility] mmol/L [facility] Chloride 105 94 - 109 [facility] mmol/L [facility] [place] [facility] Carbon Dioxide 20 20 - 32 [facility] mmol/L [facility] Anion Gap 15 6 - 17 [facility] mmol/L [facility] Glucose 170 (H) 60 - 99 [facility] mg/dL [facility] [place] [facility] Urea Nitrogen 49 (H) 7 - 30 [facility] mg/dL [facility] [place] [facility] Creatinine 6.38 (H) 0.66 - [facility] 1.25 mg/dL [facility] [place] [facility] GFR Estimate 9 (L) >60 [facility] [...] Phon e Number [facility] [address] [place] [address] [facility] LABS (ABNORMAL) Phosphorus (02/03/2014 5:38 AM CDT) P athologist Signature Phosphorus 4.7 (H) 2.5 - 4.5 [facility] mg/dL [place] [facility] Specimen Anatomical Collection Method Collection Time Receive d Time (Source) Location / / Volume Laterality Blood specimen 02/03/2014 5:38 AM 014 5:40 (specimen) CDT AM CDT Omaira Chavez PA-C LAB - BLOOD ORDERABLES Performing Organization Address City/State/ZIP Code Phon e Number [facility] [address] [place] [address] [facility]S Magnesium (02/03/2014 5:38 AM CDT) athologist Signature Magnesium 2.0 1.6 - 2.3 [facility] mg/dL [place] [facility] Specimen Anatomical Collection Method Collection Time Receive d Time (Source) Location / / Volume Laterality Blood specimen 02/03/2014 5:38 AM 014 5:40 (specimen) CDT AM CDT Omaira Chavez PA-C LAB - BLOOD ORDERABLES Performing Organization Address City/State/ZIP Code Phon e Number [facility] [address] [place] [address] [facility] LABS (ABNORMAL) CBC with platelets differential (02/03/2014 5:38 AM CDT) Patholo gist Method Time Signature WBC 13.2 (H) 4.0 - [facility] 11.0 [place] 10e9/L [place] [facility] RBC Count 3.20 (L) 4.4 - 5.9 [facility] 10e12/L [facility] Hemoglobin 9.9 (L) 13.3 - [facility] 17.7 g/dL [facility] Hematocrit 30.2 (L) 40.0 - [facility] 53.0 % [facility] MCV 94 78 - 100 [facility] fl [facility] MCH 30.9 26.5 - [facility] 33.0 pg [facility] MCHC 32.8 31.5 - [facility] 36.5 g/dL [facility] RDW 14.5 10.0 - [facility] 15.0 % [facility] Platelet Count 108 (L) 150 - 450 [facility] 10e9/L [facility] Diff Method Automated [facility] Method [facility] % Neutrophils 96.9 % [facility] [place] [facility] % Lymphocytes 0.7 % [facility] % Monocytes 2.1 % [facility] [place] [facility] % Eosinophils 0.0 % [facility] % Basophils 0.1 % [facility] % Immature 0.2 % [facility] Granulocytes [facility] [place] [facility] Absolute 12.8 (H) 1.6 - 8.3 [facility] Neutrophil 10e9/L [facility] Absolute 0.1 (L) 0.8 - 5.3 [facility] Lymphocytes 10e9/L [facility] Absolute 0.3 0.0 - 1.3 [facility] Monocytes 10e9/L [facility] Absolute 0.0 0.0 - 0.7 [facility] Eosinophils 10e9/L [facility] Absolute 0.0 0.0 - 0.2 [facility] Basophils 10e9/L [facility] Abs Immature 0.0 0 - 0.4 [facility] Granulocytes 10e9/L [facility] Specimen Anatomical Collection Method Collection Time Receive d Time (Source) Location / / Volume Laterality Blood specimen 02/03/2014 5:38 AM 014 5:40 (specimen) CDT AM CDT Omaira Chavez PA-C LAB - BLOOD ORDERABLES Performing Organization Address City/[facility]/ZIP Code Phon e Number [address] LABS (ABNORMAL) Hemoglobin A1c (02/03/2014 5:38 AM CDT) Analysis Performed At Patho logist Time Signature Hemoglobin A1C 6.2 (H) 4.3 - 6.0 [facility] % [facility] Specimen Anatomical Collection Method Collection Time Receive d Time (Source) Location / / Volume Laterality Blood specimen 02/03/2014 5:38 AM 014 5:40 (specimen) CDT AM CDT Caitlin Owens MD LAB - BLOOD ORDERABLES Performing Organization Address City/[facility]/ZIP Code Phon e Number [address] LABS (ABNORMAL) Glucose by meter (02/03/2014 5:05 AM CDT) P athologist Signature Glucose 176 (H) 60 - 99 POINT OF CARE mg/dL TEST, GLUCOSE Specimen Anatomical Collection Method Collection Time Receive d Time (Source) Location / / Volume Laterality 02/03/2014 5:05 AM 4 5:10 CDT AM CDT Migel Merchant MD LAB - BEAJ POCT Performing Organization Address [facility] Phon e Number FV POINT OF [...] LAB - BEAJ POCT Performing Organization Address [facility] Phon e Number FV POINT OF [...] LAB - BEAJ POCT Performing Organization Address [facility] Code Phon e Number FV POINT [...] LARES - BEAJ POCT Performing Organization Address [facility] Phon e Number FV POINT OF CARE TEST, GLUCOSE POINT OF CARE TEST, GLUCOSE Potassium (02/03/2014 1:18 AM CDT) athologist Signature Potassium 4.7 3.4 - 5.3 [facility] mmol/L [place] [facility] Specimen Anatomical Collection Method Collection Time Receive d Time (Source) Location / / Volume Laterality Blood specimen 02/03/2014 1:18 AM 014 1:20 (specimen) CDT AM CDT Caitlin Owens MD LAB - BLOOD ORDERABLES Performing Organization Address City/[facility]/ZIP Code Phon e Number [facility] [address] LABS (ABNORMAL) Hemoglobin (02/03/2014 1:18 AM CDT) athologist Signature Hemoglobin 9.8 (L) 13.3 - 17.7 [facility] g/dL [place] [facility] Specimen Anatomical Collection Method Collection Time Receive d Time (Source) Location / / Volume Laterality Blood specimen 02/03/2014 1:18 AM 014 1:20 (specimen) CDT AM CDT Caitlin Owens MD LAB - BLOOD ORDERABLES Performing Organization Address City/State/ZIP Code Phon e Number [address] LABS (ABNORMAL) Glucose by meter (02/03/2014 [...] [facility] POCT Performing Organization Address City/State/ZIP Code Phon [...] Signature Phosphorus 4.4 2.5 - 4.5 [facility] mg/dL CAMPUS LABS Specimen Anatomical Collection Method Collection Time Receive d Time (Source) Location / / Volume Laterality Blood specimen 02/02/2014 10:50 4 (specimen) PM CDT 11:06 PM CDT Caitlin Owens MD LAB - BLOOD ORDERABLES Performing Organization Address City/State/ZIP Code Phon e Number [facility] [address] LABS Magnesium (02/02/2014 10:50 PM CDT) athologist Signature Magnesium 1.8 1.6 - 2.3 [facility] mg/dL [place] [facility] Specimen Anatomical Collection Method Collection Time Receive d Time (Source) Location / / Volume Laterality Blood specimen 02/02/2014 10:50 4 (specimen) PM CDT 11:06 PM CDT Caitlin Owens MD LAB - BLOOD ORDERABLES Performing Organization Address City/[facility]/ZIP Code Phon e Number [facility] [address] LABS (ABNORMAL) Basic metabolic panel (02/02/2014 10:50 PM CDT) [facility] gist Method Time Signature Sodium 138 133 - 144 [facility] mmol/L [facility]S Potassium 4.5 3.4 - 5.3 [facility] mmol/L [facility] Chloride 104 94 - 109 [facility] mmol/L [facility] Carbon Dioxide 25 20 - 32 [facility] mmol/L [facility] Anion Gap 10 6 - 17 [facility] mmol/L [facility] Glucose 134 (H) 60 - 99 [facility] mg/dL [facility] Urea Nitrogen 44 (H) 7 - 30 [facility] mg/dL [facility] Creatinine 6.14 (H) 0.66 - [facility] 1.25 mg/dL [facility] GFR Estimate 9 (L) >60 [facility] mL/min/1.7 [place] m2 CAMPUS LABS GFR Estimate If 11 (L) >60 [facility] Black mL/min/1.7 [place] [address] CAMPUS LABS Calcium 8.8 8.5 - 10.4 [facility] mg/dL [facility] Specimen Anatomical Collection Method Collection Time Receive d Time (Source) Location / / Volume Laterality Blood specimen 02/02/2014 10:50 4 (specimen) PM CDT 11:06 PM CDT Caitlin Owens MD LAB - BLOOD ORDERABLES Performing Organization Address City/State/ZIP Code Phon e Number [phone] [place] [address] LABS (ABNORMAL) CBC with platelets differential (02/02/2014 10:50 PM CDT) [facility] gist Method Time Signature WBC 8.2 4.0 - [facility] 11.0 [facility] 10e9/L [place] [facility] RBC Count 3.34 (L) 4.4 - 5.9 [facility] 10e12/L [facility] Hemoglobin 10.3 (L) 13.3 - [facility] 17.7 g/dL [facility]S Hematocrit 30.9 (L) 40.0 - [facility] 53.0 % [facility] MCV 93 78 - 100 [facility] fl [facility] MCH 30.8 26.5 - [facility] 33.0 pg [facility] LABS MCHC 33.3 31.5 - [facility] 36.5 g/dL [facility]S RDW 14.3 10.0 - [facility] 15.0 % [facility]S Platelet Count 79 (L) 150 - 450 [facility] 10e9/L [facility] LABS Diff Method Automated [facility] Method [facility] LABS % Neutrophils 96.7 % [facility] LABS % Lymphocytes 1.6 % [facility] LABS % Monocytes 1.2 % [facility] LABS % Eosinophils 0.4 % [facility] % Basophils 0.0 % [facility] % Immature 0.1 % [facility] Granulocytes [facility] Absolute 7.9 1.6 - 8.3 [facility] Neutrophil 10e9/L [facility] Absolute 0.1 (L) 0.8 - 5.3 [facility] Lymphocytes 10e9/L [facility] Absolute 0.1 0.0 - 1.3 [facility] Monocytes 10e9/L [facility] Absolute 0.0 0.0 - 0.7 [facility] Eosinophils 10e9/L [facility] Absolute 0.0 0.0 - 0.2 [facility] Basophils 10e9/L [facility] Abs Immature 0.0 0 - 0.4 [facility] Granulocytes 10e9/L [facility] Specimen Anatomical Collection Method Collection Time Receive d Time (Source) Location / / Volume Laterality Blood specimen 02/02/2014 10:50 4 (specimen) PM CDT 11:06 PM CDT Caitlin Owens MD LAB - BLOOD ORDERABLES Performing Organization Address City/State/ZIP Code Phon e Number [facility] [address] [place], [place] [phone] [place] [address] LABS (ABNORMAL) VENOUS PANEL (02/02/2014 10:09 PM CDT) [facility] gist Method Time Signature Ph Venous 7.31 (L) 7.32 - [facility] 7.43 pH [facility] LAB[facility] PCO2 Venous 52 (H) 40 - 50 [facility] mm Hg [facility] PO2 Venous 34 25 - 47 [facility] mm Hg [facility] LABS Bicarbonate 26 21 - 28 [facility] Venous mmol/L [facility] LABS Base Deficit 0.3 mmol/L [facility] Venous [facility] LABS Comment: Reference range: -7.7 to 1.9 FIO2 45 [facility] LABS Sodium 137 133 - 144 mmol/L [facility] LABS Potassium 4.4 3.4 - 5.3 mmol/L [facility] LABS Hemoglobin 10.0 (L) 13.3 - 17.7 g/dL [facility] LABS Glucose 116 (H) 60 - 99 mg/dL [facility] LABS Calcium Ionized Whole Blood 4.8 4.4 - 5.2 mg/dL [facility] LABS Specimen Anatomical Collection Method Collection Time Receive d Time (Source) Location / / Volume Laterality 02/02/2014 10:09 02/02/2014 PM CDT 10:14 PM CDT Migel Merchant MD LAB - BLOOD ORDERABLES Performing Organization Address City/State/ZIP Code Phon e Number [address] [address] [facility] LABS (ABNORMAL) Glucose by meter (02/02/2014 [...] Venous 7.35 7.32 - [facility] 7.43 pH [facility]S PCO2 Venous 50 40 - 50 mm [facility] Hg [facility] PO2 Venous 46 25 - 47 mm [facility] Hg [facility] LABS Bicarbonate 28 21 - 28 [facility] Venous mmol/L [facility] LABS Base Excess 1.8 mmol/L [facility] Venous [facility] LABS Comment: Reference range: -7.7 to 1.9 FIO2 100% [facility] LABS Sodium 141 133 - 144 mmol/L [facility] LABS Potassium 3.7 3.4 - 5.3 mmol/L [facility] LABS Hemoglobin 10.3 (L) 13.3 - 17.7 g/dL [facility] LABS Glucose 76 60 - 99 mg/dL [facility] LABS Calcium Ionized Whole Blood 4.8 4.4 - 5.2 mg/dL [facility] LABS Specimen Anatomical Collection Method Collection Time Receive d Time (Source) Location / / Volume Laterality 02/02/2014 6:40 PM 4 6:44 CDT PM CDT Migel Merchant MD LAB - BLOOD ORDERABLES Performing Organization Address City/[facility]/ZIP Code Phon e Number [facility] [address] [place] [address] [facility] LABS Glucose by meter (02/02/2014 5:11 PM CDT) P athologist Signature Glucose 89 60 - 99 POINT OF CARE mg/dL TEST, GLUCOSE Specimen Anatomical Collection Method Collection Time Receive d Time (Source) Location / / Volume Laterality 02/02/2014 5:11 PM 4 5:15 CDT PM CDT Migel LARES - BEAJ POCT Performing Organization Address City/[facility]/ZIP Code Phon e Number FV [...] LARES - BEAJ POCT Performing Organization Address City/[facility] Code Phon e Number FV POINT [...] MARYELLEN Blood component (02/02/2014 2:07 PM CDT) [facility] Method Time Signature Unit Number [id number] [facility] LABS Blood Red Blood [facility] Component Cells [facility] Leukocyte [place] LABS Reduced Division 00 [facility] LABS Status of No longer [place] Unit available [facility] 02/06/2014 HOSPITAL LAB 0300 Specimen Anatomical Collection Method Collection Time Receive d Time (Source) Location / / Volume Laterality 02/02/2014 2:07 PM 4 2:10 CDT PM CDT Caitlin Owens MD LABORATORY Performing Organization Address City/State/ZIP Code Phon e Number [place] [address] [address] [place], [place] [address] [facility] LABS [facility] LAB Blood component (02/02/2014 2:07 PM CDT) [facility] Method Time Signature Unit Number [id number] [facility] LABS Blood Red Blood [facility] Component Cells [facility] LABS Reduced Division 00 [facility] Number [facility] LABS Status of No longer [facility] Unit available [facility] 02/06/2014 HOSPITAL LAB 0300 Specimen Anatomical Collection Method Collection Time Receive d Time (Source) Location / / Volume Laterality 02/02/2014 2:07 PM 201 4 2:10 CDT PM CDT Caitlin Owens MD LABORATORY Performing Organization Address City/State/ZIP Code Phon e Number [facility] [address] [place], [place] [address] HOSPITAL [facility] LABS [facility] LAB ABO/Rh type and screen (02/02/2014 2:07 PM CDT) Patholo gist Method Time Signature Units Ordered 2 [facility] LABS ABO A [facility] LABS RH(D) Pos [facility] LABS Antibody Neg [facility] Screen [facility] LABS Test Valid [facility] Only At [facility] BLOOD BANK Center,[facility] LAB w Hospital Specimen 02/05/2014 [facility] BLOOD BANK LAB Crossmatch Red Blood [facility] Cells [facility] LABS Specimen Anatomical Collection Method Collection Time Receive d Time (Source) Location / / Volume Laterality Blood specimen 02/02/2014 2:07 PM 014 2:10 (specimen) CDT PM CDT Caitlin Owens MD LAB - BLOOD BANK TEST ORDER Performing Organization Address City/State/ZIP Code Phon e Number [facility] [address] [place] [address] [facility] LABS [facility] BLOOD BANK LAB (ABNORMAL) Lipid Profile (02/02/2014 2:07 PM CDT) P athologist Signature Cholesterol 135 <200 mg/dL [facility] LABS Comment: LDL Cholesterol is the primary guide to therapy. The NCEP recommends further evaluation of: patients with cholesterol greater than 200 mg/dL if additional risk facto rs are present, cholesterol greater than 240 mg/dL, triglycerides greater than 1 50 mg/dL, or HDL less than 40 mg/dL. Triglycerides 124 0 - 150 mg/dL [facility] LABS HDL Cholesterol 34 (L) >40 mg/dL [facility] LABS LDL Cholesterol Calculated 77 0 - 129 mg/dL [facility] LABS Comment: LDL Cholesterol is the primary guide to therapy: LDL-cholesterol goal in high risk patients is <100 mg/dL and in very high risk patients is <70 mg/dL. VLDL-Cholesterol 25 0 - 30 mg/dL [facility] Cholesterol/HDL Ratio 4.0 0.0 - 5.0 [facility] Specimen Anatomical Collection Method Collection Time Receive d Time (Source) Location / / Volume Laterality Blood specimen 02/02/2014 2:07 PM 014 2:08 (specimen) CDT PM CDT Caitlin Owens MD LAB - BLOOD ORDERABLES Performing Organization Address City/[facility]/ZIP Code Phon e Number [facility] [address] LABS (ABNORMAL) Hemoglobin A1c (02/02/2014 2:07 PM CDT) Analysis Performed At Patho logist Time Signature Hemoglobin A1C 6.2 (H) 4.3 - 6.0 [facility] LABS Specimen Anatomical Collection Method Collection Time Receive d Time (Source) Location / / Volume Laterality Blood specimen 02/02/2014 2:07 PM 014 2:08 (specimen) CDT PM CDT Caitlin Owens MD LAB - BLOOD ORDERABLES Performing Organization Address City/[facility]/ZIP Code Phon e Number [facility] [address] [place], [place] [phone] [place] [address] LABS Hepatitis C antibody (02/02/2014 2:07 PM [...] Phon e Number [facility] [address] [place], [place] [phone] [place] [address] MICROBIOLOGY Hepatitis B core antibody IgM (02/02/2014 [...] Phon e Number [facility] [address] [place], [place] [phone] [place] [address] MICROBIOLOGY Hepatitis B surface antigen (02/02/2014 2:07 PM CDT) [facility] Signature Hep B Surface Negative NEG [facility] Agn MICROBIOLOGY Specimen Anatomical Collection Method Collection Time Receive d Time (Source) Location / / Volume Laterality Blood specimen 02/02/2014 2:07 PM 2 014 2:08 (specimen) CDT PM CDT Caitlin Owens MD LAB - BLOOD ORDERABLES Performing Organization Address City/State/ZIP Code Phon e Number [facility] [address] [place], [place] [phone] [place] [address] MICROBIOLOGY HIV Antigen Antibody Combo (02/02/2014 2:07 PM CDT) [facility] Signature HIV Antigen Nonreactive NR [facility] Antibody HIV-1 p24 Ag & HIV-1/HIV-2 Ab Not Detected [facility] LABS Specimen Anatomical Collection Method Collection Time Receive d Time (Source) Location / / Volume Laterality Blood specimen 02/02/2014 2:07 PM 2 014 2:08 (specimen) CDT PM CDT Caitlin Owens MD LAB - BLOOD ORDERABLES Performing Organization Address City/[facility]/ZIP Code Phon e Number [facility] [address] LABS EBV Capsid Antibody IgM (02/02/2014 2:07 PM CDT) [facility] Signature EBV Capsid <0.2 0.0 - 0.8 [facility] Antibody IgM No detectable antibody. [facility] [place] LABS Specimen Anatomical Collection Method Collection Time Receive d Time (Source) Location / / Volume Laterality Blood specimen 02/02/2014 2:07 PM 2 014 2:08 (specimen) CDT PM CDT Caitlin Owens MD LAB - BLOOD ORDERABLES Performing Organization Address City/[facility]/ZIP Code Phon e Number [facility] [address] [place], [place] [phone] [place] [address] LABS (ABNORMAL) EBV Capsid Antibody IgG (02/02/2014 2:07 PM CDT) Patholo gist Method Time Signature EBV Capsid >8.0 0.0 - 0.8 [facility] Antibody IgG Positive, suggests recent or past exposure [facility] (H) [place] LABS Specimen Anatomical Collection Method Collection Time Receive d Time (Source) Location / / Volume Laterality Blood specimen 02/02/2014 2:07 PM 014 2:08 (specimen) CDT PM CDT Caitlin Owens MD LAB - BLOOD ORDERABLES Performing Organization Address City/[facility]/ZIP Code Phon e Number [facility] [address] LABS CMV antibody IgM (02/02/2014 2:07 PM CDT) Analysis Performed At Patho logist Time Signature CMV Antibody <0.2 0.0 - 0.8 [facility] IgM Negative [facility] LABS Specimen Anatomical Collection Method Collection Time Receive d Time (Source) Location / / Volume Laterality Blood specimen 02/02/2014 2:07 PM 014 2:08 (specimen) CDT PM CDT Caitlin Owens MD LAB - BLOOD ORDERABLES Performing Organization Address City/[facility]/ZIP Code Phon e Number [facility] [address] LABS (ABNORMAL) CMV Antibody IgG (02/02/2014 2:07 PM CDT) P athologist Signature CMV Antibody 7.8 (H) 0.0 - 0.8 [facility] IgG [facility] LABS Comment: Positive Specimen Anatomical Collection Method Collection Time Receive d Time (Source) Location / / Volume Laterality Blood specimen 02/02/2014 2:07 PM 014 2:08 (specimen) CDT PM CDT Caitlin Owens MD LAB - BLOOD ORDERABLES Performing Organization Address City/[facility]/ZIP Code Phon e Number [address] LABS (ABNORMAL) Comprehensive metabolic panel (02/02/2014 2:07 PM CDT) Patholo gist Method Time Signature Sodium 141 133 - 144 [facility] mmol/L [facility] LABS Potassium 4.2 3.4 - 5.3 [facility] mmol/L [facility] LABS Chloride 101 94 - 109 [facility] mmol/L [facility] LABS Carbon Dioxide 26 20 - 32 [facility] mmol/L [facility] LABS Anion Gap 13 6 - 17 [facility] mmol/L [facility] LABS Glucose 112 (H) 60 - 99 [facility] mg/dL [facility] LABS Urea Nitrogen 42 (H) 7 - 30 [facility] mg/dL [facility] LABS Creatinine 6.03 (H) 0.66 - [facility] 1.25 [place] mg/dL CAMPUS LABS GFR Estimate 9 (L) >60 [facility] mL/min/1. [place] 7m2 [place] LABS GFR Estimate If 11 (L) >60 [facility] Black mL/min/1. [place] [id number] CAMPUS LABS Calcium 9.9 8.5 - [facility] 10.4 [place] mg/dL CAMPUS LABS Bilirubin Total 0.7 0.2 - 1.3 [facility] mg/dL [facility] LABS Albumin 4.2 3.3 - 4.9 [facility] g/dL [facility] LABS Protein Total 7.5 6.8 - 8.8 [facility] g/dL [facility] LABS Alkaline 88 40 - 150 [facility] Phosphatase U/L [facility] LABS ALT 33 0 - 70 [facility] U/L [facility] LABS AST 18 0 - 45 [facility] U/L [facility] LABS Specimen Anatomical Collection Method Collection Time Receive d Time (Source) Location / / Volume Laterality Blood specimen 02/02/2014 2:07 PM 014 2:08 (specimen) CDT PM CDT Caitlin Owens MD LAB - BLOOD ORDERABLES Performing Organization Address City/State/ZIP Code Phon e Number [phone] [place] [address] LABS (ABNORMAL) CBC with platelets differential (02/02/2014 2:07 PM CDT) [facility] gist Method Time Signature WBC 6.3 4.0 - [facility] 11.0 [place] 10e9/L [place] [place] [facility] RBC Count 3.71 (L) 4.4 - 5.9 [facility] 10e12/L [facility] Hemoglobin 11.5 (L) 13.3 - [facility] 17.7 g/dL [facility] Hematocrit 33.7 (L) 40.0 - [facility] 53.0 % [facility] MCV 91 78 - 100 [facility] fl [facility] MCH 31.0 26.5 - [facility] 33.0 pg [facility] MCHC 34.1 31.5 - [facility] 36.5 g/dL [facility] RDW 14.0 10.0 - [facility] 15.0 % [facility] Platelet Count 110 (L) 150 - 450 [facility] 10e9/L [facility] Diff Method Automated [facility] Method [facility] % Neutrophils 52.4 % [facility] % Lymphocytes 32.1 % [facility] % Monocytes 7.9 % [facility] % Eosinophils 7.1 % [facility] % Basophils 0.3 % [facility] % Immature 0.2 % [facility] Granulocytes [facility] Absolute 3.3 1.6 - 8.3 [facility] Neutrophil 10e9/L [facility] Absolute 2.0 0.8 - 5.3 [facility] Lymphocytes 10e9/L [facility] Absolute 0.5 0.0 - 1.3 [facility] Monocytes 10e9/L [facility] Absolute 0.5 0.0 - 0.7 [facility] Eosinophils 10e9/L [facility] Absolute 0.0 0.0 - 0.2 [facility] Basophils 10e9/L [facility] Abs Immature 0.0 0 - 0.4 [facility] Granulocytes 10e9/L [facility] Specimen Anatomical Collection Method Collection Time Receive d Time (Source) Location / / Volume Laterality Blood specimen 02/02/2014 2:07 PM 014 2:08 (specimen) CDT PM CDT Caitlin Owens MD LAB - BLOOD ORDERABLES Performing Organization Address City/[facility] Code Phon e Number [address] LABS Creatinine urine calculation only (02/02/2014 2:00 PM CDT) P athologist Signature Creatinine 88 mg/dL [facility] Urine [place] [facility] Specimen Anatomical Collection Method Collection Time Receive d Time (Source) Location / / Volume Laterality 02/02/2014 2:00 PM 4 2:12 CDT PM CDT Caitlin Owens MD LAB - URINE ORDERABLES Performing Organization Address City/[facility] Phon e Number [address] LABS (ABNORMAL) Urine culture (02/02/2014 2:00 PM CDT) Component Value Ref Test Analysis Performed At Patholo gist Range Method Time Signature Specimen Midstream Urine [facility] Description [facility] Special Specimen received [facility] Requests in preservative MICROBIOLOGY Culture Micro <10,000 colonies/mL Gram pos itive cocci No further identification Susceptibility [facility] testing not routinely done [place] CROBIOLOGY <10,000 colonies/mL Strain 2 Gram positive [...] MICRO GENERAL ORDERABL ES Performing Organization Address City/[facility] Code Phon e Number [address] LABS [facility] MICROBIOLOGY (ABNORMAL) Protein random urine (02/02/2014 2:00 PM CDT) [facility] Method [place] Signature Protein Random 1.89 g/L [facility] Urine [facility] Protein Total 2.15 (H) 0 - 0.2 [facility] Urine g/gr g/g Cr [facility]S Specimen Anatomical Collection Method Collection Time Receive d Time (Source) Location / / Volume Laterality Urine specimen URINE SPECIMEN 02/02/2014 2:00 PM 02/02 2:12 (specimen) OBTAINED BY CLEAN CDT PM CDT CATCH PROCEDURE / Unknown Caitlin Owens MD LAB - URINE ORDERABLES Performing Organization Address City/[facility] Phon e Number [address] LABS (ABNORMAL) Routine UA with microscopic (02/02/2014 2:00 PM CDT) [facility] Method Time Signature Color Urine Light Yellow [facility] Appearance Urine Clear [facility] Glucose Urine 70 (A) NEG mg/dL [facility] Bilirubin Urine Negative NEG [facility] Ketones Urine Negative NEG mg/dL [facility] Specific [place] 1.008 1.003 - [facility] Urine 1.035 [facility] Blood Urine Negative NEG [facility] pH Urine 8.0 (H) 5.0 - 7.0 [facility] pH [facility] [place] [facility] Protein Albumin 100 (A) NEG mg/dL [facility] Urine [facility] Urobilinogen Normal 0.0 - 2.0 [facility] mg/dL mg/dL [facility] Nitrite Urine Negative NEG [facility] Leukocyte Negative NEG [facility] Esterase Urine [facility] Source Clean catch [facility] urine [facility] WBC Urine 1 0 - 2 [facility] /HPF [facility] RBC Urine 0 0 - 2 [facility] /HPF [facility] Squamous <1 0 - 1 [facility] Epithelial /HPF /HPF [place] Urine [facility] [facility] Specimen Anatomical Collection Method Collection Time Receive d Time (Source) Location / / Volume Laterality Urine specimen URINE SPECIMEN 02/02/2014 2:00 PM 02/02 2:12 (specimen) OBTAINED BY CLEAN CDT PM CDT CATCH PROCEDURE / Unknown Caitlin Owens MD LAB - URINE ORDERABLES Performing Organization Address City/State/ZIP Code Phon e Number [phone] [place] [address] LABS (ABNORMAL) Glucose by meter (02/02/2014 1:59 PM CDT) athologist Signature Glucose 115 (H) 60 - 99 POINT OF CARE mg/dL TEST, GLUCOSE Specimen Anatomical Collection Method Collection Time Receive d Time (Source) Location / / Volume Laterality 02/02/2014 1:59 PM 4 2:05 CDT PM CDT Migel Merchant MD LAB - BEAKER POCT Performing Organization Address City/[facility]/ZIP Code Phon e Number [facility] POINT OF CARE TEST, GLUCOSE POINT OF CARE TEST, GLUCOSE EKG 12-lead, tracing only (02/02/2014 1:58 PM CDT) [facility] gist Method Time Signature Interpretation ECG Click [...] dose, When verbally ordered by the prescriber. [place] throat with 1-4 sprays 5 minutes prior [...] Colby RN) 2223 (Given - Provider: Annmarie Colyb RN) 1-5 Units, Subcutaneous, AT BEDTIME, Fir [...] mg 2028 (Not Gi isael - Provider: Lynen Gatica [facility] - Reason: Other - Comment: Dose already [...] draw. documented in this encounter Care Teams Design Release Engineer Relationship Specialty Start Date End Date Momo Forbes PCP - General [facility] Practice 01/02/14 [facility] [address] [place], [place] [id number] Ingrid Santana, RN Registered Nurse Transplant 02/10/12 10/01/15 documented as of this encounter
--- OUTSIDE RECORDS SUMMARY | 2022-04-29 12:26 | XMS_ITS | Encounter Summary ---
:1950 Author Organization [place] Address [address] [place] [address]. [place] [address] Care Team Providers Name Role Phone Toña Jones MD Primary Care Provider Ingrid Santana RN Unavailable Momo Forbes Primary Care Provider Encounter Details Date Type Department Care Team Description 02/18/2012 Abstract [facility] [address] [place] [phone] Social History Tobacco Use Types Packs/Day [...] filedocumented in this encounter Care Teams Lead Software Development Engineer Relationship Specialty Start Date End Date Toña Jones MD PCP - General Nephrology 11/25/11 01/01/14 Momo Forbes PCP - General Family Practice 01/02/[address] [place] [address] Ingrid Santana RN Registered Nurse Transplant 02/10/12 10/01/15 documented as of this encounter
--- OUTSIDE RECORDS SUMMARY | 2022-04-29 12:26 | XMS_ITS | Encounter Summary ---
:1950 Author Organization [place] Address [address] [place] [address] Care Team Providers Name Role Phone Toña Jones MD Primary Care Provider Ingrid Santana RN Unavailable Encounter Details Date Type Department Care Team Description 11/05/2013 Results Only LABORATORY RESULTS Barbara Bradley MD [address] [place], [place] [address] Social History Tobacco Use [...] Phon e Number [facility] Immunology/Histocompatabil [place], [place] [address] ity [facility] [address] [facility] [address] Building, Room 3-580 HISTOTRAC documented in this encounter Visit Diagnoses Not on filedocumented in this encounter Care Teams Health Insurance Agent Relationship Specialty Start Date End Date Toña Jones MD PCP - General Nephrology 11/25/11 01/01/14 Ingrid Santana RN Registered Nurse Transplant 02/10/12 10/01/15 documented as of this encounter
--- OUTSIDE RECORDS SUMMARY | 2022-04-29 12:26 | XMS_ITS | Encounter Summary ---
:1950 Author Organization [place] Address [address] [place] [address] Care Team Providers Name Role Phone Ingrid Santana RN Unavailable Momo Forbes Primary Care Provider Encounter Details Date Type Department Care Team Description 01/20/2014 Orders Only [facility], [facility], [facility] jm [place] [address] [phone] [place] [address] 592 [place] [address] (Wo rk) Social History Tobacco [...] Signature Tacrolimus Last 02/14/2014 [facility] Dose 2030 [facility] Tacrolimus 5.9 5.0 - [facility] Level 15.0 ug/L [facility] Comment: Tacrolimus Reference Range Kidney Transplant [...] [facility] [address] [place] [address] [facility] documented in this encounter Visit Diagnoses Not on filedocumented in this encounter Care Teams Care Technician Relationship Specialty Start Date End Date Momo Forbes PCP - General Family Practice 01/02/14 [facility] [address] [place] [phone] Ingrid Santana, RN Registered Nurse Transplant 02/10/12 documented as of this encounter
--- OUTSIDE RECORDS SUMMARY | 2022-04-29 12:26 | XMS_ITS | Encounter Summary ---
:1950 Author Organization [place] Address [address] [place] [address] Care Team Providers Name Role Phone Ingrid Santana RN Unavailable Momo Forbes Primary Care Provider Encounter Details Date Type Department Care Team Description 01/21/2014 Results Only LABORATORY RESULTS Mingo Dangelo MD [address] [facility] [address] [place] [address] (Wo rk) Social History Tobacco [...] HLA Lukasz Class I Single Antigen (01/21/2014) [facility] Method Time Signature SA1 Test SA [...] Phon e Number [facility] Immunology/Histocompatabil [place], [place] [address] ity [facility] [address], Room 3-580 HISTOTRAC documented in this encounter Visit Diagnoses Not on filedocumented in this encounter Care Teams Transportation Project Manager Relationship Specialty Start Date End Date Momo Forbes PCP - General Family Practice 01/02/14 [facility] [address] [place] [address] Ingrid Santana, RN Registered Nurse Transplant 02/10/12 10/01/15 documented as of this encounter
--- OUTSIDE RECORDS SUMMARY | 2022-04-29 12:26 | XMS_ITS | Encounter Summary ---
:1950 Author Organization [place] Address [address] [place] [address] Care Team Providers Name Role Phone Toña Jones MD Primary Care Provider Ingrid Santana RN Unavailable Encounter Details Date Type Department Care Team Description 07/30/2013 Results Only LABORATORY RESULTS Mingo Dangelo MD [address] [facility] [address] [place] [address] (Wo rk) Social History Tobacco [...] / Volume Laterality 07/30/2013 07/31/2013 2:10 PM PULL OVER MACHINE OPERATOR Mingo Dangelo MD LAB - IMMUNOLOGY ORDERABLES Performing Organization Address City/State/ZIP Code Phon e Number [facility] Immunology/Histocompatabil [place], [place] [address] ity [facility] [address], Room 3-580 HISTOTRAC documented in this encounter Visit Diagnoses Not on filedocumented in this encounter Care Teams Trial Court Judge Relationship Specialty Start Date End Date Toña Jones MD PCP - General Nephrology 11/25/11 01/01/14 Ingrid Santana RN Registered Nurse Transplant 02/10/12 10/01/15 documented as of this encounter
--- OUTSIDE RECORDS SUMMARY | 2022-04-29 12:26 | XMS_ITS | Encounter Summary ---
:1950 Author Organization [place] Address [address] [place] [address]. [place] [address] Care Team Providers Name Role Phone Toña [...] - HIM SCAN - 09/25/2012 8:26 AM OPERATIONS DISPATCHER ARCHIVE documented in this encounter Results LAB RESULT - HIM SCAN - ARCHIVE (09/25/2012 8:26 AM OPERATIONS DISPATCHER) Specimen (Source) Anatomical Location Collection Method / Collectio n Time Received Time / Laterality Volume Narrative This result has an attachment that is no t available. Marcela Cordero MD LAB - BLOOD ORDERABLES documented in this encounter Visit Diagnoses Not on filedocumented in this encounter Care Teams Sample Display Preparer Relationship Specialty Start Date End Date Toña Jones MD PCP - General Nephrology 11/25/11 01/01/14 Momo Forbes PCP - General Family Practice 01/02/14 [facility] [address] [place] [address] Ingrid Santana, RN Registered Nurse Transplant 02/10/12 10/01/15 documented as of this encounter
--- OUTSIDE RECORDS SUMMARY | 2022-04-29 12:26 | XMS_ITS | Encounter Summary ---
:1950 Author Organization [place] Address [facility] [address] Care Team Providers Name Role Phone Ingrid Santana RN Unavailable Momo Forbes Primary Care Provider Encounter Details Date Type Department Care Team Description 01/21/2014 Results Only LABORATORY RESULTS Mingo [facility]angelo MD [address] [facility] [address] [place] [address] (Wo rk) Social History Tobacco [...] Results HLA Flow T/B Crossmatch Allo (01/21/2014) [facility] Method Time Signature Crossmatch Donor:[id number], ?Crossmatch Date:02/02/2014 HISTOTRAC Result (Note) Serum Date [...] Phon e Number [facility] Immunology/Histocompatabil [place], [place] [address] ity [facility] [address] [facility] [address] Building, Room 3-580 HISTOTRAC documented in this encounter Visit Diagnoses Not on filedocumented in this encounter Care Teams Type Photography Supervisor Relationship Specialty Start Date End Date Momo Forbes PCP - General Family Practice 01/02/14 [facility] [address] [place] [address] Ingrid Santana, RN Registered Nurse Transplant 02/10/12 10/01/15 documented as of this encounter
--- OUTSIDE RECORDS SUMMARY | 2022-04-29 12:26 | XMS_ITS | Encounter Summary ---
:1950 Author Organization [place] Address [address] [place] [address] Care Team Providers Name Role Phone Toña [...] HLA Lukasz Class I Single Antigen (04/16/2013) [facility] gist Method Time Signature SA1 [...] Phon e Number [facility] Immunology/Histocompatabil [place], [place] [address] [facility] [address], Room 3-580 HISTOTRAC documented in this encounter Visit Diagnoses Not on filedocumented in this encounter Care Teams Editing Clerk Relationship Specialty Start Date End Date Toña Jones MD PCP - General Nephrology 11/25/11 01/01/14 Ingrid Santana RN Registered Nurse Transplant 02/10/12 10/01/15 documented as of this encounter
--- OUTSIDE RECORDS SUMMARY | 2022-04-29 12:26 | XMS_ITS | Encounter Summary ---
:1950 Author Organization [place] Address [address] [place] [address] Care Team Providers Name Role Phone Toña Jones MD Primary Care Provider Ingrid Santana RN Unavailable Reason for Visit (Routine) - Closed Specialty Diagnoses / Procedures Referred By Contact Refer red To Contact Radiology Diagnoses NM MPI SCAN Procedure Notes: UNSPECIFIED ESSENTIAL HYPERTENSION,PREOPERATIVE EXAMINATION, UNSPECIFIED, [facility] Procedures RADIOLOGY [address] [place] [address] Phone: Referral ID Status Reason Start Date Expiration Date Visits Requ ested Visits Authorized [id number] Closed 02/11/2012 02/10/2013 1 1 Encounter Details Date Type Department Care Team Description 02/15/[address] [facility] Barbara Bradley ESRD (end stage [facility] Imaging MD Monae renal disease) (H) [address] [facility] [address] [place] [address] [phone] Social History Tobacco Use Types Packs/Day Years [...] 0 UNITS/ML SC SOLN Subcutaneous every evening sertraline (ZOLOFT) Take 100 mg by mouth 0 04/20/2016 100 MG tablet daily. aspirin 81 MG tablet Take 1 tablet by mouth 0 02/18/2014 daily. B haucfnw-Q-pxwro acid Take 1 capsule by mouth 0 02/08/2014 (NEPHROCAPS) 1 MG daily. capsule lisinopril Take 40 mg by mouth 0 02/08 (PRINIVIL,ZESTRIL) 40 daily MG tablet METOPROLOL SUCCINATE Take 100 mg by mouth 0 02/08/2014 PO daily zolpidem (AMBIEN) 10 Take 10 mg by mouth 0 03/06/2014 MG tablet nightly as needed Per patient on hold documented as of this encounter Plan of Treatment Not on filedocumented as of this encounter Visit Diagnoses Diagnosis ESRD (end stage renal disease) (H) End stage renal disease documented in this encounter Care Teams Hospital Ward Clerk Relationship Specialty Start Date End Date Toña Jones MD PCP - General Nephrology 11/25/11 01/01/14 Ingrid Santana RN Registered Nurse Transplant 02/10/12 10/01/15 documented as of this encounter
--- OUTSIDE RECORDS SUMMARY | 2022-04-29 12:26 | XMS_ITS | Encounter Summary ---
:1950 Author Organization [place] Address [address] [place] [address] Care Team Providers Name Role Phone Toña Jones MD Primary Care Provider Ingrid Santana RN Unavailable Encounter Details Date Type Department Care Team Description 11/05/2013 Results Only LABORATORY RESULTS Barbara Bradley MD [address] [place], [place] [address] Social History Tobacco Use [...] I Single Antigen (11/05/2013 7:20 AM CDT) [facility] Method Time Signature SA1 Test SA [...] Phon e Number [facility] Immunology/Histocompatabil [place], [place] [address] ity [facility] [address] [facility] [address] Building, Room 3-580 HISTOTRAC documented in this encounter Visit Diagnoses Not on filedocumented in this encounter Care Teams Mortar Man Relationship Specialty Start Date End Date Toña Jones MD PCP - General Nephrology 11/25/11 01/01/14 Ingrid Santana, RN Registered Nurse Transplant 02/10/12 10/01/15 documented as of this encounter
--- OUTSIDE RECORDS SUMMARY | 2022-04-29 12:26 | XMS_ITS | Encounter Summary ---
:1950 Author Organization [place] Address [address] [place] [address] Care Team Providers Name Role Phone Toña Jones MD Primary Care Provider Ingrid Santana RN Unavailable Encounter Details Date Type Department Care Team Description 07/03/2012 Results Only LABORATORY RESULTS Barbara Bradley MD [address] [place], [place] [address] Social History Tobacco Use [...] HLA Lukasz Class I Single Antigen (07/03/2012) [facility] gist Method Time Signature SA1 Test [...] / Volume Laterality 07/03/2012 07/05/2012 1:57 PM SIGN PAINTER Barbara Bradley MD LAB - IMMUNOLOGY ORDERABLES Performing Organization Address City/State/ZIP Code Phon e Number [facility] Immunology/Histocompatabil [place], [place] [address] ity [facility] [address], Room [address]-580 HISTOTRAC documented in this encounter Visit Diagnoses Not on filedocumented in this encounter Care Teams Nutrition Manager Relationship Specialty Start Date End Date Toña Jones MD PCP - General Nephrology 11/25/11 01/01/14 Ingrid Santana RN Registered Nurse Transplant 02/10/12 10/01/15 documented as of this encounter
--- OUTSIDE RECORDS SUMMARY | 2022-04-29 12:26 | XMS_ITS | Encounter Summary ---
:1950 Author Organization [place] Address [address] [place] [address] Care Team Providers Name Role Phone Ingrid Santana RN Unavailable Momo Forbes Primary Care Provider Encounter Details Date Type Department Care Team Description 01/21/2014 Results Only LABORATORY RESULTS Mingo Dangelo MD [address] [facility] [address] [place] [address] (Wo rk) Social History Tobacco [...] HLA Lukasz Class II Single Antigen (01/21/2014) [facility] Method Time Signature SA2 Test SA [...] Phon e Number [facility] Immunology/Histocompatabil [place], [place] [address] ity [facility] [address], Room 3-580 HISTOTRAC documented in this encounter Visit Diagnoses Not on filedocumented in this encounter Care Teams Purchasing Manager Relationship Specialty Start Date End Date Momo Forbes PCP - General Family Practice 01/02/14 [facility] [address] [place] [address] Ingrid Santana, RN Registered Nurse Transplant 02/10/12 10/01/15 documented as of this encounter
--- OUTSIDE RECORDS SUMMARY | 2022-04-29 12:26 | XMS_ITS | Encounter Summary ---
:1950 Author Organization [place] Address [address] [place] [address] Care Team Providers Name Role Phone Toña Jones MD Primary Care Provider Ingrid Santana RN Unavailable Encounter Details Date Type Department Care Team Description 04/13/2012 Results Only LABORATORY RESULTS Mingo Dangelo MD [address] [facility] [address] [place] [address] (Wo rk) Social History Tobacco [...] HLA Lukasz Class II Single Antigen (04/13/2012) [facility] Method Time Signature SA2 Test Single [...] Phon e Number [facility] Immunology/Histocompatabil [place], [place] [address] ity [facility] [address], Room [address]-580 HISTOTRAC documented in this encounter Visit Diagnoses Not on filedocumented in this encounter Care Teams Plane Tender Relationship Specialty Start Date End Date Toña Jones MD PCP - General Nephrology 11/25/11 01/01/14 Ingrid Santana RN Registered Nurse Transplant 02/10/12 10/01/15 documented as of this encounter
--- OUTSIDE RECORDS SUMMARY | 2022-04-29 12:26 | XMS_ITS | Encounter Summary ---
:1950 Author Organization [place] Address [facility] [place] [address] Care Team Providers Name Role Phone Toña Jnoes MD Primary Care Provider Ingrid Santana RN Unavailable Encounter Details Date Type Department Care Team Description 02/28/2013 Orders Only [facility] Molly Sanderson Organ transplant [address] [facility] candidate (Primary Dx) [place] [phone] Social History Tobacco Use Types Packs/Day Years [...] status documented in this encounter Care Teams Wet Plant Operator Relationship Specialty Start Date End Date Toña Jones MD PCP - General Nephrology 11/25/11 01/01/14 Ingrid Santana RN Registered Nurse Transplant 02/10/12 10/01/15 documented as of this encounter
--- OUTSIDE RECORDS SUMMARY | 2022-04-29 12:26 | XMS_ITS | Encounter Summary ---
:1950 Author Organization [place] Address [address] [place] [address] Care Team Providers Name Role Phone Toña Jones MD Primary Care Provider Ingrid Santana RN Unavailable Encounter Details Date Type Department Care Team Description 01/17/2013 Results Only LABORATORY RESULTS Barbara Bradley MD [address] [place], [place] [address] Social History Tobacco Use [...] HLA Lukasz Class II Single Antigen (01/17/2013) [facility] Method Time Signature SA2 Test Single [...] Phon e Number [facility] HLA LABORATORY Immunology/Histocompatabil [place], [place] [address] ity [facility] [address], Room 3-580 HISTOTRAC documented in this encounter Visit Diagnoses Not on filedocumented in this encounter Care Teams Petrologist Relationship Specialty Start Date End Date Toña Jones MD PCP - General Nephrology 11/25/11 01/01/14 Ingrid Santana RN Registered Nurse Transplant 02/10/12 10/01/15 documented as of this encounter
--- OUTSIDE RECORDS SUMMARY | 2022-04-29 12:26 | XMS_ITS | Encounter Summary ---
:1950 Author Organization [place] Address [facility] [place] [address] Care Team Providers Name Role Phone Toña [...] on filedocumented in this encounter Care Teams Flower Shop Laborer/Designer Relationship Specialty Start Date End Date Toña Jones MD PCP - General Nephrology 11/25/11 01/01/14 Momo Forbes PCP - General Family Practice 01/02/14 [facility] [address] [place] [address] Ingrid Santana, RN Registered Nurse Transplant 02/10/12 10/01/15 documented as of this encounter
--- OUTSIDE RECORDS SUMMARY | 2022-04-29 12:26 | XMS_ITS | Encounter Summary ---
:1950 Author Organization [place] Address [address] [place] [address] Care Team Providers Name Role Phone Ingrid Santana RN Unavailable oMmo Forbes Primary Care Provider Reason for Visit Reason Onset Date Comments Pre Visit Planning - Done 01/30/2014 EKG: pre op: [age] yo M, here for continued clearance for possib le kidney txp. Encounter Details Date Type Department Care Team Description 01/30/2014 PRE VISIT [facility] Barbara Bradley Pre Visit Planning - Physicians Orestes Licona MD Done (EKG: pre op: 63 [address] [place], [place] [address] continued clearance 4th Floor, Clinic 4B for possible kidney [facility] txp.) [address] [place] [phone] Social History Tobacco Use Types Packs/Day Years [...] On HD since Aug 2011. No past TX, stress tests or coronary angiogorams. No chest [...] disease documented in this encounter Care Teams Grants Specialist Relationship Specialty Start Date End Date Momo Forbes PCP - General Family Practice 01/02/14 [facility] [address] [place] [address] Ingrid Santana, RN Registered Nurse Transplant 02/10/12 10/01/15 documented as of this encounter
--- OUTSIDE RECORDS SUMMARY | 2022-04-29 12:26 | XMS_ITS | Encounter Summary ---
:1950 Author Organization [place] Address [facility] [place] [address] Care Team Providers Name Role Phone Toña Jones MD Primary Care Provider Ingrid Santana RN Unavailable Reason for Visit Reason Onset Date Comments Transplant 12/19/2013 Kidney waitlist appo intments Encounter Details Date Type Department Care Team Description 12/19/2013 Telephone The Transplant Edda Nash, Provider Transplant (Kidney 2nd Floor, Clinic 2A waitlist appointments) Tommy [address] [phone] Social History Tobacco Use Types Packs/Day Years [...] on filedocumented in this encounter Care Teams Hair Stylist Relationship Specialty Start Date End Date Toña Jones MD PCP - General Nephrology 11/25/11 01/01/14 Ingrid Santana, RN Registered Nurse Transplant 02/10/12 10/01/15 documented as of this encounter
--- OUTSIDE RECORDS SUMMARY | 2022-04-29 12:26 | XMS_ITS | Encounter Summary ---
:1950 Author Organization [place] Address [facility] [place] [address] Care Team Providers Name Role Phone Toña [...] (madeleine betes mellitus), type 2 (H) Building [address] [place] [phone] Social History Tobacco Use Types Packs/Day Years [...] uncontrolled documented in this encounter Care Teams Geriatric Psychiatrist Relationship Specialty Start Date End Date Toña Jones MD PCP - General Nephrology 11/25/11 01/01/14 Ingrid Santana RN Registered Nurse Transplant 02/10/12 10/01/15 documented as of this encounter
--- OUTSIDE RECORDS SUMMARY | 2022-04-29 12:26 | XMS_ITS | Encounter Summary ---
:1950 Author Organization [place] Address [address] [place] [address] Care Team Providers Name Role Phone Toña Jones MD Primary Care Provider Ingrid Santana RN Unavailable Encounter Details Date Type Department Care Team Description 07/03/2012 Results Only LABORATORY RESULTS Barbara Bradley MD [address] [place], [place] [address] Social History Tobacco Use [...] HLA Lukasz Class II Single Antigen (07/03/2012) [facility] gist Method Time Signature SA2 Test Single [...] / Volume Laterality 07/03/2012 07/05/2012 1:57 PM VACUUM CLEANER REPAIRER Barbara Bradley MD LAB - IMMUNOLOGY ORDERABLES Performing Organization Address City/State/ZIP Code Phon e Number [facility] Immunology/Histocompatabil [place], [place] [address] ity [facility] [address], Room 3-580 HISTOTRAC documented in this encounter Visit Diagnoses Not on filedocumented in this encounter Care Teams Salesforce Developer Relationship Specialty Start Date End Date Toña Jones MD PCP - General Nephrology 11/25/11 01/01/14 Ingrid Santana RN Registered Nurse Transplant 02/10/12 10/01/15 documented as of this encounter
--- OUTSIDE RECORDS SUMMARY | 2022-04-29 12:26 | XMS_ITS | Encounter Summary ---
:1950 Author Organization [place] Address [facility] [place] [address] Care Team Providers Name Role Phone Toña [...] HLA Lukasz Class II Single Antigen (04/16/2013) [facility] gist Method Time Signature SA2 Test [...] Phon e Number [facility] HLA LABORATORY Immunology/Histocompatabil [place], [place] [address] [facility] [address], Room 3-580 HISTOTRAC documented in this encounter Visit Diagnoses Not on filedocumented in this encounter Care Teams Marketing Database Consultant Relationship Specialty Start Date End Date Toña Jones MD PCP - General Nephrology 11/25/11 01/01/14 Ingrid Santana RN Registered Nurse Transplant 02/10/12 10/01/15 documented as of this encounter
--- OUTSIDE RECORDS SUMMARY | 2022-04-29 12:26 | XMS_ITS | Encounter Summary ---
:1950 Author Organization [place] Address [address] [place] [address] Care Team Providers Name Role Phone Toña Jones MD Primary Care Provider Ingrid Santana RN Unavailable Encounter Details Date Type Department Care Team Description 07/30/2013 Results Only LABORATORY RESULTS Mingo Dangelo MD [address] [facility] [address] [place] [address] (Wo rk) Social History Tobacco [...] HLA Lukasz Class I Single Antigen (07/30/2013) [facility] Method Time Signature SA1 Test Single Antigen [...] / Volume Laterality 07/30/2013 07/31/2013 2:10 PM TUBE DRAWING SUPERVISOR Mingo Dangelo MD LAB - IMMUNOLOGY ORDERABLES Performing Organization Address City/State/ZIP Code Phon e Number [facility] Immunology/Histocompatabil [place], [place] [address] ity [facility] [address] Building, Room 3-580 HISTOTRAC documented in this encounter Visit Diagnoses Not on filedocumented in this encounter Care Teams Leasing Assistant Relationship Specialty Start Date End Date Toña Jones MD PCP - General Nephrology 11/25/11 01/01/14 Ingrid Santana RN Registered Nurse Transplant 02/10/12 10/01/15 documented as of this encounter
--- OUTSIDE RECORDS SUMMARY | 2022-04-29 12:26 | XMS_ITS | Encounter Summary ---
:1950 Author Organization [place] Address [facility] [place] [address] Care Team Providers Name Role Phone Toña Jones MD Primary Care Provider Ingrid Santana RN Unavailable Encounter Details Date Type Department Care Team Description 08/25/2012 Results Only LABORATORY RESULTS Barbara Bradley MD [address] [place], [place] [address] Social History Tobacco Use [...] AM Results f or this CROSSMATCH ALLO DYNAMOMETER MECHANIC procedure ar e in the results section. documented in this encounter Results HLA Flow T/B Crossmatch Allo (08/25/2012 9:49 AM DYNAMOMETER MECHANIC) [facility] Method Time Signature Crossmatch Donor:ABRAHAM HICKEY ? [...] Laterality 08/25/2012 9:49 AM 01/04/201 3 9:06 DYNAMOMETER MECHANIC AM DYNAMOMETER MECHANIC Barbara Bradley MD LAB - IMMUNOLOGY ORDERABLES Performing Organization Address City/State/ZIP Code Phon e Number [facility] LABORAT[facility] Immunology/Histocompatabil [place], [place] [address] ity [facility] [address], Room 3-580 HISTOTRAC documented in this encounter Visit Diagnoses Not on filedocumented in this encounter Care Teams Non Destructive Evaluation Specialist Relationship Specialty Start Date End Date Toña Jones MD PCP - General Nephrology 11/25/11 01/01/14 Ingrid Santana, RN Registered Nurse Transplant 02/10/12 10/01/15 documented as of this encounter
--- OUTSIDE RECORDS SUMMARY | 2022-04-29 12:26 | XMS_ITS | Encounter Summary ---
:1950 Author Organization [place] Address [facility] [place] [address] Care Team Providers Name Role Phone Toña [...] on filedocumented in this encounter Care Teams Adventure Therapist Relationship Specialty Start Date End Date Toña Jones MD PCP - General Nephrology 11/25/11 01/01/14 Momo Forbes PCP - General Family Practice 01/02/[address] [facility] [address] [place] [address] Ingrid Santana, RN Registered Nurse Transplant 02/10/12 10/01/15 documented as of this encounter
--- OUTSIDE RECORDS SUMMARY | 2022-04-29 12:26 | XMS_ITS | Encounter Summary ---
:1950 Author Organization [place] Address [facility] [place] [address] Care Team Providers Name Role Phone Toña Jones MD Primary Care Provider Ingrid Santana RN Unavailable Reason for Visit (Routine) - Closed Specialty Diagnoses / Procedures Referred By Contact Refer red To Contact Cardiology Diagnoses NM STRESS LEXISCAN Procedure Notes: UNSPECIFIED ESSENTIAL HYPERTENSION,PREOPERATIVE EXAMINATION, UNSPECIFIED, Zz Uu Electrocard Procedures RADIOLOGY [address] [place] [address] Referral ID Status Reason Start Date Expiration Date Visits Requ ested Visits Authorized [id number] Closed 02/11/2012 02/10/2013 1 1 Encounter Details Date Type Department Care Team Description 02/15/2012 Hospital Encounter ZSarah [facility] ELECTROCARD Bradley, [place] [address] [facility] [place] [address] [address] [place], [place] [address] Social History Tobacco Use [...] tablet by mouth 0 02/18/2014 daily. B ntgyhji-P-oeeyo acid Take 1 capsule by mouth 0 [...] Test documented in this encounter Care Teams Measurement Superintendent Relationship Specialty Start Date End Date Toña Jones MD PCP - General Nephrology 11/25/11 01/01/14 Ingrid Santana RN Registered Nurse Transplant 02/10/12 10/01/15 documented as of this encounter
--- OUTSIDE RECORDS SUMMARY | 2022-04-29 12:26 | XMS_ITS | Encounter Summary ---
:1950 Author Organization [place] Address [facility] [place] [address] Care Team Providers Name Role Phone Toña Jones MD Primary Care Provider Ingrid Santana RN Unavailable Encounter Details Date Type Department Care Team Description 07/03/2012 Results Only LABORATORY RESULTS Barbara Bradley MD [address] [place], [place] [address] Social History Tobacco Use [...] in this encounter Results Virtual Crossmatch (07/03/2012) [facility] Method Time Signature Crossmatch Donor:GEOVANYKATHARINEABRAHAM Figueredo ? Crossmatch Date:07/24/2012 HISTOTRAC Result (Note) Serum Date ??Test ?Result ? Donor Specific Antibody ?Comments 07/03/2012 ??Class I/Virtxm1 ? DSA ?None ? 07/03/2012 ??Class II/Virtxm 1 ?DSA ?None ? Specimen (Source) Anatomical Collection Method Collection Time Re ceived Time Location / / Volume Laterality 07/03/2012 07/05/2012 1:57 PM PRINCIPAL ANDROID DEVELOPER Barbara Bradley MD LAB - IMMUNOLOGY ORDERABLES Performing Organization Address City/State/ZIP Code Phon e Number [facility] HLA LABORATORY Immunology/Histocompatabil [place], [place] [address] [facility] [address] Building, Room 3-580 HISTOTRAC documented in this encounter Visit Diagnoses Not on filedocumented in this encounter Care Teams Php Developer Relationship Specialty Start Date End Date Toña Jones MD PCP - General Nephrology 11/25/11 01/01/14 Ingrid Santana RN Registered Nurse Transplant 02/10/12 10/01/15 documented as of this encounter
--- OUTSIDE RECORDS SUMMARY | 2022-04-29 12:26 | XMS_ITS | Encounter Summary ---
:1950 Author Organization [place] Address [address] [place] [address] Care Team Providers Name Role Phone Toña Jones MD Primary Care Provider Ingrid Santana RN Unavailable Encounter Details Date Type Department Care Team Description 10/11/2012 Results Only LABORATORY RESULTS Barbara Bradley MD [address] [place], [place] [address] Social History Tobacco Use [...] HLA Lukasz Class II Single Antigen (10/11/2012) [facility] Method Time Signature SA2 Test Single [...] / Volume Laterality 10/11/2012 10/12/2012 1:03 PM DERRICK MAN Barbara Bradley MD LAB - IMMUNOLOGY ORDERABLES Performing Organization Address City/State/ZIP Code Phon e Number [facility] HLA LABORATORY Immunology/Histocompatabil [place], [place] [address] ity [facility] [address] Building, Room 3-580 HISTOTRAC documented in this encounter Visit Diagnoses Not on filedocumented in this encounter Care Teams City Alderman Relationship Specialty Start Date End Date Toña Jones MD PCP - General Nephrology 11/25/11 01/01/14 Ingrid Santana RN Registered Nurse Transplant 02/10/12 10/01/15 documented as of this encounter
--- OUTSIDE RECORDS SUMMARY | 2022-04-29 12:26 | XMS_ITS | Encounter Summary ---
:1950 Author Organization [place] Address [address] [place] [address] Care Team Providers Name Role Phone Toña Jones MD Primary Care Provider Ingrid Santana RN Unavailable Encounter Details Date Type Department Care Team Description 10/11/2012 Results Only LABORATORY RESULTS Barbara Bradley MD [address] [place], [place] [address] Social History Tobacco Use [...] HLA Lukasz Class I Single Antigen (10/11/2012) [facility] gist Method Time Signature SA1 Test [...] / Volume Laterality 10/11/2012 10/12/2012 1:03 PM PURIFICATION OPERATOR HELPER Barbara Bradley MD LAB - IMMUNOLOGY ORDERABLES Performing Organization Address City/State/ZIP Code Phon e Number [facility] HLA LABORATORY Immunology/Histocompatabil [place], [place] [address] ity [facility] [address] Building, Room 3-580 HISTOTRAC documented in this encounter Visit Diagnoses Not on filedocumented in this encounter Care Teams Tip Inserter Relationship Specialty Start Date End Date Toña Jones MD PCP - General Nephrology 11/25/11 01/01/14 Ingrid Santana RN Registered Nurse Transplant 02/10/12 10/01/15 documented as of this encounter
--- OUTSIDE RECORDS SUMMARY | 2022-04-29 12:26 | XMS_ITS | Encounter Summary ---
:1950 Author Organization [place] Address [address] [place] [address] Care Team Providers Name Role Phone Toña Jones MD Primary Care Provider Ingrid Santana RN Unavailable Reason for Visit (Routine) - Closed Specialty Diagnoses / Procedures Referred By Contact Refer red To Contact Radiology Diagnoses NM MPI LEXISCAN Procedure Notes: UNSPECIFIED ESSENTIAL HYPERTENSION,PREOPERATIVE EXAMINATION, UNSPECIFIED, U[facility] Nuclear Medicine Procedures RADIOLOGY [address] [place] [address] Phone: Referral ID Status Reason Start Date Expiration Date Visits Requ ested Visits Authorized [id number] Closed 02/11/2012 02/10/2013 1 1 Encounter Details Date Type Department Care Team Description 02/15/2012 Hospital Encounter [facility] Barbara Bradley Imaging MD Monae [address] [facility] [address] [place], [place] [address] [phone] Social History Tobacco Use Types Packs/Day Years [...] tablet by mouth 0 02/18/2014 daily. B obywkyp-X-ibqqj acid Take 1 capsule by mouth 0 [...] on filedocumented in this encounter Care Teams Wellness Instructor Relationship Specialty Start Date End Date Toña Jones MD PCP - General Nephrology 11/25/11 01/01/14 Ingrid Santana RN Registered Nurse Transplant 02/10/12 10/01/15 documented as of this encounter
--- OUTSIDE RECORDS SUMMARY | 2022-04-29 12:26 | XMS_ITS | Encounter Summary ---
:1950 Author Organization [place] Address [address] [place] [address] Care Team Providers Name Role Phone Toña [...] HLA Lukasz Class I Single Antigen (01/17/2013) [facility] gist Method Time Signature SA1 Test [...] Phon e Number [facility] HLA LABORATORY Immunology/Histocompatabil [place], [place] [address] ity [facility] [address], Room [address]-580 HISTOTRAC documented in this encounter Visit Diagnoses Not on filedocumented in this encounter Care Teams Pharmacy Technician Instructor Relationship Specialty Start Date End Date Toña Jones MD PCP - General Nephrology 11/25/11 01/01/14 Ingrid Santana RN Registered Nurse Transplant 02/10/12 10/01/15 documented as of this encounter
--- OUTSIDE RECORDS SUMMARY | 2022-04-29 12:26 | XMS_ITS | Encounter Summary ---
:1950 Author Organization [place] Address [facility] [place] [address] Care Team Providers Name Role Phone Toña [...] on filedocumented in this encounter Care Teams Buffet Manager Relationship Specialty Start Date End Date Toña Jones MD PCP - General Nephrology 11/25/11 01/01/14 Momo Forbes PCP - General Family Practice 01/02/14 [facility] [address] [place] [address] Ingrid Santana, RN Registered Nurse Transplant 02/10/12 10/01/15 documented as of this encounter
--- OUTSIDE RECORDS SUMMARY | 2022-04-29 12:26 | XMS_ITS | Encounter Summary ---
:1950 Author Organization [place] Address [address] [facility] [place] [address] Care Team Providers Name Role Phone Toña [...] Ump Sot Surgery 2nd Floor, Clinic 2A [place] [phone] Referral ID Status Reason Start Date Expiration Date Visits Requ ested Visits Authorized [id number] Closed 12/10/2013 06/08/2014 1 1 Consultation - Closed Specialty Diagnoses / Procedures Referred By Contact Refer red To Contact Diagnoses Organ transplant candidate ESRD (end stage renal disease) on dialysis (H) DM (diabetes mellitus), type 2 (H) Zz [facility] Sot Surgery [facility] Floor, [facility] [address] [phone] Referral ID Status Reason Start Date Expiration Date Visits Requ ested Visits Authorized [id number] Closed 12/10/2013 06/08/2014 1 1 Encounter Details Date Type Department Care Team Description 12/07/2013 Orders Only Transplant Surgery Nazia March LPN Organ transplant candidate (Primary Dx); Clinic Screening for other and unsp ecified cardiovascular conditions; 2nd Floor, Clinic 2A ESRD (end stage renal diseas e) on dialysis (H); Tommy Wilburn DM (madeleine betes mellitus), type 2 (H) [address] [phone] Social History Tobacco Use Types [...] uncontrolled documented in this encounter Care Teams Professional Development Manager Relationship Specialty Start Date End Date Toña Jones MD PCP - General Nephrology 11/25/11 01/01/14 Siers, Ingrid A, RN Registered Nurse Transplant 02/10/12 10/01/15 documented as of this encounter
--- OUTSIDE RECORDS SUMMARY | 2022-04-29 12:26 | XMS_ITS | Encounter Summary ---
:1950 Author Organization [place] Address [address] [place] [address] Care Team Providers Name Role Phone Toña Jones MD Primary Care Provider Ingrid Santana RN Unavailable Encounter Details Date Type Department Care Team Description 04/13/2012 Results Only LABORATORY RESULTS Mingo Dangelo MD [address] [facility] [address] [place] [address] (Wo rk) Social History Tobacco [...] HLA Lukasz Class I Single Antigen (04/13/2012) [facility] Method Time Signature SA1 Test Single [...] Phon e Number [facility] HLA LABORATORY Immunology/Histocompatabil [place], [place] [address] ity [facility] [address] Building, Room 3-580 HISTOTRAC documented in this encounter Visit Diagnoses Not on filedocumented in this encounter Care Teams Installment Loan Collector Relationship Specialty Start Date End Date Toña Jones MD PCP - General Nephrology 11/25/11 01/01/14 Ingrid Santana RN Registered Nurse Transplant 02/10/12 10/01/15 documented as of this encounter
--- OUTSIDE RECORDS SUMMARY | 2022-04-29 12:27 | XMS_ITS | Encounter Summary ---
:1950 Author Organization [place] Address [facility] hospital0 [place] [address] Care Team Providers Name Role Phone Toña Jones MD Primary Care Provider Reason for Visit Reason Onset Date Comments Patient Reminder 02/01/2012 Encounter Details Date Type Department Care Team Description 02/01/2012 PRE VISIT Nephrology Joseph Quintana, Patient Reminder 2nd Floor, Clinic 2A MD Tommy Gu[address] [place], [place] [address] [place] [address] (Wo rk) [address] [phone] Social History Tobacco Use Types Packs/Day Years [...] on filedocumented in this encounter Care Teams Etl Programmer Relationship Specialty Start Date End Date Toña Jones MD PCP - General Nephrology 11/25/11 01/01/14 documented as of this encounter
--- OUTSIDE RECORDS SUMMARY | 2022-04-29 12:27 | XMS_ITS | Encounter Summary ---
:1950 Author Organization [place] Address [facility] [place] [address] Care Team Providers Name Role Phone Toña Jones MD Primary Care Provider Ingrid Santana RN Unavailable Reason for Visit Reason Comments Heart Problem Consult prior to kidney proctor splant, needs EKG please. Encounter Details Date Type Department Care Team Description 02/10/2012 Office Visit University Barbara Bradley Unspecified es sential hypertension; [facility] Chance Licona Pre-operative clearance Heart [address] [place] Chance Shaikh [address] [facility] [phone] 4th Floor, Clinic 4B (Work) [address] [address] Social History Tobacco Use [...] Stay Well and Call Maribel Nicole RN [phone] with any questions or concerns. You are scheduled for an Adenosine Stress Test 02/15/2012: Please check into the [facility] Waiting Room at 12:15pm for this test. [...] and you need to reschedule, please call [phone]. January 2012Tuesday 1 2 3 4 5 6 7 8 9 10 11 12 13 14 15 16 17 18 19 [facility] NEW 6:30 AM (30 min.) Evaluation, [facility] The Transplant Center [facility] FULL PULMONARY FUNCTION 8:00 AM (60 min.) 2, [facility] Pfl [place] Pulmonary Function Laboratory RADIOLOGY 8:05 AM (10 min.) [email or web address] [facility] Diagnostic Imaging [facility] PREP KIDNEY/PANCREAS TX 9:00 AM (120 min.) Angela Lopez, [facility], [place], [facility] Learning Center [facility] TRANSPLANT CLASS KIDNEY 9:00 AM (90 min.) Class, [facility] Transplant [facility] Transplant [facility] DIRECTOR HARDWARE 11:00 AM (30 min.) Coordinator, [facility] Care [facility] Transplant [facility] PRE-TX KIDNEY EVAL 11:00 AM (30 min.) Donya Thomas MD Transplant Surgery LAB 11:30 AM (15 min.) [place], Op Lab [facility], Lab RADIOLOGY 1:30 PM (55 min.) [email or web address] [facility], Echocardiography 20 21 [facility] RETURN 7:00 AM (15 min.) Evaluation, [facility] Txc The Transplant Center RADIOLOGY 7:00 AM (60 min.) Uicusr2 [facility] Diagnostic Imaging CONSULT HOD 8:00 AM (60 min.) Martina Mcneill RD [facility], Nutrition Services [facility] TX SOCIAL WORK 9:00 AM (60 min.) 2, [facility] Tx Consult Room The Transplant Center [facility] PRE-TX KIDNEY EVAL 10:00 AM (60 min.) Joseph Quintana MD Nephrology [facility] PANCREAS-KIDNEY TX W/U 11:30 AM (30 min.) Barbara Bradley MD [facility] Heart 22 23 24 25 26 RADIOLOGY 12:30 PM (15 min.) Uninj [facility], Nuclear Medicine RADIOLOGY 1:15 PM (20 min.) Unr1 [facility], Nuclear Medicine RADIOLOGY 1:40 PM (30 min.) [facility] ELECTROCARDIOLOGY RADIOLOGY 3:10 PM (20 min.) Unr1 [facility], Nuclear Medicine 27 28 29 20 [...] On HD since Aug 2011. No past NM, stress tests or coronary angiogorams. No chest [...] 1 tablet by mouth daily. ??? 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 Perez MD principal gifts officer. Divisions of Cardiology [facility] Patient Care Team: Toña Jones MD as PCP - General (Nephrology) Ingrid Santana RN as Registered Nurse (Transplant) DONYA THOMAS documented in this encounter Plan of Treatment Not on filedocumented as of this encounter Visit Diagnoses Diagnosis Unspecified essential hypertension Pre-operative clearance Preoperative examination, unspecified documented in this encounter Care Teams Jack Of All Trades Relationship Specialty Start Date End Date Toña Jones MD PCP - General Nephrology 11/25/11 01/01/14 Ingrid Santana RN Registered Nurse Transplant 02/10/12 10/01/15 documented as of this encounter
--- OUTSIDE RECORDS SUMMARY | 2022-04-29 12:27 | XMS_ITS | Encounter Summary ---
:1950 Author Organization [place] Address [address] [facility] [place] [address] Care Team Providers Name Role Phone Toña Jones MD Primary Care Provider Ingrid Santana RN Unavailable Encounter Details Date Type Department Care Team Description 02/10/2012 Orders Only [facility] Anita Joshi MD Diabetes mellitus, type 2 (H); Clinic Imaging [address] [facility] RANJAN End stage renal disease (H) [place] [address] [place], [place] 1st Floor, Clinic [address]D [address] [place] [address] [address] Social History Tobacco Use Types [...] disease documented in this encounter Care Teams Building Construction Inspector Relationship Specialty Start Date End Date Toña Jones MD PCP - General Nephrology 11/25/11 01/01/14 Ingrid Santana RN Registered Nurse Transplant 02/10/12 10/01/15 documented as of this encounter
--- OUTSIDE RECORDS SUMMARY | 2022-04-29 12:27 | XMS_ITS | Encounter Summary ---
:1950 Author Organization [place] Address [address] [place] [address]. [place] [address] Care Team Providers Name Role Phone Toña Jones MD Primary Care Provider Reason for Visit Reason Comments Transplant Evaluation Kidney transplant evaluation - Diabetes, End Stage Renal Disease Encounter Details Date Type Department Care Team Description 02/08/2012 Office Visit The Transplant Edda Cardenas, Ty Blink, DM (diabetes 2nd Floor, Clinic 2A MD mellitus), type 2 (H) Tommy Wilburn (Primar y Dx) [address] [phone] Social History Tobacco Use Types Packs/Day Years [...] (willing/able to accept information): Yes Any cultural factors/mormonism beliefs that may influence understanding or compliance? [...] uncontrolled documented in this encounter Care Teams Building And Construction Manager Relationship Specialty Start Date End Date Toña Jones MD PCP - General Nephrology 11/25/11 01/01/14 documented as of this encounter
--- OUTSIDE RECORDS SUMMARY | 2022-04-29 12:27 | XMS_ITS | Encounter Summary ---
:1950 Author Organization [place] Address [address] [place] [address]. [place] [address] Care Team Providers Name Role Phone Toña [...] on filedocumented in this encounter Care Teams Labor Contract Analyst Relationship Specialty Start Date End Date Toña Jones MD PCP - General Nephrology 11/25/11 01/01/14 Momo Forbes PCP - General Family Practice 01/02/14 [facility] [address] [place] [address] Ingrid Santana, RN Registered Nurse Transplant 02/10/12 10/01/15 documented as of this encounter
--- OUTSIDE RECORDS SUMMARY | 2022-04-29 12:27 | XMS_ITS | Encounter Summary ---
:1950 Author Organization [place] Address [facility]0 [facility] [place] [address] Care Team Providers Name Role Phone Toña Jones MD Primary Care Provider Ingrid Santana RN Unavailable Reason for Visit Reason Comments Transplant Evaluation kidney Encounter Details Date Type Department Care Team Description 02/10/2012 Office Visit Nephrology Darian Joshi MD [address] [place] [phone] Pre-transplant 2nd Floor, Clinic 2A Joseph Quintana MD [address] [facility] [address] [facility] [address] [place] [address] evaluation for Tommy Wilburn chronic kidney Building disease (Primary Dx) [address] [place] [address] Social History Tobacco Use Types [...] a diuretic. Will follow up with Dr. Matrini. Discussed the risks and benefits of a [...] Dialysis Type: Incenter HD; and Dialysis unit: [facility] Primary Supportability Engineer: Dr. 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 Yes Reported, Patient B nemdyur-Z-lhvuz acid (NEPHROCAPS) 1 MG capsule Take 1 [...] NEG Ketones Urine Negative NEG (mg/dL) Specific [place] Urine 1.010 1.003 - 1.035 Blood Urine [...] Report Value: Patient Name: ELINOR GUTHRIE MR#: [id number] Specimen #: [id number] Collected: 02/08/2012 07:07 Received: 02/08/2012 09:00 Reported: 02/11/2012 14:03 Ordering Phy(s): DARIAN JOSHI TEST(S) REQUESTED: A: Factor 5 Leiden and Factor 2 by PCR B: DNA Isolation, High purity extraction SPECIMEN DESCRIPTION: Blood METHODOLOGY: The regions of genomic DNA containing the L3031K Factor 5 gene mutation (Factor V Leiden) and the Factor 2(Prothrombin J40488F) gene mutation were simultaneously amplified using the polymerase chain reaction. The amplified products were digested with restriction endonuclease TaqI and products were analyzed by gel electrophoresis. RESULTS: FACTOR 5-LEIDEN RESULTS: Mutation analyzed: 1691G>A Factor 5 Mutation Interpretation: ABSENT Factor 5 Mutation genotype: G/G FACTOR 2/PROTHROMBIN RESULTS: Mutation analyzed: 34136Y>A Factor 2 Mutation Interpretation: ABSENT Factor 2 Mutation genotype: G/G INTERPRETATION: The patient is negative for the Factor 5 mutation and negative for the Factor 2 mutation. This test was developed and its performance determined by the [facility]. It has not [...] By: Liliya Stone MD TESTING LAB LOCATION: [address] [address] COLLECTION SITE: Client: [facility] Location: [facility]) HLA LUKASZ CLASS I SINGLE ANTIGEN Collection [...] of an antiphospholipid syndrome, recommend anticardiolipin and kezj-5-hoyjmwthdwkl (IgG and IgM) antibody tests. Dee Duenas M.D. [phone] 02-09-2012. APTT'S: Seconds Reagent = Stago LS [...] Range Ventricular Rate 60 Atrial Rate 60 UT Interval 186 QRS Duration 104 QT 440 QTc 440 P Delevan 36 R AXIS 0 T Delevan 36 Interpretation ECG Sinus rhythm Interpretation ECG [...] Function Test Value: Name: ELINOR GUTHRIE ID: [id number] Doctor: DONYA THOMAS Height: 72.00 in Age: [...] INTERPRETATION: The FVC, FEV1, FEV1/FVC ratio and NDA99-63% are within normal limits. The inspiratory flow [...] 02/10/2012 10:00 AM CDT >> AUSTEN FAUSTIN [facility] Feb 10, 2012 9:54 AM Took igor cc, reviewed meds and allergies documented in this encounter Plan of Treatment Not on filedocumented as of this encounter Visit Diagnoses Diagnosis Pre-transplant evaluation for chronic ki dney disease - Primary Other specified pre-operative examinatio n documented in this encounter Care Teams Do All Operator Relationship Specialty Start Date End Date Toña Jones MD PCP - General Nephrology 11/25/11 01/01/14 Ingrid Santana RN Registered Nurse Transplant 02/10/12 10/01/15 documented as of this encounter
--- OUTSIDE RECORDS SUMMARY | 2022-04-29 12:27 | XMS_ITS | Encounter Summary ---
:1950 Author Organization [place] Address [address] [place] [address]. [place] [address] Care Team Providers Name Role Phone Toña [...] on filedocumented in this encounter Care Teams Fork Lift Truck Operator Relationship Specialty Start Date End Date Toña Jones MD PCP - General Nephrology 11/25/11 01/01/14 Momo Forbes PCP - General Family Practice 01/02/14 [facility] [address] [place] [address] Ingrid Santana, RN Registered Nurse Transplant 02/10/12 10/01/15 documented as of this encounter
--- OUTSIDE RECORDS SUMMARY | 2022-04-29 12:27 | XMS_ITS | Encounter Summary ---
:1950 Author Organization [place] Address [facility] [place] [address] Care Team Providers Name Role Phone Toña Jones MD Primary Care Provider Blayne Santana RN Unavailable Reason for Visit Reason Comments Transplant Evaluation Encounter Details Date Type Department Care Team Description 02/08/2012 Office Visit Transplant Surgery Jesus Cardenas, DM (di abetes mellitus), type 2 (H); Clinic End stage renal disease (H) 2nd Floor, Clinic [address]A [address] [phone] Social History Tobacco Use Types Packs/Day Years [...] from the original note were not included. [facility] Consult Note Date of : 1950, [...] Take 1 tablet by mouth daily. B qtntktw-M-lfvsv acid (NEPHROCAPS) 1 MG capsule Take 1 [...] Test 02/08/12 0725 INR 1.11 F2MAR -- [id number] -- Lipid Profile: Cholesterol Date Value Range [...] 09, 2012 3:21 PM Pre Abdominal Organ Tank Builder Evaluation Note: present: Dr. Jesus Cardeans Attendees: self Type of transplant: kidney Required Topic(s) Discussed: Evaluation notification document, SRTR data, Multiple wait list brochure, OVEN ROASTER, Evaluation/approval process, Selection committee process, Wait list [...] spent with patient: 15 minutes -- Nurse Tank Builder Pager [phone] BLAYNE SANTANA -- Nurse Tank Builder Pager [phone] >> Lena Sánchez RN Tue Feb 08, [...] disease documented in this encounter Care Teams Private Eye Relationship Specialty Start Date End Date Toña Jones MD PCP - General Nephrology 11/25/11 01/01/14 Blayne Santana, RN Registered Nurse Transplant 02/10/12 10/01/15 documented as of this encounter
--- OUTSIDE RECORDS SUMMARY | 2022-04-29 12:27 | XMS_ITS | Encounter Summary ---
:1950 Author Organization [place] Address [facility] [address] Care Team Providers Name Role Phone Toña [...] CARDIAC - HIM SCAN 08/30/2011 8:28 AM RUBBER COMPOUNDER MIXER - ARCHIVE ECHO CARDIAC - HIM SCAN 08/30/2011 8:27 AM RUBBER COMPOUNDER MIXER - ARCHIVE documented in this encounter Results EKG CARDIAC - HIM SCAN - ARCHIVE (08/30/2011 8:28 AM RUBBER COMPOUNDER MIXER) Specimen (Source) Anatomical Location Collection Method / Collectio n Time Received Time / Laterality Volume Narrative This result has an attachment that is no t available. Marcela Provider ECG ORDERABLES ECHO CARDIAC - HIM SCAN - ARCHIVE (08/30/2011 8:27 AM RUBBER COMPOUNDER MIXER) Specimen (Source) Anatomical Location Collection Method / Collectio n Time Received Time / Laterality Volume Narrative This result has an attachment that is no t available. Marcela Provider CV ECHO ORDERABLES documented in this encounter Visit Diagnoses Not on filedocumented in this encounter Care Teams Textile Conservator Relationship Specialty Start Date End Date Toña Jones MD PCP - General Nephrology 11/25/11 01/01/14 Momo Forbes PCP - General Family Practice 01/02/14 [facility] [address] [place] [address] Ingrid Santana, RN Registered Nurse Transplant 02/10/12 10/01/15 documented as of this encounter
--- OUTSIDE RECORDS SUMMARY | 2022-04-29 12:27 | XMS_ITS | Encounter Summary ---
:1950 Author Organization [place] Address [address] [place] [address] Care Team Providers Name Role Phone Toña Jones MD Primary Care Provider Reason for Visit (Routine) - Closed Specialty Diagnoses / Procedures Referred By Contact Refer red To Contact Cardiology Diagnoses ECHO CLINIC COMPLETE ADULT Procedure Notes: DIABETES MELLITUS, TYPE 2,END STAGE RENAL DISEASE,Transplant eval,Performing Location?->[facility] Echocardiography Procedures RADIOLOGY [address] [place] [address] Phone: Referral ID Status Reason Start Date Expiration Date Visits Requ ested Visits Authorized [id number] Closed 01/21/2012 01/20/2013 1 1 Encounter Details Date Type Department Care Team Description 02/08/2012 Hospital Encounter [facility] [place], Jeff Joshi MD [address] [facility] [address] [place] [address] Diabetes mellitus, type 2 (H); Echocardiography Rajat German MD [address] [facility] [address] [place] [address] End stage renal disease (H) [address] [place] [address] Social History Tobacco Use Types [...] mouth 0 04/20/2016 100 MG tablet daily. amLODIPine (NORVASC) Take 10 mg by mouth 0 02/10/2012 10 MG tablet daily. aspirin 81 MG tablet Take 1 tablet by mouth 0 02/18/2014 daily. B pomdtth-Q-wtslv acid Take 1 capsule by mouth 0 02/08/2014 (NEPHROCAPS) 1 MG daily. capsule carvedilol (COREG) Take 12.5 mg by mouth 2 0 02/10/2012 12.5 MG tablet times daily (with meals). furosemide (LASIX) 80 Take 80 mg by mouth 0 02/10/2012 MG tablet daily. LORazepam (ATIVAN) 1 Take 1 mg by mouth 0 02/10/2012 MG tablet every 6 hours as needed. zolpidem (AMBIEN) 10 Take 10 mg by [...] - Clinic (PWB) (02/08/2012 1:13 PM CDT) [facility] Method Time Signature XCELERA RADIOLOGY Interpretation [...] disease documented in this encounter Care Teams Millstone Cleaner Relationship Specialty Start Date End Date Toña Jones MD PCP - General Nephrology 11/25/11 01/01/14 documented as of this encounter
--- OUTSIDE RECORDS SUMMARY | 2022-04-29 12:27 | XMS_ITS | Encounter Summary ---
:1950 Author Organization [place] Address [address] [place] [address] Care Team Providers Name Role Phone Toña Jones MD Primary Care Provider Encounter Details Date Type Department Care Team Description 02/08/2012 Orders Only [facility] Thomas, Ty Blink, End sta ge kidney Pulmonary Function disease ( H) (Primary Laboratory Dx) 6th Floor [address] [place] [address] Social History Tobacco Use [...] Testing (Generic) (02/08/2012 8:35 AM CDT) [facility] Method Time Signature Pulmonary COPATH Function Test Name: ? ELINOR GUTHRIE ? ID: ?[id number] Doctor: ?JESUS THOMAS ?Height: ?72.00 in ? [...] INTERPRETATION: The FVC, FEV1, FEV1/FVC ratio and SHR45-99% are within normal limits. ??The inspiratory flow [...] disease documented in this encounter Care Teams Extrusion Supervisor Relationship Specialty Start Date End Date Toña Jones MD PCP - General Nephrology 11/25/11 01/01/14 documented as of this encounter
--- OUTSIDE RECORDS SUMMARY | 2022-04-29 12:27 | XMS_ITS | Encounter Summary ---
:1950 Author Organization [place] Address [address] [place] [address] Care Team Providers Name Role Phone Toña Jones MD Primary Care Provider Ingrid Santana RN Unavailable Encounter Details Date Type Department Care Team Description 02/08/2012 Results Only LABORATORY RESULTS Jeff Joshi MD [address] [facility] [address] [place] [address] (Wo rk) Social History Tobacco [...] II Single Antigen (02/08/2012 7:07 AM CDT) [facility] Method Time Signature SA2 Test Single [...] Phon e Number UU HLA LABORATORY Immunology/Histocompatabil [place], [place] [address] ity [facility] [address] [facility] [address] Building, Room 3-580 HISTOTRAC documented in this encounter Visit Diagnoses Not on filedocumented in this encounter Care Teams Bandmill Operator Relationship Specialty Start Date End Date Toña Jones MD PCP - General Nephrology 11/25/11 01/01/14 Ingrid Santana RN Registered Nurse Transplant 02/10/12 10/01/15 documented as of this encounter
--- OUTSIDE RECORDS SUMMARY | 2022-04-29 12:27 | XMS_ITS | Encounter Summary ---
:1950 Author Organization [place] Address [address] [place] [address] Care Team Providers Name Role Phone Toña Jones MD Primary Care Provider Ingrid Santana RN Unavailable Encounter Details Date Type Department Care Team Description 02/08/2012 Results Only LABORATORY RESULTS Jeff Joshi MD [address] [facility] [address] [place] [address] (Wo rk) Social History Tobacco [...] I Single Antigen (02/08/2012 7:07 AM CDT) [facility] Method Time Signature SA1 Test Single [...] Phon e Number UU HLA LABORATORY Immunology/Histocompatabil [place], [place] [address] ity [facility] [address] [facility] [address] Building, Room 3-580 HISTOTRAC documented in this encounter Visit Diagnoses Not on filedocumented in this encounter Care Teams Human Resources Coordinator Relationship Specialty Start Date End Date Toña Jones MD PCP - General Nephrology 11/25/11 01/01/14 Ingrid Santana, RN Registered Nurse Transplant 02/10/12 10/01/15 documented as of this encounter
--- OUTSIDE RECORDS SUMMARY | 2022-04-29 12:27 | XMS_ITS | Encounter Summary ---
:1950 Author Organization [place] Address [address] [place] [address]. [place] [address] Care Team Providers Name Role Phone Toña [...] on filedocumented in this encounter Care Teams Redeye Gunner Relationship Specialty Start Date End Date Toña Jones MD PCP - General Nephrology 11/25/11 01/01/14 Momo Forbes PCP - General Family Practice 01/02/14 [facility] [address] [place] [address] Ingrid Santana, RN Registered Nurse Transplant 02/10/12 10/01/15 documented as of this encounter
--- OUTSIDE RECORDS SUMMARY | 2022-04-29 12:27 | XMS_ITS | Encounter Summary ---
:1950 Author Organization [place] Address [address] [facility] [place] [address] Care Team Providers Name Role Phone Toña Jones MD Primary Care Provider Ingrid Santana RN Unavailable Encounter Details Date Type Department Care Team Description 02/08/2012 Results Only LABORATORY RESULTS Jeff Joshi MD [facility] [facility] [address] [place] [address] (Wo rk) Social History Tobacco [...] Phon e Number UU HLA LABORATORY Immunology/Histocompatabil [place], [place] [address] ity [facility] [address] Building, Room 3-580 HISTOTRAC documented in this encounter Visit Diagnoses Not on filedocumented in this encounter Care Teams Bottom Loader Relationship Specialty Start Date End Date Toña Jones MD PCP - General Nephrology 11/25/11 01/01/14 Ingrid Santana RN Registered Nurse Transplant 02/10/12 10/01/15 documented as of this encounter
--- OUTSIDE RECORDS SUMMARY | 2022-04-29 12:27 | XMS_ITS | Encounter Summary ---
:1950 Author Organization [place] Address [facility] [place] [address] Care Team Providers Name Role Phone Toña Jones MD Primary Care Provider Ingrid Santana RN Unavailable Encounter Details Date Type Department Care Team Description 12/07/2011 Orders Only Nephrology Chucho Joshi MD Dialysis patient (H) 2nd Floor, Clinic 2A [address] [place] (Primary Dx) Tommy Ruiz[address] [place] [address] [place], [place] [phone] (Wo rk) [address] [phone] Social History Tobacco Use Types Packs/Day Years Used Date Never Assessed Sex Assigned at Date Recorded Not on file documented as of this encounter Plan of Treatment Not on filedocumented as of this encounter Visit Diagnoses Diagnosis Dialysis patient (H) - Primary Renal dialysis status documented in this encounter Care Teams Twisting Machine Operator Relationship Specialty Start Date End Date Toña Jones MD PCP - General Nephrology 11/25/11 01/01/14 Ingrid Santana, RN Registered Nurse Transplant 02/10/12 10/01/15 documented as of this encounter
--- OUTSIDE RECORDS SUMMARY | 2022-04-29 12:27 | XMS_ITS | Encounter Summary ---
:1950 Author Organization [place] Address [facility] [place] [address] Care Team Providers Name Role Phone Toña [...] on filedocumented in this encounter Care Teams Data Developer Relationship Specialty Start Date End Date Toña Jones MD PCP - General Nephrology 11/25/11 01/01/14 Momo Forbes PCP - General Family Practice 01/02/14 [facility] [address] [place] [address] Ingrid Santana, RN Registered Nurse Transplant 02/10/12 10/01/15 documented as of this encounter
--- OUTSIDE RECORDS SUMMARY | 2022-04-29 12:27 | XMS_ITS | Encounter Summary ---
:1950 Author Organization [place] Address [address] [place] [address]. [place] [address] Care Team Providers Name Role Phone Toña [...] on filedocumented in this encounter Care Teams Training Systems Officer Relationship Specialty Start Date End Date Toña Jones MD PCP - General Nephrology 11/25/11 01/01/14 Momo Forbes PCP - General Family Practice 01/02/[address] [address] Ingrid Santana, RN Registered Nurse Transplant 02/10/12 10/01/15 documented as of this encounter
--- OUTSIDE RECORDS SUMMARY | 2022-04-29 12:27 | XMS_ITS | Encounter Summary ---
:1950 Author Organization [place] Address [address] [facility] [place] [address] Care Team Providers Name Role Phone Toña Jones MD Primary Care Provider Ingrid Santana RN Unavailable Encounter Details Date Type Department Care Team Description 02/15/2012 Hospital Encounter [facility] Barbara Bradley Unsstar ecified essential hypertension; [facility] Imaging MD Monae Pre-operative clearance [address] [place] [phone] Social History Tobacco Use Types Packs/Day [...] tablet by mouth 0 02/18/2014 daily. B tciyeri-W-vlhca acid Take 1 capsule by mouth 0 [...] unspecified documented in this encounter Care Teams Television Installer Relationship Specialty Start Date End Date Toña Jones MD PCP - General Nephrology 11/25/11 01/01/14 Ingrid Santana, BOGDAN Registered Nurse Transplant 02/10/12 10/01/15 documented as of this encounter
--- OUTSIDE RECORDS SUMMARY | 2022-04-29 12:27 | XMS_ITS | Encounter Summary ---
:1950 Author Organization [place] Address [facility] [place] [address] Care Team Providers Name Role Phone Toña Jones MD Primary Care Provider Reason for Visit Reason Onset Date Comments Pre Visit Planning - Done 02/07/2012 Consult prior to kidney transplant, needs EKG please. Encounter Details Date Type Department Care Team Description 02/07/2012 PRE VISIT [facility] Barbara Bradley Pre Visit Planning - Physicians Heart MD Monae Done (Consult prior to Sanders [address] kidney transplant, [place] [address] needs EKG please.) 4th Floor, Clinic [address] [phone] Social History Tobacco Use Types [...] on filedocumented in this encounter Care Teams Research And Development Chemist Relationship Specialty Start Date End Date Toña Jones MD PCP - General Nephrology 11/25/11 01/01/14 documented as of this encounter
--- OUTSIDE RECORDS SUMMARY | 2022-04-29 12:27 | XMS_ITS | Encounter Summary ---
:1950 Author Organization [place] Address [address] [facility] [place] [address] Care Team Providers Name Role Phone Toña Jones MD Primary Care Provider Ingrid Santana RN Unavailable Encounter Details Date Type Department Care Team Description 02/08/2012 Results Only LABORATORY RESULTS Jeff Joshi MD [address] [facility] [address] [place] [address] (Wo rk) Social History Tobacco [...] LAB - IMMUNOLOGY ORDERABLES Performing Organization Address City/State/[facility] Code Phon e Number [facility] Immunology/Histocompatabil [place], [place] [address] ity [facility] [address] [facility] [address] Building, Room 3-580 HISTOTRAC documented in this encounter Visit Diagnoses Not on filedocumented in this encounter Care Teams Separator Tender Relationship Specialty Start Date End Date Tñoa Jones MD PCP - General Nephrology 11/25/11 01/01/14 Ingrid Santana RN Registered Nurse Transplant 02/10/12 10/01/15 documented as of this encounter
--- OUTSIDE RECORDS SUMMARY | 2022-04-29 12:27 | XMS_ITS | Encounter Summary ---
:1950 Author Organization [place] Address [address] [facility] [place] [address] Care Team Providers Name Role Phone Toña Jones MD Primary Care Provider Ingrid Santana RN Unavailable Encounter Details Date Type Department Care Team Description 02/10/2012 Hospital Encounter [facility] Jesus Cardenas MD Nutrition Services Martina Harley, RD [address] [facility] [address] [place] [address] [address] [facility] Joseph Quintana MD [address] [facility] 353 [facility] [address] [place] [address] 84 [place] [address] Social History Tobacco Use Types Packs/Day Years [...] tablet by mouth 0 02/18/2014 daily. B gsnwdnb-T-smlva acid Take 1 capsule by mouth 0 [...] Mcneill, RD - 02/10/2012 8:47 AM CDT [facility] Nutrition Therapy Visit Type: [...] filedocumented in this encounter Care Teams Care Center Manager Relationship Specialty Start Date End Date Toña Jones MD PCP - General Nephrology 11/25/11 01/01/14 Ingrid Santana RN Registered Nurse Transplant 02/10/12 10/01/15 documented as of this encounter
--- OUTSIDE RECORDS SUMMARY | 2022-04-29 12:27 | XMS_ITS | Encounter Summary ---
:1950 Author Organization [place] Address [address] [place] [address]. [place] [address] Care Team Providers Name Role Phone Toña [...] on filedocumented in this encounter Care Teams Help Desk Coordinator Relationship Specialty Start Date End Date Toña Jones MD PCP - General Nephrology 11/25/11 01/01/14 Momo Forbes PCP - General Family Practice 01/02/[address] [address] Ingrid Santana, RN Registered Nurse Transplant 02/10/12 10/01/15 documented as of this encounter
--- OUTSIDE RECORDS SUMMARY | 2022-04-29 12:27 | XMS_ITS | Encounter Summary ---
:1950 Author Organization [place] Address [facility]0 [facility] [place] [address] Care Team Providers Name Role Phone Toña Jones MD Primary Care Provider Ingrid Santana RN Unavailable Reason for Visit Reason Comments Transplant Evaluation Kidney transplant evaluation - chronic kidney disease Encounter Details Date Type Department Care Team Description 02/10/2012 Office Visit The Transplant Edda Cardenas, Ty Blink, DM (diabetes 2nd Floor, Clinic 2A MD mellitus), type 2 (H) Tommy Wilburn (Primar y Dx) [address] [phone] Social History Tobacco Use Types [...] this time. Patient to follow up with resident service coordinator. documented in this encounter Plan of Treatment Not on filedocumented as of this encounter Visit Diagnoses Diagnosis DM (diabetes mellitus), type 2 (H) - Ana ashley Type II or unspecified type diabetes aung litus without mention of complication, not stated as uncontrolled documented in this encounter Care Teams Orthotic Technician Relationship Specialty Start Date End Date Toña Jones MD PCP - General Nephrology 11/25/11 01/01/14 Ingrid Santana RN Registered Nurse Transplant 02/10/12 10/01/15 documented as of this encounter
--- OUTSIDE RECORDS SUMMARY | 2022-04-29 12:27 | XMS_ITS | Encounter Summary ---
:1950 Author Organization [place] Address [address] [place] [address] Care Team Providers Name Role Phone Toña [...] filedocumented in this encounter Care Teams Financial Auditor Relationship Specialty Start Date End Date Toña Jones MD PCP - General Nephrology 11/25/11 01/01/14 Momo Forbes PCP - General Family Practice 01/02/14 [facility] [address] [place] [address] Ingrid Santana, RN Registered Nurse Transplant 02/10/12 10/01/15 documented as of this encounter
--- OUTSIDE RECORDS SUMMARY | 2022-04-29 12:27 | XMS_ITS | Encounter Summary ---
:1950 Author Organization [place] Address [id number] [place] [address] Care Team Providers Name Role Phone Toña Jones MD Primary Care Provider Ingrid Santana RN Unavailable Reason for Visit Reason Comments Social Work Services Encounter Details Date Type Department Care Team Description 02/10/2012 Office Visit The Transplant Aaknksha Stacy Organ transplant 2nd Floor, Clinic 2A SHALOM Zacarias candidate ([facility] [address] [phone] Social History Tobacco Use Types Packs/Day Years [...] old Duration of Interview: 40 min Process: Qoux-ux-Dnxi Interview (counseling < 50%) Present at Appointment: Latrell, his brother Kiran and Latrell Zamora, Transplant Financial Locate TechnicianRoll Form Operator Worker: CECY Ortiz, [facility] Date: February 10, 2012 Type of transplant: Kidney Donor type: Latrell indicated that he does not know of any potential donors at this time. [place] Prior Transplants: No Status of Transplant: Current Living Situation Location: [address] [place] [phone] With Whom: Alone Family/ Social Support: Kiran lives in [place], [place]. Available, helpful Committed relationship: Latrell indicated [...] Income Savings Insurance Latrell has BC/BS through [employer] until 07/22/13. He has also applied for [...] that assist with fund raising. Discussed asking production staff worker for assistance with cobra premiums and [...] No Adequate Finances Yes Signature: CECY Ortiz, [facility] Title: Clinical Clear Coat Sprayer documented in this encounter Plan of Treatment Not on filedocumented as of this encounter Visit Diagnoses Diagnosis Organ transplant candidate - Primary Awaiting organ transplant status documented in this encounter Care Teams Scale Balancer Relationship Specialty Start Date End Date Toña Jones MD PCP - General Nephrology 11/25/11 01/01/14 Ingrid Santana RN Registered Nurse Transplant 02/10/12 10/01/15 documented as of this encounter
--- OUTSIDE RECORDS SUMMARY | 2022-04-29 12:27 | XMS_ITS | Encounter Summary ---
:1950 Author Organization [place] Address [address] [place] [address] Care Team Providers Name Role Phone Toña Jones MD Primary Care Provider Ingrid Santana RN Unavailable Encounter Details Date Type Department Care Team Description 02/08/2012 Orders Only [facility] Jesus Cardenas Di abetes mellitus, type 2 (H); [facility] Gordo oneal MD End stage renal disease (H); [address] [place] [address] Social History Tobacco Use Types Packs/Day Years [...] Results ABO type (02/08/2012 1:52 PM CDT) [facility] [employer] Method Time Signature ABO A [facility] RH(D) Pos [facility] Specimen 02/11/2012 [facility] Anatomical Collection Method Collection Time Receive d Time (Source) Location / / Volume Laterality Blood specimen 02/08/2012 1:52 PM 012 1:54 (specimen) CDT PM CDT Chucho Joshi MD LAB - BLOOD BANK TEST ORDER Performing Organization Address City/[facility]/ZIP Code Phon e Number [address] LABS EKG 12-lead, tracing only (02/08/2012 7:30 AM CDT) [facility] [employer] Method Time Signature Ventricular Rate 60 BPM RADIOLOGY RESULTS Atrial Rate 60 BPM RADIOLOGY RESULTS W[place] Interval 186 ms RADIOLOGY RESULTS QRS Duration 104 ms RADIOLOGY RESULTS QT 440 ms RADIOLOGY RESULTS QTc 440 ms RADIOLOGY RESULTS P [place] 36 degrees RADIOLOGY RESULTS R AXIS 0 degrees RADIOLOGY RESULTS T [place] 36 degrees RADIOLOGY RESULTS Interpretation Sinus rhythm [...] DEFINED documented in this encounter Care Teams Crisis Specialist Relationship Specialty Start Date End Date Toña Jones MD PCP - General Nephrology 11/25/11 01/01/14 Ingrid Santana, RN Registered Nurse Transplant 02/10/12 10/01/15 documented as of this encounter
--- OUTSIDE RECORDS SUMMARY | 2022-04-29 12:27 | XMS_ITS | Encounter Summary ---
:1950 Author Organization [place] Address Formerly [facility]0 [facility] 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 ??The [...] Code Phon e Number [facility] [address] [place], [place] [id number] [place] [address] [facility] Antibody titer red cell (02/08/2012 7:26 AM CDT) [facility] Method Time Signature Antibody Titer Anti B [facility] titer IgM: [place] 4 Ig CAMPUS LABS Specimen Anatomical Collection Method Collection Time Receive d Time (Source) Location / / Volume Laterality Blood specimen 02/08/2012 7:26 AM 012 7:31 (specimen) CDT AM CDT Darian Joshi MD LAB - BLOOD BANK TEST ORDER Performing Organization Address City/State/ZIP Code Phon e Number [facility] [address] LABS Prostate spec antigen screen (02/08/2012 7:25 AM CDT) P athologist Signature PSA 0.44 0 - 4 ug/L [facility] LABS Comment: PSA results are [...] Code Phon e Number [facility] [address] LABS Hemoglobin A1c (02/08/2012 7:25 AM CDT) P athologist Signature Hemoglobin A1C 5.3 4.3 - 6.0 [facility] % [place] LABS Specimen Anatomical Collection Method Collection Time Receive d Time (Source) Location / / Volume Laterality Blood specimen 02/08/2012 7:25 AM 012 7:30 (specimen) CDT AM CDT Darian Joshi MD LAB - BLOOD ORDERABLES Performing Organization Address City/State/ZIP Code Phon e Number [facility] [address] [place], [place] [phone] [place] [address] LABS C-peptide (02/08/2012 7:25 AM CDT) athologist Signature C Peptide 5.3 0.9 - 6.9 [facility] ng/mL [place] [facility]S Specimen Anatomical Collection Method Collection Time Receive d Time (Source) Location / / Volume Laterality Blood specimen 02/08/2012 7:25 AM 012 7:30 (specimen) CDT AM CDT Darian Joshi MD LAB - BLOOD ORDERABLES Performing Organization Address City/State/ZIP Code Phon e Number [address] LABS Cardiolipin antibody IgG and IgM (02/08/2012 7:25 AM CDT) [facility] Method Time Signature Cardiolipin IgG <15.0 0 - 15.0 [facility] Shaye Interpretation: ??Negative GPL [facility] LABS Cardiolipin IgM <12.5 0 - 12.5 [facility] Shaye Interpretation: ??Negative MPL [facility] LABS Specimen Anatomical Collection Method Collection Time Receive d Time (Source) Location / / Volume Laterality Blood specimen 02/08/2012 7:25 AM 012 7:30 (specimen) CDT AM CDT Darian Joshi MD LAB - BLOOD ORDERABLES Performing Organization Address City/State/ZIP Code Phon e Number [phone] [place] [address] LABS (ABNORMAL) Comprehensive metabolic panel (02/08/2012 7:25 AM CDT) [facility] Method Time Signature Sodium 143 133 - 144 [facility] mmol/L [facility] Potassium 4.4 3.4 - 5.3 [facility] mmol/L [facility] Chloride 106 94 - 109 [facility] mmol/L [facility] Carbon Dioxide 24 20 - 32 [facility] mmol/L [facility] Anion Gap 13 6 - 17 [facility] mmol/L [facility] Glucose 126 (H) 60 - 99 [facility] mg/dL [facility] Urea Nitrogen 32 (H) 7 - 30 [facility] mg/dL [facility]S Creatinine 5.46 (H) 0.66 - [facility] 1.25 [place] mg/dL CAMPUS LABS GFR Estimate 11 (L) >60 [facility] mL/min/1. [address] LABS GFR Estimate If 13 (L) >60 [facility] Black mL/min/1. [address] LABS Calcium 8.5 8.5 - [facility] 10.4 [facility] mg/dL [place] [facility] Bilirubin Total 0.8 0.2 - 1.3 [facility] mg/dL [facility] Albumin 3.8 3.3 - 4.9 [facility] g/dL [facility] Protein Total 6.8 6.8 - 8.8 [facility] g/dL [facility] Alkaline 92 40 - 150 [facility] Phosphatase U/L [facility] ALT 13 0 - 70 [facility] U/L [facility] AST 18 0 - 45 [facility] U/L [facility] Specimen Anatomical Collection Method Collection Time Receive d Time (Source) Location / / Volume Laterality Blood specimen 02/08/2012 7:25 AM 012 7:30 (specimen) CDT AM CDT Darian Joshi MD LAB - BLOOD ORDERABLES Performing Organization Address City/[facility]/ZIP Code Phon e Number [facility] [address] LABS Lipid Profile (02/08/2012 7:25 AM CDT) P athologist Signature Cholesterol 134 0 - 200 [facility] mg/dL [place] [facility] Comment: LDL Cholesterol is the primary guide to therapy. The NCEP recommends further evaluation of: patients with cholesterol greater than 200 mg/dL if additional risk facto rs are present, cholesterol greater than 240 mg/dL, triglycerides greater than 1 50 mg/dL, or HDL less than 40 mg/dL. Triglycerides 74 0 - 150 mg/dL [facility] LABS HDL Cholesterol 42 40 - 110 mg/dL [facility] LABS LDL Cholesterol Calculated 77 0 - 129 mg/dL [facility] LABS Comment: LDL Cholesterol is the primary guide to therapy: LDL-cholesterol goal in high risk patients is <100 mg/dL and in very high risk patients is <70 mg/dL. VLDL-Cholesterol 15 0 - 30 mg/dL [facility] LABS Cholesterol/HDL Ratio 3.2 0.0 - 5.0 [facility] Specimen Anatomical Collection Method Collection Time Receive d Time (Source) Location / / Volume Laterality Blood specimen 02/08/2012 7:25 AM 012 7:30 (specimen) CDT AM CDT Darian Joshi MD LAB - BLOOD ORDERABLES Performing Organization Address City/State/ZIP Code Phon e Number [facility] [address] [place] [address] [facility] LABS ABO/Rh type and screen (02/08/2012 7:25 AM CDT) Patholo gist Method Time Signature ABO A [facility] LABS RH(D) Pos [facility] LABS Antibody Neg [facility] Screen [facility] Specimen 02/11/2012 [facility] Expires [facility] Specimen Anatomical Collection Method Collection Time Receive d Time (Source) Location / / Volume Laterality Blood specimen 02/08/2012 7:25 AM 012 7:30 (specimen) CDT AM CDT Darian Joshi MD LAB - BLOOD BANK TEST ORDER Performing Organization Address City/[facility]/ZIP Code Phon e Number [facility] [address] LABS Varicella zoster antibody IgG (02/08/2012 7:25 AM CDT) Patholo gist Method Time Signature Varicella 1023.00 [facility] Zoster IgG [facility] Immune Status CAMPUS LABS Ratio Vari Zoster Positive, [facility] IgG Interp suggests [place] prev. CAMPUS LABS exposure and probable immunity Specimen Anatomical Collection Method Collection Time Receive d Time (Source) Location / / Volume Laterality Blood specimen 02/08/2012 7:25 AM 012 7:30 (specimen) CDT AM CDT Darian Joshi MD LAB - BLOOD ORDERABLES Performing Organization Address City/[facility]/ZIP Code Phon e Number [facility] [address] LABS Anti treponema EIA (02/08/2012 7:25 AM CDT) Analysis Performed At Patho logist Time Signature Treponema Negative NEG [facility] Antibody [place] [facility] Specimen Anatomical Collection Method Collection Time Receive d Time (Source) Location / / Volume Laterality Blood specimen 02/08/2012 7:25 AM 012 7:30 (specimen) CDT AM CDT Darian Joshi MD LAB - BLOOD ORDERABLES Performing Organization Address City/[facility]/ZIP Code Phon e Number [facility] [address] [place], [place] [phone] [place] [address] LABS HIV 1 and 2 Antibody (02/08/2012 7:25 AM CDT) Analysis Performed At Patho logist Time Signature HIV 1&2 Negative NEG [facility] Antibody [facility] LAB[facility] Specimen Anatomical Collection Method Collection Time Receive d Time (Source) Location / / Volume Laterality Blood specimen 02/08/2012 7:25 AM 012 7:30 (specimen) CDT AM CDT Darian Joshi MD LAB - BLOOD ORDERABLES Performing Organization Address City/State/ZIP Code Phon e Number [facility] [address] [place], [place] [phone] [place] [address] LABS Hepatitis C antibody (02/08/2012 7:25 AM CDT) Analysis Performed At Patho logist Time Signature Hepatitis C Negative NEG [facility] Antibody [facility] LAB[facility] Specimen Anatomical Collection Method Collection Time Receive d Time (Source) Location / / Volume Laterality Blood specimen 02/08/2012 7:25 AM 012 7:30 (specimen) CDT AM CDT Darian Joshi MD LAB - BLOOD ORDERABLES Performing Organization Address City/State/ZIP Code Phon e Number [facility] [address] [place], [place] [phone] [place] [address] LABS Hepatitis B surface antigen (02/08/2012 7:25 AM CDT) [facility] Signature Hep B Surface Negative NEG [facility] Agn [facility] LABS Specimen Anatomical Collection Method Collection Time Receive d Time (Source) Location / / Volume Laterality Blood specimen 02/08/2012 7:25 AM 012 7:30 (specimen) CDT AM CDT Darian Joshi MD LAB - BLOOD ORDERABLES Performing Organization Address City/[facility]/ZIP Code Phon e Number [facility] [address] LABS Hepatitis B surface antibody (02/08/2012 7:25 AM CDT) P athologist Signature Hep B Surface 135.0 [facility] LABS Comment: Positive, Patient is considered [...] Code Phon e Number [facility] [address] [place], [place] [phone] [place] [address] LABS Hepatitis B core antibody (02/08/2012 7:25 AM CDT) Analysis Performed At Patho logist Time Signature Hepatitis B Negative NEG [facility] Specimen Anatomical Collection Method Collection Time Receive d Time (Source) Location / / Volume Laterality Blood specimen 02/08/2012 7:25 AM 012 7:30 (specimen) CDT AM CDT Darian Joshi MD LAB - BLOOD ORDERABLES Performing Organization Address City/[facility]/ZIP Code Phon e Number [facility] [address] LABS EBV VCA IgG Antibody (02/08/2012 7:25 AM CDT) P athologist Signature EBV VCA IgG 188.00 U/mL [facility] LABS Comment: Positive, suggests immunologic exposure. Specimen Anatomical Collection Method Collection Time Receive d Time (Source) Location / / Volume Laterality Blood specimen 02/08/2012 7:25 AM 012 7:30 (specimen) CDT AM CDT Darian Joshi MD LAB - BLOOD ORDERABLES Performing Organization Address City/[facility]/ZIP Code Phon e Number [facility] [address] LABS CMV IGG ANTIBODY (02/08/2012 7:25 AM CDT) P athologist Signature CMV IgG 3.30 U/mL [facility] LABS Comment: Positive for anti-CMV IgG Specimen Anatomical Collection Method Collection Time Receive d Time (Source) Location / / Volume Laterality Blood specimen 02/08/2012 7:25 AM 012 7:30 (specimen) CDT AM CDT Darian Joshi MD LAB - BLOOD ORDERABLES Performing Organization Address City/[facility]/ZIP Code Phon e Number [facility] [address] LABS Immunology recipient: SOT HLA Workup (ABC,DR,DQ,PRA,Crossmatch) (02/08/2012 7:25 AM CDT) Patholo gist Method Time Signature Immunology SOT HLA WORKUP [facility] Test Name [facility]S Immunology Specimen [facility] Result received - [facility] Immunology CAMPUS LABS report to follow upon completion. Specimen Anatomical Collection Method Collection Time Receive d Time (Source) Location / / Volume Laterality Blood specimen 02/08/2012 7:25 AM 012 7:30 (specimen) CDT AM CDT Darian Joshi MD LAB - IMMUNOLOGY ORDERABLES Performing Organization Address City/State/ZIP Code Phon e Number [facility] [address] [place] [address] [facility] [place] LAB[facility] (ABNORMAL) CBC with platelets differential (02/08/2012 7:25 AM CDT) [facility] gist Method Time Signature WBC 6.3 4.0 - [facility] 11.0 [facility] 10e9/L CAMPUS LABS RBC Count 3.97 (L) 4.4 - 5.9 [facility] 10e12/L [facility] Hemoglobin 12.0 (L) 13.3 - [facility] 17.7 g/dL [facility]S Hematocrit 36.3 (L) 40.0 - [facility] 53.0 % [facility] MCV 91 78 - 100 [facility] fl [facility] [place] [facility] MCH 30.2 26.5 - [facility] 33.0 pg [place] [facility] LABS MCHC 33.1 31.5 - [facility] 36.5 g/dL [facility] RDW 15.3 (H) 10.0 - [facility] 15.0 % [facility] LABS Platelet Count 144 (L) 150 - 450 [facility] 10e9/L [facility] Diff Method Automated [facility] Method [facility] LAB[facility] % Neutrophils 57.7 40 - 75 % [facility] LABS % Lymphocytes 27.7 20 - 48 % [facility] % Monocytes 8.2 0 - 12 % [facility] % Eosinophils 6.1 (H) 0 - 6 % [facility] % Basophils 0.3 0 - 2 % [facility] % Immature 0.0 0 - 0.4 % [facility] Granulocytes [facility] Absolute 3.6 1.6 - 8.3 [facility] Neutrophil 10e9/L [facility] Absolute 1.7 0.8 - 5.3 [facility] Lymphocytes 10e9/L [facility] Absolute 0.5 0.0 - 1.3 [facility] Monocytes 10e9/L [facility] Absolute 0.4 0.0 - 0.7 [facility] Eosinophils 10e9/L [facility] Absolute 0.0 0.0 - 0.2 [facility] Basophils 10e9/L [facility] LABS Abs Immature 0.0 0 - 0.03 [facility] Granulocytes 10e9/L [facility] LABS Specimen Anatomical Collection Method Collection Time Receive d Time (Source) Location / / Volume Laterality Blood specimen 02/08/2012 7:25 AM 012 7:30 (specimen) CDT AM CDT Darian Joshi MD LAB - BLOOD ORDERABLES Performing Organization Address [facility]/ZIP Code Phon e Number [facility] [address] LABS Lupus panel (02/08/2012 7:25 AM CDT) Component Value Ref Test Analysis Performed At Patholo gist Range Method Time Signature Lupus Result Negative NEG [facility] (Note) [place] COMMENTS: [place] LABS The INR is normal. APTT is normal. ??1:2 Mix is not indicated. DRVVT Screen is normal. Thrombin time is normal. NEGATIVE TEST; A LUPUS ANTICOAGULANT WAS NOT DETECTED IN THI S SPECIMEN WITHIN THE LIMITS OF THE TESTING REPERTOIRE. If the clinical picture is strongly suggestive of an antipho spholipid syndrome, recommend anticardiolipin and qobg-[id number]-zqtahalygtvt (IgG and IgM) antibody tests. Dee Duenas M.D. ??[phone] 02-09-2012. APTT'S: ?? Seconds Reagent = Stago [...] LAB - BLOOD ORDERABLES Performing Organization Address City/[facility]/ZIP Code Phon e Number [facility] [address] [place], [place] [phone] [place] [address] LABS Thrombin time (02/08/2012 7:25 AM CDT) P athologist Signature Thrombin Time 16.7 13.0 - [facility] 19.0 sec CAMPUS LABS Specimen Anatomical Collection Method Collection Time Receive d Time (Source) Location / / Volume Laterality Blood specimen 02/08/2012 7:25 AM 012 7:30 (specimen) CDT AM CDT Darian Joshi MD LAB - BLOOD ORDERABLES Performing Organization Address City/[facility]/ZIP Code Phon e Number [facility] [address] LABS Partial thromboplastin time (02/08/2012 7:25 AM CDT) P athologist Signature PTT 29 22 - 37 sec [facility] LABS Specimen Anatomical Collection Method Collection Time Receive d Time (Source) Location / / Volume Laterality Blood specimen 02/08/2012 7:25 AM 012 7:30 (specimen) CDT AM CDT Darian Joshi MD LAB - BLOOD ORDERABLES Performing Organization Address City/[facility]/ZIP Code Phon e Number [facility] [address] LABS INR (02/08/2012 7:25 AM CDT) P athologist Signature INR 1.11 0.86 - 1.14 [facility] LABS Specimen Anatomical Collection Method Collection Time Receive d Time (Source) Location / / Volume Laterality Blood specimen 02/08/2012 7:25 AM 012 7:30 (specimen) CDT AM CDT Darian Joshi MD LAB - BLOOD ORDERABLES Performing Organization Address City/[facility]/ZIP Code Phon e Number [phone] [place] [address] LABS Factor 2 and 5 mutation analysis (02/08/2012 7:07 AM CDT) Component Value Ref Test Analysis Performed At [facility] Range Method Time Signature Copath Report Patient Name: ELINOR GUTHRIE MR#: [id number] Specimen #: [id number] Collected: 02/08/2012 07:07 Received: 02/08/2012 09:00 Reported: 02/11/2012 14:03 Ordering Phy(s): DARIAN JOSHI TEST(S) REQUESTED: A: Factor 5 Leiden and Factor 2 by PCR B: DNA Isolation, High purity extraction SPECIMEN DESCRIPTION: Blood METHODOLOGY: ?? The regions of genomic DNA containing the G1 691A Factor 5 gene mutation (Factor V Leiden) and the Factor 2(Prothrombin W60937C) gene mutation were simultaneously amplified using the polyme rase chain reaction. ??The amplified products were digested with restri ction endonuclease TaqI and products were analyzed by gel electrop horesis. RESULTS: FACTOR 5-LEIDEN RESULTS: Mutation analyzed: ? 1691G>A Factor 5 Mutation Interpretation: ?ABSENT Factor 5 Mutation genotype: ?G/G FACTOR 2/PROTHROMBIN RESULTS: Mutation analyzed: ? 52217D>A Factor 2 Mutation Interpretation: ?ABSENT Factor 2 Mutation genotype: ?G/G INTERPRETATION: The patient is negative for the Factor 5 mutation and negati ve for the Factor 2 mutation. This test was developed and its performance determined by k[facility] de [facility] ??Molecular Diagnostic Laboratory. It has not [...] By: Liliya Stone MD TESTING LAB LOCATION: [address] [id number] COLLECTION SITE: Client: ??[facility] Location: ??UUTXO (B) Specimen Anatomical Collection Method Collection Time Receive d Time (Source) Location / / Volume Laterality 02/08/2012 7:07 AM 2 9:00 CDT AM CDT Provider Unknown LAB - GENOMICS Performing Organization Address City/State/ZIP Code Phon e Number [place] (ABNORMAL) Routine UA with microscopic (02/08/2012 7:06 AM CDT) Component Value Ref Test Analysis Performed At [facility] gist Range Method Time Signature Color Urine Light Yellow [facility] Appearance Urine Clear [facility] Glucose Urine 300 (A) NEG [facility] mg/dL [facility] Bilirubin Urine Negative NEG [facility] Ketones Urine Negative NEG [facility] mg/dL [facility] [place] [facility] Specific [place] 1.010 1.003 - [facility] Urine 1.035 [facility] [place] [facility] Blood Urine Negative NEG [facility] pH Urine 7.5 (H) 5.0 - [facility] 7.0 pH [facility] LABS Protein Albumin 300 (A) NEG [facility] Urine mg/dL [facility] [place] [facility] Urobilinogen Normal 0.0 - [facility] mg/dL 2.0 [place] mg/dL CAMPUS LABS Nitrite Urine Negative NEG [facility]ITY [facility] Leukocyte Negative NEG [facility] Esterase Urine [facility] [place] [facility] Source Unspecified [facility] Urine [facility] LAB[facility] WBC Urine 1 0 - 2 [facility] /HPF [place] [facility] RBC Urine <1 0 - 2 [facility] /HPF [facility] Hyaline Casts 3 (H) 0 - 2 [facility] /LPF [facility] LAB[facility] Specimen Anatomical Collection Method Collection Time Receive d Time (Source) Location / / Volume Laterality Urine specimen 02/08/2012 7:06 AM 012 7:08 (specimen) CDT AM CDT Darian Joshi MD LAB - URINE ORDERABLES Performing Organization Address City/State/ZIP Code Phon e Number [facility] [address] [facility] LAB[facility] documented in this encounter Visit Diagnoses Diagnosis Diabetes mellitus, type 2 (H) Type II or unspecified type diabetes aung litus without mention of complication, not stated as uncontrolled End stage renal disease (H) End stage renal disease documented in this encounter Care Teams Pearler Relationship Specialty Start Date End Date Toña Jones MD PCP - General Nephrology 11/25/11 01/01/14 documented as of this encounter
--- OUTSIDE RECORDS SUMMARY | 2022-04-29 12:27 | XMS_ITS | Encounter Summary ---
:1950 Author Organization [place] Address [facility]0 [facility] [place] [address] Care Team Providers Name Role Phone Toña [...] on filedocumented in this encounter Care Teams Flavoring Maker Relationship Specialty Start Date End Date Toña Jones MD PCP - General Nephrology 11/25/11 01/01/14 Momo Forbes PCP - General Family Practice 01/02/14 [facility] [address] [place] [address] Ingrid Santana, RN Registered Nurse Transplant 02/10/12 10/01/15 documented as of this encounter
--- OUTSIDE RECORDS SUMMARY | 2022-04-29 12:27 | XMS_ITS | Encounter Summary ---
:1950 Author Organization [place] Address [address] [place] [address] Care Team Providers Name Role Phone Toña Jones MD Primary Care Provider Encounter Details Date Type Department Care Team Description 02/08/2012 Hospital Encounter [facility] Jesus Cardenas MD Patient Learning Bobby Angela Leon, BOGDAN [address] [facility] [address] [place], [place] [phone] [place] [address] Social History Tobacco Use Types Packs/Day Years [...] tablet by mouth 0 02/18/2014 daily. B ewdcbyq-R-ypmjj acid Take 1 capsule by mouth 0 [...] filedocumented in this encounter Care Teams Sales Representative Electric Service Relationship Specialty Start Date End Date Toña Jones MD PCP - General Nephrology 11/25/11 01/01/14 documented as of this encounter
--- OUTSIDE RECORDS SUMMARY | 2022-04-29 12:27 | XMS_ITS | Encounter Summary ---
:1950 Author Organization [place] Address Counts include 234 beds at the [facility] [place] [address] Care Team Providers Name Role Phone Toña Jones MD Primary Care Provider Reason for Referral - Closed Specialty Diagnoses / Procedures Referred By Contact Refer red To Contact Diagnoses Diabetes mellitus, type 2 (H) End stage renal disease (H) [facility] Floor, [place] [phone] Referral ID Status Reason Start Date Expiration Date Visits Requ ested Visits Authorized [id number] Closed 12/02/2011 05/30/2012 1 1 - Closed Specialty Diagnoses / Procedures Referred By Contact Refer red To Contact Diagnoses Diabetes mellitus, type 2 (H) End stage renal disease (H) [facility] Floor, [address] [phone] Referral ID Status Reason Start Date Expiration Date Visits Requ ested Visits Authorized [id number] Closed 12/02/2011 05/30/2012 1 1 - Closed Specialty Diagnoses / Procedures Referred By Contact Refer red To Contact Diagnoses Diabetes mellitus, type 2 (H) End stage renal disease (H) [facility] 2nd Floor, [facility] 2A [place] [phone] Referral ID Status Reason Start Date Expiration Date Visits Requ ested Visits Authorized [id number] Closed 12/02/2011 05/30/2012 1 1 - Closed Specialty Diagnoses / Procedures Referred By Contact Refer red To Contact Diagnoses Diabetes mellitus, type 2 (H) End stage renal disease (H) [facility] 2nd Floor, Clinic [address]A [place] [phone] Referral ID Status Reason Start Date Expiration Date Visits Requ ested Visits Authorized [id number] Closed 12/02/2011 05/30/2012 1 1 - Closed Specialty Diagnoses / Procedures Referred By Contact Refer red To Contact Diagnoses Diabetes mellitus, type 2 (H) End stage renal disease (H) [facility] Floor, [address] [phone] Referral ID Status Reason Start Date Expiration Date Visits Requ ested Visits Authorized [id number] Closed 12/02/2011 05/30/2012 1 1 - Closed Specialty Diagnoses / Procedures Referred By Contact Refer red To Contact Diagnoses Diabetes mellitus, type 2 (H) End stage renal disease (H) [facility] [address] [place] [address], [address] [phone] Referral ID Status Reason Start Date Expiration Date Visits Requ ested Visits Authorized [id number] Closed 12/02/2011 05/30/2012 1 1 - Closed Specialty Diagnoses / Procedures Referred By Contact Refer red To Contact Diagnoses Diabetes mellitus, type 2 (H) End stage renal disease (H) [facility] 2nd Floor, Clinic [address] [phone] Referral ID Status Reason Start Date Expiration Date Visits Requ ested Visits Authorized [id number] Closed 12/02/2011 05/30/2012 1 1 - Closed Specialty Diagnoses / Procedures Referred By Contact Refer red To Contact Diagnoses Diabetes mellitus, type 2 (H) End stage renal disease (H) [facility] 2nd Floor, Clinic [address] [phone] Referral ID Status Reason Start Date Expiration Date Visits Requ ested Visits Authorized [id number] Closed 12/02/2011 05/30/2012 1 1 - Closed Specialty Diagnoses / Procedures Referred By Contact Refer red To Contact Diagnoses Diabetes mellitus, type 2 (H) End stage renal disease (H) [facility] 2nd Floor, Clinic [address] [address] [phone] Referral ID Status Reason Start Date Expiration Date Visits Requ ested Visits Authorized [id number] Closed 12/02/2011 05/30/2012 1 1 Encounter Details Date Type Department Care Team Description 12/02/2011 Orders Only Nephrology Ingrid Santana, Diabetes mellitus, type 2 (H ); 2nd Floor, Clinic 2A RN End stage renal disease (H) [facility] [phone] Building (Work) [address] [place] [phone] Social History Tobacco Use Types Packs/Day [...] 2 (H) End stage renal disease (H) AUTOMOTIVE MECHANICAL ENGINEER Referral Routine Diabetes mellitus, Ordered: 12/02/2011 REFERRAL type 2 (H) End stage renal disease (H) NEPHROLOGY ADULT REFERRAL Referral Routine Diabetes mellit us, Ordered: 12/02/2011 type 2 (H) End stage renal disease (H) GENERAL SURG ADULT Referral Routine Diabetes mellitus, Ord ered: 12/02/2011 REFERRAL type 2 (H) End stage renal disease (H) HISTORICAL MANUSCRIPTS CURATOR REFERRAL Referral Routine Diabetes mellitu s, Ordered: [...] disease documented in this encounter Care Teams Transformer Coil Winder Relationship Specialty Start Date End Date Toña Jones MD PCP - General Nephrology 11/25/11 01/01/14 documented as of this encounter
--- OUTSIDE RECORDS SUMMARY | 2022-04-29 12:28 | XMS_ITS | Encounter Summary ---
:1950 Author Organization [place] Address [facility] [address] Care Team Providers Name Role Phone Toña [...] on filedocumented in this encounter Care Teams Mail Agent Relationship Specialty Start Date End Date Toña Jones MD PCP - General Nephrology 11/25/11 01/01/14 Momo Forbes PCP - General Family Practice 01/02/14 [facility] [address] [place] [address] Ingrid Santana, RN Registered Nurse Transplant 02/10/12 10/01/15 documented as of this encounter
--- OUTSIDE RECORDS SUMMARY | 2022-04-29 12:28 | XMS_ITS | Encounter Summary ---
:1950 Author Organization [place] Address [address] [place] [address]. [place] [address] Care Team Providers Name Role Phone Toña [...] on filedocumented in this encounter Care Teams Merchandising Manager Relationship Specialty Start Date End Date Toña Jones MD PCP - General Nephrology 11/25/11 01/01/14 Momo Forbes PCP - General Family Practice 01/02/14 [facility] [address] [place] [address] Ingrid Santana, RN Registered Nurse Transplant 02/10/12 10/01/15 documented as of this encounter
--- OUTSIDE RECORDS SUMMARY | 2022-04-29 12:28 | XMS_ITS | Encounter Summary ---
:1950 Author Organization [place] Address [address] [place] [address]. [place] [address] Care Team Providers Name Role Phone Toña [...] filedocumented in this encounter Care Teams Bulb Packer Relationship Specialty Start Date End Date Toña Jones MD PCP - General Nephrology 11/25/11 01/01/14 Momo Forbes PCP - General Family Practice 01/02/[address] [address] Ingrid Santana, RN Registered Nurse Transplant 02/10/12 10/01/15 documented as of this encounter
--- OUTSIDE RECORDS SUMMARY | 2022-04-29 12:28 | XMS_ITS | Encounter Summary ---
:1950 Author Organization [place] Address [address] [place] [address]. [place] [address] Care Team Providers Name Role Phone Toña [...] on filedocumented in this encounter Care Teams Blow Pit Operator Relationship Specialty Start Date End Date Toña Jones MD PCP - General Nephrology 11/25/11 01/01/14 Momo Forbes PCP - General Family Practice 01/02/14 [facility] [address] [place] [address] Ingrid Santana, RN Registered Nurse Transplant 02/10/12 10/01/15 documented as of this encounter
--- OUTSIDE RECORDS SUMMARY | 2022-04-29 12:28 | XMS_ITS | Encounter Summary ---
:1950 Author Organization [place] Address [address] [facility] [place] [address] Care Team Providers Name Role Phone Unavailable Primary Care Provider Unavailable Encounter Details Date Type Department Care Team Description 07/30/2009 Results [facility] Results [address] [place] [id number] Social History Tobacco Use Types Packs/Day Years Used Date Never Assessed Sex Assigned at Date Recorded Not on file documented as of this encounter Plan of Treatment Not on filedocumented as of this encounter Procedures Procedure Name Priority Date/Time Associated Diagnosis Comme [facility] RT DUPLEX Routine 07/30/2009 12:32 PM Results for this EXTREM VENOUS,UNI ROUSTABOUT HEAD procedure are in OR LTD the results section. documented in this encounter Results RT DUPLEX EXTREM VENOUS,UNI OR LTD (07/30/2009 12:32 PM ROUSTABOUT HEAD) Specimen (Source) Anatomical Collection Method Collection Time Re ceived Time Location / / Volume Laterality 07/30/2009 12:32 PM ROUSTABOUT HEAD Impressions RADIOLOGY RESULTS - 07/30/2009 4:21 PM [...]
--- OUTSIDE RECORDS SUMMARY | 2022-04-29 12:28 | XMS_ITS | Encounter Summary ---
:1950 Author Organization [place] Address [address] [place] [address]. [place] [address] Care Team Providers Name Role Phone Toña [...] filedocumented in this encounter Care Teams Mail Service Coordinator Relationship Specialty Start Date End Date Toña Jones MD PCP - General Nephrology 11/25/11 01/01/14 Momo Forbes PCP - General Family Practice 01/02/14 [facility] [address] [place] [address] Ingrid Santana, RN Registered Nurse Transplant 02/10/12 10/01/15 documented as of this encounter
--- OUTSIDE RECORDS SUMMARY | 2022-04-29 12:28 | XMS_ITS | Encounter Summary ---
:1950 Author Organization [place] Address [address] [place] [address]. [place] [address] Care Team Providers Name Role Phone Toña [...] filedocumented in this encounter Care Teams Counter Stitcher Relationship Specialty Start Date End Date Toña Jones MD PCP - General Nephrology 11/25/11 01/01/14 Momo Frobes PCP - General Family Practice 01/02/14 [facility] [address] [place] [address] Ingrid Santana, RN Registered Nurse Transplant 02/10/12 10/01/15 documented as of this encounter
--- OUTSIDE RECORDS SUMMARY | 2022-04-29 12:28 | XMS_ITS | Encounter Summary ---
:1950 Author Organization [place] Address [facility] [place] [address] Care Team Providers Name Role Phone Toña [...] - HIM SCAN - 11/02/2005 8:27 AM PALLETIZER OPERATOR ARCHIVE LAB RESULT - HIM SCAN - 11/02/2005 8:25 AM PALLETIZER OPERATOR ARCHIVE documented in this encounter Results LAB RESULT - HIM SCAN - ARCHIVE (11/02/2005 8:27 AM PALLETIZER OPERATOR) Specimen (Source) Anatomical Location Collection Method / Collectio n Time Received Time / Laterality Volume Narrative This result has an attachment that is no t available. Marcela Provider LAB - BLOOD ORDERABLES LAB RESULT - HIM SCAN - ARCHIVE (11/02/2005 8:25 AM PALLETIZER OPERATOR) Specimen (Source) Anatomical Location Collection Method / Collectio n Time Received Time / Laterality Volume Narrative This result has an attachment that is no t available. Marcela Provider LAB - BLOOD ORDERABLES documented in this encounter Visit Diagnoses Not on filedocumented in this encounter Care Teams Children'S Tutor Nursery Relationship Specialty Start Date End Date Toña Jones MD PCP - General Nephrology 11/25/11 01/01/14 Momo Forbes PCP - General Family Practice 01/02/14 [facility] [address] [place] [address] Ingrid Santana, RN Registered Nurse Transplant 02/10/12 10/01/15 documented as of this encounter
--- OUTSIDE RECORDS SUMMARY | 2022-04-29 12:28 | XMS_ITS | Encounter Summary ---
:1950 Author Organization [place] Address [address] [place] [address]. [place] [address] Care Team Providers Name Role Phone Toña [...] on filedocumented in this encounter Care Teams Applied Psychology Chair Relationship Specialty Start Date End Date Toña Jones MD PCP - General Nephrology 11/25/11 01/01/14 Momo Forbes PCP - General Family Practice 01/02/14 [facility] [address] [place] [address] Ingrid Santana, RN Registered Nurse Transplant 02/10/12 10/01/15 documented as of this encounter
--- OUTSIDE RECORDS SUMMARY | 2022-04-29 12:28 | XMS_ITS | Encounter Summary ---
:1950 Author Organization [place] Address [facility] [place] [address] Care Team Providers Name Role Phone Toña [...] on filedocumented in this encounter Care Teams Plastics And Composites Inspector Relationship Specialty Start Date End Date Toña Jones MD PCP - General Nephrology 11/25/11 01/01/14 Momo Forbes PCP - General Family Practice 01/02/14 [facility] [address] [place] [address] Ingrid Santana, RN Registered Nurse Transplant 02/10/12 10/01/15 documented as of this encounter
--- OUTSIDE RECORDS SUMMARY | 2022-04-29 12:28 | XMS_ITS | Encounter Summary ---
:1950 Author Organization [place] Address [address] [facility] [place] [address] Care Team Providers Name Role Phone Toña [...] on filedocumented in this encounter Care Teams Lithographic General Worker Relationship Specialty Start Date End Date Toña Jones MD PCP - General Nephrology 11/25/11 01/01/14 Momo Forbes PCP - General Family Practice 01/02/14 [facility] [address] [place] [address] Ingrid Santana, RN Registered Nurse Transplant 02/10/12 10/01/15 documented as of this encounter
--- OUTSIDE RECORDS SUMMARY | 2022-04-29 12:28 | XMS_ITS | Encounter Summary ---
:1950 Author Organization [place] Address [address] [place] [address]. [place] [address] Care Team Providers Name Role Phone Toña Jones MD Primary Care Provider Ingrid Santana RN Unavailable Momo Forbes Primary Care Provider Encounter Details Date Type Department Care Team Description 01/28/1998 Hospital - [facility] Cesar Tejeda MEDIC [facility] [address] [place], [place] [address] (Wo rk) Social History Tobacco Use Types Packs/Day Years Used Date Never Assessed Sex Assigned at Date Recorded Not on file documented as of this encounter Plan of Treatment Not on filedocumented as of this encounter Visit Diagnoses Not on filedocumented in this encounter Care Teams Window Systems Administrator Relationship Specialty Start Date End Date Toña Jones MD PCP - General Nephrology 11/25/11 01/01/14 Momo Forbes PCP - General Family Practice 01/02/[address] [address] Ingrid Santana, RN Registered Nurse Transplant 02/10/12 10/01/15 documented as of this encounter
--- OUTSIDE RECORDS SUMMARY | 2022-04-29 12:28 | XMS_ITS | Encounter Summary ---
:1950 Author Organization [place] Address [address] [place] [address]. [place] [address] Care Team Providers Name Role Phone Toña [...] on filedocumented in this encounter Care Teams Camper Assembler Relationship Specialty Start Date End Date Toña Jones MD PCP - General Nephrology 11/25/11 01/01/14 Momo Forbes PCP - General Family Practice 01/02/14 [facility] [address] [place] [address] Ingrid Santana, RN Registered Nurse Transplant 02/10/12 10/01/15 documented as of this encounter
[2022-04-29 14:06] LABS: Chloride* 110 mmol/L (96-114); Potassium* 4.5 mmol/L (3.6-5.1); Sodium* 143 mmol/L (135-149)
[2022-04-29 14:09] LABS: Blood Urea Nitrogen* 33 mg/dL (7-30); Carbon Dioxide* 23 mmol/L (20-32); Cholesterol* 74 mg/dL (90-199); Creatinine* 2.4 mg/dL (0.5-1.5); Estimated Glomerular Filt Rate 28 ml/min; Glucose* 101 mg/dL (60-115); Triglycerides* 59 mg/dL (40-149)
[2022-04-29 14:10] LABS: Calcium* 9.4 mg/dL (8.4-10.6); HDL Cholesterol* 35 mg/dL (>=40); LDL Cholesterol Calculated 27 mg/dL (<100)
== END 2022-04-29 12:12 | disposition home or self-care (01) ==
PROVIDERS: PCP Family Medicine; Visit Provider Family Medicine
DX: E78.5 Hyperlipidemia, unspecified (principal); I10 Essential (primary) hypertension; E11.9 Type 2 diabetes mellitus without complications
CPT/HCPCS: 36415; 80048; 80061; 80197; 82570; 84156; 85025

== ENCOUNTER 2022-04-29 13:54 | Outpatient (RCR) | payer MEDICARE, BC, SELFPAY ==
[2022-04-29 15:33] LABS: Basophils Absolute Auto 0.02 K/uL (0.00-0.30); Basophils Percent Auto 0.4 % (0.0-3.0); Eosinophils Absolute Auto 0.32 K/uL (0.00-0.50); Eosinophils Percent Auto 6.5 % (0.0-7.0); Hematocrit 38.7 % (37.0-53.0); Immature Granulocytes Abs Auto 0.01 K/uL (0.00-0.30); Lymphocytes Absolute Auto 0.98 K/uL (0.90-2.90); Mean Corpuscular HGB Conc 31 gm/dL (32-36); Mean Corpuscular Hemoglobin 27 pg (26-34); Mean Corpuscular Volume 86 fL (80-100); Monocytes Percent Auto 8.2 % (0.0-11.0); Neutrophils Absolute Auto 3.16 K/uL (1.7-7.0); Neutrophils Percent Auto 64.7 % (42.0-72.0); Platelet Count* 109 K/uL (140-440); RDW Coefficient of Variation % 15.7 % (11.5-15.5); Red Blood Count 4.48 m/uL (4.30-5.90); White Blood Count* 4.89 K/uL (4.50-11.00)
[2022-04-29 15:56] LABS: Slide Review Reflex No
[2022-04-29 16:00] LABS: Chloride* 111 mmol/L (96-114); Sodium* 144 mmol/L (135-149)
[2022-04-29 16:03] LABS: Carbon Dioxide* 21 mmol/L (20-32); Creatinine* 2.4 mg/dL (0.5-1.5); Estimated Glomerular Filt Rate 28 ml/min
[2022-04-29 16:04] LABS: Blood Urea Nitrogen* 34 mg/dL (7-30); Calcium* 9.5 mg/dL (8.4-10.6); Glucose* 103 mg/dL (60-115)
[2022-04-29 16:45] LABS: Total Protein Urine 199 mg/dL
[2022-04-29 16:48] LABS: Creatinine Urine 79.5 mg/dL
[2022-05-02 02:19] LABS: Tacrolimus by HPLC-MS/MS 5.5 ng/mL
== END 2022-04-30 15:22 | disposition home or self-care (01) ==
LOC: LAB 13:54
PROVIDERS: PCP Family Medicine
DX: Z94.0 Kidney transplant status (principal); Z79.899 Other long term (current) drug therapy
CPT/HCPCS: 36415; 80048; 80197; 82570; 84156; 85025

== ENCOUNTER 2022-05-19 11:28 | Outpatient (CLI) | payer MEDICARE, BC, SELFPAY ==
--- OUTSIDE RECORDS SUMMARY | 2022-05-19 11:30 | XMS_ITS | Clinical Summary ---
:1950 Author Organization [facility] [place] [address] Care Team Providers Name Role Phone Momo Forbes MD Primary Care Provider [phone] Allergies No known active allergies Medications [...] infection (HC) use Medela Wound Vac at Nursing Home Facility Right foot wound debridement with application [...] Doctor 02/25/2022 Lab Requisition Felicia Tate MD from Last 3 Months Immunizations Name Administration [...] Team Description 07/06/2022 Office Visit Angie Chatterjee, DPM [address] [place] [address] (Wo rk) Health Maintenance Due Date Last [...] Problems Progress BLOOD PRESSURE Blood Pressure No Cj re, - MAINTAINS BP Momo less than MD Christoph 140/90 Medical Devices Implanted Type Area Bait Painter Device Shelf Model / Identifier Expiration Date Ser ial / Lot Drsg Wound 4x5in Matrix Bilayer Right: 08/21/2020 [id number] / Implanted: Qty: 1 on 09/23/2020 by Araceli Fowler DPM at [facility] / [id number] Description: DRSG WOUND 4X5IN MATRIX JYOTI BHAVIK [...] Organization Address City/State/ZIP Code Phon e Number [facility] [address] [place] [address] LABORATORY-CENTRAL 1999 LABORATORY PATH TISSUE EXAM (04/07/2022 11:40 AM CDT)Only the most recent of2 resultswithin the time period is included. Component Value Ref Test Analysis Performed At [facility] gist Range Method Time Signature Case Report Pathology Report ?Case: [id number] ? 04/12/2022 [facility] Authorizing Provider: ??Unkn own, Doctor ?Collected: ? 04/07/2022 1140 ? 11:31 AM LABO RATORY-CE Ordering Location: ? [facility] C[facility]TRAL LAB ?Received: ?04/08/2022 1609 ? CDT NT RAL Pathologist: ? Ricky Lisa ? LABORATORY ? MD Jessie ? Specimen: ?Right Clavicl e ? Final A) SKIN, RIGHT CLAVICLE, WOUND, BIOPSY: 04/12/2022 [facility] Electronically Diagnosis 1. Ulceration with serum crust and underlying granulat ion tissue 11:31 AM LABORATORY-CE signed by 2. Negative for malignancy CDT NTR Ricky Roberts MD on 04/12/20 22 at 11:31 AM Comment The presence 04/12/2022 [facility] of blue and 11:31 AM LABORATORY-CE green ink are CDT NTRAL confirmed on LABORATORY tissue sections. Clinical Mr. Guthrie is 04/12/2022 [facility] Information a 72 y.o. with 11:31 AM [...] LABORATORY LH 04/08/2022 Microscopic The final 04/12/2022 [facility] Description diagnosis is 11:31 AM LABORATORY-CE based on CDT NTRAL microscopic LABORATORY examination of appropriate sections of all specimens. Additional 04/12/2022 [facility] Information Interpreted at [facility], Central Laboratory - [address], [place] [address] 11:31 AM LABORATORY-CE CDT NTRAL LABORATORY Specimen Anatomical Collection Method Collection Time Receive d Time (Source) Location / / Volume Laterality Other (Right 04/07/2022 11:40 04/08/2022 4:09 Clavicle) AM CDT PM CDT Doctor Unknown PATHOLOGY/CYTOLOGY Performing Organization Address City/State/ZIP Code Phon e Number [facility] [address] [place] [address] LABORATORY-CENTRAL 2000 LABORATORY from Last 3 Months Additional Health Concerns Infection Onset Date Last Indicated MRSA ClearanceComment: If >12 months sin ce positive culture, precautions can be discontinued if patient has no MRSA risk factors. 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 right check exclusions for contact precaution dis continuation (if > 12 months since positive culture): resides in acute/intermission coordinator care, receiving hemodialysis, has chronic open wounds/skin damage, has long-te rm percutaneous indwelling medical devic es Exclusions for nares collection (if <12 months since positive culture) include all of the previous exclusions plus patients on antibiotics 7 days prior to collection Insurance Payer Benefit Plan / Subscriber ID Effective Phone Address T ype Group Dates MEDICARE PART MEDICARE PART A [id number] 2011-Prese A TTN: CLAIMS A - HB USE HB ONLY nt [address] [place] [address] MEDICARE PART MEDICARE PART B [id number] 2012-Pres A TTN: CLAIMS B - HB USE HB ONLY ent [address] [place] [address] MEDICARE - PB MEDICARE PB [id number] 2014-Prese ATTN: CLAIMS USE ONLY ONLY nt [address] [place] [address] BLUE CROSS BLUE CROSS OF [id number] 2016-Prese [address] [place] [address] BLUE CROSS BLUE CROSS OF [id number] 2013-Prese [address] [place] [address] MEDICARE PPS HC MEDICARE PPS [id number] 2011-Prese [address] [place] [address] (Home) [place] [address] Diego Guthrie Personal/Family Self [address] (Home) [place] [id number] Diego Guthrie Personal/Family Self [address] (Home) [place] [id number] Diego Guthrie Longterm Self [address] (Home) [place] [id number] Advance Directives Documents on File Type Date Recorded Patient Supervisor Felting Explanati on POLST 09/26/2020 Latest Code Status [...] AM Code Status Discussion: Discussed Care Teams Construction Site Crossing Guard Relationship Specialty Start Date End Date Momo Forbes MD PCP - General Family Practice 01/22/211999 [place] [address]
--- OUTSIDE RECORDS SUMMARY | 2022-05-19 11:31 | XMS_ITS | Encounter Summary ---
:1950 Author Organization [place] Address [address] [place] [address] Care Team Providers Name Role Phone Momo Forbes Primary Care Provider Joseph Quintana MD Unavailable Reason for Visit Reason Onset Date Comments Transplant Lab 05/04/2022 Elevated serum creat inine and proteinuria Encounter Details Date Type Department Care Team Description 05/04/[address] [facility] Gretta Peacock RN Trans plant Lab (Elevated Transplant Clinic serum creatinine and [address] proteinuria) [place] [address] Social History Tobacco Use Types [...] this encounter Miscellaneous Notes Telephone Encounter - Janet Rojas RN - 05/06/2022 3:49 PM CDT Call back from pt. Drinking about 60oz water daily mixed with iced tea Does have N/V/D at times which has been worse the past month Hx UTI with minimal symptoms and c/o urgency all the time Has DM and A1C was 10.2 in October, but states it was 8.0 recently BP controlled on BP medications per report PLAN Increase hydration with water Continue medications Repeat labs early/mid week next week, will include UA/UC Lab letter faxed Telephone Encounter - Gretta Peacock RN - 05/04/2022 10:19 AM CDT ISSUE: elevated serum creatinine: 2.4, above baseline of 1.4-1.6, Rise in proteinuria at 2.5 PLAN: Call and assess hydration status. How much water is he drinking per day? Any recent illness, diarrhea, s/s of a UTI, or medication changes? Any increased intake of alcohol or caffeine? Recent Blood Pressures?: Recommend increasing hydration and repeating labs within 1 week. documented in this encounter Plan of Treatment Not on filedocumented as of this encounter Visit Diagnoses Not on filedocumented in this encounter Care Teams Splitting Machine Feeder Relationship Specialty Start Date End Date Momo Forbes PCP - General Family Practice 01/02/14 [facility] [address] [place] [address] Joseph Quintana, Assigned Nephrology 03/29/[address] [place] [address] [address] [place] [address] documented as of this encounter
--- OUTSIDE RECORDS SUMMARY | 2022-05-19 11:31 | XMS_ITS | Encounter Summary ---
:1950 Author Organization [place] Address [facility] [place] [address] Care Team Providers Name Role Phone Momo Forbes Primary Care Provider Joseph Quintana MD Unavailable Reason for Visit Reason Onset Date Comments Transplant 11/24/2021 Encounter Details Date Type Department Care Team Description 11/24/2021 Telephone [facility] Transplant Obdulia Peacock, design engineering technician Clinic [address] [place] [address] [phone] Social History Tobacco Use Types Packs/Day [...] had labs drawn ~one week ago at [facility], however results have not beenfaxed to [facility]. PLAN: call lab to have results faxed OUTCOME: New labs orders sent. Most recent bmp and cbc requested from october 2021. Tac and UPC due. Left detailed message with instructions to obtain tacrolimus trough level and UPC at earliest convenience. Asked for CB to confirm understanding. Gretta Peacock design engineering technicianSmash Hand [phone] Telephone Encounter - Azael Rodriguez - 11/24/2021 3:32 PM CDT Patient called to touch base with the RNCC regarding some questions. documented in this encounter Plan of Treatment Not on filedocumented as of this encounter Visit Diagnoses Not on filedocumented in this encounter Care Teams Engineering Technical Writer Relationship Specialty Start Date End Date Moom Forbes PCP - General Family Practice 01/02/14 [facility] [address] [place] [address] Joseph Quintana, Assigned Nephrology 03/29/21 MD Provider [address] [place] [address] [address] [place], [place] [address] documented as of this encounter
--- OUTSIDE RECORDS SUMMARY | 2022-05-19 11:31 | XMS_ITS | Encounter Summary ---
:1950 Author Organization [place] Address [address] [place] [address]. [place] [address] Care Team Providers Name Role Phone Momo Forbes Primary Care Provider Joseph Quintana MD Unavailable Reason for Visit Reason Onset Date Comments Erroneous encounter-disregard 05/02/2022 Encounter Details Date Type Department Care Team Description 05/02/2022 Telephone [facility] Gretta Peacock RN Baldev eo Transplant Clinic encounter-disregard [address] [place] [address] Social History Tobacco Use Types [...] on filedocumented in this encounter Care Teams Station Cashier Relationship Specialty Start Date End Date Momo Forbes PCP - General Family Practice 01/02/14 [facility] [address] [place] [address] Joseph Quintana, Assigned Nephrology 03/29/21 MD Provider 7 [facility] [address] [place] [address] documented as of this encounter
--- OUTSIDE RECORDS SUMMARY | 2022-05-19 11:31 | XMS_ITS | Encounter Summary ---
:1950 Author Organization [place] Address Critical access hospital0 [facility] [place] [address] Care Team Providers Name Role Phone Momo Forbes Primary Care Provider Joseph Quintana MD Unavailable Reason for Visit Reason Onset Date Comments Transplant 12/02/2021 Encounter Details Date Type Department Care Team Description 12/02/2021 Telephone [facility] Transplant Obdulia Peacock, [place] sales consultant [facility] [address] [place] [address] [phone] Social History Tobacco Use Types Packs/Day [...] to confirm he received message. Gretta Peacock nissan sales consultantB2B Account Executive [phone] ADDENDUM: left message for patient stating he has active orders at preferred lab. Asked to please obtain a full set of transplant labs as soon as possible. Gretta Peacock nissan sales consultantB2B Account Executive [phone] documented in this encounter Plan of Treatment Not on filedocumented as of this encounter Visit Diagnoses Not on filedocumented in this encounter Care Teams Real Estate Photographer Relationship Specialty Start Date End Date Momo Forbes PCP - General Family Practice 01/02/14 [facility] [address] [place] [address] Joseph Quintana, Assigned Nephrology 03/29/[address] [place] [address] [address] [place] [address] documented as of this encounter
--- OUTSIDE RECORDS SUMMARY | 2022-05-19 11:31 | XMS_ITS | Encounter Summary ---
:1950 Author Organization [place] Address [address] [place] [address] Care Team Providers Name Role Phone Momo Forbes Primary Care Provider Joseph Quintana MD Unavailable Encounter Details Date Type Department Care Team Description 12/09/2021 External Order formerly [facility] Outside, Provide r Results Molecular Diagnostic s [address] [place] [address] Social History Tobacco Use Types Packs/Day Years [...] on filedocumented in this encounter Care Teams Incident Response Specialist Relationship Specialty Start Date End Date Momo Forbes PCP - General Family Practice 01/02/14 [facility] [address] [place] [address] Joseph Quintana, Assigned Nephrology 03/29/21 Provider 717 [facility] 353 [facility] [address] [place] [address] documented as of this encounter
--- OUTSIDE RECORDS SUMMARY | 2022-05-19 11:31 | XMS_ITS | Encounter Summary ---
:1950 Author Organization [place] Address [address] [place] [address] Care Team Providers Name Role Phone Momo Forbes Primary Care Provider Joseph Quintana MD Unavailable Encounter Details Date Type Department Care Team Description 01/19/2022 External Order [facility] Outside, Provide r Results Molecular Diagnostic s [address] [place] [address] Social History Tobacco Use Types Packs/Day Years [...] UA with Microscopic (01/19/2022 11:16 AM CDT) [facility] gist Method Time Signature Color Urine YEL YELLOW NON-INTERFAC (External) ED (ONBASE SCANS) Appearance Urine CLEAR CLEAR NON-INTERFAC (External) ED (ONBASE SCANS) Glucose Urine 2+ NEGATIVE NON-INTERFAC (External) ED (ONBASE SCANS) Bilirubin Urine NEG NEGATIVE NON-INTERFAC (External) ED (ONBASE SCANS) Ketones Urine NEG NEGATIVE NON-INTERFAC (External) ED (ONBASE SCANS) Specific [place] 1.010 1.005 - NON-INTERFAC Urine (External) 1.030 [...] filedocumented in this encounter Care Teams Pipe Stress Engineer Relationship Specialty Start Date End Date Momo Forbes PCP - General Family Practice 01/02/14 [facility] [address] [place] [address] Joseph Quintana, Assigned Nephrology 03/29/[address] [place] [address] 1932 [place], [place] [address] documented as of this encounter
--- OUTSIDE RECORDS SUMMARY | 2022-05-19 11:31 | XMS_ITS | Encounter Summary ---
:1950 Author Organization [place] Address [facility] [place] [address] Care Team Providers Name Role Phone Momo Forbes Primary Care Provider Joseph Quintana MD Unavailable Reason for Visit Reason Onset Date Comments Left Message To Call 05/06/2022 Left 05/06/2022 at 11:55PM., Wanted to discuss lab results Encounter Details Date Type Department Care Team Description 05/06/2022 Telephone [facility] Gretta Peacock RN Left Message To Call Transplant Clinic (Left 05/06/[address] [place] [address] SE 11:55PM., Wanted to [place], [place] discuss lab results) [phone] Social History Tobacco Use Types Packs/Day [...] Encounter - Janet Rojas RN - 05/06/2022 4:05 PM CDT See other encounter Telephone Encounter - Mary Whitehead - 05/06/2022 12:28 PM CDT Left VM 05/06/2022 at 11:55PM., Wanted to discuss lab results documented in this encounter Plan of Treatment Not on filedocumented as of this encounter Visit Diagnoses Not on filedocumented in this encounter Care Teams Party Supply Specialist Relationship Specialty Start Date End Date Momo Forbes PCP - General Family Practice 01/02/14 [facility] [address] [place] [address] Joseph Quintana, Assigned Nephrology 03/29/21 MD Provider 717 [facility] 353 [facility] 1932 [place] [address] documented as of this encounter
--- OUTSIDE RECORDS SUMMARY | 2022-05-19 11:31 | XMS_ITS | Clinical Summary ---
:1950 Author Organization [place] Address Critical access hospital0 [facility] [place] [address] Care Team Providers Name Role Phone Momo [...] Problem list name updated by automated p [employer]. Provider to review Gout 12/02/2011 Peripheral neuropathy 12/02/2011 Diabetic retinopathy 12/02/2011 HTN, kidney transplant related 12/02/2011 Overview: Problem list name updated by automated p [employer] Provider to review DM (diabetes mellitus), type 2 12/02/2011 History of tobacco use 12/02/2011 Thrombocytopenia 12/02/2011 Malaise and fatigue 12/02/2011 Overview: Problem list name updated by automated p [employer] Provider to review Depression Resolved Problems Problem [...] Encounters Date Type Specialty Care Team Description 05/06/2022 Telephone [facility] Gretta Peacock RN Left Neymarjo ann baldev To Call Transplant (Left VM 2021 at 11:55PM., Diego ntjoesph to discuss lab results) 05/04/2022 Telephone [facility] Gretta Peacock RN Transplant Lab Transplant (Elevated serum creatinine and proteinuria) 05/02/2022 Telephone [facility] Gretta Peacock RN Erroneous Transplant encounter-disre sebastian 04/29/2022 External Order Lab Outside, Provider Results 04/13/2022 Telephone [facility] Gretta Peacock RN Voicemail Transplant from Last 3 Months Immunizations Name Administration [...] Comments Blood Pressure 169/76 10/09/2019 2:35 PM ROCKET PROPELLANT PLANT SUPERVISOR Pulse 67 10/09/2019 2:35 PM ROCKET PROPELLANT PLANT SUPERVISOR Temperature 36.5 ??C (97.7 ??F) 10/17/2018 1:54 PM ROCKET PROPELLANT PLANT SUPERVISOR Respiratory Rate 18 10/25/2016 4:39 PM ROCKET PROPELLANT PLANT SUPERVISOR Oxygen Saturation 95% 10/09/2019 2:35 PM ROCKET PROPELLANT PLANT SUPERVISOR Inhaled Oxygen Concentration - - Weight 132.5 kg (292 lb 1.6 oz) 10/09/2019 2:35 PM ROCKET PROPELLANT PLANT SUPERVISOR Height 182.9 cm (6') 10/10/2017 2:25 PM ROCKET PROPELLANT PLANT SUPERVISOR Body Mass Index 39.62 10/10/2017 2:25 PM ROCKET PROPELLANT PLANT SUPERVISOR Plan of Treatment Health Maintenance Due [...] 11/16/2021, 08/08/2020, 05/15/2018, Additional history exists BMP 04/29/2023 04/29/2022, 01/19/2022, 12/09/2021, Additional history exists MICROALBUMIN 04/29/2023 04/29/2022, 01/19/2022, 12/09/2021, Additional history exists DTAP/TDAP/TD IMMUNIZATION 01/12/2029 01/12/2019, 01/12/2019 (2 - Td or Tdap) HEPATITIS C SCREENING Completed 02/02/2014, 02/08/2012 IPV IMMUNIZATION Aged Out No longer eligi ble based on patient 's age to complete this topic MENINGITIS IMMUNIZATION Aged Out No longe r eligible based on patient 's age to complete this topic Medical Devices Explanted Type Area Balance Wheel Motion Inspector Device Shelf Model / Identifier Expiration Serial / Date Lot Stent Ureteral Childress Renal Transplant [id number] Right: [employer] 11/19/2016 [id number] / Implanted: Qty: 1 on 02/02/2014 by Migel Viveros MD at [facility] U[employer] / Explanted: Qty: 1 on 04/01/2014 by Celina Helton MD at [facility] [id number] Procedures Procedure Name Priority Date/Time Associated Comments Diagnosis CBC WITH PLATELETS & Routine 04/29/2022 11:40 Res ults for this DIFFERENTIAL AM CDT procedure are i n the results section. TACROLIMUS BY TANDEM Routine 04/29/2022 11:40 Res ults for this MASS SPECTROMETRY AM CDT procedure are in the results section. PROTEIN RANDOM URINE Routine 04/29/2022 11:40 Res ults for this AM CDT procedure are i n the results section. BASIC METABOLIC PANEL Routine 04/29/2022 11:40 Re sults for this AM CDT procedure are i n the results section. from Last 3 Months Results (ABNORMAL) CBC with Platelets & Differential (04/29/2022 11:40 AM CDT) [facility] gist Method Time Signature WBC Count 4.89 4.50 - NON-INTERFACE (External) 11.00 D (ONBASE K/uL SCANS) RBC Count 4.48 4.30 - NON-INTERFACE (External) 5.90 m/uL D (ONBASE SCANS) Hemoglobin 12.0 (L) 13.5 - NON-INTERFACE (External) 17.5 D (ONBASE gm/dL SCANS) Hematocrit 38.7 37.0 - NON-INTERFACE (External) 53.0 % D (ONBASE SCANS) MCV (External) 86 80 - 100 NON-INTERFACE fL D (ONBASE SCANS) MCH (External) 27 26 - 34 NON-INTERFACE pg D (ONBASE SCANS) MCHC (External) 31 (L) 32 - 36 NON-INTERFACE gm/dL D (ONBASE SCANS) Platelet Count 109 (L) 140 - 440 NON-INTERFACE (External) K/uL D (ONBASE SCANS) RDW (External) 15.7 (H) 11.5 - NON-INTERFACE 15.5 % D (ONBASE SCANS) % Neutrophils 64.7 42.0 - NON-INTERFACE (External) 72.0 % D (ONBASE SCANS) % Lymphocytes 20.0 20 - 44 % NON-INTERFACE (External) D (ONBASE SCANS) % Monocytes 8.2 0.0 - NON-INTERFACE (External) 11.0 % D (ONBASE SCANS) % Eosinophils 6.5 0.0 - 7.0 NON-INTERFACE (External) % D (ONBASE SCANS) % Basophils 0.4 0.0 - 3.0 NON-INTERFACE (External) % D (ONBASE SCANS) Absolute 3.16 1.7 - 7.0 NON-INTERFACE Neutrophils K/uL D (ONBASE (External) SCANS) Absolute 0.98 0.90 - NON-INTERFACE Lymphocytes 2.90 K/uL D (ONBASE (External) SCANS) Absolute 0.40 0.00 - NON-INTERFACE Monocytes 0.90 K/UL D (ONBASE (External) SCANS) Absolute 0.32 0.00 - NON-INTERFACE Eosinophils 0.50 K/uL D (ONBASE (External) SCANS) Absolute 0.02 0.00 - NON-INTERFACE Basophils 0.30 K/uL D (ONBASE (External) SCANS) Absolute Immature 0.01 0.00 - NON-INTERFAC E Granulocytes 0.30 K/uL D (ONBASE (External) SCANS) Specimen (Source) Anatomical Collection Method Collection Time Re ceived Time Location / / Volume Laterality Blood 04/29/2022 11:40 AM CDT Narrative [facility] - 04/30/2022 12:29 PM CDT Verified by Andrade Barajas on 04/30/2022. Provider Outside LAB - BLOOD ORDERABLES Performing Organization Address City/State/ZIP Code Phon e Number [facility] NON-INTERFACED (ONBASE SCANS) Tacrolimus by Tandem Mass Spectrometry (04/29/2022 11:40 AM CDT) P athologist Signature Tacrolimus(FK-5 5.5 5.0 - 15.0 NON-INTERFACE D 06) (External) ng/mL (ONBASE SCANS) Specimen (Source) Anatomical Collection Method Collection Time Re ceived Time Location / / Volume Laterality Blood 04/29/2022 11:40 AM CDT Narrative [facility] - 05/03/2022 12:33 PM CDT Verified by Prfaul Huff on 2021. Provider Outside LAB - BLOOD ORDERABLES Performing Organization Address City/State/[facility] Code Phon e Number [facility] NON-INTERFACED (ONBASE SCANS) (ABNORMAL) Protein random urine (04/29/2022 11:40 AM CDT) Analysis Performed At Patho logist Time Signature Creatinine 79.5 mg/dL NON-INTERFACE Urine mg/dL D (ONBASE (External) SCANS) Protein Random 199 mg/dL NON-INTERFACE Urine D (ONBASE (External) SCANS) Protein Total 2.50 (H) 0 - 0.19 NON-INTERFACE Ur per Cr D (ONBASE (External) SCANS) Specimen (Source) Anatomical Collection Method Collection Time Re ceived Time Location / / Volume Laterality Urine 04/29/2022 11:40 AM CDT Narrative [facility] - 04/30/2022 12:29 PM CDT Verified by Andrade Barajas on 04/30/2022. Provider Outside LAB - URINE ORDERABLES Performing Organization Address [facility] Phon e Number [facility] NON-INTERFACED (ONBASE SCANS) (ABNORMAL) Basic metabolic panel (04/29/2022 11:40 AM CDT) P athologist Signature Sodium 144 135 - 149 NON-INTERFACE (External) mmol/L D (ONBASE SCANS) Potassium 5.0 3.6 - 5.1 NON-INTERFACE (External) mmol/L D (ONBASE SCANS) Chloride 111 96 - 114 NON-INTERFACE (External) mmol/L D (ONBASE (External) SCANS) CO2 (External) 21 20 - 32 NON-INTERFACE mmol/L D (ONBASE SCANS) Urea Nitrogen 34 (H) 7 - 30 NON-INTERFACE (External) mg/dL D (ONBASE SCANS) Creatinine 2.4 (H) 0.5 - 1.5 NON-INTERFACE (External) mg/dL D (ONBASE SCANS) GFR Estimated 28 ml/min NON-INTERFACE (External) D (ONBASE SCANS) Calcium 9.5 8.4 - 10.6 NON-INTERFACE (External) mg/dL D (ONBASE SCANS) Glucose 103 60 - 115 NON-INTERFACE (External) mg/dL D (ONBASE SCANS) Specimen (Source) Anatomical Collection Method Collection Time Re ceived Time Location / / Volume Laterality Blood 04/29/2022 11:40 AM CDT Narrative [facility] - 04/30/2022 12:29 PM CDT Verified by Andrade Barajas on 04/30/2022. Provider Outside LAB - BLOOD ORDERABLES Performing Organization Address City/State/ZIP Code Phon e Number [facility] NON-INTERFACED (ONBASE SCANS) from Last 3 Months Insurance Payer Benefit Plan / Subscriber ID Effective Phone Address T ype Group Dates MEDICARE MEDICARE [id number] 2011-Prese [phone] ATTN RON[place] Medicare nt 40 [address] [place] [address] BCBS BCBS OF [place] [id number] 2016-Prese [phone] [address] [address] Indemnity nt 00 [place] [address] Digeo Guthrie Personal/Family Self [address] [place] (Home) [facility] [place] [address] Advance Directives For more information, please contact: [phone] Latest Code Status on File Code Status Date Activated Date Inactivated Comments Full Code 04/01/2014 9:03 AM Full Code 02/08/2014 7:12 AM 04/01/2014 9:03 AM Full Code 02/03/2014 12:56 AM 02/08/2014 7:12 AM Care Teams Monotypist Relationship Specialty Start Date End Date Momo Forbes PCP - General Family Practice 01/02/14 [facility] [address] [place] [address] Joseph Quintana, Assigned Nephrology 03/29/21 MD Provider [address] [place] [address] [address] [place] [address]
--- OUTSIDE RECORDS SUMMARY | 2022-05-19 11:31 | XMS_ITS | Encounter Summary ---
:1950 Author Organization [place] Address [facility] [place] [address] Care Team Providers Name Role Phone Momo Forbes Primary Care Provider Joseph Quintana MD Unavailable Reason for Visit Reason Onset Date Comments Transplant Lab 12/10/2021 Encounter Details Date Type Department Care Team Description 12/10/2021 Telephone [facility] Transplant Mati Recinos RN Transplant Lab Clinic [address] [place] [address] [phone] Social History Tobacco Use Types Packs/Day [...] on filedocumented in this encounter Care Teams Applications Intern Relationship Specialty Start Date End Date Momo Forbes PCP - General Family Practice 01/02/14 [facility] [address] [place] [address] Joseph Quintana, Assigned Nephrology 03/29/21 MD Provider 717 [facility] 353 [facility] [address] [place] [address] documented as of this encounter
--- OUTSIDE RECORDS SUMMARY | 2022-05-19 11:31 | XMS_ITS | Encounter Summary ---
:1950 Author Organization [place] Address [facility] [place] [address] Care Team Providers Name Role Phone Momo Forbes Primary Care Provider Joseph Quintana MD Unavailable Reason for Visit Reason Onset Date Comments Transplant 01/21/2022 Hyperglycemia, eleva moni [facility] Encounter Details Date Type Department Care Team Description 01/21/2022 Telephone [facility] Gretta Peacock RN Trans plant Transplant Clinic (Hyperglycemia, elevated [address] [facility] [place] [address] Social History Tobacco Use Types [...] 12:07 PM CDT ISSUE: trend up in [facility], hyperglycemia OUTCOME: phone call attempted X3. Will send letter via mail. Gretta Peacock RN Teletray Operator [phone] documented in this encounter Plan of Treatment Not on filedocumented as of this encounter Visit Diagnoses Not on filedocumented in this encounter Care Teams Board Design Engineer Relationship Specialty Start Date End Date Momo Forbes PCP - General Family Practice 01/02/14 [facility] [address] [place] [address] Joseph Quintana, Assigned Nephrology 03/29/21 MD Provider [address] [place] [address] [address] [place] [address] documented as of this encounter
--- OUTSIDE RECORDS SUMMARY | 2022-05-19 11:31 | XMS_ITS | Encounter Summary ---
:1950 Author Organization [place] Address [address] [place] [address] Care Team Providers Name Role Phone Momo Forbes Primary Care Provider Joseph Quintana MD Unavailable Encounter Details Date Type Department Care Team Description 04/29/2022 External Order [facility] Outside, Provide r Results Molecular Diagnostic s [address] [place] [address] Social History Tobacco Use Types Packs/Day Years [...] section. documented in this encounter Results Tacrolimus by Tandem Mass Spectrometry (04/29/2022 11:40 AM CDT) P athologist Signature Tacrolimus(FK-5 5.5 5.0 - 15.0 NON-INTERFACE D 06) (External) ng/mL (ONBASE SCANS) Specimen (Source) Anatomical Collection Method Collection Time Re ceived Time Location / / Volume Laterality Blood 04/29/2022 11:40 AM CDT Narrative [facility] - 05/03/2022 12:33 PM CDT Verified by Praful Huff on 2021. Provider Outside LAB - [...] SCANS) (ABNORMAL) CBC with Platelets & Differential (04/29/2022 11:40 AM CDT) Patholo gist Method Time Signature WBC Count 4.89 [...] Laterality Blood 04/29/2022 11:40 AM CDT Narrative [facility] - 04/30/2022 12:29 PM CDT Verified by Andrade Barajas on 04/30/2022. Provider Outside LAB - BLOOD ORDERABLES Performing Organization Address City/State/ZIP Code Phon e Number [facility] NON-INTERFACED (ONBASE SCANS) documented in this encounter Visit Diagnoses Not on filedocumented in this encounter Care Teams Field Consultant Relationship Specialty Start Date End Date Momo Forbes PCP - General Family Practice 01/02/14 [facility] [address] [place] [address] Joseph Quintana, Assigned Nephrology 03/29/21 Provider 717 [facility] 353 [facility] [address] [place] [address] documented as of this encounter
--- OUTSIDE RECORDS SUMMARY | 2022-05-19 11:31 | XMS_ITS | Encounter Summary ---
:1950 Author Organization [place] Address [facility] [place] [address] Care Team Providers Name Role Phone Momo Forbes Primary Care Provider Joseph Quintana MD Unavailable Reason for Visit Reason Onset Date Comments Voicemail 04/13/2022 Encounter Details Date Type Department Care Team Description 04/13/2022 Telephone [facility] Transplant Obdulia Peacock, BOGDAN Voicemail Clinic [address] [place] [address] [phone] Social History Tobacco Use Types Packs/Day [...] to patient via mail Gretta Peacock RN Religious Ritual Slaughterer [phone] Telephone Encounter - Adriana Raza - 04/13/2022 2:31 PM CDT Voicemail Date/Time: 04/13/22 2:27 pm Reason for call: Diego received a letter stating we have been trying ot reach him so he was responding documented in this encounter Plan of Treatment Not on filedocumented as of this encounter Visit Diagnoses Not on filedocumented in this encounter Care Teams Interlacer Relationship Specialty Start Date End Date Momo Forbes PCP - General Family Practice 01/02/14 [facility] [address] [place] [address] Joseph Quintana, Assigned Nephrology 03/29/21 MD Provider [address] [place] [address] documented as of this encounter
--- OUTSIDE RECORDS SUMMARY | 2022-05-19 11:32 | XMS_ITS | Encounter Summary ---
:1950 Author Organization [place] Address [facility] [place] [address] Care Team Providers Name Role Phone Momo Forbes Primary Care Provider Reason for Visit Reason Onset Date Comments Transplant 01/07/2021 Encounter Details Date Type Department Care Team Description 01/07/2021 Telephone [facility] Barbie Ugaldelanlynda Transplant Clinic BOGDAN Nam [address] [place] [address] [phone] Social History Tobacco Use Types Packs/Day [...] CDT Patient Call: Transplant Lab/Orders Route to FIELD UNDERWRITER Post Transplant Days: 2530 When patient is less than 60 days post-transplant, route high priority Reason for Call: Annual lab reorder fax labs to [facility] lab at [phone] Labs drawn Waiting fororders Callback needed? No documented in this encounter Plan of Treatment Not on filedocumented as of this encounter Visit Diagnoses Not on filedocumented in this encounter Care Teams Public Health Epidemiologist Relationship Specialty Start Date End Date Momo Forbes PCP - General Family Practice 01/02/14 [facility] [address] [place] [address] documented as of this encounter
--- OUTSIDE RECORDS SUMMARY | 2022-05-19 11:32 | XMS_ITS | Encounter Summary ---
:1950 Author Organization [place] Address [facility] [place] [address] Care Team Providers Name Role Phone ForbesMomo Primary Care Provider Reason for Visit Reason Comments Clinic Care Coordination - Follow-up Encounter Details Date Type Department Care Team Description 11/16/[address] [facility] Sejal Rodriguez Care Nephrology Clinic BOGDAN Llanos Coordination - [place] [phone] [place] [address] (Work) [place] [address] Social History Tobacco Use Types [...] filedocumented in this encounter Care Teams Stone Processing Machine Operator Relationship Specialty Start Date End Date Momo Forbes PCP - General Family Practice 01/02/14 [facility] [address] [place] [address] documented as of this encounter
--- OUTSIDE RECORDS SUMMARY | 2022-05-19 11:32 | XMS_ITS | Encounter Summary ---
:1950 Author Organization [place] Address [facility] [place] [address] Care Team Providers Name Role Phone Momo Forbes Primary Care Provider Joseph Quintana MD Unavailable Encounter Details Date Type Department Care Team Description 07/08/2020 External Order [facility] Outside, Provider Results Transplant Clinic [address] [place] [phone] Social History Tobacco Use Types Packs/Day [...] 9:23 AM R esults for this DIFFERENTIAL RADIOLOGIC TECHNOLOGY PROGRAM DIRECTOR procedure are i n the results section. TACROLIMUS BY TANDEM Routine 07/08/2020 9:23 AM R esults for this MASS SPECTROMETRY RADIOLOGIC TECHNOLOGY PROGRAM DIRECTOR procedure are in the results section. PROTEIN RANDOM URINE Routine 07/08/2020 9:23 AM R esults for this RADIOLOGIC TECHNOLOGY PROGRAM DIRECTOR procedure are i n the results section. HEMOGLOBIN A1C Routine 07/08/2020 9:23 AM Results for this RADIOLOGIC TECHNOLOGY PROGRAM DIRECTOR procedure are i n the results section. HEMOGLOBIN A1C Routine 07/08/2020 9:23 AM Results for this RADIOLOGIC TECHNOLOGY PROGRAM DIRECTOR procedure are i n the results section. BASIC METABOLIC PANEL Routine 07/08/2020 9:23 AM Results for this RADIOLOGIC TECHNOLOGY PROGRAM DIRECTOR procedure are i n the results section. documented in this encounter Results (ABNORMAL) Protein random urine with Creat Ratio (07/08/2020 9:23 AM RADIOLOGIC TECHNOLOGY PROGRAM DIRECTOR) Analysis Performed At Patho logist Time Signature Protein Random 73 mg/dL LABDE SCAN Urine (External) Creatinine 65 mg/dL LABDE SCAN Urine mg/dL (External) Protein Total 1.12 (H) 0 - 0.19 LABDE SCAN Ur per Cr (External) Specimen (Source) Anatomical Collection Method Collection Time Re ceived Time Location / / Volume Laterality Urine specimen 07/08/2020 9:23 AM (specimen) RADIOLOGIC TECHNOLOGY PROGRAM DIRECTOR Narrative BREEZE PFT - 07/11/2020 11:13 AM RADIOLOGIC TECHNOLOGY PROGRAM DIRECTOR Verified by Praful Huff on 2019. Patient Reported LAB - URINE ORDERABLES Performing Organization Address City/State/ZIP Code Phon e Number [facility] LABDE SCAN (ABNORMAL) Hemoglobin A1c (07/08/2020 9:23 AM RADIOLOGIC TECHNOLOGY PROGRAM DIRECTOR) Analysis Performed At Patho logist Time Signature Hemoglobin A1C 12.3 (H) 0 - 5.6 % LABDE SCAN (External) Specimen (Source) Anatomical Collection Method Collection Time Re ceived Time Location / / Volume Laterality Blood specimen 07/08/2020 9:23 AM (specimen) RADIOLOGIC TECHNOLOGY PROGRAM DIRECTOR Narrative [facility]ZE PFT - 07/11/2020 11:13 AM RADIOLOGIC TECHNOLOGY PROGRAM DIRECTOR Verified by Praful Huff on 2019. Patient Reported LAB - BLOOD ORDERABLES Performing Organization Address City/State/ZIP Code Phon e Number [facility]FT LABDE SCAN Tacrolimus level (07/08/2020 9:23 AM RADIOLOGIC TECHNOLOGY PROGRAM DIRECTOR) P athologist Signature Tacrolimus(FK- 2.2 See scanned LABDE SCAN 506) report ng/mL (External) Specimen (Source) Anatomical Collection Method Collection Time Re ceived Time Location / / Volume Laterality Blood specimen 07/08/2020 9:23 AM (specimen) RADIOLOGIC TECHNOLOGY PROGRAM DIRECTOR Narrative BREEZE PFT - 07/11/2020 11:13 AM RADIOLOGIC TECHNOLOGY PROGRAM DIRECTOR Verified by Praful Huff on 2019. Patient Reported LAB - BLOOD ORDERABLES Performing Organization Address City/State/ZIP Code Phon e Number [facility] LABDE SCAN (ABNORMAL) Hemoglobin A1c (07/08/2020 9:23 AM RADIOLOGIC TECHNOLOGY PROGRAM DIRECTOR) Analysis Performed At [facility] logist Time Signature Hemoglobin A1C 12.3 (H) 0 - 5.6 % LABDE SCAN (External) Specimen (Source) Anatomical Collection Method Collection Time Re ceived Time Location / / Volume Laterality Blood specimen 07/08/2020 9:23 AM (specimen) RADIOLOGIC TECHNOLOGY PROGRAM DIRECTOR Narrative BREEZE PFT - 07/09/2020 11:03 AM RADIOLOGIC TECHNOLOGY PROGRAM DIRECTOR Verified by Andrade Barajas on 07/09/2020. Patient Reported LAB - BLOOD ORDERABLES Performing Organization Address [facility] Phon e Number BREEZE PFT LABDE SCAN (ABNORMAL) Basic metabolic panel (07/08/2020 9:23 AM RADIOLOGIC TECHNOLOGY PROGRAM DIRECTOR) Analysis Performed At [facility] logist Time Signature Calcium 10.1 8.4 [...] Laterality Blood specimen 07/08/2020 9:23 AM (specimen) RADIOLOGIC TECHNOLOGY PROGRAM DIRECTOR Narrative BREEZE PFT - 07/09/2020 11:02 AM RADIOLOGIC TECHNOLOGY PROGRAM DIRECTOR Verified by Andrade Barajas on 07/09/2020. Patient Reported LAB - BLOOD ORDERABLES Performing Organization Address City/[facility]/ZIP Code Phon e Number BREEZE PFT LABDE SCAN (ABNORMAL) CBC with platelets differential (07/08/2020 9:23 AM RADIOLOGIC TECHNOLOGY PROGRAM DIRECTOR) [facility] gist Method Time Signature WBC Count 4.32 [...] Laterality Blood specimen 07/08/2020 9:23 AM (specimen) RADIOLOGIC TECHNOLOGY PROGRAM DIRECTOR Narrative MARLEN[place] PFT - 07/09/2020 10:52 AM RADIOLOGIC TECHNOLOGY PROGRAM DIRECTOR Verified by Praful Huff on 2019. Patient Reported LAB - BLOOD ORDERABLES Performing Organization Address City/State/ZIP Code Phon e Number BREEZE PFT LABDE SCAN documented in this encounter Visit Diagnoses Not on filedocumented in this encounter Care Teams Overcoil Stepper Relationship Specialty Start Date End Date Momo Forbes PCP - General Family Practice 01/02/14 [facility] [address] [place] [address] Joseph Quintana, Assigned Nephrology 03/29/21 MD Provider [address] [place] [address] [address] [place], [place] [address] documented as of this encounter
--- OUTSIDE RECORDS SUMMARY | 2022-05-19 11:32 | XMS_ITS | Encounter Summary ---
:1950 Author Organization [place] Address [facility] 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 Per Dr. Presleynotblaze from visit in 10/09/19: # Diabetes: Poorly controlled (HbA1c >9%) Last HbA1c: 13.7%. - Management as per primary care. - Recommended all blood sugars stay below 200, with fasting between 90 and 130. ?? Latrell states that he lost his blood sugar meter but he can pick one up at [facility]. He asked how often he should [...] level. Latrell states he returns to 08/08. NG HOST Telephone Encounter - Cristy Chen LPN - 07/08/2020 3:39 PM CST DATE: 07/08/2020 TIME OF RECEIPT FROM LAB: 3:30 PM LAB TEST: Glucose LAB VALUE: 407 RESULTS GIVEN WITH READ-BACK TO (PROVIDER): Barbie Ugalde RN TIME LAB VALUE REPORTED TO PROVIDER: 3:39 PM NG HOST documented in this encounter Plan of Treatment Not on filedocumented as of this encounter Visit Diagnoses Not on filedocumented in this encounter Care Teams Taffy Puller Relationship Specialty Start Date End Date Momo Forbes PCP - General Family Practice 01/02/14 [facility] [address] [place] [address] documented as of this encounter
--- OUTSIDE RECORDS SUMMARY | 2022-05-19 11:32 | XMS_ITS | Encounter Summary ---
:1950 Author Organization [place] Address [facility] [place] [address] Care Team Providers Name Role Phone Momo Forbes Primary Care Provider Joseph Quintana MD Unavailable Encounter Details Date Type Department Care Team Description 05/26/2020 External Order [facility] Outside, Provider Results Transplant Clinic [address] [place] [phone] Social History Tobacco Use Types Packs/Day [...] with platelets differential (05/26/2020 10:25 AM CDT) [facility] Method Time Signature WBC Count 4.49 [...] filedocumented in this encounter Care Teams Communications Scientist Relationship Specialty Start Date End Date Momo Forbes PCP - General Family Practice 01/02/14 [facility] [address] [place] [address] Joseph Quintana, Assigned Nephrology 03/29/21 MD Provider 7[address] [facility] 353 [facility] [address] [place], [place] [id number] documented as of this encounter
--- OUTSIDE RECORDS SUMMARY | 2022-05-19 11:32 | XMS_ITS | Encounter Summary ---
:1950 Author Organization [place] Address [facility], [id number] [facility] [place] [address] Care Team Providers Name Role Phone Momo Forbes Primary Care Provider Reason for Visit Reason Onset Date Comments Refill Request 03/18/2020 Mycophenolate and Pr ograf 1mg Encounter Details Date Type Department Care Team Description 03/18/2020 Refill [facility] Joseph Quintana Refill R equest Nephrology Clinic MD Herminio (Mycophenolate and [place] [address] [place] [address] SE Prograf 1mg) 909 [facility] 353 [facility] [address] [place], [place] [phone] Social History Tobacco Use Types Packs/Day Years [...] transplant documented in this encounter Care Teams Room Attendant Relationship Specialty Start Date End Date Momo Forbes PCP - General Family Practice 01/02/14 [facility] [address] [place] [address] documented as of this encounter
--- OUTSIDE RECORDS SUMMARY | 2022-05-19 11:32 | XMS_ITS | Encounter Summary ---
:1950 Author Organization [place] Address [facility] [place] [address] Care Team Providers Name Role Phone Forbes, Momo He Primary Care Provider Encounter Details Date Type Department Care Team Description 10/23/2020 Telephone [facility] Barbie Ugalde Transplant Clinic BOGDAN Nam [address] [place], [place] [phone] Social History Tobacco Use [...] Barbie Ugalde RN - 10/23/2020 4:27 PM FILM COLOR TESTER Returned call and left second voicemail message. Patient mentioned in previous phone call he was interested in donating his body upon passing to [facility] for science. Please sent to following website for more information: [email or web address] COLOR TESTER Telephone Encounter - Gladis Sosa RN - 10/23/2020 3:21 PM CST Patient Call: Voicemail Date/Time: 10/23/20 139pm Reason for call: Patient left a message requesting a call back COLOR TESTER documented in this encounter Plan of Treatment Not on filedocumented as of this encounter Visit Diagnoses Not on filedocumented in this encounter Care Teams Cnc Machine Setter Relationship Specialty Start Date End Date Momo Forbes PCP - General Family Practice 01/02/14 [facility] [address] [place] [address] documented as of this encounter
--- OUTSIDE RECORDS SUMMARY | 2022-05-19 11:32 | XMS_ITS | Encounter Summary ---
:1950 Author Organization [place] Address [address] [place] [address] Care Team Providers Name Role Phone Momo Forbes Primary Care Provider Joseph Quintana MD Unavailable Reason for Visit Reason Onset Date Comments Transplant 09/22/2021 Encounter Details Date Type Department Care Team Description 09/22/2021 Telephone [facility] BOGDAN Nam [address] [place] [phone] Social History Tobacco Use Types Packs/Day [...] Barbie Ugalde RN - 09/22/2021 2:16 PM TRANSITIONAL CARE MANAGER Post discharge from [facility] 09/20/21; to rehab/TCU due to wound on stump; can't wear prosthetic until healed. UTI on Cephelaxin 500 mg TID. Katharine TCU Unit Phone [facility] [phone] Phone RN mgr Baker [phone] Discussed Prograf dose was 1.5 mg at hospital. Should be 1 mg AM/0.5 mg PM. Repeat level with BMP [facility] 09/24/21. Verbal orders taken by admissions. Barbie Crisostomo, RN, BSN Solid Organ Transplant, Post Kidney and Pancreas Transplant Roller Leveler [phone] SITIONAL CARE MANAGER Telephone Encounter - Azael Rodriguez - 09/22/2021 12:09 PM CST Katharine under the new name [facility] TCU has questions regarding medicationsand lab. SITIONAL CARE MANAGER documented in this encounter Plan of Treatment Not on filedocumented as of this encounter Visit Diagnoses Not on filedocumented in this encounter Care Teams Couturiere Relationship Specialty Start Date End Date Momo Forbes PCP - General Family Practice 01/02/14 [facility] [address] [place] [address] Joseph Quintana, Assigned Nephrology 03/29/21 MD Provider [address] [place] [address] [address] [place] [address] documented as of this encounter
--- OUTSIDE RECORDS SUMMARY | 2022-05-19 11:32 | XMS_ITS | Encounter Summary ---
:1950 Author Organization [place] Address [facility] [place] [address] Care Team Providers Name Role Phone ForbesMomo Primary Care Provider Reason for Visit Reason Onset Date Comments Transplant 10/23/2020 Encounter Details Date Type Department Care Team Description 10/23/2020 Telephone [facility] Trans[facility] BOGDAN Nam [address] [place] [address] [phone] Social History Tobacco Use Types Packs/Day [...] Barbie Ugalde RN - 10/23/2020 1:10 PM PLAYER DEVELOPMENT MANAGER Latrell reports his labs were done yesterday morning at [facility]. Last night ended upat ER at [facility]. Hospital printed out copy of labs and he is worried about creatinine. Latrell states he had R foot infection that needed to be cleaned out; Had surgery last day of August onfoot at [place]. Was hospitalized 10 days before going to [...] call back to schedule. Call placed to [facility] lab to fax results. Per Lab need to speak with information management department to release records or go thru [facility] to have orders faxed. Call then returned [...] and repeating post-transplant labs in 1-2 weeks. ER DEVELOPMENT MANAGER Telephone Encounter - Tasia Mack - 10/23/2020 10:03 AM CST Patient Call: Transplant Lab/Orders Route to FAMILY AND CONSUMER EDUCATION TEACHER Post Transplant Days: 2455 When patient is less than 60 days post-transplant, route high priority Reason for Call: Discuss lab results; which results? creatine level Callback needed? Yes Return Call Needed Same as documented in contacts section When to return call?: Greater than one day: Route standard priority ER DEVELOPMENT MANAGER documented in this encounter Plan of Treatment Not on filedocumented as of this encounter Visit Diagnoses Not on filedocumented in this encounter Care Teams Robot Programmer Relationship Specialty Start Date End Date Momo Forbes PCP - General Family Practice 01/02/14 [facility] [address] [place] [address] documented as of this encounter
--- OUTSIDE RECORDS SUMMARY | 2022-05-19 11:32 | XMS_ITS | Encounter Summary ---
:1950 Author Organization [place] Address [facility] [place] [address] Care Team Providers Name Role Phone Momo Forbes Primary Care Provider Joseph Quintana MD Unavailable Encounter Details Date Type Department Care Team Description 08/08/2020 External Order [facility] Outside, Provider Results Transplant Clinic [address] [place] [phone] Social History Tobacco Use Types Packs/Day [...] 08/08/2020 11:43 Results f or this AM KINDERGARTEN INSTRUCTIONAL ASSISTANT procedure are i n the results section. TACROLIMUS BY TANDEM Routine 08/08/2020 11:34 Res ults for this MASS SPECTROMETRY AM KINDERGARTEN INSTRUCTIONAL ASSISTANT procedure are in the results section. LIPID PROFILE Routine 08/08/2020 11:34 Results fo r this AM KINDERGARTEN INSTRUCTIONAL ASSISTANT procedure are i n the results section. ALT Routine 08/08/2020 11:34 Results for this AM KINDERGARTEN INSTRUCTIONAL ASSISTANT procedure are i n the results section. BASIC METABOLIC PANEL Routine 08/08/2020 11:34 Re sults for this AM KINDERGARTEN INSTRUCTIONAL ASSISTANT procedure are i n the results section. documented in this encounter Results (ABNORMAL) Hemoglobin A1c (08/08/2020 11:43 AM KINDERGARTEN INSTRUCTIONAL ASSISTANT) Analysis Performed At Patho logist Time Signature Hemoglobin A1C 10.2 (H) <=6.9 % LABDE SCAN (External) Specimen (Source) Anatomical Collection Method Collection Time Re ceived Time Location / / Volume Laterality Blood specimen 08/08/2020 11:43 (specimen) AM KINDERGARTEN INSTRUCTIONAL ASSISTANT Narrative BREEZE PFT - 08/11/2020 1:28 PM KINDERGARTEN INSTRUCTIONAL ASSISTANT Verified by Praful Huff on 2019. Patient Reported LAB - BLOOD ORDERABLES Performing Organization Address City/State/ZIP Code Phon e Number BREEZE PFT LABDE SCAN Tacrolimus level (08/08/2020 11:34 AM KINDERGARTEN INSTRUCTIONAL ASSISTANT) athologist Signature Tacrolimus(FK-5 11.7 See scan LABDE SCAN 06) (External) ng/mL Specimen (Source) Anatomical Collection Method Collection Time Re ceived Time Location / / Volume Laterality Blood specimen 08/08/2020 11:34 (specimen) AM KINDERGARTEN INSTRUCTIONAL ASSISTANT Narrative BREEZE PFT - 08/11/2020 1:28 PM KINDERGARTEN INSTRUCTIONAL ASSISTANT Verified by Praful Huff on 2019. Patient Reported LAB - BLOOD ORDERABLES Performing Organization Address City/State/ZIP Code Phon e Number BREEZE PFT LABDE SCAN (ABNORMAL) Lipid Profile (08/08/2020 11:34 AM KINDERGARTEN INSTRUCTIONAL ASSISTANT) [facility] gist Method Time Signature Cholesterol 79 (L) 90 - 200 LABDE SCAN (External) MG/DL Triglycerides 86 40 - 197 LABDE SCAN (External) MG/DL LDL-Cholesterol 29 <100 mg/dL LABDE SCAN (External) HDL Cholesterol 33 (L) >=40 mg/dL LABDE SCAN (External) Specimen (Source) Anatomical Collection Method Collection Time Re ceived Time Location / / Volume Laterality Blood specimen 08/08/2020 11:34 (specimen) AM KINDERGARTEN INSTRUCTIONAL ASSISTANT Narrative BREEZE PFT - 08/11/2020 1:28 PM KINDERGARTEN INSTRUCTIONAL ASSISTANT Verified by Praful Huff on 2019. Patient Reported LAB - BLOOD ORDERABLES Performing Organization Address City/State/ZIP Code Phon e Number BREEZE PFT LABDE SCAN ALT (08/08/2020 11:34 AM KINDERGARTEN INSTRUCTIONAL ASSISTANT) P athologist Signature ALT (External) 8 4 - 50 U/L LABDE SCAN Specimen (Source) Anatomical Collection Method Collection Time Re ceived Time Location / / Volume Laterality Blood specimen 08/08/2020 11:34 (specimen) AM KINDERGARTEN INSTRUCTIONAL ASSISTANT Narrative BREEZE PFT - 08/11/2020 1:28 PM KINDERGARTEN INSTRUCTIONAL ASSISTANT Verified by Praful Huff on 2019. Patient Reported LAB - BLOOD ORDERABLES Performing Organization Address City/State/ZIP Code Phon e Number BREEZE PFT LABDE SCAN (ABNORMAL) Basic metabolic panel (08/08/2020 11:34 AM KINDERGARTEN INSTRUCTIONAL ASSISTANT) P athologist Signature Glucose 119 (H) 60 [...] Laterality Blood specimen 08/08/2020 11:34 (specimen) AM KINDERGARTEN INSTRUCTIONAL ASSISTANT Narrative BREEZE PFT - 08/11/2020 1:28 PM KINDERGARTEN INSTRUCTIONAL ASSISTANT Verified by Praful Huff on 2019. Patient Reported LAB - BLOOD ORDERABLES Performing Organization Address City/State/ZIP Code Phon e Number BREEZE PFT LABDE SCAN documented in this encounter Visit Diagnoses Not on filedocumented in this encounter Care Teams Tailor Apprentice Relationship Specialty Start Date End Date Momo Forbes PCP - General Family Practice 01/02/[address] [address] Joseph Quintana, Assigned Nephrology 03/29/21 MD Provider [address] [place] [address] documented as of this encounter
--- OUTSIDE RECORDS SUMMARY | 2022-05-19 11:32 | XMS_ITS | Encounter Summary ---
:1950 Author Organization [place] Address [facility] [place] [address] Care Team Providers Name Role Phone Momo Forbes Primary Care Provider Joseph Quintana MD Unavailable Encounter Details Date Type Department Care Team Description 05/26/2020 External Order [facility] Outside, Provider Results Transplant Clinic [address] [place] [phone] Social History Tobacco Use Types Packs/Day [...] filedocumented in this encounter Care Teams Solar Panel Installer Relationship Specialty Start Date End Date Momo Forbes PCP - General Family Practice 01/02/14 [facility] [address] [place] [address] Joseph Quintana, Assigned Nephrology 03/29/21 MD Provider 7 [facility] 353 [facility] [address] [place] [address] documented as of this encounter
--- OUTSIDE RECORDS SUMMARY | 2022-05-19 11:32 | XMS_ITS | Encounter Summary ---
:1950 Author Organization [place] Address [facility] [place] [address] Care Team Providers Name Role Phone Momo Forbes A Primary Care Provider Reason for Visit Reason Onset Date Comments Transplant Immunosuppression Management 09/08/2020 Encounter Details Date Type Department Care Team Description 09/08/2020 Telephone [facility] Tram, Transplant Transplant Clinic Barbie Nam, Immunosuppression [address] [place] [address] [place] [phone] Social History Tobacco Use Types [...] Barbie Ugalde RN - 09/09/2020 3:06 PM MANAGER FAST FOOD Second call placed to patient and voicemail message left. GER FAST FOOD Telephone Encounter - Barbie Ugalde RN - 09/08/2020 10:31 AM MANAGER FAST FOOD Images from the original note were not included. Message Received: 3 days ago Message Contents Beny Staton, [facility] Barbie Ugalde, BOGDAN ?? Latrell has not filled immunos since 07/21. ??His tacro dose changed and he has not filled the 0.5mg in over a year. ??He has not returned our calls. ?? Beny Staton [facility] Specialty Pharmacist [phone] OUTCOME: Tacrolimus dose was decreased from 2mg [...] he is currently taking and need labs. GER FAST FOOD documented in this encounter Plan of Treatment Not on filedocumented as of this encounter Visit Diagnoses Not on filedocumented in this encounter Care Teams Practice Performance Manager Relationship Specialty Start Date End Date Momo Forbes PCP - General Family Practice 01/02/14 [place] [id number] documented as of this encounter
--- OUTSIDE RECORDS SUMMARY | 2022-05-19 11:32 | XMS_ITS | Encounter Summary ---
:1950 Author Organization [place] Address [facility] [place] [address] Care Team Providers Name Role Phone Momo Forbes Primary Care Provider Joseph Quintana MD Unavailable Encounter Details Date Type Department Care Team Description 02/02/2021 External Order [facility] Outside, Provider Results Transplant Clinic [address] [place] [phone] Social History Tobacco Use Types Packs/Day [...] by Cassie Florian on 02/04/2021. Performed by: [facility] [address] [place], [place] ??[address] Patient Reported LABORATORY Performing Organization Address City/State/ZIP Code Phon e Number BRETYLER PFT COVID-19 EXTERNAL COVID-[address] RESULTS Result Scanned into Patient Record by [email or web address] Refer to Result Comment/Narrative for exact performing laboratory documented in this encounter Visit Diagnoses Not on filedocumented in this encounter Care Teams Freelance Web Designer Relationship Specialty Start Date End Date Momo Forbes PCP - General Family Practice 01/02/14 [facility] [address] [place] [address] Joseph Quintana, Assigned Nephrology 03/29/21 MD Provider 717 [facility] [address] [employer] [address] [place] [address] documented as of this encounter
--- OUTSIDE RECORDS SUMMARY | 2022-05-19 11:32 | XMS_ITS | Encounter Summary ---
:1950 Author Organization [place] Address Formerly [facility] [place] [address] Care Team Providers Name Role Phone Momo Forbes A Primary Care Provider Reason for Visit Reason Onset Date Comments Transplant 02/03/2021 spoke w pt and donna vallejoed annual neph appt on 03/05/21 Encounter Details Date Type Department Care Team Description 02/03/2021 Telephone [facility] Barbie Ugaldelanlynda (spoke w pt Transplant Clinic BOGDAN Nam and confirmed annual 909 [facility] neph appt on 03/05/21) [place] [address] Social History Tobacco Use Types [...] on filedocumented in this encounter Care Teams Instructional Developer Relationship Specialty Start Date End Date Momo Forbes PCP - General Family Practice 01/02/14 [facility] [address] [place] [address] documented as of this encounter
--- OUTSIDE RECORDS SUMMARY | 2022-05-19 11:32 | XMS_ITS | Encounter Summary ---
:1950 Author Organization [place] Address [address] [place] [address] Care Team Providers Name Role Phone Momo Forbes Primary Care Provider Joseph Quintana MD Unavailable Reason for Visit Reason Onset Date Comments Transplant Lab 05/04/2021 Encounter Details Date Type Department Care Team Description 05/04/2021 Telephone [facility] Transplant Krys Garcia, Transplant Lab Clinic RN [address] [place] [phone] Social History Tobacco Use Types [...] maroon colored stools. he had colonoscopy with [facility] about a year ago. Appears in CareEverywhere colonoscopy was 03/20/2015. Latrell denies infectious symptoms currently but reports he had R foot surgery at [facility] this last winter for diabetic foot ulcer. Infection in bottom of foot; laid up since Sep. Pretty well healed except a little speck. Follows up with Dr. Chatterjee. Will check iron panel on next labs. Orders sent. Barbie Ugalde RN, BSN Solid Organ Transplant, Post Kidney and Pancreas Transplant Advertising Sales Assistant [phone] Telephone Encounter - Krys Garcia RN - 05/04/2021 8:09 AM CDT ISSUE: Falling hemoglobin. documented in this encounter Plan of Treatment Not on filedocumented as of this encounter Visit Diagnoses Not on filedocumented in this encounter Care Teams Dentist Relationship Specialty Start Date End Date Momo Forbes PCP - General Family Practice 01/02/14 [facility] [address] [place] [address] Joseph Quintana, Assigned Nephrology 03/29/21 MD Provider 717 [facility] 353 [facility] [address] [place] [address] documented as of this encounter
--- OUTSIDE RECORDS SUMMARY | 2022-05-19 11:32 | XMS_ITS | Encounter Summary ---
:1950 Author Organization [place] Address Formerly [facility]0 [facility] [place] [address] Care Team Providers Name Role Phone Momo Forbes Primary Care Provider Joseph Quintana MD Unavailable Encounter Details Date Type Department Care Team Description 04/30/2021 External Order [facility] Outside, Provide r Results Molecular Diagnostic s [address] [place] [address] Social History Tobacco Use Types Packs/Day Years [...] Platelets & Differential (04/30/2021 11:20 AM CDT) [facility] gist Method Time Signature WBC Count [...] on filedocumented in this encounter Care Teams Qa Software Test Engineer Relationship Specialty Start Date End Date Momo Forbes PCP - General Family Practice 01/02/14 [facility] [address] [place], [place] [id number] Joseph Quintana, Assigned Nephrology 03/29/21 MD Provider 717 [facility] 353 [facility] [address] [place] [address] documented as of this encounter
--- OUTSIDE RECORDS SUMMARY | 2022-05-19 11:32 | XMS_ITS | Encounter Summary ---
:1950 Author Organization [place] Address [address] [place] [address]. [place] [address] Care Team Providers Name Role Phone Momo Forbes Primary Care Provider Joseph Quintana MD Unavailable Reason for Visit Reason Onset Date Comments Refill Request 08/25/2021 Encounter Details Date Type Department Care Team Description 08/25/2021 Refill [facility] Transplant Debbie Calderon LPN Refill Request Clinic [address] [place] [address] [phone] Social History Tobacco Use Types Packs/Day [...] documented in this encounter Care Teams Elementary School Registrar Relationship Specialty Start Date End Date Momo Forbes PCP - General Family Practice 01/02/14 [facility] [address] [place] [address] Joseph Quintana, Assigned Nephrology 8/8/21 MD Provider 7 [facility] 353 [facility] [address] [place], [place] [address] documented as of this encounter
--- OUTSIDE RECORDS SUMMARY | 2022-05-19 11:32 | XMS_ITS | Encounter Summary ---
:1950 Author Organization [place] Address [address] [place] [address]. [place] [address] Care Team Providers Name Role Phone Momo Forbes Primary Care Provider Joseph Quintana MD Unavailable Reason for Visit Reason Onset Date Comments Refill Request 08/25/2021 Prograf 0.5mg Encounter Details Date Type Department Care Team Description 08/25/2021 Telephone [facility] [place], Refil l Request (Prograf Transplant Clinic 0.5mg) [address] [place] [phone] Social History Tobacco Use Types [...] Miscellaneous Notes Telephone Encounter - Meghan Mccormack [facility] - 08/25/2021 2:15 PM CST Medication/Refill approved per CPA: [facility] COLLABORATIVE AGREEMENT FOR IMMUNOSUPPRESSENT PRESCRIPTION MODIFICATION. Routing encounter to Transplant as an FYI. 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
--- OUTSIDE RECORDS SUMMARY | 2022-05-19 11:32 | XMS_ITS | Encounter Summary ---
:1950 Author Organization [place] Address [address] [place] [address] Care Team Providers Name Role Phone Momo Forbes Primary Care Provider Joseph Quintana MD Unavailable Encounter Details Date Type Department Care Team Description 11/16/2021 External Order [facility] Outside, Provide r Results Molecular Diagnostic s [address] [place] [address] Social History Tobacco Use Types Packs/Day Years [...] LAB - BLOOD ORDERABLES Performing Organization Address [facility] Code Phon e Number [facility] NON-INTERFACED (ONBASE SCANS) (ABNORMAL) Lipid Profile (11/16/2021 7:12 PM CDT) [facility] Method Time Signature Cholesterol 98 90 - [...] [facility]/ZIP Code Phon e Number [facility] NON-INTERFACED (ONBASE SCANS) (ABNORMAL) CBC with Platelets & Differential (11/16/2021 4:35 PM CDT) [facility] Method Time Signature WBC Count 6.8 4.5 [...] [facility]/ZIP Code Phon e Number [facility] NON-INTERFACED (ONBASE SCANS) documented in this encounter Visit Diagnoses Not on filedocumented in this encounter Care Teams Brick Tosser Relationship Specialty Start Date End Date Momo Forbes PCP - General Family Practice 01/02/14 [facility] [address] [place] [address] Joseph Quintana, Assigned Nephrology 03/29/21 MD Provider 717 [facility] 353 [facility] 1932 [place], [place] [address] documented as of this encounter
--- OUTSIDE RECORDS SUMMARY | 2022-05-19 11:32 | XMS_ITS | Encounter Summary ---
:1950 Author Organization [place] Address [facility]0 [place] [address] Care Team Providers Name Role Phone Momo Forbes Primary Care Provider Joseph Quintana MD Unavailable Encounter Details Date Type Department Care Team Description 07/08/2020 External Order [facility] Outside, Provider Results Transplant Clinic [address] [place] [phone] Social History Tobacco Use Types Packs/Day [...] 9:23 AM Results f or this RESULTS FACTORY MAINTENANCE TECHNICIAN procedure are i n the results section. documented in this encounter Results External Lab Results (07/08/2020 9:23 AM FACTORY MAINTENANCE TECHNICIAN) Analysis Performed At Patho logist Time Signature Scan Lab View Image LABDE SCAN Results (External) Comment: HLA Antibody Screen, Class I an d Class II Specimen (Source) Anatomical Collection Method Collection Time Re ceived Time Location / / Volume Laterality 07/08/2020 9:23 AM FACTORY MAINTENANCE TECHNICIAN Narrative [facility] - 07/16/2020 2:42 PM FACTORY MAINTENANCE TECHNICIAN Verified by Ruperto Pepper on 07/15/20 20. Patient Reported LABORATORY Performing Organization Address City/State/ZIP Code Phon e Number [facility] LABDE SCAN documented in this encounter Visit Diagnoses Not on filedocumented in this encounter Care Teams Property Accountant Relationship Specialty Start Date End Date Momo Forbes PCP - General Family Practice 01/02/14 [facility] [address] [place] [address] Joseph Quintana, Assigned Nephrology 03/29/21 MD Provider [address] [place] [address] [address] [place], [place] [address] documented as of this encounter
--- OUTSIDE RECORDS SUMMARY | 2022-05-19 11:32 | XMS_ITS | Encounter Summary ---
:1950 Author Organization [place] Address [address] [place] [address]. [place] [address] Care Team Providers Name Role Phone Momo [...] on filedocumented in this encounter Care Teams Camera Technician Relationship Specialty Start Date End Date Momo Forbes PCP - General Family Practice 01/02/14 [facility] [address] [place] [address] documented as of this encounter
--- OUTSIDE RECORDS SUMMARY | 2022-05-19 11:32 | XMS_ITS | Encounter Summary ---
:1950 Author Organization [place] Address [facility]0 [facility] [place] [address] Care Team Providers Name Role Phone Momo Forbes Primary Care Provider Joseph Quintana MD Unavailable Encounter Details Date Type Department Care Team Description 01/07/2021 External Order [facility] Outside, Provider Results Transplant Clinic [address] [place] [phone] Social History Tobacco Use Types Packs/Day [...] on filedocumented in this encounter Care Teams Territory Sales Manager Medical Relationship Specialty Start Date End Date Momo Forbes PCP - General Family Practice 01/02/14 [facility] [address] [place] [address] Joseph Quintana, Assigned Nephrology 03/29/21 MD Provider [address] [place] [address] [address] [place] [address] documented as of this encounter
--- OUTSIDE RECORDS SUMMARY | 2022-05-19 11:32 | XMS_ITS | Encounter Summary ---
:1950 Author Organization [place] Address [address] [place] [address]. [place] [address] Care Team Providers Name Role Phone Momo Forbes Primary Care Provider Joseph Quintana MD Unavailable Encounter Details Date Type Department Care Team Description 08/25/2021 Orders Only [facility] Jose, Kidney tr ansplanted; Transplant Clinic BOGDAN Marcano -donor kidney transp lant recipient [address] [place] [phone] Social History Tobacco Use Types Packs/Day [...] transplant documented in this encounter Care Teams Roustabout Supervisor Relationship Specialty Start Date End Date Momo Forbes PCP - General Family Practice 01/02/14 [facility] [address] [place] [address] Joseph Quintana, Assigned Nephrology 03/29/21 Provider 7 [facility] 353 [facility] 1932 [place], [place] [address] documented as of this encounter
--- OUTSIDE RECORDS SUMMARY | 2022-05-19 11:32 | XMS_ITS | Encounter Summary ---
:1950 Author Organization [place] Address [facility]0 [facility] [place] [address] Care Team Providers Name Role Phone ForbesMomo prakash A Primary Care Provider Reason for Visit Reason Onset Date Comments Transplant 07/11/2020 Encounter Details Date Type Department Care Team Description 07/11/2020 Telephone [facility] BOGDAN Nam [address] [place] [address] [phone] Social History Tobacco Use Types Packs/Day [...] Barbie Ugalde RN - 07/11/2020 2:11 PM PAVING CONTRACTOR ISSUE: Potassium 5.2 on 07/08/20. PLAN: Assess for high dietary intake of potassium. Encouraged Diego to reduce the amount of bananas and potatoes he admitted to eating high amounts of. OUTCOME: Please have pt repeat BMP in 1 week. Orders sent NG CONTRACTOR Telephone Encounter - Barbie Ugalde RN - 07/11/2020 1:41 PM PAVING CONTRACTOR ISSUE: Tacrolimus IR level 2.2 on 07/08/20 [...] for repeatlabs. Patient voiced understanding of plan. 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
--- OUTSIDE RECORDS SUMMARY | 2022-05-19 11:32 | XMS_ITS | Encounter Summary ---
:1950 Author Organization [place] Address [facility] [place] [address] Care Team Providers Name Role Phone Momo Forbes Primary Care Provider Joseph Quintana MD Unavailable Encounter Details Date Type Department Care Team Description 01/27/2021 External Order [facility] Outside, Provider Results Transplant Clinic [address] [place] [address] Social History Tobacco Use Types [...] Basic metabolic panel (01/27/2021 11:45 AM CDT) [facility] gist Method Time Signature Glucose 156 [...] with platelets differential (01/27/2021 11:45 AM CDT) [facility] gist Method Time Signature WBC Count [...] on filedocumented in this encounter Care Teams Buttonhole Maker Hand Relationship Specialty Start Date End Date Momo Forbes PCP - General Family Practice 01/02/14 [facility] [address] [place] [address] Joseph Quintana, Assigned Nephrology 03/29/[address] [place] [address] [address] [place] [address] documented as of this encounter
--- OUTSIDE RECORDS SUMMARY | 2022-05-19 11:32 | XMS_ITS | Encounter Summary ---
:1950 Author Organization [place] Address 2450 [facility] [place] [address] Care Team Providers Name Role Phone Forbes, Ton Primary Care Provider Reason for Visit Reason Comments RECHECK Follow Up [place] Encounter Details Date Type Department Care Team Description 03/05/2021 Virtual Visit [facility] Joseph Quintana HTN, ki dney transplant related (Primary Dx); Nephrology Clinic MD Herminio Kidney replaced by transplant; [address] Aftercare following organ tr ansplant; [address] [place] [address] SE RANJAN 353 [facility] Immunosu ppression (H); [address] Vitamin D deficiency; [place] [phone] [phone] Social History Tobacco Use Types Packs/Day Years [...] would you like to be contacted at? [phone] How would you like to obtain your [...] and ended up being discharged to a intermediate. He is doing better and now back [...] unspecified documented in this encounter Care Teams Mechanism Assembler Relationship Specialty Start Date End Date Momo Forbes PCP - General Family Practice 01/02/14 [facility] [address] [place] [address] documented as of this encounter
--- OUTSIDE RECORDS SUMMARY | 2022-05-19 11:32 | XMS_ITS | Encounter Summary ---
:1950 Author Organization [place] Address [facility] [place] [address] Care Team Providers Name Role Phone Momo Forbes A Primary Care Provider Reason for Visit Reason Onset Date Comments Transplant Immunosuppression Management 07/03/2020 Late to refill Encounter Details Date Type Department Care Team Description 07/03/2020 Telephone [facility] Tram, Transplant Transplant Clinic Barbie Nam, Immunosuppression [address] [place] [address] RN Management (Late to [place], [place] refill) [phone] Social History Tobacco Use [...] Barbie Ugalde, BOGDAN - 07/03/2020 10:20 AM MBA INTERNSHIP Images from the original note were not [...] copy to patient so he is aware. 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
--- OUTSIDE RECORDS SUMMARY | 2022-05-19 11:32 | XMS_ITS | Encounter Summary ---
:1950 Author Organization [place] Address [facility] [place] [address] Care Team Providers Name Role Phone Momo Forbes A Primary Care Provider Reason for Visit Reason Onset Date Comments Transplant Lab 01/29/2020 overdue labs Encounter Details Date Type Department Care Team Description 01/29/2020 Telephone [facility] Barbie Ugalde Tra nsplant Lab Transplant Clinic BOGDAN Nam (overdue labs) [address] [place] [phone] Social History Tobacco Use Types Packs/Day [...] a kit for blood work sent to [facility] as requested. Explained kits are no longer being used for drug levels but new orders could be sent to lab if needed. [facility] [phone] (Phone) [facility] has annual order on file sent September 2019 and can fax to their new [facility] location that opened 2 weeks ago. Patient seen provider in [facility] who meryl Hemoglobin A1C and BMP [...] on filedocumented in this encounter Care Teams Transition Coach Relationship Specialty Start Date End Date Momo Forbes PCP - General Family Practice 01/02/14 [facility] [address] [place] [address] documented as of this encounter
--- OUTSIDE RECORDS SUMMARY | 2022-05-19 11:32 | XMS_ITS | Encounter Summary ---
:1950 Author Organization [place] Address [address] [place] [address]. [place] [address] Care Team Providers Name Role Phone Momo Forbes Primary Care Provider Reason for Visit Reason Onset Date Comments Refill Request 02/04/2020 prograf, mycophenola te Encounter Details Date Type Department Care Team Description 02/04/2020 Refill [facility], Joseph Refill R equest Transplant Clinic MD Herminio (prograf, [address] [facility] [address] [facility] mycophenolate) [facility] 353 [facility] 5323 [phone] [place] [address] (Wo rk) Social History Tobacco [...] documented in this encounter Care Teams Nutrition Internship Relationship Specialty Start Date End Date Momo Forbes PCP - General Family Practice 01/02/14 [facility] [address] [place] [address] documented as of this encounter
--- OUTSIDE RECORDS SUMMARY | 2022-05-19 11:32 | XMS_ITS | Encounter Summary ---
:1950 Author Organization [place] Address [facility]0 [facility] [place] [address] Care Team Providers Name Role Phone Momo Forbes A Primary Care Provider Reason for Visit Reason Onset Date Comments Transplant Lab 05/28/2020 Encounter Details Date Type Department Care Team Description 05/28/2020 Telephone [facility] Barbie Ugalde Tra nsplant Lab Transplant Clinic BOGDAN Nam [address] [place] [phone] Social History Tobacco Use Types Packs/Day [...] mg/dL on 05/26/20 at 1025 collected at [facility] [phone] (Phone) CBC appears as expected Missing BMP [...] on filedocumented in this encounter Care Teams Street And Building Decorator Relationship Specialty Start Date End Date Momo Forbes PCP - General Family Practice 01/02/14 [facility] [address] [place] [address] documented as of this encounter
--- OUTSIDE RECORDS SUMMARY | 2022-05-19 11:32 | XMS_ITS | Encounter Summary ---
:1950 Author Organization [place] Address [facility] [place] [address] Care Team Providers Name Role Phone Momo Forbes Primary Care Provider Joseph Quintana MD Unavailable Reason for Visit Reason Onset Date Comments Medication Refill Refill Request 08/20/2021 Encounter Details Date Type Department Care Team Description 08/20/2021 Refill [facility] Joseph Quintana on Refill; Nephrology Clinic MD Herminio Refill Request [address]09 [facility] 353 [facility] 1932 [place], [place] [address] [phone] Social History Tobacco Use Types Packs/Day Years [...] transplant documented in this encounter Care Teams Content Producer Relationship Specialty Start Date End Date Momo Forbse PCP - General Family Practice 01/02/14 [facility] [address] [place] [address] Joseph Quintana, Assigned Nephrology 03/29/21 MD Provider [address] [place] [address] [address] [place] [address] documented as of this encounter
--- OUTSIDE RECORDS SUMMARY | 2022-05-19 11:32 | XMS_ITS | Encounter Summary ---
:1950 Author Organization [place] Address [facility] [address] Care Team Providers Name Role Phone Momo Forbes Primary Care Provider Reason for Visit Reason Onset Date Comments Refill Request 05/07/2020 Mycophenplate and Pr ograf Encounter Details Date Type Department Care Team Description 05/07/2020 Refill [facility] Mariano, Joseph Refill R equest Nephrology Clinic MD Herminio (Mycophenplate and [address] Prograf) [address] [place] [phone] Social History Tobacco Use Types Packs/Day Years [...] transplant documented in this encounter Care Teams Yarding And Folding Machine Operator Relationship Specialty Start Date End Date Momo Forbes PCP - General Family Practice 01/02/14 [facility] [address] [place] [address] documented as of this encounter
--- OUTSIDE RECORDS SUMMARY | 2022-05-19 11:32 | XMS_ITS | Encounter Summary ---
:1950 Author Organization [place] Address [address] [place] [address]. [place] [address] Care Team Providers Name Role Phone Moom Forbes A Primary Care Provider Reason for Visit Reason Onset Date Comments Transplant Immunosuppression Management 08/11/2020 Encounter Details Date Type Department Care Team Description 08/11/2020 [facility] Barbie Ugalde [facility] nsplant Transplant Clinic BOGDAN Nam Immunosuppression [address] [place] [address] [place] [address] Social History Tobacco Use [...] Barbie Ugalde RN - 08/11/2020 4:16 PM CYBER SECURITY INSTRUCTOR ISSUE: Tacrolimus IR level 11.7 on 08/08/20, [...] Organ Transplant, Post Kidney and Pancreas Transplant Warehouse Receiving Supervisor [phone] OUTCOME: Spoke with patient, they confirm accurate trough level and current dose 2 mg BID. Patient confirmed dose change to 1.5 mg BID and to repeat labs in 1 weeks. Orders sent to preferred pharmacy for dose change and lab for repeat labs. Patient voiced understanding of plan. R SECURITY INSTRUCTOR documented in this encounter Plan of Treatment Not on filedocumented as of this encounter Visit Diagnoses Diagnosis Kidney transplanted - Primary Kidney replaced by transplant -donor kidney transplant recipie nt Kidney replaced by transplant documented in this encounter Care Teams Agronomy Supervisor Relationship Specialty Start Date End Date Momo Forbes PCP - General Family Practice 01/02/[address] [address] documented as of this encounter
--- OUTSIDE RECORDS SUMMARY | 2022-05-19 11:32 | XMS_ITS | Encounter Summary ---
:1950 Author Organization [place] Address [facility] [place] [address] Care Team Providers Name Role Phone Momo Forbes A Primary Care Provider Reason for Visit Reason Comments Clinic Care Coordination - Follow-up Encounter Details Date Type Department Care Team Description 10/25/2019 Care Coordination [facility] Sejal Rodriguez Care Nephrology Clinic BOGDAN Llanos Coordination - [place] [phone] Follow-up 9 [facility] (Work) [place] [address] Social History Tobacco Use Types [...] back (follow up BP). Romi Rodriguez RN OFFICE ATTENDANT Romi Rodriguez RN - 10/25/2019 10:15 AM [...] further questions or concerns. Romi Rodriguez, BOGDAN OFFICE ATTENDANT documented in this encounter Plan of Treatment Not on filedocumented as of this encounter Visit Diagnoses Not on filedocumented in this encounter Care Teams Sheet Metal Welder Relationship Specialty Start Date End Date Momo Forbes PCP - General Family Practice 01/02/14 [facility] [address] [place] [address] documented as of this encounter
--- OUTSIDE RECORDS SUMMARY | 2022-05-19 11:32 | XMS_ITS | Encounter Summary ---
:1950 Author Organization [place] Address [facility] [place] [address] Care Team Providers Name Role Phone Momo Forbes A Primary Care Provider Encounter Details Date Type Department Care Team Description 01/30/2021 Telephone [facility] Transplant Viv Torres, BOGDAN [place] [phone] Social History Tobacco Use Types Packs/Day [...] today but not the 0.5mg. Beny Staton [facility] Specialty Pharmacist [phone] PASSENGER TIRE BUILDER task: Can you please call Diego to find out what dose of tacrolimus he is taking and notify coordinator if different than what is prescribed. Recommend repeat tacrolimus level for previously elevated level 7.3, goal 4-6. Thank you, Barbie Ugalde RN, BSN Solid Organ Transplant, Post Kidney and Pancreas Transplant System Admin [phone] Telephone Encounter - Viv Torres RN - [...] documented in this encounter Care Teams Manager Project Relationship Specialty Start Date End Date Momo Forbes PCP - General Family Practice 01/02/14 [facility] [address] [place] [id number] documented as of this encounter
--- OUTSIDE RECORDS SUMMARY | 2022-05-19 11:33 | XMS_ITS | Encounter Summary ---
:1950 Author Organization [place] Address [address] [place] [address] Care Team Providers Name Role Phone Forbes, Ton Primary Care Provider Reason for Visit Reason Comments RECHECK Post kid tx f/u Encounter Details Date Type Department Care Team Description 10/09/2019 [facility] [address] [facility] [address] [place] [address] Kidney transplanted (Primary Dx); Nephrology Clinic , Kidney/Pancreas Recipient Need for influenza vaccination; [place] HTN, kidney transplant relat ed; [address] [facility] Immunosupp ression (H); SE Skin cancer screening; [place], [place] [address] Social History [...] Comments Blood Pressure 169/76 10/09/2019 2:35 PM ROTARY DRILL OPERATOR HELPER Pulse 67 10/09/2019 2:35 PM ROTARY DRILL OPERATOR HELPER Temperature - - Respiratory Rate - - Oxygen Saturation 95% 10/09/2019 2:35 PM ROTARY DRILL OPERATOR HELPER Inhaled Oxygen Concentration - - Weight 132.5 kg (292 lb 1.6 oz) 10/09/2019 2:35 PM ROTARY DRILL OPERATOR HELPER Height - - Body Mass Index 39.62 10/10/2017 2:25 PM ROTARY DRILL OPERATOR HELPER documented in this encounter Progress Notes Shiva [...] being entered into the official medical record. RY DRILL OPERATOR HELPER documented in this encounter Nursing Notes Josseline Recinos RN - 10/09/2019 2:45 PM CST Diego Sosa Sriicyndie was seen today in clinic by this mortgage or loan underwriter. Medications, lab orders, lab frequency,and necessary follow up discussed with patient. Patient was provided with a copy of the current lab letter. Patient voiced understanding and agreement of education and plan. Josseline Recinos RN RY DRILL OPERATOR HELPER Jeanette Finley CMA - 10/09/2019 2:45 PM CST Chief Complaint Patient presents with ??? RECHECK Post kid tx f/u Blood pressure (!) 169/76, pulse 67, weight 132.5 kg (292 lb 1.6 oz), SpO2 95 %. Jeanette Finley CMA RY DRILL OPERATOR HELPER documented in this encounter Plan of [...] deficiency documented in this encounter Care Teams Supervisor Fabrication And Assembly Relationship Specialty Start Date End Date Momo Forbes PCP - General Family Practice 01/02/14 [facility] [address] [place] [address] documented as of this encounter
--- OUTSIDE RECORDS SUMMARY | 2022-05-19 11:33 | XMS_ITS | Encounter Summary ---
:1950 Author Organization [place] Address [address] [place] [address]. [place] [address] Care Team Providers Name Role Phone Momo [...] on filedocumented in this encounter Care Teams Loan Review Officer Relationship Specialty Start Date End Date Momo Forbes PCP - General Family Practice 01/02/14 [facility] [address] [place] [address] documented as of this encounter
--- OUTSIDE RECORDS SUMMARY | 2022-05-19 11:33 | XMS_ITS | Encounter Summary ---
:1950 Author Organization [place] Address [address] [place] [address]. [place] [address] Care Team Providers Name Role Phone Momo Forbes Primary Care Provider Encounter Details Date Type Department Care Team Description 09/25/2019 Medical Correspondence [facility] Scan, PATIENT BLOOD Health Info Mgmt Non-Provider GLUCOSE SIVAKUMAR ALLAN Srvcs [address] [place] [address] Social History Tobacco Use Types Packs/Day [...] on filedocumented in this encounter Care Teams Drug Counselor Relationship Specialty Start Date End Date Momo Forbes PCP - General Family Practice 01/02/14 [facility] [address] [place] [address] documented as of this encounter
--- OUTSIDE RECORDS SUMMARY | 2022-05-19 11:33 | XMS_ITS | Encounter Summary ---
:1950 Author Organization [place] Address [address] [place] [address]. [place] [address] Care Team Providers Name Role Phone Momo [...] on filedocumented in this encounter Care Teams Journal Clerk Relationship Specialty Start Date End Date Momo Forbes PCP - General Family Practice 01/02/14 [facility] [address] [place] [address] documented as of this encounter
--- OUTSIDE RECORDS SUMMARY | 2022-05-19 11:33 | XMS_ITS | Encounter Summary ---
:1950 Author Organization [place] Address [address] [place] [address]. [place] [address] Care Team Providers Name Role Phone Momo Forbes Primary Care Provider Encounter Details Date Type Department Care Team Description 09/26/2019 Medical Correspondence [facility] Scan, BLOOD GLUCOSE LOG Health Info Mgmt Non-Provider Srvcs [address] [place] [phone] Social History Tobacco Use Types Packs/Day [...] on filedocumented in this encounter Care Teams Teachers Assistant Relationship Specialty Start Date End Date Momo Forbes PCP - General Family Practice 01/02/14 [facility] [address] [place] [address] documented as of this encounter
--- OUTSIDE RECORDS SUMMARY | 2022-05-19 11:33 | XMS_ITS | Encounter Summary ---
:1950 Author Organization [place] Address [facility] [place] [address] Care Team Providers Name Role Phone Momo Forbes A Primary Care Provider Reason for Visit Reason Onset Date Comments Kidney Transplant 07/12/2019 Encounter Details Date Type Department Care Team Description 07/12/[address] [facility] Estefania Nguyen Transplant Transplant Clinic Amanda Fletcher RN [address] [place] [address] Social History Tobacco Use Types [...] left with instruction listed below. Order placed RUCTOR HAIRSPRING Telephone Encounter - Amanda Nguyen RN - 07/12/2019 12:23 PM INSTRUCTOR HAIRSPRING Clinic appt 07/17 at 4:45 Plan: Called patient to remind him of appt date/time. Asked that he complete labs prior to appt. SUPERVISOR SHIP MAINTENANCE SERVICES task: Please send one time lab order to complete all tx labs within the next week. RUCTOR HAIRSPRING documented in this encounter Plan of Treatment Not on filedocumented as of this encounter Visit Diagnoses Not on filedocumented in this encounter Care Teams Cell Room Supervisor Relationship Specialty Start Date End Date Momo Forbes PCP - General Family Practice 01/02/14 [facility] [address] [place] [address] documented as of this encounter
--- OUTSIDE RECORDS SUMMARY | 2022-05-19 11:33 | XMS_ITS | Encounter Summary ---
:1950 Author Organization [place] Address [facility] [place] [address] Care Team Providers Name Role Phone Momo Forbes Primary Care Provider Encounter Details Date Type Department Care Team Description 10/09/2019 Orders Only [facility] Transplant Mati Recinos RN Clinic [address] [place], [place] [phone] Social History Tobacco Use Types Packs/Day [...] Orders updated. Faxed to new lab: [facility] T [phone] F [phone] ER GYPSUM documented in this encounter Plan of Treatment Not on filedocumented as of this encounter Visit Diagnoses Not on filedocumented in this encounter Care Teams Saddle Cutter Relationship Specialty Start Date End Date Forbes, Ton PCP - General Family Practice 01/02/14 [facility] [address] [place] [address] documented as of this encounter
--- OUTSIDE RECORDS SUMMARY | 2022-05-19 11:34 | XMS_ITS | Encounter Summary ---
:1950 Author Organization [place] Address [facility] [place] [address] Care Team Providers Name Role Phone Momo Forbes Primary Care Provider Reason for Visit Reason Onset Date Comments Refill Request 12/22/2018 prograf, mycophenola te (PT IS OUT OF MEDS) Encounter Details Date Type Department Care Team Description 12/22/2018 Refill [facility] Joseph Quintana R alenest (prograf, Transplant Clinic MD Herminio mycophenolate (PT IS OUT [address] [facility] SE [address] [facility] SE OF MEDS)) [facility] [address] [facility] 670 [phone] [place], [place] [phone] [facility] [phone] (Wo rk) Social History Tobacco Use Types [...] transplant documented in this encounter Care Teams Lot Worker Relationship Specialty Start Date End Date Momo Forbes PCP - General Family Practice 01/02/14 [facility] [address] [place] [address] documented as of this encounter
--- OUTSIDE RECORDS SUMMARY | 2022-05-19 11:34 | XMS_ITS | Encounter Summary ---
:1950 Author Organization [place] Address [facility] [place] [address] Care Team Providers Name Role Phone ForbesMomo santiago A Primary Care Provider Encounter Details Date Type Department Care Team Description 08/18/2018 Documentation Only [facility] Josseline Recinos, Transplant Clinic RN [address] [place] [address] Social History Tobacco Use Types [...] letter updated: 08/17/18 Lab orders faxed to: [facility] [phone] (Phone) Lab orders up to date in [facility]. DRIER OPERATOR documented in this encounter Plan of Treatment Not on filedocumented as of this encounter Visit Diagnoses Not on filedocumented in this encounter Care Teams Staff Technologist Relationship Specialty Start Date End Date Momo Forbes PCP - General Family Practice 01/02/14 [facility] [address] [place] [address] documented as of this encounter
--- OUTSIDE RECORDS SUMMARY | 2022-05-19 11:34 | XMS_ITS | Encounter Summary ---
:1950 Author Organization [place] Address [address] [facility] [place] [address] Care Team Providers Name Role Phone ForbesMomo prakash A Primary Care Provider Reason for Visit Reason Onset Date Comments Appointment 10/05/2017 Encounter Details Date Type Department Care Team Description 10/05/2017 Telephone [facility] Shiva Presley MD Appointment Nephrology Clinic [facility] [place] [address] 5-4800 [phone] Social History Tobacco Use Types Packs/Day Years [...] or concernsahead of appointment. Romi Rodriguez RN OR BIOINFORMATICS SPECIALIST documented in this encounter Plan of Treatment Not on filedocumented as of this encounter Visit Diagnoses Not on filedocumented in this encounter Care Teams Food And Beverage Director Relationship Specialty Start Date End Date Momo Forbes PCP - General Family Practice 01/02/14 [facility] [address] [place] [address] documented as of this encounter
--- OUTSIDE RECORDS SUMMARY | 2022-05-19 11:34 | XMS_ITS | Encounter Summary ---
:1950 Author Organization [place] Address [address] [place] [address]. [place] [address] Care Team Providers Name Role Phone Momo Forbes Primary Care Provider Encounter Details Date Type Department Care Team Description 05/17/2018 Orders Only [facility] Alana Calderon Afterc are following Transplant labor commissioner organ transplant [address] [place] [address] (Primary Dx) [place] [address] Social History Tobacco Use Types [...] rimary documented in this encounter Care Teams Bead Forming Machine Operator Relationship Specialty Start Date End Date Momo Forbes PCP - General Family Practice 01/02/14 [facility] [address] [place] [address] documented as of this encounter
--- OUTSIDE RECORDS SUMMARY | 2022-05-19 11:34 | XMS_ITS | Encounter Summary ---
:1950 Author Organization [place] Address [facility]0 [facility] [place] [address] Care Team Providers Name Role Phone Momo Forbes Primary Care Provider Joseph Quintana MD Unavailable Encounter Details Date Type Department Care Team Description 05/15/2018 External Order Results [facility] Nurse, [facility] Transplant Clinic [address] [place] [address] Social History Tobacco Use Types [...] 54 (L) >60 LABDE SCAN (if ml/min/1.7 Nauruan) 3m2 (External) GFR Estimated 44 (L) >60 [...] on filedocumented in this encounter Care Teams Creel Operator Relationship Specialty Start Date End Date Momo Forbes PCP - General Family Practice 01/02/14 [facility] [address] [place] [address] Joseph Quintana, Assigned Nephrology 03/29/21 Provider 7 [facility] 353 [facility] [address] [place], [place] [id number] documented as of this encounter
--- OUTSIDE RECORDS SUMMARY | 2022-05-19 11:34 | XMS_ITS | Encounter Summary ---
:1950 Author Organization [place] Address [address] [place] [address] Care Team Providers Name Role Phone ForbesMomo santiago A Primary Care Provider Reason for Visit Reason Onset Date Comments Transplant 09/12/2017 Encounter Details Date Type Department Care Team Description 09/12/2017 Telephone [facility] Transplant Nazia Jacobson, Transplant Clinic RN [address] [place] [phone] Social History Tobacco Use Types Packs/Day [...] updated standing lab order and faxed to [facility] lab. GER MEMBERSHIP Telephone Encounter - Nazia Jacobson RN - 09/12/2017 8:36 AM MANAGER MEMBERSHIP ISSUE: Hyperglycemia (blood sugar 300-600s w/ last 2 blood draws) Overdue for transplant labs DIGITAL IMAGING SPECIALIST TASK: Call Diego Guthrie and ask him who is managing his diabetes? Does he have an billposting supervisor? He needs to have better blood sugar control, elevated blood sugars can cause damage to his kidney. Remind him that he should be getting transplant labs done monthly. (3 years out from kidney transplant) Send updated lab letter. GER MEMBERSHIP documented in this encounter Plan of Treatment Not on filedocumented as of this encounter Visit Diagnoses Not on filedocumented in this encounter Care Teams Heavy Duty Press Operator Relationship Specialty Start Date End Date Momo Forbes PCP - General Family Practice 01/02/14 [facility] [address] [place] [address] documented as of this encounter
--- OUTSIDE RECORDS SUMMARY | 2022-05-19 11:34 | XMS_ITS | Encounter Summary ---
:1950 Author Organization [place] Address [address] [facility] [place] [address] Care Team Providers Name Role Phone Momo Forbes A Primary Care Provider Reason for Visit Reason Onset Date Comments Refill Request 12/19/2017 Encounter Details Date Type Department Care Team Description 12/19/[address] [facility] Joseph Quintana MD Refill Request Transplant Clinic [address] [place] [address] [phone] [place] [address] (Wo rk) Social History Tobacco [...] Fill Date: 11/14/17 Quantity: 60 Janelle Flowers [facility] [phone] documented in this encounter Plan of Treatment Not on filedocumented as of this encounter Visit Diagnoses Diagnosis Kidney transplanted Kidney replaced by transplant documented in this encounter Care Teams Full Stack Software Engineer Relationship Specialty Start Date End Date Momo Forbes PCP - General Family Practice 01/02/14 [facility] [address] [place] [address] documented as of this encounter
--- OUTSIDE RECORDS SUMMARY | 2022-05-19 11:34 | XMS_ITS | Encounter Summary ---
:1950 Author Organization [place] Address [address] [place] [address] Care Team Providers Name Role Phone Momo Forbes A Primary Care Provider Reason for Visit Reason Onset Date Comments Appointment 08/24/2018 Encounter Details Date Type Department Care Team Description 08/24/2018 Telephone [facility] Nephrology Romi Garcia, RN Appointment [facility] [phone] ([facility]) [address] [place] [address] [phone] Social History Tobacco Use Types Packs/Day [...] patient to call back. Romi Rodriguez RN OFILM OPERATOR Telephone Encounter - Romi Rodriguez RN - 08/24/2018 1:54 PM CST Left voicemail for patient to call back (follow up from last transplant appointment). Romi Rodriguez, RN OFILM OPERATOR documented in this encounter Plan of Treatment Not on filedocumented as of this encounter Visit Diagnoses Not on filedocumented in this encounter Care Teams Speech Therapy Assistant Relationship Specialty Start Date End Date Momo Forbes PCP - General Family Practice 01/02/[address] [address] documented as of this encounter
--- OUTSIDE RECORDS SUMMARY | 2022-05-19 11:34 | XMS_ITS | Encounter Summary ---
:1950 Author Organization [place] Address [address] [place] [address] Care Team Providers Name Role Phone ForbesMomo prakash A Primary Care Provider Reason for Visit Reason Comments RECHECK annual Follow up Kidney TX Encounter Details Date Type Department Care Team Description 10/17/2018 Office Visit [facility] Shiva Presley MD [facility] [address] [facility] [address] [place] [address] Type 2 diabetes mellitus with other spec ified complication, with long-term current use of insulin (H) (Primary Dx); Nephrology Clinic [facility] Kidney/Pancreas Recipient Kidney replaced by transplant; [place] [facility]care following organ tr ansplant; [address] Immunosupp ression (H); SE HTN, kidney transplant relat ed; [place], [place] Severe obesi ty in adult, BMI [...] Comments Blood Pressure 162/77 10/17/2018 1:54 PM JOB INTERVIEWER Pulse 60 10/17/2018 1:54 PM JOB INTERVIEWER Temperature 36.5 ??C (97.7 ??F) 10/17/2018 1:54 PM JOB INTERVIEWER Respiratory Rate - - Oxygen Saturation 94% 10/17/2018 1:54 PM JOB INTERVIEWER Inhaled Oxygen Concentration - - Weight 133.7 kg (294 lb 12.8 oz) 10/17/2018 1:54 PM JOB INTERVIEWER Height - - Body Mass Index 39.98 10/10/2017 2:25 PM JOB INTERVIEWER documented in this encounter Progress Notes Joseph [...] then 50%0. Also offered to refer to project management director. # Mineral Bone Disorder: - Secondary renal [...] PREVIOUSLY REPORTED 1999 MPACID 1.39 MPAG 80.2 INTERVIEWER documented in this encounter Nursing Notes Martina [...] kg (294 lb 12.8 oz). Martina Boyle INTERVIEWER documented in this encounter Plan of Treatment [...] >40 documented in this encounter Care Teams Pathology Laboratory Director Relationship Specialty Start Date End Date Momo Forbes PCP - General [facility] Practice 01/02/14 [facility] [address] [place] [address] documented as of this encounter
--- OUTSIDE RECORDS SUMMARY | 2022-05-19 11:34 | XMS_ITS | Encounter Summary ---
:1950 Author Organization [place] Address [address] [place] [address]. [place] [address] Care Team Providers Name Role Phone Momo Forbes Primary Care Provider Reason for Visit Reason Onset Date Comments Transplant Pharmacy Medication Review 01/19/2018 Encounter Details Date Type Department Care Team Description 01/19/2018 Telephone [facility] Beny Staton, Transplant Pharmacy [address] [facility] [place] [address] [facility] [phone] PHARMACY [place], [place] [address] Social History Tobacco Use Types Packs/Day Years [...] on filedocumented in this encounter Care Teams Bread Oven Operator Relationship Specialty Start Date End Date Momo Forbes PCP - General Family Practice 01/02/14 [facility] [address] [place] [address] documented as of this encounter
--- OUTSIDE RECORDS SUMMARY | 2022-05-19 11:34 | XMS_ITS | Encounter Summary ---
:1950 Author Organization [place] Address [facility] [place] [address] Care Team Providers Name Role Phone Momo Forbes Primary Care Provider Reason for Visit Reason Onset Date Comments Transplant Pharmacy Medication Review 01/10/2019 Encounter Details Date Type Department Care Team Description 01/10/2019 Telephone [facility] Meghan Mccormack, [facility] Transplant Pharmacy [address] [facility] [place] [place] [address] PHARMACY [phone] [address], [place] [address] (Wo rk) Social History Tobacco Use Types [...] on filedocumented in this encounter Care Teams Kinesiology Professor Relationship Specialty Start Date End Date Momo Forbes PCP - General Family Practice 01/02/14 [facility] [address] [place] [address] documented as of this encounter
--- OUTSIDE RECORDS SUMMARY | 2022-05-19 11:34 | XMS_ITS | Encounter Summary ---
:1950 Author Organization [place] Address [address] [facility] [place] [address] Care Team Providers Name Role Phone Forbes, Momo He Primary Care Provider Reason for Visit Reason Onset Date Comments Transplant 10/18/2018 post transplant lucía sampson Encounter Details Date Type Department Care Team Description 10/18/[address] [facility] Nazia Jacobson Transplant (post Transplant Clinic BOGDAN Hicksmetal products viewer scheduling) [address] [place] [phone] Social History Tobacco Use Types Packs/Day [...] another detailed message with weight managements number. TICE DIRECTOR Telephone Encounter - Maribel Plunkett - 10/18/2018 9:32 AM CST I attempted to contact pt to give him the number for weight management, as they want to talk directly to the patient when scheduling initial appointment, and reached his VM. I LVM asking him to return my call. TICE DIRECTOR documented in this encounter Plan of Treatment Not on filedocumented as of this encounter Visit Diagnoses Not on filedocumented in this encounter Care Teams Videotape Editor Relationship Specialty Start Date End Date Momo Forbes PCP - General Family Practice 01/02/14 [facility] [address] [place] [address] documented as of this encounter
--- OUTSIDE RECORDS SUMMARY | 2022-05-19 11:34 | XMS_ITS | Encounter Summary ---
:1950 Author Organization [place] Address [address] [place] [address] Care Team Providers Name Role Phone Forbes, Momo He Primary Care Provider Reason for Visit Reason Comments RECHECK Kidney tx follow up Encounter Details Date Type Department Care Team Description 10/10/2017 Office Visit [facility] Shiva Presley Sta tus post kidney transplant (Primary Dx); Nephrology Clinic Immunosuppression (H); [facility] Type 2 diabetes mellitus wit h stage 3 chronic kidney disease, with long-term current use of insulin (H); [address] [place] [address] Benign essential hypertension; [address] Hyperlipidemia, unspecified hyperlipidemia type; [place], [place] RANJAN [address] Skin cancer screening [phone] [place] [address] (Wo rk) Social History Tobacco [...] Comments Blood Pressure 153/74 10/10/2017 2:25 PM FREIGHT COORDINATOR Pulse 55 10/10/2017 2:25 PM FREIGHT COORDINATOR Temperature 36.7 ??C (98.1 ??F) 10/10/2017 2:25 PM FREIGHT COORDINATOR Respiratory Rate - - Oxygen Saturation 98% 10/10/2017 2:25 PM FREIGHT COORDINATOR Inhaled Oxygen Concentration - - Weight 135.4 kg (298 lb 6.4 oz) 10/10/2017 2:25 PM FREIGHT COORDINATOR Height 182.9 cm (6') 10/10/2017 2:25 PM FREIGHT COORDINATOR Body Mass Index 40.47 10/10/2017 2:25 PM FREIGHT COORDINATOR documented in this encounter Progress Notes Shiva [...] is well as a referral to his security strategist for monitoring for any skin cancers. 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 GHT COORDINATOR documented in this encounter Nursing Notes [place] [...] Medication Reconciliation: complete MONROE ZURITA CMA . GHT COORDINATOR documented in this encounter Plan of Treatment [...] skin documented in this encounter Care Teams Buckle Stringer Relationship Specialty Start Date End Date Momo Forbes PCP - General Family Practice 01/02/14 [facility] [address] [place] [address] documented as of this encounter
--- OUTSIDE RECORDS SUMMARY | 2022-05-19 11:34 | XMS_ITS | Encounter Summary ---
:1950 Author Organization [place] Address [address] [place] [address] Care Team Providers Name Role Phone Momo Forbes Primary Care Provider Encounter Details Date Type Department Care Team Description 05/15/2018 Orders Only [facility] Loy Morales MD [facility] [address] [facility] [address] [place] [id number] [place] [address] [phone] Social History Tobacco Use Types Packs/Day Years [...] (ABNORMAL) Tacrolimus level (05/15/2018 2:13 PM CDT) [facility] gist Method Time Signature Tacrolimus Not Provided 05/18/2018 [facility] Last Dose 7:24 AM CDT [facility] Tacrolimus 3.4 (L) 5.0 - 05/18/2018 [facility] Level 15.0 ug/L 7:24 AM CDT [facility] Comment: Tacrolimus Reference Range Kidney Transplant [...] its performa nce characteristics determined by the [facility], ??Special Chemistry Laboratory. It has [...] - BLOOD ORDERABLES Performing Organization Address [facility]/ZIP Code Phon e Number [facility] [address] Cyclosporine (05/15/2018 2:13 PM CDT) Component Value Ref Test Analysis Performed At [facility] Range Method Time Signature Cyclosporine CANCELLED BY 05/17/2018 [facility] Dose BOGDAN KOLB 1:00 PM CDT [facility] ETCHEVERRY ON [facility] 05/17/18 AT CAMPUS 1300 BY [place] Comment: CORRECTED ON 05/17 AT 1300: PRE VIOUSLY REPORTED [id number] Cyclosporine Level CANCELLED BY RN 50 - 400 05/17/2018 1:00 [facility] ug/L PM CDT [facility] ETCHEVERRY ON [facility] 05/17/18 AT 1300 BY [place] Comment: CORRECTED ON 05/17 AT 1300: PRE VIOUSLY REPORTED <25 Specimen Anatomical Collection Method Collection Time Receive d Time (Source) Location / / Volume Laterality 05/15/2018 2:13 PM 8 9:59 CDT AM CDT Orlando Richey MD LAB - BLOOD ORDERABLES Performing Organization Address City/[facility]/ZIP Code Phon e Number [address] documented in this encounter Visit Diagnoses Not on filedocumented in this encounter Care Teams Digitizer Relationship Specialty Start Date End Date Momo Forbes PCP - General Family Practice 01/02/14 [facility] [address] [place] [address] documented as of this encounter
--- OUTSIDE RECORDS SUMMARY | 2022-05-19 11:34 | XMS_ITS | Encounter Summary ---
:1950 Author Organization [place] Address [address] [place] [address] Care Team Providers Name Role Phone Momo Forbes Primary Care Provider Encounter Details Date Type Department Care Team Description 11/03/2017 Orders Only [facility] Loy Morales Kid ney replaced by [facility] MD transplant Laboratory [address] [facility] 500 [facility] 609 [place] [phone] [id number] (Wo rk) Social History Tobacco Use Types [...] Results Tacrolimus level (11/03/2017 11:30 AM CDT) [facility] Method Time Signature Tacrolimus Not Provided 11/05/2017 [facility] Last Dose 2:20 PM CDT [facility] Tacrolimus 10.7 5.0 - 11/06/2017 [facility] 15.0 ug/L 1:00 PM CDT [facility] Comment: Tacrolimus Reference Range [...] its performa nce characteristics determined by the [facility], ??Special Chemistry Laboratory. It has not [...] Organization Address City/State/ZIP Code Phon e Number [id number] [place] [address] documented in this encounter Visit Diagnoses Diagnosis Kidney replaced by transplant documented in this encounter Care Teams Allergist/Pediatric Pulmonologist Relationship Specialty Start Date End Date Momo Forbes PCP - General Family Practice 01/02/14 [facility] [address] [place] [address] documented as of this encounter
--- OUTSIDE RECORDS SUMMARY | 2022-05-19 11:34 | XMS_ITS | Encounter Summary ---
:1950 Author Organization [place] Address [address] [facility] [place] [address] Care Team Providers Name Role Phone Momo Forbes A Primary Care Provider Reason for Visit Reason Onset Date Comments Refill Request 10/10/2017 mycophenolae Encounter Details Date Type Department Care Team Description 10/10/2017 Refill [facility] Mariano, Joseph Refill R equest Transplant Clinic MD Herminio (mycophenolae ) [address] [place] [phone] [place] [address] (Wo rk) Social History Tobacco [...] Fill Date: 09/01/17 Quantity: 180 Janelle Flowers [facility] [phone] ENT COORDINATOR documented in this encounter Plan of Treatment Not on filedocumented as of this encounter Visit Diagnoses Diagnosis 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 [address] [place] [address] documented as of this encounter
--- OUTSIDE RECORDS SUMMARY | 2022-05-19 11:34 | XMS_ITS | Encounter Summary ---
:1950 Author Organization [place] Address [address] [place] [address]. [place] [address] Care Team Providers Name Role Phone Momo [...] on filedocumented in this encounter Care Teams Circulating Process Inspector Relationship Specialty Start Date End Date Momo Forbes PCP - General Family Practice 01/02/14 [facility] [address] [place] [address] documented as of this encounter
--- OUTSIDE RECORDS SUMMARY | 2022-05-19 11:34 | XMS_ITS | Encounter Summary ---
:1950 Author Organization [place] Address [address] [place] [address] Care Team Providers Name Role Phone Forbes, Ton Primary Care Provider Reason for Visit Reason Onset Date Comments Transplant 11/07/2017 Encounter Details Date Type Department Care Team Description 11/07/2017 Telephone [facility] Transplant Nazia Jacobson, Transplant Clinic RN [address] [phone] Social History Tobacco Use Types Packs/Day [...] range, repeat tac level in 1 week. GROUP SOCIAL WORKER TASK: Call patient with instructions per plan. Enter lab orders if needed. documented in this encounter Plan of Treatment Not on filedocumented as of this encounter Visit Diagnoses Not on filedocumented in this encounter Care Teams Jewelry Model Maker Relationship Specialty Start Date End Date Momo Forbes PCP - General Family Practice 01/02/[address] [address] documented as of this encounter
--- OUTSIDE RECORDS SUMMARY | 2022-05-19 11:34 | XMS_ITS | Encounter Summary ---
:1950 Author Organization [place] Address [address] [place] [address]. [place] [address] Care Team Providers Name Role Phone Momo Forbes Primary Care Provider Reason for Visit Reason Onset Date Comments Erroneous encounter-disregard 05/17/2018 Encounter Details Date Type Department Care Team Description 05/17/2018 Telephone [facility] Etcheverry, Erroneous Transplant Clinic BOGDAN Lopes encounter-disregard [address] [place] [phone] Social History Tobacco Use Types Packs/Day [...] on filedocumented in this encounter Care Teams Grief Counselor Relationship Specialty Start Date End Date Momo Forbes PCP - General Family Practice 01/02/14 [facility] [address] [place] [address] documented as of this encounter
--- OUTSIDE RECORDS SUMMARY | 2022-05-19 11:34 | XMS_ITS | Encounter Summary ---
:1950 Author Organization [place] Address [facility] [place] [address] Care Team Providers Name Role Phone Forbes, Ton Primary Care Provider Reason for Visit Reason Onset Date Comments Kidney Transplant 05/20/2019 Encounter Details Date Type Department Care Team Description 05/20/[address] [facility] Estefania Nguyen Transplant Transplant Clinic Amanda Fletcher RN [address] [place] [phone] Social History Tobacco Use Types Packs/Day [...] not charted as 12 hour trough. ?? Plan/ASSET ACCOUNTANT task: ?? Please confirm timing of lab draw. If this was not a 12 hour level, please repeat labs in May and ensure 12 hour trough level with lab draw. Enter lab orders if needed Telephone Encounter - Amanda Nguyen RN - 05/20/2019 5:38 PM CDT Issue: Tac 4.6 - however this is not charted as 12 hour trough. Plan/ASSET ACCOUNTANT task: Please confirm timing of lab draw. If this was not a 12 hour level, please repeat labs in May and ensure 12 hour trough level with lab draw. Enter lab orders if needed. documented in this encounter Plan of Treatment Not on filedocumented as of this encounter Visit Diagnoses Not on filedocumented in this encounter Care Teams Call Center Operator Relationship Specialty Start Date End Date Momo Forbes PCP - General Family Practice 01/02/14 [facility] [address] [place] [address] documented as of this encounter
--- OUTSIDE RECORDS SUMMARY | 2022-05-19 11:34 | XMS_ITS | Encounter Summary ---
:1950 Author Organization [place] Address [facility] [place] [address] Care Team Providers Name Role Phone Momo Forbes Primary Care Provider Joseph Quintana MD Unavailable Encounter Details Date Type Department Care Team Description 09/04/2018 External Order Results [facility] Nurse, [facility] Transplant Clinic [address] [place] [phone] Social History Tobacco Use Types [...] 2:50 PM R esults for this DIFFERENTIAL SNOWBOARDING INSTRUCTOR procedure are i n the results section. BASIC METABOLIC PANEL Routine 09/04/2018 2:50 PM Results for this SNOWBOARDING INSTRUCTOR procedure are i n the results section. PROTEIN RANDOM URINE Routine 09/04/2018 2:49 PM R esults for this SNOWBOARDING INSTRUCTOR procedure are i n the results section. documented in this encounter Results (ABNORMAL) CBC with platelets differential (09/04/2018 2:50 PM SNOWBOARDING INSTRUCTOR) [facility] gist Method Time Signature WBC Count 3.8 [...] Laterality Blood specimen 09/04/2018 2:50 PM (specimen) SNOWBOARDING INSTRUCTOR Narrative JESSICA THIBODEAUX - 09/06/2018 9:13 AM SNOWBOARDING INSTRUCTOR Verified by Cassie Florian on 09/06/2018. Patient Reported LAB - BLOOD ORDERABLES Performing Organization Address City/State/ZIP Code Phon e Number [facility] [facility] LABDE SCAN (ABNORMAL) Basic metabolic panel (09/04/2018 2:50 PM SNOWBOARDING INSTRUCTOR) Analysis Performed At Patho logist Time Signature [...] 49 (L) >60 LABDE SCAN (if ml/min/1.7 Iraqi) 3m2 (External) GFR Estimated 41 (L) >60 LABDE SCAN (External) ml/min/1.7 3m2 Specimen (Source) Anatomical Collection Method Collection Time Re ceived Time Location / / Volume Laterality Blood specimen 09/04/2018 2:50 PM (specimen) SNOWBOARDING INSTRUCTOR Narrative JESSICA PFT - 09/06/2018 9:13 AM SNOWBOARDING INSTRUCTOR Verified by Cassie Florian on 09/06/2018. Patient Reported LAB - BLOOD ORDERABLES Performing Organization Address City/State/ZIP Code Phon e Number [facility] [facility] LABDE SCAN (ABNORMAL) Protein random urine with Creat Ratio (09/04/2018 2:49 PM SNOWBOARDING INSTRUCTOR) P athologist Signature Protein Random 72 (H) 1 - 14 LABDE SCAN Urine mg/dL (External) Creatinine 104.0 63.0 - LABDE SCAN Urine mg/dL 166.0 (External) mg/dL Protein Total 0.7 (H) <0.2 LABDE SCAN Ur per Cr (External) Specimen (Source) Anatomical Collection Method Collection Time Re ceived Time Location / / Volume Laterality Urine specimen 09/04/2018 2:49 PM (specimen) SNOWBOARDING INSTRUCTOR Narrative MARLENEE PFT - 09/06/2018 9:13 AM SNOWBOARDING INSTRUCTOR Verified by Cassie Florian on 09/06/2018. Patient Reported LAB - URINE ORDERABLES Performing Organization Address City/State/ZIP Code Phon e Number [facility] LABDE SCAN documented in this encounter Visit Diagnoses Not on filedocumented in this encounter Care Teams Steam Frame Operator Relationship Specialty Start Date End Date Momo Forbes PCP - General Family Practice 01/02/14 [facility] [address] [place] [address] Joseph Quintana, Assigned Nephrology 03/29/21 MD Provider [address] [facility] 353 [facility] [address] [place] [address] documented as of this encounter
--- OUTSIDE RECORDS SUMMARY | 2022-05-19 11:34 | XMS_ITS | Encounter Summary ---
:1950 Author Organization [place] Address [address] [place] [address]. [place] [address] Care Team Providers Name Role Phone Momo [...] on filedocumented in this encounter Care Teams Prosthetic Makeup Designer Relationship Specialty Start Date End Date Momo Forbes PCP - General Family Practice 01/02/14 [facility] [address] [place] [address] documented as of this encounter
--- OUTSIDE RECORDS SUMMARY | 2022-05-19 11:34 | XMS_ITS | Encounter Summary ---
:1950 Author Organization [place] Address [facility] [place] [address] Care Team Providers Name Role Phone Momo Forbes Primary Care Provider Joseph Quintana MD Unavailable Encounter Details Date Type Department Care Team Description 05/16/2019 External Order [facility] Nurse, Txc Afterca re following organ transplant; Results Transplant Clinic Kidney replaced by transplan t; [address] [place] [address] Encounter for long-term curr [place] [phone] Social History Tobacco Use Types [...] 3:43 PM CDT) Analysis Performed At Patho [facility] Time Signature Sodium 136 135 - [...] Estimated >60 >60 LABDE SCAN (if ml/min/1.7 Djiboutian) 3m2 (External) GFR Estimated 56 (L) >60 [...] 3:36 PM CDT) Analysis Performed At Patho [facility] Time Signature Protein Random 41 (H) [...] edication documented in this encounter Care Teams Social Worker Health Services Relationship Specialty Start Date End Date Momo Forbes PCP - General Family Practice 01/02/14 [facility] [address] [place] [address] Joseph Quintana, Assigned Nephrology 03/29/21 Provider 7[address] [facility] 353 [facility] [address] [place] [address] documented as of this encounter
--- OUTSIDE RECORDS SUMMARY | 2022-05-19 11:34 | XMS_ITS | Encounter Summary ---
:1950 Author Organization [place] Address [address] [place] [address] Care Team Providers Name Role Phone Forbes, Momo He Primary Care Provider Reason for Referral Consultation - Closed Specialty Diagnoses / Procedures Referred By Contact Refer red To Contact Diagnoses Obesity Kidney transplanted Sot Other Services [address] [place] [address] Referral ID Status Reason Start Date Expiration Date Visits Requ ested Visits Authorized [id number] Closed 10/17/2018 10/17/2019 1 1 RVISOR WOUND Reason for Visit Reason Comments Transplant Encounter Details Date Type Department Care Team Description 10/17/2018 Orders Only [facility] Marcelacaty Nazia Obesity (P rimary Dx); Transplant Clinic BOGDAN Hicks Kidney transplanted [address] [place] [phone] Social History Tobacco Use Types [...] transplant documented in this encounter Care Teams Occupational Health Physiotherapist Relationship Specialty Start Date End Date Momo Forbes PCP - General Family Practice 01/02/14 [facility] [address] [place] [address] documented as of this encounter
--- OUTSIDE RECORDS SUMMARY | 2022-05-19 11:34 | XMS_ITS | Encounter Summary ---
:1950 Author Organization [place] Address [address] [place] [address]. [place] [address] Care Team Providers Name Role Phone Momo Forbes Primary Care Provider Reason for Visit Reason Onset Date Comments Refill Request 01/17/2019 Encounter Details Date Type Department Care Team Description 01/17/2019 Refill [facility] Joseph Quintana MD Refill Request Transplant Clinic [address] [place] [phone] [place] [address] (Wo rk) Social [...] transplant documented in this encounter Care Teams Tray Line Supervisor Relationship Specialty Start Date End Date Momo Forbes PCP - General Family Practice 01/02/14 [facility] [address] [place] [address] documented as of this encounter
--- OUTSIDE RECORDS SUMMARY | 2022-05-19 11:34 | XMS_ITS | Encounter Summary ---
:1950 Author Organization [place] Address [address] [place] [address]. [place] [address] Care Team Providers Name Role Phone Momo Forbes Primary Care Provider Reason for Visit Reason Onset Date Comments Refill Request 02/28/2019 Encounter Details Date Type Department Care Team Description 02/28/2019 Refill [facility] Shiva Presley MD Refill Request Nephrology Clinic [facility] [place] [phone] Social History Tobacco Use Types Packs/Day Years [...] disease documented in this encounter Care Teams Equipment Processer Storage Relationship Specialty Start Date End Date Momo Forbes PCP - General Family Practice 01/02/14 [facility] [address] [place], [place] [id number] documented as of this encounter
--- OUTSIDE RECORDS SUMMARY | 2022-05-19 11:34 | XMS_ITS | Encounter Summary ---
:1950 Author Organization [place] Address [facility] [place] [address] Care Team Providers Name Role Phone Frobes, Ton Primary Care Provider Reason for Visit Reason Onset Date Comments Transplant Lab 05/16/2019 Encounter Details Date Type Department Care Team Description 05/16/2019 Telephone [facility] Sudhir Fields Trans plant Lab Transplant Clinic Amanda Fletcher RN [address] [phone] Social History Tobacco Use Types Packs/Day [...] CDT Provider Call: Transplant Lab/Orders Route to [facility] Post Transplant Days: 1929 When patient is less than 60 days post-transplant, route high priority Reason for Call: updated lab order faxed Liver patients reporting abnormal lab results: Route to RN and Page Document lab facility information when provider is calling about annual lab orders. Delete facility wildcards when not needed. Facility Name: [facility] Location: [place], [place] Outside Facility Callback needed? If needed documented in this encounter Plan of Treatment Not on filedocumented as of this encounter Visit Diagnoses Diagnosis Kidney replaced by transplant - Primary Aftercare following organ transplant Encounter for long-term current use of m edication documented in this encounter Care Teams Gardener Florist Relationship Specialty Start Date End Date Momo Forbes PCP - General Family Practice 01/02/14 [facility] [address] [place] [address] documented as of this encounter
--- OUTSIDE RECORDS SUMMARY | 2022-05-19 11:34 | XMS_ITS | Encounter Summary ---
:1950 Author Organization [place] Address [address] [place] [address]. [place] [address] Care Team Providers Name Role Phone Momo Forbes Primary Care Provider Reason for Visit Reason Onset Date Comments Refill Request 10/11/2017 Encounter Details Date Type Department Care Team Description 10/11/2017 Refill [facility] Transplant Debbie Calderon LPN Refill Request Clinic [address] [place] [phone] Social History Tobacco Use Types Packs/Day [...] transplant documented in this encounter Care Teams Service Coordinator Elderly Facility Relationship Specialty Start Date End Date Momo Forbes PCP - General Family Practice 01/02/14 [facility] [address] [place] [address] documented as of this encounter
--- OUTSIDE RECORDS SUMMARY | 2022-05-19 11:34 | XMS_ITS | Encounter Summary ---
:1950 Author Organization [place] Address [address] [place] [address] Care Team Providers Name Role Phone ForbesMomo prakash A Primary Care Provider Reason for Visit Reason Onset Date Comments Transplant Lab 09/06/2018 Encounter Details Date Type Department Care Team Description 09/06/2018 Telephone [facility] Transplant Adonay, Transplant Lab Clinic BOGDAN Lopes [address] [place] [phone] Social History Tobacco Use Types Packs/Day [...] Marianne Urias RN - 09/12/2018 11:58 AM REST ROOM MAID Attempted to reach pt again regarding his labs, no answer. Left message for pt to return call. ROOM MAID Telephone Encounter - Marianne Urias RN - 09/07/2018 1:30 PM REST ROOM MAID Attempted to reach pt again regarding labs, no answer. Left message for pt to return call. ROOM MAID Telephone Encounter - Marianne Urias RN - 09/06/2018 12:59 PM REST ROOM MAID ISSUE: Creatinine 1.69, up from pt baseline [...] Left message for pt to return call. ROOM MAID documented in this encounter Plan of Treatment Not on filedocumented as of this encounter Visit Diagnoses Not on filedocumented in this encounter Care Teams Rn Gynecology Relationship Specialty Start Date End Date Momo Forbes PCP - General Family Practice 01/02/14 [facility] [address] [place] [address] documented as of this encounter
--- OUTSIDE RECORDS SUMMARY | 2022-05-19 11:34 | XMS_ITS | Encounter Summary ---
:1950 Author Organization [place] Address [address] [place] [address]. [place] [address] Care Team Providers Name Role Phone Momo [...] on filedocumented in this encounter Care Teams Loom Fixer Helper Relationship Specialty Start Date End Date Momo Forbes PCP - General Family Practice 01/02/14 [facility] [address] [place] [address] documented as of this encounter
--- OUTSIDE RECORDS SUMMARY | 2022-05-19 11:34 | XMS_ITS | Encounter Summary ---
:1950 Author Organization [place] Address [address] [place] [address]. [place] [address] Care Team Providers Name Role Phone Momo Forbes Primary Care Provider Encounter Details Date Type Department Care Team Description [facility] [place] [phone] Social History Tobacco Use Types Packs/Day Years [...] disease documented in this encounter Care Teams Cotton Picking Machine Operator Relationship Specialty Start Date End Date Momo Forbes PCP - General Family Practice 01/02/14 [facility] [address] [place] [address] documented as of this encounter
--- OUTSIDE RECORDS SUMMARY | 2022-05-19 11:34 | XMS_ITS | Encounter Summary ---
:1950 Author Organization [place] Address [address] [facility] [place] [address] Care Team Providers Name Role Phone Momo Forbes Primary Care Provider Encounter Details Date Type Department Care Team Description 05/16/2019 Orders Only [facility] Loy Morales Aft ercare following organ transplant; [facility] Kidney replaced by transplant; Laboratory 420 [facility] Encounter for long-term curr ent use of medication [address] [place] [address] [phone] (Wo rk) Social History Tobacco Use Types [...] (ABNORMAL) Tacrolimus level (05/16/2019 3:43 PM CDT) [facility] gist Method Time Signature Tacrolimus Last 05/1605/18/2019 [facility] Dose 1230AM 11:28 AM CDT [facility] Tacrolimus 4.6 (L) 5.0 - 05/18/2019 [facility] 15.0 ug/L 4:11 PM CDT [facility] Comment: Tacrolimus Reference Range Kidney Transplant Pediatric [...] its performa nce characteristics determined by the [facility], ??Special Chemistry Laboratory. It has [...] Phon e Number [facility] [address] documented in this encounter Visit Diagnoses Diagnosis Aftercare following organ transplant Kidney replaced by transplant Encounter for long-term current use of m edication documented in this encounter Care Teams Wire Welder Relationship Specialty Start Date End Date Momo Forbes PCP - General Family Practice 01/02/14 [facility] [address] [place] [address] documented as of this encounter
--- OUTSIDE RECORDS SUMMARY | 2022-05-19 11:34 | XMS_ITS | Encounter Summary ---
:1950 Author Organization [place] Address [address] [facility] [place] [address] Care Team Providers Name Role Phone Momo Forbes A Primary Care Provider Reason for Visit Reason Onset Date Comments Refill Request 10/25/2018 Encounter Details Date Type Department Care Team Description 10/25/2018 Refill [facility] Joseph Quintana MD Refill Request Transplant Clinic [address] [place] [address] [phone] [place] [address] (Wo rk) Social History Tobacco [...] Marianne Urias RN - 10/26/2018 9:04 AM POSTAL SUPPORT EMPLOYEE ISSUE: Refill request for MMF 03/2019 appt [...] to call if further questions or concerns. AL SUPPORT EMPLOYEE documented in this encounter Plan of Treatment Not on filedocumented as of this encounter Visit Diagnoses Diagnosis Kidney transplanted Kidney replaced by transplant documented in this encounter Care Teams Client Service Administrator Relationship Specialty Start Date End Date Momo Forbes PCP - General Family Practice 01/02/14 [facility] [address] [place] [address] documented as of this encounter
--- OUTSIDE RECORDS SUMMARY | 2022-05-19 11:35 | XMS_ITS | Encounter Summary ---
:1950 Author Organization [place] Address [address] [place] [address]. [place] [address] Care Team Providers Name Role Phone Momo Forbes Primary Care Provider Reason for Visit Reason Onset Date Comments Transplant Pharmacy Medication Review 01/26/2017 Encounter Details Date Type Department Care Team Description 01/26/2017 Telephone [facility] Janes Rodriguez, Transplant Pharmacy 500 [facility] Medication [place] [phone] Social History Tobacco Use Types Packs/Day Years [...] in this encounter Care Teams Director Of Business Services Relationship Specialty Start Date End Date Momo Forbes PCP - General Family Practice 01/02/14 [facility] [address] [place] [address] documented as of this encounter
--- OUTSIDE RECORDS SUMMARY | 2022-05-19 11:35 | XMS_ITS | Encounter Summary ---
:1950 Author Organization [place] Address [address] [place] [address] Care Team Providers Name Role Phone Momo Forbes Primary Care Provider Encounter Details Date Type Department Care Team Description 05/31/2017 Orders Only [facility] Loy Morales Kid ney replaced by [facility] MD transplant Laboratory 420 [facility] 500 [facility] 609 [place] [phone] (Wo rk) Social History Tobacco Use Types [...] (ABNORMAL) Tacrolimus level (05/30/2017 1:01 PM CDT) [facility] Method Time Signature Tacrolimus Last 05/29/17 05/31/2017 [facility] Dose 1930 1:05 PM CDT [facility] Tacrolimus 3.0 (L) 5.0 - 05/31/2017 [facility] 15.0 ug/L 7:54 PM CDT [facility] Comment: Tacrolimus Reference Range Kidney Transplant [...] performa nce characteristics determined by the [facility], ??Special Chemistry Laboratory. It has not been [...] Phon e Number [facility] 500 [place], [place] [phone] [place] [address] documented in this encounter Visit Diagnoses Diagnosis Kidney replaced by transplant documented in this encounter Care Teams Viscera Washer Relationship Specialty Start Date End Date Momo Forbes PCP - General Family Practice 01/02/14 [facility] [address] [place] [address] documented as of this encounter
--- OUTSIDE RECORDS SUMMARY | 2022-05-19 11:35 | XMS_ITS | Encounter Summary ---
:1950 Author Organization [place] Address [address] [place] [address]. [place] [address] Care Team Providers Name Role Phone Momo Forbes Primary Care Provider Reason for Visit Reason Onset Date Comments Transplant 08/31/2017 Encounter Details Date Type Department Care Team Description 08/31/2017 Telephone [facility] Transplant Amanda Garduno Transplant Clinic M, RN [address] [phone] Social History Tobacco Use Types Packs/Day [...] on filedocumented in this encounter Care Teams Oil Recovery Operator Relationship Specialty Start Date End Date Momo Forbes PCP - General Family Practice 01/02/14 [facility] [address] [place] [address] documented as of this encounter
--- OUTSIDE RECORDS SUMMARY | 2022-05-19 11:35 | XMS_ITS | Encounter Summary ---
:1950 Author Organization [place] Address [address] [facility] [place] [address] Care Team Providers Name Role Phone Momo Forbes Primary Care Provider Encounter Details Date Type Department Care Team Description 07/15/2017 Orders Only [facility] Loy Morales Kid ney replaced by [facility] MD transplant Laboratory 420 [facility] 500 [facility] 609 [place] [phone] (Wo rk) Social History Tobacco Use Types [...] by Results for this MASS SPECTROMETRY AM PLUMBER'S ASSISTANT transplant procedure are in the results section. documented in this encounter Results (ABNORMAL) Tacrolimus level (07/15/2017 10:48 AM PLUMBER'S ASSISTANT) [facility] Method Time Signature Tacrolimus Last 0000 07/19/2017 [facility] 07/15/17 10:48 AM [facility] Tacrolimus 4.4 (L) 5.0 - 07/19/2017 [facility] Level 15.0 ug/L 2:38 PM [facility] Comment: Tacrolimus Reference Range Kidney Transplant [...] its performa nce characteristics determined by the [facility], [...] Blood specimen 07/15/2017 10:48 7 (specimen) AM PLUMBER'S ASSISTANT 10:47 AM PLUMBER'S ASSISTANT Orlando Richey MD LAB - BLOOD ORDERABLES Performing Organization Address City/State/ZIP Code Phon e Number [facility] 500 [place], [place] [phone] [place] [address] 500 [place], [place] [phone] [place] [address] documented in this encounter Visit Diagnoses Diagnosis Kidney replaced by transplant documented in this encounter Care Teams Proof Passer Relationship Specialty Start Date End Date Momo Forbes PCP - General Family Practice 01/02/14 [facility] [address] [place] [address] documented as of this encounter
--- OUTSIDE RECORDS SUMMARY | 2022-05-19 11:35 | XMS_ITS | Encounter Summary ---
:1950 Author Organization [place] Address [address] [facility] [place] [address] Care Team Providers Name Role Phone Momo Forbes Primary Care Provider Reason for Visit Reason Onset Date Comments Pre Visit Planning - Unable To Reach 10/14/2016 Encounter Details Date Type Department Care Team Description 10/14/2016 Telephone [facility] Anita Joshi MD Pre Visit Planning - Nephrology Clinic [address] [place] [address] [place] ble To Reach [address] [phone] Social History Tobacco Use Types Packs/Day Years [...] is office from Clinic [facility] at the [facility]. We are calling to remind you of your upcoming Nephrology appointment on 10/25/16 at 440pm. Please arrive about 1 hours prior to your appointment time for labs. Also, please bring an updated medication list or your labeled medication bottles with you to your appointment. If you have any questions or would like to cancel or reschedule your appointment, please call us at [phone]. You are welcome to have your labs done up to a week before your appointment at any [facility] or [facility] facility. If you have your labs completed before your appointment, please still come 30 minutes early for check-in MONROE ZURITA CMA UM BOTTLE ASSEMBLER documented in this encounter Plan of Treatment Not on filedocumented as of this encounter Visit Diagnoses Not on filedocumented in this encounter Care Teams Concrete Batcher Relationship Specialty Start Date End Date Momo oFrbes PCP - General Family Practice 01/02/14 [facility] [address] [place] [address] documented as of this encounter
--- OUTSIDE RECORDS SUMMARY | 2022-05-19 11:35 | XMS_ITS | Encounter Summary ---
:1950 Author Organization [place] Address [address]50 [place] [address] Care Team Providers Name Role Phone Momo Forbes Primary Care Provider Encounter Details Date Type Department Care Team Description 01/19/2017 Orders Only [facility] Loy Morales Aft ercare following organ transplant; [facility] Kidney replaced by transplant; Laboratory 420 [facility] Encounter for long-term curr ent use of medication [address] [place] [address] [phone] (Wo rk) Social History Tobacco Use Types [...] Results Tacrolimus level (01/19/2017 9:25 AM CDT) [facility] gist Method Time Signature Tacrolimus Last 0800 [facility] Dose 01/19/17 [facility] Tacrolimus 6.5 5.0 - [facility] 15.0 ug/L [facility] Comment: Tacrolimus Reference Range Kidney [...] its perform ance characteristics determined by the [facility], ??Special Chemistry Laboratory. It has not [...] Organization Address City/State/ZIP Code Phon e Number [phone] [place] [address] documented in this encounter Visit Diagnoses Diagnosis Aftercare following organ transplant Kidney replaced by transplant Encounter for long-term current use of m edication documented in this encounter Care Teams Braided Rug Maker Relationship Specialty Start Date End Date Momo Forbes PCP - General Family Practice 01/02/[address] [address] documented as of this encounter
--- OUTSIDE RECORDS SUMMARY | 2022-05-19 11:35 | XMS_ITS | Encounter Summary ---
:1950 Author Organization [place] Address [facility] [place] [address] Care Team Providers Name Role Phone ForbesMomo prakash A Primary Care Provider Reason for Visit Reason Onset Date Comments Refill Request 09/28/2016 Encounter Details Date Type Department Care Team Description 09/28/2016 Refill [facility] Anita Joshi MD Refill Request Nephrology Clinic [address] [place] [address] [place] [phone] Social History Tobacco Use Types Packs/Day Years [...] 1:51 PM CST Last Office Visit with Application Operations Engineer: March 2016. Medication refilled per Nephrology Clinic protocol. Janes Jauregui RN GORY MANAGER documented in this encounter Plan of Treatment Not on filedocumented as of this encounter Visit Diagnoses Diagnosis Reactive depression - Primary Dysthymic disorder documented in this encounter Care Teams Electrical Foreman Relationship Specialty Start Date End Date Momo Forbes PCP - General Family Practice 01/02/14 [facility] [address] [place] [address] documented as of this encounter
--- OUTSIDE RECORDS SUMMARY | 2022-05-19 11:35 | XMS_ITS | Encounter Summary ---
:1950 Author Organization [place] Address [facility] [place] [address] Care Team Providers Name Role Phone ForbesMomo prakash A Primary Care Provider Reason for Visit Reason Comments RECHECK Kidney follow up Encounter Details Date Type Department Care Team Description 10/25/2016 Office Visit [facility] Anita Joshi MD Renal hypertension, Nephrology Clinic [address] [place] [address] 1-[address] [place] [address] unspecified chronic [address] [place], [place] [address] (Primary Dx) [address] [phone] Social History Tobacco Use Types Packs/Day Years [...] Comments Blood Pressure 168/83 10/25/2016 4:39 PM GERIATRICS PHYSICIAN Pulse 55 10/25/2016 4:39 PM GERIATRICS PHYSICIAN Temperature 36.8 ??C (98.3 ??F) 10/25/2016 4:39 PM GERIATRICS PHYSICIAN Respiratory Rate 18 10/25/2016 4:39 PM GERIATRICS PHYSICIAN Oxygen Saturation - - Inhaled Oxygen Concentration - - Weight 138.2 kg (304 lb 9.6 oz) 10/25/2016 4:39 PM GERIATRICS PHYSICIAN Height 182.9 cm (6') 10/25/2016 4:39 PM GERIATRICS PHYSICIAN Body Mass Index 41.31 10/25/2016 4:39 PM GERIATRICS PHYSICIAN documented in this encounter Progress Notes Chucho [...] (304 lb 9.6 oz). Medication Reconciliation: complete ATRICS PHYSICIAN documented in this encounter Plan of Treatment Not on filedocumented as of this encounter Visit Diagnoses Diagnosis Renal hypertension, stage 1-4 or unspeci fied chronic kidney disease - Primary documented in this encounter Care Teams Book Salesman Relationship Specialty Start Date End Date Momo Forbes PCP - General Family Practice 01/02/14 [facility] [address] [place] [address] documented as of this encounter
--- OUTSIDE RECORDS SUMMARY | 2022-05-19 11:35 | XMS_ITS | Encounter Summary ---
:1950 Author Organization [place] Address [facility] [place] [address] Care Team Providers Name Role Phone ForbesMomo santiago A Primary Care Provider Reason for Visit Reason Onset Date Comments Transplant 06/01/2017 Diego returning call Left on 06/05/17 Encounter Details Date Type Department Care Team Description 06/01/2017 [facility] Shiva Kahn, hop picker (Diego Transplant Clinic [facility] returning call Left [facility] [address] on 06/05/17) [place], [place] [address] [place], [place] [phone] [address] Social History Tobacco Use Types Packs/Day [...] care to get a good 12-hour level. MANAGER UTILIZATION REVIEW TASK: Please fax lab order for tacrolimus level Telephone Encounter - Mary Whitehead - 06/06/2017 7:47 AM CDT Please call Diego. Called on Tuesday left to call him on Tuesday06/06/17. ADDENDUM: MANAGER UTILIZATION REVIEW TASK: Call with questions and instruction per [...] filedocumented in this encounter Care Teams Supervisor Public Message Service Relationship Specialty Start Date End Date Momo Forbes PCP - General Family Practice 01/02/14 [facility] [address] [place] [address] documented as of this encounter
--- OUTSIDE RECORDS SUMMARY | 2022-05-19 11:35 | XMS_ITS | Encounter Summary ---
:1950 Author Organization [place] Address [address] [facility] [place] [address] Care Team Providers Name Role Phone Momo Forbes A Primary Care Provider Reason for Visit Reason Onset Date Comments Refill Request 06/28/2017 mycophenolate Encounter Details Date Type Department Care Team Description 06/28/2017 Refill [facility] [place] Mariano, Joseph Refill R equest Transplant Clinic MD Herminio (mycophenolate) [address] [place] [phone] [place] [address] (Wo rk) Social History Tobacco [...] Fill Date: 05/31/17 Quantity: 180 [facility] [phone] FACTURING ENGINEERING INTERN documented in this encounter Plan of Treatment Not on filedocumented as of this encounter Visit Diagnoses Diagnosis Kidney transplanted - Primary Kidney replaced by transplant documented in this encounter Care Teams Clay Stain Mixer Relationship Specialty Start Date End Date Momo Forbes PCP - General Family Practice 01/02/[address] [address] documented as of this encounter
--- OUTSIDE RECORDS SUMMARY | 2022-05-19 11:35 | XMS_ITS | Encounter Summary ---
:1950 Author Organization [place] Address [facility] [place] [address] Care Team Providers Name Role Phone Momo Forbes Primary Care Provider Joseph Quintana MD Unavailable Encounter Details Date Type Department Care Team Description 09/09/2017 External Order [facility] Nurse, [facility] Kidney replaced by Results Transplant Clinic transplant [address] [place] [phone] Social History Tobacco Use Types Packs/Day [...] 07/15/2017 10:48 AM Result s for this PROPERTY ASSESSMENT MONITOR procedure are i n the results section. BASIC METABOLIC Routine 07/15/2017 10:48 AM Kidney replaced by Results for this PANEL PROPERTY ASSESSMENT MONITOR transplant procedure are i n the results [...] Results (ABNORMAL) Hemoglobin A1c (07/15/2017 10:48 AM PROPERTY ASSESSMENT MONITOR) Patholo gist Method Time Signature Hemoglobin A1C >14.0 (H) <=6.4 % LABDE SCAN (External) Specimen (Source) Anatomical Collection Method Collection Time Re ceived Time Location / / Volume Laterality Blood specimen 07/15/2017 10:48 (specimen) AM PROPERTY ASSESSMENT MONITOR Narrative ZACHERYMARIELABea PFT - 09/09/2017 9:36 PM PROPERTY ASSESSMENT MONITOR Verified by Sharon Martinez on 8. Patient Reported LAB - BLOOD ORDERABLES Performing Organization Address City/State/ZIP Code Phon e Number JESSICA PFT LABDE SCAN (ABNORMAL) Basic metabolic panel (07/15/2017 10:48 AM PROPERTY ASSESSMENT MONITOR) Analysis Performed At Patho logist Time Signature [...] 55 (L) >60 LABDE SCAN (if ml/min/1.7 Citizen Of [place]) 3m2 (External) GFR Estimated 46 (L) >60 LABDE SCAN (External) ml/min/1.7 3m2 Specimen (Source) Anatomical Collection Method Collection Time Re ceived Time Location / / Volume Laterality Blood specimen 07/15/2017 10:48 (specimen) AM PROPERTY ASSESSMENT MONITOR Narrative [facility] PFT - 09/09/2017 9:36 PM PROPERTY ASSESSMENT MONITOR Verified by Sharon Martinez on 8. Orlando [...] Narrative [facility] PFT - 09/09/2017 9:39 PM PROPERTY ASSESSMENT MONITOR Verified by Sharon Martinez on 8. Patient [...] Narrative [facility] PFT - 09/09/2017 9:39 PM PROPERTY ASSESSMENT MONITOR Verified by Sharon Martinez on 8. Orlando [...] 51 (L) >60 LABDE SCAN (if ml/min/1.7 Citizen Of [place]) 3m2 (External) GFR Estimated 42 (L) >60 LABDE SCAN (External) ml/min/1.7 3m2 Specimen (Source) Anatomical Collection Method Collection Time Re ceived Time Location / / Volume Laterality Blood specimen 05/30/2017 9:32 AM (specimen) CDT Narrative [facility] PFT - 09/09/2017 9:39 PM PROPERTY ASSESSMENT MONITOR Verified by Sharon Martinez on 8. Orlando [...] Narrative [facility] PFT - 09/09/2017 9:44 PM PROPERTY ASSESSMENT MONITOR Verified by Sharon Martinez on 8. Patient [...] Narrative [facility] PFT - 09/09/2017 9:44 PM PROPERTY ASSESSMENT MONITOR Verified by Sharon Martinez on 8. Patient [...] Narrative [facility]REEZE PFT - 09/09/2017 9:44 PM PROPERTY ASSESSMENT MONITOR Verified by Sharon Martinez on 8. Patient [...] 55 (L) >60 LABDE SCAN (if ml/min/1.7 Citizen Of [place]) 3m2 (External) GFR Estimated 46 (L) >60 LABDE SCAN (External) ml/min/1.7 3m2 Specimen (Source) Anatomical Collection Method Collection Time Re ceived Time Location / / Volume Laterality Blood specimen 01/19/2017 9:30 AM (specimen) CDT Narrative JESSICA PFT - 09/09/2017 9:44 PM PROPERTY ASSESSMENT MONITOR Verified by Sharon Martinez on 8. Patient Reported LAB - BLOOD ORDERABLES Performing Organization Address City/State/ZIP Code Phon e Number BREEZBea PFT LABDE SCAN documented in this encounter Visit Diagnoses Diagnosis Kidney replaced by transplant documented in this encounter Care Teams Director Of Architecture Relationship Specialty Start Date End Date Momo Forbes PCP - General Family Practice 01/02/14 [facility] [address] [place] [address] Joseph Quintana, Assigned Nephrology 03/29/21 Provider [address] [facility] 353 [facility] [address] [place] [address] documented as of this encounter
--- OUTSIDE RECORDS SUMMARY | 2022-05-19 11:35 | XMS_ITS | Encounter Summary ---
:1950 Author Organization [place] Address [address] [place] [address]. [place] [address] Care Team Providers Name Role Phone Momo Forbes Primary Care Provider Reason for Visit Reason Onset Date Comments Transplant 05/26/2017 refill Encounter Details Date Type Department Care Team Description 05/26/[address] [facility] Anita Joshi MD Transplant (refill) Nephrology Clinic [address] [place] [phone] [place] [address] (Wo rk) [address] [phone] Social History Tobacco Use Types Packs/Day Years [...] transplant documented in this encounter Care Teams Repair Service Clerk Relationship Specialty Start Date End Date Momo Forbes PCP - General Family Practice 01/02/14 [facility] [address] [place] [address] documented as of this encounter
--- OUTSIDE RECORDS SUMMARY | 2022-05-19 11:35 | XMS_ITS | Encounter Summary ---
:1950 Author Organization [place] Address [address] [place] [address]. [place] [address] Care Team Providers Name Role Phone Momo Forbes Primary Care Provider Encounter Details Date Type Department Care Team Description 03/23/2017 Orders Only [facility] [place] Richey Kidne y replaced by Nephrology Clinic transplant (Primary [address] Dx) [address] [place] [address] [phone] Social History Tobacco Use Types Packs/Day [...] Primary documented in this encounter Care Teams Yacht Hand Relationship Specialty Start Date End Date Momo Forbes PCP - General Family Practice 01/02/14 [facility] [address] [place] [address] documented as of this encounter
--- OUTSIDE RECORDS SUMMARY | 2022-05-19 11:35 | XMS_ITS | Encounter Summary ---
:1950 Author Organization [place] Address [address] [place] [address]. [place] [address] Care Team Providers Name Role Phone Momo Forbes Primary Care Provider Reason for Visit Reason Onset Date Comments Transplant 12/02/2016 refill Encounter Details Date Type Department Care Team Description 12/02/2016 Refill [facility] Anita Joshi MD Transplant (refill) Nephrology Clinic [address] [place] [phone] [place] [address] (Wo rk) [address] [phone] Social History Tobacco Use Types Packs/Day Years [...] documented in this encounter Care Teams Manager Learning Relationship Specialty Start Date End Date Momo Forbes PCP - General Family Practice 01/02/14 [facility] [address] [place] [address] documented as of this encounter
--- OUTSIDE RECORDS SUMMARY | 2022-05-19 11:35 | XMS_ITS | Encounter Summary ---
:1950 Author Organization [place] Address [address] [place] [address] Care Team Providers Name Role Phone ForbesMomo santiago A Primary Care Provider Encounter Details Date Type Department Care Team Description 05/30/2017 Hospital Encounter [facility] [place] Richey, [facility] [address] [phone] (Wo rk) Social History Tobacco Use Types [...] on filedocumented in this encounter Care Teams Photolithographic Stripper Relationship Specialty Start Date End Date Momo Forbes PCP - General Family Practice 01/02/14 [facility] [address] [place] [address] documented as of this encounter
--- OUTSIDE RECORDS SUMMARY | 2022-05-19 11:35 | XMS_ITS | Encounter Summary ---
:1950 Author Organization [place] Address [facility] [address] Care Team Providers Name Role Phone ForbesMomo prakash A Primary Care Provider Encounter Details Date Type Department Care Team Description 10/25/2016 Orders Only [facility] Thrombocytopenia (H); [address] Aftercare following organ tr ansplant; 1st Floor Kidney replaced by transplan t; [place], [place] Encounter fo r long-term current use [...] Thrombocytopenia (H) Resu lts for this PM COLOR CONTROL SUPERVISOR procedure are i n the results section. BASIC METABOLIC Routine 10/25/2016 3:54 Aftercare following Re sults for this PANEL PM COLOR CONTROL SUPERVISOR organ transplant procedure are in Kidney replaced by the resul ts transplant section. Encounter for long-term current use of medication CBC WITH PLATELETS Routine 10/25/2016 3:54 Aftercare following Results for this PM COLOR CONTROL SUPERVISOR organ transplant procedure are in Kidney replaced by the [facility] ts transplant section. Encounter for long-term current use of medication PROTEIN RANDOM Routine 10/25/2016 3:52 Aftercare following Res ults for this URINE PM COLOR CONTROL SUPERVISOR organ transplant procedure are in Kidney replaced by the [facility] ts transplant section. Encounter for long-term current use of medication CREATININE URINE Routine 10/25/2016 3:52 Thrombocytopenia (H) Results for this CALCULATION ONLY PM COLOR CONTROL SUPERVISOR procedure a re in (LAB ONLY) the results section. documented in this encounter Results (ABNORMAL) Basic metabolic panel (10/25/2016 3:54 PM COLOR CONTROL SUPERVISOR) [facility] Method Time Signature Sodium 142 133 - 144 [facility] mmol/L [facility] Potassium 4.2 3.4 - 5.3 [facility] mmol/L [facility] Chloride 108 94 - 109 [facility] mmol/L [facility] Carbon Dioxide 28 20 - 32 [facility] mmol/L [facility] Anion Gap 7 3 - 14 [facility] mmol/L [facility] Glucose 120 (H) 70 - 99 [facility] mg/dL [facility] Urea Nitrogen 19 7 - 30 [facility] mg/dL [facility] Creatinine 1.39 (H) 0.66 - [facility] 1.25 mg/dL [facility] GFR Estimate 51 (L) >60 [facility] mL/min/1.7 [place] m2 [facility] Comment: Non GFR Calc GFR Estimate If Black 62 >60 mL/min/1.7m2 [facility] Comment: GFR Calc Calcium 9.4 8.5 - 10.1 mg/dL [facility] Specimen Anatomical Collection Method Collection Time Receive d Time (Source) Location / / Volume Laterality Blood specimen 10/25/2016 3:54 PM 017 3:55 (specimen) COLOR CONTROL SUPERVISOR PM COLOR CONTROL SUPERVISOR Chucho Joshi MD LAB - BLOOD ORDERABLES Performing Organization Address City/State/ZIP Code Phon e Number [address] [phone] [facility] (ABNORMAL) CBC with platelets (10/25/2016 3:54 PM COLOR CONTROL SUPERVISOR) Analysis Performed At Patho logist Time Signature WBC 5.1 4.0 - 11.0 [facility] 10e9/L [facility] RBC Count 5.50 4.4 - 5.9 [facility] 10e12/L [facility] Hemoglobin 15.5 13.3 - [facility] 17.7 g/dL [facility] Hematocrit 46.0 40.0 - [facility] 53.0 % [facility] MCV 84 78 - 100 [facility] fl [facility] MCH 28.2 26.5 - [facility] 33.0 pg [facility] MCHC 33.7 31.5 - [facility] 36.5 g/dL [facility] RDW 14.1 10.0 - [facility] 15.0 % [facility] Platelet Count 124 (L) 150 - 450 [facility] 10e9/L [facility] Specimen Anatomical Collection Method Collection Time Receive d Time (Source) Location / / Volume Laterality Blood specimen 10/25/2016 3:54 PM 017 3:55 (specimen) COLOR CONTROL SUPERVISOR PM COLOR CONTROL SUPERVISOR Chucho Joshi MD LAB - BLOOD ORDERABLES Performing Organization Address City/[facility] [address]/[facility] [place] [address] [facility] Folate RBC (10/25/2016 3:54 PM COLOR CONTROL SUPERVISOR) P athologist Signature HCT Within 46.0 % [facility] Past 24h [facility] Folate RBC 663 ng/mL [facility] Comment: Reference range: >=366 (Note) Performed by [email or web address], [address] [place] [id number] [email or web address], Geoff Reed MD, Lab. Director Specimen Anatomical Collection Method Collection Time Receive d Time (Source) Location / / Volume Laterality Blood specimen 10/25/2016 3:54 PM 017 3:55 (specimen) COLOR CONTROL SUPERVISOR PM COLOR CONTROL SUPERVISOR Chucho Joshi MD LAB - BLOOD ORDERABLES Performing Organization Address City/[facility] [address]/ZIP Code Phon e Number [address] [id number] [facility] Creatinine urine calculation only (10/25/2016 3:52 PM COLOR CONTROL SUPERVISOR) P athologist Signature Creatinine 152 mg/dL [facility] Specimen Anatomical Collection Method Collection Time Receive d Time (Source) Location / / Volume Laterality 10/25/2016 3:52 PM 201 7 4:12 COLOR CONTROL SUPERVISOR PM COLOR CONTROL SUPERVISOR Chucho Joshi MD LAB - URINE ORDERABLES Performing Organization Address City/State/ZIP Code Phon e Number M [facility] [address] [place] [address] [facility] [address] [place] [address], [place] [phone] (ABNORMAL) Protein random urine (10/25/2016 3:52 PM COLOR CONTROL SUPERVISOR) Analysis Performed At Patho logist Time Signature Protein Random 0.48 g/L [facility] Protein Total 0.31 (H) 0 - 0.2 [place] Urine g/gr g/g Cr [facility] Specimen Anatomical Collection Method Collection Time Receive d Time (Source) Location / / Volume Laterality Urine specimen 10/25/2016 3:52 PM 017 4:12 (specimen) COLOR CONTROL SUPERVISOR PM COLOR CONTROL SUPERVISOR Chucho Joshi MD LAB - URINE ORDERABLES Performing Organization Address City/State/ZIP Code Phon e Number [facility] [address] [place] [address] [facility] [address] [place] [address], [place] [phone] documented in this encounter Visit Diagnoses Diagnosis Thrombocytopenia (H) Thrombocytopenia, unspecified Aftercare following organ transplant Kidney replaced by transplant Encounter for long-term current use of m edication documented in this encounter Care Teams Road Equipment Operator Relationship Specialty Start Date End Date Momo Forbes PCP - General Family Practice 01/02/14 [facility] [address] [place] [address] documented as of this encounter
--- OUTSIDE RECORDS SUMMARY | 2022-05-19 11:35 | XMS_ITS | Encounter Summary ---
:1950 Author Organization [place] Address [address] [place] [address]. [place] [address] Care Team Providers Name Role Phone Momo Forbes Primary Care Provider Reason for Visit Reason Onset Date Comments Refill Request 08/31/2017 mycophenolate Encounter Details Date Type Department Care Team Description 08/31/2017 Refill [facility] Mariano, Joseph Refill R equest Transplant Clinic MD Herminio (mycophenolate) [address] [place] [phone] [place] [address] (Wo rk) Social History Tobacco [...] transplant documented in this encounter Care Teams Refinery Operator Gas Plant Relationship Specialty Start Date End Date Momo Forbes PCP - General Family Practice 01/02/14 [facility] [address] [place], [place] [phone] documented as of this encounter
--- OUTSIDE RECORDS SUMMARY | 2022-05-19 11:36 | XMS_ITS | Encounter Summary ---
:1950 Author Organization [place] Address [address] [place] [address]. [place] [address] Care Team Providers Name Role Phone Momo Forbes Primary Care Provider Reason for Visit Reason Onset Date Comments Transplant Pharmacy Medication Review 02/05/2016 Encounter Details Date Type Department Care Team Description 02/05/2016 Telephone [facility] Nani Humphrey, [facility] Transplant Pharmacy [address] [facility] [place] [address] MOBILE [phone] [place] [address] (Wo rk) Social History Tobacco Use Types [...] filedocumented in this encounter Care Teams Mechanical Engineering Lecturer Relationship Specialty Start Date End Date Momo Forbes PCP - General Family Practice 01/02/14 [facility] [address] [place] [address] documented as of this encounter
--- OUTSIDE RECORDS SUMMARY | 2022-05-19 11:36 | XMS_ITS | Encounter Summary ---
:1950 Author Organization [place] Address [facility] [place] [address] Care Team Providers Name Role Phone Ingrid Santana RN Unavailable Momo Forbes Primary Care Provider Encounter Details Date Type Department Care Team Description 12/27/2014 External Order Results The Transplant Ce krish Nurse, [facility] 2nd Floor, Clinic [address] [address] Social History Tobacco Use Types [...] External Lab Result (12/25/2014 9:48 AM CDT) [facility] Method Time Signature Sodium 138 135 [...] 51 (L) >60 LABDE SCAN (if ml/min/1. Qatari) 73m2 (External) GFR Estimated 42 (L) >60 [...] on filedocumented in this encounter Care Teams Rehabilitation Case Coordinator Relationship Specialty Start Date End Date Momo Forbes PCP - General Family Practice 01/02/14 [facility] [address] [place] [address] Ingrid Santana, RN Registered Nurse Transplant 02/10/12 10/01/15 documented as of this encounter
--- OUTSIDE RECORDS SUMMARY | 2022-05-19 11:36 | XMS_ITS | Encounter Summary ---
:1950 Author Organization [place] Address [address] [place] [address]. [place] [address] Care Team Providers Name Role Phone Ingrid Santana RN Unavailable Momo Forbes Primary Care Provider Encounter Details Date Type Department Care Team Description 08/29/2015 Orders Only The Transplant Deepa Morgan Aftercare following organ tr ansplant (Primary Dx); 2nd Floor, Clinic 2A Saima Kidney replaced by transplan t; [facility] er for long-term current use of medication [address] [address] Social History Tobacco Use Types [...] edication documented in this encounter Care Teams Medical Equipment Technician Relationship Specialty Start Date End Date Momo Forbes PCP - General Family Practice 01/02/14 [facility] [address] [place] [address] Ingrid Santana, RN Registered Nurse Transplant 02/10/12 10/01/15 documented as of this encounter
--- OUTSIDE RECORDS SUMMARY | 2022-05-19 11:36 | XMS_ITS | Encounter Summary ---
:1950 Author Organization [place] Address [address] [place] [address]. [place] [address] Care Team Providers Name Role Phone Momo Forbes Primary Care Provider Reason for Visit Reason Onset Date Comments Transplant 03/15/2016 refill Encounter Details Date Type Department Care Team Description 03/15/2016 Refill [facility] Cristy Chen LPN T ransplant (refill) Transplant Clinic [address] [place] [address] [phone] Social History Tobacco Use Types Packs/Day [...] transplant documented in this encounter Care Teams Steel Turner Relationship Specialty Start Date End Date Momo Forbes PCP - General Family Practice 01/02/14 [facility] [address] [place] [address] documented as of this encounter
--- OUTSIDE RECORDS SUMMARY | 2022-05-19 11:36 | XMS_ITS | Encounter Summary ---
:1950 Author Organization [place] Address [facility] [place] [address] Care Team Providers Name Role Phone Momo Forbes Primary Care Provider Joseph Quintana MD Unavailable Encounter Details Date Type Department Care Team Description 05/03/[address] [facility] Nurse, [facility] Transplant Clinic [address] [place] [address] Social History Tobacco Use Types [...] filedocumented in this encounter Care Teams Manager Quantitative Relationship Specialty Start Date End Date Momo Forbes PCP - General Family Practice 01/02/14 [facility] [address] [place] [address] Joseph Quintana, Assigned Nephrology 03/29/21 MD Provider [address] [place], [place] [address] documented as of this encounter
--- OUTSIDE RECORDS SUMMARY | 2022-05-19 11:36 | XMS_ITS | Encounter Summary ---
:1950 Author Organization [place] Address [address] [place] [address]. [place] [address] Care Team Providers Name Role Phone Momo Forbes Primary Care Provider Reason for Visit Reason Onset Date Comments Transplant 01/16/2016 refill Encounter Details Date Type Department Care Team Description 01/16/2016 Refill The Transplant Deysi Burns MD Transplant (refill) 2nd Floor, Clinic [address]A [phone] [place] [address] [facility] [place] [address] Social History Tobacco Use Types [...] transplant documented in this encounter Care Teams Singer And Unloader Relationship Specialty Start Date End Date Momo Forbes PCP - General Family Practice 01/02/14 [facility] [address] [place], [place] [phone] documented as of this encounter
--- OUTSIDE RECORDS SUMMARY | 2022-05-19 11:36 | XMS_ITS | Encounter Summary ---
:1950 Author Organization [place] Address [address] [place] [address]. [place] [address] Care Team Providers Name Role Phone Ingrid Santana RN Unavailable Momo Forbes Primary Care Provider Encounter Details Date Type Department Care Team Description 10/04/2014 External Order Results The Transplant Ce ntjakob Nurse, [facility] 2nd Floor, Clinic [address]A [address] [address] Social History Tobacco Use Types [...] 8:33 AM Results f or this RESULTS BOTTOM CRANE OPERATOR procedure are i n the results section. documented in this encounter Results (ABNORMAL) TXP External Lab Result (10/03/2014 8:33 AM BOTTOM CRANE OPERATOR) Analysis Performed At Patho logist Time Signature [...] 57 (L) >60 LABDE SCAN (if ml/min/1.7 Barbadian) 3m2 (External) GFR Estimated 47 (L) >60 [...] / / Volume Laterality 10/03/2014 8:33 AM BOTTOM CRANE OPERATOR Narrative JESSICA PFT - 10/04/2014 8:51 AM BOTTOM CRANE OPERATOR Verified by Josseline Palma on 5. Patient Reported LABORATORY Performing Organization Address City/State/ZIP Code Phon e Number [facility] LABDE SCAN documented in this encounter Visit Diagnoses Not on filedocumented in this encounter Care Teams Equipment Operator Intermodal Yard Relationship Specialty Start Date End Date Momo Forbes PCP - General Family Practice 01/02/14 [facility] [address] [place] [phone] Ingrid Santana, RN Registered Nurse Transplant 02/10/12 10/01/15 documented as of this encounter
--- OUTSIDE RECORDS SUMMARY | 2022-05-19 11:36 | XMS_ITS | Encounter Summary ---
:1950 Author Organization [place] Address [facility] [place] [address] Care Team Providers Name Role Phone Ingrid Santana RN Unavailable Momo Forbes Primary Care Provider Joseph Quintana MD Unavailable Encounter Details Date Type Department Care Team Description 08/14/2015 External Order Results The Transplant Ce nter Nurse, [facility] 2nd Floor, Clinic [address]A [address] [phone] Social History Tobacco Use Types Packs/Day Years [...] 4:41 PM Results f or this RESULTS CAP SEWER procedure are i n the results section. documented in this encounter Results (ABNORMAL) TXP External Lab Result (08/12/2015 4:41 PM CAP SEWER) [facility] Time Signature Sodium 135 135 - 145 [...] 59 (L) >60 LABDE SCAN (if mL/min/1.7 Taiwanese) 3/m2 (External) GFR Estimated 48 (L) >60 [...] / / Volume Laterality 08/12/2015 4:41 PM CAP SEWER Narrative [facility] - 08/14/2015 9:25 AM CAP SEWER Verified by Freddy Mehta on 08/14. Patient Reported LABORATORY Performing Organization Address City/State/ZIP Code Phon e Number [facility] LABDE SCAN documented in this encounter Visit Diagnoses Not on filedocumented in this encounter Care Teams Dosier Operator Relationship Specialty Start Date End Date Momo Forbes PCP - General Family Practice 01/02/14 [facility] [address] [place] [address] Ingrid Santana, RN Registered Nurse Transplant 02/10/12 10/01/15 Joseph Quintana, Assigned Nephrology 03/29/21 MD Provider [address] [place] [address] 353 [facility] [address] [place] [address] documented as of this encounter
--- OUTSIDE RECORDS SUMMARY | 2022-05-19 11:36 | XMS_ITS | Encounter Summary ---
:1950 Author Organization [place] Address [address] [place] [address] Care Team Providers Name Role Phone Ingrid Santana RN Unavailable Momo Forbes Primary Care Provider Reason for Visit Reason Onset Date Comments Medication Question 10/11/2014 Encounter Details Date Type Department Care Team Description 10/11/2014 Telephone [facility] Beny Staton RPH Medication Question 500 [facility] [place] [address] PHARMACY [phone] [place], [place] [phone] Social History Tobacco Use Types Packs/Day Years [...] activity before he checks it. Beny Staton Ltac, Located Within [facility] Specialty Pharmacist [phone] E MAKER documented in this encounter Plan of Treatment Not on filedocumented as of this encounter Visit Diagnoses Not on filedocumented in this encounter Care Teams Hotel Front Office Manager Relationship Specialty Start Date End Date Momo Forbes PCP - General Family Practice 01/02/14 [facility] [address] [place] [address] Ingrid Santana, RN Registered Nurse Transplant 02/10/12 10/01/15 documented as of this encounter
--- OUTSIDE RECORDS SUMMARY | 2022-05-19 11:36 | XMS_ITS | Encounter Summary ---
:1950 Author Organization [place] Address [address] [place] [address] Care Team Providers Name Role Phone Ingrid Santana RN Unavailable Momo Forbes Primary Care Provider Encounter Details Date Type Department Care Team Description 07/22/2015 Orders Only [facility] Dereck Dangelo MD [facility] 420 [facility] 195 500 [place], [place] [address] [place] [address] [phone] Social History Tobacco Use Types Packs/Day Years [...] PM R esults for this MASS SPECTROMETRY DEVELOPER PROVER UPHOLSTERING procedure are in the results section. documented in this encounter Results Tacrolimus level (08/12/2015 4:35 PM DEVELOPER PROVER UPHOLSTERING) [facility] Method Time Signature Tacrolimus Last 0700 [facility] Dose 08/12/15 [facility] Tacrolimus 5.3 5.0 - [facility] Level 15.0 ug/L [facility] Comment: Tacrolimus Reference Range Kidney [...] its perform ance characteristics determined by the [facility], ??Special Chemistry Laboratory. It has not [...] Volume Laterality 08/12/2015 4:35 PM 5 9:11 DEVELOPER PROVER UPHOLSTERING AM DEVELOPER PROVER UPHOLSTERING Mingo Matas MD LAB - BLOOD ORDERABLES Performing Organization Address City/State/ZIP Code Phon e Number [facility] [address] documented in this encounter Visit Diagnoses Not on filedocumented in this encounter Care Teams Sand Conditioner Machine Relationship Specialty Start Date End Date Momo Forbes PCP - General Family Practice 01/02/14 [facility] [address] [place] [address] Ingrid Santana, RN Registered Nurse Transplant 02/10/12 10/01/15 documented as of this encounter
--- OUTSIDE RECORDS SUMMARY | 2022-05-19 11:36 | XMS_ITS | Encounter Summary ---
:1950 Author Organization [place] Address [facility] [place] [address] Care Team Providers Name Role Phone Ingrid Santana RN Unavailable oMmo Forbes Primary Care Provider Joseph Quintana MD Unavailable Encounter Details Date Type Department Care Team Description 02/03/2015 External Order Results The Transplant Ce nter Nurse, [facility] 2nd Floor, Clinic [address]A [address] [phone] Social History Tobacco Use Types [...] External Lab Result (01/28/2015 8:56 AM CDT) [facility] Method Time Signature Sodium (External) 140 [...] on filedocumented in this encounter Care Teams White Metal Corrosion Proofer Relationship Specialty Start Date End Date Momo Forbes PCP - General Family Practice 01/02/14 [facility] [address] [place] [address] Ingrid Santana, RN Registered Nurse Transplant 02/10/12 10/01/15 Joseph Quintana, Assigned Nephrology 03/29/21 MD Provider 717 [facility] 353 [facility] 1932 [place], [place] [id number] documented as of this encounter
--- OUTSIDE RECORDS SUMMARY | 2022-05-19 11:36 | XMS_ITS | Encounter Summary ---
:1950 Author Organization [place] Address [facility] [place] [address] Care Team Providers Name Role Phone ForbesMomo prakash A Primary Care Provider Reason for Visit Reason Onset Date Comments Transplant Immunosuppression Management 08/13/2016 Encounter Details Date Type Department Care Team Description 08/13/2016 Telephone [facility] Shiva Kahn Transp lant Transplant Clinic RN Immunosuppression 9 [facility] Management [address] [phone] [place] [address] [place], [place] [phone] Social History Tobacco Use Types Packs/Day Years [...] Patient will repeat labs in 1-2 weeks. ER LEVELER Telephone Encounter - Shiva Kahn, RN - 08/13/2016 7:42 AM CST Tacrolimus level 3.8 reported as 18-hour level. PLAN: Verify timing of labs tac dose and time of blood draw for tac level. Repeat tac level taking care to get a good 12-hour level (11-13 hours acceptable). TASK: Please call patient with questions and instructions per plan. ER LEVELER documented in this encounter Plan of Treatment Not on filedocumented as of this encounter Visit Diagnoses Diagnosis Kidney replaced by transplant - Primary Aftercare following organ transplant Encounter for long-term current use of m edication documented in this encounter Care Teams Owner Professional Engineer Relationship Specialty Start Date End Date Momo Forbes PCP - General Family Practice 01/02/14 [facility] [address] [place] [address] documented as of this encounter
--- OUTSIDE RECORDS SUMMARY | 2022-05-19 11:36 | XMS_ITS | Encounter Summary ---
:1950 Author Organization [place] Address [address] [place] [address]. [place] [address] Care Team Providers Name Role Phone Momo Forbes Primary Care Provider Reason for Visit Reason Onset Date Comments Transplant 02/19/2016 refill Encounter Details Date Type Department Care Team Description 02/19/2016 Refill The Transplant Deysi Burns MD Transplant (refill) 2nd Floor, Clinic [address]A [phone] [place] [address] [facility] [place] [address] Social History Tobacco Use Types [...] transplant documented in this encounter Care Teams Basin Tender Relationship Specialty Start Date End Date Momo Forbes PCP - General Family Practice 01/02/14 [facility] 1999 [place], [place] [phone] documented as of this encounter
--- OUTSIDE RECORDS SUMMARY | 2022-05-19 11:36 | XMS_ITS | Encounter Summary ---
:1950 Author Organization [place] Address [facility] [place] [address] Care Team Providers Name Role Phone Momo Forbes Primary Care Provider Joseph Quintana MD Unavailable Encounter Details Date Type Department Care Team Description 03/18/[address] [facility] Nurse, [facility] Transplant Clinic 9 [place] [address] Social History Tobacco Use Types [...] External Lab Result (03/17/2016 10:45 AM CDT) [facility] Method Time Signature Sodium (External) 139 [...] on filedocumented in this encounter Care Teams Analytical Research Program Manager Relationship Specialty Start Date End Date Momo Forbes PCP - General Family Practice 01/02/14 [facility] [address] [place] [address] Joseph Quintana, Assigned Nephrology 03/29/21 MD Provider [address] [place] [address] [address] [place] [address] documented as of this encounter
--- OUTSIDE RECORDS SUMMARY | 2022-05-19 11:36 | XMS_ITS | Encounter Summary ---
:1950 Author Organization [place] Address [facility] [place] [address] Care Team Providers Name Role Phone Ingrid Santana RN Unavailable Momo Forbes Primary Care Provider Reason for Referral Consultation - Closed Specialty Diagnoses / Procedures Referred By Contact Refer red To Contact Diagnoses Morbid obesity due to excess calories (H) Deysi Alicea MD [facility] [address] [place] [id number] Referral ID Status Reason Start Date Expiration Date Visits Requ ested Visits Authorized [id number] Closed 09/02/2015 09/01/2016 1 1 ICATIONS PROJECT MANAGER Reason for Visit Reason Comments RECHECK Follow up Kidney TX 4 Encounter Details Date Type Department Care Team Description 09/02/2015 Office Visit Nephrology Deysi Alicea, S/P kidney transplant (Prima ry Dx); 2nd Floor, Clinic 2A Morbid obesity due to excess calories (H ) Tommy Wilburn [address] [place] [phone] [place] [address] (Wo rk) [phone] Social History Tobacco Use Types Packs/Day Years [...] Comments Blood Pressure 128/72 09/02/2015 4:32 PM APPLICATIONS PROJECT MANAGER Pulse 61 09/02/2015 4:32 PM APPLICATIONS PROJECT MANAGER Temperature 36.7 ??C (98 ??F) 09/02/2015 4:32 PM APPLICATIONS PROJECT MANAGER Respiratory Rate - - Oxygen Saturation 94% 09/02/2015 4:32 PM APPLICATIONS PROJECT MANAGER Inhaled Oxygen Concentration - - Weight 141.8 kg (312 lb 9.6 oz) 09/02/2015 4:32 PM APPLICATIONS PROJECT MANAGER Height 182.9 cm (6' 0.01) 09/02/2015 4:32 PM APPLICATIONS PROJECT MANAGER Body Mass Index 42.39 09/02/2015 4:32 PM APPLICATIONS PROJECT MANAGER documented in this encounter Progress Notes Deysi [...] discharged on Cumadin; Cumadin was stopped by unit aide during the follow up visit, as he [...] Years of Education: 14 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 BP completed using cuff size: large ICATIONS PROJECT MANAGER documented in this encounter Plan of [...] ) documented in this encounter Care Teams Consumer Experience Consultant Relationship Specialty Start Date End Date Momo Forbes PCP - General Family Practice 01/02/14 [facility] [address] [place] [address] Ingrid Santana, RN Registered Nurse Transplant 02/10/12 10/01/15 documented as of this encounter
--- OUTSIDE RECORDS SUMMARY | 2022-05-19 11:36 | XMS_ITS | Encounter Summary ---
:1950 Author Organization [place] Address [address] [place] [address] Care Team Providers Name Role Phone ForbesMomo santiago A Primary Care Provider Encounter Details Date Type Department Care Team Description 02/20/2016 Orders Only [facility] Mariano, Joseph Perdomo isael, [facility] jm MICHELE 500 [facility] 717 [place], [place] [phone] [address] [address] [place] [address] (Wo rk) Social History Tobacco [...] (ABNORMAL) Tacrolimus level (03/17/2016 10:44 AM CDT) [facility] Method Time Signature Tacrolimus Last 2100 [facility] Dose 03/16/16 [facility] Tacrolimus 4.2 (L) 5.0 - [facility] Level 15.0 ug/L [facility] Comment: [...] Phon e Number [facility] 500 [place], [place] [phone] [place] [address] documented in this encounter Visit Diagnoses Not on filedocumented in this encounter Care Teams Security Installation Technician Relationship Specialty Start Date End Date Momo Forbes PCP - General Family Practice 01/02/14 [facility] [address] [place] [address] documented as of this encounter
--- OUTSIDE RECORDS SUMMARY | 2022-05-19 11:36 | XMS_ITS | Encounter Summary ---
:1950 Author Organization [place] Address [facility] [place] [address] Care Team Providers Name Role Phone Forbes, Ton Primary Care Provider Reason for Visit Reason Comments RECHECK 6 mo follow up,christiano cruz Encounter Details Date Type Department Care Team Description 04/20/[address] [facility] Chucho Joshi, Renal hypertension, stage 1-4 or unspecified chronic kidney disease (Primary Dx); Nephrology Clinic Reactive depression; [address] Thrombocytopenia (H) 909 [facility] RANJAN [address] [place] [address] Social History Tobacco Use Types Packs/Day [...] Body Mass Index 41.55 09/02/2015 4:32 PM HOME STAGER documented in this encounter Progress Notes Chucho [...] encounter Results Folate RBC (10/25/2016 3:54 PM HOME STAGER) athologist Signature HCT Within 46.0 % [address] Folate RBC 663 ng/mL [facility] Comment: Reference range: >=366 (Note) Performed by [facility], [address] [facility] [place] [address] [email or web address], Geoff Reed MD, Lab. Director Specimen Anatomical Collection Method Collection Time Receive d Time (Source) Location / / Volume Laterality Blood specimen 10/25/2016 3:54 PM 017 3:55 (specimen) HOME STAGER PM HOME STAGER Chucho Joshi MD LAB - BLOOD ORDERABLES Performing Organization Address City/State/[facility] Code Phon e Number [address] [address] [facility] documented in this encounter Visit Diagnoses Diagnosis Renal hypertension, stage 1-4 or unspeci fied chronic kidney disease - Primary Reactive depression Dysthymic disorder Thrombocytopenia (H) Thrombocytopenia, unspecified documented in this encounter Care Teams Epic Willow Specialist Relationship Specialty Start Date End Date Momo Forbes PCP - General Family Practice 01/02/[address] [address] documented as of this encounter
--- OUTSIDE RECORDS SUMMARY | 2022-05-19 11:36 | XMS_ITS | Encounter Summary ---
:1950 Author Organization [place] Address [address] [place] [address] Care Team Providers Name Role Phone Ingrid Santana RN Unavailable Momo Forbes Primary Care Provider Reason for Visit Reason Onset Date Comments Medication Question 09/12/2014 Encounter Details Date Type Department Care Team Description 09/12/2014 Telephone [facility] Beny Staton RPH Medication Question 500 [facility] [place] [address] PHARMACY [phone] [place], [place] [phone] Social History Tobacco Use Types Packs/Day Years [...] his dr told himhis bp was good. S STOCK ASSOCIATE documented in this encounter Plan of Treatment Not on filedocumented as of this encounter Visit Diagnoses Not on filedocumented in this encounter Care Teams Non Destructive Testing Technician Relationship Specialty Start Date End Date Momo Forbes PCP - General Family Practice 01/02/14 [facility] [address] [place] [address] Ingrid Santana, RN Registered Nurse Transplant 02/10/12 10/01/15 documented as of this encounter
--- OUTSIDE RECORDS SUMMARY | 2022-05-19 11:36 | XMS_ITS | Encounter Summary ---
:1950 Author Organization [place] Address [facility] [place] [address] Care Team Providers Name Role Phone Ingrid Santana RN Unavailable Momo Forbes Primary Care Provider Reason for Visit Reason Onset Date Comments Refill Request 06/23/2015 amlodipine Encounter Details Date Type Department Care Team Description 06/23/2015 Refill [facility] [address] Refill Request Physicians Orestes Hernandez MD (amlodipine) Tommy [facility] Building [place] 4th Floor, Clinic 4B [address] [facility] [address] [phone] (Wo rk) [address] [phone] Social History Tobacco Use Types Packs/Day Years [...] # refills: 3 Last Office Visit with [facility] primary care provider: 05/14/2014 Future Office Visit: BP Readings from Last 3 Encounters: 05/14/14 141/65 05/13/14 139/73 04/09/14 163/78 [facility] [phone] RIOR DESIGN PRINCIPAL documented in this encounter Plan of Treatment Not on filedocumented as of this encounter Visit Diagnoses Diagnosis HTN (hypertension) - Primary Unspecified essential hypertension documented in this encounter Care Teams Management Consulting Relationship Specialty Start Date End Date Momo Forbes PCP - General Family Practice 01/02/14 [facility] [address] [place] [address] Ingrid Santana, RN Registered Nurse Transplant 02/10/12 10/01/15 documented as of this encounter
--- OUTSIDE RECORDS SUMMARY | 2022-05-19 11:36 | XMS_ITS | Encounter Summary ---
:1950 Author Organization [place] Address [address] [place] [address] Care Team Providers Name Role Phone Ingrid Santana RN Unavailable Momo Forbes Primary Care Provider Encounter Details Date Type Department Care Team Description 09/22/2014 Orders Only [facility], [facility] jm [place] [address] [phone] [place] [address] 428 [place] [address] (Wo rk) Social History Tobacco [...] AM R esults for this MASS SPECTROMETRY DEALER RELATIONSHIP MANAGER procedure are in the results section. TACROLIMUS BY TANDEM Routine 10/03/2014 8:30 AM R esults for this MASS SPECTROMETRY DEALER RELATIONSHIP MANAGER procedure are in the results section. documented in this encounter Results Tacrolimus level (10/17/2014 8:15 AM DEALER RELATIONSHIP MANAGER) [facility] Method Time Signature Tacrolimus Last 2029 [facility] Dose 10/16/14 [facility] Tacrolimus 9.2 5.0 - [facility] Level 15.0 ug/L [facility] Comment: Tacrolimus Reference Range Kidney [...] / Volume Laterality 10/17/2014 8:15 AM 5 DEALER RELATIONSHIP MANAGER 11:17 AM DEALER RELATIONSHIP MANAGER Mingo Dangelo MD LAB - BLOOD ORDERABLES Performing Organization Address City/State/ZIP Code Phon e Number [facility] [address] [place] [address] [facility] Tacrolimus level (10/03/2014 8:30 AM DEALER RELATIONSHIP MANAGER) [facility] gist Method Time Signature Tacrolimus Last 10/02/14 [facility] Dose 2030 [facility] Tacrolimus 7.4 5.0 - [facility] Level 15.0 ug/L [facility] Comment: Tacrolimus Reference Range Kidney [...] / Volume Laterality 10/03/2014 8:30 AM 5 DEALER RELATIONSHIP MANAGER 11:09 AM DEALER RELATIONSHIP MANAGER Mingo Dangelo MD LAB - BLOOD ORDERABLES Performing Organization Address City/State/[facility] Code Phon e Number [facility] [address] documented in this encounter Visit Diagnoses Not on filedocumented in this encounter Care Teams Powerhouse Mechanic Supervisor Relationship Specialty Start Date End Date Momo Forbes PCP - General Family Practice 01/02/14 [facility] [address] [place] [address] Ingrid Santana, RN Registered Nurse Transplant 02/10/12 10/01/15 documented as of this encounter
--- OUTSIDE RECORDS SUMMARY | 2022-05-19 11:36 | XMS_ITS | Encounter Summary ---
:1950 Author Organization [place] Address [address] [place] [address] Care Team Providers Name Role Phone Ingrid Santana RN Unavailable Momo Forbes Primary Care Provider Reason for Visit Reason Onset Date Comments Medication Question 01/17/2015 Encounter Details Date Type Department Care Team Description 01/17/2015 Telephone [facility] Beny Staton RPH Medication Question 500 [facility] [place] [address] PHARMACY [phone] [place], [place] [phone] Social History Tobacco Use Types Packs/Day Years [...] keep better tabs. His last to in [employer] were good but that was 8 months ago. Beny Staton [facility] Specialty Pharmacist [phone] documented in this encounter Plan of Treatment Not on filedocumented as of this encounter Visit Diagnoses Not on filedocumented in this encounter Care Teams Private Household Worker Relationship Specialty Start Date End Date Momo Forbes PCP - General Family Practice 01/02/14 [facility] [address] [place] [address] Ingrid Santana, RN Registered Nurse Transplant 02/10/12 10/01/15 documented as of this encounter
--- OUTSIDE RECORDS SUMMARY | 2022-05-19 11:36 | XMS_ITS | Encounter Summary ---
:1950 Author Organization [place] Address [facility]0 [facility] [place] [address] Care Team Providers Name Role Phone Ingrid Santana RN Unavailable Momo Forbes Primary Care Provider Reason for Visit Reason Onset Date Comments Patient Reminder 08/28/2015 Encounter Details Date Type Department Care Team Description 08/28/2015 Telephone Nephrology Yesenia Clements CMA Patient Reminder 2nd Floor, Clinic [address] [place], [place] [phone] Social History Tobacco Use Types Packs/Day [...] Patient confirmed and understood. Yesenia Clements CMA ING MACHINE OPERATOR documented in this encounter Plan of Treatment Not on filedocumented as of this encounter Visit Diagnoses Not on filedocumented in this encounter Care Teams Group Fitness Manager Relationship Specialty Start Date End Date Momo Forbes PCP - General Family Practice 01/02/14 [facility] [address] [place] [address] Ingrid Santana, RN Registered Nurse Transplant 02/10/12 10/01/15 documented as of this encounter
--- OUTSIDE RECORDS SUMMARY | 2022-05-19 11:36 | XMS_ITS | Encounter Summary ---
:1950 Author Organization [place] Address [facility] [place] [address] Care Team Providers Name Role Phone Ingrid Santana RN Unavailable Momo Forbes Primary Care Provider Reason for Visit Reason Onset Date Comments Transplant 12/31/2014 Encounter Details Date Type Department Care Team Description 12/31/2014 Telephone [facility] Transplant Ankita Ordoñez Transplant Clinic [address] [place] [phone] Social History Tobacco Use Types [...] on filedocumented in this encounter Care Teams Professor Of Rhetoric Relationship Specialty Start Date End Date Momo Forbes PCP - General Family Practice 01/02/14 [facility] [address] [place] [address] Ingrid Santana, RN Registered Nurse Transplant 02/10/12 10/01/15 documented as of this encounter
--- OUTSIDE RECORDS SUMMARY | 2022-05-19 11:36 | XMS_ITS | Encounter Summary ---
:1950 Author Organization [place] Address [facility] [place] [address] Care Team Providers Name Role Phone Ingrid Santana RN Unavailable Momo Forbes Primary Care Provider Joseph Quintana MD Unavailable Encounter Details Date Type Department Care Team Description 11/07/2014 External Order Results The Transplant Ce nter Nurse, [facility] 2nd Floor, Clinic [address]A [address] [phone] Social History Tobacco Use Types Packs/Day Years [...] (11/05/2014 8:32 AM CDT) Analysis Performed At [facility] Time Signature Sodium 140 135 - [...] Estimated >60 >60 LABDE SCAN (if ml/min/1.7 Guatemalan) 3m2 (External) GFR Estimated 51 (L) >60 [...] filedocumented in this encounter Care Teams Production Analyst Relationship Specialty Start Date End Date Momo Forbes PCP - General Family Practice 01/02/14 [facility] [address] [place] [address] Ingrid Santana, RN Registered Nurse Transplant 02/10/12 10/01/15 Joseph Quintana, Assigned Nephrology 03/29/21 MD Provider [address] [place] [address] 1932 [place], [place] [phone] documented as of this encounter
--- OUTSIDE RECORDS SUMMARY | 2022-05-19 11:36 | XMS_ITS | Encounter Summary ---
:1950 Author Organization [place] Address [address] [place] [address]. [place] [address] Care Team Providers Name Role Phone Momo Forbes Primary Care Provider Reason for Visit Reason Onset Date Comments Transplant 04/20/2016 refill Encounter Details Date Type Department Care Team Description 04/20/2016 Refill [facility] Joseph Quintana, Transplant (refill) Transplant Clinic [address] [place] [phone] [place] [address] (Wo rk) Social History Tobacco [...] transplant documented in this encounter Care Teams Display Screen Fabricator Relationship Specialty Start Date End Date Momo Forbes PCP - General Family Practice 01/02/14 [facility] [address] [place] [address] documented as of this encounter
--- OUTSIDE RECORDS SUMMARY | 2022-05-19 11:36 | XMS_ITS | Encounter Summary ---
:1950 Author Organization [place] Address [address] [place] [address]. [place] [address] Care Team Providers Name Role Phone Momo Forbes Primary Care Provider Reason for Visit Reason Onset Date Comments Transplant 02/19/2016 refill Encounter Details Date Type Department Care Team Description 02/19/2016 Refill The Transplant Deysi Burns MD Transplant (refill) 2nd Floor, Clinic 2A [address] [place] [address] [facility] [place] [address] Social History Tobacco Use Types [...] documented in this encounter Care Teams Supervisor Tan Room Relationship Specialty Start Date End Date Momo Forbes PCP - General Family Practice 01/02/14 [facility] 1999 [place], [place] [phone] documented as of this encounter
--- OUTSIDE RECORDS SUMMARY | 2022-05-19 11:36 | XMS_ITS | Encounter Summary ---
:1950 Author Organization [place] Address [address] [place] [address]. [place] [address] Care Team Providers Name Role Phone Momo Forbes Primary Care Provider Reason for Visit Reason Onset Date Comments Transplant 02/06/2016 refill Encounter Details Date Type Department Care Team Description 02/06/2016 Refill [facility] Cristy Chen LPN T ransplant (refill) Transplant Clinic [address] [place] [address] [phone] Social History Tobacco Use Types Packs/Day [...] transplant documented in this encounter Care Teams Return Agent Airport Relationship Specialty Start Date End Date Momo Forbes PCP - General Family Practice 01/02/14 [facility] [address] [place] [address] documented as of this encounter
--- OUTSIDE RECORDS SUMMARY | 2022-05-19 11:36 | XMS_ITS | Encounter Summary ---
:1950 Author Organization [place] Address [address] [place] [address] Care Team Providers Name Role Phone Ingrid Santana RN Unavailable Momo Forbes Primary Care Provider Encounter Details Date Type Department Care Team Description 10/20/[address] [facility], Joseph [facility], [facility] jm [place] [address] [phone] [place] [address] 747 [place] [address] (Wo rk) Social History Tobacco [...] Tacrolimus Last 2030, [facility] Dose 11/04/14 [facility] Tacrolimus 7.7 5.0 - [facility] 15.0 ug/L [facility] Comment: Tacrolimus [...] Phon e Number [facility] [address] documented in this encounter Visit Diagnoses Not on filedocumented in this encounter Care Teams Rough Rounder Relationship Specialty Start Date End Date Momo Forbes PCP - General Family Practice 01/02/14 [facility] [address] [place] [address] Ingrid Santana, RN Registered Nurse Transplant 02/10/12 10/01/15 documented as of this encounter
--- OUTSIDE RECORDS SUMMARY | 2022-05-19 11:36 | XMS_ITS | Encounter Summary ---
:1950 Author Organization [place] Address [address] [place] [address] Care Team Providers Name Role Phone Ingrid Santana RN Unavailable Momo Forbes Primary Care Provider Encounter Details Date Type Department Care Team Description 12/20/2014 Orders Only [facility], [facility] [place], [facility] [address] [phone] [place] [address] 683 [place] [address] (Wo rk) Social History Tobacco [...] Tacrolimus Last 12/24/14 [facility] Dose 2130 [facility] Tacrolimus 9.5 5.0 - [facility] 15.0 ug/L [facility] Comment: Tacrolimus Reference Range Kidney Transplant [...] its perform ance characteristics determined by the [facility] [...] e Number [facility] [address] documented in this encounter Visit Diagnoses Not on filedocumented in this encounter Care Teams Supply Chain Business Analyst Relationship Specialty Start Date End Date Momo Forbes PCP - General Family Practice 01/02/14 [facility] [address] [place] [address] Ingrid Santana, RN Registered Nurse Transplant 02/10/12 10/01/15 documented as of this encounter
--- OUTSIDE RECORDS SUMMARY | 2022-05-19 11:36 | XMS_ITS | Encounter Summary ---
:1950 Author Organization [place] Address [facility]0 [facility] [place] [address] Care Team Providers Name Role Phone Leidy Momo He Primary Care Provider Reason for Visit Reason Onset Date Comments Transplant 03/30/2016 refill Encounter Details Date Type Department Care Team Description 03/30/2016 Refill The Transplant Deysi Burns MD Transplant (refill) 2nd Floor, Clinic [address]A [id number] [place] [address] [facility] [place] [address] Social History Tobacco Use Types [...] Date: 02/19/16 Quantity: 240 Thanks!! Janelle Jackson [facility] documented in this encounter Plan of Treatment Not on filedocumented as of this encounter Visit Diagnoses Diagnosis Kidney transplanted - Primary Kidney replaced by transplant documented in this encounter Care Teams Food Runner Relationship Specialty Start Date End Date Momo Forbes PCP - General Family Practice 01/02/[address] [address] documented as of this encounter
--- OUTSIDE RECORDS SUMMARY | 2022-05-19 11:36 | XMS_ITS | Encounter Summary ---
:1950 Author Organization [place] Address [facility], [facility]0 [facility] [place] [address] Care Team Providers Name Role Phone Momo Forbes Primary Care Provider Joseph Quintana MD Unavailable Encounter Details Date Type Department Care Team Description 08/18/2016 External Order Results [facility] Nurse, [facility] Trans[facility] Clinic [address] [place] [address] Social History Tobacco Use Types [...] 08/09/2016 12:21 PM Results for this RESULTS COOKING APPLIANCE REPAIR TECHNICIAN procedure are i n the results section. documented in this encounter Results (ABNORMAL) TXP External Lab Result (08/09/2016 12:21 PM COOKING APPLIANCE REPAIR TECHNICIAN) Analysis Performed At Patho logist Time [...] / / Volume Laterality 08/09/2016 12:21 PM COOKING APPLIANCE REPAIR TECHNICIAN Narrative [facility] - 08/18/2016 1:35 PM COOKING APPLIANCE REPAIR TECHNICIAN Verified by Jessica Major on 016. Patient Reported LABORATORY Performing Organization Address City/State/ZIP Code Phon e Number [facility] LABDE SCAN documented in this encounter Visit Diagnoses Not on filedocumented in this encounter Care Teams Trumpet Teacher Relationship Specialty Start Date End Date Momo Forbes PCP - General Family Practice 01/02/14 [facility] [address] [place], [place] [phone] Joseph Quintana, Assigned Nephrology 03/29/21 MD Provider [address] [place] [address] 353 [facility] 1932 [place], [place] [address] documented as of this encounter
--- OUTSIDE RECORDS SUMMARY | 2022-05-19 11:36 | XMS_ITS | Encounter Summary ---
:1950 Author Organization [place] Address [facility]0 [facility] [place] [address] Care Team Providers Name Role Phone Ingrid Santana RN Unavailable Momo Forbes Primary Care Provider Encounter Details Date Type Department Care Team Description 12/30/2014 Orders Only The Transplant Shiva Arias, RN -donor kidney 2nd Floor, Clinic 2A [facility] transplant recipient Tommy Guillermoteen [address] [facility] (Primary Dx) Building [address] [place] [address] [place] [address] Social History Tobacco Use Types [...] transplant documented in this encounter Care Teams Movie Writer Relationship Specialty Start Date End Date Momo Forbes PCP - General Family Practice 01/02/14 [facility] [address] [place] [phone] Ingrid Santana, RN Registered Nurse Transplant 02/10/12 10/01/15 documented as of this encounter
--- OUTSIDE RECORDS SUMMARY | 2022-05-19 11:36 | XMS_ITS | Encounter Summary ---
:1950 Author Organization [place] Address [facility] [place] [address] Care Team Providers Name Role Phone Ingrid Santana RN Unavailable Momo Forbes Primary Care Provider Reason for Visit Reason Onset Date Comments Refill Request 04/21/2015 crestor Encounter Details Date Type Department Care Team Description 04/21/2015 Refill [facility] [address] Refill Request Physicians Orestes Hernandez MD (crestor) Tommy [facility] Building [place] 4th Floor, Clinic 4B [address] [facility] [address] [phone] (Wo rk) [address] [phone] Social History Tobacco Use Types Packs/Day Years [...] # refills: 11 Last Office Visit with [facility] primary care provider: 05/14/14 CHOL 126 02/06/2014 HDL 35 02/06/2014 LDL 71 02/06/2014 TRIG 100 02/06/2014 CHOLHDLRATIO 3.6 02/06/2014 Gayathri Orta [facility] 7[address] [facility] [address] documented in this encounter Plan of Treatment Not on filedocumented as of this encounter Visit Diagnoses Diagnosis DM (diabetes mellitus), type 2 (H) - Ana ashley Type II or unspecified type diabetes aung litus without mention of complication, not stated as uncontrolled Other and unspecified hyperlipidemia documented in this encounter Care Teams Golf Ball Cover Treater Relationship Specialty Start Date End Date Momo Forbes PCP - General Family Practice 01/02/14 [facility] [address] [place] [address] Ingrid Santana, RN Registered Nurse Transplant 02/10/12 10/01/15 documented as of this encounter
--- OUTSIDE RECORDS SUMMARY | 2022-05-19 11:36 | XMS_ITS | Encounter Summary ---
:1950 Author Organization [place] Address [address] [place] [address] Care Team Providers Name Role Phone Momo Forbes A Primary Care Provider Encounter Details Date Type Department Care Team Description 07/22/2016 Orders Only [facility] Mariano, Joseph Perdomo isael, [facility] jm [place] 500 [facility] 717 [place], [place] [phone] [place] [address] [place] [address] (Wo rk) Social History Tobacco [...] Res ults for this MASS SPECTROMETRY PM VISITOR SERVICES ASSISTANT procedure are in the results section. documented in this encounter Results (ABNORMAL) Tacrolimus level (08/09/2016 12:15 PM VISITOR SERVICES ASSISTANT) [facility] Method Time Signature Tacrolimus Last 08/08/[address] Tacrolimus 3.8 (L) 5.0 - [facility] Level 15.0 ug/L [facility] Comment: Tacrolimus [...] / Volume Laterality 08/09/2016 12:15 08/11/2016 PM VISITOR SERVICES ASSISTANT 10:15 AM VISITOR SERVICES ASSISTANT Deysi Alicea MD LAB - BLOOD ORDERABLES Performing Organization Address City/State/ZIP Code Phon e Number [facility] [address] documented in this encounter Visit Diagnoses Not on filedocumented in this encounter Care Teams Family Sociologist Relationship Specialty Start Date End Date Momo Forbes PCP - General Family Practice 01/02/14 [facility] [address] [place] [address] documented as of this encounter
--- OUTSIDE RECORDS SUMMARY | 2022-05-19 11:36 | XMS_ITS | Encounter Summary ---
:1950 Author Organization [place] Address [facility] [place] [address] Care Team Providers Name Role Phone Ingrid Santana RN Unavailable Momo Forbes Primary Care Provider Reason for Visit Reason Onset Date Comments Refill Request 09/06/2014 Dok Plus Encounter Details Date Type Department Care Team Description 09/06/2014 Refill The Transplant Deysi Burns, Refill Request (Dok 2nd Floor, Clinic 2A MD Plus) Tommy Wilburn [facility] Building [address] [place] [id number] [place] [address] [place] [address] Social History Tobacco Use Types [...] Fill Date: 02/08/14 Quantity: 100 Michael Jackson [facility] [phone] ERGARTNERS HELPER documented in this encounter Plan of Treatment Not on filedocumented as of this encounter Visit Diagnoses Diagnosis S/P kidney transplant - Primary Kidney replaced by transplant documented in this encounter Care Teams Slab Stripper Relationship Specialty Start Date End Date Momo Forbes PCP - General Family Practice 01/02/14 [place] [phone] Ingrid Santana, RN Registered Nurse Transplant 02/10/12 10/01/15 documented as of this encounter
--- OUTSIDE RECORDS SUMMARY | 2022-05-19 11:36 | XMS_ITS | Encounter Summary ---
:1950 Author Organization [place] Address [facility] [place] [address] Care Team Providers Name Role Phone Ingrid Santana RN Unavailable Momo Forbes Primary Care Provider Reason for Visit Reason Onset Date Comments Refill Request 02/10/2015 mycophenolate, smz/t mp Encounter Details Date Type Department Care Team Description 02/10/2015 Refill The Transplant Deysi Burns, Refill Request 2nd Floor, Clinic 2A (mycophenolate, [facility] smz/tmp) Building [address] [place] [address] [place] [address] Social History Tobacco Use Types [...] Fill Date: 01/09/15 Last Fill Quantity: 240 [id number] Last Fill Date: 01/09/15 Last Fill Quantity: 31 Gayathri Orta [facility] 711 [facility] [address] documented in this encounter Plan of Treatment Not on filedocumented as of this encounter Visit Diagnoses Diagnosis S/P kidney transplant - Primary Kidney replaced by transplant documented in this encounter Care Teams Professional Skater Relationship Specialty Start Date End Date Momo Forbes PCP - General Family Practice 01/02/[address] [address] Ingrid Santana, RN Registered Nurse Transplant 02/10/12 10/01/15 documented as of this encounter
--- OUTSIDE RECORDS SUMMARY | 2022-05-19 11:36 | XMS_ITS | Encounter Summary ---
:1950 Author Organization [place] Address [address] [place] [address]. [place] [address] Care Team Providers Name Role Phone Ingrid Santana RN Unavailable Momo Forbes Primary Care Provider Encounter Details Date Type Department Care Team Description 10/18/2014 External Order Results The Transplant Ce ntjakob Nurse, [facility] 2nd Floor, Clinic [address]A [address] [address] Social History Tobacco Use Types [...] 8:15 AM Results f or this RESULTS INFIRMARY ATTENDANT procedure are i n the results section. documented in this encounter Results (ABNORMAL) TXP External Lab Result (10/17/2014 8:15 AM INFIRMARY ATTENDANT) Analysis Performed At Patho logist Time Signature [...] 56 (L) >60 LABDE SCAN (if ml/min/1.7 Citizen [place]) 3m2 (External) GFR Estimated 46 (L) >60 [...] / / Volume Laterality 10/17/2014 8:15 AM INFIRMARY ATTENDANT Narrative JESSICA PFT - 10/18/2014 8:50 AM INFIRMARY ATTENDANT Verified by Maribel Plunkett on 10/18/19 15. Patient Reported LABORATORY Performing Organization Address City/State/ZIP Code Phon e Number [facility] LABDE SCAN documented in this encounter Visit Diagnoses Not on filedocumented in this encounter Care Teams Bench Mechanic Relationship Specialty Start Date End Date Momo Forbes PCP - General Family Practice 01/02/14 [facility] [address] [place] [address] Ingrid Santana, RN Registered Nurse Transplant 02/10/12 10/01/15 documented as of this encounter
--- OUTSIDE RECORDS SUMMARY | 2022-05-19 11:37 | XMS_ITS | Encounter Summary ---
:1950 Author Organization [place] Address [address] [place] [address] Care Team Providers Name Role Phone Ingrid Santana RN Unavailable Momo Forbes Primary Care Provider Reason for Visit Reason Onset Date Comments Medication Question 07/26/2014 Encounter Details Date Type Department Care Team Description 07/26/2014 Telephone PHARMACY Duncan, Fina, [facility] Medication Question [address] [facility] [place] [address] 710 [facility] [place] [address] Social History Tobacco Use Types [...] very well healthy and happy Beny Staton [facility] Specialty Pharmacist [phone] POOER documented in this encounter Plan of Treatment Not on filedocumented as of this encounter Visit Diagnoses Not on filedocumented in this encounter Care Teams Ground Operations Superintendent Relationship Specialty Start Date End Date Momo Forbes PCP - General Family Practice 01/02/14 [facility] [address] [place] [address] Ingrid Santana, RN Registered Nurse Transplant 02/10/12 10/01/15 documented as of this encounter
--- OUTSIDE RECORDS SUMMARY | 2022-05-19 11:37 | XMS_ITS | Encounter Summary ---
:1950 Author Organization [place] Address [facility] [place] [address] Care Team Providers Name Role Phone Ingrid Santana RN Unavailable Momo Forbes Primary Care Provider Joseph Quintana MD Unavailable Encounter Details Date Type Department Care Team Description 06/08/2014 External Order Results The Transplant Ce nter Nurse, [facility] 2nd Floor, Clinic 2A [address] [address] Social History Tobacco Use Types [...] External Lab Result (06/05/2014 8:30 AM CDT) [facility] Method Time Signature Sodium (External) 138 [...] on filedocumented in this encounter Care Teams Copywriting Intern Relationship Specialty Start Date End Date Momo Forbes PCP - General Family Practice 01/02/14 [facility] [address] [place] [address] Ingrid Santana, RN Registered Nurse Transplant 02/10/12 10/01/15 Joseph Quintana, Assigned Nephrology 03/29/21 MD Provider [address] [place] [address] 1932 [place] [address] documented as of this encounter
--- OUTSIDE RECORDS SUMMARY | 2022-05-19 11:37 | XMS_ITS | Encounter Summary ---
:1950 Author Organization [place] Address [facility] [place] [address] Care Team Providers Name Role Phone Ingrid Santana RN Unavailable Momo Forbes Primary Care Provider Joseph Quintana MD Unavailable Encounter Details Date Type Department Care Team Description 05/27/2014 External Order Results The Transplant Ce nter Nurse, [facility] 2nd Floor, Clinic 2A [address] [phone] Social History Tobacco Use Types Packs/Day Years [...] (05/24/2014 8:11 AM CDT) Analysis Performed At [facility] Time Signature Sodium 142 135 - [...] Estimated >60 >60 LABDE SCAN (if ml/min/1.7 Dutch) 3m2 (External) GFR Estimated 52 (L) >60 [...] on filedocumented in this encounter Care Teams Superior Court Justice Relationship Specialty Start Date End Date Momo Forbes PCP - General Family Practice 01/02/14 [facility] [address] [place] [address] Ingrid Santana, RN Registered Nurse Transplant 02/10/12 10/01/15 Joseph Quintana, Assigned Nephrology 03/29/21 MD Provider [address] [place] [address] 353 [facility] 1932 [place] [address] documented as of this encounter
--- OUTSIDE RECORDS SUMMARY | 2022-05-19 11:37 | XMS_ITS | Encounter Summary ---
:1950 Author Organization [place] Address [address] [place] [address]. [place] [address] Care Team Providers Name Role Phone Ingrid Santana RN Unavailable Momo Forbes Primary Care Provider Encounter Details Date Type Department Care Team Description 08/03/2014 Abstract The Transplant [facility] 2nd Floor, Clinic 2A [address] [phone] Social History Tobacco Use [...] on filedocumented in this encounter Care Teams Rejector Relationship Specialty Start Date End Date Momo Forbes PCP - General Family Practice 01/02/14 [facility] [address] [place] [address] Ingrid Santana RN Registered Nurse Transplant 02/10/12 10/01/15 documented as of this encounter
--- OUTSIDE RECORDS SUMMARY | 2022-05-19 11:37 | XMS_ITS | Encounter Summary ---
:1950 Author Organization [place] Address [facility] [place] [address] Care Team Providers Name Role Phone Ingrid Santana RN Unavailable Momo Forbes Primary Care Provider Joseph Quintana MD Unavailable Encounter Details Date Type Department Care Team Description 07/31/2014 External Order Results The Transplant Ce nter Nurse, [facility] 2nd Floor, Clinic [address]A [address] [phone] Social History Tobacco Use Types Packs/Day Years [...] 8:25 AM Results f or this RESULTS WEAPONS SPECIALIST procedure are i n the results section. documented in this encounter Results (ABNORMAL) TXP External Lab Result (07/29/2014 8:25 AM WEAPONS SPECIALIST) [facility] Method Time Signature Sodium (External) 138 [...] / / Volume Laterality 07/29/2014 8:25 AM WEAPONS SPECIALIST Narrative [facility]ZE PFT - 07/31/2014 2:47 PM WEAPONS SPECIALIST Verified by Nazia Duncan on 07/31/2014. Verified by Freddy Mehta on 07/31. Patient Reported LABORATORY Performing Organization Address City/State/ZIP Code Phon e Number [facility] PFT LABDE SCAN documented in this encounter Visit Diagnoses Not on filedocumented in this encounter Care Teams News Videographer Relationship Specialty Start Date End Date Momo Forbes PCP - General Family Practice 01/02/14 [facility] [address] [place] [address] Ingrid Santana, RN Registered Nurse Transplant 02/10/12 10/01/15 Joseph Quintana, Assigned Nephrology 03/29/21 MD Provider 7 [facility] 353 [facility] [address] [place] [address] documented as of this encounter
--- OUTSIDE RECORDS SUMMARY | 2022-05-19 11:37 | XMS_ITS | Encounter Summary ---
:1950 Author Organization [place] Address [facility] [place] [address] Care Team Providers Name Role Phone Ingrid Santana RN Unavailable Momo Forbes Primary Care Provider Encounter Details Date Type Department Care Team Description 06/07/2014 External Order Results The Transplant Ce ntjakob Nurse, [facility] 2nd Floor, Clinic 2A [address] [phone] Social History Tobacco Use Types [...] External Lab Result (06/05/2014 8:30 AM CDT) [facility] Method Time Signature Sodium (External) 138 [...] on filedocumented in this encounter Care Teams Cane Flume Watchman Relationship Specialty Start Date End Date Momo Forbes PCP - General Family Practice 01/02/14 [facility] [address] [place] [phone] Ingrid Santana, RN Registered Nurse Transplant 02/10/12 10/01/15 documented as of this encounter
--- OUTSIDE RECORDS SUMMARY | 2022-05-19 11:37 | XMS_ITS | Encounter Summary ---
:1950 Author Organization [place] Address [facility] [address] Care Team Providers Name Role Phone Ingrid Santana RN Unavailable Momo Forbes Primary Care Provider Joseph Quintana MD Unavailable Encounter Details Date Type Department Care Team Description 08/28/2014 External Order Results The Transplant Ce nter Nurse, [facility] 2nd Floor, Clinic 2A [address] [phone] Social History Tobacco Use Types [...] 08/26/2014 10:25 AM Results for this RESULTS LEAD SLOT TECHNICIAN procedure are i n the results section. documented in this encounter Results (ABNORMAL) TXP External Lab Result (08/26/2014 10:25 AM LEAD SLOT TECHNICIAN) [facility] Time Signature Sodium 139 135 - 145 [...] 58 (L) >60 LABDE SCAN (if ml/min/1.7 Italian) 3m2 (External) GFR Estimated 48 (L) >60 [...] / / Volume Laterality 08/26/2014 10:25 AM LEAD SLOT TECHNICIAN Narrative JESSICA PFT - 08/28/2014 4:34 PM LEAD SLOT TECHNICIAN Verified by Freddy Mehta on 08/28. Patient Reported LABORATORY Performing Organization Address City/State/ZIP Code Phon e Number [facility]ZE PFT LABDE SCAN documented in this encounter Visit Diagnoses Not on filedocumented in this encounter Care Teams Market News Reporter Relationship Specialty Start Date End Date Momo Forbes PCP - General Family Practice 01/02/14 [facility] [address] [place] [address] Ingrid Santana, RN Registered Nurse Transplant 02/10/12 10/01/15 Joseph Quintana, Assigned Nephrology 03/29/21 MD Provider [address] [place] [address] [place] [phone] documented as of this encounter
--- OUTSIDE RECORDS SUMMARY | 2022-05-19 11:37 | XMS_ITS | Encounter Summary ---
:1950 Author Organization [place] Address [facility] [place] [address] Care Team Providers Name Role Phone Ingrid Santana RN Unavailable Momo Forbes Primary Care Provider Encounter Details Date Type Department Care Team Description 05/20/2014 External Order Results The Transplant Ce ntjakob Nurse, [facility] 2nd Floor, Clinic [address]A [address] [phone] Social History Tobacco Use Types [...] [place]) 3m2 (External) GFR Estimated 46 (L) >60 [...] filedocumented in this encounter Care Teams Waste Minimization Technician Relationship Specialty Start Date End Date Momo Forbes PCP - General Family Practice 01/02/14 [facility] [address] [place] [address] Ingrid Santana, RN Registered Nurse Transplant 02/10/12 10/01/15 documented as of this encounter
--- OUTSIDE RECORDS SUMMARY | 2022-05-19 11:37 | XMS_ITS | Encounter Summary ---
:1950 Author Organization [place] Address [facility] [place] [address] Care Team Providers Name Role Phone Ingrid Santana RN Unavailable Momo Forbes Primary Care Provider Encounter Details Date Type Department Care Team Description 06/10/2014 External Order Results The Transplant Ce ntjakob Nurse, [facility] 2nd Floor, Clinic 2A [address] [phone] Social History Tobacco Use Types [...] 60 (L) >60 LABDE SCAN (if ml/min/1.7 Maltese) 3m2 (External) GFR Estimated 49 (L) >60 [...] on filedocumented in this encounter Care Teams Centrifuge Separator Tender Relationship Specialty Start Date End Date Momo Forbes PCP - General Family Practice 01/02/14 [facility] [address] [place] [phone] Ingrid Santana, RN Registered Nurse Transplant 02/10/12 10/01/15 documented as of this encounter
--- OUTSIDE RECORDS SUMMARY | 2022-05-19 11:37 | XMS_ITS | Encounter Summary ---
:1950 Author Organization [place] Address [address] [place] [address] Care Team Providers Name Role Phone Ingrid Santana RN Unavailable Momo Forbes Primary Care Provider Encounter Details Date Type Department Care Team Description 05/22/[address] [facility], [facility], [facility] [place] [address] [phone] [place] [address] 017 [place] [address] (Wo rk) Social History Tobacco [...] Results Tacrolimus level (06/17/2014 8:05 AM CDT) [facility] Method Time Signature Tacrolimus Last 06/16/14 [facility] Dose 2000 [facility] Tacrolimus 6.5 5.0 - [facility] Level 15.0 ug/L [place] [...] 8:05 AM 4 CDT 11:38 AM CDT Biis Rabago MD LAB - BLOOD ORDERABLES Performing Organization Address City/State/ZIP Code Phon e Number [facility] 500 [place], [place] [phone] [place] [address] [facility] Tacrolimus level (06/10/2014 7:52 AM CDT) [facility] gist Method Time Signature Tacrolimus Last 1999 [facility] Dose 06/09/14 [facility] Tacrolimus 7.9 [...] Phon e Number [facility] 500 [place], [place] [phone] [place] [address] [facility] Tacrolimus level (06/05/2014 8:28 AM CDT) [facility] gist Method Time Signature Tacrolimus Last 1999 [facility] Dose 06/04/14 [facility] Tacrolimus 7.9 [...] LAB - BLOOD ORDERABLES Performing Organization Address City/[facility]/ZIP Code Phon e Number [facility] [address] LABS Tacrolimus level (05/24/2014 8:05 AM CDT) [facility] gist Method Time Signature Tacrolimus 05/23/14 [facility] Last Dose 20:00 [facility] Tacrolimus Test 5.0 - [facility] Level canceled - 15.0 ug/L [place] Lab order CAMPUS LABS entry error Specimen Anatomical Collection Method Collection Time Receive d Time (Source) Location / / Volume Laterality 05/24/2014 8:05 AM 4 2:49 CDT PM CDT Deysi Alicea MD LAB - BLOOD ORDERABLES Performing Organization Address City/State/ZIP Code Phon e Number [facility] [address] LABS Tacrolimus level (05/24/2014 8:05 AM CDT) [facility] gist Method Time Signature Tacrolimus Last 05/23/14 [facility] Dose 20:00 [facility] Tacrolimus 5.8 5.0 - [facility] Level 15.0 ug/L [place] [...] Phon e Number [facility] 500 [place], [place] [phone] [place] [address] LABS documented in this encounter Visit Diagnoses Not on filedocumented in this encounter Care Teams Environmental Analyst Relationship Specialty Start Date End Date Momo Forbes PCP - General Family Practice 01/02/14 [facility] 1999 [place] [address] Ingrid Santana, RN Registered Nurse Transplant 02/10/12 10/01/15 documented as of this encounter
--- OUTSIDE RECORDS SUMMARY | 2022-05-19 11:37 | XMS_ITS | Encounter Summary ---
:1950 Author Organization [place] Address [facility] [place] [address] Care Team Providers Name Role Phone Ingrid Santana RN Unavailable Momo Forbes Primary Care Provider Encounter Details Date Type Department Care Team Description 06/17/2014 External Order Results The Transplant Ce ntjakob Nurse, [facility] 2nd Floor, Clinic [address] [phone] Social History Tobacco Use [...] 57 (L) >60 LABDE SCAN (if ml/min/1.7 Austrian) 3m2 (External) GFR Estimated 47 (L) >60 [...] on filedocumented in this encounter Care Teams Color Shop Helper Relationship Specialty Start Date End Date Momo Forbes PCP - General Family Practice 01/02/14 [facility] [address] [place] [address] Ingrid Santana, RN Registered Nurse Transplant 02/10/12 10/01/15 documented as of this encounter
--- OUTSIDE RECORDS SUMMARY | 2022-05-19 11:37 | XMS_ITS | Encounter Summary ---
:1950 Author Organization [place] Address [facility]ly [facility], [facility] [place] [address] Care Team Providers Name Role Phone Ingrid Santana RN Unavailable Momo Forbes Primary Care Provider Reason for Visit Reason Comments Heart Problem 6 week F/U Encounter Details Date Type Department Care Team Description 05/14/2014 [facility] [place] [facility] Kei Hernandez, shanon carey (Primary Heart MD Dx) Tommy Wilburn [facility] Building [place] 4th Floor, Clinic [address] [address] [phone] [place], [place] (Work) [phone] [phone] Social History Tobacco Use Types Packs/Day Years [...] questions or concerns. 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
--- OUTSIDE RECORDS SUMMARY | 2022-05-19 11:37 | XMS_ITS | Encounter Summary ---
:1950 Author Organization [place] Address [facility] [place] [address] Care Team Providers Name Role Phone Ingrid Santana RN Unavailable Momo Forbes Primary Care Provider Joseph Quintana MD Unavailable Encounter Details Date Type Department Care Team Description 07/03/2014 External Order Results The Transplant Ce nter Nurse, [facility] 2nd Floor, Clinic [address] [phone] Social History Tobacco Use Types Packs/Day Years [...] 8:27 AM Results f or this RESULTS DIRECTOR OF COMMUNITY EDUCATION procedure are i n the results section. documented in this encounter Results (ABNORMAL) TXP External Lab Result (07/01/2014 8:27 AM DIRECTOR OF COMMUNITY EDUCATION) [facility] Sodium 140 135 [...] 57 (L) >60 LABDE SCAN (if ml/min/1.7 Zambian) 3m2 (External) GFR Estimated 47 (L) >60 [...] / / Volume Laterality 07/01/2014 8:27 AM DIRECTOR OF COMMUNITY EDUCATION Narrative JESSICA PFT - 07/03/2014 2:18 PM DIRECTOR OF COMMUNITY EDUCATION Verified by Xiomara Bello on 07/03/20 14. Patient Reported LABORATORY Performing Organization Address City/State/ZIP Code Phon e Number [facility] LABDE SCAN documented in this encounter Visit Diagnoses Not on filedocumented in this encounter Care Teams Post Hole Digging Machine Operator Relationship Specialty Start Date End Date Momo Forbes PCP - General Family Practice 01/02/14 [facility] [address] [place] [address] Ingrid Santana, RN Registered Nurse Transplant 02/10/12 10/01/15 Joseph Quintana, Assigned Nephrology 03/29/21 MD Provider [address] [place] [address] [address] [place], [place] [id number] documented as of this encounter
--- OUTSIDE RECORDS SUMMARY | 2022-05-19 11:37 | XMS_ITS | Encounter Summary ---
:1950 Author Organization [place] Address [facility] [place] [address] Care Team Providers Name Role Phone Ingrid Santana RN Unavailable Momo Forbes Primary Care Provider Joseph Quintana MD Unavailable Encounter Details Date Type Department Care Team Description 07/25/2014 External Order Results The Transplant Ce nter Nurse, [facility] 2nd Floor, Clinic [address]A [address] [phone] Social History Tobacco Use Types Packs/Day Years [...] 8:22 AM Results f or this RESULTS LEATHER GRAINER procedure are i n the results section. documented in this encounter Results (ABNORMAL) TXP External Lab Result (07/22/2014 8:22 AM LEATHER GRAINER) [facility] Time [...] >60 LABDE SCAN (if ml/min/1.7 Citizen Of [place]) 3m2 (External) GFR Estimated 43 (L) >60 [...] / / Volume Laterality 07/22/2014 8:22 AM LEATHER GRAINER Narrative JESSICA PFT - 07/25/2014 6:19 AM LEATHER GRAINER Verified by Janee Alexis on 07/25/2014 . Patient Reported LABORATORY Performing Organization Address City/State/ZIP Code Phon e Number [facility] LABDE SCAN documented in this encounter Visit Diagnoses Not on filedocumented in this encounter Care Teams Prefinish Operator Relationship Specialty Start Date End Date Momo Forbes PCP - General Family Practice 01/02/14 [facility] [address] [place] [address] Ingrid Santana, RN Registered Nurse Transplant 02/10/12 10/01/15 Joseph Quintana, Assigned Nephrology 03/29/21 MD Provider [address] [place] [address] 1932 [place] [address] documented as of this encounter
--- OUTSIDE RECORDS SUMMARY | 2022-05-19 11:37 | XMS_ITS | Encounter Summary ---
:1950 Author Organization [place] Address [facility] [address] Care Team Providers Name Role Phone Ingrid Santana RN Unavailable Momo Forbes Primary Care Provider Joseph Quintana MD Unavailable Encounter Details Date Type Department Care Team Description 08/06/2014 External Order Results The Transplant Ce nter Nurse, [facility] 2nd Floor, Clinic [address] [phone] Social History Tobacco Use Types Packs/Day Years [...] 8:39 AM Results f or this RESULTS SCREW MACHINE REPAIRER procedure are i n the results section. documented in this encounter Results (ABNORMAL) TXP External Lab Result (08/05/2014 8:39 AM SCREW MACHINE REPAIRER) [facility] Time Signature Sodium 137 135 - [...] 55 (L) >60 LABDE SCAN (if ml/min/1.7 Djiboutian) 3m2 (External) GFR Estimated 45 (L) >60 [...] / / Volume Laterality 08/05/2014 8:39 AM SCREW MACHINE REPAIRER Narrative ZACHERYTYLER PFT - 08/06/2014 7:40 AM SCREW MACHINE REPAIRER Verified by Mary Whitehead on 08/06/2014. Patient Reported LABORATORY Performing Organization Address City/State/ZIP Code Phon e Number [facility] LABDE SCAN documented in this encounter Visit Diagnoses Not on filedocumented in this encounter Care Teams Land Clearer Relationship Specialty Start Date End Date Momo Forbes PCP - General Family Practice 01/02/14 [facility] [address] [place] [address] Ingrid Santana, RN Registered Nurse Transplant 02/10/12 10/01/15 Joseph Quintana, Assigned Nephrology 03/29/21 MD Provider [address] [place] [address] 1932 [place], [place] [id number] documented as of this encounter
--- OUTSIDE RECORDS SUMMARY | 2022-05-19 11:37 | XMS_ITS | Encounter Summary ---
:1950 Author Organization [place] Address [facility]0 [facility] [place] [address] Care Team Providers Name Role Phone Ingrid Santana RN Unavailable Momo Forbes Primary Care Provider Joseph Quintana MD Unavailable Encounter Details Date Type Department Care Team Description 05/16/2014 External Order Results The Transplant Ce nter Nurse, [facility] 2nd Floor, Clinic [address]A [address] [phone] Social History Tobacco Use Types Packs/Day Years [...] (05/15/2014 8:16 AM CDT) Analysis Performed At [facility] Time Signature Sodium 141 135 - 145 [...] Estimated >60 >60 LABDE SCAN (if ml/min/1.7 Kosovan) 3m2 (External) GFR Estimated 52 (L) >60 [...] filedocumented in this encounter Care Teams Manager Category Relationship Specialty Start Date End Date Momo Forbes PCP - General Family Practice 01/02/14 [facility] [address] [place] [address] Ingrid Santana, RN Registered Nurse Transplant 02/10/12 10/01/15 Joseph Quintana, Assigned Nephrology 03/29/21 MD Provider [address] [place] [address] 353 [facility] 1932 [place] [address] documented as of this encounter
--- OUTSIDE RECORDS SUMMARY | 2022-05-19 11:37 | XMS_ITS | Encounter Summary ---
:1950 Author Organization [place] Address [address] [place] [address] Care Team Providers Name Role Phone Ingrid Santana RN Unavailable Momo Forbes Primary Care Provider Encounter Details Date Type Department Care Team Description 07/22/2014 Orders Only [facility], [facility], [facility] [address] [phone] [place] [address] 811 [place] [address] (Wo rk) Social History Tobacco [...] AM Resul ts for this SINGLE ANTIGEN DISTRIBUTOR SALES CONSULTANT procedure are in the results section. HLA LUKASZ CLASS I Routine 07/29/2014 8:20 AM Result s for this SINGLE ANTIGEN DISTRIBUTOR SALES CONSULTANT procedure are in the results section. TACROLIMUS BY TANDEM Routine 07/29/2014 8:20 AM R esults for this MASS SPECTROMETRY DISTRIBUTOR SALES CONSULTANT procedure are in the results section. TACROLIMUS BY TANDEM Routine 07/22/2014 8:20 AM R esults for this MASS SPECTROMETRY DISTRIBUTOR SALES CONSULTANT procedure are in the results section. documented in this encounter Results HLA Lukasz Class II Single Antigen (07/29/2014 8:20 AM DISTRIBUTOR SALES CONSULTANT) [facility] [employer] Method Time Signature SA2 Test SA HI [...] Volume Laterality 07/29/2014 8:20 AM 4 3:26 DISTRIBUTOR SALES CONSULTANT PM DISTRIBUTOR SALES CONSULTANT Deysi Alicea MD LAB - IMMUNOLOGY ORDERABLES Performing Organization Address City/State/ZIP Code Phon e Number [facility] Immunology/Histocompatabil [place], [place] [address] [facility] [address], Room 3-580 HISTOTRAC HLA Lukasz Class I Single Antigen (07/29/2014 8:20 AM DISTRIBUTOR SALES CONSULTANT) [facility] Time Signature SA1 Test SA HI [...] Volume Laterality 07/29/2014 8:20 AM 4 3:26 DISTRIBUTOR SALES CONSULTANT PM DISTRIBUTOR SALES CONSULTANT Deysi Alicea MD LAB - IMMUNOLOGY ORDERABLES Performing Organization Address City/State/ZIP Code Phon e Number [facility] Immunology/Histocompatabil [place] [id number] 55 ithe [facility] [address] Building, Room 3-580 HISTOTRAC Tacrolimus level (07/29/2014 8:20 AM DISTRIBUTOR SALES CONSULTANT) [facility] gist Method Time Signature Tacrolimus Last 1999 [facility] Dose 07/28/14 [facility] Tacrolimus 10.5 5.0 - [facility] Level 15.0 ug/L [facility] [...] / Volume Laterality 07/29/2014 8:20 AM 4 DISTRIBUTOR SALES CONSULTANT 11:17 AM DISTRIBUTOR SALES CONSULTANT Deysi Alicea MD LAB - BLOOD ORDERABLES Performing Organization Address City/State/ZIP Code Phon e Number [facility] 500 [place], [place] [phone] [place] [address] [facility] Tacrolimus level (07/22/2014 8:20 AM DISTRIBUTOR SALES CONSULTANT) [facility] gist Method Time Signature Tacrolimus Last 1929 [facility] Dose 07/21/14 [facility] Tacrolimus 10.8 5.0 - [facility] Level 15.0 ug/L [facility] [...] / Volume Laterality 07/22/2014 8:20 AM 4 DISTRIBUTOR SALES CONSULTANT 11:45 AM DISTRIBUTOR SALES CONSULTANT Deysi Alicea MD LAB - BLOOD ORDERABLES Performing Organization Address City/State/ZIP Code Phon e Number [facility] 500 [place], [place] [phone] [place] [address] LABS documented in this encounter Visit Diagnoses Not on filedocumented in this encounter Care Teams Health Practice Manager Relationship Specialty Start Date End Date Momo Forbes PCP - General Family Practice 01/02/14 [facility] [address] [place] [address] Ingrid Santana, RN Registered Nurse Transplant 02/10/12 10/01/15 documented as of this encounter
--- OUTSIDE RECORDS SUMMARY | 2022-05-19 11:37 | XMS_ITS | Encounter Summary ---
:1950 Author Organization [place] Address [address] [place] [address]. [place] [address] Care Team Providers Name Role Phone Ingrid Santana RN Unavailable Momo Forbes Primary Care Provider Encounter Details Date Type Department Care Team Description 05/27/2014 Orders Only Nephrology Shiva Kahn RN -donor kidney 2nd Floor, Clinic 2A [facility] transplant recipient Tommy Mimateen [address] [place] [address] [place] [phone] Social History Tobacco Use Types Packs/Day Years [...] transplant documented in this encounter Care Teams Petrographer Relationship Specialty Start Date End Date Momo Forbes PCP - General Family Practice 01/02/14 [facility] [address] [place] [address] Ingrid Santana RN Registered Nurse Transplant 02/10/12 10/01/15 documented as of this encounter
--- OUTSIDE RECORDS SUMMARY | 2022-05-19 11:37 | XMS_ITS | Encounter Summary ---
:1950 Author Organization [place] Address [facility]0 [facility] [place] [address] Care Team Providers Name Role Phone Ingrid Santana RN Unavailable Momo Forbes Primary Care Provider Joseph Quintana MD Unavailable Encounter Details Date Type Department Care Team Description 06/24/2014 External Order Results The Transplant Ce nter Nurse, [facility] 2nd Floor, Clinic [address]A [address] [phone] Social History Tobacco Use Types Packs/Day Years [...] 8:37 AM Results f or this RESULTS TRAFFIC LINE PAINTER procedure are i n the results section. documented in this encounter Results (ABNORMAL) TXP External Lab Result (06/24/2014 8:37 AM TRAFFIC LINE PAINTER) [facility] Time [facility] Sodium 139 135 - [...] 54 (L) >60 LABDE SCAN (if ml/min/1.7 Australian) 3m2 (External) GFR Estimated 44 (L) >60 [...] / / Volume Laterality 06/24/2014 8:37 AM TRAFFIC LINE PAINTER Narrative JESSICA PFT - 06/24/2014 2:52 PM TRAFFIC LINE PAINTER Verified by Sofie Verdin on 4. Patient Reported LABORATORY Performing Organization Address City/State/ZIP Code Phon e Number [facility] LABDE SCAN documented in this encounter Visit Diagnoses Not on filedocumented in this encounter Care Teams Stock Dealer Relationship Specialty Start Date End Date Momo Forbes PCP - General Family Practice 01/02/14 [facility] [address] [place] [address] Ingrid Santana, RN Registered Nurse Transplant 02/10/12 10/01/15 Joseph Quintana, Assigned Nephrology 03/29/21 MD Provider [address] [place] [address] 1932 [place], [place] [phone] documented as of this encounter
--- OUTSIDE RECORDS SUMMARY | 2022-05-19 11:37 | XMS_ITS | Encounter Summary ---
:1950 Author Organization [place] Address [address] [place] [address] Care Team Providers Name Role Phone Ingrid Santana RN Unavailable Momo Forbes Primary Care Provider Encounter Details Date Type Department Care Team Description 06/22/2014 Orders Only [facility], [facility], [facility] [place] [address] [phone] [place] [address] 820 [place] [address] (Wo rk) Social History Tobacco [...] AM R esults for this MASS SPECTROMETRY BORDER GUARD procedure are in the results section. TACROLIMUS BY TANDEM Routine 07/08/2014 8:15 AM R esults for this MASS SPECTROMETRY BORDER GUARD procedure are in the results section. TACROLIMUS BY TANDEM Routine 07/01/2014 8:25 AM R esults for this MASS SPECTROMETRY BORDER GUARD procedure are in the results section. TACROLIMUS BY TANDEM Routine 06/24/2014 8:30 AM R esults for this MASS SPECTROMETRY BORDER GUARD procedure are in the results section. documented in this encounter Results Tacrolimus level (07/15/2014 8:25 AM BORDER GUARD) [facility] gist Method Time Signature Tacrolimus Last 07/14/14 [facility] Dose 2000 [facility] Tacrolimus 8.1 5.0 - [facility] Level 15.0 ug/L [facility] Comment: Tacrolimus Reference Range Kidney Transplant [...] / Volume Laterality 07/15/2014 8:25 AM 4 BORDER GUARD 10:56 AM BORDER GUARD Deysi Alicea MD LAB - BLOOD ORDERABLES Performing Organization Address City/State/ZIP Code Phon e Number [facility] 500 [place] [address] [facility] Tacrolimus level (07/08/2014 8:15 AM BORDER GUARD) [facility] gist Method Time Signature Tacrolimus Last 1999 [facility] Dose 07/07/14 [facility] Tacrolimus 8.6 5.0 - [facility] Level 15.0 ug/L [facility] Comment: Tacrolimus Reference Range Kidney Transplant [...] / Volume Laterality 07/08/2014 8:15 AM 4 BORDER GUARD 11:03 AM BORDER GUARD Deysi Alicea MD LAB - BLOOD ORDERABLES Performing Organization Address City/State/ZIP Code Phon e Number [facility] [address] [place] [address] [facility] Tacrolimus level (07/01/2014 8:25 AM BORDER GUARD) [facility] gist Method Time Signature Tacrolimus Last 1999, [facility] Dose 06/30/14 [facility] Tacrolimus 9.3 5.0 - [facility] Level 15.0 ug/L [facility] Comment: Tacrolimus Reference Range Kidney Transplant [...] / Volume Laterality 07/01/2014 8:25 AM 4 BORDER GUARD 12:11 PM BORDER GUARD Mingo Dangelo MD LAB - BLOOD ORDERABLES Performing Organization Address City/State/ZIP Code Phon e Number [facility] [address] [place] [address] [facility] Tacrolimus level (06/24/2014 8:30 AM BORDER GUARD) [facility] gist Method Time Signature Tacrolimus Last 1999 [facility] Dose 06/23/14 [facility] Tacrolimus 10.5 5.0 - [facility] Level 15.0 ug/L [facility] Comment: Tacrolimus Reference Range Kidney Transplant [...] / Volume Laterality 06/24/2014 8:30 AM 4 BORDER GUARD 11:18 AM BORDER GUARD Deysi Alicea MD LAB - BLOOD ORDERABLES Performing Organization Address City/State/ZIP Code Phon e Number [facility] [address] [place] [address] [facility] LABS documented in this encounter Visit Diagnoses Not on filedocumented in this encounter Care Teams Offset Pressman Relationship Specialty Start Date End Date Momo Forbes PCP - General Family Practice 01/02/14 [facility] [address] [place] [address] Ingrid Santana, RN Registered Nurse Transplant 02/10/12 10/01/15 documented as of this encounter
--- OUTSIDE RECORDS SUMMARY | 2022-05-19 11:37 | XMS_ITS | Encounter Summary ---
:1950 Author Organization [place] Address [address] [place] [address] Care Team Providers Name Role Phone Ingrid Santana RN Unavailable Momo Forbes Primary Care Provider Encounter Details Date Type Department Care Team Description 08/22/2014 Orders Only [facility], Joseph Conor [facility], [facility] [address] [phone] [place] [address] [address] [place] [address] (Wo rk) Social History Tobacco [...] Res ults for this MASS SPECTROMETRY AM STOCKROOM WORKER procedure are in the results section. documented in this encounter Results Tacrolimus level (08/26/2014 10:21 AM STOCKROOM WORKER) Patholo gist Method Time Signature Tacrolimus Last 08/25/14 [facility] Tacrolimus 6.6 5.0 - [facility] 15.0 ug/L [facility] Comment: Tacrolimus Reference Range Kidney [...] its perform ance characteristics determined by the [facility], ??Special Chemistry Laboratory. It has not been cleared or approved by the FDA . The laboratory is regulated under CLIA as qualified to perform high-complexity testing. This test is used for clinical purposes. It should not be regarded as investigational or for research. Specimen Anatomical Collection Method Collection Time Receive d Time (Source) Location / / Volume Laterality 08/26/2014 10:21 08/28/2014 AM STOCKROOM WORKER 11:34 AM STOCKROOM WORKER Mingo Dangelo MD LAB - BLOOD ORDERABLES Performing Organization Address City/State/ZIP Code Phon e Number [facility] [address] documented in this encounter Visit Diagnoses Not on filedocumented in this encounter Care Teams Tire Balancer Relationship Specialty Start Date End Date Momo Forbes PCP - General Family Practice 01/02/14 [facility] [address] [place] [address] Ingrid Santana, RN Registered Nurse Transplant 02/10/12 10/01/15 documented as of this encounter
--- OUTSIDE RECORDS SUMMARY | 2022-05-19 11:37 | XMS_ITS | Encounter Summary ---
:1950 Author Organization [place] Address [address] [place] [address]. [place] [address] Care Team Providers Name Role Phone Ingrid Santana RN Unavailable Momo Forbes Primary Care Provider Encounter Details Date Type Department Care Team Description 05/17/2014 Orders Only Nephrology Shiva Kahn RN -donor kidney 2nd Floor, Clinic 2A [facility] transplant recipient Tommy Mimateen [address] [place] [address] (Primary Dx) Building [address] [place] [address] [phone] Social History Tobacco Use Types Packs/Day Years [...] transplant documented in this encounter Care Teams Certified Ethical Hacker Relationship Specialty Start Date End Date Momo Forbes PCP - General Family Practice 01/02/14 [facility] [address] [place] [address] Ingrid Santana, RN Registered Nurse Transplant 02/10/12 10/01/15 documented as of this encounter
--- OUTSIDE RECORDS SUMMARY | 2022-05-19 11:37 | XMS_ITS | Encounter Summary ---
:1950 Author Organization [place] Address [facility]0 [facility] [place] [address] Care Team Providers Name Role Phone Ingrid Santana RN Unavailable Momo Forbes Primary Care Provider Reason for Visit Reason Onset Date Comments Transplant 06/20/2014 FK 6.6 Encounter Details Date Type Department Care Team Description 06/20/2014 Telephone Nephrology Carmelita Rosario, Transplant (FK 6.6) 2nd Floor, Clinic 2A [place] [phone] Social History Tobacco Use Types Packs/Day [...] transplant documented in this encounter Care Teams Resource Manager Relationship Specialty Start Date End Date Momo Forbes PCP - General Family Practice 01/02/14 [facility] [address] [place] [address] Ingrid Santana, BOGDAN Registered Nurse Transplant 02/10/12 10/01/15 documented as of this encounter
--- OUTSIDE RECORDS SUMMARY | 2022-05-19 11:37 | XMS_ITS | Encounter Summary ---
:1950 Author Organization [place] Address [facility] [address] Care Team Providers Name Role Phone Ingrid Santana RN Unavailable Momo Forbes Primary Care Provider Joseph Quintana MD Unavailable Encounter Details Date Type Department Care Team Description 07/10/2014 External Order Results The Transplant Ce nter Nurse, [facility] 2nd Floor, Clinic [address]A [address] [phone] Social History Tobacco Use Types Packs/Day Years [...] 8:17 AM Results f or this RESULTS MATHEMATICAL STATISTICIAN procedure are i n the results section. documented in this encounter Results (ABNORMAL) TXP External Lab Result (07/08/2014 8:17 AM MATHEMATICAL STATISTICIAN) [facility] Time Signature Sodium 138 135 - 145 [...] Estimated >60 >60 LABDE SCAN (if ml/min/1.7 Mauritanian) 3m2 (External) GFR Estimated 51 (L) >60 [...] / / Volume Laterality 07/08/2014 8:17 AM MATHEMATICAL STATISTICIAN Narrative JESSICA PFT - 07/10/2014 6:20 AM MATHEMATICAL STATISTICIAN Verified by Janee Alexis on 07/10/2014 . Patient Reported LABORATORY Performing Organization Address City/State/ZIP Code Phon e Number [facility] LABDE SCAN documented in this encounter Visit Diagnoses Not on filedocumented in this encounter Care Teams Punchboard Stuffer Relationship Specialty Start Date End Date Momo Forbes PCP - General Family Practice 01/02/14 [facility] [address] [place] [address] Ingrid Santana, RN Registered Nurse Transplant 02/10/12 10/01/15 Joseph Quintana, Assigned Nephrology 03/29/21 MD Provider [address] [place] [address] [address] [place] [address] documented as of this encounter
--- OUTSIDE RECORDS SUMMARY | 2022-05-19 11:37 | XMS_ITS | Encounter Summary ---
:1950 Author Organization [place] Address [facility] [place] [address] Care Team Providers Name Role Phone Ingrid Santana RN Unavailable Momo Forbes Primary Care Provider Joseph Quintana MD Unavailable Encounter Details Date Type Department Care Team Description 07/17/2014 External Order Results The Transplant Ce nter Nurse, [facility] 2nd Floor, Clinic [address]A [address] [phone] Social History Tobacco Use Types Packs/Day Years [...] 8:28 AM Results f or this RESULTS PUMP TENDER procedure are i n the results section. documented in this encounter Results (ABNORMAL) TXP External Lab Result (07/15/2014 8:28 AM PUMP TENDER) [facility] Time Signature Sodium 138 135 - [...] 60 (L) >60 LABDE SCAN (if ml/min/1.7 English) 3m2 (External) GFR Estimated 49 (L) >60 [...] / / Volume Laterality 07/15/2014 8:28 AM PUMP TENDER Narrative ZACHERYTYLER PFT - 07/17/2014 8:35 AM PUMP TENDER Verified by Maribel Plunkett on 07/17/20 14. Patient Reported LABORATORY Performing Organization Address City/State/ZIP Code Phon e Number [facility]DE SCAN documented in this encounter Visit Diagnoses Not on filedocumented in this encounter Care Teams Brush Loader And Handle Attacher Relationship Specialty Start Date End Date Momo Forbes PCP - General Family Practice 01/02/14 [facility] [address] [place] [address] Ingrid Santana, RN Registered Nurse Transplant 02/10/12 10/01/15 Joseph Quintana, Assigned Nephrology 03/29/21 MD Provider [address] [place] [address] [address] [place], [place] [id number] documented as of this encounter
--- OUTSIDE RECORDS SUMMARY | 2022-05-19 11:37 | XMS_ITS | Encounter Summary ---
:1950 Author Organization [place] Address [facility] [place] [address] Care Team Providers Name Role Phone Ingrid Santana RN Unavailable Momo Forbes Primary Care Provider Reason for Visit Reason Onset Date Comments Transplant 08/08/2014 immunosuppression mckenzie trejo Encounter Details Date Type Department Care Team Description 08/08/2014 Refill Nephrology Shiva Kahn RN Transplant 2nd Floor, Clinic 2A [facility] (immunosuppression [place] [address] [facility] management) Building [address] [place] [phone] Social History Tobacco Use Types Packs/Day Years [...] to lower Prograf dose to 1.5mg BID. FILLER Telephone Encounter - Shiva Kahn RN - 08/08/2014 5:33 PM CST ISSUE: Tacrolimus level 9.0. New target tacrolimus levels 6-8 since patient is now 6 months post kidney transplant. PLAN: Decrease Prograf dose from 2 mg twice daily to 1.5 mg twice daily. TASK: Please call patient with instructions for dose change. FILLER documented in this encounter Plan of Treatment Not on filedocumented as of this encounter Visit Diagnoses Diagnosis -donor kidney transplant recipie nt - Primary Kidney replaced by transplant documented in this encounter Care Teams Academic Department Chair Relationship Specialty Start Date End Date Momo Forbes PCP - General Family Practice 01/02/14 [place] [address] Ingrid Santana, RN Registered Nurse Transplant 02/10/12 10/01/15 documented as of this encounter
--- OUTSIDE RECORDS SUMMARY | 2022-05-19 11:37 | XMS_ITS | Encounter Summary ---
:1950 Author Organization [place] Address [facility] [place] [address] Care Team Providers Name Role Phone Ingrid Santana RN Unavailable Momo Forbes Primary Care Provider Reason for Visit Reason Onset Date Comments Pre Visit Planning - Done 05/13/2014 6 week f/u pos t op afib. medication changes last visit. Encounter Details Date Type Department Care Team Description 05/13/2014 PRE VISIT [facility] [address] Pre Visit Planning - Physicians Orestes Hernandez MD Done (6 week f/u post [facility] op afib. medication Building [place] changes last visit. ) 4th Floor, Clinic 4B [phone] [place] [address] (Wo rk) [phone] Social History Tobacco Use Types Packs/Day Years [...] on filedocumented in this encounter Care Teams Key Account Coordinator Relationship Specialty Start Date End Date Momo Forbes PCP - General Family Practice 01/02/14 [facility] [address] [place] [address] Ingrid Santana RN Registered Nurse Transplant 02/10/12 10/01/15 documented as of this encounter
--- OUTSIDE RECORDS SUMMARY | 2022-05-19 11:38 | XMS_ITS | Encounter Summary ---
:1950 Author Organization [place] Address [address] [place] [address] Care Team Providers Name Role Phone Ingrid Santana RN Unavailable Momo Forbes Primary Care Provider Reason for Visit Reason Onset Date Comments Anticoagulation 04/01/2014 Encounter Details Date Type Department Care Team Description 04/01/[address] [facility] Joseph Levine , Anticoagulation Anticoagulation Clin ic [facility] [address] [place], [place] [phone] [facility] [phone] [place] [address] 812 [place] [address] (Wo rk) Social History Tobacco [...] Miscellaneous Notes Telephone Encounter - Joseph Levine, [facility] - 04/01/2014 5:22 PM CDT INR [...] on filedocumented in this encounter Care Teams Cabin Furnishings Installer Relationship Specialty Start Date End Date Momo Forbes PCP - General Family Practice 01/02/14 [place] [phone] Ingrid Santana, RN Registered Nurse Transplant 02/10/12 10/01/15 documented as of this encounter
--- OUTSIDE RECORDS SUMMARY | 2022-05-19 11:38 | XMS_ITS | Encounter Summary ---
:1950 Author Organization [place] Address [facility] [place] [address] Care Team Providers Name Role Phone Ingrid Santana RN Unavailable Momo Forbes Primary Care Provider Reason for Visit Reason Comments Heart Problem 2 m f/u Post op AFIB s/p DCC V. on warfarin 4 weeks Encounter Details Date Type Department Care Team Description 04/09/2014 [facility]ill [facility] (H) (Primary Dx); [place] [facility] Enrique Maria pecified essential hypertension; Heart Other and unspecified hyperlipidemia; [facility] (di[facility] type 2 (H) Building [place] 4th Floor, Clinic 4B [address] [phone] [place], [place] (Work) [phone] Social History Tobacco Use Types Packs/Day Years [...] questions or concerns. 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 Specific Ashley Urine 04/01/2014 1.017 1.003 - 1.035 Final [...] NEG Ketones Urine Negative NEG mg/dL Specific [place] Urine 1.017 1.003 - 1.035 Blood Urine [...] uncontrolled documented in this encounter Care Teams Pulmonary Function Technician Relationship Specialty Start Date End Date Momo Forbes PCP - General Family Practice 01/02/14 [facility] [address] [place] [address] Ingrid Santana, RN Registered Nurse Transplant 02/10/12 10/01/15 documented as of this encounter
--- OUTSIDE RECORDS SUMMARY | 2022-05-19 11:38 | XMS_ITS | Encounter Summary ---
:1950 Author Organization [place] Address [facility] [place] [address] Care Team Providers Name Role Phone Ingrid Santana RN Unavailable Momo Forbes Primary Care Provider Reason for Visit Reason Onset Date Comments Pre Visit Planning - Done 04/08/2014 2 m f/u Post o p AFIB s/p DCCV. on warfarin 4 weeks Encounter Details Date Type Department Care Team Description 04/08/2014 PRE VISIT [facility] [address] Pre Visit Planning - Physicians Orestes Hernandez MD Done (2 m f/u Post op [facility] AF IB s/p DCCV. on [facility] warfarin 4 weeks) 4th Floor, Clinic 4B [phone] [place] [address] (Wo rk) [phone] Social History Tobacco Use Types Packs/Day Years [...] on filedocumented in this encounter Care Teams In Flight Refueling Craftsman Relationship Specialty Start Date End Date Momo Forbes PCP - General Family Practice 01/02/14 [facility] [address] [place] [phone] Ingrid Santana, RN Registered Nurse Transplant 02/10/12 10/01/15 documented as of this encounter
--- OUTSIDE RECORDS SUMMARY | 2022-05-19 11:38 | XMS_ITS | Encounter Summary ---
:1950 Author Organization [place] Address [facility] [place] [address] Care Team Providers Name Role Phone Ingrid Santana RN Unavailable Momo Forbes Primary Care Provider Reason for Visit Reason Comments RECHECK s/p kidney tx Auth/Cert - Closed Specialty Diagnoses / Procedures Referred By Contact Refer red To Contact Surgery Diagnoses S/P Kidney Transplant Uu Periop Procedures COMBINED CYSTOSCOPY, REMOVE STENT(S) 500 [place] [address] Phone: Fax: Referral ID Status Reason Start Date Expiration Date Visits Requ ested Visits Authorized [id number] Closed 1 1 Encounter Details Date Type Department Care Team Description 04/01/2014 Office Visit Nephrology Deysi Alicea Immunosuppressed status (H) (Primary Dx); 2nd Floor, Clinic MD Aline High risk medication use; 2A [facility] Kidney replaced by ania tTashi DOMÍNGUEZ S/P kidney transplant [place] [address] [place] [address] [place], [place] (Work) [address] [phone] Social History Tobacco Use Types Packs/Day Years [...] -no follow up, I will ask his quality improvement coordinator (rn) to obtain results from his local clnic [...] at home regularly; BP checked by me xxs578/80; HE was previously on Metoprolol 12.5 mg [...] documented in this encounter Care Teams Rn Occupational Health Relationship Specialty Start Date End Date Momo Forbes PCP - General Family Practice 01/02/14 [facility] [address] [place] [address] Ingrid Santana, RN Registered Nurse Transplant 02/10/12 10/01/15 documented as of this encounter
--- OUTSIDE RECORDS SUMMARY | 2022-05-19 11:38 | XMS_ITS | Encounter Summary ---
:1950 Author Organization [place] Address [address] [place] [address]. [place] [address] Care Team Providers Name Role Phone Ingrid Santana RN Unavailable Momo Forbes Primary Care Provider Encounter Details Date Type Department Care Team Description 05/10/2014 Orders Only Nephrology Shiva Kahn RN -donor kidney 2nd Floor, Clinic 2A [facility] transplant recipient Tommy Mimateen [address] [place] [address] (Primary Dx) Building [address] [place] [phone] Social History Tobacco Use Types Packs/Day Years [...] transplant documented in this encounter Care Teams Junior Php Developer Relationship Specialty Start Date End Date Momo Forbes PCP - General Family Practice 01/02/14 [facility] [address] [place] [address] Ingrid Santana, RN Registered Nurse Transplant 02/10/12 10/01/15 documented as of this encounter
--- OUTSIDE RECORDS SUMMARY | 2022-05-19 11:38 | XMS_ITS | Encounter Summary ---
:1950 Author Organization [place] Address [address] [place] [address]. [place] [address] Care Team Providers Name Role Phone Ingrid Santana RN Unavailable Momo Forbes Primary Care Provider Encounter Details Date Type Department Care Team Description 04/04/2014 Orders Only Nephrology Shiva Kahn, RN S/P kidney transplant 2nd Floor, [facility] [address] [place] [address] [place] [phone] Social History Tobacco Use Types Packs/Day Years [...] in this encounter Care Teams Director Of Programming Relationship Specialty Start Date End Date Momo Forbes PCP - General Family Practice 01/02/14 [facility] [address] [place] [address] Ingrid Santana, RN Registered Nurse Transplant 02/10/12 10/01/15 documented as of this encounter
--- OUTSIDE RECORDS SUMMARY | 2022-05-19 11:38 | XMS_ITS | Encounter Summary ---
:1950 Author Organization [place] Address Count includes the [facility]0 [facility] [place] [address] Care Team Providers Name Role Phone Ingrid Santana RN Unavailable Momo Forbes Primary Care Provider Reason for Visit Reason Comments RECHECK 3 month Tx follow Up Encounter Details Date Type Department Care Team Description 05/13/2014 Office Visit Nephrology Deysi Alicea, DM (diabetes mellitus), type 2 (H) (Primary Dx); 2nd Floor, Clinic 2A S/P kidney transplant Tommy Wilburn [address] [phone] (Wo rk) [address] [phone] Social History Tobacco Use Types Packs/Day Years [...] discharged on Cumadin; Cumadin was stopped by skiver counter during the follow up visit, as he [...] Years of Education: 14 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
--- OUTSIDE RECORDS SUMMARY | 2022-05-19 11:38 | XMS_ITS | Encounter Summary ---
:1950 Author Organization [place] Address [address] [place] [address]. [place] [address] Care Team Providers Name Role Phone Ingrid Santana RN Unavailable Momo Forbes Primary Care Provider Reason for Visit Reason Onset Date Comments Refill Request 04/26/2014 Encounter Details Date Type Department Care Team Description 04/26/2014 Refill Nephrology Shiva Kahn RN Refill Request 2nd Floor, Clinic 2A [facility] Sanders [place] [phone] [place] [address] [place] [phone] Social History Tobacco Use Types Packs/Day [...] transplant documented in this encounter Care Teams Toll Gate Keeper Relationship Specialty Start Date End Date Momo Forbes PCP - General Family Practice 01/02/14 [facility] [address] [place] [address] Ingrid Santana, RN Registered Nurse Transplant 02/10/12 10/01/15 documented as of this encounter
--- OUTSIDE RECORDS SUMMARY | 2022-05-19 11:38 | XMS_ITS | Encounter Summary ---
:1950 Author Organization [place] Address [address] [facility] [place] [address] Care Team Providers Name Role Phone Ingrid Santana RN Unavailable Momo Forbes Primary Care Provider Reason for Visit Auth/Cert - Closed Specialty Diagnoses / Procedures Referred By Contact Refer red To Contact Surgery Diagnoses S/P Kidney Transplant Uu Periop Procedures COMBINED CYSTOSCOPY, REMOVE STENT(S) 500 [place] [address] Phone: Fax: Referral ID Status Reason Start Date Expiration Date Visits Requ ested Visits Authorized [id number] Closed 1 1 Encounter Details Date Type Department Care Team Description 04/01/2014 Anesthesia Event [facility] Clari Torres MD PeriOp Services [facility] ANESTHESIA 500 [place] [address] [place] [address] [place] [address] (Wo rk) Anesthesia Record Procedure Summary Procedure [...] benefits and alternatives discussed with: patient or car sales representative. I agree with the plan [...] Intra-op documented in this encounter Care Teams Solderer Torch Relationship Specialty Start Date End Date Momo Forbes PCP - General Family Practice 01/02/14 [place] [address] Ingrid Santana, RN Registered Nurse Transplant 02/10/12 10/01/15 documented as of this encounter
--- OUTSIDE RECORDS SUMMARY | 2022-05-19 11:38 | XMS_ITS | Encounter Summary ---
:1950 Author Organization [place] Address [address] [place] [address] Care Team Providers Name Role Phone Ingrid Santana RN Unavailable Momo Forbes Primary Care Provider Reason for Visit Auth/Cert - Closed Specialty Diagnoses / Procedures Referred By Contact Refer red To Contact Surgery Diagnoses S/P Kidney Transplant Uu Periop Procedures COMBINED CYSTOSCOPY, REMOVE STENT(S) 500 [place] [address] Phone: Fax: Referral ID Status Reason Start Date Expiration Date Visits Requ ested Visits Authorized [id number] Closed 1 1 Encounter Details Date Type Department Care Team Description 04/01/2014 Hospital Encounter Formerly [facility] Migel Merchant, Same Day Surgery [facility] 420 [facility] 500 [facility] 195 [place] [address] [place] [address] (Wo rk) Social History Tobacco Use Types [...] Scott RN - 04/01/2014 10:15 AM CDT [facility], [place] Same-Day Surgery Adult Discharge Orders & Instructions [...] To contact a doctor, call or: ??? [phone] and ask for the resident dye automation operator for (answered 24 hours a day) ??? Emergency Department: [facility]: [phone] (TTY for hearing impaired: [phone]) documented in this encounter Medications at Time [...] Women Range Method Time Signature Specimen Unspecified [facility] Urine CAMPUS LABS Special Specimen [facility] Requests received in MICROBIOLOGY preservative Culture Micro No growth [facility] MICROBIOLOGY Micro Report FINAL [facility] Status 04/02/2014 MICROBIOLOGY Specimen Anatomical Collection Method Collection Time Receive d Time (Source) Location / / Volume Laterality 04/01/2014 9:00 AM 4 9:18 CDT AM CDT Migel Merchant MD LAB - MICRO GENERAL ORDERABL ES Performing Organization Address City/State/ZIP Code Phon e Number [address] [address] [facility] UNIVERSITY CAMPUS LABS [facility] MICROBIOLOGY (ABNORMAL) UA with Microscopic (04/01/2014 9:00 AM CDT) Component Value Ref Test Analysis Performed At Patholo gist Range Method Time Signature Color Urine Yellow [facility] UNIVERSITY CAMPUS LABS Appearance Urine Clear [facility] UNIVERSITY CAMPUS LABS Glucose Urine 30 (A) NEG [facility] mg/dL UNIVERSITY CAMPUS LABS Bilirubin U[facility] Negative [facility] UN[facility] LAB[facility] Ketones Urine Negative NEG [facility] mg/dL UNIVERSITY CAMPUS LABS Specific [place] 1.017 1.003 - [facility] Urine 1.035 UNIVERSITY CAMPUS LABS Blood Urine Moderate (A) NEG [facility] UNIVERSITY CAMPUS LABS pH Urine 6.0 5.0 - [facility] 7.0 pH UNIVERSITY [place] LABS Protein Albumin 10 (A) NEG [facility] Urine mg/dL UNIVERSITY CAMPUS LABS Urobilinogen Normal 0.0 - [facility] mg/dL 2.0 UNIVERSITY mg/dL CAMPUS LABS Nitrite Urine Negative NEG [facility] UNIVERSITY CAMPUS LABS Leukocyte Negative NEG [facility] Esterase Urine UNIV[facility]ITY [place] LABS Source Unspecified [facility] Urine UNIVERSITY CAMPUS LABS WBC Urine 2 0 - 2 [facility] /HPF [facility] LABS RBC Urine 30 (H) [...] Address City/State/ZIP Code Phon e Number [address] LABS (ABNORMAL) INR (04/01/2014 8:36 AM CDT) P athologist Signature INR 1.64 (H) 0.86 - 1.14 [facility] LABS Specimen Anatomical Collection Method Collection Time Receive d Time (Source) Location / / Volume Laterality Blood specimen 04/01/2014 8:36 AM 014 8:41 (specimen) CDT AM CDT Momo Jimenez MD LAB - BLOOD ORDERABLES Performing Organization Address City/State/ZIP Code Phon e Number [address] LABS EKG 12-lead, tracing only (04/01/2014 8:28 AM CDT) [facility] gist Method Time Signature Interpretation ECG Click [...] City/[facility]/ZIP Code Phon e Number [facility] [address] LABS (ABNORMAL) Hemoglobin (04/01/2014 8:11 AM CDT) athologist Signature Hemoglobin 10.2 (L) 13.3 - [facility] 17.7 g/dL CAMPUS LABS Specimen Anatomical Collection Method Collection Time Receive d Time (Source) Location / / Volume Laterality Blood specimen 04/01/2014 8:11 AM 014 8:27 (specimen) CDT AM CDT Momo Jimenez MD LAB - BLOOD ORDERABLES Performing Organization Address City/[facility]/ZIP Code Phon e Number [facility] [address] LABS (ABNORMAL) Glucose by meter (04/01/2014 [...] 0850 (Given - Provider: Addis Brannon APRN LICENSED APPRAISER - Comment: Asked by Fellow to give [...] Intra-procedure documented in this encounter Care Teams It Trainee Relationship Specialty Start Date End Date Momo Forbes PCP - General Family Practice 01/02/14 [facility] 1999 [place] [address] Ingrid Santana, RN Registered Nurse Transplant 02/10/12 10/01/15 documented as of this encounter
--- OUTSIDE RECORDS SUMMARY | 2022-05-19 11:38 | XMS_ITS | Encounter Summary ---
:1950 Author Organization [place] Address [facility]0 [facility] [place] [address] Care Team Providers Name Role Phone Ingrid Santana RN Unavailable Momo Forbes Primary Care Provider Reason for Visit Reason Onset Date Comments Patient Reminder 05/09/2014 Encounter Details Date Type Department Care Team Description 05/09/2014 Telephone Nephrology Yesenia Clements CMA Patient Reminder 2nd Floor, Clinic [address] [place] [phone] Social History Tobacco Use Types [...] on filedocumented in this encounter Care Teams Glass Mould Cleaner Relationship Specialty Start Date End Date Momo Forbes PCP - General Family Practice 01/02/14 [facility] 1999 [place] [address] Ingrid Santana, RN Registered Nurse Transplant 02/10/12 10/01/15 documented as of this encounter
--- OUTSIDE RECORDS SUMMARY | 2022-05-19 11:38 | XMS_ITS | Encounter Summary ---
:1950 Author Organization [place] Address [address] [place] [address]. [place] [address] Care Team Providers Name Role Phone Ingrid Santana RN Unavailable Momo Forbes Primary Care Provider Reason for Visit Reason Onset Date Comments Refill Request 04/05/2014 Tamy Cabrera Encounter Details Date Type Department Care Team Description 04/05/2014 Refill The Transplant Migle Martinez, Refill Request 2nd Floor, Clinic 2A (Tommy Cabrera Ban[place] [address] [place] [address] antoprazole) Building [facility] [address] [place] [address] 88 [place] [phone] Social History Tobacco Use Types Packs/Day Years [...] Last Fill: 03/14/14 Qty: 30 [facility] [phone] documented in this encounter Plan of Treatment Not on filedocumented as of this encounter Visit Diagnoses Diagnosis S/P kidney transplant Kidney replaced by transplant Atrial fibrillation (H) Atrial fibrillation documented in this encounter Care Teams Civil Manager Relationship Specialty Start Date End Date Momo Forbes PCP - General Family Practice 01/02/14 [facility] 1999 [place] [address] Ingrid Santana, RN Registered Nurse Transplant 02/10/12 10/01/15 documented as of this encounter
--- OUTSIDE RECORDS SUMMARY | 2022-05-19 11:38 | XMS_ITS | Encounter Summary ---
:1950 Author Organization [place] Address [address] [place] [address] Care Team Providers Name Role Phone Ingrid Santana RN Unavailable Momo Forbes Primary Care Provider Encounter Details Date Type Department Care Team Description 04/22/2014 Orders Only [facility], [facility], [facility] [place] [address] [phone] [place] [address] 786 [place] [address] (Wo rk) Social History Tobacco [...] (ABNORMAL) Tacrolimus level (05/17/2014 8:17 AM CDT) [facility] Method Time Signature Tacrolimus Last 05/16/2014 [facility] Dose 2000 [facility] LABS Tacrolimus 4.4 (L) 5.0 - [facility] Level 15.0 ug/L [facility] LABS Comment: Tacrolimus Reference Range Kidney Transplant [...] Phon e Number [facility] 500 [place], [place] [id number] [place] [address] [facility] (ABNORMAL) Tacrolimus level (05/15/2014 8:15 AM CDT) [facility] gist Method Time Signature Tacrolimus Last 05/14/14 [facility] Dose 2000 [facility] LABS Tacrolimus 4.6 (L) 5.0 - [facility] Level 15.0 ug/L [facility] LABS Comment: Tacrolimus Reference Range Kidney Transplant [...] Phon e Number [facility] 500 [place], [place] [phone] [place] [address] [facility] LABS Tacrolimus level (05/10/2014 8:50 AM CDT) [facility] gist Method Time Signature Tacrolimus Not Provided [facility] Last Dose [facility] LABS Tacrolimus 14.3 5.0 - [facility] Level 15.0 ug/L [facility] LABS Comment: Tacrolimus Reference Range Kidney Transplant [...] Phon e Number [facility] 500 [place], [place] [phone] [place] [address] [facility] LABS (ABNORMAL) Tacrolimus level (05/07/2014 8:15 AM CDT) [facility] gist Method Time Signature Tacrolimus Last 05/06/14 [facility] Dose 2000 [facility] LABS Tacrolimus 15.9 (H) 5.0 - [facility] Level 15.0 ug/L [facility] LABS Comment: Tacrolimus Reference Range Kidney Transplant [...] Phon e Number [facility] 500 [place], [place] [id number] [place] [address] [facility] LABS Tacrolimus level (05/03/2014 8:13 AM CDT) [facility] gist Method Time Signature Tacrolimus Last [facility] Dose 2000 [facility] LABS Tacrolimus 8.8 5.0 - [facility] Level 15.0 ug/L [facility] LABS Comment: Tacrolimus Reference Range Kidney Transplant [...] 8:13 AM 4 3:08 CDT PM CDT Desyi Alicea MD LAB - BLOOD ORDERABLES Performing Organization Address City/State/ZIP Code Phon e Number [facility] 500 [place], [place] [id number] [place] [address] [facility] LABS Tacrolimus level (04/30/2014 8:20 AM CDT) [facility] gist Method Time Signature Tacrolimus Last 04/29/14 [facility] Dose 2000 [facility] LABS Tacrolimus 12.6 5.0 - [facility] Level 15.0 ug/L [facility] LABS Comment: Tacrolimus Reference Range Kidney Transplant [...] Phon e Number [facility] 500 [place], [place] [id number] [place] [address] [facility] LABS Tacrolimus level (04/26/2014 8:30 AM CDT) [facility] gist Method Time Signature Tacrolimus Last 04/25/14 [facility] Dose 1900 [facility] LABS Tacrolimus 10.1 5.0 - [facility] Level 15.0 ug/L [facility] LABS Comment: Tacrolimus Reference Range Kidney Transplant [...] - BLOOD ORDERABLES Performing Organization Address City/State/[facility] Phon e Number [facility] 500 [place], [place] [id number] [place] [address] [facility] LABS Tacrolimus level (04/24/2014 9:00 AM CDT) [facility] gist Method Time Signature Tacrolimus Last 04/23/14 [facility] Dose 1900 [facility] LABS Tacrolimus 13.1 5.0 - [facility] Level 15.0 ug/L [facility] LABS Comment: Tacrolimus Reference Range Kidney Transplant [...] Phon e Number [facility] 500 [place], [place] [phone] [place] [address] LABS documented in this encounter Visit Diagnoses Not on filedocumented in this encounter Care Teams Ship Joiner Relationship Specialty Start Date End Date Momo Forbes PCP - General Family Practice 01/02/14 [facility] 1999 [place] [address] Ingrid Santana, RN Registered Nurse Transplant 02/10/12 10/01/15 documented as of this encounter
--- OUTSIDE RECORDS SUMMARY | 2022-05-19 11:38 | XMS_ITS | Encounter Summary ---
:1950 Author Organization [place] Address [address] [facility] [place] [address] Care Team Providers Name Role Phone Ingrid Santana RN Unavailable Momo Forbes Primary Care Provider Reason for Visit Reason Onset Date Comments Anticoagulation 03/29/2014 Encounter Details Date Type Department Care Team Description 03/29/2014 Telephone [facility] Mary Sheffield RN Anticoagulation Anticoagulation Clin ic 420 [place], [place] [phone] Social History Tobacco Use [...] \this patient. He has IN[facility] done at [facility] He takes Warfarin 5 mg [...] on filedocumented in this encounter Care Teams Candle Molder Relationship Specialty Start Date End Date Momo Forbes PCP - General Family Practice 01/02/14 [place] [address] Ingrid Santana, RN Registered Nurse Transplant 02/10/12 10/01/15 documented as of this encounter
--- OUTSIDE RECORDS SUMMARY | 2022-05-19 11:38 | XMS_ITS | Encounter Summary ---
:1950 Author Organization [place] Address [address] [place] [address] Care Team Providers Name Role Phone Ingrid Santana RN Unavailable Momo Forbes Primary Care Provider Reason for Visit Auth/Cert - Closed Specialty Diagnoses / Procedures Referred By Contact Refer red To Contact Surgery Diagnoses S/P Kidney Transplant Uu Periop Procedures COMBINED CYSTOSCOPY, REMOVE STENT(S) 500 [place] [address] Phone: Fax: Referral ID Status Reason Start Date Expiration Date Visits Requ ested Visits Authorized [id number] Closed 1 1 Encounter Details Date Type Department Care Team Description 04/01/2014 Surgery [facility] Migel Merchant Romoval of Right Double PeriOp Services J Stent 500 [facility] 420 [place] [address] [place] [address] [place] [address] (Wo rk) Surgery Details Date/Time Status Location OR Service Patient Case Case Traum a Class Class Type Case? 04/01/14 7:30 Posted UU OR UU OR Transplant Same Day AM 04 Surgery Panel 1 Procedure LRB Anes Op Region Wound Class Commen ts Romoval of Right Right MAC Urethra II-Clean Contaminat ed Romoval of Right Double J Stent Double J S tent Surgeon Surgeon Role Service Panel Migel Merchant [...] Scott RN - 04/01/2014 10:15 AM CDT [facility], [place] Same-Day Surgery Adult Discharge Orders & Instructions [...] To contact a doctor, call or: ??? [phone] and ask for the resident station master for (answered 24 hours a day) ??? Emergency Department: [facility]: [phone] (TTY for hearing impaired: [phone]) documented in this encounter Medications at Time [...] Component Value Ref Test Analysis [facility] gist Range Method Time Signature Specimen Unspecified [facility] UNIVERSITY Description Urine CAMPUS LABS Special Specimen [facility] Requests received in MICROBIOLOGY preservative Culture Micro No growth [facility] MICROBIOLOGY Micro Report FINAL [facility] Status 04/02/2014 MICROBIOLOGY Specimen Anatomical Collection Method Collection Time Receive d Time (Source) Location / / Volume Laterality 04/01/2014 9:00 AM 4 9:18 CDT AM CDT Migel Merchant MD LAB - MICRO GENERAL ORDERABL ES Performing Organization Address City/State/ZIP Code Phon e Number [facility] 500 [place] [address] [facility] UNIVERSITY CAMPUS LABS [facility] MICROBIOLOGY (ABNORMAL) UA with Microscopic (04/01/2014 9:00 AM CDT) Component Value Ref Test Analysis Performed At Patholo gist Range Method Time Signature Color Urine Yellow [facility] UN[facility] LABS Appearance Urine Clear [facility] UNIVERSITY CAMPUS LABS Glucose Urine 30 (A) NEG [facility] mg/dL UNIVERSITY CAMPUS LABS Bilirubin Urine Negative NEG [facility] UNIVERSITY CAMPUS LABS Ketones Urine Negative NEG [facility] mg/dL UNIVERSITY CAMPUS LABS Specific [place] 1.017 1.003 - [facility] Urine 1.035 UNIVERSITY [...] Phon e Number [facility] 500 [place] [address] [facility] UNIVERSITY CAMPUS LABS (ABNORMAL) INR (04/01/2014 8:36 AM CDT) P athologist Signature INR 1.64 (H) 0.86 - 1.14 [facility] UNIVERSITY CAMPUS LABS Specimen Anatomical Collection Method Collection Time Receive d Time (Source) Location / / Volume Laterality Blood specimen 04/01/2014 8:36 AM 014 8:41 (specimen) CDT AM CDT Momo Jimenez MD LAB - BLOOD ORDERABLES Performing Organization Address City/[facility]/ZIP Code Phon e Number [facility] [address] LABS EKG 12-lead, tracing only (04/01/2014 8:28 AM CDT) [facility] gist Method Time Signature Interpretation ECG Click View RADIOLOGY Image link RESULTS to view waveform and result Specimen (Source) Anatomical Collection Method Collection Time Re ceived Time Location / / Volume Laterality 04/01/2014 8:28 AM CDT Momo Jimenez MD ECG ORDERABLES Performing Organization Address City/[facility]/ZIP Code Phon e Number RADIOLOGY RESULTS Potassium (04/01/2014 8:11 AM CDT) athologist Signature Potassium 4.1 3.4 - 5.3 [facility] mmol/L CAMPUS LABS Specimen Anatomical Collection Method Collection Time Receive d Time (Source) Location / / Volume Laterality Blood specimen 04/01/2014 8:11 AM 014 8:27 (specimen) CDT AM CDT Momo Jimenez MD LAB - BLOOD ORDERABLES Performing Organization Address City/[facility]/ZIP Code Phon e Number [facility] [address] LABS (ABNORMAL) Hemoglobin (04/01/2014 8:11 AM CDT) athologist Signature Hemoglobin 10.2 (L) 13.3 - [facility] 17.7 g/dL [place] LABS Specimen Anatomical Collection Method Collection Time Receive d Time (Source) Location / / Volume Laterality Blood specimen 04/01/2014 8:11 AM 014 8:27 (specimen) CDT AM CDT Momo Jimenez MD LAB - BLOOD ORDERABLES Performing Organization Address City/[facility] Phon e Number [facility] [address] LABS (ABNORMAL) Glucose by meter (04/01/2014 [...] 0850 (Given - Provider: Addis Brannon APRN INSULATION EXTRUDER OPERATOR - Comment: Asked by Fellow to [...] Intra-procedure documented in this encounter Care Teams Senior Android Software Engineer Relationship Specialty Start Date End Date Momo Forbes PCP - General Family Practice 01/02/14 [facility] [address] [place] [phone] Ingrid Santana, RN Registered Nurse Transplant 02/10/12 10/01/15 documented as of this encounter
--- OUTSIDE RECORDS SUMMARY | 2022-05-19 11:38 | XMS_ITS | Encounter Summary ---
:1950 Author Organization [place] Address [address] [place] [address]. [place] [address] Care Team Providers Name Role Phone Ingrid Santana RN Unavailable Momo Forbes Primary Care Provider Encounter Details Date Type Department Care Team Description 05/02/2014 Orders Only Nephrology Shiva Kahn RN -donor kidney 2nd Floor, Clinic 2A [facility] transplant recipient Tommy Josephensteen [address] [place] [address] [place] [phone] Social History Tobacco Use Types Packs/Day Years [...] transplant documented in this encounter Care Teams Ham Sawyer Relationship Specialty Start Date End Date Momo Forbes PCP - General Family Practice 01/02/14 [facility] 1999 [place] [address] Ingrid Santana RN Registered Nurse Transplant 02/10/12 10/01/15 documented as of this encounter
--- OUTSIDE RECORDS SUMMARY | 2022-05-19 11:39 | XMS_ITS | Encounter Summary ---
:1950 Author Organization [place] Address Critical access hospital0 [facility] [place] [address] Care Team Providers Name Role Phone Ingrid Santana RN Unavailable Momo Forbes Primary Care Provider Reason for Visit Reason Onset Date Comments Patient Reminder 03/26/2014 Encounter Details Date Type Department Care Team Description 03/26/2014 Telephone Nephrology Yesenia Clements CMA Patient Reminder 2nd Floor, Clinic [address] [place] [phone] Social History Tobacco Use Types [...] on filedocumented in this encounter Care Teams Mobile Heavy Equipment Operator Relationship Specialty Start Date End Date Momo Forbes PCP - General Family Practice 01/02/14 [facility] 1999 [place] [address] Ingrid Santana, RN Registered Nurse Transplant 02/10/12 10/01/15 documented as of this encounter
--- OUTSIDE RECORDS SUMMARY | 2022-05-19 11:39 | XMS_ITS | Encounter Summary ---
:1950 Author Organization [place] Address [address] [place] [address]. [place] [address] Care Team Providers Name Role Phone Ingrid Santana RN Unavailable Momo Forbes Primary Care Provider Encounter Details Date Type Department Care Team Description 03/11/2014 Orders Only Transplant Surgery Celina Cole (Primary Clinic A, Dx) 2nd Floor, Clinic 2A [address] [place] [address] [address] [facility] [place] [address] Social History Tobacco Use Types [...] channels documented in this encounter Care Teams Aligning Inspector Relationship Specialty Start Date End Date Momo Forbes PCP - General Family Practice 01/02/14 [facility] 1999 [place] [address] Ingrid Santana, RN Registered Nurse Transplant 02/10/12 10/01/15 documented as of this encounter
--- OUTSIDE RECORDS SUMMARY | 2022-05-19 11:39 | XMS_ITS | Encounter Summary ---
:1950 Author Organization [place] Address [facility] [place] [address] Care Team Providers Name Role Phone Ingrid Santana RN Unavailable Momo Forbes Primary Care Provider Reason for Visit Reason Comments Eval/Assessment LBA Encounter Details Date Type Department Care Team Description 02/14/2014 Office Visit Specialty Infusion Edward, Naim S, Kidney r eplaced by transplant (Primary Dx); and Procedure Center Immunosuppression (H); Arpita [facility] Hyperka lemia; Building [place] Hypophosphatemia; 2nd Floor [address] Atrial fibrillation (H); [address] [place], [place]; [place] [address] HTN (hypertension) [place], [place] [phone] (Work) [phone] Social History Tobacco Use Types Packs/Day Years [...] Years of Education: 14 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
--- OUTSIDE RECORDS SUMMARY | 2022-05-19 11:39 | XMS_ITS | Encounter Summary ---
:1950 Author Organization [place] Address [address] [place] [address]. [place] [address] Care Team Providers Name Role Phone Ingrid Santana RN Unavailable Momo Forbes Primary Care Provider Reason for Visit Reason Onset Date Comments Refill Request 02/15/2014 Encounter Details Date Type Department Care Team Description 02/15/2014 Refill Nephrology Shiva Kahn RN Refill Request 2nd Floor, Clinic 2A [facility] [place] [address] [facility] [address] [phone] [place] [address] [place] [phone] Social History Tobacco Use Types Packs/Day [...] on filedocumented in this encounter Care Teams Cyber Engineer Relationship Specialty Start Date End Date Momo Forbes PCP - General Family Practice 01/02/14 [facility] 1999 [place], [place] [phone] Ingrid Santana, RN Registered Nurse Transplant 02/10/12 10/01/15 documented as of this encounter
--- OUTSIDE RECORDS SUMMARY | 2022-05-19 11:39 | XMS_ITS | Encounter Summary ---
:1950 Author Organization [place] Address [facility] [place] [address] Care Team Providers Name Role Phone Ingrid Santana RN Unavailable Momo Forbes Primary Care Provider Reason for Visit Reason Comments Surgical Followup kidney tx 02/02/14 Encounter Details Date Type Department Care Team Description 02/25/2014 Office Visit Transplant Surgery Migel Merchant Hypophosp hatemia (Primary Dx); Clinic MD Nathan Kidney replaced by transplant; 2nd Floor, Clinic 2A [address] [place] -donor kidney transp lant recipient; [address]SE [employer] 1 95 High risk medications (not anticoagulant s) long-term use; Building [facility] (current) use of anticoagulant s; [address] [place], [place]; [place] [address] Orthostatic hypotension [employer] 88 [place], [place] (Work) [address] Social History Tobacco Use [...] mid wound(lemon sized) c/w known hematoma. Procedure: Peculiar and drain removed. Steri strips applied. Hematology: [...] will give mag and phos prescription. 5. Peculiar - Out today 6 Drain -- out [...] sults (not anticoagulants) section . long-term use intermediate accountant (current) use of anticoagulants PHOSPHORUS Routine 02/25/2014 [...] Component Value Ref Test Analysis Performed At [facility] Range Method Time Signature BK Virus DNA Plasma, EDTA [facility] Quant Source anticoagulant [facility] BK Virus DNA <390 [facility] Quant Unit: cpy/mL [facility] Copy/mL [place] [facility] BK Virus DNA <2.6 [facility] Quant Log Unit: log [place] (Note) [place] [facility] INTERPRETIVE INFORMATION: BK Virus, Quantitation by [...] methodologies. Test developed and characteristics determined by [facility]. See Compliance Statement A: UsingMiles.[employer]/CS BK Virus DNA Not Detected [facility] Quant Interp Reference range: Not Detected [place] (Note) [place] [facility] Performed by [facility], [address] [place] [id number] [email or web address], Kj Mcmillan MD, Lab. Director Specimen Anatomical Collection Method Collection Time Receive d Time (Source) Location / / Volume Laterality Blood specimen 02/25/2014 10:54 4 (specimen) AM CDT 10:55 AM CDT Deysi Alicea MD LAB - MICRO GENERAL ORDERABL ES Performing Organization Address City/[facility]/ZIP Code Phon e Number [address] [address] [facility] Immunology recipient: SOT PRA (Post Tx for Donor Spec Antibody) (02/25/2014 10:54 AM CDT) [facility] Method Time Signature Immunology PRA [facility] Test Name [facility] Immunology Specimen [facility] Result received - [facility] LABS report to follow upon completion. Specimen Anatomical Collection Method Collection Time Receive d Time (Source) Location / / Volume Laterality Blood specimen 02/25/2014 10:54 4 (specimen) AM CDT 10:55 AM CDT Deysi Alicea MD LAB - IMMUNOLOGY ORDERABLES Performing Organization Address City/[facility]/ZIP Code Phon e Number [address] LABS (ABNORMAL) INR (02/25/2014 10:53 AM CDT) P athologist Signature INR 2.39 (H) 0.86 - 1.14 [facility] LABS Specimen Anatomical Collection Method Collection Time Receive d Time (Source) Location / / Volume Laterality Blood specimen 02/25/2014 10:53 4 (specimen) AM CDT 10:54 AM CDT Migel Merchant MD LAB - BLOOD ORDERABLES Performing Organization Address City/[facility] Code Phon e Number [address] LABS (ABNORMAL) Magnesium (02/25/2014 10:53 AM CDT) P athologist Signature Magnesium 1.5 (L) 1.6 - 2.3 [facility] mg/dL [place] [facility] Specimen Anatomical Collection Method Collection Time Receive d Time (Source) Location / / Volume Laterality Blood specimen 02/25/2014 10:53 4 (specimen) AM CDT 10:54 AM CDT eDysi Alicea MD LAB - BLOOD ORDERABLES Performing Organization Address City/State/ZIP Code Phon e Number [address] LABS (ABNORMAL) Phosphorus (02/25/2014 10:53 AM CDT) P athologist Signature Phosphorus 1.3 (L) 2.5 - 4.5 [facility] mg/dL [place] [facility] Specimen Anatomical Collection Method Collection Time Receive d Time (Source) Location / / Volume Laterality Blood specimen 02/25/2014 10:53 4 (specimen) AM CDT 10:54 AM CDT Deysi Alicea MD LAB - BLOOD ORDERABLES Performing Organization Address [facility] Code Phon e Number [facility] [address] LABS Mycophenolic acid (02/25/2014 10:53 AM CDT) Component Value Ref Test Analysis Performed At [facility] gist Range Method Time Signature Last Dose [...] [facility] [place]/ZIP Code Phon e Number [facility] [address] LABS Tacrolimus level (02/25/2014 10:53 AM CDT) [facility] gist Method Time Signature Tacrolimus 02/24/14 ?1999 [facility] Last Dose CORRECTED ON 02/25 AT 1055: PREVIOUSLY REPORTED 1999 [facility] Tacrolimus 9.1 5.0 - [facility] Level 15.0 ug/L [facility] Comment: Tacrolimus Reference Range Kidney [...] Phon e Number [facility] [address] LABS (ABNORMAL) Basic metabolic panel (02/25/2014 10:53 AM CDT) [facility] gist Method Time Signature Sodium 137 133 - 144 [facility] mmol/L [facility] Potassium 4.6 3.4 - 5.3 [facility] mmol/L [facility] Chloride 108 94 - 109 [facility] mmol/L [facility] Carbon Dioxide 19 (L) 20 - 32 [facility] mmol/L [facility] Anion Gap 10 6 - 17 [facility] mmol/L [facility] Glucose 217 (H) 60 - 99 [facility] mg/dL [facility] Urea Nitrogen 13 7 - 30 [facility] mg/dL [facility] Creatinine 1.48 (H) 0.66 - [facility] 1.25 mg/dL [facility] GFR Estimate 48 (L) >60 [facility] mL/min/1.7 [place] m2 CAMPUS LABS GFR Estimate If 58 (L) >60 [facility] Black mL/min/1.7 [place] [address] CAMPUS LABS Calcium 9.6 8.5 - 10.4 [facility] mg/dL [facility] Specimen Anatomical Collection Method Collection Time Receive d Time (Source) Location / / Volume Laterality Blood specimen 02/25/2014 10:53 4 (specimen) AM CDT 10:54 AM CDT Deysi Alicea MD LAB - BLOOD ORDERABLES Performing Organization Address City/State/ZIP Code Phon e Number [address] [address] [facility] (ABNORMAL) CBC with platelets differential (02/25/2014 10:53 AM CDT) [facility] gist Method Time Signature WBC 4.9 4.0 - [facility] 11.0 [facility] 10e9/L CAMPUS LABS RBC Count 2.67 (L) 4.4 - 5.9 [facility] 10e12/L [facility] Hemoglobin 7.8 (L) 13.3 - [facility] 17.7 g/dL [facility] Hematocrit 23.5 (L) 40.0 - [facility] 53.0 % [facility] MCV 88 78 - 100 [facility] fl [facility] MCH 29.2 26.5 - [facility] 33.0 pg [facility] MCHC 33.2 31.5 - [facility] 36.5 g/dL [facility] RDW 14.3 10.0 - [facility] 15.0 % [facility] Platelet Count 179 150 - 450 [facility] 10e9/L [facility] Diff Method Automated [facility] Method [facility] % Neutrophils 89.4 % [facility] % Lymphocytes 3.9 % [facility] % Monocytes 5.1 % [facility] % Eosinophils 1.2 % [facility] % Basophils 0.2 % [facility] % Immature 0.2 % [facility] Granulocytes [facility] Absolute 4.4 1.6 - 8.3 [facility] Neutrophil 10e9/L [facility] Absolute 0.2 (L) 0.8 - 5.3 [facility] Lymphocytes 10e9/L [facility] Absolute 0.3 0.0 - 1.3 [facility] Monocytes 10e9/L [facility] Absolute 0.1 0.0 - 0.7 [facility] Eosinophils 10e9/L [facility] Absolute 0.0 0.0 - 0.2 [facility] Basophils 10e9/L [facility] Abs Immature 0.0 0 - 0.4 [facility] Granulocytes 10e9/L [facility] Specimen Anatomical Collection Method Collection Time Receive d Time (Source) Location / / Volume Laterality Blood specimen 02/25/2014 10:53 4 (specimen) AM CDT 10:54 AM CDT Deysi Alicea MD LAB - BLOOD ORDERABLES Performing Organization Address City/State/ZIP Code Phon e Number [facility] 500 [place] [address] [facility] LAB[facility] documented in this encounter Visit [...] hypotension documented in this encounter Care Teams Expressive Music Therapist Relationship Specialty Start Date End Date Momo Forbes PCP - General Family Practice 01/02/14 [facility] [address] [place] [address] Ingrid Santana, RN Registered Nurse Transplant 02/10/12 10/01/15 documented as of this encounter
--- OUTSIDE RECORDS SUMMARY | 2022-05-19 11:39 | XMS_ITS | Encounter Summary ---
:1950 Author Organization [place] Address [address] [place] [address]. [place] [address] Care Team Providers Name Role Phone Ingrid Santana RN Unavailable Momo Forbes Primary Care Provider Encounter Details Date Type Department Care Team Description 03/18/2014 Orders Only Nephrology Shiva Kahn RN -donor kidney 2nd Floor, Clinic 2A [facility] transplant recipient Tommy Josephensteen [address] [place] [address] [place] [phone] Social History Tobacco Use Types Packs/Day Years [...] transplant documented in this encounter Care Teams Network Design Architect Relationship Specialty Start Date End Date Momo Forbes PCP - General Family Practice 01/02/14 [facility] [address] [place] [address] Ingrid Santana RN Registered Nurse Transplant 02/10/12 10/01/15 documented as of this encounter
--- OUTSIDE RECORDS SUMMARY | 2022-05-19 11:39 | XMS_ITS | Encounter Summary ---
:1950 Author Organization [place] Address [facility] [place] [address] Care Team Providers Name Role Phone Ingrid Santana RN Unavailable Momo Forbes Primary Care Provider Reason for Visit Reason Onset Date Comments [facility] En[facility] Details Date Type Department Care Team Description 03/04/2014 Refill The Transplant Kaitlynn Moreno MD Refill Request 2nd Floor, Clinic 2A [facility] [address] [place] [address] 88 [phone] [place], [place] [phone] (Wo rk) [address] [phone] Social History Tobacco Use Types Packs/Day Years [...] Quantity: 60 [facility] [phone] documented in this encounter Plan of Treatment Not on filedocumented as of this encounter Visit Diagnoses Diagnosis Atrial fibrillation (H) Atrial fibrillation documented in this encounter Care Teams Alcohol Law Enforcement Agent Relationship Specialty Start Date End Date Momo Forbes PCP - General Family Practice 01/02/14 [place] [id number] Ingrid Santana, RN Registered Nurse Transplant 02/10/12 10/01/15 documented as of this encounter
--- OUTSIDE RECORDS SUMMARY | 2022-05-19 11:39 | XMS_ITS | Encounter Summary ---
:1950 Author Organization [place] Address [facility]0 [facility]. [address] Care Team Providers Name Role Phone Ingrid Santana RN Unavailable Momo Forbes Primary Care Provider Reason for Visit Reason Onset Date Comments Transplant 03/08/2014 Elevated tacrolimus level Encounter Details Date Type Department Care Team Description 03/08/2014 Telephone Nephrology Jeff Giordano (Elevated 2nd Floor, Clinic 2A Almita Palomino RN tacrolimus level) Tommy [facility] [address] [address] Social History Tobacco Use Types [...] repeat the level. Leonor Giordano R.N. - [phone] documented in this encounter Plan of Treatment Not on filedocumented as of this encounter Visit Diagnoses Not on filedocumented in this encounter Care Teams Boiling Tub Operator Relationship Specialty Start Date End Date Momo Forbes PCP - General Family Practice 01/02/14 [place] [address] Ingrid Santana, RN Registered Nurse Transplant 02/10/12 10/01/15 documented as of this encounter
--- OUTSIDE RECORDS SUMMARY | 2022-05-19 11:39 | XMS_ITS | Encounter Summary ---
:1950 Author Organization [place] Address [address] [place] [address]. [place] [address] Care Team Providers Name Role Phone Ingrid Santana RN Unavailable Momo Forbes Primary Care Provider Encounter Details Date Type Department Care Team Description 03/01/2014 Orders Only Nephrology Shiva Kahn RN -donor kidney 2nd Floor, Clinic 2A [facility] transplant recipient Tommy Josephensteen [address] [place] [address] [place] [phone] Social History Tobacco Use Types Packs/Day Years [...] transplant documented in this encounter Care Teams Basket Mender Relationship Specialty Start Date End Date Momo Forbes PCP - General Family Practice 01/02/14 [facility] [address] [place] [address] Ingrid Santana RN Registered Nurse Transplant 02/10/12 10/01/15 documented as of this encounter
--- OUTSIDE RECORDS SUMMARY | 2022-05-19 11:39 | XMS_ITS | Encounter Summary ---
:1950 Author Organization [place] Address [facility] [place] [address] Care Team Providers Name Role Phone Ingrid Santana RN Unavailable Momo Raines Primary Care Provider Reason for Visit Reason Comments Consult consult for afib Encounter Details Date Type Department Care Team Description 02/18/2014 Office Visit [facility] Joseph Hernandez (H) (Primary Dx) Heart MD Tommy Wilburn [facility] Building [place] 4th Floor, Clinic 4B [address] [facility] [address] [phone] [place], [place] (Work) [address] [phone] Social History Tobacco Use Types Packs/Day Years [...] Years of Education: 14 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
--- OUTSIDE RECORDS SUMMARY | 2022-05-19 11:39 | XMS_ITS | Encounter Summary ---
:1950 Author Organization [place] Address [address] [place] [address]. [place] [address] Care Team Providers Name Role Phone Ingrid Santana RN Unavailable Momo Forbes Primary Care Provider Encounter Details Date Type Department Care Team Description 02/15/2014 Orders Only Nephrology Shiva Kahn RN Kidney replaced by transplant; 2nd Floor, Clinic 2A [facility] S/P kidney transplant Tommy Wangensteen [address] [place] [address] [place] [phone] Social History Tobacco Use Types Packs/Day Years [...] transplant documented in this encounter Care Teams Payable Processor Relationship Specialty Start Date End Date Momo Forbes PCP - General Family Practice 01/02/14 [facility] [address] [place] [address] Ingrid Santana, RN Registered Nurse Transplant 02/10/12 10/01/15 documented as of this encounter
--- OUTSIDE RECORDS SUMMARY | 2022-05-19 11:39 | XMS_ITS | Encounter Summary ---
:1950 Author Organization [place] Address [facility] [place] [address] Care Team Providers Name Role Phone Ingrid Santana RN Unavailable Momo Forbes Primary Care Provider Encounter Details Date Type Department Care Team Description 02/18/2014 Orders Only The Transplant Deysi Burns, Kidney replaced by transplan t; 2nd Floor, Clinic 2A S/P kidney transplant [facility] [address] [place] [address] [place] [address] 88 [place] [address] [place], [place] [phone] (Wo rk) [address] [phone] Social History Tobacco Use Types Packs/Day Years [...] 1.5 (L) 1.6 - 2.3 [facility] mg/dL [place] [facility] Specimen Anatomical Collection Method Collection Time Receive d Time (Source) Location / / Volume Laterality Blood specimen 02/18/2014 8:56 AM 014 8:57 (specimen) CDT AM CDT Kaitlynn Leon MD LAB - BLOOD ORDERABLES Performing Organization Address City/[facility]/ZIP Code Phon e Number [address] LABS (ABNORMAL) Phosphorus (02/18/2014 8:56 AM CDT) athologist Signature Phosphorus 1.9 (L) 2.5 - 4.5 [facility] mg/dL [place] [facility] Specimen Anatomical Collection Method Collection Time Receive d Time (Source) Location / / Volume Laterality Blood specimen 02/18/2014 8:56 AM 014 8:57 (specimen) CDT AM CDT Kaitlynn Leon MD LAB - BLOOD ORDERABLES Performing Organization Address City/[facility]/ZIP Code Phon e Number [address] LABS Tacrolimus level (02/18/2014 8:56 AM CDT) Patholo gist Method Time Signature Tacrolimus Last 02/12/14 [facility] Dose 1930 [facility] LABS Tacrolimus 14.1 5.0 - [facility] Level 15.0 ug/L [facility] LABS Comment: Tacrolimus Reference Range Kidney Transplant [...] Phon e Number [facility] 500 [place] [address] [facility] LABS (ABNORMAL) CBC with platelets differential (02/18/2014 8:56 AM CDT) Patholo gist Method Time Signature WBC 6.3 4.0 - [facility] 11.0 [facility] 10e9/L [place] [facility] RBC Count 2.59 (L) 4.4 - 5.9 [facility] 10e12/L [facility] LABS Hemoglobin 7.8 (L) 13.3 - [facility] 17.7 g/dL [facility] LABS Hematocrit 23.7 (L) 40.0 - [facility] 53.0 % [facility] LABS MCV 92 78 - 100 [facility] fl [facility] LAB[facility] MCH 30.1 26.5 - [facility] 33.0 pg [facility] LABS MCHC 32.9 31.5 - [facility] 36.5 g/dL [facility]S RDW 14.7 10.0 - [facility] 15.0 % [facility] Platelet Count 140 (L) 150 - 450 [facility] 10e9/L [facility] LABS Diff Method Automated [facility] Method [facility] LABS % Neutrophils 84.7 % [facility] LABS % Lymphocytes 3.8 % [facility] LABS % Monocytes 6.0 % [facility] LABS % Eosinophils 4.8 % [facility] LABS % Basophils 0.5 % [facility] LABS % Immature 0.2 % [facility] Granulocytes [facility] LAB[facility] Absolute 5.3 1.6 - 8.3 [facility] Neutrophil 10e9/L [facility] LABS Absolute 0.2 (L) 0.8 - 5.3 [facility] Lymphocytes 10e9/L [facility] LABS Absolute 0.4 0.0 - 1.3 [facility] Monocytes 10e9/L [facility] LABS Absolute 0.3 0.0 - 0.7 [facility] Eosinophils 10e9/L [facility] LAB[facility] Absolute 0.0 0.0 - 0.2 [facility] Basophils 10e9/L [facility] Abs Immature 0.0 0 - 0.4 [facility] Granulocytes 10e9/L [facility] LABS Specimen Anatomical Collection Method Collection Time Receive d Time (Source) Location / / Volume Laterality Blood specimen 02/18/2014 8:56 AM 014 8:57 (specimen) CDT AM CDT Kaitlynn Leon MD LAB - BLOOD ORDERABLES Performing Organization Address City/State/ZIP Code Phon e Number [facility] 500 [place], [place] [id number] [place] [address] LABS (ABNORMAL) Basic metabolic panel (02/18/2014 8:56 AM CDT) Patholo gist Method Time Signature Sodium 141 133 - 144 [facility] mmol/L [facility] LABS Potassium 5.2 3.4 - 5.3 [facility] mmol/L [facility] LABS Chloride 112 (H) 94 - 109 [facility] mmol/L [facility] LABS Carbon Dioxide 18 (L) 20 - 32 [facility] mmol/L [facility] LABS Anion Gap 11 6 - 17 [facility] mmol/L [facility] LABS Glucose 185 (H) 60 - 99 [facility] mg/dL [facility] LABS Urea Nitrogen 24 7 - 30 [facility] mg/dL [facility] LABS Creatinine 1.81 (H) 0.66 - [facility] 1.25 mg/dL [facility] LABS GFR Estimate 38 (L) >60 [facility] mL/min/1.7 [place] m2 [place] [facility] GFR Estimate If 46 (L) >60 [facility] Black mL/min/1.7 [place] m2 [place] [facility] Calcium 9.4 8.5 - 10.4 [facility] mg/dL [facility] Specimen Anatomical Collection Method Collection Time Receive d Time (Source) Location / / Volume Laterality Blood specimen 02/18/2014 8:56 AM 014 8:57 (specimen) CDT AM CDT Kaitlynn Leon MD LAB - BLOOD ORDERABLES Performing Organization Address City/[facility] Code Phon e Number [address] LABS (ABNORMAL) INR (02/18/2014 8:56 AM CDT) P athologist Signature INR 2.13 (H) 0.86 - 1.14 [facility] LABS Specimen Anatomical Collection Method Collection Time Receive d Time (Source) Location / / Volume Laterality Blood specimen 02/18/2014 8:56 AM 014 8:57 (specimen) CDT AM CDT Kaitlynn Leon MD LAB - BLOOD ORDERABLES Performing Organization Address City/[facility] Code Phon e Number [address] LABS documented in this encounter Visit Diagnoses Diagnosis Kidney replaced by transplant S/P kidney transplant Kidney replaced by transplant documented in this encounter Care Teams Tipple Tender Relationship Specialty Start Date End Date Momo Forbes PCP - General Family Practice 01/02/14 [facility] [address] [place] [address] Ingrid Santana, RN Registered Nurse Transplant 02/10/12 10/01/15 documented as of this encounter
--- OUTSIDE RECORDS SUMMARY | 2022-05-19 11:39 | XMS_ITS | Encounter Summary ---
:1950 Author Organization [place] Address [address] [place] [address] Care Team Providers Name Role Phone Ingrid Santana RN Unavailable Momo Forbes Primary Care Provider Encounter Details Date Type Department Care Team Description 02/19/2014 Orders Only [facility], [facility], [facility] [place] [address] [phone] [place] [address] 663 [place] [address] (Wo rk) Social History Tobacco [...] Results Tacrolimus level (03/19/2014 9:05 AM CDT) [facility] Method Time Signature Tacrolimus Last 03/18/14 [facility] Dose 2100 [facility] Tacrolimus 13.1 5.0 - [facility] Level 15.0 ug/L [facility] Comment: Tacrolimus Reference Range Kidney Transplant [...] Phon e Number [facility] 500 [place], [place] [phone] [place] [address] [facility] Tacrolimus level (03/12/2014 9:40 AM CDT) [facility] gist Method Time Signature Tacrolimus Not Provided [facility] Last Dose [facility] Tacrolimus 7.3 5.0 - [facility] Level 15.0 ug/L [facility] Comment: Tacrolimus Reference Range Kidney Transplant [...] Phon e Number [facility] [address] [place], [place] [phone] [place] [address] [facility] Tacrolimus level (03/08/2014 10:15 AM CDT) [facility] gist Method Time Signature Tacrolimus Last 03/07/14 [facility] Dose 2000 [facility] Tacrolimus 6.1 5.0 - [facility] Level 15.0 ug/L [facility] Comment: Tacrolimus Reference Range Kidney Transplant [...] Phon e Number [facility] [address] [place], [place] [phone] [place] [address] [facility] Tacrolimus level (03/06/2014 5:13 PM CDT) [facility] gist Method Time Signature Tacrolimus Last 1400 [facility] Dose 03/05/14 [facility] Tacrolimus 11.3 5.0 - [facility] Level 15.0 ug/L [facility] Comment: Tacrolimus Reference Range Kidney Transplant [...] Phon e Number [facility] [address] [place], [place] [phone] [place] [address] [facility] Tacrolimus level (03/01/2014 8:10 AM CDT) [facility] gist Method Time Signature Tacrolimus Last 02/28/14 [facility] Dose 1930 [facility] Tacrolimus 10.6 5.0 - [facility] Level 15.0 ug/L [facility] Comment: Tacrolimus Reference Range Kidney Transplant [...] LAB - BLOOD ORDERABLES Performing Organization Address City/State/[facility] Code Phon e Number [facility] [address] [place], [place] [phone] [place] [address] [facility] Tacrolimus level (02/27/2014 8:15 AM CDT) [facility] gist Method Time Signature Tacrolimus Last 02/26/14 [facility] Dose 2000 [facility] Tacrolimus 11.4 5.0 - [facility] Level 15.0 ug/L [facility] Comment: Tacrolimus Reference Range Kidney Transplant [...] - BLOOD ORDERABLES Performing Organization Address City/[facility] Code Phon e Number [facility] 500 [place], [place] [phone] [place] [address] LABS HLA Lukasz Class II Single Antigen (02/25/2014 10:43 AM CDT) Component Value Ref Test Analysis Performed At [facility] gist Range Method Time Signature SA2 [...] City/State/ZIP Code Phon e Number [facility] Immunology/[place], [place] [address] [facility] 500 [facility] [address] Building, Room 3-580 HISTOTRAC HLA Lukasz Class I Single Antigen (02/25/2014 10:43 AM CDT) Component Value Ref Test Analysis Performed At [facility] gist Range Method Time Signature SA1 [...] - IMMUNOLOGY ORDERABLES Performing Organization Address City/[facility] [facility]/ZIP Code Phon e Number [facility] Immunology/[place], [place] [address] [facility] 500 [facility] [address] Building, Room 3-580 HISTOTRAC PRA Interfering Substance SCR (02/25/2014 10:43 AM CDT) Component Value Ref Test Analysis Performed At [facility] gist Range Method Time Signature Interfering [...] Code Phon e Number [facility] Immunology/Histocompatabil [place], [place] [address] [facility] 500 [facility] [address] Building, Room 3-580 HISTOTRAC Tacrolimus level (02/21/2014 8:45 AM CDT) [facility] gist Method Time Signature Tacrolimus Last 02/20/14 [facility] Dose 2000 [facility] Tacrolimus 7.9 5.0 - [facility] Level 15.0 ug/L [facility] Comment: Tacrolimus Reference Range Kidney Transplant [...] Phon e Number [facility] [address] [place] [address] [facility] LABS documented in this encounter Visit Diagnoses Not on filedocumented in this encounter Care Teams Fuller Brush Man Relationship Specialty Start Date End Date Momo Forbes PCP - General Family Practice 01/02/14 [facility] [address] [place] [address] Ingrid Santana, RN Registered Nurse Transplant 02/10/12 10/01/15 documented as of this encounter
--- OUTSIDE RECORDS SUMMARY | 2022-05-19 11:39 | XMS_ITS | Encounter Summary ---
:1950 Author Organization [place] Address [address] [place] [address]. [place] [address] Care Team Providers Name Role Phone Ingrid Santana RN Unavailable Momo Forbes Primary Care Provider Encounter Details Date Type Department Care Team Description 03/19/2014 Orders Only Nephrology Shiva Kahn RN -donor kidney 2nd Floor, Clinic 2A [facility] transplant recipient Tommy Josephensteen [address] [place] [address] [place] [phone] Social History Tobacco Use Types Packs/Day Years [...] transplant documented in this encounter Care Teams Bar Manager Relationship Specialty Start Date End Date Momo Forbes PCP - General Family Practice 01/02/14 [facility] [address] [place] [address] Ingrid Santana RN Registered Nurse Transplant 02/10/12 10/01/15 documented as of this encounter
--- OUTSIDE RECORDS SUMMARY | 2022-05-19 11:39 | XMS_ITS | Encounter Summary ---
:1950 Author Organization [place] Address [facility] [place] [address] Care Team Providers Name Role Phone Ingrid Santana RN Unavailable Momo Forbes Primary Care Provider Reason for Visit Reason Onset Date Comments Pre Visit Planning - Done 03/08/2014 Appointment on 03/11/2014 Encounter Details Date Type Department Care Team Description 03/08/2014 Telephone Nephrology Alexandria Caldera, Pre Visit Planning - 2nd Floor, Clinic 2A STOCK DRIVER Done (Appointment on Sanders Akila 03/11/20 14) [address] [address] Social History Tobacco Use Types [...] bring list of medications. Toldpatient to call [phone] if any questions or needs to reschedule. Alexandria Caldera CMA documented in this encounter Plan of Treatment Not on filedocumented as of this encounter Visit Diagnoses Not on filedocumented in this encounter Care Teams Commutator Tester Relationship Specialty Start Date End Date Momo Forbes PCP - General Family Practice 01/02/14 [place] [address] Ingrid Santana, RN Registered Nurse Transplant 02/10/12 10/01/15 documented as of this encounter
--- OUTSIDE RECORDS SUMMARY | 2022-05-19 11:39 | XMS_ITS | Encounter Summary ---
:1950 Author Organization [place] Address [address] [place] [address] Care Team Providers Name Role Phone Ingrid Santana RN Unavailable Momo Forbes Primary Care Provider Reason for Visit Auth/Cert - Closed Specialty Diagnoses / Procedures Referred By Contact Refer red To Contact Surgery Diagnoses Status Post Kidney Transplant Uu Periop Procedures COMBINED CYSTOSCOPY, REMOVE STENT(S) 500 [place] [address] Phone: Fax: Referral ID Status Reason Start Date Expiration Date Visits Requ ested Visits Authorized [id number] Closed 1 1 Encounter Details Date Type Department Care Team Description 03/11/2014 Hospital Encounter [facility] Mayur, Migel Evans, Same Day Surgery [facility] 420 [facility] 500 [facility] 195 [place] [address] [place] [address] (Wo rk) Social History Tobacco Use Types [...] 8:46 CDT AM CDT Migel Merchant MD [facility] POCT Performing Organization Address City/State/ZIP Code Phon e Number [facility] POINT OF CARE TEST, GLUCOSE POINT OF CARE TEST, GLUCOSE documented in this encounter Visit Diagnoses Not on filedocumented in this encounter Active and Recently Administered Medications Care Teams Clinical Systems Educator Relationship Specialty Start Date End Date Momo Forbes PCP - General Family Practice 01/02/14 [facility] [address] [place] [address] Ingrid Santana, RN Registered Nurse Transplant 02/10/1216 documented as of this encounter
--- OUTSIDE RECORDS SUMMARY | 2022-05-19 11:39 | XMS_ITS | Encounter Summary ---
:1950 Author Organization [place] Address [address] [place] [address]. [place] [address] Care Team Providers Name Role Phone Ingrid [...] 12-lead, tracing only (02/18/2014 9:53 AM CDT) [facility] gist Method Time Signature Interpretation [...] filedocumented in this encounter Care Teams Mobile Therapist Relationship Specialty Start Date End Date Momo Forbes PCP - General Family Practice 01/02/14 [facility] [address] [place] [address] Ingrid Santana, RN Registered Nurse Transplant 02/10/12 10/01/15 documented as of this encounter
--- OUTSIDE RECORDS SUMMARY | 2022-05-19 11:39 | XMS_ITS | Encounter Summary ---
:1950 Author Organization [place] Address [facility]0 [place] [address] Care Team Providers Name Role Phone Ingrid Santana RN Unavailable Momo Forbes Primary Care Provider Reason for Visit Reason Onset Date Comments Pt. Information/instruction 03/14/2014 Encounter Details Date Type Department Care Team Description 03/14/2014 Telephone [facility] Beto Womack Pt . Interventional Radio martha Dangelo RN Information/instructio 500 [place] [address] Social History Tobacco Use Types [...] filedocumented in this encounter Care Teams Director Biologics Relationship Specialty Start Date End Date Momo Forbes PCP - General Family Practice 01/02/14 [facility] [address] [place] [address] Ingrid Santana RN Registered Nurse Transplant 02/10/1210/16 documented as of this encounter
--- OUTSIDE RECORDS SUMMARY | 2022-05-19 11:39 | XMS_ITS | Encounter Summary ---
:1950 Author Organization [place] Address [facility] [place] [address] Care Team Providers Name Role Phone Ingrid Santana RN Unavailable Momo Forbes Primary Care Provider Reason for Visit Reason Onset Date Comments Previsit 02/20/2014 Encounter Details Date Type Department Care Team Description 02/20/2014 Telephone Transplant Surgery C nanda Merchant, Migel Evans MD Previsit 2nd Floor, Clinic 2A [address] [address] [facility] [place] [phone] Social History Tobacco Use Types Packs/Day Years [...] on filedocumented in this encounter Care Teams Press Department Manager Relationship Specialty Start Date End Date Momo Forbes PCP - General Family Practice 01/02/14 [place] [id number] Ingrid Santana, RN Registered Nurse Transplant 02/10/12 10/01/15 documented as of this encounter
--- OUTSIDE RECORDS SUMMARY | 2022-05-19 11:39 | XMS_ITS | Encounter Summary ---
:1950 Author Organization [place] Address [address] [place] [address] Care Team Providers Name Role Phone Ingrid Santana RN Unavailable Momo Forbes Primary Care Provider Encounter Details Date Type Department Care Team Description 03/11/2014 Anesthesia Event [facility] Aly Esquivel MD PeriOp Services 420 [facility] [address] [phone] [place], [place] [phone] (Wo rk) Anesthesia Record Procedure Summary Procedure [...] benefits and alternatives discussed with: patient or financial representative. Possibility of blood products discussed. Procedures [...] on filedocumented in this encounter Care Teams Cold Rolling Coordinator Relationship Specialty Start Date End Date Momo Forbes PCP - General Family Practice 01/02/14 [facility] [address] [place] [address] Ingrid Santana, RN Registered Nurse Transplant 02/10/12 10/01/15 documented as of this encounter
--- OUTSIDE RECORDS SUMMARY | 2022-05-19 11:39 | XMS_ITS | Encounter Summary ---
:1950 Author Organization [place] Address [facility] [place] [address] Care Team Providers Name Role Phone Ingrid Santana RN Unavailable Momo Forbes Primary Care Provider Encounter Details Date Type Department Care Team Description 02/18/2014 Orders Only Nephrology Shiva Kahn RN -donor kidney transplant recipie nt (Primary Dx); 2nd Floor, Clinic 2A [facility] Kidney replaced by transplant; Tommy Wangensteen 420 [facility] kidney transplant Building [address] [place] [phone] Social History Tobacco Use Types Packs/Day Years [...] documented in this encounter Care Teams Supervisor Film Processing Relationship Specialty Start Date End Date Forbes, Ton PCP - General Family Practice 01/02/14 [facility] [address] [place] [address] Ingrid Santana, RN Registered Nurse Transplant 02/10/12 10/01/15 documented as of this encounter
--- OUTSIDE RECORDS SUMMARY | 2022-05-19 11:39 | XMS_ITS | Encounter Summary ---
:1950 Author Organization [place] Address [address] [place] [address] Care Team Providers Name Role Phone Ingrid Santana RN Unavailable Momo Forbes Primary Care Provider Encounter Details Date Type Department Care Team Description 03/15/2014 Hospital Encounter [facility] Susy Cole, Lymphocele Unit 2A [facility] [address] [place] [phone] [place], [place] [address] (Wo rk) Social History Tobacco Use Types [...] until healed, wash daily with antibacterial soap. [facility] INTERVENTIONAL RADIOLOGY DEPARTMENT Procedure Physician Andrea Can Date of procedure Telephone numbers: [phone] Tuesday-Tuesday 8:00 am to 4:30 pm [phone] After 4:30 pm Tuesday-Tuesday, Weekends & Holidays. Ask for the Interventional Radiologist stone banker. Someone is available 24 hours/day [facility] toll free number: Tuesday-Tuesday 8:00 am [...] CCRN March 15, 2014 9:20 AM Pager: [phone] Nano Cline NP - 03/15/2014 8:58 AM CDT Discussed order with Dr Merchant today. He would like drain placement if the fluid appears thin. If itappears to be a hematoma then aspiration only. D/w Drea resident and IR staff doing the case. Thanks [facility] INSTALLER METAL FLOORING ([phone]) Jeanette Lopez RN - 03/15/2014 8:14 AM CDT Prepped and consented, INR 1.1 FSBS is 219 documented in this encounter Procedure Notes Drea Glasgow MD - 03/15/2014 9:23 AM CDT Interventional Radiology Brief Post Procedure Note Pre Procedure Diagnosis: perinephric fluid collection Post Procedure Diagnosis: Same Procedure: Aspiration of RLQ fluid collection over the tranplant kidney Proceduralist: Drea Glasgow MD, Andrea Gibbons PA-C Turret Press Operator: None Time Out: Prior to the start [...] Celina Cole MD [facility] POCT Performing Organization Address City/State/ZIP Code [...] Dr. Yossi Cox Resident: Dr. Drea Glasgow Turret Press Operator: Andrea Gibbons PA-C. Medications: 1% lidocaine and [...] Dr. Yossi Cox Resident: Dr. Drea Glasgow Turret Press Operator: Andrea Gibbons PA-C. Medications: 1% lidocaine and [...] Component Value Ref Test Analysis Performed At [facility] gist Range Method Time Signature Specimen Aspirate [facility] LABS Gram Stain Many PMNs seen [facility] No organisms seen MICROBIOLOGY Micro Report FINAL [facility] Status 03/15/2014 MICROBIOLOGY Specimen Anatomical Collection Method Collection Time Receive d Time (Source) Location / / Volume Laterality 03/15/2014 9:05 AM 4 9:59 CDT AM CDT Celina Cole MD LAB - MICRO GENERAL ORDERABL ES Performing Organization Address City/[facility] Code Phon e Number [address] LABS [facility] MICROBIOLOGY (ABNORMAL) Fluid Culture (03/15/2014 9:05 AM CDT) Component Value Ref Test Analysis Performed At [facility] Range Method Time Signature Specimen Aspirate [facility] Description [facility] LABS Culture Micro Light growth Coagulase negat jo Staphylococcus Susceptibility testing not [facility] routinely done MICROBIOLOGY (A) Micro Report FINAL 03/18/2014 [facility] Status MICROBIOLOGY Specimen Anatomical Collection Method Collection Time Receive d Time (Source) Location / / Volume Laterality Fluid specimen SPECIMEN OBTAINED 03/15/2014 9:05 AM 9:59 (specimen) BY ASPIRATION / CDT AM CDT Unknown Celina Cole MD LAB - MICRO GENERAL ORDERABL ES Performing Organization Address City/[facility] Code Phon e Number [address] LABS [facility] MICROBIOLOGY Triglyceride Fluid (03/15/2014 9:05 AM CDT) [facility] Method Time Signature Triglyceride Aspirate [facility] Fluid Source PERINEPHRIC [facility] LABS Triglyceride 94 mg/dL [facility] Fluid [facility] LABS Comment: No reference ranges have been [...] Phon e Number [facility] 500 [place], [place] [phone] [place] [address] LABS Cell count with differential fluid (03/15/2014 9:05 AM CDT) Component Value Ref Test Analysis Performed At Patholo gist Range Method Time Signature Body Fluid Aspirate [facility] Analysis Source PERINEPHRIC [facility] LABS Color Fluid Brown [facility] LABS Appearance Turbid [facility] Fluid [facility] LABS RBC Fluid << Do Not /uL [facility] Report >> [facility] LABS WBC Fluid 43484 /uL [facility] LABS % Neutrophils 97 % [facility] Fluid [facility] LABS % Lymphocytes 2 % [facility] Fluid [facility] LABS % Eosinophils 1 % [facility] Fluid [facility] LABS Specimen Anatomical Collection Method Collection Time Receive d Time (Source) Location / / Volume Laterality SPECIMEN OBTAINED 03/15/2014 9:05 AM 02/20 9:56 BY ASPIRATION / CDT AM CDT Unknown Celina Cole MD LAB - BODY FLUIDS ORDERABLES Performing Organization Address City/State/ZIP Code Phon e Number [facility] [address] LABS Lactate dehydrogenase fluid (03/15/2014 9:05 AM CDT) Component Value Ref Test Analysis Performed At [facility] gist Range Method Time Signature LD Fluid Source Aspirate [facility] PERINEPHRIC [facility] LABS Lactate Canceled, Test credited U/L [facility] [...] Phon e Number [facility] [address] LABS Creatinine fluid (03/15/2014 9:05 AM CDT) Patholo gist Method Time Signature Creatinine Aspirate [facility] Fluid Source PERINEPHRIC [facility] LABS Creatinine 1.5 mg/dL [facility] Fluid [facility] LABS Comment: No reference ranges have been [...] - BODY FLUIDS ORDERABLES Performing Organization Address City/[facility]/ZIP Code Phon e Number [facility] 500 [place] [address] [facility] LABS INR point of care (03/15/2014 8:06 AM CDT) P athologist Signature INR Point of 1.1 0.86 - POINT OF CARE Care 1.14 TEST, HANDHELD METER Specimen Anatomical Collection Method Collection Time Receive d Time (Source) Location / / Volume Laterality 03/15/2014 8:06 AM 4 8:30 CDT AM CDT Celina Cole MD LAB - BLOOD ORDERABLES Performing Organization Address City/[facility]/ZIP Code Phon e Number [facility] [...] LAB - BEAKER POCT Performing Organization Address City/[facility]/ZIP Code Phon e Number [facility] [...] Jeanette Lopez, RN) Routine, 3 g, Intravenous, PRE-OP/PRE-IL OCEDURE, Starting on Tue03/15/14 at 0734, For [...] Intra-procedure documented in this encounter Care Teams Die Set Up Worker Relationship Specialty Start Date End Date Momo Forbes PCP - General Family Practice 01/02/14 [facility] [address] [place] [address] Ingrid Santana, RN Registered Nurse Transplant 02/10/12 10/01/15 documented as of this encounter
--- OUTSIDE RECORDS SUMMARY | 2022-05-19 11:39 | XMS_ITS | Encounter Summary ---
:1950 Author Organization [place] Address [address] [place] [address] Care Team Providers Name Role Phone Ingrid Santana RN Unavailable Momo Forbes Primary Care Provider Encounter Details Date Type Department Care Team Description 03/22/2014 Orders Only [facility], [facility], [facility] jm [place] [address] [phone] [place] [address] 402 [place] [address] (Wo rk) Social History Tobacco [...] Results Tacrolimus level (04/19/2014 8:40 AM CDT) [facility] Method Time Signature Tacrolimus Not Provided [facility] Last Dose [facility] Tacrolimus 10.3 5.0 - [facility] Level 15.0 ug/L [facility] Comment: Tacrolimus Reference [...] e Number [facility] 500 [place], [place] [id number] [place] [address] [facility] Tacrolimus level (04/16/2014 8:22 AM CDT) Patholo gist Method Time Signature Tacrolimus Not Provided [facility] Last Dose [facility] Tacrolimus 9.1 5.0 - [facility] Level 15.0 ug/L [facility] Comment: Tacrolimus Reference [...] e Number [facility] 500 [place], [place] [id number] [place] [address] [facility] Tacrolimus level (04/11/2014 8:40 AM CDT) [facility] gist Method Time Signature Tacrolimus Last 04/10/14 [facility] Dose 19:00 [facility] Tacrolimus 14.4 5.0 - [facility] Level 15.0 ug/L [facility] Comment: Tacrolimus Reference [...] e Number [facility] 500 [place], [place] [phone] [place] [address] [facility] Tacrolimus level (04/09/2014 8:45 AM CDT) [facility] gist Method Time Signature Tacrolimus Last 04/08/14 [facility] Dose 2000 [facility] Tacrolimus 11.7 5.0 - [facility] Level 15.0 ug/L [facility] Comment: Tacrolimus Reference [...] e Number [facility] 500 [place], [place] [phone] [place] [address] [facility] Tacrolimus level (04/05/2014 9:40 AM CDT) [facility] gist Method Time Signature Tacrolimus Last 1999 [facility] Dose 04/04/14 [facility] Tacrolimus 9.7 5.0 - [facility] Level 15.0 ug/L [facility] Comment: Tacrolimus Reference [...] e Number [facility] 500 [place] [address] [facility] (ABNORMAL) Tacrolimus level (03/28/2014 8:30 AM CDT) [facility] gist Method Time Signature Tacrolimus Last 03/27/14 [facility] Dose 1900 [facility] Tacrolimus 15.8 (H) 5.0 - [facility] Level 15.0 ug/L [facility] Comment: Tacrolimus Reference [...] e Number [facility] 500 [place], [place] [id number] [place] [address] [facility] Tacrolimus level (03/26/2014 9:18 AM CDT) [facility] gist Method Time Signature Tacrolimus Last 03/25/14 [facility] Dose 1900 [facility] Tacrolimus 9.2 5.0 - [facility] Level 15.0 ug/L [facility] Comment: Tacrolimus Reference [...] e Number [facility] 500 [place], [place] [phone] [place] [address] [facility] Tacrolimus level (03/14/2014 9:00 AM CDT) [facility] gist Method Time Signature Tacrolimus Last 1999 [facility] Dose 03/13/14 [facility] Tacrolimus 9.5 5.0 - [facility] Level 15.0 ug/L [facility] Comment: Tacrolimus Reference [...] e Number [facility] 500 [place], [place] [phone] [place] [address] LABS documented in this encounter Visit Diagnoses Not on filedocumented in this encounter Care Teams City Manager Relationship Specialty Start Date End Date Momo Forbes PCP - General Family Practice 01/02/14 [facility] [address] [place] [address] Ingrid Santana RN Registered Nurse Transplant 02/10/12 10/01/15 documented as of this encounter
--- OUTSIDE RECORDS SUMMARY | 2022-05-19 11:39 | XMS_ITS | Encounter Summary ---
:1950 Author Organization [place] Address [address] [place] [address]. [place] [address] Care Team Providers Name Role Phone Ingrid Santana RN Unavailable Momo Forbes Primary Care Provider Reason for Visit Reason Comments Surgical Followup Post op for kidney transplan t POD 16 Encounter Details Date Type Department Care Team Description 02/18/2014 Office Visit Transplant Surgery Migel Merchant S/P jamari cutler transplant (Primary Dx); Clinic MD Nathan Postop check; 2nd Floor, Clinic 2A 420 [place] Immunosuppression (H); [facility] 1 95 Atrial fibrillation (H) Building [address] [place] [phone] [place] [address] [place], [place] (Work) [phone] Social History Tobacco Use Types Packs/Day Years [...] appearing no apparent distress Drain in place. [place] in place. Hematology: Recent Labs Lab Test [...] Stent: out in ~ 4 weeks 4. [place]. Follow up next Tuesday for staple removal [...] fibrillation documented in this encounter Care Teams Sanding Line Operator Relationship Specialty Start Date End Date Momo Forbes PCP - General Family Practice 01/02/14 [facility] [address] [place] [address] Ingrid Santana, RN Registered Nurse Transplant 02/10/12 10/01/15 documented as of this encounter
--- OUTSIDE RECORDS SUMMARY | 2022-05-19 11:39 | XMS_ITS | Encounter Summary ---
:1950 Author Organization [employer] Address [address] [place] [address]. [place] [address] Care Team Providers Name Role Phone Ingrid Santana RN Unavailable Momo Forbes Primary Care Provider Encounter Details Date Type Department Care Team Description 03/13/2014 Orders Only Nephrology Shiva Kahn, Atrial fibrillation (H); 2nd Floor, Clinic 2A RN -donor kidney transplant stefani Wilburn [address] [phone] [phone] Social History Tobacco Use Types Packs/Day Years [...] transplant documented in this encounter Care Teams Security Officer Supervisor Relationship Specialty Start Date End Date Momo Forbes PCP - General Family Practice 01/02/14 [facility] [address] [place] [address] Ingrid Santana, RN Registered Nurse Transplant 02/10/12 10/01/15 documented as of this encounter
--- OUTSIDE RECORDS SUMMARY | 2022-05-19 11:39 | XMS_ITS | Encounter Summary ---
:1950 Author Organization [place] Address [facility] [place] [address] Care Team Providers Name Role Phone Ingrid Santana RN Unavailable Momo Forbes Primary Care Provider Encounter Details Date Type Department Care Team Description 02/18/2014 Orders Only Nephrology Shiva Kahn, -donor kidney transp lant recipient (Primary Dx); 2nd Floor, Clinic 2A RN High risk medications (not anticoagulant s) long-term use; Tommy Wilburn [facility] CATY HIGGINS watermelon harvesting supervisor (current) use of anticoagulant s [place] [id number] [place] [phone] Social History Tobacco Use Types Packs/Day Years [...] s documented in this encounter Care Teams Marketing Administrator Relationship Specialty Start Date End Date Momo Forbes PCP - General Family Practice 01/02/14 [facility] [address] [place] [address] Ingrid Santana, RN Registered Nurse Transplant 02/10/12 10/01/15 documented as of this encounter
--- OUTSIDE RECORDS SUMMARY | 2022-05-19 11:39 | XMS_ITS | Encounter Summary ---
:1950 Author Organization [place] Address [address] [facility] [place] [address] Care Team Providers Name Role Phone Ingrid Santana RN Unavailable Momo Forbes Primary Care Provider Reason for Referral Specialty Diagnoses / Procedures Referred By Contact Refer red To Contact Migel Merchant MD [address] [phone] Referral ID Status Reason Start Date Expiration Date Visits Requ ested Visits Authorized Scheduling Instructions ANTICOAGULATION CLINIC COLLABORATIVE PRA CTICE AGREEMENT The following represents a collaborative practice agreement among the physicians of the Clinic and staff of the Anticoagulat ion Clinic Service ([facility]) Physicians shall: 1. Refer patients requiring anticoagulat ion to a specialty service staffed by personnel of Pharmacy Services and super vised by Clinic physicians. 2. Respond to questions and referrals fr pharmacy staff regarding delinquent or difficult patients. 3. Inform the [facility] staff when a new patie nt [...] of adverse or sub-therapeutic effects including at [facility] the following: Has the patient experienced [...] Care Team Description 03/29/2014 Orders Only [facility] Migel Merchant fibrillation (H) (Primary Dx); Anticoagulation Clin ic MD Nathan lobsterman (current) use of anticoagulant s [address] [place], [place] [address] [place] [phone] [place] [address] Social History Tobacco Use Types Packs/Day Years [...] Routine Atrial fibri llation (H) Ordered: 03/29/2014 Invoice Coder (Current) Use Of Anticoagulants documented as of this encounter Visit Diagnoses Diagnosis Atrial fibrillation (H) - Primary Atrial fibrillation custodial (current) use of anticoagulant s Long-term (current) use of anticoagulant s documented in this encounter Care Teams Landing Scaler Relationship Specialty Start Date End Date Momo Forbes PCP - General Family Practice 01/02/14 [facility] [address] [place] [address] Ingrid Santana, RN Registered Nurse Transplant 02/10/12 10/01/15 documented as of this encounter
--- OUTSIDE RECORDS SUMMARY | 2022-05-19 11:39 | XMS_ITS | Encounter Summary ---
:1950 Author Organization [place] Address [address] [place] [address]. [place] [address] Care Team Providers Name Role Phone Ingrid Santana RN Unavailable Momo Forbes Primary Care Provider Encounter Details Date Type Department Care Team Description 03/14/2014 Orders Only Nephrology Shiva Kahn RN -donor kidney 2nd Floor, Clinic 2A [facility] transplant recipient Tommy Josephensteen [address] [place] [address] [place] [phone] Social History Tobacco Use Types Packs/Day Years [...] transplant documented in this encounter Care Teams Long Chain Dyeing Machine Operator Relationship Specialty Start Date End Date Momo Forbes PCP - General Family Practice 01/02/14 [facility] [address] [place] [address] Ingrid Santana RN Registered Nurse Transplant 02/10/12 10/01/15 documented as of this encounter
--- OUTSIDE RECORDS SUMMARY | 2022-05-19 11:40 | XMS_ITS | Encounter Summary ---
:1950 Author Organization [place] Address [facility] [place] [address] Care Team Providers Name Role Phone Ingrid Santana RN Unavailable Momo Forbes Primary Care Provider Reason for Visit Reason Comments Eval/Assessment LBA Encounter Details Date Type Department Care Team Description 02/09/2014 Infusion Therapy Specialty Infusion Finger, Migel Mac y replaced by transplant (Primary Dx); Visit and Procedure MD Nathan [facility] [address] [place] [address] 19 5 [facility] 2nd Floor [address] [phone] [place], [place] (Work) [phone] Social History Tobacco Use [...] Diego Guthrie Thank you for choosing [facility] ([facility] [...] Bring Humulog Insulin Pen to your future [facility] appointments. 5) Return to [facility] tomorrow at 07:30 a.m We look forward in seeing you on your next appointment here at [facility]. Please don???t hesitate to callus at [phone] to reschedule any of your appointments or to speak with one of the [facility] registered nurses. It was a pleasure taking care of you today. Sincerely, MARC HERNANDEZ RN [facility] [address] [place] [address]. [place] [address] Coumadin Information: Keep Your Diet Steady Keep [...] 7:31 AM CDT Diego Guthrie came to [facility] today for a lab and assess following a Kidney transplant on 02/02/14. Discharge date: 02/08/14 seo coordinator: Leandro Kahn Phone number patient can be reached at: [phone] Physical Assessment: See physical assessment located under [...] s/s insulin this morning/nor brought insulin to [facility] appt. I reviewed w/pt the need to monitor BG's QID and to bring Insulin to [facility]. Last BM: yesterday, loose, pt stopped stool softeners. Pain: Incisional pain rated a 5 , declines pain meds at this time. Laboratory tests: Standard labs drawn. Plan of care for today: 1) Labs/Nausea/Orthostatic BP/MARGARET output reviewed with Dr Hernandes, orders: Increase Zofran to 8mg every 6-8 hours, MARGARET to remain in another day, Administer 1L of NS today, d/c pt from [facility] post 1L NS, return to [facility] tomorrow for LBA, No change in Prograf [...] and Phone numbers to call with concenrs (seo coordinator, [address] and Main [facility]) Patient verbalized understanding and all questions answered. Drug level: Prograf level today reviewed with Dr Hernandes who gave orders to no change in dose. INR of 1.59 also reviewed w/Dr Hernandes who gave orders to increase Coumadin to 7.5mg QD. Patient was updated with this information and verbalized understanding. Discharge Plan Pt will follow up with [facility] tomorrow at 0730. Bring Humulog Insulin Pen to [facility] today (pt did not bring to today's appt). 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/Claims Account Manager verbalized understanding, all questions answered: YES Discharged [...] Signature INR 1.59 (H) 0.86 - 1.14 [facility]S Specimen Anatomical Collection Method Collection Time Receive d Time (Source) Location / / Volume Laterality Blood specimen 02/09/2014 8:30 AM 014 (specimen) CDT 11:07 AM CDT Migel Merchatn MD LAB - BLOOD ORDERABLES Performing Organization Address City/State/ZIP Code Phon e Number [facility] [address] [place], [place] [phone] [place] [address] LABS Tacrolimus level (02/09/2014 7:40 AM CDT) [employer] gist Method Time Signature Tacrolimus Not Provided [facility] Last Dose [facility] Tacrolimus 8.0 5.0 - [facility] Level 15.0 ug/L [facility] Comment: Tacrolimus Reference Range Kidney Transplant [...] e Number [facility] [address] [place], [place] [phone] [place] [address] [facility]) CBC with platelets differential (02/09/2014 7:40 AM CDT) Patholo gist Method Time Signature WBC 5.8 4.0 - [facility] 11.0 [facility] 10e9/L [place] [facility] RBC Count 2.66 (L) 4.4 - 5.9 [facility] 10e12/L [facility] Hemoglobin 8.2 (L) 13.3 - [facility] 17.7 g/dL [facility] Hematocrit 24.4 (L) 40.0 - [facility] 53.0 % [facility] MCV 92 78 - 100 [facility] fl [facility] MCH 30.8 26.5 - [facility] 33.0 pg [facility] MCHC 33.6 31.5 - [facility] 36.5 g/dL [facility]S RDW 14.6 10.0 - [facility] 15.0 % [facility] Platelet Count 78 (L) 150 - 450 [facility] 10e9/L [facility] Diff Method Automated [facility] Method [facility] LABS % Neutrophils 84.8 % [facility] LABS % Lymphocytes 5.2 % [facility] LABS % Monocytes 6.9 % [facility] LABS % Eosinophils 2.9 % [facility] % Basophils 0.0 % [facility] LAB[facility] % Immature 0.2 % [facility] Granulocytes [facility] Absolute 4.9 1.6 - 8.3 [facility] Neutrophil 10e9/L [facility] LABS Absolute 0.3 (L) 0.8 - 5.3 [facility] Lymphocytes 10e9/L [facility] LABS Absolute 0.4 0.0 - 1.3 [facility] Monocytes 10e9/L [facility] Absolute 0.2 0.0 - 0.7 [facility] Eosinophils 10e9/L [facility] Absolute 0.0 0.0 - 0.2 [facility] Basophils 10e9/L [facility] LABS Abs Immature 0.0 0 - 0.4 [facility] Granulocytes 10e9/L [facility] LABS Specimen Anatomical Collection Method Collection Time Receive d Time (Source) Location / / Volume Laterality Blood specimen 02/09/2014 7:40 AM 014 7:49 (specimen) CDT AM CDT Migel Merchant MD LAB - BLOOD ORDERABLES Performing Organization Address City/State/ZIP Code Phon e Number [facility] [address] [place], [place] [phone] [place] [address] LABS (ABNORMAL) Phosphorus (02/09/2014 7:40 AM CDT) athologist Signature Phosphorus 2.0 (L) 2.5 - 4.5 [facility] mg/dL CAMPUS LABS Specimen Anatomical Collection Method Collection Time Receive d Time (Source) Location / / Volume Laterality Blood specimen 02/09/2014 7:40 AM 014 7:49 (specimen) CDT AM CDT Migel Merchant MD LAB - BLOOD ORDERABLES Performing Organization Address City/[facility] Phon e Number [facility] [address] LABS Magnesium (02/09/2014 7:40 AM CDT) athologist Signature Magnesium 1.9 1.6 - 2.3 [facility] mg/dL [place] LABS Specimen Anatomical Collection Method Collection Time Receive d Time (Source) Location / / Volume Laterality Blood specimen 02/09/2014 7:40 AM 014 7:49 (specimen) CDT AM CDT Migel Merchant MD LAB - BLOOD ORDERABLES Performing Organization Address City/[facility] Code Phon e Number [facility] [address] LABS (ABNORMAL) Basic metabolic panel (02/09/2014 7:40 AM CDT) [employer] gist Method Time Signature Sodium 145 (H) 133 - 144 [facility] mmol/L [facility] LABS Potassium 4.5 3.4 - 5.3 [facility] mmol/L [facility] LABS Chloride 110 (H) 94 - 109 [facility] mmol/L [facility] LABS Carbon Dioxide 24 20 - 32 [facility] mmol/L [facility] LABS Anion Gap 10 6 - 17 [facility] mmol/L [facility] LABS Glucose 137 (H) 60 - 99 [facility] mg/dL [facility] LABS Urea Nitrogen 48 (H) 7 - 30 [facility] mg/dL [facility] LABS Creatinine 2.02 (H) 0.66 - [facility] 1.25 mg/dL [facility] LABS GFR Estimate 34 (L) >60 [facility] mL/min/1.7 [place] m2 CAMPUS LABS GFR Estimate If 41 (L) >60 [facility] Black mL/min/1.7 [place] [address] CAMPUS LABS Calcium 9.2 8.5 - 10.4 [facility] mg/dL [facility] LABS Specimen Anatomical Collection Method Collection Time Receive d Time (Source) Location / / Volume Laterality Blood specimen 02/09/2014 7:40 AM 014 7:49 (specimen) CDT AM CDT Migel Merchant MD LAB - BLOOD ORDERABLES Performing Organization Address City/State/ZIP Code Phon e Number [address] [address] [facility] LABS documented in this encounter Visit [...] dose documented in this encounter Care Teams Behavioral Scientist Relationship Specialty Start Date End Date Momo Forbes PCP - General Family Practice 01/02/14 [facility] [address] [place] [address] Ingrid Santana, RN Registered Nurse Transplant 02/10/12 10/01/15 documented as of this encounter
--- OUTSIDE RECORDS SUMMARY | 2022-05-19 11:40 | XMS_ITS | Encounter Summary ---
:1950 Author Organization [place] Address [facility] [place] [address] Care Team Providers Name Role Phone Ingrid Santana RN Unavailable Momo Forbes Primary Care Provider Reason for Visit Reason Comments Transplant Encounter Details Date Type Department Care Team Description 02/02/2014 Orders Only Transplant Surgery Abraham, End stage renal failure Clinic [facility] Mae on dialysis (H) 2nd Floor, Clinic 2A (Primary Dx) [address] [phone] Social History Tobacco Use Types Packs/Day Years [...] disease documented in this encounter Care Teams Analyst Microbiology Lab Relationship Specialty Start Date End Date Momo Forbes PCP - General Family Practice 01/02/14 [facility] [address] [place] [address] Ingrid Santana, RN Registered Nurse Transplant 02/10/12 10/01/15 documented as of this encounter
--- OUTSIDE RECORDS SUMMARY | 2022-05-19 11:40 | XMS_ITS | Encounter Summary ---
:1950 Author Organization [place] Address [facility] [place] [address] Care Team Providers Name Role Phone Ingrid Santana RN Unavailable Momo Forbes Primary Care Provider Reason for Visit Reason Comments Eval/Assessment LBA Encounter Details Date Type Department Care Team Description 02/11/2014 Office Visit Specialty Infusion Kaitlynn Leon, Complica tion of transplanted kidney (Primary Dx); and Procedure Center Anemia; 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 Discharge: 02/08/2014 Using Medcard: Yes Med review: Went over all meds and dosing with patient and Tete. Went over Prograf and Cellcept side effects. Medication questions/concerns: Patient requested that we transfer 4 rx's (to profile) from local pharmacy to us here. 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 Using medbox: Yes Viewed DVD: Didn't bring up Pain: #2-3, feels good, rarely using Oxycodone Other Concerns: none No further questions for this pharmacist. Yi Londono [facility] [phone] documented in this encounter Plan of Treatment [...] interpretation and I agree with the findings. ABUREY BAIG MD Kaitlynn Leon MD IMG US ORDERABLES (ABNORMAL) INR (02/11/2014 9:30 AM CDT) P athologist Signature INR 2.28 (H) 0.86 - 1.14 [facility] LABS Specimen Anatomical Collection Method Collection Time Receive d Time (Source) Location / / Volume Laterality 02/11/2014 9:30 AM 4 9:41 CDT AM CDT Kaitlynn Leon MD LAB - BLOOD ORDERABLES Performing Organization Address City/State/ZIP Code Phon e Number [facility] [address] [place], [place] [phone] [place] [address] LABS documented in this encounter Visit Diagnoses Diagnosis Complication of transplanted kidney - Pr imary Complications of transplanted kidney Anemia Anemia, unspecified HTN (hypertension) Unspecified essential hypertension Immunosuppression (H) Unspecified disorder of immune mechanism Hypophosphatemia Disorders of phosphorus metabolism documented in this encounter Care Teams Sound Effects Person Relationship Specialty Start Date End Date Momo Forbes PCP - General Family Practice 01/02/14 [facility] [address] [place] [address] Ingrid Santana, RN Registered Nurse Transplant 02/10/12 10/01/15 documented as of this encounter
--- OUTSIDE RECORDS SUMMARY | 2022-05-19 11:40 | XMS_ITS | Encounter Summary ---
:1950 Author Organization [place] Address [address] [place] [address]. [place] [address] Care Team Providers Name Role Phone Ingrid Santana RN Unavailable Momo Forbes Primary Care Provider Reason for Visit Reason Onset Date Comments Refill Request 02/12/2014 clotrimazole Encounter Details Date Type Department Care Team Description 02/12/2014 Refill Nephrology Kaitlynn Leon MD Refill Request 2nd Floor, Clinic 2A [facility] (clotrimazole) [address] [phone] Social History Tobacco Use Types Packs/Day Years [...] Miscellaneous Notes Telephone Encounter - Lianne Braswell, [facility] - 02/12/2014 8:50 AM CDT Last Fill Date: 02/08/14 Last Fill Quantity: 70 Last Office Visit: 02/11/14 Proactive request, and also requesting a new quantity for a one month supply. Thanks! Lianne Braswell, PharmD [facility] Transplant Program [phone] documented in this encounter Plan of Treatment Not on filedocumented as of this encounter Visit Diagnoses Diagnosis S/P kidney transplant Kidney replaced by transplant documented in this encounter Care Teams Veterinary Laboratory Technician Relationship Specialty Start Date End Date Momo Forbes PCP - General Family Practice 01/02/14 [facility] [address] [place] [address] Ingrid Santana, RN Registered Nurse Transplant 02/10/12 10/01/15 documented as of this encounter
--- OUTSIDE RECORDS SUMMARY | 2022-05-19 11:40 | XMS_ITS | Encounter Summary ---
:1950 Author Organization [place] Address [facility] [place] [address] Care Team Providers Name Role Phone Ingrid Santana RN Unavailable Momo Forbes Primary Care Provider Reason for Visit Reason Comments Eval/Assessment s/p kidney transplant 8days ago Encounter Details Date Type Department Care Team Description 02/10/2014 Infusion Therapy Specialty Infusion Finger, Migel Mac y replaced by Visit and Procedure MD Nathan transplant (Primary Center [address] [place] [address]) [facility] [address] [phone] [place], [place] (Work) [phone] Social History Tobacco Use [...] 10:40 AM CDT Diego Guthrie came to [facility] today for a lab and assess 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 Discharge date: 02/08/14 construction project coordinator: Leandro Kahn RN Phone number patient can be reached at: [phone] (girlfriend's cell) Physical Assessment: See physical assessment located under Document Flowsheets. Incision site: stapled, leaking tiny amount clear pink/pale yellow fluid from mid incision (1.5inch area on dressing from 3hours ago) covered with ABD Lines: MARGARET rlq; 30cc out last tamara; 10cc out overnite;; lite pink clear fluid Gibbs: na states is not having voiding difficulty Urine clarity: not asked Hydration: states he [id number] water yesterday but does not like that [...] Discharge Plan Pt will follow up with [facility] lab/assess in am 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/Engineering Illustrator verbalized understanding, all questions answered: YES Discharged [...] Results Tacrolimus level (02/10/2014 8:37 AM CDT) [facility] Method Time Signature Tacrolimus Not Provided [facility] Last Dose [facility] LABS Tacrolimus 6.8 5.0 - [facility] Level 15.0 ug/L [facility] LABS Comment: Tacrolimus Reference Range Kidney Transplant [...] [facility] [address] [place] [address] [facility] LABS (ABNORMAL) CBC with platelets differential (02/10/2014 8:37 AM CDT) Component Value Ref Test Analysis Performed At [facility] gist Range Method Time Signature WBC 5.5 4.0 - [facility] 11.0 [place] LABS 10e9/L RBC Count 2.53 (L) 4.4 - [facility] 5.9 CAMPUS LABS 10e12/L Hemoglobin 7.9 (L) 13.3 - [facility] 17.7 CAMPUS LABS g/dL Hematocrit 23.2 (L) 40.0 - [facility] 53.0 % CAMPUS LABS MCV 92 78 - 100 [facility] fl CAMPUS LABS MCH 31.2 26.5 - [facility] 33.0 pg CAMPUS LABS MCHC 34.1 31.5 - [facility] 36.5 CAMPUS LABS g/dL RDW 14.5 10.0 - [facility] 15.0 % CAMPUS LABS Platelet Count 89 (L) 150 - [facility] 450 CAMPUS LABS 10e9/L Diff Method [...] Code Phon e Number [id number] DIFFERENTIAL [facility] LABS (ABNORMAL) Phosphorus (02/10/2014 8:37 AM CDT) P athologist Signature Phosphorus 1.9 (L) 2.5 - 4.5 [facility] mg/dL CAMPUS LABS Specimen Anatomical Collection Method Collection Time Receive d Time (Source) Location / / Volume Laterality Blood specimen 02/10/2014 8:37 AM 014 8:38 (specimen) CDT AM CDT Migel Mrechant MD LAB - BLOOD ORDERABLES Performing Organization Address City/State/[facility] Code Phon e Number [facility] [address] LABS Magnesium (02/10/2014 8:37 AM CDT) P athologist Signature Magnesium 2.0 1.6 - 2.3 [facility] UNIVERSITY mg/dL CAMPUS LABS Specimen Anatomical Collection Method Collection Time Receive d Time (Source) Location / / Volume Laterality Blood specimen 02/10/2014 8:37 AM 014 8:38 (specimen) CDT AM CDT Migel Merchant MD LAB - BLOOD ORDERABLES Performing Organization Address City/[facility]/ZIP Code Phon e Number [facility] [address] LABS (ABNORMAL) Basic metabolic panel (02/10/2014 8:37 AM CDT) Patholo gist Method Time Signature Sodium 144 133 - 144 [facility] mmol/L [facility] LABS Potassium 4.8 3.4 - 5.3 [facility] mmol/L [facility] LABS Chloride 111 (H) 94 - 109 [facility] mmol/L [facility] LABS Carbon Dioxide 22 20 - 32 [facility] mmol/L [facility] LABS Anion Gap 10 6 - 17 [facility] mmol/L [facility] LABS Glucose 128 (H) 60 - 99 [facility] mg/dL [facility] LABS Urea Nitrogen 34 (H) 7 - 30 [facility] mg/dL [facility] LABS Creatinine 1.80 (H) 0.66 - [facility] 1.25 mg/dL [facility] LABS GFR Estimate 38 (L) >60 [facility] mL/min/1.7 UNIVERSITY m2 CAMPUS LABS GFR Estimate If 46 (L) >60 [facility] Black mL/min/1.7 [place] [address] CAMPUS LABS Calcium 9.1 8.5 - 10.4 [facility] mg/dL [facility] LABS Specimen Anatomical Collection Method Collection Time Receive d Time (Source) Location / / Volume Laterality Blood specimen 02/10/2014 8:37 AM 014 8:38 (specimen) CDT AM CDT Migel Merchant MD LAB - BLOOD ORDERABLES Performing Organization Address City/State/ZIP Code Phon e Number [facility] [address] [place] [address] [facility] LABS documented in this encounter Visit Diagnoses Diagnosis Kidney replaced by transplant - Primary documented in this encounter Care Teams Wood Scaler Relationship Specialty Start Date End Date Momo Forbes PCP - General Family Practice 01/02/14 [facility] [address] [place] [address] Ingrid Santana, RN Registered Nurse Transplant 02/10/12 10/01/15 documented as of this encounter
--- OUTSIDE RECORDS SUMMARY | 2022-05-19 11:40 | XMS_ITS | Encounter Summary ---
:1950 Author Organization [place] Address [facility] [place] [address] Care Team Providers Name Role Phone Ingrid Santana RN Unavailable Momo Forbes Primary Care Provider Reason for Referral CV Cardio consult - Closed Specialty Diagnoses / Procedures Referred By Contact Refer red To Contact Diagnoses Atrial fibrillation (H) Kaitlynn Leon MD [facility] [place] [address] [place] [address] Fax: Referral ID Status Reason Start Date Expiration Date Visits Requ ested Visits Authorized [id number] Closed 02/12/2014 08/11/2014 1 1 Reason for Visit Reason Comments RECHECK Encounter Details Date Type Department Care Team Description 02/12/2014 Office Visit Specialty Infusion Kaitlynn Leon, S/P liborio ey transplant (Primary Dx); and Procedure Center Atrial fibrillation (H); Arpita [facility] Hypopho sphatemia; Building [place] Nausea; 2nd Floor [address] Immunosuppression (H) [address] [facility] [address] [place], [place] [phone] [address] (Work) [phone] Social History Tobacco Use Types Packs/Day Years [...] Diego Guthrie Thank you for choosing [facility] ([facility]) for your transplant cares. The following information is a summary of our appointment as well as important reminders. Please make sure your phone is available today because I will call to update you with your anti-rejection drug levels and possibly make changes to your anti- rejection dosages. Additional information: -Decrease your coumadin dose to 5 mg every evening -Please return to [facility] on for Labs & assessment -Call us or Leandro Kahn with any questions. -Your Home Care Nurse should begin visits on TuesdayFebruary 14. If you do not hear from them by Tuesday morning, try to reach them at [phone]. We look forward in seeing you on your next appointment here at [facility]. Please don???t hesitate to callus at [phone] to reschedule any of your appointments or to speak with one of the [facility] registered nurses. It was a pleasure taking care of you today. Sincerely, Gladis Olvera RN [facility] - Clinic [address] [place] [address]. 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
--- OUTSIDE RECORDS SUMMARY | 2022-05-19 11:40 | XMS_ITS | Encounter Summary ---
:1950 Author Organization [place] Address [address] [place] [address]. [place] [address] Care Team Providers Name Role Phone Ingrid Santana RN Unavailable Momo Forbes Primary Care Provider Encounter Details Date Type Department Care Team Description 02/02/2014 Abstract The Transplant [facility] 2nd Floor, Clinic [address]A [address] [phone] Social History Tobacco Use [...] filedocumented in this encounter Care Teams Pharmacy Clinical Coordinator Relationship Specialty Start Date End Date Momo Forbes PCP - General Family Practice 01/02/14 [facility] [address] [place] [address] Ingrid Santana RN Registered Nurse Transplant 02/10/12 10/01/15 documented as of this encounter
--- OUTSIDE RECORDS SUMMARY | 2022-05-19 11:40 | XMS_ITS | Encounter Summary ---
:1950 Author Organization [place] Address [facility] [address] Care Team Providers Name Role Phone Ingrid Santana RN Unavailable Momo Forbes Primary Care Provider Reason for Visit Reason Comments Eval/Assessment LABS, ASSESSMENT, EDUCATION AND DRESSING CHANGE. Encounter Details Date Type Department Care Team Description 02/14/2014 Infusion Therapy Specialty Infusion Kaitlynn Leon MD Kidney replaced by transplant (Primary D x); Visit and Procedure Center [facility] S/P kidney transplant [facility] Building [address] [address] [place], [place] (Work) [phone] Social History Tobacco Use [...] 3:25 PM CDT Diego Guthrie came to [facility] today for a lab and assess following a Kidney transplant on 02/02/14. Discharge date: 02/08/14 guidance services coordinator: Leandro Kahn Phone number patient can be reached at: [phone] Physical Assessment: See physical assessment located under [...] Tuesday. 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/Drop Count Associate verbalized understanding, all questions answered: YES Discharged [...] Signature INR 2.29 (H) 0.86 - 1.14 [facility] LABS Specimen Anatomical Collection Method Collection Time Receive d Time (Source) Location / / Volume Laterality Blood specimen 02/14/2014 7:51 AM 014 7:58 (specimen) CDT AM CDT Kaitlynn Leon MD LAB - BLOOD ORDERABLES Performing Organization Address City/State/ZIP Code Phon e Number [facility] 500 [place], [place] [phone] [place] [address] LABS Tacrolimus level (02/14/2014 7:51 AM CDT) [facility] gist Method Time Signature Tacrolimus Last 1914 [facility] Dose 02/13/14 [facility] LABS Tacrolimus 7.5 5.0 - [facility] Level 15.0 ug/L [facility] LABS Comment: Tacrolimus Reference Range Kidney [...] [facility] [address] [place], [place] [phone] [place] [address] LABS (ABNORMAL) CBC with platelets differential (02/14/2014 7:51 AM CDT) [facility] gist Method Time Signature WBC 6.9 4.0 - [facility] 11.0 [place] 10e9/L [place] LABS RBC Count 2.55 (L) 4.4 - 5.9 [facility] 10e12/L [facility] LABS Hemoglobin 7.8 (L) 13.3 - [facility] 17.7 g/dL [facility] LABS Hematocrit 23.4 (L) 40.0 - [facility] 53.0 % [facility] LABS MCV 92 78 - 100 [facility] fl [facility] LABS MCH 30.6 26.5 - [facility] 33.0 pg [facility] LABS MCHC 33.3 31.5 - [facility] 36.5 g/dL [facility] LABS RDW 14.9 10.0 - [facility] 15.0 % [facility] LABS Platelet Count 122 (L) 150 - 450 [facility] 10e9/L [facility] LABS Diff Method Automated [facility] Method [facility] LABS % Neutrophils 88.7 % [facility] LABS % Lymphocytes 2.6 % [facility] LABS % Monocytes 4.5 % [facility] LABS % Eosinophils 3.8 % [facility] % Basophils 0.1 % [facility] % Immature 0.3 % [facility] Granulocytes [facility] LABS Absolute 6.1 1.6 - 8.3 [facility] Neutrophil 10e9/L [facility] LABS Absolute 0.2 (L) 0.8 - 5.3 [facility] Lymphocytes 10e9/L [facility] LABS Absolute 0.3 0.0 - 1.3 [facility] Monocytes 10e9/L [facility] LABS Absolute 0.3 0.0 - 0.7 [facility] Eosinophils 10e9/L [facility] LABS Absolute 0.0 0.0 - 0.2 [facility] Basophils 10e9/L [facility] LABS Abs Immature 0.0 0 - 0.4 [facility] Granulocytes 10e9/L [facility] LABS Specimen Anatomical Collection Method Collection Time Receive d Time (Source) Location / / Volume Laterality Blood specimen 02/14/2014 7:51 AM 014 7:53 (specimen) CDT AM CDT Joseph Quintana MD LAB - BLOOD ORDERABLES Performing Organization Address City/[facility] Code Phon e Number [address] LABS (ABNORMAL) Phosphorus (02/14/2014 7:51 AM CDT) P athologist Signature Phosphorus 2.4 (L) 2.5 - 4.5 [facility] mg/dL [place] LABS Specimen Anatomical Collection Method Collection Time Receive d Time (Source) Location / / Volume Laterality Blood specimen 02/14/2014 7:51 AM 014 7:53 (specimen) CDT AM CDT Joseph Quintana MD LAB - BLOOD ORDERABLES Performing Organization Address City/[facility]/ZIP Code Phon e Number [address] UNIVERSITY CAMPUS LABS Magnesium (02/14/2014 7:51 AM CDT) P athologist Signature Magnesium 1.6 1.6 - 2.3 [facility] UNIVERSITY mg/dL CAMPUS LABS Specimen Anatomical Collection Method Collection Time Receive d Time (Source) Location / / Volume Laterality Blood specimen 02/14/2014 7:51 AM 014 7:53 (specimen) CDT AM CDT Joseph Quintana MD LAB - BLOOD ORDERABLES Performing Organization Address City/[facility] Code Phon e Number [facility] [address] [place] [address] [facility] LABS (ABNORMAL) Basic metabolic panel (02/14/2014 7:51 AM CDT) Patholo gist Method Time Signature Sodium 143 133 - 144 [facility] mmol/L [facility] LABS Potassium 5.4 (H) 3.4 - 5.3 [facility] mmol/L [facility] LABS Chloride 113 (H) 94 - 109 [facility] mmol/L [facility] LABS Carbon Dioxide 20 20 - 32 [facility] mmol/L [facility] LABS Anion Gap 9 6 - 17 [facility] mmol/L [facility] LABS Glucose 193 (H) 60 - 99 [facility] mg/dL [facility] LABS Urea Nitrogen 18 7 - 30 [facility] mg/dL [facility] LABS Creatinine 1.82 (H) 0.66 - [facility] 1.25 mg/dL [facility] LABS GFR Estimate 38 (L) >60 [facility] mL/min/1.7 [place] m2 CAMPUS LABS GFR Estimate If 46 (L) >60 [facility] Black mL/min/1.7 [place] m2 CAMPUS LABS Calcium 9.2 8.5 - 10.4 [facility] mg/dL [facility] LABS Specimen Anatomical Collection Method Collection Time Receive d Time (Source) Location / / Volume Laterality Blood specimen 02/14/2014 7:51 AM 014 7:53 (specimen) CDT AM CDT Joseph Quintana MD LAB - BLOOD ORDERABLES Performing Organization Address City/State/ZIP Code Phon e Number [facility] [address] [place] [address] [facility] LABS documented in this encounter Visit Diagnoses Diagnosis Kidney replaced by transplant - Primary S/P kidney transplant Kidney replaced by transplant documented in this encounter Care Teams Sustainability Specialist Relationship Specialty Start Date End Date Forbes, Ton PCP - General Family Practice 01/02/14 [facility] [address] [place] [address] Ingrid Santana, RN Registered Nurse Transplant 02/10/12 10/01/15 documented as of this encounter
--- OUTSIDE RECORDS SUMMARY | 2022-05-19 11:40 | XMS_ITS | Encounter Summary ---
:1950 Author Organization [place] Address [address] [place] [address] Care Team Providers Name Role Phone Ingrid Santana RN Unavailable Momo Forbes Primary Care Provider Encounter Details Date Type Department Care Team Description 02/02/2014 Results Only LABORATORY RESULTS Migel Merchant MD [address] [place] [address] [address] [place] [address] (Wo rk) Social History Tobacco [...] I Single Antigen (02/02/2014 6:51 PM CDT) [facility] Method Time Signature SA1 Test [...] Phon e Number [facility] Immunology/Histocompatabil [place], [place] [address] [facility] [address] Building, Room 3-580 HISTOTRAC documented in this encounter Visit Diagnoses Not on filedocumented in this encounter Care Teams Helicopter Utility Aircrewman Relationship Specialty Start Date End Date Momo Forbes PCP - General Family Practice 01/02/14 [facility] [address] [place] [address] Ingrid Santana, RN Registered Nurse Transplant 02/10/12 10/01/15 documented as of this encounter
--- OUTSIDE RECORDS SUMMARY | 2022-05-19 11:40 | XMS_ITS | Encounter Summary ---
:1950 Author Organization [place] Address [facility] [place] [address] Care Team Providers Name Role Phone Ingrid Santana RN Unavailable Momo Forbes Primary Care Provider Reason for Visit Reason Comments Transplant Donor culture results Encounter Details Date Type Department Care Team Description 02/04/2014 Documentation Only The Transplant Gladis Yeboah, Transplant (Donor 2nd Floor, Clinic 2A RN culture results) [address] [place] [phone] Social History Tobacco Use Types Packs/Day Years [...] and urine cultures have been uploaded into [employer]. Notification sent to Dr. Rust and Dr. Hernandes. documented in this encounter Plan of Treatment Not on filedocumented as of this encounter Visit Diagnoses Not on filedocumented in this encounter Care Teams Maintenance Assistant Relationship Specialty Start Date End Date Momo Forbes PCP - General Family Practice 01/02/14 [facility] [address] [place] [address] Ingrid Santana, RN Registered Nurse Transplant 02/10/12 10/01/15 documented as of this encounter
--- OUTSIDE RECORDS SUMMARY | 2022-05-19 11:40 | XMS_ITS | Encounter Summary ---
:1950 Author Organization [place] Address [facility] access hospital0 [facility] [place] [address] Care Team Providers Name Role Phone Ingrid Santana RN Unavailable Momo Forbes Primary Care Provider Reason for Visit Reason Comments Eval/Assessment LBA Encounter Details Date Type Department Care Team Description 02/11/2014 Infusion Therapy Specialty Infusion Finger, Migel Mac y replaced by Visit and Procedure MD Nathan transplant (Primary Center [address] [place] [address] Dx) [facility] 19 5 [address] [facility] 2nd Floor [address] [phone] [place], [place] (Work) [phone] Social History Tobacco [...] Dear Diego Guthrie Thank you for choosing [facility] ([facility]) for your transplant cares. The following [...] regarding the result at your appointment in [facility] tomorrow. We look forward in seeing you on your next appointment here at [facility]. Please don???t hesitate to callus at [phone] to reschedule any of your appointments or to speak with one of the [facility] registered nurses. It was a pleasure taking care of you today. Sincerely, Gladis Olvera, RN [facility] [address] [place] [address] documented in this encounter Progress Notes Gladis Olvera RN - 02/11/2014 8:43 AM CDT Diego Guthrie came to [facility] today for a lab and assess following a Kidney transplant on 02/02/14. Discharge date: 02/08/14 health and wellness coordinator: Leandro Kahn Phone number patient can be reached at: [phone] Physical Assessment: See physical assessment located under Document Flowsheets. Incision site: Dry dressing with modesta. Dressing changed. Small amt oozing, Small amt ecchymosis. Pt instructed on signs/symptoms of infection. Some swelling under incision, pt has known hematoma andwill have a renal ultrasound today at 2pm. Lines: MARGARET drain to bulb suction, serosanguinous drainage. 20 ml at [facility] appointment today. Gibbs: n/a Urine clarity: clear per patient report Hydration: discussed drinking 2-3 L daily Nutrition: Pt states appetite is improving Last BM: 02/10/14 evening Pain: 2 at rest, 5 with activity. Pain adequately controlled with home medications Laboratory tests: Standard labs drawn. Plan of care for today: Pt presents to [facility] for Labs & Assessment following Kid Txp on 02/02/14. Pt's creatinine up to 1.97 today, but ok per Dr. Leon considering the complications with transplant. Hgb 7.4 and pt c/o slight fatigue. Discussed with Dr. Leon and will hold off on a transfusion for now, but will continue to monitor hgb at [facility] appointments over the next 2 days. INR 2.23, EKG obtained and pt found to be in Normal Sinus Rhythm. Pt will remain on coumadin for now and will follow up with a color straining bag washer near [facility]. Continue daily INRs while pt is coming to [facility]. Pt's MARGARET continues to drain more [...] Discharge Plan Pt will follow up with [facility] tomorrow. 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/Hydroelectric Station Chief verbalized understanding, all questions answered: YES Discharged [...] Results Tacrolimus level (02/11/2014 7:40 AM CDT) [facility] gist Method Time Signature Tacrolimus Last 02/10/14 [facility] Dose 2000 [facility] Tacrolimus 12.2 5.0 - [facility] Level 15.0 ug/L [facility] Comment: Tacrolimus Reference Range [...] e Number [facility] [address] [place] [address] [facility] (ABNORMAL) CBC with platelets differential (02/11/2014 7:40 AM CDT) [facility] gist Method Time Signature WBC 4.4 4.0 - [facility] 11.0 [facility] 10e9/L [facility] [place] [facility] RBC Count 2.39 (L) 4.4 - 5.9 [facility] 10e12/L [facility] Hemoglobin 7.4 (L) 13.3 - [facility] 17.7 g/dL [facility] Hematocrit 22.1 (L) 40.0 - [facility] 53.0 % [facility] MCV 93 78 - 100 [facility] fl [facility] MCH 31.0 26.5 - [facility] 33.0 pg [facility] MCHC 33.5 31.5 - [facility] 36.5 g/dL [facility] RDW 14.7 10.0 - [facility] 15.0 % [facility] Platelet Count 83 (L) 150 - 450 [facility] 10e9/L [facility] Diff Method Automated [facility] Method [facility] % Neutrophils 80.4 % [facility] % Lymphocytes 8.2 % [facility] % Monocytes 5.2 % [facility] % Eosinophils 5.7 % [facility] % Basophils 0.0 % [facility] % Immature 0.5 % [facility] Granulocytes [facility] Absolute 3.5 1.6 - 8.3 [facility] [...] e Number [facility] [address] LABS (ABNORMAL) Phosphorus (02/11/2014 7:40 AM [...] e Number [facility] [address] LABS Magnesium (02/11/2014 7:40 AM CDT) P athologist Signature Magnesium 1.9 1.6 - 2.3 [facility] mg/dL [facility] Specimen Anatomical Collection Method Collection Time Receive d Time (Source) Location / / Volume Laterality Blood specimen 02/11/2014 7:40 AM 014 7:41 (specimen) CDT AM CDT Kaitlynn Leon MD LAB - BLOOD ORDERABLES Performing Organization Address City/State/ZIP Code Phon e Number [facility] [address] LABS (ABNORMAL) Basic metabolic panel (02/11/2014 7:40 AM CDT) [facility] Method Time Signature Sodium 142 133 - 144 [facility] mmol/L [facility] Potassium 5.4 (H) 3.4 - 5.3 [facility] mmol/L [facility] Chloride 113 (H) 94 - 109 [facility] mmol/L [facility] Carbon Dioxide 22 20 - 32 [facility] mmol/L [facility] Anion Gap 8 6 - 17 [facility] mmol/L [facility] Glucose 155 (H) 60 - 99 [facility] mg/dL [facility] Urea Nitrogen 31 (H) 7 - 30 [facility] mg/dL [facility] Creatinine 1.97 (H) 0.66 - [facility] 1.25 mg/dL [facility] GFR Estimate 35 (L) >60 [facility] mL/min/1.7 [place] m2 [place] [facility] GFR Estimate If 42 (L) >60 [facility] Black mL/min/1.7 [place] m2 [place] [facility] Calcium 9.1 8.5 - 10.4 [facility] mg/dL [facility] Specimen Anatomical Collection Method Collection Time Receive d Time (Source) Location / / Volume Laterality Blood specimen 02/11/2014 7:40 AM 014 7:41 (specimen) CDT AM CDT Kaitlynn Leon MD LAB - BLOOD ORDERABLES Performing Organization Address City/State/ZIP Code Phon e Number [address] [address] [facility]S documented in this encounter Visit Diagnoses Diagnosis Kidney replaced by transplant - Primary documented in this encounter Care Teams Slag Mixer Relationship Specialty Start Date End Date Momo Forbes PCP - General Family Practice 01/02/14 [facility] [address] [place] [address] Ingrid Santana, RN Registered Nurse Transplant 02/10/12 10/01/15 documented as of this encounter
--- OUTSIDE RECORDS SUMMARY | 2022-05-19 11:40 | XMS_ITS | Encounter Summary ---
:1950 Author Organization [place] Address [facility] [place] [address] Care Team Providers Name Role Phone Ingrid Santana RN Unavailable Momo Forbes Primary Care Provider Encounter Details Date Type Department Care Team Description 02/02/2014 Results Only LABORATORY RESULTS Migel Merchant MD [address] [place] [address] (Wo rk) Social History Tobacco Use [...] T/B Crossmatch Auto (02/02/2014 6:51 PM CDT) [facility] Method Time Signature Crossmatch Donor:ELINOR GUTHRIE [...] Phon e Number [facility] Immunology/Histocompatabil [place], [place] [address] [facility] [address], Room 3-580 HISTOTRAC documented in this encounter Visit Diagnoses Not on filedocumented in this encounter Care Teams Gas Compressor Operator Relationship Specialty Start Date End Date Momo Forbes PCP - General Family Practice 01/02/14 [facility] [address] [place] [address] Ingrid Santana, RN Registered Nurse Transplant 02/10/12 10/01/15 documented as of this encounter
--- OUTSIDE RECORDS SUMMARY | 2022-05-19 11:40 | XMS_ITS | Encounter Summary ---
:1950 Author Organization [place] Address [address] [place] [address]. [place] [address] Care Team Providers Name Role Phone Ingrid Santana RN Unavailable Momo Forbes Primary Care Provider Reason for Visit Auth/Cert - Closed Specialty Diagnoses / Procedures Referred By Contact Refer red To Contact Med Surg Diagnoses end stage renal disease dialysis End stage renal failure on dialysis Renal Failure [facility] U7a Procedures TRANSPLANT KIDNEY RECIPIENT DONOR [address] [place] [address] Phone: Referral ID Status Reason Start Date Expiration Date Visits Requ ested Visits Authorized [id number] Closed 02/04/2014 08/03/2014 1 1 Encounter Details Date Type Department Care Team Description 02/02/2014 Anesthesia Event formerly [facility] Joseph Ivey MD XXX RESIGNED XXX [address] [place], [place] [address] PeriOp Services Leigh Ann Blank MD [address] [facility] [address] [place] [address] 500 [place] [address] Anesthesia Record Procedure Summary Procedure [...] Hand Inez Mckeon Sara E RN Saima, CUFF SETTER RETIRED ETT 02/02/14; 1753; Airway 02/02/14 1753 [...] Take 1 tablet by mouth daily. B aobitln-U-bpgwk acid (NEPHROCAPS) 1 MG capsule Take 1 [...] benefits and alternatives discussed with: patient or automobile sales representative. Possibility of blood products discussed. I [...] plan were discussed with patient/family or family automobile sales representative. All questions were answered and there was agreement to proceed. History & Physical Review Leigh Ann Blank MD Anesthesiology CA-[id number] [phone] 2:47 PM February 02, 2014 Diego Guthrie was seen and examined and the medical history was reviewed with him. The anesthetic plan was discussed, risks were explained and questions were answered. He agrees to proceed as discussed. I have reviewed this note and agree with the assessment and plan. Joseph Ivey M.D. Staff Anesthesiologist [phone] 02/02/2014 4:48 PM documented in this encounter [...] Date/Time Associated Diagnosis Comme nts [facility] AN IN PA CENTRAL Routine 02/02/2014 6:19 PM Re [...] passed easily into [facility]. Hyunnarm Nazia DO IN ANESTHESIA documented in this encounter Visit Diagnoses [...] Intra-op documented in this encounter Care Teams Multiple Wire Sawyer Relationship Specialty Start Date End Date Momo Forbes PCP - General Family Practice 01/02/14 [facility] [address] [place] [address] Ingrid Santana, RN Registered Nurse Transplant 02/10/12 10/01/15 documented as of this encounter
--- OUTSIDE RECORDS SUMMARY | 2022-05-19 11:40 | XMS_ITS | Encounter Summary ---
:1950 Author Organization [place] Address [facility] [place] [address] Care Team Providers Name Role Phone Ingrid Santana RN Unavailable Momo Forbes Primary Care Provider Encounter Details Date Type Department Care Team Description 02/11/2014 Radiant Appointment [facility] 1st Floor, Clinic [address] [place], [place] [address] Social History Tobacco Use Types Packs/Day Years [...] on filedocumented in this encounter Care Teams Tennis Ball Coverer Hand Relationship Specialty Start Date End Date Momo Forbes PCP - General Family Practice 01/02/14 [facility] [address] [place] [address] Ingrid Santana RN Registered Nurse Transplant 02/10/12 10/01/15 documented as of this encounter
--- OUTSIDE RECORDS SUMMARY | 2022-05-19 11:40 | XMS_ITS | Encounter Summary ---
:1950 Author Organization [place] Address [address] [place] [address] Care Team Providers Name Role Phone Ingrid Santana RN Unavailable Momo Forbes Primary Care Provider Encounter Details Date Type Department Care Team Description 02/02/2014 Results Only LABORATORY RESULTS Migel Merchant MD [address] [place] [address] [address] [place] [address] (Wo rk) Social History Tobacco [...] II Single Antigen (02/02/2014 6:51 PM CDT) [facility] Method Time Signature SA2 Test SA [...] Phon e Number [facility] Immunology/Histocompatabil [place], [place] [address] ity [facility] [address], Room 3-580 HISTOTRAC documented in this encounter Visit Diagnoses Not on filedocumented in this encounter Care Teams Children'S Librarian Relationship Specialty Start Date End Date Momo Forbes PCP - General Family Practice 01/02/14 [facility] [address] [place] [address] Ingrid Santana, RN Registered Nurse Transplant 02/10/12 10/01/15 documented as of this encounter
--- OUTSIDE RECORDS SUMMARY | 2022-05-19 11:40 | XMS_ITS | Encounter Summary ---
:1950 Author Organization [place] Address [address] [place] [address]. [place] [address] Care Team Providers Name Role Phone Ingrid Santana RN Unavailable Momo Forbes Primary Care Provider Reason for Visit Reason Onset Date Comments Refill Request 02/11/2014 Encounter Details Date Type Department Care Team Description 02/11/2014 Refill Nephrology Isa Ly RN Refill Request 2nd Floor, Clinic [address] [place] [phone] Social History Tobacco Use Types Packs/Day [...] transplant documented in this encounter Care Teams Contracting Specialist Relationship Specialty Start Date End Date Momo Forbes PCP - General Family Practice 01/02/14 [facility] [address] [place] [address] Ingrid Santana, RN Registered Nurse Transplant 02/10/12 10/01/15 documented as of this encounter
--- OUTSIDE RECORDS SUMMARY | 2022-05-19 11:40 | XMS_ITS | Encounter Summary ---
:1950 Author Organization [place] Address [facility] [address] Care Team Providers Name Role Phone Ingrid Santana RN Unavailable Momo Forbes Primary Care Provider Encounter Details Date Type Department Care Team Description 02/02/2014 Results Only LABORATORY RESULTS Migel Merchant MD [address] [place] [address] (Wo rk) Social History Tobacco Use [...] T/B Crossmatch Allo (02/02/2014 6:51 PM CDT) [facility] Method Time Signature Crossmatch Donor:[id number], ?Crossmatch Date:02/02/2014 HISTOTRAC Result (Note) Serum Date [...] - IMMUNOLOGY ORDERABLES Performing Organization Address City/State/ZIP [facility] Phon e Number [facility] Immunology/Histocompatabil [place], [place] [address] ity [facility] [address], Room 3-580 HISTOTRAC documented in this encounter Visit Diagnoses Not on filedocumented in this encounter Care Teams Remote Sensing Scientist Relationship Specialty Start Date End Date Momo Forbes PCP - General Family Practice 01/02/14 [facility] [address] [place] [address] Ingrid Santana, RN Registered Nurse Transplant 02/10/12 10/01/15 documented as of this encounter
--- OUTSIDE RECORDS SUMMARY | 2022-05-19 11:40 | XMS_ITS | Encounter Summary ---
:1950 Author Organization [place] Address [address] [place] [address]. [place] [address] Care Team Providers Name Role Phone Ingrid Santana RN Unavailable Momo Forbes Primary Care Provider Encounter Details Date Type Department Care Team Description 02/11/2014 Orders Only Nephrology Josseline Nice, Kidney replaced by 2nd Floor, Clinic 2A [place] transplant (Primary Sanders Wangfelisa Dx) [address] [phone] Social History Tobacco Use Types Packs/Day Years [...] Primary documented in this encounter Care Teams Software Verification Engineer Relationship Specialty Start Date End Date Momo Forbes PCP - General Family Practice 01/02/14 [facility] [address] [place] [address] Ingrid Santana RN Registered Nurse Transplant 02/10/12 10/01/15 documented as of this encounter
--- OUTSIDE RECORDS SUMMARY | 2022-05-19 11:40 | XMS_ITS | Encounter Summary ---
:1950 Author Organization [place] Address [facility] [place] [address] Care Team Providers Name Role Phone Ingrid Santana RN Unavailable Momo Forbes Primary Care Provider Reason for Visit Reason Comments Eval/Assessment LBA Encounter Details Date Type Department Care Team Description 02/12/2014 Infusion Therapy Specialty Infusion Finger, Migel Mac y replaced by Visit and Procedure MD Nathan transplant (Primary Center [address] [place] [address] Dx) [facility] [address] [facility] 2nd Floor [address] [phone] [place], [place] (Work) [phone] Social History Tobacco Use [...] Dear Diego Guthrie Thank you for choosing [facility] Specialty Infusion [facility] Procedure [facility] ([facility]) for your transplant cares. The following information is a summary of our appointment as well as important reminders. Additional information: We will see you on for labs & assessment. We look forward in seeing you on your next appointment here at [facility]. Please don???t hesitate to callus at [phone] to reschedule any of your appointments or to speak with one of the [facility] registered nurses. It was a pleasure taking care of you today. Sincerely, Gladis Olvera, BOGDAN [facility] Specialty Infusion [facility] Procedure [facility] [address] [place] [address]. [place] [phone] January 2014Tuesday 1 2 3 4 5 6 7 8 9 10 11 12 13 14 Admission 12:55 PM Migel Merchant MD [address] [facility] [place] (Discharge: 02/08/2014) XR CHEST 2 VIEWS 1:55 PM (10 min.) Uuxr1 [facility], Radiology TRANSPLANT KIDNEY RECIPIENT DONOR 4:00 PM Migel Merchant MD UU OR XR CHEST PORT 2 VIEWS 11:10 PM (15 min.) [email or web address] [facility], Radiology 15 US RENAL TRANSPLANT 7:50 AM (50 min.) Uuus2 [facility], Ultrasound 16 IP EVALUATION 6:00 AM (60 min.) Angela Wilder, PT [facility], Physical Therapy UU TRANSPLANT MEDICATIONS 11:00 AM (120 min.) Josseline Almendarez RN [facility] Patient Learning [place] UU TRANSPLANT FOLLOW-UP CARE 1:00 PM (120 min.) Josseline Almendarez RN [facility], Patient Learning [place] ECH LIMITED 3:35 PM (60 min.) [email or web address] [facility], Echocardiography 17 IP TREATMENT 5:30 AM (30 min.) Roderick Lawson, PT [facility], Physical Therapy 18 IP TREATMENT 5:30 AM (30 min.) Yesenia Rodriguez, PT [facility], Physical Therapy 19 IP TREATMENT 5:30 AM (30 min.) Reina Kenny, PT [facility], Physical Therapy US RENAL 11:15 AM (60 min.) Uuus2 [facility], Ultrasound 20 IP TREATMENT 5:30 AM (30 min.) Reina Kenny, PT [facility], Physical Therapy UU TRANSPLANT MEDICATIONS 11:00 AM (120 min.) Em Mohan RN [facility] Patient Learning [place] 21 [place]UST NEW TRANSPLANT 7:00 AM (360 min.) [facility] Sipc Chair 9 Specialty Infusion [facility] Procedure Center 22 R[place] NEW TRANSPLANT 7:00 AM (360 min.) [facility] Sipc Chair 11 [facility] Infusion [facility] Procedure Center 23 RUST NEW TRANSPLANT 7:00 AM (360 min.) [facility] Sip Chair 12 Specialty Infusion and Procedure Center RUST KIDNEY TX DISCHARGE 9:00 AM (30 min.) Kaitlynn Leon MD [facility] Infusion [facility] Procedure Center US RENAL TRANSPLANT 2:00 PM (60 min.) [address] 24 RUST NEW TRANSPLANT 7:00 AM (360 min.) [facility] Sipc Bed 14 Specialty Infusion and Procedure Center RUST SIPC RETURN 9:00 AM (30 min.) Kaitlynn Leon MD [facility] 25 26 RUST SIPC PROCEDURE 7:00 AM (60 min.) [facility] Sipc Chair 9 Specialty Infusion and Procedure Center RUST SIPC RETURN 8:00 AM (30 min.) Kaitlynn Leon MD [facility]ty Infusion [facility] Procedure Center 27 28 29 30 RUST NEW 9:00 AM (30 min.) [facility] Cvc Consult [facility] Heart RUST KIDNEY POST OP 1:45 PM (15 min.) [...] 4:27 PM CDT Diego Guthrie came to [facility] today for a lab and assess following a Kidney transplant on 02/02/14. Discharge date: 02/08/14 clinic office coordinator: Leandro Kahn Phone number patient can be reached at: [phone] Physical Assessment: See physical assessment located under Document Flowsheets. Incision site: with modesta & slight ecchymosis. Dry dressing changed. Lines: MARGARET drain to bulb suction is draining sero sanguinous fluid. Continues to drain more than 30 ml/day. Pt will have Tuesday off from [facility] and will return for LBA. Gibbs: N/A [...] of care for today: Pt presented to [facility] for labs and assessment. Labs drawn, reviewed with Dr. Leon. Oral phosphorus tablets ordered. Coumadin dose decreased to 5 mg every evening. Pt will have Tuesday off, return and will start with [facility] on TuesdayFebruary 15. Pt's MARGARET [...] will follow up with [facility] on 02/14 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/Kiln Drawer verbalized understanding, all questions answered: YES Discharged [...] Signature INR 2.64 (H) 0.86 - 1.14 [facility] Specimen Anatomical Collection Method Collection Time Receive d Time (Source) Location / / Volume Laterality Blood specimen 02/12/2014 7:41 AM 014 7:43 (specimen) CDT AM CDT Kaitlynn Leon MD LAB - BLOOD ORDERABLES Performing Organization Address City/State/ZIP Code Phon e Number [facility] [address] [place] [address] [facility] Tacrolimus level (02/12/2014 7:41 AM CDT) [facility] gist Method Time Signature Tacrolimus Last 02/11/14 [facility] Dose 1900 [facility] Tacrolimus 8.4 5.0 - [facility] Level 15.0 ug/L [facility] [...] Organization Address City/State/ZIP Code Phon e Number [address] [address] [facility] ([facility]) CBC with platelets differential (02/12/2014 7:41 AM CDT) [facility] gist Method Time Signature WBC 5.0 4.0 - [facility] 11.0 [facility] 10e9/L CAMPUS LABS RBC Count 2.41 (L) 4.4 - 5.9 [facility] 10e12/L [facility]S Hemoglobin 7.4 (L) 13.3 - [facility] 17.7 g/dL [facility] Hematocrit 22.3 (L) 40.0 - [facility] 53.0 % [facility] MCV 93 78 - 100 [facility] fl [facility] MCH 30.7 26.5 - [facility] 33.0 pg [facility] MCHC 33.2 31.5 - [facility] 36.5 g/dL [facility] RDW 14.5 10.0 - [facility] 15.0 % [facility]S Platelet Count 95 (L) 150 - 450 [facility] 10e9/L [facility] Diff Method Automated [facility] Method [facility] % Neutrophils 85.2 % [facility] % Lymphocytes 5.6 % [facility] % Monocytes 4.6 % [facility] % Eosinophils 4.2 % [facility] % Basophils 0.2 % [facility] % Immature 0.2 % [facility] Granulocytes [facility] Absolute 4.3 1.6 - 8.3 [facility] Neutrophil 10e9/L [facility] Absolute 0.3 (L) 0.8 - 5.3 [facility] Lymphocytes 10e9/L [facility] Absolute 0.2 0.0 - 1.3 [facility] Monocytes 10e9/L [facility] Absolute 0.2 0.0 - 0.7 [facility] Eosinophils 10e9/L [facility] Absolute 0.0 0.0 - 0.2 [facility] Basophils 10e9/L [facility] Abs Immature 0.0 0 - 0.4 [facility] Granulocytes 10e9/L [facility]S Specimen Anatomical Collection Method Collection Time Receive d Time (Source) Location / / Volume Laterality Blood specimen 02/12/2014 7:41 AM 014 7:43 (specimen) CDT AM CDT Naim S Edward MD LAB - BLOOD ORDERABLES Performing Organization Address City/State/ZIP Code Phon e Number [facility] [address] LABS (ABNORMAL) Phosphorus (02/12/2014 7:41 AM CDT) athologist Signature Phosphorus 1.7 (L) 2.5 - 4.5 [facility] mg/dL COM[facility] LABS Specimen Anatomical Collection Method Collection Time Receive d Time (Source) Location / / Volume Laterality Blood specimen 02/12/2014 7:41 AM 014 7:43 (specimen) CDT AM CDT Kaitlynn Leon MD LAB - BLOOD ORDERABLES Performing Organization Address City/State/ZIP Code Phon e Number [facility] [address] [place], [place] [id number] [place] [address] LABS Magnesium (02/12/2014 7:41 AM CDT) athologist Signature Magnesium 1.8 1.6 - 2.3 [facility] mg/dL COM[facility] LABS Specimen Anatomical Collection Method Collection Time Receive d Time (Source) Location / / Volume Laterality Blood specimen 02/12/2014 7:41 AM 014 7:43 (specimen) CDT AM CDT Kaitlynn Leon MD LAB - BLOOD ORDERABLES Performing Organization Address City/State/ZIP Code Phon e Number [facility] [address] [place], [place] [phone] [place] [address] LABS (ABNORMAL) Basic metabolic panel (02/12/2014 7:41 AM CDT) [facility] gist Method Time Signature Sodium 142 133 - 144 [facility] mmol/L [facility]S Potassium 4.9 3.4 - 5.3 [facility] mmol/L [facility]S Chloride 113 (H) 94 - 109 [facility] mmol/L [facility]S Carbon Dioxide 21 20 - 32 [facility] mmol/L [facility] Anion Gap 9 6 - 17 [facility] mmol/L [facility]S Glucose 127 (H) 60 - 99 [facility] mg/dL [facility]S Urea Nitrogen 24 7 - 30 [facility] mg/dL [facility]S Creatinine 1.92 (H) 0.66 - [facility] 1.25 mg/dL [facility] GFR Estimate 36 (L) >60 [facility] mL/min/1.7 [place] m2 CAMPUS LABS GFR Estimate If 43 (L) >60 [facility] Black mL/min/1.7 [place] m2 CAMPUS LABS Calcium 8.9 8.5 - 10.4 [facility] mg/dL [facility] LABS Specimen Anatomical Collection Method Collection Time Receive d Time (Source) Location / / Volume Laterality Blood specimen 02/12/2014 7:41 AM 014 7:43 (specimen) CDT AM CDT Kaitlynn Leon MD LAB - BLOOD ORDERABLES Performing Organization Address City/State/ZIP Code Phon e Number [facility] [address] [place] [address] [facility]S documented in this encounter [...] after. documented in this encounter Care Teams House Father Relationship Specialty Start Date End Date Momo Forbes PCP - General Family Practice 01/02/14 [facility] [address] [place] [address] Ingrid Santana, RN Registered Nurse Transplant 02/10/12 10/01/15 documented as of this encounter
--- OUTSIDE RECORDS SUMMARY | 2022-05-19 11:42 | XMS_ITS | Encounter Summary ---
:1950 Author Organization [place] Address [facility] [place] [address] Care Team Providers Name Role Phone Toña Jones MD Primary Care Provider Ingrid Santana RN Unavailable Reason for Visit Reason Onset Date Comments Transplant 12/19/2013 Kidney waitlist appo intments Encounter Details Date Type Department Care Team Description 12/19/2013 Telephone The Transplant Edda Nash, Provider Transplant (Kidney 2nd Floor, Clinic 2A waitlist appointments) Tommy [address] [phone] Social History Tobacco Use Types Packs/Day Years [...] filedocumented in this encounter Care Teams Certified Fire Investigator Relationship Specialty Start Date End Date Toña Jones MD PCP - General Nephrology 11/25/11 01/01/14 Ingrid Santana, RN Registered Nurse Transplant 02/10/12 10/01/15 documented as of this encounter
--- OUTSIDE RECORDS SUMMARY | 2022-05-19 11:42 | XMS_ITS | Encounter Summary ---
:1950 Author Organization [place] Address [address] [place] [address] Care Team Providers Name Role Phone Ingrid Santana RN Unavailable Momo Forbes Primary Care Provider Encounter Details Date Type Department Care Team Description 01/21/2014 Results Only LABORATORY RESULTS Mingo Dangelo MD [address] [facility] 195 [place] [address] (Wo rk) Social History Tobacco [...] HLA Lukasz Class II Single Antigen (01/21/2014) [facility] Method Time Signature SA2 Test SA [...] Phon e Number [facility] LABORAT[facility] Immunology/Histocompatabil [place], [place] [address] ity [facility]alth [facility] [address] Building, Room 3-580 HISTOTRAC documented in this encounter Visit Diagnoses Not on filedocumented in this encounter Care Teams Parking Station Attendant Relationship Specialty Start Date End Date Momo Forbes PCP - General Family Practice 01/02/14 [facility] [address] [place] [address] Ingrid Santana, RN Registered Nurse Transplant 02/10/12 10/01/15 documented as of this encounter
--- OUTSIDE RECORDS SUMMARY | 2022-05-19 11:42 | XMS_ITS | Encounter Summary ---
:1950 Author Organization [place] Address [facility] [place] [address] Care Team Providers Name Role Phone Toña [...] HLA Lukasz Class II Single Antigen (04/16/2013) [facility] gist Method Time Signature SA2 Test [...] Phon e Number [facility] Immunology/Histocompatabil [place], [place] [address] [facility] [address] Building, Room 3-580 HISTOTRAC documented in this encounter Visit Diagnoses Not on filedocumented in this encounter Care Teams Director Of Global Sales Relationship Specialty Start Date End Date Toña Jones MD PCP - General Nephrology 11/25/11 01/01/14 Ingrid Santana RN Registered Nurse Transplant 02/10/12 10/01/15 documented as of this encounter
--- OUTSIDE RECORDS SUMMARY | 2022-05-19 11:42 | XMS_ITS | Encounter Summary ---
:1950 Author Organization [place] Address [address] [facility] [place] [address] Care Team Providers Name Role Phone Toña [...] Ump Sot Surgery 2nd Floor, Clinic 2A [place] [phone] Referral ID Status Reason Start Date Expiration Date Visits Requ ested Visits Authorized [id number] Closed 12/10/2013 06/08/2014 1 1 Consultation - Closed Specialty Diagnoses / Procedures Referred By Contact Refer red To Contact Diagnoses Organ transplant candidate ESRD (end stage renal disease) on dialysis (H) DM (diabetes mellitus), type 2 (H) [facility] Sot Surgery [facility] Floor, [facility] [address]A [address] [phone] Referral ID Status Reason Start Date Expiration Date Visits Requ ested Visits Authorized [id number] Closed 12/10/2013 06/08/2014 1 1 Encounter Details Date Type Department Care Team Description 12/07/2013 Orders Only Transplant Surgery Nazia March LPN Organ transplant candidate (Primary Dx); Clinic Screening for other and unsp ecified cardiovascular conditions; 2nd Floor, Clinic 2A ESRD (end stage renal diseas e) on dialysis (H); Tommy Wilburn DM (madeleine betes mellitus), type 2 (H) [address] [phone] Social History Tobacco Use [...] uncontrolled documented in this encounter Care Teams Health Service Coordinator Relationship Specialty Start Date End Date Toña Jones MD PCP - General Nephrology 11/25/11 01/01/14 Siers, Ingrid A, RN Registered Nurse Transplant 02/10/12 10/01/15 documented as of this encounter
--- OUTSIDE RECORDS SUMMARY | 2022-05-19 11:42 | XMS_ITS | Encounter Summary ---
:1950 Author Organization [place] Address [address] [place] [address] Care Team Providers Name Role Phone Ingrid Santana RN Unavailable Momo Forbes Primary Care Provider Encounter Details Date Type Department Care Team Description 01/21/2014 Results Only LABORATORY RESULTS Mingo [facility]angelo MD [facility] [address] [place] [address] (Wo rk) Social History Tobacco [...] HLA Lukasz Class I Single Antigen (01/21/2014) [facility] Method Time Signature SA1 Test SA [...] Phon e Number [facility] LABORATORY Immunology/Histocompatabil [place], [place] [address] ity [facility] [address] Building, Room 3-580 HISTOTRAC documented in this encounter Visit Diagnoses Not on filedocumented in this encounter Care Teams Relations Coordinator Relationship Specialty Start Date End Date Momo Forbes PCP - General Family Practice 01/02/14 [facility] [address] [place] [address] Ingrid Santana, RN Registered Nurse Transplant 02/10/12 10/01/15 documented as of this encounter
--- OUTSIDE RECORDS SUMMARY | 2022-05-19 11:42 | XMS_ITS | Encounter Summary ---
:1950 Author Organization [place] Address [address] [place] [address] Care Team Providers Name Role Phone Toña [...] HLA Lukasz Class I Single Antigen (04/16/2013) [facility] gist Method Time Signature SA1 Test [...] Phon e Number [facility] LABORATORY Immunology/Histocompatabil [place], [place] [address] [facility] [address] Building, Room 3-580 HISTOTRAC documented in this encounter Visit Diagnoses Not on filedocumented in this encounter Care Teams Seismology Technical Officer Relationship Specialty Start Date End Date Toña Jones MD PCP - General Nephrology 11/25/11 01/01/14 Ingrid Santana RN Registered Nurse Transplant 02/10/12 10/01/15 documented as of this encounter
--- OUTSIDE RECORDS SUMMARY | 2022-05-19 11:42 | XMS_ITS | Encounter Summary ---
:1950 Author Organization [place] Address [facility] [place] [address] Care Team Providers Name Role Phone Toña [...] on filedocumented in this encounter Care Teams Ruby Rails Developer Relationship Specialty Start Date End Date Toña Jones MD PCP - General Nephrology 11/25/11 01/01/14 Momo Forbes PCP - General Family Practice 01/02/14 [facility] [address] [place] [address] Ingrid Santana, RN Registered Nurse Transplant 02/10/12 10/01/15 documented as of this encounter
--- OUTSIDE RECORDS SUMMARY | 2022-05-19 11:42 | XMS_ITS | Encounter Summary ---
:1950 Author Organization [place] Address [address] [place] [address] Care Team Providers Name Role Phone Ingrid Santana RN Unavailable Momo Forbes Primary Care Provider Encounter Details Date Type Department Care Team Description 01/20/2014 Orders Only [facility], [facility], [facility] jm [place] [address] [phone] [place] [address] [address] [place] [address] (Wo rk) Social History Tobacco [...] Signature Tacrolimus Last 02/14/[address] [facility] [address] [facility] LABS Tacrolimus 5.9 5.0 - [facility] Level 15.0 ug/L [facility] LABS Comment: Tacrolimus Reference Range [...] Phon e Number [facility] 500 [place] [address] [facility] documented in this encounter Visit Diagnoses Not on filedocumented in this encounter Care Teams Transition Lead Relationship Specialty Start Date End Date Momo Forbes PCP - General Family Practice 01/02/14 [facility] [address] [place] [phone] Ingrid Santana, RN Registered Nurse Transplant 02/10/12 documented as of this encounter
--- OUTSIDE RECORDS SUMMARY | 2022-05-19 11:42 | XMS_ITS | Encounter Summary ---
:1950 Author Organization [place] Address [address] [place] [address] Care Team Providers Name Role Phone Toña Jones MD Primary Care Provider Ingrid Santana RN Unavailable Encounter Details Date Type Department Care Team Description 07/30/2013 Results Only LABORATORY RESULTS Mingo Dangelo MD [address] [facility] 195 [place] [address] (Wo rk) Social History Tobacco [...] HLA Lukasz Class II Single Antigen (07/30/2013) [facility] Method Time Signature SA2 Test Single [...] / Volume Laterality 07/30/2013 07/31/2013 2:10 PM TALENT ACQUISITION PROGRAM MANAGER Mingo Dangelo MD LAB - IMMUNOLOGY ORDERABLES Performing Organization Address City/State/ZIP Code Phon e Number [facility] Immunology/Histocompatabil [place], [place] [address] ity [facility] [address] Building, Room 3-580 HISTOTRAC documented in this encounter Visit Diagnoses Not on filedocumented in this encounter Care Teams Potato Chip Processing Supervisor Relationship Specialty Start Date End Date Toña Jones MD PCP - General Nephrology 11/25/11 01/01/14 Ingrid Santana RN Registered Nurse Transplant 02/10/12 10/01/15 documented as of this encounter
--- OUTSIDE RECORDS SUMMARY | 2022-05-19 11:42 | XMS_ITS | Encounter Summary ---
:1950 Author Organization [place] Address [facility]. [address] Care Team Providers Name Role Phone Toña Jones MD Primary Care Provider Ingrid Santana RN Unavailable Encounter Details Date Type Department Care Team Description 12/10/2013 Telephone Transplant Surgery C Nazia Bledsoe LPN 2nd Floor, Clinic [address] [place] [address] [phone] Social History Tobacco Use Types Packs/Day [...] on filedocumented in this encounter Care Teams Furniture Builder Relationship Specialty Start Date End Date Toña Jones MD PCP - General Nephrology 11/25/11 Ingrid Santana, RN Registered Nurse Transplant 02/10/12 documented as of this encounter
--- OUTSIDE RECORDS SUMMARY | 2022-05-19 11:42 | XMS_ITS | Encounter Summary ---
:1950 Author Organization [place] Address [address] [place] [address] Care Team Providers Name Role Phone Tñoa Jones MD Primary Care Provider Ingrid Santana RN Unavailable Encounter Details Date Type Department Care Team Description 11/05/2013 Results Only LABORATORY RESULTS Barbara Bradley MD [address] [place], [place] [address] Social History Tobacco Use [...] I Single Antigen (11/05/2013 7:20 AM CDT) [facility] Method Time Signature SA1 Test SA [...] Phon e Number [facility] Immunology/Histocompatabil [place], [place] [address] ity [facility] [address] [facility] [address] Building, Room 3-580 HISTOTRAC documented in this encounter Visit Diagnoses Not on filedocumented in this encounter Care Teams Glaucoma Specialist Relationship Specialty Start Date End Date Toña Jones MD PCP - General Nephrology 11/25/11 01/01/14 Ingrid Santana, RN Registered Nurse Transplant 02/10/12 10/01/15 documented as of this encounter
--- OUTSIDE RECORDS SUMMARY | 2022-05-19 11:42 | XMS_ITS | Encounter Summary ---
:1950 Author Organization [place] Address [address] [place] [address] Care Team Providers Name Role Phone Ingrid Santana RN Unavailable Momo Forbes Primary Care Provider Reason for Visit Reason Onset Date Comments Pre Visit Planning - Done 01/30/2014 EKG: pre op: [age] yo M, here for continued clearance for possib le kidney txp. Encounter Details Date Type Department Care Team Description 01/30/2014 PRE VISIT [facility] Barbara Bradley Pre Visit Planning - Physicians Orestes Licona MD Done (EKG: pre op: 63 [address] [place], [place] [address] continued clearance 4th Floor, Clinic 4B for possible kidney [facility] 88 txp.) [address] [place] [phone] Social History Tobacco Use Types Packs/Day Years [...] On HD since Aug 2011. No past [place], stress tests or coronary angiogorams. No chest [...] disease documented in this encounter Care Teams Cricket Coach Relationship Specialty Start Date End Date Momo Forbes PCP - General Family Practice 01/02/14 [facility] [address] [place] [address] Ingrid Santana, RN Registered Nurse Transplant 02/10/12 10/01/15 documented as of this encounter
--- OUTSIDE RECORDS SUMMARY | 2022-05-19 11:42 | XMS_ITS | Encounter Summary ---
:1950 Author Organization [place] Address [facility] [place] [address] Care Team Providers Name Role Phone Ingrid Santana RN Unavailable Momo Forbes Primary Care Provider Reason for Visit Reason Onset Date Comments Transplant 02/02/2014 Kidney Offer Encounter Details Date Type Department Care Team Description 02/02/2014 Telephone Transplant Surgery [facility] Rosario Tran splant ([facility] RN Offer) 2nd Floor, [address] [phone] Social History Tobacco Use Types Packs/Day Years [...] on filedocumented in this encounter Care Teams Cone Tender Relationship Specialty Start Date End Date Momo Forbes PCP - General Family Practice 01/02/14 [facility] [address] [place] [address] Ingrid Santana RN Registered Nurse Transplant 02/10/12 10/01/15 documented as of this encounter
--- OUTSIDE RECORDS SUMMARY | 2022-05-19 11:42 | XMS_ITS | Encounter Summary ---
:1950 Author Organization [facility] Address [address] [place] [address] Care Team Providers Name Role Phone Toña Jones MD Primary Care Provider Ingrid Santana RN Unavailable Encounter Details Date Type Department Care Team Description 11/05/2013 Results Only LABORATORY RESULTS Barbara Bradley MD [address] [place], [place] [address] Social History Tobacco Use [...] II Single Antigen (11/05/2013 7:20 AM CDT) [facility] Method Time Signature SA2 Test SA [...] Phon e Number [facility] Immunology/Histocompatabil [place], [place] [address] ity [facility] [address], [address]580 HISTOTRAC documented in this encounter Visit Diagnoses Not on filedocumented in this encounter Care Teams Brick Cleaner Relationship Specialty Start Date End Date Toña Jones MD PCP - General Nephrology 11/25/11 01/01/14 Ingrid Santana RN Registered Nurse Transplant 02/10/12 10/01/15 documented as of this encounter
--- OUTSIDE RECORDS SUMMARY | 2022-05-19 11:42 | XMS_ITS | Encounter Summary ---
:1950 Author Organization [facility] Address [address] [place] [address] Care Team Providers Name Role Phone Toña Jones MD Primary Care Provider Ingrid Santana RN Unavailable Encounter Details Date Type Department Care Team Description 07/30/2013 Results Only LABORATORY RESULTS Mingo Dangelo MD [address] [facility] [address] [place] [address] (Wo rk) Social History Tobacco [...] HLA Lukasz Class I Single Antigen (07/30/2013) [facility] Method Time Signature SA1 Test Single Antigen [...] / Volume Laterality 07/30/2013 07/31/2013 2:10 PM GLUE MIXER Mingo Dangelo MD LAB - IMMUNOLOGY ORDERABLES Performing Organization Address City/State/ZIP Code Phon e Number [facility] Immunology/Histocompatabil [place], [place] [address] ity [facility] [address], [address]580 HISTOTRAC documented in this encounter Visit Diagnoses Not on filedocumented in this encounter Care Teams Shipmaster Relationship Specialty Start Date End Date Toña Jones MD PCP - General Nephrology 11/25/11 01/01/14 Ingrid Santana RN Registered Nurse Transplant 02/10/12 10/01/15 documented as of this encounter
--- OUTSIDE RECORDS SUMMARY | 2022-05-19 11:42 | XMS_ITS | Encounter Summary ---
:1950 Author Organization [facility] Address [address] [place] [address] Care Team Providers Name Role Phone Ingrid Santana RN Unavailable Momo Forbes Primary Care Provider Reason for Visit Auth/Cert - Closed Specialty Diagnoses / Procedures Referred By Contact Refer red To Contact Med Surg Diagnoses end stage renal disease dialysis End stage renal failure on dialysis Renal Failure Uu U7a Procedures TRANSPLANT KIDNEY RECIPIENT DONOR [address] [place] [address] Phone: Referral ID Status Reason Start Date Expiration Date Visits Requ ested Visits Authorized [id number] Closed 02/04/2014 08/03/2014 1 1 Encounter Details Date Type Department Care Team Description 02/02/2014 Surgery [facility] Migel Merchant , Kidney Transplant , PeriOp Services ureteral stent [address] [place] [address] [address] [address] [place], [place] [address] (Wo rk) Surgery Details Date/Time Status Location [...] Physician Discharge Summary Patient ID: Diego Guthrie [id number] 63 year old 1950 Admit date: 02/02/2014 [...] Take 1 tablet by mouth daily. B iqdwyey-G-tlvil acid (NEPHROCAPS) 1 MG capsule Take 1 [...] located on the second floor of the [facility] next to the Transplant Clinic. [...] of these appointments you will meetwith a sr. logistics analyst and meet your incident coordinator. Your nurse will also be in communication with your surgeon and sr. logistics analyst as needed. The direct number to the [facility] is [phone]. In the [facility] [...] the hospital. This will be located in [facility] transplant surgery clinic on the second floor.Your transplant surgeon is: Dr. Merchant. You have a ureteral stent in place which needs to be removed in 4-6 weeks. If a recreation program specialist does not contact you for this, please contact your incident coordinator. If you have modesta in place, they will be removed in 3 weeks after operation. Notify your coordinator if you have pain over your kidney, fever greater than 101.5F, or decreased urine output. Notify your coordinator immediately if you are ever unable to take your immunosuppressive medications for any reason. Home Inspector [phone] Diet recommendations post-transplant: Heart healthy dietary habits termite renewal inspector (low saturated/trans fat, low sodium). High protein [...] >2. He can be seen by any commercial sales representative in the outpatient setting for coordination. Continue metoprolol 25 po bid until he is r e-evaluated. We did attempt inpatient REFUGIO guided cardioversion, but the patient developed significant bleeding while on heparin. José Miguel Alvarez M.D. Soil Tester Joseph Quintana MD - 02/08/2014 12:35 PM [...] Dr. Quintana. Sina Robison MD Nephrology Fellow [phone] Attestation: This patient has been seen and [...] Ramires RN - 02/07/2014 2:25 PM CDT Body Mechanic D: Diego Guthrie 63 year old male POD #5 s/p DDKT for ESRD 2/[address] Diaz note today. Per Dr Diaz, pt will most likely be ready for d/c to home tomorrow and will return to [facility] for 5 days at 0700. [...] him. Pt does not know where the [facility] or transplant clinic is, I told him and he replied I will find it. Pt does not care which [facility] agency will follow him--There are only 2 to [phone] --I called and left a message with Estrella Fletcher and I fax'd his records tothem--pt will need start of care approx Thursday 02/15. Pt is new on warfarin and I called his PCP's office and they have INR nurses Tuesday-Tuesday their fax # is [phone] (when HHN visits are completed --pt will call main clinic # to schedule INR draws). 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 I verified his address and phone #(is his cell) on the facesheet. Pt has not met his OP rn managed care: Leandro Kahn, yet--I sent Leandro an in [facility] management message today-with plan. A: possible d/c to home Tuesday P: see above-will follow and will call [facility] to confirm they can accept him. Joseph [...] Dr. Quintana. Sina Robison MD Nephrology Fellow [phone] Attestation: This patient has been seen and [...] assistance Medical Decision Making: Medium Subsequent visit 40082 (moderate level decision making) PATO/Fellow/Resident Provider: Adeline [...] Rodriguez MD - 02/06/2014 4:25 PM CDT [facility] Cardiology Progress Note I have seen [...] for a few weeks without ill effect. Josehp Rodriguez MD Assessment and Recommendation: Assessment: 63 [...] drops. Seen and discussed with Dr. Quintana. iSna Robison MD Nephrology Fellow [phone] Attestation: This patient has been seen and [...] focal deficit No pronator drift. Tremorabsent. Line: [facility] Data: CMP Recent Labs Lab 02/06/14 [...] Dr. Quintana. Sina Robison MD Nephrology Fellow [phone] Attestation: This patient has been seen and [...] Kahn RN - 02/05/2014 4:47 PM CDT SERVICE ADVOCATE CONTACT NOTE I met with the patient and his yesterday at [facility] PCU-6B (telemetry unit) to discuss transition from inpatient to outpatient care following kidney translantation. 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 He has slow graft function; however, his [...] the plan for daily visits to the [facility] for 5 days after discharge [...] meet with the patient again in the [facility] following discharge from [facility]. Joseph Rodriguez MD - 02/05/2014 11:16 AM CDT [facility] Cardiology Progress Note I have seen [...] plan for REFUGIO cardioversion tomorrow, NPO at PR (orders placed) -- continue heparin and initiate [...] on 02/02/2014. Pt lives alone in [place] though reports that his girlfriend in in the process of moving in with him. Pt girlfriend, Tete, will be present when pt returns home but she works sticker hand. Pt was on dialysis for 2 1/2 years prior to transplant. Pt works independently but reports that he currently has no income coming in. Pt has primary insurancethrough Medicare and Secondary insurance through [employer]. Pt has no co-pays for his immunosuppressants and a high out of pocket cost for Valcyte, SW to look into grants for pt for Valcyte. I: Met with pt to introduce this radio script writer and explain sw role and services available while inpatient in the hospital. Asked if pt had any questions or concerns and completed an assessment of psychosocialneeds post transplant. Provided education about expectations and requirements post discharge like fol low up in the [facility]. Pt is unsure yet if [...] needs arise prior to discharge. CECY Kearns, LOCK OPERATOR Indu Calixto MD - 02/05/2014 1:50 AM [...] Adds Type of Visit Initial PT Evaluation It Architecture Consultant It Architecture Consultant Present no Language Thai Living Environment (R) Lives With alone Living Arrangements ([facility]) Home Accessibility no concerns Number of [...] up when pt is available. CECY Kearns, LOCK OPERATOR [phone] phone [phone] pager Joseph Quintana MD - 02/04/2014 11:51 [...] Dr. Quintana. Sina Robison MD Nephrology Fellow [phone] Attestation: This patient has been seen and [...] for this basename: PTHI, in the last 95666 hours IRON STUDIES No results found for this basename: IRON, FEB, IRONSAT, THEE, in the last 07516 hours Imaging: All imaging studies reviewed by [...] or equal to 12.0 mlU/mL. Adeline Diaz [phone] Attestation: The patient has been seen and [...] donor kidney transplant, with stent on 02/02/14. PARTS CLASSIFIER donor. Graft function:uncertain, Cr slightly up. Slow [...] . Medical Decision Making: Medium Subsequent visit 40303 (moderate level decision making) PATO/Fellow/Resident Provider: Caitlin [...] note and orders. Migel Merchant MD, PhD emergency operator Abdominal Organ Transplantation Carmelita Rosario, BOGDAN - 02/03/2014 9:38 AM CDT Patient removed from the UNOS waitlist after donor kidney transplant. UNOS ID is [id number]. Rafaela Cardona - 02/03/2014 9:17 AM CDT [...] followed general diet. Patient reports good appetite/intake GRADUATE STUDIES DEAN, no nutrition issues/concnerns. CURRENT NUTRITION ORDERS - [...] DDKT ASSESSED NUTRITION NEEDS: Estimated Energy Needs: 7427-7450+ kcals (25-30+ Kcal/Kg) Justification: maintenance post-transplant Estimated [...] (6- 8 weeks). Rec follow heart-healthy diet termite renewal inspector. Implementation Nutrition education: Provided instruction on post-transplant diet with discussion regarding protein sources and high protein needs in acute post-tx phase. Reviewed recommendations to follow low fat/lowsodium diet termite renewal inspector and discussed heart healthy diet tips. Discussed [...] adjustment. Rafaela Cardona RD, LD Weekend Coverage [phone] Jose Aguirre MD - 02/03/2014 4:57 AM [...] Doing well postoperatively. Pain: Controlled by Dilaudid SNOW FENCE ERECTOR Diet: NPO tonight Volume Status: Borderline low UOP, continue MIVF, 0.9 % NS 500 cc bolus given for low UOP, CVP not accurate, systolic in 100-110 Recheck hemoglobin and potassium normal. Rest of the plan per primary team. Will continue to follow. Jose Aguirre MD PGY-1.................02/03/2014 Surgery Cross Cover Pager:[phone] documented in this encounter H&P Notes Caitlin [...] 1 tablet by mouth daily. ??? B lcbwpjm-K-cyjom acid (NEPHROCAPS) 1 MG capsule Take 1 [...] Transplant Fellow, Caitlin Morales MD Surgery Cross-Cover Pager:[phone] Addendum: Donor 59 yo F PARTS CLASSIFIER, CVA, h/o HTN, CMV+, EBV+. Kidney bx [...] note and orders. Migel Merchant MD, PhD emergency operator Abdominal Organ Transplantation documented in this encounter Consult Notes Joseph Rodriguez MD - 02/04/2014 11:03 AM CDTAssociated Order(s): CARDIOLOGY IP CONSULT [facility] CARDIOLOGY CONSULT SERVICE INITIAL CONSULT NOTE [...] let us know and we will arrange REFUIGO-cardioversion. Joseph Rodriguez MD Reason for consult: New [...] 1 tablet by mouth daily. ??? 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 José Miguel Alvarez MD Soil Tester Pager: [phone] February 04, 2014 Kaitlynn Leon MD - 02/03/2014 9:30 AM CDT Nephrology Initial Consult February 03, 2014 Diego Guthrie Date of : 1950 Date of Admission:02/02/2014 Primary care provider: Momo Forbes Requesting physician: Migel Merchant MD ASSESSMENT AND RECOMMENDATIONS: 1. DDKT - PARTS CLASSIFIER -59 yo women; slow graft function-no immediate need for dialysis , but may require tomorrow if UO does not hand picker. We will monitor Induction with Thymo/Cellcept [...] h/o type 2 Dm, who received DDKT (PARTS CLASSIFIER) on 02/02/2014 donor kidney had severe atherosclerotic [...] ??? Cataract iol, rt/lt both eyes MEDICATIONS: GRADUATE STUDIES DEAN Meds Prior to Admission medications Medication Sig Last Dose Taking? Auth Provider Calcium Carbonate-Vitamin D (CALCIUM + D PO) Take by mouth daily. Reported, Patient lisinopril (PRINIVIL,ZESTRIL) 40 MG tablet Take 40 mg by mouth 2 times daily. Reported, Patient METOPROLOL SUCCINATE PO Take by mouth daily. Reported, Patient aspirin 81 MG tablet Take 1 tablet by mouth daily. Reported, Patient B pitoquh-E-hzsth acid (NEPHROCAPS) 1 MG capsule Take 1 [...] Intravenous Central line Once ??? HYDROmorphone Intravenous SNOW FENCE ERECTOR Infusion Meds ??? 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 Alvin Diego Cardiovascular Disease Fellow [phone] Patient seen and examined by me with [...] Cullen MD, PhD Jarad Cullen MD, PhD [phone] documented in this encounter Nursing Notes Gretta Mary RN - 02/02/2014 11:[address] Owens with Transplant Surgery notified of stat lab results. Magnesium replaced. Dr. Blank with Anesthesia reviewed chest x-ray. CVC not deep enough to give accurate CVP readings, however all lumens aspirate blood well. Patient is ok to transfer to unit 6B per [facility]. documented in this encounter Miscellaneous Notes Plan of Care - Amanda Hernandez RN - 02/08/2014 3:44 PM CDT Problem: IP GENERAL POC-ADULT,OB,BEHAVIORAL FVCPM Goal: Individualization/Patient-Specific Goal (Adult,OB,Behavioral The patient and/or their event representative will achieve their patient-specific goals related [...] Card updated. Report called to Saima in [facility]. Left facility accompanied by s.o at 1600. Plan of Care - Amanda Hernandez RN - 02/08/2014 2:13 PM CDT Problem: IP GENERAL POC-ADULT,OB,BEHAVIORAL FVCPM Goal: Individualization/Patient-Specific Goal (Adult,OB,Behavioral The patient and/or their event representative will achieve their patient-specific goals related [...] Individualization/Patient-Specific Goal (Adult,OB,Behavioral The patient and/or their event representative will achieve their patient-specific goals related [...] Individualization/Patient-Specific Goal (Adult,OB,Behavioral The patient and/or their event representative will achieve their patient-specific goals related [...] Diet recommendations post-transplant: Heart healthy dietary habits termite renewal inspector (low saturated/trans fat, low sodium). High protein diet x 8 weeks. Practice food safety precautions - no fish/seafood x 3 weeks. Inez Luevano MS, RD, LD Pager [phone] Pharmacy-Immunosuppression Monitoring - Em Vasquez [facility] - 02/07/2014 9:06 AM CDT [...] will continue to follow. Em Vasquez, Pharm.D., [facility] Pager [phone] Plan of Care - Annmarie Colby RN - 02/07/2014 5:11 AM CDT Problem: IP GENERAL POC-ADULT,OB,BEHAVIORAL FVCPM Goal: Individualization/Patient-Specific Goal (Adult,OB,Behavioral The patient and/or their event representative will achieve their patient-specific goals related [...] Individualization/Patient-Specific Goal (Adult,OB,Behavioral The patient and/or their event representative will achieve their patient-specific goals related [...] increased fluid intake, urine color is becoming field artillery senior sergeant( tea color/bloody- >dark sy/tea color). Incisional pain [...] Physical Therapy Goals The patient and/or their event representative will achieve their patient-specific goals related [...] Physical Therapy Goals The patient and/or their event representative will achieve their patient-specific goals related [...] Individualization/Patient-Specific Goal (Adult,OB,Behavioral The patient and/or their event representative will achieve their patient-specific goals related [...] Individualization/Patient-Specific Goal (Adult,OB,Behavioral The patient and/or their event representative will achieve their patient-specific goals related [...] Physical Therapy Goals The patient and/or their event representative will achieve their patient-specific goals related [...] at this time. Pharmacy - Cayetano Olivera, [facility] - 02/05/2014 12:26 PM CDT Visited 02/05/2014 in hospital room prior to discharge to review medications, review discharge process and review specialty pharmacy program. Med Review: Reviewed patient's medications and medical conditions. Patient would like to use [facility] to manage all medications. Medcard: [...] Specialty Pharmacy review: Discussed the benefits of [facility] and Diego has enrolled. Also gave him supplies (blood pressure cuff, thermometer, and pill box) Other concerns: No other concerns at this time. No further questions for this pharmacist. Inez Cox, Student Pharmacist Potato Chip Packaging Machine Operator [facility] [address] [place] [address] Cayetano Olivera, Pharmacist [facility] [phone] Pharmacy-Anticoagulation Service - Teresa Wright [facility] - 02/05/2014 11:29 AM CDT [...] Individualization/Patient-Specific Goal (Adult,OB,Behavioral The patient and/or their event representative will achieve their patient-specific goals related [...] melonie hard time making full sentences. When radio script writer came on shift at 8pm patient [...] Individualization/Patient-Specific Goal (Adult,OB,Behavioral The patient and/or their event representative will achieve their patient-specific goals related [...] Physical Therapy Goals The patient and/or their event representative will achieve their patient-specific goals related [...] by friend. Pt transferred to chair, VSS, desk monitor on, oriented to room. Pharmacy-Admission Medication History - Teresa Wright, [facility] - 02/04/2014 11:54 AM CDT Admission medication history interview status for the 02/02/2014 admission is complete. See [facility] admission navigator for allergy information, prior to admission medications and immunization status. Medication history interview sources (including written lists, pill bottles, clinic record):Patient Medication history source reliability:Good Primary pharmacy:[facility] phone number: [phone] Changes made to GRADUATE STUDIES DEAN medication list (reason) Added: Vitamin D 1,000 [...] at Unknown time Yes Reported, Patient B vwuvomu-E-rrbcn acid (NEPHROCAPS) 1 MG capsule Take 1 [...] Individualization/Patient-Specific Goal (Adult,OB,Behavioral The patient and/or their event representative will achieve their patient-specific goals related [...] 45 minutes and remains in A-fib via security monitor. Repeat EKG around 1000 showed continued [...] Physical Therapy Goals The patient and/or their event representative will achieve their patient-specific goals related to the plan of care. The patient-specific goals include: PT 7A: HOLD for AM per RN - pt with a-fib this morning. Plan of Care - Alisson Diane RN - 02/04/2014 6:45 AM CDT Problem: IP GENERAL POC-ADULT,OB,BEHAVIORAL FVCPM Goal: Individualization/Patient-Specific Goal (Adult,OB,Behavioral The patient and/or their event representative will achieve their patient-specific goals related [...] Individualization/Patient-Specific Goal (Adult,OB,Behavioral The patient and/or their event representative will achieve their patient-specific goals related [...] to yellow. Pharmacy-Transplant Note - Davina Schuster [facility] - 02/03/2014 4:28 PM CDT [...] Individualization/Patient-Specific Goal (Adult,OB,Behavioral The patient and/or their event representative will achieve their patient-specific goals related to the plan of care. The patient-specific goals include: 1. Pt will remain hemodynamically stable 2. Pt will have adequate urine output 3. Pt will be free of falls. RD Patient will verbalize understanding of 3 important aspects of post-transplant diet guidelines. PO intake >50% meals TID once diet adv. Report taken from [facility] on 6B; patient transferred to from 6B via wheelchair around 1500. Patientsettled into room, oriented to floor/room and call light. VS taken. Orders released. Continue ordersas written and notify MD with any concerns. Plan of Care - Sofie Christianson RN - 02/03/2014 2:59 PM CDT Problem: IP GENERAL POC-ADULT,OB,BEHAVIORAL FVCPM Goal: Plan of Care Review (Adult,OB,Behavioral) The patient and/or their event representative will communicate an understanding of their [...] algorithm 2, 1 unit now. Pt still vmgzzdeug8V NC to maintain sats above 90 % [...] Individualization/Patient-Specific Goal (Adult,OB,Behavioral The patient and/or their event representative will achieve their patient-specific goals related [...] Intermittent sharp R lower abd pain. Dilaudid SNOW FENCE ERECTOR encouraged, increased to 0.2/10/1.2. R lower abd [...] 0200 made 20cc/hr, at 0300 made 30cc/hr. Texline/red tinged urine. MIVF @ 125/hr. VSS. HR 70s, BPs 100s-120s/60s. No new orders at this time. Will continue to monitor. Plan of Care - Tasia Andrade, RN - 02/03/2014 12:00 AM CDT Pt arrived to from PACU, s/p DDKT. A&O x3-4. VSS. Texline/red urine output. Small amt drainage on abd [...] to Type 2 Diabetes. [facility] PARTS CLASSIFIER (expanded criteria donor) kidney transplant. After discussing [...] The UNOS number of the donor is [id number]. The crossmatch was done prospectively; and the [...] reconstruction. FACULTY SURGEON: Migel Merchant M.D., Ph.D. FELLOW/APPEALS REPRESENTATIVE SURGEON: Caitlin Owens MD fellow ANESTHESIA: None VERIFICATION: Prior to incision, I verified the donor ABO and recipient ABO. After the donor organ arrived to the operating room and prior to anastamosis, I visually verified that the donor identification, blood type, and other vital data were compatible with the recipient. FINDINGS: Donor type: PARTS CLASSIFIER (expanded criteria donor) Organ: kidney Graft Injury: [...] Individualization/Patient-Specific Goal (Adult,OB,Behavioral The patient and/or their event representative will achieve their patient-specific goals related [...] Individualization/Patient-Specific Goal (Adult,OB,Behavioral The patient and/or their event representative will achieve their patient-specific goals related [...] LARES - ROBERT POCT Performing Organization Address City/State/[facility] Code Phon e Number FV [...] - ROBERT POCT Performing Organization Address City/[facility]/ZIP Code Phon e Number FV POINT OF CARE TEST, GLUCOSE POINT OF CARE TEST, GLUCOSE Tacrolimus level (02/08/2014 6:42 AM CDT) Patholo gist Method Time Signature Tacrolimus Not Provided [facility] Last Dose [facility] Tacrolimus 10.0 5.0 - [facility] Level 15.0 ug/L MEDICAL [...] - BLOOD ORDERABLES Performing Organization Address City/[facility]/ZIP Code Phon e Number [facility] [address] LABS (ABNORMAL) INR (02/08/2014 6:42 AM CDT) P athologist Signature INR 1.28 (H) 0.86 - 1.14 [facility] LABS Specimen Anatomical Collection Method Collection Time Receive d Time (Source) Location / / Volume Laterality Blood specimen 02/08/2014 6:42 AM 014 6:43 (specimen) CDT AM CDT Omaira Chavez PA-C LAB - BLOOD ORDERABLES Performing Organization Address City/[facility]/ZIP Code Phon e Number [facility] [address] LABS (ABNORMAL) Basic metabolic panel (02/08/2014 6:42 AM CDT) Patholo gist Method Time Signature Sodium 144 133 - 144 [facility] mmol/L [facility] Potassium 3.9 3.4 - 5.3 [facility] mmol/L [facility] Chloride 110 (H) 94 - 109 [facility] mmol/L [facility] Carbon Dioxide 25 20 - 32 [facility] mmol/L [facility] Anion Gap 8 6 - 17 [facility] mmol/L [facility] Glucose 144 (H) 60 - 99 [facility] mg/dL [facility] Urea Nitrogen 66 (H) 7 - 30 [facility] mg/dL [facility] Creatinine 2.38 (H) 0.66 - [facility] 1.25 mg/dL [facility] GFR Estimate 28 (L) >60 [facility] mL/min/1.7 [place] m2 [facility] LABS GFR Estimate If 34 (L) >60 [facility] [place] mL/min/1.7 [place] m2 [facility] LABS Calcium 9.4 8.5 - 10.4 [facility] mg/dL [facility] Specimen Anatomical Collection Method Collection Time Receive d Time (Source) Location / / Volume Laterality Blood specimen 02/08/2014 6:42 AM 014 6:43 (specimen) CDT AM CDT Omaira Chavez PA-C LAB - BLOOD ORDERABLES Performing Organization Address City/State/ZIP Code Phon e Number [facility] [address] LABS Phosphorus (02/08/2014 6:42 AM CDT) P athologist Signature Phosphorus 2.5 2.5 - 4.5 [facility] mg/dL [place] LABS Specimen Anatomical Collection Method Collection Time Receive d Time (Source) Location / / Volume Laterality Blood specimen 02/08/2014 6:42 AM 014 6:43 (specimen) CDT AM CDT Omaira Chavez PA-C LAB - BLOOD ORDERABLES Performing Organization Address City/State/ZIP Code Phon e Number [facility] [address] LABS Magnesium (02/08/2014 6:42 AM CDT) P athologist Signature Magnesium 2.2 1.6 - 2.3 [facility] mg/dL [place] LABS Specimen Anatomical Collection Method Collection Time Receive d Time (Source) Location / / Volume Laterality Blood specimen 02/08/2014 6:42 AM 014 6:43 (specimen) CDT AM CDT Omaira Chavez PA-C LAB - BLOOD ORDERABLES Performing Organization Address City/[facility]/ZIP Code Phon e Number [facility] [address] LABS (ABNORMAL) CBC with platelets differential (02/08/2014 6:42 AM CDT) Patholo gist Method Time Signature WBC 4.8 4.0 - [facility] 11.0 [place] 10e9/L [place] LABS RBC Count 2.56 (L) 4.4 - 5.9 [facility] 10e12/L [facility] Hemoglobin 7.8 (L) 13.3 - [facility] 17.7 g/dL [facility] Hematocrit 23.5 (L) 40.0 - [facility] 53.0 % [facility] MCV 92 78 - 100 [facility] fl [facility] MCH 30.5 26.5 - [facility] 33.0 pg [facility] MCHC 33.2 31.5 - [facility] 36.5 g/dL [facility] RDW 14.5 10.0 - [facility] 15.0 % [facility] Platelet Count 70 (L) 150 - 450 [facility] 10e9/L [facility] Diff Method Automated [facility] Method [facility] % Neutrophils 86.3 % [facility] % Lymphocytes 3.1 % [facility] % Monocytes 9.4 % [facility] % Eosinophils 1.0 % [facility] % Basophils 0.0 % [facility] % Immature 0.2 % [facility] Granulocytes [facility] Absolute 4.1 1.6 - 8.3 [facility] Neutrophil 10e9/L [facility] Absolute 0.2 (L) 0.8 - 5.3 [facility] Lymphocytes 10e9/L [facility] Absolute 0.5 0.0 - 1.3 [facility] Monocytes 10e9/L [facility] Absolute 0.1 0.0 - 0.7 [facility] Eosinophils 10e9/L [facility] Absolute 0.0 0.0 - 0.2 [facility] Basophils 10e9/L [facility] Abs Immature 0.0 0 - 0.4 [facility] Granulocytes 10e9/L [facility] Specimen Anatomical Collection Method Collection Time Receive d Time (Source) Location / / Volume Laterality Blood specimen 02/08/2014 6:42 AM 014 6:43 (specimen) CDT AM CDT Omaira Chavez PA-C LAB - BLOOD ORDERABLES Performing Organization Address City/State/ZIP Code Phon e Number [facility] [address] [place], [place] [phone] [place] [address] LABS (ABNORMAL) Glucose by meter (02/07/2014 10:18 PM CDT) P athologist Signature Glucose 233 (H) 60 - 99 POINT OF CARE mg/dL TEST, GLUCOSE Specimen Anatomical Collection Method Collection Time Receive d Time (Source) Location / / Volume Laterality 02/07/2014 10:18 02/07/2014 PM CDT 10:20 PM CDT Migel Merchant MD LAB - BEAKER POCT Performing Organization Address [facility] Phon e Number FV POINT OF CARE [...] LAB - BEAJ POCT Performing Organization Address [facility] Phon e Number FV POINT OF CARE [...] LAB - BEAKER POCT Performing Organization Address [facility] Phon e Number FV POINT OF CARE [...] LAB - BEAJ POCT Performing Organization Address [facility] Phon e Number FV POINT OF CARE [...] - ROBERT POCT Performing Organization Address City/[facility]/ZIP Code Phon e Number FV POINT OF CARE TEST, GLUCOSE POINT OF CARE TEST, GLUCOSE (ABNORMAL) INR (02/07/2014 4:23 AM CDT) athologist Signature INR 1.25 (H) 0.86 - 1.14 [facility] LABS Specimen Anatomical Collection Method Collection Time Receive d Time (Source) Location / / Volume Laterality Blood specimen 02/07/2014 4:23 AM 014 4:24 (specimen) CDT AM CDT Omaira Chavez PA-C LAB - BLOOD ORDERABLES Performing Organization Address City/[facility]/ZIP Code Phon e Number [phone] [place] [address] LABS (ABNORMAL) Basic metabolic panel (02/07/2014 4:23 AM CDT) [facility] Method Time Signature Sodium 143 133 - 144 [facility] mmol/L [facility] Potassium 4.1 3.4 - 5.3 [facility] mmol/L [facility] Chloride 109 94 - 109 [facility] mmol/L [facility] Carbon Dioxide 24 20 - 32 [facility] mmol/L [facility] Anion Gap 10 6 - 17 [facility] mmol/L [facility] Glucose 185 (H) 60 - 99 [facility] mg/dL [facility] Urea Nitrogen 77 (H) 7 - 30 [facility] mg/dL [facility] Creatinine 3.02 (H) 0.66 - [facility] 1.25 mg/dL [facility] [place] [facility] GFR Estimate 21 (L) >60 [facility] mL/min/1.7 [place] m2 [facility] LABS GFR Estimate If 26 (L) >60 [facility] Black mL/min/1.7 [place] m2 [facility] LABS Calcium 9.3 8.5 - 10.4 [facility] mg/dL [facility] Specimen Anatomical Collection Method Collection Time Receive d Time (Source) Location / / Volume Laterality Blood specimen 02/07/2014 4:23 AM 014 4:24 (specimen) CDT AM CDT Omaira Chavez PA-C LAB - BLOOD ORDERABLES Performing Organization Address City/State/ZIP Code Phon e Number [facility] [address] LABS Phosphorus (02/07/2014 4:23 AM CDT) P athologist Signature Phosphorus 3.5 2.5 - 4.5 [facility] mg/dL [place] LABS Specimen Anatomical Collection Method Collection Time Receive d Time (Source) Location / / Volume Laterality Blood specimen 02/07/2014 4:23 AM 014 4:24 (specimen) CDT AM CDT Omaira Chavez PA-C LAB - BLOOD ORDERABLES Performing Organization Address City/State/ZIP Code Phon e Number [facility] [address] LABS Magnesium (02/07/2014 4:23 AM CDT) P athologist Signature Magnesium 2.1 1.6 - 2.3 [facility] mg/dL [place] LABS Specimen Anatomical Collection Method Collection Time Receive d Time (Source) Location / / Volume Laterality Blood specimen 02/07/2014 4:23 AM 014 4:24 (specimen) CDT AM CDT Omaira Chavez PA-C LAB - BLOOD ORDERABLES Performing Organization Address City/State/ZIP Code Phon e Number [facility] [address] [place], [place] [phone] [place] [address] LABS (ABNORMAL) CBC with platelets differential (02/07/2014 4:23 AM CDT) [facility] gist Method Time Signature WBC 2.7 (L) 4.0 - [facility] 11.0 [place] 10e9/L [place] LABS RBC Count 2.80 (L) 4.4 - 5.9 [facility] 10e12/L [facility] Hemoglobin 8.5 (L) 13.3 - [facility] 17.7 g/dL [facility] Hematocrit 25.8 (L) 40.0 - [facility] 53.0 % [facility] MCV 92 78 - 100 [facility] fl [facility] MCH 30.4 26.5 - [facility] 33.0 pg [facility] MCHC 32.9 31.5 - [facility] 36.5 g/dL [facility] RDW 14.5 10.0 - [facility] 15.0 % [facility] Platelet Count 77 (L) 150 - 450 [facility] 10e9/L [facility] Diff Method Automated [facility] Method [facility] % Neutrophils 87.5 % [facility] LABS % Lymphocytes 3.8 % [facility]S % Monocytes 8.7 % [facility] LABS % Eosinophils 0.0 % [facility] % Basophils 0.0 % [facility] LAB[facility] % Immature 0.0 % [facility] Granulocytes [facility] Absolute 2.3 1.6 - 8.3 [facility] Neutrophil 10e9/L [facility] Absolute 0.1 (L) 0.8 - 5.3 [facility] Lymphocytes 10e9/L [facility] Absolute 0.2 0.0 - 1.3 [facility] Monocytes 10e9/L [facility] Absolute 0.0 0.0 - 0.7 [facility] Eosinophils 10e9/L [facility] Absolute 0.0 0.0 - 0.2 [facility] Basophils 10e9/L [facility] Abs Immature 0.0 0 - 0.4 [facility] Granulocytes 10e9/L [facility] Specimen Anatomical Collection Method Collection Time Receive d Time (Source) Location / / Volume Laterality Blood specimen 02/07/2014 4:23 AM 014 4:24 (specimen) CDT AM CDT Omaira Chavez PA-C LAB - BLOOD ORDERABLES Performing Organization Address City/State/ZIP Code Phon e Number [facility] 500 [place], [place] [phone] [place] [address] LABS (ABNORMAL) Hemoglobin A1c (02/07/2014 4:23 AM CDT) Analysis Performed At Patho logist Time Signature Hemoglobin A1C 6.1 (H) 4.3 - 6.0 [facility] LABS Specimen Anatomical Collection Method Collection Time Receive d Time (Source) Location / / Volume Laterality Blood specimen 02/07/2014 4:23 AM 014 4:24 (specimen) CDT AM CDT Omaira Chavez PA-C LAB - BLOOD ORDERABLES Performing Organization Address City/State/ZIP Code Phon e Number [facility] [address] [place] [address] [facility] LABS (ABNORMAL) Glucose by meter (02/06/2014 10:06 PM CDT) P athologist Signature Glucose 247 (H) 60 - 99 POINT OF CARE mg/dL TEST, GLUCOSE Specimen Anatomical Collection Method Collection Time Receive d Time (Source) Location / / Volume Laterality 02/06/2014 10:06 02/06/2014 PM CDT 10:10 PM CDT Migel LARES - BEAKER POCT Performing Organization Address City/[facility]/ZIP Code Phon e Number FV [...] 9:11 PM 4 9:15 CDT PM CDT Migle JONES POCT Performing Organization Address City/[facility]/ZIP Code Phon e Number FV [...] Signature Hemoglobin 8.8 (L) 13.3 - 17.7 [facility] g/dL [place] LABS Specimen Anatomical Collection Method Collection Time Receive d Time (Source) Location / / Volume Laterality Blood specimen 02/06/2014 4:59 PM 014 5:12 (specimen) CDT PM CDT Omaira Chavez PA-C LAB - BLOOD ORDERABLES Performing Organization Address City/[facility]/ZIP Code Phon e Number [facility] [address] LABS (ABNORMAL) Glucose by meter (02/06/2014 12:01 PM CDT) P athologist Signature Glucose 181 (H) 60 - 99 POINT OF CARE mg/dL TEST, GLUCOSE Specimen Anatomical Collection Method Collection Time Receive d Time (Source) Location / / Volume Laterality 02/06/2014 12:01 02/06/2014 PM CDT 12:05 PM CDT Migel LARES - ROBERT POCT Performing Organization Address City/[facility]/ZIP Code Phon e Number FV POINT OF CARE TEST, GLUCOSE POINT OF CARE TEST, GLUCOSE (ABNORMAL) Partial thromboplastin time (02/06/2014 5:57 AM CDT) P athologist Signature PTT 154 (HH) 22 - 37 sec [facility] LABS Comment: Critical Value called to and read back Whitney Poon RN AT 0642. PW Specimen Anatomical Collection Method Collection Time Receive d Time (Source) Location / / Volume Laterality 02/06/2014 5:57 AM 4 6:03 CDT AM CDT Adeline Diaz MD LAB - BLOOD ORDERABLES Performing Organization Address City/[facility]/ZIP Code Phon e Number [facility] [address] [place], [place] [phone] [place] [address] LABS Heparin Xa (10a) Level (02/06/2014 5:57 AM CDT) P athologist Signature Heparin 10A 0.92 IU/mL [facility] LABS Comment: Therapeutic Range: ?? UFH: [...] - BLOOD ORDERABLES Performing Organization Address City/[facility]/ZIP Code Phon e Number [address] LABS (ABNORMAL) INR (02/06/2014 5:57 AM CDT) P athologist Signature INR 1.32 (H) 0.86 - 1.14 [facility] LABS Specimen Anatomical Collection Method Collection Time Receive d Time (Source) Location / / Volume Laterality Blood specimen 02/06/2014 5:57 AM 014 6:03 (specimen) CDT AM CDT Omaira Chavez PA-C LAB - BLOOD ORDERABLES Performing Organization Address City/[facility]/ZIP Code Phon e Number [address] LABS (ABNORMAL) Basic metabolic panel (02/06/2014 5:57 AM CDT) Patholo gist Method Time Signature Sodium 142 133 - 144 [facility] mmol/L [facility] Potassium 4.7 3.4 - 5.3 [facility] mmol/L [facility] Chloride 106 94 - 109 [facility] mmol/L [facility] Carbon Dioxide 28 20 - 32 [facility] mmol/L [facility] Anion Gap 8 6 - 17 [facility] mmol/L [facility] Glucose 196 (H) 60 - 99 [facility] mg/dL [facility] Urea Nitrogen 71 (H) 7 - 30 [facility] mg/dL [facility] Creatinine 3.96 (H) 0.66 - [facility] 1.25 mg/dL [facility] GFR Estimate 15 (L) >60 [facility] mL/min/1.7 [place] m2 [place] LABS GFR Estimate If 19 (L) >60 [facility] Black mL/min/1.[address] LABS Calcium 9.4 8.5 - 10.4 [facility] mg/dL [facility] Specimen Anatomical Collection Method Collection Time Receive d Time (Source) Location / / Volume Laterality Blood specimen 02/06/2014 5:57 AM 014 6:03 (specimen) CDT AM CDT Omaira Chavez PA-C LAB - BLOOD ORDERABLES Performing Organization Address City/[facility]/ZIP Code Phon e Number [address] LABS Phosphorus (02/06/2014 5:57 AM CDT) P athologist Signature Phosphorus 4.5 2.5 - 4.5 [facility] mg/dL [place] LABS Specimen Anatomical Collection Method Collection Time Receive d Time (Source) Location / / Volume Laterality Blood specimen 02/06/2014 5:57 AM 014 6:03 (specimen) CDT AM CDT Omaira Chavez PA-C LAB - BLOOD ORDERABLES Performing Organization Address City/State/ZIP Code Phon e Number [facility] [address] LABS Magnesium (02/06/2014 5:57 AM CDT) P athologist Signature Magnesium 1.9 1.6 - 2.3 [facility] mg/dL [place] [facility] Specimen Anatomical Collection Method Collection Time Receive d Time (Source) Location / / Volume Laterality Blood specimen 02/06/2014 5:57 AM 014 6:03 (specimen) CDT AM CDT Omaira Chavez PA-C LAB - BLOOD ORDERABLES Performing Organization Address City/State/ZIP Code Phon e Number [address] [address] [place] [facility] LABS (ABNORMAL) CBC with platelets differential (02/06/2014 5:57 AM CDT) [facility] gist Method Time Signature WBC 5.1 4.0 - [facility] 11.0 [facility] 10e9/L [facility] RBC Count 3.13 (L) 4.4 - 5.9 [facility] 10e12/L [facility] Hemoglobin 9.6 (L) 13.3 - [facility] 17.7 g/dL [facility] Hematocrit 29.0 (L) 40.0 - [facility] 53.0 % [facility] MCV 93 78 - 100 [facility] fl [facility] MCH 30.7 26.5 - [facility] 33.0 pg [facility] MCHC 33.1 31.5 - [facility] 36.5 g/dL [facility] RDW 14.5 10.0 - [facility] 15.0 % [facility] Platelet Count 85 (L) 150 - 450 [facility] 10e9/L [facility] Diff Method Automated [facility] Method [facility] % Neutrophils 86.0 % [facility] % Lymphocytes 5.1 % [facility] % Monocytes 8.7 % [facility] % Eosinophils 0.0 % [facility] % Basophils 0.0 % [facility] LAB[facility] % Immature 0.2 % [facility] Granulocytes [facility] Absolute 4.4 1.6 - 8.3 [facility] Neutrophil 10e9/L [facility] Absolute 0.3 (L) 0.8 - 5.3 [facility] Lymphocytes 10e9/L [facility] Absolute 0.4 0.0 - 1.3 [facility] Monocytes 10e9/L [facility] Absolute 0.0 0.0 - 0.7 [facility] Eosinophils 10e9/L [facility] Absolute 0.0 0.0 - 0.2 [facility] Basophils 10e9/L [facility] Abs Immature 0.0 0 - 0.4 [facility] Granulocytes 10e9/L [facility] Specimen Anatomical Collection Method Collection Time Receive d Time (Source) Location / / Volume Laterality Blood specimen 02/06/2014 5:57 AM 014 6:03 (specimen) CDT AM CDT Omaira Chavez PA-C LAB - BLOOD ORDERABLES Performing Organization Address [facility]/ZIP Code Phon e Number [facility] [address] LABS (ABNORMAL) Lipid panel reflex to direct LDL (02/06/2014 5:57 AM CDT) P athologist Signature Cholesterol 126 <200 mg/dL [facility] Comment: LDL Cholesterol is the primary guide to therapy. The NCEP recommends further evaluation of: patients with cholesterol greater than 200 mg/dL if additional risk facto rs are present, cholesterol greater than 240 mg/dL, triglycerides greater than 1 50 mg/dL, or HDL less than 40 mg/dL. Triglycerides 100 0 - 150 mg/dL [facility] LABS HDL Cholesterol 35 (L) >40 mg/dL [facility] LABS LDL Cholesterol Calculated 71 0 - 129 mg/dL [facility] Comment: LDL Cholesterol is the primary guide to therapy: LDL-cholesterol goal in high risk patients is <100 mg/dL and in very high risk patients is <70 mg/dL. VLDL-Cholesterol 20 0 - 30 mg/dL [facility] Cholesterol/HDL Ratio 3.6 0.0 - 5.0 [facility] Specimen Anatomical Collection Method Collection Time Receive d Time (Source) Location / / Volume Laterality Blood specimen 02/06/2014 5:57 AM 2 014 6:03 (specimen) CDT AM CDT Omaira Chavez PA-C LAB - BLOOD ORDERABLES Performing Organization Address City/[facility]/ZIP Code Phon e Number [facility] [address] [place] [address] [facility] LABS Tacrolimus level (02/06/2014 5:57 AM CDT) Patholo gist Method Time Signature Tacrolimus S Negative [facility] Last Dose [facility] Tacrolimus 12.7 5.0 - [facility] Level 15.0 ug/L MEDICAL [...] Phon e Number [facility] [address] [place] [address] [facility] LABS (ABNORMAL) Glucose by meter (02/06/2014 3:21 [...] athologist Signature Hemoglobin 10.2 (L) 13.3 - [facility] 17.7 g/dL [place] LABS Specimen Anatomical Collection Method Collection Time Receive d Time (Source) Location / / Volume Laterality Blood specimen 02/06/2014 1:02 AM 014 1:11 (specimen) CDT AM CDT Deysi Alicea MD LAB - BLOOD ORDERABLES Performing Organization Address City/State/ZIP Code Phon e Number [phone] [place] [address] LABS (ABNORMAL) Glucose by meter (02/05/2014 10:23 [...] CDT) athologist Signature Heparin 10A 0.64 IU/mL [facility] LABS Comment: Therapeutic Range: ?? UFH: [...] Organization Address City/State/ZIP Code Phon e Number [address] [address] [facility] LABS (ABNORMAL) Glucose by meter (02/05/2014 6:04 PM CDT) P athologist Signature Glucose 232 (H) 60 - 99 POINT OF CARE mg/dL TEST, GLUCOSE Specimen Anatomical Collection Method Collection Time Receive d Time (Source) Location / / Volume Laterality 02/05/2014 6:04 PM 4 6:10 CDT PM CDT Migel Merchant MD LAB - BEAKER POCT Performing Organization Address [facility] Phon e Number FV POINT OF CARE [...] - BEAJ POCT Performing Organization Address City/[facility] Phon e Number FV POINT OF CARE [...] LARES - BEAJ POCT Performing Organization Address [facility] Phon e Number FV POINT OF CARE [...] Signature INR 1.24 (H) 0.86 - 1.14 [facility] LABS Specimen Anatomical Collection Method Collection Time Receive d Time (Source) Location / / Volume Laterality Blood specimen 02/05/2014 12:04 4 (specimen) PM CDT 12:10 PM CDT Teresa Wright [facility] LAB - BLOOD ORDERABLES Performing Organization Address City/State/ZIP Code Phon e Number [phone] [place] [address] LABS (ABNORMAL) CBC with platelets (02/05/2014 12:04 PM CDT) [facility] gist Method Time Signature WBC 7.4 4.0 - 11.0 [facility] 10e9/L [facility] RBC Count 3.31 (L) 4.4 - 5.9 [facility] 10e12/L [facility] Hemoglobin 10.3 (L) 13.3 - [facility] 17.7 g/dL [facility] Hematocrit 31.0 (L) 40.0 - [facility] 53.0 % [facility] MCV 94 78 - 100 [facility] fl [facility] MCH 31.1 26.5 - [facility] 33.0 pg [facility] MCHC 33.2 31.5 - [facility] 36.5 g/dL [facility] RDW 14.7 10.0 - [facility] 15.0 % [facility] Platelet Count 91 (L) 150 - 450 [facility] 10e9/L [facility] Specimen Anatomical Collection Method Collection Time Receive d Time (Source) Location / / Volume Laterality Blood specimen 02/05/2014 12:04 4 (specimen) PM CDT 12:10 PM CDT Omaira Chavez PA-C LAB - BLOOD ORDERABLES Performing Organization Address City/State/ZIP Code Phon e Number [facility] [address] [place] [address] [facility] LABS (ABNORMAL) Glucose by meter (02/05/2014 11:25 AM CDT) P athologist Signature Glucose 190 (H) 60 - 99 POINT OF CARE mg/dL TEST, GLUCOSE Specimen Anatomical Collection Method Collection Time Receive d Time (Source) Location / / Volume Laterality 02/05/2014 11:25 02/05/2014 AM CDT 11:30 AM CDT Migel Merchant MD LAB - BEAKER POCT Performing Organization Address City/[facility]/ZIP Code Phon e Number FV [...] - BEAJ POCT Performing Organization Address City/[facility]/ZIP Code Phon e Number FV [...] Basic metabolic panel (02/05/2014 7:02 AM CDT) [facility] gist Method Time Signature Sodium 143 133 - 144 [facility] mmol/L [facility] Potassium 4.3 3.4 - 5.3 [facility] mmol/L [facility] Chloride 107 94 - 109 [facility] mmol/L [facility] Carbon Dioxide 25 20 - 32 [facility] mmol/L [facility] [place] [facility] Anion Gap 10 6 - 17 [...] Organization Address City/State/ZIP Code Phon e Number [phone] [place] [address] LABS (ABNORMAL) Phosphorus (02/05/2014 7:02 AM CDT) athologist Signature Phosphorus 5.7 (H) 2.5 - 4.5 [facility] mg/dL [facility] LABS Specimen Anatomical Collection Method Collection Time Receive d Time (Source) Location / / Volume Laterality Blood specimen 02/05/2014 7:02 AM 014 7:05 (specimen) CDT AM CDT Omaira Chavez PA-C LAB - BLOOD ORDERABLES Performing Organization Address City/[facility]/ZIP Code Phon e Number [facility] [address] [place], [place] [phone] [place] [address] LABS Magnesium (02/05/2014 7:02 AM CDT) P athologist Signature Magnesium 2.0 1.6 - 2.3 [facility] mg/dL [place] LABS Specimen Anatomical Collection Method Collection Time Receive d Time (Source) Location / / Volume Laterality Blood specimen 02/05/2014 7:02 AM 014 7:05 (specimen) CDT AM CDT Omaira Chavez PA-C LAB - BLOOD ORDERABLES Performing Organization Address City/[facility]/ZIP Code Phon e Number [facility] [address] [place] [address] [facility] LABS (ABNORMAL) CBC with platelets differential (02/05/2014 7:02 AM CDT) Patholo gist Method Time Signature WBC 8.9 4.0 - [facility] 11.0 [facility] 10e9/L [place] [facility] RBC Count 3.20 (L) 4.4 - 5.9 [facility] 10e12/L [facility] Hemoglobin 9.7 (L) 13.3 - [facility] 17.7 g/dL [facility] Hematocrit 30.0 (L) 40.0 - [facility] 53.0 % [facility] MCV 94 78 - 100 [facility] fl [facility] MCH 30.3 26.5 - [facility] 33.0 pg [facility] MCHC 32.3 31.5 - [facility] 36.5 g/dL [facility] RDW 14.6 10.0 - [facility] 15.0 % [facility] Platelet Count 96 (L) 150 - 450 [facility] 10e9/L [facility] Diff Method Automated [facility] Method [facility] % Neutrophils 90.2 % [facility] % Lymphocytes 4.4 % [facility] % Monocytes 5.2 % [facility] [facility] % Eosinophils 0.0 % [facility] % Basophils 0.0 % [facility] % Immature 0.2 % [facility] Granulocytes [facility] [place] [facility] Absolute 8.1 1.6 - 8.3 [facility] Neutrophil 10e9/L [facility] Absolute 0.4 (L) 0.8 - 5.3 [facility] Lymphocytes 10e9/L [facility] Absolute 0.5 0.0 - 1.3 [facility] Monocytes 10e9/L [facility] Absolute 0.0 0.0 - 0.7 [facility] Eosinophils 10e9/L [facility] Absolute 0.0 0.0 - 0.2 [facility] Basophils 10e9/L [facility] Abs Immature 0.0 0 - 0.4 [facility] Granulocytes 10e9/L [facility] Specimen Anatomical Collection Method Collection Time Receive d Time (Source) Location / / Volume Laterality Blood specimen 02/05/2014 7:02 AM 014 7:05 (specimen) CDT AM CDT Omaira Chavez PA-C LAB - BLOOD ORDERABLES Performing Organization Address City/[facility] Phon e Number [address] LABS (ABNORMAL) Parathormone intact (02/05/2014 7:02 AM CDT) Patholo gist Method Time Signature Parathyroid 362 (H) 12 - 72 [facility] Hormone Intact pg/mL [facility] Specimen Anatomical Collection Method Collection Time Receive d Time (Source) Location / / Volume Laterality Blood specimen 02/05/2014 7:02 AM 014 7:05 (specimen) CDT AM CDT Sina Robison MD LAB - BLOOD ORDERABLES Performing Organization Address City/[facility]/ZIP Code Phon e Number [address] LABS (ABNORMAL) Ferritin (02/05/2014 7:02 AM CDT) P athologist Signature Ferritin 932 (H) 20 - 300 [facility] ng/mL [place] [facility] Specimen Anatomical Collection Method Collection Time Receive d Time (Source) Location / / Volume Laterality Blood specimen 02/05/2014 7:02 AM 014 7:05 (specimen) CDT AM CDT Sina Robison MD LAB - BLOOD ORDERABLES Performing Organization Address City/[facility]/ZIP Code Phon e Number [facility] [address] [place] [address] [facility] LABS (ABNORMAL) Iron and iron binding capacity (02/05/2014 7:02 AM CDT) Analysis Performed At Patho logist Time Signature Iron 119 35 - 180 [facility] ug/dL [facility] Iron Binding 207 (L) 240 - 430 [facility] Cap ug/dL [facility] Iron Saturation 58 (H) 15 - 46 % [facility] Index [facility] Specimen Anatomical Collection Method Collection Time Receive d Time (Source) Location / / Volume Laterality Blood specimen 02/05/2014 7:02 AM 014 7:05 (specimen) CDT AM CDT Sina Robison MD LAB - BLOOD ORDERABLES Performing Organization Address City/[facility]/ZIP Code Phon e Number [facility] [address] [place] [address] [facility] LABS (ABNORMAL) Glucose by meter (02/05/2014 6:59 AM CDT) athologist Signature Glucose 123 (H) 60 - 99 POINT OF CARE mg/dL TEST, GLUCOSE Specimen Anatomical Collection Method Collection Time Receive d Time (Source) Location / / Volume Laterality 02/05/2014 6:59 AM 4 7:05 CDT AM CDT Migel LARES - BEAJ POCT Performing Organization Address City/[facility]/ZIP Code Phon e Number FV [...] - BEAJ POCT Performing Organization Address City/[facility]/ZIP Code Phon e Number FV [...] LAB - BEAKER POCT Performing Organization Address [facility] Phon e Number FV POINT OF CARE [...] LAB - BEAJ POCT Performing Organization Address [facility] Phon e Number FV POINT OF CARE [...] LAB - BEAJ POCT Performing Organization Address [facility] Phon e Number FV POINT OF CARE [...] LAB - BEAJ POCT Performing Organization Address [facility] Phon e Number FV POINT OF CARE [...] LAB - ROBERT POCT Performing Organization Address [facility] Phon e Number FV POINT OF CARE [...] LARES - ROBERT POCT Performing Organization Address [facility] Phon e Number FV POINT OF CARE TEST, GLUCOSE POINT OF CARE TEST, GLUCOSE EKG 12-lead, complete (02/04/2014 11:09 PM CDT) [facility] gist Method Time Signature Interpretation ECG Click View RADIOLOGY Image link RESULTS to view waveform and result Specimen (Source) Anatomical Collection Method Collection Time Re ceived Time Location / / Volume Laterality 02/04/2014 11:09 PM CDT Chemo Carr MD ECG ORDERABLES Performing Organization Address [facility] Phon e Number RADIOLOGY RESULTS (ABNORMAL) Glucose by meter (02/04/2014 10:56 PM CDT) P athologist Signature Glucose 161 (H) 60 - 99 POINT OF CARE mg/dL TEST, GLUCOSE Specimen Anatomical Collection Method Collection Time Receive d Time (Source) Location / / Volume Laterality 02/04/2014 10:56 02/04/2014 PM CDT 11:00 PM CDT Migel LARES - ROBERT POCT Performing Organization Address [facility] Phon e Number FV POINT OF CARE [...] - BEAKER POCT Performing Organization Address City/[facility]/ZIP Code Phon e Number FV [...] - BEAJ POCT Performing Organization Address City/[facility]/ZIP Code Phon e Number FV [...] - BEAKER POCT Performing Organization Address City/[facility]/ZIP Code Phon e Number FV POINT OF CARE TEST, GLUCOSE POINT OF CARE TEST, GLUCOSE Troponin I (02/04/2014 7:10 PM CDT) P athologist Signature Troponin I 0.016 0.000 - [facility] 0.034 ug/L [place] [facility] Specimen Anatomical Collection Method Collection Time Receive d Time (Source) Location / / Volume Laterality Blood specimen 02/04/2014 7:10 PM 014 7:23 (specimen) CDT PM CDT Adeline Diaz MD LAB - BLOOD ORDERABLES Performing Organization Address City/State/ZIP Code Phon e Number [address] [address] [facility] LABS (ABNORMAL) Glucose by meter (02/04/2014 7:01 PM CDT) P athologist Signature Glucose 157 (H) 60 - 99 POINT OF CARE mg/dL TEST, GLUCOSE Specimen Anatomical Collection Method Collection Time Receive d Time (Source) Location / / Volume Laterality 02/04/2014 7:01 PM 4 7:05 CDT PM CDT Migel Merchant MD LAB - BEAKER POCT Performing Organization Address City/[facility]/ZIP Code Phon e Number FV [...] - BEAKER POCT Performing Organization Address City/[facility]/ZIP Code Phon e Number FV [...] - BEAJ POCT Performing Organization Address City/[facility]/ZIP Code Phon e Number FV [...] athologist Signature Troponin I 0.025 0.000 - [facility] 0.034 ug/L [place] [facility] Specimen Anatomical Collection Method Collection Time Receive d Time (Source) Location / / Volume Laterality Blood specimen 02/04/2014 12:42 4 (specimen) PM CDT 12:45 PM CDT Adeline Diaz MD LAB - BLOOD ORDERABLES Performing Organization Address City/[facility]/ZIP Code Phon e Number [id number] [place] [address] LABS (ABNORMAL) Glucose by meter (02/04/2014 12:27 PM CDT) P athologist Signature Glucose 140 (H) 60 - 99 POINT OF CARE mg/dL TEST, GLUCOSE Specimen Anatomical Collection Method Collection Time Receive d Time (Source) Location / / Volume Laterality 02/04/2014 12:27 02/04/2014 PM CDT 12:30 PM CDT Migel Merchant MD LAB - BEAKER POCT Performing Organization Address City/[facility]/ZIP Code Phon e Number FV [...] LARES - ROBERT POCT Performing Organization Address [facility] Phon e Number FV POINT OF CARE [...] Chavez PA-C ECG ORDERABLES Performing Organization Address [facility] Phon e Number RADIOLOGY RESULTS (ABNORMAL) Glucose by meter (02/04/2014 9:02 AM CDT) P athologist Signature Glucose 203 (H) 60 - 99 POINT OF CARE mg/dL TEST, GLUCOSE Specimen Anatomical Collection Method Collection Time Receive d Time (Source) Location / / Volume Laterality 02/04/2014 9:02 AM 4 9:05 CDT AM CDT Migel LARES - ROBERT POCT Performing Organization Address [facility] Phon e Number FV POINT OF CARE [...] LARES - ROBERT POCT Performing Organization Address [facility] Phon e Number FV POINT OF CARE [...] - BEAKER POCT Performing Organization Address City/[facility]/ZIP [facility] Phon e Number FV POINT OF CARE TEST, GLUCOSE POINT OF CARE TEST, GLUCOSE EKG 12-lead, complete (02/04/2014 7:03 AM CDT) [facility] gist Method Time Signature Interpretation ECG Click View RADIOLOGY Image link RESULTS to view waveform and result Specimen (Source) Anatomical Collection Method Collection Time Re ceived Time Location / / Volume Laterality 02/04/2014 7:03 AM CDT Caitlin Owens MD ECG ORDERABLES Performing Organization Address [facility] Code Phon e Number RADIOLOGY RESULTS (ABNORMAL) Glucose by meter (02/04/2014 6:09 AM CDT) athologist Signature Glucose 160 (H) 60 - 99 POINT OF CARE mg/dL TEST, GLUCOSE Specimen Anatomical Collection Method Collection Time Receive d Time (Source) Location / / Volume Laterality 02/04/2014 6:09 AM 4 6:15 CDT AM CDT Migel Merchant MD LAB - BEAKER POCT Performing Organization Address [facility] Phon e Number FV POINT OF CARE TEST, GLUCOSE POINT OF CARE TEST, GLUCOSE Troponin I (02/04/2014 5:49 AM CDT) athologist Signature Troponin I ES <0.012 0.000 - [facility] 0.034 ug/L [facility] LABS Specimen Anatomical Collection Method Collection Time Receive d Time (Source) Location / / Volume Laterality 02/04/2014 5:49 AM 4 5:51 CDT AM CDT Caitlin Owens MD LAB - BLOOD ORDERABLES Performing Organization Address City/[facility]/ZIP Code Phon e Number [phone] [place] [address] LABS (ABNORMAL) Basic metabolic panel (02/04/2014 5:49 AM CDT) Patholo gist Method Time Signature Sodium 142 133 - 144 [facility] mmol/L [facility] Potassium 4.9 3.4 - 5.3 [facility] mmol/L [facility] Chloride 107 94 - 109 [facility] mmol/L [facility] Carbon Dioxide 23 20 - 32 [facility] mmol/L [facility] Anion Gap 12 6 - 17 [facility] mmol/L [facility] Glucose 151 (H) 60 - 99 [facility] mg/dL [facility] Urea Nitrogen 57 (H) 7 - 30 [facility] mg/dL [facility] Creatinine 5.94 (H) 0.66 - [facility] 1.25 mg/dL [facility] GFR Estimate 10 (L) >60 [facility] mL/min/1.7 [place] m2 [place] [facility] GFR Estimate If 12 (L) >60 [facility] Black mL/min/1.[address] LABS Calcium 9.4 8.5 - 10.4 [facility] mg/dL [facility] Specimen Anatomical Collection Method Collection Time Receive d Time (Source) Location / / Volume Laterality Blood specimen 02/04/2014 5:49 AM 014 5:51 (specimen) CDT AM CDT Omaira Chavez PA-C LAB - BLOOD ORDERABLES Performing Organization Address City/[facility]/ZIP Code Phon e Number [address] LABS (ABNORMAL) Phosphorus (02/04/2014 5:49 AM CDT) P athologist Signature Phosphorus 6.3 (H) 2.5 - 4.5 [facility] mg/dL [place] [facility] Specimen Anatomical Collection Method Collection Time Receive d Time (Source) Location / / Volume Laterality Blood specimen 02/04/2014 5:49 AM 014 5:51 (specimen) CDT AM CDT Omaira Chavez PA-C LAB - BLOOD ORDERABLES Performing Organization Address City/[facility]/ZIP Code Phon e Number [address] LABS Magnesium (02/04/2014 5:49 AM CDT) [...] Phon e Number [facility] [address] [place] [address] [facility] LABS (ABNORMAL) CBC with platelets differential (02/04/2014 5:49 AM CDT) [facility] gist Method Time Signature WBC 13.8 (H) 4.0 - [facility] 11.0 [facility] 10e9/L [place] [facility] RBC Count 3.10 (L) 4.4 - 5.9 [facility] 10e12/L [facility] Hemoglobin 9.5 (L) 13.3 - [facility] 17.7 g/dL [facility] Hematocrit 28.7 (L) 40.0 - [facility] 53.0 % [facility] MCV 93 78 - 100 [facility] fl [facility] MCH 30.6 26.5 - [facility] 33.0 pg [facility] MCHC 33.1 31.5 - [facility] 36.5 g/dL [facility] RDW 14.6 10.0 - [facility] 15.0 % [facility] Platelet Count 91 (L) 150 - 450 [facility] 10e9/L [facility] Diff Method Automated [facility] Method [facility] % Neutrophils 95.8 % [facility] % Lymphocytes 1.2 % [facility] % Monocytes 2.8 % [facility] % Eosinophils 0.0 % [facility] % Basophils 0.0 % [facility] % Immature 0.2 % [facility] Granulocytes [facility] Absolute 13.2 (H) 1.6 - 8.3 [facility] Neutrophil 10e9/L [facility] Absolute 0.2 (L) 0.8 - 5.3 [facility] Lymphocytes 10e9/L [facility] Absolute 0.4 0.0 - 1.3 [facility] Monocytes 10e9/L [facility] Absolute 0.0 0.0 - 0.7 [facility] Eosinophils 10e9/L [facility] Absolute 0.0 0.0 - 0.2 [facility] Basophils 10e9/L [facility] Abs Immature 0.0 0 - 0.4 [facility] Granulocytes 10e9/L [facility] Specimen Anatomical Collection Method Collection Time Receive d Time (Source) Location / / Volume Laterality Blood specimen 02/04/2014 5:49 AM 014 5:51 (specimen) CDT AM CDT Omaira Chavez PA-C LAB - BLOOD ORDERABLES Performing Organization Address City/State/ZIP Code Phon e Number [address] [address] [facility] LABS (ABNORMAL) Glucose by meter (02/04/2014 5:33 AM CDT) P athologist Signature Glucose 155 (H) 60 - 99 POINT OF CARE mg/dL TEST, GLUCOSE Specimen Anatomical Collection Method Collection Time Receive d Time (Source) Location / / Volume Laterality 02/04/2014 5:33 AM 4 5:35 CDT AM CDT Migel LARES - ROBERT POCT Performing Organization Address City/[facility]/ZIP Code Phon e Number FV [...] - BEAJ POCT Performing Organization Address City/[facility] Code Phon e Number FV [...] - ROBERT POCT Performing Organization Address City/[facility] Code Phon e Number FV [...] - ROBERT POCT Performing Organization Address City/[facility] Code Phon e Number FV POINT OF CARE TEST, GLUCOSE POINT OF CARE TEST, GLUCOSE Potassium (02/03/2014 10:16 PM CDT) P athologist Signature Potassium 4.8 3.4 - 5.3 [facility] mmol/L [place] [facility] Specimen Anatomical Collection Method Collection Time Receive d Time (Source) Location / / Volume Laterality Blood specimen 02/03/2014 10:16 4 (specimen) PM CDT 10:19 PM CDT Caitlin Owens MD LAB - BLOOD ORDERABLES Performing Organization Address City/State/ZIP Code Phon e Number [address] LABS (ABNORMAL) Hemoglobin (02/03/2014 10:16 PM CDT) athologist Signature Hemoglobin 9.4 (L) 13.3 - 17.7 [facility] g/dL [place] [facility] Specimen Anatomical Collection Method Collection Time Receive d Time (Source) Location / / Volume Laterality Blood specimen 02/03/2014 10:16 4 (specimen) PM CDT 10:19 PM CDT Caitlin Owens MD LAB - BLOOD ORDERABLES Performing Organization Address City/[facility]/ZIP Code Phon e Number [phone] [place] [address] LABS (ABNORMAL) Glucose by meter (02/03/2014 9:55 [...] Migel JONES POCT Performing Organization Address City/[facility]/ZIP Code Phon e Number FV [...] - BEAKER POCT Performing Organization Address City/[facility]/ZIP Code Phon e Number FV [...] LAB - BEAKER POCT Performing Organization Address [facility] Phon e Number FV POINT OF CARE TEST, GLUCOSE POINT OF CARE TEST, GLUCOSE Potassium (02/03/2014 6:52 PM CDT) athologist Signature Potassium 4.7 3.4 - 5.3 [facility] mmol/L [facility]S Specimen Anatomical Collection Method Collection Time Receive d Time (Source) Location / / Volume Laterality Blood specimen 02/03/2014 6:52 PM 014 6:53 (specimen) CDT PM CDT Caitlin Owens MD LAB - BLOOD ORDERABLES Performing Organization Address [facility]/ZIP Code Phon e Number [address] LABS (ABNORMAL) Hemoglobin (02/03/2014 6:52 PM CDT) athologist Signature Hemoglobin 9.6 (L) 13.3 - 17.7 [facility] g/dL [facility] LABS Specimen Anatomical Collection Method Collection Time Receive d Time (Source) Location / / Volume Laterality Blood specimen 02/03/2014 6:52 PM 014 6:53 (specimen) CDT PM CDT Caitlin Owens MD LAB - BLOOD ORDERABLES Performing Organization Address City/[facility] [place] [address] [facility] LABS (ABNORMAL) Glucose by meter (02/03/2014 6:00 [...] - BEAJ POCT Performing Organization Address City/[facility]/ZIP Code Phon e Number FV [...] athologist Signature Potassium 4.7 3.4 - 5.3 [facility] mmol/L [facility] Specimen Anatomical Collection Method Collection Time Receive d Time (Source) Location / / Volume Laterality Blood specimen 02/03/2014 1:41 PM 014 1:43 (specimen) CDT PM CDT Caitlin Owens MD LAB - BLOOD ORDERABLES Performing Organization Address City/[facility]/ZIP Code Phon e Number [address] LABS (ABNORMAL) Hemoglobin (02/03/2014 1:41 PM CDT) athologist Signature Hemoglobin 9.8 (L) 13.3 - 17.7 [facility] g/dL [place] [facility] Specimen Anatomical Collection Method Collection Time Receive d Time (Source) Location / / Volume Laterality Blood specimen 02/03/2014 1:41 PM 014 1:43 (specimen) CDT PM CDT Caitlin Owens MD LAB - BLOOD ORDERABLES Performing Organization Address City/[facility]/ZIP Code Phon e Number [address] LABS (ABNORMAL) Glucose by meter (02/03/2014 [...] - BEAKER POCT Performing Organization Address City/[facility]/ZIP Code Phon e Number FV [...] - BEAKER POCT Performing Organization Address City/[facility] Phon e Number FV POINT OF CARE TEST, GLUCOSE POINT OF CARE TEST, GLUCOSE Potassium (02/03/2014 10:11 AM CDT) athologist Signature Potassium 4.8 3.4 - 5.3 [facility] mmol/L [facility] Specimen Anatomical Collection Method Collection Time Receive d Time (Source) Location / / Volume Laterality Blood specimen 02/03/2014 10:11 4 (specimen) AM CDT 10:23 AM CDT Caitlin Owens MD LAB - BLOOD ORDERABLES Performing Organization Address City/[facility] Code Phon e Number [address] LABS (ABNORMAL) Hemoglobin (02/03/2014 10:11 AM CDT) P athologist Signature Hemoglobin 9.7 (L) 13.3 - 17.7 [facility] g/dL [facility] LABS Specimen Anatomical Collection Method Collection Time Receive d Time (Source) Location / / Volume Laterality Blood specimen 02/03/2014 10:11 4 (specimen) AM CDT 10:23 AM CDT Caitlin Owens MD LAB - BLOOD ORDERABLES Performing Organization Address City/[facility] Phon e Number [address] LABS (ABNORMAL) Glucose by meter (02/03/2014 9:58 AM CDT) P athologist Signature Glucose 168 (H) 60 - 99 POINT OF CARE mg/dL TEST, GLUCOSE Specimen Anatomical Collection Method Collection Time Receive d Time (Source) Location / / Volume Laterality 02/03/2014 9:58 AM 4 CDT 10:00 AM CDT Migel Merchant MD LAB - BEAJ POCT Performing Organization Address City/[facility] Phon e Number FV POINT OF CARE [...] - ROBERT POCT Performing Organization Address City/[facility] Phon e Number FV POINT OF CARE [...] 8:10 CDT AM CDT Migel LARES - [facility] POCT Performing Organization Address City/State/ZIP Code Phon [...] - BEAJ POCT Performing Organization Address City/[facility]/ZIP Code Phon e Number FV POINT OF CARE TEST, GLUCOSE POINT OF CARE TEST, GLUCOSE (ABNORMAL) Basic metabolic panel (02/03/2014 5:38 AM CDT) Patholo gist Method Time Signature Sodium 141 133 - 144 [facility] mmol/L [facility] Potassium 4.4 3.4 - 5.3 [facility] mmol/L [facility] Chloride 105 94 - 109 [facility] mmol/L [facility] [place] [facility] Carbon Dioxide 20 20 - 32 [facility] mmol/L [facility] Anion Gap 15 6 - 17 [facility] mmol/L [facility] Glucose 170 (H) 60 - 99 [facility] mg/dL [facility] [place] [facility] Urea Nitrogen 49 (H) 7 - 30 [facility] mg/dL [facility] [place] [facility] Creatinine 6.38 (H) 0.66 - [facility] 1.25 mg/dL [facility] [place] [facility] GFR Estimate 9 (L) >60 [facility] [...] Phon e Number [facility] [address] [place] [address] [facility] LABS (ABNORMAL) Phosphorus (02/03/2014 5:38 AM CDT) P athologist Signature Phosphorus 4.7 (H) 2.5 - 4.5 [facility] mg/dL [place] [facility] Specimen Anatomical Collection Method Collection Time Receive d Time (Source) Location / / Volume Laterality Blood specimen 02/03/2014 5:38 AM 014 5:40 (specimen) CDT AM CDT Omaira Chavez PA-C LAB - BLOOD ORDERABLES Performing Organization Address City/State/ZIP Code Phon e Number [facility] [address] [place] [address] [facility]S Magnesium (02/03/2014 5:38 AM CDT) athologist Signature Magnesium 2.0 1.6 - 2.3 [facility] mg/dL [place] [facility] Specimen Anatomical Collection Method Collection Time Receive d Time (Source) Location / / Volume Laterality Blood specimen 02/03/2014 5:38 AM 014 5:40 (specimen) CDT AM CDT Omaira Chavez PA-C LAB - BLOOD ORDERABLES Performing Organization Address City/State/ZIP Code Phon e Number [facility] [address] [place] [address] [facility] LABS (ABNORMAL) CBC with platelets differential (02/03/2014 5:38 AM CDT) Patholo gist Method Time Signature WBC 13.2 (H) 4.0 - [facility] 11.0 [place] 10e9/L [place] [facility] RBC Count 3.20 (L) 4.4 - 5.9 [facility] 10e12/L [facility] Hemoglobin 9.9 (L) 13.3 - [facility] 17.7 g/dL [facility] Hematocrit 30.2 (L) 40.0 - [facility] 53.0 % [facility] MCV 94 78 - 100 [facility] fl [facility] MCH 30.9 26.5 - [facility] 33.0 pg [facility] MCHC 32.8 31.5 - [facility] 36.5 g/dL [facility] RDW 14.5 10.0 - [facility] 15.0 % [facility] Platelet Count 108 (L) 150 - 450 [facility] 10e9/L [facility] Diff Method Automated [facility] Method [facility] % Neutrophils 96.9 % [facility] [place] [facility] % Lymphocytes 0.7 % [facility] % Monocytes 2.1 % [facility] [place] [facility] % Eosinophils 0.0 % [facility] % Basophils 0.1 % [facility] % Immature 0.2 % [facility] Granulocytes [facility] [place] [facility] Absolute 12.8 (H) 1.6 - 8.3 [facility] Neutrophil 10e9/L [facility] Absolute 0.1 (L) 0.8 - 5.3 [facility] Lymphocytes 10e9/L [facility] Absolute 0.3 0.0 - 1.3 [facility] Monocytes 10e9/L [facility] Absolute 0.0 0.0 - 0.7 [facility] Eosinophils 10e9/L [facility] Absolute 0.0 0.0 - 0.2 [facility] Basophils 10e9/L [facility] Abs Immature 0.0 0 - 0.4 [facility] Granulocytes 10e9/L [facility] Specimen Anatomical Collection Method Collection Time Receive d Time (Source) Location / / Volume Laterality Blood specimen 02/03/2014 5:38 AM 014 5:40 (specimen) CDT AM CDT Omaira Chavez PA-C LAB - BLOOD ORDERABLES Performing Organization Address City/[facility]/ZIP Code Phon e Number [address] LABS (ABNORMAL) Hemoglobin A1c (02/03/2014 5:38 AM CDT) Analysis Performed At Patho logist Time Signature Hemoglobin A1C 6.2 (H) 4.3 - 6.0 [facility] % [facility] Specimen Anatomical Collection Method Collection Time Receive d Time (Source) Location / / Volume Laterality Blood specimen 02/03/2014 5:38 AM 014 5:40 (specimen) CDT AM CDT Caitlin Owens MD LAB - BLOOD ORDERABLES Performing Organization Address City/[facility]/ZIP Code Phon e Number [address] LABS (ABNORMAL) Glucose by meter (02/03/2014 5:05 AM CDT) P athologist Signature Glucose 176 (H) 60 - 99 POINT OF CARE mg/dL TEST, GLUCOSE Specimen Anatomical Collection Method Collection Time Receive d Time (Source) Location / / Volume Laterality 02/03/2014 5:05 AM 4 5:10 CDT AM CDT Migel Merchant MD LAB - BEAJ POCT Performing Organization Address [facility] Phon e Number FV POINT OF CARE [...] LAB - BEAJ POCT Performing Organization Address [facility] Phon e Number FV POINT OF CARE [...] LAB - BEAJ POCT Performing Organization Address [facility] Code Phon e Number FV [...] LARES - BEAJ POCT Performing Organization Address [facility] Phon e Number FV POINT OF CARE TEST, GLUCOSE POINT OF CARE TEST, GLUCOSE Potassium (02/03/2014 1:18 AM CDT) athologist Signature Potassium 4.7 3.4 - 5.3 [facility] mmol/L [place] LABS Specimen Anatomical Collection Method Collection Time Receive d Time (Source) Location / / Volume Laterality Blood specimen 02/03/2014 1:18 AM 014 1:20 (specimen) CDT AM CDT Caitlin Owens MD LAB - BLOOD ORDERABLES Performing Organization Address City/[facility]/ZIP Code Phon e Number [facility] [address] LABS (ABNORMAL) Hemoglobin (02/03/2014 1:18 AM CDT) athologist Signature Hemoglobin 9.8 (L) 13.3 - 17.7 [facility] g/dL [place] LABS Specimen Anatomical Collection Method Collection Time Receive d Time (Source) Location / / Volume Laterality Blood specimen 02/03/2014 1:18 AM 014 1:20 (specimen) CDT AM CDT Caitlin Owens MD LAB - BLOOD ORDERABLES Performing Organization Address City/State/ZIP Code Phon e Number [address] LABS (ABNORMAL) Glucose by meter (02/03/2014 [...] CDT 12:15 AM CDT Migel Merchant MD [facility] POCT Performing Organization Address City/State/ZIP [...] athologist Signature Phosphorus 4.4 2.5 - 4.5 [facility] mg/dL CAMPUS LABS Specimen Anatomical Collection Method Collection Time Receive d Time (Source) Location / / Volume Laterality Blood specimen 02/02/2014 10:50 4 (specimen) PM CDT 11:06 PM CDT Caitlin Owens MD LAB - BLOOD ORDERABLES Performing Organization Address City/State/ZIP Code Phon e Number [facility] [address] LABS Magnesium (02/02/2014 10:50 PM CDT) athologist Signature Magnesium 1.8 1.6 - 2.3 [facility] mg/dL [place] LABS Specimen Anatomical Collection Method Collection Time Receive d Time (Source) Location / / Volume Laterality Blood specimen 02/02/2014 10:50 4 (specimen) PM CDT 11:06 PM CDT Caitlin Owens MD LAB - BLOOD ORDERABLES Performing Organization Address City/[facility]/ZIP Code Phon e Number [facility] [address] LABS (ABNORMAL) Basic metabolic panel (02/02/2014 10:50 PM CDT) [facility] gist Method Time Signature Sodium 138 133 - 144 [facility] mmol/L [facility] Potassium 4.5 3.4 - 5.3 [facility] mmol/L [facility] Chloride 104 94 - 109 [facility] mmol/L [facility] Carbon Dioxide 25 20 - 32 [facility] mmol/L [facility] Anion Gap 10 6 - 17 [facility] mmol/L [facility] Glucose 134 (H) 60 - 99 [facility] mg/dL [facility] Urea Nitrogen 44 (H) 7 - 30 [facility] mg/dL [facility] Creatinine 6.14 (H) 0.66 - [facility] 1.25 mg/dL [facility] GFR Estimate 9 (L) >60 [facility] mL/min/1.7 [place] m2 CAMPUS LABS GFR Estimate If 11 (L) >60 [facility] Black mL/min/1.7 [place] [address] CAMPUS LABS Calcium 8.8 8.5 - 10.4 [facility] mg/dL [facility]S Specimen Anatomical Collection Method Collection Time Receive d Time (Source) Location / / Volume Laterality Blood specimen 02/02/2014 10:50 4 (specimen) PM CDT 11:06 PM CDT Caitlin Owens MD LAB - BLOOD ORDERABLES Performing Organization Address City/State/ZIP Code Phon e Number [phone] [place] [address] LABS (ABNORMAL) CBC with platelets differential (02/02/2014 10:50 PM CDT) [facility] Method Time Signature WBC 8.2 4.0 - [facility] 11.0 [facility] 10e9/L [place] LABS RBC Count 3.34 (L) 4.4 - 5.9 [facility] 10e12/L [facility] Hemoglobin 10.3 (L) 13.3 - [facility] 17.7 g/dL [facility] Hematocrit 30.9 (L) 40.0 - [facility] 53.0 % [facility] MCV 93 78 - 100 [facility] fl [facility] MCH 30.8 26.5 - [facility] 33.0 pg [facility] MCHC 33.3 31.5 - [facility] 36.5 g/dL [facility] RDW 14.3 10.0 - [facility] 15.0 % [facility] Platelet Count 79 (L) 150 - 450 [facility] 10e9/L [facility] Diff Method Automated [facility] Method [facility] % Neutrophils 96.7 % [facility] LABS % Lymphocytes 1.6 % [facility] LABS % Monocytes 1.2 % [facility] LABS % Eosinophils 0.4 % [facility] % Basophils 0.0 % [facility] LAB[facility] % Immature 0.1 % [facility] Granulocytes [facility] Absolute 7.9 1.6 - 8.3 [facility] Neutrophil 10e9/L [facility] Absolute 0.1 (L) 0.8 - 5.3 [facility] Lymphocytes 10e9/L [facility] Absolute 0.1 0.0 - 1.3 [facility] Monocytes 10e9/L [facility] Absolute 0.0 0.0 - 0.7 [facility] Eosinophils 10e9/L [facility] Absolute 0.0 0.0 - 0.2 [facility] Basophils 10e9/L [facility] Abs Immature 0.0 0 - 0.4 [facility] Granulocytes 10e9/L [facility] Specimen Anatomical Collection Method Collection Time Receive d Time (Source) Location / / Volume Laterality Blood specimen 02/02/2014 10:50 4 (specimen) PM CDT 11:06 PM CDT Caitlin Owens MD LAB - BLOOD ORDERABLES Performing Organization Address City/State/ZIP Code Phon e Number [facility] [address] [place], [place] [phone] [place] [address] LABS (ABNORMAL) VENOUS PANEL (02/02/2014 10:09 PM CDT) [facility] gist Method Time Signature Ph Venous 7.31 (L) 7.32 - [facility] 7.43 pH [facility] PCO2 Venous 52 (H) 40 - 50 [facility] mm Hg [facility] PO2 Venous 34 25 - 47 [facility] mm Hg [facility] Bicarbonate 26 21 - 28 [facility] Venous mmol/L [facility] Base Deficit 0.3 mmol/L [facility] Venous [facility] Comment: Reference range: -7.7 to 1.9 FIO2 45 [facility] LABS Sodium 137 133 - 144 mmol/L [facility] LABS Potassium 4.4 3.4 - 5.3 mmol/L [facility] LABS Hemoglobin 10.0 (L) 13.3 - 17.7 g/dL [facility] LABS Glucose 116 (H) 60 - 99 mg/dL [facility] LABS Calcium Ionized Whole Blood 4.8 4.4 - 5.2 mg/dL [facility] LABS Specimen Anatomical Collection Method Collection Time Receive d Time (Source) Location / / Volume Laterality 02/02/2014 10:09 02/02/2014 PM CDT 10:14 PM CDT Migel Merchant MD LAB - BLOOD ORDERABLES Performing Organization Address City/State/ZIP Code Phon e Number [address] [address] [facility] LABS (ABNORMAL) Glucose by meter (02/02/2014 9:24 [...] Venous 7.35 7.32 - [facility] 7.43 pH [facility] PCO2 Venous 50 40 - 50 mm [facility] PO2 Venous 46 25 - 47 mm [facility] Hg [facility] Bicarbonate 28 21 - 28 [facility] Venous mmol/L [facility] Base Excess 1.8 mmol/L [facility] Venous [facility] Comment: Reference range: -7.7 to 1.9 FIO2 100% [facility] LABS Sodium 141 133 - 144 mmol/L [facility] LABS Potassium 3.7 3.4 - 5.3 mmol/L [facility] LABS Hemoglobin 10.3 (L) 13.3 - 17.7 g/dL [facility] LABS Glucose 76 60 - 99 mg/dL [facility] LABS Calcium Ionized Whole Blood 4.8 4.4 - 5.2 mg/dL [facility] LABS Specimen Anatomical Collection Method Collection Time Receive d Time (Source) Location / / Volume Laterality 02/02/2014 6:40 PM 4 6:44 CDT PM CDT Migel Merchant MD LAB - BLOOD ORDERABLES Performing Organization Address City/[facility]/ZIP Code Phon e Number [facility] [address] [place] [address] [facility] LABS Glucose by meter (02/02/2014 5:11 PM CDT) P athologist Signature Glucose 89 60 - 99 POINT OF CARE mg/dL TEST, GLUCOSE Specimen Anatomical Collection Method Collection Time Receive d Time (Source) Location / / Volume Laterality 02/02/2014 5:11 PM 4 5:15 CDT PM CDT Migel LARES - BEAJ POCT Performing Organization Address City/[facility]/ZIP Code Phon e Number FV [...] - BEAJ POCT Performing Organization Address City/[facility] Code Phon e Number FV [...] MARYELLEN Blood component (02/02/2014 2:07 PM CDT) Screenz Method Time Signature Unit Number [id number] [facility] LABS Blood Red Blood [facility] Component Cells [facility] Leukocyte [place] LABS Reduced Division 00 [facility] LABS Status of No longer [facility] Unit available [facility] 02/06/2014 HOSPITAL LAB 0300 Specimen Anatomical Collection Method Collection Time Receive d Time (Source) Location / / Volume Laterality 02/02/2014 2:07 PM 4 2:10 CDT PM CDT Caitlin Owens MD LABORATORY Performing Organization Address City/State/ZIP Code Phon e Number [place] [address] [address] [place], [place] [address] [facility] LABS [facility] LAB Blood component (02/02/2014 2:07 PM CDT) Screenz Method Time Signature Unit Number [id number] [facility] LABS Blood Red Blood [facility] Component Cells [facility] LABS Reduced Division 00 [facility] Number [facility] Status of No longer [facility] Unit available [facility] 02/06/2014 HOSPITAL LAB 0300 Specimen Anatomical Collection Method Collection Time Receive d Time (Source) Location / / Volume Laterality 02/02/2014 2:07 PM 201 4 2:10 CDT PM CDT Caitlin Owens MD LABORATORY Performing Organization Address City/State/ZIP Code Phon e Number M [facility] [address] [place], [place] [address] HOSPITAL [facility] LABS [facility] LAB ABO/Rh type and screen (02/02/2014 2:07 PM CDT) Patholo gist Method Time Signature Units Ordered 2 [facility] LABS ABO A [facility] LABS RH(D) Pos [facility] LABS Antibody Neg [facility] Screen [facility] Test Valid [facility] Only At [facility] BLOOD BANK Center,[facility] LAB w Hospital Specimen 02/05/2014 [facility] BLOOD BANK LAB Crossmatch Red Blood [facility] Cells [facility] Specimen Anatomical Collection Method Collection Time Receive d Time (Source) Location / / Volume Laterality Blood specimen 02/02/2014 2:07 PM 014 2:10 (specimen) CDT PM CDT Caitlin Owens MD LAB - BLOOD BANK TEST ORDER Performing Organization Address City/State/ZIP Code Phon e Number [facility] [address] [place] [address] [facility] LABS [facility] BLOOD BANK LAB (ABNORMAL) Lipid Profile (02/02/2014 2:07 PM CDT) P athologist Signature Cholesterol 135 <200 mg/dL [facility] LABS Comment: LDL Cholesterol is the primary guide to therapy. The NCEP recommends further evaluation of: patients with cholesterol greater than 200 mg/dL if additional risk facto rs are present, cholesterol greater than 240 mg/dL, triglycerides greater than 1 50 mg/dL, or HDL less than 40 mg/dL. Triglycerides 124 0 - 150 mg/dL [facility] LABS HDL Cholesterol 34 (L) >40 mg/dL [facility] LABS LDL Cholesterol Calculated 77 0 - 129 mg/dL [facility] LABS Comment: LDL Cholesterol is the primary guide to therapy: LDL-cholesterol goal in high risk patients is <100 mg/dL and in very high risk patients is <70 mg/dL. VLDL-Cholesterol 25 0 - 30 mg/dL [facility] Cholesterol/HDL Ratio 4.0 0.0 - 5.0 [facility] Specimen Anatomical Collection Method Collection Time Receive d Time (Source) Location / / Volume Laterality Blood specimen 02/02/2014 2:07 PM 014 2:08 (specimen) CDT PM CDT Caitlin Owens MD LAB - BLOOD ORDERABLES Performing Organization Address City/[facility]/ZIP Code Phon e Number [facility] [address] LABS (ABNORMAL) Hemoglobin A1c (02/02/2014 2:07 PM CDT) Analysis Performed At Patho logist Time Signature Hemoglobin A1C 6.2 (H) 4.3 - 6.0 [facility] LABS Specimen Anatomical Collection Method Collection Time Receive d Time (Source) Location / / Volume Laterality Blood specimen 02/02/2014 2:07 PM 014 2:08 (specimen) CDT PM CDT Caitlin Owens MD LAB - BLOOD ORDERABLES Performing Organization Address City/[facility]/ZIP Code Phon e Number [facility] [address] [place], [place] [phone] [place] [address] LABS Hepatitis C antibody (02/02/2014 2:07 PM [...] Phon e Number [facility] 500 [place], [place] [phone] [place] [address] MICROBIOLOGY Hepatitis B core antibody IgM (02/02/2014 [...] Phon e Number [facility] 500 [place], [place] [phone] [place] [address] MICROBIOLOGY Hepatitis B surface antigen (02/02/2014 2:07 PM CDT) [facility] Signature Hep B Surface Negative NEG [facility] Agn MICROBIOLOGY Specimen Anatomical Collection Method Collection Time Receive d Time (Source) Location / / Volume Laterality Blood specimen 02/02/2014 2:07 PM 2 014 2:08 (specimen) CDT PM CDT Caitlin Owens MD LAB - BLOOD ORDERABLES Performing Organization Address City/State/ZIP Code Phon e Number [facility] [address] [place], [place] [phone] [place] [address] MICROBIOLOGY HIV Antigen Antibody Combo (02/02/2014 2:07 PM CDT) [facility] Signature HIV Antigen Nonreactive NR [facility] Antibody HIV-1 p24 Ag & HIV-1/HIV-2 Ab Not Detected [facility] LABS Specimen Anatomical Collection Method Collection Time Receive d Time (Source) Location / / Volume Laterality Blood specimen 02/02/2014 2:07 PM 2 014 2:08 (specimen) CDT PM CDT Caitlin Owens MD LAB - BLOOD ORDERABLES Performing Organization Address City/[facility]/ZIP Code Phon e Number [facility] [address] LABS EBV Capsid Antibody IgM (02/02/2014 2:07 PM CDT) [facility] Signature EBV Capsid <0.2 0.0 - 0.8 [facility] Antibody IgM No detectable antibody. [facility] [place] LABS Specimen Anatomical Collection Method Collection Time Receive d Time (Source) Location / / Volume Laterality Blood specimen 02/02/2014 2:07 PM 2 014 2:08 (specimen) CDT PM CDT Caitlin Owens MD LAB - BLOOD ORDERABLES Performing Organization Address City/[facility]/ZIP Code Phon e Number [facility] [address] [place], [place] [phone] [place] [address] LABS (ABNORMAL) EBV Capsid Antibody IgG (02/02/2014 2:07 PM CDT) Patholo gist Method Time Signature EBV Capsid >8.0 0.0 - 0.8 [facility] Antibody IgG Positive, suggests recent or past exposure [facility] (H) [place] LABS Specimen Anatomical Collection Method Collection Time Receive d Time (Source) Location / / Volume Laterality Blood specimen 02/02/2014 2:07 PM 014 2:08 (specimen) CDT PM CDT Caitlin Owens MD LAB - BLOOD ORDERABLES Performing Organization Address City/[facility]/ZIP Code Phon e Number [facility] [address] LABS CMV antibody IgM (02/02/2014 2:07 PM CDT) Analysis Performed At Patho logist Time Signature CMV Antibody <0.2 0.0 - 0.8 [facility] IgM Negative [facility] LABS Specimen Anatomical Collection Method Collection Time Receive d Time (Source) Location / / Volume Laterality Blood specimen 02/02/2014 2:07 PM 014 2:08 (specimen) CDT PM CDT Caitlin Owens MD LAB - BLOOD ORDERABLES Performing Organization Address City/[facility]/ZIP Code Phon e Number [facility] [address] LABS (ABNORMAL) CMV Antibody IgG (02/02/2014 2:07 PM CDT) P athologist Signature CMV Antibody 7.8 (H) 0.0 - 0.8 [facility] IgG [facility] LABS Comment: Positive Specimen Anatomical Collection Method Collection Time Receive d Time (Source) Location / / Volume Laterality Blood specimen 02/02/2014 2:07 PM 014 2:08 (specimen) CDT PM CDT Caitlin Owens MD LAB - BLOOD ORDERABLES Performing Organization Address City/[facility]/ZIP Code Phon e Number [address] LABS (ABNORMAL) Comprehensive metabolic panel (02/02/2014 2:07 PM CDT) Patholo gist Method Time Signature Sodium 141 133 - 144 [facility] mmol/L [facility] Potassium 4.2 3.4 - 5.3 [facility] mmol/L [facility] Chloride 101 94 - 109 [facility] mmol/L [facility] Carbon Dioxide 26 20 - 32 [facility] mmol/L [facility] Anion Gap 13 6 - 17 [facility] mmol/L [facility] Glucose 112 (H) 60 - 99 [facility] mg/dL [facility] Urea Nitrogen 42 (H) 7 - 30 [facility] mg/dL [facility] Creatinine 6.03 (H) 0.66 - [facility] 1.25 [place] mg/dL CAMPUS LABS GFR Estimate 9 (L) >60 [facility] mL/min/1. [place] 7m2 [place] LABS GFR Estimate If 11 (L) >60 [facility] Black mL/min/1. [place] [address] CAMPUS LABS Calcium 9.9 8.5 - [facility] 10.4 [place] mg/dL [facility] LABS Bilirubin Total 0.7 0.2 - 1.3 [facility] mg/dL [facility] Albumin 4.2 3.3 - 4.9 [facility] g/dL [facility] Protein Total 7.5 6.8 - 8.8 [facility] g/dL [facility] Alkaline 88 40 - 150 [facility] Phosphatase U/L [facility] ALT 33 0 - 70 [facility] U/L [facility] AST 18 0 - 45 [facility] U/L [facility] Specimen Anatomical Collection Method Collection Time Receive d Time (Source) Location / / Volume Laterality Blood specimen 02/02/2014 2:07 PM 014 2:08 (specimen) CDT PM CDT Caitlin Owens MD LAB - BLOOD ORDERABLES Performing Organization Address City/State/ZIP Code Phon e Number [phone] [place] [address] LABS (ABNORMAL) CBC with platelets differential (02/02/2014 2:07 PM CDT) [facility] gist Method Time Signature WBC 6.3 4.0 - [facility] 11.0 [place] 10e9/L [place] LABS RBC Count 3.71 (L) 4.4 - 5.9 [facility] 10e12/L [facility] Hemoglobin 11.5 (L) 13.3 - [facility] 17.7 g/dL [facility] Hematocrit 33.7 (L) 40.0 - [facility] 53.0 % [facility] [place] LAB[facility] MCV 91 78 - 100 [facility] fl [facility] MCH 31.0 26.5 - [facility] 33.0 pg [facility] [place] LAB[facility] MCHC 34.1 31.5 - [facility] 36.5 g/dL [facility] RDW 14.0 10.0 - [facility] 15.0 % [facility] Platelet Count 110 (L) 150 - 450 [facility] 10e9/L [facility] Diff Method Automated [facility] Method [facility] % Neutrophils 52.4 % [facility] LABS % Lymphocytes 32.1 % [facility] LABS % Monocytes 7.9 % [facility] % Eosinophils 7.1 % [facility] % Basophils 0.3 % [facility] % Immature 0.2 % [facility] Granulocytes [facility] Absolute 3.3 1.6 - 8.3 [facility] Neutrophil 10e9/L [facility] Absolute 2.0 0.8 - 5.3 [facility] Lymphocytes 10e9/L [facility] Absolute 0.5 0.0 - 1.3 [facility] Monocytes 10e9/L [facility] Absolute 0.5 0.0 - 0.7 [facility] Eosinophils 10e9/L [facility] Absolute 0.0 0.0 - 0.2 [facility] Basophils 10e9/L [facility] Abs Immature 0.0 0 - 0.4 [facility] Granulocytes 10e9/L [facility] Specimen Anatomical Collection Method Collection Time Receive d Time (Source) Location / / Volume Laterality Blood specimen 02/02/2014 2:07 PM 014 2:08 (specimen) CDT PM CDT Caitlin Owens MD LAB - BLOOD ORDERABLES Performing Organization Address City/[facility] Code Phon e Number [address] LABS Creatinine urine calculation only (02/02/2014 2:00 PM CDT) P athologist Signature Creatinine 88 mg/dL [facility] Urine [place] LABS Specimen Anatomical Collection Method Collection Time Receive d Time (Source) Location / / Volume Laterality 02/02/2014 2:00 PM 4 2:12 CDT PM CDT Caitlin Owens MD LAB - URINE ORDERABLES Performing Organization Address City/[facility] Phon e Number [address] LABS (ABNORMAL) Urine culture (02/02/2014 2:00 PM CDT) Component Value Ref Test Analysis Performed At Patholo gist Range Method Time Signature Specimen Midstream Urine [facility] Description [facility] Special Specimen received [facility] Requests in preservative MICROBIOLOGY Culture Micro <10,000 [...] GENERAL ORDERABL ES Performing Organization Address City/[facility] Code Phon e Number [address] LABS [facility] MICROBIOLOGY (ABNORMAL) Protein random urine (02/02/2014 2:00 PM CDT) [facility] Method [place] Signature Protein Random 1.89 g/L [facility] Urine [facility] Protein Total 2.15 (H) 0 - 0.2 [facility] Urine g/gr g/g Cr [facility] LABS Specimen Anatomical Collection Method Collection Time Receive d Time (Source) Location / / Volume Laterality Urine specimen URINE SPECIMEN 02/02/2014 2:00 PM 02/02 2:12 (specimen) OBTAINED BY CLEAN CDT PM CDT CATCH PROCEDURE / Unknown Caitlin Owens MD LAB - URINE ORDERABLES Performing Organization Address City/[facility] Phon e Number [address] LABS (ABNORMAL) Routine UA with microscopic (02/02/2014 2:00 PM CDT) [facility] Method Time Signature Color Urine Light Yellow [facility] LABS Appearance Urine Clear [facility] LABS Glucose Urine 70 (A) NEG mg/dL [facility] LABS Bilirubin Urine Negative NEG [facility] LABS Ketones Urine Negative NEG mg/dL [facility] LABS Specific [place] 1.008 1.003 - [facility] Urine 1.035 [facility] Blood Urine Negative NEG [facility] LABS pH Urine 8.0 (H) 5.0 - 7.0 [facility] pH [facility] [place] [facility] Protein Albumin 100 (A) NEG mg/dL [facility] Urine [facility] Urobilinogen Normal 0.0 - 2.0 [facility] mg/dL mg/dL [facility] Nitrite Urine Negative NEG [facility] LABS Leukocyte Negative NEG [facility] Esterase Urine [facility] Source Clean catch [facility] urine [facility] WBC Urine 1 0 - 2 [facility] /HPF [facility] RBC Urine 0 0 - 2 [facility] /HPF [facility] Squamous <1 0 - 1 [facility] Epithelial /HPF /HPF [place] Urine [facility] Specimen Anatomical Collection Method Collection Time Receive d Time (Source) Location / / Volume Laterality Urine specimen URINE SPECIMEN 02/02/2014 2:00 PM 02/02 2:12 (specimen) OBTAINED BY CLEAN CDT PM CDT CATCH PROCEDURE / Unknown Caitlin Owens MD LAB - URINE ORDERABLES Performing Organization Address City/State/ZIP Code Phon e Number [id number] [place] [address] LABS (ABNORMAL) Glucose by meter (02/02/2014 1:59 PM CDT) athologist Signature Glucose 115 (H) 60 - 99 POINT OF CARE mg/dL TEST, GLUCOSE Specimen Anatomical Collection Method Collection Time Receive d Time (Source) Location / / Volume Laterality 02/02/2014 1:59 PM 4 2:05 CDT PM CDT Migel Merchant MD LAB - BEAKER POCT Performing Organization Address City/[facility]/ZIP Code Phon e Number [facility] POINT OF CARE TEST, GLUCOSE POINT OF CARE TEST, GLUCOSE EKG 12-lead, tracing only (02/02/2014 1:58 PM CDT) [facility] gist Method Time Signature Interpretation ECG [...] Ganesh Covarrubias RN) 650 mg, Oral, ONCE, On Tue02/06/14 at 14 00, For 1 dose, 30 minutes prior to anti-rejection/antibody therapy. Maximum acetaminophen dose from all sources = 75 mg/kg/day not to exceed 4 grams/day. anti-thymocyte globulin (THYMOGLOBULIN - Rabbit) 75 mg in NaCl 0.9% IVPB (COMPLETED) 1440 (New Bag - Provider: Ganesh Covarrubias RN) 75 mg, Intravenous Central line, ONCE, O n Tue02/06/14 at 1430, For 1 dose, For CENTRAL catheter. Infuse first dose over 6 hours, and subsequent doses over 4-6 hours through an in-line 0.22 micron filter. benzocaine (HURRICAINE/TOPEX) 20 % spray 1-4 mL (COMPL ETED) 0915 (Given - Provider: Viry Kessler RN) 1-4 mL (1-4 spray), Mouth/Throat, ONCE, On Tue02/06/14 at 0930, For 1 dose, When verbally ordered by the prescriber. [place] throat with 1-4 sprays 5 minutes prior to procedure in the [facility] procedure room , Cardiac Intra-procedure clotrimazole (MYCELEX) lozenge 10 mg 1205 (Given - Pro vider: Ganesh Covarrubias RN)1335 (Given - Provider: Ganesh Covarrubias RN)1952 (Given - Provider: Annmarie Colby, BOGDAN) 0837 (Given - Provider: Lashaun Braswell, BOGDAN)1347 (Given - Provider: Lashaun Braswell, RN)2004 (Given - Provider: Annmarie Colby, BOGDAN) 0809 (Given - Provider: Amanda Hernandez RN)1400 (Canceled Entry - Provider: Orders Generic Provider - Comment: Automatically canceled at discontinue of medication order) 10 mg, Buccal, 3 TIMES DAILY, First dose on Tue02/03/14 at 0800, Slowly dissolve in mouth; do not chew or swallow whole. diphenhydrAMINE (BENADRYL) capsule 25-50 mg (COMPLETED ) 1342 (Given - Provider: Ganesh Covarrubias RN) 25-50 mg, Oral, ONCE, On Tue02/06/14 at 1400, For 1 dose, 30 minutes prior to anti-rejection/antibody therapy. furosemide (LASIX) injection 20 mg (COMPLETED) 1202 (Given - Provider: Lashaun Braswell, BOGDAN) 20 mg, Intravenous, ONCE, On Tue02/07/14 at 1100, For 1 dose insulin aspart (NovoLOG) injection (RAPID ACTING) (CAN CELED) 1206 (Given - Provider: Ganesh Covarrubias RN)1840 (Given - Provider: Lashaun Braswell, BOGDAN) 0844 (Given - Provider: Lashaun Braswell, BOGDAN)1343 (Given - Provider: Lashaun Braswell RN)1924 (Given - Provider: Annmarie Colby, BOGDAN) 0902 (Given - Provider: Amanda Hernandez, BOGDAN)1406 [...] aspart (NovoLOG) injection (RAPID ACTING) (CAN CELED) 220 (Given - Provider: Annmarie Colby RN) 2223 [...] injection (CANCELED) 1840 (Gi isael - Provider: Lasahun Braswell, BOGDAN) Subcutaneous, DAILY WITH SUPPER, First d ose [...] % mouth solution 15 mL (COMPLE ALOK) 914 (Given - Provider: Viry Kessler RN) 15 mL, Mouth/Throat, ONCE, On Tue 4 at 0930, For 1 dose, Gargle and [...] mg, Oral, 2 TIMES DAILY, First dose ( after last modification) on Tue02/04/14 at 2000, For Adults, Hold if HR < 60 or SBP <100. mycophenolate (CELLCEPT-BRAND NAME) capsule 1,000 mg 1 204 (Given - Provider: Ganesh Covarrubias RN)1758 (Given - Provider: Lashaun Braswell RN) 0838 (Given - Provider: Lashaun Braswell, [...] on Tue02/03/14 at 0800, DO NOT CR USH. polyethylene [...] 0836 (Given - Provider: Lashaun Braswell RN) 30 mg, Oral, DAILY, First dose [...] Oral, 2 TIMES DAILY, First dos e (after last modification) on 02/03/14 at 0945, Start on POD #2, Hold if PO intake < 300 mL's/Day. sertraline (ZOLOFT) tablet 100 mg (CANCELED) 1202 (Giv en - Provider: Ganesh Covarrubias RN) 0836 (Given - Provider: Lashaun Braswell RN) 0809 (Give n - Provider: Amanda Hernandez RN) 100 mg, Oral, DAILY, First dose on 02/03/14 at 1515 sodium chloride (PF) 0.9% PF flush 10 mL (CANCELED) 01 00 (Not Given - Provider: Farideh Hodgson RN - Reason: IV Infusing)1207 (Given - Provider: Ganesh Covarrubias RN)1622 (Given - Provider: Lashaun Braswell, RN)1656 (Given - Provider: Odalis Seaman)2209 (Given - Provider: Annmarie Colby RN) 0803 (Canceled Entry - Provider: Lashaun Braswell [...] 1203 (Given - Provider: Ganesh Covarrubias RN) Routine, 1 tablet, Oral, USER SPECIFIED (Once per day on Tue), First dose (after last modification) on Tue02/06/14 at 0800, Indications: PCP prophylaxis sulfamethoxazole-trimethoprim (BACTRIM,S EPTRA) 400-80 MG per tablet. DOSE = 1 tablet 1226 (Given - Provider: Lashaun Braswell RN) 0809 (Given - Provider: Amanda Hernandez RN) Routine, 1 tablet, Oral, DAILY, First do se (after last modification) on Tue02/07/14 at 1200, Indications: PCP prophylaxis tacrolimus (Prograf BRAND) capsule 1.5 mg 2028 (Not Gi isael - Provider: Lynne Gatica [facility] - Reason: Other - Comment: [...] 1203 (Given - Provider: Ganesh Covarrubias RN) Routine, 450 mg, Oral, EVERY OTHER DAY, First dose (after last modification) on Tue02/06/14 at 0900, With Normal WBC Count. Pharmacy to adjust per Renal Dosing Protocol., Indications: Cytomegalovirus Disease Pharmacoprophylaxis valGANciclovir (VALCYTE) tablet 450 mg 1 227 (Given - Provider: Lashaun Braswell, RN) 0812 (Given - Provider: Amanda low RN) Routine, 450 mg, Oral, DAILY, First dose (after last modification) on Tue02/07/14 at 1200, With Normal WBC Count. Pharmacy to adjust per Renal Dosing Protocol., Indications: Cytomegalovirus Disease Pharmacoprophylaxis warfarin (COUMADIN) tablet 5 mg (COMPLETED) 1820 (Given - Provider: Lashaun Braswell, RN) 5 mg, Oral, ONCE AT 6PM, On Tue02/07/14 at 1800, For 1 dose warfarin (COUMADIN) tablet 5 mg 5 mg, Oral, ONCE AT 6PM, Tue02/08/14 at 1800, For 1 dose Continuous Medication Order 02/06/2014 02/07/2014 02/08/2014 heparin drip 25,000 units in D5W 250 mL (CANCELED) 030 0 (New Bag - Provider: Farideh Hodgson, BOGDAN)0610 (Stopped - Provider: Farideh Hodgson, RN) Intravenous, CONTINUOUS, Starting on Tue02/05/14 at 1115, Starting Drip Rate = 1800 units/hr High Intensity Heparin Protocol. GOAL: HEPARIN Xa (10a) LEVEL = 0.30-0.70 (PTT = 60-101 seconds). Max 1000 un its/hr if patient getting TNK and > 70kg . Beginning with the Heparin Xa (10a) Level collected 6 hours after starting Heparin, adjust Heparin according to guidelines. Release Heparin Xa (10a) Level or toribio for blood draw 6 hrs after start [...] HOLD 30 min and Reduce by 100 units/hr . If Xa (10a) 1.02 - 2.06 then HOLD 60 m in and Reduce by 150 units/hr If Xa (10a) >2.06 then HOLD 60 min and Reduce by 200 units/hr . PRN Medication Order 02/06/2014 02/07/2014 02/08/2014 bisacodyl (DULCOLAX) suppository 10 mg (CANCELED) 1345 (Given - Provider: Lashaun Braswell, RN) 10 mg, Rectal, DAILY PRN, constipation, Starting on Tue02/04/14 at 0000, Start on POD #2. ondansetron (ZOFRAN) injection 4 mg (CANCELED) 0446 (Given - Provider: Annmarie Colby, RN)1212 (Given - Provider: Amanda Hernandez, BOGDAN) 4 mg, Intravenous, EVERY 6 HOURS PRN, na usea, vomiting, Administer over 2-5 Minutes, Starting on Tue02/03/14 at 0055, Try prochlorperazine (COMPAZINE) first and if nausea is not resolved in 15-30 minutes, then administer ondansetron (ZOFRAN). oxyCODONE (ROXICODONE) immediate release tablet 5 mg 0 015 (Given - Provider: Farideh Hodgson, RN)1345 (Given - Provider: Ganesh Covarrubias RN)1955 (Given - Provider: Annmarie Colby, BOGDAN) 5 mg, Oral, EVERY 4 HOURS PRN, moderate to severe pain, Starting on Tue02/05/14 at 0750 sodium chloride (PF) 0.9% PF [...] draw. documented in this encounter Care Teams Junior Java Developer Relationship Specialty Start Date End Date Momo Forbes PCP - General Family Practice 01/02/14 [facility] [address] [place] [address] Ingrid Santana, RN Registered Nurse Transplant 02/10/12 10/01/15 documented as of this encounter
--- OUTSIDE RECORDS SUMMARY | 2022-05-19 11:42 | XMS_ITS | Encounter Summary ---
:1950 Author Organization [place] Address [facility] [place] [address] Care Team Providers Name Role Phone Ingrid Santana RN Unavailable Momo Forbes Primary Care Provider Encounter Details Date Type Department Care Team Description 01/21/2014 Results Only LABORATORY RESULTS Mingo Dangelo MD [address] [facility] [address] [place] [address] (Wo rk) Social History Tobacco [...] Results HLA Flow T/B Crossmatch Allo (01/21/2014) [facility] Method Time Signature Crossmatch Donor:[id number], ?Crossmatch Date:02/02/2014 HISTOTRAC Result (Note) Serum Date [...] Phon e Number [facility] Immunology/Histocompatabil [place], [place] [address] ity ealth [facility] [address] [facility] [address] Building, Room 3-580 HISTOTRAC documented in this encounter Visit Diagnoses Not on filedocumented in this encounter Care Teams Climate Change Risk Assessor Relationship Specialty Start Date End Date Momo Forbes PCP - General Family Practice 01/02/14 [facility] [address] [place] [address] Ingrid Santana, RN Registered Nurse Transplant 02/10/12 10/01/15 documented as of this encounter
--- OUTSIDE RECORDS SUMMARY | 2022-05-19 11:42 | XMS_ITS | Encounter Summary ---
:1950 Author Organization [place] Address Count includes the [facility]0 [facility] [place] [address] Care Team Providers Name Role Phone Toña [...] (madeleine betes mellitus), type 2 (H) Building [address] [place] [phone] Social History Tobacco Use Types Packs/Day Years [...] uncontrolled documented in this encounter Care Teams Stylist Apprentice Relationship Specialty Start Date End Date Toña Jones MD PCP - General Nephrology 11/25/11 01/01/14 Ingrid Santana RN Registered Nurse Transplant 02/10/12 10/01/15 documented as of this encounter
--- OUTSIDE RECORDS SUMMARY | 2022-05-19 11:43 | XMS_ITS | Encounter Summary ---
:1950 Author Organization [place] Address [facility] [place] [address] Care Team Providers Name Role Phone Toña Jones MD Primary Care Provider Ingrid Santana RN Unavailable Momo Forbes Primary Care Provider Encounter Details Date Type Department Care Team Description 02/05/2013 Historic Results GH CONVERSION Provider, MD Macrela Social History Tobacco Use Types Packs/Day Years [...] an attachment that is no t available. Macrela Cordero MD LAB - BLOOD ORDERABLES documented in this encounter Visit Diagnoses Not on filedocumented in this encounter Care Teams Medical Receptionist Relationship Specialty Start Date End Date Toña Jones MD PCP - General Nephrology 11/25/11 01/01/14 Momo Forbes PCP - General Family Practice 01/02/14 [facility] [address] [place] [address] Ingrid Santana, RN Registered Nurse Transplant 02/10/12 10/01/15 documented as of this encounter
--- OUTSIDE RECORDS SUMMARY | 2022-05-19 11:43 | XMS_ITS | Encounter Summary ---
:1950 Author Organization [place] Address [facility] [place] [address] Care Team Providers Name Role Phone Toña [...] on filedocumented in this encounter Care Teams Smocker Relationship Specialty Start Date End Date Toña Jones MD PCP - General Nephrology 11/25/11 01/01/14 Momo Forbes PCP - General Family Practice 01/02/14 [facility] [address] [place] [address] Ingrid Santana, RN Registered Nurse Transplant 02/10/12 10/01/15 documented as of this encounter
--- OUTSIDE RECORDS SUMMARY | 2022-05-19 11:43 | XMS_ITS | Encounter Summary ---
:1950 Author Organization [place] Address [facility] [place] [address] Care Team Providers Name Role Phone Toña Jones MD Primary Care Provider Ingrid Santana RN Unavailable Reason for Visit Reason Comments Transplant Evaluation Kidney transplant evaluation - chronic kidney disease Encounter Details Date Type Department Care Team Description 02/10/2012 Office Visit The Transplant Edda Cardenas, Ty Blink, DM (diabetes 2nd Floor, Clinic 2A MD mellitus), type 2 (H) Tommy Wilburn (Primar y Dx) [address] [phone] Social History Tobacco Use Types [...] this time. Patient to follow up with utilization coordinator. documented in this encounter Plan of Treatment Not on filedocumented as of this encounter Visit Diagnoses Diagnosis DM (diabetes mellitus), type 2 (H) - Ana ashley Type II or unspecified type diabetes aung litus without mention of complication, not stated as uncontrolled documented in this encounter Care Teams Parts Remover Relationship Specialty Start Date End Date Toña Jones MD PCP - General Nephrology 11/25/11 01/01/14 Ingrid Santana RN Registered Nurse Transplant 02/10/12 10/01/15 documented as of this encounter
--- OUTSIDE RECORDS SUMMARY | 2022-05-19 11:43 | XMS_ITS | Encounter Summary ---
:1950 Author Organization [place] Address [address] [place] [address] Care Team Providers Name Role Phone Toña Jones MD Primary Care Provider Ingrid Santana RN Unavailable Encounter Details Date Type Department Care Team Description 04/13/2012 Results Only LABORATORY RESULTS Mingo Dangelo MD [address] [facility] [address] [place] [address] (Wo rk) Social History Tobacco [...] HLA Lukasz Class I Single Antigen (04/13/2012) [facility] Method Time Signature SA1 Test Single Antigen [...] Phon e Number [facility] Immunology/Histocompatabil [place], [place] [address] ity [facility] [address] Building, Room 3-580 HISTOTRAC documented in this encounter Visit Diagnoses Not on filedocumented in this encounter Care Teams Cpr Ambulance Driver Relationship Specialty Start Date End Date Toña Jones MD PCP - General Nephrology 11/25/11 01/01/14 Ingrid Santana RN Registered Nurse Transplant 02/10/12 10/01/15 documented as of this encounter
--- OUTSIDE RECORDS SUMMARY | 2022-05-19 11:43 | XMS_ITS | Encounter Summary ---
:1950 Author Organization [place] Address [address] [place] [address] Care Team Providers Name Role Phone Toña Jones MD Primary Care Provider Ingrid Santana RN Unavailable Encounter Details Date Type Department Care Team Description 10/11/2012 Results Only LABORATORY RESULTS Barbara Bradley MD [address] [place], [place] [address] Social History Tobacco Use [...] HLA Lukasz Class II Single Antigen (10/11/2012) [facility] Method Time Signature SA2 Test [...] / Volume Laterality 10/11/2012 10/12/2012 1:03 PM CUSTOMS EXAMINER Barbara Bradley MD LAB - IMMUNOLOGY ORDERABLES Performing Organization Address City/State/ZIP Code Phon e Number [facility] Immunology/Histocompatabil [place], [place] [address] ity [facility] [address] Building, Room 3-580 HISTOTRAC documented in this encounter Visit Diagnoses Not on filedocumented in this encounter Care Teams Injection Molding Machine Offbearer Relationship Specialty Start Date End Date Toña Jones MD PCP - General Nephrology 11/25/11 01/01/14 Ingrid Santana RN Registered Nurse Transplant 02/10/12 10/01/15 documented as of this encounter
--- OUTSIDE RECORDS SUMMARY | 2022-05-19 11:43 | XMS_ITS | Encounter Summary ---
:1950 Author Organization [place] Address [facility] [place] [address] Care Team Providers Name Role Phone Toña Jones MD Primary Care Provider Ingrid Santana RN Unavailable Reason for Visit Reason Comments Transplant Evaluation kidney Encounter Details Date Type Department Care Team Description 02/10/2012 Office Visit Nephrology Darian Joshi MD [address] [place] [address] [phone] Pre-transplant 2nd Floor, Clinic 2A Joseph Quintana MD [address] [facility] [address] [facility] [address] [place] [address] evaluation for Tommy Wilburn chronic kidney Building disease (Primary Dx) [address] [place] [address] Social History Tobacco Use Types [...] Dialysis Type: [facility]; and Dialysis unit: [facility] Primary Barber Or Beauty Shop Manager: Dr. 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 Yes Reported, Patient B thtxiug-Z-waumd acid (NEPHROCAPS) 1 MG capsule Take 1 [...] NEG Ketones Urine Negative NEG (mg/dL) Specific [place] Urine 1.010 1.003 - 1.035 Blood Urine [...] Report Value: Patient Name: ELINOR GUTHRIE MR#: [id number] Specimen #: [id number] Collected: 02/08/2012 07:07 Received: 02/08/2012 09:00 Reported: 02/11/2012 14:03 Ordering Phy(s): DARIAN JOSHI TEST(S) REQUESTED: A: Factor 5 Leiden and Factor 2 by PCR B: DNA Isolation, High purity extraction SPECIMEN DESCRIPTION: Blood METHODOLOGY: The regions of genomic DNA containing the F1180G Factor 5 gene mutation (Factor V Leiden) and the Factor 2(Prothrombin R26104F) gene mutation were simultaneously amplified using the polymerase chain reaction. The amplified products were digested with restriction endonuclease TaqI and products were analyzed by gel electrophoresis. RESULTS: FACTOR 5-LEIDEN RESULTS: Mutation analyzed: 1691G>A Factor 5 Mutation Interpretation: ABSENT Factor 5 Mutation genotype: G/G FACTOR 2/PROTHROMBIN RESULTS: Mutation analyzed: 40380N>A Factor 2 Mutation Interpretation: ABSENT Factor 2 Mutation genotype: G/G INTERPRETATION: The patient is negative for the Factor 5 mutation and negative for the Factor 2 mutation. This test was developed and its performance determined by the [facility]. It has not been cleared or approved by the U.S. Food and Drug Administration. The FDA has determined that such clearance or approval is not necessary. Pursuant to the requirements of CLIA'88, this laboratory has established and verified the test's accuracy and precision. This test is used for clinical purposes. Electronically Signed Out By: Liliya Stone MD TESTING LAB LOCATION: [address] [address] COLLECTION SITE: Client: [facility] Location: [facility]) HLA LUKASZ CLASS I SINGLE ANTIGEN [...] of an antiphospholipid syndrome, recommend anticardiolipin and binv-1-wbthmjswcymp (IgG and IgM) antibody tests. Dee Duenas M.D. [phone] 02-09-2012. APTT'S: Seconds Reagent = Stago LS [...] Range Ventricular Rate 60 Atrial Rate 60 FL Interval 186 QRS Duration 104 QT 440 QTc 440 P Moberly 36 R AXIS 0 T Moberly 36 Interpretation ECG Sinus rhythm Interpretation ECG [...] Function Test Value: Name: ELINOR GUTHRIE ID: [id number] Doctor: DONYA THOMAS Height: 72.00 in Age: [...] INTERPRETATION: The FVC, FEV1, FEV1/FVC ratio and UIO65-31% are within normal limits. The inspiratory flow [...] 02/10/2012 10:00 AM CDT >> AUSTEN FAUSTIN [facility] Feb 10, 2012 9:54 AM Took igor cc, reviewed meds and allergies documented in this encounter Plan of Treatment Not on filedocumented as of this encounter Visit Diagnoses Diagnosis Pre-transplant evaluation for chronic ki dney disease - Primary Other specified pre-operative examinatio n documented in this encounter Care Teams Shroudman Relationship Specialty Start Date End Date Toña Jones MD PCP - General Nephrology 11/25/11 01/01/14 Ingrid Santana RN Registered Nurse Transplant 02/10/12 10/01/15 documented as of this encounter
--- OUTSIDE RECORDS SUMMARY | 2022-05-19 11:43 | XMS_ITS | Encounter Summary ---
:1950 Author Organization [place] Address [facility] [place] [address] Care Team Providers Name Role Phone Toña Jones MD Primary Care Provider Ingrid Santana RN Unavailable Encounter Details Date Type Department Care Team Description 08/25/2012 Results Only LABORATORY RESULTS Barbara Bradley MD [address] [place], [place] [address] Social History Tobacco Use [...] AM Results f or this CROSSMATCH ALLO MECHANICAL SPREADER OPERATOR procedure ar e in the results section. documented in this encounter Results HLA Flow T/B Crossmatch Allo (08/25/2012 9:49 AM MECHANICAL SPREADER OPERATOR) [facility] Method Time Signature Crossmatch Donor:ABRAHAM [...] Laterality 08/25/2012 9:49 AM 01/04/201 3 9:06 MECHANICAL SPREADER OPERATOR AM MECHANICAL SPREADER OPERATOR Barbara Bradley MD LAB - IMMUNOLOGY ORDERABLES Performing Organization Address City/State/ZIP Code Phon e Number [facility] Immunology/Histocompatabil [place], [place] [address] ity ealth [facility] C[facility] [address], Room [address]-580 HISTOTRAC documented in this encounter Visit Diagnoses Not on filedocumented in this encounter Care Teams Wire Photo Operator Relationship Specialty Start Date End Date Toña Jones MD PCP - General Nephrology 11/25/11 01/01/14 Ingrid Santana, RN Registered Nurse Transplant 02/10/12 10/01/15 documented as of this encounter
--- OUTSIDE RECORDS SUMMARY | 2022-05-19 11:43 | XMS_ITS | Encounter Summary ---
:1950 Author Organization [place] Address [address] [place] [address] Care Team Providers Name Role Phone Toña Jones MD Primary Care Provider Ingrid Santana RN Unavailable Encounter Details Date Type Department Care Team Description 02/08/2012 Results Only LABORATORY RESULTS [facility]hi MD [address] [facility] [address] [place] [address] (Wo rk) Social History Tobacco [...] II Single Antigen (02/08/2012 7:07 AM CDT) [facility] Method Time Signature SA2 [...] Phon e Number [facility] Immunology/Histocompatabil [place], [place] [address] ity [facility] [address] [facility] [address] Building, Room 3-580 HISTOTRAC documented in this encounter Visit Diagnoses Not on filedocumented in this encounter Care Teams Industrial Yard Brake Coupler Relationship Specialty Start Date End Date Toña Jones MD PCP - General Nephrology 11/25/11 01/01/14 Ingrid Santana RN Registered Nurse Transplant 02/10/12 10/01/15 documented as of this encounter
--- OUTSIDE RECORDS SUMMARY | 2022-05-19 11:43 | XMS_ITS | Encounter Summary ---
:1950 Author Organization [place] Address [address] [place] [address] Care Team Providers Name Role Phone Toña Jones MD Primary Care Provider Ingrid Santana RN Unavailable Encounter Details Date Type Department Care Team Description 07/03/2012 Results Only LABORATORY RESULTS Barbara Bradley MD [address] [place], [place] [address] Social History Tobacco Use [...] HLA Lukasz Class II Single Antigen (07/03/2012) [facility] gist Method Time Signature SA2 Test [...] / Volume Laterality 07/03/2012 07/05/2012 1:57 PM INSPECTOR OF WEIGHTS AND MEASURES Barbara Bradley MD LAB - IMMUNOLOGY ORDERABLES Performing Organization Address City/State/ZIP Code Phon e Number [facility] Immunology/Histocompatabil [place], [place] [address] ity [facility] [address] Building, Room [address]-580 HISTOTRAC documented in this encounter Visit Diagnoses Not on filedocumented in this encounter Care Teams Leg Man Relationship Specialty Start Date End Date Toña Jones MD PCP - General Nephrology 11/25/11 01/01/14 Ingrid Santana RN Registered Nurse Transplant 02/10/12 10/01/15 documented as of this encounter
--- OUTSIDE RECORDS SUMMARY | 2022-05-19 11:43 | XMS_ITS | Encounter Summary ---
:1950 Author Organization [place] Address [facility] [place] [address] Care Team Providers Name Role Phone Toña Jones MD Primary Care Provider Ingrid Santana RN Unavailable Reason for Visit Reason Comments Social Work Services Encounter Details Date Type Department Care Team Description 02/10/2012 Office Visit [facility] Akanksha Stacy Organ transplant 2nd Floor, Clinic 2A SHALOM Zacarias candidate [facility] [address] [phone] Social History Tobacco Use Types Packs/Day Years [...] old Duration of Interview: 40 min Process: Ozdo-yx-Nrga Interview (counseling < 50%) Present at Appointment: Latrell, his brother Kiran and Latrell Zamora, Transplant Financial Organ Recovery CoordinatorWindows Security Engineer Worker: CECY Ortiz, [facility] Date: February 10, 2012 Type of transplant: Kidney Donor type: Latrell indicated that he does not know of any potential donors at this time. Cadaver Prior Transplants: No Status of Transplant: Current Living Situation Location: [address] [place] [phone] With Whom: Alone Family/ Social Support: Kiran lives in [place], [place]. Available, helpful Committed relationship: Latrell indicated [...] Income Savings Insurance Latrell has BC/BS through [employer] until 07/22/13. He has also applied for [...] that assist with fund raising. Discussed asking scale assembly set up worker for assistance with cobra [...] No Adequate Finances Yes Signature: CECY Ortiz, [facility] Title: Clinical Farm Equipment Mechanic Apprentice documented in this encounter Plan of Treatment Not on filedocumented as of this encounter Visit Diagnoses Diagnosis Organ transplant candidate - Primary Awaiting organ transplant status documented in this encounter Care Teams Nutrition Services Aide Relationship Specialty Start Date End Date Toña Jones MD PCP - General Nephrology 11/25/11 01/01/14 Ingrid Santana RN Registered Nurse Transplant 02/10/12 10/01/15 documented as of this encounter
--- OUTSIDE RECORDS SUMMARY | 2022-05-19 11:43 | XMS_ITS | Encounter Summary ---
:1950 Author Organization [place] Address [address] [facility] [place] [address] Care Team Providers Name Role Phone Toña Jones MD Primary Care Provider Ingrid Santana RN Unavailable Encounter Details Date Type Department Care Team Description 02/08/2012 Results Only LABORATORY RESULTS Jeff Joshi MD [facility] [address] [place] [address] (Wo rk) Social History Tobacco [...] LAB - IMMUNOLOGY ORDERABLES Performing Organization Address City/State/[facility] Code Phon e Number [facility] Immunology/Histocompatabil [place], [place] [address] ity [facility] C[facility] [address] [facility] [address] Building, Room 3-580 HISTOTRAC documented in this encounter Visit Diagnoses Not on filedocumented in this encounter Care Teams Dopeman Relationship Specialty Start Date End Date Toña Jones MD PCP - General Nephrology 11/25/11 01/01/14 Ingrid Santana RN Registered Nurse Transplant 02/10/12 10/01/15 documented as of this encounter
--- OUTSIDE RECORDS SUMMARY | 2022-05-19 11:43 | XMS_ITS | Encounter Summary ---
:1950 Author Organization [place] Address [address] [place] [address] Care Team Providers Name Role Phone Toña Jones MD Primary Care Provider Ingrid Santana RN Unavailable Reason for Visit (Routine) - Closed Specialty Diagnoses / Procedures Referred By Contact Refer red To Contact Radiology Diagnoses NM MPI SCAN Procedure Notes: UNSPECIFIED ESSENTIAL HYPERTENSION,PREOPERATIVE EXAMINATION, UNSPECIFIED, [facility] Nuclear Medicine Procedures RADIOLOGY 500 [place] [address] Phone: Referral ID Status Reason Start Date Expiration Date Visits Requ ested Visits Authorized [id number] Closed 02/11/2012 02/10/2013 1 1 Encounter Details Date Type Department Care Team Description 02/15/2012 Hospital Encounter [facility] Barbara Bradley ESRD (end stage [facility] Imaging MD Monae renal disease) (H) [address] [facility] [address] [place] [phone] [phone] Social History Tobacco Use Types Packs/Day Years [...] 1 tablet by mouth 0 02/18/2014 daily. sertraline (ZOLOFT) Take 100 mg by mouth 0 04/20/2016 100 MG tablet daily. zolpidem (AMBIEN) 10 Take 10 mg by mouth 0 03/06/2014 MG tablet nightly as needed Per patient on hold B cxobdsc-D-nweab acid Take 1 capsule by mouth 0 02/08/2014 (NEPHROCAPS) 1 MG daily. capsule lisinopril Take 40 mg by mouth 0 02/08 (PRINIVIL,ZESTRIL) 40 daily MG tablet METOPROLOL SUCCINATE Take 100 mg by mouth 0 02/08/2014 PO daily documented as of this encounter Plan of Treatment Not on filedocumented as of this encounter Visit Diagnoses Diagnosis ESRD (end stage renal disease) (H) End stage renal disease documented in this encounter Care Teams Program Coordinator Relationship Specialty Start Date End Date Toña Jones MD PCP - General Nephrology 11/25/11 01/01/14 Ingrid Santana RN Registered Nurse Transplant 02/10/12 10/01/15 documented as of this encounter
--- OUTSIDE RECORDS SUMMARY | 2022-05-19 11:43 | XMS_ITS | Encounter Summary ---
:1950 Author Organization [place] Address [facility]0 [facility] [place] [address] Care Team Providers Name Role Phone Toña Jones MD Primary Care Provider Ingrid Santana RN Unavailable Encounter Details Date Type Department Care Team Description 07/03/2012 Results Only LABORATORY RESULTS Barbara Bradley MD [address] [place], [place] [address] Social History Tobacco Use [...] in this encounter Results Virtual Crossmatch (07/03/2012) [facility] Method Time Signature Crossmatch Donor:GEOVANYKATHARINEABRAHAM Figueredo ? Crossmatch Date:07/24/2012 HISTOTRAC Result (Note) Serum Date ??Test ?Result ? Donor Specific Antibody ?Comments 07/03/2012 ??Class I/Virtxm1 ? DSA ?None ? 07/03/2012 ??Class II/Virtxm 1 ?DSA ?None ? Specimen (Source) Anatomical Collection Method Collection Time Re ceived Time Location / / Volume Laterality 07/03/2012 07/05/2012 1:57 PM FUSING LINE INSPECTOR Barbara Bradley MD LAB - IMMUNOLOGY ORDERABLES Performing Organization Address City/State/ZIP Code Phon e Number [facility] Immunology/Histocompatabil [place], [place] [address] [facility] [address] Building, Room 3-580 HISTOTRAC documented in this encounter Visit Diagnoses Not on filedocumented in this encounter Care Teams Milieu Therapist Relationship Specialty Start Date End Date Toña Jones MD PCP - General Nephrology 11/25/11 01/01/14 Ingrid Santana RN Registered Nurse Transplant 02/10/12 10/01/15 documented as of this encounter
--- OUTSIDE RECORDS SUMMARY | 2022-05-19 11:43 | XMS_ITS | Encounter Summary ---
:1950 Author Organization [place] Address [address] [place] [address] Care Team Providers Name Role Phone Toña Jones MD Primary Care Provider Ingrid Santana RN Unavailable Encounter Details Date Type Department Care Team Description 01/17/2013 Results Only LABORATORY RESULTS Barbara Bradley MD [address] [place], [place] [address] Social History Tobacco Use [...] HLA Lukasz Class I Single Antigen (01/17/2013) [facility] gist Method Time Signature SA1 Test [...] Phon e Number [facility] Immunology/Histocompatabil [place], [place] [address] ity [facility] Ctr [address], Room 3-580 HISTOTRAC documented in this encounter Visit Diagnoses Not on filedocumented in this encounter Care Teams Ordnance Artificer Relationship Specialty Start Date End Date Toña Jones MD PCP - General Nephrology 11/25/11 01/01/14 Ingrid Santana RN Registered Nurse Transplant 02/10/12 10/01/15 documented as of this encounter
--- OUTSIDE RECORDS SUMMARY | 2022-05-19 11:43 | XMS_ITS | Encounter Summary ---
:1950 Author Organization [place] Address [address] [place] [address] Care Team Providers Name Role Phone Toña Jones MD Primary Care Provider Ingrid Santana RN Unavailable Reason for Visit (Routine) - Closed Specialty Diagnoses / Procedures Referred By Contact Refer red To Contact Radiology Diagnoses NM MPI LEXISCAN Procedure Notes: UNSPECIFIED ESSENTIAL HYPERTENSION,PREOPERATIVE EXAMINATION, UNSPECIFIED, [facility] Nuclear Medicine Procedures RADIOLOGY 500 [place] [address] Phone: Referral ID Status Reason Start Date Expiration Date Visits Requ ested Visits Authorized [id number] Closed 02/11/2012 02/10/2013 1 1 Encounter Details Date Type Department Care Team Description 02/15/2012 Hospital Encounter [facility] Barbara Bradley Imaging MD Monae [address] [facility] [address] [place], [place] [phone] [phone] Social History Tobacco Use Types Packs/Day Years [...] as needed Per patient on hold B tnnlrln-B-eggve acid Take 1 capsule by mouth 0 02/08/2014 (NEPHROCAPS) 1 MG daily. capsule lisinopril Take 40 mg by mouth 0 02/08 (PRINIVIL,ZESTRIL) 40 daily MG tablet METOPROLOL SUCCINATE Take 100 mg by mouth 0 02/08/2014 PO daily documented as of this encounter Plan of Treatment Not on filedocumented as of this encounter Visit Diagnoses Not on filedocumented in this encounter Care Teams Warehouse Lead Relationship Specialty Start Date End Date Toña Jones MD PCP - General Nephrology 11/25/11 01/01/14 Ingrid Santana, RN Registered Nurse Transplant 02/10/12 10/01/15 documented as of this encounter
--- OUTSIDE RECORDS SUMMARY | 2022-05-19 11:43 | XMS_ITS | Encounter Summary ---
:1950 Author Organization [place] Address [facility] [place] [address] Care Team Providers Name Role Phone Toña [...] on filedocumented in this encounter Care Teams Boulevard Glassware Replacer Relationship Specialty Start Date End Date Toña Jones MD PCP - General Nephrology 11/25/11 01/01/14 Momo Forbes PCP - General Family Practice 01/02/14 [facility] [address] [place] [address] Ingrid Santana, RN Registered Nurse Transplant 02/10/12 10/01/15 documented as of this encounter
--- OUTSIDE RECORDS SUMMARY | 2022-05-19 11:43 | XMS_ITS | Encounter Summary ---
:1950 Author Organization [place] Address [address] [place] [address]. [place] [address] Care Team Providers Name Role Phone Toña Jones MD Primary Care Provider Ingrid Santana RN Unavailable Momo Forbes Primary Care Provider Encounter Details Date Type Department Care Team Description 02/18/2012 Abstract [facility] 2[facility], Clinic [address]A [place] [phone] Social History Tobacco Use Types Packs/Day [...] on filedocumented in this encounter Care Teams Flooring Machine Operator Relationship Specialty Start Date End Date Toña Jones MD PCP - General Nephrology 11/25/11 01/01/14 Momo Forbes PCP - General Family Practice 01/02/[address] [place] [address] Ingrid Santana RN Registered Nurse Transplant 02/10/12 10/01/15 documented as of this encounter
--- OUTSIDE RECORDS SUMMARY | 2022-05-19 11:43 | XMS_ITS | Encounter Summary ---
:1950 Author Organization [place] Address [address] [place] [address]. [place] [address] Care Team Providers Name Role Phone Toña [...] - HIM SCAN - 09/25/2012 8:26 AM OYSTER FISHERMAN ARCHIVE documented in this encounter Results LAB RESULT - HIM SCAN - ARCHIVE (09/25/2012 8:26 AM OYSTER FISHERMAN) Specimen (Source) Anatomical Location Collection Method / Collectio n Time Received Time / Laterality Volume Narrative This result has an attachment that is no t available. Marcela Cordero MD LAB - BLOOD ORDERABLES documented in this encounter Visit Diagnoses Not on filedocumented in this encounter Care Teams Certified Novell Engineer Relationship Specialty Start Date End Date Toña Jones MD PCP - General Nephrology 11/25/11 01/01/14 Momo Forbes PCP - General Family Practice 01/02/14 [facility] [address] [place] [address] Ingrdi Santana, RN Registered Nurse Transplant 02/10/12 10/01/15 documented as of this encounter
--- OUTSIDE RECORDS SUMMARY | 2022-05-19 11:43 | XMS_ITS | Encounter Summary ---
:1950 Author Organization [place] Address [address] [facility] [place] [address] Care Team Providers Name Role Phone Toña Jones MD Primary Care Provider Ingrid Santana RN Unavailable Encounter Details Date Type Department Care Team Description 02/10/2012 Orders Only [facility] Anita Joshi MD Diabetes mellitus, type 2 (H); Clinic Imaging [address] [facility] End stage renal disease (H) [place] [address] [place], [place] 1st Floor, Clinic [address] [place] [address] [phone] Social History Tobacco Use Types [...] disease documented in this encounter Care Teams Slip Box Changer Relationship Specialty Start Date End Date Toña Jones MD PCP - General Nephrology 11/25/11 01/01/14 Ingrid Santana RN Registered Nurse Transplant 02/10/12 10/01/15 documented as of this encounter
--- OUTSIDE RECORDS SUMMARY | 2022-05-19 11:43 | XMS_ITS | Encounter Summary ---
:1950 Author Organization [place] Address [address] [facility] [place] [address] Care Team Providers Name Role Phone Toña Jones MD Primary Care Provider Ingrid Santana RN Unavailable Encounter Details Date Type Department Care Team Description 02/08/2012 Results Only LABORATORY RESULTS Jeff [facility]hi MD [facility] [address] [place] [address] (Wo rk) Social History Tobacco [...] Phon e Number [facility] Immunology/Histocompatabil [place], [place] [address] ity [facility] [address] Building, Room 3-580 HISTOTRAC documented in this encounter Visit Diagnoses Not on filedocumented in this encounter Care Teams Clinical Practice Consultant Relationship Specialty Start Date End Date Toña Jones MD PCP - General Nephrology 11/25/11 01/01/14 Ingrid Santana RN Registered Nurse Transplant 02/10/12 10/01/15 documented as of this encounter
--- OUTSIDE RECORDS SUMMARY | 2022-05-19 11:43 | XMS_ITS | Encounter Summary ---
:1950 Author Organization [place] Address [address] [place] [address] Care Team Providers Name Role Phone Toña Jones MD Primary Care Provider Ingrid Santana RN Unavailable Encounter Details Date Type Department Care Team Description 07/03/2012 Results Only LABORATORY RESULTS Barbara Bradley MD [address] [place], [place] [address] Social History Tobacco Use [...] HLA Lukasz Class I Single Antigen (07/03/2012) [facility] gist Method Time Signature SA1 Test [...] / Volume Laterality 07/03/2012 07/05/2012 1:57 PM MACHINERY DISMANTLER Barbara Bradley MD LAB - IMMUNOLOGY ORDERABLES Performing Organization Address City/State/ZIP Code Phon e Number [facility] Immunology/Histocompatabil [place], [place] [address] [facility] Ctr [address] Building, Room 3-580 HISTOTRAC documented in this encounter Visit Diagnoses Not on filedocumented in this encounter Care Teams Pillar Worker Relationship Specialty Start Date End Date Toña Jones MD PCP - General Nephrology 11/25/11 01/01/14 Ingrid Santana RN Registered Nurse Transplant 02/10/12 10/01/15 documented as of this encounter
--- OUTSIDE RECORDS SUMMARY | 2022-05-19 11:43 | XMS_ITS | Encounter Summary ---
:1950 Author Organization [place] Address [address] [place] [address] Care Team Providers Name Role Phone Toña Jones MD Primary Care Provider Encounter Details Date Type Department Care Team Description 02/08/2012 Hospital Encounter [facility] Jesus Cardenas MD Patient Learning Bobby Angela Leon, BOGDAN [address] [facility] [address] [place], [place] [phone] [place] [address] Social History Tobacco Use Types Packs/Day Years [...] nightly as needed Per patient on hold amLODIPine (NORVASC) Take 10 mg by mouth 0 02/10/2012 10 MG tablet daily. B jgwpspp-E-fsuue acid Take 1 capsule by mouth 0 02/08/2014 (NEPHROCAPS) 1 MG daily. capsule carvedilol (COREG) Take 12.5 mg by mouth 2 0 02/10/2012 12.5 MG tablet times daily (with meals). furosemide (LASIX) 80 Take 80 mg by mouth 0 02/10/2012 MG tablet daily. LORazepam (ATIVAN) 1 Take 1 mg by mouth 0 02/10/2012 MG tablet every 6 hours as needed. documented as of this encounter Progress Notes [...] on filedocumented in this encounter Care Teams Generator Switchboard Operator Relationship Specialty Start Date End Date Toña Jones MD PCP - General Nephrology 11/25/11 01/01/14 documented as of this encounter
--- OUTSIDE RECORDS SUMMARY | 2022-05-19 11:43 | XMS_ITS | Encounter Summary ---
:1950 Author Organization [place] Address [address] [place] [address] Care Team Providers Name Role Phone Toña Jones MD Primary Care Provider Ingrid Santana RN Unavailable Encounter Details Date Type Department Care Team Description 01/17/2013 Results Only LABORATORY RESULTS Barbara Bradley MD [address] [place], [place] [address] Social History Tobacco Use [...] HLA Lukasz Class II Single Antigen (01/17/2013) [facility] Method Time Signature SA2 Test Single [...] Phon e Number [facility] Immunology/Histocompatabil [place], [place] [address] ity [facility] [address] Building, Room 3-580 HISTOTRAC documented in this encounter Visit Diagnoses Not on filedocumented in this encounter Care Teams Health Informatics Instructor Relationship Specialty Start Date End Date Toña Jones MD PCP - General Nephrology 11/25/11 01/01/14 Ingrid Santana RN Registered Nurse Transplant 02/10/12 10/01/15 documented as of this encounter
--- OUTSIDE RECORDS SUMMARY | 2022-05-19 11:43 | XMS_ITS | Encounter Summary ---
:1950 Author Organization [place] Address [facility] [place] [address] Care Team Providers Name Role Phone Toña Jones MD Primary Care Provider Ingrid Santana RN Unavailable Encounter Details Date Type Department Care Team Description 02/28/2013 Orders Only [facility] Molly Sanderson Organ transplant [address] [facility] candidate (Primary Dx) [place] [phone] Social History Tobacco Use Types Packs/Day Years [...] status documented in this encounter Care Teams Asbestos Abatement Worker Relationship Specialty Start Date End Date Toña Jones MD PCP - General Nephrology 11/25/11 01/01/14 Ingrid Santana RN Registered Nurse Transplant 02/10/12 10/01/15 documented as of this encounter
--- OUTSIDE RECORDS SUMMARY | 2022-05-19 11:43 | XMS_ITS | Encounter Summary ---
:1950 Author Organization [place] Address [address] [place] [address] Care Team Providers Name Role Phone Toña Jones MD Primary Care Provider Ingrid Santana RN Unavailable Encounter Details Date Type Department Care Team Description 02/08/2012 Results Only LABORATORY RESULTS Jeff Joshi MD [facility] [address] [place] [address] (Wo rk) Social History Tobacco [...] I Single Antigen (02/08/2012 7:07 AM CDT) [facility] Method Time Signature SA1 Test Single [...] Phon e Number [facility] Immunology/Histocompatabil [place], [place] [address] ity [facility] [address] [facility] [address] Building, Room 3-580 HISTOTRAC documented in this encounter Visit Diagnoses Not on filedocumented in this encounter Care Teams Oil Burner Journeyman Relationship Specialty Start Date End Date Toña Jones MD PCP - General Nephrology 11/25/11 01/01/14 Ingrid Santana, RN Registered Nurse Transplant 02/10/12 10/01/15 documented as of this encounter
--- OUTSIDE RECORDS SUMMARY | 2022-05-19 11:43 | XMS_ITS | Encounter Summary ---
:1950 Author Organization [place] Address [facility] [place] [address] Care Team Providers Name Role Phone Toña [...] on filedocumented in this encounter Care Teams Escrow Secretary Relationship Specialty Start Date End Date Toña Jones MD PCP - General Nephrology 11/25/11 01/01/14 Momo Forbes PCP - General Family Practice 01/02/14 [facility] [address] [place] [address] Ingrid Santana, RN Registered Nurse Transplant 02/10/12 10/01/15 documented as of this encounter
--- OUTSIDE RECORDS SUMMARY | 2022-05-19 11:43 | XMS_ITS | Encounter Summary ---
:1950 Author Organization [place] Address [address] [place] [address] Care Team Providers Name Role Phone Toña Jones MD Primary Care Provider Ingrid Santana RN Unavailable Encounter Details Date Type Department Care Team Description 10/11/2012 Results Only LABORATORY RESULTS Barbara Bradley MD [address] [place], [place] [address] Social History Tobacco Use [...] HLA Lukasz Class I Single Antigen (10/11/2012) [facility] gist Method Time Signature SA1 Test [...] / Volume Laterality 10/11/2012 10/12/2012 1:03 PM PRECISION FARMING COORDINATOR Barbara Bradley MD LAB - IMMUNOLOGY ORDERABLES Performing Organization Address City/State/ZIP Code Phon e Number [facility] Immunology/Histocompatabil [place], [place] [address] ity [facility] [address] Building, Room 3-580 HISTOTRAC documented in this encounter Visit Diagnoses Not on filedocumented in this encounter Care Teams Supervisor Extruding Department Relationship Specialty Start Date End Date Toña Jones MD PCP - General Nephrology 11/25/11 01/01/14 Ingrid Santana RN Registered Nurse Transplant 02/10/12 10/01/15 documented as of this encounter
--- OUTSIDE RECORDS SUMMARY | 2022-05-19 11:43 | XMS_ITS | Encounter Summary ---
:1950 Author Organization [place] Address [facility] [place] [address] Care Team Providers Name Role Phone Toña [...] filedocumented in this encounter Care Teams Interior Decorator Painting Relationship Specialty Start Date End Date Toña Jones MD PCP - General Nephrology 11/25/11 01/01/14 Momo Forbes PCP - General Family Practice 01/02/14 [facility] [address] [place] [id number] Ingrid Santana, RN Registered Nurse Transplant 02/10/12 10/01/15 documented as of this encounter
--- OUTSIDE RECORDS SUMMARY | 2022-05-19 11:43 | XMS_ITS | Encounter Summary ---
:1950 Author Organization [place] Address [facility] [place] [address] Care Team Providers Name Role Phone Toña Jones MD Primary Care Provider Ingrid Santana RN Unavailable Reason for Visit (Routine) - Closed Specialty Diagnoses / Procedures Referred By Contact Refer red To Contact Cardiology Diagnoses NM STRESS LEXISCAN Procedure Notes: UNSPECIFIED ESSENTIAL HYPERTENSION,PREOPERATIVE EXAMINATION, UNSPECIFIED, Zz [facility] Electrocard Procedures RADIOLOGY [address] [place] [address] Referral ID Status Reason Start Date Expiration Date Visits Requ ested Visits Authorized [id number] Closed 02/11/2012 02/10/2013 1 1 Encounter Details Date Type Department Care Team Description 02/15/2012 Hospital Encounter [facility] ELECTROCARD Bradley, Miner [address] [facility] [place] [address] [address] [place], [place] [address] Social History Tobacco Use [...] as needed Per patient on hold B hregrym-M-mrbpd acid Take 1 capsule by mouth 0 02/08/2014 (NEPHROCAPS) 1 MG daily. capsule lisinopril Take 40 mg by mouth 0 02/08 (PRINIVIL,ZESTRIL) 40 daily MG tablet METOPROLOL SUCCINATE Take 100 mg by mouth 0 02/08/2014 PO daily documented as of this encounter Progress Notes [...] Test documented in this encounter Care Teams Pickle Cutter Relationship Specialty Start Date End Date Toña Jones MD PCP - General Nephrology 11/25/11 01/01/14 Ingrid Santana RN Registered Nurse Transplant 02/10/12 10/01/15 documented as of this encounter
--- OUTSIDE RECORDS SUMMARY | 2022-05-19 11:43 | XMS_ITS | Encounter Summary ---
:1950 Author Organization [employer] Address [facility] [address] Care Team Providers Name Role Phone Toña Jones MD Primary Care Provider Ingrid Santana RN Unavailable Reason for Visit Reason Comments Heart Problem Consult prior to kidney proctor splant, needs EKG please. Encounter Details Date Type Department Care Team Description 02/10/2012 Office Visit University Barbara Bradley Unspecified es sential hypertension; [facility] Chance Licona Pre-operative clearance Heart [address] [place] [address] [facility] [phone] 4th Floor, Clinic 4B (Work) [address] [address] Social History Tobacco Use [...] Stay Well and Call Maribel Nicole RN [phone] with any questions or concerns. You are scheduled for an Adenosine Stress Test 02/15/2012: Please check into the [facility] Waiting Room at 12:15pm for this [...] and you need to reschedule, please call [phone]. January 2012Tuesday 1 2 3 4 5 6 7 8 9 10 11 12 13 14 15 16 17 18 19 [facility] NEW 6:30 AM (30 min.) Evaluation, [facility] FULL PULMONARY FUNCTION 8:00 AM (60 min.) 2, [facility] Pulmonary Function Laboratory RADIOLOGY 8:05 AM (10 min.) Uicxr2 [facility] Diagnostic Imaging [facility] PREP KIDNEY/PANCREAS TX 9:00 AM (120 min.) Angela Lopez, [facility], [employer], [facility] TRANSPLANT CLASS KIDNEY 9:00 AM (90 min.) Class, [facility] Transplant [place] Transplant [facility] CUPOLA TAPPER 11:00 AM (30 min.) Coordinator, [facility] Care [place] Transplant [facility] PRE-TX KIDNEY EVAL 11:00 AM (30 min.) Donya Thomas MD Transplant Surgery LAB 11:30 AM (15 min.) [place], Op Lab [facility], Lab RADIOLOGY 1:30 PM (55 min.) Uecvc1 [facility], Echocardiography 20 21 [facility] RETURN 7:00 AM (15 min.) Evaluation, [facility] RADIOLOGY 7:00 AM (60 min.) Uicusr2 [facility] Diagnostic Imaging CONSULT HOD 8:00 AM (60 min.) Martina Mcneill RD [facility], Nutrition Services [facility] TX SOCIAL WORK 9:00 AM (60 min.) 2, [facility] Consult Room [facility] PRE-TX KIDNEY EVAL 10:00 AM (60 min.) Joseph Quintana MD Nephrology [facility] PANCREAS-KIDNEY TX W/U 11:30 AM (30 min.) Barbara Bradley MD [facility] Physicians Heart 22 23 24 25 26 RADIOLOGY 12:30 PM (15 min.) Uninj [facility], Nuclear Medicine RADIOLOGY 1:15 PM (20 min.) Unr1 [facility], Nuclear Medicine RADIOLOGY 1:40 PM (30 min.) Uekgnms ELECTROCARDIOLOGY RADIOLOGY 3:10 PM (20 min.) Unr1 [facility], Nuclear Medicine 27 28 29 20 [...] On HD since Aug 2011. No past [place], stress tests or coronary angiogorams. No chest [...] 1 tablet by mouth daily. ??? 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 Perez MD molded goods embossing press operator. Divisions of Cardiology [facility] Patient Care Team: Toña Jones MD as PCP - General (Nephrology) Ingrid Santana RN as Registered Nurse (Transplant) DONYA THOMAS documented in this encounter Plan of Treatment Not on filedocumented as of this encounter Visit Diagnoses Diagnosis Unspecified essential hypertension Pre-operative clearance Preoperative examination, unspecified documented in this encounter Care Teams Dry Cleaner Relationship Specialty Start Date End Date Toña Jones MD PCP - General Nephrology 11/25/11 01/01/14 Ingrid Santana RN Registered Nurse Transplant 02/10/12 10/01/15 documented as of this encounter
--- OUTSIDE RECORDS SUMMARY | 2022-05-19 11:43 | XMS_ITS | Encounter Summary ---
:1950 Author Organization [place] Address [address] [facility] [place] [address] Care Team Providers Name Role Phone Toña Jones MD Primary Care Provider Ingrid Santana RN Unavailable Encounter Details Date Type Department Care Team Description 02/10/2012 Hospital Encounter [facility] Jesus Cardenas MD Nutrition Services Martina Harley, RD [address] [facility] [address] [place] [address] 420 [facility] Joseph Quintana MD 717 [facility] EMERGENCY DEPARTMENT [address] [facility] [address] [place] [address] 84 [place] [address] Social History Tobacco Use Types Packs/Day Years [...] as needed Per patient on hold B cgufhqx-K-xsbbw acid Take 1 capsule by mouth 0 02/08/2014 (NEPHROCAPS) 1 MG daily. capsule lisinopril Take 40 mg by mouth 0 02/08 (PRINIVIL,ZESTRIL) 40 daily MG tablet METOPROLOL SUCCINATE Take 100 mg by mouth 0 02/08/2014 PO daily documented as of this encounter Progress Notes Martina Mcneill, RD - 02/10/2012 8:47 AM CDT [facility] Medical Nutrition Therapy Visit Type: [...] on filedocumented in this encounter Care Teams Pulp Beater Relationship Specialty Start Date End Date Toña Jones MD PCP - General Nephrology 11/25/11 01/01/14 Ingrid Santana RN Registered Nurse Transplant 02/10/12 10/01/15 documented as of this encounter
--- OUTSIDE RECORDS SUMMARY | 2022-05-19 11:43 | XMS_ITS | Encounter Summary ---
:1950 Author Organization [place] Address [address] [place] [address] Care Team Providers Name Role Phone Toña Jones MD Primary Care Provider Reason for Visit (Routine) - Closed Specialty Diagnoses / Procedures Referred By Contact Refer red To Contact Cardiology Diagnoses ECHO CLINIC COMPLETE ADULT Procedure Notes: DIABETES MELLITUS, TYPE 2,END STAGE RENAL DISEASE,Transplant eval,Performing Location?->[facility] Echocardiography Procedures RADIOLOGY [address] [place] [address] Phone: Referral ID Status Reason Start Date Expiration Date Visits Requ ested Visits Authorized [id number] Closed 01/21/2012 01/20/2013 1 1 Encounter Details Date Type Department Care Team Description 02/08/2012 Hospital Encounter [facility], [place], Jeff Joshi MD [address] [facility] [address] [place] [address] Diabetes mellitus, type 2 (H); Echocardiography Rajat German MD [address] [facility] [address] [facility] [address] [place] [address] End stage renal disease (H) [address] [place] [address] Social History Tobacco Use Types [...] 0 02/10/2012 10 MG tablet daily. B ogxcnbo-H-zxoki acid Take 1 capsule by mouth 0 [...] as needed. documented as of this encounter Plan of [...] - Clinic (PWB) (02/08/2012 1:13 PM CDT) [facility] Method Time Signature XCELERA RADIOLOGY Interpretation Summary [...] disease documented in this encounter Care Teams Boom Worker Relationship Specialty Start Date End Date Toña Jones MD PCP - General Nephrology 11/25/11 01/01/14 documented as of this encounter
--- OUTSIDE RECORDS SUMMARY | 2022-05-19 11:43 | XMS_ITS | Encounter Summary ---
:1950 Author Organization [place] Address [address] [place] [address] Care Team Providers Name Role Phone Toña Jones MD Primary Care Provider Ingrid Santana RN Unavailable Encounter Details Date Type Department Care Team Description 04/13/2012 Results Only LABORATORY RESULTS Mingo Dangelo MD [address] [facility] [address] [place] [address] (Wo rk) Social History Tobacco [...] HLA Lukasz Class II Single Antigen (04/13/2012) [facility] Method Time Signature SA2 Test Single [...] Phon e Number UU HLA LABORATORY Immunology/Histocompatabil [place], [place] [address] ity [facility] [address] Building, Room 3-580 HISTOTRAC documented in this encounter Visit Diagnoses Not on filedocumented in this encounter Care Teams Pet Stylist Relationship Specialty Start Date End Date Toña Jones MD PCP - General Nephrology 11/25/11 01/01/14 Ingrid Santana RN Registered Nurse Transplant 02/10/12 10/01/15 documented as of this encounter
--- OUTSIDE RECORDS SUMMARY | 2022-05-19 11:43 | XMS_ITS | Encounter Summary ---
:1950 Author Organization [place] Address [address] [place] [address] Care Team Providers Name Role Phone Toña Jones MD Primary Care Provider Ingrid Santana RN Unavailable Encounter Details Date Type Department Care Team Description 02/08/2012 Orders Only [facility] Jesus Cardenas Di abetes mellitus, type 2 (H); [facility] Gordo oneal MD End stage renal disease (H); [address] [place] [address] Social History Tobacco Use Types Packs/Day Years [...] Results ABO type (02/08/2012 1:52 PM CDT) [facility] [employer] Method Time Signature ABO A [facility] RH(D) Pos [facility] Specimen 02/11/2012 [facility] Specimen Anatomical Collection Method Collection Time Receive d Time (Source) Location / / Volume Laterality Blood specimen 02/08/2012 1:52 PM 012 1:54 (specimen) CDT PM CDT Chucho Joshi MD LAB - BLOOD BANK TEST ORDER Performing Organization Address City/[facility]/ZIP Code Phon e Number [address] LABS EKG 12-lead, tracing only (02/08/2012 7:30 AM CDT) [facility] [employer] Method Time Signature Ventricular Rate 60 BPM RADIOLOGY RESULTS Atrial Rate 60 BPM RADIOLOGY RESULTS NM Interval 186 ms RADIOLOGY RESULTS QRS Duration 104 ms RADIOLOGY RESULTS QT 440 ms RADIOLOGY RESULTS QTc 440 ms RADIOLOGY RESULTS P [place] 36 degrees RADIOLOGY RESULTS R AXIS 0 degrees RADIOLOGY RESULTS T [place] 36 degrees RADIOLOGY RESULTS Interpretation Sinus rhythm [...] DEFINED documented in this encounter Care Teams Pasteurizer Relationship Specialty Start Date End Date Toña Jones MD PCP - General Nephrology 11/25/11 01/01/14 Ingrid Santana, RN Registered Nurse Transplant 02/10/12 10/01/15 documented as of this encounter
--- OUTSIDE RECORDS SUMMARY | 2022-05-19 11:43 | XMS_ITS | Encounter Summary ---
:1950 Author Organization [place] Address [address] [place] [address] Care Team Providers Name Role Phone Toña Jones MD Primary Care Provider Ingrid Santana RN Unavailable Encounter Details Date Type Department Care Team Description 02/15/2012 Hospital Encounter [facility] Barbara Bradley [facility]star ecified essential hypertension; [facility] Imaging MD Monae Pre-operative clearance [address] [place] [address] Social History Tobacco Use [...] as needed Per patient on hold B fgjogsb-L-frryl acid Take 1 capsule by mouth 0 [...] unspecified documented in this encounter Care Teams Ranch Cook Relationship Specialty Start Date End Date Toña Jones MD PCP - General Nephrology 11/25/11 01/01/14 Ingrid Santana, BOGDAN Registered Nurse Transplant 02/10/12 10/01/15 documented as of this encounter
--- OUTSIDE RECORDS SUMMARY | 2022-05-19 11:44 | XMS_ITS | Encounter Summary ---
:1950 Author Organization [place] Address [facility] [address] Care Team Providers Name Role Phone Toña [...] CARDIAC - HIM SCAN 08/30/2011 8:28 AM MILK DRIVER - ARCHIVE ECHO CARDIAC - HIM SCAN 08/30/2011 8:27 AM MILK DRIVER - ARCHIVE documented in this encounter Results EKG CARDIAC - HIM SCAN - ARCHIVE (08/30/2011 8:28 AM MILK DRIVER) Specimen (Source) Anatomical Location Collection Method / Collectio n Time Received Time / Laterality Volume Narrative This result has an attachment that is no t available. Marcela Provider ECG ORDERABLES ECHO CARDIAC - HIM SCAN - ARCHIVE (08/30/2011 8:27 AM MILK DRIVER) Specimen (Source) Anatomical Location Collection Method / Collectio n Time Received Time / Laterality Volume Narrative This result has an attachment that is no t available. Marcela Provider CV ECHO ORDERABLES documented in this encounter Visit Diagnoses Not on filedocumented in this encounter Care Teams Security Incident Response Engineer Relationship Specialty Start Date End Date Toña Jones MD PCP - General Nephrology 11/25/11 01/01/14 Momo Forbes PCP - General Family Practice 01/02/14 [facility] [address] [place] [address] Ingrid Santana, RN Registered Nurse Transplant 02/10/12 10/01/15 documented as of this encounter
--- OUTSIDE RECORDS SUMMARY | 2022-05-19 11:44 | XMS_ITS | Encounter Summary ---
:1950 Author Organization [place] Address [address] [place] [address]. [place] [address] Care Team Providers Name Role Phone Toña [...] General Family Practice 01/02/14 [facility] [address] [place] [address] Ingrid Santana, RN Registered Nurse Transplant 02/10/12 10/01/15 documented as of this encounter
--- OUTSIDE RECORDS SUMMARY | 2022-05-19 11:44 | XMS_ITS | Encounter Summary ---
:1950 Author Organization [place] Address [facility] [place] [address] Care Team Providers Name Role Phone Toña Jones MD Primary Care Provider Ingrid Santana RN Unavailable Encounter Details Date Type Department Care Team Description 12/07/2011 Orders Only Nephrology Chucho Joshi MD Dialysis patient (H) 2nd Floor, Clinic 2A [address] [place] (Primary Dx) Tommy Ruiz[address] [place] [address] [place], [place] [phone] (Wo rk) [address] [phone] Social History Tobacco Use Types Packs/Day Years Used Date Never Assessed Sex Assigned at Date Recorded Not on file documented as of this encounter Plan of Treatment Not on filedocumented as of this encounter Visit Diagnoses Diagnosis Dialysis patient (H) - Primary Renal dialysis status documented in this encounter Care Teams Hazardous Waste Material Technician Relationship Specialty Start Date End Date Toña Jones MD PCP - General Nephrology 11/25/11 01/01/14 Ingrid Santana, RN Registered Nurse Transplant 02/10/12 10/01/15 documented as of this encounter
--- OUTSIDE RECORDS SUMMARY | 2022-05-19 11:44 | XMS_ITS | Encounter Summary ---
:1950 Author Organization [place] Address [address] [place] [address]. [place] [address] Care Team Providers Name Role Phone Toña [...] on filedocumented in this encounter Care Teams Gear Straightener Relationship Specialty Start Date End Date Toña Jones MD PCP - General Nephrology 11/25/11 01/01/14 Momo Forbes PCP - General Family Practice 01/02/14 [facility] [address] [place] [address] Ingrid Santana, RN Registered Nurse Transplant 02/10/12 10/01/15 documented as of this encounter
--- OUTSIDE RECORDS SUMMARY | 2022-05-19 11:44 | XMS_ITS | Encounter Summary ---
:1950 Author Organization [place] Address [facility] [place] [address] Care Team Providers Name Role Phone Toña [...] - HIM SCAN - 11/02/2005 8:27 AM TAILERCPA ARCHIVE LAB RESULT - HIM SCAN - 11/02/2005 8:25 AM TAILERCPA ARCHIVE documented in this encounter Results LAB RESULT - HIM SCAN - ARCHIVE (11/02/2005 8:27 AM TAILERCPA) Specimen (Source) Anatomical Location Collection Method / Collectio n Time Received Time / Laterality Volume Narrative This result has an attachment that is no t available. Marcela Provider LAB - BLOOD ORDERABLES LAB RESULT - HIM SCAN - ARCHIVE (11/02/2005 8:25 AM TAILERCPA) Specimen (Source) Anatomical Location Collection Method / Collectio n Time Received Time / Laterality Volume Narrative This result has an attachment that is no t available. Marcela Provider LAB - BLOOD ORDERABLES documented in this encounter Visit Diagnoses Not on filedocumented in this encounter Care Teams Logging Superintendent Relationship Specialty Start Date End Date Toña Jones MD PCP - General Nephrology 11/25/11 01/01/14 Momo Forbes PCP - General Family Practice 01/02/14 [facility] [address] [place] [address] Ingrid Santana, RN Registered Nurse Transplant 02/10/12 10/01/15 documented as of this encounter
--- OUTSIDE RECORDS SUMMARY | 2022-05-19 11:44 | XMS_ITS | Encounter Summary ---
:1950 Author Organization [place] Address [address] [place] [address]. [place] [address] Care Team Providers Name Role Phone Toña [...] filedocumented in this encounter Care Teams Press Bucker Relationship Specialty Start Date End Date Toña Jones MD PCP - General Nephrology 11/25/11 01/01/14 Momo Forbes PCP - General Family Practice 01/02/[address] [address] Ingrid Santnaa, RN Registered Nurse Transplant 02/10/12 10/01/15 documented as of this encounter
--- OUTSIDE RECORDS SUMMARY | 2022-05-19 11:44 | XMS_ITS | Encounter Summary ---
:1950 Author Organization [place] Address [address] [place] [address]. [place] [address] Care Team Providers Name Role Phone Toña [...] on filedocumented in this encounter Care Teams Nca Certified Concierge Relationship Specialty Start Date End Date Toña Jones MD PCP - General Nephrology 11/25/11 01/01/14 Momo Forbes PCP - General Family Practice 01/02/14 [facility] [address] [place] [address] Ingrid Santana, RN Registered Nurse Transplant 02/10/12 10/01/15 documented as of this encounter
--- OUTSIDE RECORDS SUMMARY | 2022-05-19 11:44 | XMS_ITS | Encounter Summary ---
:1950 Author Organization [place] Address [address] [place] [address]. [place] [address] Care Team Providers Name Role Phone Toña [...] on filedocumented in this encounter Care Teams Exhaust And Muffler Fitter Relationship Specialty Start Date End Date Toña Jones MD PCP - General Nephrology 11/25/11 01/01/14 Momo Forbes PCP - General Family Practice 01/02/14 [facility] [address] [place] [address] Ingrid Santana, RN Registered Nurse Transplant 02/10/12 10/01/15 documented as of this encounter
--- OUTSIDE RECORDS SUMMARY | 2022-05-19 11:44 | XMS_ITS | Encounter Summary ---
:1950 Author Organization [place] Address [address] [place] [address]. [place] [address] Care Team Providers Name Role Phone Toña Jones MD Primary Care Provider Ingrid Santana RN Unavailable Momo Forbes Primary Care Provider Encounter Details Date Type Department Care Team Description 01/28/1998 Hospital - [facility] Cesar Tejeda MEDIC [facility] [address] [place], [place] [address] (Wo rk) Social History Tobacco Use Types Packs/Day Years Used Date Never Assessed Sex Assigned at Date Recorded Not on file documented as of this encounter Plan of Treatment Not on filedocumented as of this encounter Visit Diagnoses Not on filedocumented in this encounter Care Teams Career Professional Relationship Specialty Start Date End Date Toña Jones MD PCP - General Nephrology 11/25/11 01/01/14 Momo Forbes PCP - General Family Practice 01/02/[address] [address] Ingrid Santana, RN Registered Nurse Transplant 02/10/12 10/01/15 documented as of this encounter
--- OUTSIDE RECORDS SUMMARY | 2022-05-19 11:44 | XMS_ITS | Encounter Summary ---
:1950 Author Organization [place] Address [address] [place] [address]. [place] [address] Care Team Providers Name Role Phone Toña [...] on filedocumented in this encounter Care Teams Interventional Radiology Technologist Relationship Specialty Start Date End Date Toña Jones MD PCP - General Nephrology 11/25/11 01/01/14 Momo Forbes PCP - General Family Practice 01/02/14 [facility] [address] [place] [address] Inrgid Santana, RN Registered Nurse Transplant 02/10/12 10/01/15 documented as of this encounter
--- OUTSIDE RECORDS SUMMARY | 2022-05-19 11:44 | XMS_ITS | Encounter Summary ---
:1950 Author Organization [place] Address [address] [place] [address]. [place] [address] Care Team Providers Name Role Phone Toña [...] filedocumented in this encounter Care Teams Management Supervisor Relationship Specialty Start Date End Date Toña Jones MD PCP - General Nephrology 11/25/11 01/01/14 Momo Forbes PCP - General Family Practice 01/02/[address] [address] Ingrid Santana, RN Registered Nurse Transplant 02/10/12 10/01/15 documented as of this encounter
--- OUTSIDE RECORDS SUMMARY | 2022-05-19 11:44 | XMS_ITS | Encounter Summary ---
:1950 Author Organization [place] Address [facility] [place] [address] Care Team Providers Name Role Phone Toña [...] on filedocumented in this encounter Care Teams Detailer School Photographs Relationship Specialty Start Date End Date Toña Jones MD PCP - General Nephrology 11/25/11 01/01/14 Momo Forbes PCP - General Family Practice 01/02/14 [facility] [address] [place] [address] Ingrid Santana, RN Registered Nurse Transplant 02/10/12 10/01/15 documented as of this encounter
--- OUTSIDE RECORDS SUMMARY | 2022-05-19 11:44 | XMS_ITS | Encounter Summary ---
:1950 Author Organization [place] Address [address] [facility] [place] [place] [address] Care Team Providers Name Role Phone Toña [...] filedocumented in this encounter Care Teams Research Test Engine Operator Relationship Specialty Start Date End Date Toña Jones MD PCP - General Nephrology 11/25/11 01/01/14 Momo Forbes PCP - General Family Practice 01/02/14 [facility] [address] [place] [address] Ingrid Santana, RN Registered Nurse Transplant 02/10/12 10/01/15 documented as of this encounter
--- OUTSIDE RECORDS SUMMARY | 2022-05-19 11:44 | XMS_ITS | Encounter Summary ---
:1950 Author Organization [place] Address [facility] [place] [address] Care Team Providers Name Role Phone Toña [...] on filedocumented in this encounter Care Teams Card Grinder Relationship Specialty Start Date End Date Toña Jones MD PCP - General Nephrology 11/25/11 01/01/14 Momo Fobres PCP - General Family Practice 01/02/14 [facility] [address] [place] [address] Ingrid Santana, RN Registered Nurse Transplant 02/10/12 10/01/15 documented as of this encounter
--- OUTSIDE RECORDS SUMMARY | 2022-05-19 11:44 | XMS_ITS | Encounter Summary ---
:1950 Author Organization [place] Address [facility] [address] Care Team Providers Name Role Phone Toña Jones MD Primary Care Provider Blayne Santana RN Unavailable Reason for Visit Reason Comments Transplant Evaluation Encounter Details Date Type Department Care Team Description 02/08/2012 Office Visit Transplant Surgery Jesus Cardenas, DM (di abetes mellitus), type 2 (H); Clinic End stage renal disease (H) 2nd Floor, Clinic [address] [id number] Social History Tobacco Use Types Packs/Day Years [...] from the original note were not included. [facility] Consult Note Date of : 1950, [...] Take 1 tablet by mouth daily. B xsxlytd-Y-lifwg acid (NEPHROCAPS) 1 MG capsule Take 1 [...] Test 02/08/12 0725 INR 1.11 F2MAR -- [id number] -- Lipid Profile: Cholesterol Date Value Range [...] 09, 2012 3:21 PM Pre Abdominal Organ Vitamin Manager Evaluation Note: present: Dr. Jesus Cardenas Attendees: self Type of transplant: kidney Required Topic(s) Discussed: Evaluation notification document, SRTR data, Multiple wait list brochure, SOIL FERTILITY EXTENSION SPECIALIST, Evaluation/approval process, Selection committee process, Wait list [...] spent with patient: 15 minutes -- Nurse Vitamin Manager Pager [phone] BLAYNE SANTANA -- Nurse Vitamin Manager Pager [phone] >> Lena Sánchez RN Tue Feb 08, [...] disease documented in this encounter Care Teams Restrooms Or Lounges Maid Relationship Specialty Start Date End Date Toña Jones MD PCP - General Nephrology 11/25/11 01/01/14 Blayne Santana, RN Registered Nurse Transplant 02/10/12 10/01/15 documented as of this encounter
--- OUTSIDE RECORDS SUMMARY | 2022-05-19 11:44 | XMS_ITS | Encounter Summary ---
:1950 Author Organization [place] Address [address] [place] [address] Care Team Providers Name Role Phone Toña [...] filedocumented in this encounter Care Teams Corrugator Operator Helper Relationship Specialty Start Date End Date Toña Jones MD PCP - General Nephrology 11/25/11 01/01/14 Momo Forbes PCP - General Family Practice 01/02/14 [facility] [address] [place] [address] Ingrid Santana, RN Registered Nurse Transplant 02/10/12 10/01/15 documented as of this encounter
--- OUTSIDE RECORDS SUMMARY | 2022-05-19 11:44 | XMS_ITS | Encounter Summary ---
:1950 Author Organization [place] Address [address] [place] [address]. [place] [address] Care Team Providers Name Role Phone Toña [...] on filedocumented in this encounter Care Teams Lavatory Attendant Relationship Specialty Start Date End Date Toña Jones MD PCP - General Nephrology 11/25/11 01/01/14 Momo Forbes PCP - General Family Practice 01/02/14 [facility] [address] [place] [address] Ingrid Santana, RN Registered Nurse Transplant 02/10/12 10/01/15 documented as of this encounter
--- OUTSIDE RECORDS SUMMARY | 2022-05-19 11:44 | XMS_ITS | Encounter Summary ---
:1950 Author Organization [place] Address [facility] [place] [address] Care Team Providers Name Role Phone Toña [...] on filedocumented in this encounter Care Teams Ostomy Nurse Relationship Specialty Start Date End Date Toña Jones MD PCP - General Nephrology 11/25/11 01/01/14 Momo Forbes PCP - General Family Practice 01/02/14 [facility] [address] [place] [address] Ingrid Santana, RN Registered Nurse Transplant 02/10/12 10/01/15 documented as of this encounter
--- OUTSIDE RECORDS SUMMARY | 2022-05-19 11:44 | XMS_ITS | Encounter Summary ---
:1950 Author Organization [place] Address [facility] 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 LABS M Tuberculosis 0.01 IU/mL [facility] [...] 012 7:31 (specimen) CDT AM CDT Darian Josih MD LAB - BLOOD ORDERABLES Performing Organization Address City/State/ZIP Code Phon e Number [facility] [address] [place], [place] [phone] [place] [address] [facility] LABS Antibody titer red cell (02/08/2012 7:26 AM CDT) [facility] Method Time Signature Antibody Titer Anti B [facility] titer IgM: [place] 4 Ig CAMPUS LABS Specimen Anatomical Collection Method Collection Time Receive d Time (Source) Location / / Volume Laterality Blood specimen 02/08/2012 7:26 AM 012 7:31 (specimen) CDT AM CDT Darian Joshi MD LAB - BLOOD BANK TEST ORDER Performing Organization Address City/State/ZIP Code Phon e Number [facility] [address] LABS Prostate spec antigen screen (02/08/2012 7:25 AM CDT) P athologist Signature PSA 0.44 0 - 4 ug/L [facility] LABS Comment: PSA results are about [...] Phon e Number [facility] [address] LABS Hemoglobin A1c (02/08/2012 7:25 AM CDT) P athologist Signature Hemoglobin A1C 5.3 4.3 - 6.0 [facility] % [place] LABS Specimen Anatomical Collection Method Collection Time Receive d Time (Source) Location / / Volume Laterality Blood specimen 02/08/2012 7:25 AM 012 7:30 (specimen) CDT AM CDT Darian Joshi MD LAB - BLOOD ORDERABLES Performing Organization Address City/State/ZIP Code Phon e Number [facility] [address] [place], [place] [phone] [place] [address] LABS C-peptide (02/08/2012 7:25 AM CDT) athologist Signature C Peptide 5.3 0.9 - 6.9 [facility] ng/mL [place] LABS Specimen Anatomical Collection Method Collection Time Receive d Time (Source) Location / / Volume Laterality Blood specimen 02/08/2012 7:25 AM 012 7:30 (specimen) CDT AM CDT Darian Joshi MD LAB - BLOOD ORDERABLES Performing Organization Address City/State/ZIP Code Phon e Number [address] LABS Cardiolipin antibody IgG and IgM (02/08/2012 7:25 AM CDT) [facility] Method Time Signature Cardiolipin IgG <15.0 0 - 15.0 [facility] Shaye Interpretation: ??Negative GPL [facility] LABS Cardiolipin IgM <12.5 0 - 12.5 [facility] Shaye Interpretation: ??Negative MPL [facility] LABS Specimen Anatomical Collection Method Collection Time Receive d Time (Source) Location / / Volume Laterality Blood specimen 02/08/2012 7:25 AM 012 7:30 (specimen) CDT AM CDT Darian Joshi MD LAB - BLOOD ORDERABLES Performing Organization Address City/State/ZIP Code Phon e Number [phone] [place] [address] LABS (ABNORMAL) Comprehensive metabolic panel (02/08/2012 7:25 AM CDT) [facility] Method Time Signature Sodium 143 133 - 144 [facility] mmol/L [facility] LABS Potassium 4.4 3.4 - 5.3 [facility] mmol/L [facility] LABS Chloride 106 94 - 109 [facility] mmol/L [facility] LABS Carbon Dioxide 24 20 - 32 [facility] mmol/L [facility] LABS Anion Gap 13 6 - 17 [facility] mmol/L [facility] LABS Glucose 126 (H) 60 - 99 [facility] mg/dL [facility] LABS Urea Nitrogen 32 (H) 7 - 30 [facility] mg/dL [facility] LABS Creatinine 5.46 (H) 0.66 - [facility] 1.25 [place] mg/dL CAMPUS LABS GFR Estimate 11 (L) >60 [facility] mL/min/1. [address] LABS GFR Estimate If 13 (L) >60 [facility] Black mL/min/1. [address] LABS Calcium 8.5 8.5 - [facility] 10.4 UNIVERSITY mg/dL [place] LABS Bilirubin Total 0.8 0.2 - 1.3 [facility] mg/dL [facility] LABS Albumin 3.8 3.3 - 4.9 [facility] g/dL [facility] LABS Protein Total 6.8 6.8 - 8.8 [facility] g/dL [facility] LABS Alkaline 92 40 - 150 [facility] Phosphatase U/L [facility] LAB[facility] ALT 13 0 - 70 [facility] U/L [facility] LABS AST 18 0 - 45 [facility] U/L [facility] LABS Specimen Anatomical Collection Method Collection Time Receive d Time (Source) Location / / Volume Laterality Blood specimen 02/08/2012 7:25 AM 012 7:30 (specimen) CDT AM CDT Darian Joshi MD LAB - BLOOD ORDERABLES Performing Organization Address City/[facility]/ZIP Code Phon e Number [facility] [address] LABS Lipid Profile (02/08/2012 7:25 AM CDT) P athologist Signature Cholesterol 134 0 - 200 [facility] mg/dL [place] LABS Comment: LDL Cholesterol is the primary guide to therapy. The NCEP recommends further evaluation of: patients with cholesterol greater than 200 mg/dL if additional risk facto rs are present, cholesterol greater than 240 mg/dL, triglycerides greater than 1 50 mg/dL, or HDL less than 40 mg/dL. Triglycerides 74 0 - 150 mg/dL [facility] LABS HDL Cholesterol 42 40 - 110 mg/dL [facility] LABS LDL Cholesterol Calculated 77 0 - 129 mg/dL [facility] LABS Comment: LDL Cholesterol is the primary guide to therapy: LDL-cholesterol goal in high risk patients is <100 mg/dL and in very high risk patients is <70 mg/dL. VLDL-Cholesterol 15 0 - 30 mg/dL [facility] LABS Cholesterol/HDL Ratio 3.2 0.0 - 5.0 [facility] LAB[facility] Specimen Anatomical Collection Method Collection Time Receive d Time (Source) Location / / Volume Laterality Blood specimen 02/08/2012 7:25 AM 012 7:30 (specimen) CDT AM CDT Darian Joshi MD LAB - BLOOD ORDERABLES Performing Organization Address City/State/ZIP Code Phon e Number [facility] [address] [place] [address] [facility] LAB[facility] ABO/Rh type and screen (02/08/2012 7:25 AM CDT) Patholo gist Method Time Signature ABO A [facility] LABS RH(D) Pos [facility] LABS Antibody Neg [facility] Screen [facility] LABS Specimen 02/11/2012 [facility] Expires [facility] LABS Specimen Anatomical Collection Method Collection Time Receive d Time (Source) Location / / Volume Laterality Blood specimen 02/08/2012 7:25 AM 012 7:30 (specimen) CDT AM CDT Darian Joshi MD LAB - BLOOD BANK TEST ORDER Performing Organization Address City/[facility]/ZIP Code Phon e Number [facility] [address] LABS Varicella zoster antibody IgG (02/08/2012 7:25 AM CDT) Patholo gist Method Time Signature Varicella 1023.00 [facility] Zoster IgG [place] Immune Status CAMPUS LABS Ratio Vari Zoster Positive, [facility] IgG Interp suggests [place] prev. CAMPUS LABS exposure and probable immunity Specimen Anatomical Collection Method Collection Time Receive d Time (Source) Location / / Volume Laterality Blood specimen 02/08/2012 7:25 AM 012 7:30 (specimen) CDT AM CDT Darian Joshi MD LAB - BLOOD ORDERABLES Performing Organization Address City/[facility]/ZIP Code Phon e Number [facility] [address] LABS Anti treponema EIA (02/08/2012 7:25 AM CDT) Analysis Performed At Patho logist Time Signature Treponema Negative NEG [facility] Antibody [place] LABS Specimen Anatomical Collection Method Collection Time Receive d Time (Source) Location / / Volume Laterality Blood specimen 02/08/2012 7:25 AM 012 7:30 (specimen) CDT AM CDT Darian Joshi MD LAB - BLOOD ORDERABLES Performing Organization Address City/[facility]/ZIP Code Phon e Number [facility] [address] [place], [place] [phone] [place] [address] LABS HIV 1 and 2 Antibody (02/08/2012 7:25 AM CDT) Analysis Performed At Patho logist Time Signature HIV 1&2 Negative NEG [facility] Antibody [facility] LABS Specimen Anatomical Collection Method Collection Time Receive d Time (Source) Location / / Volume Laterality Blood specimen 02/08/2012 7:25 AM 012 7:30 (specimen) CDT AM CDT Darian Joshi MD LAB - BLOOD ORDERABLES Performing Organization Address City/State/ZIP Code Phon e Number [facility] [address] [place], [place] [phone] [place] [address] LABS Hepatitis C antibody (02/08/2012 7:25 AM CDT) Analysis Performed At Patho logist Time Signature Hepatitis C Negative NEG [facility] Antibody [facility] LABS Specimen Anatomical Collection Method Collection Time Receive d Time (Source) Location / / Volume Laterality Blood specimen 02/08/2012 7:25 AM 012 7:30 (specimen) CDT AM CDT Darian Joshi MD LAB - BLOOD ORDERABLES Performing Organization Address City/State/ZIP Code Phon e Number [facility] [address] [place], [place] [phone] [place] [address] LABS Hepatitis B surface antigen (02/08/2012 7:25 AM CDT) Analysis [facility] Signature Hep B Surface Negative NEG [facility] Agn [facility] LABS Specimen Anatomical Collection Method Collection Time Receive d Time (Source) Location / / Volume Laterality Blood specimen 02/08/2012 7:25 AM 012 7:30 (specimen) CDT AM CDT Darian Joshi MD LAB - BLOOD ORDERABLES Performing Organization Address City/[facility]/ZIP Code Phon e Number [facility] [address] LABS Hepatitis B surface antibody (02/08/2012 7:25 AM CDT) P athologist Signature Hep B Surface 135.0 [facility] LABS Comment: Positive, Patient is considered to [...] Phon e Number [facility] [address] [place], [place] [phone] [place] [address] LABS Hepatitis B core antibody (02/08/2012 7:25 AM CDT) Analysis Performed At Patho logist Time Signature Hepatitis B Negative NEG [facility] Specimen Anatomical Collection Method Collection Time Receive d Time (Source) Location / / Volume Laterality Blood specimen 02/08/2012 7:25 AM 012 7:30 (specimen) CDT AM CDT Darian Joshi MD LAB - BLOOD ORDERABLES Performing Organization Address City/[facility]/ZIP Code Phon e Number [facility] [address] LABS EBV VCA IgG Antibody (02/08/2012 [...] - BLOOD ORDERABLES Performing Organization Address City/[facility]/ZIP Code Phon e Number [facility] [address] LABS CMV IGG ANTIBODY (02/08/2012 7:25 [...] - BLOOD ORDERABLES Performing Organization Address City/[facility]/ZIP Code Phon e Number [facility] [address] LABS Immunology recipient: SOT HLA Workup (ABC,DR,DQ,PRA,Crossmatch) (02/08/2012 7:25 AM CDT) Patholo gist Method Time Signature Immunology SOT HLA WORKUP [facility] Test Name [facility] LABS Immunology Specimen [facility] Result received - [place] Immunology CAMPUS LABS report to follow upon completion. Specimen Anatomical Collection Method Collection Time Receive d Time (Source) Location / / Volume Laterality Blood specimen 02/08/2012 7:25 AM 012 7:30 (specimen) CDT AM CDT Darian Joshi MD LAB - IMMUNOLOGY ORDERABLES Performing Organization Address City/State/ZIP Code Phon e Number [facility] [address] [place] [address] [facility] [place] LABS (ABNORMAL) CBC with platelets differential (02/08/2012 7:25 AM CDT) [facility] gist Method Time Signature WBC 6.3 4.0 - [facility] 11.0 UNIVERSITY 10e9/L CAMPUS LABS RBC Count 3.97 (L) 4.4 - 5.9 [facility] 10e12/L [facility] LABS Hemoglobin 12.0 (L) 13.3 - [facility] 17.7 g/dL [facility] LABS Hematocrit 36.3 (L) 40.0 - [facility] 53.0 % [facility] LABS MCV 91 78 - 100 [facility] fl UN[facility]ERSITY [place] LABS MCH 30.2 26.5 - [facility] 33.0 pg [place] CAMPUS LABS MCHC 33.1 31.5 - [facility] 36.5 g/dL [facility] LABS RDW 15.3 (H) 10.0 - [facility] 15.0 % UNIVERS[facility] CAMPUS LABS Platelet Count 144 (L) 150 - 450 [facility] 10e9/L [facility] LABS Diff Method Automated [facility] Method [facility] LABS % Neutrophils 57.7 40 - 75 % [facility] LABS % Lymphocytes 27.7 20 - 48 % [facility] % Monocytes 8.2 0 - 12 % [facility] % Eosinophils 6.1 (H) 0 - 6 % [facility] LABS % Basophils 0.3 0 - 2 % [facility] % Immature 0.0 0 - 0.4 % [facility] Granulocytes [facility] LABS Absolute 3.6 1.6 - 8.3 [facility] Neutrophil 10e9/L [facility] LABS Absolute 1.7 0.8 - 5.3 [facility] Lymphocytes 10e9/L [facility] LABS Absolute 0.5 0.0 - 1.3 [facility] Monocytes 10e9/L [facility] LABS Absolute 0.4 0.0 - 0.7 [facility] Eosinophils 10e9/L [facility] LABS Absolute 0.0 0.0 - 0.2 [facility] Basophils 10e9/L UNIVERSITY CAMPUS LABS Abs Immature 0.0 0 - 0.03 [facility] Granulocytes 10e9/L [facility] LABS Specimen Anatomical Collection Method Collection Time Receive d Time (Source) Location / / Volume Laterality Blood specimen 02/08/2012 7:25 AM 012 7:30 (specimen) CDT AM CDT Darian Joshi MD LAB - BLOOD ORDERABLES Performing Organization Address [facility]/ZIP Code Phon e Number [facility] [address] LABS Lupus panel (02/08/2012 7:25 AM CDT) Component Value Ref Test Analysis Performed At Patholo gist Range Method Time Signature Lupus Result Negative NEG [facility] (Note) [place] COMMENTS: [place] LABS The INR is normal. APTT is normal. ??1:2 Mix is not indicated. DRVVT Screen is normal. Thrombin time is normal. NEGATIVE TEST; A LUPUS ANTICOAGULANT WAS NOT DETECTED IN THI S SPECIMEN WITHIN THE LIMITS OF THE TESTING REPERTOIRE. If the clinical picture is strongly suggestive of an antipho spholipid syndrome, recommend anticardiolipin and [id number] (IgG and IgM) antibody tests. Dee Duenas M.D. ??[phone] 02-09-2012. APTT'S: ?? Seconds Reagent = Stago [...] - BLOOD ORDERABLES Performing Organization Address City/[facility]/ZIP Code Phon e Number [facility] [address] [place], [place] [phone] [place] [address] LABS Thrombin time (02/08/2012 7:25 AM CDT) P athologist Signature Thrombin Time 16.7 13.0 - [facility] 19.0 sec CAMPUS LABS Specimen Anatomical Collection Method Collection Time Receive d Time (Source) Location / / Volume Laterality Blood specimen 02/08/2012 7:25 AM 012 7:30 (specimen) CDT AM CDT Darian Joshi MD LAB - BLOOD ORDERABLES Performing Organization Address City/[facility]/ZIP Code Phon e Number [facility] [address] LABS Partial thromboplastin time (02/08/2012 7:25 AM CDT) P athologist Signature PTT 29 22 - 37 sec [facility] LABS Specimen Anatomical Collection Method Collection Time Receive d Time (Source) Location / / Volume Laterality Blood specimen 02/08/2012 7:25 AM 012 7:30 (specimen) CDT AM CDT Darian Joshi MD LAB - BLOOD ORDERABLES Performing Organization Address City/[facility]/ZIP Code Phon e Number [facility] [address] LABS INR (02/08/2012 7:25 AM CDT) P athologist Signature INR 1.11 0.86 - 1.14 [facility] LABS Specimen Anatomical Collection Method Collection Time Receive d Time (Source) Location / / Volume Laterality Blood specimen 02/08/2012 7:25 AM 012 7:30 (specimen) CDT AM CDT Darian Joshi MD LAB - BLOOD ORDERABLES Performing Organization Address City/[facility]/ZIP Code Phon e Number [phone] [place] [address] LABS Factor 2 and 5 mutation analysis (02/08/2012 7:07 AM CDT) Component Value Ref Test Analysis Performed At [facility] Range Method Time Signature Copath Report Patient Name: ELINOR GUTHRIE MR#: [id number] Specimen #: [id number] Collected: 02/08/2012 07:07 Received: 02/08/2012 09:00 Reported: 02/11/2012 14:03 Ordering Phy(s): DARIAN JOSHI TEST(S) REQUESTED: A: Factor 5 Leiden and Factor 2 by PCR B: DNA Isolation, High purity extraction SPECIMEN DESCRIPTION: Blood METHODOLOGY: ?? The regions of genomic DNA containing the G1 691A Factor 5 gene mutation (Factor V Leiden) and the Factor 2(Prothrombin G79452S) gene mutation were simultaneously amplified using the polyme rase chain reaction. ??The amplified products were digested with restri ction endonuclease TaqI and products were analyzed by gel electrop horesis. RESULTS: FACTOR 5-LEIDEN RESULTS: Mutation analyzed: ? 1691G>A Factor 5 Mutation Interpretation: ?ABSENT Factor 5 Mutation genotype: ?G/G FACTOR 2/PROTHROMBIN RESULTS: Mutation analyzed: ? 70193A>A Factor 2 Mutation Interpretation: ?ABSENT Factor 2 Mutation genotype: ?G/G INTERPRETATION: The patient is negative for the Factor 5 mutation and negati ve for the Factor 2 mutation. This test was developed and its performance determined by k[facility] de [facility] ??Molecular Diagnostic Laboratory. It has [...] By: Liliya Stone MD TESTING LAB LOCATION: [address] [id number] COLLECTION SITE: Client: ??[facility] Location: ??UUTXO (B) Specimen Anatomical Collection Method Collection Time Receive d Time (Source) Location / / Volume Laterality 02/08/2012 7:07 AM 2 9:00 CDT AM CDT Provider Unknown LAB - GENOMICS Performing Organization Address City/State/ZIP Code Phon e Number [place] (ABNORMAL) Routine UA with microscopic (02/08/2012 7:06 AM CDT) Component Value Ref Test Analysis Performed At [facility] gist Range Method Time Signature Color Urine Light Yellow [facility] Appearance Urine Clear [facility] Glucose Urine 300 (A) NEG [facility] mg/dL [facility]ITY [facility]AMPUS LABS Bilirubin Urine Negative NEG [facility] LABS Ketones Urine Negative NEG [facility] mg/dL [facility] [place] LABS Specific [employer] 1.010 1.003 - [facility] Urine 1.035 [facility] [place] LABS Blood Urine Negative NEG [facility]ITY [facility]AMP[facility] LABS pH Urine 7.5 (H) 5.0 - [facility] 7.0 pH [facility]AMP[facility] LABS Protein Albumin 300 (A) NEG [facility] Urine mg/dL [facility] [place] LABS Urobilinogen Normal 0.0 - [facility] mg/dL 2.0 [place] mg/dL CAMPUS LABS Nitrite Urine Negative NEG [facility]ITY [facility] LABS Leukocyte Negative NEG [facility] Esterase Urine [facility]ITY [place] LABS Source Unspecified [facility] Urine [facility]ITY [facility]AMP[facility] LABS WBC Urine 1 0 - 2 [facility] /HPF [place] CAMPUS LABS RBC Urine <1 0 - 2 [facility] /HPF [facility] LABS Hyaline Casts 3 (H) 0 - 2 [facility] /LPF [facility] LABS Specimen Anatomical Collection Method Collection Time Receive d Time (Source) Location / / Volume Laterality Urine specimen 02/08/2012 7:06 AM 012 7:08 (specimen) CDT AM CDT Darian Joshi MD LAB - URINE ORDERABLES Performing Organization Address City/State/ZIP Code Phon e Number [facility] [address] [facility] LABS documented in this encounter Visit Diagnoses Diagnosis Diabetes mellitus, type 2 (H) Type II or unspecified type diabetes aung litus without mention of complication, not stated as uncontrolled End stage renal disease (H) End stage renal disease documented in this encounter Care Teams Field Rep Relationship Specialty Start Date End Date Toña Jones MD PCP - General Nephrology 11/25/11 01/01/14 documented as of this encounter
--- OUTSIDE RECORDS SUMMARY | 2022-05-19 11:44 | XMS_ITS | Encounter Summary ---
:1950 Author Organization [place] Address [address] [place] [address]. [place] [address] Care Team Providers Name Role Phone Toña [...] on filedocumented in this encounter Care Teams Sdv Pilot/Navigator/Dds Operator Relationship Specialty Start Date End Date Toña Jones MD PCP - General Nephrology 11/25/11 01/01/14 Momo Forbes PCP - General Family Practice 01/02/[address] [address] Ingrid Santana, RN Registered Nurse Transplant 02/10/12 10/01/15 documented as of this encounter
--- OUTSIDE RECORDS SUMMARY | 2022-05-19 11:44 | XMS_ITS | Encounter Summary ---
:1950 Author Organization [place] Address [address] [place] [address]. [place] [address] Care Team Providers Name Role Phone Toña [...] on filedocumented in this encounter Care Teams Wafer Mounter Relationship Specialty Start Date End Date Toña Jones MD PCP - General Nephrology 11/25/11 01/01/14 Momo Forbes PCP - General Family Practice 01/02/14 [facility] [address] [place] [address] Ingrid Santana, RN Registered Nurse Transplant 02/10/12 10/01/15 documented as of this encounter
--- OUTSIDE RECORDS SUMMARY | 2022-05-19 11:44 | XMS_ITS | Encounter Summary ---
:1950 Author Organization [place] Address [facility] [place] [address] Care Team Providers Name Role Phone Toña Jones MD Primary Care Provider Reason for Referral - Closed Specialty Diagnoses / Procedures Referred By Contact Refer red To Contact Diagnoses Diabetes mellitus, type 2 (H) End stage renal disease (H) [facility], [place] [phone] Referral ID Status Reason Start Date Expiration Date Visits Requ ested Visits Authorized [id number] Closed 12/02/2011 05/30/2012 1 1 - Closed Specialty Diagnoses / Procedures Referred By Contact Refer red To Contact Diagnoses Diabetes mellitus, type 2 (H) End stage renal disease (H) [facility], [address] [phone] Referral ID Status Reason Start Date Expiration Date Visits Requ ested Visits Authorized [id number] Closed 12/02/2011 05/30/2012 1 1 - Closed Specialty Diagnoses / Procedures Referred By Contact Refer red To Contact Diagnoses Diabetes mellitus, type 2 (H) End stage renal disease (H) [facility] Renal 2nd Floor, [facility] 2A [place] [phone] Referral ID Status Reason Start Date Expiration Date Visits Requ ested Visits Authorized [id number] Closed 12/02/2011 05/30/2012 1 1 - Closed Specialty Diagnoses / Procedures Referred By Contact Refer red To Contact Diagnoses Diabetes mellitus, type 2 (H) End stage renal disease (H) [facility] Renal 2nd Floor, Clinic 2A [place] [phone] Referral ID Status Reason Start Date Expiration Date Visits Requ ested Visits Authorized [id number] Closed 12/02/2011 05/30/2012 1 1 - Closed Specialty Diagnoses / Procedures Referred By Contact Refer red To Contact Diagnoses Diabetes mellitus, type 2 (H) End stage renal disease (H) [facility], [address] [phone] Referral ID Status Reason Start Date Expiration Date Visits Requ ested Visits Authorized [id number] Closed 12/02/2011 05/30/2012 1 1 - Closed Specialty Diagnoses / Procedures Referred By Contact Refer red To Contact Diagnoses Diabetes mellitus, type 2 (H) End stage renal disease (H) [facility] Renal [address] [place] [address], [address] [phone] Referral ID Status Reason Start Date Expiration Date Visits Requ ested Visits Authorized [id number] Closed 12/02/2011 05/30/2012 1 1 - Closed Specialty Diagnoses / Procedures Referred By Contact Refer red To Contact Diagnoses Diabetes mellitus, type 2 (H) End stage renal disease (H) [facility] Renal 2nd Floor, Clinic [address]A [address] [phone] Referral ID Status Reason Start Date Expiration Date Visits Requ ested Visits Authorized [id number] Closed 12/02/2011 05/30/2012 1 1 - Closed Specialty Diagnoses / Procedures Referred By Contact Refer red To Contact Diagnoses Diabetes mellitus, type 2 (H) End stage renal disease (H) [facility] Renal 2nd Floor, Clinic [address]A [address] [phone] Referral ID Status Reason Start Date Expiration Date Visits Requ ested Visits Authorized [id number] Closed 12/02/2011 05/30/2012 1 1 - Closed Specialty Diagnoses / Procedures Referred By Contact Refer red To Contact Diagnoses Diabetes mellitus, type 2 (H) End stage renal disease (H) [facility] Renal 2nd Floor, Clinic 2A [address] [phone] Referral ID Status Reason Start Date Expiration Date Visits Requ ested Visits Authorized [id number] Closed 12/02/2011 05/30/2012 1 1 Encounter Details Date Type Department Care Team Description 12/02/2011 Orders Only Nephrology Ingrid Santana, Diabetes mellitus, type 2 (H ); 2nd Floor, Clinic 2A RN End stage renal disease (H) [facility] [phone] Building (Work) [address] [place] [phone] Social History Tobacco Use Types Packs/Day [...] 2 (H) End stage renal disease (H) EXTENDED INSURANCE CLERK Referral Routine Diabetes mellitus, Ordered: 12/02/2011 REFERRAL type 2 (H) End stage renal disease (H) NEPHROLOGY ADULT REFERRAL Referral Routine Diabetes mellit us, Ordered: 12/02/2011 type 2 (H) End stage renal disease (H) GENERAL SURG ADULT Referral Routine Diabetes mellitus, Ord ered: 12/02/2011 REFERRAL type 2 (H) End stage renal disease (H) OFFICE SUPPORT ASSOCIATE REFERRAL Referral Routine Diabetes mellitu s, Ordered: [...] disease documented in this encounter Care Teams Farm Equipment Technician Relationship Specialty Start Date End Date Toña Jones MD PCP - General Nephrology 11/25/11 01/01/14 documented as of this encounter
--- OUTSIDE RECORDS SUMMARY | 2022-05-19 11:44 | XMS_ITS | Encounter Summary ---
:1950 Author Organization [place] Address [facility] [place] [address] Care Team Providers Name Role Phone Toña Jones MD Primary Care Provider Reason for Visit Reason Onset Date Comments Pre Visit Planning - Done 02/07/2012 Consult prior to kidney transplant, needs EKG please. Encounter Details Date Type Department Care Team Description 02/07/2012 PRE VISIT [facility] Barbara Bradley Pre Visit Planning - Physicians Heart MD Monae Done (Consult prior to [facility] [address] kidney transplant, [place] [address] needs EKG please.) 4th Floor, Clinic [address] [phone] Social History Tobacco Use Types [...] filedocumented in this encounter Care Teams Air Sealing Technician Relationship Specialty Start Date End Date Toña Jones MD PCP - General Nephrology 11/25/11 01/01/14 documented as of this encounter
--- OUTSIDE RECORDS SUMMARY | 2022-05-19 11:44 | XMS_ITS | Encounter Summary ---
:1950 Author Organization [place] Address [address] [place] [address]. [place] [address] Care Team Providers Name Role Phone Toña [...] on filedocumented in this encounter Care Teams Buffing Line Set Up Worker Relationship Specialty Start Date End Date Toña Jones MD PCP - General Nephrology 11/25/11 01/01/14 Momo Forbes PCP - General Family Practice 01/02/14 [facility] [address] [place] [address] Ingrid Santana, RN Registered Nurse Transplant 02/10/12 10/01/15 documented as of this encounter
--- OUTSIDE RECORDS SUMMARY | 2022-05-19 11:44 | XMS_ITS | Encounter Summary ---
:1950 Author Organization [place] Address [address] [place] [address]. [place] [address] Care Team Providers Name Role Phone Toña [...] on filedocumented in this encounter Care Teams Dispatcher Motor Vehicle Relationship Specialty Start Date End Date Toña Jones MD PCP - General Nephrology 11/25/11 01/01/14 Momo Forbes PCP - General Family Practice 01/02/14 [facility] [address] [place] [address] Ingrid Santana, RN Registered Nurse Transplant 02/10/12 10/01/15 documented as of this encounter
--- OUTSIDE RECORDS SUMMARY | 2022-05-19 11:44 | XMS_ITS | Encounter Summary ---
:1950 Author Organization [place] Address [facility] [place] [address] Care Team Providers Name Role Phone Toña Jones MD Primary Care Provider Reason for Visit Reason Onset Date Comments Patient Reminder 02/01/2012 Encounter Details Date Type Department Care Team Description 02/01/2012 PRE VISIT Nephrology Joseph Quintana, Patient Reminder 2nd Floor, Clinic 2A MD Tommy Gu[address] [place], [place] [address] [place] [address] (Wo rk) [phone] Social History Tobacco Use Types Packs/Day Years [...] on filedocumented in this encounter Care Teams Milk House Worker Relationship Specialty Start Date End Date Toña Jones MD PCP - General Nephrology 11/25/11 01/01/14 documented as of this encounter
--- OUTSIDE RECORDS SUMMARY | 2022-05-19 11:44 | XMS_ITS | Encounter Summary ---
:1950 Author Organization [place] Address [address] [facility] [place] [address] Care Team Providers Name Role Phone Unavailable Primary Care Provider Unavailable Encounter Details Date Type Department Care Team Description 07/30/[address] [facility] Results [address] [place] [id number] Social History Tobacco Use Types Packs/Day Years Used Date Never Assessed Sex Assigned at Date Recorded Not on file documented as of this encounter Plan of Treatment Not on filedocumented as of this encounter Procedures Procedure Name Priority Date/Time Associated Diagnosis Comme [facility] RT DUPLEX Routine 07/30/2009 12:32 PM Results for this EXTREM VENOUS,UNI WIRE FRAME MAKER procedure are in OR LTD the results section. documented in this encounter Results RT DUPLEX EXTREM VENOUS,UNI OR LTD (07/30/2009 12:32 PM WIRE FRAME MAKER) Specimen (Source) Anatomical Collection Method Collection Time Re ceived Time Location / / Volume Laterality 07/30/2009 12:32 PM WIRE FRAME MAKER Impressions RADIOLOGY RESULTS - 07/30/2009 4:21 PM [...]
--- OUTSIDE RECORDS SUMMARY | 2022-05-19 11:44 | XMS_ITS | Encounter Summary ---
:1950 Author Organization [place] Address [address] [place] [address] Care Team Providers Name Role Phone Toña Jones MD Primary Care Provider Encounter Details Date Type Department Care Team Description 02/08/2012 Orders Only [facility] Thomas, Ty Blink, End sta ge kidney Pulmonary Function disease ( H) (Primary Laboratory Dx) 6th Floor [address] [place] [address] Social History Tobacco Use Types [...] Lab Testing (Generic) (02/08/2012 8:35 AM CDT) [facility] Method Time Signature Pulmonary COPATH Function Test Name: ? ELINOR GUTHRIE ? ID: ?[id number] Doctor: ?JESUS THOMAS ?Height: ?72.00 in ? [...] INTERPRETATION: The FVC, FEV1, FEV1/FVC ratio and ZHY25-76% are within normal limits. ??The inspiratory flow [...] disease documented in this encounter Care Teams Machine Loader Relationship Specialty Start Date End Date Toña Jones MD PCP - General Nephrology 11/25/11 01/01/14 documented as of this encounter
--- OUTSIDE RECORDS SUMMARY | 2022-05-19 11:44 | XMS_ITS | Encounter Summary ---
:1950 Author Organization [place] Address [facility] [place] [address] Care Team Providers Name Role Phone Toña [...] on filedocumented in this encounter Care Teams Freezer Machine Operator Relationship Specialty Start Date End Date Toña Jones MD PCP - General Nephrology 11/25/11 01/01/14 Momo Forbes PCP - General Family Practice 01/02/14 [facility] [address] [place] [address] Ingrid Santana, RN Registered Nurse Transplant 02/10/12 10/01/15 documented as of this encounter
--- OUTSIDE RECORDS SUMMARY | 2022-05-19 11:44 | XMS_ITS | Encounter Summary ---
:1950 Author Organization [place] Address [address] [place] [address]. [place] [address] Care Team Providers Name Role Phone Toña Jones MD Primary Care Provider Reason for Visit Reason Comments Transplant Evaluation Kidney transplant evaluation - Diabetes, End Stage Renal Disease Encounter Details Date Type Department Care Team Description 02/08/2012 Office Visit The Transplant Edda Cardenas, Ty Blink, DM (diabetes 2nd Floor, Clinic 2A MD mellitus), type 2 (H) Tommy Wilburn (Primar y Dx) [address] [phone] Social History Tobacco Use Types Packs/Day Years [...] (willing/able to accept information): Yes Any cultural factors/holiness beliefs that may influence understanding or compliance? [...] uncontrolled documented in this encounter Care Teams Chiller Hand Relationship Specialty Start Date End Date Toña Jones MD PCP - General Nephrology 11/25/11 01/01/14 documented as of this encounter
== END 2022-05-19 11:29 | disposition home or self-care (01) ==
PROVIDERS: PCP Family Medicine; Visit Provider Surgery
DX: L89.313 Pressure ulcer of right buttock, stage 3 (principal)
CPT/HCPCS: 97597

== ENCOUNTER 2022-05-21 13:14 | Outpatient (CLI) | payer MEDICARE, BC, SELFPAY ==
--- OUTSIDE RECORDS SUMMARY | 2022-05-21 13:16 | XMS_ITS | Clinical Summary ---
:1950 Author Organization [employer] [facility] [place] [address] Care Team Providers Name Role Phone Momo Forbes MD Primary Care Provider [phone] Allergies No known active allergies Medications [...] infection (HC) use Medela Wound Vac at [facility] Right foot wound debridement with application of integra bilayer matrix and wound vac, 10.0 cm x 5.0 cm x 0.6 cm. M- W-F dressing changes gabapentin Take 1 capsule by 21 capsule 0 09/26/2020 Active (NEURONTIN) 300 mg mouth 3 times capsuleIndications: daily. Indications: neuropathic pain neuropathic pain durable medical Custom [place] boot to 1 Each 0 11/26/2020 Active [...] Visit Angie Chatterjee, DPM [address] [place] [address] (Wo rk) Health Maintenance Due Date Last [...] Christoph 140/90 Medical Devices Implanted Type Area Depilatory Painter Device Shelf Model / Identifier Expiration Date Ser ial / Lot Drsg Wound 4x5in Matrix Bilayer Right: 08/21/2020 [id number] / Implanted: Qty: 1 on 09/23/2020 by Araceli Fowler DPM at [facility] / [id number] Description: DRSG WOUND 4X5IN MATRIX JYOTI BHAVIK [...] Organization Address City/State/ZIP Code Phon e Number [facility] [address] [place] [address] LABORATORY-CENTRAL 1999 LABORATORY PATH TISSUE EXAM (04/07/2022 11:40 AM CDT)Only the most recent of2 resultswithin the time period is included. Component Value Ref Test Analysis Performed At [facility] gist Range Method Time Signature Case Report Pathology Report ?Case: [id number] ? 04/12/2022 [facility] Authorizing Provider: ??Unkn own, Doctor ?Collected: ? 04/07/2022 1140 ? 11:31 AM LABO RATORY-CE Ordering Location: ? [facility] CENTRAL LAB ?Received: ?04/08/2022 1609 ? CDT NT RAL Pathologist: ? Ricky Lisa ? LABORATORY ? MD Jessie ? Specimen: ?Right Clavicl e ? Final A) SKIN, RIGHT CLAVICLE, WOUND, BIOPSY: 04/12/2022 [facility] Electronically Diagnosis 1. Ulceration with serum crust and underlying granulat ion tissue 11:31 AM LABORATORY-CE signed by 2. Negative for malignancy CDT NTR Ricky Roberts MD on 04/12/20 22 at 11:31 AM Comment The presence 04/12/2022 [facility] of blue and 11:31 AM LABORATORY-CE green ink are CDT NTRAL confirmed on LABORATORY tissue sections. Clinical Mr. Guthrie is 04/12/2022 [facility] Information a 72 y.o. with 11:31 AM [...] LABORATORY LH 04/08/2022 Microscopic The final 04/12/2022 [facility] Description diagnosis is 11:31 AM LABORATORY-CE based on CDT NTRAL microscopic LABORATORY examination of appropriate sections of all specimens. Additional 04/12/2022 [facility] Information Interpreted at [facility], Central Laboratory - [address], [place] [address] 11:31 AM LABORATORY-CE CDT NTRAL LABORATORY Specimen Anatomical Collection Method Collection Time Receive d Time (Source) Location / / Volume Laterality Other (Right 04/07/2022 11:40 04/08/2022 4:09 Clavicle) AM CDT PM CDT Doctor Unknown PATHOLOGY/CYTOLOGY Performing Organization Address City/State/ZIP Code Phon e Number [facility] [address] [place] [address] LABORATORY-CENTRAL 2000 LABORATORY from Last 3 Months Additional Health Concerns Infection Onset Date Last Indicated MRSA ClearanceComment: If >12 months sin ce positive culture, precautions can be discontinued if patient has no MRSA risk factors. 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 right check exclusions for contact precaution dis continuation (if > 12 months since positive culture): resides in acute/kelp gatherer care, receiving hemodialysis, has chronic open wounds/skin damage, has long-te rm percutaneous indwelling medical devic es Exclusions for nares collection (if <12 months since positive culture) include all of the previous exclusions plus patients on antibiotics 7 days prior to collection Insurance Payer Benefit Plan / Subscriber ID Effective Phone Address T ype Group Dates MEDICARE PART MEDICARE PART A [id number] 2011-Prese A TTN: CLAIMS A - HB USE HB ONLY nt [address] [place] [address] MEDICARE PART MEDICARE PART B [id number] 2012-Pres A TTN: CLAIMS B - HB USE HB ONLY [place] [address] [place] [address] MEDICARE - PB MEDICARE PB [id number] 2014-Prese ATTN: CLAIMS USE ONLY ONLY nt [address] [facility] [place] [address] BLUE CROSS BLUE CROSS OF [id number] 2016-Prese [address] [place] [address] BLUE CROSS BLUE CROSS OF [id number] 2013-Prese [address] [place] [address] MEDICARE PPS HC MEDICARE PPS [id number] 2011-Prese [address] [place] [address] (Home) [place] [address] Diego Guthrie Personal/Family Self [address] (Home) [place] [id number] Diego Guthrie Personal/Family Self [address] ([place] [id number] Diego Guthrie Mcc Self [address] (Home) [place] [id number] Advance Directives Documents on File Type Date Recorded Patient Asphalt Blender Explanati on POLST 09/26/2020 Latest Code Status [...] AM Code Status Discussion: Discussed Care Teams Log Getter Relationship Specialty Start Date End Date Momo Forbes MD PCP - General Family Practice 01/22/211999 [place] [address]
--- OUTSIDE RECORDS SUMMARY | 2022-05-21 13:17 | XMS_ITS | Encounter Summary ---
:1950 Author Organization [place] Address [address] [place] [address] Care Team Providers Name Role Phone Momo Forbes Primary Care Provider Joseph Quintana MD Unavailable Encounter Details Date Type Department Care Team Description 04/29/2022 External Order [facility] Outside, Provide r Results Molecular Diagnostic s [address] [place] [address] Social History Tobacco Use Types Packs/Day Years [...] on filedocumented in this encounter Care Teams Jackaroo Relationship Specialty Start Date End Date Momo Forbes PCP - General Family Practice 01/02/14 [facility] [address] [place] [address] Joseph Quintana, Assigned Nephrology 03/29/21 Provider [address] [facility] 353 [facility] [address] [place] [address] documented as of this encounter
--- OUTSIDE RECORDS SUMMARY | 2022-05-21 13:17 | XMS_ITS | Encounter Summary ---
:1950 Author Organization [place] Address [facility] [place] [address] Care Team Providers Name Role Phone Momo Forbes Primary Care Provider Joseph Quintana MD Unavailable Reason for Visit Reason Onset Date Comments Voicemail 04/13/2022 Encounter Details Date Type Department Care Team Description 04/13/2022 Telephone [facility] Transplant Obdulia Peacock, BOGDAN Voicemail Clinic [address] [place] [address] [phone] Social History Tobacco Use Types Packs/Day [...] to patient via mail Gretta Peacock RN Fire Fighting Equipment Specialist [phone] Telephone Encounter - Adriana Raza - 04/13/2022 2:31 PM CDT Voicemail Date/Time: 04/13/22 2:27 pm Reason for call: Diego received a letter stating we have been trying ot reach him so he was responding documented in this encounter Plan of Treatment Not on filedocumented as of this encounter Visit Diagnoses Not on filedocumented in this encounter Care Teams Medical Billing Service Relationship Specialty Start Date End Date Momo Forbes PCP - General Family Practice 01/02/14 [facility] [address] [place] [address] Joseph Quintana, Assigned Nephrology 03/29/21 MD Provider [address] [place] [address] documented as of this encounter
--- OUTSIDE RECORDS SUMMARY | 2022-05-21 13:17 | XMS_ITS | Encounter Summary ---
:1950 Author Organization [place] Address [facility] [place] [address] Care Team Providers Name Role Phone Momo Forbes Primary Care Provider Joseph Quintana MD Unavailable Reason for Visit Reason Onset Date Comments Transplant Lab 12/10/2021 Encounter Details Date Type Department Care Team Description 12/10/[address] [facility] Transplant Mati Recinos RN Transplant Lab Clinic [address] [place] [address] [phone] Social History Tobacco Use Types Packs/Day [...] on filedocumented in this encounter Care Teams Register In Chancery Relationship Specialty Start Date End Date Momo Forbes PCP - General Family Practice 01/02/14 [facility] [address] [place] [address] Joseph Quintana, Assigned Nephrology 03/29/21 MD Provider 717 [facility] 353 [facility] [address] [place] [address] documented as of this encounter
--- OUTSIDE RECORDS SUMMARY | 2022-05-21 13:17 | XMS_ITS | Encounter Summary ---
:1950 Author Organization [place] Address [facility] [place] [address] Care Team Providers Name Role Phone Momo Forbes Primary Care Provider Joseph Quintana MD Unavailable Reason for Visit Reason Onset Date Comments Transplant 11/24/2021 Encounter Details Date Type Department Care Team Description 11/24/2021 Telephone [facility] Transplant Obdulia Peacock, dispatcher service or work Clinic [address] [place] [address] [phone] Social History Tobacco Use Types Packs/Day [...] had labs drawn ~one week ago at [facility], however results have not beenfaxed to [facility]. PLAN: call lab to have results faxed OUTCOME: New labs orders sent. Most recent bmp and cbc requested from october 2021. Tac and UPC due. Left detailed message with instructions to obtain tacrolimus trough level and UPC at earliest convenience. Asked for CB to confirm understanding. Gretta Peacock dispatcher service or workPound Attendant [phone] Telephone Encounter - Azael Rodriguez - 11/24/2021 3:32 PM CDT Patient called to touch base with the RNCC regarding some questions. documented in this encounter Plan of Treatment Not on filedocumented as of this encounter Visit Diagnoses Not on filedocumented in this encounter Care Teams Publishing Manager Relationship Specialty Start Date End Date Momo Forbes PCP - General Family Practice 01/02/14 [facility] [address] [place] [address] Joseph Quintana, Assigned Nephrology 03/29/21 MD Provider [address] [place] [address] 1932 [place], [place] [address] documented as of this encounter
--- OUTSIDE RECORDS SUMMARY | 2022-05-21 13:17 | XMS_ITS | Encounter Summary ---
:1950 Author Organization [place] Address [address] [place] [address] Care Team Providers Name Role Phone Momo Forbes Primary Care Provider Joseph Quintana MD Unavailable Reason for Visit Reason Onset Date Comments Transplant Lab 05/04/2022 Elevated serum creat inine and proteinuria Encounter Details Date Type Department Care Team Description 05/04/2022 Telephone [facility] Gretta Peacock RN Trans plant Lab (Elevated Transplant Clinic serum creatinine and [address] proteinuria) [place] [address] Social History Tobacco Use Types [...] filedocumented in this encounter Care Teams News Video Editor Relationship Specialty Start Date End Date Momo Forbes PCP - General Family Practice 01/02/14 [facility] [address] [place] [address] Joseph Quintana, Assigned Nephrology 03/29/[address] [place] [address] 1932 [place] [address] documented as of this encounter
--- OUTSIDE RECORDS SUMMARY | 2022-05-21 13:17 | XMS_ITS | Encounter Summary ---
:1950 Author Organization [place] Address [address] [place] [address]. [place] [address] Care Team Providers Name Role Phone Momo Forbes Primary Care Provider Joseph Quintana MD Unavailable Reason for Visit Reason Onset Date Comments Erroneous encounter-disregard 05/02/2022 Encounter Details Date Type Department Care Team Description 05/02/2022 Telephone [facility] Gretta Peacock RN [facility] Trans[facility] encounter-disregard 9 [place] [address] Social History Tobacco Use Types [...] filedocumented in this encounter Care Teams Automatic Washer Mechanic Relationship Specialty Start Date End Date Momo Forbes PCP - General Family Practice 01/02/14 [facility] [address] [place] [address] Joseph Quintana, Assigned Nephrology 03/29/21 MD Provider 7 [facility] 353 [facility] 1932 [place] [address] documented as of this encounter
--- OUTSIDE RECORDS SUMMARY | 2022-05-21 13:17 | XMS_ITS | Encounter Summary ---
:1950 Author Organization [place] Address [address] [place] [address]. [place] [address] Care Team Providers Name Role Phone Momo Forbes Primary Care Provider Joseph Quintana MD Unavailable Reason for Visit Reason Onset Date Comments Refill Request 08/25/2021 Encounter Details Date Type Department Care Team Description 08/25/2021 Refill [facility] Transplant Debbie Calderon LPN Refill Request Clinic [address] [place] [address] [phone] Social History Tobacco Use Types Packs/Day [...] transplant documented in this encounter Care Teams Pmo Manager Relationship Specialty Start Date End Date Momo Forbes PCP - General Family Practice 01/02/14 [facility] [address] [place] [address] Joseph Quintana, Assigned Nephrology 8/8/21 MD Provider 7 [facility] 353 [facility] 1932 [place], [place] [address] documented as of this encounter
--- OUTSIDE RECORDS SUMMARY | 2022-05-21 13:17 | XMS_ITS | Encounter Summary ---
:1950 Author Organization [place] Address [address] [place] [address]. [place] [address] Care Team Providers Name Role Phone Momo Forbes Primary Care Provider Joseph Quintana MD Unavailable Encounter Details Date Type Department Care Team Description 08/25/2021 Orders Only [facility] Jose, Kidney tr ansplanted; Transplant Clinic BOGDAN Marcano -donor kidney transp lant recipient [address] [place] [phone] Social History Tobacco Use Types Packs/Day [...] transplant documented in this encounter Care Teams Neon Glass Blower Relationship Specialty Start Date End Date Momo Forbes PCP - General Family Practice 01/02/14 [facility] [address] [place] [address] Joseph Quintana, Assigned Nephrology 03/29/21 Provider 7 [facility] 353 [facility] 1932 [place], [place] [address] documented as of this encounter
--- OUTSIDE RECORDS SUMMARY | 2022-05-21 13:17 | XMS_ITS | Encounter Summary ---
:1950 Author Organization [place] Address [address] [place] [address] Care Team Providers Name Role Phone Momo Forbes Primary Care Provider Joseph Quintana MD Unavailable Encounter Details Date Type Department Care Team Description 11/16/2021 External Order [facility] Outside, Provide r Results Molecular Diagnostic s [address] [place] [address] Social History Tobacco Use Types Packs/Day Years [...] LAB - BLOOD ORDERABLES Performing Organization Address [facility] Code Phon e Number B[facility]ZE PFT NON-INTERFACED (ONBASE SCANS) (ABNORMAL) Lipid Profile (11/16/2021 7:12 PM CDT) [facility] Method Time Signature Cholesterol 98 90 [...] LAB - BLOOD ORDERABLES Performing Organization Address City/[facility]/ZIP Code Phon e Number BREEZE PFT NON-INTERFACED (ONBASE SCANS) (ABNORMAL) CBC with Platelets & Differential (11/16/2021 4:35 PM CDT) [facility] Method Time Signature WBC Count 6.8 [...] LAB - BLOOD ORDERABLES Performing Organization Address City/[facility]/ZIP Code Phon e Number B[facility]ZE PFT NON-INTERFACED (ONBASE SCANS) documented in this encounter Visit Diagnoses Not on filedocumented in this encounter Care Teams Environmental Remediation Specialist Relationship Specialty Start Date End Date Momo Forbes PCP - General Family Practice 01/02/14 [facility] [address] [place] [address] Joseph Quintana, Assigned Nephrology 03/29/21 MD Provider 717 [facility] 353 [facility] 1932 [place], [place] [address] documented as of this encounter
--- OUTSIDE RECORDS SUMMARY | 2022-05-21 13:17 | XMS_ITS | Encounter Summary ---
:1950 Author Organization [place] Address [facility] [place] [address] Care Team Providers Name Role Phone Momo Forbes Primary Care Provider Joseph Quintana MD Unavailable Reason for Visit Reason Onset Date Comments Transplant 12/02/2021 Encounter Details Date Type Department Care Team Description 12/02/2021 Telephone [facility] Transplant Obdulia Peacock, mailhouse operator Clinic [address] [place] [phone] Social History Tobacco Use Types Packs/Day [...] to confirm he received message. Gretta Peacock mailhouse operatorExecutive Recruiter [phone] ADDENDUM: left message for patient stating he has active orders at preferred lab. Asked to please obtain a full set of transplant labs as soon as possible. Gretta Peacock mailhouse operatorExecutive Recruiter [phone] documented in this encounter Plan of Treatment Not on filedocumented as of this encounter Visit Diagnoses Not on filedocumented in this encounter Care Teams Hand Expansion Envelope Maker Relationship Specialty Start Date End Date Momo Forbes PCP - General Family Practice 01/02/14 [facility] [address] [place] [address] Joseph Quintana, Assigned Nephrology 03/29/[address] [place] [address] 1932 [place] [address] documented as of this encounter
--- OUTSIDE RECORDS SUMMARY | 2022-05-21 13:17 | XMS_ITS | Encounter Summary ---
:1950 Author Organization [place] Address [address] [place] [address] Care Team Providers Name Role Phone Momo Forbes Primary Care Provider Joseph Quintana MD Unavailable Encounter Details Date Type Department Care Team Description 01/19/2022 External Order [facility] Outside, Provide r Results Molecular Diagnostic s [address] [place] [address] Social History Tobacco Use Types Packs/Day Years [...] UA with Microscopic (01/19/2022 11:16 AM CDT) [facility] gist Method Time Signature Color Urine YEL YELLOW NON-INTERFAC (External) ED (ONBASE SCANS) Appearance Urine CLEAR CLEAR NON-INTERFAC (External) ED (ONBASE SCANS) Glucose Urine 2+ NEGATIVE NON-INTERFAC (External) ED (ONBASE SCANS) Bilirubin Urine NEG NEGATIVE NON-INTERFAC (External) ED (ONBASE SCANS) Ketones Urine NEG NEGATIVE NON-INTERFAC (External) ED (ONBASE SCANS) Specific [place] 1.010 1.005 - NON-INTERFAC Urine (External) 1.030 [...] on filedocumented in this encounter Care Teams Casing In Line Feeder Relationship Specialty Start Date End Date Momo Forbes PCP - General Family Practice 01/02/14 [facility] [address] [place] [address] Joseph Quintana, Assigned Nephrology 03/29/[address] [place] [address] 1932 [place], [place] [address] documented as of this encounter
--- OUTSIDE RECORDS SUMMARY | 2022-05-21 13:17 | XMS_ITS | Encounter Summary ---
:1950 Author Organization [place] Address [facility] [place] [address] Care Team Providers Name Role Phone Momo Forbes Primary Care Provider Joseph Quintana MD Unavailable Reason for Visit Reason Onset Date Comments Medication Refill Refill Request 08/20/2021 Encounter Details Date Type Department Care Team Description 08/20/2021 Refill [facility] Joseph Quintana on Refill; Nephrology Clinic MD Herminio Refill Request [address] 909 [facility] 353 [facility] 1932 [place], [place] [address] [phone] Social History Tobacco Use Types Packs/Day Years [...] transplant documented in this encounter Care Teams Leather Heel Breaster Relationship Specialty Start Date End Date Momo Forbes PCP - General Family Practice 01/02/14 [facility] [address] [place] [address] Joseph Quintana, Assigned Nephrology 03/29/21 MD Provider [address] [place] [address] [address] [place] [address] documented as of this encounter
--- OUTSIDE RECORDS SUMMARY | 2022-05-21 13:17 | XMS_ITS | Encounter Summary ---
:1950 Author Organization [place] Address [address] [place] [address] Care Team Providers Name Role Phone Momo Forbes Primary Care Provider Joseph Quintana MD Unavailable Encounter Details Date Type Department Care Team Description 12/09/2021 External Order [facility] Outside, Provide r Results Molecular Diagnostic s [address] [place] [address] Social History Tobacco Use Types Packs/Day Years [...] on filedocumented in this encounter Care Teams Hot Mill Shearer Relationship Specialty Start Date End Date Momo Forbes PCP - General Family Practice 01/02/14 [facility] [address] [place] [address] Joseph Quintana, Assigned Nephrology 03/29/21 Provider 717 [facility] 353 [facility] 1932 [place] [address] documented as of this encounter
--- OUTSIDE RECORDS SUMMARY | 2022-05-21 13:17 | XMS_ITS | Encounter Summary ---
:1950 Author Organization [place] Address [address] [place] [address] Care Team Providers Name Role Phone Momo Forbes Primary Care Provider Joseph Quintana MD Unavailable Reason for Visit Reason Onset Date Comments Transplant 09/22/2021 Encounter Details Date Type Department Care Team Description 09/22/[address] [facility] BOGDAN Nam [address] [place] [address] [phone] Social History Tobacco Use Types Packs/Day [...] Barbie Ugalde RN - 09/22/2021 2:16 PM PARADICHLOROBENZENE MACHINE OPERATOR Post discharge from [facility] 09/20/21; to rehab/TCU due to wound on stump; can't wear prosthetic until healed. UTI on Cephelaxin 500 mg TID. Katharine TCU Unit Phone [facility] [phone] Phone RN mgr Baker [phone] Discussed Prograf dose was 1.5 mg at hospital. Should be 1 mg AM/0.5 mg PM. Repeat level with BMP [facility] 09/24/21. Verbal orders taken by admissions. Barbie Crisostomo, RN, BSN Solid Organ Transplant, Post Kidney and Pancreas Transplant Acquisitions Logistics Analyst [phone] DICHLOROBENZENE MACHINE OPERATOR Telephone Encounter - Azael Rodriguez - 09/22/2021 12:09 PM CST Katharine under the new name [facility] TCU has questions regarding medicationsand lab. DICHLOROBENZENE MACHINE OPERATOR documented in this encounter Plan of Treatment Not on filedocumented as of this encounter Visit Diagnoses Not on filedocumented in this encounter Care Teams Molded Candles Wicker Relationship Specialty Start Date End Date Momo Forbes PCP - General Family Practice 01/02/14 [facility] 1999 [place] [address] Joseph Quintana, Assigned Nephrology 03/29/21 MD Provider [address] [place] [address] 1932 [place] [address] documented as of this encounter
--- OUTSIDE RECORDS SUMMARY | 2022-05-21 13:17 | XMS_ITS | Encounter Summary ---
:1950 Author Organization [place] Address [address] [place] [address]. [place] [address] Care Team Providers Name Role Phone Momo Forbes Primary Care Provider Joseph Quintana MD Unavailable Reason for Visit Reason Onset Date Comments Refill Request 08/25/2021 Prograf 0.5mg Encounter Details Date Type Department Care Team Description 08/25/[address] [facility] [place] Richey, Refil l Request (Prograf Transplant Clinic 0.5mg) [address] [place] [phone] Social History Tobacco Use Types [...] Encounter - Meghan Mccormack [facility] - 08/25/2021 2:15 PM CST Medication/Refill approved per CPA: [facility] COLLABORATIVE AGREEMENT FOR IMMUNOSUPPRESSENT PRESCRIPTION MODIFICATION. Routing encounter to Transplant as an FYI. 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
--- OUTSIDE RECORDS SUMMARY | 2022-05-21 13:17 | XMS_ITS | Encounter Summary ---
:1950 Author Organization [place] Address [facility] [place] [address] Care Team Providers Name Role Phone Momo Forbes Primary Care Provider Joseph Quintana MD Unavailable Reason for Visit Reason Onset Date Comments Transplant 01/21/2022 Hyperglycemia, eleva moni [facility] Encounter Details Date Type Department Care Team Description 01/21/2022 Telephone [facility] Gretta Peacock RN Trans plant Transplant Clinic (Hyperglycemia, elevated 9[address] [facility]) [place] [address] Social History Tobacco Use [...] 12:07 PM CDT ISSUE: trend up in [facility], hyperglycemia OUTCOME: phone call attempted X3. Will send letter via mail. Gretta Peacock RN Hospitality Director [phone] documented in this encounter Plan of Treatment Not on filedocumented as of this encounter Visit Diagnoses Not on filedocumented in this encounter Care Teams Surgical Nurse Relationship Specialty Start Date End Date Momo Forbes PCP - General Family Practice 01/02/14 [facility] [address] [place] [address] Joseph Quintana, Assigned Nephrology 03/29/21 MD Provider [address] [place] [address] 1932 [place] [address] documented as of this encounter
--- OUTSIDE RECORDS SUMMARY | 2022-05-21 13:17 | XMS_ITS | Clinical Summary ---
:1950 Author Organization [place] Address [facility] [place] [address] Care Team Providers Name Role Phone Momo [...] Problem list name updated by automated p Anygmaess. Provider to review Gout 12/02/2011 Peripheral neuropathy 12/02/2011 Diabetic retinopathy 12/02/2011 HTN, kidney transplant related 12/02/2011 Overview: Problem list name updated by automated p Anygmaess. Provider to review DM (diabetes mellitus), type 2 12/02/2011 History of tobacco use 12/02/2011 Thrombocytopenia 12/02/2011 Malaise and fatigue 12/02/2011 Overview: Problem list name updated by automated p Anygmaess. Provider to review Depression Resolved Problems Problem [...] Comments Blood Pressure 169/76 10/09/2019 2:35 PM GAUGE CONTROLLER Pulse 67 10/09/2019 2:35 PM GAUGE CONTROLLER Temperature 36.5 ??C (97.7 ??F) 10/17/2018 1:54 PM GAUGE CONTROLLER Respiratory Rate 18 10/25/2016 4:39 PM GAUGE CONTROLLER Oxygen Saturation 95% 10/09/2019 2:35 PM GAUGE CONTROLLER Inhaled Oxygen Concentration - - Weight 132.5 kg (292 lb 1.6 oz) 10/09/2019 2:35 PM GAUGE CONTROLLER Height 182.9 cm (6') 10/10/2017 2:25 PM GAUGE CONTROLLER Body Mass Index 39.62 10/10/2017 2:25 PM GAUGE CONTROLLER Plan of Treatment Health Maintenance Due Date [...] this topic Medical Devices Explanted Type Area Skelp Processor Device Shelf Model / Identifier Expiration Serial / Date Lot Stent Ureteral Childress Renal Transplant [id number] Right: [employer] 11/19/2016 [id number] / Implanted: Qty: 1 on 02/02/2014 by Migel Viveros MD at [facility] [employer] / Explanted: Qty: 1 on 04/01/2014 by Celina Helton MD at [facility] [id number] Procedures Procedure Name Priority Date/Time Associated Comments [...] Platelets & Differential (04/29/2022 11:40 AM CDT) [facility] gist Method Time Signature WBC Count [...] LAB - BLOOD ORDERABLES Performing Organization Address City/State/[facility] Code Phon e Number BREEZE PFT [...] LAB - URINE ORDERABLES Performing Organization Address [facility] [address]/[facility] Phon e Number BREEZE PFT NON-INTERFACED (ONBASE [...] Address T ype Group Dates MEDICARE MEDICARE [id number] 2011-Prese [phone] ATTN RONEN [place] Medicare nt 40 [address] [place] [address] BCBS BCBS OF [place] [id number] 2016-Prese [phone] [address] [address] Indemnity nt 00 [place] [address] Diego Guthrie Personal/Family Self [address] [place] (Home) [facility] [place] [address] Advance Directives For more information, please contact: [phone] Latest Code Status on File Code Status Date Activated Date Inactivated Comments Full Code 04/01/2014 9:03 AM Full Code 02/08/2014 7:12 AM 04/01/2014 9:03 AM Full Code 02/03/2014 12:56 AM 02/08/2014 7:12 AM Care Teams Flask Fitter Relationship Specialty Start Date End Date Momo Forbes PCP - General Family Practice 01/02/14 [facility] [address] [place] [address] Joseph Quintana, Assigned Nephrology 03/29/21 MD Provider [address] [place] [address] 1932 [place] [address]
--- OUTSIDE RECORDS SUMMARY | 2022-05-21 13:17 | XMS_ITS | Encounter Summary ---
:1950 Author Organization [place] Address [facility] [place] [address] Care Team Providers Name Role Phone Momo Forbes Primary Care Provider Joseph Quintana MD Unavailable Reason for Visit Reason Onset Date Comments Left Message To Call 05/06/2022 Left 05/06/2022 at 11:55PM., Wanted to discuss lab results Encounter Details Date Type Department Care Team Description 05/06/2022 Telephone [facility] Gretta Peacock RN Left Message To Call Transplant Clinic (Left 05/06/[address] [place] [address] SE 11:55PM., Wanted to [place], [place] discuss lab results) [phone] Social History [...] on filedocumented in this encounter Care Teams Application Dba Relationship Specialty Start Date End Date Momo Forbes PCP - General Family Practice 01/02/14 [facility] [address] [place] [address] Joseph Quintana, Assigned Nephrology 03/29/21 MD Provider 717 [facility] 353 [facility] 1932 [place] [address] documented as of this encounter
--- OUTSIDE RECORDS SUMMARY | 2022-05-21 13:18 | XMS_ITS | Encounter Summary ---
:1950 Author Organization [place] Address [facility] [place] [address] Care Team Providers Name Role Phone Momo Forbes Primary Care Provider Joseph Quintana MD Unavailable Encounter Details Date Type Department Care Team Description 07/08/[address] [facility] Outside, Provider Results Transplant Clinic [address] [place] [phone] Social History Tobacco Use Types Packs/Day [...] 9:23 AM Results f or this RESULTS RAISE DRILL OPERATOR procedure are i n the results section. documented in this encounter Results External Lab Results (07/08/2020 9:23 AM RAISE DRILL OPERATOR) Analysis Performed At Patho logist Time Signature Scan Lab View Image LABDE SCAN Results (External) Comment: HLA Antibody Screen, Class I an d Class II Specimen (Source) Anatomical Collection Method Collection Time Re ceived Time Location / / Volume Laterality 07/08/2020 9:23 AM RAISE DRILL OPERATOR Narrative [facility] P[facility] - 07/16/2020 2:42 PM RAISE DRILL OPERATOR Verified by Ruperto Pepper on 07/15/20 20. Patient Reported LABORATORY Performing Organization Address City/State/ZIP Code Phon e Number [facility] LABDE SCAN documented in this encounter Visit Diagnoses Not on filedocumented in this encounter Care Teams Automatic Lathe Tender Relationship Specialty Start Date End Date Momo Forbes PCP - General Family Practice 01/02/14 [facility] [address] [place] [address] Joseph Quintana, Assigned Nephrology 03/29/21 MD Provider [address] [place] [address] 1932 [place], [place] [address] documented as of this encounter
--- OUTSIDE RECORDS SUMMARY | 2022-05-21 13:18 | XMS_ITS | Encounter Summary ---
:1950 Author Organization [place] Address [facility] [place] [address] Care Team Providers Name Role Phone Momo Forbes Primary Care Provider Joseph Quintana MD Unavailable Encounter Details Date Type Department Care Team Description 01/07/2021 External Order [facility] Outside, Provider Results Transplant Clinic [address] [place] [phone] Social History Tobacco Use Types Packs/Day [...] on filedocumented in this encounter Care Teams Soils Analyst Relationship Specialty Start Date End Date Momo Forbes PCP - General Family Practice 01/02/14 [facility] [address] [place] [address] Joseph Quintana, Assigned Nephrology 03/29/21 MD Provider [address] [place] [address] [address] [place] [address] documented as of this encounter
--- OUTSIDE RECORDS SUMMARY | 2022-05-21 13:18 | XMS_ITS | Encounter Summary ---
:1950 Author Organization [place] Address [facility] [place] [address] Care Team Providers Name Role Phone Momo Forbes A Primary Care Provider Reason for Visit Reason Onset Date Comments Kidney Transplant 07/12/2019 Encounter Details Date Type Department Care Team Description 07/12/2019 Telephone [facility] Estefania Nguyen Transplant Transplant Clinic Amanda Fletcher RN [address] [place] [address] Social History Tobacco Use Types [...] left with instruction listed below. Order placed IFIED PROSTHETIST VICE PRESIDENT Telephone Encounter - Amanda Nguyen RN - 07/12/2019 12:23 PM CERTIFIED PROSTHETIST VICE PRESIDENT Clinic appt 07/17 at 4:45 Plan: Called patient to remind him of appt date/time. Asked that he complete labs prior to appt. CUSTOMER SERVICE SALES ASSOCIATE task: Please send one time lab order to complete all tx labs within the next week. IFIED PROSTHETIST VICE PRESIDENT documented in this encounter Plan of Treatment Not on filedocumented as of this encounter Visit Diagnoses Not on filedocumented in this encounter Care Teams Wood Preparation Supervisor Relationship Specialty Start Date End Date Momo Forbes PCP - General Family Practice 01/02/14 [facility] [address] [place] [address] documented as of this encounter
--- OUTSIDE RECORDS SUMMARY | 2022-05-21 13:18 | XMS_ITS | Encounter Summary ---
:1950 Author Organization [place] Address [facility] [address] Care Team Providers Name Role Phone Momo Forbes Primary Care Provider Joseph Quintana MD Unavailable Encounter Details Date Type Department Care Team Description 08/08/2020 External Order M [facility] Outside, Provider Results Transplant Clinic [address] [place] [phone] Social History Tobacco Use Types Packs/Day [...] 08/08/2020 11:43 Results f or this AM SURVEYING OR SPATIAL SCIENCE TECHNICIAN procedure are i n the results section. TACROLIMUS BY TANDEM Routine 08/08/2020 11:34 Res ults for this MASS SPECTROMETRY AM SURVEYING OR SPATIAL SCIENCE TECHNICIAN procedure are in the results section. LIPID PROFILE Routine 08/08/2020 11:34 Results fo r this AM SURVEYING OR SPATIAL SCIENCE TECHNICIAN procedure are i n the results section. ALT Routine 08/08/2020 11:34 Results for this AM SURVEYING OR SPATIAL SCIENCE TECHNICIAN procedure are i n the results section. BASIC METABOLIC PANEL Routine 08/08/2020 11:34 Re sults for this AM SURVEYING OR SPATIAL SCIENCE TECHNICIAN procedure are i n the results section. documented in this encounter Results (ABNORMAL) Hemoglobin A1c (08/08/2020 11:43 AM SURVEYING OR SPATIAL SCIENCE TECHNICIAN) Analysis Performed At Patho logist Time Signature Hemoglobin A1C 10.2 (H) <=6.9 % LABDE SCAN (External) Specimen (Source) Anatomical Collection Method Collection Time Re ceived Time Location / / Volume Laterality Blood specimen 08/08/2020 11:43 (specimen) AM SURVEYING OR SPATIAL SCIENCE TECHNICIAN Narrative [facility] - 08/11/2020 1:28 PM SURVEYING OR SPATIAL SCIENCE TECHNICIAN Verified by Praful Huff on 2019. Patient Reported LAB - BLOOD ORDERABLES Performing Organization Address City/State/ZIP Code Phon e Number [facility] LABDE SCAN Tacrolimus level (08/08/2020 11:34 AM SURVEYING OR SPATIAL SCIENCE TECHNICIAN) athologist Signature Tacrolimus(FK-5 11.7 See scan LABDE SCAN 06) (External) ng/mL Specimen (Source) Anatomical Collection Method Collection Time Re ceived Time Location / / Volume Laterality Blood specimen 08/08/2020 11:34 (specimen) AM SURVEYING OR SPATIAL SCIENCE TECHNICIAN Narrative [facility] - 08/11/2020 1:28 PM SURVEYING OR SPATIAL SCIENCE TECHNICIAN Verified by Praful Huff on 2019. Patient Reported LAB - BLOOD ORDERABLES Performing Organization Address City/State/ZIP Code Phon e Number [facility] LABDE SCAN (ABNORMAL) Lipid Profile (08/08/2020 11:34 AM SURVEYING OR SPATIAL SCIENCE TECHNICIAN) [employer] gist Method Time [...] Laterality Blood specimen 08/08/2020 11:34 (specimen) AM SURVEYING OR SPATIAL SCIENCE TECHNICIAN Narrative [facility] - 08/11/2020 1:28 PM SURVEYING OR SPATIAL SCIENCE TECHNICIAN Verified by Praful Huff on 2019. Patient Reported LAB - BLOOD ORDERABLES Performing Organization Address City/State/ZIP Code Phon e Number [facility] LABDE SCAN ALT (08/08/2020 11:34 AM SURVEYING OR SPATIAL SCIENCE TECHNICIAN) P athologist Signature ALT (External) 8 4 - 50 U/L LABDE SCAN Specimen (Source) Anatomical Collection Method Collection Time Re ceived Time Location / / Volume Laterality Blood specimen 08/08/2020 11:34 (specimen) AM SURVEYING OR SPATIAL SCIENCE TECHNICIAN Narrative [facility] - 08/11/2020 1:28 PM SURVEYING OR SPATIAL SCIENCE TECHNICIAN Verified by Praful Huff on 2019. Patient Reported LAB - BLOOD ORDERABLES Performing Organization Address City/State/ZIP Code Phon e Number [facility] LABDE SCAN (ABNORMAL) Basic metabolic panel (08/08/2020 11:34 AM SURVEYING OR SPATIAL SCIENCE TECHNICIAN) P athologist Signature Glucose 119 (H) [...] Laterality Blood specimen 08/08/2020 11:34 (specimen) AM SURVEYING OR SPATIAL SCIENCE TECHNICIAN Narrative [facility] - 08/11/2020 1:28 PM SURVEYING OR SPATIAL SCIENCE TECHNICIAN Verified by Praful Huff on 2019. Patient Reported LAB - BLOOD ORDERABLES Performing Organization Address City/State/ZIP Code Phon e Number [facility] LABDE SCAN documented in this encounter Visit Diagnoses Not on filedocumented in this encounter Care Teams Hydro Electric Station Operator Relationship Specialty Start Date End Date Momo Forbes PCP - General Family Practice 01/02/[address] [address] Joseph Quintana, Assigned Nephrology 03/29/21 MD Provider [address] [place] [address] documented as of this encounter
--- OUTSIDE RECORDS SUMMARY | 2022-05-21 13:18 | XMS_ITS | Encounter Summary ---
:1950 Author Organization [place] Address [facility] [place] [address] Care Team Providers Name Role Phone Momo Forbes Primary Care Provider Joseph Quintana MD Unavailable Encounter Details Date Type Department Care Team Description 05/26/2020 External Order M [facility] Outside, Provider Results Transplant Clinic [address] [place] [phone] Social History Tobacco Use Types Packs/Day [...] filedocumented in this encounter Care Teams Vending Service Technician Relationship Specialty Start Date End Date Momo Forbes PCP - General Family Practice 01/02/14 [facility] [address] [place] [address] Joseph Quintana, Assigned Nephrology 03/29/21 MD Provider 7 [facility] 353 [facility] [address] [place] [address] documented as of this encounter
--- OUTSIDE RECORDS SUMMARY | 2022-05-21 13:18 | XMS_ITS | Encounter Summary ---
:1950 Author Organization [place] Address [facility]0 [facility] [place] [address] Care Team Providers Name Role Phone Momo Forbes Primary Care Provider Joseph Quintana MD Unavailable Encounter Details Date Type Department Care Team Description 05/26/2020 External Order [facility] Outside, Provider Results Transplant Clinic [address] [place] [phone] Social History Tobacco Use Types Packs/Day [...] with platelets differential (05/26/2020 10:25 AM CDT) [facility] Method Time Signature WBC Count 4.49 (L) [...] filedocumented in this encounter Care Teams Training Designer Relationship Specialty Start Date End Date Momo Forbes PCP - General Family Practice 01/02/14 [facility] [address] [place] [address] Joseph Quintana, Assigned Nephrology 03/29/21 MD Provider 717 [facility] 353 [facility] [address] [place], [place] [address] documented as of this encounter
--- OUTSIDE RECORDS SUMMARY | 2022-05-21 13:18 | XMS_ITS | Encounter Summary ---
:1950 Author Organization [place] Address [facility]0 [facility] [place] [address] Care Team Providers Name Role Phone Momo Forbes A Primary Care Provider Reason for Visit Reason Onset Date Comments Transplant Immunosuppression Management 09/08/2020 Encounter Details Date Type Department Care Team Description 09/08/2020 Telephone [facility] Tram, Transplant Transplant Clinic Barbie Nam, Immunosuppression [address] [place] [address] [place] [phone] Social History Tobacco Use Types [...] Barbie Ugalde RN - 09/09/2020 3:06 PM COUNTER POCKET SEWER Second call placed to patient and voicemail message left. TER POCKET SEWER Telephone Encounter - Barbie Ugalde RN - 09/08/2020 10:31 AM COUNTER POCKET SEWER Images from the original note were not included. Message Received: 3 days ago Message Contents Beny Staton, [facility] Barbie Ugalde, BOGDAN ?? Latrell has not filled immunos since 07/21. ??His tacro dose changed and he has not filled the 0.5mg in over a year. ??He has not returned our calls. ?? Beny Staton [facility] ED Specialty Pharmacist [phone] OUTCOME: Tacrolimus dose was decreased from 2mg [...] he is currently taking and need labs. TER POCKET SEWER documented in this encounter Plan of Treatment Not on filedocumented as of this encounter Visit Diagnoses Not on filedocumented in this encounter Care Teams Straight Knife Machine Cutter Relationship Specialty Start Date End Date Momo Forbes PCP - General Family Practice 01/02/14 [place] [id number] documented as of this encounter
--- OUTSIDE RECORDS SUMMARY | 2022-05-21 13:18 | XMS_ITS | Encounter Summary ---
:1950 Author Organization [place] Address [address] [place] [address] Care Team Providers Name Role Phone Forbes, Ton Primary Care Provider Reason for Visit Reason Comments RECHECK Post kid tx f/u Encounter Details Date Type Department Care Team Description 10/09[facility]2019 [facility] [address] [facility] [address] [place] [address] Kidney transplanted (Primary Dx); Nephrology Clinic , Kidney/Pancreas Recipient Need for influenza vaccination; [place] HTN, kidney transplant relat ed; [address] [facility] Immunosupp ression (H); SE Skin cancer screening; [place], [place] Hypovitamino sis D [phone] Social History [...] Comments Blood Pressure 169/76 10/09/2019 2:35 PM PRESCHOOL TEACHER AIDE Pulse 67 10/09/2019 2:35 PM PRESCHOOL TEACHER AIDE Temperature - - Respiratory Rate - - Oxygen Saturation 95% 10/09/2019 2:35 PM PRESCHOOL TEACHER AIDE Inhaled Oxygen Concentration - - Weight 132.5 kg (292 lb 1.6 oz) 10/09/2019 2:35 PM PRESCHOOL TEACHER AIDE Height - - Body Mass Index 39.62 10/10/2017 2:25 PM PRESCHOOL TEACHER AIDE documented in this encounter Progress Notes Shiva [...] being entered into the official medical record. CHOOL TEACHER AIDE documented in this encounter Nursing Notes Josseline Recinos RN - 10/09/2019 2:45 PM CST Diego Sosa Siricyndie was seen today in clinic by this keno writer / runner. Medications, lab orders, lab frequency,and necessary follow up discussed with patient. Patient was provided with a copy of the current lab letter. Patient voiced understanding and agreement of education and plan. Josseline Recinos RN CHOOL TEACHER AIDE Jeanette Finley CMA - 10/09/2019 2:45 PM CST Chief Complaint Patient presents with ??? RECHECK Post kid tx f/u Blood pressure (!) 169/76, pulse 67, weight 132.5 kg (292 lb 1.6 oz), SpO2 95 %. Jeanette Finley CMA CHOOL TEACHER AIDE documented in this encounter Plan of Treatment [...] deficiency documented in this encounter Care Teams Wool Fleece Sorter Relationship Specialty Start Date End Date Momo Forbes PCP - General Family Practice 01/02/14 [facility] [address] [place] [address] documented as of this encounter
--- OUTSIDE RECORDS SUMMARY | 2022-05-21 13:18 | XMS_ITS | Encounter Summary ---
:1950 Author Organization [place] Address [facility] [place] [address] Care Team Providers Name Role Phone Momo Forbes Primary Care Provider Reason for Visit Reason Onset Date Comments Refill Request 03/18/2020 Mycophenolate and Pr ograf 1mg Encounter Details Date Type Department Care Team Description 03/18/2020 Refill [facility] Joseph Quintana Refill R equest Nephrology Clinic MD Herminio (Mycophenolate and [place] [address] [place] [address] SE Prograf 1mg) 909 [facility] 353 [facility] [address] [place], [place] [phone] Social History Tobacco Use Types Packs/Day Years [...] documented in this encounter Care Teams Legal Activity Adjudicator Relationship Specialty Start Date End Date Momo Forbes PCP - General Family Practice 01/02/14 [facility] [address] [place] [address] documented as of this encounter
--- OUTSIDE RECORDS SUMMARY | 2022-05-21 13:18 | XMS_ITS | Encounter Summary ---
:1950 Author Organization [place] Address [facility] 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 Per Dr. Presleynotblaze from visit in 10/09/19: # Diabetes: Poorly controlled (HbA1c >9%) Last HbA1c: 13.7%. - Management as per primary care. - Recommended all blood sugars stay below 200, with fasting between 90 and 130. ?? Latrell states that he lost his blood sugar meter but he can pick one up at [facility]. He asked how often he should [...] level. Latrell states he returns to 08/08. DING WHEEL DRESSER Telephone Encounter - Cristy Chen LPN - 07/08/2020 3:39 PM CST DATE: 07/08/2020 TIME OF RECEIPT FROM LAB: 3:30 PM LAB TEST: Glucose LAB VALUE: 407 RESULTS GIVEN WITH READ-BACK TO (PROVIDER): Barbie Ugalde RN TIME LAB VALUE REPORTED TO PROVIDER: 3:39 PM DING WHEEL DRESSER documented in this encounter Plan of Treatment Not on filedocumented as of this encounter Visit Diagnoses Not on filedocumented in this encounter Care Teams Liaison Inspection Laboratory Assistant Relationship Specialty Start Date End Date Momo Forbes PCP - General Family Practice 01/02/14 [facility] [address] [place] [address] documented as of this encounter
--- OUTSIDE RECORDS SUMMARY | 2022-05-21 13:18 | XMS_ITS | Encounter Summary ---
:1950 Author Organization [place] Address [facility]0 [facility] [place] [address] Care Team Providers Name Role Phone Momo Forbes Primary Care Provider Joseph Quintana MD Unavailable Encounter Details Date Type Department Care Team Description 04/30/[address] [facility] Outside, Provide r Results Molecular Diagnostic s [address] [place] [address] Social History Tobacco Use Types Packs/Day Years [...] Platelets & Differential (04/30/2021 11:20 AM CDT) [facility] gist Method Time Signature WBC Count 4.82 [...] on filedocumented in this encounter Care Teams Conveyor Tender Concrete Mixing Plant Relationship Specialty Start Date End Date Momo Forbes PCP - General Family Practice 01/02/14 [facility] [address] [place], [place] [id number] Joseph Quintana, Assigned Nephrology 03/29/21 MD Provider 717 [facility] 353 [facility] [address] [place] [address] documented as of this encounter
--- OUTSIDE RECORDS SUMMARY | 2022-05-21 13:18 | XMS_ITS | Encounter Summary ---
:1950 Author Organization [place] Address [facility] [address] Care Team Providers Name Role Phone oFrbes, Ton Primary Care Provider Reason for Visit Reason Onset Date Comments Kidney Transplant 05/20/2019 Encounter Details Date Type Department Care Team Description 05/20/2019 Telephone [facility] Estefania Nguyen Transplant Transplant Clinic Amanda Fletcher RN [address] [place] [phone] Social History Tobacco Use Types Packs/Day [...] not charted as 12 hour trough. ?? Plan/MACHINE ROPE MAKER task: ?? Please confirm timing of lab draw. If this was not a 12 hour level, please repeat labs in May and ensure 12 hour trough level with lab draw. Enter lab orders if needed Telephone Encounter - Amanda Nguyen RN - 05/20/2019 5:38 PM CDT Issue: Tac 4.6 - however this is not charted as 12 hour trough. Plan/MACHINE ROPE MAKER task: Please confirm timing of lab draw. If this was not a 12 hour level, please repeat labs in May and ensure 12 hour trough level with lab draw. Enter lab orders if needed. documented in this encounter Plan of Treatment Not on filedocumented as of this encounter Visit Diagnoses Not on filedocumented in this encounter Care Teams Surgeon Chief Relationship Specialty Start Date End Date Momo Forbes PCP - General Family Practice 01/02/14 [facility] [address] [place] [address] documented as of this encounter
--- OUTSIDE RECORDS SUMMARY | 2022-05-21 13:18 | XMS_ITS | Encounter Summary ---
:1950 Author Organization [place] Address [address] [place] [address]. [place] [address] Care Team Providers Name Role Phone Momo [...] on filedocumented in this encounter Care Teams Scarf Gluer Relationship Specialty Start Date End Date Momo Forbes PCP - General Family Practice 01/02/14 [facility] [address] [place] [address] documented as of this encounter
--- OUTSIDE RECORDS SUMMARY | 2022-05-21 13:18 | XMS_ITS | Encounter Summary ---
:1950 Author Organization [place] Address [address] [place] [address]. [place] [address] Care Team Providers Name Role Phone Momo Forbes Primary Care Provider Encounter Details Date Type Department Care Team Description 09/26/2019 Medical Correspondence [facility] Scan, BLOOD GLUCOSE LOG Health Info Mgmt Non-Provider Srvcs [address] [place] [phone] Social History Tobacco Use Types Packs/Day [...] on filedocumented in this encounter Care Teams Reflexologist Relationship Specialty Start Date End Date Momo Forbes PCP - General Family Practice 01/02/14 [facility] [address] [place] [address] documented as of this encounter
--- OUTSIDE RECORDS SUMMARY | 2022-05-21 13:18 | XMS_ITS | Encounter Summary ---
:1950 Author Organization [place] Address [address] [place] [address]. [place] [address] Care Team Providers Name Role Phone Momo Forbes A Primary Care Provider Reason for Visit Reason Onset Date Comments Transplant Immunosuppression Management 08/11/2020 Encounter Details Date Type Department Care Team Description 08/11/2020 [facility] Barbie Ugalde [facility] BOGDAN Nam Immunosuppression [address] [place] [address] [place] [address] Social History Tobacco Use Types [...] Barbie Ugalde RN - 08/11/2020 4:16 PM INTERNATIONAL FLIGHT ATTENDANT ISSUE: Tacrolimus IR level 11.7 on [...] Organ Transplant, Post Kidney and Pancreas Transplant Core Baker [phone] OUTCOME: Spoke with patient, they confirm accurate trough level and current dose 2 mg BID. Patient confirmed dose change to 1.5 mg BID and to repeat labs in 1 weeks. Orders sent to preferred pharmacy for dose change and lab for repeat labs. Patient voiced understanding of plan. RNATIONAL FLIGHT ATTENDANT documented in this encounter Plan of Treatment Not on filedocumented as of this encounter Visit Diagnoses Diagnosis Kidney transplanted - Primary Kidney replaced by transplant -donor kidney transplant recipie nt Kidney replaced by transplant documented in this encounter Care Teams Renewable Energy Trader Relationship Specialty Start Date End Date Momo Forbes PCP - General Family Practice 01/02/[address] [address] documented as of this encounter
--- OUTSIDE RECORDS SUMMARY | 2022-05-21 13:18 | XMS_ITS | Encounter Summary ---
:1950 Author Organization [place] Address [facility] [place] [address] Care Team Providers Name Role Phone Momo Forbes Primary Care Provider Joseph Quintana MD Unavailable Encounter Details Date Type Department Care Team Description 07/08/2020 External Order [facility] Outside, Provider Results Transplant Clinic [address] [place] [phone] Social History Tobacco Use Types Packs/Day [...] 9:23 AM R esults for this DIFFERENTIAL MATERIAL DISPOSITION INSPECTOR procedure are i n the results section. TACROLIMUS BY TANDEM Routine 07/08/2020 9:23 AM R esults for this MASS SPECTROMETRY MATERIAL DISPOSITION INSPECTOR procedure are in the results section. PROTEIN RANDOM URINE Routine 07/08/2020 9:23 AM R esults for this MATERIAL DISPOSITION INSPECTOR procedure are i n the results section. HEMOGLOBIN A1C Routine 07/08/2020 9:23 AM Results for this MATERIAL DISPOSITION INSPECTOR procedure are i n the results section. HEMOGLOBIN A1C Routine 07/08/2020 9:23 AM Results for this MATERIAL DISPOSITION INSPECTOR procedure are i n the results section. BASIC METABOLIC PANEL Routine 07/08/2020 9:23 AM Results for this MATERIAL DISPOSITION INSPECTOR procedure are i n the results section. documented in this encounter Results (ABNORMAL) Protein random urine with Creat Ratio (07/08/2020 9:23 AM MATERIAL DISPOSITION INSPECTOR) Analysis Performed At Patho logist Time Signature Protein Random 73 mg/dL LABDE SCAN Urine (External) Creatinine 65 mg/dL LABDE SCAN Urine mg/dL (External) Protein Total 1.12 (H) 0 - 0.19 LABDE SCAN Ur per Cr (External) Specimen (Source) Anatomical Collection Method Collection Time Re ceived Time Location / / Volume Laterality Urine specimen 07/08/2020 9:23 AM (specimen) MATERIAL DISPOSITION INSPECTOR Narrative [facility] - 07/11/2020 11:13 AM MATERIAL DISPOSITION INSPECTOR Verified by Praful Huff on 2019. Patient Reported LAB - URINE ORDERABLES Performing Organization Address City/State/ZIP Code Phon e Number [facility] LABDE SCAN (ABNORMAL) Hemoglobin A1c (07/08/2020 9:23 AM MATERIAL DISPOSITION INSPECTOR) Analysis Performed At Patho logist Time Signature Hemoglobin A1C 12.3 (H) 0 - 5.6 % LABDE SCAN (External) Specimen (Source) Anatomical Collection Method Collection Time Re ceived Time Location / / Volume Laterality Blood specimen 07/08/2020 9:23 AM (specimen) MATERIAL DISPOSITION INSPECTOR Narrative [facility] - 07/11/2020 11:13 AM MATERIAL DISPOSITION INSPECTOR Verified by Praful Huff on 2019. Patient Reported LAB - BLOOD ORDERABLES Performing Organization Address City/State/ZIP Code Phon e Number [facility] LABDE SCAN Tacrolimus level (07/08/2020 9:23 AM MATERIAL DISPOSITION INSPECTOR) P athologist Signature Tacrolimus(FK- 2.2 See scanned LABDE SCAN 506) report ng/mL (External) Specimen (Source) Anatomical Collection Method Collection Time Re ceived Time Location / / Volume Laterality Blood specimen 07/08/2020 9:23 AM (specimen) MATERIAL DISPOSITION INSPECTOR Narrative [facility] - 07/11/2020 11:13 AM MATERIAL DISPOSITION INSPECTOR Verified by Praful Huff on 2019. Patient Reported LAB - BLOOD ORDERABLES Performing Organization Address City/State/ZIP Code Phon e Number [facility] LABDE SCAN (ABNORMAL) Hemoglobin A1c (07/08/2020 9:23 AM MATERIAL DISPOSITION INSPECTOR) Analysis Performed At [facility] logist Time Signature Hemoglobin A1C 12.3 (H) 0 - 5.6 % LABDE SCAN (External) Specimen (Source) Anatomical Collection Method Collection Time Re ceived Time Location / / Volume Laterality Blood specimen 07/08/2020 9:23 AM (specimen) MATERIAL DISPOSITION INSPECTOR Narrative [facility] - 07/09/2020 11:03 AM MATERIAL DISPOSITION INSPECTOR Verified by Andrade Barajas on 07/09/2020. Patient Reported LAB - BLOOD ORDERABLES Performing Organization Address [facility] Phon e Number [facility] LABDE SCAN (ABNORMAL) Basic metabolic panel (07/08/2020 9:23 AM MATERIAL DISPOSITION INSPECTOR) Analysis Performed At [facility] logist Time Signature Calcium 10.1 8.4 [...] Laterality Blood specimen 07/08/2020 9:23 AM (specimen) MATERIAL DISPOSITION INSPECTOR Narrative [facility] - 07/09/2020 11:02 AM MATERIAL DISPOSITION INSPECTOR Verified by Andrade Barajas on 07/09/2020. Patient Reported LAB - BLOOD ORDERABLES Performing Organization Address City/[facility]/ZIP Code Phon e Number [facility] LABDE SCAN (ABNORMAL) CBC with platelets differential (07/08/2020 9:23 AM MATERIAL DISPOSITION INSPECTOR) [facility] gist Method Time Signature [...] Laterality Blood specimen 07/08/2020 9:23 AM (specimen) MATERIAL DISPOSITION INSPECTOR Narrative [facility] - 07/09/2020 10:52 AM MATERIAL DISPOSITION INSPECTOR Verified by Praful Huff on 2019. Patient Reported LAB - BLOOD ORDERABLES Performing Organization Address City/State/ZIP Code Phon e Number [facility] LABDE SCAN documented in this encounter Visit Diagnoses Not on filedocumented in this encounter Care Teams Light Armored Vehicle Officer Relationship Specialty Start Date End Date Momo Forbes PCP - General Family Practice 01/02/14 [facility] [address] [place] [address] Joseph Quintana, Assigned Nephrology 03/29/21 MD Provider [address] [place] [address] [address] [place], [place] [address] documented as of this encounter
--- OUTSIDE RECORDS SUMMARY | 2022-05-21 13:18 | XMS_ITS | Encounter Summary ---
:1950 Author Organization [place] Address [facility] [place] [address] Care Team Providers Name Role Phone Momo Forbes Primary Care Provider Reason for Visit Reason Onset Date Comments Refill Request 05/07/2020 Mycophenplate and Pr ograf Encounter Details Date Type Department Care Team Description 05/07/2020 Refill M [facility], Joseph Refill R equest Nephrology Clinic MD Herminio (Mycophenplate and [address] Prograf) [address] [place] [phone] Social History Tobacco Use Types Packs/Day Years [...] documented in this encounter Care Teams Supervisor [employer] Relationship Specialty Start Date End Date Momo Forbes PCP - General Family Practice 01/02/14 [facility] [address] [place] [address] documented as of this encounter
--- OUTSIDE RECORDS SUMMARY | 2022-05-21 13:18 | XMS_ITS | Encounter Summary ---
:1950 Author Organization [place] Address [facility] [place] [address] Care Team Providers Name Role Phone Momo Forbes A Primary Care Provider Reason for Visit Reason Comments Clinic Care Coordination - Follow-up Encounter Details Date Type Department Care Team Description 10/25/2019 Care Coordination [facility] Sejal Rodriguez Care Nephrology Clinic BOGDAN Llanos Coordination - [place] [phone] Follow-up 9 [facility] (Work) [place] [address] Social History Tobacco Use Types [...] back (follow up BP). Romi Rodriguez RN T ARMORED RECONNAISSANCE OFFICER Romi Rodriguez RN - 10/25/2019 10:15 [...] further questions or concerns. Romi Rodriguez, BOGDAN T ARMORED RECONNAISSANCE OFFICER documented in this encounter Plan of Treatment Not on filedocumented as of this encounter Visit Diagnoses Not on filedocumented in this encounter Care Teams Structural Steel Engineer Relationship Specialty Start Date End Date Momo Forbes PCP - General Family Practice 01/02/14 [facility] [address] [place] [address] documented as of this encounter
--- OUTSIDE RECORDS SUMMARY | 2022-05-21 13:18 | XMS_ITS | Encounter Summary ---
:1950 Author Organization [place] Address [facility] [place] [address] Care Team Providers Name Role Phone Momo Forbes A Primary Care Provider Reason for Visit Reason Onset Date Comments Transplant Immunosuppression Management 07/03/2020 Late to refill Encounter Details Date Type Department Care Team Description 07/03/2020 Telephone [facility] Tr[facility], Transplant Transplant Clinic Barbie Nam, Immunosuppression [address] [place] [address] RN Management (Late to [place], [place] refill) [phone] Social History Tobacco Use [...] Barbie Ugalde, BOGDAN - 07/03/2020 10:20 AM WAD COMPRESSOR OPERATOR ADJUSTER Images from the original note were not [...] copy to patient so he is aware. COMPRESSOR OPERATOR ADJUSTER documented in this encounter Plan of Treatment Not on filedocumented as of this encounter Visit Diagnoses Diagnosis -donor kidney transplant recipie nt Kidney replaced by transplant Kidney transplanted Kidney replaced by transplant documented in this encounter Care Teams Director Industrial Museum Relationship Specialty Start Date End Date Momo Forbes PCP - General Family Practice 01/02/14 [place] [address] documented as of this encounter
--- OUTSIDE RECORDS SUMMARY | 2022-05-21 13:18 | XMS_ITS | Encounter Summary ---
:1950 Author Organization [place] Address [address] [place] [address]. [place] [address] Care Team Providers Name Role Phone Momo Forbes Primary Care Provider Reason for Visit Reason Onset Date Comments Refill Request 02/04/2020 prograf, mycophenola te Encounter Details Date Type Department Care Team Description 02/04/2020 Refill [facility], Joseph Refill R equest Transplant Clinic MD Herminio (prograf, [address] [facility] [address] [facility] mycophenolate) [facility] [address] [facility] [address] [phone] [place] [address] (Wo rk) Social History Tobacco [...] transplant documented in this encounter Care Teams Final Application Reviewer Relationship Specialty Start Date End Date Momo Forbes PCP - General Family Practice 01/02/14 [facility] [address] [place] [address] documented as of this encounter
--- OUTSIDE RECORDS SUMMARY | 2022-05-21 13:18 | XMS_ITS | Encounter Summary ---
:1950 Author Organization [place] Address [facility] [place] [address] Care Team Providers Name Role Phone Momo Forbes Primary Care Provider Joseph Quintana MD Unavailable Encounter Details Date Type Department Care Team Description 02/02/[address] [facility] Outside, Provider Results Transplant Clinic [address] [place] [phone] Social History Tobacco Use Types Packs/Day [...] by Cassie Florian on 02/04/2021. Performed by: [facility] [address] [place], [place] ??[address] Patient Reported LABORATORY Performing Organization Address City/State/ZIP Code Phon e Number [facility] COVID-19 EXTERNAL COVID-[address] RESULTS Result Scanned into Patient Record by Scurri Refer to Result Comment/Narrative for exact performing laboratory documented in this encounter Visit Diagnoses Not on filedocumented in this encounter Care Teams Bilingual Legal Assistant Relationship Specialty Start Date End Date Momo Forbes PCP - General Family Practice 01/02/14 [facility] [address] [place] [address] Joseph Quintana, Assigned Nephrology 03/29/21 MD Provider 717 [facility] 353 [facility] [address] [place] [address] documented as of this encounter
--- OUTSIDE RECORDS SUMMARY | 2022-05-21 13:18 | XMS_ITS | Encounter Summary ---
:1950 Author Organization [place] Address [address] [facility] [place] [address] Care Team Providers Name Role Phone Forbes, Ton Primary Care Provider Reason for Visit Reason Comments RECHECK Follow Up [place] Encounter Details Date Type Department Care Team Description 03/05/2021 Virtual Visit [facility] Joseph Quintana HTN, ki dney transplant related (Primary Dx); Nephrology Clinic MD Herminio Kidney replaced by transplant; [address] Aftercare following organ tr ansplant; [address] [place] [address] SE RANJAN [address] [facility] Immunosu ppression (H); [address] Vitamin D deficiency; [place] [phone] Social History Tobacco Use Types Packs/Day Years [...] would you like to be contacted at? [phone] How would you like to obtain your [...] and ended up being discharged to a skilled nursing. He is doing better and now back [...] unspecified documented in this encounter Care Teams Electronics Tech Relationship Specialty Start Date End Date Momo Forbes PCP - General Family Practice 01/02/14 [facility] [address] [place] [address] documented as of this encounter
--- OUTSIDE RECORDS SUMMARY | 2022-05-21 13:18 | XMS_ITS | Encounter Summary ---
:1950 Author Organization [place] Address [address] [place] [address]. [place] [address] Care Team Providers Name Role Phone Momo [...] filedocumented in this encounter Care Teams Circus Hand Relationship Specialty Start Date End Date Momo Forbes PCP - General Family Practice 01/02/14 [facility] [address] [place] [address] documented as of this encounter
--- OUTSIDE RECORDS SUMMARY | 2022-05-21 13:18 | XMS_ITS | Encounter Summary ---
:1950 Author Organization [place] Address [facility]0 [facility] [place] [address] Care Team Providers Name Role Phone Momo Forbes Primary Care Provider Encounter Details Date Type Department Care Team Description 10/09/2019 Orders Only [facility] Transplant Mati Recinos RN Clinic [address] [place], [place] [phone] Social History Tobacco Use Types Packs/Day [...] CST Orders updated. Faxed to new lab: [facility] T [phone] F [phone] A ANALYST documented in this encounter Plan of Treatment Not on filedocumented as of this encounter Visit Diagnoses Not on filedocumented in this encounter Care Teams Roller Print Tender Relationship Specialty Start Date End Date Forbes, Ton PCP - General Family Practice 01/02/14 [facility] [address] [place] [address] documented as of this encounter
--- OUTSIDE RECORDS SUMMARY | 2022-05-21 13:18 | XMS_ITS | Encounter Summary ---
:1950 Author Organization [place] Address [facility] [place] [address] Care Team Providers Name Role Phone Momo Forbes A Primary Care Provider Reason for Visit Reason Onset Date Comments Transplant Lab 05/28/2020 Encounter Details Date Type Department Care Team Description 05/28/2020 Telephone [facility] Barbie Ugalde Tra nsplant Lab Transplant Clinic BOGDAN Nam [address] [place] [phone] Social History Tobacco Use Types Packs/Day [...] mg/dL on 05/26/20 at 1025 collected at [facility] [phone] (Phone) CBC appears as expected Missing BMP [...] filedocumented in this encounter Care Teams Labor Arbitrator Relationship Specialty Start Date End Date Momo Forbes PCP - General Family Practice 01/02/14 [facility] [address] [place] [address] documented as of this encounter
--- OUTSIDE RECORDS SUMMARY | 2022-05-21 13:18 | XMS_ITS | Encounter Summary ---
:1950 Author Organization [place] Address [facility]0 [facility] [place] [address] Care Team Providers Name Role Phone ForbesMomo Primary Care Provider Reason for Visit Reason Onset Date Comments Transplant 10/23/2020 Encounter Details Date Type Department Care Team Description 10/23/2020 Telephone [facility] BOGDAN Nam [address] [place] [phone] Social History Tobacco Use Types Packs/Day [...] Barbie Ugalde RN - 10/23/2020 1:10 PM PULL THROUGH HOOKER Latrell reports his labs were done yesterday morning at [facility]. Last night ended upat ER at [facility]. Hospital printed out copy of labs and he is worried about creatinine. Latrell states he had R foot infection that needed to be cleaned out; Had surgery last day of August onfoot at [facility]. Was hospitalized 10 days before going to long-term for recovery. Last night his blood sugar was dropping low into 70s and long-term staff thought his BP was jumping around to much. This morning is BP 130/76, but last night 170s. Explained to Latrell that it has been a year since lastnephrology appointment and he needs to be seen for transplant follow up. He agreed but did not want to schedule at this time but will call back to schedule. Call placed to [facility] lab to fax results. Per Lab need to speak with information management department to release records or go thru [facility] to have orders faxed. Call then [...] and repeating post-transplant labs in 1-2 weeks. THROUGH HOOKER Telephone Encounter - Tasia Mack - 10/23/2020 10:03 AM CST Patient Call: Transplant Lab/Orders Route to FURNACE TAPPER Post Transplant Days: 2455 When patient is less than 60 days post-transplant, route high priority Reason for Call: Discuss lab results; which results? creatine level Callback needed? Yes Return Call Needed Same as documented in contacts section When to return call?: Greater than one day: Route standard priority THROUGH HOOKER documented in this encounter Plan of Treatment Not on filedocumented as of this encounter Visit Diagnoses Not on filedocumented in this encounter Care Teams Shadow Graph Weight Operator Relationship Specialty Start Date End Date Momo Forbes PCP - General Family Practice 01/02/14 [facility] [address] [place] [address] documented as of this encounter
--- OUTSIDE RECORDS SUMMARY | 2022-05-21 13:18 | XMS_ITS | Encounter Summary ---
:1950 Author Organization [place] Address [address] [place] [address]. [place] [address] Care Team Providers Name Role Phone Momo [...] on filedocumented in this encounter Care Teams Relay Adjuster Relationship Specialty Start Date End Date Momo Forbes PCP - General Family Practice 01/02/14 [facility] [address] [place] [address] documented as of this encounter
--- OUTSIDE RECORDS SUMMARY | 2022-05-21 13:18 | XMS_ITS | Encounter Summary ---
:1950 Author Organization [place] Address [facility] [place] [address] Care Team Providers Name Role Phone Momo Forbes A Primary Care Provider Reason for Visit Reason Onset Date Comments Transplant 02/03/2021 spoke w pt and donna vallejoed annual neph appt on 03/05/21 Encounter Details Date Type Department Care Team Description 02/03/2021 Telephone [facility] Barbie Ugaldelanlynda (spoke w pt Transplant Clinic BOGDAN Nam and confirmed annual 9[address] [facility] neph appt on 03/05/21) [place] [address] Social History Tobacco Use Types [...] on filedocumented in this encounter Care Teams Instrument Repair Specialist Relationship Specialty Start Date End Date Momo Forbes PCP - General Family Practice 01/02/14 [facility] [address] [place] [address] documented as of this encounter
--- OUTSIDE RECORDS SUMMARY | 2022-05-21 13:18 | XMS_ITS | Encounter Summary ---
:1950 Author Organization [place] Address [address] [place] [address] Care Team Providers Name Role Phone oMmo Forbes Primary Care Provider Joseph Quintana MD Unavailable Reason for Visit Reason Onset Date Comments Transplant Lab 05/04/2021 Encounter Details Date Type Department Care Team Description 05/04/2021 Telephone [facility] Transplant Krys Garcia, Transplant Lab Clinic RN [address] [place] [phone] Social History Tobacco Use Types [...] maroon colored stools. he had colonoscopy with [facility] about a year ago. Appears in CareEverywhere colonoscopy was 03/20/2015. Latrell denies infectious symptoms currently but reports he had R foot surgery at [place] this last winter for diabetic foot ulcer. Infection in bottom of foot; laid up since Sep. Pretty well healed except a little speck. Follows up with Dr. Chatterjee. Will check iron panel on next labs. Orders sent. Barbie Ugalde RN, BSN Solid Organ Transplant, Post Kidney and Pancreas Transplant Employment And Claims Aide [phone] Telephone Encounter - Krys Garcia RN - 05/04/2021 8:09 AM CDT ISSUE: Falling hemoglobin. documented in this encounter Plan of Treatment Not on filedocumented as of this encounter Visit Diagnoses Not on filedocumented in this encounter Care Teams Stone Finisher Relationship Specialty Start Date End Date Momo Forbes PCP - General Family Practice 01/02/14 [facility] [address] [place] [address] Joseph Quintana, Assigned Nephrology 03/29/21 MD Provider 717 [facility] 353 [facility] [address] [place] [address] documented as of this encounter
--- OUTSIDE RECORDS SUMMARY | 2022-05-21 13:18 | XMS_ITS | Encounter Summary ---
:1950 Author Organization [place] Address [address] [place] [address]. [place] [address] Care Team Providers Name Role Phone Momo [...] filedocumented in this encounter Care Teams Commercial Coordinator Relationship Specialty Start Date End Date Momo Forbes PCP - General Family Practice 01/02/14 [facility] [address] [place] [address] documented as of this encounter
--- OUTSIDE RECORDS SUMMARY | 2022-05-21 13:18 | XMS_ITS | Encounter Summary ---
:1950 Author Organization [place] Address [facility] [place] [address] Care Team Providers Name Role Phone Forbes, Momo He Primary Care Provider Encounter Details Date Type Department Care Team Description 10/23/2020 Telephone [facility] Barbie Ugalde Transplant Clinic BGODAN Nam 9[address] [place], [place] [phone] Social History Tobacco Use [...] Barbie Ugalde RN - 10/23/2020 4:27 PM SHAREPOINT SPECIALIST Returned call and left second voicemail message. Patient mentioned in previous phone call he was interested in donating his body upon passing to [facility] for science. Please sent to following website for more information: [email or web address]/research/rqqossh-odaaqtb-uisouhe/how-donate EPOINT SPECIALIST Telephone Encounter - Gladis Sosa RN - 10/23/2020 3:21 PM CST Patient Call: Voicemail Date/Time: 10/23/20 139pm Reason for call: Patient left a message requesting a call back EPOINT SPECIALIST documented in this encounter Plan of Treatment Not on filedocumented as of this encounter Visit Diagnoses Not on filedocumented in this encounter Care Teams Infantryman Relationship Specialty Start Date End Date Momo Forbes PCP - General Family Practice 01/02/14 [facility] [address] [place] [address] documented as of this encounter
--- OUTSIDE RECORDS SUMMARY | 2022-05-21 13:18 | XMS_ITS | Encounter Summary ---
:1950 Author Organization [place] Address [facility] [place] [address] Care Team Providers Name Role Phone ForbesMomo Primary Care Provider Reason for Visit Reason Comments Clinic Care Coordination - Follow-up Encounter Details Date Type Department Care Team Description 11/16/2019 Care Coordination [facility] Sejal Rodriguez Care Nephrology Clinic BOGDAN Llanos Coordination - [place] [phone] Follow-up [address] [place] [address] (Work) [place] [address] Social History Tobacco Use Types [...] filedocumented in this encounter Care Teams Back Padder Relationship Specialty Start Date End Date Momo Forbes PCP - General Family Practice 01/02/14 [facility] [address] [place] [address] documented as of this encounter
--- OUTSIDE RECORDS SUMMARY | 2022-05-21 13:18 | XMS_ITS | Encounter Summary ---
:1950 Author Organization [place] Address [facility] [place] [address] Care Team Providers Name Role Phone Momo Forbes A Primary Care Provider Encounter Details Date Type Department Care Team Description 01/30/2021 Telephone [facility] Transplant Viv Torres, BOGDAN [place] [phone] Social History Tobacco Use Types Packs/Day [...] not included. Message Received: Today Beny Staton, [facility] Barbie Ugalde, RN Diego has not ordered tacro 0.5mg in over a year. ??He just ordered 1mg today but not the 0.5mg. Beny Staton [facility] Specialty Pharmacist [phone] VIDEO PRODUCTION ENGINEER task: Can you please call Diego to find out what dose of tacrolimus he is taking and notify coordinator if different than what is prescribed. Recommend repeat tacrolimus level for previously elevated level 7.3, goal 4-6. Thank you, Barbie Ugalde RN, BSN Solid Organ Transplant, Post Kidney and Pancreas Transplant Biomedical Engineering Technologist [phone] Telephone Encounter - Viv Torres RN - [...] transplant documented in this encounter Care Teams Polisher Sand Relationship Specialty Start Date End Date Momo Forbes PCP - General Family Practice 01/02/14 [facility] [address] [place] [id number] documented as of this encounter
--- OUTSIDE RECORDS SUMMARY | 2022-05-21 13:18 | XMS_ITS | Encounter Summary ---
:1950 Author Organization [place] Address [facility] [place] [address] Care Team Providers Name Role Phone Momo Forbes A Primary Care Provider Reason for Visit Reason Onset Date Comments Transplant Lab 01/29/2020 overdue labs Encounter Details Date Type Department Care Team Description 01/29/2020 Telephone [facility] Barbie Ugalde Tra nsplant Lab Transplant Clinic BOGDAN Nam (overdue labs) [address] [place] [phone] Social History Tobacco Use Types Packs/Day [...] a kit for blood work sent to [facility] as requested. Explained kits are no longer being used for drug levels but new orders could be sent to lab if needed. [facility] [phone] (Phone) [facility] has annual order on file sent September 2019 and can fax to their new [facility] location that opened 2 weeks ago. Patient seen provider in [facility] who meryl Hemoglobin A1C and BMP [...] on filedocumented in this encounter Care Teams Gut Puller Relationship Specialty Start Date End Date Momo Forbes PCP - General Family Practice 01/02/14 [facility] [address] [place] [address] documented as of this encounter
--- OUTSIDE RECORDS SUMMARY | 2022-05-21 13:18 | XMS_ITS | Encounter Summary ---
:1950 Author Organization [place] Address [facility] [place] [address] Care Team Providers Name Role Phone Momo Forbes Primary Care Provider Joseph Quintana MD Unavailable Encounter Details Date Type Department Care Team Description 01/27/2021 External Order [facility] Outside, Provider Results Transplant Clinic [address] [place] [address] Social History Tobacco Use Types [...] Basic metabolic panel (01/27/2021 11:45 AM CDT) [facility] gist Method Time Signature Glucose 156 [...] with platelets differential (01/27/2021 11:45 AM CDT) [facility] gist Method Time Signature WBC [...] this encounter Care Teams Well Drill Operator Relationship Specialty Start Date End Date Momo Forbes PCP - General Family Practice 01/02/14 [facility] [address] [place] [address] Joseph Quintana, Assigned Nephrology 03/29/[address] [place] [address] [address] [place] [address] documented as of this encounter
--- OUTSIDE RECORDS SUMMARY | 2022-05-21 13:18 | XMS_ITS | Encounter Summary ---
:1950 Author Organization [place] Address [facility] [place] [address] Care Team Providers Name Role Phone Momo Forbes Primary Care Provider Reason for Visit Reason Onset Date Comments Transplant 01/07/2021 Encounter Details Date Type Department Care Team Description 01/07/2021 Telephone [facility] Barbie Ugaldelanlynda Transplant Clinic BOGDAN Nam [address] [place] [address] [phone] Social History Tobacco Use Types Packs/Day [...] CDT Patient Call: Transplant Lab/Orders Route to ANGULAR DEVELOPER Post Transplant Days: 2530 When patient is less than 60 days post-transplant, route high priority Reason for Call: Annual lab reorder fax labs to [facility] lab at [phone] Labs drawn Waiting fororders Callback needed? No documented in this encounter Plan of Treatment Not on filedocumented as of this encounter Visit Diagnoses Not on filedocumented in this encounter Care Teams Hand Cultivator Relationship Specialty Start Date End Date Momo Forbes PCP - General Family Practice 01/02/14 [facility] [address] [place] [address] documented as of this encounter
--- OUTSIDE RECORDS SUMMARY | 2022-05-21 13:18 | XMS_ITS | Encounter Summary ---
:1950 Author Organization [place] Address [address] [place] [address]. [place] [address] Care Team Providers Name Role Phone Momo Forbes Primary Care Provider Encounter Details Date Type Department Care Team Description 09/25/2019 Medical Correspondence [facility] Scan, PATIENT BLOOD Health Info Mgmt Non-Provider GLUCOSE SIVAKUMAR ALLAN [facility] [address] [place] [phone] Social History Tobacco Use Types Packs/Day [...] on filedocumented in this encounter Care Teams Spice Room Worker Relationship Specialty Start Date End Date Momo Forbes PCP - General Family Practice 01/02/14 [facility] [address] [place] [address] documented as of this encounter
--- OUTSIDE RECORDS SUMMARY | 2022-05-21 13:18 | XMS_ITS | Encounter Summary ---
:1950 Author Organization [place] Address [facility] [place] [address] Care Team Providers Name Role Phone ForbesMomo prakash A Primary Care Provider Reason for Visit Reason Onset Date Comments Transplant 07/11/2020 Encounter Details Date Type Department Care Team Description 07/11/2020 Telephone [facility] BOGDAN Nam [address] [place] [address] [phone] Social History Tobacco Use Types Packs/Day [...] Barbie Ugalde RN - 07/11/2020 2:11 PM UPHOLSTERER LIMOUSINE AND HEARSE ISSUE: Potassium 5.2 on 07/08/20. PLAN: Assess for high dietary intake of potassium. Encouraged Diego to reduce the amount of bananas and potatoes he admitted to eating high amounts of. OUTCOME: Please have pt repeat BMP in 1 week. Orders sent LSTERER LIMOUSINE AND HEARSE Telephone Encounter - Babrie Ugalde RN - 07/11/2020 1:41 PM UPHOLSTERER LIMOUSINE AND HEARSE ISSUE: Tacrolimus IR level 2.2 on 07/08/20 [...] for repeatlabs. Patient voiced understanding of plan. 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
--- OUTSIDE RECORDS SUMMARY | 2022-05-21 13:19 | XMS_ITS | Encounter Summary ---
:1950 Author Organization [place] Address [facility] [place] [address] Care Team Providers Name Role Phone Forbes, Ton Primary Care Provider Reason for Visit Reason Onset Date Comments Transplant Lab 05/16/2019 Encounter Details Date Type Department Care Team Description 05/16/2019 Telephone [facility] Sudhir Fields Trans plant Lab Transplant Clinic Amanda Fletcher RN [address] [place] [phone] Social History Tobacco Use Types Packs/Day [...] CDT Provider Call: Transplant Lab/Orders Route to STREET VENDOR Post Transplant Days: 1929 When patient is less than 60 days post-transplant, route high priority Reason for Call: updated lab order faxed Liver patients reporting abnormal lab results: Route to RN and Page Document lab facility information when provider is calling about annual lab orders. Delete facility wildcards when not needed. Facility Name: [facility] Location: [place], [place] Outside Facility Callback needed? If needed documented in this encounter Plan of Treatment Not on filedocumented as of this encounter Visit Diagnoses Diagnosis Kidney replaced by transplant - Primary Aftercare following organ transplant Encounter for long-term current use of m edication documented in this encounter Care Teams Manager Of Environmental Services Relationship Specialty Start Date End Date Momo Forbes PCP - General Family Practice 01/02/14 [facility] [address] [place] [address] documented as of this encounter
--- OUTSIDE RECORDS SUMMARY | 2022-05-21 13:19 | XMS_ITS | Encounter Summary ---
:1950 Author Organization [place] Address [address] [place] [address]. [place] [address] Care Team Providers Name Role Phone Momo Forbes Primary Care Provider Reason for Visit Reason Onset Date Comments Refill Request 02/28/2019 Encounter Details Date Type Department Care Team Description 02/28/2019 Refill [facility] Shiva Presley MD Refill Request Nephrology Clinic [facility] [place] [address] [phone] Social History Tobacco Use Types Packs/Day Years [...] disease documented in this encounter Care Teams Group Work Program Aide Relationship Specialty Start Date End Date Momo Forbes PCP - General Family Practice 01/02/14 [facility] [address] [place], [place] [id number] documented as of this encounter
--- OUTSIDE RECORDS SUMMARY | 2022-05-21 13:19 | XMS_ITS | Encounter Summary ---
:1950 Author Organization [place] Address [facility] [place] [address] Care Team Providers Name Role Phone Momo Forbes Primary Care Provider Joseph Quintana MD Unavailable Encounter Details Date Type Department Care Team Description 05/16/2019 External Order [facility] Nurse, Txc Afterca re following organ transplant; Results Transplant Clinic Kidney replaced by transplan t; [address] [place] [address] Encounter for long-term cur[place] [address] Social History Tobacco Use Types [...] Organization Address City/State/ZIP Code Phon e Kristina LOPZE PFT LABDE SCAN (ABNORMAL) Basic metabolic panel (05/16/2019 3:43 PM CDT) Analysis Performed At [facility] Time Signature Sodium 136 135 - 145 [...] Estimated >60 >60 LABDE SCAN (if ml/min/1.7 Mauritian) 3m2 (External) GFR Estimated 56 (L) >60 [...] 3:36 PM CDT) Analysis Performed At [facility] Time Signature Protein Random 41 (H) <=14 [...] edication documented in this encounter Care Teams Clinical Studies Specialist Relationship Specialty Start Date End Date Momo Forbes PCP - General Family Practice 01/02/14 [facility] [address] [place] [address] Joseph Quintana, Assigned Nephrology 03/29/21 Provider [address] [facility] 353 [facility] [address] [place] [address] documented as of this encounter
--- OUTSIDE RECORDS SUMMARY | 2022-05-21 13:19 | XMS_ITS | Encounter Summary ---
:1950 Author Organization [place] Address [address] [place] [address] Care Team Providers Name Role Phone ForbesMomo prakash A Primary Care Provider Reason for Visit Reason Comments RECHECK annual Follow up Kidney [place] Encounter Details Date Type Department Care Team Description 10/17/2018 Office Visit [facility] Shiva Presley MD [facility] [address] [facility] [address] [place] [address] Type 2 diabetes mellitus with other spec ified complication, with long-term current use of insulin (H) (Primary Dx); Nephrology Clinic [facility] Kidney/Pancreas Recipient Kidney replaced by transplant; [place] Aftercare following organ tr ansplant; [address] Immunosupp ression (H); SE HTN, kidney transplant relat ed; [place], [place] Severe obesi ty in adult, BMI [...] Comments Blood Pressure 162/77 10/17/2018 1:54 PM HAUL CANE BRAKEMAN Pulse 60 10/17/2018 1:54 PM HAUL CANE BRAKEMAN Temperature 36.5 ??C (97.7 ??F) 10/17/2018 1:54 PM HAUL CANE BRAKEMAN Respiratory Rate - - Oxygen Saturation 94% 10/17/2018 1:54 PM HAUL CANE BRAKEMAN Inhaled Oxygen Concentration - - Weight 133.7 kg (294 lb 12.8 oz) 10/17/2018 1:54 PM HAUL CANE BRAKEMAN Height - - Body Mass Index 39.98 10/10/2017 2:25 PM HAUL CANE BRAKEMAN documented in this encounter Progress Notes Joseph [...] then 50%0. Also offered to refer to client account manager. # Mineral Bone Disorder: - Secondary renal [...] PREVIOUSLY REPORTED 1999 MPACID 1.39 MPAG 80.2 CANE BRAKEMAN documented in this encounter Nursing Notes Martina [...] kg (294 lb 12.8 oz). Martina Boyle CANE BRAKEMAN documented in this encounter Plan of Treatment [...] >40 documented in this encounter Care Teams Asp Web Developer Relationship Specialty Start Date End Date Momo Forbes PCP - General [facility] Practice 01/02/14 [facility] [address] [place] [address] documented as of this encounter
--- OUTSIDE RECORDS SUMMARY | 2022-05-21 13:19 | XMS_ITS | Encounter Summary ---
:1950 Author Organization [place] Address [address] [place] [address]. [place] [address] Care Team Providers Name Role Phone Momo [...] filedocumented in this encounter Care Teams Clinical Psychology Teacher Relationship Specialty Start Date End Date Momo Forbes PCP - General Family Practice 01/02/14 [facility] [address] [place] [address] documented as of this encounter
--- OUTSIDE RECORDS SUMMARY | 2022-05-21 13:19 | XMS_ITS | Encounter Summary ---
:1950 Author Organization [place] Address [address] [place] [address]. [place] [address] Care Team Providers Name Role Phone Momo Forbes Primary Care Provider Reason for Visit Reason Onset Date Comments Refill Request 01/17/2019 Encounter Details Date Type Department Care Team Description 01/17/2019 Refill [facility] Joseph Quintana MD Refill Request Transplant Clinic [address] [place] [phone] [place] [address] (Wo rk) Social History Tobacco [...] transplant documented in this encounter Care Teams Group Teacher Relationship Specialty Start Date End Date Momo Forbes PCP - General Family Practice 01/02/14 [facility] [address] [place] [address] documented as of this encounter
--- OUTSIDE RECORDS SUMMARY | 2022-05-21 13:19 | XMS_ITS | Encounter Summary ---
:1950 Author Organization [place] Address [facility] [place] [address] Care Team Providers Name Role Phone Momo Forbes Primary Care Provider Reason for Visit Reason Onset Date Comments Transplant Pharmacy Medication Review 01/10/2019 Encounter Details Date Type Department Care Team Description 01/10/2019 Telephone [facility] Meghan Mccormack, [facility] Transplant Pharmacy [address] [facility] [place] [address] PHARMACY [phone] [address], [place] [address] (Wo rk) Social History Tobacco Use Types [...] filedocumented in this encounter Care Teams Industrial Analyst Relationship Specialty Start Date End Date Momo Forbes PCP - General Family Practice 01/02/14 [facility] [address] [place] [address] documented as of this encounter
--- OUTSIDE RECORDS SUMMARY | 2022-05-21 13:19 | XMS_ITS | Encounter Summary ---
:1950 Author Organization [place] Address [address] [facility] [place] [address] Care Team Providers Name Role Phone Forbes, Momo He Primary Care Provider Reason for Referral Consultation - Closed Specialty Diagnoses / Procedures Referred By Contact Refer red To Contact Diagnoses Obesity Kidney transplanted [facility] Other Services [address] [place] [address] Referral ID Status Reason Start Date Expiration Date Visits Requ ested Visits Authorized [id number] Closed 10/17/2018 10/17/2019 1 1 PRESS FEEDER Reason for Visit Reason Comments Transplant Encounter Details Date Type Department Care Team Description 10/17/2018 Orders Only [facility] Marcelacaty Nazia Obesity (P rimary Dx); Transplant Clinic BOGDAN Hicks Kidney transplanted 9 [place] [address] Social History Tobacco Use Types [...] documented in this encounter Care Teams Leather Grader Relationship Specialty Start Date End Date Momo Forbes PCP - General Family Practice 01/02/14 [facility] [address] [place] [address] documented as of this encounter
--- OUTSIDE RECORDS SUMMARY | 2022-05-21 13:19 | XMS_ITS | Encounter Summary ---
:1950 Author Organization [place] Address [address] [place] [address]. [place] [address] Care Team Providers Name Role Phone Momo [...] on filedocumented in this encounter Care Teams Stacker Relationship Specialty Start Date End Date Momo Forbes PCP - General Family Practice 01/02/14 [facility] [address] [place] [address] documented as of this encounter
--- OUTSIDE RECORDS SUMMARY | 2022-05-21 13:19 | XMS_ITS | Encounter Summary ---
:1950 Author Organization [place] Address [address] [facility] [place] [address] Care Team Providers Name Role Phone Forbes, Momo He Primary Care Provider Reason for Visit Reason Onset Date Comments Transplant 10/18/2018 post transplant lucía sampson Encounter Details Date Type Department Care Team Description 10/18/2018 Telephone [facility] Nazia Jacobson Transplant (post Transplant Clinic BOGDAN Hicksembossing machine operator scheduling) [address] [place] [phone] Social History Tobacco Use Types Packs/Day [...] another detailed message with weight managements number. AZZO WORKER APPRENTICE Telephone Encounter - Maribel Plunkett - 10/18/2018 9:32 AM CST I attempted to contact pt to give him the number for weight management, as they want to talk directly to the patient when scheduling initial appointment, and reached his VM. I LVM asking him to return my call. AZZO WORKER APPRENTICE documented in this encounter Plan of Treatment Not on filedocumented as of this encounter Visit Diagnoses Not on filedocumented in this encounter Care Teams Plastic Straightening Roll Operator Relationship Specialty Start Date End Date Momo Forbes PCP - General Family Practice 01/02/14 [facility] [address] [place] [address] documented as of this encounter
--- OUTSIDE RECORDS SUMMARY | 2022-05-21 13:19 | XMS_ITS | Encounter Summary ---
:1950 Author Organization [place] Address [facility] [address] Care Team Providers Name Role Phone Momo Forbes Primary Care Provider Reason for Visit Reason Onset Date Comments Refill Request 12/22/2018 prograf, mycophenola te (PT IS OUT OF MEDS) Encounter Details Date Type Department Care Team Description 12/22/2018 Refill [facility] Joseph Quintana R alenest (prograf, Transplant Clinic MD Herminio mycophenolate (PT IS OUT [address] [facility] SE [address] [facility] SE OF MEDS)) [facility] [address] [facility] 185 [phone] [place], [place] [phone] [facility] [phone] (Wo rk) Social History Tobacco Use Types [...] transplant documented in this encounter Care Teams Radiologic Technologist Mammogram Relationship Specialty Start Date End Date Momo Forbes PCP - General Family Practice 01/02/14 [facility] [address] [place] [address] documented as of this encounter
--- OUTSIDE RECORDS SUMMARY | 2022-05-21 13:19 | XMS_ITS | Encounter Summary ---
:1950 Author Organization [place] Address [address] [facility] [place] [address] Care Team Providers Name Role Phone Momo Forbes Primary Care Provider Encounter Details Date Type Department Care Team Description 05/16/2019 Orders Only [facility] Loy Morales Aft ercare following organ transplant; [facility] Kidney replaced by transplant; Laboratory [address] [facility] Encounter for long-term curr ent use of medication [address] [place] [address] [phone] (Wo rk) Social History Tobacco Use Types [...] (ABNORMAL) Tacrolimus level (05/16/2019 3:43 PM CDT) [facility] gist Method Time Signature Tacrolimus Last 05/1605/18/2019 [facility] Dose 1230AM 11:28 AM CDT [facility] Tacrolimus 4.6 (L) 5.0 - 05/18/2019 [facility] 15.0 ug/L 4:11 PM CDT [facility] Comment: Tacrolimus Reference Range Kidney Transplant Pediatric [...] its performa nce characteristics determined by the [facility], ??Special Chemistry Laboratory. It has [...] Phon e Number [facility] [address] documented in this encounter Visit Diagnoses Diagnosis Aftercare following organ transplant Kidney replaced by transplant Encounter for long-term current use of m edication documented in this encounter Care Teams Asic Design Engineer Relationship Specialty Start Date End Date Momo Forbes PCP - General Family Practice 01/02/14 [facility] [address] [place] [address] documented as of this encounter
--- OUTSIDE RECORDS SUMMARY | 2022-05-21 13:19 | XMS_ITS | Encounter Summary ---
:1950 Author Organization [place] Address [address] [place] [address] Care Team Providers Name Role Phone Momo Forbes A Primary Care Provider Reason for Visit Reason Onset Date Comments Refill Request 10/25/2018 Encounter Details Date Type Department Care Team Description 10/25/2018 Refill [facility] Joseph Quintana MD Refill Request Transplant Clinic [address] [place] [address] [phone] [place] [address] (Wo rk) Social History Tobacco [...] Marianne Urias RN - 10/26/2018 9:04 AM FRONT CLERK ISSUE: Refill request for MMF 03/2019 appt [...] to call if further questions or concerns. T CLERK documented in this encounter Plan of Treatment Not on filedocumented as of this encounter Visit Diagnoses Diagnosis Kidney transplanted Kidney replaced by transplant documented in this encounter Care Teams Cocktail Lounge Manager Relationship Specialty Start Date End Date Momo Forbes PCP - General Family Practice 01/02/14 [facility] [address] [place] [address] documented as of this encounter
--- OUTSIDE RECORDS SUMMARY | 2022-05-21 13:20 | XMS_ITS | Encounter Summary ---
:1950 Author Organization [place] Address [facility] [place] [address] Care Team Providers Name Role Phone ForbesMomo santiago A Primary Care Provider Encounter Details Date Type Department Care Team Description 08/18/2018 Documentation Only [facility] Josseline Recinos, Transplant Clinic RN [address] [place] [address] Social History Tobacco Use Types [...] letter updated: 08/17/18 Lab orders faxed to: [facility] [phone] (Phone) Lab orders up to date in [facility]. OUND TELEMARKETING REPRESENTATIVE documented in this encounter Plan of Treatment Not on filedocumented as of this encounter Visit Diagnoses Not on filedocumented in this encounter Care Teams Mis Manager Relationship Specialty Start Date End Date Momo Forbes PCP - General Family Practice 01/02/14 [facility] [address] [place] [address] documented as of this encounter
--- OUTSIDE RECORDS SUMMARY | 2022-05-21 13:20 | XMS_ITS | Encounter Summary ---
:1950 Author Organization [place] Address [address] [place] [address]. [place] [address] Care Team Providers Name Role Phone Momo Forbes Primary Care Provider Reason for Visit Reason Onset Date Comments Erroneous encounter-disregard 05/17/2018 Encounter Details Date Type Department Care Team Description 05/17/2018 Telephone [facility] Etcheverry, Erroneous Transplant Clinic BOGDAN Lopes encounter-disregard [address] [place] [phone] Social History Tobacco Use Types Packs/Day [...] on filedocumented in this encounter Care Teams Dish Washer Relationship Specialty Start Date End Date Momo Forbes PCP - General Family Practice 01/02/14 [facility] [address] [place] [address] documented as of this encounter
--- OUTSIDE RECORDS SUMMARY | 2022-05-21 13:20 | XMS_ITS | Encounter Summary ---
:1950 Author Organization [place] Address [facility] [place] [address] Care Team Providers Name Role Phone Momo Forbes Primary Care Provider Joseph Quintana MD Unavailable Encounter Details Date Type Department Care Team Description 09/04/2018 External Order Results [facility] Nurse, [facility] Transplant Clinic 9 [place] [address] Social History Tobacco Use Types [...] 2:50 PM R esults for this DIFFERENTIAL CHANNEL ACCOUNT MANAGER procedure are i n the results section. BASIC METABOLIC PANEL Routine 09/04/2018 2:50 PM Results for this CHANNEL ACCOUNT MANAGER procedure are i n the results section. PROTEIN RANDOM URINE Routine 09/04/2018 2:49 PM R esults for this CHANNEL ACCOUNT MANAGER procedure are i n the results section. documented in this encounter Results (ABNORMAL) CBC with platelets differential (09/04/2018 2:50 PM CHANNEL ACCOUNT MANAGER) [facility] gist Method Time Signature WBC Count [...] Laterality Blood specimen 09/04/2018 2:50 PM (specimen) CHANNEL ACCOUNT MANAGER Narrative JESSICA THIBODEAUX - 09/06/2018 9:13 AM CHANNEL ACCOUNT MANAGER Verified by Cassie Florian on 09/06/2018. Patient Reported LAB - BLOOD ORDERABLES Performing Organization Address City/State/ZIP Code Phon e Number ZACHERYEZE PFT LABDE SCAN (ABNORMAL) Basic metabolic panel (09/04/2018 2:50 PM CHANNEL ACCOUNT MANAGER) Analysis Performed At Patho logist Time [...] 49 (L) >60 LABDE SCAN (if ml/min/1.7 Venezuelan) 3m2 (External) GFR Estimated 41 (L) >60 LABDE SCAN (External) ml/min/1.7 3m2 Specimen (Source) Anatomical Collection Method Collection Time Re ceived Time Location / / Volume Laterality Blood specimen 09/04/2018 2:50 PM (specimen) CHANNEL ACCOUNT MANAGER Narrative JESSICA PFT - 09/06/2018 9:13 AM CHANNEL ACCOUNT MANAGER Verified by Cassie Florian on 09/06/2018. Patient Reported LAB - BLOOD ORDERABLES Performing Organization Address City/State/ZIP Code Phon e Number BREEZE PFT LABDE SCAN (ABNORMAL) Protein random urine with Creat Ratio (09/04/2018 2:49 PM CHANNEL ACCOUNT MANAGER) P athologist Signature Protein Random 72 (H) 1 - 14 LABDE SCAN Urine mg/dL (External) Creatinine 104.0 63.0 - LABDE SCAN Urine mg/dL 166.0 (External) mg/dL Protein Total 0.7 (H) <0.2 LABDE SCAN Ur per Cr (External) Specimen (Source) Anatomical Collection Method Collection Time Re ceived Time Location / / Volume Laterality Urine specimen 09/04/2018 2:49 PM (specimen) CHANNEL ACCOUNT MANAGER Narrative MARLENEE PFT - 09/06/2018 9:13 AM CHANNEL ACCOUNT MANAGER Verified by Cassie Florian on 09/06/2018. Patient Reported LAB - URINE ORDERABLES Performing Organization Address City/State/ZIP Code Phon e Number BRETYLER PFT LABDE SCAN documented in this encounter Visit Diagnoses Not on filedocumented in this encounter Care Teams Center Receptionist Relationship Specialty Start Date End Date Momo Forbes PCP - General Family Practice 01/02/14 [facility] [address] [place] [address] Joseph Quintana, Assigned Nephrology 03/29/21 MD Provider 717 [facility] 353 [facility] 1932 [place] [address] documented as of this encounter
--- OUTSIDE RECORDS SUMMARY | 2022-05-21 13:20 | XMS_ITS | Encounter Summary ---
:1950 Author Organization [place] Address [address] [facility] [address] Care Team Providers Name Role Phone Momo Forbes A Primary Care Provider Reason for Visit Reason Onset Date Comments Refill Request 10/10/2017 mycophenolae Encounter Details Date Type Department Care Team Description 10/10/2017 Refill [facility] Mariano, Joseph Refill R equest Transplant Clinic MD Herminio (mycophenolae ) [address] [place] [phone] [place] [address] (Wo rk) Social History Tobacco [...] Fill Date: 09/01/17 Quantity: 180 Janelle Flowers [facility] [phone] L CONTRACTS SPECIALIST documented in this encounter Plan of Treatment Not on filedocumented as of this encounter Visit Diagnoses Diagnosis Kidney transplanted Kidney replaced by transplant documented in this encounter Care Teams Train Driver Relationship Specialty Start Date End Date Momo Forbes PCP - General Family Practice 01/02/14 [facility] [address] [place] [address] documented as of this encounter
--- OUTSIDE RECORDS SUMMARY | 2022-05-21 13:20 | XMS_ITS | Encounter Summary ---
:1950 Author Organization [place] Address [address] [place] [address]. [place] [address] Care Team Providers Name Role Phone Momo Forbes Primary Care Provider Reason for Visit Reason Onset Date Comments Refill Request 10/11/2017 Encounter Details Date Type Department Care Team Description 10/11/2017 Refill [facility] Transplant Debbie Calderon LPN Refill Request Clinic [address] [place] [address] [phone] Social History Tobacco Use Types Packs/Day [...] transplant documented in this encounter Care Teams Check Examiner Relationship Specialty Start Date End Date Momo Forbes PCP - General Family Practice 01/02/14 [facility] [address] [place] [address] documented as of this encounter
--- OUTSIDE RECORDS SUMMARY | 2022-05-21 13:20 | XMS_ITS | Encounter Summary ---
:1950 Author Organization [place] Address [address] [facility] [place] [address] Care Team Providers Name Role Phone Momo Forbes A Primary Care Provider Reason for Visit Reason Onset Date Comments Refill Request 12/19/2017 Encounter Details Date Type Department Care Team Description 12/19/2017 Refill [facility] Joseph Quintana MD Refill Request Transplant Clinic [address] [place] [address] [phone] [place] [address] (Wo rk) Social History Tobacco [...] Fill Date: 11/14/17 Quantity: 60 Janelle Flowers [facility] [phone] documented in this encounter Plan of Treatment Not on filedocumented as of this encounter Visit Diagnoses Diagnosis Kidney transplanted Kidney replaced by transplant documented in this encounter Care Teams Manager Category Relationship Specialty Start Date End Date Momo Forbes PCP - General Family Practice 01/02/14 [facility] [address] [place] [address] documented as of this encounter
--- OUTSIDE RECORDS SUMMARY | 2022-05-21 13:20 | XMS_ITS | Encounter Summary ---
:1950 Author Organization [place] Address [address] [place] [address] Care Team Providers Name Role Phone Momo Forbes Primary Care Provider Encounter Details Date Type Department Care Team Description 05/31/2017 Orders Only [facility] Loy Morales Kid ney replaced by [facility] MD transplant Laboratory [address] [facility] 500 [facility] 609 [place] [id number] (Wo rk) Social History Tobacco Use Types [...] (ABNORMAL) Tacrolimus level (05/30/2017 1:01 PM CDT) [facility] Method Time Signature Tacrolimus Last 05/29/17 05/31/2017 [facility] Dose 1930 1:05 PM CDT [facility] Tacrolimus 3.0 (L) 5.0 - 05/31/2017 [facility] 15.0 ug/L 7:54 PM CDT [facility] Comment: Tacrolimus Reference Range [...] its performa nce characteristics determined by the [facility], ??Special Chemistry Laboratory. It has not [...] Phon e Number [facility] 500 [place], [place] [phone] [place] [address] documented in this encounter Visit Diagnoses Diagnosis Kidney replaced by transplant documented in this encounter Care Teams Farm Loan Inspector Relationship Specialty Start Date End Date Momo Forbes PCP - General Family Practice 01/02/14 [facility] [address] [place] [address] documented as of this encounter
--- OUTSIDE RECORDS SUMMARY | 2022-05-21 13:20 | XMS_ITS | Encounter Summary ---
:1950 Author Organization [place] Address [facility] [address] Care Team Providers Name Role Phone Momo Forbes Primary Care Provider Joseph Quintana MD Unavailable Encounter Details Date Type Department Care Team Description 05/15/2018 External Order Results [facility] Nurse, [facility] Transplant Clinic 9 [place] [address] Social History Tobacco Use Types [...] 54 (L) >60 LABDE SCAN (if ml/min/1.7 Nigerian) 3m2 (External) GFR Estimated 44 (L) >60 [...] on filedocumented in this encounter Care Teams Dev Ops Engineer Relationship Specialty Start Date End Date Momo Forbes PCP - General Family Practice 01/02/14 [facility] [address] [place] [address] Joseph Quintana, Assigned Nephrology 03/29/21 Provider 7 [facility] 353 [facility] 1932 [place], [place] [id number] documented as of this encounter
--- OUTSIDE RECORDS SUMMARY | 2022-05-21 13:20 | XMS_ITS | Encounter Summary ---
:1950 Author Organization [place] Address [facility] [place] [address] Care Team Providers Name Role Phone Momo Forbes Primary Care Provider Joseph Quintana MD Unavailable Encounter Details Date Type Department Care Team Description 09/09/2017 External Order [facility] Nurse, [facility] Kidney replaced by Results Transplant Clinic transplant [address] [place] [phone] Social History Tobacco Use Types Packs/Day [...] 07/15/2017 10:48 AM Result s for this CROSS CUT SAW OPERATOR procedure are i n the results section. BASIC METABOLIC Routine 07/15/2017 10:48 AM Kidney replaced by Results for this PANEL CROSS CUT SAW OPERATOR transplant procedure are i n the results [...] Results (ABNORMAL) Hemoglobin A1c (07/15/2017 10:48 AM CROSS CUT SAW OPERATOR) Patholo gist Method Time Signature Hemoglobin A1C >14.0 (H) <=6.4 % LABDE SCAN (External) Specimen (Source) Anatomical Collection Method Collection Time Re ceived Time Location / / Volume Laterality Blood specimen 07/15/2017 10:48 (specimen) AM CROSS CUT SAW OPERATOR Narrative ZACHERYMARIELABea PFT - 09/09/2017 9:36 PM CROSS CUT SAW OPERATOR Verified by Sharon Martinez on 8. Patient Reported LAB - BLOOD ORDERABLES Performing Organization Address City/State/ZIP Code Phon e Number JESSICA PFT LABDE SCAN (ABNORMAL) Basic metabolic panel (07/15/2017 10:48 AM CROSS CUT SAW OPERATOR) Analysis Performed At Patho logist Time [...] 55 (L) >60 LABDE SCAN (if ml/min/1.7 Israeli) 3m2 (External) GFR Estimated 46 (L) >60 LABDE SCAN (External) ml/min/1.7 3m2 Specimen (Source) Anatomical Collection Method Collection Time Re ceived Time Location / / Volume Laterality Blood specimen 07/15/2017 10:48 (specimen) AM CROSS CUT SAW OPERATOR Narrative BREEZE PFT - 09/09/2017 9:36 PM CROSS CUT SAW OPERATOR Verified by Sharon Martinez on 8. [place] [...] Narrative BREEZE PFT - 09/09/2017 9:39 PM CROSS CUT SAW OPERATOR Verified by Sharon Martinez on 8. Patient [...] Narrative BREEZE PFT - 09/09/2017 9:39 PM CROSS CUT SAW OPERATOR Verified by Sharon Martinez on 8. [place] [...] 51 (L) >60 LABDE SCAN (if ml/min/1.7 Israeli) 3m2 (External) GFR Estimated 42 (L) >60 LABDE SCAN (External) ml/min/1.7 3m2 Specimen (Source) Anatomical Collection Method Collection Time Re ceived Time Location / / Volume Laterality Blood specimen 05/30/2017 9:32 AM (specimen) CDT Narrative BREEZE PFT - 09/09/2017 9:39 PM CROSS CUT SAW OPERATOR Verified by Sharon Martinez on 8. [place] [...] Narrative BREEZE PFT - 09/09/2017 9:44 PM CROSS CUT SAW OPERATOR Verified by Sharon Martinez on 8. Patient [...] Narrative BREEZE PFT - 09/09/2017 9:44 PM CROSS CUT SAW OPERATOR Verified by Sharon Martinez on 8. Patient [...] Narrative BREEZE PFT - 09/09/2017 9:44 PM CROSS CUT SAW OPERATOR Verified by Sharon Martinez on 8. Patient [...] 55 (L) >60 LABDE SCAN (if ml/min/1.7 Israeli) 3m2 (External) GFR Estimated 46 (L) >60 LABDE SCAN (External) ml/min/1.7 3m2 Specimen (Source) Anatomical Collection Method Collection Time Re ceived Time Location / / Volume Laterality Blood specimen 01/19/2017 9:30 AM (specimen) CDT Narrative JESSICA PFT - 09/09/2017 9:44 PM CROSS CUT SAW OPERATOR Verified by Sahron Martinez on 8. Patient Reported LAB - BLOOD ORDERABLES Performing Organization Address City/State/ZIP Code Phon e Number BREEZBea PFT LABDE SCAN documented in this encounter Visit Diagnoses Diagnosis Kidney replaced by transplant documented in this encounter Care Teams Restaurant Shift Leader Relationship Specialty Start Date End Date Momo Forbes PCP - General Family Practice 01/02/14 [facility] [address] [place] [address] Joseph Quintana, Assigned Nephrology 03/29/21 Provider 717 [facility] 353 [facility] 1932 [place] [address] documented as of this encounter
--- OUTSIDE RECORDS SUMMARY | 2022-05-21 13:20 | XMS_ITS | Encounter Summary ---
:1950 Author Organization [place] Address [address] [place] [address] Care Team Providers Name Role Phone ForbesMomo santiago A Primary Care Provider Reason for Visit Reason Onset Date Comments Transplant 09/12/2017 Encounter Details Date Type Department Care Team Description 09/12/2017 Telephone [facility] Transplant Nazia Jacobson, Transplant Clinic RN [address] [phone] Social History Tobacco Use Types Packs/Day [...] updated standing lab order and faxed to [facility] lab. BRAILLE TRANSCRIBER Telephone Encounter - Nazia Jcaobson RN - 09/12/2017 8:36 AM HAND BRAILLE TRANSCRIBER ISSUE: Hyperglycemia (blood sugar 300-600s w/ last 2 blood draws) Overdue for transplant labs REGISTERED NURSE OBSTETRICS TASK: Call Diego Guthrie and ask him who is managing his diabetes? Does he have an hand etcher? He needs to have better blood sugar control, elevated blood sugars can cause damage to his kidney. Remind him that he should be getting transplant labs done monthly. (3 years out from kidney transplant) Send updated lab letter. BRAILLE TRANSCRIBER documented in this encounter Plan of Treatment Not on filedocumented as of this encounter Visit Diagnoses Not on filedocumented in this encounter Care Teams Needle Valve Operator Relationship Specialty Start Date End Date Momo Forbes PCP - General Family Practice 01/02/14 [facility] [address] [place] [address] documented as of this encounter
--- OUTSIDE RECORDS SUMMARY | 2022-05-21 13:20 | XMS_ITS | Encounter Summary ---
:1950 Author Organization [place] Address [address] [facility] [place] [address] Care Team Providers Name Role Phone Momo Forbes A Primary Care Provider Reason for Visit Reason Onset Date Comments Refill Request 06/28/2017 mycophenolate Encounter Details Date Type Department Care Team Description 06/28/2017 Refill [facility] Mariano, Joseph Refill R equest Transplant Clinic MD Herminio (mycophenolate) [address] [place] [phone] [place] [address] (Wo rk) Social History Tobacco [...] Fill Date: 05/31/17 Quantity: 180 Janelle Flowers [facility] [phone] ADJUSTER documented in this encounter Plan of Treatment Not on filedocumented as of this encounter Visit Diagnoses Diagnosis Kidney transplanted - Primary Kidney replaced by transplant documented in this encounter Care Teams Commercial Specialist Relationship Specialty Start Date End Date Momo Forbes PCP - General Family Practice 01/02/[address] [address] documented as of this encounter
--- OUTSIDE RECORDS SUMMARY | 2022-05-21 13:20 | XMS_ITS | Encounter Summary ---
:1950 Author Organization [place] Address [address] [place] [address] Care Team Providers Name Role Phone Momo Forbes Primary Care Provider Encounter Details Date Type Department Care Team Description 11/03/2017 Orders Only [facility] Loy Morales Kid ney replaced by [facility] MD transplant Laboratory 420 [facility] 500 [facility] 609 [place] [phone] (Wo rk) Social History Tobacco Use Types [...] Results Tacrolimus level (11/03/2017 11:30 AM CDT) [facility] Method Time Signature Tacrolimus Not Provided 11/05/2017 [facility] Last Dose 2:20 PM CDT [facility] Tacrolimus 10.7 5.0 - 11/06/2017 [facility] 15.0 ug/L 1:00 PM CDT [facility] Comment: Tacrolimus Reference Range [...] its performa nce characteristics determined by the [facility], ??Special Chemistry Laboratory. It has not [...] Organization Address City/State/ZIP Code Phon e Number [id number] [place] [address] documented in this encounter Visit Diagnoses Diagnosis Kidney replaced by transplant documented in this encounter Care Teams Test Preparation Tutor Relationship Specialty Start Date End Date Momo Forbes PCP - General Family Practice 01/02/14 [facility] [address] [place] [address] documented as of this encounter
--- OUTSIDE RECORDS SUMMARY | 2022-05-21 13:20 | XMS_ITS | Encounter Summary ---
:1950 Author Organization [place] Address [address] [place] [address]. [place] [address] Care Team Providers Name Role Phone Momo Forbes Primary Care Provider Encounter Details Date Type Department Care Team Description 05/17/2018 Orders Only [facility] Alana Calderon Afterc are following Transplant medical sociologist organ transplant [address] [place] [address] (Primary Dx) [place] [phone] Social History Tobacco Use Types [...] rimary documented in this encounter Care Teams Cable Tool Driller Relationship Specialty Start Date End Date Momo Forbes PCP - General Family Practice 01/02/14 [facility] [address] [place] [address] documented as of this encounter
--- OUTSIDE RECORDS SUMMARY | 2022-05-21 13:20 | XMS_ITS | Encounter Summary ---
:1950 Author Organization [place] Address [address] [place] [address] Care Team Providers Name Role Phone Momo Forbes Primary Care Provider Encounter Details Date Type Department Care Team Description 05/15/2018 Orders Only M [facility] Loy Morales MD [facility] 420 [facility] [address] [place] [phone] [place] [address] [phone] Social History Tobacco Use Types Packs/Day Years [...] (ABNORMAL) Tacrolimus level (05/15/2018 2:13 PM CDT) [facility] gist Method Time Signature Tacrolimus Not Provided 05/18/2018 [facility] Last Dose 7:24 AM CDT [facility] Tacrolimus 3.4 (L) 5.0 - 05/18/2018 [facility] Level 15.0 ug/L 7:24 AM CDT [facility] Comment: Tacrolimus Reference Range Kidney Transplant [...] its performa nce characteristics determined by the [facility], ??Special Chemistry Laboratory. It has [...] LAB - BLOOD ORDERABLES Performing Organization Address [facility]/ZIP Code Phon e Number [facility] [address] Cyclosporine (05/15/2018 2:13 PM CDT) Component Value Ref Test Analysis Performed At [facility] Range Method Time Signature Cyclosporine CANCELLED BY 05/17/2018 [facility] Dose BOGDAN KOLB 1:00 PM CDT [facility] ON [facility] 05/17/18 AT CAMP[facility] 1300 BY [place] Comment: CORRECTED ON 05/17 AT 1300: PRE VIOUSLY REPORTED [id number] Cyclosporine Level CANCELLED BY RN 50 - 400 05/17/2018 1:00 [facility] C[facility] ug/L PM CDT [facility] ETCHEVERRY ON [facility] 05/17/18 AT 1300 BY [place] Comment: CORRECTED ON 05/17 AT 1300: PRE VIOUSLY REPORTED <25 Specimen Anatomical Collection Method Collection Time Receive d Time (Source) Location / / Volume Laterality 05/15/2018 2:13 PM 8 9:59 CDT AM CDT [place] Richey MD LAB - BLOOD ORDERABLES Performing Organization Address City/[facility]/ZIP Code Phon e Number [address] documented in this encounter Visit Diagnoses Not on filedocumented in this encounter Care Teams Plate Inspector Relationship Specialty Start Date End Date Momo Forbes PCP - General Family Practice 01/02/14 [facility] [address] [place] [address] documented as of this encounter
--- OUTSIDE RECORDS SUMMARY | 2022-05-21 13:20 | XMS_ITS | Encounter Summary ---
:1950 Author Organization [place] Address [address] [place] [address] Care Team Providers Name Role Phone Forbes, Ton Primary Care Provider Reason for Visit Reason Onset Date Comments Transplant 11/07/2017 Encounter Details Date Type Department Care Team Description 11/07/2017 Telephone [facility] Transplant Nazia Jacobson, Transplant Clinic RN [address] [phone] Social History Tobacco Use Types Packs/Day [...] range, repeat tac level in 1 week. COMMERCIAL AIRLINE PILOT TASK: Call patient with instructions per plan. Enter lab orders if needed. documented in this encounter Plan of Treatment Not on filedocumented as of this encounter Visit Diagnoses Not on filedocumented in this encounter Care Teams Court Commissioner Relationship Specialty Start Date End Date Momo Forbes PCP - General Family Practice 01/02/[address] [address] documented as of this encounter
--- OUTSIDE RECORDS SUMMARY | 2022-05-21 13:20 | XMS_ITS | Encounter Summary ---
:1950 Author Organization [place] Address [address] [place] [address]. [place] [address] Care Team Providers Name Role Phone Momo Forbes Primary Care Provider Reason for Visit Reason Onset Date Comments Transplant Pharmacy Medication Review 01/26/2017 Encounter Details Date Type Department Care Team Description 01/26/2017 Telephone [facility] Janes Rodriguez, Transplant Pharmacy 500 [facility] Medication [place] [phone] Social History Tobacco Use Types Packs/Day Years [...] on filedocumented in this encounter Care Teams Softball Umpire Relationship Specialty Start Date End Date Momo Forbes PCP - General Family Practice 01/02/14 [facility] [address] [place] [address] documented as of this encounter
--- OUTSIDE RECORDS SUMMARY | 2022-05-21 13:20 | XMS_ITS | Encounter Summary ---
:1950 Author Organization [place] Address [address] [place] [address]. [place] [address] Care Team Providers Name Role Phone Momo Forbes Primary Care Provider Reason for Visit Reason Onset Date Comments Transplant 08/31/2017 Encounter Details Date Type Department Care Team Description 08/31/2017 Telephone [facility] Transplant Amanda Garduno Transplant Clinic M, RN [address] [phone] Social History Tobacco Use Types Packs/Day [...] filedocumented in this encounter Care Teams Supervisor Reclamation Relationship Specialty Start Date End Date Momo Forbes PCP - General Family Practice 01/02/14 [facility] [address] [place] [address] documented as of this encounter
--- OUTSIDE RECORDS SUMMARY | 2022-05-21 13:20 | XMS_ITS | Encounter Summary ---
:1950 Author Organization [place] Address [address] [place] [address]. [place] [address] Care Team Providers Name Role Phone Momo Forbes Primary Care Provider Encounter Details Date Type Department Care Team Description 03/23/2017 Orders Only [facility] Orlando Richey Kidne y replaced by Nephrology Clinic transplant (Primary [address] Dx) [address] [place] [address] [phone] Social History Tobacco Use Types Packs/Day [...] Primary documented in this encounter Care Teams Manager Games Relationship Specialty Start Date End Date Momo Forbes PCP - General Family Practice 01/02/14 [facility] [address] [place] [address] documented as of this encounter
--- OUTSIDE RECORDS SUMMARY | 2022-05-21 13:20 | XMS_ITS | Encounter Summary ---
:1950 Author Organization [place] Address [address] [facility] [place] [address] Care Team Providers Name Role Phone Momo Forbes Primary Care Provider Encounter Details Date Type Department Care Team Description 01/19/2017 Orders Only [facility] Loy Morales Aft ercare following organ transplant; [facility] Kidney replaced by transplant; Laboratory [address] [facility] Encounter for long-term curr ent use of medication [address] [place] [address] [phone] (Wo rk) Social History Tobacco Use Types [...] Results Tacrolimus level (01/19/2017 9:25 AM CDT) [facility] gist Method Time Signature Tacrolimus Last 0800 [facility] Dose 01/19/17 [facility] Tacrolimus 6.5 5.0 - [facility] 15.0 ug/L [facility] Comment: Tacrolimus Reference Range Kidney Transplant [...] its perform ance characteristics determined by the [facility], ??Special Chemistry Laboratory. It has [...] Address City/State/ZIP Code Phon e Number [phone] [place] [address] documented in this encounter Visit Diagnoses Diagnosis Aftercare following organ transplant Kidney replaced by transplant Encounter for long-term current use of m edication documented in this encounter Care Teams Medical Staffing Coordinator Relationship Specialty Start Date End Date Momo Forbes PCP - General Family Practice 01/02/[address] [address] documented as of this encounter
--- OUTSIDE RECORDS SUMMARY | 2022-05-21 13:20 | XMS_ITS | Encounter Summary ---
:1950 Author Organization [place] Address [address] [place] [address]. [place] [address] Care Team Providers Name Role Phone Momo Forbes Primary Care Provider Reason for Visit Reason Onset Date Comments Transplant Pharmacy Medication Review 01/19/2018 Encounter Details Date Type Department Care Team Description 01/19/2018 Telephone [facility] Beny Staton, Transplant Pharmacy [address] [facility] [place] [address] [facility] [phone] PHARMACY [place], [place] 219184 Social History Tobacco Use Types Packs/Day Years [...] filedocumented in this encounter Care Teams Animal Pathology Teacher Relationship Specialty Start Date End Date Momo Forbes PCP - General Family Practice 01/02/14 [facility] [address] [place] [address] documented as of this encounter
--- OUTSIDE RECORDS SUMMARY | 2022-05-21 13:20 | XMS_ITS | Encounter Summary ---
:1950 Author Organization [place] Address [address] [place] [address]. [place] [address] Care Team Providers Name Role Phone Momo Forbes Primary Care Provider Encounter Details Date Type Department Care Team Description [facility]/10[facility]2017 [facility] [place] [address] [phone] Social History Tobacco Use Types Packs/Day Years [...] disease documented in this encounter Care Teams Cork Cutter Relationship Specialty Start Date End Date Momo Forbes PCP - General Family Practice 01/02/14 [facility] [address] [place] [address] documented as of this encounter
--- OUTSIDE RECORDS SUMMARY | 2022-05-21 13:20 | XMS_ITS | Encounter Summary ---
:1950 Author Organization [place] Address [facility] [place] [address] Care Team Providers Name Role Phone ForbesMomo santiago A Primary Care Provider Reason for Visit Reason Onset Date Comments Transplant 06/01/2017 [place] returning call Left on 06/05/17 Encounter Details Date Type Department Care Team Description 06/01/2017 [facility] Shiva Kahn, senior payroll manager ([place] Transplant Clinic [facility] returning call Left [facility] [address] on 06/05/17) [place], [place] [address] [place], [place] [phone] Social History Tobacco Use Types Packs/Day [...] care to get a good 12-hour level. SHROUD LINE TIER TASK: Please fax lab order for tacrolimus level Telephone Encounter - Mary Whitehead - 06/06/2017 7:47 AM CDT Please call Diego. Called on Tuesday left to call him on Tuesday06/06/17. ADDENDUM: SHROUD LINE TIER TASK: Call with questions and instruction per [...] on filedocumented in this encounter Care Teams Academic Interventionist Relationship Specialty Start Date End Date Momo Forbes PCP - General Family Practice 01/02/14 [facility] [address] [place] [address] documented as of this encounter
--- OUTSIDE RECORDS SUMMARY | 2022-05-21 13:20 | XMS_ITS | Encounter Summary ---
:1950 Author Organization [place] Address [address] [place] [address] Care Team Providers Name Role Phone ForbesMomo santiago A Primary Care Provider Encounter Details Date Type Department Care Team Description 05/30/2017 Hospital Encounter [facility] Orlando Richey, [facility] [address] [address] [phone] (Wo rk) Social History Tobacco Use Types [...] End Date Calcium Take 1 tablet by 0 Carbonate-Vitamin D mouth daily (dose (CALCIUM + D PO) unknown) HumaLOG VIAL 100 Inject 20-40 Units 0 UNITS/ML SOLN Subcutaneous 3 times daily (before meals) Patient reported his dose 10-12 unit 2-3 times daily before meals LANTUS VIAL 100 Inject 50 Units 0 UNITS/ML SC SOLN Subcutaneous every evening aspirin 81 MG Take 1 tablet (81 180 tablet 0 04/09/2014 tabletIndications: DM mg) by mouth daily (diabetes mellitus), type 2 (H) citalopram (CELEXA) 20 Take 1 tablet (20 90 tablet 3 2016 MG tabletIndications: mg) by mouth daily Reactive depression rosuvastatin (CRESTOR) Take 1 tablet (10 90 [...] on filedocumented in this encounter Care Teams Load Manager Relationship Specialty Start Date End Date Momo Forbes PCP - General Family Practice 01/02/14 [facility] [address] [place] [address] documented as of this encounter
--- OUTSIDE RECORDS SUMMARY | 2022-05-21 13:20 | XMS_ITS | Encounter Summary ---
:1950 Author Organization [place] Address [address] [place] [address] Care Team Providers Name Role Phone Forbes, Momo He Primary Care Provider Reason for Visit Reason Comments RECHECK Kidney tx follow up Encounter Details Date Type Department Care Team Description 10/10/2017 Office Visit [facility] Shiva Presley Sta tus post kidney transplant (Primary Dx); Nephrology Clinic Immunosuppression (H); [facility] Type 2 diabetes mellitus wit h stage 3 chronic kidney disease, with long-term current use of insulin (H); [address] [place] [address] Benign essential hypertension; [address] Hyperlipidemia, unspecified hyperlipidemia type; [place], [place] RANJAN 220 Skin cancer screening [phone] [place] [address] (Wo rk) Social History Tobacco [...] Comments Blood Pressure 153/74 10/10/2017 2:25 PM HEEL BUFFER Pulse 55 10/10/2017 2:25 PM HEEL BUFFER Temperature 36.7 ??C (98.1 ??F) 10/10/2017 2:25 PM HEEL BUFFER Respiratory Rate - - Oxygen Saturation 98% 10/10/2017 2:25 PM HEEL BUFFER Inhaled Oxygen Concentration - - Weight 135.4 kg (298 lb 6.4 oz) 10/10/2017 2:25 PM HEEL BUFFER Height 182.9 cm (6') 10/10/2017 2:25 PM HEEL BUFFER Body Mass Index 40.47 10/10/2017 2:25 PM HEEL BUFFER documented in this encounter Progress Notes Shiva [...] is well as a referral to his house servant for monitoring for any skin cancers. 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 BUFFER documented in this encounter Nursing Notes [place] [...] Medication Reconciliation: complete MONROE ZURITA CMA . BUFFER documented in this encounter Plan of Treatment [...] skin documented in this encounter Care Teams Relief Map Modeler Relationship Specialty Start Date End Date Momo Forbes PCP - General Family Practice 01/02/14 [facility] [address] [place] [address] documented as of this encounter
--- OUTSIDE RECORDS SUMMARY | 2022-05-21 13:20 | XMS_ITS | Encounter Summary ---
:1950 Author Organization [place] Address [address] [place] [address]. [place] [address] Care Team Providers Name Role Phone Momo Forbes Primary Care Provider Reason for Visit Reason Onset Date Comments Refill Request 08/31/2017 mycophenolate Encounter Details Date Type Department Care Team Description 08/31/2017 Refill [facility] Mariano, Joseph Refill R equest Transplant Clinic MD Herminio (mycophenolate) [address] [place] [phone] [place] [address] (Wo rk) Social History [...] transplant documented in this encounter Care Teams Dye Tank Tender Relationship Specialty Start Date End Date Momo Forbes PCP - General Family Practice 01/02/14 [facility] [address] [place], [place] [phone] documented as of this encounter
--- OUTSIDE RECORDS SUMMARY | 2022-05-21 13:20 | XMS_ITS | Encounter Summary ---
:1950 Author Organization [place] Address [address] [place] [address] Care Team Providers Name Role Phone ForbesMomo prakash A Primary Care Provider Reason for Visit Reason Onset Date Comments Transplant Lab 09/06/2018 Encounter Details Date Type Department Care Team Description 09/06/2018 Telephone [facility] Transplant Adonay, Transplant Lab Clinic BOGDAN Lopes [address] [place] [phone] Social History Tobacco Use Types Packs/Day [...] Marianne Urias RN - 09/12/2018 11:58 AM HEEL EMERY BUFFER Attempted to reach pt again regarding his labs, no answer. Left message for pt to return call. EMERY BUFFER Telephone Encounter - Marianne Urias RN - 09/07/2018 1:30 PM HEEL EMERY BUFFER Attempted to reach pt again regarding labs, no answer. Left message for pt to return call. EMERY BUFFER Telephone Encounter - Marianne Urias RN - 09/06/2018 12:59 PM HEEL EMERY BUFFER ISSUE: Creatinine 1.69, up from pt baseline [...] Left message for pt to return call. EMERY BUFFER documented in this encounter Plan of Treatment Not on filedocumented as of this encounter Visit Diagnoses Not on filedocumented in this encounter Care Teams Ict Support Engineer Relationship Specialty Start Date End Date Momo Forbes PCP - General Family Practice 01/02/14 [facility] [address] [place] [address] documented as of this encounter
--- OUTSIDE RECORDS SUMMARY | 2022-05-21 13:20 | XMS_ITS | Encounter Summary ---
:1950 Author Organization [place] Address [address] [place] [address]. [place] [address] Care Team Providers Name Role Phone Momo Forbes Primary Care Provider Reason for Visit Reason Onset Date Comments Transplant 05/26/2017 refill Encounter Details Date Type Department Care Team Description 05/26/[address] [facility] Anita Joshi MD Transplant (refill) Nephrology Clinic [address] [place] [phone] [place] [address] (Wo rk) [address] [phone] Social History Tobacco Use Types Packs/Day Years [...] transplant documented in this encounter Care Teams Ship'S Engineer Relationship Specialty Start Date End Date Momo Forbes PCP - General Family Practice 01/02/14 [facility] [address] [place] [address] documented as of this encounter
--- OUTSIDE RECORDS SUMMARY | 2022-05-21 13:20 | XMS_ITS | Encounter Summary ---
:1950 Author Organization [place] Address [address] [facility] [place] [address] Care Team Providers Name Role Phone Momo Forbes A Primary Care Provider Reason for Visit Reason Onset Date Comments Appointment 08/24/2018 Encounter Details Date Type Department Care Team Description 08/24/2018 Telephone [facility] Nephrology Romi Garcia, RN Appointment [facility] [phone] ([facility]) [address] [place] [address] [phone] Social History Tobacco Use Types Packs/Day [...] patient to call back. Romi Rodriguez RN PROGRAMMER Telephone Encounter - Rmoi Rodriguez RN - 08/24/2018 1:54 PM CST Left voicemail for patient to call back (follow up from last transplant appointment). Romi Rodriguez, RN PROGRAMMER documented in this encounter Plan of Treatment Not on filedocumented as of this encounter Visit Diagnoses Not on filedocumented in this encounter Care Teams Photoengraver Relationship Specialty Start Date End Date Mmoo Forbes PCP - General Family Practice 01/02/[address] [address] documented as of this encounter
--- OUTSIDE RECORDS SUMMARY | 2022-05-21 13:20 | XMS_ITS | Encounter Summary ---
:1950 Author Organization [place] Address [address] [facility] [place] [address] Care Team Providers Name Role Phone Momo Forbes Primary Care Provider Encounter Details Date Type Department Care Team Description 07/15/2017 Orders Only [facility] Loy Morales Kid ney replaced by [facility] MD transplant Laboratory [address] [facility] 500 [facility] [address] [place] [phone] (Wo rk) Social History Tobacco Use Types [...] by Results for this MASS SPECTROMETRY AM ORE BRIDGE OPERATOR transplant procedure are in the results section. documented in this encounter Results (ABNORMAL) Tacrolimus level (07/15/2017 10:48 AM ORE BRIDGE OPERATOR) [facility] Method Time Signature Tacrolimus Last 0000 07/19/2017 [facility] 07/15/17 10:[address] [facility] Tacrolimus 4.4 (L) 5.0 - 07/19/2017 [facility] Level 15.0 ug/L 2:38 PM [facility] Comment: Tacrolimus Reference [...] Blood specimen 07/15/2017 10:48 7 (specimen) AM ORE BRIDGE OPERATOR 10:47 AM ORE BRIDGE OPERATOR Orlando Richey MD LAB - BLOOD ORDERABLES Performing Organization Address City/State/ZIP Code Phon e Number [facility] 500 [place], [place] [phone] [place] [address] 500 [place], [place] [phone] [place] [address] documented in this encounter Visit Diagnoses Diagnosis Kidney replaced by transplant documented in this encounter Care Teams Housetrailer Servicer Relationship Specialty Start Date End Date Momo Forbes PCP - General Family Practice 01/02/14 [facility] [address] [place] [address] documented as of this encounter
--- OUTSIDE RECORDS SUMMARY | 2022-05-21 13:20 | XMS_ITS | Encounter Summary ---
:1950 Author Organization [place] Address [address] [facility] [place] [address] Care Team Providers Name Role Phone ForbesMomo prakash A Primary Care Provider Reason for Visit Reason Onset Date Comments Appointment 10/05/2017 Encounter Details Date Type Department Care Team Description 10/05/2017 Telephone [facility] Shiva Presley MD Appointment Nephrology Clinic [facility] [place] [address] [phone] Social History Tobacco Use Types Packs/Day Years [...] concernsahead of appointment. Romi Rodriguez RN OR RISK MANAGER documented in this encounter Plan of Treatment Not on filedocumented as of this encounter Visit Diagnoses Not on filedocumented in this encounter Care Teams Gasoline Service Attendant Relationship Specialty Start Date End Date Momo Forbes PCP - General Family Practice 01/02/14 [facility] [address] [place] [address] documented as of this encounter
--- OUTSIDE RECORDS SUMMARY | 2022-05-21 13:21 | XMS_ITS | Encounter Summary ---
:1950 Author Organization [place] Address [facility] [place] [address] Care Team Providers Name Role Phone Ingrid Santana RN Unavailable Unavailable Momo Forbes Primary Care Provider Reason for Visit Reason Onset Date Comments Patient Reminder 08/28/2015 Encounter Details Date Type Department Care Team Description 08/28/2015 Telephone Nephrology Yesenia Clements CMA Patient Reminder 2nd Floor, Clinic [address] [place] [phone] Social History Tobacco Use Types Packs/Day [...] Patient confirmed and understood. Yesenia Clements CMA B SEWER documented in this encounter Plan of Treatment Not on filedocumented as of this encounter Visit Diagnoses Not on filedocumented in this encounter Care Teams Manager Performance Relationship Specialty Start Date End Date Momo Forbes PCP - General Family Practice 01/02/14 [facility] [address] [place] [phone] Ingrid Santana, RN Registered Nurse Transplant 02/10/12 documented as of this encounter
--- OUTSIDE RECORDS SUMMARY | 2022-05-21 13:21 | XMS_ITS | Encounter Summary ---
:1950 Author Organization [place] Address [facility] [place] [address] Care Team Providers Name Role Phone Momo Forbes Primary Care Provider Jsoeph Quintana MD Unavailable Encounter Details Date Type Department Care Team Description 08/18/2016 External Order Results [facility] Nurse, [facility] 9 [place] [address] Social History Tobacco Use Types [...] 08/09/2016 12:21 PM Results for this RESULTS METAL SHEET ROLLER OPERATOR procedure are i n the results section. documented in this encounter Results (ABNORMAL) TXP External Lab Result (08/09/2016 12:21 PM METAL SHEET ROLLER OPERATOR) Analysis Performed At Patho logist Time [...] / / Volume Laterality 08/09/2016 12:21 PM METAL SHEET ROLLER OPERATOR Narrative [facility] - 08/18/2016 1:35 PM METAL SHEET ROLLER OPERATOR Verified by Jessica Major on 016. Patient Reported LABORATORY Performing Organization Address City/State/ZIP Code Phon e Number [facility] documented in this encounter Visit Diagnoses Not on filedocumented in this encounter Care Teams Field Training Agent Relationship Specialty Start Date End Date Momo Forbes PCP - General Family Practice 01/02/14 [facility] [address] [place], [place] [phone] Joseph Quintana, Assigned Nephrology 03/29/21 MD Provider [address] [place] [address] [address] [facility] [address] [place], [place] 797384 documented as of this encounter
--- OUTSIDE RECORDS SUMMARY | 2022-05-21 13:21 | XMS_ITS | Encounter Summary ---
:1950 Author Organization [place] Address [address] [place] [address]. [place] [address] Care Team Providers Name Role Phone Momo Forbes Primary Care Provider Reason for Visit Reason Onset Date Comments Transplant 12/02/2016 refill Encounter Details Date Type Department Care Team Description 12/02/2016 Refill [facility] Anita Joshi MD Transplant (refill) Nephrology Clinic [address] [place] [phone] [place] [address] (Wo rk) [address] [phone] Social History Tobacco Use Types Packs/Day Years [...] transplant documented in this encounter Care Teams Car [place] Relationship Specialty Start Date End Date Momo Forbes PCP - General Family Practice 01/02/14 [facility] [address] [place] [address] documented as of this encounter
--- OUTSIDE RECORDS SUMMARY | 2022-05-21 13:21 | XMS_ITS | Encounter Summary ---
:1950 Author Organization [place] Address [facility] [place] [address] Care Team Providers Name Role Phone Ingrid Santana RN Unavailable Unavailable Momo Forbes Primary Care Provider Reason for Visit Reason Onset Date Comments Transplant 12/31/2014 Encounter Details Date Type Department Care Team Description 12/31/2014 Telephone [facility] Transplant Ankita Ordoñez Transplant Clinic [address] [place] [address] [phone] Social History Tobacco Use Types Packs/Day [...] on filedocumented in this encounter Care Teams Intake Man Relationship Specialty Start Date End Date Forbes, Ton PCP - General Family Practice 01/02/14 [facility] [address] [place] [address] Ingrid Santana, RN Registered Nurse Transplant 02/10/12 documented as of this encounter
--- OUTSIDE RECORDS SUMMARY | 2022-05-21 13:21 | XMS_ITS | Encounter Summary ---
:1950 Author Organization [place] Address [facility] [place] [address] Care Team Providers Name Role Phone ForbesMomo prakash A Primary Care Provider Reason for Visit Reason Onset Date Comments Transplant Immunosuppression Management 08/13/2016 Encounter Details Date Type Department Care Team Description 08/13/[address] [facility] Shiva Kahn Transp lant Transplant Clinic RN Immunosuppression 9 [facility] Management [address] [address] [place] [address] [place], [place] 9[address] Social History Tobacco Use Types Packs/Day Years [...] Patient will repeat labs in 1-2 weeks. CH ENGINEER Telephone Encounter - Shiva Kahn, RN - 08/13/2016 7:42 AM CST Tacrolimus level 3.8 reported as 18-hour level. PLAN: Verify timing of labs tac dose and time of blood draw for tac level. Repeat tac level taking care to get a good 12-hour level (11-13 hours acceptable). TASK: Please call patient with questions and instructions per plan. CH ENGINEER documented in this encounter Plan of Treatment Not on filedocumented as of this encounter Visit Diagnoses Diagnosis Kidney replaced by transplant - Primary Aftercare following organ transplant Encounter for long-term current use of m edication documented in this encounter Care Teams Tree Cutter Relationship Specialty Start Date End Date Momo Forbes PCP - General Family Practice 01/02/14 [facility] [address] [place] [address] documented as of this encounter
--- OUTSIDE RECORDS SUMMARY | 2022-05-21 13:21 | XMS_ITS | Encounter Summary ---
:1950 Author Organization [place] Address [facility] [place] [address] Care Team Providers Name Role Phone ForbesMomo prakash A Primary Care Provider Encounter Details Date Type Department Care Team Description 10/25/2016 Orders Only [facility] Thrombocytopenia (H); [address] Aftercare following organ tr ansplant; 1st Floor Kidney replaced by transplan t; [place], [place] Encounter fo r long-term current use [...] Thrombocytopenia (H) Resu lts for this PM CAREER COACH procedure are i n the results section. BASIC METABOLIC Routine 10/25/2016 3:54 Aftercare following Re sults for this PANEL PM CAREER COACH organ transplant procedure are in Kidney replaced by the resul ts transplant section. Encounter for long-term current use of medication CBC WITH PLATELETS Routine 10/25/2016 3:54 Aftercare following Results for this PM CAREER COACH organ transplant procedure are in Kidney replaced by the [facility] ts transplant section. Encounter for long-term current use of medication PROTEIN RANDOM Routine 10/25/2016 3:52 Aftercare following Res ults for this URINE PM CAREER COACH organ transplant procedure are in Kidney replaced by the [facility] ts transplant section. Encounter for long-term current use of medication CREATININE URINE Routine 10/25/2016 3:52 Thrombocytopenia (H) Results for this CALCULATION ONLY PM CAREER COACH procedure a re in (LAB ONLY) the results section. documented in this encounter Results (ABNORMAL) Basic metabolic panel (10/25/2016 3:54 PM CAREER COACH) [facility] gist Method Time Signature Sodium 142 133 - 144 [facility] mmol/L [facility] Potassium 4.2 3.4 - 5.3 [facility] mmol/L [facility] Chloride 108 94 - 109 [facility] mmol/L [facility] Carbon Dioxide 28 20 - 32 [facility] mmol/L [facility] Anion Gap 7 3 - 14 [facility] mmol/L [facility] Glucose 120 (H) 70 - 99 [facility] mg/dL [facility] Urea Nitrogen 19 7 - 30 [facility] mg/dL [facility] Creatinine 1.39 (H) 0.66 - [facility] 1.25 mg/dL [facility] GFR Estimate 51 (L) >60 [facility] mL/min/1.7 [place] [facility]2 [facility] Comment: Non GFR Calc GFR Estimate If Black 62 >60 mL/min/1.7m2 U [facility] Comment: GFR Calc Calcium 9.4 8.5 - 10.1 mg/dL [facility] Specimen Anatomical Collection Method Collection Time Receive d Time (Source) Location / / Volume Laterality Blood specimen 10/25/2016 3:54 PM 017 3:55 (specimen) CAREER COACH PM CAREER COACH Chucho Joshi MD LAB - BLOOD ORDERABLES Performing Organization Address City/State/ZIP Code Phon e Number [address] [phone] [facility] (ABNORMAL) CBC with platelets (10/25/2016 3:54 PM CAREER COACH) Analysis Performed At Patho logist Time Signature WBC 5.1 4.0 - 11.0 [facility] 10e9/L [facility] RBC Count 5.50 4.4 - 5.9 [facility] 10e12/L [facility] Hemoglobin 15.5 13.3 - [facility] 17.7 g/dL [facility] Hematocrit 46.0 40.0 - [facility] 53.0 % [facility] MCV 84 78 - 100 [facility] fl [facility] MCH 28.2 26.5 - [facility] 33.0 pg [facility] MCHC 33.7 31.5 - [facility] 36.5 g/dL [facility] RDW 14.1 10.0 - [facility] 15.0 % [facility] Platelet Count 124 (L) 150 - 450 [facility] 10e9/L [facility] Specimen Anatomical Collection Method Collection Time Receive d Time (Source) Location / / Volume Laterality Blood specimen 10/25/2016 3:54 PM 017 3:55 (specimen) CAREER COACH PM CAREER COACH Chucho Joshi MD LAB - BLOOD ORDERABLES Performing Organization Address City/[facility] [place] [address] [facility] Folate RBC (10/25/2016 3:54 PM CAREER COACH) P athologist Signature HCT Within 46.0 % [facility] Past 24h [facility] Folate RBC 663 ng/mL [facility] Comment: Reference range: >=366 (Note) Performed by [facility], [address] [place] [id number] [email or web address], Geoff Reed MD, Lab. Director Specimen Anatomical Collection Method Collection Time Receive d Time (Source) Location / / Volume Laterality Blood specimen 10/25/2016 3:54 PM 017 3:55 (specimen) CAREER COACH PM CAREER COACH Chucho Joshi MD LAB - BLOOD ORDERABLES Performing Organization Address City/[facility]/ZIP Code Phon e Number [address] [phone] [facility] Creatinine urine calculation only (10/25/2016 3:52 PM CAREER COACH) P athologist Signature Creatinine 152 mg/dL [facility] Specimen Anatomical Collection Method Collection Time Receive d Time (Source) Location / / Volume Laterality 10/25/2016 3:52 PM 201 7 4:12 CAREER COACH PM CAREER COACH Chucho Joshi MD LAB - URINE ORDERABLES Performing Organization Address City/State/ZIP Code Phon e Number M [facility] [address] [place] [address] [facility] [address] [place] [phone], [place] [phone] (ABNORMAL) Protein random urine (10/25/2016 3:52 PM CAREER COACH) Analysis Performed At Patho logist Time Signature Protein Random 0.48 g/L [facility] Protein Total 0.31 (H) 0 - 0.2 [place] Urine g/gr g/g Cr [facility] Specimen Anatomical Collection Method Collection Time Receive d Time (Source) Location / / Volume Laterality Urine specimen 10/25/2016 3:52 PM 017 4:12 (specimen) CAREER COACH PM CAREER COACH Chucho Joshi MD LAB - URINE ORDERABLES Performing Organization Address City/State/ZIP Code Phon e Number [facility] [address] [place] [address] [facility] [address] [place] [address], [place] [phone] documented in this encounter Visit Diagnoses Diagnosis Thrombocytopenia (H) Thrombocytopenia, unspecified Aftercare following organ transplant Kidney replaced by transplant Encounter for long-term current use of m edication documented in this encounter Care Teams Fire Control Officer Relationship Specialty Start Date End Date Momo Forbes PCP - General Family Practice 01/02/14 [facility] [address] [place] [address] documented as of this encounter
--- OUTSIDE RECORDS SUMMARY | 2022-05-21 13:21 | XMS_ITS | Encounter Summary ---
:1950 Author Organization [place] Address [facility] [place] [address] Care Team Providers Name Role Phone Ingrid Santana RN Unavailable Unavailable Momo Forbes Primary Care Provider Joseph Quintana MD Unavailable Encounter Details Date Type Department Care Team Description 02/03/2015 External Order Results The Transplant Ce nter Nurse, [facility] 2nd Floor, Clinic [address] [phone] Social History Tobacco Use Types Packs/Day Years [...] External Lab Result (01/28/2015 8:56 AM CDT) [facility] Method Time Signature Sodium (External) 140 [...] filedocumented in this encounter Care Teams Management Nurse Rn Relationship Specialty Start Date End Date Momo Forbes PCP - General Family Practice 01/02/14 [facility] [address] [place] [address] Ingrid Santana, RN Registered Nurse Transplant 02/10/12 Joseph Quintana, Assigned Nephrology 03/29/21 MD Provider [address] [place] [address] [address] [place], [place] [id number] documented as of this encounter
--- OUTSIDE RECORDS SUMMARY | 2022-05-21 13:21 | XMS_ITS | Encounter Summary ---
:1950 Author Organization [place] Address [address] [place] [address]. [place] [address] Care Team Providers Name Role Phone Momo Forbes Primary Care Provider Reason for Visit Reason Onset Date Comments Transplant 02/19/2016 refill Encounter Details Date Type Department Care Team Description 02/19/2016 Refill The Transplant Deysi Burns MD Transplant (refill) 2nd Floor, Clinic [phone] [place] [address] [facility] [place] [address] Social History Tobacco Use Types [...] transplant documented in this encounter Care Teams Electric Distribution Checker Relationship Specialty Start Date End Date Momo Forbes PCP - General Family Practice 01/02/14 [facility] [address] [place], [place] [phone] documented as of this encounter
--- OUTSIDE RECORDS SUMMARY | 2022-05-21 13:21 | XMS_ITS | Encounter Summary ---
:1950 Author Organization [place] Address [address] [place] [address]. [place] [address] Care Team Providers Name Role Phone Momo Forbes Primary Care Provider Reason for Visit Reason Onset Date Comments Transplant Pharmacy Medication Review 02/05/2016 Encounter Details Date Type Department Care Team Description 02/05/2016 Telephone [facility] Nani Humphrey, [facility] Transplant Pharmacy [address] [facility] [place] [address] [place] [phone] [place] [address] (Wo rk) Social History Tobacco Use Types [...] on filedocumented in this encounter Care Teams Coffin Maker Relationship Specialty Start Date End Date Momo Forbes PCP - General Family Practice 01/02/14 [facility] [address] [place] [address] documented as of this encounter
--- OUTSIDE RECORDS SUMMARY | 2022-05-21 13:21 | XMS_ITS | Encounter Summary ---
:1950 Author Organization [place] Address [address] [facility] [place] [address] Care Team Providers Name Role Phone Momo Forbes Primary Care Provider Reason for Visit Reason Onset Date Comments Pre Visit Planning - Unable To Reach 10/14/2016 Encounter Details Date Type Department Care Team Description 10/14/2016 Telephone [facility] Anita Joshi MD Pre Visit Planning - Nephrology Clinic [address] [place] [address] [place] To Reach [address] [address] [phone] Social History Tobacco Use Types Packs/Day Years [...] is office from Clinic 3B at the [facility]. We are calling to remind you of your upcoming Nephrology appointment on 10/25/16 at 440pm. Please arrive about 1 hours prior to your appointment time for labs. Also, please bring an updated medication list or your labeled medication bottles with you to your appointment. If you have any questions or would like to cancel or reschedule your appointment, please call us at [phone]. You are welcome to have your labs done up to a week before your appointment at any [place] or [facility] facility. If you have your labs completed before your appointment, please still come 30 minutes early for check-in MONROE ZURITA CMA TERIA COUNTER ATTENDANT documented in this encounter Plan of Treatment Not on filedocumented as of this encounter Visit Diagnoses Not on filedocumented in this encounter Care Teams Edging Catcher Relationship Specialty Start Date End Date Momo Forbes PCP - General Family Practice 01/02/14 [facility] [address] [place] [address] documented as of this encounter
--- OUTSIDE RECORDS SUMMARY | 2022-05-21 13:21 | XMS_ITS | Encounter Summary ---
:1950 Author Organization [place] Address [facility] [place] [address] Care Team Providers Name Role Phone ForbesMomo prakash A Primary Care Provider Reason for Visit Reason Comments RECHECK Kidney follow up Encounter Details Date Type Department Care Team Description 10/25/2016 Office Visit [facility] Anita Joshi MD Renal hypertension, Nephrology Clinic [address] [place] [address] 1-4 or [place] [address] unspecified chronic [address] [place], [place] [address] (Primary Dx) [address] [phone] Social History Tobacco Use Types Packs/Day Years [...] Comments Blood Pressure 168/83 10/25/2016 4:39 PM CONVERTIBLE TOP INSTALLER Pulse 55 10/25/2016 4:39 PM CONVERTIBLE TOP INSTALLER Temperature 36.8 ??C (98.3 ??F) 10/25/2016 4:39 PM CONVERTIBLE TOP INSTALLER Respiratory Rate 18 10/25/2016 4:39 PM CONVERTIBLE TOP INSTALLER Oxygen Saturation - - Inhaled Oxygen Concentration - - Weight 138.2 kg (304 lb 9.6 oz) 10/25/2016 4:39 PM CONVERTIBLE TOP INSTALLER Height 182.9 cm (6') 10/25/2016 4:39 PM CONVERTIBLE TOP INSTALLER Body Mass Index 41.31 10/25/2016 4:39 PM CONVERTIBLE TOP INSTALLER documented in this encounter Progress Notes Chucho [...] (304 lb 9.6 oz). Medication Reconciliation: complete ERTIBLE TOP INSTALLER documented in this encounter Plan of Treatment Not on filedocumented as of this encounter Visit Diagnoses Diagnosis Renal hypertension, stage 1-4 or unspeci fied chronic kidney disease - Primary documented in this encounter Care Teams Sap Technical Architect Relationship Specialty Start Date End Date Momo Forbes PCP - General Family Practice 01/02/14 [facility] [address] [place] [address] documented as of this encounter
--- OUTSIDE RECORDS SUMMARY | 2022-05-21 13:21 | XMS_ITS | Encounter Summary ---
:1950 Author Organization [place] Address [address] [place] [address] Care Team Providers Name Role Phone Momo Forbes A Primary Care Provider Encounter Details Date Type Department Care Team Description 07/22/2016 Orders Only [facility] Mariano, Joseph Perdomo isael, [facility] jm DC [address] [facility] 717 [place], [place] [phone] [address] [place] [address] [place] [address] (Wo rk) Social History Tobacco [...] Res ults for this MASS SPECTROMETRY PM MEDIA DIRECTOR procedure are in the results section. documented in this encounter Results (ABNORMAL) Tacrolimus level (08/09/2016 12:15 PM MEDIA DIRECTOR) [facility] Method Time Signature Tacrolimus Last 08/08/[address] Tacrolimus 3.8 (L) 5.0 - [facility] Level 15.0 ug/L [facility] Comment: Tacrolimus Reference [...] its perform ance characteristics determined by the [facility], ??Special Chemistry Laboratory. It has not been cleared or approved by the FDA . The laboratory is regulated under CLIA as qualified to perform high-complexity testing. This test is used for clinical purposes. It should not be regarded as investigational or for research. Specimen Anatomical Collection Method Collection Time Receive d Time (Source) Location / / Volume Laterality 08/09/2016 12:15 08/11/2016 PM MEDIA DIRECTOR 10:15 AM MEDIA DIRECTOR Deysi Alicea MD LAB - BLOOD ORDERABLES Performing Organization Address City/State/ZIP Code Phon e Number [facility] [address] documented in this encounter Visit Diagnoses Not on filedocumented in this encounter Care Teams Truss Designer Relationship Specialty Start Date End Date Momo Forbes PCP - General Family Practice 01/02/14 [facility] [address] [place] [address] documented as of this encounter
--- OUTSIDE RECORDS SUMMARY | 2022-05-21 13:21 | XMS_ITS | Encounter Summary ---
:1950 Author Organization [place] Address [address] [place] [address]. [place] [address] Care Team Providers Name Role Phone Momo Forbes Primary Care Provider Reason for Visit Reason Onset Date Comments Transplant 02/06/2016 refill Encounter Details Date Type Department Care Team Description 02/06/2016 Refill [facility] Cristy Chen LPN T ransplant (refill) Transplant Clinic [address] [place] [address] [phone] Social History Tobacco Use Types Packs/Day [...] documented in this encounter Care Teams Fish Inspector Relationship Specialty Start Date End Date Momo Forbes PCP - General Family Practice 01/02/14 [facility] [address] [place] [address] documented as of this encounter
--- OUTSIDE RECORDS SUMMARY | 2022-05-21 13:21 | XMS_ITS | Encounter Summary ---
:1950 Author Organization [place] Address [address] [place] [address] Care Team Providers Name Role Phone ForbesMomo santiago A Primary Care Provider Encounter Details Date Type Department Care Team Description 02/20/2016 Orders Only [facility] Mariano, Joseph Perdomo isael, [facility] jm MICHELE 500 [facility] 717 [place], [place] [phone] [address] [place] [address] [place] [address] (Wo rk) Social History Tobacco [...] Tacrolimus level (03/17/2016 10:44 AM CDT) [facility] Method Time Signature Tacrolimus Last 2100 [facility] Dose 03/16/16 [facility] Tacrolimus 4.2 (L) 5.0 - [facility] Level 15.0 ug/L [facility] Comment: Tacrolimus Reference Range [...] its perform ance characteristics determined by the [facility], ??Special Chemistry Laboratory. It has [...] Number [facility] [address] [place], [place] [phone] [place] [address] documented in this encounter Visit Diagnoses Not on filedocumented in this encounter Care Teams Metal Furniture Glazier Relationship Specialty Start Date End Date Momo Forbes PCP - General Family Practice 01/02/14 [facility] [address] [place] [address] documented as of this encounter
--- OUTSIDE RECORDS SUMMARY | 2022-05-21 13:21 | XMS_ITS | Encounter Summary ---
:1950 Author Organization [place] Address [facility] [place] [address] Care Team Providers Name Role Phone Ingrid Santana RN Unavailable Unavailable Momo Forbes Primary Care Provider Reason for Visit Reason Onset Date Comments Refill Request 02/10/2015 mycophenolate, smz/t mp Encounter Details Date Type Department Care Team Description 02/10/2015 Refill The Transplant Deysi Bursn, Refill Request 2nd Floor, Clinic 2A MD (mycophenolate, [facility] smz/tmp) Building [address] [place] [id number] [place] [address] [place] [address] Social History Tobacco Use Types [...] Miscellaneous Notes Telephone Encounter - Gayathri Orta Chloe - 02/10/2015 1:44 PM CDT Mycophenolate 250mg Last Fill Date: 01/09/15 Last Fill Quantity: 240 [id number] Last Fill Date: 01/09/15 Last Fill Quantity: 31 Gayathri Orta [facility] [address] [place] [phone] documented in this encounter Plan of Treatment Not on filedocumented as of this encounter Visit Diagnoses Diagnosis S/P kidney transplant - Primary Kidney replaced by transplant documented in this encounter Care Teams Block Sealer Relationship Specialty Start Date End Date Momo Forbes PCP - General Family Practice 01/02/[address] [address] Ingrid Santana, RN Registered Nurse Transplant 02/10/12 documented as of this encounter
--- OUTSIDE RECORDS SUMMARY | 2022-05-21 13:21 | XMS_ITS | Encounter Summary ---
:1950 Author Organization [place] Address [facility] [place] [address] Care Team Providers Name Role Phone Ingrid Santana RN Unavailable Unavailable Momo Forbes Primary Care Provider Joseph Quintana MD Unavailable Encounter Details Date Type Department Care Team Description 11/07/2014 External Order Results The Transplant Ce nter Nurse, [facility] 2nd Floor, Clinic 2A [address] [phone] Social History Tobacco Use Types Packs/Day Years [...] (11/05/2014 8:32 AM CDT) Analysis Performed At Patho logist [...] Estimated >60 >60 LABDE SCAN (if ml/min/1.7 [place]) 3m2 (External) GFR Estimated 51 (L) >60 [...] Volume Laterality 11/05/2014 8:32 AM CDT Narrative JESSICA PFT - 11/07/2014 12:25 PM CDT Verified by Freddy Mehta on 11/07. Patient Reported LABORATORY Performing Organization Address City/State/ZIP Code Phon e Number [facility]DE SC[facility] documented in this encounter Visit Diagnoses Not on filedocumented in this encounter Care Teams Garde Manger Relationship Specialty Start Date End Date Momo Forbes PCP - General Family Practice 01/02/14 [facility] [address] [place] [address] Ingrid Santana, RN Registered Nurse Transplant 02/10/12 Joseph Quintana, Assigned Nephrology 03/29/21 MD Provider [address] [place] [address] [address] [place], [place] [address] documented as of this encounter
--- OUTSIDE RECORDS SUMMARY | 2022-05-21 13:21 | XMS_ITS | Encounter Summary ---
:1950 Author Organization [place] Address [facility] [place] [address] Care Team Providers Name Role Phone ForbesMomo prakash A Primary Care Provider Reason for Visit Reason Onset Date Comments Refill Request 09/28/2016 Encounter Details Date Type Department Care Team Description 09/28/2016 Refill [facility] Anita Joshi MD Refill Request Nephrology Clinic [address] [place] [address] [place] [address] [phone] Social History Tobacco Use Types Packs/Day Years [...] 1:51 PM CST Last Office Visit with Data Analytics Chief Scientist: March 2016. Medication refilled per Nephrology Clinic protocol. Janes Jauregui RN ESSOR OF PUBLIC ADMINISTRATION documented in this encounter Plan of Treatment Not on filedocumented as of this encounter Visit Diagnoses Diagnosis Reactive depression - Primary Dysthymic disorder documented in this encounter Care Teams Criminal Justice Department Chair Relationship Specialty Start Date End Date Momo Forbes PCP - General Family Practice 01/02/14 [facility] [address] [place] [address] documented as of this encounter
--- OUTSIDE RECORDS SUMMARY | 2022-05-21 13:21 | XMS_ITS | Encounter Summary ---
:1950 Author Organization [place] Address [address] [place] [address] Care Team Providers Name Role Phone Momo Forbes Primary Care Provider Reason for Visit Reason Onset Date Comments Transplant 05/10/2016 refill Encounter Details Date Type Department Care Team Description 05/10/2016 Refill The Transplant Chucho Perez MD Transplant (refill) 2nd Floor, Clinic [address]A [address] [place] [address] [facility] [address] Social History Tobacco Use Types [...] send new rx Thank you Janelle Flowers [facility] [phone] documented in this encounter Plan of Treatment Not on filedocumented as of this encounter Visit Diagnoses Diagnosis Kidney transplanted - Primary Kidney replaced by transplant documented in this encounter Care Teams Crusher Loader Equipment Operator Relationship Specialty Start Date End Date Momo Forbes PCP - General Family Practice 01/02/14 [place] [id number] documented as of this encounter
--- OUTSIDE RECORDS SUMMARY | 2022-05-21 13:21 | XMS_ITS | Encounter Summary ---
:1950 Author Organization [place] Address [facility] [place] [address] Care Team Providers Name Role Phone Ingrid Santana RN Unavailable Unavailable Momo Forbes Primary Care Provider Encounter Details Date Type Department Care Team Description 12/30/2014 Orders Only The Transplant Shiva Arias RN -donor kidney 2nd Floor, Clinic 2A [facility] transplant recipient Tmomy Guillermoteen [address] [facility] (Primary Dx) Building [address] [place] [address] [place] [address] Social History Tobacco Use Types [...] as of this encounter Progress Notes Shiva Kahn RN - 12/30/2014 4:17 PM CDT Tacrolimus [...] transplant documented in this encounter Care Teams Machine Adjuster Leader Relationship Specialty Start Date End Date Momo Forbes PCP - General Family Practice 01/02/[address] [address] Ingrid Santana, RN Registered Nurse Transplant 02/10/12 documented as of this encounter
--- OUTSIDE RECORDS SUMMARY | 2022-05-21 13:21 | XMS_ITS | Encounter Summary ---
:1950 Author Organization [place] Address [address] [place] [address]. [place] [address] Care Team Providers Name Role Phone Momo Forbes Primary Care Provider Reason for Visit Reason Onset Date Comments Transplant 01/16/2016 refill Encounter Details Date Type Department Care Team Description 01/16/2016 Refill The Transplant Deysi Burns MD Transplant (refill) 2nd Floor, Clinic [id number] [place] [address] [facility] [place] [address] Social History Tobacco Use Types [...] transplant documented in this encounter Care Teams Janitor Cleaner Relationship Specialty Start Date End Date Momo Forbes PCP - General Family Practice 01/02/14 [facility] 1999 [place], [place] [id number] documented as of this encounter
--- OUTSIDE RECORDS SUMMARY | 2022-05-21 13:21 | XMS_ITS | Encounter Summary ---
:1950 Author Organization [place] Address [facility]0 [facility] [place] [address] Care Team Providers Name Role Phone Ingrid Santana RN Unavailable Unavailable Momo Forbes Primary Care Provider Joseph Quintana MD Unavailable Encounter Details Date Type Department Care Team Description 08/14/2015 External Order Results The Transplant Ce nter Nurse, [facility] 2nd Floor, Clinic [address]A [address] [phone] Social History Tobacco Use Types Packs/Day Years [...] 4:41 PM Results f or this RESULTS COMMAND CENTER OFFICER procedure are i n the results section. documented in this encounter Results (ABNORMAL) TXP External Lab Result (08/12/2015 4:41 PM COMMAND CENTER OFFICER) Analysis Performed At Patho logist Time Signature [...] 59 (L) >60 LABDE SCAN (if mL/min/1.7 South African) 3/m2 (External) GFR Estimated 48 (L) >60 [...] / / Volume Laterality 08/12/2015 4:41 PM COMMAND CENTER OFFICER Narrative JESSICA PFT - 08/14/2015 9:25 AM COMMAND CENTER OFFICER Verified by Freddy Mehta on 08/14. Patient Reported LABORATORY Performing Organization Address City/State/ZIP Code Phon e Number [facility]DE [facility] documented in this encounter Visit Diagnoses Not on filedocumented in this encounter Care Teams Plastics Fitter Relationship Specialty Start Date End Date Momo Forbes PCP - General Family Practice 01/02/14 [facility] [address] [place] [address] Ingrid Santana, RN Registered Nurse Transplant 02/10/12 Joseph Quintana, Assigned Nephrology 03/29/21 MD Provider [address] [place] [address] [address] [place] [address] documented as of this encounter
--- OUTSIDE RECORDS SUMMARY | 2022-05-21 13:21 | XMS_ITS | Encounter Summary ---
:1950 Author Organization [place] Address [address] [place] [address]. [place] [address] Care Team Providers Name Role Phone Momo Forbes Primary Care Provider Reason for Visit Reason Onset Date Comments Transplant 03/15/2016 refill Encounter Details Date Type Department Care Team Description 03/15/2016 Refill [facility] Cristy Chen LPN T ransplant (refill) Transplant Clinic [address] [place] [address] [phone] Social History Tobacco Use Types Packs/Day [...] transplant documented in this encounter Care Teams Criminal Investigator Customs Relationship Specialty Start Date End Date Momo Forbes PCP - General Family Practice 01/02/14 [facility] [address] [place] [address] documented as of this encounter
--- OUTSIDE RECORDS SUMMARY | 2022-05-21 13:21 | XMS_ITS | Encounter Summary ---
:1950 Author Organization [place] Address [address] [place] [address] Care Team Providers Name Role Phone Ingrid Santana RN Unavailable Unavailable Momo Forbes Primary Care Provider Encounter Details Date Type Department Care Team Description 07/22/2015 Orders Only [facility] Dereck Dangelo MD [facility] Laborato ry 420 [facility] 195 [address] [place], [place] [phone] [place] [address] [phone] Social History Tobacco Use Types Packs/Day Years [...] PM R esults for this MASS SPECTROMETRY ENGINEERING INSTRUCTOR procedure are in the results section. documented in this encounter Results Tacrolimus level (08/12/2015 4:35 PM ENGINEERING INSTRUCTOR) [facility] Method Time Signature Tacrolimus Last 0700 [facility] Dose 08/12/15 [facility] Tacrolimus 5.3 5.0 - [facility] Level 15.0 ug/L [facility] Comment: Tacrolimus Reference Range Kidney Transplant [...] its perform ance characteristics determined by the [facility], ??Special Chemistry Laboratory. It has not been cleared or approved by the FDA . The laboratory is regulated under CLIA as qualified to perform high-complexity testing. This test is used for clinical purposes. It should not be regarded as investigational or for research. Specimen Anatomical Collection Method Collection Time Receive d Time (Source) Location / / Volume Laterality 08/12/2015 4:35 PM 5 9:11 ENGINEERING INSTRUCTOR AM ENGINEERING INSTRUCTOR Mingo Dangelo MD LAB - BLOOD ORDERABLES Performing Organization Address City/State/ZIP Code Phon e Number [facility] [address] documented in this encounter Visit Diagnoses Not on filedocumented in this encounter Care Teams Chief Passenger Ship Steward/Stewardess Relationship Specialty Start Date End Date Momo Forbes PCP - General Family Practice 01/02/14 [facility] [address] [place] [address] Ingrid Santana, RN Registered Nurse Transplant 02/10/12 documented as of this encounter
--- OUTSIDE RECORDS SUMMARY | 2022-05-21 13:21 | XMS_ITS | Encounter Summary ---
:1950 Author Organization [place] Address [facility] [place] [address] Care Team Providers Name Role Phone Leidy Momo He Primary Care Provider Reason for Visit Reason Onset Date Comments Transplant 03/30/2016 refill Encounter Details Date Type Department Care Team Description 03/30/2016 Refill The Transplant Deysi Burns MD Transplant (refill) 2nd Floor, Clinic [address]A [phone] [place] [address] [facility] [place] [address] Social History Tobacco Use Types [...] Date: 02/19/16 Quantity: 240 Thanks!! Janelle Jackson [facility] documented in this encounter Plan of Treatment Not on filedocumented as of this encounter Visit Diagnoses Diagnosis Kidney transplanted - Primary Kidney replaced by transplant documented in this encounter Care Teams Provider Relations Consultant Relationship Specialty Start Date End Date Momo Forbes PCP - General Family Practice 01/02/[address] [address] documented as of this encounter
--- OUTSIDE RECORDS SUMMARY | 2022-05-21 13:21 | XMS_ITS | Encounter Summary ---
:1950 Author Organization [place] Address [facility] [place] [address] Care Team Providers Name Role Phone oMmo Forbes Primary Care Provider Joseph Quintana MD Unavailable Encounter Details Date Type Department Care Team Description 03/18/2016 External Order Results [facility] Nurse, [facility] Transplant Clinic [address] [place] [address] Social History Tobacco Use Types [...] External Lab Result (03/17/2016 10:45 AM CDT) [facility] Method Time Signature Sodium (External) 139 [...] on filedocumented in this encounter Care Teams Staffing Manager Relationship Specialty Start Date End Date Momo Forbes PCP - General Family Practice 01/02/14 [facility] [address] [place] [address] Joseph Quintana, Assigned Nephrology 03/29/21 MD Provider [address] [place] [address] 1932 [place] [address] documented as of this encounter
--- OUTSIDE RECORDS SUMMARY | 2022-05-21 13:21 | XMS_ITS | Encounter Summary ---
:1950 Author Organization [place] Address [facility] [place] [address] Care Team Providers Name Role Phone Forbes, Ton Primary Care Provider Reason for Visit Reason Comments RECHECK 6 mo follow up,christiano cruz Encounter Details Date Type Department Care Team Description 04/20/2016 Office Visit [facility] Chucho Joshi, Renal hypertension, stage 1-4 or unspecified chronic kidney disease (Primary Dx); Nephrology Clinic Reactive depression; [address] Thrombocytopenia (H) 909 [facility] RANJAN [address] [place] [address] Social History Tobacco Use Types Packs/Day [...] Body Mass Index 41.55 09/02/2015 4:32 PM DIRECTOR SPEECH documented in this encounter Progress Notes Chucho [...] encounter Results Folate RBC (10/25/2016 3:54 PM DIRECTOR SPEECH) athologist Signature HCT Within 46.0 % [address] Folate RBC 663 ng/mL [facility] Comment: Reference range: >=366 (Note) Performed by [employer], [address] [place] [address] [email or web address], Geoff Reed MD, Lab. Director Specimen Anatomical Collection Method Collection Time Receive d Time (Source) Location / / Volume Laterality Blood specimen 10/25/2016 3:54 PM 017 3:55 (specimen) DIRECTOR SPEECH PM DIRECTOR SPEECH Chucho Joshi MD LAB - BLOOD ORDERABLES Performing Organization Address City/State/[facility] Code Phon e Number [address] [address] [facility] documented in this encounter Visit Diagnoses Diagnosis Renal hypertension, stage 1-4 or unspeci fied chronic kidney disease - Primary Reactive depression Dysthymic disorder Thrombocytopenia (H) Thrombocytopenia, unspecified documented in this encounter Care Teams Printer Slotter Helper Relationship Specialty Start Date End Date Momo Forbes PCP - General Family Practice 01/02/[address] [address] documented as of this encounter
--- OUTSIDE RECORDS SUMMARY | 2022-05-21 13:21 | XMS_ITS | Encounter Summary ---
:1950 Author Organization [place] Address [facility] [place] [address] Care Team Providers Name Role Phone Ingrid Santana RN Unavailable Unavailable Momo Forbes Primary Care Provider Encounter Details Date Type Department Care Team Description 12/27/2014 External Order Results The Transplant Ce ntjakob Nurse, [facility] 2nd Floor, Clinic [address]A [address] [place] [address] Social History Tobacco Use Types [...] External Lab Result (12/25/2014 9:48 AM CDT) [facility] Method Time Signature Sodium 138 135 [...] 51 (L) >60 LABDE SCAN (if ml/min/1. Burkinan) 73m2 (External) GFR Estimated 42 (L) >60 [...] on filedocumented in this encounter Care Teams Literary Writer Relationship Specialty Start Date End Date Momo Forbes PCP - General Family Practice 01/02/14 [place] [id number] Ingrid Santana, RN Registered Nurse Transplant 02/10/12 documented as of this encounter
--- OUTSIDE RECORDS SUMMARY | 2022-05-21 13:21 | XMS_ITS | Encounter Summary ---
:1950 Author Organization [place] Address [address] [place] [address]. [place] [address] Care Team Providers Name Role Phone Ingrid Santana RN Unavailable Unavailable Momo Forbes Primary Care Provider Encounter Details Date Type Department Care Team Description 08/29/2015 Orders Only The Transplant Deepa Morgan Aftercare following organ tr ansplant (Primary Dx); 2nd Floor, Clinic 2A Saima Kidney replaced by transplan t; Tommy Wilburn [facility] er for long-term current use of medication [address] [phone] Social History Tobacco Use Types Packs/Day Years [...] documented in this encounter Care Teams Social Security Benefits Interviewer Relationship Specialty Start Date End Date Momo Forbes PCP - General Family Practice 01/02/14 [facility] [address] [place] [address] Ingrid Santana, RN Registered Nurse Transplant 02/10/12 documented as of this encounter
--- OUTSIDE RECORDS SUMMARY | 2022-05-21 13:21 | XMS_ITS | Encounter Summary ---
:1950 Author Organization [place] Address [facility] [place] [address] Care Team Providers Name Role Phone Ingrid Santana RN Unavailable Unavailable Momo Forbes Primary Care Provider Reason for Referral Consultation - Closed Specialty Diagnoses / Procedures Referred By Contact Refer red To Contact Diagnoses Morbid obesity due to excess calories (H) Deysi Alicea MD [facility] [address] [place] [address] Referral ID Status Reason Start Date Expiration Date Visits Requ ested Visits Authorized [id number] Closed 09/02/2015 09/01/2016 1 1 EAR SUPERVISING OPERATOR Reason for Visit Reason Comments RECHECK Follow up Kidney TX 4 Encounter Details Date Type Department Care Team Description 09/02/2015 Office Visit Nephrology Deysi Alicea, S/P kidney transplant (Prima ry Dx); 2nd Floor, Clinic 2A Morbid obesity due to excess calories (H ) Tommy Wilburn [address] [place] [address] [place] [address] (Wo rk) [address] [phone] Social History Tobacco Use Types Packs/Day Years [...] Comments Blood Pressure 128/72 09/02/2015 4:32 PM NUCLEAR SUPERVISING OPERATOR Pulse 61 09/02/2015 4:32 PM NUCLEAR SUPERVISING OPERATOR Temperature 36.7 ??C (98 ??F) 09/02/2015 4:32 PM NUCLEAR SUPERVISING OPERATOR Respiratory Rate - - Oxygen Saturation 94% 09/02/2015 4:32 PM NUCLEAR SUPERVISING OPERATOR Inhaled Oxygen Concentration - - Weight 141.8 kg (312 lb 9.6 oz) 09/02/2015 4:32 PM NUCLEAR SUPERVISING OPERATOR Height 182.9 cm (6' 0.01) 09/02/2015 4:32 PM NUCLEAR SUPERVISING OPERATOR Body Mass Index 42.39 09/02/2015 4:32 PM NUCLEAR SUPERVISING OPERATOR documented in this encounter Progress Notes Deysi [...] discharged on Cumadin; Cumadin was stopped by public space attendant during the follow up visit, as [...] mentation appears normal and affect normal Results: EAR SUPERVISING OPERATOR documented in this encounter Nursing Notes Teresa [...] oz). BP completed using cuff size: large EAR SUPERVISING OPERATOR documented in this encounter [...] ) documented in this encounter Care Teams Food And Beverage Attendant Relationship Specialty Start Date End Date Momo Forbes PCP - General Family Practice 01/02/14 [facility] [address] [place] [address] Ingrid Santana, RN Registered Nurse Transplant 02/10/12 documented as of this encounter
--- OUTSIDE RECORDS SUMMARY | 2022-05-21 13:21 | XMS_ITS | Encounter Summary ---
:1950 Author Organization [place] Address [facility] [place] [address] Care Team Providers Name Role Phone Ingrid Santana RN Unavailable Unavailable Momo Forbes Primary Care Provider Reason for Visit Reason Onset Date Comments Refill Request 06/23/2015 amlodipine Encounter Details Date Type Department Care Team Description 06/23/2015 Refill [facility] [address] Refill Request Physicians Orestes Hernandez MD (amlodipine) Tommy [facility] Building [place] 4th Floor, Clinic 4B [address] [phone] (Wo rk) [address] [phone] Social History Tobacco Use Types Packs/Day Years [...] # refills: 3 Last Office Visit with [facility] primary care provider: 05/14/2014 Future Office Visit: BP Readings from Last 3 Encounters: 05/14/14 141/65 05/13/14 139/73 04/09/14 163/78 [facility] [phone] GHT CLERK documented in this encounter Plan of Treatment Not on filedocumented as of this encounter Visit Diagnoses Diagnosis HTN (hypertension) - Primary Unspecified essential hypertension documented in this encounter Care Teams Utility Worker Forge Relationship Specialty Start Date End Date Momo Forbes PCP - General Family Practice 01/02/[address] [address] Ingrid Santana, RN Registered Nurse Transplant 02/10/12 documented as of this encounter
--- OUTSIDE RECORDS SUMMARY | 2022-05-21 13:21 | XMS_ITS | Encounter Summary ---
:1950 Author Organization [place] Address [address] [place] [address]. [place] [address] Care Team Providers Name Role Phone Momo Forbes Primary Care Provider Reason for Visit Reason Onset Date Comments Transplant 02/19/2016 refill Encounter Details Date Type Department Care Team Description 02/19/2016 Refill The Transplant Deysi Burns MD Transplant (refill) 2nd Floor, Clinic 2A [phone] [place] [address] [facility] [address] Social History Tobacco Use Types [...] transplant documented in this encounter Care Teams Cook Fry Relationship Specialty Start Date End Date Momo Forbes PCP - General Family Practice 01/02/14 [facility] [address] [place], [place] [phone] documented as of this encounter
--- OUTSIDE RECORDS SUMMARY | 2022-05-21 13:21 | XMS_ITS | Encounter Summary ---
:1950 Author Organization [place] Address [address] [place] [address]. [place] [address] Care Team Providers Name Role Phone Ingrid Santana RN Unavailable Unavailable Momo Forbes Primary Care Provider Reason for Visit Reason Onset Date Comments Refill Request 04/21/2015 crestor Encounter Details Date Type Department Care Team Description 04/21/[address] [facility] [address] Refill Request Physicians Orestes Hernandez MD (crestor) Tommy [facility] Building [place] 4th Floor, Clinic 4B [address] [phone] (Wo rk) [address] [phone] Social History Tobacco Use Types Packs/Day Years [...] Telephone Encounter - Gayathri Orta Chloe - 04/21/2015 1:29 PM CDT Crestor 10mg Last Written Prescription Date: 04/09/14 Last Fill Quantity: 30, # refills: 11 Last Office [place] [facility] primary care provider: 05/14/14 CHOL 126 02/06/2014 HDL 35 02/06/2014 LDL 71 02/06/2014 TRIG 100 02/06/2014 CHOLHDLRATIO 3.6 02/06/2014 Gayathri Orta [facility] [facility] [address] documented in this encounter Plan of Treatment Not on filedocumented as of this encounter Visit Diagnoses Diagnosis DM (diabetes mellitus), type 2 (H) - Ana ashley Type II or unspecified type diabetes aung litus without mention of complication, not stated as uncontrolled Other and unspecified hyperlipidemia documented in this encounter Care Teams Phonograph Mechanic Relationship Specialty Start Date End Date Momo Forbes PCP - General Family Practice 01/02/[address] [address] Ingrid Santana, RN Registered Nurse Transplant 02/10/12 documented as of this encounter
--- OUTSIDE RECORDS SUMMARY | 2022-05-21 13:21 | XMS_ITS | Encounter Summary ---
:1950 Author Organization [place] Address [address] [place] [address] Care Team Providers Name Role Phone Ingrid Santana RN Unavailable Unavailable Momo Forbes Primary Care Provider Encounter Details Date Type Department Care Team Description 12/20/2014 Orders Only [facility] Loris Spong, Joseph Conor isael, [facility] 500 [facility] [address] [place] [phone] [place] [address] 495 [place] [address] (Wo rk) Social History [...] Results Tacrolimus level (12/25/2014 9:45 AM CDT) [facility] Method Time Signature Tacrolimus Last 12/24/14 [facility] Dose 2130 [facility] Tacrolimus 9.5 5.0 - [facility] 15.0 ug/L [facility] Comment: Tacrolimus Reference Range [...] its perform ance characteristics determined by the [facility], ??Special Chemistry Laboratory. It has not [...] Phon e Number [facility] [address] documented in this encounter Visit Diagnoses Not on filedocumented in this encounter Care Teams District Manager Primary Care Sales Relationship Specialty Start Date End Date Momo Forbes PCP - General Family Practice 01/02/14 [facility] [address] [place] [address] Ingrid Santana, RN Registered Nurse Transplant 02/10/12 documented as of this encounter
--- OUTSIDE RECORDS SUMMARY | 2022-05-21 13:21 | XMS_ITS | Encounter Summary ---
:1950 Author Organization [place] Address [address] [place] [address] Care Team Providers Name Role Phone Ingrid Santana RN Unavailable Unavailable Momo Forbes Primary Care Provider Reason for Visit Reason Onset Date Comments Medication Question 01/17/2015 Encounter Details Date Type Department Care Team Description 01/17/2015 Telephone PHARMACY Beny Staton RPH Medication Question 500 [facility] [place] [address] PHARMACY [phone] [place] [address] Social History Tobacco Use Types [...] keep better tabs. His last to in [employer] were good but that was 8 months ago. Beny Staton [facility] Specialty Pharmacist [phone] documented in this encounter Plan of Treatment Not on filedocumented as of this encounter Visit Diagnoses Not on filedocumented in this encounter Care Teams Day Guard Relationship Specialty Start Date End Date Momo Forbes PCP - General Family Practice 01/02/14 [facility] [address] [place] [address] Ingrid Santana, RN Registered Nurse Transplant 02/10/12 documented as of this encounter
--- OUTSIDE RECORDS SUMMARY | 2022-05-21 13:21 | XMS_ITS | Encounter Summary ---
:1950 Author Organization [place] Address [facility] [place] [address] Care Team Providers Name Role Phone Momo Forbes Primary Care Provider Joseph Quintana MD Unavailable Encounter Details Date Type Department Care Team Description 05/03/2016 External Order Results [facility] Nurse, [facility] 9 [place] [address] Social History Tobacco Use Types [...] on filedocumented in this encounter Care Teams Small Animal Caretaker Relationship Specialty Start Date End Date Momo Forbes PCP - General Family Practice 01/02/14 [facility] [address] [place] [address] Joseph Quintana, Assigned Nephrology 03/29/21 MD Provider [address] [place], [place] [address] documented as of this encounter
--- OUTSIDE RECORDS SUMMARY | 2022-05-21 13:21 | XMS_ITS | Encounter Summary ---
:1950 Author Organization [place] Address [address] [place] [address]. [place] [address] Care Team Providers Name Role Phone Momo Forbes Primary Care Provider Reason for Visit Reason Onset Date Comments Transplant 04/20/2016 refill Encounter Details Date Type Department Care Team Description 04/20/2016 Refill [facility] Joseph Quintana, Transplant (refill) Transplant Clinic [address] [place] [phone] [place] [address] (Wo rk) Social History Tobacco [...] transplant documented in this encounter Care Teams Entertainment Musician Relationship Specialty Start Date End Date Momo Forbes PCP - General Family Practice 01/02/14 [facility] [address] [place] [address] documented as of this encounter
--- OUTSIDE RECORDS SUMMARY | 2022-05-21 13:22 | XMS_ITS | Encounter Summary ---
:1950 Author Organization [place] Address [address] [place] [address] Care Team Providers Name Role Phone Ingrid Santana RN Unavailable Unavailable Momo Forbes Primary Care Provider Reason for Visit Reason Onset Date Comments Medication Question 09/12/2014 Encounter Details Date Type Department Care Team Description 09/12/2014 Telephone PHARMACY Beny Staton RPH Medication Question 500 [facility] [place] [address] PHARMACY [phone] [place] [address] Social History Tobacco Use Types [...] 141/65 05/13/14 139/73 04/09/14 163/78 Patient is 7 months post-transplant. Medication [...] his dr told himhis bp was good. STANT PRODUCE MANAGER documented in this encounter Plan of Treatment Not on filedocumented as of this encounter Visit Diagnoses Not on filedocumented in this encounter Care Teams Car Lubricator Relationship Specialty Start Date End Date Momo Forbes PCP - General Family Practice 01/02/14 [facility] [address] [place] [address] Ingrid Santana, RN Registered Nurse Transplant 02/10/12 documented as of this encounter
--- OUTSIDE RECORDS SUMMARY | 2022-05-21 13:22 | XMS_ITS | Encounter Summary ---
:1950 Author Organization [place] Address [facility] [place] [address] Care Team Providers Name Role Phone Ingrid Santana RN Unavailable Unavailable Momo Forbes Primary Care Provider Reason for Visit Reason Onset Date Comments Transplant 08/08/2014 immunosuppression ma neil Encounter Details Date Type Department Care Team Description 08/08/2014 Refill Nephrology Shiva Kahn surveyor oil well directional 2nd Floor, Clinic 2A [facility] (immunosuppression Sanders Wangensteen [address] [facility] management) Building [address] [place] [phone] Social History Tobacco Use Types Packs/Day Years [...] to lower Prograf dose to 1.5mg BID. T MANAGER Telephone Encounter - Shiva Kahn RN - 08/08/2014 5:33 PM CST ISSUE: Tacrolimus level 9.0. New target tacrolimus levels 6-8 since patient is now 6 months post kidney transplant. PLAN: Decrease Prograf dose from 2 mg twice daily to 1.5 mg twice daily. TASK: Please call patient with instructions for dose change. T MANAGER documented in this encounter Plan of Treatment Not on filedocumented as of this encounter Visit Diagnoses Diagnosis -donor kidney transplant recipie nt - Primary Kidney replaced by transplant documented in this encounter Care Teams Clay Modeler Relationship Specialty Start Date End Date Momo Forbes PCP - General Family Practice 01/02/[address] [address] Ingrid Santana, RN Registered Nurse Transplant 02/10/12 documented as of this encounter
--- OUTSIDE RECORDS SUMMARY | 2022-05-21 13:22 | XMS_ITS | Encounter Summary ---
:1950 Author Organization [place] Address [facility] [place] [address] Care Team Providers Name Role Phone Ingrid Santana RN Unavailable Unavailable Momo Forbes Primary Care Provider Joseph Quintana MD Unavailable Encounter Details Date Type Department Care Team Description 08/06/2014 External Order Results The Transplant Ce nter Nurse, [facility] 2nd Floor, Clinic [address]A [address] [phone] Social History Tobacco Use Types Packs/Day Years [...] 8:39 AM Results f or this RESULTS ASPHALT PAVING MACHINE OPERATOR procedure are i n the results section. documented in this encounter Results (ABNORMAL) TXP External Lab Result (08/05/2014 8:39 AM ASPHALT PAVING MACHINE OPERATOR) Analysis Performed At Patho logist Time [...] 55 (L) >60 LABDE SCAN (if ml/min/1.7 Northern Irish) 3m2 (External) GFR Estimated 45 (L) >60 [...] / / Volume Laterality 08/05/2014 8:39 AM ASPHALT PAVING MACHINE OPERATOR Narrative JESSICA PFT - 08/06/2014 7:40 AM ASPHALT PAVING MACHINE OPERATOR Verified by Mary Whitehead on 08/06/2014. Patient Reported LABORATORY Performing Organization Address City/State/ZIP Code Phon e Number BREEZE PFT LABDE SCAN documented in this encounter Visit Diagnoses Not on filedocumented in this encounter Care Teams Esol Teacher Relationship Specialty Start Date End Date Momo Forbes PCP - General Family Practice 01/02/14 [facility] [address] [place] [address] Ingrid Santana, RN Registered Nurse Transplant 02/10/12 Joseph Quintana, Assigned Nephrology 03/29/21 MD Provider [address] [place] [address] [address] [place] [address] documented as of this encounter
--- OUTSIDE RECORDS SUMMARY | 2022-05-21 13:22 | XMS_ITS | Encounter Summary ---
:1950 Author Organization [place] Address [facility] [place] [address] Care Team Providers Name Role Phone Ingrid Santana RN Unavailable Unavailable Momo Forbes Primary Care Provider Joseph Quintana MD Unavailable Encounter Details Date Type Department Care Team Description 08/28/2014 External Order Results The Transplant Ce nter Nurse, [facility] 2nd Floor, Clinic [address]A [address] [phone] Social History Tobacco Use Types Packs/Day Years [...] 08/26/2014 10:25 AM Results for this RESULTS WEB OPERATIONS SPECIALIST procedure are i n the results section. documented in this encounter Results (ABNORMAL) TXP External Lab Result (08/26/2014 10:25 AM WEB OPERATIONS SPECIALIST) Analysis Performed At Patho logist Time [...] 58 (L) >60 LABDE SCAN (if ml/min/1.7 New Zealander) 3m2 (External) GFR Estimated 48 (L) >60 [...] / / Volume Laterality 08/26/2014 10:25 AM WEB OPERATIONS SPECIALIST Narrative JESSICA PFT - 08/28/2014 4:34 PM WEB OPERATIONS SPECIALIST Verified by Freddy Mehta on 08/28. Patient Reported LABORATORY Performing Organization Address City/State/ZIP Code Phon e Number [facility] LABDE SCAN documented in this encounter Visit Diagnoses Not on filedocumented in this encounter Care Teams Lumber Marker Relationship Specialty Start Date End Date Momo Forbes PCP - General Family Practice 01/02/14 [facility] [address] [place] [address] Ingrid Santana, RN Registered Nurse Transplant 02/10/12 Joseph Quintana, Assigned Nephrology 8/8/21 MD Provider 7 [facility] 353 [facility] [address] [place], [place] [id number] documented as of this encounter
--- OUTSIDE RECORDS SUMMARY | 2022-05-21 13:22 | XMS_ITS | Encounter Summary ---
:1950 Author Organization [place] Address [facility] [place] [address] Care Team Providers Name Role Phone Ingrid Santana RN Unavailable Unavailable Momo Forbes Primary Care Provider Encounter Details Date Type Department Care Team Description 10/18/2014 External Order Results The Transplant Ce ntjakob Nurse, [facility] 2nd Floor, Clinic 2A [address] [place] [address] Social History Tobacco Use Types [...] 8:15 AM Results f or this RESULTS WORK OVER RIG OPERATOR procedure are i n the results section. documented in this encounter Results (ABNORMAL) TXP External Lab Result (10/17/2014 8:15 AM WORK OVER RIG OPERATOR) Analysis Performed At Patho logist Time [...] 56 (L) >60 LABDE SCAN (if ml/min/1.7 Slovak) 3m2 (External) GFR Estimated 46 (L) >60 [...] / / Volume Laterality 10/17/2014 8:15 AM WORK OVER RIG OPERATOR Narrative JESSICA PFT - 10/18/2014 8:50 AM WORK OVER RIG OPERATOR Verified by Maribel Plunkett on 10/18/19 15. Patient Reported LABORATORY Performing Organization Address City/State/ZIP Code Phon e Number BREEZE PFT LABDE SCAN documented in this encounter Visit Diagnoses Not on filedocumented in this encounter Care Teams Rounder Hand Relationship Specialty Start Date End Date Forbes, Ton PCP - General Family Practice 01/02/14 [facility] [address] [place] [phone] Ingrid Santana, RN Registered Nurse Transplant 02/10/12 documented as of this encounter
--- OUTSIDE RECORDS SUMMARY | 2022-05-21 13:22 | XMS_ITS | Encounter Summary ---
:1950 Author Organization [place] Address [facility] [place] [address] Care Team Providers Name Role Phone Ingrid Santana RN Unavailable Unavailable Momo Forbes Primary Care Provider Joseph Quintana MD Unavailable Encounter Details Date Type Department Care Team Description 07/25/2014 External Order Results The Transplant Ce nter Nurse, [facility] 2nd Floor, Clinic 2A [address] [phone] Social History Tobacco Use Types Packs/Day Years [...] 8:22 AM Results f or this RESULTS RETAIL COSMETICS SALES COUNTER MANAGER procedure are i n the results section. documented in this encounter Results (ABNORMAL) TXP External Lab Result (07/22/2014 8:22 AM RETAIL COSMETICS SALES COUNTER MANAGER) Analysis Performed At Patho logist Time [...] 52 (L) >60 LABDE SCAN (if ml/min/1.7 Mozambican) 3m2 (External) GFR Estimated 43 (L) >60 [...] / / Volume Laterality 07/22/2014 8:22 AM RETAIL COSMETICS SALES COUNTER MANAGER Narrative MARLENEE PFT - 07/25/2014 6:19 AM RETAIL COSMETICS SALES COUNTER MANAGER Verified by Janee Alexis on 07/25/2014 . Patient Reported LABORATORY Performing Organization Address City/State/ZIP Code Phon e Number BREEZE PFT LABDE SCAN documented in this encounter Visit Diagnoses Not on filedocumented in this encounter Care Teams Criminology Professor Relationship Specialty Start Date End Date Momo Forbes PCP - General Family Practice 01/02/14 [facility] [address] [place] [address] Ingrid Santana, RN Registered Nurse Transplant 02/10/12 Joseph Quintana, Assigned Nephrology 03/29/21 MD Provider [address] [place] [address] 1932 [place] [address] documented as of this encounter
--- OUTSIDE RECORDS SUMMARY | 2022-05-21 13:22 | XMS_ITS | Encounter Summary ---
:1950 Author Organization [place] Address [facility] [place] [address] Care Team Providers Name Role Phone Ingrid Santana RN Unavailable Unavailable Momo Forbes Primary Care Provider Reason for Visit Reason Onset Date Comments Medication Question 07/26/2014 Encounter Details Date Type Department Care Team Description 07/26/2014 Telephone PHARMACY Duncan, Fina, H Medication Question 500 [facility] [phone] 711 [facility] [phone] [place] [address] Social History Tobacco Use Types [...] very well healthy and happy Beny Staton [facility] Specialty Pharmacist [phone] ESS CONTROL BOARD OPERATOR documented in this encounter Plan of Treatment Not on filedocumented as of this encounter Visit Diagnoses Not on filedocumented in this encounter Care Teams Toolmaker Helper Relationship Specialty Start Date End Date Momo Forbes PCP - General Family Practice 01/02/14 [facility] [address] [place] [address] Ingrid Santana, RN Registered Nurse Transplant 02/10/12 documented as of this encounter
--- OUTSIDE RECORDS SUMMARY | 2022-05-21 13:22 | XMS_ITS | Encounter Summary ---
:1950 Author Organization [place] Address [address] [place] [address]. [place] [address] Care Team Providers Name Role Phone Ingrid Santana RN Unavailable Unavailable Momo Forbes Primary Care Provider Encounter Details Date Type Department Care Team Description 08/03/2014 Abstract The Transplant [facility] r 2nd Floor, Clinic 2A [place] [phone] Social History Tobacco Use Types Packs/Day [...] on filedocumented in this encounter Care Teams Convertible Sofa Bedspring Tester Relationship Specialty Start Date End Date Momo Forbes PCP - General Family Practice 01/02/14 [facility] [address] [place] [address] Ingrid Santana RN Registered Nurse Transplant 02/10/12 documented as of this encounter
--- OUTSIDE RECORDS SUMMARY | 2022-05-21 13:22 | XMS_ITS | Encounter Summary ---
:1950 Author Organization [place] Address [address] [place] [address] Care Team Providers Name Role Phone Ingrid Santana RN Unavailable Unavailable Momo Forbes Primary Care Provider Encounter Details Date Type Department Care Team Description 08/22/2014 Orders Only [facility], Joseph Conor isael, [facility] 500 [facility] [address] [place] [address] [phone] [place] [address] 938 [place] [address] (Wo rk) Social [...] Res ults for this MASS SPECTROMETRY AM WHIZZER procedure are in the results section. documented in this encounter Results Tacrolimus level (08/26/2014 10:21 AM WHIZZER) [facility] Method Time Signature Tacrolimus Last 01/04/[address] Tacrolimus 6.6 5.0 - [facility] Level 15.0 ug/L [facility] Comment: Tacrolimus Reference Range Kidney [...] its perform ance characteristics determined by the [facility], ??Special Chemistry Laboratory. [...] / Volume Laterality 08/26/2014 10:21 08/28/2014 AM WHIZZER 11:34 AM WHIZZER Mingo Dangelo MD LAB - BLOOD ORDERABLES Performing Organization Address City/State/ZIP Code Phon e Number [facility] [address] documented in this encounter Visit Diagnoses Not on filedocumented in this encounter Care Teams Line Repairer Relationship Specialty Start Date End Date Momo Forbes PCP - General Family Practice 01/02/14 [facility] [address] [place] [address] Ingrid Santana, RN Registered Nurse Transplant 02/10/12 documented as of this encounter
--- OUTSIDE RECORDS SUMMARY | 2022-05-21 13:22 | XMS_ITS | Encounter Summary ---
:1950 Author Organization [place] Address [facility] [address] Care Team Providers Name Role Phone Ingrid Santana RN Unavailable Unavailable Momo Forbes Primary Care Provider Joseph Quintana MD Unavailable Encounter Details Date Type Department Care Team Description 07/31/2014 External Order Results The Transplant Ce nter Nurse, [facility] 2nd Floor, Clinic [address]A [address] [place] [phone] Social History Tobacco Use Types Packs/Day Years [...] 8:25 AM Results f or this RESULTS TRACTOR TRAILER MECHANIC procedure are i n the results section. documented in this encounter Results (ABNORMAL) TXP External Lab Result (07/29/2014 8:25 AM TRACTOR TRAILER MECHANIC) [facility] Method Time Signature Sodium (External) 138 135 [...] / / Volume Laterality 07/29/2014 8:25 AM TRACTOR TRAILER MECHANIC Narrative BREEZE PFT - 07/31/2014 2:47 PM TRACTOR TRAILER MECHANIC Verified by Nazia Duncan on 07/31/2014. Verified by Freddy Mehta on 07/31. Patient Reported LABORATORY Performing Organization Address City/State/ZIP Code Phon e Number BREEZE PFT LABDE SCAN documented in this encounter Visit Diagnoses Not on filedocumented in this encounter Care Teams Compliance Professional Relationship Specialty Start Date End Date Momo Forbes PCP - General Family Practice 01/02/14 [facility] [address] [place] [address] Ingrid Santana, RN Registered Nurse Transplant 02/10/12 Joseph Quintana, Assigned Nephrology 03/29/21 MD Provider [address] [place] [address] 1932 [place] [address] documented as of this encounter
--- OUTSIDE RECORDS SUMMARY | 2022-05-21 13:22 | XMS_ITS | Encounter Summary ---
:1950 Author Organization [place] Address [address] [place] [address] Care Team Providers Name Role Phone Ingrid Santana RN Unavailable Unavailable Momo Forbes Primary Care Provider Encounter Details Date Type Department Care Team Description 09/22/2014 Orders Only [facility] Spong, Joseph Conor isael, [facility] 500 [facility] [address] [place] [phone] [place] [address] 756 [place] [address] (Wo rk) Social History Tobacco [...] AM R esults for this MASS SPECTROMETRY WOOD SHINGLE ROOFER procedure are in the results section. TACROLIMUS BY TANDEM Routine 10/03/2014 8:30 AM R esults for this MASS SPECTROMETRY WOOD SHINGLE ROOFER procedure are in the results section. documented in this encounter Results Tacrolimus level (10/17/2014 8:15 AM WOOD SHINGLE ROOFER) [facility] gist Method Time Signature Tacrolimus Last 2029 [facility] Dose 10/16/14 [facility] Tacrolimus 9.2 5.0 - [facility] Level 15.0 ug/L [facility] Comment: Tacrolimus Reference Range Kidney Transplant Pediatric [...] perform ance characteristics determined by the [facility], ??Special Chemistry Laboratory. It has not been cleared or approved by the FDA . The laboratory is regulated under CLIA as qualified to perform high-complexity testing. This test is used for clinical purposes. It should not be regarded as investigational or for research. Specimen Anatomical Collection Method Collection Time Receive d Time (Source) Location / / Volume Laterality 10/17/2014 8:15 AM 5 WOOD SHINGLE ROOFER 11:17 AM WOOD SHINGLE ROOFER Mingo Dangelo MD LAB - BLOOD ORDERABLES Performing Organization Address City/State/ZIP Code Phon e Number [facility] 500 [place] [address] [facility] Tacrolimus level (10/03/2014 8:30 AM WOOD SHINGLE ROOFER) [facility] gist Method Time Signature Tacrolimus Last 10/02/14 [facility] Dose 2030 [facility] Tacrolimus 7.4 5.0 - [facility] Level 15.0 ug/L [facility] Comment: Tacrolimus Reference Range Kidney Transplant Pediatric [...] perform ance characteristics determined by the [facility], ??Special Chemistry Laboratory. It has not been cleared or approved by the FDA . The laboratory is regulated under CLIA as qualified to perform high-complexity testing. This test is used for clinical purposes. It should not be regarded as investigational or for research. Specimen Anatomical Collection Method Collection Time Receive d Time (Source) Location / / Volume Laterality 10/03/2014 8:30 AM 5 WOOD SHINGLE ROOFER 11:09 AM WOOD SHINGLE ROOFER Mingo Dangelo MD LAB - BLOOD ORDERABLES Performing Organization Address City/State/ZIP Code Phon e Number [facility] [address] documented in this encounter Visit Diagnoses Not on filedocumented in this encounter Care Teams Centerless Grinder Set Up Operator Relationship Specialty Start Date End Date Momo Forbes PCP - General Family Practice 01/02/14 [facility] [address] [place] [address] Ingrid Santana, RN Registered Nurse Transplant 02/10/12 documented as of this encounter
--- OUTSIDE RECORDS SUMMARY | 2022-05-21 13:22 | XMS_ITS | Encounter Summary ---
:1950 Author Organization [place] Address [facility] [place] [address] Care Team Providers Name Role Phone Ingrid Santana RN Unavailable Unavailable Momo Forbes Primary Care Provider Encounter Details Date Type Department Care Team Description 10/04/2014 External Order Results The Transplant Ce ntjakob Nurse, [facility] 2nd Floor, Clinic 2A [address] [place] [address] Social History Tobacco Use Types [...] 8:33 AM Results f or this RESULTS SENIOR WEB SERVICES DEVELOPER procedure are i n the results section. documented in this encounter Results (ABNORMAL) TXP External Lab Result (10/03/2014 8:33 AM SENIOR WEB SERVICES DEVELOPER) Analysis Performed At Patho logist Time [...] 57 (L) >60 LABDE SCAN (if ml/min/1.7 Papua [place]an) 3m2 (External) GFR Estimated 47 (L) >60 [...] / / Volume Laterality 10/03/2014 8:33 AM SENIOR WEB SERVICES DEVELOPER Narrative ZACHERYEZE PFT - 10/04/2014 8:51 AM SENIOR WEB SERVICES DEVELOPER Verified by Josseline Palma on 5. Patient Reported LABORATORY Performing Organization Address City/State/ZIP Code Phon e Number BREEZE PFT LABDE SCAN documented in this encounter Visit Diagnoses Not on filedocumented in this encounter Care Teams Ecology Professor Relationship Specialty Start Date End Date Momo Forbes PCP - General Family Practice 01/02/14 [facility] [address] [place] [address] Ingrid Santana, RN Registered Nurse Transplant 02/10/12 documented as of this encounter
--- OUTSIDE RECORDS SUMMARY | 2022-05-21 13:22 | XMS_ITS | Encounter Summary ---
:1950 Author Organization [place] Address [facility] [place] [address] Care Team Providers Name Role Phone Ingrid Santana RN Unavailable Unavailable Momo Forbes Primary Care Provider Reason for Visit Reason Onset Date Comments Refill Request 09/06/2014 [facility] Encounter Details Date Type Department Care Team Description 09/06/2014 Refill The Transplant Deysi Burns, Refill Request ([facility] 2nd Floor, Clinic 2A MD Plus) Tommy Wilburn [phone] [place] [address] [place] [address] Social History Tobacco Use Types [...] Notes Telephone Encounter - Aubrey [place] - 09/06/2014 10:48 AM CST Drug Name: Dok Plus Last Fill Date: 02/08/14 Quantity: 100 Michael [facility] [phone] OR DIRECTOR documented in this encounter Plan of Treatment Not on filedocumented as of this encounter Visit Diagnoses Diagnosis S/P kidney transplant - Primary Kidney replaced by transplant documented in this encounter Care Teams Vice President Payment Relationship Specialty Start Date End Date Momo Forbes PCP - General Family Practice 01/02/14 [place] [id number] Ingrid Santana, RN Registered Nurse Transplant 02/10/12 documented as of this encounter
--- OUTSIDE RECORDS SUMMARY | 2022-05-21 13:22 | XMS_ITS | Encounter Summary ---
:1950 Author Organization [place] Address [address] [place] [address] Care Team Providers Name Role Phone Ingrid Santana RN Unavailable Unavailable Momo Forbes Primary Care Provider Reason for Visit Reason Onset Date Comments Medication Question 10/11/2014 Encounter Details Date Type Department Care Team Description 10/11/2014 Telephone PHARMACY Beny Staton RPH Medication Question 500 [facility] [place] [address] PHARMACY [phone] [place] [address] Social History Tobacco Use Types [...] 141/65 05/13/14 139/73 04/09/14 163/78 Patient is 8 months post-transplant. Medication [...] activity before he checks it. Beny Staton [facility] Specialty Pharmacist [phone] T MACHINIST documented in this encounter Plan of Treatment Not on filedocumented as of this encounter Visit Diagnoses Not on filedocumented in this encounter Care Teams Sales Branch Manager Relationship Specialty Start Date End Date Momo Forbes PCP - General Family Practice 01/02/[address] [address] Ingrid Santana, RN Registered Nurse Transplant 02/10/12 documented as of this encounter
--- OUTSIDE RECORDS SUMMARY | 2022-05-21 13:22 | XMS_ITS | Encounter Summary ---
:1950 Author Organization [place] Address [address] [place] [address] Care Team Providers Name Role Phone Ingrid Santana RN Unavailable Unavailable Momo Forbes Primary Care Provider Encounter Details Date Type Department Care Team Description 10/20/2014 Orders Only [facility] Spong, Joseph Conor isael, [facility] 500 [facility] [address] [place] [phone] [place] [address] 480 [place] [address] (Wo rk) Social History Tobacco [...] Results Tacrolimus level (11/05/2014 8:29 AM CDT) [facility] Method Time Signature Tacrolimus Last 2029, [facility] Dose 11/04/14 [facility] Tacrolimus 7.7 5.0 - [facility] Level 15.0 ug/L [facility] Comment: Tacrolimus Reference Range Kidney Transplant [...] its perform ance characteristics determined by the [facility], ??Special Chemistry Laboratory. It has not [...] Phon e Number [facility] [address] documented in this encounter Visit Diagnoses Not on filedocumented in this encounter Care Teams Material Handler Floorperson Relationship Specialty Start Date End Date Momo Forbes PCP - General Family Practice 01/02/14 [facility] [address] [place] [address] Ingrid Santana, RN Registered Nurse Transplant 02/10/12 documented as of this encounter
--- OUTSIDE RECORDS SUMMARY | 2022-05-21 13:23 | XMS_ITS | Encounter Summary ---
:1950 Author Organization [place] Address [address] [place] [address]. [place] [address] Care Team Providers Name Role Phone Ingrid Santana RN Unavailable Unavailable Momo Forbes Primary Care Provider Encounter Details Date Type Department Care Team Description 05/27/2014 Orders Only Nephrology Shiva Kahn RN -donor kidney 2nd Floor, Clinic 2A [facility] transplant recipient Tommy Ruizteen [address] [place] [address] [place] [phone] Social History Tobacco Use Types Packs/Day Years [...] transplant documented in this encounter Care Teams Contact Center Engineer Relationship Specialty Start Date End Date Momo Forbes PCP - General Family Practice 01/02/14 [facility] [address] [place] [address] Ingrid Santana, RN Registered Nurse Transplant 02/10/12 documented as of this encounter
--- OUTSIDE RECORDS SUMMARY | 2022-05-21 13:23 | XMS_ITS | Encounter Summary ---
:1950 Author Organization [place] Address [facility] [place] [address] Care Team Providers Name Role Phone Ingrid Santana RN Unavailable Unavailable Momo Forbes Primary Care Provider Joseph Quintana MD Unavailable Encounter Details Date Type Department Care Team Description 05/16/2014 External Order Results The Transplant Ce nter Nurse, [facility] 2nd Floor, Clinic [address] [phone] Social History Tobacco Use Types Packs/Day Years [...] (05/15/2014 8:16 AM CDT) Analysis Performed At Patho logist [...] Estimated >60 >60 LABDE SCAN (if ml/min/1.7 Bolivian) 3m2 (External) GFR Estimated 52 (L) >60 [...] Volume Laterality 05/15/2014 8:16 AM CDT Narrative ZACHERYTYLER PFT - 05/16/2014 10:38 AM CDT Verified by Mary Whitehead on 05/16/2014. Patient Reported LABORATORY Performing Organization Address City/State/ZIP Code Phon e Number BREEZE PFT LABDE SCAN documented in this encounter Visit Diagnoses Not on filedocumented in this encounter Care Teams Tape Control Skin Or Spar Mill Operator Relationship Specialty Start Date End Date Momo Forbes PCP - General Family Practice 01/02/14 [facility] [address] [place] [address] Ingrid Santana, RN Registered Nurse Transplant 02/10/12 Joseph Quintana, Assigned Nephrology 03/29/21 MD Provider [address] [place] [address] [address] [place] [address] documented as of this encounter
--- OUTSIDE RECORDS SUMMARY | 2022-05-21 13:23 | XMS_ITS | Encounter Summary ---
:1950 Author Organization [place] Address [facility] [place] [address] Care Team Providers Name Role Phone Ingrid Santana RN Unavailable Unavailable Momo Forbes Primary Care Provider Joseph Quintana MD Unavailable Encounter Details Date Type Department Care Team Description 07/17/2014 External Order Results The Transplant Ce nter Nurse, [facility] 2nd Floor, Clinic [address]A [address] [phone] Social History Tobacco Use Types Packs/Day Years [...] 8:28 AM Results f or this RESULTS WATERPROOFER HELPER procedure are i n the results section. documented in this encounter Results (ABNORMAL) TXP External Lab Result (07/15/2014 8:28 AM WATERPROOFER HELPER) Analysis Performed At Patho logist Time Signature [...] 60 (L) >60 LABDE SCAN (if ml/min/1.7 Citizen Of The Dominican [place]) 3m2 (External) GFR Estimated 49 (L) >60 [...] / / Volume Laterality 07/15/2014 8:28 AM WATERPROOFER HELPER Narrative ZACHERYEZE PFT - 07/17/2014 8:35 AM WATERPROOFER HELPER Verified by Maribel Plunkett on 07/17/20 14. Patient Reported LABORATORY Performing Organization Address City/State/ZIP Code Phon e Number BREEZE PFT LABDE SCAN documented in this encounter Visit Diagnoses Not on filedocumented in this encounter Care Teams Technical Illustrator Relationship Specialty Start Date End Date Momo Forbes PCP - General Family Practice 01/02/14 [facility] [address] [place] [address] Ingrid Santana, RN Registered Nurse Transplant 02/10/12 Joseph Quintana, Assigned Nephrology 03/29/21 MD Provider [address] [place] [address] [address] [place] [address] documented as of this encounter
--- OUTSIDE RECORDS SUMMARY | 2022-05-21 13:23 | XMS_ITS | Encounter Summary ---
:1950 Author Organization [place] Address [facility]0 [facility] [address] Care Team Providers Name Role Phone Ingrid Santana RN Unavailable Unavailable Momo Forbes Primary Care Provider Reason for Visit Reason Onset Date Comments Pre Visit Planning - Done 05/13/2014 6 week f/u pos t op afib. medication changes last visit. Encounter Details Date Type Department Care Team Description 05/13/2014 PRE VISIT [facility] [address] Pre Visit Planning - Physicians Orestes Hernandez MD Done (6 week f/u post [facility] op afib. medication Building [place] changes last visit. ) 4th Floor, Clinic 4B [id number] [place] [address] (Wo rk) [phone] Social History Tobacco Use Types Packs/Day Years [...] filedocumented in this encounter Care Teams Gas Engine Operator Relationship Specialty Start Date End Date Momo Forbes PCP - General Family Practice 01/02/14 [facility] [address] [place] [phone] Ingrid Santana, RN Registered Nurse Transplant 02/10/12 documented as of this encounter
--- OUTSIDE RECORDS SUMMARY | 2022-05-21 13:23 | XMS_ITS | Encounter Summary ---
:1950 Author Organization [place] Address [facility]0 [facility] [place] [address] Care Team Providers Name Role Phone Ingrdi Santana RN Unavailable Unavailable Momo Forbes Primary Care Provider Joseph Quintana MD Unavailable Encounter Details Date Type Department Care Team Description 07/03/2014 External Order Results The Transplant Ce nter Nurse, [facility] 2nd Floor, Clinic [address]A [address] [phone] Social History Tobacco Use Types Packs/Day Years [...] 8:27 AM Results f or this RESULTS DISH WASHER procedure are i n the results section. documented in this encounter Results (ABNORMAL) TXP External Lab Result (07/01/2014 8:27 AM DISH WASHER) Analysis Performed At Patho logist Time Signature [...] 57 (L) >60 LABDE SCAN (if ml/min/1.7 British) 3m2 (External) GFR Estimated 47 (L) >60 [...] / / Volume Laterality 07/01/2014 8:27 AM DISH WASHER Narrative JESSICA PFT - 07/03/2014 2:18 PM DISH WASHER Verified by Xiomara Bello on 07/03/20 14. Patient Reported LABORATORY Performing Organization Address City/State/ZIP Code Phon e Number BREEZE PFT LABDE SCAN documented in this encounter Visit Diagnoses Not on filedocumented in this encounter Care Teams Heat Sealing Machine Operator Relationship Specialty Start Date End Date Momo Forbes PCP - General Family Practice 01/02/14 [facility] [address] [place] [address] Ingrid Santana, RN Registered Nurse Transplant 02/10/12 Joseph Quintana, Assigned Nephrology 03/29/21 MD Provider [address] [place] [address] [address] [place] [address] documented as of this encounter
--- OUTSIDE RECORDS SUMMARY | 2022-05-21 13:23 | XMS_ITS | Encounter Summary ---
:1950 Author Organization [place] Address [facility] [place] [address] Care Team Providers Name Role Phone Ingrid Santana RN Unavailable Unavailable Momo Forbes Primary Care Provider Reason for Visit Reason Onset Date Comments Transplant 06/20/2014 FK 6.6 Encounter Details Date Type Department Care Team Description 06/20/2014 Telephone Nephrology Carmelita Rosario, Transplant (FK 6.6) 2nd Floor, Clinic 2A [place] [phone] Social History Tobacco Use Types Packs/Day [...] weekly lab stage. Telephone Encounter - Carmelita Rosario RN - 06/20/2014 7:36 AM CDT FK 6.6 [...] transplant documented in this encounter Care Teams Wild Oyster Harvester Relationship Specialty Start Date End Date Momo Forbes PCP - General Family Practice 01/02/[address] [address] Ingrid Santana RN Registered Nurse Transplant 02/10/12 documented as of this encounter
--- OUTSIDE RECORDS SUMMARY | 2022-05-21 13:23 | XMS_ITS | Encounter Summary ---
:1950 Author Organization [place] Address [facility]0 [facility] [place] [address] Care Team Providers Name Role Phone Ingrid Santana RN Unavailable Unavailable Momo Forbes Primary Care Provider Encounter Details Date Type Department Care Team Description 06/10/2014 External Order Results The Transplant Ce ntjakob Nurse, [facility] 2nd Floor, Clinic [address]A [address] [place] [address] Social History Tobacco Use Types [...] 60 (L) >60 LABDE SCAN (if ml/min/1.7 Botswanan) 3m2 (External) GFR Estimated 49 (L) >60 [...] filedocumented in this encounter Care Teams Supervisor Newspaper Deliveries Relationship Specialty Start Date End Date Momo Forbes PCP - General Family Practice 01/02/14 [facility] [address] [place] [address] Ingrid Santana, RN Registered Nurse Transplant 02/10/12 documented as of this encounter
--- OUTSIDE RECORDS SUMMARY | 2022-05-21 13:23 | XMS_ITS | Encounter Summary ---
:1950 Author Organization [place] Address [address] [place] [address]. [place] [address] Care Team Providers Name Role Phone Ingrid Santana RN Unavailable Unavailable Momo Forbes Primary Care Provider Encounter Details Date Type Department Care Team Description 06/07/2014 External Order Results The Transplant Ce ntjakob Nurse, [facility] 2nd Floor, Clinic [address]A [address] [place] [address] Social History Tobacco Use Types [...] External Lab Result (06/05/2014 8:30 AM CDT) [facility] Method Time Signature Sodium (External) 138 [...] on filedocumented in this encounter Care Teams Student Services Rep Relationship Specialty Start Date End Date Momo Forbes PCP - General Family Practice 01/02/14 [facility] [address] [place] [address] Ingrid Santana, RN Registered Nurse Transplant 02/10/12 documented as of this encounter
--- OUTSIDE RECORDS SUMMARY | 2022-05-21 13:23 | XMS_ITS | Encounter Summary ---
:1950 Author Organization [place] Address [facility]0 [facility] [place] [address] Care Team Providers Name Role Phone Ingrid Santana RN Unavailable Unavailable Momo Forbes Primary Care Provider Joseph Quintana MD Unavailable Encounter Details Date Type Department Care Team Description 06/24/2014 External Order Results The Transplant Ce nter Nurse, [facility] 2nd Floor, Clinic [address]A [address] [phone] Social History Tobacco Use Types Packs/Day Years [...] 8:37 AM Results f or this RESULTS MACHINE TACK PULLER procedure are i n the results section. documented in this encounter Results (ABNORMAL) TXP External Lab Result (06/24/2014 8:37 AM MACHINE TACK PULLER) Analysis Performed At Patho logist Time Signature [...] 54 (L) >60 LABDE SCAN (if ml/min/1.7 Central African) 3m2 (External) GFR Estimated 44 (L) >60 [...] / / Volume Laterality 06/24/2014 8:37 AM MACHINE TACK PULLER Narrative JESSICA PFT - 06/24/2014 2:52 PM MACHINE TACK PULLER Verified by Soife Verdin on 4. Patient Reported LABORATORY Performing Organization Address City/State/ZIP Code Phon e Number BREEZE PFT LABDE SCAN documented in this encounter Visit Diagnoses Not on filedocumented in this encounter Care Teams Water Pollution Specialist Relationship Specialty Start Date End Date Momo Forbes PCP - General Family Practice 01/02/14 [facility] [address] [place] [address] Ingrid Santana, RN Registered Nurse Transplant 02/10/12 Joseph Quintana, Assigned Nephrology 03/29/21 MD Provider [address] [place] [address] [address] [place] [address] documented as of this encounter
--- OUTSIDE RECORDS SUMMARY | 2022-05-21 13:23 | XMS_ITS | Encounter Summary ---
:1950 Author Organization [place] Address [facility] [address] Care Team Providers Name Role Phone Ingrid Santana RN Unavailable Unavailable Momo Forbes Primary Care Provider Joseph Quintana MD Unavailable Encounter Details Date Type Department Care Team Description 05/27/2014 External Order Results The Transplant Ce nter Nurse, [facility] 2nd Floor, Clinic [address]A [address] [phone] Social History Tobacco Use Types Packs/Day Years [...] (05/24/2014 8:11 AM CDT) Analysis Performed At Patho logist Time Signature Sodium 142 135 - 145 [...] Estimated >60 >60 LABDE SCAN (if ml/min/1.7 Ivorian) 3m2 (External) GFR Estimated 52 (L) >60 [...] / Volume Laterality 05/24/2014 8:11 AM CDT Narrative ZACEHRYTYLER PFT - 05/27/2014 2:16 PM CDT Verified by Jessica Major on 014. Patient Reported LABORATORY Performing Organization Address City/State/ZIP Code Phon e Number BREEZE PFT LABDE SCAN documented in this encounter Visit Diagnoses Not on filedocumented in this encounter Care Teams Lens Coater Relationship Specialty Start Date End Date Momo Forbes PCP - General Family Practice 01/02/14 [facility] [address] [place] [address] Ingrid Santana, RN Registered Nurse Transplant 02/10/12 Joseph Quintana, Assigned Nephrology 03/29/21 MD Provider [address] [place] [address] 1932 [place] [address] documented as of this encounter
--- OUTSIDE RECORDS SUMMARY | 2022-05-21 13:23 | XMS_ITS | Encounter Summary ---
:1950 Author Organization [place] Address [address] [place] [address] Care Team Providers Name Role Phone Ingrid Santana RN Unavailable Unavailable Momo Forbes Primary Care Provider Encounter Details Date Type Department Care Team Description 05/22/2014 Orders Only [facility] Spong, Joseph Conor isael, [facility] 500 [facility] [address] [place] [phone] [place] [address] [place] [address] (Wo rk) Social History [...] Results Tacrolimus level (06/17/2014 8:05 AM CDT) [facility] gist Method Time Signature Tacrolimus Last 06/16/14 [facility] Dose 2000 [facility] Tacrolimus 6.5 5.0 - [facility] Level 15.0 ug/L [facility] Comment: Tacrolimus Reference Range Kidney [...] Phon e Number [facility] 500 [place], [place] [phone] [place] [address] [facility] Tacrolimus level (06/10/2014 7:52 AM CDT) [facility] gist Method Time Signature Tacrolimus Last 1999 [facility] Dose 06/09/14 [facility] Tacrolimus 7.9 5.0 - [facility] Level 15.0 ug/L [facility] [...] Phon e Number [facility] 500 [place], [place] [phone] [place] [address] [facility] Tacrolimus level (06/05/2014 8:28 AM CDT) [facility] gist Method Time Signature Tacrolimus Last 1999 [facility] Dose 06/04/14 [facility] Tacrolimus 7.9 5.0 - [facility] Level 15.0 ug/L [facility] [...] BLOOD ORDERABLES Performing Organization Address City/[facility]/ZIP Code Phon e Number [facility] [address] LABS Tacrolimus level (05/24/2014 8:05 AM CDT) [facility] gist Method Time Signature Tacrolimus 05/23/14 [facility] Last Dose 20:00 [facility] Tacrolimus Test 5.0 - [facility] Level canceled - 15.0 ug/L [facility] entry error Specimen Anatomical Collection Method Collection Time Receive d Time (Source) Location / / Volume Laterality 05/24/2014 8:05 AM 4 2:49 CDT PM CDT Deysi Alicea MD LAB - BLOOD ORDERABLES Performing Organization Address City/State/ZIP Code Phon e Number [facility] 500 [place], [place] [phone] [place] [address] [facility] Tacrolimus level (05/24/2014 8:05 AM CDT) Patholo gist Method Time Signature Tacrolimus Last 05/23/14 [facility] Dose 20:00 [facility] Tacrolimus 5.8 5.0 - [facility] Level 15.0 ug/L [facility] [place] [facility] Comment: Tacrolimus Reference Range Kidney Transplant [...] Phon e Number [facility] [address] LABS documented in this encounter Visit Diagnoses Not on filedocumented in this encounter Care Teams Top Icer Relationship Specialty Start Date End Date Momo Forbes PCP - General Family Practice 01/02/14 [facility] [address] [place] [address] Ingrid Santana, RN Registered Nurse Transplant 02/10/12 documented as of this encounter
--- OUTSIDE RECORDS SUMMARY | 2022-05-21 13:23 | XMS_ITS | Encounter Summary ---
:1950 Author Organization [place] Address [facility] [place] [address] Care Team Providers Name Role Phone Ingrid Santana RN Unavailable Unavailable Momo Forbes Primary Care Provider Reason for Visit Reason Comments Heart Problem 6 week F/U Encounter Details Date Type Department Care Team Description 05/14/2014 [facility] [place] [facility] Joseph Hernandez, shanon carey (Primary Heart MD Dx) [facility] Building [place] 4th Floor, Clinic 4B [address] [phone] [place], [place] (Work) [phone] [phone] Social History Tobacco Use Types Packs/Day Years [...] documented in this encounter Patient Instructions Patient InstructionsPaRubi go RN - 05/14/2014 9:31 AM CDT Please contact me if you have any questions or concerns. 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 documented in this encounter Plan of Treatment Not on filedocumented as of this encounter Visit Diagnoses Diagnosis Unspecified essential hypertension - Ana ramirez documented in this encounter Care Teams Clinical Writer Relationship Specialty Start Date End Date Momo Forbes PCP - General Family Practice 01/02/[address] [address] Ingrid Santana, RN Registered Nurse Transplant 02/10/12 documented as of this encounter
--- OUTSIDE RECORDS SUMMARY | 2022-05-21 13:23 | XMS_ITS | Encounter Summary ---
:1950 Author Organization [place] Address [address] [place] [address] Care Team Providers Name Role Phone Ingrid Santana RN Unavailable Unavailable Momo Forbes Primary Care Provider Encounter Details Date Type Department Care Team Description 07/22/2014 Orders Only [facility] Spong, Joseph Conor isael, [facility] 500 [facility] [address] [place] [phone] [place] [address] 026 [place] [address] (Wo rk) Social History Tobacco [...] AM Resul ts for this SINGLE ANTIGEN ALLEY WORKER procedure are in the results section. HLA LUKASZ CLASS I Routine 07/29/2014 8:20 AM Result s for this SINGLE ANTIGEN ALLEY WORKER procedure are in the results section. TACROLIMUS BY TANDEM Routine 07/29/2014 8:20 AM R esults for this MASS SPECTROMETRY ALLEY WORKER procedure are in the results section. TACROLIMUS BY TANDEM Routine 07/22/2014 8:20 AM R esults for this MASS SPECTROMETRY ALLEY WORKER procedure are in the results section. documented in this encounter Results HLA Lukasz Class II Single Antigen (07/29/2014 8:20 AM ALLEY WORKER) [facility] Method Time Signature SA2 Test [...] Volume Laterality 07/29/2014 8:20 AM 4 3:26 ALLEY WORKER PM ALLEY WORKER Deysi Alicea MD LAB - IMMUNOLOGY ORDERABLES Performing Organization Address City/State/ZIP Code Phon e Number [facility] Immunology/Histocompatabil [place], [place] [address] [facility] [address] Building, Room 3-580 HISTOTRAC HLA Lukasz Class I Single Antigen (07/29/2014 8:20 AM ALLEY WORKER) [facility] Method Time Signature SA1 Test SA [...] Volume Laterality 07/29/2014 8:20 AM 4 3:26 ALLEY WORKER PM ALLEY WORKER Deysi Alicea MD LAB - IMMUNOLOGY ORDERABLES Performing Organization Address City/State/ZIP Code Phon e Number [facility] Immunology/Histocompatabil [place], [place] [address] [facility] [address] Building, Room 3-580 HISTOTRAC Tacrolimus level (07/29/2014 8:20 AM ALLEY WORKER) [facility] gist Method Time Signature Tacrolimus Last 1999 [facility] Dose 07/28/14 [facility] Tacrolimus 10.5 5.0 - [facility] Level [...] / Volume Laterality 07/29/2014 8:20 AM 4 ALLEY WORKER 11:17 AM ALLEY WORKER Deysi Alicea MD LAB - BLOOD ORDERABLES Performing Organization Address City/State/ZIP Code Phon e Number [facility] 500 [place] [address] [facility] Tacrolimus level (07/22/2014 8:20 AM ALLEY WORKER) [facility] Method Time Signature Tacrolimus Last 1929 [facility] Dose 07/21/14 [facility] Tacrolimus 10.8 5.0 - [facility] Level [...] / Volume Laterality 07/22/2014 8:20 AM 4 ALLEY WORKER 11:45 AM ALLEY WORKER Deysi Alicea MD LAB - BLOOD ORDERABLES Performing Organization Address City/State/ZIP Code Phon e Number [facility] 500 [place], [place] [phone] [place] [address] LABS documented in this encounter Visit Diagnoses Not on filedocumented in this encounter Care Teams Engineering Technician Relationship Specialty Start Date End Date Momo Forbes PCP - General Family Practice 01/02/14 [facility] [address] [place] [address] Ingrid Santana, RN Registered Nurse Transplant 02/10/12 documented as of this encounter
--- OUTSIDE RECORDS SUMMARY | 2022-05-21 13:23 | XMS_ITS | Encounter Summary ---
:1950 Author Organization [place] Address [address] [place] [address]. [place] [address] Care Team Providers Name Role Phone Ingrid Santana RN Unavailable Unavailable Momo Forbes Primary Care Provider Encounter Details Date Type Department Care Team Description 05/20/2014 External Order Results The Transplant Ce ntjakob Nurse, [facility] 2nd Floor, Clinic [address]A [address] [place] [phone] Social History Tobacco Use Types [...] 55 (L) >60 LABDE SCAN (if ml/min/1.7 Haitian) 3m2 (External) GFR Estimated 46 (L) >60 [...] on filedocumented in this encounter Care Teams Cook'S Assistant Relationship Specialty Start Date End Date Momo Forbes PCP - General Family Practice 01/02/14 [place] [id number] Ingrid Santana, RN Registered Nurse Transplant 02/10/12 documented as of this encounter
--- OUTSIDE RECORDS SUMMARY | 2022-05-21 13:23 | XMS_ITS | Encounter Summary ---
:1950 Author Organization [place] Address [facility]0 [facility] [place] [address] Care Team Providers Name Role Phone Ingrid Santana RN Unavailable Unavailable Momo Forbes Primary Care Provider Joseph Quintana MD Unavailable Encounter Details Date Type Department Care Team Description 07/10/2014 External Order Results The Transplant Ce nter Nurse, [facility] 2nd Floor, Clinic [address]A [address] [phone] Social History Tobacco Use Types Packs/Day Years [...] 8:17 AM Results f or this RESULTS LOCKSTITCH SLEEVE SETTER procedure are i n the results section. documented in this encounter Results (ABNORMAL) TXP External Lab Result (07/08/2014 8:17 AM LOCKSTITCH SLEEVE SETTER) Analysis Performed At Patho logist Time Signature [...] Estimated >60 >60 LABDE SCAN (if ml/min/1.7 Bermudian) 3m2 (External) GFR Estimated 51 (L) >60 [...] / / Volume Laterality 07/08/2014 8:17 AM LOCKSTITCH SLEEVE SETTER Narrative ZACHERYEZE PFT - 07/10/2014 6:20 AM LOCKSTITCH SLEEVE SETTER Verified by Janee Alexis on 07/10/2014 . Patient Reported LABORATORY Performing Organization Address City/State/ZIP Code Phon e Number BREEZE PFT LABDE SCAN documented in this encounter Visit Diagnoses Not on filedocumented in this encounter Care Teams Check Inspector Relationship Specialty Start Date End Date Momo Forbes PCP - General Family Practice 01/02/14 [facility] [address] [place] [address] Ingrid Santana, RN Registered Nurse Transplant 02/10/12 Joseph Quintana, Assigned Nephrology 03/29/21 MD Provider [address] [place] [address] 1932 [place] [address] documented as of this encounter
--- OUTSIDE RECORDS SUMMARY | 2022-05-21 13:23 | XMS_ITS | Encounter Summary ---
:1950 Author Organization [place] Address On license of [facility] [place] [address] Care Team Providers Name Role Phone Ingrid Santana RN Unavailable Unavailable Momo Forbes Primary Care Provider Reason for Visit Reason Comments RECHECK 3 month Tx follow Up Encounter Details Date Type Department Care Team Description 05/13/2014 Office Visit Nephrology Deysi Alicea, DM (diabetes mellitus), type 2 (H) (Primary Dx); 2nd Floor, Clinic 2A MD S/P kidney transplant Tommy Wilburn [address] [phone] (Wo rk) [phone] [phone] Social History Tobacco Use Types Packs/Day Years [...] discharged on Cumadin; Cumadin was stopped by building analyst/supervisor during the follow up visit, as he [...] Years of Education: 14 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
--- OUTSIDE RECORDS SUMMARY | 2022-05-21 13:23 | XMS_ITS | Encounter Summary ---
:1950 Author Organization [place] Address [address] [place] [address]. [place] [address] Care Team Providers Name Role Phone Ingrid Santana RN Unavailable Unavailable Momo Forbes Primary Care Provider Encounter Details Date Type Department Care Team Description 05/10/2014 Orders Only Nephrology Shiva Kahn RN -donor kidney 2nd Floor, Clinic 2A [facility] transplant recipient Tommy Ruizfelisa [address] [place] [address] (Primary Dx) Building [address] [place] [phone] Social History Tobacco Use Types Packs/Day Years [...] transplant documented in this encounter Care Teams Motorcycle Maker Relationship Specialty Start Date End Date Momo Forbes PCP - General Family Practice 01/02/14 [facility] [address] [place] [address] Ingrid Santana, RN Registered Nurse Transplant 02/10/12 documented as of this encounter
--- OUTSIDE RECORDS SUMMARY | 2022-05-21 13:23 | XMS_ITS | Encounter Summary ---
:1950 Author Organization [place] Address [address] [place] [address] Care Team Providers Name Role Phone Ingrid Santana RN Unavailable Unavailable Momo Fobres Primary Care Provider Encounter Details Date Type Department Care Team Description 06/22/2014 Orders Only [facility] Spong, Joseph Conor isael, [facility] 500 [facility] [address] [place] [address] [phone] [place] [address] [address] [place] [address] (Wo rk) Social History [...] AM R esults for this MASS SPECTROMETRY SMALL PRODUCTS I ASSEMBLER procedure are in the results section. TACROLIMUS BY TANDEM Routine 07/08/2014 8:15 AM R esults for this MASS SPECTROMETRY SMALL PRODUCTS I ASSEMBLER procedure are in the results section. TACROLIMUS BY TANDEM Routine 07/01/2014 8:25 AM R esults for this MASS SPECTROMETRY SMALL PRODUCTS I ASSEMBLER procedure are in the results section. TACROLIMUS BY TANDEM Routine 06/24/2014 8:30 AM R esults for this MASS SPECTROMETRY SMALL PRODUCTS I ASSEMBLER procedure are in the results section. documented in this encounter Results Tacrolimus level (07/15/2014 8:25 AM SMALL PRODUCTS I ASSEMBLER) [facility] Method Time Signature Tacrolimus Last 07/14/14 [facility] Dose 2000 [facility] Tacrolimus 8.1 5.0 - [facility] Level 15.0 ug/L [place] [...] / Volume Laterality 07/15/2014 8:25 AM 4 SMALL PRODUCTS I ASSEMBLER 10:56 AM SMALL PRODUCTS I ASSEMBLER Deysi Alicea MD LAB - BLOOD ORDERABLES Performing Organization Address City/State/ZIP Code Phon e Number [facility] [address] [place], [place] [id number] [place] [address] [facility] Tacrolimus level (07/08/2014 8:15 AM SMALL PRODUCTS I ASSEMBLER) [facility] gist Method Time Signature Tacrolimus Last 1999 [facility] Dose 07/07/14 [facility] Tacrolimus 8.6 5.0 - [facility] Level 15.0 ug/L [place] [...] / Volume Laterality 07/08/2014 8:15 AM 4 SMALL PRODUCTS I ASSEMBLER 11:03 AM SMALL PRODUCTS I ASSEMBLER Deysi Alicea MD LAB - BLOOD ORDERABLES Performing Organization Address City/State/ZIP Code Phon e Number [facility] [address] [place], [place] [phone] [place] [address] [facility] Tacrolimus level (07/01/2014 8:25 AM SMALL PRODUCTS I ASSEMBLER) [facility] gist Method Time Signature Tacrolimus Last 1999, [facility] Dose 06/30/14 [facility] Tacrolimus 9.3 5.0 - [facility] Level 15.0 ug/L [place] [...] / Volume Laterality 07/01/2014 8:25 AM 4 SMALL PRODUCTS I ASSEMBLER 12:11 PM SMALL PRODUCTS I ASSEMBLER Mingo Dangelo MD LAB - BLOOD ORDERABLES Performing Organization Address City/State/ZIP Code Phon e Number [facility] [address] [place] [address] [facility] Tacrolimus level (06/24/2014 8:30 AM SMALL PRODUCTS I ASSEMBLER) [facility] gist Method Time Signature Tacrolimus Last 1999 [facility] Dose 06/23/14 [facility] Tacrolimus 10.5 5.0 - [facility] Level 15.0 ug/L [place] [...] / Volume Laterality 06/24/2014 8:30 AM 4 SMALL PRODUCTS I ASSEMBLER 11:18 AM SMALL PRODUCTS I ASSEMBLER Deysi Alicea MD LAB - BLOOD ORDERABLES Performing Organization Address City/State/ZIP Code Phon e Number [facility] [address] [place] [address] [facility] documented in this encounter Visit Diagnoses Not on filedocumented in this encounter Care Teams Keno Clerk Relationship Specialty Start Date End Date Momo Forbes PCP - General Family Practice 01/02/14 [facility] [address] [place] [address] Ingrid Santana, RN Registered Nurse Transplant 02/10/12 documented as of this encounter
--- OUTSIDE RECORDS SUMMARY | 2022-05-21 13:23 | XMS_ITS | Encounter Summary ---
:1950 Author Organization [place] Address [facility] [place] [address] Care Team Providers Name Role Phone Ingrid Santana RN Unavailable Unavailable Momo Forbes Primary Care Provider Joseph Quintana MD Unavailable Encounter Details Date Type Department Care Team Description 06/08/2014 External Order Results The Transplant Ce nter Nurse, [facility] 2nd Floor, Clinic [address]A [address] [phone] Social History Tobacco Use Types Packs/Day Years [...] External Lab Result (06/05/2014 8:30 AM CDT) [facility] Method Time Signature Sodium (External) 138 [...] Phon e Number [facility] PFT LABDE SCAN documented in this encounter Visit Diagnoses Not on filedocumented in this encounter Care Teams Vice Squad Police Officer Relationship Specialty Start Date End Date Momo Forbes PCP - General Family Practice 01/02/14 [facility] [address] [place] [address] Ingrid Santana, RN Registered Nurse Transplant 02/10/12 Joseph Quintana, Assigned Nephrology 03/29/21 MD Provider [address] [place] [address] [address] [place] [address] documented as of this encounter
--- OUTSIDE RECORDS SUMMARY | 2022-05-21 13:23 | XMS_ITS | Encounter Summary ---
:1950 Author Organization [place] Address [facility] [place] [address] Care Team Providers Name Role Phone Ingrid Santana RN Unavailable Unavailable Momo Forbes Primary Care Provider Encounter Details Date Type Department Care Team Description 06/17/2014 External Order Results The Transplant Ce ntjakob Nurse, [facility] 2nd Floor, Clinic 2A [address] [place] [address] Social History Tobacco Use Types [...] 57 (L) >60 LABDE SCAN (if ml/min/1.7 Naur[place]) 3m2 (External) GFR Estimated 47 (L) >60 [...] filedocumented in this encounter Care Teams Potato Peeler Relationship Specialty Start Date End Date Momo Forbes PCP - General Family Practice 01/02/14 [place] [phone] Ingrid Santana, RN Registered Nurse Transplant 02/10/12 documented as of this encounter
--- OUTSIDE RECORDS SUMMARY | 2022-05-21 13:23 | XMS_ITS | Encounter Summary ---
:1950 Author Organization [place] Address [address] [place] [address]. [place] [address] Care Team Providers Name Role Phone Ingrid Santana RN Unavailable Unavailable Momo Forbes Primary Care Provider Encounter Details Date Type Department Care Team Description 05/17/2014 Orders Only Nephrology Shiva Kahn RN -donor kidney 2nd Floor, Clinic 2A [facility] transplant recipient Tommy Ruizfelisa [address] [place] [address] (Primary Dx) Building [address] [place] [phone] Social History Tobacco Use Types Packs/Day Years [...] transplant documented in this encounter Care Teams Product Promoter Sales Person Relationship Specialty Start Date End Date Momo Forbes PCP - General Family Practice 01/02/14 [facility] [address] [place] [address] Ingrid Santana, RN Registered Nurse Transplant 02/10/12 documented as of this encounter
--- OUTSIDE RECORDS SUMMARY | 2022-05-21 13:24 | XMS_ITS | Encounter Summary ---
:1950 Author Organization [place] Address [address] [place] [address]. [place] [address] Care Team Providers Name Role Phone Ingrid Santana RN Unavailable Unavailable Momo Forbes Primary Care Provider Encounter Details Date Type Department Care Team Description 04/04/2014 Orders Only Nephrology Shiva Kahn RN S/P kidney transplant 2nd Floor, Clinic 2A [facility] [address] [place] [address] [place] [phone] Social History Tobacco Use Types Packs/Day Years [...] documented in this encounter Care Teams Machine Specialist Relationship Specialty Start Date End Date Momo Forbes PCP - General Family Practice 01/02/14 [facility] [address] [place] [address] Siers, Ingrid A, RN Registered Nurse Transplant 02/10/12 documented as of this encounter
--- OUTSIDE RECORDS SUMMARY | 2022-05-21 13:24 | XMS_ITS | Encounter Summary ---
:1950 Author Organization [place] Address [address] [place] [address]. [place] [address] Care Team Providers Name Role Phone Ingrid Santana RN Unavailable Unavailable Momo Forbes Primary Care Provider Encounter Details Date Type Department Care Team Description 03/14/2014 Orders Only Nephrology Shiva Kahn RN -donor kidney 2nd Floor, Clinic 2A [facility] transplant recipient Tommy Ruizteen [address] [place] [address] [place] [address] [phone] Social History Tobacco Use Types Packs/Day Years [...] transplant documented in this encounter Care Teams Territory Manager General Sales Relationship Specialty Start Date End Date Momo Forbes PCP - General Family Practice 01/02/14 [facility] [address] [place] [address] Ingrid Santana, RN Registered Nurse Transplant 02/10/12 documented as of this encounter
--- OUTSIDE RECORDS SUMMARY | 2022-05-21 13:24 | XMS_ITS | Encounter Summary ---
:1950 Author Organization [place] Address [facility]0 [facility] [place] [address] Care Team Providers Name Role Phone Ingrid Santnaa RN Unavailable Unavailable Momo Forbes Primary Care Provider Reason for Visit Reason Onset Date Comments Anticoagulation 04/01/2014 Encounter Details Date Type Department Care Team Description 04/01/2014 Telephone [facility] Joseph Levine , Anticoagulation Anticoagulation Clin ic [facility] [address] [place], [place] [phone] [facility] [phone] [place] [address] 812 [place], [place] [phone] (Wo rk) Social History Tobacco Use Types [...] Notes Telephone Encounter - Joseph Levine, [facility] - 04/01/2014 5:22 PM CDT [...] on filedocumented in this encounter Care Teams Nursing Service Administrator Relationship Specialty Start Date End Date Momo Forbes PCP - General Family Practice 01/02/[address] [address] Ingrid Santana, RN Registered Nurse Transplant 02/10/12 documented as of this encounter
--- OUTSIDE RECORDS SUMMARY | 2022-05-21 13:24 | XMS_ITS | Encounter Summary ---
:1950 Author Organization [place] Address [facility] [place] [address] Care Team Providers Name Role Phone Ingrid Santana RN Unavailable Unavailable Momo Forbes Primary Care Provider Reason for Visit Reason Onset Date Comments Patient Reminder 03/26/2014 Encounter Details Date Type Department Care Team Description 03/26/2014 Telephone Nephrology Yesenia Clements CMA Patient Reminder 2nd Floor, Clinic 2A [place] [phone] Social History Tobacco Use Types Packs/Day [...] filedocumented in this encounter Care Teams Counter Attendant Relationship Specialty Start Date End Date Momo Forbes PCP - General Family Practice 01/02/14 [facility] [address] [place] [phone] Ingrid Santana, RN Registered Nurse Transplant 02/10/12 documented as of this encounter
--- OUTSIDE RECORDS SUMMARY | 2022-05-21 13:24 | XMS_ITS | Encounter Summary ---
:1950 Author Organization [place] Address [address] [place] [address] Care Team Providers Name Role Phone Ingrid Santana RN Unavailable Unavailable Momo Forbes Primary Care Provider Reason for Visit Auth/Cert - Closed Specialty Diagnoses / Procedures Referred By Contact Refer red To Contact Surgery Diagnoses S/P Kidney Transplant Uu Periop Procedures COMBINED CYSTOSCOPY, REMOVE STENT(S) 500 [place] [address] Phone: Fax: Referral ID Status Reason Start Date Expiration Date Visits Requ ested Visits Authorized [id number] Closed 1 1 Encounter Details Date Type Department Care Team Description 04/01/2014 Hospital Encounter [facility] Migel Merchant, Same Day Surgery [facility] [address] [facility] [address] [place] [address] [place] [address] (Wo rk) Social History Tobacco Use Types [...] Scott RN - 04/01/2014 10:15 AM CDT [facility], [place] Same-Day Surgery Adult Discharge Orders & Instructions [...] To contact a doctor, call or: ??? [phone] and ask for the resident production line assembler for (answered 24 hours a day) ??? Emergency Department: [facility]: [phone] (TTY for hearing impaired: [phone]) documented in this encounter Medications at Time [...] mg) by mouth daily Cytomegalovirus Disease Pharmacoprophylaxis Cholecalciferol (VITAMIN D 5000 1 tab three 0 10/25/2016 PO) times per week clotrimazole (MYCELEX) 10 Place 1 lozenge 90 each 2 02/1205/10/2014 MG LOZGIndications: S/P (10 mg) inside kidney transplant cheek 3 times daily magnesium oxide (MAG-OX) Take 1 tablet (400 60 tablet 5 02/201409/02/2015 400 MG tabletIndications: mg) by mouth 2 Hypophosphatemia times daily PROGRAF 0.5 MG Take 1 capsule 60 capsule 6 03/19/20142013 capsuleIndications: (0.5 mg) by mouth -donor kidney 2 times daily transplant recipient (total dose 1.5 mg twice daily) PROGRAF 1 MG Take 1 capsule (1 60 capsule 6 03/19/201404/26 capsuleIndications: mg) by mouth 2 -donor kidney times daily (total transplant recipient dose 1.5 mg twice daily) warfarin (COUMADIN) 5 MG Take 1 tablet [...] Component Value Ref Test Analysis Performed At [facility] Range Method Time Signature Specimen Unspecified [facility] Urine CAMPUS LABS Special Specimen [facility] Requests received in MICROBIOLOGY preservative Culture Micro No growth [facility] MICROBIOLOGY Micro Report FINAL [facility] Status 04/02/2014 MICROBIOLOGY Specimen Anatomical Collection Method Collection Time Receive d Time (Source) Location / / Volume Laterality 04/01/2014 9:00 AM 4 9:18 CDT AM CDT Migel Merchant MD LAB - MICRO GENERAL ORDERABL ES Performing Organization Address City/State/ZIP Code Phon e Number [facility] [address] [place] [address] [facility]S [facility] MICROBIOLOGY (ABNORMAL) UA with Microscopic (04/01/2014 9:00 AM CDT) Component Value Ref Test Analysis Performed At [facility] Range Method Time Signature Color Urine Yellow [facility] Appearance Urine Clear [facility] Glucose Urine 30 (A) NEG [facility] mg/dL [facility]IV[facility]S Bilirubin Urine Negative NEG [facility] UNIV[facility] LABS Ketones Urine Negative NEG [facility] mg/dL [facility]S Specific [place] 1.017 1.003 - [facility] Urine 1.035 [facility] Blood Urine Moderate (A) [facility]G [facility] pH Urine 6.0 5.0 - [facility] 7.0 pH UNIVERSITY [facility]AMP[facility] LABS Protein Albumin 10 (A) NEG [facility] Urine mg/dL [facility]ERS[facility]S Urobilinogen Normal 0.0 - [facility] mg/dL 2.0 UNIVERSITY mg/dL CAMPUS LABS Nitrite Urine Negative NEG [facility] Leukocyte Negative NEG [facility] Esterase Urine UNIVERSITY [place] LABS Source Unspecified [facility] Urine [facility] LAB[facility] WBC Urine 2 0 - 2 [facility] /HPF [place] [facility] LAB[facility] RBC Urine 30 (H) 0 - 2 [facility] /HPF [facility] LABS Squamous <1 0 - 1 [facility] Epithelial /HPF /HPF [place] Urine CAMPUS LABS Specimen Anatomical Collection Method Collection Time Receive d Time (Source) Location / / Volume Laterality 04/01/2014 9:00 AM 4 9:18 CDT AM CDT Migel Merchant MD LAB - URINE ORDERABLES Performing Organization Address City/State/ZIP Code Phon e Number [address] LABS (ABNORMAL) INR (04/01/2014 8:36 AM CDT) P athologist Signature INR 1.64 (H) 0.86 - 1.14 [facility] LABS Specimen Anatomical Collection Method Collection Time Receive d Time (Source) Location / / Volume Laterality Blood specimen 04/01/2014 8:36 AM 014 8:41 (specimen) CDT AM CDT Momo Jimenez MD LAB - BLOOD ORDERABLES Performing Organization Address City/State/ZIP Code Phon e Number [address] LABS EKG 12-lead, tracing only (04/01/2014 8:28 AM CDT) Patholo gist Method Time Signature [...] athologist Signature Potassium 4.1 3.4 - 5.3 [facility] mmol/L CAMPUS LABS Specimen Anatomical Collection Method Collection Time Receive d Time (Source) Location / / Volume Laterality Blood specimen 04/01/2014 8:11 AM 014 8:27 (specimen) CDT AM CDT Momo Jimenez MD LAB - BLOOD ORDERABLES Performing Organization Address City/[facility]/ZIP Code Phon e Number [address] LABS (ABNORMAL) Hemoglobin (04/01/2014 8:11 AM CDT) athologist Signature Hemoglobin 10.2 (L) 13.3 - [facility] 17.7 g/dL CAMPUS LABS Specimen Anatomical Collection Method Collection Time Receive d Time (Source) Location / / Volume Laterality Blood specimen 04/01/2014 8:11 AM 014 8:27 (specimen) CDT AM CDT Momo Jimenez MD LAB - BLOOD ORDERABLES Performing Organization Address City/[facility]/ZIP Code Phon e Number [address] LABS (ABNORMAL) Glucose by meter (04/01/2014 [...] 0850 (Given - Provider: Addis Brannon APRN WARD NURSE - Comment: Asked by Fellow to give [...] Intra-procedure documented in this encounter Care Teams Cook Candy Relationship Specialty Start Date End Date Momo Forbes PCP - General Family Practice 01/02/[address] [address] Ingrid Santana, RN Registered Nurse Transplant 02/10/12 documented as of this encounter
--- OUTSIDE RECORDS SUMMARY | 2022-05-21 13:24 | XMS_ITS | Encounter Summary ---
:1950 Author Organization [place] Address [address] [place] [address]. [place] [address] Care Team Providers Name Role Phone Ingrid Santana RN Unavailable Unavailable Momo Forbes Primary Care Provider Encounter Details Date Type Department Care Team Description 03/19/2014 Orders Only Nephrology Shiva Kahn RN -donor kidney 2nd Floor, Clinic 2A [facility] transplant recipient Tommy Ruizteen [address] [place] [address] [place] [address] [phone] Social History Tobacco Use Types Packs/Day Years [...] documented in this encounter Care Teams Audit Spec Relationship Specialty Start Date End Date Momo Forbes PCP - General Family Practice 01/02/14 [facility] [address] [place] [address] Ingrid Santana, RN Registered Nurse Transplant 02/10/12 documented as of this encounter
--- OUTSIDE RECORDS SUMMARY | 2022-05-21 13:24 | XMS_ITS | Encounter Summary ---
:1950 Author Organization [place] Address [facility] [place] [address] Care Team Providers Name Role Phone Ingrid Santana RN Unavailable Unavailable Momo Forbes Primary Care Provider Reason for Visit Reason Onset Date Comments Patient Reminder 05/09/2014 Encounter Details Date Type Department Care Team Description 05/09/2014 Telephone Nephrology Yesenia Clements CMA Patient Reminder 2nd Floor, Clinic 2A [place] [phone] Social History Tobacco Use Types Packs/Day [...] on filedocumented in this encounter Care Teams Edge Inker Relationship Specialty Start Date End Date Momo Forbes PCP - General Family Practice 01/02/14 [facility] [address] [place] [phone] Ingrid Santana, RN Registered Nurse Transplant 02/10/12 documented as of this encounter
--- OUTSIDE RECORDS SUMMARY | 2022-05-21 13:24 | XMS_ITS | Encounter Summary ---
:1950 Author Organization [place] Address [address] [facility] [place] [address] Care Team Providers Name Role Phone Ingrid Santana RN Unavailable Unavailable Momo Forbes Primary Care Provider Reason for Referral Specialty Diagnoses / Procedures Referred By Contact Refer red To Contact Migel Merchant MD [facility] 195 [place], [place] [address] Referral ID Status Reason Start Date Expiration Date Visits Requ ested Visits Authorized Scheduling Instructions ANTICOAGULATION CLINIC COLLABORATIVE PRA CTICE AGREEMENT The following represents a collaborative practice agreement among the physicians of the Clinic and staff of the Anticoagulat ion Clinic Service ([facility]) Physicians shall: 1. Refer patients requiring anticoagulat ion to a specialty service staffed by personnel of Pharmacy Services and super vised by Clinic physicians. 2. Respond to questions and referrals fr pharmacy staff regarding delinquent or difficult patients. 3. Inform the [facility] staff when a new patie nt [...] of adverse or sub-therapeutic effects including at [facility] the following: Has the patient experienced [...] Department Care Team Description 03/29/2014 Orders Only [facility] Migel Merchanta dylan fibrillation (H) (Primary Dx); Anticoagulation Clin ic MD Nathan manager grant (current) use of anticoagulant s [address] 420 [facility] 195 [phone] [place], [place] [address] Social History Tobacco Use Types Packs/Day Years [...] Routine Atrial fibri llation (H) Ordered: 03/29/2014 Card Grinder (Current) Use Of Anticoagulants documented as of this encounter Visit Diagnoses Diagnosis Atrial fibrillation (H) - Primary Atrial fibrillation retirement (current) use of anticoagulant s Long-term (current) use of anticoagulant s documented in this encounter Care Teams Nurse Practitioner Per Diem Relationship Specialty Start Date End Date Momo Forbes PCP - General Family Practice 01/02/14 [facility] [address] [place] [address] Ingrid Santana, RN Registered Nurse Transplant 02/10/12 documented as of this encounter
--- OUTSIDE RECORDS SUMMARY | 2022-05-21 13:24 | XMS_ITS | Encounter Summary ---
:1950 Author Organization [place] Address [address] [place] [address]. [place] [address] Care Team Providers Name Role Phone Ingrid Santana RN Unavailable Unavailable Momo Forbes Primary Care Provider Reason for Visit Reason Onset Date Comments Pt. Information/instruction 03/14/2014 Encounter Details Date Type Department Care Team Description 03/14/2014 Telephone [facility] Beto Womack Pt . Interventional Radio martha Dangelo RN Information/instructio [address] [place] [address] Social History Tobacco Use Types Packs/Day Years [...] filedocumented in this encounter Care Teams Supervisor Screen Making Relationship Specialty Start Date End Date Momo Forbes PCP - General Family Practice 01/02/14 [facility] [address] [place] [address] Ingrid Santana RN Registered Nurse Transplant 02/10/12 documented as of this encounter
--- OUTSIDE RECORDS SUMMARY | 2022-05-21 13:24 | XMS_ITS | Encounter Summary ---
:1950 Author Organization [place] Address [address] [place] [address]. [place] [address] Care Team Providers Name Role Phone Ingrid Santana RN Unavailable Unavailable Momo Forbes Primary Care Provider Encounter Details Date Type Department Care Team Description 03/18/2014 Orders Only Nephrology Shiva Kahn RN -donor kidney 2nd Floor, Clinic 2A [facility] transplant recipient Tommy Ruizteen [address] [place] [address] [place] [phone] Social History Tobacco Use Types Packs/Day Years [...] documented in this encounter Care Teams Fruit Express Agent Relationship Specialty Start Date End Date Momo Forbes PCP - General Family Practice 01/02/14 [facility] [address] [place] [address] Ingrid Santana, RN Registered Nurse Transplant 02/10/12 documented as of this encounter
--- OUTSIDE RECORDS SUMMARY | 2022-05-21 13:24 | XMS_ITS | Encounter Summary ---
:1950 Author Organization [place] Address [address] [place] [address] Care Team Providers Name Role Phone Ingrid Santana RN Unavailable Unavailable Momo Forbes Primary Care Provider Encounter Details Date Type Department Care Team Description 04/22/2014 Orders Only [facility] Spong, Joseph Conor isael, [facility] 500 [facility] [address] [place] [phone] [place] [address] [address] [place] [address] (Wo rk) Social History Tobacco [...] (ABNORMAL) Tacrolimus level (05/17/2014 8:17 AM CDT) [facility] Method Time Signature Tacrolimus Last 05/16/2014 [facility] Dose 2000 [facility] Tacrolimus 4.4 (L) 5.0 - [facility] Level 15.0 ug/L [facility] Comment: Tacrolimus Reference Range Kidney [...] Phon e Number [facility] 500 [place], [place] [phone] [place] [address] [facility] (ABNORMAL) Tacrolimus level (05/15/2014 8:15 AM CDT) [facility] gist Method Time Signature Tacrolimus Last 05/14/14 [facility] Dose 2000 [facility] Tacrolimus 4.6 (L) 5.0 - [facility] Level 15.0 ug/L [facility] Comment: Tacrolimus Reference Range Kidney [...] Phon e Number [facility] 500 [place], [place] [phone] [place] [address] [facility] Tacrolimus level (05/10/2014 8:50 AM CDT) [facility] gist Method Time Signature Tacrolimus Not Provided [facility] Last Dose [facility] Tacrolimus 14.3 5.0 - [facility] Level 15.0 ug/L [facility] Comment: Tacrolimus Reference Range Kidney [...] Phon e Number [facility] 500 [place], [place] [phone] [place] [address] [facility] (ABNORMAL) Tacrolimus level (05/07/2014 8:15 AM CDT) [facility] gist Method Time Signature Tacrolimus Last 05/06/14 [facility] Dose 2000 [facility] Tacrolimus 15.9 (H) 5.0 - [facility] Level 15.0 ug/L [facility] Comment: Tacrolimus Reference Range Kidney [...] Phon e Number [facility] 500 [place], [place] [phone] [place] [address] [facility] Tacrolimus level (05/03/2014 8:13 AM CDT) [facility] gist Method Time Signature Tacrolimus Last [facility] Dose 2000 [facility] Tacrolimus 8.8 5.0 - [facility] Level 15.0 ug/L [facility] Comment: Tacrolimus Reference Range Kidney [...] Phon e Number [facility] [address] [facility] Tacrolimus level (04/30/2014 8:20 AM CDT) [facility] gist Method Time Signature Tacrolimus Last 04/29/14 [facility] Dose 2000 [facility] Tacrolimus 12.6 5.0 - [facility] Level 15.0 ug/L [facility] Comment: Tacrolimus Reference Range Kidney [...] Phon e Number [facility] [address] [place] [address] [facility] Tacrolimus level (04/26/2014 8:30 AM CDT) [facility] gist Method Time Signature Tacrolimus Last 04/25/14 [facility] Dose 1900 [facility] Tacrolimus 10.1 5.0 - [facility] Level 15.0 ug/L [facility] Comment: Tacrolimus Reference Range Kidney [...] Phon e Number [facility] 500 [place], [place] [phone] [place] [address] [facility] Tacrolimus level (04/24/2014 9:00 AM CDT) [facility] gist Method Time Signature Tacrolimus Last 04/23/14 [facility] Dose 1900 [facility] Tacrolimus 13.1 5.0 - [facility] Level 15.0 ug/L [facility] Comment: Tacrolimus Reference Range Kidney [...] LAB - BLOOD ORDERABLES Performing Organization Address City/State/[facility] Code Phon e Number [facility] [address] LABS documented in this encounter Visit Diagnoses Not on filedocumented in this encounter Care Teams Knot Borer Relationship Specialty Start Date End Date Momo Forbes PCP - General Family Practice 01/02/14 [facility] [address] [place] [address] Ingrid Santana, RN Registered Nurse Transplant 02/10/12 documented as of this encounter
--- OUTSIDE RECORDS SUMMARY | 2022-05-21 13:24 | XMS_ITS | Encounter Summary ---
:1950 Author Organization [place] Address [facility] [place] [address] Care Team Providers Name Role Phone Ingrid Santana RN Unavailable Unavailable Momo Forbes Primary Care Provider Reason for Visit Reason Onset Date Comments Anticoagulation 03/29/2014 Encounter Details Date Type Department Care Team Description 03/29/2014 Telephone [facility] Mary Sheffield RN Anticoagulation Anticoagulation Clin [place] [phone] Social History Tobacco Use Types Packs/Day [...] \this patient. He has INRs done at [facility] He takes Warfarin 5 mg daily [...] on filedocumented in this encounter Care Teams Dancing Master Relationship Specialty Start Date End Date Moom Forbes PCP - General Family Practice 01/02/14 [facility] [address] [place] [address] Ingrid Santana, RN Registered Nurse Transplant 02/10/12 documented as of this encounter
--- OUTSIDE RECORDS SUMMARY | 2022-05-21 13:24 | XMS_ITS | Encounter Summary ---
:1950 Author Organization [place] Address [address] [place] [address]. [place] [address] Care Team Providers Name Role Phone Ingrid Santana RN Unavailable Unavailable Momo Forbes Primary Care Provider Encounter Details Date Type Department Care Team Description 03/11/2014 Orders Only Transplant Surgery Celina oCle (Primary Clinic A, Dx) 2nd Floor, Clinic 2A [address] [address] [facility] [address] Social History Tobacco Use Types [...] channels documented in this encounter Care Teams Risk Analyst Relationship Specialty Start Date End Date Momo Forbes PCP - General Family Practice 01/02/14 [facility] 1999 [place], [place] [phone] Ingrid Santana, RN Registered Nurse Transplant 02/10/12 documented as of this encounter
--- OUTSIDE RECORDS SUMMARY | 2022-05-21 13:24 | XMS_ITS | Encounter Summary ---
:1950 Author Organization [place] Address [facility] [address] Care Team Providers Name Role Phone Ingrid Santana RN Unavailable Unavailable Momo Forbes Primary Care Provider Reason for Visit Reason Comments Heart Problem 2 m f/u Post op AFIB s/p DCC V. on warfarin 4 weeks Encounter Details Date Type Department Care Team Description 04/09/2014 [facility] [place], Atrial fibrill ation (H) (Primary Dx); [facility] Enrique Maria pecified essential hypertension; Heart Other and unspecified hyperlipidemia; Tommy [facility] DM (diabetes mellitus), type 2 (H) Building [facility] 4th Floor, Clinic 4B [address] [facility] [facility] [address] [phone] [place], [place] (Work) [address] [phone] Social History Tobacco Use Types Packs/Day Years [...] questions or concerns. 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 Specific [place] Urine 04/01/2014 1.017 1.003 - 1.035 Final [...] NEG Ketones Urine Negative NEG mg/dL Specific [place] Urine 1.017 1.003 - 1.035 Blood Urine [...] uncontrolled documented in this encounter Care Teams Yeast Supervisor Relationship Specialty Start Date End Date Momo Forbes PCP - General Family Practice 01/02/14 [facility] [address] [place] [address] Ingrid Santana, RN Registered Nurse Transplant 02/10/12 documented as of this encounter
--- OUTSIDE RECORDS SUMMARY | 2022-05-21 13:24 | XMS_ITS | Encounter Summary ---
:1950 Author Organization [place] Address [address] [place] [address] Care Team Providers Name Role Phone Ingrid Santana RN Unavailable Unavailable Momo Forbes Primary Care Provider Reason for Visit Auth/Cert - Closed Specialty Diagnoses / Procedures Referred By Contact Refer red To Contact Surgery Diagnoses S/P Kidney Transplant Uu Periop Procedures COMBINED CYSTOSCOPY, REMOVE STENT(S) 500 [place] [address] Phone: Fax: Referral ID Status Reason Start Date Expiration Date Visits Requ ested Visits Authorized [id number] Closed 1 1 Encounter Details Date Type Department Care Team Description 04/01/2014 Surgery [facility] Migel Merchant Romoval of Right Double PeriOp Services J Stent 500 [facility] 420 [place] [address] [place] [address] [place] [address] (Wo rk) Surgery Details Date/Time Status Location [...] Scott RN - 04/01/2014 10:[address] [facility] [place] Same-Day Surgery Adult Discharge Orders & Instructions [...] To contact a doctor, call or: ??? [phone] and ask for the resident chemistry quality control technician for (answered 24 hours a day) ??? Emergency Department: [facility]: [phone] (TTY for hearing impaired: [phone]) documented in this encounter Medications at Time [...] 04/01/2014 AM CDT 10:15 AM CDT Migel LARES - [facility] POCT Performing Organization Address City/State/ZIP Code Phon e Number [facility] POINT OF CARE TEST, GLUCOSE POINT OF CARE TEST, GLUCOSE Urine culture (04/01/2014 9:00 AM CDT) Component Value Ref Test Analysis Performed At [facility] gist Range Method Time Signature Specimen Unspecified [facility] Description Urine CAMPUS LABS Special Specimen [facility] Requests received in MICROBIOLOGY preservative Culture Micro No growth [facility] MICROBIOLOGY Micro Report FINAL [facility] Status 04/02/2014 MICROBIOLOGY Specimen Anatomical Collection Method Collection Time Receive d Time (Source) Location / / Volume Laterality 04/01/2014 9:00 AM 4 9:18 CDT AM CDT Migel Merchant MD LAB - MICRO GENERAL ORDERABL ES Performing Organization Address City/[facility]/ZIP Code Phon e Number [facility] [address] UNIVERSITY CAMPUS LABS [facility] MICROBIOLOGY (ABNORMAL) UA with Microscopic (04/01/2014 9:00 AM CDT) Component Value Ref Test Analysis Performed At Patholo gist Range Method Time Signature Color Urine Yellow [facility] Appearance Urine Clear [facility] LABS Glucose Urine 30 (A) NEG [facility] mg/dL UNIVERSITY CAMPUS LABS Bilirubin Urine Negative NEG [facility]IVERSITY CAMP[facility] Ketones Urine Negative NEG [facility] mg/dL UNIVERSITY CAMPUS LABS Specific [place] 1.017 1.003 - [facility] Urine 1.035 UNIVERSITY [...] Code Phon e Number [facility] [address] [facility] UNIVERSITY CAMP[facility] LABS (ABNORMAL) INR (04/01/2014 8:36 AM CDT) P athologist Signature INR 1.64 (H) 0.86 - 1.14 [facility] UNIVERSITY CAMP[facility] LABS Specimen Anatomical Collection Method Collection Time Receive d Time (Source) Location / / Volume Laterality Blood specimen 04/01/2014 8:36 AM 08/11/2 014 8:41 (specimen) CDT AM CDT Momo Jimenez MD LAB - BLOOD ORDERABLES Performing Organization Address City/State/ZIP Code Phon e Number [facility] [address] LABS EKG 12-lead, tracing only (04/01/2014 8:28 AM CDT) [facility] gist Method Time Signature Interpretation ECG Click View RADIOLOGY Image link RESULTS to view waveform and result Specimen (Source) Anatomical Collection Method Collection Time Re ceived Time Location / / Volume Laterality 04/01/2014 8:28 AM CDT Momo Jimenez MD ECG ORDERABLES Performing Organization Address City/State/ZIP Code Phon e Number RADIOLOGY RESULTS Potassium (04/01/2014 8:11 AM CDT) athologist [facility] Potassium 4.1 3.4 - 5.3 [facility] mmol/L CAMPUS LABS Specimen Anatomical Collection Method Collection Time Receive d Time (Source) Location / / Volume Laterality Blood specimen 04/01/2014 8:11 AM 014 8:27 (specimen) CDT AM CDT Momo Jimenez MD LAB - BLOOD ORDERABLES Performing Organization Address City/State/ZIP Code Phon e Number [facility] [address] LABS (ABNORMAL) Hemoglobin (04/01/2014 8:11 AM CDT) athologist [facility] Hemoglobin 10.2 (L) 13.3 - [facility] 17.7 g/dL CAMPUS LABS Specimen Anatomical Collection Method Collection Time Receive d Time (Source) Location / / Volume Laterality Blood specimen 04/01/2014 8:11 AM 014 8:27 (specimen) CDT AM CDT Momo Jimenez MD LAB - BLOOD ORDERABLES Performing Organization Address City/[facility]/ZIP Code Phon e Number [address] [place] [address] LABS (ABNORMAL) Glucose by meter (04/01/2014 8:02 AM CDT) athologist Signature Glucose 158 (H) 60 - 99 POINT OF CARE mg/dL TEST, GLUCOSE Specimen Anatomical Collection Method Collection Time Receive d Time (Source) Location / / Volume Laterality 04/01/2014 8:02 AM 4 8:05 CDT AM CDT Migel Merchant MD LAB - [facility] POCT Performing Organization Address City/State/ZIP Code [...] 0850 (Given - Provider: Addis Brannon APRN VASC TECH - Comment: Asked by Fellow to give [...] Intra-procedure documented in this encounter Care Teams Fisher Seal Relationship Specialty Start Date End Date Momo Forbes PCP - General Family Practice 01/02/14 [facility] 2000 [place] [address] Ingrid Santana, RN Registered Nurse Transplant 02/10/12 documented as of this encounter
--- OUTSIDE RECORDS SUMMARY | 2022-05-21 13:24 | XMS_ITS | Encounter Summary ---
:1950 Author Organization [place] Address 24[address] [facility] [address] Care Team Providers Name Role Phone Ingrid Santana RN Unavailable Unavailable Momo Forbes Primary Care Provider Reason for Visit Auth/Cert - Closed Specialty Diagnoses / Procedures Referred By Contact Refer red To Contact Surgery Diagnoses S/P Kidney Transplant Uu Periop Procedures COMBINED CYSTOSCOPY, REMOVE STENT(S) 500 [place] [address] Phone: Fax: Referral ID Status Reason Start Date Expiration Date Visits Requ ested Visits Authorized [id number] Closed 1 1 Encounter Details Date Type Department Care Team Description 04/01/2014 Anesthesia Event [facility] Clari Torres MD PeriOp Services [facility] ANESTHESIA 500 [place] [address] [place] [address] [place], [place] [address] (Wo rk) Anesthesia Record Procedure Summary Procedure [...] alternatives discussed with: patient or sales representative public utilities. I agree with the plan written by [...] Intra-op documented in this encounter Care Teams Handkerchief Cutter Relationship Specialty Start Date End Date Momo Forbes PCP - General Family Practice 01/02/14 [place] [phone] Ingrid Santana, RN Registered Nurse Transplant 02/10/12 documented as of this encounter
--- OUTSIDE RECORDS SUMMARY | 2022-05-21 13:24 | XMS_ITS | Encounter Summary ---
:1950 Author Organization [place] Address [address] [place] [address]. [place] [address] Care Team Providers Name Role Phone Ingrid Santana RN Unavailable Unavailable Momo Forbes Primary Care Provider Encounter Details Date Type Department Care Team Description 03/13/2014 Orders Only Nephrology Shiva Kahn, Atrial fibrillation (H); 2nd Floor, Clinic 2A RN -donor kidney transplant stefani Wilburn [address] [phone] Social History Tobacco Use Types Packs/Day Years [...] fibrillation (H) Atrial fibrillation -donor kidney transplant stefani nt Kidney replaced by transplant documented in this encounter Care Teams Donor Services Coordinator Relationship Specialty Start Date End Date Momo Forbes PCP - General Family Practice 01/02/14 [facility] 1999 [place] [address] Ingrid Santana, RN Registered Nurse Transplant 02/10/12 documented as of this encounter
--- OUTSIDE RECORDS SUMMARY | 2022-05-21 13:24 | XMS_ITS | Encounter Summary ---
:1950 Author Organization [place] Address [address] [place] [address]. [place] [address] Care Team Providers Name Role Phone Ingrid Santana RN Unavailable Unavailable Momo Forbes Primary Care Provider Reason for Visit Reason Onset Date Comments Refill Request 04/26/2014 Encounter Details Date Type Department Care Team Description 04/26/2014 Refill Nephrology Shiva Kahn RN Refill Request 2nd Floor, Clinic 2A [facility] Sanders Wangensteen [address] [facility] [place], [place] [phone] [place] [address] [place] [phone] Social History Tobacco Use Types Packs/Day [...] transplant documented in this encounter Care Teams Animal Technician Relationship Specialty Start Date End Date Momo Forbes PCP - General Family Practice 01/02/14 [facility] 1999 [place] [address] Ingrid Santana, RN Registered Nurse Transplant 02/10/12 documented as of this encounter
--- OUTSIDE RECORDS SUMMARY | 2022-05-21 13:24 | XMS_ITS | Encounter Summary ---
:1950 Author Organization [place] Address [address] [place] [address]. [place] [address] Care Team Providers Name Role Phone Ingrid Santana RN Unavailable Unavailable Momo Forbes Primary Care Provider Reason for Visit Reason Onset Date Comments Refill Request 04/05/2014 Tamy Cabrera Encounter Details Date Type Department Care Team Description 04/05/2014 Refill The Transplant Migel Martinez, Refill Request 2nd Floor, Clinic 2A (Tommy Cabrera[address] antoprazole) Building [facility] 195 6 [facility] 88 [place] [address] [phone] Social History Tobacco Use Types Packs/Day Years [...] Telephone Encounter - Manuel Aubrey Galarza - 04/05/2014 12:07 PM CDT Drug Name: Pantoprazole Last Fill Date: 03/06/14 Quantity: 30 Drug: Jantoven Last Fill: 03/14/14 Qty: 30 [facility] [phone] documented in this encounter Plan of Treatment Not on filedocumented as of this encounter Visit Diagnoses Diagnosis S/P kidney transplant Kidney replaced by transplant Atrial fibrillation (H) Atrial fibrillation documented in this encounter Care Teams Wash Test Checker Relationship Specialty Start Date End Date Momo Forbes PCP - General Family Practice 01/02/14 [facility] 1999 [place] [address] Ingrid Santana, RN Registered Nurse Transplant 02/10/12 documented as of this encounter
--- OUTSIDE RECORDS SUMMARY | 2022-05-21 13:24 | XMS_ITS | Encounter Summary ---
:1950 Author Organization [employer] Address [address] [place] [address]. [place] [address] Care Team Providers Name Role Phone Ingrid Santana RN Unavailable Unavailable Momo Forbes Primary Care Provider Encounter Details Date Type Department Care Team Description 05/02/2014 Orders Only Nephrology Shiva Kahn RN -donor kidney 2nd Floor, Clinic 2A [facility] transplant recipient Tommy Ruizteen [address] [place] [address] [place] [phone] Social History Tobacco Use Types Packs/Day Years [...] documented in this encounter Care Teams Professional Engineer Relationship Specialty Start Date End Date Momo Forbes PCP - General Family Practice 01/02/14 [facility] [address] [place] [address] Ingrid Santana, RN Registered Nurse Transplant 02/10/12 documented as of this encounter
--- OUTSIDE RECORDS SUMMARY | 2022-05-21 13:24 | XMS_ITS | Encounter Summary ---
:1950 Author Organization [place] Address [address] [place] [address]. [place] [address] Care Team Providers Name Role Phone Ingrid Santana RN Unavailable Unavailable Momo Forbes Primary Care Provider Reason for Visit Reason Comments RECHECK s/p kidney tx Auth/Cert - Closed Specialty Diagnoses / Procedures Referred By Contact Refer red To Contact Surgery Diagnoses S/P Kidney Transplant Uu Periop Procedures COMBINED CYSTOSCOPY, REMOVE STENT(S) 500 [place] [address] Phone: Fax: Referral ID Status Reason Start Date Expiration Date Visits Requ ested Visits Authorized [id number] Closed 1 1 Encounter Details Date Type Department Care Team Description 04/01/2014 Office Visit Nephrology Deysi Alicea Immunosuppressed status (H) (Primary Dx); 2nd Floor, Clinic MD Aline High risk medication use; 2A [facility] Kidney replaced by homeroan t; Tommy [place] S/P kidney transplant Wang[place]en [address] [place] [address] [place], [place] (Work) [address] [phone] Social History Tobacco Use Types Packs/Day Years [...] -no follow up, I will ask his payroll and benefits coordinator to obtain results from his local [...] at home regularly; BP checked by me gyr790/80; HE was previously on Metoprolol 12.5 mg [...] Years of Education: 14 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
--- OUTSIDE RECORDS SUMMARY | 2022-05-21 13:24 | XMS_ITS | Encounter Summary ---
:1950 Author Organization [place] Address [address] [place] [address] Care Team Providers Name Role Phone Ingrid Santana RN Unavailable Unavailable Momo Forbes Primary Care Provider Encounter Details Date Type Department Care Team Description 03/11/2014 Anesthesia Event [facility] Aly Esquivel MD PeriOp Services [address] [facility] 500 [facility] 294 [place] [address] [place] [address] [phone] (Wo rk) Anesthesia Record Procedure Summary Procedure [...] alternatives discussed with: patient or sales representative uniforms. Possibility of blood products discussed. Procedures and [...] on filedocumented in this encounter Care Teams Creative Specialist Relationship Specialty Start Date End Date Momo Forbes PCP - General Family Practice 01/02/14 [facility] [address] [place] [address] Ingrid Santana, RN Registered Nurse Transplant 02/10/12 documented as of this encounter
--- OUTSIDE RECORDS SUMMARY | 2022-05-21 13:24 | XMS_ITS | Encounter Summary ---
:1950 Author Organization [place] Address [facility] [place] [address] Care Team Providers Name Role Phone Ingrid Santana RN Unavailable Unavailable Momo Forbes Primary Care Provider Reason for Visit Reason Onset Date Comments Pre Visit Planning - Done 04/08/2014 2 m f/u Post o p AFIB s/p DCCV. on warfarin 4 weeks Encounter Details Date Type Department Care Team Description 04/08/2014 PRE VISIT [facility] [address] Pre Visit Planning - Physicians Heart MD David Done (2 m f/u Post op [facility] AF IB s/p DCCV. on [facility] warfarin 4 weeks) 4th Floor, Clinic 4B [phone] [place] [address] (Wo rk) [address] [phone] Social History Tobacco Use Types Packs/Day Years [...] on filedocumented in this encounter Care Teams State Fire Marshal Relationship Specialty Start Date End Date Momo Forbes PCP - General Family Practice 01/02/14 [facility] [address] [place] [phone] Ingrid Santana, RN Registered Nurse Transplant 02/10/12 documented as of this encounter
--- OUTSIDE RECORDS SUMMARY | 2022-05-21 13:24 | XMS_ITS | Encounter Summary ---
:1950 Author Organization [place] Address [address] [place] [address] Care Team Providers Name Role Phone Ingrid Santana RN Unavailable Unavailable Momo Forbes Primary Care Provider Encounter Details Date Type Department Care Team Description 03/15/2014 Hospital Encounter [facility] ED Susy Cole, Lymphocele Unit [facility] [address] [place] [phone] [place], [place] [phone] (Wo rk) Social History Tobacco Use Types [...] until healed, wash daily with antibacterial soap. [facility] INTERVENTIONAL RADIOLOGY DEPARTMENT Procedure Physician Andrea Can Date of procedure Telephone numbers: [phone] Tuesday-Tuesday 8:00 am to 4:30 pm [phone] After 4:30 pm Tuesday-Tuesday, Weekends & Holidays. Ask for the Interventional Radiologist pond sawyer. Someone is available 24 hours/day [facility] toll free number: Tuesday-Tuesday 8:00 am [...] by mouth 2 Hypophosphatemia times daily PROGRAF 1 MG Take 1 capsule (1 60 capsule 6 03/13/201403/18 capsuleIndications: mg) by mouth 2 -donor kidney times daily (total transplant recipient dose 1.5 mg twice daily) tacrolimus (PROGRAF BRAND) Take 1 capsule 30 capsule 6 03/1403/18/2014 0.5 MG capsuleIndications: (0.5 mg) by mouth -donor kidney 2 times daily transplant recipient (total dose 1.5 mg twice daily) warfarin (COUMADIN) [...] 2A sleepy, VSS, site D&I, no discomfort Holly Stewart RN - 03/15/2014 9:20 AM [...] CCRN March 15, 2014 9:20 AM Pager: [phone] [facility] - 03/15/2014 8:58 AM CDT Discussed order with Dr Merchant today. He would like drain placement if the fluid appears thin. If itappears to be a hematoma then aspiration only. D/w Drea resident and IR staff doing the case. Thanks [facility] OPERATOR VACUUM ([phone]) Jeanette Lopez RN - 03/15/2014 8:14 AM CDT Prepped and consented, INR 1.1 FSBS is 219 documented in this encounter Procedure Notes Drea Glasgow MD - 03/15/2014 9:23 AM CDT Interventional Radiology Brief Post Procedure Note Pre Procedure Diagnosis: perinephric fluid collection Post Procedure Diagnosis: Same Procedure: Aspiration of RLQ fluid collection over the tranplant kidney Proceduralist: Drea Glasgow MD, Andrea Gibbons PA-C Radiation Technician: None Time Out: Prior to the start [...] 9:51 AM 4 CDT 10:05 AM CDT Varvara A Douglas MD LAB - [facility] POCT Performing Organization Address City/State/ZIP Code Phon [...] Dr. Yossi Cox Resident: Dr. Drea Glasgow Radiation Technician: Andrea Gibbons PA-C. Medications: 1% lidocaine and [...] Dr. Yossi Cox Resident: Dr. Drea Glasgow Radiation Technician: Andrea Gibbons PA-C. Medications: 1% lidocaine and [...] Value Ref Test Analysis Performed At [facility] Range Method Time Signature Specimen Aspirate [facility] Gram Stain Many PMNs seen [facility] No organisms seen MICROBIOLOGY Micro Report FINAL [facility] Status 03/15/2014 MICROBIOLOGY Specimen Anatomical Collection Method Collection Time Receive d Time (Source) Location / / Volume Laterality 03/15/2014 9:05 AM 4 9:59 CDT AM CDT Celina Cole MD LAB - MICRO GENERAL ORDERABL ES Performing Organization Address City/[facility] Phon e Number [address] LABS [facility] MICROBIOLOGY (ABNORMAL) Fluid Culture (03/15/2014 9:05 AM CDT) Component Value Ref Test Analysis Performed At [facility] Range Method Time Signature Specimen Aspirate [facility] Description [facility] LABS Culture Micro Light growth Coagulase negat jo Staphylococcus Susceptibility testing not [facility] routinely done MICROBIOLOGY (A) Micro Report FINAL 03/18/2014 [facility] Status MICROBIOLOGY Specimen Anatomical Collection Method Collection Time Receive d Time (Source) Location / / Volume Laterality Fluid specimen SPECIMEN OBTAINED 03/15/2014 9:05 AM 9:59 (specimen) BY ASPIRATION / CDT AM CDT Unknown Celina Cole MD LAB - MICRO GENERAL ORDERABL ES Performing Organization Address City/[facility] Code Phon e Number [address] LABS [facility] MICROBIOLOGY Triglyceride Fluid (03/15/2014 9:05 AM CDT) [facility] Method Time Signature Triglyceride Aspirate [facility] Fluid Source PERINEPHRIC [facility] LABS Triglyceride 94 mg/dL [facility] Fluid [facility] LABS Comment: No reference [...] Phon e Number [facility] 500 [place], [place] [phone] [place] [address] LABS Cell count with differential fluid (03/15/2014 9:05 AM CDT) Component Value Ref Test Analysis Performed At [facility] gist Range Method Time Signature Body Fluid Aspirate [facility] Analysis Source PERINEPHRIC [facility] LABS Color Fluid Brown [facility] LABS Appearance Turbid [facility] Fluid [facility] LABS RBC Fluid << Do Not /uL [facility] Report >> [facility] LABS WBC Fluid [address]2387 /uL [facility] LABS % Neutrophils 97 % [facility] Fluid [facility] LABS % Lymphocytes 2 % [facility] Fluid [facility] LABS % Eosinophils 1 % [facility] Fluid [facility] LABS Specimen Anatomical Collection Method Collection Time Receive d Time (Source) Location / / Volume Laterality SPECIMEN OBTAINED 03/15/2014 9:05 AM 02/20 9:56 BY ASPIRATION / CDT AM CDT Unknown Celina Cole MD LAB - BODY FLUIDS ORDERABLES Performing Organization Address City/[facility]/ZIP Code Phon e Number [facility] [address] LABS Lactate dehydrogenase fluid (03/15/2014 9:05 AM CDT) Component Value Ref Test Analysis Performed At [facility] Range Method Time Signature LD Fluid Source Aspirate [facility] LABS Lactate Canceled, Test credited U/L [facility] [...] - BODY FLUIDS ORDERABLES Performing Organization Address City/[facility]/ZIP Code Phon e Number [facility] 500 [place], [place] [phone] [place] [address] LABS Creatinine fluid (03/15/2014 9:05 AM CDT) Patholo gist Method Time Signature Creatinine Aspirate [facility] Fluid Source PERINEPHRIC [facility] LABS Creatinine 1.5 mg/dL [facility] Fluid [facility] LABS Comment: No reference [...] - BODY FLUIDS ORDERABLES Performing Organization Address City/[facility]/ZIP Code Phon e Number [phone] [place] [address] LABS INR point of care (03/15/2014 8:06 [...] [facility]/ZIP Code Phon e Number [facility] POINT OF [...] (COMPLETED) 0810 (Given - Provider: Jeanette Lopez, BOGDAN) Routine, 3 g, Intravenous, PRE-OP/PRE-SD OCEDURE, Starting on Tue03/15/14 at 0734, For [...] Intra-procedure documented in this encounter Care Teams Process Architect Relationship Specialty Start Date End Date Momo Forbes PCP - General Family Practice 01/02/14 [facility] [address] [place] [address] Ingrid Santana, RN Registered Nurse Transplant 02/10/12 documented as of this encounter
--- OUTSIDE RECORDS SUMMARY | 2022-05-21 13:24 | XMS_ITS | Encounter Summary ---
:1950 Author Organization [place] Address [address] [place] [address] Care Team Providers Name Role Phone Ingrid Santana RN Unavailable Unavailable Momo Forbes Primary Care Provider Encounter Details Date Type Department Care Team Description 03/22/2014 Orders Only [facility] Spong, Joseph Conor isael, [facility] 500 [facility] [address] [place] [address] [phone] [place] [address] [place] [address] (Wo rk) Social History Tobacco [...] Results Tacrolimus level (04/19/2014 8:40 AM CDT) [facility] Method Time Signature Tacrolimus Not Provided [facility] Last Dose [facility] LABS Tacrolimus 10.3 5.0 - [facility] Level 15.0 ug/L [facility] LABS Comment: Tacrolimus Reference Range Kidney Transplant [...] Phon e Number [facility] 500 [place] [address] [facility] LABS Tacrolimus level (04/16/2014 8:22 AM CDT) [facility] gist Method Time Signature Tacrolimus Not Provided [facility] Last Dose [facility] LABS Tacrolimus 9.1 5.0 - [facility] Level 15.0 ug/L [facility] LABS Comment: Tacrolimus Reference Range Kidney Transplant [...] Phon e Number [facility] [address] [facility] LABS Tacrolimus level (04/11/2014 8:40 AM CDT) [facility] gist Method Time Signature Tacrolimus Last 04/10/14 [facility] Dose 19:00 [facility] LABS Tacrolimus 14.4 5.0 - [facility] Level 15.0 ug/L [facility] LABS Comment: Tacrolimus Reference Range Kidney Transplant [...] City/State/[facility] Code Phon e Number [facility] 500 [place], [place] [phone] [place] [address] [facility] LABS Tacrolimus level (04/09/2014 8:45 AM CDT) [facility] gist Method Time Signature Tacrolimus Last 04/08/14 [facility] Dose 2000 [facility] LABS Tacrolimus 11.7 5.0 - [facility] Level 15.0 ug/L [facility] LABS Comment: Tacrolimus Reference Range Kidney Transplant [...] Phon e Number [facility] 500 [place], [place] [phone] [place] [address] LABS Tacrolimus level (04/05/2014 9:40 AM CDT) [facility] gist Method Time Signature Tacrolimus Last 1999 [facility] Dose 04/04/14 [facility] LABS Tacrolimus 9.7 5.0 - [facility] Level 15.0 ug/L [facility] LABS Comment: Tacrolimus Reference Range Kidney Transplant [...] Phon e Number [facility] 500 [place] [address] [facility] LABS (ABNORMAL) Tacrolimus level (03/28/2014 8:30 AM CDT) [facility] gist Method Time Signature Tacrolimus Last 03/27/14 [facility] Dose 1900 [facility] LABS Tacrolimus 15.8 (H) 5.0 - [facility] Level 15.0 ug/L [facility] LABS Comment: Tacrolimus Reference Range Kidney Transplant [...] Phon e Number [facility] 500 [place] [address] [facility] LABS Tacrolimus level (03/26/2014 9:18 AM CDT) [facility] gist Method Time Signature Tacrolimus Last 03/25/14 [facility] Dose 1900 [facility] LABS Tacrolimus 9.2 5.0 - [facility] Level 15.0 ug/L [facility] LABS Comment: Tacrolimus Reference Range Kidney Transplant [...] Phon e Number [facility] [address] [facility] LABS Tacrolimus level (03/14/2014 9:00 AM CDT) [facility] gist Method Time Signature Tacrolimus Last 2000 [facility] Dose 03/13/14 [facility] LABS Tacrolimus 9.5 5.0 - [facility] Level 15.0 ug/L [facility] LABS Comment: Tacrolimus Reference Range Kidney Transplant [...] Phon e Number [facility] 500 [place], [place] [phone] [place] [address] LABS documented in this encounter Visit Diagnoses Not on filedocumented in this encounter Care Teams Information Technology Associate Relationship Specialty Start Date End Date Momo Forbes PCP - General Family Practice 01/02/14 [facility] [address] [place] [address] Ingrid Santana, RN Registered Nurse Transplant 02/10/12 documented as of this encounter
--- OUTSIDE RECORDS SUMMARY | 2022-05-21 13:25 | XMS_ITS | Encounter Summary ---
:1950 Author Organization [place] Address [address] [place] [address] Care Team Providers Name Role Phone Ingrid Santana RN Unavailable Unavailable Momo Forbes Primary Care Provider Encounter Details Date Type Department Care Team Description 02/19/2014 Orders Only [facility] Spong, Joseph Conor isael, [facility] 500 [facility] [address] [place] [address] [phone] [place] [address] 6[address] [place] [address] (Wo rk) Social History Tobacco [...] Results Tacrolimus level (03/19/2014 9:05 AM CDT) [facility] Method Time Signature Tacrolimus Last 03/18/14 [facility] Dose 2100 [facility] LABS Tacrolimus 13.1 5.0 [...] Phon e Number [facility] 500 [place], [place] [phone] [place] [address] [facility] LABS Tacrolimus level (03/12/2014 9:40 AM CDT) [facility] gist Method Time Signature Tacrolimus Not Provided [facility] Last Dose [facility] LABS Tacrolimus 7.3 5.0 - [facility] Level 15.0 ug/L [facility] [...] Phon e Number [facility] [address] [facility] LABS Tacrolimus level (03/08/2014 10:15 AM CDT) [facility] gist Method Time Signature Tacrolimus Last 03/07/14 [facility] Dose 2000 [facility] LABS Tacrolimus 6.1 5.0 - [facility] Level 15.0 ug/L GRACE [...] Phon e Number [facility] [address] [facility] LABS Tacrolimus level (03/06/2014 5:13 PM CDT) [facility] gist Method Time Signature Tacrolimus Last 1400 [facility] Dose 03/05/14 [facility] LABS Tacrolimus 11.3 5.0 - [facility] Level 15.0 ug/L GR[facility] [...] Phon e Number [facility] 500 [place], [place] [phone] [place] [address] [facility] LABS Tacrolimus level (03/01/2014 8:10 AM CDT) [facility] gist Method Time Signature Tacrolimus Last 02/28/14 [facility] Dose 1930 [facility] LABS Tacrolimus 10.6 5.0 - [facility] Level 15.0 ug/L GRACE [...] Phon e Number [facility] 500 [place], [place] [phone] [place] [address] [facility] LABS Tacrolimus level (02/27/2014 8:15 AM CDT) [facility] gist Method Time Signature Tacrolimus Last 02/26/14 [facility] Dose 2000 [facility] LABS Tacrolimus 11.4 5.0 - [facility] Level 15.0 ug/L [facility] [...] Phon e Number [facility] 500 [place], [place] [phone] [place] [address] LABS HLA Lukasz Class II Single Antigen (02/25/2014 10:43 AM CDT) Component Value Ref Test Analysis Performed At [facility] gist Range Method Time Signature SA2 [...] City/State/ZIP Code Phon e Number [facility] Immunology[place] [address] [facility] 500 [facility] [address] Building, Room 3-580 HISTOTRAC HLA Lukasz Class I Single Antigen (02/25/2014 10:43 AM CDT) Component Value Ref Test Analysis Performed At [facility] Range Method Time Signature SA1 Test SA HI HISTOTRAC Method SA1 Cell Class I HISTOTRAC SA1 PRA %POS 0 HISTOTRAC SA1 Hi Risk None HISTOTRAC Lukasz SA1 Mod Risk None HISTOTRAC Lukasz SA1 Comments Test performed by modified p charles. Serum heat inactivated and treated HISTOTRAC with [...] City/State/ZIP Code Phon e Number [facility] [place]ology[place] [address] [facility] 500 [facility] [address] [facility], Room 3-580 HISTOTRAC PRA Interfering Substance SCR (02/25/2014 10:43 AM CDT) Component Value Ref Test Analysis Performed At [facility] Range Method Time Signature Interfering Luminex HISTOTRAC [...] City/State/ZIP Code Phon e Number [facility] [place] [address] [facility] 500 [facility] [address] [facility] Building, Room 3-580 HISTOTRAC Tacrolimus level (02/21/2014 8:45 AM CDT) [facility] gist Method Time Signature Tacrolimus Last 02/20/14 [facility] Dose 2000 [facility] LABS Tacrolimus 7.9 5.0 - [facility] Level 15.0 ug/L [facility] [...] Phon e Number [facility] 500 [place], [place] [phone] [place] [address] LABS documented in this encounter Visit Diagnoses Not on filedocumented in this encounter Care Teams Computer Repairer Relationship Specialty Start Date End Date Momo Forbes PCP - General Family Practice 01/02/14 [facility] [address] [place] [address] Ingrid Santana, RN Registered Nurse Transplant 02/10/12 documented as of this encounter
--- OUTSIDE RECORDS SUMMARY | 2022-05-21 13:25 | XMS_ITS | Encounter Summary ---
:1950 Author Organization [place] Address [address] [place] [address]. [place] [address] Care Team Providers Name Role Phone Ingrid Santana RN Unavailable Unavailable Momo Forbes Primary Care Provider Reason for Visit Reason Onset Date Comments Refill Request 02/15/2014 Encounter Details Date Type Department Care Team Description 02/15/2014 Refill Nephrology Shiva Kahn RN Refill Request 2nd Floor, Clinic 2A [facility] Sanders [place] [address] [facility] [place], [place] [phone] [place] [address] [place] [phone] Social History Tobacco Use Types Packs/Day [...] on filedocumented in this encounter Care Teams Social Work Associate Relationship Specialty Start Date End Date Momo Forbes PCP - General Family Practice 01/02/14 [facility] [address] [place] [address] Ingrid Santana, RN Registered Nurse Transplant 02/10/12 documented as of this encounter
--- OUTSIDE RECORDS SUMMARY | 2022-05-21 13:25 | XMS_ITS | Encounter Summary ---
:1950 Author Organization [place] Address [facility] [place] [address] Care Team Providers Name Role Phone Ingrid Santana RN Unavailable Unavailable Momo Forbes Primary Care Provider Reason for Visit Reason Onset Date Comments Refill Request 03/04/2014Augyusuf Encounter Details Date Type Department Care Team Description 03/04/2014 Refill The Transplant Kaitlynn Moreno MD Refill Request 2nd Floor, Clinic 2A [facility] [address] [address] [place], [place] [phone] (Wo rk) [address] [phone] Social History Tobacco Use Types Packs/Day Years [...] Notes Telephone Encounter - Aubrey Jackson - 03/04/2014 8:47 AM CDT Drug Name: Augtoven Last Fill Date: 02/08/14 Quantity: 60 Michael Manuel [facility] [phone] documented in this encounter Plan of Treatment Not on filedocumented as of this encounter Visit Diagnoses Diagnosis Atrial fibrillation (H) Atrial fibrillation documented in this encounter Care Teams Data Steward Relationship Specialty Start Date End Date Momo Forbes PCP - General Family Practice 01/02/[address] [address] Ingrid Santana, RN Registered Nurse Transplant 02/10/12 documented as of this encounter
--- OUTSIDE RECORDS SUMMARY | 2022-05-21 13:25 | XMS_ITS | Encounter Summary ---
:1950 Author Organization [place] Address [address] [place] [address]. [place] [address] Care Team Providers Name Role Phone Ingrid Santana RN Unavailable Unavailable Momo Forbes Primary Care Provider Encounter Details Date Type Department Care Team Description 02/15/2014 Orders Only Nephrology Shiva Kahn RN Kidney replaced by transplant; 2nd Floor, Clinic 2A [facility] S/P kidney transplant Tommy [address] [place] [phone] Social History Tobacco Use Types Packs/Day Years [...] transplant documented in this encounter Care Teams Plate Colorer Relationship Specialty Start Date End Date Momo Forbes PCP - General Family Practice 01/02/14 [facility] [address] [place] [address] Ingrid Santana, RN Registered Nurse Transplant 02/10/12 documented as of this encounter
--- OUTSIDE RECORDS SUMMARY | 2022-05-21 13:25 | XMS_ITS | Encounter Summary ---
:1950 Author Organization [place] Address [facility] [place] [address] Care Team Providers Name Role Phone Ingrid Santana RN Unavailable Unavailable Momo Forbes Primary Care Provider Reason for Visit Reason Onset Date Comments Previsit 02/15/[address] Merchant 02/18 Encounter Details Date Type Department Care Team Description 02/15/2014 Telephone Transplant Surgery Radha Acosta LPN Prev isit (Appt with Dr Anthony Merchant 02/18) 2nd Floor, Clinic [address] [phone] Social History Tobacco Use Types Packs/Day Years [...] on filedocumented in this encounter Care Teams Capacity Planning Engineer Relationship Specialty Start Date End Date Momo Forbes PCP - General Family Practice 01/02/[address] [address] Ingrid Santana, RN Registered Nurse Transplant 02/10/12 documented as of this encounter
--- OUTSIDE RECORDS SUMMARY | 2022-05-21 13:25 | XMS_ITS | Encounter Summary ---
:1950 Author Organization [place] Address Critical access hospital0 [facility] [place] [address] Care Team Providers Name Role Phone Ingrid Santana RN Unavailable Unavailable Momo Raines Primary Care Provider Reason for Visit Reason Comments Consult consult for afib Encounter Details Date Type Department Care Team Description 02/18/2014 Office Visit [facility], (H[facility] (Primary Dx) Heart MD [facility] Building [place] 4th Floor, Clinic 4B [address] [phone] [place], [place] (Work) [address] [phone] Social History Tobacco Use Types Packs/Day Years [...] fibrillation documented in this encounter Care Teams Expander Relationship Specialty Start Date End Date Momo Raines PCP - General Family Practice 01/02/14 [facility] [address] [place] [address] Ingrid Santana, RN Registered Nurse Transplant 02/10/12 documented as of this encounter
--- OUTSIDE RECORDS SUMMARY | 2022-05-21 13:25 | XMS_ITS | Encounter Summary ---
:1950 Author Organization [place] Address [address] [place] [address]. [place] [address] Care Team Providers Name Role Phone Ingrid Santana RN Unavailable Unavailable Momo Forbes Primary Care Provider Encounter Details Date Type Department Care Team Description 02/11/2014 Orders Only Nephrology Josseline Nice, Kidney replaced by 2nd Floor, Clinic 2A CREDIT PORTFOLIO MANAGER transplant (Primary Sanders Akila Dx) [address] [phone] Social History Tobacco Use Types Packs/Day Years [...] Primary documented in this encounter Care Teams Receptionist Clerk Relationship Specialty Start Date End Date Momo Forbes PCP - General Family Practice 01/02/14 [facility] [address] [place] [address] Ingrid Santana RN Registered Nurse Transplant 02/10/12 documented as of this encounter
--- OUTSIDE RECORDS SUMMARY | 2022-05-21 13:25 | XMS_ITS | Encounter Summary ---
:1950 Author Organization [place] Address [address] [place] [address]. [place] [address] Care Team Providers Name Role Phone Ingrid Santana RN Unavailable Unavailable Momo Forbes Primary Care Provider Reason for Visit Reason Comments Surgical Followup Post op for kidney transplan t POD 16 Encounter Details Date Type Department Care Team Description 02/18/2014 Office Visit Transplant Surgery Migel Merchant S/P jamari y transplant (Primary Dx); Clinic MD Nathan Postop check; 2nd Floor, Clinic [address] [place] [address] Immunosuppression (H); [facility] 1 95 Atrial fibrillation (H) [id number] [place] [address] [place], [place] (Work) [phone] Social History Tobacco Use [...] appearing no apparent distress Drain in place. Anderson in place. Hematology: Recent Labs Lab Test [...] Stent: out in ~ 4 weeks 4. [place]. Follow up next Tuesday for staple removal [...] fibrillation documented in this encounter Care Teams Sap Bw Developer Relationship Specialty Start Date End Date Momo Forbes PCP - General Family Practice 01/02/14 [place] [id number] Ingrid Santana, RN Registered Nurse Transplant 02/10/12 documented as of this encounter
--- OUTSIDE RECORDS SUMMARY | 2022-05-21 13:25 | XMS_ITS | Encounter Summary ---
:1950 Author Organization [place] Address [facility] [place] [address] Care Team Providers Name Role Phone Ingrid Santana RN Unavailable Unavailable Momo Forbes Primary Care Provider Reason for Visit Reason Onset Date Comments Refill Request 02/12/2014 clotrimazole Encounter Details Date Type Department Care Team Description 02/12/2014 Refill Nephrology Kaitlynn Leon MD Refill Request 2nd Floor, Clinic 2A [facility] (clotrimazole) [address] [phone] Social History Tobacco Use Types Packs/Day Years [...] encounter Miscellaneous Notes Telephone Encounter - Lianne Braswell [facility] - 02/12/2014 8:50 AM CDT Last Fill Date: 02/08/14 Last Fill Quantity: 70 Last Office Visit: 02/11/14 Proactive request, and also requesting a new quantity for a one month supply. Thanks! Lianne Braswell, PharmD [facility] Transplant Program [phone] documented in this encounter Plan of Treatment Not on filedocumented as of this encounter Visit Diagnoses Diagnosis S/P kidney transplant Kidney replaced by transplant documented in this encounter Care Teams Crozer Operator Relationship Specialty Start Date End Date Momo Forbes PCP - General Family Practice 01/02/14 [facility] [address] [place] [address] Ingrid Santana, RN Registered Nurse Transplant 02/10/12 documented as of this encounter
--- OUTSIDE RECORDS SUMMARY | 2022-05-21 13:25 | XMS_ITS | Encounter Summary ---
:1950 Author Organization [place] Address [address] [place] [address]. [place] [address] Care Team Providers Name Role Phone Ingrid Santana RN Unavailable Unavailable Momo Forbes Primary Care Provider Encounter Details Date Type Department Care Team Description 02/18/2014 Orders Only Nephrology Shiva Kahn, -donor kidney transp lant recipient (Primary Dx); 2nd Floor, Clinic 2A RN High risk medications (not anticoagulant s) long-term use; Tommy Wilburn [facility] CATY HIGGINS intermediate manager (current) use of anticoagulant s [place] [id number] [place] [phone] Social History Tobacco Use Types Packs/Day Years [...] s documented in this encounter Care Teams Prefitter Relationship Specialty Start Date End Date Momo Forbes PCP - General Family Practice 01/02/14 [facility] [address] [place] [address] Ingrid Santana, RN Registered Nurse Transplant 02/10/12 documented as of this encounter
--- OUTSIDE RECORDS SUMMARY | 2022-05-21 13:25 | XMS_ITS | Encounter Summary ---
:1950 Author Organization [place] Address [facility] [place] [address] Care Team Providers Name Role Phone Ingrid Santana RN Unavailable Unavailable Momo Forbes Primary Care Provider Encounter Details Date Type Department Care Team Description 02/11/2014 Radiant Appointment [facility] 1st Floor, Clinic 1D [place], [place] [address] Social History Tobacco Use Types Packs/Day Years [...] on filedocumented in this encounter Care Teams Sensitized Paper Tester Relationship Specialty Start Date End Date Momo Forbes PCP - General Family Practice 01/02/14 [facility] [address] [place] [address] Ingrid Santana, RN Registered Nurse Transplant 02/10/12 documented as of this encounter
--- OUTSIDE RECORDS SUMMARY | 2022-05-21 13:25 | XMS_ITS | Encounter Summary ---
:1950 Author Organization [place] Address [facility] [place] [address] Care Team Providers Name Role Phone Ingrid Santana RN Unavailable Unavailable Momo Forbes Primary Care Provider Reason for Visit Reason Comments Eval/Assessment LBA Encounter Details Date Type Department Care Team Description 02/12/2014 Infusion Therapy Specialty Infusion Finger, Migel Mac y replaced by Visit and Procedure MD Nathan transplant (Primary Center [address] [place] [address] Dx) [facility] 19 5 n [facility] 2nd Floor [address] [phone] [place], [place] (Work) [phone] Social History Tobacco Use [...] Guthrie Thank you for choosing [facility] Special[facility] ([facility]) for your transplant cares. The following information is a summary of our appointment as well as important reminders. Additional information: We will see you on for labs & assessment. We look forward in seeing you on your next appointment here at [facility]. Please don???t hesitate to callus at [phone] to reschedule any of your appointments or to speak with one of the [facility] registered nurses. It was a pleasure taking care of you today. Sincerely, Gladis Olvera, BOGDAN [facility] Special[facility] Infusion [facility] - [address] [place] [address] January 2014Tuesday 1 2 3 4 5 6 7 8 9 10 11 12 13 14 Admission 12:55 PM Migel Merchant MD [address] [facility] (Discharge: 02/08/2014) XR CHEST 2 VIEWS 1:55 PM (10 min.) Uuxr1 [facility], Radiology TRANSPLANT KIDNEY RECIPIENT DONOR 4:00 PM Migel Merchant MD UU OR XR CHEST PORT 2 VIEWS 11:10 PM (15 min.) Uuxrph1 [facility], Radiology 15 US RENAL TRANSPLANT 7:50 AM (50 min.) Uuus2 [facility], Ultrasound 16 IP EVALUATION 6:00 AM (60 min.) Angela Wilder, PT [facility], Physical Therapy UU TRANSPLANT MEDICATIONS 11:00 AM (120 min.) Josseline Almendarez, BOGDAN [facility], Patient Learning [place] UU TRANSPLANT FOLLOW-UP CARE 1:00 PM (120 min.) Josseline Almendarez RN [facility], Patient Learning [place] ECH LIMITED 3:35 PM (60 min.) Uuechipr1 [facility], Echocardiography 17 IP TREATMENT 5:30 AM (30 min.) Roderick Lawson, PT [facility], Physical Therapy 18 IP TREATMENT 5:30 AM (30 min.) Yesenia Rodriguez, PT [facility], Physical Therapy 19 IP TREATMENT 5:30 AM (30 min.) Reina Kenny, PT [facility], Physical Therapy US RENAL 11:15 AM (60 min.) Uuus2 [facility], Ultrasound 20 IP TREATMENT 5:30 AM (30 min.) Reina Kenny, PT [facility], Physical Therapy UU TRANSPLANT MEDICATIONS 11:00 AM (120 min.) Em Mohan RN [facility] Patient Learning [place] 21 [facility] NEW TRANSPLANT 7:00 AM (360 min.) [facility] Sipc Chair 9 Specialty Infusion and Procedure Center 22 [facility] NEW TRANSPLANT 7:00 AM (360 min.) [facility] Sipc Chair 11 [facility] Procedure Center 23 [facility] NEW TRANSPLANT 7:00 AM (360 min.) [facility] Sip Chair 12 Specialty Infusion and Procedure Center [facility] KIDNEY TX DISCHARGE 9:00 AM (30 min.) Kaitlynn Leon MD [facility] US RENAL TRANSPLANT 2:00 PM (60 min.) [address] 24 [facility] NEW TRANSPLANT 7:00 AM (360 min.) [facility] Sipc Bed 14 Specialty Infusion and Procedure Center [facility] SIPC RETURN 9:00 AM (30 min.) Kaitlynn Leon MD [facility] 25 26 [facility] SIPC PROCEDURE 7:00 AM (60 min.) [facility] Sipc Chair 9 Specialty Infusion and Procedure Center [facility] SIPC RETURN 8:00 AM (30 min.) Kaitlynn Leon MD [facility] 27 28 29 30 P NEW 9:00 AM (30 min.) [facility] Cvc Consult [facility] Heart [facility] KIDNEY POST OP 1:45 PM (15 [...] PM CDT Diego Guthrie came to [facility] today for a lab and assess following a Kidney transplant on 02/02/14. Discharge date: 02/08/14 student records coordinator: Leandro Kahn Phone number patient can be reached at: [phone] Physical Assessment: See physical assessment located under Document Flowsheets. Incision site: with modesta & slight ecchymosis. Dry dressing changed. Lines: MARGARET drain to bulb suction is draining sero sanguinous fluid. Continues to drain more than 30 ml/day. Pt will have Tuesday off from [facility] and will return for LBA. Gibbs: N/A [...] care for today: Pt presented to [facility] for labs and assessment. Labs drawn, reviewed with Dr. Leon. Oral phosphorus tablets ordered. Coumadin dose decreased to 5 mg every evening. Pt will have Tuesday off, return and will start with [facility] Nursing on TuesdayFebruary 15. Pt's [...] Plan Pt will follow up with [facility] on 02/14 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/Home Restoration Service Supervisor verbalized understanding, all questions answered: YES Discharged [...] Results (ABNORMAL) INR (02/12/2014 7:41 AM CDT) P athologist Signature INR 2.64 (H) 0.86 - 1.14 [facility] Specimen Anatomical Collection Method Collection Time Receive d Time (Source) Location / / Volume Laterality Blood specimen 02/12/2014 7:41 AM 014 7:43 (specimen) CDT AM CDT Kaitlynn Leon MD LAB - BLOOD ORDERABLES Performing Organization Address City/State/ZIP Code Phon e Number [facility] [address] [place] [address] [facility] Tacrolimus level (02/12/2014 7:41 AM CDT) [facility] gist Method Time Signature Tacrolimus Last 02/11/14 [facility] Dose 1900 [facility] Tacrolimus 8.4 5.0 - [facility] Level 15.0 ug/L [facility] Comment: Tacrolimus Reference Range [...] Organization Address City/State/ZIP Code Phon e Number [address] [address] [place] [facility] (ABNORMAL) CBC with platelets differential (02/12/2014 7:41 AM CDT) [facility] gist Method Time Signature WBC 5.0 4.0 - [facility] 11.0 [place] 10e9/L [place] [facility] RBC Count 2.41 (L) 4.4 - 5.9 [facility] 10e12/L [facility] Hemoglobin 7.4 (L) 13.3 - [facility] 17.7 g/dL [facility] Hematocrit 22.3 (L) 40.0 - [facility] 53.0 % [facility] MCV 93 78 - 100 [facility] fl [facility] MCH 30.7 26.5 - [facility] 33.0 pg [facility] MCHC 33.2 31.5 - [facility] 36.5 g/dL [facility] RDW 14.5 10.0 - [facility] 15.0 % [facility] Platelet Count 95 (L) 150 - 450 [facility] 10e9/L [facility] Diff Method Automated [facility] Method [facility] % Neutrophils 85.2 % [facility] % Lymphocytes 5.6 % [facility] % Monocytes 4.6 % [facility] % Eosinophils 4.2 % [facility] % Basophils 0.2 % [facility] % Immature 0.2 % [facility] Granulocytes [facility] Absolute 4.3 1.6 - 8.3 [facility] Neutrophil 10e9/L [facility] Absolute 0.3 (L) 0.8 - 5.3 [facility] Lymphocytes 10e9/L [facility] Absolute 0.2 0.0 - 1.3 [facility] Monocytes 10e9/L [facility] Absolute 0.2 0.0 - 0.7 [facility] Eosinophils 10e9/L [facility] Absolute 0.0 0.0 - 0.2 [facility] Basophils 10e9/L [facility] Abs Immature 0.0 0 - 0.4 [facility] Granulocytes 10e9/L [facility] Specimen Anatomical Collection Method Collection Time Receive d Time (Source) Location / / Volume Laterality Blood specimen 02/12/2014 7:41 AM 014 7:43 (specimen) CDT AM CDT Kaitlynn Leon MD LAB - BLOOD ORDERABLES Performing Organization Address City/State/ZIP Code Phon e Number [facility] [address] LABS (ABNORMAL) Phosphorus (02/12/2014 7:41 AM CDT) athologist Signature Phosphorus 1.7 (L) 2.5 - 4.5 [facility] mg/dL [place] [facility] Specimen Anatomical Collection Method Collection Time Receive d Time (Source) Location / / Volume Laterality Blood specimen 02/12/2014 7:41 AM 014 7:43 (specimen) CDT AM CDT Kaitlynn Leon MD LAB - BLOOD ORDERABLES Performing Organization Address City/State/ZIP Code Phon e Number [facility] [address] LABS Magnesium (02/12/2014 7:41 AM CDT) athologist Signature Magnesium 1.8 1.6 - 2.3 [facility] mg/dL [place] [facility] Specimen Anatomical Collection Method Collection Time Receive d Time (Source) Location / / Volume Laterality Blood specimen 02/12/2014 7:41 AM 014 7:43 (specimen) CDT AM CDT Kaitlynn Leon MD LAB - BLOOD ORDERABLES Performing Organization Address City/State/ZIP Code Phon e Number [facility] [address] [place], [place] [phone] [place] [address] LABS (ABNORMAL) Basic metabolic panel (02/12/2014 7:41 AM CDT) [facility] gist Method Time Signature Sodium 142 133 - 144 [facility] mmol/L [facility] Potassium 4.9 3.4 - 5.3 [facility] mmol/L [facility] Chloride 113 (H) 94 - 109 [facility] mmol/L [facility] Carbon Dioxide 21 20 - 32 [facility] mmol/L [facility] Anion Gap 9 6 - 17 [facility] mmol/L [facility] Glucose 127 (H) 60 - 99 [facility] mg/dL [facility] Urea Nitrogen 24 7 - 30 [facility] mg/dL [facility] Creatinine 1.92 (H) 0.66 - [facility] 1.25 mg/dL [facility] GFR Estimate 36 (L) >60 [facility] mL/min/1.7 [place] [address] CAMPUS LABS GFR Estimate If 43 (L) >60 [facility] Black mL/min/1.7 [place] [address] CAMPUS LABS Calcium 8.9 8.5 - 10.4 [facility] mg/dL [facility] Specimen Anatomical Collection Method Collection Time Receive d Time (Source) Location / / Volume Laterality Blood specimen 02/12/2014 7:41 AM 014 7:43 (specimen) CDT AM CDT Kaitlynn Leon MD LAB - BLOOD ORDERABLES Performing Organization Address City/State/ZIP Code Phon e Number [facility] [address] [place] [address] [facility] documented in this encounter [...] after. documented in this encounter Care Teams Putty Tinter Maker Relationship Specialty Start Date End Date Momo Forbes PCP - General Family Practice 01/02/14 [facility] [address] [place] [phone] Ingrid Santana, RN Registered Nurse Transplant 02/10/12 documented as of this encounter
--- OUTSIDE RECORDS SUMMARY | 2022-05-21 13:25 | XMS_ITS | Encounter Summary ---
:1950 Author Organization [place] Address [facility] [place] [address] Care Team Providers Name Role Phone Ingrid Santana RN Unavailable Unavailable Momo Forbes Primary Care Provider Reason for Visit Reason Onset Date Comments Previsit 02/20/2014 Encounter Details Date Type Department Care Team Description 02/20/2014 Telephone Transplant Surgery C nanda Merchant, Migel Evans MD Previsit 2nd Floor, Clinic [address]A [address] [place] [address] [facility] [place] [phone] Social History Tobacco Use Types Packs/Day Years [...] in this encounter Care Teams Food And Drug Inspector Relationship Specialty Start Date End Date Momo Forbes PCP - General Family Practice 01/02/[address] [address] Ingrid Santana, RN Registered Nurse Transplant 02/10/12 documented as of this encounter
--- OUTSIDE RECORDS SUMMARY | 2022-05-21 13:25 | XMS_ITS | Encounter Summary ---
:1950 Author Organization [place] Address [facility] [place] [address] Care Team Providers Name Role Phone Ingrid Santana RN Unavailable Unavailable Momo Forbes Primary Care Provider Reason for Visit Reason Comments Eval/Assessment LABS, ASSESSMENT, EDUCATION AND DRESSING CHANGE. Encounter Details Date Type Department Care Team Description 02/14/2014 Infusion Therapy Specialty Infusion Kaitlynn Leon MD Kidney replaced by transplant (Primary D x); Visit and Procedure Center [facility] S/P kidney transplant [facility] [address] [phone] [place], [place] (Work) [phone] Social History Tobacco Use [...] 3:25 PM CDT Diego Guthrie came to [facility] today for a lab and assess following a Kidney transplant on 02/02/14. Discharge date: 02/08/14 document control coordinator: Leandro [place] Phone number patient can be reached at: [phone] Physical Assessment: See physical assessment located under [...] Tuesday. 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/Head Nurse verbalized understanding, all questions answered: YES Discharged [...] Signature INR 2.29 (H) 0.86 - 1.14 [facility] LABS Specimen Anatomical Collection Method Collection Time Receive d Time (Source) Location / / Volume Laterality Blood specimen 02/14/2014 7:51 AM 014 7:58 (specimen) CDT AM CDT Kaitlynn Leon MD LAB - BLOOD ORDERABLES Performing Organization Address City/State/ZIP Code Phon e Number [facility] [address] [place], [place] [phone] [place] [address] LABS Tacrolimus level (02/14/2014 7:51 AM CDT) [facility] gist Method Time Signature Tacrolimus Last 1914 [facility] Dose 02/13/14 [facility] LABS Tacrolimus 7.5 5.0 - [facility] Level 15.0 ug/L [facility] [...] Code Phon e Number [facility] [address] [place], [place] [phone] [place] [address] LABS (ABNORMAL) CBC with platelets differential (02/14/2014 7:51 AM CDT) [facility] gist Method Time Signature WBC 6.9 4.0 - [facility] 11.0 [place] 10e9/L [place] LABS RBC Count 2.55 (L) 4.4 - 5.9 [facility] 10e12/L [facility] LABS Hemoglobin 7.8 (L) 13.3 - [facility] 17.7 g/dL [facility] LABS Hematocrit 23.4 (L) 40.0 - [facility] 53.0 % [facility] LABS MCV 92 78 - 100 [facility] fl [facility] LABS MCH 30.6 26.5 - [facility] 33.0 pg [facility] LABS MCHC 33.3 31.5 - [facility] 36.5 g/dL [facility] LABS RDW 14.9 10.0 - [facility] 15.0 % [facility] LABS Platelet Count 122 (L) 150 - 450 [facility] 10e9/L [facility] LABS Diff Method Automated [facility] Method [facility] LABS % Neutrophils 88.7 % [facility] LABS % Lymphocytes 2.6 % [facility] LABS % Monocytes 4.5 % [facility] LAB[facility] % Eosinophils 3.8 % [facility] LAB[facility] % Basophils 0.1 % [facility] [place] [facility] LABS % Immature 0.3 % [facility] Granulocytes [facility] LABS Absolute 6.1 1.6 - 8.3 [facility] Neutrophil 10e9/L [facility] LABS Absolute 0.2 (L) 0.8 - 5.3 [facility] Lymphocytes 10e9/L [facility] LABS Absolute 0.3 0.0 - 1.3 [facility] Monocytes 10e9/L [facility] LABS Absolute 0.3 0.0 - 0.7 [facility] Eosinophils 10e9/L [facility] LABS Absolute 0.0 0.0 - 0.2 [facility] Basophils 10e9/L [facility] LABS Abs Immature 0.0 0 - 0.4 [facility] Granulocytes 10e9/L [facility] LABS Specimen Anatomical Collection Method Collection Time Receive d Time (Source) Location / / Volume Laterality Blood specimen 02/14/2014 7:51 AM 014 7:53 (specimen) CDT AM CDT Joseph Quintana MD LAB - BLOOD ORDERABLES Performing Organization Address City/[facility]/ZIP Code Phon e Number [address] LABS (ABNORMAL) Phosphorus (02/14/2014 7:51 AM CDT) P athologist Signature Phosphorus 2.4 (L) 2.5 - 4.5 [facility] mg/dL CAMPUS LABS Specimen Anatomical Collection Method Collection Time Receive d Time (Source) Location / / Volume Laterality Blood specimen 02/14/2014 7:51 AM 014 7:53 (specimen) CDT AM CDT Joseph Quintana MD LAB - BLOOD ORDERABLES Performing Organization Address City/[facility]/ZIP Code Phon e Number [address] LABS Magnesium (02/14/2014 7:51 AM CDT) P athologist Signature Magnesium 1.6 1.6 - 2.3 [facility]ITY mg/dL CAMPUS LABS Specimen Anatomical Collection Method Collection Time Receive d Time (Source) Location / / Volume Laterality Blood specimen 02/14/2014 7:51 AM 014 7:53 (specimen) CDT AM CDT Joseph Quintana MD LAB - BLOOD ORDERABLES Performing Organization Address City/[facility] Code Phon e Number [facility] [address] [place], [place] [phone] [place] [address] LABS (ABNORMAL) Basic metabolic panel (02/14/2014 7:51 AM CDT) Patholo gist Method Time Signature Sodium 143 133 - 144 [facility] mmol/L [facility] LABS Potassium 5.4 (H) 3.4 - 5.3 [facility] mmol/L [facility] LABS Chloride 113 (H) 94 - 109 [facility] mmol/L [facility] LABS Carbon Dioxide 20 20 - 32 [facility] mmol/L [facility] LABS Anion Gap 9 6 - 17 [facility] mmol/L [facility] LABS Glucose 193 (H) 60 - 99 [facility] mg/dL [facility] LABS Urea Nitrogen 18 7 - 30 [facility] mg/dL [facility] LABS Creatinine 1.82 (H) 0.66 - [facility] 1.25 mg/dL [facility] LABS GFR Estimate 38 (L) >60 [facility] mL/min/1.7 [place] m2 CAMPUS LABS GFR Estimate If 46 (L) >60 [facility] Black mL/min/1.7 [place] m2 [place] LABS Calcium 9.2 8.5 - 10.4 [facility] mg/dL [facility] LABS Specimen Anatomical Collection Method Collection Time Receive d Time (Source) Location / / Volume Laterality Blood specimen 02/14/2014 7:51 AM 014 7:53 (specimen) CDT AM CDT Joseph Quintana MD LAB - BLOOD ORDERABLES Performing Organization Address City/[facility] Code Phon e Number [facility] [address] [place] [address] [facility] LABS documented in this encounter Visit Diagnoses Diagnosis Kidney replaced by transplant - Primary S/P kidney transplant Kidney replaced by transplant documented in this encounter Care Teams Supplier Quality Engineer Relationship Specialty Start Date End Date Momo Forbes PCP - General Family Practice 01/02/14 [facility] [address] [place] [address] Ingrid Santana, RN Registered Nurse Transplant 02/10/12 documented as of this encounter
--- OUTSIDE RECORDS SUMMARY | 2022-05-21 13:25 | XMS_ITS | Encounter Summary ---
:1950 Author Organization [place] Address [facility] [place] [address] Care Team Providers Name Role Phone Ingrid Santana RN Unavailable Unavailable Momo Forbes Primary Care Provider Reason for Visit Reason Comments Surgical Followup kidney tx 02/02/14 Encounter Details Date Type Department Care Team Description 02/25/2014 Office Visit Transplant Surgery Migel Merchant Hypophosp hatemia (Primary Dx); Clinic MD Nathan Kidney replaced by transplant; 2nd Floor, Clinic [address] [place] -donor kidney transp lant recipient; [address] 1 95 High risk medications (not anticoagulant s) long-term use; Building correction (current) use of anticoagulant s; [address] [place], [place] Hyp[place]emia; [place] [address] Orthostatic hypotension [facility] 88 [place], [place] (Work) [phone] Social History Tobacco Use [...] Somewhat lethargic. Otherwise well Abd mod obesity. Parlin in place. Drain with small amt of serosang fluid. Some bulging in mid wound(lemon sized) c/w known hematoma. Procedure: Anderson and drain removed. Steri strips applied. Hematology: [...] will give mag and phos prescription. 5. Anderson - Out today 6 Drain -- out [...] sults (not anticoagulants) section . long-term use correction (current) use of anticoagulants PHOSPHORUS Routine 02/25/2014 [...] Component Value Ref Test Analysis Performed At [facility] Range Method Time Signature BK Virus DNA Plasma, EDTA [facility] Quant Source anticoagulant [facility] LABS BK Virus DNA <390 [facility] Quant Unit: cpy/mL [facility] Copy/mL [place] LABS BK Virus DNA <2.6 [facility] Quant Log Unit: log [place] (Note) [place] LABS INTERPRETIVE INFORMATION: BK Virus, Quantitation by [...] methodologies. Test developed and characteristics determined by [employer]. See Compliance Statement A: [employer]/CS BK Virus DNA Not Detected [facility] Quant Interp Reference range: Not Detected [place] (Note) [place] LABS Performed by [employer], [address] [place] [id number] [email or web address], Kj Mcmillan MD, Lab. Director Specimen Anatomical Collection Method Collection Time Receive d Time (Source) Location / / Volume Laterality Blood specimen 02/25/2014 10:54 4 (specimen) AM CDT 10:55 AM CDT Deysi Alicea MD LAB - MICRO GENERAL ORDERABL ES Performing Organization Address City/State/ZIP Code Phon e Number [phone] [place] [address] LABS Immunology recipient: SOT PRA (Post Tx for Donor Spec Antibody) (02/25/2014 10:54 AM CDT) [facility] Method Time Signature Immunology PRA [facility] Test Name [facility] LABS Immunology Specimen [facility] Result received - [facility] LABS report to follow upon completion. Specimen Anatomical Collection Method Collection Time Receive d Time (Source) Location / / Volume Laterality Blood specimen 02/25/2014 10:54 4 (specimen) AM CDT 10:55 AM CDT Deysi Alicea MD LAB - IMMUNOLOGY ORDERABLES Performing Organization Address City/State/ZIP Code Phon e Number [address] LABS (ABNORMAL) INR (02/25/2014 10:53 AM CDT) P athologist Signature INR 2.39 (H) 0.86 - 1.14 [facility] LABS Specimen Anatomical Collection Method Collection Time Receive d Time (Source) Location / / Volume Laterality Blood specimen 02/25/2014 10:53 4 (specimen) AM CDT 10:54 AM CDT Migel Merchant MD LAB - BLOOD ORDERABLES Performing Organization Address City/[facility]/ZIP Code Phon e Number [address] LABS (ABNORMAL) Magnesium (02/25/2014 10:53 AM CDT) P athologist Signature Magnesium 1.5 (L) 1.6 - 2.3 [facility] mg/dL [place] LABS Specimen Anatomical Collection Method Collection Time Receive d Time (Source) Location / / Volume Laterality Blood specimen 02/25/2014 10:53 4 (specimen) AM CDT 10:54 AM CDT Deysi Alicea MD LAB - BLOOD ORDERABLES Performing Organization Address City/[facility]/ZIP Code Phon e Number [facility] [address] LABS (ABNORMAL) Phosphorus (02/25/2014 10:53 AM CDT) P athologist Signature Phosphorus 1.3 (L) 2.5 - 4.5 [facility] mg/dL [place] LABS Specimen Anatomical Collection Method Collection Time Receive d Time (Source) Location / / Volume Laterality Blood specimen 02/25/2014 10:53 4 (specimen) AM CDT 10:54 AM CDT Deysi Alicea MD LAB - BLOOD ORDERABLES Performing Organization Address City/[facility] Code Phon e Number [facility] [address] [place] [phone] [facility] LABS Mycophenolic acid (02/25/2014 10:53 AM CDT) Component Value Ref Test Analysis Performed At Patholo gist Range Method Time Signature Last Dose 02/24/14 ?? 1999 [facility] Mycophenolic CORRECTED ON 02/25 AT 1055: PREVIOUSLY REPORTED 1999 [facility] Acid CAMPUS LABS Mycophenolic 1.39 1.00 - [facility] Acid Mg/L 3.50 [facility] mg/L [place] [facility] MPA Glucuronide 80.2 30.0 - [facility] Level 95.0 [place] mg/L [place] [facility] Specimen Anatomical Collection Method Collection Time Receive d Time (Source) Location / / Volume Laterality Blood specimen 02/25/2014 10:53 4 (specimen) AM CDT 10:54 AM CDT Deysi Alicea MD LAB - BLOOD ORDERABLES Performing Organization Address [facility]/ZIP Code Phon e Number [facility] [address] LABS Tacrolimus level (02/25/2014 10:53 AM CDT) Patholo gist Method Time Signature Tacrolimus 02/24/14 ?1999 [facility] Last Dose CORRECTED ON 02/25 AT 1055: PREVIOUSLY REPORTED 1999 [facility] LABS Tacrolimus 9.1 5.0 - [facility] Level 15.0 ug/L [facility] LABS Comment: Tacrolimus Reference Range [...] Phon e Number [facility] [address] LABS (ABNORMAL) Basic metabolic panel (02/25/2014 10:53 AM CDT) [facility] Method Time Signature Sodium 137 133 - 144 [facility] mmol/L [facility] LABS Potassium 4.6 3.4 - 5.3 [facility] mmol/L [facility] LABS Chloride 108 94 - 109 [facility] mmol/L [facility] LABS Carbon Dioxide 19 (L) 20 - 32 [facility] mmol/L [facility] LABS Anion Gap 10 6 - 17 [facility] mmol/L [facility] LABS Glucose 217 (H) 60 - 99 [facility] mg/dL [facility] LABS Urea Nitrogen 13 7 - 30 [facility] mg/dL [facility] LABS Creatinine 1.48 (H) 0.66 - [facility] 1.25 mg/dL [facility] LABS GFR Estimate 48 (L) >60 [facility] mL/min/1.7 [place] m2 [place] LABS GFR Estimate If 58 (L) >60 [facility] Black mL/min/1.7 [place] [address] CAMPUS LABS Calcium 9.6 8.5 - 10.4 [facility] mg/dL [facility] LABS Specimen Anatomical Collection Method Collection Time Receive d Time (Source) Location / / Volume Laterality Blood specimen 02/25/2014 10:53 4 (specimen) AM CDT 10:54 AM CDT Deysi Alicea MD LAB - BLOOD ORDERABLES Performing Organization Address City/State/ZIP Code Phon e Number [phone] [place] [address] [facility] LABS (ABNORMAL) CBC with platelets differential (02/25/2014 10:53 AM CDT) [facility] gist Method Time Signature WBC 4.9 4.0 - [facility] 11.0 [facility] 10e9/L CAMPUS LABS RBC Count 2.67 (L) 4.4 - 5.9 [facility] 10e12/L [facility] LABS Hemoglobin 7.8 (L) 13.3 - [facility] 17.7 g/dL [facility] LABS Hematocrit 23.5 (L) 40.0 - [facility] 53.0 % [facility] LABS MCV 88 78 - 100 [facility] fl [facility] [place] LABS MCH 29.2 26.5 - [facility] 33.0 pg [facility] LABS MCHC 33.2 31.5 - [facility] 36.5 g/dL [facility] [place] LABS RDW 14.3 10.0 - [facility] 15.0 % [facility] LABS Platelet Count 179 150 - 450 [facility] 10e9/L [facility] LABS Diff Method Automated [facility] Method [facility] LABS % Neutrophils 89.4 % [facility] LABS % Lymphocytes 3.9 % [facility] % Monocytes 5.1 % [facility] % Eosinophils 1.2 % [facility] LABS % Basophils 0.2 % [facility] LABS % Immature 0.2 % [facility] Granulocytes [facility] LABS Absolute 4.4 1.6 - 8.3 [facility] Neutrophil 10e9/L [facility] LABS Absolute 0.2 (L) 0.8 - 5.3 [facility] Lymphocytes 10e9/L [facility] LABS Absolute 0.3 0.0 - 1.3 [facility] Monocytes 10e9/L [facility] LABS Absolute 0.1 0.0 - 0.7 [facility] Eosinophils 10e9/L [facility] LABS Absolute 0.0 0.0 - 0.2 [facility] Basophils 10e9/L [facility] LABS Abs Immature 0.0 0 - 0.4 [facility] Granulocytes 10e9/L [facility] LABS Specimen Anatomical Collection Method Collection Time Receive d Time (Source) Location / / Volume Laterality Blood specimen 02/25/2014 10:53 4 (specimen) AM CDT 10:54 AM CDT Deysi Alicea MD LAB - BLOOD ORDERABLES Performing Organization Address City/State/ZIP Code Phon e Number [facility] [address] [place] [address] [facility] LABS documented in this encounter Visit Diagnoses Diagnosis 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 replaced by transplant -donor kidney transplant recipie nt Kidney replaced by transplant High risk medications (not anticoagulant s) long-term use Encounter for long-term (current) use of other medications correction (current) use of anticoagulant s Long-term (current) use of anticoagulant s Hypomagnesemia Disorders of magnesium metabolism Orthostatic hypotension documented in this encounter Care Teams Electro Mechanic Relationship Specialty Start Date End Date Momo Forbes PCP - General Family Practice 01/02/14 [facility] [address] [place] [address] Ingrid Santana, RN Registered Nurse Transplant 02/10/12 documented as of this encounter
--- OUTSIDE RECORDS SUMMARY | 2022-05-21 13:25 | XMS_ITS | Encounter Summary ---
:1950 Author Organization [place] Address [address] [place] [address]. [place] [address] Care Team Providers Name Role Phone Ingrid Santana RN Unavailable Unavailable Momo Forbes Primary Care Provider Reason for Visit Reason Onset Date Comments Refill Request 02/11/2014 Encounter Details Date Type Department Care Team Description 02/11/2014 Refill Nephrology Isa Ly RN Refill Request 2nd Floor, Clinic [address] [place] [phone] Social History Tobacco Use Types Packs/Day [...] transplant documented in this encounter Care Teams Iap Displays Analyst Relationship Specialty Start Date End Date Momo Forbes PCP - General Family Practice 01/02/14 [facility] [address] [place] [address] Ingrid Santana RN Registered Nurse Transplant 6/21/12 2/10/ 16 documented as of this encounter
--- OUTSIDE RECORDS SUMMARY | 2022-05-21 13:25 | XMS_ITS | Encounter Summary ---
:1950 Author Organization [place] Address [address] [place] [address]. [place] [address] Care Team Providers Name Role Phone Ingrid Santana RN Unavailable Unavailable Momo Forbes Primary Care Provider Encounter Details Date Type Department Care Team Description 02/18/2014 Orders Only Nephrology Shiva Kahn RN -donor kidney transplant recipie nt (Primary Dx); 2nd Floor, Clinic 2A [facility] Kidney replaced by transplant; Tommy Ruiz[address] S/P kidney transplant Building [address] [place] [id number] [phone] Social History Tobacco Use Types Packs/Day Years [...] transplant documented in this encounter Care Teams Used Car Lot Attendant Relationship Specialty Start Date End Date Momo Forbes PCP - General Family Practice 01/02/14 [facility] [address] [place] [address] Ingrid Santana, RN Registered Nurse Transplant 02/10/12 documented as of this encounter
--- OUTSIDE RECORDS SUMMARY | 2022-05-21 13:25 | XMS_ITS | Encounter Summary ---
:1950 Author Organization [place] Address [address] [place] [address]. [place] [address] Care Team Providers Name Role Phone Ingrid Santana RN Unavailable Unavailable Momo Forbes Primary Care Provider Encounter Details Date Type Department Care Team Description 03/01/2014 Orders Only Nephrology Shiva Kahn RN -donor kidney 2nd Floor, Clinic 2A [facility] transplant recipient Tommy Ruizteen [address] [place] [address] [place] [id number] [phone] Social History Tobacco Use Types Packs/Day Years [...] documented in this encounter Care Teams Senior Technologist Relationship Specialty Start Date End Date Momo Forbes PCP - General Family Practice 01/02/14 [facility] [address] [place] [address] Ingrid Santana, RN Registered Nurse Transplant 02/10/12 documented as of this encounter
--- OUTSIDE RECORDS SUMMARY | 2022-05-21 13:25 | XMS_ITS | Encounter Summary ---
:1950 Author Organization [place] Address [facility] [place] [address] Care Team Providers Name Role Phone Ingrid Santana RN Unavailable Unavailable Momo Forbes Primary Care Provider Reason for Visit Reason Comments Eval/Assessment LBA Encounter Details Date Type Department Care Team Description 02/14/2014 Office Visit Specialty Infusion Edward, Naim S, Kidney r eplaced by transplant (Primary Dx); and Procedure Center Immunosuppression (H); Sanders-Akila [facility] Hyperka lemia; [facility] Hypophosphatemia; 2nd Floor [address] Atrial fibrillation (H); [address] [place], [place] Anemia; [place] [address] HTN (hypertension) [place], [place] [phone] [address] (Work) [phone] Social History Tobacco Use Types Packs/Day Years [...] Years of Education: 14 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
--- OUTSIDE RECORDS SUMMARY | 2022-05-21 13:25 | XMS_ITS | Encounter Summary ---
:1950 Author Organization [place] Address [facility] [place] [address] Care Team Providers Name Role Phone Ingrid Santana RN Unavailable Unavailable Momo Forbes Primary Care Provider Reason for Visit Reason Comments Eval/Assessment LBA Encounter Details Date Type Department Care Team Description 02/11/2014 Office Visit Specialty Infusion Kaitlynn Leon, Complica tion of transplanted kidney (Primary Dx); and Procedure Center Anemia; Sanders-Wangfelisa [facility] HTN (hy pertension); [facility] Immunosuppression (H); 2nd Floor [address] Hypophosphatemia 6 [facility] [phone] [place], [place] [phone] [address] (Work) [phone] Social History Tobacco Use Types Packs/Day Years [...] Years of Education: 14 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 Discharge: 02/08/2014 Using Medcard: Yes Med review: Went over all meds and dosing with patient and Ttee. Went over Prograf and Cellcept side effects. Medication questions/concerns: Patient requested that we transfer 4 rx's (to profile) from local pharmacy to us here. Pt wants us to get Zofran filled for worm picker 02/12- new dose of 2 Q6-8H PRN. Using medbox: Yes Viewed DVD: Didn't bring up Pain: #2-3, feels good, rarely using Oxycodone Other Concerns: none No further questions for this pharmacist. Yi Londono [facility] [phone] documented in this encounter Plan of Treatment [...] ORDERABLES (ABNORMAL) INR (02/11/2014 9:30 AM CDT) athologist Signature INR 2.28 (H) 0.86 - 1.14 [facility] LABS Specimen Anatomical Collection Method Collection Time Receive d Time (Source) Location / / Volume Laterality 02/11/2014 9:30 AM 4 9:41 CDT AM CDT Kaitlynn Leon MD LAB - BLOOD ORDERABLES Performing Organization Address City/State/ZIP Code Phon e Number [phone] [place] [address] LABS documented in this encounter Visit Diagnoses Diagnosis Complication of transplanted kidney - Pr imary Complications of transplanted kidney Anemia Anemia, unspecified HTN (hypertension) Unspecified essential hypertension Immunosuppression (H) Unspecified disorder of immune mechanism Hypophosphatemia Disorders of phosphorus metabolism documented in this encounter Care Teams [place] Lieutenant Relationship Specialty Start Date End Date Momo Forbes PCP - General Family Practice 01/02/14 [facility] [address] [place] [address] Ingrid Santana, RN Registered Nurse Transplant 02/10/12 documented as of this encounter
--- OUTSIDE RECORDS SUMMARY | 2022-05-21 13:25 | XMS_ITS | Encounter Summary ---
:1950 Author Organization Mobile Address [facility] [place] [address] Care Team Providers Name Role Phone Ingrid Santana RN Unavailable Unavailable Momo Forbes Primary Care Provider Reason for Visit Reason Onset Date Comments Pre Visit Planning - Done 03/08/2014 Appointment on 03/11/2014 Encounter Details Date Type Department Care Team Description 03/08/2014 Telephone Nephrology Alexandria Caldera Pre Visit Planning - 2nd Floor, Clinic 2A HAND DRAWER IN HELPER Done (Appointment on Sanders Akila 03/11/20 14) [address] [phone] Social History Tobacco Use Types Packs/Day Years [...] bring list of medications. Toldpatient to call [phone] if any questions or needs to reschedule. Alexandria Caldera CMA documented in this encounter Plan of Treatment Not on filedocumented as of this encounter Visit Diagnoses Not on filedocumented in this encounter Care Teams Printing Roller Polisher Relationship Specialty Start Date End Date Momo Forbes PCP - General Family Practice 01/02/14 [facility] [address] [place] [address] Ingrid Santana, RN Registered Nurse Transplant 02/10/12 documented as of this encounter
--- OUTSIDE RECORDS SUMMARY | 2022-05-21 13:25 | XMS_ITS | Encounter Summary ---
:1950 Author Organization [place] Address [facility] [place] [address] Care Team Providers Name Role Phone Ingrid Santana RN Unavailable Unavailable Momo Forbes Primary Care Provider Reason for Referral CV Cardio consult - Closed Specialty Diagnoses / Procedures Referred By Contact Refer red To Contact Diagnoses Atrial fibrillation (H) Kaitlynn Leon MD [facility] [place] [address] [place] [address] Fax: Referral ID Status Reason Start Date Expiration Date Visits Requ ested Visits Authorized [id number] Closed 02/12/2014 08/11/2014 1 1 Reason for Visit Reason Comments RECHECK Encounter Details Date Type Department Care Team Description 02/12/2014 Office Visit Specialty Infusion Kaitlynn Leon, S/P liborio olivo transplant (Primary Dx); and Procedure Center Atrial fibrillation (H); Sanders-Wangensteen [facility] Hypopho sphatemia; [facility] Nausea; 2nd Floor [address] Immunosuppression (H) [address] [place] [address] [place], [place] [phone] (Work) [phone] Social History Tobacco Use Types Packs/Day Years [...] Guthrie Thank you for choosing [facility] ([facility]) for your transplant cares. The following information is a summary of our appointment as well as important reminders. Please make sure your phone is available today because I will call to update you with your anti-rejection drug levels and possibly make changes to your anti- rejection dosages. Additional information: -Decrease your coumadin dose to 5 mg every evening -Please return to [facility] on for Labs & assessment -Call us or Leandro Kahn with any questions. -Your Home Care Nurse should begin visits on TuesdayFebruary 14. If you do not hear from them by Tuesday morning, try to reach them at [phone]. We look forward in seeing you on your next appointment here at [facility]. Please don???t hesitate to callus at [phone] to reschedule any of your appointments or to speak with one of the [facility] registered nurses. It was a pleasure taking care of you today. 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
--- OUTSIDE RECORDS SUMMARY | 2022-05-21 13:25 | XMS_ITS | Encounter Summary ---
:1950 Author Organization [place] Address [facility]0 [facility] [place] [address] Care Team Providers Name Role Phone Ingrid Santana RN Unavailable Unavailable Momo Forbes Primary Care Provider Encounter Details Date Type Department Care Team Description 02/18/2014 Orders Only The Transplant Deysi Bursn, Kidney replaced by transplan t; 2nd Floor, Clinic 2A S/P kidney transplant [facility] [address] [facility] [address] [place] [address] [address] [place], [place] [phone] [place] [address] (Wo rk) [id number] [phone] Social History Tobacco Use Types Packs/Day Years [...] Signature Magnesium 1.5 (L) 1.6 - 2.3 [facility] mg/dL [place] [facility] Specimen Anatomical Collection Method Collection Time Receive d Time (Source) Location / / Volume Laterality Blood specimen 02/18/2014 8:56 AM 014 8:57 (specimen) CDT AM CDT Kaitlynn Leon MD LAB - BLOOD ORDERABLES Performing Organization Address City/State/ZIP Code Phon e Number [address] LABS (ABNORMAL) Phosphorus (02/18/2014 8:56 AM CDT) athologist Signature Phosphorus 1.9 (L) 2.5 - 4.5 [facility] mg/dL [place] [facility] Specimen Anatomical Collection Method Collection Time Receive d Time (Source) Location / / Volume Laterality Blood specimen 02/18/2014 8:56 AM 014 8:57 (specimen) CDT AM CDT Kaitlynn Leon MD LAB - BLOOD ORDERABLES Performing Organization Address City/State/ZIP Code Phon e Number [address] LABS Tacrolimus level (02/18/2014 8:56 AM CDT) [facility] gist Method Time Signature Tacrolimus Last 06/24/14 [facility] Dose 1930 [facility] Tacrolimus 14.1 5.0 - [facility] Level 15.0 ug/L [facility] Comment: Tacrolimus Reference Range [...] e Number [facility] [address] [place] [address] [facility] LABS (ABNORMAL) CBC with platelets differential (02/18/2014 8:56 AM CDT) [facility] gist Method Time Signature WBC 6.3 4.0 - [facility] 11.0 [facility] 10e9/L [place] [facility] RBC Count 2.59 (L) 4.4 - 5.9 [facility] 10e12/L [facility]S Hemoglobin 7.8 (L) 13.3 - [facility] 17.7 g/dL [facility] LABS Hematocrit 23.7 (L) 40.0 - [facility] 53.0 % [facility] LABS MCV 92 78 - 100 [facility] fl [facility] MCH 30.1 26.5 - [facility] 33.0 pg [facility]S MCHC 32.9 31.5 - [facility] 36.5 g/dL [facility]S RDW 14.7 10.0 - [facility] 15.0 % [facility] Platelet Count 140 (L) 150 - 450 [facility] 10e9/L [facility]S Diff Method Automated [facility] Method [facility] LABS % Neutrophils 84.7 % [facility] LABS % Lymphocytes 3.8 % [facility] LABS % Monocytes 6.0 % [facility] LABS % Eosinophils 4.8 % [facility] LABS % Basophils 0.5 % [facility] % Immature 0.2 % [facility] Granulocytes [facility] Absolute 5.3 1.6 - 8.3 [facility] Neutrophil 10e9/L [facility] Absolute 0.2 (L) 0.8 - 5.3 [facility] Lymphocytes 10e9/L [facility] Absolute 0.4 0.0 - 1.3 [facility] Monocytes 10e9/L [facility] Absolute 0.3 0.0 - 0.7 [facility] Eosinophils 10e9/L [facility] Absolute 0.0 0.0 - 0.2 [facility] Basophils 10e9/L [facility] Abs Immature 0.0 0 - 0.4 [facility] Granulocytes 10e9/L [facility] Specimen Anatomical Collection Method Collection Time Receive d Time (Source) Location / / Volume Laterality Blood specimen 02/18/2014 8:56 AM 014 8:57 (specimen) CDT AM CDT Kaitlynn Leon MD LAB - BLOOD ORDERABLES Performing Organization Address City/State/ZIP Code Phon e Number [facility] [address] [place] [address] [facility] LABS (ABNORMAL) Basic metabolic panel (02/18/2014 8:56 AM CDT) Patholo gist Method Time Signature Sodium 141 133 - 144 [facility] mmol/L [facility] Potassium 5.2 3.4 - 5.3 [facility] mmol/L [facility] Chloride 112 (H) 94 - 109 [facility] mmol/L [facility] Carbon Dioxide 18 (L) 20 - 32 [facility] mmol/L [facility] Anion Gap 11 6 - 17 [facility] mmol/L [facility] Glucose 185 (H) 60 - 99 [facility] mg/dL [facility] Urea Nitrogen 24 7 - 30 [facility] mg/dL [facility]S Creatinine 1.81 (H) 0.66 - [facility] 1.25 mg/dL [facility]S GFR Estimate 38 (L) >60 [facility] mL/min/1.7 [place] [facility] LABS GFR Estimate If 46 (L) >60 [facility] Black mL/min/1.[address] LABS Calcium 9.4 8.5 - 10.4 [facility] mg/dL [facility] Specimen Anatomical Collection Method Collection Time Receive d Time (Source) Location / / Volume Laterality Blood specimen 02/18/2014 8:56 AM 014 8:57 (specimen) CDT AM CDT Kaitlynn Leon MD LAB - BLOOD ORDERABLES Performing Organization Address City/[facility] Code Phon e Number [address] LABS (ABNORMAL) INR (02/18/2014 8:56 AM CDT) P athologist Signature INR 2.13 (H) 0.86 - 1.14 [facility] LABS Specimen Anatomical Collection Method Collection Time Receive d Time (Source) Location / / Volume Laterality Blood specimen 02/18/2014 8:56 AM 014 8:57 (specimen) CDT AM CDT Kaitlynn Leon MD LAB - BLOOD ORDERABLES Performing Organization Address City/[facility] Code Phon e Number [address] LABS documented in this encounter Visit Diagnoses Diagnosis Kidney replaced by transplant S/P kidney transplant Kidney replaced by transplant documented in this encounter Care Teams Leaflet Distributor Relationship Specialty Start Date End Date Momo Forbes PCP - General Family Practice 01/02/14 [facility] [address] [place] [address] Ingrid Santana, RN Registered Nurse Transplant 02/10/12 documented as of this encounter
--- OUTSIDE RECORDS SUMMARY | 2022-05-21 13:25 | XMS_ITS | Encounter Summary ---
:1950 Author Organization [place] Address [facility] [place] [address] Care Team Providers Name Role Phone Ingrid Santana RN Unavailable Unavailable Momo Forbes Primary Care Provider Reason for Visit Reason Comments Eval/Assessment LBA Encounter Details Date Type Department Care Team Description 02/11/2014 Infusion Therapy Specialty Infusion Finger, Migel Mac y replaced by Visit and Procedure MD Nathan transplant (Primary Center [address] [place] [address] Dx) [facility] [address] [facility] 2nd Floor [address] [phone] [place], [place] (Work) [phone] Social History Tobacco Use [...] Dear Diego Guthrie Thank you for choosing [facility] ([facility]) for your transplant cares. The following [...] regarding the result at your appointment in [facility] tomorrow. We look forward in seeing you on your next appointment here at [facility]. Please don???t hesitate to callus at [phone] to reschedule any of your appointments or to speak with one of the [facility] registered nurses. It was a pleasure taking care of you today. Sincerely, Gladis Olvera, BOGDAN [facility] [address] [place] [address] documented in this encounter Progress Notes Gladis Olvera, RN - 02/11/2014 8:43 AM CDT Diego Guthrie came to [facility] today for a lab and assess following a Kidney transplant on 02/02/14. Discharge date: 02/08/14 flight operation coordinator: Leandro Kahn Phone number patient can be reached at: [phone] Physical Assessment: See physical assessment located under Document Flowsheets. Incision site: Dry dressing with modesta. Dressing changed. Small amt oozing, Small amt ecchymosis. Pt instructed on signs/symptoms of infection. Some swelling under incision, pt has known hematoma andwill have a renal ultrasound today at 2pm. Lines: MARGARET drain to bulb suction, serosanguinous drainage. 20 ml at [facility] appointment today. Gibbs: n/a Urine clarity: clear per patient report Hydration: discussed drinking 2-3 L daily Nutrition: Pt states appetite is improving Last BM: 02/10/14 evening Pain: 2 at rest, 5 with activity. Pain adequately controlled with home medications Laboratory tests: Standard labs drawn. Plan of care for today: Pt presents to [facility] for Labs & Assessment following Kid Txp on 02/02/14. Pt's creatinine up to 1.97 today, but ok per Dr. Leon considering the complications with transplant. Hgb 7.4 and pt c/o slight fatigue. Discussed with Dr. Leon and will hold off on a transfusion for now, but will continue to monitor hgb at [facility] appointments over the next 2 days. INR 2.23, EKG obtained and pt found to be in Normal Sinus Rhythm. Pt will remain on coumadin for now and will follow up with a ceramic design engineer near [facility]. Continue daily INRs while pt is coming to [facility]. Pt's MARGARET continues to drain more [...] Discharge Plan Pt will follow up with [facility] tomorrow. 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/Environmental Services Aide verbalized understanding, all questions answered: YES Discharged [...] Results Tacrolimus level (02/11/2014 7:40 AM CDT) [facility] gist Method Time Signature Tacrolimus Last 02/10/14 [facility] Dose 2000 [facility] LABS Tacrolimus 12.2 5.0 - [facility] Level 15.0 ug/L [facility] LABS Comment: Tacrolimus Reference Range [...] Code Phon e Number [facility] [address] [place], [place] [id number] [place] [address] LABS (ABNORMAL) CBC with platelets differential (02/11/2014 7:40 AM CDT) [facility] gist Method Time Signature WBC 4.4 4.0 - [facility] 11.0 [facility] 10e9/L [place] [facility] RBC Count 2.39 (L) 4.4 - 5.9 [facility] 10e12/L [facility] LABS Hemoglobin 7.4 (L) 13.3 - [facility] 17.7 g/dL [facility] LABS Hematocrit 22.1 (L) 40.0 - [facility] 53.0 % [facility] LABS MCV 93 78 - 100 [facility] fl [facility] LABS MCH 31.0 26.5 - [facility] 33.0 pg [facility] LABS MCHC 33.5 31.5 - [facility] 36.5 g/dL [facility] LABS RDW 14.7 10.0 - [facility] 15.0 % [facility] LABS Platelet Count 83 (L) 150 - 450 [facility] 10e9/L [facility] LABS Diff Method Automated [facility] Method [facility] LABS % Neutrophils 80.4 % [facility] LABS % Lymphocytes 8.2 % [facility] LABS % Monocytes 5.2 % [facility] LABS % Eosinophils 5.7 % [facility] LABS % Basophils 0.0 % [facility] LABS % Immature 0.5 % [facility] Granulocytes [facility] LABS Absolute 3.5 1.6 - 8.3 [facility] Neutrophil 10e9/L [facility] Absolute 0.4 (L) 0.8 - 5.3 [facility] Lymphocytes 10e9/L [facility] Absolute 0.2 0.0 - 1.3 [facility] Monocytes 10e9/L [facility] Absolute 0.3 0.0 - 0.7 [facility] Eosinophils 10e9/L [facility] Absolute 0.0 0.0 - 0.2 [facility] Basophils 10e9/L [facility] Abs Immature 0.0 0 - 0.4 [facility] Granulocytes 10e9/L [place] [facility] Specimen Anatomical Collection Method Collection Time Receive d Time (Source) Location / / Volume Laterality Blood specimen 02/11/2014 7:40 AM 014 7:41 (specimen) CDT AM CDT Kaitlynn Leon MD LAB - BLOOD ORDERABLES Performing Organization Address City/[facility]/ZIP Code Phon e Number [facility] [address] LABS (ABNORMAL) Phosphorus (02/11/2014 7:40 AM CDT) P athologist Signature Phosphorus 1.9 (L) 2.5 - 4.5 [facility] mg/dL [place] [facility] Specimen Anatomical Collection Method Collection Time Receive d Time (Source) Location / / Volume Laterality Blood specimen 02/11/2014 7:40 AM 014 7:41 (specimen) CDT AM CDT Kaitlynn Leon MD LAB - BLOOD ORDERABLES Performing Organization Address City/State/ZIP Code Phon e Number [facility] [address] LABS Magnesium (02/11/2014 7:40 AM CDT) P athologist Signature Magnesium 1.9 1.6 - 2.3 [facility] mg/dL CAMPUS LABS Specimen Anatomical Collection Method Collection Time Receive d Time (Source) Location / / Volume Laterality Blood specimen 02/11/2014 7:40 AM 014 7:41 (specimen) CDT AM CDT Kaitlynn Leon MD LAB - BLOOD ORDERABLES Performing Organization Address City/State/ZIP Code Phon e Number [facility] [address] [place], [place] [id number] [place] [address] LABS (ABNORMAL) Basic metabolic panel (02/11/2014 7:40 AM CDT) [facility] gist Method Time Signature Sodium 142 133 - 144 [facility] mmol/L [facility] LABS Potassium 5.4 (H) 3.4 - 5.3 [facility] mmol/L [facility] [place] [facility] Chloride 113 (H) 94 - 109 [facility] mmol/L [facility] LABS Carbon Dioxide 22 20 - 32 [facility] mmol/L [facility] LABS Anion Gap 8 6 - 17 [facility] mmol/L [facility] LABS Glucose 155 (H) 60 - 99 [facility] mg/dL [facility] LABS Urea Nitrogen 31 (H) 7 - 30 [facility] mg/dL [facility] LABS Creatinine 1.97 (H) 0.66 - [facility] 1.25 mg/dL [facility] LABS GFR Estimate 35 (L) >60 [facility] mL/min/1.7 [place] [facility] LABS GFR Estimate If 42 (L) >60 [facility] Black mL/min/1.7 [place] [facility]2 [facility]AMP[facility] LABS Calcium 9.1 8.5 - 10.4 [facility] mg/dL [facility] LABS Specimen Anatomical Collection Method Collection Time Receive d Time (Source) Location / / Volume Laterality Blood specimen 02/11/2014 7:40 AM 014 7:41 (specimen) CDT AM CDT Kaitlynn Leon MD LAB - BLOOD ORDERABLES Performing Organization Address City/State/ZIP Code Phon e Number [id number] [place] [address] [facility] LABS documented in this encounter Visit Diagnoses Diagnosis Kidney replaced by transplant - Primary documented in this encounter Care Teams Borderer Relationship Specialty Start Date End Date Momo Forbes PCP - General Family Practice 01/02/14 [facility] [address] [place] [address] Ingrid Santana, RN Registered Nurse Transplant 02/10/12 documented as of this encounter
--- OUTSIDE RECORDS SUMMARY | 2022-05-21 13:25 | XMS_ITS | Encounter Summary ---
:1950 Author Organization [place] Address [address] [place] [address] Care Team Providers Name Role Phone Ingrid Santana RN Unavailable Unavailable Momo Forbes Primary Care Provider Reason for Visit Auth/Cert - Closed Specialty Diagnoses / Procedures Referred By Contact Refer red To Contact Surgery Diagnoses Status Post Kidney Transplant Uu Periop Procedures COMBINED CYSTOSCOPY, REMOVE STENT(S) [address] [place] [address] Phone: Fax: Referral ID Status Reason Start Date Expiration Date Visits Requ ested Visits Authorized [id number] Closed 1 1 Encounter Details Date Type Department Care Team Description 03/11/2014 Hospital Encounter [facility] Migel Merchant, Same Day Surgery East [address] 500 [facility] [address] [place] [address] [place] [address] (Wo rk) Social History Tobacco Use Types [...] evening mycophenolate Take 4 capsules 240 capsule 02/08/201402/10 (CELLCEPT-BRAND NAME) 250 (1,000 mg) by [...] Atrial mg) by mouth daily fibrillation (H) Cholecalciferol (VITAMIN D 5000 1 tab three [...] every morning and 1 mg every evening) tacrolimus (PROGRAF BRAND) Take 1 capsule 30 capsule 6 03/0103/13/2014 0.5 MG capsuleIndications: (0.5 mg) by mouth -donor kidney every morning transplant recipient (total dose 1.5 mg every morning and 1 mg every evening) documented as of this encounter Nursing Notes [...] 8:46 CDT AM CDT Migel Merchant MD [facility] POCT Performing Organization Address City/State/ZIP Code Phon e Number [facility] POINT OF CARE TEST, GLUCOSE POINT OF CARE TEST, GLUCOSE documented in this encounter Visit Diagnoses Not on filedocumented in this encounter Active and Recently Administered Medications Care Teams Clicker Operator Relationship Specialty Start Date End Date Momo Forbes PCP - General Family Practice 01/02/14 [facility] [address] [place] [address] Ingrid Santana, RN Registered Nurse Transplant 02/10/12 documented as of this encounter
--- OUTSIDE RECORDS SUMMARY | 2022-05-21 13:25 | XMS_ITS | Encounter Summary ---
:[address] Address [facility] [place] [address] Care Team Providers Name Role Phone Ingrid Santana RN Unavailable Unavailable Momo Forbes Primary Care Provider Reason for Visit Reason Onset Date Comments Transplant 03/08/2014 Elevated tacrolimus level Encounter Details Date Type Department Care Team Description 03/08/2014 Telephone Nephrology Jeff Giordano (Elevated 2nd Floor, Clinic 2A Almita Palomino RN tacrolimus level) Tommy Wilburn [address] [phone] Social History Tobacco Use Types Packs/Day Years [...] repeat the level. Leonor Giordano R.N. - [phone] documented in this encounter Plan of Treatment Not on filedocumented as of this encounter Visit Diagnoses Not on filedocumented in this encounter Care Teams Forestry Technical Officer Relationship Specialty Start Date End Date Momo Forbes PCP - General Family Practice 01/02/14 [facility] [address] [place] [address] Ingrid Santana, RN Registered Nurse Transplant 02/10/12 documented as of this encounter
--- OUTSIDE RECORDS SUMMARY | 2022-05-21 13:25 | XMS_ITS | Encounter Summary ---
:1950 Author Organization [place] Address [address] [place] [address]. [place] [address] Care Team Providers Name Role Phone Ingrid [...] 12-lead, tracing only (02/18/2014 9:53 AM CDT) [facility] gist Method Time Signature Interpretation ECG [...] on filedocumented in this encounter Care Teams Museum Preparator Relationship Specialty Start Date End Date Momo Forbes PCP - General Family Practice 01/02/14 [facility] [address] [place] [address] Ingrid Santana, RN Registered Nurse Transplant 02/10/12 documented as of this encounter
--- OUTSIDE RECORDS SUMMARY | 2022-05-21 13:26 | XMS_ITS | Encounter Summary ---
:1950 Author Organization [place] Address [facility] [address] Care Team Providers Name Role Phone Ingrid Santana RN Unavailable Unavailable Momo Forbes Primary Care Provider Reason for Visit Reason Comments Eval/Assessment s/p kidney transplant 8days ago Encounter Details Date Type Department Care Team Description 02/10/2014 Infusion Therapy Specialty Infusion Finger, Migel Mac y replaced by Visit and Procedure MD Nathan transplant (Primary Center [address] [place] [address] Dx) [facility] [address] [phone] [place], [place] (Work) [phone] Social History Tobacco Use [...] 10:40 AM CDT Diego Guthrie came to [facility] today for a lab and assess 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 Discharge date: 02/08/14 corporate safety coordinator: Leandro Kahn RN Phone number patient can be reached at: [phone] (girlfriend's cell) Physical Assessment: See physical assessment located under Document Flowsheets. Incision site: stapled, leaking tiny amount clear pink/pale yellow fluid from mid incision (1.5inch area on dressing from 3hours ago) covered with ABD Lines: MARGARET rlq; 30cc out last tamara; 10cc out overnite;; lite pink clear fluid Gibbs: na states is not having voiding difficulty Urine clarity: not asked Hydration: states he [id number] water yesterday but does not like that [...] Pt will follow up with [facility] lab/assess in am 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/Trial Management Associate verbalized understanding, all questions answered: YES [...] Results Tacrolimus level (02/10/2014 8:37 AM CDT) [facility] Method Time Signature Tacrolimus Not Provided [facility] Last Dose [facility] LABS Tacrolimus 6.8 5.0 - [facility] Level 15.0 ug/L [facility] [...] Phon e Number [facility] [address] [place], [place] [id number] [place] [address] LABS (ABNORMAL) CBC with platelets differential (02/10/2014 8:37 AM CDT) Component Value Ref Test Analysis Performed At [facility] gist Range Method Time Signature WBC 5.5 4.0 - [facility] 11.0 [place] LABS 10e9/L RBC Count 2.53 (L) 4.4 - [facility] 5.9 CAMPUS LABS 10e12/L Hemoglobin 7.9 (L) 13.3 - [facility] 17.7 CAMPUS LABS g/dL Hematocrit 23.2 (L) 40.0 - [facility] 53.0 % CAMPUS LABS MCV 92 78 - 100 [facility] fl CAMPUS LABS MCH 31.2 26.5 - [facility] 33.0 pg CAMPUS LABS MCHC 34.1 31.5 - [facility] 36.5 CAMPUS LABS g/dL RDW 14.5 10.0 - [facility] 15.0 % CAMPUS LABS Platelet Count 89 (L) 150 - [facility] 450 CAMPUS LABS 10e9/L Diff Method [...] Code Phon e Number [id number] DIFFERENTIAL [facility] LABS (ABNORMAL) Phosphorus (02/10/2014 8:37 AM CDT) P athologist Signature Phosphorus 1.9 (L) 2.5 - 4.5 [facility] mg/dL CAMPUS LABS Specimen Anatomical Collection Method Collection Time Receive d Time (Source) Location / / Volume Laterality Blood specimen 02/10/2014 8:37 AM 014 8:38 (specimen) CDT AM CDT Migel Merchant MD LAB - BLOOD ORDERABLES Performing Organization Address City/[facility]/ZIP Code Phon e Number [facility] [address] [place], [place] [id number] [place] [address] LABS Magnesium (02/10/2014 8:37 AM CDT) P athologist Signature Magnesium 2.0 1.6 - 2.3 [facility] UNIVERSITY mg/dL CAMPUS LABS Specimen Anatomical Collection Method Collection Time Receive d Time (Source) Location / / Volume Laterality Blood specimen 02/10/2014 8:37 AM 014 8:38 (specimen) CDT AM CDT Migel Merchant MD LAB - BLOOD ORDERABLES Performing Organization Address City/[facility] Code Phon e Number [facility] [address] [place], [place] [id number] [place] [address] LABS (ABNORMAL) Basic metabolic panel (02/10/2014 8:37 AM CDT) Patholo gist Method Time Signature Sodium 144 133 - 144 [facility] mmol/L [facility] LABS Potassium 4.8 3.4 - 5.3 [facility] mmol/L [facility] LABS Chloride 111 (H) 94 - 109 [facility] mmol/L [facility] LABS Carbon Dioxide 22 20 - 32 [facility] mmol/L [facility] LABS Anion Gap 10 6 - 17 [facility] mmol/L [facility] LABS Glucose 128 (H) 60 - 99 [facility] mg/dL [facility] LABS Urea Nitrogen 34 (H) 7 - 30 [facility] mg/dL [facility] LABS Creatinine 1.80 (H) 0.66 - [facility] 1.25 mg/dL [facility] LABS GFR Estimate 38 (L) >60 [facility] mL/min/1.7 [place] m2 CAMPUS LABS GFR Estimate If 46 (L) >60 [facility] Black mL/min/1.7 [place] m2 CAMPUS LABS Calcium 9.1 8.5 - 10.4 [facility] mg/dL [facility] LABS Specimen Anatomical Collection Method Collection Time Receive d Time (Source) Location / / Volume Laterality Blood specimen 02/10/2014 8:37 AM 014 8:38 (specimen) CDT AM CDT Migel Merchant MD LAB - BLOOD ORDERABLES Performing Organization Address City/State/ZIP Code Phon e Number [facility] [address] [place] [address] [facility] LABS documented in this encounter Visit Diagnoses Diagnosis Kidney replaced by transplant - Primary documented in this encounter Care Teams Flatwork Folder Relationship Specialty Start Date End Date Momo Forbes PCP - General Family Practice 01/02/14 [facility] [address] [place] [address] Ingrid Santana, RN Registered Nurse Transplant 02/10/12 documented as of this encounter
--- OUTSIDE RECORDS SUMMARY | 2022-05-21 13:26 | XMS_ITS | Encounter Summary ---
:1950 Author Organization [place] Address [facility] [place] [address] Care Team Providers Name Role Phone Ingrid Santana RN Unavailable Unavailable Momo Forbes Primary Care Provider Reason for Visit Reason Comments Eval/Assessment LBA Encounter Details Date Type Department Care Team Description 02/09/2014 Infusion Therapy Specialty Infusion Finger, Migel Mac y replaced by transplant (Primary Dx); Visit and Procedure MD Nathan [facility] [address] [place] [address] [phone] [place], [place] (Work) [phone] Social History Tobacco Use [...] Guthrie Thank you for choosing [facility] ([facility]) for your transplant cares. The following information [...] Bring Humulog Insulin Pen to your future [facility] appointments. 5) Return to [facility] tomorrow at 07:30 a.m We look forward in seeing you on your next appointment here at [facility]. Please don???t hesitate to callus at [phone] to reschedule any of your appointments or to speak with one of the [facility] registered nurses. It was a pleasure taking care of you today. Sincerely, MARC HERNANDEZ RN [facility] [address] [place] [address]. [place] [address] Coumadin Information: Keep Your Diet Steady Keep [...] 7:31 AM CDT Diego Guthrie came to [facility] today for a lab and assess following a Kidney transplant on 02/02/14. Discharge date: 02/08/14 coordinator volunteer services: Leandro Kahn Phone number patient can be reached at: [phone] Physical Assessment: See physical assessment located under [...] s/s insulin this morning/nor brought insulin to [facility] appt. I reviewed w/pt the need to monitor BG's QID and to bring Insulin to future [facility] appt's. Last BM: yesterday, loose, pt stopped stool softeners. Pain: Incisional pain rated a 5 , declines pain meds at this time. Laboratory tests: Standard labs drawn. Plan of care for today: 1) Labs/Nausea/Orthostatic BP/MARGARET output reviewed with Dr Hernandes, orders: Increase Zofran to 8mg every 6-8 hours, MARGARET to remain in another day, Administer 1L of NS today, d/c pt from [facility] post 1L NS, return to [facility] tomorrow for LBA, No change in Prograf [...] and Phone numbers to call with concenrs (coordinator volunteer services, [address] and [facility]) Patient verbalized understanding and all questions answered. Drug level: Prograf level today reviewed with Dr Hernandes who gave orders to no change in dose. INR of 1.59 also reviewed w/Dr Hernandes who gave orders to increase Coumadin to 7.5mg QD. Patient was updated with this information and verbalized understanding. Discharge Plan Pt will follow up with [facility] tomorrow at 0730. Bring Humulog Insulin Pen to [facility] today (pt did not bring to today's appt). 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 MACR HERNANDEZ RN documented in this encounter Plan [...] Signature INR 1.59 (H) 0.86 - 1.14 [facility] LABS Specimen Anatomical Collection Method Collection Time Receive d Time (Source) Location / / Volume Laterality Blood specimen 02/09/2014 8:30 AM 014 (specimen) CDT 11:07 AM CDT Migel Merchant MD LAB - BLOOD ORDERABLES Performing Organization Address City/State/ZIP Code Phon e Number [facility] [address] [place] [address] [facility] LABS Tacrolimus level (02/09/2014 7:40 AM CDT) [facility] gist Method Time Signature Tacrolimus Not Provided [facility] Last Dose [facility] LABS Tacrolimus 8.0 5.0 - [facility] Level 15.0 ug/L [facility] LABS Comment: Tacrolimus Reference [...] e Number [facility] [address] [place] [address] [facility] (ABNORMAL) CBC with platelets differential (02/09/2014 7:40 AM CDT) [facility] gist Method Time Signature WBC 5.8 4.0 - [facility] 11.0 UNIVERSITY 10e9/L CAMPUS LABS RBC Count 2.66 (L) 4.4 - 5.9 [facility] 10e12/L [facility] LABS Hemoglobin 8.2 (L) 13.3 - [facility] 17.7 g/dL [facility] LABS Hematocrit 24.4 (L) 40.0 - [facility] 53.0 % [facility] LABS MCV 92 78 - 100 [facility] fl [facility] LABS MCH 30.8 26.5 - [facility] 33.0 pg [facility] LABS MCHC 33.6 31.5 - [facility] 36.5 g/dL [facility] LABS RDW 14.6 10.0 - [facility] 15.0 % [facility] LABS Platelet Count 78 (L) 150 - 450 [facility] 10e9/L [facility] LABS Diff Method Automated [facility] Method [facility] LABS % Neutrophils 84.8 % [facility] LABS % Lymphocytes 5.2 % [facility] LABS % Monocytes 6.9 % [facility] LABS % Eosinophils 2.9 % [facility] % Basophils 0.0 % [facility] % Immature 0.2 % [facility] Granulocytes [facility] LABS Absolute 4.9 1.6 - 8.3 [facility] Neutrophil 10e9/L [facility] LABS Absolute 0.3 (L) 0.8 - 5.3 [facility] Lymphocytes 10e9/L [facility] LABS Absolute 0.4 0.0 - 1.3 [facility] Monocytes 10e9/L [facility] LABS Absolute 0.2 0.0 - 0.7 [facility] Eosinophils 10e9/L [facility] LABS Absolute 0.0 0.0 - 0.2 [facility] Basophils 10e9/L [facility] LABS Abs Immature 0.0 0 - 0.4 [facility] Granulocytes 10e9/L [facility] LABS Specimen Anatomical Collection Method Collection Time Receive d Time (Source) Location / / Volume Laterality Blood specimen 02/09/2014 7:40 AM 014 7:49 (specimen) CDT AM CDT Migel Merchant MD LAB - BLOOD ORDERABLES Performing Organization Address City/State/ZIP Code Phon e Number [facility] [address] [place], [place] [id number] [place] [address] LABS (ABNORMAL) Phosphorus (02/09/2014 7:40 AM CDT) athologist Signature Phosphorus 2.0 (L) 2.5 - 4.5 [facility] UNIVERSITY mg/dL CAMPUS LABS Specimen Anatomical Collection Method Collection Time Receive d Time (Source) Location / / Volume Laterality Blood specimen 02/09/2014 7:40 AM 014 7:49 (specimen) CDT AM CDT Migel Merchant MD LAB - BLOOD ORDERABLES Performing Organization Address City/[facility] Code Phon e Number [facility] [address] LABS Magnesium (02/09/2014 7:40 AM CDT) athologist Signature Magnesium 1.9 1.6 - 2.3 [facility] [place] mg/dL CAMPUS LABS Specimen Anatomical Collection Method Collection Time Receive d Time (Source) Location / / Volume Laterality Blood specimen 02/09/2014 7:40 AM 014 7:49 (specimen) CDT AM CDT Migel Merchant MD LAB - BLOOD ORDERABLES Performing Organization Address City/State/ZIP Code Phon e Number [facility] [address] LABS (ABNORMAL) Basic metabolic panel (02/09/2014 7:40 AM CDT) [facility] Method Time Signature Sodium 145 (H) 133 - 144 [facility] mmol/L [facility] LABS Potassium 4.5 3.4 - 5.3 [facility] mmol/L [facility] LABS Chloride 110 (H) 94 - 109 [facility] mmol/L [facility] LABS Carbon Dioxide 24 20 - 32 [facility] mmol/L [facility] LABS Anion Gap 10 6 - 17 [facility] mmol/L [facility] LABS Glucose 137 (H) 60 - 99 [facility] mg/dL [facility] LABS Urea Nitrogen 48 (H) 7 - 30 [facility] mg/dL [facility] LABS Creatinine 2.02 (H) 0.66 - [facility] 1.25 mg/dL [facility] LABS GFR Estimate 34 (L) >60 [facility] mL/min/1.7 [place] m2 CAMPUS LABS GFR Estimate If 41 (L) >60 [facility] Black mL/min/1.7 [place] m2 CAMPUS LABS Calcium 9.2 8.5 - 10.4 [facility] mg/dL [facility] LABS Specimen Anatomical Collection Method Collection Time Receive d Time (Source) Location / / Volume Laterality Blood specimen 02/09/2014 7:40 AM 014 7:49 (specimen) CDT AM CDT Migel Merchant MD LAB - BLOOD ORDERABLES Performing Organization Address City/State/ZIP Code Phon e Number [facility] [address] [place] [address] [facility] LABS documented in this [...] dose documented in this encounter Care Teams Sueding Machine Operator Relationship Specialty Start Date End Date Momo Forbes PCP - General Family Practice 01/02/14 [facility] [address] [place] [address] Ingrid Santana, RN Registered Nurse Transplant 02/10/12 documented as of this encounter
--- OUTSIDE RECORDS SUMMARY | 2022-05-21 13:27 | XMS_ITS | Encounter Summary ---
:1950 Author Organization [place] Address [facility] [place] [address] Care Team Providers Name Role Phone Ingrid Santana RN Unavailable Unavailable Momo Forbes Primary Care Provider Encounter Details Date Type Department Care Team Description 02/02/2014 Results Only LABORATORY RESULTS Migel Merchant MD [address] [facility] [address] [place] [address] (Wo rk) Social History Tobacco [...] T/B Crossmatch Auto (02/02/2014 6:51 PM CDT) [facility] Method Time Signature Crossmatch Donor:ELINOR GUTHRIE [...] Phon e Number [facility] Immunology/Histocompatabil [place], [place] [address] [facility] [address], Room 3-580 HISTOTRAC documented in this encounter Visit Diagnoses Not on filedocumented in this encounter Care Teams Signing Teacher Relationship Specialty Start Date End Date Momo Forbes PCP - General Family Practice 01/02/14 [facility] [address] [place] [address] Ingrid Santana, RN Registered Nurse Transplant 02/10/12 documented as of this encounter
--- OUTSIDE RECORDS SUMMARY | 2022-05-21 13:27 | XMS_ITS | Encounter Summary ---
:1950 Author Organization [place] Address [facility] [place] [address] Care Team Providers Name Role Phone Ingrid Santana RN Unavailable Unavailable Momo Forbes Primary Care Provider Encounter Details Date Type Department Care Team Description 02/02/2014 Results Only LABORATORY RESULTS Migel Merchant MD [address] [place] [address] [address] [place] [address] (Wo rk) Social History Tobacco [...] T/B Crossmatch Allo (02/02/2014 6:51 PM CDT) [facility] Method Time Signature Crossmatch Donor:[id number], ?Crossmatch Date:02/02/2014 HISTOTRAC Result (Note) Serum Date [...] Phon e Number [facility] Immunology/Histocompatabil [place], [place] [address] [facility] [address], Room [address] HISTOTRAC documented in this encounter Visit Diagnoses Not on filedocumented in this encounter Care Teams Assistant Coach Relationship Specialty Start Date End Date Momo Forbes PCP - General Family Practice 01/02/14 [facility] [address] [place] [address] Ingrid Santana, RN Registered Nurse Transplant 02/10/12 documented as of this encounter
--- OUTSIDE RECORDS SUMMARY | 2022-05-21 13:27 | XMS_ITS | Encounter Summary ---
:1950 Author Organization [facility] Address [address] [place] [address]. [place] [address] Care Team Providers Name Role Phone Ingrid Santana RN Unavailable Unavailable Momo Forbes Primary Care Provider Reason for Referral Home Health Therapies & Aides Specialty Diagnoses / Procedures Referred By Contact Refer red To Contact Adeline Diaz MD [place] [phone] Referral ID Status Reason Start Date Expiration Date Visits Requ ested Visits Authorized ome Health Therapies & Aides Specialty Diagnoses / Procedures Referred By Contact Gary phelps To Contact Adeline Diaz MD [place] [phone] Referral ID Status Reason Start Date Expiration Date Visits Requ ested Visits Authorized ome Health Therapies & Aides Specialty Diagnoses / Procedures Referred By Contact Gary phelps To Contact [facility] [address] [place], [place] [phone] Referral ID Status Reason Start Date Expiration Date Visits Requ ested Visits Authorized Reason for Visit Auth/Cert - Closed Specialty Diagnoses / Procedures Referred By Contact Gary phelps To Contact Med Surg Diagnoses end stage renal disease dialysis End stage renal failure on dialysis Renal Failure Uu U7a Procedures TRANSPLANT KIDNEY RECIPIENT DONOR [address] [place] [address] Phone: Referral ID Status Reason Start Date Expiration Date Visits Requ ested Visits Authorized [id number] Closed 02/04/2014 08/03/2014 1 1 Encounter Details Date Type Department Care Team Description 02/02/2014 - Hospital Encounter [facility] Susie Doyle MD [address] [place] [id number] S/P kidney transplant (Primary Dx); 02/08/2014 [facility] [address] Mathew Parker MD [address] [place] [address] Atrial fibrillation (H) Bank [address] [place] [address] Social History Tobacco Use Types [...] Physician Discharge Summary Patient ID: Diego Guthrie [id number] 63 year old 1950 Admit date: 02/02/2014 [...] Take 1 tablet by mouth daily. B byohsku-H-iqtmm acid (NEPHROCAPS) 1 MG capsule Take 1 [...] in the Specialty [facility]fusion [facility] Center ([facility]) which is located on the second floor of the [facility] next to the Transplant Clinic. [...] of these appointments you will meetwith a base draw operator and meet your precision farming coordinator. Your nurse will also be in communication with your surgeon and base draw operator as needed. The direct number to the [facility]fusion [facility] Procedure Center is [phone]. In the [facility] [...] This will be located in [facility] transplant surgery clinic on the second floor.Your transplant surgeon is: Dr. Merchant. You have a ureteral stent in place which needs to be removed in 4-6 weeks. If a casino manager does not contact you for this, please contact your precision farming coordinator. If you have modesta in place, they will be removed in 3 weeks after operation. Notify your coordinator if you have pain over your kidney, fever greater than 101.5F, or decreased urine output. Notify your coordinator immediately if you are ever unable to take your immunosuppressive medications for any reason. 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 High protein [...] >2. He can be seen by any foundry worker in the outpatient setting for coordination. Continue metoprolol 25 po bid until he is r e-evaluated. We did attempt inpatient REFUGIO guided cardioversion, but the patient developed significant bleeding while on heparin. José Miguel Alvarez M.D. Seo Strategist Joseph Quintana MD - 02/08/2014 12:35 PM [...] Dr. Quintana. Sina Robison MD Nephrology Fellow [phone] Attestation: This patient has been seen and [...] Ramires RN - 02/07/2014 2:25 PM CDT Dramatic Arts Historian D: Diego Guthrie 63 year old male [...] find it. Pt does not care which [facility] agency will follow him--There are only 2 to choose from, so I chose the Local [facility] [phone]/ --I called and left a message with Estrella Fletcher and I fax'd his records tothem--pt will need start of care approx Thursday 02/15. Pt is new on warfarin and I called his PCP's office and they have INR nurses Tuesday-Tuesday their fax # is [phone] (when N visits are completed --pt will call main clinic # to schedule INR draws). 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 I verified his address and phone #(is his cell) on the facesheet. Pt has not met his OP adult care provider: Leandro Kahn, yet--I sent Laendro an in basket message today-with plan. A: possible d/c to home Tuesday P: see above-will follow and will call [facility] to confirm they [...] Dr. Quintana. Sina Robison MD Nephrology Fellow [phone] Attestation: This patient has been seen and [...] assistance Medical Decision Making: Medium Subsequent visit 24290 (moderate level decision making) PATO/Fellow/Resident Provider: Adeline [...] Rodriguez MD - 02/06/2014 4:25 PM CDT [facility] Cardiology Progress Note I have seen [...] Dr. Quintana. Sina Robison MD Nephrology Fellow [phone] Attestation: This patient has been seen and [...] Dr. Quintana. Sina Robison MD Nephrology Fellow [phone] Attestation: This patient has been seen and [...] REPLACEMENT ONLY ??? insulin (regular) Stopped (02/05/14 7037) Shiva Kahn RN - 02/05/2014 4:47 PM CDT TYPEWRITER TESTER NOTE I met with the patient and his yesterday at [facility] PCU-6B (telemetry unit) to discuss transition from inpatient to outpatient care following kidney translantation. 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 Joseph Rodriguez MD - 02/05/2014 11:16 AM CDT [facility] Cardiology Progress Note I have seen [...] plan for REFUGIO cardioversion tomorrow, NPO at [place] (orders placed) -- continue heparin and initiate [...] 02/02/2014. Pt lives alone in [place] though reports that his girlfriend in in the process of moving in with him. Pt girlfriend, Tete, will be present when pt returns home but she works time study observer. Pt was on dialysis for 2 1/2 years prior to transplant. Pt works independently but reports that he currently has no income coming in. Pt has primary insurancethrough Medicare and Secondary insurance through [employer]. Pt has no co-pays for his immunosuppressants and a high out of pocket cost for Valcyte, SW to look into grants for pt for Valcyte. I: Met with pt to introduce this telegraphic typewriter operator and explain sw role and services available [...] needs arise prior to discharge. CECY Kearns, EDUCATIONAL SIGN LANGUAGE INTERPRETER Indu Calixto MD - 02/05/2014 1:50 AM [...] Adds Type of Visit Initial PT Evaluation Data Developer Data Developer Present no Language German Living Environment (R) Lives With alone Living Arrangements ([facility]) Home Accessibility no concerns Number of [...] up when pt is available. CECY Kearns, EDUCATIONAL SIGN LANGUAGE INTERPRETER [phone] phone [phone] pager Joseph Quintana MD - 02/04/2014 11:51 [...] Dr. Quintana. Sina Robison MD Nephrology Fellow [phone] Attestation: This patient has been seen and [...] for this basename: PTHI, in the last 52903 hours IRON STUDIES No results found for this basename: IRON, FEB, IRONSAT, THEE, in the last 30515 hours Imaging: All imaging studies reviewed by [...] or equal to 12.0 mlU/mL. Adeline Diaz [phone] Attestation: The patient has been seen and [...] donor kidney transplant, with stent on 02/02/14. RACE AND SPORTS BOOK WRITER donor. Graft function:uncertain, Cr slightly up. Slow [...] . Medical Decision Making: Medium Subsequent visit 56521 (moderate level decision making) PATO/Fellow/Resident Provider: Caitlin [...] note and orders. Migel Merchant MD, PhD woodwind instrument repairer Abdominal Organ Transplantation Carmelita Rosario, RN - 02/03/2014 9:38 AM CDT Patient removed from the UNOS waitlist after donor kidney transplant. UNOS ID is [id number]. Rafaela Cardona - 02/03/2014 9:17 AM CDT [...] followed general diet. 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 CURRENT NUTRITION ORDERS - [...] DDKT ASSESSED NUTRITION NEEDS: Estimated Energy Needs: 0439-9445+ kcals (25-30+ Kcal/Kg) Justification: maintenance post-transplant Estimated [...] (6- 8 weeks). Rec follow heart-healthy diet mcfp. Implementation Nutrition education: Provided instruction on post-transplant diet with discussion regarding protein sources and high protein needs in acute post-tx phase. 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 Discussed [...] adjustment. Rafaela Cardona RD, LD Weekend Coverage [phone] Jose Aguirre MD - 02/03/2014 4:57 AM CDT Surgery Post-Operative Note 02/03/2014 POD # 0 s/p Donor Kidney Transplant, Right iliac fossa, with venous reconstruction. A J-J ureteral stent was placed. S: Patient c/o of minimal abdominal pain, well controlled with pain medications. Patient c/o pressure feeling at the lower abdomen, uncomfortable sensation with gbibs catheter in place. Patient denies chest pain, [...] Doing well postoperatively. Pain: Controlled by Dilaudid RN SHIFT MGR Diet: NPO tonight Volume Status: Borderline low UOP, continue MIVF, 0.9 % NS 500 cc bolus given for low UOP, CVP not accurate, systolic in 100-110 Recheck hemoglobin and potassium normal. Rest of the plan per primary team. Will continue to follow. Jose Aguirre MD PGY-1.................02/03/2014 Surgery Cross Cover Pager:[phone] documented in this encounter H&P Notes Caitlin [...] 1 tablet by mouth daily. ??? 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 Kidney bx [...] note and orders. Migel Merchant MD, PhD woodwind instrument repairer Abdominal Organ Transplantation documented in this encounter Consult Notes Joseph Rodriguez MD - 02/04/2014 11:03 AM CDTAssociated Order(s): CARDIOLOGY IP CONSULT [facility] CARDIOLOGY CONSULT SERVICE INITIAL CONSULT NOTE [...] 1 tablet by mouth daily. ??? 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 2. There is no [...] assessment and plan. José Miguel Alvarez MD Seo Strategist Pager: [phone] February 04, 2014 Kaitlynn Leon MD - 02/03/2014 9:30 AM CDT Nephrology Initial Consult February 03, 2014 Diego Guthrie Date of : 1950 Date of Admission:02/02/2014 Primary care provider: Momo Forbes Requesting physician: Migel Merchant MD ASSESSMENT AND RECOMMENDATIONS: 1. DDKT - RACE AND SPORTS BOOK WRITER -59 yo women; slow graft function-no immediate need for dialysis , but may require tomorrow if UO does not order picker. We will monitor Induction with [...] h/o type 2 Dm, who received DDKT (RACE AND SPORTS BOOK WRITER) on 02/02/2014 donor kidney had severe atherosclerotic [...] ??? Cataract iol, rt/lt both eyes MEDICATIONS: PERSONNEL PSYCHOLOGIST Meds Prior to Admission medications Medication Sig Last Dose Taking? Auth Provider Calcium Carbonate-Vitamin D (CALCIUM + D PO) Take by mouth daily. Reported, Patient lisinopril (PRINIVIL,ZESTRIL) 40 MG tablet Take 40 mg by mouth 2 times daily. Reported, Patient METOPROLOL SUCCINATE PO Take by mouth daily. Reported, Patient aspirin 81 MG tablet Take 1 tablet by mouth daily. Reported, Patient B xtgqghz-C-redrs acid (NEPHROCAPS) 1 MG capsule Take 1 [...] Intravenous Central line Once ??? HYDROmorphone Intravenous RN SHIFT MGR Infusion Meds ??? 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 Alvin iDego Cardiovascular Disease Fellow [phone] Patient seen and examined by me with [...] Cullen MD, PhD Jarad Cullen MD, PhD [phone] documented in this encounter Nursing Notes Gretta Mary RN - 02/02/2014 11:[address] Owens with Transplant Surgery notified of stat lab results. Magnesium replaced. Dr. Blank with Anesthesia reviewed chest x-ray. CVC not deep enough to give accurate CVP readings, however all lumens aspirate blood well. Patient is ok to transfer to unit 6B per [facility]. documented in this encounter Miscellaneous Notes Plan of Care - Amanda Hernandez RN - 02/08/2014 3:44 PM CDT Problem: IP GENERAL POC-ADULT,OB,BEHAVIORAL FVCPM Goal: Individualization/Patient-Specific Goal (Adult,OB,Behavioral The patient and/or their event sales representative will achieve their patient-specific goals [...] Card updated. [facility] Left facility accompanied by s.gumaro at 1600. 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 High protein diet x 8 weeks. Practice food safety precautions - no fish/seafood x 3 weeks. Inez Luevano MS, RD, LD Pager [phone] Pharmacy-Immunosuppression Monitoring - Em Vasquez [facility] - 02/07/2014 9:06 AM CDT [...] Pharm.D., [facility] Pager [phone] Plan of Care - Annmarie Colby RN - 02/07/2014 5:11 AM CDT Problem: IP GENERAL POC-ADULT,OB,BEHAVIORAL FVCPM Goal: Individualization/Patient-Specific Goal (Adult,OB,Behavioral The patient and/or their event sales representative will achieve their patient-specific goals [...] Goal (Adult,OB,Behavioral The patient and/or their event sales representative will achieve their patient-specific goals [...] increased fluid intake, urine color is becoming material control associate( tea color/bloody- >dark sy/tea color). Incisional pain [...] Therapy Goals The patient and/or their event sales representative will achieve their patient-specific goals [...] Therapy Goals The patient and/or their event sales representative will achieve their patient-specific goals [...] Goal (Adult,OB,Behavioral The patient and/or their event sales representative will achieve their patient-specific goals [...] Goal (Adult,OB,Behavioral The patient and/or their event sales representative will achieve their patient-specific goals [...] Therapy Goals The patient and/or their event sales representative will achieve their patient-specific goals [...] time. Pharmacy - Cayetano Olivera [facility] - 02/05/2014 12:26 PM CDT Visited 02/05/2014 in hospital room prior to discharge to review medications, review discharge process and review specialty pharmacy program. Med Review: Reviewed patient's medications and medical conditions. Patient would like to use [facility] to manage all medications. Medcard: [...] Specialty Pharmacy review: Discussed the benefits of [facility] and Diego has enrolled. Also gave him supplies (blood pressure cuff, thermometer, and pill box) Other concerns: No other concerns at this time. No further questions for this pharmacist. Inez Cox, Student Pharmacist I&C Technician [facility] [address] [place] [address] Cayetano Olivera, Pharmacist [facility] [phone] Pharmacy-Anticoagulation Service - Teresa Wright [facility] - 02/05/2014 11:29 AM CDT [...] Goal (Adult,OB,Behavioral The patient and/or their event sales representative will achieve their patient-specific goals [...] melonie hard time making full sentences. When telegraphic typewriter operator came on shift at 8pm patient was [...] Goal (Adult,OB,Behavioral The patient and/or their event sales representative will achieve their patient-specific goals [...] Therapy Goals The patient and/or their event sales representative will achieve their patient-specific goals [...] by friend. Pt transferred to chair, VSS, boilermaking supervisor on, oriented to room. Pharmacy-Admission Medication History - Teresa Wright, [facility] - 02/04/2014 11:54 AM CDT Admission medication history interview status for the 02/02/2014 admission is complete. See [facility] admission navigator for allergy information, prior to admission medications and immunization status. Medication history interview sources (including written lists, pill bottles, clinic record):Patient Medication history source reliability:Good Primary pharmacy:[facility] phone number: [phone] Changes made to PERSONNEL PSYCHOLOGIST medication list (reason) Added: Vitamin D 1,000 [...] at Unknown time Yes Reported, Patient B knjlueo-W-mlyfd acid (NEPHROCAPS) 1 MG capsule Take 1 [...] Goal (Adult,OB,Behavioral The patient and/or their event sales representative will achieve their patient-specific goals [...] 45 minutes and remains in A-fib via industrial illuminating engineer. Repeat EKG around 1000 showed continued Afibl. [...] Therapy Goals The patient and/or their event sales representative will achieve their patient-specific goals related to the plan of care. The patient-specific goals include: PT 7A: HOLD for AM per RN - pt with a-fib this morning. Plan of Care - Alisson Diane RN - 02/04/2014 6:45 AM CDT Problem: IP GENERAL POC-ADULT,OB,BEHAVIORAL FVCPM Goal: Individualization/Patient-Specific Goal (Adult,OB,Behavioral The patient and/or their event sales representative will achieve their patient-specific goals [...] Goal (Adult,OB,Behavioral The patient and/or their event sales representative will achieve their patient-specific goals [...] Pharmacy-Transplant Note - Davina Schuster, [facility] - 02/03/2014 4:28 PM CDT [...] Goal (Adult,OB,Behavioral The patient and/or their event sales representative will achieve their patient-specific goals related to the plan of care. The patient-specific goals include: 1. Pt will remain hemodynamically stable 2. Pt will have adequate urine output 3. Pt will be free of falls. RD Patient will verbalize understanding of 3 important aspects of post-transplant diet guidelines. PO intake >50% meals TID once diet adv. Report taken from [facility] on 6B; patient transferred to from 6B via wheelchair around 1500. Patientsettled into room, oriented to floor/room and call light. VS taken. Orders released. Continue ordersas written and notify MD with any concerns. Plan of Care - Sofie Christianson RN - 02/03/2014 2:59 PM CDT Problem: IP GENERAL POC-ADULT,OB,BEHAVIORAL FVCPM Goal: Plan of Care Review (Adult,OB,Behavioral) The patient and/or their event sales representative will communicate an understanding of [...] algorithm 2, 1 unit now. Pt still [id number] NC to maintain sats above 90 % [...] Goal (Adult,OB,Behavioral The patient and/or their event sales representative will achieve their patient-specific goals [...] Intermittent sharp R lower abd pain. Dilaudid RN SHIFT MGR encouraged, increased to 0.2/10/1.2. R lower abd [...] 0200 made 20cc/hr, at 0300 made 30cc/hr. Robards/red tinged urine. MIVF @ 125/hr. VSS. HR 70s, BPs 100s-120s/60s. No new orders at this time. Will continue to monitor. Plan of Care - Tasia Andrade RN - 02/03/2014 12:00 AM CDT Pt arrived to 6B from PACU, s/p DDKT. A&O x3-4. VSS. Robards/red urine output. Small amt drainage on abd [...] to Type 2 Diabetes. The patient received [facility] offer for a Donor RACE AND SPORTS BOOK WRITER (expanded criteria donor) kidney transplant. After discussing [...] The UNOS number of the donor is [id number]. The crossmatch was done prospectively; and the [...] reconstruction. FACULTY SURGEON: Migel Merchant M.D., Ph.D. FELLOW/DANCE STUDIO MANAGER SURGEON: Caitlin Owens MD fellow ANESTHESIA: None VERIFICATION: Prior to incision, I verified the donor ABO and recipient ABO. After the donor organ arrived to the operating room and prior to anastamosis, I visually verified that the donor identification, blood type, and other vital data were compatible with the recipient. FINDINGS: Donor type: RACE AND SPORTS BOOK WRITER (expanded criteria donor) Organ: kidney Graft Injury: [...] Goal (Adult,OB,Behavioral The patient and/or their event sales representative will achieve their patient-specific goals [...] Goal (Adult,OB,Behavioral The patient and/or their event sales representative will achieve their patient-specific goals [...] GLUCOSE Tacrolimus level (02/08/2014 6:42 AM CDT) [facility] gist Method Time Signature Tacrolimus Not Provided [facility] Last Dose [facility] Tacrolimus 10.0 5.0 - [facility] Level 15.0 ug/L [facility] Comment: Tacrolimus Reference Range Kidney Transplant [...] Phon e Number [facility] [address] [place] [address] [facility] LAB[facility] (ABNORMAL) INR (02/08/2014 6:42 AM CDT) P athologist Signature INR 1.28 (H) 0.86 - 1.14 [facility] Specimen Anatomical Collection Method Collection Time Receive d Time (Source) Location / / Volume Laterality Blood specimen 02/08/2014 6:42 AM 014 6:43 (specimen) CDT AM CDT Omaira Chavez PA-C LAB - BLOOD ORDERABLES Performing Organization Address City/[facility]/ZIP Code Phon e Number [facility] [address] [place], [place] [id number] [place] [address] LABS (ABNORMAL) Basic metabolic panel (02/08/2014 6:42 AM CDT) Patholo gist Method Time Signature Sodium 144 133 - 144 [facility] mmol/L [facility] Potassium 3.9 3.4 - 5.3 [facility] mmol/L [facility] Chloride 110 (H) 94 - 109 [facility] mmol/L [facility] Carbon Dioxide 25 20 - 32 [facility] mmol/L [facility] Anion Gap 8 6 - 17 [facility] mmol/L [facility] Glucose 144 (H) 60 - 99 [facility] mg/dL [facility] Urea Nitrogen 66 (H) 7 - 30 [facility] mg/dL [facility] Creatinine 2.38 (H) 0.66 - [facility] 1.25 mg/dL [facility] GFR Estimate 28 (L) >60 [facility] mL/min/1.7 [place] m2 CAMPUS LABS GFR Estimate If 34 (L) >60 [facility] Black mL/min/1.7 [place] m2 [facility] LABS Calcium 9.4 8.5 - 10.4 [facility] mg/dL [facility] LABS Specimen Anatomical Collection Method Collection Time Receive d Time (Source) Location / / Volume Laterality Blood specimen 02/08/2014 6:42 AM 014 6:43 (specimen) CDT AM CDT Omaira Chavez PA-C LAB - BLOOD ORDERABLES Performing Organization Address City/State/ZIP Code Phon e Number [facility] [address] [place] [address] [facility] LABS Phosphorus (02/08/2014 6:42 AM CDT) [...] Phon e Number [facility] [address] LABS Magnesium (02/08/2014 6:42 AM CDT) P athologist Signature Magnesium 2.2 1.6 - 2.3 [facility] mg/dL [place] LABS Specimen Anatomical Collection Method Collection Time Receive d Time (Source) Location / / Volume Laterality Blood specimen 02/08/2014 6:42 AM 014 6:43 (specimen) CDT AM CDT Omaira Chavez PA-C LAB - BLOOD ORDERABLES Performing Organization Address City/[facility]/ZIP Code Phon e Number [facility] [address] LABS (ABNORMAL) CBC with platelets differential (02/08/2014 6:42 AM CDT) Patholo gist Method Time Signature WBC 4.8 4.0 - [facility] 11.0 [facility] 10e9/L [place] LABS RBC Count 2.56 (L) 4.4 - 5.9 [facility] 10e12/L [facility] LABS Hemoglobin 7.8 (L) 13.3 - [facility] 17.7 g/dL [facility] LABS Hematocrit 23.5 (L) 40.0 - [facility] 53.0 % [facility] LABS MCV 92 78 - 100 [facility] fl [facility] LABS MCH 30.5 26.5 - [facility] 33.0 pg [facility] LABS MCHC 33.2 31.5 - [facility] 36.5 g/dL [facility] LABS RDW 14.5 10.0 - [facility] 15.0 % [facility] LABS Platelet Count 70 (L) 150 - 450 [facility] 10e9/L [facility] LABS Diff Method Automated [facility] Method [facility] LABS % Neutrophils 86.3 % [facility] LABS % Lymphocytes 3.1 % [facility] LABS % Monocytes 9.4 % [facility] LABS % Eosinophils 1.0 % [facility] LABS % Basophils 0.0 % [facility] LABS % Immature 0.2 % [facility] Granulocytes [facility] LABS Absolute 4.1 1.6 - 8.3 [facility] [...] Address City/State/ZIP Code Phon e Number [phone] [place] [address] LABS (ABNORMAL) Glucose by meter (02/07/2014 10:18 PM CDT) P athologist Signature Glucose 233 (H) 60 - 99 POINT OF CARE mg/dL TEST, GLUCOSE Specimen Anatomical Collection Method Collection Time Receive d Time (Source) Location / / Volume Laterality 02/07/2014 10:18 02/07/2014 PM CDT 10:20 PM CDT Migel LARES - BEAKER POCT Performing Organization Address City/[facility] [...] POCT Performing Organization Address City/[facility]/ZIP [facility] Phon e Number FV POINT OF [...] LAB - BEAKER POCT Performing Organization Address [facility] Phon e Number FV POINT OF CARE [...] CDT Migel JONES POCT Performing Organization Address City/[facility] Code Phon e Number FV [...] [facility]/ZIP Code Phon e Number [facility] [address] [place] [address] [facility] LABS (ABNORMAL) Basic metabolic panel (02/07/2014 4:23 AM CDT) Patholo gist Method Time Signature Sodium 143 133 - 144 [facility] mmol/L [facility] LABS Potassium 4.1 3.4 - 5.3 [facility] mmol/L [facility] LABS Chloride 109 94 - 109 [facility] mmol/L [facility] LABS Carbon Dioxide 24 20 - 32 [facility] mmol/L [facility] LABS Anion Gap 10 6 - 17 [facility] mmol/L [facility] LABS Glucose 185 (H) 60 - 99 [facility] mg/dL [facility] LABS Urea Nitrogen 77 (H) 7 - 30 [facility] mg/dL [facility] LABS Creatinine 3.02 (H) 0.66 - [facility] 1.25 mg/dL [facility] LABS GFR Estimate 21 (L) >60 [facility] mL/min/1.7 [facility]S GFR Estimate If 26 (L) >60 [facility] Black mL/min/1.7 [place] m2 [facility]AMPUS LABS Calcium 9.3 8.5 - 10.4 [facility] mg/dL [facility] LABS Specimen Anatomical Collection Method Collection Time Receive d Time (Source) Location / / Volume Laterality Blood specimen 02/07/2014 4:23 AM 014 4:24 (specimen) CDT AM CDT Omaira Chavez PA-C LAB - BLOOD ORDERABLES Performing Organization Address City/State/ZIP Code Phon e Number [facility] [address] [place] [address] [facility] LABS Phosphorus (02/07/2014 4:23 AM CDT) [...] Phon e Number [facility] [address] LABS Magnesium (02/07/2014 4:23 AM CDT) P athologist Signature Magnesium 2.1 1.6 - 2.3 [facility] mg/dL [place] LABS Specimen Anatomical Collection Method Collection Time Receive d Time (Source) Location / / Volume Laterality Blood specimen 02/07/2014 4:23 AM 014 4:24 (specimen) CDT AM CDT Omaira Chavez PA-C LAB - BLOOD ORDERABLES Performing Organization Address City/[facility]/ZIP Code Phon e Number [facility] [address] [place], [place] [phone] [place] [address] LABS (ABNORMAL) CBC with platelets differential (02/07/2014 4:23 AM CDT) Patholo gist Method Time Signature WBC 2.7 (L) 4.0 - [facility] 11.0 [facility] 10e9/L [place] LABS RBC Count 2.80 (L) 4.4 - 5.9 [facility] 10e12/L [facility] LABS Hemoglobin 8.5 (L) 13.3 - [facility] 17.7 g/dL [facility] LABS Hematocrit 25.8 (L) 40.0 - [facility] 53.0 % [facility] LABS MCV 92 78 - 100 [facility] fl [facility] LABS MCH 30.4 26.5 - [facility] 33.0 pg [facility] LABS MCHC 32.9 31.5 - [facility] 36.5 g/dL [facility] LABS RDW 14.5 10.0 - [facility] 15.0 % [facility] LABS Platelet Count 77 (L) 150 - 450 [facility] 10e9/L [facility] LABS Diff Method Automated [facility] Method [facility] LABS % Neutrophils 87.5 % [facility] LABS % Lymphocytes 3.8 % [facility] LABS % Monocytes 8.7 % [facility] LABS % Eosinophils 0.0 % [facility] LABS % Basophils 0.0 % [facility] LABS % Immature 0.0 % [facility] Granulocytes [facility] Absolute 2.3 1.6 - 8.3 [facility] Neutrophil 10e9/L [facility] [place] [facility] Absolute 0.1 (L) 0.8 - 5.3 [facility] Lymphocytes 10e9/L [facility] LABS Absolute 0.2 0.0 - 1.3 [facility] Monocytes 10e9/L [facility] LABS Absolute 0.0 0.0 - 0.7 [facility] Eosinophils 10e9/L [place] [facility] LABS Absolute 0.0 0.0 - 0.2 [facility] Basophils 10e9/L [facility] LABS Abs Immature 0.0 0 - 0.4 [facility] Granulocytes 10e9/L [facility] LABS Specimen Anatomical Collection Method Collection Time Receive d Time (Source) Location / / Volume Laterality Blood specimen 02/07/2014 4:23 AM 014 4:24 (specimen) CDT AM CDT Omaira Chavez PA-C LAB - BLOOD ORDERABLES Performing Organization Address City/[facility]/ZIP Code Phon e Number [address] LABS (ABNORMAL) Hemoglobin A1c (02/07/2014 4:23 AM CDT) Analysis Performed At Patho logist Time Signature Hemoglobin A1C 6.1 (H) 4.3 - 6.0 [facility] % [facility] LABS Specimen Anatomical Collection Method Collection Time Receive d Time (Source) Location / / Volume Laterality Blood specimen 02/07/2014 4:23 AM 014 4:24 (specimen) CDT AM CDT Omaira Chavez PA-C LAB - BLOOD ORDERABLES Performing Organization Address City/[facility]/ZIP Code Phon e Number [address] LABS (ABNORMAL) Glucose by meter (02/06/2014 [...] Signature Hemoglobin 8.8 (L) 13.3 - 17.7 [facility] g/dL [place] LABS Specimen Anatomical Collection Method Collection Time Receive d Time (Source) Location / / Volume Laterality Blood specimen 02/06/2014 4:59 PM 014 5:12 (specimen) CDT PM CDT Omaira Chavez PA-C LAB - BLOOD ORDERABLES Performing Organization Address City/State/ZIP Code Phon e Number [address] [address] [facility] LABS (ABNORMAL) Glucose by meter (02/06/2014 12:01 PM CDT) athologist Signature Glucose 181 (H) 60 - 99 POINT OF CARE mg/dL TEST, GLUCOSE Specimen Anatomical Collection Method Collection Time Receive d Time (Source) Location / / Volume Laterality 02/06/2014 12:01 02/06/2014 PM CDT 12:05 PM CDT Migel Merchant MD LAB - BEAKER POCT Performing Organization Address City/[facility]/ZIP Code Phon e Number [facility] POINT OF CARE TEST, GLUCOSE POINT OF CARE TEST, GLUCOSE (ABNORMAL) Partial thromboplastin time (02/06/2014 5:57 AM CDT) P athologist Signature PTT 154 (HH) 22 - 37 sec [facility] LABS Comment: Critical Value called to and read back Whitney Poon RN AT 0642. PW Specimen Anatomical Collection Method Collection Time Receive d Time (Source) Location / / Volume Laterality 02/06/2014 5:57 AM 4 6:03 CDT AM CDT Adeline Diaz MD LAB - BLOOD ORDERABLES Performing Organization Address City/[facility]/ZIP Code Phon e Number [phone] [place] [address] LABS Heparin Xa (10a) Level (02/06/2014 5:57 AM CDT) P athologist Signature Heparin 10A 0.92 IU/mL [facility] LABS Comment: Therapeutic Range: ?? UFH: [...] Phon e Number [facility] [address] [place] [address] [facility] LABS (ABNORMAL) INR (02/06/2014 5:57 AM CDT) P athologist Signature INR 1.32 (H) 0.86 - 1.14 [facility] LABS Specimen Anatomical Collection Method Collection Time Receive d Time (Source) Location / / Volume Laterality Blood specimen 02/06/2014 5:57 AM 014 6:03 (specimen) CDT AM CDT Omaira Chavez PA-C LAB - BLOOD ORDERABLES Performing Organization Address City/State/ZIP Code Phon e Number [facility] [address] LABS (ABNORMAL) Basic metabolic panel (02/06/2014 5:57 AM CDT) Patholo gist Method Time Signature Sodium 142 133 - 144 [facility] mmol/L [facility] LABS Potassium 4.7 3.4 - 5.3 [facility] mmol/L [facility] LABS Chloride 106 94 - 109 [facility] mmol/L [facility] LABS Carbon Dioxide 28 20 - 32 [facility] mmol/L [facility] LABS Anion Gap 8 6 - 17 [facility] mmol/L [facility] LABS Glucose 196 (H) 60 - 99 [facility] mg/dL [facility] LABS Urea Nitrogen 71 (H) 7 - 30 [facility] mg/dL [facility] LABS Creatinine 3.96 (H) 0.66 - [facility] 1.25 mg/dL [facility] LABS GFR Estimate 15 (L) >60 [facility] mL/min/1.7 [place] m2 CAMPUS LABS GFR Estimate If 19 (L) >60 [facility] Black mL/min/1.[address] LABS Calcium 9.4 8.5 - 10.4 [facility] mg/dL [facility] LABS Specimen Anatomical Collection Method Collection Time Receive d Time (Source) Location / / Volume Laterality Blood specimen 02/06/2014 5:57 AM 014 6:03 (specimen) CDT AM CDT Omaira Chavez PA-C LAB - BLOOD ORDERABLES Performing Organization Address City/State/ZIP Code Phon e Number [facility] [address] [place] [address] [facility] LABS Phosphorus (02/06/2014 5:57 AM CDT) athologist Signature Phosphorus 4.5 2.5 - 4.5 [facility] mg/dL [place] LABS Specimen Anatomical Collection Method Collection Time Receive d Time (Source) Location / / Volume Laterality Blood specimen 02/06/2014 5:57 AM 014 6:03 (specimen) CDT AM CDT Omaira Chavez PA-C LAB - BLOOD ORDERABLES Performing Organization Address City/[facility]/ZIP Code Phon e Number [facility] [address] LABS Magnesium (02/06/2014 5:57 AM CDT) athologist Signature Magnesium 1.9 1.6 - 2.3 [facility] mg/dL [place] LABS Specimen Anatomical Collection Method Collection Time Receive d Time (Source) Location / / Volume Laterality Blood specimen 02/06/2014 5:57 AM 014 6:03 (specimen) CDT AM CDT Omaira Chavez PA-C LAB - BLOOD ORDERABLES Performing Organization Address City/State/[facility] Code Phon e Number [facility] [address] LABS (ABNORMAL) CBC with platelets differential (02/06/2014 5:57 AM CDT) [facility] Method Time Signature WBC 5.1 4.0 - [facility] 11.0 [facility] 10e9/L [place] LABS RBC Count 3.13 (L) 4.4 - 5.9 [facility] 10e12/L [facility] LABS Hemoglobin 9.6 (L) 13.3 - [facility] 17.7 g/dL [facility] LABS Hematocrit 29.0 (L) 40.0 - [facility] 53.0 % [facility] LABS MCV 93 78 - 100 [facility] fl [facility] LABS MCH 30.7 26.5 - [facility] 33.0 pg [facility] LABS MCHC 33.1 31.5 - [facility] 36.5 g/dL [facility] LABS RDW 14.5 10.0 - [facility] 15.0 % [facility] LABS Platelet Count 85 (L) 150 - 450 [facility] 10e9/L [facility] LABS Diff Method Automated [facility] Method [facility] LABS % Neutrophils 86.0 % [facility] LABS % Lymphocytes 5.1 % [facility] LABS % Monocytes 8.7 % [facility] LABS % Eosinophils 0.0 % [facility] LABS % Basophils 0.0 % [facility] LABS % Immature 0.2 % [facility] Granulocytes [facility] LABS Absolute 4.4 1.6 - 8.3 [facility] Neutrophil 10e9/L [facility] LABS Absolute 0.3 (L) 0.8 - 5.3 [facility] Lymphocytes 10e9/L [facility] LABS Absolute 0.4 0.0 - 1.3 [facility] Monocytes 10e9/L [facility] LABS Absolute 0.0 0.0 - 0.7 [facility] Eosinophils 10e9/L [facility] LABS Absolute 0.0 0.0 - 0.2 [facility] Basophils 10e9/L [facility] LABS Abs Immature 0.0 0 - 0.4 [facility] Granulocytes 10e9/L [facility] LABS Specimen Anatomical Collection Method Collection Time Receive d Time (Source) Location / / Volume Laterality Blood specimen 02/06/2014 5:57 AM 014 6:03 (specimen) CDT AM CDT Omaira Chavez PA-C LAB - BLOOD ORDERABLES Performing Organization Address City/State/ZIP Code Phon e Number [address] LABS (ABNORMAL) Lipid panel reflex to direct LDL (02/06/2014 5:57 AM CDT) P athologist Signature Cholesterol 126 <200 mg/dL [facility] LABS Comment: LDL Cholesterol is the primary guide to therapy. The NCEP recommends further evaluation of: patients with cholesterol greater than 200 mg/dL if additional risk facto rs are present, cholesterol greater than 240 mg/dL, triglycerides greater than 1 50 mg/dL, or HDL less than 40 mg/dL. Triglycerides 100 0 - 150 mg/dL [facility] LABS HDL Cholesterol 35 (L) >40 mg/dL [facility] LABS LDL Cholesterol Calculated 71 0 - 129 mg/dL [facility] LABS Comment: LDL Cholesterol is the primary guide to therapy: LDL-cholesterol goal in high risk patients is <100 mg/dL and in very high risk patients is <70 mg/dL. VLDL-Cholesterol 20 0 - 30 mg/dL [facility] Cholesterol/HDL Ratio 3.6 0.0 - 5.0 [facility] Specimen Anatomical Collection Method Collection Time Receive d Time (Source) Location / / Volume Laterality Blood specimen 02/06/2014 5:57 AM 014 6:03 (specimen) CDT AM CDT Omaira Chavez PA-C LAB - BLOOD ORDERABLES Performing Organization Address City/State/ZIP Code Phon e Number [facility] [address] [place], [place] [phone] [place] [address] LABS Tacrolimus level (02/06/2014 5:57 AM CDT) [facility] gist Method Time Signature Tacrolimus S Negative [facility] Last Dose [facility] LABS Tacrolimus 12.7 5.0 - [facility] Level 15.0 ug/L [facility] LABS Comment: Tacrolimus Reference Range Kidney Transplant [...] [facility]/ZIP Code Phon e Number [facility] [address] LABS (ABNORMAL) Glucose by meter (02/06/2014 3:21 AM CDT) P athologist Signature Glucose 216 (H) 60 - 99 POINT OF CARE mg/dL TEST, GLUCOSE Specimen Anatomical Collection Method Collection Time Receive d Time (Source) Location / / Volume Laterality 02/06/2014 3:21 AM 4 3:25 CDT AM CDT Migel Merchant MD LAB - BEAKER POCT Performing Organization Address City/[facility]/ZIP Code Phon e Number [facility] POINT OF CARE TEST, GLUCOSE POINT OF CARE TEST, GLUCOSE (ABNORMAL) Hemoglobin (02/06/2014 1:02 AM CDT) P athologist Signature Hemoglobin 10.2 (L) 13.3 - [facility] 17.7 g/dL [place] LABS Specimen Anatomical Collection Method Collection Time Receive d Time (Source) Location / / Volume Laterality Blood specimen 02/06/2014 1:02 AM 014 1:11 (specimen) CDT AM CDT Deysi Alicea MD LAB - BLOOD ORDERABLES Performing Organization Address City/[facility]/ZIP Code Phon e Number [facility] [address] LABS (ABNORMAL) Glucose by meter (02/05/2014 [...] P athologist Signature Heparin 10A 0.64 IU/mL [facility] LABS Comment: Therapeutic Range: ?? UFH: [...] [facility]/ZIP Code Phon e Number [phone] [place] [address] LABS (ABNORMAL) Glucose by meter (02/05/2014 6:04 PM CDT) P athologist Signature Glucose 232 (H) 60 - 99 POINT OF CARE mg/dL TEST, GLUCOSE Specimen Anatomical Collection Method Collection Time Receive d Time (Source) Location / / Volume Laterality 02/05/2014 6:04 PM 4 6:10 CDT PM CDT Migel LARES - BEAKER POCT Performing Organization Address City/[facility] [...] LAB - BEAKER POCT Performing Organization Address [facility] Phon e Number FV POINT OF CARE [...] LAB - BEAKER POCT Performing Organization Address [facility] Phon e Number FV POINT OF CARE [...] LAB - BEAKER POCT Performing Organization Address [facility] Phon e Number [facility] POINT OF CARE TEST, GLUCOSE POINT OF CARE TEST, GLUCOSE (ABNORMAL) INR (02/05/2014 12:04 PM CDT) P athologist Signature INR 1.24 (H) 0.86 - 1.14 [facility] LABS Specimen Anatomical Collection Method Collection Time Receive d Time (Source) Location / / Volume Laterality Blood specimen 02/05/2014 12:04 4 (specimen) PM CDT 12:10 PM CDT Teresa Wright [facility] LAB - BLOOD ORDERABLES Performing Organization Address City/[facility] Phon e Number [facility] [address] LABS (ABNORMAL) CBC with platelets (02/05/2014 12:04 PM CDT) Patholo gist Method Time Signature WBC 7.4 4.0 - 11.0 [facility] 10e9/L [facility] LABS RBC Count 3.31 (L) 4.4 - 5.9 [facility] 10e12/L [facility] LABS Hemoglobin 10.3 (L) 13.3 - [facility] 17.7 g/dL [facility] LABS Hematocrit 31.0 (L) 40.0 - [facility] 53.0 % [facility] LABS MCV 94 78 - 100 [facility] fl [facility] LABS MCH 31.1 26.5 - [facility] 33.0 pg [facility] LABS MCHC 33.2 31.5 - [facility] 36.5 g/dL [facility] LABS RDW 14.7 10.0 - [facility] 15.0 % [facility] LABS Platelet Count 91 (L) 150 - 450 [facility] 10e9/L [facility] LABS Specimen Anatomical Collection Method Collection Time Receive d Time (Source) Location / / Volume Laterality Blood specimen 02/05/2014 12:04 4 (specimen) PM CDT 12:10 PM CDT Omaira Chavez PA-C LAB - BLOOD ORDERABLES Performing Organization Address City/[facility]/ZIP Code Phon e Number [phone] [place] [address] LABS (ABNORMAL) Glucose by meter (02/05/2014 11:25 [...] Basic metabolic panel (02/05/2014 7:02 AM CDT) [facility] gist Method Time Signature Sodium 143 133 - 144 [facility] mmol/L [facility] Potassium 4.3 3.4 - 5.3 [facility] mmol/L [facility] [place] [facility] Chloride 107 94 - 109 [facility] mmol/L [facility] LABS Carbon Dioxide 25 20 - 32 [facility] mmol/L [facility] LABS Anion Gap 10 6 - 17 [facility] mmol/L [facility] LABS Glucose 123 (H) 60 - 99 [facility] mg/dL [facility] LABS Urea Nitrogen 66 (H) 7 - 30 [facility] mg/dL [facility] LABS Creatinine 4.77 (H) 0.66 - [facility] 1.25 mg/dL [facility] [place] [facility] GFR Estimate 12 (L) >60 [facility] mL/min/1.7 [place] [facility]2 [facility] LABS GFR Estimate If 15 (L) >60 [facility] Black mL/min/1.7 [place] [facility]2 [facility] LABS Calcium 9.4 8.5 - 10.4 [facility] mg/dL [facility] LABS Specimen Anatomical Collection Method Collection Time Receive d Time (Source) Location / / Volume Laterality Blood specimen 02/05/2014 7:02 AM 014 7:05 (specimen) CDT AM CDT Omaira Chavez PA-C LAB - BLOOD ORDERABLES Performing Organization Address City/[facility]/ZIP Code Phon e Number [address] LABS (ABNORMAL) Phosphorus (02/05/2014 7:02 AM CDT) P athologist Signature Phosphorus 5.7 (H) 2.5 - 4.5 [facility] mg/dL [place] [facility] Specimen Anatomical Collection Method Collection Time Receive d Time (Source) Location / / Volume Laterality Blood specimen 02/05/2014 7:02 AM 014 7:05 (specimen) CDT AM CDT Omaira Chavez PA-C LAB - BLOOD ORDERABLES Performing Organization Address City/[facility]/ZIP Code Phon e Number [address] LABS Magnesium (02/05/2014 7:02 AM CDT) P athologist Signature Magnesium 2.0 1.6 - 2.3 [facility] mg/dL [place] [facility] Specimen Anatomical Collection Method Collection Time Receive d Time (Source) Location / / Volume Laterality Blood specimen 02/05/2014 7:02 AM 014 7:05 (specimen) CDT AM CDT Omaira Chavez PA-C LAB - BLOOD ORDERABLES Performing Organization Address City/[facility]/ZIP Code Phon e Number [address] LABS (ABNORMAL) CBC with platelets differential (02/05/2014 7:02 AM CDT) Patholo gist Method Time Signature WBC 8.9 4.0 - [facility] 11.0 [place] 10e9/L [place] [facility]S RBC Count 3.20 (L) 4.4 - 5.9 [facility] 10e12/L [facility]S Hemoglobin 9.7 (L) 13.3 - [facility] 17.7 g/dL [facility] Hematocrit 30.0 (L) 40.0 - [facility] 53.0 % [facility] MCV 94 78 - 100 [facility] fl [facility] [place] [facility] MCH 30.3 26.5 - [facility] 33.0 pg [facility] [facility] 32.3 31.5 - [facility] 36.5 g/dL [facility] RDW 14.6 10.0 - [facility] 15.0 % [facility] Platelet Count 96 (L) 150 - 450 [facility] 10e9/L [facility] Diff Method Automated [facility] Method [facility] % Neutrophils 90.2 % [facility] % Lymphocytes 4.4 % [facility] % Monocytes 5.2 % [facility] % Eosinophils 0.0 % [facility] % Basophils 0.0 % [facility] % Immature 0.2 % [facility] Granulocytes [facility] Absolute 8.1 1.6 - 8.3 [facility] Neutrophil 10e9/L [facility] Absolute 0.4 (L) 0.8 - 5.3 [facility] Lymphocytes 10e9/L [facility] Absolute 0.5 0.0 - 1.3 [facility] Monocytes 10e9/L [facility] Absolute 0.0 0.0 - 0.7 [facility] Eosinophils 10e9/L [facility] Absolute 0.0 0.0 - 0.2 [facility] Basophils 10e9/L [facility] Abs Immature 0.0 0 - 0.4 [facility] Granulocytes 10e9/L [facility] Specimen Anatomical Collection Method Collection Time Receive d Time (Source) Location / / Volume Laterality Blood specimen 02/05/2014 7:02 AM 014 7:05 (specimen) CDT AM CDT Omaira Chavez PA-C LAB - BLOOD ORDERABLES Performing Organization Address City/State/ZIP Code Phon e Number [facility] [address] [place] [address] [facility] LABS (ABNORMAL) Parathormone intact (02/05/2014 7:02 AM CDT) Patholo gist Method Time Signature Parathyroid 362 (H) 12 - 72 [facility] Hormone Intact pg/mL [facility] Specimen Anatomical Collection Method Collection Time Receive d Time (Source) Location / / Volume Laterality Blood specimen 02/05/2014 7:02 AM 014 7:05 (specimen) CDT AM CDT Sina Robison MD LAB - BLOOD ORDERABLES Performing Organization Address City/[facility]/ZIP Code Phon e Number [facility] [address] LABS (ABNORMAL) Ferritin (02/05/2014 7:02 AM CDT) athologist Signature Ferritin 932 (H) 20 - 300 [facility] ng/mL [place] [facility] Specimen Anatomical Collection Method Collection Time Receive d Time (Source) Location / / Volume Laterality Blood specimen 02/05/2014 7:02 AM 014 7:05 (specimen) CDT AM CDT Sina Robison MD LAB - BLOOD ORDERABLES Performing Organization Address City/State/ZIP Code Phon e Number [facility] [address] LABS (ABNORMAL) Iron and iron binding capacity (02/05/2014 7:02 AM CDT) Analysis Performed At Patho logist Time Signature Iron 119 35 - 180 [facility] ug/dL [facility] Iron Binding 207 (L) 240 - 430 [facility] Cap ug/dL [facility] Iron Saturation 58 (H) 15 - 46 % [facility] Index [facility] Specimen Anatomical Collection Method Collection Time Receive d Time (Source) Location / / Volume Laterality Blood specimen 02/05/2014 7:02 AM 014 7:05 (specimen) CDT AM CDT Sina Robison MD LAB - BLOOD ORDERABLES Performing Organization Address City/[facility]/ZIP Code Phon e Number [facility] [address] LABS (ABNORMAL) Glucose by meter (02/05/2014 [...] LAB - BEAJ POCT Performing Organization Address [facility] Code Phon e Number FV [...] LARES - BEAJ POCT Performing Organization Address City/[facility] Code Phon e Number FV [...] LARES - BEAJ POCT Performing Organization Address City/[facility] Code Phon e Number FV [...] LAB - BEAJ POCT Performing Organization Address City/[facility] Phon e Number FV POINT OF CARE [...] LAB - BEAJ POCT Performing Organization Address [facility] Phon e Number FV POINT OF CARE [...] LAB - BEAJ POCT Performing Organization Address [facility] Phon e Number FV POINT OF CARE [...] LARES - BEAJ POCT Performing Organization Address [facility] Phon e Number FV POINT OF CARE [...] Carr MD ECG ORDERABLES Performing Organization Address [facility] Phon e Number RADIOLOGY RESULTS (ABNORMAL) Glucose by meter (02/04/2014 10:56 PM CDT) P athologist Signature Glucose 161 (H) 60 - 99 POINT OF CARE mg/dL TEST, GLUCOSE Specimen Anatomical Collection Method Collection Time Receive d Time (Source) Location / / Volume Laterality 02/04/2014 10:56 02/04/2014 PM CDT 11:00 PM CDT Migel LARES - ROBERT POCT Performing Organization Address [facility] Phon e Number FV POINT OF CARE [...] LARES - ROBERT POCT Performing Organization Address [facility] Phon e Number FV POINT OF CARE [...] CDT Migel JONES POCT Performing Organization Address [facility] Phon e Number FV POINT OF CARE [...] athologist Signature Troponin I 0.016 0.000 - [facility] 0.034 ug/L [place] [facility] Specimen Anatomical Collection Method Collection Time Receive d Time (Source) Location / / Volume Laterality Blood specimen 02/04/2014 7:10 PM 014 7:23 (specimen) CDT PM CDT Adeline Diaz MD LAB - BLOOD ORDERABLES Performing Organization Address City/[facility]/ZIP Code Phon e Number [phone] [place] [address] LABS (ABNORMAL) Glucose by meter (02/04/2014 7:01 [...] athologist Signature Troponin I 0.025 0.000 - [facility] 0.034 ug/L CAMPUS LABS Specimen Anatomical Collection Method Collection Time Receive d Time (Source) Location / / Volume Laterality Blood specimen 02/04/2014 12:42 4 (specimen) PM CDT 12:45 PM CDT Adeline Diaz MD LAB - BLOOD ORDERABLES Performing Organization Address City/State/ZIP Code Phon e Number [address] [address] [facility] LABS (ABNORMAL) Glucose by meter (02/04/2014 12:27 PM CDT) P athologist Signature Glucose 140 (H) 60 - 99 POINT OF CARE mg/dL TEST, GLUCOSE Specimen Anatomical Collection Method Collection Time Receive d Time (Source) Location / / Volume Laterality 02/04/2014 12:27 02/04/2014 PM CDT 12:30 PM CDT Migel Merchant MD LAB - BEAJ POCT Performing Organization Address [facility] Phon e Number FV POINT OF CARE [...] LAB - BEAJ POCT Performing Organization Address [facility] Phon e Number FV POINT OF CARE [...] LAB - BEAJ POCT Performing Organization Address [facility] Phon e Number FV POINT OF CARE TEST, GLUCOSE POINT OF CARE TEST, GLUCOSE EKG 12-lead, complete (02/04/2014 9:21 AM CDT) [facility] gist Method Time Signature Interpretation ECG Click View RADIOLOGY Image link RESULTS to view waveform and result Specimen (Source) Anatomical Collection Method Collection Time Re ceived Time Location / / Volume Laterality 02/04/2014 9:21 AM CDT Omaira Chavez PA-C ECG ORDERABLES Performing Organization Address [facility] Phon e Number RADIOLOGY RESULTS (ABNORMAL) Glucose by meter (02/04/2014 9:02 AM CDT) P athologist Signature Glucose 203 (H) 60 - 99 POINT OF CARE mg/dL TEST, GLUCOSE Specimen Anatomical Collection Method Collection Time Receive d Time (Source) Location / / Volume Laterality 02/04/2014 9:02 AM 4 9:05 CDT AM CDT Migel Merchant MD LAB - BEAKER POCT Performing Organization Address [facility] Phon e Number FV POINT OF CARE [...] LAB - BEAJ POCT Performing Organization Address [facility] Phon e Number FV POINT OF CARE [...] LAB - BEAJ POCT Performing Organization Address [facility] Phon e Number FV POINT OF CARE TEST, GLUCOSE POINT OF CARE TEST, GLUCOSE EKG 12-lead, complete (02/04/2014 7:03 AM CDT) [facility] Method Time Signature Interpretation ECG Click View RADIOLOGY Image link RESULTS to view waveform and result Specimen (Source) Anatomical Collection Method Collection Time Re ceived Time Location / / Volume Laterality 02/04/2014 7:03 AM CDT Caitlin Owens MD ECG ORDERABLES Performing Organization Address [facility] Phon e Number RADIOLOGY RESULTS (ABNORMAL) Glucose [...] Troponin I ES <0.012 0.000 - [facility] [place] 0.034 ug/L CAMPUS LABS Specimen Anatomical Collection Method Collection Time Receive d Time (Source) Location / / Volume Laterality 02/04/2014 5:49 AM 4 5:51 CDT AM CDT Caitlin Owens MD LAB - BLOOD ORDERABLES Performing Organization Address City/State/ZIP Code Phon e Number [phone] [place] [address] [facility] (ABNORMAL) Basic metabolic panel (02/04/2014 5:49 AM CDT) Patholo gist Method Time Signature Sodium 142 133 - 144 [facility] mmol/L [facility] Potassium 4.9 3.4 - 5.3 [facility] mmol/L [facility] Chloride 107 94 - 109 [facility] mmol/L [facility] [place] [facility] Carbon Dioxide 23 20 - 32 [facility] mmol/L [facility] [place] [facility] Anion Gap 12 6 - 17 [facility] mmol/L [facility] [place] [facility] Glucose 151 (H) 60 - 99 [facility] mg/dL [facility] Urea Nitrogen 57 (H) 7 - 30 [facility] mg/dL [facility] [place] [facility] Creatinine 5.94 (H) 0.66 - [facility] 1.25 mg/dL [facility] [place] [facility] GFR Estimate 10 (L) >60 [facility] mL/min/1.7 [facility] m2 [facility]AMP[facility] LABS GFR Estimate If 12 (L) >60 [facility] Black mL/min/1.7 [place] m2 [facility] LABS Calcium 9.4 8.5 - 10.4 [facility] mg/dL [facility] Specimen Anatomical Collection Method Collection Time Receive d Time (Source) Location / / Volume Laterality Blood specimen 02/04/2014 5:49 AM 014 5:51 (specimen) CDT AM CDT Omaira Chavez PA-C LAB - BLOOD ORDERABLES Performing Organization Address City/[facility]/ZIP Code Phon e Number [address] LABS (ABNORMAL) Phosphorus (02/04/2014 5:49 AM CDT) P athologist Signature Phosphorus 6.3 (H) 2.5 - 4.5 [facility] mg/dL [place] [facility] Specimen Anatomical Collection Method Collection Time Receive d Time (Source) Location / / Volume Laterality Blood specimen 02/04/2014 5:49 AM 014 5:51 (specimen) CDT AM CDT Omaira Chavez PA-C LAB - BLOOD ORDERABLES Performing Organization Address City/[facility]/ZIP Code Phon e Number [address] LABS Magnesium (02/04/2014 5:49 AM CDT) athologist Signature Magnesium 2.1 1.6 - 2.3 [facility] mg/dL [place] [facility] Specimen Anatomical Collection Method Collection Time Receive d Time (Source) Location / / Volume Laterality Blood specimen 02/04/2014 5:49 AM 014 5:51 (specimen) CDT AM CDT Omaira Chavez PA-C LAB - BLOOD ORDERABLES Performing Organization Address City/[facility]/ZIP Code Phon e Number [address] LABS (ABNORMAL) CBC with platelets differential (02/04/2014 5:49 AM CDT) [facility] Method Time Signature WBC 13.8 (H) 4.0 - [facility] 11.0 [place] 10e9/L [place] [facility] RBC Count 3.10 (L) 4.4 - 5.9 [facility] 10e12/L [facility] Hemoglobin 9.5 (L) 13.3 - [facility] 17.7 g/dL [facility] Hematocrit 28.7 (L) 40.0 - [facility] 53.0 % [facility] MCV 93 78 - 100 [facility] fl [facility] MCH 30.6 26.5 - [facility] 33.0 pg [facility] 33.1 31.5 - [facility] 36.5 g/dL [facility] RDW 14.6 10.0 - [facility] 15.0 % [facility] Platelet Count 91 (L) 150 - 450 [facility] 10e9/L [facility] Diff Method Automated [facility] Method [facility] % Neutrophils 95.8 % [facility] % Lymphocytes 1.2 % [facility] % Monocytes 2.8 % [facility] % Eosinophils 0.0 % [facility] % Basophils 0.0 % [facility] % Immature 0.2 % [facility] Granulocytes [facility] Absolute 13.2 (H) 1.6 - 8.3 [facility] Neutrophil 10e9/L [facility] Absolute 0.2 (L) 0.8 - 5.3 [facility] Lymphocytes 10e9/L [facility] Absolute 0.4 0.0 - 1.3 [facility] Monocytes 10e9/L [facility] Absolute 0.0 0.0 - 0.7 [facility] Eosinophils 10e9/L [facility] Absolute 0.0 0.0 - 0.2 [facility] Basophils 10e9/L [facility] Abs Immature 0.0 0 - 0.4 [facility] Granulocytes 10e9/L [facility] Specimen Anatomical Collection Method Collection Time Receive d Time (Source) Location / / Volume Laterality Blood specimen 02/04/2014 5:49 AM 014 5:51 (specimen) CDT AM CDT Omaira Chavez PA-C LAB - BLOOD ORDERABLES Performing Organization Address City/State/ZIP Code Phon e Number [phone] [place] [address] LABS (ABNORMAL) Glucose by meter (02/04/2014 5:33 [...] LAB - BEAJ POCT Performing Organization Address [facility] Phon e Number FV POINT OF CARE [...] LARES - ROBERT POCT Performing Organization Address [facility] Phon e Number FV POINT OF CARE TEST, GLUCOSE POINT OF CARE TEST, GLUCOSE Glucose by meter (02/04/2014 1:44 AM CDT) P athologist Signature Glucose 99 60 - 99 POINT OF CARE mg/dL TEST, GLUCOSE Specimen Anatomical Collection Method Collection Time Receive d Time (Source) Location / / Volume Laterality 02/04/2014 1:44 AM 4 1:50 CDT AM CDT Mgiel LARES - ROBERT POCT Performing Organization Address [facility] Phon e Number FV POINT OF CARE [...] athologist Signature Potassium 4.8 3.4 - 5.3 [facility] mmol/L CAMPUS LABS Specimen Anatomical Collection Method Collection Time Receive d Time (Source) Location / / Volume Laterality Blood specimen 02/03/2014 10:16 4 (specimen) PM CDT 10:19 PM CDT Caitlin Owens MD LAB - BLOOD ORDERABLES Performing Organization Address City/[facility]/ZIP Code Phon e Number [facility] [address] LABS (ABNORMAL) Hemoglobin (02/03/2014 10:16 PM CDT) athologist Signature Hemoglobin 9.4 (L) 13.3 - 17.7 [facility] g/dL CAMPUS LABS Specimen Anatomical Collection Method Collection Time Receive d Time (Source) Location / / Volume Laterality Blood specimen 02/03/2014 10:16 4 (specimen) PM CDT 10:19 PM CDT Caitlin Owens MD LAB - BLOOD ORDERABLES Performing Organization Address City/[facility]/ZIP Code Phon e Number [facility] [address] LABS (ABNORMAL) Glucose by meter (02/03/2014 9:55 PM CDT) P athologist Signature Glucose 167 (H) 60 - 99 POINT OF CARE mg/dL TEST, GLUCOSE Specimen Anatomical Collection Method Collection Time Receive d Time (Source) Location / / Volume Laterality 02/03/2014 9:55 PM 4 CDT 10:00 PM CDT Migel Merchant MD LAB - ROBERT POCT Performing Organization Address [facility]/ZIP Code Phon e [...] LAB - ROBERT POCT Performing Organization Address [facility] Phon e Number FV POINT OF CARE [...] LAB - BEAJ POCT Performing Organization Address [facility] Phon e Number FV POINT OF CARE [...] LAB - BEAJ POCT Performing Organization Address [facility] Phon e Number FV POINT OF CARE TEST, GLUCOSE POINT OF CARE TEST, GLUCOSE Potassium (02/03/2014 6:52 PM CDT) P athologist Signature Potassium 4.7 3.4 - 5.3 [facility] mmol/L CAMPUS LABS Specimen Anatomical Collection Method Collection Time Receive d Time (Source) Location / / Volume Laterality Blood specimen 02/03/2014 6:52 PM 014 6:53 (specimen) CDT PM CDT Caitlin Owens MD LAB - BLOOD ORDERABLES Performing Organization Address City/[facility]/ZIP Code Phon e Number [address] LABS (ABNORMAL) Hemoglobin (02/03/2014 6:52 PM CDT) athologist Signature Hemoglobin 9.6 (L) 13.3 - 17.7 [facility] g/dL CAMPUS LABS Specimen Anatomical Collection Method Collection Time Receive d Time (Source) Location / / Volume Laterality Blood specimen 02/03/2014 6:52 PM 014 6:53 (specimen) CDT PM CDT Caitlin Owens MD LAB - BLOOD ORDERABLES Performing Organization Address [facility] Code Phon e Number [phone] [place] [address] LABS (ABNORMAL) Glucose by meter (02/03/2014 6:00 PM CDT) athologist Signature Glucose 140 (H) 60 - 99 POINT OF CARE mg/dL TEST, GLUCOSE Specimen Anatomical Collection Method Collection Time Receive d Time (Source) Location / / Volume Laterality 02/03/2014 6:00 PM 4 6:05 CDT PM CDT Migel Merchant MD LAB - BEAKER POCT Performing Organization Address City/[facility] [...] athologist Signature Potassium 4.7 3.4 - 5.3 [facility] mmol/L CAMPUS LABS Specimen Anatomical Collection Method Collection Time Receive d Time (Source) Location / / Volume Laterality Blood specimen 02/03/2014 1:41 PM 014 1:43 (specimen) CDT PM CDT Caitlin Owens MD LAB - BLOOD ORDERABLES Performing Organization Address City/State/ZIP Code Phon e Number [phone] [place] [address] LABS (ABNORMAL) Hemoglobin (02/03/2014 1:41 PM CDT) P athologist Signature Hemoglobin 9.8 (L) 13.3 - 17.7 [facility] g/dL CAMPUS LABS Specimen Anatomical Collection Method Collection Time Receive d Time (Source) Location / / Volume Laterality Blood specimen 02/03/2014 1:41 PM 2 014 1:43 (specimen) CDT PM CDT Caitlin Oewns MD LAB - BLOOD ORDERABLES Performing Organization Address City/State/ZIP Code Phon e Number [address] [address] [facility] LABS (ABNORMAL) Glucose by meter (02/03/2014 1:10 PM CDT) P athologist Signature Glucose 135 (H) 60 - 99 POINT OF CARE mg/dL TEST, GLUCOSE Specimen Anatomical Collection Method Collection Time Receive d Time (Source) Location / / Volume Laterality 02/03/2014 1:10 PM 4 1:15 CDT PM CDT Migel LARES - BEAJ POCT Performing Organization Address City/[facility] [...] athologist Signature Potassium 4.8 3.4 - 5.3 [facility] mmol/L CAMPUS LABS Specimen Anatomical Collection Method Collection Time Receive d Time (Source) Location / / Volume Laterality Blood specimen 02/03/2014 10:11 4 (specimen) AM CDT 10:23 AM CDT Caitlin Owens MD LAB - BLOOD ORDERABLES Performing Organization Address City/[facility]/ZIP Code Phon e Number [address] LABS (ABNORMAL) Hemoglobin (02/03/2014 10:11 AM CDT) P athologist Signature Hemoglobin 9.7 (L) 13.3 - 17.7 [facility] g/dL [place] [facility] Specimen Anatomical Collection Method Collection Time Receive d Time (Source) Location / / Volume Laterality Blood specimen 02/03/2014 10:11 4 (specimen) AM CDT 10:23 AM CDT Caitlin Owens MD LAB - BLOOD ORDERABLES Performing Organization Address [facility] Phon e Number [address] LABS (ABNORMAL) Glucose by meter (02/03/2014 9:58 AM CDT) P athologist Signature Glucose 168 (H) 60 - 99 POINT OF CARE mg/dL TEST, GLUCOSE Specimen Anatomical Collection Method Collection Time Receive d Time (Source) Location / / Volume Laterality 02/03/2014 9:58 AM 4 CDT 10:00 AM CDT Migel Merchant MD LAB - BEAKER POCT Performing Organization Address City/[facility] [...] POCT Performing Organization Address City/[facility] [...] LARES - ROBERT POCT Performing Organization Address City/[facility] [...] LARES - ROBERT POCT Performing Organization Address City/[facility] [...] Basic metabolic panel (02/03/2014 5:38 AM CDT) [facility] gist Method Time Signature Sodium 141 133 - 144 [facility] mmol/L [facility] Potassium 4.4 3.4 - 5.3 [facility] mmol/L [facility] Chloride 105 94 - 109 [facility] mmol/L [facility] Carbon Dioxide 20 20 - 32 [facility] mmol/L [facility] Anion Gap 15 6 - 17 [facility] mmol/L [facility] Glucose 170 (H) 60 - 99 [facility] mg/dL [facility] Urea Nitrogen 49 (H) 7 - 30 [facility] mg/dL [facility] Creatinine 6.38 (H) 0.66 - [facility] 1.25 mg/dL [facility] GFR Estimate 9 (L) >60 [facility] mL/min/1.7 [place] m2 [place] [facility] GFR Estimate If 11 (L) >60 [facility] Black mL/min/1.7 [place] m2 [facility]AMPUS LABS Calcium 9.1 8.5 - 10.4 [facility] mg/dL [facility] Specimen Anatomical Collection Method Collection Time Receive d Time (Source) Location / / Volume Laterality Blood specimen 02/03/2014 5:38 AM 014 5:40 (specimen) CDT AM CDT Omaira Chavez PA-C LAB - BLOOD ORDERABLES Performing Organization Address City/[facility]/ZIP Code Phon e Number [facility] [address] LABS (ABNORMAL) Phosphorus (02/03/2014 5:38 AM CDT) P athologist Signature Phosphorus 4.7 (H) 2.5 - 4.5 [facility] [place] mg/dL [place] [facility] Specimen Anatomical Collection Method Collection Time Receive d Time (Source) Location / / Volume Laterality Blood specimen 02/03/2014 5:38 AM 014 5:40 (specimen) CDT AM CDT Omaira Chavez PA-C LAB - BLOOD ORDERABLES Performing Organization Address City/State/ZIP Code Phon e Number [facility] [address] LABS Magnesium (02/03/2014 5:38 AM CDT) P athologist Signature Magnesium 2.0 1.6 - 2.3 [facility] [place] mg/dL [place] [facility] Specimen Anatomical Collection Method Collection Time Receive d Time (Source) Location / / Volume Laterality Blood specimen 02/03/2014 5:38 AM 014 5:40 (specimen) CDT AM CDT Omaira Chavez PA-C LAB - BLOOD ORDERABLES Performing Organization Address City/State/ZIP Code Phon e Number [phone] [place] [address] [facility]) CBC with platelets differential (02/03/2014 5:38 AM CDT) [facility] gist Method Time Signature WBC 13.2 (H) 4.0 - [facility] 11.0 UNIVERSITY 10e9/L CAMPUS LABS RBC Count 3.20 (L) 4.4 - 5.9 [facility] 10e12/L [facility] LABS Hemoglobin 9.9 (L) 13.3 - [facility] 17.7 g/dL [facility] LABS Hematocrit 30.2 (L) 40.0 - [facility] 53.0 % [facility] LABS MCV 94 78 - 100 [facility] fl [facility] LABS MCH 30.9 26.5 - [facility] 33.0 pg [facility] LABS MCHC 32.8 31.5 - [facility] 36.5 g/dL [facility] LABS RDW 14.5 10.0 - [facility] 15.0 % [facility] LABS Platelet Count 108 (L) 150 - 450 [facility] 10e9/L [facility] LABS Diff Method Automated [facility] Method [facility] LABS % Neutrophils 96.9 % [facility] LABS % Lymphocytes 0.7 % [facility] LABS % Monocytes 2.1 % [facility] LABS % Eosinophils 0.0 % [facility] LABS % Basophils 0.1 % [facility] LABS % Immature 0.2 % [facility] Granulocytes [facility] LABS Absolute 12.8 (H) 1.6 - 8.3 [facility] Neutrophil 10e9/L [facility] LABS Absolute 0.1 (L) 0.8 - 5.3 [facility] Lymphocytes 10e9/L [facility] LABS Absolute 0.3 0.0 - 1.3 [facility] Monocytes 10e9/L [facility] LABS Absolute 0.0 0.0 - 0.7 [facility] Eosinophils 10e9/L [facility] LABS Absolute 0.0 0.0 - 0.2 [facility] Basophils 10e9/L [facility] LABS Abs Immature 0.0 0 - 0.4 [facility] Granulocytes 10e9/L [facility] LABS Specimen Anatomical Collection Method Collection Time Receive d Time (Source) Location / / Volume Laterality Blood specimen 02/03/2014 5:38 AM 014 5:40 (specimen) CDT AM CDT Omaira Chavez PA-C LAB - BLOOD ORDERABLES Performing Organization Address City/[facility]/ZIP Code Phon e Number [facility] [address] LABS (ABNORMAL) Hemoglobin A1c (02/03/2014 5:38 AM CDT) Analysis Performed At Patho logist Time Signature Hemoglobin A1C 6.2 (H) 4.3 - 6.0 [facility] Specimen Anatomical Collection Method Collection Time Receive d Time (Source) Location / / Volume Laterality Blood specimen 02/03/2014 5:38 AM 014 5:40 (specimen) CDT AM CDT Caitlin Owens MD LAB - BLOOD ORDERABLES Performing Organization Address City/[facility]/ZIP Code Phon e Number [address] LABS (ABNORMAL) Glucose by meter (02/03/2014 5:05 AM CDT) P athologist Signature Glucose 176 (H) 60 - 99 POINT OF CARE mg/dL TEST, GLUCOSE Specimen Anatomical Collection Method Collection Time Receive d Time (Source) Location / / Volume Laterality 02/03/2014 5:05 AM 4 5:10 CDT AM CDT Migel Merchant MD LAB - BEAKER POCT Performing Organization Address City/[facility] [...] POCT Performing Organization Address City/[facility] [...] POCT Performing Organization Address City/[facility]/ZIP Code Phon e Number [facility] POINT OF CARE TEST, GLUCOSE POINT OF CARE TEST, GLUCOSE Potassium (02/03/2014 1:18 AM CDT) athologist Signature Potassium 4.7 3.4 - 5.3 [facility] mmol/L CAMPUS LABS Specimen Anatomical Collection Method Collection Time Receive d Time (Source) Location / / Volume Laterality Blood specimen 02/03/2014 1:18 AM 014 1:20 (specimen) CDT AM CDT Caitlin Owens MD LAB - BLOOD ORDERABLES Performing Organization Address City/[facility]/ZIP Code Phon e Number [address] [address] [facility] LABS (ABNORMAL) Hemoglobin (02/03/2014 1:18 AM CDT) athologist Signature Hemoglobin 9.8 (L) 13.3 - 17.7 [facility] g/dL [place] LABS Specimen Anatomical Collection Method Collection Time Receive d Time (Source) Location / / Volume Laterality Blood specimen 02/03/2014 1:18 AM 014 1:20 (specimen) CDT AM CDT Caitlin Owens MD LAB - BLOOD ORDERABLES Performing Organization Address City/State/ZIP Code Phon e Number [facility] [address] [place] [address] [facility] LABS (ABNORMAL) Glucose by meter (02/03/2014 [...] POCT Performing Organization Address City/[facility] [...] athologist Signature Phosphorus 4.4 2.5 - 4.5 [facility] mg/dL [place] LABS Specimen Anatomical Collection Method Collection Time Receive d Time (Source) Location / / Volume Laterality Blood specimen 02/02/2014 10:50 4 (specimen) PM CDT 11:06 PM CDT Caitlin Owens MD LAB - BLOOD ORDERABLES Performing Organization Address City/State/ZIP Code Phon e Number [facility] [address] [place] [address] [facility] LABS Magnesium (02/02/2014 10:50 PM CDT) [...] [facility]/ZIP Code Phon e Number [facility] [address] [place] [address] [facility] LABS (ABNORMAL) Basic metabolic panel (02/02/2014 10:50 PM CDT) [facility] Method Time Signature Sodium 138 133 - 144 [facility] mmol/L [facility] LABS Potassium 4.5 3.4 - 5.3 [facility] mmol/L [facility] LABS Chloride 104 94 - 109 [facility] mmol/L [facility] LABS Carbon Dioxide 25 20 - 32 [facility] mmol/L [facility] LABS Anion Gap 10 6 - 17 [facility] mmol/L [facility] LABS Glucose 134 (H) 60 - 99 [facility] mg/dL [facility] LABS Urea Nitrogen 44 (H) 7 - 30 [facility] mg/dL [facility] LABS Creatinine 6.14 (H) 0.66 - [facility] 1.25 mg/dL [facility] LABS GFR Estimate 9 (L) >60 [facility] mL/min/1.7 [place] m2 CAMPUS LABS GFR Estimate If 11 (L) >60 [facility] Black mL/min/1.7 [place] m2 CAMPUS LABS Calcium 8.8 8.5 - 10.4 [facility] mg/dL [facility] LABS Specimen Anatomical Collection Method Collection Time Receive d Time (Source) Location / / Volume Laterality Blood specimen 02/02/2014 10:50 4 (specimen) PM CDT 11:06 PM CDT Caitlin Owens MD LAB - BLOOD ORDERABLES Performing Organization Address City/State/ZIP Code Phon e Number [facility] [address] [place] [address] [facility] LABS (ABNORMAL) CBC with platelets differential (02/02/2014 10:50 PM CDT) Patholo gist Method Time Signature WBC 8.2 4.0 - [facility] 11.0 UNIV[facility]ITY 10e9/L [place] LABS RBC Count 3.34 (L) 4.4 - 5.9 [facility] 10e12/L [facility] LABS Hemoglobin 10.3 (L) 13.3 - [facility] 17.7 g/dL [facility] LABS Hematocrit 30.9 (L) 40.0 - [facility] 53.0 % [facility] LABS MCV 93 78 - 100 [facility] fl [facility] LABS MCH 30.8 26.5 - [facility] 33.0 pg [facility] LABS MCHC 33.3 31.5 - [facility] 36.5 g/dL [facility] LABS RDW 14.3 10.0 - [facility] 15.0 % [facility] LABS Platelet Count 79 (L) 150 - 450 [facility] 10e9/L [facility] LABS Diff Method Automated [facility] Method [facility] LABS % Neutrophils 96.7 % [facility] LABS % Lymphocytes 1.6 % [facility] LABS % Monocytes 1.2 % [facility] % Eosinophils 0.4 % [facility] LABS % Basophils 0.0 % [facility] % Immature 0.1 % [facility] Granulocytes [facility] LABS Absolute 7.9 1.6 - 8.3 [facility] Neutrophil 10e9/L [facility] LABS Absolute 0.1 (L) 0.8 - 5.3 [facility] Lymphocytes 10e9/L [facility] LABS Absolute 0.1 0.0 - 1.3 [facility] Monocytes 10e9/L [facility] LABS Absolute 0.0 0.0 - 0.7 [facility] Eosinophils 10e9/L [facility] LABS Absolute 0.0 0.0 - 0.2 [facility] Basophils 10e9/L [facility] LABS Abs Immature 0.0 0 - 0.4 [facility] Granulocytes 10e9/L [facility] LABS Specimen Anatomical Collection Method Collection Time Receive d Time (Source) Location / / Volume Laterality Blood specimen 02/02/2014 10:50 4 (specimen) PM CDT 11:06 PM CDT Caitlin Owens MD LAB - BLOOD ORDERABLES Performing Organization Address City/State/ZIP Code Phon e Number [facility] [address] [place] [address] [facility] LAB[facility] (ABNORMAL) VENOUS PANEL (02/02/2014 10:09 PM CDT) Patholo gist Method Time Signature Ph Venous 7.31 (L) 7.32 - [facility] 7.43 pH [facility] LABS PCO2 Venous 52 (H) 40 - 50 [facility] mm Hg [facility] LABS PO2 Venous 34 25 - 47 [facility] mm Hg [facility] LABS Bicarbonate 26 21 - 28 [facility] Venous mmol/L [facility] LABS Base Deficit 0.3 mmol/L [facility] Venous [facility] LABS Comment: Reference range: -7.7 to 1.9 FIO2 45 [facility] LABS Sodium 137 133 - 144 mmol/L [facility] LABS Potassium 4.4 3.4 - 5.3 mmol/L [facility] LABS Hemoglobin 10.0 (L) 13.3 - 17.7 g/dL [facility] LABS Glucose 116 (H) 60 - 99 mg/dL [facility] LABS Calcium Ionized Whole Blood 4.8 4.4 - 5.2 mg/dL [facility] LABS Specimen Anatomical Collection Method Collection Time Receive d Time (Source) Location / / Volume Laterality 02/02/2014 10:09 02/02/2014 PM CDT 10:14 PM CDT Migel Merchant MD LAB - BLOOD ORDERABLES Performing Organization Address City/State/ZIP Code Phon e Number [address] LABS (ABNORMAL) Glucose by meter (02/02/2014 [...] Venous 7.35 7.32 - [facility] 7.43 pH [facility] LABS PCO2 Venous 50 40 - 50 mm [facility] Hg [facility] LABS PO2 Venous 46 25 - 47 mm [facility] Hg [facility] LABS Bicarbonate 28 21 - 28 [facility] Venous mmol/L [facility] LABS Base Excess 1.8 mmol/L [facility] Venous [facility] LABS Comment: Reference range: -7.7 to 1.9 FIO2 100% [facility] LABS Sodium 141 133 - 144 mmol/L [facility] LABS Potassium 3.7 3.4 - 5.3 mmol/L [facility] LABS Hemoglobin 10.3 (L) 13.3 - 17.7 g/dL [facility] LABS Glucose 76 60 - 99 mg/dL [facility] LABS Calcium Ionized Whole Blood 4.8 4.4 - 5.2 mg/dL [facility] LABS Specimen Anatomical Collection Method Collection Time Receive d Time (Source) Location / / Volume Laterality 02/02/2014 6:40 PM 4 6:44 CDT PM CDT Migel Merchant MD LAB - BLOOD ORDERABLES Performing Organization Address City/[facility]/ZIP Code Phon e Number [address] [address] [facility] LABS Glucose by meter (02/02/2014 5:11 [...] 3:50 CDT PM CDT Migel Merchant MD [facility] POCT Performing Organization Address City/State/ZIP Code [...] MARYELLEN Blood component (02/02/2014 2:07 PM CDT) [facility] Method Time Signature Unit Number [id number] [facility] LABS Blood Red Blood [facility] Component Cells [facility] Leukocyte [place] LABS Reduced Division 00 [facility] LABS Status of No longer GRATIOT Unit available [facility] 02/06/2014 HOSPITAL LAB 0300 Specimen Anatomical Collection Method Collection Time Receive d Time (Source) Location / / Volume Laterality 02/02/2014 2:07 PM 4 2:10 CDT PM CDT Caitlin Owens MD LABORATORY Performing Organization Address City/[facility]/ZIP Code Phon santino Acevedo [place] [address] [address] [place], [place] [address] [facility] LABS [facility] LAB Blood component (02/02/2014 2:07 PM CDT) [facility] gist Method Time Signature Unit Number [id number] [facility] LABS Blood Red Blood [facility] Component Cells [facility] LABS Reduced Division 00 [facility] LABS Status of No longer GRATIOT Unit available [facility] 02/06/2014 HOSPITAL LAB 0300 Specimen Anatomical Collection Method Collection Time Receive d Time (Source) Location / / Volume Laterality 02/02/2014 2:07 PM 4 2:10 CDT PM CDT Caitlin Owens MD LABORATORY Performing Organization Address City/[facility] Code Phon santino Acevedo [place] [address] [place], [place] [address] [facility] LAB ABO/Rh type and screen (02/02/2014 2:07 PM CDT) [facility] gist Method Time Signature Units Ordered 2 [facility] LABS ABO A [facility] LABS RH(D) Pos [facility] LABS Antibody Neg [facility] Screen [facility] LABS Test Valid [facility] BLOOD BANK Center,Aide LAB w Hospital Specimen 02/05/2014 [facility] BLOOD BANK LAB Crossmatch Red Blood [facility] Cells [facility] LABS Specimen Anatomical Collection Method Collection Time Receive d Time (Source) Location / / Volume Laterality Blood specimen 02/02/2014 2:07 PM 014 2:10 (specimen) CDT PM CDT Caitlin Owens MD LAB - BLOOD BANK TEST ORDER Performing Organization Address City/[facility]/ZIP Code Phon e Number [facility] [address] [place] [address] [facility] LABS [facility] BLOOD BANK LAB (ABNORMAL) Lipid Profile (02/02/2014 2:07 PM CDT) P athologist Signature Cholesterol 135 <200 mg/dL [facility] LABS Comment: LDL Cholesterol is the primary guide to therapy. The NCEP recommends further evaluation of: patients with cholesterol greater than 200 mg/dL if additional risk facto rs are present, cholesterol greater than 240 mg/dL, triglycerides greater than 1 50 mg/dL, or HDL less than 40 mg/dL. Triglycerides 124 0 - 150 mg/dL [facility] LABS HDL Cholesterol 34 (L) >40 mg/dL [facility] LABS LDL Cholesterol Calculated 77 0 - 129 mg/dL [facility] LABS Comment: LDL Cholesterol is the primary guide to therapy: LDL-cholesterol goal in high risk patients is <100 mg/dL and in very high risk patients is <70 mg/dL. VLDL-Cholesterol 25 0 - 30 mg/dL [facility] LABS Cholesterol/HDL Ratio 4.0 0.0 - 5.0 [facility] LABS Specimen Anatomical Collection Method Collection Time Receive d Time (Source) Location / / Volume Laterality Blood specimen 02/02/2014 2:07 PM 014 2:08 (specimen) CDT PM CDT Caitlin Owens MD LAB - BLOOD ORDERABLES Performing Organization Address City/[facility]/ZIP Code Phon e Number [facility] [address] [place] [address] [facility] LABS (ABNORMAL) Hemoglobin A1c (02/02/2014 2:07 PM CDT) Analysis Performed At Patho logist Time Signature Hemoglobin A1C 6.2 (H) 4.3 - 6.0 [facility] LABS Specimen Anatomical Collection Method Collection Time Receive d Time (Source) Location / / Volume Laterality Blood specimen 02/02/2014 2:07 PM 014 2:08 (specimen) CDT PM CDT Caitlin Owens MD LAB - BLOOD ORDERABLES Performing Organization Address City/State/ZIP Code Phon e Number [facility] [address] [place] [address] [facility] LABS Hepatitis C antibody (02/02/2014 2:07 PM CDT) [facility] Signature Hepatitis C Negative NEG [facility] Antibody MICROBIOLOGY Specimen Anatomical Collection Method Collection Time Receive d Time (Source) Location / / Volume Laterality Blood specimen 02/02/2014 2:07 PM 02/02/2 014 2:08 (specimen) CDT PM CDT Caitlin Owens MD LAB - BLOOD ORDERABLES Performing Organization Address City/[facility]/ZIP Code Phon e Number [facility] [address] [place] [address] [facility] MICROBIOLOGY Hepatitis B core antibody IgM (02/02/2014 2:07 PM CDT) [facility] Signature Hepatitis B Negative NEG [facility] Core IgM MICROBIOLOGY Specimen Anatomical Collection Method Collection Time Receive d Time (Source) Location / / Volume Laterality Blood specimen 02/02/2014 2:07 PM 014 2:08 (specimen) CDT PM CDT Caitlin Owens MD LAB - BLOOD ORDERABLES Performing Organization Address City/State/ZIP Code Phon e Number [facility] [address] [place], [place] [id number] [place] [address] MICROBIOLOGY Hepatitis B surface antigen (02/02/2014 2:07 PM CDT) [facility] Signature Hep B Surface Negative NEG [facility] Agn MICROBIOLOGY Specimen Anatomical Collection Method Collection Time Receive d Time (Source) Location / / Volume Laterality Blood specimen 02/02/2014 2:07 PM 014 2:08 (specimen) CDT PM CDT Caitlin Owens MD LAB - BLOOD ORDERABLES Performing Organization Address City/[facility]/ZIP Code Phon e Number [facility] [address] [place], [place] [id number] [place] [address] MICROBIOLOGY HIV Antigen Antibody Combo (02/02/2014 2:07 PM CDT) [facility] Signature HIV Antigen Nonreactive NR [facility] Antibody HIV-1 p24 Ag & HIV-1/HIV-2 Ab Not Detected [facility] LABS Specimen Anatomical Collection Method Collection Time Receive d Time (Source) Location / / Volume Laterality Blood specimen 02/02/2014 2:07 PM 014 2:08 (specimen) CDT PM CDT Caitlin Owens MD LAB - BLOOD ORDERABLES Performing Organization Address City/[facility]/ZIP Code Phon e Number [address] LABS EBV Capsid Antibody IgM (02/02/2014 2:07 PM CDT) [facility] Method Time Signature EBV Capsid <0.2 0.0 - 0.8 [facility] Antibody IgM No detectable antibody. AI [facility] LABS Specimen Anatomical Collection Method Collection Time Receive d Time (Source) Location / / Volume Laterality Blood specimen 02/02/2014 2:07 PM 014 2:08 (specimen) CDT PM CDT Caitlin Owens MD LAB - BLOOD ORDERABLES Performing Organization Address [facility] Code Phon e Number [address] LABS (ABNORMAL) EBV Capsid Antibody IgG (02/02/2014 2:07 PM CDT) [facility] Method Time Signature EBV Capsid >8.0 0.0 - 0.8 [facility] Antibody IgG Positive, suggests recent or past exposure [facility] [place] LABS Specimen Anatomical Collection Method Collection Time Receive d Time (Source) Location / / Volume Laterality Blood specimen 02/02/2014 2:07 PM 014 2:08 (specimen) CDT PM CDT Caitlin Owens MD LAB - BLOOD ORDERABLES Performing Organization Address City/[facility]/ZIP Code Phon e Number [address] LABS CMV antibody IgM (02/02/2014 2:07 PM CDT) Analysis Performed At [facility] Time Signature CMV Antibody <0.2 0.0 - 0.8 [facility] IgM Negative [facility] LABS Specimen Anatomical Collection Method Collection Time Receive d Time (Source) Location / / Volume Laterality Blood specimen 02/02/2014 2:07 PM 014 2:08 (specimen) CDT PM CDT Caitlin Owens MD LAB - BLOOD ORDERABLES Performing Organization Address City/[facility]/[place] [address] [facility] LABS (ABNORMAL) CMV Antibody IgG (02/02/2014 2:07 PM CDT) P athologist Signature CMV Antibody 7.8 (H) 0.0 - 0.8 [facility] IgG AI [facility] LABS Comment: Positive Specimen Anatomical Collection Method Collection Time Receive d Time (Source) Location / / Volume Laterality Blood specimen 02/02/2014 2:07 PM 014 2:08 (specimen) CDT PM CDT Caitlin Owens MD LAB - BLOOD ORDERABLES Performing Organization Address City/State/ZIP Code Phon e Number [facility] [address] [place] [address] [facility] LABS (ABNORMAL) Comprehensive metabolic panel (02/02/2014 2:07 PM CDT) Patholo gist Method Time Signature Sodium 141 133 - 144 [facility] mmol/L [facility] LABS Potassium 4.2 3.4 - 5.3 [facility] mmol/L [facility] LABS Chloride 101 94 - 109 [facility] mmol/L [facility] LABS Carbon Dioxide 26 20 - 32 [facility] mmol/L [facility] LABS Anion Gap 13 6 - 17 [facility] mmol/L [facility] LABS Glucose 112 (H) 60 - 99 [facility] mg/dL [facility] LABS Urea Nitrogen 42 (H) 7 - 30 [facility] mg/dL [facility] LABS Creatinine 6.03 (H) 0.66 - [facility] 1.25 UNIVERSITY mg/dL CAMPUS LABS GFR Estimate 9 (L) >60 [facility] mL/min/1. [address] LABS GFR Estimate If 11 (L) >60 [facility] Black mL/min/1. [address] LABS Calcium 9.9 8.5 - [facility] 10.4 UNIVERSITY mg/dL CAMPUS LABS Bilirubin Total 0.7 0.2 - 1.3 [facility] mg/dL [facility] LABS Albumin 4.2 3.3 - 4.9 [facility] g/dL [facility] LABS Protein Total 7.5 6.8 - 8.8 [facility] g/dL [facility] LABS Alkaline 88 40 - 150 [facility] Phosphatase U/L [facility] LABS ALT 33 0 - 70 [facility] U/L [facility] LABS AST 18 0 - 45 [facility] U/L [facility] LABS Specimen Anatomical Collection Method Collection Time Receive d Time (Source) Location / / Volume Laterality Blood specimen 02/02/2014 2:07 PM 014 2:08 (specimen) CDT PM CDT Caitlin Owens MD LAB - BLOOD ORDERABLES Performing Organization Address City/State/ZIP Code Phon e Number [facility] [address] [place] [address] [facility] LAB[facility] (ABNORMAL) CBC with platelets differential (02/02/2014 2:07 PM CDT) [facility] gist Method Time Signature WBC 6.3 4.0 - [facility] 11.0 UNIVERSITY 10e9/L CAMPUS LABS RBC Count 3.71 (L) 4.4 - 5.9 [facility] 10e12/L [facility] LABS Hemoglobin 11.5 (L) 13.3 - [facility] 17.7 g/dL [facility] LABS Hematocrit 33.7 (L) 40.0 - [facility] 53.0 % [facility] LABS MCV 91 78 - 100 [facility] fl [facility] LABS MCH 31.0 26.5 - [facility] 33.0 pg [facility] LABS MCHC 34.1 31.5 - [facility] 36.5 g/dL [facility] LABS RDW 14.0 10.0 - [facility] 15.0 % [facility] [place] LABS Platelet Count 110 (L) 150 - 450 [facility] 10e9/L [facility] LABS Diff Method Automated [facility] Method [facility] LABS % Neutrophils 52.4 % [facility] LABS % Lymphocytes 32.1 % [facility] LABS % Monocytes 7.9 % [facility] LABS % Eosinophils 7.1 % [facility] LABS % Basophils 0.3 % [facility] LABS % Immature 0.2 % [facility] Granulocytes [facility] LABS Absolute 3.3 1.6 - 8.3 [facility] Neutrophil 10e9/L [facility] LABS Absolute 2.0 0.8 - 5.3 [facility] Lymphocytes 10e9/L [facility] LABS Absolute 0.5 0.0 - 1.3 [facility] Monocytes 10e9/L [facility] LAB[facility] Absolute 0.5 0.0 - 0.7 [facility] Eosinophils 10e9/L [facility] LAB[facility] Absolute 0.0 0.0 - 0.2 [facility] Basophils 10e9/L [facility] Abs Immature 0.0 0 - 0.4 [facility] Granulocytes 10e9/L [facility] LABS Specimen Anatomical Collection Method Collection Time Receive d Time (Source) Location / / Volume Laterality Blood specimen 02/02/2014 2:07 PM 014 2:08 (specimen) CDT PM CDT Caitlin Owens MD LAB - BLOOD ORDERABLES Performing Organization Address City/[facility]/ZIP Code Phon e Number [address] LABS Creatinine urine calculation only (02/02/2014 2:00 PM CDT) P athologist Signature Creatinine 88 mg/dL [facility] Urine [place] [facility] Specimen Anatomical Collection Method Collection Time Receive d Time (Source) Location / / Volume Laterality 02/02/2014 2:00 PM 4 2:12 CDT PM CDT Caitlin Owens MD LAB - URINE ORDERABLES Performing Organization Address City/[facility] Phon e Number [address] LABS (ABNORMAL) Urine culture (02/02/2014 2:00 PM CDT) Component Value Ref Test Analysis Performed At [facility] Range Method Time Signature Specimen Midstream Urine [facility] Description [facility] Special Specimen received [facility] Requests in preservative MICROBIOLOGY Culture Micro <10,000 colonies/mL Gram pos itive cocci No further identification Susceptibility [facility] testing not routinely done CO CROBIOLOGY <10,000 colonies/mL Strain 2 Gram positive [...] ES Performing Organization Address City/[facility]/ZIP Code Phon e Number [address] LABS [facility] MICROBIOLOGY (ABNORMAL) Protein random urine (02/02/2014 2:00 PM CDT) [facility] [employer] Method Time Signature Protein Random 1.89 g/L [facility] Urine [facility] LABS Protein Total 2.15 (H) 0 - 0.2 [facility] Urine g/gr g/g Cr [facility] LABS Specimen Anatomical Collection Method Collection Time Receive d Time (Source) Location / / Volume Laterality Urine specimen URINE SPECIMEN 02/02/2014 2:00 PM 02/02 2:12 (specimen) OBTAINED BY CLEAN CDT PM CDT CATCH PROCEDURE / Unknown Caitlin Owens MD LAB - URINE ORDERABLES Performing Organization Address City/[facility]/ZIP Code Phon e Number [address] LABS (ABNORMAL) Routine UA with microscopic (02/02/2014 2:00 PM CDT) Patholo gist Method Time Signature Color Urine Light Yellow [facility] LABS Appearance Urine Clear [facility] LABS Glucose Urine 70 (A) NEG mg/dL [facility] LABS Bilirubin Urine Negative NEG [facility] LABS Ketones Urine Negative NEG mg/dL [facility] [place] LAB[facility] Specific [place] 1.008 1.003 - [facility] Urine 1.035 UNIVERSITY [...] CAMPUS LABS Source Clean catch [facility] urine [facility] LABS WBC Urine 1 0 - 2 [...] LAB - URINE ORDERABLES Performing Organization Address City/[facility]/ZIP Code Phon e Number [facility] [address] [place] [address] [facility] LABS (ABNORMAL) Glucose by meter (02/02/2014 1:59 PM CDT) P athologist Signature Glucose 115 (H) 60 - 99 POINT OF CARE mg/dL TEST, GLUCOSE Specimen Anatomical Collection Method Collection Time Receive d Time (Source) Location / / Volume Laterality 02/02/2014 1:59 PM 4 2:05 CDT PM CDT Migel Merchant MD LAB - BEAKER POCT Performing Organization Address City/[facility]/ZIP Code Phon e Number [facility] POINT OF CARE TEST, GLUCOSE POINT OF CARE TEST, GLUCOSE EKG 12-lead, tracing only (02/02/2014 1:58 PM CDT) [facility] gist Method Time Signature Interpretation ECG Click View RADIOLOGY Image link RESULTS to view waveform and result Specimen (Source) Anatomical Collection Method Collection Time Re ceived Time Location / / Volume Laterality 02/02/2014 1:58 PM CDT Caitlin Owens MD ECG ORDERABLES Performing Organization Address [facility] Phon e Number RADIOLOGY RESULTS documented in [...] dose, When verbally ordered by the prescriber. Remington throat with 1-4 sprays 5 minutes prior [...] 11:15 PM CDT 0.4 mg HYDROmorphone (DILAUDID) RN SHIFT MGR 1 mg/mL Shift Total 02/03/2014 6:24 AM CDT RN SHIFT MGR dose (mg): 0.1, Max RN SHIFT MGR dose (mg): 0.2, Lockout Interval (min): 10 minutes, RN SHIFT MGR Continuous Rate (mg/hr): CONTINUOUS RATE IS NOT [...] 5 mg, Oral, ONCE AT 6PM, On Tue02/05/14 at 1800, For 1 dose warfarin (COUMADIN) tablet 5 mg Given 02/07/2014 6:20 PM CDT 5 mg 5 mg, Oral, ONCE AT 6PM, On Tue02/07/14 at 1800, For 1 dose documented in [...] dose, When verbally ordered by the prescriber. Remington throat with 1-4 sprays 5 minutes prior to procedure in the [facility] procedure room , Cardiac Intra-procedure clotrimazole (MYCELEX) lozenge 10 mg 1205 (Given - Pro vider: Ganesh Covarrubias RN)1335 (Given - Provider: Ganesh Covarrubias RN)1952 (Given - Provider: Annmarie Colby RN) 0837 (Given - Provider: Lashaun Braswell RN)1347 (Given - Provider: Lashaun Braswell RN)2005 (Given - Provider: Annmarie Colby, BOGDAN) 0809 [...] Lashaun Braswell RN) 20 mg, Intravenous, ONCE, On Tue02/07/14 at 1100, For 1 dose insulin aspart (NovoLOG) injection (RAPID ACTING) (CAN CELED) 1206 (Given - Provider: Ganesh Covarrubias RN)1840 (Given - Provider: Lashaun Braswell RN) 0844 (Given - Provider: Lashaun Braswell RN)1343 (Given - Provider: Lashaun Braswell RN)1924 (Given - Provider: Annmarie Colby RN) [...] Braswell, BOGDAN) 0838 (Given - Provider: Lashaun Braswell RN)1820 (Given - Provider: Lashaun Braswell, BOGDAN) [...] Ganesh Covarrubias RN) 0835 (Given - Provider: Lahsaun Braswell, BOGDAN) 0809 (Given - Provider: Amanda [...] Colby RN)0810 (Not Given - Provider: Amanda Hernandez, BOGDAN - Reason: Other) 10 mL, Intravenous, EVERY [...] 0809 (Given - Provider: Amanda Hernandez, BOGDAN) Routine, 1 tablet, Oral, DAILY, First do se (after last modification) on Tue02/07/14 at 1200, Indications: PCP prophylaxis tacrolimus (Prograf BRAND) capsule 1.5 mg 2028 (Not Gi isael - Provider: Lynne Gatica [facility] - Reason: Other - Comment: [...] Hodgson, BOGDAN)0610 (Stopped - Provider: Farideh Hodgson, BOGDAN) Intravenous, CONTINUOUS, Starting on Tue02/05/14 at 1115, [...] Farideh Hodgson, RN)1345 (Given - Provider: Ganesh Covarrubias, RN)1955 (Given - Provider: Annmarie Colby, BOGDAN) [...] post meds or blood draw, Starting on 02/03/14 at 0055, to flush CVC - Open Ended (Tunneled and Non- Tunneled). 10 mL post IV meds; 20 mL post blood draw. documented in this encounter Care Teams Honey Grader And Blender Relationship Specialty Start Date End Date Momo Forbes PCP - General [facility] Practice 01/02/14 [place] [id number] Ingrid Santana, RN Registered Nurse Transplant 02/10/12 documented as of this encounter
--- OUTSIDE RECORDS SUMMARY | 2022-05-21 13:27 | XMS_ITS | Encounter Summary ---
:1950 Author Organization [place] Address [facility]0 [facility] [place] [address] Care Team Providers Name Role Phone Ingrid Santana RN Unavailable Unavailable Momo Forbes Primary Care Provider Reason for Visit Reason Comments Transplant Donor culture results Encounter Details Date Type Department Care Team Description 02/04/2014 Documentation Only The Transplant Gladis Yeboah, Transplant (Donor 2nd Floor, Clinic 2A RN culture results) [address] [place] [phone] Social History Tobacco Use Types Packs/Day Years [...] and urine cultures have been uploaded into [facility]. Notification sent to Dr. Rust and Dr. Hernandes. documented in this encounter Plan of Treatment Not on filedocumented as of this encounter Visit Diagnoses Not on filedocumented in this encounter Care Teams Customer Specialist Relationship Specialty Start Date End Date Momo Forbes PCP - General Family Practice 01/02/14 [place] [phone] Ingrid Santana, RN Registered Nurse Transplant 02/10/12 documented as of this encounter
--- OUTSIDE RECORDS SUMMARY | 2022-05-21 13:27 | XMS_ITS | Encounter Summary ---
:1950 Author Organization [place] Address [address] [place] [address] Care Team Providers Name Role Phone Ingrid Santana RN Unavailable Unavailable Momo Forbes Primary Care Provider Encounter Details Date Type Department Care Team Description 02/02/2014 Results Only LABORATORY RESULTS Migel Merchant MD [address] [facility] [address] [place] [address] (Wo rk) Social History Tobacco [...] I Single Antigen (02/02/2014 6:51 PM CDT) [facility] Method Time Signature SA1 Test SA [...] Phon e Number [facility] LABORATORY Immunology/Histocompatabil [place], [place] [address] ity [facility] [address] [facility] [address], Room 3-580 HISTOTRAC documented in this encounter Visit Diagnoses Not on filedocumented in this encounter Care Teams Research Dairy Farm Supervisor Relationship Specialty Start Date End Date Momo Forbes PCP - General Family Practice 01/02/14 [facility] [address] [place] [address] Ingrid Santana, RN Registered Nurse Transplant 02/10/12 documented as of this encounter
--- OUTSIDE RECORDS SUMMARY | 2022-05-21 13:27 | XMS_ITS | Encounter Summary ---
:1950 Author Organization [place] Address [address] [place] [address]. [place] [address] Care Team Providers Name Role Phone Ingrid Santana RN Unavailable Unavailable Moom Forbes Primary Care Provider Encounter Details Date Type Department Care Team Description 02/02/2014 Abstract The Transplant [facility] r 2nd Floor, Clinic 2A [place] [phone] Social History Tobacco Use Types Packs/Day [...] filedocumented in this encounter Care Teams Master Black Belt Relationship Specialty Start Date End Date Momo Forbes PCP - General Family Practice 01/02/14 [facility] [address] [place] [address] Ingrid Santana RN Registered Nurse Transplant 02/10/12 documented as of this encounter
--- OUTSIDE RECORDS SUMMARY | 2022-05-21 13:27 | XMS_ITS | Encounter Summary ---
:1950 Author Organization [place] Address [address] [place] [address]. [place] [address] Care Team Providers Name Role Phone Ingrid Santana RN Unavailable Unavailable Momo Forbes Primary Care Provider Reason for Visit Auth/Cert - Closed Specialty Diagnoses / Procedures Referred By Contact Refer red To Contact Med Surg Diagnoses end stage renal disease dialysis End stage renal failure on dialysis Renal Failure Uu U7a Procedures TRANSPLANT K[facility] RECIPIENT DONOR [address] [place] [address] Phone: Referral ID Status Reason Start Date Expiration Date Visits Requ ested Visits Authorized [id number] Closed 02/04/2014 08/03/2014 1 1 Encounter Details Date Type Department Care Team Description 02/02/2014 Anesthesia Event [facility] Joseph Ivey MD XXX RESIGNED XXX [address] [place] [address] PeriOp Services Leigh Ann Blank MD [address] [facility] [address] [place], [place] [address] [address] [place] [address] Anesthesia Record Procedure Summary Procedure [...] Hand Inez Mckeon Sara E RN Saima, CHECKERING MACHINE OPERATOR RETIRED ETT 02/02/14; 1753; Airway 02/02/14 [...] 02/03/14 0559 by Left; Lower forearm Myriam Mandujano DO Paszkiewic z, Danielle, RN Urethral Catheter 02/02/14; 1800; No; 02/02/14 1800 by 02/05/14 1505 by Strict 1-2 Hour I&O, Rubi Bartholomew RN [place], Danielle Deep Sedation/Paralysis, M, RN Anesthesia CVC Triple Lumen 02/02/14; 1815 02/02/14 1815 by 04/01/14 0922 by Myriam Mandujano DO Ngekia, Fatima S, RN Closed/Suction Drain 02/02/14; 2146; 1; 02/02/14 2146 by 4 0921 by Right; RLQ; Bulb; 19 Levon Chappell RN Ngekia, Fatima S, French RN documented [...] Take 1 tablet by mouth daily. B blzgois-R-pfdwt acid (NEPHROCAPS) 1 MG capsule Take 1 [...] benefits and alternatives discussed with: patient or branch customer service representative. Possibility of blood products discussed. I [...] plan were discussed with patient/family or family branch customer service representative. All questions were answered and there was agreement to proceed. History & Physical Review Leigh Ann Blank MD Anesthesiology [phone] 2:47 PM February 02, 2014 Digeo Guthrie was seen and examined and the medical history was reviewed with him. The anesthetic plan was discussed, risks were explained and questions were answered. He agrees to proceed as discussed. I have reviewed this note and agree with the assessment and plan. Joseph Ivey M.D. Staff Anesthesiologist [phone] 02/02/2014 4:48 PM documented in this encounter [...] Date/Time Associated Diagnosis Comme nts FV AN IA PA CENTRAL Routine 02/02/2014 6:19 PM Re sults for this LINE CATHETER CDT procedure are in PROCEDURE the results section. documented in this encounter Results Central line catheter placement (02/02/2014 6:19 PM CDT) Narrative Myriam Mandujano DO - 02/02/2014 6:19 PM C DT Myriam Mandujano, DO ? 02/02/2014 ??6:19 PM PROCEDURE NOTE Pre-Procedure [...] passed easily into [facility]. Hyunnarm Nazia DO [place] ANESTHESIA documented in this encounter Visit Diagnoses [...] Intra-op documented in this encounter Care Teams Book Cutter Relationship Specialty Start Date End Date Momo Forbes PCP - General Family Practice 01/02/14 [facility] [address] [place] [phone] Ingrid Santana, RN Registered Nurse Transplant 02/10/12 documented as of this encounter
--- OUTSIDE RECORDS SUMMARY | 2022-05-21 13:27 | XMS_ITS | Encounter Summary ---
:1950 Author Organization [place] Address [facility]0 [facility] [place] [address] Care Team Providers Name Role Phone Ingrid Santana RN Unavailable Unavailable Momo Forbes Primary Care Provider Reason for Visit Reason Comments Transplant Encounter Details Date Type Department Care Team Description 02/02/2014 Orders Only Transplant Surgery [place], End stage renal failure Clinic BOGDAN Mae on dialysis (H) 2nd Floor, Clinic 2A (Primary Dx) Tommy [address] [phone] Social History Tobacco Use Types Packs/Day Years [...] disease documented in this encounter Care Teams Doorkeeper Relationship Specialty Start Date End Date Momo Forbes PCP - General Family Practice 01/02/14 [place] [phone] Ingrid Santana, RN Registered Nurse Transplant 02/10/12 documented as of this encounter
--- OUTSIDE RECORDS SUMMARY | 2022-05-21 13:27 | XMS_ITS | Encounter Summary ---
:1950 Author Organization [place] Address [address] [place] [address] Care Team Providers Name Role Phone Ingrid Santana RN Unavailable Unavailable Momo Forbes Primary Care Provider Encounter Details Date Type Department Care Team Description 02/02/2014 Results Only LABORATORY RESULTS Migel Merchant MD [address] [facility] [address] [place] [address] (Wo rk) Social History Tobacco [...] II Single Antigen (02/02/2014 6:51 PM CDT) [facility] Method Time Signature SA2 Test [...] Phon e Number [facility] HLA LABORATORY Immunology/Histocompatabil [place], [place] [address] [facility] [address] [facility] [address] Building, Room 3-580 HISTOTRAC documented in this encounter Visit Diagnoses Not on filedocumented in this encounter Care Teams Reciprocating Drill Operator Relationship Specialty Start Date End Date Momo Forbes PCP - General Family Practice 01/02/14 [facility] [address] [place] [address] Ingrid Santana, RN Registered Nurse Transplant 02/10/12 documented as of this encounter
--- OUTSIDE RECORDS SUMMARY | 2022-05-21 13:28 | XMS_ITS | Encounter Summary ---
:1950 Author Organization [facility] Address [address] [place] [address] Care Team Providers Name Role Phone Ingrid Santana RN Unavailable Unavailable Momo Forbes Primary Care Provider Reason for Visit Auth/Cert - Closed Specialty Diagnoses / Procedures Referred By Contact Refer red To Contact Med Surg Diagnoses end stage renal disease dialysis End stage renal failure on dialysis Renal Failure Uu U7a Procedures TRANSPLANT KIDNEY RECIPIENT DONOR [address] [place] [address] Phone: Referral ID Status Reason Start Date Expiration Date Visits Requ ested Visits Authorized [id number] Closed 02/04/2014 08/03/2014 1 1 Encounter Details Date Type Department Care Team Description 02/02/2014 Surgery [facility] Migel Merchant , Kidney Transplant , PeriOp Services ureteral stent [address] [place] [address] [place] [address] [place], [place] [id number] (Wo rk) Surgery Details Date/Time Status Location [...] Physician Discharge Summary Patient ID: Diego Guthrie [id number] 63 year old 1950 Admit date: 02/02/2014 [...] Take 1 tablet by mouth daily. B lhvscbs-I-dpzdi acid (NEPHROCAPS) 1 MG capsule Take 1 [...] located on the second floor of the [facility] next to the Transplant Clinic. [...] of these appointments you will meetwith a mold preparer and meet your building services coordinator. Your nurse will also be in communication with your surgeon and mold preparer as needed. The direct number to the [facility] is [phone]. In the [facility] [...] the hospital. This will be located in [facility] transplant surgery clinic on the second floor.Your transplant surgeon is: Dr. Merchant. You have a ureteral stent in place which needs to be removed in 4-6 weeks. If a records coordinator does not contact you for this, please contact your building services coordinator. If you have modesta in place, they will be removed in 3 weeks after operation. Notify your coordinator if you have pain over your kidney, fever greater than 101.5F, or decreased urine output. Notify your coordinator immediately if you are ever unable to take your immunosuppressive medications for any reason. Manager Field Services [phone] Diet recommendations post-transplant: Heart healthy dietary habits psych nurse (low saturated/trans fat, low sodium). High protein diet x 8 weeks. Practice food safety precautions - no fish/seafood x 3 weeks. Discharge nurse--please fax discharge orders to [facility] and to his PCP with INR level and warfarin doses --done 6.. bmp documented in this encounter Medications at [...] >2. He can be seen by any mercantile reporter in the outpatient setting for coordination. Continue metoprolol 25 po bid until he is r e-evaluated. We did attempt inpatient REFUGIO guided cardioversion, but the patient developed significant bleeding while on heparin. José Miguel Alvarez M.D. Investigative Research Specialist Joseph Quintana MD - 02/08/2014 12:35 PM [...] Dr. Quintana. Sina Robison MD Nephrology Fellow [phone] Attestation: This patient has been seen and [...] displayed. CBC Recent Labs Lab 02/08/14 0642 02/07/14 0423 02/06/14 1659 02/06/14 0557 02/05/14 1204 HGB [...] Ramires RN - 02/07/2014 2:25 PM CDT [employer] D: Diego Guthrie 63 year old male POD #5 s/p DDKT for ESRD 2/[address] Diaz note today. Per Dr Diaz, pt will most likely be ready for d/c to home tomorrow and will return to [facility] for 5 days at 0700. Pt [...] him. Pt does not know where the [facility] or transplant clinic is, I told him and he replied I will find it. Pt does not care which N agency will follow him--There are only 2 to choose from, so [facility] [phone]/ --I called and left a message with Estrella Fletcher and I fax'd his records tothem--pt will need start of care approx Thursday 02/15. Pt is new on warfarin and I called his PCP's office and they have INR nurses Tuesday-Tuesday their fax # is [phone] (when [facility] visits are completed --pt will call main clinic # to schedule INR draws). 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 I verified his address and phone #(is his cell) on the facesheet. Pt has not met his OP career services director: Leandro Kahn, yet--I sent Leandro an in basket message today-with plan. A: possible d/c to home Tuesday P: see above-will follow and will call [facility] to confirm they can [...] Dr. Quintana. Sina Robison MD Nephrology Fellow [phone] Attestation: This patient has been seen and [...] assistance Medical Decision Making: Medium Subsequent visit 13422 (moderate level decision making) PATO/Fellow/Resident Provider: Adeline [...] Rodriguez MD - 02/06/2014 4:25 PM CDT [facility] Cardiology Progress Note I have seen [...] Dr. Quintana. Sina Robison MD Nephrology Fellow [phone] Attestation: This patient has been seen and [...] Dr. Quintana. Sina Robison MD Nephrology Fellow [phone] Attestation: This patient has been seen and [...] REPLACEMENT ONLY ??? insulin (regular) Stopped (02/05/14 6187) hSiva Kahn RN - 02/05/2014 4:47 PM CDT STRAPPING MACHINE OPERATOR NOTE I met with the patient and his yesterday at [facility] PCU-6B (telemetry unit) to discuss transition from inpatient to outpatient care following kidney translantation. 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 He has slow graft function; however, [...] the plan for daily visits to the [facility] for 5 days after discharge followed [...] meet with the patient again in the [facility] following discharge from [facility]. Joseph Rodriguez MD - 02/05/2014 11:16 AM CDT [facility] Cardiology Progress Note I have seen [...] plan for REFUGIO cardioversion tomorrow, NPO at [place] (orders placed) -- continue heparin and initiate [...] 02/02/2014. Pt lives alone in [facility] though reports that his girlfriend in in the process of moving in with him. Pt girlfriend, Tete, will be present when pt returns home but she works pipeline controller. Pt was on dialysis for 2 1/2 years prior to transplant. Pt works independently but reports that he currently has no income coming in. Pt has primary insurancethrough Medicare and Secondary insurance through [employer]. Pt has no co-pays for his immunosuppressants and a high out of pocket cost for Valcyte, SW to look into grants for pt for Valcyte. I: Met with pt to introduce this telegraphic typewriter operator chief and explain sw role and services available while inpatient in the hospital. Asked if pt had any questions or concerns and completed an assessment of psychosocialneeds post transplant. Provided education about expectations and requirements post discharge like fol low up in the [facility]. Pt is unsure yet if he [...] further appropriate needs arise prior to discharge. Roopa Castro, TRAVEL NURSE, SALES MARKET LEADER Indu Calixto MD - 02/05/2014 1:50 AM [...] Adds Type of Visit Initial PT Evaluation Highway Maintainer Highway Maintainer Present no Language Portuguese Living Environment (R) Lives With alone Living Arrangements ([facility]) Home Accessibility no concerns Number of Stairs [...] up when pt is available. CECY Kearns, SALES MARKET LEADER [phone] phone [phone] pager Joseph Quintana MD - 02/04/2014 11:51 [...] Dr. Quintana. Sina Robison MD Nephrology Fellow [phone] Attestation: This patient has been seen and [...] for this basename: PTHI, in the last 96790 hours IRON STUDIES No results found for this basename: IRON, FEB, IRONSAT, THEE, in the last 04596 hours Imaging: All imaging studies reviewed by [...] CMP Recent Labs Lab 02/04/14 0549 02/03/14 22102/03/14 0538 02/02/14 2209 02/02/14 1840 02/02/14 1407 [...] than or equal to 12.0 mlU/mL. Adeline Emily [phone] Attestation: The patient has been seen and [...] donor kidney transplant, with stent on 02/02/14. EXTRUSION DIE CORRECTOR donor. Graft function:uncertain, Cr slightly up. Slow graft fucntion. US kidney 6/15/14 - patent vessels, normal RIs. Immunosuppression management: [...] . Medical Decision Making: Medium Subsequent visit 60409 (moderate level decision making) PATO/Fellow/Resident Provider: Caitlin [...] note and orders. Migel Merchant MD, PhD swatch checker Abdominal Organ Transplantation Carmelita Rosario RN - 02/03/2014 9:38 AM CDT Patient removed from the UNOS waitlist after donor kidney transplant. UNOS ID is [id number]. Rafaela Cardona - 02/03/2014 9:17 AM CDT [...] followed general diet. Patient reports good appetite/intake LOADMASTER, no nutrition issues/concnerns. CURRENT NUTRITION ORDERS - [...] DDKT ASSESSED NUTRITION NEEDS: Estimated Energy Needs: 3304-7211+ kcals (25-30+ Kcal/Kg) Justification: maintenance post-transplant Estimated [...] (6- 8 weeks). Rec follow heart-healthy diet half-way. Implementation Nutrition education: Provided instruction on post-transplant diet with discussion regarding protein sources and high protein needs in acute post-tx phase. Reviewed recommendations to follow low fat/lowsodium diet half-way and discussed heart healthy diet tips. Discussed [...] adjustment. Rafaela Cardona RD, LD Weekend Coverage [phone] Jose Aguirre MD - 02/03/2014 4:57 AM [...] Doing well postoperatively. Pain: Controlled by Dilaudid TELEVISION ACTOR Diet: NPO tonight Volume Status: Borderline low UOP, continue MIVF, 0.9 % NS 500 cc bolus given for low UOP, CVP not accurate, systolic in 100-110 Recheck hemoglobin and potassium normal. Rest of the plan per primary team. Will continue to follow. Jose Aguirre MD PGY-1.................02/03/2014 Surgery Cross Cover Pager:[phone] documented in this encounter H&P Notes Caitlin [...] 1 tablet by mouth daily. ??? B ejkllfy-V-uumqn acid (NEPHROCAPS) 1 MG capsule Take 1 [...] Transplant Fellow, Caitlin Morales MD Surgery Cross-Cover Pager:[phone] Addendum: Donor 59 yo F EXTRUSION DIE CORRECTOR, CVA, h/o HTN, CMV+, EBV+. Kidney bx [...] note and orders. Migel Merchant MD, PhD swatch checker Abdominal Organ Transplantation documented in this encounter Consult Notes Joseph Rodriguez MD - 02/04/2014 11:03 AM CDTAssociated Order(s): CARDIOLOGY IP CONSULT [facility] CARDIOLOGY CONSULT SERVICE INITIAL CONSULT NOTE [...] 1 tablet by mouth daily. ??? 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 2. There is no [...] assessment and plan. José Miguel Alvarez MD Investigative Research Specialist Pager: [phone] February 04, 2014 Kaitlynn Leon MD - 02/03/2014 9:30 AM CDT Nephrology Initial Consult February 03, 2014 Diego Guthrie Date of : 1950 Date of Admission:02/02/2014 Primary care provider: Momo Forbes Requesting physician: Migel Merchant MD ASSESSMENT AND RECOMMENDATIONS: 1. DDKT - EXTRUSION DIE CORRECTOR -59 yo women; slow graft function-no immediate need for dialysis , but may require tomorrow if UO does not pick up worker. We will monitor Induction with Thymo/Cellcept and [...] h/o type 2 Dm, who received DDKT (EXTRUSION DIE CORRECTOR) on 02/02/2014 donor kidney had severe atherosclerotic [...] ??? Cataract iol, rt/lt both eyes MEDICATIONS: LOADMASTER Meds Prior to Admission medications Medication Sig Last Dose Taking? Auth Provider Calcium Carbonate-Vitamin D (CALCIUM + D PO) Take by mouth daily. Reported, Patient lisinopril (PRINIVIL,ZESTRIL) 40 MG tablet Take 40 mg by mouth 2 times daily. Reported, Patient METOPROLOL SUCCINATE PO Take by mouth daily. Reported, Patient aspirin 81 MG tablet Take 1 tablet by mouth daily. Reported, Patient B bvavufa-K-tuxge acid (NEPHROCAPS) 1 MG capsule Take 1 [...] Intravenous Central line Once ??? HYDROmorphone Intravenous TELEVISION ACTOR Infusion Meds ??? 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 Alvin Diego Cardiovascular Disease Fellow [phone] Patient seen and examined by me with [...] Cullen MD, PhD Jarad Cullen MD, PhD [phone] documented in this encounter Nursing Notes Gretta Mary RN - 02/02/2014 11:[address] Owens with Transplant Surgery notified of stat lab results. Magnesium replaced. Dr. Blank with Anesthesia reviewed chest x-ray. CVC not deep enough to give accurate CVP readings, however all lumens aspirate blood well. Patient is ok to transfer to unit 6B per [facility]. documented in this encounter Miscellaneous Notes Plan of Care - Amanda Hernandez RN - 02/08/2014 3:44 PM CDT Problem: IP GENERAL POC-ADULT,OB,BEHAVIORAL FVCPM Goal: Individualization/Patient-Specific Goal (Adult,OB,Behavioral The patient and/or their telecommunications sales representative will achieve their patient-specific goals [...] Card updated. Report called to Saima in [facility]. Left facility accompanied by s.o at 1600. Plan of Care - Amanda Hernandez RN - 02/08/2014 2:13 PM CDT Problem: IP GENERAL POC-ADULT,OB,BEHAVIORAL FVCPM Goal: Individualization/Patient-Specific Goal (Adult,OB,Behavioral The patient and/or their telecommunications sales representative will achieve their patient-specific goals [...] Individualization/Patient-Specific Goal (Adult,OB,Behavioral The patient and/or their telecommunications sales representative will achieve their patient-specific goals [...] Individualization/Patient-Specific Goal (Adult,OB,Behavioral The patient and/or their telecommunications sales representative will achieve their patient-specific goals [...] appetite. BGs elevated, treated w insulin per MAR. Pt voiding good amounts. Suppository given, pt [...] Diet recommendations post-transplant: Heart healthy dietary habits half-way (low saturated/trans fat, low sodium). High protein diet x 8 weeks. Practice food safety precautions - no fish/seafood x 3 weeks. Inez Luevano MS, RD, LD Pager [phone] Pharmacy-Immunosuppression Monitoring - Em Vasquez RPH - 02/07/2014 9:06 AM CDT Tacrolimus Monitoring [...] will continue to follow. Em Vasquez, Pharm.D., [facility] Pager [phone] Plan of Care - Annmarie Colby RN - 02/07/2014 5:11 AM CDT Problem: IP GENERAL POC-ADULT,OB,BEHAVIORAL FVCPM Goal: Individualization/Patient-Specific Goal (Adult,OB,Behavioral The patient and/or their telecommunications sales representative will achieve their patient-specific goals [...] Individualization/Patient-Specific Goal (Adult,OB,Behavioral The patient and/or their telecommunications sales representative will achieve their patient-specific goals [...] increased fluid intake, urine color is becoming entry driver operator( tea color/bloody- >dark sy/tea color). Incisional pain [...] Physical Therapy Goals The patient and/or their telecommunications sales representative will achieve their patient-specific goals [...] Physical Therapy Goals The patient and/or their telecommunications sales representative will achieve their patient-specific goals [...] Individualization/Patient-Specific Goal (Adult,OB,Behavioral The patient and/or their telecommunications sales representative will achieve their patient-specific goals [...] Individualization/Patient-Specific Goal (Adult,OB,Behavioral The patient and/or their telecommunications sales representative will achieve their patient-specific goals [...] Physical Therapy Goals The patient and/or their telecommunications sales representative will achieve their patient-specific goals [...] medical conditions. Patient would like to use [facility] to manage all medications. Medcard: [...] Specialty Pharmacy review: Discussed the benefits of [facility] and Diego has enrolled. Also gave him supplies (blood pressure cuff, thermometer, and pill box) Other concerns: No other concerns at this time. No further questions for this pharmacist. Inez Cox, Student Pharmacist Senior Account Executive [facility] [address] [place] [address] Cayetano Olivera, Pharmacist [facility] [phone] Pharmacy-Anticoagulation Service - [facility] Wright [facility] [...] Individualization/Patient-Specific Goal (Adult,OB,Behavioral The patient and/or their telecommunications sales representative will achieve their patient-specific goals [...] making full sentences. When telegraphic typewriter operator chief came on shift at 8pm patient was [...] Individualization/Patient-Specific Goal (Adult,OB,Behavioral The patient and/or their telecommunications sales representative will achieve their patient-specific goals [...] Physical Therapy Goals The patient and/or their telecommunications sales representative will achieve their patient-specific goals [...] by friend. Pt transferred to chair, VSS, insulation cutter on, oriented to room. Pharmacy-Admission Medication History - Adriana Teresa Whitney, [facility] - 02/04/2014 11:54 AM CDT Admission medication history interview status for the 02/02/2014 admission is complete. See [facility] admission navigator for allergy information, prior to admission medications and immunization status. Medication history interview sources (including written lists, pill bottles, clinic record):Patient Medication history source reliability:Good Primary pharmacy:[facility] phone number: [phone] Changes made to LOADMASTER medication list (reason) Added: Vitamin D 1,000 [...] at Unknown time Yes Reported, Patient B mswrgwp-E-qllau acid (NEPHROCAPS) 1 MG capsule Take 1 [...] Individualization/Patient-Specific Goal (Adult,OB,Behavioral The patient and/or their telecommunications sales representative will achieve their patient-specific goals [...] 45 minutes and remains in A-fib via wire frame dipper. Repeat EKG around 1000 showed continued Afibl. [...] Physical Therapy Goals The patient and/or their telecommunications sales representative will achieve their patient-specific goals related to the plan of care. The patient-specific goals include: PT 7A: HOLD for AM per RN - pt with a-fib this morning. Plan of Care - Alisson Diane RN - 02/04/2014 6:45 AM CDT Problem: IP GENERAL POC-ADULT,OB,BEHAVIORAL FVCPM Goal: Individualization/Patient-Specific Goal (Adult,OB,Behavioral The patient and/or their telecommunications sales representative will achieve their patient-specific goals [...] Individualization/Patient-Specific Goal (Adult,OB,Behavioral The patient and/or their telecommunications sales representative will achieve their patient-specific goals [...] Individualization/Patient-Specific Goal (Adult,OB,Behavioral The patient and/or their telecommunications sales representative will achieve their patient-specific goals related to the plan of care. The patient-specific goals include: 1. Pt will remain hemodynamically stable 2. Pt will have adequate urine output 3. Pt will be free of falls. RD Patient will verbalize understanding of 3 important aspects of post-transplant diet guidelines. PO intake >50% meals TID once diet adv. Report taken from [facility] on 6B; patient transferred to from 6B via wheelchair around 1500. Patientsettled into room, oriented to floor/room and call light. VS taken. Orders released. Continue ordersas written and notify MD with any concerns. Plan of Care - Sofie Christianson RN - 02/03/2014 2:59 PM CDT Problem: IP GENERAL POC-ADULT,OB,BEHAVIORAL FVCPM Goal: Plan of Care Review (Adult,OB,Behavioral) The patient and/or their telecommunications sales representative will communicate an understanding of [...] algorithm 2, 1 unit now. Pt still zliwpyosr8G NC to maintain sats above 90 % [...] urine output and lower blood pressures. Order vd to hold metoprolol, but togive IV lasix 80mg as ordered. Plan of Care - Tasia Andrade RN - 02/03/2014 7:32 AM CDT Problem: IP GENERAL POC-ADULT,OB,BEHAVIORAL FVCPM Goal: Individualization/Patient-Specific Goal (Adult,OB,Behavioral The patient and/or their telecommunications sales representative will achieve their patient-specific goals [...] Intermittent sharp R lower abd pain. Dilaudid TELEVISION ACTOR encouraged, increased to 0.2/10/1.2. R lower abd [...] Continue to monitor. Provider Notification - Tasia Andrade, BOGDAN - 02/03/2014 2:15 AM CDT Surgery crosscover notified of low UOP. At 0200 made 20cc/hr, at 0300 made 30cc/hr. Hydro/red tinged urine. MIVF @ 125/hr. VSS. HR 70s, BPs 100s-120s/60s. No new orders at this time. Will continue to monitor. Plan of Care - Tasia Andrade, BOGDAN - 02/03/2014 12:00 AM CDT Pt arrived to 6B from PACU, s/p DDKT. A&O x3-4. VSS. Hydro/red urine output. Small amt drainage on abd [...] to Type 2 Diabetes. The patient received [facility] offer for a Donor EXTRUSION DIE CORRECTOR (expanded criteria donor) kidney transplant. After discussing [...] The UNOS number of the donor is [id number]. The crossmatch was done prospectively; and the [...] reconstruction. FACULTY SURGEON: Migel Merchant M.D., Ph.D. FELLOW/ROAD ROLLER OPERATOR HOT MIX SURGEON: Caitlin Owens MD fellow ANESTHESIA: None VERIFICATION: Prior to incision, I verified the donor ABO and recipient ABO. After the donor organ arrived to the operating room and prior to anastamosis, I visually verified that the donor identification, blood type, and other vital data were compatible with the recipient. FINDINGS: Donor type: EXTRUSION DIE CORRECTOR (expanded criteria donor) Organ: kidney Graft Injury: [...] Individualization/Patient-Specific Goal (Adult,OB,Behavioral The patient and/or their telecommunications sales representative will achieve their patient-specific goals [...] Individualization/Patient-Specific Goal (Adult,OB,Behavioral The patient and/or their telecommunications sales representative will achieve their patient-specific goals related to the plan of care. The patient-specific goals include: Pt admitted from home for pre-op DD kidney transplant. VSS. BG 115. Pt has left BKA with prosthesis.Pt prefers to keep valuables (wallet, cell phone, clothes) with him in room. Labs, EKG, and xray done. Consent signed with MD. UA/UC sent. Pt needs pre-op shower and [...] AM 4 8:10 CDT AM CDT Migel Merchant MD LAB - ROBERT POCT Performing Organization Address City/State/ZIP Code Phon e Number FV POINT OF CARE TEST, GLUCOSE POINT OF CARE TEST, GLUCOSE Tacrolimus level (02/08/2014 6:42 AM CDT) Patholo gist Method Time Signature Tacrolimus Not Provided [facility] Last Dose [facility] Tacrolimus 10.0 5.0 - [facility] Level 15.0 ug/L [facility] Comment: Tacrolimus Reference Range Kidney Transplant [...] LAB - BLOOD ORDERABLES Performing Organization Address City/[facility]/ZIP Code Phon e Number [address] LABS (ABNORMAL) INR (02/08/2014 6:42 AM CDT) P athologist Signature INR 1.28 (H) 0.86 - 1.14 [facility] LABS Specimen Anatomical Collection Method Collection Time Receive d Time (Source) Location / / Volume Laterality Blood specimen 02/08/2014 6:42 AM 014 6:43 (specimen) CDT AM CDT Omaira Chavez PA-C LAB - BLOOD ORDERABLES Performing Organization Address City/State/ZIP Code Phon e Number [address] LABS (ABNORMAL) Basic metabolic panel (02/08/2014 6:42 AM CDT) Patholo gist Method Time Signature Sodium 144 133 - 144 [facility] mmol/L [facility] LABS Potassium 3.9 3.4 - 5.3 [facility] mmol/L [facility]S Chloride 110 (H) 94 - 109 [facility] mmol/L [facility] Carbon Dioxide 25 20 - 32 [facility] mmol/L [facility] Anion Gap 8 6 - 17 [facility] mmol/L [facility] Glucose 144 (H) 60 - 99 [facility] mg/dL [facility] Urea Nitrogen 66 (H) 7 - 30 [facility] mg/dL [facility] Creatinine 2.38 (H) 0.66 - [facility] 1.25 mg/dL [facility] GFR Estimate 28 (L) >60 [facility] mL/min/1.7 [facility] m2 [place] LABS GFR Estimate If 34 (L) >60 [facility] Black mL/min/1.7 [facility] m2 [facility]AMPUS LABS Calcium 9.4 8.5 - 10.4 [facility] mg/dL [facility] Specimen Anatomical Collection Method Collection Time Receive d Time (Source) Location / / Volume Laterality Blood specimen 02/08/2014 6:42 AM 014 6:43 (specimen) CDT AM CDT Omaira Chavez PA-C LAB - BLOOD ORDERABLES Performing Organization Address City/State/ZIP Code Phon e Number [facility] [address] LABS Phosphorus (02/08/2014 6:42 AM CDT) P athologist Signature Phosphorus 2.5 2.5 - 4.5 [facility] mg/dL [place] LABS Specimen Anatomical Collection Method Collection Time Receive d Time (Source) Location / / Volume Laterality Blood specimen 02/08/2014 6:42 AM 014 6:43 (specimen) CDT AM CDT Omaira Chavez PA-C LAB - BLOOD ORDERABLES Performing Organization Address City/State/ZIP Code Phon e Number [facility] [address] LABS Magnesium (02/08/2014 6:42 AM CDT) P athologist Signature Magnesium 2.2 1.6 - 2.3 [facility] mg/dL [place] LABS Specimen Anatomical Collection Method Collection Time Receive d Time (Source) Location / / Volume Laterality Blood specimen 02/08/2014 6:42 AM 014 6:43 (specimen) CDT AM CDT Omaira Chavez PA-C LAB - BLOOD ORDERABLES Performing Organization Address City/State/ZIP Code Phon e Number [facility] [address] LABS (ABNORMAL) CBC with platelets differential (02/08/2014 6:42 AM CDT) Patholo gist Method Time Signature WBC 4.8 4.0 - [facility] 11.0 [facility] 10e9/L [place] LABS RBC Count 2.56 (L) 4.4 - 5.9 [facility] 10e12/L [facility] Hemoglobin 7.8 (L) 13.3 - [facility] 17.7 g/dL [facility] Hematocrit 23.5 (L) 40.0 - [facility] 53.0 % [facility] MCV 92 78 - 100 [facility] fl [facility] MCH 30.5 26.5 - [facility] 33.0 pg [facility] MCHC 33.2 31.5 - [facility] 36.5 g/dL [facility] RDW 14.5 10.0 - [facility] 15.0 % [facility] Platelet Count 70 (L) 150 - 450 [facility] 10e9/L [facility] Diff Method Automated [facility] Method [facility] % Neutrophils 86.3 % [facility] LABS % Lymphocytes 3.1 % [facility] LABS % Monocytes 9.4 % [facility] LABS % Eosinophils 1.0 % [facility] % Basophils 0.0 % [facility] % Immature 0.2 % [facility] Granulocytes [facility] Absolute 4.1 1.6 - 8.3 [facility] Neutrophil 10e9/L [facility] Absolute 0.2 (L) 0.8 - 5.3 [facility] Lymphocytes 10e9/L [facility] Absolute 0.5 0.0 - 1.3 [facility] Monocytes 10e9/L [facility] Absolute 0.1 0.0 - 0.7 [facility] Eosinophils 10e9/L [facility] Absolute 0.0 0.0 - 0.2 [facility] Basophils 10e9/L [facility] Abs Immature 0.0 0 - 0.4 [facility] Granulocytes 10e9/L [facility] Specimen Anatomical Collection Method Collection Time Receive d Time (Source) Location / / Volume Laterality Blood specimen 02/08/2014 6:42 AM 014 6:43 (specimen) CDT AM CDT Omaira Chavez PA-C LAB - BLOOD ORDERABLES Performing Organization Address City/State/ZIP Code Phon e Number [address] [facility] LABS (ABNORMAL) Glucose by meter (02/07/2014 10:18 PM CDT) P athologist Signature Glucose 233 (H) 60 - 99 POINT OF CARE mg/dL TEST, GLUCOSE Specimen Anatomical Collection Method Collection Time Receive d Time (Source) Location / / Volume Laterality 02/07/2014 10:18 02/07/2014 PM CDT 10:20 PM CDT Migel Merchant MD LAB - BEAKER POCT Performing Organization Address City/[facility] Code Phon e Number FV POINT [...] LAB - BEAJ POCT Performing Organization Address [facility] Phon e Number FV POINT OF [...] LAB - BEAKER POCT Performing Organization Address City/[facility] Code Phon e Number FV POINT [...] LAB - BEAJ POCT Performing Organization Address City/[facility] Phon e Number FV POINT OF [...] GLUCOSE (ABNORMAL) INR (02/07/2014 4:23 AM CDT) P athologist Signature INR 1.25 (H) 0.86 - 1.14 [facility] LABS Specimen Anatomical Collection Method Collection Time Receive d Time (Source) Location / / Volume Laterality Blood specimen 02/07/2014 4:23 AM 014 4:24 (specimen) CDT AM CDT Omaira Chavez PA-C LAB - BLOOD ORDERABLES Performing Organization Address City/State/ZIP Code Phon e Number [id number] [place] [address] LABS (ABNORMAL) Basic metabolic panel (02/07/2014 4:23 AM CDT) [facility] Method Time Signature Sodium 143 133 - 144 [facility] mmol/L [facility] Potassium 4.1 3.4 - 5.3 [facility] mmol/L [facility] Chloride 109 94 - 109 [facility] mmol/L [facility] Carbon Dioxide 24 20 - 32 [facility] mmol/L [facility] Anion Gap 10 6 - 17 [facility] mmol/L [facility] Glucose 185 (H) 60 - 99 [facility] mg/dL [facility] Urea Nitrogen 77 (H) 7 - 30 [facility] mg/dL [facility] Creatinine 3.02 (H) 0.66 - [facility] 1.25 mg/dL [facility] [place] LAB[facility] GFR Estimate 21 (L) >60 [facility] mL/min/1.7 [facility] m2 CAMPUS LABS GFR Estimate If 26 (L) >60 [facility] Black mL/min/1.7 [facility] m2 [facility]AMPUS LABS Calcium 9.3 8.5 - 10.4 [facility] mg/dL [facility] Specimen Anatomical Collection Method Collection Time Receive d Time (Source) Location / / Volume Laterality Blood specimen 02/07/2014 4:23 AM 014 4:24 (specimen) CDT AM CDT Omaira Chavez PA-C LAB - BLOOD ORDERABLES Performing Organization Address City/[facility]/ZIP Code Phon e Number [facility] [address] LABS Phosphorus (02/07/2014 4:23 AM CDT) P athologist Signature Phosphorus 3.5 2.5 - 4.5 [facility] mg/dL [place] LABS Specimen Anatomical Collection Method Collection Time Receive d Time (Source) Location / / Volume Laterality Blood specimen 02/07/2014 4:23 AM 014 4:24 (specimen) CDT AM CDT Omaira Chavez PA-C LAB - BLOOD ORDERABLES Performing Organization Address City/State/ZIP Code Phon e Number [facility] [address] LABS Magnesium (02/07/2014 4:23 AM CDT) P athologist Signature Magnesium 2.1 1.6 - 2.3 [facility] mg/dL [place] LABS Specimen Anatomical Collection Method Collection Time Receive d Time (Source) Location / / Volume Laterality Blood specimen 02/07/2014 4:23 AM 014 4:24 (specimen) CDT AM CDT Omaira Chavez PA-C LAB - BLOOD ORDERABLES Performing Organization Address City/[facility]/ZIP Code Phon e Number [facility] [address] LABS (ABNORMAL) CBC with platelets differential (02/07/2014 4:23 AM CDT) Patholo gist Method Time Signature WBC 2.7 (L) 4.0 - [facility] 11.0 [facility] 10e9/L [place] LABS RBC Count 2.80 (L) 4.4 - 5.9 [facility] 10e12/L [facility] Hemoglobin 8.5 (L) 13.3 - [facility] 17.7 g/dL [facility] Hematocrit 25.8 (L) 40.0 - [facility] 53.0 % [facility] MCV 92 78 - 100 [facility] fl [facility] MCH 30.4 26.5 - [facility] 33.0 pg [facility] MCHC 32.9 31.5 - [facility] 36.5 g/dL [facility] RDW 14.5 10.0 - [facility] 15.0 % [facility] Platelet Count 77 (L) 150 - 450 [facility] 10e9/L [facility] LABS Diff Method Automated [facility] Method [facility] LABS % Neutrophils 87.5 % [facility] LABS % Lymphocytes 3.8 % [facility] LABS % Monocytes 8.7 % [facility] LABS % Eosinophils 0.0 % [facility] % Basophils 0.0 % [facility] % Immature 0.0 % [facility] Granulocytes [facility] Absolute 2.3 1.6 - 8.3 [facility] Neutrophil 10e9/L [facility] Absolute 0.1 (L) 0.8 - 5.3 [facility] Lymphocytes 10e9/L [facility] Absolute 0.2 0.0 - 1.3 [facility] Monocytes 10e9/L [facility] Absolute 0.0 0.0 - 0.7 [facility] Eosinophils 10e9/L [facility] Absolute 0.0 0.0 - 0.2 [facility] Basophils 10e9/L [facility] LAB[facility] Abs Immature 0.0 0 - 0.4 [facility] Granulocytes 10e9/L [facility] LAB[facility] Specimen Anatomical Collection Method Collection Time Receive d Time (Source) Location / / Volume Laterality Blood specimen 02/07/2014 4:23 AM 014 4:24 (specimen) CDT AM CDT Omaira Chavez PA-C LAB - BLOOD ORDERABLES Performing Organization Address City/State/ZIP Code Phon e Number [facility] [address] [place] [address] [facility] LABS (ABNORMAL) Hemoglobin A1c (02/07/2014 4:23 AM CDT) Analysis Performed At Patho logist Time Signature Hemoglobin A1C 6.1 (H) 4.3 - 6.0 [facility] LABS Specimen Anatomical Collection Method Collection Time Receive d Time (Source) Location / / Volume Laterality Blood specimen 02/07/2014 4:23 AM 014 4:24 (specimen) CDT AM CDT Omaira Chavez PA-C LAB - BLOOD ORDERABLES Performing Organization Address City/[facility]/ZIP Code Phon e Number [facility] [address] [place] [address] [facility] LABS (ABNORMAL) Glucose by meter (02/06/2014 10:06 PM CDT) P athologist Signature Glucose 247 (H) 60 - 99 POINT OF CARE mg/dL TEST, GLUCOSE Specimen Anatomical Collection Method Collection Time Receive d Time (Source) Location / / Volume Laterality 02/06/2014 10:06 02/06/2014 PM CDT 10:10 PM CDT Migel LARES - ROBERT POCT Performing Organization Address City/[facility]/ZIP Code Phon e Number FV POINT [...] PM 4 9:15 CDT PM CDT Migel LARES - ROBERT POCT Performing Organization Address City/[facility]/ZIP Code Phon e Number FV POINT [...] 5:36 CDT PM CDT Migel LARES - ROBERT POCT Performing Organization Address City/State/ZIP Code Phon e Number FV POINT OF CARE TEST, GLUCOSE POINT OF CARE TEST, GLUCOSE (ABNORMAL) Hemoglobin (02/06/2014 4:59 PM CDT) P athologist Signature Hemoglobin 8.8 (L) 13.3 - 17.7 [facility] g/dL [place] LABS Specimen Anatomical Collection Method Collection Time Receive d Time (Source) Location / / Volume Laterality Blood specimen 02/06/2014 4:59 PM 014 5:12 (specimen) CDT PM CDT Omaira Chavez PA-C LAB - BLOOD ORDERABLES Performing Organization Address City/[facility]/ZIP Code Phon e Number [address] LABS (ABNORMAL) Glucose by meter (02/06/2014 12:01 PM CDT) P athologist Signature Glucose 181 (H) 60 - 99 POINT OF CARE mg/dL TEST, GLUCOSE Specimen Anatomical Collection Method Collection Time Receive d Time (Source) Location / / Volume Laterality 02/06/2014 12:01 02/06/2014 PM CDT 12:05 PM CDT Migel LARES - ROBERT POCT Performing Organization Address City/[facility]/ZIP Code Phon e Number FV POINT OF CARE TEST, GLUCOSE POINT OF CARE TEST, GLUCOSE (ABNORMAL) Partial thromboplastin time (02/06/2014 5:57 AM CDT) athologist Signature PTT 154 (HH) 22 - 37 sec [facility] LABS Comment: Critical Value called to and read back Whitney Poon RN AT 0642. PW Specimen Anatomical Collection Method Collection Time Receive d Time (Source) Location / / Volume Laterality 02/06/2014 5:57 AM 4 6:03 CDT AM CDT Adeline Diaz MD LAB - BLOOD ORDERABLES Performing Organization Address City/[facility]/ZIP Code Phon e Number [facility] [address] [place], [place] [phone] [place] [address] LABS Heparin Xa (10a) Level (02/06/2014 5:57 [...] LAB - BLOOD ORDERABLES Performing Organization Address City/[facility]/ZIP Code Phon e Number [facility] [address] LABS (ABNORMAL) INR (02/06/2014 5:57 AM CDT) P athologist Signature INR 1.32 (H) 0.86 - 1.14 [facility] LABS Specimen Anatomical Collection Method Collection Time Receive d Time (Source) Location / / Volume Laterality Blood specimen 02/06/2014 5:57 AM 014 6:03 (specimen) CDT AM CDT Omaira Chavez PA-C LAB - BLOOD ORDERABLES Performing Organization Address City/[facility]/ZIP Code Phon e Number [address] LABS (ABNORMAL) Basic metabolic panel (02/06/2014 5:57 AM CDT) Patholo gist Method Time Signature Sodium 142 133 - 144 [facility] mmol/L [facility] LABS Potassium 4.7 3.4 - 5.3 [facility] mmol/L [facility]S Chloride 106 94 - 109 [facility] mmol/L [facility]S Carbon Dioxide 28 20 - 32 [facility] mmol/L [facility]S Anion Gap 8 6 - 17 [facility] mmol/L [facility] Glucose 196 (H) 60 - 99 [facility] mg/dL [facility] LABS Urea Nitrogen 71 (H) 7 - 30 [facility] mg/dL [facility] Creatinine 3.96 (H) 0.66 - [facility] 1.25 mg/dL [facility] LAB[facility] GFR Estimate 15 (L) >60 [facility] mL/min/1.7 [facility] m2 [facility]AMPUS LABS GFR Estimate If 19 (L) >60 [facility] Black mL/min/1.7 [place] [address] CAMPUS LABS Calcium 9.4 8.5 - 10.4 [facility] mg/dL [facility] LABS Specimen Anatomical Collection Method Collection Time Receive d Time (Source) Location / / Volume Laterality Blood specimen 02/06/2014 5:57 AM 014 6:03 (specimen) CDT AM CDT Omaira Chavez PA-C LAB - BLOOD ORDERABLES Performing Organization Address [facility]/ZIP Code Phon e Number [address] LABS Phosphorus (02/06/2014 5:57 AM CDT) P athologist Signature Phosphorus 4.5 2.5 - 4.5 [facility] mg/dL [place] LABS Specimen Anatomical Collection Method Collection Time Receive d Time (Source) Location / / Volume Laterality Blood specimen 02/06/2014 5:57 AM 014 6:03 (specimen) CDT AM CDT Omaira Chavez PA-C LAB - BLOOD ORDERABLES Performing Organization Address City/[facility]/ZIP Code Phon e Number [facility] [address] LABS Magnesium (02/06/2014 5:57 AM CDT) P athologist Signature Magnesium 1.9 1.6 - 2.3 [facility]ERVE mg/dL [place] LABS Specimen Anatomical Collection Method Collection Time Receive d Time (Source) Location / / Volume Laterality Blood specimen 02/06/2014 5:57 AM 014 6:03 (specimen) CDT AM CDT Omaira Yanely Chavez PA-C LAB - BLOOD ORDERABLES Performing Organization Address City/State/ZIP Code Phon e Number [facility] [address] [place] [address] [place] [facility] ([facility]NORMAL) CBC with platelets differential (02/06/2014 5:57 AM CDT) [facility] gist Method Time Signature WBC 5.1 4.0 - [facility] 11.0 [facility]ITY 10e9/L CAMPUS LABS RBC Count 3.13 (L) 4.4 - 5.9 [facility] 10e12/L [facility] LABS Hemoglobin 9.6 (L) 13.3 - [facility] 17.7 g/dL [facility] LABS Hematocrit 29.0 (L) 40.0 - [facility] 53.0 % [facility] LABS MCV 93 78 - 100 [facility] fl [facility] LAB[facility] MCH 30.7 26.5 - [facility] 33.0 pg [facility] MCHC 33.1 31.5 - [facility] 36.5 g/dL [facility]S RDW 14.5 10.0 - [facility] 15.0 % [facility] Platelet Count 85 (L) 150 - 450 [facility] 10e9/L [facility] LABS Diff Method Automated [facility] Method [facility] LABS % Neutrophils 86.0 % [facility] LABS % Lymphocytes 5.1 % [facility]S % Monocytes 8.7 % [facility] LABS % Eosinophils 0.0 % [facility] LABS % Basophils 0.0 % [facility] LABS % Immature 0.2 % [facility] Granulocytes [facility] Absolute 4.4 1.6 - 8.3 [facility] Neutrophil 10e9/L [facility] LABS Absolute 0.3 (L) 0.8 - 5.3 [facility] Lymphocytes 10e9/L [facility] LAB[facility] Absolute 0.4 0.0 - 1.3 [facility] Monocytes 10e9/L [facility] LABS Absolute 0.0 0.0 - 0.7 [facility] Eosinophils 10e9/L [facility] Absolute 0.0 0.0 - 0.2 [facility] Basophils 10e9/L [facility] LABS Abs Immature 0.0 0 - 0.4 [facility] Granulocytes 10e9/L [facility] LABS Specimen Anatomical Collection Method Collection Time Receive d Time (Source) Location / / Volume Laterality Blood specimen 02/06/2014 5:57 AM 014 6:03 (specimen) CDT AM CDT Omaira Chavez PA-C LAB - BLOOD ORDERABLES Performing Organization Address [facility]/ZIP Code Phon e Number [facility] [address] [place] [address] [facility] LABS (ABNORMAL) Lipid panel reflex to direct LDL (02/06/2014 5:57 AM CDT) P athologist Signature Cholesterol 126 <200 mg/dL [facility] LABS Comment: LDL Cholesterol is the primary guide to therapy. The NCEP recommends further evaluation of: patients with cholesterol greater than 200 mg/dL if additional risk facto rs are present, cholesterol greater than 240 mg/dL, triglycerides greater than 1 50 mg/dL, or HDL less than 40 mg/dL. Triglycerides 100 0 - 150 mg/dL [facility] LABS HDL Cholesterol 35 (L) >40 mg/dL [facility] LABS LDL Cholesterol Calculated 71 0 - 129 mg/dL [facility] LABS Comment: LDL Cholesterol is the primary guide to therapy: LDL-cholesterol goal in high risk patients is <100 mg/dL and in very high risk patients is <70 mg/dL. VLDL-Cholesterol 20 0 - 30 mg/dL [facility] Cholesterol/HDL Ratio 3.6 0.0 - 5.0 [facility] Specimen Anatomical Collection Method Collection Time Receive d Time (Source) Location / / Volume Laterality Blood specimen 02/06/2014 5:57 AM 014 6:03 (specimen) CDT AM CDT Omaira Chavez PA-C LAB - BLOOD ORDERABLES Performing Organization Address City/[facility]/ZIP Code Phon e Number [facility] [address] [place] [address] [facility] LABS Tacrolimus level (02/06/2014 5:57 AM CDT) Patholo gist Method Time Signature Tacrolimus S Negative [facility] Last Dose [facility] Tacrolimus 12.7 5.0 - [facility] Level 15.0 ug/L [facility] LABS Comment: Tacrolimus Reference Range Kidney Transplant [...] City/State/[facility] Code Phon e Number [facility] [address] [place], [place] [phone] [place] [address] LABS (ABNORMAL) Glucose by meter (02/06/2014 3:21 [...] athologist Signature Hemoglobin 10.2 (L) 13.3 - [facility] 17.7 g/dL [place] LABS Specimen Anatomical Collection Method Collection Time Receive d Time (Source) Location / / Volume Laterality Blood specimen 02/06/2014 1:02 AM 014 1:11 (specimen) CDT AM CDT Deysi Alicea MD LAB - BLOOD ORDERABLES Performing Organization Address City/State/ZIP Code Phon e Number [facility] [address] [place], [place] [id number] [place] [address] LABS (ABNORMAL) Glucose by meter (02/05/2014 10:23 PM CDT) athologist Signature Glucose 254 (H) 60 - 99 POINT OF CARE mg/dL TEST, GLUCOSE Specimen Anatomical Collection Method Collection Time Receive d Time (Source) Location / / Volume Laterality 02/05/2014 10:23 02/05/2014 PM CDT 10:25 PM CDT Migel Merchant MD LAB - BEAKER POCT Performing Organization Address City/[facility]/ZIP Code Phon e Number FV POINT OF CARE TEST, GLUCOSE POINT OF CARE TEST, GLUCOSE Heparin 10a Level (02/05/2014 7:32 PM CDT) athologist Signature Heparin 10A 0.64 IU/mL [facility] [...] Phon e Number [facility] [address] [place] [address] [facility] LABS (ABNORMAL) Glucose by meter (02/05/2014 6:04 PM CDT) P athologist Signature Glucose 232 (H) 60 - 99 POINT OF CARE mg/dL TEST, GLUCOSE Specimen Anatomical Collection Method Collection Time Receive d Time (Source) Location / / Volume Laterality 02/05/2014 6:04 PM 4 6:10 CDT PM CDT Migel Merchant MD LAB - BEAKER POCT Performing Organization Address City/[facility]/ZIP Code Phon e Number FV POINT [...] LAB - BEAKER POCT Performing Organization Address City/[facility]/ZIP Code Phon e Number FV POINT [...] Signature INR 1.24 (H) 0.86 - 1.14 [facility] LABS Specimen Anatomical Collection Method Collection Time Receive d Time (Source) Location / / Volume Laterality Blood specimen 02/05/2014 12:04 4 (specimen) PM CDT 12:10 PM CDT Teresa Wright [facility] LAB - BLOOD ORDERABLES Performing Organization Address City/State/ZIP Code Phon e Number [phone] [place] [address] LABS (ABNORMAL) CBC with platelets (02/05/2014 12:04 PM CDT) [facility] gist Method Time Signature WBC 7.4 4.0 - 11.0 [facility] 10e9/L [facility] RBC Count 3.31 (L) 4.4 - 5.9 [facility] 10e12/L [facility] Hemoglobin 10.3 (L) 13.3 - [facility] 17.7 g/dL [facility] Hematocrit 31.0 (L) 40.0 - [facility] 53.0 % [facility] MCV 94 78 - 100 [facility] fl [facility] LABS MCH 31.1 26.5 - [facility] 33.0 pg [facility] MCHC 33.2 31.5 - [facility] 36.5 g/dL [facility] RDW 14.7 10.0 - [facility] 15.0 % [facility] Platelet Count 91 (L) 150 - 450 [facility] 10e9/L [facility] Specimen Anatomical Collection Method Collection Time Receive d Time (Source) Location / / Volume Laterality Blood specimen 02/05/2014 12:04 4 (specimen) PM CDT 12:10 PM CDT Omaira Chavez PA-C LAB - BLOOD ORDERABLES Performing Organization Address City/State/ZIP Code Phon e Number [facility] [address] [place] [address] [facility] LABS (ABNORMAL) Glucose by meter (02/05/2014 11:25 AM CDT) P athologist Signature Glucose 190 (H) 60 - 99 POINT OF CARE mg/dL TEST, GLUCOSE Specimen Anatomical Collection Method Collection Time Receive d Time (Source) Location / / Volume Laterality 02/05/2014 11:25 02/05/2014 AM CDT 11:30 AM CDT Migel LARES - ROBERT POCT Performing Organization Address City/[facility]/ZIP Code Phon e Number FV POINT [...] LARES - BEAKER POCT Performing Organization Address City/[facility]/ZIP Code Phon e Number FV POINT [...] Glucose by meter (02/05/2014 8:23 AM CDT) P athologist Signature Glucose 141 (H) 60 - [...] [facility] Carbon Dioxide 25 20 - 32 [facility] mmol/L [facility]S Anion Gap 10 6 - 17 [facility] mmol/L [facility]S Glucose 123 (H) 60 - 99 [facility] mg/dL [facility]S Urea Nitrogen 66 (H) 7 - 30 [facility] mg/dL [facility]S Creatinine 4.77 (H) 0.66 - [facility] 1.25 mg/dL [facility] [place] [facility] GFR Estimate 12 (L) >60 [facility] mL/min/1.7 [facility] m2 CAMPUS LABS GFR Estimate If 15 (L) >60 [facility] Black mL/min/1.7 [place] m2 [facility]AMPUS LABS Calcium 9.4 8.5 - 10.4 [facility] mg/dL [facility] LABS Specimen Anatomical Collection Method Collection Time Receive d Time (Source) Location / / Volume Laterality Blood specimen 02/05/2014 7:02 AM 014 7:05 (specimen) CDT AM CDT Omaira Chavez PA-C LAB - BLOOD ORDERABLES Performing Organization Address City/State/ZIP Code Phon e Number [address] LABS (ABNORMAL) Phosphorus (02/05/2014 7:02 AM [...] Phon e Number [facility] [address] LABS Magnesium (02/05/2014 7:02 AM CDT) P athologist Signature Magnesium 2.0 1.6 - 2.3 [facility] mg/dL [place] LABS Specimen Anatomical Collection Method Collection Time Receive d Time (Source) Location / / Volume Laterality Blood specimen 02/05/2014 7:02 AM 014 7:05 (specimen) CDT AM CDT Omaira Chavez PA-C LAB - BLOOD ORDERABLES Performing Organization Address City/[facility]/ZIP Code Phon e Number [facility] [address] [place], [place] [id number] [place] [address] LABS (ABNORMAL) CBC with platelets differential (02/05/2014 7:02 AM CDT) Patholo gist Method Time Signature WBC 8.9 4.0 - [facility] 11.0 [facility] 10e9/L [place] LABS RBC Count 3.20 (L) 4.4 - 5.9 [facility] 10e12/L [facility]S Hemoglobin 9.7 (L) 13.3 - [facility] 17.7 g/dL [facility]S Hematocrit 30.0 (L) 40.0 - [facility] 53.0 % [facility]S MCV 94 78 - 100 [facility] fl [facility]S MCH 30.3 26.5 - [facility] 33.0 pg [facility] MCHC 32.3 31.5 - [facility] 36.5 g/dL [facility] RDW 14.6 10.0 - [facility] 15.0 % [facility] Platelet Count 96 (L) 150 - 450 [facility] 10e9/L [facility] LABS Diff Method Automated [facility] Method [facility] LABS % Neutrophils 90.2 % [facility] LABS % Lymphocytes 4.4 % [facility] LABS % Monocytes 5.2 % [facility] LABS % Eosinophils 0.0 % [facility] LABS % Basophils 0.0 % [facility] LABS % Immature 0.2 % [facility] Granulocytes [facility]AMP[facility] LABS Absolute 8.1 1.6 - 8.3 [facility] Neutrophil 10e9/L [facility] LABS Absolute 0.4 (L) 0.8 - 5.3 [facility] Lymphocytes 10e9/L [facility] Absolute 0.5 0.0 - 1.3 [facility] Monocytes 10e9/L [facility]S Absolute 0.0 0.0 - 0.7 [facility] Eosinophils 10e9/L [facility] Absolute 0.0 0.0 - 0.2 [facility] Basophils 10e9/L [facility] Abs Immature 0.0 0 - 0.4 [facility] Granulocytes 10e9/L [facility] [place] LABS Specimen Anatomical Collection Method Collection Time Receive d Time (Source) Location / / Volume Laterality Blood specimen 02/05/2014 7:02 AM 014 7:05 (specimen) CDT AM CDT Omaira Chavez PA-C LAB - BLOOD ORDERABLES Performing Organization Address City/[facility] Code Phon e Number [address] LABS (ABNORMAL) Parathormone intact (02/05/2014 7:02 AM CDT) Patholo gist Method Time Signature Parathyroid 362 (H) 12 - 72 [facility] Hormone Intact pg/mL [facility] LABS Specimen Anatomical Collection Method Collection Time Receive d Time (Source) Location / / Volume Laterality Blood specimen 02/05/2014 7:02 AM 014 7:05 (specimen) CDT AM CDT Sina Robison MD LAB - BLOOD ORDERABLES Performing Organization Address City/State/ZIP Code Phon e Number [address] LABS (ABNORMAL) Ferritin (02/05/2014 7:02 AM CDT) P athologist Signature Ferritin 932 (H) 20 - 300 [facility] UNIVERSITY ng/mL CAMPUS LABS Specimen Anatomical Collection Method Collection Time Receive d Time (Source) Location / / Volume Laterality Blood specimen 02/05/2014 7:02 AM 014 7:05 (specimen) CDT AM CDT Sina Robison MD LAB - BLOOD ORDERABLES Performing Organization Address City/State/ZIP Code Phon e Number [address] [place] [address] [facility] LABS (ABNORMAL) Iron and iron binding capacity (02/05/2014 7:02 AM CDT) Analysis Performed At Patho logist Time Signature Iron 119 35 - 180 [facility] ug/dL [facility] LABS Iron Binding 207 (L) 240 - 430 [facility] Cap ug/dL [facility] LABS Iron Saturation 58 (H) 15 - 46 % [facility] Index [facility] LAB[facility] Specimen Anatomical Collection Method Collection Time Receive d Time (Source) Location / / Volume Laterality Blood specimen 02/05/2014 7:02 AM 014 7:05 (specimen) CDT AM CDT Sina Robison MD LAB - BLOOD ORDERABLES Performing Organization Address City/[facility]/ZIP Code Phon e Number [facility] [address] [place] [address] [facility] LABS (ABNORMAL) Glucose by meter (02/05/2014 6:59 AM CDT) athologist Signature Glucose 123 (H) 60 - 99 POINT OF CARE mg/dL TEST, GLUCOSE Specimen Anatomical Collection Method Collection Time Receive d Time (Source) Location / / Volume Laterality 02/05/2014 6:59 AM 4 7:05 CDT AM CDT Migel JONES POCT Performing Organization Address City/[facility]/ZIP Code Phon e Number FV POINT OF CARE TEST, GLUCOSE POINT OF CARE TEST, GLUCOSE (ABNORMAL) Glucose by meter (02/05/2014 6:01 AM CDT) P athologist Signature Glucose 132 (H) 60 - 99 POINT OF CARE mg/dL TEST, GLUCOSE Specimen Anatomical Collection Method Collection Time Receive d Time (Source) Location / / Volume Laterality 02/05/2014 6:01 AM 4 6:05 CDT AM CDT Migel JONES POCT Performing Organization Address City/[facility]/ZIP Code Phon e Number FV POINT [...] LARES - BEAJ POCT Performing Organization Address City/[facility] Code Phon e Number FV POINT [...] LAB - BEAJ POCT Performing Organization Address City/[facility]/ZIP Code Phon e Number FV POINT [...] LAB - BEAJ POCT Performing Organization Address City/[facility]/ZIP Code Phon e Number FV POINT [...] LAB - BEAJ POCT Performing Organization Address [facility] Phon e Number FV POINT OF [...] LAB - BEAJ POCT Performing Organization Address [facility] Phon e Number FV POINT OF [...] Carr MD ECG ORDERABLES Performing Organization Address [facility] Phon e Number RADIOLOGY RESULTS (ABNORMAL) Glucose by meter (02/04/2014 10:56 PM CDT) P athologist Signature Glucose 161 (H) 60 - 99 POINT OF CARE mg/dL TEST, GLUCOSE Specimen Anatomical Collection Method Collection Time Receive d Time (Source) Location / / Volume Laterality 02/04/2014 10:56 02/04/2014 PM CDT 11:00 PM CDT Migel Merchant MD LAB - BEAJ POCT Performing Organization Address [facility] Phon e Number FV POINT OF [...] LAB - BEAKER POCT Performing Organization Address [facility] Phon e Number FV POINT OF [...] LAB - BEAKER POCT Performing Organization Address [facility] Phon e Number FV POINT OF [...] LAB - BEAKER POCT Performing Organization Address [facility] Phon e Number FV POINT OF CARE TEST, GLUCOSE POINT OF CARE TEST, GLUCOSE Troponin I (02/04/2014 7:10 PM CDT) P athologist Signature Troponin I 0.016 0.000 - [facility] 0.034 ug/L [place] LABS Specimen Anatomical Collection Method Collection Time Receive d Time (Source) Location / / Volume Laterality Blood specimen 02/04/2014 7:10 PM 014 7:23 (specimen) CDT PM CDT Adeline Diaz MD LAB - BLOOD ORDERABLES Performing Organization Address City/State/ZIP Code Phon e Number [facility] [address] [place] [address] [facility] LABS (ABNORMAL) Glucose by meter (02/04/2014 7:01 [...] LAB - BEAJ POCT Performing Organization Address City/[facility]/ZIP Code Phon e Number FV POINT [...] athologist Signature Troponin I 0.025 0.000 - [facility] 0.034 ug/L [place] LABS Specimen Anatomical Collection Method Collection Time Receive d Time (Source) Location / / Volume Laterality Blood specimen 02/04/2014 12:42 4 (specimen) PM CDT 12:45 PM CDT Adeline Diaz MD LAB - BLOOD ORDERABLES Performing Organization Address City/[facility]/ZIP Code Phon e Number [facility] [address] [place] [address] [facility] LABS (ABNORMAL) Glucose by meter (02/04/2014 12:27 PM CDT) athologist Signature Glucose 140 (H) 60 - 99 POINT OF CARE mg/dL TEST, GLUCOSE Specimen Anatomical Collection Method Collection Time Receive d Time (Source) Location / / Volume Laterality 02/04/2014 12:27 02/04/2014 PM CDT 12:30 PM CDT Migel Merchant MD LAB - BEAKER POCT Performing Organization Address City/[facility]/ZIP Code Phon e Number FV POINT OF CARE TEST, GLUCOSE POINT OF CARE TEST, GLUCOSE (ABNORMAL) Glucose by meter (02/04/2014 10:56 AM CDT) athologist Signature Glucose 152 (H) 60 - 99 POINT OF CARE mg/dL TEST, GLUCOSE Specimen Anatomical Collection Method Collection Time Receive d Time (Source) Location / / Volume Laterality 02/04/2014 10:56 02/04/2014 AM CDT 11:30 AM CDT Migel Merchant MD LAB - BEAKER POCT Performing Organization Address City/[facility]/ZIP Code Phon e Number FV POINT [...] EKG 12-lead, complete (02/04/2014 9:21 AM CDT) [facility] gist Method Time Signature Interpretation ECG Click View RADIOLOGY Image link RESULTS to view waveform and result Specimen (Source) Anatomical Collection Method Collection Time Re ceived Time Location / / Volume Laterality 02/04/2014 9:21 AM CDT Omaira Chavez PA-C ECG ORDERABLES Performing Organization Address City/[facility]/ZIP Code Phon e Number RADIOLOGY RESULTS (ABNORMAL) Glucose by meter (02/04/2014 9:02 AM CDT) athologist Signature Glucose 203 (H) 60 - 99 POINT OF CARE mg/dL TEST, GLUCOSE Specimen Anatomical Collection Method Collection Time Receive d Time (Source) Location / / Volume Laterality 02/04/2014 9:02 AM 4 9:05 CDT AM CDT Migel LARES - ROBERT POCT Performing Organization Address [facility] Code Phon e Number FV POINT [...] LARES - ROBERT POCT Performing Organization Address City/[facility] Code Phon e Number FV POINT [...] LAB - BEAKER POCT Performing Organization Address City/[facility]/ZIP Code Phon e Number FV POINT [...] Owens MD ECG ORDERABLES Performing Organization Address [facility]/ZIP Code Phon e Number RADIOLOGY RESULTS (ABNORMAL) Glucose by meter (02/04/2014 6:09 AM CDT) athologist Signature Glucose 160 (H) 60 - 99 POINT OF CARE mg/dL TEST, GLUCOSE Specimen Anatomical Collection Method Collection Time Receive d Time (Source) Location / / Volume Laterality 02/04/2014 6:09 AM 4 6:15 CDT AM CDT Migel Merchant MD LAB - BEAKER POCT Performing Organization Address [facility] Phon e Number FV POINT OF CARE TEST, GLUCOSE POINT OF CARE TEST, GLUCOSE Troponin I (02/04/2014 5:49 AM CDT) athologist Signature Troponin I ES <0.012 0.000 - [facility] 0.034 ug/L CAMPUS LABS Specimen Anatomical Collection Method Collection Time Receive d Time (Source) Location / / Volume Laterality 02/04/2014 5:49 AM 4 5:51 CDT AM CDT Caitlin Owens MD LAB - BLOOD ORDERABLES Performing Organization Address City/[facility]/ZIP Code Phon e Number [facility] [address] [place] [address] [facility] LABS (ABNORMAL) Basic metabolic panel (02/04/2014 5:49 AM CDT) Patholo gist Method Time Signature Sodium 142 133 - 144 [facility] mmol/L [facility] LABS Potassium 4.9 3.4 - 5.3 [facility] mmol/L [facility] LABS Chloride 107 94 - 109 [facility] mmol/L [facility] LABS Carbon Dioxide 23 20 - 32 [facility] mmol/L [facility] LABS Anion Gap 12 6 - 17 [facility] mmol/L [facility] LABS Glucose 151 (H) 60 - 99 [facility] mg/dL [facility] LABS Urea Nitrogen 57 (H) 7 - 30 [facility] mg/dL [facility] LABS Creatinine 5.94 (H) 0.66 - [facility] 1.25 mg/dL [facility] LABS GFR Estimate 10 (L) >60 [facility] mL/min/1.7 [facility] m2 [place] LABS GFR Estimate If 12 (L) >60 [facility] Black mL/min/1.7 [facility] m2 [place] LABS Calcium 9.4 8.5 - 10.4 [facility] mg/dL [facility] LABS Specimen Anatomical Collection Method Collection Time Receive d Time (Source) Location / / Volume Laterality Blood specimen 02/04/2014 5:49 AM 014 5:51 (specimen) CDT AM CDT Omaira Chavez PA-C LAB - BLOOD ORDERABLES Performing Organization Address City/[facility]/ZIP Code Phon e Number [address] LABS (ABNORMAL) Phosphorus (02/04/2014 5:49 AM CDT) P athologist Signature Phosphorus 6.3 (H) 2.5 - 4.5 [facility]ERSITY mg/dL [place] LABS Specimen Anatomical Collection Method Collection Time Receive d Time (Source) Location / / Volume Laterality Blood specimen 02/04/2014 5:49 AM 014 5:51 (specimen) CDT AM CDT Omaira Chavez PA-C LAB - BLOOD ORDERABLES Performing Organization Address City/State/ZIP Code Phon e Number [address] LABS Magnesium (02/04/2014 5:49 AM CDT) P athologist Signature Magnesium 2.1 1.6 - 2.3 [facility]ERSITY mg/dL [place] LABS Specimen Anatomical Collection Method Collection Time Receive d Time (Source) Location / / Volume Laterality Blood specimen 02/04/2014 5:49 AM 014 5:51 (specimen) CDT AM CDT Omaira Chavez PA-C LAB - BLOOD ORDERABLES Performing Organization Address City/State/ZIP Code Phon e Number [facility] [address] [place] [address] [facility] ([facility]NORMAL) CBC with platelets differential (02/04/2014 5:49 AM CDT) [facility] gist Method Time Signature WBC 13.8 (H) 4.0 - [facility] 11.0 UN[facility]ERSITY 10e9/L CAMPUS LABS RBC Count 3.10 (L) 4.4 - 5.9 [facility] 10e12/L [facility] LABS Hemoglobin 9.5 (L) 13.3 - [facility] 17.7 g/dL [facility] LABS Hematocrit 28.7 (L) 40.0 - [facility] 53.0 % [facility] LABS MCV 93 78 - 100 [facility] fl [facility]ITY [place] LABS MCH 30.6 26.5 - [facility] 33.0 pg [facility] LABS MCHC 33.1 31.5 - [facility] 36.5 g/dL [facility] LABS RDW 14.6 10.0 - [facility] 15.0 % [facility] [place] LABS Platelet Count 91 (L) 150 - 450 [facility] 10e9/L [facility] LABS Diff Method Automated [facility] Method [facility] LABS % Neutrophils 95.8 % [facility] LABS % Lymphocytes 1.2 % [facility] LABS % Monocytes 2.8 % [facility] % Eosinophils 0.0 % [facility] % Basophils 0.0 % [facility] % Immature 0.2 % [facility] Granulocytes [facility] LABS Absolute 13.2 (H) 1.6 - 8.3 [facility] Neutrophil 10e9/L [facility] LABS Absolute 0.2 (L) 0.8 - 5.3 [facility] Lymphocytes 10e9/L [facility] LABS Absolute 0.4 0.0 - 1.3 [facility] Monocytes 10e9/L [facility] LABS Absolute 0.0 0.0 - 0.7 [facility] Eosinophils 10e9/L [facility] LABS Absolute 0.0 0.0 - 0.2 [facility] Basophils 10e9/L [facility] LABS Abs Immature 0.0 0 - 0.4 [facility] Granulocytes 10e9/L [facility] LABS Specimen Anatomical Collection Method Collection Time Receive d Time (Source) Location / / Volume Laterality Blood specimen 02/04/2014 5:49 AM 014 5:51 (specimen) CDT AM CDT Omaira Chavez PA-C LAB - BLOOD ORDERABLES Performing Organization Address City/[facility]/ZIP Code Phon e Number [address] [facility] LABS (ABNORMAL) Glucose by meter (02/04/2014 5:33 AM CDT) P athologist Signature Glucose 155 (H) 60 - 99 POINT OF CARE mg/dL TEST, GLUCOSE Specimen Anatomical Collection Method Collection Time Receive d Time (Source) Location / / Volume Laterality 02/04/2014 5:33 AM 4 5:35 CDT AM CDT Migel LARES - ROBERT POCT Performing Organization Address City/[facility]/ZIP Code Phon e Number FV POINT [...] 4:00 CDT AM CDT Migel LARES - ROBERT POCT Performing Organization Address City/[facility]/ZIP Code Phon e Number FV POINT [...] LARES - ROBERT POCT Performing Organization Address City/[facility]/ZIP Code Phon e Number FV POINT [...] LAB - BEAJ POCT Performing Organization Address City/[facility]/ZIP Code Phon e Number FV POINT [...] LAB - ROBERT POCT Performing Organization Address [facility]/ZIP Code Phon e Number FV POINT [...] LAB - BEAKER POCT Performing Organization Address City/[facility]/ZIP Code Phon e Number FV POINT OF CARE TEST, GLUCOSE POINT OF CARE TEST, GLUCOSE Potassium (02/03/2014 10:16 PM CDT) P athologist Signature Potassium 4.8 3.4 - 5.3 [facility] mmol/L [place] LABS Specimen Anatomical Collection Method Collection Time Receive d Time (Source) Location / / Volume Laterality Blood specimen 02/03/2014 10:16 4 (specimen) PM CDT 10:19 PM CDT Caitlin Owens MD LAB - BLOOD ORDERABLES Performing Organization Address City/State/ZIP Code Phon e Number [facility] [address] [place], [place] [id number] [place] [address] LABS (ABNORMAL) Hemoglobin (02/03/2014 10:16 PM CDT) athologist Signature Hemoglobin 9.4 (L) 13.3 - 17.7 [facility] g/dL [place] LABS Specimen Anatomical Collection Method Collection Time Receive d Time (Source) Location / / Volume Laterality Blood specimen 02/03/2014 10:16 4 (specimen) PM CDT 10:19 PM CDT Caitlin Owens MD LAB - BLOOD ORDERABLES Performing Organization Address City/[facility]/ZIP Code Phon e Number [facility] [address] [place], [place] [id number] [place] [address] LABS (ABNORMAL) Glucose by meter (02/03/2014 9:55 PM CDT) athologist Signature Glucose 167 (H) 60 - 99 POINT OF CARE mg/dL TEST, GLUCOSE Specimen Anatomical Collection Method Collection Time Receive d Time (Source) Location / / Volume Laterality 02/03/2014 9:55 PM 4 CDT 10:00 PM CDT Migel LARES - ROBERT POCT Performing Organization Address City/[facility]/ZIP Code Phon e Number FV POINT OF CARE TEST, GLUCOSE POINT OF CARE TEST, GLUCOSE (ABNORMAL) Glucose by meter (02/03/2014 9:03 PM CDT) athologist Signature Glucose 140 (H) 60 - 99 POINT OF CARE mg/dL TEST, GLUCOSE Specimen Anatomical Collection Method Collection Time Receive d Time (Source) Location / / Volume Laterality 02/03/2014 9:03 PM 4 9:05 CDT PM CDT Migel LARES - BEAJ POCT Performing Organization Address City/[facility]/ZIP Code Phon e Number FV POINT [...] 8:10 CDT PM CDT Migel LARES - ROBERT [...] 7:10 CDT PM CDT Migel LARES - ROBERT POCT Performing Organization Address [facility]/ZIP Code Phon e Number FV POINT OF CARE TEST, GLUCOSE POINT OF CARE TEST, GLUCOSE Potassium (02/03/2014 6:52 PM CDT) athologist Signature Potassium 4.7 3.4 - 5.3 [facility] mmol/L CAMPUS LABS Specimen Anatomical Collection Method Collection Time Receive d Time (Source) Location / / Volume Laterality Blood specimen 02/03/2014 6:52 PM 014 6:53 (specimen) CDT PM CDT Caitlin Owens MD LAB - BLOOD ORDERABLES Performing Organization Address [facility] Code Phon e Number [address] LABS (ABNORMAL) Hemoglobin (02/03/2014 6:52 PM CDT) athologist Signature Hemoglobin 9.6 (L) 13.3 - 17.7 [facility] g/dL CAMPUS LABS Specimen Anatomical Collection Method Collection Time Receive d Time (Source) Location / / Volume Laterality Blood specimen 02/03/2014 6:52 PM 014 6:53 (specimen) CDT PM CDT Caitlin Owens MD LAB - BLOOD ORDERABLES Performing Organization Address City/[facility]/ZIP Code Phon e Number [address] LABS (ABNORMAL) Glucose by meter (02/03/2014 6:00 PM CDT) P athologist Signature Glucose 140 (H) 60 - 99 POINT OF CARE mg/dL TEST, GLUCOSE Specimen Anatomical Collection Method Collection Time Receive d Time (Source) Location / / Volume Laterality 02/03/2014 6:00 PM 4 6:05 CDT PM CDT Migel Merchant MD LAB - BEAJ POCT Performing Organization Address City/[facility]/ZIP Code Phon e Number FV POINT [...] LAB - BEAJ POCT Performing Organization Address City/[facility]/ZIP Code Phon e Number FV POINT [...] LAB - BEAJ POCT Performing Organization Address City/[facility]/ZIP Code Phon e Number FV POINT [...] athologist Signature Potassium 4.7 3.4 - 5.3 [facility] mmol/L CAMPUS LABS Specimen Anatomical Collection Method Collection Time Receive d Time (Source) Location / / Volume Laterality Blood specimen 02/03/2014 1:41 PM 014 1:43 (specimen) CDT PM CDT Caitlin Owens MD LAB - BLOOD ORDERABLES Performing Organization Address City/[facility]/ZIP Code Phon e Number [facility] [address] LABS (ABNORMAL) Hemoglobin (02/03/2014 1:41 PM CDT) athologist Signature Hemoglobin 9.8 (L) 13.3 - 17.7 [facility] g/dL [place] LABS Specimen Anatomical Collection Method Collection Time Receive d Time (Source) Location / / Volume Laterality Blood specimen 02/03/2014 1:41 PM 014 1:43 (specimen) CDT PM CDT Caitlin Owens MD LAB - BLOOD ORDERABLES Performing Organization Address City/[facility]/ZIP Code Phon e Number [address] LABS (ABNORMAL) Glucose by meter (02/03/2014 1:10 PM CDT) athologist Signature Glucose 135 (H) 60 - 99 POINT OF CARE mg/dL TEST, GLUCOSE Specimen Anatomical Collection Method Collection Time Receive d Time (Source) Location / / Volume Laterality 02/03/2014 1:10 PM 4 1:15 CDT PM CDT Migel LARES - ROBERT [...] 02/03/2014 AM CDT 12:00 PM CDT Migel JONES POCT Performing Organization [...] 02/03/2014 AM CDT 11:10 AM CDT Migel JONES POCT Performing Organization Address City/[facility]/ZIP Code Phon e Number FV POINT OF CARE TEST, GLUCOSE POINT OF CARE TEST, GLUCOSE Potassium (02/03/2014 10:11 AM CDT) P athologist Signature Potassium 4.8 3.4 - 5.3 [facility] mmol/L CAMPUS LABS Specimen Anatomical Collection Method Collection Time Receive d Time (Source) Location / / Volume Laterality Blood specimen 02/03/2014 10:11 4 (specimen) AM CDT 10:23 AM CDT Caitlin Owens MD LAB - BLOOD ORDERABLES Performing Organization Address City/[facility]/ZIP Code Phon e Number [address] LABS (ABNORMAL) Hemoglobin (02/03/2014 10:11 AM CDT) P athologist Signature Hemoglobin 9.7 (L) 13.3 - 17.7 [facility] g/dL CAMPUS LABS Specimen Anatomical Collection Method Collection Time Receive d Time (Source) Location / / Volume Laterality Blood specimen 02/03/2014 10:11 4 (specimen) AM CDT 10:23 AM CDT Caitlin Owens MD LAB - BLOOD ORDERABLES Performing Organization Address City/[facility]/ZIP Code Phon e Number [address] LABS (ABNORMAL) Glucose by meter (02/03/2014 9:58 AM CDT) P athologist Signature Glucose 168 (H) 60 - 99 POINT OF CARE mg/dL TEST, GLUCOSE Specimen Anatomical Collection Method Collection Time Receive d Time (Source) Location / / Volume Laterality 02/03/2014 9:58 AM 4 CDT 10:00 AM CDT Migel Merchant MD LAB - [place]AK[place] POCT Performing Organization Address [facility] Phon e Number FV POINT OF [...] 9:15 CDT AM CDT Migel LARES - BEAJ POCT Performing Organization Address [facility] Phon e Number FV POINT OF [...] findings. AIRAM MONTA[place] MD Jose Aguirre MD [facility] ORDERABLES (ABNORMAL) Glucose by meter (02/03/2014 8:06 AM CDT) P athologist Signature Glucose 176 (H) 60 - 99 POINT OF CARE mg/dL TEST, GLUCOSE Specimen Anatomical Collection Method Collection Time Receive d Time (Source) Location / / Volume Laterality 02/03/2014 8:06 AM 4 8:10 CDT AM CDT Migel Merchant MD [facility] POCT Performing Organization [...] AM 4 6:10 CDT AM CDT Migel Merchant MD LAB - ROBERT POCT Performing Organization Address City/[facility]/ZIP Code Phon e Number FV POINT OF CARE TEST, GLUCOSE POINT OF CARE TEST, GLUCOSE (ABNORMAL) Basic metabolic panel (02/03/2014 5:38 AM CDT) Patholo gist Method Time Signature Sodium 141 133 - 144 [facility] mmol/L [facility] [place] [facility] Potassium 4.4 3.4 - 5.3 [facility] mmol/L [facility] LABS Chloride 105 94 - 109 [facility] mmol/L [facility] LABS Carbon Dioxide 20 20 - 32 [facility] mmol/L [facility] LABS Anion Gap 15 6 - 17 [facility] mmol/L [facility] LABS Glucose 170 (H) 60 - 99 [facility] mg/dL [facility] LABS Urea Nitrogen 49 (H) 7 - 30 [facility] mg/dL [facility] LABS Creatinine 6.38 (H) 0.66 - [facility] 1.25 mg/dL [facility] LABS GFR Estimate 9 (L) >60 [facility] mL/min/1.7 [place] m2 CAMPUS LABS GFR Estimate If 11 (L) >60 [facility] Black mL/min/1.7 [place] [address] CAMPUS LABS Calcium 9.1 8.5 - 10.4 [facility] mg/dL [facility] [place] [facility] Specimen Anatomical Collection Method Collection Time Receive d Time (Source) Location / / Volume Laterality Blood specimen 02/03/2014 5:38 AM 014 5:40 (specimen) CDT AM CDT Omaira Chavez PA-C LAB - BLOOD ORDERABLES Performing Organization Address City/State/ZIP Code Phon e Number [facility] [address] LABS (ABNORMAL) Phosphorus (02/03/2014 5:38 AM CDT) athologist Signature Phosphorus 4.7 (H) 2.5 - 4.5 [facility] mg/dL [place] LABS Specimen Anatomical Collection Method Collection Time Receive d Time (Source) Location / / Volume Laterality Blood specimen 02/03/2014 5:38 AM 014 5:40 (specimen) CDT AM CDT Omaira Chavez PA-C LAB - BLOOD ORDERABLES Performing Organization Address City/[facility]/ZIP Code Phon e Number [facility] [address] LABS Magnesium (02/03/2014 5:38 AM CDT) athologist Signature Magnesium 2.0 1.6 - 2.3 [facility] mg/dL [place] LABS Specimen Anatomical Collection Method Collection Time Receive d Time (Source) Location / / Volume Laterality Blood specimen 02/03/2014 5:38 AM 014 5:40 (specimen) CDT AM CDT Omaira Chavez PA-C LAB - BLOOD ORDERABLES Performing Organization Address City/State/ZIP Code Phon e Number [facility] [address] LABS (ABNORMAL) CBC with platelets differential (02/03/2014 5:38 AM CDT) [facility] g[facility] Method Time Signature WBC 13.2 (H) 4.0 - [facility] 11.0 [facility] 10e9/L [place] LABS RBC Count 3.20 (L) 4.4 - 5.9 [facility] 10e12/L [facility] LABS Hemoglobin 9.9 (L) 13.3 - [facility] 17.7 g/dL [facility] LABS Hematocrit 30.2 (L) 40.0 - [facility] 53.0 % [facility] LABS MCV 94 78 - 100 [facility] fl [facility] LABS MCH 30.9 26.5 - [facility] 33.0 pg [facility] LABS MCHC 32.8 31.5 - [facility] 36.5 g/dL [facility] LABS RDW 14.5 10.0 - [facility] 15.0 % [facility] LABS Platelet Count 108 (L) 150 - 450 [facility] 10e9/L [facility] [place] [facility] Diff Method Automated [facility] Method [facility]ITY [facility]AMP[facility] LABS % Neutrophils 96.9 % [facility] % Lymphocytes 0.7 % [facility] % Monocytes 2.1 % [facility] % Eosinophils 0.0 % [facility] UNIVERSITY CAMP[facility] LABS % Basophils 0.1 % [facility]ITY [facility]AMP[facility] LABS % Immature 0.2 % [facility] Granulocytes UN[facility]ERSITY CAMPUS LABS Absolute 12.8 (H) 1.6 - 8.3 [facility] Neutrophil 10e9/L [facility]AMP[facility] LABS Absolute 0.1 (L) 0.8 - 5.3 [facility] Lymphocytes 10e9/L [facility] LABS Absolute 0.3 0.0 - 1.3 [facility] Monocytes 10e9/L [facility] LABS Absolute 0.0 0.0 - 0.7 [facility] Eosinophils 10e9/L [facility] LABS Absolute 0.0 0.0 - 0.2 [facility] Basophils 10e9/L [facility] LABS Abs Immature 0.0 0 - 0.4 [facility] Granulocytes 10e9/L [facility] LABS Specimen Anatomical Collection Method Collection Time Receive d Time (Source) Location / / Volume Laterality Blood specimen 02/03/2014 5:38 AM 014 5:40 (specimen) CDT AM CDT Omaira Chavez PA-C LAB - BLOOD ORDERABLES Performing Organization Address City/[facility]/ZIP Code Phon e Number [address] LABS (ABNORMAL) Hemoglobin A1c (02/03/2014 5:38 AM CDT) Analysis Performed At Patho logist Time Signature Hemoglobin A1C 6.2 (H) 4.3 - 6.0 [facility] % [facility] LABS Specimen Anatomical Collection Method Collection Time Receive d Time (Source) Location / / Volume Laterality Blood specimen 02/03/2014 5:38 AM 014 5:40 (specimen) CDT AM CDT Caitlin Owens MD LAB - BLOOD ORDERABLES Performing Organization Address City/[facility]/ZIP Code Phon e Number [address] LABS (ABNORMAL) Glucose by meter (02/03/2014 5:05 AM CDT) P athologist Signature Glucose 176 (H) 60 - 99 POINT OF CARE mg/dL TEST, GLUCOSE Specimen Anatomical Collection Method Collection Time Receive d Time (Source) Location / / Volume Laterality 02/03/2014 5:05 AM 4 5:10 CDT AM CDT Migel Merchant MD LAB - BEAKER POCT Performing Organization Address [facility] Code Phon e Number FV POINT [...] LAB - BEAJ POCT Performing Organization Address [facility] Phon e Number FV POINT OF [...] LAB - BEAKER POCT Performing Organization Address [facility] Phon e Number FV POINT OF [...] LAB - BEAJ POCT Performing Organization Address [facility] Phon e Number FV POINT OF CARE TEST, GLUCOSE POINT OF CARE TEST, GLUCOSE Potassium (02/03/2014 1:18 AM CDT) athologist Signature Potassium 4.7 3.4 - 5.3 [facility] mmol/L CAMPUS LABS Specimen Anatomical Collection Method Collection Time Receive d Time (Source) Location / / Volume Laterality Blood specimen 02/03/2014 1:18 AM 014 1:20 (specimen) CDT AM CDT Caitlin Owens MD LAB - BLOOD ORDERABLES Performing Organization Address City/[facility]/ZIP Code Phon e Number [facility] [address] LABS (ABNORMAL) Hemoglobin (02/03/2014 1:18 AM CDT) athologist Signature Hemoglobin 9.8 (L) 13.3 - 17.7 [facility] g/dL [place] LABS Specimen Anatomical Collection Method Collection Time Receive d Time (Source) Location / / Volume Laterality Blood specimen 02/03/2014 1:18 AM 014 1:20 (specimen) CDT AM CDT Caitlin Owens MD LAB - BLOOD ORDERABLES Performing Organization Address City/[facility]/ZIP Code Phon e Number [address] LABS (ABNORMAL) Glucose by meter (02/03/2014 [...] CDT 12:15 AM CDT Migel Merchant MD [facility] POCT Performing Organization Address City/State/ZIP Code Phon [...] No concerning bone findings. Procedure Note Airam oMntana MD - 02/03/2014Formatt ing of this note [...] athologist Signature Phosphorus 4.4 2.5 - 4.5 [facility] mg/dL CAMPUS LABS Specimen Anatomical Collection Method Collection Time Receive d Time (Source) Location / / Volume Laterality Blood specimen 02/02/2014 10:50 4 (specimen) PM CDT 11:06 PM CDT Caitlin Owens MD LAB - BLOOD ORDERABLES Performing Organization Address City/[facility]/ZIP Code Phon e Number [facility] [address] LABS Magnesium (02/02/2014 10:50 PM CDT) athologist Signature Magnesium 1.8 1.6 - 2.3 [facility] mg/dL [place] LABS Specimen Anatomical Collection Method Collection Time Receive d Time (Source) Location / / Volume Laterality Blood specimen 02/02/2014 10:50 4 (specimen) PM CDT 11:06 PM CDT Caitlin Owens MD LAB - BLOOD ORDERABLES Performing Organization Address City/[facility]/ZIP Code Phon e Number [facility] [address] LABS (ABNORMAL) Basic metabolic panel (02/02/2014 10:50 PM CDT) [facility] gist Method Time Signature Sodium 138 133 - 144 [facility] mmol/L [facility] LABS Potassium 4.5 3.4 - 5.3 [facility] mmol/L [facility] LABS Chloride 104 94 - 109 [facility] mmol/L [facility] LABS Carbon Dioxide 25 20 - 32 [facility] mmol/L [facility] LABS Anion Gap 10 6 - 17 [facility] mmol/L [facility] LABS Glucose 134 (H) 60 - 99 [facility] mg/dL [facility] LABS Urea Nitrogen 44 (H) 7 - 30 [facility] mg/dL [facility] LABS Creatinine 6.14 (H) 0.66 - [facility] 1.25 mg/dL [facility] LABS GFR Estimate 9 (L) >60 [facility] mL/min/1.[address] LABS GFR Estimate If 11 (L) >60 [facility] Black mL/min/1.7 [place] [address] CAMPUS LABS Calcium 8.8 8.5 - 10.4 [facility] mg/dL [facility] LABS Specimen Anatomical Collection Method Collection Time Receive d Time (Source) Location / / Volume Laterality Blood specimen 02/02/2014 10:50 4 (specimen) PM CDT 11:06 PM CDT Caitlin Owens MD LAB - BLOOD ORDERABLES Performing Organization Address City/State/ZIP Code Phon e Number [address] LABS (ABNORMAL) CBC with platelets differential (02/02/2014 10:50 PM CDT) [facility] gist Method Time Signature WBC 8.2 4.0 - [facility] 11.0 [facility] 10e9/L [place] LABS RBC Count 3.34 (L) 4.4 - 5.9 [facility] 10e12/L [facility] LABS Hemoglobin 10.3 (L) 13.3 - [facility] 17.7 g/dL [facility] LABS Hematocrit 30.9 (L) 40.0 - [facility] 53.0 % [facility] LABS MCV 93 78 - 100 [facility] fl [facility] LABS MCH 30.8 26.5 - [facility] 33.0 pg [facility] LABS MCHC 33.3 31.5 - [facility] 36.5 g/dL [facility] LABS RDW 14.3 10.0 - [facility] 15.0 % [facility] LABS Platelet Count 79 (L) 150 - 450 [facility] 10e9/L [facility] LABS Diff Method Automated [facility] Method [facility] LABS % Neutrophils 96.7 % [facility] LABS % Lymphocytes 1.6 % [facility] LABS % Monocytes 1.2 % [facility] % Eosinophils 0.4 % [facility] LABS % Basophils 0.0 % [facility] LABS % Immature 0.1 % [facility] Granulocytes [facility] LABS Absolute 7.9 1.6 - 8.3 [facility] Neutrophil 10e9/L [facility] LABS Absolute 0.1 (L) 0.8 - 5.3 [facility] Lymphocytes 10e9/L [facility] LABS Absolute 0.1 0.0 - 1.3 [facility] Monocytes 10e9/L [facility] LABS Absolute 0.0 0.0 - 0.7 [facility] Eosinophils 10e9/L [facility] LABS Absolute 0.0 0.0 - 0.2 [facility] Basophils 10e9/L [facility] LABS Abs Immature 0.0 0 - 0.4 [facility] Granulocytes 10e9/L [facility] LABS Specimen Anatomical Collection Method Collection Time Receive d Time (Source) Location / / Volume Laterality Blood specimen 02/02/2014 10:50 4 (specimen) PM CDT 11:06 PM CDT Caitlin Owens MD LAB - BLOOD ORDERABLES Performing Organization Address City/State/ZIP Code Phon e Number [facility] [address] [place], [place] [id number] [place] [address] LABS (ABNORMAL) VENOUS PANEL (02/02/2014 10:09 PM CDT) [facility] gist Method Time Signature Ph Venous 7.31 (L) 7.32 - [facility] 7.43 pH [facility] LABS PCO2 Venous 52 (H) 40 - 50 [facility] mm Hg [facility] LABS PO2 Venous 34 25 - 47 [facility] mm Hg [facility] LABS Bicarbonate 26 21 - 28 [facility] Venous mmol/L [facility] LABS Base Deficit 0.3 mmol/L [facility] Venous [facility] LABS Comment: Reference range: -7.7 to 1.9 FIO2 45 [facility] LABS Sodium 137 133 - 144 mmol/L [facility] LABS Potassium 4.4 3.4 - 5.3 mmol/L [facility] LABS Hemoglobin 10.0 (L) 13.3 - 17.7 g/dL [facility] LABS Glucose 116 (H) 60 - 99 mg/dL [facility] LABS Calcium Ionized Whole Blood 4.8 4.4 - 5.2 mg/dL [facility] LABS Specimen Anatomical Collection Method Collection Time Receive d Time (Source) Location / / Volume Laterality 02/02/2014 10:09 02/02/2014 PM CDT 10:14 PM CDT Migel Nathan Finger MD LAB - BLOOD ORDERABLES Performing Organization Address City/State/ZIP Code Phon e Number [address] [facility] LABS (ABNORMAL) Glucose by meter (02/02/2014 9:24 [...] [facility] LABS PCO2 Venous 50 40 - 50 mm [facility] Hg [facility] LABS PO2 Venous 46 25 - 47 mm [facility] Hg [facility] LABS Bicarbonate 28 21 - 28 [facility] Venous mmol/L [facility] LABS Base Excess 1.8 mmol/L [facility] Venous [facility] LABS Comment: Reference range: -7.7 to 1.9 FIO2 100% [facility] LABS Sodium 141 133 - 144 mmol/L [facility] LABS Potassium 3.7 3.4 - 5.3 mmol/L [facility] LABS Hemoglobin 10.3 (L) 13.3 - 17.7 g/dL [facility] LABS Glucose 76 60 - 99 mg/dL [facility] LABS Calcium Ionized Whole Blood 4.8 4.4 - 5.2 mg/dL [facility] LABS Specimen Anatomical Collection Method Collection Time Receive d Time (Source) Location / / Volume Laterality 02/02/2014 6:40 PM 4 6:44 CDT PM CDT Migel Merchant MD LAB - BLOOD ORDERABLES Performing Organization Address City/[facility]/ZIP Code Phon e Number [facility] [address] [place] [address] [facility] LABS Glucose by meter (02/02/2014 5:11 PM CDT) P athologist Signature Glucose 89 60 - 99 POINT OF CARE mg/dL TEST, GLUCOSE Specimen Anatomical Collection Method Collection Time Receive d Time (Source) Location / / Volume Laterality 02/02/2014 5:11 PM 4 5:15 CDT PM CDT Migel LARES - BEAJ POCT Performing Organization Address City/[facility] Phon e Number FV POINT OF [...] 3:50 CDT PM CDT Migel LARES - BEAKER POCT Performing Organization Address [facility] Phon e Number FV POINT OF [...] MARYELLEN Blood component (02/02/2014 2:07 PM CDT) [email or web address] Method Time Signature Unit Number [id number] [facility] LABS Blood Red Blood [facility] Component Cells [facility] LABS Reduced Division 00 [facility] LABS Status of No longer [place] Unit available [facility] 02/06/2014 HOSPITAL LAB 0300 Specimen Anatomical Collection Method Collection Time Receive d Time (Source) Location / / Volume Laterality 02/02/2014 2:07 PM 4 2:10 CDT PM CDT Caitlin Owens MD LABORATORY Performing Organization Address City/State/ZIP Code [facility] e Number M [address] [facility] LABS [facility] LAB Blood component (02/02/2014 2:07 PM CDT) [email or web address] Method Time Signature Unit Number [id number] [facility] LABS Blood Red Blood [facility] Component Cells [facility] LABS Reduced Division 00 [facility] LABS Status of No longer [facility] Unit available [facility] 02/06/2014 HOSPITAL LAB 0300 Specimen Anatomical Collection Method Collection Time Receive d Time (Source) Location / / Volume Laterality 02/02/2014 2:07 PM 4 2:10 CDT PM CDT Caitlin Owens MD LABORATORY Performing Organization Address City/State/ZIP Code Phon e Number [facility] [address] [place], [place] [address] HOSPITAL [facility] LABS [facility] LAB ABO/Rh type and screen (02/02/2014 2:07 PM CDT) Patholo gist Method Time Signature Units Ordered 2 [facility] LABS ABO A [facility] LABS RH(D) Pos [facility] LABS Antibody Neg [facility] Screen [facility] LABS Test Valid [facility] Only At [facility] BLOOD BANK Center,[place] LAB w Hospital Specimen 02/05/2014 [facility] Crossmatch Red Blood [facility] Cells [facility] LABS Specimen Anatomical Collection Method Collection Time Receive d Time (Source) Location / / Volume Laterality Blood specimen 02/02/2014 2:07 PM 014 2:10 (specimen) CDT PM CDT Caitlin Owens MD LAB - BLOOD BANK TEST ORDER Performing Organization Address City/State/ZIP Code Phon e Number [facility] [address] [place] [address] [facility] LABS [facility] BLOOD BANK LAB (ABNORMAL) Lipid Profile (02/02/2014 2:07 PM CDT) P athologist Signature Cholesterol 135 <200 mg/dL [facility] LABS Comment: LDL Cholesterol is the primary guide to therapy. The NCEP recommends further evaluation of: patients with cholesterol greater than 200 mg/dL if additional risk facto rs are present, cholesterol greater than 240 mg/dL, triglycerides greater than 1 50 mg/dL, or HDL less than 40 mg/dL. Triglycerides 124 0 - 150 mg/dL [facility] HDL Cholesterol 34 (L) >40 mg/dL [facility] LABS LDL Cholesterol Calculated 77 0 - 129 mg/dL [facility] LABS Comment: LDL Cholesterol is the primary guide to therapy: LDL-cholesterol goal in high risk patients is <100 mg/dL and in very high risk patients is <70 mg/dL. VLDL-Cholesterol 25 0 - 30 mg/dL [facility] LABS Cholesterol/HDL Ratio 4.0 0.0 - 5.0 [facility] LABS Specimen Anatomical Collection Method Collection Time Receive d Time (Source) Location / / Volume Laterality Blood specimen 02/02/2014 2:07 PM 014 2:08 (specimen) CDT PM CDT Caitlin Owens MD LAB - BLOOD ORDERABLES Performing Organization Address City/[facility]/ZIP Code Phon e Number [facility] [address] LABS (ABNORMAL) Hemoglobin A1c (02/02/2014 2:07 PM CDT) Analysis Performed At Patho logist Time Signature Hemoglobin A1C 6.2 (H) 4.3 - 6.0 [facility] LABS Specimen Anatomical Collection Method Collection Time Receive d Time (Source) Location / / Volume Laterality Blood specimen 02/02/2014 2:07 PM 014 2:08 (specimen) CDT PM CDT Caitlin Owens MD LAB - BLOOD ORDERABLES Performing Organization Address City/[facility]/ZIP Code Phon e Number [facility] [address] LABS Hepatitis C antibody (02/02/2014 2:07 PM CDT) Patholo gist Method Time Signature Hepatitis C Negative NEG [facility] Antibody MICROBIOLOGY Specimen Anatomical Collection Method Collection Time Receive d Time (Source) Location / / Volume Laterality Blood specimen 02/02/2014 2:07 PM 014 2:08 (specimen) CDT PM CDT Caitlin Owens MD LAB - BLOOD ORDERABLES Performing Organization Address City/[facility]/ZIP Code Phon e Number [facility] [address] MICROBIOLOGY Hepatitis B core antibody IgM (02/02/2014 [...] Phon e Number [facility] [address] [place], [place] [id number] [place] [address] MICROBIOLOGY Hepatitis B surface antigen (02/02/2014 2:07 PM CDT) [facility] Signature Hep B Surface Negative NEG [facility] Agn MICROBIOLOGY Specimen Anatomical Collection Method Collection Time Receive d Time (Source) Location / / Volume Laterality Blood specimen 02/02/2014 2:07 PM 014 2:08 (specimen) CDT PM CDT Caitlin Owens MD LAB - BLOOD ORDERABLES Performing Organization Address City/State/ZIP Code Phon e Number [facility] [address] [place], [place] [id number] [place] [address] MICROBIOLOGY HIV Antigen Antibody Combo (02/02/2014 2:07 PM CDT) [facility] Signature HIV Antigen Nonreactive NR [facility] Antibody HIV-1 p24 Ag & HIV-1/HIV-2 Ab Not Detected [facility] LABS Specimen Anatomical Collection Method Collection Time Receive d Time (Source) Location / / Volume Laterality Blood specimen 02/02/2014 2:07 PM 014 2:08 (specimen) CDT PM CDT Caitlin Owens MD LAB - BLOOD ORDERABLES Performing Organization Address City/State/ZIP Code Phon e Number [address] LABS EBV Capsid Antibody IgM (02/02/2014 2:07 PM CDT) [facility] Signature EBV Capsid <0.2 0.0 - 0.8 [facility] Antibody IgM No detectable antibody. [facility] Specimen Anatomical Collection Method Collection Time Receive d Time (Source) Location / / Volume Laterality Blood specimen 02/02/2014 2:07 PM 014 2:08 (specimen) CDT PM CDT Caitlin Owens MD LAB - BLOOD ORDERABLES Performing Organization Address City/[facility]/ZIP Code Phon e Number [address] LABS (ABNORMAL) EBV Capsid Antibody IgG (02/02/2014 2:07 PM CDT) [facility] Signature EBV Capsid >8.0 0.0 - 0.8 [facility] Antibody IgG Positive, suggests recent or past exposure [facility] (H) [place] LABS Specimen Anatomical Collection Method Collection Time Receive d Time (Source) Location / / Volume Laterality Blood specimen 02/02/2014 2:07 PM 014 2:08 (specimen) CDT PM CDT Caitlin Owens MD LAB - BLOOD ORDERABLES Performing Organization Address City/[facility]/ZIP Code Phon e Number [facility] [address] LABS CMV antibody IgM (02/02/2014 2:07 PM CDT) Analysis Performed At Patho logist Time Signature CMV Antibody <0.2 0.0 - 0.8 [facility] IgM Negative [facility] LABS Specimen Anatomical Collection Method Collection Time Receive d Time (Source) Location / / Volume Laterality Blood specimen 02/02/2014 2:07 PM 014 2:08 (specimen) CDT PM CDT Caitlin Owens MD LAB - BLOOD ORDERABLES Performing Organization Address City/[facility]/ZIP Code Phon e Number [facility] [address] LABS (ABNORMAL) CMV Antibody IgG (02/02/2014 2:07 PM CDT) P athologist Signature CMV Antibody 7.8 (H) 0.0 - 0.8 [facility] IgG [facility] LABS Comment: Positive Specimen Anatomical Collection Method Collection Time Receive d Time (Source) Location / / Volume Laterality Blood specimen 02/02/2014 2:07 PM 014 2:08 (specimen) CDT PM CDT Caitlin Owens MD LAB - BLOOD ORDERABLES Performing Organization Address City/[facility]/ZIP Code Phon e Number [facility] [address] LABS (ABNORMAL) Comprehensive metabolic panel (02/02/2014 2:07 PM CDT) Patholo gist Method Time Signature Sodium 141 133 - 144 [facility] mmol/L [facility] LABS Potassium 4.2 3.4 - 5.3 [facility] mmol/L [facility] LABS Chloride 101 94 - 109 [facility] mmol/L [facility] LABS Carbon Dioxide 26 20 - 32 [facility] mmol/L [facility] Anion Gap 13 6 - 17 [facility] mmol/L [facility] LABS Glucose 112 (H) 60 - 99 [facility] mg/dL [facility] Urea Nitrogen 42 (H) 7 - 30 [facility] mg/dL [facility] LABS Creatinine 6.03 (H) 0.66 - [facility] 1.25 [facility] mg/dL [facility]AMP[facility] LABS GFR Estimate 9 (L) >60 [facility] mL/min/1. [facility] 7m2 [facility] LABS GFR Estimate If 11 (L) >60 [facility] Black mL/min/1. [facility] 7 CAMPUS LABS Calcium 9.9 8.5 - [facility] 10.4 [facility] mg/dL [facility]AMPUS LABS Bilirubin Total 0.7 0.2 - 1.3 [facility] mg/dL [facility] Albumin 4.2 3.3 - 4.9 [facility] g/dL [facility] LABS Protein Total 7.5 6.8 - 8.8 [facility] g/dL [facility] LABS Alkaline 88 40 - 150 [facility] Phosphatase U/L [facility] LAB[facility] ALT 33 0 - 70 [facility] U/L [facility] LABS AST 18 0 - 45 [facility] U/L [facility] LABS Specimen Anatomical Collection Method Collection Time Receive d Time (Source) Location / / Volume Laterality Blood specimen 02/02/2014 2:07 PM 014 2:08 (specimen) CDT PM CDT Caitlin Owens MD LAB - BLOOD ORDERABLES Performing Organization Address City/State/ZIP Code Phon e Number [phone] [place] [address] LABS (ABNORMAL) CBC with platelets differential (02/02/2014 2:07 PM CDT) [facility] gist Method Time Signature WBC 6.3 4.0 - [facility] 11.0 [facility] 10e9/L [place] LABS RBC Count 3.71 (L) 4.4 - 5.9 [facility] 10e12/L [facility] LABS Hemoglobin 11.5 (L) 13.3 - [facility] 17.7 g/dL [facility] LABS Hematocrit 33.7 (L) 40.0 - [facility] 53.0 % [facility] [place] LABS MCV 91 78 - 100 [facility] fl [facility] [place] LABS MCH 31.0 26.5 - [facility] 33.0 pg [facility] MCHC 34.1 31.5 - [facility] 36.5 g/dL [facility] LABS RDW 14.0 10.0 - [facility] 15.0 % [facility] Platelet Count 110 (L) 150 - 450 [facility] 10e9/L [facility] LABS Diff Method Automated [facility] Method [facility] LABS % Neutrophils 52.4 % [facility] LABS % Lymphocytes 32.1 % [facility] % Monocytes 7.9 % [facility] % Eosinophils 7.1 % [facility] % Basophils 0.3 % [facility] % Immature 0.2 % [facility] Granulocytes [facility] LABS Absolute 3.3 1.6 - 8.3 [facility] Neutrophil 10e9/L [facility] LABS Absolute 2.0 0.8 - 5.3 [facility] Lymphocytes 10e9/L [facility] LABS Absolute 0.5 0.0 - 1.3 [facility] Monocytes 10e9/L [facility] LABS Absolute 0.5 0.0 - 0.7 [facility] Eosinophils 10e9/L [facility] LABS Absolute 0.0 0.0 - 0.2 [facility] Basophils 10e9/L [facility] LABS Abs Immature 0.0 0 - 0.4 [facility] Granulocytes 10e9/L [facility] LABS Specimen Anatomical Collection Method Collection Time Receive d Time (Source) Location / / Volume Laterality Blood specimen 02/02/2014 2:07 PM 014 2:08 (specimen) CDT PM CDT Caitlin Owens MD LAB - BLOOD ORDERABLES Performing Organization Address City/[facility] Phon e Number [address] LABS Creatinine urine calculation only (02/02/2014 2:00 PM CDT) P athologist Signature Creatinine 88 mg/dL [facility] Urine [place] LABS Specimen Anatomical Collection Method Collection Time Receive d Time (Source) Location / / Volume Laterality 02/02/2014 2:00 PM 4 2:12 CDT PM CDT Caitlin Oewns MD LAB - URINE ORDERABLES Performing Organization Address City/[facility] Code Phon e Number [address] LABS (ABNORMAL) Urine culture (02/02/2014 2:00 PM CDT) Component Value Ref Test Analysis Performed At Patholo gist Range Method Time Signature Specimen Midstream Urine [facility] Description [facility] LABS Special Specimen received [facility] Requests in preservative MICROBIOLOGY Culture Micro <10,000 colonies/mL Gram pos itive cocci No further identification Susceptibility [facility] testing not routinely done SD CROBIOLOGY <10,000 colonies/mL Strain 2 Gram positive [...] MICRO GENERAL ORDERABL ES Performing Organization Address City/[facility]/ZIP Code Phon e Number [address] LABS [facility] MICROBIOLOGY (ABNORMAL) Protein random urine (02/02/2014 2:00 PM CDT) [facility] Method Time Signature Protein Random 1.89 g/L [facility] Urine [facility] LABS Protein Total 2.15 (H) 0 - 0.2 [facility] Urine g/gr g/g Cr [facility] LABS Specimen Anatomical Collection Method Collection Time Receive d Time (Source) Location / / Volume Laterality Urine specimen URINE SPECIMEN 02/02/2014 2:00 PM 02/02 2:12 (specimen) OBTAINED BY CLEAN CDT PM CDT CATCH PROCEDURE / Unknown Caitlin Owens MD LAB - URINE ORDERABLES Performing Organization Address City/[facility] Code Phon e Number [address] LABS (ABNORMAL) Routine UA with microscopic (02/02/2014 2:00 PM CDT) [facility] Method Time Signature Color Urine Light Yellow [facility] LABS Appearance Urine Clear [facility] LABS Glucose Urine 70 (A) NEG mg/dL [facility] LABS Bilirubin Urine Negative NEG [facility] LABS Ketones Urine Negative NEG mg/dL [facility] LABS Specific [place] 1.008 1.003 - [facility] Urine 1.035 [facility] LABS Blood Urine Negative NEG [facility] LABS pH Urine 8.0 (H) 5.0 - 7.0 [facility] pH [facility] Protein Albumin 100 (A) NEG mg/dL [facility] Urine [facility] LABS Urobilinogen Normal 0.0 - 2.0 [facility] mg/dL mg/dL [facility] LABS Nitrite Urine Negative NEG [facility] LABS Leukocyte Negative NEG [facility] Esterase Urine [facility] LABS Source Clean catch [facility] urine [facility] LABS WBC Urine 1 0 - 2 [facility] /HPF [facility] LABS RBC Urine 0 0 - 2 [facility] /HPF [facility] Squamous <1 0 - 1 [facility] Epithelial /HPF /HPF [facility] Urine [place] LABS Specimen Anatomical Collection Method Collection Time Receive d Time (Source) Location / / Volume Laterality Urine specimen URINE SPECIMEN 02/02/2014 2:00 PM 02/02 2:12 (specimen) OBTAINED BY CLEAN CDT PM CDT CATCH PROCEDURE / Unknown Caitlin Owens MD LAB - URINE ORDERABLES Performing Organization Address City/State/ZIP Code Phon e Number [phone] [place] [address] LABS (ABNORMAL) Glucose by meter (02/02/2014 1:59 PM CDT) athologist Signature Glucose 115 (H) 60 - 99 POINT OF CARE mg/dL TEST, GLUCOSE Specimen Anatomical Collection Method Collection Time Receive d Time (Source) Location / / Volume Laterality 02/02/2014 1:59 PM 4 2:05 CDT PM CDT Migel Merchant MD LAB - BEAKER POCT Performing Organization Address City/[facility]/ZIP Code Phon e Number [facility] POINT [...] mg, Intravenous Central line, ONCE, O n 02/06/14 at 1430, For 1 dose, For CENTRAL catheter. Infuse first dose over 6 hours, and subsequent doses over 4-6 hours through an in-line 0.22 micron filter. benzocaine (HURRICAINE/TOPEX) 20 % spray 1-4 mL (COMPL ETED) 0915 (Given - Provider: Viry Kessler RN) 1-4 mL (1-4 spray), Mouth/Throat, ONCE, On Tue02/06/14 at 0930, For 1 dose, When verbally ordered by the prescriber. [place] throat with 1-4 sprays 5 minutes prior to procedure in the [facility] procedure room , Cardiac Intra-procedure clotrimazole (MYCELEX) lozenge 10 mg 1205 (Given - Pro vider: Ganesh Covarrubias RN)1335 (Given - Provider: Ganesh Covarrubias RN)1952 (Given - Provider: Annmarie Colby, BOGDAN) 0837 (Given - Provider: Lashaun Braswell, BOGDAN)1347 (Given - Provider: Lashaun Braswell, RN)2005 (Given - Provider: Annmarie Colby, BOGDAN) [...] BOGDAN) 0844 (Given - Provider: Lashaun Braswell, RN)1343 (Given - Provider: Lashaun Braswell, BOGDAN)1924 (Given - Provider: Annmarie Colby, BOGDAN) 0902 [...] (CANCELED) 1840 (Gi isael - Provider: Lashaun Braswell, BOGDAN) Subcutaneous, DAILY WITH SUPPER, First [...] units given. Do not give if pre-prandial 2209 (Not Given - Provider: Annmarie Colby RN [...] % mouth solution 15 mL (COMPLE ALOK) 09 (Given - Provider: Viry Kessler RN) 15 [...] 2 TIMES DAILY., First do se on Tue02/03/14 at 0800, Check if BLOOD LEVEL is [...] RN) 0836 (Given - Provider: Lashaun Braswell RN)1999 [...] RN)1820 (Given - Provider: Lashaun Braswell, BOGDAN) 0130 (Given - Provider: Annmarie Colby RN)0810 [...] Gi isael - Provider: Lynne Gatica [facility] - Reason: Other [...] mg, Rectal, DAILY PRN, constipation, Starting on 02/04/14 at 0000, Start on POD #2. [...] draw. documented in this encounter Care Teams Director Biology Relationship Specialty Start Date End Date Momo Forbes PCP - General Family Practice 01/02/14 [place] [phone] Ingrid Santana, RN Registered Nurse Transplant 02/10/12 documented as of this encounter
--- OUTSIDE RECORDS SUMMARY | 2022-05-21 13:28 | XMS_ITS | Encounter Summary ---
:1950 Author Organization [place] Address [facility] [address] Care Team Providers Name Role Phone Toña Jones MD Primary Care Provider Ingrid Santana RN Unavailable Unavailable Reason for Referral CV Cardio consult - Closed Specialty Diagnoses / Procedures Referred By Contact Refer red To Contact Diagnoses Organ transplant candidate Screening for other and unspecified cardiovascular conditions ESRD (end stage renal disease) on dialysis (H) DM (diabetes mellitus), type 2 (H) Zz Ump Sot Surgery 2nd Floor, Clinic [address] [phone] Referral ID Status Reason Start Date Expiration Date Visits Requ ested Visits Authorized [id number] Closed 12/10/2013 06/08/2014 1 1 Consultation - Closed Specialty Diagnoses / Procedures Referred By Contact Refer red To Contact Diagnoses Organ transplant candidate ESRD (end stage renal disease) on dialysis (H) DM (diabetes mellitus), type 2 (H) Zz Ump Sot Surgery 2nd Floor, [facility] [address] [phone] Referral ID Status Reason Start Date Expiration Date Visits Requ ested Visits Authorized [id number] Closed 12/10/2013 06/08/2014 1 1 Encounter Details Date Type Department Care Team Description 12/07/2013 Orders Only Transplant Surgery Nazia March LPN Organ transplant candidate (Primary Dx); Clinic Screening for other and unsp ecified cardiovascular conditions; 2nd Floor, Clinic 2A ESRD (end stage renal diseas e) on dialysis (H); Tommy Wilburn DM (madeleine betes mellitus), type 2 (H) [address] [phone] Social History Tobacco Use [...] Name Type Priority Associated Diagnoses Order S andres Nephrology Adult Referral Routine Organ transplan t [...] uncontrolled documented in this encounter Care Teams Dyed Yarn Operator Relationship Specialty Start Date End Date Toña Jones MD PCP - General Nephrology 11/25/11 01/01/14 Ingrid Santana RN Registered Nurse Transplant 02/10/12 documented as of this encounter
--- OUTSIDE RECORDS SUMMARY | 2022-05-21 13:28 | XMS_ITS | Encounter Summary ---
:1950 Author Organization [place] Address [address] [place] [address] Care Team Providers Name Role Phone Ingrid Santana RN Unavailable Unavailable Momo Forbes Primary Care Provider Encounter Details Date Type Department Care Team Description 01/20/2014 Orders Only [facility], [facility], [facility] [address] [phone] [place] [address] 032 [place] [address] (Wo rk) Social History Tobacco [...] Results Tacrolimus level (02/15/2014 8:55 AM CDT) [facility] Method Time Signature Tacrolimus Last 02/14/2014 [facility] Dose 2030 [facility] LABS Tacrolimus 5.9 5.0 - [facility] Level 15.0 ug/L [facility] LABS Comment: Tacrolimus Reference Range [...] Phon e Number [facility] 500 [place] [address] [facility] documented in this encounter Visit Diagnoses Not on filedocumented in this encounter Care Teams Assembly Line Worker Relationship Specialty Start Date End Date Momo Forbes PCP - General Family Practice 01/02/14 [facility] [address] [place] [address] Ingrid Santana, RN Registered Nurse Transplant 02/10/12 documented as of this encounter
--- OUTSIDE RECORDS SUMMARY | 2022-05-21 13:28 | XMS_ITS | Encounter Summary ---
:1950 Author Organization [place] Address [facility] [place] [address] Care Team Providers Name Role Phone Toña Jones MD Primary Care Provider Ingrid Santana RN Unavailable Unavailable Reason for Visit Reason Onset Date Comments Transplant 12/19/2013 Kidney waitlist appo intments Encounter Details Date Type Department Care Team Description 12/19/2013 Telephone The Transplant Edda low Abstract, Provider Transplant (Kidney 2nd Floor, Clinic 2A waitlist appointments) Tommy Ruiz[address] [phone] Social History Tobacco Use Types Packs/Day Years [...] encounter Miscellaneous Notes Telephone Encounter - Meghan Sctot - 12/19/2013 11:02 AM CDT Patient verified date/time of kidney waitlist appointments - schedule sent. documented in this encounter Plan of Treatment Not on filedocumented as of this encounter Visit Diagnoses Not on filedocumented in this encounter Care Teams Infection Prevention Practitioner Relationship Specialty Start Date End Date Toña Jones MD PCP - General Nephrology 11/25/11 01/01/14 Ingrid Santana, RN Registered Nurse Transplant 02/10/12 documented as of this encounter
--- OUTSIDE RECORDS SUMMARY | 2022-05-21 13:28 | XMS_ITS | Encounter Summary ---
:1950 Author Organization [place] Address [facility] [place] [address] Care Team Providers Name Role Phone Toña Jones MD Primary Care Provider Ingrid Santana RN Unavailable Unavailable Encounter Details Date Type Department Care Team Description 12/10/2013 Telephone Transplant Surgery C Nazia Bledsoe LPN 2nd Floor, Clinic 2A [place] [phone] Social History Tobacco Use Types Packs/Day [...] filedocumented in this encounter Care Teams Wood Fence Erector Relationship Specialty Start Date End Date Toña Jones MD PCP - General Nephrology 11/25/11 01/01/14 Ingrid Santana, RN Registered Nurse Transplant 02/10/12 documented as of this encounter
--- OUTSIDE RECORDS SUMMARY | 2022-05-21 13:28 | XMS_ITS | Encounter Summary ---
:1950 Author Organization [place] Address [address] [place] [address] Care Team Providers Name Role Phone Ingrid Santana RN Unavailable Unavailable Momo Forbes Primary Care Provider Encounter Details Date Type Department Care Team Description 01/21/2014 Results Only LABORATORY RESULTS Mingo Dangelo MD [address] [facility] [address] [place] [address] (Wo rk) Social History Tobacco [...] HLA Lukasz Class I Single Antigen (01/21/2014) [facility] gist Method Time Signature SA1 Test SA HI [...] Phon e Number [facility] Immunology/Histocompatabil [place], [place] [phone] ity [facility] [address] Building, Room 3-580 HISTOTRAC documented in this encounter Visit Diagnoses Not on filedocumented in this encounter Care Teams Security Orderly Relationship Specialty Start Date End Date Momo Forbes PCP - General Family Practice 01/02/14 [facility] [address] [place] [address] Ingrid Santana, RN Registered Nurse Transplant 02/10/12 documented as of this encounter
--- OUTSIDE RECORDS SUMMARY | 2022-05-21 13:28 | XMS_ITS | Encounter Summary ---
:1950 Author Organization [place] Address [facility] [place] [address] Care Team Providers Name Role Phone Ingrid Santana RN Unavailable Unavailable Momo Forbes Primary Care Provider Reason for Visit Reason Onset Date Comments Pre Visit Planning - Done 01/30/2014 EKG: pre op: [age] yo M, here for continued clearance for possib le kidney txp. Encounter Details Date Type Department Care Team Description 01/30/2014 PRE VISIT [facility] Barbara Bradley Pre Visit Planning - Physicians Orestes Licona MD Done (EKG: pre op: 63 [address] [place] M, [place] [address] continued clearance 4th Floor, Clinic 4B for possible kidney [facility] [address] txp.) [address] [place] [phone] Social History Tobacco Use Types Packs/Day Years [...] On HD since Aug 2011. No past IA, stress tests or coronary angiogorams. No chest [...] disease documented in this encounter Care Teams Precipitator Operator Relationship Specialty Start Date End Date Momo Forbes PCP - General Family Practice 01/02/14 [facility] [address] [place] [address] Ingrid Santana, RN Registered Nurse Transplant 02/10/12 documented as of this encounter
--- OUTSIDE RECORDS SUMMARY | 2022-05-21 13:28 | XMS_ITS | Encounter Summary ---
:1950 Author Organization [place] Address [address] [place] [address]. [place] [address] Care Team Providers Name Role Phone oTña Jones MD Primary Care Provider Ingrid Santana RN Unavailable Unavailable Momo Forbes Primary Care Provider Encounter Details Date Type Department Care Team Description 11/05/2013 Historic Results CONVERSION Provider, MD Marcela Social History Tobacco [...] filedocumented in this encounter Care Teams Industrial Service Technician Relationship Specialty Start Date End Date Toña Jones MD PCP - General Nephrology 11/25/11 01/01/14 Momo Forbes PCP - General Family Practice 01/02/14 [facility] [address] [place] [address] Ingrid Santana, RN Registered Nurse Transplant 02/10/12 documented as of this encounter
--- OUTSIDE RECORDS SUMMARY | 2022-05-21 13:28 | XMS_ITS | Encounter Summary ---
:1950 [address] [place] Address [facility] [place] [address] Care Team Providers Name Role Phone Ingrid Santana RN Unavailable Unavailable Momo Forbes Primary Care Provider Reason for Visit Reason Onset Date Comments Transplant 02/02/2014 Kidney Offer Encounter Details Date Type Department Care Team Description 02/02/2014 Telephone Transplant Surgery Carmelita Rosario Tran splant (Kidney Clinic RN Offer) 2nd Floor, Clinic [address]A [address] [phone] Social History Tobacco Use Types Packs/Day Years [...] on filedocumented in this encounter Care Teams Global Supply Chain Director Relationship Specialty Start Date End Date Momo Forbes PCP - General Family Practice 01/02/[address] [address] Ingrid Santana, RN Registered Nurse Transplant 02/10/12 documented as of this encounter
--- OUTSIDE RECORDS SUMMARY | 2022-05-21 13:28 | XMS_ITS | Encounter Summary ---
:1950 Author Organization [place] Address [address] [place] [address] Care Team Providers Name Role Phone Ingrid Santana RN Unavailable Unavailable Momo Forbes Primary Care Provider Encounter Details Date Type Department Care Team Description 01/21/2014 Results Only LABORATORY RESULTS Mingo Dangelo MD [address] [facility] [address] [place] [address] (Wo rk) Social History Tobacco [...] HLA Lukasz Class II Single Antigen (01/21/2014) [facility] gist Method Time Signature SA2 Test SA HI [...] Phon e Number [facility] Immunology/Histocompatabil [place], [place] [phone] ity [facility] [address] [facility] [address] Building, Room 3-580 HISTOTRAC documented in this encounter Visit Diagnoses Not on filedocumented in this encounter Care Teams Filter Tender Relationship Specialty Start Date End Date Momo Forbes PCP - General Family Practice 01/02/14 [facility] [address] [place], [place] [phone] Ingrid Santana, RN Registered Nurse Transplant 02/10/12 documented as of this encounter
--- OUTSIDE RECORDS SUMMARY | 2022-05-21 13:28 | XMS_ITS | Encounter Summary ---
:1950 Author Organization [place] Address [facility]ly [facility] [place] [address] Care Team Providers Name Role Phone Ingrid Santana RN Unavailable Unavailable Momo Forbes Primary Care Provider Encounter Details Date Type Department Care Team Description 01/21/2014 Results Only LABORATORY RESULTS Mingo Dangelo MD 420 [facility] 195 [place] [address] (Wo rk) Social History Tobacco [...] Results HLA Flow T/B Crossmatch Allo (01/21/2014) [facility] Method Time Signature Crossmatch Donor:[id number], ?Crossmatch Date:02/02/2014 HISTOTRAC Result (Note) Serum Date [...] Phon e Number [facility]U HLA LABORATORY Immunology/Histocompatabil [place], [place] [address] ity [facility] [address], Room 3-580 HISTOTRAC documented in this encounter Visit Diagnoses Not on filedocumented in this encounter Care Teams Filter Pulp Washer Relationship Specialty Start Date End Date Momo Forbes PCP - General Family Practice 01/02/14 [facility] [address] [place] [address] Ingrid Santana, RN Registered Nurse Transplant 02/10/12 documented as of this encounter
--- OUTSIDE RECORDS SUMMARY | 2022-05-21 13:29 | XMS_ITS | Encounter Summary ---
:1950 Author Organization [place] Address [address] [place] [address] Care Team Providers Name Role Phone Toña Jones MD Primary Care Provider Ingrid Santana RN Unavailable Unavailable Encounter Details Date Type Department Care Team Description 04/13/2012 Results Only LABORATORY RESULTS Mingo Dangelo MD 420 [facility] 195 [place] [address] (Wo rk) Social History Tobacco [...] HLA Lukasz Class II Single Antigen (04/13/2012) [facility] gist Method Time Signature SA2 [...] 04/13/2012 04/14/2012 12:1 6 PM CDT Mingo Dnagelo MD LAB - IMMUNOLOGY ORDERABLES Performing Organization Address City/State/ZIP Code Phon e Number [facility] HLA LABORATORY Immunology/Histocompatabil [place], [place] [address] ity [facility] [address] [facility] [address] Building, Room 3-580 HISTOTRAC documented in this encounter Visit Diagnoses Not on filedocumented in this encounter Care Teams Proc Tech Relationship Specialty Start Date End Date Toña Jones MD PCP - General Nephrology 11/25/11 01/01/14 Ingrid Santana RN Registered Nurse Transplant 02/10/12 documented as of this encounter
--- OUTSIDE RECORDS SUMMARY | 2022-05-21 13:29 | XMS_ITS | Encounter Summary ---
:1950 Author Organization [place] Address [facility]0 [facility] [address] Care Team Providers Name Role Phone Toña Jones MD Primary Care Provider Ingrid Santana RN Unavailable Unavailable Reason for Visit Reason Comments Transplant Evaluation Kidney transplant evaluation - chronic kidney disease Encounter Details Date Type Department Care Team Description 02/10/2012 Office Visit The Transplant Edda Cardenas, Ty Blink, DM (diabetes 2nd Floor, Clinic 2A MD mellitus), type 2 (H) Tommy Wilburn (Primar y Dx) [address] [phone] Social History Tobacco Use Types Packs/Day Years [...] this time. Patient to follow up with substance abuse prevention coordinator. documented in this encounter Plan of Treatment Not on filedocumented as of this encounter Visit Diagnoses Diagnosis DM (diabetes mellitus), type 2 (H) - Ana ashley Type II or unspecified type diabetes aung litus without mention of complication, not stated as uncontrolled documented in this encounter Care Teams Log Deckman Relationship Specialty Start Date End Date Toña Jones MD PCP - General Nephrology 11/25/11 01/01/14 Ingrid Santana RN Registered Nurse Transplant 02/10/12 documented as of this encounter
--- OUTSIDE RECORDS SUMMARY | 2022-05-21 13:29 | XMS_ITS | Encounter Summary ---
:1950 Author Organization [place] Address [address] [place] [address]. [place] [address] Care Team Providers Name Role Phone Toña Jones MD Primary Care Provider Ingrid Santana RN Unavailable Unavailable Momo Forbes Primary Care Provider Encounter Details Date Type Department Care Team Description 03/17/2012 Historic Results CONVERSION Provider, MD Marcela Social [...] Associated Diagnosis Comme nts PATHOLOGY RESULT - [facility] 03/17/2012 8:24 AM CDT SCAN - ARCHIVE documented in this encounter Results PATHOLOGY RESULT - HIM SCAN - ARCHIVE (03/17/2012 8:24 AM CDT) Specimen (Source) Anatomical Location Collection Method / Collectio n Time Received Time / Laterality Volume Narrative This result has an attachment that is no t available. Marcela Provider LAB - [facility]ATH SPECIAL DIAG OR DERABLES documented in this encounter Visit Diagnoses Not on filedocumented in this encounter Care Teams Chip Bin Conveyor Tender Relationship Specialty Start Date End Date Toña Jones MD PCP - General Nephrology 11/25/11 01/01/14 Momo Forbes PCP - General Family Practice 01/02/14 [facility] [address] [place] [address] Ingrid Santana, RN Registered Nurse Transplant 02/10/12 documented as of this encounter
--- OUTSIDE RECORDS SUMMARY | 2022-05-21 13:29 | XMS_ITS | Encounter Summary ---
:1950 Author Organization [place] Address [address] [place] [address] Care Team Providers Name Role Phone Toña Jones MD Primary Care Provider Ingrid Santana RN Unavailable Unavailable Encounter Details Date Type Department Care Team Description 02/10/2012 Hospital Encounter [facility] Jesus Cardenas MD Nutrition Services Martina Harley, RD 420 [facility] 84 [place] [address] 420 [facility] Joseph Quintana MD 717 [facility] 353 [facility] 1932 [place] [address] 84 [place] [address] Social History Tobacco Use Types Packs/Day Years [...] as needed Per patient on hold B tnnmngm-Y-xrphu acid Take 1 capsule by mouth 0 02/08/2014 (NEPHROCAPS) 1 MG daily. capsule lisinopril Take 40 mg by mouth 0 02/08 (PRINIVIL,ZESTRIL) 40 daily MG tablet METOPROLOL SUCCINATE Take 100 mg by mouth 0 02/08/2014 PO daily documented as of this encounter Progress Notes Martina Mcneill, RD - 02/10/2012 8:47 AM CDT [facility] Medical Nutrition Therapy Visit Type: [...] on filedocumented in this encounter Care Teams Shuttlecock Assembler Relationship Specialty Start Date End Date Toña Jones MD PCP - General Nephrology 11/25/11 01/01/14 Ingrid Santana RN Registered Nurse Transplant 02/10/12 documented as of this encounter
--- OUTSIDE RECORDS SUMMARY | 2022-05-21 13:29 | XMS_ITS | Encounter Summary ---
:1950 Author Organization [place] Address [facility] [place] [address] Care Team Providers Name Role Phone Toña Jones MD Primary Care Provider Ingrid Santana RN Unavailable Unavailable Encounter Details Date Type Department Care Team Description 08/25/2012 Results Only LABORATORY RESULTS Barbara Bradley MD [address] [place], [place] [address] Social History Tobacco Use [...] AM Results f or this CROSSMATCH ALLO FELT CEMENTER procedure ar e in the results section. documented in this encounter Results HLA Flow T/B Crossmatch Allo (08/25/2012 9:49 AM FELT CEMENTER) [facility] Method Time Signature Crossmatch Donor:ABRAHAM HICKEY [...] / / Volume Laterality 08/25/2012 9:49 AM 3 9:06 FELT CEMENTER AM FELT CEMENTER Barbara Bradley MD LAB - IMMUNOLOGY ORDERABLES Performing Organization Address City/State/ZIP Code Phon e Number [facility] HLA LABORATORY Immunology/Histocompatabil [place], [place] [address] ity [facility] [address] [facility] [address] Building, Room 3-580 HISTOTRAC documented in this encounter Visit Diagnoses Not on filedocumented in this encounter Care Teams Business Process Analyst Relationship Specialty Start Date End Date Toña Jones MD PCP - General Nephrology 11/25/11 01/01/14 Ingrid Santana, BOGDAN Registered Nurse Transplant 02/10/12 documented as of this encounter
--- OUTSIDE RECORDS SUMMARY | 2022-05-21 13:29 | XMS_ITS | Encounter Summary ---
:1950 Author Organization [place] Address [address] [place] [address] Care Team Providers Name Role Phone Toña Jones MD Primary Care Provider Ingrid Santana RN Unavailable Unavailable Encounter Details Date Type Department Care Team Description 04/13/2012 Results Only LABORATORY RESULTS Mingo Dangelo MD 420 [facility] 195 [place] [address] (Wo rk) Social History Tobacco [...] HLA Lukasz Class I Single Antigen (04/13/2012) [facility] gist Method Time Signature SA1 Test Single [...] Phon e Number UU HLA LABORATORY Immunology/Histocompatabil [place], [place] [address] ity [facility] [address], Room 3-580 HISTOTRAC documented in this encounter Visit Diagnoses Not on filedocumented in this encounter Care Teams Interpreter Relationship Specialty Start Date End Date Toña Jones MD PCP - General Nephrology 11/25/11 01/01/14 Ingrid Santana RN Registered Nurse Transplant 02/10/12 documented as of this encounter
--- OUTSIDE RECORDS SUMMARY | 2022-05-21 13:29 | XMS_ITS | Encounter Summary ---
:1950 Author Organization [place] Address [address] [place] [address] Care Team Providers Name Role Phone Toña Jones MD Primary Care Provider Ingrid Santana RN Unavailable Unavailable Encounter Details Date Type Department Care Team Description 02/08/2012 Results Only LABORATORY RESULTS Jeff Joshi MD [facility] 353 [place] [address] (Wo rk) Social History Tobacco [...] II Single Antigen (02/08/2012 7:07 AM CDT) [facility] Method Time Signature SA2 Test Single [...] Phon e Number [facility] HLA LABORATORY Immunology/Histocompatabil [place], [place] [address] ity [facility] [address], Room 3-580 HISTOTRAC documented in this encounter Visit Diagnoses Not on filedocumented in this encounter Care Teams Talent Program Manager Relationship Specialty Start Date End Date Toña Jones MD PCP - General Nephrology 11/25/11 01/01/14 Ingrid Santana RN Registered Nurse Transplant 02/10/12 documented as of this encounter
--- OUTSIDE RECORDS SUMMARY | 2022-05-21 13:29 | XMS_ITS | Encounter Summary ---
:1950 Author Organization [place] Address [facility] [place] [address] Care Team Providers Name Role Phone Toña Jones MD Primary Care Provider Ingrid Santana RN Unavailable Unavailable Reason for Visit Reason Comments Social Work Services Encounter Details Date Type Department Care Team Description 02/10/2012 Office Visit The Transplant Akanksha Stacy Organ transplant 2nd Floor, Clinic 2A SHALOM Zacarias candidate (Primary [facility] Dx) [address] [phone] Social History Tobacco Use Types Packs/Day Years [...] old Duration of Interview: 40 min Process: Uxxn-cr-Wclr Interview (counseling < 50%) Present at Appointment: Latrell, his brother Kiran and Latrell Zamora, Transplant Financial Metal Wire Coating OperatorStudent Outreach Coordinator Worker: CECY Ortiz, [facility] Date: February 10, 2012 Type of transplant: Kidney Donor type: Latrell indicated that he does not know of any potential donors at this time. Cadaver Prior Transplants: No Status of Transplant: Current Living Situation Location: [address] [place] [phone] With Whom: Alone Family/ Social Support: Kiran lives in [place], [place]. Available, helpful Committed relationship: Latrell indicated [...] Income Savings Insurance Latrell has BC/BS through [employer] until 07/22/13. He has also applied for [...] that assist with fund raising. Discussed asking clothing trades workers for assistance with cobra premiums and that [...] No Adequate Finances Yes Signature: CECY Ortiz, [facility] Title: Clinical Traffic Engineer documented in this encounter Plan of Treatment Not on filedocumented as of this encounter Visit Diagnoses Diagnosis Organ transplant candidate - Primary Awaiting organ transplant status documented in this encounter Care Teams Building Equipment Inspector Relationship Specialty Start Date End Date Toña Jones MD PCP - General Nephrology 11/25/11 01/01/14 Ingrid Santana RN Registered Nurse Transplant 02/10/12 documented as of this encounter
--- OUTSIDE RECORDS SUMMARY | 2022-05-21 13:29 | XMS_ITS | Encounter Summary ---
:1950 Author Organization [place] Address [address] [place] [address] Care Team Providers Name Role Phone Toña [...] HLA Lukasz Class I Single Antigen (04/16/2013) [facility] gist Method Time Signature SA1 [...] Phon e Number [facility] HLA LABORATORY Immunology/Histocompatabil [place], [place] [address] ity [facility] 500 [facility] [address] Building, Room 3-580 HISTOTRAC documented in this encounter Visit Diagnoses Not on filedocumented in this encounter Care Teams Proposal Development Manager Relationship Specialty Start Date End Date Toña Jones MD PCP - General Nephrology 11/25/11 01/01/14 Ingrid Santana RN Registered Nurse Transplant 02/10/12 documented as of this encounter
--- OUTSIDE RECORDS SUMMARY | 2022-05-21 13:29 | XMS_ITS | Encounter Summary ---
:1950 Author Organization [place] Address [facility] [place] [address] Care Team Providers Name Role Phone Toña Jones MD Primary Care Provider Ingrid Santana RN Unavailable Unavailable Reason for Visit Reason Comments Transplant Evaluation kidney Encounter Details Date Type Department Care Team Description 02/10/2012 Office Visit Nephrology Darian Joshi MD 717 [facility] 353 [place], [place] [address] Pre-transplant 2nd Floor, Clinic 2A Joseph Quintana MD 717 [facility] 353 [facility] [address] [place], [place] [address] evaluation for Sanders Mimaalyssa chronic kidney Building disease (Primary Dx) [address] [place] [phone] Social History Tobacco Use Types Packs/Day Years [...] Type: Incenter HD; and Dialysis unit: [facility] Primary Licensed Insurance Sales Agent: Dr. 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 Yes Reported, Patient B wwdofrg-D-hrurt acid (NEPHROCAPS) 1 MG capsule Take 1 [...] hour(s)) ROUTINE UA WITH MICROSCOPIC Collection Time 6/19/12 7:06 AM Component Value Range Color Urine Light Yellow Appearance Urine Clear Glucose Urine 300 (*) NEG (mg/dL) Bilirubin Urine Negative NEG Ketones Urine Negative NEG (mg/dL) Specific [place] Urine 1.010 1.003 - 1.035 Blood Urine [...] Report Value: Patient Name: ELINOR GUTHRIE MR#: [id number] Specimen #: [id number] Collected: 02/08/2012 07:07 Received: 02/08/2012 09:00 Reported: 02/11/2012 14:03 Ordering Phy(s): DARIAN JOSHI TEST(S) REQUESTED: A: Factor 5 Leiden and Factor 2 by PCR B: DNA Isolation, High purity extraction SPECIMEN DESCRIPTION: Blood METHODOLOGY: The regions of genomic DNA containing the P3179T Factor 5 gene mutation (Factor V Leiden) and the Factor 2(Prothrombin [id number]) gene mutation were simultaneously amplified using the polymerase chain reaction. The amplified products were digested with restriction endonuclease TaqI and products were analyzed by gel electrophoresis. RESULTS: FACTOR 5-LEIDEN RESULTS: Mutation analyzed: 1691G>A Factor 5 Mutation Interpretation: ABSENT Factor 5 Mutation genotype: G/G FACTOR 2/PROTHROMBIN RESULTS: Mutation analyzed: 89303X>A Factor 2 Mutation Interpretation: ABSENT Factor 2 Mutation genotype: G/G INTERPRETATION: The patient is negative for the Factor 5 mutation and negative for the Factor 2 mutation. This test was developed and its performance determined by the [facility]. It has not [...] By: Liliya Stone MD TESTING LAB LOCATION: [address] [address] COLLECTION SITE: Client: [facility] Location: [facility]) HLA LUKASZ CLASS I SINGLE [...] of an antiphospholipid syndrome, recommend anticardiolipin and ojzh-8-djxwuolcrmwb (IgG and IgM) antibody tests. Dee Duenas M.D. [phone] 02-09-2012. APTT'S: Seconds Reagent = Stago LS [...] Range Ventricular Rate 60 Atrial Rate 60 AK Interval 186 QRS Duration 104 QT 440 QTc 440 P [place] 36 R AXIS 0 T [place] 36 Interpretation ECG Sinus rhythm Interpretation ECG [...] Function Test Value: Name: ELINOR GUTHRIE ID: [id number] Doctor: DONYA THOMAS Height: 72.00 in Age: [...] INTERPRETATION: The FVC, FEV1, FEV1/FVC ratio and WZK82-34% are within normal limits. The inspiratory flow rates are within normal limits. The MVV is within normal limits. Lung volumes are within normal limits. Diffusion capacity is normal. IMPRESSION: Normal spirometry Normal lung volumes Normal diffusion capacity This preliminary report should not be used clinically unless reviewed and signed by a physician. [facility] (B) Collection Time 02/08/12 1:13 PM Component Value [...] 02/10/2012 10:00 AM CDT >> AUSTEN FAUSTIN [facility] Feb 10, 2012 9:54 AM Took igor cc, reviewed meds and allergies documented in this encounter Plan of Treatment Not on filedocumented as of this encounter Visit Diagnoses Diagnosis Pre-transplant evaluation for chronic ki dney disease - Primary Other specified pre-operative examinatio n documented in this encounter Care Teams Engineer Of System Development Relationship Specialty Start Date End Date Toña Jones MD PCP - General Nephrology 11/25/11 01/01/14 Ingrid Santana, RN Registered Nurse Transplant 02/10/12 documented as of this encounter
--- OUTSIDE RECORDS SUMMARY | 2022-05-21 13:29 | XMS_ITS | Encounter Summary ---
:1950 Author Organization [place] Address [address] [place] [address] Care Team Providers Name Role Phone Toña Jones MD Primary Care Provider Ingrid Santana RN Unavailable Unavailable Reason for Visit (Routine) - Closed Specialty Diagnoses / Procedures Referred By Contact Refer red To Contact Radiology Diagnoses NM MPI LEXISCAN Procedure Notes: UNSPECIFIED ESSENTIAL HYPERTENSION,PREOPERATIVE EXAMINATION, UNSPECIFIED, Uu Nuclear Medicine Procedures RADIOLOGY 500 [place] [address] Phone: Referral ID Status Reason Start Date Expiration Date Visits Requ ested Visits Authorized [id number] Closed 02/11/2012 02/10/2013 1 1 Encounter Details Date Type Department Care Team Description 02/15/2012 Hospital Encounter [facility] Barbara Bradley Imaging MD [place] [address] [facility] [address] [place], [place] [address] [phone] Social History Tobacco Use Types Packs/Day Years [...] as needed Per patient on hold B heitdwo-E-mkqyn acid Take 1 capsule by mouth 0 02/08/2014 (NEPHROCAPS) 1 MG daily. capsule lisinopril Take 40 mg by mouth 0 02/08 (PRINIVIL,ZESTRIL) 40 daily MG tablet METOPROLOL SUCCINATE Take 100 mg by mouth 0 02/08/2014 PO daily documented as of this encounter Plan of Treatment Not on filedocumented as of this encounter Visit Diagnoses Not on filedocumented in this encounter Care Teams Talent Advisor Relationship Specialty Start Date End Date Toña Jones MD PCP - General Nephrology 11/25/11 01/01/14 Ingrid Santana, RN Registered Nurse Transplant 02/10/12 documented as of this encounter
--- OUTSIDE RECORDS SUMMARY | 2022-05-21 13:29 | XMS_ITS | Encounter Summary ---
:1950 Author Organization [place] Address [address] [place] [address] Care Team Providers Name Role Phone Toña Jones MD Primary Care Provider Ingrid Santana RN Unavailable Unavailable Encounter Details Date Type Department Care Team Description 01/17/2013 Results Only LABORATORY RESULTS Barbara Bradley MD [address] [place], [place] [address] Social History Tobacco Use [...] HLA Lukasz Class II Single Antigen (01/17/2013) [facility] Method Time Signature SA2 Test Single [...] Phon e Number [facility]U HLA LABORATORY Immunology/Histocompatabil [place], [place] [address] [facility] [address] [facility] [address] Building, Room 3-580 HISTOTRAC documented in this encounter Visit Diagnoses Not on filedocumented in this encounter Care Teams Surfacing Machine Operator Relationship Specialty Start Date End Date Toña Jones MD PCP - General Nephrology 11/25/11 01/01/14 Ingrid Santana RN Registered Nurse Transplant 02/10/12 documented as of this encounter
--- OUTSIDE RECORDS SUMMARY | 2022-05-21 13:29 | XMS_ITS | Encounter Summary ---
:1950 Author Organization [place] Address [facility] [place] [facility] [place] [address] Care Team Providers Name Role Phone Toña [...] HLA Lukasz Class II Single Antigen (04/16/2013) [facility] Method Time Signature SA2 Test Single [...] Phon e Number [facility] HLA LABORATORY Immunology/Histocompatabil [place], [place] [address] ity [facility] 500 [facility] [address] Building, Room 3-580 HISTOTRAC documented in this encounter Visit Diagnoses Not on filedocumented in this encounter Care Teams Simulation Specialist Relationship Specialty Start Date End Date Toña Jones MD PCP - General Nephrology 11/25/11 01/01/14 Ingrid Santana, RN Registered Nurse Transplant 02/10/12 documented as of this encounter
--- OUTSIDE RECORDS SUMMARY | 2022-05-21 13:29 | XMS_ITS | Encounter Summary ---
:1950 Author Organization [place] Address [address] [facility] [place] [address] Care Team Providers Name Role Phone Toña Jones MD Primary Care Provider Ingrid Santana RN Unavailable Unavailable Reason for Visit (Routine) - Closed Specialty Diagnoses / Procedures Referred By Contact Refer red To Contact Cardiology Diagnoses NM STRESS LEXISCAN Procedure Notes: UNSPECIFIED ESSENTIAL HYPERTENSION,PREOPERATIVE EXAMINATION, UNSPECIFIED, Zz Uu Electrocard Procedures RADIOLOGY 500 [place] [address] Referral ID Status Reason Start Date Expiration Date Visits Requ ested Visits Authorized [id number] Closed 02/11/2012 02/10/2013 1 1 Encounter Details Date Type Department Care Team Description 02/15/2012 Hospital Encounter [facility] ELECTROCARD Barbara Bradley 500 [facility] [place] [address] [address] [place], [place] [address] Social History Tobacco Use [...] as needed Per patient on hold B lvpnhbk-G-nqolm acid Take 1 capsule by mouth 0 [...] Test documented in this encounter Care Teams Luggage Repairer Relationship Specialty Start Date End Date Toña Jones MD PCP - General Nephrology 11/25/11 01/01/14 Ingrid Santana, RN Registered Nurse Transplant 02/10/12 documented as of this encounter
--- OUTSIDE RECORDS SUMMARY | 2022-05-21 13:29 | XMS_ITS | Encounter Summary ---
:1950 Author Organization [place] Address [address] [place] [address] Care Team Providers Name Role Phone Toña Jones MD Primary Care Provider Ingrid Santana RN Unavailable Unavailable Encounter Details Date Type Department Care Team Description 10/11/2012 Results Only LABORATORY RESULTS Barbara Bradley MD [address] [place], [place] [address] Social History Tobacco Use [...] HLA Lukasz Class I Single Antigen (10/11/2012) [facility] Method Time Signature SA1 Test Single [...] / Volume Laterality 10/11/2012 10/12/2012 1:03 PM SCHOOL BUS DRIVER Barbara Bradley MD LAB - IMMUNOLOGY ORDERABLES Performing Organization Address City/State/ZIP Code Phon e Number [facility] HLA LABORATORY Immunology/Histocompatabil [place], [place] [address] ity [facility] [address] [facility] [address] Building, Room 3-580 HISTOTRAC documented in this encounter Visit Diagnoses Not on filedocumented in this encounter Care Teams Shipping Order Clerk Relationship Specialty Start Date End Date Toña Jones MD PCP - General Nephrology 11/25/11 01/01/14 Ingrid Santana RN Registered Nurse Transplant 02/10/12 documented as of this encounter
--- OUTSIDE RECORDS SUMMARY | 2022-05-21 13:29 | XMS_ITS | Encounter Summary ---
:1950 Author Organization [place] Address [address] [place] [address] Care Team Providers Name Role Phone Toña Jones MD Primary Care Provider Ingrid Santana RN Unavailable Unavailable Encounter Details Date Type Department Care Team Description 02/28/2013 Orders Only [facility] Molly Sanderson Organ transplant [address] candidate (Primary Dx) [place] [id number] Social History Tobacco Use Types Packs/Day Years [...] status documented in this encounter Care Teams Investment Banking Manager Relationship Specialty Start Date End Date Toña Jones MD PCP - General Nephrology 11/25/11 01/01/14 Ingrid Santana RN Registered Nurse Transplant 02/10/12 documented as of this encounter
--- OUTSIDE RECORDS SUMMARY | 2022-05-21 13:29 | XMS_ITS | Encounter Summary ---
:1950 Author Organization [place] Address [address] [place] [address]. [place] [address] Care Team Providers Name Role Phone Toña Jones MD Primary Care Provider Ingrid Santana RN Unavailable Unavailable Momo Forbes Primary Care Provider Encounter Details Date Type Department Care Team Description 02/18/2012 Abstract [facility] 2[facility], Clinic [address] [phone] Social History Tobacco Use [...] in this encounter Care Teams Director Of Market Research Relationship Specialty Start Date End Date Toña Jones MD PCP - General Nephrology 11/25/11 01/01/14 Momo Forbes PCP - General Family Practice 01/02/14 [facility] [address] [place] [address] Ingrid Santana, RN Registered Nurse Transplant 02/10/12 documented as of this encounter
--- OUTSIDE RECORDS SUMMARY | 2022-05-21 13:29 | XMS_ITS | Encounter Summary ---
:1950 Author Organization [place] Address [address] [place] [address]. [place] [address] Care Team Providers Name Role Phone Toña Jones MD Primary Care Provider Ingrid Santana RN Unavailable Unavailable Momo Forbes Primary Care Provider Encounter Details Date Type Department Care Team Description 03/26/2013 Historic Results CONVERSION Provider, MD Marcela Social [...] filedocumented in this encounter Care Teams Oil And Gas Principal Relationship Specialty Start Date End Date Toña Jones MD PCP - General Nephrology 11/25/11 01/01/14 Momo Forbes PCP - General Family Practice 01/02/14 [facility] [address] [place] [address] Ingrid Santana, RN Registered Nurse Transplant 02/10/12 documented as of this encounter
--- OUTSIDE RECORDS SUMMARY | 2022-05-21 13:29 | XMS_ITS | Encounter Summary ---
:1950 Author Organization [place] Address [address] [place] [address]. [place] [address] Care Team Providers Name Role Phone Toña Jones MD Primary Care Provider Ingrid Santana RN Unavailable Unavailable Momo Forbes Primary Care Provider Encounter Details Date Type Department Care Team Description 02/05/2013 Historic Results CONVERSION Provider, MD Marcela Social [...] filedocumented in this encounter Care Teams Sprinkler Inspector Relationship Specialty Start Date End Date Toña Jones MD PCP - General Nephrology 11/25/11 01/01/14 Momo Forbes PCP - General Family Practice 01/02/14 [facility] [address] [place] [address] Ingrid Santana, RN Registered Nurse Transplant 02/10/12 documented as of this encounter
--- OUTSIDE RECORDS SUMMARY | 2022-05-21 13:29 | XMS_ITS | Encounter Summary ---
:1950 Author Organization [place] Address [address] [place] [address] Care Team Providers Name Role Phone Toña Jones MD Primary Care Provider Ingrid Santana RN Unavailable Unavailable Encounter Details Date Type Department Care Team Description 10/11/2012 Results Only LABORATORY RESULTS Barbara Bradley MD [address] [place], [place] [address] Social History Tobacco [...] HLA Lukasz Class II Single Antigen (10/11/2012) [facility] Method Time Signature SA2 Test Single [...] / Volume Laterality 10/11/2012 10/12/2012 1:03 PM VESSEL SLAGMAN Barbara Bradley MD LAB - IMMUNOLOGY ORDERABLES Performing Organization Address City/State/ZIP Code Phon e Number [facility] Immunology/Histocompatabil [place], [place] [address] ity [facility] [address] Building, Room 3-580 HISTOTRAC documented in this encounter Visit Diagnoses Not on filedocumented in this encounter Care Teams Industrial Specialist Relationship Specialty Start Date End Date Toña Jones MD PCP - General Nephrology 11/25/11 01/01/14 Ingrid Santana RN Registered Nurse Transplant 02/10/12 documented as of this encounter
--- OUTSIDE RECORDS SUMMARY | 2022-05-21 13:29 | XMS_ITS | Encounter Summary ---
:1950 Author Organization [place] Address [address] [place] [address] Care Team Providers Name Role Phone Toña Jones MD Primary Care Provider Ingrid Santana RN Unavailable Unavailable Encounter Details Date Type Department Care Team Description 02/15/2012 Hospital Encounter [facility] Bradley[facility]bara Unsp ecified essential hypertension; [facility] Imaging MD Monae Pre-operative clearance [address] [place] [phone] Social History Tobacco Use Types Packs/Day [...] as needed Per patient on hold B oyrxbjn-Z-cmaaf acid Take 1 capsule by mouth 0 [...] unspecified documented in this encounter Care Teams Telephone Worker Relationship Specialty Start Date End Date Toña Jones MD PCP - General Nephrology 11/25/11 01/01/14 Ingrid Santana, RN Registered Nurse Transplant 02/10/12 documented as of this encounter
--- OUTSIDE RECORDS SUMMARY | 2022-05-21 13:29 | XMS_ITS | Encounter Summary ---
:1950 Author Organization [place] Address [address] [place] [address]. [place] [address] Care Team Providers Name Role Phone Toña Jones MD Primary Care Provider Ingrid Santana RN Unavailable Unavailable Momo Forbes Primary Care Provider Encounter Details Date Type Department Care Team Description 12/25/2012 Historic Results CONVERSION Provider, MD Marcela Social [...] attachment that is no t available. Marcela Cordreo MD LAB - BLOOD ORDERABLES documented in this encounter Visit Diagnoses Not on filedocumented in this encounter Care Teams Tin Worker Relationship Specialty Start Date End Date Toña Jones MD PCP - General Nephrology 11/25/11 01/01/14 Momo Forbes PCP - General Family Practice 01/02/14 [facility] [address] [place] [address] Ingrid Santana, RN Registered Nurse Transplant 02/10/12 documented as of this encounter
--- OUTSIDE RECORDS SUMMARY | 2022-05-21 13:29 | XMS_ITS | Encounter Summary ---
:1950 Author Organization [place] Address [address] [facility] [place] [address] Care Team Providers Name Role Phone Toña Jones MD Primary Care Provider Ingrid Santana RN Unavailable Unavailable Encounter Details Date Type Department Care Team Description 02/10/[address] [facility] Anita Joshi MD Diabetes mellitus, type 2 (H); Clinic Imaging [address] [facility] End stage renal disease (H) [facility] [address] [place] [address] 1st Floor, Clinic [address] [place] [address] [address] Social History Tobacco Use Types [...] disease documented in this encounter Care Teams Supercharger Repair Supervisor Relationship Specialty Start Date End Date Toña Jones MD PCP - General Nephrology 11/25/11 01/01/14 Ingrid Santana, RN Registered Nurse Transplant 02/10/12 documented as of this encounter
--- OUTSIDE RECORDS SUMMARY | 2022-05-21 13:29 | XMS_ITS | Encounter Summary ---
:1950 Author Organization [place] Address [address] [place] [address] Care Team Providers Name Role Phone Toña Jones MD Primary Care Provider Ingrid Santana RN Unavailable Unavailable Encounter Details Date Type Department Care Team Description 07/30/2013 Results Only LABORATORY RESULTS Mingo Dangelo MD [address] [facility] [address] [place] [address] (Wo rk) Social History Tobacco [...] HLA Lukasz Class I Single Antigen (07/30/2013) [facility] gist Method Time Signature SA1 Test [...] / Volume Laterality 07/30/2013 07/31/2013 2:10 PM AUTOMOTIVE GLASS TECHNICIAN Mingo Dangelo MD LAB - IMMUNOLOGY ORDERABLES Performing Organization Address City/State/ZIP Code Phon e Number [facility] Immunology/Histocompatabil [place], [place] [address] ity [facility] Med Ctr [address] Building, Room 3-580 HISTOTRAC documented in this encounter Visit Diagnoses Not on filedocumented in this encounter Care Teams Medical Sonographer Relationship Specialty Start Date End Date Toña Jones MD PCP - General Nephrology 11/25/11 01/01/14 Ingrid Santana RN Registered Nurse Transplant 02/10/12 documented as of this encounter
--- OUTSIDE RECORDS SUMMARY | 2022-05-21 13:29 | XMS_ITS | Encounter Summary ---
:1950 Author Organization [place] Address [address] [facility] [place] [address] Care Team Providers Name Role Phone Toña Jones MD Primary Care Provider Ingrid Santana RN Unavailable Unavailable Reason for Visit Reason Comments Heart Problem Consult prior to kidney proctor splant, needs EKG please. Encounter Details Date Type Department Care Team Description 02/10/2012 Office Visit Justice Barbara Bradley Unspecified es sential hypertension; [facility] [place] Pre-operative clearance Heart [address] [place] [address] Building [phone] 4th Floor, Clinic 4B (Work) [address] [address] Social History Tobacco Use Types [...] Stay Well and Call Maribel Nicole RN [phone] with any questions or concerns. You are scheduled for an Adenosine Stress Test 02/15/2012: Please check into the [facility] Waiting Room at 12:15pm for [...] and you need to reschedule, please call [phone]. January 2012Tuesday 1 2 3 4 5 6 7 8 9 10 11 12 13 14 15 16 17 18 19 [facility] NEW 6:30 AM (30 min.) Evaluation, [facility] Transplant [facility] FULL PULMONARY FUNCTION 8:00 AM (60 min.) 2, [facility] [place] Pulmonary Function Laboratory RADIOLOGY 8:05 AM (10 min.) Uicxr2 [facility] Diagnostic Imaging [facility] PREP KIDNEY/PANCREAS TX 9:00 AM (120 min.) Angela Lopez, [facility], [place], Patient [facility] TRANSPLANT CLASS KIDNEY 9:00 AM (90 min.) Class, [facility] Transplant [facility] Transplant [facility] ANIMAL EVISCERATOR 11:00 AM (30 min.) Coordinator, [facility] Care [facility] Transplant [facility] PRE-TX KIDNEY EVAL 11:00 AM (30 min.) Donya Thomas MD Transplant Surgery LAB 11:30 AM (15 min.) Pwb, Op Lab [facility], Lab RADIOLOGY 1:30 PM (55 min.) Uecvc1 [facility], Echocardiography 20 21 [facility] RETURN 7:00 AM (15 min.) Evaluation, [facility] Txc [facility] RADIOLOGY 7:00 AM (60 min.) Uicusr2 [facility] Diagnostic Imaging CONSULT HOD 8:00 AM (60 min.) Martina Mcneill, JOHN [facility], Nutrition Services [facility] SOCIAL WORK 9:00 AM (60 min.) 2, [facility] Tx Consult Room [facility] PRE-TX KIDNEY EVAL 10:00 AM (60 min.) Joseph Quintana MD Nephrology [facility] PANCREAS-KIDNEY TX W/U 11:30 AM (30 min.) Barbara Bradley MD [facility] Physicians Heart 22 23 24 25 26 RADIOLOGY 12:30 PM (15 min.) Uninj [facility], Nuclear Medicine RADIOLOGY 1:15 PM (20 min.) Unr1 [facility], Nuclear Medicine RADIOLOGY 1:40 PM (30 min.) [facility] ELECTROCARD[facility] RADIOLOGY 3:10 PM (20 min.) Unr1 [facility], Nuclear Medicine 27 28 29 20 [...] 1 tablet by mouth daily. ??? 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 Perez MD bench examiner. Divisions of Cardiology [facility] Patient Care Team: Toña Jones MD as PCP - General (Nephrology) Ingrid Santana RN as Registered Nurse (Transplant) DONYA THOMAS documented in this encounter Plan of Treatment Not on filedocumented as of this encounter Visit Diagnoses Diagnosis Unspecified essential hypertension Pre-operative clearance Preoperative examination, unspecified documented in this encounter Care Teams Senior Corporate Recruiter Relationship Specialty Start Date End Date Toña Jones MD PCP - General Nephrology 11/25/11 01/01/14 Ingrid Santana RN Registered Nurse Transplant 02/10/12 documented as of this encounter
--- OUTSIDE RECORDS SUMMARY | 2022-05-21 13:29 | XMS_ITS | Encounter Summary ---
:1950 Author Organization [place] Address [address] [place] [address] Care Team Providers Name Role Phone Toña Jones MD Primary Care Provider Ingrid Santana RN Unavailable Unavailable Reason for Visit (Routine) - Closed Specialty Diagnoses / Procedures Referred By Contact Refer red To Contact Radiology Diagnoses NM MPI SCAN Procedure Notes: UNSPECIFIED ESSENTIAL HYPERTENSION,PREOPERATIVE EXAMINATION, UNSPECIFIED, [facility] Procedures RADIOLOGY [address] [place] [address] Phone: Referral ID Status Reason Start Date Expiration Date Visits Requ ested Visits Authorized [id number] Closed 02/11/2012 02/10/2013 1 1 Encounter Details Date Type Department Care Team Description 02/15/2012 Hospital Encounter [facility] Barbara Bradley ESRD (end stage [facility] Imaging MD Monae renal disease) (H) [address] [facility] [address] [place] [address] Social History Tobacco Use [...] as needed Per patient on hold B nboqleq-N-edpbb acid Take 1 capsule by mouth 0 [...] disease documented in this encounter Care Teams Instructional Technology Coach Relationship Specialty Start Date End Date Toña Jones MD PCP - General Nephrology 11/25/11 01/01/14 Ingrid Santana, RN Registered Nurse Transplant 02/10/12 documented as of this encounter
--- OUTSIDE RECORDS SUMMARY | 2022-05-21 13:29 | XMS_ITS | Encounter Summary ---
:1950 Author Organization [place] Address [address] [place] [address] Care Team Providers Name Role Phone Toña Jones MD Primary Care Provider Ingrid Santana RN Unavailable Unavailable Encounter Details Date Type Department Care Team Description 11/05/2013 Results Only LABORATORY RESULTS Barbara Bradley MD [address] [place], [place] [address] Social History Tobacco Use [...] I Single Antigen (11/05/2013 7:20 AM CDT) [facility] Method Time Signature SA1 Test SA [...] Phon e Number [facility] Immunology/Histocompatabil [place], [place] [address] ity [facility] [address] [facility] [address] Building, Room 3-580 HISTOTRAC documented in this encounter Visit Diagnoses Not on filedocumented in this encounter Care Teams Content Development Manager Relationship Specialty Start Date End Date Toña Jones MD PCP - General Nephrology 11/25/11 01/01/14 Ingrid Santana, RN Registered Nurse Transplant 02/10/12 documented as of this encounter
--- OUTSIDE RECORDS SUMMARY | 2022-05-21 13:29 | XMS_ITS | Encounter Summary ---
:1950 Author Organization [place] Address [address] [place] [address] Care Team Providers Name Role Phone Toña Jones MD Primary Care Provider Ingrid Santana RN Unavailable Unavailable Encounter Details Date Type Department Care Team Description 07/03/2012 Results Only LABORATORY RESULTS Barbara Bradley MD [address] [place], [place] [address] Social History Tobacco Use [...] HLA Lukasz Class I Single Antigen (07/03/2012) [facility] Method Time Signature SA1 Test Single Antigen [...] / Volume Laterality 07/03/2012 07/05/2012 1:57 PM GREASER AND OILER Barbara Bradley MD LAB - IMMUNOLOGY ORDERABLES Performing Organization Address City/State/ZIP Code Phon e Number [facility] Immunology/Histocompatabil [place], [place] [address] ity [facility] C[facility] [address] [facility] [address] Building, Room 3-580 HISTOTRAC documented in this encounter Visit Diagnoses Not on filedocumented in this encounter Care Teams Property Inspector Relationship Specialty Start Date End Date Toña Jones MD PCP - General Nephrology 11/25/11 01/01/14 Ingrid Santana RN Registered Nurse Transplant 02/10/12 documented as of this encounter
--- OUTSIDE RECORDS SUMMARY | 2022-05-21 13:29 | XMS_ITS | Encounter Summary ---
:1950 Author Organization [place] Address [facility] [place] [address] Care Team Providers Name Role Phone Toña Jones MD Primary Care Provider Ingrid Santana RN Unavailable Unavailable Encounter Details Date Type Department Care Team Description 07/03/2012 Results Only LABORATORY RESULTS Barbara Bradley MD [address] [place], [place] [address] Social History Tobacco Use [...] in this encounter Results Virtual Crossmatch (07/03/2012) [facility] Method Time Signature Crossmatch Donor:GEOVANYKATHARINEPOOJA FigueredoABRAHAM ? Crossmatch Date:07/24/2012 HISTOTRAC Result (Note) Serum Date ??Test ?Result ? Donor Specific Antibody ?Comments 07/03/2012 ??Class I/Virtxm1 ? DSA ?None ? 07/03/2012 ??Class II/Virtxm 1 ?DSA ?None ? Specimen (Source) Anatomical Collection Method Collection Time Re ceived Time Location / / Volume Laterality 07/03/2012 07/05/2012 1:57 PM FAST FOOD TEAM MEMBER Barbara Bradley MD LAB - IMMUNOLOGY ORDERABLES Performing Organization Address City/State/ZIP Code Phon e Number [facility] Immunology/Histocompatabil [place], [place] [address] [facility] [address] Building, Room 3-580 HISTOTRAC documented in this encounter Visit Diagnoses Not on filedocumented in this encounter Care Teams Knit Tubing Dyer Relationship Specialty Start Date End Date Toña Jones MD PCP - General Nephrology 11/25/11 01/01/14 Ingrid Santana RN Registered Nurse Transplant 02/10/12 documented as of this encounter
--- OUTSIDE RECORDS SUMMARY | 2022-05-21 13:29 | XMS_ITS | Encounter Summary ---
:1950 Author Organization [place] Address [address] [place] [address] Care Team Providers Name Role Phone Toña Jones MD Primary Care Provider Ingrid Santana RN Unavailable Unavailable Encounter Details Date Type Department Care Team Description 01/17/2013 Results Only LABORATORY RESULTS Barbara Bradley MD [address] [place], [place] [address] Social History Tobacco Use [...] HLA Lukasz Class I Single Antigen (01/17/2013) [facility] Method Time Signature SA1 Test Single [...] Phon e Number [facility] Immunology/Histocompatabil [place], [place] [address] ity [facility] [address] [facility] [address] Building, Room 3-580 HISTOTRAC documented in this encounter Visit Diagnoses Not on filedocumented in this encounter Care Teams Finisher Brush Relationship Specialty Start Date End Date Toña Jones MD PCP - General Nephrology 11/25/11 01/01/14 Ingrid Santana RN Registered Nurse Transplant 02/10/12 documented as of this encounter
--- OUTSIDE RECORDS SUMMARY | 2022-05-21 13:29 | XMS_ITS | Encounter Summary ---
:1950 Author Organization [place] Address [address] [place] [address] Care Team Providers Name Role Phone Toña Jones MD Primary Care Provider Ingrid Santana RN Unavailable Unavailable Encounter Details Date Type Department Care Team Description 11/05/2013 Results Only LABORATORY RESULTS Barbara Bradley MD [address] [place], [place] [address] Social History Tobacco Use [...] II Single Antigen (11/05/2013 7:20 AM CDT) [facility] Method Time Signature SA2 Test SA [...] Phon e Number [facility] Immunology/Histocompatabil [place], [place] [address] ity [facility] Ctr [address] Building, Room 3-580 HISTOTRAC documented in this encounter Visit Diagnoses Not on filedocumented in this encounter Care Teams Cloth Mender Relationship Specialty Start Date End Date Toña Jones MD PCP - General Nephrology 11/25/11 01/01/14 Ingrid Santana RN Registered Nurse Transplant 02/10/12 documented as of this encounter
--- OUTSIDE RECORDS SUMMARY | 2022-05-21 13:29 | XMS_ITS | Encounter Summary ---
:1950 Author Organization [place] Address [address] [place] [address] Care Team Providers Name Role Phone Toña Jones MD Primary Care Provider Ingrid Santana RN Unavailable Unavailable Encounter Details Date Type Department Care Team Description 07/03/2012 Results Only LABORATORY RESULTS Barbara Bradley MD [address] [place], [place] [address] Social History Tobacco Use [...] HLA Lukasz Class II Single Antigen (07/03/2012) [facility] Method Time Signature [...] / Volume Laterality 07/03/2012 07/05/2012 1:57 PM MOLD DUMPER Barbara Bradley MD LAB - IMMUNOLOGY ORDERABLES Performing Organization Address City/State/ZIP Code Phon e Number [facility] Immunology/Histocompatabil [place], [place] [address] ity [facility] [address] Building, Room 3-580 HISTOTRAC documented in this encounter Visit Diagnoses Not on filedocumented in this encounter Care Teams Data Processing Systems Consultant Relationship Specialty Start Date End Date Toña Jones MD PCP - General Nephrology 11/25/11 01/01/14 Ingrid Santana RN Registered Nurse Transplant 02/10/12 documented as of this encounter
--- OUTSIDE RECORDS SUMMARY | 2022-05-21 13:29 | XMS_ITS | Encounter Summary ---
:1950 Author Organization [place] Address [address] [place] [address] Care Team Providers Name Role Phone Toña Jones MD Primary Care Provider Ingrid Santana RN Unavailable Unavailable Encounter Details Date Type Department Care Team Description 07/30/2013 Results Only LABORATORY RESULTS Mingo Dangelo MD [address] [facility] [address] [place] [address] (Wo rk) Social History Tobacco [...] HLA Lukasz Class II Single Antigen (07/30/2013) [facility] gist Method Time Signature SA2 Test Single [...] / Volume Laterality 07/30/2013 07/31/2013 2:10 PM QUALITY ASSURANCE INTERN Mingo Dangelo MD LAB - IMMUNOLOGY ORDERABLES Performing Organization Address City/State/ZIP Code Phon e Number [facility] Immunology/Histocompatabil [place], [place] [address] ity [facility] [address] [facility] [address] Building, Room 3-580 HISTOTRAC documented in this encounter Visit Diagnoses Not on filedocumented in this encounter Care Teams Behavioral Therapy Coordinator Relationship Specialty Start Date End Date Toña Jones MD PCP - General Nephrology 11/25/11 01/01/14 Ingrid Santana RN Registered Nurse Transplant 02/10/12 documented as of this encounter
--- OUTSIDE RECORDS SUMMARY | 2022-05-21 13:29 | XMS_ITS | Encounter Summary ---
:1950 Author Organization [place] Address [address] [place] [address]. [place] [address] Care Team Providers Name Role Phone Toña Jones MD Primary Care Provider Ingrid Santana RN Unavailable Unavailable Momo Forbes Primary Care Provider Encounter Details Date Type Department Care Team Description 09/25/2012 Historic Results CONVERSION Provider, MD Marcela Social [...] - HIM SCAN - 09/25/2012 8:26 AM APPLICATION ARCHITECT MANAGER ARCHIVE documented in this encounter Results LAB RESULT - HIM SCAN - ARCHIVE (09/25/2012 8:26 AM APPLICATION ARCHITECT MANAGER) Specimen (Source) Anatomical Location Collection Method / Collectio n Time Received Time / Laterality Volume Narrative This result has an attachment that is no t available. Marcela Cordero MD LAB - BLOOD ORDERABLES documented in this encounter Visit Diagnoses Not on filedocumented in this encounter Care Teams Nurse Behavioral Health Care Relationship Specialty Start Date End Date Toña Jones MD PCP - General Nephrology 11/25/11 01/01/14 Momo Forbes PCP - General Family Practice 01/02/14 [facility] [address] [place] [address] Ingrid Santana, RN Registered Nurse Transplant 02/10/12 documented as of this encounter
--- OUTSIDE RECORDS SUMMARY | 2022-05-21 13:29 | XMS_ITS | Encounter Summary ---
:1950 Author Organization [place] Address [address] [place] [address]. [place] [address] Care Team Providers Name Role Phone Toña Jones MD Primary Care Provider Ingrid Santana RN Unavailable Unavailable Momo Forbes Primary Care Provider Encounter Details Date Type Department Care Team Description 11/15/2012 Historic Results CONVERSION Provider, MD Marcela Social [...] on filedocumented in this encounter Care Teams Donor Relations Manager Relationship Specialty Start Date End Date Toña Jones MD PCP - General Nephrology 11/25/11 01/01/14 Momo Forbes PCP - General Family Practice 01/02/14 [facility] [address] [place] [address] Ingrid Santana, RN Registered Nurse Transplant 02/10/12 documented as of this encounter
--- OUTSIDE RECORDS SUMMARY | 2022-05-21 13:30 | XMS_ITS | Encounter Summary ---
:1950 Author Organization [place] Address [facility] [place] [address] Care Team Providers Name Role Phone Toña Jones MD Primary Care Provider Ingrid Santana RN Unavailable Unavailable Momo Forbes Primary Care Provider Encounter Details Date Type Department Care Team Description 05/06/2010 Historic Results CONVERSION Provider, MD Marcela Social [...] t available. Marcela Cordero MD ECG ORDERABLES LAB RESULT - HIM SCAN - ARCHIVE (05/06/2010 8:25 AM CDT) Specimen (Source) Anatomical Location Collection Method / Collectio n Time Received Time / Laterality Volume Narrative This result has an attachment that is no t available. Marcela Cordero MD LAB - BLOOD ORDERABLES documented in this encounter Visit Diagnoses Not on filedocumented in this encounter Care Teams Chalker Soles Relationship Specialty Start Date End Date Toña Jones MD PCP - General Nephrology 11/25/11 01/01/14 Momo Forbes PCP - General Family Practice 01/02/14 [facility] [address] [place] [address] Ingrid Santana, RN Registered Nurse Transplant 02/10/12 documented as of this encounter
--- OUTSIDE RECORDS SUMMARY | 2022-05-21 13:30 | XMS_ITS | Encounter Summary ---
:1950 Author Organization [place] Address [facility] [place] [address] Care Team Providers Name Role Phone Toña Jones MD Primary Care Provider Reason for Visit Reason Onset Date Comments Patient Reminder 02/01/2012 Encounter Details Date Type Department Care Team Description 02/01/2012 PRE VISIT Nephrology Joseph Quintana, Patient Reminder 2nd Floor, Clinic 2A MD Tommy Guillermo[address] [facility] [place], [place] [address] [place] [address] (Wo rk) [id number] [phone] Social History Tobacco Use Types Packs/Day Years [...] on filedocumented in this encounter Care Teams Heater Furnace Relationship Specialty Start Date End Date Toña Jones MD PCP - General Nephrology 11/25/11 01/01/14 documented as of this encounter
--- OUTSIDE RECORDS SUMMARY | 2022-05-21 13:30 | XMS_ITS | Encounter Summary ---
:1950 Author Organization [place] Address [address] [place] [address]. [place] [address] Care Team Providers Name Role Phone Toña Jones MD Primary Care Provider Ingrid Santana RN Unavailable Unavailable Momo Forbes Primary Care Provider Encounter Details Date Type Department Care Team Description 01/12/2010 Historic Results CONVERSION Provider, MD Marcela Social [...] on filedocumented in this encounter Care Teams Slot Technician Relationship Specialty Start Date End Date Toña Jones MD PCP - General Nephrology 11/25/11 01/01/14 Momo Forbes PCP - General Family Practice 01/02/14 [facility] [address] [place] [address] Siers, Ingrid A, RN Registered Nurse Transplant 02/10/12 documented as of this encounter
--- OUTSIDE RECORDS SUMMARY | 2022-05-21 13:30 | XMS_ITS | Encounter Summary ---
:1950 Author Organization [place] Address [address] [place] [address] Care Team Providers Name Role Phone Toña Jones MD Primary Care Provider Encounter Details Date Type Department Care Team Description 02/08/2012 Orders Only [facility], Ty Blink, End sta ge kidney Pulmonary Function disease ( H) (Primary Laboratory Dx) 6th Floor [address] [place] [address] Social History Tobacco Use Types [...] Lab Testing (Generic) (02/08/2012 8:35 AM CDT) [facility] Method Time Signature Pulmonary COPATH Function Test Name: ? ELINOR GUTHRIE ? ID: ?[id number] Doctor: ?JESUS THOMAS ?Height: ?72.00 in ? [...] INTERPRETATION: The FVC, FEV1, FEV1/FVC ratio and TSB00-59% are within normal limits. ??The inspiratory flow [...] disease documented in this encounter Care Teams Dean For Student Affairs Relationship Specialty Start Date End Date Toña Jones MD PCP - General Nephrology 11/25/11 01/01/14 documented as of this encounter
--- OUTSIDE RECORDS SUMMARY | 2022-05-21 13:30 | XMS_ITS | Encounter Summary ---
:1950 Author Organization [place] Address [address] [place] [address]. [place] [address] Care Team Providers Name Role Phone Toña Jones MD Primary Care Provider Ingrid Santana RN Unavailable Unavailable Momo Forbes Primary Care Provider Encounter Details Date Type Department Care Team Description 05/25/2010 Historic Results CONVERSION Provider, MD Marcela Social [...] on filedocumented in this encounter Care Teams Continuous Improvement Intern Relationship Specialty Start Date End Date Toña Jones MD PCP - General Nephrology 11/25/11 01/01/14 Momo Forbes PCP - General Family Practice 01/02/14 [facility] [address] [place] [address] Siers, Ingrid A, RN Registered Nurse Transplant 02/10/12 documented as of this encounter
--- OUTSIDE RECORDS SUMMARY | 2022-05-21 13:30 | XMS_ITS | Encounter Summary ---
:1950 Author Organization [place] Address [address] [place] [address]. [place] [address] Care Team Providers Name Role Phone Toña Jones MD Primary Care Provider Ingrid Santana RN Unavailable Unavailable Momo Forbes Primary Care Provider Encounter Details Date Type Department Care Team Description 12/13/2005 Historic Results CONVERSION Provider, MD Marcela Social [...] on filedocumented in this encounter Care Teams Mac Developer Relationship Specialty Start Date End Date Toña Jones MD PCP - General Nephrology 11/25/11 01/01/14 Momo Forbes PCP - General Family Practice 01/02/14 [facility] [address] [place] [address] Siers, Ingrid A, RN Registered Nurse Transplant 02/10/12 documented as of this encounter
--- OUTSIDE RECORDS SUMMARY | 2022-05-21 13:30 | XMS_ITS | Encounter Summary ---
:1950 Author Organization [place] Address [address] [place] [address] Care Team Providers Name Role Phone Toña Jones MD Primary Care Provider Ingrid Santana RN Unavailable Unavailable Encounter Details Date Type Department Care Team Description 02/08/2012 Results Only LABORATORY RESULTS Jeff Joshi MD [address] [facility] [address] [place] [address] (Wo rk) Social History Tobacco [...] I Single Antigen (02/08/2012 7:07 AM CDT) [facility] Method Time Signature SA1 Test Single [...] e Number [facility] Immunology/Histocompatabil [place], [place] [address] ity [facility] [address], Room 3-580 HISTOTRAC documented in this encounter Visit Diagnoses Not on filedocumented in this encounter Care Teams Lab Specialist Relationship Specialty Start Date End Date Toña Jones MD PCP - General Nephrology 11/25/11 01/01/14 Ingrid Santana RN Registered Nurse Transplant 02/10/12 documented as of this encounter
--- OUTSIDE RECORDS SUMMARY | 2022-05-21 13:30 | XMS_ITS | Encounter Summary ---
:1950 Author Organization [place] Address [facility] [place] [address] Care Team Providers Name Role Phone Toña Jones MD Primary Care Provider Blayne Santana RN Unavailable Unavailable Reason for Visit Reason Comments Transplant Evaluation Encounter Details Date Type Department Care Team Description 02/08/2012 Office Visit Transplant Surgery Jesus Cardenas, DM (di abetes mellitus), type 2 (H); Clinic End stage renal disease (H) 2nd Floor, Clinic [address]A [address] [phone] Social History Tobacco Use Types Packs/Day Years [...] as of this encounter Progress Notes Jesus aCrdenas MD - 02/08/2012 11:18 AM CDT Images from the original note were not included. 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 B gxkigsd-E-aozum acid (NEPHROCAPS) 1 MG capsule Take 1 [...] Test 02/08/12 0725 INR 1.11 F2MAR -- [id number] -- Lipid Profile: Cholesterol Date Value Range [...] 09, 2012 3:21 PM Pre Abdominal Organ Vp Patient Evaluation Note: present: Dr. Jesus Cardenas Attendees: self Type of transplant: kidney Required Topic(s) Discussed: Evaluation notification document, SRTR data, Multiple wait list brochure, MANAGER ENROLLMENT, Evaluation/approval process, Selection committee process, Wait list [...] spent with patient: 15 minutes -- Nurse Vp Patient Pager [phone] BLAYNE SANTANA -- Nurse Vp Patient Pager [phone] >> Lena Sánchez RN santino Feb 08, 2012 11:21 AM Evaluation for [...] disease documented in this encounter Care Teams It Trainee Relationship Specialty Start Date End Date Toña Jones MD PCP - General Nephrology 11/25/11 01/01/14 Blayne Santana, RN Registered Nurse Transplant 02/10/12 documented as of this encounter
--- OUTSIDE RECORDS SUMMARY | 2022-05-21 13:30 | XMS_ITS | Encounter Summary ---
:1950 Author Organization [place] Address [facility] [place] [address] Care Team Providers Name Role Phone Toña Jones MD Primary Care Provider Ingrid Santana RN Unavailable Unavailable Encounter Details Date Type Department Care Team Description 12/07/2011 Orders Only Nephrology Chucho Joshi MD Dialysis patient (H) 2nd Floor, Clinic 2A [address] (Primary Dx) Tommy [address] [place] [address] [place] [address] [place], [place] [phone] (Wo rk) [id number] [phone] Social History Tobacco Use Types Packs/Day Years Used Date Never Assessed Sex Assigned at Date Recorded Not on file documented as of this encounter Plan of Treatment Not on filedocumented as of this encounter Visit Diagnoses Diagnosis Dialysis patient (H) - Primary Renal dialysis status documented in this encounter Care Teams Hospitality Aide Relationship Specialty Start Date End Date Toña Jones MD PCP - General Nephrology 11/25/11 01/01/14 Ingrid Santana, RN Registered Nurse Transplant 02/10/12 documented as of this encounter
--- OUTSIDE RECORDS SUMMARY | 2022-05-21 13:30 | XMS_ITS | Encounter Summary ---
:1950 Author Organization [place] Address [address] [place] [address]. [place] [address] Care Team Providers Name Role Phone Toña Jones MD Primary Care Provider Ingrid Santana RN Unavailable Unavailable Momo Forbes Primary Care Provider Encounter Details Date Type Department Care Team Description 04/12/2007 Historic Results CONVERSION Provider, MD Marcela Social [...] on filedocumented in this encounter Care Teams Lime Boiler Relationship Specialty Start Date End Date Toña Jones MD PCP - General Nephrology 11/25/11 01/01/14 Momo Forbes PCP - General Family Practice 01/02/14 [facility] [address] [place] [address] Siers, Ingrid A, RN Registered Nurse Transplant 02/10/12 documented as of this encounter
--- OUTSIDE RECORDS SUMMARY | 2022-05-21 13:30 | XMS_ITS | Encounter Summary ---
:1950 Author Organization [place] Address [address] [place] [address] Care Team Providers Name Role Phone Toña Jones MD Primary Care Provider Encounter Details Date Type Department Care Team Description 02/08/2012 Hospital Encounter [facility] Jesus Cardenas MD Patient Learning Bobby Angela Leon, BOGDAN [address] [facility] [address] [place], [place] [address] [address] [place] [address] Social History Tobacco Use Types Packs/Day Years [...] 0 02/10/2012 10 MG tablet daily. B youpppt-M-rcsdb acid Take 1 capsule by mouth 0 [...] on filedocumented in this encounter Care Teams Compensation Intern Relationship Specialty Start Date End Date Toña Jones MD PCP - General Nephrology 11/25/11 01/01/14 documented as of this encounter
--- OUTSIDE RECORDS SUMMARY | 2022-05-21 13:30 | XMS_ITS | Encounter Summary ---
:1950 Author Organization [place] Address [facility] [place] [address] Care Team Providers Name Role Phone Toña Jones MD Primary Care Provider Inrgid Santana RN Unavailable Unavailable Momo Forbes Primary Care Provider Encounter Details Date Type Department Care Team Description 08/30/2011 Historic Results CONVERSION Provider, MD Marcela Social History Tobacco Use Types Packs/Day Years Used Date Never Assessed Sex Assigned at Date Recorded Not on file documented as of this encounter Plan of Treatment Not on filedocumented as of this encounter Procedures Procedure Name Priority Date/Time Associated Diagnosis Comme nts EKG CARDIAC - HIM SCAN 08/30/2011 8:28 AM CHEMICAL PREPARER - ARCHIVE ECHO CARDIAC - HIM SCAN 08/30/2011 8:27 AM CHEMICAL PREPARER - ARCHIVE documented in this encounter Results EKG CARDIAC - HIM SCAN - ARCHIVE (08/30/2011 8:28 AM CHEMICAL PREPARER) Specimen (Source) Anatomical Location Collection Method / Collectio n Time Received Time / Laterality Volume Narrative This result has an attachment that is no t available. Marcela Provider ECG ORDERABLES ECHO CARDIAC - HIM SCAN - ARCHIVE (08/30/2011 8:27 AM CHEMICAL PREPARER) Specimen (Source) Anatomical Location Collection Method / Collectio n Time Received Time / Laterality Volume Narrative This result has an attachment that is no t available. Marcela Provider CV ECHO ORDERABLES documented in this encounter Visit Diagnoses Not on filedocumented in this encounter Care Teams Shredding Machine Knife Changer Relationship Specialty Start Date End Date Toña Jones MD PCP - General Nephrology 11/25/11 01/01/14 Momo Forbes PCP - General Family Practice 01/02/14 [place] [id number] Ingrid Santana, RN Registered Nurse Transplant 02/10/12 documented as of this encounter
--- OUTSIDE RECORDS SUMMARY | 2022-05-21 13:30 | XMS_ITS | Encounter Summary ---
:1950 Author Organization [place] Address [address] [place] [address]. [place] [address] Care Team Providers Name Role Phone Toña Jones MD Primary Care Provider Ingrid Santana RN Unavailable Unavailable Momo Forbes Primary Care Provider Encounter Details Date Type Department Care Team Description 01/02/2008 Historic Results CONVERSION Provider, MD Marcela Social [...] on filedocumented in this encounter Care Teams C.O.D. Biller Relationship Specialty Start Date End Date Toña Jones MD PCP - General Nephrology 11/25/11 01/01/14 Momo Forbes PCP - General Family Practice 01/02/14 [facility] [address] [place] [address] Ingrid Santana, RN Registered Nurse Transplant 02/10/12 documented as of this encounter
--- OUTSIDE RECORDS SUMMARY | 2022-05-21 13:30 | XMS_ITS | Encounter Summary ---
:1950 Author Organization [place] Address [address] [place] [address]. [place] [address] Care Team Providers Name Role Phone Toña Jones MD Primary Care Provider Reason for Visit Reason Comments Transplant Evaluation Kidney transplant evaluation - Diabetes, End Stage Renal Disease Encounter Details Date Type Department Care Team Description 02/08/2012 Office Visit The Transplant Edda Cardenas, Ty Blink, DM (diabetes 2nd Floor, Clinic 2A MD mellitus), type 2 (H) Tommy Wilburn (Primar y Dx) [address] [phone] Social History Tobacco Use Types Packs/Day Years [...] (willing/able to accept information): Yes Any cultural factors/pentecostalism beliefs that may influence understanding or compliance? [...] uncontrolled documented in this encounter Care Teams Engineering Assistant Relationship Specialty Start Date End Date Toña Jones MD PCP - General Nephrology 11/25/11 01/01/14 documented as of this encounter
--- OUTSIDE RECORDS SUMMARY | 2022-05-21 13:30 | XMS_ITS | Encounter Summary ---
:1950 Author Organization [place] Address [address] [place] [address]. [place] [address] Care Team Providers Name Role Phone Toña Jones MD Primary Care Provider Ingrid Santana RN Unavailable Unavailable Momo Forbes Primary Care Provider Encounter Details Date Type Department Care Team Description 05/12/2011 Historic Results CONVERSION Provider, MD Marcela Social [...] filedocumented in this encounter Care Teams Accounting Lecturer Relationship Specialty Start Date End Date Toña Jones MD PCP - General Nephrology 11/25/11 01/01/14 Momo Forbes PCP - General Family Practice 01/02/14 [facility] [address] [place] [address] Siers, Ingrid A, RN Registered Nurse Transplant 02/10/12 documented as of this encounter
--- OUTSIDE RECORDS SUMMARY | 2022-05-21 13:30 | XMS_ITS | Encounter Summary ---
:1950 Author Organization [place] Address [address] [place] [address] Care Team Providers Name Role Phone Toña Jones MD Primary Care Provider Ingrid Santana RN Unavailable Unavailable Encounter Details Date Type Department Care Team Description 02/08/2012 Results Only LABORATORY RESULTS Jeff Joshi MD [facility] [facility] [address] [place] [address] (Wo rk) Social History [...] Phon e Number [facility] Immunology/Histocompatabil [place], [place] [address] ity [facility] [address] [facility] [address] Building, Room 3-580 HISTOTRAC documented in this encounter Visit Diagnoses Not on filedocumented in this encounter Care Teams Flight Communications Officer Relationship Specialty Start Date End Date Toña Jones MD PCP - General Nephrology 11/25/11 01/01/14 Ingrid Santana RN Registered Nurse Transplant 02/10/12 documented as of this encounter
--- OUTSIDE RECORDS SUMMARY | 2022-05-21 13:30 | XMS_ITS | Encounter Summary ---
:1950 Author Organization [place] Address [facility] [place] [address] Care Team Providers Name Role Phone Toña Jones MD Primary Care Provider Reason for Visit Reason Onset Date Comments Pre Visit Planning - Done 02/07/2012 Consult prior to kidney transplant, needs EKG please. Encounter Details Date Type Department Care Team Description 02/07/2012 PRE VISIT [facility] Barbara Bradley Pre Visit Planning - Physicians Heart MD Monae Done (Consult prior to [facility] [address] kidney transplant, [place] [address] needs EKG please.) 4th Floor, Clinic [address]B [address] [phone] Social History Tobacco Use Types [...] on filedocumented in this encounter Care Teams Performance Test Engineer Relationship Specialty Start Date End Date Toña Jones MD PCP - General Nephrology 11/25/11 01/01/14 documented as of this encounter
--- OUTSIDE RECORDS SUMMARY | 2022-05-21 13:30 | XMS_ITS | Encounter Summary ---
:1950 Author Organization [place] Address [address] [place] [address]. [place] [address] Care Team Providers Name Role Phone Toña Jones MD Primary Care Provider Ingrid Santana RN Unavailable Unavailable Momo Forbes Primary Care Provider Encounter Details Date Type Department Care Team Description 01/14/2006 Historic Results CONVERSION Provider, MD Marcela Social [...] filedocumented in this encounter Care Teams Physician Credentialing Specialist Relationship Specialty Start Date End Date Toña Jones MD PCP - General Nephrology 11/25/11 01/01/14 Momo Forbes PCP - General Family Practice 01/02/14 [facility] [address] [place] [address] Siers, Ingrid A, RN Registered Nurse Transplant 02/10/12 documented as of this encounter
--- OUTSIDE RECORDS SUMMARY | 2022-05-21 13:30 | XMS_ITS | Encounter Summary ---
:1950 Author Organization [place] Address [address] [facility] [place] [address] Care Team Providers Name Role Phone Unavailable Primary Care Provider Unavailable Encounter Details Date Type Department Care Team Description 07/30/2009 Results [facility] Results [address] [id number] Social History Tobacco Use Types Packs/Day Years Used Date Never Assessed Sex Assigned at Date Recorded Not on file documented as of this encounter Plan of Treatment Not on filedocumented as of this encounter Procedures Procedure Name Priority Date/Time Associated Diagnosis Comme [facility] RT DUPLEX Routine 07/30/2009 12:32 PM Results for this EXTREM VENOUS,UNI METHODS TIME ANALYST procedure are in OR LTD the results section. documented in this encounter Results RT DUPLEX EXTREM VENOUS,UNI OR LTD (07/30/2009 12:32 PM METHODS TIME ANALYST) Specimen (Source) Anatomical Collection Method Collection Time Re ceived Time Location / / Volume Laterality 07/30/2009 12:32 PM METHODS TIME ANALYST Impressions RADIOLOGY RESULTS - 07/30/2009 4:21 PM [...]
--- OUTSIDE RECORDS SUMMARY | 2022-05-21 13:30 | XMS_ITS | Encounter Summary ---
:1950 Author Organization [place] Address [facility] [place] [address] Care Team Providers Name Role Phone Toña Jones MD Primary Care Provider Ingrid Santana RN Unavailable Unavailable Momo Forbes Primary Care Provider Encounter Details Date Type Department Care Team Description 05/04/2011 Historic Results CONVERSION Provider, MD Marcela Social [...] in this encounter Care Teams Director Of Vocational Training Relationship Specialty Start Date End Date Toña Jones MD PCP - General Nephrology 11/25/11 01/01/14 Momo Forbes PCP - General Family Practice 01/02/14 [facility] [address] [place] [address] Ingrid Santana, RN Registered Nurse Transplant 02/10/12 documented as of this encounter
--- OUTSIDE RECORDS SUMMARY | 2022-05-21 13:30 | XMS_ITS | Encounter Summary ---
:1950 Author Organization [place] Address [address] [place] [address]. [place] [address] Care Team Providers Name Role Phone Toña Jones MD Primary Care Provider Ingrid Santana RN Unavailable Unavailable Momo Forbes Primary Care Provider Encounter Details Date Type Department Care Team Description 06/05/2008 Historic Results CONVERSION Provider, MD Marcela Social [...] on filedocumented in this encounter Care Teams Quality Assurance Group Leader Relationship Specialty Start Date End Date Toña Jones MD PCP - General Nephrology 11/25/11 01/01/14 Momo Forbes PCP - General Family Practice 01/02/14 [facility] [address] [place] [address] Siers, Ingrid A, RN Registered Nurse Transplant 02/10/12 documented as of this encounter
--- OUTSIDE RECORDS SUMMARY | 2022-05-21 13:30 | XMS_ITS | Encounter Summary ---
:1950 Author Organization [place] Address [facility] [place] [address] Care Team Providers Name Role Phone Toña Jones MD Primary Care Provider Ingrid Santana RN Unavailable Unavailable Momo Forbes Primary Care Provider Encounter Details Date Type Department Care Team Description 06/02/2010 Historic Results CONVERSION Provider, MD Marcela Social [...] on filedocumented in this encounter Care Teams Lumite Injector Relationship Specialty Start Date End Date Toña Jones MD PCP - General Nephrology 11/25/11 01/01/14 Momo Forbes PCP - General Family Practice 01/02/14 [facility] [address] [place] [address] Ingrid Santana, RN Registered Nurse Transplant 02/10/12 documented as of this encounter
--- OUTSIDE RECORDS SUMMARY | 2022-05-21 13:30 | XMS_ITS | Encounter Summary ---
:1950 Author Organization [place] Address Count includes the [facility] [place] [address] Care Team Providers Name Role Phone Toña Jones MD Primary Care Provider Reason for Referral - Closed Specialty Diagnoses / Procedures Referred By Contact Refer red To Contact Diagnoses Diabetes mellitus, type 2 (H) End stage renal disease (H) [facility] Renal [facility] Floor, [place] [phone] Referral ID Status Reason Start Date Expiration Date Visits Requ ested Visits Authorized [id number] Closed 12/02/2011 05/30/2012 1 1 - Closed Specialty Diagnoses / Procedures Referred By Contact Refer red To Contact Diagnoses Diabetes mellitus, type 2 (H) End stage renal disease (H) [facility] Renal [facility] Floor, [address] [phone] Referral ID Status Reason Start Date Expiration Date Visits Requ ested Visits Authorized [id number] Closed 12/02/2011 05/30/2012 1 1 - Closed Specialty Diagnoses / Procedures Referred By Contact Refer red To Contact Diagnoses Diabetes mellitus, type 2 (H) End stage renal disease (H) [facility] Renal 2nd Floor, [facility] 2A [place] [phone] Referral ID Status Reason Start Date Expiration Date Visits Requ ested Visits Authorized [id number] Closed 12/02/2011 05/30/2012 1 1 - Closed Specialty Diagnoses / Procedures Referred By Contact Refer red To Contact Diagnoses Diabetes mellitus, type 2 (H) End stage renal disease (H) [facility] Renal 2nd Floor, [facility] [address] [place] [phone] Referral ID Status Reason Start Date Expiration Date Visits Requ ested Visits Authorized [id number] Closed 12/02/2011 05/30/2012 1 1 - Closed Specialty Diagnoses / Procedures Referred By Contact Refer red To Contact Diagnoses Diabetes mellitus, type 2 (H) End stage renal disease (H) [facility] Renal [facility] Floor, [address] [phone] Referral ID Status Reason Start Date Expiration Date Visits Requ ested Visits Authorized [id number] Closed 12/02/2011 05/30/2012 1 1 - Closed Specialty Diagnoses / Procedures Referred By Contact Refer red To Contact Diagnoses Diabetes mellitus, type 2 (H) End stage renal disease (H) [facility] Renal [address] [place] [address], [address] [phone] Referral ID Status Reason Start Date Expiration Date Visits Requ ested Visits Authorized [id number] Closed 12/02/2011 05/30/2012 1 1 - Closed Specialty Diagnoses / Procedures Referred By Contact Refer red To Contact Diagnoses Diabetes mellitus, type 2 (H) End stage renal disease (H) [facility] Renal 2nd Floor, [facility] [address] [phone] Referral ID Status Reason Start Date Expiration Date Visits Requ ested Visits Authorized [id number] Closed 12/02/2011 05/30/2012 1 1 - Closed Specialty Diagnoses / Procedures Referred By Contact Refer red To Contact Diagnoses Diabetes mellitus, type 2 (H) End stage renal disease (H) [facility] Renal 2nd Floor, [facility] [address] [address] [phone] Referral ID Status Reason Start Date Expiration Date Visits Requ ested Visits Authorized [id number] Closed 12/02/2011 05/30/2012 1 1 - Closed Specialty Diagnoses / Procedures Referred By Contact Refer red To Contact Diagnoses Diabetes mellitus, type 2 (H) End stage renal disease (H) [facility] Renal 2nd Floor, [facility] [address] [address] [phone] Referral ID Status Reason Start Date Expiration Date Visits Requ ested Visits Authorized [id number] Closed 12/02/2011 05/30/2012 1 1 Encounter Details Date Type Department Care Team Description 12/02/2011 Orders Only Nephrology Ingrid Santana, Diabetes mellitus, type 2 (H ); 2nd Floor, Clinic [facility] RN End stage renal disease (H) [address] [phone] Social History Tobacco Use Types [...] 2 (H) End stage renal disease (H) CLINIC BUSINESS MANAGER Referral Routine Diabetes mellitus, Ordered: 12/02/2011 REFERRAL type 2 (H) End stage renal disease (H) NEPHROLOGY ADULT REFERRAL Referral Routine Diabetes mellit us, Ordered: 12/02/2011 type 2 (H) End stage renal disease (H) GENERAL SURG ADULT Referral Routine Diabetes mellitus, Ord ered: 12/02/2011 REFERRAL type 2 (H) End stage renal disease (H) PROJECT TECHNICIAN REFERRAL Referral Routine Diabetes mellitu s, Ordered: [...] disease documented in this encounter Care Teams Technical Solution Architect Relationship Specialty Start Date End Date Toña Jones MD PCP - General Nephrology 11/25/11 01/01/14 documented as of this encounter
--- OUTSIDE RECORDS SUMMARY | 2022-05-21 13:30 | XMS_ITS | Encounter Summary ---
:1950 Author Organization [place] Address [facility] [place] [address] Care Team Providers Name Role Phone Toña Jones MD Primary Care Provider Ingrid Santana RN Unavailable Unavailable Momo Forbes Primary Care Provider Encounter Details Date Type Department Care Team Description 05/20/2011 Historic Results CONVERSION Provider, MD Marcela Social [...] Marcela Provider PFT ORDERABLES SLEEP STUDY - [facility] SCAN - ARCHIVE (05/20/2011 8:28 AM CDT) Specimen (Source) Anatomical Location Collection Method / Collectio n Time Received Time / Laterality Volume Narrative This result has an attachment that is no t available. Marcela Cordero MD PFT ORDERABLES documented in this encounter Visit Diagnoses Not on filedocumented in this encounter Care Teams District Recruiter Relationship Specialty Start Date End Date Toña Jones MD PCP - General Nephrology 11/25/11 01/01/14 Momo Forbes PCP - General Family Practice 01/02/14 [facility] [address] [place] [address] Ingrid Santana, RN Registered Nurse Transplant 02/10/12 documented as of this encounter
--- OUTSIDE RECORDS SUMMARY | 2022-05-21 13:30 | XMS_ITS | Encounter Summary ---
:1950 Author Organization [place] Address [address] [facility] [place] [address] Care Team Providers Name Role Phone Toña Jones MD Primary Care Provider Ingrid Santana RN Unavailable Unavailable Momo Forbes Primary Care Provider Encounter Details Date Type Department Care Team Description 11/02/2005 Historic Results CONVERSION Provider, MD Marcela Social History Tobacco Use Types Packs/Day Years Used Date Never Assessed Sex Assigned at Date Recorded Not on file documented as of this encounter Plan of Treatment Not on filedocumented as of this encounter Procedures Procedure Name Priority Date/Time Associated Diagnosis Comme nts LAB RESULT - HIM SCAN - 11/02/2005 8:27 AM [employer]OURER [facility]IVE LAB RESULT - HIM SCAN - 11/02/2005 8:25 AM [employer]ARTHMOVING LABOURER ARCHIVE documented in this encounter Results LAB RESULT - HIM SCAN - ARCHIVE (11/02/2005 8:27 AM EARTHMOVING LABOURER) Specimen (Source) Anatomical Location Collection Method / Collectio n Time Received Time / Laterality Volume Narrative This result has an attachment that is no t available. Marcela Provider LAB - BLOOD ORDERABLES LAB RESULT - HIM SCAN - ARCHIVE (11/02/2005 8:25 AM EARTHMOVING LABOURER) Specimen (Source) Anatomical Location Collection Method / Collectio n Time Received Time / Laterality Volume Narrative This result has an attachment that is no t available. Marcela Provider LAB - BLOOD ORDERABLES documented in this encounter Visit Diagnoses Not on filedocumented in this encounter Care Teams Preparation Operator Relationship Specialty Start Date End Date Toña Jones MD PCP - General Nephrology 11/25/11 01/01/14 Momo Forbes PCP - General Family Practice 01/02/14 [place] [address] Ingrid Santana, RN Registered Nurse Transplant 02/10/12 documented as of this encounter
--- OUTSIDE RECORDS SUMMARY | 2022-05-21 13:30 | XMS_ITS | Encounter Summary ---
:1950 Author Organization [place] Address [address] [place] [address]. [place] [address] Care Team Providers Name Role Phone Toña Jones MD Primary Care Provider Ingrid Santana RN Unavailable Unavailable Momo Forbes Primary Care Provider Encounter Details Date Type Department Care Team Description 01/20/2012 Historic Results CONVERSION Provider, MD Marcela Social [...] on filedocumented in this encounter Care Teams Telemarketing Supervisor Relationship Specialty Start Date End Date Toña Jones MD PCP - General Nephrology 11/25/11 01/01/14 Momo Forbes PCP - General Family Practice 01/02/14 [facility] [address] [place] [address] Siers, Ingrid A, RN Registered Nurse Transplant 02/10/12 documented as of this encounter
--- OUTSIDE RECORDS SUMMARY | 2022-05-21 13:30 | XMS_ITS | Encounter Summary ---
:1950 Author Organization [place] Address [facility] 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 [...] Phon e Number [facility] [address] [place], [place] [id number] [place] [address] [facility] Antibody titer red cell (02/08/2012 7:26 AM CDT) [facility] Method Time Signature Antibody Titer Anti B [facility] titer IgM: [place] 4 Ig CAMPUS LABS Specimen Anatomical Collection Method Collection Time Receive d Time (Source) Location / / Volume Laterality Blood specimen 02/08/2012 7:26 AM 012 7:31 (specimen) CDT AM CDT Darian Joshi MD LAB - BLOOD BANK TEST ORDER Performing Organization Address City/State/ZIP Code Phon e Number [facility] [address] LABS Prostate spec antigen screen (02/08/2012 7:25 AM CDT) P athologist Signature PSA 0.44 0 - 4 ug/L [facility] Comment: PSA results are about 7% [...] Phon e Number [facility] [address] LABS Hemoglobin A1c (02/08/2012 7:25 AM CDT) P athologist Signature Hemoglobin A1C 5.3 4.3 - 6.0 [facility] % [place] LABS Specimen Anatomical Collection Method Collection Time Receive d Time (Source) Location / / Volume Laterality Blood specimen 02/08/2012 7:25 AM 012 7:30 (specimen) CDT AM CDT Darian Joshi MD LAB - BLOOD ORDERABLES Performing Organization Address City/State/ZIP Code Phon e Number [facility] [address] [place], [place] [phone] [place] [address] LABS C-peptide (02/08/2012 7:25 AM CDT) athologist Signature C Peptide 5.3 0.9 - 6.9 [facility] ng/mL [place] LABS Specimen Anatomical Collection Method Collection Time Receive d Time (Source) Location / / Volume Laterality Blood specimen 02/08/2012 7:25 AM 012 7:30 (specimen) CDT AM CDT Darian Joshi MD LAB - BLOOD ORDERABLES Performing Organization Address City/State/ZIP Code Phon e Number [address] LABS Cardiolipin antibody IgG and IgM (02/08/2012 7:25 AM CDT) [facility] Method Time Signature Cardiolipin IgG <15.0 0 - 15.0 [facility] Shaye Interpretation: ??Negative [facility] LABS Cardiolipin IgM <12.5 0 - 12.5 [facility] Shaye Interpretation: ??Negative [facility] LABS Specimen Anatomical Collection Method Collection Time Receive d Time (Source) Location / / Volume Laterality Blood specimen 02/08/2012 7:25 AM 012 7:30 (specimen) CDT AM CDT Darian Joshi MD LAB - BLOOD ORDERABLES Performing Organization Address City/State/ZIP Code Phon e Number [phone] [place] [address] LABS (ABNORMAL) Comprehensive metabolic panel (02/08/2012 7:25 AM CDT) [facility] Method Time Signature Sodium 143 133 - 144 [facility] mmol/L [facility] Potassium 4.4 3.4 - 5.3 [facility] mmol/L [facility] Chloride 106 94 - 109 [facility] mmol/L [facility] Carbon Dioxide 24 20 - 32 [facility] mmol/L [facility] Anion Gap 13 6 - 17 [facility] mmol/L [facility] Glucose 126 (H) 60 - 99 [facility] mg/dL [facility] Urea Nitrogen 32 (H) 7 - 30 [facility] mg/dL [facility] Creatinine 5.46 (H) 0.66 - [facility] 1.25 [place] mg/dL CAMPUS LABS GFR Estimate 11 (L) >60 [facility] mL/min/1. [address] LABS GFR Estimate If 13 (L) >60 [facility] Black mL/min/1. [address] LABS Calcium 8.5 8.5 - [facility] 10.4 [facility] mg/dL [place] [facility] Bilirubin Total 0.8 0.2 - 1.3 [facility] mg/dL [facility] Albumin 3.8 3.3 - 4.9 [facility] g/dL [facility] Protein Total 6.8 6.8 - 8.8 [facility] g/dL [facility] Alkaline 92 40 - 150 [facility] Phosphatase U/L [facility]S ALT 13 0 - 70 [facility] U/L [facility] AST 18 0 - 45 [facility] U/L [facility] Specimen Anatomical Collection Method Collection Time Receive d Time (Source) Location / / Volume Laterality Blood specimen 02/08/2012 7:25 AM 012 7:30 (specimen) CDT AM CDT Darian Joshi MD LAB - BLOOD ORDERABLES Performing Organization Address City/[facility]/ZIP Code Phon e Number [facility] [address] LABS Lipid Profile (02/08/2012 7:25 AM CDT) P athologist Signature Cholesterol 134 0 - 200 [facility] mg/dL [place] [facility] Comment: LDL Cholesterol is the primary guide to therapy. The NCEP recommends further evaluation of: patients with cholesterol greater than 200 mg/dL if additional risk facto rs are present, cholesterol greater than 240 mg/dL, triglycerides greater than 1 50 mg/dL, or HDL less than 40 mg/dL. Triglycerides 74 0 - 150 mg/dL [facility] LABS HDL Cholesterol 42 40 - 110 mg/dL [facility] LABS LDL Cholesterol Calculated 77 0 - 129 mg/dL [facility] Comment: LDL Cholesterol is the primary guide to therapy: LDL-cholesterol goal in high risk patients is <100 mg/dL and in very high risk patients is <70 mg/dL. VLDL-Cholesterol 15 0 - 30 mg/dL [facility] LABS Cholesterol/HDL Ratio 3.2 0.0 - 5.0 [facility] Specimen Anatomical Collection Method Collection Time Receive d Time (Source) Location / / Volume Laterality Blood specimen 02/08/2012 7:25 AM 012 7:30 (specimen) CDT AM CDT Darian Joshi MD LAB - BLOOD ORDERABLES Performing Organization Address City/State/ZIP Code Phon e Number [facility] [address] [place] [address] [facility] LABS ABO/Rh type and screen (02/08/2012 7:25 AM CDT) Patholo gist Method Time Signature ABO A [facility] RH(D) Pos [facility] Antibody Neg [facility] Screen [facility] Specimen 02/11/2012 [facility] Expires [facility] Specimen Anatomical Collection Method Collection Time Receive d Time (Source) Location / / Volume Laterality Blood specimen 02/08/2012 7:25 AM 012 7:30 (specimen) CDT AM CDT Darian Joshi MD LAB - BLOOD BANK TEST ORDER Performing Organization Address City/[facility]/ZIP Code Phon e Number [facility] [address] LABS Varicella zoster antibody IgG (02/08/2012 7:25 AM CDT) Patholo gist Method Time Signature Varicella 1023.00 [facility] Zoster IgG [place] Immune Status CAMPUS LABS Ratio Vari Zoster Positive, [facility] IgG Interp suggests [place] prev. CAMPUS LABS exposure and probable immunity Specimen Anatomical Collection Method Collection Time Receive d Time (Source) Location / / Volume Laterality Blood specimen 02/08/2012 7:25 AM 012 7:30 (specimen) CDT AM CDT Darian Joshi MD LAB - BLOOD ORDERABLES Performing Organization Address City/[facility]/ZIP Code Phon e Number [facility] [address] LABS Anti treponema EIA (02/08/2012 7:25 AM CDT) Analysis Performed At Patho logist Time Signature Treponema Negative NEG [facility] Antibody [place] [facility] Specimen Anatomical Collection Method Collection Time Receive d Time (Source) Location / / Volume Laterality Blood specimen 02/08/2012 7:25 AM 012 7:30 (specimen) CDT AM CDT Darian Joshi MD LAB - BLOOD ORDERABLES Performing Organization Address City/[facility]/ZIP Code Phon e Number [facility] [address] [place], [place] [phone] [place] [address] LABS HIV 1 and 2 Antibody (02/08/2012 7:25 AM CDT) Analysis Performed At Patho logist Time Signature HIV 1&2 Negative NEG [facility] Antibody [facility] Specimen Anatomical Collection Method Collection Time Receive d Time (Source) Location / / Volume Laterality Blood specimen 02/08/2012 7:25 AM 012 7:30 (specimen) CDT AM CDT Darian Joshi MD LAB - BLOOD ORDERABLES Performing Organization Address City/State/ZIP Code Phon e Number [facility] [address] [place], [place] [phone] [place] [address] LABS Hepatitis C antibody (02/08/2012 7:25 AM CDT) Analysis Performed At Patho logist Time Signature Hepatitis C Negative NEG [facility] Antibody [facility] Specimen Anatomical Collection Method Collection Time Receive d Time (Source) Location / / Volume Laterality Blood specimen 02/08/2012 7:25 AM 012 7:30 (specimen) CDT AM CDT Darian Joshi MD LAB - BLOOD ORDERABLES Performing Organization Address City/State/ZIP Code Phon e Number [facility] [address] [place], [place] [phone] [place] [address] LABS Hepatitis B surface antigen (02/08/2012 7:25 AM CDT) Analysis [facility] Signature Hep B Surface Negative NEG [facility] Agn [facility] Specimen Anatomical Collection Method Collection Time Receive d Time (Source) Location / / Volume Laterality Blood specimen 02/08/2012 7:25 AM 012 7:30 (specimen) CDT AM CDT Darian Joshi MD LAB - BLOOD ORDERABLES Performing Organization Address City/[facility]/ZIP Code Phon e Number [facility] [address] LABS Hepatitis B surface antibody (02/08/2012 7:25 AM CDT) P athologist Signature Hep B Surface 135.0 [facility] LABS Comment: Positive, Patient is considered [...] Phon e Number [facility] [address] [place], [place] [phone] [place] [address] LABS Hepatitis B core antibody (02/08/2012 7:25 AM CDT) Analysis Performed At Patho logist Time Signature Hepatitis B Negative NEG [facility] Specimen Anatomical Collection Method Collection Time Receive d Time (Source) Location / / Volume Laterality Blood specimen 02/08/2012 7:25 AM 012 7:30 (specimen) CDT AM CDT Darian Joshi MD LAB - BLOOD ORDERABLES Performing Organization Address City/[facility]/ZIP Code Phon e Number [facility] [address] LABS EBV VCA IgG Antibody (02/08/2012 7:25 AM CDT) P athologist Signature EBV VCA IgG 188.00 U/mL [facility] LABS Comment: Positive, suggests immunologic exposure. Specimen Anatomical Collection Method Collection Time Receive d Time (Source) Location / / Volume Laterality Blood specimen 02/08/2012 7:25 AM 012 7:30 (specimen) CDT AM CDT Darian Joshi MD LAB - BLOOD ORDERABLES Performing Organization Address City/[facility]/ZIP Code Phon e Number [facility] [address] LABS CMV IGG ANTIBODY (02/08/2012 7:25 AM CDT) P athologist Signature CMV IgG 3.30 U/mL [facility] LABS Comment: Positive for anti-CMV IgG Specimen Anatomical Collection Method Collection Time Receive d Time (Source) Location / / Volume Laterality Blood specimen 02/08/2012 7:25 AM 012 7:30 (specimen) CDT AM CDT Darian Joshi MD LAB - BLOOD ORDERABLES Performing Organization Address City/[facility]/ZIP Code Phon e Number [facility] [address] LABS Immunology recipient: SOT HLA Workup (ABC,DR,DQ,PRA,Crossmatch) (02/08/2012 7:25 AM CDT) Patholo gist Method Time Signature Immunology SOT HLA WORKUP [facility] Test Name [facility] Immunology Specimen [facility] Result received - [place] [facility]US LABS report to follow upon completion. Specimen Anatomical Collection Method Collection Time Receive d Time (Source) Location / / Volume Laterality Blood specimen 02/08/2012 7:25 AM 012 7:30 (specimen) CDT AM CDT Darian Joshi MD LAB - IMMUNOLOGY ORDERABLES Performing Organization Address City/State/ZIP Code Phon e Number [facility] [address] [place] [address] [facility] [place] [facility] (ABNORMAL) CBC with platelets differential (02/08/2012 7:25 AM CDT) [facility] gist Method Time Signature WBC 6.3 4.0 - [facility] 11.0 [facility] 10e9/L CAMPUS LABS RBC Count 3.97 (L) 4.4 - 5.9 [facility] 10e12/L [facility] Hemoglobin 12.0 (L) 13.3 - [facility] 17.7 g/dL [facility] Hematocrit 36.3 (L) 40.0 - [facility] 53.0 % [facility] MCV 91 78 - 100 [facility] fl [facility] [place] [facility] MCH 30.2 26.5 - [facility] 33.0 pg [place] [facility] MCHC 33.1 31.5 - [facility] 36.5 g/dL [facility] RDW 15.3 (H) 10.0 - [facility] 15.0 % [facility] LABS Platelet Count 144 (L) 150 - 450 [facility] 10e9/L [facility] Diff Method Automated [facility] Method [facility] % Neutrophils 57.7 40 - 75 % [facility] % Lymphocytes 27.7 20 - 48 % [facility] % Monocytes 8.2 0 - 12 % [facility] % Eosinophils 6.1 (H) 0 - 6 % [facility] % Basophils 0.3 0 - 2 % [facility] % Immature 0.0 0 - 0.4 % [facility] Granulocytes [facility] Absolute 3.6 1.6 - 8.3 [facility] Neutrophil 10e9/L [facility] Absolute 1.7 0.8 - 5.3 [facility] Lymphocytes 10e9/L [facility] Absolute 0.5 0.0 - 1.3 [facility] Monocytes 10e9/L [facility] Absolute 0.4 0.0 - 0.7 [facility] Eosinophils 10e9/L [facility] Absolute 0.0 0.0 - 0.2 [facility] Basophils 10e9/L [facility] Abs Immature 0.0 0 - 0.03 [facility] Granulocytes 10e9/L [facility] Specimen Anatomical Collection Method Collection Time Receive d Time (Source) Location / / Volume Laterality Blood specimen 02/08/2012 7:25 AM 012 7:30 (specimen) CDT AM CDT Darian Joshi MD LAB - BLOOD ORDERABLES Performing Organization Address [facility]/ZIP Code Phon e Number [facility] [address] LABS Lupus panel (02/08/2012 7:25 AM CDT) Component Value Ref Test Analysis Performed At Patholo gist Range Method Time Signature Lupus Result Negative NEG [facility] (Note) [place] COMMENTS: [place] [facility] The INR is normal. APTT is normal. ??1:2 Mix is not indicated. DRVVT Screen is normal. Thrombin time is normal. NEGATIVE TEST; A LUPUS ANTICOAGULANT WAS NOT DETECTED IN THI S SPECIMEN WITHIN THE LIMITS OF THE TESTING REPERTOIRE. If the clinical picture is strongly suggestive of an antipho spholipid syndrome, recommend anticardiolipin and [id number] (IgG and IgM) antibody tests. Dee Duenas M.D. ??[phone] 02-09-2012. APTT'S: ?? Seconds Reagent = Stago [...] Organization Address City/[facility]/ZIP Code Phon e Number [facility] [address] [place], [place] [phone] [place] [address] LABS Thrombin time (02/08/2012 7:25 AM CDT) P athologist Signature Thrombin Time 16.7 13.0 - [facility] 19.0 sec CAMPUS LABS Specimen Anatomical Collection Method Collection Time Receive d Time (Source) Location / / Volume Laterality Blood specimen 02/08/2012 7:25 AM 012 7:30 (specimen) CDT AM CDT Darian Joshi MD LAB - BLOOD ORDERABLES Performing Organization Address City/[facility]/ZIP Code Phon e Number [facility] [address] LABS Partial thromboplastin time (02/08/2012 7:25 AM CDT) P athologist Signature PTT 29 22 - 37 sec [facility] Specimen Anatomical Collection Method Collection Time Receive d Time (Source) Location / / Volume Laterality Blood specimen 02/08/2012 7:25 AM 012 7:30 (specimen) CDT AM CDT Darian Joshi MD LAB - BLOOD ORDERABLES Performing Organization Address City/[facility]/ZIP Code Phon e Number [facility] [address] LABS INR (02/08/2012 7:25 AM CDT) P athologist Signature INR 1.11 0.86 - 1.14 [facility] Specimen Anatomical Collection Method Collection Time Receive d Time (Source) Location / / Volume Laterality Blood specimen 02/08/2012 7:25 AM 012 7:30 (specimen) CDT AM CDT Darian Joshi MD LAB - BLOOD ORDERABLES Performing Organization Address City/[facility]/ZIP Code Phon e Number [phone] [place] [address] LABS Factor 2 and 5 mutation analysis (02/08/2012 7:07 AM CDT) Component Value Ref Test Analysis Performed At [facility] Range Method Time Signature Copath Report Patient Name: ELINOR GUTHRIE MR#: [id number] Specimen #: [id number] Collected: 02/08/2012 07:07 Received: 02/08/2012 09:00 Reported: 02/11/2012 14:03 Ordering Phy(s): DARIAN JOSHI TEST(S) REQUESTED: A: Factor 5 Leiden and Factor 2 by PCR B: DNA Isolation, High purity extraction SPECIMEN DESCRIPTION: Blood METHODOLOGY: ?? The regions of genomic DNA containing the G1 691A Factor 5 gene mutation (Factor V Leiden) and the Factor 2(Prothrombin [id number]) gene mutation were simultaneously amplified using the polyme rase chain reaction. ??The amplified products were digested with restri ction endonuclease TaqI and products were analyzed by gel electrop horesis. RESULTS: FACTOR 5-LEIDEN RESULTS: Mutation analyzed: ? 1691G>A Factor 5 Mutation Interpretation: ?ABSENT Factor 5 Mutation genotype: ?G/G FACTOR 2/PROTHROMBIN RESULTS: Mutation analyzed: ? [id number]>[id number] Factor 2 Mutation Interpretation: ?ABSENT Factor 2 Mutation genotype: ?G/G INTERPRETATION: The patient is negative for the Factor 5 mutation and negati ve for the Factor 2 mutation. This test was developed and its performance determined by [facility] ??[facility] Diagnostic Laboratory. It has [...] Liliya Stone MD TESTING LAB LOCATION: [address] [id number] COLLECTION SITE: Client: ??[facility] Location: ??UUTXO (B) Specimen Anatomical Collection Method Collection Time Receive d Time (Source) Location / / Volume Laterality 02/08/2012 7:07 AM 2 9:00 CDT AM CDT Provider Unknown LAB - GENOMICS Performing Organization Address City/State/ZIP Code Phon e Number [facility] (ABNORMAL) Routine UA with microscopic (02/08/2012 7:06 AM CDT) Component Value Ref Test Analysis Performed At [facility] gist Range Method Time Signature Color Urine Light Yellow [facility] Appearance Urine Clear [facility] Glucose Urine 300 (A) NEG [facility] mg/dL [facility] Bilirubin Urine Negative NEG [facility] Ketones Urine Negative NEG [facility] mg/dL [facility] [place] [facility] Specific [place] 1.010 1.003 - [facility] Urine 1.035 [facility] [place] [facility] Blood Urine Negative NEG [facility] LAB[facility] pH Urine 7.5 (H) 5.0 - [facility] 7.0 pH [facility]S Protein Albumin 300 (A) NEG [facility] Urine mg/dL [facility] [place] [facility] Urobilinogen Normal 0.0 - [facility] mg/dL 2.0 [place] mg/dL CAMPUS LABS Nitrite Urine Negative NEG [facility] Leukocyte Negative NEG [facility] Esterase Urine [facility] [place] [facility] Source Unspecified [facility] Urine [facility] LAB[facility] WBC Urine 1 0 - 2 [facility] /HPF [place] [facility] RBC Urine <1 0 - 2 [facility] /HPF [facility] Hyaline Casts 3 (H) 0 - 2 [facility] /LPF [facility] Specimen Anatomical Collection Method Collection Time Receive d Time (Source) Location / / Volume Laterality Urine specimen 02/08/2012 7:06 AM 012 7:08 (specimen) CDT AM CDT Darian Joshi MD LAB - URINE ORDERABLES Performing Organization Address City/State/ZIP Code Phon e Number [facility] [address] [facility] documented in this encounter Visit Diagnoses Diagnosis Diabetes mellitus, type 2 (H) Type II or unspecified type diabetes aung litus without mention of complication, not stated as uncontrolled End stage renal disease (H) End stage renal disease documented in this encounter Care Teams Primary Teaching Assistant Relationship Specialty Start Date End Date Toña Jones MD PCP - General Nephrology 11/25/11 01/01/14 documented as of this encounter
--- OUTSIDE RECORDS SUMMARY | 2022-05-21 13:30 | XMS_ITS | Encounter Summary ---
:1950 Author Organization [facility] Address [address] [place] [address]. [place] [address] Care Team Providers Name Role Phone Toña Jones MD Primary Care Provider Ingrid Santana RN Unavailable Unavailable Momo Forbes Primary Care Provider Encounter Details Date Type Department Care Team Description 01/06/2011 Historic Results CONVERSION Provider, MD Marcela Social [...] on filedocumented in this encounter Care Teams Toter Relationship Specialty Start Date End Date Toña Jones MD PCP - General Nephrology 11/25/11 01/01/14 Momo Forbes PCP - General Family Practice 01/02/14 [facility] [address] [place] [address] Siers, Ingrid A, RN Registered Nurse Transplant 02/10/12 documented as of this encounter
--- OUTSIDE RECORDS SUMMARY | 2022-05-21 13:30 | XMS_ITS | Encounter Summary ---
:1950 Author Organization [place] Address [address] [place] [address] Care Team Providers Name Role Phone Toña Jones MD Primary Care Provider Ingrid Santana RN Unavailable Unavailable Encounter Details Date Type Department Care Team Description 02/08/2012 Orders Only [facility] Jesus Cardenas Di abetes mellitus, type 2 (H); [facility] Gordo oneal MD End stage renal disease (H); [address] DIAGNOSIS [place] [address] Social History Tobacco Use Types Packs/Day Years [...] 1:52 PM CDT) [facility] Method Time Signature ABO A [facility] RH(D) Pos [facility] Specimen 02/11/2012 [facility] Expires [facility] Specimen Anatomical Collection Method Collection Time Receive d Time (Source) Location / / Volume Laterality Blood specimen 02/08/2012 1:52 PM 012 1:54 (specimen) CDT PM CDT Chucho Joshi MD LAB - BLOOD BANK TEST ORDER Performing Organization Address City/[facility]/ZIP Code Phon e Number [id number] [place] [address] LABS EKG 12-lead, tracing only (02/08/2012 7:30 AM CDT) [facility] [place] Method Time Signature Ventricular Rate 60 BPM RADIOLOGY RESULTS Atrial Rate 60 BPM RADIOLOGY RESULTS GA Interval 186 ms RADIOLOGY RESULTS QRS Duration 104 ms RADIOLOGY RESULTS QT 440 ms RADIOLOGY RESULTS QTc 440 ms RADIOLOGY RESULTS P [place] 36 degrees RADIOLOGY RESULTS R AXIS 0 degrees RADIOLOGY RESULTS T [place] 36 degrees RADIOLOGY RESULTS Interpretation Sinus rhythm [...] DEFINED documented in this encounter Care Teams Muck Miner Blasting Relationship Specialty Start Date End Date Toña Jones MD PCP - General Nephrology 11/25/11 01/01/14 Ingrid Santana, RN Registered Nurse Transplant 02/10/12 documented as of this encounter
--- OUTSIDE RECORDS SUMMARY | 2022-05-21 13:30 | XMS_ITS | Encounter Summary ---
:1950 Author Organization [place] Address [address] [place] [address] Care Team Providers Name Role Phone Toña Jones MD Primary Care Provider Reason for Visit (Routine) - Closed Specialty Diagnoses / Procedures Referred By Contact Refer red To Contact Cardiology Diagnoses ECHO CLINIC COMPLETE ADULT Procedure Notes: DIABETES MELLITUS, TYPE 2,END STAGE RENAL DISEASE,Transplant eval,Performing Location?->[facility] Echocardiography Procedures RADIOLOGY [address] [place] [address] Phone: Referral ID Status Reason Start Date Expiration Date Visits Requ ested Visits Authorized [id number] Closed 01/21/2012 01/20/2013 1 1 Encounter Details Date Type Department Care Team Description 02/08/2012 Hospital Encounter [facility], [place], Jeff Joshi MD [address] [facility] [address] [place] [address] Diabetes mellitus, type 2 (H); Echocardiography Rajat German MD [address] [facility] [address] [facility] [address] [place] [address] End stage renal disease (H) [address] [place] [address] Social History Tobacco Use Types [...] 0 02/10/2012 10 MG tablet daily. B osbtkqg-G-mafnm acid Take 1 capsule by mouth 0 [...] - Clinic (PWB) (02/08/2012 1:13 PM CDT) [facility] Method Time Signature [facility] RADIOLOGY Interpretation Summary [...] disease documented in this encounter Care Teams Driveway Attendant Relationship Specialty Start Date End Date Toña Jones MD PCP - General Nephrology 11/25/11 01/01/14 documented as of this encounter
--- OUTSIDE RECORDS SUMMARY | 2022-05-21 13:30 | XMS_ITS | Encounter Summary ---
:1950 Author Organization [place] Address [address] [place] [place] [address] Care Team Providers Name Role Phone Toña Jones MD Primary Care Provider Ingrid Santana RN Unavailable Unavailable Momo Forbes Primary Care Provider Encounter Details Date Type Department Care Team Description 12/09/2005 Historic Results CONVERSION Provider, MD Marcela Social [...] filedocumented in this encounter Care Teams Furnace Operator And Tender Relationship Specialty Start Date End Date Toña Jones MD PCP - General Nephrology 11/25/11 01/01/14 Momo Forbes PCP - General Family Practice 01/02/[address] [address] Ingrid Santana, RN Registered Nurse Transplant 02/10/12 documented as of this encounter
--- OUTSIDE RECORDS SUMMARY | 2022-05-21 13:30 | XMS_ITS | Encounter Summary ---
:1950 Author Organization [place] Address [address] [place] [address] Care Team Providers Name Role Phone Toña Jones MD Primary Care Provider Ingrid Santana RN Unavailable Unavailable Encounter Details Date Type Department Care Team Description 02/08/2012 Results Only LABORATORY RESULTS Jeff Joshi MD [address] [facility] [address] [place] [address] (Wo rk) Social [...] Immunology/Histocompatabil [place], [place] [address] ity [facility] [address] [facility] [address] Building, Room 3-580 HISTOTRAC documented in this encounter Visit Diagnoses Not on filedocumented in this encounter Care Teams Skein Bleacher Relationship Specialty Start Date End Date Toña Jones MD PCP - General Nephrology 11/25/11 01/01/14 Ingrid Santana RN Registered Nurse Transplant 02/10/12 documented as of this encounter
--- OUTSIDE RECORDS SUMMARY | 2022-05-21 13:31 | XMS_ITS | Encounter Summary ---
:1950 Author Organization [place] Address [address] [place] [address]. [place] [address] Care Team Providers Name Role Phone Toña Jones MD Primary Care Provider Ingrid Santana RN Unavailable Unavailable Momo Forbes Primary Care Provider Encounter Details Date Type Department Care Team Description 01/28/1998 [facility] Cesar Burton [facility] [address] [place], [place] [address] (Wo rk) Social History Tobacco Use Types Packs/Day Years Used Date Never Assessed Sex Assigned at Date Recorded Not on file documented as of this encounter Plan of Treatment Not on filedocumented as of this encounter Visit Diagnoses Not on filedocumented in this encounter Care Teams Proposal Editor Relationship Specialty Start Date End Date Toña Jones MD PCP - General Nephrology 11/25/11 01/01/14 Momo Forbes PCP - General Family Practice 01/02/14 [facility] [address] [place] [address] Ingrid Santana, RN Registered Nurse Transplant 02/10/12 documented as of this encounter
== END 2022-05-21 13:15 | disposition home or self-care (01) ==
LOC: WOUND 13:14
PROVIDERS: PCP Family Medicine; Visit Provider Surgery
DX: L89.313 Pressure ulcer of right buttock, stage 3 (principal)
CPT/HCPCS: 99212

== ENCOUNTER 2022-05-24 11:42 | Outpatient (CLI) | payer MEDICARE, BC, SELFPAY ==
--- OUTSIDE RECORDS SUMMARY | 2022-05-24 11:44 | XMS_ITS | Clinical Summary ---
:1950 Author Organization [employer] [facility] [place] [address] Care Team Providers Name Role Phone Momo Forbes MD Primary Care Provider [phone] Allergies No known active allergies Medications [...] infection (HC) use Med[facility] Wound Vac at [facility] Right foot wound debridement with application of integra bilayer matrix and wound vac, 10.0 cm x 5.0 cm x 0.6 cm. M- W-F dressing changes gabapentin Take 1 capsule by 21 capsule 0 09/26/2020 Active (NEURONTIN) 300 mg mouth 3 times capsuleIndications: daily. Indications: neuropathic pain neuropathic pain durable medical Custom IVANOF [place]AY boot to 1 Each 0 11/26/2020 Active [...] Visit Angie Chatterjee, DPM [address] [place] [address] (Wo rk) Health Maintenance Due Date Last [...] Christoph 140/90 Medical Devices Implanted Type Area Community Service Worker Device Shelf Model / Identifier Expiration Date Ser ial / Lot Drsg Wound 4x5in Matrix Bilayer Right: 08/21/2020 [id number] / Implanted: Qty: 1 on 09/23/2020 by Araceli Fowler DPM at [facility] / [id number] Description: DRSG WOUND 4X5IN MATRIX JYOTI BHAVIK [...] Organization Address City/State/ZIP Code Phon e Number [facility] [address] [place] [address] LABORATORY-CENTRAL 1999 LABORATORY PATH TISSUE EXAM (04/07/2022 11:40 AM CDT)Only the most recent of2 resultswithin the time period is included. Component Value Ref Test Analysis Performed At [facility] gist Range Method Time Signature Case Report Pathology Report ?Case: [id number] ? 04/12/2022 [facility] Authorizing Provider: ??Unkn own, Doctor ?Collected: ? 04/07/2022 1140 ? 11:31 AM LABO RATORY-CE Ordering Location: ? [facility] CENTRAL LAB ?Received: ?04/08/2022 1609 ? CDT NT RAL Pathologist: ? Ricky Lisa ? LABORATORY ? MD Jessie ? Specimen: ?Right Clavicl e ? Final A) SKIN, RIGHT CLAVICLE, WOUND, BIOPSY: 04/12/2022 [facility] Electronically Diagnosis 1. Ulceration with serum crust and underlying granulat ion tissue 11:31 AM LABORATORY-CE signed by 2. Negative for malignancy CDT NTR Ricky Roberts MD on 04/12/20 22 at 11:31 AM Comment The presence 04/12/2022 [facility] of blue and 11:31 AM LABORATORY-CE green ink are CDT NTRAL confirmed on LABORATORY tissue sections. Clinical Mr. Guthrie is 04/12/2022 [facility] Information a 72 y.o. with 11:31 AM [...] LABORATORY LH 04/08/2022 Microscopic The final 04/12/2022 [facility] Description diagnosis is 11:31 AM LABORATORY-CE based on CDT NTRAL microscopic LABORATORY examination of appropriate sections of all specimens. Additional 04/12/2022 [facility] Information Interpreted at [facility], Central Laboratory - [address], [place] [address] 11:31 AM LABORATORY-CE CDT NTRAL LABORATORY Specimen Anatomical Collection Method Collection Time Receive d Time (Source) Location / / Volume Laterality Other (Right 04/07/2022 11:40 04/08/2022 4:09 Clavicle) AM CDT PM CDT Doctor Unknown PATHOLOGY/CYTOLOGY Performing Organization Address City/State/ZIP Code Phon e Number [facility] [address] [place] [address] LABORATORY-CENTRAL 2000 LABORATORY from Last 3 Months Additional Health Concerns Infection Onset Date Last Indicated MRSA ClearanceComment: If >12 months sin ce positive culture, precautions can be discontinued if patient has no MRSA risk factors. 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 right check exclusions for contact precaution dis continuation (if > 12 months since positive culture): resides in acute/long term care administrator care, receiving hemodialysis, has chronic open wounds/skin damage, has long-te rm percutaneous indwelling medical devic es Exclusions for nares collection (if <12 months since positive culture) include all of the previous exclusions plus patients on antibiotics 7 days prior to collection Insurance Payer Benefit Plan / Subscriber ID Effective Phone Address T ype Group Dates MEDICARE PART MEDICARE PART A [id number] 2011-Prese A TTN: CLAIMS A - HB USE HB ONLY nt [address] [place] [address] MEDICARE PART MEDICARE PART B [id number] 2012-Pres A TTN: CLAIMS B - HB USE HB ONLY ent [address] [place] [address] MEDICARE - PB MEDICARE PB [id number] 2014-Prese ATTN: CLAIMS USE ONLY ONLY nt [address] [place] [place] [address] BLUE CROSS BLUE CROSS OF [id number] 2016-Prese [address] [place] [address] BLUE CROSS BLUE CROSS OF [id number] 2013-Prese [address] [place] [address] MEDICARE PPS HC MEDICARE PPS [id number] 2011-Prese [address] [place] [address] (Home) [place] [id number] Diego Guthrie Personal/Family Self [address] (Home) [place] [id number] Diego Guthrie Personal/Family Self [address] (Home) [place] [id number] Diego Guthrie Long-Term Self [id number] (Home) [place] [id number] Advance Directives Documents on File Type Date Recorded Patient Shoe Stainer Explanati on POLST 09/26/2020 Latest Code Status [...] AM Code Status Discussion: Discussed Care Teams Cytologist Relationship Specialty Start Date End Date Momo Forbes MD PCP - General Family Practice 01/22/211999 [place] [address]
--- OUTSIDE RECORDS SUMMARY | 2022-05-24 11:45 | XMS_ITS | Encounter Summary ---
:1950 Author Organization [place] Address [address] [place] [address]. [place] [address] Care Team Providers Name Role Phone Momo Forbes Primary Care Provider Joseph Quintana MD Unavailable Reason for Visit Reason Onset Date Comments Erroneous encounter-disregard 05/02/2022 Encounter Details Date Type Department Care Team Description 05/02/2022 Telephone [facility] Gretta Peacock RN Baldev eo Transplant Clinic encounter-disregard 9 [place] [address] Social History Tobacco Use Types [...] on filedocumented in this encounter Care Teams Lease Analyst Relationship Specialty Start Date End Date Momo Forbes PCP - General Family Practice 01/02/14 [facility] [address] [place] [address] Joseph Quintana, Assigned Nephrology 03/29/21 MD Provider 7 [facility] 353 [facility] [address] [place] [address] documented as of this encounter
--- OUTSIDE RECORDS SUMMARY | 2022-05-24 11:45 | XMS_ITS | Encounter Summary ---
:1950 Author Organization [place] Address [address] [place] [address] Care Team Providers Name Role Phone Momo Forbes Primary Care Provider Joseph Quintana MD Unavailable Reason for Visit Reason Onset Date Comments Transplant Lab 05/04/2021 Encounter Details Date Type Department Care Team Description 05/04/2021 Telephone [facility] Transplant Krys Garcia, Transplant Lab Clinic RN [address] [place] [phone] Social History Tobacco Use Types [...] maroon colored stools. he had colonoscopy with [facility] about a year ago. Appears in CareEverywhere colonoscopy was 03/20/2015. Latrell denies infectious symptoms currently but reports he had R foot surgery at [facility] this last winter for diabetic foot ulcer. Infection in bottom of foot; laid up since Sep. Pretty well healed except a little speck. Follows up with Dr. Chatterjee. Will check iron panel on next labs. Orders sent. Barbie Ugalde RN, BSN Solid Organ Transplant, Post Kidney and Pancreas Transplant Production Machine Computer Operator [phone] Telephone Encounter - Krys Garcia RN - 05/04/2021 8:09 AM CDT ISSUE: Falling hemoglobin. documented in this encounter Plan of Treatment Not on filedocumented as of this encounter Visit Diagnoses Not on filedocumented in this encounter Care Teams Gynecological Assistant Relationship Specialty Start Date End Date Momo Forbes PCP - General Family Practice 01/02/14 [facility] [address] [place] [address] Joseph Quintana, Assigned Nephrology 03/29/21 MD Provider 717 [facility] 353 [facility] [address] [place] [address] documented as of this encounter
--- OUTSIDE RECORDS SUMMARY | 2022-05-24 11:45 | XMS_ITS | Encounter Summary ---
:1950 Author Organization [place] Address [address] [place] [address] Care Team Providers Name Role Phone Momo Forbes Primary Care Provider Joseph Quintana MD Unavailable Reason for Visit Reason Onset Date Comments Transplant 09/22/2021 Encounter Details Date Type Department Care Team Description 09/22/2021 Telephone [facility] Barbie [facility]galde [facility] BOGDAN Nam [address] [place] [address] [phone] Social History Tobacco Use Types Packs/Day [...] Barbie Ugalde RN - 09/22/2021 2:16 PM DIPLOMA MAKER Post discharge from [facility] 09/20/21; to rehab/TCU due to wound on stump; can't wear prosthetic until healed. UTI on Cephelaxin 500 mg TID. Katharine TCU Unit Phone [facility] [phone] Phone RN mgr Baker [phone] Discussed Prograf dose was 1.5 mg at hospital. Should be 1 mg AM/0.5 mg PM. Repeat level with BMP [facility] 09/24/21. Verbal orders taken by admissions. Barbie Crisostomo, RN, BSN Solid Organ Transplant, Post Kidney and Pancreas Transplant Air Crew Supervisor [phone] OMA MAKER Telephone Encounter - Azael Rodriguez - 09/22/2021 12:09 PM CST Katharine under the new name [facility] TCU has questions regarding medicationsand lab. OMA MAKER documented in this encounter Plan of Treatment Not on filedocumented as of this encounter Visit Diagnoses Not on filedocumented in this encounter Care Teams Oracle Software Engineer Relationship Specialty Start Date End Date Momo Forbes PCP - General Family Practice 01/02/14 [facility] [address] [place] [address] Joseph Quintana, Assigned Nephrology 03/29/21 MD Provider [address] [place] [address] [address] [place] [address] documented as of this encounter
--- OUTSIDE RECORDS SUMMARY | 2022-05-24 11:45 | XMS_ITS | Encounter Summary ---
:1950 Author Organization [place] Address [facility] [place] [address] Care Team Providers Name Role Phone Momo Forbes Primary Care Provider Joseph Quintana MD Unavailable Reason for Visit Reason Onset Date Comments Voicemail 04/13/2022 Encounter Details Date Type Department Care Team Description 04/13/2022 Telephone [facility] Transplant Obdulia Peacock, BOGDAN Voicemail Clinic [address] [place] [address] [phone] Social History Tobacco Use Types Packs/Day [...] to patient via mail Gretta Peacock RN Security Orderly [phone] Telephone Encounter - Adriana Raza - 04/13/2022 2:31 PM CDT Voicemail Date/Time: 04/13/22 2:27 pm Reason for call: Diego received a letter stating we have been trying ot reach him so he was responding documented in this encounter Plan of Treatment Not on filedocumented as of this encounter Visit Diagnoses Not on filedocumented in this encounter Care Teams Shank Piece Tacker Relationship Specialty Start Date End Date Momo Forbes PCP - General Family Practice 01/02/14 [facility] [address] [place] [address] Joseph Quintana, Assigned Nephrology 03/29/21 MD Provider [address] [place] [address] documented as of this encounter
--- OUTSIDE RECORDS SUMMARY | 2022-05-24 11:45 | XMS_ITS | Encounter Summary ---
:1950 Author Organization [place] Address [address] [place] [address] Care Team Providers Name Role Phone Momo Forbes Primary Care Provider Joseph Quintana MD Unavailable Reason for Visit Reason Onset Date Comments Transplant Lab 05/04/2022 Elevated serum creat inine and proteinuria Encounter Details Date Type Department Care Team Description 05/04/2022 Telephone [facility] Gretta Peacock RN Trans plant Lab (Elevated Transplant Clinic serum creatinine and [address] proteinuria) [place] [address] Social History Tobacco Use Types [...] on filedocumented in this encounter Care Teams Nuclear Cardiology Technologist Relationship Specialty Start Date End Date Momo Forbes PCP - General Family Practice 01/02/14 [facility] [address] [place] [address] Joseph Quintana, Assigned Nephrology 03/29/[address] [place] [address] 1932 [place] [address] documented as of this encounter
--- OUTSIDE RECORDS SUMMARY | 2022-05-24 11:45 | XMS_ITS | Encounter Summary ---
:1950 Author Organization [place] Address [address] [place] [address] Care Team Providers Name Role Phone Momo Forbes Primary Care Provider Joseph Quintana MD Unavailable Encounter Details Date Type Department Care Team Description 11/16/2021 External Order [facility] Outside, Provide r Results Molecular Diagnostic s [address] [place] [address] Social History Tobacco Use Types Packs/Day Years [...] BLOOD ORDERABLES Performing Organization Address [facility] Code Phon e Number BREEZE PFT NON-INTERFACED (ONBASE SCANS) (ABNORMAL) Lipid Profile (11/16/2021 7:12 PM CDT) [facility] Method Time Signature Cholesterol 98 90 [...] LAB - BLOOD ORDERABLES Performing Organization Address City/[facility]/ZIP Code Phon e Number BREEZE PFT NON-INTERFACED (ONBASE SCANS) (ABNORMAL) CBC with Platelets & Differential (11/16/2021 4:35 PM CDT) [facility] Method Time Signature WBC Count 6.8 [...] LAB - BLOOD ORDERABLES Performing Organization Address City/[facility]/ZIP Code Phon e Number BREEZE PFT NON-INTERFACED (ONBASE SCANS) documented in this encounter Visit Diagnoses Not on filedocumented in this encounter Care Teams Camelid Fiber Sorter Relationship Specialty Start Date End Date Momo Forbes PCP - General Family Practice 01/02/14 [facility] [address] [place] [address] Joseph Quintana, Assigned Nephrology 03/29/21 MD Provider 717 [facility] 353 [facility] [address] [place], [place] [address] documented as of this encounter
--- OUTSIDE RECORDS SUMMARY | 2022-05-24 11:45 | XMS_ITS | Encounter Summary ---
:1950 Author Organization [place] Address [facility] [place] [address] Care Team Providers Name Role Phone Momo Forbes Primary Care Provider Joseph Quintana MD Unavailable Reason for Visit Reason Onset Date Comments Transplant 12/02/2021 Encounter Details Date Type Department Care Team Description 12/02/2021 Telephone [facility] Transplant Obdulia Peacock, sail finisher machine Clinic [address] [place] [address] [phone] Social History Tobacco Use Types Packs/Day [...] to confirm he received message. Gretta Peacock sail finisher machinePolice Shift Commander [phone] ADDENDUM: left message for patient stating he has active orders at preferred lab. Asked to please obtain a full set of transplant labs as soon as possible. Gretta Peacock sail finisher machinePolice Shift Commander [phone] documented in this encounter Plan of Treatment Not on filedocumented as of this encounter Visit Diagnoses Not on filedocumented in this encounter Care Teams Fuel System Maintenance Worker Relationship Specialty Start Date End Date Momo Forbes PCP - General Family Practice 01/02/14 [facility] [address] [place] [address] Joseph Quintana, Assigned Nephrology 03/29/[address] [place] [address] [address] [place] [address] documented as of this encounter
--- OUTSIDE RECORDS SUMMARY | 2022-05-24 11:45 | XMS_ITS | Encounter Summary ---
:1950 Author Organization [place] Address [facility] [place] [address] Care Team Providers Name Role Phone Momo Forbes Primary Care Provider Joseph Quintana MD Unavailable Reason for Visit Reason Onset Date Comments Left Message To Call 05/06/2022 Left 05/06/2022 at 11:55PM., Wanted to discuss lab results Encounter Details Date Type Department Care Team Description 05/06/2022 Telephone [facility] Gretta Peacock RN Left Message To Call Transplant Clinic (Left 05/06/[address] [place] [address] SE 11:55PM., Wanted to [place], [place] discuss lab results) [phone] Social History [...] filedocumented in this encounter Care Teams Water Registrar Relationship Specialty Start Date End Date Momo Forbes PCP - General Family Practice 01/02/14 [facility] [address] [place] [address] Joseph Quintana, Assigned Nephrology 03/29/21 MD Provider 717 [facility] 353 [facility] [address] [place] [address] documented as of this encounter
--- OUTSIDE RECORDS SUMMARY | 2022-05-24 11:45 | XMS_ITS | Encounter Summary ---
:1950 Author Organization [place] Address [address] [place] [address]. [place] [address] Care Team Providers Name Role Phone Momo Forbes Primary Care Provider Joseph Quintana MD Unavailable Encounter Details Date Type Department Care Team Description 08/25/2021 Orders Only [facility], Kidney tr ansplanted; Transplant Clinic BOGDAN Marcano -donor kidney transp lant recipient [address] [place] [phone] Social History Tobacco Use Types Packs/Day [...] documented in this encounter Care Teams Supervisor Fireworks Assembly Relationship Specialty Start Date End Date Momo Forbes PCP - General Family Practice 01/02/14 [facility] [address] [place] [address] Joseph Quintana, Assigned Nephrology 03/29/21 Provider 7 [facility] 353 [facility] 1932 [place], [place] [address] documented as of this encounter
--- OUTSIDE RECORDS SUMMARY | 2022-05-24 11:45 | XMS_ITS | Clinical Summary ---
:1950 Author Organization [place] Address [facility] [place] [address] Care Team Providers Name Role Phone Momo [...] Problem list name updated by automated p [employer]. Provider to review Gout 12/02/2011 Peripheral neuropathy 12/02/2011 Diabetic retinopathy 12/02/2011 HTN, kidney transplant related 12/02/2011 Overview: Problem list name updated by automated p [employer]. Provider to review DM (diabetes mellitus), type 2 12/02/2011 History of tobacco use 12/02/2011 Thrombocytopenia 12/02/2011 Malaise and fatigue 12/02/2011 Overview: Problem list name updated by automated p [employer]. Provider to review Depression Resolved Problems Problem [...] Comments Blood Pressure 169/76 10/09/2019 2:35 PM [employer] Pulse 67 10/09/2019 2:35 PM [employer] Temperature 36.5 ??C (97.7 ??F) 10/17/2018 1:54 PM [employer] Respiratory Rate 18 10/25/2016 4:39 PM [employer] Oxygen Saturation 95% 10/09/2019 2:35 PM [employer] Inhaled Oxygen Concentration - - Weight 132.5 kg (292 lb 1.6 oz) 10/09/2019 2:35 PM [employer] Height 182.9 cm (6') 10/10/2017 2:25 PM [employer] Body Mass Index 39.62 10/10/2017 2:25 PM [employer] Plan of Treatment Health Maintenance Due Date [...] this topic Medical Devices Explanted Type Area Certified Flight Instructor Device Shelf Model / Identifier Expiration Serial / Date Lot Stent Ureteral Childress Renal Transplant [id number] Right: [employer] 11/19/2016 [id number] / Implanted: Qty: 1 on 02/02/2014 by Migel Viveros MD at [facility] [employer] / Explanted: Qty: 1 on 04/01/2014 by Celina Helton MD at [facility] [id number] Procedures Procedure Name Priority Date/Time Associated Comments [...] Platelets & Differential (04/29/2022 11:40 AM CDT) [facility] gist Method Time Signature WBC [...] LAB - BLOOD ORDERABLES Performing Organization Address City/State/[facility] Code Phon e Number [...] LAB - URINE ORDERABLES Performing Organization Address [facility] Phon e Number BREEZE PFT NON-INTERFACED (ONBASE [...] Address T ype Group Dates MEDICARE MEDICARE [id number] 2011-Prese [phone] ATTN RONEN [place] Medicare nt 40 [address] [place] [address] [place] [id number] 2016-Prese [phone] [address] [address] Indemnity nt [address] [place] [address] Diego Guthrie Personal/Family Self [address] [place] (Home) [facility] [place] [address] Advance Directives For more information, please contact: [phone] Latest Code Status on File Code Status Date Activated Date Inactivated Comments Full Code 04/01/2014 9:03 AM Full Code 02/08/2014 7:12 AM 04/01/2014 9:03 AM Full Code 02/03/2014 12:56 AM 02/08/2014 7:12 AM Care Teams Order Entry Specialist Relationship Specialty Start Date End Date Momo Forbes PCP - General Family Practice 01/02/14 [facility] [address] [place] [address] Joseph Quintana, Assigned Nephrology 03/29/21 MD Provider [address] [place] [address] 1932 [place] [address]
--- OUTSIDE RECORDS SUMMARY | 2022-05-24 11:45 | XMS_ITS | Encounter Summary ---
:1950 Author Organization [place] Address [address] [facility] [place] [address] Care Team Providers Name Role Phone Forbes, Ton Primary Care Provider Reason for Visit Reason Comments RECHECK Follow Up [place] Encounter Details Date Type Department Care Team Description 03/05/2021 Virtual Visit [facility] Joseph Quintana HTN, ki dney transplant related (Primary Dx); Nephrology Clinic MD Herminio Kidney replaced by transplant; [address] Aftercare following organ tr ansplant; [address] [place] [address] SE RANJAN 353 [facility] Immunosu ppression (H); [place] 1932 Vitamin D deficiency; [place] [phone] [phone] Social History Tobacco Use Types Packs/Day Years [...] would you like to be contacted at? [phone] How would you like to obtain your [...] and ended up being discharged to a long term. He is doing better and now back [...] unspecified documented in this encounter Care Teams General Intern Relationship Specialty Start Date End Date Momo Forbes PCP - General Family Practice 01/02/14 [facility] [address] [place] [address] documented as of this encounter
--- OUTSIDE RECORDS SUMMARY | 2022-05-24 11:45 | XMS_ITS | Encounter Summary ---
:1950 Author Organization [place] Address [facility] [place] [address] Care Team Providers Name Role Phone Momo Forbes Primary Care Provider Joseph Quintana MD Unavailable Reason for Visit Reason Onset Date Comments Transplant 01/21/2022 Hyperglycemia, eleva moni [facility] Encounter Details Date Type Department Care Team Description 01/21/2022 Telephone [facility] Gretta Peacock RN Trans plant Transplant Clinic (Hyperglycemia, elevated [address] [facility]) [place] [address] Social History Tobacco Use Types [...] 12:07 PM CDT ISSUE: trend up in [facility], hyperglycemia OUTCOME: phone call attempted X3. Will send letter via mail. Gretta Peacock RN Skimmer Reverberatory [phone] documented in this encounter Plan of Treatment Not on filedocumented as of this encounter Visit Diagnoses Not on filedocumented in this encounter Care Teams Sales Office Administrator Relationship Specialty Start Date End Date Momo Forbes PCP - General Family Practice 01/02/14 [facility] [address] [place] [address] Joseph Quintana, Assigned Nephrology 03/29/21 MD Provider [address] [place] [address] 1932 [place] [address] documented as of this encounter
--- OUTSIDE RECORDS SUMMARY | 2022-05-24 11:45 | XMS_ITS | Encounter Summary ---
:1950 Author Organization [place] Address [address] [place] [address] Care Team Providers Name Role Phone Momo Forbes Primary Care Provider Joseph Quintana MD Unavailable Encounter Details Date Type Department Care Team Description 12/09/2021 External Order [facility] Outside, Provide r Results Molecular Diagnostic s [address] [place] [address] Social History Tobacco Use Types Packs/Day Years [...] filedocumented in this encounter Care Teams Tax Analyst Relationship Specialty Start Date End Date Momo Forbes PCP - General Family Practice 01/02/14 [facility] [address] [place] [address] Joseph Quintana, Assigned Nephrology 03/29/21 Provider 717 [facility] 353 [facility] [address] [place] [address] documented as of this encounter
--- OUTSIDE RECORDS SUMMARY | 2022-05-24 11:45 | XMS_ITS | Encounter Summary ---
:1950 Author Organization [place] Address [address] [place] [address] Care Team Providers Name Role Phone Momo Forbes Primary Care Provider Joseph Quintana MD Unavailable Encounter Details Date Type Department Care Team Description 01/19/2022 External Order [facility] Outside, Provide r Results Molecular Diagnostic s [address] [place] [address] Social History Tobacco Use Types Packs/Day Years [...] UA with Microscopic (01/19/2022 11:16 AM CDT) [facility] gist Method Time Signature Color Urine YEL YELLOW NON-INTERFAC (External) ED (ONBASE SCANS) Appearance Urine CLEAR CLEAR NON-INTERFAC (External) ED (ONBASE SCANS) Glucose Urine 2+ NEGATIVE NON-INTERFAC (External) ED (ONBASE SCANS) Bilirubin Urine NEG NEGATIVE NON-INTERFAC (External) ED (ONBASE SCANS) Ketones Urine NEG NEGATIVE NON-INTERFAC (External) ED (ONBASE SCANS) Specific Gipsy 1.010 1.005 - NON-INTERFAC Urine (External) 1.030 [...] on filedocumented in this encounter Care Teams College Athletic Director Relationship Specialty Start Date End Date Momo Forbes PCP - General Family Practice 01/02/14 [facility] [address] [place] [address] Joseph Quintana, Assigned Nephrology 03/29/[address] [place] [address] 1932 [place], [place] [address] documented as of this encounter
--- OUTSIDE RECORDS SUMMARY | 2022-05-24 11:45 | XMS_ITS | Encounter Summary ---
:1950 Author Organization [place] Address [facility] [place] [address] Care Team Providers Name Role Phone Momo Forbes Primary Care Provider Joseph Quintana MD Unavailable Encounter Details Date Type Department Care Team Description 04/30/2021 External Order [facility] Outside, Provide r Results Molecular Diagnostic s [address] [place] [address] Social History Tobacco Use Types Packs/Day Years [...] Platelets & Differential (04/30/2021 11:20 AM CDT) [facility] gist Method Time Signature [...] on filedocumented in this encounter Care Teams Cork Floor Installer Relationship Specialty Start Date End Date Momo Forbes PCP - General Family Practice 01/02/14 [facility] 1999 [place], [place] [id number] Joseph Quintana, Assigned Nephrology 03/29/21 MD Provider 717 [facility] 353 [facility] 1932 [place] [address] documented as of this encounter
--- OUTSIDE RECORDS SUMMARY | 2022-05-24 11:45 | XMS_ITS | Encounter Summary ---
:1950 Author Organization [place] Address [address] [place] [address] Care Team Providers Name Role Phone Momo Forbes Primary Care Provider Joseph Quintana MD Unavailable Encounter Details Date Type Department Care Team Description 04/29/2022 External Order [facility] Outside, Provide r Results Molecular Diagnostic s [address] [place] [address] Social History Tobacco Use Types Packs/Day Years [...] filedocumented in this encounter Care Teams News Technical Director Relationship Specialty Start Date End Date Momo Forbes PCP - General Family Practice 01/02/14 [facility] [address] [place] [address] Joseph Quintana, Assigned Nephrology 03/29/21 Provider 717 [facility] 353 [facility] 1932 [place] [address] documented as of this encounter
--- OUTSIDE RECORDS SUMMARY | 2022-05-24 11:45 | XMS_ITS | Encounter Summary ---
:1950 Author Organization [place] Address [address] [place] [address]. [place] [address] Care Team Providers Name Role Phone Momo Forbes Primary Care Provider Joseph Quintana MD Unavailable Reason for Visit Reason Onset Date Comments Refill Request 08/25/2021 Prograf 0.5mg Encounter Details Date Type Department Care Team Description 08/25/2021 Telephone [facility], Refil l Request (Prograf Transplant Clinic 0.5mg) [address] [place] [phone] Social History Tobacco Use Types [...] Miscellaneous Notes Telephone Encounter - Meghan Mccormack [facility] - 08/25/2021 2:15 PM CST Medication/Refill approved per CPA: [facility] COLLABORATIVE AGREEMENT FOR IMMUNOSUPPRESSENT PRESCRIPTION MODIFICATION. Routing encounter to Transplant as an FYI. 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
--- OUTSIDE RECORDS SUMMARY | 2022-05-24 11:45 | XMS_ITS | Encounter Summary ---
:1950 Author Organization [place] Address [address] [place] [address]. [place] [address] Care Team Providers Name Role Phone Momo Forbes Primary Care Provider Joseph Quintana MD Unavailable Reason for Visit Reason Onset Date Comments Refill Request 08/25/2021 Encounter Details Date Type Department Care Team Description 08/25/2021 Refill [facility] Transplant Debbie Calderon LPN Refill Request Clinic [address] [place] [address] [phone] Social History Tobacco Use Types Packs/Day [...] transplant documented in this encounter Care Teams Special Educator Relationship Specialty Start Date End Date Momo Forbes PCP - General Family Practice 01/02/14 [facility] [address] [place] [address] Joseph Quintana, Assigned Nephrology 8/8/21 MD Provider 7 [facility] 353 [facility] 1932 [place], [place] [address] documented as of this encounter
--- OUTSIDE RECORDS SUMMARY | 2022-05-24 11:45 | XMS_ITS | Encounter Summary ---
:1950 Author Organization [place] Address [facility] [place] [address] Care Team Providers Name Role Phone Momo Forbes Primary Care Provider Joseph Quintana MD Unavailable Reason for Visit Reason Onset Date Comments Transplant Lab 12/10/2021 Encounter Details Date Type Department Care Team Description 12/10/2021 Telephone [facility] Transplant Mati Recinos RN Transplant Lab Clinic [address] [place] [address] [phone] Social History Tobacco Use Types Packs/Day [...] on filedocumented in this encounter Care Teams Blocker And Polisher Gold Wheel Relationship Specialty Start Date End Date Momo Forbes PCP - General Family Practice 01/02/14 [facility] [address] [place] [address] Joseph Quintana, Assigned Nephrology 03/29/21 MD Provider 717 [facility] 353 [facility] 1932 [place] [address] documented as of this encounter
--- OUTSIDE RECORDS SUMMARY | 2022-05-24 11:45 | XMS_ITS | Encounter Summary ---
:1950 Author Organization [place] Address [facility] [place] [address] Care Team Providers Name Role Phone Momo Forbes Primary Care Provider Joseph Quintana MD Unavailable Reason for Visit Reason Onset Date Comments Medication Refill Refill Request 08/20/2021 Encounter Details Date Type Department Care Team Description 08/20/2021 Refill [facility] Joseph Quintana on Refill; Nephrology Clinic MD Herminio Refill Request [address] 909 [facility] 353 [facility] 1932 [place], [place] [phone] [phone] Social History Tobacco Use Types Packs/Day Years [...] documented in this encounter Care Teams Top Inventory Control Executive Relationship Specialty Start Date End Date Momo Forbes PCP - General Family Practice 01/02/14 [facility] [address] [place] [address] Joseph Quintana, Assigned Nephrology 03/29/21 MD Provider [address] [place] [address] 1932 [place] [address] documented as of this encounter
--- OUTSIDE RECORDS SUMMARY | 2022-05-24 11:45 | XMS_ITS | Encounter Summary ---
:1950 Author Organization [place] Address [address] [place] [address]. [place] [address] Care Team Providers Name Role Phone Momo [...] on filedocumented in this encounter Care Teams Broadcast Operations Manager Relationship Specialty Start Date End Date Momo Forbes PCP - General Family Practice 01/02/14 [facility] [address] [place] [address] documented as of this encounter
--- OUTSIDE RECORDS SUMMARY | 2022-05-24 11:45 | XMS_ITS | Encounter Summary ---
:1950 Author Organization [place] Address [facility]0 [place] [address] Care Team Providers Name Role Phone Momo Forbes Primary Care Provider Joseph Quintana MD Unavailable Reason for Visit Reason Onset Date Comments Transplant 11/24/2021 Encounter Details Date Type Department Care Team Description 11/24/2021 Telephone [facility] Transplant Obdulia Peacock, artist consultant Clinic [address] [place] [address] [phone] Social History Tobacco Use Types Packs/Day [...] labs drawn ~one week ago at [facility], however results have not beenfaxed to [facility]. PLAN: call lab to have results faxed OUTCOME: New labs orders sent. Most recent bmp and cbc requested from october 2021. Tac and UPC due. Left detailed message with instructions to obtain tacrolimus trough level and UPC at earliest convenience. Asked for CB to confirm understanding. Gretta Peacock artist consultantMainframe Systems Administrator [phone] Telephone Encounter - Azael Rodriguez - 11/24/2021 3:32 PM CDT Patient called to touch base with the RNCC regarding some questions. documented in this encounter Plan of Treatment Not on filedocumented as of this encounter Visit Diagnoses Not on filedocumented in this encounter Care Teams Associate Spa Director Relationship Specialty Start Date End Date Momo Forbes PCP - General Family Practice 01/02/14 [facility] [address] [place] [address] Joseph Quintana, Assigned Nephrology 03/29/21 MD Provider [address] [place] [address] 1932 [place], [place] [address] documented as of this encounter
--- OUTSIDE RECORDS SUMMARY | 2022-05-24 11:46 | XMS_ITS | Encounter Summary ---
:1950 Author Organization [place] Address [facility] [place] [address] Care Team Providers Name Role Phone Momo Forbes Primary Care Provider Reason for Visit Reason Onset Date Comments Transplant 01/07/2021 Encounter Details Date Type Department Care Team Description 01/07/2021 Telephone [facility] Barbie Ugaldelanlynda Transplant Clinic BOGDAN Nam [address] [place] [address] [phone] Social History Tobacco Use Types Packs/Day [...] CDT Patient Call: Transplant Lab/Orders Route to SUPERVISOR SLITTING AND SHIPPING Post Transplant Days: 2530 When patient is less than 60 days post-transplant, route high priority Reason for Call: Annual lab reorder fax labs to [facility] lab at [phone] Labs drawn Waiting fororders Callback needed? No documented in this encounter Plan of Treatment Not on filedocumented as of this encounter Visit Diagnoses Not on filedocumented in this encounter Care Teams Washer Off Relationship Specialty Start Date End Date Momo Forbes PCP - General Family Practice 01/02/14 [facility] [address] [place] [address] documented as of this encounter
--- OUTSIDE RECORDS SUMMARY | 2022-05-24 11:46 | XMS_ITS | Encounter Summary ---
:1950 Author Organization [place] Address [address] [place] [address]. [place] [address] Care Team Providers Name Role Phone Momo Forbes A Primary Care Provider Reason for Visit Reason Onset Date Comments Transplant Immunosuppression Management 08/11/2020 Encounter Details Date Type Department Care Team Description 08/11/2020 [facility] Barbie Ugalde [facility] nsplant Transplant Clinic BOGDAN Nam Immunosuppression [address] [place] [address] [place] [address] Social History Tobacco Use Types [...] Barbie Ugalde RN - 08/11/2020 4:16 PM HEAD OF PRECISION TARGETING ISSUE: Tacrolimus IR level 11.7 on 08/08/20, [...] Organ Transplant, Post Kidney and Pancreas Transplant Facilities Technician [phone] OUTCOME: Spoke with patient, they confirm accurate trough level and current dose 2 mg BID. Patient confirmed dose change to 1.5 mg BID and to repeat labs in 1 weeks. Orders sent to preferred pharmacy for dose change and lab for repeat labs. Patient voiced understanding of plan. OF PRECISION TARGETING documented in this encounter Plan of Treatment Not on filedocumented as of this encounter Visit Diagnoses Diagnosis Kidney transplanted - Primary Kidney replaced by transplant -donor kidney transplant recipie nt Kidney replaced by transplant documented in this encounter Care Teams Group Work Program Aide Relationship Specialty Start Date End Date Momo Forbes PCP - General Family Practice 01/02/[address] [address] documented as of this encounter
--- OUTSIDE RECORDS SUMMARY | 2022-05-24 11:46 | XMS_ITS | Encounter Summary ---
:1950 Author Organization [place] Address [facility] [place] [address] Care Team Providers Name Role Phone ForbesMomo Primary Care Provider Reason for Visit Reason Onset Date Comments Transplant 10/23/2020 Encounter Details Date Type Department Care Team Description 10/23/2020 Telephone [facility] BOGDAN Nam [address] [place] [address] [phone] Social History Tobacco Use Types Packs/Day [...] Barbie Ugalde RN - 10/23/2020 1:10 PM PRINCIPAL CONSULTING ENGINEER Latrell reports his labs were done yesterday morning at [facility]. Last night ended upat ER at [facility]. Hospital printed out copy of labs and he is worried about creatinine. Latrell states he had R foot infection that needed to be cleaned out; Had surgery last day of August onfoot at [facility]. Was hospitalized 10 days before [facility]. Last night his blood sugar was dropping low into 70s and prison staff thought his BP was jumping around to much. This morning is BP 130/76, but last night 170s. Explained to Latrell that it has been a year since lastnephrology appointment and he needs to be seen for transplant follow up. He agreed but did not want to schedule at this time but will call back to schedule. Call placed to [facility] lab to fax results. Per Lab need to speak with information management department to release records or go thru [facility] to have orders faxed. Call then returned [...] and repeating post-transplant labs in 1-2 weeks. CIPAL CONSULTING ENGINEER Telephone Encounter - Tasia Mack - 10/23/2020 10:03 AM CST Patient Call: Transplant Lab/Orders Route to ENTRY DRIVER OPERATOR Post Transplant Days: 2455 When patient is less than 60 days post-transplant, route high priority Reason for Call: Discuss lab results; which results? creatine level Callback needed? Yes Return Call Needed Same as documented in contacts section When to return call?: Greater than one day: Route standard priority CIPAL CONSULTING ENGINEER documented in this encounter Plan of Treatment Not on filedocumented as of this encounter Visit Diagnoses Not on filedocumented in this encounter Care Teams J2Ee Android Developer Relationship Specialty Start Date End Date Momo Forbes PCP - General Family Practice 01/02/14 [facility] [address] [place] [address] documented as of this encounter
--- OUTSIDE RECORDS SUMMARY | 2022-05-24 11:46 | XMS_ITS | Encounter Summary ---
:1950 Author Organization [place] Address [facility] [place] [address] Care Team Providers Name Role Phone ForbesMomo prakash A Primary Care Provider Reason for Visit Reason Onset Date Comments Transplant 07/11/2020 Encounter Details Date Type Department Care Team Description 07/11/2020 Telephone [facility] BOGDAN Nam [address] [place] [address] [phone] Social History Tobacco Use Types Packs/Day [...] Barbie Ugalde RN - 07/11/2020 2:11 PM ENGINEER AUTOMATED EQUIPMENT ISSUE: Potassium 5.2 on 07/08/20. PLAN: Assess for high dietary intake of potassium. Encouraged Diego to reduce the amount of bananas and potatoes he admitted to eating high amounts of. OUTCOME: Please have pt repeat BMP in 1 week. Orders sent NEER AUTOMATED EQUIPMENT Telephone Encounter - Barbie Ugalde RN - 07/11/2020 1:41 PM ENGINEER AUTOMATED EQUIPMENT ISSUE: Tacrolimus IR level 2.2 on 07/08/20 [...] for repeatlabs. Patient voiced understanding of plan. 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
--- OUTSIDE RECORDS SUMMARY | 2022-05-24 11:46 | XMS_ITS | Encounter Summary ---
:1950 Author Organization [place] Address [facility] [place] [address] Care Team Providers Name Role Phone Momo Forbes Primary Care Provider Joseph Quintana MD Unavailable Encounter Details Date Type Department Care Team Description 01/27/2021 External Order [facility] Outside, Provider Results Transplant Clinic [address] [place] [phone] Social History Tobacco Use Types [...] Basic metabolic panel (01/27/2021 11:45 AM CDT) [facility] gist Method Time Signature Glucose 156 (H) [...] with platelets differential (01/27/2021 11:45 AM CDT) [facility] gist Method Time Signature WBC Count 5.08 [...] filedocumented in this encounter Care Teams Machine Presser Relationship Specialty Start Date End Date Momo Forbes PCP - General Family Practice 01/02/14 [facility] [address] [place] [address] Joseph Quintana, Assigned Nephrology 03/29/[address] [place] [address] [address] [place] [address] documented as of this encounter
--- OUTSIDE RECORDS SUMMARY | 2022-05-24 11:46 | XMS_ITS | Encounter Summary ---
:1950 Author Organization [place] Address [facility] [place] [address] Care Team Providers Name Role Phone Momo Forbes Primary Care Provider Joseph Quintana MD Unavailable Encounter Details Date Type Department Care Team Description 02/02/2021 External Order [facility] Outside, Provider Results Transplant Clinic [address] [place] [phone] Social History Tobacco Use Types Packs/Day [...] by Cassie Florian on 02/04/2021. Performed by: [facility] [address] [place], [place] ??[address] Patient Reported LABORATORY Performing Organization Address City/State/ZIP Code Phon e Number [facility] COVID-19 EXTERNAL COVID-[address] RESULTS Result Scanned into Patient Record by [employer] Refer to Result Comment/Narrative for exact performing laboratory documented in this encounter Visit Diagnoses Not on filedocumented in this encounter Care Teams Welfare Service Aide Relationship Specialty Start Date End Date Momo Forbes PCP - General Family Practice 01/02/14 [facility] [address] [place] [address] Joseph Quintana, Assigned Nephrology 03/29/21 MD Provider [address] [facility] [address] [facility] [address] [place] [address] documented as of this encounter
--- OUTSIDE RECORDS SUMMARY | 2022-05-24 11:46 | XMS_ITS | Encounter Summary ---
:1950 Author Organization [place] Address [facility] [place] [address] Care Team Providers Name Role Phone Momo Forbes A Primary Care Provider Reason for Visit Reason Onset Date Comments Transplant Immunosuppression Management 07/03/2020 Late to refill Encounter Details Date Type Department Care Team Description 07/03/2020 Telephone [facility] Tram, Transplant Transplant Clinic Barbie Nam, Immunosuppression [address] [place] [address] RN Management (Late to [place], [place] refill) [phone] Social History Tobacco Use [...] Barbie Ugalde, BOGDAN - 07/03/2020 10:20 AM NICKEL OPERATOR Images from the original note were [...] copy to patient so he is aware. 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
--- OUTSIDE RECORDS SUMMARY | 2022-05-24 11:46 | XMS_ITS | Encounter Summary ---
:1950 Author Organization [place] Address [facility] [place] [address] Care Team Providers Name Role Phone Momo Forbes A Primary Care Provider Reason for Visit Reason Onset Date Comments Transplant Immunosuppression Management 09/08/2020 Encounter Details Date Type Department Care Team Description 09/08/2020 Telephone [facility] Tram, Transplant Transplant Clinic Barbie Nam, Immunosuppression [address] [place] [address] [place] [address] Social History Tobacco Use Types [...] Barbie Ugalde RN - 09/09/2020 3:06 PM FOUNTAIN BRUSH ASSEMBLER Second call placed to patient and voicemail message left. TAIN BRUSH ASSEMBLER Telephone Encounter - Barbie Ugalde RN - 09/08/2020 10:31 AM FOUNTAIN BRUSH ASSEMBLER Images from the original note were not included. Message Received: 3 days ago Message Contents Beny Staton, [facility] Barbie Ugalde, BOGDAN ?? Latrell has not filled immunos since 07/21. ??His tacro dose changed and he has not filled the 0.5mg in over a year. ??He has not returned our calls. ?? Beny Staton [facility] Specialty Pharmacist [phone] OUTCOME: Tacrolimus dose was decreased from 2mg [...] he is currently taking and need labs. TAIN BRUSH ASSEMBLER documented in this encounter Plan of Treatment Not on filedocumented as of this encounter Visit Diagnoses Not on filedocumented in this encounter Care Teams It Security Manager Relationship Specialty Start Date End Date Momo Forbes PCP - General Family Practice 01/02/14 [place] [id number] documented as of this encounter
--- OUTSIDE RECORDS SUMMARY | 2022-05-24 11:46 | XMS_ITS | Encounter Summary ---
:1950 Author Organization [place] Address [facility]0 [facility] [place] [address] Care Team Providers Name Role Phone Momo Forbes A Primary Care Provider Encounter Details Date Type Department Care Team Description 01/30/2021 Telephone [facility] Transplant Viv Torres, BOGDAN [place] [phone] Social History Tobacco Use Types Packs/Day [...] not included. Message Received: Today Beny Staton, [facility] Barbie Ugalde, RN Diego has not ordered tacro 0.5mg in over a year. ??He just ordered 1mg today but not the 0.5mg. Beny Staton [facility] Specialty Pharmacist [phone] DOUGH PUNCHER task: Can you please call Diego to find out what dose of tacrolimus he is taking and notify coordinator if different than what is prescribed. Recommend repeat tacrolimus level for previously elevated level 7.3, goal 4-6. Thank you, Barbie Ugalde RN, BSN Solid Organ Transplant, Post Kidney and Pancreas Transplant Assembler Surgical Garment [phone] Telephone Encounter - Viv Torres RN - [...] transplant documented in this encounter Care Teams Taker Off Relationship Specialty Start Date End Date Momo Forbes PCP - General Family Practice 01/02/14 [facility] [address] [place] [id number] documented as of this encounter
--- OUTSIDE RECORDS SUMMARY | 2022-05-24 11:46 | XMS_ITS | Encounter Summary ---
:1950 Author Organization [place] Address [facility]0 [facility] [place] [place] [address] Care Team Providers Name Role Phone Forbes, Momo He Primary Care Provider Encounter Details Date Type Department Care Team Description 10/23/2020 Telephone [facility] Barbie Ugalde Transplant Clinic BOGDAN Nam [address] [place], [place] [phone] Social History Tobacco Use [...] Barbie Ugalde RN - 10/23/2020 4:27 PM SENIOR MOBILE APPLICATION DEVELOPER Returned call and left second voicemail message. Patient mentioned in previous phone call he was interested in donating his body upon passing to [facility] for science. Please sent to following website for more information: [email or web address]/research/iyfsbwa-sehdhby-mwlyuph/how-donate OR MOBILE APPLICATION DEVELOPER Telephone Encounter - Gladis Sosa RN - 10/23/2020 3:21 PM CST Patient Call: Voicemail Date/Time: 10/23/20 139pm Reason for call: Patient left a message requesting a call back OR MOBILE APPLICATION DEVELOPER documented in this encounter Plan of Treatment Not on filedocumented as of this encounter Visit Diagnoses Not on filedocumented in this encounter Care Teams Inflated Ball Molder Relationship Specialty Start Date End Date Momo Forbes PCP - General Family Practice 01/02/14 [facility] [address] [place] [address] documented as of this encounter
--- OUTSIDE RECORDS SUMMARY | 2022-05-24 11:46 | XMS_ITS | Encounter Summary ---
:1950 Author Organization [place] Address [facility] [place] [address] Care Team Providers Name Role Phone Momo Forbes Primary Care Provider Joseph Quintana MD Unavailable Encounter Details Date Type Department Care Team Description 07/08/[address] [facility] Outside, Provider Results Transplant Clinic [address] [place] [phone] Social History Tobacco Use Types Packs/Day [...] 9:23 AM Results f or this RESULTS DEPARTMENT STORE MANAGER procedure are i n the results section. documented in this encounter Results External Lab Results (07/08/2020 9:23 AM DEPARTMENT STORE MANAGER) Analysis Performed At Patho logist Time Signature Scan Lab View Image LABDE SCAN Results (External) Comment: HLA Antibody Screen, Class I an d Class II Specimen (Source) Anatomical Collection Method Collection Time Re ceived Time Location / / Volume Laterality 07/08/2020 9:23 AM DEPARTMENT STORE MANAGER Narrative [facility] - 07/16/2020 2:42 PM DEPARTMENT STORE MANAGER Verified by Ruperto Pepper on 07/15/20 20. Patient Reported LABORATORY Performing Organization Address City/State/ZIP Code Phon e Number [facility] LABDE SCAN documented in this encounter Visit Diagnoses Not on filedocumented in this encounter Care Teams Caser In Relationship Specialty Start Date End Date Momo Forbes PCP - General Family Practice 01/02/14 [facility] [address] [place] [address] Joseph Quintana, Assigned Nephrology 03/29/21 MD Provider [address] [place] [address] [address] [place], [place] [address] documented as of this encounter
--- OUTSIDE RECORDS SUMMARY | 2022-05-24 11:46 | XMS_ITS | Encounter Summary ---
:1950 Author Organization [place] Address [facility] [place] [address] Care Team Providers Name Role Phone Momo Forbes Primary Care Provider Joseph Quintana MD Unavailable Encounter Details Date Type Department Care Team Description 07/08/2020 External Order [facility] Outside, Provider Results Transplant Clinic [address] [place] [phone] Social History Tobacco Use Types Packs/Day [...] 9:23 AM R esults for this DIFFERENTIAL MEAT APPRENTICE procedure are i n the results section. TACROLIMUS BY TANDEM Routine 07/08/2020 9:23 AM R esults for this MASS SPECTROMETRY MEAT APPRENTICE procedure are in the results section. PROTEIN RANDOM URINE Routine 07/08/2020 9:23 AM R esults for this MEAT APPRENTICE procedure are i n the results section. HEMOGLOBIN A1C Routine 07/08/2020 9:23 AM Results for this MEAT APPRENTICE procedure are i n the results section. HEMOGLOBIN A1C Routine 07/08/2020 9:23 AM Results for this MEAT APPRENTICE procedure are i n the results section. BASIC METABOLIC PANEL Routine 07/08/2020 9:23 AM Results for this MEAT APPRENTICE procedure are i n the results section. documented in this encounter Results (ABNORMAL) Protein random urine with Creat Ratio (07/08/2020 9:23 AM MEAT APPRENTICE) Analysis Performed At Patho logist Time Signature Protein Random 73 mg/dL LABDE SCAN Urine (External) Creatinine 65 mg/dL LABDE SCAN Urine mg/dL (External) Protein Total 1.12 (H) 0 - 0.19 LABDE SCAN Ur per Cr (External) Specimen (Source) Anatomical Collection Method Collection Time Re ceived Time Location / / Volume Laterality Urine specimen 07/08/2020 9:23 AM (specimen) MEAT APPRENTICE Narrative [facility] - 07/11/2020 11:13 AM MEAT APPRENTICE Verified by Praful Huff on 2019. Patient Reported LAB - URINE ORDERABLES Performing Organization Address City/State/ZIP Code Phon e Number [facility] LABDE SCAN (ABNORMAL) Hemoglobin A1c (07/08/2020 9:23 AM MEAT APPRENTICE) Analysis Performed At Patho logist Time Signature Hemoglobin A1C 12.3 (H) 0 - 5.6 % LABDE SCAN (External) Specimen (Source) Anatomical Collection Method Collection Time Re ceived Time Location / / Volume Laterality Blood specimen 07/08/2020 9:23 AM (specimen) MEAT APPRENTICE Narrative [facility] - 07/11/2020 11:13 AM MEAT APPRENTICE Verified by Praful Huff on 2019. Patient Reported LAB - BLOOD ORDERABLES Performing Organization Address City/State/ZIP Code Phon e Number [facility] LABDE SCAN Tacrolimus level (07/08/2020 9:23 AM MEAT APPRENTICE) P athologist Signature Tacrolimus(FK- 2.2 See scanned LABDE SCAN 506) report ng/mL (External) Specimen (Source) Anatomical Collection Method Collection Time Re ceived Time Location / / Volume Laterality Blood specimen 07/08/2020 9:23 AM (specimen) MEAT APPRENTICE Narrative [facility] - 07/11/2020 11:13 AM MEAT APPRENTICE Verified by Praful Huff on 2019. Patient Reported LAB - BLOOD ORDERABLES Performing Organization Address City/State/ZIP Code Phon e Number [facility] LABDE SCAN (ABNORMAL) Hemoglobin A1c (07/08/2020 9:23 AM MEAT APPRENTICE) Analysis Performed At [facility] logist Time Signature Hemoglobin A1C 12.3 (H) 0 - 5.6 % LABDE SCAN (External) Specimen (Source) Anatomical Collection Method Collection Time Re ceived Time Location / / Volume Laterality Blood specimen 07/08/2020 9:23 AM (specimen) MEAT APPRENTICE Narrative [facility] - 07/09/2020 11:03 AM MEAT APPRENTICE Verified by Andrade Barajas on 07/09/2020. Patient Reported LAB - BLOOD ORDERABLES Performing Organization Address [facility] Phon e Number [facility] LABDE SCAN (ABNORMAL) Basic metabolic panel (07/08/2020 9:23 AM MEAT APPRENTICE) Analysis Performed At [facility] logist Time Signature Calcium 10.1 8.4 [...] Laterality Blood specimen 07/08/2020 9:23 AM (specimen) MEAT APPRENTICE Narrative [facility] - 07/09/2020 11:02 AM MEAT APPRENTICE Verified by Andrade Barajas on 07/09/2020. Patient Reported LAB - BLOOD ORDERABLES Performing Organization Address City/[facility]/ZIP Code Phon e Number [facility] LABDE SCAN (ABNORMAL) CBC with platelets differential (07/08/2020 9:23 AM MEAT APPRENTICE) [facility] gist Method Time Signature WBC Count [...] Laterality Blood specimen 07/08/2020 9:23 AM (specimen) MEAT APPRENTICE Narrative [facility] - 07/09/2020 10:52 AM MEAT APPRENTICE Verified by Praful Huff on 2019. Patient Reported LAB - BLOOD ORDERABLES Performing Organization Address City/State/ZIP Code Phon e Number [facility] LABDE SCAN documented in this encounter Visit Diagnoses Not on filedocumented in this encounter Care Teams Licensed Audiologist Relationship Specialty Start Date End Date Momo Forbes PCP - General Family Practice 01/02/14 [facility] [address] [place] [address] Joseph Quintana, Assigned Nephrology 03/29/21 MD Provider [address] [place] [address] [address] [place], [place] [address] documented as of this encounter
--- OUTSIDE RECORDS SUMMARY | 2022-05-24 11:46 | XMS_ITS | Encounter Summary ---
:1950 Author Organization [place] Address [facility] 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 Per Dr. Presleynotblaze from visit in 10/09/19: # Diabetes: Poorly controlled (HbA1c >9%) Last HbA1c: 13.7%. - Management as per primary care. - Recommended all blood sugars stay below 200, with fasting between 90 and 130. ?? Latrell states that he lost his blood sugar meter but he can pick one up at [facility]. He asked how often he should [...] level. Latrell states he returns to 08/08. EATION CLERK Telephone Encounter - Cristy Chen LPN - 07/08/2020 3:39 PM CST DATE: 07/08/2020 TIME OF RECEIPT FROM LAB: 3:30 PM LAB TEST: Glucose LAB VALUE: 407 RESULTS GIVEN WITH READ-BACK TO (PROVIDER): Barbie Ugalde RN TIME LAB VALUE REPORTED TO PROVIDER: 3:39 PM EATION CLERK documented in this encounter Plan of Treatment Not on filedocumented as of this encounter Visit Diagnoses Not on filedocumented in this encounter Care Teams Salt Washer Relationship Specialty Start Date End Date Momo Forbes PCP - General Family Practice 01/02/14 [facility] [address] [place] [address] documented as of this encounter
--- OUTSIDE RECORDS SUMMARY | 2022-05-24 11:46 | XMS_ITS | Encounter Summary ---
:1950 Author Organization [place] Address [facility] [place] [address] Care Team Providers Name Role Phone Momo Forbes A Primary Care Provider Reason for Visit Reason Onset Date Comments Transplant 02/03/2021 spoke w pt and donna vallejoed annual neph appt on 03/05/21 Encounter Details Date Type Department Care Team Description 02/03/2021 Telephone [facility] Barbie Ugaldelanlynda (spoke w pt Transplant Clinic BOGDAN Nam and confirmed annual [facility] neph appt on 03/05/21) [place] [address] Social History Tobacco Use Types [...] filedocumented in this encounter Care Teams Film Printer Relationship Specialty Start Date End Date Momo Forbes PCP - General Family Practice 01/02/14 [facility] [address] [place] [address] documented as of this encounter
--- OUTSIDE RECORDS SUMMARY | 2022-05-24 11:46 | XMS_ITS | Encounter Summary ---
:1950 Author Organization [place] Address [facility] [address] Care Team Providers Name Role Phone Momo Forbes Primary Care Provider Joseph Quintana MD Unavailable Encounter Details Date Type Department Care Team Description 01/07/2021 External Order [facility] Outside, Provider Results Transplant Clinic [address] [place] [phone] Social History Tobacco Use Types Packs/Day [...] filedocumented in this encounter Care Teams Executive Coordinator Relationship Specialty Start Date End Date Momo Forbes PCP - General Family Practice 01/02/14 [facility] [address] [place] [address] Joseph Quintana, Assigned Nephrology 03/29/21 MD Provider [address] [place] [address] [address] [place] [address] documented as of this encounter
--- OUTSIDE RECORDS SUMMARY | 2022-05-24 11:46 | XMS_ITS | Encounter Summary ---
:1950 Author Organization [place] Address [facility] [place] [address] Care Team Providers Name Role Phone Momo Forbes A Primary Care Provider Reason for Visit Reason Onset Date Comments Transplant Lab 05/28/2020 Encounter Details Date Type Department Care Team Description 05/28/2020 Telephone [facility] Barbie Ugalde Tra nsplant Lab Transplant Clinic BOGDAN Nam [address] [place] [phone] Social History Tobacco Use Types Packs/Day [...] Orderssent for repeat labs. Telephone Encounter - aBrbie Ugalde RN - 05/30/2020 1:25 PM CDT [...] mg/dL on 05/26/20 at 1025 collected at [facility] [phone] (Phone) CBC appears as expected Missing BMP [...] on filedocumented in this encounter Care Teams Chairlift Operator Relationship Specialty Start Date End Date Momo Forbes PCP - General Family Practice 01/02/14 [facility] [address] [place] [address] documented as of this encounter
--- OUTSIDE RECORDS SUMMARY | 2022-05-24 11:46 | XMS_ITS | Encounter Summary ---
:1950 Author Organization [place] Address [facility] [place] [address] Care Team Providers Name Role Phone Momo Forbes Primary Care Provider Joseph Quintana MD Unavailable Encounter Details Date Type Department Care Team Description 08/08/2020 External Order M [facility] Outside, Provider Results Transplant Clinic [address] [place] [phone] Social History Tobacco Use Types Packs/Day [...] 08/08/2020 11:43 Results f or this AM MANAGER BUSINESS BANKING procedure are i n the results section. TACROLIMUS BY TANDEM Routine 08/08/2020 11:34 Res ults for this MASS SPECTROMETRY AM MANAGER BUSINESS BANKING procedure are in the results section. LIPID PROFILE Routine 08/08/2020 11:34 Results fo r this AM MANAGER BUSINESS BANKING procedure are i n the results section. ALT Routine 08/08/2020 11:34 Results for this AM MANAGER BUSINESS BANKING procedure are i n the results section. BASIC METABOLIC PANEL Routine 08/08/2020 11:34 Re sults for this AM MANAGER BUSINESS BANKING procedure are i n the results section. documented in this encounter Results (ABNORMAL) Hemoglobin A1c (08/08/2020 11:43 AM MANAGER BUSINESS BANKING) Analysis Performed At Patho logist Time Signature Hemoglobin A1C 10.2 (H) <=6.9 % LABDE SCAN (External) Specimen (Source) Anatomical Collection Method Collection Time Re ceived Time Location / / Volume Laterality Blood specimen 08/08/2020 11:43 (specimen) AM MANAGER BUSINESS BANKING Narrative [facility] - 08/11/2020 1:28 PM MANAGER BUSINESS BANKING Verified by Praful Huff on 2019. Patient Reported LAB - BLOOD ORDERABLES Performing Organization Address City/State/ZIP Code Phon e Number [facility] LABDE SCAN Tacrolimus level (08/08/2020 11:34 AM MANAGER BUSINESS BANKING) athologist Signature Tacrolimus(FK-5 11.7 See scan LABDE SCAN 06) (External) ng/mL Specimen (Source) Anatomical Collection Method Collection Time Re ceived Time Location / / Volume Laterality Blood specimen 08/08/2020 11:34 (specimen) AM MANAGER BUSINESS BANKING Narrative [facility] - 08/11/2020 1:28 PM MANAGER BUSINESS BANKING Verified by Praful Huff on 2019. Patient Reported LAB - BLOOD ORDERABLES Performing Organization Address City/State/ZIP Code Phon e Number [facility] LABDE SCAN (ABNORMAL) Lipid Profile (08/08/2020 11:34 AM MANAGER BUSINESS BANKING) [facility] gist Method Time Signature Cholesterol 79 (L) 90 - 200 LABDE SCAN (External) MG/DL Triglycerides 86 40 - 197 LABDE SCAN (External) MG/DL LDL-Cholesterol 29 <100 mg/dL LABDE SCAN (External) HDL Cholesterol 33 (L) >=40 mg/dL LABDE SCAN (External) Specimen (Source) Anatomical Collection Method Collection Time Re ceived Time Location / / Volume Laterality Blood specimen 08/08/2020 11:34 (specimen) AM MANAGER BUSINESS BANKING Narrative [facility]FT - 08/11/2020 1:28 PM MANAGER BUSINESS BANKING Verified by Praful Huff on 2019. Patient Reported LAB - BLOOD ORDERABLES Performing Organization Address City/State/ZIP Code Phon e Number [facility] LABDE SCAN ALT (08/08/2020 11:34 AM MANAGER BUSINESS BANKING) P athologist Signature ALT (External) 8 4 - 50 U/L LABDE SCAN Specimen (Source) Anatomical Collection Method Collection Time Re ceived Time Location / / Volume Laterality Blood specimen 08/08/2020 11:34 (specimen) AM MANAGER BUSINESS BANKING Narrative [facility]FT - 08/11/2020 1:28 PM MANAGER BUSINESS BANKING Verified by Praful Huff on 2019. Patient Reported LAB - BLOOD ORDERABLES Performing Organization Address City/State/ZIP Code Phon e Number [facility] LABDE SCAN (ABNORMAL) Basic metabolic panel (08/08/2020 11:34 AM MANAGER BUSINESS BANKING) P athologist Signature Glucose 119 (H) 60 [...] Laterality Blood specimen 08/08/2020 11:34 (specimen) AM MANAGER BUSINESS BANKING Narrative [facility]FT - 08/11/2020 1:28 PM MANAGER BUSINESS BANKING Verified by Praful Huff on 2019. Patient Reported LAB - BLOOD ORDERABLES Performing Organization Address City/State/ZIP Code Phon e Number [facility] LABDE SCAN documented in this encounter Visit Diagnoses Not on filedocumented in this encounter Care Teams Material Handler Floorperson Relationship Specialty Start Date End Date Momo Forbes PCP - General Family Practice 01/02/[address] [address] Joseph Quintana, Assigned Nephrology 03/29/21 MD Provider [address] [place] [address] documented as of this encounter
--- OUTSIDE RECORDS SUMMARY | 2022-05-24 11:47 | XMS_ITS | Encounter Summary ---
:1950 Author Organization [place] Address [address] [place] [address]. [place] [address] Care Team Providers Name Role Phone Momo Forbes Primary Care Provider Encounter Details Date Type Department Care Team Description 05/17/2018 Orders Only [facility] Alana Calderon Afterc are following Transplant supervisor hard candy organ transplant [address] [place] [address] (Primary Dx) [place] [address] Social History Tobacco Use Types [...] rimary documented in this encounter Care Teams Machine Icer Relationship Specialty Start Date End Date Momo Forbes PCP - General Family Practice 01/02/14 [facility] [address] [place] [address] documented as of this encounter
--- OUTSIDE RECORDS SUMMARY | 2022-05-24 11:47 | XMS_ITS | Encounter Summary ---
:1950 Author Organization [place] Address [facility] [place] [address] Care Team Providers Name Role Phone Momo Forbes Primary Care Provider Reason for Visit Reason Onset Date Comments Refill Request 05/07/2020 Mycophenplate and Pr ograf Encounter Details Date Type Department Care Team Description 05/07/2020 Refill M [facility] Mariano, Joseph Refill R equest Nephrology Clinic MD Herminio (Mycophenplate and [address] Prograf) [address] [place] [phone] Social History Tobacco Use Types Packs/Day Years [...] transplant documented in this encounter Care Teams Hog Stomach Preparer Relationship Specialty Start Date End Date Momo Forbes PCP - General Family Practice 01/02/14 [facility] [address] [place] [address] documented as of this encounter
--- OUTSIDE RECORDS SUMMARY | 2022-05-24 11:47 | XMS_ITS | Encounter Summary ---
:1950 Author Organization [place] Address [address] [place] [address] Care Team Providers Name Role Phone ForbesMomo prakash A Primary Care Provider Reason for Visit Reason Comments RECHECK annual Follow up Kidney [place] Encounter Details Date Type Department Care Team Description 10/17/2018 Office Visit [facility] Shiva Presley MD [facility] [address] [facility] [address] [place] [address] Type 2 diabetes mellitus with other spec ified complication, with long-term current use of insulin (H) (Primary Dx); Nephrology Clinic [facility] Kidney/Pancreas Recipient Kidney replaced by transplant; [place] Aftercare following organ tr ansplant; [address] Immunosupp ression (H); SE HTN, kidney transplant relat ed; [place], [place] Severe obesi ty in adult, BMI [...] Comments Blood Pressure 162/77 10/17/2018 1:54 PM TREATING AND PUMPING SUPERVISOR Pulse 60 10/17/2018 1:54 PM TREATING AND PUMPING SUPERVISOR Temperature 36.5 ??C (97.7 ??F) 10/17/2018 1:54 PM TREATING AND PUMPING SUPERVISOR Respiratory Rate - - Oxygen Saturation 94% 10/17/2018 1:54 PM TREATING AND PUMPING SUPERVISOR Inhaled Oxygen Concentration - - Weight 133.7 kg (294 lb 12.8 oz) 10/17/2018 1:54 PM TREATING AND PUMPING SUPERVISOR Height - - Body Mass Index 39.98 10/10/2017 2:25 PM TREATING AND PUMPING SUPERVISOR documented in this encounter Progress Notes [...] then 50%0. Also offered to refer to washroom operator. # Mineral Bone Disorder: - Secondary renal [...] PREVIOUSLY REPORTED 1999 MPACID 1.39 MPAG 80.2 TING AND PUMPING SUPERVISOR documented in this encounter Nursing Notes [...] kg (294 lb 12.8 oz). Martina Boyle TING AND PUMPING SUPERVISOR documented in this encounter Plan of [...] >40 documented in this encounter Care Teams Ergonomic Specialist Relationship Specialty Start Date End Date Momo Forbes PCP - General [facility] Practice 01/02/14 [facility] [address] [place] [address] documented as of this encounter
--- OUTSIDE RECORDS SUMMARY | 2022-05-24 11:47 | XMS_ITS | Encounter Summary ---
:1950 Author Organization [place] Address [address] [place] [address] Care Team Providers Name Role Phone Momo Forbes Primary Care Provider Encounter Details Date Type Department Care Team Description 05/15/2018 Orders Only M [facility] Loy Morales MD [facility] [address] [facility] [address] [place] [address] [place] [address] 5-[address]3 [phone] Social History Tobacco Use Types Packs/Day Years [...] (ABNORMAL) Tacrolimus level (05/15/2018 2:13 PM CDT) [facility] gist Method Time Signature Tacrolimus Not Provided 05/18/2018 [facility] Last Dose 7:24 AM CDT [facility] Tacrolimus 3.4 (L) 5.0 - 05/18/2018 [facility] Level 15.0 ug/L 7:24 AM CDT [facility] Comment: Tacrolimus [...] its performa nce characteristics determined by the [facility], [...] - BLOOD ORDERABLES Performing Organization Address [facility]/ZIP Code Phon e Number [facility] [address] Cyclosporine (05/15/2018 2:13 PM CDT) Component Value Ref Test Analysis Performed At [facility] [place] Method Time Signature Cyclosporine CANCELLED BY 05/17/2018 [facility] Dose BOGDAN KOLB 1:00 PM CDT [facility] ETCHEVERRY ON [facility] 05/17/18 AT CAMPUS 1300 BY [place] Comment: CORRECTED ON 05/17 AT 1300: PRE VIOUSLY REPORTED [id number] Cyclosporine Level CANCELLED BY RN 50 - 400 05/17/2018 1:00 [facility] ug/L PM CDT [facility] ETCHEVERRY ON [facility] 05/17/18 AT 1300 BY MO Comment: CORRECTED ON 05/17 AT 1300: PRE VIOUSLY REPORTED <25 Specimen Anatomical Collection Method Collection Time Receive d Time (Source) Location / / Volume Laterality 05/15/2018 2:13 PM 8 9:59 CDT AM CDT Orlando Richey MD LAB - BLOOD ORDERABLES Performing Organization Address City/[facility]/ZIP Code Phon e Number [address] documented in this encounter Visit Diagnoses Not on filedocumented in this encounter Care Teams Mine Engineering Superintendent Relationship Specialty Start Date End Date Momo Forbes PCP - General Family Practice 01/02/14 [facility] [address] [place] [address] documented as of this encounter
--- OUTSIDE RECORDS SUMMARY | 2022-05-24 11:47 | XMS_ITS | Encounter Summary ---
:1950 Author Organization [place] Address [address] [place] [address]. [place] [address] Care Team Providers Name Role Phone Momo [...] on filedocumented in this encounter Care Teams Wildlife Ecology Professor Relationship Specialty Start Date End Date Momo Forbes PCP - General Family Practice 01/02/14 [facility] [address] [place] [address] documented as of this encounter
--- OUTSIDE RECORDS SUMMARY | 2022-05-24 11:47 | XMS_ITS | Encounter Summary ---
:1950 Author Organization [place] Address [address] [place] [address]. [place] [address] Care Team Providers Name Role Phone Momo [...] on filedocumented in this encounter Care Teams Order Picker Relationship Specialty Start Date End Date Momo Forbes PCP - General Family Practice 01/02/14 [facility] [address] [place] [address] documented as of this encounter
--- OUTSIDE RECORDS SUMMARY | 2022-05-24 11:47 | XMS_ITS | Encounter Summary ---
:1950 Author Organization [place] Address [facility] [place] [address] Care Team Providers Name Role Phone Momo Forbes Primary Care Provider Joseph Quintana MD Unavailable Encounter Details Date Type Department Care Team Description 05/16/2019 External Order [facility] Nurse, Txc Afterca re following organ transplant; Results Transplant Clinic Kidney replaced by transplan t; [address] [place] [address] Encounter for long-term [place] [address] Social History Tobacco Use Types [...] CDT) Analysis Performed At Patho [facility] Time Signature Sodium 136 135 - 145 [...] Estimated >60 >60 LABDE SCAN (if ml/min/1.7 Turkmen) 3m2 (External) GFR Estimated 56 (L) >60 [...] CDT) Analysis Performed At Patho [facility] Time Signature Protein Random 41 (H) <=14 [...] edication documented in this encounter Care Teams Care Transition Coordinator Relationship Specialty Start Date End Date Momo Forbes PCP - General Family Practice 01/02/14 [facility] [address] [place] [address] Joseph Quintana, Assigned Nephrology 03/29/21 Provider 717 [facility] 353 [facility] [address] [place] [address] documented as of this encounter
--- OUTSIDE RECORDS SUMMARY | 2022-05-24 11:47 | XMS_ITS | Encounter Summary ---
:1950 Author Organization [place] Address [address] [facility] [place] [address] Care Team Providers Name Role Phone Momo Forbes A Primary Care Provider Reason for Visit Reason Onset Date Comments Appointment 08/24/2018 Encounter Details Date Type Department Care Team Description 08/24/2018 Telephone [facility] Nephrology Romi Garcia, RN Appointment [facility] [phone] ([facility]) [address] [place] [address] [phone] Social History Tobacco Use Types Packs/Day [...] patient to call back. Romi Rodriguez RN 7 INTERFACE DEVELOPER Telephone Encounter - Romi Rodriguez RN - 08/24/2018 1:54 PM CST Left voicemail for patient to call back (follow up from last transplant appointment). Romi Rodriguez, RN 7 INTERFACE DEVELOPER documented in this encounter Plan of Treatment Not on filedocumented as of this encounter Visit Diagnoses Not on filedocumented in this encounter Care Teams Aquatics Specialist Relationship Specialty Start Date End Date Momo Forbes PCP - General Family Practice 01/02/[address] [address] documented as of this encounter
--- OUTSIDE RECORDS SUMMARY | 2022-05-24 11:47 | XMS_ITS | Encounter Summary ---
:1950 Author Organization [place] Address [facility] [place] [address] Care Team Providers Name Role Phone Forbes, Ton Primary Care Provider Reason for Visit Reason Onset Date Comments Transplant Lab 05/16/2019 Encounter Details Date Type Department Care Team Description 05/16/2019 Telephone [facility] Sudhir Fields Trans plant Lab Transplant Clinic Amanda Fletcher RN [address] [phone] Social History Tobacco Use Types Packs/Day [...] CDT Provider Call: Transplant Lab/Orders Route to FOOT AND ANKLE SURGEON Post Transplant Days: 1929 When patient is less than 60 days post-transplant, route high priority Reason for Call: updated lab order faxed Liver patients reporting abnormal lab results: Route to RN and Page Document lab facility information when provider is calling about annual lab orders. Delete facility wildcards when not needed. Facility Name: [facility] Location: [place], [place] Outside Facility Callback needed? 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
--- OUTSIDE RECORDS SUMMARY | 2022-05-24 11:47 | XMS_ITS | Encounter Summary ---
:1950 Author Organization [place] Address [address] [place] [address]. [place] [address] Care Team Providers Name Role Phone Momo [...] on filedocumented in this encounter Care Teams Utilization Management Um Nurse Relationship Specialty Start Date End Date Momo Forbes PCP - General Family Practice 01/02/14 [facility] [address] [place] [address] documented as of this encounter
--- OUTSIDE RECORDS SUMMARY | 2022-05-24 11:47 | XMS_ITS | Encounter Summary ---
:1950 Author Organization [place] Address [facility] [place] [address] Care Team Providers Name Role Phone Momo Forbes Primary Care Provider Joseph Quintana MD Unavailable Encounter Details Date Type Department Care Team Description 05/26/2020 External Order [facility] Outside, Provider Results Transplant Clinic [address] [place] [phone] Social History Tobacco Use Types Packs/Day [...] with platelets differential (05/26/2020 10:25 AM CDT) [facility] Method Time Signature WBC Count 4.49 [...] on filedocumented in this encounter Care Teams International Logistics Coordinator Relationship Specialty Start Date End Date Momo Forbes PCP - General Family Practice 01/02/14 [facility] [address] [place] [address] Joseph Quintana, Assigned Nephrology 03/29/21 MD Provider 717 [facility] 353 [facility] [address] [place], [place] [address] documented as of this encounter
--- OUTSIDE RECORDS SUMMARY | 2022-05-24 11:47 | XMS_ITS | Encounter Summary ---
:1950 Author Organization [place] Address [address] [facility] [place] [address] Care Team Providers Name Role Phone Forbes, Momo He Primary Care Provider Reason for Visit Reason Onset Date Comments Transplant 10/18/2018 post transplant lucía sampson Encounter Details Date Type Department Care Team Description 10/18/2018 Telephone [facility] Nazia Jacobson Transplant (post Transplant Clinic BOGDAN Hicksrecreation director scheduling) [address] [place] [phone] Social History Tobacco Use Types Packs/Day [...] another detailed message with weight managements number. TECHNICIAN Telephone Encounter - Maribel Plunkett - 10/18/2018 9:32 AM CST I attempted to contact pt to give him the number for weight management, as they want to talk directly to the patient when scheduling initial appointment, and reached his VM. I LVM asking him to return my call. TECHNICIAN documented in this encounter Plan of Treatment Not on filedocumented as of this encounter Visit Diagnoses Not on filedocumented in this encounter Care Teams Health Plan Manager Relationship Specialty Start Date End Date Momo Forbes PCP - General Family Practice 01/02/14 [facility] [address] [place] [address] documented as of this encounter
--- OUTSIDE RECORDS SUMMARY | 2022-05-24 11:47 | XMS_ITS | Encounter Summary ---
:1950 Author Organization [place] Address [facility] [place] [address] Care Team Providers Name Role Phone Momo Forbes A Primary Care Provider Reason for Visit Reason Onset Date Comments Transplant Lab 01/29/2020 overdue labs Encounter Details Date Type Department Care Team Description 01/29/2020 Telephone [facility] Barbie Ugalde Tra nsplant Lab Transplant Clinic BOGDAN Nam (overdue labs) [address] [place] [phone] Social History Tobacco Use Types Packs/Day [...] a kit for blood work sent to [facility] as requested. Explained kits are no longer being used for drug levels but new orders could be sent to lab if needed. [facility] [phone] (Phone) [facility] has annual order on file sent [...] on filedocumented in this encounter Care Teams Licensing Representative Relationship Specialty Start Date End Date Momo Forbes PCP - General Family Practice 01/02/14 [facility] [address] [place] [address] documented as of this encounter
--- OUTSIDE RECORDS SUMMARY | 2022-05-24 11:47 | XMS_ITS | Encounter Summary ---
:1950 Author Organization [place] Address [address] [place] [address]. [place] [address] Care Team Providers Name Role Phone Momo Forbes Primary Care Provider Reason for Visit Reason Onset Date Comments Refill Request 01/17/2019 Encounter Details Date Type Department Care Team Description 01/17/[address] [facility] Joseph Quinatna MD Refill Request Transplant Clinic [address] [place] [phone] [place] [address] (Wo rk) Social History Tobacco [...] transplant documented in this encounter Care Teams Cable Mock Up Assembler Relationship Specialty Start Date End Date Momo Forbes PCP - General Family Practice 01/02/14 [facility] [address] [place] [address] documented as of this encounter
--- OUTSIDE RECORDS SUMMARY | 2022-05-24 11:47 | XMS_ITS | Encounter Summary ---
:1950 Author Organization [place] Address [facility] [place] [address] Care Team Providers Name Role Phone Momo Forbes Primary Care Provider Joseph Quintana MD Unavailable Encounter Details Date Type Department Care Team Description 09/04/2018 External Order Results [facility] Nurse, [facility] Transplant Clinic [address] [place] [phone] Social History Tobacco Use Types [...] 2:50 PM R esults for this DIFFERENTIAL [employer] GLAZER procedure are i n the results section. BASIC METABOLIC PANEL Routine 09/04/2018 2:50 PM Results for this [employer] procedure are i n the results section. PROTEIN RANDOM URINE Routine 09/04/2018 2:49 PM R esults for this [employer] procedure are i n the results section. documented in this encounter Results (ABNORMAL) CBC with platelets differential (09/04/2018 2:50 PM [employer]ZER) [facility] gist Method Time Signature WBC Count [...] Laterality Blood specimen 09/04/2018 2:50 PM (specimen) [employer] Narrative JESSICA THIBODEAUX - 09/06/2018 9:13 AM [employer] Verified by Cassie Florian on 09/06/2018. Patient Reported LAB - BLOOD ORDERABLES Performing Organization Address City/State/ZIP Code Phon e Number [facility] PFT LABDE SCAN (ABNORMAL) Basic metabolic panel (09/04/2018 2:50 PM [employer]ZER) Analysis Performed At Patho logist Time Signature [...] 49 (L) >60 LABDE SCAN (if ml/min/1.7 Bhutanese) 3m2 (External) GFR Estimated 41 (L) >60 LABDE SCAN (External) ml/min/1.7 3m2 Specimen (Source) Anatomical Collection Method Collection Time Re ceived Time Location / / Volume Laterality Blood specimen 09/04/2018 2:50 PM (specimen) [employer] Narrative JESSICA PFT - 09/06/2018 9:13 AM [employer] Verified by Cassie Florian on 09/06/2018. Patient Reported LAB - BLOOD ORDERABLES Performing Organization Address City/State/ZIP Code Phon e Number [facility] LABDE SCAN (ABNORMAL) Protein random urine with Creat Ratio (09/04/2018 2:49 PM [employer]) P athologist Signature Protein Random 72 (H) 1 - 14 LABDE SCAN Urine mg/dL (External) Creatinine 104.0 63.0 - LABDE SCAN Urine mg/dL 166.0 (External) mg/dL Protein Total 0.7 (H) <0.2 LABDE SCAN Ur per Cr (External) Specimen (Source) Anatomical Collection Method Collection Time Re ceived Time Location / / Volume Laterality Urine specimen 09/04/2018 2:49 PM (specimen) [employer] Narrative MARLENEE PFT - 09/06/2018 9:13 AM [employer] Verified by Cassie Florian on 09/06/2018. Patient Reported LAB - URINE ORDERABLES Performing Organization Address City/State/ZIP Code Phon e Number [facility] PFT LABDE SCAN documented in this encounter Visit Diagnoses Not on filedocumented in this encounter Care Teams Imposer Relationship Specialty Start Date End Date Momo Forbes PCP - General Family Practice 01/02/14 [facility] [address] [place] [address] Joseph Quintana, Assigned Nephrology 03/29/21 MD Provider 717 [facility] 353 [facility] [address] [place] [address] documented as of this encounter
--- OUTSIDE RECORDS SUMMARY | 2022-05-24 11:47 | XMS_ITS | Encounter Summary ---
:1950 Author Organization [place] Address [address] [place] [address] Care Team Providers Name Role Phone Momo Forbes Primary Care Provider Encounter Details Date Type Department Care Team Description 05/16/2019 Orders Only [facility] Loy Morales Aft ercare following organ transplant; [facility] Kidney replaced by transplant; Laboratory [address] [facility] Encounter for long-term curr ent use of medication [address] [place] [address] [phone] (Wo rk) Social History Tobacco Use Types [...] (ABNORMAL) Tacrolimus level (05/16/2019 3:43 PM CDT) [facility] gist Method Time Signature Tacrolimus Last 05/1605/18/2019 [facility] Dose 1230AM 11:28 AM CDT [facility] Tacrolimus 4.6 (L) 5.0 - 05/18/2019 [facility] 15.0 ug/L 4:11 PM CDT [facility] Comment: Tacrolimus Reference [...] Phon e Number [facility] [address] documented in this encounter Visit Diagnoses Diagnosis Aftercare following organ transplant Kidney replaced by transplant Encounter for long-term current use of m edication documented in this encounter Care Teams Assembler Body Relationship Specialty Start Date End Date Momo Forbes PCP - General Family Practice 01/02/14 [facility] [address] [place] [address] documented as of this encounter
--- OUTSIDE RECORDS SUMMARY | 2022-05-24 11:47 | XMS_ITS | Encounter Summary ---
:1950 Author Organization [place] Address [facility] [place] [address] Care Team Providers Name Role Phone Forbes, Ton Primary Care Provider Reason for Visit Reason Onset Date Comments Kidney Transplant 05/20/2019 Encounter Details Date Type Department Care Team Description 05/20/2019 Telephone [facility] Estefania Nguyen Transplant Transplant Clinic Amanda Fletcher RN [address] [place] [phone] Social History Tobacco Use Types Packs/Day [...] not charted as 12 hour trough. ?? Plan/WELL SERVICE FLOOR WORKER task: ?? Please confirm timing of lab draw. If this was not a 12 hour level, please repeat labs in May and ensure 12 hour trough level with lab draw. Enter lab orders if needed Telephone Encounter - Amanda Nguyen RN - 05/20/2019 5:38 PM CDT Issue: Tac 4.6 - however this is not charted as 12 hour trough. Plan/WELL SERVICE FLOOR WORKER task: Please confirm timing of lab draw. If this was not a 12 hour level, please repeat labs in May and ensure 12 hour trough level with lab draw. Enter lab orders if needed. documented in this encounter Plan of Treatment Not on filedocumented as of this encounter Visit Diagnoses Not on filedocumented in this encounter Care Teams Sex Crimes Detective Relationship Specialty Start Date End Date Momo Forbes PCP - General Family Practice 01/02/14 [facility] [address] [place] [address] documented as of this encounter
--- OUTSIDE RECORDS SUMMARY | 2022-05-24 11:47 | XMS_ITS | Encounter Summary ---
:1950 Author Organization [place] Address [address] [facility] [place] [address] Care Team Providers Name Role Phone Momo Forbes A Primary Care Provider Reason for Visit Reason Onset Date Comments Refill Request 10/25/2018 Encounter Details Date Type Department Care Team Description 10/25/2018 Refill [facility] Joseph Quintana MD Refill Request Transplant Clinic [address] [place] [address] [phone] [place] [address] (Wo rk) Social History Tobacco [...] Marianne Urias RN - 10/26/2018 9:04 AM DIESEL POWER MECHANIC ISSUE: Refill request for MMF 03/2019 appt [...] to call if further questions or concerns. EL POWER MECHANIC documented in this encounter Plan of Treatment Not on filedocumented as of this encounter Visit Diagnoses Diagnosis Kidney transplanted Kidney replaced by transplant documented in this encounter Care Teams Reject Opener Relationship Specialty Start Date End Date Momo Forbes PCP - General Family Practice 01/02/14 [facility] [address] [place] [address] documented as of this encounter
--- OUTSIDE RECORDS SUMMARY | 2022-05-24 11:47 | XMS_ITS | Encounter Summary ---
:1950 Author Organization [place] Address [address] [place] [address] Care Team Providers Name Role Phone Forbes, Ton Primary Care Provider Reason for Visit Reason Comments RECHECK Post kid tx f/u Encounter Details Date Type Department Care Team Description 10/09[facility]2019 [facility] [address] [facility] [address] [place] [address] Kidney transplanted (Primary Dx); Nephrology Clinic , Kidney/Pancreas Recipient Need for influenza vaccination; [place] HTN, kidney transplant relat ed; [address] [facility] Immunosupp ression (H); SE Skin cancer screening; [place], [place] Hypovitamino sis D [phone] Social History [...] Comments Blood Pressure 169/76 10/09/2019 2:35 PM FRYLINE ATTENDANT Pulse 67 10/09/2019 2:35 PM FRYLINE ATTENDANT Temperature - - Respiratory Rate - - Oxygen Saturation 95% 10/09/2019 2:35 PM FRYLINE ATTENDANT Inhaled Oxygen Concentration - - Weight 132.5 kg (292 lb 1.6 oz) 10/09/2019 2:35 PM FRYLINE ATTENDANT Height - - Body Mass Index 39.62 10/10/2017 2:25 PM FRYLINE ATTENDANT documented in this encounter Progress Notes Shiva [...] being entered into the official medical record. INE ATTENDANT documented in this encounter Nursing Notes Josseline Recinos RN - 10/09/2019 2:45 PM CST Diego Sosa Siricyndie was seen today in clinic by this instructional writer. Medications, lab orders, lab frequency,and necessary follow up discussed with patient. Patient was provided with a copy of the current lab letter. Patient voiced understanding and agreement of education and plan. Josseline Recinos RN INE ATTENDANT Jeanette Finley CMA - 10/09/2019 2:45 PM CST Chief Complaint Patient presents with ??? RECHECK Post kid tx f/u Blood pressure (!) 169/76, pulse 67, weight 132.5 kg (292 lb 1.6 oz), SpO2 95 %. Jeanette Finley CMA INE ATTENDANT documented in this encounter Plan of [...] deficiency documented in this encounter Care Teams Process Development Engineer Relationship Specialty Start Date End Date Momo Forbes PCP - General Family Practice 01/02/14 [facility] [address] [place] [address] documented as of this encounter
--- OUTSIDE RECORDS SUMMARY | 2022-05-24 11:47 | XMS_ITS | Encounter Summary ---
:1950 Author Organization [place] Address [address] [place] [address]. [place] [address] Care Team Providers Name Role Phone Momo Forbes Primary Care Provider Reason for Visit Reason Onset Date Comments Erroneous encounter-disregard 05/17/2018 Encounter Details Date Type Department Care Team Description 05/17/[address] [facility] [place], Erroneous Transplant Clinic BOGDAN Lopes encounter-disregard [address] [place] [phone] Social History Tobacco Use Types Packs/Day [...] filedocumented in this encounter Care Teams Assembly Machine Set Up Mechanic Relationship Specialty Start Date End Date Momo Forbes PCP - General Family Practice 01/02/14 [facility] [address] [place] [address] documented as of this encounter
--- OUTSIDE RECORDS SUMMARY | 2022-05-24 11:47 | XMS_ITS | Encounter Summary ---
:1950 Author Organization [place] Address [address] [place] [address]. [place] [address] Care Team Providers Name Role Phone Momo [...] on filedocumented in this encounter Care Teams Canteen Operator Relationship Specialty Start Date End Date Momo Forbes PCP - General Family Practice 01/02/14 [facility] [address] [place] [address] documented as of this encounter
--- OUTSIDE RECORDS SUMMARY | 2022-05-24 11:47 | XMS_ITS | Encounter Summary ---
:1950 Author Organization [place] Address [address] [place] [address]. [place] [address] Care Team Providers Name Role Phone Momo Forbes Primary Care Provider Reason for Visit Reason Onset Date Comments Refill Request 02/04/2020 prograf, mycophenola te Encounter Details Date Type Department Care Team Description 02/04/2020 Refill [facility], Joseph Refill R equest Transplant Clinic MD Herminio (prograf, [address] [facility] SE [address]17 [facility] mycophenolate) [facility] [address] [facility] 8198 [phone] [place] [address] (Wo rk) Social History Tobacco [...] documented in this encounter Care Teams Quarry Equipment Operator Relationship Specialty Start Date End Date Momo Forbes PCP - General Family Practice 01/02/14 [facility] [address] [place] [address] documented as of this encounter
--- OUTSIDE RECORDS SUMMARY | 2022-05-24 11:47 | XMS_ITS | Encounter Summary ---
:1950 Author Organization [place] Address [address] [place] [address]. [place] [address] Care Team Providers Name Role Phone Momo Forbes Primary Care Provider Encounter Details Date Type Department Care Team Description 09/26/2019 Medical Correspondence [facility] Scan, BLOOD GLUCOSE LOG Health Info Mgmt Non-Provider Srvcs [address] [place] [phone] Social History Tobacco Use Types Packs/Day [...] on filedocumented in this encounter Care Teams Newspaper Editor Relationship Specialty Start Date End Date Momo Forbes PCP - General Family Practice 01/02/14 [facility] [address] [place] [address] documented as of this encounter
--- OUTSIDE RECORDS SUMMARY | 2022-05-24 11:47 | XMS_ITS | Encounter Summary ---
:1950 Author Organization [place] Address [facility] [place] [address] Care Team Providers Name Role Phone Momo Forbes A Primary Care Provider Reason for Visit Reason Comments Clinic Care Coordination - Follow-up Encounter Details Date Type Department Care Team Description 10/25/2019 Care Coordination [facility] Sejal Rodriguez Care Nephrology Clinic BOGDAN Llanos Coordination - [place] [phone] Follow-up 9 [facility] (Work) [place] [address] Social History Tobacco Use Types [...] back (follow up BP). Romi Rodriguez RN BIRD FARMER Romi Rodriguez RN - 10/25/2019 10:15 AM [...] further questions or concerns. Romi Rodriguez, BOGDAN BIRD FARMER documented in this encounter Plan of Treatment Not on filedocumented as of this encounter Visit Diagnoses Not on filedocumented in this encounter Care Teams Trimmer Operator Relationship Specialty Start Date End Date Momo Forbes PCP - General Family Practice 01/02/14 [facility] [address] [place] [address] documented as of this encounter
--- OUTSIDE RECORDS SUMMARY | 2022-05-24 11:47 | XMS_ITS | Encounter Summary ---
:1950 Author Organization [place] Address [facility] [place] [address] Care Team Providers Name Role Phone Momo Forbes Primary Care Provider Reason for Visit Reason Onset Date Comments Refill Request 12/22/2018 prograf, mycophenola te (PT IS OUT OF MEDS) Encounter Details Date Type Department Care Team Description 12/22/2018 Refill [facility] Joseph Quintana R alenest (prograf, Transplant Clinic MD Herminio mycophenolate (PT IS OUT 909 [facility] SE 717 [facility] SE OF MEDS)) [facility] 353 [facility] 479 [phone] [place], [place] [phone] [facility] [phone] (Wo rk) Social History Tobacco Use Types [...] transplant documented in this encounter Care Teams Boat Designer Relationship Specialty Start Date End Date Momo Forbes PCP - General Family Practice 01/02/14 [facility] [address] [place] [address] documented as of this encounter
--- OUTSIDE RECORDS SUMMARY | 2022-05-24 11:47 | XMS_ITS | Encounter Summary ---
:1950 Author Organization [place] Address [address] [place] [address]. [place] [address] Care Team Providers Name Role Phone Momo [...] filedocumented in this encounter Care Teams Commercial Front Load Driver Relationship Specialty Start Date End Date Momo Forbes PCP - General Family Practice 01/02/14 [facility] [address] [place] [address] documented as of this encounter
--- OUTSIDE RECORDS SUMMARY | 2022-05-24 11:47 | XMS_ITS | Encounter Summary ---
:1950 Author Organization [place] Address [facility] [place] [address] Care Team Providers Name Role Phone Momo Forbes Primary Care Provider Joseph Quintana MD Unavailable Encounter Details Date Type Department Care Team Description 05/26/2020 External Order [facility] Outside, Provider Results Transplant Clinic [address] [place] [phone] Social History Tobacco Use Types Packs/Day [...] on filedocumented in this encounter Care Teams Email Marketing Processor Relationship Specialty Start Date End Date Momo Forbes PCP - General Family Practice 01/02/14 [facility] [address] [place] [address] Joseph Quintana, Assigned Nephrology 03/29/21 MD Provider 7 [facility] 353 [facility] [address] [place] [address] documented as of this encounter
--- OUTSIDE RECORDS SUMMARY | 2022-05-24 11:47 | XMS_ITS | Encounter Summary ---
:1950 Author Organization [place] Address [address] [place] [address]. [place] [address] Care Team Providers Name Role Phone Momo Forbes Primary Care Provider Encounter Details Date Type Department Care Team Description 09/25/2019 Medical Correspondence [facility] Scan, PATIENT BLOOD Health Info Mgmt Non-Provider GLUCOSE SIVAKUMAR ALLAN Srvcs [address] [place] [phone] Social History Tobacco Use Types Packs/Day [...] on filedocumented in this encounter Care Teams Denture Waxer Relationship Specialty Start Date End Date Momo Forbes PCP - General Family Practice 01/02/14 [facility] [address] [place] [address] documented as of this encounter
--- OUTSIDE RECORDS SUMMARY | 2022-05-24 11:47 | XMS_ITS | Encounter Summary ---
:1950 Author Organization [place] Address [address] [place] [address] Care Team Providers Name Role Phone ForbesMomo prakash A Primary Care Provider Reason for Visit Reason Onset Date Comments Transplant Lab 09/06/2018 Encounter Details Date Type Department Care Team Description 09/06/2018 Telephone [facility] Transplant Adonay, Transplant Lab Clinic BOGDAN Lopes [address] [place] [phone] Social History Tobacco Use Types Packs/Day [...] Marianne Urias RN - 09/12/2018 11:58 AM LARD MAKER Attempted to reach pt again regarding his labs, no answer. Left message for pt to return call. MAKER Telephone Encounter - Marianne Urias RN - 09/07/2018 1:30 PM LARD MAKER Attempted to reach pt again regarding labs, no answer. Left message for pt to return call. MAKER Telephone Encounter - Marianne Urias RN - 09/06/2018 12:59 PM LARD MAKER ISSUE: Creatinine 1.69, up from pt baseline [...] Left message for pt to return call. MAKER documented in this encounter Plan of Treatment Not on filedocumented as of this encounter Visit Diagnoses Not on filedocumented in this encounter Care Teams Project Inspector Relationship Specialty Start Date End Date Momo Forbes PCP - General Family Practice 01/02/14 [facility] [address] [place] [address] documented as of this encounter
--- OUTSIDE RECORDS SUMMARY | 2022-05-24 11:47 | XMS_ITS | Encounter Summary ---
:1950 Author Organization [place] Address [facility] [place] [address] Care Team Providers Name Role Phone ForbesMomo Primary Care Provider Reason for Visit Reason Comments Clinic Care Coordination - Follow-up Encounter Details Date Type Department Care Team Description 11/16/2019 Care Coordination [facility] Sejal Rodriguez Care Nephrology Clinic BOGDAN Llanos Coordination - [place] [phone] Follow-up [address] [place] [address] (Work) [place] [address] Social History Tobacco Use [...] filedocumented in this encounter Care Teams Supervisor Alum Plant Relationship Specialty Start Date End Date Momo Forbes PCP - General Family Practice 01/02/14 [facility] [address] [place] [address] documented as of this encounter
--- OUTSIDE RECORDS SUMMARY | 2022-05-24 11:47 | XMS_ITS | Encounter Summary ---
:1950 Author Organization [place] Address [address] [facility] [place] [address] Care Team Providers Name Role Phone Forbes, Momo He Primary Care Provider Reason for Referral Consultation - Closed Specialty Diagnoses / Procedures Referred By Contact Refer red To Contact Diagnoses Obesity Kidney transplanted Sot Other Services 1 [place] [address] Referral ID Status Reason Start Date Expiration Date Visits Requ ested Visits Authorized [id number] Closed 10/17/2018 10/17/2019 1 1 F CLERK SHELTER Reason for Visit Reason Comments Transplant Encounter Details Date Type Department Care Team Description 10/17/2018 Orders Only [facility] Marcelacaty Nazia Obesity (P rimary Dx); Transplant Clinic BOGDAN Hicks Kidney transplanted 9 [place] [address] Social History Tobacco Use Types [...] transplant documented in this encounter Care Teams Die Cleaner Relationship Specialty Start Date End Date Momo Forbes PCP - General Family Practice 01/02/14 [facility] [address] [place] [address] documented as of this encounter
--- OUTSIDE RECORDS SUMMARY | 2022-05-24 11:47 | XMS_ITS | Encounter Summary ---
:1950 Author Organization [place] Address [facility] [place] [address] Care Team Providers Name Role Phone Momo Forbes A Primary Care Provider Reason for Visit Reason Onset Date Comments Kidney Transplant 07/12/2019 Encounter Details Date Type Department Care Team Description 07/12/2019 Telephone [facility] Estefania Nguyen Transplant Transplant Clinic Amanda Fletcher RN [address] [place] [address] Social History Tobacco Use Types [...] left with instruction listed below. Order placed TRICAL PRODUCTS SALES ENGINEER Telephone Encounter - Amanda Nguyen RN - 07/12/2019 12:23 PM ELECTRICAL PRODUCTS SALES ENGINEER Clinic appt 07/17 at 4:45 Plan: Called patient to remind him of appt date/time. Asked that he complete labs prior to appt. PIER HAND task: Please send one time lab order to complete all tx labs within the next week. TRICAL PRODUCTS SALES ENGINEER documented in this encounter Plan of Treatment Not on filedocumented as of this encounter Visit Diagnoses Not on filedocumented in this encounter Care Teams Cook Soup Relationship Specialty Start Date End Date Momo Forbes PCP - General Family Practice 01/02/14 [facility] [address] [place] [address] documented as of this encounter
--- OUTSIDE RECORDS SUMMARY | 2022-05-24 11:47 | XMS_ITS | Encounter Summary ---
:1950 Author Organization [place] Address [facility] [place] [address] Care Team Providers Name Role Phone Momo Forbes Primary Care Provider Reason for Visit Reason Onset Date Comments Refill Request 03/18/2020 Mycophenolate and Pr ograf 1mg Encounter Details Date Type Department Care Team Description 03/18/2020 Refill [facility] Joseph Quintana Refill R equest Nephrology Clinic MD Herminio (Mycophenolate and [place] [address] [place] [address] SE Prograf 1mg) 909 [facility] 353 [facility] [address] [place], [place] [address] [phone] Social History Tobacco Use Types Packs/Day Years [...] documented in this encounter Care Teams Rn Neurosurgical Relationship Specialty Start Date End Date Momo Forbes PCP - General Family Practice 01/02/14 [facility] [address] [place] [address] documented as of this encounter
--- OUTSIDE RECORDS SUMMARY | 2022-05-24 11:47 | XMS_ITS | Encounter Summary ---
:1950 Author Organization [place] Address [facility] [place] [address] Care Team Providers Name Role Phone ForbesMomo santiago A Primary Care Provider Encounter Details Date Type Department Care Team Description 08/18/2018 Documentation Only [facility] Josseline Recinos, Transplant Clinic RN 909 [place] [address] Social History Tobacco Use Types [...] letter updated: 08/17/18 Lab orders faxed to: [facility] [phone] (Phone) Lab orders up to date in [facility]. NGUAL RESEARCH INTERVIEWER documented in this encounter Plan of Treatment Not on filedocumented as of this encounter Visit Diagnoses Not on filedocumented in this encounter Care Teams Mainframe Programmer Relationship Specialty Start Date End Date Momo Forbes PCP - General Family Practice 01/02/14 [facility] [address] [place] [address] documented as of this encounter
--- OUTSIDE RECORDS SUMMARY | 2022-05-24 11:47 | XMS_ITS | Encounter Summary ---
:1950 Author Organization [place] Address [facility] [place] [address] Care Team Providers Name Role Phone Momo Forbes Primary Care Provider Reason for Visit Reason Onset Date Comments Transplant Pharmacy Medication Review 01/10/2019 Encounter Details Date Type Department Care Team Description 01/10/2019 Telephone [facility] Meghan Mccormack, [facility] Transplant Pharmacy [address] [facility] [place] [address] PHARMACY [phone] [address] [address] (Wo rk) Social History Tobacco Use Types [...] on filedocumented in this encounter Care Teams Ssis Ssrs Developer Relationship Specialty Start Date End Date Momo Forbes PCP - General Family Practice 01/02/14 [facility] [address] [place] [address] documented as of this encounter
--- OUTSIDE RECORDS SUMMARY | 2022-05-24 11:47 | XMS_ITS | Encounter Summary ---
:1950 Author Organization [place] Address [address] [place] [address]. [place] [address] Care Team Providers Name Role Phone Momo Forbes Primary Care Provider Reason for Visit Reason Onset Date Comments Refill Request 02/28/2019 Encounter Details Date Type Department Care Team Description 02/28/2019 Refill [facility] Shiva Presley MD Refill Request Nephrology Clinic [facility] [place] [address] 5-4800 [phone] Social History Tobacco Use Types Packs/Day Years [...] disease documented in this encounter Care Teams Manager Behavior Relationship Specialty Start Date End Date Momo Forbes PCP - General Family Practice 01/02/14 [facility] [address] [place], [place] [address] documented as of this encounter
--- OUTSIDE RECORDS SUMMARY | 2022-05-24 11:47 | XMS_ITS | Encounter Summary ---
:1950 Author Organization [place] Address [facility] [place] [address] Care Team Providers Name Role Phone Momo Forbes Primary Care Provider Encounter Details Date Type Department Care Team Description 10/09/2019 Orders Only [facility] Transplant Mati Recinos RN Clinic [address] [place], [place] [phone] Social History Tobacco Use Types Packs/Day [...] CST Orders updated. Faxed to new lab: [facility] T [phone] F [phone] B TRAINER documented in this encounter Plan of Treatment Not on filedocumented as of this encounter Visit Diagnoses Not on filedocumented in this encounter Care Teams Heavy Equipment Technician Relationship Specialty Start Date End Date Forbes, Ton PCP - General Family Practice 01/02/14 [facility] [address] [place] [address] documented as of this encounter
--- OUTSIDE RECORDS SUMMARY | 2022-05-24 11:47 | XMS_ITS | Encounter Summary ---
:1950 Author Organization [place] Address [facility] [place] [address] Care Team Providers Name Role Phone Momo Forbes Primary Care Provider Joseph Quintana MD Unavailable Encounter Details Date Type Department Care Team Description 05/15/2018 External Order Results [facility] Nurse, [facility] Transplant Clinic [address] [place] [address] Social History Tobacco Use Types [...] 54 (L) >60 LABDE SCAN (if ml/min/1.7 Nigerien) 3m2 (External) GFR Estimated 44 (L) >60 [...] on filedocumented in this encounter Care Teams Electron Beam Photo Mask Maker Relationship Specialty Start Date End Date Momo Forbes PCP - General Family Practice 01/02/14 [facility] [address] [place] [address] Joseph Quintana, Assigned Nephrology 03/29/21 Provider 7 [facility] 353 [facility] [address] [place], [place] [id number] documented as of this encounter
--- OUTSIDE RECORDS SUMMARY | 2022-05-24 11:48 | XMS_ITS | Encounter Summary ---
:1950 Author Organization [place] Address [address] [facility] [place] [address] Care Team Providers Name Role Phone Momo Forbes Primary Care Provider Encounter Details Date Type Department Care Team Description 01/19/2017 Orders Only [facility] Loy Morales Aft ercare following organ transplant; [facility] Kidney replaced by transplant; Laboratory [address] [facility] Encounter for long-term curr ent use of medication [address] [place] [address] [phone] (Wo rk) Social History Tobacco Use Types [...] Results Tacrolimus level (01/19/2017 9:25 AM CDT) [facility] gist Method Time Signature Tacrolimus Last 0800 [facility] Dose 01/19/17 [facility] Tacrolimus 6.5 5.0 - [facility] 15.0 ug/L [facility] Comment: [...] its perform ance characteristics determined by the [facility], ??Special Chemistry Laboratory. It has [...] Address City/State/ZIP Code Phon e Number [id number] [place] [address] documented in this encounter Visit Diagnoses Diagnosis Aftercare following organ transplant Kidney replaced by transplant Encounter for long-term current use of m edication documented in this encounter Care Teams Interactive Designer Relationship Specialty Start Date End Date Momo Forbes PCP - General Family Practice 01/02/[address] [address] documented as of this encounter
--- OUTSIDE RECORDS SUMMARY | 2022-05-24 11:48 | XMS_ITS | Encounter Summary ---
:1950 Author Organization [place] Address [address] [place] [address]. [place] [address] Care Team Providers Name Role Phone Momo Forbes Primary Care Provider Reason for Visit Reason Onset Date Comments Transplant Pharmacy Medication Review 01/26/2017 Encounter Details Date Type Department Care Team Description 01/26/2017 Telephone [facility] Janes Rodriguez, Transplant Pharmacy [address] [facility] [place] [phone] Social History Tobacco Use Types Packs/Day Years [...] on filedocumented in this encounter Care Teams [employer] Company Flatbed Driver Relationship Specialty Start Date End Date Momo Forbes PCP - General Family Practice 01/02/14 [facility] [address] [place] [address] documented as of this encounter
--- OUTSIDE RECORDS SUMMARY | 2022-05-24 11:48 | XMS_ITS | Encounter Summary ---
:1950 Author Organization [place] Address [address] [place] [address] Care Team Providers Name Role Phone Momo Forbes A Primary Care Provider Encounter Details Date Type Department Care Team Description 07/22/2016 Orders Only [facility] Mariano, Joseph Perdomo isael, [facility] [place] 500 [facility] 717 [place], [place] [phone] [address] [place] [address] [place] [address] (Wo rk) Social History Tobacco [...] Res ults for this MASS SPECTROMETRY PM MANAGER SHIP procedure are in the results section. documented in this encounter Results (ABNORMAL) Tacrolimus level (08/09/2016 12:15 PM MANAGER SHIP) [facility] Method Time Signature Tacrolimus Last 08/08/[address] Tacrolimus 3.8 (L) 5.0 - [facility] Level 15.0 ug/L [facility] Comment: Tacrolimus Reference Range [...] its perform ance characteristics determined by the [facility], ??Special Chemistry Laboratory. It [...] / Volume Laterality 08/09/2016 12:15 08/11/2016 PM MANAGER SHIP 10:15 AM MANAGER SHIP Deysi Alicea MD LAB - BLOOD ORDERABLES Performing Organization Address City/State/ZIP Code Phon e Number [facility] [address] documented in this encounter Visit Diagnoses Not on filedocumented in this encounter Care Teams Irradiated Fuel Handler Relationship Specialty Start Date End Date Momo Forbes PCP - General Family Practice 01/02/14 [facility] [address] [place] [address] documented as of this encounter
--- OUTSIDE RECORDS SUMMARY | 2022-05-24 11:48 | XMS_ITS | Encounter Summary ---
:1950 Author Organization [place] Address [address]50 [facility] [place] [address] Care Team Providers Name Role Phone Momo Forbes A Primary Care Provider Reason for Visit Reason Onset Date Comments Refill Request 10/10/2017 mycophenolae Encounter Details Date Type Department Care Team Description 10/10/2017 Refill [facility] Mariano, Joseph Refill R equest Transplant Clinic MD Herminio (mycophenolae ) [address] [place] [phone] [place] [address] (Wo rk) Social History Tobacco [...] Fill Date: 09/01/17 Quantity: 180 Janelle Flowers [facility] [phone] GROUND INVESTIGATOR documented in this encounter Plan of Treatment Not on filedocumented as of this encounter Visit Diagnoses Diagnosis Kidney transplanted Kidney replaced by transplant documented in this encounter Care Teams Creative Writing Teacher Relationship Specialty Start Date End Date Momo Forbes PCP - General Family Practice 01/02/14 [facility] [address] [place] [address] documented as of this encounter
--- OUTSIDE RECORDS SUMMARY | 2022-05-24 11:48 | XMS_ITS | Encounter Summary ---
:1950 Author Organization [place] Address [address] [facility] [place] [address] Care Team Providers Name Role Phone Momo Forbes A Primary Care Provider Reason for Visit Reason Onset Date Comments Refill Request 12/19/2017 Encounter Details Date Type Department Care Team Description 12/19/2017 Refill [facility] Joseph Quintana MD Refill Request Transplant Clinic [address] [place] [address] [phone] [place] [address] (Wo rk) Social History Tobacco [...] Fill Date: 11/14/17 Quantity: 60 Janelle Flowers [facility] [phone] documented in this encounter Plan of Treatment Not on filedocumented as of this encounter Visit Diagnoses Diagnosis Kidney transplanted Kidney replaced by transplant documented in this encounter Care Teams Modern Greek Studies Professor Relationship Specialty Start Date End Date Momo Forbes PCP - General Family Practice 01/02/14 [facility] [address] [place] [address] documented as of this encounter
--- OUTSIDE RECORDS SUMMARY | 2022-05-24 11:48 | XMS_ITS | Encounter Summary ---
:1950 Author Organization [place] Address [address] [place] [address] Care Team Providers Name Role Phone ForbesMomo santiago A Primary Care Provider Reason for Visit Reason Onset Date Comments Transplant 09/12/2017 Encounter Details Date Type Department Care Team Description 09/12/2017 Telephone [facility] Transplant Nazia Jacobson, Transplant Clinic RN [address] [place] [phone] Social History Tobacco Use Types Packs/Day [...] updated standing lab order and faxed to [facility] lab. RITY DELIVERY SPECIALIST Telephone Encounter - Nazia Jacobson RN - 09/12/2017 8:36 AM SECURITY DELIVERY SPECIALIST ISSUE: Hyperglycemia (blood sugar 300-600s w/ last 2 blood draws) Overdue for transplant labs NURSE WOUND CARE TASK: Call Diego Guthrie and ask him who is managing his diabetes? Does he have an certified massage therapist? He needs to have better blood sugar control, elevated blood sugars can cause damage to his kidney. Remind him that he should be getting transplant labs done monthly. (3 years out from kidney transplant) Send updated lab letter. RITY DELIVERY SPECIALIST documented in this encounter Plan of Treatment Not on filedocumented as of this encounter Visit Diagnoses Not on filedocumented in this encounter Care Teams Real Estate Agency Principal Relationship Specialty Start Date End Date Momo Forbes PCP - General Family Practice 01/02/14 [facility] [address] [place] [address] documented as of this encounter
--- OUTSIDE RECORDS SUMMARY | 2022-05-24 11:48 | XMS_ITS | Encounter Summary ---
:1950 Author Organization [place] Address [address] [place] [address] Care Team Providers Name Role Phone Forbes, Momo He Primary Care Provider Reason for Visit Reason Comments RECHECK Kidney tx follow up Encounter Details Date Type Department Care Team Description 10/10/2017 Office Visit [facility] Shiva Presley Sta tus post kidney transplant (Primary Dx); Nephrology Clinic Immunosuppression (H); [facility] Type 2 diabetes mellitus wit h stage 3 chronic kidney disease, with long-term current use of insulin (H); [address] [place] [address] Benign essential hypertension; [address] Hyperlipidemia, unspecified hyperlipidemia type; [place], [place] RANJAN 220 Skin cancer screening [phone] [place] [address] (Wo rk) Social History Tobacco [...] Comments Blood Pressure 153/74 10/10/2017 2:25 PM SALES ANALYTICS MANAGER Pulse 55 10/10/2017 2:25 PM SALES ANALYTICS MANAGER Temperature 36.7 ??C (98.1 ??F) 10/10/2017 2:25 PM SALES ANALYTICS MANAGER Respiratory Rate - - Oxygen Saturation 98% 10/10/2017 2:25 PM SALES ANALYTICS MANAGER Inhaled Oxygen Concentration - - Weight 135.4 kg (298 lb 6.4 oz) 10/10/2017 2:25 PM SALES ANALYTICS MANAGER Height 182.9 cm (6') 10/10/2017 2:25 PM SALES ANALYTICS MANAGER Body Mass Index 40.47 10/10/2017 2:25 PM SALES ANALYTICS MANAGER documented in this encounter Progress Notes [...] is well as a referral to his presetter operator for monitoring for any skin cancers. 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 S ANALYTICS MANAGER documented in this encounter Nursing Notes [place] [...] Medication Reconciliation: complete MONROE ZURITA CMA . S ANALYTICS MANAGER documented in this encounter Plan of [...] skin documented in this encounter Care Teams Cloth Opener Hand Relationship Specialty Start Date End Date Momo Forbes PCP - General Family Practice 01/02/14 [facility] [address] [place] [address] documented as of this encounter
--- OUTSIDE RECORDS SUMMARY | 2022-05-24 11:48 | XMS_ITS | Encounter Summary ---
:1950 Author Organization [place] Address [facility] [place] [address] Care Team Providers Name Role Phone ForbesMomo prakash A Primary Care Provider Reason for Visit Reason Onset Date Comments Refill Request 09/28/2016 Encounter Details Date Type Department Care Team Description 09/28/2016 Refill [facility] Anita Joshi MD Refill Request Nephrology Clinic [address] [place] [address] [place] [address] [phone] Social History Tobacco Use Types Packs/Day Years [...] 1:51 PM CST Last Office Visit with Single Corner Cutter: March 2016. Medication refilled per Nephrology Clinic protocol. Janes Jauregui RN CHASER documented in this encounter Plan of Treatment Not on filedocumented as of this encounter Visit Diagnoses Diagnosis Reactive depression - Primary Dysthymic disorder documented in this encounter Care Teams Family Medicine Physician Assistant Relationship Specialty Start Date End Date Momo Forbes PCP - General Family Practice 01/02/14 [facility] [address] [place] [address] documented as of this encounter
--- OUTSIDE RECORDS SUMMARY | 2022-05-24 11:48 | XMS_ITS | Encounter Summary ---
:1950 Author Organization [place] Address [address] [place] [address] Care Team Providers Name Role Phone Momo Forbes Primary Care Provider Reason for Visit Reason Onset Date Comments Transplant 05/10/2016 refill Encounter Details Date Type Department Care Team Description 05/10/2016 Refill [facility] Transplant Chucho Perez MD Transplant (refill) 2nd Floor, Clinic [address] [place] [address] [facility] [place] [address] Social History Tobacco Use Types [...] send new rx Thank you Janelle Flowers [facility] [phone] documented in this encounter Plan of Treatment Not on filedocumented as of this encounter Visit Diagnoses Diagnosis Kidney transplanted - Primary Kidney replaced by transplant documented in this encounter Care Teams Senior Clinical Consultant Relationship Specialty Start Date End Date Momo Forbes PCP - General Family Practice 01/02/14 [place] [id number] documented as of this encounter
--- OUTSIDE RECORDS SUMMARY | 2022-05-24 11:48 | XMS_ITS | Encounter Summary ---
:1950 Author Organization [place] Address [address] [place] [address]. [place] [address] Care Team Providers Name Role Phone Momo Forbes Primary Care Provider Reason for Visit Reason Onset Date Comments Transplant Pharmacy Medication Review 01/19/2018 Encounter Details Date Type Department Care Team Description 01/19/2018 Telephone [facility] Beny Staton, Transplant Pharmacy [address] [facility] [place] [place] [address] [facility] [phone] [place]ARMACY [place], [place] [address] Social History Tobacco Use Types Packs/Day Years [...] on filedocumented in this encounter Care Teams Electronics Production Supervisor Relationship Specialty Start Date End Date Momo Forbes PCP - General Family Practice 01/02/14 [facility] [address] [place] [address] documented as of this encounter
--- OUTSIDE RECORDS SUMMARY | 2022-05-24 11:48 | XMS_ITS | Encounter Summary ---
:1950 Author Organization [place] Address [address]50 [facility] [place] [address] Care Team Providers Name Role Phone Momo Forbes Primary Care Provider Encounter Details Date Type Department Care Team Description 07/15/2017 Orders Only [facility] Loy Morales Kid ney replaced by [facility] MD transplant Laboratory [address] [facility] 500 [facility] 609 [place] [phone] (Wo rk) Social History Tobacco Use Types [...] by Results for this MASS SPECTROMETRY AM AUTOMATIC THREAD WINDER transplant procedure are in the results section. documented in this encounter Results (ABNORMAL) Tacrolimus level (07/15/2017 10:48 AM AUTOMATIC THREAD WINDER) [facility] Method Time Signature Tacrolimus Last 0000 07/19/2017 [facility] 07/15/17 10:48 AM [facility] Tacrolimus 4.4 (L) 5.0 - 07/19/2017 [facility] Level 15.0 ug/L 2:38 PM [facility] Comment: Tacrolimus Reference Range Kidney Transplant [...] its performa nce characteristics determined by the [facility], ??Special Chemistry Laboratory. It has [...] Blood specimen 07/15/2017 10:48 7 (specimen) AM AUTOMATIC THREAD WINDER 10:47 AM AUTOMATIC THREAD WINDER Orlando Richey MD LAB - BLOOD ORDERABLES Performing Organization Address City/State/ZIP Code Phon e Number [facility] 500 [place], [place] [phone] [place] [address] 500 [place], [place] [phone] [place] [address] documented in this encounter Visit Diagnoses Diagnosis Kidney replaced by transplant documented in this encounter Care Teams Abrasive Coating Machine Operator Relationship Specialty Start Date End Date Momo Forbes PCP - General Family Practice 01/02/14 [facility] [address] [place] [address] documented as of this encounter
--- OUTSIDE RECORDS SUMMARY | 2022-05-24 11:48 | XMS_ITS | Encounter Summary ---
:1950 Author Organization [place] Address [address] [place] [address]. [place] [address] Care Team Providers Name Role Phone Momo Forbes Primary Care Provider Reason for Visit Reason Onset Date Comments Refill Request 10/11/2017 Encounter Details Date Type Department Care Team Description 10/11/2017 Refill [facility] Transplant Debbie Calderon LPN Refill Request Clinic [address] [place] [address] [phone] Social History Tobacco Use Types Packs/Day [...] transplant documented in this encounter Care Teams Beach Attendant Relationship Specialty Start Date End Date Momo Forbes PCP - General Family Practice 01/02/14 [facility] [address] [place] [address] documented as of this encounter
--- OUTSIDE RECORDS SUMMARY | 2022-05-24 11:48 | XMS_ITS | Encounter Summary ---
:1950 Author Organization [place] Address [facility] [place] [address] Care Team Providers Name Role Phone ForbesMomo prakash A Primary Care Provider Reason for Visit Reason Comments RECHECK Kidney follow up Encounter Details Date Type Department Care Team Description 10/25/2016 Office Visit [facility] Anita Joshi MD Renal hypertension, Nephrology Clinic [address] [place] [address] 1-4 [address] [place] [address] unspecified chronic [address] [place], [place] [address] (Primary Dx) [address] [phone] Social History Tobacco Use Types Packs/Day Years [...] Comments Blood Pressure 168/83 10/25/2016 4:39 PM HEEL BREASTER Pulse 55 10/25/2016 4:39 PM HEEL BREASTER Temperature 36.8 ??C (98.3 ??F) 10/25/2016 4:39 PM HEEL BREASTER Respiratory Rate 18 10/25/2016 4:39 PM HEEL BREASTER Oxygen Saturation - - Inhaled Oxygen Concentration - - Weight 138.2 kg (304 lb 9.6 oz) 10/25/2016 4:39 PM HEEL BREASTER Height 182.9 cm (6') 10/25/2016 4:39 PM HEEL BREASTER Body Mass Index 41.31 10/25/2016 4:39 PM HEEL BREASTER documented in this encounter Progress Notes Chucho [...] (304 lb 9.6 oz). Medication Reconciliation: complete BREASTER documented in this encounter Plan of Treatment Not on filedocumented as of this encounter Visit Diagnoses Diagnosis Renal hypertension, stage 1-4 or unspeci fied chronic kidney disease - Primary documented in this encounter Care Teams Manager Cash Relationship Specialty Start Date End Date Momo Forbes PCP - General Family Practice 01/02/14 [facility] [address] [place] [address] documented as of this encounter
--- OUTSIDE RECORDS SUMMARY | 2022-05-24 11:48 | XMS_ITS | Encounter Summary ---
:1950 Author Organization [place] Address [address] [place] [address]. [place] [address] Care Team Providers Name Role Phone Momo Forbes Primary Care Provider Encounter Details Date Type Department Care Team Description [facility] [place] [phone] Social History Tobacco Use Types Packs/Day Years [...] disease documented in this encounter Care Teams Imaging Tech Relationship Specialty Start Date End Date Momo Forbes PCP - General Family Practice 01/02/14 [facility] [address] [place] [address] documented as of this encounter
--- OUTSIDE RECORDS SUMMARY | 2022-05-24 11:48 | XMS_ITS | Encounter Summary ---
:1950 Author Organization [place] Address [address] [place] [address]. [place] [address] Care Team Providers Name Role Phone Momo Forbes Primary Care Provider Reason for Visit Reason Onset Date Comments Refill Request 08/31/2017 mycophenolate Encounter Details Date Type Department Care Team Description 08/31/2017 Refill [facility] Mariano, Joseph Refill R equest Transplant Clinic MD Herminio (mycophenolate) [address] [place] [phone] [place] [address] (Wo rk) Social History Tobacco [...] transplant documented in this encounter Care Teams Relationship Counselor Relationship Specialty Start Date End Date Momo Forbes PCP - General Family Practice 01/02/14 [facility] [address] [place], [place] [address] documented as of this encounter
--- OUTSIDE RECORDS SUMMARY | 2022-05-24 11:48 | XMS_ITS | Encounter Summary ---
:1950 Author Organization [place] Address [facility] [place] [address] Care Team Providers Name Role Phone ForbesMomo santiago A Primary Care Provider Reason for Visit Reason Onset Date Comments Transplant 06/01/2017 Diego returning call Left on 06/05/17 Encounter Details Date Type Department Care Team Description 06/01/2017 [facility] Shiva Kahn, lending activities supervisor (Diego Transplant Clinic [facility] returning call Left [facility] on 06/05/17) [place], [place] [phone] [place], [place] [phone] [address] Social History Tobacco Use Types Packs/Day [...] care to get a good 12-hour level. CLASSROOM TEACHER TASK: Please fax lab order for tacrolimus level Telephone Encounter - Mary Whitehead - 06/06/2017 7:47 AM CDT Please call Diego. Called on Tuesday left to call him on Tuesday06/06/17. ADDENDUM: CLASSROOM TEACHER TASK: Call with questions and instruction per [...] on filedocumented in this encounter Care Teams Shale Miner Blasting Relationship Specialty Start Date End Date Momo Forbes PCP - General Family Practice 01/02/14 [facility] [address] [place] [address] documented as of this encounter
--- OUTSIDE RECORDS SUMMARY | 2022-05-24 11:48 | XMS_ITS | Encounter Summary ---
:1950 Author Organization [place] Address [address] [facility] [place] [address] Care Team Providers Name Role Phone Momo Forbes Primary Care Provider Reason for Visit Reason Onset Date Comments Pre Visit Planning - Unable To Reach 10/14/2016 Encounter Details Date Type Department Care Team Description 10/14/2016 Telephone [facility] Anita Joshi MD Pre Visit Planning - Nephrology Clinic [address] [place] [address] [place] ble To Reach [address] [address] [phone] Social History Tobacco Use Types Packs/Day Years [...] is office from Clinic 3B at the [facility]. We are calling to remind you of your upcoming Nephrology appointment on 10/25/16 at 440pm. Please arrive about 1 hours prior to your appointment time for labs. Also, please bring an updated medication list or your labeled medication bottles with you to your appointment. If you have any questions or would like to cancel or reschedule your appointment, please call us at [phone]. You are welcome to have your labs done up to a week before your appointment at any [place] or [facility] facility. If you have your labs completed before your appointment, please still come 30 minutes early for check-in MONROE ZUIRTA CMA ER WATERPROOFING MACHINE ADJUSTER documented in this encounter Plan of Treatment Not on filedocumented as of this encounter Visit Diagnoses Not on filedocumented in this encounter Care Teams Shipfitter Relationship Specialty Start Date End Date Momo Forbes PCP - General Family Practice 01/02/14 [facility] [address] [place] [address] documented as of this encounter
--- OUTSIDE RECORDS SUMMARY | 2022-05-24 11:48 | XMS_ITS | Encounter Summary ---
:1950 Author Organization [place] Address [address] [place] [address] Care Team Providers Name Role Phone Momo Forbes Primary Care Provider Encounter Details Date Type Department Care Team Description 05/31/2017 Orders Only [facility] Loy Morales Kid ney replaced by [facility] MD transplant Laboratory 420 [facility] 500 [facility] 609 [place] [address] [id number] (Wo rk) Social History Tobacco Use Types [...] (ABNORMAL) Tacrolimus level (05/30/2017 1:01 PM CDT) [facility] Method Time Signature Tacrolimus Last 05/29/17 05/31/2017 [facility] Dose 1930 1:05 PM CDT [facility] Tacrolimus 3.0 (L) 5.0 - 05/31/2017 [facility] 15.0 ug/L 7:54 PM CDT [facility] Comment: Tacrolimus [...] its performa nce characteristics determined by the [facility], [...] Phon e Number [facility] 500 [place], [place] [phone] [place] [address] documented in this encounter Visit Diagnoses Diagnosis Kidney replaced by transplant documented in this encounter Care Teams Soil Fertility Specialist Relationship Specialty Start Date End Date Momo Forbes PCP - General Family Practice 01/02/14 [facility] [address] [place] [address] documented as of this encounter
--- OUTSIDE RECORDS SUMMARY | 2022-05-24 11:48 | XMS_ITS | Encounter Summary ---
:1950 Author Organization [place] Address [address] [place] [address] Care Team Providers Name Role Phone Forbes, Ton Primary Care Provider Reason for Visit Reason Onset Date Comments Transplant 11/07/2017 Encounter Details Date Type Department Care Team Description 11/07/2017 Telephone [facility] Transplant Nazia Jacobson, Transplant Clinic RN [address] [phone] Social History Tobacco Use Types Packs/Day [...] range, repeat tac level in 1 week. RUG SETTER AXMINSTER TASK: Call patient with instructions per plan. Enter lab orders if needed. documented in this encounter Plan of Treatment Not on filedocumented as of this encounter Visit Diagnoses Not on filedocumented in this encounter Care Teams Electrician Substation Supervisor Relationship Specialty Start Date End Date Momo Forbes PCP - General Family Practice 01/02/[address] [address] documented as of this encounter
--- OUTSIDE RECORDS SUMMARY | 2022-05-24 11:48 | XMS_ITS | Encounter Summary ---
:1950 Author Organization [place] Address [facility] [place] [address] Care Team Providers Name Role Phone ForbesMomo prakash A Primary Care Provider Encounter Details Date Type Department Care Team Description 10/25/2016 [facility] Only [facility] Thrombocytopenia (H[facility] [address] Aftercare following organ tr ansplant; 1st Floor Kidney replaced by transplan t; [place], [place] Encounter fo r long-term current use [...] Thrombocytopenia (H) Resu lts for this PM CULINARY SPECIALIST procedure are i n the results section. BASIC METABOLIC Routine 10/25/2016 3:54 Aftercare following Re sults for this PANEL PM CULINARY SPECIALIST organ transplant procedure are in Kidney replaced by the resul ts transplant section. Encounter for long-term current use of medication CBC WITH PLATELETS Routine 10/25/2016 3:54 Aftercare following Results for this PM CULINARY SPECIALIST organ transplant procedure are in Kidney replaced by the [facility] ts transplant section. Encounter for long-term current use of medication PROTEIN RANDOM Routine 10/25/2016 3:52 Aftercare following Res ults for this URINE PM CULINARY SPECIALIST organ transplant procedure are in Kidney replaced by the [facility] ts transplant section. Encounter for long-term current use of medication CREATININE URINE Routine 10/25/2016 3:52 Thrombocytopenia (H) Results for this CALCULATION ONLY PM CULINARY SPECIALIST procedure a re in (LAB ONLY) the results section. documented in this encounter Results (ABNORMAL) Basic metabolic panel (10/25/2016 3:54 PM CULINARY SPECIALIST) [facility] Method Time Signature Sodium 142 133 - 144 [facility] mmol/L [facility] Potassium 4.2 3.4 - 5.3 [facility] mmol/L [facility] Chloride 108 94 - 109 [facility] mmol/L [facility] Carbon Dioxide 28 20 - 32 [facility] mmol/L [facility] Anion Gap 7 3 - 14 [facility] mmol/L [facility] Glucose 120 (H) 70 - 99 [facility] mg/dL [facility] Urea Nitrogen 19 7 - 30 [facility] mg/dL [facility] Creatinine 1.39 (H) 0.66 - [facility] 1.25 mg/dL [facility] GFR Estimate 51 (L) >60 [facility] mL/min/1.7 [place] m2 [facility] Comment: Non GFR Calc GFR Estimate If Black 62 >60 mL/min/1.7m2 [facility] Comment: GFR Calc Calcium 9.4 8.5 - 10.1 mg/dL [facility] Specimen Anatomical Collection Method Collection Time Receive d Time (Source) Location / / Volume Laterality Blood specimen 10/25/2016 3:54 PM 017 3:55 (specimen) CULINARY SPECIALIST PM CULINARY SPECIALIST Chucho Joshi MD LAB - BLOOD ORDERABLES Performing Organization Address City/State/ZIP Code Phon e Number [address] [phone] [facility] (ABNORMAL) CBC with platelets (10/25/2016 3:54 PM CULINARY SPECIALIST) Analysis Performed At Patho logist Time Signature WBC 5.1 4.0 - 11.0 [facility] 10e9/L [facility] RBC Count 5.50 4.4 - 5.9 [facility] 10e12/L [facility] Hemoglobin 15.5 13.3 - [facility] 17.7 g/dL [facility] Hematocrit 46.0 40.0 - [facility] 53.0 % [facility] MCV 84 78 - 100 [facility] fl [facility] MCH 28.2 26.5 - [facility] 33.0 pg [facility] MCHC 33.7 31.5 - [facility] 36.5 g/dL [facility] RDW 14.1 10.0 - [facility] 15.0 % [facility] Platelet Count 124 (L) 150 - 450 [facility] 10e9/L [facility] Specimen Anatomical Collection Method Collection Time Receive d Time (Source) Location / / Volume Laterality Blood specimen 10/25/2016 3:54 PM 017 3:55 (specimen) CULINARY SPECIALIST PM CULINARY SPECIALIST Chucho Joshi MD LAB - BLOOD ORDERABLES Performing Organization Address City/[facility] [place] [address] [facility] Folate RBC (10/25/2016 3:54 PM CULINARY SPECIALIST) P athologist Signature HCT Within 46.0 % [facility] Past 24h [facility] Folate RBC 663 ng/mL [facility] Comment: Reference range: >=366 (Note) Performed by [employer], [address] [place] [id number] [email or web address] Prell, Geoff Reed MD, Lab. Director Specimen Anatomical Collection Method Collection Time Receive d Time (Source) Location / / Volume Laterality Blood specimen 10/25/2016 3:54 PM 017 3:55 (specimen) CULINARY SPECIALIST PM CULINARY SPECIALIST Chucho Joshi MD LAB - BLOOD ORDERABLES Performing Organization Address City/[facility]/ZIP Code Phon e Number [address] [phone] [facility] Creatinine urine calculation only (10/25/2016 3:52 PM CULINARY SPECIALIST) P athologist Signature Creatinine 152 mg/dL [facility] Specimen Anatomical Collection Method Collection Time Receive d Time (Source) Location / / Volume Laterality 10/25/2016 3:52 PM 201 7 4:12 CULINARY SPECIALIST PM CULINARY SPECIALIST Chucho Joshi MD LAB - URINE ORDERABLES Performing Organization Address City/State/ZIP Code Phon e Number [facility] [address] [place] [address] [phone] [facility] [address] [place] [phone], [place] [phone] (ABNORMAL) Protein random urine (10/25/2016 3:52 PM CULINARY SPECIALIST) Analysis Performed At Patho logist Time Signature Protein Random 0.48 g/L [facility] Protein Total 0.31 (H) 0 - 0.2 [place] Urine g/gr g/g Cr [facility] Specimen Anatomical Collection Method Collection Time Receive d Time (Source) Location / / Volume Laterality Urine specimen 10/25/2016 3:52 PM 017 4:12 (specimen) CULINARY SPECIALIST PM CULINARY SPECIALIST Chucho Joshi MD LAB - URINE ORDERABLES Performing Organization Address City/State/ZIP Code Phon e Number [facility] [address] [phone] [facility] [address] [place] [address], [place] [phone] documented in this encounter Visit Diagnoses Diagnosis Thrombocytopenia (H) Thrombocytopenia, unspecified Aftercare following organ transplant Kidney replaced by transplant Encounter for long-term current use of m edication documented in this encounter Care Teams Front End Assistant Relationship Specialty Start Date End Date Momo Forbes PCP - General Family Practice 01/02/14 [facility] [address] [place] [address] documented as of this encounter
--- OUTSIDE RECORDS SUMMARY | 2022-05-24 11:48 | XMS_ITS | Encounter Summary ---
:1950 Author Organization [place] Address [address] [place] [address]. [place] [address] Care Team Providers Name Role Phone Momo Forbes Primary Care Provider Reason for Visit Reason Onset Date Comments Transplant 05/26/2017 refill Encounter Details Date Type Department Care Team Description 05/26/2017 Refill [facility] Anita Joshi MD Transplant (refill) Nephrology Clinic [address] [place] [phone] [place] [address] (Wo rk) [address] [phone] Social History Tobacco Use Types Packs/Day Years [...] transplant documented in this encounter Care Teams Java Technical Manager Relationship Specialty Start Date End Date Momo Forbes PCP - General Family Practice 01/02/14 [facility] [address] [place] [address] documented as of this encounter
--- OUTSIDE RECORDS SUMMARY | 2022-05-24 11:48 | XMS_ITS | Encounter Summary ---
:1950 Author Organization [place] Address [address] [place] [address]. [place] [address] Care Team Providers Name Role Phone Momo Forbes Primary Care Provider Reason for Visit Reason Onset Date Comments Transplant 08/31/2017 Encounter Details Date Type Department Care Team Description 08/31/2017 Telephone [facility] Transplant Amanda Garduno Transplant Clinic M, RN [address] [phone] Social History Tobacco Use Types Packs/Day [...] filedocumented in this encounter Care Teams Animal Husbandry Worker Relationship Specialty Start Date End Date Momo Forbes PCP - General Family Practice 01/02/14 [facility] [address] [place] [address] documented as of this encounter
--- OUTSIDE RECORDS SUMMARY | 2022-05-24 11:48 | XMS_ITS | Encounter Summary ---
:1950 Author Organization [place] Address [address] [facility] [place] [address] Care Team Providers Name Role Phone ForbesMomo prakash A Primary Care Provider Reason for Visit Reason Onset Date Comments Appointment 10/05/2017 Encounter Details Date Type Department Care Team Description 10/05/2017 Telephone [facility] Shiva Presley MD Appointment Nephrology Clinic [facility] [address] [place] [address] [phone] Social History Tobacco Use Types Packs/Day Years [...] or concernsahead of appointment. Romi Rodriguez RN DINATOR HOTELS documented in this encounter Plan of Treatment Not on filedocumented as of this encounter Visit Diagnoses Not on filedocumented in this encounter Care Teams Nonprofit Director Relationship Specialty Start Date End Date Momo Forbes PCP - General Family Practice 01/02/14 [facility] [address] [place] [address] documented as of this encounter
--- OUTSIDE RECORDS SUMMARY | 2022-05-24 11:48 | XMS_ITS | Encounter Summary ---
:1950 Author Organization [place] Address [facility] [place] [address] Care Team Providers Name Role Phone Momo Forbes Primary Care Provider Joseph Quintana MD Unavailable Encounter Details Date Type Department Care Team Description 09/09/2017 External Order [facility] Nurse, [facility] Kidney replaced by Results Transplant Clinic transplant [address] [place] [phone] Social History Tobacco Use Types Packs/Day [...] 07/15/2017 10:48 AM Result s for this YARD GOODS SALESPERSON procedure are i n the results section. BASIC METABOLIC Routine 07/15/2017 10:48 AM Kidney replaced by Results for this PANEL YARD GOODS SALESPERSON transplant procedure are i n the results [...] Results (ABNORMAL) Hemoglobin A1c (07/15/2017 10:48 AM YARD GOODS SALESPERSON) Patholo gist Method Time Signature Hemoglobin A1C >14.0 (H) <=6.4 % LABDE SCAN (External) Specimen (Source) Anatomical Collection Method Collection Time Re ceived Time Location / / Volume Laterality Blood specimen 07/15/2017 10:48 (specimen) AM YARD GOODS SALESPERSON Narrative ZACHERYMARIELABea PFT - 09/09/2017 9:36 PM YARD GOODS SALESPERSON Verified by Sharon Martinez on 8. Patient Reported LAB - BLOOD ORDERABLES Performing Organization Address City/State/ZIP Code Phon e Number JESSICA PFT LABDE SCAN (ABNORMAL) Basic metabolic panel (07/15/2017 10:48 AM YARD GOODS SALESPERSON) Analysis Performed At Patho logist Time Signature [...] 55 (L) >60 LABDE SCAN (if ml/min/1.7 [place]ian) 3m2 (External) GFR Estimated 46 (L) >60 LABDE SCAN (External) ml/min/1.7 3m2 Specimen (Source) Anatomical Collection Method Collection Time Re ceived Time Location / / Volume Laterality Blood specimen 07/15/2017 10:48 (specimen) AM YARD GOODS SALESPERSON Narrative [facility] PFT - 09/09/2017 9:36 PM YARD GOODS SALESPERSON Verified by Sharon Martinez on 8. [place] [...] Narrative [facility] PFT - 09/09/2017 9:39 PM YARD GOODS SALESPERSON Verified by Sharon Martinez on 8. Patient [...] Narrative [facility] PFT - 09/09/2017 9:39 PM YARD GOODS SALESPERSON Verified by Sharon Martinez on 8. [place] [...] 51 (L) >60 LABDE SCAN (if ml/min/1.7 Bah[place]ian) 3m2 (External) GFR Estimated 42 (L) >60 LABDE SCAN (External) ml/min/1.7 3m2 Specimen (Source) Anatomical Collection Method Collection Time Re ceived Time Location / / Volume Laterality Blood specimen 05/30/2017 9:32 AM (specimen) CDT Narrative [facility] PFT - 09/09/2017 9:39 PM YARD GOODS SALESPERSON Verified by Sharon Martinez on 8. [place] [...] Narrative [facility]ZE PFT - 09/09/2017 9:44 PM YARD GOODS SALESPERSON Verified by Sharon Martinez on 8. Patient [...] Narrative [facility]REEZE PFT - 09/09/2017 9:44 PM YARD GOODS SALESPERSON Verified by Sharon Martinez on 8. Patient [...] Narrative BREEZE PFT - 09/09/2017 9:44 PM YARD GOODS SALESPERSON Verified by Sharon Martinez on 8. Patient [...] 55 (L) >60 LABDE SCAN (if ml/min/1.7 Bahamian) 3m2 (External) GFR Estimated 46 (L) >60 LABDE SCAN (External) ml/min/1.7 3m2 Specimen (Source) Anatomical Collection Method Collection Time Re ceived Time Location / / Volume Laterality Blood specimen 01/19/2017 9:30 AM (specimen) CDT Narrative JESSICA PFT - 09/09/2017 9:44 PM YARD GOODS SALESPERSON Verified by Sharon Martinez on 8. Patient Reported LAB - BLOOD ORDERABLES Performing Organization Address City/State/ZIP Code Phon e Number BREEZBea PFT LABDE SCAN documented in this encounter Visit Diagnoses Diagnosis Kidney replaced by transplant documented in this encounter Care Teams Print Cutter Relationship Specialty Start Date End Date Momo Forbes PCP - General Family Practice 01/02/14 [facility] [address] [place] [address] Joseph Quintana, Assigned Nephrology 03/29/21 Provider 717 [facility] 353 [facility] [address] [place] [address] documented as of this encounter
--- OUTSIDE RECORDS SUMMARY | 2022-05-24 11:48 | XMS_ITS | Encounter Summary ---
:1950 Author Organization [place] Address [address] [place] [address] Care Team Providers Name Role Phone Momo Fobres Primary Care Provider Encounter Details Date Type Department Care Team Description 11/03/[address] [facility] Loy Morales Kid ney replaced by [facility] MD transplant Laboratory [address] [facility] 500 [facility] 609 [place] [phone] (Wo rk) Social History Tobacco Use Types [...] Results Tacrolimus level (11/03/2017 11:30 AM CDT) [facility] Method Time Signature Tacrolimus Not Provided 11/05/2017 [facility] Last Dose 2:20 PM CDT [facility] Tacrolimus 10.7 5.0 - 11/06/2017 [facility] 15.0 ug/L 1:00 PM CDT [facility] Comment: Tacrolimus Reference Range Kidney [...] its performa nce characteristics determined by the [facility], ??Special [...] Address City/State/ZIP Code Phon e Number [phone] [place] [address] documented in this encounter Visit Diagnoses Diagnosis Kidney replaced by transplant documented in this encounter Care Teams Complex Human Resources Manager Relationship Specialty Start Date End Date Momo Forbes PCP - General Family Practice 01/02/14 [facility] [address] [place] [address] documented as of this encounter
--- OUTSIDE RECORDS SUMMARY | 2022-05-24 11:48 | XMS_ITS | Encounter Summary ---
:1950 Author Organization [place] Address [address] [place] [address]. [place] [address] Care Team Providers Name Role Phone Momo Forbes Primary Care Provider Encounter Details Date Type Department Care Team Description 03/23/2017 Orders Only [facility] [place] Kidne y replaced by Nephrology Clinic transplant (Primary [address] Dx) [address] [place] [phone] Social History Tobacco Use Types Packs/Day [...] Primary documented in this encounter Care Teams Marine Fisheries Technician Relationship Specialty Start Date End Date Momo Forbes PCP - General Family Practice 01/02/14 [facility] [address] [place] [address] documented as of this encounter
--- OUTSIDE RECORDS SUMMARY | 2022-05-24 11:48 | XMS_ITS | Encounter Summary ---
:1950 Author Organization [place] Address [facility] [place] [address] Care Team Providers Name Role Phone Momo Forbes Primary Care Provider Joseph Quintana MD Unavailable Encounter Details Date Type Department Care Team Description 08/18/2016 External Order Results [facility] Nurse, [facility] Transplant Clinic 9 [place] [phone] Social History Tobacco Use Types [...] 08/09/2016 12:21 PM Results for this RESULTS NURSE LDR procedure are i n the results section. documented in this encounter Results (ABNORMAL) TXP External Lab Result (08/09/2016 12:21 PM NURSE LDR) Analysis Performed At Patho logist Time Signature [...] / / Volume Laterality 08/09/2016 12:21 PM NURSE LDR Narrative [facility] PFT - 08/18/2016 1:35 PM NURSE LDR Verified by Jessica Major on 016. Patient Reported LABORATORY Performing Organization Address City/State/ZIP Code Phon e Number [facility] PFT LABDE SCAN documented in this encounter Visit Diagnoses Not on filedocumented in this encounter Care Teams Children'S Literature Professor Relationship Specialty Start Date End Date Momo Forbes PCP - General Family Practice 01/02/14 [facility] [address] [place], [place] [phone] Joseph Quintana, Assigned Nephrology 03/29/21 MD Provider [address] [place] [address] 353 [facility] 1932 [place], [place] [address] documented as of this encounter
--- OUTSIDE RECORDS SUMMARY | 2022-05-24 11:48 | XMS_ITS | Encounter Summary ---
:1950 Author Organization [place] Address [address] [place] [address]. [place] [address] Care Team Providers Name Role Phone Momo Forbes Primary Care Provider Reason for Visit Reason Onset Date Comments Transplant 12/02/2016 refill Encounter Details Date Type Department Care Team Description 12/02/2016 Refill [facility] Anita Joshi MD Transplant (refill) Nephrology Clinic [address] [place] [phone] [place] [address] (Wo rk) [phone] Social History Tobacco Use Types Packs/Day Years [...] transplant documented in this encounter Care Teams Point Of Care Technician Relationship Specialty Start Date End Date Momo Forbes PCP - General Family Practice 01/02/14 [facility] [address] [place] [address] documented as of this encounter
--- OUTSIDE RECORDS SUMMARY | 2022-05-24 11:48 | XMS_ITS | Encounter Summary ---
:1950 Author Organization [place] Address [address] [address] Care Team Providers Name Role Phone ForbesMomo santiago A Primary Care Provider Encounter Details Date Type Department Care Team Description 05/30/2017 Hospital Encounter [facility] [place], [facility] [address] [address] [phone] (Wo rk) Social History Tobacco Use Types [...] filedocumented in this encounter Care Teams Environmental Health Specialist Relationship Specialty Start Date End Date Momo Forbes PCP - General Family Practice 01/02/14 [facility] [address] [place] [address] documented as of this encounter
--- OUTSIDE RECORDS SUMMARY | 2022-05-24 11:48 | XMS_ITS | Encounter Summary ---
:1950 Author Organization [place] Address [address] [facility] [place] [address] Care Team Providers Name Role Phone Momo Forbes A Primary Care Provider Reason for Visit Reason Onset Date Comments Refill Request 06/28/2017 mycophenolate Encounter Details Date Type Department Care Team Description 06/28/2017 Refill [facility] Mariano, Joseph Refill R equest Transplant Clinic MD Herminio (mycophenolate) [address] [place] [phone] [place] [address] (Wo rk) Social History Tobacco [...] Fill Date: 05/31/17 Quantity: 180 Janelle Flowers [facility] [phone] INDERGARTEN TEACHER documented in this encounter Plan of Treatment Not on filedocumented as of this encounter Visit Diagnoses Diagnosis Kidney transplanted - Primary Kidney replaced by transplant documented in this encounter Care Teams Speech Therapist Relationship Specialty Start Date End Date Momo Forbes PCP - General Family Practice 01/02/[address] [address] documented as of this encounter
--- OUTSIDE RECORDS SUMMARY | 2022-05-24 11:48 | XMS_ITS | Encounter Summary ---
:1950 Author Organization [place] Address [facility] [place] [address] Care Team Providers Name Role Phone ForbesMomo prakash A Primary Care Provider Reason for Visit Reason Onset Date Comments Transplant Immunosuppression Management 08/13/2016 Encounter Details Date Type Department Care Team Description 08/13/2016 Telephone [facility] Shiva Kahn Transp lant Transplant Clinic RN Immunosuppression 9 [facility] Management [address] [phone] [place] [address] [place], [place] [id number] Social History Tobacco Use Types Packs/Day Years [...] Patient will repeat labs in 1-2 weeks. R RUNNER Telephone Encounter - Shiva Kahn, RN - 08/13/2016 7:42 AM CST Tacrolimus level 3.8 reported as 18-hour level. PLAN: Verify timing of labs tac dose and time of blood draw for tac level. Repeat tac level taking care to get a good 12-hour level (11-13 hours acceptable). TASK: Please call patient with questions and instructions per plan. R RUNNER documented in this encounter Plan of Treatment Not on filedocumented as of this encounter Visit Diagnoses Diagnosis Kidney replaced by transplant - Primary Aftercare following organ transplant Encounter for long-term current use of m edication documented in this encounter Care Teams Cabin Agent Relationship Specialty Start Date End Date Momo Forbes PCP - General Family Practice 01/02/14 [facility] [address] [place] [address] documented as of this encounter
--- OUTSIDE RECORDS SUMMARY | 2022-05-24 11:49 | XMS_ITS | Encounter Summary ---
:1950 Author Organization [place] Address [facility] [place] [address] Care Team Providers Name Role Phone Ingrid Santana RN Unavailable Unavailable Momo Forbes Primary Care Provider Reason for Visit Reason Onset Date Comments Patient Reminder 08/28/2015 Encounter Details Date Type Department Care Team Description 08/28/2015 Telephone Nephrology Yesenia Clements CMA Patient Reminder 2nd Floor, Clinic 2A [place] [phone] Social History Tobacco Use Types Packs/Day [...] Patient confirmed and understood. Yesenia Clements CMA DISTRIBUTOR documented in this encounter Plan of Treatment Not on filedocumented as of this encounter Visit Diagnoses Not on filedocumented in this encounter Care Teams Fall Internship Relationship Specialty Start Date End Date Momo Forbes PCP - General Family Practice 01/02/14 [facility] [address] [place] [phone] Ingrid Santana, RN Registered Nurse Transplant 02/10/12 documented as of this encounter
--- OUTSIDE RECORDS SUMMARY | 2022-05-24 11:49 | XMS_ITS | Encounter Summary ---
:1950 Author Organization [place] Address [facility] [place] [address] Care Team Providers Name Role Phone Momo Forbes Primary Care Provider Joseph Quintana MD Unavailable Encounter Details Date Type Department Care Team Description 05/03/2016 External Order Results [facility] Nurse, [facility] Transplant Clinic 9 [place] [address] Social History Tobacco Use [...] filedocumented in this encounter Care Teams School Inspector Relationship Specialty Start Date End Date Momo Forbes PCP - General Family Practice 01/02/14 [facility] [address] [place] [address] Joseph Quintana, Assigned Nephrology 03/29/21 MD Provider [address] [place], [place] [address] documented as of this encounter
--- OUTSIDE RECORDS SUMMARY | 2022-05-24 11:49 | XMS_ITS | Encounter Summary ---
:1950 Author Organization [place] Address [facility] [place] [address] Care Team Providers Name Role Phone Ingrid Santana RN Unavailable Unavailable Momo Forbes Primary Care Provider Reason for Referral Consultation - Closed Specialty Diagnoses / Procedures Referred By Contact Refer red To Contact Diagnoses Morbid obesity due to excess calories (H) Deysi Alicea MD [facility] [address] [place] [phone] Referral ID Status Reason Start Date Expiration Date Visits Requ ested Visits Authorized [id number] Closed 09/02/2015 09/01/2016 1 1 ANICAL ASSEMBLY Reason for Visit Reason Comments RECHECK Follow up Kidney TX 4 Encounter Details Date Type Department Care Team Description 09/02/2015 Office Visit Nephrology Deysi Alicea, S/P kidney transplant (Prima ry Dx); 2nd Floor, Clinic 2A Morbid obesity due to excess calories (H ) Tommy Wilburn [address] [place] [id number] [place] [address] (Wo rk) [phone] [phone] Social History Tobacco Use Types Packs/Day Years [...] Comments Blood Pressure 128/72 09/02/2015 4:32 PM MECHANICAL ASSEMBLY Pulse 61 09/02/2015 4:32 PM MECHANICAL ASSEMBLY Temperature 36.7 ??C (98 ??F) 09/02/2015 4:32 PM MECHANICAL ASSEMBLY Respiratory Rate - - Oxygen Saturation 94% 09/02/2015 4:32 PM MECHANICAL ASSEMBLY Inhaled Oxygen Concentration - - Weight 141.8 kg (312 lb 9.6 oz) 09/02/2015 4:32 PM MECHANICAL ASSEMBLY Height 182.9 cm (6' 0.01) 09/02/2015 4:32 PM MECHANICAL ASSEMBLY Body Mass Index 42.39 09/02/2015 4:32 PM MECHANICAL ASSEMBLY documented in this encounter Progress Notes Deysi [...] discharged on Cumadin; Cumadin was stopped by steam frame operator during the follow up visit, as [...] Years of Education: 14 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 BP completed using cuff size: large ANICAL ASSEMBLY documented in this encounter Plan of Treatment [...] ) documented in this encounter Care Teams Manager Process Excellence Relationship Specialty Start Date End Date Momo Forbes PCP - General Family Practice 01/02/14 [facility] [address] [place] [address] Ingrid Santana, RN Registered Nurse Transplant 02/10/12 documented as of this encounter
--- OUTSIDE RECORDS SUMMARY | 2022-05-24 11:49 | XMS_ITS | Encounter Summary ---
:1950 Author Organization [place] Address [address] [place] [address]. [place] [address] Care Team Providers Name Role Phone Momo Forbes Primary Care Provider Reason for Visit Reason Onset Date Comments Transplant Pharmacy Medication Review 02/05/2016 Encounter Details Date Type Department Care Team Description 02/05/2016 Telephone [facility] Nani Humphrey, [facility] Transplant Pharmacy 500 [facility] [place] [address] [place] [phone] [place] [address] (Wo rk) Social History Tobacco Use Types [...] on filedocumented in this encounter Care Teams Cluster Bore Operator Relationship Specialty Start Date End Date Momo Forbes PCP - General Family Practice 01/02/14 [facility] 1999 [place] [address] documented as of this encounter
--- OUTSIDE RECORDS SUMMARY | 2022-05-24 11:49 | XMS_ITS | Encounter Summary ---
:1950 Author Organization [place] Address [facility] [address] Care Team Providers Name Role Phone Momo Forbes Primary Care Provider Joseph Quintana MD Unavailable Encounter Details Date Type Department Care Team Description 03/18/2016 External Order Results [facility] Nurse, [facility] Transplant Clinic 9 [place] [address] Social History Tobacco Use Types [...] External Lab Result (03/17/2016 10:45 AM CDT) [facility] Method Time Signature Sodium (External) 139 [...] filedocumented in this encounter Care Teams Machine Tool Mechanic Relationship Specialty Start Date End Date Momo Forbes PCP - General Family Practice 01/02/14 [facility] [address] [place] [address] Joseph Quintana, Assigned Nephrology 03/29/21 MD Provider [address] [place] [address] 1932 [place] [address] documented as of this encounter
--- OUTSIDE RECORDS SUMMARY | 2022-05-24 11:49 | XMS_ITS | Encounter Summary ---
:1950 Author Organization [place] Address [address] [place] [address]. [place] [address] Care Team Providers Name Role Phone Momo Forbes Primary Care Provider Reason for Visit Reason Onset Date Comments Transplant 04/20/2016 refill Encounter Details Date Type Department Care Team Description 04/20/2016 Refill [facility] Joseph Quintana, Transplant (refill) Transplant Clinic [address] [place] [phone] [place] [address] (Wo rk) Social History Tobacco [...] documented in this encounter Care Teams Security Representative Relationship Specialty Start Date End Date Momo Forbes PCP - General Family Practice 01/02/14 [facility] [address] [place] [address] documented as of this encounter
--- OUTSIDE RECORDS SUMMARY | 2022-05-24 11:49 | XMS_ITS | Encounter Summary ---
:1950 Author Organization [place] Address [address] [place] [address]. [place] [address] Care Team Providers Name Role Phone Momo Forbes Primary Care Provider Reason for Visit Reason Onset Date Comments Transplant 02/06/2016 refill Encounter Details Date Type Department Care Team Description 02/06/2016 Refill [facility] Cristy Chen LPN T ransplant (refill) Transplant Clinic [address] [place] [phone] Social History Tobacco Use Types Packs/Day [...] transplant documented in this encounter Care Teams Research Leader Relationship Specialty Start Date End Date Momo Forbes PCP - General Family Practice 01/02/14 [facility] 1999 [place] [address] documented as of this encounter
--- OUTSIDE RECORDS SUMMARY | 2022-05-24 11:49 | XMS_ITS | Encounter Summary ---
:1950 Author Organization [place] Address [address] [place] [address] Care Team Providers Name Role Phone ForbesMomo santiago A Primary Care Provider Encounter Details Date Type Department Care Team Description 02/20/2016 Orders Only [facility] Mariano, Joseph Perdomo isael, [facility] jm MICHELE 500 [facility] 717 [place], [place] [phone] [address] [place] [address] [place] [address] (Wo rk) Social History Tobacco [...] (ABNORMAL) Tacrolimus level (03/17/2016 10:44 AM CDT) [facility] Method Time Signature Tacrolimus Last 2100 [facility] Dose 03/16/16 [facility] Tacrolimus 4.2 (L) 5.0 [facility] Level 15.0 ug/L [facility] Comment: Tacrolimus Reference Range [...] Phon e Number [facility] 500 [place], [place] [phone] [place] [address] documented in this encounter Visit Diagnoses Not on filedocumented in this encounter Care Teams Senior Analytic Consultant Relationship Specialty Start Date End Date Momo Forbes PCP - General Family Practice 01/02/14 [facility] [address] [place] [address] documented as of this encounter
--- OUTSIDE RECORDS SUMMARY | 2022-05-24 11:49 | XMS_ITS | Encounter Summary ---
:1950 Author Organization [place] Address [address] [place] [address]. [address] Care Team Providers Name Role Phone Momo Forbes Primary Care Provider Reason for Visit Reason Onset Date Comments Transplant 01/16/2016 refill Encounter Details Date Type Department Care Team Description 01/16/2016 Refill The Transplant Deysi Burns MD Transplant (refill) 2nd Floor, Clinic [phone] [place] [address] [facility] [phone] Social History Tobacco Use Types Packs/Day [...] transplant documented in this encounter Care Teams Knit Goods Cutter Hand Relationship Specialty Start Date End Date Momo Forbes PCP - General Family Practice 01/02/14 [facility] 1999 [place], [place] [phone] documented as of this encounter
--- OUTSIDE RECORDS SUMMARY | 2022-05-24 11:49 | XMS_ITS | Encounter Summary ---
:1950 Author Organization [place] Address [address] [place] [address] Care Team Providers Name Role Phone Ingrid Santana RN Unavailable Unavailable Momo Forbes Primary Care Provider Encounter Details Date Type Department Care Team Description 07/22/2015 Orders Only [facility] Dereck Dangelo MD [facility] Laborato ry 420 [facility] 195 500 [place], [place] [phone] [place] [phone] Social History Tobacco Use Types Packs/Day Years [...] PM R esults for this MASS SPECTROMETRY PATENT PROSECUTION PARALEGAL procedure are in the results section. documented in this encounter Results Tacrolimus level (08/12/2015 4:35 PM PATENT PROSECUTION PARALEGAL) [facility] Method Time Signature Tacrolimus Last 0700 [facility] Dose 08/12/15 [facility] Tacrolimus 5.3 5.0 [facility] Level 15.0 ug/L [facility] Comment: Tacrolimus Reference Range Kidney [...] Volume Laterality 08/12/2015 4:35 PM 5 9:11 PATENT PROSECUTION PARALEGAL AM PATENT PROSECUTION PARALEGAL Mingo Dangelo MD LAB - BLOOD ORDERABLES Performing Organization Address City/State/ZIP Code Phon e Number [facility] [address] documented in this encounter Visit Diagnoses Not on filedocumented in this encounter Care Teams Club Manager Relationship Specialty Start Date End Date Momo Forbes PCP - General Family Practice 01/02/14 [facility] [address] [place] [address] Ingrid Santana, RN Registered Nurse Transplant 02/10/12 documented as of this encounter
--- OUTSIDE RECORDS SUMMARY | 2022-05-24 11:49 | XMS_ITS | Encounter Summary ---
:1950 Author Organization [place] Address [facility] [place] [address] Care Team Providers Name Role Phone Ingrid Santana RN Unavailable Unavailable Momo Forbes Primary Care Provider Joseph Quintana MD Unavailable Encounter Details Date Type Department Care Team Description 08/14/2015 External Order Results [facility] Trans[facility] nter Nurse, [facility] 2nd Floor, Clinic [address]A [address] [phone] Social History Tobacco Use Types Packs/Day Years [...] 4:41 PM Results f or this RESULTS ASSEMBLING MACHINE OPERATOR procedure are i n the results section. documented in this encounter Results (ABNORMAL) TXP External Lab Result (08/12/2015 4:41 PM ASSEMBLING MACHINE OPERATOR) Analysis Performed At Patho logist [...] 59 (L) >60 LABDE SCAN (if mL/min/1.7 Somali) 3/m2 (External) GFR Estimated 48 (L) >60 [...] / / Volume Laterality 08/12/2015 4:41 PM ASSEMBLING MACHINE OPERATOR Narrative JESSICA [facility] - 08/14/2015 9:25 AM ASSEMBLING MACHINE OPERATOR Verified by Freddy Mehta on 08/14. Patient Reported LABORATORY Performing Organization Address City/State/ZIP Code Phon e Number [facility]DE [facility] documented in this encounter Visit Diagnoses Not on filedocumented in this encounter Care Teams Leather Lacer Relationship Specialty Start Date End Date Momo Forbes PCP - General Family Practice 01/02/14 [facility] [address] [place] [address] Ingrid Santana, RN Registered Nurse Transplant 02/10/12 Joseph Quintana, Assigned Nephrology 03/29/21 MD Provider [address] [place] [address] 1932 [place] [address] documented as of this encounter
--- OUTSIDE RECORDS SUMMARY | 2022-05-24 11:49 | XMS_ITS | Encounter Summary ---
:1950 Author Organization [place] Address [address] [place] [address]. [place] [address] Care Team Providers Name Role Phone Ingrid Santana RN Unavailable Unavailable Momo Forbes Primary Care Provider Encounter Details Date Type Department Care Team Description 08/29/2015 Orders Only The Transplant Deepa Morgan Aftercare following organ tr ansplant (Primary Dx); 2nd Floor, Clinic 2A Saima Kidney replaced by transplan t; Tommy Wilburn [facility] er for long-term current use of medication [address] [phone] Social History Tobacco Use Types Packs/Day Years [...] edication documented in this encounter Care Teams Office System Analyst Relationship Specialty Start Date End Date Momo Forbes PCP - General Family Practice 01/02/14 [facility] [address] [place] [address] Ingrid Santana, RN Registered Nurse Transplant 02/10/12 documented as of this encounter
--- OUTSIDE RECORDS SUMMARY | 2022-05-24 11:49 | XMS_ITS | Encounter Summary ---
:1950 Author Organization [place] Address [facility] [place] [address] Care Team Providers Name Role Phone Ingrid Santana RN Unavailable Unavailable Momo Forbes Primary Care Provider Reason for Visit Reason Onset Date Comments Refill Request 06/23/2015 amlodipine Encounter Details Date Type Department Care Team Description 06/23/2015 Refill [facility] [address] Refill Request Physicians Orestes Hernandez MD (amlodipine) Tm[facility] Building [place] 4th Floor, Clinic 4B [address] [phone] (Wo rk) [phone] Social History Tobacco Use Types Packs/Day Years [...] # refills: 3 Last Office Visit with [facility] primary care provider: 05/14/2014 Future Office Visit: BP Readings from Last 3 Encounters: 05/14/14 141/65 05/13/14 139/73 04/09/14 163/78 [facility] [phone] GER RFID documented in this encounter Plan of Treatment Not on filedocumented as of this encounter Visit Diagnoses Diagnosis HTN (hypertension) - Primary Unspecified essential hypertension documented in this encounter Care Teams Senior Case Manager Relationship Specialty Start Date End Date Momo Forbes PCP - General Family Practice 01/02/[address] [address] Ingrid Santana, RN Registered Nurse Transplant 02/10/12 documented as of this encounter
--- OUTSIDE RECORDS SUMMARY | 2022-05-24 11:49 | XMS_ITS | Encounter Summary ---
:1950 Author Organization [place] Address [address] [place] [address]. [place] [address] Care Team Providers Name Role Phone Momo Forbes Primary Care Provider Reason for Visit Reason Onset Date Comments Transplant 02/19/2016 refill Encounter Details Date Type Department Care Team Description 02/19/2016 Refill The Transplant Deysi Burns MD Transplant (refill) 2nd Floor, Clinic [address]A [phone] [place] [address] [place] [address] Social History Tobacco Use Types [...] documented in this encounter Care Teams Car Escort Relationship Specialty Start Date End Date Momo Forbes PCP - General Family Practice 01/02/14 [facility] 1999 [place], [place] [phone] documented as of this encounter
--- OUTSIDE RECORDS SUMMARY | 2022-05-24 11:49 | XMS_ITS | Encounter Summary ---
:1950 Author Organization [place] Address [facility] [place] [address] Care Team Providers Name Role Phone Forbes, Ton Primary Care Provider Reason for Visit Reason Comments RECHECK 6 mo follow up,christiano cruz Encounter Details Date Type Department Care Team Description 04/20/2016 Office Visit [facility] Chucho Joshi, Renal hypertension, stage 1-4 or unspecified chronic kidney disease (Primary Dx); Nephrology Clinic Reactive depression; [address] Thrombocytopenia (H) 909 [facility] RANJAN [address] [place] [phone] Social History Tobacco Use Types Packs/Day [...] Body Mass Index 41.55 09/02/2015 4:32 PM REFINERY OPERATOR documented in this encounter Progress Notes [...] encounter Results Folate RBC (10/25/2016 3:54 PM REFINERY OPERATOR) athologist Signature HCT Within 46.0 % [address] Folate RBC 663 ng/mL [facility] Comment: Reference range: >=366 (Note) Performed by [employer], [address] [facility] [address] [email or web address], Geoff Reed MD, Lab. Director Specimen Anatomical Collection Method Collection Time Receive d Time (Source) Location / / Volume Laterality Blood specimen 10/25/2016 3:54 PM 017 3:55 (specimen) REFINERY OPERATOR PM REFINERY OPERATOR Chucho Joshi MD LAB - BLOOD ORDERABLES Performing Organization Address City/State/[facility] Code Phon e Number [address] [address] [facility] documented in this encounter Visit Diagnoses Diagnosis Renal hypertension, stage 1-4 or unspeci fied chronic kidney disease - Primary Reactive depression Dysthymic disorder Thrombocytopenia (H) Thrombocytopenia, unspecified documented in this encounter Care Teams Complex Commercial Litigation Paralegal Relationship Specialty Start Date End Date Momo Forbes PCP - General Family Practice 01/02/[address] [address] documented as of this encounter
--- OUTSIDE RECORDS SUMMARY | 2022-05-24 11:49 | XMS_ITS | Encounter Summary ---
:1950 Author Organization [place] Address [address] [place] [address]. [place] [address] Care Team Providers Name Role Phone Momo Forbes Primary Care Provider Reason for Visit Reason Onset Date Comments Transplant 02/19/2016 refill Encounter Details Date Type Department Care Team Description 02/19/2016 Refill The Transplant Deysi Burns MD Transplant (refill) 2nd Floor, Clinic [address]A [phone] [place] [address] [facility] [place] [address] Social History Tobacco Use Types [...] transplant documented in this encounter Care Teams Cloth Bin Packer Relationship Specialty Start Date End Date Momo Forbes PCP - General Family Practice 01/02/14 [facility] 1999 [place], [place] [phone] documented as of this encounter
--- OUTSIDE RECORDS SUMMARY | 2022-05-24 11:49 | XMS_ITS | Encounter Summary ---
:1950 Author Organization [place] Address [facility] [place] [address] Care Team Providers Name Role Phone Leidy Momo He Primary Care Provider Reason for Visit Reason Onset Date Comments Transplant 03/30/2016 refill Encounter Details Date Type Department Care Team Description 03/30/2016 Refill The Transplant Deysi Burns MD Transplant (refill) 2nd Floor, Clinic [address]A [phone] [place] [address] [facility] [place] [phone] Social History Tobacco Use [...] Date: 02/19/16 Quantity: 240 Thanks!! Janelle Jackson [facility] documented in this encounter Plan of Treatment Not on filedocumented as of this encounter Visit Diagnoses Diagnosis Kidney transplanted - Primary Kidney replaced by transplant documented in this encounter Care Teams Sales Merchandise Associate Relationship Specialty Start Date End Date Momo Forbes PCP - General Family Practice 01/02/[address] [address] documented as of this encounter
--- OUTSIDE RECORDS SUMMARY | 2022-05-24 11:49 | XMS_ITS | Encounter Summary ---
:1950 Author Organization [place] Address [address] [place] [address]. [place] [address] Care Team Providers Name Role Phone Momo Forbes Primary Care Provider Reason for Visit Reason Onset Date Comments Transplant 03/15/2016 refill Encounter Details Date Type Department Care Team Description 03/15/2016 Refill [facility] Cristy Chen LPN T ransplant (refill) Transplant Clinic [address] [place] [phone] Social History Tobacco Use Types Packs/Day [...] transplant documented in this encounter Care Teams Geoscientist Relationship Specialty Start Date End Date Momo Forbes PCP - General Family Practice 01/02/14 [facility] [address] [place] [address] documented as of this encounter
--- OUTSIDE RECORDS SUMMARY | 2022-05-24 11:50 | XMS_ITS | Encounter Summary ---
:1950 Author Organization [place] Address [address] [place] [address]. [place] [address] Care Team Providers Name Role Phone Ingrid Santana RN Unavailable Unavailable Momo Forbes Primary Care Provider Encounter Details Date Type Department Care Team Description 08/03/[address] [facility] r 2nd Floor, Clinic 2A [place] [phone] Social History Tobacco Use Types Packs/Day [...] on filedocumented in this encounter Care Teams Strip Deburrer Relationship Specialty Start Date End Date Momo Forbes PCP - General Family Practice 01/02/14 [facility] [address] [place] [address] Ingrid Santana RN Registered Nurse Transplant 02/10/12 documented as of this encounter
--- OUTSIDE RECORDS SUMMARY | 2022-05-24 11:50 | XMS_ITS | Encounter Summary ---
:1950 Author Organization [place] Address [facility] [place] [address] Care Team Providers Name Role Phone Ingrid Santana RN Unavailable Unavailable Momo Forbes Primary Care Provider Joseph Quintana MD Unavailable Encounter Details Date Type Department Care Team Description 06/24/2014 External Order Results The Transplant Ce nter Nurse, [facility] 2nd Floor, Clinic [address]A [address] [phone] Social History Tobacco Use Types Packs/Day Years [...] 8:37 AM Results f or this RESULTS RAMP ATTENDANT procedure are i n the results section. documented in this encounter Results (ABNORMAL) TXP External Lab Result (06/24/2014 8:37 AM RAMP ATTENDANT) Analysis Performed At Patho logist Time [...] 54 (L) >60 LABDE SCAN (if ml/min/1.7 Fijian) 3m2 (External) GFR Estimated 44 (L) >60 [...] / / Volume Laterality 06/24/2014 8:37 AM RAMP ATTENDANT Narrative JESSICA PFT - 06/24/2014 2:52 PM RAMP ATTENDANT Verified by Sofie Verdin on 4. Patient Reported LABORATORY Performing Organization Address City/State/ZIP Code Phon e Number [facility] LABDE SCAN documented in this encounter Visit Diagnoses Not on filedocumented in this encounter Care Teams Chef Saucier Relationship Specialty Start Date End Date Momo Forbes PCP - General Family Practice 01/02/14 [facility] [address] [place] [address] Ingrid Santana, RN Registered Nurse Transplant 02/10/12 Joseph Quintana, Assigned Nephrology 03/29/21 MD Provider [address] [place] [address] [address] [place] [address] documented as of this encounter
--- OUTSIDE RECORDS SUMMARY | 2022-05-24 11:50 | XMS_ITS | Encounter Summary ---
:1950 Author Organization [place] Address [facility]0 [facility] [place] [address] Care Team Providers Name Role Phone Ingrid Santana RN Unavailable Unavailable Momo Forbes Primary Care Provider Joseph Quintana MD Unavailable Encounter Details Date Type Department Care Team Description 08/06/2014 External Order Results The Transplant Ce nter Nurse, [facility] 2nd Floor, Clinic [address] [phone] Social History Tobacco Use Types Packs/Day Years [...] 8:39 AM Results f or this RESULTS METAL HANDLER procedure are i n the results section. documented in this encounter Results (ABNORMAL) TXP External Lab Result (08/05/2014 8:39 AM METAL HANDLER) Analysis Performed At Patho logist Time Signature [...] 55 (L) >60 LABDE SCAN (if ml/min/1.7 Tuvaluan) 3m2 (External) GFR Estimated 45 (L) >60 [...] / / Volume Laterality 08/05/2014 8:39 AM METAL HANDLER Narrative JESSICA PFT - 08/06/2014 7:40 AM METAL HANDLER Verified by Mary Whitehead on 08/06/2014. Patient Reported LABORATORY Performing Organization Address City/State/ZIP Code Phon e Number [facility] LABDE SCAN documented in this encounter Visit Diagnoses Not on filedocumented in this encounter Care Teams Cereal Miller Relationship Specialty Start Date End Date Momo Forbes PCP - General Family Practice 01/02/14 [facility] [address] [place] [address] Ingrid Santana, RN Registered Nurse Transplant 02/10/12 Joseph Quintana, Assigned Nephrology 03/29/21 MD Provider [address] [place] [address] [address] [place] [address] documented as of this encounter
--- OUTSIDE RECORDS SUMMARY | 2022-05-24 11:50 | XMS_ITS | Encounter Summary ---
:1950 Author Organization [place] Address [address] [place] [address] Care Team Providers Name Role Phone Ingrid Santana RN Unavailable Unavailable Momo Forbes Primary Care Provider Reason for Visit Reason Onset Date Comments Medication Question 09/12/2014 Encounter Details Date Type Department Care Team Description 09/12/2014 Telephone PHARMACY Beny Staton RPH Medication Question 500 [facility] [place] [address] PHARMACY [phone] [place] [address] Social History Tobacco Use Types [...] dr told himhis bp was good. T END MECHANIC documented in this encounter Plan of Treatment Not on filedocumented as of this encounter Visit Diagnoses Not on filedocumented in this encounter Care Teams Pension Examiner Relationship Specialty Start Date End Date Momo Forbes PCP - General Family Practice 01/02/14 [facility] [address] [place] [address] Ingrid Santana, RN Registered Nurse Transplant 02/10/12 documented as of this encounter
--- OUTSIDE RECORDS SUMMARY | 2022-05-24 11:50 | XMS_ITS | Encounter Summary ---
:1950 Author Organization [place] Address [facility] [place] [address] Care Team Providers Name Role Phone Ingrid Santana RN Unavailable Unavailable Momo Forbes Primary Care Provider Joseph Quintana MD Unavailable Encounter Details Date Type Department Care Team Description 07/03/2014 External Order Results The Transplant Ce nter Nurse, [facility] 2nd Floor, Clinic [address] [phone] Social History Tobacco Use Types Packs/Day Years [...] 8:27 AM Results f or this RESULTS ORTHOTIC/PROSTHETIC CLINICIAN procedure are i n the results section. documented in this encounter Results (ABNORMAL) TXP External Lab Result (07/01/2014 8:27 AM ORTHOTIC/PROSTHETIC CLINICIAN) Analysis Performed At Patho logist Time Signature [...] / / Volume Laterality 07/01/2014 8:27 AM ORTHOTIC/PROSTHETIC CLINICIAN Narrative JESSICA PFT - 07/03/2014 2:18 PM ORTHOTIC/PROSTHETIC CLINICIAN Verified by Xiomara Bello on 07/03/20 14. Patient Reported LABORATORY Performing Organization Address City/State/ZIP Code Phon e Number [facility] LABDE SCAN documented in this encounter Visit Diagnoses Not on filedocumented in this encounter Care Teams Filtration Plant Operator Relationship Specialty Start Date End Date Momo Forbes PCP - General Family Practice 01/02/14 [facility] [address] [place] [address] Ingrid Santana, RN Registered Nurse Transplant 02/10/12 Joseph Quintana, Assigned Nephrology 03/29/21 MD Provider [address] [place] [address] [address] [place] [address] documented as of this encounter
--- OUTSIDE RECORDS SUMMARY | 2022-05-24 11:50 | XMS_ITS | Encounter Summary ---
:1950 Author Organization [place] Address [facility]0 [facility] [place] [address] Care Team Providers Name Role Phone Ingrid Santana RN Unavailable Unavailable Momo Forbes Primary Care Provider Joseph Quintana MD Unavailable Encounter Details Date Type Department Care Team Description 07/25/2014 External Order Results The Transplant Ce nter Nurse, [facility] 2nd Floor, Clinic [address]A [address] [phone] Social History Tobacco Use Types Packs/Day Years [...] 8:22 AM Results f or this RESULTS SIDE HEMMER procedure are i n the results section. documented in this encounter Results (ABNORMAL) TXP External Lab Result (07/22/2014 8:22 AM SIDE HEMMER) Analysis Performed At Patho logist Time Signature [...] 52 (L) >60 LABDE SCAN (if ml/min/1.7 Zimbabwean) 3m2 (External) GFR Estimated 43 (L) >60 [...] / / Volume Laterality 07/22/2014 8:22 AM SIDE HEMMER Narrative MARLENEE PFT - 07/25/2014 6:19 AM SIDE HEMMER Verified by Janee Alexis on 07/25/2014 . Patient Reported LABORATORY Performing Organization Address City/State/ZIP Code Phon e Number [facility] LABDE SCAN documented in this encounter Visit Diagnoses Not on filedocumented in this encounter Care Teams Medical Imaging Specialist Relationship Specialty Start Date End Date Momo Forbes PCP - General Family Practice 01/02/14 [facility] [address] [place] [address] Ingrid Santana, RN Registered Nurse Transplant 02/10/12 Joseph Quintana, Assigned Nephrology 03/29/21 MD Provider [address] [place] [address] [address] [place] [address] documented as of this encounter
--- OUTSIDE RECORDS SUMMARY | 2022-05-24 11:50 | XMS_ITS | Encounter Summary ---
:1950 Author Organization [place] Address [facility] [place] [address] Care Team Providers Name Role Phone Ingrid Santana RN Unavailable Unavailable Momo Forbes Primary Care Provider Reason for Visit Reason Onset Date Comments Transplant 06/20/2014 FK 6.6 Encounter Details Date Type Department Care Team Description 06/20/2014 Telephone Nephrology Carmelita Roasrio, Transplant (FK 6.6) 2nd Floor, Clinic 2A [place] [phone] Social History Tobacco Use Types Packs/Day [...] documented in this encounter Care Teams Display Decorator Relationship Specialty Start Date End Date Momo Forbes PCP - General Family Practice 01/02/[address] [address] Ingrid Santana RN Registered Nurse Transplant 02/10/12 documented as of this encounter
--- OUTSIDE RECORDS SUMMARY | 2022-05-24 11:50 | XMS_ITS | Encounter Summary ---
:1950 Author Organization [place] Address [address] [place] [address] Care Team Providers Name Role Phone Ingrid Santana RN Unavailable Unavailable Momo Forbes Primary Care Provider Encounter Details Date Type Department Care Team Description 09/22/2014 Orders Only [facility] Spong, Joseph Conor isael, [facility] 500 [facility] [address] [place] [phone] [place] [address] [address] [place] [address] (Wo rk) Social History Tobacco [...] AM R esults for this MASS SPECTROMETRY SUPERVISOR SPECIAL EDUCATION procedure are in the results section. TACROLIMUS BY TANDEM Routine 10/03/2014 8:30 AM R esults for this MASS SPECTROMETRY SUPERVISOR SPECIAL EDUCATION procedure are in the results section. documented in this encounter Results Tacrolimus level (10/17/2014 8:15 AM SUPERVISOR SPECIAL EDUCATION) [facility] gist Method Time Signature Tacrolimus Last 2029 [facility] Dose 10/16/14 [facility] Tacrolimus 9.2 5.0 - [facility] Level 15.0 ug/L [facility] Comment: Tacrolimus Reference [...] / Volume Laterality 10/17/2014 8:15 AM 5 SUPERVISOR SPECIAL EDUCATION 11:17 AM SUPERVISOR SPECIAL EDUCATION Mingo Dangelo MD LAB - BLOOD ORDERABLES Performing Organization Address City/State/ZIP Code Phon e Number [facility] 500 [place] [address] [facility] Tacrolimus level (10/03/2014 8:30 AM SUPERVISOR SPECIAL EDUCATION) [facility] gist Method Time Signature Tacrolimus Last 10/02/14 [facility] Dose 2030 [facility] Tacrolimus 7.4 5.0 - [facility] Level 15.0 ug/L [facility] Comment: Tacrolimus Reference [...] / Volume Laterality 10/03/2014 8:30 AM 5 SUPERVISOR SPECIAL EDUCATION 11:09 AM SUPERVISOR SPECIAL EDUCATION Mingo Dangelo MD LAB - BLOOD ORDERABLES Performing Organization Address City/State/ZIP Code Phon e Number [facility] [address] documented in this encounter Visit Diagnoses Not on filedocumented in this encounter Care Teams Orientor Relationship Specialty Start Date End Date Momo Forbes PCP - General Family Practice 01/02/14 [facility] [address] [place] [address] Ingrid Santana, RN Registered Nurse Transplant 02/10/12 documented as of this encounter
--- OUTSIDE RECORDS SUMMARY | 2022-05-24 11:50 | XMS_ITS | Encounter Summary ---
:1950 Author Organization [place] Address [facility] [address] Care Team Providers Name Role Phone Ingrid Santana RN Unavailable Unavailable Momo Forbes Primary Care Provider Reason for Visit Reason Onset Date Comments Transplant 12/31/2014 Encounter Details Date Type Department Care Team Description 12/31/2014 Telephone [facility] Transplant [facility] [address] [place] [phone] Social History Tobacco Use Types Packs/Day [...] in this encounter Care Teams Sales And Production Manager Relationship Specialty Start Date End Date Forbes, Ton PCP - General Family Practice 01/02/14 [facility] [address] [place] [address] Ingrid Santana, RN Registered Nurse Transplant 02/10/12 documented as of this encounter
--- OUTSIDE RECORDS SUMMARY | 2022-05-24 11:50 | XMS_ITS | Encounter Summary ---
:1950 Author Organization [place] Address [facility] [place] [address] Care Team Providers Name Role Phone Ingrid Santana RN Unavailable Unavailable Momo Forbes Primary Care Provider Reason for Visit Reason Onset Date Comments Transplant 08/08/2014 immunosuppression ma neil Encounter Details Date Type Department Care Team Description 08/08/2014 Refill Nephrology Shiva Kahn tanyard worker 2nd Floor, Clinic 2A [facility] (immunosuppression Sanders Wangensteen [address] [facility] management) Building [address] [place] [address] [phone] Social History Tobacco Use Types Packs/Day Years [...] to lower Prograf dose to 1.5mg BID. SFORMER COIL WINDER Telephone Encounter - Shiva Kahn RN - 08/08/2014 5:33 PM CST ISSUE: Tacrolimus level 9.0. New target tacrolimus levels 6-8 since patient is now 6 months post kidney transplant. PLAN: Decrease Prograf dose from 2 mg twice daily to 1.5 mg twice daily. TASK: Please call patient with instructions for dose change. 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
--- OUTSIDE RECORDS SUMMARY | 2022-05-24 11:50 | XMS_ITS | Encounter Summary ---
:1950 Author Organization [place] Address [address] [place] [address] Care Team Providers Name Role Phone Ingrid Santana RN Unavailable Unavailable Momo Forbes Primary Care Provider Encounter Details Date Type Department Care Team Description 08/22/2014 Orders Only [facility], Joseph Conor isael, [facility] 500 [facility] [address] [place] [address] [phone] [place] [address] 003 [place] [address] (Wo rk) Social History Tobacco [...] Res ults for this MASS SPECTROMETRY AM RADIO PROGRAM CHECKER procedure are in the results section. documented in this encounter Results Tacrolimus level (08/26/2014 10:21 AM RADIO PROGRAM CHECKER) [facility] Method Time Signature Tacrolimus Last 01/04/[address] Tacrolimus 6.6 5.0 [facility] Level 15.0 ug/L [facility] Comment: Tacrolimus Reference Range Kidney Transplant [...] / Volume Laterality 08/26/2014 10:21 08/28/2014 AM RADIO PROGRAM CHECKER 11:34 AM RADIO PROGRAM CHECKER Mingo Dangelo MD LAB - BLOOD ORDERABLES Performing Organization Address City/State/ZIP Code Phon e Number [facility] [address] documented in this encounter Visit Diagnoses Not on filedocumented in this encounter Care Teams Teacher Of Gifted Students Relationship Specialty Start Date End Date Momo Forbes PCP - General Family Practice 01/02/14 [facility] [address] [place] [address] Ingrid Santana, RN Registered Nurse Transplant 02/10/12 documented as of this encounter
--- OUTSIDE RECORDS SUMMARY | 2022-05-24 11:50 | XMS_ITS | Encounter Summary ---
:1950 Author Organization [place] Address [facility] [place] [place] [address] Care Team Providers Name Role Phone Ingrid Santana RN Unavailable Unavailable Momo Forbes Primary Care Provider Reason for Visit Reason Onset Date Comments Refill Request 02/10/2015 mycophenolate, smz/t mp Encounter Details Date Type Department Care Team Description 02/10/2015 Refill The Transplant Deysi Burns, Refill Request 2nd Floor, Clinic 2A MD (mycophenolate, Sanders Wangensteen [facility] smz/tmp) Building [address] [place] [id number] [place] [address] [place] [phone] Social History Tobacco Use Types [...] Fill Date: 01/09/15 Last Fill Quantity: 240 [id number] Last Fill Date: 01/09/15 Last Fill Quantity: 31 Gayathri Orta [facility] [address] [place] [phone] documented in this encounter Plan of Treatment Not on filedocumented as of this encounter Visit Diagnoses Diagnosis S/P kidney transplant - Primary Kidney replaced by transplant documented in this encounter Care Teams Air Bag Curer Relationship Specialty Start Date End Date Momo Forbes PCP - General Family Practice 01/02/[address] [address] Ingrid Santana, RN Registered Nurse Transplant 02/10/12 documented as of this encounter
--- OUTSIDE RECORDS SUMMARY | 2022-05-24 11:50 | XMS_ITS | Encounter Summary ---
:1950 Author Organization [place] Address [facility] [place] [address] Care Team Providers Name Role Phone Ingrid Santana RN Unavailable Unavailable Momo Forbes Primary Care Provider Encounter Details Date Type Department Care Team Description 10/18/2014 External Order Results The Transplant Ce ntjakob Nurse, [facility] 2nd Floor, Clinic [address]A [address] [place] [phone] Social History Tobacco Use Types [...] 8:15 AM Results f or this RESULTS ASSESSMENT MANAGER procedure are i n the results section. documented in this encounter Results (ABNORMAL) TXP External Lab Result (10/17/2014 8:15 AM ASSESSMENT MANAGER) Analysis Performed At Patho logist Time [...] 56 (L) >60 LABDE SCAN (if ml/min/1.7 Venezuelan) 3m2 (External) GFR Estimated 46 (L) >60 [...] / / Volume Laterality 10/17/2014 8:15 AM ASSESSMENT MANAGER Narrative JESSICA PFT - 10/18/2014 8:50 AM ASSESSMENT MANAGER Verified by Maribel Plunkett on 10/18/19 15. Patient Reported LABORATORY Performing Organization Address City/State/ZIP Code Phon e Number [facility] LABDE SCAN documented in this encounter Visit Diagnoses Not on filedocumented in this encounter Care Teams Flower Cutter Relationship Specialty Start Date End Date Forbes, Ton PCP - General Family Practice 01/02/14 [facility] [address] [place] [id number] Ingrid Santana, RN Registered Nurse Transplant 02/10/12 documented as of this encounter
--- OUTSIDE RECORDS SUMMARY | 2022-05-24 11:50 | XMS_ITS | Encounter Summary ---
:1950 Author Organization [place] Address [facility] [place] [address] Care Team Providers Name Role Phone Ingrid Santana RN Unavailable Unavailable Momo Forbes Primary Care Provider Joseph Quintana MD Unavailable Encounter Details Date Type Department Care Team Description 08/28/2014 External Order Results The Transplant Ce nter Nurse, [facility] 2nd Floor, Clinic [address]A [address] [phone] Social History Tobacco Use Types Packs/Day Years [...] 08/26/2014 10:25 AM Results for this RESULTS PC ANALYST procedure are i n the results section. documented in this encounter Results (ABNORMAL) TXP External Lab Result (08/26/2014 10:25 AM PC ANALYST) Analysis Performed At Patho logist Time Signature [...] 58 (L) >60 LABDE SCAN (if ml/min/1.7 Nepalese) 3m2 (External) GFR Estimated 48 (L) >60 [...] / / Volume Laterality 08/26/2014 10:25 AM PC ANALYST Narrative JESSICA PFT - 08/28/2014 4:34 PM PC ANALYST Verified by Freddy Mehta on 08/28. Patient Reported LABORATORY Performing Organization Address City/State/ZIP Code Phon e Number [facility] LABDE SCAN documented in this encounter Visit Diagnoses Not on filedocumented in this encounter Care Teams Open Hearth Helper Relationship Specialty Start Date End Date Momo Forbes PCP - General Family Practice 01/02/14 [facility] [address] [place] [address] Ingrid Santana, RN Registered Nurse Transplant 02/10/12 Joseph Quintana, Assigned Nephrology 8/8/21 MD Provider 7 [facility] 353 [facility] [address] [place], [place] [address] documented as of this encounter
--- OUTSIDE RECORDS SUMMARY | 2022-05-24 11:50 | XMS_ITS | Encounter Summary ---
:1950 Author Organization [place] Address [address] [place] [address] Care Team Providers Name Role Phone Ingrid Santana RN Unavailable Unavailable Momo Forbes Primary Care Provider Encounter Details Date Type Department Care Team Description 06/22/2014 Orders Only [facility] Spong, Joseph Ocnor isael, [facility] 500 [facility] [address] [place] [address] [phone] [place] [address] 771 [place] [address] (Wo rk) Social History Tobacco [...] R esults for this MASS SPECTROMETRY SUPERVISOR SHIPPING procedure are in the results section. TACROLIMUS BY TANDEM Routine 07/08/2014 8:15 AM R esults for this MASS SPECTROMETRY SUPERVISOR SHIPPING procedure are in the results section. TACROLIMUS BY TANDEM Routine 07/01/2014 8:25 AM R esults for this MASS SPECTROMETRY SUPERVISOR SHIPPING procedure are in the results section. TACROLIMUS BY TANDEM Routine 06/24/2014 8:30 AM R esults for this MASS SPECTROMETRY SUPERVISOR SHIPPING procedure are in the results section. documented in this encounter Results Tacrolimus level (07/15/2014 8:25 AM SUPERVISOR SHIPPING) [facility] Method Time Signature Tacrolimus Last 07/14/14 [facility] Dose 2000 [facility] Tacrolimus 8.1 5.0 - [facility] Level 15.0 ug/L [facility] [...] / Volume Laterality 07/15/2014 8:25 AM 4 SUPERVISOR SHIPPING 10:56 AM SUPERVISOR SHIPPING Deysi Alicea MD LAB - BLOOD ORDERABLES Performing Organization Address City/State/ZIP Code Phon e Number [facility] 500 [place], [place] [id number] [place] [address] [facility] Tacrolimus level (07/08/2014 8:15 AM SUPERVISOR SHIPPING) [facility] gist Method Time Signature Tacrolimus Last 1999 [facility] Dose 07/07/14 [facility] Tacrolimus 8.6 5.0 - [facility] Level 15.0 ug/L [facility] [...] / Volume Laterality 07/08/2014 8:15 AM 4 SUPERVISOR SHIPPING 11:03 AM SUPERVISOR SHIPPING Deysi Alicea MD LAB - BLOOD ORDERABLES Performing Organization Address City/State/ZIP Code Phon e Number [facility] 500 [place], [place] [phone] [place] [address] [facility] Tacrolimus level (07/01/2014 8:25 AM SUPERVISOR SHIPPING) [facility] gist Method Time Signature Tacrolimus Last 1999, [facility] Dose 06/30/14 [facility] Tacrolimus 9.3 5.0 - [facility] Level 15.0 ug/L [facility] [...] / Volume Laterality 07/01/2014 8:25 AM 4 SUPERVISOR SHIPPING 12:11 PM SUPERVISOR SHIPPING Mingo Dangelo MD LAB - BLOOD ORDERABLES Performing Organization Address City/State/ZIP Code Phon e Number [facility] 500 [place] [address] [facility] Tacrolimus level (06/24/2014 8:30 AM SUPERVISOR SHIPPING) [facility] gist Method Time Signature Tacrolimus Last 1999 [facility] Dose 06/23/14 [facility] Tacrolimus 10.5 5.0 - [facility] Level 15.0 ug/L [facility] [...] / Volume Laterality 06/24/2014 8:30 AM 4 SUPERVISOR SHIPPING 11:18 AM SUPERVISOR SHIPPING Deysi Alicea MD LAB - BLOOD ORDERABLES Performing Organization Address City/State/ZIP Code Phon e Number [facility] 500 [place] [address] [facility] documented in this encounter Visit Diagnoses Not on filedocumented in this encounter Care Teams Title Closer Relationship Specialty Start Date End Date Momo Forbes PCP - General Family Practice 01/02/14 [facility] 1999 [place] [address] Ingrid Santana, RN Registered Nurse Transplant 02/10/12 documented as of this encounter
--- OUTSIDE RECORDS SUMMARY | 2022-05-24 11:50 | XMS_ITS | Encounter Summary ---
:1950 Author Organization [place] Address [address] [place] [address] Care Team Providers Name Role Phone Ingrid Santana RN Unavailable Unavailable Momo Forbes Primary Care Provider Encounter Details Date Type Department Care Team Description 10/20/2014 Orders Only [facility] Spong, Joseph Conor isael, [facility] 500 [facility] [address] [place] [address] [phone] [place] [address] 589 [place] [address] (Wo rk) Social History Tobacco [...] Results Tacrolimus level (11/05/2014 8:29 AM CDT) [facility] Method Time Signature Tacrolimus Last 2029, [facility] Dose 11/04/14 [facility] Tacrolimus 7.7 5.0 - [facility] Level 15.0 ug/L [facility] Comment: Tacrolimus Reference Range Kidney Transplant [...] Phon e Number [facility] [address] documented in this encounter Visit Diagnoses Not on filedocumented in this encounter Care Teams Molasses Coloring Operator Relationship Specialty Start Date End Date Momo Forbes PCP - General Family Practice 01/02/14 [facility] 1999 [place] [address] Ingrid Santana, RN Registered Nurse Transplant 02/10/12 documented as of this encounter
--- OUTSIDE RECORDS SUMMARY | 2022-05-24 11:50 | XMS_ITS | Encounter Summary ---
:1950 Author Organization [place] Address [facility] [place] [address] Care Team Providers Name Role Phone Ingrid Santana RN Unavailable Unavailable Momo Forbes Primary Care Provider Joseph Quintana MD Unavailable Encounter Details Date Type Department Care Team Description 11/07/2014 External Order Results The Transplant Ce nter Nurse, [facility] 2nd Floor, Clinic [address] [phone] Social History Tobacco Use Types Packs/Day Years [...] filedocumented in this encounter Care Teams Pump Machine Operator Relationship Specialty Start Date End Date Momo Forbes PCP - General Family Practice 01/02/14 [facility] 1999 [place] [address] Ingrid Santana, RN Registered Nurse Transplant 02/10/12 Joseph Quintana, Assigned Nephrology 03/29/21 MD Provider [address] [place] [address] 1932 [place], [place] [address] documented as of this encounter
--- OUTSIDE RECORDS SUMMARY | 2022-05-24 11:50 | XMS_ITS | Encounter Summary ---
:1950 Author Organization [place] Address [facility] [place] [address] Care Team Providers Name Role Phone Ingrid Santana RN Unavailable Unavailable Momo Forbes Primary Care Provider Joseph Quintana MD Unavailable Encounter Details Date Type Department Care Team Description 07/31/2014 External Order Results The Transplant Ce nter Nurse, [facility] 2nd Floor, Clinic [address]A [address] [place] [phone] Social History Tobacco Use Types Packs/Day Years [...] 8:25 AM Results f or this RESULTS LIFE INSURANCE SALES procedure are i n the results section. documented in this encounter Results (ABNORMAL) TXP External Lab Result (07/29/2014 8:25 AM LIFE INSURANCE SALES) [facility] Method Time Signature Sodium (External) [...] / / Volume Laterality 07/29/2014 8:25 AM LIFE INSURANCE SALES Narrative [facility] - 07/31/2014 2:47 PM LIFE INSURANCE SALES Verified by Nazia Duncan on 07/31/2014. Verified by Freddy Mehta on 07/31. Patient Reported LABORATORY Performing Organization Address City/State/ZIP Code Phon e Number [facility] LABDE SCAN documented in this encounter Visit Diagnoses Not on filedocumented in this encounter Care Teams Relief Map Modeler Relationship Specialty Start Date End Date Momo Forbes PCP - General Family Practice 01/02/14 [facility] 1999 [place] [address] Ingrid Santana, RN Registered Nurse Transplant 02/10/12 Joseph Quintana, Assigned Nephrology 03/29/21 MD Provider [address] [place] [address] [address] [place] [address] documented as of this encounter
--- OUTSIDE RECORDS SUMMARY | 2022-05-24 11:50 | XMS_ITS | Encounter Summary ---
:1950 Author Organization [place] Address [facility] [place] [address] Care Team Providers Name Role Phone Ingrid Santana RN Unavailable Unavailable Momo Forbes Primary Care Provider Encounter Details Date Type Department Care Team Description 12/27/2014 External Order Results The Transplant Ce ntjakob Nurse, [facility] 2nd Floor, Clinic [address]A [address] [place] [address] Social History Tobacco Use Types [...] External Lab Result (12/25/2014 9:48 AM CDT) [facility] Method Time Signature Sodium 138 135 [...] 51 (L) >60 LABDE SCAN (if ml/min/1. Iraqi) 73m2 (External) GFR Estimated 42 (L) >60 [...] filedocumented in this encounter Care Teams Grocery Packer Relationship Specialty Start Date End Date Momo Forbes PCP - General Family Practice 01/02/14 [place] [id number] Ingrid Santana, RN Registered Nurse Transplant 02/10/12 documented as of this encounter
--- OUTSIDE RECORDS SUMMARY | 2022-05-24 11:50 | XMS_ITS | Encounter Summary ---
:1950 Author Organization [place] Address [address] [place] [address] Care Team Providers Name Role Phone Ingrid Santana RN Unavailable Unavailable Momo Forbes Primary Care Provider Reason for Visit Reason Onset Date Comments Medication Question 10/11/2014 Encounter Details Date Type Department Care Team Description 10/11/2014 Telephone PHARMACY Beny Staton RPH Medication Question 500 [facility] [place] [address] PHARMACY [phone] [place] [address] Social History Tobacco Use Types [...] activity before he checks it. Beny Staton [facility] Specialty Pharmacist [phone] DE TRUCKER documented in this encounter Plan of Treatment Not on filedocumented as of this encounter Visit Diagnoses Not on filedocumented in this encounter Care Teams Abrasive Worker Relationship Specialty Start Date End Date Momo Forbes PCP - General Family Practice 01/02/[address] [address] Ingrid Santana, RN Registered Nurse Transplant 02/10/12 documented as of this encounter
--- OUTSIDE RECORDS SUMMARY | 2022-05-24 11:50 | XMS_ITS | Encounter Summary ---
:1950 Author Organization [place] Address [address] [place] [address] Care Team Providers Name Role Phone Ingrid Santana RN Unavailable Unavailable Momo Forbes Primary Care Provider Reason for Visit Reason Onset Date Comments Medication Question 01/17/2015 Encounter Details Date Type Department Care Team Description 01/17/2015 Telephone PHARMACY Beny Staton RPH Medication Question 500 [facility] [place] [address] PHARMACY [phone] [place] [address] Social History Tobacco Use Types [...] keep better tabs. His last to in [place] were good but that was 8 months ago. Beny Staton [facility] Specialty Pharmacist [phone] documented in this encounter Plan of Treatment Not on filedocumented as of this encounter Visit Diagnoses Not on filedocumented in this encounter Care Teams Piano Tuner Relationship Specialty Start Date End Date Momo Forbes PCP - General Family Practice 01/02/14 [facility] [address] [place] [address] Ingrid Santana, RN Registered Nurse Transplant 02/10/12 documented as of this encounter
--- OUTSIDE RECORDS SUMMARY | 2022-05-24 11:50 | XMS_ITS | Encounter Summary ---
:1950 Author Organization [place] Address [facility] [place] [address] Care Team Providers Name Role Phone Ingrid Santana RN Unavailable Unavailable Momo Forbes Primary Care Provider Joseph Quintana MD Unavailable Encounter Details Date Type Department Care Team Description 07/10/2014 External Order Results The Transplant Ce nter Nurse, [facility] 2nd Floor, Clinic [address]A [address] [phone] Social History Tobacco Use Types Packs/Day Years [...] 8:17 AM Results f or this RESULTS MARINE EQUIPMENT ENGINEER procedure are i n the results section. documented in this encounter Results (ABNORMAL) TXP External Lab Result (07/08/2014 8:17 AM MARINE EQUIPMENT ENGINEER) Analysis Performed At Patho logist Time [...] Estimated >60 >60 LABDE SCAN (if ml/min/1.7 Sudanese) 3m2 (External) GFR Estimated 51 (L) >60 [...] / / Volume Laterality 07/08/2014 8:17 AM MARINE EQUIPMENT ENGINEER Narrative [facility] - 07/10/2014 6:20 AM MARINE EQUIPMENT ENGINEER Verified by Janee Alexis on 07/10/2014 . Patient Reported LABORATORY Performing Organization Address City/State/ZIP Code Phon e Number [facility] LABDE SCAN documented in this encounter Visit Diagnoses Not on filedocumented in this encounter Care Teams Smoking Pipe Maker Relationship Specialty Start Date End Date Momo Forbes PCP - General Family Practice 01/02/14 [facility] 1999 [place] [address] Ingrid Santana, RN Registered Nurse Transplant 02/10/12 Joseph Quintana, Assigned Nephrology 03/29/21 MD Provider [address] [place] [address] 1932 [place] [address] documented as of this encounter
--- OUTSIDE RECORDS SUMMARY | 2022-05-24 11:50 | XMS_ITS | Encounter Summary ---
:1950 Author Organization [place] Address [address] [place] [address] Care Team Providers Name Role Phone Ingrid Santana RN Unavailable Unavailable Momo Forbes Primary Care Provider Encounter Details Date Type Department Care Team Description 12/20/2014 Orders Only [facility] Spong, Joseph Conor isael, [facility] 500 [facility] [address] [place] [address] [phone] [place] [address] 788 [place] [address] (Wo rk) Social History Tobacco [...] Results Tacrolimus level (12/25/2014 9:45 AM CDT) [facility] Method Time Signature Tacrolimus Last 12/24/14 [facility] Dose 2[address] [facility] Tacrolimus 9.5 5.0 - [facility] 15.0 ug/L [facility] Comment: Tacrolimus Reference Range Kidney [...] its perform ance characteristics determined by the [facility], ??Special Chemistry Laboratory. It has [...] Code Phon e Number [facility] [address] documented in this encounter Visit Diagnoses Not on filedocumented in this encounter Care Teams Fire Management Specialist Relationship Specialty Start Date End Date Momo Forbes PCP - General Family Practice 01/02/14 [facility] 1999 [place] [address] Ingrid Santana, RN Registered Nurse Transplant 02/10/12 documented as of this encounter
--- OUTSIDE RECORDS SUMMARY | 2022-05-24 11:50 | XMS_ITS | Encounter Summary ---
:1950 Author Organization [place] Address [facility] [place] [address] Care Team Providers Name Role Phone Ingrid Santana RN Unavailable Unavailable Momo Forbes Primary Care Provider Reason for Visit Reason Onset Date Comments Refill Request 09/06/2014 [facility] Encounter Details Date Type Department Care Team Description 09/06/2014 Refill The Transplant Deysi Burns, Refill Request ([facility] 2nd Floor, Clinic 2A MD Plus) Tommy Wilburn [phone] [place] [address] [place] [address] Social History Tobacco Use Types [...] Fill Date: 02/08/14 Quantity: 100 Michael Manuel [facility] [phone] [place] documented in this encounter Plan of Treatment Not on filedocumented as of this encounter Visit Diagnoses Diagnosis S/P kidney transplant - Primary Kidney replaced by transplant documented in this encounter Care Teams Supply Chain Consultant Relationship Specialty Start Date End Date Momo Forbes PCP - General Family Practice 01/02/14 [place] [id number] Ingrid Santana, RN Registered Nurse Transplant 02/10/12 documented as of this encounter
--- OUTSIDE RECORDS SUMMARY | 2022-05-24 11:50 | XMS_ITS | Encounter Summary ---
:1950 Author Organization [place] Address [address] [place] [address]. [place] [address] Care Team Providers Name Role Phone Ingrid Santana RN Unavailable Unavailable Momo Forbes Primary Care Provider Reason for Visit Reason Onset Date Comments Refill Request 04/21/2015 crestor Encounter Details Date Type Department Care Team Description 04/21/2015 Refill [facility] [address] Refill Request Physicians Orestes Hernandez MD (crestor) [facility] [place] 4th Floor, Clinic 4B [address] [phone] (Wo rk) [address] [phone] Social History Tobacco Use Types Packs/Day Years [...] # refills: 11 Last Office Visit with [facility] [place] primary care provider: 05/14/14 CHOL 126 02/06/2014 HDL 35 02/06/2014 LDL 71 02/06/2014 TRIG 100 02/06/2014 CHOLHDLRATIO 3.6 02/06/2014 Gayathri [facility] 7[address] [facility] [address] documented in this encounter Plan of Treatment Not on filedocumented as of this encounter Visit Diagnoses Diagnosis DM (diabetes mellitus), type 2 (H) - Ana ashley Type II or unspecified type diabetes aung litus without mention of complication, not stated as uncontrolled Other and unspecified hyperlipidemia documented in this encounter Care Teams Engraver Automatic Relationship Specialty Start Date End Date Momo Forbes PCP - General Family Practice 01/02/[address] [address] Ingrid Santana, RN Registered Nurse Transplant 02/10/12 documented as of this encounter
--- OUTSIDE RECORDS SUMMARY | 2022-05-24 11:50 | XMS_ITS | Encounter Summary ---
:1950 Author Organization [place] Address [facility] [place] [address] Care Team Providers Name Role Phone Ingrid Santana RN Unavailable Unavailable Momo Forbes Primary Care Provider Joseph Quintana MD Unavailable Encounter Details Date Type Department Care Team Description 02/03/2015 External Order Results The Transplant Ce nter Nurse, [facility] 2nd Floor, Clinic [address]A [address] [phone] Social History Tobacco Use Types Packs/Day Years [...] External Lab Result (01/28/2015 8:56 AM CDT) [facility] Method Time Signature Sodium (External) 140 [...] on filedocumented in this encounter Care Teams Mixing Tumbler Operator Relationship Specialty Start Date End Date Momo Forbes PCP - General Family Practice 01/02/14 [facility] 1999 [place] [address] Ingrid Santana, RN Registered Nurse Transplant 02/10/12 Joseph Quintana, Assigned Nephrology 03/29/21 MD Provider [address] [place] [address] 1932 [place], [place] [address] documented as of this encounter
--- OUTSIDE RECORDS SUMMARY | 2022-05-24 11:50 | XMS_ITS | Encounter Summary ---
:1950 Author Organization [place] Address [facility] [place] [address] Care Team Providers Name Role Phone Ingrid Santana RN Unavailable Unavailable Momo Forbes Primary Care Provider Reason for Visit Reason Onset Date Comments Medication Question 07/26/2014 Encounter Details Date Type Department Care Team Description 07/26/2014 Telephone PHARMACY Duncan, Fina, H Medication Question 500 [facility] [address] 711 [facility] [phone] [place] [address] Social History Tobacco Use Types [...] very well healthy and happy Beny Staton [facility] Specialty Pharmacist [phone] ING AGENCY MANAGER documented in this encounter Plan of Treatment Not on filedocumented as of this encounter Visit Diagnoses Not on filedocumented in this encounter Care Teams Ordnance Engineer Relationship Specialty Start Date End Date Momo Forbes PCP - General Family Practice 01/02/14 [facility] [address] [place] [address] Ingrid Santana, RN Registered Nurse Transplant 02/10/12 documented as of this encounter
--- OUTSIDE RECORDS SUMMARY | 2022-05-24 11:50 | XMS_ITS | Encounter Summary ---
:1950 Author Organization [place] Address [facility] [place] [address] Care Team Providers Name Role Phone Ingrid Santana RN Unavailable Unavailable Momo Forbes Primary Care Provider Encounter Details Date Type Department Care Team Description 10/04/2014 External Order Results The Transplant Ce ntjakob Nurse, [facility] 2nd Floor, Clinic [address]A [address] [place] [address] Social History Tobacco Use Types [...] 8:33 AM Results f or this RESULTS ORTHOPEDIC SHOE MAKER procedure are i n the results section. documented in this encounter Results (ABNORMAL) TXP External Lab Result (10/03/2014 8:33 AM ORTHOPEDIC SHOE MAKER) Analysis Performed At Patho logist Time [...] 57 (L) >60 LABDE SCAN (if ml/min/1.7 Monegasque) 3m2 (External) GFR Estimated 47 (L) >60 [...] / / Volume Laterality 10/03/2014 8:33 AM ORTHOPEDIC SHOE MAKER Narrative [facility] - 10/04/2014 8:51 AM ORTHOPEDIC SHOE MAKER Verified by Josseline Palma on 5. Patient Reported LABORATORY Performing Organization Address City/State/ZIP Code Phon e Number [facility] LABDE SCAN documented in this encounter Visit Diagnoses Not on filedocumented in this encounter Care Teams Stained Glass Glazier Relationship Specialty Start Date End Date Momo Forbes PCP - General Family Practice 01/02/14 [facility] [address] [place] [address] Ingrid Santnaa, RN Registered Nurse Transplant 02/10/12 documented as of this encounter
--- OUTSIDE RECORDS SUMMARY | 2022-05-24 11:50 | XMS_ITS | Encounter Summary ---
:1950 Author Organization [place] Address [facility] [place] [address] Care Team Providers Name Role Phone Ingrid Santana RN Unavailable Unavailable Momo Forbes Primary Care Provider Encounter Details Date Type Department Care Team Description 12/30/2014 Orders Only The Transplant Shiva Arias RN -donor kidney 2nd Floor, Clinic 2A [facility] transplant recipient Tommy Guillermoteen [address] [facility] EMER[facility]ENC[facility]PARTMENT (Primary Dx) Building [address] [place] [address] [place] [address] Social History Tobacco Use [...] transplant documented in this encounter Care Teams Ob Scrub Tech Relationship Specialty Start Date End Date Momo Forbes PCP - General Family Practice 01/02/[address] [address] Ingrid Santana, RN Registered Nurse Transplant 02/10/12 documented as of this encounter
--- OUTSIDE RECORDS SUMMARY | 2022-05-24 11:50 | XMS_ITS | Encounter Summary ---
:1950 Author Organization [place] Address [address] [place] [address] Care Team Providers Name Role Phone Ingrid Santana RN Unavailable Unavailable Momo Forbes Primary Care Provider Encounter Details Date Type Department Care Team Description 07/22/2014 Orders Only LTAC, located within [facility] Spong, Joseph Conor isael, [facility] 500 [facility] [address] [place] [phone] [place] [address] 626 [place] [address] (Wo rk) Social History Tobacco [...] AM Resul ts for this SINGLE ANTIGEN PROCESS COORDINATOR procedure are in the results section. HLA LUKASZ CLASS I Routine 07/29/2014 8:20 AM Result s for this SINGLE ANTIGEN PROCESS COORDINATOR procedure are in the results section. TACROLIMUS BY TANDEM Routine 07/29/2014 8:20 AM R esults for this MASS SPECTROMETRY PROCESS COORDINATOR procedure are in the results section. TACROLIMUS BY TANDEM Routine 07/22/2014 8:20 AM R esults for this MASS SPECTROMETRY PROCESS COORDINATOR procedure are in the results section. documented in this encounter Results HLA Lukasz Class II Single Antigen (07/29/2014 8:20 AM PROCESS COORDINATOR) [facility] Method Time Signature SA2 Test SA [...] Volume Laterality 07/29/2014 8:20 AM 4 3:26 PROCESS COORDINATOR PM PROCESS COORDINATOR Deysi Alicea MD LAB - IMMUNOLOGY ORDERABLES Performing Organization Address City/State/ZIP Code Phon e Number [facility] Immunology/Histocompatabil [place], [place] [address] [facility] [address], Room 3-580 HISTOTRAC HLA Lukasz Class I Single Antigen (07/29/2014 8:20 AM PROCESS COORDINATOR) [facility] Method Time Signature SA1 Test SA [...] Volume Laterality 07/29/2014 8:20 AM 4 3:26 PROCESS COORDINATOR PM PROCESS COORDINATOR Deysi Alicea MD LAB - IMMUNOLOGY ORDERABLES Performing Organization Address City/State/ZIP Code Phon e Number [facility] Immunology/Histocompatabil [place], [place] [address] [facility] [address] Building, Room 3-580 HISTOTRAC Tacrolimus level (07/29/2014 8:20 AM PROCESS COORDINATOR) [facility] gist Method Time Signature Tacrolimus Last 1999 [facility] Dose 07/28/14 [facility] Tacrolimus 10.5 5.0 - [facility] Level 15.0 ug/L [facility] Comment: Tacrolimus Reference Range [...] / Volume Laterality 07/29/2014 8:20 AM 4 PROCESS COORDINATOR 11:17 AM PROCESS COORDINATOR Deysi Alicea MD LAB - BLOOD ORDERABLES Performing Organization Address City/State/ZIP Code Phon e Number [facility] [address] [place] [address] [facility] Tacrolimus level (07/22/2014 8:20 AM PROCESS COORDINATOR) [facility] Method Time Signature Tacrolimus Last 1929 [facility] Dose 07/21/14 [facility] Tacrolimus 10.8 5.0 - [facility] Level 15.0 ug/L [facility] Comment: Tacrolimus Reference Range [...] / Volume Laterality 07/22/2014 8:20 AM 4 PROCESS COORDINATOR 11:45 AM PROCESS COORDINATOR Deysi Alicea MD LAB - BLOOD ORDERABLES Performing Organization Address City/State/ZIP Code Phon e Number [facility] [address] [place], [place] [phone] [place] [address] LABS documented in this encounter Visit Diagnoses Not on filedocumented in this encounter Care Teams Fitness And Wellness Instructor Relationship Specialty Start Date End Date Momo Forbes PCP - General Family Practice 01/02/14 [facility] 1999 [place] [address] Ingrid Santana, RN Registered Nurse Transplant 02/10/12 documented as of this encounter
--- OUTSIDE RECORDS SUMMARY | 2022-05-24 11:50 | XMS_ITS | Encounter Summary ---
:1950 Author Organization [place] Address [facility] [place] [address] Care Team Providers Name Role Phone Ingrid Santana RN Unavailable Unavailable Momo Forbes Primary Care Provider Joseph Quintana MD Unavailable Encounter Details Date Type Department Care Team Description 07/17/2014 External Order Results The Transplant Ce nter Nurse, [facility] 2nd Floor, Clinic [address] [phone] Social History Tobacco Use Types Packs/Day Years [...] 8:28 AM Results f or this RESULTS MULTIPLE NEEDLE STITCHER procedure are i n the results section. documented in this encounter Results (ABNORMAL) TXP External Lab Result (07/15/2014 8:28 AM MULTIPLE NEEDLE STITCHER) Analysis Performed At Patho logist Time Signature [...] 60 (L) >60 LABDE SCAN (if ml/min/1.7 Colombian) 3m2 (External) GFR Estimated 49 (L) >60 [...] / / Volume Laterality 07/15/2014 8:28 AM MULTIPLE NEEDLE STITCHER Narrative [facility] - 07/17/2014 8:35 AM MULTIPLE NEEDLE STITCHER Verified by Maribel Plunkett on 07/17/20 14. Patient Reported LABORATORY Performing Organization Address City/State/ZIP Code Phon e Number [facility] LABDE SCAN documented in this encounter Visit Diagnoses Not on filedocumented in this encounter Care Teams Industrial Spraypainter Relationship Specialty Start Date End Date Momo Forbes PCP - General Family Practice 01/02/14 [facility] [address] [place] [address] Ingrid Santana, RN Registered Nurse Transplant 02/10/12 Joseph Quintana, Assigned Nephrology 03/29/21 MD Provider [address] [place] [address] [address] [place] [address] documented as of this encounter
--- OUTSIDE RECORDS SUMMARY | 2022-05-24 11:51 | XMS_ITS | Encounter Summary ---
:1950 Author Organization [place] Address [facility] [place] [address] Care Team Providers Name Role Phone Ingrid Santana RN Unavailable Unavailable Momo Forbes Primary Care Provider Reason for Visit Reason Onset Date Comments Pre Visit Planning - Done 05/13/2014 6 week f/u pos t op afib. medication changes last visit. Encounter Details Date Type Department Care Team Description 05/13/2014 PRE VISIT [facility] [address] Pre Visit Planning - Physicians Orestes Hernandez MD Done (6 week f/u post [facility] op afib. medication Building [place] changes last visit. ) 4th Floor, Clinic 4B [phone] [place] [address] (Wo rk) [phone] [phone] Social History Tobacco Use Types Packs/Day Years [...] on filedocumented in this encounter Care Teams Barrelhead Inspector Relationship Specialty Start Date End Date Momo Forbes PCP - General Family Practice 01/02/14 [facility] [address] [place] [phone] Ingrid Santana, RN Registered Nurse Transplant 02/10/12 documented as of this encounter
--- OUTSIDE RECORDS SUMMARY | 2022-05-24 11:51 | XMS_ITS | Encounter Summary ---
:1950 Author Organization [place] Address Critical access hospital0 [facility] [place] [address] Care Team Providers Name Role Phone Ingrid Santana RN Unavailable Unavailable Momo Forbes Primary Care Provider Reason for Visit Reason Comments Heart Problem 6 week F/U Encounter Details Date Type Department Care Team Description 05/14/2014 [facility] [place] [facility] Joseph Hernandez, shanon carey (Primary Heart MD Dx) [facility] Building [facility] 4th Floor, Clinic 4B [address] [phone] [place], [place] (Work) [address] [phone] Social History Tobacco Use Types Packs/Day Years [...] questions or concerns. 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
--- OUTSIDE RECORDS SUMMARY | 2022-05-24 11:51 | XMS_ITS | Encounter Summary ---
:1950 Author Organization [place] Address [address] [place] [address] Care Team Providers Name Role Phone Ingrid Santana RN Unavailable Unavailable Momo Forbes Primary Care Provider Reason for Visit Auth/Cert - Closed Specialty Diagnoses / Procedures Referred By Contact Refer red To Contact Surgery Diagnoses S/P Kidney Transplant Uu Periop Procedures COMBINED CYSTOSCOPY, REMOVE STENT(S) 500 [place] [address] Phone: Fax: Referral ID Status Reason Start Date Expiration Date Visits Requ ested Visits Authorized [id number] Closed 1 1 Encounter Details Date Type Department Care Team Description 04/01/2014 Surgery [facility] Migel Merchant Romoval of Right Double PeriOp Services J Stent 500 [facility] [address] [place] [address] [place] [address] [place] [address] (Wo rk) Surgery Details Date/Time Status Location [...] Scott RN - 04/01/2014 10:15 AM CDT [facility] [place] Same-Day Surgery Adult Discharge Orders & Instructions [...] To contact a doctor, call or: ??? [phone] and ask for the resident mental hygiene consultant for (answered 24 hours a day) ??? Emergency Department: [facility]: [phone] (TTY for hearing impaired: [phone]) documented in this encounter Medications at Time [...] CDT 10:15 AM CDT Migel LARES - [facility] POCT Performing Organization Address City/State/ZIP Code Phon e Number [facility]V POINT OF CARE TEST, GLUCOSE POINT OF CARE TEST, GLUCOSE Urine culture (04/01/2014 9:00 AM CDT) Component Value Ref Test Analysis Performed At [facility] gist Range Method Time Signature Specimen Unspecified [facility] Description Urine CAMPUS LABS Special Specimen [facility] Requests received in MICROBIOLOGY preservative Culture Micro No growth [facility] MICROBIOLOGY Micro Report FINAL [facility] Status 04/02/2014 MICROBIOLOGY Specimen Anatomical Collection Method Collection Time Receive d Time (Source) Location / / Volume Laterality 04/01/2014 9:00 AM 4 9:18 CDT AM CDT Migel Merchant MD LAB - MICRO GENERAL ORDERABL ES Performing Organization Address City/[facility]/ZIP Code Phon e Number [facility] [address] UNIVERSITY CAMPUS LABS [facility] MICROBIOLOGY (ABNORMAL) UA with Microscopic (04/01/2014 9:00 AM CDT) Component Value Ref Test Analysis Performed At Patholo gist Range Method Time Signature Color Urine Yellow [facility] Appearance Urine Clear [facility] UNIVERSITY C[facility] LABS Glucose Urine 30 (A) NEG [facility] mg/dL UNIVERSITY CAMPUS LABS Bilirubin Urine Negative NEG [facility] UNIVERSITY CAMP[facility] LABS Ketones Urine Negative NEG [facility] mg/dL UNIVERSITY CAMPUS LABS Specific [place] 1.017 1.003 - [facility] Urine 1.035 UNIVERSITY [...] Phon e Number [facility] [address] [facility] UNIVERSITY CAMPUS LABS (ABNORMAL) INR [...] Phon e Number [facility] [address] LABS EKG 12-lead, tracing only (04/01/2014 8:28 AM CDT) [facility] gist Method Time Signature Interpretation ECG Click View RADIOLOGY Image link RESULTS to view waveform and result Specimen (Source) Anatomical Collection Method Collection Time Re ceived Time Location / / Volume Laterality 04/01/2014 8:28 AM CDT Momo Jimenez MD ECG ORDERABLES Performing Organization Address City/State/ZIP Code Phon e Number RADIOLOGY RESULTS Potassium (04/01/2014 8:11 AM CDT) athologist [facility] Potassium 4.1 3.4 - 5.3 [facility] mmol/L CAMPUS LABS Specimen Anatomical Collection Method Collection Time Receive d Time (Source) Location / / Volume Laterality Blood specimen 04/01/2014 8:11 AM 014 8:27 (specimen) CDT AM CDT Momo Jimenez MD LAB - BLOOD ORDERABLES Performing Organization Address City/State/ZIP Code Phon e Number [facility] [address] LABS (ABNORMAL) Hemoglobin (04/01/2014 8:11 AM CDT) athologist [facility] Hemoglobin 10.2 (L) 13.3 - [facility] 17.7 g/dL CAMPUS LABS Specimen Anatomical Collection Method Collection Time Receive d Time (Source) Location / / Volume Laterality Blood specimen 04/01/2014 8:11 AM 014 8:27 (specimen) CDT AM CDT Momo Jimenez MD LAB - BLOOD ORDERABLES Performing Organization Address City/[facility]/ZIP Code Phon e Number [address] LABS (ABNORMAL) Glucose by meter (04/01/2014 8:02 AM CDT) athologist Signature Glucose 158 (H) 60 - 99 POINT OF CARE mg/dL TEST, GLUCOSE Specimen Anatomical Collection Method Collection Time Receive d Time (Source) Location / / Volume Laterality 04/01/2014 8:02 AM 4 8:05 CDT AM CDT Migel Merchant MD LAB - [facility] POCT Performing Organization Address City/State/ZIP Code [...] 0850 (Given - Provider: Addis Brannon APRN COMPLIANCE ASSOCIATE - Comment: Asked by Fellow to give after UA done. ) Routine, 500 mg, Intravenous, 30 MIN PRE -OP, Starting on Tue04/01/14 at 0747, For 1 dose, Administer in or after urine culture Administer at a rate of no greater than 100mL/hr, Indications: Perioperative Pharmacoprophylaxis, Pre-procedure PRN Medication Order 03/30/2014 03/31/2014 04/01/2014 lidocaine 2 % (Uro-Jet) jelly (CANCELED) 0858 (Given - Provider: Celina Cloe MD) PRN, Starting Tue04/01/14 at 0858, Intra-procedure documented in this encounter Care Teams Pediatric Oncology Nurse Relationship Specialty Start Date End Date Momo Forbes PCP - General Family Practice 01/02/14 [facility] [address] [place] [address] Ingrid Santana, RN Registered Nurse Transplant 02/10/12 documented as of this encounter
--- OUTSIDE RECORDS SUMMARY | 2022-05-24 11:51 | XMS_ITS | Encounter Summary ---
:1950 Author Organization [place] Address [address] [place] [address]. [place] [address] Care Team Providers Name Role Phone Ingrid Santana RN Unavailable Unavailable Momo Forbes Primary Care Provider Encounter Details Date Type Department Care Team Description 05/20/2014 External Order Results The Transplant Ce ntjakob Nurse, [facility] 2nd Floor, Clinic [address]A [address] [place] [address] Social History Tobacco Use Types [...] 55 (L) >60 LABDE SCAN (if ml/min/1.7 Prydeinig) 3m2 (External) GFR Estimated 46 (L) >60 [...] filedocumented in this encounter Care Teams Painter Railroad Car Relationship Specialty Start Date End Date Momo Forbes PCP - General Family Practice 01/02/14 [place] [phone] Ingrid Santana, RN Registered Nurse Transplant 02/10/12 documented as of this encounter
--- OUTSIDE RECORDS SUMMARY | 2022-05-24 11:51 | XMS_ITS | Encounter Summary ---
:1950 Author Organization [place] Address [facility] [place] [address] Care Team Providers Name Role Phone Ingrid Santana RN Unavailable Unavailable Momo Forbes Primary Care Provider Reason for Visit Reason Onset Date Comments Anticoagulation 04/01/2014 Encounter Details Date Type Department Care Team Description 04/01/2014 Telephone [facility] Joseph Levine , Anticoagulation Anticoagulation Clin ic [facility] [address] [place], [place] [address] [facility] [phone] [place] [address] 812 [place], [place] [phone] (Wo rk) Social History Tobacco Use Types [...] Notes Telephone Encounter - Joseph Levine, [facility] - 04/01/2014 5:22 PM CDT INR today [...] in this encounter Care Teams Director Of Physiotherapy Services Relationship Specialty Start Date End Date Momo Forbes PCP - General Family Practice 01/02/[address] [address] Ingrid Santana, RN Registered Nurse Transplant 02/10/12 documented as of this encounter
--- OUTSIDE RECORDS SUMMARY | 2022-05-24 11:51 | XMS_ITS | Encounter Summary ---
:1950 Author Organization [place] Address [facility] [place] [address] Care Team Providers Name Role Phone Ingrid Santana RN Unavailable Unavailable Momo Forbes Primary Care Provider Reason for Visit Reason Onset Date Comments Patient Reminder 05/09/2014 Encounter Details Date Type Department Care Team Description 05/09/2014 Telephone Nephrology Yesenia Clements CMA Patient Reminder 2nd Floor, Clinic 2A [place] [phone] Social History Tobacco Use Types Packs/Day [...] filedocumented in this encounter Care Teams Aviation Ordnance Officer Relationship Specialty Start Date End Date Momo Forbes PCP - General Family Practice 01/02/14 [facility] [address] [place] [phone] Ingrid Santana, RN Registered Nurse Transplant 02/10/12 documented as of this encounter
--- OUTSIDE RECORDS SUMMARY | 2022-05-24 11:51 | XMS_ITS | Encounter Summary ---
:1950 Author Organization [place] Address [facility] [place] [address] Care Team Providers Name Role Phone Ingrid Santana RN Unavailable Unavailable Momo Forbes Primary Care Provider Reason for Visit Reason Onset Date Comments Pre Visit Planning - Done 04/08/2014 2 m f/u Post o p AFIB s/p DCCV. on warfarin 4 weeks Encounter Details Date Type Department Care Team Description 04/08/2014 PRE VISIT [facility] ER [address] Pre Visit Planning - Physicians Heart MD David Done (2 m f/u Post op [facility] AF IB s/p DCCV. on [facility] warfarin 4 weeks) 4th Floor, Clinic 4B [phone] [place] [address] (Wo rk) [address] [phone] Social History Tobacco Use Types Packs/Day Years [...] on filedocumented in this encounter Care Teams Slope Hoist Operator Relationship Specialty Start Date End Date Momo Forbes PCP - General Family Practice 01/02/14 [facility] [address] [place] [phone] Ingrid Santana, RN Registered Nurse Transplant 02/10/12 documented as of this encounter
--- OUTSIDE RECORDS SUMMARY | 2022-05-24 11:51 | XMS_ITS | Encounter Summary ---
:1950 Author Organization [place] Address [address] [place] [address]. [place] [address] Care Team Providers Name Role Phone Ingrid Santana RN Unavailable Unavailable Momo Forbes Primary Care Provider Encounter Details Date Type Department Care Team Description 04/04/2014 Orders Only Nephrology Shiva Kahn RN S/P kidney transplant 2nd Floor, Clinic 2A [facility] [address] [place] [address] [place] [phone] Social History Tobacco Use Types Packs/Day Years [...] transplant documented in this encounter Care Teams Hedge Fund Accountant Relationship Specialty Start Date End Date Momo Forbes PCP - General Family Practice 01/02/14 [facility] [address] [place] [address] Siers, Ingrid A, RN Registered Nurse Transplant 02/10/12 documented as of this encounter
--- OUTSIDE RECORDS SUMMARY | 2022-05-24 11:51 | XMS_ITS | Encounter Summary ---
:1950 Author Organization [place] Address [facility] [address] Care Team Providers Name Role Phone Ingrid Santana RN Unavailable Unavailable Momo Forbes Primary Care Provider Encounter Details Date Type Department Care Team Description 06/10/2014 External Order Results The Transplant Ce ntjakob Nurse, [facility] 2nd Floor, Clinic 2A [address] [place] [address] Social History Tobacco Use Types [...] 60 (L) >60 LABDE SCAN (if ml/min/1.7 Prydeinig) 3m2 (External) GFR Estimated 49 (L) >60 [...] on filedocumented in this encounter Care Teams Gaming Floor Supervisor Relationship Specialty Start Date End Date Momo Forbes PCP - General Family Practice 01/02/14 [facility] [address] [place] [address] Ingrid Santana, RN Registered Nurse Transplant 02/10/12 documented as of this encounter
--- OUTSIDE RECORDS SUMMARY | 2022-05-24 11:51 | XMS_ITS | Encounter Summary ---
:1950 Author Organization [place] Address [address] [place] [address]. [place] [address] Care Team Providers Name Role Phone Ingrid Santana RN Unavailable Unavailable Momo Forbes Primary Care Provider Encounter Details Date Type Department Care Team Description 06/07/2014 External Order Results The Transplant Ce ntjakob Nurse, [facility] 2nd Floor, Clinic [address]A [address] [place] [address] Social History Tobacco Use Types [...] External Lab Result (06/05/2014 8:30 AM CDT) [facility] Method Time Signature Sodium (External) [...] on filedocumented in this encounter Care Teams Flue Cleaner Relationship Specialty Start Date End Date Momo Forbes PCP - General Family Practice 01/02/14 [facility] [address] [place] [address] Ingrid Santana, RN Registered Nurse Transplant 02/10/12 documented as of this encounter
--- OUTSIDE RECORDS SUMMARY | 2022-05-24 11:51 | XMS_ITS | Encounter Summary ---
:1950 Author Organization [place] Address [address] [place] [address]. [place] [address] Care Team Providers Name Role Phone Ingrid Santana RN Unavailable Unavailable Momo Forbes Primary Care Provider Encounter Details Date Type Department Care Team Description 05/17/2014 Orders Only Nephrology Shiva Kahn RN -donor kidney 2nd Floor, Clinic 2A [facility] transplant recipient Tommy Ruizfelisa [address] [place] [address] (Primary Dx) Building [address] [place] [id number] [phone] Social History Tobacco Use Types Packs/Day Years [...] documented in this encounter Care Teams Manager Dairy Relationship Specialty Start Date End Date Momo Forbes PCP - General Family Practice 01/02/14 [facility] [address] [place] [address] Ingrid Santana, RN Registered Nurse Transplant 02/10/12 documented as of this encounter
--- OUTSIDE RECORDS SUMMARY | 2022-05-24 11:51 | XMS_ITS | Encounter Summary ---
:1950 Author Organization [place] Address [facility] [place] [address] Care Team Providers Name Role Phone Ingrid Santana RN Unavailable Unavailable Momo Forbes Primary Care Provider Reason for Visit Reason Comments RECHECK 3 month Tx follow Up Encounter Details Date Type Department Care Team Description 05/13/2014 Office Visit Nephrology Deysi Alicea, DM (diabetes mellitus), type 2 (H) (Primary Dx); 2nd Floor, Clinic 2A MD S/P kidney transplant Tommy Wilburn [address] [phone] (Wo rk) [address] [phone] Social History Tobacco Use Types Packs/Day Years [...] discharged on Cumadin; Cumadin was stopped by dental prosthetist during the follow up visit, as he [...] Years of Education: 14 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
--- OUTSIDE RECORDS SUMMARY | 2022-05-24 11:51 | XMS_ITS | Encounter Summary ---
:1950 Author Organization [place] Address [address] [place] [address]. [place] [address] Care Team Providers Name Role Phone Ingrid Santana RN Unavailable Unavailable Momo Forbes Primary Care Provider Reason for Visit Reason Onset Date Comments Refill Request 04/05/2014 Tamy Cabrera Encounter Details Date Type Department Care Team Description 04/05/2014 Refill The Transplant Migel Martinez, Refill Request 2nd Floor, Clinic 2A (Tommy Cabrera[address] antoprazole) Building [facility] 195 6 [facility] 88 [place] [phone] Social History Tobacco Use Types Packs/Day Years [...] Last Fill: 03/14/14 Qty: 30 [facility] [phone] documented in this encounter Plan of Treatment Not on filedocumented as of this encounter Visit Diagnoses Diagnosis S/P kidney transplant Kidney replaced by transplant Atrial fibrillation (H) Atrial fibrillation documented in this encounter Care Teams Board Setter Relationship Specialty Start Date End Date Momo Forbes PCP - General Family Practice 01/02/14 [facility] 1999 [place] [address] Ingrid Santana, RN Registered Nurse Transplant 02/10/12 documented as of this encounter
--- OUTSIDE RECORDS SUMMARY | 2022-05-24 11:51 | XMS_ITS | Encounter Summary ---
:1950 Author Organization [place] Address [facility]ly [facility] [place] [address] Care Team Providers Name Role Phone Ingrid Santana RN Unavailable Unavailable Momo Forbes Primary Care Provider Joseph Quintana MD Unavailable Encounter Details Date Type Department Care Team Description 05/16/2014 External Order Results The Transplant Ce nter Nurse, [facility] 2nd Floor, Clinic [address]A [address] [phone] Social History Tobacco Use Types Packs/Day Years [...] Estimated >60 >60 LABDE SCAN (if ml/min/1.7 Sri [place]ankan) 3m2 (External) GFR Estimated 52 (L) >60 [...] on filedocumented in this encounter Care Teams Extraction Operator Relationship Specialty Start Date End Date Momo Forbes PCP - General Family Practice 01/02/14 [facility] 1999 [place] [address] Ingrid Santana, RN Registered Nurse Transplant 02/10/12 Joseph Quintana, Assigned Nephrology 03/29/21 MD Provider [address] [place] [address] 1932 [place] [address] documented as of this encounter
--- OUTSIDE RECORDS SUMMARY | 2022-05-24 11:51 | XMS_ITS | Encounter Summary ---
:1950 Author Organization [place] Address [address] [place] [address]. [place] [address] Care Team Providers Name Role Phone Ingrid Santana RN Unavailable Unavailable Momo Forbes Primary Care Provider Encounter Details Date Type Department Care Team Description 05/02/2014 Orders Only Nephrology Shiva Kahn RN -donor kidney 2nd Floor, Clinic 2A [facility] transplant recipient Tommy Ruizteen [address] [place] [address] [place] [phone] Social History Tobacco Use Types Packs/Day Years [...] transplant documented in this encounter Care Teams Kicking Machine Operator Relationship Specialty Start Date End Date Momo Forbes PCP - General Family Practice 01/02/14 [facility] [address] [place] [address] Ingrid Santana, RN Registered Nurse Transplant 02/10/12 documented as of this encounter
--- OUTSIDE RECORDS SUMMARY | 2022-05-24 11:51 | XMS_ITS | Encounter Summary ---
:1950 Author Organization [place] Address [facility] [place] [address] Care Team Providers Name Role Phone Ingrid Santana RN Unavailable Unavailable Momo Forbes Primary Care Provider Encounter Details Date Type Department Care Team Description 06/17/2014 External Order Results The Transplant Ce ntjakob Nurse, [facility] 2nd Floor, Clinic 2A [address] [place] [address] Social History Tobacco Use Types [...] filedocumented in this encounter Care Teams Fuel Storage Technician Relationship Specialty Start Date End Date Momo Forbes PCP - General Family Practice 01/02/14 [place] [id number] Ingrid Santana, RN Registered Nurse Transplant 02/10/12 documented as of this encounter
--- OUTSIDE RECORDS SUMMARY | 2022-05-24 11:51 | XMS_ITS | Encounter Summary ---
:1950 Author Organization [place] Address [facility] [place] [address] Care Team Providers Name Role Phone Ingrid Santana RN Unavailable Unavailable Momo Forbes Primary Care Provider Reason for Visit Reason Comments Heart Problem 2 m f/u Post op AFIB s/p DCC V. on warfarin 4 weeks Encounter Details Date Type Department Care Team Description 04/09/2014 [facility] ([facility] (Primary Dx); [facility] Enrique Maria pecified essential hypertension; Heart Other and unspecified hyperlipidemia; Tommy [facility] DM (diabetes mellitus), type 2 (H) Building [place] 4th Floor, Clinic 4B [address] [facility] [address] [phone] [place], [place] (Work) [address] [phone] Social History Tobacco Use Types Packs/Day Years [...] questions or concerns. 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 Specific [place] Urine 04/01/2014 1.017 1.003 - 1.035 Final [...] NEG Ketones Urine Negative NEG mg/dL Specific [place] Urine 1.017 1.003 - 1.035 Blood Urine [...] uncontrolled documented in this encounter Care Teams Medical Scientific Officer Relationship Specialty Start Date End Date Momo Forbes PCP - General Family Practice 01/02/14 [facility] [address] [place] [address] Ingrid Santana, RN Registered Nurse Transplant 02/10/12 documented as of this encounter
--- OUTSIDE RECORDS SUMMARY | 2022-05-24 11:51 | XMS_ITS | Encounter Summary ---
:1950 Author Organization [place] Address [address] [place] [address]. [place] [address] Care Team Providers Name Role Phone Ingrid Santana RN Unavailable Unavailable Momo Forbes Primary Care Provider Encounter Details Date Type Department Care Team Description 05/10/2014 Orders Only Nephrology Shiva Kahn RN -donor kidney 2nd Floor, Clinic 2A [facility] transplant recipient Tommy Ruizfelisa [address] [place] [address] (Primary Dx) Building [address] [place] [phone] Social History Tobacco Use Types Packs/Day Years [...] transplant documented in this encounter Care Teams Neighborhood Aide Relationship Specialty Start Date End Date Momo Forbes PCP - General Family Practice 01/02/14 [facility] 1999 [place] [address] Ingrid Santana, RN Registered Nurse Transplant 02/10/12 documented as of this encounter
--- OUTSIDE RECORDS SUMMARY | 2022-05-24 11:51 | XMS_ITS | Encounter Summary ---
:1950 Author Organization [place] Address [facility] [place] [address] Care Team Providers Name Role Phone Ingrid Santana RN Unavailable Unavailable Momo Forbes Primary Care Provider Joseph Quitnana MD Unavailable Encounter Details Date Type Department Care Team Description 05/27/2014 External Order Results The Transplant Ce nter Nurse, [facility] 2nd Floor, Clinic 2A [address] [phone] Social History Tobacco Use Types Packs/Day Years [...] Estimated >60 >60 LABDE SCAN (if ml/min/1.7 Montenegrin) 3m2 (External) GFR Estimated 52 (L) >60 [...] Volume Laterality 05/24/2014 8:11 AM CDT Narrative [facility] PFT - 05/27/2014 2:16 PM CDT Verified by Jessica Major on 014. Patient Reported LABORATORY Performing Organization Address City/State/ZIP Code Phon e Number [facility] LABDE SCAN documented in this encounter Visit Diagnoses Not on filedocumented in this encounter Care Teams Gyro Compass Tester Relationship Specialty Start Date End Date Momo Forbes PCP - General Family Practice 01/02/14 [facility] [address] [place] [address] Ingrid Santana, RN Registered Nurse Transplant 02/10/12 Joseph Quintana, Assigned Nephrology 03/29/21 MD Provider [address] [place] [address] 1932 [place] [address] documented as of this encounter
--- OUTSIDE RECORDS SUMMARY | 2022-05-24 11:51 | XMS_ITS | Encounter Summary ---
:1950 Author Organization [place] Address [facility] [place] [address] Care Team Providers Name Role Phone Ingrid Santana RN Unavailable Unavailable Momo Forbes Primary Care Provider Joseph Quintana MD Unavailable Encounter Details Date Type Department Care Team Description 06/08/2014 External Order Results The Transplant Ce nter Nurse, [facility] 2nd Floor, Clinic 2A [address] [phone] Social History Tobacco Use Types Packs/Day Years [...] Family Practice 01/02/14 [facility] [address] [place] [address] Ingrid Santana, RN Registered Nurse Transplant 02/10/12 Joseph Quintana, Assigned Nephrology 03/29/21 MD Provider [address] [place] [address] 1932 [place] [address] documented as of this encounter
--- OUTSIDE RECORDS SUMMARY | 2022-05-24 11:51 | XMS_ITS | Encounter Summary ---
:1950 Author Organization [place] Address [address] [place] [address]. [place] [address] Care Team Providers Name Role Phone Ingrid Santana RN Unavailable Unavailable Momo Forbes Primary Care Provider Encounter Details Date Type Department Care Team Description 05/27/2014 Orders Only Nephrology Shiva Kahn RN -donor kidney 2nd Floor, Clinic 2A [facility] [place] transplant recipient Tommy Ruizteen [address] [place] [address] [place] [phone] Social History Tobacco Use Types Packs/Day Years [...] transplant documented in this encounter Care Teams Waiter/Waitress Third Class Relationship Specialty Start Date End Date Momo Forbes PCP - General Family Practice 01/02/14 [facility] [address] [place] [address] Ingrid Santana, RN Registered Nurse Transplant 02/10/12 documented as of this encounter
--- OUTSIDE RECORDS SUMMARY | 2022-05-24 11:51 | XMS_ITS | Encounter Summary ---
:1950 Author Organization [place] Address [address] [place] [address]. [place] [address] Care Team Providers Name Role Phone Ingrid Santana RN Unavailable Unavailable Momo Forbes Primary Care Provider Reason for Visit Reason Comments RECHECK s/p kidney tx Auth/Cert - Closed Specialty Diagnoses / Procedures Referred By Contact Refer red To Contact Surgery Diagnoses S/P Kidney Transplant Uu Periop Procedures COMBINED CYSTOSCOPY, REMOVE STENT(S) 500 [place] [address] Phone: Fax: Referral ID Status Reason Start Date Expiration Date Visits Requ ested Visits Authorized [id number] Closed 1 1 Encounter Details Date Type Department Care Team Description 04/01/2014 Office Visit Nephrology Deysi Alicea Immunosuppressed status (H) (Primary Dx); 2nd Floor, Clinic MD Aline High risk medication use; 2A [facility] Kidney replaced by homeroan t; Tommy [place] S/P kidney transplant [place] [address] [place] [address] [place], [place] (Work) [address] [phone] Social History Tobacco Use Types Packs/Day Years [...] -no follow up, I will ask his asset coordinator to obtain results from his local [...] at home regularly; BP checked by me [id number]; HE was previously on Metoprolol 12.5 mg [...] Years of Education: 14 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
--- OUTSIDE RECORDS SUMMARY | 2022-05-24 11:51 | XMS_ITS | Encounter Summary ---
:1950 Author Organization [place] Address [address] [place] [address] Care Team Providers Name Role Phone Ingrid Santana RN Unavailable Unavailable Momo Forbes Primary Care Provider Encounter Details Date Type Department Care Team Description 04/22/2014 Orders Only [facility] Spong, Joseph Conor isael, [facility] 500 [facility] [address] [place] [phone] [place] [address] 525 [place] [address] (Wo rk) Social History Tobacco [...] (ABNORMAL) Tacrolimus level (05/17/2014 8:17 AM CDT) [facility] Method Time Signature Tacrolimus Last 05/16/2014 [facility] Dose 2000 [facility] Tacrolimus 4.4 (L) 5.0 - [facility] Level 15.0 ug/L [facility] Comment: Tacrolimus Reference Range [...] Phon e Number [facility] 500 [place], [place] [phone] [place] [address] [facility] (ABNORMAL) Tacrolimus level (05/15/2014 8:15 AM CDT) [facility] gist Method Time Signature Tacrolimus Last 05/14/14 [facility] Dose 2000 [facility] Tacrolimus 4.6 (L) 5.0 - [facility] Level 15.0 ug/L [facility] Comment: Tacrolimus Reference Range [...] Phon e Number [facility] 500 [place], [place] [phone] [place] [address] [facility] Tacrolimus level (05/10/2014 8:50 AM CDT) [facility] gist Method Time Signature Tacrolimus Not Provided [facility] Last Dose [facility] Tacrolimus 14.3 5.0 - [facility] Level 15.0 ug/L [facility] Comment: Tacrolimus Reference Range [...] Phon e Number [facility] 500 [place], [place] [phone] [place] [address] [facility] (ABNORMAL) Tacrolimus level (05/07/2014 8:15 AM CDT) [facility] gist Method Time Signature Tacrolimus Last 05/06/14 [facility] Dose 2000 [facility] Tacrolimus 15.9 (H) 5.0 - [facility] Level 15.0 ug/L [facility] Comment: Tacrolimus Reference Range [...] Phon e Number [facility] 500 [place], [place] [phone] [place] [address] [facility] Tacrolimus level (05/03/2014 8:13 AM CDT) [facility] gist Method Time Signature Tacrolimus Last [facility] Dose 2000 [facility] Tacrolimus 8.8 5.0 - [facility] Level 15.0 ug/L [facility] Comment: Tacrolimus Reference Range [...] Phon e Number [facility] [address] [facility] Tacrolimus level (04/30/2014 8:20 AM CDT) [facility] gist Method Time Signature Tacrolimus Last 04/29/14 [facility] Dose 2000 [facility] Tacrolimus 12.6 5.0 - [facility] Level 15.0 ug/L [facility] Comment: Tacrolimus Reference Range [...] Phon e Number [facility] 500 [place] [address] [facility] Tacrolimus level (04/26/2014 8:30 AM CDT) [facility] gist Method Time Signature Tacrolimus Last 04/25/14 [facility] Dose 1900 [facility] Tacrolimus 10.1 5.0 - [facility] Level 15.0 ug/L [facility] Comment: Tacrolimus Reference Range [...] Phon e Number [facility] 500 [place], [place] [phone] [place] [address] [facility] Tacrolimus level (04/24/2014 9:00 AM CDT) [facility] gist Method Time Signature Tacrolimus Last 04/23/14 [facility] Dose 1900 [facility] Tacrolimus 13.1 5.0 - [facility] Level 15.0 ug/L [facility] Comment: Tacrolimus Reference Range [...] - BLOOD ORDERABLES Performing Organization Address City/State/[facility] Code Phon e Number [facility] [address] LABS documented in this encounter Visit Diagnoses Not on filedocumented in this encounter Care Teams Case Assembler Relationship Specialty Start Date End Date Momo Forbes PCP - General Family Practice 01/02/14 [facility] 1999 [place] [address] Ingrid Santana, RN Registered Nurse Transplant 02/10/12 documented as of this encounter
--- OUTSIDE RECORDS SUMMARY | 2022-05-24 11:51 | XMS_ITS | Encounter Summary ---
:1950 Author Organization [place] Address [address] [place] [address] Care Team Providers Name Role Phone Ingrid Santana RN Unavailable Unavailable Momo Forbes Primary Care Provider Encounter Details Date Type Department Care Team Description 05/22/2014 Orders Only [facility] Spong, Joseph Conor isael, [facility] 500 [facility] [address] [place] [phone] [place] [address] [place] [address] (Wo rk) Social History Tobacco [...] Results Tacrolimus level (06/17/2014 8:05 AM CDT) [facility] gist Method Time Signature Tacrolimus Last 06/16/14 [facility] Dose 2000 [facility] Tacrolimus 6.5 5.0 - [facility] Level 15.0 ug/L [facility] Comment: Tacrolimus Reference Range Kidney Transplant Pediatric [...] Phon e Number [facility] 500 [place], [place] [phone] [place] [address] [facility] Tacrolimus level (06/10/2014 7:52 AM CDT) [facility] gist Method Time Signature Tacrolimus Last 1999 [facility] Dose 06/09/14 [facility] Tacrolimus 7.9 5.0 - [facility] Level 15.0 ug/L [facility] Comment: Tacrolimus Reference [...] Phon e Number [facility] 500 [place], [place] [phone] [place] [address] [facility] Tacrolimus level (06/05/2014 8:28 AM CDT) [facility] gist Method Time Signature Tacrolimus Last 1999 [facility] Dose 06/04/14 [facility] Tacrolimus 7.9 5.0 - [facility] Level 15.0 ug/L [facility] Comment: Tacrolimus Reference [...] ORDERABLES Performing Organization Address City/[facility]/ZIP Code Phon e Number [facility] [address] LABS Tacrolimus level (05/24/2014 8:05 AM CDT) [facility] gist Method Time Signature Tacrolimus 05/23/14 [facility] Last Dose 20:00 [facility] Tacrolimus Test 5.0 - [facility] Level canceled - 15.0 ug/L [facility] entry error Specimen Anatomical Collection Method Collection Time Receive d Time (Source) Location / / Volume Laterality 05/24/2014 8:05 AM 4 2:49 CDT PM CDT Deysi Alicea MD LAB - BLOOD ORDERABLES Performing Organization Address City/State/ZIP Code Phon e Number [facility] 500 [place], [place] [address] [place] [address] [facility] Tacrolimus level (05/24/2014 8:05 AM CDT) Patholo gist Method Time Signature Tacrolimus Last 05/23/14 [facility] Dose 20:00 [facility] Tacrolimus 5.8 5.0 - [facility] Level 15.0 ug/L [facility] [place] [facility] Comment: Tacrolimus Reference Range Kidney Transplant [...] Phon e Number [facility] [address] LABS documented in this encounter Visit Diagnoses Not on filedocumented in this encounter Care Teams Insulator Helper Relationship Specialty Start Date End Date Momo Forbes PCP - General Family Practice 01/02/14 [facility] 1999 [place] [address] Ingrid Santana, RN Registered Nurse Transplant 02/10/12 documented as of this encounter
--- OUTSIDE RECORDS SUMMARY | 2022-05-24 11:51 | XMS_ITS | Encounter Summary ---
:1950 Author Organization [place] Address [address] [facility] [place] [address] Care Team Providers Name Role Phone Ingrid Santana RN Unavailable Unavailable Momo Forbes Primary Care Provider Reason for Visit Auth/Cert - Closed Specialty Diagnoses / Procedures Referred By Contact Refer red To Contact Surgery Diagnoses S/P Kidney Transplant Uu Periop Procedures COMBINED CYSTOSCOPY, REMOVE STENT(S) 500 [place] [address] Phone: Fax: Referral ID Status Reason Start Date Expiration Date Visits Requ ested Visits Authorized [id number] Closed 1 1 Encounter Details Date Type Department Care Team Description 04/01/2014 Anesthesia Event [facility] Clari Torres MD PeriOp Services [facility] ANESTHESIA 500 [place] [address] [place] [address] [place], [place] [address] (Wo rk) Anesthesia Record Procedure Summary Procedure [...] alternatives discussed with: patient or sales representative door to door. I agree with the plan written by [...] Intra-op documented in this encounter Care Teams Maxillofacial Pathology Relationship Specialty Start Date End Date Momo Forbes PCP - General Family Practice 01/02/14 [place] [id number] Ingrid Santana, RN Registered Nurse Transplant 02/10/12 documented as of this encounter
--- OUTSIDE RECORDS SUMMARY | 2022-05-24 11:51 | XMS_ITS | Encounter Summary ---
:1950 Author Organization [place] Address [address] [place] [address]. [place] [address] Care Team Providers Name Role Phone Ingrid Santana RN Unavailable Unavailable Momo Forbes Primary Care Provider Reason for Visit Reason Onset Date Comments Refill Request 04/26/2014 Encounter Details Date Type Department Care Team Description 04/26/2014 Refill Nephrology Shiva Kahn RN Refill Request 2nd Floor, Clinic 2A [facility] [place] [address] [facility] [place], [place] [phone] [place] [address] [place] [phone] Social History Tobacco Use Types Packs/Day [...] transplant documented in this encounter Care Teams Roller Mill Tender Relationship Specialty Start Date End Date Momo Forbes PCP - General Family Practice 01/02/14 [facility] 1999 [place] [address] Ingrid Santana, RN Registered Nurse Transplant 02/10/12 documented as of this encounter
--- OUTSIDE RECORDS SUMMARY | 2022-05-24 11:52 | XMS_ITS | Encounter Summary ---
:1950 Author Organization [place] Address [address] [place] [address]. [place] [address] Care Team Providers Name Role Phone Ingrid Santana RN Unavailable Unavailable Momo Forbes Primary Care Provider Encounter Details Date Type Department Care Team Description 03/11/2014 Orders Only Transplant Surgery Celina Cole (Primary Clinic A, Dx) 2nd Floor, Clinic 2A [address] [address] [facility] [place] [address] Social History Tobacco Use Types [...] channels documented in this encounter Care Teams Vice President Of Advertising Relationship Specialty Start Date End Date Momo Forbes PCP - General Family Practice 01/02/14 [facility] 1999 [place], [place] [phone] Ingrid Santana, RN Registered Nurse Transplant 02/10/12 documented as of this encounter
--- OUTSIDE RECORDS SUMMARY | 2022-05-24 11:52 | XMS_ITS | Encounter Summary ---
:1950 Author Organization [place] Address [address] [place] [address]. [place] [address] Care Team Providers Name Role Phone Ingrid Santana RN Unavailable Unavailable Momo Forbes Primary Care Provider Encounter Details Date Type Department Care Team Description 02/18/2014 Orders Only Nephrology Shiva Kahn RN -donor kidney transplant recipie nt (Primary Dx); 2nd Floor, Clinic 2A [facility] Kidney replaced by transplant; Tommy Ruiz[address] S/P kidney transplant Building [address] [place] [phone] Social History Tobacco Use Types Packs/Day Years [...] transplant documented in this encounter Care Teams Circuit Judge Relationship Specialty Start Date End Date Momo Forbes PCP - General Family Practice 01/02/14 [facility] [address] [place] [address] Ingrid Santana, RN Registered Nurse Transplant 02/10/12 documented as of this encounter
--- OUTSIDE RECORDS SUMMARY | 2022-05-24 11:52 | XMS_ITS | Encounter Summary ---
:1950 Author Organization [place] Address [address] [place] [address] Care Team Providers Name Role Phone Ingrid Santana RN Unavailable Unavailable Momo Forbes Primary Care Provider Reason for Visit Auth/Cert - Closed Specialty Diagnoses / Procedures Referred By Contact Refer red To Contact Surgery Diagnoses S/P Kidney Transplant Uu Periop Procedures COMBINED CYSTOSCOPY, REMOVE STENT(S) 500 [place] [address] Phone: Fax: Referral ID Status Reason Start Date Expiration Date Visits Requ ested Visits Authorized [id number] Closed 1 1 Encounter Details Date Type Department Care Team Description 04/01/2014 Hospital Encounter Formerly [facility] Migel Merchant, Same Day Surgery East [address] 500 [facility] [address] [place] [address] [place] [address] (Wo rk) Social History Tobacco Use Types [...] Scott RN - 04/01/2014 10:15 AM CDT [facility], [place] Same-Day Surgery Adult Discharge Orders & Instructions [...] To contact a doctor, call or: ??? [phone] and ask for the resident nutritional chemist for (answered 24 hours a day) ??? Emergency Department: [facility]: [phone] (TTY for hearing impaired: [phone]) documented in this encounter Medications at Time [...] Component Value Ref Test Analysis Performed At [facility] Range Method Time Signature Specimen Unspecified [facility] Urine CAMPUS LABS Special Specimen [facility] Requests received in MICROBIOLOGY preservative Culture Micro No growth [facility] MICROBIOLOGY Micro Report FINAL [facility] Status 04/02/2014 MICROBIOLOGY Specimen Anatomical Collection Method Collection Time Receive d Time (Source) Location / / Volume Laterality 04/01/2014 9:00 AM 4 9:18 CDT AM CDT Migel Merchant MD LAB - MICRO GENERAL ORDERABL ES Performing Organization Address City/State/ZIP Code Phon e Number [facility] [address] [place] [address] [facility] LABS [facility] MICROBIOLOGY (ABNORMAL) UA with Microscopic (04/01/2014 9:00 AM CDT) Component Value Ref Test Analysis Performed At [facility] Range Method Time Signature Color Urine Yellow [facility]ITY [facility] LABS Appearance Urine Clear [facility] LABS Glucose Urine 30 (A) NEG [facility] mg/dL UNIVERSITY CAMPUS LABS Bilirubin Urine Negative NEG [facility] UNIVERSITY CAMPUS LABS Ketones Urine Negative NEG [facility] mg/dL UNIV[facility]ITY CAMP[facility] LABS Specific [place] 1.017 1.003 - [facility] Urine 1.035 [facility]ITY CAMP[facility] LABS Blood Urine Moderate (A) NEG [facility] pH Urine 6.0 5.0 - [facility] 7.0 pH UNIVERSITY CAMPUS LABS Protein Albumin 10 (A) NEG [facility] Urine mg/dL UNIVERSITY CAMP[facility] LABS Urobilinogen Normal 0.0 - [facility] mg/dL 2.0 UNIVERSITY mg/dL CAMPUS LABS Nitrite Urine Negative NEG [facility] LABS Leukocyte Negative NEG [facility] Esterase Urine [facility]ITY [place] LABS Source Unspecified [facility] Urine UNIVERSITY CAMPUS LABS WBC Urine 2 0 - 2 [facility] /HPF [place] [facility] LABS RBC Urine 30 (H) 0 - 2 [facility] /HPF UNIVERSITY [facility]AMP[facility] LABS Squamous <1 0 - 1 [facility] Epithelial /HPF /HPF [place] Urine CAMPUS LABS Specimen Anatomical Collection Method Collection Time Receive d Time (Source) Location / / Volume Laterality 04/01/2014 9:00 AM 4 9:18 CDT AM CDT Migel Merchant MD LAB - URINE ORDERABLES Performing Organization Address City/State/ZIP Code Phon e Number [address] LABS (ABNORMAL) INR (04/01/2014 8:36 AM CDT) P athologist Signature INR 1.64 (H) 0.86 - 1.14 [facility] LABS Specimen Anatomical Collection Method Collection Time Receive d Time (Source) Location / / Volume Laterality Blood specimen 04/01/2014 8:36 AM 014 8:41 (specimen) CDT AM CDT Momo Jimenez MD LAB - BLOOD ORDERABLES Performing Organization Address City/State/ZIP Code Phon e Number [address] LABS EKG 12-lead, tracing only (04/01/2014 [...] 3.4 - 5.3 [facility] mmol/L CAMPUS LABS Specimen Anatomical Collection Method Collection Time Receive d Time (Source) Location / / Volume Laterality Blood specimen 04/01/2014 8:11 AM 014 8:27 (specimen) CDT AM CDT Momo Jimenez MD LAB - BLOOD ORDERABLES Performing Organization Address City/[facility]/ZIP Code Phon e Number [address] LABS (ABNORMAL) Hemoglobin (04/01/2014 8:11 AM CDT) athologist Signature Hemoglobin 10.2 (L) 13.3 - [facility] 17.7 g/dL CAMPUS LABS Specimen Anatomical Collection Method Collection Time Receive d Time (Source) Location / / Volume Laterality Blood specimen 04/01/2014 8:11 AM 014 8:27 (specimen) CDT AM CDT Momo Jimenez MD LAB - BLOOD ORDERABLES Performing Organization Address City/[facility]/ZIP Code Phon e Number [address] LABS (ABNORMAL) Glucose by meter (04/01/2014 [...] 0850 (Given - Provider: Addis Brannon APRN [employer] SC[employer]ION - Comment: Asked by Fellow to give [...] Intra-procedure documented in this encounter Care Teams Workforce Planner Relationship Specialty Start Date End Date Momo Forbes PCP - General Family Practice 01/02/[address] [address] Ingrid Santana, RN Registered Nurse Transplant 02/10/12 documented as of this encounter
--- OUTSIDE RECORDS SUMMARY | 2022-05-24 11:52 | XMS_ITS | Encounter Summary ---
:1950 Author Organization [place] Address [address] [place] [address]. [place] [address] Care Team Providers Name Role Phone Ingrid Santana RN Unavailable Unavailable Momo Forbes Primary Care Provider Encounter Details Date Type Department Care Team Description 03/14/2014 Orders Only Nephrology Shiva Kahn RN -donor kidney 2nd Floor, Clinic 2A [facility] transplant recipient Tommy Ruizteen [address] [place] [address] [place] [phone] Social History Tobacco Use Types Packs/Day Years [...] transplant documented in this encounter Care Teams Ship Scraper Relationship Specialty Start Date End Date Momo Forbes PCP - General Family Practice 01/02/14 [facility] [address] [place] [address] Ingrid Santana, RN Registered Nurse Transplant 02/10/12 documented as of this encounter
--- OUTSIDE RECORDS SUMMARY | 2022-05-24 11:52 | XMS_ITS | Encounter Summary ---
:1950 Author Organization [place] Address [address] [place] [address]. 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
--- OUTSIDE RECORDS SUMMARY | 2022-05-24 11:52 | XMS_ITS | Encounter Summary ---
:1950 Author Organization [place] Address [address] [place] [address]. [place] [address] Care Team Providers Name Role Phone Ingrid Santana RN Unavailable Unavailable Momo oFrbes Primary Care Provider Encounter Details Date Type Department Care Team Description 03/01/2014 Orders Only Nephrology Shiva Kahn RN -donor kidney 2nd Floor, Clinic 2A [facility] transplant recipient Tommy Ruizteen [address] [place] [address] [place] [phone] Social History Tobacco Use Types Packs/Day Years [...] transplant documented in this encounter Care Teams Snow Blower Relationship Specialty Start Date End Date Momo Forbes PCP - General Family Practice 01/02/14 [facility] [address] [place] [address] Ingrid Santana, RN Registered Nurse Transplant 02/10/12 documented as of this encounter
--- OUTSIDE RECORDS SUMMARY | 2022-05-24 11:52 | XMS_ITS | Encounter Summary ---
:1950 Author Organization [place] Address [facility] [place] [address] Care Team Providers Name Role Phone Ingrid Santana RN Unavailable Unavailable Momo Raines Primary Care Provider Reason for Visit Reason Comments Consult consult for afib Encounter Details Date Type Department Care Team Description 02/18/2014 Office Visit [facility] Joseph Hernandez, (H) (Primary Dx) Heart MD [facility] Building [place] 4th Floor, Clinic 4B [address] [phone] [place], [place] (Work) [address] [phone] Social History Tobacco Use Types Packs/Day Years [...] Years of Education: 14 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
--- OUTSIDE RECORDS SUMMARY | 2022-05-24 11:52 | XMS_ITS | Encounter Summary ---
:1950 Author Organization [place] Address [facility] [place] [address] Care Team Providers Name Role Phone Ingrid Santana RN Unavailable Unavailable Momo Forbes Primary Care Provider Reason for Visit Reason Onset Date Comments Transplant 03/08/2014 Elevated tacrolimus level Encounter Details Date Type Department Care Team Description 03/08/2014 Telephone Nephrology Jeff Giordano (Elevated 2nd Floor, Clinic 2A Almita Palomino RN tacrolimus level) Tommy Wilburn [address] [phone] Social History Tobacco Use Types Packs/Day Years [...] repeat the level. Leonor Giordano R.N. - [phone] documented in this encounter Plan of Treatment Not on filedocumented as of this encounter Visit Diagnoses Not on filedocumented in this encounter Care Teams Butt Maker Relationship Specialty Start Date End Date Momo Forbes PCP - General Family Practice 01/02/14 [facility] [address] [place] [address] Ingrid Santana, RN Registered Nurse Transplant 02/10/12 documented as of this encounter
--- OUTSIDE RECORDS SUMMARY | 2022-05-24 11:52 | XMS_ITS | Encounter Summary ---
:1950 Author Organization [place] Address [facility] [place] [address] Care Team Providers Name Role Phone Ingrid [...] kidney transp lant recipient; [address] 1 95 High risk medications (not anticoagulant s) long-term use; Building jail (current) use of anticoagulant s; [address] [place], [place]emia; [place] [address] Orthostatic hypotension [facility] 88 [place], [place] (Work) [phone] Social History Tobacco Use [...] Somewhat lethargic. Otherwise well Abd mod obesity. New Point in place. Drain with small amt of [...] sults (not anticoagulants) section . long-term use jail (current) use of anticoagulants PHOSPHORUS Routine 02/25/2014 [...] Component Value Ref Test Analysis Performed At [facility] Range Method Time Signature BK Virus DNA Plasma, EDTA [facility] Quant Source anticoagulant [facility] LABS BK Virus DNA <390 [facility] Quant Unit: cpy/mL [facility]ITY Copy/mL [place] [facility] BK Virus DNA <2.6 [facility] Quant Log Unit: log [place] (Note) [facility] INTERPRETIVE INFORMATION: BK Virus, Quantitation by [...] methodologies. Test developed and characteristics determined by [employer]. See Compliance Statement A: [id number]CS BK Virus DNA Not Detected [facility] Quant Interp Reference range: Not Detected [place] (Note) [facility] [facility] Performed by [employer], [address] [place] [id number] [email or web address], Kj Mcmillan MD, Lab. Director Specimen Anatomical Collection Method Collection Time Receive d Time (Source) Location / / Volume Laterality Blood specimen 02/25/2014 10:54 4 (specimen) AM CDT 10:55 AM CDT Deysi Ailcea MD LAB - MICRO GENERAL ORDERABL ES Performing Organization Address City/State/ZIP Code Phon e Number [id number] [place] [address] LABS Immunology recipient: SOT PRA (Post Tx for Donor Spec Antibody) (02/25/2014 10:54 AM CDT) [facility] Method Time Signature Immunology PRA [facility] Test Name [facility] LABS Immunology Specimen [facility] Result received - [facility] LABS report to follow upon completion. Specimen Anatomical Collection Method Collection Time Receive d Time (Source) Location / / Volume Laterality Blood specimen 02/25/2014 10:54 4 (specimen) AM CDT 10:55 AM CDT Deysi Alicea MD LAB - IMMUNOLOGY ORDERABLES Performing Organization Address City/State/ZIP Code Phon e Number [address] LABS (ABNORMAL) INR (02/25/2014 10:53 AM CDT) P athologist Signature INR 2.39 (H) 0.86 - 1.14 [facility] LABS Specimen Anatomical Collection Method Collection Time Receive d Time (Source) Location / / Volume Laterality Blood specimen 02/25/2014 10:53 4 (specimen) AM CDT 10:54 AM CDT Migel Merchant MD LAB - BLOOD ORDERABLES Performing Organization Address City/[facility]/ZIP Code Phon e Number [address] LABS (ABNORMAL) Magnesium (02/25/2014 10:53 AM CDT) P athologist Signature Magnesium 1.5 (L) 1.6 - 2.3 [facility] mg/dL [place] [facility] Specimen Anatomical Collection Method Collection Time Receive d Time (Source) Location / / Volume Laterality Blood specimen 02/25/2014 10:53 4 (specimen) AM CDT 10:54 AM CDT Deysi Alicea MD LAB - BLOOD ORDERABLES Performing Organization Address City/[facility]/ZIP Code Phon e Number [facility] [address] LABS (ABNORMAL) Phosphorus (02/25/2014 10:53 AM CDT) P athologist Signature Phosphorus 1.3 (L) 2.5 - 4.5 [facility] mg/dL [place] [facility] Specimen Anatomical Collection Method Collection Time Receive d Time (Source) Location / / Volume Laterality Blood specimen 02/25/2014 10:53 4 (specimen) AM CDT 10:54 AM CDT Deysi Alicea MD LAB - BLOOD ORDERABLES Performing Organization Address City/[facility] Code Phon e Number [facility] [address] [place] [id number] [facility] LABS Mycophenolic acid (02/25/2014 10:53 AM CDT) Component Value Ref Test Analysis Performed At Patholo gist Range Method Time Signature Last Dose 02/24/14 ?? 1999 [facility] Mycophenolic CORRECTED ON 02/25 AT 1055: PREVIOUSLY REPORTED 1999 UNIV[facility]ITY Acid CAMPUS LABS Mycophenolic 1.39 1.00 - [facility] Acid Mg/L 3.50 [facility] mg/L [place] [facility] MPA Glucuronide 80.2 30.0 - [facility] Level 95.0 [place] mg/L [facility] [facility] Specimen Anatomical Collection Method Collection Time Receive d Time (Source) Location / / Volume Laterality Blood specimen 02/25/2014 10:53 4 (specimen) AM CDT 10:54 AM CDT Deysi Alicea MD LAB - BLOOD ORDERABLES Performing Organization Address [facility]/ZIP Code Phon e Number [facility] [address] LABS Tacrolimus level (02/25/2014 10:53 AM CDT) Patholo gist Method Time Signature Tacrolimus 02/24/14 ?1999 [facility] Last Dose CORRECTED ON 02/25 AT 1055: PREVIOUSLY REPORTED 1999 [facility] LABS Tacrolimus 9.1 5.0 - [facility] Level 15.0 ug/L [facility] LABS Comment: Tacrolimus Reference Range Kidney Transplant [...] Phon e Number [facility] [address] LABS (ABNORMAL) Basic metabolic panel (02/25/2014 10:53 AM CDT) [facility] Method Time Signature Sodium 137 133 - 144 [facility] mmol/L [facility] LABS Potassium 4.6 3.4 - 5.3 [facility] mmol/L [facility]S Chloride 108 94 - 109 [facility] mmol/L [facility]S Carbon Dioxide 19 (L) 20 - 32 [facility] mmol/L [facility]S Anion Gap 10 6 - 17 [facility] mmol/L [facility]S Glucose 217 (H) 60 - 99 [facility] mg/dL [facility]S Urea Nitrogen 13 7 - 30 [facility] mg/dL [facility] LABS Creatinine 1.48 (H) 0.66 - [facility] 1.25 mg/dL [facility]S GFR Estimate 48 (L) >60 [facility] mL/min/1.7 [place] m2 [place] [facility] GFR Estimate If 58 (L) >60 [facility] Black mL/min/1.7 [place] [address] CAMPUS LABS Calcium 9.6 8.5 - 10.4 [facility] mg/dL [facility]ITY CAMPUS LABS Specimen Anatomical Collection Method Collection Time Receive d Time (Source) Location / / Volume Laterality Blood specimen 02/25/2014 10:53 4 (specimen) AM CDT 10:54 AM CDT Deysi Alicea MD LAB - BLOOD ORDERABLES Performing Organization Address City/State/ZIP Code Phon e Number [phone] [place] [address] [facility] LABS (ABNORMAL) CBC with platelets differential (02/25/2014 10:53 AM CDT) [facility] gist Method Time Signature WBC 4.9 4.0 - [facility] 11.0 UNIVERSITY 10e9/L CAMPUS LABS RBC Count 2.67 (L) 4.4 - 5.9 [facility] 10e12/L [facility] LABS Hemoglobin 7.8 (L) 13.3 - [facility] 17.7 g/dL [facility]S Hematocrit 23.5 (L) 40.0 - [facility] 53.0 % [facility] MCV 88 78 - 100 [facility] fl [facility]ITY [place] [facility] MCH 29.2 26.5 - [facility] 33.0 pg [facility] MCHC 33.2 31.5 - [facility] 36.5 g/dL [facility] [place] [facility] RDW 14.3 10.0 - [facility] 15.0 % [facility]ITY CAMPUS LABS Platelet Count 179 150 - 450 [facility] 10e9/L [facility] Diff Method Automated [facility] Method [facility] LABS % Neutrophils 89.4 % [facility] LABS % Lymphocytes 3.9 % [facility] % Monocytes 5.1 % [facility] % Eosinophils 1.2 % [facility] % Basophils 0.2 % [facility] % Immature 0.2 % [facility] Granulocytes [facility] Absolute 4.4 1.6 - 8.3 [facility] Neutrophil 10e9/L [facility] LABS Absolute 0.2 (L) 0.8 - 5.3 [facility] Lymphocytes 10e9/L [facility] Absolute 0.3 0.0 - 1.3 [facility] Monocytes 10e9/L [facility] Absolute 0.1 0.0 - 0.7 [facility] Eosinophils 10e9/L [facility] Absolute 0.0 0.0 - 0.2 [facility] Basophils 10e9/L [facility] Abs Immature 0.0 0 - 0.4 [facility] Granulocytes 10e9/L [facility] LABS Specimen Anatomical Collection Method Collection Time Receive d Time (Source) Location / / Volume Laterality Blood specimen 02/25/2014 10:53 4 (specimen) AM CDT 10:54 AM CDT Deysi Alicea MD LAB - BLOOD ORDERABLES Performing Organization Address City/State/ZIP Code Phon e Number [facility] [address] [place] [address] 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
--- OUTSIDE RECORDS SUMMARY | 2022-05-24 11:52 | XMS_ITS | Encounter Summary ---
:1950 Author Organization [place] Address [address] [place] [address] Care Team Providers Name Role Phone Ingrid Santana RN Unavailable Unavailable Momo Forbes Primary Care Provider Encounter Details Date Type Department Care Team Description 03/22/2014 Orders Only [facility] Spong, Joseph Conor isael, [facility] [address] [facility] [address] [place] [address] [phone] [place] [address] [place] [address] (Wo rk) Social History Tobacco [...] Results Tacrolimus level (04/19/2014 8:40 AM CDT) [facility] Method Time Signature Tacrolimus Not Provided [facility] Last Dose [facility] Tacrolimus 10.3 5.0 - [facility] Level 15.0 ug/L [facility] Comment: Tacrolimus Reference Range Kidney Transplant [...] Phon e Number [facility] 500 [place] [address] [facility] Tacrolimus level (04/16/2014 8:22 AM CDT) [facility] gist Method Time Signature Tacrolimus Not Provided [facility] Last Dose [facility] Tacrolimus 9.1 5.0 - [facility] Level 15.0 ug/L [facility] Comment: Tacrolimus Reference Range Kidney Transplant [...] Phon e Number [facility] [address] [facility] Tacrolimus level (04/11/2014 8:40 AM CDT) [facility] gist Method Time Signature Tacrolimus Last 04/10/14 [facility] Dose 19:00 [facility] Tacrolimus 14.4 5.0 - [facility] Level 15.0 ug/L [facility] Comment: Tacrolimus Reference Range Kidney Transplant [...] [facility] Code Phon e Number [facility] 500 [place], [place] [id number] [place] [address] [facility] Tacrolimus level (04/09/2014 8:45 AM CDT) [facility] gist Method Time Signature Tacrolimus Last 04/08/14 [facility] Dose 2000 [facility] Tacrolimus 11.7 5.0 - [facility] Level 15.0 ug/L [facility] Comment: Tacrolimus Reference Range Kidney Transplant [...] Phon e Number [facility] 500 [place], [place] [id number] [place] [address] LABS Tacrolimus level (04/05/2014 9:40 AM CDT) [facility] gist Method Time Signature Tacrolimus Last 1999 [facility] Dose 04/04/14 [facility] Tacrolimus 9.7 5.0 - [facility] Level 15.0 ug/L [facility] Comment: Tacrolimus Reference Range Kidney Transplant [...] Phon e Number [facility] 500 [place] [address] [facility] (ABNORMAL) Tacrolimus level (03/28/2014 8:30 AM CDT) [facility] gist Method Time Signature Tacrolimus Last 03/27/14 [facility] Dose 1900 [facility] Tacrolimus 15.8 (H) 5.0 - [facility] Level 15.0 ug/L [facility] Comment: Tacrolimus Reference Range Kidney Transplant [...] Phon e Number [facility] 500 [place] [address] [facility] Tacrolimus level (03/26/2014 9:18 AM CDT) [facility] gist Method Time Signature Tacrolimus Last 03/25/14 [facility] Dose 1900 [facility] Tacrolimus 9.2 5.0 - [facility] Level 15.0 ug/L [facility] Comment: Tacrolimus Reference Range Kidney Transplant [...] Phon e Number [facility] [address] [facility] Tacrolimus level (03/14/2014 9:00 AM CDT) [facility] gist Method Time Signature Tacrolimus Last 2000 [facility] Dose 03/13/14 [facility] Tacrolimus 9.5 5.0 - [facility] Level 15.0 ug/L [facility] Comment: Tacrolimus Reference Range Kidney Transplant [...] Phon e Number [facility] 500 [place], [place] [id number] [place] [address] LABS documented in this encounter Visit Diagnoses Not on filedocumented in this encounter Care Teams Tire Fabric Impregnating Range Tender Relationship Specialty Start Date End Date Momo Forbes PCP - General Family Practice 01/02/14 [facility] [address] [place] [address] Ingrid Santana, RN Registered Nurse Transplant 02/10/12 documented as of this encounter
--- OUTSIDE RECORDS SUMMARY | 2022-05-24 11:52 | XMS_ITS | Encounter Summary ---
:1950 Author Organization [place] Address [address] [place] [address]. [place] [address] Care Team Providers Name Role Phone Ingrid [...] 12-lead, tracing only (02/18/2014 9:53 AM CDT) [facility] gist Method Time Signature Interpretation ECG Click [...] this encounter Care Teams Assistant Professor Of Radiology Relationship Specialty Start Date End Date Momo Forbes PCP - General Family Practice 01/02/14 [facility] [address] [place] [address] Ingrid Santana, RN Registered Nurse Transplant 02/10/12 documented as of this encounter
--- OUTSIDE RECORDS SUMMARY | 2022-05-24 11:52 | XMS_ITS | Encounter Summary ---
:1950 Author Organization [place] Address [address] [place] [address] Care Team Providers Name Role Phone Ingrid Santana RN Unavailable Unavailable Momo Forbes Primary Care Provider Reason for Visit Auth/Cert - Closed Specialty Diagnoses / Procedures Referred By Contact Refer red To Contact Surgery Diagnoses Status Post Kidney Transplant Uu Periop Procedures COMBINED CYSTOSCOPY, REMOVE STENT(S) 500 [place] [address] Phone: Fax: Referral ID Status Reason Start Date Expiration Date Visits Requ ested Visits Authorized [id number] Closed 1 1 Encounter Details Date Type Department Care Team Description 03/11/2014 Hospital Encounter [facility] Migel Merchant, Same Day Surgery East [address] 500 [facility] [address] [place] [address] [place] [address] (Wo rk) Social History Tobacco Use Types [...] 8:46 CDT AM CDT Migel Merchant MD [facility] POCT Performing Organization Address City/State/ZIP Code Phon e Number [facility] POINT OF CARE TEST, GLUCOSE POINT OF CARE TEST, GLUCOSE documented in this encounter Visit Diagnoses Not on filedocumented in this encounter Active and Recently Administered Medications Care Teams Nuclear Fuels Research Engineer Relationship Specialty Start Date End Date Momo Forbes PCP - General Family Practice 01/02/14 [facility] [address] [place] [address] Ingrid Santana, RN Registered Nurse Transplant 02/10/12 documented as of this encounter
--- OUTSIDE RECORDS SUMMARY | 2022-05-24 11:52 | XMS_ITS | Encounter Summary ---
:1950 Author Organization [place] Address [address] [place] [address] Care Team Providers Name Role Phone Ingrid Santana RN Unavailable Unavailable Momo Forbes Primary Care Provider Encounter Details Date Type Department Care Team Description 03/15/2014 Hospital Encounter [facility] Susy Cole, Lymphocele Unit 2A [facility] [address] [place] [phone] [place], [place] [address] (Wo rk) Social History Tobacco Use Types [...] until healed, wash daily with antibacterial soap. [facility] INTERVENTIONAL RADIOLOGY DEPARTMENT Procedure Physician Andrea Can Date of procedure Telephone numbers: [phone] Tuesday-Tuesday 8:00 am to 4:30 pm [phone] After 4:30 pm Tuesday-Tuesday, Weekends & Holidays. Ask for the Interventional Radiologist administrative assistant front desk. Someone is available 24 hours/day [facility] toll free number: Tuesday-Tuesday 8:00 [...] CCRN March 15, 2014 9:20 AM Pager: [phone] [facility] - 03/15/2014 8:58 AM CDT Discussed order with Dr Merchant today. He would like drain placement if the fluid appears thin. If itappears to be a hematoma then aspiration only. D/w Drea resident and IR staff doing the case. Thanks [facility] FENDER MECHANIC APPRENTICE ([phone]) Jeanette Lopez RN - 03/15/2014 8:14 AM CDT Prepped and consented, INR 1.1 FSBS is 219 documented in this encounter Procedure Notes Drea Glasgow MD - 03/15/2014 9:23 AM CDT Interventional Radiology Brief Post Procedure Note Pre Procedure Diagnosis: perinephric fluid collection Post Procedure Diagnosis: Same Procedure: Aspiration of RLQ fluid collection over the tranplant kidney Proceduralist: Drea Glasgow MD, Andrea Gibbons PA-C Template Storage Clerk: None Time Out: Prior to the start [...] CDT Varvara A Douglas MD LAB - [facility] POCT Performing Organization Address City/State/ZIP [...] Dr. Yossi Cox Resident: Dr. Drea Glasgow Template Storage Clerk: Andrea Gibbons PA-C. Medications: 1% lidocaine and [...] Dr. Yossi Cox Resident: Dr. Drea Glasgow Template Storage Clerk: Andrea Gibbons PA-C. Medications: 1% lidocaine and [...] Component Value Ref Test Analysis Performed At [facility] Range Method Time Signature Specimen Aspirate [facility] Gram Stain Many PMNs seen [facility] No organisms seen MICROBIOLOGY Micro Report FINAL [facility] Status 03/15/2014 MICROBIOLOGY Specimen Anatomical Collection Method Collection Time Receive d Time (Source) Location / / Volume Laterality 03/15/2014 9:05 AM 4 9:59 CDT AM CDT Celina Cole MD LAB - MICRO GENERAL ORDERABL ES Performing Organization Address City/[facility] Phon e Number [address] LABS [facility] MICROBIOLOGY (ABNORMAL) Fluid Culture (03/15/2014 9:05 AM CDT) Component Value Ref Test Analysis Performed At [facility] Range Method Time Signature Specimen Aspirate [facility] Description [facility] Culture Micro Light growth Coagulase negat [...] MICRO GENERAL ORDERABL ES Performing Organization Address City/[facility] Code Phon e Number [address] LABS [facility] MICROBIOLOGY Triglyceride Fluid (03/15/2014 9:05 AM CDT) [facility] Method Time Signature Triglyceride Aspirate [facility] Fluid Source [facility] Triglyceride 94 mg/dL [facility] Fluid [facility] Comment: No reference ranges have [...] Phon e Number [facility] 500 [place], [place] [phone] [place] [address] LABS Cell count with differential fluid (03/15/2014 9:05 AM CDT) Component Value Ref Test Analysis Performed At [facility] gist Range Method Time Signature Body Fluid Aspirate [facility] Analysis Source [facility] LABS Color Fluid Brown [facility] LABS Appearance Turbid [facility] Fluid [facility] LABS RBC Fluid << Do Not /uL [facility] Report >> [facility] LABS WBC Fluid [id number] /uL [facility] LABS % Neutrophils 97 % [facility] Fluid [facility] LABS % Lymphocytes 2 % [facility] Fluid [facility] LABS % Eosinophils 1 % [facility] Fluid [facility] LABS Specimen Anatomical Collection Method Collection Time Receive d Time (Source) Location / / Volume Laterality SPECIMEN OBTAINED 03/15/2014 9:05 AM 02/20 9:56 BY ASPIRATION / CDT AM CDT Unknown Celina Cole MD LAB - BODY FLUIDS ORDERABLES Performing Organization Address City/[facility]/ZIP Code Phon e Number [facility] [address] LABS Lactate dehydrogenase fluid (03/15/2014 9:05 AM CDT) Component Value Ref Test Analysis Performed At [facility] Range Method Time Signature LD Fluid Source Aspirate [facility] Lactate Canceled, Test credited U/L [...] - BODY FLUIDS ORDERABLES Performing Organization Address City/[facility]/ZIP Code Phon e Number [facility] 500 [place], [place] [address] [place] [address] LABS Creatinine fluid (03/15/2014 9:05 AM CDT) Patholo gist Method Time Signature Creatinine Aspirate [facility] Fluid Source [facility] LABS Creatinine 1.5 mg/dL [facility] Fluid [facility] LABS Comment: No reference ranges have [...] - BODY FLUIDS ORDERABLES Performing Organization Address City/[facility]/ZIP Code Phon e Number [id number] [place] [address] LABS INR point of care (03/15/2014 8:06 AM CDT) P athologist Signature INR Point of 1.1 0.86 - POINT OF CARE Care 1.14 TEST, HANDHELD METER Specimen Anatomical Collection Method Collection Time Receive d Time (Source) Location / / Volume Laterality 03/15/2014 8:06 AM 4 8:30 CDT AM CDT Celina Cole MD LAB - BLOOD ORDERABLES Performing Organization Address City/[facility]/ZIP Code Phon e Number [facility] POINT OF [...] Jeanette Lopez, BOGDAN) Routine, 3 g, Intravenous, PRE-OP/PRE-VT OCEDURE, Starting on Tue03/15/14 at 0734, For [...] Intra-procedure documented in this encounter Care Teams Poultry Picker Relationship Specialty Start Date End Date Momo Forbes PCP - General Family Practice 01/02/14 [facility] [address] [place] [address] Ingrid Santana, RN Registered Nurse Transplant 02/10/12 documented as of this encounter
--- OUTSIDE RECORDS SUMMARY | 2022-05-24 11:52 | XMS_ITS | Encounter Summary ---
:1950 Author Organization [place] Address [address] [place] [address]. [place] [address] Care Team Providers Name Role Phone Ingrid Santana RN Unavailable Unavailable Momo Forbes Primary Care Provider Reason for Visit Reason Onset Date Comments Pt. Information/instruction 03/14/2014 Encounter Details Date Type Department Care Team Description 03/14/2014 Telephone [facility] Beto Womack Pt . Interventional Radio martha Dangelo RN Information/instructio 500 [place] [address] Social History Tobacco Use Types Packs/Day Years [...] on filedocumented in this encounter Care Teams Principal Solutions Architect Relationship Specialty Start Date End Date Momo Forbes PCP - General Family Practice 01/02/14 [facility] 1999 [place] [address] Ingrid Santana RN Registered Nurse Transplant 02/10/12 documented as of this encounter
--- OUTSIDE RECORDS SUMMARY | 2022-05-24 11:52 | XMS_ITS | Encounter Summary ---
:1950 Author Organization [place] Address [facility] [place] [address] Care Team Providers Name Role Phone Ingrid Santana RN Unavailable Unavailable Momo Forbes Primary Care Provider Encounter Details Date Type Department Care Team Description 02/18/2014 Orders Only The Transplant Deysi Burns, Kidney replaced by transplan t; 2nd Floor, Clinic 2A S/P kidney transplant Arpita [facility] 516 [facility] [address] [place] [address] [address] [place], [place] [phone] [place] [address] (Wo rk) [phone] Social History Tobacco Use Types Packs/Day Years [...] Signature Magnesium 1.5 (L) 1.6 - 2.3 [facility] mg/dL [place] LABS Specimen Anatomical Collection Method Collection Time Receive d Time (Source) Location / / Volume Laterality Blood specimen 02/18/2014 8:56 AM 014 8:57 (specimen) CDT AM CDT Kaitlynn Leon MD LAB - BLOOD ORDERABLES Performing Organization Address City/State/ZIP Code Phon e Number [address] LABS (ABNORMAL) Phosphorus (02/18/2014 8:56 AM CDT) athologist Signature Phosphorus 1.9 (L) 2.5 - 4.5 [facility] mg/dL [place] [facility] Specimen Anatomical Collection Method Collection Time Receive d Time (Source) Location / / Volume Laterality Blood specimen 02/18/2014 8:56 AM 014 8:57 (specimen) CDT AM CDT Kaitlynn Leno MD LAB - BLOOD ORDERABLES Performing Organization Address City/State/ZIP Code Phon e Number [address] LABS Tacrolimus level (02/18/2014 8:56 AM CDT) [facility] gist Method Time Signature Tacrolimus Last 06/24/14 [facility] Dose 1930 [facility] LABS Tacrolimus 14.1 5.0 - [facility] Level 15.0 ug/L [facility] LABS Comment: Tacrolimus Reference Range Kidney Transplant [...] Phon e Number [facility] 500 [place] [address] [facility] LABS (ABNORMAL) CBC with platelets differential (02/18/2014 8:56 AM CDT) [facility] gist Method Time Signature WBC 6.3 4.0 - [facility] 11.0 [facility] 10e9/L [place] [facility] RBC Count 2.59 (L) 4.4 - 5.9 [facility] 10e12/L [facility] LABS Hemoglobin 7.8 (L) 13.3 - [facility] 17.7 g/dL [facility] LABS Hematocrit 23.7 (L) 40.0 - [facility] 53.0 % [facility] LABS MCV 92 78 - 100 [facility] fl [facility] LABS MCH 30.1 26.5 - [facility] 33.0 pg [facility] LABS MCHC 32.9 31.5 - [facility] 36.5 g/dL [facility] LABS RDW 14.7 10.0 - [facility] 15.0 % [facility] LABS Platelet Count 140 (L) 150 - 450 [facility] 10e9/L [facility] LABS Diff Method Automated [facility] Method [facility] LABS % Neutrophils 84.7 % [facility] LABS % Lymphocytes 3.8 % [facility] LAB[facility] % Monocytes 6.0 % [facility] % Eosinophils 4.8 % [facility] % Basophils 0.5 % [facility] % Immature 0.2 % [facility] Granulocytes [facility] Absolute 5.3 1.6 - 8.3 [facility] Neutrophil 10e9/L [facility] Absolute 0.2 (L) 0.8 - 5.3 [facility] Lymphocytes 10e9/L [facility] Absolute 0.4 0.0 - 1.3 [facility] Monocytes 10e9/L [facility] Absolute 0.3 0.0 - 0.7 [facility] Eosinophils 10e9/L [facility] Absolute 0.0 0.0 - 0.2 [facility] Basophils 10e9/L [facility] Abs Immature 0.0 0 - 0.4 [facility] Granulocytes 10e9/L [facility]S Specimen Anatomical Collection Method Collection Time Receive d Time (Source) Location / / Volume Laterality Blood specimen 02/18/2014 8:56 AM 014 8:57 (specimen) CDT AM CDT Kaitlynn Leon MD LAB - BLOOD ORDERABLES Performing Organization Address City/State/ZIP Code Phon e Number [facility] 500 [place] [address] [facility] LABS (ABNORMAL) Basic metabolic panel (02/18/2014 8:56 AM CDT) Patholo gist Method Time Signature Sodium 141 133 - 144 [facility] mmol/L [facility] LABS Potassium 5.2 3.4 - 5.3 [facility] mmol/L [facility]S Chloride 112 (H) 94 - 109 [facility] mmol/L [facility]S Carbon Dioxide 18 (L) 20 - 32 [facility] mmol/L [facility] Anion Gap 11 6 - 17 [facility] mmol/L [facility] Glucose 185 (H) 60 - 99 [facility] mg/dL [facility]S Urea Nitrogen 24 7 - 30 [facility] mg/dL [facility] LABS Creatinine 1.81 (H) 0.66 - [facility] 1.25 mg/dL [facility] LABS GFR Estimate 38 (L) >60 [facility] mL/min/1.7 [place] [facility] LABS GFR Estimate If 46 (L) >60 [facility] Black mL/min/1.[address] LABS Calcium 9.4 8.5 - 10.4 [facility] mg/dL [facility] LABS Specimen Anatomical Collection Method Collection Time Receive d Time (Source) Location / / Volume Laterality Blood specimen 02/18/2014 8:56 AM 014 8:57 (specimen) CDT AM CDT Kaitlynn Leon MD LAB - BLOOD ORDERABLES Performing Organization Address City/[facility] Code Phon e Number [address] LABS (ABNORMAL) INR (02/18/2014 8:56 AM CDT) P athologist Signature INR 2.13 (H) 0.86 - 1.14 [facility] LABS Specimen Anatomical Collection Method Collection Time Receive d Time (Source) Location / / Volume Laterality Blood specimen 02/18/2014 8:56 AM 014 8:57 (specimen) CDT AM CDT Kaitlynn Leon MD LAB - BLOOD ORDERABLES Performing Organization Address City/[facility] Code Phon e Number [address] LABS documented in this encounter Visit Diagnoses Diagnosis Kidney replaced by transplant S/P kidney transplant Kidney replaced by transplant documented in this encounter Care Teams Dishing Machine Operator Relationship Specialty Start Date End Date Momo Forbes PCP - General Family Practice 01/02/14 [facility] [address] [place] [address] Ingrid Santana, RN Registered Nurse Transplant 02/10/12 documented as of this encounter
--- OUTSIDE RECORDS SUMMARY | 2022-05-24 11:52 | XMS_ITS | Encounter Summary ---
:1950 Author Organization [place] Address [address] [place] [address] Care Team Providers Name Role Phone Ingrid Santana RN Unavailable Unavailable Momo Forbes Primary Care Provider Encounter Details Date Type Department Care Team Description 02/19/2014 Orders Only [facility] Spong, Joseph Conor isael, [facility] 500 [facility] [address] [place] [address] [phone] [place] [address] 532 [place] [address] (Wo rk) Social History Tobacco [...] Results Tacrolimus level (03/19/2014 9:05 AM CDT) [facility] Method Time Signature Tacrolimus Last 03/18/[address] [facility] [address] [facility] Tacrolimus 13.1 5.0 - [facility] Level 15.0 ug/L ST. [...] Phon e Number [facility] 500 [place], [place] [phone] [place] [address] [facility] Tacrolimus level (03/12/2014 9:40 AM CDT) [facility] gist Method Time Signature Tacrolimus Not Provided [facility] Last Dose [facility] Tacrolimus 7.3 5.0 - [facility] Level 15.0 ug/L ST. [...] Phon e Number [facility] [address] [facility] Tacrolimus level (03/08/2014 10:15 AM CDT) [facility] gist Method Time Signature Tacrolimus Last 03/07/[address] [facility] [address] [facility] Tacrolimus 6.1 5.0 - [facility] Level 15.0 ug/L ST. [...] Phon e Number [facility] [address] [facility] Tacrolimus level (03/06/2014 5:13 PM CDT) [facility] gist Method Time Signature Tacrolimus Last 1400 [facility] Dose 03/05/14 [facility] Tacrolimus 11.3 5.0 - [facility] Level 15.0 ug/L ST. [...] Phon e Number [facility] 500 [place], [place] [phone] [place] [address] [facility] Tacrolimus level (03/01/2014 8:10 AM CDT) [facility] gist Method Time Signature Tacrolimus Last 02/28/[address] [facility] [address] [facility] Tacrolimus 10.6 5.0 - [facility] Level 15.0 ug/L ST. [...] Phon e Number [facility] 500 [place], [place] [phone] [place] [address] [facility] Tacrolimus level (02/27/2014 8:15 AM CDT) [facility] gist Method Time Signature Tacrolimus Last 02/26/[address] [facility] [address] [facility] Tacrolimus 11.4 5.0 - [facility] Level 15.0 ug/L ST. [...] Phon e Number [facility] 500 [place], [place] [phone] [place] [address] LABS HLA Lukasz Class II Single Antigen (02/25/2014 10:43 AM CDT) Component Value Ref Test Analysis Performed At [facility] gist Range Method Time Signature SA2 [...] City/State/ZIP Code Phon e Number [facility] [place] [address] [facility] 500 [facility] [address] Building, Room 3-580 HISTOTRAC HLA Lukasz Class I Single Antigen (02/25/2014 10:43 AM CDT) Component Value Ref Test Analysis Performed At [facility] Range Method Time Signature SA1 Test SA [...] City/State/ZIP Code Phon e Number [facility] [place] [address] [facility] 500 [facility] [address] [facility], Room 3-580 HISTOTRAC PRA Interfering Substance SCR (02/25/2014 10:43 AM CDT) Component Value Ref Test Analysis Performed At [facility] Range Method Time Signature Interfering Luminex HISTOTRAC [...] City/State/ZIP Code Phon e Number [facility] [place] [address] [facility] 500 [facility] [address] Building, Room 3-580 HISTOTRAC Tacrolimus level (02/21/2014 8:45 AM CDT) [facility] gist Method Time Signature Tacrolimus Last 02/20/[address] [facility] [address] [facility] Tacrolimus 7.9 5.0 - [facility] Level 15.0 ug/L ST. [...] Phon e Number [facility] 500 [place], [place] [phone] [place] [address] LABS documented in this encounter Visit Diagnoses Not on filedocumented in this encounter Care Teams Director Of Grants Relationship Specialty Start Date End Date Momo Forbes PCP - General Family Practice 01/02/14 [facility] 1999 [place] [address] Ingrid Santana, RN Registered Nurse Transplant 02/10/12 documented as of this encounter
--- OUTSIDE RECORDS SUMMARY | 2022-05-24 11:52 | XMS_ITS | Encounter Summary ---
:1950 Author Organization [place] Address [address] [place] [address] Care Team Providers Name Role Phone Ingrid Santana RN Unavailable Unavailable Momo Forbes Primary Care Provider Encounter Details Date Type Department Care Team Description 03/11/2014 Anesthesia Event Formerly [facility] Aly Esquivel MD PeriOp Services 420 [facility] 500 [facility] 294 [place] [address] [place] [address] [phone] (Wo rk) Anesthesia Record Procedure Summary Procedure [...] benefits and alternatives discussed with: patient or artists' booking representative. Possibility of blood products discussed. Procedures [...] on filedocumented in this encounter Care Teams Paid Search Manager Relationship Specialty Start Date End Date Momo Forbes PCP - General Family Practice 01/02/14 [facility] [address] [place] [address] Ingrid Santana, RN Registered Nurse Transplant 02/10/12 documented as of this encounter
--- OUTSIDE RECORDS SUMMARY | 2022-05-24 11:52 | XMS_ITS | Encounter Summary ---
:1950 Author Organization [place] Address 2450 [facility]. [address] Care Team Providers Name Role Phone Ingrid Santana RN Unavailable Unavailable Momo Forbes Primary Care Provider Reason for Referral Specialty Diagnoses / Procedures Referred By Contact Refer red To Contact Migel Merchant MD 420 [facility] 195 [place], [place] [address] Referral ID Status Reason Start Date Expiration Date Visits Requ ested Visits Authorized Scheduling Instructions ANTICOAGULATION CLINIC COLLABORATIVE PRA CTICE AGREEMENT The following represents a collaborative practice agreement among the physicians of the Clinic and staff of the Anticoagulat ion Clinic Service ([facility]) Physicians shall: 1. Refer patients requiring anticoagulat ion to a specialty service staffed by personnel of Pharmacy Services and super vised by Clinic physicians. 2. Respond to questions and referrals fr pharmacy staff regarding delinquent or difficult patients. 3. Inform the [facility] staff when a new patie nt is [...] of adverse or sub-therapeutic effects including at [facility] the following: Has the patient experienced [...] Department Care Team Description 03/29/2014 Orders Only [facility] Migel Merchanta dylan fibrillation (H) (Primary Dx); Anticoagulation Clin ic MD Nathan intermediate school teacher (current) use of anticoagulant s [address] 420 [facility] [id number] [place], [place] [address] Social History Tobacco Use Types Packs/Day Years [...] Routine Atrial fibri llation (H) Ordered: 03/29/2014 Merchandising Consultant (Current) Use Of Anticoagulants documented as of this encounter Visit Diagnoses Diagnosis Atrial fibrillation (H) - Primary Atrial fibrillation retirement (current) use of anticoagulant s Long-term (current) use of anticoagulant s documented in this encounter Care Teams Showroom Executive Director Relationship Specialty Start Date End Date Momo Forbes PCP - General Family Practice 01/02/14 [facility] [address] [place] [address] Ingrid Santana, RN Registered Nurse Transplant 02/10/12 documented as of this encounter
--- OUTSIDE RECORDS SUMMARY | 2022-05-24 11:52 | XMS_ITS | Encounter Summary ---
:1950 Author Organization [place] Address [address] [place] [address]. [place] [address] Care Team Providers Name Role Phone Ingrid Santana RN Unavailable Unavailable Momo Forbes Primary Care Provider Encounter Details Date Type Department Care Team Description 03/18/2014 Orders Only Nephrology Shiva Kahn RN -donor kidney 2nd Floor, Clinic 2A [facility] transplant recipient Tommy Ruizteen [address] [place] [address] [place] [phone] Social History Tobacco Use Types Packs/Day Years [...] transplant documented in this encounter Care Teams Procurement Clerk Relationship Specialty Start Date End Date Momo Forbes PCP - General Family Practice 01/02/14 [facility] [address] [place] [address] Ingrid Santana, RN Registered Nurse Transplant 02/10/12 documented as of this encounter
--- OUTSIDE RECORDS SUMMARY | 2022-05-24 11:52 | XMS_ITS | Encounter Summary ---
:1950 Author Organization [place] Address [facility] [place] [address] Care Team Providers Name Role Phone Ingrid Santana RN Unavailable Unavailable Momo Forbes Primary Care Provider Reason for Visit Reason Onset Date Comments Anticoagulation 03/29/2014 Encounter Details Date Type Department Care Team Description 03/29/2014 Telephone [facility] Mary Sheffield RN Anticoagulation Anticoagulation Clin [place] [phone] Social History Tobacco Use Types Packs/Day [...] \this patient. He has INRs done at [facility] He takes Warfarin 5 mg [...] filedocumented in this encounter Care Teams Varnish Cooker Relationship Specialty Start Date End Date Momo Forbes PCP - General Family Practice 01/02/14 [facility] [address] [place] [address] Ingrid Santana, RN Registered Nurse Transplant 02/10/12 documented as of this encounter
--- OUTSIDE RECORDS SUMMARY | 2022-05-24 11:52 | XMS_ITS | Encounter Summary ---
:1950 Author Organization [place] Address [facility] [place] [address] Care Team Providers Name Role Phone Ingrid Santana RN Unavailable Unavailable Momo Forbes Primary Care Provider Reason for Visit Reason Onset Date Comments Pre Visit Planning - Done 03/08/2014 Appointment on 03/11/2014 Encounter Details Date Type Department Care Team Description 03/08/2014 Telephone Nephrology Alexandria Caldera Pre Visit Planning - 2nd Floor, Clinic 2A [employer] Done (Appointment on Sanders Akila 03/11/20 14) [address] [phone] Social History Tobacco Use Types Packs/Day Years [...] bring list of medications. Toldpatient to call [phone] if any questions or needs to reschedule. Alexandria Caldera CMA documented in this encounter Plan of Treatment Not on filedocumented as of this encounter Visit Diagnoses Not on filedocumented in this encounter Care Teams Router Setter Relationship Specialty Start Date End Date Momo Forbes PCP - General Family Practice 01/02/14 [facility] 1999 [place] [address] Ingrid [place]at[place], RN Registered Nurse Transplant 02/10/12 documented as of this encounter
--- OUTSIDE RECORDS SUMMARY | 2022-05-24 11:52 | XMS_ITS | Encounter Summary ---
:1950 Author Organization [place] Address [facility] [place] [address] Care Team Providers Name Role Phone Ingrid Santana RN Unavailable Unavailable Momo Forbes Primary Care Provider Reason for Visit Reason Onset Date Comments Patient Reminder 03/26/2014 Encounter Details Date Type Department Care Team Description 03/26/2014 Telephone Nephrology Yesenia Clements CMA Patient Reminder 2nd Floor, Clinic 2A [place] [phone] Social History Tobacco Use Types Packs/Day [...] filedocumented in this encounter Care Teams Career Development Associate Relationship Specialty Start Date End Date Momo Forbes PCP - General Family Practice 01/02/14 [facility] 1999 [place] [phone] Ingrid Santana, RN Registered Nurse Transplant 02/10/12 documented as of this encounter
--- OUTSIDE RECORDS SUMMARY | 2022-05-24 11:52 | XMS_ITS | Encounter Summary ---
:1950 Author Organization [place] Address [facility] [place] [address] Care Team Providers Name Role Phone Ingrid Santana RN Unavailable Unavailable Momo Forbes Primary Care Provider Reason for Visit Reason Onset Date Comments Previsit 02/20/2014 Encounter Details Date Type Department Care Team Description 02/20/2014 Telephone Transplant Surgery C nanda Merchant, Migel Evans MD Previsit 2nd Floor, Clinic 2A [address] [place] [address] [facility] [place] [phone] Social History Tobacco Use Types Packs/Day Years [...] filedocumented in this encounter Care Teams Business Analyst Relationship Specialty Start Date End Date Momo Forbes PCP - General Family Practice 01/02/[address] [address] Ingrid Santana, RN Registered Nurse Transplant 02/10/12 documented as of this encounter
--- OUTSIDE RECORDS SUMMARY | 2022-05-24 11:52 | XMS_ITS | Encounter Summary ---
:1950 Author Organization [place] Address [address] [place] [address]. [place] [address] Care Team Providers Name Role Phone Ingrid Santana RN Unavailable Unavailable Momo Forbes Primary Care Provider Encounter Details Date Type Department Care Team Description 03/19/2014 Orders Only Nephrology Shiva Kahn RN -donor kidney 2nd Floor, Clinic 2A [facility] transplant recipient Tommy Ruizteen [address] [place] [address] [place] [phone] Social History Tobacco Use Types Packs/Day Years [...] transplant documented in this encounter Care Teams Clockmaker Relationship Specialty Start Date End Date Momo Forbes PCP - General Family Practice 01/02/14 [facility] [address] [place] [address] Ingrid Santana, RN Registered Nurse Transplant 02/10/12 documented as of this encounter
--- OUTSIDE RECORDS SUMMARY | 2022-05-24 11:52 | XMS_ITS | Encounter Summary ---
:1950 Author Organization [place] Address [facility] [place] [address] Care Team Providers Name Role Phone Ingrid Santana RN Unavailable Unavailable Momo Forbes Primary Care Provider Reason for Visit Reason Onset Date Comments Refill Request 03/04/2014Augy[facility]uf Encounter Details Date Type Department Care Team Description 03/04/2014 Refill The Transplant Kaitlynn Moreno MD Refill Request 2nd Floor, Clinic 2A [facility] [address] [address] [place], [place] [phone] (Wo rk) [address] [phone] Social History Tobacco Use Types Packs/Day Years [...] Fill Date: 02/08/14 Quantity: 60 [facility] [phone] documented in this encounter Plan of Treatment Not on filedocumented as of this encounter Visit Diagnoses Diagnosis Atrial fibrillation (H) Atrial fibrillation documented in this encounter Care Teams Stunt Double Relationship Specialty Start Date End Date Momo Forbes PCP - General Family Practice 01/02/[address] [address] Ingrid Santana, RN Registered Nurse Transplant 02/10/12 documented as of this encounter
--- OUTSIDE RECORDS SUMMARY | 2022-05-24 11:52 | XMS_ITS | Encounter Summary ---
:1950 Author Organization [place] Address [address] [place] [address]. [place] [address] Care Team Providers Name Role Phone Ingrid Santana RN Unavailable Unavailable Momo Forbes Primary Care Provider Encounter Details Date Type Department Care Team Description 03/13/2014 Orders Only Nephrology Shiva Kahn, Atrial fibrillation (H); 2nd Floor, Clinic 2A RN -donor kidney transplant stefani Wilburn [address] [address] [phone] Social History Tobacco Use Types Packs/Day Years [...] transplant documented in this encounter Care Teams Agricultural Inspector Relationship Specialty Start Date End Date Momo Forbes PCP - General Family Practice 01/02/14 [facility] [address] [place] [address] Ingrid Santana, RN Registered Nurse Transplant 02/10/12 documented as of this encounter
--- OUTSIDE RECORDS SUMMARY | 2022-05-24 11:53 | XMS_ITS | Encounter Summary ---
:1950 Author Organization [place] Address [facility]0 [facility] [place] [address] Care Team Providers Name Role Phone Ingrid Santana RN Unavailable Unavailable Momo Forbes Primary Care Provider Reason for Visit Reason Comments Eval/Assessment LBA Encounter Details Date Type Department Care Team Description 02/11/2014 Infusion Therapy Specialty Infusion Finger, Migel Mac y replaced by Visit and Procedure MD Nathan transplant (Primary Center [address] [place] [address] Dx) [facility] [address] [facility] 2nd Floor [address] [phone] [place], [place] (Work[place] [phone] Social History Tobacco Use [...] Thank you for choosing [facility] ([facility]) for your transplant cares. The [...] regarding the result at your appointment in [facility] tomorrow. We look forward in seeing you on your next appointment here at [facility]. Please don???t hesitate to callus at [phone] to reschedule any of your appointments or to speak with one of the [facility] registered nurses. It was a pleasure taking care of you today. Sincerely, Gladis Olvera, BOGDAN [facility] [address] [place] [address] documented in this encounter Progress Notes Gladis Olvera, RN - 02/11/2014 8:43 AM CDT Diego Guthrie came to [facility] today for a lab and assess following a Kidney transplant on 02/02/14. Discharge date: 02/08/14 recreation program coordinator: Leandro Kahn Phone number patient can be reached at: [phone] Physical Assessment: See physical assessment located under Document Flowsheets. Incision site: Dry dressing with modesta. Dressing changed. Small amt oozing, Small amt ecchymosis. Pt instructed on signs/symptoms of infection. Some swelling under incision, pt has known hematoma andwill have a renal ultrasound today at 2pm. Lines: MARGARET drain to bulb suction, serosanguinous drainage. 20 ml at [facility] appointment today. Gibbs: n/a Urine clarity: clear per patient report Hydration: discussed drinking 2-3 L daily Nutrition: Pt states appetite is improving Last BM: 02/10/14 evening Pain: 2 at rest, 5 with activity. Pain adequately controlled with home medications Laboratory tests: Standard labs drawn. Plan of care for today: Pt presents to [facility] for Labs & Assessment following Kid Txp on 02/02/14. Pt's creatinine up to 1.97 today, but ok per Dr. Leon considering the complications with transplant. Hgb 7.4 and pt c/o slight fatigue. Discussed with Dr. Leon and will hold off on a transfusion for now, but will continue to monitor hgb at [facility] appointments over the next 2 days. INR 2.23, EKG obtained and pt found to be in Normal Sinus Rhythm. Pt will remain on coumadin for now and will follow up with a equine dentist near [facility]. Continue daily INRs while pt is coming to [facility]. Pt's MARGARET continues to drain [...] Discharge Plan Pt will follow up with [facility] tomorrow. 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/Ladle Operator verbalized understanding, all questions answered: YES [...] Results Tacrolimus level (02/11/2014 7:40 AM CDT) [facility] gist Method Time Signature Tacrolimus Last 02/10/14 [facility] Dose 2000 [facility] LABS Tacrolimus 12.2 5.0 - [facility] Level 15.0 ug/L [place] [...] Phon e Number [facility] [address] [place], [place] [id number] [place] [address] LABS (ABNORMAL) CBC with platelets differential (02/11/2014 7:40 AM CDT) [facility] gist Method Time Signature WBC 4.4 4.0 - [facility] 11.0 [facility]ITY 10e9/L [place] LABS RBC Count 2.39 (L) 4.4 - 5.9 [facility] 10e12/L [facility] LABS Hemoglobin 7.4 (L) 13.3 - [facility] 17.7 g/dL [facility] LABS Hematocrit 22.1 (L) 40.0 - [facility] 53.0 % [facility]S MCV 93 78 - 100 [facility] fl [facility] LABS MCH 31.0 26.5 - [facility] 33.0 pg [facility] LABS MCHC 33.5 31.5 - [facility] 36.5 g/dL [facility] LABS RDW 14.7 10.0 - [facility] 15.0 % [facility]S Platelet Count 83 (L) 150 - 450 [facility] 10e9/L [facility] LABS Diff Method Automated [facility] Method [facility] LABS % Neutrophils 80.4 % [facility] LABS % Lymphocytes 8.2 % [facility] LABS % Monocytes 5.2 % [facility] LABS % Eosinophils 5.7 % [facility] LABS % Basophils 0.0 % [facility] LABS % Immature 0.5 % [facility] Granulocytes [facility] LABS Absolute 3.5 1.6 - [...] 0.0 0 - 0.4 [facility] Granulocytes 10e9/L [facility] LABS Specimen Anatomical Collection Method Collection Time Receive d Time (Source) Location / / Volume Laterality Blood specimen 02/11/2014 7:40 AM 014 7:41 (specimen) CDT AM CDT Kaitlynn Leon MD LAB - BLOOD ORDERABLES Performing Organization Address City/[facility]/ZIP Code Phon e Number [facility] [address] LABS (ABNORMAL) Phosphorus (02/11/2014 7:40 AM CDT) P athologist Signature Phosphorus 1.9 (L) 2.5 - 4.5 [facility] mg/dL [place] LABS Specimen Anatomical Collection Method Collection Time Receive d Time (Source) Location / / Volume Laterality Blood specimen 02/11/2014 7:40 AM 014 7:41 (specimen) CDT AM CDT Kaitlynn Leon MD LAB - BLOOD ORDERABLES Performing Organization Address City/State/ZIP Code Phon e Number [facility] [address] LABS Magnesium (02/11/2014 7:40 AM CDT) P athologist Signature Magnesium 1.9 1.6 - 2.3 [facility] mg/dL CAMPUS LABS Specimen Anatomical Collection Method Collection Time Receive d Time (Source) Location / / Volume Laterality Blood specimen 02/11/2014 7:40 AM 014 7:41 (specimen) CDT AM CDT Kaitlynn Leon MD LAB - BLOOD ORDERABLES Performing Organization Address City/State/ZIP Code Phon e Number [facility] [address] [place], [place] [id number] [place] [address] LABS (ABNORMAL) Basic metabolic panel (02/11/2014 7:40 AM CDT) [facility] gist Method Time Signature Sodium 142 133 - 144 [facility] mmol/L [facility] LABS Potassium 5.4 (H) 3.4 - 5.3 [facility] mmol/L [facility] [place] [facility] Chloride 113 (H) 94 - 109 [facility] mmol/L [facility] LABS Carbon Dioxide 22 20 - 32 [facility] mmol/L [facility] LABS Anion Gap 8 6 - 17 [facility] mmol/L [facility] LABS Glucose 155 (H) 60 - 99 [facility] mg/dL [facility] LABS Urea Nitrogen 31 (H) 7 - 30 [facility] mg/dL [facility] LABS Creatinine 1.97 (H) 0.66 - [facility] 1.25 mg/dL [facility] LABS GFR Estimate 35 (L) >60 [facility] mL/min/1.7 [place] m2 CAMPUS LABS GFR Estimate If 42 (L) >60 [facility] Black mL/min/1.7 [place] m2 [facility]AMPUS LABS Calcium 9.1 8.5 - 10.4 [facility] mg/dL [facility] LABS Specimen Anatomical Collection Method Collection Time Receive d Time (Source) Location / / Volume Laterality Blood specimen 02/11/2014 7:40 AM 014 7:41 (specimen) CDT AM CDT Kaitlynn Leon MD LAB - BLOOD ORDERABLES Performing Organization Address City/State/ZIP Code Phon e Number [id number] [place] [address] [facility] LABS documented in this encounter Visit Diagnoses Diagnosis Kidney replaced by transplant - Primary documented in this encounter Care Teams Auto Transport Driver Relationship Specialty Start Date End Date Momo Forbes PCP - General Family Practice 01/02/14 [facility] [address] [place] [address] Ingrid Santana, RN Registered Nurse Transplant 02/10/12 documented as of this encounter
--- OUTSIDE RECORDS SUMMARY | 2022-05-24 11:53 | XMS_ITS | Encounter Summary ---
:1950 Author Organization [place] Address [facility]0 [facility] [place] [address] Care Team Providers Name Role Phone Ingrid Santana RN Unavailable Unavailable Momo Forbes Primary Care Provider Encounter Details Date Type Department Care Team Description 02/11/2014 Radiant Appointment [facility] 1st Floor, Clinic [address] [place], [place] [address] Social History Tobacco Use Types Packs/Day Years [...] filedocumented in this encounter Care Teams Business Continuity Analyst Relationship Specialty Start Date End Date Momo Forbes PCP - General Family Practice 01/02/14 [facility] [address] [place] [address] Ingrid Santana, RN Registered Nurse Transplant 02/10/12 documented as of this encounter
--- OUTSIDE RECORDS SUMMARY | 2022-05-24 11:53 | XMS_ITS | Encounter Summary ---
:1950 Author Organization [place] Address [facility]0 [facility] [place] [address] Care Team Providers Name Role Phone Ingrid Santana RN Unavailable Unavailable Momo Forbes Primary Care Provider Reason for Visit Reason Comments Eval/Assessment LBA Encounter Details Date Type Department Care Team Description 02/09/2014 Infusion Therapy Specialty Infusion Finger, Migel Mac y replaced by transplant (Primary Dx); Visit and Procedure MD Nathan [facility] [address] [place] [address] [phone] [place], [place] (Work) [phone] Social History Tobacco Use [...] Dear Diego Guthrie Thank you for choosing [facility] ([facility]) for your transplant cares. The following [...] Bring Humulog Insulin Pen to your future [facility] appointments. 5) Return to [facility] tomorrow at 07:30 a.m We look forward in seeing you on your next appointment here at [facility]. Please don???t hesitate to callus at [phone] to reschedule any of your appointments or to speak with one of the [facility] registered nurses. It was a pleasure taking care of you today. Sincerely, MARC HERNANDEZ RN [facility] [address] [place] [address]. [place] [address] Coumadin Information: Keep Your Diet Steady Keep [...] 7:31 AM CDT Diego Guthrie came to [facility] today for a lab and assess following a Kidney transplant on 02/02/14. Discharge date: 02/08/14 sports coordinator: Leandro Kahn Phone number patient can be reached at: [phone] Physical Assessment: See physical assessment located under [...] 1L of NS today, d/c pt from [facility] post 1L NS, return to [facility] tomorrow for LBA, No change in [...] Phone numbers to call with concenrs (sports coordinator, [address] and [facility]) Patient verbalized understanding and all questions answered. Drug level: Prograf level today reviewed with Dr Hernandes who gave orders to no change in dose. INR of 1.59 also reviewed w/Dr Hernandes who gave orders to increase Coumadin to 7.5mg QD. Patient was updated with this information and verbalized understanding. Discharge Plan Pt will follow up with [facility] tomorrow at 0730. Bring Humulog Insulin Pen to [facility] today (pt did not bring to today's appt). 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/Quality Control Lab Technician verbalized understanding, all questions answered: YES [...] Signature INR 1.59 (H) 0.86 - 1.14 [facility] LABS Specimen Anatomical Collection Method Collection Time Receive d Time (Source) Location / / Volume Laterality Blood specimen 02/09/2014 8:30 AM 014 (specimen) CDT 11:07 AM CDT Migel Merchant MD LAB - BLOOD ORDERABLES Performing Organization Address City/State/ZIP Code Phon e Number [facility] [address] [place] [address] [facility] LABS Tacrolimus level (02/09/2014 7:40 AM CDT) [facility] gist Method Time Signature Tacrolimus Not Provided [facility] Last Dose [facility] LABS Tacrolimus 8.0 5.0 - [facility] Level 15.0 ug/L [facility] LABS Comment: Tacrolimus Reference Range Kidney Transplant [...] Phon e Number [facility] [address] [place] [address] [facility]) CBC with platelets differential (02/09/2014 7:40 AM CDT) [facility] gist Method Time Signature WBC 5.8 4.0 - [facility] 11.0 UN[facility]ERSITY 10e9/L CAMPUS LABS RBC Count 2.66 (L) 4.4 - 5.9 [facility] 10e12/L [facility] LABS Hemoglobin 8.2 (L) 13.3 - [facility] 17.7 g/dL [facility] LABS Hematocrit 24.4 (L) 40.0 - [facility] 53.0 % [facility] LABS MCV 92 78 - 100 [facility] fl [facility] LABS MCH 30.8 26.5 - [facility] 33.0 pg [facility] LABS MCHC 33.6 31.5 - [facility] 36.5 g/dL [facility] LABS RDW 14.6 10.0 - [facility] 15.0 % [facility] LABS Platelet Count 78 (L) 150 - 450 [facility] 10e9/L [facility] LABS Diff Method Automated [facility] Method [facility] LABS % Neutrophils 84.8 % [facility] LABS % Lymphocytes 5.2 % [facility] LABS % Monocytes 6.9 % [facility] LABS % Eosinophils 2.9 % [facility] % Basophils 0.0 % [facility] % Immature 0.2 % [facility] Granulocytes [facility] LABS Absolute 4.9 1.6 - 8.3 [facility] Neutrophil 10e9/L [facility] LABS Absolute 0.3 (L) 0.8 - 5.3 [facility] Lymphocytes 10e9/L [facility] LABS Absolute 0.4 0.0 - 1.3 [facility] Monocytes 10e9/L [facility] LABS Absolute 0.2 0.0 - 0.7 [facility] Eosinophils 10e9/L [facility] LABS Absolute 0.0 0.0 - 0.2 [facility] Basophils 10e9/L [facility] LABS Abs Immature 0.0 0 - 0.4 [facility] Granulocytes 10e9/L [facility] LABS Specimen Anatomical Collection Method Collection Time Receive d Time (Source) Location / / Volume Laterality Blood specimen 02/09/2014 7:40 AM 014 7:49 (specimen) CDT AM CDT Migel Merchant MD LAB - BLOOD ORDERABLES Performing Organization Address City/State/ZIP Code Phon e Number [facility] [address] [place], [place] [phone] [place] [address] LABS (ABNORMAL) Phosphorus (02/09/2014 7:40 AM CDT) athologist Signature Phosphorus 2.0 (L) 2.5 - 4.5 [facility] UNIVERSITY mg/dL CAMPUS LABS Specimen Anatomical Collection Method Collection Time Receive d Time (Source) Location / / Volume Laterality Blood specimen 02/09/2014 7:40 AM 014 7:49 (specimen) CDT AM CDT Migel Merchant MD LAB - BLOOD ORDERABLES Performing Organization Address City/[facility] Code Phon e Number [facility] [address] LABS Magnesium (02/09/2014 7:40 AM CDT) athologist Signature Magnesium 1.9 1.6 - 2.3 [facility] [place] mg/dL CAMPUS LABS Specimen Anatomical Collection Method Collection Time Receive d Time (Source) Location / / Volume Laterality Blood specimen 02/09/2014 7:40 AM 014 7:49 (specimen) CDT AM CDT Migel Merchant MD LAB - BLOOD ORDERABLES Performing Organization Address City/State/ZIP Code Phon e Number [facility] [address] LABS (ABNORMAL) Basic metabolic panel (02/09/2014 7:40 AM CDT) [facility] Method Time Signature Sodium 145 (H) 133 - 144 [facility] mmol/L [facility] LABS Potassium 4.5 3.4 - 5.3 [facility] mmol/L [facility] LABS Chloride 110 (H) 94 - 109 [facility] mmol/L [facility] LABS Carbon Dioxide 24 20 - 32 [facility] mmol/L [facility] LABS Anion Gap 10 6 - 17 [facility] mmol/L [facility] LABS Glucose 137 (H) 60 - 99 [facility] mg/dL [facility] LABS Urea Nitrogen 48 (H) 7 - 30 [facility] mg/dL [facility] LABS Creatinine 2.02 (H) 0.66 - [facility] 1.25 mg/dL [facility] LABS GFR Estimate 34 (L) >60 [facility] mL/min/1.7 [place] m2 [facility]AMP[facility] LABS GFR Estimate If 41 (L) >60 [facility] Black mL/min/1.7 [place] m2 CAMPUS LABS Calcium 9.2 8.5 - 10.4 [facility] mg/dL [facility] LABS Specimen Anatomical Collection Method Collection Time Receive d Time (Source) Location / / Volume Laterality Blood specimen 02/09/2014 7:40 AM 014 7:49 (specimen) CDT AM CDT Migel Merchant MD LAB - BLOOD ORDERABLES Performing Organization Address City/State/ZIP Code Phon e Number [facility] [address] [place] [address] [facility] LABS documented in this encounter Visit Diagnoses [...] dose documented in this encounter Care Teams Java Web User Interface Developer Relationship Specialty Start Date End Date Momo Forbes PCP - General Family Practice 01/02/14 [facility] [address] [place] [address] Ingrid Santana, RN Registered Nurse Transplant 02/10/12 documented as of this encounter
--- OUTSIDE RECORDS SUMMARY | 2022-05-24 11:53 | XMS_ITS | Encounter Summary ---
:1950 Author Organization [place] Address [address] [place] [address]. [place] [address] Care Team Providers Name Role Phone Ingrid Santana RN Unavailable Unavailable Momo Forbes Primary Care Provider Reason for Visit Reason Onset Date Comments Refill Request 02/11/2014 Encounter Details Date Type Department Care Team Description 02/11/2014 Refill Nephrology Isa Ly RN Refill Request 2nd Floor, Clinic [address] [place] [phone] Social History Tobacco Use Types Packs/Day [...] transplant documented in this encounter Care Teams Roads Supervisor Relationship Specialty Start Date End Date Momo Forbes PCP - General Family Practice 01/02/14 [facility] [address] [place] [address] Ingrid Santana RN Registered Nurse Transplant 6/21/12 2/10/ 16 documented as of this encounter
--- OUTSIDE RECORDS SUMMARY | 2022-05-24 11:53 | XMS_ITS | Encounter Summary ---
:1950 Author Organization [place] Address [facility] [place] [address] Care Team Providers Name Role Phone Ignrid Santana RN Unavailable Unavailable Momo Forbes Primary Care Provider Reason for Visit Reason Comments Eval/Assessment LABS, ASSESSMENT, EDUCATION AND DRESSING CHANGE. Encounter Details Date Type Department Care Team Description 02/14/2014 Infusion Therapy Specialty Infusion Kaitlynn Leon MD Kidney replaced by transplant (Primary D x); Visit and Procedure Center [facility] [place]/P [place] transplant [facility] [address] [phone] [place], [place] (Work) [phone] Social History Tobacco Use [...] 3:25 PM CDT Diego Guthrie came to [facility] today for a lab and assess following a Kidney transplant on 02/02/14. Discharge date: 02/08/14 leave coordinator: Leandro Manson Phone number patient can be reached at: [phone] Physical Assessment: See physical assessment located under [...] Tuesday. 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/Director Of Plant Operations verbalized understanding, all questions answered: YES Discharged [...] Signature INR 2.29 (H) 0.86 - 1.14 [facility] LABS Specimen Anatomical Collection Method Collection Time Receive d Time (Source) Location / / Volume Laterality Blood specimen 02/14/2014 7:51 AM 014 7:58 (specimen) CDT AM CDT Kaitlynn Leon MD LAB - BLOOD ORDERABLES Performing Organization Address City/State/ZIP Code Phon e Number [facility] [address] [place], [place] [id number] [place] [address] LABS Tacrolimus level (02/14/2014 7:51 AM CDT) [facility] gist Method Time Signature Tacrolimus Last 1914 [facility] Dose 02/13/14 [facility] LABS Tacrolimus 7.5 5.0 - [facility] Level 15.0 ug/L [facility] LABS Comment: Tacrolimus Reference Range Kidney Transplant [...] e Number [facility] [address] [place], [place] [id number] [place] [address] LABS (ABNORMAL) CBC with platelets differential (02/14/2014 7:51 AM CDT) [facility] gist Method Time Signature WBC 6.9 4.0 - [facility] 11.0 [place] 10e9/L [place] LABS RBC Count 2.55 (L) 4.4 - 5.9 [facility] 10e12/L [facility] LABS Hemoglobin 7.8 (L) 13.3 - [facility] 17.7 g/dL [facility] LABS Hematocrit 23.4 (L) 40.0 - [facility] 53.0 % [facility] LABS MCV 92 78 - 100 [facility] fl [facility] LABS MCH 30.6 26.5 - [facility] 33.0 pg [facility] LABS MCHC 33.3 31.5 - [facility] 36.5 g/dL [facility] LABS RDW 14.9 10.0 - [facility] 15.0 % [facility] LABS Platelet Count 122 (L) 150 - 450 [facility] 10e9/L [facility] LABS Diff Method Automated [facility] Method [facility] LABS % Neutrophils 88.7 % [facility] LABS % Lymphocytes 2.6 % [facility] LABS % Monocytes 4.5 % [facility] % Eosinophils 3.8 % [facility] % Basophils 0.1 % [facility] LABS % Immature 0.3 % [facility] Granulocytes [facility] LABS Absolute 6.1 1.6 - 8.3 [facility] Neutrophil 10e9/L [facility] LABS Absolute 0.2 (L) 0.8 - 5.3 [facility] Lymphocytes 10e9/L [facility] LABS Absolute 0.3 0.0 - 1.3 [facility] Monocytes 10e9/L [facility] LABS Absolute 0.3 0.0 - 0.7 [facility] Eosinophils 10e9/L [facility] LABS Absolute 0.0 0.0 - 0.2 [facility] Basophils 10e9/L [facility] LABS Abs Immature 0.0 0 - 0.4 [facility] Granulocytes 10e9/L [facility] LABS Specimen Anatomical Collection Method Collection Time Receive d Time (Source) Location / / Volume Laterality Blood specimen 02/14/2014 7:51 AM 014 7:53 (specimen) CDT AM CDT Joseph Quintana MD LAB - BLOOD ORDERABLES Performing Organization Address City/[facility]/ZIP Code Phon e Number [address] LABS (ABNORMAL) Phosphorus (02/14/2014 7:51 AM CDT) P athologist Signature Phosphorus 2.4 (L) 2.5 - 4.5 [facility] mg/dL CAMPUS LABS Specimen Anatomical Collection Method Collection Time Receive d Time (Source) Location / / Volume Laterality Blood specimen 02/14/2014 7:51 AM 014 7:53 (specimen) CDT AM CDT Joseph Quintana MD LAB - BLOOD ORDERABLES Performing Organization Address City/[facility]/ZIP Code Phon e Number [address] LABS Magnesium (02/14/2014 7:51 AM CDT) P athologist Signature Magnesium 1.6 1.6 - 2.3 [facility] mg/dL CAMPUS LABS Specimen Anatomical Collection Method Collection Time Receive d Time (Source) Location / / Volume Laterality Blood specimen 02/14/2014 7:51 AM 014 7:53 (specimen) CDT AM CDT Joseph Quintana MD LAB - BLOOD ORDERABLES Performing Organization Address City/[facility] Code Phon e Number [facility] [address] [place], [place] [phone] [place] [address] LABS (ABNORMAL) Basic metabolic panel (02/14/2014 7:51 AM CDT) Patholo gist Method Time Signature Sodium 143 133 - 144 [facility] mmol/L [facility] LABS Potassium 5.4 (H) 3.4 - 5.3 [facility] mmol/L [facility] LABS Chloride 113 (H) 94 - 109 [facility] mmol/L [facility] LABS Carbon Dioxide 20 20 - 32 [facility] mmol/L [facility] LABS Anion Gap 9 6 - 17 [facility] mmol/L [facility] LABS Glucose 193 (H) 60 - 99 [facility] mg/dL [facility] LABS Urea Nitrogen 18 7 - 30 [facility] mg/dL [facility] LABS Creatinine 1.82 (H) 0.66 - [facility] 1.25 mg/dL [facility] LABS GFR Estimate 38 (L) >60 [facility] mL/min/1.7 [place] m2 CAMPUS LABS GFR Estimate If 46 (L) >60 [facility] Black mL/min/1.7 [place] m2 [place] LABS Calcium 9.2 8.5 - 10.4 [facility] mg/dL [facility] LABS Specimen Anatomical Collection Method Collection Time Receive d Time (Source) Location / / Volume Laterality Blood specimen 02/14/2014 7:51 AM 014 7:53 (specimen) CDT AM CDT Joseph Quintana MD LAB - BLOOD ORDERABLES Performing Organization Address City/[facility] Code Phon e Number [facility] [address] [place] [address] [facility] LABS documented in this encounter Visit Diagnoses Diagnosis Kidney replaced by transplant - Primary S/P kidney transplant Kidney replaced by transplant documented in this encounter Care Teams Pencil Maker Relationship Specialty Start Date End Date Momo Forbes PCP - General Family Practice 01/02/14 [facility] [address] [place] [address] Ingrid Santana, RN Registered Nurse Transplant 02/10/12 documented as of this encounter
--- OUTSIDE RECORDS SUMMARY | 2022-05-24 11:53 | XMS_ITS | Encounter Summary ---
:1950 Author Organization [place] Address [facility]0 [facility] [place] [address] Care Team Providers Name Role Phone Ingrid Santana RN Unavailable Unavailable Momo Forbes Primary Care Provider Reason for Referral CV Cardio consult - Closed Specialty Diagnoses / Procedures Referred By Contact Refer red To Contact Diagnoses Atrial fibrillation (H) Kaitlynn Leon MD [facility] [place] [address] [place] [address] Fax: Referral ID Status Reason Start Date Expiration Date Visits Requ ested Visits Authorized [id number] Closed 02/12/2014 08/11/2014 1 1 Reason for Visit Reason Comments RECHECK Encounter Details Date Type Department Care Team Description 02/12/2014 Office Visit Specialty Infusion Kaitlynn Leon, S/P liborio olivo transplant (Primary Dx); and Procedure Center Atrial fibrillation (H); [place] [facility] Hypopho sphatemia; [facility] Nausea; 2nd Floor [address] Immunosuppression (H) [address] [place] [address] [place], [place] [phone] (Work) [phone] Social History Tobacco Use Types Packs/Day Years [...] Dear Diego Guthrie Thank you for choosing [facility] Special[facility]fusion [facility] Procedure [facility] ([facility] [...] Tuesday morning, try to reach them at [phone]. We look forward in seeing you on your next appointment here at [facility]. Please don???t hesitate to callus at [phone] to reschedule any of your appointments or to speak with one of the [facility] registered nurses. It was a pleasure taking care of you today. 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
--- OUTSIDE RECORDS SUMMARY | 2022-05-24 11:53 | XMS_ITS | Encounter Summary ---
:1950 Author Organization [place] Address [address] [place] [address]. [place] [address] Care Team Providers Name Role Phone Ingrid Santana RN Unavailable Unavailable Momo Forbes Primary Care Provider Reason for Visit Reason Onset Date Comments Refill Request 02/15/2014 Encounter Details Date Type Department Care Team Description 02/15/2014 Refill Nephrology Shiva Kahn RN Refill Request 2nd Floor, Clinic 2A [facility] [place] [address] [facility]2 [place], [place] [phone] [place] [address] [place] [phone] Social History Tobacco Use Types Packs/Day [...] on filedocumented in this encounter Care Teams Knowledge Analyst Relationship Specialty Start Date End Date Momo Forbes PCP - General Family Practice 01/02/14 [facility] [address] [place] [address] Ingrid Santana, RN Registered Nurse Transplant 02/10/12 documented as of this encounter
--- OUTSIDE RECORDS SUMMARY | 2022-05-24 11:53 | XMS_ITS | Encounter Summary ---
:1950 Author Organization [place] Address [facility] [place] [address] Care Team Providers Name Role Phone Ingrid Santana RN Unavailable Unavailable Momo Forbes Primary Care Provider Reason for Visit Reason Comments Eval/Assessment LBA Encounter Details Date Type Department Care Team Description 02/12/2014 Infusion Therapy Specialty Infusion Finger, Migel Mac y replaced by Visit and Procedure MD Nathan transplant (Primary Center [address] [place] [address] Dx) [facility] 19 [address] [facility] 2nd Floor [address] [phone] [place], [place] (Work) [address] Social History Tobacco Use [...] Dear Diego Guthrie Thank you for choosing [facility]icians Specialty Infusion and Procedure Center ([facility]) for your transplant cares. The following information is a summary of our appointment as well as important reminders. Additional information: We will see you on for labs & assessment. We look forward in seeing you on your next appointment here at [facility]. Please don???t hesitate to callus at [phone] to reschedule any of your appointments or to speak with one of the [facility] registered nurses. It was a pleasure taking care of you today. Sincerely, Gladis Olvera, BOGDAN [facility] Physicians Specialty Infusion & Procedure Center [facility] - [address] [place] [address] January 2014Tuesday 1 2 3 4 5 6 7 8 9 10 11 12 13 14 Admission 12:55 PM Migel Merchant MD [address] [facility] (Discharge: 02/08/2014) XR CHEST 2 VIEWS 1:55 [...] 11:00 AM (120 min.) Josseline Almendarez, BOGDAN [facility], [facility] [place] UU TRANSPLANT FOLLOW-UP CARE 1:00 PM (120 min.) Josseline Almendarez RN [facility], [facility] [place] ECH LIMITED 3:35 PM (60 min.) Uuechipr1 [...] 11:00 AM (120 min.) Em Mohan RN [facility] [place] [address] [facility] NEW TRANSPLANT 7:00 AM (360 min.) [facility] Sipc Chair 9 Specialty Infusion and Procedure Center [address] [facility] NEW TRANSPLANT 7:00 AM (360 min.) [facility] Sipc Chair 11 Specialty Infusion and Procedure Center [address] [facility] NEW TRANSPLANT 7:00 AM (360 min.) [facility] Sip Chair 12 Specialty Infusion and Procedure Center [facility] KIDNEY TX DISCHARGE 9:00 AM (30 min.) Kaitlynn Leon MD Specialty Infusion and Procedure Center US RENAL TRANSPLANT 2:00 PM (60 min.) [address] [facility] NEW TRANSPLANT 7:00 AM (360 min.) [facility] Sipc Bed 14 Specialty Infusion and Procedure Center [facility] SIPC RETURN 9:00 AM (30 min.) Kaitlynn Leon MD Specialty Infusion [facility] Procedure Center [address] [facility] SIPC PROCEDURE 7:00 AM (60 min.) [facility] Sipc Chair 9 Specialty Infusion and Procedure Center [facility] SIPC RETURN 8:00 AM (30 min.) Kaitlynn Leon MD Specialty Infusion and Procedure Center 27 28 29 30 P NEW 9:00 AM (30 min.) [facility] Cvc Consult [facility] Physicians Heart [facility] [...] 4:27 PM CDT Diego Guthrie came to [facility] today for a lab and assess following a Kidney transplant on 02/02/14. Discharge date: 02/08/14 complaints coordinator: Leandro Kahn Phone number patient can be reached at: [phone] Physical Assessment: See physical assessment located under Document Flowsheets. Incision site: with modesta & slight ecchymosis. Dry dressing changed. Lines: MARGARET drain to bulb suction is draining sero sanguinous fluid. Continues to drain more than 30 ml/day. Pt will have Tuesday off from [facility] and will return for LBA. Gibbs: [...] of care for today: Pt presented to [facility] for labs and assessment. Labs drawn, reviewed with Dr. Leon. Oral phosphorus tablets ordered. Coumadin dose decreased to 5 mg every evening. Pt will have Tuesday off, return and will start with [facility] Nursing on TuesdayFebruary 15. Pt's MARGARET [...] Plan Pt will follow up with [facility] on 02/14 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/Anesthesia Assistant verbalized understanding, all questions answered: YES Discharged [...] Signature INR 2.64 (H) 0.86 - 1.14 [facility] LABS Specimen Anatomical Collection Method Collection Time Receive d Time (Source) Location / / Volume Laterality Blood specimen 02/12/2014 7:41 AM 014 7:43 (specimen) CDT AM CDT Kaitlynn Leon MD LAB - BLOOD ORDERABLES Performing Organization Address City/State/ZIP Code Phon e Number [facility] [address] [place] [address] [facility] LABS Tacrolimus level (02/12/2014 7:41 AM CDT) [facility] gist Method Time Signature Tacrolimus Last 02/11/14 [facility] Dose 1900 [facility] LABS Tacrolimus 8.4 5.0 - [facility] Level 15.0 ug/L [facility] LABS Comment: Tacrolimus Reference Range Kidney Transplant [...] Organization Address City/State/ZIP Code Phon e Number [address] [address] [place] [facility] (ABNORMAL) CBC with platelets differential (02/12/2014 7:41 AM CDT) [facility] gist Method Time Signature WBC 5.0 4.0 - [facility] 11.0 [place] 10e9/L [place] LABS RBC Count 2.41 (L) 4.4 - 5.9 [facility] 10e12/L [facility] LABS Hemoglobin 7.4 (L) 13.3 - [facility] 17.7 g/dL [facility] LABS Hematocrit 22.3 (L) 40.0 - [facility] 53.0 % [facility] LABS MCV 93 78 - 100 [facility] fl [facility] LABS MCH 30.7 26.5 - [facility] 33.0 pg [facility] LABS MCHC 33.2 31.5 - [facility] 36.5 g/dL [facility] LABS RDW 14.5 10.0 - [facility] 15.0 % [facility] LABS Platelet Count 95 (L) 150 - 450 [facility] 10e9/L [facility] LABS Diff Method Automated [facility] Method [facility] LABS % Neutrophils 85.2 % [facility] LABS % Lymphocytes 5.6 % [facility] LABS % Monocytes 4.6 % [facility] LABS % Eosinophils 4.2 % [facility] LABS % Basophils 0.2 % [facility] LABS % Immature 0.2 % [facility] Granulocytes [facility] LABS Absolute 4.3 1.6 - 8.3 [facility] Neutrophil 10e9/L [facility] LABS Absolute 0.3 (L) 0.8 - 5.3 [facility] Lymphocytes 10e9/L [facility] LABS Absolute 0.2 0.0 - 1.3 [facility] Monocytes 10e9/L [facility] LABS Absolute 0.2 0.0 - 0.7 [facility] Eosinophils 10e9/L [facility] LABS Absolute 0.0 0.0 - 0.2 [facility] Basophils 10e9/L [facility] LABS Abs Immature 0.0 0 - 0.4 [facility] Granulocytes 10e9/L [facility] LABS Specimen Anatomical Collection Method Collection Time Receive d Time (Source) Location / / Volume Laterality Blood specimen 02/12/2014 7:41 AM 014 7:43 (specimen) CDT AM CDT Kaitlynn Leon MD LAB - BLOOD ORDERABLES Performing Organization Address City/State/ZIP Code Phon e Number [facility] [address] LABS (ABNORMAL) Phosphorus (02/12/2014 7:41 AM CDT) athologist Signature Phosphorus 1.7 (L) 2.5 - 4.5 [facility] mg/dL [place] LABS Specimen Anatomical Collection Method Collection Time Receive d Time (Source) Location / / Volume Laterality Blood specimen 02/12/2014 7:41 AM 014 7:43 (specimen) CDT AM CDT Kaitlynn Leon MD LAB - BLOOD ORDERABLES Performing Organization Address City/State/ZIP Code Phon e Number [facility] [address] LABS Magnesium (02/12/2014 7:41 AM CDT) athologist Signature Magnesium 1.8 1.6 - 2.3 [facility] mg/dL [place] LABS Specimen Anatomical Collection Method Collection Time Receive d Time (Source) Location / / Volume Laterality Blood specimen 02/12/2014 7:41 AM 014 7:43 (specimen) CDT AM CDT Kaitlynn Leon MD LAB - BLOOD ORDERABLES Performing Organization Address City/State/ZIP Code Phon e Number [facility] [address] [place], [place] [phone] [place] [address] LABS (ABNORMAL) Basic metabolic panel (02/12/2014 7:41 AM CDT) [facility] gist Method Time Signature Sodium 142 133 - 144 [facility] mmol/L [facility] LABS Potassium 4.9 3.4 - 5.3 [facility] mmol/L [facility] LABS Chloride 113 (H) 94 - 109 [facility] mmol/L [facility] LABS Carbon Dioxide 21 20 - 32 [facility] mmol/L [facility] LABS Anion Gap 9 6 - 17 [facility] mmol/L [facility] LABS Glucose 127 (H) 60 - 99 [facility] mg/dL [facility] LABS Urea Nitrogen 24 7 - 30 [facility] mg/dL [facility] LABS Creatinine 1.92 (H) 0.66 - [facility] 1.25 mg/dL [facility] LABS GFR Estimate 36 (L) >60 [facility] mL/min/1.7 [place] [address] CAMPUS LABS GFR Estimate If 43 (L) >60 [facility] Black mL/min/1.7 [place] [address] CAMPUS LABS Calcium 8.9 8.5 - 10.4 [facility] mg/dL [facility] LABS Specimen Anatomical Collection Method Collection Time Receive d Time (Source) Location / / Volume Laterality Blood specimen 02/12/2014 7:41 AM 014 7:43 (specimen) CDT AM CDT Kaitlynn Leon MD LAB - BLOOD ORDERABLES Performing Organization Address City/State/ZIP Code Phon e Number [facility] [address] [place] [address] [facility] LABS documented in this encounter Visit Diagnoses [...] after. documented in this encounter Care Teams Truck Driver'S Offsider Relationship Specialty Start Date End Date Momo Forbes PCP - General Family Practice 01/02/14 [facility] [address] [place] [phone] Ingrid Santana, RN Registered Nurse Transplant 02/10/12 documented as of this encounter
--- OUTSIDE RECORDS SUMMARY | 2022-05-24 11:53 | XMS_ITS | Encounter Summary ---
:1950 Author Organization [place] Address [address] [place] [address]. [place] [address] Care Team Providers Name Role Phone Ingrid Santana RN Unavailable Unavailable Momo Forbes Primary Care Provider Encounter Details Date Type Department Care Team Description 02/15/2014 Orders Only Nephrology Shiva Kahn RN Kidney replaced by transplant; 2nd Floor, Clinic 2A [facility] S/P kidney transplant Tommy [address] [place] [phone] Social History Tobacco Use Types Packs/Day Years [...] transplant documented in this encounter Care Teams Advertising Campaign Manager Relationship Specialty Start Date End Date Momo Forbes PCP - General Family Practice 01/02/14 [facility] [address] [place] [address] Ingrid [place], RN Registered Nurse Transplant 02/10/12 documented as of this encounter
--- OUTSIDE RECORDS SUMMARY | 2022-05-24 11:53 | XMS_ITS | Encounter Summary ---
:1950 Author Organization [place] Address [address] [place] [address]. [place] [address] Care Team Providers Name Role Phone Ingrid Santana RN Unavailable Unavailable Momo Forbes Primary Care Provider Reason for Visit Reason Comments Surgical Followup Post op for kidney transplan t POD 16 Encounter Details Date Type Department Care Team Description 02/18/2014 Office Visit Transplant Surgery Migel Merchant S/P jamari y transplant (Primary Dx); Clinic MD Nathan Postop check; 2nd Floor, Clinic [address]A [address] [place] [address] Immunosuppression (H); [facility] 1 95 Atrial fibrillation (H) [phone] [place] [address] [place] (Work) [phone] Social History Tobacco Use [...] Stent: out in ~ 4 weeks 4. Burt. Follow up next Tuesday for staple removal [...] fibrillation documented in this encounter Care Teams Boat Loader Helper Relationship Specialty Start Date End Date Momo Forbes PCP - General Family Practice 01/02/14 [place] [phone] Ingrid Santana, RN Registered Nurse Transplant 02/10/12 documented as of this encounter
--- OUTSIDE RECORDS SUMMARY | 2022-05-24 11:53 | XMS_ITS | Encounter Summary ---
:1950 Author Organization [place] Address [facility]0 [facility] [place] [address] Care Team Providers Name Role Phone Ingrid Santana RN Unavailable Unavailable Momo Forbes Primary Care Provider Reason for Visit Reason Comments Eval/Assessment LBA Encounter Details Date Type Department Care Team Description 02/11/2014 Office Visit Specialty Infusion Kaitlynn Leon, Complica tion of transplanted kidney (Primary Dx); and Procedure Center Anemia; [place] [facility] HTN (hy pertension); [facility] Immunosuppression (H); 2nd Floor [address] Hypophosphatemia 6 [facility] [address] [place], [place] [phone] (Work) [phone] Social History Tobacco Use Types Packs/Day Years [...] Notes Pharmacy-Medication Regimen Review - Yi Londono [facility] - 02/11/2014 3:27 PM CDT Visited Diego in [facility] for first follow up pharmacy visit post-kidney transplant discharge. Discharge: 02/08/2014 Using Medcard: Yes Med review: Went over all meds and dosing with patient and Tete. Went over Prograf and Cellcept side effects. Medication questions/concerns: Patient requested that we transfer 4 rx's (to profile) from local pharmacy to us here. Pt wants us to get Zofran filled for pick pack worker 02/12- new dose of 2 Q6-8H PRN. Using medbox: Yes Viewed DVD: Didn't bring up Pain: #2-3, feels good, rarely using Oxycodone Other Concerns: none No further questions for this pharmacist. Yi Londono [facility] [phone] documented in this encounter Plan of Treatment [...] Signature INR 2.28 (H) 0.86 - 1.14 [facility] LABS Specimen Anatomical Collection Method Collection Time Receive d Time (Source) Location / / Volume Laterality 02/11/2014 9:30 AM 4 9:41 CDT AM CDT Kaitlynn Leon MD LAB - BLOOD ORDERABLES Performing Organization Address City/State/ZIP Code Phon e Number [id number] [place] [address] LABS documented in this encounter Visit Diagnoses Diagnosis Complication of transplanted kidney - Pr imary Complications of transplanted kidney Anemia Anemia, unspecified HTN (hypertension) Unspecified essential hypertension Immunosuppression (H) Unspecified disorder of immune mechanism Hypophosphatemia Disorders of phosphorus metabolism documented in this encounter Care Teams Road Grader Operator Relationship Specialty Start Date End Date Momo Forbes PCP - General Family Practice 01/02/14 [facility] [address] [place] [address] Ingrid Santana, RN Registered Nurse Transplant 02/10/12 documented as of this encounter
--- OUTSIDE RECORDS SUMMARY | 2022-05-24 11:53 | XMS_ITS | Encounter Summary ---
:1950 Author Organization [place] Address [facility]0 [facility] [place] [address] Care Team Providers Name Role Phone Ingrid Santana RN Unavailable Unavailable Momo Frobes Primary Care Provider Reason for Visit Reason Onset Date Comments Previsit 02/15/[address] Merchant 02/18 Encounter Details Date Type Department Care Team Description 02/15/2014 Telephone Transplant Surgery Radha Acosta LPN Prev isit (Appt with Dr Anthony Merchant 02/18) 2nd Floor, Clinic [address] [phone] Social History Tobacco Use Types Packs/Day Years [...] filedocumented in this encounter Care Teams Medical Chief Technician Relationship Specialty Start Date End Date Momo Forbes PCP - General Family Practice 01/02/[address] [address] Ingrid Santana, RN Registered Nurse Transplant 02/10/12 documented as of this encounter
--- OUTSIDE RECORDS SUMMARY | 2022-05-24 11:53 | XMS_ITS | Encounter Summary ---
:1950 Author Organization [place] Address [facility]0 [facility] [place] [address] Care Team Providers Name Role Phone Ingrid Santana RN Unavailable Unavailable Momo Forbes Primary Care Provider Reason for Visit Reason Comments Eval/Assessment LBA Encounter Details Date Type Department Care Team Description 02/14/2014 Office Visit Specialty Infusion Edward, Naim S, Kidney r eplaced by transplant (Primary Dx); and Procedure Center Immunosuppression (H); [facility] Hyperka lemia; [facility] Hypophosphatemia; 2nd Floor [address] Atrial fibrillation (H); [address] [place], [place] Anemia; [place] [phone] HTN (hypertension) [place], [place] [phone] (Work) [phone] Social History Tobacco Use Types Packs/Day Years [...] Years of Education: 14 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 [address] [place] [address] Ingrid Santana, RN Registered Nurse Transplant 02/10/12 documented as of this encounter
--- OUTSIDE RECORDS SUMMARY | 2022-05-24 11:53 | XMS_ITS | Encounter Summary ---
:1950 Author Organization [place] Address [facility]0 [facility] [place] [address] Care Team Providers Name Role Phone Ingrid Santana RN Unavailable Unavailable Momo Forbes Primary Care Provider Reason for Visit Reason Comments Eval/Assessment s/p kidney transplant 8days ago Encounter Details Date Type Department Care Team Description 02/10/2014 Infusion Therapy Specialty Infusion Finger, Migel Mac y replaced by Visit and Procedure MD Nathan transplant (Primary Center [address] [place] [address] Dx) [facility] [address] [phone] [place], [place] (Work) [phone] Social History Tobacco Use [...] 10:40 AM CDT Diego Guthrie came to [facility] today for a lab and assess 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 Discharge date: 02/08/14 teller coordinator: Leandro Kahn RN Phone number patient can be reached at: [phone] (girlfriend's cell) Physical Assessment: See physical assessment located under Document Flowsheets. Incision site: stapled, leaking tiny amount clear pink/pale yellow fluid from mid incision (1.5inch area on dressing from 3hours ago) covered with ABD Lines: MARGARET rlq; 30cc out last tamara; 10cc out overnite;; lite pink clear fluid Gibbs: na states is not having voiding difficulty Urine clarity: not asked Hydration: states he [id number] water yesterday but does not like that [...] Discharge Plan Pt will follow up with [facility] lab/assess in am 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/Stoker Erector And Servicer verbalized understanding, all questions answered: YES Discharged [...] Results Tacrolimus level (02/10/2014 8:37 AM CDT) [facility] Method Time Signature Tacrolimus Not Provided [facility] Last Dose [facility] LABS Tacrolimus 6.8 5.0 - [facility] Level 15.0 ug/L [facility] LABS Comment: Tacrolimus Reference Range [...] Phon e Number [facility] [address] [place], [place] [phone] [place] [address] LABS (ABNORMAL) CBC with platelets differential (02/10/2014 8:37 AM CDT) Component Value Ref Test Analysis Performed At [facility] gist Range Method Time Signature WBC 5.5 4.0 - [facility] 11.0 [place] LABS 10e9/L RBC Count 2.53 (L) 4.4 - [facility] 5.9 [facility] LABS 10e12/L Hemoglobin 7.9 (L) 13.3 - [facility] 17.7 C[facility] LABS g/dL Hematocrit 23.2 (L) 40.0 - [facility] 53.0 % CAMPUS LABS MCV 92 78 - 100 [facility] fl CAMPUS LABS MCH 31.2 26.5 - [facility] 33.0 pg CAMPUS LABS [facility]CHC 34.1 31.5 - [facility] 36.5 CAMP[facility] LABS g/dL RDW 14.5 10.0 - [facility] 15.0 % CAMPUS LABS Platelet Count 89 (L) 150 - [facility] 450 CAMPUS LABS 10e9/L Diff Method Manual [...] Code Phon e Number [facility] [id number] DIFFERENTIAL [facility] LABS (ABNORMAL) Phosphorus (02/10/2014 8:37 AM CDT) P athologist Signature Phosphorus 1.9 (L) 2.5 - 4.5 [facility] mg/dL CAMP[facility] LABS Specimen Anatomical Collection Method Collection Time Receive d Time (Source) Location / / Volume Laterality Blood specimen 02/10/2014 8:37 AM 014 8:38 (specimen) CDT AM CDT Migel Merchant MD LAB - BLOOD ORDERABLES Performing Organization Address City/[facility]/ZIP Code Phon e Number [facility] [address] [place], [place] [phone] [place] [address] LABS Magnesium (02/10/2014 8:37 AM CDT) P athologist Signature Magnesium 2.0 1.6 - 2.3 [facility] mg/dL CAMPUS LABS Specimen Anatomical Collection Method Collection Time Receive d Time (Source) Location / / Volume Laterality Blood specimen 02/10/2014 8:37 AM 014 8:38 (specimen) CDT AM CDT Migel Merchant MD LAB - BLOOD ORDERABLES Performing Organization Address City/[facility] Code Phon e Number [facility] [address] [place], [place] [phone] [place] [address] LABS (ABNORMAL) Basic metabolic panel (02/10/2014 8:37 AM CDT) Patholo gist Method Time Signature Sodium 144 133 - 144 [facility] mmol/L [facility] LABS Potassium 4.8 3.4 - 5.3 [facility] mmol/L [facility] LABS Chloride 111 (H) 94 - 109 [facility] mmol/L [facility] LABS Carbon Dioxide 22 20 - 32 [facility] mmol/L [facility] LABS Anion Gap 10 6 - 17 [facility] mmol/L [facility] LABS Glucose 128 (H) 60 - 99 [facility] mg/dL [facility] LABS Urea Nitrogen 34 (H) 7 - 30 [facility] mg/dL [facility] LABS Creatinine 1.80 (H) 0.66 - [facility] 1.25 mg/dL [facility] LABS GFR Estimate 38 (L) >60 [facility] mL/min/1.7 [place] m2 CAMPUS LABS GFR Estimate If 46 (L) >60 [facility] Black mL/min/1.7 [place] m2 CAMPUS LABS Calcium 9.1 8.5 - 10.4 [facility] mg/dL [facility] LABS Specimen Anatomical Collection Method Collection Time Receive d Time (Source) Location / / Volume Laterality Blood specimen 02/10/2014 8:37 AM 014 8:38 (specimen) CDT AM CDT Migel Merchant MD LAB - BLOOD ORDERABLES Performing Organization Address City/State/ZIP Code Phon e Number [facility] [address] [place] [address] [facility] LABS documented in this encounter Visit Diagnoses Diagnosis Kidney replaced by transplant - Primary documented in this encounter Care Teams Billet Cutter Relationship Specialty Start Date End Date Momo Forbes PCP - General Family Practice 01/02/14 [facility] [address] [place] [address] Ingrid Santana, RN Registered Nurse Transplant 02/10/12 documented as of this encounter
--- OUTSIDE RECORDS SUMMARY | 2022-05-24 11:53 | XMS_ITS | Encounter Summary ---
:1950 Author Organization [place] Address [facility] [place] [address] Care Team Providers Name Role Phone Ingrid Santana RN Unavailable Unavailable Momo Forbes Primary Care Provider Reason for Visit Reason Onset Date Comments Refill Request 02/12/2014 clotrimazole Encounter Details Date Type Department Care Team Description 02/12/2014 Refill Nephrology Kaitlynn Leon MD Refill Request 2nd Floor, Clinic [address] [facility] (clotrimazole) [address] [phone] Social History Tobacco Use Types Packs/Day Years [...] Miscellaneous Notes Telephone Encounter - Lianne Braswell [facility] - 02/12/2014 8:50 AM CDT Last Fill Date: 02/08/14 Last Fill Quantity: 70 Last Office Visit: 02/11/14 Proactive request, and also requesting a new quantity for a one month supply. Thanks! Lianne Braswell, PharmD [facility] [phone] documented in this encounter Plan of Treatment Not on filedocumented as of this encounter Visit Diagnoses Diagnosis S/P kidney transplant Kidney replaced by transplant documented in this encounter Care Teams Pit Shoveler Relationship Specialty Start Date End Date Momo Forbes PCP - General Family Practice 01/02/14 [facility] [address] [place] [address] Ingrid Santana, RN Registered Nurse Transplant 02/10/12 documented as of this encounter
--- OUTSIDE RECORDS SUMMARY | 2022-05-24 11:53 | XMS_ITS | Encounter Summary ---
:1950 Author Organization [place] Address [address] [place] [address]. [place] [address] Care Team Providers Name Role Phone Ingrid Santana RN Unavailable Unavailable Momo Forbes Primary Care Provider Encounter Details Date Type Department Care Team Description 02/11/2014 Orders Only Nephrology Josseline Nice, Kidney replaced by 2nd Floor, Clinic 2A [facility] KAY MACHINE OPERATOR transplant (Primary [place] Akila Dx) [address] [phone] Social History Tobacco Use Types Packs/Day Years [...] Primary documented in this encounter Care Teams Nurse Reviewer Relationship Specialty Start Date End Date Momo Forbes PCP - General Family Practice 01/02/14 [facility] [address] [place] [address] Ingrid Santana RN Registered Nurse Transplant 02/10/12 documented as of this encounter
--- OUTSIDE RECORDS SUMMARY | 2022-05-24 11:54 | XMS_ITS | Encounter Summary ---
:1950 Author Organization [place] Address [facility] [address] Care Team Providers Name Role Phone Ingrid Santana RN Unavailable Unavailable Momo Forbes Primary Care Provider Reason for Visit Reason Comments Transplant Donor culture results Encounter Details Date Type Department Care Team Description 02/04/2014 Documentation Only The Transplant Gladis Yeboah, Transplant (Donor 2nd Floor, Clinic 2A RN culture results) [address] [place] [address] Social History Tobacco Use Types Packs/Day Years [...] and urine cultures have been uploaded into [employer]. Notification sent to Dr. Rust and Dr. Hernandes. documented in this encounter Plan of Treatment Not on filedocumented as of this encounter Visit Diagnoses Not on filedocumented in this encounter Care Teams Enterprise Account Executive Relationship Specialty Start Date End Date Momo Forbes PCP - General Family Practice 01/02/14 [place] [phone] Ingrid Santana, RN Registered Nurse Transplant 02/10/12 documented as of this encounter
--- OUTSIDE RECORDS SUMMARY | 2022-05-24 11:54 | XMS_ITS | Encounter Summary ---
:1950 Author Organization [place] Address [address] [place] [address]. [place] [address] Care Team Providers Name Role Phone Ingrid Santana RN Unavailable Unavailable Momo Forbes Primary Care Provider Reason for Referral Home Health Therapies & Aides Specialty Diagnoses / Procedures Referred By Contact Refer red To Contact Adeline Diaz MD [place] [phone] Referral ID Status Reason Start Date Expiration Date Visits Requ ested Visits Authorized ome Health Therapies & Aides Specialty Diagnoses / Procedures Referred By Contact Gary phelps To Contact Adeline Diaz MD [place] [phone] Referral ID Status Reason Start Date Expiration Date Visits Requ ested Visits Authorized ome Health Therapies & Aides Specialty Diagnoses / Procedures Referred By Contact Gary phelps To Contact [facility] [address] [place], [place] [phone] Referral ID Status Reason Start Date Expiration Date Visits Requ ested Visits Authorized Reason for Visit Auth/Cert - Closed Specialty Diagnoses / Procedures Referred By Contact Gary phelps To Contact Med Surg Diagnoses end stage renal disease dialysis End stage renal failure on dialysis Renal Failure Uu U7a Procedures TRANSPLANT KIDNEY RECIPIENT DONOR [address] [place] [address] Phone: Referral ID Status Reason Start Date Expiration Date Visits Requ ested Visits Authorized [id number] Closed 02/04/2014 08/03/2014 1 1 Encounter Details Date Type Department Care Team Description 02/02/2014 - Hospital Encounter [facility] Susie Doyle MD [address] [place] [id number] S/P kidney transplant (Primary Dx); 02/08/2014 [facility] Unit [address] Mathew Parker MD [address] [place] [id number] Atrial fibrillation (H) [address] [place] [address] Social History Tobacco Use Types [...] Physician Discharge Summary Patient ID: Diego Guthrie [id number] 63 year old 1950 Admit date: 02/02/2014 [...] Take 1 tablet by mouth daily. B cihnxym-G-pvbbs acid (NEPHROCAPS) 1 MG capsule Take 1 [...] in the [facility] ([facility]) which is located on the second floor of the [facility] next to the Transplant Clinic. Your labs [...] of these appointments you will meetwith a dietary aide and meet your magnetic resonance imaging coordinator. Your nurse will also be in communication with your surgeon and dietary aide as needed. The direct number to the [facility] is [phone]. In the [facility] [...] will be located in [facility] transplant surgery clinic on the second floor.Your transplant surgeon is: Dr. Merchant. You have a ureteral stent in place which needs to be removed in 4-6 weeks. If a cook mess does not contact you for this, please contact your magnetic resonance imaging coordinator. If you have modesta in place, they will be removed in 3 weeks after operation. Notify your coordinator if you have pain over your kidney, fever greater than 101.5F, or decreased urine output. Notify your coordinator immediately if you are ever unable to take your immunosuppressive medications for any reason. Treasury Analyst [phone] Diet recommendations post-transplant: Heart healthy dietary habits terminal carman (low saturated/trans fat, low sodium). High protein [...] >2. He can be seen by any crime prevention worker in the outpatient setting for coordination. Continue metoprolol 25 po bid until he is r e-evaluated. We did attempt inpatient REFUGIO guided cardioversion, but the patient developed significant bleeding while on heparin. José Miguel Alvarez M.D. Batting Machine Operator Insulation Joseph Quintana MD - 02/08/2014 12:35 PM [...] Dr. Quintana. Sina Robison MD Nephrology Fellow [phone] Attestation: This patient has been seen and [...] Ramires RN - 02/07/2014 2:25 PM CDT Industrial Radiographer D: Diego Guthrie 63 year old male POD #5 s/p DDKT for ESRD 2/[address] Diaz note today. Per Dr Diaz, pt will most likely be ready for d/c to home tomorrow and will return to [facility] for 5 days at 0700. Pt [...] him. Pt does not know where the [facility] or transplant clinic is, I told him and he replied I will find it. Pt does not care which [facility] agency will follow him--There are only 2 to choose from, so I chose the [facility] [phone]/ --I called and left a message with Estrella Fletcher and I fax'd his records tothem--pt will need start of care approx Thursday 02/15. Pt is new on warfarin and I called his PCP's office and they have INR nurses Tuesday-Tuesday their fax # is [phone] (when N visits are completed --pt will call main clinic # to schedule INR draws). 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 I verified his address and phone #(is his cell) on the facesheet. Pt has not met his OP child care assistant: Leandro Kahn, yet--I sent Leandro an in basket message today-with plan. A: possible d/c to home Tuesday P: see above-will follow and will call [facility] to confirm they can accept him. Joseph [...] Dr. Quintana. Sina Robison MD Nephrology Fellow [phone] Attestation: This patient has been seen and [...] assistance Medical Decision Making: Medium Subsequent visit 40056 (moderate level decision making) PATO/Fellow/Resident Provider: Adeline [...] Rodriguez MD - 02/06/2014 4:25 PM CDT [facility] Cardiology Progress Note I have seen [...] Dr. Quintana. Sina Robison MD Nephrology Fellow [phone] Attestation: This patient has been seen and [...] Dr. Quintana. Sina Robison MD Nephrology Fellow [phone] Attestation: This patient has been seen and [...] REPLACEMENT ONLY ??? insulin (regular) Stopped (02/05/14 0147) Shiva Kahn RN - 02/05/2014 4:47 PM CDT NET MANAGER NOTE I met with the patient and his yesterday at [facility] PCU-6B (telemetry unit) to discuss transition from inpatient to outpatient care following kidney translantation. 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 Joseph Rodriguez MD - 02/05/2014 11:16 AM CDT [facility] Cardiology Progress Note I have seen [...] plan for REFUGIO cardioversion tomorrow, NPO at NE (orders placed) -- continue heparin and initiate [...] 02/02/2014. Pt lives alone in [facility] though reports that his girlfriend in in the process of moving in with him. Pt girlfriend, Tete, will be present when pt returns home but she works machine rigger. Pt was on dialysis for 2 1/2 years prior to transplant. Pt works independently but reports that he currently has no income coming in. Pt has primary insurancethrough Medicare and Secondary insurance through [employer]. Pt has no co-pays for his immunosuppressants and a high out of pocket cost for Valcyte, SW to look into grants for pt for Valcyte. I: Met with pt to introduce this writer producer and explain sw role and services available while inpatient in the hospital. Asked if pt had any questions or concerns and completed an assessment of psychosocialneeds post transplant. Provided education about expectations and requirements post discharge like fol low up in the [facility]. Pt is unsure yet if he [...] needs arise prior to discharge. CECY Kearns, CORPORATE ATTORNEY Indu Calixto MD - 02/05/2014 1:50 AM [...] Adds Type of Visit Initial PT Evaluation Independent Film Maker Independent Film Maker Present no Language Libyan Living Environment (R) Lives With alone Living Arrangements ([facility]) Home Accessibility no concerns Number of [...] up when pt is available. CECY Kearns, CORPORATE ATTORNEY [phone] phone [phone] pager Joseph Quintana MD - 02/04/2014 11:51 [...] Dr. Quintana. Sina Robison MD Nephrology Fellow [phone] Attestation: This patient has been seen and [...] for this basename: PTHI, in the last 80215 hours IRON STUDIES No results found for this basename: IRON, FEB, IRONSAT, THEE, in the last 68275 hours Imaging: All imaging studies reviewed by [...] or equal to 12.0 mlU/mL. Adeline Diaz [phone] Attestation: The patient has been seen and [...] donor kidney transplant, with stent on 02/02/14. FINANCIAL ANALYSIS CONSULTANT donor. Graft function:uncertain, Cr slightly up. Slow [...] . Medical Decision Making: Medium Subsequent visit 68490 (moderate level decision making) PATO/Fellow/Resident Provider: Caitlin [...] note and orders. Migel Merchant MD, PhD marketing project manager Abdominal Organ Transplantation Carmelita Rosario, RN - 02/03/2014 9:38 AM CDT Patient removed from the UNOS waitlist after donor kidney transplant. UNOS ID is [id number]. Rafaela Cardona - 02/03/2014 9:17 AM CDT [...] followed general diet. Patient reports good appetite/intake PHYSICAL DAMAGE APPRAISER, no nutrition issues/concnerns. CURRENT NUTRITION ORDERS - [...] DDKT ASSESSED NUTRITION NEEDS: Estimated Energy Needs: 4964-9724+ kcals (25-30+ Kcal/Kg) Justification: maintenance post-transplant Estimated [...] (6- 8 weeks). Rec follow heart-healthy diet nursing home. Implementation Nutrition education: Provided instruction on post-transplant diet with discussion regarding protein sources and high protein needs in acute post-tx phase. Reviewed recommendations to follow low fat/lowsodium diet terminal carman and discussed heart healthy diet tips. Discussed [...] adjustment. Rafaela Cardona RD, LD Weekend Coverage [phone] Jose Aguirre MD - 02/03/2014 4:57 AM [...] Doing well postoperatively. Pain: Controlled by Dilaudid MEDICAL CONSULTANT Diet: NPO tonight Volume Status: Borderline low UOP, continue MIVF, 0.9 % NS 500 cc bolus given for low UOP, CVP not accurate, systolic in 100-110 Recheck hemoglobin and potassium normal. Rest of the plan per primary team. Will continue to follow. Jose Aguirre MD PGY-1.................02/03/2014 Surgery Cross Cover Pager:[phone] documented in this encounter H&P Notes Caitlin [...] 1 tablet by mouth daily. ??? 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 Kidney bx [...] note and orders. Migel Merchant MD, PhD marketing project manager Abdominal Organ Transplantation documented in this [...] 1 tablet by mouth daily. ??? 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 2. There is no [...] assessment and plan. José Miguel Alvarez MD Batting Machine Operator Insulation Pager: [phone] February 04, 2014 Kaitlynn Leon MD - 02/03/2014 9:30 AM CDT Nephrology Initial Consult February 03, 2014 Diego Guthrie Date of : 1950 Date of Admission:02/02/2014 Primary care provider: Momo Forbes Requesting physician: Migel Merchant MD ASSESSMENT AND RECOMMENDATIONS: 1. DDKT - FINANCIAL ANALYSIS CONSULTANT -59 yo women; slow graft function-no immediate need for dialysis , but may require tomorrow if UO does not machine operator picker. We will monitor Induction with Thymo/Cellcept [...] h/o type 2 Dm, who received DDKT (FINANCIAL ANALYSIS CONSULTANT) on 02/02/2014 donor kidney had severe atherosclerotic [...] ??? Cataract iol, rt/lt both eyes MEDICATIONS: PHYSICAL DAMAGE APPRAISER Meds Prior to Admission medications Medication Sig Last Dose Taking? Auth Provider Calcium Carbonate-Vitamin D (CALCIUM + D PO) Take by mouth daily. Reported, Patient lisinopril (PRINIVIL,ZESTRIL) 40 MG tablet Take 40 mg by mouth 2 times daily. Reported, Patient METOPROLOL SUCCINATE PO Take by mouth daily. Reported, Patient aspirin 81 MG tablet Take 1 tablet by mouth daily. Reported, Patient B hfboeyj-D-apjxw acid (NEPHROCAPS) 1 MG capsule Take 1 [...] Intravenous Central line Once ??? HYDROmorphone Intravenous MEDICAL CONSULTANT Infusion Meds ??? 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 Alvin Diego Cardiovascular Disease Fellow [phone] Patient seen and examined by me with [...] Cullen MD, PhD Jarad Cullen MD, PhD [phone] documented in this encounter Nursing Notes Gretta Mary RN - 02/02/2014 11:[address] Owens with Transplant Surgery notified of stat lab results. Magnesium replaced. Dr. Blank with Anesthesia reviewed chest x-ray. CVC not deep enough to give accurate CVP readings, however all lumens aspirate blood well. Patient is ok to transfer to unit 6B per [facility]. documented in this encounter Miscellaneous Notes Plan of Care - Amanda Hernandez RN - 02/08/2014 3:44 PM CDT Problem: IP GENERAL POC-ADULT,OB,BEHAVIORAL FVCPM Goal: Individualization/Patient-Specific Goal (Adult,OB,Behavioral The patient and/or their livestock sales representative will achieve their patient-specific goals [...] Individualization/Patient-Specific Goal (Adult,OB,Behavioral The patient and/or their livestock sales representative will achieve their patient-specific goals [...] Individualization/Patient-Specific Goal (Adult,OB,Behavioral The patient and/or their livestock sales representative will achieve their patient-specific goals [...] Individualization/Patient-Specific Goal (Adult,OB,Behavioral The patient and/or their livestock sales representative will achieve their patient-specific goals [...] recommendations post-transplant: Heart healthy dietary habits terminal carman (low saturated/trans fat, low sodium). High protein diet x 8 weeks. Practice food safety precautions - no fish/seafood x 3 weeks. Inez Luevano MS, RD, LD Pager [phone] Pharmacy-Immunosuppression Monitoring - Em Vasquez [facility] - 02/07/2014 9:06 AM CDT Tacrolimus [...] will continue to follow. Em Vasquez, Pharm.D., [facility] Pager [phone] Plan of Care - Annmarie Colby RN - 02/07/2014 5:11 AM CDT Problem: IP GENERAL POC-ADULT,OB,BEHAVIORAL FVCPM Goal: Individualization/Patient-Specific Goal (Adult,OB,Behavioral The patient and/or their livestock sales representative will achieve their patient-specific goals [...] well between cares. Provider Notification - Annmarie Cloby RN - 02/07/2014 4:02 AM CDT On-call, [...] Individualization/Patient-Specific Goal (Adult,OB,Behavioral The patient and/or their livestock sales representative will achieve their patient-specific goals [...] increased fluid intake, urine color is becoming mural painter( tea color/bloody- >dark sy/tea color). Incisional pain [...] Physical Therapy Goals The patient and/or their livestock sales representative will achieve their patient-specific goals [...] Physical Therapy Goals The patient and/or their livestock sales representative will achieve their patient-specific goals [...] Individualization/Patient-Specific Goal (Adult,OB,Behavioral The patient and/or their livestock sales representative will achieve their patient-specific goals [...] Individualization/Patient-Specific Goal (Adult,OB,Behavioral The patient and/or their livestock sales representative will achieve their patient-specific goals [...] Physical Therapy Goals The patient and/or their livestock sales representative will achieve their patient-specific goals [...] at this time. Pharmacy - Cayetano Olivera [facility] - 02/05/2014 12:26 PM CDT Visited [...] for this pharmacist. Inez Cox, Student Pharmacist Roving Marker [facility] [address] [place] [id number] Cayetano Olivera, Pharmacist [facility] [phone] Pharmacy-Anticoagulation Service - Teresa Wright [facility] - 02/05/2014 11:29 AM CDT Clinical [...] Individualization/Patient-Specific Goal (Adult,OB,Behavioral The patient and/or their livestock sales representative will achieve their patient-specific goals [...] melonie hard time making full sentences. When writer producer came on shift at 8pm patient was [...] Individualization/Patient-Specific Goal (Adult,OB,Behavioral The patient and/or their livestock sales representative will achieve their patient-specific goals [...] Physical Therapy Goals The patient and/or their livestock sales representative will achieve their patient-specific goals [...] by friend. Pt transferred to chair, VSS, road cleaner on, oriented to room. Pharmacy-Admission Medication History - Teresa Wright, [facility] - 02/04/2014 11:54 AM CDT Admission medication history interview status for the 02/02/2014 admission is complete. See [facility] admission navigator for allergy information, prior to admission medications and immunization status. Medication history interview sources (including written lists, pill bottles, clinic record):Patient Medication history source reliability:Good Primary pharmacy:[facility] phone number: [phone] Changes made to PHYSICAL DAMAGE APPRAISER medication list (reason) Added: Vitamin D 1,000 [...] at Unknown time Yes Reported, Patient B dmlwkce-P-tvbut acid (NEPHROCAPS) 1 MG capsule Take 1 [...] Individualization/Patient-Specific Goal (Adult,OB,Behavioral The patient and/or their livestock sales representative will achieve their patient-specific goals [...] 45 minutes and remains in A-fib via registered nurse cardiac telemetry. Repeat EKG around 1000 showed continued Afibl. [...] Physical Therapy Goals The patient and/or their livestock sales representative will achieve their patient-specific goals related to the plan of care. The patient-specific goals include: PT 7A: HOLD for AM per RN - pt with a-fib this morning. Plan of Care - Alisson Diane RN - 02/04/2014 6:45 AM CDT Problem: IP GENERAL POC-ADULT,OB,BEHAVIORAL FVCPM Goal: Individualization/Patient-Specific Goal (Adult,OB,Behavioral The patient and/or their livestock sales representative will achieve their patient-specific goals [...] Individualization/Patient-Specific Goal (Adult,OB,Behavioral The patient and/or their livestock sales representative will achieve their patient-specific goals [...] to yellow. Pharmacy-Transplant Note - Davina Schuster, [facility] - 02/03/2014 4:28 PM CDT Adult [...] Individualization/Patient-Specific Goal (Adult,OB,Behavioral The patient and/or their livestock sales representative will achieve their patient-specific goals related to the plan of care. The patient-specific goals include: 1. Pt will remain hemodynamically stable 2. Pt will have adequate urine output 3. Pt will be free of falls. RD Patient will verbalize understanding of 3 important aspects of post-transplant diet guidelines. PO intake >50% meals TID once diet adv. Report taken from [facility] on 6B; patient transferred to from 6B via wheelchair around 1500. Patientsettled into room, oriented to floor/room and call light. VS taken. Orders released. Continue ordersas written and notify MD with any concerns. Plan of Care - Sofie Christianson RN - 02/03/2014 2:59 PM CDT Problem: IP GENERAL POC-ADULT,OB,BEHAVIORAL FVCPM Goal: Plan of Care Review (Adult,OB,Behavioral) The patient and/or their livestock sales representative will communicate an understanding of [...] algorithm 2, 1 unit now. Pt still [id number] NC to maintain sats above 90 % [...] Individualization/Patient-Specific Goal (Adult,OB,Behavioral The patient and/or their livestock sales representative will achieve their patient-specific goals [...] Intermittent sharp R lower abd pain. Dilaudid MEDICAL CONSULTANT encouraged, increased to 0.2/10/1.2. R lower abd [...] 0200 made 20cc/hr, at 0300 made 30cc/hr. Agnew/red tinged urine. MIVF @ 125/hr. VSS. HR 70s, BPs 100s-120s/60s. No new orders at this time. Will continue to monitor. Plan of Care - Tasia Andrade RN - 02/03/2014 12:00 AM CDT Pt arrived to 6B from PACU, s/p DDKT. A&O x3-4. VSS. Agnew/red urine output. Small amt drainage on abd [...] received [facility] offer for a Donor FINANCIAL ANALYSIS CONSULTANT (expanded criteria donor) kidney transplant. After discussing [...] The UNOS number of the donor is [id number]. The crossmatch was done prospectively; and the [...] reconstruction. FACULTY SURGEON: Migel Merchant M.D., Ph.D. FELLOW/CFO CONTROLLER SURGEON: Caitlin Owens MD fellow ANESTHESIA: None VERIFICATION: Prior to incision, I verified the donor ABO and recipient ABO. After the donor organ arrived to the operating room and prior to anastamosis, I visually verified that the donor identification, blood type, and other vital data were compatible with the recipient. FINDINGS: Donor type: FINANCIAL ANALYSIS CONSULTANT (expanded criteria donor) Organ: kidney Graft Injury: [...] Individualization/Patient-Specific Goal (Adult,OB,Behavioral The patient and/or their livestock sales representative will achieve their patient-specific goals [...] Individualization/Patient-Specific Goal (Adult,OB,Behavioral The patient and/or their livestock sales representative will achieve their patient-specific goals [...] LARES - ROBERT POCT Performing Organization Address City/State/[facility] Code Phon e Number FV POINT OF [...] GLUCOSE Tacrolimus level (02/08/2014 6:42 AM CDT) [facility] gist Method Time Signature Tacrolimus Not Provided [facility] Last Dose [facility] Tacrolimus 10.0 5.0 - [facility] Level 15.0 ug/L [facility] Comment: Tacrolimus Reference Range Kidney Transplant [...] Phon e Number [facility] [address] [place] [address] [facility] LABS (ABNORMAL) INR (02/08/2014 6:42 AM CDT) P athologist Signature INR 1.28 (H) 0.86 - 1.14 [facility] Specimen Anatomical Collection Method Collection Time Receive d Time (Source) Location / / Volume Laterality Blood specimen 02/08/2014 6:42 AM 014 6:43 (specimen) CDT AM CDT Omaira Chavez PA-C LAB - BLOOD ORDERABLES Performing Organization Address City/[facility]/ZIP Code Phon e Number [facility] [address] [place], [place] [id number] [place] [address] LABS (ABNORMAL) Basic metabolic panel (02/08/2014 6:42 AM CDT) Patholo gist Method Time Signature Sodium 144 133 - 144 [facility] mmol/L [facility] Potassium 3.9 3.4 - 5.3 [facility] mmol/L [facility] Chloride 110 (H) 94 - 109 [facility] mmol/L [facility] Carbon Dioxide 25 20 - 32 [facility] mmol/L [facility] Anion Gap 8 6 - 17 [facility] mmol/L [facility] Glucose 144 (H) 60 - 99 [facility] mg/dL [facility] [facility] Urea Nitrogen 66 (H) 7 - 30 [facility] mg/dL [facility] Creatinine 2.38 (H) 0.66 - [facility] 1.25 mg/dL [facility] GFR Estimate 28 (L) >60 [facility] mL/min/1.7 [facility] GFR Estimate If 34 (L) >60 [facility] Black mL/min/1.7 [facility] Calcium 9.4 8.5 - 10.4 [facility] mg/dL [facility] Specimen Anatomical Collection Method Collection Time Receive d Time (Source) Location / / Volume Laterality Blood specimen 02/08/2014 6:42 AM 014 6:43 (specimen) CDT AM CDT Omaira Chavez PA-C LAB - BLOOD ORDERABLES Performing Organization Address City/State/ZIP Code Phon e Number [facility] [address] [place] [address] [facility] LABS Phosphorus (02/08/2014 6:42 AM CDT) [...] Phon e Number [facility] [address] LABS Magnesium (02/08/2014 6:42 AM CDT) P athologist Signature Magnesium 2.2 1.6 - 2.3 [facility] mg/dL [place] [facility] Specimen Anatomical Collection Method Collection Time Receive d Time (Source) Location / / Volume Laterality Blood specimen 02/08/2014 6:42 AM 014 6:43 (specimen) CDT AM CDT Omaira Chavez PA-C LAB - BLOOD ORDERABLES Performing Organization Address City/[facility]/ZIP Code Phon e Number [facility] [address] LABS (ABNORMAL) CBC with platelets differential (02/08/2014 6:42 AM CDT) Patholo gist Method Time Signature WBC 4.8 4.0 - [facility] 11.0 [facility] 10[facility]9/L [place] [facility] RBC Count 2.56 (L) 4.4 - 5.9 [facility] 10e12/L [facility] Hemoglobin 7.8 (L) 13.3 - [facility] 17.7 g/dL [facility] Hematocrit 23.5 (L) 40.0 - [facility] 53.0 % [facility] MCV 92 78 - 100 [facility] fl [facility] MCH 30.5 26.5 - [facility] 33.0 pg [facility] MCHC 33.2 31.5 - [facility] 36.5 g/dL [facility] RDW 14.5 10.0 - [facility] 15.0 % [facility] Platelet Count 70 (L) 150 - 450 [facility] 10e9/L [facility] Diff Method Automated [facility] Method [facility] % Neutrophils 86.3 % [facility] LAB[facility] % Lymphocytes 3.1 % [facility] % Monocytes 9.4 % [facility] % Eosinophils 1.0 % [facility] % Basophils 0.0 % [facility] % Immature 0.2 % [facility] Granulocytes [facility] Absolute 4.1 1.6 - 8.3 [facility] [...] Address City/State/ZIP Code Phon e Number [id number] [place] [address] LABS (ABNORMAL) Glucose by meter (02/07/2014 10:18 PM CDT) P athologist Signature Glucose 233 (H) 60 - 99 POINT OF CARE mg/dL TEST, GLUCOSE Specimen Anatomical Collection Method Collection Time Receive d Time (Source) Location / / Volume Laterality 02/07/2014 10:18 02/07/2014 PM CDT 10:20 PM CDT Migel LARES - BEAKER POCT Performing Organization Address City/[facility]/ZIP Code Phon e Number FV POINT [...] LAB - BEAKER POCT Performing Organization Address City/[facility]/ZIP [facility] Phon [...] LAB - BEAKER POCT Performing Organization Address [facility] Phon e Number FV POINT [...] CDT Migel JONES POCT Performing Organization Address City/[facility] Code Phon e Number FV POINT OF [...] CDT Migel JONES POCT Performing Organization Address City/State/[facility] Code Phon e Number FV POINT OF CARE TEST, GLUCOSE POINT OF CARE TEST, GLUCOSE (ABNORMAL) INR (02/07/2014 4:23 AM CDT) athologist Signature INR 1.25 (H) 0.86 - 1.14 [facility] Specimen Anatomical Collection Method Collection Time Receive d Time (Source) Location / / Volume Laterality Blood specimen 02/07/2014 4:23 AM 014 4:24 (specimen) CDT AM CDT Omaira Chavez PA-C LAB - BLOOD ORDERABLES Performing Organization Address City/[facility]/ZIP Code Phon e Number [facility] [address] [place] [address] [facility] LABS (ABNORMAL) Basic metabolic panel (02/07/2014 4:23 AM CDT) Patholo gist Method Time Signature Sodium 143 133 - 144 [facility] mmol/L [facility] Potassium 4.1 3.4 - 5.3 [facility] mmol/L [facility] Chloride 109 94 - 109 [facility] mmol/L [facility] Carbon Dioxide 24 20 - 32 [facility] mmol/L [facility] Anion Gap 10 6 - 17 [facility] mmol/L [facility] Glucose 185 (H) 60 - 99 [facility] mg/dL [facility] Urea Nitrogen 77 (H) 7 - 30 [facility] mg/dL [facility] Creatinine 3.02 (H) 0.66 - [facility] 1.25 mg/dL [facility] GFR Estimate 21 (L) >60 [facility] mL/min/1.7 [facility] GFR Estimate If 26 (L) >60 [facility] Black mL/min/1.7 [facility] Calcium 9.3 8.5 - 10.4 [facility] mg/dL [facility] Specimen Anatomical Collection Method Collection Time Receive d Time (Source) Location / / Volume Laterality Blood specimen 02/07/2014 4:23 AM 014 4:24 (specimen) CDT AM CDT Omaira Chavez PA-C LAB - BLOOD ORDERABLES Performing Organization Address City/State/ZIP Code Phon e Number [facility] [address] [place] [address] [facility] LABS Phosphorus (02/07/2014 4:23 AM CDT) [...] Phon e Number [facility] [address] LABS Magnesium (02/07/2014 4:23 AM CDT) P athologist Signature Magnesium 2.1 1.6 - 2.3 [facility] mg/dL [place] [facility] Specimen Anatomical Collection Method Collection Time Receive d Time (Source) Location / / Volume Laterality Blood specimen 02/07/2014 4:23 AM 014 4:24 (specimen) CDT AM CDT Omaira Chavez PA-C LAB - BLOOD ORDERABLES Performing Organization Address City/[facility]/ZIP Code Phon e Number [facility] [address] [place], [place] [phone] [place] [address] LABS (ABNORMAL) CBC with platelets differential (02/07/2014 4:23 AM CDT) Patholo gist Method Time Signature WBC 2.7 (L) 4.0 - [facility] 11.0 [facility] 10[facility]9/L [place] [facility] RBC Count 2.80 (L) 4.4 - 5.9 [facility] 10e12/L [facility] Hemoglobin 8.5 (L) 13.3 - [facility] 17.7 g/dL [facility] Hematocrit 25.8 (L) 40.0 - [facility] 53.0 % [facility] MCV 92 78 - 100 [facility] fl [facility] MCH 30.4 26.5 - [facility] 33.0 pg [facility] MCHC 32.9 31.5 - [facility] 36.5 g/dL [facility] RDW 14.5 10.0 - [facility] 15.0 % [facility] Platelet Count 77 (L) 150 - 450 [facility] 10e9/L [facility] Diff Method Automated [facility] Method [facility] % Neutrophils 87.5 % [facility] % Lymphocytes 3.8 % [facility] % Monocytes 8.7 % [facility] % Eosinophils 0.0 % [facility] % Basophils 0.0 % [facility] % Immature 0.0 % [facility] Granulocytes [facility] Absolute 2.3 1.6 - 8.3 [facility] Neutrophil 10e9/L [facility] [place] [facility] Absolute 0.1 (L) 0.8 - 5.3 [facility] Lymphocytes 10e9/L [facility] Absolute 0.2 0.0 - 1.3 [facility] Monocytes 10e9/L [facility] Absolute 0.0 0.0 - 0.7 [facility] Eosinophils 10e9/L [facility] Absolute 0.0 0.0 - 0.2 [facility] Basophils 10e9/L [facility] Abs Immature 0.0 0 - 0.4 [facility] Granulocytes 10e9/L [facility] Specimen Anatomical Collection Method Collection Time Receive d Time (Source) Location / / Volume Laterality Blood specimen 02/07/2014 4:23 AM 014 4:24 (specimen) CDT AM CDT Omaira Chavez PA-C LAB - BLOOD ORDERABLES Performing Organization Address City/[facility]/ZIP Code Phon e Number [address] LABS (ABNORMAL) Hemoglobin A1c (02/07/2014 4:23 AM CDT) Analysis Performed At Patho logist Time Signature Hemoglobin A1C 6.1 (H) 4.3 - 6.0 [facility] % [facility] Specimen Anatomical Collection Method Collection Time Receive d Time (Source) Location / / Volume Laterality Blood specimen 02/07/2014 4:23 AM 014 4:24 (specimen) CDT AM CDT Omaira Chavez PA-C LAB - BLOOD ORDERABLES Performing Organization Address City/[facility]/ZIP Code Phon e Number [address] LABS (ABNORMAL) Glucose by meter (02/06/2014 [...] Signature Hemoglobin 8.8 (L) 13.3 - 17.7 [facility] g/dL [place] LABS Specimen Anatomical Collection Method Collection Time Receive d Time (Source) Location / / Volume Laterality Blood specimen 02/06/2014 4:59 PM 014 5:12 (specimen) CDT PM CDT Omaira Chavez PA-C LAB - BLOOD ORDERABLES Performing Organization Address City/State/ZIP Code Phon e Number [address] [address] [facility] LABS (ABNORMAL) Glucose by meter (02/06/2014 12:01 PM CDT) athologist Signature Glucose 181 (H) 60 - 99 POINT OF CARE mg/dL TEST, GLUCOSE Specimen Anatomical Collection Method Collection Time Receive d Time (Source) Location / / Volume Laterality 02/06/2014 12:01 02/06/2014 PM CDT 12:05 PM CDT Migel Merchant MD LAB - BEAKER POCT Performing Organization Address City/[facility]/ZIP Code Phon e Number FV POINT OF CARE TEST, GLUCOSE POINT OF CARE TEST, GLUCOSE (ABNORMAL) Partial thromboplastin time (02/06/2014 5:57 AM CDT) P athologist Signature PTT 154 (HH) 22 - 37 sec [facility] LABS Comment: Critical Value called to and read back Whitney Poon RN AT 0642. PW Specimen Anatomical Collection Method Collection Time Receive d Time (Source) Location / / Volume Laterality 02/06/2014 5:57 AM 4 6:03 CDT AM CDT Adeline Diaz MD LAB - BLOOD ORDERABLES Performing Organization Address City/[facility]/ZIP Code Phon e Number [phone] [place] [address] LABS Heparin Xa (10a) Level (02/06/2014 5:57 AM CDT) P athologist Signature Heparin 10A 0.92 IU/mL [facility] LABS Comment: Therapeutic Range: ?? UFH: [...] Phon e Number [facility] [address] [place] [address] [facility] LABS (ABNORMAL) INR (02/06/2014 5:57 AM CDT) P athologist Signature INR 1.32 (H) 0.86 - 1.14 [facility] LABS Specimen Anatomical Collection Method Collection Time Receive d Time (Source) Location / / Volume Laterality Blood specimen 02/06/2014 5:57 AM 014 6:03 (specimen) CDT AM CDT Omaira Chavez PA-C LAB - BLOOD ORDERABLES Performing Organization Address City/State/ZIP Code Phon e Number [facility] [address] LABS (ABNORMAL) Basic metabolic panel (02/06/2014 5:57 AM CDT) Patholo gist Method Time Signature Sodium 142 133 - 144 [facility] mmol/L [facility] Potassium 4.7 3.4 - 5.3 [facility] mmol/L [facility] Chloride 106 94 - 109 [facility] mmol/L [facility] Carbon Dioxide 28 20 - 32 [facility] mmol/L [facility] Anion Gap 8 6 - 17 [facility] mmol/L [facility] Glucose 196 (H) 60 - 99 [facility] mg/dL [facility] Urea Nitrogen 71 (H) 7 - 30 [facility] mg/dL [facility] Creatinine 3.96 (H) 0.66 - [facility] 1.25 mg/dL [facility] GFR Estimate 15 (L) >60 [facility] mL/min/1.7 [facility] LABS GFR Estimate If 19 (L) >60 [facility] Black mL/min/1.[address] LABS Calcium 9.4 8.5 - 10.4 [facility] mg/dL [facility] Specimen Anatomical Collection Method Collection Time Receive d Time (Source) Location / / Volume Laterality Blood specimen 02/06/2014 5:57 AM 014 6:03 (specimen) CDT AM CDT Omaira Chavez PA-C LAB - BLOOD ORDERABLES Performing Organization Address City/State/ZIP Code Phon e Number [facility] [address] [place] [address] [facility] LABS Phosphorus (02/06/2014 5:57 AM CDT) athologist Signature Phosphorus 4.5 2.5 - 4.5 [facility] mg/dL [place] LABS Specimen Anatomical Collection Method Collection Time Receive d Time (Source) Location / / Volume Laterality Blood specimen 02/06/2014 5:57 AM 014 6:03 (specimen) CDT AM CDT Omaira Chavez PA-C LAB - BLOOD ORDERABLES Performing Organization Address City/[facility]/ZIP Code Phon e Number [facility] [address] LABS Magnesium (02/06/2014 5:57 AM CDT) athologist Signature Magnesium 1.9 1.6 - 2.3 [facility] mg/dL [place] [facility]S Specimen Anatomical Collection Method Collection Time Receive d Time (Source) Location / / Volume Laterality Blood specimen 02/06/2014 5:57 AM 014 6:03 (specimen) CDT AM CDT Omaira Chavez PA-C LAB - BLOOD ORDERABLES Performing Organization Address City/State/[facility] Code Phon e Number [facility] [address] LABS (ABNORMAL) CBC with platelets differential (02/06/2014 5:57 AM CDT) [facility] Method Time Signature WBC 5.1 4.0 - [facility] 11.0 [facility] 10e9/L [place] [facility] RBC Count 3.13 (L) 4.4 - 5.9 [facility] 10e12/L [facility] Hemoglobin 9.6 (L) 13.3 - [facility] 17.7 g/dL [facility] Hematocrit 29.0 (L) 40.0 - [facility] 53.0 % [facility] MCV 93 78 - 100 [facility] fl [facility] MCH 30.7 26.5 - [facility] 33.0 pg [facility] MCHC 33.1 31.5 - [facility] 36.5 g/dL [facility] RDW 14.5 10.0 - [facility] 15.0 % [facility] Platelet Count 85 (L) 150 - 450 [facility] 10e9/L [facility] Diff Method Automated [facility] Method [facility] % Neutrophils 86.0 % [facility] % Lymphocytes 5.1 % [facility] % Monocytes 8.7 % [facility] % Eosinophils 0.0 % [facility] % Basophils 0.0 % [facility] % Immature 0.2 % [facility] Granulocytes [facility] Absolute 4.4 1.6 - 8.3 [facility] Neutrophil 10e9/L [facility] Absolute 0.3 (L) 0.8 - 5.3 [facility] Lymphocytes 10e9/L [facility] Absolute 0.4 0.0 - 1.3 [facility] Monocytes 10e9/L [facility] Absolute 0.0 0.0 - 0.7 [facility] Eosinophils 10e9/L [facility] Absolute 0.0 0.0 - 0.2 [facility] Basophils 10e9/L [facility] Abs Immature 0.0 0 - 0.4 [facility] Granulocytes 10e9/L [facility] Specimen Anatomical Collection Method Collection Time Receive d Time (Source) Location / / Volume Laterality Blood specimen 02/06/2014 5:57 AM 014 6:03 (specimen) CDT AM CDT Omaira Chavez PA-C LAB - BLOOD ORDERABLES Performing Organization Address City/State/ZIP Code Phon e Number [address] LABS (ABNORMAL) Lipid panel reflex to direct LDL (02/06/2014 5:57 AM CDT) P athologist Signature Cholesterol 126 <200 mg/dL [facility] Comment: LDL Cholesterol is the primary guide to therapy. The NCEP recommends further evaluation of: patients with cholesterol greater than 200 mg/dL if additional risk facto rs are present, cholesterol greater than 240 mg/dL, triglycerides greater than 1 50 mg/dL, or HDL less than 40 mg/dL. Triglycerides 100 0 - 150 mg/dL [facility] LAB[facility] HDL Cholesterol 35 (L) >40 mg/dL [facility] LABS LDL Cholesterol Calculated 71 0 - 129 mg/dL [facility] LAB[facility] Comment: LDL Cholesterol is the primary guide to therapy: LDL-cholesterol goal in high risk patients is <100 mg/dL and in very high risk patients is <70 mg/dL. VLDL-Cholesterol 20 0 - 30 mg/dL [facility] Cholesterol/HDL Ratio 3.6 0.0 - 5.0 [facility] Specimen Anatomical Collection Method Collection Time Receive d Time (Source) Location / / Volume Laterality Blood specimen 02/06/2014 5:57 AM 014 6:03 (specimen) CDT AM CDT Omaira Chavez PA-C LAB - BLOOD ORDERABLES Performing Organization Address City/State/ZIP Code Phon e Number [facility] [address] [place], [place] [phone] [place] [address] LABS Tacrolimus level (02/06/2014 5:57 AM CDT) [facility] gist Method Time Signature Tacrolimus S Negative [facility] Last Dose [facility] Tacrolimus 12.7 5.0 - [facility] Level 15.0 ug/L [facility] Comment: Tacrolimus Reference Range Kidney Transplant [...] LAB - BLOOD ORDERABLES Performing Organization Address City/[facility]/ZIP Code Phon e Number [facility] [address] LABS (ABNORMAL) Glucose by meter (02/06/2014 3:21 AM CDT) P athologist Signature Glucose 216 (H) 60 - 99 POINT OF CARE mg/dL TEST, GLUCOSE Specimen Anatomical Collection Method Collection Time Receive d Time (Source) Location / / Volume Laterality 02/06/2014 3:21 AM 4 3:25 CDT AM CDT Migel Merchant MD LAB - BEAKER POCT Performing Organization Address City/[facility]/ZIP Code Phon e Number FV POINT OF CARE TEST, GLUCOSE POINT OF CARE TEST, GLUCOSE (ABNORMAL) Hemoglobin (02/06/2014 1:02 AM CDT) P athologist Signature Hemoglobin 10.2 (L) 13.3 - [facility] 17.7 g/dL [place] [facility]S Specimen Anatomical Collection Method Collection Time Receive d Time (Source) Location / / Volume Laterality Blood specimen 02/06/2014 1:02 AM 014 1:11 (specimen) CDT AM CDT Deysi Alicea MD LAB - BLOOD ORDERABLES Performing Organization Address City/[facility]/ZIP Code Phon e Number [facility] [address] LABS (ABNORMAL) Glucose by meter (02/05/2014 [...] P athologist Signature Heparin 10A 0.64 IU/mL [facility] LABS Comment: Therapeutic Range: ?? UFH: [...] LAB - BLOOD ORDERABLES Performing Organization Address City/[facility]/ZIP Code Phon e Number [phone] [place] [address] LABS (ABNORMAL) Glucose by meter (02/05/2014 6:04 PM CDT) P athologist Signature Glucose 232 (H) 60 - 99 POINT OF CARE mg/dL TEST, GLUCOSE Specimen Anatomical Collection Method Collection Time Receive d Time (Source) Location / / Volume Laterality 02/05/2014 6:04 PM 4 6:10 CDT PM CDT Migel LARES - BEAKER POCT Performing Organization Address City/[facility]/ZIP Code Phon e Number FV POINT [...] LAB - BEAKER POCT Performing Organization Address [facility] Phon e Number FV POINT [...] LAB - BEAKER POCT Performing Organization Address [facility] Phon e Number FV POINT [...] LAB - BEAKER POCT Performing Organization Address [facility] Phon e Number FV POINT OF CARE TEST, GLUCOSE POINT OF CARE TEST, GLUCOSE (ABNORMAL) INR (02/05/2014 12:04 PM CDT) P athologist Signature INR 1.24 (H) 0.86 - 1.14 [facility] LABS Specimen Anatomical Collection Method Collection Time Receive d Time (Source) Location / / Volume Laterality Blood specimen 02/05/2014 12:04 4 (specimen) PM CDT 12:10 PM CDT Teresa Wright [facility] LAB - BLOOD ORDERABLES Performing Organization Address City/[facility] Phon e Number [facility] [address] LABS (ABNORMAL) CBC with platelets (02/05/2014 12:04 PM CDT) Patholo gist Method Time Signature WBC 7.4 4.0 - 11.0 [facility] 10e9/L [facility] RBC Count 3.31 (L) 4.4 - 5.9 [facility] 10e12/L [facility] Hemoglobin 10.3 (L) 13.3 - [facility] 17.7 g/dL [facility] Hematocrit 31.0 (L) 40.0 - [facility] 53.0 % [facility] MCV 94 78 - 100 [facility] fl [facility] MCH 31.1 26.5 - [facility] 33.0 pg [facility] MCHC 33.2 31.5 - [facility] 36.5 g/dL [facility] RDW 14.7 10.0 - [facility] 15.0 % [facility] Platelet Count 91 (L) 150 - 450 [facility] 10e9/L [facility] Specimen Anatomical Collection Method Collection Time Receive d Time (Source) Location / / Volume Laterality Blood specimen 02/05/2014 12:04 4 (specimen) PM CDT 12:10 PM CDT Omaira Chavez PA-C LAB - BLOOD ORDERABLES Performing Organization Address City/[facility]/ZIP Code Phon e Number [phone] [place] [address] LABS (ABNORMAL) Glucose by meter (02/05/2014 11:25 [...] Basic metabolic panel (02/05/2014 7:02 AM CDT) [facility] gist Method Time Signature Sodium 143 133 - 144 [facility] mmol/L [facility] Potassium 4.3 3.4 - 5.3 [facility] mmol/L [facility] [place] Chloride 107 94 - 109 [facility] mmol/L [facility] Carbon Dioxide 25 20 - 32 [facility] mmol/L [facility] Anion Gap 10 6 - 17 [facility] mmol/L [facility] Glucose 123 (H) 60 - 99 [facility] mg/dL [facility] Urea Nitrogen 66 (H) 7 - 30 [facility] mg/dL [facility] Creatinine 4.77 (H) 0.66 - [facility] 1.25 mg/dL [facility] [place] [facility] GFR Estimate 12 (L) >60 [facility] mL/min/1.7 [facility] LABS GFR Estimate If 15 (L) >60 [facility] Black mL/min/1.7 [facility] LABS Calcium 9.4 8.5 - 10.4 [facility] mg/dL [facility] Specimen Anatomical Collection Method Collection Time Receive d Time (Source) Location / / Volume Laterality Blood specimen 02/05/2014 7:02 AM 014 7:05 (specimen) CDT AM CDT Omaira Chavez PA-C LAB - BLOOD ORDERABLES Performing Organization Address City/[facility]/ZIP Code Phon e Number [address] LABS (ABNORMAL) Phosphorus (02/05/2014 7:02 AM CDT) P athologist Signature Phosphorus 5.7 (H) 2.5 - 4.5 [facility] mg/dL [place] LABS Specimen Anatomical Collection Method Collection Time Receive d Time (Source) Location / / Volume Laterality Blood specimen 02/05/2014 7:02 AM 014 7:05 (specimen) CDT AM CDT Omaira Chavez PA-C LAB - BLOOD ORDERABLES Performing Organization Address City/[facility]/ZIP Code Phon e Number [address] LABS Magnesium (02/05/2014 7:02 AM CDT) P athologist Signature Magnesium 2.0 1.6 - 2.3 [facility] mg/dL [place] LABS Specimen Anatomical Collection Method Collection Time Receive d Time (Source) Location / / Volume Laterality Blood specimen 02/05/2014 7:02 AM 014 7:05 (specimen) CDT AM CDT Omaira Chavez PA-C LAB - BLOOD ORDERABLES Performing Organization Address City/[facility]/ZIP Code Phon e Number [address] LABS (ABNORMAL) CBC with platelets differential (02/05/2014 7:02 AM CDT) Patholo gist Method Time Signature WBC 8.9 4.0 - [facility] 11.0 [place] 10e9/L [place] LABS RBC Count 3.20 (L) 4.4 - 5.9 [facility] 10e12/L [facility] LABS Hemoglobin 9.7 (L) 13.3 - [facility] 17.7 g/dL [facility] LABS Hematocrit 30.0 (L) 40.0 - [facility] 53.0 % [facility] LABS MCV 94 78 - 100 [facility] fl [facility] [place] LABS MCH 30.3 26.5 - [facility] 33.0 pg [facility] LABS MCHC 32.3 31.5 - [facility] 36.5 g/dL [facility] LABS RDW 14.6 10.0 - [facility] 15.0 % [facility] LABS Platelet Count 96 (L) 150 - 450 [facility] 10e9/L [facility] LABS Diff Method Automated [facility] Method [facility] LABS % Neutrophils 90.2 % [facility] LABS % Lymphocytes 4.4 % [facility] LABS % Monocytes 5.2 % [facility] LABS % Eosinophils 0.0 % [facility] LABS % Basophils 0.0 % [facility] LABS % Immature 0.2 % [facility] Granulocytes [facility] LABS Absolute 8.1 1.6 - 8.3 [facility] Neutrophil 10e9/L [facility] LABS Absolute 0.4 (L) 0.8 - 5.3 [facility] Lymphocytes 10e9/L [facility] LABS Absolute 0.5 0.0 - 1.3 [facility] Monocytes 10e9/L [facility] LABS Absolute 0.0 0.0 - 0.7 [facility] Eosinophils 10e9/L [facility] LABS Absolute 0.0 0.0 - 0.2 [facility] Basophils 10e9/L [facility] LABS Abs Immature 0.0 0 - 0.4 [facility] Granulocytes 10e9/L [facility] LABS Specimen Anatomical Collection Method Collection Time Receive d Time (Source) Location / / Volume Laterality Blood specimen 02/05/2014 7:02 AM 014 7:05 (specimen) CDT AM CDT Omaira Chavez PA-C LAB - BLOOD ORDERABLES Performing Organization Address City/State/ZIP Code Phon e Number [facility] [address] [place] [address] [facility] LABS (ABNORMAL) Parathormone intact (02/05/2014 7:02 AM CDT) Patholo gist Method Time Signature Parathyroid 362 (H) 12 - 72 [facility] Hormone Intact pg/mL [facility] LABS Specimen Anatomical Collection Method Collection Time Receive d Time (Source) Location / / Volume Laterality Blood specimen 02/05/2014 7:02 AM 014 7:05 (specimen) CDT AM CDT Sina Robison MD LAB - BLOOD ORDERABLES Performing Organization Address City/[facility]/ZIP Code Phon e Number [facility] [address] LABS (ABNORMAL) Ferritin (02/05/2014 7:02 AM CDT) athologist Signature Ferritin 932 (H) 20 - 300 [facility] ng/mL [place] LABS Specimen Anatomical Collection Method Collection Time Receive d Time (Source) Location / / Volume Laterality Blood specimen 02/05/2014 7:02 AM 014 7:05 (specimen) CDT AM CDT Sina Robison MD LAB - BLOOD ORDERABLES Performing Organization Address City/State/ZIP Code Phon e Number [facility] [address] LABS (ABNORMAL) Iron and iron binding capacity (02/05/2014 7:02 AM CDT) Analysis Performed At Patho logist Time Signature Iron 119 35 - 180 [facility] ug/dL [facility] LABS Iron Binding 207 (L) 240 - 430 [facility] Cap ug/dL [facility] LABS Iron Saturation 58 (H) 15 - 46 % [facility] Index [facility] LABS Specimen Anatomical Collection Method Collection Time Receive d Time (Source) Location / / Volume Laterality Blood specimen 02/05/2014 7:02 AM 014 7:05 (specimen) CDT AM CDT Sina Robison MD LAB - BLOOD ORDERABLES Performing Organization Address City/[facility]/ZIP Code Phon e Number [facility] [address] LABS (ABNORMAL) Glucose by meter (02/05/2014 [...] LAB - BEAJ POCT Performing Organization Address [facility] Code Phon e Number FV POINT OF [...] LARES - BEAJ POCT Performing Organization Address City/[facility] Code Phon e Number FV POINT OF [...] LARES - BEAJ POCT Performing Organization Address City/[facility] Code Phon e Number FV POINT OF [...] LAB - BEAJ POCT Performing Organization Address City/[facility] Phon e Number FV POINT [...] LAB - BEAJ POCT Performing Organization Address [facility] Phon e Number FV POINT [...] LAB - BEAJ POCT Performing Organization Address [facility] Phon e Number FV POINT [...] LARES - BEAJ POCT Performing Organization Address [facility] Phon e Number FV POINT [...] Carr MD ECG ORDERABLES Performing Organization Address [facility] Phon e Number RADIOLOGY RESULTS (ABNORMAL) Glucose by meter (02/04/2014 10:56 PM CDT) P athologist Signature Glucose 161 (H) 60 - 99 POINT OF CARE mg/dL TEST, GLUCOSE Specimen Anatomical Collection Method Collection Time Receive d Time (Source) Location / / Volume Laterality 02/04/2014 10:56 02/04/2014 PM CDT 11:00 PM CDT Migel LARES - ROBERT POCT Performing Organization Address [facility] Phon e Number FV POINT [...] LARES - ROBERT POCT Performing Organization Address [facility] Phon e Number FV POINT [...] CDT Migel JONES POCT Performing Organization Address [facility] Phon e Number FV POINT [...] athologist Signature Troponin I 0.016 0.000 - [facility] 0.034 ug/L [place] LABS Specimen Anatomical Collection Method Collection Time Receive d Time (Source) Location / / Volume Laterality Blood specimen 02/04/2014 7:10 PM 014 7:23 (specimen) CDT PM CDT Adeline Diaz MD LAB - BLOOD ORDERABLES Performing Organization Address City/[facility]/ZIP Code Phon e Number [phone] [place] [address] LABS (ABNORMAL) Glucose by meter (02/04/2014 7:01 [...] athologist Signature Troponin I 0.025 0.000 - [facility] 0.034 ug/L CAMPUS LABS Specimen Anatomical Collection Method Collection Time Receive d Time (Source) Location / / Volume Laterality Blood specimen 02/04/2014 12:42 4 (specimen) PM CDT 12:45 PM CDT Adeline Diaz MD LAB - BLOOD ORDERABLES Performing Organization Address City/State/ZIP Code Phon e Number [address] [address] [facility] LABS (ABNORMAL) Glucose by meter (02/04/2014 12:27 PM CDT) P athologist Signature Glucose 140 (H) 60 - 99 POINT OF CARE mg/dL TEST, GLUCOSE Specimen Anatomical Collection Method Collection Time Receive d Time (Source) Location / / Volume Laterality 02/04/2014 12:27 02/04/2014 PM CDT 12:30 PM CDT Migel Merchant MD LAB - BEAJ POCT Performing Organization Address [facility] Phon e Number FV POINT [...] LAB - BEAJ POCT Performing Organization Address [facility] Phon e Number FV POINT [...] LAB - BEAJ POCT Performing Organization Address [facility] Phon e Number FV POINT OF CARE TEST, GLUCOSE POINT OF CARE TEST, GLUCOSE EKG 12-lead, complete (02/04/2014 9:21 AM CDT) [facility] gist Method Time Signature Interpretation ECG Click View RADIOLOGY Image link RESULTS to view waveform and result Specimen (Source) Anatomical Collection Method Collection Time Re ceived Time Location / / Volume Laterality 02/04/2014 9:21 AM CDT Omaira Chavez PA-C ECG ORDERABLES Performing Organization Address [facility] Phon e Number RADIOLOGY RESULTS (ABNORMAL) Glucose by meter (02/04/2014 9:02 AM CDT) P athologist Signature Glucose 203 (H) 60 - 99 POINT OF CARE mg/dL TEST, GLUCOSE Specimen Anatomical Collection Method Collection Time Receive d Time (Source) Location / / Volume Laterality 02/04/2014 9:02 AM 4 9:05 CDT AM CDT Migel Merchant MD LAB - BEAKER POCT Performing Organization Address [facility] Phon e Number FV POINT [...] LAB - BEAJ POCT Performing Organization Address [facility] Phon e Number FV POINT [...] LAB - BEAJ POCT Performing Organization Address [facility] Phon e Number FV POINT OF CARE TEST, GLUCOSE POINT OF CARE TEST, GLUCOSE EKG 12-lead, complete (02/04/2014 7:03 AM CDT) [facility] Method Time Signature Interpretation ECG Click View RADIOLOGY Image link RESULTS to view waveform and result Specimen (Source) Anatomical Collection Method Collection Time Re ceived Time Location / / Volume Laterality 02/04/2014 7:03 AM CDT Caitlin Owens MD ECG ORDERABLES Performing Organization Address [facility] Phon e Number RADIOLOGY RESULTS [...] Troponin I ES <0.012 0.000 - [facility] [place] 0.034 ug/L CAMPUS LABS Specimen Anatomical Collection Method Collection Time Receive d Time (Source) Location / / Volume Laterality 02/04/2014 5:49 AM 4 5:51 CDT AM CDT Caitlin Owens MD LAB - BLOOD ORDERABLES Performing Organization Address City/State/ZIP Code Phon e Number [phone] [place] [address] [facility] LABS (ABNORMAL) Basic metabolic panel (02/04/2014 5:49 AM CDT) Patholo gist Method Time Signature Sodium 142 133 - 144 [facility] mmol/L [facility] LABS Potassium 4.9 3.4 - 5.3 [facility] mmol/L [facility] Chloride 107 94 - 109 [facility] mmol/L [facility] [place] [facility] Carbon Dioxide 23 20 - 32 [facility] mmol/L [facility] [place] [facility] Anion Gap 12 6 - 17 [facility] mmol/L [facility] [place] [facility] Glucose 151 (H) 60 - 99 [facility] mg/dL [facility] LABS Urea Nitrogen 57 (H) 7 - 30 [facility] mg/dL [facility] [place] [facility]S Creatinine 5.94 (H) 0.66 - [facility] 1.25 mg/dL [facility] [place] [facility] GFR Estimate 10 (L) >60 [facility] mL/min/1.7 [facility] m2 CAMPUS LABS GFR Estimate If 12 (L) >60 [facility] Black mL/min/1.7 [place] m2 CAMPUS LABS Calcium 9.4 8.5 - 10.4 [facility] mg/dL [facility] LABS Specimen Anatomical Collection Method Collection Time Receive d Time (Source) Location / / Volume Laterality Blood specimen 02/04/2014 5:49 AM 014 5:51 (specimen) CDT AM CDT Omaira Chavez PA-C LAB - BLOOD ORDERABLES Performing Organization Address City/[facility]/ZIP Code Phon e Number [address] LABS (ABNORMAL) Phosphorus (02/04/2014 5:49 AM CDT) P athologist Signature Phosphorus 6.3 (H) 2.5 - 4.5 [facility] mg/dL [place] LABS Specimen Anatomical Collection Method Collection Time Receive d Time (Source) Location / / Volume Laterality Blood specimen 02/04/2014 5:49 AM 014 5:51 (specimen) CDT AM CDT Omaira Chavez PA-C LAB - BLOOD ORDERABLES Performing Organization Address City/[facility]/ZIP Code Phon e Number [address] LABS Magnesium (02/04/2014 5:49 AM CDT) athologist Signature Magnesium 2.1 1.6 - 2.3 [facility] mg/dL [place] LABS Specimen Anatomical Collection Method Collection Time Receive d Time (Source) Location / / Volume Laterality Blood specimen 02/04/2014 5:49 AM 014 5:51 (specimen) CDT AM CDT Omaira Chavez PA-C LAB - BLOOD ORDERABLES Performing Organization Address City/[facility]/ZIP Code Phon e Number [address] LABS (ABNORMAL) CBC with platelets differential (02/04/2014 5:49 AM CDT) [facility] Method Time Signature WBC 13.8 (H) 4.0 - [facility] 11.0 [place] 10e9/L [place] LABS RBC Count 3.10 (L) 4.4 - 5.9 [facility] 10e12/L [facility] LABS Hemoglobin 9.5 (L) 13.3 - [facility] 17.7 g/dL [facility] LABS Hematocrit 28.7 (L) 40.0 - [facility] 53.0 % [facility] LABS MCV 93 78 - 100 [facility] fl [facility] LABS MCH 30.6 26.5 - [facility] 33.0 pg [facility] LABS MCHC 33.1 31.5 - [facility] 36.5 g/dL [facility] LABS RDW 14.6 10.0 - [facility] 15.0 % [facility] LABS Platelet Count 91 (L) 150 - 450 [facility] 10e9/L [facility] LABS Diff Method Automated [facility] Method [facility] LABS % Neutrophils 95.8 % [facility] LABS % Lymphocytes 1.2 % [facility] LABS % Monocytes 2.8 % [facility] LABS % Eosinophils 0.0 % [facility] % Basophils 0.0 % [facility] % Immature 0.2 % [facility] Granulocytes [facility] LABS Absolute 13.2 (H) 1.6 - 8.3 [facility] Neutrophil 10e9/L [facility] LABS Absolute 0.2 (L) 0.8 - 5.3 [facility] Lymphocytes 10e9/L [facility] LABS Absolute 0.4 0.0 - 1.3 [facility] Monocytes 10e9/L [facility] LABS Absolute 0.0 0.0 - 0.7 [facility] Eosinophils 10e9/L [facility] LABS Absolute 0.0 0.0 - 0.2 [facility] Basophils 10e9/L [facility] LABS Abs Immature 0.0 0 - 0.4 [facility] Granulocytes 10e9/L [facility] LABS Specimen Anatomical Collection Method Collection Time Receive d Time (Source) Location / / Volume Laterality Blood specimen 02/04/2014 5:49 AM 014 5:51 (specimen) CDT AM CDT Omaira Chavez PA-C LAB - BLOOD ORDERABLES Performing Organization Address City/State/ZIP Code Phon e Number [phone] [place] [address] LABS (ABNORMAL) Glucose by meter (02/04/2014 5:33 [...] LAB - BEAJ POCT Performing Organization Address [facility] Phon e Number FV POINT [...] LARES - ROBERT POCT Performing Organization Address [facility] Phon e Number FV POINT [...] LARES - ROBERT POCT Performing Organization Address [facility] Phon e Number FV POINT [...] athologist Signature Potassium 4.8 3.4 - 5.3 [facility] mmol/L CAMPUS LABS Specimen Anatomical Collection Method Collection Time Receive d Time (Source) Location / / Volume Laterality Blood specimen 02/03/2014 10:16 4 (specimen) PM CDT 10:19 PM CDT Caitlin Owens MD LAB - BLOOD ORDERABLES Performing Organization Address City/[facility]/ZIP Code Phon e Number [facility] [address] LABS (ABNORMAL) Hemoglobin (02/03/2014 10:16 PM CDT) athologist Signature Hemoglobin 9.4 (L) 13.3 - 17.7 [facility] g/dL CAMPUS LABS Specimen Anatomical Collection Method Collection Time Receive d Time (Source) Location / / Volume Laterality Blood specimen 02/03/2014 10:16 4 (specimen) PM CDT 10:19 PM CDT Caitlin Owens MD LAB - BLOOD ORDERABLES Performing Organization Address City/[facility]/ZIP Code Phon e Number [facility] [address] LABS (ABNORMAL) Glucose by meter (02/03/2014 9:55 PM CDT) P athologist Signature Glucose 167 (H) 60 - 99 POINT OF CARE mg/dL TEST, GLUCOSE Specimen Anatomical Collection Method Collection Time Receive d Time (Source) Location / / Volume Laterality 02/03/2014 9:55 PM 4 CDT 10:00 PM CDT Migel Merchant MD LAB - ROBERT POCT Performing Organization Address [facility]/ZIP Code Phon e Number FV POINT [...] LAB - ROBERT POCT Performing Organization Address [facility] Phon e Number FV POINT [...] LAB - BEAJ POCT Performing Organization Address [facility] Phon e Number FV POINT [...] LAB - BEAJ POCT Performing Organization Address [facility] Phon e Number FV POINT OF CARE TEST, GLUCOSE POINT OF CARE TEST, GLUCOSE Potassium (02/03/2014 6:52 PM CDT) P athologist Signature Potassium 4.7 3.4 - 5.3 [facility] mmol/L CAMPUS LABS Specimen Anatomical Collection Method Collection Time Receive d Time (Source) Location / / Volume Laterality Blood specimen 02/03/2014 6:52 PM 014 6:53 (specimen) CDT PM CDT Caitlin Owens MD LAB - BLOOD ORDERABLES Performing Organization Address City/[facility]/ZIP Code Phon e Number [address] LABS (ABNORMAL) Hemoglobin (02/03/2014 6:52 PM CDT) athologist Signature Hemoglobin 9.6 (L) 13.3 - 17.7 [facility] g/dL CAMPUS LABS Specimen Anatomical Collection Method Collection Time Receive d Time (Source) Location / / Volume Laterality Blood specimen 02/03/2014 6:52 PM 014 6:53 (specimen) CDT PM CDT Caitlin Owens MD LAB - BLOOD ORDERABLES Performing Organization Address [facility] Code Phon e Number [phone] [place] [address] LABS (ABNORMAL) Glucose by meter (02/03/2014 6:00 PM CDT) athologist Signature Glucose 140 (H) 60 - 99 POINT OF CARE mg/dL TEST, GLUCOSE Specimen Anatomical Collection Method Collection Time Receive d Time (Source) Location / / Volume Laterality 02/03/2014 6:00 PM 4 6:05 CDT PM CDT Migel Merchant MD LAB - BEAKER POCT Performing Organization Address City/[facility]/ZIP Code Phon e Number FV POINT [...] athologist Signature Potassium 4.7 3.4 - 5.3 [facility] mmol/L CAMPUS LABS Specimen Anatomical Collection Method Collection Time Receive d Time (Source) Location / / Volume Laterality Blood specimen 02/03/2014 1:41 PM 014 1:43 (specimen) CDT PM CDT Caitlin Owens MD LAB - BLOOD ORDERABLES Performing Organization Address City/State/ZIP Code Phon e Number [phone] [place] [address] LABS (ABNORMAL) Hemoglobin (02/03/2014 1:41 PM CDT) P athologist Signature Hemoglobin 9.8 (L) 13.3 - 17.7 [facility] g/dL CAMPUS LABS Specimen Anatomical Collection Method Collection Time Receive d Time (Source) Location / / Volume Laterality Blood specimen 02/03/2014 1:41 PM 2 014 1:43 (specimen) CDT PM CDT Caitlin Owens MD LAB - BLOOD ORDERABLES Performing Organization Address City/State/ZIP Code Phon e Number [address] [address] [facility] LABS (ABNORMAL) Glucose by meter (02/03/2014 1:10 PM CDT) P athologist Signature Glucose 135 (H) 60 - 99 POINT OF CARE mg/dL TEST, GLUCOSE Specimen Anatomical Collection Method Collection Time Receive d Time (Source) Location / / Volume Laterality 02/03/2014 1:10 PM 4 1:15 CDT PM CDT Migel LARES - BEAJ POCT Performing Organization Address City/[facility]/ZIP Code Phon e Number FV POINT [...] athologist Signature Potassium 4.8 3.4 - 5.3 [facility] mmol/L CAMPUS LABS Specimen Anatomical Collection Method Collection Time Receive d Time (Source) Location / / Volume Laterality Blood specimen 02/03/2014 10:11 4 (specimen) AM CDT 10:23 AM CDT Caitlin Owens MD LAB - BLOOD ORDERABLES Performing Organization Address City/[facility]/ZIP Code Phon e Number [address] LABS (ABNORMAL) Hemoglobin (02/03/2014 10:11 AM CDT) P athologist Signature Hemoglobin 9.7 (L) 13.3 - 17.7 [facility] g/dL [place] LABS Specimen Anatomical Collection Method Collection Time Receive d Time (Source) Location / / Volume Laterality Blood specimen 02/03/2014 10:11 4 (specimen) AM CDT 10:23 AM CDT Caitlin Owens MD LAB - BLOOD ORDERABLES Performing Organization Address [facility] Phon e Number [address] LABS (ABNORMAL) Glucose by meter (02/03/2014 9:58 AM CDT) P athologist Signature Glucose 168 (H) 60 - 99 POINT OF CARE mg/dL TEST, GLUCOSE Specimen Anatomical Collection Method Collection Time Receive d Time (Source) Location / / Volume Laterality 02/03/2014 9:58 AM 4 CDT 10:00 AM CDT Migel Merchant MD LAB - BEAKER POCT Performing Organization Address City/[facility]/ZIP Code Phon e Number FV POINT [...] LAB - BEAKER POCT Performing Organization Address City/[facility]/ZIP Code Phon e Number FV POINT [...] LARES - ROBERT POCT Performing Organization Address City/[facility]/ZIP Code Phon e Number FV POINT [...] LARES - ROBERT POCT Performing Organization Address City/[facility]/ZIP Code Phon e Number FV POINT [...] Basic metabolic panel (02/03/2014 5:38 AM CDT) [facility] gist Method Time Signature Sodium 141 133 - 144 [facility] mmol/L [facility] LABS Potassium 4.4 3.4 - 5.3 [facility] mmol/L [facility] LABS Chloride 105 94 - 109 [facility] mmol/L [facility] LABS Carbon Dioxide 20 20 - 32 [facility] mmol/L [facility] LABS Anion Gap 15 6 - 17 [facility] mmol/L [facility] LABS Glucose 170 (H) 60 - 99 [facility] mg/dL [facility] LABS Urea Nitrogen 49 (H) 7 - 30 [facility] mg/dL [facility] LABS Creatinine 6.38 (H) 0.66 - [facility] 1.25 mg/dL [facility] LABS GFR Estimate 9 (L) >60 [facility] mL/min/1.7 [place] m2 [place] LABS GFR Estimate If 11 (L) >60 [facility] Black mL/min/1.7 [place] m2 CAMPUS LABS Calcium 9.1 8.5 - 10.4 [facility] mg/dL [facility] Specimen Anatomical Collection Method Collection Time Receive d Time (Source) Location / / Volume Laterality Blood specimen 02/03/2014 5:38 AM 014 5:40 (specimen) CDT AM CDT Omaira Chavez PA-C LAB - BLOOD ORDERABLES Performing Organization Address City/[facility]/ZIP Code Phon e Number [facility] [address] LABS (ABNORMAL) Phosphorus (02/03/2014 5:38 AM CDT) P athologist Signature Phosphorus 4.7 (H) 2.5 - 4.5 [facility] [place] mg/dL [place] LABS Specimen Anatomical Collection Method Collection Time Receive d Time (Source) Location / / Volume Laterality Blood specimen 02/03/2014 5:38 AM 014 5:40 (specimen) CDT AM CDT Omaira Chavez PA-C LAB - BLOOD ORDERABLES Performing Organization Address City/State/ZIP Code Phon e Number [facility] [address] LABS Magnesium (02/03/2014 5:38 AM CDT) P athologist Signature Magnesium 2.0 1.6 - 2.3 [facility] [place] mg/dL [place] LABS Specimen Anatomical Collection Method Collection Time Receive d Time (Source) Location / / Volume Laterality Blood specimen 02/03/2014 5:38 AM 014 5:40 (specimen) CDT AM CDT Omaira Chavez PA-C LAB - BLOOD ORDERABLES Performing Organization Address City/State/ZIP Code Phon e Number [id number] [place] [address] [facility] ([facility]) CBC with platelets differential (02/03/2014 5:38 AM CDT) [facility] gist Method Time Signature WBC 13.2 (H) 4.0 - [facility] 11.0 [facility]ITY 10e9/L CAMPUS LABS RBC Count 3.20 (L) 4.4 - 5.9 [facility] 10e12/L [facility] LABS Hemoglobin 9.9 (L) 13.3 - [facility] 17.7 g/dL [facility] LABS Hematocrit 30.2 (L) 40.0 - [facility] 53.0 % [facility] LABS MCV 94 78 - 100 [facility] fl [facility] LABS MCH 30.9 26.5 - [facility] 33.0 pg [facility] LABS MCHC 32.8 31.5 - [facility] 36.5 g/dL [facility] LABS RDW 14.5 10.0 - [facility] 15.0 % [facility] LABS Platelet Count 108 (L) 150 - 450 [facility] 10e9/L [facility] LABS Diff Method Automated [facility] Method [facility] LABS % Neutrophils 96.9 % [facility] LABS % Lymphocytes 0.7 % [facility] LABS % Monocytes 2.1 % [facility] LABS % Eosinophils 0.0 % [facility] LABS % Basophils 0.1 % [facility] LABS % Immature 0.2 % [facility] Granulocytes [facility] LABS Absolute 12.8 (H) 1.6 - 8.3 [facility] Neutrophil 10e9/L [facility] LABS Absolute 0.1 (L) 0.8 - 5.3 [facility] Lymphocytes 10e9/L [facility] LABS Absolute 0.3 0.0 - 1.3 [facility] Monocytes 10e9/L [facility] LABS Absolute 0.0 0.0 - 0.7 [facility] Eosinophils 10e9/L [facility] LABS Absolute 0.0 0.0 - 0.2 [facility] Basophils 10e9/L [facility] LABS Abs Immature 0.0 0 - 0.4 [facility] Granulocytes 10e9/L [facility] LABS Specimen Anatomical Collection Method Collection Time Receive d Time (Source) Location / / Volume Laterality Blood specimen 02/03/2014 5:38 AM 014 5:40 (specimen) CDT AM CDT Omaira Chavez PA-C LAB - BLOOD ORDERABLES Performing Organization Address City/[facility]/ZIP Code Phon e Number [facility] [address] LABS (ABNORMAL) Hemoglobin A1c (02/03/2014 5:38 AM CDT) Analysis Performed At Patho logist Time Signature Hemoglobin A1C 6.2 (H) 4.3 - 6.0 [facility] Specimen Anatomical Collection Method Collection Time Receive d Time (Source) Location / / Volume Laterality Blood specimen 02/03/2014 5:38 AM 014 5:40 (specimen) CDT AM CDT Caitlin Owens MD LAB - BLOOD ORDERABLES Performing Organization Address City/[facility]/ZIP Code Phon e Number [address] LABS (ABNORMAL) Glucose by meter (02/03/2014 5:05 AM CDT) P athologist Signature Glucose 176 (H) 60 - 99 POINT OF CARE mg/dL TEST, GLUCOSE Specimen Anatomical Collection Method Collection Time Receive d Time (Source) Location / / Volume Laterality 02/03/2014 5:05 AM 4 5:10 CDT AM CDT Migel Merchant MD LAB - BEAKER POCT Performing Organization Address City/[facility]/ZIP Code Phon e Number FV POINT [...] LAB - BEAKER POCT Performing Organization Address City/[facility]/ZIP Code Phon e Number FV POINT [...] LAB - BEAKER POCT Performing Organization Address City/[facility]/ZIP Code Phon e Number FV POINT OF CARE TEST, GLUCOSE POINT OF CARE TEST, GLUCOSE Potassium (02/03/2014 1:18 AM CDT) athologist Signature Potassium 4.7 3.4 - 5.3 [facility] mmol/L CAMPUS LABS Specimen Anatomical Collection Method Collection Time Receive d Time (Source) Location / / Volume Laterality Blood specimen 02/03/2014 1:18 AM 014 1:20 (specimen) CDT AM CDT Caitlin Owens MD LAB - BLOOD ORDERABLES Performing Organization Address City/[facility]/ZIP Code Phon e Number [address] [address] [facility] LABS (ABNORMAL) Hemoglobin (02/03/2014 1:18 AM CDT) athologist Signature Hemoglobin 9.8 (L) 13.3 - 17.7 [facility] g/dL [place] LABS Specimen Anatomical Collection Method Collection Time Receive d Time (Source) Location / / Volume Laterality Blood specimen 02/03/2014 1:18 AM 014 1:20 (specimen) CDT AM CDT Caitlin Owens MD LAB - BLOOD ORDERABLES Performing Organization Address City/State/ZIP Code Phon e Number [facility] [address] [place] [address] [facility] LABS (ABNORMAL) Glucose by meter [...] LAB - BEAKER POCT Performing Organization Address City/[facility]/ZIP Code Phon e Number FV POINT [...] athologist Signature Phosphorus 4.4 2.5 - 4.5 [facility] mg/dL [place] LABS Specimen Anatomical Collection Method Collection Time Receive d Time (Source) Location / / Volume Laterality Blood specimen 02/02/2014 10:50 4 (specimen) PM CDT 11:06 PM CDT Caitlin Owens MD LAB - BLOOD ORDERABLES Performing Organization Address City/State/ZIP Code Phon e Number [facility] [address] [place] [address] [facility] LABS Magnesium (02/02/2014 10:50 PM CDT) P athologist Signature Magnesium 1.8 1.6 - 2.3 [facility]ITY mg/dL CAMPUS LABS Specimen Anatomical Collection Method Collection Time Receive d Time (Source) Location / / Volume Laterality Blood specimen 02/02/2014 10:50 4 (specimen) PM CDT 11:06 PM CDT Caitlin Owens MD LAB - BLOOD ORDERABLES Performing Organization Address City/[facility]/ZIP Code Phon e Number [facility] [address] [place] [address] [facility] LABS (ABNORMAL) Basic metabolic panel (02/02/2014 10:50 PM CDT) [facility] Method Time Signature Sodium 138 133 - 144 [facility] mmol/L [facility] LABS Potassium 4.5 3.4 - 5.3 [facility] mmol/L [facility] LABS Chloride 104 94 - 109 [facility] mmol/L [facility] LABS Carbon Dioxide 25 20 - 32 [facility] mmol/L [facility] LABS Anion Gap 10 6 - 17 [facility] mmol/L [facility] LABS Glucose 134 (H) 60 - 99 [facility] mg/dL [facility] LABS Urea Nitrogen 44 (H) 7 - 30 [facility] mg/dL [facility] LABS Creatinine 6.14 (H) 0.66 - [facility] 1.25 mg/dL [facility] LABS GFR Estimate 9 (L) >60 [facility] mL/min/1.7 [place] m2 CAMPUS LABS GFR Estimate If 11 (L) >60 [facility] Black mL/min/1.7 [place] m2 CAMPUS LABS Calcium 8.8 8.5 - 10.4 [facility] mg/dL [facility] LABS Specimen Anatomical Collection Method Collection Time Receive d Time (Source) Location / / Volume Laterality Blood specimen 02/02/2014 10:50 4 (specimen) PM CDT 11:06 PM CDT Caitlin Owens MD LAB - BLOOD ORDERABLES Performing Organization Address City/State/ZIP Code Phon e Number [facility] [address] [place] [address] [facility] LABS (ABNORMAL) CBC with platelets differential (02/02/2014 10:50 PM CDT) Patholo gist Method Time Signature WBC 8.2 4.0 - [facility] 11.0 [facility] 10e9/L [place] LABS RBC Count 3.34 (L) 4.4 - 5.9 [facility] 10e12/L [facility] LABS Hemoglobin 10.3 (L) 13.3 - [facility] 17.7 g/dL [facility] LABS Hematocrit 30.9 (L) 40.0 - [facility] 53.0 % [facility] LABS MCV 93 78 - 100 [facility] fl [facility] LABS MCH 30.8 26.5 - [facility] 33.0 pg [facility] LABS MCHC 33.3 31.5 - [facility] 36.5 g/dL [facility] LABS RDW 14.3 10.0 - [facility] 15.0 % [facility] LABS Platelet Count 79 (L) 150 - 450 [facility] 10e9/L [facility] LABS Diff Method Automated [facility] Method [facility] LABS % Neutrophils 96.7 % [facility] LABS % Lymphocytes 1.6 % [facility] LABS % Monocytes 1.2 % [facility] % Eosinophils 0.4 % [facility] LABS % Basophils 0.0 % [facility] LAB[facility] % Immature 0.1 % [facility] Granulocytes [facility] LABS Absolute 7.9 1.6 - 8.3 [facility] Neutrophil 10e9/L [facility] LABS Absolute 0.1 (L) 0.8 - 5.3 [facility] Lymphocytes 10e9/L [facility] LABS Absolute 0.1 0.0 - 1.3 [facility] Monocytes 10e9/L [facility] LABS Absolute 0.0 0.0 - 0.7 [facility] Eosinophils 10e9/L [facility] LABS Absolute 0.0 0.0 - 0.2 [facility] Basophils 10e9/L [facility] LABS Abs Immature 0.0 0 - 0.4 [facility] Granulocytes 10e9/L [facility] LABS Specimen Anatomical Collection Method Collection Time Receive d Time (Source) Location / / Volume Laterality Blood specimen 02/02/2014 10:50 4 (specimen) PM CDT 11:06 PM CDT Caitlin Owens MD LAB - BLOOD ORDERABLES Performing Organization Address City/State/ZIP Code Phon e Number [facility] [address] [place] [address] [facility] LAB[facility] (ABNORMAL) VENOUS PANEL (02/02/2014 10:09 PM CDT) Patholo gist Method Time Signature Ph Venous 7.31 (L) 7.32 - [facility] 7.43 pH [facility] LABS PCO2 Venous 52 (H) 40 - 50 [facility] mm Hg [facility] LABS PO2 Venous 34 25 - 47 [facility] mm Hg [facility] LABS Bicarbonate 26 21 - 28 [facility] Venous mmol/L [facility] LABS Base Deficit 0.3 mmol/L [facility] Venous [facility] LABS Comment: Reference range: -7.7 to 1.9 FIO2 45 [facility] [place] LABS Sodium 137 133 - 144 mmol/L [facility] LABS Potassium 4.4 3.4 - 5.3 mmol/L [facility] LABS Hemoglobin 10.0 (L) 13.3 - 17.7 g/dL [facility] LABS Glucose 116 (H) 60 - 99 mg/dL [facility] LABS Calcium Ionized Whole Blood 4.8 4.4 - 5.2 mg/dL [facility] LABS Specimen Anatomical Collection Method Collection Time Receive d Time (Source) Location / / Volume Laterality 02/02/2014 10:09 02/02/2014 PM CDT 10:14 PM CDT Migel Merchant MD LAB - BLOOD ORDERABLES Performing Organization Address City/State/ZIP Code Phon e Number [address] LABS (ABNORMAL) Glucose by meter (02/02/2014 [...] Venous 7.35 7.32 - [facility] 7.43 pH [facility] LABS PCO2 Venous 50 40 - 50 mm [facility] Hg [facility] LABS PO2 Venous 46 25 - 47 mm [facility] Hg [facility] LABS Bicarbonate 28 21 - 28 [facility] Venous mmol/L [facility] LABS Base Excess 1.8 mmol/L [facility] Venous [facility] LABS Comment: Reference range: -7.7 to 1.9 F[facility]2 100% [facility] LABS Sodium 141 133 - 144 mmol/L [facility] LABS Potassium 3.7 3.4 - 5.3 mmol/L [facility] LABS Hemoglobin 10.3 (L) 13.3 - 17.7 g/dL [facility] LABS Glucose 76 60 - 99 mg/dL [facility] LABS Calcium Ionized Whole Blood 4.8 4.4 - 5.2 mg/dL [facility] LABS Specimen Anatomical Collection Method Collection Time Receive d Time (Source) Location / / Volume Laterality 02/02/2014 6:40 PM 4 6:44 CDT PM CDT Migel Merchant MD LAB - BLOOD ORDERABLES Performing Organization Address City/[facility]/ZIP Code Phon e Number [address] [address] [facility] LABS Glucose by meter (02/02/2014 [...] 3:50 CDT PM CDT Migel Merchant MD [facility] [...] MARYELLEN Blood component (02/02/2014 2:07 PM CDT) [facility] g[facility] Method Time Signature Unit Number [id number] [facility] LABS Blood Red Blood [facility] Component Cells [facility] Leukocyte [facility] LABS Reduced Division 00 [facility] LABS Status of No longer [place] Unit available [facility] 02/06/2014 HOSPITAL LAB 0300 Specimen Anatomical Collection Method Collection Time Receive d Time (Source) Location / / Volume Laterality 02/02/2014 2:07 PM 4 2:10 CDT PM CDT Caitlin Owens MD LABORATORY Performing Organization Address City/[facility]/ZIP Code Phon santino Acevedo [place] [address] [address] [place], [place] [address] [facility] LABS [facility] LAB Blood component (02/02/2014 2:07 PM CDT) [facility] gist Method Time Signature Unit Number [id number] [facility] LABS Blood Red Blood [facility] Component Cells [facility] LABS Reduced Division 00 [facility] LABS Status of No longer [place] Unit available [facility] 02/06/2014 HOSPITAL LAB 0300 Specimen Anatomical Collection Method Collection Time Receive d Time (Source) Location / / Volume Laterality 02/02/2014 2:07 PM 4 2:10 CDT PM CDT Caitlin Owens MD LABORATORY Performing Organization Address City/[facility] Code Phon santino Acevedo [place] [address] [address] [place], [place] [address] [facility] LAB ABO/Rh type and screen (02/02/2014 2:07 PM CDT) [facility] gist Method Time Signature Units Ordered 2 [facility] LABS ABO A [facility] LABS RH(D) Pos [facility] LABS Antibody Neg [facility] Screen [facility] LABS Test Valid [facility] At [facility] BLOOD BANK Center,Aide LAB w Hospital Specimen 02/05/2014 [facility] BLOOD BANK LAB Crossmatch Red Blood [facility] Cells [facility] LABS Specimen Anatomical Collection Method Collection Time Receive d Time (Source) Location / / Volume Laterality Blood specimen 02/02/2014 2:07 PM 014 2:10 (specimen) CDT PM CDT Caitlin Owens MD LAB - BLOOD BANK TEST ORDER Performing Organization Address City/[facility]/ZIP Code Phon e Number [facility] [address] [place] [address] [facility] LABS [facility] BLOOD BANK LAB (ABNORMAL) Lipid Profile (02/02/2014 2:07 PM CDT) P athologist Signature Cholesterol 135 <200 mg/dL [facility] LABS Comment: LDL Cholesterol is the primary guide to therapy. The NCEP recommends further evaluation of: patients with cholesterol greater than 200 mg/dL if additional risk facto rs are present, cholesterol greater than 240 mg/dL, triglycerides greater than 1 50 mg/dL, or HDL less than 40 mg/dL. Triglycerides 124 0 - 150 mg/dL [facility] LABS HDL Cholesterol 34 (L) >40 mg/dL [facility] LABS LDL Cholesterol Calculated 77 0 - 129 mg/dL [facility] LABS Comment: LDL Cholesterol is the primary guide to therapy: LDL-cholesterol goal in high risk patients is <100 mg/dL and in very high risk patients is <70 mg/dL. VLDL-Cholesterol 25 0 - 30 mg/dL [facility] LAB[facility] Cholesterol/HDL Ratio 4.0 0.0 - 5.0 [facility] LABS Specimen Anatomical Collection Method Collection Time Receive d Time (Source) Location / / Volume Laterality Blood specimen 02/02/2014 2:07 PM 014 2:08 (specimen) CDT PM CDT Caitlin Owens MD LAB - BLOOD ORDERABLES Performing Organization Address City/[facility]/ZIP Code Phon e Number [facility] [address] [place] [address] [facility] LABS (ABNORMAL) Hemoglobin A1c (02/02/2014 2:07 PM CDT) Analysis Performed At Patho logist Time Signature Hemoglobin A1C 6.2 (H) 4.3 - 6.0 [facility] LABS Specimen Anatomical Collection Method Collection Time Receive d Time (Source) Location / / Volume Laterality Blood specimen 02/02/2014 2:07 PM 014 2:08 (specimen) CDT PM CDT Caitlin Owens MD LAB - BLOOD ORDERABLES Performing Organization Address City/State/ZIP Code Phon e Number [facility] [address] [place] [address] [facility] LABS Hepatitis C antibody (02/02/2014 2:07 PM CDT) [facility] Signature Hepatitis C Negative NEG [facility] Antibody MICROBIOLOGY Specimen Anatomical Collection Method Collection Time Receive d Time (Source) Location / / Volume Laterality Blood specimen 02/02/2014 2:07 PM 02/02/2 014 2:08 (specimen) CDT PM CDT Caitlin Owens MD LAB - BLOOD ORDERABLES Performing Organization Address City/[facility]/ZIP Code Phon e Number [facility] [address] [place] [address] [facility] MICROBIOLOGY Hepatitis B core antibody IgM (02/02/2014 2:07 PM CDT) [facility] Signature Hepatitis B Negative NEG [facility] Core IgM MICROBIOLOGY Specimen Anatomical Collection Method Collection Time Receive d Time (Source) Location / / Volume Laterality Blood specimen 02/02/2014 2:07 PM 014 2:08 (specimen) CDT PM CDT Caitlin Owens MD LAB - BLOOD ORDERABLES Performing Organization Address City/State/ZIP Code Phon e Number [facility] [address] [place], [place] [id number] [place] [address] MICROBIOLOGY Hepatitis B surface antigen (02/02/2014 2:07 PM CDT) [facility] Signature Hep B Surface Negative NEG [facility] Agn MICROBIOLOGY Specimen Anatomical Collection Method Collection Time Receive d Time (Source) Location / / Volume Laterality Blood specimen 02/02/2014 2:07 PM 014 2:08 (specimen) CDT PM CDT Caitlin Owens MD LAB - BLOOD ORDERABLES Performing Organization Address City/[facility]/ZIP Code Phon e Number [facility] [address] [place], [place] [id number] [place] [address] MICROBIOLOGY HIV Antigen Antibody Combo (02/02/2014 2:07 PM CDT) [facility] Signature HIV Antigen Nonreactive NR [facility] Antibody HIV-1 p24 Ag & HIV-1/HIV-2 Ab Not Detected [facility] LABS Specimen Anatomical Collection Method Collection Time Receive d Time (Source) Location / / Volume Laterality Blood specimen 02/02/2014 2:07 PM 014 2:08 (specimen) CDT PM CDT Caitlin Owens MD LAB - BLOOD ORDERABLES Performing Organization Address City/[facility]/ZIP Code Phon e Number [address] LABS EBV Capsid Antibody IgM (02/02/2014 2:07 PM CDT) [facility] Method Time Signature EBV Capsid <0.2 0.0 - 0.8 [facility] Antibody IgM No detectable antibody. [facility] LABS Specimen Anatomical Collection Method Collection Time Receive d Time (Source) Location / / Volume Laterality Blood specimen 02/02/2014 2:07 PM 014 2:08 (specimen) CDT PM CDT Caitlin Owens MD LAB - BLOOD ORDERABLES Performing Organization Address [facility] Code Phon e Number [address] LABS (ABNORMAL) EBV Capsid Antibody IgG (02/02/2014 2:07 PM CDT) [facility] Method Time Signature EBV Capsid >8.0 0.0 - 0.8 [facility] Antibody IgG Positive, suggests recent or past exposure [facility] () [place] LABS Specimen Anatomical Collection Method Collection Time Receive d Time (Source) Location / / Volume Laterality Blood specimen 02/02/2014 2:07 PM 014 2:08 (specimen) CDT PM CDT Caitlin Owens MD LAB - BLOOD ORDERABLES Performing Organization Address City/[facility]/ZIP Code Phon e Number [address] LABS CMV antibody IgM (02/02/2014 2:07 PM CDT) [facility] Signature CMV Antibody <0.2 0.0 - 0.8 [facility] IgM Negative [facility] LABS Specimen Anatomical Collection Method Collection Time Receive d Time (Source) Location / / Volume Laterality Blood specimen 02/02/2014 2:07 PM 014 2:08 (specimen) CDT PM CDT Caitlin Owens MD LAB - BLOOD ORDERABLES Performing Organization Address City/[facility]/[place] [address] [facility] LABS (ABNORMAL) CMV Antibody IgG (02/02/2014 2:07 PM CDT) P athologist Signature CMV Antibody 7.8 (H) 0.0 - 0.8 [facility] IgG AI [facility] LABS Comment: Positive Specimen Anatomical Collection Method Collection Time Receive d Time (Source) Location / / Volume Laterality Blood specimen 02/02/2014 2:07 PM 014 2:08 (specimen) CDT PM CDT Caitlin Owens MD LAB - BLOOD ORDERABLES Performing Organization Address City/State/ZIP Code Phon e Number [facility] [address] [place] [address] [facility] LABS (ABNORMAL) Comprehensive metabolic panel (02/02/2014 2:07 PM CDT) Patholo gist Method Time Signature Sodium 141 133 - 144 [facility] mmol/L [facility] LABS Potassium 4.2 3.4 - 5.3 [facility] mmol/L [facility] LABS Chloride 101 94 - 109 [facility] mmol/L [facility] LABS Carbon Dioxide 26 20 - 32 [facility] mmol/L [facility] LABS Anion Gap 13 6 - 17 [facility] mmol/L [facility] LABS Glucose 112 (H) 60 - 99 [facility] mg/dL [facility] LABS Urea Nitrogen 42 (H) 7 - 30 [facility] mg/dL [facility] LABS Creatinine 6.03 (H) 0.66 - [facility] 1.25 UN[facility]ITY mg/dL CAMPUS LABS GFR Estimate 9 (L) >60 [facility] mL/min/1. [address] LABS GFR Estimate If 11 (L) >60 [facility] Black mL/min/1. [address] LABS Calcium 9.9 8.5 - [facility] 10.4 UN[facility]ERSITY mg/dL CAMPUS LABS Bilirubin Total 0.7 0.2 - 1.3 [facility] mg/dL [facility] LABS Albumin 4.2 3.3 - 4.9 [facility] g/dL [facility] LABS Protein Total 7.5 6.8 - 8.8 [facility] g/dL [facility] RESOURCES LABS Alkaline 88 40 - 150 [facility] Phosphatase U/L [facility]S ALT 33 0 - 70 [facility] U/L [facility]S AST 18 0 - 45 [facility] U/L [facility] Specimen Anatomical Collection Method Collection Time Receive d Time (Source) Location / / Volume Laterality Blood specimen 02/02/2014 2:07 PM 014 2:08 (specimen) CDT PM CDT Caitlin Owens MD LAB - BLOOD ORDERABLES Performing Organization Address City/State/ZIP Code Phon e Number [facility] [address] [place] [address] [facility] (ABNORMAL) CBC with platelets differential (02/02/2014 2:07 PM CDT) [facility] gist Method Time Signature WBC 6.3 4.0 - [facility] 11.0 UNIVERSITY 10e9/L CAMPUS LABS RBC Count 3.71 (L) 4.4 - 5.9 [facility] 10e12/L [facility] Hemoglobin 11.5 (L) 13.3 - [facility] 17.7 g/dL [facility] Hematocrit 33.7 (L) 40.0 - [facility] 53.0 % [facility] MCV 91 78 - 100 [facility] fl [facility] MCH 31.0 26.5 - [facility] 33.0 pg [facility] MCHC 34.1 31.5 - [facility] 36.5 g/dL [facility] RDW 14.0 10.0 - [facility] 15.0 % [facility] [place] [facility] Platelet Count 110 (L) 150 - 450 [facility] 10e9/L [facility] Diff Method Automated [facility] Method [facility] % Neutrophils 52.4 % [facility] LABS % Lymphocytes 32.1 % [facility] LABS % Monocytes 7.9 % [facility] LABS % Eosinophils 7.1 % [facility] LAB[facility] % Basophils 0.3 % [facility] LAB[facility] % Immature 0.2 % [facility] Granulocytes [facility] Absolute 3.3 1.6 - 8.3 [facility] Neutrophil 10e9/L [facility] Absolute 2.0 0.8 - 5.3 [facility] Lymphocytes 10e9/L [facility] Absolute 0.5 0.0 - 1.3 [facility] Monocytes 10e9/L [facility] Absolute 0.5 0.0 - 0.7 [facility] Eosinophils 10e9/L [facility] Absolute 0.0 0.0 - 0.2 [facility] Basophils 10e9/L [facility] Abs Immature 0.0 0 - 0.4 [facility] Granulocytes 10e9/L [facility] Specimen Anatomical Collection Method Collection Time Receive d Time (Source) Location / / Volume Laterality Blood specimen 02/02/2014 2:07 PM 014 2:08 (specimen) CDT PM CDT Caitlin Owens MD LAB - BLOOD ORDERABLES Performing Organization Address City/[facility]/ZIP Code Phon e Number [address] LABS Creatinine urine calculation only (02/02/2014 2:00 PM CDT) P athologist Signature Creatinine 88 mg/dL [facility] Urine [place] [facility] Specimen Anatomical Collection Method Collection Time Receive d Time (Source) Location / / Volume Laterality 02/02/2014 2:00 PM 4 2:12 CDT PM CDT Caitlin Owens MD LAB - URINE ORDERABLES Performing Organization Address City/[facility] Phon e Number [address] LABS (ABNORMAL) Urine culture (02/02/2014 2:00 PM CDT) Component Value Ref Test Analysis Performed At [facility] Range Method Time Signature Specimen Midstream Urine [facility] Description [facility] Special Specimen received [facility] Requests in preservative MICROBIOLOGY Culture Micro <10,000 colonies/mL Gram pos itive cocci No further identification Susceptibility [facility] testing not routinely done [place] CROBIOLOGY <10,000 colonies/mL Strain 2 Gram positive [...] MICRO GENERAL ORDERABL ES Performing Organization Address City/[facility]/ZIP Code Phon e Number [address] LABS [facility] MICROBIOLOGY (ABNORMAL) Protein random urine (02/02/2014 2:00 PM CDT) [facility] [employer] Method Time Signature Protein Random 1.89 g/L [facility] Urine [facility] Protein Total 2.15 (H) 0 - 0.2 [facility] Urine g/gr g/g Cr UNIVERSITY Creatinine CAMPUS LABS Specimen Anatomical Collection Method Collection Time Receive d Time (Source) Location / / Volume Laterality Urine specimen URINE SPECIMEN 02/02/2014 2:00 PM 02/02 2:12 (specimen) OBTAINED BY CLEAN CDT PM CDT CATCH PROCEDURE / Unknown Caitlin Owens MD LAB - URINE ORDERABLES Performing Organization Address City/[facility]/ZIP Code Phon e Number [address] LABS (ABNORMAL) Routine UA with microscopic (02/02/2014 2:00 PM CDT) Patholo gist Method Time Signature Color Urine Light Yellow [facility] UNIVERSITY CAMP[facility] LABS Appearance Urine Clear [facility] LABS Glucose Urine 70 (A) NEG mg/dL [facility] LABS Bilirubin Urine Negative NEG [facility] LABS Ketones Urine Negative NEG mg/dL [facility] UNIVERSITY [place] LABS Specific [place] 1.008 1.003 - [facility] Urine 1.035 UNIVERSITY [...] CAMPUS LABS Source Clean catch [facility] urine [facility] WBC Urine 1 0 - 2 [...] LAB - URINE ORDERABLES Performing Organization Address City/[facility]/ZIP Code Phon e Number [facility] [address] [place] [address] [facility] LABS (ABNORMAL) Glucose by meter (02/02/2014 1:59 PM CDT) P athologist Signature Glucose 115 (H) 60 - 99 POINT OF CARE mg/dL TEST, GLUCOSE Specimen Anatomical Collection Method Collection Time Receive d Time (Source) Location / / Volume Laterality 02/02/2014 1:59 PM 4 2:05 CDT PM CDT Migel Merchant MD LAB - BEAKER POCT Performing Organization Address City/[facility]/ZIP Code Phon e Number [facility] POINT OF CARE TEST, GLUCOSE POINT OF CARE TEST, GLUCOSE EKG 12-lead, tracing only (02/02/2014 1:58 PM CDT) [facility] gist Method Time Signature Interpretation ECG Click View RADIOLOGY Image link RESULTS to view waveform and result Specimen (Source) Anatomical Collection Method Collection Time Re ceived Time Location / / Volume Laterality 02/02/2014 1:58 PM CDT Caitlin Owens MD ECG ORDERABLES Performing Organization Address [facility] Phon e Number RADIOLOGY RESULTS documented [...] dose, When verbally ordered by the prescriber. [place] throat with 1-4 sprays 5 minutes prior [...] 11:15 PM CDT 0.4 mg HYDROmorphone (DILAUDID) MEDICAL CONSULTANT 1 mg/mL Shift Total 02/03/2014 6:24 AM CDT MEDICAL CONSULTANT dose (mg): 0.1, Max MEDICAL CONSULTANT dose (mg): 0.2, Lockout Interval (min): 10 minutes, MEDICAL CONSULTANT Continuous Rate (mg/hr): CONTINUOUS RATE IS NOT [...] dose, When verbally ordered by the prescriber. [place] throat with 1-4 sprays 5 minutes prior [...] Gi isael - Provider: Lynne Gatica [facility] - Reason: Other - Comment: Dose [...] draw. documented in this encounter Care Teams Sports Announcer Relationship Specialty Start Date End Date Momo Forbes PCP - General [facility] Practice 01/02/14 [place] [phone] Ingrid Santana, RN Registered Nurse Transplant 02/10/12 documented as of this encounter
--- OUTSIDE RECORDS SUMMARY | 2022-05-24 11:54 | XMS_ITS | Encounter Summary ---
:1950 Author Organization [place] Address [facility] [place] [address] Care Team Providers Name Role Phone Ingrid Santana RN Unavailable Unavailable Momo Forbes Primary Care Provider Encounter Details Date Type Department Care Team Description 02/02/2014 Results Only LABORATORY RESULTS Migel Merchant MD 420 [facility] 195 [place] [address] (Wo rk) Social History Tobacco [...] T/B Crossmatch Auto (02/02/2014 6:51 PM CDT) [facility] Method Time Signature Crossmatch Donor:ELINOR GUTHRIE [...] Phon e Number [facility]ORAT[facility] Immunology/Histocompatabil [place], [place] [address] [facility] [address] Building, Room 3-580 HISTOTRAC documented in this encounter Visit Diagnoses Not on filedocumented in this encounter Care Teams Surgical Manager Relationship Specialty Start Date End Date Momo Forbes PCP - General Family Practice 01/02/14 [facility] [address] [place] [address] Ingrid Santana, RN Registered Nurse Transplant 02/10/12 documented as of this encounter
--- OUTSIDE RECORDS SUMMARY | 2022-05-24 11:54 | XMS_ITS | Encounter Summary ---
:1950 Author Organization [place] Address [facility]0 [facility] [place] [address] Care Team Providers Name Role Phone Ingrid Santana RN Unavailable Unavailable Momo Forbes Primary Care Provider Encounter Details Date Type Department Care Team Description 02/02/2014 Results Only LABORATORY RESULTS Migel Merchant MD [address] [place] [address] 195 [place] [address] (Wo rk) Social History Tobacco [...] T/B Crossmatch Allo (02/02/2014 6:51 PM CDT) [facility] Method Time Signature Crossmatch Donor:[id number], ?Crossmatch Date:02/02/2014 HISTOTRAC Result (Note) Serum Date [...] Phon e Number [facility] LABORAT[facility] Immunology/Histocompatabil [place], [place] [address] [facility] [address], Room 3-580 HISTOTRAC documented in this encounter Visit Diagnoses Not on filedocumented in this encounter Care Teams Social Studies Teacher Relationship Specialty Start Date End Date Momo Forbes PCP - General Family Practice 01/02/14 [facility] [address] [place] [address] Ingrid Santana, RN Registered Nurse Transplant 02/10/12 documented as of this encounter
--- OUTSIDE RECORDS SUMMARY | 2022-05-24 11:54 | XMS_ITS | Encounter Summary ---
:1950 Author Organization [place] Address [address] [place] [address]. [place] [address] Care Team Providers Name Role Phone Ingrid Santana RN Unavailable Unavailable Momo Forbes Primary Care Provider Encounter Details Date Type Department Care Team Description 02/02/2014 Abstract The Transplant [facility] r 2nd Floor, Clinic 2A [place] [phone] Social History Tobacco Use Types Packs/Day [...] filedocumented in this encounter Care Teams Clinical Professor Relationship Specialty Start Date End Date Momo Forbes PCP - General Family Practice 01/02/14 [facility] [address] [place] [address] Ingrid Santana RN Registered Nurse Transplant 02/10/12 documented as of this encounter
--- OUTSIDE RECORDS SUMMARY | 2022-05-24 11:55 | XMS_ITS | Encounter Summary ---
:1950 Author Organization [place] Address [facility] [place] [address] Care Team Providers Name Role Phone Ingrid Santana RN Unavailable Unavailable Momo Forbes Primary Care Provider Reason for Visit Reason Comments Transplant Encounter Details Date Type Department Care Team Description 02/02/2014 Orders Only Transplant Surgery [place], End stage renal failure Clinic BOGDAN Mae on dialysis (H) 2nd Floor, Clinic 2A (Primary Dx) Tommy [address] [phone] Social History Tobacco Use Types Packs/Day Years [...] disease documented in this encounter Care Teams Product Ambassador Relationship Specialty Start Date End Date Momo Forbes PCP - General Family Practice 01/02/14 [place] [phone] Ingrid Santana, RN Registered Nurse Transplant 02/10/12 documented as of this encounter
--- OUTSIDE RECORDS SUMMARY | 2022-05-24 11:55 | XMS_ITS | Encounter Summary ---
:1950 Author Organization [place] Address [address] [place] [address] Care Team Providers Name Role Phone Ingrid Santana RN Unavailable Unavailable Momo Forbes Primary Care Provider Encounter Details Date Type Department Care Team Description 02/02/2014 Results Only LABORATORY RESULTS Migel Merchant MD 420 [facility] 195 [place] [address] (Wo rk) Social History Tobacco [...] I Single Antigen (02/02/2014 6:51 PM CDT) [facility] Method Time Signature SA1 Test [...] Phon e Number [facility] HLA LABORATORY Immunology/Histocompatabil [place], [place] [address] ity [facility] [address] [facility] [address] Building, Room 3-580 HISTOTRAC documented in this encounter Visit Diagnoses Not on filedocumented in this encounter Care Teams Donation Specialist Relationship Specialty Start Date End Date Momo Forbes PCP - General Family Practice 01/02/14 [facility] [address] [place] [address] Ingrid Santana, RN Registered Nurse Transplant 02/10/12 documented as of this encounter
--- OUTSIDE RECORDS SUMMARY | 2022-05-24 11:55 | XMS_ITS | Encounter Summary ---
:1950 Author Organization [place] Address [address] [place] [address] Care Team Providers Name Role Phone Ingrid Santana RN Unavailable Unavailable Momo Forbes Primary Care Provider Encounter Details Date Type Department Care Team Description 02/02/2014 Results Only LABORATORY RESULTS Migel Merchant MD 420 [facility] 195 [place] [address] (Wo rk) Social History Tobacco [...] II Single Antigen (02/02/2014 6:51 PM CDT) [facility] Method Time Signature SA2 Test [...] Phon e Number [facility] LABORATORY Immunology/Histocompatabil [place], [place] [address] [facility] [address] [facility] [address] Building, Room 3-580 HISTOTRAC documented in this encounter Visit Diagnoses Not on filedocumented in this encounter Care Teams Warp Changer Relationship Specialty Start Date End Date Momo Forbes PCP - General Family Practice 01/02/14 [facility] [address] [place] [address] Ingrid Santana, RN Registered Nurse Transplant 02/10/12 documented as of this encounter
--- OUTSIDE RECORDS SUMMARY | 2022-05-24 11:55 | XMS_ITS | Encounter Summary ---
:1950 Author Organization [place] Address [address] [place] [address]. [place] [address] Care Team Providers Name Role Phone Ingrid Santana RN Unavailable Unavailable Momo Forbes Primary Care Provider Reason for Visit Auth/Cert - Closed Specialty Diagnoses / Procedures Referred By Contact Refer red To Contact Med Surg Diagnoses end stage renal disease dialysis End stage renal failure on dialysis Renal Failure Uu U7a Procedures TRANSPLANT KIDNEY RECIPIENT DONOR [address] [place] [address] Phone: Referral ID Status Reason Start Date Expiration Date Visits Requ ested Visits Authorized [id number] Closed 02/04/2014 08/03/2014 1 1 Encounter Details Date Type Department Care Team Description 02/02/2014 Anesthesia Event [facility] ED Joseph Ivey MD XXX RESIGNED XXX [address] [place] [address] PeriOp Services Leigh Ann Blank MD 420 [facility] 294 [place], [place] [phone] [place] [address] Anesthesia Record Procedure Summary Procedure [...] Hand Inez Mckeon Sara E RN Saima, BODY RECALL INSTRUCTOR RETIRED ETT 02/02/14; 1753; Airway 02/02/14 1753 [...] Take 1 tablet by mouth daily. B saxgiij-V-znvpd acid (NEPHROCAPS) 1 MG capsule Take 1 [...] benefits and alternatives discussed with: patient or operations representative. Possibility of blood products discussed. I [...] plan were discussed with patient/family or family operations representative. All questions were answered and there was agreement to proceed. History & Physical Review Leigh Ann Blank MD Anesthesiology [id number] [phone] 2:47 PM February 02, 2014 Diego Guthrie was seen and examined and the medical history was reviewed with him. The anesthetic plan was discussed, risks were explained and questions were answered. He agrees to proceed as discussed. I have reviewed this note and agree with the assessment and plan. Joseph Ivey M.D. Staff Anesthesiologist [phone] 02/02/2014 4:48 PM documented in this encounter [...] Date/Time Associated Diagnosis Comme nts [facility] AN RI PA CENTRAL Routine 02/02/2014 6:19 PM Re [...] passed easily into [facility]. Hyunnarm Nazia DO RI ANESTHESIA documented in this encounter Visit Diagnoses [...] Intra-op documented in this encounter Care Teams Electrician Control Equipment Relationship Specialty Start Date End Date Momo Forbes PCP - General Family Practice 01/02/14 [facility] [address] [place] [phone] Ingrid Santana, RN Registered Nurse Transplant 02/10/12 documented as of this encounter
--- OUTSIDE RECORDS SUMMARY | 2022-05-24 11:56 | XMS_ITS | Encounter Summary ---
:1950 Author Organization [place] Address [facility] [place] [address] Care Team Providers Name Role Phone Toña Jones MD Primary Care Provider Ingrid Santana RN Unavailable Unavailable Encounter Details Date Type Department Care Team Description 08/25/2012 Results Only LABORATORY RESULTS Barbara Bradley MD [address] [place], [place] [address] Social History Tobacco Use [...] AM Results f or this CROSSMATCH ALLO PAPERHANGER AND PAINTER procedure ar e in the results section. documented in this encounter Results HLA Flow T/B Crossmatch Allo (08/25/2012 9:49 AM PAPERHANGER AND PAINTER) [facility] Method Time Signature Crossmatch Donor:ABRAHAM HICKEY [...] Volume Laterality 08/25/2012 9:49 AM 3 9:06 PAPERHANGER AND PAINTER AM PAPERHANGER AND PAINTER Barbara Bradley MD LAB - IMMUNOLOGY ORDERABLES Performing Organization Address City/State/ZIP Code Phon e Number [facility] HLA LABORATORY Immunology/Histocompatabil [place], [place] [address] ity ealth [facility] C[facility] [address] [facility] [address] Building, Room 3-580 HISTOTRAC documented in this encounter Visit Diagnoses Not on filedocumented in this encounter Care Teams Surveyor Relationship Specialty Start Date End Date Toña Jones MD PCP - General Nephrology 11/25/11 01/01/14 Ingrid Santana, BOGDAN Registered Nurse Transplant 02/10/12 documented as of this encounter
--- OUTSIDE RECORDS SUMMARY | 2022-05-24 11:56 | XMS_ITS | Encounter Summary ---
:1950 Author Organization [place] Address [address] [place] [address] Care Team Providers Name Role Phone Toña Jones MD Primary Care Provider Ingrid Santana RN Unavailable Unavailable Encounter Details Date Type Department Care Team Description 01/17/2013 Results Only LABORATORY RESULTS Barbara Bradley MD [address] [place], [place] [address] Social History Tobacco Use [...] Lukasz Class II Single Antigen (01/17/2013) [facility] Method Time Signature SA2 Test Single [...] Phon e Number [facility] HLA LABORATORY Immunology/Histocompatabil [place], [place] [address] [facility] [address] [facility] [address] Building, Room 3-580 HISTOTRAC documented in this encounter Visit Diagnoses Not on filedocumented in this encounter Care Teams Low Raw Sugar Cutter Relationship Specialty Start Date End Date Toña Jones MD PCP - General Nephrology 11/25/11 01/01/14 Ingrid Santana RN Registered Nurse Transplant 02/10/12 documented as of this encounter
--- OUTSIDE RECORDS SUMMARY | 2022-05-24 11:56 | XMS_ITS | Encounter Summary ---
:1950 Author Organization [place] Address [address] [place] [address]. [place] [address] Care Team Providers Name Role Phone Toña [...] filedocumented in this encounter Care Teams Environmental Emergencies Planner Relationship Specialty Start Date End Date Toña Jones MD PCP - General Nephrology 11/25/11 01/01/14 Momo Forbes PCP - General Family Practice 01/02/14 [facility] [address] [place] [address] Ingrid Santana, RN Registered Nurse Transplant 02/10/12 documented as of this encounter
--- OUTSIDE RECORDS SUMMARY | 2022-05-24 11:56 | XMS_ITS | Encounter Summary ---
:1950 Author Organization [place] Address [address] [place] [address]. [place] [address] Care Team Providers Name Role Phone Toña [...] on filedocumented in this encounter Care Teams Russian History Professor Relationship Specialty Start Date End Date Toña Jones MD PCP - General Nephrology 11/25/11 01/01/14 Momo Forbes PCP - General Family Practice 01/02/14 [facility] [address] [place] [address] Ingrid Santana, RN Registered Nurse Transplant 02/10/12 documented as of this encounter
--- OUTSIDE RECORDS SUMMARY | 2022-05-24 11:56 | XMS_ITS | Encounter Summary ---
:1950 Author Organization [place] Address [facility] [place] [address] Care Team Providers Name Role Phone Ingrid Santana RN Unavailable Unavailable Momo Forbes Primary Care Provider Reason for Visit Reason Onset Date Comments Transplant 02/02/2014 Kidney Offer Encounter Details Date Type Department Care Team Description 02/02/2014 Telephone Transplant Surgery Carmelita Rosario Tran splant (Kidney Clinic RN Offer) 2nd Floor, Clinic [address] [phone] Social History Tobacco Use Types Packs/Day Years [...] filedocumented in this encounter Care Teams Industrial Millwright Relationship Specialty Start Date End Date Momo Forbes PCP - General Family Practice 01/02/[address] [address] Ingrid Santana, RN Registered Nurse Transplant 02/10/12 documented as of this encounter
--- OUTSIDE RECORDS SUMMARY | 2022-05-24 11:56 | XMS_ITS | Encounter Summary ---
:1950 Author Organization [place] Address [facility] [place] [address] Care Team Providers Name Role Phone Toña [...] DM (madeleine betes mellitus), type 2 (H) [address] [phone] Social History Tobacco Use Types [...] uncontrolled documented in this encounter Care Teams Limo Driver Relationship Specialty Start Date End Date Toña Jones MD PCP - General Nephrology 11/25/11 01/01/14 Ingrid aSntana, RN Registered Nurse Transplant 02/10/12 documented as of this encounter
--- OUTSIDE RECORDS SUMMARY | 2022-05-24 11:56 | XMS_ITS | Encounter Summary ---
:1950 Author Organization [place] Address [facility] [place] [address] Care Team Providers Name Role Phone Toña Jones MD Primary Care Provider Ingrid Santana RN Unavailable Unavailable Encounter Details Date Type Department Care Team Description 12/10/2013 Telephone Transplant Surgery C Nazia Bledsoe LPN 2nd Floor, Clinic 2A [place] [phone] Social History Tobacco Use Types Packs/Day [...] on filedocumented in this encounter Care Teams Opticianry Teacher Relationship Specialty Start Date End Date Toña Jones MD PCP - General Nephrology 11/25/11 01/01/14 Ingrid Santana, RN Registered Nurse Transplant 02/10/12 documented as of this encounter
--- OUTSIDE RECORDS SUMMARY | 2022-05-24 11:56 | XMS_ITS | Encounter Summary ---
:1950 Author Organization [place] Address [address] [place] [address] Care Team Providers Name Role Phone Ingrid Santana RN Unavailable Unavailable Momo Forbes Primary Care Provider Encounter Details Date Type Department Care Team Description 01/21/2014 Results Only LABORATORY RESULTS Mingo Dangelo MD [facility] [address] [place] [address] (Wo rk) Social History Tobacco [...] HLA Lukasz Class I Single Antigen (01/21/2014) [facility] gist Method Time Signature SA1 Test SA [...] Phon e Number [facility] HLA LABORATORY Immunology/Histocompatabil [place], [place] [address] ity [facility] [address] Building, Room 3-580 HISTOTRAC documented in this encounter Visit Diagnoses Not on filedocumented in this encounter Care Teams Securities Sales Associate Relationship Specialty Start Date End Date Momo Forbes PCP - General Family Practice 01/02/14 [facility] [address] [place] [address] Ingrid Santana, RN Registered Nurse Transplant 02/10/12 documented as of this encounter
--- OUTSIDE RECORDS SUMMARY | 2022-05-24 11:56 | XMS_ITS | Encounter Summary ---
:1950 Author Organization [place] Address [address] [place] [address] Care Team Providers Name Role Phone Toña Jones MD Primary Care Provider Ingrid Santana RN Unavailable Unavailable Encounter Details Date Type Department Care Team Description 11/05/2013 Results Only LABORATORY RESULTS Barbara Bradley MD [address] [place], [place] [address] Social History Tobacco Use [...] I Single Antigen (11/05/2013 7:20 AM CDT) [facility] Method Time Signature SA1 Test SA [...] Phon e Number [facility] Immunology/Histocompatabil [place], [place] [address] ity [facility] [address] [facility] [address] Building, Room 3-580 HISTOTRAC documented in this encounter Visit Diagnoses Not on filedocumented in this encounter Care Teams Paradichlorobenzene Tender Relationship Specialty Start Date End Date Toña Jones MD PCP - General Nephrology 11/25/11 01/01/14 Ingrid Santana, RN Registered Nurse Transplant 02/10/12 documented as of this encounter
--- OUTSIDE RECORDS SUMMARY | 2022-05-24 11:56 | XMS_ITS | Encounter Summary ---
:1950 Author Organization [place] Address [address] [place] [address] Care Team Providers Name Role Phone Toña Jones MD Primary Care Provider Ingrid Santana RN Unavailable Unavailable Encounter Details Date Type Department Care Team Description 01/17/2013 Results Only LABORATORY RESULTS Barbara Bradley MD [address] [place], [place] [address] Social History Tobacco Use [...] HLA Lukasz Class I Single Antigen (01/17/2013) [facility] Method Time Signature SA1 Test [...] Phon e Number [facility] Immunology/Histocompatabil [place], [place] [address] ity [facility] [address] [facility] [address] Building, Room 3-580 HISTOTRAC documented in this encounter Visit Diagnoses Not on filedocumented in this encounter Care Teams Salesforce Administrator Relationship Specialty Start Date End Date Toña Jones MD PCP - General Nephrology 11/25/11 01/01/14 Ingrid Santana RN Registered Nurse Transplant 02/10/12 documented as of this encounter
--- OUTSIDE RECORDS SUMMARY | 2022-05-24 11:56 | XMS_ITS | Encounter Summary ---
:1950 Author Organization [place] Address [facility] [place] [address] Care Team Providers Name Role Phone Toña [...] Ump Sot Surgery 2nd Floor, Clinic [address] [phone] Referral ID Status Reason Start Date Expiration Date Visits Requ ested Visits Authorized [id number] Closed 12/10/2013 06/08/2014 1 1 Consultation - Closed Specialty Diagnoses / Procedures Referred By Contact Refer red To Contact Diagnoses Organ transplant candidate ESRD (end stage renal disease) on dialysis (H) DM (diabetes mellitus), type 2 (H) Zz Ump Sot Surgery 2nd Floor, [facility] [address]A [address] [phone] Referral ID Status Reason Start Date Expiration Date Visits Requ ested Visits Authorized [id number] Closed 12/10/2013 06/08/2014 1 1 Encounter Details Date Type Department Care Team Description 12/07/2013 Orders Only Transplant Surgery Nazia March LPN Organ transplant candidate (Primary Dx); Clinic Screening for other and unsp ecified cardiovascular conditions; 2nd Floor, Clinic 2A ESRD (end stage renal diseas e) on dialysis (H); Tommy Wilburn DM (madeleine betes mellitus), type 2 (H) [address] [phone] Social History Tobacco Use Types [...] uncontrolled documented in this encounter Care Teams Neurology Physician Relationship Specialty Start Date End Date Toña Jones MD PCP - General Nephrology 11/25/11 01/01/14 Ingrid Santana RN Registered Nurse Transplant 02/10/12 documented as of this encounter
--- OUTSIDE RECORDS SUMMARY | 2022-05-24 11:56 | XMS_ITS | Encounter Summary ---
:1950 Author Organization [place] Address [facility] [place] [address] Care Team Providers Name Role Phone Ingrid Santana RN Unavailable Unavailable Momo Forbes Primary Care Provider Encounter Details Date Type Department Care Team Description 01/21/2014 Results Only LABORATORY RESULTS Mingo Dangelo MD [address] [facility] 195 [place] [address] (Wo rk) Social History Tobacco [...] Results HLA Flow T/B Crossmatch Allo (01/21/2014) [facility] Method Time Signature Crossmatch Donor:[id number], ?Crossmatch Date:02/02/2014 HISTOTRAC Result (Note) Serum Date [...] Immunology/Histocompatabil [place], [place] [address] ity [facility] [address] Building, Room 3-580 HISTOTRAC documented in this encounter Visit Diagnoses Not on filedocumented in this encounter Care Teams Cloth Laminating Supervisor Relationship Specialty Start Date End Date Momo Forbes PCP - General Family Practice 01/02/14 [facility] [address] [place] [address] Ingrid Santana, RN Registered Nurse Transplant 02/10/12 documented as of this encounter
--- OUTSIDE RECORDS SUMMARY | 2022-05-24 11:56 | XMS_ITS | Encounter Summary ---
:1950 Author Organization [place] Address [address] [place] [address] Care Team Providers Name Role Phone Toña Jones MD Primary Care Provider Ingrid Santana RN Unavailable Unavailable Encounter Details Date Type Department Care Team Description 10/11/2012 Results Only LABORATORY RESULTS Barbara Bradley MD [address] [place], [place] [address] Social History Tobacco Use [...] HLA Lukasz Class I Single Antigen (10/11/2012) [facility] Method Time Signature SA1 Test Single [...] / Volume Laterality 10/11/2012 10/12/2012 1:03 PM COOLING TOWER TECHNICIAN Barbara Bradley MD LAB - IMMUNOLOGY ORDERABLES Performing Organization Address City/State/ZIP Code Phon e Number [facility] Immunology/Histocompatabil [place], [place] [address] ity [facility] [address] [facility] [address] Building, Room 3-580 HISTOTRAC documented in this encounter Visit Diagnoses Not on filedocumented in this encounter Care Teams Machinist Bench Relationship Specialty Start Date End Date Toña Jones MD PCP - General Nephrology 11/25/11 01/01/14 Ingrid Santana RN Registered Nurse Transplant 02/10/12 documented as of this encounter
--- OUTSIDE RECORDS SUMMARY | 2022-05-24 11:56 | XMS_ITS | Encounter Summary ---
:1950 Author Organization [place] Address [address] [place] [address]. [place] [address] Care Team Providers Name Role Phone Toña [...] on filedocumented in this encounter Care Teams Matrix Bath Attendant Relationship Specialty Start Date End Date Toña Jones MD PCP - General Nephrology 11/25/11 01/01/14 Momo Forbes PCP - General Family Practice 01/02/14 [facility] [address] [place] [address] Ingrid Santana, RN Registered Nurse Transplant 02/10/12 documented as of this encounter
--- OUTSIDE RECORDS SUMMARY | 2022-05-24 11:56 | XMS_ITS | Encounter Summary ---
:1950 Author Organization [place] Address [address] [place] [address] Care Team Providers Name Role Phone Toña Jones MD Primary Care Provider Ingrid Santana RN Unavailable Unavailable Encounter Details Date Type Department Care Team Description 02/28/2013 Orders Only [facility] Molly Sanderson Organ transplant 500 [facility] candidate (Primary [place]x) [place] [phone] Social History Tobacco Use Types Packs/Day Years [...] status documented in this encounter Care Teams Disability Counselor Relationship Specialty Start Date End Date Toña Jones MD PCP - General Nephrology 11/25/11 01/01/14 Ingrid Santana RN Registered Nurse Transplant 02/10/12 documented as of this encounter
--- OUTSIDE RECORDS SUMMARY | 2022-05-24 11:56 | XMS_ITS | Encounter Summary ---
:1950 Author Organization [place] Address [facility] [place] [address] Care Team Providers Name Role Phone Ingrid Santana RN Unavailable Unavailable Momo Forbes Primary Care Provider Reason for Visit Reason Onset Date Comments Pre Visit Planning - Done 01/30/2014 EKG: pre op: [age] yo M, here for continued clearance for possib le kidney txp. Encounter Details Date Type Department Care Team Description 01/30/[address] [facility] Barbara Bradley Pre Visit Planning - Physicians Orestes Licona MD Done (EKG: pre op: 63 [address] [place], [place] [address] continued clearance 4th Floor, Clinic 4B for possible kidney [facility] [address] txp.) [address] [place] [phone] Social History Tobacco Use Types Packs/Day Years [...] On HD since Aug 2011. No past [place], stress tests or coronary angiogorams. No chest [...] disease documented in this encounter Care Teams Space Systems Operations Craftsman Relationship Specialty Start Date End Date Momo Forbes PCP - General Family Practice 01/02/14 [facility] [address] [place] [address] Ingrid Santana, RN Registered Nurse Transplant 02/10/12 documented as of this encounter
--- OUTSIDE RECORDS SUMMARY | 2022-05-24 11:56 | XMS_ITS | Encounter Summary ---
:1950 Author Organization [place] Address [facility] [place] [address] Care Team Providers Name Role Phone Toña Jones MD Primary Care Provider Ingrid Santana RN Unavailable Unavailable Reason for Visit Reason Onset Date Comments Transplant 12/19/2013 Kidney waitlist appo intments Encounter Details Date Type Department Care Team Description 12/19/2013 Telephone The Transplant [facility], Provider Transplant (Kidney 2nd Floor, Clinic 2A waitlist appointments) Tommy Ru[address] [phone] Social History Tobacco Use Types Packs/Day Years [...] filedocumented in this encounter Care Teams Air Launch Weapons Technician Relationship Specialty Start Date End Date Toña Jones MD PCP - General Nephrology 11/25/11 01/01/14 Ingrid Santana, RN Registered Nurse Transplant 02/10/12 documented as of this encounter
--- OUTSIDE RECORDS SUMMARY | 2022-05-24 11:56 | XMS_ITS | Encounter Summary ---
:1950 Author Organization [place] Address [address] [place] [address] Care Team Providers Name Role Phone Ingrid Santana RN Unavailable Unavailable Momo Forbes Primary Care Provider Encounter Details Date Type Department Care Team Description 01/21/2014 Results Only LABORATORY RESULTS Mingo Dangelo MD 420 [facility] 195 [place] [address] (Wo rk) Social History Tobacco [...] HLA Lukasz Class II Single Antigen (01/21/2014) [facility] gist Method Time Signature SA2 Test SA [...] Phon e Number [facility] Immunology/Histocompatabil [place], [place] [address] ity [facility] [address] [facility] [address] Building, Room 3-580 HISTOTRAC documented in this encounter Visit Diagnoses Not on filedocumented in this encounter Care Teams Lead Level Designer Relationship Specialty Start Date End Date Momo Forbes PCP - General Family Practice 01/02/14 [facility] [address] [place], [place] [id number] Ingrid Santana, RN Registered Nurse Transplant 02/10/12 documented as of this encounter
--- OUTSIDE RECORDS SUMMARY | 2022-05-24 11:56 | XMS_ITS | Encounter Summary ---
:1950 Author Organization [place] Address [address] [place] [address] Care Team Providers Name Role Phone Ingrid Santana RN Unavailable Unavailable Momo Forbes Primary Care Provider Encounter Details Date Type Department Care Team Description 01/20/2014 Orders Only [facility], Joseph Conor [facility], [facility] [address] [phone] [place] [address] [address] [place] [address] (Wo rk) Social History Tobacco [...] Results Tacrolimus level (02/15/2014 8:55 AM CDT) [facility] Method Time Signature Tacrolimus Last 02/14/2014 [facility] Dose 2030 [facility] Tacrolimus 5.9 5.0 - [facility] Level 15.0 ug/L [facility] Comment: Tacrolimus Reference Range Kidney [...] Phon e Number [facility] 500 [place] [address] [facility] documented in this encounter Visit Diagnoses Not on filedocumented in this encounter Care Teams Hub Borer Relationship Specialty Start Date End Date Momo Forbes PCP - General Family Practice 01/02/14 [facility] [address] [place] [address] Ingrid Santana, RN Registered Nurse Transplant 02/10/12 documented as of this encounter
--- OUTSIDE RECORDS SUMMARY | 2022-05-24 11:56 | XMS_ITS | Encounter Summary ---
:1950 Author Organization [place] Address [address] [place] [address]. [place] [address] Care Team Providers Name Role Phone Toña [...] on filedocumented in this encounter Care Teams Meal Cooker Relationship Specialty Start Date End Date Toña Jones MD PCP - General Nephrology 11/25/11 01/01/14 Momo Forbes PCP - General Family Practice 01/02/14 [facility] [address] [place] [address] Ingrid Santana, RN Registered Nurse Transplant 02/10/12 documented as of this encounter
--- OUTSIDE RECORDS SUMMARY | 2022-05-24 11:56 | XMS_ITS | Encounter Summary ---
:1950 Author Organization [place] Address [address] [place] [address] Care Team Providers Name Role Phone Toña [...] HLA Lukasz Class I Single Antigen (04/16/2013) [facility] gist Method Time Signature SA1 Test [...] Phon e Number [facility] Immunology/Histocompatabil [place], [place] [address] ity [facility] 500 [facility] [address] Building, Room 3-580 HISTOTRAC documented in this encounter Visit Diagnoses Not on filedocumented in this encounter Care Teams Milk Collector Relationship Specialty Start Date End Date Toña Jones MD PCP - General Nephrology 11/25/11 01/01/14 Ingrid Santana RN Registered Nurse Transplant 02/10/12 documented as of this encounter
--- OUTSIDE RECORDS SUMMARY | 2022-05-24 11:56 | XMS_ITS | Encounter Summary ---
:1950 Author Organization [place] Address [address] [place] [address] Care Team Providers Name Role Phone Toña Jones MD Primary Care Provider Ingrid Santana RN Unavailable Unavailable Encounter Details Date Type Department Care Team Description 10/11/2012 Results Only LABORATORY RESULTS Barbara Bradley MD [address] [place], [place] [address] Social History Tobacco Use [...] HLA Lukasz Class II Single Antigen (10/11/2012) [facility] Method Time Signature SA2 Test [...] / Volume Laterality 10/11/2012 10/12/2012 1:03 PM MARKETING REGIONAL CONSULTANT Barbara Bradley MD LAB - IMMUNOLOGY ORDERABLES Performing Organization Address City/State/ZIP Code Phon e Number [facility] Immunology/Histocompatabil [place] [address] ity [facility] [address] Building, Room 3-580 HISTOTRAC documented in this encounter Visit Diagnoses Not on filedocumented in this encounter Care Teams Shank Taper Relationship Specialty Start Date End Date Toña Jones MD PCP - General Nephrology 11/25/11 01/01/14 Ingrid Santana RN Registered Nurse Transplant 02/10/12 documented as of this encounter
--- OUTSIDE RECORDS SUMMARY | 2022-05-24 11:56 | XMS_ITS | Encounter Summary ---
:1950 Author Organization [place] Address [address] [place] [address] Care Team Providers Name Role Phone Toña Jones MD Primary Care Provider Ingrid Santana RN Unavailable Unavailable Encounter Details Date Type Department Care Team Description 07/30/2013 Results Only LABORATORY RESULTS Mingo Dangelo MD 420 [facility] 195 [place] [address] (Wo rk) Social History Tobacco [...] HLA Lukasz Class I Single Antigen (07/30/2013) [facility] gist Method Time Signature SA1 Test [...] / Volume Laterality 07/30/2013 07/31/2013 2:10 PM BODY ROLLING MACHINE TENDER Mingo Dangelo MD LAB - IMMUNOLOGY ORDERABLES Performing Organization Address City/State/ZIP Code Phon e Number [facility] Immunology/Histocompatabil [place], [place] [address] ity [facility] [address] Building, Room 3-580 HISTOTRAC documented in this encounter Visit Diagnoses Not on filedocumented in this encounter Care Teams Ems Instructor Relationship Specialty Start Date End Date Toña Jones MD PCP - General Nephrology 11/25/11 01/01/14 Ingrid Santana RN Registered Nurse Transplant 02/10/12 documented as of this encounter
--- OUTSIDE RECORDS SUMMARY | 2022-05-24 11:56 | XMS_ITS | Encounter Summary ---
:1950 Author Organization [place] Address [address] [place] [address]. [place] [address] Care Team Providers Name Role Phone Toña [...] filedocumented in this encounter Care Teams Lead Coater Relationship Specialty Start Date End Date Toña Jones MD PCP - General Nephrology 11/25/11 01/01/14 Momo Forbes PCP - General Family Practice 01/02/14 [facility] [address] [place] [address] Ingrid Santana, RN Registered Nurse Transplant 02/10/12 documented as of this encounter
--- OUTSIDE RECORDS SUMMARY | 2022-05-24 11:56 | XMS_ITS | Encounter Summary ---
:1950 Author Organization [place] Address [facility] [place] [address] Care Team Providers Name Role Phone Toña [...] HLA Lukasz Class II Single Antigen (04/16/2013) [facility] Method Time Signature SA2 Test Single [...] Phon e Number [facility] Immunology/Histocompatabil [place], [place] [address] ity [facility] [address] [facility] [address] Building, Room 3-580 HISTOTRAC documented in this encounter Visit Diagnoses Not on filedocumented in this encounter Care Teams Terra Cotta Setter Relationship Specialty Start Date End Date Toña Jones MD PCP - General Nephrology 11/25/11 01/01/14 Ingrid Santana, RN Registered Nurse Transplant 02/10/12 documented as of this encounter
--- OUTSIDE RECORDS SUMMARY | 2022-05-24 11:56 | XMS_ITS | Encounter Summary ---
:1950 Author Organization [place] Address [address] [place] [address] Care Team Providers Name Role Phone Toña Jones MD Primary Care Provider Ingrid Santana RN Unavailable Unavailable Encounter Details Date Type Department Care Team Description 11/05/2013 Results Only LABORATORY RESULTS Barbara Bradley MD [address] [place], [place] [address] Social History Tobacco Use [...] II Single Antigen (11/05/2013 7:20 AM CDT) [facility] Method Time Signature SA2 Test SA [...] Phon e Number [facility] Immunology/Histocompatabil [place], [place] [address] ity [facility] [address] Building, Room 3-580 HISTOTRAC documented in this encounter Visit Diagnoses Not on filedocumented in this encounter Care Teams Him Analyst Relationship Specialty Start Date End Date Toña Jones MD PCP - General Nephrology 11/25/11 01/01/14 Ingrid Santana RN Registered Nurse Transplant 02/10/12 documented as of this encounter
--- OUTSIDE RECORDS SUMMARY | 2022-05-24 11:56 | XMS_ITS | Encounter Summary ---
:1950 Author Organization [facility] Address [address] [place] [address] Care Team Providers Name Role Phone Ingird Santana RN Unavailable Unavailable Momo Forbes Primary Care Provider Reason for Visit Auth/Cert - Closed Specialty Diagnoses / Procedures Referred By Contact Refer red To Contact Med Surg Diagnoses end stage renal disease dialysis End stage renal failure on dialysis Renal Failure Uu U7a Procedures TRANSPLANT KIDNEY RECIPIENT DONOR [address] [place] [address] Phone: Referral ID Status Reason Start Date Expiration Date Visits Requ ested Visits Authorized [id number] Closed 02/04/2014 08/03/2014 1 1 Encounter Details Date Type Department Care Team Description 02/02/2014 Surgery [facility] Migel Merchant , Kidney Transplant , PeriOp Services ureteral stent [address] [place] [address] [place] [address] [place], [place] [id number] (Wo rk) Surgery Details Date/Time Status Location [...] Physician Discharge Summary Patient ID: Diego Guthrie [id number] 63 year old 1950 Admit date: 02/02/2014 [...] Take 1 tablet by mouth daily. B parpsrz-Q-nfmey acid (NEPHROCAPS) 1 MG capsule Take 1 [...] located on the second floor of the [facility] next to the Transplant Clinic. [...] of these appointments you will meetwith a air brush artist and meet your medical staff credentialing coordinator. Your nurse will also be in communication with your surgeon and air brush artist as needed. The direct number to the [facility] is [phone]. In the [facility] [...] the hospital. This will be located in [facility] transplant surgery clinic on the second floor.Your transplant surgeon is: Dr. Merchant. You have a ureteral stent in place which needs to be removed in 4-6 weeks. If a buckle stringer does not contact you for this, please contact your medical staff credentialing coordinator. If you have modesta in place, they will be removed in 3 weeks after operation. Notify your coordinator if you have pain over your kidney, fever greater than 101.5F, or decreased urine output. Notify your coordinator immediately if you are ever unable to take your immunosuppressive medications for any reason. 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 High protein [...] >2. He can be seen by any grinder hand in the outpatient setting for coordination. Continue metoprolol 25 po bid until he is r e-evaluated. We did attempt inpatient REFUGIO guided cardioversion, but the patient developed significant bleeding while on heparin. José Miguel Alvarez M.D. Sewing Teacher Joseph Quintana MD - 02/08/2014 12:35 PM [...] Dr. Quintana. Sina Robison MD Nephrology Fellow [phone] Attestation: This patient has been seen and [...] Ramires RN - 02/07/2014 2:25 PM CDT Materials Manager D: Diego Guthrie 63 year old male POD #5 s/p DDKT for ESRD 2/[address] Diaz note today. Per Dr Diaz, pt will most likely be ready for d/c to home tomorrow and will return to [facility] for 5 days at 0700. Pt [...] him. Pt does not know where the [facility] or transplant clinic is, I told him and he replied I will find it. Pt does not care which N agency will follow him--There are only 2 to choose from, so [facility] [phone][facility] --I called and left a message with Estrella Fletcher and I fax'd his records tothem--pt will need start of care approx Thursday 02/15. Pt is new on warfarin and I called his PCP's office and they have INR nurses Tuesday-Tuesday their fax # is [phone] (when HHN visits are completed --pt will call main clinic # to schedule INR draws). 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 I verified his address and phone #(is his cell) on the facesheet. Pt has not met his OP hearing care practitioner: Leandro Kahn, yet--I sent Leandro an in basket message today-with plan. A: possible d/c to home Tuesday P: see above-will follow and will call [facility] to confirm they can accept [...] Dr. Quintana. Sina Robison MD Nephrology Fellow [phone] Attestation: This patient has been seen and [...] assistance Medical Decision Making: Medium Subsequent visit 03431 (moderate level decision making) PATO/Fellow/Resident Provider: Adeline [...] Rodriguez MD - 02/06/2014 4:25 PM CDT [facility] Cardiology Progress Note I have seen [...] Dr. Quintana. Sina Robison MD Nephrology Fellow [phone] Attestation: This patient has been seen and [...] Dr. Quintana. Sina Robison MD Nephrology Fellow [phone] Attestation: This patient has been seen and [...] REPLACEMENT ONLY ??? insulin (regular) Stopped (02/05/14 1687) Shiva Kahn RN - 02/05/2014 4:47 PM CDT FEATURES EDITOR NOTE I met with the patient and his yesterday at [facility] PCU-6B (telemetry unit) to discuss transition from inpatient to outpatient care following kidney translantation. 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 He has slow graft function; however, his [...] the plan for daily visits to the [facility] for 5 days after discharge followed [...] meet with the patient again in the [facility] following discharge from [facility]. Joseph Rodriguez MD - 02/05/2014 11:16 AM CDT [facility] Cardiology Progress Note I have seen [...] plan for REFUGIO cardioversion tomorrow, NPO at [facility] (orders placed) -- continue heparin and initiate [...] 02/02/2014. Pt lives alone in [place] though reports that his girlfriend in in the process of moving in with him. Pt girlfriend, Tete, will be present when pt returns home but she works horse race timer. Pt was on dialysis for 2 1/2 years prior to transplant. Pt works independently but reports that he currently has no income coming in. Pt has primary insurancethrough Medicare and Secondary insurance through [employer]. Pt has no co-pays for his immunosuppressants and a high out of pocket cost for Valcyte, SW to look into grants for pt for Valcyte. I: Met with pt to introduce this mortgage or loan underwriter and explain sw role and services available while inpatient in the hospital. Asked if pt had any questions or concerns and completed an assessment of psychosocialneeds post transplant. Provided education about expectations and requirements post discharge like fol low up in the [facility]. Pt is unsure yet if he [...] needs arise prior to discharge. Roopa Castro, COMMERCIAL LOAN PROCESSOR, MEDICAL STAFF CREDENTIALING COORDINATOR Indu Calixto MD - 02/05/2014 1:50 AM [...] Adds Type of Visit Initial PT Evaluation Training Project Manager Training Project Manager Present no Language Hungarian Living Environment (R) Lives With alone Living Arrangements ([facility]) Home Accessibility no concerns Number of [...] up when pt is available. CECY Kearns, MEDICAL STAFF CREDENTIALING COORDINATOR [phone] phone [phone] pager Joseph Quintana MD - 02/04/2014 11:51 [...] Dr. Quintana. Sina Robison MD Nephrology Fellow [phone] Attestation: This patient has been seen and [...] for this basename: PTHI, in the last 22912 hours IRON STUDIES No results found for this basename: IRON, FEB, IRONSAT, THEE, in the last 35441 hours Imaging: All imaging studies reviewed by [...] or equal to 12.0 mlU/mL. Adeline Emily [phone] Attestation: The patient has been seen and [...] donor kidney transplant, with stent on 02/02/14. POSTMASTER donor. Graft function:uncertain, Cr slightly up. Slow [...] . Medical Decision Making: Medium Subsequent visit 23657 (moderate level decision making) PATO/Fellow/Resident Provider: Caitlin [...] note and orders. Migel Merchant MD, PhD equipment validation engineer Abdominal Organ Transplantation Carmelita Rosario RN - 02/03/2014 9:38 AM CDT Patient removed from the UNOS waitlist after donor kidney transplant. UNOS ID is [id number]. Rafaela Cardona - 02/03/2014 9:17 AM CDT [...] followed general diet. Patient reports good appetite/intake OPERATING ROOM RN, no nutrition issues/concnerns. CURRENT NUTRITION ORDERS - [...] DDKT ASSESSED NUTRITION NEEDS: Estimated Energy Needs: 0192-9660+ kcals (25-30+ Kcal/Kg) Justification: maintenance post-transplant Estimated [...] (6- 8 weeks). Rec follow heart-healthy diet chcf. Implementation Nutrition education: Provided instruction on post-transplant diet with discussion regarding protein sources and high protein needs in acute post-tx phase. Reviewed recommendations to follow low fat/lowsodium diet chcf and discussed heart healthy diet tips. Discussed [...] adjustment. Rafaela Cardona RD, LD Weekend Coverage [phone] Jose Aguirre MD - 02/03/2014 4:57 AM [...] Doing well postoperatively. Pain: Controlled by Dilaudid SHEATHER Diet: NPO tonight Volume Status: Borderline low UOP, continue MIVF, 0.9 % NS 500 cc bolus given for low UOP, CVP not accurate, systolic in 100-110 Recheck hemoglobin and potassium normal. Rest of the plan per primary team. Will continue to follow. Jose Aguirre MD PGY-1.................02/03/2014 Surgery Cross Cover Pager:[phone] documented in this encounter H&P Notes Caitlin [...] 1 tablet by mouth daily. ??? B dosdzlf-G-kxtrp acid (NEPHROCAPS) 1 MG capsule Take 1 [...] Transplant Fellow, Caitlin Morales MD Surgery Cross-Cover Pager:[phone] Addendum: Donor 59 yo F POSTMASTER, CVA, h/o HTN, CMV+, EBV+. Kidney bx [...] note and orders. Migel Merchant MD, PhD equipment validation engineer Abdominal Organ Transplantation documented in this encounter Consult Notes Joseph Rodriguez MD - 02/04/2014 11:03 AM CDTAssociated Order(s): CARDIOLOGY IP CONSULT [facility] CARDIOLOGY CONSULT SERVICE INITIAL CONSULT NOTE February [...] 1 tablet by mouth daily. ??? B upxzrqa-V-ovvjb acid (NEPHROCAPS) 1 MG capsule Take 1 [...] basename: TSH, in the last 168 hours OkyQ2zFs components found with this basename: HGBA1C, TroponinNo results found for this basename: TROPONIN, in the last 168 hours EKG: a-fib, no st changes, rate controlled reviewed ECHO: repeat pending MO 01/2016 Normal study. 2. There is no [...] assessment and plan. José Miguel Alvarez MD Sewing Teacher Pager: [phone] February 04, 2014 Kaitlynn Leon MD - 02/03/2014 9:30 AM CDT Nephrology Initial Consult February 03, 2014 Diego Guthrie Date of : 1950 Date of Admission:02/02/2014 Primary care provider: Momo Forbes Requesting physician: Migel Merchant MD ASSESSMENT AND RECOMMENDATIONS: 1. 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 We will monitor Induction with Thymo/Cellcept and [...] h/o type 2 Dm, who received DDKT (POSTMASTER) on 02/02/2014 donor kidney had severe atherosclerotic [...] ??? Cataract iol, rt/lt both eyes MEDICATIONS: OPERATING ROOM RN Meds Prior to Admission medications Medication Sig Last Dose Taking? Auth Provider Calcium Carbonate-Vitamin D (CALCIUM + D PO) Take by mouth daily. Reported, Patient lisinopril (PRINIVIL,ZESTRIL) 40 MG tablet Take 40 mg by mouth 2 times daily. Reported, Patient METOPROLOL SUCCINATE PO Take by mouth daily. Reported, Patient aspirin 81 MG tablet Take 1 tablet by mouth daily. Reported, Patient B bfokypz-M-orwyi acid (NEPHROCAPS) 1 MG capsule Take 1 [...] Intravenous Central line Once ??? HYDROmorphone Intravenous SHEATHER Infusion Meds ??? IV fluid REPLACEMENT ONLY [...] Date 02/03/14 0700 - 02/04/14 0659 Shift [phone] [phone] 24 Hour Total I N T A [...] for this basename: PTHI, in the last 96202 hours IRON STUDIES No results found for this basename: IRON, FEB, IRONSAT, THEE, in the last 18527 hours Deysi Alicea MD Jarad Cullen MD [...] tablet by mouth daily. Reported, Patient B vwvkqnt-X-cneos acid (NEPHROCAPS) 1 MG capsule Take 1 [...] and plan. Alvin Diego Cardiovascular Disease Fellow [phone] Patient seen and examined by me with [...] Cullen MD, PhD Jarad Cullen MD, PhD [phone] documented in this encounter Nursing Notes Gretta [...] Individualization/Patient-Specific Goal (Adult,OB,Behavioral The patient and/or their billing representative will achieve their patient-specific goals related [...] Card updated. Report called to Saima in [facility]. Left facility accompanied by s.o at 1600. Plan of Care - Amanda Hernandez RN - 02/08/2014 2:13 PM CDT Problem: IP GENERAL POC-ADULT,OB,BEHAVIORAL FVCPM Goal: Individualization/Patient-Specific Goal (Adult,OB,Behavioral The patient and/or their billing representative will achieve their patient-specific goals related [...] Individualization/Patient-Specific Goal (Adult,OB,Behavioral The patient and/or their billing representative will achieve their patient-specific goals related [...] Individualization/Patient-Specific Goal (Adult,OB,Behavioral The patient and/or their billing representative will achieve their patient-specific goals related [...] Diet recommendations post-transplant: Heart healthy dietary habits chcf (low saturated/trans fat, low sodium). High protein diet x 8 weeks. Practice food safety precautions - no fish/seafood x 3 weeks. Inez Luevano MS, RD, LD Pager [phone] Pharmacy-Immunosuppression Monitoring - Em Vasquez RPH - [...] will continue to follow. Em Vasquez, Pharm.D., [facility] Pager [phone] Plan of Care - Annmarie Colby RN - 02/07/2014 5:11 AM CDT Problem: IP GENERAL POC-ADULT,OB,BEHAVIORAL FVCPM Goal: Individualization/Patient-Specific Goal (Adult,OB,Behavioral The patient and/or their billing representative will achieve their patient-specific goals related [...] Individualization/Patient-Specific Goal (Adult,OB,Behavioral The patient and/or their billing representative will achieve their patient-specific goals related [...] increased fluid intake, urine color is becoming top precipitator operator( tea color/bloody- >dark sy/tea color). Incisional [...] Physical Therapy Goals The patient and/or their billing representative will achieve their patient-specific goals related [...] Physical Therapy Goals The patient and/or their billing representative will achieve their patient-specific goals related [...] Individualization/Patient-Specific Goal (Adult,OB,Behavioral The patient and/or their billing representative will achieve their patient-specific goals related [...] Individualization/Patient-Specific Goal (Adult,OB,Behavioral The patient and/or their billing representative will achieve their patient-specific goals related [...] Physical Therapy Goals The patient and/or their billing representative will achieve their patient-specific goals related [...] at this time. Pharmacy - Cayetano Olivera, [facility] - 02/05/2014 12:26 PM CDT Visited 02/05/2014 in hospital room prior to discharge to review medications, review discharge process and review specialty pharmacy program. Med Review: Reviewed patient's medications and medical conditions. Patient would like to use [facility] to manage all medications. Medcard: [...] Specialty Pharmacy review: Discussed the benefits of [facility] and Diego has enrolled. Also gave him supplies (blood pressure cuff, thermometer, and pill box) Other concerns: No other concerns at this time. No further questions for this pharmacist. Inez Cox, Student Pharmacist Physical Education Professor [facility] [address] [place] [id number] Cayetano Olivera, Pharmacist [facility] [phone] Pharmacy-Anticoagulation Service - Teresa Wright [facility] - 02/05/2014 11:29 AM CDT [...] Individualization/Patient-Specific Goal (Adult,OB,Behavioral The patient and/or their billing representative will achieve their patient-specific goals related [...] melonie hard time making full sentences. When mortgage or loan underwriter came on shift at 8pm patient [...] Individualization/Patient-Specific Goal (Adult,OB,Behavioral The patient and/or their billing representative will achieve their patient-specific goals related [...] Physical Therapy Goals The patient and/or their billing representative will achieve their patient-specific goals related [...] by friend. Pt transferred to chair, VSS, kaiawhina kohanga reo on, oriented to room. Pharmacy-Admission Medication History - Adriana Teresa Whitney, [facility] - 02/04/2014 11:54 AM CDT Admission medication history interview status for the 02/02/2014 admission is complete. See [facility] admission navigator for allergy information, prior to admission medications and immunization status. Medication history interview sources (including written lists, pill bottles, clinic record):Patient Medication history source reliability:Good Primary pharmacy:[facility] phone number: [phone] Changes made to OPERATING ROOM RN medication list (reason) Added: Vitamin D 1,000 [...] at Unknown time Yes Reported, Patient B qoamyvx-J-crmfz acid (NEPHROCAPS) 1 MG capsule Take 1 [...] Individualization/Patient-Specific Goal (Adult,OB,Behavioral The patient and/or their billing representative will achieve their patient-specific goals related [...] 45 minutes and remains in A-fib via miner assistant. Repeat EKG around 1000 showed continued Afibl. [...] Physical Therapy Goals The patient and/or their billing representative will achieve their patient-specific goals related to the plan of care. The patient-specific goals include: PT 7A: HOLD for AM per RN - pt with a-fib this morning. Plan of Care - Alisson Diane RN - 02/04/2014 6:45 AM CDT Problem: IP GENERAL POC-ADULT,OB,BEHAVIORAL FVCPM Goal: Individualization/Patient-Specific Goal (Adult,OB,Behavioral The patient and/or their billing representative will achieve their patient-specific goals related [...] Individualization/Patient-Specific Goal (Adult,OB,Behavioral The patient and/or their billing representative will achieve their patient-specific goals related [...] to yellow. Pharmacy-Transplant Note - Davina Schuster [facility] - 02/03/2014 4:28 PM CDT [...] Individualization/Patient-Specific Goal (Adult,OB,Behavioral The patient and/or their billing representative will achieve their patient-specific goals related to the plan of care. The patient-specific goals include: 1. Pt will remain hemodynamically stable 2. Pt will have adequate urine output 3. Pt will be free of falls. RD Patient will verbalize understanding of 3 important aspects of post-transplant diet guidelines. PO intake >50% meals TID once diet adv. Report taken from [facility] on 6B; patient transferred to from 6B via wheelchair around 1500. Patientsettled into room, oriented to floor/room and call light. VS taken. Orders released. Continue ordersas written and notify MD with any concerns. Plan of Care - Sofie Christianson RN - 02/03/2014 2:59 PM CDT Problem: IP GENERAL POC-ADULT,OB,BEHAVIORAL FVCPM Goal: Plan of Care Review (Adult,OB,Behavioral) The patient and/or their billing representative will communicate an understanding of their [...] algorithm 2, 1 unit now. Pt still bfpzbzgbj5C NC to maintain sats above 90 % [...] Individualization/Patient-Specific Goal (Adult,OB,Behavioral The patient and/or their billing representative will achieve their patient-specific goals related [...] Intermittent sharp R lower abd pain. Dilaudid SHEATHER encouraged, increased to 0.2/10/1.2. R lower abd [...] 0200 made 20cc/hr, at 0300 made 30cc/hr. Harrell/red tinged urine. MIVF @ 125/hr. VSS. HR 70s, BPs 100s-120s/60s. No new orders at this time. Will continue to monitor. Plan of Care - Tasia Andrade, BOGDAN - 02/03/2014 12:00 AM CDT Pt arrived to 6B from PACU, s/p DDKT. A&O x3-4. VSS. Harrell/red urine output. Small amt drainage on abd [...] Diabetes. The patient received [facility] offer for a Donor POSTMASTER (expanded criteria donor) kidney transplant. After discussing [...] The UNOS number of the donor is [id number]. The crossmatch was done prospectively; and the [...] reconstruction. FACULTY SURGEON: Migel Merchant M.D., Ph.D. FELLOW/REMOTE SENSING ADVISOR SURGEON: Caitlin Owens MD fellow ANESTHESIA: None VERIFICATION: Prior to incision, I verified the donor ABO and recipient ABO. After the donor organ arrived to the operating room and prior to anastamosis, I visually verified that the donor identification, blood type, and other vital data were compatible with the recipient. FINDINGS: Donor type: POSTMASTER (expanded criteria donor) Organ: kidney Graft Injury: [...] Individualization/Patient-Specific Goal (Adult,OB,Behavioral The patient and/or their billing representative will achieve their patient-specific goals related [...] Individualization/Patient-Specific Goal (Adult,OB,Behavioral The patient and/or their billing representative will achieve their patient-specific goals related [...] Signature Tacrolimus Not Provided [facility] Last Dose [facility] Tacrolimus 10.0 5.0 - [facility] Level 15.0 ug/L [facility] Comment: Tacrolimus Reference [...] LAB - BLOOD ORDERABLES Performing Organization Address City/[facility]/ZIP Code Phon e Number [address] LABS (ABNORMAL) INR (02/08/2014 6:42 AM CDT) P athologist Signature INR 1.28 (H) 0.86 - 1.14 [facility] Specimen Anatomical Collection Method Collection Time Receive d Time (Source) Location / / Volume Laterality Blood specimen 02/08/2014 6:42 AM 014 6:43 (specimen) CDT AM CDT Omaira Chavez PA-C LAB - BLOOD ORDERABLES Performing Organization Address City/State/ZIP Code Phon e Number [address] LABS (ABNORMAL) Basic metabolic panel (02/08/2014 6:42 AM CDT) Patholo gist Method Time Signature Sodium 144 133 - 144 [facility] mmol/L [facility] Potassium 3.9 3.4 - 5.3 [facility] mmol/L [facility] Chloride 110 (H) 94 - 109 [facility] mmol/L [facility] Carbon Dioxide 25 20 - 32 [facility] mmol/L [facility] Anion Gap 8 6 - 17 [facility] mmol/L [facility] Glucose 144 (H) 60 - 99 [facility] mg/dL [facility] Urea Nitrogen 66 (H) 7 - 30 [facility] mg/dL [facility] Creatinine 2.38 (H) 0.66 - [facility] 1.25 mg/dL [facility] GFR Estimate 28 (L) >60 [facility] mL/min/1.7 [place] m2 [place] [facility] GFR Estimate If 34 (L) >60 [facility] Black mL/min/1.7 [place] m2 [facility] LABS Calcium 9.4 8.5 - 10.4 [facility] mg/dL [facility] Specimen Anatomical Collection Method Collection Time Receive d Time (Source) Location / / Volume Laterality Blood specimen 02/08/2014 6:42 AM 014 6:43 (specimen) CDT AM CDT Omaira Chavez PA-C LAB - BLOOD ORDERABLES Performing Organization Address City/State/ZIP Code Phon e Number [facility] [address] LABS Phosphorus (02/08/2014 6:42 AM CDT) P athologist Signature Phosphorus 2.5 2.5 - 4.5 [facility] mg/dL [place] LAB[facility] Specimen Anatomical Collection Method Collection Time Receive d Time (Source) Location / / Volume Laterality Blood specimen 02/08/2014 6:42 AM 014 6:43 (specimen) CDT AM CDT Omaira Chavez PA-C LAB - BLOOD ORDERABLES Performing Organization Address City/State/ZIP Code Phon e Number [facility] [address] LABS Magnesium (02/08/2014 6:42 AM CDT) P athologist Signature Magnesium 2.2 1.6 - 2.3 [facility] mg/dL [place] LABS Specimen Anatomical Collection Method Collection Time Receive d Time (Source) Location / / Volume Laterality Blood specimen 02/08/2014 6:42 AM 014 6:43 (specimen) CDT AM CDT Omaira Chavez PA-C LAB - BLOOD ORDERABLES Performing Organization Address City/State/ZIP Code Phon e Number [facility] [address] LABS (ABNORMAL) CBC with platelets differential (02/08/2014 6:42 AM CDT) Patholo gist Method Time Signature WBC 4.8 4.0 - [facility] 11.0 [place] 10e9/L [place] LABS RBC Count 2.56 (L) 4.4 - 5.9 [facility] 10e12/L [facility] LABS Hemoglobin 7.8 (L) 13.3 - [facility] 17.7 g/dL [facility] LABS Hematocrit 23.5 (L) 40.0 - [facility] 53.0 % [facility] LABS MCV 92 78 - 100 [facility] fl [facility] LABS MCH 30.5 26.5 - [facility] 33.0 pg [facility] LABS MCHC 33.2 31.5 - [facility] 36.5 g/dL [facility] LABS RDW 14.5 10.0 - [facility] 15.0 % [facility] LABS Platelet Count 70 (L) 150 - 450 [facility] 10e9/L [facility] LABS Diff Method Automated [facility] Method [facility] LABS % Neutrophils 86.3 % [facility] LABS % Lymphocytes 3.1 % [facility] LABS % Monocytes 9.4 % [facility] LABS % Eosinophils 1.0 % [facility] % Basophils 0.0 % [facility] % Immature 0.2 % [facility] Granulocytes [facility] LABS Absolute 4.1 1.6 - 8.3 [facility] Neutrophil 10e9/L [facility] LABS Absolute 0.2 (L) 0.8 - 5.3 [facility] Lymphocytes 10e9/L [facility] LABS Absolute 0.5 0.0 - 1.3 [facility] Monocytes 10e9/L [facility] LABS Absolute 0.1 0.0 - 0.7 [facility] Eosinophils 10e9/L [facility] LABS Absolute 0.0 0.0 - 0.2 [facility] Basophils 10e9/L [facility] LABS Abs Immature 0.0 0 - 0.4 [facility] Granulocytes 10e9/L [facility] LABS Specimen Anatomical Collection Method Collection Time Receive d Time (Source) Location / / Volume Laterality Blood specimen 02/08/2014 6:42 AM 014 6:43 (specimen) CDT AM CDT Omaira Chavez PA-C LAB - BLOOD ORDERABLES Performing Organization Address City/State/ZIP Code Phon e Number [address] [address] [facility] LABS (ABNORMAL) Glucose by meter (02/07/2014 10:18 PM CDT) P athologist Signature Glucose 233 (H) 60 - 99 POINT OF CARE mg/dL TEST, GLUCOSE Specimen Anatomical Collection Method Collection Time Receive d Time (Source) Location / / Volume Laterality 02/07/2014 10:18 02/07/2014 PM CDT 10:20 PM CDT Migel Merchant MD LAB - BEAKER POCT Performing Organization Address City/[facility] Code Phon e Number FV POINT [...] LAB - BEAJ POCT Performing Organization Address [facility] Phon e Number FV POINT OF CARE [...] LAB - BEAKER POCT Performing Organization Address City/[facility] Code Phon e Number FV POINT [...] LAB - BEAJ POCT Performing Organization Address City/[facility] Phon e Number FV POINT OF CARE [...] Signature INR 1.25 (H) 0.86 - 1.14 [facility] LABS Specimen Anatomical Collection Method Collection Time Receive d Time (Source) Location / / Volume Laterality Blood specimen 02/07/2014 4:23 AM 014 4:24 (specimen) CDT AM CDT Omaira Chavez PA-C LAB - BLOOD ORDERABLES Performing Organization Address City/State/ZIP Code Phon e Number [id number] [place] [address] LABS (ABNORMAL) Basic metabolic panel (02/07/2014 4:23 AM CDT) [facility] Method Time Signature Sodium 143 133 - 144 [facility] mmol/L [facility] LABS Potassium 4.1 3.4 - 5.3 [facility] mmol/L [facility] LABS Chloride 109 94 - 109 [facility] mmol/L [facility] LABS Carbon Dioxide 24 20 - 32 [facility] mmol/L [facility] LABS Anion Gap 10 6 - 17 [facility] mmol/L [facility] LABS Glucose 185 (H) 60 - 99 [facility] mg/dL [facility] LABS Urea Nitrogen 77 (H) 7 - 30 [facility] mg/dL [facility] LABS Creatinine 3.02 (H) 0.66 - [facility] 1.25 mg/dL [facility] [place] LABS GFR Estimate 21 (L) >60 [facility] mL/min/1.7 [place] m2 CAMPUS LABS GFR Estimate If 26 (L) >60 [facility] Black mL/min/1.7 [place] m2 CAMPUS LABS Calcium 9.3 8.5 - 10.4 [facility] mg/dL [facility] LABS Specimen Anatomical Collection Method Collection Time Receive d Time (Source) Location / / Volume Laterality Blood specimen 02/07/2014 4:23 AM 014 4:24 (specimen) CDT AM CDT Omaira Chavez PA-C LAB - BLOOD ORDERABLES Performing Organization Address City/[facility]/ZIP Code Phon e Number [facility] [address] LABS Phosphorus (02/07/2014 4:23 AM CDT) P athologist Signature Phosphorus 3.5 2.5 - 4.5 [facility] mg/dL [place] LABS Specimen Anatomical Collection Method Collection Time Receive d Time (Source) Location / / Volume Laterality Blood specimen 02/07/2014 4:23 AM 014 4:24 (specimen) CDT AM CDT Omaira Chavez PA-C LAB - BLOOD ORDERABLES Performing Organization Address City/State/ZIP Code Phon e Number [facility] [address] LABS Magnesium (02/07/2014 4:23 AM CDT) P athologist Signature Magnesium 2.1 1.6 - 2.3 [facility] mg/dL [place] LABS Specimen Anatomical Collection Method Collection Time Receive d Time (Source) Location / / Volume Laterality Blood specimen 02/07/2014 4:23 AM 014 4:24 (specimen) CDT AM CDT Omaira Chavez PA-C LAB - BLOOD ORDERABLES Performing Organization Address City/[facility]/ZIP Code Phon e Number [facility] [address] LABS (ABNORMAL) CBC with platelets differential (02/07/2014 4:23 AM CDT) Patholo gist Method Time Signature WBC 2.7 (L) 4.0 - [facility] 11.0 [place] 10e9/L [place] LABS RBC Count 2.80 (L) 4.4 - 5.9 [facility] 10e12/L [facility] LABS Hemoglobin 8.5 (L) 13.3 - [facility] 17.7 g/dL [facility] LABS Hematocrit 25.8 (L) 40.0 - [facility] 53.0 % [facility] LABS MCV 92 78 - 100 [facility] fl [facility] LABS MCH 30.4 26.5 - [facility] 33.0 pg [facility] LABS MCHC 32.9 31.5 - [facility] 36.5 g/dL [facility] LABS RDW 14.5 10.0 - [facility] 15.0 % [facility] LABS Platelet Count 77 (L) 150 - 450 [facility] 10e9/L [facility] LABS Diff Method Automated [facility] Method [facility] LABS % Neutrophils 87.5 % [facility] LABS % Lymphocytes 3.8 % [facility] LABS % Monocytes 8.7 % [facility] LABS % Eosinophils 0.0 % [facility] % Basophils 0.0 % [facility] % Immature 0.0 % [facility] Granulocytes [facility] LABS Absolute 2.3 1.6 - 8.3 [facility] Neutrophil 10e9/L [facility] LABS Absolute 0.1 (L) 0.8 - 5.3 [facility] Lymphocytes 10e9/L [facility] LABS Absolute 0.2 0.0 - 1.3 [facility] Monocytes 10e9/L [facility] LABS Absolute 0.0 0.0 - 0.7 [facility] Eosinophils 10e9/L [facility] LABS Absolute 0.0 0.0 - 0.2 [facility] Basophils 10e9/L [facility] LABS Abs Immature 0.0 0 - 0.4 [facility] Granulocytes 10e9/L [facility] LABS Specimen Anatomical Collection Method Collection Time Receive d Time (Source) Location / / Volume Laterality Blood specimen 02/07/2014 4:23 AM 014 4:24 (specimen) CDT AM CDT Omaira Chavez PA-C LAB - BLOOD ORDERABLES Performing Organization Address City/State/ZIP Code Phon e Number [facility] [address] [place] [address] [facility] LABS (ABNORMAL) Hemoglobin A1c (02/07/2014 4:23 AM CDT) Analysis Performed At Patho logist Time Signature Hemoglobin A1C 6.1 (H) 4.3 - 6.0 [facility] LABS Specimen Anatomical Collection Method Collection Time Receive d Time (Source) Location / / Volume Laterality Blood specimen 02/07/2014 4:23 AM 014 4:24 (specimen) CDT AM CDT Omaira Chavez PA-C LAB - BLOOD ORDERABLES Performing Organization Address City/[facility]/ZIP Code Phon e Number [facility] [address] [place] [address] [facility] LABS (ABNORMAL) Glucose by meter (02/06/2014 10:06 PM CDT) P athologist Signature Glucose 247 (H) 60 - 99 POINT OF CARE mg/dL TEST, GLUCOSE Specimen Anatomical Collection Method Collection Time Receive d Time (Source) Location / / Volume Laterality 02/06/2014 10:06 02/06/2014 PM CDT 10:10 PM CDT Migel LARES - ROBERT POCT Performing Organization Address City/[facility]/ZIP Code Phon e Number FV POINT [...] LARES - ROBERT POCT Performing Organization Address City/[facility]/ZIP Code Phon e Number FV POINT [...] Signature Hemoglobin 8.8 (L) 13.3 - 17.7 [facility] g/dL [place] LABS Specimen Anatomical Collection Method Collection Time Receive d Time (Source) Location / / Volume Laterality Blood specimen 02/06/2014 4:59 PM 014 5:12 (specimen) CDT PM CDT Omaira Chavez PA-C LAB - BLOOD ORDERABLES Performing Organization Address City/[facility]/ZIP Code Phon e Number [address] LABS (ABNORMAL) Glucose by meter (02/06/2014 12:01 PM CDT) P athologist Signature Glucose 181 (H) 60 - 99 POINT OF CARE mg/dL TEST, GLUCOSE Specimen Anatomical Collection Method Collection Time Receive d Time (Source) Location / / Volume Laterality 02/06/2014 12:01 02/06/2014 PM CDT 12:05 PM CDT Migel LARES - ROBERT POCT Performing Organization Address City/[facility]/ZIP Code Phon e Number FV POINT OF CARE TEST, GLUCOSE POINT OF CARE TEST, GLUCOSE (ABNORMAL) Partial thromboplastin time (02/06/2014 5:57 AM CDT) athologist Signature PTT 154 (HH) 22 - 37 sec [facility] LABS Comment: Critical Value called to and read back Whitney Poon RN AT 0642. PW Specimen Anatomical Collection Method Collection Time Receive d Time (Source) Location / / Volume Laterality 02/06/2014 5:57 AM 4 6:03 CDT AM CDT Adeline Diaz MD LAB - BLOOD ORDERABLES Performing Organization Address City/[facility]/ZIP Code Phon e Number [facility] [address] [place], [place] [id number] [place] [address] LABS Heparin Xa (10a) Level (02/06/2014 5:57 AM CDT) P athologist Signature Heparin 10A 0.92 IU/mL [facility] LABS Comment: Therapeutic Range: ?? UFH: [...] LAB - BLOOD ORDERABLES Performing Organization Address City/[facility]/ZIP Code Phon e Number [facility] [address] LABS (ABNORMAL) INR (02/06/2014 5:57 AM CDT) P athologist Signature INR 1.32 (H) 0.86 - 1.14 [facility] LABS Specimen Anatomical Collection Method Collection Time Receive d Time (Source) Location / / Volume Laterality Blood specimen 02/06/2014 5:57 AM 014 6:03 (specimen) CDT AM CDT Omaira Chavez PA-C LAB - BLOOD ORDERABLES Performing Organization Address City/[facility]/ZIP Code Phon e Number [address] LABS (ABNORMAL) Basic metabolic panel (02/06/2014 5:57 AM CDT) Patholo gist Method Time Signature Sodium 142 133 - 144 [facility] mmol/L [facility] LABS Potassium 4.7 3.4 - 5.3 [facility] mmol/L [facility] LABS Chloride 106 94 - 109 [facility] mmol/L [facility] LABS Carbon Dioxide 28 20 - 32 [facility] mmol/L [facility] LABS Anion Gap 8 6 - 17 [facility] mmol/L [facility] LABS Glucose 196 (H) 60 - 99 [facility] mg/dL [facility] LABS Urea Nitrogen 71 (H) 7 - 30 [facility] mg/dL [facility] LABS Creatinine 3.96 (H) 0.66 - [facility] 1.25 mg/dL [facility] LABS GFR Estimate 15 (L) >60 [facility] mL/min/1.7 [place] m2 CAMPUS LABS GFR Estimate If 19 (L) >60 [facility] Black mL/min/1.7 [place] [address] CAMPUS LABS Calcium 9.4 8.5 - 10.4 [facility] mg/dL [facility] LABS Specimen Anatomical Collection Method Collection Time Receive d Time (Source) Location / / Volume Laterality Blood specimen 02/06/2014 5:57 AM 014 6:03 (specimen) CDT AM CDT Omaira Chavez PA-C LAB - BLOOD ORDERABLES Performing Organization Address [facility]/ZIP Code Phon e Number [address] LABS Phosphorus (02/06/2014 5:57 AM CDT) P athologist Signature Phosphorus 4.5 2.5 - 4.5 [facility] mg/dL [place] LABS Specimen Anatomical Collection Method Collection Time Receive d Time (Source) Location / / Volume Laterality Blood specimen 02/06/2014 5:57 AM 014 6:03 (specimen) CDT AM CDT Omaira Chavez PA-C LAB - BLOOD ORDERABLES Performing Organization Address City/[facility]/ZIP Code Phon e Number [facility] [address] LABS Magnesium (02/06/2014 5:57 AM CDT) P athologist Signature Magnesium 1.9 1.6 - 2.3 [facility] [place] mg/dL [place] LABS Specimen Anatomical Collection Method Collection Time Receive d Time (Source) Location / / Volume Laterality Blood specimen 02/06/2014 5:57 AM 014 6:03 (specimen) CDT AM CDT Omaira Yanely Chavez PA-C LAB - BLOOD ORDERABLES Performing Organization Address City/State/ZIP Code Phon e Number [facility] [address] [place] [address] [place] [facility] LABS (ABNORMAL) CBC with platelets differential (02/06/2014 5:57 AM CDT) [facility] gist Method Time Signature WBC 5.1 4.0 - [facility] 11.0 [facility] 10e9/L CAMPUS LABS RBC Count 3.13 (L) 4.4 - 5.9 [facility] 10e12/L [facility] LABS Hemoglobin 9.6 (L) 13.3 - [facility] 17.7 g/dL [facility] LABS Hematocrit 29.0 (L) 40.0 - [facility] 53.0 % [facility] LABS MCV 93 78 - 100 [facility] fl [facility] LABS MCH 30.7 26.5 - [facility] 33.0 pg [facility] LABS MCHC 33.1 31.5 - [facility] 36.5 g/dL [facility] LABS RDW 14.5 10.0 - [facility] 15.0 % [facility] LABS Platelet Count 85 (L) 150 - 450 [facility] 10e9/L [facility] LABS Diff Method Automated [facility] Method [facility] LABS % Neutrophils 86.0 % [facility] LABS % Lymphocytes 5.1 % [facility] LABS % Monocytes 8.7 % [facility] LABS % Eosinophils 0.0 % [facility] LABS % Basophils 0.0 % [facility] LABS % Immature 0.2 % [facility] Granulocytes [facility] LABS Absolute 4.4 1.6 - 8.3 [facility] Neutrophil 10e9/L [facility] LABS Absolute 0.3 (L) 0.8 - 5.3 [facility] Lymphocytes 10e9/L [facility] LABS Absolute 0.4 0.0 - 1.3 [facility] Monocytes 10e9/L [facility] LABS Absolute 0.0 0.0 - 0.7 [facility] Eosinophils 10e9/L [facility] LABS Absolute 0.0 0.0 - 0.2 [facility] Basophils 10e9/L [facility] LABS Abs Immature 0.0 0 - 0.4 [facility] Granulocytes 10e9/L [facility] LABS Specimen Anatomical Collection Method Collection Time Receive d Time (Source) Location / / Volume Laterality Blood specimen 02/06/2014 5:57 AM 014 6:03 (specimen) CDT AM CDT Omaira Chavez PA-C LAB - BLOOD ORDERABLES Performing Organization Address [facility]/ZIP Code Phon e Number [facility] [address] [place] [address] [facility] LABS (ABNORMAL) Lipid panel reflex to direct LDL (02/06/2014 5:57 AM CDT) P athologist Signature Cholesterol 126 <200 mg/dL [facility] LABS Comment: LDL Cholesterol is the primary guide to therapy. The NCEP recommends further evaluation of: patients with cholesterol greater than 200 mg/dL if additional risk facto rs are present, cholesterol greater than 240 mg/dL, triglycerides greater than 1 50 mg/dL, or HDL less than 40 mg/dL. Triglycerides 100 0 - 150 mg/dL [facility] LABS HDL Cholesterol 35 (L) >40 mg/dL [facility] LABS LDL Cholesterol Calculated 71 0 - 129 mg/dL [facility] LABS Comment: LDL Cholesterol is the primary guide to therapy: LDL-cholesterol goal in high risk patients is <100 mg/dL and in very high risk patients is <70 mg/dL. VLDL-Cholesterol 20 0 - 30 mg/dL [facility] Cholesterol/HDL Ratio 3.6 0.0 - 5.0 [facility] LAB[facility] Specimen Anatomical Collection Method Collection Time Receive d Time (Source) Location / / Volume Laterality Blood specimen 02/06/2014 5:57 AM 014 6:03 (specimen) CDT AM CDT Omaira Chavez PA-C LAB - BLOOD ORDERABLES Performing Organization Address City/[facility]/ZIP Code Phon e Number [facility] [address] [place] [address] [facility] LABS Tacrolimus level (02/06/2014 5:57 AM CDT) Patholo gist Method Time Signature Tacrolimus S Negative [facility] Last Dose [facility] LABS Tacrolimus 12.7 5.0 - [facility] Level 15.0 ug/L [facility] LABS Comment: Tacrolimus Reference [...] [facility] Code Phon e Number [facility] [address] [place], [place] [id number] [place] [address] LABS (ABNORMAL) Glucose by meter (02/06/2014 3:21 [...] athologist Signature Hemoglobin 10.2 (L) 13.3 - [facility] 17.7 g/dL [place] LABS Specimen Anatomical Collection Method Collection Time Receive d Time (Source) Location / / Volume Laterality Blood specimen 02/06/2014 1:02 AM 014 1:11 (specimen) CDT AM CDT Deysi Alicea MD LAB - BLOOD ORDERABLES Performing Organization Address City/State/ZIP Code Phon e Number [facility] [address] [place], [place] [id number] [place] [address] LABS (ABNORMAL) Glucose by meter (02/05/2014 10:23 PM CDT) athologist Signature Glucose 254 (H) 60 - 99 POINT OF CARE mg/dL TEST, GLUCOSE Specimen Anatomical Collection Method Collection Time Receive d Time (Source) Location / / Volume Laterality 02/05/2014 10:23 02/05/2014 PM CDT 10:25 PM CDT Migel Merchant MD LAB - BEAKER POCT Performing Organization Address City/[facility]/ZIP Code Phon e Number FV POINT OF CARE TEST, GLUCOSE POINT OF CARE TEST, GLUCOSE Heparin 10a Level (02/05/2014 7:32 PM CDT) athologist Signature Heparin 10A 0.64 IU/mL [facility] LABS Comment: Therapeutic Range: ?? UFH: [...] Phon e Number [facility] [address] [place] [address] [facility] LABS (ABNORMAL) Glucose by meter (02/05/2014 6:04 PM CDT) P athologist Signature Glucose 232 (H) 60 - 99 POINT OF CARE mg/dL TEST, GLUCOSE Specimen Anatomical Collection Method Collection Time Receive d Time (Source) Location / / Volume Laterality 02/05/2014 6:04 PM 4 6:10 CDT PM CDT Migel Merchant MD LAB - BEAKER POCT Performing Organization Address City/[facility]/ZIP Code Phon e Number FV POINT [...] LAB - BEAKER POCT Performing Organization Address City/[facility]/ZIP Code Phon e Number FV POINT [...] Signature INR 1.24 (H) 0.86 - 1.14 [facility] LABS Specimen Anatomical Collection Method Collection Time Receive d Time (Source) Location / / Volume Laterality Blood specimen 02/05/2014 12:04 4 (specimen) PM CDT 12:10 PM CDT Teresa Wright [facility] LAB - BLOOD ORDERABLES Performing Organization Address City/State/ZIP Code Phon e Number [id number] [place] [address] LABS (ABNORMAL) CBC with platelets (02/05/2014 12:04 PM CDT) [facility] gist Method Time Signature WBC 7.4 4.0 - 11.0 [facility] 10e9/L [facility] LABS RBC Count 3.31 (L) 4.4 - 5.9 [facility] 10e12/L [facility] LABS Hemoglobin 10.3 (L) 13.3 - [facility] 17.7 g/dL [facility] LABS Hematocrit 31.0 (L) 40.0 - [facility] 53.0 % [facility] LABS MCV 94 78 - 100 [facility] fl [facility] LABS MCH 31.1 26.5 - [facility] 33.0 pg [facility] LABS MCHC 33.2 31.5 - [facility] 36.5 g/dL [facility] LABS RDW 14.7 10.0 - [facility] 15.0 % [facility] LABS Platelet Count 91 (L) 150 - 450 [facility] 10e9/L [facility] LABS Specimen Anatomical Collection Method Collection Time Receive d Time (Source) Location / / Volume Laterality Blood specimen 02/05/2014 12:04 4 (specimen) PM CDT 12:10 PM CDT Omaira Chavez PA-C LAB - BLOOD ORDERABLES Performing Organization Address City/State/ZIP Code Phon e Number [facility] [address] [place] [address] [facility] LABS (ABNORMAL) Glucose by meter (02/05/2014 11:25 AM CDT) P athologist Signature Glucose 190 (H) 60 - 99 POINT OF CARE mg/dL TEST, GLUCOSE Specimen Anatomical Collection Method Collection Time Receive d Time (Source) Location / / Volume Laterality 02/05/2014 11:25 02/05/2014 AM CDT 11:30 AM CDT Migel LARES - ROBERT POCT Performing Organization Address City/[facility]/ZIP Code Phon e Number FV POINT [...] LARES - BEAKER POCT Performing Organization Address City/[facility]/ZIP Code Phon e Number FV POINT [...] Basic metabolic panel (02/05/2014 7:02 AM CDT) [facility] gist Method Time Signature Sodium 143 133 - 144 [facility] mmol/L [facility] LABS Potassium 4.3 3.4 - 5.3 [facility] mmol/L [facility] Chloride 107 94 - 109 [facility] mmol/L [facility] LABS Carbon Dioxide 25 20 - 32 [facility] mmol/L [facility] LABS Anion Gap 10 6 - 17 [facility] mmol/L [facility] LABS Glucose 123 (H) 60 - 99 [facility] mg/dL [facility] LABS Urea Nitrogen 66 (H) 7 - 30 [facility] mg/dL [facility] LABS Creatinine 4.77 (H) 0.66 - [facility] 1.25 mg/dL [facility] [place] LABS GFR Estimate 12 (L) >60 [facility] mL/min/1.7 [facility] m2 [facility]AMPUS LABS GFR Estimate If 15 (L) >60 [facility] Black mL/min/1.7 [place] m2 CAMPUS LABS Calcium 9.4 8.5 - 10.4 [facility] mg/dL [facility] LAB[facility] Specimen Anatomical Collection Method Collection Time Receive d Time (Source) Location / / Volume Laterality Blood specimen 02/05/2014 7:02 AM 014 7:05 (specimen) CDT AM CDT Omaira Chavez PA-C LAB - BLOOD ORDERABLES Performing Organization Address City/State/ZIP Code Phon e Number [address] LABS (ABNORMAL) Phosphorus (02/05/2014 7:02 AM [...] Phon e Number [facility] [address] LABS Magnesium (02/05/2014 7:02 AM CDT) P athologist Signature Magnesium 2.0 1.6 - 2.3 [facility] mg/dL [place] LABS Specimen Anatomical Collection Method Collection Time Receive d Time (Source) Location / / Volume Laterality Blood specimen 02/05/2014 7:02 AM 014 7:05 (specimen) CDT AM CDT Omaira Chavez PA-C LAB - BLOOD ORDERABLES Performing Organization Address City/[facility]/ZIP Code Phon e Number [facility] [address] [place], [place] [id number] [place] [address] LABS (ABNORMAL) CBC with platelets differential (02/05/2014 7:02 AM CDT) Patholo gist Method Time Signature WBC 8.9 4.0 - [facility] 11.0 [facility] 10e9/L [place] [facility] RBC Count 3.20 (L) 4.4 - 5.9 [facility] 10e12/L [facility]S Hemoglobin 9.7 (L) 13.3 - [facility] 17.7 g/dL [facility]S Hematocrit 30.0 (L) 40.0 - [facility] 53.0 % [facility] MCV 94 78 - 100 [facility] fl [facility] MCH 30.3 26.5 - [facility] 33.0 pg [facility]S MCHC 32.3 31.5 - [facility] 36.5 g/dL [facility] RDW 14.6 10.0 - [facility] 15.0 % [facility] Platelet Count 96 (L) 150 - 450 [facility] 10e9/L [facility] Diff Method Automated [facility] Method [facility] LABS % Neutrophils 90.2 % [facility] LABS % Lymphocytes 4.4 % [facility]S % Monocytes 5.2 % [facility] % Eosinophils 0.0 % [facility] % Basophils 0.0 % [facility] LABS % Immature 0.2 % [facility] Granulocytes [facility] Absolute 8.1 1.6 - 8.3 [facility] Neutrophil 10e9/L [facility] Absolute 0.4 (L) 0.8 - 5.3 [facility] Lymphocytes 10e9/L [place] [facility] Absolute 0.5 0.0 - 1.3 [facility] Monocytes 10e9/L [facility] Absolute 0.0 0.0 - 0.7 [facility] Eosinophils 10e9/L [place] [facility] Absolute 0.0 0.0 - 0.2 [facility] Basophils 10e9/L [place] [facility] Abs Immature 0.0 0 - 0.4 [facility] Granulocytes 10e9/L [facility] [place] [facility] Specimen Anatomical Collection Method Collection Time Receive d Time (Source) Location / / Volume Laterality Blood specimen 02/05/2014 7:02 AM 014 7:05 (specimen) CDT AM CDT Omaira Chavez PA-C LAB - BLOOD ORDERABLES Performing Organization Address City/[facility] Code Phon e Number [address] LABS (ABNORMAL) Parathormone intact (02/05/2014 7:02 AM CDT) Patholo gist Method Time Signature Parathyroid 362 (H) 12 - 72 [facility] Hormone Intact pg/mL [facility] LABS Specimen Anatomical Collection Method Collection Time Receive d Time (Source) Location / / Volume Laterality Blood specimen 02/05/2014 7:02 AM 014 7:05 (specimen) CDT AM CDT Sina Robison MD LAB - BLOOD ORDERABLES Performing Organization Address City/State/ZIP Code Phon e Number [address] LABS (ABNORMAL) Ferritin (02/05/2014 7:02 AM CDT) P athologist Signature Ferritin 932 (H) 20 - 300 [facility] UNIVERSITY ng/mL CAMPUS LABS Specimen Anatomical Collection Method Collection Time Receive d Time (Source) Location / / Volume Laterality Blood specimen 02/05/2014 7:02 AM 014 7:05 (specimen) CDT AM CDT Sina Robison MD LAB - BLOOD ORDERABLES Performing Organization Address City/State/ZIP Code Phon e Number [address] [place] [address] [facility] LABS (ABNORMAL) Iron and iron binding capacity (02/05/2014 7:02 AM CDT) Analysis Performed At Patho logist Time Signature Iron 119 35 - 180 [facility] ug/dL [facility] LABS Iron Binding 207 (L) 240 - 430 [facility] Cap ug/dL [facility] LABS Iron Saturation 58 (H) 15 - 46 % [facility] Index [facility] LABS Specimen Anatomical Collection Method Collection Time Receive d Time (Source) Location / / Volume Laterality Blood specimen 02/05/2014 7:02 AM 014 7:05 (specimen) CDT AM CDT Sina Robison MD LAB - BLOOD ORDERABLES Performing Organization Address City/[facility]/ZIP Code Phon e Number [facility] [address] [place] [address] [facility] LABS (ABNORMAL) Glucose by meter (02/05/2014 6:59 AM CDT) athologist Signature Glucose 123 (H) 60 - 99 POINT OF CARE mg/dL TEST, GLUCOSE Specimen Anatomical Collection Method Collection Time Receive d Time (Source) Location / / Volume Laterality 02/05/2014 6:59 AM 4 7:05 CDT AM CDT Migel JONES POCT Performing Organization Address City/[facility]/ZIP Code Phon e Number FV POINT [...] CDT Migel JONES POCT Performing Organization Address City/[facility]/ZIP Code Phon e Number FV POINT [...] LARES - BEAJ POCT Performing Organization Address City/[facility] Code Phon e Number FV POINT [...] LAB - BEAJ POCT Performing Organization Address City/[facility]/ZIP Code Phon e Number FV POINT [...] LAB - BEAJ POCT Performing Organization Address City/[facility]/ZIP Code Phon e Number FV POINT [...] LAB - BEAJ POCT Performing Organization Address [facility] Phon e Number FV POINT OF CARE [...] LAB - BEAJ POCT Performing Organization Address [facility] Phon e Number FV POINT OF CARE [...] Carr MD ECG ORDERABLES Performing Organization Address [facility] Phon e Number RADIOLOGY RESULTS (ABNORMAL) Glucose by meter (02/04/2014 10:56 PM CDT) P athologist Signature Glucose 161 (H) 60 - 99 POINT OF CARE mg/dL TEST, GLUCOSE Specimen Anatomical Collection Method Collection Time Receive d Time (Source) Location / / Volume Laterality 02/04/2014 10:56 02/04/2014 PM CDT 11:00 PM CDT Migel Merchant MD LAB - BEAJ POCT Performing Organization Address [facility] Phon e Number FV POINT OF CARE [...] LAB - BEAKER POCT Performing Organization Address [facility] Phon e Number FV POINT OF CARE [...] LAB - BEAKER POCT Performing Organization Address [facility] Phon e Number FV POINT OF CARE [...] LAB - BEAKER POCT Performing Organization Address [facility] Phon e Number FV POINT OF CARE TEST, GLUCOSE POINT OF CARE TEST, GLUCOSE Troponin I (02/04/2014 7:10 PM CDT) P athologist Signature Troponin I 0.016 0.000 - [facility] 0.034 ug/L [place] [facility] Specimen Anatomical Collection Method Collection Time Receive d Time (Source) Location / / Volume Laterality Blood specimen 02/04/2014 7:10 PM 014 7:23 (specimen) CDT PM CDT Adeline Diaz MD LAB - BLOOD ORDERABLES Performing Organization Address City/State/ZIP Code Phon e Number [facility] [address] [place] [address] [facility] LABS (ABNORMAL) Glucose by meter (02/04/2014 [...] LAB - BEAJ POCT Performing Organization Address City/[facility]/ZIP Code Phon e Number FV POINT [...] athologist Signature Troponin I 0.025 0.000 - [facility] 0.034 ug/L [place] [facility] Specimen Anatomical Collection Method Collection Time Receive d Time (Source) Location / / Volume Laterality Blood specimen 02/04/2014 12:42 4 (specimen) PM CDT 12:45 PM CDT Adeline Diaz MD LAB - BLOOD ORDERABLES Performing Organization Address City/[facility]/ZIP Code Phon e Number [facility] [address] [place] [address] [facility] LABS (ABNORMAL) Glucose by meter (02/04/2014 12:27 PM CDT) athologist Signature Glucose 140 (H) 60 - 99 POINT OF CARE mg/dL TEST, GLUCOSE Specimen Anatomical Collection Method Collection Time Receive d Time (Source) Location / / Volume Laterality 02/04/2014 12:27 02/04/2014 PM CDT 12:30 PM CDT Migel Merchant MD LAB - BEAKER POCT Performing Organization Address City/[facility]/ZIP Code Phon e Number FV POINT [...] LAB - BEAKER POCT Performing Organization Address City/[facility]/ZIP Code Phon e Number FV POINT [...] EKG 12-lead, complete (02/04/2014 9:21 AM CDT) [facility] gist Method Time Signature Interpretation ECG Click View RADIOLOGY Image link RESULTS to view waveform and result Specimen (Source) Anatomical Collection Method Collection Time Re ceived Time Location / / Volume Laterality 02/04/2014 9:21 AM CDT Omaira Chavez PA-C ECG ORDERABLES Performing Organization Address City/[facility]/ZIP Code Phon e Number RADIOLOGY RESULTS (ABNORMAL) Glucose by meter (02/04/2014 9:02 AM CDT) athologist Signature Glucose 203 (H) 60 - 99 POINT OF CARE mg/dL TEST, GLUCOSE Specimen Anatomical Collection Method Collection Time Receive d Time (Source) Location / / Volume Laterality 02/04/2014 9:02 AM 4 9:05 CDT AM CDT Migel LARES - ROBERT POCT Performing Organization Address [facility] Code Phon e Number FV POINT [...] LARES - ROBERT POCT Performing Organization Address City/[facility] Code Phon e Number FV POINT [...] LAB - BEAKER POCT Performing Organization Address City/[facility]/ZIP Code Phon e Number FV POINT OF CARE TEST, GLUCOSE POINT OF CARE TEST, GLUCOSE EKG 12-lead, complete (02/04/2014 7:03 AM CDT) [facility] gist Method Time Signature Interpretation ECG Click View RADIOLOGY Image link RESULTS to view waveform and result Specimen (Source) Anatomical Collection Method Collection Time Re ceived Time Location / / Volume Laterality 02/04/2014 7:03 AM CDT Caitlin Owens MD ECG ORDERABLES Performing Organization Address [facility]/ZIP Code Phon e Number RADIOLOGY RESULTS (ABNORMAL) Glucose by meter (02/04/2014 6:09 AM CDT) athologist Signature Glucose 160 (H) 60 - 99 POINT OF CARE mg/dL TEST, GLUCOSE Specimen Anatomical Collection Method Collection Time Receive d Time (Source) Location / / Volume Laterality 02/04/2014 6:09 AM 4 6:15 CDT AM CDT Migel Merchant MD LAB - BEAKER POCT Performing Organization Address [facility] Phon e Number FV POINT OF CARE TEST, GLUCOSE POINT OF CARE TEST, GLUCOSE Troponin I (02/04/2014 5:49 AM CDT) athologist Signature Troponin I ES <0.012 0.000 - [facility] 0.034 ug/L CAMPUS LABS Specimen Anatomical Collection Method Collection Time Receive d Time (Source) Location / / Volume Laterality 02/04/2014 5:49 AM 4 5:51 CDT AM CDT Caitlin Owens MD LAB - BLOOD ORDERABLES Performing Organization Address City/[facility]/ZIP Code Phon e Number [facility] [address] [place] [address] [facility] LABS (ABNORMAL) Basic metabolic panel (02/04/2014 5:49 AM CDT) Patholo gist Method Time Signature Sodium 142 133 - 144 [facility] mmol/L [facility] LABS Potassium 4.9 3.4 - 5.3 [facility] mmol/L [facility] LABS Chloride 107 94 - 109 [facility] mmol/L [facility] LABS Carbon Dioxide 23 20 - 32 [facility] mmol/L [facility] LABS Anion Gap 12 6 - 17 [facility] mmol/L [facility] LABS Glucose 151 (H) 60 - 99 [facility] mg/dL [facility] LABS Urea Nitrogen 57 (H) 7 - 30 [facility] mg/dL [facility] LABS Creatinine 5.94 (H) 0.66 - [facility] 1.25 mg/dL [facility] LABS GFR Estimate 10 (L) >60 [facility] mL/min/1.7 [place] m2 [place] [facility] GFR Estimate If 12 (L) >60 [facility] Black mL/min/1.7 [place] m2 [place] [facility] Calcium 9.4 8.5 - 10.4 [facility] mg/dL [facility] LABS Specimen Anatomical Collection Method Collection Time Receive d Time (Source) Location / / Volume Laterality Blood specimen 02/04/2014 5:49 AM 014 5:51 (specimen) CDT AM CDT Omaira Chavez PA-C LAB - BLOOD ORDERABLES Performing Organization Address City/[facility]/ZIP Code Phon e Number [address] LABS (ABNORMAL) Phosphorus (02/04/2014 5:49 AM CDT) P athologist Signature Phosphorus 6.3 (H) 2.5 - 4.5 [facility] UN[facility]ERSITY mg/dL [place] [facility] Specimen Anatomical Collection Method Collection Time Receive d Time (Source) Location / / Volume Laterality Blood specimen 02/04/2014 5:49 AM 014 5:51 (specimen) CDT AM CDT Omaira Chavez PA-C LAB - BLOOD ORDERABLES Performing Organization Address City/State/ZIP Code Phon e Number [address] LABS Magnesium (02/04/2014 5:49 AM CDT) P athologist Signature Magnesium 2.1 1.6 - 2.3 [facility]ITY mg/dL [place] [facility] Specimen Anatomical Collection Method Collection Time Receive d Time (Source) Location / / Volume Laterality Blood specimen 02/04/2014 5:49 AM 014 5:51 (specimen) CDT AM CDT Omaira Chavez PA-C LAB - BLOOD ORDERABLES Performing Organization Address City/State/ZIP Code Phon e Number [facility] [address] [place] [address] [facility] ([facility]NORMAL[facility] CBC with platelets differential (02/04/2014 5:49 AM CDT) [facility] gist Method Time Signature WBC 13.8 (H) 4.0 - [facility] 11.0 [facility] 10e9/L [facility]AMP[facility]S RBC Count 3.10 (L) 4.4 - 5.9 [facility] 10e12/L [facility]S Hemoglobin 9.5 (L) 13.3 - [facility] 17.7 g/dL [facility] LABS Hematocrit 28.7 (L) 40.0 - [facility] 53.0 % [facility] LABS MCV 93 78 - 100 [facility] fl [facility] [place] [facility] MCH 30.6 26.5 - [facility] 33.0 pg [facility] LABS MCHC 33.1 31.5 - [facility] 36.5 g/dL [facility] LABS RDW 14.6 10.0 - [facility] 15.0 % [facility] [place] [facility] Platelet Count 91 (L) 150 - 450 [facility] 10e9/L [facility] LABS Diff Method Automated [facility] Method [facility] LABS % Neutrophils 95.8 % [facility] LABS % Lymphocytes 1.2 % [facility] LABS % Monocytes 2.8 % [facility] % Eosinophils 0.0 % [facility] % Basophils 0.0 % [facility] % Immature 0.2 % [facility] Granulocytes [facility] LABS Absolute 13.2 (H) 1.6 - 8.3 [facility] Neutrophil 10e9/L [facility] LABS Absolute 0.2 (L) 0.8 - 5.3 [facility] Lymphocytes 10e9/L [facility] LABS Absolute 0.4 0.0 - 1.3 [facility] Monocytes 10e9/L [facility] LABS Absolute 0.0 0.0 - 0.7 [facility] Eosinophils 10e9/L [facility] LABS Absolute 0.0 0.0 - 0.2 [facility] Basophils 10e9/L [facility] LABS Abs Immature 0.0 0 - 0.4 [facility] Granulocytes 10e9/L [facility] LABS Specimen Anatomical Collection Method Collection Time Receive d Time (Source) Location / / Volume Laterality Blood specimen 02/04/2014 5:49 AM 014 5:51 (specimen) CDT AM CDT Omaira Chavez PA-C LAB - BLOOD ORDERABLES Performing Organization Address City/[facility]/ZIP Code Phon e Number [address] [address] [facility] LABS (ABNORMAL) Glucose by meter (02/04/2014 5:33 AM CDT) P athologist Signature Glucose 155 (H) 60 - 99 POINT OF CARE mg/dL TEST, GLUCOSE Specimen Anatomical Collection Method Collection Time Receive d Time (Source) Location / / Volume Laterality 02/04/2014 5:33 AM 4 5:35 CDT AM CDT Migel LARES - ROBERT POCT Performing Organization Address City/[facility]/ZIP Code Phon e Number FV POINT [...] LARES - ROBERT POCT Performing Organization Address City/[facility]/ZIP Code Phon e Number FV POINT [...] LARES - ROBERT POCT Performing Organization Address City/[facility]/ZIP Code Phon e Number FV POINT [...] LAB - BEAJ POCT Performing Organization Address City/[facility]/ZIP Code Phon e Number FV POINT [...] LAB - ROBERT POCT Performing Organization Address [facility]/ZIP Code Phon e Number FV POINT [...] LAB - BEAKER POCT Performing Organization Address City/[facility]/ZIP Code Phon e Number FV POINT OF CARE TEST, GLUCOSE POINT OF CARE TEST, GLUCOSE Potassium (02/03/2014 10:16 PM CDT) P athologist Signature Potassium 4.8 3.4 - 5.3 [facility] mmol/L [place] [facility] Specimen Anatomical Collection Method Collection Time Receive d Time (Source) Location / / Volume Laterality Blood specimen 02/03/2014 10:16 4 (specimen) PM CDT 10:19 PM CDT Caitlin Owens MD LAB - BLOOD ORDERABLES Performing Organization Address City/State/ZIP Code Phon e Number [facility] [address] [place], [place] [id number] [place] [address] LABS (ABNORMAL) Hemoglobin (02/03/2014 10:16 PM CDT) athologist Signature Hemoglobin 9.4 (L) 13.3 - 17.7 [facility] g/dL [place] [facility] Specimen Anatomical Collection Method Collection Time Receive d Time (Source) Location / / Volume Laterality Blood specimen 02/03/2014 10:16 4 (specimen) PM CDT 10:19 PM CDT Caitlin Owens MD LAB - BLOOD ORDERABLES Performing Organization Address City/[facility]/ZIP Code Phon e Number [facility] [address] [place], [place] [id number] [place] [address] LABS (ABNORMAL) Glucose by meter (02/03/2014 9:55 PM CDT) athologist Signature Glucose 167 (H) 60 - 99 POINT OF CARE mg/dL TEST, GLUCOSE Specimen Anatomical Collection Method Collection Time Receive d Time (Source) Location / / Volume Laterality 02/03/2014 9:55 PM 4 CDT 10:00 PM CDT Migel LARES - ROBERT POCT Performing Organization Address City/[facility]/ZIP Code Phon e Number FV POINT [...] LARES - BEAJ POCT Performing Organization Address City/[facility]/ZIP Code Phon e Number FV POINT [...] LARES - ROBERT POCT Performing Organization Address [facility]/ZIP Code Phon e Number FV POINT OF CARE TEST, GLUCOSE POINT OF CARE TEST, GLUCOSE Potassium (02/03/2014 6:52 PM CDT) athologist Signature Potassium 4.7 3.4 - 5.3 [facility] mmol/L CAMPUS LABS Specimen Anatomical Collection Method Collection Time Receive d Time (Source) Location / / Volume Laterality Blood specimen 02/03/2014 6:52 PM 014 6:53 (specimen) CDT PM CDT Caitlin Owens MD LAB - BLOOD ORDERABLES Performing Organization Address [facility] Code Phon e Number [address] LABS (ABNORMAL) Hemoglobin (02/03/2014 6:52 PM CDT) athologist Signature Hemoglobin 9.6 (L) 13.3 - 17.7 [facility] g/dL CAMPUS LABS Specimen Anatomical Collection Method Collection Time Receive d Time (Source) Location / / Volume Laterality Blood specimen 02/03/2014 6:52 PM 014 6:53 (specimen) CDT PM CDT Caitlin Owens MD LAB - BLOOD ORDERABLES Performing Organization Address City/[facility]/ZIP Code Phon e Number [address] LABS (ABNORMAL) Glucose by meter (02/03/2014 6:00 PM CDT) P athologist Signature Glucose 140 (H) 60 - 99 POINT OF CARE mg/dL TEST, GLUCOSE Specimen Anatomical Collection Method Collection Time Receive d Time (Source) Location / / Volume Laterality 02/03/2014 6:00 PM 4 6:05 CDT PM CDT Migel Merchant MD LAB - BEAJ POCT Performing Organization Address City/[facility]/ZIP Code Phon e Number FV POINT [...] LAB - BEAJ POCT Performing Organization Address City/[facility]/ZIP Code Phon e Number FV POINT [...] LAB - BEAJ POCT Performing Organization Address City/[facility]/ZIP Code Phon e Number FV POINT [...] athologist Signature Potassium 4.7 3.4 - 5.3 [facility] mmol/L CAMPUS LABS Specimen Anatomical Collection Method Collection Time Receive d Time (Source) Location / / Volume Laterality Blood specimen 02/03/2014 1:41 PM 014 1:43 (specimen) CDT PM CDT Caitlin Owens MD LAB - BLOOD ORDERABLES Performing Organization Address City/[facility]/ZIP Code Phon e Number [facility] [address] LABS (ABNORMAL) Hemoglobin (02/03/2014 1:41 PM CDT) athologist Signature Hemoglobin 9.8 (L) 13.3 - 17.7 [facility] g/dL [place] [facility] Specimen Anatomical Collection Method Collection Time Receive d Time (Source) Location / / Volume Laterality Blood specimen 02/03/2014 1:41 PM 014 1:43 (specimen) CDT PM CDT Caitlin Owens MD LAB - BLOOD ORDERABLES Performing Organization Address City/[facility]/ZIP Code Phon e Number [address] LABS (ABNORMAL) Glucose by meter (02/03/2014 [...] CDT Migel JONES POCT Performing Organization Address City/[facility]/ZIP Code Phon e Number FV POINT OF CARE TEST, GLUCOSE POINT OF CARE TEST, GLUCOSE Potassium (02/03/2014 10:11 AM CDT) P athologist Signature Potassium 4.8 3.4 - 5.3 [facility] mmol/L CAMPUS LABS Specimen Anatomical Collection Method Collection Time Receive d Time (Source) Location / / Volume Laterality Blood specimen 02/03/2014 10:11 4 (specimen) AM CDT 10:23 AM CDT Caitlin Owens MD LAB - BLOOD ORDERABLES Performing Organization Address City/[facility]/ZIP Code Phon e Number [address] LABS (ABNORMAL) Hemoglobin (02/03/2014 10:11 AM CDT) P athologist Signature Hemoglobin 9.7 (L) 13.3 - 17.7 [facility] g/dL CAMPUS LABS Specimen Anatomical Collection Method Collection Time Receive d Time (Source) Location / / Volume Laterality Blood specimen 02/03/2014 10:11 4 (specimen) AM CDT 10:23 AM CDT Caitlin Owens MD LAB - BLOOD ORDERABLES Performing Organization Address City/[facility]/ZIP Code Phon e Number [address] LABS (ABNORMAL) Glucose by meter (02/03/2014 9:58 AM CDT) P athologist Signature Glucose 168 (H) 60 - 99 POINT OF CARE mg/dL TEST, GLUCOSE Specimen Anatomical Collection Method Collection Time Receive d Time (Source) Location / / Volume Laterality 02/03/2014 9:58 AM 4 CDT 10:00 AM CDT Migel Merchant MD LAB - BEAKER POCT Performing Organization Address [facility] Phon e Number FV POINT OF CARE [...] LARES - BEAJ POCT Performing Organization Address [facility] Phon e Number FV POINT OF CARE [...] findings. AIRAM [place] MD Jose Aguirre MD [facility] ORDERABLES (ABNORMAL) Glucose by meter (02/03/2014 8:06 AM CDT) P athologist Signature Glucose 176 (H) 60 - 99 POINT OF CARE mg/dL TEST, GLUCOSE Specimen Anatomical Collection Method Collection Time Receive d Time (Source) Location / / Volume Laterality 02/03/2014 8:06 AM 4 8:10 CDT AM CDT Migel Merchant MD [facility] POCT Performing Organization Address City/State/ZIP Code Phon [...] LAB - ROBERT POCT Performing Organization Address City/[facility]/ZIP Code Phon e Number FV POINT OF CARE TEST, GLUCOSE POINT OF CARE TEST, GLUCOSE (ABNORMAL) Basic metabolic panel (02/03/2014 5:38 AM CDT) Patholo gist Method Time Signature Sodium 141 133 - 144 [facility] mmol/L [facility] [place] [facility] Potassium 4.4 3.4 - 5.3 [facility] mmol/L [facility] LABS Chloride 105 94 - 109 [facility] mmol/L [facility] LABS Carbon Dioxide 20 20 - 32 [facility] mmol/L [facility] LABS Anion Gap 15 6 - 17 [facility] mmol/L [facility] LABS Glucose 170 (H) 60 - 99 [facility] mg/dL [facility] LABS Urea Nitrogen 49 (H) 7 - 30 [facility] mg/dL [facility] LABS Creatinine 6.38 (H) 0.66 - [facility] 1.25 mg/dL [facility] LABS GFR Estimate 9 (L) >60 [facility] mL/min/1.7 [place] m2 [facility]AMP[facility] LABS GFR Estimate If 11 (L) >60 [facility] Black mL/min/1.7 [place] [address] CAMPUS LABS Calcium 9.1 8.5 - 10.4 [facility] mg/dL [facility] [place] [facility] Specimen Anatomical Collection Method Collection Time Receive d Time (Source) Location / / Volume Laterality Blood specimen 02/03/2014 5:38 AM 014 5:40 (specimen) CDT AM CDT Omaira Chavez PA-C LAB - BLOOD ORDERABLES Performing Organization Address City/State/ZIP Code Phon e Number [facility] [address] LABS (ABNORMAL) Phosphorus (02/03/2014 5:38 AM CDT) athologist Signature Phosphorus 4.7 (H) 2.5 - 4.5 [facility] mg/dL [place] LABS Specimen Anatomical Collection Method Collection Time Receive d Time (Source) Location / / Volume Laterality Blood specimen 02/03/2014 5:38 AM 014 5:40 (specimen) CDT AM CDT Omaira Chavez PA-C LAB - BLOOD ORDERABLES Performing Organization Address City/[facility]/ZIP Code Phon e Number [facility] [address] LABS Magnesium (02/03/2014 5:38 AM CDT) athologist Signature Magnesium 2.0 1.6 - 2.3 [facility] mg/dL [place] LABS Specimen Anatomical Collection Method Collection Time Receive d Time (Source) Location / / Volume Laterality Blood specimen 02/03/2014 5:38 AM 014 5:40 (specimen) CDT AM CDT Omaira Chavez PA-C LAB - BLOOD ORDERABLES Performing Organization Address City/State/ZIP Code Phon e Number [facility] [address] LABS (ABNORMAL) CBC with platelets differential (02/03/2014 5:38 AM CDT) [facility] Method Time Signature WBC 13.2 (H) 4.0 - [facility] 11.0 [place] 10e9/L [place] LABS RBC Count 3.20 (L) 4.4 - 5.9 [facility] 10e12/L [facility] LABS Hemoglobin 9.9 (L) 13.3 - [facility] 17.7 g/dL [facility] LABS Hematocrit 30.2 (L) 40.0 - [facility] 53.0 % [facility] LABS MCV 94 78 - 100 [facility] fl [facility] LABS MCH 30.9 26.5 - [facility] 33.0 pg [facility] LABS MCHC 32.8 31.5 - [facility] 36.5 g/dL [facility] LABS RDW 14.5 10.0 - [facility] 15.0 % [facility] LABS Platelet Count 108 (L) 150 - 450 [facility] 10e9/L [facility] [place] LABS Diff Method Automated [facility] Method [facility] LABS % Neutrophils 96.9 % [facility] % Lymphocytes 0.7 % [facility] % Monocytes 2.1 % [facility] % Eosinophils 0.0 % [facility] LABS % Basophils 0.1 % [facility] LABS % Immature 0.2 % [facility] Granulocytes [facility] LABS Absolute 12.8 (H) 1.6 - 8.3 [facility] Neutrophil 10e9/L [facility] LABS Absolute 0.1 (L) 0.8 - 5.3 [facility] Lymphocytes 10e9/L [facility] LABS Absolute 0.3 0.0 - 1.3 [facility] Monocytes 10e9/L [facility] LABS Absolute 0.0 0.0 - 0.7 [facility] Eosinophils 10e9/L [facility] LABS Absolute 0.0 0.0 - 0.2 [facility] Basophils 10e9/L [facility] LABS Abs Immature 0.0 0 - 0.4 [facility] Granulocytes 10e9/L [facility] LABS Specimen Anatomical Collection Method Collection Time Receive d Time (Source) Location / / Volume Laterality Blood specimen 02/03/2014 5:38 AM 014 5:40 (specimen) CDT AM CDT Omaira Chavez PA-C LAB - BLOOD ORDERABLES Performing Organization Address City/[facility]/ZIP Code Phon e Number [address] LABS (ABNORMAL) Hemoglobin A1c (02/03/2014 5:38 AM CDT) Analysis Performed At Patho logist Time Signature Hemoglobin A1C 6.2 (H) 4.3 - 6.0 [facility] % [facility] LABS Specimen Anatomical Collection Method Collection Time Receive d Time (Source) Location / / Volume Laterality Blood specimen 02/03/2014 5:38 AM 014 5:40 (specimen) CDT AM CDT Caitlin Owens MD LAB - BLOOD ORDERABLES Performing Organization Address City/[facility]/ZIP Code Phon e Number [address] LABS (ABNORMAL) Glucose by meter (02/03/2014 5:05 AM CDT) P athologist Signature Glucose 176 (H) 60 - 99 POINT OF CARE mg/dL TEST, GLUCOSE Specimen Anatomical Collection Method Collection Time Receive d Time (Source) Location / / Volume Laterality 02/03/2014 5:05 AM 4 5:10 CDT AM CDT Migel Merchant MD LAB - BEAKER POCT Performing Organization Address [facility] Code Phon e Number FV POINT [...] LAB - BEAJ POCT Performing Organization Address [facility] Phon e Number FV POINT OF CARE [...] LAB - BEAKER POCT Performing Organization Address [facility] Phon e Number FV POINT OF CARE [...] LAB - BEAJ POCT Performing Organization Address [facility] Phon e Number FV POINT OF CARE TEST, GLUCOSE POINT OF CARE TEST, GLUCOSE Potassium (02/03/2014 1:18 AM CDT) athologist Signature Potassium 4.7 3.4 - 5.3 [facility] mmol/L CAMPUS LABS Specimen Anatomical Collection Method Collection Time Receive d Time (Source) Location / / Volume Laterality Blood specimen 02/03/2014 1:18 AM 014 1:20 (specimen) CDT AM CDT Caitlin Owens MD LAB - BLOOD ORDERABLES Performing Organization Address City/[facility]/ZIP Code Phon e Number [facility] [address] LABS (ABNORMAL) Hemoglobin (02/03/2014 1:18 AM CDT) athologist Signature Hemoglobin 9.8 (L) 13.3 - 17.7 [facility] g/dL [place] LABS Specimen Anatomical Collection Method Collection Time Receive d Time (Source) Location / / Volume Laterality Blood specimen 02/03/2014 1:18 AM 014 1:20 (specimen) CDT AM CDT Caitlin Owens MD LAB - BLOOD ORDERABLES Performing Organization Address City/[facility]/ZIP Code Phon e Number [address] LABS (ABNORMAL) Glucose by meter (02/03/2014 [...] CDT 12:15 AM CDT Migel Merchant MD [facility] POCT Performing Organization Address City/State/ZIP [...] athologist Signature Phosphorus 4.4 2.5 - 4.5 [facility] mg/dL CAMPUS LABS Specimen Anatomical Collection Method Collection Time Receive d Time (Source) Location / / Volume Laterality Blood specimen 02/02/2014 10:50 4 (specimen) PM CDT 11:06 PM CDT Caitlin Owens MD LAB - BLOOD ORDERABLES Performing Organization Address City/[facility]/ZIP Code Phon e Number [facility] [address] LABS Magnesium (02/02/2014 10:50 PM CDT) athologist Signature Magnesium 1.8 1.6 - 2.3 [facility] mg/dL [place] LABS Specimen Anatomical Collection Method Collection Time Receive d Time (Source) Location / / Volume Laterality Blood specimen 02/02/2014 10:50 4 (specimen) PM CDT 11:06 PM CDT Caitlin Owens MD LAB - BLOOD ORDERABLES Performing Organization Address City/[facility]/ZIP Code Phon e Number [facility] [address] LABS (ABNORMAL) Basic metabolic panel (02/02/2014 10:50 PM CDT) [facility] gist Method Time Signature Sodium 138 133 - 144 [facility] mmol/L [facility] LABS Potassium 4.5 3.4 - 5.3 [facility] mmol/L [facility] LABS Chloride 104 94 - 109 [facility] mmol/L [facility] LABS Carbon Dioxide 25 20 - 32 [facility] mmol/L [facility] LABS Anion Gap 10 6 - 17 [facility] mmol/L [facility] LABS Glucose 134 (H) 60 - 99 [facility] mg/dL [facility] LABS Urea Nitrogen 44 (H) 7 - 30 [facility] mg/dL [facility] LABS Creatinine 6.14 (H) 0.66 - [facility] 1.25 mg/dL [facility] LABS GFR Estimate 9 (L) >60 [facility] mL/min/1.[address] LABS GFR Estimate If 11 (L) >60 [facility] Black mL/min/1.7 [place] [address] CAMPUS LABS Calcium 8.8 8.5 - 10.4 [facility] mg/dL [facility] LABS Specimen Anatomical Collection Method Collection Time Receive d Time (Source) Location / / Volume Laterality Blood specimen 02/02/2014 10:50 4 (specimen) PM CDT 11:06 PM CDT Caitlin Owens MD LAB - BLOOD ORDERABLES Performing Organization Address City/State/ZIP Code Phon e Number [address] LABS (ABNORMAL) CBC with platelets differential (02/02/2014 10:50 PM CDT) [facility] gist Method Time Signature WBC 8.2 4.0 - [facility] 11.0 [facility] 10e9/L [place] LABS RBC Count 3.34 (L) 4.4 - 5.9 [facility] 10e12/L [facility] LABS Hemoglobin 10.3 (L) 13.3 - [facility] 17.7 g/dL [facility] LABS Hematocrit 30.9 (L) 40.0 - [facility] 53.0 % [facility] LABS MCV 93 78 - 100 [facility] fl [facility] LABS MCH 30.8 26.5 - [facility] 33.0 pg [facility] LABS MCHC 33.3 31.5 - [facility] 36.5 g/dL [facility] LABS RDW 14.3 10.0 - [facility] 15.0 % [facility] LABS Platelet Count 79 (L) 150 - 450 [facility] 10e9/L [facility] LABS Diff Method Automated [facility] Method [facility] LABS % Neutrophils 96.7 % [facility] LABS % Lymphocytes 1.6 % [facility] LABS % Monocytes 1.2 % [facility] % Eosinophils 0.4 % [facility] LABS % Basophils 0.0 % [facility] LABS % Immature 0.1 % [facility] Granulocytes [facility] LABS Absolute 7.9 1.6 - 8.3 [facility] Neutrophil 10e9/L [facility] LABS Absolute 0.1 (L) 0.8 - 5.3 [facility] Lymphocytes 10e9/L [facility] LABS Absolute 0.1 0.0 - 1.3 [facility] Monocytes 10e9/L [facility] LABS Absolute 0.0 0.0 - 0.7 [facility] Eosinophils 10e9/L [facility] LABS Absolute 0.0 0.0 - 0.2 [facility] Basophils 10e9/L [facility] LABS Abs Immature 0.0 0 - 0.4 [facility] Granulocytes 10e9/L [facility] LABS Specimen Anatomical Collection Method Collection Time Receive d Time (Source) Location / / Volume Laterality Blood specimen 02/02/2014 10:50 4 (specimen) PM CDT 11:06 PM CDT Caitlin Owens MD LAB - BLOOD ORDERABLES Performing Organization Address City/State/ZIP Code Phon e Number [facility] [address] [place], [place] [id number] [place] [address] LABS (ABNORMAL) VENOUS PANEL (02/02/2014 10:09 PM CDT) [facility] gist Method Time Signature Ph Venous 7.31 (L) 7.32 - [facility] 7.43 pH [facility] LABS PCO2 Venous 52 (H) 40 - 50 [facility] mm Hg [facility] LABS PO2 Venous 34 25 - 47 [facility] mm Hg [facility] LABS Bicarbonate 26 21 - 28 [facility] Venous mmol/L [facility] LABS Base Deficit 0.3 mmol/L [facility] Venous [facility] LABS Comment: Reference range: -7.7 to 1.9 FIO2 45 [facility] LABS Sodium 137 133 - 144 mmol/L [facility] LABS Potassium 4.4 3.4 - 5.3 mmol/L [facility] LABS Hemoglobin 10.0 (L) 13.3 - 17.7 g/dL [facility] LABS Glucose 116 (H) 60 - 99 mg/dL [facility] LABS Calcium Ionized Whole Blood 4.8 4.4 - 5.2 mg/dL [facility] LABS Specimen Anatomical Collection Method Collection Time Receive d Time (Source) Location / / Volume Laterality 02/02/2014 10:09 02/02/2014 PM CDT 10:14 PM CDT Migel Nathan Finger MD LAB - BLOOD ORDERABLES Performing Organization Address City/State/ZIP Code Phon e Number [address] [address] [facility] LABS (ABNORMAL) Glucose by meter (02/02/2014 [...] Venous 7.35 7.32 - [facility] 7.43 pH [facility] LABS PCO2 Venous 50 40 - 50 mm [facility] Hg [facility] LABS PO2 Venous 46 25 - 47 mm [facility] Hg [facility] LABS Bicarbonate 28 21 - 28 [facility] Venous mmol/L [facility] LABS Base Excess 1.8 mmol/L [facility] Venous [facility] LABS Comment: Reference range: -7.7 to 1.9 FIO2 100% [facility] LABS Sodium 141 133 - 144 mmol/L [facility] LABS Potassium 3.7 3.4 - 5.3 mmol/L [facility] LABS Hemoglobin 10.3 (L) 13.3 - 17.7 g/dL [facility] LABS Glucose 76 60 - 99 mg/dL [facility] LABS Calcium Ionized Whole Blood 4.8 4.4 - 5.2 mg/dL [facility] LABS Specimen Anatomical Collection Method Collection Time Receive d Time (Source) Location / / Volume Laterality 02/02/2014 6:40 PM 4 6:44 CDT PM CDT Migel Merchant MD LAB - BLOOD ORDERABLES Performing Organization Address City/[facility]/ZIP Code Phon e Number [facility] [address] [place] [address] [facility] LABS Glucose by meter (02/02/2014 5:11 PM CDT) P athologist Signature Glucose 89 60 - 99 POINT OF CARE mg/dL TEST, GLUCOSE Specimen Anatomical Collection Method Collection Time Receive d Time (Source) Location / / Volume Laterality 02/02/2014 5:11 PM 4 5:15 CDT PM CDT Migel LARES - BEAJ POCT Performing Organization Address City/[facility] Phon e Number FV POINT OF CARE [...] LARES - BEAKER POCT Performing Organization Address [facility] Phon e Number FV POINT OF CARE [...] MARYELLEN Blood component (02/02/2014 2:07 PM CDT) Fishin' Glue Method Time Signature Unit Number [id number] [facility] LABS Blood Red Blood [facility] Component Cells [facility] LABS Reduced Division 00 [facility] LABS Status of No longer [place] Unit available [facility] 02/06/2014 HOSPITAL LAB 0300 Specimen Anatomical Collection Method Collection Time Receive d Time (Source) Location / / Volume Laterality 02/02/2014 2:07 PM 4 2:10 CDT PM CDT Caitlin Owens MD LABORATORY Performing Organization Address City/State/ZIP Code [facility] e Number M [address] [facility] LABS [facility] LAB Blood component (02/02/2014 2:07 PM CDT) Fishin' Glue Method Time Signature Unit Number [id number] [facility] LABS Blood Red Blood [facility] Component Cells [facility] LABS Reduced Division 00 [facility] LABS Status of No longer [facility] Unit available [facility] 02/06/2014 HOSPITAL LAB 0300 Specimen Anatomical Collection Method Collection Time Receive d Time (Source) Location / / Volume Laterality 02/02/2014 2:07 PM 4 2:10 CDT PM CDT Caitlin Owens MD LABORATORY Performing Organization Address City/State/ZIP Code Phon e Number [facility] [address] [place], [place] [address] HOSPITAL [facility] LABS [facility] LAB ABO/Rh type and screen (02/02/2014 2:07 PM CDT) Patholo gist Method Time Signature Units Ordered 2 [facility] LABS ABO A [facility] LABS RH(D) Pos [facility] LABS Antibody Neg [facility] Screen [facility] LABS Test Valid [facility] Only At [facility] BLOOD BANK Center,[place] LAB w Hospital Specimen 02/05/2014 [facility] B[facility] LAB Crossmatch Red Blood [facility] Cells [facility] LABS Specimen Anatomical Collection Method Collection Time Receive d Time (Source) Location / / Volume Laterality Blood specimen 02/02/2014 2:07 PM 014 2:10 (specimen) CDT PM CDT Caitlin Owens MD LAB - BLOOD BANK TEST ORDER Performing Organization Address City/State/ZIP Code Phon e Number [facility] [address] [place] [address] [facility] LABS [facility] BLOOD BANK LAB (ABNORMAL) Lipid Profile (02/02/2014 2:07 PM CDT) P athologist Signature Cholesterol 135 <200 mg/dL [facility] LABS Comment: LDL Cholesterol is the primary guide to therapy. The NCEP recommends further evaluation of: patients with cholesterol greater than 200 mg/dL if additional risk facto rs are present, cholesterol greater than 240 mg/dL, triglycerides greater than 1 50 mg/dL, or HDL less than 40 mg/dL. Triglycerides 124 0 - 150 mg/dL [facility] LABS HDL Cholesterol 34 (L) >40 mg/dL [facility] LABS LDL Cholesterol Calculated 77 0 - 129 mg/dL [facility] LABS Comment: LDL Cholesterol is the primary guide to therapy: LDL-cholesterol goal in high risk patients is <100 mg/dL and in very high risk patients is <70 mg/dL. VLDL-Cholesterol 25 0 - 30 mg/dL [facility] LABS Cholesterol/HDL Ratio 4.0 0.0 - 5.0 [facility] LABS Specimen Anatomical Collection Method Collection Time Receive d Time (Source) Location / / Volume Laterality Blood specimen 02/02/2014 2:07 PM 014 2:08 (specimen) CDT PM CDT Caitlin Owens MD LAB - BLOOD ORDERABLES Performing Organization Address City/[facility]/ZIP Code Phon e Number [facility] [address] LABS (ABNORMAL) Hemoglobin A1c (02/02/2014 2:07 PM CDT) Analysis Performed At Patho logist Time Signature Hemoglobin A1C 6.2 (H) 4.3 - 6.0 [facility] LABS Specimen Anatomical Collection Method Collection Time Receive d Time (Source) Location / / Volume Laterality Blood specimen 02/02/2014 2:07 PM 014 2:08 (specimen) CDT PM CDT Caitlin Owens MD LAB - BLOOD ORDERABLES Performing Organization Address City/[facility]/ZIP Code Phon e Number [facility] [address] LABS Hepatitis C antibody (02/02/2014 2:07 PM CDT) Patholo gist Method Time Signature Hepatitis C Negative NEG [facility] Antibody MICROBIOLOGY Specimen Anatomical Collection Method Collection Time Receive d Time (Source) Location / / Volume Laterality Blood specimen 02/02/2014 2:07 PM 014 2:08 (specimen) CDT PM CDT Caitlin Owens MD LAB - BLOOD ORDERABLES Performing Organization Address City/[facility]/ZIP Code Phon e Number [facility] [address] MICROBIOLOGY Hepatitis B core antibody IgM [...] e Number [facility] 500 [place], [place] [id number] [place] [address] MICROBIOLOGY Hepatitis B surface antigen (02/02/2014 2:07 PM CDT) [facility] Signature Hep B Surface Negative NEG [facility] Agn MICROBIOLOGY Specimen Anatomical Collection Method Collection Time Receive d Time (Source) Location / / Volume Laterality Blood specimen 02/02/2014 2:07 PM 014 2:08 (specimen) CDT PM CDT Caitlin Owens MD LAB - BLOOD ORDERABLES Performing Organization Address City/State/ZIP Code Phon e Number [facility] [address] [place], [place] [id number] [place] [address] MICROBIOLOGY HIV Antigen Antibody Combo (02/02/2014 2:07 PM CDT) [facility] Signature HIV Antigen Nonreactive NR [facility] Antibody HIV-1 p24 Ag & HIV-1/HIV-2 Ab Not Detected [facility] LABS Specimen Anatomical Collection Method Collection Time Receive d Time (Source) Location / / Volume Laterality Blood specimen 02/02/2014 2:07 PM 014 2:08 (specimen) CDT PM CDT Caitlin Owens MD LAB - BLOOD ORDERABLES Performing Organization Address City/State/ZIP Code Phon e Number [address] LABS EBV Capsid Antibody IgM (02/02/2014 2:07 PM CDT) [facility] Signature EBV Capsid <0.2 0.0 - 0.8 [facility] Antibody IgM No detectable antibody. AI [facility] LAB[facility] Specimen Anatomical Collection Method Collection Time Receive d Time (Source) Location / / Volume Laterality Blood specimen 02/02/2014 2:07 PM 014 2:08 (specimen) CDT PM CDT Caitlin Owens MD LAB - BLOOD ORDERABLES Performing Organization Address City/[facility]/ZIP Code Phon e Number [address] LABS (ABNORMAL) EBV Capsid Antibody IgG (02/02/2014 2:07 PM CDT) [facility] Signature EBV Capsid >8.0 0.0 - 0.8 [facility] Antibody IgG Positive, suggests recent or past exposure [facility] (H) [place] LABS Specimen Anatomical Collection Method Collection Time Receive d Time (Source) Location / / Volume Laterality Blood specimen 02/02/2014 2:07 PM 014 2:08 (specimen) CDT PM CDT Caitlin Owens MD LAB - BLOOD ORDERABLES Performing Organization Address City/[facility]/ZIP Code Phon e Number [facility] [address] LABS CMV antibody IgM (02/02/2014 2:07 PM CDT) Analysis Performed At Patho logist Time Signature CMV Antibody <0.2 0.0 - 0.8 [facility] IgM Negative [facility] LABS Specimen Anatomical Collection Method Collection Time Receive d Time (Source) Location / / Volume Laterality Blood specimen 02/02/2014 2:07 PM 014 2:08 (specimen) CDT PM CDT Caitlin Owens MD LAB - BLOOD ORDERABLES Performing Organization Address City/[facility]/ZIP Code Phon e Number [facility] [address] LABS (ABNORMAL) CMV Antibody IgG (02/02/2014 2:07 PM CDT) P athologist Signature CMV Antibody 7.8 (H) 0.0 - 0.8 [facility] IgG [facility] LABS Comment: Positive Specimen Anatomical Collection Method Collection Time Receive d Time (Source) Location / / Volume Laterality Blood specimen 02/02/2014 2:07 PM 014 2:08 (specimen) CDT PM CDT Caitlin Owens MD LAB - BLOOD ORDERABLES Performing Organization Address City/[facility]/ZIP Code Phon e Number [facility] [address] LABS (ABNORMAL) Comprehensive metabolic panel (02/02/2014 2:07 PM CDT) Patholo gist Method Time Signature Sodium 141 133 - 144 [facility] mmol/L [facility] LABS Potassium 4.2 3.4 - 5.3 [facility] mmol/L [facility] LABS Chloride 101 94 - 109 [facility] mmol/L [facility] LABS Carbon Dioxide 26 20 - 32 [facility] mmol/L [facility] LAB[facility] Anion Gap 13 6 - 17 [facility] mmol/L [facility] LABS Glucose 112 (H) 60 - 99 [facility] mg/dL [facility] LABS Urea Nitrogen 42 (H) 7 - 30 [facility] mg/dL [place] [facility] LABS Creatinine 6.03 (H) 0.66 - [facility] 1.25 [facility] mg/dL CAMPUS LABS GFR Estimate 9 (L) >60 [facility] mL/min/1. [place] 7m2 CAMPUS LABS GFR Estimate If 11 (L) >60 [facility] Black mL/min/1. [place] 7 CAMPUS LABS Calcium 9.9 8.5 - [facility] 10.4 [place] mg/dL CAMPUS LABS Bilirubin Total 0.7 0.2 - 1.3 [facility] mg/dL [place] [facility] LABS Albumin 4.2 3.3 - 4.9 [facility] g/dL [facility] LABS Protein Total 7.5 6.8 - 8.8 [facility] g/dL [facility] LABS Alkaline 88 40 - 150 [facility] Phosphatase U/L [facility] LABS ALT 33 0 - 70 [facility] U/L [facility] LABS AST 18 0 - 45 [facility] U/L [facility] LABS Specimen Anatomical Collection Method Collection Time Receive d Time (Source) Location / / Volume Laterality Blood specimen 02/02/2014 2:07 PM 014 2:08 (specimen) CDT PM CDT Caitlin Owens MD LAB - BLOOD ORDERABLES Performing Organization Address City/State/ZIP Code Phon e Number [phone] [place] [address] LABS (ABNORMAL) CBC with platelets differential (02/02/2014 2:07 PM CDT) [facility] gist Method Time Signature WBC 6.3 4.0 - [facility] 11.0 [place] 10e9/L [place] LABS RBC Count 3.71 (L) 4.4 - 5.9 [facility] 10e12/L [facility] Hemoglobin 11.5 (L) 13.3 - [facility] 17.7 g/dL [facility] Hematocrit 33.7 (L) 40.0 - [facility] 53.0 % [facility] MCV 91 78 - 100 [facility] fl [facility] MCH 31.0 26.5 - [facility] 33.0 pg [facility] MCHC 34.1 31.5 - [facility] 36.5 g/dL [facility] RDW 14.0 10.0 - [facility] 15.0 % [facility] Platelet Count 110 (L) 150 - 450 [facility] 10e9/L [facility] Diff Method Automated [facility] Method [facility] % Neutrophils 52.4 % [facility] % Lymphocytes 32.1 % [facility] % Monocytes 7.9 % [facility] % Eosinophils 7.1 % [facility] % Basophils 0.3 % [facility] % Immature 0.2 % [facility] Granulocytes [facility] Absolute 3.3 1.6 - 8.3 [facility] Neutrophil 10e9/L [facility] Absolute 2.0 0.8 - 5.3 [facility] Lymphocytes 10e9/L [facility] Absolute 0.5 0.0 - 1.3 [facility] Monocytes 10e9/L [facility] Absolute 0.5 0.0 - 0.7 [facility] Eosinophils 10e9/L [facility] Absolute 0.0 0.0 - 0.2 [facility] Basophils 10e9/L [facility] Abs Immature 0.0 0 - 0.4 [facility] Granulocytes 10e9/L [facility] Specimen Anatomical Collection Method Collection Time Receive d Time (Source) Location / / Volume Laterality Blood specimen 02/02/2014 2:07 PM 014 2:08 (specimen) CDT PM CDT Caitlin Owens MD LAB - BLOOD ORDERABLES Performing Organization Address City/[facility] Phon e Number [address] LABS Creatinine urine calculation only (02/02/2014 2:00 PM CDT) P athologist Signature Creatinine 88 mg/dL [facility] Urine [place] [facility] Specimen Anatomical Collection Method Collection Time Receive d Time (Source) Location / / Volume Laterality 02/02/2014 2:00 PM 4 2:12 CDT PM CDT Caitlin Owens MD LAB - URINE ORDERABLES Performing Organization Address City/[facility] Code Phon e Number [address] LABS (ABNORMAL) Urine culture (02/02/2014 2:00 PM CDT) Component Value Ref Test Analysis Performed At Patholo gist Range Method Time Signature Specimen Midstream Urine [facility] Description [facility] Special Specimen received [facility] Requests in preservative MICROBIOLOGY Culture Micro <10,000 colonies/mL Gram pos itive cocci No further identification Susceptibility [facility] testing not routinely done ND CROBIOLOGY <10,000 colonies/mL Strain 2 Gram positive [...] MICRO GENERAL ORDERABL ES Performing Organization Address City/[facility]/ZIP Code Phon e Number [address] LABS [facility] MICROBIOLOGY (ABNORMAL) Protein random urine (02/02/2014 2:00 PM CDT) [facility] Method Time Signature Protein Random 1.89 g/L [facility] Urine [facility] Protein Total 2.15 (H) 0 - 0.2 [facility] Urine g/gr g/g Cr [facility]S Specimen Anatomical Collection Method Collection Time Receive d Time (Source) Location / / Volume Laterality Urine specimen URINE SPECIMEN 02/02/2014 2:00 PM 02/02 2:12 (specimen) OBTAINED BY CLEAN CDT PM CDT CATCH PROCEDURE / Unknown Caitlin Owens MD LAB - URINE ORDERABLES Performing Organization Address City/[facility] Code Phon e Number [address] LABS (ABNORMAL) Routine UA with microscopic (02/02/2014 2:00 PM CDT) [facility] [employer] Method Time Signature Color Urine Light Yellow [facility] Appearance Urine Clear [facility] Glucose Urine 70 (A) NEG mg/dL [facility] Bilirubin Urine Negative NEG [facility] Ketones Urine Negative NEG mg/dL [facility] Specific [place] 1.008 1.003 - [facility] Urine 1.035 [facility] Blood Urine Negative NEG [facility] pH Urine 8.0 (H) 5.0 - 7.0 [facility] pH [facility] Protein Albumin 100 (A) NEG mg/dL [facility] Urine [facility] Urobilinogen Normal 0.0 - 2.0 [facility] mg/dL mg/dL [facility] Nitrite Urine Negative NEG [facility] Leukocyte Negative NEG [facility] Esterase Urine [facility] Source Clean catch [facility] urine [facility] WBC Urine 1 0 - 2 [facility] /HPF [facility] RBC Urine 0 0 - 2 [facility] /HPF [facility] Squamous <1 0 - 1 [facility] Epithelial /HPF /HPF [place] Urine [place] [facility] Specimen Anatomical Collection Method Collection Time Receive d Time (Source) Location / / Volume Laterality Urine specimen URINE SPECIMEN 02/02/2014 2:00 PM 02/02 2:12 (specimen) OBTAINED BY CLEAN CDT PM CDT CATCH PROCEDURE / Unknown Caitlin Owens MD LAB - URINE ORDERABLES Performing Organization Address City/State/ZIP Code Phon e Number [id number] [place] [address] LABS (ABNORMAL) Glucose by meter (02/02/2014 1:59 PM CDT) athologist Signature Glucose 115 (H) 60 - 99 POINT OF CARE mg/dL TEST, GLUCOSE Specimen Anatomical Collection Method Collection Time Receive d Time (Source) Location / / Volume Laterality 02/02/2014 1:59 PM 4 2:05 CDT PM CDT Migel Merchant MD LAB - BEAKER POCT Performing Organization Address City/[facility]/ZIP Code Phon e Number [facility] POINT OF CARE TEST, GLUCOSE POINT OF CARE TEST, GLUCOSE EKG 12-lead, tracing only (02/02/2014 1:58 PM CDT) [facility] gist Method Time Signature Interpretation [...] dose, When verbally ordered by the prescriber. [place] throat with 1-4 sprays 5 minutes prior [...] isael - Provider: Lynne Gatica [facility] - Reason: Other - Comment: [...] draw. documented in this encounter Care Teams Therapy Site Coordinator Relationship Specialty Start Date End Date Momo Forbes PCP - General Family Practice 01/02/14 [place] [id number] Ingrid Santana, RN Registered Nurse Transplant 02/10/12 documented as of this encounter
--- OUTSIDE RECORDS SUMMARY | 2022-05-24 11:56 | XMS_ITS | Encounter Summary ---
:1950 Author Organization [place] Address [address] [place] [address]. [place] [address] Care Team Providers Name Role Phone Toña [...] - HIM SCAN - 09/25/2012 8:26 AM MGMT CONSULTANT ARCHIVE documented in this encounter Results LAB RESULT - HIM SCAN - ARCHIVE (09/25/2012 8:26 AM MGMT CONSULTANT) Specimen (Source) Anatomical Location Collection Method / Collectio n Time Received Time / Laterality Volume Narrative This result has an attachment that is no t available. Marcela Cordero MD LAB - BLOOD ORDERABLES documented in this encounter Visit Diagnoses Not on filedocumented in this encounter Care Teams Wrapping Machine Operator Relationship Specialty Start Date End Date Toña Jones MD PCP - General Nephrology 11/25/11 01/01/14 Momo Forbes PCP - General Family Practice 01/02/14 [facility] [address] [place] [address] Ingrid Santana, RN Registered Nurse Transplant 02/10/12 documented as of this encounter
--- OUTSIDE RECORDS SUMMARY | 2022-05-24 11:56 | XMS_ITS | Encounter Summary ---
:1950 Author Organization [place] Address [address] [place] [address] Care Team Providers Name Role Phone Toña Jones MD Primary Care Provider Ingrid Santana RN Unavailable Unavailable Encounter Details Date Type Department Care Team Description 07/30/2013 Results Only LABORATORY RESULTS Mingo Dangelo MD [address] [facility] [address] [place] [address] (Wo rk) Social History Tobacco [...] HLA Lukasz Class II Single Antigen (07/30/2013) [facility] gist Method Time Signature SA2 [...] / Volume Laterality 07/30/2013 07/31/2013 2:10 PM MASTER DYER Mingo Dangelo MD LAB - IMMUNOLOGY ORDERABLES Performing Organization Address City/State/ZIP Code Phon e Number [facility] Immunology/Histocompatabil [place], [place] [address] ity [facility] [address] [facility] [address] Building, Room 3-580 HISTOTRAC documented in this encounter Visit Diagnoses Not on filedocumented in this encounter Care Teams Light Cleaner Relationship Specialty Start Date End Date Toña Jones MD PCP - General Nephrology 11/25/11 01/01/14 Ingrid Santana RN Registered Nurse Transplant 02/10/12 documented as of this encounter
--- OUTSIDE RECORDS SUMMARY | 2022-05-24 11:57 | XMS_ITS | Encounter Summary ---
:1950 Author Organization [place] Address [address] [place] [address] Care Team Providers Name Role Phone Toña Jones MD Primary Care Provider Ingrid Santana RN Unavailable Unavailable Encounter Details Date Type Department Care Team Description 02/08/2012 Results Only LABORATORY RESULTS Jeff Joshi MD [address] [facility] [address] [place] [address] (Wo rk) Social History Tobacco [...] I Single Antigen (02/08/2012 7:07 AM CDT) [facility] Method Time Signature SA1 Test Single [...] Phon e Number [facility] Immunology/Histocompatabil [place], [place] [address] ity [facility] [address], Room 3-580 HISTOTRAC documented in this encounter Visit Diagnoses Not on filedocumented in this encounter Care Teams Exit Booth Agent Relationship Specialty Start Date End Date Toña Jones MD PCP - General Nephrology 11/25/11 01/01/14 Ingrid Santana RN Registered Nurse Transplant 02/10/12 documented as of this encounter
--- OUTSIDE RECORDS SUMMARY | 2022-05-24 11:57 | XMS_ITS | Encounter Summary ---
:1950 Author Organization [place] Address [address] [place] [address] Care Team Providers Name Role Phone Toña Jones MD Primary Care Provider Ingrid Santana RN Unavailable Unavailable Encounter Details Date Type Department Care Team Description 02/08/2012 Orders Only [facility] Jesus Cardenas Di abetes mellitus, type 2 (H); [facility] Gordo oneal MD End stage renal disease (H); [address] [place] [address] Social History Tobacco Use Types Packs/Day Years [...] Results ABO type (02/08/2012 1:52 PM CDT) [facility] Method Time Signature ABO A [facility] RH(D) Pos [facility] Specimen 02/11/2012 [facility] Expires [facility] Specimen Anatomical Collection Method Collection Time Receive d Time (Source) Location / / Volume Laterality Blood specimen 02/08/2012 1:52 PM 012 1:54 (specimen) CDT PM CDT hCucho Joshi MD LAB - BLOOD BANK TEST ORDER Performing Organization Address City/[facility]/ZIP Code Phon e Number [id number] [place] [address] LABS EKG 12-lead, tracing only (02/08/2012 7:30 AM CDT) [facility] [employer] Method Time Signature Ventricular Rate 60 BPM RADIOLOGY RESULTS Atrial Rate 60 BPM RADIOLOGY RESULTS MT Interval 186 ms RADIOLOGY RESULTS QRS Duration 104 ms RADIOLOGY RESULTS QT 440 ms RADIOLOGY RESULTS QTc 440 ms RADIOLOGY RESULTS P [place] 36 degrees RADIOLOGY RESULTS R AXIS 0 degrees RADIOLOGY RESULTS T [place] 36 degrees RADIOLOGY RESULTS Interpretation Sinus rhythm [...] DEFINED documented in this encounter Care Teams Cutter And Presser Relationship Specialty Start Date End Date Toña Jones MD PCP - General Nephrology 11/25/11 01/01/14 Ingrid Santana, RN Registered Nurse Transplant 02/10/12 documented as of this encounter
--- OUTSIDE RECORDS SUMMARY | 2022-05-24 11:57 | XMS_ITS | Encounter Summary ---
:1950 Author Organization [place] Address [facility] [place] [address] Care Team Providers Name Role Phone Toña [...] 2 (H) Tommy Wilburn (Primar y Dx) [address] [phone] Social History Tobacco Use Types Packs/Day Years [...] this time. Patient to follow up with community engagement coordinator. documented in this encounter Plan of Treatment Not on filedocumented as of this encounter Visit Diagnoses Diagnosis DM (diabetes mellitus), type 2 (H) - Ana ashley Type II or unspecified type diabetes aung litus without mention of complication, not stated as uncontrolled documented in this encounter Care Teams Subcontracts Manager Relationship Specialty Start Date End Date Toña Jones MD PCP - General Nephrology 11/25/11 01/01/14 Ingrid Santana RN Registered Nurse Transplant 02/10/12 documented as of this encounter
--- OUTSIDE RECORDS SUMMARY | 2022-05-24 11:57 | XMS_ITS | Encounter Summary ---
:1950 Author Organization [place] Address [address] [place] [address] Care Team Providers Name Role Phone Toña Jones MD Primary Care Provider Ingrid Santana RN Unavailable Unavailable Reason for Visit (Routine) - Closed Specialty Diagnoses / Procedures Referred By Contact Refer red To Contact Radiology Diagnoses NM MPI L[facility] Procedure Notes: UNSPECIFIED ESSENTIAL HYPERTENSION,PREOPERATIVE EXAMINATION, UNSPECIFIED, [facility] Nuclear Medicine Procedures RADIOLOGY [address] [place] [address] Phone: Referral ID Status Reason Start Date Expiration Date Visits Requ ested Visits Authorized [id number] Closed 02/11/2012 02/10/2013 1 1 Encounter Details Date Type Department Care Team Description 02/15/2012 Hospital Encounter [facility] Barbara Bradley Imaging MD Monae [address] [facility] [address] [place], [place] [address] [phone] Social History Tobacco Use Types Packs/Day Years [...] tablet by mouth 0 02/18/2014 daily. B lsehlts-E-pxnig acid Take 1 capsule by mouth 0 [...] on filedocumented in this encounter Care Teams Hyperbaric Technologist Relationship Specialty Start Date End Date Toña Jones MD PCP - General Nephrology 11/25/11 01/01/14 Ingrid Santana, RN Registered Nurse Transplant 02/10/12 documented as of this encounter
--- OUTSIDE RECORDS SUMMARY | 2022-05-24 11:57 | XMS_ITS | Encounter Summary ---
:1950 Author Organization [place] Address [address] [place] [address] Care Team Providers Name Role Phone Toña Jones MD Primary Care Provider Ingrid Santana RN Unavailable Unavailable Encounter Details Date Type Department Care Team Description 02/08/2012 Results Only LABORATORY RESULTS Jeff [facility]hi MD [facility] [facility] [address] [place] [address] (Wo rk) Social History Tobacco [...] Phon e Number [facility] Immunology/Histocompatabil [place], [place] [address] ity [facility] C[facility] [address] [facility] [address] Building, Room 3-580 HISTOTRAC documented in this encounter Visit Diagnoses Not on filedocumented in this encounter Care Teams Pit Inspector Relationship Specialty Start Date End Date Toña Jones MD PCP - General Nephrology 11/25/11 01/01/14 Ingrid Santana RN Registered Nurse Transplant 02/10/12 documented as of this encounter
--- OUTSIDE RECORDS SUMMARY | 2022-05-24 11:57 | XMS_ITS | Encounter Summary ---
:1950 Author Organization [place] Address [address] [facility] [place] [address] Care Team Providers Name Role Phone Toña Jones MD Primary Care Provider Ingrid Santana RN Unavailable Unavailable Reason for Visit (Routine) - Closed Specialty Diagnoses / Procedures Referred By Contact Refer red To Contact Cardiology Diagnoses NM STRESS [facility] Procedure Notes: UNSPECIFIED ESSENTIAL HYPERTENSION,PREOPERATIVE EXAMINATION, UNSPECIFIED, Zz [facility] Electrocard Procedures RADIOLOGY [address] [place] [address] Referral ID Status Reason Start Date Expiration Date Visits Requ ested Visits Authorized [id number] Closed 02/11/2012 02/10/2013 1 1 Encounter Details Date Type Department Care Team Description 02/15/2012 Hospital Encounter [facility]ROC[facility] Barbara Bradley [address] [facility] [place] [place] [address] [address] [place], [place] [address] Social History Tobacco Use [...] tablet by mouth 0 02/18/2014 daily. B quleumm-B-voxxu acid Take 1 capsule by mouth 0 [...] Test documented in this encounter Care Teams New Account Interviewer Relationship Specialty Start Date End Date Toña Jones MD PCP - General Nephrology 11/25/11 01/01/14 Ingrid Santana, RN Registered Nurse Transplant 02/10/12 documented as of this encounter
--- OUTSIDE RECORDS SUMMARY | 2022-05-24 11:57 | XMS_ITS | Encounter Summary ---
:1950 Author Organization [place] Address [address] [place] [address] Care Team Providers Name Role Phone Toña Jones MD Primary Care Provider Ingrid Santana RN Unavailable Unavailable Encounter Details Date Type Department Care Team Description 04/13/2012 Results Only LABORATORY RESULTS Mingo Dangelo MD [address] [facility] [address] [place] [address] (Wo rk) Social History Tobacco [...] HLA Lukasz Class II Single Antigen (04/13/2012) [facility] gist Method Time Signature SA2 Test [...] Phon e Number [facility] Immunology/Histocompatabil [place], [place] [address] ity [facility] [address] [facility] [address] Building, Room 3-580 HISTOTRAC documented in this encounter Visit Diagnoses Not on filedocumented in this encounter Care Teams Ecommerce Analyst Relationship Specialty Start Date End Date Toña Jones MD PCP - General Nephrology 11/25/11 01/01/14 Ingrid Santana RN Registered Nurse Transplant 02/10/12 documented as of this encounter
--- OUTSIDE RECORDS SUMMARY | 2022-05-24 11:57 | XMS_ITS | Encounter Summary ---
:1950 Author Organization [place] Address [address] [place] [address] Care Team Providers Name Role Phone Toña Jones MD Primary Care Provider Ingrid Santana RN Unavailable Unavailable Encounter Details Date Type Department Care Team Description 02/10/2012 Hospital Encounter [facility] Jesus Cardenas MD Nutrition Services Martina Harley, RD [address] [facility] [address] [place] [address] 420 [facility] Joseph Quintana MD [address] [facility] [address] [facility] [address] [place] [address] [address] [place] [address] Social History Tobacco Use Types Packs/Day Years [...] tablet by mouth 0 02/18/2014 daily. B tqfxdns-W-vmhvf acid Take 1 capsule by mouth 0 [...] Mcneill, RD - 02/10/2012 8:47 AM CDT [facility] Medical Nutrition Therapy Visit Type: [...] on filedocumented in this encounter Care Teams Frit Coater Relationship Specialty Start Date End Date Toña Jones MD PCP - General Nephrology 11/25/11 01/01/14 Ingrid Santana RN Registered Nurse Transplant 02/10/12 documented as of this encounter
--- OUTSIDE RECORDS SUMMARY | 2022-05-24 11:57 | XMS_ITS | Encounter Summary ---
:1950 Author Organization [place] Address [address] [facility] [place] [address] Care Team Providers Name Role Phone Toña Jones MD Primary Care Provider Encounter Details Date Type Department Care Team Description 02/08/2012 Hospital Encounter [facility] Jesus Cardenas MD Patient Learning Bobby Angela Leon, BOGDAN [address] [facility] [address] [place], [place] [phone] [place] [address] Social History Tobacco Use Types Packs/Day Years [...] tablet by mouth 0 02/18/2014 daily. B yagtzue-R-knptn acid Take 1 capsule by mouth 0 [...] on filedocumented in this encounter Care Teams Tactical Debriefer Officer Relationship Specialty Start Date End Date Toña Jones MD PCP - General Nephrology 11/25/11 01/01/14 documented as of this encounter
--- OUTSIDE RECORDS SUMMARY | 2022-05-24 11:57 | XMS_ITS | Encounter Summary ---
:1950 Author Organization [place] Address [address] [place] [address] Care Team Providers Name Role Phone Toña Jones MD Primary Care Provider Encounter Details Date Type Department Care Team Description 02/08/2012 Orders Only [facility] Thomas, Ty Blink, End sta ge kidney Pulmonary Function disease ( H) (Primary Laboratory Dx) 6th Floor [address] [place] [address] Social History Tobacco Use Types [...] Lab Testing (Generic) (02/08/2012 8:35 AM CDT) [facility] Method Time Signature Pulmonary COPATH Function Test Name: ? ELINOR GUTHRIE ? ID: ?[id number] Doctor: ?JESUS THOMAS ?Height: ?72.00 in ? [...] INTERPRETATION: The FVC, FEV1, FEV1/FVC ratio and GFB88-99% are within normal limits. ??The inspiratory flow [...] disease documented in this encounter Care Teams Barn Manager Relationship Specialty Start Date End Date Toña Jones MD PCP - General Nephrology 11/25/11 01/01/14 documented as of this encounter
--- OUTSIDE RECORDS SUMMARY | 2022-05-24 11:57 | XMS_ITS | Encounter Summary ---
:1950 Author Organization [place] Address [facility] 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 Mut Lab Routine Diabetes mellit us, type [...] Routine 02/08/2012 7:25 AM Diabetes jenniferi tus, [id number] MUT ANAL CDT type 2 (H) End [...] Tuberculosis by Quantiferon (02/08/2012 7:26 AM CDT) [facility] Method Time Signature M Tuberculosis Negative NEG [facility] Result [facility] LABS M Tuberculosis 0.01 IU/mL [facility] Antigen Value [facility] Comment: This is a qualitative [...] Phon e Number [facility] [address] [place], [place] [phone] [place] [address] [facility] LABS Antibody titer red cell (02/08/2012 7:26 AM CDT) [facility] Method Time Signature Antibody Titer Anti B [facility] titer IgM: [place] 4 Ig CAMPUS LABS Specimen Anatomical Collection Method Collection Time Receive d Time (Source) Location / / Volume Laterality Blood specimen 02/08/2012 7:26 AM 012 7:31 (specimen) CDT AM CDT Darian Joshi MD LAB - BLOOD BANK TEST ORDER Performing Organization Address City/State/ZIP Code Phon e Number [facility] [address] LABS Prostate spec antigen screen (02/08/2012 7:25 AM CDT) P athologist Signature PSA 0.44 0 - 4 ug/L [facility] LABS Comment: PSA results are [...] Phon e Number [facility] [address] LABS Hemoglobin A1c (02/08/2012 7:25 AM CDT) P athologist Signature Hemoglobin A1C 5.3 4.3 - 6.0 [facility] % [place] LABS Specimen Anatomical Collection Method Collection Time Receive d Time (Source) Location / / Volume Laterality Blood specimen 02/08/2012 7:25 AM 012 7:30 (specimen) CDT AM CDT Darian Joshi MD LAB - BLOOD ORDERABLES Performing Organization Address City/State/ZIP Code Phon e Number [facility] [address] [place], [place] [phone] [place] [address] LABS C-peptide (02/08/2012 7:25 AM CDT) athologist Signature C Peptide 5.3 0.9 - 6.9 [facility] ng/mL [place] LABS Specimen Anatomical Collection Method Collection Time Receive d Time (Source) Location / / Volume Laterality Blood specimen 02/08/2012 7:25 AM 012 7:30 (specimen) CDT AM CDT Darian Joshi MD LAB - BLOOD ORDERABLES Performing Organization Address City/State/ZIP Code Phon e Number [address] LABS Cardiolipin antibody IgG and IgM (02/08/2012 7:25 AM CDT) [facility] Method Time Signature Cardiolipin IgG <15.0 0 - 15.0 [facility] Shaye Interpretation: ??Negative GPL [facility] LABS Cardiolipin IgM <12.5 0 - 12.5 [facility] [place]aye Interpretation: ??Negative [facility] LABS Specimen Anatomical Collection Method Collection Time Receive d Time (Source) Location / / Volume Laterality Blood specimen 02/08/2012 7:25 AM 012 7:30 (specimen) CDT AM CDT Darian Joshi MD LAB - BLOOD ORDERABLES Performing Organization Address City/State/ZIP Code Phon e Number [phone] [place] [address] LABS (ABNORMAL) Comprehensive metabolic panel (02/08/2012 7:25 AM CDT) [facility] Method Time Signature Sodium 143 133 - 144 [facility] mmol/L [facility] LABS Potassium 4.4 3.4 - 5.3 [facility] mmol/L [facility] LABS Chloride 106 94 - 109 [facility] mmol/L [facility] LABS Carbon Dioxide 24 20 - 32 [facility] mmol/L [facility] LABS Anion Gap 13 6 - 17 [facility] mmol/L [facility] LABS Glucose 126 (H) 60 - 99 [facility] mg/dL [facility] LABS Urea Nitrogen 32 (H) 7 - 30 [facility] mg/dL [facility] LABS Creatinine 5.46 (H) 0.66 - [facility] 1.25 [place] mg/dL CAMPUS LABS GFR Estimate 11 (L) >60 [facility] mL/min/1. [address] LABS GFR Estimate If 13 (L) >60 [facility] Black mL/min/1. [address] LABS Calcium 8.5 8.5 - [facility] 10.4 [facility] mg/dL [place] LABS Bilirubin Total 0.8 0.2 - 1.3 [facility] mg/dL [facility] LABS Albumin 3.8 3.3 - 4.9 [facility] g/dL [facility] LABS Protein Total 6.8 6.8 - 8.8 [facility] g/dL [facility] LABS Alkaline 92 40 - 150 [facility] Phosphatase U/L [facility] LABS ALT 13 0 - 70 [facility] U/L [facility] LABS AST 18 0 - 45 [facility] U/L [facility] LABS Specimen Anatomical Collection Method Collection Time Receive d Time (Source) Location / / Volume Laterality Blood specimen 02/08/2012 7:25 AM 012 7:30 (specimen) CDT AM CDT Darian Joshi MD LAB - BLOOD ORDERABLES Performing Organization Address City/[facility]/ZIP Code Phon e Number [facility] [address] LABS Lipid Profile (02/08/2012 7:25 AM CDT) P athologist Signature Cholesterol 134 0 - 200 [facility] mg/dL [place] LABS Comment: LDL Cholesterol is the primary guide to therapy. The NCEP recommends further evaluation of: patients with cholesterol greater than 200 mg/dL if additional risk facto rs are present, cholesterol greater than 240 mg/dL, triglycerides greater than 1 50 mg/dL, or HDL less than 40 mg/dL. Triglycerides 74 0 - 150 mg/dL [facility] LABS HDL Cholesterol 42 40 - 110 mg/dL [facility] LABS LDL Cholesterol Calculated 77 0 - 129 mg/dL [facility] LABS Comment: LDL Cholesterol is the primary guide to therapy: LDL-cholesterol goal in high risk patients is <100 mg/dL and in very high risk patients is <70 mg/dL. VLDL-Cholesterol 15 0 - 30 mg/dL [facility] LABS Cholesterol/HDL Ratio 3.2 0.0 - 5.0 [facility] LAB[facility] Specimen Anatomical Collection Method Collection Time Receive d Time (Source) Location / / Volume Laterality Blood specimen 02/08/2012 7:25 AM 012 7:30 (specimen) CDT AM CDT Darian Joshi MD LAB - BLOOD ORDERABLES Performing Organization Address City/State/ZIP Code Phon e Number [facility] [address] [place] [address] [facility] LABS ABO/Rh type and screen (02/08/2012 7:25 AM CDT) Patholo gist Method Time Signature ABO A [facility] LABS RH(D) Pos [facility] LABS Antibody Neg [facility] Screen [facility] LABS Specimen 02/11/2012 [facility] Expires [facility] LABS Specimen Anatomical Collection Method Collection Time Receive d Time (Source) Location / / Volume Laterality Blood specimen 02/08/2012 7:25 AM 012 7:30 (specimen) CDT AM CDT Darian Joshi MD LAB - BLOOD BANK TEST ORDER Performing Organization Address City/[facility]/ZIP Code Phon e Number [facility] [address] LABS Varicella zoster antibody IgG (02/08/2012 7:25 AM CDT) Patholo gist Method Time Signature Varicella 1023.00 [facility] Zoster IgG [place] Immune Status CAMPUS LABS Ratio Vari Zoster Positive, [facility] IgG Interp suggests [place] prev. CAMPUS LABS exposure and probable immunity Specimen Anatomical Collection Method Collection Time Receive d Time (Source) Location / / Volume Laterality Blood specimen 02/08/2012 7:25 AM 012 7:30 (specimen) CDT AM CDT Darian Joshi MD LAB - BLOOD ORDERABLES Performing Organization Address City/[facility]/ZIP Code Phon e Number [facility] [address] LABS Anti treponema EIA (02/08/2012 7:25 AM CDT) Analysis Performed At Patho logist Time Signature Treponema Negative NEG [facility] Antibody [place] LABS Specimen Anatomical Collection Method Collection Time Receive d Time (Source) Location / / Volume Laterality Blood specimen 02/08/2012 7:25 AM 012 7:30 (specimen) CDT AM CDT Darina Joshi MD LAB - BLOOD ORDERABLES Performing Organization Address City/[facility]/ZIP Code Phon e Number [facility] [address] [place], [place] [phone] [place] [address] LABS HIV 1 and 2 Antibody (02/08/2012 7:25 AM CDT) Analysis Performed At Patho logist Time Signature HIV 1&2 Negative NEG [facility] Antibody [facility] LABS Specimen Anatomical Collection Method Collection Time Receive d Time (Source) Location / / Volume Laterality Blood specimen 02/08/2012 7:25 AM 012 7:30 (specimen) CDT AM CDT Darian Joshi MD LAB - BLOOD ORDERABLES Performing Organization Address City/State/ZIP Code Phon e Number [facility] [address] [place], [place] [phone] [place] [address] LABS Hepatitis C antibody (02/08/2012 7:25 AM CDT) Analysis Performed At Patho logist Time Signature Hepatitis C Negative NEG [facility] Antibody [facility] LABS Specimen Anatomical Collection Method Collection Time Receive d Time (Source) Location / / Volume Laterality Blood specimen 02/08/2012 7:25 AM 012 7:30 (specimen) CDT AM CDT Darian Joshi MD LAB - BLOOD ORDERABLES Performing Organization Address City/State/ZIP Code Phon e Number [facility] [address] [place], [place] [phone] [place] [address] LABS Hepatitis B surface antigen (02/08/2012 7:25 AM CDT) Analysis [facility] Signature Hep B Surface Negative NEG [facility] Agn [facility] LABS Specimen Anatomical Collection Method Collection Time Receive d Time (Source) Location / / Volume Laterality Blood specimen 02/08/2012 7:25 AM 012 7:30 (specimen) CDT AM CDT Darian Joshi MD LAB - BLOOD ORDERABLES Performing Organization Address City/[facility]/ZIP Code Phon e Number [facility] [address] LABS Hepatitis B surface antibody (02/08/2012 7:25 AM CDT) P athologist Signature Hep B Surface 135.0 [facility] LABS Comment: Positive, Patient is [...] Phon e Number [facility] [address] [place], [place] [phone] [place] [address] LABS Hepatitis B core antibody (02/08/2012 7:25 AM CDT) Analysis Performed At Patho logist Time Signature Hepatitis B Negative NEG [facility] Specimen Anatomical Collection Method Collection Time Receive d Time (Source) Location / / Volume Laterality Blood specimen 02/08/2012 7:25 AM 012 7:30 (specimen) CDT AM CDT Darian Joshi MD LAB - BLOOD ORDERABLES Performing Organization Address City/[facility]/ZIP Code Phon e Number [facility] [address] LABS EBV VCA IgG Antibody (02/08/2012 7:25 AM CDT) P athologist Signature EBV VCA IgG 188.00 U/mL [facility] LABS Comment: Positive, suggests immunologic exposure. Specimen Anatomical Collection Method Collection Time Receive d Time (Source) Location / / Volume Laterality Blood specimen 02/08/2012 7:25 AM 012 7:30 (specimen) CDT AM CDT Darian Joshi MD LAB - BLOOD ORDERABLES Performing Organization Address City/[facility]/ZIP Code Phon e Number [facility] [address] LABS CMV IGG ANTIBODY (02/08/2012 7:25 AM CDT) P athologist Signature CMV IgG 3.30 U/mL [facility] LABS Comment: Positive for anti-CMV IgG Specimen Anatomical Collection Method Collection Time Receive d Time (Source) Location / / Volume Laterality Blood specimen 02/08/2012 7:25 AM 012 7:30 (specimen) CDT AM CDT Darian Joshi MD LAB - BLOOD ORDERABLES Performing Organization Address City/[facility]/ZIP Code Phon e Number [facility] [address] LABS Immunology recipient: SOT HLA Workup (ABC,DR,DQ,PRA,Crossmatch) (02/08/2012 7:25 AM CDT) Patholo gist Method Time Signature Immunology SOT HLA WORKUP [facility] Test Name [facility] LABS Immunology Specimen [facility] Result received - [place] [facility] LABS report to follow upon completion. Specimen Anatomical Collection Method Collection Time Receive d Time (Source) Location / / Volume Laterality Blood specimen 02/08/2012 7:25 AM 012 7:30 (specimen) CDT AM CDT Darian Joshi MD LAB - IMMUNOLOGY ORDERABLES Performing Organization Address City/State/ZIP Code Phon e Number [facility] [address] [place] [address] [facility] [place] LABS (ABNORMAL) CBC with platelets differential (02/08/2012 7:25 AM CDT) [facility] gist Method Time Signature WBC 6.3 4.0 - [facility] 11.0 UN[facility] 10e9/L CAMPUS LABS RBC Count 3.97 (L) 4.4 - 5.9 [facility] 10e12/L [facility] LABS Hemoglobin 12.0 (L) 13.3 - [facility] 17.7 g/dL [facility] LABS Hematocrit 36.3 (L) 40.0 - [facility] 53.0 % [facility] LABS MCV 91 78 - 100 [facility] fl [facility] [place] LABS MCH 30.2 26.5 - [facility] 33.0 pg [place] [facility] LABS MCHC 33.1 31.5 - [facility] 36.5 g/dL [facility] LABS RDW 15.3 (H) 10.0 - [facility] 15.0 % [facility]AMPUS LABS Platelet Count 144 (L) 150 - 450 [facility] 10e9/L [facility] LABS Diff Method Automated [facility] Method [facility] LABS % Neutrophils 57.7 40 - 75 % [facility] LABS % Lymphocytes 27.7 20 - 48 % [facility] % Monocytes 8.2 0 - 12 % [facility] % Eosinophils 6.1 (H) 0 - 6 % [facility] LABS % Basophils 0.3 0 - 2 % [facility] % Immature 0.0 0 - 0.4 % [facility] Granulocytes [facility] LABS Absolute 3.6 1.6 - 8.3 [facility] Neutrophil 10e9/L [facility] LABS Absolute 1.7 0.8 - 5.3 [facility] Lymphocytes 10e9/L [facility] LABS Absolute 0.5 0.0 - 1.3 [facility] Monocytes 10e9/L [facility] LABS Absolute 0.4 0.0 - 0.7 [facility] Eosinophils 10e9/L [facility] LABS Absolute 0.0 0.0 - 0.2 [facility] Basophils 10e9/L [facility] LABS Abs Immature 0.0 0 - 0.03 [facility] Granulocytes 10e9/L [facility] LABS Specimen Anatomical Collection Method Collection Time Receive d Time (Source) Location / / Volume Laterality Blood specimen 02/08/2012 7:25 AM 012 7:30 (specimen) CDT AM CDT Darian Joshi MD LAB - BLOOD ORDERABLES Performing Organization Address [facility]/ZIP Code Phon e Number [facility] [address] LABS Lupus panel (02/08/2012 7:25 AM CDT) Component Value Ref Test Analysis Performed At Patholo gist Range Method Time Signature Lupus Result Negative NEG [facility] (Note) [place] COMMENTS: [place] LABS The INR is normal. APTT is normal. ??1:2 Mix is not indicated. DRVVT Screen is normal. Thrombin time is normal. NEGATIVE TEST; A LUPUS ANTICOAGULANT WAS NOT DETECTED IN THI S SPECIMEN WITHIN THE LIMITS OF THE TESTING REPERTOIRE. If the clinical picture is strongly suggestive of an antipho spholipid syndrome, recommend anticardiolipin and [id number] (IgG and IgM) antibody tests. Dee Duenas M.D. ??[phone] 02-09-2012. APTT'S: ?? Seconds Reagent = Stago [...] BLOOD ORDERABLES Performing Organization Address City/[facility]/ZIP Code Phon e Number [facility] [address] [place], [place] [phone] [place] [address] LABS Thrombin time (02/08/2012 7:25 AM CDT) P athologist Signature Thrombin Time 16.7 13.0 - [facility] 19.0 sec CAMPUS LABS Specimen Anatomical Collection Method Collection Time Receive d Time (Source) Location / / Volume Laterality Blood specimen 02/08/2012 7:25 AM 012 7:30 (specimen) CDT AM CDT Darian Joshi MD LAB - BLOOD ORDERABLES Performing Organization Address City/[facility]/ZIP Code Phon e Number [facility] [address] LABS Partial thromboplastin time (02/08/2012 7:25 AM CDT) P athologist Signature PTT 29 22 - 37 sec [facility] LABS Specimen Anatomical Collection Method Collection Time Receive d Time (Source) Location / / Volume Laterality Blood specimen 02/08/2012 7:25 AM 012 7:30 (specimen) CDT AM CDT Darian Joshi MD LAB - BLOOD ORDERABLES Performing Organization Address City/[facility]/ZIP Code Phon e Number [facility] [address] LABS INR (02/08/2012 7:25 AM CDT) P athologist Signature INR 1.11 0.86 - 1.14 [facility] LABS Specimen Anatomical Collection Method Collection Time Receive d Time (Source) Location / / Volume Laterality Blood specimen 02/08/2012 7:25 AM 012 7:30 (specimen) CDT AM CDT Darian Joshi MD LAB - BLOOD ORDERABLES Performing Organization Address City/[facility]/ZIP Code Phon e Number [phone] [place] [address] LABS Factor 2 and 5 mutation analysis (02/08/2012 7:07 AM CDT) Component Value Ref Test Analysis Performed At [facility] Range Method Time Signature Copath Report Patient Name: ELINOR GUTHRIE MR#: [id number] Specimen #: [id number] Collected: 02/08/2012 07:07 Received: 02/08/2012 09:00 Reported: 02/11/2012 14:03 Ordering Phy(s): DARIAN JOSHI TEST(S) REQUESTED: A: Factor 5 Leiden and Factor 2 by PCR B: DNA Isolation, High purity extraction SPECIMEN DESCRIPTION: Blood METHODOLOGY: ?? The regions of genomic DNA containing the G1 691A Factor 5 gene mutation (Factor V Leiden) and the Factor 2(Prothrombin [id number]) gene mutation were simultaneously amplified using the polyme rase chain reaction. ??The amplified products were digested with restri ction endonuclease TaqI and products were analyzed by gel electrop horesis. RESULTS: FACTOR 5-LEIDEN RESULTS: Mutation analyzed: ? 1691G>A Factor 5 Mutation Interpretation: ?ABSENT Factor 5 Mutation genotype: ?G/G FACTOR 2/PROTHROMBIN RESULTS: Mutation analyzed: ? 61650J>A Factor 2 Mutation Interpretation: ?ABSENT Factor 2 Mutation genotype: ?G/G INTERPRETATION: The patient is negative for the Factor 5 mutation and negati ve for the Factor 2 mutation. This test was developed and its performance determined by [facility] ??[facility] Diagnostic Laboratory. It has [...] Liliya Stone MD TESTING LAB LOCATION: [address] [address] COLLECTION SITE: Client: ??[facility] Location: ??UUTXO (B) Specimen Anatomical Collection Method Collection Time Receive d Time (Source) Location / / Volume Laterality 02/08/2012 7:07 AM 2 9:00 CDT AM CDT Provider Unknown LAB - GENOMICS Performing Organization Address City/State/ZIP Code Phon e Number [facility] (ABNORMAL) Routine UA with microscopic (02/08/2012 7:06 AM CDT) Component Value Ref Test Analysis Performed At [facility] gist Range Method Time Signature Color Urine Light Yellow [facility] LABS Appearance Urine Clear [facility] Glucose Urine 300 (A) NEG [facility] mg/dL [facility] LABS Bilirubin Urine Negative NEG [facility]S Ketones Urine Negative NEG [facility] mg/dL [facility] [place] LAB[facility] Specific [place] 1.010 1.003 - [facility] Urine 1.035 [facility] [place] [facility] Blood Urine Negative NEG [facility] LABS pH Urine 7.5 (H) 5.0 - [facility] 7.0 pH [facility] LABS Protein Albumin 300 (A) NEG [facility] Urine mg/dL [facility] [place] LABS Urobilinogen Normal 0.0 - [facility] mg/dL 2.0 [place] mg/dL CAMPUS LABS Nitrite Urine Negative NEG [facility] LABS Leukocyte Negative NEG [facility] Esterase Urine [facility] [place] LAB[facility] Source Unspecified [facility] Urine [facility]AMP[facility] LABS WBC Urine 1 0 - 2 [facility] /HPF [place] [facility] LABS RBC Urine <1 0 - 2 [facility] /HPF [facility] LABS Hyaline Casts 3 (H) 0 - 2 [facility] /LPF [facility] LABS Specimen Anatomical Collection Method Collection Time Receive d Time (Source) Location / / Volume Laterality Urine specimen 02/08/2012 7:06 AM 012 7:08 (specimen) CDT AM CDT Darian Joshi MD LAB - URINE ORDERABLES Performing Organization Address City/State/ZIP Code Phon e Number [facility] [address] [facility] LABS documented in this encounter Visit Diagnoses Diagnosis Diabetes mellitus, type 2 (H) Type II or unspecified type diabetes aung litus without mention of complication, not stated as uncontrolled End stage renal disease (H) End stage renal disease documented in this encounter Care Teams Clinical Care Coordinator Relationship Specialty Start Date End Date Toña Jones MD PCP - General Nephrology 11/25/11 01/01/14 documented as of this encounter
--- OUTSIDE RECORDS SUMMARY | 2022-05-24 11:57 | XMS_ITS | Encounter Summary ---
:1950 Author Organization [place] Address [address] [place] [address] Care Team Providers Name Role Phone Toña Jones MD Primary Care Provider Ingrid Santana RN Unavailable Unavailable Encounter Details Date Type Department Care Team Description 02/10/2012 Orders Only [facility] Anita Joshi MD Diabetes mellitus, type 2 (H); Clinic Imaging [address] [facility] End stage renal disease (H) [place] [address] [place] [address] 1st Floor, Clinic [address] [place] [address] [address] Social History Tobacco Use Types [...] disease documented in this encounter Care Teams Hotel Superintendent Relationship Specialty Start Date End Date Toña Jones MD PCP - General Nephrology 11/25/11 01/01/14 Ingrid Santana, RN Registered Nurse Transplant 02/10/12 documented as of this encounter
--- OUTSIDE RECORDS SUMMARY | 2022-05-24 11:57 | XMS_ITS | Encounter Summary ---
:1950 Author Organization [place] Address [address] [place] [address]. [place] [address] Care Team Providers Name Role Phone Toña Jones MD Primary Care Provider Ingrid Santana RN Unavailable Unavailable Momo Forbes Primary Care Provider Encounter Details Date Type Department Care Team Description 02/18/2012 [facility] 2[facility], Clinic [address] [phone] Social History Tobacco Use [...] filedocumented in this encounter Care Teams [employer] Account Manager Relationship Specialty Start Date End Date Toña Jones MD PCP - General Nephrology 11/25/11 01/01/14 Momo Forbes PCP - General Family Practice 01/02/14 [facility] [address] [place] [address] Ingrid Santana, RN Registered Nurse Transplant 02/10/12 documented as of this encounter
--- OUTSIDE RECORDS SUMMARY | 2022-05-24 11:57 | XMS_ITS | Encounter Summary ---
:1950 Author Organization [place] Address [address] [place] [address] Care Team Providers Name Role Phone Toña Jones MD Primary Care Provider Reason for Visit (Routine) - Closed Specialty Diagnoses / Procedures Referred By Contact Refer red To Contact Cardiology Diagnoses ECHO CLINIC COMPLETE ADULT Procedure Notes: DIABETES MELLITUS, TYPE 2,END STAGE RENAL DISEASE,Transplant eval,Performing Location?->[facility] Echocardiography Procedures RADIOLOGY [address] [place] [address] Phone: Referral ID Status Reason Start Date Expiration Date Visits Requ ested Visits Authorized [id number] Closed 01/21/2012 01/20/2013 1 1 Encounter Details Date Type Department Care Team Description 02/08/2012 Hospital Encounter [facility], [place], Jeff Joshi MD [address] [facility] [address] [place] [address] Diabetes mellitus, type 2 (H); Echocardiography Rajat German MD [address] [facility] [address] [place] [address] End stage renal disease (H) [address] [place] [address] Social History Tobacco Use Types [...] tablet by mouth 0 02/18/2014 daily. B yqqsvfu-L-aevez acid Take 1 capsule by mouth 0 [...] - Clinic (PWB) (02/08/2012 1:13 PM CDT) [facility] Method Time Signature XCELERA RADIOLOGY Interpretation [...] disease documented in this encounter Care Teams Denial Resolution Specialist Relationship Specialty Start Date End Date Toña Jones MD PCP - General Nephrology 11/25/11 01/01/14 documented as of this encounter
--- OUTSIDE RECORDS SUMMARY | 2022-05-24 11:57 | XMS_ITS | Encounter Summary ---
:1950 Author Organization [place] Address [facility] [place] [address] Care Team Providers Name Role Phone Toña Jones MD Primary Care Provider Ingrid Santana RN Unavailable Unavailable Reason for Visit Reason Comments Transplant Evaluation kidney Encounter Details Date Type Department Care Team Description 02/10/2012 Office Visit Nephrology Darian Joshi MD [address] [facility] [address] [place], [place] [id number] Pre-transplant 2nd Floor, Clinic 2A Joseph Quintana MD [address] [facility] [address] [facility] [address] [place], [place] [id number] evaluation for Sanders Mimaalyssa chronic kidney Building disease (Primary Dx) [address] [place] [id number] Social History Tobacco Use Types Packs/Day Years [...] Type: [facility]center HD; and Dialysis unit: [facility] Primary Rotary Dump Operator: Dr. 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 Yes Reported, Patient B yiackfa-G-wuude acid (NEPHROCAPS) 1 MG capsule Take 1 [...] NEG Ketones Urine Negative NEG (mg/dL) Specific [place] Urine 1.010 1.003 - 1.035 Blood Urine [...] Report Value: Patient Name: ELINOR GUTHRIE MR#: [id number] Specimen #: [id number] Collected: 02/08/2012 07:07 Received: 02/08/2012 09:00 Reported: 02/11/2012 14:03 Ordering Phy(s): DARIAN JOSHI TEST(S) REQUESTED: A: Factor 5 Leiden and Factor 2 by PCR B: DNA Isolation, High purity extraction SPECIMEN DESCRIPTION: Blood METHODOLOGY: The regions of genomic DNA containing the X2093M Factor 5 gene mutation (Factor V Leiden) and the Factor 2(Prothrombin Q12975V) gene mutation were simultaneously amplified using the polymerase chain reaction. The amplified products were digested with restriction endonuclease TaqI and products were analyzed by gel electrophoresis. RESULTS: FACTOR 5-LEIDEN RESULTS: Mutation analyzed: 1691G>A Factor 5 Mutation Interpretation: ABSENT Factor 5 Mutation genotype: G/G FACTOR 2/PROTHROMBIN RESULTS: Mutation analyzed: 93867A>A Factor 2 Mutation Interpretation: ABSENT Factor 2 Mutation genotype: G/G INTERPRETATION: The patient is negative for the Factor 5 mutation and negative for the Factor 2 mutation. This test was developed and its performance determined by the [facility]. It has not [...] By: Liliya Stone MD TESTING LAB LOCATION: [address] [address] COLLECTION SITE: Client: [facility] Location: [facility]) HLA LUKASZ CLASS I SINGLE ANTIGEN Collection [...] of an antiphospholipid syndrome, recommend anticardiolipin and nkdy-8-sytjkzvvpnda (IgG and IgM) antibody tests. Dee Duenas M.D. [phone] 02-09-2012. APTT'S: Seconds Reagent = Stago LS [...] Range Ventricular Rate 60 Atrial Rate 60 W[place] Interval 186 QRS Duration 104 QT 440 QTc 440 P [place] 36 R AXIS 0 T [place] 36 Interpretation ECG Sinus rhythm Interpretation ECG [...] Function Test Value: Name: ELINOR GUTHRIE ID: [id number] Doctor: DONYA THOMAS Height: 72.00 in Age: [...] INTERPRETATION: The FVC, FEV1, FEV1/FVC ratio and EFO53-20% are within normal limits. The inspiratory flow [...] 02/10/2012 10:00 AM CDT >> AUSTEN FAUSTIN [facility] Feb 10, 2012 9:54 AM Took igor cc, reviewed meds and allergies documented in this encounter Plan of Treatment Not on filedocumented as of this encounter Visit Diagnoses Diagnosis Pre-transplant evaluation for chronic ki dney disease - Primary Other specified pre-operative examinatio n documented in this encounter Care Teams Waiter/Waitress Counter Relationship Specialty Start Date End Date Toña Jones MD PCP - General Nephrology 11/25/11 01/01/14 Ingrid Santana, RN Registered Nurse Transplant 02/10/12 documented as of this encounter
--- OUTSIDE RECORDS SUMMARY | 2022-05-24 11:57 | XMS_ITS | Encounter Summary ---
:1950 Author Organization [place] Address [address] [facility] [place] [address] Care Team Providers Name Role Phone Toña Jones MD Primary Care Provider Ingrdi Santana RN Unavailable Unavailable Reason for Visit Reason Comments Heart Problem Consult prior to kidney proctor splant, needs EKG please. Encounter Details Date Type Department Care Team Description 02/10/2012 Office Visit Justice Barbara Bradley Unspecified es sential hypertension; [facility] [place] Pre-operative clearance Heart [address] [place] [address] Building [phone] 4th Floor, Clinic 4B (Work) [address] [address] Social History Tobacco Use Types [...] Stay Well and Call Maribel Nicole RN [phone] with any questions or concerns. You are scheduled for an Adenosine Stress Test 02/15/2012: Please check into the [facility] Waiting Room at 12:15pm for [...] and you need to reschedule, please call [phone]. January 2012Tuesday 1 2 3 4 5 6 7 8 9 10 11 12 13 14 15 16 17 18 19 [facility] NEW 6:30 AM (30 min.) Evaluation, [facility] Transplant [facility] FULL PULMONARY FUNCTION 8:00 AM (60 min.) 2, [facility] Pfl Premium Pulmonary Function Laboratory RADIOLOGY 8:05 AM (10 min.) Uicxr2 [facility] Diagnostic Imaging [facility] PREP KIDNEY/PANCREAS TX 9:00 AM (120 min.) Angela Lopez, [facility], [place], Patient Learning Center [facility] TRANSPLANT CLASS KIDNEY 9:00 AM (90 min.) Class, [facility] Transplant [facility] Transplant [facility] RN CHEMICAL DEPENDENCY 11:00 AM (30 min.) Coordinator, [facility] Transplant [facility] PRE-TX KIDNEY EVAL 11:00 AM (30 min.) Donya Thomas MD Transplant Surgery LAB 11:30 AM (15 min.) Pwb, Op Lab [facility], Lab RADIOLOGY 1:30 PM (55 min.) Uecvc1 [facility], Echocardiography 20 21 [facility] RETURN 7:00 AM (15 min.) Evaluation, [facility] Txc [facility] Transplant [facility] RADIOLOGY 7:00 AM (60 min.) Uicusr2 [facility] Diagnostic Imaging CONSULT HOD 8:00 AM (60 min.) Martina Mcneill, JOHN [facility], Nutrition Services [facility] SOCIAL WORK 9:00 AM (60 min.) 2, [facility] Tx Consult Room The Transplant Center [facility] PRE-TX KIDNEY EVAL 10:00 AM (60 min.) Joseph Quintana MD Nephrology [facility] PANCREAS-KIDNEY TX W/U 11:30 AM (30 min.) Barbara Bradley MD [facility] Physicians Heart 22 23 24 25 26 RADIOLOGY 12:30 PM (15 min.) Uninj [facility], Nuclear Medicine RADIOLOGY 1:15 PM (20 min.) Unr1 [facility], Nuclear Medicine RADIOLOGY 1:40 PM (30 min.) [facility] RADIOLOGY 3:10 PM (20 min.) Unr1 [facility], Nuclear Medicine 27 28 29 20 [...] 1 tablet by mouth daily. ??? 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 Perez MD melt supervisor. Divisions of Cardiology [facility] Patient Care Team: Toañ Jones MD as PCP - General (Nephrology) Ingrid Santana RN as Registered Nurse (Transplant) DONYA THOMAS documented in this encounter Plan of Treatment Not on filedocumented as of this encounter Visit Diagnoses Diagnosis Unspecified essential hypertension Pre-operative clearance Preoperative examination, unspecified documented in this encounter Care Teams Blow Molder Relationship Specialty Start Date End Date Toña Jones MD PCP - General Nephrology 11/25/11 01/01/14 Ingrid Santana RN Registered Nurse Transplant 02/10/12 documented as of this encounter
--- OUTSIDE RECORDS SUMMARY | 2022-05-24 11:57 | XMS_ITS | Encounter Summary ---
:1950 Author Organization [place] Address [address] [place] [address] Care Team Providers Name Role Phone Toña Jones MD Primary Care Provider Ingrid Santana RN Unavailable Unavailable Encounter Details Date Type Department Care Team Description 04/13/2012 Results Only LABORATORY RESULTS Mingo Dangelo MD [address] [facility] [address] [place] [address] (Wo rk) Social History Tobacco [...] HLA Lukasz Class I Single Antigen (04/13/2012) [facility] gist Method Time Signature SA1 Test Single [...] Phon e Number [facility] Immunology/Histocompatabil [place], [place] [address] ity [facility] [address] Building, Room 3-580 HISTOTRAC documented in this encounter Visit Diagnoses Not on filedocumented in this encounter Care Teams Aircraft Time Clerk Relationship Specialty Start Date End Date Toña Jones MD PCP - General Nephrology 11/25/11 01/01/14 Ingrid Santana RN Registered Nurse Transplant 02/10/12 documented as of this encounter
--- OUTSIDE RECORDS SUMMARY | 2022-05-24 11:57 | XMS_ITS | Encounter Summary ---
:1950 Author Organization [place] Address [address] [place] [address]. [place] [address] Care Team Providers Name Role Phone Toña [...] Associated Diagnosis Comme nts PATHOLOGY RESULT - [facility] 03/17/2012 8:24 AM CDT SCAN - [...] on filedocumented in this encounter Care Teams Military Logistics Specialist Relationship Specialty Start Date End Date Toña Jones MD PCP - General Nephrology 11/25/11 01/01/14 Momo Forbes PCP - General Family Practice 01/02/14 [facility] [address] [place] [address] Ingrid Santana, RN Registered Nurse Transplant 02/10/12 documented as of this encounter
--- OUTSIDE RECORDS SUMMARY | 2022-05-24 11:57 | XMS_ITS | Encounter Summary ---
:1950 Author Organization [place] Address [address] [place] [address] Care Team Providers Name Role Phone Toña Jones MD Primary Care Provider Ingrid Santana RN Unavailable Unavailable Reason for Visit (Routine) - Closed Specialty Diagnoses / Procedures Referred By Contact Refer red To Contact Radiology Diagnoses [place] MPI SCAN Procedure Notes: UNSPECIFIED ESSENTIAL HYPERTENSION,PREOPERATIVE EXAMINATION, UNSPECIFIED, [facility] Nuclear Medicine Procedures RADIOLOGY [address] [place] [address] Phone: Referral ID Status Reason Start Date Expiration Date Visits Requ ested Visits Authorized [id number] Closed 02/11/2012 02/10/2013 1 1 Encounter Details Date Type Department Care Team Description 02/15/2012 Hospital Encounter [facility] Barbara Bradley ESRD (end stage [facility] Imaging MD Monae renal disease) (H) [address] [facility] [address] [place] [address] Social History Tobacco Use [...] tablet by mouth 0 02/18/2014 daily. B sdjxjgv-D-kepbv acid Take 1 capsule by mouth 0 [...] disease documented in this encounter Care Teams Platform Engineer Relationship Specialty Start Date End Date Toña Jones MD PCP - General Nephrology 11/25/11 01/01/14 Ingrid Santana, RN Registered Nurse Transplant 02/10/12 documented as of this encounter
--- OUTSIDE RECORDS SUMMARY | 2022-05-24 11:57 | XMS_ITS | Encounter Summary ---
:1950 Author Organization [place] Address [facility] [place] [address] Care Team Providers Name Role Phone Toña Jones MD Primary Care Provider Ingrid Santana RN Unavailable Unavailable Encounter Details Date Type Department Care Team Description 07/03/2012 Results Only LABORATORY RESULTS Barbara Bradley MD [address] [place], [place] [address] Social History Tobacco Use [...] in this encounter Results Virtual Crossmatch (07/03/2012) [facility] Method Time Signature Crossmatch Donor:GEOVANYKATHARINEPOOJA FigueredoABRAHAM ? Crossmatch Date:07/24/2012 HISTOTRAC Result (Note) Serum Date ??Test ?Result ? Donor Specific Antibody ?Comments 07/03/2012 ??Class I/Virtxm1 ? DSA ?None ? 07/03/2012 ??Class II/Virtxm 1 ?DSA ?None ? Specimen (Source) Anatomical Collection Method Collection Time Re ceived Time Location / / Volume Laterality 07/03/2012 07/05/2012 1:57 PM HYPERBARIC WELDER DIVER Barbara Bradley MD LAB - IMMUNOLOGY ORDERABLES Performing Organization Address City/State/ZIP Code Phon e Number [facility] Immunology/Histocompatabil [place], [place] [address] [facility] [address] Building, Room 3-580 HISTOTRAC documented in this encounter Visit Diagnoses Not on filedocumented in this encounter Care Teams Supervisor Post Wave Relationship Specialty Start Date End Date Toña Jones MD PCP - General Nephrology 11/25/11 01/01/14 Ingrid Santana RN Registered Nurse Transplant 02/10/12 documented as of this encounter
--- OUTSIDE RECORDS SUMMARY | 2022-05-24 11:57 | XMS_ITS | Encounter Summary ---
:1950 Author Organization [place] Address [address] [place] [address] Care Team Providers Name Role Phone Toña Jones MD Primary Care Provider Ingrid Santana RN Unavailable Unavailable Encounter Details Date Type Department Care Team Description 02/08/2012 Results Only LABORATORY RESULTS Jeff Joshi MD [facility] [facility] [address] [place] [address] (Wo rk) Social History Tobacco [...] II Single Antigen (02/08/2012 7:07 AM CDT) [facility] [...] Phon e Number [facility] Immunology/Histocompatabil [place], [place] [address] [facility] [address] Building, Room 3-580 HISTOTRAC documented in this encounter Visit Diagnoses Not on filedocumented in this encounter Care Teams Delivery Supervisor Relationship Specialty Start Date End Date Toña Jones MD PCP - General Nephrology 11/25/11 01/01/14 Ingrid Santana RN Registered Nurse Transplant 02/10/12 documented as of this encounter
--- OUTSIDE RECORDS SUMMARY | 2022-05-24 11:57 | XMS_ITS | Encounter Summary ---
:1950 Author Organization [place] Address [address] [place] [address] Care Team Providers Name Role Phone Toña Jones MD Primary Care Provider Ingrid Santana RN Unavailable Unavailable Encounter Details Date Type Department Care Team Description 02/15/2012 Hospital Encounter [facility] BradleyBarbara Unsp ecified essential hypertension; [facility] Imaging MD Monae Pre-operative clearance [address] [place] [phone] Social History Tobacco Use Types Packs/Day [...] tablet by mouth 0 02/18/2014 daily. B foyffbu-U-xxbpt acid Take 1 capsule by mouth 0 [...] unspecified documented in this encounter Care Teams Brothel Keeper Relationship Specialty Start Date End Date Toña Jones MD PCP - General Nephrology 11/25/11 01/01/14 Ingrid Santana, RN Registered Nurse Transplant 02/10/12 documented as of this encounter
--- OUTSIDE RECORDS SUMMARY | 2022-05-24 11:57 | XMS_ITS | Encounter Summary ---
:1950 Author Organization [place] Address [address] [place] [address] Care Team Providers Name Role Phone Toña Jones MD Primary Care Provider Ingrid Santana RN Unavailable Unavailable Encounter Details Date Type Department Care Team Description 07/03/2012 Results Only LABORATORY RESULTS Barbara Bradley MD [address] [place], [place] [address] Social History Tobacco Use [...] HLA Lukasz Class II Single Antigen (07/03/2012) [facility] Method Time Signature SA2 Test [...] / Volume Laterality 07/03/2012 07/05/2012 1:57 PM OPERATIONS LABEL CLERK Barbara Bradley MD LAB - IMMUNOLOGY ORDERABLES Performing Organization Address City/State/ZIP Code Phon e Number [facility] Immunology/Histocompatabil [place] [address] ity [facility] [address] Building, Room 3-580 HISTOTRAC documented in this encounter Visit Diagnoses Not on filedocumented in this encounter Care Teams Endo Tech Relationship Specialty Start Date End Date Toña Jones MD PCP - General Nephrology 11/25/11 01/01/14 Ingrid Santana RN Registered Nurse Transplant 02/10/12 documented as of this encounter
--- OUTSIDE RECORDS SUMMARY | 2022-05-24 11:57 | XMS_ITS | Encounter Summary ---
:1950 Author Organization [place] Address [address] [place] [address] Care Team Providers Name Role Phone Toña Jones MD Primary Care Provider Ingrid Santana RN Unavailable Unavailable Encounter Details Date Type Department Care Team Description 07/03/2012 Results Only LABORATORY RESULTS Barbara Bradley MD [address] [place], [place] [address] Social History Tobacco Use [...] HLA Lukasz Class I Single Antigen (07/03/2012) [facility] Method Time Signature SA1 Test Single [...] / Volume Laterality 07/03/2012 07/05/2012 1:57 PM HEM INSPECTOR Barbara Bradley MD LAB - IMMUNOLOGY ORDERABLES Performing Organization Address City/State/ZIP Code Phon e Number [facility] Immunology/Histocompatabil [place], [place] [address]y [facility] C[facility] [address] [facility] [address] Building, Room 3-580 HISTOTRAC documented in this encounter Visit Diagnoses Not on filedocumented in this encounter Care Teams Forklift Material Handler Relationship Specialty Start Date End Date Toña Jones MD PCP - General Nephrology 11/25/11 01/01/14 Ingrid Santana RN Registered Nurse Transplant 02/10/12 documented as of this encounter
--- OUTSIDE RECORDS SUMMARY | 2022-05-24 11:57 | XMS_ITS | Encounter Summary ---
:1950 Author Organization [place] Address [address] [place] [address] Care Team Providers Name Role Phone Toña Jones MD Primary Care Provider Ingrid Santana RN Unavailable Unavailable Encounter Details Date Type Department Care Team Description 02/08/2012 Results Only LABORATORY RESULTS Jeff Joshi MD [facility] [facility] [address] [place] [address] (Wo rk) Social History Tobacco [...] Phon e Number [facility] Immunology/Histocompatabil [place], [place] [address] ity [facility] [address] [facility] [address] Building, Room 3-580 HISTOTRAC documented in this encounter Visit Diagnoses Not on filedocumented in this encounter Care Teams Power Plant Supervisor Relationship Specialty Start Date End Date Toña Jones MD PCP - General Nephrology 11/25/11 01/01/14 Ingrid Santana RN Registered Nurse Transplant 02/10/12 documented as of this encounter
--- OUTSIDE RECORDS SUMMARY | 2022-05-24 11:57 | XMS_ITS | Encounter Summary ---
:1950 Author Organization [place] Address [facility] [address] Care Team Providers Name Role Phone Toña Jones MD Primary Care Provider Ingrid Santana RN Unavailable Unavailable Reason for Visit Reason Comments Social Work Services Encounter Details Date Type Department Care Team Description 02/10/2012 Office Visit The Transplant Akanksha Stacy Organ transplant 2nd Floor, Clinic 2A SHALOM Zacarias candidate (Primary [facility] Dx) [address] [phone] Social History Tobacco Use Types Packs/Day Years [...] old Duration of Interview: 40 min Process: Zrvy-ty-Rgiz Interview (counseling < 50%) Present at Appointment: Latrell, his brother Kiran and Latrell Zamora, Transplant Financial Owner Oral SurgeonPrototype Engineer Manager Worker: CECY Ortiz, [facility] Date: February 10, 2012 Type of transplant: Kidney Donor type: Latrell indicated that he does not know of any potential donors at this time. Cadaver Prior Transplants: No Status of Transplant: Current Living Situation Location: [address] [place] [phone] With Whom: Alone Family/ Social Support: Kiran lives in [place], [place]. Available, helpful Committed relationship: Latrell indicated [...] Income Savings Insurance Latrell has BC/BS through [employer] until 07/22/13. He has also applied for [...] that assist with fund raising. Discussed asking expeller worker for assistance with cobra premiums and [...] Adequate Finances Yes Signature: CECY Ortiz, [facility] Title: Clinical Concentrator Operator documented in this encounter Plan of Treatment Not on filedocumented as of this encounter Visit Diagnoses Diagnosis Organ transplant candidate - Primary Awaiting organ transplant status documented in this encounter Care Teams Emergency Room Doctor Relationship Specialty Start Date End Date Toña Jones MD PCP - General Nephrology 11/25/11 01/01/14 Ingrid Santana RN Registered Nurse Transplant 02/10/12 documented as of this encounter
--- OUTSIDE RECORDS SUMMARY | 2022-05-24 11:57 | XMS_ITS | Encounter Summary ---
:1950 Author Organization [place] Address [facility]0 [facility] [place] [address] Care Team Providers Name Role Phone Toña Jones MD Primary Care Provider Blayne Santana RN Unavailable Unavailable Reason for Visit Reason Comments Transplant Evaluation Encounter Details Date Type Department Care Team Description 02/08/2012 Office Visit Transplant Surgery Jesus Cardenas, DM (di abetes mellitus), type 2 (H); Clinic End stage renal disease (H) 2nd Floor, Clinic [address] [phone] Social History Tobacco Use Types Packs/Day Years [...] from the original note were not included. 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 B stasfir-I-mupox acid (NEPHROCAPS) 1 MG capsule Take 1 [...] Test 02/08/12 0725 INR 1.11 F2MAR -- [id number] -- Lipid Profile: Cholesterol Date Value Range [...] Nursing Notes 02/08/2012 11:00 AM CDT >> BLANYE SANTANA RN TueFeb 09, 2012 3:21 PM Pre Abdominal Organ Exhibition Carver Evaluation Note: present: Dr. Jesus Cardenas Attendees: self Type of transplant: kidney Required Topic(s) Discussed: Evaluation notification document, SRTR data, Multiple wait list brochure, LIGHT TRUCK DRIVER, Evaluation/approval process, Selection committee process, Wait list [...] spent with patient: 15 minutes -- Nurse Exhibition Carver Pager [phone] BLAYNE SANTANA -- Nurse Exhibition Carver Pager [phone] >> Lena Sánchez RN santino Feb 08, [...] disease documented in this encounter Care Teams Reexaminer Relationship Specialty Start Date End Date Toña Jones MD PCP - General Nephrology 11/25/11 01/01/14 Blayne Santana, RN Registered Nurse Transplant 02/10/12 documented as of this encounter
--- OUTSIDE RECORDS SUMMARY | 2022-05-24 11:58 | XMS_ITS | Encounter Summary ---
:1950 Author Organization [place] Address [address] [place] [address]. [place] [address] Care Team Providers Name Role Phone Toña [...] filedocumented in this encounter Care Teams Steel Plate Printer Relationship Specialty Start Date End Date Toña Jones MD PCP - General Nephrology 11/25/11 01/01/14 Momo Forbes PCP - General Family Practice 01/02/14 [facility] [address] [place] [address] Siers, Ingrid A, RN Registered Nurse Transplant 02/10/12 documented as of this encounter
--- OUTSIDE RECORDS SUMMARY | 2022-05-24 11:58 | XMS_ITS | Encounter Summary ---
:1950 Author Organization [place] Address [facility]0 [facility] [place] [address] Care Team Providers Name Role Phone Toña Jones MD Primary Care Provider Reason for Visit Reason Onset Date Comments Pre Visit Planning - Done 02/07/2012 Consult prior to kidney transplant, needs EKG please. Encounter Details Date Type Department Care Team Description 02/07/2012 PRE VISIT [facility] Barbara Bradlye Pre Visit Planning - Physicians Heart MD Monae Done (Consult prior to Sanders Wangensteen [address] kidney transplant, [place] [address] needs EKG please.) 4th Floor, Clinic [address] [phone] Social History Tobacco Use Types [...] on filedocumented in this encounter Care Teams Mannequin Molder Relationship Specialty Start Date End Date Toña Jones MD PCP - General Nephrology 11/25/11 01/01/14 documented as of this encounter
--- OUTSIDE RECORDS SUMMARY | 2022-05-24 11:58 | XMS_ITS | Encounter Summary ---
:1950 Author Organization [place] Address [facility] [address] Care Team Providers Name Role Phone Toña [...] Marcela Provider PFT ORDERABLES SLEEP STUDY - [facility] SCAN - ARCHIVE (05/20/2011 8:28 AM CDT) Specimen (Source) Anatomical Location Collection Method / Collectio n Time Received Time / Laterality Volume Narrative This result has an attachment that is no t available. Marcela Cordero MD PFT ORDERABLES documented in this encounter Visit Diagnoses Not on filedocumented in this encounter Care Teams Texture Artist Relationship Specialty Start Date End Date Toña Jones MD PCP - General Nephrology 11/25/11 01/01/14 Momo Forbes PCP - General Family Practice 01/02/14 [facility] [address] [place] [address] Ingrid Santana, RN Registered Nurse Transplant 02/10/12 documented as of this encounter
--- OUTSIDE RECORDS SUMMARY | 2022-05-24 11:58 | XMS_ITS | Encounter Summary ---
:1950 Author Organization [place] Address [facility] [place] [address] Care Team Providers Name Role Phone Toña Jones MD Primary Care Provider Reason for Visit Reason Onset Date Comments Patient Reminder 02/01/2012 Encounter Details Date Type Department Care Team Description 02/01/2012 PRE VISIT Nephrology Joseph Quintana, Patient Reminder 2nd Floor, Clinic 2A MD Tommy Guill[address] [place], [place] [address] [place] [address] (Wo rk) [phone] Social History Tobacco Use Types Packs/Day Years [...] filedocumented in this encounter Care Teams Logistics And Planning Manager Relationship Specialty Start Date End Date Toña Jones MD PCP - General Nephrology 11/25/11 01/01/14 documented as of this encounter
--- OUTSIDE RECORDS SUMMARY | 2022-05-24 11:58 | XMS_ITS | Encounter Summary ---
:1950 Author Organization [place] Address [address] [place] [address]. [place] [address] Care Team Providers Name Role Phone Toña [...] this encounter Care Teams Oil And Gas Specialist Relationship Specialty Start Date End Date Toña Jones MD PCP - General Nephrology 11/25/11 01/01/14 Momo Forbes PCP - General Family Practice 01/02/14 [facility] [address] [place] [address] Siers, Ingrid A, RN Registered Nurse Transplant 02/10/12 documented as of this encounter
--- OUTSIDE RECORDS SUMMARY | 2022-05-24 11:58 | XMS_ITS | Encounter Summary ---
:1950 Author Organization [place] Address [address] [facility] [place] [address] Care Team Providers Name Role Phone Toña [...] filedocumented in this encounter Care Teams Private Pilot Relationship Specialty Start Date End Date Toña Jones MD PCP - General Nephrology 11/25/11 01/01/14 Momo Forbes PCP - General Family Practice 01/02/[address] [address] Ingrid Santana, RN Registered Nurse Transplant 02/10/12 documented as of this encounter
--- OUTSIDE RECORDS SUMMARY | 2022-05-24 11:58 | XMS_ITS | Encounter Summary ---
:1950 Author Organization [place] Address [address] [place] [address]. [place] [address] Care Team Providers Name Role Phone Toña [...] on filedocumented in this encounter Care Teams E Learning Designer Relationship Specialty Start Date End Date Toña Jones MD PCP - General Nephrology 11/25/11 01/01/14 Momo Forbes PCP - General Family Practice 01/02/14 [facility] [address] [place] [address] Siers, Ingrid A, RN Registered Nurse Transplant 02/10/12 documented as of this encounter
--- OUTSIDE RECORDS SUMMARY | 2022-05-24 11:58 | XMS_ITS | Encounter Summary ---
:1950 Author Organization [place] Address [address] [place] [address]. [place] [address] Care Team Providers Name Role Phone Toña [...] on filedocumented in this encounter Care Teams Print Line Inspector Relationship Specialty Start Date End Date Toña Jones MD PCP - General Nephrology 11/25/11 01/01/14 Momo Forbes PCP - General Family Practice 01/02/14 [facility] [address] [place] [address] Siers, Ingrid A, RN Registered Nurse Transplant 02/10/12 documented as of this encounter
--- OUTSIDE RECORDS SUMMARY | 2022-05-24 11:58 | XMS_ITS | Encounter Summary ---
:1950 Author Organization [place] Address [address] [place] [address]. [place] [address] Care Team Providers Name Role Phone Toña [...] filedocumented in this encounter Care Teams Control Valve Technician Relationship Specialty Start Date End Date Toña Jones MD PCP - General Nephrology 11/25/11 01/01/14 Momo Forbes PCP - General Family Practice 01/02/14 [facility] [address] [place] [address] Siers, Ingrid A, RN Registered Nurse Transplant 02/10/12 documented as of this encounter
--- OUTSIDE RECORDS SUMMARY | 2022-05-24 11:58 | XMS_ITS | Encounter Summary ---
:1950 Author Organization [place] Address [facility] [place] [address] Care Team Providers Name Role Phone Toña [...] filedocumented in this encounter Care Teams Shipping Hand Relationship Specialty Start Date End Date Toña Jones MD PCP - General Nephrology 11/25/11 01/01/14 Momo Forbes PCP - General Family Practice 01/02/14 [facility] [address] [place] [address] Ingrid Santana, RN Registered Nurse Transplant 02/10/12 documented as of this encounter
--- OUTSIDE RECORDS SUMMARY | 2022-05-24 11:58 | XMS_ITS | Encounter Summary ---
:1950 Author Organization [place] Address [address] [place] [address]. [place] [address] Care Team Providers Name Role Phone Toña Jones MD Primary Care Provider Ignrid Santana RN Unavailable Unavailable Momo Forbes [...] filedocumented in this encounter Care Teams Rn Chronic Relationship Specialty Start Date End Date Toña Jones MD PCP - General Nephrology 11/25/11 01/01/14 Momo Forbes PCP - General Family Practice 01/02/14 [facility] [address] [place] [address] Siers, Ingrid A, RN Registered Nurse Transplant 02/10/12 documented as of this encounter
--- OUTSIDE RECORDS SUMMARY | 2022-05-24 11:58 | XMS_ITS | Encounter Summary ---
:1950 Author Organization [place] Address [address] [place] [address]. [place] [address] Care Team Providers Name Role Phone Toña [...] on filedocumented in this encounter Care Teams Scientific Laboratory Supervisor Relationship Specialty Start Date End Date Toña Jones MD PCP - General Nephrology 11/25/11 01/01/14 Momo Forbes PCP - General Family Practice 01/02/14 [facility] [address] [place] [address] Ingrid Santana, RN Registered Nurse Transplant 02/10/12 documented as of this encounter
--- OUTSIDE RECORDS SUMMARY | 2022-05-24 11:58 | XMS_ITS | Encounter Summary ---
:1950 Author Organization [place] Address [facility] [place] [address] Care Team Providers Name Role Phone Toña Jones MD Primary Care Provider Reason for Referral - Closed Specialty Diagnoses / Procedures Referred By Contact Refer red To Contact Diagnoses Diabetes mellitus, type 2 (H) End stage renal disease (H) [facility] Floor, [place] [phone] Referral ID Status Reason Start Date Expiration Date Visits Requ ested Visits Authorized [id number] Closed 12/02/2011 05/30/2012 1 1 - Closed Specialty Diagnoses / Procedures Referred By Contact Refer red To Contact Diagnoses Diabetes mellitus, type 2 (H) End stage renal disease (H) [facility] Renal [facility] Floor, [address] [phone] Referral ID Status Reason Start Date Expiration Date Visits Requ ested Visits Authorized [id number] Closed 12/02/2011 05/30/2012 1 1 - Closed Specialty Diagnoses / Procedures Referred By Contact Refer red To Contact Diagnoses Diabetes mellitus, type 2 (H) End stage renal disease (H) [facility] Renal 2nd Floor, [facility] 2A [place] [phone] Referral ID Status Reason Start Date Expiration Date Visits Requ ested Visits Authorized [id number] Closed 12/02/2011 05/30/2012 1 1 - Closed Specialty Diagnoses / Procedures Referred By Contact Refer red To Contact Diagnoses Diabetes mellitus, type 2 (H) End stage renal disease (H) [facility] Renal 2nd Floor, Clinic 2A [place] [phone] Referral ID Status Reason Start Date Expiration Date Visits Requ ested Visits Authorized [id number] Closed 12/02/2011 05/30/2012 1 1 - Closed Specialty Diagnoses / Procedures Referred By Contact Refer red To Contact Diagnoses Diabetes mellitus, type 2 (H) End stage renal disease (H) [facility] Renal [facility] Floor, [address] [phone] Referral ID Status Reason Start Date Expiration Date Visits Requ ested Visits Authorized [id number] Closed 12/02/2011 05/30/2012 1 1 - Closed Specialty Diagnoses / Procedures Referred By Contact Refer red To Contact Diagnoses Diabetes mellitus, type 2 (H) End stage renal disease (H) [facility] Renal [address] [place] [address], [address] [phone] Referral ID Status Reason Start Date Expiration Date Visits Requ ested Visits Authorized [id number] Closed 12/02/2011 05/30/2012 1 1 - Closed Specialty Diagnoses / Procedures Referred By Contact Refer red To Contact Diagnoses Diabetes mellitus, type 2 (H) End stage renal disease (H) [facility] Renal 2nd Floor, Clinic [address]A [address] [phone] Referral ID Status Reason Start Date Expiration Date Visits Requ ested Visits Authorized [id number] Closed 12/02/2011 05/30/2012 1 1 - Closed Specialty Diagnoses / Procedures Referred By Contact Refer red To Contact Diagnoses Diabetes mellitus, type 2 (H) End stage renal disease (H) [facility] Renal 2nd Floor, Clinic [address]A [address] [phone] Referral ID Status Reason Start Date Expiration Date Visits Requ ested Visits Authorized [id number] Closed 12/02/2011 05/30/2012 1 1 - Closed Specialty Diagnoses / Procedures Referred By Contact Refer red To Contact Diagnoses Diabetes mellitus, type 2 (H) End stage renal disease (H) [facility] Renal 2nd Floor, Clinic [address]A [address] [phone] Referral ID Status Reason Start Date Expiration Date Visits Requ ested Visits Authorized [id number] Closed 12/02/2011 05/30/2012 1 1 Encounter Details Date Type Department Care Team Description 12/02/2011 Orders Only Nephrology Ingrid Santana, Diabetes mellitus, type 2 (H ); 2nd Floor, Clinic 2A RN End stage renal disease (H) [address] [phone] Social History Tobacco Use Types [...] 2 (H) End stage renal disease (H) ROPE CLEANER Referral Routine Diabetes mellitus, Ordered: 12/02/2011 REFERRAL type 2 (H) End stage renal disease (H) NEPHROLOGY ADULT REFERRAL Referral Routine Diabetes mellit us, Ordered: 12/02/2011 type 2 (H) End stage renal disease (H) GENERAL SURG ADULT Referral Routine Diabetes mellitus, Ord ered: 12/02/2011 REFERRAL type 2 (H) End stage renal disease (H) CURB SUPERVISOR REFERRAL Referral Routine Diabetes mellitu s, Ordered: [...] disease documented in this encounter Care Teams Warp Placer Relationship Specialty Start Date End Date Toña Jones MD PCP - General Nephrology 11/25/11 01/01/14 documented as of this encounter
--- OUTSIDE RECORDS SUMMARY | 2022-05-24 11:58 | XMS_ITS | Encounter Summary ---
:1950 Author Organization [place] Address [address] [place] [address]. [place] [address] Care Team Providers Name Role Phone Toña Jones MD Primary Care Provider Ingrid Santana RN Unavailable Unavailable Momo Forbes Primary Care Provider Encounter Details Date Type Department Care Team Description 05/20/2010 Historic Results CONVERSION Provider, MD Marcela Social [...] filedocumented in this encounter Care Teams Boiler House Supervisor Relationship Specialty Start Date End Date Toña Jones MD PCP - General Nephrology 11/25/11 01/01/14 Momo Forbes PCP - General Family Practice 01/02/14 [facility] [address] [place] [address] Siers, Ingrid A, RN Registered Nurse Transplant 02/10/12 documented as of this encounter
--- OUTSIDE RECORDS SUMMARY | 2022-05-24 11:58 | XMS_ITS | Encounter Summary ---
:1950 Author Organization [place] Address [address] [place] [address]. [place] [address] Care Team Providers Name Role Phone Toña Jones MD Primary Care Provider Reason for Visit Reason Comments Transplant Evaluation Kidney transplant evaluation - Diabetes, End Stage Renal Disease Encounter Details Date Type Department Care Team Description 02/08/2012 Office Visit The Transplant Edda Cardenas, Ty Blink, DM (diabetes 2nd Floor, Clinic 2A MD mellitus), type 2 (H) Tommy Wilburn (Primar y Dx) [address] [phone] Social History Tobacco Use Types Packs/Day Years [...] (willing/able to accept information): Yes Any cultural factors/congregation beliefs that may influence understanding or compliance? [...] documented in this encounter Care Teams Medical Librarian Relationship Specialty Start Date End Date Toña Jones MD PCP - General Nephrology 11/25/11 01/01/14 documented as of this encounter
--- OUTSIDE RECORDS SUMMARY | 2022-05-24 11:58 | XMS_ITS | Encounter Summary ---
:1950 Author Organization [place] Address [facility]0 [facility] [place] [address] Care Team Providers Name Role Phone Toña Jones MD Primary Care Provider Ingrid Santana RN Unavailable Unavailable Momo Forbes Primary Care Provider Encounter Details Date Type Department Care Team Description 12/03/2004 Historic Results CONVERSION Provider, MD Marcela Social [...] on filedocumented in this encounter Care Teams Optical Mechanic Apprentice Relationship Specialty Start Date End Date Toña Jones MD PCP - General Nephrology 11/25/11 01/01/14 Momo Forbes PCP - General Family Practice 01/02/14 [facility] [address] [place] [address] Ingrid Santana, RN Registered Nurse Transplant 02/10/12 documented as of this encounter
--- OUTSIDE RECORDS SUMMARY | 2022-05-24 11:58 | XMS_ITS | Encounter Summary ---
:1950 Author Organization [place] Address [address] [place] [address]. [place] [address] Care Team Providers Name Role Phone Toña Jones MD Primary Care Provider Ingrid Santana RN Unavailable Unavailable Momo Forbes Primary Care Provider Encounter Details Date Type Department Care Team Description 12/15/2004 Historic Results CONVERSION Provider, MD Marcela Social [...] on filedocumented in this encounter Care Teams Meat Cutter Apprentice Relationship Specialty Start Date End Date Toña Jones MD PCP - General Nephrology 11/25/11 01/01/14 Momo Forbes PCP - General Family Practice 01/02/14 [facility] [address] [place] [address] Siers, Ingrid A, RN Registered Nurse Transplant 02/10/12 documented as of this encounter
--- OUTSIDE RECORDS SUMMARY | 2022-05-24 11:58 | XMS_ITS | Encounter Summary ---
:1950 Author Organization [place] Address [facility] [address] Care Team Providers Name Role Phone Toña [...] CARDIAC - HIM SCAN 08/30/2011 8:28 AM EYEGLASS INSPECTOR - ARCHIVE ECHO CARDIAC - HIM SCAN 08/30/2011 8:27 AM EYEGLASS INSPECTOR - ARCHIVE documented in this encounter Results EKG CARDIAC - HIM SCAN - ARCHIVE (08/30/2011 8:28 AM EYEGLASS INSPECTOR) Specimen (Source) Anatomical Location Collection Method / Collectio n Time Received Time / Laterality Volume Narrative This result has an attachment that is no t available. Marcela Provider ECG ORDERABLES ECHO CARDIAC - HIM SCAN - ARCHIVE (08/30/2011 8:27 AM EYEGLASS INSPECTOR) Specimen (Source) Anatomical Location Collection Method / Collectio n Time Received Time / Laterality Volume Narrative This result has an attachment that is no t available. Marcela Provider CV ECHO ORDERABLES documented in this encounter Visit Diagnoses Not on filedocumented in this encounter Care Teams Food Order Expediter Relationship Specialty Start Date End Date Toña Jones MD PCP - General Nephrology 11/25/11 01/01/14 Momo Forbes PCP - General Family Practice 01/02/14 [place] [id number] Ingrid Santana, RN Registered Nurse Transplant 02/10/12 documented as of this encounter
--- OUTSIDE RECORDS SUMMARY | 2022-05-24 11:58 | XMS_ITS | Encounter Summary ---
:1950 Author Organization [place] Address [facility] [place] [address] Care Team Providers Name Role Phone Toña [...] on filedocumented in this encounter Care Teams Coagulating Drying Supervisor Relationship Specialty Start Date End Date Toña Jones MD PCP - General Nephrology 11/25/11 01/01/14 Momo Forbes PCP - General Family Practice 01/02/14 [facility] [address] [place] [address] Ingrid Santana, RN Registered Nurse Transplant 02/10/12 documented as of this encounter
--- OUTSIDE RECORDS SUMMARY | 2022-05-24 11:58 | XMS_ITS | Encounter Summary ---
:1950 Author Organization [place] Address [address] [place] [address]. [place] [address] Care Team Providers Name Role Phone Toña Jones MD Primary Care Provider Ingrid Santana RN Unavailable Unavailable Momo Forbes Primary Care Provider Encounter Details Date Type Department Care Team Description 01/28/1998 [facility] Cesar Burton [facility] [address] [place], [place] [address] (Wo rk) Social History Tobacco Use Types Packs/Day Years Used Date Never Assessed Sex Assigned at Date Recorded Not on file documented as of this encounter Plan of Treatment Not on filedocumented as of this encounter Visit Diagnoses Not on filedocumented in this encounter Care Teams Collections Professional Relationship Specialty Start Date End Date Toañ Jones MD PCP - General Nephrology 11/25/11 01/01/14 Momo Forbes PCP - General Family Practice 01/02/14 [facility] [address] [place] [address] Ingrid Santana, RN Registered Nurse Transplant 02/10/12 documented as of this encounter
--- OUTSIDE RECORDS SUMMARY | 2022-05-24 11:58 | XMS_ITS | Encounter Summary ---
:1950 Author Organization [place] Address [facility] [place] [address] Care Team Providers Name Role Phone Toña Jones MD Primary Care Provider Ingrid Santana RN Unavailable Unavailable Encounter Details Date Type Department Care Team Description 12/07/2011 Orders Only Nephrology Chucho Joshi MD Dialysis patient (H) 2nd Floor, Clinic 2A [address] [place] (Primary Dx) Tommy [address] [place] [address] [place], [place] [phone] (Wo rk) [phone] Social History Tobacco Use Types Packs/Day Years Used Date Never Assessed Sex Assigned at Date Recorded Not on file documented as of this encounter Plan of Treatment Not on filedocumented as of this encounter Visit Diagnoses Diagnosis Dialysis patient (H) - Primary Renal dialysis status documented in this encounter Care Teams Mercury Recoverer Relationship Specialty Start Date End Date Toña Jones MD PCP - General Nephrology 11/25/11 01/01/14 Ingrid Santana, RN Registered Nurse Transplant 02/10/12 documented as of this encounter
--- OUTSIDE RECORDS SUMMARY | 2022-05-24 11:58 | XMS_ITS | Encounter Summary ---
:1950 Author Organization [place] Address [facility] [place] [address] Care Team Providers Name Role Phone Toña [...] on filedocumented in this encounter Care Teams Resistor Inspector Relationship Specialty Start Date End Date Toña Jones MD PCP - General Nephrology 11/25/11 01/01/14 Momo Forbes PCP - General Family Practice 01/02/14 [facility] [address] [place] [address] Ingrid Santana, RN Registered Nurse Transplant 02/10/12 documented as of this encounter
--- OUTSIDE RECORDS SUMMARY | 2022-05-24 11:58 | XMS_ITS | Encounter Summary ---
:1950 Author Organization [place] Address [address] [place] [address] Care Team Providers Name Role Phone Unavailable Primary Care Provider Unavailable Encounter Details Date Type Department Care Team Description 07/30/2009 Results [facility] Results [address] DEMARCO CRUM [id number] Social History Tobacco Use Types Packs/Day Years Used Date Never Assessed Sex Assigned at Date Recorded Not on file documented as of this encounter Plan of Treatment Not on filedocumented as of this encounter Procedures Procedure Name Priority Date/Time Associated Diagnosis Comme [facility] RT DUPLEX Routine 07/30/2009 12:32 PM Results for this EXTREM VENOUS,UNI MERRY GO ROUND ATTENDANT procedure are in OR LTD the results section. documented in this encounter Results RT DUPLEX EXTREM VENOUS,UNI OR LTD (07/30/2009 12:32 PM MERRY GO ROUND ATTENDANT) Specimen (Source) Anatomical Collection Method Collection Time Re ceived Time Location / / Volume Laterality 07/30/2009 12:32 PM MERRY GO ROUND ATTENDANT Impressions RADIOLOGY RESULTS - 07/30/2009 4:21 PM [...]
--- OUTSIDE RECORDS SUMMARY | 2022-05-24 11:58 | XMS_ITS | Encounter Summary ---
:1950 Author Organization [place] Address [address] [place] [address]. [place] [address] Care Team Providers Name Role Phone Toña [...] on filedocumented in this encounter Care Teams Manufacturing Advisor Relationship Specialty Start Date End Date Toña Jones MD PCP - General Nephrology 11/25/11 01/01/14 Momo Forbes PCP - General Family Practice 01/02/14 [facility] [address] [place] [address] Siers, Ingrid A, RN Registered Nurse Transplant 02/10/12 documented as of this encounter
--- OUTSIDE RECORDS SUMMARY | 2022-05-24 11:58 | XMS_ITS | Encounter Summary ---
:1950 Author Organization [place] Address [address] [place] [address]. [place] [address] Care Team Providers Name Role Phone Toña [...] on filedocumented in this encounter Care Teams Edi Architect Relationship Specialty Start Date End Date Toña Jones MD PCP - General Nephrology 11/25/11 01/01/14 Momo Forbes PCP - General Family Practice 01/02/14 [facility] [address] [place] [address] Siers, Ingrid A, RN Registered Nurse Transplant 02/10/12 documented as of this encounter
--- OUTSIDE RECORDS SUMMARY | 2022-05-24 11:58 | XMS_ITS | Encounter Summary ---
:1950 Author Organization [place] Address [address] [facility] [place] [address] Care Team Providers Name Role Phone Toña [...] - HIM SCAN - 11/02/2005 8:27 AM DATE PULLER ARCHIVE LAB RESULT - HIM SCAN - 11/02/2005 8:25 AM DATE PULLER ARCHIVE documented in this encounter Results LAB RESULT - HIM SCAN - ARCHIVE (11/02/2005 8:27 AM DATE PULLER) Specimen (Source) Anatomical Location Collection Method / Collectio n Time Received Time / Laterality Volume Narrative This result has an attachment that is no t available. Marcela Provider LAB - BLOOD ORDERABLES LAB RESULT - HIM SCAN - ARCHIVE (11/02/2005 8:25 AM DATE PULLER) Specimen (Source) Anatomical Location Collection Method / Collectio n Time Received Time / Laterality Volume Narrative This result has an attachment that is no t available. Marcela Provider LAB - BLOOD ORDERABLES documented in this encounter Visit Diagnoses Not on filedocumented in this encounter Care Teams Skin Piler Relationship Specialty Start Date End Date Toña Jones MD PCP - General Nephrology 11/25/11 01/01/14 Momo Forbes PCP - General Family Practice 01/02/14 [place] [address] Ingrid Santana, RN Registered Nurse Transplant 02/10/12 documented as of this encounter
--- OUTSIDE RECORDS SUMMARY | 2022-05-24 11:58 | XMS_ITS | Encounter Summary ---
:1950 Author Organization [place] Address [address] [place] [address]. [place] [address] Care Team Providers Name Role Phone Toña [...] on filedocumented in this encounter Care Teams Seam Finisher Relationship Specialty Start Date End Date Toña Jones MD PCP - General Nephrology 11/25/11 01/01/14 Momo Forbes PCP - General Family Practice 01/02/14 [facility] [address] [place] [address] Siers, Ingrid A, RN Registered Nurse Transplant 02/10/12 documented as of this encounter
== END 2022-05-24 11:43 | disposition home or self-care (01) ==
LOC: WOUND 11:42
PROVIDERS: PCP Family Medicine; Visit Provider Surgery
DX: L89.313 Pressure ulcer of right buttock, stage 3 (principal)
CPT/HCPCS: 99212

== ENCOUNTER 2022-05-28 11:10 | Outpatient (CLI) | payer MEDICARE, BC, SELFPAY ==
--- OUTSIDE RECORDS SUMMARY | 2022-05-28 11:15 | XMS_ITS | Continuity of Care Document ---
:1950 Author Organization [facility] Address [address] [address] [place] [address] Phone Care Team Providers Name Role Phone [...] Information Information [facility], 1 [address] [address], [place], [place], [id number], [place] tel:[phone] DEMARCO Cross No Darling MICHELE Referring [facility] Information Davis. Pro vider: [facility], Hosp [address] [place] [address], [address] [place], [address] [facility] [address], [place], [place], [facility] [id number], [place], [address], [place] [id number], [place] tel:+ . , [place], [id number] tel:[phone] . tel:[phone] [facility] Pancreas Nesset [facility] cyst Joan. [address] Health [facility], [address] [place], [address], [address], [place] [facility], [place], [id number], [id number], [place]. tel:+ tel:[phone] [facility] [place] Pancreas December- Nesset [facility] cyst Joan. [address] [place]ounces [place], 1 [place], [address], [address], [facility], s, [place], [place], [id number], [id number], [place]. tel: tel:[phone] [facility] [place] Pancreas Sep- Nesset [facility] cyst Joan. [address] [facility], [address] [place] [address] [place], [address], [address], [facility], s, [place], [place], [id number], [id number], [place]. tel: [phone] Subsqt [facility] Cross No Sep- Nesset BIOCHEMIST Referring Hosp-da E&m [facility] Information Joan. 20 09 Provider: [facility], Hosp [address] [place] [address] NE, Aren CONTAINER COORDINATOR [address], [address], M, [address] [facility] [address], [place], [place], [place], [place], [id number], [id number], [place], [address]. [place]. tel:+50 tel: tel:[phone] [id number] Init Hosp-da [facility] Cross No Aug- Prem MICHELE Referri ng E&m Mod [facility] Information Angelina. 3001 P rovider: [facility], Hosp [address] [place] [address] NE, Arendt CONTAINER COORDINATOR [address], [address], M, [address] [facility] [address], [place], [place], [place], [place], [id number], [id number], [place], [address]. [place]. tel:+50 tel: tel:[phone] [id number] Family History Family Member Type Diagnosis Age [...]
--- OUTSIDE RECORDS SUMMARY | 2022-05-28 11:15 | XMS_ITS | Encounter Summary ---
:1950 Author Organization [place] Address [address] [place] [address] Care Team Providers Name Role Phone Momo Forbes Primary Care Provider Joseph Quintana MD Unavailable Encounter Details Date Type Department Care Team Description 01/19/2022 External Order [facility] Outside, Provide r Results Molecular Diagnostic s [address] [place] [address] Social History Tobacco Use Types Packs/Day Years [...] with Microscopic (01/19/2022 11:16 AM CDT) [facility] gist Method Time Signature Color Urine YEL YELLOW NON-INTERFAC (External) ED (ONBASE SCANS) Appearance Urine CLEAR CLEAR NON-INTERFAC (External) ED (ONBASE SCANS) Glucose Urine 2+ NEGATIVE NON-INTERFAC (External) ED (ONBASE SCANS) Bilirubin Urine NEG NEGATIVE NON-INTERFAC (External) ED (ONBASE SCANS) Ketones Urine NEG NEGATIVE NON-INTERFAC (External) ED (ONBASE SCANS) Specific [place] 1.010 1.005 - NON-INTERFAC Urine (External) 1.030 [...] on filedocumented in this encounter Care Teams Parole Hearing Officer Relationship Specialty Start Date End Date Momo Forbes PCP - General Family Practice 01/02/14 [facility] [address] [place] [address] Joseph Quintana, Assigned Nephrology 03/29/[address] [place] [address] [address] [place], [place] [address] documented as of this encounter
--- OUTSIDE RECORDS SUMMARY | 2022-05-28 11:15 | XMS_ITS | Clinical Summary ---
:1950 Author Organization [place] Address [facility] [place] [address] Care Team Providers Name Role Phone Momo [...] Problem list name updated by automated p [employer]. Provider to review Gout 12/02/2011 Peripheral neuropathy 12/02/2011 Diabetic retinopathy 12/02/2011 HTN, kidney transplant related 12/02/2011 Overview: Problem list name updated by automated p [employer]. Provider to review DM (diabetes mellitus), type 2 12/02/2011 History of tobacco use 12/02/2011 Thrombocytopenia 12/02/2011 Malaise and fatigue 12/02/2011 Overview: Problem list name updated by automated p [employer]. Provider to review Depression Resolved Problems Problem [...] Comments Blood Pressure 169/76 10/09/2019 2:35 PM DIE BARBER Pulse 67 10/09/2019 2:35 PM DIE BARBER Temperature 36.5 ??C (97.7 ??F) 10/17/2018 1:54 PM DIE BARBER Respiratory Rate 18 10/25/2016 4:39 PM DIE BARBER Oxygen Saturation 95% 10/09/2019 2:35 PM DIE BARBER Inhaled Oxygen Concentration - - Weight 132.5 kg (292 lb 1.6 oz) 10/09/2019 2:35 PM DIE BARBER Height 182.9 cm (6') 10/10/2017 2:25 PM DIE BARBER Body Mass Index 39.62 10/10/2017 2:25 PM DIE BARBER Plan of Treatment Health Maintenance Due Date [...] this topic Medical Devices Explanted Type Area Limnologist Device Shelf Model / Identifier Expiration Serial / Date Lot Stent Ureteral Childress Renal Transplant [id number] Right: [employer] 11/19/2016 [id number] / Implanted: Qty: 1 on 02/02/2014 by Migel Viveros MD at [facility] [employer] / Explanted: Qty: 1 on 04/01/2014 by Celina Helton MD at [facility] [id number] Procedures Procedure Name Priority Date/Time Associated Comments [...] Platelets & Differential (04/29/2022 11:40 AM CDT) [facility] gist Method Time Signature WBC Count [...] LAB - URINE ORDERABLES Performing Organization Address [facility] Phon e Number BREEZE PFT NON-INTERFACED (ONBASE [...] Address T ype Group Dates MEDICARE MEDICARE [id number] 2011-Prese [phone] ATTN [place] Medicare nt 40 [address] [place] [address] BCBS [place]BS [place] [id number] 2016-Prese [phone] [address] [address] Indemnity nt 00 [place] [address] Diego Guthrie Personal/Family Self [address] [place] (Home) [facility] [address] Advance Directives For more information, please contact: [phone] Latest Code Status on File Code Status Date Activated Date Inactivated Comments Full Code 04/01/2014 9:03 AM Full Code 02/08/2014 7:12 AM 04/01/2014 9:03 AM Full Code 02/03/2014 12:56 AM 02/08/2014 7:12 AM Care Teams Lobbyist Relationship Specialty Start Date End Date Momo Forbes PCP - General Family Practice 01/02/14 [facility] [address] [place] [address] Joseph Quintana, Assigned Nephrology 03/29/21 MD Provider [address] [place] [address] [address] [place] [address]
--- OUTSIDE RECORDS SUMMARY | 2022-05-28 11:15 | XMS_ITS | Encounter Summary ---
:1950 Author Organization [place] Address [facility] [place] [address] Care Team Providers Name Role Phone Momo Forbes Primary Care Provider Joseph Quintana MD Unavailable Reason for Visit Reason Onset Date Comments Voicemail 04/13/2022 Encounter Details Date Type Department Care Team Description 04/13/2022 Telephone [facility] Transplant Obdulia Peacock, BOGDAN Vo[facility]email Clinic [address] [place] [address] [phone] Social History Tobacco Use Types Packs/Day [...] to patient via mail Gretta Peacock RN Border Patrol Agent [phone] Telephone Encounter - Adriana Raza - 04/13/2022 2:31 PM CDT Voicemail Date/Time: 04/13/22 2:27 pm Reason for call: Diego received a letter stating we have been trying ot reach him so he was responding documented in this encounter Plan of Treatment Not on filedocumented as of this encounter Visit Diagnoses Not on filedocumented in this encounter Care Teams Regional Driver Relationship Specialty Start Date End Date Momo Forbes PCP - General Family Practice 01/02/14 [facility] [address] [place] [address] Joseph Quintana, Assigned Nephrology 03/29/21 MD Provider [address] [place] [address] documented as of this encounter
--- OUTSIDE RECORDS SUMMARY | 2022-05-28 11:15 | XMS_ITS | Encounter Summary ---
:1950 Author Organization [place] Address [facility] [place] [address] Care Team Providers Name Role Phone Momo Forbes Primary Care Provider Joseph Quintana MD Unavailable Reason for Visit Reason Onset Date Comments Left Message To Call 05/06/2022 Left 05/06/2022 at 11:55PM., Wanted to discuss lab results Encounter Details Date Type Department Care Team Description 05/06/2022 Telephone [facility] Gretta Peacock RN Left Message To Call Transplant Clinic (Left 05/06/[address] [place] [address] SE 11:55PM., Wanted to [place], [place] discuss lab results) [address] Social History [...] filedocumented in this encounter Care Teams Field Attendant Relationship Specialty Start Date End Date Momo Forbes PCP - General Family Practice 01/02/14 [facility] [address] [place] [address] Joseph Quintana, Assigned Nephrology 03/29/21 MD Provider [address] [facility] [address] [facility] [address] [place] [address] documented as of this encounter
--- OUTSIDE RECORDS SUMMARY | 2022-05-28 11:15 | XMS_ITS | Encounter Summary ---
:1950 Author Organization [place] Address [address] [place] [address]. [place] [address] Care Team Providers Name Role Phone Momo Forbes Primary Care Provider Joseph Quintana MD Unavailable Reason for Visit Reason Onset Date Comments Erroneous encounter-disregard 05/02/2022 Encounter Details Date Type Department Care Team Description 05/02/[address] [facility] Gretta Peacock RN Baldev eo Transplant Clinic encounter-disregard [address] [place] [address] Social History Tobacco Use Types [...] filedocumented in this encounter Care Teams Welder Repair Relationship Specialty Start Date End Date Momo Forbes PCP - General Family Practice 01/02/14 [facility] [address] [place] [address] Joseph Quintana, Assigned Nephrology 03/29/21 MD Provider 7 [facility] EM[facility] [address] [facility] [address] [place] [address] documented as of this encounter
--- OUTSIDE RECORDS SUMMARY | 2022-05-28 11:15 | XMS_ITS | Clinical Summary ---
:1950 Author Organization [facility] [place] [address] Care Team Providers Name Role Phone Momo Forbes MD Primary Care Provider [phone] Allergies No known active allergies Medications [...] infection (HC) use [facility] Right foot wound debridement with application of integra bilayer matrix and wound vac, 10.0 cm x 5.0 cm x 0.6 cm. M- W-F dressing changes gabapentin Take 1 capsule by 21 capsule 0 09/26/2020 Active (NEURONTIN) 300 mg mouth 3 times capsuleIndications: daily. Indications: neuropathic pain neuropathic pain durable medical Custom [place] boot to 1 Each 0 11/26/2020 Active [...] Team Description 04/08/2022 Lab Requisition Unknown, Doctor from Last 3 Months Immunizations Name Administration [...] Visit Angie Chatterjee, DPChance [address] [place] [address] (Wo rk) Health Maintenance Due Date Last [...] Hepatitis C screening for age Completed 07/29/2014, 04/28/ 2006 18-79 AAA screening age 55-77 Completed 09/17/2020 Goals Goal Patient Goal Associated Recent Patient-Stated? Author Type Problems Progress BLOOD PRESSURE Blood Pressure No McInty re, - MAINTAINS BP Momo less than MD Christoph 140/90 Medical Devices Implanted Type Area Water Chaser Device Shelf Model / Identifier Expiration Date Ser ial / Lot Drsg Wound 4x5in Matrix Bilayer Right: 08/21/2020 [id number] / Implanted: Qty: 1 on 09/23/2020 by Araceli Fowler DPM at [facility] / [id number] Description: DRSG WOUND 4X5IN MATRIX JYOTI BHAVIK Procedures Procedure Name Priority Date/Time Associated Diagnosis Comme nts LAB TRACKING EVENT Routine 04/07/2022 11:40 AM CDT PATH TISSUE EXAM Routine 04/07/2022 11:40 AM Resu lts for this CDT procedure are i n the results section. from Last 3 Months Results LAB TRACKING EVENT (04/07/2022 11:40 AM CDT) Specimen Anatomical Collection Method Collection Time Receive d Time (Source) Location / / Volume Laterality Other (Other) Client Collect / 04/07/2022 11:40 2021 3:34 Unknown AM CDT PM CDT Doctor Unknown LAB BILL ONLY Performing Organization Address City/State/ZIP Code Phon e Number [facility] [address] [place] [address] LABORATORY-CENTRAL 2000 LABORATORY PATH TISSUE EXAM (04/07/2022 11:40 AM CDT) Component Value Ref Test Analysis Performed At [facility] gist Range Method Time Signature Case Report Pathology Report ?Case: [id number] ? 04/12/2022 [facility] Authorizing Provider: ??Unkn own, Doctor ?Collected: ? 04/07/2022 1140 ? 11:31 AM ARNAUDO TESSA Ordering Location: ? [facility] C[facility]TRAL LAB ?Received: ?04/08/2022 1609 ? CDT NT RAL Pathologist: ? Ricky Lisa ? LABORATORY ? MD Jessie ? Specimen: ?Right Clavicl e ? Final A) SKIN, RIGHT CLAVICLE, WOUND, BIOPSY: 04/12/2022 [facility] Electronically Diagnosis 1. Ulceration with serum crust and underlying granulat ion tissue 11:31 AM LABORATORY-CE signed by 2. Negative for malignancy CDT NTR AL Ricky Lisa LABORATORY Jose mcgill MD on 04/12/20 22 at 11:31 AM Comment The presence 04/12/2022 [facility] of blue and 11:31 AM LABORATORY-CE green ink are CDT NTRAL confirmed on LABORATORY tissue sections. Clinical Mr. Guthrie is 04/12/2022 [facility] Information a 72 y.o. with 11:31 AM LABORATORY-CE a right CDT NTRAL clavicle LABORATORY wound, post excision site. Gross A) Received in formalin, lab eled with the patient's name and right clavicle, are two skin punch biopsies. The first is a 0.3 x 0.3 x 0.4 cm skin punch biopsy. The skin surface displays a 0.2 x 0.1 cm 04/12/2022 [facility] Description depressed brown possible les ion. The [...] LABORATORY LH 04/08/2022 Microscopic The final 04/12/2022 [facility] Description diagnosis is 11:31 AM LABORATORY-CE based on CDT NTRAL microscopic LABORATORY examination of appropriate sections of all specimens. Additional 04/12/2022 [facility] Information Interpreted at [facility], Central Laboratory - [address], [place] [address] 11:31 AM LABORATORY-CE CDT NTRAL LABORATORY Specimen Anatomical Collection Method Collection Time Receive d Time (Source) Location / / Volume Laterality Other (Right 04/07/2022 11:40 04/08/2022 4:09 Clavicle) AM CDT PM CDT Doctor Unknown PATHOLOGY/CYTOLOGY Performing Organization Address City/State/ZIP Code Phon e Number [facility] [employer] [address] [place] [address] LABORATORY-CENTRAL 2000 LABORATORY from Last 3 Months Additional Health Concerns Infection Onset Date Last Indicated MRSA ClearanceComment: If >12 months sin ce positive culture, precautions can be discontinued if patient has no MRSA risk factors. 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 right check exclusions for contact precaution dis continuation (if > 12 months since positive culture): resides in acute/longwall headgate operator care, receiving hemodialysis, has chronic open wounds/skin damage, has long-te rm percutaneous indwelling medical devic es Exclusions for nares collection (if <12 months since positive culture) include all of the previous exclusions plus patients on antibiotics 7 days prior to collection Insurance Payer Benefit Plan / Subscriber ID Effective Phone Address T ype Group Dates MEDICARE PART MEDICARE PART A [id number] 2011-Prese A TTN: CLAIMS A - HB USE HB ONLY nt [address] [place] [address] MEDICARE PART MEDICARE PART B [id number] 2012-Pres A TTN: CLAIMS B - HB USE HB ONLY ent [address] [place] [address] MEDICARE - PB MEDICARE PB [id number] 2014-Prese ATTN: CLAIMS USE ONLY ONLY nt [address] [place] [address] BLUE CROSS BLUE CROSS OF [id number] 2016-Prese [address] [place] [address] BLUE CROSS BLUE CROSS OF [id number] 2013-Prese [address] [place] [address] MEDICARE PPS HC MEDICARE PPS [id number] 2011-Prese [address] [place] [address] (Home) [place] [address] Diego Guthrie Personal/Family Self [phone] (Home) [place] [address] Diego Guthrie Personal/Family Self [address] (Home) [place] [address] [place] [employer] Self [address] (Home) [facility] [place] [address] Advance Directives Documents on File Type Date Recorded Patient Chip Bin Operator Explanati on POLST 09/26/2020 Latest Code Status [...] AM Code Status Discussion: Discussed Care Teams First Line Production Supervisor Relationship Specialty Start Date End Date Momo Forbes MD PCP - General Family Practice 01/22/211999 [place] [address]
--- OUTSIDE RECORDS SUMMARY | 2022-05-28 11:15 | XMS_ITS | Encounter Summary ---
:1950 Author Organization [place] Address [facility] [place] [address] Care Team Providers Name Role Phone Momo Forbes Primary Care Provider Joseph Quintana MD Unavailable Reason for Visit Reason Onset Date Comments Transplant 01/21/2022 Hyperglycemia, eleva moni [facility] Encounter Details Date Type Department Care Team Description 01/21/2022 Telephone [facility] Gretta Peacock RN Trans plant Transplant Clinic (Hyperglycemia, elevated [address] [facility]) [place] [address] Social History Tobacco Use Types [...] 12:07 PM CDT ISSUE: trend up in [facility], hyperglycemia OUTCOME: phone call attempted X3. Will send letter via mail. Gretta Peacock RN Investor Relations Associate [phone] documented in this encounter Plan of Treatment Not on filedocumented as of this encounter Visit Diagnoses Not on filedocumented in this encounter Care Teams Network Professional Relationship Specialty Start Date End Date Momo Forbes PCP - General Family Practice 01/02/14 [facility] [address] [place] [address] Joseph Quintana, Assigned Nephrology 03/29/21 MD Provider [address] [place] [address] [address] [place] [address] documented as of this encounter
--- OUTSIDE RECORDS SUMMARY | 2022-05-28 11:15 | XMS_ITS | Encounter Summary ---
:1950 Author Organization [place] Address [address] [place] [address] Care Team Providers Name Role Phone Momo Forbes Primary Care Provider Joseph Quintnaa MD Unavailable Reason for Visit Reason Onset Date Comments Transplant Lab 05/04/2022 Elevated serum creat inine and proteinuria Encounter Details Date Type Department Care Team Description 05/04/2022 Telephone [facility] Gretta Peacock RN Trans plant Lab (Elevated Transplant Clinic serum creatinine and [address] proteinuria) [place] [address] Social History Tobacco Use Types [...] on filedocumented in this encounter Care Teams Cosmetic Dentist Relationship Specialty Start Date End Date Momo Forbes PCP - General Family Practice 01/02/14 [facility] [address] [place] [address] Joseph Quintana, Assigned Nephrology 03/29/[address] [place] [address] [address] [place] [address] documented as of this encounter
--- OUTSIDE RECORDS SUMMARY | 2022-05-28 11:15 | XMS_ITS | Encounter Summary ---
:1950 Author Organization [place] Address [address] [place] [address] Care Team Providers Name Role Phone Momo Forbes Primary Care Provider Joseph Quintana MD Unavailable Encounter Details Date Type Department Care Team Description 04/29/2022 External Order [facility] Outside, Provide r Results Molecular Diagnostic s [address] [place] [address] Social History Tobacco Use Types Packs/Day Years [...] on filedocumented in this encounter Care Teams Chips Screen Tender Relationship Specialty Start Date End Date Momo Forbes PCP - General Family Practice 01/02/14 [facility] [address] [place] [address] Joseph Quintana, Assigned Nephrology 03/29/21 Provider 717 [facility] 353 [facility] [address] [place] [address] documented as of this encounter
--- OUTSIDE RECORDS SUMMARY | 2022-05-28 11:16 | XMS_ITS | Encounter Summary ---
:1950 Author Organization [place] Address [facility] [place] [address] Care Team Providers Name Role Phone Momo Forbes A Primary Care Provider Encounter Details Date Type Department Care Team Description 01/30/[address] [facility] Transplant Viv Torres, BOGDAN [place] [phone] Social History Tobacco Use Types Packs/Day [...] Message Received: Today Beny Staton, [facility] Barbie Ugalde, RN Diego has not ordered tacro 0.5mg in over a year. ??He just ordered 1mg today but not the 0.5mg. Beny Staton [facility] Specialty Pharmacist [phone] DE ALCOHOLIZER task: Can you please call Diego to find out what dose of tacrolimus he is taking and notify coordinator if different than what is prescribed. Recommend repeat tacrolimus level for previously elevated level 7.3, goal 4-6. Thank you, Barbie Ugalde RN, BSN Solid Organ Transplant, Post Kidney and Pancreas Transplant Decision Support Manager [phone] Telephone Encounter - Viv Torres RN - [...] transplant documented in this encounter Care Teams Motion Picture Printer Relationship Specialty Start Date End Date Momo Forbes PCP - General Family Practice 01/02/14 [facility] [address] [place] [id number] documented as of this encounter
--- OUTSIDE RECORDS SUMMARY | 2022-05-28 11:16 | XMS_ITS | Encounter Summary ---
:1950 Author Organization [place] Address [facility] [place] [address] Care Team Providers Name Role Phone ForbesMomo prakash A Primary Care Provider Reason for Visit Reason Onset Date Comments Transplant 07/11/2020 Encounter Details Date Type Department Care Team Description 07/11/2020 Telephone [facility] BOGDAN Nam [address] [place] [address] [phone] Social History Tobacco Use Types Packs/Day [...] Barbie Ugalde RN - 07/11/2020 2:11 PM TARP REPAIRER ISSUE: Potassium 5.2 on 07/08/20. PLAN: Assess for high dietary intake of potassium. Encouraged Diego to reduce the amount of bananas and potatoes he admitted to eating high amounts of. OUTCOME: Please have pt repeat BMP in 1 week. Orders sent REPAIRER Telephone Encounter - Barbie Ugalde RN - 07/11/2020 1:41 PM TARP REPAIRER ISSUE: Tacrolimus IR level 2.2 on 07/08/20 [...] for repeatlabs. Patient voiced understanding of plan. REPAIRER documented in this encounter Plan of Treatment Not on filedocumented as of this encounter Visit Diagnoses Diagnosis -donor kidney transplant recipie nt Kidney replaced by transplant Kidney transplanted Kidney replaced by transplant documented in this encounter Care Teams Arborist Relationship Specialty Start Date End Date Momo Forbes PCP - General Family Practice 01/02/[address] [address] documented as of this encounter
--- OUTSIDE RECORDS SUMMARY | 2022-05-28 11:16 | XMS_ITS | Encounter Summary ---
:1950 Author Organization [place] Address [facility] [place] [address] Care Team Providers Name Role Phone Momo Forbes Primary Care Provider Reason for Visit Reason Onset Date Comments Refill Request 03/18/2020 Mycophenolate and Pr ograf 1mg Encounter Details Date Type Department Care Team Description 03/18/2020 Refill [facility] Joseph Quintana Refill R equest Nephrology Clinic MD Herminio (Mycophenolate and [place] [address] [place] [address] SE Prograf 1mg) [address] [facility] 353 [facility] [address] [place], [place] [phone] Social History Tobacco Use Types Packs/Day Years [...] transplant documented in this encounter Care Teams Consumer Safety Inspector Relationship Specialty Start Date End Date Momo Forbes PCP - General Family Practice 01/02/14 [facility] [address] [place] [address] documented as of this encounter
--- OUTSIDE RECORDS SUMMARY | 2022-05-28 11:16 | XMS_ITS | Encounter Summary ---
:1950 Author Organization [place] Address [facility]0 [facility] [place] [address] Care Team Providers Name Role Phone Momo Forbes Primary Care Provider Joseph Quintana MD Unavailable Reason for Visit Reason Onset Date Comments Transplant Lab 12/10/2021 Encounter Details Date Type Department Care Team Description 12/10/2021 Telephone [facility] Transplant Mati Recinos RN Transplant Lab Clinic [address] [place] [address] [phone] Social History Tobacco Use Types Packs/Day [...] on filedocumented in this encounter Care Teams Tube Cleaning Operator Relationship Specialty Start Date End Date Momo Forbes PCP - General Family Practice 01/02/14 [facility] [address] [place] [address] Joseph Quintana, Assigned Nephrology 03/29/21 MD Provider 717 [facility] 353 [facility] [address] [place] [address] documented as of this encounter
--- OUTSIDE RECORDS SUMMARY | 2022-05-28 11:16 | XMS_ITS | Encounter Summary ---
:1950 Author Organization [place] Address [facility] [place] [address] Care Team Providers Name Role Phone Momo Forbes Primary Care Provider Joseph Quintana MD Unavailable Encounter Details Date Type Department Care Team Description 01/07/2021 External Order [facility] Outside, Provider Results Transplant Clinic [address] [place] [phone] Social History Tobacco Use Types Packs/Day [...] on filedocumented in this encounter Care Teams Advanced Practice Professional Relationship Specialty Start Date End Date Momo Forbes PCP - General Family Practice 01/02/14 [facility] [address] [place] [address] Joseph Quintana, Assigned Nephrology 03/29/21 MD Provider [address] [place] [address] [address] [place] [address] documented as of this encounter
--- OUTSIDE RECORDS SUMMARY | 2022-05-28 11:16 | XMS_ITS | Encounter Summary ---
:1950 Author Organization [place] Address [facility] [place] [address] Care Team Providers Name Role Phone Momo Forbes Primary Care Provider Joseph Quintana MD Unavailable Encounter Details Date Type Department Care Team Description 08/08/2020 External Order [facility] Outside, Provider Results Transplant Clinic [address] [place] [phone] Social History Tobacco Use Types Packs/Day [...] 08/08/2020 11:43 Results f or this AM TERRESTRIAL ECOLOGIST procedure are i n the results section. TACROLIMUS BY TANDEM Routine 08/08/2020 11:34 Res ults for this MASS SPECTROMETRY AM TERRESTRIAL ECOLOGIST procedure are in the results section. LIPID PROFILE Routine 08/08/2020 11:34 Results fo r this AM TERRESTRIAL ECOLOGIST procedure are i n the results section. ALT Routine 08/08/2020 11:34 Results for this AM TERRESTRIAL ECOLOGIST procedure are i n the results section. BASIC METABOLIC PANEL Routine 08/08/2020 11:34 Re sults for this AM TERRESTRIAL ECOLOGIST procedure are i n the results section. documented in this encounter Results (ABNORMAL) Hemoglobin A1c (08/08/2020 11:43 AM TERRESTRIAL ECOLOGIST) Analysis Performed At Patho logist Time Signature Hemoglobin A1C 10.2 (H) <=6.9 % LABDE SCAN (External) Specimen (Source) Anatomical Collection Method Collection Time Re ceived Time Location / / Volume Laterality Blood specimen 08/08/2020 11:43 (specimen) AM TERRESTRIAL ECOLOGIST Narrative [facility] - 08/11/2020 1:28 PM TERRESTRIAL ECOLOGIST Verified by Praful Huff on 2019. Patient Reported LAB - BLOOD ORDERABLES Performing Organization Address City/State/ZIP Code Phon e Number [facility] LABDE SCAN Tacrolimus level (08/08/2020 11:34 AM TERRESTRIAL ECOLOGIST) athologist Signature Tacrolimus(FK-5 11.7 See scan LABDE SCAN 06) (External) ng/mL Specimen (Source) Anatomical Collection Method Collection Time Re ceived Time Location / / Volume Laterality Blood specimen 08/08/2020 11:34 (specimen) AM TERRESTRIAL ECOLOGIST Narrative [facility] - 08/11/2020 1:28 PM TERRESTRIAL ECOLOGIST Verified by Praful Huff on 2019. Patient Reported LAB - BLOOD ORDERABLES Performing Organization Address City/State/ZIP Code Phon e Number [facility] LABDE SCAN (ABNORMAL) Lipid Profile (08/08/2020 11:34 AM TERRESTRIAL ECOLOGIST) [facility] gist Method Time Signature Cholesterol 79 (L) 90 - 200 LABDE SCAN (External) MG/DL Triglycerides 86 40 - 197 LABDE SCAN (External) MG/DL LDL-Cholesterol 29 <100 mg/dL LABDE SCAN (External) HDL Cholesterol 33 (L) >=40 mg/dL LABDE SCAN (External) Specimen (Source) Anatomical Collection Method Collection Time Re ceived Time Location / / Volume Laterality Blood specimen 08/08/2020 11:34 (specimen) AM TERRESTRIAL ECOLOGIST Narrative [facility] - 08/11/2020 1:28 PM TERRESTRIAL ECOLOGIST Verified by Praful Huff on 2019. Patient Reported LAB - BLOOD ORDERABLES Performing Organization Address City/State/ZIP Code Phon e Number [facility] LABDE SCAN ALT (08/08/2020 11:34 AM TERRESTRIAL ECOLOGIST) P athologist Signature ALT (External) 8 4 - 50 U/L LABDE SCAN Specimen (Source) Anatomical Collection Method Collection Time Re ceived Time Location / / Volume Laterality Blood specimen 08/08/2020 11:34 (specimen) AM TERRESTRIAL ECOLOGIST Narrative [facility] - 08/11/2020 1:28 PM TERRESTRIAL ECOLOGIST Verified by Praful Huff on 2019. Patient Reported LAB - BLOOD ORDERABLES Performing Organization Address City/State/ZIP Code Phon e Number [facility] LABDE SCAN (ABNORMAL) Basic metabolic panel (08/08/2020 11:34 AM TERRESTRIAL ECOLOGIST) P athologist Signature Glucose 119 (H) 60 [...] Laterality Blood specimen 08/08/2020 11:34 (specimen) AM TERRESTRIAL ECOLOGIST Narrative [facility] - 08/11/2020 1:28 PM TERRESTRIAL ECOLOGIST Verified by Praful Huff on 2019. Patient Reported LAB - BLOOD ORDERABLES Performing Organization Address City/State/ZIP Code Phon e Number [facility] LABDE SCAN documented in this encounter Visit Diagnoses Not on filedocumented in this encounter Care Teams Receiving Inspector Relationship Specialty Start Date End Date Momo Forbes PCP - General Family Practice 01/02/[address] [address] Joseph Quintana, Assigned Nephrology 03/29/21 MD Provider [address] [place] [address] documented as of this encounter
--- OUTSIDE RECORDS SUMMARY | 2022-05-28 11:16 | XMS_ITS | Encounter Summary ---
:1950 Author Organization [place] Address [facility] [place] [address] Care Team Providers Name Role Phone Momo Forbes Primary Care Provider Joseph Quintana MD Unavailable Reason for Visit Reason Onset Date Comments Medication Refill Refill Request 08/20/2021 Encounter Details Date Type Department Care Team Description 08/20/2021 Refill [facility] Joseph Quintana on Refill; Nephrology Clinic MD Herminio Refill Request [address] 909 [facility] 353 [facility] [address] [place], [place] [phone] Social History Tobacco Use Types Packs/Day Years [...] in this encounter Care Teams Director Of Technology Relationship Specialty Start Date End Date Momo Forbes PCP - General Family Practice 01/02/14 [facility] [address] [place] [address] Joseph Quintana, Assigned Nephrology 03/29/21 MD Provider [address] [place] [address] [address] [place] [address] documented as of this encounter
--- OUTSIDE RECORDS SUMMARY | 2022-05-28 11:16 | XMS_ITS | Encounter Summary ---
:1950 Author Organization [place] Address [facility] [place] [address] Care Team Providers Name Role Phone Momo Forbes Primary Care Provider Joseph Quintana MD Unavailable Reason for Visit Reason Onset Date Comments Transplant 12/02/2021 Encounter Details Date Type Department Care Team Description 12/02/2021 Telephone [facility] Transplant Obdulia Peacock, program facilitator Clinic [address] [place] [address] [phone] Social History Tobacco Use Types Packs/Day [...] to confirm he received message. Gretta Peacock program facilitatorBag Grader [phone] ADDENDUM: left message for patient stating he has active orders at preferred lab. Asked to please obtain a full set of transplant labs as soon as possible. Gretta Peacock program facilitatorBag Grader [phone] documented in this encounter Plan of Treatment Not on filedocumented as of this encounter Visit Diagnoses Not on filedocumented in this encounter Care Teams Lead Principal Technical Architect Relationship Specialty Start Date End Date Momo Forbes PCP - General Family Practice 01/02/14 [facility] [address] [place] [address] Joseph Quintana, Assigned Nephrology 03/29/[address] [place] [address] [address] [place] [address] documented as of this encounter
--- OUTSIDE RECORDS SUMMARY | 2022-05-28 11:16 | XMS_ITS | Encounter Summary ---
:1950 Author Organization [place] Address Counts include 234 beds at the [facility]0 [facility] [address] Care Team Providers Name Role Phone Momo Forbes Primary Care Provider Joseph Quintana MD Unavailable Encounter Details Date Type Department Care Team Description 01/27/2021 External Order [facility] Outside, Provider Results Transplant Clinic [address] [place] [phone] Social History Tobacco Use Types [...] Basic metabolic panel (01/27/2021 11:45 AM CDT) [facility] gist Method Time Signature Glucose [...] with platelets differential (01/27/2021 11:45 AM CDT) [facility] gist Method Time Signature WBC [...] in this encounter Care Teams Derrick Boat Operator Relationship Specialty Start Date End Date Momo Forbes PCP - General Family Practice 01/02/14 [facility] [address] [place] [address] Joseph Quintana, Assigned Nephrology 03/29/[address] [place] [address] [address] [place] [address] documented as of this encounter
--- OUTSIDE RECORDS SUMMARY | 2022-05-28 11:16 | XMS_ITS | Encounter Summary ---
:1950 Author Organization [place] Address [facility] [place] [address] Care Team Providers Name Role Phone Momo Forbes A Primary Care Provider Reason for Visit Reason Onset Date Comments Transplant Immunosuppression Management 07/03/2020 Late to refill Encounter Details Date Type Department Care Team Description 07/03/2020 Telephone [facility] Tram, Transplant Transplant Clinic Barbie Nam, Immunosuppression [address] [place] [address] RN Management (Late to [place], [place] refill) [phone] Social History Tobacco Use [...] Barbie Ugalde, BOGDAN - 07/03/2020 10:20 AM FOOTWEAR SALES ASSOCIATE Images from the original note were not [...] copy to patient so he is aware. 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
--- OUTSIDE RECORDS SUMMARY | 2022-05-28 11:16 | XMS_ITS | Encounter Summary ---
:1950 Author Organization [place] Address [facility] [place] [address] Care Team Providers Name Role Phone Momo Forbes Primary Care Provider Joseph Quintana MD Unavailable Encounter Details Date Type Department Care Team Description 05/26/2020 External Order [facility] Outside, Provider Results Transplant Clinic [address] [place] [phone] Social History Tobacco Use Types Packs/Day [...] with platelets differential (05/26/2020 10:25 AM CDT) [facility] Method Time Signature WBC Count 4.49 [...] filedocumented in this encounter Care Teams Quality Improvement Engineer Relationship Specialty Start Date End Date Momo Forbes PCP - General Family Practice 01/02/14 [facility] [address] [place] [address] Joseph Quintana, Assigned Nephrology 03/29/21 MD Provider 717 [facility] 353 [facility] 1932 [place], [place] [address] documented as of this encounter
--- OUTSIDE RECORDS SUMMARY | 2022-05-28 11:16 | XMS_ITS | Encounter Summary ---
:1950 Author Organization [place] Address [facility] [place] [address] Care Team Providers Name Role Phone Forbes, Momo He Primary Care Provider Encounter Details Date Type Department Care Team Description 10/23/2020 Telephone [facility] Barbie Ugalde Transplant Clinic BOGDAN Nam [address] [place], [place] [phone] Social History Tobacco Use [...] Barbie Ugalde RN - 10/23/2020 4:27 PM CLINICAL DATA RESEARCH Returned call and left second voicemail message. Patient mentioned in previous phone call he was interested in donating his body upon passing to [facility] for science. Please sent to following website for more information: [email or web address] ICAL DATA RESEARCH Telephone Encounter - Gladis Sosa RN - 10/23/2020 3:21 PM CST Patient Call: Voicemail Date/Time: 10/23/20 139pm Reason for call: Patient left a message requesting a call back ICAL DATA RESEARCH documented in this encounter Plan of Treatment Not on filedocumented as of this encounter Visit Diagnoses Not on filedocumented in this encounter Care Teams Rail Grinder Relationship Specialty Start Date End Date Momo Forbes PCP - General Family Practice 01/02/14 [facility] [address] [place] [address] documented as of this encounter
--- OUTSIDE RECORDS SUMMARY | 2022-05-28 11:16 | XMS_ITS | Encounter Summary ---
:1950 Author Organization [place] Address [facility] [place] [address] Care Team Providers Name Role Phone Momo Forbes Primary Care Provider Joseph Quintana MD Unavailable Encounter Details Date Type Department Care Team Description 07/08/2020 External Order [facility] Outside, Provider Results Transplant Clinic [address] [place] [phone] Social History Tobacco Use Types Packs/Day [...] 9:23 AM R esults for this DIFFERENTIAL WASTE HANDLING TECHNICIAN procedure are i n the results section. TACROLIMUS BY TANDEM Routine 07/08/2020 9:23 AM R esults for this MASS SPECTROMETRY WASTE HANDLING TECHNICIAN procedure are in the results section. PROTEIN RANDOM URINE Routine 07/08/2020 9:23 AM R esults for this WASTE HANDLING TECHNICIAN procedure are i n the results section. HEMOGLOBIN A1C Routine 07/08/2020 9:23 AM Results for this WASTE HANDLING TECHNICIAN procedure are i n the results section. HEMOGLOBIN A1C Routine 07/08/2020 9:23 AM Results for this WASTE HANDLING TECHNICIAN procedure are i n the results section. BASIC METABOLIC PANEL Routine 07/08/2020 9:23 AM Results for this WASTE HANDLING TECHNICIAN procedure are i n the results section. documented in this encounter Results (ABNORMAL) Protein random urine with Creat Ratio (07/08/2020 9:23 AM WASTE HANDLING TECHNICIAN) Analysis Performed At Patho logist Time Signature Protein Random 73 mg/dL LABDE SCAN Urine (External) Creatinine 65 mg/dL LABDE SCAN Urine mg/dL (External) Protein Total 1.12 (H) 0 - 0.19 LABDE SCAN Ur per Cr (External) Specimen (Source) Anatomical Collection Method Collection Time Re ceived Time Location / / Volume Laterality Urine specimen 07/08/2020 9:23 AM (specimen) WASTE HANDLING TECHNICIAN Narrative BREEZE PFT - 07/11/2020 11:13 AM WASTE HANDLING TECHNICIAN Verified by Praful Huff on 2019. Patient Reported LAB - URINE ORDERABLES Performing Organization Address City/State/ZIP Code Phon e Number [facility] LABDE SCAN (ABNORMAL) Hemoglobin A1c (07/08/2020 9:23 AM WASTE HANDLING TECHNICIAN) Analysis Performed At Patho logist Time Signature Hemoglobin A1C 12.3 (H) 0 - 5.6 % LABDE SCAN (External) Specimen (Source) Anatomical Collection Method Collection Time Re ceived Time Location / / Volume Laterality Blood specimen 07/08/2020 9:23 AM (specimen) WASTE HANDLING TECHNICIAN Narrative [facility] PFT - 07/11/2020 11:13 AM WASTE HANDLING TECHNICIAN Verified by Praful Huff on 2019. Patient Reported LAB - BLOOD ORDERABLES Performing Organization Address City/State/ZIP Code Phon e Number [facility] LABDE SCAN Tacrolimus level (07/08/2020 9:23 AM WASTE HANDLING TECHNICIAN) P athologist Signature Tacrolimus(FK- 2.2 See scanned LABDE SCAN 506) report ng/mL (External) Specimen (Source) Anatomical Collection Method Collection Time Re ceived Time Location / / Volume Laterality Blood specimen 07/08/2020 9:23 AM (specimen) WASTE HANDLING TECHNICIAN Narrative [facility] PFT - 07/11/2020 11:13 AM WASTE HANDLING TECHNICIAN Verified by Praful Huff on 2019. Patient Reported LAB - BLOOD ORDERABLES Performing Organization Address City/State/ZIP Code Phon e Number [facility] LABDE SCAN (ABNORMAL) Hemoglobin A1c (07/08/2020 9:23 AM WASTE HANDLING TECHNICIAN) Analysis Performed At [facility] logist Time Signature Hemoglobin A1C 12.3 (H) 0 - 5.6 % LABDE SCAN (External) Specimen (Source) Anatomical Collection Method Collection Time Re ceived Time Location / / Volume Laterality Blood specimen 07/08/2020 9:23 AM (specimen) WASTE HANDLING TECHNICIAN Narrative BREEZE PFT - 07/09/2020 11:03 AM WASTE HANDLING TECHNICIAN Verified by Andrade Barajas on 07/09/2020. Patient Reported LAB - BLOOD ORDERABLES Performing Organization Address [facility] Phon e Number BREEZE PFT LABDE SCAN (ABNORMAL) Basic metabolic panel (07/08/2020 9:23 AM WASTE HANDLING TECHNICIAN) Analysis Performed At [facility] logist Time Signature Calcium 10.1 8.4 [...] Laterality Blood specimen 07/08/2020 9:23 AM (specimen) WASTE HANDLING TECHNICIAN Narrative BREEZE PFT - 07/09/2020 11:02 AM WASTE HANDLING TECHNICIAN Verified by Andrade Barajas on 07/09/2020. Patient Reported LAB - BLOOD ORDERABLES Performing Organization Address City/[facility]/ZIP Code Phon e Number BREEZE PFT LABDE SCAN (ABNORMAL) CBC with platelets differential (07/08/2020 9:23 AM WASTE HANDLING TECHNICIAN) [facility] gist Method Time Signature WBC Count [...] Laterality Blood specimen 07/08/2020 9:23 AM (specimen) WASTE HANDLING TECHNICIAN Narrative MARLENEE PFT - 07/09/2020 10:52 AM WASTE HANDLING TECHNICIAN Verified by Praful Huff on 2019. Patient Reported LAB - BLOOD ORDERABLES Performing Organization Address City/State/ZIP Code Phon e Number BREEZE PFT LABDE SCAN documented in this encounter Visit Diagnoses Not on filedocumented in this encounter Care Teams Line Out Worker Relationship Specialty Start Date End Date Momo Forbes PCP - General Family Practice 01/02/14 [facility] [address] [place] [address] Joseph Quintana, Assigned Nephrology 03/29/21 MD Provider [address] [place] [address] [address] [place], [place] [id number] documented as of this encounter
--- OUTSIDE RECORDS SUMMARY | 2022-05-28 11:16 | XMS_ITS | Encounter Summary ---
:1950 Author Organization [place] Address [facility] 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 Per Dr. Presleynotblaze from visit in 10/09/19: # Diabetes: Poorly controlled (HbA1c >9%) Last HbA1c: 13.7%. - Management as per primary care. - Recommended all blood sugars stay below 200, with fasting between 90 and 130. ?? Latrell states that he lost his blood sugar meter but he can pick one up at [facility]. He asked how often he should be [...] level. Latrell states he returns to 08/08. ER GROWER Telephone Encounter - Cristy Chen LPN - 07/08/2020 3:39 PM CST DATE: 07/08/2020 TIME OF RECEIPT FROM LAB: 3:30 PM LAB TEST: Glucose LAB VALUE: 407 RESULTS GIVEN WITH READ-BACK TO (PROVIDER): Barbie Ugalde RN TIME LAB VALUE REPORTED TO PROVIDER: 3:39 PM ER GROWER documented in this encounter Plan of Treatment Not on filedocumented as of this encounter Visit Diagnoses Not on filedocumented in this encounter Care Teams Sprinkler Tender Relationship Specialty Start Date End Date Momo Forbes PCP - General Family Practice 01/02/14 [facility] [address] [place] [address] documented as of this encounter
--- OUTSIDE RECORDS SUMMARY | 2022-05-28 11:16 | XMS_ITS | Encounter Summary ---
:1950 Author Organization [place] Address [address] [place] [address] Care Team Providers Name Role Phone Momo Forbes Primary Care Provider Joseph Quintana MD Unavailable Reason for Visit Reason Onset Date Comments Transplant 09/22/2021 Encounter Details Date Type Department Care Team Description 09/22/2021 Telephone [facility] BOGDAN Nam [address] [place] [address] [phone] Social History Tobacco Use Types Packs/Day [...] Barbie Ugalde RN - 09/22/2021 2:16 PM MACHINE ERECTOR Post discharge from [facility] 09/20/21; to rehab/TCU due to wound on stump; can't wear prosthetic until healed. UTI on Cephelaxin 500 mg TID. Katharine TCU Unit Phone [facility] [phone] Phone RN mgr Baker [phone] Discussed Prograf dose was 1.5 mg at hospital. Should be 1 mg AM/0.5 mg PM. Repeat level with BMP [facility] 09/24/21. Verbal orders taken by admissions. Barbie Crisostomo, RN, BSN Solid Organ Transplant, Post Kidney and Pancreas Transplant Hydraulic Specialist [phone] INE ERECTOR Telephone Encounter - Azael Rodriguez - 09/22/2021 12:09 PM CST Katharine under the new name [facility] TCU has questions regarding medicationsand lab. INE ERECTOR documented in this encounter Plan of Treatment Not on filedocumented as of this encounter Visit Diagnoses Not on filedocumented in this encounter Care Teams Senior Marketing Coordinator Relationship Specialty Start Date End Date Momo Forbes PCP - General Family Practice 01/02/14 [facility] [address] [place] [address] Joseph Quintana, Assigned Nephrology 03/29/21 MD Provider [address] [place] [address] [address] [place] [address] documented as of this encounter
--- OUTSIDE RECORDS SUMMARY | 2022-05-28 11:16 | XMS_ITS | Encounter Summary ---
:1950 Author Organization [place] Address [address] [place] [address]. [place] [address] Care Team Providers Name Role Phone Momo Forbes Primary Care Provider Joseph Quintana MD Unavailable Encounter Details Date Type Department Care Team Description 08/25/2021 Orders Only [facility] Jose, Kidney tr ansplanted; Transplant Clinic BOGDAN Marcano -donor kidney transp lant recipient [address] [place] [phone] Social History Tobacco Use Types Packs/Day [...] documented in this encounter Care Teams Manager Regional Sales Relationship Specialty Start Date End Date Momo Forbes PCP - General Family Practice 01/02/14 [facility] [address] [place] [address] Joseph Quintana, Assigned Nephrology 03/29/21 Provider 7 [facility] 353 [facility] [address] [place], [place] [address] documented as of this encounter
--- OUTSIDE RECORDS SUMMARY | 2022-05-28 11:16 | XMS_ITS | Encounter Summary ---
:1950 Author Organization [place] Address [facility]0 [facility] [place] [address] Care Team Providers Name Role Phone Momo Forbes Primary Care Provider Reason for Visit Reason Onset Date Comments Refill Request 05/07/2020 Mycophenplate and Pr ograf Encounter Details Date Type Department Care Team Description 05/07/2020 Refill M [facility] Mariano, Joseph Refill R equest Nephrology Clinic MD Herminio (Mycophenplate and [address] Prograf) [address] [place] [phone] Social History Tobacco Use Types Packs/Day Years [...] transplant documented in this encounter Care Teams Deputy Insurance Commissioner Relationship Specialty Start Date End Date Momo Forbes PCP - General Family Practice 01/02/14 [facility] [address] [place] [address] documented as of this encounter
--- OUTSIDE RECORDS SUMMARY | 2022-05-28 11:16 | XMS_ITS | Encounter Summary ---
:1950 Author Organization [place] Address [address] [place] [address] Care Team Providers Name Role Phone Momo Forbes Primary Care Provider Joseph Quintana MD Unavailable Reason for Visit Reason Onset Date Comments Transplant Lab 05/04/2021 Encounter Details Date Type Department Care Team Description 05/04/2021 Telephone [facility] Transplant Krys Garcia, Transplant Lab Clinic RN [address] [place] [phone] Social History Tobacco Use Types [...] maroon colored stools. he had colonoscopy with [facility] about a year ago. Appears in CareEverywhere colonoscopy was 03/20/2015. Latrell denies infectious symptoms currently but reports he had R foot surgery at [facility] this last winter for diabetic foot ulcer. Infection in bottom of foot; laid up since Sep. Pretty well healed except a little speck. Follows up with Dr. Chatterjee. Will check iron panel on next labs. Orders sent. Barbie Ugalde RN, BSN Solid Organ Transplant, Post Kidney and Pancreas Transplant Plate And Weld Inspector [phone] Telephone Encounter - Krys Garcia RN - 05/04/2021 8:09 AM CDT ISSUE: Falling hemoglobin. documented in this encounter Plan of Treatment Not on filedocumented as of this encounter Visit Diagnoses Not on filedocumented in this encounter Care Teams Supervisor Photocomposition Relationship Specialty Start Date End Date Momo Forbes PCP - General Family Practice 01/02/14 [facility] [address] [place] [address] Joseph Quintana, Assigned Nephrology 03/29/21 MD Provider 717 [facility] 353 [facility] [address] [place] [address] documented as of this encounter
--- OUTSIDE RECORDS SUMMARY | 2022-05-28 11:16 | XMS_ITS | Encounter Summary ---
:1950 Author Organization [place] Address [address] [place] [address]. [place] [address] Care Team Providers Name Role Phone Momo Forbes A Primary Care Provider Reason for Visit Reason Onset Date Comments Transplant Immunosuppression Management 08/11/2020 Encounter Details Date Type Department Care Team Description 08/11/2020 [facility] Barbie Ugalde [facility] nsplant Transplant Clinic BOGDAN Nam Immunosuppression [address] [place] [address] [place] [address] Social History Tobacco Use Types [...] Barbie Ugalde RN - 08/11/2020 4:16 PM GLOBAL TRANSPORTATION MANAGER ISSUE: Tacrolimus IR level 11.7 on 08/08/20, [...] Organ Transplant, Post Kidney and Pancreas Transplant Sheet Hanger [phone] OUTCOME: Spoke with patient, they confirm accurate trough level and current dose 2 mg BID. Patient confirmed dose change to 1.5 mg BID and to repeat labs in 1 weeks. Orders sent to preferred pharmacy for dose change and lab for repeat labs. Patient voiced understanding of plan. 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
--- OUTSIDE RECORDS SUMMARY | 2022-05-28 11:16 | XMS_ITS | Encounter Summary ---
:1950 Author Organization [place] Address [facility] [place] [address] Care Team Providers Name Role Phone Momo Forbes Primary Care Provider Reason for Visit Reason Onset Date Comments Transplant 01/07/2021 Encounter Details Date Type Department Care Team Description 01/07/2021 Telephone [facility] Barbie Ugaldelanlynda Transplant Clinic BOGDAN Nam [address] [place] [address] [phone] Social History Tobacco Use Types Packs/Day [...] CDT Patient Call: Transplant Lab/Orders Route to CLINICAL MANAGER HOME CARE Post Transplant Days: 2530 When patient is less than 60 days post-transplant, route high priority Reason for Call: Annual lab reorder fax labs to [facility] lab at [phone] Labs drawn Waiting fororders Callback needed? No documented in this encounter Plan of Treatment Not on filedocumented as of this encounter Visit Diagnoses Not on filedocumented in this encounter Care Teams Hammer Smith Relationship Specialty Start Date End Date Momo Forbes PCP - General Family Practice 01/02/14 [facility] [address] [place] [address] documented as of this encounter
--- OUTSIDE RECORDS SUMMARY | 2022-05-28 11:16 | XMS_ITS | Encounter Summary ---
:1950 Author Organization [place] Address [address] [place] [address] Care Team Providers Name Role Phone Momo Forbes Primary Care Provider Joseph Quintana MD Unavailable Encounter Details Date Type Department Care Team Description 11/16/2021 External Order [facility] Outside, Provide r Results Molecular Diagnostic s [address] [place] [address] Social History Tobacco Use Types Packs/Day Years [...] LAB - BLOOD ORDERABLES Performing Organization Address [facility] Code Phon e Number BREEZE PFT NON-INTERFACED (ONBASE SCANS) (ABNORMAL) Lipid Profile (11/16/2021 7:12 PM CDT) [facility] Method Time Signature Cholesterol 98 90 [...] Performing Organization Address City/[facility]/ZIP Code Phon e Number BREEZE PFT NON-INTERFACED (ONBASE SCANS) (ABNORMAL) CBC with Platelets & Differential (11/16/2021 4:35 PM CDT) [facility] Method Time Signature WBC Count 6.8 [...] Performing Organization Address City/[facility]/ZIP Code Phon e Number BREEZE PFT NON-INTERFACED (ONBASE SCANS) documented in this encounter Visit Diagnoses Not on filedocumented in this encounter Care Teams Sample Selector Relationship Specialty Start Date End Date Momo Forbes PCP - General Family Practice 01/02/14 [facility] [address] [place] [address] Joseph Quintana, Assigned Nephrology 03/29/21 MD Provider 717 [facility] 353 [facility] [address] [place], [place] [address] documented as of this encounter
--- OUTSIDE RECORDS SUMMARY | 2022-05-28 11:16 | XMS_ITS | Encounter Summary ---
:1950 Author Organization [place] Address [facility] [place] [address] Care Team Providers Name Role Phone Momo Forbes Primary Care Provider Joseph Quintana MD Unavailable Reason for Visit Reason Onset Date Comments Transplant 11/24/2021 Encounter Details Date Type Department Care Team Description 11/24/2021 Telephone [facility] Transplant Obdulia Peacock, package collector Clinic [address] [place] [address] [phone] Social History Tobacco Use Types Packs/Day [...] had labs drawn ~one week ago at [facility], however results have not beenfaxed to [facility]. PLAN: call lab to have results faxed OUTCOME: New labs orders sent. Most recent bmp and cbc requested from october 2021. Tac and UPC due. Left detailed message with instructions to obtain tacrolimus trough level and UPC at earliest convenience. Asked for CB to confirm understanding. Gretta Peacock package collectorIndian Nanny [phone] Telephone Encounter - Azael Rodriguez - 11/24/2021 3:32 PM CDT Patient called to touch base with the RNCC regarding some questions. documented in this encounter Plan of Treatment Not on filedocumented as of this encounter Visit Diagnoses Not on filedocumented in this encounter Care Teams Shipbuilding Draftsperson Relationship Specialty Start Date End Date Momo Forbes PCP - General Family Practice 01/02/14 [facility] [address] [place] [address] Joseph Quintana, Assigned Nephrology 03/29/21 MD Provider [address] [place] [address] [address] [place], [place] [address] documented as of this encounter
--- OUTSIDE RECORDS SUMMARY | 2022-05-28 11:16 | XMS_ITS | Encounter Summary ---
:1950 Author Organization [place] Address [address] [place] [address]. [place] [address] Care Team Providers Name Role Phone Momo Forbes Primary Care Provider Joseph Quintana MD Unavailable Reason for Visit Reason Onset Date Comments Refill Request 08/25/2021 Prograf 0.5mg Encounter Details Date Type Department Care Team Description 08/25/2021 Telephone [facility] [place], Refil l Request (Prograf Transplant Clinic 0.5mg) [address] [place] [phone] Social History Tobacco Use Types [...] Miscellaneous Notes Telephone Encounter - Meghan Mccormack [facility] - 08/25/2021 2:15 PM CST Medication/Refill approved per CPA: [facility] COLLABORATIVE AGREEMENT FOR IMMUNOSUPPRESSENT PRESCRIPTION MODIFICATION. Routing encounter to Transplant as an FYI. Thanks, Meghan Mccormack, PharmD Specialty Pharmacist/Transplant [facility] [phone] RDS MANAGEMENT ENGINEER documented in this encounter Plan of Treatment Not on filedocumented as of this encounter Visit Diagnoses Diagnosis -donor kidney transplant recipie nt Kidney replaced by transplant Kidney transplanted Kidney replaced by transplant documented in this encounter Care Teams On Site Wastewater Systems Technician Relationship Specialty Start Date End Date Momo Forbes PCP - General Family Practice 01/02/14 [facility] [address] [place] [address] Joseph Quintana, Assigned Nephrology 03/29/21 MD Provider 717 [facility] 353 [facility] [address] [place] [address] documented as of this encounter
--- OUTSIDE RECORDS SUMMARY | 2022-05-28 11:16 | XMS_ITS | Encounter Summary ---
:1950 Author Organization [place] Address [address] [place] [address]. [place] [address] Care Team Providers Name Role Phone Momo [...] filedocumented in this encounter Care Teams Labor Relations Manager Relationship Specialty Start Date End Date Momo Forbes PCP - General Family Practice 01/02/14 [facility] [address] [place] [address] documented as of this encounter
--- OUTSIDE RECORDS SUMMARY | 2022-05-28 11:16 | XMS_ITS | Encounter Summary ---
:1950 Author Organization [place] Address [facility] [place] [address] Care Team Providers Name Role Phone Momo Forbes Primary Care Provider Joseph Quintana MD Unavailable Encounter Details Date Type Department Care Team Description 02/02/2021 External Order [facility] Outside, Provider Results Transplant Clinic [address] [place] [phone] Social History Tobacco Use Types Packs/Day [...] by Cassie Florian on 02/04/2021. Performed by: [facility] [address] [place], [place] ??[address] Patient Reported LABORATORY Performing Organization Address City/State/ZIP Code Phon e Number [facility] PFT COVID-19 EXTERNAL COVID-[address] RESULTS Result Scanned into Patient Record by [place] Refer to Result Comment/Narrative for exact performing laboratory documented in this encounter Visit Diagnoses Not on filedocumented in this encounter Care Teams Ux Design Manager Relationship Specialty Start Date End Date Momo Forbes PCP - General Family Practice 01/02/14 [facility] [address] [place] [address] Joseph Quintana, Assigned Nephrology 03/29/21 MD Provider 717 [facility] 353 [facility] [address] [place] [address] documented as of this encounter
--- OUTSIDE RECORDS SUMMARY | 2022-05-28 11:16 | XMS_ITS | Encounter Summary ---
:1950 Author Organization [place] Address [facility] [place] [address] Care Team Providers Name Role Phone Momo Forbes Primary Care Provider Joseph Quintana MD Unavailable Encounter Details Date Type Department Care Team Description 07/08/2020 External Order [facility] Outside, Provider Results Transplant Clinic [address] [place] [phone] Social History Tobacco Use Types Packs/Day [...] 9:23 AM Results f or this RESULTS FOOD COOKING MACHINE OPERATOR procedure are i n the results section. documented in this encounter Results External Lab Results (07/08/2020 9:23 AM FOOD COOKING MACHINE OPERATOR) Analysis Performed At Patho logist Time Signature Scan Lab View Image LABDE SCAN Results (External) Comment: HLA Antibody Screen, Class I an d Class II Specimen (Source) Anatomical Collection Method Collection Time Re ceived Time Location / / Volume Laterality 07/08/2020 9:23 AM FOOD COOKING MACHINE OPERATOR Narrative [facility] - 07/16/2020 2:42 PM FOOD COOKING MACHINE OPERATOR Verified by Ruperto Pepper on 07/15/20 20. Patient Reported LABORATORY Performing Organization Address City/State/ZIP Code Phon e Number [facility] LABDE SCAN documented in this encounter Visit Diagnoses Not on filedocumented in this encounter Care Teams Electrical Experimental Mechanic Relationship Specialty Start Date End Date Momo Forbes PCP - General Family Practice 01/02/14 [facility] [address] [place] [address] Joseph Quintana, Assigned Nephrology 03/29/21 MD Provider [address] [place] [address] [address] [place], [place] [id number] documented as of this encounter
--- OUTSIDE RECORDS SUMMARY | 2022-05-28 11:16 | XMS_ITS | Encounter Summary ---
:1950 Author Organization [place] Address [facility]. [address] Care Team Providers Name Role Phone Momo Forbes A Primary Care Provider Reason for Visit Reason Onset Date Comments Transplant Immunosuppression Management 09/08/2020 Encounter Details Date Type Department Care Team Description 09/08/2020 Telephone [facility] Tram, Transplant Transplant Clinic Barbie Nam, Immunosuppression [address] [place] [address] RN Management [phone] Social History Tobacco Use Types Packs/Day [...] Barbie Ugalde RN - 09/09/2020 3:06 PM CHIEF SERVICE OBSERVER Second call placed to patient and voicemail message left. F SERVICE OBSERVER Telephone Encounter - Barbie Ugalde RN - 09/08/2020 10:31 AM CHIEF SERVICE OBSERVER Images from the original note were not included. Message Received: 3 days ago Message Contents Beny Staton, [facility] Barbie Ugalde, BOGDAN ?? Latrell has not filled immunos since 07/21. ??His tacro dose changed and he has not filled the 0.5mg in over a year. ??He has not returned our calls. ?? Beny Staton [facility] Specialty Pharmacist [phone] OUTCOME: Tacrolimus dose was decreased from 2mg [...] he is currently taking and need labs. F SERVICE OBSERVER documented in this encounter Plan of Treatment Not on filedocumented as of this encounter Visit Diagnoses Not on filedocumented in this encounter Care Teams Environmental Research Scientist Relationship Specialty Start Date End Date Momo Forbes PCP - General Family Practice 01/02/14 [place] [id number] documented as of this encounter
--- OUTSIDE RECORDS SUMMARY | 2022-05-28 11:16 | XMS_ITS | Encounter Summary ---
:1950 Author Organization [place] Address [facility] [place] [address] Care Team Providers Name Role Phone Momo Forbes A Primary Care Provider Reason for Visit Reason Onset Date Comments Transplant Lab 05/28/2020 Encounter Details Date Type Department Care Team Description 05/28/2020 Telephone [facility] Barbie Ugalde Tra nsplant Lab Transplant Clinic BOGDAN Nam [address] [place] [address] [phone] Social History Tobacco Use Types Packs/Day [...] Sent: 05/28/2020 ??11:53 AM CDT To: Satish Gmóez MD Increased proteinuria reported in mg/dL on [...] mg/dL on 05/26/20 at 1025 collected at [facility] [phone] (Phone) CBC appears as expected Missing BMP and Tacrolimus levels PLAN: Call to obtain missing results if available. Assess causes of proteinuria. Result routed to Dr. Gómez for comment: Message Received: Today Message Contents Satish Gómez MD [place], Christin Rebecca, BOGDAN ?? Yes and obtain DSA as well as Hb A1c please. Previous Messages ----- Message ----- From: Barbie Ugadle RN Sent: 05/28/2020 ??11:53 AM CDT To: [...] on filedocumented in this encounter Care Teams Vat Cleaner Relationship Specialty Start Date End Date Momo Forbes PCP - General Family Practice 01/02/14 [facility] [address] [place] [address] documented as of this encounter
--- OUTSIDE RECORDS SUMMARY | 2022-05-28 11:16 | XMS_ITS | Encounter Summary ---
:1950 Author Organization [place] Address [address] [facility] [place] [address] Care Team Providers Name Role Phone Forbes, Ton Primary Care Provider Reason for Visit Reason Comments RECHECK Follow Up [place] Encounter Details Date Type Department Care Team Description 03/05/2021 Virtual Visit [facility] Joseph Quintana HTN, ki dney transplant related (Primary Dx); Nephrology Clinic MD Herminio Kidney replaced by transplant; [address] Aftercare following organ tr ansplant; [address] [place] [address] SE [place]JAN [address] [facility] Immunosu ppression (H); [place] 1932 Vitamin D deficiency; [place], [place] [phone] Social History Tobacco Use Types Packs/Day Years [...] would you like to be contacted at? [phone] How would you like to obtain your [...] and ended up being discharged to a correction. He is doing better and now back [...] unspecified documented in this encounter Care Teams Benefits Sales Consultant Relationship Specialty Start Date End Date Momo Forbes PCP - General Family Practice 01/02/14 [facility] [address] [place] [address] documented as of this encounter
--- OUTSIDE RECORDS SUMMARY | 2022-05-28 11:16 | XMS_ITS | Encounter Summary ---
:1950 Author Organization [place] Address [address] [place] [address]. [place] [address] Care Team Providers Name Role Phone Momo Forbes Primary Care Provider Joseph Quintana MD Unavailable Reason for Visit Reason Onset Date Comments Refill Request 08/25/2021 Encounter Details Date Type Department Care Team Description 08/25/2021 Refill [facility] Transplant Debbie Calderon LPN Refill Request Clinic [address] [place] [address] [phone] Social History Tobacco Use Types Packs/Day [...] transplant documented in this encounter Care Teams Energy Projects Lead Relationship Specialty Start Date End Date Momo Forbes PCP - General Family Practice 01/02/14 [facility] [address] [place] [address] Joseph Quintana, Assigned Nephrology 8/8/21 MD Provider 7 [facility] 353 [facility] [address] [place], [place] [address] documented as of this encounter
--- OUTSIDE RECORDS SUMMARY | 2022-05-28 11:16 | XMS_ITS | Encounter Summary ---
:1950 Author Organization [place] Address [facility] [place] [address] Care Team Providers Name Role Phone Momo Forbes Primary Care Provider Joseph Quintana MD Unavailable Encounter Details Date Type Department Care Team Description 04/30/2021 External Order [facility] Outside, Provide r Results Molecular Diagnostic s [address] [place] [address] Social History Tobacco Use Types Packs/Day Years [...] Platelets & Differential (04/30/2021 11:20 AM CDT) [facility] gist Method Time Signature WBC Count [...] filedocumented in this encounter Care Teams Director Work Relationship Specialty Start Date End Date Momo Forbes PCP - General Family Practice 01/02/14 [facility] [address] [place], [place] [id number] Joseph Quintana, Assigned Nephrology 03/29/21 MD Provider [address] [facility] 353 [facility] [address] [place] [address] documented as of this encounter
--- OUTSIDE RECORDS SUMMARY | 2022-05-28 11:16 | XMS_ITS | Encounter Summary ---
:1950 Author Organization [place] Address [facility] [place] [address] Care Team Providers Name Role Phone ForbesMomo Primary Care Provider Reason for Visit Reason Onset Date Comments Transplant 10/23/2020 Encounter Details Date Type Department Care Team Description 10/23/2020 Telephone [facility] BOGDAN Nam [address] [place] [address] [phone] Social History Tobacco Use Types Packs/Day [...] Barbie Ugalde RN - 10/23/2020 1:10 PM HOME VISITS NURSE Latrell reports his labs were done yesterday morning at [facility]. Last night ended upat ER at [facility]. Hospital printed out copy of labs and he is worried about creatinine. Latrell states he had R foot infection that needed to be cleaned out; Had surgery last day of August onfoot at [place]. Was hospitalized 10 days before going to [...] call back to schedule. Call placed to [facility] lab to fax results. Per Lab need to speak with information management department to release records or go thru [facility] to have orders faxed. Call then [...] and repeating post-transplant labs in 1-2 weeks. VISITS NURSE Telephone Encounter - Tasia Mack - 10/23/2020 10:03 AM CST Patient Call: Transplant Lab/Orders Route to [facility] Post Transplant Days: 2455 When patient is less than 60 days post-transplant, route high priority Reason for Call: Discuss lab results; which results? creatine level Callback needed? Yes Return Call Needed Same as documented in contacts section When to return call?: Greater than one day: Route standard priority VISITS NURSE documented in this encounter Plan of Treatment Not on filedocumented as of this encounter Visit Diagnoses Not on filedocumented in this encounter Care Teams Art Director Relationship Specialty Start Date End Date Momo Forbes PCP - General Family Practice 01/02/14 [facility] [address] [place] [address] documented as of this encounter
--- OUTSIDE RECORDS SUMMARY | 2022-05-28 11:16 | XMS_ITS | Encounter Summary ---
:1950 Author Organization [place] Address [facility] [address] Care Team Providers Name Role Phone Momo Forbes Primary Care Provider Joseph Quintana MD Unavailable Encounter Details Date Type Department Care Team Description 05/26/2020 External Order [facility] Outside, Provider Results Transplant Clinic [address] [place] [phone] Social History Tobacco Use Types Packs/Day [...] on filedocumented in this encounter Care Teams Cattle Sticker Relationship Specialty Start Date End Date Momo Forbes PCP - General Family Practice 01/02/14 [facility] [address] [place] [address] Joseph Quintana, Assigned Nephrology 03/29/21 MD Provider 7 [facility] 353 [facility] [address] [place] [address] documented as of this encounter
--- OUTSIDE RECORDS SUMMARY | 2022-05-28 11:16 | XMS_ITS | Encounter Summary ---
:1950 Author Organization [place] Address [facility] [place] [address] Care Team Providers Name Role Phone Momo Forbes A Primary Care Provider Reason for Visit Reason Onset Date Comments Transplant 02/03/2021 spoke w pt and donna vallejoed annual neph appt on 03/05/21 Encounter Details Date Type Department Care Team Description 02/03/2021 Telephone [facility] Barbie Ugaldelanlynda (spoke w pt Transplant Clinic BOGDAN Nam and confirmed annual [facility] neph appt on 03/05/21) [place] [address] Social History Tobacco Use [...] on filedocumented in this encounter Care Teams Pole Truck Driver Relationship Specialty Start Date End Date Momo Forbes PCP - General Family Practice 01/02/14 [facility] [address] [place] [address] documented as of this encounter
--- OUTSIDE RECORDS SUMMARY | 2022-05-28 11:17 | XMS_ITS | Encounter Summary ---
:1950 Author Organization [place] Address [facility]0 [facility] [place] [address] Care Team Providers Name Role Phone ForbesMomo Primary Care Provider Reason for Visit Reason Comments Clinic Care Coordination - Follow-up Encounter Details Date Type Department Care Team Description 11/16/2019 Care Coordination [facility] Sejal Rodriguez Care Nephrology Clinic BOGDAN Llanos Coordination - [place] [phone] Follow-up [address] [place] [address] (Work) [place] [phone] Social History Tobacco Use Types [...] filedocumented in this encounter Care Teams Mechanical Supervisor Relationship Specialty Start Date End Date Momo Forbes PCP - General Family Practice 01/02/14 [facility] [address] [place] [address] documented as of this encounter
--- OUTSIDE RECORDS SUMMARY | 2022-05-28 11:17 | XMS_ITS | Encounter Summary ---
:1950 Author Organization [place] Address [facility] [place] [address] Care Team Providers Name Role Phone Momo Forbes A Primary Care Provider Reason for Visit Reason Onset Date Comments Transplant Lab 01/29/2020 overdue labs Encounter Details Date Type Department Care Team Description 01/29/2020 Telephone [facility] Barbie Ugalde Tra nsplant Lab Transplant Clinic BOGDAN Nam (overdue labs) [address] [place] [phone] Social History Tobacco Use Types Packs/Day [...] a kit for blood work sent to [facility] as requested. Explained kits are no longer being used for drug levels but new orders could be sent to lab if needed. [facility] [phone] (Phone) [facility] has annual order on file sent September 2019 and can fax to their new [facility] location that opened 2 weeks ago. Patient seen provider in [facility] who meryl Hemoglobin A1C and BMP butnot [...] on filedocumented in this encounter Care Teams Hearing Aid Fitter Relationship Specialty Start Date End Date Momo Forbes PCP - General Family Practice 01/02/14 [facility] [address] [place] [address] documented as of this encounter
--- OUTSIDE RECORDS SUMMARY | 2022-05-28 11:17 | XMS_ITS | Encounter Summary ---
:1950 Author Organization [place] Address [address] [place] [address]. [place] [address] Care Team Providers Name Role Phone Momo Forbes Primary Care Provider Reason for Visit Reason Onset Date Comments Refill Request 02/04/2020 prograf, mycophenola te Encounter Details Date Type Department Care Team Description 02/04/2020 Refill [facility], Joseph Refill R equest Transplant Clinic MD Herminio (prograf, [address] [facility] [address] [facility] mycophenolate) [facility] [address] [facility] [address] [phone] [place] [address] (Wo rk) Social History Tobacco [...] transplant documented in this encounter Care Teams Care Connector Relationship Specialty Start Date End Date Moom Forbes PCP - General Family Practice 01/02/14 [facility] [address] [place] [address] documented as of this encounter
--- OUTSIDE RECORDS SUMMARY | 2022-05-28 11:18 | XMS_ITS | Encounter Summary ---
:1950 Author Organization [place] Address [address] [place] [address]. [place] [address] Care Team Providers Name Role Phone Momo [...] filedocumented in this encounter Care Teams Line Painting Machine Operator Relationship Specialty Start Date End Date Momo Forbes PCP - General Family Practice 01/02/14 [facility] [address] [place] [address] documented as of this encounter
--- OUTSIDE RECORDS SUMMARY | 2022-05-28 11:18 | XMS_ITS | Encounter Summary ---
:1950 Author Organization [place] Address [address] [place] [address]. [place] [address] Care Team Providers Name Role Phone Momo Forbes Primary Care Provider Encounter Details Date Type Department Care Team Description 11/10/2017 [facility] [place] [address] [phone] Social History Tobacco Use Types Packs/Day Years [...] disease documented in this encounter Care Teams Music Professionals Relationship Specialty Start Date End Date Momo Forbes PCP - General Family Practice 01/02/14 [facility] [address] [place] [address] documented as of this encounter
--- OUTSIDE RECORDS SUMMARY | 2022-05-28 11:18 | XMS_ITS | Encounter Summary ---
:1950 Author Organization [place] Address [facility] [place] [address] Care Team Providers Name Role Phone Forbes, Ton Primary Care Provider Reason for Visit Reason Onset Date Comments Kidney Transplant 05/20/2019 Encounter Details Date Type Department Care Team Description 05/20/2019 Telephone [facility] Estefania Nguyen Transplant Transplant Clinic Amanda Fletcher RN [address] [place] [phone] Social History Tobacco Use Types Packs/Day [...] not charted as 12 hour trough. ?? Plan/POULTRY HELPER task: ?? Please confirm timing of lab draw. If this was not a 12 hour level, please repeat labs in May and ensure 12 hour trough level with lab draw. Enter lab orders if needed Telephone Encounter - Amanda Nguyen RN - 05/20/2019 5:38 PM CDT Issue: Tac 4.6 - however this is not charted as 12 hour trough. Plan/POULTRY HELPER task: Please confirm timing of lab draw. If this was not a 12 hour level, please repeat labs in May and ensure 12 hour trough level with lab draw. Enter lab orders if needed. documented in this encounter Plan of Treatment Not on filedocumented as of this encounter Visit Diagnoses Not on filedocumented in this encounter Care Teams Braided Rug Maker Relationship Specialty Start Date End Date Momo Forbes PCP - General Family Practice 01/02/14 [facility] [address] [place] [address] documented as of this encounter
--- OUTSIDE RECORDS SUMMARY | 2022-05-28 11:18 | XMS_ITS | Encounter Summary ---
:1950 Author Organization [place] Address [facility] [place] [address] Care Team Providers Name Role Phone Momo Forbes Primary Care Provider Encounter Details Date Type Department Care Team Description 10/09/2019 Orders Only [facility] Transplant Mati Recinos RN Clinic [address] [place], [place] [phone] Social History Tobacco Use Types Packs/Day [...] CST Orders updated. Faxed to new lab: [facility] T [phone] F [phone] IAL MACHINE STITCHER documented in this encounter Plan of Treatment Not on filedocumented as of this encounter Visit Diagnoses Not on filedocumented in this encounter Care Teams Cut Off Sawyer Log Relationship Specialty Start Date End Date Forbes, Ton PCP - General Family Practice 01/02/14 [facility] [address] [place] [address] documented as of this encounter
--- OUTSIDE RECORDS SUMMARY | 2022-05-28 11:18 | XMS_ITS | Encounter Summary ---
:1950 Author Organization [place] Address [address] [place] [address]. [place] [address] Care Team Providers Name Role Phone Momo Forbes Primary Care Provider Encounter Details Date Type Department Care Team Description 09/26/2019 Medical Correspondence [facility] Scan, BLOOD GLUCOSE LOG Health Info Mgmt Non-Provider Srvcs [address] [place] [phone] Social History Tobacco Use Types Packs/Day [...] on filedocumented in this encounter Care Teams Log Truck Driver Relationship Specialty Start Date End Date Momo Forbes PCP - General Family Practice 01/02/14 [facility] [address] [place] [address] documented as of this encounter
--- OUTSIDE RECORDS SUMMARY | 2022-05-28 11:18 | XMS_ITS | Encounter Summary ---
:1950 Author Organization [place] Address [address] [place] [address]. [place] [address] Care Team Providers Name Role Phone Momo Forbes Primary Care Provider Reason for Visit Reason Onset Date Comments Refill Request 10/11/2017 Encounter Details Date Type Department Care Team Description 10/11/[address] [facility] Transplant Debbie Calderon LPN Refill Request Clinic [address] [place] [address] [phone] Social History Tobacco Use Types Packs/Day [...] documented in this encounter Care Teams Steel Spar Operator Relationship Specialty Start Date End Date Momo Forbes PCP - General Family Practice 01/02/14 [facility] [address] [place] [address] documented as of this encounter
--- OUTSIDE RECORDS SUMMARY | 2022-05-28 11:18 | XMS_ITS | Encounter Summary ---
:1950 Author Organization [place] Address [facility] [place] [address] Care Team Providers Name Role Phone ForbesMomo santiago A Primary Care Provider Encounter Details Date Type Department Care Team Description 08/18/2018 Documentation Only [facility] Josseline Recinos, Transplant Clinic RN [address] [place] [address] Social History Tobacco Use Types [...] updated: 08/17/18 Lab orders faxed to: [facility] [phone] (Phone) Lab orders up to date in [facility]. SWAMPER documented in this encounter Plan of Treatment Not on filedocumented as of this encounter Visit Diagnoses Not on filedocumented in this encounter Care Teams Formulation Scientist Relationship Specialty Start Date End Date Momo Forbes PCP - General Family Practice 01/02/14 [facility] [address] [place] [address] documented as of this encounter
--- OUTSIDE RECORDS SUMMARY | 2022-05-28 11:18 | XMS_ITS | Encounter Summary ---
:1950 Author Organization [place] Address [address] [place] [address] Care Team Providers Name Role Phone Forbes, Ton Primary Care Provider Reason for Visit Reason Comments RECHECK Post kid tx f/u Encounter Details Date Type Department Care Team Description 10/09[facility]2019 [facility] [address] [facility] [address] [place] [address] Kidney transplanted (Primary Dx); Nephrology Clinic , Kidney/Pancreas Recipient Need for influenza vaccination; [place] HTN, kidney transplant relat ed; [facility] Immunosupp ression (H); SE Skin cancer screening; [place], [place] [phone] Social History [...] Comments Blood Pressure 169/76 10/09/2019 2:35 PM CASINO RUNNER Pulse 67 10/09/2019 2:35 PM CASINO RUNNER Temperature - - Respiratory Rate - - Oxygen Saturation 95% 10/09/2019 2:35 PM CASINO RUNNER Inhaled Oxygen Concentration - - Weight 132.5 kg (292 lb 1.6 oz) 10/09/2019 2:35 PM CASINO RUNNER Height - - Body Mass Index 39.62 10/10/2017 2:25 PM CASINO RUNNER documented in this encounter Progress Notes Shiva [...] being entered into the official medical record. NO RUNNER documented in this encounter Nursing Notes Josseline Recinos RN - 10/09/2019 2:45 PM CST Diego Sosa Siricyndie was seen today in clinic by this web content writer. Medications, lab orders, lab frequency,and necessary follow up discussed with patient. Patient was provided with a copy of the current lab letter. Patient voiced understanding and agreement of education and plan. Josseline Recinos RN NO RUNNER Jeanette Finley CMA - 10/09/2019 2:45 PM CST Chief Complaint Patient presents with ??? RECHECK Post kid tx f/u Blood pressure (!) 169/76, pulse 67, weight 132.5 kg (292 lb 1.6 oz), SpO2 95 %. Jeanette Finley CMA NO RUNNER documented in this encounter Plan of [...] deficiency documented in this encounter Care Teams Grants Administrator Relationship Specialty Start Date End Date Momo Forbes PCP - General Family Practice 01/02/14 [facility] [address] [place] [address] documented as of this encounter
--- OUTSIDE RECORDS SUMMARY | 2022-05-28 11:18 | XMS_ITS | Encounter Summary ---
:1950 Author Organization [place] Address [address] [place] [address]. [place] [address] Care Team Providers Name Role Phone Momo Forbes Primary Care Provider Reason for Visit Reason Onset Date Comments Erroneous encounter-disregard 05/17/2018 Encounter Details Date Type Department Care Team Description 05/17/2018 Telephone [facility] Etcheverry, Erroneous Transplant Clinic BOGDAN Lopes encounter-disregard [address] [place] [phone] Social History Tobacco Use Types Packs/Day [...] on filedocumented in this encounter Care Teams Foundry Finisher Relationship Specialty Start Date End Date Momo Forbes PCP - General Family Practice 01/02/14 [facility] [address] [place] [address] documented as of this encounter
--- OUTSIDE RECORDS SUMMARY | 2022-05-28 11:18 | XMS_ITS | Encounter Summary ---
:1950 Author Organization [place] Address [facility] [place] [address] Care Team Providers Name Role Phone Momo Forbes A Primary Care Provider Reason for Visit Reason Onset Date Comments Kidney Transplant 07/12/2019 Encounter Details Date Type Department Care Team Description 07/12/2019 Telephone [facility] Estefania Nguyen Transplant Transplant Clinic Amanda Fletcher RN [address] [place] [address] Social History Tobacco Use Types [...] left with instruction listed below. Order placed ATOR REPAIRER APPRENTICE Telephone Encounter - Amanda Nguyen RN - 07/12/2019 12:23 PM ELEVATOR REPAIRER APPRENTICE Clinic appt 07/17 at 4:45 Plan: Called patient to remind him of appt date/time. Asked that he complete labs prior to appt. EVENTS MANAGER task: Please send one time lab order to complete all tx labs within the next week. ATOR REPAIRER APPRENTICE documented in this encounter Plan of Treatment Not on filedocumented as of this encounter Visit Diagnoses Not on filedocumented in this encounter Care Teams Prospect Manager Relationship Specialty Start Date End Date Momo Forbes PCP - General Family Practice 01/02/14 [facility] [address] [place] [address] documented as of this encounter
--- OUTSIDE RECORDS SUMMARY | 2022-05-28 11:18 | XMS_ITS | Encounter Summary ---
:1950 Author Organization [place] Address [address] [place] [address]. [place] [address] Care Team Providers Name Role Phone Momo Forbes Primary Care Provider Reason for Visit Reason Onset Date Comments Refill Request 02/28/2019 Encounter Details Date Type Department Care Team Description 02/28/2019 Refill [facility] Shiva Presley MD Refill Request Nephrology [facility] [place] [phone] Social History Tobacco Use Types Packs/Day Years [...] disease documented in this encounter Care Teams Sales And Merchandising Representative Relationship Specialty Start Date End Date Momo Forbes PCP - General Family Practice 01/02/14 [facility] [address] [place], [place] [id number] documented as of this encounter
--- OUTSIDE RECORDS SUMMARY | 2022-05-28 11:18 | XMS_ITS | Encounter Summary ---
:1950 Author Organization [place] Address [address] [place] [address]. [place] [address] Care Team Providers Name Role Phone Momo Forbes Primary Care Provider Encounter Details Date Type Department Care Team Description 09/25/2019 Medical Correspondence [facility] Scan, PATIENT BLOOD Health Info Mgmt Non-Provider GLUCOSE SIVAKUMAR ALLAN Srvcs [address] [place] [phone] Social History Tobacco Use Types Packs/Day [...] filedocumented in this encounter Care Teams Supervisor Telephone Answering Service Relationship Specialty Start Date End Date Momo Forbes PCP - General Family Practice 01/02/14 [facility] [address] [place] [address] documented as of this encounter
--- OUTSIDE RECORDS SUMMARY | 2022-05-28 11:18 | XMS_ITS | Encounter Summary ---
:1950 Author Organization [place] Address [address] [place] [address]. [place] [address] Care Team Providers Name Role Phone Momo [...] filedocumented in this encounter Care Teams Hand Bulldozer Relationship Specialty Start Date End Date Momo Forbes PCP - General Family Practice 01/02/14 [facility] [address] [place] [address] documented as of this encounter
--- OUTSIDE RECORDS SUMMARY | 2022-05-28 11:18 | XMS_ITS | Encounter Summary ---
:1950 Author Organization [place] Address [address] [facility] [place] [address] Care Team Providers Name Role Phone Momo Forbes A Primary Care Provider Reason for Visit Reason Onset Date Comments Refill Request 10/25/2018 Encounter Details Date Type Department Care Team Description 10/25/2018 Refill [facility] Joseph Quintana MD Refill Request Transplant Clinic [address] [place] [address] [phone] [place] [address] (Wo rk) Social History Tobacco [...] Marianne Urias RN - 10/26/2018 9:04 AM MANAGER BACKGROUND ISSUE: Refill request for MMF 03/2019 appt [...] to call if further questions or concerns. GER BACKGROUND documented in this encounter Plan of Treatment Not on filedocumented as of this encounter Visit Diagnoses Diagnosis Kidney transplanted Kidney replaced by transplant documented in this encounter Care Teams Polygraph Operator Relationship Specialty Start Date End Date Momo Forbes PCP - General Family Practice 01/02/14 [facility] [address] [place] [address] documented as of this encounter
--- OUTSIDE RECORDS SUMMARY | 2022-05-28 11:18 | XMS_ITS | Encounter Summary ---
:1950 Author Organization [place] Address [address] [facility] [place] [address] Care Team Providers Name Role Phone Forbes, Momo He Primary Care Provider Reason for Visit Reason Onset Date Comments Transplant 10/18/2018 post transplant lucía sampson Encounter Details Date Type Department Care Team Description 10/18/2018 Telephone [facility] Nazia Jacobson Transplant (post Transplant Clinic BOGDAN Hickssilk top hat body maker scheduling) [address] [place] [phone] Social History Tobacco Use Types Packs/Day [...] another detailed message with weight managements number. FIC [address] MAGISTRATE Telephone Encounter - Maribel Plunkett - 10/18/2018 9:32 AM CST I attempted to contact pt to give him the number for weight management, as they want to talk directly to the patient when scheduling initial appointment, and reached his VM. I LVM asking him to return my call. FIC COURT MAGISTRATE documented in this encounter Plan of Treatment Not on filedocumented as of this encounter Visit Diagnoses Not on filedocumented in this encounter Care Teams Partnership Development Manager Relationship Specialty Start Date End Date Momo Forbes PCP - General Family Practice 01/02/14 [facility] [address] [place] [address] documented as of this encounter
--- OUTSIDE RECORDS SUMMARY | 2022-05-28 11:18 | XMS_ITS | Encounter Summary ---
:1950 Author Organization [place] Address [address] [facility] [place] [address] Care Team Providers Name Role Phone Momo Forbes A Primary Care Provider Reason for Visit Reason Onset Date Comments Refill Request 12/19/2017 Encounter Details Date Type Department Care Team Description 12/19/2017 Refill [facility] Joseph Quintana MD Refill Request Transplant Clinic [address] [place] [address] [phone] [place] [address] (Wo rk) Social History Tobacco [...] Fill Date: 11/14/17 Quantity: 60 Janelle Flowers [facility] [phone] documented in this encounter Plan of Treatment Not on filedocumented as of this encounter Visit Diagnoses Diagnosis Kidney transplanted Kidney replaced by transplant documented in this encounter Care Teams Nurse Unit Manager Relationship Specialty Start Date End Date Momo Forbes PCP - General Family Practice 01/02/14 [facility] [address] [place] [address] documented as of this encounter
--- OUTSIDE RECORDS SUMMARY | 2022-05-28 11:18 | XMS_ITS | Encounter Summary ---
:1950 Author Organization [place] Address [facility] [place] [address] Care Team Providers Name Role Phone Forbes, Ton Primary Care Provider Reason for Visit Reason Onset Date Comments Transplant Lab 05/16/2019 Encounter Details Date Type Department Care Team Description 05/16/2019 Telephone [facility] Sudhir Fields Trans plant Lab Transplant Clinic Amanda Fletcher RN [address] [place] [phone] Social History Tobacco Use Types Packs/Day [...] CDT Provider Call: Transplant Lab/Orders Route to GYM TEACHER Post Transplant Days: 1929 When patient is less than 60 days post-transplant, route high priority Reason for Call: updated lab order faxed Liver patients reporting abnormal lab results: Route to RN and Page Document lab facility information when provider is calling about annual lab orders. Delete facility wildcards when not needed. Facility Name: [facility] Location: [place], [place] Outside Facility Callback needed? If needed documented in this encounter Plan of Treatment Not on filedocumented as of this encounter Visit Diagnoses Diagnosis Kidney replaced by transplant - Primary Aftercare following organ transplant Encounter for long-term current use of m edication documented in this encounter Care Teams Assistant Manager Relationship Specialty Start Date End Date Momo Forbes PCP - General Family Practice 01/02/14 [facility] [address] [place] [address] documented as of this encounter
--- OUTSIDE RECORDS SUMMARY | 2022-05-28 11:18 | XMS_ITS | Encounter Summary ---
:1950 Author Organization [place] Address [address] [place] [address] Care Team Providers Name Role Phone Forbes, Ton Primary Care Provider Reason for Visit Reason Onset Date Comments Transplant 11/07/2017 Encounter Details Date Type Department Care Team Description 11/07/2017 Telephone [facility] Transplant Nazia Jacobson, Transplant Clinic RN [address] [place] [phone] Social History Tobacco Use Types Packs/Day [...] range, repeat tac level in 1 week. RETAIL ADVERTISING ACCOUNT EXECUTIVE TASK: Call patient with instructions per plan. Enter lab orders if needed. documented in this encounter Plan of Treatment Not on filedocumented as of this encounter Visit Diagnoses Not on filedocumented in this encounter Care Teams Mortgage Specialist Relationship Specialty Start Date End Date Momo Forbes PCP - General Family Practice 01/02/[address] [address] documented as of this encounter
--- OUTSIDE RECORDS SUMMARY | 2022-05-28 11:18 | XMS_ITS | Encounter Summary ---
:1950 Author Organization [place] Address [facility] [place] [address] Care Team Providers Name Role Phone Momo Forbes Primary Care Provider Reason for Visit Reason Onset Date Comments Transplant Pharmacy Medication Review 01/10/2019 Encounter Details Date Type Department Care Team Description 01/10/2019 Telephone [facility] Meghan Mccormack, [facility] Transplant Pharmacy [address] [facility] [place] [address] PHARMACY [phone] [address], [place] [address] (Wo rk) Social History Tobacco Use Types [...] on filedocumented in this encounter Care Teams Claims Collector Relationship Specialty Start Date End Date Momo Forbes PCP - General Family Practice 01/02/14 [facility] [address] [place] [address] documented as of this encounter
--- OUTSIDE RECORDS SUMMARY | 2022-05-28 11:18 | XMS_ITS | Encounter Summary ---
:1950 Author Organization [place] Address [address] [place] [address]. [place] [address] Care Team Providers Name Role Phone Momo [...] on filedocumented in this encounter Care Teams Hatchery Laborer Relationship Specialty Start Date End Date Momo Forbes PCP - General Family Practice 01/02/14 [facility] [address] [place] [address] documented as of this encounter
--- OUTSIDE RECORDS SUMMARY | 2022-05-28 11:18 | XMS_ITS | Encounter Summary ---
:1950 Author Organization [place] Address [address] [place] [address]. [place] [address] Care Team Providers Name Role Phone Momo Forbes Primary Care Provider Encounter Details Date Type Department Care Team Description 05/17/2018 Orders Only [facility] Alana Calderon Afterc are following Transplant asbestos abatement technician organ transplant [address] [place] [address] (Primary Dx) [place] [address] Social History Tobacco Use Types [...] rimary documented in this encounter Care Teams Joiner Relationship Specialty Start Date End Date Momo Forbes PCP - General Family Practice 01/02/14 [facility] [address] [place] [address] documented as of this encounter
--- OUTSIDE RECORDS SUMMARY | 2022-05-28 11:18 | XMS_ITS | Encounter Summary ---
:1950 Author Organization [place] Address [address] [place] [address]. [place] [address] Care Team Providers Name Role Phone Momo [...] on filedocumented in this encounter Care Teams English Professor Relationship Specialty Start Date End Date Momo Forbes PCP - General Family Practice 01/02/14 [facility] [address] [place] [address] documented as of this encounter
--- OUTSIDE RECORDS SUMMARY | 2022-05-28 11:18 | XMS_ITS | Encounter Summary ---
:1950 Author Organization [place] Address [address] [place] [address] Care Team Providers Name Role Phone ForbesMomo prakash A Primary Care Provider Reason for Visit Reason Onset Date Comments Transplant Lab 09/06/2018 Encounter Details Date Type Department Care Team Description 09/06/2018 Telephone [facility] Transplant Adonay, Transplant Lab Clinic BOGDAN Lopes [address] [place] [phone] Social History Tobacco Use Types Packs/Day [...] Marianne Urias RN - 09/12/2018 11:58 AM ABATTOIR SUPERVISOR Attempted to reach pt again regarding his labs, no answer. Left message for pt to return call. TOIR SUPERVISOR Telephone Encounter - Marianne Urias RN - 09/07/2018 1:30 PM ABATTOIR SUPERVISOR Attempted to reach pt again regarding labs, no answer. Left message for pt to return call. TOIR SUPERVISOR Telephone Encounter - Marianne Urias RN - 09/06/2018 12:59 PM ABATTOIR SUPERVISOR ISSUE: Creatinine 1.69, up from pt baseline [...] Left message for pt to return call. TOIR SUPERVISOR documented in this encounter Plan of Treatment Not on filedocumented as of this encounter Visit Diagnoses Not on filedocumented in this encounter Care Teams Champion Of Sustainable Design Relationship Specialty Start Date End Date Momo Forbes PCP - General Family Practice 01/02/14 [facility] [address] [place] [address] documented as of this encounter
--- OUTSIDE RECORDS SUMMARY | 2022-05-28 11:18 | XMS_ITS | Encounter Summary ---
:1950 Author Organization [place] Address [address] [facility] [place] [address] Care Team Providers Name Role Phone Momo Forbes Primary Care Provider Encounter Details Date Type Department Care Team Description 05/16/2019 Orders Only [facility] Loy Morales Aft ercare following organ transplant; [facility] Kidney replaced by transplant; Laboratory [address] [facility] Encounter for long-term curr ent use of medication [address] [place] [address] [phone] (Wo rk) Social History Tobacco Use Types [...] (ABNORMAL) Tacrolimus level (05/16/2019 3:43 PM CDT) [facility] gist Method Time Signature Tacrolimus Last 05/1605/18/2019 [facility] Dose 1230AM 11:28 AM CDT [facility] Tacrolimus 4.6 (L) 5.0 - 05/18/2019 [facility] 15.0 ug/L 4:11 PM CDT [facility] Comment: Tacrolimus Reference Range Kidney Transplant [...] its performa nce characteristics determined by the [facility], ??Special Chemistry Laboratory. It has [...] Phon e Number [facility] [address] documented in this encounter Visit Diagnoses Diagnosis Aftercare following organ transplant Kidney replaced by transplant Encounter for long-term current use of m edication documented in this encounter Care Teams Sales Donor Recruitment Representative Relationship Specialty Start Date End Date Momo Forbes PCP - General Family Practice 01/02/14 [facility] [address] [place] [address] documented as of this encounter
--- OUTSIDE RECORDS SUMMARY | 2022-05-28 11:18 | XMS_ITS | Encounter Summary ---
:1950 Author Organization [place] Address [facility] [place] [address] Care Team Providers Name Role Phone Momo Forbes Primary Care Provider Joseph Quintana MD Unavailable Encounter Details Date Type Department Care Team Description 05/16/2019 External Order [facility] Nurse, Txc Afterca re following organ transplant; Results Transplant Clinic Kidney replaced by transplan t; [address] [place] [address] Encounter for long-term curr [place] [address] Social History Tobacco Use Types [...] 3:43 PM CDT) Analysis Performed At [facility] Time Signature Sodium 136 [...] Estimated >60 >60 LABDE SCAN (if ml/min/1.7 Palestinian) 3m2 (External) GFR Estimated 56 (L) >60 [...] 3:36 PM CDT) Analysis Performed At [facility] Time Signature Protein Random [...] edication documented in this encounter Care Teams Qa Manager Relationship Specialty Start Date End Date Momo Forbes PCP - General Family Practice 01/02/14 [facility] [address] [place] [address] Joseph Quintana, Assigned Nephrology 03/29/21 Provider [address] [facility] EMER[facility]ENC[facility]PARTMENT [address] [facility] [address] [place] [address] documented as of this encounter
--- OUTSIDE RECORDS SUMMARY | 2022-05-28 11:18 | XMS_ITS | Encounter Summary ---
:1950 Author Organization [place] Address Pending sale to [facility] [place] [address] Care Team Providers Name Role Phone Momo Forbes Primary Care Provider Joseph Quintana MD Unavailable Encounter Details Date Type Department Care Team Description 09/04/2018 External Order Results [facility] Nurse, [facility] Transplant Clinic [address] [place] [phone] Social History Tobacco Use Types [...] 2:50 PM R esults for this DIFFERENTIAL SOLUTION CONSULTANT procedure are i n the results section. BASIC METABOLIC PANEL Routine 09/04/2018 2:50 PM Results for this SOLUTION CONSULTANT procedure are i n the results section. PROTEIN RANDOM URINE Routine 09/04/2018 2:49 PM R esults for this SOLUTION CONSULTANT procedure are i n the results section. documented in this encounter Results (ABNORMAL) CBC with platelets differential (09/04/2018 2:50 PM SOLUTION CONSULTANT) [facility] gist Method Time Signature WBC [...] Laterality Blood specimen 09/04/2018 2:50 PM (specimen) SOLUTION CONSULTANT Narrative JESSICA THIBODEAUX - 09/06/2018 9:13 AM SOLUTION CONSULTANT Verified by Cassie Florian on 09/06/2018. Patient Reported LAB - BLOOD ORDERABLES Performing Organization Address City/State/ZIP Code Phon e Number [place] [facility] LABDE SCAN (ABNORMAL) Basic metabolic panel (09/04/2018 2:50 PM SOLUTION CONSULTANT) Analysis Performed At Patho logist Time Signature [...] 49 (L) >60 LABDE SCAN (if ml/min/1.7 [place]ese) 3m2 (External) GFR Estimated 41 (L) >60 LABDE SCAN (External) ml/min/1.7 3m2 Specimen (Source) Anatomical Collection Method Collection Time Re ceived Time Location / / Volume Laterality Blood specimen 09/04/2018 2:50 PM (specimen) SOLUTION CONSULTANT Narrative JESSICA PFT - 09/06/2018 9:13 AM SOLUTION CONSULTANT Verified by Cassie Florian on 09/06/2018. Patient Reported LAB - BLOOD ORDERABLES Performing Organization Address City/State/ZIP Code Phon e Number [place] [facility] LABDE SCAN (ABNORMAL) Protein random urine with Creat Ratio (09/04/2018 2:49 PM SOLUTION CONSULTANT) P athologist Signature Protein Random 72 (H) 1 - 14 LABDE SCAN Urine mg/dL (External) Creatinine 104.0 63.0 - LABDE SCAN Urine mg/dL 166.0 (External) mg/dL Protein Total 0.7 (H) <0.2 LABDE SCAN Ur per Cr (External) Specimen (Source) Anatomical Collection Method Collection Time Re ceived Time Location / / Volume Laterality Urine specimen 09/04/2018 2:49 PM (specimen) SOLUTION CONSULTANT Narrative MARLENEE PFT - 09/06/2018 9:13 AM SOLUTION CONSULTANT Verified by Cassie Florian on 09/06/2018. Patient Reported LAB - URINE ORDERABLES Performing Organization Address City/State/ZIP Code Phon e Number [place] [facility] LABDE SCAN documented in this encounter Visit Diagnoses Not on filedocumented in this encounter Care Teams Lodging Manager Relationship Specialty Start Date End Date Momo Forbes PCP - General Family Practice 01/02/14 [facility] [address] [place] [address] Joseph Quintana, Assigned Nephrology 03/29/21 MD Provider [address] [facility] 353 [facility] [address] [place] [address] documented as of this encounter
--- OUTSIDE RECORDS SUMMARY | 2022-05-28 11:18 | XMS_ITS | Encounter Summary ---
:1950 Author Organization [place] Address [address] [place] [address]. [place] [address] Care Team Providers Name Role Phone Momo Forbes Primary Care Provider Reason for Visit Reason Onset Date Comments Refill Request 01/17/2019 Encounter Details Date Type Department Care Team Description 01/17/2019 Refill [facility] Joseph Quintana MD Refill Request Transplant Clinic [address] [place] [phone] [place] [address] (Wo rk) Social History [...] transplant documented in this encounter Care Teams Wireless Telegrapher Relationship Specialty Start Date End Date Momo Forbes PCP - General Family Practice 01/02/14 [facility] [address] [place] [address] documented as of this encounter
--- OUTSIDE RECORDS SUMMARY | 2022-05-28 11:18 | XMS_ITS | Encounter Summary ---
:1950 Author Organization [place] Address [facility] [place] [address] Care Team Providers Name Role Phone Momo Forbes Primary Care Provider Reason for Visit Reason Onset Date Comments Refill Request 12/22/2018 prograf, mycophenola te (PT IS OUT OF MEDS) Encounter Details Date Type Department Care Team Description 12/22/2018 Refill [facility] Joseph Quintana R alenest (prograf, Transplant Clinic MD Herminio mycophenolate (PT IS OUT [address] [facility] [address] [facility] SE OF MEDS)) [facility] [address] [facility] 066 [address] [place], [place] [phone] [facility] [phone] (Wo rk) Social History Tobacco Use Types [...] transplant documented in this encounter Care Teams Refrigerator Crater Relationship Specialty Start Date End Date Momo Forbes PCP - General Family Practice 01/02/14 [facility] [address] [place] [address] documented as of this encounter
--- OUTSIDE RECORDS SUMMARY | 2022-05-28 11:18 | XMS_ITS | Encounter Summary ---
:1950 Author Organization [place] Address [address] [place] [address]. [place] [address] Care Team Providers Name Role Phone Momo [...] on filedocumented in this encounter Care Teams Agriscience Technology Instructor Relationship Specialty Start Date End Date Momo Forbes PCP - General Family Practice 01/02/14 [facility] [address] [place] [address] documented as of this encounter
--- OUTSIDE RECORDS SUMMARY | 2022-05-28 11:18 | XMS_ITS | Encounter Summary ---
:1950 Author Organization [place] Address [address] [place] [address] Care Team Providers Name Role Phone Momo Forbes Primary Care Provider Encounter Details Date Type Department Care Team Description 05/15/2018 Orders Only M [facility] Loy Morales MD Located within [facility] [address] [facility] [address] [place] [address] [place] [address] 5-0363 [phone] Social History Tobacco Use Types Packs/Day Years [...] (ABNORMAL) Tacrolimus level (05/15/2018 2:13 PM CDT) [facility] gist Method Time Signature Tacrolimus Not Provided 05/18/2018 [facility] Last Dose 7:24 AM CDT [facility] Tacrolimus 3.4 (L) 5.0 - 05/18/2018 [facility] Level 15.0 ug/L 7:24 AM CDT [facility] Comment: Tacrolimus Reference Range Kidney Transplant [...] BLOOD ORDERABLES Performing Organization Address [facility]/ZIP Code Phon e Number [facility] [address] Cyclosporine (05/15/2018 2:13 PM CDT) Component Value Ref Test Analysis Performed At [facility] Range Method Time Signature Cyclosporine CANCELLED BY 05/17/2018 [facility] Dose BOGDAN KOLB 1:00 PM CDT [facility] ETCHEVERRY ON [facility] 05/17/18 AT CAMPUS 1300 BY [place] Comment: CORRECTED ON 05/17 AT 1300: PRE VIOUSLY REPORTED [id number] Cyclosporine Level CANCELLED BY RN 50 - 400 05/17/2018 1:00 [facility] ug/L PM CDT [facility] ETCHEVERRY ON [facility] 05/17/18 AT 1300 BY [place] Comment: CORRECTED ON 05/17 AT 1300: PRE VIOUSLY REPORTED <25 Specimen Anatomical Collection Method Collection Time Receive d Time (Source) Location / / Volume Laterality 05/15/2018 2:13 PM 8 9:59 CDT AM CDT Orlando Richey MD LAB - BLOOD ORDERABLES Performing Organization Address City/[facility]/ZIP Code Phon e Number [address] documented in this encounter Visit Diagnoses Not on filedocumented in this encounter Care Teams Security Officers And Guards Relationship Specialty Start Date End Date Momo Forbes PCP - General Family Practice 01/02/14 [facility] [address] [place] [address] documented as of this encounter
--- OUTSIDE RECORDS SUMMARY | 2022-05-28 11:18 | XMS_ITS | Encounter Summary ---
:1950 Author Organization [place] Address [address] [facility] [place] [address] Care Team Providers Name Role Phone Momo Forbes A Primary Care Provider Reason for Visit Reason Onset Date Comments Appointment 08/24/2018 Encounter Details Date Type Department Care Team Description 08/24/2018 Telephone [facility] Nephrology Romi Garcia, RN Appointment [facility] [phone] ([facility]) [address] [place] [address] [phone] Social History Tobacco Use Types Packs/Day [...] patient to call back. Romi Rodriguez RN ORTER Telephone Encounter - Romi Rodriguez RN - 08/24/2018 1:54 PM CST Left voicemail for patient to call back (follow up from last transplant appointment). Romi Rodriguez, RN ORTER documented in this encounter Plan of Treatment Not on filedocumented as of this encounter Visit Diagnoses Not on filedocumented in this encounter Care Teams Telemarketer Relationship Specialty Start Date End Date Momo Forbes PCP - General Family Practice 01/02/[address] [address] documented as of this encounter
--- OUTSIDE RECORDS SUMMARY | 2022-05-28 11:18 | XMS_ITS | Encounter Summary ---
:1950 Author Organization [place] Address [address] [place] [address] Care Team Providers Name Role Phone Momo Forbes Primary Care Provider Encounter Details Date Type Department Care Team Description 11/03/2017 Orders Only [facility] Loy Morales Kid ney replaced by [facility] MD transplant Laboratory [address] [facility] 500 [facility] 609 [place] [id number] (Wo rk) Social History Tobacco Use Types [...] Results Tacrolimus level (11/03/2017 11:30 AM CDT) [facility] Method Time Signature Tacrolimus Not Provided 11/05/2017 [facility] Last Dose 2:20 PM CDT [facility] Tacrolimus 10.7 5.0 - 11/06/2017 [facility] 15.0 ug/L 1:00 PM CDT [facility] Comment: Tacrolimus Reference Range Kidney [...] nce characteristics determined by the [facility], ??Special Chemistry Laboratory. It has not [...] Address City/State/ZIP Code Phon e Number [phone] [place] [address] documented in this encounter Visit Diagnoses Diagnosis Kidney replaced by transplant documented in this encounter Care Teams Clam Shovel Operator Relationship Specialty Start Date End Date Momo Forbes PCP - General Family Practice 01/02/14 [facility] 1999 [place] [address] documented as of this encounter
--- OUTSIDE RECORDS SUMMARY | 2022-05-28 11:18 | XMS_ITS | Encounter Summary ---
:1950 Author Organization [place] Address [facility] [place] [address] Care Team Providers Name Role Phone Momo Forbes Primary Care Provider Joseph Quintana MD Unavailable Encounter Details Date Type Department Care Team Description 05/15/2018 External Order Results [facility] Nurse, [place] [facility] 9 [place] [address] Social History Tobacco Use Types [...] 54 (L) >60 LABDE SCAN (if ml/min/1.7 Senegalese) 3m2 (External) GFR Estimated 44 (L) >60 [...] on filedocumented in this encounter Care Teams Game Developer Relationship Specialty Start Date End Date Momo Forbes PCP - General Family Practice 01/02/14 [facility] [address] [place] [address] Joseph Quintana, Assigned Nephrology 03/29/21 Provider 7 [facility] 353 [facility] 1932 [place], [place] [id number] documented as of this encounter
--- OUTSIDE RECORDS SUMMARY | 2022-05-28 11:18 | XMS_ITS | Encounter Summary ---
:1950 Author Organization [place] Address [address] [place] [address]. [place] [address] Care Team Providers Name Role Phone Momo Forbes Primary Care Provider Reason for Visit Reason Onset Date Comments Transplant Pharmacy Medication Review 01/19/2018 Encounter Details Date Type Department Care Team Description 01/19/2018 Telephone [facility] Beny Staton, Transplant Pharmacy 500 [facility] [place] [address] [facility] [phone] PHARMACY [place], [place] 0939[address] Social History Tobacco Use Types Packs/Day Years [...] on filedocumented in this encounter Care Teams Coal Shoveler Relationship Specialty Start Date End Date Momo Forbes PCP - General Family Practice 01/02/14 [facility] 1999 [place] [address] documented as of this encounter
--- OUTSIDE RECORDS SUMMARY | 2022-05-28 11:18 | XMS_ITS | Encounter Summary ---
:1950 Author Organization [place] Address [address] [facility] [place] [address] Care Team Providers Name Role Phone Forbes, Momo He Primary Care Provider Reason for Referral Consultation - Closed Specialty Diagnoses / Procedures Referred By Contact Refer red To Contact Diagnoses Obesity Kidney transplanted Sot Other Services 7 [place] [address] Referral ID Status Reason Start Date Expiration Date Visits Requ ested Visits Authorized [id number] Closed 10/17/2018 10/17/2019 1 1 CAL STAFF CREDENTIALING COORDINATOR Reason for Visit Reason Comments Transplant Encounter Details Date Type Department Care Team Description 10/17/2018 Orders Only [facility] Marcelacaty Nazia Obesity (P rimary Dx); Transplant Clinic BOGDAN Hicks Kidney transplanted 9 [place] [address] Social History Tobacco Use Types [...] transplant documented in this encounter Care Teams Dermatopathologist Relationship Specialty Start Date End Date Momo Forbes PCP - General Family Practice 01/02/14 [facility] [address] [place] [address] documented as of this encounter
--- OUTSIDE RECORDS SUMMARY | 2022-05-28 11:18 | XMS_ITS | Encounter Summary ---
:1950 Author Organization [place] Address [address] [place] [address] Care Team Providers Name Role Phone ForbesMomo prakash A Primary Care Provider Reason for Visit Reason Comments RECHECK annual Follow up Kidney TX Encounter Details Date Type Department Care Team Description 10/17/2018 Office Visit [facility] Shiva Presley MD [facility] [address] [facility] 220 [place] [address] Type 2 diabetes mellitus with other spec ified complication, with long-term current use of insulin (H) (Primary Dx); Nephrology Clinic [facility] Kidney/Pancreas Recipient Kidney replaced by transplant; [place] Aftercare following organ tr ansplant; [address] Immunosupp ression (H); SE HTN, kidney transplant relat ed; [place], [place] Severe obesi ty in adult, BMI [...] Comments Blood Pressure 162/77 10/17/2018 1:54 PM SEXUAL ASSAULT SOCIAL WORKER Pulse 60 10/17/2018 1:54 PM SEXUAL ASSAULT SOCIAL WORKER Temperature 36.5 ??C (97.7 ??F) 10/17/2018 1:54 PM SEXUAL ASSAULT SOCIAL WORKER Respiratory Rate - - Oxygen Saturation 94% 10/17/2018 1:54 PM SEXUAL ASSAULT SOCIAL WORKER Inhaled Oxygen Concentration - - Weight 133.7 kg (294 lb 12.8 oz) 10/17/2018 1:54 PM SEXUAL ASSAULT SOCIAL WORKER Height - - Body Mass Index 39.98 10/10/2017 2:25 PM SEXUAL ASSAULT SOCIAL WORKER documented in this encounter Progress Notes Joseph [...] then 50%0. Also offered to refer to golf course mechanic. # Mineral Bone Disorder: - Secondary renal [...] PREVIOUSLY REPORTED 1999 MPACID 1.39 MPAG 80.2 AL ASSAULT SOCIAL WORKER documented in this encounter Nursing Notes Martina [...] kg (294 lb 12.8 oz). Martina Boyle AL ASSAULT SOCIAL WORKER documented in this encounter Plan of [...] >40 documented in this encounter Care Teams Golf Range Attendant Relationship Specialty Start Date End Date Momo Forbes PCP - General [facility] Practice 01/02/14 [facility] [address] [place] [address] documented as of this encounter
--- OUTSIDE RECORDS SUMMARY | 2022-05-28 11:19 | XMS_ITS | Encounter Summary ---
:1950 Author Organization [place] Address [facility] [place] [address] Care Team Providers Name Role Phone ForbesMomo prakash A Primary Care Provider Reason for Visit Reason Onset Date Comments Refill Request 09/28/2016 Encounter Details Date Type Department Care Team Description 09/28/2016 Refill [facility] Anita Joshi MD Refill Request Nephrology Clinic [address] [place] [address] [place] [address] 5-4800 [phone] Social History Tobacco Use Types Packs/Day Years [...] 1:51 PM CST Last Office Visit with Garment Finisher: March 2016. Medication refilled per Nephrology Clinic protocol. Janes Jauregui RN S TOUGHENING OPERATOR documented in this encounter Plan of Treatment Not on filedocumented as of this encounter Visit Diagnoses Diagnosis Reactive depression - Primary Dysthymic disorder documented in this encounter Care Teams Insurance Agency Owner Relationship Specialty Start Date End Date Momo Forbes PCP - General Family Practice 01/02/14 [facility] [address] [place] [address] documented as of this encounter
--- OUTSIDE RECORDS SUMMARY | 2022-05-28 11:19 | XMS_ITS | Encounter Summary ---
:1950 Author Organization [place] Address [facility] [place] [address] Care Team Providers Name Role Phone ForbesMomo prakash A Primary Care Provider Encounter Details Date Type Department Care Team Description 10/25/2016 Orders Only [facility] Thrombocytopenia (H); [address] Aftercare following organ tr ansplant; 1st Floor Kidney replaced by transplan t; [place], [place] Encounter fo r long-term current use [...] Thrombocytopenia (H) Resu lts for this PM RESIDENT CARE MANAGER procedure are i n the results section. BASIC METABOLIC Routine 10/25/2016 3:54 Aftercare following Re sults for this PANEL PM RESIDENT CARE MANAGER organ transplant procedure are in Kidney replaced by the resul ts transplant section. Encounter for long-term current use of medication CBC WITH PLATELETS Routine 10/25/2016 3:54 Aftercare following Results for this PM RESIDENT CARE MANAGER organ transplant procedure are in Kidney replaced by the [facility] ts transplant section. Encounter for long-term current use of medication PROTEIN RANDOM Routine 10/25/2016 3:52 Aftercare following Res ults for this URINE PM RESIDENT CARE MANAGER organ transplant procedure are in Kidney replaced by the [facility] ts transplant section. Encounter for long-term current use of medication CREATININE URINE Routine 10/25/2016 3:52 Thrombocytopenia (H) Results for this CALCULATION ONLY PM RESIDENT CARE MANAGER procedure a re in (LAB ONLY) the results section. documented in this encounter Results (ABNORMAL) Basic metabolic panel (10/25/2016 3:54 PM RESIDENT CARE MANAGER) [facility] Method Time Signature Sodium 142 133 - 144 [facility] mmol/L [facility] Potassium 4.2 3.4 - 5.3 [facility] mmol/L [facility] Chloride 108 94 - 109 [facility] mmol/L [facility] Carbon Dioxide 28 20 - 32 [facility] mmol/L [facility] Anion Gap 7 3 - 14 [facility] mmol/L [facility] Glucose 120 (H) 70 - 99 [facility] mg/dL [facility] Urea Nitrogen 19 7 - 30 [facility] mg/dL [facility] Creatinine 1.39 (H) 0.66 - [facility] 1.25 mg/dL [facility] GFR Estimate 51 (L) >60 [facility] mL/min/1.[address] [place] m[address] [facility] Comment: Non GFR Calc GFR Estimate If Black 62 >60 mL/min/1.7m2 [facility] Comment: GFR Calc Calcium 9.4 8.5 - 10.1 mg/dL [facility] Specimen Anatomical Collection Method Collection Time Receive d Time (Source) Location / / Volume Laterality Blood specimen 10/25/2016 3:54 PM 017 3:55 (specimen) RESIDENT CARE MANAGER PM RESIDENT CARE MANAGER Chucho Joshi MD LAB - BLOOD ORDERABLES Performing Organization Address City/State/ZIP Code Phon e Number [address] [phone] [facility] (ABNORMAL) CBC with platelets (10/25/2016 3:54 PM RESIDENT CARE MANAGER) Analysis Performed At Patho logist Time Signature WBC 5.1 4.0 - 11.0 [facility] 10e9/L [facility] RBC Count 5.50 4.4 - 5.9 [facility] 10e12/L [facility] Hemoglobin 15.5 13.3 - [facility] 17.7 g/dL [facility] Hematocrit 46.0 40.0 - [facility] 53.0 % [facility] MCV 84 78 - 100 [facility] fl [facility] MCH 28.2 26.5 - [facility] 33.0 pg [facility] MCHC 33.7 31.5 - [facility] 36.5 g/dL [facility] RDW 14.1 10.0 - [facility] 15.0 % [facility] Platelet Count 124 (L) 150 - 450 [facility] 10e9/L [facility] Specimen Anatomical Collection Method Collection Time Receive d Time (Source) Location / / Volume Laterality Blood specimen 10/25/2016 3:54 PM 017 3:55 (specimen) RESIDENT CARE MANAGER PM RESIDENT CARE MANAGER Chucho Joshi MD LAB - BLOOD ORDERABLES Performing Organization Address City/[facility] [place] [address] [facility] Folate RBC (10/25/2016 3:54 PM RESIDENT CARE MANAGER) P athologist Signature HCT Within 46.0 % [facility] Past 24h [facility] Folate RBC 663 ng/mL [facility] Comment: Reference range: >=366 (Note) Performed by [facility], [address] [place] [id number] [email or web address], Geoff Reed MD, Lab. Director Specimen Anatomical Collection Method Collection Time Receive d Time (Source) Location / / Volume Laterality Blood specimen 10/25/2016 3:54 PM 017 3:55 (specimen) RESIDENT CARE MANAGER PM RESIDENT CARE MANAGER Chucho Joshi MD LAB - BLOOD ORDERABLES Performing Organization Address City/[facility]/ZIP Code Phon e Number [address] [phone] [facility] Creatinine urine calculation only (10/25/2016 3:52 PM RESIDENT CARE MANAGER) P athologist Signature Creatinine 152 mg/dL [facility] Specimen Anatomical Collection Method Collection Time Receive d Time (Source) Location / / Volume Laterality 10/25/2016 3:52 PM 201 7 4:12 RESIDENT CARE MANAGER PM RESIDENT CARE MANAGER Chucho Joshi MD LAB - URINE ORDERABLES Performing Organization Address City/State/ZIP Code Phon e Number M [facility] [address] [place] [address] [phone] [facility] [address] [place] [phone], [place] [phone] (ABNORMAL) Protein random urine (10/25/2016 3:52 PM RESIDENT CARE MANAGER) Analysis Performed At Patho logist Time Signature Protein Random 0.48 g/L [facility] Protein Total 0.31 (H) 0 - 0.2 [place] Urine g/gr g/g Cr [facility] Specimen Anatomical Collection Method Collection Time Receive d Time (Source) Location / / Volume Laterality Urine specimen 10/25/2016 3:52 PM 017 4:12 (specimen) RESIDENT CARE MANAGER PM RESIDENT CARE MANAGER Chucho Joshi MD LAB - URINE ORDERABLES Performing Organization Address City/State/ZIP Code Phon e Number [facility] [address] [place] [phone] [facility] [address] [place] [phone], [place] [phone] documented in this encounter Visit Diagnoses Diagnosis Thrombocytopenia (H) Thrombocytopenia, unspecified Aftercare following organ transplant Kidney replaced by transplant Encounter for long-term current use of m edication documented in this encounter Care Teams Diversified Crops I Farmworker Relationship Specialty Start Date End Date Momo Forbes PCP - General Family Practice 01/02/14 [facility] [address] [place] [address] documented as of this encounter
--- OUTSIDE RECORDS SUMMARY | 2022-05-28 11:19 | XMS_ITS | Encounter Summary ---
:1950 Author Organization [place] Address [address] [place] [address]. [place] [address] Care Team Providers Name Role Phone Momo Forbes Primary Care Provider Reason for Visit Reason Onset Date Comments Refill Request 08/31/2017 mycophenolate Encounter Details Date Type Department Care Team Description 08/31/2017 Refill [facility] Mariano, Joseph Refill R equest Transplant Clinic MD Herminio (mycophenolate) [address] [place] [phone] [place] [address] (Wo rk) Social History Tobacco [...] documented in this encounter Care Teams Account Installer Relationship Specialty Start Date End Date Momo Forbes PCP - General Family Practice 01/02/14 [facility] 1999 [place], [place] [phone] documented as of this encounter
--- OUTSIDE RECORDS SUMMARY | 2022-05-28 11:19 | XMS_ITS | Encounter Summary ---
:1950 Author Organization [place] Address [address] [place] [address] Care Team Providers Name Role Phone Momo Forbes Primary Care Provider Encounter Details Date Type Department Care Team Description 07/15/2017 Orders Only [facility] Loy Morales Kid ney replaced by [facility] MD transplant Laboratory [address] [facility] 500 [facility] 609 [place] [phone] (Wo rk) Social History Tobacco Use Types [...] by Results for this MASS SPECTROMETRY AM CLINICAL LEADER transplant procedure are in the results section. documented in this encounter Results (ABNORMAL) Tacrolimus level (07/15/2017 10:48 AM CLINICAL LEADER) [facility] Method Time Signature Tacrolimus Last 0000 07/19/2017 [facility] 07/15/17 10:48 AM [facility] Tacrolimus 4.4 (L) 5.0 - 07/19/2017 [facility] Level 15.0 ug/L 2:38 PM [facility] Comment: Tacrolimus Reference Range Kidney [...] its performa nce characteristics determined by the [facility], ??Special Chemistry Laboratory. It has [...] Blood specimen 07/15/2017 10:48 7 (specimen) AM CLINICAL LEADER 10:47 AM CLINICAL LEADER Orlando Richey MD LAB - BLOOD ORDERABLES Performing Organization Address City/State/ZIP Code Phon e Number [facility] 500 [place], [place] [phone] [place] [address] 500 [place], [place] [phone] [place] [address] documented in this encounter Visit Diagnoses Diagnosis Kidney replaced by transplant documented in this encounter Care Teams Post Form Remover Relationship Specialty Start Date End Date Momo Forbes PCP - General Family Practice 01/02/14 [facility] [address] [place] [address] documented as of this encounter
--- OUTSIDE RECORDS SUMMARY | 2022-05-28 11:19 | XMS_ITS | Encounter Summary ---
:1950 Author Organization [place] Address [facility] [place] [address] Care Team Providers Name Role Phone ForbesMomo prakash A Primary Care Provider Reason for Visit Reason Comments RECHECK Kidney follow up Encounter Details Date Type Department Care Team Description 10/25/2016 Office Visit [facility] Anita Joshi MD Renal hypertension, Nephrology Clinic [address] [place] [address] 1-4 or [place] [address] unspecified chronic [address] [place], [place] [address] (Primary Dx) [address] [phone] Social History Tobacco Use Types Packs/Day Years [...] Comments Blood Pressure 168/83 10/25/2016 4:39 PM MESSENGER OFFICE Pulse 55 10/25/2016 4:39 PM MESSENGER OFFICE Temperature 36.8 ??C (98.3 ??F) 10/25/2016 4:39 PM MESSENGER OFFICE Respiratory Rate 18 10/25/2016 4:39 PM MESSENGER OFFICE Oxygen Saturation - - Inhaled Oxygen Concentration - - Weight 138.2 kg (304 lb 9.6 oz) 10/25/2016 4:39 PM MESSENGER OFFICE Height 182.9 cm (6') 10/25/2016 4:39 PM MESSENGER OFFICE Body Mass Index 41.31 10/25/2016 4:39 PM MESSENGER OFFICE documented in this encounter Progress Notes Chucho [...] (304 lb 9.6 oz). Medication Reconciliation: complete ENGER OFFICE documented in this encounter Plan of Treatment Not on filedocumented as of this encounter Visit Diagnoses Diagnosis Renal hypertension, stage 1-4 or unspeci fied chronic kidney disease - Primary documented in this encounter Care Teams Jewelsmith Relationship Specialty Start Date End Date Momo Forbes PCP - General Family Practice 01/02/14 [facility] [address] [place] [address] documented as of this encounter
--- OUTSIDE RECORDS SUMMARY | 2022-05-28 11:19 | XMS_ITS | Encounter Summary ---
:1950 Author Organization [place] Address [address] [facility] [place] [address] Care Team Providers Name Role Phone Momo Forbes A Primary Care Provider Reason for Visit Reason Onset Date Comments Refill Request 06/28/2017 mycophenolate Encounter Details Date Type Department Care Team Description 06/28/2017 Refill [facility] Mariano, Joseph Refill R equest Transplant Clinic MD Herminio (mycophenolate) [address] [place] [phone] [place] [address] (Wo rk) Social History Tobacco [...] Fill Date: 05/31/17 Quantity: 180 Janelle Flowers [facility] [phone] ITY ASSOCIATE documented in this encounter Plan of Treatment Not on filedocumented as of this encounter Visit Diagnoses Diagnosis Kidney transplanted - Primary Kidney replaced by transplant documented in this encounter Care Teams Furniture Mover Relationship Specialty Start Date End Date Momo Forbes PCP - General Family Practice 01/02/[address] [address] documented as of this encounter
--- OUTSIDE RECORDS SUMMARY | 2022-05-28 11:19 | XMS_ITS | Encounter Summary ---
:1950 Author Organization [place] Address [address] [facility] [place] [address] Care Team Providers Name Role Phone Momo Forbes Primary Care Provider Encounter Details Date Type Department Care Team Description 01/19/2017 Orders Only [facility] Loy Morales Aft ercare following organ transplant; [facility] Kidney replaced by transplant; Laboratory [address] [facility] Encounter for long-term curr ent use of medication [address] [place] [address] [phone] (Wo rk) Social History Tobacco Use Types [...] Results Tacrolimus level (01/19/2017 9:25 AM CDT) [facility] gist Method Time Signature Tacrolimus Last 0800 [facility] Dose 01/19/17 [facility] Tacrolimus 6.5 5.0 - [facility] 15.0 ug/L [facility] Comment: Tacrolimus Reference Range [...] its perform ance characteristics determined by the [facility], ??Special Chemistry Laboratory. It has [...] Address City/State/ZIP Code Phon e Number [id number] [place] [address] documented in this encounter Visit Diagnoses Diagnosis Aftercare following organ transplant Kidney replaced by transplant Encounter for long-term current use of m edication documented in this encounter Care Teams Mild Disabilities Teacher Relationship Specialty Start Date End Date Momo Forbes PCP - General Family Practice 01/02/[address] [address] documented as of this encounter
--- OUTSIDE RECORDS SUMMARY | 2022-05-28 11:19 | XMS_ITS | Encounter Summary ---
:1950 Author Organization [place] Address [address] [place] [address] Care Team Providers Name Role Phone ForbesMomo santiago A Primary Care Provider Reason for Visit Reason Onset Date Comments Transplant 09/12/2017 Encounter Details Date Type Department Care Team Description 09/12/2017 Telephone [facility] Transplant Nazia Jacobson, Transplant Clinic RN [address] [phone] Social History Tobacco Use Types Packs/Day [...] updated standing lab order and faxed to [facility] lab. RAM DIRECTOR GROUP WORK Telephone Encounter - Nazia Jacobson RN - 09/12/2017 8:36 AM PROGRAM DIRECTOR GROUP WORK ISSUE: Hyperglycemia (blood sugar 300-600s w/ last 2 blood draws) Overdue for transplant labs ACCOUNT ENGINEER TASK: Call Diego Guthrie and ask him who is managing his diabetes? Does he have an branch examiner? He needs to have better blood sugar control, elevated blood sugars can cause damage to his kidney. Remind him that he should be getting transplant labs done monthly. (3 years out from kidney transplant) Send updated lab letter. RAM DIRECTOR GROUP WORK documented in this encounter Plan of Treatment Not on filedocumented as of this encounter Visit Diagnoses Not on filedocumented in this encounter Care Teams Photoengraving Retoucher Relationship Specialty Start Date End Date Momo Forbes PCP - General Family Practice 01/02/14 [facility] [address] [place] [address] documented as of this encounter
--- OUTSIDE RECORDS SUMMARY | 2022-05-28 11:19 | XMS_ITS | Encounter Summary ---
:1950 Author Organization [place] Address [address] [place] [address]. [place] [address] Care Team Providers Name Role Phone Momo Forbes Primary Care Provider Reason for Visit Reason Onset Date Comments Transplant 05/26/2017 refill Encounter Details Date Type Department Care Team Description 05/26/[address] [facility] Anita Joshi MD Transplant (refill) Nephrology Clinic [address] [place] [id number] [place] [address] (Wo rk) [address] [phone] Social History Tobacco Use Types Packs/Day Years [...] documented in this encounter Care Teams Water Filter Cleaner Relationship Specialty Start Date End Date Momo Forbes PCP - General Family Practice 01/02/14 [facility] [address] [place] [address] documented as of this encounter
--- OUTSIDE RECORDS SUMMARY | 2022-05-28 11:19 | XMS_ITS | Encounter Summary ---
:1950 Author Organization [place] Address [facility] [place] [address] Care Team Providers Name Role Phone ForbesMomo santiago A Primary Care Provider Reason for Visit Reason Onset Date Comments Transplant 06/01/2017 [place] returning call Left on 06/05/17 Encounter Details Date Type Department Care Team Description 06/01/2017 [facility] Shiva Kahn, recreational leader ([place] Transplant Clinic [facility] returning call Left [facility] on 06/05/17) [place], [place] [address] [place], [place] [phone] Social History Tobacco Use Types Packs/Day [...] care to get a good 12-hour level. MOTOR HOTEL MANAGER TASK: Please fax lab order for tacrolimus level Telephone Encounter - Mary Whitehead - 06/06/2017 7:47 AM CDT Please call Diego. Called on Tuesday left to call him on Tuesday06/06/17. ADDENDUM: MOTOR HOTEL MANAGER TASK: Call with questions and instruction per [...] on filedocumented in this encounter Care Teams Pile Driver Relationship Specialty Start Date End Date Momo Forbes PCP - General Family Practice 01/02/14 [facility] [address] [place] [address] documented as of this encounter
--- OUTSIDE RECORDS SUMMARY | 2022-05-28 11:19 | XMS_ITS | Encounter Summary ---
:1950 Author Organization [place] Address [address] [place] [address]. [place] [address] Care Team Providers Name Role Phone Momo Forbes Primary Care Provider Encounter Details Date Type Department Care Team Description 03/23/2017 Orders Only [facility] [place] Kidne y replaced by Nephrology Clinic transplant (Primary [address] Dx) [address] [place] [address] [phone] Social History Tobacco Use Types Packs/Day [...] Primary documented in this encounter Care Teams Conductor Freight Relationship Specialty Start Date End Date Momo Forbes PCP - General Family Practice 01/02/14 [facility] [address] [place] [address] documented as of this encounter
--- OUTSIDE RECORDS SUMMARY | 2022-05-28 11:19 | XMS_ITS | Encounter Summary ---
:1950 Author Organization [place] Address [address] [place] [address] Care Team Providers Name Role Phone ForbesMomo santiago A Primary Care Provider Encounter Details Date Type Department Care Team Description 05/30/2017 Hospital Encounter [facility] [place], [facility] [address] [address] [phone] (Wo rk) Social History Tobacco Use Types [...] on filedocumented in this encounter Care Teams Wealth Management Consultant Relationship Specialty Start Date End Date Momo Forbes PCP - General Family Practice 01/02/14 [facility] [address] [place] [address] documented as of this encounter
--- OUTSIDE RECORDS SUMMARY | 2022-05-28 11:19 | XMS_ITS | Encounter Summary ---
:1950 Author Organization [place] Address [address] [place] [address]. [place] [address] Care Team Providers Name Role Phone Momo Forbes Primary Care Provider Reason for Visit Reason Onset Date Comments Transplant 08/31/2017 Encounter Details Date Type Department Care Team Description 08/31/2017 Telephone [facility] Transplant Amanda Garduno Transplant Clinic M, RN [address] [place] [phone] Social History Tobacco Use Types Packs/Day [...] on filedocumented in this encounter Care Teams Optometrist President/Practice Owner Relationship Specialty Start Date End Date Momo Forbes PCP - General Family Practice 01/02/14 [facility] [address] [place] [address] documented as of this encounter
--- OUTSIDE RECORDS SUMMARY | 2022-05-28 11:19 | XMS_ITS | Encounter Summary ---
:1950 Author Organization [place] Address [address] [place] [address]. [place] [address] Care Team Providers Name Role Phone Momo Forbes Primary Care Provider Reason for Visit Reason Onset Date Comments Transplant Pharmacy Medication Review 01/26/2017 Encounter Details Date Type Department Care Team Description 01/26/2017 Telephone [facility] Janes Rodriguez, Transplant Pharmacy [address] [facility] Medication [facility] [place] [phone] Social History Tobacco Use Types Packs/Day Years [...] filedocumented in this encounter Care Teams Indirect Fire Infantryman Relationship Specialty Start Date End Date Momo Forbes PCP - General Family Practice 01/02/14 [facility] [address] [place] [address] documented as of this encounter
--- OUTSIDE RECORDS SUMMARY | 2022-05-28 11:19 | XMS_ITS | Encounter Summary ---
:1950 Author Organization [place] Address [address] [facility] [place] [address] Care Team Providers Name Role Phone Momo Forbes Primary Care Provider Reason for Visit Reason Onset Date Comments Pre Visit Planning - Unable To Reach 10/14/2016 Encounter Details Date Type Department Care Team Description 10/14/2016 Telephone [facility] Anita Joshi MD Pre Visit Planning - Nephrology Clinic [address] [place] [address] [place] ble To Reach [address] [phone] [phone] Social History Tobacco Use Types Packs/Day Years [...] is office from Clinic [facility] at the [facility]. We are calling to remind you of your upcoming Nephrology appointment on 10/25/16 at 440pm. Please arrive about 1 hours prior to your appointment time for labs. Also, please bring an updated medication list or your labeled medication bottles with you to your appointment. If you have any questions or would like to cancel or reschedule your appointment, please call us at [phone]. You are welcome to have your labs done up to a week before your appointment at any [place] or [facility] facility. If you have your labs completed before your appointment, please still come 30 minutes early for check-in MONROE ZURITA CMA IDENT [employer] documented in this encounter Plan of Treatment Not on filedocumented as of this encounter Visit Diagnoses Not on filedocumented in this encounter Care Teams Manager Quality Improvement Relationship Specialty Start Date End Date Momo Forbes PCP - General Family Practice 01/02/14 [facility] [address] [place] [address] documented as of this encounter
--- OUTSIDE RECORDS SUMMARY | 2022-05-28 11:19 | XMS_ITS | Encounter Summary ---
:1950 Author Organization [place] Address [address] [place] [address]. [place] [address] Care Team Providers Name Role Phone Momo Forbes Primary Care Provider Reason for Visit Reason Onset Date Comments Transplant 12/02/2016 refill Encounter Details Date Type Department Care Team Description 12/02/[address] [facility] Anita Joshi MD Transplant (refill) Nephrology Clinic [address] [place] [id number] [place] [address] (Wo rk) [phone] Social History Tobacco Use Types Packs/Day Years [...] transplant documented in this encounter Care Teams Buzzle Buffer Relationship Specialty Start Date End Date Momo Forbes PCP - General Family Practice 01/02/14 [facility] [address] [place] [address] documented as of this encounter
--- OUTSIDE RECORDS SUMMARY | 2022-05-28 11:19 | XMS_ITS | Encounter Summary ---
:1950 Author Organization [place] Address [address] [facility] [place] [address] Care Team Providers Name Role Phone Momo Forbes A Primary Care Provider Reason for Visit Reason Onset Date Comments Refill Request 10/10/2017 mycophenolae Encounter Details Date Type Department Care Team Description 10/10/2017 Refill [facility] Mariano, Joseph Refill R equest Transplant Clinic MD Herminio (mycophenolae ) [address] [place] [phone] [place] [address] (Wo rk) Social History Tobacco [...] Fill Date: 09/01/17 Quantity: 180 Janelle Flowers [facility] [phone] SCHOOL COMPUTER SCIENCE TEACHER documented in this encounter Plan of Treatment Not on filedocumented as of this encounter Visit Diagnoses Diagnosis Kidney transplanted Kidney replaced by transplant documented in this encounter Care Teams Manager In Training Relationship Specialty Start Date End Date Momo Forbes PCP - General Family Practice 01/02/14 [facility] [address] [place] [address] documented as of this encounter
--- OUTSIDE RECORDS SUMMARY | 2022-05-28 11:19 | XMS_ITS | Encounter Summary ---
:1950 Author Organization [place] Address [address] [place] [address] Care Team Providers Name Role Phone Momo Forbes Primary Care Provider Encounter Details Date Type Department Care Team Description 05/31/[address] [facility] Loy Morales Kid ney replaced by [facility] MD transplant Laboratory [address] [facility] 500 [facility] [address] [place] [phone] (Wo rk) Social History Tobacco Use Types [...] (ABNORMAL) Tacrolimus level (05/30/2017 1:01 PM CDT) [facility] Method Time Signature Tacrolimus Last 05/29/17 05/31/2017 [facility] Dose 1930 1:05 PM CDT [facility] Tacrolimus 3.0 (L) 5.0 - 05/31/2017 [facility] 15.0 ug/L 7:54 PM CDT [facility] Comment: Tacrolimus [...] its performa nce characteristics determined by the [facility], ??Special Chemistry Laboratory. It [...] Code Phon e Number [facility] 500 [place], [place] [phone] [place] [address] documented in this encounter Visit Diagnoses Diagnosis Kidney replaced by transplant documented in this encounter Care Teams Marketing Operations Coordinator Relationship Specialty Start Date End Date Momo Forbes PCP - General Family Practice 01/02/14 [facility] [address] [place] [address] documented as of this encounter
--- OUTSIDE RECORDS SUMMARY | 2022-05-28 11:19 | XMS_ITS | Encounter Summary ---
:1950 Author Organization [place] Address [address] [facility] [place] [address] Care Team Providers Name Role Phone ForbesMomo prakash A Primary Care Provider Reason for Visit Reason Onset Date Comments Appointment 10/05/2017 Encounter Details Date Type Department Care Team Description 10/05/2017 Telephone [facility] Shiva Presley MD Appointment Nephrology Clinic [facility] [place] [phone] Social History Tobacco Use Types Packs/Day Years [...] or concernsahead of appointment. Romi Rodriguez RN ET INSTALLATION SPECIALIST documented in this encounter Plan of Treatment Not on filedocumented as of this encounter Visit Diagnoses Not on filedocumented in this encounter Care Teams Acid Extractor Relationship Specialty Start Date End Date Momo Forbes PCP - General Family Practice 01/02/14 [facility] [address] [place] [address] documented as of this encounter
--- OUTSIDE RECORDS SUMMARY | 2022-05-28 11:19 | XMS_ITS | Encounter Summary ---
:1950 Author Organization [place] Address [address] [place] [address] Care Team Providers Name Role Phone Forbes, Momo He Primary Care Provider Reason for Visit Reason Comments RECHECK Kidney tx follow up Encounter Details Date Type Department Care Team Description 10/10/2017 Office Visit [facility] Shiva Presley Sta tus post kidney transplant (Primary Dx); Nephrology Clinic Immunosuppression (H); [facility] Type 2 diabetes mellitus wit h stage 3 chronic kidney disease, with long-term current use of insulin (H); [address] [place] [address] Benign essential hypertension; [address] Hyperlipidemia, unspecified hyperlipidemia type; [place], [place] RANJAN [address] Skin cancer screening [phone] [place] [address] (Wo rk) Social History Tobacco [...] Comments Blood Pressure 153/74 10/10/2017 2:25 PM VEHICLE INSPECTOR Pulse 55 10/10/2017 2:25 PM VEHICLE INSPECTOR Temperature 36.7 ??C (98.1 ??F) 10/10/2017 2:25 PM VEHICLE INSPECTOR Respiratory Rate - - Oxygen Saturation 98% 10/10/2017 2:25 PM VEHICLE INSPECTOR Inhaled Oxygen Concentration - - Weight 135.4 kg (298 lb 6.4 oz) 10/10/2017 2:25 PM VEHICLE INSPECTOR Height 182.9 cm (6') 10/10/2017 2:25 PM VEHICLE INSPECTOR Body Mass Index 40.47 10/10/2017 2:25 PM VEHICLE INSPECTOR documented in this encounter Progress Notes Shiva [...] is well as a referral to his track rider for monitoring for any skin cancers. 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 CLE INSPECTOR documented in this encounter Nursing Notes [place] [...] Medication Reconciliation: complete MONROE ZURITA CMA . CLE INSPECTOR documented in this encounter Plan of [...] skin documented in this encounter Care Teams Paint Laboratory Technician Relationship Specialty Start Date End Date Momo Forbes PCP - General Family Practice 01/02/14 [facility] [address] [place] [address] documented as of this encounter
--- OUTSIDE RECORDS SUMMARY | 2022-05-28 11:19 | XMS_ITS | Encounter Summary ---
:1950 Author Organization [place] Address [facility] [place] [address] Care Team Providers Name Role Phone Momo Forbes Primary Care Provider Joseph Quintana MD Unavailable Encounter Details Date Type Department Care Team Description 09/09/2017 External Order [facility] Nurse, [facility] Kidney replaced by Results Transplant Clinic transplant [address] [place] [phone] Social History Tobacco Use Types Packs/Day [...] 07/15/2017 10:48 AM Result s for this ELECTRICIAN HELPER procedure are i n the results section. BASIC METABOLIC Routine 07/15/2017 10:48 AM Kidney replaced by Results for this PANEL ELECTRICIAN HELPER transplant procedure are i n the results [...] Results (ABNORMAL) Hemoglobin A1c (07/15/2017 10:48 AM ELECTRICIAN HELPER) Patholo gist Method Time Signature Hemoglobin A1C >14.0 (H) <=6.4 % LABDE SCAN (External) Specimen (Source) Anatomical Collection Method Collection Time Re ceived Time Location / / Volume Laterality Blood specimen 07/15/2017 10:48 (specimen) AM ELECTRICIAN HELPER Narrative ZACHERYMARIELABea PFT - 09/09/2017 9:36 PM ELECTRICIAN HELPER Verified by Sharon Martinez on 8. Patient Reported LAB - BLOOD ORDERABLES Performing Organization Address City/State/ZIP Code Phon e Number JESSICA PFT LABDE SCAN (ABNORMAL) Basic metabolic panel (07/15/2017 10:48 AM ELECTRICIAN HELPER) Analysis Performed At Patho logist Time [...] 55 (L) >60 LABDE SCAN (if ml/min/1.7 [place]) 3m2 (External) GFR Estimated 46 (L) >60 LABDE SCAN (External) ml/min/1.7 3m2 Specimen (Source) Anatomical Collection Method Collection Time Re ceived Time Location / / Volume Laterality Blood specimen 07/15/2017 10:48 (specimen) AM ELECTRICIAN HELPER Narrative BREE[facility] PFT - 09/09/2017 9:36 PM ELECTRICIAN HELPER Verified by Sharon Martinez on 8. [place] [...] Narrative BREEZE PFT - 09/09/2017 9:39 PM ELECTRICIAN HELPER Verified by Sharon Martinez on 8. Patient [...] Narrative BREEZE PFT - 09/09/2017 9:39 PM ELECTRICIAN HELPER Verified by Sharon Martinez on 8. [place] [...] 51 (L) >60 LABDE SCAN (if ml/min/1.7 [place]) 3m2 (External) GFR Estimated 42 (L) >60 LABDE SCAN (External) ml/min/1.7 3m2 Specimen (Source) Anatomical Collection Method Collection Time Re ceived Time Location / / Volume Laterality Blood specimen 05/30/2017 9:32 AM (specimen) CDT Narrative [facility] PFT - 09/09/2017 9:39 PM ELECTRICIAN HELPER Verified by Sharon Martinez on 8. [place] [...] Narrative BREEZE PFT - 09/09/2017 9:44 PM ELECTRICIAN HELPER Verified by Sharon Martinez on 8. Patient [...] Narrative BREEZE PFT - 09/09/2017 9:44 PM ELECTRICIAN HELPER Verified by Sharon Martinez on 8. Patient [...] Narrative BREEZE PFT - 09/09/2017 9:44 PM ELECTRICIAN HELPER Verified by Sharon Martinez on 8. Patient [...] 55 (L) >60 LABDE SCAN (if ml/min/1.7 [place]) 3m2 (External) GFR Estimated 46 (L) >60 LABDE SCAN (External) ml/min/1.7 3m2 Specimen (Source) Anatomical Collection Method Collection Time Re ceived Time Location / / Volume Laterality Blood specimen 01/19/2017 9:30 AM (specimen) CDT Narrative JESSICA PFT - 09/09/2017 9:44 PM ELECTRICIAN HELPER Verified by Sharon Martinez on 8. Patient Reported LAB - BLOOD ORDERABLES Performing Organization Address City/State/ZIP Code Phon e Number BREEZBea PFT LABDE SCAN documented in this encounter Visit Diagnoses Diagnosis Kidney replaced by transplant documented in this encounter Care Teams High School Art Teacher Relationship Specialty Start Date End Date Momo Forbes PCP - General Family Practice 01/02/14 [facility] [address] [place] [address] Joseph Quintana, Assigned Nephrology 03/29/21 Provider [address] [facility] 353 [facility] [address] [place] [address] documented as of this encounter
--- OUTSIDE RECORDS SUMMARY | 2022-05-28 11:20 | XMS_ITS | Encounter Summary ---
:1950 Author Organization [place] Address Formerly [facility]0 [facility] [place] [address] Care Team Providers Name Role Phone Leidy Momo He Primary Care Provider Reason for Visit Reason Onset Date Comments Transplant 03/30/2016 refill Encounter Details Date Type Department Care Team Description 03/30/2016 Refill The Transplant Deysi Burns MD Transplant (refill) 2nd Floor, Clinic [id number] [place] [address] [facility] [place] [address] Social History Tobacco Use [...] Date: 02/19/16 Quantity: 240 Thanks!! Janelle Jackson [facility] documented in this encounter Plan of Treatment Not on filedocumented as of this encounter Visit Diagnoses Diagnosis Kidney transplanted - Primary Kidney replaced by transplant documented in this encounter Care Teams Machine Maintenance Mechanic Relationship Specialty Start Date End Date Momo Forbes PCP - General Family Practice 01/02/[address] [address] documented as of this encounter
--- OUTSIDE RECORDS SUMMARY | 2022-05-28 11:20 | XMS_ITS | Encounter Summary ---
:1950 Author Organization [place] Address Count includes the [facility]0 [facility] [place] [address] Care Team Providers Name Role Phone Forbes, Ton Primary Care Provider Reason for Visit Reason Comments RECHECK 6 mo follow up,christiano cruz Encounter Details Date Type Department Care Team Description 04/20/2016 Office Visit [facility] Chucho Joshi, Renal hypertension, stage 1-4 or unspecified chronic kidney disease (Primary Dx); Nephrology Clinic Reactive depression; [address] Thrombocytopenia (H) 909 [facility] RANJAN [address] [place] [phone] Social History Tobacco Use Types Packs/Day [...] Body Mass Index 41.55 09/02/2015 4:32 PM MECHANICAL PLANNER documented in this encounter Progress Notes Chucho [...] encounter Results Folate RBC (10/25/2016 3:54 PM MECHANICAL PLANNER) athologist Signature HCT Within 46.0 % [address] Folate RBC 663 ng/mL [facility] Comment: Reference range: >=366 (Note) Performed by [facility], [address] [place] [address] [email or web address] Code, Geoff Reed MD, Lab. Director Specimen Anatomical Collection Method Collection Time Receive d Time (Source) Location / / Volume Laterality Blood specimen 10/25/2016 3:54 PM 017 3:55 (specimen) MECHANICAL PLANNER PM MECHANICAL PLANNER Chucho Joshi MD LAB - BLOOD ORDERABLES Performing Organization Address City/State/[facility] Code Phon e Number [address] [address] [facility] documented in this encounter Visit Diagnoses Diagnosis Renal hypertension, stage 1-4 or unspeci fied chronic kidney disease - Primary Reactive depression Dysthymic disorder Thrombocytopenia (H) Thrombocytopenia, unspecified documented in this encounter Care Teams Vp Ad Products And Planning Relationship Specialty Start Date End Date Momo Forbes PCP - General Family Practice 01/02/[address] [address] documented as of this encounter
--- OUTSIDE RECORDS SUMMARY | 2022-05-28 11:20 | XMS_ITS | Encounter Summary ---
:1950 Author Organization [place] Address [address] [place] [address] Care Team Providers Name Role Phone Ingrid Santana RN Unavailable Unavailable Momo Forbes Primary Care Provider Encounter Details Date Type Department Care Team Description 07/22/2015 Orders Only [facility] Dereck Dangelo MD [facility] Laborato ry [address] [facility] 195 500 [place], [place] [phone] [place] [address] [phone] Social History Tobacco Use Types Packs/Day Years [...] PM R esults for this MASS SPECTROMETRY MEDICAL INSURANCE CODING SPECIALIST procedure are in the results section. documented in this encounter Results Tacrolimus level (08/12/2015 4:35 PM MEDICAL INSURANCE CODING SPECIALIST) [facility] Method Time Signature Tacrolimus Last 0700 [facility] Dose 08/12/15 [facility] Tacrolimus 5.3 5.0 [facility] Level 15.0 ug/L [facility] Comment: Tacrolimus Reference Range [...] its perform ance characteristics determined by the [facility], ??Special Chemistry Laboratory. It has not been cleared or approved by the FDA . The laboratory is regulated under CLIA as qualified to perform high-complexity testing. This test is used for clinical purposes. It should not be regarded as investigational or for research. Specimen Anatomical Collection Method Collection Time Receive d Time (Source) Location / / Volume Laterality 08/12/2015 4:35 PM 5 9:11 MEDICAL INSURANCE CODING SPECIALIST AM MEDICAL INSURANCE CODING SPECIALIST Mingo Dangelo MD LAB - BLOOD ORDERABLES Performing Organization Address City/State/ZIP Code Phon e Number [facility] [address] documented in this encounter Visit Diagnoses Not on filedocumented in this encounter Care Teams Oxidized Finish Plater Relationship Specialty Start Date End Date Momo Forbes PCP - General Family Practice 01/02/14 [facility] 1999 [place] [address] Ingrid Santana, RN Registered Nurse Transplant 02/10/12 documented as of this encounter
--- OUTSIDE RECORDS SUMMARY | 2022-05-28 11:20 | XMS_ITS | Encounter Summary ---
:1950 Author Organization [place] Address [facility] [place] [address] Care Team Providers Name Role Phone Momo Forbes Primary Care Provider Joseph Quintana MD Unavailable Encounter Details Date Type Department Care Team Description 03/18/2016 External Order Results [facility] Nurse, [facility] Transplant Clinic 9 [place] [address] Social History Tobacco Use Types [...] External Lab Result (03/17/2016 10:45 AM CDT) [facility] Method Time Signature Sodium (External) 139 [...] on filedocumented in this encounter Care Teams Enforcement Safety Officer Relationship Specialty Start Date End Date Momo Forbes PCP - General Family Practice 01/02/14 [facility] [address] [place] [address] Joseph Quintana, Assigned Nephrology 03/29/21 MD Provider [address] [place] [address] [address] [place] [address] documented as of this encounter
--- OUTSIDE RECORDS SUMMARY | 2022-05-28 11:20 | XMS_ITS | Encounter Summary ---
:1950 Author Organization [place] Address [address] [place] [address]. [place] [address] Care Team Providers Name Role Phone Ingrid Santana RN Unavailable Unavailable Momo Forbes Primary Care Provider Encounter Details Date Type Department Care Team Description 08/29/2015 Orders Only The Transplant Deepa Morgan Aftercare following organ tr ansplant (Primary Dx); 2nd Floor, Clinic 2A Saima Kidney replaced by transplan t; Tommy Wilburn [facility] er for long-term current use of medication [address] [phone] Social History Tobacco Use Types Packs/Day Years [...] edication documented in this encounter Care Teams Group Counselor Relationship Specialty Start Date End Date Momo Forbes PCP - General Family Practice 01/02/14 [facility] [address] [place] [address] Ingrid Santana, RN Registered Nurse Transplant 02/10/12 documented as of this encounter
--- OUTSIDE RECORDS SUMMARY | 2022-05-28 11:20 | XMS_ITS | Encounter Summary ---
:1950 Author Organization [place] Address [address] [place] [address]. [place] [address] Care Team Providers Name Role Phone Momo Forbes Primary Care Provider Reason for Visit Reason Onset Date Comments Transplant 03/15/2016 refill Encounter Details Date Type Department Care Team Description 03/15/2016 Refill [facility] Cristy Chen LPN T ransplant (refill) Transplant Clinic [address] [place] [address] [phone] Social History Tobacco Use Types Packs/Day [...] transplant documented in this encounter Care Teams Litigation Secretary Relationship Specialty Start Date End Date Momo Forbes PCP - General Family Practice 01/02/14 [facility] [address] [place] [address] documented as of this encounter
--- OUTSIDE RECORDS SUMMARY | 2022-05-28 11:20 | XMS_ITS | Encounter Summary ---
:1950 Author Organization [place] Address [facility]0 [facility] [place] [address] Care Team Providers Name Role Phone Ingrid Santana RN Unavailable Unavailable Momo Forbes Primary Care Provider Joseph Quintana MD Unavailable Encounter Details Date Type Department Care Team Description 02/03/2015 External Order Results The Transplant Ce nter Nurse, [facility] 2nd Floor, Clinic [address]A [address] [phone] Social History Tobacco Use Types Packs/Day Years [...] External Lab Result (01/28/2015 8:56 AM CDT) [facility] Method Time Signature Sodium (External) 140 [...] filedocumented in this encounter Care Teams Core Microarchitect Relationship Specialty Start Date End Date Momo Forbes PCP - General Family Practice 01/02/14 [facility] [address] [place] [address] Ingrid Santana, RN Registered Nurse Transplant 02/10/12 Joseph Quintana, Assigned Nephrology 03/29/21 MD Provider [address] [place] [address] [address] [place], [place] [address] documented as of this encounter
--- OUTSIDE RECORDS SUMMARY | 2022-05-28 11:20 | XMS_ITS | Encounter Summary ---
:1950 Author Organization [place] Address [address] [place] [address] Care Team Providers Name Role Phone ForbesMomo santiago A Primary Care Provider Encounter Details Date Type Department Care Team Description 02/20/2016 Orders Only [facility] Mraiano, Joseph Perdomo isael, [facility] jm MICHELE 500 [facility] 717 [place], [place] [phone] [address] [address] [place] [address] (Wo rk) Social History Tobacco [...] (ABNORMAL) Tacrolimus level (03/17/2016 10:44 AM CDT) [facility] Method Time Signature Tacrolimus Last 2100 [facility] Dose 03/16/16 [facility] Tacrolimus 4.2 (L) 5.0 [facility] Level 15.0 ug/L [facility] Comment: Tacrolimus Reference Range Kidney Transplant Pediatric [...] 10:44 03/18/2016 AM CDT 10:09 AM CDT Minog Dangelo MD LAB - BLOOD ORDERABLES Performing Organization Address City/State/ZIP Code Phon e Number [facility] 500 [place], [place] [phone] [place] [address] documented in this encounter Visit Diagnoses Not on filedocumented in this encounter Care Teams Predatory Animal Exterminator Relationship Specialty Start Date End Date Momo Forbes PCP - General Family Practice 01/02/14 [facility] [address] [place] [address] documented as of this encounter
--- OUTSIDE RECORDS SUMMARY | 2022-05-28 11:20 | XMS_ITS | Encounter Summary ---
:1950 Author Organization [place] Address [address] [place] [address] Care Team Providers Name Role Phone Momo Forbes Primary Care Provider Reason for Visit Reason Onset Date Comments Transplant 05/10/2016 refill Encounter Details Date Type Department Care Team Description 05/10/2016 Refill The Transplant Chucho Perez MD Transplant (refill) 2nd Floor, Clinic [address]A [address] [place] [address] [facility] [place] [address] Social History Tobacco Use Types [...] send new rx Thank you Janelle Flowers [facility] [phone] documented in this encounter Plan of Treatment Not on filedocumented as of this encounter Visit Diagnoses Diagnosis Kidney transplanted - Primary Kidney replaced by transplant documented in this encounter Care Teams Net Software Engineer Relationship Specialty Start Date End Date Momo Forbes PCP - General Family Practice 01/02/14 [place] [id number] documented as of this encounter
--- OUTSIDE RECORDS SUMMARY | 2022-05-28 11:20 | XMS_ITS | Encounter Summary ---
:1950 Author Organization [place] Address [address] [place] [address] Care Team Providers Name Role Phone Momo Forbes A Primary Care Provider Encounter Details Date Type Department Care Team Description 07/22/2016 Orders Only [facility] Mariano, Joseph Perdomo isael, [facility] [place] 500 [facility] 717 [place], [place] [phone] [address] [address] [place] [address] (Wo rk) Social History Tobacco [...] Res ults for this MASS SPECTROMETRY PM R D ENGINEER procedure are in the results section. documented in this encounter Results (ABNORMAL) Tacrolimus level (08/09/2016 12:15 PM R D ENGINEER) [facility] Method Time Signature Tacrolimus Last 08/08/[address] Tacrolimus 3.8 (L) 5.0 [facility] Level 15.0 ug/L [facility] Comment: Tacrolimus Reference Range Kidney [...] perform ance characteristics determined by the [facility], ??Special Chemistry Laboratory. It has [...] / Volume Laterality 08/09/2016 12:15 08/11/2016 PM R D ENGINEER 10:15 AM R D ENGINEER Deysi Alicea MD LAB - BLOOD ORDERABLES Performing Organization Address City/State/ZIP Code Phon e Number [facility] [address] documented in this encounter Visit Diagnoses Not on filedocumented in this encounter Care Teams Meat Sales And Storage Manager Relationship Specialty Start Date End Date Momo Forbes PCP - General Family Practice 01/02/14 [facility] [address] [place] [address] documented as of this encounter
--- OUTSIDE RECORDS SUMMARY | 2022-05-28 11:20 | XMS_ITS | Encounter Summary ---
:1950 Author Organization [place] Address [facility] [address] Care Team Providers Name Role Phone Momo Forbes Primary Care Provider Joseph Quintana MD Unavailable Encounter Details Date Type Department Care Team Description 05/03/2016 External Order Results [facility] Nurse, [facility] Transplant Clinic [address] [place] [address] Social History Tobacco Use Types [...] on filedocumented in this encounter Care Teams Nibbler Operator Relationship Specialty Start Date End Date Momo Forbes PCP - General Family Practice 01/02/14 [facility] [address] [place] [address] Joseph Quintana, Assigned Nephrology 03/29/21 MD Provider [address] [place], [place] [address] documented as of this encounter
--- OUTSIDE RECORDS SUMMARY | 2022-05-28 11:20 | XMS_ITS | Encounter Summary ---
:1950 Author Organization [place] Address [address] [place] [address]. [place] [address] Care Team Providers Name Role Phone Momo Forbes Primary Care Provider Reason for Visit Reason Onset Date Comments Transplant 04/20/2016 refill Encounter Details Date Type Department Care Team Description 04/20/2016 Refill [facility] Joseph Quintana, Transplant (refill) Transplant Clinic [address] [place] [phone] [place] [address] (Wo rk) Social History Tobacco [...] transplant documented in this encounter Care Teams Third Hand Relationship Specialty Start Date End Date Momo Forbes PCP - General Family Practice 01/02/14 [facility] [address] [place] [address] documented as of this encounter
--- OUTSIDE RECORDS SUMMARY | 2022-05-28 11:20 | XMS_ITS | Encounter Summary ---
:1950 Author Organization [place] Address [facility] [place] [address] Care Team Providers Name Role Phone Ingrid Santana RN Unavailable Unavailable Momo Forbes Primary Care Provider Reason for Referral Consultation - Closed Specialty Diagnoses / Procedures Referred By Contact Refer red To Contact Diagnoses Morbid obesity due to excess calories (H) Deysi Alicea MD [facility] [address] [place] [address] Referral ID Status Reason Start Date Expiration Date Visits Requ ested Visits Authorized [id number] Closed 09/02/2015 09/01/2016 1 1 UCT DEVELOPMENT DIRECTOR Reason for Visit Reason Comments RECHECK Follow up Kidney TX 4 Encounter Details Date Type Department Care Team Description 09/02/2015 Office Visit Nephrology Deysi Alicea, S/P kidney transplant (Prima ry Dx); 2nd Floor, Clinic 2A Morbid obesity due to excess calories (H ) Tommy Wilburn [address] [place] [phone] [place] [address] (Wo rk) [address] [phone] Social History Tobacco Use Types Packs/Day Years [...] Comments Blood Pressure 128/72 09/02/2015 4:32 PM PRODUCT DEVELOPMENT DIRECTOR Pulse 61 09/02/2015 4:32 PM PRODUCT DEVELOPMENT DIRECTOR Temperature 36.7 ??C (98 ??F) 09/02/2015 4:32 PM PRODUCT DEVELOPMENT DIRECTOR Respiratory Rate - - Oxygen Saturation 94% 09/02/2015 4:32 PM PRODUCT DEVELOPMENT DIRECTOR Inhaled Oxygen Concentration - - Weight 141.8 kg (312 lb 9.6 oz) 09/02/2015 4:32 PM PRODUCT DEVELOPMENT DIRECTOR Height 182.9 cm (6' 0.01) 09/02/2015 4:32 PM PRODUCT DEVELOPMENT DIRECTOR Body Mass Index 42.39 09/02/2015 4:32 PM PRODUCT DEVELOPMENT DIRECTOR documented in this encounter Progress Notes [...] discharged on Cumadin; Cumadin was stopped by radiology resident during the follow up visit, as he [...] Years of Education: 14 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 BP completed using cuff size: large UCT DEVELOPMENT DIRECTOR documented in this encounter Plan of [...] ) documented in this encounter Care Teams Elastic Assembler Relationship Specialty Start Date End Date Momo Forbes PCP - General Family Practice 01/02/14 [facility] [address] [place] [address] Ingrid Santana, RN Registered Nurse Transplant 02/10/12 documented as of this encounter
--- OUTSIDE RECORDS SUMMARY | 2022-05-28 11:20 | XMS_ITS | Encounter Summary ---
:1950 Author Organization [place] Address [address] [place] [address]. [place] [address] Care Team Providers Name Role Phone Momo Forbes Primary Care Provider Reason for Visit Reason Onset Date Comments Transplant Pharmacy Medication Review 02/05/2016 Encounter Details Date Type Department Care Team Description 02/05/2016 Telephone [facility] Nani Humphrey, [facility] Transplant Pharmacy 500 [facility] [place] [address] [place] [phone] [place] [address] (Wo rk) Social History Tobacco Use Types [...] on filedocumented in this encounter Care Teams Dinkey Press Operator Relationship Specialty Start Date End Date Momo Forbes PCP - General Family Practice 01/02/14 [facility] [address] [place] [address] documented as of this encounter
--- OUTSIDE RECORDS SUMMARY | 2022-05-28 11:20 | XMS_ITS | Encounter Summary ---
:1950 Author Organization [place] Address [facility] [place] [address] Care Team Providers Name Role Phone Ingrid Santana RN Unavailable Unavailable Momo Forbes Primary Care Provider Reason for Visit Reason Onset Date Comments Patient Reminder 08/28/2015 Encounter Details Date Type Department Care Team Description 08/28/2015 Telephone Nephrology Yesenia Clements CMA Patient Reminder 2nd Floor, Clinic 2A [place] [phone] Social History Tobacco Use Types Packs/Day [...] Patient confirmed and understood. Yesenia Clements CMA MAINTENANCE TECHNICIAN documented in this encounter Plan of Treatment Not on filedocumented as of this encounter Visit Diagnoses Not on filedocumented in this encounter Care Teams Lumber Mover Relationship Specialty Start Date End Date Momo Forbes PCP - General Family Practice 01/02/14 [facility] [address] [place] [phone] Ingrid Santana, RN Registered Nurse Transplant 02/10/12 documented as of this encounter
--- OUTSIDE RECORDS SUMMARY | 2022-05-28 11:20 | XMS_ITS | Encounter Summary ---
:1950 Author Organization [place] Address [facility] [place] [address] Care Team Providers Name Role Phone Ingrid Santana RN Unavailable Unavailable Momo Forbes Primary Care Provider Reason for Visit Reason Onset Date Comments Refill Request 06/23/2015 amlodipine Encounter Details Date Type Department Care Team Description 06/23/2015 Refill [facility] [address] Refill Request Physicians Orestes Hernandez MD (amlodipine) Tommy [facility] Building [place] 4th Floor, Clinic 4B [address] [phone] (Wo rk) [address] [phone] Social History Tobacco Use Types Packs/Day Years [...] # refills: 3 Last Office Visit with [facility] primary care provider: 05/14/2014 Future Office Visit: BP Readings from Last 3 Encounters: 05/14/14 141/65 05/13/14 139/73 04/09/14 163/78 Ada [facility] [phone] RACT NEGOTIATOR documented in this encounter Plan of Treatment Not on filedocumented as of this encounter Visit Diagnoses Diagnosis HTN (hypertension) - Primary Unspecified essential hypertension documented in this encounter Care Teams Rotor Plate Washer Relationship Specialty Start Date End Date Momo Forbes PCP - General Family Practice 01/02/[address] [address] Ingrid Santana, RN Registered Nurse Transplant 02/10/12 documented as of this encounter
--- OUTSIDE RECORDS SUMMARY | 2022-05-28 11:20 | XMS_ITS | Encounter Summary ---
:1950 Author Organization [place] Address [address] [place] [address]. [place] [address] Care Team Providers Name Role Phone Ingrid Santana RN Unavailable Unavailable Momo Forbes Primary Care Provider Reason for Visit Reason Onset Date Comments Refill Request 04/21/2015 crestor Encounter Details Date Type Department Care Team Description 04/21/2015 Refill [facility] [address] Refill Request Physicians Orestes Hernandez MD (crestor) Tommy [facility] Building [place] 4th Floor, Clinic 4B [address] [phone] (Wo rk) [address] [phone] Social History Tobacco Use Types Packs/Day Years [...] # refills: 11 Last Office Visit with [facility] primary care provider: 05/14/14 CHOL 126 02/06/2014 HDL 35 02/06/2014 LDL 71 02/06/2014 TRIG 100 02/06/2014 CHOLHDLRATIO 3.6 02/06/2014 Gayathri Orta [facility] 711 [facility] [address] documented in this encounter Plan of Treatment Not on filedocumented as of this encounter Visit Diagnoses Diagnosis DM (diabetes mellitus), type 2 (H) - Ana ashley Type II or unspecified type diabetes aung litus without mention of complication, not stated as uncontrolled Other and unspecified hyperlipidemia documented in this encounter Care Teams Building Illuminating Engineer Relationship Specialty Start Date End Date Momo Forbes PCP - General Family Practice 01/02/[address] [address] Ingrid Santana, RN Registered Nurse Transplant 02/10/12 documented as of this encounter
--- OUTSIDE RECORDS SUMMARY | 2022-05-28 11:20 | XMS_ITS | Encounter Summary ---
:1950 Author Organization [place] Address [facility] [place] [address] Care Team Providers Name Role Phone Ingrid Santana RN Unavailable Unavailable Momo Forbes Primary Care Provider Reason for Visit Reason Onset Date Comments Refill Request 02/10/2015 mycophenolate, smz/t mp Encounter Details Date Type Department Care Team Description 02/10/2015 Refill The Transplant Deysi Burns, Refill Request 2nd Floor, Clinic 2A MD (mycophenolate, Sanders Wangensteen [facility] smz/tmp) Building [address] [place] [id number] [place] [address] [place] [address] Social History Tobacco Use Types [...] Fill Date: 01/09/15 Last Fill Quantity: 240 [id number] Last Fill Date: 01/09/15 Last Fill Quantity: 31 Gayathri Or[facility] [address] [place] [phone] documented in this encounter Plan of Treatment Not on filedocumented as of this encounter Visit Diagnoses Diagnosis S/P kidney transplant - Primary Kidney replaced by transplant documented in this encounter Care Teams Operator Maintainer Relationship Specialty Start Date End Date Momo Forbes PCP - General Family Practice 01/02/[address] [address] Ingrid Santana, RN Registered Nurse Transplant 02/10/12 documented as of this encounter
--- OUTSIDE RECORDS SUMMARY | 2022-05-28 11:20 | XMS_ITS | Encounter Summary ---
:1950 Author Organization [place] Address [facility] [place] [address] Care Team Providers Name Role Phone Momo Forbes Primary Care Provider Joseph Quintana MD Unavailable Encounter Details Date Type Department Care Team Description 08/18/2016 External Order Results [facility] Nurse, [facility] Transplant Clinic 9 [place] [address] Social History Tobacco Use [...] 08/09/2016 12:21 PM Results for this RESULTS RICKSHAW DRIVER procedure are i n the results section. documented in this encounter Results (ABNORMAL) TXP External Lab Result (08/09/2016 12:21 PM RICKSHAW DRIVER) Analysis Performed At Patho logist Time Signature [...] / / Volume Laterality 08/09/2016 12:21 PM RICKSHAW DRIVER Narrative [facility] - 08/18/2016 1:35 PM RICKSHAW DRIVER Verified by Jessica Major on 016. Patient Reported LABORATORY Performing Organization Address City/State/ZIP Code Phon e Number [facility] LABDE SCAN documented in this encounter Visit Diagnoses Not on filedocumented in this encounter Care Teams Sprayer Operator Relationship Specialty Start Date End Date Momo Forbes PCP - General Family Practice 01/02/14 [facility] [address] [place], [place] [phone] Joseph Quintana, Assigned Nephrology 03/29/21 MD Provider [address] [place] [address] 353 [facility] 1932 [place], [place] [address]489[address] documented as of this encounter
--- OUTSIDE RECORDS SUMMARY | 2022-05-28 11:20 | XMS_ITS | Encounter Summary ---
:1950 Author Organization [place] Address [address] [place] [address]. [place] [address] Care Team Providers Name Role Phone Momo Forbes Primary Care Provider Reason for Visit Reason Onset Date Comments Transplant 01/16/2016 refill Encounter Details Date Type Department Care Team Description 01/16/2016 Refill The Transplant Deysi Burns MD Transplant (refill) 2nd Floor, Clinic [address]A [phone] [place] [address] [facility] [place] [address] Social History Tobacco Use Types [...] transplant documented in this encounter Care Teams Medicine Worker Relationship Specialty Start Date End Date Momo Forbes PCP - General Family Practice 01/02/14 [facility] 1999 [place], [place] [id number] documented as of this encounter
--- OUTSIDE RECORDS SUMMARY | 2022-05-28 11:20 | XMS_ITS | Encounter Summary ---
:1950 Author Organization [place] Address [address] [place] [address]. [place] [address] Care Team Providers Name Role Phone Momo Forbes Primary Care Provider Reason for Visit Reason Onset Date Comments Transplant 02/19/2016 refill Encounter Details Date Type Department Care Team Description 02/19/2016 Refill The Transplant Deysi Burns MD Transplant (refill) 2nd Floor, Clinic 2A [phone] [place] [address] [facility] [place] [address] Social History Tobacco Use Types [...] transplant documented in this encounter Care Teams Operations Liaison Relationship Specialty Start Date End Date Momo Forbes PCP - General Family Practice 01/02/14 [facility] 1999 [place], [place] [phone] documented as of this encounter
--- OUTSIDE RECORDS SUMMARY | 2022-05-28 11:20 | XMS_ITS | Encounter Summary ---
:1950 Author Organization [place] Address [facility] [place] [address] Care Team Providers Name Role Phone ForbesMomo prakash A Primary Care Provider Reason for Visit Reason Onset Date Comments Transplant Immunosuppression Management 08/13/2016 Encounter Details Date Type Department Care Team Description 08/13/2016 Telephone [facility] Shiva Kahn Transp lant Transplant Clinic RN Immunosuppression 9 [facility] Management [address] [phone] [place] [address] [place], [place] [address] Social History Tobacco Use Types Packs/Day Years [...] Patient will repeat labs in 1-2 weeks. FLIGHT REFUELING CRAFTSMAN Telephone Encounter - Shiva Kahn, RN - 08/13/2016 7:42 AM CST Tacrolimus level 3.8 reported as 18-hour level. PLAN: Verify timing of labs tac dose and time of blood draw for tac level. Repeat tac level taking care to get a good 12-hour level (11-13 hours acceptable). TASK: Please call patient with questions and instructions per plan. FLIGHT REFUELING CRAFTSMAN documented in this encounter Plan of Treatment Not on filedocumented as of this encounter Visit Diagnoses Diagnosis Kidney replaced by transplant - Primary Aftercare following organ transplant Encounter for long-term current use of m edication documented in this encounter Care Teams Dust Collector Treater Relationship Specialty Start Date End Date Momo Forbes PCP - General Family Practice 01/02/14 [facility] [address] [place] [address] documented as of this encounter
--- OUTSIDE RECORDS SUMMARY | 2022-05-28 11:20 | XMS_ITS | Encounter Summary ---
:1950 Author Organization [place] Address [facility]0 [facility] [place] [address] Care Team Providers Name Role Phone Ingrid Santana RN Unavailable Unavailable Momo Forbes Primary Care Provider Joseph Quintana MD Unavailable Encounter Details Date Type Department Care Team Description 08/14/2015 External Order Results The Transplant Ce nter Nurse, [facility] 2nd Floor, Clinic [address]A [address] [phone] Social History Tobacco Use Types Packs/Day Years [...] 4:41 PM Results f or this RESULTS MALT HOUSE LOADER procedure are i n the results section. documented in this encounter Results (ABNORMAL) TXP External Lab Result (08/12/2015 4:41 PM MALT HOUSE LOADER) Analysis Performed At Patho logist Time Signature [...] 59 (L) >60 LABDE SCAN (if mL/min/1.7 [place]er) 3/m2 (External) GFR Estimated 48 (L) >60 [...] / / Volume Laterality 08/12/2015 4:41 PM MALT HOUSE LOADER Narrative [facility]ESSICA [facility] - 08/14/2015 9:25 AM MALT HOUSE LOADER Verified by Freddy Mehta on 08/14. Patient Reported LABORATORY Performing Organization Address City/State/ZIP Code Phon e Number [facility] LABDE SCAN documented in this encounter Visit Diagnoses Not on filedocumented in this encounter Care Teams Ore Miner Blasting Relationship Specialty Start Date End Date Momo Forbes PCP - General Family Practice 01/02/14 [facility] [address] [place] [address] Ingrid Santana, RN Registered Nurse Transplant 02/10/12 Joseph Quintana, Assigned Nephrology 03/29/21 MD Provider [address] [place] [address] 1932 [place] [address] documented as of this encounter
--- OUTSIDE RECORDS SUMMARY | 2022-05-28 11:20 | XMS_ITS | Encounter Summary ---
:1950 Author Organization [place] Address [address] [place] [address]. [place] [address] Care Team Providers Name Role Phone Momo Forbes Primary Care Provider Reason for Visit Reason Onset Date Comments Transplant 02/06/2016 refill Encounter Details Date Type Department Care Team Description 02/06/2016 Refill [facility] Cristy Chen LPN T ransplant (refill) Transplant Clinic [address] [place] [phone] Social History Tobacco Use Types Packs/Day [...] transplant documented in this encounter Care Teams Hand Sample Maker Relationship Specialty Start Date End Date Momo Forbes PCP - General Family Practice 01/02/14 [facility] [address] [place] [address] documented as of this encounter
--- OUTSIDE RECORDS SUMMARY | 2022-05-28 11:20 | XMS_ITS | Encounter Summary ---
:1950 Author Organization [place] Address [address] [place] [address]. [place] [address] Care Team Providers Name Role Phone Momo Forbes Primary Care Provider Reason for Visit Reason Onset Date Comments Transplant 02/19/2016 refill Encounter Details Date Type Department Care Team Description 02/19/2016 Refill The Transplant Deysi Burns MD Transplant (refill) 2nd Floor, Clinic [address]A [phone] [place] [address] [facility] [place] [address] Social History Tobacco Use Types [...] documented in this encounter Care Teams Network Pricing Consultant Relationship Specialty Start Date End Date Momo Forbes PCP - General Family Practice 01/02/14 [facility] 1999 [place], [place] [phone] documented as of this encounter
--- OUTSIDE RECORDS SUMMARY | 2022-05-28 11:21 | XMS_ITS | Encounter Summary ---
:1950 Author Organization [place] Address [address] [place] [address] Care Team Providers Name Role Phone Ingrid Santana RN Unavailable Unavailable Momo Forbes Primary Care Provider Encounter Details Date Type Department Care Team Description 12/20/2014 Orders Only [facility] Spong, Joseph Conor isael, [facility] 500 [facility] [address] [place] [phone] [place] [address] 026 [place] [address] (Wo rk) Social History Tobacco [...] Results Tacrolimus level (12/25/2014 9:45 AM CDT) [facility] Method Time Signature Tacrolimus Last 12/24/14 [facility] Dose 2130 [facility] Tacrolimus 9.5 5.0 - [facility] 15.0 ug/L [facility] Comment: Tacrolimus Reference [...] its perform ance characteristics determined by the [facility], [...] Phon e Number [facility] [address] documented in this encounter Visit Diagnoses Not on filedocumented in this encounter Care Teams Credit Officer Relationship Specialty Start Date End Date Momo Forbes PCP - General Family Practice 01/02/14 [facility] 1999 [place] [address] Ingrid Santana, RN Registered Nurse Transplant 02/10/12 documented as of this encounter
--- OUTSIDE RECORDS SUMMARY | 2022-05-28 11:21 | XMS_ITS | Encounter Summary ---
:1950 Author Organization [place] Address [address] [place] [address] Care Team Providers Name Role Phone Ingrid Santana RN Unavailable Unavailable Momo Forbes Primary Care Provider Encounter Details Date Type Department Care Team Description 09/22/2014 Orders Only [facility] Spong, Joseph Conor isael, [facility] 500 [facility] [address] [place] [phone] [place] [address] 920 [place] [address] (Wo rk) Social History Tobacco [...] AM R esults for this MASS SPECTROMETRY INDUSTRIAL GAS FITTER procedure are in the results section. TACROLIMUS BY TANDEM Routine 10/03/2014 8:30 AM R esults for this MASS SPECTROMETRY INDUSTRIAL GAS FITTER procedure are in the results section. documented in this encounter Results Tacrolimus level (10/17/2014 8:15 AM INDUSTRIAL GAS FITTER) [facility] gist Method Time Signature Tacrolimus Last 2029 [facility] Dose 10/16/14 [facility] Tacrolimus 9.2 5.0 - [facility] Level 15.0 ug/L [facility] Comment: Tacrolimus Reference Range Kidney Transplant Pediatric [...] / Volume Laterality 10/17/2014 8:15 AM 5 INDUSTRIAL GAS FITTER 11:17 AM INDUSTRIAL GAS FITTER Mingo Dangelo MD LAB - BLOOD ORDERABLES Performing Organization Address City/State/ZIP Code Phon e Number [facility] 500 [place] [address] [facility] Tacrolimus level (10/03/2014 8:30 AM INDUSTRIAL GAS FITTER) [facility] gist Method Time Signature Tacrolimus Last 10/02/14 [facility] Dose 2030 [facility] Tacrolimus 7.4 5.0 - [facility] Level 15.0 ug/L [facility] Comment: Tacrolimus Reference Range Kidney Transplant Pediatric [...] / Volume Laterality 10/03/2014 8:30 AM 5 INDUSTRIAL GAS FITTER 11:09 AM INDUSTRIAL GAS FITTER Mingo Dangelo MD LAB - BLOOD ORDERABLES Performing Organization Address City/State/ZIP Code Phon e Number [facility] [address] documented in this encounter Visit Diagnoses Not on filedocumented in this encounter Care Teams Route Relief Driver Relationship Specialty Start Date End Date Momo Forbes PCP - General Family Practice 01/02/14 [facility] 1999 [place] [address] Ingrid Santana, RN Registered Nurse Transplant 02/10/12 documented as of this encounter
--- OUTSIDE RECORDS SUMMARY | 2022-05-28 11:21 | XMS_ITS | Encounter Summary ---
:1950 Author Organization [place] Address [facility] [place] [address] Care Team Providers Name Role Phone Ingrid Santana RN Unavailable Unavailable Momo Forbes Primary Care Provider Reason for Visit Reason Onset Date Comments Transplant 06/20/2014 FK 6.6 Encounter Details Date Type Department Care Team Description 06/20/2014 Telephone Nephrology Carmelita Rosario, Transplant (FK 6.6) 2nd Floor, Clinic 2A [place] [phone] Social History Tobacco Use Types Packs/Day [...] transplant documented in this encounter Care Teams Last Sawyer Relationship Specialty Start Date End Date Momo Forbes PCP - General Family Practice 01/02/[address] [address] Ingrid Santana RN Registered Nurse Transplant 02/10/12 documented as of this encounter
--- OUTSIDE RECORDS SUMMARY | 2022-05-28 11:21 | XMS_ITS | Encounter Summary ---
:1950 Author Organization [place] Address [facility] [place] [address] Care Team Providers Name Role Phone Ingrid Santana RN Unavailable Unavailable Momo Forbes Primary Care Provider Joseph Quintana MD Unavailable Encounter Details Date Type Department Care Team Description 08/28/2014 External Order Results The Transplant Ce nter Nurse, [facility] 2nd Floor, Clinic 2A [address] [phone] Social History Tobacco Use Types Packs/Day Years [...] 08/26/2014 10:25 AM Results for this RESULTS MUSIC PROMOTER procedure are i n the results section. documented in this encounter Results (ABNORMAL) TXP External Lab Result (08/26/2014 10:25 AM MUSIC PROMOTER) Analysis Performed At Patho logist Time Signature [...] 58 (L) >60 LABDE SCAN (if ml/min/1.7 Jamaican) 3m2 (External) GFR Estimated 48 (L) >60 [...] / / Volume Laterality 08/26/2014 10:25 AM MUSIC PROMOTER Narrative JESSICA PFT - 08/28/2014 4:34 PM MUSIC PROMOTER Verified by Freddy Mehta on 08/28. Patient Reported LABORATORY Performing Organization Address City/State/ZIP Code Phon e Number [facility] LABDE SCAN documented in this encounter Visit Diagnoses Not on filedocumented in this encounter Care Teams Cover Creaser Relationship Specialty Start Date End Date Momo Forbes PCP - General Family Practice 01/02/14 [facility] 1999 [place] [address] Ingrid Santana, RN Registered Nurse Transplant 02/10/12 Joseph Quintana, Assigned Nephrology 8/8/21 MD Provider 7 [facility] 353 [facility] 1932 [place], [place] [address] documented as of this encounter
--- OUTSIDE RECORDS SUMMARY | 2022-05-28 11:21 | XMS_ITS | Encounter Summary ---
:1950 Author Organization [place] Address [address] [place] [address]. [place] [address] Care Team Providers Name Role Phone Ingrid Santana RN Unavailable Unavailable Momo Forbes Primary Care Provider Encounter Details Date Type Department Care Team Description 08/03/2014 Abstract The Transplant [facility] r 2nd Floor, Clinic 2A [place] [phone] Social History Tobacco Use Types Packs/Day [...] on filedocumented in this encounter Care Teams Habilitation Training Specialist Relationship Specialty Start Date End Date Momo Forbes PCP - General Family Practice 01/02/14 [facility] 1999 [place] [address] Ingrid Santana RN Registered Nurse Transplant 02/10/12 documented as of this encounter
--- OUTSIDE RECORDS SUMMARY | 2022-05-28 11:21 | XMS_ITS | Encounter Summary ---
:1950 Author Organization [place] Address [address] [place] [address] Care Team Providers Name Role Phone Ingrid Santana RN Unavailable Unavailable Momo Forbes Primary Care Provider Reason for Visit Reason Onset Date Comments Medication Question 01/17/2015 Encounter Details Date Type Department Care Team Description 01/17/2015 Telephone PHARMACY Beny Staton RPH Medication Question 500 [facility] [place] [address] PHARMACY [phone] [place] [address] Social History Tobacco Use Types [...] keep better tabs. His last to in [place] were good but that was 8 months ago. Beny Staton [facility] Specialty Pharmacist [phone] documented in this encounter Plan of Treatment Not on filedocumented as of this encounter Visit Diagnoses Not on filedocumented in this encounter Care Teams Staff Scientist Relationship Specialty Start Date End Date Momo Forbes PCP - General Family Practice 01/02/14 [facility] 1999 [place] [address] Ingrid Santana, RN Registered Nurse Transplant 02/10/12 documented as of this encounter
--- OUTSIDE RECORDS SUMMARY | 2022-05-28 11:21 | XMS_ITS | Encounter Summary ---
:1950 Author Organization [place] Address [facility] [place] [address] Care Team Providers Name Role Phone Ingrid Santana RN Unavailable Unavailable Momo Forbes Primary Care Provider Reason for Visit Reason Onset Date Comments Refill Request 09/06/2014 [facility] Encounter Details Date Type Department Care Team Description 09/06/2014 Refill The Transplant Deysi Burns, Refill Request (Dok 2nd Floor, Clinic 2A MD Plus) Tommy Wilburn [phone] [place] [address] [place] [address] Social History Tobacco Use Types [...] Fill Date: 02/08/14 Quantity: 100 Michael Manuel [facility] [phone] ERSHIP PROGRAM INTERN documented in this encounter Plan of Treatment Not on filedocumented as of this encounter Visit Diagnoses Diagnosis S/P kidney transplant - Primary Kidney replaced by transplant documented in this encounter Care Teams Rubber Grinder Relationship Specialty Start Date End Date Momo Forbes PCP - General Family Practice 01/02/14 [place] [phone] Ingrid Santaan, RN Registered Nurse Transplant 02/10/12 documented as of this encounter
--- OUTSIDE RECORDS SUMMARY | 2022-05-28 11:21 | XMS_ITS | Encounter Summary ---
:1950 Author Organization [place] Address [facility] [place] [address] Care Team Providers Name Role Phone Ingrid Santana RN Unavailable Unavailable Momo Forbes Primary Care Provider Reason for Visit Reason Onset Date Comments Transplant 08/08/2014 immunosuppression ma neil Encounter Details Date Type Department Care Team Description 08/08/2014 Refill Nephrology Shiva Kahn corporate human resources manager 2nd Floor, Clinic 2A [facility] (immunosuppression Sanders Wangensteen 420 [facility] management) Building [address] [place] [address] [phone] Social History Tobacco Use Types Packs/Day Years [...] to lower Prograf dose to 1.5mg BID. EMAN Telephone Encounter - Shiva Kahn RN - 08/08/2014 5:33 PM CST ISSUE: Tacrolimus level 9.0. New target tacrolimus levels 6-8 since patient is now 6 months post kidney transplant. PLAN: Decrease Prograf dose from 2 mg twice daily to 1.5 mg twice daily. TASK: Please call patient with instructions for dose change. 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
--- OUTSIDE RECORDS SUMMARY | 2022-05-28 11:21 | XMS_ITS | Encounter Summary ---
:1950 Author Organization [place] Address [address] [place] [address] Care Team Providers Name Role Phone Ingrid Santana RN Unavailable Unavailable Momo Forbes Primary Care Provider Encounter Details Date Type Department Care Team Description 08/22/2014 Orders Only [facility], Joseph Conor isael, [facility] 500 [facility] [address] [place] [phone] [place] [address] 265 [place] [address] (Wo rk) Social History Tobacco [...] Res ults for this MASS SPECTROMETRY AM INTERNATIONAL OPERATIONS MANAGER procedure are in the results section. documented in this encounter Results Tacrolimus level (08/26/2014 10:21 AM INTERNATIONAL OPERATIONS MANAGER) [facility] Method Time Signature Tacrolimus Last 01/04/[address] Tacrolimus 6.6 5.0 - [facility] Level 15.0 ug/L [facility] Comment: Tacrolimus Reference Range [...] / Volume Laterality 08/26/2014 10:21 08/28/2014 AM INTERNATIONAL OPERATIONS MANAGER 11:34 AM INTERNATIONAL OPERATIONS MANAGER Mingo Dangelo MD LAB - BLOOD ORDERABLES Performing Organization Address City/State/ZIP Code Phon e Number [facility] [address] documented in this encounter Visit Diagnoses Not on filedocumented in this encounter Care Teams Upholstery Instructor Relationship Specialty Start Date End Date Momo Forbes PCP - General Family Practice 01/02/14 [facility] 1999 [place] [address] Ignrid Santana, RN Registered Nurse Transplant 02/10/12 documented as of this encounter
--- OUTSIDE RECORDS SUMMARY | 2022-05-28 11:21 | XMS_ITS | Encounter Summary ---
:1950 Author Organization [place] Address [facility] [place] [address] Care Team Providers Name Role Phone Ingrid Santana RN Unavailable Unavailable Momo Forbes Primary Care Provider Joseph Quintana MD Unavailable Encounter Details Date Type Department Care Team Description 07/17/2014 External Order Results The Transplant Ce nter Nurse, [facility] 2nd Floor, Clinic [address]A [address] [phone] Social History Tobacco Use Types Packs/Day Years [...] 8:28 AM Results f or this RESULTS STEWARD DISHWASHER procedure are i n the results section. documented in this encounter Results (ABNORMAL) TXP External Lab Result (07/15/2014 8:28 AM STEWARD DISHWASHER) Analysis Performed At Patho logist Time Signature [...] / / Volume Laterality 07/15/2014 8:28 AM STEWARD DISHWASHER Narrative ZACHERYEZE PFT - 07/17/2014 8:35 AM STEWARD DISHWASHER Verified by Maribel Plunkett on 07/17/20 14. Patient Reported LABORATORY Performing Organization Address City/State/ZIP Code Phon e Number BREEZE PFT LABDE SCAN documented in this encounter Visit Diagnoses Not on filedocumented in this encounter Care Teams Gutter Mouth Cutter Relationship Specialty Start Date End Date Momo Forbes PCP - General Family Practice 01/02/14 [facility] [address] [place] [address] Ingrid Santana, RN Registered Nurse Transplant 02/10/12 Joseph Quintana, Assigned Nephrology 03/29/21 MD Provider [address] [place] [address] [address] [place] [address] documented as of this encounter
--- OUTSIDE RECORDS SUMMARY | 2022-05-28 11:21 | XMS_ITS | Encounter Summary ---
:1950 Author Organization [place] Address [address] [place] [address] Care Team Providers Name Role Phone Ingrid Santana RN Unavailable Unavailable Momo Forbes Primary Care Provider Reason for Visit Reason Onset Date Comments Medication Question 10/11/2014 Encounter Details Date Type Department Care Team Description 10/11/2014 Telephone PHARMACY Beny Staton RPH Medication Question 500 [facility] [place] [address] PHARMACY [phone] [place] [address] Social History Tobacco Use Types [...] Staton [facility] Specialty Pharmacist [phone] OMER PRICING MANAGER documented in this encounter Plan of Treatment Not on filedocumented as of this encounter Visit Diagnoses Not on filedocumented in this encounter Care Teams Environmental Associate Relationship Specialty Start Date End Date Momo Forbes PCP - General Family Practice 01/02/[address] [address] Ingrid Santana, RN Registered Nurse Transplant 02/10/12 documented as of this encounter
--- OUTSIDE RECORDS SUMMARY | 2022-05-28 11:21 | XMS_ITS | Encounter Summary ---
:1950 Author Organization [place] Address [facility] [place] [address] Care Team Providers Name Role Phone Ingrid Santana RN Unavailable Unavailable Momo Forbes Primary Care Provider Joseph Quintana MD Unavailable Encounter Details Date Type Department Care Team Description 07/31/2014 External Order Results The Transplant Ce nter Nurse, [facility] 2nd Floor, Clinic [address]A [address] [place] [phone] Social History Tobacco Use Types Packs/Day Years [...] 8:25 AM Results f or this RESULTS MANUFACTURED BUILDINGS SUPERVISOR procedure are i n the results section. documented in this encounter Results (ABNORMAL) TXP External Lab Result (07/29/2014 8:25 AM MANUFACTURED BUILDINGS SUPERVISOR) [facility] Method Time Signature Sodium (External) [...] / / Volume Laterality 07/29/2014 8:25 AM MANUFACTURED BUILDINGS SUPERVISOR Narrative BREEZE PFT - 07/31/2014 2:47 PM MANUFACTURED BUILDINGS SUPERVISOR Verified by Nazia Duncan on 07/31/2014. Verified by Freddy Mehta on 07/31. Patient Reported LABORATORY Performing Organization Address City/State/ZIP Code Phon e Number BREEZE PFT LABDE SCAN documented in this encounter Visit Diagnoses Not on filedocumented in this encounter Care Teams Director Of Nurses Registry Relationship Specialty Start Date End Date Momo Forbes PCP - General Family Practice 01/02/14 [facility] [address] [place] [address] Ingrid Santana, RN Registered Nurse Transplant 02/10/12 Joseph Quintana, Assigned Nephrology 03/29/21 MD Provider [address] [place] [address] [address] [place] [address] documented as of this encounter
--- OUTSIDE RECORDS SUMMARY | 2022-05-28 11:21 | XMS_ITS | Encounter Summary ---
:1950 Author Organization [place] Address [address] [place] [address] Care Team Providers Name Role Phone Ingrid Santana RN Unavailable Unavailable Momo Forbes Primary Care Provider Encounter Details Date Type Department Care Team Description 10/20/2014 Orders Only [facility] Spong, Joseph Conor isael, [facility] 500 [facility] [address] [place] [address] [phone] [place] [address] 972 [place] [address] (Wo rk) Social History Tobacco [...] Results Tacrolimus level (11/05/2014 8:29 AM CDT) [facility] Method Time Signature Tacrolimus Last 2029, [facility] Dose 11/04/[address] [facility] Tacrolimus 7.7 5.0 - [facility] Level 15.0 ug/L [facility] Comment: Tacrolimus Reference [...] Code Phon e Number [facility] [address] documented in this encounter Visit Diagnoses Not on filedocumented in this encounter Care Teams Beet Flumer Relationship Specialty Start Date End Date Momo Forbes PCP - General Family Practice 01/02/14 [facility] [address] [place] [address] Ingrid Santana, RN Registered Nurse Transplant 02/10/12 documented as of this encounter
--- OUTSIDE RECORDS SUMMARY | 2022-05-28 11:21 | XMS_ITS | Encounter Summary ---
:1950 Author Organization [place] Address [facility] [place] [address] Care Team Providers Name Role Phone Ingrid Santana RN Unavailable Unavailable Momo Forbes Primary Care Provider Joseph Quintana MD Unavailable Encounter Details Date Type Department Care Team Description 07/25/2014 External Order Results The Transplant Ce nter Nurse, [facility] 2nd Floor, Clinic [address]A [address] [phone] Social History Tobacco Use Types Packs/Day Years [...] 8:22 AM Results f or this RESULTS ROLLING MACHINE OPERATOR AUTOMATIC procedure are i n the results section. documented in this encounter Results (ABNORMAL) TXP External Lab Result (07/22/2014 8:22 AM ROLLING MACHINE OPERATOR AUTOMATIC) Analysis Performed At Patho logist Time Signature [...] 52 (L) >60 LABDE SCAN (if ml/min/1.7 Bhutanese) 3m2 (External) GFR Estimated 43 (L) >60 [...] / / Volume Laterality 07/22/2014 8:22 AM ROLLING MACHINE OPERATOR AUTOMATIC Narrative MARLENEE PFT - 07/25/2014 6:19 AM ROLLING MACHINE OPERATOR AUTOMATIC Verified by Janee Alexis on 07/25/2014 . Patient Reported LABORATORY Performing Organization Address City/State/ZIP Code Phon e Number BREEZE PFT LABDE SCAN documented in this encounter Visit Diagnoses Not on filedocumented in this encounter Care Teams Medical Editor Relationship Specialty Start Date End Date Momo Forbes PCP - General Family Practice 01/02/14 [facility] [address] [place] [address] Ingrid Santana, RN Registered Nurse Transplant 02/10/12 Joseph Quintana, Assigned Nephrology 03/29/21 MD Provider [address] [place] [address] [address] [place] [address] documented as of this encounter
--- OUTSIDE RECORDS SUMMARY | 2022-05-28 11:21 | XMS_ITS | Encounter Summary ---
:1950 Author Organization [place] Address [address] [place] [address] Care Team Providers Name Role Phone Ingrid Santana RN Unavailable Unavailable Momo Forbes Primary Care Provider Encounter Details Date Type Department Care Team Description 06/22/2014 Orders Only [facility] Spong, Joseph Conor isael, [facility] 500 [facility] [address] [place] [address] [phone] [place] [address] 895 [place] [address] (Wo rk) Social History Tobacco [...] AM R esults for this MASS SPECTROMETRY DAIRY FEED MIXING OPERATOR procedure are in the results section. TACROLIMUS BY TANDEM Routine 07/08/2014 8:15 AM R esults for this MASS SPECTROMETRY DAIRY FEED MIXING OPERATOR procedure are in the results section. TACROLIMUS BY TANDEM Routine 07/01/2014 8:25 AM R esults for this MASS SPECTROMETRY DAIRY FEED MIXING OPERATOR procedure are in the results section. TACROLIMUS BY TANDEM Routine 06/24/2014 8:30 AM R esults for this MASS SPECTROMETRY DAIRY FEED MIXING OPERATOR procedure are in the results section. documented in this encounter Results Tacrolimus level (07/15/2014 8:25 AM DAIRY FEED MIXING OPERATOR) [facility] Method Time Signature Tacrolimus Last 07/14/14 [facility] Dose 2000 [facility] Tacrolimus 8.1 5.0 - [facility] Level 15.0 ug/L [place] [...] / Volume Laterality 07/15/2014 8:25 AM 4 DAIRY FEED MIXING OPERATOR 10:56 AM DAIRY FEED MIXING OPERATOR Deysi Alicea MD LAB - BLOOD ORDERABLES Performing Organization Address City/State/ZIP Code Phon e Number [facility] [address] [place], [place] [phone] [place] [address] [facility] Tacrolimus level (07/08/2014 8:15 AM DAIRY FEED MIXING OPERATOR) [facility] gist Method Time Signature Tacrolimus Last 1999 [facility] Dose 07/07/14 [facility] Tacrolimus 8.6 5.0 - [facility] Level 15.0 ug/L [place] [...] / Volume Laterality 07/08/2014 8:15 AM 4 DAIRY FEED MIXING OPERATOR 11:03 AM DAIRY FEED MIXING OPERATOR Deysi Alicea MD LAB - BLOOD ORDERABLES Performing Organization Address City/State/ZIP Code Phon e Number [facility] [address] [place], [place] [phone] [place] [address] [facility] Tacrolimus level (07/01/2014 8:25 AM DAIRY FEED MIXING OPERATOR) [facility] gist Method Time Signature Tacrolimus Last 1999, [facility] Dose 06/30/14 [facility] Tacrolimus 9.3 5.0 - [facility] Level 15.0 ug/L [place] [...] / Volume Laterality 07/01/2014 8:25 AM 4 DAIRY FEED MIXING OPERATOR 12:11 PM DAIRY FEED MIXING OPERATOR Mingo Dangelo MD LAB - BLOOD ORDERABLES Performing Organization Address City/State/ZIP Code Phon e Number [facility] [address] [place] [address] [facility] Tacrolimus level (06/24/2014 8:30 AM DAIRY FEED MIXING OPERATOR) [facility] gist Method Time Signature Tacrolimus Last 1999 [facility] Dose 06/23/14 [facility] Tacrolimus 10.5 5.0 - [facility] Level 15.0 ug/L [place] [...] / Volume Laterality 06/24/2014 8:30 AM 4 DAIRY FEED MIXING OPERATOR 11:18 AM DAIRY FEED MIXING OPERATOR Deysi Alicea MD LAB - BLOOD ORDERABLES Performing Organization Address City/State/ZIP Code Phon e Number [facility] [address] [place] [address] [facility] documented in this encounter Visit Diagnoses Not on filedocumented in this encounter Care Teams Nuclear Medicine Officer Relationship Specialty Start Date End Date Momo Forbes PCP - General Family Practice 01/02/14 [facility] [address] [place] [address] Ingrid Santana, RN Registered Nurse Transplant 02/10/12 documented as of this encounter
--- OUTSIDE RECORDS SUMMARY | 2022-05-28 11:21 | XMS_ITS | Encounter Summary ---
:1950 Author Organization [place] Address [facility] [place] [address] Care Team Providers Name Role Phone Ingrid Santana RN Unavailable Unavailable Momo Forbes Primary Care Provider Joseph Quintana MD Unavailable Encounter Details Date Type Department Care Team Description 11/07/2014 External Order Results The Transplant Ce nter Nurse, [facility] 2nd Floor, Clinic [address]A [address] [phone] Social History Tobacco Use Types Packs/Day Years [...] (if ml/min/1.7 Mauritian) 3m2 (External) GFR Estimated 51 (L) >60 [...] this encounter Care Teams Oil And Gas Well Treatment Operator Relationship Specialty Start Date End Date Momo Forbes PCP - General Family Practice 01/02/14 [facility] [address] [place] [address] Ingrid Santana, RN Registered Nurse Transplant 02/10/12 Joseph Quintana, Assigned Nephrology 03/29/21 MD Provider [address] [place] [address] 1932 [place], [place] [phone] documented as of this encounter
--- OUTSIDE RECORDS SUMMARY | 2022-05-28 11:21 | XMS_ITS | Encounter Summary ---
:1950 Author Organization [place] Address [facility]0 [facility] [place] [address] Care Team Providers Name Role Phone Ingrid Santana RN Unavailable Unavailable Momo Forbes Primary Care Provider Encounter Details Date Type Department Care Team Description 10/04/2014 External Order Results The Transplant Ce ntjakob Nurse, [facility] 2nd Floor, Clinic [address]A [address] [place] [address] Social History Tobacco Use Types [...] 8:33 AM Results f or this RESULTS CHICKEN HATCHERY HELPER procedure are i n the results section. documented in this encounter Results (ABNORMAL) TXP External Lab Result (10/03/2014 8:33 AM CHICKEN HATCHERY HELPER) Analysis Performed At Patho logist Time [...] 57 (L) >60 LABDE SCAN (if ml/min/1.7 Romanian) 3m2 (External) GFR Estimated 47 (L) >60 [...] / / Volume Laterality 10/03/2014 8:33 AM CHICKEN HATCHERY HELPER Narrative ZACHERYEZE PFT - 10/04/2014 8:51 AM CHICKEN HATCHERY HELPER Verified by Josseline Palma on 5. Patient Reported LABORATORY Performing Organization Address City/State/ZIP Code Phon e Number BREEZE PFT LABDE SCAN documented in this encounter Visit Diagnoses Not on filedocumented in this encounter Care Teams Manager Talent Acquisition Relationship Specialty Start Date End Date Momo Forbes PCP - General Family Practice 01/02/14 [facility] [address] [place] [address] Ingrid Santana, RN Registered Nurse Transplant 02/10/12 documented as of this encounter
--- OUTSIDE RECORDS SUMMARY | 2022-05-28 11:21 | XMS_ITS | Encounter Summary ---
:1950 Author Organization [place] Address [address] [place] [address] Care Team Providers Name Role Phone Ingrid Santana RN Unavailable Unavailable Momo Forbes Primary Care Provider Encounter Details Date Type Department Care Team Description 07/22/2014 Orders Only [facility] Spong, Joseph Conor isael, [facility] 500 [facility] [address] [place] [address] [phone] [place] [address] 528 [place] [address] (Wo rk) Social History Tobacco [...] AM Resul ts for this SINGLE ANTIGEN HAZARDOUS WASTE REMOVER procedure are in the results section. HLA LUKASZ CLASS I Routine 07/29/2014 8:20 AM Result s for this SINGLE ANTIGEN HAZARDOUS WASTE REMOVER procedure are in the results section. TACROLIMUS BY TANDEM Routine 07/29/2014 8:20 AM R esults for this MASS SPECTROMETRY HAZARDOUS WASTE REMOVER procedure are in the results section. TACROLIMUS BY TANDEM Routine 07/22/2014 8:20 AM R esults for this MASS SPECTROMETRY HAZARDOUS WASTE REMOVER procedure are in the results section. documented in this encounter Results HLA Lukasz Class II Single Antigen (07/29/2014 8:20 AM HAZARDOUS WASTE REMOVER) [facility] Method Time Signature SA2 Test SA [...] Volume Laterality 07/29/2014 8:20 AM 4 3:26 HAZARDOUS WASTE REMOVER PM HAZARDOUS WASTE REMOVER Deysi Alicea MD LAB - IMMUNOLOGY ORDERABLES Performing Organization Address City/State/ZIP Code Phon e Number [facility] Immunology/Histocompatabil [place], [place] [address] [facility] [address], Room 3-580 HISTOTRAC HLA Lukasz Class I Single Antigen (07/29/2014 8:20 AM HAZARDOUS WASTE REMOVER) [facility] Method Time Signature SA1 Test SA [...] Volume Laterality 07/29/2014 8:20 AM 4 3:26 HAZARDOUS WASTE REMOVER PM HAZARDOUS WASTE REMOVER Deysi Alicea MD LAB - IMMUNOLOGY ORDERABLES Performing Organization Address City/State/ZIP Code Phon e Number [facility] Immunology/Histocompatabil [place], [place] [address] [facility] [address] Building, Room 3-580 HISTOTRAC Tacrolimus level (07/29/2014 8:20 AM HAZARDOUS WASTE REMOVER) [facility] gist Method Time Signature Tacrolimus Last 1999 [facility] Dose 07/28/14 [facility] Tacrolimus 10.5 5.0 - [facility] Level 15.0 ug/L [facility] Comment: Tacrolimus Reference [place] Kidney Transplant [...] / Volume Laterality 07/29/2014 8:20 AM 4 HAZARDOUS WASTE REMOVER 11:17 AM HAZARDOUS WASTE REMOVER Deysi Alicea MD LAB - BLOOD ORDERABLES Performing Organization Address City/State/ZIP Code Phon e Number [facility] [address] [place] [address] [facility] Tacrolimus level (07/22/2014 8:20 AM HAZARDOUS WASTE REMOVER) [facility] Method Time Signature Tacrolimus Last 1929 [facility] Dose 07/21/14 [facility] Tacrolimus 10.8 5.0 - [facility] Level 15.0 ug/L [facility] Comment: Tacrolimus Reference [place] Kidney Transplant [...] / Volume Laterality 07/22/2014 8:20 AM 4 HAZARDOUS WASTE REMOVER 11:45 AM HAZARDOUS WASTE REMOVER Deysi Alicea MD LAB - BLOOD ORDERABLES Performing Organization Address City/State/ZIP Code Phon e Number [facility] [address] [place], [place] [phone] [place] [address] LABS documented in this encounter Visit Diagnoses Not on filedocumented in this encounter Care Teams Dobby Loom Weaver Relationship Specialty Start Date End Date Momo Forbes PCP - General Family Practice 01/02/14 [facility] [address] [place] [address] Ingrid Santana, RN Registered Nurse Transplant 02/10/12 documented as of this encounter
--- OUTSIDE RECORDS SUMMARY | 2022-05-28 11:21 | XMS_ITS | Encounter Summary ---
:1950 Author Organization [place] Address [facility] [place] [address] Care Team Providers Name Role Phone Ingrid Santana RN Unavailable Unavailable Momo Forbes Primary Care Provider Encounter Details Date Type Department Care Team Description 10/18/2014 External Order Results The Transplant Ce ntjakob Nurse, [facility] 2nd Floor, Clinic [address]A [address] [place] [address] Social History Tobacco Use Types [...] 8:15 AM Results f or this RESULTS FORGE HEATER procedure are i n the results section. documented in this encounter Results (ABNORMAL) TXP External Lab Result (10/17/2014 8:15 AM FORGE HEATER) Analysis Performed At Patho logist Time Signature [...] Citizen Of [place]) 3m2 (External) GFR Estimated 46 (L) >60 [...] / / Volume Laterality 10/17/2014 8:15 AM FORGE HEATER Narrative JESSICA PFT - 10/18/2014 8:50 AM FORGE HEATER Verified by Maribel Plunkett on 10/18/19 15. Patient Reported LABORATORY Performing Organization Address City/State/ZIP Code Phon e Number BREEZE PFT LABDE SCAN documented in this encounter Visit Diagnoses Not on filedocumented in this encounter Care Teams Mechanical Planner Relationship Specialty Start Date End Date Forbes, Ton PCP - General Family Practice 01/02/14 [facility] [address] [place] [id number] Ingrid Santana, RN Registered Nurse Transplant 02/10/12 documented as of this encounter
--- OUTSIDE RECORDS SUMMARY | 2022-05-28 11:21 | XMS_ITS | Encounter Summary ---
:1950 Author Organization [place] Address [facility] [place] [address] Care Team Providers Name Role Phone Ingrid Santana RN Unavailable Unavailable Momo Forbes Primary Care Provider Joseph Quintana MD Unavailable Encounter Details Date Type Department Care Team Description 08/06/2014 External Order Results The Transplant Ce nter Nurse, [facility] 2nd Floor, Clinic [address]A [address] [phone] Social History Tobacco Use Types Packs/Day Years [...] 8:39 AM Results f or this RESULTS MEDICAL RECEPTION SPECIALIST procedure are i n the results section. documented in this encounter Results (ABNORMAL) TXP External Lab Result (08/05/2014 8:39 AM MEDICAL RECEPTION SPECIALIST) Analysis Performed At Patho logist Time [...] 55 (L) >60 LABDE SCAN (if ml/min/1.7 Fijian) 3m2 (External) GFR Estimated 45 (L) >60 [...] / / Volume Laterality 08/05/2014 8:39 AM MEDICAL RECEPTION SPECIALIST Narrative JESSICA PFT - 08/06/2014 7:40 AM MEDICAL RECEPTION SPECIALIST Verified by Mary Whitehead on 08/06/2014. Patient Reported LABORATORY Performing Organization Address City/State/ZIP Code Phon e Number BREEZE PFT LABDE SCAN documented in this encounter Visit Diagnoses Not on filedocumented in this encounter Care Teams Humane Officer Relationship Specialty Start Date End Date Momo Forbes PCP - General Family Practice 01/02/14 [facility] [address] [place] [address] Ingrid Santana, RN Registered Nurse Transplant 02/10/12 Joseph Quintana, Assigned Nephrology 03/29/21 MD Provider [address] [place] [address] 1932 [place] [address] documented as of this encounter
--- OUTSIDE RECORDS SUMMARY | 2022-05-28 11:21 | XMS_ITS | Encounter Summary ---
:1950 Author Organization [place] Address [facility]0 [facility] [place] [address] Care Team Providers Name Role Phone Ingrid Santana RN Unavailable Unavailable Momo Forbes Primary Care Provider Encounter Details Date Type Department Care Team Description 12/30/2014 Orders Only The Transplant Shiva Arias RN -donor kidney 2nd Floor, Clinic 2A [facility] transplant recipient Tommy Guillermoteen [address] [facility] (Primary Dx) Building [address] [place] [address] [place] [phone] Social History Tobacco Use [...] transplant documented in this encounter Care Teams Fell Cutter Relationship Specialty Start Date End Date Momo Forbes PCP - General Family Practice 01/02/[address] [address] Ingrid Santana, RN Registered Nurse Transplant 02/10/12 documented as of this encounter
--- OUTSIDE RECORDS SUMMARY | 2022-05-28 11:21 | XMS_ITS | Encounter Summary ---
:1950 Author Organization [place] Address [facility] [place] [address] Care Team Providers Name Role Phone Ingrid Santana RN Unavailable Unavailable Momo Forbes Primary Care Provider Reason for Visit Reason Onset Date Comments Medication Question 07/26/2014 Encounter Details Date Type Department Care Team Description 07/26/2014 Telephone PHARMACY Duncan, Fina, H Medication Question 500 [facility] [place] [address] 7[address] [facility] [phone] [place] [address] Social History Tobacco Use Types [...] and happy Beny Staton [facility] Specialty Pharmacist [phone] ARD/STEWARDESS WINE documented in this encounter Plan of Treatment Not on filedocumented as of this encounter Visit Diagnoses Not on filedocumented in this encounter Care Teams Jewel Lathe Operator Relationship Specialty Start Date End Date Momo Forbes PCP - General Family Practice 01/02/14 [facility] [address] [place] [address] Ingrid Santana, RN Registered Nurse Transplant 02/10/12 documented as of this encounter
--- OUTSIDE RECORDS SUMMARY | 2022-05-28 11:21 | XMS_ITS | Encounter Summary ---
:1950 Author Organization [place] Address [facility] [place] [address] Care Team Providers Name Role Phone Ingrid Santana RN Unavailable Unavailable Momo Forbes Primary Care Provider Joseph Quintana MD Unavailable Encounter Details Date Type Department Care Team Description 07/10/2014 External Order Results The Transplant Ce nter Nurse, [facility] 2nd Floor, Clinic [address] [phone] Social History Tobacco Use Types Packs/Day Years [...] 8:17 AM Results f or this RESULTS LAMINATOR HAND procedure are i n the results section. documented in this encounter Results (ABNORMAL) TXP External Lab Result (07/08/2014 8:17 AM LAMINATOR HAND) Analysis Performed At Patho logist Time Signature [...] Estimated >60 >60 LABDE SCAN (if ml/min/1.7 Swiss) 3m2 (External) GFR Estimated 51 (L) >60 [...] / / Volume Laterality 07/08/2014 8:17 AM LAMINATOR HAND Narrative ZACHERYEZE PFT - 07/10/2014 6:20 AM LAMINATOR HAND Verified by Janee Alexis on 07/10/2014 . Patient Reported LABORATORY Performing Organization Address City/State/ZIP Code Phon e Number BREEZE PFT LABDE SCAN documented in this encounter Visit Diagnoses Not on filedocumented in this encounter Care Teams Supervisor Webbing Relationship Specialty Start Date End Date Momo Forbes PCP - General Family Practice 01/02/14 [facility] [address] [place] [address] Ingrid Santana, RN Registered Nurse Transplant 02/10/12 Joseph Quintana, Assigned Nephrology 03/29/21 MD Provider [address] [place] [place] [address] [address] [place] [address] documented as of this encounter
--- OUTSIDE RECORDS SUMMARY | 2022-05-28 11:21 | XMS_ITS | Encounter Summary ---
:1950 Author Organization [place] Address [facility] [place] [address] Care Team Providers Name Role Phone Ingrid Santana RN Unavailable Unavailable Momo Forbes Primary Care Provider Encounter Details Date Type Department Care Team Description 12/27/2014 External Order Results The Transplant Ce ntjakob Nurse, [facility] 2nd Floor, Clinic [address]A [address] [place] [phone] Social History Tobacco Use Types [...] External Lab Result (12/25/2014 9:48 AM CDT) [facility] Method Time Signature Sodium 138 135 - [...] 51 (L) >60 LABDE SCAN (if ml/min/1. Angolan) 73m2 (External) GFR Estimated 42 (L) >60 [...] filedocumented in this encounter Care Teams Ore Crusher Relationship Specialty Start Date End Date Momo Forbes PCP - General Family Practice 01/02/14 [place] [id number] Ingrid Santana, RN Registered Nurse Transplant 02/10/12 documented as of this encounter
--- OUTSIDE RECORDS SUMMARY | 2022-05-28 11:21 | XMS_ITS | Encounter Summary ---
:1950 Author Organization [place] Address [address] [place] [address] Care Team Providers Name Role Phone Ingrid Santana RN Unavailable Unavailable Momo Forbes Primary Care Provider Reason for Visit Reason Onset Date Comments Medication Question 09/12/2014 Encounter Details Date Type Department Care Team Description 09/12/2014 Telephone PHARMACY Beny Staton RPH Medication Question [address] [facility] [place] [address] PHARMACY [phone] [place] [address] Social History Tobacco Use Types [...] his dr told himhis bp was good. TS REPORTER documented in this encounter Plan of Treatment Not on filedocumented as of this encounter Visit Diagnoses Not on filedocumented in this encounter Care Teams Regional Sales Leader Relationship Specialty Start Date End Date Momo Forbes PCP - General Family Practice 01/02/14 [facility] [address] [place] [address] Ingrid Santana, RN Registered Nurse Transplant 02/10/12 documented as of this encounter
--- OUTSIDE RECORDS SUMMARY | 2022-05-28 11:21 | XMS_ITS | Encounter Summary ---
:1950 Author Organization [place] Address [facility] [address] Care Team Providers Name Role Phone Ingrid Santana RN Unavailable Unavailable Momo Forbes Primary Care Provider Joseph Quintana MD Unavailable Encounter Details Date Type Department Care Team Description 06/24/2014 External Order Results The Transplant Ce nter Nurse, [facility] 2nd Floor, Clinic [address]A [address] [phone] Social History Tobacco Use Types Packs/Day Years [...] 8:37 AM Results f or this RESULTS SOUND EFFECTS SUPERVISOR procedure are i n the results section. documented in this encounter Results (ABNORMAL) TXP External Lab Result (06/24/2014 8:37 AM SOUND EFFECTS SUPERVISOR) Analysis Performed At Patho logist Time [...] 54 (L) >60 LABDE SCAN (if ml/min/1.7 Albanian) 3m2 (External) GFR Estimated 44 (L) >60 [...] / / Volume Laterality 06/24/2014 8:37 AM SOUND EFFECTS SUPERVISOR Narrative JESSICA PFT - 06/24/2014 2:52 PM SOUND EFFECTS SUPERVISOR Verified by Sofie Verdin on 4. Patient Reported LABORATORY Performing Organization Address City/State/ZIP Code Phon e Number [facility] LABDE SCAN documented in this encounter Visit Diagnoses Not on filedocumented in this encounter Care Teams Healthcare Account Manager Relationship Specialty Start Date End Date Momo Forbes PCP - General Family Practice 01/02/14 [facility] [address] [place] [address] Ingrid Santana, RN Registered Nurse Transplant 02/10/12 Joseph Quintana, Assigned Nephrology 03/29/21 MD Provider [address] [place] [address] [address] [place] [address] documented as of this encounter
--- OUTSIDE RECORDS SUMMARY | 2022-05-28 11:21 | XMS_ITS | Encounter Summary ---
:1950 Author Organization [place] Address [facility] [place] [address] Care Team Providers Name Role Phone Ingrid Santana RN Unavailable Unavailable Momo Forbes Primary Care Provider Reason for Visit Reason Onset Date Comments Transplant 12/31/2014 Encounter Details Date Type Department Care Team Description 12/31/2014 Telephone [facility] Transplant [facility] [address] [place] [phone] Social History Tobacco Use Types Packs/Day [...] filedocumented in this encounter Care Teams Lime Vat Tender Relationship Specialty Start Date End Date Forbes, Ton PCP - General Family Practice 01/02/14 [facility] [address] [place] [address] Ingrid Santana, RN Registered Nurse Transplant 02/10/12 documented as of this encounter
--- OUTSIDE RECORDS SUMMARY | 2022-05-28 11:21 | XMS_ITS | Encounter Summary ---
:1950 Author Organization [place] Address [facility] [place] [address] Care Team Providers Name Role Phone Ingrid Santana RN Unavailable Unavailable Momo Forbes Primary Care Provider Joseph Quintana MD Unavailable Encounter Details Date Type Department Care Team Description 07/03/2014 External Order Results The Transplant Ce nter Nurse, [facility] 2nd Floor, Clinic [address]A [address] [phone] Social History Tobacco Use Types Packs/Day Years [...] 8:27 AM Results f or this RESULTS PVC LOADER procedure are i n the results section. documented in this encounter Results (ABNORMAL) TXP External Lab Result (07/01/2014 8:27 AM PVC LOADER) Analysis Performed At Patho logist Time [...] / / Volume Laterality 07/01/2014 8:27 AM PVC LOADER Narrative JESSICA PFT - 07/03/2014 2:18 PM PVC LOADER Verified by Xiomara Bello on 07/03/20 14. Patient Reported LABORATORY Performing Organization Address City/State/ZIP Code Phon e Number BREEZE PFT LABDE SCAN documented in this encounter Visit Diagnoses Not on filedocumented in this encounter Care Teams Services Program Manager Relationship Specialty Start Date End Date Momo Forbes PCP - General Family Practice 01/02/14 [facility] [address] [place] [address] Ingrid Santana, RN Registered Nurse Transplant 02/10/12 Joseph Quintana, Assigned Nephrology 03/29/21 MD Provider [address] [place] [address] [address] [place] [address] documented as of this encounter
--- OUTSIDE RECORDS SUMMARY | 2022-05-28 11:22 | XMS_ITS | Encounter Summary ---
:1950 Author Organization [place] Address [address] [place] [address]. [place] [address] Care Team Providers Name Role Phone Ingrid Santana RN Unavailable Unavailable Momo Forbes Primary Care Provider Reason for Visit Reason Onset Date Comments Refill Request 04/05/2014 Tamy Cabrera Encounter Details Date Type Department Care Team Description 04/05/2014 Refill The Transplant Migel Martinez, Refill Request 2nd Floor, Clinic 2A (Tommy Cabrera[address] antoprazole) Building [facility] 195 6 [facility] 88 [place] [phone] Social History Tobacco Use Types Packs/Day Years [...] Last Fill: 03/14/14 Qty: 30 [facility] [phone] documented in this encounter Plan of Treatment Not on filedocumented as of this encounter Visit Diagnoses Diagnosis S/P kidney transplant Kidney replaced by transplant Atrial fibrillation (H) Atrial fibrillation documented in this encounter Care Teams Factory Supervisor Relationship Specialty Start Date End Date Momo Forbes PCP - General Family Practice 01/02/14 [facility] [address] [place] [address] Ingrid Santana, RN Registered Nurse Transplant 02/10/12 documented as of this encounter
--- OUTSIDE RECORDS SUMMARY | 2022-05-28 11:22 | XMS_ITS | Encounter Summary ---
:1950 Author Organization [place] Address [address] [place] [address] Care Team Providers Name Role Phone Ingrid Santana RN Unavailable Unavailable Momo Forbes Primary Care Provider Reason for Visit Auth/Cert - Closed Specialty Diagnoses / Procedures Referred By Contact Refer red To Contact Surgery Diagnoses S/P Kidney Transplant Uu Periop Procedures COMBINED CYSTOSCOPY, REMOVE STENT(S) 500 [place] [address] Phone: Fax: Referral ID Status Reason Start Date Expiration Date Visits Requ ested Visits Authorized [id number] Closed 1 1 Encounter Details Date Type Department Care Team Description 04/01/2014 Hospital Encounter [facility] Migel Merchant, Same Day Surgery East [address] [facility] 195 [place] [address] [place] [address] (Wo rk) Social History Tobacco Use Types [...] Scott RN - 04/01/2014 10:15 AM CDT [facility] [place] Same-Day Surgery Adult Discharge Orders & Instructions [...] To contact a doctor, call or: ??? [phone] and ask for the resident instructional support services director for (answered 24 hours a day) ??? Emergency Department: [facility]: [phone] (TTY for hearing impaired: [phone]) documented in this encounter Medications at Time [...] Component Value Ref Test Analysis Performed At [facility] Range Method Time Signature Specimen Unspecified [facility] Urine CAMPUS LABS Special Specimen [facility] Requests received in MICROBIOLOGY preservative Culture Micro No growth [facility] MICROBIOLOGY Micro Report FINAL [facility] Status 04/02/2014 MICROBIOLOGY Specimen Anatomical Collection Method Collection Time Receive d Time (Source) Location / / Volume Laterality 04/01/2014 9:00 AM 4 9:18 CDT AM CDT Migel Merchant MD LAB - MICRO GENERAL ORDERABL ES Performing Organization Address City/State/ZIP Code Phon e Number [facility] [address] [place] [address] [facility] LABS [facility] MICROBIOLOGY (ABNORMAL) UA with Microscopic (04/01/2014 9:00 AM CDT) Component Value Ref Test Analysis Performed At [facility] Range Method Time Signature Color Urine Yellow [facility]S Appearance Urine Clear [facility] LABS Glucose Urine 30 (A) NEG [facility] mg/dL UNIVERSITY CAMP[facility] LABS Bilirubin Urine Negative NEG [facility] UNIVERSITY CAMP[facility] LABS Ketones Urine Negative NEG [facility] mg/dL UNIVERSITY CAMP[facility] LABS Specific [place] 1.017 1.003 - [facility] Urine 1.035 UNIVERSITY CAMPUS LABS Blood Urine Moderate (A) NEG [facility] pH Urine 6.0 5.0 - [facility] 7.0 pH UNIVERSITY CAMPUS LABS Protein Albumin 10 (A) NEG [facility] Urine mg/dL UNIVERSITY CAMP[facility] LABS Urobilinogen Normal 0.0 - [facility] mg/dL 2.0 UNIVERSITY mg/dL CAMPUS LABS Nitrite Urine Negative NEG [facility]ERSITY [facility] LABS Leukocyte Negative NEG [facility] Esterase Urine UNIVERSITY [place] LABS Source Unspecified [facility] Urine UNIVERSITY CAMPUS LABS WBC Urine 2 0 - 2 [facility] /HPF [place] [facility] LABS RBC Urine 30 (H) 0 - 2 [facility] /HPF UNIVERSITY CAMPUS LABS Squamous <1 0 - 1 [facility] Epithelial /HPF /HPF [place] Urine CAMPUS LABS Specimen Anatomical Collection Method Collection Time Receive d Time (Source) Location / / Volume Laterality 04/01/2014 9:00 AM 4 9:18 CDT AM CDT Migel Merchant MD LAB - URINE ORDERABLES Performing Organization Address City/State/ZIP Code Phon e Number [address] LABS (ABNORMAL) INR (04/01/2014 8:36 AM CDT) P athologist Signature INR 1.64 (H) 0.86 - 1.14 [facility] LABS Specimen Anatomical Collection Method Collection Time Receive d Time (Source) Location / / Volume Laterality Blood specimen 04/01/2014 8:36 AM 014 8:41 (specimen) CDT AM CDT Momo Jimenez MD LAB - BLOOD ORDERABLES Performing Organization Address City/State/ZIP Code Phon e Number [address] LABS EKG 12-lead, tracing only (04/01/2014 [...] athologist Signature Potassium 4.1 3.4 - 5.3 [facility] mmol/L CAMPUS LABS Specimen Anatomical Collection Method Collection Time Receive d Time (Source) Location / / Volume Laterality Blood specimen 04/01/2014 8:11 AM 014 8:27 (specimen) CDT AM CDT Momo Jimenez MD LAB - BLOOD ORDERABLES Performing Organization Address City/[facility]/ZIP Code Phon e Number [address] LABS (ABNORMAL) Hemoglobin (04/01/2014 8:11 AM CDT) athologist Signature Hemoglobin 10.2 (L) 13.3 - [facility] 17.7 g/dL CAMPUS LABS Specimen Anatomical Collection Method Collection Time Receive d Time (Source) Location / / Volume Laterality Blood specimen 04/01/2014 8:11 AM 014 8:27 (specimen) CDT AM CDT Momo Jimenez MD LAB - BLOOD ORDERABLES Performing Organization Address City/[facility]/ZIP Code Phon e Number [address] LABS (ABNORMAL) Glucose by meter (04/01/2014 [...] 0850 (Given - Provider: Addis Brannon APRN PATHOLOGY TEACHER - Comment: Asked by Fellow to give [...] documented in this encounter Care Teams Senior Qa Analyst Relationship Specialty Start Date End Date Momo Forbes PCP - General Family Practice 01/02/[address] [address] Ingrid Santana, RN Registered Nurse Transplant 02/10/12 documented as of this encounter
--- OUTSIDE RECORDS SUMMARY | 2022-05-28 11:22 | XMS_ITS | Encounter Summary ---
:1950 Author Organization [place] Address [facility] [place] [address] Care Team Providers Name Role Phone Ingrid Santana RN Unavailable Unavailable Momo Forbes Primary Care Provider Encounter Details Date Type Department Care Team Description 06/17/2014 External Order Results The Transplant Ce ntjakob Nurse, [facility] 2nd Floor, Clinic [address]A [address] [place] [address] Social History Tobacco Use Types [...] 57 (L) >60 LABDE SCAN (if ml/min/1.7 Afghan) 3m2 (External) GFR Estimated 47 (L) >60 [...] on filedocumented in this encounter Care Teams Canvas Cutter Relationship Specialty Start Date End Date Momo Forbes PCP - General Family Practice 01/02/14 [place] [phone] Ingrid Santana, RN Registered Nurse Transplant 02/10/12 documented as of this encounter
--- OUTSIDE RECORDS SUMMARY | 2022-05-28 11:22 | XMS_ITS | Encounter Summary ---
:1950 Author Organization [place] Address [facility] [address] Care Team Providers Name Role Phone Ingrid Santana RN Unavailable Unavailable Momo Forbes Primary Care Provider Joseph Quintana MD Unavailable Encounter Details Date Type Department Care Team Description 05/16/2014 External Order Results The Transplant Ce nter Nurse, [facility] 2nd Floor, Clinic [address]A [address] [phone] Social History Tobacco Use Types Packs/Day Years [...] Estimated >60 >60 LABDE SCAN (if ml/min/1.7 Omani) 3m2 (External) GFR Estimated 52 (L) >60 [...] filedocumented in this encounter Care Teams Remote Coders Relationship Specialty Start Date End Date Momo Forbes PCP - General Family Practice 01/02/14 [facility] [address] [place] [address] Ingrid Santana, RN Registered Nurse Transplant 02/10/12 Joseph Quintana, Assigned Nephrology 03/29/21 MD Provider [address] [place] [address] 1932 [place] [address] documented as of this encounter
--- OUTSIDE RECORDS SUMMARY | 2022-05-28 11:22 | XMS_ITS | Encounter Summary ---
:1950 Author Organization [place] Address [facility]0 [facility] [address] Care Team Providers Name Role Phone Ingrid Santana RN Unavailable Unavailable Momo Forbes Primary Care Provider Encounter Details Date Type Department Care Team Description 06/10/2014 External Order Results The Transplant Ce ntjakob Nurse, [facility] 2nd Floor, Clinic 2A [address] [place] [address] Social History Tobacco Use Types [...] on filedocumented in this encounter Care Teams Albacore Fishing Boat Crewman Relationship Specialty Start Date End Date Momo Forbes PCP - General Family Practice 01/02/14 [facility] [address] [place] [address] Ingrid Santana, RN Registered Nurse Transplant 02/10/12 documented as of this encounter
--- OUTSIDE RECORDS SUMMARY | 2022-05-28 11:22 | XMS_ITS | Encounter Summary ---
:1950 Author Organization [place] Address [address] [place] [address]. [place] [address] Care Team Providers Name Role Phone Ingrid Santana RN Unavailable Unavailable Momo Forbes Primary Care Provider Reason for Visit Reason Comments RECHECK s/p kidney tx Auth/Cert - Closed Specialty Diagnoses / Procedures Referred By Contact Refer red To Contact Surgery Diagnoses S/P Kidney Transplant Uu Periop Procedures COMBINED CYSTOSCOPY, REMOVE STENT(S) 500 [place] [address] Phone: Fax: Referral ID Status Reason Start Date Expiration Date Visits Requ ested Visits Authorized [id number] Closed 1 1 Encounter Details Date Type Department Care Team Description 04/01/2014 Office Visit Nephrology Deysi Alicea Immunosuppressed status (H) (Primary Dx); 2nd Floor, Clinic MD Aline High risk medication use; 2A [facility] Kidney replaced by homeroan t; Tommy [place] S/P kidney transplant [place] [address] [place] [address] [place], [place] (Work) [phone] Social History Tobacco Use Types Packs/Day Years [...] -no follow up, I will ask his medical front desk coordinator to obtain results from his local [...] at home regularly; BP checked by me xyr996/80; HE was previously on Metoprolol 12.5 mg [...] Years of Education: 14 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
--- OUTSIDE RECORDS SUMMARY | 2022-05-28 11:22 | XMS_ITS | Encounter Summary ---
:1950 Author Organization [place] Address [facility] [place] [address] Care Team Providers Name Role Phone Ingrid Santana RN Unavailable Unavailable Momo Forbes Primary Care Provider Reason for Visit Reason Onset Date Comments Anticoagulation 03/29/2014 Encounter Details Date Type Department Care Team Description 03/29/2014 Telephone [facility] Mary Sheffield RN Anticoagulation Anticoagulation Clin [place] [phone] Social History Tobacco Use Types Packs/Day [...] filedocumented in this encounter Care Teams Electric Fork Operator Relationship Specialty Start Date End Date Momo Forbes PCP - General Family Practice 01/02/14 [facility] [address] [place] [address] Ingrid Santana, RN Registered Nurse Transplant 02/10/12 documented as of this encounter
--- OUTSIDE RECORDS SUMMARY | 2022-05-28 11:22 | XMS_ITS | Encounter Summary ---
:1950 Author Organization [place] Address [address] [place] [address]. [place] [address] Care Team Providers Name Role Phone Ingrid Santana RN Unavailable Unavailable Momo Forbes Primary Care Provider Reason for Visit Reason Onset Date Comments Refill Request 04/26/2014 Encounter Details Date Type Department Care Team Description 04/26/2014 Refill Nephrology Shiva Kahn RN Refill Request 2nd Floor, Clinic 2A [facility] [place] [address] [facility]2 [place], [place] [phone] [place] [address] [place] [phone] Social History Tobacco Use Types Packs/Day [...] transplant documented in this encounter Care Teams Human Resource Advisor Relationship Specialty Start Date End Date Momo Forbes PCP - General Family Practice 01/02/14 [facility] [address] [place] [address] Ingrid Santana, RN Registered Nurse Transplant 02/10/12 documented as of this encounter
--- OUTSIDE RECORDS SUMMARY | 2022-05-28 11:22 | XMS_ITS | Encounter Summary ---
:1950 Author Organization [place] Address [facility]0 [facility] [place] [address] Care Team Providers Name Role Phone Ingrid Santana RN Unavailable Unavailable Momo Forbes Primary Care Provider Reason for Visit Reason Onset Date Comments Pre Visit Planning - Done 05/13/2014 6 week f/u pos t op afib. medication changes last visit. Encounter Details Date Type Department Care Team Description 05/13/2014 PRE VISIT [facility] [address] Pre Visit Planning - Physicians Orestes Hernandez MD Done (6 week f/u post [facility] op afib. medication Building [place] changes last visit. ) 4th Floor, Clinic 4B [id number] [place] [address] (Wo rk) [phone] [phone] Social History Tobacco Use Types Packs/Day Years [...] filedocumented in this encounter Care Teams Property Underwriter Relationship Specialty Start Date End Date Momo Forbes PCP - General Family Practice 01/02/14 [facility] [address] [place] [phone] Ingrid Santana, RN Registered Nurse Transplant 02/10/12 documented as of this encounter
--- OUTSIDE RECORDS SUMMARY | 2022-05-28 11:22 | XMS_ITS | Encounter Summary ---
:1950 Author Organization [place] Address [address] [place] [address] Care Team Providers Name Role Phone Ingrid Santana RN Unavailable Unavailable Momo Forbes Primary Care Provider Reason for Visit Auth/Cert - Closed Specialty Diagnoses / Procedures Referred By Contact Refer red To Contact Surgery Diagnoses S/P Kidney Transplant Uu Periop Procedures COMBINED CYSTOSCOPY, REMOVE STENT(S) 500 [place] [address] Phone: Fax: Referral ID Status Reason Start Date Expiration Date Visits Requ ested Visits Authorized [id number] Closed 1 1 Encounter Details Date Type Department Care Team Description 04/01/2014 Surgery [facility] Migel Merchant Romoval of Right Double PeriOp Services J Stent 500 [facility] 420 [place] [address] [place] [address] [place] [address] (Wo rk) Surgery Details Date/Time Status Location [...] Scott RN - 04/01/2014 10:15 AM CDT [facility], [place] Same-Day Surgery Adult Discharge Orders & Instructions [...] To contact a doctor, call or: ??? [phone] and ask for the resident client professional for (answered 24 hours a day) ??? Emergency Department: [facility]: [phone] (TTY for hearing impaired: [phone]) documented in this encounter Medications at Time [...] CDT 10:15 AM CDT Migel LARES - [facility] POCT Performing Organization Address City/State/ZIP Code Phon e Number FV POINT OF CARE TEST, GLUCOSE POINT OF CARE TEST, GLUCOSE Urine culture (04/01/2014 9:00 AM CDT) Component Value Ref Test Analysis Performed At [facility] gist Range Method Time Signature Specimen Unspecified [facility] Description Urine CAMPUS LABS Special Specimen [facility] Requests received in MICROBIOLOGY preservative Culture Micro No growth [facility] MICROBIOLOGY Micro Report FINAL [facility] Status 04/02/2014 MICROBIOLOGY Specimen Anatomical Collection Method Collection Time Receive d Time (Source) Location / / Volume Laterality 04/01/2014 9:00 AM 4 9:18 CDT AM CDT Migel Merchant MD LAB - MICRO GENERAL ORDERABL ES Performing Organization Address City/[facility]/ZIP Code Phon e Number [facility] [address] UNIVERSITY CAMPUS LABS [facility] MICROBIOLOGY (ABNORMAL) UA with Microscopic (04/01/2014 9:00 AM CDT) Component Value Ref Test Analysis Performed At Patholo gist Range Method Time Signature Color [facility]rine [facility] Appearance Urine Clear [facility] UNIVERSITY CAMPUS LABS Glucose Urine 30 (A) NEG [facility] mg/dL UNIVERSITY CAMPUS LABS Bilirubin Urine Negative NEG [facility] UNIVERSITY CAMPUS LABS Ketones Urine Negative NEG [facility] mg/dL UNIVERSITY CAMPUS LABS Specific [place] 1.017 1.003 - [facility] Urine 1.035 UNIVERSITY [...] Code Phon e Number [facility] [address] [facility] UNIVERSITY CAMPUS LABS (ABNORMAL) INR [...] Code Phon e Number [facility] [address] LABS EKG 12-lead, tracing only (04/01/2014 8:28 AM CDT) [facility] gist Method Time Signature Interpretation ECG Click View RADIOLOGY Image link RESULTS to view waveform and result Specimen (Source) Anatomical Collection Method Collection Time Re ceived Time Location / / Volume Laterality 04/01/2014 8:28 AM CDT Momo Jimenez MD ECG ORDERABLES Performing Organization Address City/State/ZIP Code Phon e Number RADIOLOGY RESULTS Potassium (04/01/2014 8:11 AM CDT) athologist [facility] Potassium 4.1 3.4 - 5.3 [facility] mmol/L CAMPUS LABS Specimen Anatomical Collection Method Collection Time Receive d Time (Source) Location / / Volume Laterality Blood specimen 04/01/2014 8:11 AM 014 8:27 (specimen) CDT AM CDT Momo Jimenez MD LAB - BLOOD ORDERABLES Performing Organization Address City/State/ZIP Code Phon e Number [facility] [address] LABS (ABNORMAL) Hemoglobin (04/01/2014 8:11 AM CDT) athologist [facility] Hemoglobin 10.2 (L) 13.3 - [facility] 17.7 g/dL CAMPUS LABS Specimen Anatomical Collection Method Collection Time Receive d Time (Source) Location / / Volume Laterality Blood specimen 04/01/2014 8:11 AM 014 8:27 (specimen) CDT AM CDT Momo Jimenez MD LAB - BLOOD ORDERABLES Performing Organization Address City/[facility]/ZIP Code Phon e Number [address] LABS (ABNORMAL) Glucose by meter (04/01/2014 8:02 AM CDT) athologist Signature Glucose 158 (H) 60 - 99 POINT OF CARE mg/dL TEST, GLUCOSE Specimen Anatomical Collection Method Collection Time Receive d Time (Source) Location / / Volume Laterality 04/01/2014 8:02 AM 4 8:05 CDT AM CDT Migel Merchant MD LAB - [facility] POCT [...] 0850 (Given - Provider: Addis Brannon APRN COMPRESSED AIR PILE DRIVER OPERATOR - Comment: Asked by Fellow to [...] Intra-procedure documented in this encounter Care Teams Certified Nurse Relationship Specialty Start Date End Date Momo Forbes PCP - General Family Practice 01/02/14 [facility] [address] [place] [address] Ingrid Santana, RN Registered Nurse Transplant 02/10/12 documented as of this encounter
--- OUTSIDE RECORDS SUMMARY | 2022-05-28 11:22 | XMS_ITS | Encounter Summary ---
:1950 Author Organization [place] Address [address] [place] [address]. [place] [address] Care Team Providers Name Role Phone Ingrid Santana RN Unavailable Unavailable Momo Forbes Primary Care Provider Encounter Details Date Type Department Care Team Description 05/20/2014 External Order Results The Transplant Ce ntjakob Nurse, [facility] 2nd Floor, Clinic [address] [place] [address] Social History Tobacco Use Types [...] 55 (L) >60 LABDE SCAN (if ml/min/1.7 Kitt[place]) 3m2 (External) GFR Estimated 46 (L) >60 [...] on filedocumented in this encounter Care Teams Carriage Feeder Relationship Specialty Start Date End Date Momo Forbes PCP - General Family Practice 01/02/14 [place] [id number] Ingrid Santana, RN Registered Nurse Transplant 02/10/12 documented as of this encounter
--- OUTSIDE RECORDS SUMMARY | 2022-05-28 11:22 | XMS_ITS | Encounter Summary ---
:1950 Author Organization [place] Address [facility] [place] [address] Care Team Providers Name Role Phone Ingrid Santana RN Unavailable Unavailable Momo Forbes Primary Care Provider Reason for Visit Reason Comments RECHECK 3 month Tx follow Up Encounter Details Date Type Department Care Team Description 05/13/2014 Office Visit Nephrology Deysi Alicea, DM (diabetes mellitus), type 2 (H) (Primary Dx); 2nd Floor, Clinic 2A MD S/P kidney transplant Tommy Wilburn [address] [phone] (Wo rk) [address] [phone] Social History Tobacco Use Types Packs/Day Years [...] discharged on Cumadin; Cumadin was stopped by station repairer during the follow up visit, as he [...] Years of Education: 14 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
--- OUTSIDE RECORDS SUMMARY | 2022-05-28 11:22 | XMS_ITS | Encounter Summary ---
:1950 Author Organization [place] Address [facility] [place] [address] Care Team Providers Name Role Phone Ingrid Santana RN Unavailable Unavailable Momo Forbes Primary Care Provider Reason for Visit Reason Comments Heart Problem 6 week F/U Encounter Details Date Type Department Care Team Description 05/14/2014 [facility] [place] [facility] Joseph Hernandez, shanon carey (Primary Heart MD Dx) [facility] Building [place] 4th Floor, Clinic 4B [address] [phone] [place], [place] (Work) [address] [phone] Social History Tobacco Use Types Packs/Day Years [...] questions or concerns. 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
--- OUTSIDE RECORDS SUMMARY | 2022-05-28 11:22 | XMS_ITS | Encounter Summary ---
:1950 Author Organization [place] Address [facility] [place] [address] Care Team Providers Name Role Phone Ingrid Santana RN Unavailable Unavailable Momo Forbes Primary Care Provider Joseph Quintana MD Unavailable Encounter Details Date Type Department Care Team Description 05/27/2014 External Order Results The Transplant Ce nter Nurse, [facility] 2nd Floor, Clinic [address] [phone] Social History Tobacco Use Types Packs/Day Years [...] Estimated >60 >60 LABDE SCAN (if ml/min/1.7 [place]) 3m2 (External) GFR Estimated 52 (L) >60 [...] on filedocumented in this encounter Care Teams Internet Ecommerce Specialist Relationship Specialty Start Date End Date Momo Forbes PCP - General Family Practice 01/02/14 [facility] [address] [place] [address] Ingrid Santana, RN Registered Nurse Transplant 02/10/12 Joseph Quintana, Assigned Nephrology 03/29/21 MD Provider [address] [place] [address] 1932 [place] [address] documented as of this encounter
--- OUTSIDE RECORDS SUMMARY | 2022-05-28 11:22 | XMS_ITS | Encounter Summary ---
:1950 Author Organization [place] Address [address] [place] [address] Care Team Providers Name Role Phone Ingrid Santana RN Unavailable Unavailable Momo Forbes Primary Care Provider Encounter Details Date Type Department Care Team Description 04/22/2014 Orders Only [facility] Spong, Joseph Conor isael, [facility] 500 [facility] [address] [place] [address] [phone] [place] [address] 853 [place] [address] (Wo rk) Social History [...] (ABNORMAL) Tacrolimus level (05/17/2014 8:17 AM CDT) [facility] Method Time Signature Tacrolimus Last 05/16/2014 [facility] Dose 2000 [facility] LABS Tacrolimus 4.4 (L) 5.0 - [facility] Level 15.0 ug/L [facility] LABS Comment: Tacrolimus Reference Range [...] Phon e Number [facility] 500 [place], [place] [phone] [place] [address] [facility] LABS (ABNORMAL) Tacrolimus level (05/15/2014 8:15 AM CDT) [facility] gist Method Time Signature Tacrolimus Last 05/14/14 [facility] Dose 2000 [facility] LABS Tacrolimus 4.6 (L) 5.0 - [facility] Level 15.0 ug/L [facility] LABS Comment: Tacrolimus Reference Range [...] Phon e Number [facility] 500 [place], [place] [phone] [place] [address] [facility] Tacrolimus level (05/10/2014 8:50 AM CDT) [facility] gist Method Time Signature Tacrolimus Not Provided [facility] Last Dose [facility] LABS Tacrolimus 14.3 5.0 - [facility] Level 15.0 ug/L [facility] LABS Comment: Tacrolimus Reference Range [...] Phon e Number [facility] 500 [place], [place] [phone] [place] [address] [facility] LABS (ABNORMAL) Tacrolimus level (05/07/2014 8:15 AM CDT) [facility] gist Method Time Signature Tacrolimus Last 05/06/14 [facility] Dose 2000 [facility] LABS Tacrolimus 15.9 (H) 5.0 - [facility] Level 15.0 ug/L [facility] LABS Comment: Tacrolimus Reference Range [...] Phon e Number [facility] 500 [place], [place] [phone] [place] [address] [facility] LABS Tacrolimus level (05/03/2014 8:13 AM CDT) [facility] gist Method Time Signature Tacrolimus Last [facility] Dose 2000 [facility] LABS Tacrolimus 8.8 5.0 - [facility] Level 15.0 ug/L [facility] LABS Comment: Tacrolimus Reference Range [...] Phon e Number [facility] [address] [facility]S Tacrolimus level (04/30/2014 8:20 AM CDT) [facility] gist Method Time Signature Tacrolimus Last 04/29/14 [facility] Dose 2000 [facility] LABS Tacrolimus 12.6 5.0 - [facility] Level 15.0 ug/L [facility] LABS Comment: Tacrolimus Reference Range [...] Phon e Number [facility] 500 [place] [address] [facility]S Tacrolimus level (04/26/2014 8:30 AM CDT) [facility] gist Method Time Signature Tacrolimus Last 04/25/14 [facility] Dose 1900 [facility] LABS Tacrolimus 10.1 5.0 - [facility] Level 15.0 ug/L [facility] LABS Comment: Tacrolimus Reference Range [...] Phon e Number [facility] 500 [place], [place] [phone] [place] [address] [facility] LABS Tacrolimus level (04/24/2014 9:00 AM CDT) [facility] gist Method Time Signature Tacrolimus Last 04/23/14 [facility] Dose 1900 [facility] LABS Tacrolimus 13.1 5.0 - [facility] Level 15.0 ug/L [facility] LABS Comment: Tacrolimus Reference Range [...] LAB - BLOOD ORDERABLES Performing Organization Address City/State/[facility] Code Phon e Number [facility] [address] LABS documented in this encounter Visit Diagnoses Not on filedocumented in this encounter Care Teams Summer Camp Counselor Relationship Specialty Start Date End Date Momo Forbes PCP - General Family Practice 01/02/14 [facility] [address] [place] [address] Ingrid Santana, RN Registered Nurse Transplant 02/10/12 documented as of this encounter
--- OUTSIDE RECORDS SUMMARY | 2022-05-28 11:22 | XMS_ITS | Encounter Summary ---
:1950 Author Organization [place] Address [address] [place] [address]. [place] [address] Care Team Providers Name Role Phone Ingrid Santana RN Unavailable Unavailable Momo Forbes Primary Care Provider Encounter Details Date Type Department Care Team Description 05/10/2014 Orders Only Nephrology Shiva Kahn RN -donor kidney 2nd Floor, Clinic 2A [facility] transplant recipient Tommy Ruizfelisa [address] [place] [address] (Primary Dx) Building [address] [place] [phone] Social History Tobacco Use Types Packs/Day Years [...] transplant documented in this encounter Care Teams Crew Foreman Relationship Specialty Start Date End Date Momo Forbes PCP - General Family Practice 01/02/14 [facility] [address] [place] [address] Ingrid Santana, RN Registered Nurse Transplant 02/10/12 documented as of this encounter
--- OUTSIDE RECORDS SUMMARY | 2022-05-28 11:22 | XMS_ITS | Encounter Summary ---
:1950 Author Organization [place] Address [address] [place] [address]. [place] [address] Care Team Providers Name Role Phone Ingrid Santana RN Unavailable Unavailable Momo Forbes Primary Care Provider Encounter Details Date Type Department Care Team Description 05/17/2014 Orders Only Nephrology Shiva Kahn RN -donor kidney 2nd Floor, Clinic 2A [facility] transplant recipient Tommy Ruizfelisa [address] [place] [address] (Primary Dx) Building [address] [place] [phone] Social History Tobacco Use Types Packs/Day Years [...] documented in this encounter Care Teams Director Report Relationship Specialty Start Date End Date Momo Forbes PCP - General Family Practice 01/02/14 [facility] 1999 [place] [address] Ingrid Santana, RN Registered Nurse Transplant 02/10/12 documented as of this encounter
--- OUTSIDE RECORDS SUMMARY | 2022-05-28 11:22 | XMS_ITS | Encounter Summary ---
:1950 Author Organization [place] Address [address] [facility] [place] [address] Care Team Providers Name Role Phone Ingrid Santana RN Unavailable Unavailable Momo Forbes Primary Care Provider Reason for Visit Auth/Cert - Closed Specialty Diagnoses / Procedures Referred By Contact Refer red To Contact Surgery Diagnoses S/P Kidney Transplant Uu Periop Procedures COMBINED CYSTOSCOPY, REMOVE STENT(S) 500 [place] [address] Phone: Fax: Referral ID Status Reason Start Date Expiration Date Visits Requ ested Visits Authorized [id number] Closed 1 1 Encounter Details Date Type Department Care Team Description 04/01/2014 Anesthesia Event [facility] Clari Torres MD PeriOp Services [facility] ANESTHESIA 500 [place] [address] [place] [address] [place], [place] [address] (Wo rk) Anesthesia Record Procedure Summary Procedure [...] benefits and alternatives discussed with: patient or auto service representative. I agree with the plan written [...] Intra-op documented in this encounter Care Teams Customer Support Analyst Relationship Specialty Start Date End Date Momo Forbes PCP - General Family Practice 01/02/14 [place] [phone] Ingrid Santana, RN Registered Nurse Transplant 02/10/12 documented as of this encounter
--- OUTSIDE RECORDS SUMMARY | 2022-05-28 11:22 | XMS_ITS | Encounter Summary ---
:1950 Author Organization [place] Address [address] [place] [address]. [place] [address] Care Team Providers Name Role Phone Ingrid Santana RN Unavailable Unavailable Momo Forbes Primary Care Provider Encounter Details Date Type Department Care Team Description 04/04/2014 Orders Only Nephrology Shiva Kahn RN S/P kidney transplant 2nd Floor, Clinic 2A [facility] [place] [address] [place] [address] [place] [phone] Social History Tobacco Use Types Packs/Day Years [...] transplant documented in this encounter Care Teams Log Hauler Relationship Specialty Start Date End Date Momo Forbes PCP - General Family Practice 01/02/14 [facility] 2000 [place] [address] Siers, Ingrid A, RN Registered Nurse Transplant 02/10/12 documented as of this encounter
--- OUTSIDE RECORDS SUMMARY | 2022-05-28 11:22 | XMS_ITS | Encounter Summary ---
:1950 Author Organization [place] Address [facility] [place] [address] Care Team Providers Name Role Phone Ingrid Santana RN Unavailable Unavailable Momo Forbes Primary Care Provider Reason for Visit Reason Onset Date Comments Patient Reminder 05/09/2014 Encounter Details Date Type Department Care Team Description 05/09/2014 Telephone Nephrology Yesenia Clements CMA Patient Reminder 2nd Floor, Clinic 2A [place] [phone] Social History Tobacco Use Types Packs/Day [...] on filedocumented in this encounter Care Teams Administration Dean Relationship Specialty Start Date End Date Momo Forbes PCP - General Family Practice 01/02/14 [facility] 1999 [place] [id number] Ingrid Santana, RN Registered Nurse Transplant 02/10/12 documented as of this encounter
--- OUTSIDE RECORDS SUMMARY | 2022-05-28 11:22 | XMS_ITS | Encounter Summary ---
:1950 Author Organization [place] Address [address] [place] [address]. [place] [address] Care Team Providers Name Role Phone Ingrid Santana RN Unavailable Unavailable Momo Forbes Primary Care Provider Encounter Details Date Type Department Care Team Description 05/02/2014 Orders Only Nephrology Shiva Kahn RN -donor kidney 2nd Floor, Clinic 2A [facility] transplant recipient Tommy Ruizteen [address] [place] [address] [place] [phone] Social History Tobacco Use Types Packs/Day Years [...] transplant documented in this encounter Care Teams Control Systems Specialist Relationship Specialty Start Date End Date Momo Forbes PCP - General Family Practice 01/02/14 [facility] [address] [place] [address] Ingrid Santana, RN Registered Nurse Transplant 02/10/12 documented as of this encounter
--- OUTSIDE RECORDS SUMMARY | 2022-05-28 11:22 | XMS_ITS | Encounter Summary ---
:1950 Author Organization [place] Address [address] [place] [address]. [place] [address] Care Team Providers Name Role Phone Ingrid Santana RN Unavailable Unavailable Momo Forbes Primary Care Provider Encounter Details Date Type Department Care Team Description 06/07/2014 External Order Results The Transplant Ce ntjakob Nurse, [facility] 2nd Floor, Clinic [address]A [address] [place] [address] Social History Tobacco Use Types [...] External Lab Result (06/05/2014 8:30 AM CDT) [facility] Method Time Signature Sodium (External) 138 [...] filedocumented in this encounter Care Teams Corporate Webmaster Relationship Specialty Start Date End Date Momo Forbes PCP - General Family Practice 01/02/14 [facility] [address] [place] [address] Ingrid Santana, RN Registered Nurse Transplant 02/10/12 documented as of this encounter
--- OUTSIDE RECORDS SUMMARY | 2022-05-28 11:22 | XMS_ITS | Encounter Summary ---
:1950 Author Organization [place] Address [facility] [address] Care Team Providers Name Role Phone Ingrid Santana RN Unavailable Unavailable Momo Forbes Primary Care Provider Reason for Visit Reason Onset Date Comments Pre Visit Planning - Done 04/08/2014 2 m f/u Post o p AFIB s/p DCCV. on warfarin 4 weeks Encounter Details Date Type Department Care Team Description 04/08/2014 PRE VISIT [facility] [address] Pre Visit Planning - Physicians Heart MD David Done (2 m f/u Post op [facility] AF IB s/p DCCV. on [facility] warfarin 4 weeks) 4th Floor, Clinic 4B [phone] [place] [address] (Wo rk) [address] [phone] Social History Tobacco Use Types Packs/Day Years [...] on filedocumented in this encounter Care Teams Bumper Machine Operator Relationship Specialty Start Date End Date Momo Forbes PCP - General Family Practice 01/02/14 [facility] [address] [place] [phone] Ingrid Santana, RN Registered Nurse Transplant 02/10/12 documented as of this encounter
--- OUTSIDE RECORDS SUMMARY | 2022-05-28 11:22 | XMS_ITS | Encounter Summary ---
:1950 Author Organization [place] Address [address] [place] [address]. [place] [address] Care Team Providers Name Role Phone Ingrid Santana RN Unavailable Unavailable Momo Forbes Primary Care Provider Encounter Details Date Type Department Care Team Description 05/27/2014 Orders Only Nephrology Shiva Kahn RN -donor kidney 2nd Floor, Clinic 2A [facility] transplant recipient Tommy Ruizteen [address] [place] [address] [place] [phone] Social History Tobacco Use Types Packs/Day Years [...] transplant documented in this encounter Care Teams Radiation Therapist Relationship Specialty Start Date End Date Momo Forbes PCP - General Family Practice 01/02/14 [facility] 1999 [place] [address] Ingrid Santana, RN Registered Nurse Transplant 02/10/12 documented as of this encounter
--- OUTSIDE RECORDS SUMMARY | 2022-05-28 11:22 | XMS_ITS | Encounter Summary ---
:1950 Author Organization [employer] Address Critical access hospital0 [facility] [place] [address] Care Team Providers Name Role Phone Ingrid Santana RN Unavailable Unavailable Momo Forbes Primary Care Provider Reason for Visit Reason Onset Date Comments Anticoagulation 04/01/2014 Encounter Details Date Type Department Care Team Description 04/01/2014 Telephone [facility] Joseph Levine , Anticoagulation Anticoagulation Clin ic [facility] [address] [place], [place] [phone] [facility] [phone] [place] [address] 812 [place], [place] [address] (Wo rk) Social History Tobacco Use Types [...] Notes Telephone Encounter - Joseph Levine, [facility] - 04/01/2014 5:22 PM CDT [...] filedocumented in this encounter Care Teams Data Entry Assistant Relationship Specialty Start Date End Date Momo Forbes PCP - General Family Practice 01/02/[address] [address] Ingrid Santana, RN Registered Nurse Transplant 02/10/12 documented as of this encounter
--- OUTSIDE RECORDS SUMMARY | 2022-05-28 11:22 | XMS_ITS | Encounter Summary ---
:1950 Author Organization [place] Address [facility] [place] [address] Care Team Providers Name Role Phone Ingrid Santana RN Unavailable Unavailable Momo Forbes Primary Care Provider Joseph Quintana MD Unavailable Encounter Details Date Type Department Care Team Description 06/08/2014 External Order Results The Transplant Ce nter Nurse, [facility] 2nd Floor, Clinic [address] [phone] Social History Tobacco Use Types Packs/Day Years [...] External Lab Result (06/05/2014 8:30 AM CDT) [facility] Method Time Signature Sodium (External) [...] filedocumented in this encounter Care Teams Health Care / Medical Job Titles Relationship Specialty Start Date End Date Momo Forbes PCP - General Family Practice 01/02/14 [facility] [address] [place] [address] Ingrid Santana, RN Registered Nurse Transplant 02/10/12 Joseph Quintana, Assigned Nephrology 03/29/21 MD Provider [address] [place] [address] [address] [place] [address] documented as of this encounter
--- OUTSIDE RECORDS SUMMARY | 2022-05-28 11:22 | XMS_ITS | Encounter Summary ---
:1950 Author Organization [place] Address Critical access hospital0 [place] [address] Care Team Providers Name Role Phone Ingrid Santana RN Unavailable Unavailable Momo Forbes Primary Care Provider Reason for Visit Reason Comments Heart Problem 2 m f/u Post op AFIB s/p DCC V. on warfarin 4 weeks Encounter Details Date Type Department Care Team Description 04/09/2014 [facility]ill [facility] (H) (Primary Dx); [facility] Enrique Maria pecified essential hypertension; Heart Other and unspecified hyperlipidemia; Tommy [facility] DM (diabetes mellitus), type 2 (H) Building [place] 4th Floor, Clinic 4B [address] [facility] [address] [phone] [place], [place] (Work) [phone] [phone] Social History Tobacco Use Types Packs/Day Years [...] questions or concerns. 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 Specific [place] Urine 04/01/2014 1.017 1.003 - 1.035 Final [...] NEG Ketones Urine Negative NEG mg/dL Specific [place] Urine 1.017 1.003 - 1.035 Blood Urine [...] uncontrolled documented in this encounter Care Teams Supervisor Car Installations Relationship Specialty Start Date End Date Momo Forbes PCP - General Family Practice 01/02/14 [facility] [address] [place] [address] Ingrid Santana, RN Registered Nurse Transplant 02/10/12 documented as of this encounter
--- OUTSIDE RECORDS SUMMARY | 2022-05-28 11:22 | XMS_ITS | Encounter Summary ---
:1950 Author Organization [place] Address [address] [place] [address] Care Team Providers Name Role Phone Ingrid Santana RN Unavailable Unavailable Momo Forbes Primary Care Provider Encounter Details Date Type Department Care Team Description 05/22/2014 Orders Only [facility] Spong, Joseph Conor isael, [facility] 500 [facility] [address] [place] [phone] [place] [address] [place] [address] (Wo rk) Social History Tobacco [...] Results Tacrolimus level (06/17/2014 8:05 AM CDT) [facility] gist Method Time Signature Tacrolimus Last 06/16/14 [facility] Dose 2000 [facility] Tacrolimus 6.5 5.0 - [facility] Level 15.0 ug/L [facility] Comment: Tacrolimus Reference Range Kidney Transplant [...] Phon e Number [facility] 500 [place], [place] [phone] [place] [address] [facility] Tacrolimus level (06/10/2014 7:52 AM CDT) [facility] gist Method Time Signature Tacrolimus Last 1999 [facility] Dose 06/09/14 [facility] Tacrolimus 7.9 5.0 - [facility] Level [...] Phon e Number [facility] 500 [place], [place] [phone] [place] [address] [facility] Tacrolimus level (06/05/2014 8:28 AM CDT) [facility] gist Method Time Signature Tacrolimus Last 1999 [facility] Dose 06/04/14 [facility] Tacrolimus 7.9 5.0 - [facility] Level [...] LAB - BLOOD ORDERABLES Performing Organization Address City/[facility]/ZIP Code Phon e Number [facility] [address] LABS Tacrolimus level (05/24/2014 8:05 AM CDT) [facility] gist Method Time Signature Tacrolimus 05/23/14 [facility] Last Dose 20:00 [facility] Tacrolimus Test 5.0 - [facility] Level canceled - 15.0 ug/L [facility] entry error Specimen Anatomical Collection Method Collection Time Receive d Time (Source) Location / / Volume Laterality 05/24/2014 8:05 AM 4 2:49 CDT PM CDT Deysi Alicea MD LAB - BLOOD ORDERABLES Performing Organization Address City/State/ZIP Code Phon e Number [facility] 500 [place], [place] [phone] [place] [address] [facility] Tacrolimus level (05/24/2014 8:05 AM CDT) Patholo gist Method Time Signature Tacrolimus Last 05/23/14 [facility] Dose 20:00 [facility] Tacrolimus 5.8 5.0 - [facility] Level 15.0 ug/L [facility] [place] [facility] Comment: Tacrolimus Reference Range Kidney Transplant [...] Phon e Number [facility] [address] LABS documented in this encounter Visit Diagnoses Not on filedocumented in this encounter Care Teams Pcts Relationship Specialty Start Date End Date Momo Forbes PCP - General Family Practice 01/02/14 [facility] 1999 [place] [address] Ingrid Santana, RN Registered Nurse Transplant 02/10/12 documented as of this encounter
--- OUTSIDE RECORDS SUMMARY | 2022-05-28 11:23 | XMS_ITS | Encounter Summary ---
:1950 Author Organization [place] Address [address] [place] [address]. [place] [address] Care Team Providers Name Role Phone Ingrid [...] 12-lead, tracing only (02/18/2014 9:53 AM CDT) [facility] gist Method Time Signature Interpretation ECG [...] on filedocumented in this encounter Care Teams Roof Cement And Paint Maker Relationship Specialty Start Date End Date Momo Forbes PCP - General Family Practice 01/02/14 [facility] [address] [place] [address] Ingrid Santana, RN Registered Nurse Transplant 02/10/12 documented as of this encounter
--- OUTSIDE RECORDS SUMMARY | 2022-05-28 11:23 | XMS_ITS | Encounter Summary ---
:1950 Author Organization [place] Address [address] [place] [address]. [place] [address] Care Team Providers Name Role Phone Ingrid Santana RN Unavailable Unavailable Momo Forbes Primary Care Provider Encounter Details Date Type Department Care Team Description 02/18/2014 Orders Only Nephrology Shiva Kahn RN -donor kidney transplant recipie nt (Primary Dx); 2nd Floor, Clinic 2A [facility] Kidney replaced by transplant; Tommy Ruiz[address] S/P kidney transplant Building [address] [place] [phone] Social History Tobacco Use Types Packs/Day Years [...] transplant documented in this encounter Care Teams Photoresist Printer Relationship Specialty Start Date End Date Momo Forbes PCP - General Family Practice 01/02/14 [facility] [address] [place] [address] Ingrid Santana, RN Registered Nurse Transplant 02/10/12 documented as of this encounter
--- OUTSIDE RECORDS SUMMARY | 2022-05-28 11:23 | XMS_ITS | Encounter Summary ---
:1950 Author Organization [place] Address 2450 [facility] [place] [address] Care Team Providers Name Role Phone Ingrid Santana RN Unavailable Unavailable Momo Forbes Primary Care Provider Reason for Referral Specialty Diagnoses / Procedures Referred By Contact Refer red To Contact Migel Merchant MD 420 [facility] 195 [place], [place] [address] Referral ID Status Reason Start Date Expiration Date Visits Requ ested Visits Authorized Scheduling Instructions ANTICOAGULATION CLINIC COLLABORATIVE PRA CTICE AGREEMENT The following represents a collaborative practice agreement among the physicians of the Clinic and staff of the Anticoagulat ion Clinic Service ([facility]) Physicians shall: 1. Refer patients requiring anticoagulat ion to a specialty service staffed by personnel of Pharmacy Services and super vised by Clinic physicians. 2. Respond to questions and referrals fr pharmacy staff regarding delinquent or difficult patients. 3. Inform the [facility] staff when a new patie [...] Team Description 03/29/2014 Orders Only [facility] Migel Merchanta dylan fibrillation (H) (Primary Dx); Anticoagulation Clin ic MD Nathan regional intermodal truck driver (current) use of anticoagulant s [address] 420 [facility] [phone] [place], [place] [address] Social History Tobacco Use Types Packs/Day Years [...] Routine Atrial fibri llation (H) Ordered: 03/29/2014 Bisque Kiln Placer (Current) Use Of Anticoagulants documented as of this encounter Visit Diagnoses Diagnosis Atrial fibrillation (H) - Primary Atrial fibrillation skilled nursing (current) use of anticoagulant s Long-term (current) use of anticoagulant s documented in this encounter Care Teams Restrike Hammer Operator Relationship Specialty Start Date End Date Momo Forbes PCP - General Family Practice 01/02/14 [facility] [address] [place] [address] Ingrid Santana, RN Registered Nurse Transplant 02/10/12 documented as of this encounter
--- OUTSIDE RECORDS SUMMARY | 2022-05-28 11:23 | XMS_ITS | Encounter Summary ---
:1950 Author Organization [place] Address [address] [place] [address]. [place] [address] Care Team Providers Name Role Phone Ingrid Santana RN Unavailable Unavailable Momo Forbes Primary Care Provider Reason for Visit Reason Onset Date Comments Pt. Information/instruction 03/14/2014 Encounter Details Date Type Department Care Team Description 03/14/2014 Telephone [facility] Beto Womack Pt . Interventional Radio martha Dangelo RN Information/instructio 500 [place] [phone] Social History Tobacco Use Types Packs/Day Years [...] filedocumented in this encounter Care Teams Staff Cytotechnologist Relationship Specialty Start Date End Date Momo Forbes PCP - General Family Practice 01/02/14 [facility] [address] [place] [address] Ingrid Santana RN Registered Nurse Transplant 02/10/12 documented as of this encounter
--- OUTSIDE RECORDS SUMMARY | 2022-05-28 11:23 | XMS_ITS | Encounter Summary ---
:1950 Author Organization [place] Address [address] [place] [address] Care Team Providers Name Role Phone Ingrid Santana RN Unavailable Unavailable Momo Forbes Primary Care Provider Encounter Details Date Type Department Care Team Description 02/19/2014 Orders Only [facility] Spong, Joseph Conor isael, [facility] 500 [facility] [address] [place] [phone] [place] [address] 589 [place] [address] (Wo rk) Social History Tobacco [...] Results Tacrolimus level (03/19/2014 9:05 AM CDT) [facility] Method Time Signature Tacrolimus Last 03/18/14 [facility] Dose 2100 [facility] Tacrolimus 13.1 5.0 - [facility] Level 15.0 ug/L [facility] Comment: Tacrolimus Reference Range [...] Code Phon e Number [facility] 500 [place], [place] [phone] [place] [address] [facility] Tacrolimus level (03/12/2014 9:40 AM CDT) [facility] gist Method Time Signature Tacrolimus Not Provided [facility] Last Dose [facility] Tacrolimus 7.3 5.0 - [facility] Level 15.0 ug/L [facility] Comment: Tacrolimus Reference Range [...] Code Phon e Number [facility] [address] [facility] Tacrolimus level (03/08/2014 10:15 AM CDT) [facility] gist Method Time Signature Tacrolimus Last 03/07/14 [facility] Dose 2000 [facility] Tacrolimus 6.1 5.0 - [facility] Level 15.0 ug/L [facility] Comment: Tacrolimus Reference Range [...] Code Phon e Number [facility] [address] [facility] Tacrolimus level (03/06/2014 5:13 PM CDT) [facility] gist Method Time Signature Tacrolimus Last 1400 [facility] Dose 03/05/14 [facility] Tacrolimus 11.3 5.0 - [facility] Level 15.0 ug/L [facility] Comment: Tacrolimus Reference Range [...] Code Phon e Number [facility] 500 [place], [place] [address] [place] [address] [facility] Tacrolimus level (03/01/2014 8:10 AM CDT) [facility] gist Method Time Signature Tacrolimus Last 02/28/14 [facility] Dose 1930 [facility] Tacrolimus 10.6 5.0 - [facility] Level 15.0 ug/L [facility] Comment: Tacrolimus Reference Range [...] Code Phon e Number [facility] 500 [place], [place] [phone] [place] [address] [facility] Tacrolimus level (02/27/2014 8:15 AM CDT) [facility] gist Method Time Signature Tacrolimus Last 02/26/14 [facility] Dose 2000 [facility] Tacrolimus 11.4 5.0 - [facility] Level 15.0 ug/L [facility] Comment: Tacrolimus Reference Range [...] Code Phon e Number [facility] 500 [place], [place] [phone] [place] [address] LABS HLA Lukasz Class II Single Antigen (02/25/2014 10:43 AM CDT) Component Value Ref Test Analysis Performed At [facility] gist Range Method Time Signature SA2 [...] City/State/ZIP Code Phon e Number [facility] [place]ology[place], [place] [address] [facility] 500 [facility] [address] Building, Room 3-580 HISTOTRAC HLA Lukasz Class I Single Antigen (02/25/2014 10:43 AM CDT) Component Value Ref Test Analysis Performed At [facility] Range Method Time Signature SA1 Test SA [...] City/State/ZIP Code Phon e Number [facility] Immunology[place], [place] [address] [facility] 500 [facility] [address] [facility], Room 3-580 HISTOTRAC PRA Interfering Substance SCR (02/25/2014 10:43 AM CDT) Component Value Ref Test Analysis Performed At [facility] Range Method Time Signature Interfering Luminex HISTOTRAC [...] City/State/ZIP Code Phon e Number [facility] Immunology[place], [place] [address] [facility] 500 [facility] [address] [facility] Building, Room 3-580 HISTOTRAC Tacrolimus level (02/21/2014 8:45 AM CDT) [facility] gist Method Time Signature Tacrolimus Last 02/20/14 [facility] Dose 2000 [facility] Tacrolimus 7.9 5.0 - [facility] Level 15.0 ug/L [facility] Comment: Tacrolimus Reference Range [...] Code Phon e Number [facility] 500 [place], [place] [phone] [place] [address] LABS documented in this encounter Visit Diagnoses Not on filedocumented in this encounter Care Teams Electronic Prepress Operator Relationship Specialty Start Date End Date Momo Forbes PCP - General Family Practice 01/02/14 [facility] 1999 [place] [address] Ingrid Santana, RN Registered Nurse Transplant 02/10/12 documented as of this encounter
--- OUTSIDE RECORDS SUMMARY | 2022-05-28 11:23 | XMS_ITS | Encounter Summary ---
:1950 Author Organization [place] Address [address] [place] [address]. [place] [address] Care Team Providers Name Role Phone Ingrid Santana RN Unavailable Unavailable Momo Forbes Primary Care Provider Encounter Details Date Type Department Care Team Description 02/15/2014 Orders Only Nephrology Shiva Kahn RN Kidney replaced by transplant; 2nd Floor, Clinic 2A [facility] S/P kidney transplant Tommy [address] [place] [phone] Social History Tobacco Use Types Packs/Day Years [...] transplant documented in this encounter Care Teams Chimney Sweeper Relationship Specialty Start Date End Date Momo Forbes PCP - General Family Practice 01/02/14 [facility] [address] [place] [address] Ingrid Santana, RN Registered Nurse Transplant 02/10/12 documented as of this encounter
--- OUTSIDE RECORDS SUMMARY | 2022-05-28 11:23 | XMS_ITS | Encounter Summary ---
:1950 Author Organization [place] Address [facility] [place] [address] Care Team Providers Name Role Phone Ingrid Santana RN Unavailable Unavailable Momo Forbes Primary Care Provider Reason for Visit Reason Onset Date Comments Transplant 03/08/2014 Elevated tacrolimus level Encounter Details Date Type Department Care Team Description 03/08/2014 Telephone Nephrology Jeff Giordano (Elevated 2nd Floor, Clinic 2A Almita Palomino RN tacrolimus level) Tommy Wilburn [address] [phone] Social History Tobacco Use Types Packs/Day Years [...] repeat the level. Leonor Giordano R.N. - [phone] documented in this encounter Plan of Treatment Not on filedocumented as of this encounter Visit Diagnoses Not on filedocumented in this encounter Care Teams Docket Specialist Relationship Specialty Start Date End Date Momo Forbes PCP - General Family Practice 01/02/14 [facility] [address] [place] [address] Ingrid Santana, RN Registered Nurse Transplant 02/10/12 documented as of this encounter
--- OUTSIDE RECORDS SUMMARY | 2022-05-28 11:23 | XMS_ITS | Encounter Summary ---
:1950 Author Organization [place] Address [address] [place] [address]. [place] [address] Care Team Providers Name Role Phone Ingrid Santana RN Unavailable Unavailable Momo Forbes Primary Care Provider Encounter Details Date Type Department Care Team Description 03/14/2014 Orders Only Nephrology Shiva Kahn RN -donor kidney 2nd Floor, Clinic 2A [facility] transplant recipient Tommy Ruizteen [address] [place] [address] [place] [phone] Social History Tobacco Use Types Packs/Day Years [...] transplant documented in this encounter Care Teams Computer Engineering Professor Relationship Specialty Start Date End Date Momo Forbes PCP - General Family Practice 01/02/14 [facility] [address] [place] [address] Ingrid Santana, RN Registered Nurse Transplant 02/10/12 documented as of this encounter
--- OUTSIDE RECORDS SUMMARY | 2022-05-28 11:23 | XMS_ITS | Encounter Summary ---
:1950 Author Organization [place] Address formerly [facility] [place] [address] Care Team Providers Name Role Phone Ingrid Santana RN Unavailable Unavailable Momo Forbes Primary Care Provider Reason for Visit Reason Onset Date Comments Previsit 02/20/2014 Encounter Details Date Type Department Care Team Description 02/20/2014 Telephone Transplant Surgery C nanda Merchant, Migel Evans MD Previsit 2nd Floor, Clinic 2A [address] [place] [address] [facility] [place] [phone] Social History Tobacco Use Types Packs/Day Years [...] on filedocumented in this encounter Care Teams Hog Pusher Relationship Specialty Start Date End Date Momo Forbes PCP - General Family Practice 01/02/[address] [address] Ingrid Santana, RN Registered Nurse Transplant 02/10/12 documented as of this encounter
--- OUTSIDE RECORDS SUMMARY | 2022-05-28 11:23 | XMS_ITS | Encounter Summary ---
:1950 Author Organization [place] Address [facility] [place] [address] Care Team Providers Name Role Phone Ingrid Santana RN Unavailable Unavailable Momo Forbes Primary Care Provider Reason for Visit Reason Onset Date Comments Previsit 02/15/[address] Merchant 02/18 Encounter Details Date Type Department Care Team Description 02/15/2014 Telephone Transplant Surgery Rdaha Acosta LPN Prev isit (Appt with Dr Anthony Merchant 02/18) 2nd Floor, Clinic [address]A [address] [phone] Social History Tobacco Use Types Packs/Day Years [...] on filedocumented in this encounter Care Teams Video Production Specialist Relationship Specialty Start Date End Date Momo Forbes PCP - General Family Practice 01/02/[address] [address] Ingrid Santana, RN Registered Nurse Transplant 02/10/12 documented as of this encounter
--- OUTSIDE RECORDS SUMMARY | 2022-05-28 11:23 | XMS_ITS | Encounter Summary ---
:1950 Author Organization [place] Address [address] [place] [address]. [place] [address] Care Team Providers Name Role Phone Ingrid Santana RN Unavailable Unavailable Momo Forbes Primary Care Provider Encounter Details Date Type Department Care Team Description 03/11/2014 Orders Only Transplant Surgery Celina Cole (Primary Clinic A, Dx) 2nd Floor, Clinic 2A [address] [address] [facility] [address] Social History Tobacco Use Types [...] channels documented in this encounter Care Teams Video Game Designer Relationship Specialty Start Date End Date Momo Forbes PCP - General Family Practice 01/02/14 [facility] 1999 [place], [place] [phone] Ingrid Santana, RN Registered Nurse Transplant 02/10/12 documented as of this encounter
--- OUTSIDE RECORDS SUMMARY | 2022-05-28 11:23 | XMS_ITS | Encounter Summary ---
:1950 Author Organization [place] Address [address] [place] [address] Care Team Providers Name Role Phone Ingrid Santana RN Unavailable Unavailable Momo Forbes Primary Care Provider Reason for Visit Auth/Cert - Closed Specialty Diagnoses / Procedures Referred By Contact Refer red To Contact Surgery Diagnoses Status Post Kidney Transplant Uu Periop Procedures COMBINED CYSTOSCOPY, REMOVE STENT(S) 500 [place] [address] Phone: Fax: Referral ID Status Reason Start Date Expiration Date Visits Requ ested Visits Authorized [id number] Closed 1 1 Encounter Details Date Type Department Care Team Description 03/11/2014 Hospital Encounter [facility] Migel Merchant, Same Day Surgery [facility] [address] 500 [facility] 195 [place] [address] [place] [address] (Wo rk) Social History Tobacco Use Types [...] 8:46 CDT AM CDT Migel Merchant MD [facility] POCT Performing Organization Address City/State/ZIP Code Phon e Number [facility] POINT OF CARE TEST, GLUCOSE POINT OF CARE TEST, GLUCOSE documented in this encounter Visit Diagnoses Not on filedocumented in this encounter Active and Recently Administered Medications Care Teams Care Transition Coordinator Relationship Specialty Start Date End Date Momo Forbes PCP - General Family Practice 01/02/14 [facility] [address] [place] [address] Ingrid Santana, RN Registered Nurse Transplant 02/10/12 documented as of this encounter
--- OUTSIDE RECORDS SUMMARY | 2022-05-28 11:23 | XMS_ITS | Encounter Summary ---
:1950 Author Organization [place] Address [facility] [place] [address] Care Team Providers Name Role Phone Ingrid Santana RN Unavailable Unavailable Momo Forbes Primary Care Provider Reason for Visit Reason Onset Date Comments Refill Request 03/04/2014Augyusuf Encounter Details Date Type Department Care Team Description 03/04/2014 Refill The Transplant Kaitlynn Moreno MD Refill Request 2nd Floor, Clinic 2A [facility] [address] [address] [place], [place] [phone] (Wo rk) [address] [phone] Social History Tobacco Use Types Packs/Day Years [...] Fill Date: 02/08/14 Quantity: 60 Michael Manuel [facility] [phone] documented in this encounter Plan of Treatment Not on filedocumented as of this encounter Visit Diagnoses Diagnosis Atrial fibrillation (H) Atrial fibrillation documented in this encounter Care Teams Sales Service Representative Relationship Specialty Start Date End Date Momo Forbes PCP - General Family Practice 01/02/[address] [address] Ingrid Santana, RN Registered Nurse Transplant 02/10/12 documented as of this encounter
--- OUTSIDE RECORDS SUMMARY | 2022-05-28 11:23 | XMS_ITS | Encounter Summary ---
:1950 Author Organization [place] Address [address] [place] [address] Care Team Providers Name Role Phone Ingrid Santana RN Unavailable Unavailable Momo Forbes Primary Care Provider Encounter Details Date Type Department Care Team Description 03/22/2014 Orders Only [facility] Spong, Joseph Conor isael, [facility] 500 [facility] [address] [place] [phone] [place] [address] [place] [address] (Wo rk) Social History Tobacco [...] Results Tacrolimus level (04/19/2014 8:40 AM CDT) [facility] Method Time Signature Tacrolimus Not Provided [facility] Last Dose [facility] Tacrolimus 10.3 5.0 - [facility] Level 15.0 ug/L [facility] Comment: Tacrolimus Reference Range Kidney [...] Phon e Number [facility] 500 [place] [address] [facility] Tacrolimus level (04/16/2014 8:22 AM CDT) [facility] gist Method Time Signature Tacrolimus Not Provided [facility] Last Dose [facility] Tacrolimus 9.1 5.0 - [facility] Level 15.0 ug/L [facility] Comment: Tacrolimus Reference Range Kidney [...] Phon e Number [facility] [address] [facility] Tacrolimus level (04/11/2014 8:40 AM CDT) [facility] gist Method Time Signature Tacrolimus Last 04/10/14 [facility] Dose 19:00 [facility] Tacrolimus 14.4 5.0 - [facility] Level 15.0 ug/L [facility] Comment: Tacrolimus Reference Range Kidney [...] City/State/[facility] Code Phon e Number [facility] 500 [place], [place] [id number] [place] [address] [facility] Tacrolimus level (04/09/2014 8:45 AM CDT) [facility] gist Method Time Signature Tacrolimus Last 04/08/14 [facility] Dose 2000 [facility] Tacrolimus 11.7 5.0 - [facility] Level 15.0 ug/L [facility] Comment: Tacrolimus Reference Range Kidney [...] Phon e Number [facility] 500 [place], [place] [id number] [place] [address] LABS Tacrolimus level (04/05/2014 9:40 AM CDT) [facility] gist Method Time Signature Tacrolimus Last 1999 [facility] Dose 04/04/14 [facility] Tacrolimus 9.7 5.0 - [facility] Level 15.0 ug/L [facility] Comment: Tacrolimus Reference Range Kidney [...] Phon e Number [facility] 500 [place] [address] [facility] (ABNORMAL) Tacrolimus level (03/28/2014 8:30 AM CDT) [facility] gist Method Time Signature Tacrolimus Last 03/27/14 [facility] Dose 1900 [facility] Tacrolimus 15.8 (H) 5.0 - [facility] Level 15.0 ug/L [facility] Comment: Tacrolimus Reference Range Kidney [...] Phon e Number [facility] 500 [place] [address] [facility] Tacrolimus level (03/26/2014 9:18 AM CDT) [facility] gist Method Time Signature Tacrolimus Last 03/25/14 [facility] Dose 1900 [facility] Tacrolimus 9.2 5.0 - [facility] Level 15.0 ug/L [facility] Comment: Tacrolimus Reference Range Kidney [...] Phon e Number [facility] [address] [facility] Tacrolimus level (03/14/2014 9:00 AM CDT) [facility] gist Method Time Signature Tacrolimus Last 2000 [facility] Dose 03/13/14 [facility] Tacrolimus 9.5 5.0 - [facility] Level 15.0 ug/L [facility] Comment: Tacrolimus Reference Range Kidney [...] Phon e Number [facility] 500 [place], [place] [phone] [place] [address] LABS documented in this encounter Visit Diagnoses Not on filedocumented in this encounter Care Teams Patient Care Representative Relationship Specialty Start Date End Date Momo Forbes PCP - General Family Practice 01/02/14 [facility] [address] [place] [address] Ingrid Santana, RN Registered Nurse Transplant 02/10/12 documented as of this encounter
--- OUTSIDE RECORDS SUMMARY | 2022-05-28 11:23 | XMS_ITS | Encounter Summary ---
:1950 Author Organization [place] Address [facility] [place] [address] Care Team Providers Name Role Phone Ingrid Santana RN Unavailable Unavailable Momo Forbes Primary Care Provider Reason for Visit Reason Onset Date Comments Pre Visit Planning - Done 03/08/2014 Appointment on 03/11/2014 Encounter Details Date Type Department Care Team Description 03/08/2014 Telephone Nephrology Alexandria Caldera Pre Visit Planning - 2nd Floor, Clinic 2A [facility] [place] Done (Appointment on Sanders Akila 03/11/20 14) [address] [phone] Social History Tobacco Use Types Packs/Day Years [...] bring list of medications. Toldpatient to call [phone] if any questions or needs to reschedule. Alexandria Caldera CMA documented in this encounter Plan of Treatment Not on filedocumented as of this encounter Visit Diagnoses Not on filedocumented in this encounter Care Teams Public Housing Manager Relationship Specialty Start Date End Date Momo Forbes PCP - General Family Practice 01/02/14 [facility] [address] [place] [address] Ingrid Santana, RN Registered Nurse Transplant 02/10/12 documented as of this encounter
--- OUTSIDE RECORDS SUMMARY | 2022-05-28 11:23 | XMS_ITS | Encounter Summary ---
:1950 Author Organization [place] Address [address] [place] [address]. [place] [address] Care Team Providers Name Role Phone Ingrid Santana RN Unavailable Unavailable Momo Forbes Primary Care Provider Reason for Visit Reason Comments Surgical Followup Post op for kidney transplan t POD 16 Encounter Details Date Type Department Care Team Description 02/18/2014 Office Visit Transplant Surgery Migel Merchant S/P jamari y transplant (Primary Dx); Clinic MD Nathan Postop check; 2nd Floor, Clinic [address] [place] [address] Immunosuppression (H); [facility] 1 95 Atrial fibrillation (H) [phone] [place] [address] [place], [place] (Work) [phone] Social History Tobacco Use [...] Stent: out in ~ 4 weeks 4. [place]. Follow up next Tuesday for staple removal [...] fibrillation documented in this encounter Care Teams Lab Support Service Tech Relationship Specialty Start Date End Date Momo Forbes PCP - General Family Practice 01/02/14 [place] [id number] Ingrid Santana, RN Registered Nurse Transplant 02/10/12 documented as of this encounter
--- OUTSIDE RECORDS SUMMARY | 2022-05-28 11:23 | XMS_ITS | Encounter Summary ---
:1950 Author Organization [place] Address [facility], [id number] [facility] [place] [address] Care Team Providers Name Role Phone Ingrid Santana RN Unavailable Unavailable Momo Forbes Primary Care Provider Reason for Visit Reason Comments Surgical Followup kidney tx 02/02/14 Encounter Details Date Type Department Care Team Description 02/25/2014 Office Visit Transplant Surgery Migel Merchant Hypophosp hatemia (Primary Dx); Clinic MD Nathan Kidney replaced by transplant; 2nd Floor, Clinic 2A [address] [place] -donor kidney transp lant recipient; [address] 1 95 High risk medications (not anticoagulant s) long-term use; Building residential (current) use of anticoagulant s; 516 [place], [place] Hyp[place]; [place] [address] Orthostatic hypotension [facility] 88 [place], [place] (Work) [phone] Social History Tobacco Use [...] Somewhat lethargic. Otherwise well Abd mod obesity. Stevenson in place. Drain with small amt of [...] sults (not anticoagulants) section . long-term use residential (current) use of anticoagulants PHOSPHORUS Routine 02/25/2014 [...] [facility] Range Method Time Signature BK Virus DNA Plasma, EDTA [facility] Quant Source anticoagulant [facility] BK Virus DNA <390 [facility] Quant Unit: cpy/mL [facility] Copy/mL [place] [facility] BK Virus DNA <2.6 [facility] Quant Log Unit: log [place] (Note) [place] [facility] INTERPRETIVE INFORMATION: BK Virus, Quantitation by [...] methodologies. Test developed and characteristics determined by [employer]. See Compliance Statement A: [employer]Cole Martin/CS BK Virus DNA Not Detected [facility] Quant Interp Reference range: Not Detected [place] (Note) [place] [facility] Performed by [employer], [address] [place] [id number] [email or web address], Kj Mcmillan MD, Lab. Director Specimen Anatomical Collection Method Collection Time Receive d Time (Source) Location / / Volume Laterality Blood specimen 02/25/2014 10:54 4 (specimen) AM CDT 10:55 AM CDT Deysi Alicea MD LAB - MICRO GENERAL ORDERABL ES Performing Organization Address City/State/ZIP Code Phon e Number [phone] [place] [address] LABS Immunology recipient: SOT PRA (Post Tx for Donor Spec Antibody) (02/25/2014 10:54 AM CDT) [facility] Method Time Signature Immunology PRA [facility] Test Name [facility] Immunology Specimen [facility] Result received - [facility] LABS report to follow upon completion. Specimen Anatomical Collection Method Collection Time Receive d Time (Source) Location / / Volume Laterality Blood specimen 02/25/2014 10:54 4 (specimen) AM CDT 10:55 AM CDT Deysi Alicea MD LAB - IMMUNOLOGY ORDERABLES Performing Organization Address City/State/ZIP Code Phon e Number [address] LABS (ABNORMAL) INR (02/25/2014 10:53 AM CDT) P athologist Signature INR 2.39 (H) 0.86 - 1.14 [facility] LABS Specimen Anatomical Collection Method Collection Time Receive d Time (Source) Location / / Volume Laterality Blood specimen 02/25/2014 10:53 4 (specimen) AM CDT 10:54 AM CDT Migel Merchant MD LAB - BLOOD ORDERABLES Performing Organization Address City/[facility]/ZIP Code Phon e Number [address] LABS (ABNORMAL) Magnesium (02/25/2014 10:53 AM CDT) P athologist Signature Magnesium 1.5 (L) 1.6 - 2.3 [facility] mg/dL [place] [facility] Specimen Anatomical Collection Method Collection Time Receive d Time (Source) Location / / Volume Laterality Blood specimen 02/25/2014 10:53 4 (specimen) AM CDT 10:54 AM CDT Deysi Alicea MD LAB - BLOOD ORDERABLES Performing Organization Address City/[facility]/ZIP Code Phon e Number [facility] [address] LABS (ABNORMAL) Phosphorus (02/25/2014 10:53 AM CDT) P athologist Signature Phosphorus 1.3 (L) 2.5 - 4.5 [facility] mg/dL [place] [facility] Specimen Anatomical Collection Method Collection Time Receive d Time (Source) Location / / Volume Laterality Blood specimen 02/25/2014 10:53 4 (specimen) AM CDT 10:54 AM CDT Deysi Alicea MD LAB - BLOOD ORDERABLES Performing Organization Address City/[facility] Code Phon e Number [facility] 500 [place] [id number] [facility] LABS Mycophenolic acid (02/25/2014 10:53 AM CDT) Component Value Ref Test Analysis Performed At Patholo gist Range Method Time Signature Last Dose 02/24/14 ?? 1999 [facility] Mycophenolic CORRECTED ON 02/25 AT 1055: PREVIOUSLY REPORTED 1999 [facility] Mycophenolic 1.39 1.00 - [facility] Acid Mg/L 3.50 [facility] mg/L [place] [facility] MPA Glucuronide 80.2 30.0 - [facility] Level 95.0 [place] mg/L [place] [facility] Specimen Anatomical Collection Method Collection Time Receive d Time (Source) Location / / Volume Laterality Blood specimen 02/25/2014 10:53 4 (specimen) AM CDT 10:54 AM CDT Deysi Alicea MD LAB - BLOOD ORDERABLES Performing Organization Address [facility]/ZIP Code Phon e Number [facility] [address] LABS Tacrolimus level (02/25/2014 10:53 AM CDT) Patholo gist Method Time Signature Tacrolimus 02/24/14 ?1999 [facility] Last Dose CORRECTED ON 02/25 AT 1055: PREVIOUSLY REPORTED 1999 [facility] Tacrolimus 9.1 5.0 - [facility] Level 15.0 ug/L [facility] Comment: Tacrolimus Reference Range Kidney [...] e Number [facility] [address] LABS (ABNORMAL) Basic metabolic panel (02/25/2014 10:53 AM CDT) [facility] Method Time Signature Sodium 137 133 - 144 [facility] mmol/L [facility] Potassium 4.6 3.4 - 5.3 [facility] mmol/L [facility] Chloride 108 94 - 109 [facility] mmol/L [facility] Carbon Dioxide 19 (L) 20 - 32 [facility] mmol/L [facility] Anion Gap 10 6 - 17 [facility] mmol/L [facility] Glucose 217 (H) 60 - 99 [facility] mg/dL [facility] Urea Nitrogen 13 7 - 30 [facility] mg/dL [facility] Creatinine 1.48 (H) 0.66 - [facility] 1.25 mg/dL [facility] GFR Estimate 48 (L) >60 [facility] mL/min/1.7 [place] m2 [place] [facility] GFR Estimate If 58 (L) >60 [facility] Black mL/min/1.7 [place] [address] CAMPUS LABS Calcium 9.6 8.5 - 10.4 [facility] mg/dL [facility] Specimen Anatomical Collection Method Collection Time Receive d Time (Source) Location / / Volume Laterality Blood specimen 02/25/2014 10:53 4 (specimen) AM CDT 10:54 AM CDT Deysi Alicea MD LAB - BLOOD ORDERABLES Performing Organization Address City/State/ZIP Code Phon e Number [phone] [place] [address] [facility] (ABNORMAL) CBC with platelets differential (02/25/2014 10:53 AM CDT) [facility] gist Method Time Signature WBC 4.9 4.0 - [facility] 11.0 [facility] 10e9/L CAMPUS LABS RBC Count 2.67 (L) 4.4 - 5.9 [facility] 10e12/L [facility] Hemoglobin 7.8 (L) 13.3 - [facility] 17.7 g/dL [facility] Hematocrit 23.5 (L) 40.0 - [facility] 53.0 % [facility] MCV 88 78 - 100 [facility] fl [facility] [place] [facility] MCH 29.2 26.5 - [facility] 33.0 pg [facility] MCHC 33.2 31.5 - [facility] 36.5 g/dL [facility] [place] [facility] RDW 14.3 10.0 - [facility] 15.0 % [facility] Platelet Count 179 150 - 450 [facility] 10e9/L [facility] Diff Method Automated [facility] Method [facility] % Neutrophils 89.4 % [facility] LABS % Lymphocytes 3.9 % [facility] % Monocytes 5.1 % [facility] % Eosinophils 1.2 % [facility] % Basophils 0.2 % [facility] % Immature 0.2 % [facility] Granulocytes [facility] Absolute 4.4 1.6 - 8.3 [facility] Neutrophil 10e9/L [facility] Absolute 0.2 (L) 0.8 - 5.3 [facility] Lymphocytes 10e9/L [facility] Absolute 0.3 0.0 - 1.3 [facility] Monocytes 10e9/L [facility] Absolute 0.1 0.0 - 0.7 [facility] Eosinophils 10e9/L [facility] Absolute 0.0 0.0 - 0.2 [facility] Basophils 10e9/L [facility] Abs Immature 0.0 0 - 0.4 [facility] Granulocytes 10e9/L [facility] Specimen Anatomical Collection Method Collection Time Receive d Time (Source) Location / / Volume Laterality Blood specimen 02/25/2014 10:53 4 (specimen) AM CDT 10:54 AM CDT Deysi Alicea MD LAB - BLOOD ORDERABLES Performing Organization Address City/State/ZIP Code Phon e Number [facility] 500 [place] [address] [facility] LABS documented in this encounter Visit Diagnoses Diagnosis 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 replaced by transplant -donor kidney transplant recipie nt Kidney replaced by transplant High risk medications (not anticoagulant s) long-term use Encounter for long-term (current) use of other medications residential (current) use of anticoagulant s Long-term (current) use of anticoagulant s Hypomagnesemia Disorders of magnesium metabolism Orthostatic hypotension documented in this encounter Care Teams Cooler Servicer Relationship Specialty Start Date End Date Momo Forbes PCP - General Family Practice 01/02/14 [facility] [address] [place] [address] Ingrid Santana, RN Registered Nurse Transplant 02/10/12 documented as of this encounter
--- OUTSIDE RECORDS SUMMARY | 2022-05-28 11:23 | XMS_ITS | Encounter Summary ---
:1950 Author Organization [place] Address [address] [place] [address]. [place] [address] Care Team Providers Name Role Phone Ingrid Santaan RN Unavailable Unavailable Momo Forbes Primary Care Provider Encounter Details Date Type Department Care Team Description 03/01/2014 Orders Only Nephrology Shiva Kahn RN -donor kidney 2nd Floor, Clinic 2A [facility] transplant recipient Tommy Ruizteen [address] [place] [address] [place] [phone] Social History Tobacco Use Types Packs/Day Years [...] transplant documented in this encounter Care Teams Bicycle I Assembler Relationship Specialty Start Date End Date Momo Forbes PCP - General Family Practice 01/02/14 [facility] [address] [place] [address] Ingrid Santana, RN Registered Nurse Transplant 02/10/12 documented as of this encounter
--- OUTSIDE RECORDS SUMMARY | 2022-05-28 11:23 | XMS_ITS | Encounter Summary ---
:1950 Author Organization [place] Address [facility]ly [facility] [place] [address] Care Team Providers Name Role Phone Ingrid Santana RN Unavailable Unavailable Momo Forbes Primary Care Provider Encounter Details Date Type Department Care Team Description 02/18/2014 Orders Only The Transplant Deysi Burns, Kidney replaced by transplan t; 2nd Floor, Clinic 2A S/P kidney transplant [facility] 516 [facility] [address] [place] [address] [address] [place], [place] [id number] [place] [address] (Wo rk) [address] [phone] Social History Tobacco Use Types Packs/Day Years [...] [facility] mg/dL [place] [facility] Specimen Anatomical Collection Method Collection Time Receive d Time (Source) Location / / Volume Laterality Blood specimen 02/18/2014 8:56 AM 014 8:57 (specimen) CDT AM CDT Kaitlynn Leon MD LAB - BLOOD ORDERABLES Performing Organization Address City/State/ZIP Code Phon e Number [address] LABS (ABNORMAL) Phosphorus (02/18/2014 8:56 AM CDT) athologist Signature Phosphorus 1.9 (L) 2.5 - 4.5 [facility] mg/dL [place] [facility] Specimen Anatomical Collection Method Collection Time Receive d Time (Source) Location / / Volume Laterality Blood specimen 02/18/2014 8:56 AM 014 8:57 (specimen) CDT AM CDT Kaitlynn Leon MD LAB - BLOOD ORDERABLES Performing Organization Address City/State/ZIP Code Phon e Number [address] LABS Tacrolimus level (02/18/2014 8:56 AM CDT) [facility] gist Method Time Signature Tacrolimus Last 06/24/14 [facility] Dose 1930 [facility] LABS Tacrolimus 14.1 5.0 - [facility] Level 15.0 ug/L [facility] [...] Code Phon e Number [facility] [address] [place] [address] [facility] LABS (ABNORMAL) CBC with platelets differential (02/18/2014 8:56 AM CDT) [facility] gist Method Time Signature WBC 6.3 4.0 - [facility] 11.0 [facility] 10e9/L [place] [facility] RBC Count 2.59 (L) 4.4 - 5.9 [facility] 10e12/L [facility] LABS Hemoglobin 7.8 (L) 13.3 - [facility] 17.7 g/dL [facility] LABS Hematocrit 23.7 (L) 40.0 - [facility] 53.0 % [facility] LABS MCV 92 78 - 100 [facility] fl [facility] LABS MCH 30.1 26.5 - [facility] 33.0 pg [facility] LABS MCHC 32.9 31.5 - [facility] 36.5 g/dL [facility] LABS RDW 14.7 10.0 - [facility] 15.0 % [facility]S Platelet Count 140 (L) 150 - 450 [facility] 10e9/L [facility] LABS Diff Method Automated [facility] Method [facility] LABS % Neutrophils 84.7 % [facility] LABS % Lymphocytes 3.8 % [facility] LABS % Monocytes 6.0 % [facility] LABS % Eosinophils 4.8 % [facility] LABS % Basophils 0.5 % [facility] % Immature 0.2 % [facility] Granulocytes [facility] LABS Absolute 5.3 1.6 - 8.3 [facility] Neutrophil 10e9/L [facility] LABS Absolute 0.2 (L) 0.8 - 5.3 [facility] Lymphocytes 10e9/L [facility] LABS Absolute 0.4 0.0 - 1.3 [facility] Monocytes 10e9/L [facility] LABS Absolute 0.3 0.0 - 0.7 [facility] Eosinophils 10e9/L [facility] LABS Absolute 0.0 0.0 - 0.2 [facility] Basophils 10e9/L [facility] LABS Abs Immature 0.0 0 - 0.4 [facility] Granulocytes 10e9/L [facility] LABS Specimen Anatomical Collection Method Collection Time Receive d Time (Source) Location / / Volume Laterality Blood specimen 02/18/2014 8:56 AM 014 8:57 (specimen) CDT AM CDT Kaitlynn Leon MD LAB - BLOOD ORDERABLES Performing Organization Address City/State/ZIP Code Phon e Number [facility] [address] [place] [address] [facility] LABS (ABNORMAL) Basic metabolic panel (02/18/2014 8:56 AM CDT) Patholo gist Method Time Signature Sodium 141 133 - 144 [facility] mmol/L [facility] LABS Potassium 5.2 3.4 - 5.3 [facility] mmol/L [facility] LABS Chloride 112 (H) 94 - 109 [facility] mmol/L [facility] LABS Carbon Dioxide 18 (L) 20 - 32 [facility] mmol/L [facility] LABS Anion Gap 11 6 - 17 [facility] mmol/L [facility]S Glucose 185 (H) 60 - 99 [facility] mg/dL [facility]S Urea Nitrogen 24 7 - 30 [facility] mg/dL [facility] LABS Creatinine 1.81 (H) 0.66 - [facility] 1.25 mg/dL [facility] LABS GFR Estimate 38 (L) >60 [facility] mL/min/1.7 [place] [facility] LABS GFR Estimate If 46 (L) >60 [facility] Black mL/min/1.[address] LABS Calcium 9.4 8.5 - 10.4 [facility] mg/dL [facility] LABS Specimen Anatomical Collection Method Collection Time Receive d Time (Source) Location / / Volume Laterality Blood specimen 02/18/2014 8:56 AM 014 8:57 (specimen) CDT AM CDT Kaitlynn Leon MD LAB - BLOOD ORDERABLES Performing Organization Address City/[facility] Code Phon e Number [address] LABS (ABNORMAL) INR (02/18/2014 8:56 AM CDT) P athologist Signature INR 2.13 (H) 0.86 - 1.14 [facility] LABS Specimen Anatomical Collection Method Collection Time Receive d Time (Source) Location / / Volume Laterality Blood specimen 02/18/2014 8:56 AM 014 8:57 (specimen) CDT AM CDT Kaitlynn Leon MD LAB - BLOOD ORDERABLES Performing Organization Address City/[facility] Code Phon e Number [address] LABS documented in this encounter Visit Diagnoses Diagnosis Kidney replaced by transplant S/P kidney transplant Kidney replaced by transplant documented in this encounter Care Teams Quality Control Chemist Relationship Specialty Start Date End Date Momo Forbes PCP - General Family Practice 01/02/14 [facility] [address] [place] [address] Ingrid Santana, RN Registered Nurse Transplant 02/10/12 documented as of this encounter
--- OUTSIDE RECORDS SUMMARY | 2022-05-28 11:23 | XMS_ITS | Encounter Summary ---
:1950 Author Organization [place] Address [address] [place] [address]. [place] [address] Care Team Providers Name Role Phone Ingrid Santana RN Unavailable Unavailable Momo Forbes Primary Care Provider Encounter Details Date Type Department Care Team Description 03/19/2014 Orders Only Nephrology Shiva Kahn RN -donor kidney 2nd Floor, Clinic 2A [facility] transplant recipient Tommy Ruizteen [address] [place] [address] [place] [phone] Social History Tobacco Use Types Packs/Day Years [...] transplant documented in this encounter Care Teams Assignment Editor Relationship Specialty Start Date End Date Momo Forbes PCP - General Family Practice 01/02/14 [facility] [address] [place] [address] Ingrid Santana, RN Registered Nurse Transplant 02/10/12 documented as of this encounter
--- OUTSIDE RECORDS SUMMARY | 2022-05-28 11:23 | XMS_ITS | Encounter Summary ---
:1950 Author Organization [place] Address [facility] [place] [address] Care Team Providers Name Role Phone Ingrid Santana RN Unavailable Unavailable Momo Raines Primary Care Provider Reason for Visit Reason Comments Consult consult for afib Encounter Details Date Type Department Care Team Description 02/18/2014 Office Visit [facility] Joseph Hernandez, (H) (Primary Dx) Heart MD [facility] Building [place] 4th Floor, Clinic 4B [address] [phone] [place], [place] (Work) [address] [phone] Social History Tobacco Use Types Packs/Day Years [...] Years of Education: 14 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
--- OUTSIDE RECORDS SUMMARY | 2022-05-28 11:23 | XMS_ITS | Encounter Summary ---
:1950 Author Organization [place] Address [facility]0 [place] [address] Care Team Providers Name Role Phone Ingrid Santana RN Unavailable Unavailable Momo Forbes Primary Care Provider Reason for Visit Reason Onset Date Comments Patient Reminder 03/26/2014 Encounter Details Date Type Department Care Team Description 03/26/2014 Telephone Nephrology Yesenia Clements CMA Patient Reminder 2nd Floor, Clinic 2A [place] [phone] Social History Tobacco Use Types Packs/Day [...] on filedocumented in this encounter Care Teams Java Lead Developer Relationship Specialty Start Date End Date Momo Forbes PCP - General Family Practice 01/02/14 [facility] [address] [place] [id number] Ingrid Santana, RN Registered Nurse Transplant 02/10/12 documented as of this encounter
--- OUTSIDE RECORDS SUMMARY | 2022-05-28 11:23 | XMS_ITS | Encounter Summary ---
:1950 Author Organization [place] Address [address] [place] [address]. [place] [address] Care Team Providers Name Role Phone Ingrid Santana RN Unavailable Unavailable Momo Forbes Primary Care Provider Encounter Details Date Type Department Care Team Description 03/13/2014 Orders Only Nephrology Shiva Kahn, Atrial fibrillation (H); 2nd Floor, Clinic 2A RN -donor kidney transplant stefani Wilburn [address] [address] [phone] Social History Tobacco Use Types Packs/Day Years [...] transplant documented in this encounter Care Teams Interior Design Principal Relationship Specialty Start Date End Date Momo Forbes PCP - General Family Practice 01/02/14 [facility] [address] [place] [address] Ingrid Santana, RN Registered Nurse Transplant 02/10/12 documented as of this encounter
--- OUTSIDE RECORDS SUMMARY | 2022-05-28 11:23 | XMS_ITS | Encounter Summary ---
:1950 Author Organization [place] Address [address] [place] [address] Care Team Providers Name Role Phone Ingrid Santana RN Unavailable Unavailable Momo Forbes Primary Care Provider Encounter Details Date Type Department Care Team Description 03/15/2014 Hospital Encounter [facility] Susy Cole, Lymphocele Unit 2A [facility] [address] [place] [phone] [place], [place] [address] (Wo rk) Social History Tobacco Use Types [...] until healed, wash daily with antibacterial soap. [facility] INTERVENTIONAL RADIOLOGY DEPARTMENT Procedure Physician Andrea Can Date of procedure Telephone numbers: [phone] Tuesday-Tuesday 8:00 am to 4:30 pm [phone] After 4:30 pm Tuesday-Tuesday, Weekends & Holidays. Ask for the Interventional Radiologist farm service consultant. Someone is available 24 hours/day [facility] toll free number: Tuesday-Tuesday 8:00 [...] CCRN March 15, 2014 9:20 AM Pager: [phone] [facility] - 03/15/2014 8:58 AM CDT Discussed order with Dr Merchant today. He would like drain placement if the fluid appears thin. If itappears to be a hematoma then aspiration only. D/w Drea resident and IR staff doing the case. Thanks [facility] ONCOLOGY TRANSPLANT NETWORK MANAGER ([phone]) Jeanette Lopez RN - 03/15/2014 8:14 AM CDT Prepped and consented, INR 1.1 FSBS is 219 documented in this encounter Procedure Notes Drea Glasgow MD - 03/15/2014 9:23 AM CDT Interventional Radiology Brief Post Procedure Note Pre Procedure Diagnosis: perinephric fluid collection Post Procedure Diagnosis: Same Procedure: Aspiration of RLQ fluid collection over the tranplant kidney Proceduralist: Drea Glasgow MD, Andrea Gibbons PA-C Rug Underlay Machine Operator: None Time Out: Prior to the [...] CDT Varvara A Douglas MD LAB - [facility] POCT Performing Organization Address City/State/ZIP [...] Dr. Yossi Cox Resident: Dr. Drea Glasgow Rug Underlay Machine Operator: Andrea Gibbons PA-C. Medications: 1% lidocaine [...] Dr. Yossi Cox Resident: Dr. Drea Glasgow Rug Underlay Machine Operator: Andrea Gibbons PA-C. Medications: 1% lidocaine [...] Component Value Ref Test Analysis Performed At [facility] Range Method Time Signature Specimen Aspirate [facility]ITY [facility] Gram Stain Many PMNs seen [facility] No organisms seen MICROBIOLOGY Micro Report FINAL [facility] Status 03/15/2014 MICROBIOLOGY Specimen Anatomical Collection Method Collection Time Receive d Time (Source) Location / / Volume Laterality 03/15/2014 9:05 AM 4 9:59 CDT AM CDT Celina Cole MD LAB - MICRO GENERAL ORDERABL ES Performing Organization Address City/[facility] Phon e Number [address] LABS [facility] MICROBIOLOGY (ABNORMAL) Fluid Culture (03/15/2014 9:05 AM CDT) Component Value Ref Test Analysis Performed At [facility] Range Method Time Signature Specimen Aspirate [facility] Description [facility] LABS Culture Micro Light growth Coagulase negat jo Staphylococcus Susceptibility testing not [facility] routinely done MICROBIOLOGY (A) Micro Report FINAL 03/18/2014 [facility] Status MICROBIOLOGY Specimen Anatomical Collection Method Collection Time Receive d Time (Source) Location / / Volume Laterality Fluid specimen SPECIMEN OBTAINED 03/15/2014 9:05 AM 9:59 (specimen) BY ASPIRATION / CDT AM CDT Unknown Celina Cole MD LAB - MICRO GENERAL ORDERABL ES Performing Organization Address City/[facility] Code Phon e Number [address] LABS [facility] MICROBIOLOGY Triglyceride Fluid (03/15/2014 9:05 AM CDT) [facility] Method Time Signature Triglyceride Aspirate [facility] Fluid Source PERINEPHRIC [facility] LABS Triglyceride 94 mg/dL [facility] Fluid [facility] LABS Comment: No reference ranges have been [...] Phon e Number [facility] [address] [place], [place] [phone] [place] [address] LABS Cell count with differential fluid (03/15/2014 9:05 AM CDT) Component Value Ref Test Analysis Performed At [facility] gist Range Method Time Signature Body Fluid Aspirate [facility] Analysis Source PERINEPHRIC [facility] LABS Color Fluid Brown [facility] LABS Appearance Turbid [facility] Fluid [facility] LABS RBC Fluid << Do Not /uL [facility] Report >> [facility] LABS WBC Fluid [id number] /uL [facility] LABS % Neutrophils 97 % [facility] Fluid [facility] LABS % Lymphocytes 2 % [facility] Fluid [facility] LABS % Eosinophils 1 % [facility] Fluid [facility] LABS Specimen Anatomical Collection Method Collection Time Receive d Time (Source) Location / / Volume Laterality SPECIMEN OBTAINED 03/15/2014 9:05 AM 02/20 9:56 BY ASPIRATION / CDT AM CDT Unknown Celina Cole MD LAB - BODY FLUIDS ORDERABLES Performing Organization Address City/[facility]/ZIP Code Phon e Number [facility] [address] LABS Lactate dehydrogenase fluid (03/15/2014 9:05 AM CDT) Component Value Ref Test Analysis Performed At [facility] Range Method Time Signature LD Fluid Source Aspirate [facility] LABS [...] - BODY FLUIDS ORDERABLES Performing Organization Address City/[facility]/ZIP Code Phon e Number [facility] [address] [place], [place] [phone] [place] [address] LABS Creatinine fluid (03/15/2014 9:05 AM CDT) Patholo gist Method Time Signature Creatinine Aspirate [facility] Fluid Source PERINEPHRIC [facility] LABS Creatinine 1.5 mg/dL [facility] Fluid [facility] LABS Comment: No reference ranges have been [...] - BODY FLUIDS ORDERABLES Performing Organization Address City/[facility]/ZIP Code Phon e Number [phone] [place] [address] LABS INR point of care (03/15/2014 8:06 [...] Organization Address City/[facility]/ZIP Code Phon e Number [facility] [...] Jeanette Lopez, BOGDAN) Routine, 3 g, Intravenous, PRE-OP/PRE-CA OCEDURE, Starting on Tue03/15/14 at 0734, For [...] Intra-procedure documented in this encounter Care Teams Upholstery Department Supervisor Relationship Specialty Start Date End Date Momo Forbes PCP - General Family Practice 01/02/14 [facility] [address] [place] [address] Ingrid Santana, RN Registered Nurse Transplant 02/10/12 documented as of this encounter
--- OUTSIDE RECORDS SUMMARY | 2022-05-28 11:23 | XMS_ITS | Encounter Summary ---
:1950 Author Organization [place] Address [address] [place] [address] Care Team Providers Name Role Phone Ingrid Santana RN Unavailable Unavailable Momo Forbes Primary Care Provider Encounter Details Date Type Department Care Team Description 03/11/2014 Anesthesia Event [facility] Aly Esquivel MD PeriOp Services 420 [facility] 500 [facility] 294 [place] [address] [place] [address] [phone] (Wo rk) Anesthesia Record Procedure Summary Procedure [...] benefits and alternatives discussed with: patient or solar sales representative. Possibility of blood products discussed. [...] filedocumented in this encounter Care Teams Motion Study Technician Relationship Specialty Start Date End Date Momo Forbes PCP - General Family Practice 01/02/14 [facility] [address] [place] [address] Ingrid Santana, RN Registered Nurse Transplant 02/10/12 documented as of this encounter
--- OUTSIDE RECORDS SUMMARY | 2022-05-28 11:23 | XMS_ITS | Encounter Summary ---
:1950 Author Organization [place] Address [address] [place] [address]. [place] [address] Care Team Providers Name Role Phone Ingrid Santana RN Unavailable Unavailable Momo Forbes Primary Care Provider Encounter Details Date Type Department Care Team Description 03/18/2014 Orders Only Nephrology Shiva Kahn RN -donor kidney 2nd Floor, Clinic 2A [facility] transplant recipient Tommy Ruizteen [address] [place] [address] [place] [phone] Social History Tobacco Use Types Packs/Day Years [...] documented in this encounter Care Teams Medical Van Driver Relationship Specialty Start Date End Date Momo Forbes PCP - General Family Practice 01/02/14 [facility] [address] [place] [address] Ingrid Santana, RN Registered Nurse Transplant 02/10/12 documented as of this encounter
--- OUTSIDE RECORDS SUMMARY | 2022-05-28 11:23 | XMS_ITS | Encounter Summary ---
:1950 Author Organization [place] Address [address] [place] [address]. 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 HIGGINS truck terminal manager (current) use of anticoagulant s [place] [address] [place] [phone] Social History Tobacco Use Types Packs/Day Years [...] for long-term (current) use of other medications care home (current) use of anticoagulant s Long-term (current) use of anticoagulant s documented in this encounter Care Teams Glass Production Machine Operator Relationship Specialty Start Date End Date Momo Forbes PCP - General Family Practice 01/02/14 [facility] [address] [place] [address] Ingrid Santana, RN Registered Nurse Transplant 02/10/12 documented as of this encounter
--- OUTSIDE RECORDS SUMMARY | 2022-05-28 11:24 | XMS_ITS | Encounter Summary ---
:1950 Author Organization [place] Address [facility] [place] [address] Care Team Providers Name Role Phone Ingrid Santana RN Unavailable Unavailable Momo Frobes Primary Care Provider Reason for Visit Reason Comments Eval/Assessment LBA Encounter Details Date Type Department Care Team Description 02/12/2014 Infusion Therapy Specialty Infusion Finger, Migel Mac y replaced by Visit and Procedure MD Nathan transplant (Primary Center [address] [place] [address] Dx) [facility] 19 5 n [facility] 2nd Floor [address] [phone] [place], [place] (Work) [phone] Social History Tobacco Use [...] Dear Diego Guthrie Thank you for choosing [facility] Specialty Infusion [facility] Procedure Center ([facility]) for your transplant cares. The following information is a summary of our appointment as well as important reminders. Additional information: We will see you on for labs & assessment. We look forward in seeing you on your next appointment here at [facility]. Please don???t hesitate to callus at [phone] to reschedule any of your appointments or to speak with one of the [facility] registered nurses. It was a pleasure taking care of you today. Sincerely, Gladis Olvera, BOGDAN [facility] Specialty Infusion [facility] Procedure Center [facility] - [address] [place] [address] January 2014Tuesday 1 2 3 4 5 6 7 8 9 10 11 12 13 14 Admission 12:55 PM Migel Merchant MD Unit 7A [facility] (Discharge: 02/08/2014) XR CHEST 2 VIEWS 1:55 PM (10 min.) Uuxr1 [facility], Radiology TRANSPLANT KIDNEY RECIPIENT DONOR 4:00 PM Migel Merchant MD UU OR XR CHEST PORT 2 VIEWS 11:10 PM (15 min.) Uuxrph1 [facility], Radiology 15 US RENAL TRANSPLANT 7:50 AM (50 min.) Uuus2 [facility], Ultrasound 16 IP EVALUATION 6:00 AM (60 min.) Angela Wilder, PT [facility], Physical Therapy UU TRANSPLANT MEDICATIONS 11:00 AM (120 min.) Josseline Almendarez, BOGDAN [facility], Patient Learning [place] UU TRANSPLANT FOLLOW-UP CARE 1:00 PM (120 min.) Josseline Almendarez RN [facility], Patient Learning [place] ECH LIMITED 3:35 PM (60 min.) Uuechipr1 [facility], Echocardiography 17 IP TREATMENT 5:30 AM (30 min.) Roderick Lawson, PT [facility], Physical Therapy 18 IP TREATMENT 5:30 AM (30 min.) Yesenia Rodriguez, PT [facility], Physical Therapy 19 IP TREATMENT 5:30 AM (30 min.) Reina Kenny, PT [facility], Physical Therapy US RENAL 11:15 AM (60 min.) Uuus2 [facility], Ultrasound 20 IP TREATMENT 5:30 AM (30 min.) Reina Kenny, PT [facility], Physical Therapy UU TRANSPLANT MEDICATIONS 11:00 AM (120 min.) Em Mohan RN [facility] Patient Learning [place] 21 [facility] NEW TRANSPLANT 7:00 AM (360 min.) [facility] Sipc Chair 9 Specialty Infusion and Procedure Center 22 [facility] NEW TRANSPLANT 7:00 AM (360 min.) [facility] Sipc Chair 11 Specialty Infusion and Procedure Center 23 [facility] NEW TRANSPLANT 7:00 AM (360 min.) [facility] Sip Chair 12 Specialty Infusion and Procedure Center [facility] KIDNEY TX DISCHARGE 9:00 AM (30 min.) Kaitlynn Leon MD Specialty Infusion and Procedure Center US RENAL TRANSPLANT 2:00 PM (60 min.) [address] 24 [facility] NEW TRANSPLANT 7:00 AM (360 min.) [facility] Sipc Bed 14 Specialty Infusion and Procedure Center [facility] SIPC RETURN 9:00 AM (30 min.) Kaitlynn Leon MD [facility]fusion [facility] Procedure Center 25 26 [facility] SIPC PROCEDURE 7:00 AM (60 min.) [facility] Sipc Chair 9 Specialty Infusion and Procedure Center [facility] SIPC RETURN 8:00 AM (30 min.) Kaitlynn Leon MD Specialty Infusion [facility] Procedure Center 27 28 29 30 P NEW 9:00 AM (30 min.) [facility] Cvc Consult [facility] Physicians Heart [facility] KIDNEY POST OP 1:45 PM (15 min.) [...] 4:27 PM CDT Diego Guthrie came to [facility] today for a lab and assess following a Kidney transplant on 02/02/14. Discharge date: 02/08/14 sales and marketing coordinator: Leandro Kahn Phone number patient can be reached at: [phone] Physical Assessment: See physical assessment located under Document Flowsheets. Incision site: with modesta & slight ecchymosis. Dry dressing changed. Lines: MARGARET drain to bulb suction is draining sero sanguinous fluid. Continues to drain more than 30 ml/day. Pt will have Tuesday off from [facility] and will return for LBA. Gibbs: [...] of care for today: Pt presented to [facility] for labs and assessment. Labs drawn, reviewed with Dr. Leon. Oral phosphorus tablets ordered. Coumadin dose decreased to 5 mg every evening. Pt will have Tuesday off, return and will start with [facility] Nursing on TuesdayFebruary 15. Pt's MARGARET remains [...] Discharge Plan Pt will follow up with [facility] on 02/14 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/Sleeve Setter Lockstitch verbalized understanding, all questions answered: YES Discharged [...] Signature INR 2.64 (H) 0.86 - 1.14 [facility] Specimen Anatomical Collection Method Collection Time Receive d Time (Source) Location / / Volume Laterality Blood specimen 02/12/2014 7:41 AM 014 7:43 (specimen) CDT AM CDT Kaitlynn Leon MD LAB - BLOOD ORDERABLES Performing Organization Address City/State/ZIP Code Phon e Number [facility] [address] [place] [address] [facility] Tacrolimus level (02/12/2014 7:41 AM CDT) [facility] gist Method Time Signature Tacrolimus Last 02/11/14 [facility] Dose 1900 [facility] LAB[facility] Tacrolimus 8.4 5.0 - [facility] Level 15.0 ug/L [facility] Comment: Tacrolimus Reference Range Kidney Transplant [...] Address City/State/ZIP Code Phon e Number [address] [address] [place] [facility] (ABNORMAL) CBC with platelets differential (02/12/2014 7:41 AM CDT) [facility] gist Method Time Signature WBC 5.0 4.0 - [facility] 11.0 [place] 10e9/L [place] LABS RBC Count 2.41 (L) 4.4 - 5.9 [facility] 10e12/L [facility] Hemoglobin 7.4 (L) 13.3 - [facility] 17.7 g/dL [facility] Hematocrit 22.3 (L) 40.0 - [facility] 53.0 % [facility] MCV 93 78 - 100 [facility] fl [facility] MCH 30.7 26.5 - [facility] 33.0 pg [facility] MCHC 33.2 31.5 - [facility] 36.5 g/dL [facility] RDW 14.5 10.0 - [facility] 15.0 % [facility] Platelet Count 95 (L) 150 - 450 [facility] 10e9/L [facility] Diff Method Automated [facility] Method [facility] % Neutrophils 85.2 % [facility] % Lymphocytes 5.6 % [facility] % Monocytes 4.6 % [facility] % Eosinophils 4.2 % [facility] % Basophils 0.2 % [facility] % Immature 0.2 % [facility] Granulocytes [facility] Absolute 4.3 1.6 - 8.3 [facility] Neutrophil 10e9/L [facility] Absolute 0.3 (L) 0.8 - 5.3 [facility] Lymphocytes 10e9/L [facility] Absolute 0.2 0.0 - 1.3 [facility] Monocytes 10e9/L [facility] Absolute 0.2 0.0 - 0.7 [facility] Eosinophils 10e9/L [facility] Absolute 0.0 0.0 - 0.2 [facility] Basophils 10e9/L [facility] Abs Immature 0.0 0 - 0.4 [facility] Granulocytes 10e9/L [facility] Specimen Anatomical Collection Method Collection Time Receive d Time (Source) Location / / Volume Laterality Blood specimen 02/12/2014 7:41 AM 014 7:43 (specimen) CDT AM CDT Kaitlynn Leon MD LAB - BLOOD ORDERABLES Performing Organization Address City/State/ZIP Code Phon e Number [facility] [address] LABS (ABNORMAL) Phosphorus (02/12/2014 7:41 AM CDT) athologist Signature Phosphorus 1.7 (L) 2.5 - 4.5 [facility] mg/dL [place] [facility] Specimen Anatomical Collection Method Collection Time Receive d Time (Source) Location / / Volume Laterality Blood specimen 02/12/2014 7:41 AM 014 7:43 (specimen) CDT AM CDT Kaitlynn Leon MD LAB - BLOOD ORDERABLES Performing Organization Address City/State/ZIP Code Phon e Number [facility] [address] LABS Magnesium (02/12/2014 7:41 AM CDT) athologist Signature Magnesium 1.8 1.6 - 2.3 [facility] mg/dL [place] LABS Specimen Anatomical Collection Method Collection Time Receive d Time (Source) Location / / Volume Laterality Blood specimen 02/12/2014 7:41 AM 014 7:43 (specimen) CDT AM CDT Kaitlynn Leon MD LAB - BLOOD ORDERABLES Performing Organization Address City/State/ZIP Code Phon e Number [facility] [address] [place], [place] [phone] [place] [address] LABS (ABNORMAL) Basic metabolic panel (02/12/2014 7:41 AM CDT) [facility] gist Method Time Signature Sodium 142 133 - 144 [facility] mmol/L [facility] LABS Potassium 4.9 3.4 - 5.3 [facility] mmol/L [facility]S Chloride 113 (H) 94 - 109 [facility] mmol/L [facility] LABS Carbon Dioxide 21 20 - 32 [facility] mmol/L [facility]S Anion Gap 9 6 - 17 [facility] mmol/L [facility]S Glucose 127 (H) 60 - 99 [facility] mg/dL [facility]S Urea Nitrogen 24 7 - 30 [facility] mg/dL [facility] LABS Creatinine 1.92 (H) 0.66 - [facility] 1.25 mg/dL [facility] LABS GFR Estimate 36 (L) >60 [facility] mL/min/1.7 [place] [address] CAMPUS LABS GFR Estimate If 43 (L) >60 [facility] Black mL/min/1.7 [place] [address] CAMPUS LABS Calcium 8.9 8.5 - 10.4 [facility] mg/dL [facility] LABS Specimen Anatomical Collection Method Collection Time Receive d Time (Source) Location / / Volume Laterality Blood specimen 02/12/2014 7:41 AM 014 7:43 (specimen) CDT AM CDT Kaitlynn Leon MD LAB - BLOOD ORDERABLES Performing Organization Address City/State/ZIP Code Phon e Number [facility] [address] [place] [address] [facility] LABS documented in this encounter Visit Diagnoses [...] after. documented in this encounter Care Teams Camera Assembler Relationship Specialty Start Date End Date Momo Forbes PCP - General Family Practice 01/02/14 [facility] [address] [place] [phone] Ingrid Santana, RN Registered Nurse Transplant 02/10/12 documented as of this encounter
--- OUTSIDE RECORDS SUMMARY | 2022-05-28 11:24 | XMS_ITS | Encounter Summary ---
:1950 Author Organization [place] Address [facility] [place] [address] Care Team Providers Name Role Phone Ingrid Santana RN Unavailable Unavailable Momo Forbes Primary Care Provider Encounter Details Date Type Department Care Team Description 02/11/2014 Radiant Appointment [facility] 1st Floor, Clinic 1D [place], [place] [address] Social History Tobacco Use Types Packs/Day Years [...] on filedocumented in this encounter Care Teams Ring Sewer Relationship Specialty Start Date End Date Momo Forbes PCP - General Family Practice 01/02/14 [facility] [address] [place] [address] Ingrid Santana, RN Registered Nurse Transplant 02/10/12 documented as of this encounter
--- OUTSIDE RECORDS SUMMARY | 2022-05-28 11:24 | XMS_ITS | Encounter Summary ---
:1950 Author Organization [place] Address [address] [place] [address]. 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
--- OUTSIDE RECORDS SUMMARY | 2022-05-28 11:24 | XMS_ITS | Encounter Summary ---
:1950 Author Organization [place] Address [facility] [place] [address] Care Team Providers Name Role Phone Ingrid Santana RN Unavailable Unavailable Momo Forbes Primary Care Provider Reason for Visit Reason Comments Eval/Assessment LBA Encounter Details Date Type Department Care Team Description 02/11/2014 Office Visit Specialty Infusion Kaitlynn Leon, Complica tion of transplanted kidney (Primary Dx); and Procedure Center Anemia; Sanders-Wangfelisa [facility] HTN (hy pertension); [facility] Immunosuppression (H); 2nd Floor [address] Hypophosphatemia 6 [facility] [address] [place], [place] [phone] [address] (Work) [phone] Social History Tobacco Use Types Packs/Day Years [...] Years of Education: 14 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 Discharge: 02/08/2014 Using Medcard: Yes Med review: Went over all meds and dosing with patient and Tete. Went over Prograf and Cellcept side effects. Medication questions/concerns: Patient requested that we transfer 4 rx's (to profile) from local pharmacy to us here. 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 Using medbox: Yes Viewed DVD: Didn't bring up Pain: #2-3, feels good, rarely using Oxycodone Other Concerns: none No further questions for this pharmacist. Yi Londono [facility] [phone] documented in this encounter Plan of Treatment [...] with the findings. AUBREY BAIG MD Kaitlynn Leno MD IMG US ORDERABLES (ABNORMAL) INR (02/11/2014 9:30 AM CDT) athologist Signature INR 2.28 (H) 0.86 - 1.14 [facility] LABS Specimen Anatomical Collection Method Collection Time Receive d Time (Source) Location / / Volume Laterality 02/11/2014 9:30 AM 4 9:41 CDT AM CDT Kaitlynn Leon MD LAB - BLOOD ORDERABLES Performing Organization Address City/State/ZIP Code Phon e Number [phone] [place] [address] LABS documented in this encounter Visit Diagnoses Diagnosis Complication of transplanted kidney - Pr imary Complications of transplanted kidney Anemia Anemia, unspecified HTN (hypertension) Unspecified essential hypertension Immunosuppression (H) Unspecified disorder of immune mechanism Hypophosphatemia Disorders of phosphorus metabolism documented in this encounter Care Teams Defense Analyst Relationship Specialty Start Date End Date Momo Forbes PCP - General Family Practice 01/02/14 [facility] [address] [place] [address] Ingrid Santana, RN Registered Nurse Transplant 02/10/12 documented as of this encounter
--- OUTSIDE RECORDS SUMMARY | 2022-05-28 11:24 | XMS_ITS | Encounter Summary ---
:1950 Author Organization [place] Address [facility] [place] [address] Care Team Providers Name Role Phone Ingrid Santana RN Unavailable Unavailable Momo Forbes Primary Care Provider Reason for Visit Reason Comments Eval/Assessment LBA Encounter Details Date Type Department Care Team Description 02/14/2014 Office Visit Specialty Infusion Edward, Naim S, Kidney r eplaced by transplant (Primary Dx); and Procedure Center Immunosuppression (H); Sanders-Akila [facility] Hyperka lemia; [facility] Hypophosphatemia; 2nd Floor [address] Atrial fibrillation (H); [address] [place], [place] Anemia; [place] [address] HTN (hypertension) [place], [place] [phone] [address] (Work) [phone] Social History Tobacco Use Types Packs/Day Years [...] Years of Education: 14 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
--- OUTSIDE RECORDS SUMMARY | 2022-05-28 11:24 | XMS_ITS | Encounter Summary ---
:1950 Author Organization [place] Address [address] [place] [address]. [place] [address] Care Team Providers Name Role Phone Ingrid Santana RN Unavailable Unavailable Momo Forbes Primary Care Provider Reason for Visit Reason Onset Date Comments Refill Request 02/11/2014 Encounter Details Date Type Department Care Team Description 02/11/2014 Refill Nephrology Isa Ly RN Refill Request 2nd Floor, Clinic 2A [place] [phone] Social History Tobacco Use Types Packs/Day [...] transplant documented in this encounter Care Teams Museum Assistant Relationship Specialty Start Date End Date Momo Forbes PCP - General Family Practice 01/02/14 [facility] [address] [place] [address] Ingrid Santana RN Registered Nurse Transplant 6/21/12 2/10/ 16 documented as of this encounter
--- OUTSIDE RECORDS SUMMARY | 2022-05-28 11:24 | XMS_ITS | Encounter Summary ---
:1950 Author Organization [place] Address [address] [place] [address]. [place] [address] Care Team Providers Name Role Phone Ingrid Santana RN Unavailable Unavailable Momo Forbes Primary Care Provider Reason for Visit Reason Onset Date Comments Refill Request 02/15/2014 Encounter Details Date Type Department Care Team Description 02/15/2014 Refill Nephrology Shiva Kahn RN Refill Request 2nd Floor, Clinic 2A [facility] Sanders [place]steen [address] [facility] [place], [place] [phone] [place] [address] [place] [phone] Social History Tobacco Use Types Packs/Day [...] on filedocumented in this encounter Care Teams Forensics Team Director Relationship Specialty Start Date End Date Momo Forbes PCP - General Family Practice 01/02/14 [facility] [address] [place] [address] Ingrid Santana, RN Registered Nurse Transplant 02/10/12 documented as of this encounter
--- OUTSIDE RECORDS SUMMARY | 2022-05-28 11:24 | XMS_ITS | Encounter Summary ---
:1950 Author Organization [place] Address [facility] [place] [address] Care Team Providers Name Role Phone Ingrid Santana RN Unavailable Unavailable Momo Forbes Primary Care Provider Reason for Visit Reason Comments Eval/Assessment s/p kidney transplant 8days ago Encounter Details Date Type Department Care Team Description 02/10/2014 Infusion Therapy Specialty Infusion Finger, Migel Mac y replaced by Visit and Procedure MD Nathan transplant (Primary Center [address] [place] [address] Dx) 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 Discharge date: 02/08/14 missionary coordinator: Leandro Kahn RN Phone number patient can be reached at: [phone] (girlfriend's cell) Physical Assessment: See physical assessment located under Document Flowsheets. Incision site: stapled, leaking tiny amount clear pink/pale yellow fluid from mid incision (1.5inch area on dressing from 3hours ago) covered with ABD Lines: MARGARET rlq; 30cc out last tamara; 10cc out overnite;; lite pink clear fluid Gibbs: na states is not having voiding difficulty Urine clarity: not asked Hydration: states he [id number] water yesterday but does not like that [...] Discharge Plan Pt will follow up with [facility] lab/assess in am 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/Fisheries Specialist verbalized understanding, all questions answered: YES [...] Results Tacrolimus level (02/10/2014 8:37 AM CDT) [facility] Method Time Signature Tacrolimus Not Provided [facility] Last Dose [facility] LABS Tacrolimus 6.8 5.0 - [facility] Level 15.0 ug/L [place] [...] Phon e Number [facility] [address] [place], [place] [phone] [place] [address] LABS (ABNORMAL) CBC with platelets differential (02/10/2014 8:37 AM CDT) Component Value Ref Test Analysis Performed At [facility] gist Range Method Time Signature WBC 5.5 4.0 - [facility] 11.0 [place] LABS 10e9/L RBC Count 2.53 (L) 4.4 [...] Code Phon e Number SYSMEX [id number] DIFFERENTIAL [facility] LABS (ABNORMAL) Phosphorus (02/10/2014 8:37 [...] [facility]/ZIP Code Phon e Number [facility] [address] [place], [place] [phone] [place] [address] LABS Magnesium (02/10/2014 8:37 AM CDT) P athologist Signature Magnesium 2.0 1.6 - 2.3 [facility] mg/dL CAMPUS LABS Specimen Anatomical Collection Method Collection Time Receive d Time (Source) Location / / Volume Laterality Blood specimen 02/10/2014 8:37 AM 014 8:38 (specimen) CDT AM CDT Migel Merchant MD LAB - BLOOD ORDERABLES Performing Organization Address City/[facility] Code Phon e Number [facility] [address] [place], [place] [phone] [place] [address] LABS (ABNORMAL) Basic metabolic panel (02/10/2014 8:37 AM CDT) Patholo gist Method Time Signature Sodium 144 133 - 144 [facility] mmol/L [facility] LABS Potassium 4.8 3.4 - 5.3 [facility] mmol/L [facility] LABS Chloride 111 (H) 94 - 109 [facility] mmol/L [facility] LABS Carbon Dioxide 22 20 - 32 [facility] mmol/L [facility] LABS Anion Gap 10 6 - 17 [facility] mmol/L [facility] LABS Glucose 128 (H) 60 - 99 [facility] mg/dL [facility] LABS Urea Nitrogen 34 (H) 7 - 30 [facility] mg/dL [facility] LABS Creatinine 1.80 (H) 0.66 - [facility] 1.25 mg/dL [facility] LABS GFR Estimate 38 (L) >60 [facility] mL/min/1.7 [place] [facility] LABS GFR Estimate If 46 (L) >60 [facility] Black mL/min/1.7 [place] [facility]2 [facility]AMPUS LABS Calcium 9.1 8.5 - 10.4 [facility] mg/dL [facility] LABS Specimen Anatomical Collection Method Collection Time Receive d Time (Source) Location / / Volume Laterality Blood specimen 02/10/2014 8:37 AM 014 8:38 (specimen) CDT AM CDT Migel Merchant MD LAB - BLOOD ORDERABLES Performing Organization Address City/State/ZIP Code Phon e Number [facility] [address] [place] [address] [facility] LABS documented in this encounter Visit Diagnoses Diagnosis Kidney replaced by transplant - Primary documented in this encounter Care Teams Trestle Builder Relationship Specialty Start Date End Date Momo Forbes PCP - General Family Practice 01/02/14 [facility] [address] [place] [address] Ingrid Santana, RN Registered Nurse Transplant 02/10/12 documented as of this encounter
--- OUTSIDE RECORDS SUMMARY | 2022-05-28 11:24 | XMS_ITS | Encounter Summary ---
:1950 Author Organization [place] Address [facility]0 [place] [address] Care Team Providers Name Role Phone Ingrid Santana RN Unavailable Unavailable Momo Forbes Primary Care Provider Reason for Visit Reason Comments Eval/Assessment LBA Encounter Details Date Type Department Care Team Description 02/11/2014 Infusion Therapy Specialty Infusion Finger, Migel Mac y replaced by Visit and Procedure MD Nathan transplant (Primary Center [address] [place] [address] Dx) [facility] 19 5 n [facility] 2nd Floor [address] [phone] [place], [place] (Work) [phone] Social History Tobacco Use [...] Dear Diego Guthrie Thank you for choosing [facility] ([facility] [...] regarding the result at your appointment in [facility] tomorrow. We look forward in seeing you on your next appointment here at [facility]. Please don???t hesitate to callus at [phone] to reschedule any of your appointments or to speak with one of the [facility] registered nurses. It was a pleasure taking care of you today. Sincerely, Gladis Olvera, BOGDAN [facility] [address] [place] [address] documented in this encounter Progress Notes Gladis Olvera, RN - 02/11/2014 8:43 AM CDT Diego Guthrie came to [facility] today for a lab and assess following a Kidney transplant on 02/02/14. Discharge date: 02/08/14 change coordinator: Leandro Kahn Phone number patient can be reached at: [phone] Physical Assessment: See physical assessment located under Document Flowsheets. Incision site: Dry dressing with modesta. Dressing changed. Small amt oozing, Small amt ecchymosis. Pt instructed on signs/symptoms of infection. Some swelling under incision, pt has known hematoma andwill have a renal ultrasound today at 2pm. Lines: MARGARET drain to bulb suction, serosanguinous drainage. 20 ml at [facility] appointment today. Gibbs: n/a Urine clarity: clear per patient report Hydration: discussed drinking 2-3 L daily Nutrition: Pt states appetite is improving Last BM: 02/10/14 evening Pain: 2 at rest, 5 with activity. Pain adequately controlled with home medications Laboratory tests: Standard labs drawn. Plan of care for today: Pt presents to [facility] for Labs & Assessment following Kid Txp on 02/02/14. Pt's creatinine up to 1.97 today, but ok per Dr. Leon considering the complications with transplant. Hgb 7.4 and pt c/o slight fatigue. Discussed with Dr. Leon and will hold off on a transfusion for now, but will continue to monitor hgb at [facility] appointments over the next 2 days. INR 2.23, EKG obtained and pt found to be in Normal Sinus Rhythm. Pt will remain on coumadin for now and will follow up with a joint maker machine near [facility]. Continue daily INRs while pt is coming to [facility]. Pt's MARGARET continues to drain more than [...] will follow up with [facility] tomorrow. 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/Recorder Helper Seismograph verbalized understanding, all questions answered: YES Discharged [...] Results Tacrolimus level (02/11/2014 7:40 AM CDT) [facility] gist Method Time Signature Tacrolimus Last 02/10/14 [facility] Dose 2000 [facility]S Tacrolimus 12.2 5.0 - [facility] Level 15.0 ug/L THE [...] e Number [facility] [address] [place], [place] [id number] [place] [address] LABS (ABNORMAL) CBC with platelets differential (02/11/2014 7:40 AM CDT) [facility] gist Method Time Signature WBC 4.4 4.0 - [facility] 11.0 UNIV[facility]ITY 10e9/L [place] [facility] RBC Count 2.39 (L) 4.4 - 5.9 [facility] 10e12/L [facility]S Hemoglobin 7.4 (L) 13.3 - [facility] 17.7 g/dL [facility]S Hematocrit 22.1 (L) 40.0 - [facility] 53.0 % [facility]S MCV 93 78 - 100 [facility] fl [facility] LABS MCH 31.0 26.5 - [facility] 33.0 pg [facility] LABS MCHC 33.5 31.5 - [facility] 36.5 g/dL [facility]S RDW 14.7 10.0 - [facility] 15.0 % [facility]S Platelet Count 83 (L) 150 - 450 [facility] 10e9/L [facility] LABS Diff Method Automated [facility] Method [facility] LABS % Neutrophils 80.4 % [facility] LABS % Lymphocytes 8.2 % [facility] LABS % Monocytes 5.2 % [facility] LABS % Eosinophils 5.7 % [facility] LAB[facility] % Basophils 0.0 % [facility] LAB[facility] % Immature 0.5 % [facility] Granulocytes [facility] LABS Absolute 3.5 1.6 - 8.3 [facility] [...] 0.0 0 - 0.4 [facility] Granulocytes 10e9/L [facility] Specimen Anatomical Collection Method Collection Time Receive d Time (Source) Location / / Volume Laterality Blood specimen 02/11/2014 7:40 AM 014 7:41 (specimen) CDT AM CDT Kaitlynn Leon MD LAB - BLOOD ORDERABLES Performing Organization Address City/[facility]/ZIP Code Phon e Number [facility] [address] LABS (ABNORMAL) Phosphorus (02/11/2014 7:40 AM CDT) P athologist Signature Phosphorus 1.9 (L) 2.5 - 4.5 [facility] mg/dL [place] [facility] Specimen Anatomical Collection Method Collection Time Receive d Time (Source) Location / / Volume Laterality Blood specimen 02/11/2014 7:40 AM 014 7:41 (specimen) CDT AM CDT Kaitlynn Leon MD LAB - BLOOD ORDERABLES Performing Organization Address City/State/ZIP Code Phon e Number [facility] [address] LABS Magnesium (02/11/2014 7:40 AM CDT) P athologist Signature Magnesium 1.9 1.6 - 2.3 [facility] mg/dL CAMPUS LABS Specimen Anatomical Collection Method Collection Time Receive d Time (Source) Location / / Volume Laterality Blood specimen 02/11/2014 7:40 AM 014 7:41 (specimen) CDT AM CDT Kaitlynn Leon MD LAB - BLOOD ORDERABLES Performing Organization Address City/State/ZIP Code Phon e Number [facility] [address] [place], [place] [id number] [place] [address] LABS (ABNORMAL) Basic metabolic panel (02/11/2014 7:40 AM CDT) [facility] gist Method Time Signature Sodium 142 133 - 144 [facility] mmol/L [facility] LABS Potassium 5.4 (H) 3.4 - 5.3 [facility] mmol/L [facility] [place] [facility] Chloride 113 (H) 94 - 109 [facility] mmol/L [facility] LABS Carbon Dioxide 22 20 - 32 [facility] mmol/L [facility] LABS Anion Gap 8 6 - 17 [facility] mmol/L [facility]S Glucose 155 (H) 60 - 99 [facility] mg/dL [facility]S Urea Nitrogen 31 (H) 7 - 30 [facility] mg/dL [facility] LABS Creatinine 1.97 (H) 0.66 - [facility] 1.25 mg/dL [facility] LABS GFR Estimate 35 (L) >60 [facility] mL/min/1.7 [place] m2 [facility]AMPUS LABS GFR Estimate If 42 (L) >60 [facility] Black mL/min/1.7 [place] m2 [facility]AMPUS LABS Calcium 9.1 8.5 - 10.4 [facility] mg/dL [facility] LABS Specimen Anatomical Collection Method Collection Time Receive d Time (Source) Location / / Volume Laterality Blood specimen 02/11/2014 7:40 AM 014 7:41 (specimen) CDT AM CDT Kaitlynn Leon MD LAB - BLOOD ORDERABLES Performing Organization Address City/State/ZIP Code Phon e Number [id number] [place] [address] [facility] LABS documented in this encounter Visit Diagnoses Diagnosis Kidney replaced by transplant - Primary documented in this encounter Care Teams Coin Machine Supervisor Relationship Specialty Start Date End Date Momo Forbes PCP - General Family Practice 01/02/14 [facility] [address] [place] [address] Ingrid Santana, RN Registered Nurse Transplant 02/10/12 documented as of this encounter
--- OUTSIDE RECORDS SUMMARY | 2022-05-28 11:24 | XMS_ITS | Encounter Summary ---
:1950 Author Organization [place] Address [facility] [place] [address] Care Team Providers Name Role Phone Ingrid Santana RN Unavailable Unavailable Momo Forbes Primary Care Provider Reason for Visit Reason Comments Eval/Assessment LBA Encounter Details Date Type Department Care Team Description 02/09/2014 Infusion Therapy Specialty Infusion Finger, Migel Mac y replaced by transplant (Primary Dx); Visit and Procedure MD Nathan [facility] [address] [place] [address] [phone] [place], [place] (Work) [phone] Social History Tobacco [...] Dear Diego Guthrie Thank you for choosing [facility] ([facility]) for your transplant cares. The following [...] Bring Humulog Insulin Pen to your future [facility] appointments. 5) Return to [facility] tomorrow at 07:30 a.m We look forward in seeing you on your next appointment here at [facility]. Please don???t hesitate to callus at [phone] to reschedule any of your appointments or to speak with one of the [facility] registered nurses. It was a pleasure taking care of you today. Sincerely, MARC HERNADNEZ RN [facility] [address] [place] [address]. [place] [address] Coumadin Information: Keep Your Diet Steady Keep [...] 7:31 AM CDT Diego Guthrie came to [facility] today for a lab and assess following a Kidney transplant on 02/02/14. Discharge date: 02/08/14 business support coordinator: Leandro Kahn Phone number patient can be reached at: [phone] Physical Assessment: See physical assessment located under [...] 1L of NS today, d/c pt from [facility] post 1L NS, return to [facility] tomorrow for LBA, No change in [...] and Phone numbers to call with concenrs (business support coordinator, [address] and [facility]) Patient verbalized understanding and all questions answered. Drug level: Prograf level today reviewed with Dr Hernandes who gave orders to no change in dose. INR of 1.59 also reviewed w/Dr Hernandes who gave orders to increase Coumadin to 7.5mg QD. Patient was updated with this information and verbalized understanding. Discharge Plan Pt will follow up with [facility] tomorrow at 0730. Bring Humulog Insulin Pen to [facility] today (pt did not bring to today's appt). 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/Spinal Surgeon verbalized understanding, all questions answered: YES Discharged [...] Signature INR 1.59 (H) 0.86 - 1.14 [facility] LABS Specimen Anatomical Collection Method Collection Time Receive d Time (Source) Location / / Volume Laterality Blood specimen 02/09/2014 8:30 AM 014 (specimen) CDT 11:07 AM CDT Migel Merchant MD LAB - BLOOD ORDERABLES Performing Organization Address City/State/ZIP Code Phon e Number [facility] [address] [place] [address] [facility] LABS Tacrolimus level (02/09/2014 7:40 AM CDT) [facility] gist Method Time Signature Tacrolimus Not Provided [facility] Last Dose [facility] LABS Tacrolimus 8.0 5.0 - [facility] Level [...] Phon e Number [facility] [address] [place] [address] [facility] (ABNORMAL) CBC with platelets differential (02/09/2014 7:40 AM CDT) [facility] gist Method Time Signature WBC 5.8 4.0 - [facility] 11.0 UN[facility]ITY 10e9/L [facility]AMPUS LABS RBC Count 2.66 (L) 4.4 - 5.9 [facility] 10e12/L [facility] LABS Hemoglobin 8.2 (L) 13.3 - [facility] 17.7 g/dL [facility] LABS Hematocrit 24.4 (L) 40.0 - [facility] 53.0 % [facility] LABS MCV 92 78 - 100 [facility] fl [facility] LABS MCH 30.8 26.5 - [facility] 33.0 pg [facility] LABS MCHC 33.6 31.5 - [facility] 36.5 g/dL [facility] LABS RDW 14.6 10.0 - [facility] 15.0 % [facility] LABS Platelet Count 78 (L) 150 - 450 [facility] 10e9/L [facility] LABS Diff Method Automated [facility] Method [facility] LABS % Neutrophils 84.8 % [facility] LABS % Lymphocytes 5.2 % [facility] LABS % Monocytes 6.9 % [facility] LABS % Eosinophils 2.9 % [facility] % Basophils 0.0 % [facility] % Immature 0.2 % [facility] Granulocytes [facility] LABS Absolute 4.9 1.6 - 8.3 [facility] Neutrophil 10e9/L [facility] LABS Absolute 0.3 (L) 0.8 - 5.3 [facility] Lymphocytes 10e9/L [facility] LABS Absolute 0.4 0.0 - 1.3 [facility] Monocytes 10e9/L [facility] LABS Absolute 0.2 0.0 - 0.7 [facility] [...] Phon e Number [facility] [address] [place], [place] [id number] [place] [address] LABS (ABNORMAL) Phosphorus (02/09/2014 7:40 AM CDT) athologist Signature Phosphorus 2.0 (L) 2.5 - 4.5 [facility] UNIVERSITY mg/dL CAMPUS LABS Specimen Anatomical Collection Method Collection Time Receive d Time (Source) Location / / Volume Laterality Blood specimen 02/09/2014 7:40 AM 014 7:49 (specimen) CDT AM CDT Migel Merchant MD LAB - BLOOD ORDERABLES Performing Organization Address City/[facility] Code Phon e Number [facility] [address] LABS Magnesium (02/09/2014 7:40 AM CDT) athologist Signature Magnesium 1.9 1.6 - 2.3 [facility] [place] mg/dL CAMPUS LABS Specimen Anatomical Collection Method Collection Time Receive d Time (Source) Location / / Volume Laterality Blood specimen 02/09/2014 7:40 AM 014 7:49 (specimen) CDT AM CDT Migel Merchant MD LAB - BLOOD ORDERABLES Performing Organization Address City/State/ZIP Code Phon e Number [facility] [address] LABS (ABNORMAL) Basic metabolic panel (02/09/2014 7:40 AM CDT) [facility] Method Time Signature Sodium 145 (H) 133 - 144 [facility] mmol/L [facility] LABS Potassium 4.5 3.4 - 5.3 [facility] mmol/L [facility] LABS Chloride 110 (H) 94 - 109 [facility] mmol/L [facility] LABS Carbon Dioxide 24 20 - 32 [facility] mmol/L [facility] LABS Anion Gap 10 6 - 17 [facility] mmol/L [facility] LABS Glucose 137 (H) 60 - 99 [facility] mg/dL [facility] LABS Urea Nitrogen 48 (H) 7 - 30 [facility] mg/dL [facility] LABS Creatinine 2.02 (H) 0.66 - [facility] 1.25 mg/dL [facility] LABS GFR Estimate 34 (L) >60 [facility] mL/min/1.7 [place] m2 [facility]AMP[facility] LABS GFR Estimate If 41 (L) >60 [facility] Black mL/min/1.7 [place] m2 [facility]AMPUS LABS Calcium 9.2 8.5 - [...] Phon e Number [facility] [address] [place] [address] [facility] LABS documented in this encounter Visit Diagnoses [...] dose documented in this encounter Care Teams Press Writer Relationship Specialty Start Date End Date Momo Forbes PCP - General Family Practice 01/02/14 [facility] [address] [place] [address] Ingrid Santana, RN Registered Nurse Transplant 02/10/12 documented as of this encounter
--- OUTSIDE RECORDS SUMMARY | 2022-05-28 11:24 | XMS_ITS | Encounter Summary ---
:1950 Author Organization [place] Address [facility]0 [facility] [place] [address] Care Team Providers Name Role Phone Ingrid Santana RN Unavailable Unavailable Momo Forbes Primary Care Provider Reason for Visit Reason Onset Date Comments Refill Request 02/12/2014 clotrimazole Encounter Details Date Type Department Care Team Description 02/12/2014 Refill Nephrology Kaitlynn Leon MD Refill Request 2nd Floor, Clinic 2A [facility] (clotrimazole) [address] [phone] Social History Tobacco Use Types Packs/Day Years [...] Miscellaneous Notes Telephone Encounter - Lianne Braswell [facility] - 02/12/2014 8:50 AM CDT Last Fill Date: 02/08/14 Last Fill Quantity: 70 Last Office Visit: 02/11/14 Proactive request, and also requesting a new quantity for a one month supply. Thanks! Lianne Braswell, PharmD [facility] [phone] documented in this encounter Plan of Treatment Not on filedocumented as of this encounter Visit Diagnoses Diagnosis S/P kidney transplant Kidney replaced by transplant documented in this encounter Care Teams Gas Producer Relationship Specialty Start Date End Date Momo Forbes PCP - General Family Practice 01/02/14 [facility] [address] [place] [address] Ingrid Santana, RN Registered Nurse Transplant 02/10/12 documented as of this encounter
--- OUTSIDE RECORDS SUMMARY | 2022-05-28 11:24 | XMS_ITS | Encounter Summary ---
:1950 Author Organization [place] Address [facility] [place] [address] Care Team Providers Name Role Phone Ingrid Santana RN Unavailable Unavailable Momo Forbes Primary Care Provider Reason for Visit Reason Comments Eval/Assessment LABS, ASSESSMENT, EDUCATION AND DRESSING CHANGE. Encounter Details Date Type Department Care Team Description 02/14/2014 Infusion Therapy Specialty Infusion Kaitlynn Leon MD Kidney replaced by transplant (Primary D x); Visit and Procedure Center [facility] S/P kidney transplant [facility] [address] [phone] [place], [place] (Work) [phone] Social History Tobacco Use [...] 3:25 PM CDT Diego Guthrie came to [facility] today for a lab and assess following a Kidney transplant on 02/02/14. Discharge date: 02/08/14 medical staff credentialing coordinator: Leandro [place] Phone number patient can be reached at: [phone] Physical Assessment: See physical assessment located under [...] Tuesday. 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/Call Out Operator verbalized understanding, all questions answered: YES [...] Signature INR 2.29 (H) 0.86 - 1.14 [facility] LABS Specimen Anatomical Collection Method Collection Time Receive d Time (Source) Location / / Volume Laterality Blood specimen 02/14/2014 7:51 AM 014 7:58 (specimen) CDT AM CDT Kaitlynn Leon MD LAB - BLOOD ORDERABLES Performing Organization Address City/State/ZIP Code Phon e Number [facility] [address] [place], [place] [phone] [place] [address] LABS Tacrolimus level (02/14/2014 7:51 AM CDT) [facility] gist Method Time Signature Tacrolimus Last 1914 [facility] Dose 02/13/[address] [facility] LABS Tacrolimus 7.5 5.0 - [facility] Level 15.0 ug/L [facility] LABS Comment: Tacrolimus Reference Range Kidney [...] Code Phon e Number [facility] [address] [place], [place] [phone] [place] [address] LABS (ABNORMAL) CBC with platelets differential (02/14/2014 7:51 AM CDT) [facility] gist Method Time Signature WBC 6.9 4.0 - [facility] 11.0 [place] 10e9/L [place] LABS RBC Count 2.55 (L) 4.4 - 5.9 [facility] 10e12/L [facility] LABS Hemoglobin 7.8 (L) 13.3 - [facility] 17.7 g/dL [facility] LABS Hematocrit 23.4 (L) 40.0 - [facility] 53.0 % [facility] LABS MCV 92 78 - [address] [facility] [address] [facility] LABS MCH 30.6 26.5 - [facility] 33.[address] [facility] LABS MCHC 33.3 31.5 - [facility] 36.5 g/dL [facility] LABS RDW 14.9 10.0 - [facility] 15.0 % [facility] Platelet Count 122 (L) 150 - 450 [facility] 10e9/L [facility] LABS Diff Method Automated [facility] Method [facility] LABS % Neutrophils 88.7 % [facility] LABS % Lymphocytes 2.6 % [facility] LABS % Monocytes 4.5 % [facility] % Eosinophils 3.8 % [facility] % Basophils 0.1 % [facility] [place] [facility] % Immature 0.3 % [facility] Granulocytes [facility] LABS Absolute 6.1 1.6 - 8.3 [facility] Neutrophil 10e9/L [facility] LABS Absolute 0.2 (L) 0.8 - 5.3 [facility] Lymphocytes 10e9/L [facility] LABS Absolute 0.3 0.0 - 1.3 [facility] Monocytes 10e9/L [facility] LABS Absolute 0.3 0.0 - 0.7 [facility] Eosinophils 10e9/L [facility] LABS Absolute 0.0 0.0 - 0.2 [facility] Basophils 10e9/L [facility] LABS Abs Immature 0.0 0 - 0.4 [facility] Granulocytes 10e9/L [facility] LABS Specimen Anatomical Collection Method Collection Time Receive d Time (Source) Location / / Volume Laterality Blood specimen 02/14/2014 7:51 AM 014 7:53 (specimen) CDT AM CDT Joseph Quintana MD LAB - BLOOD ORDERABLES Performing Organization Address City/[facility]/ZIP Code Phon e Number [address] LABS (ABNORMAL) Phosphorus (02/14/2014 7:51 AM [...] City/[facility]/ZIP Code Phon e Number [address] LABS Magnesium (02/14/2014 7:51 AM CDT) P athologist Signature Magnesium 1.6 1.6 - 2.3 [facility] mg/dL [facility] LABS Specimen Anatomical Collection Method Collection Time Receive d Time (Source) Location / / Volume Laterality Blood specimen 02/14/2014 7:51 AM 014 7:53 (specimen) CDT AM CDT Joseph Quintana MD LAB - BLOOD ORDERABLES Performing Organization Address City/[facility] Code Phon e Number [facility] [address] [place], [place] [phone] [place] [address] LABS (ABNORMAL) Basic metabolic panel (02/14/2014 7:51 AM CDT) Patholo gist Method Time Signature Sodium 143 133 - 144 [facility] mmol/L [facility] LABS Potassium 5.4 (H) 3.4 - 5.3 [facility] mmol/L [facility] LABS Chloride 113 (H) 94 - 109 [facility] mmol/L [facility] LABS Carbon Dioxide 20 20 - 32 [facility] mmol/L [facility] LABS Anion Gap 9 6 - 17 [facility] mmol/L [facility] LABS Glucose 193 (H) 60 - 99 [facility] mg/dL [facility] LABS Urea Nitrogen 18 7 - 30 [facility] mg/dL [facility] LABS Creatinine 1.82 (H) 0.66 - [facility] 1.25 mg/dL [facility] LABS GFR Estimate 38 (L) >60 [facility] mL/min/1.7 [place] m2 [facility] LABS GFR Estimate If 46 (L) >60 [facility] Black mL/min/1.7 [place] m2 [place] LABS Calcium 9.2 8.5 - 10.4 [facility] mg/dL [facility] LABS Specimen Anatomical Collection Method Collection Time Receive d Time (Source) Location / / Volume Laterality Blood specimen 02/14/2014 7:51 AM 014 7:53 (specimen) CDT AM CDT Joseph Quintana MD LAB - BLOOD ORDERABLES Performing Organization Address City/[facility] Code Phon e Number [facility] [address] [place] [address] [facility] LABS documented in this encounter Visit Diagnoses Diagnosis Kidney replaced by transplant - Primary S/P kidney transplant Kidney replaced by transplant documented in this encounter Care Teams Insurance Investigator Relationship Specialty Start Date End Date Momo Forbes PCP - General Family Practice 01/02/14 [facility] [address] [place] [address] Ingrid Santana, RN Registered Nurse Transplant 02/10/12 documented as of this encounter
--- OUTSIDE RECORDS SUMMARY | 2022-05-28 11:24 | XMS_ITS | Encounter Summary ---
:1950 Author Organization [place] Address [facility] [place] [address] Care Team Providers Name Role Phone Ingrid Santana RN Unavailable Unavailable Momo Forbes Primary Care Provider Reason for Referral CV Cardio consult - Closed Specialty Diagnoses / Procedures Referred By Contact Refer red To Contact Diagnoses Atrial fibrillation (H) Kaitlynn Leon MD [facility] [place] [address] [place] [address] Fax: Referral ID Status Reason Start Date Expiration Date Visits Requ ested Visits Authorized [id number] Closed 02/12/2014 08/11/2014 1 1 Reason for Visit Reason Comments RECHECK Encounter Details Date Type Department Care Team Description 02/12/2014 Office Visit Specialty Infusion Kaitlynn Leon, S/P liborio olivo transplant (Primary Dx); and Procedure Center Atrial fibrillation (H); [facility] Hypopho sphatemia; [facility] Nausea; [address]nd Floor [address] Immunosuppression (H) [address] [place], [place] [address] [place], [place] [phone] (Work) [phone] Social History Tobacco Use Types Packs/Day Years [...] Dear Diego Guthrie Thank you for choosing [facility] ([facility]) for your transplant cares. The following information is a summary of our appointment as well as important reminders. Please make sure your phone is available today because I will call to update you with your anti-rejection drug levels and possibly make changes to your anti- rejection dosages. Additional information: -Decrease your coumadin dose to 5 mg every evening -Please return to [facility] on for Labs & assessment -Call us or Leandro Kahn with any questions. -Your Home Care Nurse should begin visits on TuesdayFebruary 14. If you do not hear from them by Tuesday morning, try to reach them at [phone]. We look forward in seeing you on your next appointment here at [facility]. Please don???t hesitate to callus at [phone] to reschedule any of your appointments or to speak with one of the [facility] registered nurses. It was a pleasure taking care of you today. 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
--- OUTSIDE RECORDS SUMMARY | 2022-05-28 11:25 | XMS_ITS | Encounter Summary ---
:1950 Author Organization [facility] Address [address] [place] [address]. [place] [address] Care Team Providers Name Role Phone Ingrid Santana RN Unavailable Unavailable Momo Forbes Primary Care Provider Reason for Referral Home Health Therapies & Aides Specialty Diagnoses / Procedures Referred By Contact Refer red To Contact Adeline Diaz MD [place] [phone] Referral ID Status Reason Start Date Expiration Date Visits Requ ested Visits Authorized ome Health Therapies & Aides Specialty Diagnoses / Procedures Referred By Contact Gary phelps To Contact Adeline Diaz MD [place] [phone] Referral ID Status Reason Start Date Expiration Date Visits Requ ested Visits Authorized ome Health Therapies & Aides Specialty Diagnoses / Procedures Referred By Contact Gary phelps To Contact [facility] [address] [place], [place] [phone] Referral ID Status Reason Start Date Expiration Date Visits Requ ested Visits Authorized Reason for Visit Auth/Cert - Closed Specialty Diagnoses / Procedures Referred By Contact Gary phelps To Contact Med Surg Diagnoses end stage renal disease dialysis End stage renal failure on dialysis Renal Failure Uu U7a Procedures TRANSPLANT KIDNEY RECIPIENT DONOR [address] [place] [address] Phone: Referral ID Status Reason Start Date Expiration Date Visits Requ ested Visits Authorized [id number] Closed 02/04/2014 08/03/2014 1 1 Encounter Details Date Type Department Care Team Description 02/02/2014 - Hospital Encounter [facility] Susie Doyle MD [address] [place] [id number] S/P kidney transplant (Primary Dx); 02/08/2014 [facility] Unit [address] Mathew Parker MD [address] [place] [id number] Atrial fibrillation (H) [address] [place] [address] Social History Tobacco Use Types [...] Physician Discharge Summary Patient ID: Diego Guthrie [id number] 63 year old 1950 Admit date: 02/02/2014 [...] Take 1 tablet by mouth daily. B eeybjrl-N-ouogc acid (NEPHROCAPS) 1 MG capsule Take 1 [...] in the [facility] ([facility]) which is located on the [...] of these appointments you will meetwith a electroplater apprentice and meet your clerical coordinator. Your nurse will also be in communication with your surgeon and electroplater apprentice as needed. The direct number to the [facility] is [phone]. In the [facility] [...] This will be located in [facility] transplant surgery clinic on the second floor.Your transplant surgeon is: Dr. Merchant. You have a ureteral stent in place which needs to be removed in 4-6 weeks. If a rehabilitation aide/scheduler does not contact you for this, please contact your clerical coordinator. If you have modesta in place, they will be removed in 3 weeks after operation. Notify your coordinator if you have pain over your kidney, fever greater than 101.5F, or decreased urine output. Notify your coordinator immediately if you are ever unable to take your immunosuppressive medications for any reason. Concrete Products Machine Operator [phone] Diet recommendations post-transplant: Heart healthy dietary habits termite control service representative (low saturated/trans fat, low sodium). High protein [...] >2. He can be seen by any fight manager in the outpatient setting for coordination. Continue metoprolol 25 po bid until he is r e-evaluated. We did attempt inpatient REFUGIO guided cardioversion, but the patient developed significant bleeding while on heparin. José Miguel Alvarez M.D. Prepress Manager Joseph Quintana MD - 02/08/2014 12:35 PM [...] Dr. Quintana. Sina Robison MD Nephrology Fellow [phone] Attestation: This patient has been seen and [...] Ramires RN - 02/07/2014 2:25 PM CDT Electrode Cleaning Machine Operator D: Diego Guthrie 63 year old male POD #5 s/p DDKT for ESRD 2/[address] Diaz note today. Per Dr Diaz, pt will most likely be ready for d/c to home tomorrow and will return to [facility] for 5 days at 0700. [...] him. Pt does not know where the [facility] or transplant clinic is, I told him and he replied I will find it. Pt does not care which [facility] agency will follow him--There are only 2 to choose from, so I chose the Local [facility] [phone]/ --I called and left a message with Estrella Fletcher and I fax'd his records tothem--pt will need start of care approx Thursday 02/15. Pt is new on warfarin and I called his PCP's office and they have INR nurses Tuesday-Tuesday their fax # is [phone] (when N visits are completed --pt will call main clinic # to schedule INR draws). 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 I verified his address and phone #(is his cell) on the facesheet. Pt has not met his OP tire care manager: Leandro Kahn, yet--I sent Leandro an in basket message today-with plan. A: possible d/c to home Tuesday P: see above-will follow and will call [facility] to confirm they can accept him. [...] Dr. Quintana. Sina Robison MD Nephrology Fellow [phone] Attestation: This patient has been seen and [...] assistance Medical Decision Making: Medium Subsequent visit 90280 (moderate level decision making) PATO/Fellow/Resident Provider: Adeline [...] reflected in the note and orders. . Idnu Calixto MD - 02/07/2014 4:20 AM CDT [...] Rodriguez MD - 02/06/2014 4:25 PM CDT [facility] Cardiology Progress Note I have seen [...] creatinine drops. Seen and discussed with Dr. uQintana. Sina Robison MD Nephrology Fellow [phone] Attestation: This patient has been seen and [...] Dr. Quintana. Sina Robison MD Nephrology Fellow [phone] Attestation: This patient has been seen and [...] REPLACEMENT ONLY ??? insulin (regular) Stopped (02/05/14 4907) Shiva Kahn RN - 02/05/2014 4:47 PM CDT FIRER RETORT NOTE I met with the patient and his yesterday at [facility] PCU-6B (telemetry unit) to discuss transition from inpatient to outpatient care following kidney translantation. The patient is POD #3 extended criteria donor (GENERAL SCIENCE TEACHER) kidney transplant for ESRD related to diabetic [...] the plan for daily visits to the [facility] for 5 days after discharge [...] meet with [facility] discharge from [facility]. Joseph Rodriguez MD - 02/05/2014 11:16 AM CDT [facility] Cardiology Progress Note I have seen [...] plan for REFUGIO cardioversion tomorrow, NPO at DE (orders placed) -- continue heparin and initiate [...] kidney on 02/02/2014. Pt lives alone in [facility] though reports that his girlfriend in in the process of moving in with him. Pt girlfriend, Tete, will be present when pt returns home but she works air bag buffer. Pt was on dialysis for 2 1/2 years prior to transplant. Pt works independently but reports that he currently has no income coming in. Pt has primary insurancethrough Medicare and Secondary insurance through [employer]. Pt has no co-pays for his immunosuppressants and a high out of pocket cost for Valcyte, SW to look into grants for pt for Valcyte. I: Met with pt to introduce this music writer and explain sw role and services available while inpatient in the hospital. Asked if pt had any questions or concerns and completed an assessment of psychosocialneeds post transplant. Provided education about expectations and requirements post discharge like fol low up in the [facility]. Pt is unsure yet if [...] needs arise prior to discharge. CECY Kearns, LEAD ELECTRICAL CONTROLS ENGINEER Indu Calixto MD - 02/05/2014 1:50 AM [...] Adds Type of Visit Initial PT Evaluation Inspector Set Up And Lay Out Inspector Set Up And Lay Out Present no Language Tongan Living Environment (R) Lives With alone Living Arrangements ([facility]) Home Accessibility no concerns Number of [...] up when pt is available. CECY Kearns, LEAD ELECTRICAL CONTROLS ENGINEER [phone] phone [phone] pager Joseph Quintana MD - 02/04/2014 11:51 [...] Dr. Quintana. Sina Robison MD Nephrology Fellow [phone] Attestation: This patient has been seen and [...] for this basename: PTHI, in the last 61731 hours IRON STUDIES No results found for this basename: IRON, FEB, IRONSAT, THEE, in the last 88935 hours Imaging: All imaging studies reviewed by [...] or equal to 12.0 mlU/mL. Adeline Diaz [phone] Attestation: The patient has been seen and [...] donor kidney transplant, with stent on 02/02/14. GENERAL SCIENCE TEACHER donor. Graft function:uncertain, Cr slightly up. Slow [...] . Medical Decision Making: Medium Subsequent visit 84515 (moderate level decision making) PATO/Fellow/Resident Provider: Caitlin [...] note and orders. Migel Merchant MD, PhD student specialist Abdominal Organ Transplantation Carmelita Rosario, RN - 02/03/2014 9:38 AM CDT Patient removed from the UNOS waitlist after donor kidney transplant. UNOS ID is [id number]. Rafaela Cardona - 02/03/2014 9:17 AM CDT [...] followed general diet. Patient reports good appetite/intake SERVICE SUPERINTENDENT, no nutrition issues/concnerns. CURRENT NUTRITION ORDERS - [...] DDKT ASSESSED NUTRITION NEEDS: Estimated Energy Needs: 1652-4605+ kcals (25-30+ Kcal/Kg) Justification: maintenance post-transplant Estimated [...] (6- 8 weeks). Rec follow heart-healthy diet shelter. Implementation Nutrition education: Provided instruction on post-transplant diet with discussion regarding protein sources and high protein needs in acute post-tx phase. Reviewed recommendations to follow low fat/lowsodium diet termite control service representative and discussed heart healthy diet tips. Discussed [...] adjustment. Rafaela Cardona RD, LD Weekend Coverage [phone] Jose Aguirre MD - 02/03/2014 4:57 AM [...] Doing well postoperatively. Pain: Controlled by Dilaudid ICE SKATING COACH Diet: NPO tonight Volume Status: Borderline low UOP, continue MIVF, 0.9 % NS 500 cc bolus given for low UOP, CVP not accurate, systolic in 100-110 Recheck hemoglobin and potassium normal. Rest of the plan per primary team. Will continue to follow. Jose Aguirre MD PGY-1.................02/03/2014 Surgery Cross Cover Pager:[phone] documented in this encounter H&P Notes Caitlin [...] 1 tablet by mouth daily. ??? 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 Kidney bx [...] note and orders. Migel Merchant MD, PhD student specialist Abdominal Organ Transplantation documented in this encounter [...] 1 tablet by mouth daily. ??? 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 2. There is no [...] assessment and plan. José Miguel Alvarez MD Prepress Manager Pager: [phone] February 04, 2014 Kaitlynn Leon MD - 02/03/2014 9:30 AM CDT Nephrology Initial Consult February 03, 2014 Diego Guthrie Date of : 1950 Date of Admission:02/02/2014 Primary care provider: Momo Forbes Requesting physician: Migel Merchant MD ASSESSMENT AND RECOMMENDATIONS: 1. DDKT - GENERAL SCIENCE TEACHER -59 yo women; slow graft function-no immediate need for dialysis , but may require tomorrow if UO does not fiber picker. We will monitor Induction with Thymo/Cellcept [...] h/o type 2 Dm, who received DDKT (GENERAL SCIENCE TEACHER) on 02/02/2014 donor kidney had severe atherosclerotic [...] ??? Cataract iol, rt/lt both eyes MEDICATIONS: SERVICE SUPERINTENDENT Meds Prior to Admission medications Medication Sig Last Dose Taking? Auth Provider Calcium Carbonate-Vitamin D (CALCIUM + D PO) Take by mouth daily. Reported, Patient lisinopril (PRINIVIL,ZESTRIL) 40 MG tablet Take 40 mg by mouth 2 times daily. Reported, Patient METOPROLOL SUCCINATE PO Take by mouth daily. Reported, Patient aspirin 81 MG tablet Take 1 tablet by mouth daily. Reported, Patient B vmefvtq-S-sbjuo acid (NEPHROCAPS) 1 MG capsule Take 1 [...] Intravenous Central line Once ??? HYDROmorphone Intravenous ICE SKATING COACH Infusion Meds ??? 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 Alivn Diego Cardiovascular Disease Fellow [phone] Patient seen and examined by me with [...] Cullen MD, PhD Jarad Cullen MD, PhD [phone] documented in this encounter Nursing Notes Gretta Mary RN - 02/02/2014 11:[address] Owens with Transplant Surgery notified of stat lab results. Magnesium replaced. Dr. Blank with Anesthesia reviewed chest x-ray. CVC not deep enough to give accurate CVP readings, however all lumens aspirate blood well. Patient is ok to transfer to unit 6B per [facility]. documented in this encounter Miscellaneous Notes Plan of Care - Amanda Hernandez RN - 02/08/2014 3:44 PM CDT Problem: IP GENERAL POC-ADULT,OB,BEHAVIORAL FVCPM Goal: Individualization/Patient-Specific Goal (Adult,OB,Behavioral The patient and/or their patient admitting representative will achieve their patient-specific goals related [...] Card updated. [facility] Left facility accompanied by s.gumaro at 1600. Plan of Care - Amanda Hernandez RN - 02/08/2014 2:13 PM CDT Problem: IP GENERAL POC-ADULT,OB,BEHAVIORAL FVCPM Goal: Individualization/Patient-Specific Goal (Adult,OB,Behavioral The patient and/or their patient admitting representative will achieve their patient-specific goals related [...] Individualization/Patient-Specific Goal (Adult,OB,Behavioral The patient and/or their patient admitting representative will achieve their patient-specific goals related [...] Individualization/Patient-Specific Goal (Adult,OB,Behavioral The patient and/or their patient admitting representative will achieve their patient-specific goals related [...] recommendations post-transplant: Heart healthy dietary habits termite control service representative (low saturated/trans fat, low sodium). High protein diet x 8 weeks. Practice food safety precautions - no fish/seafood x 3 weeks. Inez Luevano MS, RD, LD Pager [phone] Pharmacy-Immunosuppression Monitoring - Em Vasquez [facility] - 02/07/2014 9:06 AM CDT [...] will continue to follow. Em Vasquez, Pharm.D., [facility] Pager [phone] Electronically signed by Em Vasquez [facility] at 02/07/2014 11:00 AM CDT Plan of Care - Annmarie Colby RN - 02/07/2014 5:11 AM CDT Problem: IP GENERAL POC-ADULT,OB,BEHAVIORAL FVCPM Goal: Individualization/Patient-Specific Goal (Adult,OB,Behavioral The patient and/or their patient admitting representative will achieve their patient-specific goals related [...] Individualization/Patient-Specific Goal (Adult,OB,Behavioral The patient and/or their patient admitting representative will achieve their patient-specific goals related [...] regular diet w good appetite. Thymo infusing. MRAGARET w moderate amount of serosanguinous output. Good [...] increased fluid intake, urine color is becoming healthcare architect( tea color/bloody- >dark sy/tea color). Incisional pain [...] Physical Therapy Goals The patient and/or their patient admitting representative will achieve their patient-specific goals related [...] Physical Therapy Goals The patient and/or their patient admitting representative will achieve their patient-specific goals related [...] Individualization/Patient-Specific Goal (Adult,OB,Behavioral The patient and/or their patient admitting representative will achieve their patient-specific goals related [...] Individualization/Patient-Specific Goal (Adult,OB,Behavioral The patient and/or their patient admitting representative will achieve their patient-specific goals related [...] Physical Therapy Goals The patient and/or their patient admitting representative will achieve their patient-specific goals related [...] this time. Pharmacy - Cayetano Olivera [facility] - 02/05/2014 12:26 PM CDT Visited 02/05/2014 in hospital room prior to discharge to review medications, review discharge process and review specialty pharmacy program. Med Review: Reviewed patient's medications and medical conditions. Patient would like to use [facility] to manage all medications. Medcard: [...] Specialty Pharmacy review: Discussed the benefits of [facility] and Diego has enrolled. Also gave him supplies (blood pressure cuff, thermometer, and pill box) Other concerns: No other concerns at this time. No further questions for this pharmacist. Inez Cox, Student Pharmacist Information Security Officer [facility] [address] [place] [id number] Cayetano Olivera, Pharmacist [facility] [phone] Electronically signed by Cayetano Olivera [facility] at 02/05/2014 1:26 PM CDT Pharmacy-Anticoagulation Service - Teresa Wright [facility] - 02/05/2014 11:29 AM CDT [...] procedure or if the INR goals change. Electronically signed by Teresa Wright [facility] at 02/05/2014 12:45 PM CDT Plan of Care - Pau Alvarez - 02/05/2014 6:56 AM CDT Problem: IP GENERAL POC-ADULT,OB,BEHAVIORAL FVCPM Goal: Individualization/Patient-Specific Goal (Adult,OB,Behavioral The patient and/or their patient admitting representative will achieve their patient-specific goals related [...] melonie hard time making full sentences. When music writer came on shift at 8pm patient [...] Individualization/Patient-Specific Goal (Adult,OB,Behavioral The patient and/or their patient admitting representative will achieve their patient-specific goals related [...] Physical Therapy Goals The patient and/or their patient admitting representative will achieve their patient-specific goals related [...] by friend. Pt transferred to chair, VSS, monitor technician on, oriented to room. Pharmacy-Admission Medication History - Teresa Wright, [facility] - 02/04/2014 11:54 AM CDT Admission medication history interview status for the 02/02/2014 admission is complete. See [facility] admission navigator for allergy information, prior to admission medications and immunization status. Medication history interview sources (including written lists, pill bottles, clinic record):Patient Medication history source reliability:Good Primary pharmacy:[facility] phone number: [phone] Changes made to SERVICE SUPERINTENDENT medication list (reason) Added: Vitamin D 1,000 [...] at Unknown time Yes Reported, Patient B vjyntit-V-nrrco acid (NEPHROCAPS) 1 MG capsule Take 1 [...] Time spent in this activity: 25 mins Electronically signed by Teresa Wright [facility] at 02/04/2014 2:08 PM CDT Plan of Care - Martnia Burciaga RN - 02/04/2014 11:23 AM CDT Problem: IP GENERAL POC-ADULT,OB,BEHAVIORAL FVCPM Goal: Individualization/Patient-Specific Goal (Adult,OB,Behavioral The patient and/or their patient admitting representative will achieve their patient-specific goals related [...] 45 minutes and remains in A-fib via compliance monitor. Repeat EKG around 1000 showed continued [...] Physical Therapy Goals The patient and/or their patient admitting representative will achieve their patient-specific goals related to the plan of care. The patient-specific goals include: PT 7A: HOLD for AM per RN - pt with a-fib this morning. Plan of Care - Alisson Diane RN - 02/04/2014 6:45 AM CDT Problem: IP GENERAL POC-ADULT,OB,BEHAVIORAL FVCPM Goal: Individualization/Patient-Specific Goal (Adult,OB,Behavioral The patient and/or their patient admitting representative will achieve their patient-specific goals related [...] Individualization/Patient-Specific Goal (Adult,OB,Behavioral The patient and/or their patient admitting representative will achieve their patient-specific goals related [...] yellow. Pharmacy-Transplant Note - Davina Schuster, [facility] - 02/03/2014 4:28 PM CDT [...] as appropriate. Electronically signed by Davina Schuster [facility] at 02/03/2014 4:30 PM CDT Plan of Care - Martina Burciaga RN - 02/03/2014 3:08 PM CDT Problem: IP GENERAL POC-ADULT,OB,BEHAVIORAL FVCPM Goal: Individualization/Patient-Specific Goal (Adult,OB,Behavioral The patient and/or their patient admitting representative will achieve their patient-specific goals related to the plan of care. The patient-specific goals include: 1. Pt will remain hemodynamically stable 2. Pt will have adequate urine output 3. Pt will be free of falls. RD Patient will verbalize understanding of 3 important aspects of post-transplant diet guidelines. PO intake >50% meals TID once diet adv. Report taken from [facility] on 6B; patient transferred to from 6B via wheelchair around 1500. Patientsettled into room, oriented to floor/room and call light. VS taken. Orders released. Continue ordersas written and notify MD with any concerns. Plan of Care - Sofie Christianson RN - 02/03/2014 2:59 PM CDT Problem: IP GENERAL POC-ADULT,OB,BEHAVIORAL FVCPM Goal: Plan of Care Review (Adult,OB,Behavioral) The patient and/or their patient admitting representative will communicate an understanding of their [...] algorithm 2, 1 unit now. Pt still [id number] NC to maintain sats above 90 % [...] Individualization/Patient-Specific Goal (Adult,OB,Behavioral The patient and/or their patient admitting representative will achieve their patient-specific goals related [...] Intermittent sharp R lower abd pain. Dilaudid ICE SKATING COACH encouraged, increased to 0.2/10/1.2. R lower abd [...] 0200 made 20cc/hr, at 0300 made 30cc/hr. [place]/red tinged urine. MIVF @ 125/hr. VSS. HR 70s, BPs 100s-120s/60s. No new orders at this time. Will continue to monitor. Plan of Care - Tasia Andrade RN - 02/03/2014 12:00 AM CDT Pt arrived to 6B from PACU, s/p DDKT. A&O x3-4. VSS. [place]/red urine output. Small amt drainage on abd [...] to Type 2 Diabetes. The patient received [facility] offer for a Donor GENERAL SCIENCE TEACHER (expanded criteria donor) kidney transplant. After discussing [...] The UNOS number of the donor is [id number]. The crossmatch was done prospectively; and the [...] reconstruction. FACULTY SURGEON: Migel Merchant M.D., Ph.D. FELLOW/ASSEMBLY ADJUSTER SURGEON: Caitlin Owens MD fellow ANESTHESIA: None VERIFICATION: Prior to incision, I verified the donor ABO and recipient ABO. After the donor organ arrived to the operating room and prior to anastamosis, I visually verified that the donor identification, blood type, and other vital data were compatible with the recipient. FINDINGS: Donor type: GENERAL SCIENCE TEACHER (expanded criteria donor) Organ: kidney Graft Injury: [...] Individualization/Patient-Specific Goal (Adult,OB,Behavioral The patient and/or their patient admitting representative will achieve their patient-specific goals related [...] Individualization/Patient-Specific Goal (Adult,OB,Behavioral The patient and/or their patient admitting representative will achieve their patient-specific goals related [...] LARES - ROBERT POCT Performing Organization Address City/State/[facility] Code Phon e Number FV [...] GLUCOSE Tacrolimus level (02/08/2014 6:42 AM CDT) [facility] gist Method Time Signature Tacrolimus Not Provided [facility] Last Dose [facility] LABS Tacrolimus 10.0 5.0 - [...] Code Phon e Number [facility] [address] [place] [address] [facility] LABS (ABNORMAL) INR (02/08/2014 6:42 AM CDT) P athologist Signature INR 1.28 (H) 0.86 - 1.14 [facility] LABS Specimen Anatomical Collection Method Collection Time Receive d Time (Source) Location / / Volume Laterality Blood specimen 02/08/2014 6:42 AM 014 6:43 (specimen) CDT AM CDT Omaira Chavez PA-C LAB - BLOOD ORDERABLES Performing Organization Address City/[facility]/ZIP Code Phon e Number [facility] [address] [place], [place] [phone] [place] [address] LABS (ABNORMAL) Basic metabolic panel (02/08/2014 6:42 AM CDT) Patholo gist Method Time Signature Sodium 144 133 - 144 [facility] mmol/L [facility] LABS Potassium 3.9 3.4 - 5.3 [facility] mmol/L [facility] LABS Chloride 110 (H) 94 - 109 [facility] mmol/L [facility] LABS Carbon Dioxide 25 20 - 32 [facility] mmol/L [facility] LABS Anion Gap 8 6 - 17 [facility] mmol/L [facility] LABS Glucose 144 (H) 60 - 99 [facility] mg/dL [facility] LABS Urea Nitrogen 66 (H) 7 - 30 [facility] mg/dL [facility] LABS Creatinine 2.38 (H) 0.66 - [facility] 1.25 mg/dL [facility] LABS GFR Estimate 28 (L) >60 [facility] mL/min/1.7 [place] [facility] LABS GFR Estimate If 34 (L) >60 [facility] Black mL/min/1.7 [place] [facility] LABS Calcium 9.4 8.5 - 10.4 [facility] mg/dL [facility] LABS Specimen Anatomical Collection Method Collection Time Receive d Time (Source) Location / / Volume Laterality Blood specimen 02/08/2014 6:42 AM 014 6:43 (specimen) CDT AM CDT Omaira Chavez PA-C LAB - BLOOD ORDERABLES Performing Organization Address City/State/ZIP Code Phon e Number [facility] [address] [place] [address] [facility] LABS Phosphorus (02/08/2014 6:42 AM CDT) [...] Phon e Number [facility] [address] LABS Magnesium (02/08/2014 6:42 AM CDT) P athologist Signature Magnesium 2.2 1.6 - 2.3 [facility] mg/dL [place] LABS Specimen Anatomical Collection Method Collection Time Receive d Time (Source) Location / / Volume Laterality Blood specimen 02/08/2014 6:42 AM 014 6:43 (specimen) CDT AM CDT Omaira Chavez PA-C LAB - BLOOD ORDERABLES Performing Organization Address City/[facility]/ZIP Code Phon e Number [facility] [address] LABS (ABNORMAL) CBC with platelets differential (02/08/2014 6:42 AM CDT) Patholo gist Method Time Signature WBC 4.8 4.0 - [facility] 11.0 [facility] 10e9/L [place] LABS RBC Count 2.56 (L) 4.4 - 5.9 [facility] 10e12/L [facility] LABS Hemoglobin 7.8 (L) 13.3 - [facility] 17.7 g/dL [facility] LABS Hematocrit 23.5 (L) 40.0 - [facility] 53.0 % [facility] LABS MCV 92 78 - 100 [facility] fl [facility] LABS MCH 30.5 26.5 - [facility] 33.0 pg [facility] LABS MCHC 33.2 31.5 - [facility] 36.5 g/dL [facility] LABS RDW 14.5 10.0 - [facility] 15.0 % [facility] LABS Platelet Count 70 (L) 150 - 450 [facility] 10e9/L [facility] LABS Diff Method Automated [facility] Method [facility] LABS % Neutrophils 86.3 % [facility] LABS % Lymphocytes 3.1 % [facility] LABS % Monocytes 9.4 % [facility] LABS % Eosinophils 1.0 % [facility] LABS % Basophils 0.0 % [facility] LABS % Immature 0.2 % [facility] Granulocytes [facility] LABS Absolute 4.1 1.6 - [...] Address City/State/ZIP Code Phon e Number [phone] [place] [address] LABS (ABNORMAL) Glucose by meter (02/07/2014 10:18 [...] POCT Performing Organization Address City/[facility]/ZIP [facility] Phon e Number [...] LAB - BEAKER POCT Performing Organization Address [facility] Phon e Number FV POINT [...] less likely abscess. Findings discussed with Adeline Diza by Tiffany Cox at 1143 hours January,. [...] JONES POCT Performing Organization Address City/[facility] Code Phon e Number FV [...] CDT Migel JONES POCT Performing Organization Address City/State/[facility] Code Phon e Number FV POINT OF CARE TEST, GLUCOSE POINT OF CARE TEST, GLUCOSE (ABNORMAL) INR (02/07/2014 4:23 AM CDT) athologist Signature INR 1.25 (H) 0.86 - 1.14 [facility] LAB[facility] Specimen Anatomical Collection Method Collection Time Receive d Time (Source) Location / / Volume Laterality Blood specimen 02/07/2014 4:23 AM 014 4:24 (specimen) CDT AM CDT Omaira Chavez PA-C LAB - BLOOD ORDERABLES Performing Organization Address City/[facility]/ZIP Code Phon e Number [facility] [address] [place] [address] [facility] LABS (ABNORMAL) Basic metabolic panel (02/07/2014 4:23 AM CDT) Patholo gist Method Time Signature Sodium 143 133 - 144 [facility] mmol/L [facility] LABS Potassium 4.1 3.4 - 5.3 [facility] mmol/L [facility] LABS Chloride 109 94 - 109 [facility] mmol/L [facility] LABS Carbon Dioxide 24 20 - 32 [facility] mmol/L [facility] LABS Anion Gap 10 6 - 17 [facility] mmol/L [facility] LABS Glucose 185 (H) 60 - 99 [facility] mg/dL [facility] LABS Urea Nitrogen 77 (H) 7 - 30 [facility] mg/dL [facility] LABS Creatinine 3.02 (H) 0.66 - [facility] 1.25 mg/dL [facility] LABS GFR Estimate 21 (L) >60 [facility] mL/min/1.7 [facility] LAB[facility] GFR Estimate If 26 (L) >60 [facility] Black mL/min/1.7 [place] [facility] LABS Calcium 9.3 8.5 - 10.4 [facility] mg/dL [facility] LABS Specimen Anatomical Collection Method Collection Time Receive d Time (Source) Location / / Volume Laterality Blood specimen 02/07/2014 4:23 AM 014 4:24 (specimen) CDT AM CDT Omaira Chavez PA-C LAB - BLOOD ORDERABLES Performing Organization Address City/State/ZIP Code Phon e Number [facility] [address] [place] [address] [facility] LABS Phosphorus (02/07/2014 4:23 AM CDT) [...] Phon e Number [facility] [address] LABS Magnesium (02/07/2014 4:23 AM CDT) P athologist Signature Magnesium 2.1 1.6 - 2.3 [facility] mg/dL [place] LABS Specimen Anatomical Collection Method Collection Time Receive d Time (Source) Location / / Volume Laterality Blood specimen 02/07/2014 4:23 AM 014 4:24 (specimen) CDT AM CDT Omaira Chavez PA-C LAB - BLOOD ORDERABLES Performing Organization Address City/[facility]/ZIP Code Phon e Number [facility] [address] [place], [place] [phone] [place] [address] LABS (ABNORMAL) CBC with platelets differential (02/07/2014 4:23 AM CDT) Patholo gist Method Time Signature WBC 2.7 (L) 4.0 - [facility] 11.0 [facility] 10e9/L [place] LABS RBC Count 2.80 (L) 4.4 - 5.9 [facility] 10e12/L [facility] LABS Hemoglobin 8.5 (L) 13.3 - [facility] 17.7 g/dL [facility] LABS Hematocrit 25.8 (L) 40.0 - [facility] 53.0 % [facility] LABS MCV 92 78 - 100 [facility] fl [facility] LABS MCH 30.4 26.5 - [facility] 33.0 pg [facility] LABS MCHC 32.9 31.5 - [facility] 36.5 g/dL [facility] LABS RDW 14.5 10.0 - [facility] 15.0 % [facility] LABS Platelet Count 77 (L) 150 - 450 [facility] 10e9/L [facility] LABS Diff Method Automated [facility] Method [facility] LABS % Neutrophils 87.5 % [facility] LABS % Lymphocytes 3.8 % [facility] LABS % Monocytes 8.7 % [facility] LABS % Eosinophils 0.0 % [facility] LABS % Basophils 0.0 % [facility] LABS % Immature 0.0 % [facility] Granulocytes [facility] LABS Absolute 2.3 1.6 - 8.3 [facility] Neutrophil 10e9/L [facility] [place] LABS Absolute 0.1 (L) 0.8 - 5.3 [facility] Lymphocytes 10e9/L [facility] LABS Absolute 0.2 0.0 - 1.3 [facility] Monocytes 10e9/L [facility] LABS Absolute 0.0 0.0 - 0.7 [facility] Eosinophils 10e9/L [facility] [facility] LAB[facility] Absolute 0.0 0.0 - 0.2 [facility] Basophils 10e9/L [facility] LABS Abs Immature 0.0 0 - 0.4 [facility] Granulocytes 10e9/L [facility] LABS Specimen Anatomical Collection Method Collection Time Receive d Time (Source) Location / / Volume Laterality Blood specimen 02/07/2014 4:23 AM 014 4:24 (specimen) CDT AM CDT Omaira Chavez PA-C LAB - BLOOD ORDERABLES Performing Organization Address City/[facility]/ZIP Code Phon e Number [address] LABS (ABNORMAL) Hemoglobin A1c (02/07/2014 4:23 AM CDT) Analysis Performed At Patho logist Time Signature Hemoglobin A1C 6.1 (H) 4.3 - 6.0 [facility] % [facility] LABS Specimen Anatomical Collection Method Collection Time Receive d Time (Source) Location / / Volume Laterality Blood specimen 02/07/2014 4:23 AM 014 4:24 (specimen) CDT AM CDT Omaira Chavez PA-C LAB - BLOOD ORDERABLES Performing Organization Address City/[facility]/ZIP Code Phon e Number [address] LABS (ABNORMAL) Glucose by meter (02/06/2014 [...] 8.8 (L) 13.3 - 17.7 [facility] g/dL [place] LABS Specimen Anatomical Collection Method Collection Time Receive d Time (Source) Location / / Volume Laterality Blood specimen 02/06/2014 4:59 PM 014 5:12 (specimen) CDT PM CDT Omaira Chavez PA-C LAB - BLOOD ORDERABLES Performing Organization Address City/State/ZIP Code Phon e Number [address] [address] [facility] LABS (ABNORMAL) Glucose by meter (02/06/2014 12:01 PM CDT) athologist Signature Glucose 181 (H) 60 - 99 POINT OF CARE mg/dL TEST, GLUCOSE Specimen Anatomical Collection Method Collection Time Receive d Time (Source) Location / / Volume Laterality 02/06/2014 12:01 02/06/2014 PM CDT 12:05 PM CDT Migel Mercahnt MD LAB - BEAKER POCT Performing Organization Address City/[facility]/ZIP Code Phon e Number FV POINT OF CARE TEST, GLUCOSE POINT OF CARE TEST, GLUCOSE (ABNORMAL) Partial thromboplastin time (02/06/2014 5:57 AM CDT) P athologist Signature PTT 154 (HH) 22 - 37 sec [facility] LABS Comment: Critical Value called to and read back Whitney Poon RN AT 0642. PW Specimen Anatomical Collection Method Collection Time Receive d Time (Source) Location / / Volume Laterality 02/06/2014 5:57 AM 4 6:03 CDT AM CDT Adeline Diaz MD LAB - BLOOD ORDERABLES Performing Organization Address City/[facility]/ZIP Code Phon e Number [phone] [place] [address] LABS Heparin Xa (10a) Level (02/06/2014 5:57 AM CDT) P athologist Signature Heparin 10A 0.92 IU/mL [facility] LABS Comment: Therapeutic Range: ?? UFH: [...] Code Phon e Number [facility] [address] [place] [address] [facility] LABS (ABNORMAL) INR (02/06/2014 5:57 AM CDT) P athologist Signature INR 1.32 (H) 0.86 - 1.14 [facility] LABS Specimen Anatomical Collection Method Collection Time Receive d Time (Source) Location / / Volume Laterality Blood specimen 02/06/2014 5:57 AM 014 6:03 (specimen) CDT AM CDT Omaira Chavez PA-C LAB - BLOOD ORDERABLES Performing Organization Address City/State/ZIP Code Phon e Number [facility] [address] LABS (ABNORMAL) Basic metabolic panel (02/06/2014 5:57 AM CDT) Patholo gist Method Time Signature Sodium 142 133 - 144 [facility] mmol/L [facility] LABS Potassium 4.7 3.4 - 5.3 [facility] mmol/L [facility] LABS Chloride 106 94 - 109 [facility] mmol/L [facility] LABS Carbon Dioxide 28 20 - 32 [facility] mmol/L [facility] LABS Anion Gap 8 6 - 17 [facility] mmol/L [facility] LABS Glucose 196 (H) 60 - 99 [facility] mg/dL [facility] LABS Urea Nitrogen 71 (H) 7 - 30 [facility] mg/dL [facility] LABS Creatinine 3.96 (H) 0.66 - [facility] 1.25 mg/dL [facility] LABS GFR Estimate 15 (L) >60 [facility] mL/min/1.7 [place] [facility] LABS GFR Estimate If 19 (L) >60 [facility] Black mL/min/1.[address] LABS Calcium 9.4 8.5 - 10.4 [facility] mg/dL [facility] LABS Specimen Anatomical Collection Method Collection Time Receive d Time (Source) Location / / Volume Laterality Blood specimen 02/06/2014 5:57 AM 014 6:03 (specimen) CDT AM CDT Omaira Chavez PA-C LAB - BLOOD ORDERABLES Performing Organization Address City/State/ZIP Code Phon e Number [facility] [address] [place] [address] [facility] LABS Phosphorus (02/06/2014 5:57 AM CDT) athologist Signature Phosphorus 4.5 2.5 - 4.5 [facility] mg/dL [place] LABS Specimen Anatomical Collection Method Collection Time Receive d Time (Source) Location / / Volume Laterality Blood specimen 02/06/2014 5:57 AM 014 6:03 (specimen) CDT AM CDT Omaira Chavez PA-C LAB - BLOOD ORDERABLES Performing Organization Address City/[facility]/ZIP Code Phon e Number [facility] [address] LABS Magnesium (02/06/2014 5:57 AM CDT) athologist Signature Magnesium 1.9 1.6 - 2.3 [facility] mg/dL [place] LABS Specimen Anatomical Collection Method Collection Time Receive d Time (Source) Location / / Volume Laterality Blood specimen 02/06/2014 5:57 AM 014 6:03 (specimen) CDT AM CDT Omaira Chavez PA-C LAB - BLOOD ORDERABLES Performing Organization Address City/State/[facility] Code Phon e Number [facility] [address] LABS (ABNORMAL) CBC with platelets differential (02/06/2014 5:57 AM CDT) [facility] Method Time Signature WBC 5.1 4.0 - [facility] 11.0 [facility] 10e9/L [place] LABS RBC Count 3.13 (L) 4.4 - 5.9 [facility] 10e12/L [facility] LABS Hemoglobin 9.6 (L) 13.3 - [facility] 17.7 g/dL [facility] LABS Hematocrit 29.0 (L) 40.0 - [facility] 53.0 % [facility] LABS MCV 93 78 - 100 [facility] fl [facility] LABS MCH 30.7 26.5 - [facility] 33.0 pg [facility] LABS MCHC 33.1 31.5 - [facility] 36.5 g/dL [facility] LABS RDW 14.5 10.0 - [facility] 15.0 % [facility] LABS Platelet Count 85 (L) 150 - 450 [facility] 10e9/L [facility] LABS Diff Method Automated [facility] Method [facility] LABS % Neutrophils 86.0 % [facility] LABS % Lymphocytes 5.1 % [facility] LABS % Monocytes 8.7 % [facility] LABS % Eosinophils 0.0 % [facility] LABS % Basophils 0.0 % [facility] LABS % Immature 0.2 % [facility] Granulocytes [facility] LABS Absolute 4.4 1.6 - 8.3 [facility] Neutrophil 10e9/L [facility] LABS Absolute 0.3 (L) 0.8 - 5.3 [facility] Lymphocytes 10e9/L [facility] LABS Absolute 0.4 0.0 - 1.3 [facility] Monocytes 10e9/L [facility] LABS Absolute 0.0 0.0 - 0.7 [facility] Eosinophils 10e9/L [facility] LABS Absolute 0.0 0.0 - 0.2 [facility] Basophils 10e9/L [facility] LABS Abs Immature 0.0 0 - 0.4 [facility] Granulocytes 10e9/L [facility] LABS Specimen Anatomical Collection Method Collection Time Receive d Time (Source) Location / / Volume Laterality Blood specimen 02/06/2014 5:57 AM 014 6:03 (specimen) CDT AM CDT Omaira Chavez PA-C LAB - BLOOD ORDERABLES Performing Organization Address City/State/ZIP Code Phon e Number [address] LABS (ABNORMAL) Lipid panel reflex to direct LDL (02/06/2014 5:57 AM CDT) P athologist Signature Cholesterol 126 <200 mg/dL [facility] LABS Comment: LDL Cholesterol is the primary guide to therapy. The NCEP recommends further evaluation of: patients with cholesterol greater than 200 mg/dL if additional risk facto rs are present, cholesterol greater than 240 mg/dL, triglycerides greater than 1 50 mg/dL, or HDL less than 40 mg/dL. Triglycerides 100 0 - 150 mg/dL [facility] LABS HDL Cholesterol 35 (L) >40 mg/dL [facility] LABS LDL Cholesterol Calculated 71 0 - 129 mg/dL [facility] LABS Comment: LDL Cholesterol is the primary guide to therapy: LDL-cholesterol goal in high risk patients is <100 mg/dL and in very high risk patients is <70 mg/dL. VLDL-Cholesterol 20 0 - 30 mg/dL [facility] Cholesterol/HDL Ratio 3.6 0.0 - 5.0 [facility] Specimen Anatomical Collection Method Collection Time Receive d Time (Source) Location / / Volume Laterality Blood specimen 02/06/2014 5:57 AM 014 6:03 (specimen) CDT AM CDT Omaira Chavez PA-C LAB - BLOOD ORDERABLES Performing Organization Address City/State/ZIP Code Phon e Number [facility] [address] [place], [place] [id number] [place] [address] LABS Tacrolimus level (02/06/2014 5:57 AM CDT) [facility] gist Method Time Signature Tacrolimus S Negative [facility] Last Dose [facility] LABS Tacrolimus 12.7 5.0 - [...] City/[facility]/ZIP Code Phon e Number [facility] [address] LABS (ABNORMAL) Glucose by meter (02/06/2014 [...] Hemoglobin 10.2 (L) 13.3 - [facility] 17.7 g/dL [place] LABS Specimen Anatomical Collection Method Collection Time Receive d Time (Source) Location / / Volume Laterality Blood specimen 02/06/2014 1:02 AM 014 1:11 (specimen) CDT AM CDT Deysi Alicea MD LAB - BLOOD ORDERABLES Performing Organization Address City/[facility]/ZIP Code Phon e Number [facility] [address] LABS (ABNORMAL) Glucose by meter (02/05/2014 [...] P athologist Signature Heparin 10A 0.64 IU/mL [facility] LABS Comment: Therapeutic Range: ?? UFH: [...] General Hospital/ZIP Code Phon e Number [id number] [place] [address] LABS (ABNORMAL) Glucose by meter (02/05/2014 6:04 [...] LAB - BEAKER POCT Performing Organization Address [facility] Phon e Number FV POINT [...] LAB - BEAKER POCT Performing Organization Address [facility] Phon e Number FV POINT [...] LAB - BEAKER POCT Performing Organization Address [facility] Phon e Number FV POINT OF CARE TEST, GLUCOSE POINT OF CARE TEST, GLUCOSE (ABNORMAL) INR (02/05/2014 12:04 PM CDT) P athologist Signature INR 1.24 (H) 0.86 - 1.14 [facility] LABS Specimen Anatomical Collection Method Collection Time Receive d Time (Source) Location / / Volume Laterality Blood specimen 02/05/2014 12:04 4 (specimen) PM CDT 12:10 PM CDT Teresa Wright [facility] LAB - BLOOD ORDERABLES Performing Organization Address City/[facility] Phon e Number [facility] [address] LABS (ABNORMAL) CBC with platelets (02/05/2014 12:04 PM CDT) Patholo gist Method Time Signature WBC 7.4 4.0 - 11.0 [facility] 10e9/L [facility] LABS RBC Count 3.31 (L) 4.4 - 5.9 [facility] 10e12/L [facility] LABS Hemoglobin 10.3 (L) 13.3 - [facility] 17.7 g/dL [facility] LABS Hematocrit 31.0 (L) 40.0 - [facility] 53.0 % [facility] LABS MCV 94 78 - 100 [facility] fl [facility] LABS MCH 31.1 26.5 - [facility] 33.0 pg [facility] LABS MCHC 33.2 31.5 - [facility] 36.5 g/dL [facility] LABS RDW 14.7 10.0 - [facility] 15.0 % [facility] LABS Platelet Count 91 (L) 150 - 450 [facility] 10e9/L [facility] LABS Specimen Anatomical Collection Method Collection Time Receive d Time (Source) Location / / Volume Laterality Blood specimen 02/05/2014 12:04 4 (specimen) PM CDT 12:10 PM CDT Omaira Chavez PA-C LAB - BLOOD ORDERABLES Performing Organization Address City/[facility]/ZIP Code Phon e Number [phone] [place] [address] LABS (ABNORMAL) Glucose by meter (02/05/2014 11:25 [...] Basic metabolic panel (02/05/2014 7:02 AM CDT) [facility] gist Method Time Signature Sodium 143 133 - 144 [facility] mmol/L [facility] LABS Potassium 4.3 3.4 - 5.3 [facility] mmol/L [facility] [place] LABS Chloride 107 94 - 109 [facility] mmol/L [facility] LABS Carbon Dioxide 25 20 - 32 [facility] mmol/L [facility] LABS Anion Gap 10 6 - 17 [facility] mmol/L [facility] LABS Glucose 123 (H) 60 - 99 [facility] mg/dL [facility] LABS Urea Nitrogen 66 (H) 7 - 30 [facility] mg/dL [facility] LABS Creatinine 4.77 (H) 0.66 - [facility] 1.25 mg/dL [facility] [place] LABS GFR Estimate 12 (L) >60 [facility] mL/min/1.7 [place] [facility] LABS GFR Estimate If 15 (L) >60 [facility] Black mL/min/1.7 [place] [facility] LABS Calcium 9.4 8.5 - 10.4 [facility] mg/dL [facility] LABS Specimen Anatomical Collection Method Collection Time Receive d Time (Source) Location / / Volume Laterality Blood specimen 02/05/2014 7:02 AM 014 7:05 (specimen) CDT AM CDT Omaira Chavez PA-C LAB - BLOOD ORDERABLES Performing Organization Address City/[facility]/ZIP Code Phon e Number [address] LABS (ABNORMAL) Phosphorus (02/05/2014 7:02 AM CDT) P athologist Signature Phosphorus 5.7 (H) 2.5 - 4.5 [facility] mg/dL [place] LABS Specimen Anatomical Collection Method Collection Time Receive d Time (Source) Location / / Volume Laterality Blood specimen 02/05/2014 7:02 AM 014 7:05 (specimen) CDT AM CDT Omaira Chavez PA-C LAB - BLOOD ORDERABLES Performing Organization Address City/[facility]/ZIP Code Phon e Number [address] LABS Magnesium (02/05/2014 7:02 AM CDT) P athologist Signature Magnesium 2.0 1.6 - 2.3 [facility] mg/dL [place] LABS Specimen Anatomical Collection Method Collection Time Receive d Time (Source) Location / / Volume Laterality Blood specimen 02/05/2014 7:02 AM 014 7:05 (specimen) CDT AM CDT Omaira Chavez PA-C LAB - BLOOD ORDERABLES Performing Organization Address City/[facility]/ZIP Code Phon e Number [address] LABS (ABNORMAL) CBC with platelets differential (02/05/2014 7:02 AM CDT) Patholo gist Method Time Signature WBC 8.9 4.0 - [facility] 11.0 [place] 10e9/L [place] LABS RBC Count 3.20 (L) 4.4 - 5.9 [facility] 10e12/L [facility] LABS Hemoglobin 9.7 (L) 13.3 - [facility] 17.7 g/dL [facility] LABS Hematocrit 30.0 (L) 40.0 - [facility] 53.0 % [facility] LABS MCV 94 78 - 100 [facility] fl [facility] [place] LABS MCH 30.3 26.5 - [facility] 33.0 pg [facility] LABS MCHC 32.3 31.5 - [facility] 36.5 g/dL [facility] LABS RDW 14.6 10.0 - [facility] 15.0 % [facility]S Platelet Count 96 (L) 150 - 450 [facility] 10e9/L [facility] LABS Diff Method Automated [facility] Method [facility] LABS % Neutrophils 90.2 % [facility] LABS % Lymphocytes 4.4 % [facility] LABS % Monocytes 5.2 % [facility] LABS % Eosinophils 0.0 % [facility] LABS % Basophils 0.0 % [facility] LABS % Immature 0.2 % [facility] Granulocytes [facility] LABS Absolute 8.1 1.6 - 8.3 [facility] Neutrophil 10e9/L [facility] LABS Absolute 0.4 (L) 0.8 - 5.3 [facility] Lymphocytes 10e9/L [facility] LABS Absolute 0.5 0.0 - 1.3 [facility] Monocytes 10e9/L [facility] LABS Absolute 0.0 0.0 - 0.7 [facility] Eosinophils 10e9/L [facility] LABS Absolute 0.0 0.0 - 0.2 [facility] Basophils 10e9/L [facility] LABS Abs Immature 0.0 0 - 0.4 [facility] Granulocytes 10e9/L [facility] LABS Specimen Anatomical Collection Method Collection Time Receive d Time (Source) Location / / Volume Laterality Blood specimen 02/05/2014 7:02 AM 014 7:05 (specimen) CDT AM CDT Omaira Chavez PA-C LAB - BLOOD ORDERABLES Performing Organization Address City/State/ZIP Code Phon e Number [facility] [address] [place] [address] [facility] LABS (ABNORMAL) Parathormone intact (02/05/2014 7:02 AM CDT) Patholo gist Method Time Signature Parathyroid 362 (H) 12 - 72 [facility] Hormone Intact pg/mL [facility] LABS Specimen Anatomical Collection Method Collection Time Receive d Time (Source) Location / / Volume Laterality Blood specimen 02/05/2014 7:02 AM 014 7:05 (specimen) CDT AM CDT Sina Robison MD LAB - BLOOD ORDERABLES Performing Organization Address City/[facility]/ZIP Code Phon e Number [facility] [address] LABS (ABNORMAL) Ferritin (02/05/2014 7:02 AM CDT) athologist Signature Ferritin 932 (H) 20 - 300 [facility] ng/mL [place] LABS Specimen Anatomical Collection Method Collection Time Receive d Time (Source) Location / / Volume Laterality Blood specimen 02/05/2014 7:02 AM 014 7:05 (specimen) CDT AM CDT Sina Robison MD LAB - BLOOD ORDERABLES Performing Organization Address City/State/ZIP Code Phon e Number [facility] [address] LABS (ABNORMAL) Iron and iron binding capacity (02/05/2014 7:02 AM CDT) Analysis Performed At Patho logist Time Signature Iron 119 35 - 180 [facility] ug/dL [facility] LABS Iron Binding 207 (L) 240 - 430 [facility] Cap ug/dL [facility] LABS Iron Saturation 58 (H) 15 - 46 % [facility] Index [facility] LABS Specimen Anatomical Collection Method Collection Time Receive d Time (Source) Location / / Volume Laterality Blood specimen 02/05/2014 7:02 AM 014 7:05 (specimen) CDT AM CDT Sina Robison MD LAB - BLOOD ORDERABLES Performing Organization Address City/[facility]/ZIP Code Phon e Number [facility] [address] LABS (ABNORMAL) Glucose by meter (02/05/2014 [...] LAB - BEAJ POCT Performing Organization Address [facility] Code Phon e Number FV [...] BEAJ POCT Performing Organization Address City/[facility] Code Phon e Number FV [...] BEAJ POCT Performing Organization Address City/[facility] Code Phon e Number FV [...] BEAJ POCT Performing Organization Address City/[facility] Phon e Number FV POINT [...] LAB - BEAJ POCT Performing Organization Address [facility] Phon e Number FV POINT [...] LAB - BEAJ POCT Performing Organization Address [facility] Phon e Number FV POINT [...] LARES - BEAJ POCT Performing Organization Address [facility] Phon e Number FV POINT [...] Carr MD ECG ORDERABLES Performing Organization Address [facility] Phon e Number RADIOLOGY RESULTS (ABNORMAL) Glucose by meter (02/04/2014 10:56 PM CDT) P athologist Signature Glucose 161 (H) 60 - 99 POINT OF CARE mg/dL TEST, GLUCOSE Specimen Anatomical Collection Method Collection Time Receive d Time (Source) Location / / Volume Laterality 02/04/2014 10:56 02/04/2014 PM CDT 11:00 PM CDT Migel LARES - ROBERT POCT Performing Organization Address [facility] Phon e Number FV POINT [...] LARES - ROBERT POCT Performing Organization Address [facility] Phon e Number FV POINT [...] CDT Migel JONES POCT Performing Organization Address [facility] Phon e Number FV POINT [...] Troponin I 0.016 0.000 - [facility] 0.034 ug/L [place] LABS Specimen Anatomical Collection Method Collection Time Receive d Time (Source) Location / / Volume Laterality Blood specimen 02/04/2014 7:10 PM 014 7:23 (specimen) CDT PM CDT Adeline Diaz MD LAB - BLOOD ORDERABLES Performing Organization Address City/[facility]/ZIP Code Phon e Number [id number] [place] [address] LABS (ABNORMAL) Glucose by meter (02/04/2014 7:01 [...] Troponin I 0.025 0.000 - [facility] 0.034 ug/L CAMPUS LABS Specimen Anatomical Collection Method Collection Time Receive d Time (Source) Location / / Volume Laterality Blood specimen 02/04/2014 12:42 4 (specimen) PM CDT 12:45 PM CDT Adeline Diaz MD LAB - BLOOD ORDERABLES Performing Organization Address City/State/ZIP Code Phon e Number [address] [address] [facility] LABS (ABNORMAL) Glucose by meter (02/04/2014 12:27 PM CDT) P athologist Signature Glucose 140 (H) 60 - 99 POINT OF CARE mg/dL TEST, GLUCOSE Specimen Anatomical Collection Method Collection Time Receive d Time (Source) Location / / Volume Laterality 02/04/2014 12:27 02/04/2014 PM CDT 12:30 PM CDT Migel Merchant MD LAB - BEAJ POCT Performing Organization Address [facility] Phon e Number FV POINT [...] LAB - BEAJ POCT Performing Organization Address [facility] Phon e Number FV POINT [...] LAB - BEAJ POCT Performing Organization Address [facility] Phon e Number FV POINT OF CARE TEST, GLUCOSE POINT OF CARE TEST, GLUCOSE EKG 12-lead, complete (02/04/2014 9:21 AM CDT) [facility] gist Method Time Signature Interpretation ECG Click View RADIOLOGY Image link RESULTS to view waveform and result Specimen (Source) Anatomical Collection Method Collection Time Re ceived Time Location / / Volume Laterality 02/04/2014 9:21 AM CDT Omaira Chavez PA-C ECG ORDERABLES Performing Organization Address [facility] Phon e Number RADIOLOGY RESULTS (ABNORMAL) Glucose by meter (02/04/2014 9:02 AM CDT) P athologist Signature Glucose 203 (H) 60 - 99 POINT OF CARE mg/dL TEST, GLUCOSE Specimen Anatomical Collection Method Collection Time Receive d Time (Source) Location / / Volume Laterality 02/04/2014 9:02 AM 4 9:05 CDT AM CDT Migel Merchant MD LAB - BEAKER POCT Performing Organization Address [facility] Phon e Number FV POINT [...] LAB - BEAJ POCT Performing Organization Address [facility] Phon e Number FV POINT [...] LAB - BEAJ POCT Performing Organization Address [facility] Phon e Number FV POINT OF CARE TEST, GLUCOSE POINT OF CARE TEST, GLUCOSE EKG 12-lead, complete (02/04/2014 7:03 AM CDT) [facility] Method Time Signature Interpretation ECG Click View RADIOLOGY Image link RESULTS to view waveform and result Specimen (Source) Anatomical Collection Method Collection Time Re ceived Time Location / / Volume Laterality 02/04/2014 7:03 AM CDT Caitlin Owens MD ECG ORDERABLES Performing Organization Address [facility] Phon e Number RADIOLOGY RESULTS [...] Troponin I ES <0.012 0.000 - [facility] [place] 0.034 ug/L CAMPUS LABS Specimen Anatomical Collection Method Collection Time Receive d Time (Source) Location / / Volume Laterality 02/04/2014 5:49 AM 4 5:51 CDT AM CDT Caitlin Owens MD LAB - BLOOD ORDERABLES Performing Organization Address City/State/ZIP Code Phon e Number [id number] [place] [address] UNIVERSITY CAMPUS LABS (ABNORMAL) Basic metabolic panel (02/04/2014 5:49 AM CDT) Patholo gist Method Time Signature Sodium 142 133 - 144 [facility] mmol/L [facility]AMP[facility] LABS Potassium 4.9 3.4 - 5.3 [facility] mmol/L [facility] LABS Chloride 107 94 - 109 [facility] mmol/L UN[facility]ITY [place] LABS Carbon Dioxide 23 20 - 32 [facility] mmol/L UN[facility]ITY [place] LABS Anion Gap 12 6 - 17 [facility] mmol/L UNIVERSITY [place] LABS Glucose 151 (H) 60 - 99 [facility] mg/dL [facility] LABS Urea Nitrogen 57 (H) 7 - 30 [facility] mg/dL UNIVERSITY [place] LABS Creatinine 5.94 (H) 0.66 - [facility] 1.25 mg/dL UNIVERSITY [place] LABS GFR Estimate 10 (L) >60 [facility] mL/min/1.7 UNIVERSITY m2 CAMPUS LABS GFR Estimate If 12 (L) >60 [facility] Black mL/min/1.7 [place] m2 CAMPUS LABS Calcium 9.4 8.5 - 10.4 [facility] mg/dL [facility] LABS Specimen Anatomical Collection Method Collection Time Receive d Time (Source) Location / / Volume Laterality Blood specimen 02/04/2014 5:49 AM 014 5:51 (specimen) CDT AM CDT Omaira Chavez PA-C LAB - BLOOD ORDERABLES Performing Organization Address City/[facility]/ZIP Code Phon e Number [address] LABS (ABNORMAL) Phosphorus (02/04/2014 5:49 AM CDT) P athologist Signature Phosphorus 6.3 (H) 2.5 - 4.5 [facility] mg/dL [place] LABS Specimen Anatomical Collection Method Collection Time Receive d Time (Source) Location / / Volume Laterality Blood specimen 02/04/2014 5:49 AM 014 5:51 (specimen) CDT AM CDT Omaira Chavez PA-C LAB - BLOOD ORDERABLES Performing Organization Address City/[facility]/ZIP Code Phon e Number [address] LABS Magnesium (02/04/2014 5:49 AM CDT) athologist Signature Magnesium 2.1 1.6 - 2.3 [facility] mg/dL [place] LABS Specimen Anatomical Collection Method Collection Time Receive d Time (Source) Location / / Volume Laterality Blood specimen 02/04/2014 5:49 AM 014 5:51 (specimen) CDT AM CDT Omaira Chavez PA-C LAB - BLOOD ORDERABLES Performing Organization Address City/[facility]/ZIP Code Phon e Number [address] LABS (ABNORMAL) CBC with platelets differential (02/04/2014 5:49 AM CDT) [facility] Method Time Signature WBC 13.8 (H) 4.0 - [facility] 11.0 [place] 10e9/L [place] LABS RBC Count 3.10 (L) 4.4 - 5.9 [facility] 10e12/L [facility] LABS Hemoglobin 9.5 (L) 13.3 - [facility] 17.7 g/dL [facility] LABS Hematocrit 28.7 (L) 40.0 - [facility] 53.0 % [facility] LABS MCV 93 78 - 100 [facility] fl [facility] LABS MCH 30.6 26.5 - [facility] 33.0 pg [facility] LABS MCHC 33.1 31.5 - [facility] 36.5 g/dL [facility] LABS RDW 14.6 10.0 - [facility] 15.0 % [facility] LABS Platelet Count 91 (L) 150 - 450 [facility] 10e9/L [facility] LABS Diff Method Automated [facility] Method [facility] LABS % Neutrophils 95.8 % [facility] LABS % Lymphocytes 1.2 % [facility] LABS % Monocytes 2.8 % [facility] LABS % Eosinophils 0.0 % [facility] % Basophils 0.0 % [facility] % Immature 0.2 % [facility] Granulocytes [facility] LABS Absolute 13.2 (H) 1.6 [...] 0 - 0.4 [facility] Granulocytes 10e9/L [facility] LABS Specimen Anatomical Collection Method Collection Time Receive d Time (Source) Location / / Volume Laterality Blood specimen 02/04/2014 5:49 AM 014 5:51 (specimen) CDT AM CDT Omaira Chavez PA-C LAB - BLOOD ORDERABLES Performing Organization Address City/State/ZIP Code Phon e Number [phone] [place] [address] LABS (ABNORMAL) Glucose by meter (02/04/2014 5:33 [...] AM 4 4:00 CDT AM CDT Migel Merchnat MD LAB - BEAJ POCT Performing Organization Address [facility] Phon e Number FV POINT [...] LARES - ROBERT POCT Performing Organization Address [facility] Phon e Number FV POINT [...] LARES - ROBERT POCT Performing Organization Address [facility] Phon e Number FV POINT [...] Potassium 4.8 3.4 - 5.3 [facility] mmol/L CAMPUS LABS Specimen Anatomical Collection Method Collection Time Receive d Time (Source) Location / / Volume Laterality Blood specimen 02/03/2014 10:16 4 (specimen) PM CDT 10:19 PM CDT Caitlin Owens MD LAB - BLOOD ORDERABLES Performing Organization Address City/[facility]/ZIP Code Phon e Number [facility] [address] LABS (ABNORMAL) Hemoglobin (02/03/2014 10:16 PM CDT) athologist Signature Hemoglobin 9.4 (L) 13.3 - 17.7 [facility] g/dL CAMPUS LABS Specimen Anatomical Collection Method Collection Time Receive d Time (Source) Location / / Volume Laterality Blood specimen 02/03/2014 10:16 4 (specimen) PM CDT 10:19 PM CDT Caitlin Owens MD LAB - BLOOD ORDERABLES Performing Organization Address City/[facility]/ZIP Code Phon e Number [facility] [address] LABS (ABNORMAL) Glucose by meter (02/03/2014 9:55 PM CDT) P athologist Signature Glucose 167 (H) 60 - 99 POINT OF CARE mg/dL TEST, GLUCOSE Specimen Anatomical Collection Method Collection Time Receive d Time (Source) Location / / Volume Laterality 02/03/2014 9:55 PM 4 CDT 10:00 PM CDT Migel Merchant MD LAB - ROBERT POCT Performing Organization Address [facility]/ZIP Code Phon e Number [...] LAB - ROBERT POCT Performing Organization Address [facility] Phon e Number FV POINT [...] LAB - BEAJ POCT Performing Organization Address [facility] Phon e Number FV POINT [...] LAB - BEAJ POCT Performing Organization Address [facility] Phon e Number FV POINT OF CARE TEST, GLUCOSE POINT OF CARE TEST, GLUCOSE Potassium (02/03/2014 6:52 PM CDT) P athologist Signature Potassium 4.7 3.4 - 5.3 [facility] mmol/L CAMPUS LABS Specimen Anatomical Collection Method Collection Time Receive d Time (Source) Location / / Volume Laterality Blood specimen 02/03/2014 6:52 PM 014 6:53 (specimen) CDT PM CDT Caitlin Owens MD LAB - BLOOD ORDERABLES Performing Organization Address City/[facility]/ZIP Code Phon e Number [address] LABS (ABNORMAL) Hemoglobin (02/03/2014 6:52 PM CDT) athologist Signature Hemoglobin 9.6 (L) 13.3 - 17.7 [facility] g/dL CAMPUS LABS Specimen Anatomical Collection Method Collection Time Receive d Time (Source) Location / / Volume Laterality Blood specimen 02/03/2014 6:52 PM 014 6:53 (specimen) CDT PM CDT Caitlin Owens MD LAB - BLOOD ORDERABLES Performing Organization Address [facility] Code Phon e Number [phone] [place] [address] LABS (ABNORMAL) Glucose by meter (02/03/2014 6:00 [...] Potassium 4.7 3.4 - 5.3 [facility] mmol/L CAMPUS LABS Specimen Anatomical Collection Method Collection Time Receive d Time (Source) Location / / Volume Laterality Blood specimen 02/03/2014 1:41 PM 014 1:43 (specimen) CDT PM CDT Caitlin Owens MD LAB - BLOOD ORDERABLES Performing Organization Address City/State/ZIP Code Phon e Number [phone] [place] [address] LABS (ABNORMAL) Hemoglobin (02/03/2014 1:41 PM CDT) P athologist Signature Hemoglobin 9.8 (L) 13.3 - 17.7 [facility] g/dL CAMPUS LABS Specimen Anatomical Collection Method Collection Time Receive d Time (Source) Location / / Volume Laterality Blood specimen 02/03/2014 1:41 PM 2 014 1:43 (specimen) CDT PM CDT Caitlin Owens MD LAB - BLOOD ORDERABLES Performing Organization Address City/State/ZIP Code Phon e Number [address] [address] [facility] LABS (ABNORMAL) Glucose by meter (02/03/2014 [...] Potassium 4.8 3.4 - 5.3 [facility] mmol/L CAMPUS LABS Specimen Anatomical Collection Method Collection Time Receive d Time (Source) Location / / Volume Laterality Blood specimen 02/03/2014 10:11 4 (specimen) AM CDT 10:23 AM CDT Caitlin Owens MD LAB - BLOOD ORDERABLES Performing Organization Address City/[facility]/ZIP Code Phon e Number [address] LABS (ABNORMAL) Hemoglobin (02/03/2014 10:11 AM CDT) P athologist Signature Hemoglobin 9.7 (L) 13.3 - 17.7 [facility] g/dL [place] LABS Specimen Anatomical Collection Method Collection Time Receive d Time (Source) Location / / Volume Laterality Blood specimen 02/03/2014 10:11 4 (specimen) AM CDT 10:23 AM CDT Caitlin Owens MD LAB - BLOOD ORDERABLES Performing Organization Address [facility] Phon e Number [address] LABS (ABNORMAL) Glucose by meter (02/03/2014 [...] Basic metabolic panel (02/03/2014 5:38 AM CDT) [facility] gist Method Time Signature Sodium 141 133 - 144 [facility] mmol/L [facility] LABS Potassium 4.4 3.4 - 5.3 [facility] mmol/L [facility] LABS Chloride 105 94 - 109 [facility] mmol/L [facility] LABS Carbon Dioxide 20 20 - 32 [facility] mmol/L [facility] LABS Anion Gap 15 6 - 17 [facility] mmol/L [facility] LABS Glucose 170 (H) 60 - 99 [facility] mg/dL [facility] LABS Urea Nitrogen 49 (H) 7 - 30 [facility] mg/dL [facility] LABS Creatinine 6.38 (H) 0.66 - [facility] 1.25 mg/dL [facility] LABS GFR Estimate 9 (L) >60 [facility] mL/min/1.7 [place] m2 [place] LABS GFR Estimate If 11 (L) >60 [facility] Black mL/min/1.7 [place] m2 CAMPUS LABS Calcium 9.1 8.5 - 10.4 [facility] mg/dL [facility] LABS Specimen Anatomical Collection Method Collection Time Receive d Time (Source) Location / / Volume Laterality Blood specimen 02/03/2014 5:38 AM 014 5:40 (specimen) CDT AM CDT Omaira Chavez PA-C LAB - BLOOD ORDERABLES Performing Organization Address City/[facility]/ZIP Code Phon e Number [facility] [address] LABS (ABNORMAL) Phosphorus (02/03/2014 5:38 AM CDT) P athologist Signature Phosphorus 4.7 (H) 2.5 - 4.5 [facility] [place] mg/dL [place] LABS Specimen Anatomical Collection Method Collection Time Receive d Time (Source) Location / / Volume Laterality Blood specimen 02/03/2014 5:38 AM 014 5:40 (specimen) CDT AM CDT Omaira Chavez PA-C LAB - BLOOD ORDERABLES Performing Organization Address City/State/ZIP Code Phon e Number [facility] [address] LABS Magnesium (02/03/2014 5:38 AM CDT) P athologist Signature Magnesium 2.0 1.6 - 2.3 [facility] [place] mg/dL [place] LABS Specimen Anatomical Collection Method Collection Time Receive d Time (Source) Location / / Volume Laterality Blood specimen 02/03/2014 5:38 AM 014 5:40 (specimen) CDT AM CDT Omaira Chavez PA-C LAB - BLOOD ORDERABLES Performing Organization Address City/State/ZIP Code Phon e Number [phone] [place] [address] [facility] LAB[facility] (ABNORMAL) CBC with platelets differential (02/03/2014 5:38 AM CDT) [facility] gist Method Time Signature WBC 13.2 (H) 4.0 - [facility] 11.0 UNIVERSITY 10e9/L CAMPUS LABS RBC Count 3.20 (L) 4.4 - 5.9 [facility] 10e12/L [facility] LABS Hemoglobin 9.9 (L) 13.3 - [facility] 17.7 g/dL [facility] LABS Hematocrit 30.2 (L) 40.0 - [facility] 53.0 % [facility] LABS MCV 94 78 - 100 [facility] fl [facility] LABS MCH 30.9 26.5 - [facility] 33.0 pg [facility] LABS MCHC 32.8 31.5 - [facility] 36.5 g/dL [facility] LABS RDW 14.5 10.0 - [facility] 15.0 % [facility] LABS Platelet Count 108 (L) 150 - 450 [facility] 10e9/L [facility] LABS Diff Method Automated [facility] Method [facility] LABS % Neutrophils 96.9 % [facility] LABS % Lymphocytes 0.7 % [facility] LABS % Monocytes 2.1 % [facility] LABS % Eosinophils 0.0 % [facility] LABS % Basophils 0.1 % [facility] LABS % Immature 0.2 % [facility] Granulocytes [facility] LABS Absolute 12.8 (H) 1.6 - 8.3 [facility] Neutrophil 10e9/L [facility] LABS Absolute 0.1 (L) 0.8 [...] 0 - 0.4 [facility] Granulocytes 10e9/L [facility] LABS Specimen Anatomical Collection Method Collection Time Receive d Time (Source) Location / / Volume Laterality Blood specimen 02/03/2014 5:38 AM 014 5:40 (specimen) CDT AM CDT Omaira Chavez PA-C LAB - BLOOD ORDERABLES Performing Organization Address City/[facility]/ZIP Code Phon e Number [facility] [address] LABS (ABNORMAL) Hemoglobin A1c (02/03/2014 5:38 AM CDT) Analysis Performed At Patho logist Time Signature Hemoglobin A1C 6.2 (H) 4.3 - 6.0 [facility] Specimen Anatomical Collection Method Collection Time Receive d Time (Source) Location / / Volume Laterality Blood specimen 02/03/2014 5:38 AM 014 5:40 (specimen) CDT AM CDT Caitlin Owens MD LAB - BLOOD ORDERABLES Performing Organization Address City/[facility]/ZIP Code Phon e Number [address] LABS (ABNORMAL) Glucose by meter (02/03/2014 [...] Potassium 4.7 3.4 - 5.3 [facility] mmol/L CAMPUS LABS Specimen Anatomical Collection Method Collection Time Receive d Time (Source) Location / / Volume Laterality Blood specimen 02/03/2014 1:18 AM 014 1:20 (specimen) CDT AM CDT Caitlin Owens MD LAB - BLOOD ORDERABLES Performing Organization Address City/[facility]/ZIP Code Phon e Number [address] [address] [facility] LABS (ABNORMAL) Hemoglobin (02/03/2014 1:18 AM CDT) athologist Signature Hemoglobin 9.8 (L) 13.3 - 17.7 [facility] g/dL [place] LABS Specimen Anatomical Collection Method Collection Time Receive d Time (Source) Location / / Volume Laterality Blood specimen 02/03/2014 1:18 AM 014 1:20 (specimen) CDT AM CDT Caitlin Owens MD LAB - BLOOD ORDERABLES Performing Organization Address City/State/ZIP Code Phon e Number [facility] [address] [place] [address] [facility] LABS (ABNORMAL) Glucose by meter (02/03/2014 [...] Phosphorus 4.4 2.5 - 4.5 [facility] mg/dL [place] LABS Specimen Anatomical Collection Method Collection Time Receive d Time (Source) Location / / Volume Laterality Blood specimen 02/02/2014 10:50 4 (specimen) PM CDT 11:06 PM CDT Caitlin Owens MD LAB - BLOOD ORDERABLES Performing Organization Address City/State/ZIP Code Phon e Number [facility] [address] [place] [address] [facility] LABS Magnesium (02/02/2014 10:50 PM CDT) P athologist Signature Magnesium 1.8 1.6 - 2.3 [facility] UNIVERSITY mg/dL CAMPUS LABS Specimen Anatomical Collection Method Collection Time Receive d Time (Source) Location / / Volume Laterality Blood specimen 02/02/2014 10:50 4 (specimen) PM CDT 11:06 PM CDT Caitlin Owens MD LAB - BLOOD ORDERABLES Performing Organization Address City/[facility]/ZIP Code Phon e Number [facility] [address] [place] [address] [facility] LABS (ABNORMAL) Basic metabolic panel (02/02/2014 10:50 PM CDT) [facility] Method Time Signature Sodium 138 133 - 144 [facility] mmol/L [facility]S Potassium 4.5 3.4 - 5.3 [facility] mmol/L [facility] Chloride 104 94 - 109 [facility] mmol/L [facility] Carbon Dioxide 25 20 - 32 [facility] mmol/L [facility] Anion Gap 10 6 - 17 [facility] mmol/L [facility] Glucose 134 (H) 60 - 99 [facility] mg/dL [facility] Urea Nitrogen 44 (H) 7 - 30 [facility] mg/dL [facility] Creatinine 6.14 (H) 0.66 - [facility] 1.25 mg/dL [facility] GFR Estimate 9 (L) >60 [facility] mL/min/1.7 [place] [facility] GFR Estimate If 11 (L) >60 [facility] Black mL/min/1.7 [place] [facility] Calcium 8.8 8.5 - 10.4 [facility] mg/dL [facility] Specimen Anatomical Collection Method Collection Time Receive d Time (Source) Location / / Volume Laterality Blood specimen 02/02/2014 10:50 4 (specimen) PM CDT 11:06 PM CDT Caitlin Owens MD LAB - BLOOD ORDERABLES Performing Organization Address City/State/ZIP Code Phon e Number [facility] [address] [place] [address] [facility] LABS (ABNORMAL) CBC with platelets differential (02/02/2014 10:50 PM CDT) Patholo gist Method Time Signature WBC 8.2 4.0 - [facility] 11.0 UNIVERSITY 10e9/L [place] [facility] RBC Count 3.34 (L) 4.4 - 5.9 [facility] 10e12/L [facility] Hemoglobin 10.3 (L) 13.3 - [facility] 17.7 g/dL [facility] Hematocrit 30.9 (L) 40.0 - [facility] 53.0 % [facility] MCV 93 78 - 100 [facility] fl [facility] MCH 30.8 26.5 - [facility] 33.0 pg [facility] MCHC 33.3 31.5 - [facility] 36.5 g/dL [facility] RDW 14.3 10.0 - [facility] 15.0 % [facility] Platelet Count 79 (L) 150 - 450 [facility] 10e9/L [facility] Diff Method Automated [facility] Method [facility] % Neutrophils 96.7 % [facility] % Lymphocytes 1.6 % [facility] % Monocytes 1.2 % [facility] % Eosinophils 0.4 % [facility] % Basophils 0.0 % [facility] % Immature 0.1 % [facility] Granulocytes [facility] Absolute 7.9 1.6 - 8.3 [facility] Neutrophil 10e9/L [facility] Absolute 0.1 (L) 0.8 - 5.3 [facility] Lymphocytes 10e9/L [facility] Absolute 0.1 0.0 - 1.3 [facility] Monocytes 10e9/L [facility] Absolute 0.0 0.0 - 0.7 [facility] Eosinophils 10e9/L [facility] Absolute 0.0 0.0 - 0.2 [facility] Basophils 10e9/L [facility] Abs Immature 0.0 0 - 0.4 [facility] Granulocytes 10e9/L [facility] Specimen Anatomical Collection Method Collection Time Receive d Time (Source) Location / / Volume Laterality Blood specimen 02/02/2014 10:50 4 (specimen) PM CDT 11:06 PM CDT Caitlin Owens MD LAB - BLOOD ORDERABLES Performing Organization Address City/State/ZIP Code Phon e Number [facility] [address] [place] [address] [facility] (ABNORMAL) VENOUS PANEL (02/02/2014 10:09 PM CDT) Patholo gist Method Time Signature Ph Venous 7.31 (L) 7.32 - [facility] 7.43 pH [facility] PCO2 Venous 52 (H) 40 - 50 [facility] mm Hg [facility] PO2 Venous 34 25 - 47 [facility] mm Hg [facility] Bicarbonate 26 21 - 28 [facility] Venous mmol/L [facility] Base Deficit 0.3 mmol/L [facility] Venous [facility] Comment: Reference range: -7.7 to 1.9 F[facility] LAB[facility] Sodium 137 133 - 144 mmol/L [facility] LABS Potassium 4.4 3.4 - 5.3 mmol/L [facility] LABS Hemoglobin 10.0 (L) 13.3 - 17.7 g/dL [facility] LABS Glucose 116 (H) 60 - 99 mg/dL [facility] LABS Calcium Ionized Whole Blood 4.8 4.4 - 5.2 mg/dL [facility] LABS Specimen Anatomical Collection Method Collection Time Receive d Time (Source) Location / / Volume Laterality 02/02/2014 10:09 02/02/2014 PM CDT 10:14 PM CDT Migel Merchant MD LAB - BLOOD ORDERABLES Performing Organization Address City/State/ZIP Code Phon e Number [address] LABS (ABNORMAL) Glucose by meter (02/02/2014 [...] 7.35 7.32 - [facility] 7.43 pH [facility] PCO2 Venous 50 40 - 50 mm [facility] Hg [facility] PO2 Venous 46 25 - 47 mm [facility] Hg [facility] Bicarbonate 28 21 - 28 [facility] Venous mmol/L [facility] Base Excess 1.8 mmol/L [facility] Venous [facility] Comment: Reference range: -7.7 to 1.9 FIO2 100% [facility] Sodium 141 133 - 144 mmol/L [facility] LABS Potassium 3.7 3.4 - 5.3 mmol/L [facility] LABS Hemoglobin 10.3 (L) 13.3 - 17.7 g/dL [facility] LABS Glucose 76 60 - 99 mg/dL [facility]S Calcium Ionized Whole Blood 4.8 4.4 - 5.2 mg/dL [facility] LABS Specimen Anatomical Collection Method Collection Time Receive d Time (Source) Location / / Volume Laterality 02/02/2014 6:40 PM 4 6:44 CDT PM CDT Migel Merchant MD LAB - BLOOD ORDERABLES Performing Organization Address City/[facility]/ZIP Code Phon e Number [address] [address] [facility] LABS Glucose by meter (02/02/2014 5:11 [...] 3:45 PM 4 3:50 CDT PM CDT iMgel Merchant MD [facility] [place] POCT Performing Organization Address City/State/ZIP Code Phon [...] 2:07 PM CDT) [facility] Method Time Signature Unit Number [id number] [facility] LABS Blood Red Blood [facility] Component Cells [facility] Leukocyte [place] [facility] Reduced Division 00 [facility] LABS Status of No longer [facility] Unit available [facility] 02/06/2014 HOSPITAL LAB 0300 Specimen Anatomical Collection Method Collection Time Receive d Time (Source) Location / / Volume Laterality 02/02/2014 2:07 PM 4 2:10 CDT PM CDT Caitlin Owens MD LABORATORY Performing Organization Address City/[facility]/ZIP Code Phon santino Acevedo [place] [address] [address] [place], [place] [address] [facility] LABS [facility] LAB Blood component (02/02/2014 2:07 PM CDT) [facility] gist Method Time Signature Unit Number [id number] [facility] LABS Blood Red Blood [facility] Component Cells [facility] LABS Reduced Division 00 [facility] LABS Status of No longer [place] Unit available [facility] 02/06/2014 HOSPITAL LAB 0300 Specimen Anatomical Collection Method Collection Time Receive d Time (Source) Location / / Volume Laterality 02/02/2014 2:07 PM 4 2:10 CDT PM CDT Caitlin Owens MD LABORATORY Performing Organization Address City/[facility] Code Phon santino Acevedo [place] [address] [place], [place] [address] [facility] LAB ABO/Rh type and screen (02/02/2014 2:07 PM CDT) [facility] gist Method Time Signature Units Ordered 2 [facility] LABS ABO A [facility] RH(D) Pos [facility] LABS Antibody Neg [facility] Screen [facility] LABS Test Valid [facility] Only At [facility] BLOOD BANK Center,Aide LAB w Hospital Specimen 02/05/2014 [facility] BLOOD BANK LAB Crossmatch Red Blood [facility] Cells [facility] LABS Specimen Anatomical Collection Method Collection Time Receive d Time (Source) Location / / Volume Laterality Blood specimen 02/02/2014 2:07 PM 014 2:10 (specimen) CDT PM CDT Caitlin Owens MD LAB - BLOOD BANK TEST ORDER Performing Organization Address City/[facility]/ZIP Code Phon e Number [facility] [address] [place] [address] [facility] LABS [facility] BLOOD BANK LAB (ABNORMAL) Lipid Profile (02/02/2014 2:07 PM CDT) P athologist Signature Cholesterol 135 <200 mg/dL [facility] LABS Comment: LDL Cholesterol is the primary guide to therapy. The NCEP recommends further evaluation of: patients with cholesterol greater than 200 mg/dL if additional risk facto rs are present, cholesterol greater than 240 mg/dL, triglycerides greater than 1 50 mg/dL, or HDL less than 40 mg/dL. Triglycerides 124 0 - 150 mg/dL [facility] LABS HDL Cholesterol 34 (L) >40 mg/dL [facility] LABS LDL Cholesterol Calculated 77 0 - 129 mg/dL [facility] LABS Comment: LDL Cholesterol is the primary guide to therapy: LDL-cholesterol goal in high risk patients is <100 mg/dL and in very high risk patients is <70 mg/dL. VLDL-Cholesterol 25 0 - 30 mg/dL [facility] LABS Cholesterol/HDL Ratio 4.0 0.0 - 5.0 [facility] LABS Specimen Anatomical Collection Method Collection Time Receive d Time (Source) Location / / Volume Laterality Blood specimen 02/02/2014 2:07 PM 014 2:08 (specimen) CDT PM CDT Caitlin Owens MD LAB - BLOOD ORDERABLES Performing Organization Address City/[facility]/ZIP Code Phon e Number [facility] [address] [place] [address] [facility] LABS (ABNORMAL) Hemoglobin A1c (02/02/2014 2:07 PM CDT) Analysis Performed At Patho logist Time Signature Hemoglobin A1C 6.2 (H) 4.3 - 6.0 ON LICENSE OF [facility] LABS Specimen Anatomical Collection Method Collection Time Receive d Time (Source) Location / / Volume Laterality Blood specimen 02/02/2014 2:07 PM 014 2:08 (specimen) CDT PM CDT Caitlin Owens MD LAB - BLOOD ORDERABLES Performing Organization Address City/State/ZIP Code Phon e Number [facility] [address] [place] [address] [facility] LABS Hepatitis C antibody (02/02/2014 2:07 PM CDT) [facility] Signature Hepatitis C Negative NEG [facility] Antibody MICROBIOLOGY Specimen Anatomical Collection Method Collection Time Receive d Time (Source) Location / / Volume Laterality Blood specimen 02/02/2014 2:07 PM 02/02/2 014 2:08 (specimen) CDT PM CDT Caitlin Owens MD LAB - BLOOD ORDERABLES Performing Organization Address City/[facility]/ZIP Code Phon e Number [facility] [address] [place] [address] [facility] MICROBIOLOGY Hepatitis B core antibody IgM (02/02/2014 2:07 PM CDT) [facility] Signature Hepatitis B Negative NEG [facility] Core IgM MICROBIOLOGY Specimen Anatomical Collection Method Collection Time Receive d Time (Source) Location / / Volume Laterality Blood specimen 02/02/2014 2:07 PM 014 2:08 (specimen) CDT PM CDT Caitlin Owens MD LAB - BLOOD ORDERABLES Performing Organization Address City/State/ZIP Code Phon e Number [facility] [address] [place], [place] [id number] [place] [address] MICROBIOLOGY Hepatitis B surface antigen (02/02/2014 2:07 PM CDT) [facility] Signature Hep B Surface Negative NEG [facility] Agn MICROBIOLOGY Specimen Anatomical Collection Method Collection Time Receive d Time (Source) Location / / Volume Laterality Blood specimen 02/02/2014 2:07 PM 014 2:08 (specimen) CDT PM CDT Caitlin Owens MD LAB - BLOOD ORDERABLES Performing Organization Address City/[facility]/ZIP Code Phon e Number [facility] [address] [place], [place] [id number] [place] [address] MICROBIOLOGY HIV Antigen Antibody Combo (02/02/2014 2:07 PM CDT) [facility] Signature HIV Antigen Nonreactive NR [facility] Antibody HIV-1 p24 Ag & HIV-1/HIV-2 Ab Not Detected [facility] LABS Specimen Anatomical Collection Method Collection Time Receive d Time (Source) Location / / Volume Laterality Blood specimen 02/02/2014 2:07 PM 014 2:08 (specimen) CDT PM CDT Caitlin Owens MD LAB - BLOOD ORDERABLES Performing Organization Address City/[facility]/ZIP Code Phon e Number [address] LABS EBV Capsid Antibody IgM (02/02/2014 2:07 PM CDT) [facility] Method Time Signature EBV Capsid <0.2 0.0 - 0.8 [facility] Antibody IgM No detectable antibody. [facility] [place] LABS Specimen Anatomical Collection Method Collection Time Receive d Time (Source) Location / / Volume Laterality Blood specimen 02/02/2014 2:07 PM 014 2:08 (specimen) CDT PM CDT Caitlin Owens MD LAB - BLOOD ORDERABLES Performing Organization Address [facility] Code Phon e Number [address] LABS (ABNORMAL) EBV Capsid Antibody IgG (02/02/2014 2:07 PM CDT) [facility] Method Time Signature EBV Capsid >8.0 0.0 - 0.8 [facility] Antibody IgG Positive, suggests recent or past exposure [facility] () [place] LABS Specimen Anatomical Collection Method Collection Time Receive d Time (Source) Location / / Volume Laterality Blood specimen 02/02/2014 2:07 PM 014 2:08 (specimen) CDT PM CDT Caitlin Owens MD LAB - BLOOD ORDERABLES Performing Organization Address City/[facility]/ZIP Code Phon e Number [address] LABS CMV antibody IgM (02/02/2014 2:07 PM CDT) [facility] Signature CMV Antibody <0.2 0.0 - 0.8 [facility] IgM Negative [facility] LABS Specimen Anatomical Collection Method Collection Time Receive d Time (Source) Location / / Volume Laterality Blood specimen 02/02/2014 2:07 PM 014 2:08 (specimen) CDT PM CDT Caitlin Owens MD LAB - BLOOD ORDERABLES Performing Organization Address City/[facility]/[place] [address] [facility] LABS (ABNORMAL) CMV Antibody IgG (02/02/2014 2:07 PM CDT) P athologist Signature CMV Antibody 7.8 (H) 0.0 - 0.8 [facility] IgG AI [facility] LABS Comment: Positive Specimen Anatomical Collection Method Collection Time Receive d Time (Source) Location / / Volume Laterality Blood specimen 02/02/2014 2:07 PM 014 2:08 (specimen) CDT PM CDT Caitlin Owens MD LAB - BLOOD ORDERABLES Performing Organization Address City/State/ZIP Code Phon e Number [facility] [address] [place] [address] [facility] LABS (ABNORMAL) Comprehensive metabolic panel (02/02/2014 2:07 PM CDT) Patholo gist Method Time Signature Sodium 141 133 - 144 [facility] mmol/L [facility] LABS Potassium 4.2 3.4 - 5.3 [facility] mmol/L [facility] LABS Chloride 101 94 - 109 [facility] mmol/L [facility] LABS Carbon Dioxide 26 20 - 32 [facility] mmol/L [facility] LABS Anion Gap 13 6 - 17 [facility] mmol/L [facility]S Glucose 112 (H) 60 - 99 [facility] mg/dL [facility] LABS Urea Nitrogen 42 (H) 7 - 30 [facility] mg/dL [facility] LABS Creatinine 6.03 (H) 0.66 - [facility] 1.25 UNIVERSITY mg/dL CAMPUS LABS GFR Estimate 9 (L) >60 [facility] mL/min/1. [address] LABS GFR Estimate If 11 (L) >60 [facility] Black mL/min/1. [address] LABS Calcium 9.9 8.5 - [facility] 10.4 UNIVERSITY mg/dL CAMPUS LABS Bilirubin Total 0.7 0.2 - 1.3 [facility] mg/dL [facility] LABS Albumin 4.2 3.3 - 4.9 [facility] g/dL [facility]S Protein Total 7.5 6.8 - 8.8 [facility] g/dL [facility] LABS Alkaline 88 40 - 150 [facility] Phosphatase U/L [facility]S ALT 33 0 - 70 [facility] U/L [facility]S AST 18 0 - 45 [facility] U/L [facility] LABS Specimen Anatomical Collection Method Collection Time Receive d Time (Source) Location / / Volume Laterality Blood specimen 02/02/2014 2:07 PM 014 2:08 (specimen) CDT PM CDT Caitlin Owens MD LAB - BLOOD ORDERABLES Performing Organization Address City/State/ZIP Code Phon e Number [facility] [address] [place] [address] [facility] (ABNORMAL) CBC with platelets differential (02/02/2014 2:07 PM CDT) [facility] gist Method Time Signature WBC 6.3 4.0 - [facility] 11.0 UNIVERSITY 10e9/L CAMPUS LABS RBC Count 3.71 (L) 4.4 - 5.9 [facility] 10e12/L [facility] LABS Hemoglobin 11.5 (L) 13.3 - [facility] 17.7 g/dL [facility] LABS Hematocrit 33.7 (L) 40.0 - [facility] 53.0 % [facility]S MCV 91 78 - 100 [facility] fl [facility] LABS MCH 31.0 26.5 - [facility] 33.0 pg [facility] LABS MCHC 34.1 31.5 - [facility] 36.5 g/dL [facility] LABS RDW 14.0 10.0 - [facility] 15.0 % UNIVERSITY [place] LABS Platelet Count 110 (L) 150 - 450 [facility] 10e9/L [facility] LABS Diff Method Automated [facility] Method [facility] LABS % Neutrophils 52.4 % [facility] LABS % Lymphocytes 32.1 % [facility] LABS % Monocytes 7.9 % [facility]S % Eosinophils 7.1 % [facility] % Basophils 0.3 % [facility] % Immature 0.2 % [facility] Granulocytes [facility]S Absolute 3.3 1.6 - 8.3 [facility] Neutrophil 10e9/L [facility]S Absolute 2.0 0.8 - 5.3 [facility] Lymphocytes 10e9/L [facility]S Absolute 0.5 0.0 - 1.3 [facility] Monocytes 10e9/L [facility]S Absolute 0.5 0.0 - 0.7 [facility] Eosinophils 10e9/L [facility] Absolute 0.0 0.0 - 0.2 [facility] Basophils 10e9/L [facility]S Abs Immature 0.0 0 - 0.4 [facility] Granulocytes 10e9/L [facility] LABS Specimen Anatomical Collection Method Collection Time Receive d Time (Source) Location / / Volume Laterality Blood specimen 02/02/2014 2:07 PM 014 2:08 (specimen) CDT PM CDT Caitlin Owens MD LAB - BLOOD ORDERABLES Performing Organization Address City/[facility]/ZIP Code Phon e Number [address] LABS Creatinine urine calculation only (02/02/2014 2:00 PM CDT) P athologist Signature Creatinine 88 mg/dL [facility] Urine [place] LABS Specimen Anatomical Collection Method Collection Time Receive d Time (Source) Location / / Volume Laterality 02/02/2014 2:00 PM 4 2:12 CDT PM CDT Caitlin Owens MD LAB - URINE ORDERABLES Performing Organization Address City/[facility] Phon e Number [address] LABS (ABNORMAL) Urine culture (02/02/2014 2:00 PM CDT) Component Value Ref Test Analysis Performed At [facility] Range Method Time Signature Specimen Midstream Urine [facility] Description [facility] LABS Special Specimen received [facility] Requests in preservative MICROBIOLOGY Culture [...] City/[facility]/ZIP Code Phon e Number [address] LABS [facility] MICROBIOLOGY (ABNORMAL) Protein random urine (02/02/2014 2:00 PM CDT) [facility] nivio Method Time Signature Protein Random 1.89 g/L [facility] Urine [facility] LABS Protein Total 2.15 (H) [...] URINE ORDERABLES Performing Organization Address City/[facility]/ZIP Code Phon e Number [address] LABS (ABNORMAL) Routine UA with microscopic (02/02/2014 2:00 PM CDT) Patholo gist Method Time Signature Color Urine Light Yellow [facility] UNIVERSITY [facility]AMP[facility] LABS Appearance Urine Clear [facility] LABS Glucose Urine 70 (A) NEG mg/dL [facility] UNIVERSITY [facility]AMP[facility] LABS Bilirubin Urine Negative NEG [facility] UNIVERSITY [facility]AMP[facility] LABS Ketones Urine Negative NEG mg/dL [facility] UNIVERSITY [place] LABS Specific [place] 1.008 1.003 - [facility] Urine 1.035 UNIVERSITY [...] LABS Source Clean catch [facility] urine [facility] LABS WBC Urine 1 0 [...] URINE ORDERABLES Performing Organization Address City/[facility]/ZIP Code Phon e Number [facility] [address] [place] [address] [facility] LABS (ABNORMAL) Glucose by meter (02/02/2014 [...] 12-lead, tracing only (02/02/2014 1:58 PM CDT) [facility] gist Method Time Signature Interpretation ECG Click View RADIOLOGY Image link RESULTS to view waveform and result Specimen (Source) Anatomical Collection Method Collection Time Re ceived Time Location / / Volume Laterality 02/02/2014 1:58 PM CDT Caitlin Owens MD ECG ORDERABLES Performing Organization Address [facility] Phon e Number RADIOLOGY RESULTS documented [...] dose, When verbally ordered by the prescriber. Baring throat with 1-4 sprays 5 minutes prior [...] 11:15 PM CDT 0.4 mg HYDROmorphone (DILAUDID) ICE SKATING COACH 1 mg/mL Shift Total 02/03/2014 6:24 AM CDT ICE SKATING COACH dose (mg): 0.1, Max ICE SKATING COACH dose (mg): 0.2, Lockout Interval (min): 10 minutes, ICE SKATING COACH Continuous Rate (mg/hr): CONTINUOUS RATE IS NOT [...] dose, When verbally ordered by the prescriber. Baring throat with 1-4 sprays 5 minutes prior [...] Gi isael - Provider: Lynne Gatica [facility] - Reason: Other - Comment: [...] draw. documented in this encounter Care Teams Beam House Inspector Relationship Specialty Start Date End Date Momo Forbes PCP - General [facility] Practice 01/02/14 [place] [id number] Ingrid Santana, RN Registered Nurse Transplant 02/10/12 documented as of this encounter
--- OUTSIDE RECORDS SUMMARY | 2022-05-28 11:25 | XMS_ITS | Encounter Summary ---
:1950 Author Organization [facility] Address [address] [place] [address]. [place] [address] Care Team Providers Name Role Phone Ingrid Santana RN Unavailable Unavailable Momo Forbes Primary Care Provider Encounter Details Date Type Department Care Team Description 02/02/2014 Abstract The Transplant [facility] r 2nd Floor, Clinic [address] [place] [phone] Social History Tobacco Use Types Packs/Day [...] on filedocumented in this encounter Care Teams Hedge Fund Accountant Relationship Specialty Start Date End Date Momo Forbes PCP - General Family Practice 01/02/14 [facility] [address] [place] [address] Ingrid Santana RN Registered Nurse Transplant 02/10/12 documented as of this encounter
--- OUTSIDE RECORDS SUMMARY | 2022-05-28 11:25 | XMS_ITS | Encounter Summary ---
:1950 Author Organization [facility] Address [address] [place] [address] Care Team Providers Name Role Phone Ingrid Santana RN Unavailable Unavailable Momo Forbes Primary Care Provider Encounter Details Date Type Department Care Team Description 02/02/2014 Results Only LABORATORY RESULTS Migel Merchant MD [address] [facility] [address] [place] [address] (Wo rk) Social History Tobacco [...] II Single Antigen (02/02/2014 6:51 PM CDT) [facility] Method Time Signature SA2 Test SA [...] Phon e Number [facility] LABORATORY Immunology/Histocompatabil [place], [place] [address] [facility] [address] [facility] [address], Room 3-580 HISTOTRAC documented in this encounter Visit Diagnoses Not on filedocumented in this encounter Care Teams Marketing Recruiter Relationship Specialty Start Date End Date Momo Forbes PCP - General Family Practice 01/02/14 [facility] [address] [place] [address] Ingrid Santana, RN Registered Nurse Transplant 02/10/12 documented as of this encounter
--- OUTSIDE RECORDS SUMMARY | 2022-05-28 11:25 | XMS_ITS | Encounter Summary ---
:1950 Author Organization [place] Address [facility]0 [facility] [place] [address] Care Team Providers Name Role Phone Ingrid Santana RN Unavailable Unavailable Momo Forbes Primary Care Provider Encounter Details Date Type Department Care Team Description 02/02/2014 Results Only LABORATORY RESULTS Migel Merchant MD [address] [facility] [address] [place] [address] (Wo rk) Social History Tobacco [...] T/B Crossmatch Auto (02/02/2014 6:51 PM CDT) [facility] Method Time Signature Crossmatch Donor:ELINOR GUTHRIE [...] Phon e Number [facility] LABORATORY Immunology/Histocompatabil [place], [place] [address] [facility] [address], Room 3-580 HISTOTRAC documented in this encounter Visit Diagnoses Not on filedocumented in this encounter Care Teams Loan Administrator Relationship Specialty Start Date End Date Momo Forbes PCP - General Family Practice 01/02/14 [facility] [address] [place] [address] Ingrid Santana, RN Registered Nurse Transplant 02/10/12 documented as of this encounter
--- OUTSIDE RECORDS SUMMARY | 2022-05-28 11:25 | XMS_ITS | Encounter Summary ---
:1950 Author Organization [place] Address [facility]0 [facility] [place] [address] Care Team Providers Name Role Phone Ingrid Santana RN Unavailable Unavailable Momo Forbes Primary Care Provider Reason for Visit Reason Comments Transplant Donor culture results Encounter Details Date Type Department Care Team Description 02/04/2014 Documentation Only The Transplant Gladis Yeboah, Transplant (Donor 2nd Floor, Clinic 2A RN culture results) [address] [place] [address] Social History Tobacco Use Types Packs/Day Years [...] and urine cultures have been uploaded into [facility]. Notification sent to Dr. Rust and Dr. Hernandes. documented in this encounter Plan of Treatment Not on filedocumented as of this encounter Visit Diagnoses Not on filedocumented in this encounter Care Teams Differential Specialist Relationship Specialty Start Date End Date Momo Forbes PCP - General Family Practice 01/02/14 [place] [id number] Ingrid Santana, RN Registered Nurse Transplant 02/10/12 documented as of this encounter
--- OUTSIDE RECORDS SUMMARY | 2022-05-28 11:25 | XMS_ITS | Encounter Summary ---
:1950 Author Organization [facility] [place] Address [facility] [place] [address] Care Team Providers Name Role Phone Ingrid Santana RN Unavailable Unavailable Momo Forbes Primary Care Provider Encounter Details Date Type Department Care Team Description 02/02/2014 Results Only LABORATORY RESULTS Migel Merchant MD [address] [place] [address] [address] [place] [address] (Wo rk) Social History Tobacco [...] Crossmatch Allo (02/02/2014 6:51 PM CDT) [facility] Method Time Signature Crossmatch Donor:[id number], ?Crossmatch Date:02/02/2014 HISTOTRAC Result (Note) Serum Date [...] Phon e Number [facility] HLA LABORATORY Immunology/Histocompatabil [place], [place] [address] [facility] [address], Room 3-580 HISTOTRAC documented in this encounter Visit Diagnoses Not on filedocumented in this encounter Care Teams Roving Winder Relationship Specialty Start Date End Date Momo Forbes PCP - General Family Practice 01/02/14 [facility] [address] [place] [address] Ingrid Santana, RN Registered Nurse Transplant 02/10/12 documented as of this encounter
--- OUTSIDE RECORDS SUMMARY | 2022-05-28 11:25 | XMS_ITS | Encounter Summary ---
:1950 Author Organization [place] Address [facility]0 [facility] [place] [address] Care Team Providers Name Role Phone Ingrid Santana RN Unavailable Unavailable Momo Forbes Primary Care Provider Reason for Visit Reason Comments Transplant Encounter Details Date Type Department Care Team Description 02/02/2014 Orders Only Transplant Surgery [place], End stage renal failure Clinic BOGDAN Mae on dialysis (H) 2nd Floor, Clinic 2A (Primary Dx) Tommy [address] [phone] Social History Tobacco Use Types Packs/Day Years [...] disease documented in this encounter Care Teams Rn Emergency Room Relationship Specialty Start Date End Date Momo Forbes PCP - General Family Practice 01/02/14 [place] [id number] Ingrid Santana, RN Registered Nurse Transplant 02/10/12 documented as of this encounter
--- OUTSIDE RECORDS SUMMARY | 2022-05-28 11:25 | XMS_ITS | Encounter Summary ---
:1950 Author Organization [place] Address [address] [place] [address] Care Team Providers Name Role Phone Ingrid Santana RN Unavailable Unavailable Momo Forbes Primary Care Provider Encounter Details Date Type Department Care Team Description 02/02/2014 Results Only LABORATORY RESULTS Migel Merchant MD 420 [facility] [address] [place] [address] (Wo rk) Social History Tobacco [...] I Single Antigen (02/02/2014 6:51 PM CDT) [facility] Method Time Signature SA1 Test [...] Phon e Number [facility] HLA LABORATORY Immunology/Histocompatabil [place], [place] [address] ity [facility] [address] [facility] [address], Room 3-580 HISTOTRAC documented in this encounter Visit Diagnoses Not on filedocumented in this encounter Care Teams Ssn/Ss[employer] Weapons Equipment Operator Relationship Specialty Start Date End Date Momo Forbes PCP - General Family Practice 01/02/14 [facility] [address] [place] [address] Ingrid Santana, RN Registered Nurse Transplant 02/10/12 documented as of this encounter
--- OUTSIDE RECORDS SUMMARY | 2022-05-28 11:26 | XMS_ITS | Encounter Summary ---
:1950 Author Organization [place] Address [address] [place] [address]. [place] [address] Care Team Providers Name Role Phone Ingrid Santana RN Unavailable Unavailable Momo Forbes Primary Care Provider Reason for Visit Auth/Cert - Closed Specialty Diagnoses / Procedures Referred By Contact Refer red To Contact Med Surg Diagnoses end stage renal disease dialysis End stage renal failure on dialysis Renal Failure Uu U7a Procedures TRANSPLANT KIDNEY RECIPIENT DONOR [address] [place] [address] Phone: Referral ID Status Reason Start Date Expiration Date Visits Requ ested Visits Authorized [id number] Closed 02/04/2014 08/03/2014 1 1 Encounter Details Date Type Department Care Team Description 02/02/2014 Anesthesia Event [facility] Joseph Ivey MD XXX RESIGNED XXX [address] [place] [address] PeriOp Services Leigh Ann Blank MD 420 [facility] 294 [place], [place] [address] [address] [place] [address] Anesthesia Record Procedure Summary Procedure [...] Hand Inez Mckeon Sara E RN Saima, NET TECHNICAL ARCHITECT RETIRED ETT 02/02/14; 1753; Airway 02/02/14 1753 [...] 1505 by Strict 1-2 Hour I&O, Rubi Bartohlomew RN Gilbert, Danielle Deep Sedation/Paralysis, M, RN [...] RECIPIENT DONOR - Kidney TXT HPI: Diego Guhtrie is a 63 year old man with [...] Take 1 tablet by mouth daily. B uswwjpk-X-mrffo acid (NEPHROCAPS) 1 MG capsule Take 1 [...] benefits and alternatives discussed with: patient or special service representative. Possibility of blood products discussed. [...] plan were discussed with patient/family or family special service representative. All questions were answered and there was agreement to proceed. History & Physical Review Leigh Ann Blank MD Anesthesiology CA-[phone] 2:47 PM February 02, 2014 Diego Guthrie was seen and examined and the medical history was reviewed with him. The anesthetic plan was discussed, risks were explained and questions were answered. He agrees to proceed as discussed. I have reviewed this note and agree with the assessment and plan. Joseph Ivey M.D. Staff Anesthesiologist [phone] 02/02/2014 4:48 PM documented in this encounter [...] Date/Time Associated Diagnosis Comme nts [facility] AN AL PA CENTRAL Routine 02/02/2014 6:19 PM Re [...] passed easily into [facility]. Hyunnarm Nazia DO AL ANESTHESIA documented in this encounter Visit Diagnoses [...] Intra-op documented in this encounter Care Teams Manager Of Creative Services Relationship Specialty Start Date End Date Momo oFrbes PCP - General Family Practice 01/02/14 [facility] [address] [place] [id number] Ingrid Santana, RN Registered Nurse Transplant 02/10/12 documented as of this encounter
--- OUTSIDE RECORDS SUMMARY | 2022-05-28 11:26 | XMS_ITS | Encounter Summary ---
:1950 Author Organization [facility] Address [address] [place] [address] Care Team Providers Name Role Phone Ingrid Santana RN Unavailable Unavailable Momo Forbes Primary Care Provider Reason for Visit Auth/Cert - Closed Specialty Diagnoses / Procedures Referred By Contact Refer red To Contact Med Surg Diagnoses end stage renal disease dialysis End stage renal failure on dialysis Renal Failure Uu U7a Procedures TRANSPLANT KIDNEY RECIPIENT DONOR [address] [place] [address] Phone: Referral ID Status Reason Start Date Expiration Date Visits Requ ested Visits Authorized [id number] Closed 02/04/2014 08/03/2014 1 1 Encounter Details Date Type Department Care Team Description 02/02/2014 Surgery [facility] Migel Merchant , Kidney Transplant , PeriOp Services ureteral stent [address] [place] [address] [address] [address] [address] [place], [place] [address] (Wo rk) Surgery Details Date/Time Status Location [...] Physician Discharge Summary Patient ID: Diego Guthrie [id number] 63 year old 1950 Admit date: 02/02/2014 [...] on a heparin drip in preparation for ERFUGIO and cardioversion by cardiology, he subsequently began [...] Take 1 tablet by mouth daily. B apnzeyl-L-kgldl acid (NEPHROCAPS) 1 MG capsule Take 1 [...] of these appointments you will meetwith a political reporter and meet your life skills coordinator. Your nurse will also be in communication with your surgeon and political reporter as needed. The direct number to the [facility] is [phone]. In the [facility] [...] hospital. This will be located in [facility] transplant surgery clinic on the second floor.Your transplant surgeon is: Dr. Merchant. You have a ureteral stent in place which needs to be removed in 4-6 weeks. If a home care scheduler does not contact you for this, please contact your life skills coordinator. If you have modesta in place, they will be removed in 3 weeks after operation. Notify your coordinator if you have pain over your kidney, fever greater than 101.5F, or decreased urine output. Notify your coordinator immediately if you are ever unable to take your immunosuppressive medications for any reason. Mobile Application Architect [phone] Diet recommendations post-transplant: Heart healthy dietary habits rent and housing investigator (low saturated/trans fat, low sodium). High protein [...] >2. He can be seen by any fiber technologist in the outpatient setting for coordination. Continue metoprolol 25 po bid until he is r e-evaluated. We did attempt inpatient REFUGIO guided cardioversion, but the patient developed significant bleeding while on heparin. José Miguel Alvarez M.D. Vp Site Joseph Quintana MD - 02/08/2014 12:35 PM [...] Dr. Quintana. Sina Robison MD Nephrology Fellow [phone] Attestation: This patient has been seen and [...] Ramires RN - 02/07/2014 2:25 PM CDT Humidifier Attendant D: Diego Guthrie 63 year old male POD #5 s/p DDKT for ESRD 2/[address] Diaz note today. Per Dr Diaz, pt will most likely be ready for d/c to home tomorrow and will return to [facility] for 5 days at 0700. Pt [...] him. Pt does not know where the [facility] or transplant clinic is, I told him and he replied I will find it. Pt does not care which N agency will follow him--There are only 2 to choose from, so [phone]/ --I called and left a message with Estrella Fletcher and I fax'd his records tothem--pt will need start of care approx Thursday 02/15. Pt is new on warfarin and I called his PCP's office and they have INR nurses Tuesday-Tuesday their fax # is [phone] (when HHN visits are completed --pt will call main clinic # to schedule INR draws). 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 I verified his address and phone #(is his cell) on the facesheet. Pt has not met his OP home care physical therapist: Leandro Kahn, yet--I sent Leandro an in basket message today-with plan. A: possible d/c to home Tuesday P: see above-will follow and will call [facility] to confirm they can accept him. [...] Dr. Quintana. Sina Robison MD Nephrology Fellow [phone] Attestation: This patient has been seen and [...] assistance Medical Decision Making: Medium Subsequent visit 30454 (moderate level decision making) PATO/Fellow/Resident Provider: Adeline [...] Rodriguez MD - 02/06/2014 4:25 PM CDT [facility] Cardiology Progress Note I have seen [...] Dr. Quintana. Sina Robison MD Nephrology Fellow [phone] Attestation: This patient has been seen and [...] Dr. Quintana. Sina Robison MD Nephrology Fellow [phone] Attestation: This patient has been seen and [...] REPLACEMENT ONLY ??? insulin (regular) Stopped (02/05/14 9957) Shiva Kahn RN - 02/05/2014 4:47 PM CDT LENS BLANK GAUGER NOTE I met with the patient and his yesterday at [facility] PCU-6B (telemetry unit) to discuss transition from inpatient to outpatient care following kidney translantation. 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 He has slow graft function; however, his [...] the plan for daily visits to the [facility] for 5 days after discharge followed [...] meet with the patient again in the [facility] following discharge from [facility]. Joseph Rodriguez MD - 02/05/2014 11:16 AM CDT [facility] Cardiology Progress Note I have seen [...] plan for REFUGIO cardioversion tomorrow, NPO at [place] (orders placed) -- continue heparin and initiate [...] kidney on 02/02/2014. Pt lives alone in [facility] though reports that his girlfriend in in the process of moving in with him. Pt girlfriend, Tete, will be present when pt returns home but she works daytime caregiver. Pt was on dialysis for 2 1/2 years prior to transplant. Pt works independently but reports that he currently has no income coming in. Pt has primary insurancethrough Medicare and Secondary insurance through [employer]. Pt has no co-pays for his immunosuppressants and a high out of pocket cost for Valcyte, SW to look into grants for pt for Valcyte. I: Met with pt to introduce this publications writer and explain sw role and services available while inpatient in the hospital. Asked if pt had any questions or concerns and completed an assessment of psychosocialneeds post transplant. Provided education about expectations and requirements post discharge like fol low up in the [facility]. Pt is unsure yet if he [...] needs arise prior to discharge. Roopa Castro, BLAST SETTER, MAPPING ANALYST Indu Calixto MD - 02/05/2014 1:50 [...] Adds Type of Visit Initial PT Evaluation Sql Engineer Sql Engineer Present no Language Senegalese Living Environment (R) Lives With alone Living Arrangements ([facility]) Home Accessibility no concerns Number [...] up when pt is available. CECY Kearns, MAPPING ANALYST [phone] phone [phone] pager Joseph Quintana MD - 02/04/2014 11:51 [...] Dr. Quintana. Sina Robison MD Nephrology Fellow [phone] Attestation: This patient has been seen and [...] for this basename: PTHI, in the last 51531 hours IRON STUDIES No results found for this basename: IRON, FEB, IRONSAT, THEE, in the last 33755 hours Imaging: All imaging studies reviewed by [...] or equal to 12.0 mlU/mL. Adeline Emily [phone] Attestation: The patient has been seen and [...] donor kidney transplant, with stent on 02/02/14. STERILIZER OPERATOR donor. Graft function:uncertain, Cr slightly up. Slow [...] . Medical Decision Making: Medium Subsequent visit 47291 (moderate level decision making) PATO/Fellow/Resident Provider: Caitlin [...] note and orders. Migel Merchant MD, PhD medical transcription editor Abdominal Organ Transplantation Carmelita Rosario RN - 02/03/2014 9:38 AM CDT Patient removed from the UNOS waitlist after donor kidney transplant. UNOS ID is [id number]. Rafaela Cardona - 02/03/2014 9:17 AM CDT [...] followed general diet. Patient reports good appetite/intake FLAVORING OIL FILTERER, no nutrition issues/concnerns. CURRENT NUTRITION ORDERS - [...] DDKT ASSESSED NUTRITION NEEDS: Estimated Energy Needs: 0652-5958+ kcals (25-30+ Kcal/Kg) Justification: maintenance post-transplant Estimated [...] (6- 8 weeks). Rec follow heart-healthy diet prison. Implementation Nutrition education: Provided instruction on post-transplant diet with discussion regarding protein sources and high protein needs in acute post-tx phase. Reviewed recommendations to follow low fat/lowsodium diet prison and discussed heart healthy diet tips. Discussed [...] adjustment. Rafaela Cardona RD, LD Weekend Coverage [phone] Jose Aguirre MD - 02/03/2014 4:57 AM [...] Doing well postoperatively. Pain: Controlled by Dilaudid GAMING CAGE CASHIER Diet: NPO tonight Volume Status: Borderline low UOP, continue MIVF, 0.9 % NS 500 cc bolus given for low UOP, CVP not accurate, systolic in 100-110 Recheck hemoglobin and potassium normal. Rest of the plan per primary team. Will continue to follow. Jose Aguirre MD PGY-1.................02/03/2014 Surgery Cross Cover Pager:[phone] documented in this encounter H&P Notes Caitlin [...] 1 tablet by mouth daily. ??? 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 Kidney bx [...] note and orders. Migel Merchant MD, PhD medical transcription editor Abdominal Organ Transplantation documented in this encounter Consult Notes Joseph Rodriguez MD - 02/04/2014 11:03 AM CDTAssociated Order(s): CARDIOLOGY IP CONSULT [facility] CARDIOLOGY CONSULT SERVICE INITIAL CONSULT NOTE February [...] 1 tablet by mouth daily. ??? 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 2. There is no [...] assessment and plan. José Miguel Alvarez MD Vp Site Pager: [phone] February 04, 2014 Kaitlynn Leon MD - 02/03/2014 9:30 AM CDT Nephrology Initial Consult February 03, 2014 Diego Guthrie Date of : 1950 Date of Admission:02/02/2014 Primary care provider: Momo Forbes Requesting physician: Migel Merchant MD ASSESSMENT AND RECOMMENDATIONS: 1. DDKT - STERILIZER OPERATOR -59 yo women; slow graft function-no immediate need for dialysis , but may require tomorrow if UO does not apple picker. We will monitor Induction with Thymo/Cellcept [...] h/o type 2 Dm, who received DDKT (STERILIZER OPERATOR) on 02/02/2014 donor kidney had severe atherosclerotic [...] ??? Cataract iol, rt/lt both eyes MEDICATIONS: FLAVORING OIL FILTERER Meds Prior to Admission medications Medication Sig Last Dose Taking? Auth Provider Calcium Carbonate-Vitamin D (CALCIUM + D PO) Take by mouth daily. Reported, Patient lisinopril (PRINIVIL,ZESTRIL) 40 MG tablet Take 40 mg by mouth 2 times daily. Reported, Patient METOPROLOL SUCCINATE PO Take by mouth daily. Reported, Patient aspirin 81 MG tablet Take 1 tablet by mouth daily. Reported, Patient B lgfgurh-J-ahffx acid (NEPHROCAPS) 1 MG capsule Take 1 [...] Intravenous Central line Once ??? HYDROmorphone Intravenous GAMING CAGE CASHIER Infusion Meds ??? 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 Alvin Diego Cardiovascular Disease Fellow [phone] Patient seen and examined by me with [...] Cullen MD, PhD Jarad Cullen MD, PhD [phone] documented in this encounter Nursing Notes Gretta Mary RN - 02/02/2014 11:[address] Owens with Transplant Surgery notified of stat lab results. Magnesium replaced. Dr. Blank with Anesthesia reviewed chest x-ray. CVC not deep enough to give accurate CVP readings, however all lumens aspirate blood well. Patient is ok to transfer to unit 6B per [facility]. documented in this encounter Miscellaneous Notes Plan of Care - Amanda Hernandez RN - 02/08/2014 3:44 PM CDT Problem: IP GENERAL POC-ADULT,OB,BEHAVIORAL FVCPM Goal: Individualization/Patient-Specific Goal (Adult,OB,Behavioral The patient and/or their manufacturing sales representative will achieve their patient-specific goals [...] Card updated. Report called to Saima in [facility]. Left facility accompanied by s.o at 1600. Plan of Care - Amanda Hernandez RN - 02/08/2014 2:13 PM CDT Problem: IP GENERAL POC-ADULT,OB,BEHAVIORAL FVCPM Goal: Individualization/Patient-Specific Goal (Adult,OB,Behavioral The patient and/or their manufacturing sales representative will achieve their patient-specific goals [...] Individualization/Patient-Specific Goal (Adult,OB,Behavioral The patient and/or their manufacturing sales representative will achieve their patient-specific goals [...] Individualization/Patient-Specific Goal (Adult,OB,Behavioral The patient and/or their manufacturing sales representative will achieve their patient-specific goals [...] Diet recommendations post-transplant: Heart healthy dietary habits prison (low saturated/trans fat, low sodium). High protein diet x 8 weeks. Practice food safety precautions - no fish/seafood x 3 weeks. Inez Luevano MS, RD, LD Pager [phone] Pharmacy-Immunosuppression Monitoring - Em Vasquez RPH - [...] will continue to follow. Em Vasquez, Pharm.D., [facility] Pager [phone] Plan of Care - Annmarie Colby RN - 02/07/2014 5:11 AM CDT Problem: IP GENERAL POC-ADULT,OB,BEHAVIORAL FVCPM Goal: Individualization/Patient-Specific Goal (Adult,OB,Behavioral The patient and/or their manufacturing sales representative will achieve their patient-specific goals [...] Individualization/Patient-Specific Goal (Adult,OB,Behavioral The patient and/or their manufacturing sales representative will achieve their patient-specific goals [...] increased fluid intake, urine color is becoming door puller( tea color/bloody- >dark sy/tea color). Incisional pain [...] Physical Therapy Goals The patient and/or their manufacturing sales representative will achieve their patient-specific goals [...] Physical Therapy Goals The patient and/or their manufacturing sales representative will achieve their patient-specific goals [...] Individualization/Patient-Specific Goal (Adult,OB,Behavioral The patient and/or their manufacturing sales representative will achieve their patient-specific goals [...] Individualization/Patient-Specific Goal (Adult,OB,Behavioral The patient and/or their manufacturing sales representative will achieve their patient-specific goals [...] Physical Therapy Goals The patient and/or their manufacturing sales representative will achieve their patient-specific goals [...] at this time. Pharmacy - Cayetano Olivera, [facility] - 02/05/2014 12:26 PM CDT Visited 02/05/2014 in hospital room prior to discharge to review medications, review discharge process and review specialty pharmacy program. Med Review: Reviewed patient's medications and medical conditions. Patient would like to use [facility] to manage all medications. Medcard: [...] Specialty Pharmacy review: Discussed the benefits of [facility] and Diego has enrolled. Also gave him supplies (blood pressure cuff, thermometer, and pill box) Other concerns: No other concerns at this time. No further questions for this pharmacist. Inez Cox, Student Pharmacist Fuse Maker [facility] [address] [place] [id number] Cayetano Olivera, Pharmacist [facility] [phone] Pharmacy-Anticoagulation Service - Teresa Wright [facility] - 02/05/2014 11:29 AM CDT Clinical [...] Individualization/Patient-Specific Goal (Adult,OB,Behavioral The patient and/or their manufacturing sales representative will achieve their patient-specific goals [...] melonie hard time making full sentences. When publications writer came on shift at 8pm patient [...] Individualization/Patient-Specific Goal (Adult,OB,Behavioral The patient and/or their manufacturing sales representative will achieve their patient-specific goals [...] Physical Therapy Goals The patient and/or their manufacturing sales representative will achieve their patient-specific goals [...] by friend. Pt transferred to chair, VSS, ekg monitor on, oriented to room. Pharmacy-Admission Medication History - Adriana Teresa Whitney, [facility] - 02/04/2014 11:54 AM CDT Admission medication history interview status for the 02/02/2014 admission is complete. See [facility] admission navigator for allergy information, prior to admission medications and immunization status. Medication history interview sources (including written lists, pill bottles, clinic record):Patient Medication history source reliability:Good Primary pharmacy:[facility] phone number: [phone] Changes made to FLAVORING OIL FILTERER medication list (reason) Added: Vitamin D 1,000 [...] at Unknown time Yes Reported, Patient B ikgvgnb-R-hhmhh acid (NEPHROCAPS) 1 MG capsule Take 1 [...] Individualization/Patient-Specific Goal (Adult,OB,Behavioral The patient and/or their manufacturing sales representative will achieve their patient-specific goals [...] 45 minutes and remains in A-fib via quality assurance monitor. Repeat EKG around 1000 showed continued [...] Physical Therapy Goals The patient and/or their manufacturing sales representative will achieve their patient-specific goals related to the plan of care. The patient-specific goals include: PT 7A: HOLD for AM per RN - pt with a-fib this morning. Plan of Care - Alisson Diane RN - 02/04/2014 6:45 AM CDT Problem: IP GENERAL POC-ADULT,OB,BEHAVIORAL FVCPM Goal: Individualization/Patient-Specific Goal (Adult,OB,Behavioral The patient and/or their manufacturing sales representative will achieve their patient-specific goals [...] Individualization/Patient-Specific Goal (Adult,OB,Behavioral The patient and/or their manufacturing sales representative will achieve their patient-specific goals [...] from red to yellow. Pharmacy-Transplant Note - Davian Schuster [facility] - 02/03/2014 4:28 PM CDT Adult [...] Individualization/Patient-Specific Goal (Adult,OB,Behavioral The patient and/or their manufacturing sales representative will achieve their patient-specific goals related to the plan of care. The patient-specific goals include: 1. Pt will remain hemodynamically stable 2. Pt will have adequate urine output 3. Pt will be free of falls. RD Patient will verbalize understanding of 3 important aspects of post-transplant diet guidelines. PO intake >50% meals TID once diet adv. Report taken from [facility] on 6B; patient transferred to from 6B via wheelchair around 1500. Patientsettled into room, oriented to floor/room and call light. VS taken. Orders released. Continue ordersas written and notify MD with any concerns. Plan of Care - Sofie Christianson RN - 02/03/2014 2:59 PM CDT Problem: IP GENERAL POC-ADULT,OB,BEHAVIORAL FVCPM Goal: Plan of Care Review (Adult,OB,Behavioral) The patient and/or their manufacturing sales representative will communicate an understanding of [...] algorithm 2, 1 unit now. Pt still [id number] NC to maintain sats above 90 % [...] 80mg as ordered. Plan of Care - aTsia Andrade RN - 02/03/2014 7:32 AM CDT Problem: IP GENERAL POC-ADULT,OB,BEHAVIORAL FVCPM Goal: Individualization/Patient-Specific Goal (Adult,OB,Behavioral The patient and/or their manufacturing sales representative will achieve their patient-specific goals [...] Intermittent sharp R lower abd pain. Dilaudid GAMING CAGE CASHIER encouraged, increased to 0.2/10/1.2. R lower abd [...] 0200 made 20cc/hr, at 0300 made 30cc/hr. [place]/red tinged urine. MIVF @ 125/hr. VSS. HR 70s, BPs 100s-120s/60s. No new orders at this time. Will continue to monitor. Plan of Care - Tasia Andrade, BOGDAN - 02/03/2014 12:00 AM CDT Pt arrived to 6B from PACU, s/p DDKT. A&O x3-4. VSS. [place]/red urine output. Small amt drainage on abd [...] received [facility] offer for a Donor STERILIZER OPERATOR (expanded criteria donor) kidney transplant. After discussing [...] The UNOS number of the donor is [id number]. The crossmatch was done prospectively; and the [...] reconstruction. FACULTY SURGEON: Migel Merchant M.D., Ph.D. FELLOW/DRIVER SERVICE TECHNICIAN SURGEON: Caitlin Owens MD fellow ANESTHESIA: None VERIFICATION: Prior to incision, I verified the donor ABO and recipient ABO. After the donor organ arrived to the operating room and prior to anastamosis, I visually verified that the donor identification, blood type, and other vital data were compatible with the recipient. FINDINGS: Donor type: STERILIZER OPERATOR (expanded criteria donor) Organ: kidney Graft Injury: [...] Individualization/Patient-Specific Goal (Adult,OB,Behavioral The patient and/or their manufacturing sales representative will achieve their patient-specific goals [...] Individualization/Patient-Specific Goal (Adult,OB,Behavioral The patient and/or their manufacturing sales representative will achieve their patient-specific goals [...] Signature Tacrolimus Not Provided [facility] Last Dose [facility] Tacrolimus 10.0 5.0 - [facility] Level 15.0 ug/L [facility] Comment: Tacrolimus Reference Range Kidney [...] Of [place]/ZIP Code Phon e Number [address] LABS (ABNORMAL) INR (02/08/2014 6:42 AM CDT) P athologist Signature INR 1.28 (H) 0.86 - 1.14 [facility] Specimen Anatomical Collection Method Collection Time Receive d Time (Source) Location / / Volume Laterality Blood specimen 02/08/2014 6:42 AM 014 6:43 (specimen) CDT AM CDT Omaira Chavez PA-C LAB - BLOOD ORDERABLES Performing Organization Address City/State/ZIP Code Phon e Number [address] LABS (ABNORMAL) Basic metabolic panel (02/08/2014 6:42 AM CDT) Patholo gist Method Time Signature Sodium 144 133 - 144 [facility] mmol/L [facility] Potassium 3.9 3.4 - 5.3 [facility] mmol/L [facility] Chloride 110 (H) 94 - 109 [facility] mmol/L [facility] Carbon Dioxide 25 20 - 32 [facility] mmol/L [facility] Anion Gap 8 6 - 17 [facility] mmol/L [facility] Glucose 144 (H) 60 - 99 [facility] mg/dL [facility] Urea Nitrogen 66 (H) 7 - 30 [facility] mg/dL [facility] Creatinine 2.38 (H) 0.66 - [facility] 1.25 mg/dL [facility] GFR Estimate 28 (L) >60 [facility] mL/min/1.7 [place] m2 [place] [facility] GFR Estimate If 34 (L) >60 [facility] Black mL/min/1.7 [place] m2 [facility] LABS Calcium 9.4 8.5 - 10.4 [facility] mg/dL [facility] Specimen Anatomical Collection Method Collection Time Receive d Time (Source) Location / / Volume Laterality Blood specimen 02/08/2014 6:42 AM 014 6:43 (specimen) CDT AM CDT Omaira Chavez PA-C LAB - BLOOD ORDERABLES Performing Organization Address City/State/ZIP Code Phon e Number [facility] [address] LABS Phosphorus (02/08/2014 6:42 AM CDT) P athologist Signature Phosphorus 2.5 2.5 - 4.5 [facility] mg/dL [place] LABS Specimen Anatomical Collection Method Collection Time Receive d Time (Source) Location / / Volume Laterality Blood specimen 02/08/2014 6:42 AM 014 6:43 (specimen) CDT AM CDT Omaira Chavez PA-C LAB - BLOOD ORDERABLES Performing Organization Address City/State/ZIP Code Phon e Number [facility] [address] LABS Magnesium (02/08/2014 6:42 AM CDT) P athologist Signature Magnesium 2.2 1.6 - 2.3 [facility] mg/dL [place] LABS Specimen Anatomical Collection Method Collection Time Receive d Time (Source) Location / / Volume Laterality Blood specimen 02/08/2014 6:42 AM 014 6:43 (specimen) CDT AM CDT Omaira Chavez PA-C LAB - BLOOD ORDERABLES Performing Organization Address City/State/ZIP Code Phon e Number [facility] [address] LABS (ABNORMAL) CBC with platelets differential (02/08/2014 6:42 AM CDT) Patholo gist Method Time Signature WBC 4.8 4.0 - [facility] 11.0 [place] 10e9/L [place] LABS RBC Count 2.56 (L) 4.4 - 5.9 [facility] 10e12/L [facility] LABS Hemoglobin 7.8 (L) 13.3 - [facility] 17.7 g/dL [facility] LABS Hematocrit 23.5 (L) 40.0 - [facility] 53.0 % [facility] LABS MCV 92 78 - 100 [facility] fl [facility] LABS MCH 30.5 26.5 - [facility] 33.0 pg [facility] LABS MCHC 33.2 31.5 - [facility] 36.5 g/dL [facility] LABS RDW 14.5 10.0 - [facility] 15.0 % [facility] LABS Platelet Count 70 (L) 150 - 450 [facility] 10e9/L [facility] LABS Diff Method Automated [facility] Method [facility] LABS % Neutrophils 86.3 % [facility] LABS % Lymphocytes 3.1 % [facility] LABS % Monocytes 9.4 % [facility] LABS % Eosinophils 1.0 % [facility] LAB[facility] % Basophils 0.0 % [facility] LAB[facility] % Immature 0.2 % [facility] Granulocytes [facility] LABS Absolute 4.1 1.6 - 8.3 [facility] Neutrophil 10e9/L [facility] LABS Absolute 0.2 (L) 0.8 - 5.3 [facility] Lymphocytes 10e9/L [facility] LABS Absolute 0.5 0.0 - 1.3 [facility] Monocytes 10e9/L [facility] LABS Absolute 0.1 0.0 - 0.7 [facility] Eosinophils 10e9/L [facility] LABS Absolute 0.0 0.0 - 0.2 [facility] Basophils 10e9/L [facility] LABS Abs Immature 0.0 0 - 0.4 [facility] Granulocytes 10e9/L [facility] LABS Specimen Anatomical Collection Method Collection Time Receive d Time (Source) Location / / Volume Laterality Blood specimen 02/08/2014 6:42 AM 014 6:43 (specimen) CDT AM CDT Omaira Chavez PA-C LAB - BLOOD ORDERABLES Performing Organization Address City/State/ZIP Code Phon e Number [address] [address] [facility] LABS (ABNORMAL) Glucose by meter (02/07/2014 [...] Address City/[facility] Code Phon e Number FV [...] LAB - BEAJ POCT Performing Organization Address [facility] Phon e Number FV POINT OF [...] Address City/[facility] Code Phon e Number FV [...] LAB - BEAJ POCT Performing Organization Address City/[facility] Phon e Number FV POINT OF [...] Signature INR 1.25 (H) 0.86 - 1.14 [facility] LABS Specimen Anatomical Collection Method Collection Time Receive d Time (Source) Location / / Volume Laterality Blood specimen 02/07/2014 4:23 AM 014 4:24 (specimen) CDT AM CDT Omaira Chavez PA-C LAB - BLOOD ORDERABLES Performing Organization Address City/State/ZIP Code Phon e Number [phone] [place] [address] LABS (ABNORMAL) Basic metabolic panel (02/07/2014 4:23 AM CDT) [facility] Method Time Signature Sodium 143 133 - 144 [facility] mmol/L [facility] LABS Potassium 4.1 3.4 - 5.3 [facility] mmol/L [facility] LABS Chloride 109 94 - 109 [facility] mmol/L [facility] LABS Carbon Dioxide 24 20 - 32 [facility] mmol/L [facility] LABS Anion Gap 10 6 - 17 [facility] mmol/L [facility] LABS Glucose 185 (H) 60 - 99 [facility] mg/dL [facility] LABS Urea Nitrogen 77 (H) 7 - 30 [facility] mg/dL [facility] LABS Creatinine 3.02 (H) 0.66 - [facility] 1.25 mg/dL [facility] [place] LABS GFR Estimate 21 (L) >60 [facility] mL/min/1.7 [place] m2 CAMPUS LABS GFR Estimate If 26 (L) >60 [facility] Black mL/min/1.7 [place] m2 CAMPUS LABS Calcium 9.3 8.5 - 10.4 [facility] mg/dL [facility] LABS Specimen Anatomical Collection Method Collection Time Receive d Time (Source) Location / / Volume Laterality Blood specimen 02/07/2014 4:23 AM 014 4:24 (specimen) CDT AM CDT Omaira Chavez PA-C LAB - BLOOD ORDERABLES Performing Organization Address City/[facility]/ZIP Code Phon e Number [facility] [address] LABS Phosphorus (02/07/2014 4:23 AM CDT) P athologist Signature Phosphorus 3.5 2.5 - 4.5 [facility] mg/dL [place] LABS Specimen Anatomical Collection Method Collection Time Receive d Time (Source) Location / / Volume Laterality Blood specimen 02/07/2014 4:23 AM 014 4:24 (specimen) CDT AM CDT Omaira Chavez PA-C LAB - BLOOD ORDERABLES Performing Organization Address City/State/ZIP Code Phon e Number [facility] [address] LABS Magnesium (02/07/2014 4:23 AM CDT) P athologist Signature Magnesium 2.1 1.6 - 2.3 [facility] mg/dL [place] LABS Specimen Anatomical Collection Method Collection Time Receive d Time (Source) Location / / Volume Laterality Blood specimen 02/07/2014 4:23 AM 014 4:24 (specimen) CDT AM CDT Omaira Chavez PA-C LAB - BLOOD ORDERABLES Performing Organization Address City/[facility]/ZIP Code Phon e Number [facility] [address] LABS (ABNORMAL) CBC with platelets differential (02/07/2014 4:23 AM CDT) Patholo gist Method Time Signature WBC 2.7 (L) 4.0 - [facility] 11.0 [place] 10e9/L [place] LABS RBC Count 2.80 (L) 4.4 - 5.9 [facility] 10e12/L [facility] LABS Hemoglobin 8.5 (L) 13.3 - [facility] 17.7 g/dL [facility] LABS Hematocrit 25.8 (L) 40.0 - [facility] 53.0 % [facility] LABS MCV 92 78 - 100 [facility] fl [facility] LABS MCH 30.4 26.5 - [facility] 33.0 pg [facility] LABS MCHC 32.9 31.5 - [facility] 36.5 g/dL [facility] LABS RDW 14.5 10.0 - [facility] 15.0 % [facility] LABS Platelet Count 77 (L) 150 - 450 [facility] 10e9/L [facility] LABS Diff Method Automated [facility] Method [facility] LABS % Neutrophils 87.5 % [facility] LABS % Lymphocytes 3.8 % [facility] LABS % Monocytes 8.7 % [facility] LABS % Eosinophils 0.0 % [facility] LABS % Basophils 0.0 % [facility] LABS % Immature 0.0 % [facility] Granulocytes [facility] LABS Absolute 2.3 1.6 - 8.3 [facility] Neutrophil 10e9/L [facility] LABS Absolute 0.1 (L) 0.8 - 5.3 [facility] Lymphocytes 10e9/L [facility] LABS Absolute 0.2 0.0 - 1.3 [facility] Monocytes 10e9/L [facility] LABS Absolute 0.0 0.0 - 0.7 [facility] Eosinophils 10e9/L [facility] LABS Absolute 0.0 0.0 - 0.2 [facility] Basophils 10e9/L [facility] LABS Abs Immature 0.0 0 - 0.4 [facility] Granulocytes 10e9/L [facility] LABS Specimen Anatomical Collection Method Collection Time Receive d Time (Source) Location / / Volume Laterality Blood specimen 02/07/2014 4:23 AM 014 4:24 (specimen) CDT AM CDT Omaira Chavez PA-C LAB - BLOOD ORDERABLES Performing Organization Address City/State/ZIP Code Phon e Number [facility] [address] [place] [address] [facility] LABS (ABNORMAL) Hemoglobin A1c (02/07/2014 4:23 AM CDT) Analysis Performed At Patho logist Time Signature Hemoglobin A1C 6.1 (H) 4.3 - 6.0 [facility] LABS Specimen Anatomical Collection Method Collection Time Receive d Time (Source) Location / / Volume Laterality Blood specimen 02/07/2014 4:23 AM 014 4:24 (specimen) CDT AM CDT Omaira Chavez PA-C LAB - BLOOD ORDERABLES Performing Organization Address City/[facility]/ZIP Code Phon e Number [facility] [address] [place] [address] [facility] LABS (ABNORMAL) Glucose by meter (02/06/2014 10:06 PM CDT) P athologist Signature Glucose 247 (H) 60 - 99 POINT OF CARE mg/dL TEST, GLUCOSE Specimen Anatomical Collection Method Collection Time Receive d Time (Source) Location / / Volume Laterality 02/06/2014 10:06 02/06/2014 PM CDT 10:10 PM CDT Migel LARES - ROBERT POCT Performing Organization Address City/[facility]/ZIP Code Phon e Number FV POINT OF [...] LARES - ROBERT POCT Performing Organization Address City/[facility]/ZIP Code Phon e Number FV POINT OF CARE TEST, GLUCOSE POINT OF CARE TEST, GLUCOSE (ABNORMAL) Glucose by meter (02/06/2014 5:30 PM CDT) P athologist Signature Glucose 200 (H) 60 - 99 POINT OF CARE mg/dL TEST, GLUCOSE Comment: /BGODAN Notified Specimen Anatomical Collection Method Collection Time Receive d Time (Source) Location / / Volume Laterality 02/06/2014 5:30 PM 4 5:36 CDT PM CDT Migel LARES - ROBERT POCT Performing Organization Address City/State/ZIP Code Phon e Number FV POINT OF CARE TEST, GLUCOSE POINT OF CARE TEST, GLUCOSE (ABNORMAL) Hemoglobin (02/06/2014 4:59 PM CDT) P athologist Signature Hemoglobin 8.8 (L) 13.3 - 17.7 [facility] g/dL [place] LABS Specimen Anatomical Collection Method Collection Time Receive d Time (Source) Location / / Volume Laterality Blood specimen 02/06/2014 4:59 PM 014 5:12 (specimen) CDT PM CDT Omaira Chavez PA-C LAB - BLOOD ORDERABLES Performing Organization Address City/[facility]/ZIP Code Phon e Number [address] LABS (ABNORMAL) Glucose by meter (02/06/2014 12:01 PM CDT) P athologist Signature Glucose 181 (H) 60 - 99 POINT OF CARE mg/dL TEST, GLUCOSE Specimen Anatomical Collection Method Collection Time Receive d Time (Source) Location / / Volume Laterality 02/06/2014 12:01 02/06/2014 PM CDT 12:05 PM CDT Migel LARES - ROBERT POCT Performing Organization Address City/[facility]/ZIP Code Phon e Number FV POINT OF CARE TEST, GLUCOSE POINT OF CARE TEST, GLUCOSE (ABNORMAL) Partial thromboplastin time (02/06/2014 5:57 AM CDT) athologist Signature PTT 154 (HH) 22 - 37 sec [facility] LABS Comment: Critical Value called to and read back Whitney Poon RN AT 0642. PW Specimen Anatomical Collection Method Collection Time Receive d Time (Source) Location / / Volume Laterality 02/06/2014 5:57 AM 4 6:03 CDT AM CDT Adeline Diaz MD LAB - BLOOD ORDERABLES Performing Organization Address City/[facility]/ZIP Code Phon e Number [facility] [address] [place], [place] [phone] [place] [address] LABS Heparin Xa (10a) Level (02/06/2014 5:57 AM CDT) P athologist Signature Heparin 10A 0.92 IU/mL [facility] LABS Comment: Therapeutic Range: ?? UFH: [...] [place]/ZIP Code Phon e Number [facility] [address] LABS (ABNORMAL) INR (02/06/2014 5:57 AM CDT) P athologist Signature INR 1.32 (H) 0.86 - 1.14 [facility] LABS Specimen Anatomical Collection Method Collection Time Receive d Time (Source) Location / / Volume Laterality Blood specimen 02/06/2014 5:57 AM 014 6:03 (specimen) CDT AM CDT Omaira Chavez PA-C LAB - BLOOD ORDERABLES Performing Organization Address City/[facility]/ZIP Code Phon e Number [address] LABS (ABNORMAL) Basic metabolic panel (02/06/2014 5:57 AM CDT) Patholo gist Method Time Signature Sodium 142 133 - 144 [facility] mmol/L [facility] LABS Potassium 4.7 3.4 - 5.3 [facility] mmol/L [facility] LABS Chloride 106 94 - 109 [facility] mmol/L [facility] LABS Carbon Dioxide 28 20 - 32 [facility] mmol/L [facility] LABS Anion Gap 8 6 - 17 [facility] mmol/L [facility] LABS Glucose 196 (H) 60 - 99 [facility] mg/dL [facility] LABS Urea Nitrogen 71 (H) 7 - 30 [facility] mg/dL [facility] LABS Creatinine 3.96 (H) 0.66 - [facility] 1.25 mg/dL [facility] LABS GFR Estimate 15 (L) >60 [facility] mL/min/1.7 [place] m2 [facility]AMPUS LABS GFR Estimate If 19 (L) >60 [facility] Black mL/min/1.7 [place] [id number] CAMPUS LABS Calcium 9.4 8.5 - 10.4 [facility] mg/dL [facility] LABS Specimen Anatomical Collection Method Collection Time Receive d Time (Source) Location / / Volume Laterality Blood specimen 02/06/2014 5:57 AM 014 6:03 (specimen) CDT AM CDT Omaira Chavez PA-C LAB - BLOOD ORDERABLES Performing Organization Address [facility]/ZIP Code Phon e Number [address] LABS Phosphorus (02/06/2014 5:57 AM CDT) P athologist Signature Phosphorus 4.5 2.5 - 4.5 [facility] mg/dL [place] LABS Specimen Anatomical Collection Method Collection Time Receive d Time (Source) Location / / Volume Laterality Blood specimen 02/06/2014 5:57 AM 014 6:03 (specimen) CDT AM CDT Omaira Chavez PA-C LAB - BLOOD ORDERABLES Performing Organization Address City/[facility]/ZIP Code Phon e Number [facility] [address] LABS Magnesium (02/06/2014 5:57 AM CDT) P athologist Signature Magnesium 1.9 1.6 - 2.3 [facility] [place] mg/dL [place] LABS Specimen Anatomical Collection Method Collection Time Receive d Time (Source) Location / / Volume Laterality Blood specimen 02/06/2014 5:57 AM 014 6:03 (specimen) CDT AM CDT Omaira Yanely Chavez PA-C LAB - BLOOD ORDERABLES Performing Organization Address City/State/ZIP Code Phon e Number [facility] [address] [place] [address] [place] [facility] LABS (ABNORMAL) CBC with platelets differential (02/06/2014 5:57 AM CDT) [facility] gist Method Time Signature WBC 5.1 4.0 - [facility] 11.0 [facility] 10e9/L [facility] LABS RBC Count 3.13 (L) 4.4 - 5.9 [facility] 10e12/L [facility] LABS Hemoglobin 9.6 (L) 13.3 - [facility] 17.7 g/dL [facility] LABS Hematocrit 29.0 (L) 40.0 - [facility] 53.0 % [facility] LABS MCV 93 78 - 100 [facility] fl [facility] LABS MCH 30.7 26.5 - [facility] 33.0 pg [facility] LABS MCHC 33.1 31.5 - [facility] 36.5 g/dL [facility] LABS RDW 14.5 10.0 - [facility] 15.0 % [facility] LABS Platelet Count 85 (L) 150 - 450 [facility] 10e9/L [facility] LABS Diff Method Automated [facility] Method [facility] LABS % Neutrophils 86.0 % [facility] LABS % Lymphocytes 5.1 % [facility] LABS % Monocytes 8.7 % [facility] LABS % Eosinophils 0.0 % [facility] LABS % Basophils 0.0 % [facility] LABS % Immature 0.2 % [facility] Granulocytes [facility] LABS Absolute 4.4 1.6 - 8.3 [facility] Neutrophil 10e9/L [facility] LABS Absolute 0.3 (L) 0.8 - 5.3 [facility] Lymphocytes 10e9/L [facility] LABS Absolute 0.4 0.0 - 1.3 [facility] Monocytes 10e9/L [facility] LABS Absolute 0.0 0.0 - 0.7 [facility] Eosinophils 10e9/L [facility] LABS Absolute 0.0 0.0 - 0.2 [facility] Basophils 10e9/L [facility] LABS Abs Immature 0.0 0 - 0.4 [facility] Granulocytes 10e9/L [facility] LABS Specimen Anatomical Collection Method Collection Time Receive d Time (Source) Location / / Volume Laterality Blood specimen 02/06/2014 5:57 AM 014 6:03 (specimen) CDT AM CDT Omaira Chavez PA-C LAB - BLOOD ORDERABLES Performing Organization Address [facility]/ZIP Code Phon e Number [facility] [address] [place] [address] [facility] LABS (ABNORMAL) Lipid panel reflex to direct LDL (02/06/2014 5:57 AM CDT) P athologist Signature Cholesterol 126 <200 mg/dL [facility] LABS Comment: LDL Cholesterol is the primary guide to therapy. The NCEP recommends further evaluation of: patients with cholesterol greater than 200 mg/dL if additional risk facto rs are present, cholesterol greater than 240 mg/dL, triglycerides greater than 1 50 mg/dL, or HDL less than 40 mg/dL. Triglycerides 100 0 - 150 mg/dL [facility] LABS HDL Cholesterol 35 (L) >40 mg/dL [facility] LABS LDL Cholesterol Calculated 71 0 - 129 mg/dL [facility] LABS Comment: LDL Cholesterol is the primary guide to therapy: LDL-cholesterol goal in high risk patients is <100 mg/dL and in very high risk patients is <70 mg/dL. VLDL-Cholesterol 20 0 - 30 mg/dL [facility] LAB[facility] Cholesterol/HDL Ratio 3.6 0.0 - 5.0 [facility] LABS Specimen Anatomical Collection Method Collection Time Receive d Time (Source) Location / / Volume Laterality Blood specimen 02/06/2014 5:57 AM 014 6:03 (specimen) CDT AM CDT Omaira Chavez PA-C LAB - BLOOD ORDERABLES Performing Organization Address City/[facility]/ZIP Code Phon e Number [facility] [address] [place] [address] [facility] LABS Tacrolimus level (02/06/2014 5:57 AM CDT) Patholo gist Method Time Signature Tacrolimus S Negative [facility] Last Dose [facility] LABS Tacrolimus 12.7 5.0 - [facility] Level 15.0 ug/L [facility] LABS Comment: Tacrolimus Reference Range Kidney [...] ORDERABLES Performing Organization Address City/State/[facility] Code Phon e Number [facility] [address] [place], [place] [id number] [place] [address] LABS (ABNORMAL) Glucose by meter (02/06/2014 3:21 [...] athologist Signature Hemoglobin 10.2 (L) 13.3 - [facility] 17.7 g/dL [place] LABS Specimen Anatomical Collection Method Collection Time Receive d Time (Source) Location / / Volume Laterality Blood specimen 02/06/2014 1:02 AM 014 1:11 (specimen) CDT AM CDT Deysi Alicea MD LAB - BLOOD ORDERABLES Performing Organization Address City/State/ZIP Code Phon e Number [facility] [address] [place], [place] [phone] [place] [address] LABS (ABNORMAL) Glucose by meter (02/05/2014 10:23 [...] [place]/ZIP Code Phon e Number FV POINT OF CARE TEST, GLUCOSE POINT OF CARE TEST, GLUCOSE Heparin 10a Level (02/05/2014 7:32 PM CDT) athologist Signature Heparin 10A 0.64 IU/mL [facility] LABS Comment: Therapeutic Range: ?? UFH: [...] Code Phon e Number [facility] [address] [place] [address] [facility] LABS (ABNORMAL) Glucose by meter (02/05/2014 [...] [place]/ZIP Code Phon e Number FV POINT OF [...] [place]/ZIP Code Phon e Number FV POINT OF [...] Signature INR 1.24 (H) 0.86 - 1.14 [facility] LABS Specimen Anatomical Collection Method Collection Time Receive d Time (Source) Location / / Volume Laterality Blood specimen 02/05/2014 12:04 4 (specimen) PM CDT 12:10 PM CDT Teresa Wright [facility] LAB - BLOOD ORDERABLES Performing Organization Address City/State/ZIP Code Phon e Number [phone] [place] [address] LABS (ABNORMAL) CBC with platelets (02/05/2014 12:04 PM CDT) [facility] gist Method Time Signature WBC 7.4 4.0 - 11.0 [facility] 10e9/L [facility] LABS RBC Count 3.31 (L) 4.4 - 5.9 [facility] 10e12/L [facility] LABS Hemoglobin 10.3 (L) 13.3 - [facility] 17.7 g/dL [facility] LABS Hematocrit 31.0 (L) 40.0 - [facility] 53.0 % [facility] LABS MCV 94 78 - 100 [facility] fl [facility] LAB[facility] MCH 31.1 26.5 - [facility] 33.0 pg [facility] MCHC 33.2 31.5 - [facility] 36.5 g/dL [facility] RDW 14.7 10.0 - [facility] 15.0 % [facility] LABS Platelet Count 91 (L) 150 - 450 [facility] 10e9/L [facility] LAB[facility] Specimen Anatomical Collection Method Collection Time Receive d Time (Source) Location / / Volume Laterality Blood specimen 02/05/2014 12:04 4 (specimen) PM CDT 12:10 PM CDT Omaira Chavez PA-C LAB - BLOOD ORDERABLES Performing Organization Address City/State/ZIP Code Phon e Number [facility] [address] [place] [address] [facility] LABS (ABNORMAL) Glucose by meter (02/05/2014 11:25 AM CDT) P athologist Signature Glucose 190 (H) 60 - 99 POINT OF CARE mg/dL TEST, GLUCOSE Specimen Anatomical Collection Method Collection Time Receive d Time (Source) Location / / Volume Laterality 02/05/2014 11:25 02/05/2014 AM CDT 11:30 AM CDT Migel LARES - ROBERT POCT Performing Organization Address City/[facility]/ZIP Code Phon e Number FV POINT OF [...] LARES - BEAKER POCT Performing Organization Address City/[facility]/ZIP Code Phon e Number FV POINT OF [...] Basic metabolic panel (02/05/2014 7:02 AM CDT) [facility] gist Method Time Signature Sodium 143 133 - 144 [facility] mmol/L [facility] Potassium 4.3 3.4 - 5.3 [facility] mmol/L [facility] Chloride 107 94 - 109 [facility] mmol/L [facility] Carbon Dioxide 25 20 - 32 [facility] mmol/L [facility] Anion Gap 10 6 - 17 [facility] mmol/L [facility] Glucose 123 (H) 60 - 99 [facility] mg/dL [facility] Urea Nitrogen 66 (H) 7 - 30 [facility] mg/dL [facility] Creatinine 4.77 (H) 0.66 - [facility] 1.25 mg/dL [facility] [place] LAB[facility] GFR Estimate 12 (L) >60 [facility] mL/min/1.7 [facility] m2 [facility]AMP[facility] LABS GFR Estimate If 15 (L) >60 [facility] Black mL/min/1.7 [place] m2 [facility]AMP[facility] LABS Calcium 9.4 8.5 - 10.4 [facility] mg/dL [facility] Specimen Anatomical Collection Method Collection Time Receive d Time (Source) Location / / Volume Laterality Blood specimen 02/05/2014 7:02 AM 014 7:05 (specimen) CDT AM CDT Omaira Chavez PA-C LAB - BLOOD ORDERABLES Performing Organization Address City/State/ZIP Code Phon e Number [address] LABS (ABNORMAL) Phosphorus (02/05/2014 7:02 AM [...] Code Phon e Number [facility] [address] LABS Magnesium (02/05/2014 7:02 AM CDT) P athologist Signature Magnesium 2.0 1.6 - 2.3 [facility] mg/dL [place] LABS Specimen Anatomical Collection Method Collection Time Receive d Time (Source) Location / / Volume Laterality Blood specimen 02/05/2014 7:02 AM 014 7:05 (specimen) CDT AM CDT Omaira Chavez PA-C LAB - BLOOD ORDERABLES Performing Organization Address City/[facility]/ZIP Code Phon e Number [facility] [address] [place], [place] [phone] [place] [address] LABS (ABNORMAL) CBC with platelets differential (02/05/2014 7:02 AM CDT) Patholo gist Method Time Signature WBC 8.9 4.0 - [facility] 11.0 [facility] 10e9/L [place] LABS RBC Count 3.20 (L) 4.4 - 5.9 [facility] 10e12/L [facility]S Hemoglobin 9.7 (L) 13.3 - [facility] 17.7 g/dL [facility] LABS Hematocrit 30.0 (L) 40.0 - [facility] 53.0 % [facility]S MCV 94 78 - 100 [facility] fl [facility] MCH 30.3 26.5 - [facility] 33.0 pg [facility] MCHC 32.3 31.5 - [facility] 36.5 g/dL [facility] RDW 14.6 10.0 - [facility] 15.0 % [facility] Platelet Count 96 (L) 150 - 450 [facility] 10e9/L [facility] Diff Method Automated [facility] Method [facility] % Neutrophils 90.2 % [facility] LABS % Lymphocytes 4.4 % [facility] % Monocytes 5.2 % [facility] % Eosinophils 0.0 % [facility] % Basophils 0.0 % [facility] LABS % Immature 0.2 % [facility] Granulocytes [facility] Absolute 8.1 1.6 - 8.3 [facility] Neutrophil 10e9/L [facility] Absolute 0.4 (L) 0.8 - 5.3 [facility] Lymphocytes 10e9/L [place] [facility] LAB[facility] Absolute 0.5 0.0 - 1.3 [facility] Monocytes 10e9/L [facility] Absolute 0.0 0.0 - 0.7 [facility] Eosinophils 10e9/L [place] [facility] LAB[facility] Absolute 0.0 0.0 - 0.2 [facility] Basophils 10e9/L [facility] Abs Immature 0.0 0 - 0.4 [facility] Granulocytes 10e9/L [facility] [place] [facility] Specimen Anatomical Collection Method Collection Time Receive d Time (Source) Location / / Volume Laterality Blood specimen 02/05/2014 7:02 AM 014 7:05 (specimen) CDT AM CDT Omaira Chavez PA-C LAB - BLOOD ORDERABLES Performing Organization Address City/[facility] Code Phon e Number [address] LABS (ABNORMAL) Parathormone intact (02/05/2014 7:02 AM CDT) Patholo gist Method Time Signature Parathyroid 362 (H) 12 - 72 [facility] Hormone Intact pg/mL [facility] Specimen Anatomical Collection Method Collection Time Receive d Time (Source) Location / / Volume Laterality Blood specimen 02/05/2014 7:02 AM 014 7:05 (specimen) CDT AM CDT Sina Robison MD LAB - BLOOD ORDERABLES Performing Organization Address City/State/ZIP Code Phon e Number [address] LABS (ABNORMAL) Ferritin (02/05/2014 7:02 AM CDT) P athologist Signature Ferritin 932 (H) 20 - 300 [facility] ng/mL [facility] LABS Specimen Anatomical Collection Method Collection Time Receive d Time (Source) Location / / Volume Laterality Blood specimen 02/05/2014 7:02 AM 014 7:05 (specimen) CDT AM CDT Sina Robison MD LAB - BLOOD ORDERABLES Performing Organization Address City/State/ZIP Code Phon e Number [address] [place] [address] [facility] LABS (ABNORMAL) Iron and iron binding capacity (02/05/2014 7:02 AM CDT) Analysis Performed At Patho logist Time Signature Iron 119 35 - 180 [facility] ug/dL [facility] Iron Binding 207 (L) 240 - 430 [facility] Cap ug/dL [facility] Iron Saturation 58 (H) 15 - 46 % [facility] Index [facility] Specimen Anatomical Collection Method Collection Time Receive d Time (Source) Location / / Volume Laterality Blood specimen 02/05/2014 7:02 AM 014 7:05 (specimen) CDT AM CDT Sina Robiosn MD LAB - BLOOD ORDERABLES Performing Organization Address City/[facility]/ZIP Code Phon e Number [facility] [address] [place] [address] [facility] LABS (ABNORMAL) Glucose by meter (02/05/2014 6:59 AM CDT) athologist Signature Glucose 123 (H) 60 - 99 POINT OF CARE mg/dL TEST, GLUCOSE Specimen Anatomical Collection Method Collection Time Receive d Time (Source) Location / / Volume Laterality 02/05/2014 6:59 AM 4 7:05 CDT AM CDT Migel JONES POCT Performing Organization Address City/[facility]/ZIP Code Phon e Number FV POINT OF [...] CDT Migel JONES POCT Performing Organization Address City/[facility]/ZIP Code Phon e Number FV POINT OF [...] LARES - BEAJ POCT Performing Organization Address City/[facility] Code Phon e Number FV [...] LAB - BEAJ POCT Performing Organization Address City/[facility]/ZIP Code Phon e Number FV POINT OF [...] LAB - BEAJ POCT Performing Organization Address City/[facility]/ZIP Code Phon e Number FV POINT OF [...] LAB - BEAJ POCT Performing Organization Address [facility] Phon e Number FV POINT OF [...] LAB - BEAJ POCT Performing Organization Address [facility] Phon e Number FV POINT OF [...] Carr MD ECG ORDERABLES Performing Organization Address [facility] Phon e Number RADIOLOGY RESULTS (ABNORMAL) Glucose by meter (02/04/2014 10:56 PM CDT) P athologist Signature Glucose 161 (H) 60 - 99 POINT OF CARE mg/dL TEST, GLUCOSE Specimen Anatomical Collection Method Collection Time Receive d Time (Source) Location / / Volume Laterality 02/04/2014 10:56 02/04/2014 PM CDT 11:00 PM CDT Migel Merchant MD LAB - BEAJ POCT Performing Organization Address [facility] Phon e Number FV POINT OF CARE TEST, GLUCOSE POINT OF CARE TEST, GLUCOSE (ABNORMAL) Glucose by meter (02/04/2014 9:58 PM CDT) P athologist Signature Glucose 177 (H) 60 - 99 POINT OF CARE mg/dL TEST, GLUCOSE Specimen Anatomical Collection Method Collection Time Receive d Time (Source) Location / / Volume Laterality 02/04/2014 9:58 PM 4 CDT 10:05 PM CDT Miegl Merchant MD LAB - BEAKER POCT Performing Organization Address [facility] Phon e Number FV POINT OF [...] LAB - BEAKER POCT Performing Organization Address [facility] Phon e Number FV POINT OF [...] LAB - BEAKER POCT Performing Organization Address [facility] Phon e Number FV POINT OF CARE TEST, GLUCOSE POINT OF CARE TEST, GLUCOSE Troponin I (02/04/2014 7:10 PM CDT) P athologist Signature Troponin I 0.016 0.000 - [facility] 0.034 ug/L [place] [facility] Specimen Anatomical Collection Method Collection Time Receive d Time (Source) Location / / Volume Laterality Blood specimen 02/04/2014 7:10 PM 014 7:23 (specimen) CDT PM CDT Adeline Diaz MD LAB - BLOOD ORDERABLES Performing Organization Address City/State/ZIP Code Phon e Number [facility] [address] [place] [address] [facility] LABS (ABNORMAL) Glucose by meter (02/04/2014 [...] LAB - BEAJ POCT Performing Organization Address City/[facility]/ZIP Code Phon e Number FV POINT OF [...] athologist Signature Troponin I 0.025 0.000 - [facility] 0.034 ug/L [place] [facility] Specimen Anatomical Collection Method Collection Time Receive d Time (Source) Location / / Volume Laterality Blood specimen 02/04/2014 12:42 4 (specimen) PM CDT 12:45 PM CDT Adeline Diaz MD LAB - BLOOD ORDERABLES Performing Organization Address City/[facility]/ZIP Code Phon e Number [facility] [address] [place] [address] [facility] LABS (ABNORMAL) Glucose by meter (02/04/2014 [...] [place]/ZIP Code Phon e Number FV POINT OF [...] [place]/ZIP Code Phon e Number FV POINT OF [...] EKG 12-lead, complete (02/04/2014 9:21 AM CDT) [facility] gist Method Time Signature Interpretation ECG Click View RADIOLOGY Image link RESULTS to view waveform and result Specimen (Source) Anatomical Collection Method Collection Time Re ceived Time Location / / Volume Laterality 02/04/2014 9:21 AM CDT Omaira Chavez PA-C ECG ORDERABLES Performing Organization Address City/[facility]/ZIP Code Phon e Number RADIOLOGY RESULTS (ABNORMAL) Glucose by meter (02/04/2014 9:02 AM CDT) athologist Signature Glucose 203 (H) 60 - 99 POINT OF CARE mg/dL TEST, GLUCOSE Specimen Anatomical Collection Method Collection Time Receive d Time (Source) Location / / Volume Laterality 02/04/2014 9:02 AM 4 9:05 CDT AM CDT Migel LARES - ROBERT POCT Performing Organization Address [facility] Code Phon e Number FV [...] LARES - ROBERT POCT Performing Organization Address City/[facility] Code Phon e Number FV [...] [place]/ZIP Code Phon e Number FV POINT OF CARE TEST, GLUCOSE POINT OF CARE TEST, GLUCOSE EKG 12-lead, complete (02/04/2014 7:03 AM CDT) [facility] gist Method Time Signature Interpretation ECG Click View RADIOLOGY Image link RESULTS to view waveform and result Specimen (Source) Anatomical Collection Method Collection Time Re ceived Time Location / / Volume Laterality 02/04/2014 7:03 AM CDT Caitlin Owens MD ECG ORDERABLES Performing Organization Address [facility]/ZIP Code Phon e Number RADIOLOGY RESULTS (ABNORMAL) Glucose by meter (02/04/2014 6:09 AM CDT) athologist Signature Glucose 160 (H) 60 - 99 POINT OF CARE mg/dL TEST, GLUCOSE Specimen Anatomical Collection Method Collection Time Receive d Time (Source) Location / / Volume Laterality 02/04/2014 6:09 AM 4 6:15 CDT AM CDT Migel Merchant MD LAB - BEAKER POCT Performing Organization Address [facility] Phon e Number FV POINT OF CARE TEST, GLUCOSE POINT OF CARE TEST, GLUCOSE Troponin I (02/04/2014 5:49 AM CDT) athologist Signature Troponin I ES <0.012 0.000 - [facility] 0.034 ug/L [facility]AMP[facility] LABS Specimen Anatomical Collection Method Collection Time Receive d Time (Source) Location / / Volume Laterality 02/04/2014 5:49 AM 4 5:51 CDT AM CDT Caitlin Owens MD LAB - BLOOD ORDERABLES Performing Organization Address City/[facility]/ZIP Code Phon e Number [facility] [address] [place] [address] [facility] LABS (ABNORMAL) Basic metabolic panel (02/04/2014 5:49 AM CDT) Patholo gist Method Time Signature Sodium 142 133 - 144 [facility] mmol/L [facility] Potassium 4.9 3.4 - 5.3 [facility] mmol/L [facility] Chloride 107 94 - 109 [facility] mmol/L [facility] Carbon Dioxide 23 20 - 32 [facility] mmol/L [facility] Anion Gap 12 6 - 17 [facility] mmol/L [facility] Glucose 151 (H) 60 - 99 [facility] mg/dL [facility] Urea Nitrogen 57 (H) 7 - 30 [facility] mg/dL [facility] Creatinine 5.94 (H) 0.66 - [facility] 1.25 mg/dL [facility] GFR Estimate 10 (L) >60 [facility] mL/min/1.7 [place] m2 [place] [facility] GFR Estimate If 12 (L) >60 [facility] Black mL/min/1.7 [place] m2 [place] [facility] Calcium 9.4 8.5 - 10.4 [facility] mg/dL [facility] Specimen Anatomical Collection Method Collection Time Receive d Time (Source) Location / / Volume Laterality Blood specimen 02/04/2014 5:49 AM 014 5:51 (specimen) CDT AM CDT Omaira Chavez PA-C LAB - BLOOD ORDERABLES Performing Organization Address City/[facility]/ZIP Code Phon e Number [address] LABS (ABNORMAL) Phosphorus (02/04/2014 5:49 AM CDT) P athologist Signature Phosphorus 6.3 (H) 2.5 - 4.5 [facility] mg/dL [place] [facility] Specimen Anatomical Collection Method Collection Time Receive d Time (Source) Location / / Volume Laterality Blood specimen 02/04/2014 5:49 AM 014 5:51 (specimen) CDT AM CDT Omaira Chavez PA-C LAB - BLOOD ORDERABLES Performing Organization Address City/State/ZIP Code Phon e Number [address] LABS Magnesium (02/04/2014 5:49 AM CDT) P athologist Signature Magnesium 2.1 1.6 - 2.3 [facility] mg/dL [place] [facility] Specimen Anatomical Collection Method Collection Time Receive d Time (Source) Location / / Volume Laterality Blood specimen 02/04/2014 5:49 AM 014 5:51 (specimen) CDT AM CDT Omaira Chavez PA-C LAB - BLOOD ORDERABLES Performing Organization Address City/State/ZIP Code Phon e Number [facility] [address] [place] [address] [facility] (ABNORMAL) CBC with platelets differential (02/04/2014 5:49 AM CDT) [facility] gist Method Time Signature WBC 13.8 (H) 4.0 - [facility] 11.0 [facility] 10e9/L [facility] RBC Count 3.10 (L) 4.4 - 5.9 [facility] 10e12/L [facility] Hemoglobin 9.5 (L) 13.3 - [facility] 17.7 g/dL [facility] Hematocrit 28.7 (L) 40.0 - [facility] 53.0 % [facility] MCV 93 78 - 100 [facility] fl [facility] [place] [facility] MCH 30.6 26.5 - [facility] 33.0 pg [facility] MCHC 33.1 31.5 - [facility] 36.5 g/dL [facility] RDW 14.6 10.0 - [facility] 15.0 % [facility] [place] [facility] Platelet Count 91 (L) 150 - 450 [facility] 10e9/L [facility] Diff Method Automated [facility] Method [facility] % Neutrophils 95.8 % [facility] % Lymphocytes 1.2 % [facility] % Monocytes 2.8 % [facility] % Eosinophils 0.0 % [facility] % Basophils 0.0 % [facility] % Immature 0.2 % [facility] Granulocytes [facility] Absolute 13.2 (H) 1.6 - 8.3 [facility] Neutrophil 10e9/L [facility] Absolute 0.2 (L) 0.8 - 5.3 [facility] Lymphocytes 10e9/L [facility] Absolute 0.4 0.0 - 1.3 [facility] Monocytes 10e9/L [facility] Absolute 0.0 0.0 - 0.7 [facility] Eosinophils 10e9/L [facility] Absolute 0.0 0.0 - 0.2 [facility] Basophils 10e9/L [facility] Abs Immature 0.0 0 - 0.4 [facility] Granulocytes 10e9/L [facility] Specimen Anatomical Collection Method Collection Time Receive d Time (Source) Location / / Volume Laterality Blood specimen 02/04/2014 5:49 AM 014 5:51 (specimen) CDT AM CDT Omaira Chavez PA-C LAB - BLOOD ORDERABLES Performing Organization Address City/[facility]/ZIP Code Phon e Number [address] [address] [facility] LABS (ABNORMAL) Glucose by meter (02/04/2014 5:33 AM CDT) P athologist Signature Glucose 155 (H) 60 - 99 POINT OF CARE mg/dL TEST, GLUCOSE Specimen Anatomical Collection Method Collection Time Receive d Time (Source) Location / / Volume Laterality 02/04/2014 5:33 AM 4 5:35 CDT AM CDT Migel LARES - ROBERT POCT Performing Organization Address City/[facility]/ZIP Code Phon e Number FV POINT OF [...] LARES - ROBERT POCT Performing Organization Address City/[facility]/ZIP Code Phon e Number FV POINT OF [...] LARES - ROBERT POCT Performing Organization Address City/[facility]/ZIP Code Phon e Number FV POINT OF [...] LAB - BEAJ POCT Performing Organization Address City/[facility]/ZIP Code Phon e Number FV POINT OF [...] LAB - ROBERT POCT Performing Organization Address [facility]/ZIP Code Phon e Number FV POINT OF [...] [place]/ZIP Code Phon e Number FV POINT OF CARE TEST, GLUCOSE POINT OF CARE TEST, GLUCOSE Potassium (02/03/2014 10:16 PM CDT) P athologist Signature Potassium 4.8 3.4 - 5.3 [facility] mmol/L [place] [facility] Specimen Anatomical Collection Method Collection Time Receive d Time (Source) Location / / Volume Laterality Blood specimen 02/03/2014 10:16 4 (specimen) PM CDT 10:19 PM CDT Caitlin Owens MD LAB - BLOOD ORDERABLES Performing Organization Address City/State/ZIP Code Phon e Number [facility] [address] [place], [place] [id number] [place] [address] LABS (ABNORMAL) Hemoglobin (02/03/2014 10:16 PM CDT) athologist Signature Hemoglobin 9.4 (L) 13.3 - 17.7 [facility] g/dL [place] [facility] Specimen Anatomical Collection Method Collection Time Receive d Time (Source) Location / / Volume Laterality Blood specimen 02/03/2014 10:16 4 (specimen) PM CDT 10:19 PM CDT Caitlin Owens MD LAB - BLOOD ORDERABLES Performing Organization Address City/[facility]/ZIP Code Phon e Number [facility] [address] [place], [place] [id number] [place] [address] LABS (ABNORMAL) Glucose by meter (02/03/2014 9:55 PM CDT) athologist Signature Glucose 167 (H) 60 - 99 POINT OF CARE mg/dL TEST, GLUCOSE Specimen Anatomical Collection Method Collection Time Receive d Time (Source) Location / / Volume Laterality 02/03/2014 9:55 PM 4 CDT 10:00 PM CDT Migel LARES - ROBERT POCT Performing Organization Address City/[facility]/ZIP Code Phon e Number FV POINT OF [...] LARES - BEAJ POCT Performing Organization Address City/[facility]/ZIP Code Phon e Number FV POINT OF [...] LARES - ROBERT POCT Performing Organization Address [facility]/ZIP Code Phon e Number FV POINT OF CARE TEST, GLUCOSE POINT OF CARE TEST, GLUCOSE Potassium (02/03/2014 6:52 PM CDT) athologist Signature Potassium 4.7 3.4 - 5.3 [facility] mmol/L [facility] Specimen Anatomical Collection Method Collection Time Receive d Time (Source) Location / / Volume Laterality Blood specimen 02/03/2014 6:52 PM 014 6:53 (specimen) CDT PM CDT Caitlin Owens MD LAB - BLOOD ORDERABLES Performing Organization Address [facility] Code Phon e Number [address] LABS (ABNORMAL) Hemoglobin (02/03/2014 6:52 PM CDT) athologist Signature Hemoglobin 9.6 (L) 13.3 - 17.7 [facility] g/dL [facility] Specimen Anatomical Collection Method Collection Time Receive d Time (Source) Location / / Volume Laterality Blood specimen 02/03/2014 6:52 PM 014 6:53 (specimen) CDT PM CDT Caitlin Owens MD LAB - BLOOD ORDERABLES Performing Organization Address City/[facility]/ZIP Code Phon e Number [address] LABS (ABNORMAL) Glucose by meter (02/03/2014 6:00 PM CDT) P athologist Signature Glucose 140 (H) 60 - 99 POINT OF CARE mg/dL TEST, GLUCOSE Specimen Anatomical Collection Method Collection Time Receive d Time (Source) Location / / Volume Laterality 02/03/2014 6:00 PM 4 6:05 CDT PM CDT Migel Merchant MD LAB - BEAJ POCT Performing Organization Address City/[facility]/ZIP Code Phon e Number FV POINT OF [...] LAB - BEAJ POCT Performing Organization Address City/[facility]/ZIP Code Phon e Number FV POINT OF [...] LAB - BEAJ POCT Performing Organization Address City/[facility]/ZIP Code Phon e Number FV POINT OF [...] athologist Signature Potassium 4.7 3.4 - 5.3 [facility] mmol/L [facility] Specimen Anatomical Collection Method Collection Time Receive d Time (Source) Location / / Volume Laterality Blood specimen 02/03/2014 1:41 PM 014 1:43 (specimen) CDT PM CDT Caitlin Owens MD LAB - BLOOD ORDERABLES Performing Organization Address City/[facility]/ZIP Code Phon e Number [facility] [address] LABS (ABNORMAL) Hemoglobin (02/03/2014 1:41 PM CDT) athologist Signature Hemoglobin 9.8 (L) 13.3 - 17.7 [facility] g/dL [place] [facility] Specimen Anatomical Collection Method Collection Time Receive d Time (Source) Location / / Volume Laterality Blood specimen 02/03/2014 1:41 PM 014 1:43 (specimen) CDT PM CDT Caitlin Owens MD LAB - BLOOD ORDERABLES Performing Organization Address City/[facility]/ZIP Code Phon e Number [address] LABS (ABNORMAL) Glucose by meter (02/03/2014 [...] CDT Migel JONES POCT Performing Organization Address City/[facility]/ZIP Code Phon e Number FV POINT OF CARE TEST, GLUCOSE POINT OF CARE TEST, GLUCOSE Potassium (02/03/2014 10:11 AM CDT) P athologist Signature Potassium 4.8 3.4 - 5.3 [facility] mmol/L [facility] Specimen Anatomical Collection Method Collection Time Receive d Time (Source) Location / / Volume Laterality Blood specimen 02/03/2014 10:11 4 (specimen) AM CDT 10:23 AM CDT Caitlin Owens MD LAB - BLOOD ORDERABLES Performing Organization Address City/[facility]/ZIP Code Phon e Number [address] LABS (ABNORMAL) Hemoglobin (02/03/2014 10:11 AM CDT) P athologist Signature Hemoglobin 9.7 (L) 13.3 - 17.7 [facility] g/dL [facility] Specimen Anatomical Collection Method Collection Time Receive d Time (Source) Location / / Volume Laterality Blood specimen 02/03/2014 10:11 4 (specimen) AM CDT 10:23 AM CDT Caitlin Owens MD LAB - BLOOD ORDERABLES Performing Organization Address City/[facility]/ZIP Code Phon e Number [address] LABS (ABNORMAL) Glucose by meter (02/03/2014 9:58 AM CDT) P athologist Signature Glucose 168 (H) 60 - 99 POINT OF CARE mg/dL TEST, GLUCOSE Specimen Anatomical Collection Method Collection Time Receive d Time (Source) Location / / Volume Laterality 02/03/2014 9:58 AM 4 CDT 10:00 AM CDT Migel Merchant MD LAB - BEAKER POCT Performing Organization Address [facility] Phon e Number FV POINT OF [...] LARES - BEAJ POCT Performing Organization Address [facility] Phon e Number FV POINT OF [...] findings. AIRAM [place] MD Jose Aguirre MD [facility] ORDERABLES (ABNORMAL) Glucose by meter (02/03/2014 8:06 AM CDT) P athologist Signature Glucose 176 (H) 60 - 99 POINT OF CARE mg/dL TEST, GLUCOSE Specimen Anatomical Collection Method Collection Time Receive d Time (Source) Location / / Volume Laterality 02/03/2014 8:06 AM 4 8:10 CDT AM CDT Migel Merchant MD [facility] POCT Performing Organization Address City/State/ZIP [...] LAB - ROBERT POCT Performing Organization Address City/[facility]/ZIP Code Phon e Number FV POINT OF CARE TEST, GLUCOSE POINT OF CARE TEST, GLUCOSE (ABNORMAL) Basic metabolic panel (02/03/2014 5:38 AM CDT) Patholo gist Method Time Signature Sodium 141 133 - 144 [facility] mmol/L [facility] [place] [facility] Potassium 4.4 3.4 - 5.3 [facility] mmol/L [facility] Chloride 105 94 - 109 [facility] mmol/L [facility] Carbon Dioxide 20 20 - 32 [facility] mmol/L [facility] Anion Gap 15 6 - 17 [facility] mmol/L [facility] Glucose 170 (H) 60 - 99 [facility] mg/dL [facility] Urea Nitrogen 49 (H) 7 - 30 [facility] mg/dL [facility] Creatinine 6.38 (H) 0.66 - [facility] 1.25 mg/dL [facility] GFR Estimate 9 (L) >60 [facility] mL/min/1.7 [place] m2 [facility] LABS GFR Estimate If 11 (L) >60 [facility] Black mL/min/1.7 [place] [address] CAMPUS LABS Calcium 9.1 8.5 - 10.4 [facility] mg/dL [facility] [place] [facility] Specimen Anatomical Collection Method Collection Time Receive d Time (Source) Location / / Volume Laterality Blood specimen 02/03/2014 5:38 AM 014 5:40 (specimen) CDT AM CDT Omaira Chavez PA-C LAB - BLOOD ORDERABLES Performing Organization Address City/State/ZIP Code Phon e Number [facility] [address] LABS (ABNORMAL) Phosphorus (02/03/2014 5:38 AM CDT) athologist Signature Phosphorus 4.7 (H) 2.5 - 4.5 [facility] mg/dL [place] [facility] Specimen Anatomical Collection Method Collection Time Receive d Time (Source) Location / / Volume Laterality Blood specimen 02/03/2014 5:38 AM 014 5:40 (specimen) CDT AM CDT Omaira Chavez PA-C LAB - BLOOD ORDERABLES Performing Organization Address City/[facility]/ZIP Code Phon e Number [facility] [address] LABS Magnesium (02/03/2014 5:38 AM CDT) athologist Signature Magnesium 2.0 1.6 - 2.3 [facility] mg/dL [place] [facility] Specimen Anatomical Collection Method Collection Time Receive d Time (Source) Location / / Volume Laterality Blood specimen 02/03/2014 5:38 AM 014 5:40 (specimen) CDT AM CDT Omaira Chavez PA-C LAB - BLOOD ORDERABLES Performing Organization Address City/State/ZIP Code Phon e Number [facility] [address] LABS (ABNORMAL) CBC with platelets differential (02/03/2014 5:38 AM CDT) [facility] Method Time Signature WBC 13.2 (H) 4.0 - [facility] 11.0 [place] 10e9/L [place] [facility] RBC Count 3.20 (L) 4.4 - 5.9 [facility] 10e12/L [facility] Hemoglobin 9.9 (L) 13.3 - [facility] 17.7 g/dL [facility] Hematocrit 30.2 (L) 40.0 - [facility] 53.0 % [facility] MCV 94 78 - 100 [facility] fl [facility] MCH 30.9 26.5 - [facility] 33.0 pg [facility] MCHC 32.8 31.5 - [facility] 36.5 g/dL [facility] RDW 14.5 10.0 - [facility] 15.0 % [facility] Platelet Count 108 (L) 150 - 450 [facility] 10e9/L [facility] [place] [facility] Diff Method Automated [facility] Method [facility] % Neutrophils 96.9 % [facility] % Lymphocytes 0.7 % [facility] % Monocytes 2.1 % [facility] % Eosinophils 0.0 % [facility] % Basophils 0.1 % [facility] % Immature 0.2 % [facility] Granulocytes [facility] Absolute 12.8 (H) 1.6 - 8.3 [facility] Neutrophil 10e9/L [facility] Absolute 0.1 (L) 0.8 - 5.3 [facility] Lymphocytes 10e9/L [facility] Absolute 0.3 0.0 - 1.3 [facility] Monocytes 10e9/L [facility] Absolute 0.0 0.0 - 0.7 [facility] Eosinophils 10e9/L [facility] Absolute 0.0 0.0 - 0.2 [facility] Basophils 10e9/L [facility] Abs Immature 0.0 0 - 0.4 [facility] Granulocytes 10e9/L [facility] Specimen Anatomical Collection Method Collection Time Receive d Time (Source) Location / / Volume Laterality Blood specimen 02/03/2014 5:38 AM 014 5:40 (specimen) CDT AM CDT Omaira Chavez PA-C LAB - BLOOD ORDERABLES Performing Organization Address City/[facility]/ZIP Code Phon e Number [address] LABS (ABNORMAL) Hemoglobin A1c (02/03/2014 5:38 AM CDT) Analysis Performed At Patho logist Time Signature Hemoglobin A1C 6.2 (H) 4.3 - 6.0 [facility] % [facility] Specimen Anatomical Collection Method Collection Time Receive d Time (Source) Location / / Volume Laterality Blood specimen 02/03/2014 5:38 AM 014 5:40 (specimen) CDT AM CDT Caitlin Owens MD LAB - BLOOD ORDERABLES Performing Organization Address City/[facility]/ZIP Code Phon e Number [address] LABS (ABNORMAL) Glucose by meter (02/03/2014 5:05 AM CDT) P athologist Signature Glucose 176 (H) 60 - 99 POINT OF CARE mg/dL TEST, GLUCOSE Specimen Anatomical Collection Method Collection Time Receive d Time (Source) Location / / Volume Laterality 02/03/2014 5:05 AM 4 5:10 CDT AM CDT Migel Merchant MD LAB - BEAKER POCT Performing Organization Address [facility] Code Phon e Number FV [...] LAB - BEAJ POCT Performing Organization Address [facility] Phon e Number FV POINT OF [...] LAB - BEAKER POCT Performing Organization Address [facility] Phon e Number FV POINT OF [...] LAB - BEAJ POCT Performing Organization Address [facility] Phon e Number FV POINT OF CARE TEST, GLUCOSE POINT OF CARE TEST, GLUCOSE Potassium (02/03/2014 1:18 AM CDT) athologist Signature Potassium 4.7 3.4 - 5.3 [facility] mmol/L CAMPUS LABS Specimen Anatomical Collection Method Collection Time Receive d Time (Source) Location / / Volume Laterality Blood specimen 02/03/2014 1:18 AM 014 1:20 (specimen) CDT AM CDT Caitlin Owens MD LAB - BLOOD ORDERABLES Performing Organization Address City/[facility]/ZIP Code Phon e Number [facility] [address] LABS (ABNORMAL) Hemoglobin (02/03/2014 1:18 AM CDT) athologist Signature Hemoglobin 9.8 (L) 13.3 - 17.7 [facility] g/dL [place] [facility] Specimen Anatomical Collection Method Collection Time Receive d Time (Source) Location / / Volume Laterality Blood specimen 02/03/2014 1:18 AM 014 1:20 (specimen) CDT AM CDT Caitlin Owens MD LAB - BLOOD ORDERABLES Performing Organization Address City/[facility]/ZIP Code Phon e Number [address] LABS (ABNORMAL) Glucose by meter (02/03/2014 [...] CDT 12:15 AM CDT Migel Merchant MD [facility] POCT Performing Organization Address City/State/ZIP Code Phon [...] athologist Signature Phosphorus 4.4 2.5 - 4.5 [facility] mg/dL CAMPUS LABS Specimen Anatomical Collection Method Collection Time Receive d Time (Source) Location / / Volume Laterality Blood specimen 02/02/2014 10:50 4 (specimen) PM CDT 11:06 PM CDT Caitlin Owens MD LAB - BLOOD ORDERABLES Performing Organization Address City/[facility]/ZIP Code Phon e Number [facility] [address] LABS Magnesium (02/02/2014 10:50 PM CDT) athologist Signature Magnesium 1.8 1.6 - 2.3 [facility] mg/dL [place] [facility] Specimen Anatomical Collection Method Collection Time Receive d Time (Source) Location / / Volume Laterality Blood specimen 02/02/2014 10:50 4 (specimen) PM CDT 11:06 PM CDT Caitlin Owens MD LAB - BLOOD ORDERABLES Performing Organization Address City/[facility]/ZIP Code Phon e Number [facility] [address] LABS (ABNORMAL) Basic metabolic panel (02/02/2014 10:50 PM CDT) [facility] gist Method Time Signature Sodium 138 133 - 144 [facility] mmol/L [facility] Potassium 4.5 3.4 - 5.3 [facility] mmol/L [facility] Chloride 104 94 - 109 [facility] mmol/L [facility] Carbon Dioxide 25 20 - 32 [facility] mmol/L [facility] Anion Gap 10 6 - 17 [facility] mmol/L [facility] Glucose 134 (H) 60 - 99 [facility] mg/dL [facility] Urea Nitrogen 44 (H) 7 - 30 [facility] mg/dL [facility] Creatinine 6.14 (H) 0.66 - [facility] 1.25 mg/dL [facility] GFR Estimate 9 (L) >60 [facility] mL/min/1.[address] LABS GFR Estimate If 11 (L) >60 [facility] Black mL/min/1.7 [place] [address] CAMPUS LABS Calcium 8.8 8.5 - 10.4 [facility] mg/dL [facility] Specimen Anatomical Collection Method Collection Time Receive d Time (Source) Location / / Volume Laterality Blood specimen 02/02/2014 10:50 4 (specimen) PM CDT 11:06 PM CDT Caitlin Owens MD LAB - BLOOD ORDERABLES Performing Organization Address City/State/ZIP Code Phon e Number [address] LABS (ABNORMAL) CBC with platelets differential (02/02/2014 10:50 PM CDT) [facility] gist Method Time Signature WBC 8.2 4.0 - [facility] 11.0 [facility] 10e9/L [place] [facility] RBC Count 3.34 (L) 4.4 - 5.9 [facility] 10e12/L [facility] Hemoglobin 10.3 (L) 13.3 - [facility] 17.7 g/dL [facility] Hematocrit 30.9 (L) 40.0 - [facility] 53.0 % [facility] MCV 93 78 - 100 [facility] fl [facility] MCH 30.8 26.5 - [facility] 33.0 pg [facility] MCHC 33.3 31.5 - [facility] 36.5 g/dL [facility] RDW 14.3 10.0 - [facility] 15.0 % [facility] Platelet Count 79 (L) 150 - 450 [facility] 10e9/L [facility] Diff Method Automated [facility] Method [facility] % Neutrophils 96.7 % [facility]S % Lymphocytes 1.6 % [facility]S % Monocytes 1.2 % [facility] % Eosinophils 0.4 % [facility] % Basophils 0.0 % [facility] % Immature 0.1 % [facility] Granulocytes [facility] Absolute 7.9 1.6 - 8.3 [facility] Neutrophil 10e9/L [facility] Absolute 0.1 (L) 0.8 - 5.3 [facility] Lymphocytes 10e9/L [facility] Absolute 0.1 0.0 - 1.3 [facility] Monocytes 10e9/L [facility] Absolute 0.0 0.0 - 0.7 [facility] Eosinophils 10e9/L [facility] Absolute 0.0 0.0 - 0.2 [facility] Basophils 10e9/L [facility] Abs Immature 0.0 0 - 0.4 [facility] Granulocytes 10e9/L [facility] Specimen Anatomical Collection Method Collection Time Receive d Time (Source) Location / / Volume Laterality Blood specimen 02/02/2014 10:50 4 (specimen) PM CDT 11:06 PM CDT Caitlin Owens MD LAB - BLOOD ORDERABLES Performing Organization Address City/State/ZIP Code Phon e Number [facility] [address] [place], [place] [phone] [place] [address] LABS (ABNORMAL) VENOUS PANEL (02/02/2014 10:09 PM CDT) [facility] gist Method Time Signature Ph Venous 7.31 (L) 7.32 - [facility] 7.43 pH [facility] PCO2 Venous 52 (H) 40 - 50 [facility] mm Hg [facility] PO2 Venous 34 25 - 47 [facility] mm Hg [facility] Bicarbonate 26 21 - 28 [facility] Venous mmol/L [facility] Base Deficit 0.3 mmol/L [facility] Venous [facility] Comment: Reference range: -7.7 to 1.9 FIO2 45 [facility] LABS Sodium 137 133 - 144 mmol/L [facility] LABS Potassium 4.4 3.4 - 5.3 mmol/L [facility] LABS Hemoglobin 10.0 (L) 13.3 - 17.7 g/dL [facility] LABS Glucose 116 (H) 60 - 99 mg/dL [facility] LABS Calcium Ionized Whole Blood 4.8 4.4 - 5.2 mg/dL [facility] LABS Specimen Anatomical Collection Method Collection Time Receive d Time (Source) Location / / Volume Laterality 02/02/2014 10:09 02/02/2014 PM CDT 10:14 PM CDT Migel Nathan Finger MD LAB - BLOOD ORDERABLES Performing Organization Address City/State/ZIP Code Phon e Number [address] [address] [facility] LABS (ABNORMAL) Glucose by meter (02/02/2014 [...] Venous 7.35 7.32 - [facility] 7.43 pH [facility] PCO2 Venous 50 40 - 50 mm [facility] Hg [facility] PO2 Venous 46 25 - 47 mm [facility] Hg [facility] Bicarbonate 28 21 - 28 [facility] Venous mmol/L [facility] Base Excess 1.8 mmol/L [facility] Venous [facility] Comment: Reference range: -7.7 to 1.9 FIO2 100% [facility] LABS Sodium 141 133 - 144 mmol/L [facility] LABS Potassium 3.7 3.4 - 5.3 mmol/L [facility] LABS Hemoglobin 10.3 (L) 13.3 - 17.7 g/dL [facility] LABS Glucose 76 60 - 99 mg/dL [facility] LABS Calcium Ionized Whole Blood 4.8 4.4 - 5.2 mg/dL [facility] LABS Specimen Anatomical Collection Method Collection Time Receive d Time (Source) Location / / Volume Laterality 02/02/2014 6:40 PM 4 6:44 CDT PM CDT Migel Merchant MD LAB - BLOOD ORDERABLES Performing Organization Address City/[facility]/ZIP Code Phon e Number [facility] [address] [place] [address] [facility] LABS Glucose by meter (02/02/2014 5:11 PM CDT) P athologist Signature Glucose 89 60 - 99 POINT OF CARE mg/dL TEST, GLUCOSE Specimen Anatomical Collection Method Collection Time Receive d Time (Source) Location / / Volume Laterality 02/02/2014 5:11 PM 4 5:15 CDT PM CDT Migel LARES - BEAJ POCT Performing Organization Address City/[facility] Phon e Number FV POINT OF [...] LARES - BEAKER POCT Performing Organization Address [facility] Phon e Number FV POINT OF [...] MARYELLEN Blood component (02/02/2014 2:07 PM CDT) [employer] Method Time Signature Unit Number [id number] [facility] LABS Blood Red Blood [facility] Component Cells [facility] LABS Reduced Division 00 Critical access hospital LABS Status of No longer [facility] Unit available [facility] 02/06/2014 HOSPITAL LAB 0300 Specimen Anatomical Collection Method Collection Time Receive d Time (Source) Location / / Volume Laterality 02/02/2014 2:07 PM 4 2:10 CDT PM CDT Caitlin Owens MD LABORATORY Performing Organization Address City/State/ZIP Code [facility] e Number M [address] [facility] LABS [facility] LAB Blood component (02/02/2014 2:07 PM CDT) [employer] Method Time Signature Unit Number [id number] [facility] LABS Blood Red Blood [facility] Component Cells [facility] LABS Reduced Division 00 Critical access hospital LABS Status of No longer [facility] Unit available [facility] 02/06/2014 HOSPITAL LAB 0300 Specimen Anatomical Collection Method Collection Time Receive d Time (Source) Location / / Volume Laterality 02/02/2014 2:07 PM 4 2:10 CDT PM CDT Caitlin Owens MD LABORATORY Performing Organization Address City/State/ZIP Code Phon e Number [facility] [address] [place], [place] [address] HOSPITAL [facility] LABS [facility] LAB ABO/Rh type and screen (02/02/2014 2:07 PM CDT) Patholo gist Method Time Signature Units Ordered 2 [facility] LABS ABO A [facility] LABS RH(D) Pos [facility] LABS Antibody Neg [facility] Screen [facility] Test Valid [facility] Only At [facility] BLOOD BANK Center,[place] LAB w Hospital Specimen 02/05/2014 [facility] Crossmatch Red Blood [facility] Cells [facility]S Specimen Anatomical Collection Method Collection Time Receive d Time (Source) Location / / Volume Laterality Blood specimen 02/02/2014 2:07 PM 014 2:10 (specimen) CDT PM CDT Caitlin Owens MD LAB - BLOOD BANK TEST ORDER Performing Organization Address City/State/ZIP Code Phon e Number [facility] [address] [place] [address] [facility] LABS [facility] BLOOD BANK LAB (ABNORMAL) Lipid Profile (02/02/2014 2:07 PM CDT) P athologist Signature Cholesterol 135 <200 mg/dL [facility] LABS Comment: LDL Cholesterol is the primary guide to therapy. The NCEP recommends further evaluation of: patients with cholesterol greater than 200 mg/dL if additional risk facto rs are present, cholesterol greater than 240 mg/dL, triglycerides greater than 1 50 mg/dL, or HDL less than 40 mg/dL. Triglycerides 124 0 - 150 mg/dL [facility] LAB[facility] HDL Cholesterol 34 (L) >40 mg/dL [facility] LABS LDL Cholesterol Calculated 77 0 - 129 mg/dL [facility] LABS Comment: LDL Cholesterol is the primary guide to therapy: LDL-cholesterol goal in high risk patients is <100 mg/dL and in very high risk patients is <70 mg/dL. VLDL-Cholesterol 25 0 - 30 mg/dL [facility] LABS Cholesterol/HDL Ratio 4.0 0.0 - 5.0 [facility] LABS Specimen Anatomical Collection Method Collection Time Receive d Time (Source) Location / / Volume Laterality Blood specimen 02/02/2014 2:07 PM 014 2:08 (specimen) CDT PM CDT Caitlin Owens MD LAB - BLOOD ORDERABLES Performing Organization Address City/[facility]/ZIP Code Phon e Number [facility] [address] LABS (ABNORMAL) Hemoglobin A1c (02/02/2014 2:07 PM CDT) Analysis Performed At Patho logist Time Signature Hemoglobin A1C 6.2 (H) 4.3 - 6.0 [facility] LABS Specimen Anatomical Collection Method Collection Time Receive d Time (Source) Location / / Volume Laterality Blood specimen 02/02/2014 2:07 PM 014 2:08 (specimen) CDT PM CDT Caitlin Owens MD LAB - BLOOD ORDERABLES Performing Organization Address City/[facility]/ZIP Code Phon e Number [facility] [address] LABS Hepatitis C antibody (02/02/2014 2:07 [...] [place]/ZIP Code Phon e Number [facility] [address] MICROBIOLOGY Hepatitis B core antibody IgM [...] Code Phon e Number [facility] 500 [place], [place] [id number] [place] [address] MICROBIOLOGY Hepatitis B surface antigen (02/02/2014 2:07 [...] Code Phon e Number [facility] [address] [place], [place] [phone] [place] [address] MICROBIOLOGY HIV Antigen Antibody Combo (02/02/2014 2:07 PM CDT) [facility] Signature HIV Antigen Nonreactive NR [facility] Antibody HIV-1 p24 Ag & HIV-1/HIV-2 Ab Not Detected [facility] LABS Specimen Anatomical Collection Method Collection Time Receive d Time (Source) Location / / Volume Laterality Blood specimen 02/02/2014 2:07 PM 014 2:08 (specimen) CDT PM CDT Caitlin Owens MD LAB - BLOOD ORDERABLES Performing Organization Address City/State/ZIP Code Phon e Number [address] LABS EBV Capsid Antibody IgM (02/02/2014 2:07 PM CDT) [facility] Signature EBV Capsid <0.2 0.0 - 0.8 [facility] Antibody IgM No detectable antibody. AI [facility] LAB[facility] Specimen Anatomical Collection Method Collection Time Receive d Time (Source) Location / / Volume Laterality Blood specimen 02/02/2014 2:07 PM 014 2:08 (specimen) CDT PM CDT Caitlin Owens MD LAB - BLOOD ORDERABLES Performing Organization Address City/[facility]/ZIP Code Phon e Number [address] LABS (ABNORMAL) EBV Capsid Antibody IgG (02/02/2014 2:07 PM CDT) [facility] Signature EBV Capsid >8.0 0.0 - 0.8 [facility] Antibody IgG Positive, suggests recent or past exposure [facility] (H) [place] LABS Specimen Anatomical Collection Method Collection Time Receive d Time (Source) Location / / Volume Laterality Blood specimen 02/02/2014 2:07 PM 014 2:08 (specimen) CDT PM CDT Caitlin Owens MD LAB - BLOOD ORDERABLES Performing Organization Address City/[facility]/ZIP Code Phon e Number [facility] [address] LABS CMV antibody IgM (02/02/2014 2:07 PM CDT) Analysis Performed At Patho logist Time Signature CMV Antibody <0.2 0.0 - 0.8 [facility] IgM Negative [facility] LABS Specimen Anatomical Collection Method Collection Time Receive d Time (Source) Location / / Volume Laterality Blood specimen 02/02/2014 2:07 PM 014 2:08 (specimen) CDT PM CDT Caitlin Owens MD LAB - BLOOD ORDERABLES Performing Organization Address City/[facility]/ZIP Code Phon e Number [facility] [address] LABS (ABNORMAL) CMV Antibody IgG (02/02/2014 2:07 PM CDT) P athologist Signature CMV Antibody 7.8 (H) 0.0 - 0.8 [facility] IgG [facility] LABS Comment: Positive Specimen Anatomical Collection Method Collection Time Receive d Time (Source) Location / / Volume Laterality Blood specimen 02/02/2014 2:07 PM 014 2:08 (specimen) CDT PM CDT Caitlin Owens MD LAB - BLOOD ORDERABLES Performing Organization Address City/[facility]/ZIP Code Phon e Number [facility] [address] LABS (ABNORMAL) Comprehensive metabolic panel (02/02/2014 2:07 PM CDT) Patholo gist Method Time Signature Sodium 141 133 - 144 [facility] mmol/L [facility]S Potassium 4.2 3.4 - 5.3 [facility] mmol/L [facility] Chloride 101 94 - 109 [facility] mmol/L [facility] Carbon Dioxide 26 20 - 32 [facility] mmol/L [facility] Anion Gap 13 6 - 17 [facility] mmol/L [facility] Glucose 112 (H) 60 - 99 [facility] mg/dL [facility] Urea Nitrogen 42 (H) 7 - 30 [facility] mg/dL [place] [facility] LABS Creatinine 6.03 (H) 0.66 - [facility] 1.25 UN[facility]ERSITY mg/dL CAMPUS LABS GFR Estimate 9 (L) >60 [facility] mL/min/1. [place] 7m2 CAMPUS LABS GFR Estimate If 11 (L) >60 [facility] Black mL/min/1. [place] 7 CAMPUS LABS Calcium 9.9 8.5 - [facility] 10.4 [place] mg/dL CAMPUS LABS Bilirubin Total 0.7 0.2 - 1.3 [facility] mg/dL [place] [facility] LABS Albumin 4.2 3.3 - 4.9 [facility] g/dL [facility] Protein Total 7.5 6.8 - 8.8 [facility] g/dL [facility] Alkaline 88 40 - 150 [facility] Phosphatase U/L [facility] ALT 33 0 - 70 [facility] U/L [facility] AST 18 0 - 45 [facility] U/L [facility]S Specimen Anatomical Collection Method Collection Time Receive d Time (Source) Location / / Volume Laterality Blood specimen 02/02/2014 2:07 PM 014 2:08 (specimen) CDT PM CDT Caitlin Owens MD LAB - BLOOD ORDERABLES Performing Organization Address City/State/ZIP Code Phon e Number [phone] [place] [address] LABS (ABNORMAL) CBC with platelets differential (02/02/2014 2:07 PM CDT) [facility] gist Method Time Signature WBC 6.3 4.0 - [facility] 11.0 [place] 10e9/L [place] LABS RBC Count 3.71 (L) 4.4 - 5.9 [facility] 10e12/L [facility] LABS Hemoglobin 11.5 (L) 13.3 - [facility] 17.7 g/dL [facility] LABS Hematocrit 33.7 (L) 40.0 - [facility] 53.0 % [facility] [place] LABS MCV 91 78 - 100 [facility] fl [facility] [place] [facility] MCH 31.0 26.5 - [facility] 33.0 pg [facility] LABS MCHC 34.1 31.5 - [facility] 36.5 g/dL [facility]S RDW 14.0 10.0 - [facility] 15.0 % [facility]S Platelet Count 110 (L) 150 - 450 [facility] 10e9/L [facility] Diff Method Automated [facility] Method [facility] % Neutrophils 52.4 % [facility] LABS % Lymphocytes 32.1 % [facility] % Monocytes 7.9 % [facility] % Eosinophils 7.1 % [facility] % Basophils 0.3 % [facility] [place] [facility] % Immature 0.2 % [facility] Granulocytes [facility] Absolute 3.3 1.6 - 8.3 [facility] Neutrophil 10e9/L [facility] Absolute 2.0 0.8 - 5.3 [facility] Lymphocytes 10e9/L [facility] Absolute 0.5 0.0 - 1.3 [facility] Monocytes 10e9/L [facility] Absolute 0.5 0.0 - 0.7 [facility] Eosinophils 10e9/L [facility] Absolute 0.0 0.0 - 0.2 [facility] Basophils 10e9/L [facility] LABS Abs Immature 0.0 0 - 0.4 [facility] Granulocytes 10e9/L [facility] LABS Specimen Anatomical Collection Method Collection Time Receive d Time (Source) Location / / Volume Laterality Blood specimen 02/02/2014 2:07 PM 014 2:08 (specimen) CDT PM CDT Caitlin Owens MD LAB - BLOOD ORDERABLES Performing Organization Address City/[facility] Phon e Number [address] LABS Creatinine urine calculation only (02/02/2014 2:00 PM CDT) P athologist Signature Creatinine 88 mg/dL [facility] Urine [place] LABS Specimen Anatomical Collection Method Collection Time Receive d Time (Source) Location / / Volume Laterality 02/02/2014 2:00 PM 4 2:12 CDT PM CDT Caitlin Owens MD LAB - URINE ORDERABLES Performing Organization Address City/[facility] Code Phon e Number [address] LABS (ABNORMAL) Urine culture (02/02/2014 2:00 PM CDT) Component Value Ref Test Analysis Performed At Patholo gist Range Method Time Signature Specimen Midstream Urine [facility] Description [facility] LABS Special Specimen received [facility] Requests in preservative MICROBIOLOGY Culture Micro <10,000 colonies/mL Gram pos itive cocci No further identification Susceptibility [facility] testing not routinely done [place] CROBIOLOGY <10,000 colonies/mL Strain 2 Gram positive [...] [place]/ZIP Code Phon e Number [address] LABS [facility] MICROBIOLOGY (ABNORMAL) Protein random urine (02/02/2014 2:00 PM CDT) [facility] Method Time Signature Protein Random 1.89 g/L [facility] Urine [facility] LABS Protein Total 2.15 (H) 0 - 0.2 [facility] Urine g/gr g/g Cr [facility] LABS Specimen Anatomical Collection Method Collection Time Receive d Time (Source) Location / / Volume Laterality Urine specimen URINE SPECIMEN 02/02/2014 2:00 PM 02/02 2:12 (specimen) OBTAINED BY CLEAN CDT PM CDT CATCH PROCEDURE / Unknown Caitlin Owens MD LAB - URINE ORDERABLES Performing Organization Address City/[facility] Code Phon e Number [address] LABS (ABNORMAL) Routine UA with microscopic (02/02/2014 2:00 PM CDT) [facility] [employer] TV Method Time Signature Color Urine Light Yellow [facility] Appearance Urine Clear [facility] Glucose Urine 70 (A) NEG mg/dL [facility] Bilirubin Urine Negative NEG [facility] Ketones Urine Negative NEG mg/dL [facility] Specific [place] 1.008 1.003 - [facility] Urine 1.035 [facility] Blood Urine Negative NEG [facility] pH Urine 8.0 (H) 5.0 - 7.0 [facility] Protein Albumin 100 (A) NEG mg/dL [facility] Urine [facility] Urobilinogen Normal 0.0 - 2.0 [facility] mg/dL mg/dL [facility] Nitrite Urine Negative NEG [facility] Leukocyte Negative NEG [facility] Esterase Urine [facility] Source Clean catch [facility] urine [facility] WBC Urine 1 0 - 2 [facility] /HPF [facility] RBC Urine 0 0 - 2 [facility] /HPF [facility] Squamous <1 0 - 1 [facility] Epithelial /HPF /HPF [place] Urine [place] LAB[facility] Specimen Anatomical Collection Method Collection Time Receive d Time (Source) Location / / Volume Laterality Urine specimen URINE SPECIMEN 02/02/2014 2:00 PM 02/02 2:12 (specimen) OBTAINED BY CLEAN CDT PM CDT CATCH PROCEDURE / Unknown Caitlin Owens MD LAB - URINE ORDERABLES Performing Organization Address City/State/ZIP Code Phon e Number [id number] [place] [address] LABS (ABNORMAL) Glucose by meter (02/02/2014 1:59 [...] [place]/ZIP Code Phon e Number [facility] POINT OF CARE TEST, GLUCOSE POINT OF CARE TEST, GLUCOSE EKG 12-lead, tracing only (02/02/2014 1:58 PM CDT) [facility] gist Method Time Signature Interpretation [...] mL (COMPL ETED) 0915 (Given - Provider: Vriy Kessler RN) 1-4 mL (1-4 spray), Mouth/Throat, ONCE, On Tue02/06/14 at 0930, For 1 dose, When verbally ordered by the prescriber. Hope throat with 1-4 sprays 5 minutes prior [...] (Not Gi isael - Provider: Lynne Gatica [facility] - Reason: Other - Comment: Dose [...] draw. documented in this encounter Care Teams Office Nurse Practitioner Relationship Specialty Start Date End Date Momo Forbes PCP - General Family Practice 01/02/14 [place] [id number] Ingrid Santana, RN Registered Nurse Transplant 02/10/12 documented as of this encounter
--- OUTSIDE RECORDS SUMMARY | 2022-05-28 11:27 | XMS_ITS | Encounter Summary ---
:1950 Author Organization [place] Address [address] [place] [address] Care Team Providers Name Role Phone Toña Jones MD Primary Care Provider Ingrid Santana RN Unavailable Unavailable Encounter Details Date Type Department Care Team Description 02/28/2013 Orders Only [facility] Molly Sanderson Organ transplant 500 [facility] candidate (Primary Dx) [place] [phone] Social History Tobacco Use Types Packs/Day Years [...] status documented in this encounter Care Teams Vessel Specialist Relationship Specialty Start Date End Date Toña Jones MD PCP - General Nephrology 11/25/11 01/01/14 Ingrid Santana RN Registered Nurse Transplant 02/10/12 documented as of this encounter
--- OUTSIDE RECORDS SUMMARY | 2022-05-28 11:27 | XMS_ITS | Encounter Summary ---
:1950 Author Organization [place] Address [facility] [place] [address] Care Team Providers Name Role Phone Toña [...] Ump Sot Surgery 2nd Floor, Clinic [address]A [address] [phone] Referral ID Status Reason Start Date Expiration Date Visits Requ ested Visits Authorized [id number] Closed 12/10/2013 06/08/2014 1 1 Consultation - Closed Specialty Diagnoses / Procedures Referred By Contact Refer red To Contact Diagnoses Organ transplant candidate ESRD (end stage renal disease) on dialysis (H) DM (diabetes mellitus), type 2 (H) Zz Ump Sot Surgery 2nd Floor, [facility] [facility] [address] [phone] Referral ID Status Reason Start Date Expiration Date Visits Requ ested Visits Authorized [id number] Closed 12/10/2013 06/08/2014 1 1 Encounter Details Date Type Department Care Team Description 12/07/2013 Orders Only Transplant Surgery Nazia March LPN Organ transplant candidate (Primary Dx); Clinic Screening for other and unsp ecified cardiovascular conditions; 2nd Floor, Clinic 2A ESRD (end stage renal diseas e) on dialysis (H); Tommy Wilburn DM (madeleine betes mellitus), type 2 (H) [address] [phone] Social History Tobacco Use Types [...] uncontrolled documented in this encounter Care Teams Child Care Development Specialist Relationship Specialty Start Date End Date Toña Jones MD PCP - General Nephrology 11/25/11 01/01/14 Ingrid Santana RN Registered Nurse Transplant 02/10/12 documented as of this encounter
--- OUTSIDE RECORDS SUMMARY | 2022-05-28 11:27 | XMS_ITS | Encounter Summary ---
:1950 Author Organization [place] Address [address] [place] [address] Care Team Providers Name Role Phone Ingrid Santana RN Unavailable Unavailable Momo Forbes Primary Care Provider Encounter Details Date Type Department Care Team Description 01/21/2014 Results Only LABORATORY RESULTS Mingo Dangelo MD [address] [facility] SE [facility] 195 [place] [address] (Wo rk) Social History Tobacco [...] HLA Lukasz Class I Single Antigen (01/21/2014) [facility] gist Method Time Signature SA1 Test SA [...] Phon e Number [facility] Immunology/Histocompatabil [place], [place] [address] ity [facility] [address] Building, Room 3-580 HISTOTRAC documented in this encounter Visit Diagnoses Not on filedocumented in this encounter Care Teams Retrofit Installer Relationship Specialty Start Date End Date Momo Forbes PCP - General Family Practice 01/02/14 [facility] [address] [place] [address] Ingrid Santana, RN Registered Nurse Transplant 02/10/12 documented as of this encounter
--- OUTSIDE RECORDS SUMMARY | 2022-05-28 11:27 | XMS_ITS | Encounter Summary ---
:1950 Author Organization [place] Address [address] [place] [address] Care Team Providers Name Role Phone Toña Jones MD Primary Care Provider Ingrid Santana RN Unavailable Unavailable Encounter Details Date Type Department Care Team Description 04/13/2012 Results Only LABORATORY RESULTS Mingo Dangelo MD 420 [facility] 195 [place] [address] (Wo rk) Social History Tobacco [...] HLA Lukasz Class I Single Antigen (04/13/2012) [facility] gist Method Time Signature SA1 Test Single [...] Phon e Number [facility] Immunology/Histocompatabil [place], [place] [address] ity [facility] [address] Building, Room 3-580 HISTOTRAC documented in this encounter Visit Diagnoses Not on filedocumented in this encounter Care Teams Metal Model Maker Relationship Specialty Start Date End Date Toña Jones MD PCP - General Nephrology 11/25/11 01/01/14 Ingrid Santana RN Registered Nurse Transplant 02/10/12 documented as of this encounter
--- OUTSIDE RECORDS SUMMARY | 2022-05-28 11:27 | XMS_ITS | Encounter Summary ---
:1950 Author Organization [place] Address [facility]0 [place] [address] Care Team Providers Name Role Phone Ingrid Santana RN Unavailable Unavailable Momo Forbes Primary Care Provider Reason for Visit Reason Onset Date Comments Pre Visit Planning - Done 01/30/2014 EKG: pre op: [age] yo M, here for continued clearance for possib le kidney txp. Encounter Details Date Type Department Care Team Description 01/30/2014 PRE VISIT [facility] Barbara Bradley Pre Visit Planning - Physicians Orestes Licona MD Done (EKG: pre op: 63 [address] [place], [place] [address] continued clearance 4th Floor, Clinic 4B for possible kidney [facility] [address] txp.) [address] [place] [phone] Social History Tobacco Use Types Packs/Day Years [...] On HD since Aug 2011. No past [place], stress tests or coronary angiogorams. No chest [...] disease documented in this encounter Care Teams Practice Architect Relationship Specialty Start Date End Date Momo Forbes PCP - General Family Practice 01/02/14 [facility] [address] [place] [address] Ingrid Santana, RN Registered Nurse Transplant 02/10/12 documented as of this encounter
--- OUTSIDE RECORDS SUMMARY | 2022-05-28 11:27 | XMS_ITS | Encounter Summary ---
:1950 Author Organization [place] Address [address] [place] [address] Care Team Providers Name Role Phone Toña Jones MD Primary Care Provider Ingrid Santana RN Unavailable Unavailable Encounter Details Date Type Department Care Team Description 07/30/2013 Results Only LABORATORY RESULTS Mingo Dangelo MD 420 [facility] 195 [place] [address] (Wo rk) Social History Tobacco [...] HLA Lukasz Class I Single Antigen (07/30/2013) [facility] gist Method Time Signature SA1 Test [...] / Volume Laterality 07/30/2013 07/31/2013 2:10 PM CLAIM AGENT Mingo Dangelo MD LAB - IMMUNOLOGY ORDERABLES Performing Organization Address City/State/ZIP Code Phon e Number [facility] Immunology/Histocompatabil [place], [place] [address] ity [facility] [address] Building, Room 3-580 HISTOTRAC documented in this encounter Visit Diagnoses Not on filedocumented in this encounter Care Teams Payroll Secretary Relationship Specialty Start Date End Date Toña Jones MD PCP - General Nephrology 11/25/11 01/01/14 Ingrid Santana RN Registered Nurse Transplant 02/10/12 documented as of this encounter
--- OUTSIDE RECORDS SUMMARY | 2022-05-28 11:27 | XMS_ITS | Encounter Summary ---
:1950 Author Organization [place] Address [facility]0 [facility] [place] [address] Care Team Providers Name Role Phone Toña [...] DM (madeleine betes mellitus), type 2 (H) [address] [phone] Social History Tobacco Use [...] uncontrolled documented in this encounter Care Teams Squirrel Man Relationship Specialty Start Date End Date Toña Jones MD PCP - General Nephrology 11/25/11 01/01/14 Ingrid Santana, RN Registered Nurse Transplant 02/10/12 documented as of this encounter
--- OUTSIDE RECORDS SUMMARY | 2022-05-28 11:27 | XMS_ITS | Encounter Summary ---
:1950 Author Organization [place] Address [address] [place] [address]. [place] [address] Care Team Providers Name Role Phone Toña [...] Associated Diagnosis Comme nts PATHOLOGY RESULT - [facility] 03/17/2012 8:24 AM CDT SCAN - ARCHIVE [...] on filedocumented in this encounter Care Teams Sausage Smoker Relationship Specialty Start Date End Date Toña Jones MD PCP - General Nephrology 11/25/11 01/01/14 Momo Forbes PCP - General Family Practice 01/02/14 [facility] [address] [place] [address] Ingrid Santana, RN Registered Nurse Transplant 02/10/12 documented as of this encounter
--- OUTSIDE RECORDS SUMMARY | 2022-05-28 11:27 | XMS_ITS | Encounter Summary ---
:1950 Author Organization [place] Address [address] [place] [address] Care Team Providers Name Role Phone Toña [...] HLA Lukasz Class I Single Antigen (04/16/2013) [facility] gist Method Time Signature SA1 Test [...] Phon e Number [facility] Immunology/Histocompatabil [place], [place] [address] ity [facility] 500 [facility] [address] Building, Room 3-580 HISTOTRAC documented in this encounter Visit Diagnoses Not on filedocumented in this encounter Care Teams Volunteer Services Specialist Relationship Specialty Start Date End Date Toña Jones MD PCP - General Nephrology 11/25/11 01/01/14 Ingrid Santana RN Registered Nurse Transplant 02/10/12 documented as of this encounter
--- OUTSIDE RECORDS SUMMARY | 2022-05-28 11:27 | XMS_ITS | Encounter Summary ---
:1950 Author Organization [place] Address [address] [place] [address] Care Team Providers Name Role Phone Toña Jones MD Primary Care Provider Ingrid Santana RN Unavailable Unavailable Encounter Details Date Type Department Care Team Description 01/17/2013 Results Only LABORATORY RESULTS Barbara Bradley MD [address] [place], [place] [address] Social History Tobacco Use [...] HLA Lukasz Class II Single Antigen (01/17/2013) [facility] Method Time Signature SA2 Test Single Antigen [...] Phon e Number [facility] Immunology/Histocompatabil [place], [place] [address] [facility] 500 [facility] [address] Building, Room 3-580 HISTOTRAC documented in this encounter Visit Diagnoses Not on filedocumented in this encounter Care Teams Merchandise Processor Relationship Specialty Start Date End Date Toña Jones MD PCP - General Nephrology 11/25/11 01/01/14 Ingrid Santana RN Registered Nurse Transplant 02/10/12 documented as of this encounter
--- OUTSIDE RECORDS SUMMARY | 2022-05-28 11:27 | XMS_ITS | Encounter Summary ---
:1950 Author Organization [place] Address [address] [place] [address] Care Team Providers Name Role Phone Ingrid Santana RN Unavailable Unavailable Momo Forbes Primary Care Provider Encounter Details Date Type Department Care Team Description 01/20/2014 Orders Only [facility], [facility], [facility] [address] [phone] [place] [address] 120 [place] [address] (Wo rk) Social History [...] Results Tacrolimus level (02/15/2014 8:55 AM CDT) [facility] Method Time Signature Tacrolimus Last 02/14/2014 [facility] Dose 2030 [facility] LABS Tacrolimus 5.9 5.0 - [facility] Level 15.0 ug/L [place] [...] Phon e Number [facility] 500 [place] [address] [facility] documented in this encounter Visit Diagnoses Not on filedocumented in this encounter Care Teams Commercial Insulator Relationship Specialty Start Date End Date Momo Forbes PCP - General Family Practice 01/02/14 [facility] 1999 [place] [address] Ingrid Santana, RN Registered Nurse Transplant 02/10/12 documented as of this encounter
--- OUTSIDE RECORDS SUMMARY | 2022-05-28 11:27 | XMS_ITS | Encounter Summary ---
:1950 Author Organization [place] Address [address] [place] [address]. [place] [address] Care Team Providers Name Role Phone Toña [...] - HIM SCAN - 09/25/2012 8:26 AM AFTER SCHOOL DRIVER ARCHIVE documented in this encounter Results LAB RESULT - HIM SCAN - ARCHIVE (09/25/2012 8:26 AM AFTER SCHOOL DRIVER) Specimen (Source) Anatomical Location Collection Method / Collectio n Time Received Time / Laterality Volume Narrative This result has an attachment that is no t available. Marcela Cordero MD LAB - BLOOD ORDERABLES documented in this encounter Visit Diagnoses Not on filedocumented in this encounter Care Teams Welder Repair Relationship Specialty Start Date End Date Toña Jones MD PCP - General Nephrology 11/25/11 01/01/14 Momo Forbes PCP - General Family Practice 01/02/14 [facility] [address] [place] [address] Ingrid Santana, RN Registered Nurse Transplant 02/10/12 documented as of this encounter
--- OUTSIDE RECORDS SUMMARY | 2022-05-28 11:27 | XMS_ITS | Encounter Summary ---
:1950 Author Organization [place] Address [address] [place] [address]. [place] [address] Care Team Providers Name Role Phone Toña [...] on filedocumented in this encounter Care Teams Photographic Aide Relationship Specialty Start Date End Date Toña Jones MD PCP - General Nephrology 11/25/11 01/01/14 Momo Forbes PCP - General Family Practice 01/02/14 [facility] [address] [place] [address] Ingrid Santana, RN Registered Nurse Transplant 02/10/12 documented as of this encounter
--- OUTSIDE RECORDS SUMMARY | 2022-05-28 11:27 | XMS_ITS | Encounter Summary ---
:1950 Author Organization [place] Address [facility] [place] [address] Care Team Providers Name Role Phone Toña Jones MD Primary Care Provider Ingrid Santana RN Unavailable Unavailable Encounter Details Date Type Department Care Team Description 07/03/2012 Results Only LABORATORY RESULTS Barbara Bradley MD [address] [place], [place] [address] Social History Tobacco Use [...] in this encounter Results Virtual Crossmatch (07/03/2012) [facility] Method Time Signature Crossmatch Donor:[id number] FigueredoABRAHAM ? Crossmatch Date:07/24/2012 HISTOTRAC Result (Note) Serum Date ??Test ?Result ? Donor Specific Antibody ?Comments 07/03/2012 ??Class I/Virtxm1 ? DSA ?None ? 07/03/2012 ??Class II/Virtxm 1 ?DSA ?None ? Specimen (Source) Anatomical Collection Method Collection Time Re ceived Time Location / / Volume Laterality 07/03/2012 07/05/2012 1:57 PM CLINICAL PSYCHOLOGIST LICENSED Barbara Bradley MD LAB - IMMUNOLOGY ORDERABLES Performing Organization Address City/State/ZIP Code Phon e Number [facility] Immunology/Histocompatabil [place], [place] [address] [facility] [address] Building, Room 3-580 HISTOTRAC documented in this encounter Visit Diagnoses Not on filedocumented in this encounter Care Teams Vascular Technician Relationship Specialty Start Date End Date Toña Jones MD PCP - General Nephrology 11/25/11 01/01/14 Ingrid Santana RN Registered Nurse Transplant 02/10/12 documented as of this encounter
--- OUTSIDE RECORDS SUMMARY | 2022-05-28 11:27 | XMS_ITS | Encounter Summary ---
:1950 Author Organization [place] Address [facility] [place] [address] Care Team Providers Name Role Phone Ingrid Santana RN Unavailable Unavailable Momo Forbes Primary Care Provider Encounter Details Date Type Department Care Team Description 01/21/2014 Results Only LABORATORY RESULTS Mingo Dangelo MD 420 [facility] 195 [place] [address] (Wo rk) Social History Tobacco [...] Results HLA Flow T/B Crossmatch Allo (01/21/2014) [facility] Method Time Signature Crossmatch Donor:[id number], ?Crossmatch Date:02/02/2014 HISTOTRAC Result (Note) Serum Date [...] Phon e Number [facility] Immunology/Histocompatabil [place], [place] [address] ity [facility] [address] Building, Room 3-580 HISTOTRAC documented in this encounter Visit Diagnoses Not on filedocumented in this encounter Care Teams Cloth Printing Inspector Relationship Specialty Start Date End Date Momo Forbes PCP - General Family Practice 01/02/14 [facility] [address] [place] [address] Ingrid Santana, RN Registered Nurse Transplant 02/10/12 documented as of this encounter
--- OUTSIDE RECORDS SUMMARY | 2022-05-28 11:27 | XMS_ITS | Encounter Summary ---
:1950 Author Organization [place] Address [address] [place] [address]. [place] [address] Care Team Providers Name Role Phone Toña [...] on filedocumented in this encounter Care Teams Childcare Aide Relationship Specialty Start Date End Date Toña Jones MD PCP - General Nephrology 11/25/11 01/01/14 Momo Forbes PCP - General Family Practice 01/02/14 [facility] [address] [place] [address] Ingrid Santana, RN Registered Nurse Transplant 02/10/12 documented as of this encounter
--- OUTSIDE RECORDS SUMMARY | 2022-05-28 11:27 | XMS_ITS | Encounter Summary ---
:1950 Author Organization [place] Address [address] [place] [address] Care Team Providers Name Role Phone Toña Jones MD Primary Care Provider Ingrid Santana RN Unavailable Unavailable Encounter Details Date Type Department Care Team Description 10/11/2012 Results Only LABORATORY RESULTS Barbara Bradley MD [address] [place], [place] [address] Social History Tobacco Use [...] HLA Lukasz Class II Single Antigen (10/11/2012) [facility] Method Time Signature SA2 Test [...] / Volume Laterality 10/11/2012 10/12/2012 1:03 PM MINING TECHNICIAN Barbara Bradley MD LAB - IMMUNOLOGY ORDERABLES Performing Organization Address City/State/ZIP Code Phon e Number [facility] Immunology/Histocompatabil [place], [place] [address] ity [facility] [address] Building, Room 3-580 HISTOTRAC documented in this encounter Visit Diagnoses Not on filedocumented in this encounter Care Teams Duplicate Maker Relationship Specialty Start Date End Date Toña Jones MD PCP - General Nephrology 11/25/11 01/01/14 Ingrid Santana RN Registered Nurse Transplant 02/10/12 documented as of this encounter
--- OUTSIDE RECORDS SUMMARY | 2022-05-28 11:27 | XMS_ITS | Encounter Summary ---
:1950 Author Organization [place] Address [address] [place] [address] Care Team Providers Name Role Phone Toña Jones MD Primary Care Provider Ingrid Santana RN Unavailable Unavailable Encounter Details Date Type Department Care Team Description 04/13/2012 Results Only LABORATORY RESULTS Mingo Dangelo MD 420 [facility] 195 [place] [address] (Wo rk) Social History Tobacco [...] HLA Lukasz Class II Single Antigen (04/13/2012) [facility] gist Method Time Signature SA2 Test [...] Phon e Number [facility] Immunology/Histocompatabil [place], [place] [address] ity [facility] 500 [facility] [address] Building, Room 3-580 HISTOTRAC documented in this encounter Visit Diagnoses Not on filedocumented in this encounter Care Teams Straightedge Machine Operator Helper Relationship Specialty Start Date End Date Toña Jones MD PCP - General Nephrology 11/25/11 01/01/14 Ingrid Santana RN Registered Nurse Transplant 02/10/12 documented as of this encounter
--- OUTSIDE RECORDS SUMMARY | 2022-05-28 11:27 | XMS_ITS | Encounter Summary ---
:1950 Author Organization [place] Address [facility] [place] [address] Care Team Providers Name Role Phone Toña [...] II Single Antigen (04/16/2013) [facility] Method Time Signature SA2 [...] Phon e Number [facility] Immunology/Histocompatabil [place], [place] [address] ity [facility] 500 [facility] [address] Building, Room 3-580 HISTOTRAC documented in this encounter Visit Diagnoses Not on filedocumented in this encounter Care Teams Fruit Harvest Worker Relationship Specialty Start Date End Date Toña Jones MD PCP - General Nephrology 11/25/11 01/01/14 Ingrid Santana, RN Registered Nurse Transplant 02/10/12 documented as of this encounter
--- OUTSIDE RECORDS SUMMARY | 2022-05-28 11:27 | XMS_ITS | Encounter Summary ---
:1950 Author Organization [place] Address [facility] [place] [address] Care Team Providers Name Role Phone Toña Jones MD Primary Care Provider Ingrid Santana RN Unavailable Unavailable Reason for Visit Reason Onset Date Comments Transplant 12/19/2013 Kidney waitlist appo intments Encounter Details Date Type Department Care Team Description 12/19/2013 Telephone The Transplant Edda low Abstract, Provider Transplant (Kidney 2nd Floor, Clinic 2A waitlist appointments) Tommy Ruiz[address] [phone] Social History Tobacco Use Types Packs/Day Years [...] on filedocumented in this encounter Care Teams Drain Tile Press Operator Relationship Specialty Start Date End Date Toña Jones MD PCP - General Nephrology 11/25/11 01/01/14 Ingrid Santana, RN Registered Nurse Transplant 02/10/12 documented as of this encounter
--- OUTSIDE RECORDS SUMMARY | 2022-05-28 11:27 | XMS_ITS | Encounter Summary ---
:1950 Author Organization [place] Address [address] [place] [address] Care Team Providers Name Role Phone Toña Jones MD Primary Care Provider Ingrid Santana RN Unavailable Unavailable Encounter Details Date Type Department Care Team Description 10/11/2012 Results Only LABORATORY RESULTS Barbara Bradley MD [address] [place], [place] [address] Social History Tobacco Use [...] HLA Lukasz Class I Single Antigen (10/11/2012) [facility] Method Time Signature SA1 Test Single Antigen [...] / Volume Laterality 10/11/2012 10/12/2012 1:03 PM STEM SIZER Barbara Bradley MD LAB - IMMUNOLOGY ORDERABLES Performing Organization Address City/State/ZIP Code Phon e Number [facility] Immunology/Histocompatabil [place], [place] [address] ity [facility] C[facility] [address] [facility] [address], Room 3-580 HISTOTRAC documented in this encounter Visit Diagnoses Not on filedocumented in this encounter Care Teams Algology Teacher Relationship Specialty Start Date End Date Toña Jones MD PCP - General Nephrology 11/25/11 01/01/14 Ingrid Santana RN Registered Nurse Transplant 02/10/12 documented as of this encounter
--- OUTSIDE RECORDS SUMMARY | 2022-05-28 11:27 | XMS_ITS | Encounter Summary ---
:1950 Author Organization [place] Address [address] [place] [address] Care Team Providers Name Role Phone Ingrid Santana RN Unavailable Unavailable Momo Forbes Primary Care Provider Encounter Details Date Type Department Care Team Description 01/21/2014 Results Only LABORATORY RESULTS Mingo Dangelo MD [address] [facility] [address] [place] [address] (Wo rk) Social History Tobacco [...] Class II Single Antigen (01/21/2014) [facility] gist Method Time Signature SA2 Test [...] Phon e Number [facility] Immunology/Histocompatabil [place], [place] [address] ity [facility] C[facility] [address] [facility] [address], Room [address]-580 HISTOTRAC documented in this encounter Visit Diagnoses Not on filedocumented in this encounter Care Teams Director Of Residential Services Relationship Specialty Start Date End Date Momo Forbes PCP - General Family Practice 01/02/14 [facility] [address] [place], [place] [id number] Ingrid Santana, RN Registered Nurse Transplant 02/10/12 documented as of this encounter
--- OUTSIDE RECORDS SUMMARY | 2022-05-28 11:27 | XMS_ITS | Encounter Summary ---
:1950 Author Organization [place] Address [address] [place] [address]. [place] [address] Care Team Providers Name Role Phone Toña [...] on filedocumented in this encounter Care Teams Wool Washing Machine Operator Relationship Specialty Start Date End Date Toña Jones MD PCP - General Nephrology 11/25/11 01/01/14 Momo Forbes PCP - General Family Practice 01/02/14 [facility] [address] [place] [address] Ingrid Santana, RN Registered Nurse Transplant 02/10/12 documented as of this encounter
--- OUTSIDE RECORDS SUMMARY | 2022-05-28 11:27 | XMS_ITS | Encounter Summary ---
:1950 Author Organization [place] Address [address] [place] [address] Care Team Providers Name Role Phone Toña Jones MD Primary Care Provider Ingrid Santana RN Unavailable Unavailable Encounter Details Date Type Department Care Team Description 11/05/2013 Results Only LABORATORY RESULTS Barbara Bradley MD [address] [place], [place] [address] Social History Tobacco Use [...] I Single Antigen (11/05/2013 7:20 AM CDT) [facility] Method Time Signature SA1 Test [...] Phon e Number [facility] Immunology/Histocompatabil [place], [place] [address] ity [facility] [address] [facility] [address] Building, Room 3-580 HISTOTRAC documented in this encounter Visit Diagnoses Not on filedocumented in this encounter Care Teams Beam Racker Relationship Specialty Start Date End Date Toña Jones MD PCP - General Nephrology 11/25/11 01/01/14 Ingrid Santana, RN Registered Nurse Transplant 02/10/12 documented as of this encounter
--- OUTSIDE RECORDS SUMMARY | 2022-05-28 11:27 | XMS_ITS | Encounter Summary ---
:1950 Author Organization [place] Address [facility] [place] [address] Care Team Providers Name Role Phone Toña Jones MD Primary Care Provider Ingrid Santana RN Unavailable Unavailable Encounter Details Date Type Department Care Team Description 08/25/2012 Results Only LABORATORY RESULTS Barbara Bradley MD [address] [place], [place] [address] Social History Tobacco Use [...] AM Results f or this CROSSMATCH ALLO EMT INTERMEDIATE procedure ar e in the results section. documented in this encounter Results HLA Flow T/B Crossmatch Allo (08/25/2012 9:49 AM EMT INTERMEDIATE) [facility] Method Time Signature Crossmatch Donor:ABRAHAM HICKEY [...] Volume Laterality 08/25/2012 9:49 AM 3 9:06 EMT INTERMEDIATE AM EMT INTERMEDIATE Barbara Bradley MD LAB - IMMUNOLOGY ORDERABLES Performing Organization Address City/State/ZIP Code Phon e Number [facility] Immunology/Histocompatabil [place], [place] [address] ity [facility] C[facility] [address] [facility] [address] Building, Room 3-580 HISTOTRAC documented in this encounter Visit Diagnoses Not on filedocumented in this encounter Care Teams Inside Trucker Relationship Specialty Start Date End Date Toña Jones MD PCP - General Nephrology 11/25/11 01/01/14 Ingrid Santana, BOGDAN Registered Nurse Transplant 02/10/12 documented as of this encounter
--- OUTSIDE RECORDS SUMMARY | 2022-05-28 11:27 | XMS_ITS | Encounter Summary ---
:1950 Author Organization [place] Address [address] [place] [address] Care Team Providers Name Role Phone Toña Jones MD Primary Care Provider Ingrid Santana RN Unavailable Unavailable Encounter Details Date Type Department Care Team Description 01/17/2013 Results Only LABORATORY RESULTS Barbara Bradley MD [address] [place], [place] [address] Social History Tobacco Use [...] HLA Lukasz Class I Single Antigen (01/17/2013) [facility] Method Time Signature SA1 Test Single [...] Phon e Number [facility] Immunology/Histocompatabil [place], [place] [address] ity [facility] [address] [facility] [address] Building, Room 3-580 HISTOTRAC documented in this encounter Visit Diagnoses Not on filedocumented in this encounter Care Teams Aged Or Disabled Care Worker Relationship Specialty Start Date End Date Toña Jones MD PCP - General Nephrology 11/25/11 01/01/14 Ingrid Santana RN Registered Nurse Transplant 02/10/12 documented as of this encounter
--- OUTSIDE RECORDS SUMMARY | 2022-05-28 11:27 | XMS_ITS | Encounter Summary ---
:1950 Author Organization [place] Address [address] [place] [address] Care Team Providers Name Role Phone Toña Jones MD Primary Care Provider Ingrid Santana RN Unavailable Unavailable Encounter Details Date Type Department Care Team Description 07/03/2012 Results Only LABORATORY RESULTS Barbara Bradley MD [address] [place], [place] [address] Social History Tobacco Use [...] HLA Lukasz Class II Single Antigen (07/03/2012) [facility] Method Time Signature SA2 [...] / Volume Laterality 07/03/2012 07/05/2012 1:57 PM VP ANALYTICS Barbara Bradley MD LAB - IMMUNOLOGY ORDERABLES Performing Organization Address City/State/ZIP Code Phon e Number [facility] Immunology/Histocompatabil [place], [place] [address] ity [facility] Med Ctr [address], Room [address]-580 HISTOTRAC documented in this encounter Visit Diagnoses Not on filedocumented in this encounter Care Teams Hunter Relationship Specialty Start Date End Date Toña Jones MD PCP - General Nephrology 11/25/11 01/01/14 Ingrid Santana RN Registered Nurse Transplant 02/10/12 documented as of this encounter
--- OUTSIDE RECORDS SUMMARY | 2022-05-28 11:27 | XMS_ITS | Encounter Summary ---
:1950 Author Organization [place] Address [address] [place] [address] Care Team Providers Name Role Phone Toña Jones MD Primary Care Provider Ingrid Santana RN Unavailable Unavailable Encounter Details Date Type Department Care Team Description 07/30/2013 Results Only LABORATORY RESULTS Mingo Dangelo MD [address] [facility] [address] [place] [address] (Wo rk) Social History Tobacco [...] HLA Lukasz Class II Single Antigen (07/30/2013) [facility] gist Method Time Signature SA2 Test [...] / Volume Laterality 07/30/2013 07/31/2013 2:10 PM AVICULTURIST Mingo Dangelo MD LAB - IMMUNOLOGY ORDERABLES Performing Organization Address City/State/ZIP Code Phon e Number [facility] Immunology/Histocompatabil [place], [place] [address] ity [facility] [address] [facility] [address] Building, Room 3-580 HISTOTRAC documented in this encounter Visit Diagnoses Not on filedocumented in this encounter Care Teams Step Down Nurse Relationship Specialty Start Date End Date Toña Jones MD PCP - General Nephrology 11/25/11 01/01/14 Ingrid Santana RN Registered Nurse Transplant 02/10/12 documented as of this encounter
--- OUTSIDE RECORDS SUMMARY | 2022-05-28 11:27 | XMS_ITS | Encounter Summary ---
:1950 Author Organization [place] Address [address] [place] [address]. [place] [address] Care Team Providers Name Role Phone Toña Jones MD Primary Care Provider Ingrid Santana RN Unavailable Unavailable Momo Forbes Primary Care Provider Encounter Details Date Type Department Care Team Description 02/18/2012 [facility] 2[facility], Clinic [address] [phone] Social History Tobacco Use [...] filedocumented in this encounter Care Teams Gis Mapping Technician Relationship Specialty Start Date End Date Toña Jones MD PCP - General Nephrology 11/25/11 01/01/14 Momo Forbes PCP - General Family Practice 01/02/14 [facility] [address] [place] [address] Ingrid Santana, RN Registered Nurse Transplant 02/10/12 documented as of this encounter
--- OUTSIDE RECORDS SUMMARY | 2022-05-28 11:27 | XMS_ITS | Encounter Summary ---
:1950 Author Organization [place] Address [address] [place] [address]. [place] [address] Care Team Providers Name Role Phone Toña [...] on filedocumented in this encounter Care Teams Grounds Supervisor Relationship Specialty Start Date End Date Toña Jones MD PCP - General Nephrology 11/25/11 01/01/14 Momo Forbes PCP - General Family Practice 01/02/14 [facility] [address] [place] [address] Ingrid Santana, RN Registered Nurse Transplant 02/10/12 documented as of this encounter
--- OUTSIDE RECORDS SUMMARY | 2022-05-28 11:27 | XMS_ITS | Encounter Summary ---
:1950 Author Organization [place] Address [address] [place] [address] Care Team Providers Name Role Phone Toña Jones MD Primary Care Provider Ingrid Santana RN Unavailable Unavailable Encounter Details Date Type Department Care Team Description 11/05/2013 Results Only LABORATORY RESULTS Barbara Bradley MD [address] [place], [place] [address] Social History Tobacco Use [...] II Single Antigen (11/05/2013 7:20 AM CDT) [facility] Method Time Signature SA2 [...] Phon e Number [facility] Immunology/Histocompatabil [place], [place] [address] ity [facility] Med Ctr [address], Room 3-580 HISTOTRAC documented in this encounter Visit Diagnoses Not on filedocumented in this encounter Care Teams Compensation And Benefits Analyst Relationship Specialty Start Date End Date Toña Jones MD PCP - General Nephrology 11/25/11 01/01/14 Ingrid Santana RN Registered Nurse Transplant 02/10/12 documented as of this encounter
--- OUTSIDE RECORDS SUMMARY | 2022-05-28 11:27 | XMS_ITS | Encounter Summary ---
:1950 Author Organization [place] Address [address] [place] [address] Care Team Providers Name Role Phone Toña Jones MD Primary Care Provider Ingrid Santana RN Unavailable Unavailable Encounter Details Date Type Department Care Team Description 07/03/2012 Results Only LABORATORY RESULTS Barbara Bradley MD [address] [place], [place] [address] Social History Tobacco Use [...] HLA Lukasz Class I Single Antigen (07/03/2012) [facility] Method Time Signature SA1 Test Single [...] / Volume Laterality 07/03/2012 07/05/2012 1:57 PM WORKERS COMPENSATION CLAIMS EXAMINER Barbara Bradley MD LAB - IMMUNOLOGY ORDERABLES Performing Organization Address City/State/ZIP Code Phon e Number [facility] Immunology/Histocompatabil [place], [place] [address] ity [facility] C[facility] [address] [facility] [address] Building, Room 3-580 H[place]OTRAC documented in this encounter Visit Diagnoses Not on filedocumented in this encounter Care Teams Laboratory Monitor Relationship Specialty Start Date End Date Toña Jones MD PCP - General Nephrology 11/25/11 01/01/14 Ingrid Santana RN Registered Nurse Transplant 02/10/12 documented as of this encounter
--- OUTSIDE RECORDS SUMMARY | 2022-05-28 11:27 | XMS_ITS | Encounter Summary ---
:1950 Author Organization [place] Address [facility] [place] [address] Care Team Providers Name Role Phone Toña Jones MD Primary Care Provider Ingrid Santana RN Unavailable Unavailable Encounter Details Date Type Department Care Team Description 12/10/2013 Telephone Transplant Surgery C Nazia Bledsoe LPN 2nd Floor, Clinic [address] [place] [phone] Social History Tobacco Use Types Packs/Day [...]
--- OUTSIDE RECORDS SUMMARY | 2022-05-28 11:27 | XMS_ITS | Encounter Summary ---
:1950 Author Organization [place] Address [address] [place] [address]. [place] [address] Care Team Providers Name Role Phone Toña [...] in this encounter Care Teams Key Account Manager Relationship Specialty Start Date End Date Toña Jones MD PCP - General Nephrology 11/25/11 01/01/14 Momo Forbes PCP - General Family Practice 01/02/14 [facility] [address] [place] [address] Ingrid Santana, RN Registered Nurse Transplant 02/10/12 documented as of this encounter
--- OUTSIDE RECORDS SUMMARY | 2022-05-28 11:27 | XMS_ITS | Encounter Summary ---
:1950 Author Organization [place] Address On license of [facility] [place] [address] Care Team Providers Name Role Phone Ingrid Santana RN Unavailable Unavailable Momo Forbes Primary Care Provider Reason for Visit Reason Onset Date Comments Transplant 02/02/2014 Kidney Offer Encounter Details Date Type Department Care Team Description 02/02/2014 Telephone Transplant Surgery [facility]el[facility] Rosario Tran splant ([facility] RN Offer) 2nd Floor, Clinic [address] [phone] Social History Tobacco Use Types Packs/Day Years [...] filedocumented in this encounter Care Teams Legal Referee Relationship Specialty Start Date End Date Momo Forbes PCP - General Family Practice 01/02/[address] [address] Ingrid Santana, RN Registered Nurse Transplant 02/10/12 documented as of this encounter
--- OUTSIDE RECORDS SUMMARY | 2022-05-28 11:28 | XMS_ITS | Encounter Summary ---
:1950 Author Organization [place] Address [facility] 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 ??The [...] e Number [facility] [address] [place], [place] [phone] [place] [address] [facility] Antibody titer red cell (02/08/2012 7:26 AM CDT) [facility] Method Time Signature Antibody Titer Anti B [facility] titer IgM: [place] 4 Ig CAMPUS LABS Specimen Anatomical Collection Method Collection Time Receive d Time (Source) Location / / Volume Laterality Blood specimen 02/08/2012 7:26 AM 012 7:31 (specimen) CDT AM CDT Darian Joshi MD LAB - BLOOD BANK TEST ORDER Performing Organization Address City/State/ZIP Code Phon e Number [facility] [address] LABS Prostate spec antigen screen (02/08/2012 7:25 AM CDT) P athologist Signature PSA 0.44 0 - 4 ug/L [facility] Comment: PSA results are about [...] e Number [facility] [address] LABS Hemoglobin A1c (02/08/2012 7:25 AM CDT) P athologist Signature Hemoglobin A1C 5.3 4.3 - 6.0 [facility] % [place] [facility] Specimen Anatomical Collection Method Collection Time Receive d Time (Source) Location / / Volume Laterality Blood specimen 02/08/2012 7:25 AM 012 7:30 (specimen) CDT AM CDT Darian Joshi MD LAB - BLOOD ORDERABLES Performing Organization Address City/State/ZIP Code Phon e Number [facility] [address] [place], [place] [phone] [place] [address] LABS C-peptide (02/08/2012 7:25 AM CDT) athologist Signature C Peptide 5.3 0.9 - 6.9 [facility] ng/mL [place] LABS Specimen Anatomical Collection Method Collection Time Receive d Time (Source) Location / / Volume Laterality Blood specimen 02/08/2012 7:25 AM 012 7:30 (specimen) CDT AM CDT Darian Joshi MD LAB - BLOOD ORDERABLES Performing Organization Address City/State/ZIP Code Phon e Number [address] LABS Cardiolipin antibody IgG and IgM (02/08/2012 7:25 AM CDT) [facility] Method Time Signature Cardiolipin IgG <15.0 0 - 15.0 [facility] Shaye Interpretation: ??Negative GPL [facility] LABS Cardiolipin IgM <12.5 0 - 12.5 [facility] Shaye Interpretation: ??Negative [facility] LABS Specimen Anatomical Collection Method Collection Time Receive d Time (Source) Location / / Volume Laterality Blood specimen 02/08/2012 7:25 AM 012 7:30 (specimen) CDT AM CDT Darian Joshi MD LAB - BLOOD ORDERABLES Performing Organization Address City/State/ZIP Code Phon e Number [phone] [place] [address] LABS (ABNORMAL) Comprehensive metabolic panel (02/08/2012 7:25 AM CDT) [facility] Method Time Signature Sodium 143 133 - 144 [facility] mmol/L [facility]S Potassium 4.4 3.4 - 5.3 [facility] mmol/L [facility]S Chloride 106 94 - 109 [facility] mmol/L [facility] Carbon Dioxide 24 20 - 32 [facility] mmol/L [facility] Anion Gap 13 6 - 17 [facility] mmol/L [facility]S Glucose 126 (H) 60 - 99 [facility] mg/dL [facility]S Urea Nitrogen 32 (H) 7 - 30 [facility] mg/dL [facility] LABS Creatinine 5.46 (H) 0.66 - [facility] 1.25 [place] mg/dL CAMPUS LABS GFR Estimate 11 (L) >60 [facility] mL/min/1. [address] LABS GFR Estimate If 13 (L) >60 [facility] Black mL/min/1. [address] LABS Calcium 8.5 8.5 - [facility] 10.4 [facility] mg/dL [place] LABS Bilirubin Total 0.8 0.2 - 1.3 [facility] mg/dL [facility]S Albumin 3.8 3.3 - 4.9 [facility] g/dL [facility] Protein Total 6.8 6.8 - 8.8 [facility] g/dL [facility]S Alkaline 92 40 - 150 [facility] Phosphatase U/L [facility]S ALT 13 0 - 70 [facility] U/L [facility] AST 18 0 - 45 [facility] U/L [facility] Specimen Anatomical Collection Method Collection Time Receive d Time (Source) Location / / Volume Laterality Blood specimen 02/08/2012 7:25 AM 012 7:30 (specimen) CDT AM CDT Darian Joshi MD LAB - BLOOD ORDERABLES Performing Organization Address City/[facility]/ZIP Code Phon e Number [facility] [address] LABS Lipid Profile (02/08/2012 7:25 AM CDT) P athologist Signature Cholesterol 134 0 - 200 [facility] mg/dL [place] [facility] Comment: LDL Cholesterol is the primary guide to therapy. The NCEP recommends further evaluation of: patients with cholesterol greater than 200 mg/dL if additional risk facto rs are present, cholesterol greater than 240 mg/dL, triglycerides greater than 1 50 mg/dL, or HDL less than 40 mg/dL. Triglycerides 74 0 - 150 mg/dL [facility] LABS HDL Cholesterol 42 40 - 110 mg/dL [facility] LABS LDL Cholesterol Calculated 77 0 - 129 mg/dL [facility] LABS Comment: LDL Cholesterol is the primary guide to therapy: LDL-cholesterol goal in high risk patients is <100 mg/dL and in very high risk patients is <70 mg/dL. VLDL-Cholesterol 15 0 - 30 mg/dL [facility] LABS Cholesterol/HDL Ratio 3.2 0.0 - 5.0 [facility] Specimen Anatomical Collection Method Collection Time Receive d Time (Source) Location / / Volume Laterality Blood specimen 02/08/2012 7:25 AM 012 7:30 (specimen) CDT AM CDT Darian Joshi MD LAB - BLOOD ORDERABLES Performing Organization Address City/State/ZIP Code Phon e Number [facility] [address] [place] [address] [facility] LABS ABO/Rh type and screen (02/08/2012 7:25 AM CDT) Patholo gist Method Time Signature ABO A [facility] LABS RH(D) Pos [facility] Antibody Neg [facility] Screen [facility] Specimen 02/11/2012 [facility] Expires [facility] Specimen Anatomical Collection Method Collection Time Receive d Time (Source) Location / / Volume Laterality Blood specimen 02/08/2012 7:25 AM 012 7:30 (specimen) CDT AM CDT Darian Joshi MD LAB - BLOOD BANK TEST ORDER Performing Organization Address City/[facility]/ZIP Code Phon e Number [facility] [address] LABS Varicella zoster antibody IgG (02/08/2012 7:25 AM CDT) Patholo gist Method Time Signature Varicella 1023.00 [facility] Zoster IgG [facility] Immune Status CAMPUS LABS Ratio Vari Zoster Positive, [facility] IgG Interp suggests [place] prev. CAMPUS LABS exposure and probable immunity Specimen Anatomical Collection Method Collection Time Receive d Time (Source) Location / / Volume Laterality Blood specimen 02/08/2012 7:25 AM 012 7:30 (specimen) CDT AM CDT Darian Joshi MD LAB - BLOOD ORDERABLES Performing Organization Address City/[facility]/ZIP Code Phon e Number [facility] [address] LABS Anti treponema EIA (02/08/2012 7:25 AM CDT) Analysis Performed At Patho logist Time Signature Treponema Negative NEG [facility] Antibody [place] [facility] Specimen Anatomical Collection Method Collection Time Receive d Time (Source) Location / / Volume Laterality Blood specimen 02/08/2012 7:25 AM 012 7:30 (specimen) CDT AM CDT Darian Joshi MD LAB - BLOOD ORDERABLES Performing Organization Address City/[facility]/ZIP Code Phon e Number [facility] [address] [place], [place] [phone] [place] [address] LABS HIV 1 and 2 Antibody (02/08/2012 7:25 AM CDT) Analysis Performed At Patho logist Time Signature HIV 1&2 Negative NEG [facility] Antibody [facility] LABS Specimen Anatomical Collection Method Collection Time Receive d Time (Source) Location / / Volume Laterality Blood specimen 02/08/2012 7:25 AM 012 7:30 (specimen) CDT AM CDT Darian Joshi MD LAB - BLOOD ORDERABLES Performing Organization Address City/State/ZIP Code Phon e Number [facility] [address] [place], [place] [phone] [place] [address] LABS Hepatitis C antibody (02/08/2012 7:25 AM CDT) Analysis Performed At Patho logist Time Signature Hepatitis C Negative NEG [facility] Antibody [facility] LABS Specimen Anatomical Collection Method Collection Time Receive d Time (Source) Location / / Volume Laterality Blood specimen 02/08/2012 7:25 AM 012 7:30 (specimen) CDT AM CDT Darian Joshi MD LAB - BLOOD ORDERABLES Performing Organization Address City/State/ZIP Code Phon e Number [facility] [address] [place], [place] [phone] [place] [address] LABS Hepatitis B surface antigen (02/08/2012 7:25 AM CDT) Analysis [facility] Signature Hep B Surface Negative NEG [facility] Agn [facility] LABS Specimen Anatomical Collection Method Collection Time Receive d Time (Source) Location / / Volume Laterality Blood specimen 02/08/2012 7:25 AM 012 7:30 (specimen) CDT AM CDT Darian Joshi MD LAB - BLOOD ORDERABLES Performing Organization Address City/[facility]/ZIP Code Phon e Number [facility] [address] LABS Hepatitis B surface antibody (02/08/2012 7:25 AM CDT) P athologist Signature Hep B Surface 135.0 [facility] LABS Comment: Positive, Patient is [...] e Number [facility] [address] [place], [place] [phone] [place] [address] LABS Hepatitis B core antibody (02/08/2012 7:25 AM CDT) Analysis Performed At Patho logist Time Signature Hepatitis B Negative NEG [facility] Specimen Anatomical Collection Method Collection Time Receive d Time (Source) Location / / Volume Laterality Blood specimen 02/08/2012 7:25 AM 012 7:30 (specimen) CDT AM CDT Darian Joshi MD LAB - BLOOD ORDERABLES Performing Organization Address City/[facility]/ZIP Code Phon e Number [facility] [address] LABS EBV VCA IgG Antibody (02/08/2012 7:25 AM CDT) P athologist Signature EBV VCA IgG 188.00 U/mL [facility] LABS Comment: Positive, suggests immunologic exposure. Specimen Anatomical Collection Method Collection Time Receive d Time (Source) Location / / Volume Laterality Blood specimen 02/08/2012 7:25 AM 012 7:30 (specimen) CDT AM CDT Darian Joshi MD LAB - BLOOD ORDERABLES Performing Organization Address City/[facility]/ZIP Code Phon e Number [facility] [address] LABS CMV IGG ANTIBODY (02/08/2012 7:25 AM CDT) P athologist Signature CMV IgG 3.30 U/mL [facility] LABS Comment: Positive for anti-CMV IgG Specimen Anatomical Collection Method Collection Time Receive d Time (Source) Location / / Volume Laterality Blood specimen 02/08/2012 7:25 AM 012 7:30 (specimen) CDT AM CDT Darian Joshi MD LAB - BLOOD ORDERABLES Performing Organization Address City/[facility]/ZIP Code Phon e Number [facility] [address] LABS Immunology recipient: SOT HLA Workup (ABC,DR,DQ,PRA,Crossmatch) (02/08/2012 7:25 AM CDT) Patholo gist Method Time Signature Immunology SOT HLA WORKUP [facility] Test Name [facility] LABS Immunology Specimen [facility] Result received - [facility] LABS report to follow upon completion. Specimen Anatomical Collection Method Collection Time Receive d Time (Source) Location / / Volume Laterality Blood specimen 02/08/2012 7:25 AM 012 7:30 (specimen) CDT AM CDT Darian Joshi MD LAB - IMMUNOLOGY ORDERABLES Performing Organization Address City/State/ZIP Code Phon e Number [facility] [address] [place] [address] [facility] [place] [facility] (ABNORMAL) CBC with platelets differential (02/08/2012 7:25 AM CDT) [facility] gist Method Time Signature WBC 6.3 4.0 - [facility] 11.0 [facility] 10e9/L CAMPUS LABS RBC Count 3.97 (L) 4.4 - 5.9 [facility] 10e12/L [facility] LABS Hemoglobin 12.0 (L) 13.3 - [facility] 17.7 g/dL [facility] LABS Hematocrit 36.3 (L) 40.0 - [facility] 53.0 % [facility]S MCV 91 78 - 100 [facility] fl [facility] [place] [facility] MCH 30.2 26.5 - [facility] 33.0 pg [place] [facility] LABS MCHC 33.1 31.5 - [facility] 36.5 g/dL [facility] LABS RDW 15.3 (H) 10.0 - [facility] 15.0 % [facility] LABS Platelet Count 144 (L) 150 - 450 [facility] 10e9/L [facility]S Diff Method Automated [facility] Method [facility] LABS % Neutrophils 57.7 40 - 75 % [facility] LABS % Lymphocytes 27.7 20 - 48 % [facility] % Monocytes 8.2 0 - 12 % [facility] % Eosinophils 6.1 (H) 0 - 6 % [facility] % Basophils 0.3 0 - 2 % [facility] % Immature 0.0 0 - 0.4 % [facility] Granulocytes [facility] Absolute 3.6 1.6 - 8.3 [facility] Neutrophil 10e9/L [facility] LABS Absolute 1.7 0.8 - 5.3 [facility] Lymphocytes 10e9/L [facility] Absolute 0.5 0.0 - 1.3 [facility] Monocytes 10e9/L [facility] LABS Absolute 0.4 0.0 - 0.7 [facility] Eosinophils 10e9/L [facility] LABS Absolute 0.0 0.0 - 0.2 [facility] Basophils 10e9/L [facility] LABS Abs Immature 0.0 0 - 0.03 [facility] Granulocytes 10e9/L [facility] LABS Specimen Anatomical Collection Method Collection Time Receive d Time (Source) Location / / Volume Laterality Blood specimen 02/08/2012 7:25 AM 012 7:30 (specimen) CDT AM CDT Darian Joshi MD LAB - BLOOD ORDERABLES Performing Organization Address [facility]/ZIP Code Phon e Number [facility] [address] LABS Lupus panel (02/08/2012 7:25 AM CDT) Component Value Ref Test Analysis Performed At Patholo gist Range Method Time Signature Lupus Result Negative NEG [facility] (Note) [place] COMMENTS: [place] [facility] The INR is normal. APTT is normal. ??1:2 Mix is not indicated. DRVVT Screen is normal. Thrombin time is normal. NEGATIVE TEST; A LUPUS ANTICOAGULANT WAS NOT DETECTED IN THI S SPECIMEN WITHIN THE LIMITS OF THE TESTING REPERTOIRE. If the clinical picture is strongly suggestive of an antipho spholipid syndrome, recommend anticardiolipin and zlxa-6-gtlldrgphnkx (IgG and IgM) antibody tests. Dee Duenas M.D. ??[phone] 02-09-2012. APTT'S: ?? Seconds Reagent = Stago [...] Performing Organization Address City/[facility]/ZIP Code Phon e Number [facility] [address] [place], [place] [phone] [place] [address] LABS Thrombin time (02/08/2012 7:25 AM CDT) P athologist Signature Thrombin Time 16.7 13.0 - [facility] 19.0 sec CAMPUS LABS Specimen Anatomical Collection Method Collection Time Receive d Time (Source) Location / / Volume Laterality Blood specimen 02/08/2012 7:25 AM 012 7:30 (specimen) CDT AM CDT Darian Joshi MD LAB - BLOOD ORDERABLES Performing Organization Address City/[facility]/ZIP Code Phon e Number [facility] [address] LABS Partial thromboplastin time (02/08/2012 7:25 AM CDT) P athologist Signature PTT 29 22 - 37 sec [facility] LABS Specimen Anatomical Collection Method Collection Time Receive d Time (Source) Location / / Volume Laterality Blood specimen 02/08/2012 7:25 AM 012 7:30 (specimen) CDT AM CDT Darian Joshi MD LAB - BLOOD ORDERABLES Performing Organization Address City/[facility]/ZIP Code Phon e Number [facility] [address] LABS INR (02/08/2012 7:25 AM CDT) P athologist Signature INR 1.11 0.86 - 1.14 [facility] LABS Specimen Anatomical Collection Method Collection Time Receive d Time (Source) Location / / Volume Laterality Blood specimen 02/08/2012 7:25 AM 012 7:30 (specimen) CDT AM CDT Darian Joshi MD LAB - BLOOD ORDERABLES Performing Organization Address City/[facility]/ZIP Code Phon e Number [phone] [place] [address] LABS Factor 2 and 5 mutation analysis (02/08/2012 7:07 AM CDT) Component Value Ref Test Analysis Performed At [facility] Range Method Time Signature Copath Report Patient Name: ELINOR GUTHRIE MR#: [id number] Specimen #: [id number] Collected: 02/08/2012 07:07 Received: 02/08/2012 09:00 Reported: 02/11/2012 14:03 Ordering Phy(s): DARIAN JOSHI TEST(S) REQUESTED: A: Factor 5 Leiden and Factor 2 by PCR B: DNA Isolation, High purity extraction SPECIMEN DESCRIPTION: Blood METHODOLOGY: ?? The regions of genomic DNA containing the G1 691A Factor 5 gene mutation (Factor V Leiden) and the Factor 2(Prothrombin E28401H) gene mutation were simultaneously amplified using the polyme rase chain reaction. ??The amplified products were digested with restri ction endonuclease TaqI and products were analyzed by gel electrop horesis. RESULTS: FACTOR 5-LEIDEN RESULTS: Mutation analyzed: ? 1691G>A Factor 5 Mutation Interpretation: ?ABSENT Factor 5 Mutation genotype: ?G/G FACTOR 2/PROTHROMBIN RESULTS: Mutation analyzed: ? 22409W>A Factor 2 Mutation Interpretation: ?ABSENT Factor 2 Mutation genotype: ?G/G INTERPRETATION: The patient is negative for the Factor 5 mutation and negati ve for the Factor 2 mutation. This test was developed and its performance determined by kj de [facility] ??Molecular Diagnostic Laboratory. It has not [...] Liliya Stone MD TESTING LAB LOCATION: [address] [id number] COLLECTION SITE: Client: ??[facility] Location: ??UUTXO (B) Specimen Anatomical Collection [...] [facility] gist Range Method Time Signature Color Urine Light Yellow [facility] Appearance Urine Clear [facility] Glucose Urine 300 (A) NEG [facility] mg/dL [facility] LABS Bilirubin Urine Negative NEG [facility] Ketones Urine Negative NEG [facility] mg/dL [facility] [place] [facility] Specific [place] 1.010 1.003 - [facility] Urine 1.035 [facility] [place] [facility] Blood Urine Negative NEG [facility] pH Urine 7.5 (H) 5.0 - [facility] 7.0 pH [facility] LABS Protein Albumin 300 (A) NEG [facility] Urine mg/dL [facility] [place] [facility] Urobilinogen Normal 0.0 - [facility] mg/dL 2.0 [place] mg/dL CAMPUS LABS Nitrite Urine Negative NEG [facility] Leukocyte Negative NEG [facility] Esterase Urine [facility] [place] [facility] Source Unspecified [facility] Urine [facility] WBC Urine 1 0 - 2 [facility] /HPF [place] RBC Urine <1 0 - 2 [facility] /HPF [facility] LABS Hyaline Casts 3 (H) 0 - 2 [facility] /LPF [facility] LABS Specimen Anatomical Collection Method Collection Time Receive d Time (Source) Location / / Volume Laterality Urine specimen 02/08/2012 7:06 AM 012 7:08 (specimen) CDT AM CDT Darian Joshi MD LAB - URINE ORDERABLES Performing Organization Address City/State/ZIP Code Phon e Number [facility] [address] [facility] LABS documented in this encounter Visit Diagnoses Diagnosis Diabetes mellitus, type 2 (H) Type II or unspecified type diabetes aung litus without mention of complication, not stated as uncontrolled End stage renal disease (H) End stage renal disease documented in this encounter Care Teams Precision Dancer Relationship Specialty Start Date End Date Toña Jones MD PCP - General Nephrology 11/25/11 01/01/14 documented as of this encounter
--- OUTSIDE RECORDS SUMMARY | 2022-05-28 11:28 | XMS_ITS | Encounter Summary ---
:1950 Author Organization [place] Address [address] [place] [address] Care Team Providers Name Role Phone Toña Jones MD Primary Care Provider Ingrid Santana RN Unavailable Unavailable Reason for Visit (Routine) - Closed Specialty Diagnoses / Procedures Referred By Contact Refer red To Contact Cardiology Diagnoses NM STRESS LEXISCAN Procedure Notes: UNSPECIFIED ESSENTIAL HYPERTENSION,PREOPERATIVE EXAMINATION, UNSPECIFIED, Zz Uu Electrocard Procedures RADIOLOGY [address] [place] [address] Referral ID Status Reason Start Date Expiration Date Visits Requ ested Visits Authorized [id number] Closed 02/11/2012 02/10/2013 1 1 Encounter Details Date Type Department Care Team Description 02/15/2012 Hospital Encounter ZSarah UU ELECTROCARD Barbara Bradley [address] [facility] [address] [address] [place], [place] [address] Social History Tobacco Use [...] as needed Per patient on hold B kbtggnb-P-ckgxv acid Take 1 capsule by mouth 0 [...] Test documented in this encounter Care Teams Tonguer Relationship Specialty Start Date End Date Toña Jones MD PCP - General Nephrology 11/25/11 01/01/14 Ingrid Santana, RN Registered Nurse Transplant 02/10/12 documented as of this encounter
--- OUTSIDE RECORDS SUMMARY | 2022-05-28 11:28 | XMS_ITS | Encounter Summary ---
:1950 Author Organization [place] Address [address] [place] [address] Care Team Providers Name Role Phone Toña Jones MD Primary Care Provider Ingrid Santana RN Unavailable Unavailable Encounter Details Date Type Department Care Team Description 02/15/2012 Hospital Encounter [facility] BradleyBarbara Unsp ecified essential hypertension; [facility] Imaging MD Monae Pre-operative clearance [address] [place] [phone] Social History Tobacco Use Types Packs/Day [...] as needed Per patient on hold B tkzhglm-L-vtbuk acid Take 1 capsule by mouth 0 [...] unspecified documented in this encounter Care Teams Interactive Art Director Relationship Specialty Start Date End Date Toña Jones MD PCP - General Nephrology 11/25/11 01/01/14 Ingrid Santana, RN Registered Nurse Transplant 02/10/12 documented as of this encounter
--- OUTSIDE RECORDS SUMMARY | 2022-05-28 11:28 | XMS_ITS | Encounter Summary ---
:1950 Author Organization [place] Address [address] [place] [address] Care Team Providers Name Role Phone Toña Jones MD Primary Care Provider Ingrid Santana RN Unavailable Unavailable Reason for Visit (Routine) - Closed Specialty Diagnoses / Procedures Referred By Contact Refer red To Contact Radiology Diagnoses NM MPI L[place] Procedure Notes: UNSPECIFIED ESSENTIAL HYPERTENSION,PREOPERATIVE EXAMINATION, UNSPECIFIED, Uu Nuclear Medicine Procedures RADIOLOGY [address] [place] [address] Phone: Referral ID Status Reason Start Date Expiration Date Visits Requ ested Visits Authorized [id number] Closed 02/11/2012 02/10/2013 1 1 Encounter Details Date Type Department Care Team Description 02/15/2012 Hospital Encounter [facility] Barbara Bradley Imaging MD Monae [address] [facility] [address] [place], [place] [address] [phone] Social History Tobacco Use Types Packs/Day Years [...] as needed Per patient on hold B gvpfihl-N-gvqbg acid Take 1 capsule by mouth 0 02/08/2014 (NEPHROCAPS) 1 MG daily. capsule lisinopril Take 40 mg by mouth 0 02/08 (PRINIVIL,ZESTRIL) 40 daily MG tablet METOPROLOL SUCCINATE Take 100 mg by mouth 0 02/08/2014 PO daily documented as of this encounter Plan of Treatment Not on filedocumented as of this encounter Visit Diagnoses Not on filedocumented in this encounter Care Teams Offensive Coordinator Relationship Specialty Start Date End Date Toña Jones MD PCP - General Nephrology 11/25/11 01/01/14 Ingrid Santana, RN Registered Nurse Transplant 02/10/12 documented as of this encounter
--- OUTSIDE RECORDS SUMMARY | 2022-05-28 11:28 | XMS_ITS | Encounter Summary ---
:1950 Author Organization [place] Address [address] [place] [address] Care Team Providers Name Role Phone Toña Jones MD Primary Care Provider Reason for Visit (Routine) - Closed Specialty Diagnoses / Procedures Referred By Contact Refer red To Contact Cardiology Diagnoses ECHO CLINIC COMPLETE ADULT Procedure Notes: DIABETES MELLITUS, TYPE 2,END STAGE RENAL DISEASE,Transplant eval,Performing Location?->[facility] Echocardiography Procedures RADIOLOGY [address] [place] [address] Phone: Referral ID Status Reason Start Date Expiration Date Visits Requ ested Visits Authorized [id number] Closed 01/21/2012 01/20/2013 1 1 Encounter Details Date Type Department Care Team Description 02/08/2012 Hospital Encounter [facility], [place], Jeff Joshi MD [address] [facility] [address] [place] [address] Diabetes mellitus, type 2 (H); Echocardiography Rajat German MD [address] [facility] [address] [place] [address] End stage renal disease (H) [address] [place] [address] Social History Tobacco Use Types [...] 0 02/10/2012 10 MG tablet daily. B xlqqjzy-T-tanib acid Take 1 capsule by mouth 0 [...] (PWB) (02/08/2012 1:13 PM CDT) [facility] Method Time Signature XCELERA RADIOLOGY Interpretation [...] disease documented in this encounter Care Teams Veterinary Pharmacologist Relationship Specialty Start Date End Date Toña Jones MD PCP - General Nephrology 11/25/11 01/01/14 documented as of this encounter
--- OUTSIDE RECORDS SUMMARY | 2022-05-28 11:28 | XMS_ITS | Encounter Summary ---
:1950 Author Organization [place] Address [address] [place] [address]. [place] [address] Care Team Providers Name Role Phone Toña Jones MD Primary Care Provider Reason for Visit Reason Comments Transplant Evaluation Kidney transplant evaluation - Diabetes, End Stage Renal Disease Encounter Details Date Type Department Care Team Description 02/08/2012 Office Visit The Transplant Edda Cardenas, Ty Blink, DM (diabetes 2nd Floor, Clinic 2A MD mellitus), type 2 (H) Tommy Wilburn (Primar y Dx) [address] [phone] Social History Tobacco Use Types Packs/Day Years [...] (willing/able to accept information): Yes Any cultural factors/mosque beliefs that may influence understanding or compliance? [...] uncontrolled documented in this encounter Care Teams Sap Hana Architect Relationship Specialty Start Date End Date Toña Jones MD PCP - General Nephrology 11/25/11 01/01/14 documented as of this encounter
--- OUTSIDE RECORDS SUMMARY | 2022-05-28 11:28 | XMS_ITS | Encounter Summary ---
:1950 Author Organization [place] Address [address] [facility] [place] [address] Care Team Providers Name Role Phone Toña Jones MD Primary Care Provider Ingird Santana RN Unavailable Unavailable Encounter Details Date Type Department Care Team Description 02/10/2012 Orders Only [facility] Anita Joshi MD Diabetes mellitus, type 2 (H); Clinic Imaging [address] [facility] End stage renal disease (H) Dima-Wangensteen [address] [place] [address] 1st Floor, Clinic [address] [place] [address] [address] Social History Tobacco Use [...] disease documented in this encounter Care Teams Slackman Relationship Specialty Start Date End Date Toña Jones MD PCP - General Nephrology 11/25/11 01/01/14 Ingrid Santana, RN Registered Nurse Transplant 02/10/12 documented as of this encounter
--- OUTSIDE RECORDS SUMMARY | 2022-05-28 11:28 | XMS_ITS | Encounter Summary ---
:1950 Author Organization [place] Address [facility] [place] [address] Care Team Providers Name Role Phone Toña Jones MD Primary Care Provider Ingrid Santana RN Unavailable Unavailable Reason for Visit Reason Comments Social Work Services Encounter Details Date Type Department Care Team Description 02/10/2012 Office Visit The Transplant Akanksha Stacy Organ transplant 2nd Floor, Clinic 2A SHALOM Zacarias candidate (Primary [facility] Dx) [address] [address] Social History Tobacco Use Types Packs/Day Years [...] old Duration of Interview: 40 min Process: Ngsu-pz-Amih Interview (counseling < 50%) Present at Appointment: Latrell, his brother Kiran and Latrell Zamora, Transplant Financial Flight TechnicianRig Hand Worker: CECY Ortiz, [facility] Date: February 10, 2012 Type of transplant: Kidney Donor type: Latrell indicated that he does not know of any potential donors at this time. Cadaver Prior Transplants: No Status of Transplant: Current Living Situation Location: [address] [place] [phone] With Whom: Alone Family/ Social Support: Kiran lives in [place], [place]. Available, helpful Committed relationship: Latrell indicated [...] Income Savings Insurance Latrell has BC/BS through [employer] until 07/22/13. He has also applied for [...] that assist with fund raising. Discussed asking track worker for assistance with cobra premiums and [...] No Adequate Finances Yes Signature: CECY Ortiz, [facility] Title: Clinical Community Manager documented in this encounter Plan of Treatment Not on filedocumented as of this encounter Visit Diagnoses Diagnosis Organ transplant candidate - Primary Awaiting organ transplant status documented in this encounter Care Teams Revenue Manager Relationship Specialty Start Date End Date Toña Jones MD PCP - General Nephrology 11/25/11 01/01/14 Ingrid Santana RN Registered Nurse Transplant 02/10/12 documented as of this encounter
--- OUTSIDE RECORDS SUMMARY | 2022-05-28 11:28 | XMS_ITS | Encounter Summary ---
:1950 Author Organization [place] Address [address] [place] [address] Care Team Providers Name Role Phone Toña Jones MD Primary Care Provider Ingrid Santana RN Unavailable Unavailable Encounter Details Date Type Department Care Team Description 02/08/2012 Orders Only [facility] Jesus Cardenas Di abetes mellitus, type 2 (H); [facility] Gordo oneal MD End stage renal disease (H); [address] [place]AGNOSIS [place] [address] Social History Tobacco Use Types Packs/Day Years [...] Results ABO type (02/08/2012 1:52 PM CDT) [facility] Method Time Signature ABO A [facility] RH(D) Pos [facility] Specimen 02/11/2012 [facility] Expires [facility] Specimen Anatomical Collection Method Collection Time Receive d Time (Source) Location / / Volume Laterality Blood specimen 02/08/2012 1:52 PM 012 1:54 (specimen) CDT PM CDT Chucho Joshi MD LAB - BLOOD BANK TEST ORDER Performing Organization Address City/[facility]/ZIP Code Phon e Number [id number] [place] [address] LABS EKG 12-lead, tracing only (02/08/2012 7:30 AM CDT) [facility] Method Time Signature Ventricular Rate 60 BPM RADIOLOGY RESULTS Atrial Rate 60 BPM RADIOLOGY RESULTS NV Interval 186 ms RADIOLOGY RESULTS QRS Duration 104 ms RADIOLOGY RESULTS QT 440 ms RADIOLOGY RESULTS QTc 440 ms RADIOLOGY RESULTS P [place] 36 degrees RADIOLOGY RESULTS R AXIS 0 degrees RADIOLOGY RESULTS T [place] 36 degrees RADIOLOGY RESULTS Interpretation Sinus rhythm [...] DEFINED documented in this encounter Care Teams Compliance Mgr Relationship Specialty Start Date End Date Toña Jones MD PCP - General Nephrology 11/25/11 01/01/14 Ingrid Santana, RN Registered Nurse Transplant 02/10/12 documented as of this encounter
--- OUTSIDE RECORDS SUMMARY | 2022-05-28 11:28 | XMS_ITS | Encounter Summary ---
:1950 Author Organization [place] Address [address] [place] [address] Care Team Providers Name Role Phone Toña Jones MD Primary Care Provider Ingrid Santana RN Unavailable Unavailable Encounter Details Date Type Department Care Team Description 02/08/2012 Results Only LABORATORY RESULTS Jeff Joshi MD [address] [facility] [address] [place] [address] (Wo rk) Social History Tobacco [...] Phon e Number [facility]U HLA LABORATORY Immunology/Histocompatabil [place], [place] [address] ity [facility] [address] [facility] [address] Building, Room 3-580 HISTOTRAC documented in this encounter Visit Diagnoses Not on filedocumented in this encounter Care Teams Senior Software Manager Relationship Specialty Start Date End Date Toña Jones MD PCP - General Nephrology 11/25/11 01/01/14 Ingrid Santana RN Registered Nurse Transplant 02/10/12 documented as of this encounter
--- OUTSIDE RECORDS SUMMARY | 2022-05-28 11:28 | XMS_ITS | Encounter Summary ---
:1950 Author Organization [place] Address [address] [place] [address] Care Team Providers Name Role Phone Toña Jones MD Primary Care Provider Encounter Details Date Type Department Care Team Description 02/08/2012 Orders Only [facility] Thomas, Ty Blink, End sta ge kidney Pulmonary Function disease ( H) (Primary Laboratory Dx) 6th Floor [address] [place] [address] Social History Tobacco Use Types [...] Lab Testing (Generic) (02/08/2012 8:35 AM CDT) [facility] Method Time Signature Pulmonary COPATH Function Test Name: ? ELINOR GUTHRIE ? ID: ?[id number] Doctor: ?JESUS THOMAS ?Height: ?72.00 in ? [...] INTERPRETATION: The FVC, FEV1, FEV1/FVC ratio and SDA99-73% are within normal limits. ??The inspiratory flow [...] disease documented in this encounter Care Teams Insole Lip Turner Relationship Specialty Start Date End Date Toña Jones MD PCP - General Nephrology 11/25/11 01/01/14 documented as of this encounter
--- OUTSIDE RECORDS SUMMARY | 2022-05-28 11:28 | XMS_ITS | Encounter Summary ---
:1950 Author Organization [place] Address [facility] [place] [address] Care Team Providers Name Role Phone Toña Jones MD Primary Care Provider Ingrid Santana RN Unavailable Unavailable Reason for Visit Reason Comments Transplant Evaluation kidney Encounter Details Date Type Department Care Team Description 02/10/2012 Office Visit Nephrology Darian Joshi MD [address] [facility] 353 [place], [place] [phone] Pre-transplant 2nd Floor, Clinic 2A Joseph Quintana MD [address] [facility] [address] [facility] [address] [place], [place] [address] evaluation for Sanders Mimaalyssa chronic kidney Building disease (Primary Dx) [address] [place] [phone] Social History Tobacco Use Types Packs/Day Years [...] Dialysis Type: [facility] HD; and Dialysis unit: [facility] Primary School Lunch Manager: Dr. Martini Medical Hx: h/o HTN [...] by mouth daily. Yes Reported, Patient B bepnywg-A-nixpe acid (NEPHROCAPS) 1 MG capsule Take 1 [...] NEG Ketones Urine Negative NEG (mg/dL) Specific [place] Urine 1.010 1.003 - 1.035 Blood Urine [...] Report Value: Patient Name: ELINOR GUTHRIE MR#: [id number] Specimen #: [id number] Collected: 02/08/2012 07:07 Received: 02/08/2012 09:00 Reported: 02/11/2012 14:03 Ordering Phy(s): DARIAN JOSHI TEST(S) REQUESTED: A: Factor 5 Leiden and Factor 2 by PCR B: DNA Isolation, High purity extraction SPECIMEN DESCRIPTION: Blood METHODOLOGY: The regions of genomic DNA containing the X0829S Factor 5 gene mutation (Factor V Leiden) and the Factor 2(Prothrombin X04488L) gene mutation were simultaneously amplified using the polymerase chain reaction. The amplified products were digested with restriction endonuclease TaqI and products were analyzed by gel electrophoresis. RESULTS: FACTOR 5-LEIDEN RESULTS: Mutation analyzed: 1691G>A Factor 5 Mutation Interpretation: ABSENT Factor 5 Mutation genotype: G/G FACTOR 2/PROTHROMBIN RESULTS: Mutation analyzed: 12883L>A Factor 2 Mutation Interpretation: ABSENT Factor 2 Mutation genotype: G/G INTERPRETATION: The patient is negative for the Factor 5 mutation and negative for the Factor 2 mutation. This test was developed and its performance determined by the [facility]. It has [...] By: Liliya Stone MD TESTING LAB LOCATION: [address] [address] COLLECTION SITE: Client: [facility] Location: [facility]) HLA LUKASZ CLASS I SINGLE ANTIGEN [...] of an antiphospholipid syndrome, recommend anticardiolipin and swtx-8-hghoflfzkpaz (IgG and IgM) antibody tests. Dee Duenas M.D. [phone] 02-09-2012. APTT'S: Seconds Reagent = Stago LS Normal = 36 Patient = 38 1:2 Mix = N/A Reference = 31-43 DILUTE ANVARRO VIPER VENOM TEST: DRVVT Screen Ratio = [...] Range Ventricular Rate 60 Atrial Rate 60 AR Interval 186 QRS Duration 104 QT 440 QTc 440 P [place] 36 R AXIS 0 T [place] 36 Interpretation ECG Sinus rhythm Interpretation ECG [...] Function Test Value: Name: ELINOR GUTHRIE ID: [id number] Doctor: DONYA THOMAS Height: 72.00 in Age: [...] INTERPRETATION: The FVC, FEV1, FEV1/FVC ratio and DQC48-17% are within normal limits. The inspiratory flow [...] 02/10/2012 10:00 AM CDT >> AUSTEN FAUSTIN [facility] Feb 10, 2012 9:54 AM Took igor cc, reviewed meds and allergies documented in this encounter Plan of Treatment Not on filedocumented as of this encounter Visit Diagnoses Diagnosis Pre-transplant evaluation for chronic ki dney disease - Primary Other specified pre-operative examinatio n documented in this encounter Care Teams Fuel Yard Operator Relationship Specialty Start Date End Date Toña Jones MD PCP - General Nephrology 11/25/11 01/01/14 Ingrid Santana, RN Registered Nurse Transplant 02/10/12 documented as of this encounter
--- OUTSIDE RECORDS SUMMARY | 2022-05-28 11:28 | XMS_ITS | Encounter Summary ---
:1950 Author Organization [place] Address [address] [place] [address] Care Team Providers Name Role Phone Toña Jones MD Primary Care Provider Ingrid Santana RN Unavailable Unavailable Encounter Details Date Type Department Care Team Description 02/08/2012 Results Only LABORATORY RESULTS Jeff Joshi MD [facility] [facility] [address] [place] [address] (Wo rk) Social History Tobacco [...] Phon e Number UU HLA LABORATORY Immunology/Histocompatabil [place], [place] [address] ity [facility] [address] [facility] [address] Building, Room 3-580 HISTOTRAC documented in this encounter Visit Diagnoses Not on filedocumented in this encounter Care Teams Java J2Ee Lead Relationship Specialty Start Date End Date Toña Jones MD PCP - General Nephrology 11/25/11 01/01/14 Ingrid Santana RN Registered Nurse Transplant 02/10/12 documented as of this encounter
--- OUTSIDE RECORDS SUMMARY | 2022-05-28 11:28 | XMS_ITS | Encounter Summary ---
:1950 Author Organization [place] Address [address] [place] [address] Care Team Providers Name Role Phone Toña Jones MD Primary Care Provider Ingrid Santana RN Unavailable Unavailable Encounter Details Date Type Department Care Team Description 02/08/2012 Results Only LABORATORY RESULTS Jeff Joshi MD [facility] [facility] 353 [place] [address] (Wo rk) Social History Tobacco [...] I Single Antigen (02/08/2012 7:07 AM CDT) [facility] Method Time Signature SA1 Test Single [...] Phon e Number UU HLA LABORATORY Immunology/Histocompatabil [place], [place] [address] ity [facility] [address] Building, Room 3-580 HISTOTRAC documented in this encounter Visit Diagnoses Not on filedocumented in this encounter Care Teams Bag Machine Operator Relationship Specialty Start Date End Date Toña Jones MD PCP - General Nephrology 11/25/11 01/01/14 Ingrid Santana RN Registered Nurse Transplant 02/10/12 documented as of this encounter
--- OUTSIDE RECORDS SUMMARY | 2022-05-28 11:28 | XMS_ITS | Encounter Summary ---
:1950 Author Organization [place] Address [facility] [place] [address] Care Team Providers Name Role Phone Toña Jones MD Primary Care Provider Blayne Santana RN Unavailable Unavailable Reason for Visit Reason Comments Transplant Evaluation Encounter Details Date Type Department Care Team Description 02/08/2012 Office Visit Transplant Surgery Jesus Cardenas, DM (di abetes mellitus), type 2 (H); Clinic End stage renal disease (H) 2nd Floor, Clinic [address] [phone] Social History Tobacco Use Types Packs/Day Years [...] the original note were not included. 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 B pczcbzh-O-qvusx acid (NEPHROCAPS) 1 MG capsule Take 1 [...] Test 02/08/12 0725 INR 1.11 F2MAR -- [id number] -- Lipid Profile: Cholesterol Date Value Range [...] 09, 2012 3:21 PM Pre Abdominal Organ Manager Transmission Evaluation Note: present: Dr. Jesus Cardenas Attendees: self Type of transplant: kidney Required Topic(s) Discussed: Evaluation notification document, SRTR data, Multiple wait list brochure, JBOSS DEVELOPER, Evaluation/approval process, Selection committee process, Wait list [...] spent with patient: 15 minutes -- Nurse Manager Transmission Pager [phone] BLAYNE SANTANA -- Nurse Manager Transmission Pager [phone] >> Lena Sánchez RN santino Feb 08, [...] disease documented in this encounter Care Teams Aerospace Engineer Officer Armament Relationship Specialty Start Date End Date Toña Jones MD PCP - General Nephrology 11/25/11 01/01/14 Blayne Santana, RN Registered Nurse Transplant 02/10/12 documented as of this encounter
--- OUTSIDE RECORDS SUMMARY | 2022-05-28 11:28 | XMS_ITS | Encounter Summary ---
:1950 Author Organization [place] Address [address] [place] [address]. [place] [address] Care Team Providers Name Role Phone Toña [...] filedocumented in this encounter Care Teams Behavioral Therapist Relationship Specialty Start Date End Date Toña Jones MD PCP - General Nephrology 11/25/11 01/01/14 Momo Forbes PCP - General Family Practice 01/02/14 [facility] [address] [place] [address] Siers, Ingrid A, RN Registered Nurse Transplant 02/10/12 documented as of this encounter
--- OUTSIDE RECORDS SUMMARY | 2022-05-28 11:28 | XMS_ITS | Encounter Summary ---
:1950 Author Organization [place] Address [address] [place] [address] Care Team Providers Name Role Phone Toña Jones MD Primary Care Provider Ingrid Santana RN Unavailable Unavailable Reason for Visit (Routine) - Closed Specialty Diagnoses / Procedures Referred By Contact Refer red To Contact Radiology Diagnoses NM MPI SCAN Procedure Notes: UNSPECIFIED ESSENTIAL HYPERTENSION,PREOPERATIVE EXAMINATION, UNSPECIFIED, Uu Nuclear Medicine Procedures RADIOLOGY [address] [place] [address] Phone: Referral ID Status Reason Start Date Expiration Date Visits Requ ested Visits Authorized [id number] Closed 02/11/2012 02/10/2013 1 1 Encounter Details Date Type Department Care Team Description 02/15/2012 Hospital Encounter [facility] Barbara Bradley ESRD (end stage [facility] Imaging MD Monae renal disease) (H) [address] [facility] [address] [place] [address] Social History Tobacco Use [...] as needed Per patient on hold B irnctbe-M-dxygn acid Take 1 capsule by mouth 0 [...] disease documented in this encounter Care Teams Ammunition Officer Relationship Specialty Start Date End Date Toña Jones MD PCP - General Nephrology 11/25/11 01/01/14 Ingrid Santana, RN Registered Nurse Transplant 02/10/12 documented as of this encounter
--- OUTSIDE RECORDS SUMMARY | 2022-05-28 11:28 | XMS_ITS | Encounter Summary ---
:1950 Author Organization [place] Address [facility] [place] [address] Care Team Providers Name Role Phone Toña Jones MD Primary Care Provider Reason for Visit Reason Onset Date Comments Pre Visit Planning - Done 02/07/2012 Consult prior to kidney transplant, needs EKG please. Encounter Details Date Type Department Care Team Description 02/07/2012 PRE VISIT [facility] Barbara Bradley Pre Visit Planning - Physicians Heart MD Monae Done (Consult prior to Sanders Wangensteen [address] kidney transplant, [place] [address] needs EKG please.) 4th Floor, Clinic [address] [address] Social History Tobacco Use Types [...] on filedocumented in this encounter Care Teams Oncology Navigator Relationship Specialty Start Date End Date Toña Jones MD PCP - General Nephrology 11/25/11 01/01/14 documented as of this encounter
--- OUTSIDE RECORDS SUMMARY | 2022-05-28 11:28 | XMS_ITS | Encounter Summary ---
:1950 Author Organization [place] Address [address] [place] [address] Care Team Providers Name Role Phone Toña Jones MD Primary Care Provider Ingrid Santana RN Unavailable Unavailable Encounter Details Date Type Department Care Team Description 02/10/2012 Hospital Encounter [facility] Jesus Cardenas MD Nutrition Services Martina Harley, RD [address] [facility] [address] [place] [address] 420 [facility] Joseph Quintana MD [address] [facility] [address] [facility] [address] [place] [address] 84 [place] [address] Social History Tobacco Use Types Packs/Day Years [...] as needed Per patient on hold B srkpkqo-Z-hhemp acid Take 1 capsule by mouth 0 02/08/2014 (NEPHROCAPS) 1 MG daily. capsule lisinopril Take 40 mg by mouth 0 02/08 (PRINIVIL,ZESTRIL) 40 daily MG tablet METOPROLOL SUCCINATE Take 100 mg by mouth 0 02/08/2014 PO daily documented as of this encounter Progress Notes Martina Mcneill, RD - 02/10/2012 8:47 AM CDT [facility] Nutrition Therapy Visit Type: [...] on filedocumented in this encounter Care Teams Biztalk Administrator Relationship Specialty Start Date End Date Toña Jones MD PCP - General Nephrology 11/25/11 01/01/14 Ingrid Santana RN Registered Nurse Transplant 02/10/12 documented as of this encounter
--- OUTSIDE RECORDS SUMMARY | 2022-05-28 11:28 | XMS_ITS | Encounter Summary ---
:1950 Author Organization [place] Address [facility] [place] [address] Care Team Providers Name Role Phone Toña [...] 2 (H) Tommy Wilburn (Primar y Dx) [address] [phone] Social History Tobacco Use Types Packs/Day Years [...] this time. Patient to follow up with event coordinator. documented in this encounter Plan of Treatment Not on filedocumented as of this encounter Visit Diagnoses Diagnosis DM (diabetes mellitus), type 2 (H) - Ana ashley Type II or unspecified type diabetes aung litus without mention of complication, not stated as uncontrolled documented in this encounter Care Teams Hospice Spiritual Care Coordinator Relationship Specialty Start Date End Date Toña Jones MD PCP - General Nephrology 11/25/11 01/01/14 Ingrid Santana RN Registered Nurse Transplant 02/10/12 documented as of this encounter
--- OUTSIDE RECORDS SUMMARY | 2022-05-28 11:28 | XMS_ITS | Encounter Summary ---
:1950 Author Organization [place] Address [address] [place] [address] Care Team Providers Name Role Phone Toña Jones MD Primary Care Provider Ingrid Santana RN Unavailable Unavailable Encounter Details Date Type Department Care Team Description 02/08/2012 Results Only LABORATORY RESULTS Jeff Joshi MD [address] [facility] [address] [place] [address] (Wo rk) Social History [...] II Single Antigen (02/08/2012 7:07 AM CDT) [facility] Method Time Signature SA2 Test Single [...] Phon e Number [facility] HLA LABORATORY Immunology/Histocompatabil [place], [place] [address] [facility] [address] Building, Room 3-580 HISTOTRAC documented in this encounter Visit Diagnoses Not on filedocumented in this encounter Care Teams Back Facer Relationship Specialty Start Date End Date Toña Jones MD PCP - General Nephrology 11/25/11 01/01/14 Ingrid Santana RN Registered Nurse Transplant 02/10/12 documented as of this encounter
--- OUTSIDE RECORDS SUMMARY | 2022-05-28 11:28 | XMS_ITS | Encounter Summary ---
:1950 Author Organization [place] Address [facility] [place] [address] Care Team Providers Name Role Phone Toña Jones MD Primary Care Provider Reason for Visit Reason Onset Date Comments Patient Reminder 02/01/2012 Encounter Details Date Type Department Care Team Description 02/01/2012 PRE VISIT Nephrology Joseph Quintana, Patient Reminder 2nd Floor, Clinic 2A MD Tommy Guillermo[address] [place], [place] [address] [place] [address] (Wo rk) [id number] [phone] Social History Tobacco Use Types Packs/Day Years [...] filedocumented in this encounter Care Teams Ship Scraper Relationship Specialty Start Date End Date Toña Jones MD PCP - General Nephrology 11/25/11 01/01/14 documented as of this encounter
--- OUTSIDE RECORDS SUMMARY | 2022-05-28 11:28 | XMS_ITS | Encounter Summary ---
:1950 Author Organization [place] Address [address] [place] [address] Care Team Providers Name Role Phone Toña Jones MD Primary Care Provider Encounter Details Date Type Department Care Team Description 02/08/2012 Hospital Encounter [facility] Jesus Cardenas MD Patient Learning Bobby Angela Leon, BOGDAN [address] [place], [place] [address] [address] [place] [address] Social History Tobacco Use Types Packs/Day Years [...] 0 02/10/2012 10 MG tablet daily. B irbpxpd-U-ygpns acid Take 1 capsule by mouth 0 [...] filedocumented in this encounter Care Teams Human Resource Professional Relationship Specialty Start Date End Date Toña Jones MD PCP - General Nephrology 11/25/11 01/01/14 documented as of this encounter
--- OUTSIDE RECORDS SUMMARY | 2022-05-28 11:28 | XMS_ITS | Encounter Summary ---
:1950 Author Organization [place] Address [address] [facility] [address] Care Team Providers Name Role Phone Toña Jones MD Primary Care Provider Ingrid Santana RN Unavailable Unavailable Reason for Visit Reason Comments Heart Problem Consult prior to kidney proctor splant, needs EKG please. Encounter Details Date Type Department Care Team Description 02/10/2012 Office Visit Justice Barbara Bradley Unspecified es sential hypertension; [facility] Chance Licona Pre-operative clearance Heart [address] [place] [address] Building [phone] 4th Floor, Clinic 4B (Work) [address] [address] Social History Tobacco Use Types [...] Stay Well and Call Maribel Nicole RN [phone] with any questions or concerns. You are scheduled for an Adenosine Stress Test 02/15/2012: Please check into the [facility] Waiting Room at 12:15pm for [...] and you need to reschedule, please call [phone]. January 2012Tuesday 1 2 3 4 5 6 7 8 9 10 11 12 13 14 15 16 17 18 19 [facility] NEW 6:30 AM (30 min.) Evaluation, [facility] Transplant [facility] FULL PULMONARY FUNCTION 8:00 AM (60 min.) 2, [facility] Pfl [place] Pulmonary Function Laboratory RADIOLOGY 8:05 AM (10 min.) Uicxr2 [facility] Diagnostic Imaging [facility] PREP KIDNEY/PANCREAS TX 9:00 AM (120 min.) Angela Lopez, [facility], [place], Patient Learning Center [facility] TRANSPLANT CLASS KIDNEY 9:00 AM (90 min.) Class, [facility] Transplant [facility] Transplant [facility] COMPOSITION WEATHERBOARD APPLIER 11:00 AM (30 min.) Coordinator, [facility] Care [facility] Transplant [facility] PRE-TX KIDNEY EVAL 11:00 AM (30 min.) Donya Thomas MD Transplant Surgery LAB 11:30 AM (15 min.) Pwb, Op Lab [facility], Lab RADIOLOGY 1:30 PM (55 min.) Uecvc1 [facility], Echocardiography 20 21 [facility] RETURN 7:00 AM (15 min.) Evaluation, [facility] Txc [facility] RADIOLOGY 7:00 AM (60 min.) Uicusr2 [facility] Diagnostic Imaging CONSULT HOD 8:00 AM (60 min.) Martina Mcneill, JOHN [facility], Nutrition Services [facility] SOCIAL WORK 9:00 AM (60 min.) 2, [facility] Tx Consult Room [facility] Transplant [facility] PRE-TX KIDNEY EVAL 10:00 AM (60 min.) Joseph Quintana MD Nephrology [facility] PANCREAS-KIDNEY TX W/U 11:30 AM (30 min.) Barbara Bradley MD [facility] Physicians Heart 22 23 24 25 26 RADIOLOGY 12:30 PM (15 min.) Uninj [facility], Nuclear Medicine RADIOLOGY 1:15 PM (20 min.) Unr1 [facility], Nuclear Medicine RADIOLOGY 1:40 PM (30 min.) [facility] ELECTROCARDIOLOGY RADIOLOGY 3:10 PM (20 min.) Unr1 [facility], Nuclear Medicine 27 28 29 20 [...] 1 tablet by mouth daily. ??? 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 Perez MD drywall stripper. Divisions of Cardiology [facility] Patient Care Team: Toña Jones MD as PCP - General (Nephrology) Ingrid Santana RN as Registered Nurse (Transplant) DONYA THOMAS documented in this encounter Plan of Treatment Not on filedocumented as of this encounter Visit Diagnoses Diagnosis Unspecified essential hypertension Pre-operative clearance Preoperative examination, unspecified documented in this encounter Care Teams Funnel Setter Relationship Specialty Start Date End Date Toña Jones MD PCP - General Nephrology 11/25/11 01/01/14 Ingrid Santana RN Registered Nurse Transplant 02/10/12 documented as of this encounter
--- OUTSIDE RECORDS SUMMARY | 2022-05-28 11:28 | XMS_ITS | Encounter Summary ---
:[address] Address [facility] [place] [address] Care Team Providers Name Role Phone Toña Jones MD Primary Care Provider Ingrid Santana RN Unavailable Unavailable Encounter Details Date Type Department Care Team Description 12/07/2011 Orders Only Nephrology Chucho Joshi MD Dialysis patient (H) 2nd Floor, Clinic 2A [address] [place]AN (Primary Dx) Tommy [address] [place] [address] [place] [address] [place], [place] [phone] (Wo rk) [id number] [phone] Social History Tobacco Use Types Packs/Day Years Used Date Never Assessed Sex Assigned at Date Recorded Not on file documented as of this encounter Plan of Treatment Not on filedocumented as of this encounter Visit Diagnoses Diagnosis Dialysis patient (H) - Primary Renal dialysis status documented in this encounter Care Teams Osd Clerk Relationship Specialty Start Date End Date Toña Jones MD PCP - General Nephrology 11/25/11 01/01/14 Ingrid Santana, RN Registered Nurse Transplant 02/10/12 documented as of this encounter
--- OUTSIDE RECORDS SUMMARY | 2022-05-28 11:29 | XMS_ITS | Encounter Summary ---
:1950 Author Organization [place] Address [facility] [place] [address] Care Team Providers Name Role Phone Toña [...] on filedocumented in this encounter Care Teams Fixed Interest Dealer Relationship Specialty Start Date End Date Toña Jones MD PCP - General Nephrology 11/25/11 01/01/14 Momo Forbes PCP - General Family Practice 01/02/14 [facility] [address] [place] [address] Ingrid Santana, RN Registered Nurse Transplant 02/10/12 documented as of this encounter
--- OUTSIDE RECORDS SUMMARY | 2022-05-28 11:29 | XMS_ITS | Encounter Summary ---
:1950 Author Organization [place] Address [address] [place] [address]. [place] [address] Care Team Providers Name Role Phone Toña [...] on filedocumented in this encounter Care Teams Sleeve Sewer Relationship Specialty Start Date End Date Toña Jones MD PCP - General Nephrology 11/25/11 01/01/14 Momo Forbes PCP - General Family Practice 01/02/14 [facility] [address] [place] [address] Siers, Ingrid A, RN Registered Nurse Transplant 02/10/12 documented as of this encounter
--- OUTSIDE RECORDS SUMMARY | 2022-05-28 11:29 | XMS_ITS | Encounter Summary ---
:1950 Author Organization [place] Address [address] [place] [address]. [place] [address] Care Team Providers Name Role Phone Toña [...] on filedocumented in this encounter Care Teams Cokeman Relationship Specialty Start Date End Date Toña Jones MD PCP - General Nephrology 11/25/11 01/01/14 Momo Forbes PCP - General Family Practice 01/02/14 [facility] [address] [place] [address] Siers, Ingrid A, RN Registered Nurse Transplant 02/10/12 documented as of this encounter
--- OUTSIDE RECORDS SUMMARY | 2022-05-28 11:29 | XMS_ITS | Encounter Summary ---
:1950 Author Organization [place] Address [address] [place] [address]. [place] [address] Care Team Providers Name Role Phone Toña [...] this encounter Care Teams Assistant Professor Of Drama Relationship Specialty Start Date End Date Toña Jones MD PCP - General Nephrology 11/25/11 01/01/14 Momo Forbes PCP - General Family Practice 01/02/14 [facility] [address] [place] [address] Siers, Ingrid A, RN Registered Nurse Transplant 02/10/12 documented as of this encounter
--- OUTSIDE RECORDS SUMMARY | 2022-05-28 11:29 | XMS_ITS | Encounter Summary ---
:1950 Author Organization [place] Address [facility] [place] [address] Care Team Providers Name Role Phone Toña [...] CARDIAC - HIM SCAN 08/30/2011 8:28 AM DYED YARN OPERATOR - ARCHIVE ECHO CARDIAC - HIM SCAN 08/30/2011 8:27 AM DYED YARN OPERATOR - ARCHIVE documented in this encounter Results EKG CARDIAC - HIM SCAN - ARCHIVE (08/30/2011 8:28 AM DYED YARN OPERATOR) Specimen (Source) Anatomical Location Collection Method / Collectio n Time Received Time / Laterality Volume Narrative This result has an attachment that is no t available. Marcela Provider ECG ORDERABLES ECHO CARDIAC - HIM SCAN - ARCHIVE (08/30/2011 8:27 AM DYED YARN OPERATOR) Specimen (Source) Anatomical Location Collection Method / Collectio n Time Received Time / Laterality Volume Narrative This result has an attachment that is no t available. Marcela Provider CV ECHO ORDERABLES documented in this encounter Visit Diagnoses Not on filedocumented in this encounter Care Teams Interpreter And Translator Relationship Specialty Start Date End Date Toña Jones MD PCP - General Nephrology 11/25/11 01/01/14 Momo Forbes PCP - General Family Practice 01/02/14 [place] [id number] Ingrid Santana, RN Registered Nurse Transplant 02/10/12 documented as of this encounter
--- OUTSIDE RECORDS SUMMARY | 2022-05-28 11:29 | XMS_ITS | Encounter Summary ---
:1950 Author Organization [place] Address [facility] [place] [address] Care Team Providers Name Role Phone Toña [...] on filedocumented in this encounter Care Teams Psych Sales Specialist Relationship Specialty Start Date End Date Toña Jones MD PCP - General Nephrology 11/25/11 01/01/14 Momo Forbes PCP - General Family Practice 01/02/14 [facility] [address] [place] [address] Ingrid Santana, RN Registered Nurse Transplant 02/10/12 documented as of this encounter
--- OUTSIDE RECORDS SUMMARY | 2022-05-28 11:29 | XMS_ITS | Encounter Summary ---
:1950 Author Organization [place] Address [address] [place] [address]. [place] [address] Care Team Providers Name Role Phone Toña [...] on filedocumented in this encounter Care Teams Landscaping And Groundskeeping Laborer Relationship Specialty Start Date End Date Toña Jones MD PCP - General Nephrology 11/25/11 01/01/14 Momo Forbes PCP - General Family Practice 01/02/14 [facility] [address] [place] [address] Siers, Ingrid A, RN Registered Nurse Transplant 02/10/12 documented as of this encounter
--- OUTSIDE RECORDS SUMMARY | 2022-05-28 11:29 | XMS_ITS | Encounter Summary ---
:1950 Author Organization [place] Address [address] [place] [address]. [place] [address] Care Team Providers Name Role Phone Toña Jones MD Primary Care Provider Ingrid Santana RN Unavailable Unavailable Momo Forbes Primary Care Provider Encounter Details Date Type Department Care Team Description 01/28/1998 [facility] Cesar Burton [facility] [address] [place], [place] [address] (Wo rk) Social History Tobacco Use Types Packs/Day Years Used Date Never Assessed Sex Assigned at Date Recorded Not on file documented as of this encounter Plan of Treatment Not on filedocumented as of this encounter Visit Diagnoses Not on filedocumented in this encounter Care Teams Fruit Picker Relationship Specialty Start Date End Date Toña Jones MD PCP - General Nephrology 11/25/11 01/01/14 Momo Forbes PCP - General Family Practice 01/02/14 [facility] [address] [place] [address] Ingrid Santana, RN Registered Nurse Transplant 02/10/12 documented as of this encounter
--- OUTSIDE RECORDS SUMMARY | 2022-05-28 11:29 | XMS_ITS | Encounter Summary ---
:1950 Author Organization [place] Address [address] [place] [address]. [place] [address] Care Team Providers Name Role Phone Toña [...] filedocumented in this encounter Care Teams Market Consultant Relationship Specialty Start Date End Date Toña Jones MD PCP - General Nephrology 11/25/11 01/01/14 Momo Forbes PCP - General Family Practice 01/02/14 [facility] [address] [place] [address] Siers, Ingrid A, RN Registered Nurse Transplant 02/10/12 documented as of this encounter
--- OUTSIDE RECORDS SUMMARY | 2022-05-28 11:29 | XMS_ITS | Encounter Summary ---
:1950 Author Organization [place] Address [facility]0 [place] [address] Care Team Providers Name Role Phone Toña [...] in this encounter Care Teams Manager Of Software Relationship Specialty Start Date End Date Toña Jones MD PCP - General Nephrology 11/25/11 01/01/14 Momo Forbes PCP - General Family Practice 01/02/14 [facility] [address] [place] [address] Ingrid Santana, RN Registered Nurse Transplant 02/10/12 documented as of this encounter
--- OUTSIDE RECORDS SUMMARY | 2022-05-28 11:29 | XMS_ITS | Encounter Summary ---
:1950 Author Organization [place] Address [address] [facility] [place] [address] Care Team Providers Name Role Phone Unavailable Primary Care Provider Unavailable Encounter Details Date Type Department Care Team Description 07/30/2009 Results [facility] Results [address] [place] [id number] Social History Tobacco Use Types Packs/Day Years Used Date Never Assessed Sex Assigned at Date Recorded Not on file documented as of this encounter Plan of Treatment Not on filedocumented as of this encounter Procedures Procedure Name Priority Date/Time Associated Diagnosis Comme [facility] RT DUPLEX Routine 07/30/2009 12:32 PM Results for this EXTREM VENOUS,UNI GENERAL SUPERVISOR procedure are in OR LTD the results section. documented in this encounter Results RT DUPLEX EXTREM VENOUS,UNI OR LTD (07/30/2009 12:32 PM GENERAL SUPERVISOR) Specimen (Source) Anatomical Collection Method Collection Time Re ceived Time Location / / Volume Laterality 07/30/2009 12:32 PM GENERAL SUPERVISOR Impressions RADIOLOGY RESULTS - 07/30/2009 4:21 [...]
--- OUTSIDE RECORDS SUMMARY | 2022-05-28 11:29 | XMS_ITS | Encounter Summary ---
:1950 Author Organization [place] Address [address] [place] [address]. [place] [address] Care Team Providers Name Role Phone Toña [...] filedocumented in this encounter Care Teams Bar Host/Hostess Relationship Specialty Start Date End Date Toña oJnes MD PCP - General Nephrology 11/25/11 01/01/14 Momo Forbes PCP - General Family Practice 01/02/14 [facility] [address] [place] [address] Ingrid Santana, RN Registered Nurse Transplant 02/10/12 documented as of this encounter
--- OUTSIDE RECORDS SUMMARY | 2022-05-28 11:29 | XMS_ITS | Encounter Summary ---
:1950 Author Organization [place] Address [address] [place] [address]. [place] [address] Care Team Providers Name Role Phone Toña [...] filedocumented in this encounter Care Teams Rn Mental Health Relationship Specialty Start Date End Date Toña Jones MD PCP - General Nephrology 11/25/11 01/01/14 Momo Forbes PCP - General Family Practice 01/02/14 [facility] [address] [place] [address] Siers, Ingrid A, RN Registered Nurse Transplant 02/10/12 documented as of this encounter
--- OUTSIDE RECORDS SUMMARY | 2022-05-28 11:29 | XMS_ITS | Encounter Summary ---
:1950 Author Organization [place] Address [address] [place] [address]. [place] [address] Care Team Providers Name Role Phone Toña [...] on filedocumented in this encounter Care Teams Armature And Rotor Winder Relationship Specialty Start Date End Date Toña Jones MD PCP - General Nephrology 11/25/11 01/01/14 Momo Forbes PCP - General Family Practice 01/02/14 [facility] [address] [place] [address] Siers, Ingrid A, RN Registered Nurse Transplant 02/10/12 documented as of this encounter
--- OUTSIDE RECORDS SUMMARY | 2022-05-28 11:29 | XMS_ITS | Encounter Summary ---
:1950 Author Organization [place] Address [address] [place] [address]. [place] [address] Care Team Providers Name Role Phone Toña [...] filedocumented in this encounter Care Teams Grinder Operator Tool Relationship Specialty Start Date End Date Toña Jones MD PCP - General Nephrology 11/25/11 01/01/14 Momo Forbes PCP - General Family Practice 01/02/14 [facility] [address] [place] [address] Siers, Ingrid A, RN Registered Nurse Transplant 02/10/12 documented as of this encounter
--- OUTSIDE RECORDS SUMMARY | 2022-05-28 11:29 | XMS_ITS | Encounter Summary ---
:1950 Author Organization [place] Address [address] [facility] [place] [address] Care Team Providers Name Role Phone Toña [...] - HIM SCAN - 11/02/2005 8:27 AM HARDBOARD FACTORY WORKER ARCHIVE LAB RESULT - HIM SCAN - 11/02/2005 8:25 AM HARDBOARD FACTORY WORKER ARCHIVE documented in this encounter Results LAB RESULT - HIM SCAN - ARCHIVE (11/02/2005 8:27 AM HARDBOARD FACTORY WORKER) Specimen (Source) Anatomical Location Collection Method / Collectio n Time Received Time / Laterality Volume Narrative This result has an attachment that is no t available. Marcela Provider LAB - BLOOD ORDERABLES LAB RESULT - HIM SCAN - ARCHIVE (11/02/2005 8:25 AM HARDBOARD FACTORY WORKER) Specimen (Source) Anatomical Location Collection Method / Collectio n Time Received Time / Laterality Volume Narrative This result has an attachment that is no t available. Marcela Provider LAB - BLOOD ORDERABLES documented in this encounter Visit Diagnoses Not on filedocumented in this encounter Care Teams Interactive Multimedia Designer Relationship Specialty Start Date End Date Toña Jones MD PCP - General Nephrology 11/25/11 01/01/14 Momo Forbes PCP - General Family Practice 01/02/14 [place] [address] Ingrid Santana, RN Registered Nurse Transplant 02/10/12 documented as of this encounter
--- OUTSIDE RECORDS SUMMARY | 2022-05-28 11:29 | XMS_ITS | Encounter Summary ---
:1950 Author Organization [place] Address [address] [place] [address]. [place] [address] Care Team Providers Name Role Phone Toña [...] on filedocumented in this encounter Care Teams Office Service Coordinator Relationship Specialty Start Date End Date Toña Jones MD PCP - General Nephrology 11/25/11 01/01/14 Momo Forbes PCP - General Family Practice 01/02/14 [facility] [address] [place] [address] Siers, Ingrid A, RN Registered Nurse Transplant 02/10/12 documented as of this encounter
--- OUTSIDE RECORDS SUMMARY | 2022-05-28 11:29 | XMS_ITS | Encounter Summary ---
:1950 Author Organization [place] Address [address] [place] [address]. [place] [address] Care Team Providers Name Role Phone Toña [...] on filedocumented in this encounter Care Teams General Manager Relationship Specialty Start Date End Date Toña Jones MD PCP - General Nephrology 11/25/11 01/01/14 Momo Forbes PCP - General Family Practice 01/02/14 [facility] [address] [place] [address] Siers, Ingrid A, RN Registered Nurse Transplant 02/10/12 documented as of this encounter
--- OUTSIDE RECORDS SUMMARY | 2022-05-28 11:29 | XMS_ITS | Encounter Summary ---
:1950 Author Organization [place] Address [facility] [place] [address] Care Team Providers Name Role Phone Toña [...] Marcela Provider PFT ORDERABLES SLEEP STUDY - [facility] SCAN - ARCHIVE (05/20/2011 8:28 AM CDT) Specimen (Source) Anatomical Location Collection Method / Collectio n Time Received Time / Laterality Volume Narrative This result has an attachment that is no t available. Marcela Cordero MD PFT ORDERABLES documented in this encounter Visit Diagnoses Not on filedocumented in this encounter Care Teams Spool Tender Relationship Specialty Start Date End Date Toña Jones MD PCP - General Nephrology 11/25/11 01/01/14 Momo Forbes PCP - General Family Practice 01/02/14 [facility] [address] [place] [address] Ingrid Santana, RN Registered Nurse Transplant 02/10/12 documented as of this encounter
--- OUTSIDE RECORDS SUMMARY | 2022-05-28 11:29 | XMS_ITS | Encounter Summary ---
:1950 Author Organization [place] Address [address] [facility] [place] [address] Care Team Providers Name Role Phone Toña [...] on filedocumented in this encounter Care Teams Launch Steward Relationship Specialty Start Date End Date Toña Jones MD PCP - General Nephrology 11/25/11 01/01/14 Momo Forbes PCP - General Family Practice 01/02/[address] [address] Ingrid Santana, RN Registered Nurse Transplant 02/10/12 documented as of this encounter
--- OUTSIDE RECORDS SUMMARY | 2022-05-28 11:29 | XMS_ITS | Encounter Summary ---
:1950 Author Organization [place] Address [facility] [place] [address] Care Team Providers Name Role Phone Toña [...] filedocumented in this encounter Care Teams Paint [employer] Relationship Specialty Start Date End Date Toña Jones MD PCP - General Nephrology 11/25/11 01/01/14 Momo Forbes PCP - General Family Practice 01/02/14 [facility] [address] [place] [address] Ingrid Santana, RN Registered Nurse Transplant 02/10/12 documented as of this encounter
--- OUTSIDE RECORDS SUMMARY | 2022-05-28 11:29 | XMS_ITS | Encounter Summary ---
:1950 Author Organization [place] Address [facility]0 [facility] [place] [address] Care Team Providers Name Role Phone Toña Jones MD Primary Care Provider Reason for Referral - Closed Specialty Diagnoses / Procedures Referred By Contact Refer red To Contact Diagnoses Diabetes mellitus, type 2 (H) End stage renal disease (H) [facility] Ren[facility] Floor, [place] [phone] Referral ID Status Reason Start Date Expiration Date Visits Requ ested Visits Authorized [id number] Closed 12/02/2011 05/30/2012 1 1 - Closed Specialty Diagnoses / Procedures Referred By Contact Refer red To Contact Diagnoses Diabetes mellitus, type 2 (H) End stage renal disease (H) [facility] Ren[facility] Floor, [address] [phone] Referral ID Status Reason Start Date Expiration Date Visits Requ ested Visits Authorized [id number] Closed 12/02/2011 05/30/2012 1 1 - Closed Specialty Diagnoses / Procedures Referred By Contact Refer red To Contact Diagnoses Diabetes mellitus, type 2 (H) End stage renal disease (H) [facility] Renal 2nd Floor, [facility] 2A [place] [phone] Referral ID Status Reason Start Date Expiration Date Visits Requ ested Visits Authorized [id number] Closed 12/02/2011 05/30/2012 1 1 - Closed Specialty Diagnoses / Procedures Referred By Contact Refer red To Contact Diagnoses Diabetes mellitus, type 2 (H) End stage renal disease (H) [facility] Renal 2nd Floor, Clinic [address] [place] [phone] Referral ID Status Reason Start Date Expiration Date Visits Requ ested Visits Authorized [id number] Closed 12/02/2011 05/30/2012 1 1 - Closed Specialty Diagnoses / Procedures Referred By Contact Refer red To Contact Diagnoses Diabetes mellitus, type 2 (H) End stage renal disease (H) [facility] Renal [facility] Floor, [address] [phone] Referral ID Status Reason Start Date Expiration Date Visits Requ ested Visits Authorized [id number] Closed 12/02/2011 05/30/2012 1 1 - Closed Specialty Diagnoses / Procedures Referred By Contact Refer red To Contact Diagnoses Diabetes mellitus, type 2 (H) End stage renal disease (H) [facility] Renal [address] [place] [address], [address] [phone] Referral ID Status Reason Start Date Expiration Date Visits Requ ested Visits Authorized [id number] Closed 12/02/2011 05/30/2012 1 1 - Closed Specialty Diagnoses / Procedures Referred By Contact Refer red To Contact Diagnoses Diabetes mellitus, type 2 (H) End stage renal disease (H) [facility] Renal 2nd Floor, Clinic [address] [phone] Referral ID Status Reason Start Date Expiration Date Visits Requ ested Visits Authorized [id number] Closed 12/02/2011 05/30/2012 1 1 - Closed Specialty Diagnoses / Procedures Referred By Contact Refer red To Contact Diagnoses Diabetes mellitus, type 2 (H) End stage renal disease (H) [facility]al 2nd Floor, Clinic [address] [address] [phone] Referral ID Status Reason Start Date Expiration Date Visits Requ ested Visits Authorized [id number] Closed 12/02/2011 05/30/2012 1 1 - Closed Specialty Diagnoses / Procedures Referred By Contact Refer red To Contact Diagnoses Diabetes mellitus, type 2 (H) End stage renal disease (H) [facility] Renal 2nd Floor, Clinic [address] [address] [phone] Referral ID Status Reason Start Date Expiration Date Visits Requ ested Visits Authorized [id number] Closed 12/02/2011 05/30/2012 1 1 Encounter Details Date Type Department Care Team Description 12/02/2011 Orders Only Nephrology Ingrid Santana, Diabetes mellitus, type 2 (H ); 2nd Floor, Clinic 2A RN End stage renal disease (H) [address] [phone] Social History Tobacco Use Types [...] 2 (H) End stage renal disease (H) [facility] Referral Routine Diabetes mellitus, Ordered: 12/02/2011 REFERRAL type 2 (H) End stage renal disease (H) NEPHROLOGY ADULT REFERRAL Referral Routine Diabetes mellit us, Ordered: 12/02/2011 type 2 (H) End stage renal disease (H) GENERAL SURG ADULT Referral Routine Diabetes mellitus, Ord ered: 12/02/2011 REFERRAL type 2 (H) End stage renal disease (H) NEEDLE CONTROL [place] REFERRAL Referral Routine Diabetes mellitu s, Ordered: [...] documented in this encounter Care Teams Public Housing Interviewer Relationship Specialty Start Date End Date Toña Jones MD PCP - General Nephrology 11/25/11 01/01/14 documented as of this encounter
== END 2022-05-28 11:11 | disposition home or self-care (01) ==
LOC: WOUND 11:10
PROVIDERS: PCP Family Medicine; Visit Provider Surgery
DX: L89.313 Pressure ulcer of right buttock, stage 3 (principal)
CPT/HCPCS: 99212

== ENCOUNTER 2022-06-23 11:15 | Outpatient (CLI) | payer MEDICARE, BC, SELFPAY ==
--- OUTSIDE RECORDS SUMMARY | 2022-06-23 11:18 | XMS_ITS | Encounter Summary ---
:1950 Author Organization [place] Address [address] [place] [address] Care Team Providers Name Role Phone Momo Forbes Primary Care Provider Joseph Quintana MD Unavailable Reason for Visit Reason Onset Date Comments Transplant Lab 05/04/2022 Elevated serum creat inine and proteinuria Encounter Details Date Type Department Care Team Description 05/04/2022 Telephone [facility] Gretta Peacock RN Trans plant Lab (Elevated Transplant Clinic serum creatinine and [address] proteinuria) [place] [address] Social History Tobacco Use Types Packs/Day Years Used Date Smoking Tobacco: Former Cigars Quit : 08/22/2006 Smokeless Tobacco: Never Alcohol Use Standard Drinks/Week Comments Yes 0 (1 standard drink = 0.6 oz pure alcoho l) occasional drink. Sex Assigned at Date Recorded Not on [...] filedocumented in this encounter Care Teams Hand Mold Maker Relationship Specialty Start Date End Date Momo Forbes PCP - General Family Practice 01/02/14 [facility] [address] [place] [address] Joseph Quintana, Assigned Nephrology 03/29/21 Provider [address] [place] [address] documented as of this encounter
--- OUTSIDE RECORDS SUMMARY | 2022-06-23 11:18 | XMS_ITS | Encounter Summary ---
:1950 Author Organization [place] Address [address] [place] [address] Care Team Providers Name Role Phone Momo Forbes Primary Care Provider Joseph Quintana MD Unavailable Encounter Details Date Type Department Care Team Description 06/05/[address] [facility] Evelyn Schuster RN Transplant Clinic [address] [phone] [facility] [phone] [place] [address] (Wo rk) Social History Tobacco Use Types Packs/Day Years Used Date Smoking Tobacco: Former Cigars Quit : 08/22/2006 Smokeless Tobacco: Never Alcohol Use Standard Drinks/Week Comments Yes 0 (1 standard drink = 0.6 oz pure alcoho l) occasional drink. Sex Assigned at Date Recorded Not on file documented as of this encounter Miscellaneous Notes Telephone Encounter - Evelyn Schuster RN - 06/05/2022 10:45 AM CDT Received a phone call from Dr. Schuler at an OSH - pt is discharging - she had spoken with Dr. Gómez, see note dated 06.02.2022. MMF is on hold, she asks if it can be restarted. Dr. Schuler was not able to have monoclonal antibody administered while pt was hospitalized. Per Dr. Gómez's note 06.02.2022, pt resume MMF at discharge. Pt has not had follow-up with transplant nephrology in > 1 year, FYI to coordinator to follow-up. documented in this encounter Plan of Treatment Not on filedocumented as of this encounter Visit Diagnoses Not on filedocumented in this encounter Care Teams Compressor Service Technician Relationship Specialty Start Date End Date Momo Forbes PCP - General Family Practice 01/02/14 [facility] [address] [place] [address] Joseph Quintana, Assigned Nephrology 03/29/21 MD Provider 7 [facility] [address] [facility] [address] [place], [place] [phone] documented as of this encounter
--- OUTSIDE RECORDS SUMMARY | 2022-06-23 11:18 | XMS_ITS | Encounter Summary ---
:1950 Author Organization [place] Address [address] [place] [place] [address] Care Team Providers Name Role Phone Momo Forbes Primary Care Provider Joseph Quintana MD Unavailable Encounter Details Date Type Department Care Team Description 06/02/[address] [facility] Dash Gómez am, MD Nephrology Clinic [address] [place] [phone] Social History Tobacco Use Types Packs/Day Years Used Date Smoking Tobacco: Former Cigars Quit : 08/22/2006 Smokeless Tobacco: Never Alcohol Use Standard Drinks/Week Comments Yes 0 (1 standard drink = 0.6 oz pure alcoho l) occasional drink. Sex Assigned at Date Recorded Not on file documented as of this encounter Progress Notes Satish Gómez MD - 06/02/2022 2:36 PM CDT I received a call from an OSH that Diego is admitted with + COVID, hypoxia, possible UTI, community acquired PNA. They gave him dexamethasone and will continue that. I asked that they hold MMF, continue tac, give bebletovimab, no paxlovid, antibiotics to treat pneumonia. I gave her the clinic number to update us and let us know when he is being discharged because we will need to restart MMF Satish Gómez MD, [place] Trans[facility] Nephrology Pager: [phone] documented in this encounter Plan of Treatment Not on filedocumented as of this encounter Visit Diagnoses Not on filedocumented in this encounter Care Teams Ream Cutter Relationship Specialty Start Date End Date Momo Forbes PCP - General Family Practice 01/02/14 [facility] [address] [place] [address] Joseph Quintana, Assigned Nephrology 03/29/21 MD Provider 7[address] [facility] [address] [facility] [address] [place] [address] documented as of this encounter
--- OUTSIDE RECORDS SUMMARY | 2022-06-23 11:18 | XMS_ITS | Clinical Summary ---
:1950 Author Organization [employer] [place] [address] Care Team Providers Name Role Phone Momo Forbes MD Primary Care Provider [phone] Allergies No known active allergies Medications Medication Sig Dispensed Refills Start End Status Date Date mycophenolate Take 3 capsules 0 06/03/20 Active (CELLCEPT) 250 mg by mouth every 16 capsuleIndications: 12 hours. -donor kidney transplant recipient rosuvastatin TAKE ONE TABLET 90 tablet 1 07/11/20 A ctive (CRESTOR) 10 mg BY MOUTH EVERY 18 tabletIndications: DAY AT BEDTIME Hyperlipidemia, unspecified hyperlipidemia type escitalopram oxalate Take 20 mg by 0 Active (LEXAPRO) 20 mg mouth once tablet daily. miscellaneous As directed. KCI 1 unit 0 09/24/19 Active medical supply wound VAC 21 miscIndications: Setting 125mmHg Diabetic foot placed 09/19/20 - infection (HC) Okay to use [facility] Right foot wound debridement with application of integra bilayer matrix and wound vac, 10.0 cm x 5.0 cm x 0.6 cm. M- W-F dressing changes gabapentin Take 1 capsule 21 capsule 0 09/26/19 Act jo (NEURONTIN) 300 mg by mouth 3 times 21 capsuleIndications: daily. neuropathic pain Indications: neuropathic pain durable medical Custom [place] boot 1 Each 0 11/27/19 Active equipment to control 21 (DME)Indications: charcot midfoot Abnormality of gait, instability Diabetes mellitus with neurological manifestations, uncontrolled, Status post below knee amputation, unspecified laterality (HC), Type 2 diabetes mellitus with diabetic nephropathy, with long-term current use of insulin (HC) durable medical Extra depth 1 Each 0 04/20/20 Ac tive equipment diabetic shoes, 21 (DME)Indications: 3 pair tri layer Diabetic foot (HC), accommodative Peripheral inserts polyneuropathy, Charcot's joint of right foot durable medical Modify 1 Each 0 06/18/20 Acti ve equipment shoe/insert so 21 (DME)Indications: that there is Ulcer of right foot, not pressure at limited to breakdown the ulceration of skin (HC) sites. Gauze Bandage 4 X 4 For home use. 30 Each 10 06/18/20 Active Indications: Ulcer 21 of right foot, limited to breakdown of skin (HC) gauze bandage (Shalom Apply topically 30 Each 5 06/18/20 Active Flexible Gauze) 4 X to affected 21 2.5 -yard area(s). bndgIndications: Ulcer of right foot, limited to breakdown of skin (HC) Adhesive Tape (Paper Apply topically 4 Each 5 06/18/20 Active Tape) 1 X 10 -yard to affected 21 tapeIndications: area(s). Ulcer of right foot, limited to breakdown of skin (HC) tacrolimus (PROGRAF) Take 1 mg by 0 Active 1 mg capsule mouth every morning. tacrolimus (PROGRAF) Take 0.5 mg by 0 Active 0.5 mg capsule mouth once daily in the evening. insulin lispro Inject 15-20 0 09/30/19 Ac tive (HUMALOG; ADMELOG) units 22 100 unit/mL subcutaneous 3 injection times daily before meals. insulin glargine, Inject 25-40 0 09/30/19 Active U-100, 100 unit/mL units 22 (3 mL) subcutaneous at penIndications: Type bedtime. 2 diabetes mellitus with complication, with long-term current use of insulin (HC) durable medical Extra depth 1 Each 0 01/06/20 Ac tive equipment diabetic shoes, 22 (DME)Indications: 3 pair tri layer Diabetic foot (HC), accommodative Peripheral inserts polyneuropathy, Charcot's joint of right foot tamsulosin (FLOMAX) Take 0.4 mg by 0 11/03/19 Active 0.4 mg capsule mouth at 22 bedtime. carvediloL (COREG) Take 12.5 mg by 0 Active 12.5 mg tablet mouth 2 times daily with meals. guaiFENesin Take 600 mg by 0 Act jo (MUCINEX) 600 mg mouth 2 times Extended-Release daily if needed tablet for Expectoration. sodium chloride Inhale 2 Sprays 45 mL 0 06/05/20 Active (OCEAN) 0.65 % nasal into affected 22 solutionIndications: nostril(s) 4 Post-nasal drainage times daily if needed for Nasal Congestion. pantoprazole Take 1 Tablet 60 Tablet 0 06/20/20 Act jo (PROTONIX) 40 mg (40 mg) by mouth delayed-release two times daily. tabletIndications: Gastrointestinal hemorrhage, unspecified gastrointestinal hemorrhage type amLODIPine (NORVASC) Take 1 Tablet (5 60 Tablet 0 06/20/20 Active 5 mg mg) by mouth two tabletIndications: times daily. Hypertension albuterol HFA Inhale 2 Puffs 1 Each 0 06/20/20 A ctive (PRO-AIR; VENTOLIN; by mouth every 4 PROVENTIL) 90 hours if needed mcg/actuation for Wheezing 1st inhalerIndications: choice. Cough in adult benzonatate Take 1 Capsule 21 Capsule 0 06/20/20 Ac tive (TESSALON) 100 mg (100 mg) by capsuleIndications: mouth 3 times Cough in adult daily if needed for Cough for up to 7 days. warfarinIndications: As directed 5 mg 7 Each 0 06/20/20 Active Chronic atrial once daily. 22 fibrillation (HC) losartan (COZAAR) TAKE ONE TABLET 90 tablet 0 08/06/20 Discontinued 100 mg BY MOUTH EVERY (*IP tabletIndications: DAY D iscontinued) Hypertension aspirin (ECOTRIN) 81 Take 1 Tablet 0 09/29/1906/20 Discontinued mg enteric coated (81 mg) by mouth (*IP tabletIndications: once daily with Discontinued) HTN (hypertension) a meal. amLODIPine (NORVASC) Take 5 mg by 0 04/27/20 Discontinued 5 mg tablet mouth once (*IP daily. Discontinu ed) HumaLOG KwikPen PER SLIDING 0 10/31/19 Di scontinued Insulin 100 unit/mL SCALE; IF BLOOD (Pharmacist inpn pen SUGAR IS 150 change per -199 GIVE 2 medicati on UNITS. IF BLOOD hist ory SUGAR IS 200 - (E-ca ncel not 249, GIVE 4 sent)) UNITS. IF BLOOD SUGAR IS 250-299, GIVE 5 UNI cefuroxime axetil Take 1 Tablet 12 Tablet 0 06/05/20 (CEFTIN) 500 mg (500 mg) by 22 022 tabletIndications: mouth two times lower respiratory daily for 6 infection, urinary days. tract infection dexAMETHasone Take 1 Tablet (6 7 Tablet 0 06/06/20 (DECADRON) 6 mg mg) by mouth 022 tabletIndications: once daily with Pneumonia due to a meal for 7 COVID-19 virus days. warfarinIndications: As directed. 7 Each 0 06/20/20 Discontinued Chronic atrial (Reor toribio fibrillation (HC) (E -cancel not sent)) Active Problems Problem Noted Date Pneumonia due to COVID-19 virus 06/15/2022 Acute hypoxemic respiratory failure due to COVID-19 Morbid obesity 06/15/2022 Insulin dependent diabetes mellitus type IA 06/15/2022 Hypertension 06/15/2022 Renal transplant, status post 06/15/2022 CKD (chronic kidney disease) 06/15/2022 Pancreatic lesion 06/15/2022 Thyroid nodule 06/15/2022 Atrial fibrillation 06/15/2022 Pneumonia due to COVID-19 virus 06/02/2022 Acute respiratory distress 06/02/2022 History of renal transplant 06/02/2022 Pneumonia of right lower lobe due to infectious organi sm 06/02/2022 Acute kidney injury 01/11/2022 Urinary tract infection [...] Encounters Date Type Specialty Care Team Description 06/18/2022 Travel 06/15/2022 - Hospital Encounter Corie, Amir Acute hyp oxemic respiratory failure due to COVID-19 (HC) (Primary Dx); 06/20/2022 Ali, DO Chronic atrial fibrillation (HC); Larry Casas Gastrointestina l hemorrhage, unspecified gastrointestinal hemorrhage type; DAVID Denton Hypertension; Arnoldo Gregory Cough in adult Vivek Shepard Discharge Summary - Arnoldo Gregory MBChB - 06/20/2022 8:17 AM CDT Images from the original not e were not included. HOSPITAL DISCHARGE SUMMARY Patient Name: Diego Guthrie Date of : 1950 Age: 72 y.o. [address] Primary Physician: Momo Forbes MD Admission Date: 06/15/2022 Discharge Date: 06/20/2022 He will be discharged from [facility] to home. 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 male who was transferred from [facility] after initially presenting there on June 14, 2022 with chief complaint of dyspnea. The patient indicates that his dyspnea started a few weeks prior t o hospital ablation. He admits to onset of cough which is nonproductive as well as wheeze. He denies fever, rigors, nausea, vomiting, abdominal pain, diarrhea, myalgia, chest pain, a no dyspnea, dysgeus ia, headache, peripheral edema. At outside hospital he was found to be positive for COVID-19 19 the chest x-ray appears to corroborate this as well. He was admitted and started on Dexamethazo ne and Baracitinib. He gradually improved and his O2 sat remained above 94% on RA and was deemed stable per PT/OT for home DC. He was anxious to go home. On DC he denied CP,S OB,Cough,GI or symptoms. During hospitalization he was taken off Losartan gi isael concern of elevated creatinine and Amlodipine was increased to 5 mg BID. His BP was under control . He will follow up with PCP following DC and may resume ARB on the disc retion of the PCP.He was sta rted on Warfarin for A Fib and he weill need close monitoring of INR and adjust Warfarin to keep INR 2-2.5 . To minimize risk of bleeding ASA was held on DC but may resume ASA on the discretion of the PCP. He had hemoccult positive stool but HB remain ed stable. He was DC on Pantoprazole. PROCEDURES PERFORMED DURING HOSPITALIZATION: None COMPLICATIONS IN HOSPITAL: N A PERTINENT FINDINGS/RESULTS A T DISCHARGE: BP 149/82 (Cuff Size: Adult Large) Pulse 58 Temp 97.7 ??F (36.5 ??C) Resp 20 Ht 1.829 m (6') Wt 131 kg (288 lb 12.8 oz) SpO2 96% BMI 39.17 kg/m?? No data found. NA Latest Laboratory Results: Chem: Recent Labs 06/20/22 0544 06/19/22 05 SODIUM 138 139 POTASSIUM 4.3 4.3 CREATININE 2.01 H 2.05 H WBC/Hgb: Recent Labs 06/20/2244 06/19/22 05 WBC 6.4 6.9 HGB 12.5 L 12.5 L INR: Recent Labs 06/20/22 0544 06/19/22 0552 06/18/22 0615 06/15/22 1658 INR 1.8 H 1.3 H 1.2 1.2 IMPORTANT PENDING TEST RESUL TS: Lab results that may not be resulted at time of discharge: (From admission through now) None CONDITION AT DISCHARGE: Stab le DISCHARGE ORDERS Your Home Medicines START taking these medicines Instructions albuterol HFA 90 mcg/actuati on inhaler For diagnoses: Cough in adul t Commonly known as: PRO-AIR; VENTOLIN; PROVENTIL Inhale 2 Puffs by mouth tamara ry 4 hours if needed for Wheezing 1st choice. benzonatate 100 mg capsule For diagnoses: Cough in adul t Commonly known as: TESSALON Take 1 Capsule (100 mg) by mouth 3 times daily if needed for Cough for up to 7 days. pantoprazole 40 mg delayed-r elease tablet For diagnoses: Gastrointesti nal hemorrhage, unspecified gastrointestinal hemorrhage type Commonly known as: PROTONIX Take 1 Tablet (40 mg) by mo uth two times daily. warfarin For diagnoses: Chronic atria l fibrillation As directed. CHANGE how you take these me dicines Instructions amLODIPine 5 mg tablet For diagnoses: Hypertension What changed: when to take t his Commonly known as: NORVASC Take 1 Tablet (5 mg) by kwabena th two times daily. TAKE THE MEDICINE(S) PRES CRIBED BELOW. The provider has reviewed how you said you take these medicine(s) and wants you to take them as prescribed, not as how you reported taking them. Instructions gabapentin 300 mg capsule For diagnoses: PERIPHERAL NE UROPATHY Commonly known as: NEURONTIN Take 1 capsule by mouth 3 t imes daily. Indications: neuropathic pain CONTINUE taking these medici beverly Instructions Adhesive Tape 1 X 10 -yard Tape For diagnoses: Ulcer of righ t foot, limited to breakdown of skin Commonly known as: Paper Tap e Apply topically to affected area(s). carvediloL 12.5 mg tablet Commonly known as: COREG Take 12.5 mg by mouth 2 selvin es daily with meals. * durable medical equipment For diagnoses: CHARCOT FOOT, PERIPHERAL NEUROPATHY, Status post below knee amputation, unspecified laterality (HC), Type 2 diabetes mellitus with diabetic nephropathy, with long-term current use of insulin (HC) Commonly known as: DME Custom [place] boot to control charcot midfoot instability * durable medical equipment For diagnoses: Diabetic foot (HC), Peripheral polyneuropathy, Charcot's joint of right foot Commonly known as: DME Extra depth diabetic shoes, 3 pair tri layer accommodative inserts * durable medical equipment For diagnoses: Ulcer of righ t foot, limited to breakdown of skin Commonly known as: DME Modify shoe/insert so that there is not pressure at the ulceration sites. * durable medical equipment For diagnoses: Diabetic foot (HC), Peripheral polyneuropathy, Charcot's joint of right foot Commonly known as: DME Extra depth diabetic shoes, 3 pair tri layer accommodative inserts escitalopram oxalate 20 mg t ablet Commonly known as: LEXAPRO Take 20 mg by mouth once da robert. * Gauze Bandage 4 X 4 For diagnoses: Ulcer of righ t foot, limited to breakdown of skin For home use. * Shalom Flexible Gauze 4 X 2 .5 -yard Bndg For diagnoses: Ulcer of righ t foot, limited to breakdown of skin Generic drug: gauze bandage Apply topically to affected area(s). guaiFENesin 600 mg Extended- Release tablet Commonly known as: MUCINEX Take 600 mg by mouth 2 time s daily if needed for Expectoration. insulin glargine (U-100) 100 unit/mL (3 mL) pen For diagnoses: Type 2 diabet es mellitus with complication, with long-term current use of insulin (HC) Inject 25-40 units subcutan eous at bedtime. insulin lispro 100 unit/mL i njection Commonly known as: HUMALOG; ADMELOG Inject 15-20 units subcutan eous 3 times daily before meals. miscellaneous medical supply Misc For diagnoses: Diabetic foot infection (HC) As directed. KCI wound VAC Setting 125mmHg placed 09/19/20 - Yeimi to use Medela [facility] at [facility] Right foot wound debridement with application of integra bilayer matrix and wound va c, 10.0 cm x 5.0 cm x 0.6 cm . M- W-F dressing changes mycophenolate 250 mg capsule For diagnoses: -dono r kidney transplant recipient Commonly known as: CellCept Take 3 capsules by mouth ev rosa maria 12 hours. rosuvastatin 10 mg tablet For diagnoses: Hyperlipidemi a, unspecified hyperlipidemia type Commonly known as: CRESTOR TAKE ONE TABLET BY MOUTH EV ROSA MARIA DAY AT BEDTIME sodium chloride 0.65 % nasal solution For diagnoses: Post-nasal dr dyson Commonly known as: JOVANNA Inhale 2 Sprays into affect ed nostril(s) 4 times daily if needed for Nasal Congestion. * tacrolimus 1 mg capsule Commonly known as: PROGRAF Take 1 mg by mouth every mo rning. * tacrolimus 0.5 mg capsule Commonly known as: PROGRAF Take 0.5 mg by mouth once d aily in the evening. tamsulosin 0.4 mg capsule Commonly known as: FLOMAX Take 0.4 mg by mouth at bed time. * This list has 8 medicatio n(s) that are the same as other medications prescribed for you. Read the directions carefully, and ask your doctor or other care provider to review them with you. STOP taking these medicines aspirin 81 mg enteric coated tablet Commonly known as: ECOTRIN losartan 100 mg tablet Commonly known as: COZAAR Where to get your medicines These medications were sent to [facility] [address] [facility] [address] [facility] [id number] ?? albuterol HFA 90 mcg/actu ation inhaler ?? amLODIPine 5 mg tablet ?? benzonatate 100 mg capsul e ?? pantoprazole 40 mg delaye d-release tablet You have received printed pr escription(s) for these medicines or supplies. Take these to your preferred pharmacy. Bring a paper prescription f or each of these medications ?? warfarin After Discharge Orders and I nstructions AMB CONSULT TO HOME half-way Health Certification/F dharmesh to Face Attestation: I certify that this patient is confined to his/her home and needs intermittent fdc care, physical therapy and/or speech therapy or continues to need occupational therapy. A plan of care has been established and will be reviewed periodically by a physician or allowed practitioner. Services will be furnished while the patient is under the care of a physician or allowed practitioner. The beni ent had a [id number] encou nter with a physician or an allowed non-physician practitioner and the encounter was related to the primary reason for home health. Date of the Face to Face Enc ounter: 06/18/22, start of care 06/24/22 Based on my findings, review of the medical records, and/or collaboration with the other providers, the following services are medically necessary home health services: Physical Therapy This patient is confined to his/her home because: There is a taxing effort to leave the home due to weakness Patient requires the assista nce of a walker in order to leave the home. Provider following for home care services: Momo Forbes MD Electronically signed, Dr Gregory 06/18/2022 After Hospital Follow Up Ap pointment(s) Please follow up with the [facility] in [place] on June 22 at 10:50 with Alexandria Banuelos. Meals on Wheels [place] [phone] You have been referred to [place] with [facility] ( ) . Please call them if they have not reached out to you within 3 business days after discharge. When to follow up: 1 to 5 d ays When is patient being disch arged?: Today Consistent Carbohydrate and Cardiac Diet: Consistent Carbohydrate t: Your body struggles to change carbohydrates into energy. Carbohydrates are milks, fruits, starches (such as bread, cereal, potatoes and pasta); peas and corn; and sweets a nd desserts. Eat these foods in moderation. Tips for health: - Eat balanced meals with f ruits, vegetables, starches, meats and milk products. - Limit foods high in calori es like cake, candy, cookies, pie and regular soda. - Choose sugar-free beverage s. - Build a plate that is one- half vegetables, one-quarter starch, and one- quarter meat or other protein source. Consider fruit for dessert. - Choose foods that have fib er, such as whole grains. - Eat healthful fats such as olive oil or canola oil. You should choose items that are low in fat and cholesterol: - fat free dairy products - grains, fruits, fruit juic es, and vegetables made without added fat - lean protein sources, such as chicken and fish You should limit: - fats and oils to 3 teaspoo ns each day. Fats and oils include mayonnaise, salad dressings, non-dairy creamer, olives, avocados, butter, margarine, and cooking oils. Low Sodium Diet: Eat a diet that is low in so dium (salt). Remove the salt shaker. Do not have it on the table when you are eating, or in the kitchen when you are cooking. Do not eat: seasoned salts, pickles, olives, salted soups and snacks, regular cold cuts and cheeses, regular TV dinners. Learn to read food labels: - low sodium is 140 mg or le ss per serving - beware of foods with 400 - 600 mg sodium per serving. Eat fresh fruits, vegetables, and meats. Primary Care Provider scarlett w up appointment(s) Momo Forbes MD [facility] follow up May resume ARB med if renal function stable and on the recommendation of the PCP Monitor BP and renal functio n When to follow up: 1 to 5 d ays Recommendations for outpati ent provider Monitor electrolytes and re nal function. May resume ARB if renal function stable . Follow up on the BS and BP. Monitor for any respiratory distress Renal/Dialysis Diet Renal/Dialysis Diet: Choose foods that support yo ur dialysis treatment - Avoid bananas, oranges, to matoes, melons and potatoes - Limit all dairy foods to ? ? cup or 4 ounces each day - Include a protein source w ith each meal. Best sources are: beef, pork, fish, chicken, turkey or eggs - Do not add salt to your fo od. Try herb and spice blends such as MrsGeneva Cruz??. Limit foods canned and processed with salt. Choose fresh or frozen foods when you can. Up as tolerated It is important to slowly r eturn to your regular level of activity. Start with 5-10 minutes at one time and slowly build to 30 minutes at one time. Save your energy by spreading out activities that make you tired. Rest as needed. When should you be concerne d? Your health care provider i s: Momo Forbes MD Please call your health care provider if: - you feel you are getting w orse or having an increase in problems - fever greater than 101 deg tori - increasing shortness of br eath - any signs of infection (in creasing redness, swelling, tenderness, warmth, change in appearance, or increased drainage) - blood in your urine or sto ol - coughing or vomiting blood - nausea (upset stomach) and vomiting and/or diarrhea that will not stop - severe pain that is not re lieved by medicine, rest or ice Call 911 if you feel you are having a medical emergency. [facility] You were in the hospital fo r COVID-19 Medical issues requiring fol low up per PCP following discharge Acute hypoxic respiratory fa ilure on admission likely secondary to COVID-19 pneumonia improving Continue to wean off oxygen as able Continue pulmonary lavage wi th nebs treatment Recieved dexamethasone and b aricitinib during hospitalization . DC on DC since his O2 sat remained above 94% on RA. Continue airborne precaution s for 21 days from onset of symptoms as recommended per CDC Lower extremity Doppler nega tive for DVT Unable to obtain CTA chest b ecause of impaired renal function. ??Unable to obtain VQ scan of the lungs being unavailable Started Warfarin will target INR 2-2.5 ##Continue Warfarin on DC Paroxysmal atrial fibrillati on Not currently anticoagulated because of a concern of thrombocytopenia and Hemoccult positive stool CHADS2 score 3??,??started t he patient on warfarin ??##Continue Warfarin on DC and follow up with PCP to monitor INR and adjust dose accordingly Hemoccult positive stool on admission Hemoglobin remained stable. Continue PPI on DC Held ASA on DC since started on Warfarin ##Follow up with PCP to jamia tor HB level and consider GI consult if had recurrent GIB?? Insulin-dependent diabetes m ellitus Per patient is on diabetic m edication regimen consists of Lantus 40 units daily at bedtime, Premeal NovoLog 15 units 3 times daily AC & sliding scale insulin. -?Resumed home regimen on DC and follow up with PCP?? Chronic kidney disease a sta tus post renal transplant Resumed home med except for Losartan given creatinine creeping up. May resume Losartan on the discretion of PCP and Nephrology ??Hypertension Resumed home dose of Coreg Increased dose of Amlodipine to 5 mg BID Held Losartan on DC as above Follow up per PCP and Nephro logy recommendation?? Morbid obesity: Patient counseled on dietary and lifestyle modifications. ??Thyroid nodule: 1.4 cm left thyroid nodule. ??Patient will need to schedule thyroid ultrasound on an outpatient basis with his primary care physician or with a provider and check thyroid function test?? Pancreatic lesion 1.7 cm pancreatic uncinate 8 process lesion. ??Patient status post endoscopy with biopsy February 05, 2021. ??Outpatient follow-up with gastroenterology upon discharge if the patient still be monitored for this condition ??Hyperparathyroidism: Parathyroid hormone elevated at 489, patient will need outpatient follow-up. ?? 06/15/2022 Travel 06/14/2022 - Emergency Rosenda Blancas Hypoxia ( Primary Dx); 06/15/2022 MD Yi COVID-19 06/14/2022 Travel 06/01/2022 - Hospital Encounter Cayetano Shay Pneumon ia due to COVID-19 virus (Primary Dx); 06/05/2022 MD Momo Hypoxia; Víctor Schuler Chronic kidney disease, unspecified CKD stage; DO Sara Urinary tract infection without hematuri a, site unspecified; Cielo Weaver Cough, u nspecified type; L, APPLICATIONS ADMINISTRATOR Chronic atrial fibrillation (HC); Giovanni Lara, Pneumon ia of right lower lobe due to infectious organism; History of dasha l transplant; Post-nasal ai nagsantino Discharge Summary - Víctor Schuler DO - 06/05/2022 10:47 AM CDT Images from the original not e were not included. HOSPITALIST DISCHARGE SUMMAR Y ? ? [facility] Admission Date: 06/01/2022 Discharge Date: 06/05/2022 Discharge Plan: Diego Bryson agee was discharged to home. Principal Diagnosis Pneumonia due to COVID-19 vi [facility] Hospital Problem List Principal Problem: Pneumonia due to COVID-19 v irus Active Problems: Type 2 diabetes mellitus wi th diabetic nephropathy (HC) Major depressive disorder, recurrent episode, moderate (HC) Morbid obesity (HC) HTN, kidney transplant rela moni Immunosuppression (HC) Urinary tract infection Pressure injury of buttock, stage 2 (HC) Permanent atrial fibrillati on (HC) Acute respiratory distress History of renal transplant Pneumonia of right lower lo be due to infectious organism ADDITIONAL COMMENTS REGARDIN G DIAGNOSIS SPECIFICITY Additional Diagnosis Informa tion ? BMI>40, which is consiste nt with MORBID OBESITY. This is clinically significant due to increased nursing cares, use of resources and specialty equipment. Hospital Course Diego CUNNINGHAM is a 72 y.o. mal e with a past medical history of uncontrolled type 2 diabetes mellitus, status post left BKA, end-stage renal disease status post renal transplant in 2013 at the [facility] on CellCept and Prograf who presents with chief complaint of of cough and shortness of breath. He was admitted for COVID with concern for RLL bacterial pneumonia and UTI in the setting of immunocompromise from renal transplant meds. ?? In the ED his temperature wa s 99.9 ??F, blood pressure 169/73, heart rate 80, respiratory rate 26, O2 saturation 70% on room air which eventually improved to 95% after being placed on 3 L via nasal keesha cyril. BMP was significant for bicarb of 18, anion gap 13, glucose 238, BUN 28, creatinine 2.47 lactate was 2.2 and improved to 1.0 after administration of IV fluids. CBC revealed a white blood cell count 3.6, hemoglobin 10.5, hemat ocrit 34, platelet count 82. Troponin was 0.012, BNP 601. Liver panel was unremarkable. Urinalysis revealed small amount of occult blood, positive nitrate, moderate leukocyte esterase, 3-5 WBCs, many ba cteria, and the presence of white cell clumps. Procalcitonin was 0.13. Chest x-ray showed low lung volumes, new patchy opacity at the right lung base atelectasis versus infec tion, no effusion or pneumot horax or other injury thoracic acute abnormality. EKG revealed atrial fibrillation with controlled ventricular rate. He was given 15 cc/kg of nor mal saline, duo nebs, dexamethasone, and ceftriaxone, which was changed to cefuroxime with urine culture sensitivities as he improved. He was weaned off O2 and improved. He w as not able to be given mono clonal antibodies requested by his transplant team because he is inpatient per [facility]'s policy given the EUA stipulations. He did not qualify for remdesivir given his low GFR. Discussed his plan with his transplant team, will resume his cellcept for discharge that was held while acutely ill here and continue with the decadron and antibiotics through next week. His transplant team will contact him on Tue to set up a follow up visit. Recommendations for Outpatie nt Provider ? ? PCP: Momo Forbes MD Recommendations for outpati ent provider Specific recommendations to be addressed at the follow up visit - Follow up breathing status, transplant coordination visit, sacral area stage 2 pressure ulcer. Reason(s) medications were s topped or changed - Ceftin for bladder and lung infections. Decadron for COVID-19. Anticoagulation/Oxygen Recom mendations - None Tests and Studies needed - None except per transplant t eam protocol Discharge Medications Your Home Medicines START taking these medicines Instructions cefuroxime axetil 500 mg tab let For diagnoses: Urinary tract infection without hematuria, site unspecified, Pneumonia of right lower lobe due to infectious organism, History of renal transplant Commonly known as: CEFTIN Take 1 Tablet (500 mg) by m outh two times daily for 6 days. dexAMETHasone 6 mg tablet For diagnoses: Pneumonia due to COVID-19 virus Start taking on: June 06, 2022 Commonly known as: DECADRON Take 1 Tablet (6 mg) by kwabena th once daily with a meal for 7 days. sodium chloride 0.65 % nasal solution For diagnoses: Post-nasal dr dyson Commonly known as: JOVANNA Inhale 2 Sprays into affect ed nostril(s) 4 times daily if needed for Nasal Congestion. TAKE THE MEDICINE(S) PRES CRIBED BELOW. The provider has reviewed how you said you take these medicine(s) and wants you to take them as prescribed, not as how you reported taking them. Instructions gabapentin 300 mg capsule For diagnoses: PERIPHERAL NE UROPATHY Commonly known as: NEURONTIN Take 1 capsule by mouth 3 t imes daily. Indications: neuropathic pain CONTINUE taking these medici beverly Instructions Adhesive Tape 1 X 10 -yard Tape For diagnoses: Ulcer of righ t foot, limited to breakdown of skin Commonly known as: Paper Tap e Apply topically to affected area(s). amLODIPine 5 mg tablet Commonly known as: NORVASC Take 5 mg by mouth once yana ly. aspirin 81 mg enteric coated tablet For diagnoses: HTN (hyperten rafat) Commonly known as: ECOTRIN Take 1 Tablet (81 mg) by mo uth once daily with a meal. carvediloL 12.5 mg tablet Commonly known as: COREG Take 12.5 mg by mouth 2 selvin es daily with meals. * durable medical equipment For diagnoses: CHARCOT FOOT, PERIPHERAL NEUROPATHY, Status post below knee amputation, unspecified laterality (HC), Type 2 diabetes mellitus with diabetic nephropathy, with long-term current use of insulin (HC) Commonly known as: DME Custom [place] boot to control charcot midfoot instability * durable medical equipment For diagnoses: Diabetic foot (HC), Peripheral polyneuropathy, Charcot's joint of right foot Commonly known as: DME Extra depth diabetic shoes, 3 pair tri layer accommodative inserts * durable medical equipment For diagnoses: Ulcer of righ t foot, limited to breakdown of skin Commonly known as: DME Modify shoe/insert so that there is not pressure at the ulceration sites. * durable medical equipment For diagnoses: Diabetic foot (HC), Peripheral polyneuropathy, Charcot's joint of right foot Commonly known as: DME Extra depth diabetic shoes, 3 pair tri layer accommodative inserts escitalopram oxalate 20 mg t ablet Commonly known as: LEXAPRO Take 20 mg by mouth once da robert. * Gauze Bandage 4 X 4 For diagnoses: Ulcer of righ t foot, limited to breakdown of skin For home use. * Shalom Flexible Gauze 4 X 2 .5 -yard Bndg For diagnoses: Ulcer of righ t foot, limited to breakdown of skin Generic drug: gauze bandage Apply topically to affected area(s). guaiFENesin 600 mg Extended- Release tablet Commonly known as: MUCINEX Take 600 mg by mouth 2 time s daily if needed for Expectoration. insulin glargine (U-100) 100 unit/mL (3 mL) pen For diagnoses: Type 2 diabet es mellitus with complication, with long-term current use of insulin (HC) Inject 25-40 units subcutan eous at bedtime. insulin lispro 100 unit/mL i njection Commonly known as: HUMALOG; ADMELOG Inject 15-20 units subcutan eous 3 times daily before meals. losartan 100 mg tablet For diagnoses: Hypertension Commonly known as: COZAAR TAKE ONE TABLET BY MOUTH EV ROSA MARIA DAY miscellaneous medical supply Misc For diagnoses: Diabetic foot infection (HC) As directed. KCI wound VAC Setting 125mmHg placed 09/19/20 - Yeimi to use Medela Wound Vac at [facility] Right foot wound debridement with application of integra bilayer matrix and wound va c, 10.0 cm x 5.0 cm x 0.6 cm . M- W-F dressing changes mycophenolate 250 mg capsule For diagnoses: -dono r kidney transplant recipient Commonly known as: CellCept Take 3 capsules by mouth ev rosa maria 12 hours. rosuvastatin 10 mg tablet For diagnoses: Hyperlipidemi a, unspecified hyperlipidemia type Commonly known as: CRESTOR TAKE ONE TABLET BY MOUTH EV ROSA MARIA DAY AT BEDTIME * tacrolimus 1 mg capsule Commonly known as: PROGRAF Take 1 mg by mouth every mo rning. * tacrolimus 0.5 mg capsule Commonly known as: PROGRAF Take 0.5 mg by mouth once d aily in the evening. tamsulosin 0.4 mg capsule Commonly known as: FLOMAX Take 0.4 mg by mouth at bed time. * This list has 8 medicatio n(s) that are the same as other medications prescribed for you. Read the directions carefully, and ask your doctor or other care provider to review them with you. Where to get your medicines [facility] [address] [address] ?? cefuroxime axetil 500 mg tablet ?? dexAMETHasone 6 mg tablet Pertinent Findings / Procedu res First weight: (!) 148.5 kg ( 327 lb 6.4 oz) (Weighed with prostetic leg on - prostetic leg adds 20 lbs) (06/01/22 8815) Last weight: (!) 148.4 kg (327 lb 3.2 oz) (06/02/22 0415) EXAM: Diego is alert, no acu te distress. Affect appropriate. Oropharynx pink and moist, no adenopathy. Heart RRR without murmur. Lungs clear to auscultation. Abdomen soft, nontender, bowel sounds presen t. Extremities without clubb ing, cyanosis, or edema, left BKA. Brisk capillary refill. Labs Recent Labs 06/04/22 0847 06/03/22 0547 06/02/22 0610 WBC 7.2 4.3 L 2.8 L RBC 4.23 L 3.83 L 3.69 L HGB 11.5 L 10.2 L 9.9 L HCT 36.2 L 33.5 L 32.7 L MCV 86 88 89 MCH 27.2 26.6 26.8 MCHC 31.8 L 30.4 L 30.3 L PLT 89 L 74 L 72 L MPV 11.2 H 10.9 11.4 H Recent Labs 06/05/22 0547 06/04/22 0847 06/03/22 0547 SODIUM -- 140 139 POTASSIUM 4.0 4.3 4.7 CHLORIDE -- 110 112 H AT4IYSBO -- BUN -- 42 H 36 H CREATININE 2.23 H 2.34 H 2.4 5 H GLUCOSE -- 172 H 215 H CALCIUM -- 9.5 9.1 Recent Labs 06/02/22 0025 ALKPHOSPH 95 PROTEIN 6.4 BILITOTAL 1.6 H AST 8 ALT 8 Recent Labs 06/02/22 0025 CREACTPROT 1.36 H Recent Labs 06/03/22 0547 06/02/22 0610 06/02/22 0024 INR -- -- 1.4 H DDIMER 0.96 1.10 -- Recent Labs 06/04/22 0847 06/03/22 0547 06/02/22 0025 BNP 266 H 435 H 601 H TROPONINI -- -- 0.012 Recent Labs 06/05/22 0821 06/04/22 2101 06/04/22 1825 06/04/22 1737 06/04/22 1138 06/04/22 0849 06/03/22 2216 06/03/22 1811 06/03/22 1247 06/03/22 0850 GLUCOSEMETER 258 H 212 H 194 H 204 H 175 H 171 H 307 H 244 H 283 H 230 H Recent Labs 06/02/22 0045 COLOR Yellow CLARITY Clear SPECGRAV 1.020 PHURINE 6.0 UROBILINOGEN Normal PROTEINUA 100 A Recent Labs 06/02/22 0045 GLUCOSEUA 100 A KETONESUA Negative BILIURINE Negative BLOODUA Small A NITRITE Positive A LEUKOCYTE Moderate A Micro Microbiology Results (72 CAIO RS) Procedure Component Value U nits Date/Time URINE CULTURE [[id number]] (Abnormal) (Susceptibility) Collected: 06/02/2244 Lab Status: Final result Sp ecimen: Urine Updated: 06/04/22758 CULTURE RESULT >100,000 CFU/mL Escherichia coli <10,000 CFU/mL Multiple org anisms probable contaminants Susceptibility Escherichia coli Not Specified AMPICILLIN <=2 S AMPICILLIN/SULBACTAM <=2 S CEFAZOLIN-UC <=4 S [1] CEFEPIME <=1 S CEFTAZIDIME <=1 S CEFTRIAXONE <=1 S CIPROFLOXACIN <=0.25 S GENTAMICIN <=1 S LEVOFLOXACIN <=0.12 S MEROPENEM <=0.25 S NITROFURANTOIN <=16 S PIPERACILLIN/TAZO <=4 S TOBRAMYCIN <=1 S TRIMETHOPRIM/SULF <=1/19 S [1] Cefazolin-UC interpreta tions are for therapy of uncomplicated UTIs due to E.coli, K.pneumoniae, or P.mirablis. Linear View INFLUENZA A/B/H1N1 PCR [[id number]] (Normal) Collected: 06/02/2238 Lab Status: Final result Sp ecimen: Other from Nasopharyngeal Updated: 06/02/22122 INFLUENZA A PCR NOT Detecte d INFLUENZA B PCR NOT Detecte d COVID 19 [[id number]] (Abno rmal) Collected: 06/02/2238 Lab Status: Final result Sp ecimen: Other from Nasopharyngeal Updated: 06/02/22122 COVID 19 [employer] [facility] D etected Narrative: This test has been authoriz ed by FDA under an Emergency Use Authorization (EUA). This test is only authorized for the duration of time the declaration that circumstances exist justifying the authorizat ion of the emergency use of in vitro diagnostic tests for detection of SARS-CoV-2 virus and/or diagnosis of COVID-19 infection under section 564(b)(1) of the Act, 21 U.S.C. 360bbb-3(b) (1), unless the authorization is terminated or revoked sooner. BLOOD CULTURE X2 [[id number]] (Normal) Collected: 06/02/2224 Lab Status: Preliminary res ult Specimen: Blood Updated: 06/02/22506 CULTURE No growth to date. BLOOD CULTURE X2 [[id number]] (Normal) Collected: 06/02/2221 Lab Status: Preliminary res ult Specimen: Blood Updated: 06/02/22506 CULTURE No growth to date. Imaging XR CHEST 1 VIEW PORTABLE Result Date: 06/02/2022 For Patients: As a result of the Cures Act, medical imaging exams and procedure reports are released immediately into your electronic medical record. You may view this report before your re ferring provider. If you hav e questions, please contact your health care provider. Indication: Evaluate lung infiltrate Comparison: Single-view chest June 02, 2022 Technique: Single AP view chest Fin dings: There is hyperinflati on and chronic interstitial change. Overall there are stable interstitial and airspace opacities within the bilateral hemithoraces commensurate multifocal infiltrates and/or pulmonary edema. Stable card iac silhouette enlargement. The bony thorax is grossly intact. Impression: Overall, unchanged interstitial and airspace opacities commensurate with likely pulmonary edema and /or multifocal infiltrates. Dictated by Estevan Tubbs MD @ 06/02/2022 3:22:44 PM (Electronically Signed) XR CHEST 1 VIEW PORTABLE Result Date: 06/02/2022 For Patients: As a result of the Cures Act, medical imaging exams and procedure reports are released immediately into your electronic medical record. You may view this report before your re ferring provider. If you hav e questions, please contact your health care provider. Indication: Sepsis Technique: Chest 1 view Comparison: April 09, 2021 Findings/Impression: Low lung volumes. Stable ca rdiomediastinal silhouette. New patchy opacity at the right lung base may represent atelectasis or infection. No effusion or pneumothorax. No acute osseous abnormality. Dictated by Sharon Vela MD @ 06/02/2022 1:13:16 AM (Electronically Signed) EKG: EKG Results for the Hospital Encounter of 06/01/22 EKG 12 Lead Collection Time: 06/02/22 1 2:29 AM Result Value Interpretation Atrial fibrillation Nonspecific ST abnormality Abnormal ECG Ventricular Rate 79 P-R Interval QRS Duration 110 QT 362 QTc 415 R Anderson 26 [employer]ants None Curbside with his transplant team at the [facility]. Diet / Activity / Follow-Up After Discharge Orders and I nstructions COVID-19 Discharge Informat ion: Discharge instructions for COVID test positive You were tested for COVID-19 and your test result was positive. Additional Information When it is safe to return to work, school, or daycare: If you or others in your [facility] are working, please reach out to your Employer for further direction on work policies. For children who attend scho ol or day care, refer your child's school or day care policy for when its safe to return, You can also refer to the [facility] guidelines. Go to: [email or web address] ranulfoes/coronavirus/[email or web address]/[email or web address].pdf Call 911 if you have a medic al emergency: Notify the dispatch personnel of any symptoms, or if you have been tested, or are being evaluated for, COVID-19. If possible, put on a facemask. Emergency Warning Signs of C OVID-19 include, but are not limited to: Trouble breathing Persistent pain or pressure in the chest New confusion or inability t o stay alert Bluish lips or face Additional Resources: For more information relatin g to COVID-19 go to: Centers for Disease Control (CDC) - https://www.cdc.gov/coronavirus/2019-nCoV/index.html [facility] ([facility]) - [email or web address]./diseases/coronavirus/index.html For children who attend scho ol or day care, refer to the following [facility] guidelines: Go to: https://www.[facility]./diseases/coronavirus/schools/exguide.pdf [facility]'s website www.[facility].[place].[facility] and Positioning and Breathing Exercises Positioning: Changing positi ons frequently so you are not primarily lying on your back. Change your position every 2 hours, rotating between laying on your side / tummy / other side / sitting up can help with breathing. Breathing Exercises: Twice a day and increase to 4 - 6 times a day: Deep breathing exercises and Pursed lip breathing exercises. Every hour, perform 10 times: Incentive Spirometer or Blowing exercises. Deep breathing exercises: 1. Lie on your back in bed w ith a pillow under your head and knees. 2. Place one hand on your be lly. Place the other hand on your chest. 3. Slowly breathe in through your nose. Let your belly fill with air, feeling your belly rise. 4. Breathe out through your nose. As you breath out, feel your belly lower. 5. The hand on your belly sh ould move more than the one that's on your chest. 6. Repeat for 2 minutes, sev eral times a day. Pursed lip breathing exercis es: 1. Relax your neck and shoul toribio muscles. 2. Breath in for two seconds through your nose, keeping your mouth closed. 3. Breath out for four secon ds through pursed lips. If this is too long for you, simply breath out twice as long as you breath in. 4. Repeat for 2 minutes. Blowing exercises: If you were given an incenti ve spirometer, use it: 1. Sit straight on a chair o r the edge of your bed. 2. Breath out completely to clear all the air from your lungs. 3. Close your lips firmly ar ound the mouthpiece. You'll have to breath in only through your mouth. Plug your nose if you need to. 4. Breath in slowly and make the piston/ball rise as high as you can. Then hold your breath up to 5 seconds. 5. Repeat 10 times If you do not have an incent jo spirometer, buy a packet of balloons and practice blowing them up Caring for your wound or in cision Your wound or incision is l ocated on your sacral/buttock area. You will need to see your do ctor to have your wound or incision checked. Your wound or incision is co conchita with silicone foam dressing. To care for your wound or in cision dressing: Change the dressing every other day and as needed. To care for your wound or in cision: It is OK to get your incision or wound wet., Gently apply prescribed ointments or lotions, and Wash with mild antibacterial soap and water. Consistent Carbohydrate t: Your body struggles to martinez ge carbohydrates into energy. Carbohydrates are milks, fru its, starches (such as bread, cereal, potatoes and pasta); peas and corn; and sweets and desserts. Eat these foods in moderation. Tips for health: - eat balanced meals with fr uits, vegetables, starches, meats and milk products - limit foods high in calori es like cake, candy, cookies, pie and regular soda - choose sugar-free beverage s - build a plate that is one- half vegetables, one-quarter starch, and one- quarter meat or other protein source - consider fruit for dessert - choose foods that have fib er, such as whole grains - eat healthful fats such as olive oil or canola oil For your safety: If prescribed, use your can e, walker, or crutches as directed. Carry a phone ([employer] or [employer]) with you at all times in case of an emergency Reduce your chance of fallin g in your home by: - removing throw rugs - using a night light - clearing the path from you r bed to the bathroom. Moving around after dischar ge RESUME PREVIOUS ACTIVITY: - Rest is also an important part of healing. Slowly return to your regular level of activity. Save your energy by spreading out activities that make you tired. Rest as needed. - Get regular activity and t ry to walk for a total of 30 minutes per day. Start by walking for 5 to 10 minutes at one time and slowly build to walking for 30 minutes one time. - Remember to use your walki ng assist devices and to not sit in the same position for too long to prevent pressure sores. Primary Care Provider scarlett mcdaniel up appointment(s) Momo Forbes MD in 3-5 days. When to follow up: 1 to 5 d ays When is patient being disch arged?: Today Up as tolerated It is important to slowly r eturn to your regular level of activity. Start with 5-10 minutes at one time and slowly build to 30 minutes at one time. Save your energy by spreading out activities that make you tired. Rest as needed. When should you be concerne d? Your health care provider i s: Momo Forbes MD Please call your health care provider if: - you feel you are getting w orse or having an increase in problems - fever greater than 101 deg tori - increasing shortness of br eath - any signs of infection (in creasing redness, swelling, tenderness, warmth, change in appearance, or increased drainage) - blood in your urine or sto ol - coughing or vomiting blood - nausea (upset stomach) and vomiting and/or diarrhea that will not stop - severe pain that is not re lieved by medicine, rest or ice Call 911 if you feel you are having a medical emergency. [facility]? The reason(s) you were in [facility] is/are COVID pneumonia and a bladder infection. Pending Studies Lab results that may not be resulted at time of discharge: (From admission through now) Start Ordered 06/02/2214 BLOOD CULTURE X2 Q1MIN, STAT Start Priority Status 06/02/2214 STAT Prelimina ry result Details 06/02/2219 STAT Prelimina ry result Details 06/02/22 000 Total time spent on discharg e coordination: 33 minutes. Patient was seen and examined today. Víctor Schuler DO Hospitalist, [facility] ? ? [phone] Cc: [facility] Renal Transplant Team 06/01/2022 Travel 04/08/2022 Lab Requisition Unknown, Doctor from Last [...] Father CHF, ASCVD Mother (Age 70) Ervin Thurstoninsons Social History Tobacco Use Types Packs/Day Years [...] Exposure Response Date Recorded In the last 10 days, have you been in contact Unable to asse ss 06/18/2022 8:45 AM CDT with someone who was confirmed or suspected to have Coronavirus/COVID-19? Obstetrics History Last Filed Vital Signs Vital Sign Reading Time Taken Comments Blood Pressure 149/82 06/20/2022 7:00 AM CDT Pulse 51 06/20/2022 8:00 AM CDT Temperature 36.5 ??C (97.7 ??F) 06/20/2022 7:00 AM CDT Respiratory Rate 20 06/20/2022 7:00 AM CDT Oxygen Saturation 96% 06/20/2022 7:00 AM CDT Inhaled Oxygen Concentration - - Weight 131 kg (288 lb 12.8 oz) 06/15/2022 1:00 AM CDT Height 182.9 cm (6') 06/15/2022 1:00 AM CDT Body Mass Index 39.17 06/15/2022 1:00 AM CDT Plan of Treatment Upcoming Encounters Date Type Specialty Care Team Description 07/06/2022 Office Visit Angie Chatterjee, DAMIAN [address] [place] [address] (Wo rk) Health Maintenance Due Date Last Done Comments Tdap 1961 Zoster (shingles) series for age 0803/27/1969 50+ (1 of 2) Medicare Wellness for age 65+ 2015 Pneumococcal series for age 65+ (3 03/17/2017 03/17/2016, 0 05/05/2011 - PPSV23 if available, else PCV20) Depression screening for age 12+ 06/26/2019 06/26/2018, Colonoscopy through age 75 03/20/2020 03/20/2015, 5, 03/17/2012, Additional history exists COVID-19 vaccine series (4 - 11/17/2021 09/22/2021, 021, Booster for Moderna series) 10/21/2020 [...] Christoph 140/90 Medical Devices Implanted Type Area Unit Tender Device Shelf Model / Identifier Expiration Date Ser ial / Lot Drsg Wound 4x5in Matrix Bilayer Right: 08/21/2020 [id number] / Implanted: Qty: 1 on 09/23/2020 by Araceli Fowler DPM at [facility] / [id number] Description: DRSG WOUND 4X5IN MATRIX JYOTI BHAVIK Procedures Procedure Name Priority Date/Time Associated Comments Diagnosis SCAN 06/21/2022 12:00 Results for this CORRESP-DIAGNOSTICS AM CDT procedur e are in the results section. GLUCOSE METER Routine 06/20/2022 11:10 Results fo r this AM CDT procedure are i n the results section. GLUCOSE METER Routine 06/20/2022 7:52 AM Results for this CDT procedure are i n the results section. CBC WITH AUTO Early AM 06/20/2022 5:44 AM Results for this DIFFERENTIAL CDT procedure are i n the results section. BASIC METABOLIC PANEL Early AM 06/20/2022 5:44 AM Results for this CDT procedure are i n the results section. CBC WITH AUTO Early AM 06/20/2022 5:44 AM Results for this DIFFERENTIAL CDT procedure are i n the results section. PROTIME-INR Early AM 06/20/2022 5:44 AM Results f or this CDT procedure are i n the results section. GLUCOSE METER Routine 06/19/2022 9:15 PM Results for this CDT procedure are i n the results section. GLUCOSE METER Routine 06/19/2022 4:48 PM Results for this CDT procedure are i n the results section. GLUCOSE METER Routine 06/19/2022 3:11 PM Results for this CDT procedure are i n the results section. GLUCOSE METER Routine 06/19/2022 12:27 Results fo r this PM CDT procedure are i n the results section. GLUCOSE METER Routine 06/19/2022 8:05 AM Results for this CDT procedure are i n the results section. PROCALCITONIN JOVANNI 06/19/2022 5:52 AM Results for this CDT procedure are i n the results section. RED CELL MORPHOLOGY Timed 06/19/2022 5:52 AM Re sults for this CDT procedure are i n the results section. PLATELET ESTIMATE Timed 06/19/2022 5:52 AM Resu lts for this CDT procedure are i n the results section. CBC WITH AUTO Early AM 06/19/2022 5:52 AM Results for this DIFFERENTIAL CDT procedure are i n the results section. BASIC METABOLIC PANEL Early AM 06/19/2022 5:52 AM Results for this CDT procedure are i n the results section. CBC WITH AUTO Early AM 06/19/2022 5:52 AM Results for this DIFFERENTIAL CDT procedure are i n the results section. PROTIME-INR Early AM 06/19/2022 5:52 AM Results f or this CDT procedure are i n the results section. GLUCOSE METER Routine 06/18/2022 8:23 PM Results for this CDT procedure are i n the results section. GLUCOSE METER Routine 06/18/2022 5:22 PM Results for this CDT procedure are i n the results section. GLUCOSE METER Routine 06/18/2022 11:20 Results fo r this AM CDT procedure are i n the results section. XR CHEST 1 VIEW Routine 06/18/2022 9:15 AM Result s for this PORTABLE CDT procedure are i n the results section. GLUCOSE METER Routine 06/18/2022 8:22 AM Results for this CDT procedure are i n the results section. RED CELL MORPHOLOGY Timed 06/18/2022 6:15 AM Re sults for this CDT procedure are i n the results section. PLATELET ESTIMATE Timed 06/18/2022 6:15 AM Resu lts for this CDT procedure are i n the results section. CBC WITH AUTO Early AM 06/18/2022 6:15 AM Results for this DIFFERENTIAL CDT procedure are i n the results section. PROTIME-INR Early AM 06/18/2022 6:15 AM Results f or this CDT procedure are i n the results section. BASIC METABOLIC PANEL Early AM 06/18/2022 6:15 AM Results for this CDT procedure are i n the results section. CBC WITH AUTO Early AM 06/18/2022 6:15 AM Results for this DIFFERENTIAL CDT procedure are i n the results section. GLUCOSE METER Routine 06/17/2022 8:42 PM Results for this CDT procedure are i n the results section. GLUCOSE METER Routine 06/17/2022 4:24 PM Results for this CDT procedure are i n the results section. GLUCOSE METER Routine 06/17/2022 11:14 Results fo r this AM CDT procedure are i n the results section. GLUCOSE METER Routine 06/17/2022 7:07 AM Results for this CDT procedure are i n the results section. RED CELL MORPHOLOGY Timed 06/17/2022 6:25 AM Re sults for this CDT procedure are i n the results section. PLATELET ESTIMATE Timed 06/17/2022 6:25 AM Resu lts for this CDT procedure are i n the results section. CBC WITH AUTO Early AM 06/17/2022 6:25 AM Results for this DIFFERENTIAL CDT procedure are i n the results section. COMP METABOLIC PANEL Early AM 06/17/2022 6:25 AM R esults for this CDT procedure are i n the results section. MAGNESIUM Early AM 06/17/2022 6:25 AM Results f or this CDT procedure are i n the results section. CBC WITH AUTO Early AM 06/17/2022 6:25 AM Results for this DIFFERENTIAL CDT procedure are i n the results section. GLUCOSE METER Routine 06/16/2022 8:49 PM Results for this CDT procedure are i n the results section. ECHO COMPLETE WO JOVANNI 06/16/2022 4:09 PM Resul ts for this CONTRAST CDT procedure are i n the results section. GLUCOSE METER Routine 06/16/2022 4:06 PM Results for this CDT procedure are i n the results section. GLUCOSE METER Routine 06/16/2022 11:12 Results fo r this AM CDT procedure are i n the results section. GLUCOSE METER Routine 06/16/2022 7:40 AM Results for this CDT procedure are i n the results section. CBC WITH AUTO Early AM 06/16/2022 5:17 AM Results for this DIFFERENTIAL CDT procedure are i n the results section. MAGNESIUM Early AM 06/16/2022 5:17 AM Results f or this CDT procedure are i n the results section. PHOSPHORUS Early AM 06/16/2022 5:17 AM Results f or this CDT procedure are i n the results section. COMP METABOLIC PANEL Early AM 06/16/2022 5:17 AM R esults for this CDT procedure are i n the results section. CBC WITH AUTO Early AM 06/16/2022 5:17 AM Results for this DIFFERENTIAL CDT procedure are i n the results section. GLUCOSE METER Routine 06/16/2022 5:15 AM Results for this CDT procedure are i n the results section. GLUCOSE METER Routine 06/16/2022 4:03 AM Results for this CDT procedure are i n the results section. GLUCOSE METER Routine 06/16/2022 2:16 AM Results for this CDT procedure are i n the results section. GLUCOSE, RANDOM JOVANNI 06/15/2022 11:59 Results for this PM CDT procedure are i n the results section. APTT STAT 06/15/2022 11:59 Results for this PM CDT procedure are i n the results section. GLUCOSE METER Routine 06/15/2022 11:35 Results fo r this PM CDT procedure are i n the results section. OCCULT BLOOD IFOBT Today 06/15/2022 9:14 PM Res ults for this STOOL CDT procedure are i n the results section. GLUCOSE, RANDOM JOVANNI 06/15/2022 9:04 PM Result s for this CDT procedure are i n the results section. GLUCOSE METER Routine 06/15/2022 8:52 PM Results for this CDT procedure are i n the results section. RED CELL MORPHOLOGY JOVANNI 06/15/2022 4:58 PM Re sults for this CDT procedure are i n the results section. PLATELET ESTIMATE JOVANNI 06/15/2022 4:58 PM Resu lts for this CDT procedure are i n the results section. CREATININE JOVANNI 06/15/2022 4:58 PM Results f or this CDT procedure are i n the results section. BUN JOVANNI 06/15/2022 4:58 PM Results f or this CDT procedure are i n the results section. HEMATOCRIT JOVANNI 06/15/2022 4:58 PM Results f or this CDT procedure are i n the results section. HEMOGLOBIN JOVANNI 06/15/2022 4:58 PM Results f or this CDT procedure are i n the results section. PLATELET COUNT JOVANNI 06/15/2022 4:58 PM Results for this CDT procedure are i n the results section. APTT JOVANNI 06/15/2022 4:58 PM Results f or this CDT procedure are i n the results section. PROTIME-INR JOVANNI 06/15/2022 4:58 PM Results f or this CDT procedure are i n the results section. GLUCOSE, RANDOM JOVANNI 06/15/2022 4:58 PM Result s for this CDT procedure are i n the results section. GLUCOSE METER Routine 06/15/2022 4:30 PM Results for this CDT procedure are i n the results section. US VENOUS LOWER JOVANNI 06/15/2022 4:05 PM Result s for this EXTREMITY BILATERAL CDT procedur e are in the results section. D-DIMER,QUANTITATIVE STAT 06/15/2022 3:01 PM R esults for this CDT procedure are i n the results section. GLUCOSE, RANDOM JOVANNI 06/15/2022 11:35 Results for this AM CDT procedure are i n the results section. GLUCOSE METER Routine 06/15/2022 11:04 Results fo r this AM CDT procedure are i n the results section. GLUCOSE, RANDOM STAT 06/15/2022 7:31 AM Result s for this CDT procedure are i n the results section. XR CHEST 1 VIEW Routine 06/15/2022 7:25 AM Result s for this PORTABLE CDT procedure are i n the results section. GLUCOSE METER Routine 06/15/2022 7:05 AM Results for this CDT procedure are i n the results section. RED CELL MORPHOLOGY Timed 06/15/2022 5:46 AM Re sults for this CDT procedure are i n the results section. PLATELET ESTIMATE Timed 06/15/2022 5:46 AM Resu lts for this CDT procedure are i n the results section. CBC WITH AUTO Today 06/15/2022 5:46 AM Results for this DIFFERENTIAL CDT procedure are i n the results section. IRON PLUS IRON BINDING Today 06/15/2022 5:46 AM Results for this CAP CDT procedure are i n the results section. FERRITIN Today 06/15/2022 5:46 AM Results f or this CDT procedure are i n the results section. CBC WITH AUTO Today 06/15/2022 5:46 AM Results for this DIFFERENTIAL CDT procedure are i n the results section. PTH,INTACT Today 06/15/2022 5:46 AM Results f or this CDT procedure are i n the results section. PHOSPHORUS Today 06/15/2022 5:46 AM Results f or this CDT procedure are i n the results section. MAGNESIUM Today 06/15/2022 5:46 AM Results f or this CDT procedure are i n the results section. HEMOGLOBIN A1C Today 06/15/2022 1:45 AM Results for this CDT procedure are i n the results section. COMP METABOLIC PANEL Today 06/15/2022 1:45 AM R esults for this CDT procedure are i n the results section. DIFFERENTIAL Today 06/15/2022 1:45 AM Results f or this CDT procedure are i n the results section. HEMOGLOBIN Today 06/15/2022 1:45 AM Results f or this CDT procedure are i n the results section. WHITE BLOOD COUNT Today 06/15/2022 1:45 AM Resu lts for this CDT procedure are i n the results section. SCAN-CARDIAC STRIP 06/15/2022 12:00 Resul ts for this AM CDT procedure are i n the results section. SCAN-CARDIAC STRIP 06/15/2022 12:00 Resul ts for this AM CDT procedure are i n the results section. URINALYSIS MICROSCOPIC Timed 06/14/2022 10:59 R esults for this PM CDT procedure are i n the results section. UA W/ SEDIMENT EXAM Today 06/14/2022 10:59 Resu lts for this REFLEXED PER CRITERIA PM CDT proced ure are in the results section. GLUCOSE METER Routine 06/14/2022 10:34 Results fo r this PM CDT procedure are i n the results section. LACTATE VENOUS Timed 06/14/2022 8:41 PM Results for this CDT procedure are i n the results section. CT CHEST WO STAT 06/14/2022 7:52 PM Results f or this CDT procedure are i n the results section. CT SPINE CERVICAL WO STAT 06/14/2022 7:52 PM R esults for this CDT procedure are i n the results section. CT HEAD BRAIN WO STAT 06/14/2022 7:49 PM Resul ts for this CDT procedure are i n the results section. BLOOD CULTURE STAT 06/14/2022 6:36 PM Results for this CDT procedure are i n the results section. RED CELL MORPHOLOGY STAT 06/14/2022 6:35 PM Re sults for this CDT procedure are i n the results section. PLATELET ESTIMATE STAT 06/14/2022 6:35 PM Resu lts for this CDT procedure are i n the results section. CBC WITH AUTO STAT 06/14/2022 6:35 PM Results for this DIFFERENTIAL CDT procedure are i n the results section. TROPONIN I STAT 06/14/2022 6:35 PM Results f or this CDT procedure are i n the results section. BRAIN NATRIURETIC STAT 06/14/2022 6:35 PM Resu lts for this PEPTIDE CDT procedure are i n the results section. LACTATE VENOUS Today 06/14/2022 6:35 PM Results for this CDT procedure are i n the results section. BLOOD CULTURE STAT 06/14/2022 6:35 PM Results for this CDT procedure are i n the results section. COMP METABOLIC PANEL STAT 06/14/2022 6:35 PM R esults for this CDT procedure are i n the results section. CBC WITH AUTO STAT 06/14/2022 6:35 PM Results for this DIFFERENTIAL CDT procedure are i n the results section. COVID 19 STAT 06/14/2022 6:34 PM Results f or this CDT procedure are i n the results section. COVID 19 COLLECTION STAT 06/14/2022 6:34 PM Re sults for this CDT procedure are i n the results section. GLUCOSE METER Routine 06/05/2022 12:23 Results fo r this PM CDT procedure are i n the results section. GLUCOSE METER Routine 06/05/2022 8:21 AM Results for this CDT procedure are i n the results section. POTASSIUM Early AM 06/05/2022 5:47 AM Results f or this CDT procedure are i n the results section. CREATININE Early AM 06/05/2022 5:47 AM Results f or this CDT procedure are i n the results section. GLUCOSE METER Routine 06/04/2022 9:01 PM Results for this CDT procedure are i n the results section. GLUCOSE METER Routine 06/04/2022 6:25 PM Results for this CDT procedure are i n the results section. GLUCOSE METER Routine 06/04/2022 5:37 PM Results for this CDT procedure are i n the results section. GLUCOSE METER Routine 06/04/2022 11:38 Results fo r this AM CDT procedure are i n the results section. GLUCOSE METER Routine 06/04/2022 8:49 AM Results for this CDT procedure are i n the results section. MAGNESIUM JOVANNI 06/04/2022 8:47 AM Results f or this CDT procedure are i n the results section. CBC WITH AUTO Today 06/04/2022 8:47 AM Results for this DIFFERENTIAL CDT procedure are i n the results section. BRAIN NATRIURETIC Today 06/04/2022 8:47 AM Resu lts for this PEPTIDE CDT procedure are i n the results section. CBC WITH AUTO Today 06/04/2022 8:47 AM Results for this DIFFERENTIAL CDT procedure are i n the results section. BASIC METABOLIC PANEL Today 06/04/2022 8:47 AM Results for this CDT procedure are i n the results section. GLUCOSE METER Routine 06/03/2022 10:16 Results fo r this PM CDT procedure are i n the results section. GLUCOSE METER Routine 06/03/2022 6:11 PM Results for this CDT procedure are i n the results section. GLUCOSE METER Routine 06/03/2022 12:47 Results fo r this PM CDT procedure are i n the results section. GLUCOSE METER Routine 06/03/2022 8:50 AM Results for this CDT procedure are i n the results section. CBC WITH AUTO Early AM 06/03/2022 5:47 AM Results for this DIFFERENTIAL CDT procedure are i n the results section. BLOOD GAS,VENOUS Early AM 06/03/2022 5:47 AM Resul ts for this CDT procedure are i n the results section. BRAIN NATRIURETIC Early AM 06/03/2022 5:47 AM Resu lts for this PEPTIDE CDT procedure are i n the results section. BASIC METABOLIC PANEL Early AM 06/03/2022 5:47 AM Results for this CDT procedure are i n the results section. CBC WITH AUTO Early AM 06/03/2022 5:47 AM Results for this DIFFERENTIAL CDT procedure are i n the results section. D-DIMER,QUANTITATIVE Early AM 06/03/2022 5:47 AM R esults for this CDT procedure are i n the results section. GLUCOSE METER Routine 06/02/2022 9:23 PM Results for this CDT procedure are i n the results section. GLUCOSE METER Routine 06/02/2022 5:25 PM Results for this CDT procedure are i n the results section. US RENAL BILATERAL STAT 06/02/2022 3:34 PM Res ults for this CDT procedure are i n the results section. XR CHEST 1 VIEW STAT 06/02/2022 2:41 PM Result s for this PORTABLE CDT procedure are i n the results section. GLUCOSE METER Routine 06/02/2022 11:24 Results fo r this AM CDT procedure are i n the results section. GLUCOSE METER Routine 06/02/2022 8:21 AM Results for this CDT procedure are i n the results section. HEMOGLOBIN A1C JOVANNI 06/02/2022 6:10 AM Results for this CDT procedure are i n the results section. CBC WITH AUTO Early AM 06/02/2022 6:10 AM Results for this DIFFERENTIAL CDT procedure are i n the results section. D-DIMER,QUANTITATIVE Add On 06/02/2022 6:10 AM R esults for this CDT procedure are i n the results section. CBC WITH AUTO Early AM 06/02/2022 6:10 AM Results for this DIFFERENTIAL CDT procedure are i n the results section. BASIC METABOLIC PANEL Early AM 06/02/2022 6:10 AM Results for this CDT procedure are i n the results section. LACTATE VENOUS Timed 06/02/2022 2:42 AM Results for this CDT procedure are i n the results section. XR CHEST 1 VIEW STAT 06/02/2022 12:52 Results for this PORTABLE AM CDT procedure are i n the results section. URINE CULTURE JOVANNI 06/02/2022 12:45 Results fo r this AM CDT procedure are i n the results section. URINALYSIS MICROSCOPIC STAT 06/02/2022 12:45 R esults for this AM CDT procedure are i n the results section. UA W/ SEDIMENT EXAM STAT 06/02/2022 12:45 Resu lts for this REFLEXED PER CRITERIA AM CDT proced ure are in the results section. COVID 19 STAT 06/02/2022 12:39 Results for this AM CDT procedure are i n the results section. COVID 19 COLLECTION STAT 06/02/2022 12:39 Resu lts for this AM CDT procedure are i n the results section. INFLUENZA A/B PCR STAT 06/02/2022 12:39 Result s for this AM CDT procedure are i n the results section. EKG 12 LEAD STAT 06/02/2022 12:29 Results for this AM CDT procedure are i n the results section. C-REACTIVE PROTEIN Add On 06/02/2022 12:25 Resul ts for this AM CDT procedure are i n the results section. FERRITIN Add On 06/02/2022 12:25 Results for this AM CDT procedure are i n the results section. BRAIN NATRIURETIC STAT 06/02/2022 12:25 Result s for this PEPTIDE AM CDT procedure are i n the results section. BLOOD CULTURE STAT 06/02/2022 12:25 Results fo r this AM CDT procedure are i n the results section. TROPONIN I STAT 06/02/2022 12:25 Results for this AM CDT procedure are i n the results section. PROCALCITONIN STAT 06/02/2022 12:25 Results fo r this AM CDT procedure are i n the results section. COMP METABOLIC PANEL STAT 06/02/2022 12:25 Res ults for this AM CDT procedure are i n the results section. RED CELL MORPHOLOGY STAT 06/02/2022 12:24 Resu lts for this AM CDT procedure are i n the results section. PLATELET ESTIMATE STAT 06/02/2022 12:24 Result s for this AM CDT procedure are i n the results section. CBC WITH AUTO STAT 06/02/2022 12:24 Results fo r this DIFFERENTIAL AM CDT procedure are i n the results section. BLOOD GAS,VENOUS STAT 06/02/2022 12:24 Results for this AM CDT procedure are i n the results section. PROTIME-INR STAT 06/02/2022 12:24 Results for this AM CDT procedure are i n the results section. CBC WITH AUTO STAT 06/02/2022 12:24 Results fo r this DIFFERENTIAL AM CDT procedure are i n the results section. LACTATE VENOUS STAT 06/02/2022 12:24 Results f or this AM CDT procedure are i n the results section. BLOOD CULTURE STAT 06/02/2022 12:22 Results fo r this AM CDT procedure are i n the results section. LAB TRACKING EVENT Routine 04/07/2022 11:40 AM CDT PATH TISSUE EXAM Routine 04/07/2022 11:40 Results for this AM CDT procedure are i n the results section. from Last 3 Months Results SCAN CORRESP-DIAGNOSTICS (06/21/2022 12:00 AM CDT) Narrative 06/21/2022 12:00 AM CDT This result has an attachment that is no t available. Ordered by an unspecified provider. Other Clinical Staff OTHER (ABNORMAL) GLUCOSE METER (06/20/2022 11:10 AM CDT)Only the most recent of43 resultswithin the time period is included. P athologist Signature GLUCOSE METER 218 (H) 65 - 100 06/20/2022 [place] mg/dL 11:14 AM CDT HOSPITAL Specimen Anatomical Collection Method Collection Time Receive d Time (Source) Location / / Volume Laterality Blood BLOOD SPECIMEN / 06/20/2022 11:10 022 Unknown AM CDT 11:14 AM CDT Arnoldo Gregory [facility] CHEMISTRY Performing Organization Address City/State/ZIP Code Phon e Number [facility] [address] [address] (ABNORMAL) CBC WITH AUTO DIFFERENTIAL (06/20/2022 5:44 AM CDT)Only the most recent of11 resultswithin the time period is included. [facility] Method Time Signature WHITE BLOOD 6.4 4.5 - 11.0 06/20/2022 [place] COUNT thou/cu mm 6:27 AM CDT HOSPITAL RED BLOOD COUNT 4.64 4.30 - 06/20/2022 [place] 5.90 6:27 AM CDT HOSPITAL mil/cu mm HEMOGLOBIN 12.5 (L) 13.5 - 06/20/2022 [place] 17.5 g/dL 6:27 AM CDT HOSPITAL HEMATOCRIT 38.8 37.0 - 06/20/2022 [place] 53.0 % 6:27 AM CDT HOSPITAL MCV 84 80 - 100 06/20/2022 [place] fL 6:27 AM CDT HOSPITAL MCH 26.9 26.0 - 06/20/2022 [place] 34.0 pg 6:27 AM CDT HOSPITAL MCHC 32.2 32.0 - 06/20/2022 [place] 36.0 g/dL 6:27 AM CDT HOSPITAL RDW 15.4 11.5 - 06/20/2022 [place] 15.5 % 6:27 AM CDT HOSPITAL PLATELET COUNT 77 (L) 140 - 440 06/20/2022 [place] thou/cu mm 6:27 AM CDT HOSPITAL MPV 11.0 6.5 - 11.0 06/20/2022 [place] fL 6:27 AM CDT HOSPITAL % NEUT 86.1 % 06/20/2022 [place] 6:27 AM CDT HOSPITAL % LYMPH 6.6 % 06/20/2022 [place] 6:27 AM CDT HOSPITAL % MONO 6.8 % 06/20/2022 [place] 6:27 AM CDT HOSPITAL % EOS 0.3 % 06/20/2022 [place] 6:27 AM CDT HOSPITAL % BASO 0.2 % 06/20/2022 [place] 6:27 AM CDT HOSPITAL ABSOLUTE 5.5 1.7 - 7.0 06/20/2022 [place] NEUTROPHILS thou/cu mm 6:27 AM CDT HOSPITAL ABSOLUTE 0.4 (L) 0.9 - 2.9 06/20/2022 [place] LYMPHOCYTES thou/cu mm 6:27 AM T HOSPITAL ABSOLUTE 0.4 <0.9 06/20/2022 [place] MONOCYTES thou/cu mm 6:27 AM T HOSPITAL ABSOLUTE 0.0 <0.5 06/20/2022 [place] EOSINOPHILS thou/cu mm 6:27 AM T HOSPITAL ABSOLUTE 0.0 <0.3 06/20/2022 [place] BASOPHILS thou/cu mm 6:27 AM CDT HOSPITAL Specimen Anatomical Collection Method / Collection Time Recei laura Time (Source) Location / Volume Laterality Blood BLOOD SPECIMEN / Venipuncture / 06/20/2022 5:44 2021 6:11 Unknown Unknown AM CDT AM CDT Mistid Drea Betzyrianna [facility] HEMATOLOGY Performing Organization Address City/State/ZIP Code Phon e Number [facility] [address] [phone] (ABNORMAL) PROTIME-INR (06/20/2022 5:44 AM CDT)Only the most recent of5 results within the time period is included. P athologist Signature INR 1.8 (H) <1.3 06/20/2022 [place] 6:22 AM [facility] PROTIME 20.1 (H) 12.0 - 13.8 06/20/2022 [place] sec 6:22 AM T [facility] Specimen Anatomical Collection Method / Collection Time Recei laura Time (Source) Location / Volume Laterality Blood BLOOD SPECIMEN / Venipuncture / 06/20/2022 5:44 2021 6:12 Unknown Unknown AM CDT AM CDT [facility] - 06/20/2022 6:22 AM C DT ?Therapeutic Range 2.0-3.0 for most anticoagulated patients 2.5-3.5 or 4.0 for high risk patients The INR is only used for patients on sta ble oral anticoagulant therapy. It makes no significant contribution to the diagnosis or treatment of patients whose Protime is prolonged f or other reasons. INR results are increased when heparin l evels exceed 1.0 U/mL, which corresponds to an aPTT >125 seconds if the patient is on UFH. Arnoldo Gregory [facility] HEMATOLOGY Performing Organization Address City/State/ZIP Code Phon e Number [facility] [address] [phone] (ABNORMAL) BASIC METABOLIC PANEL (06/20/2022 5:44 AM T)Only the most recent of 6 resultswithin the time period is included. [facility] SODIUM 138 135 - 145 06/20/2022 [place] mmol/L 6:35 AM [facility] POTASSIUM 4.3 3.5 - 5.0 06/20/2022 [place] mmol/L 6:35 AM [facility] CHLORIDE 113 (H) 98 - 110 06/20/2022 [place] mmol/L 6:35 AM [facility] CO2,TOTAL 21 21 - 31 06/20/2022 [place] mmol/L 6:35 AM [facility] ANION GAP 4 (L) 5 - 18 06/20/2022 [place] 6:35 AM [facility] GLUCOSE 163 (H) 65 - 100 06/20/2022 [place] mg/dL 6:35 AM [facility] CALCIUM 8.9 8.5 - 10.5 06/20/2022 [place] mg/dL 6:35 AM [facility] BUN 51 (H) 8 - 25 06/20/2022 [place] mg/dL 6:35 AM [facility] CREATININE 2.01 (H) 0.72 - 06/20/2022 [place] 1.25 mg/dL 6:35 AM [facility] BUN/CREAT RATIO 25 (H) 10 - 20 06/20/2022 [place] 6:35 AM [facility] eGFR 35 (L) >90 06/20/2022 [place] mL/min/1.7 6:35 AM [facility] 3m2 Comment: As of 2021, eGFR is calcu lated by the CKD-EPI creatinine equation without race adjustment. eGFR can be inf luenced by muscle mass, exercise, and diet. The reported eGFR is an estimation only and is only applicable if the renal function is stable. Specimen Anatomical Collection Method / Collection Time Recei laura Time (Source) Location / Volume Laterality Blood BLOOD SPECIMEN / Venipuncture / 06/20/2022 5:44 2021 6:12 Unknown Unknown AM CDT AM CDT [facility] CHEMISTRY Performing Organization Address [facility] e [facility] [address] [phone] (ABNORMAL) RED CELL MORPHOLOGY (06/19/2022 5:52 AM CDT)Only the most recent of7 resultswithin the time period is included. [facility] MycooN Method Time Signature ELLIPTOCYTES Few 06/19/2022 [place] 7:57 AM CDT HOSPITAL RBC COMMENT Present (A) RBC morphology 06/19/2022 [place] appears 7:57 AM CDT HOSPITAL normal, RBC morphology within normal limits for newborns. Specimen Anatomical Collection Method / Collection Time Recei laura Time (Source) Location / Volume Laterality Blood BLOOD SPECIMEN / Venipuncture / 06/19/2022 5:52 2021 6:44 Unknown Unknown AM CDT AM CDT [facility] HEMATOLOGY Performing Organization Address [facility] [address] [address] (ABNORMAL) PLATELET ESTIMATE (06/19/2022 5:52 AM CDT)Only the most recent of7 resultswithin the time period is included. [facility] Myco[facility] Method Time Signature PLATELET Decreased (A) Adequate, No 06/19/2022 [place] ESTIMATE estimate 7:57 AM CDT HOSPITAL Specimen Anatomical Collection Method / Collection Time Recei laura Time (Source) Location / Volume Laterality Blood BLOOD SPECIMEN / Venipuncture / 06/19/2022 5:52 2021 6:44 Unknown Unknown AM CDT AM CDT [facility] HEMATOLOGY Performing Organization Address [facility] e [facility] [address] [address] PROCALCITONIN (06/19/2022 5:52 AM CDT)Only the most recent of2 resultswithin the time period is included. P athologist Signature PROCALCITONIN 0.05 <0.50 ng/ml 06/19/2022 [place] 9:45 AM CDT HOSPITAL Specimen Anatomical Collection Method / Collection Time Recei laura Time (Source) Location / Volume Laterality Blood BLOOD SPECIMEN / Venipuncture / 06/19/2022 5:52 2021 6:44 Unknown Unknown AM CDT AM CDT Narrative [facility] - 06/19/2022 9:45 AM C DT Procalcitonin for initial assessment of Lower Respiratory Tract Infection: Results Interpretation <0.1 ng/mL ?Antibiotics strong ly discouraged.* 0.1 - 0.25 ng/mL ??Antibiotics discourag ed. * 0.26 - 0.50 ng/mL Antibiotics encouraged . >0.50 ng/mL ? Antibiotics strongl y encouraged. *If suspicion of infection high, clinica lly unstable, or immunosuppressed: initiate antibiotics. Repeat PCT testing in 6-24 hours. Repeat PCT testing every 1-2 days whil e on antibiotics to assess response to therapy. Procalcitonin for initial assessment of severe sepsis risk: Results Interpretation < 0.5 ng/mL Associated with a low risk f or progression to severe sepsis/septic shock. > 2.0 ng/mL Associated with a high risk for progression to severe sepsis/septic shock. Note: PCT levels below 0.5 ng/mL do not exclude an infection, because localized infections may also be associated with such low levels. If the PCT measurement is done very early after the systemic infec tion process has started (usually <6 caio rs), these values may still be low. PCT levels between 0.5 ng/mL and 2.0 ng/ mL should be interpreted in the context of the specific clinical background and conditions of the individual patient. It is recommended to re-test PCT within 6-24 hours if any concentrations <2.0 ng/mL are obtained. Arnoldo Gregory [facility] SEND OUTS Performing Organization Address City/State/ZIP Code Phon e Number [facility] [address] [address] XR CHEST 1 VIEW PORTABLE (06/18/2022 9:15 AM CDT)Only the most recent of4 resultswithin the time period is included. Anatomical Region Laterality Modality HEART, THORAX, CHEST Digital Radiography Specimen (Source) Anatomical Location Collection Method / Collectio n Time Received Time / Laterality Volume Narrative This result has an attachment that is no t available. Mistitimmy Drea Gregory [facility] GENERAL IMAGING MAGNESIUM (06/17/2022 6:25 AM CDT)Only the most recent of4 resultswithin the time period is included. athologist Signature MAGNESIUM 2.2 1.6 - 2.6 06/17/2022 [place] mg/dL 7:01 AM T HOSPITAL Specimen Anatomical Collection Method / Collection Time Recei laura Time (Source) Location / Volume Laterality Blood BLOOD SPECIMEN / Venipuncture / 06/17/2022 6:25 2021 6:29 Unknown Unknown AM CDT AM CDT Larry GARCÍABS CHEMISTRY Performing Organization Address City/State/ZIP Code Phon e Number [facility] [address] [place] [address] (ABNORMAL) COMP METABOLIC PANEL (06/17/2022 6:25 AM CDT)Only the most recent of5 resultswithin the time period is included. [facility] gist Method Time Signature SODIUM 137 135 - 145 06/17/2022 [place] mmol/L 7:01 AM T HOSPITAL POTASSIUM 4.7 3.5 - 5.0 06/17/2022 [place] mmol/L 7:01 AM T HOSPITAL CHLORIDE 110 98 - 110 06/17/2022 [place] mmol/L 7:01 AM T HOSPITAL CO2,TOTAL 20 (L) 21 - 31 06/17/2022 [place] mmol/L 7:01 AM T [facility]OSPITAL ANION GAP 7 5 - 18 06/17/2022 [place] 7:01 AM T [facility]OSPITAL GLUCOSE 263 (H) 65 - 100 06/17/2022 [place] mg/dL 7:01 AM T HOSPITAL CALCIUM 9.0 8.5 - 10.5 06/17/2022 [place] mg/dL 7:01 AM [facility] BUN 53 (H) 8 - 25 06/17/2022 [place] mg/dL 7:01 AM [facility] CREATININE 2.01 (H) 0.72 - 06/17/2022 [place] 1.25 mg/dL 7:01 AM [facility] BUN/CREAT RATIO 26 (H) 10 - 20 06/17/2022 [place] 7:01 AM [facility] ALBUMIN 2.6 (L) 3.2 - 4.6 06/17/2022 [place] g/dL 7:01 AM [facility] PROTEIN,TOTAL 5.3 (L) 6.0 - 8.0 06/17/2022 [place] g/dL 7:01 AM [facility] GLOBULIN 2.7 2.0 - 3.7 06/17/2022 [place] g/dL 7:01 AM [facility] A/G RATIO 1.0 1.0 - 2.0 06/17/2022 [place] 7:01 AM [facility] BILIRUBIN,TOTAL 1.0 0.2 - 1.2 06/17/2022 [place] mg/dL 7:01 AM [facility] ALK PHOSPHATASE 81 50 - 136 06/17/2022 [place] IU/L 7:01 AM [facility] ALT (SGPT) 17 8 - 45 06/17/2022 [place] IU/L 7:01 AM [facility] AST (SGOT) 10 2 - 40 06/17/2022 [place] IU/L 7:01 AM [facility] eGFR 35 (L) >90 06/17/2022 [place] mL/min/1.7 7:01 AM [facility] 3m2 Comment: As of 2021, eGFR is calcu lated by the CKD-EPI creatinine equation without race adjustment. eGFR can be inf luenced by muscle mass, exercise, and diet. The reported eGFR is an estimation only and is only applicable if the renal function is stable. Specimen Anatomical Collection Method / Collection Time Recei laura Time (Source) Location / Volume Laterality Blood BLOOD SPECIMEN / Venipuncture / 06/17/2022 6:25 2021 6:29 Unknown Unknown AM T AM CDT Larry HERNANDEZ CHEMISTRY Performing Organization Address City/[facility] e Number [address] [phone] ECHO COMPLETE WO CONTRAST (06/16/2022 4:09 PM CDT) Anatomical Region Laterality Modality HEART Ultrasound Specimen (Source) Anatomical Location Collection Method / Collectio n Time Received Time / Laterality Volume Narrative 06/16/2022 4:10 PM CDT Please see scanned document for results of this study. Larry HERNANDEZ ECHO ORD PHOSPHORUS (06/16/2022 5:17 AM CDT)Only the most recent of2 resultswithin the time period is included. athologist Signature PHOSPHORUS 3.0 2.3 - 4.7 06/16/2022 [place] mg/dL 6:42 AM CDT HOSPITAL Specimen Anatomical Collection Method / Collection Time Recei laura Time (Source) Location / Volume Laterality Blood BLOOD SPECIMEN / Venipuncture / 06/16/2022 5:17 2021 6:17 Unknown Unknown AM CDT AM CDT Larry HERNANDEZ CHEMISTRY Performing Organization Address [facility] e Number [address] [address] (ABNORMAL) Serum Glucose (06/15/2022 11:59 PM CDT)Only the most recent of5 resultswithin the time period is included. P athologist Signature GLUCOSE,RANDOM 480 (HH) 65 - 140 06/16/2022 [place] mg/dL 12:29 AM CDT HOSPITAL Specimen Anatomical Collection Method / Collection Time Recei laura Time (Source) Location / Volume Laterality Blood BLOOD SPECIMEN / Venipuncture / 06/15/2022 11:59 06/16 Unknown Unknown PM CDT 12:10 AM CDT Kyle Fontenot DO CHEMISTRY Performing Organization Address City/[facility]/ZIP [facility] Phon e Number [address] [phone] APTT (06/15/2022 11:59 PM CDT)Only the most recent of2 resultswithin the time period is included. athologist Signature APTT 26 24 - 33 sec 06/16/2022 [place] 12:21 AM CDT HOSPITAL Specimen Anatomical Collection Method / Collection Time Recei laura Time (Source) Location / Volume Laterality Blood BLOOD SPECIMEN / Venipuncture / 06/15/2022 11:59 06/16 Unknown Unknown PM CDT 12:[address] [facility] - 06/16/2022 12:21 AM CDT Therapeutic Range: 70-95 seconds Larry HERNANDEZ HEMATOLOGY Performing Organization Address City/[facility]/ZIP [facility] e [address] [address] (ABNORMAL) OCCULT BLOOD IFOBT STOOL (06/15/2022 9:14 PM CDT) [facility] gist Method Time Signature STOOL BLOOD Positive (A) Negative 06/15/2022 [place] ,IFOBT 9:24 PM CDT HOSPITAL Specimen Anatomical Collection Method Collection Time Receive d Time (Source) Location / / Volume Laterality Stool STOOL SPECIMEN / Non-Blood / 06/15/2022 9:14 PM 06/15 9:19 Unknown Unknown CDT PM CDT Kyle Fontenot DO LABORATORY Performing Organization Address City/[facility] e [address] [address] (ABNORMAL) PLATELET COUNT (06/15/2022 4:58 PM CDT) athologist Signature PLATELET COUNT 77 (L) 140 - 440 06/15/2022 [place] thou/cu mm 5:28 PM CDT HOSPITAL MPV 06/15/2022 [place] 5:28 PM CDT HOSPITAL Comment: Unable to be determined Specimen Anatomical Collection Method / Collection Time Recei laura Time (Source) Location / Volume Laterality Blood BLOOD SPECIMEN / Venipuncture / 06/15/2022 4:58 2021 5:03 Unknown Unknown PM CDT PM CDT Narrative [facility] - 06/15/2022 5:28 PM C DT Obtain before initiating IV heparin therapy if not done within previous 24 hours. Obtain before initiating IV heparin ther apy if not done within previous 24 hours. Obtain before initiating IV heparin ther apy if not done within previous 24 hours. Larry GARCÍA HEMATOLOGY Performing Organization Address [facility]/[address] [address] (ABNORMAL) HEMOGLOBIN (06/15/2022 4:58 PM CDT)Only the most recent of2 results within the time period is included. athologist Signature HEMOGLOBIN 12.5 (L) 13.5 - 06/15/2022 [facility] 17.5 g/dL 5:08 PM CDT HOSPITAL MCV 83 80 - 100 06/15/2022 [facility] fL 5:08 PM CDT HOSPITAL Specimen Anatomical Collection Method / Collection Time Recei laura Time (Source) Location / Volume Laterality Blood BLOOD SPECIMEN / Venipuncture / 06/15/2022 4:58 2021 5:03 Unknown Unknown PM CDT PM CDT [facility] - 06/15/2022 5:08 PM C DT Obtain before initiating IV heparin therapy if not done within previous 24 hours. Obtain before initiating IV heparin ther apy if not done within previous 24 hours. Obtain before initiating IV heparin ther apy if not done within previous 24 hours. Larry GARCÍA HEMATOLOGY Performing Organization Address [facility]/[address] [address] HEMATOCRIT (06/15/2022 4:58 PM CDT) athologist Signature HEMATOCRIT 38.8 37.0 - 53.0 06/15/2022 [place] % 5:10 PM CDT HOSPITAL Specimen Anatomical Collection Method / Collection Time Recei laura Time (Source) Location / Volume Laterality Blood BLOOD SPECIMEN / Venipuncture / 06/15/2022 4:58 2021 5:03 Unknown Unknown PM CDT PM CDT [facility] - 06/15/2022 5:10 PM C DT Obtain before initiating IV heparin therapy if not done within previous 24 hours. Obtain before initiating IV heparin ther apy if not done within previous 24 hours. Obtain before initiating IV heparin ther apy if not done within previous 24 hours. Larry HERNANDEZ HEMATOLOGY Performing Organization Address [facility]/[address] [address] (ABNORMAL) BUN (06/15/2022 4:58 PM CDT) athologist Signature BUN 65 (H) 8 - 25 06/15/2022 [place] mg/dL 5:24 PM CDT HOSPITAL Specimen Anatomical Collection Method / Collection Time Recei laura Time (Source) Location / Volume Laterality Blood BLOOD SPECIMEN / Venipuncture / 06/15/2022 4:58 2021 5:03 Unknown Unknown PM CDT PM CDT Larry HERNANDEZ CHEMISTRY Performing Organization Address [facility]/[address] [address] (ABNORMAL) CREATININE (06/15/2022 4:58 PM CDT)Only the most recent of2 results within the time period is included. athologist Signature CREATININE 2.40 (H) 0.72 - 1.25 06/15/2022 [place] mg/dL 5:23 PM CDT HOSPITAL eGFR 28 (L) >90 06/15/2022 [place] mL/min/1.73 5:23 PM CDT HOSPITAL m2 Comment: As of 2021, eGFR is calcu lated by the CKD-EPI creatinine equation without race adjustment. eGFR can be inf luenced by muscle mass, exercise, and diet. The reported eGFR is an estimation only and is only applicable if the renal function is stable. Specimen Anatomical Collection Method / Collection Time Recei laura Time (Source) Location / Volume Laterality Blood BLOOD SPECIMEN / Venipuncture / 06/15/2022 4:58 2021 5:03 Unknown Unknown PM CDT PM CDT Larry HERNANDEZ CHEMISTRY Performing Organization Address City/[facility] Phon e Number [facility] [address] [address] US VENOUS LOWER EXTREMITY BILATERAL (06/15/2022 4:05 PM CDT) Anatomical Region Laterality Modality LEGS, LEG L, LEG R Ultrasound Specimen (Source) Anatomical Location Collection Method / Collectio n Time Received Time / Laterality Volume Narrative This result has an attachment that is no t available. Larry HERNANDEZ US (ABNORMAL) D-DIMER,QUANTITATIVE (06/15/2022 3:01 PM CDT)Only the most recent of3 resultswithin the time period is included. [facility] Time Signature D-DIMER,QUANT 1.65 See Comment 06/15/2022 [place] ITATIVE / FEU 3:25 PM CDT HOSPITAL mcg/mL D-DIMER Abnormal (A) 06/15/2022 [place] INTERP 3:25 PM CDT HOSPITAL Specimen Anatomical Collection Method / Collection Time Recei laura Time (Source) Location / Volume Laterality Blood BLOOD SPECIMEN / Venipuncture / 06/15/2022 3:01 2021 3:09 Unknown Unknown PM CDT PM CDT Narrative [facility] - 06/15/2022 3:25 PM C DT The cut off value for exclusion of Deep Vein Thrombosis and / or Pulmonary Embolism is 0.50 FEU mcg/mL For patients greater than 50 years of ag e the upper limit is age dependent and was calculated with the formula: ?? (PATIENT AGE x 0.01) FEU mcg/mL = Upper limit of normal range Larry HERNANDEZ HEMATOLOGY Performing Organization Address City/[facility]/ZIP Code Phon e Number [facility] [address] [address] (ABNORMAL) IRON PLUS IRON BINDING CAP (06/15/2022 5:46 AM CDT) Analysis Performed At Patho logist Time Signature IRON 23 (L) 31 - 144 06/17/2022 [facility] ug/dL 7:13 PM CDT LABORATORY-JACK[facility] TRAL LABORATORY UIBC 154 06/17/2022 [facility] (UNSATURATED) 7:13 PM CDT LABORATORY-[facility] LABORATORY IRON BINDING 177 (L) 245 - 400 06/17/2022 [facility] [employer] [facility] ug/dL 7:13 PM CDT LABORATORY-[facility] TRAL LABORATORY IRON,% 13 (L) 20 - 55 % 06/17/2022 [facility] 7:13 PM CDT LABORATORY-[facility] TRAL LABORATORY Specimen Anatomical Collection Method / Collection Time Recei laura Time (Source) Location / Volume Laterality Blood BLOOD SPECIMEN / Venipuncture / 06/15/2022 5:46 2021 6:01 Unknown Unknown AM CDT AM CDT Kyle Fontenot DO CHEMISTRY Performing Organization Address City/[facility] Phon e Number [facility] [employer] [address] [place] [address] [place] [address] LABORATORY-CENTRAL 2000 LABORATORY (ABNORMAL) PTH,INTACT (06/15/2022 5:46 AM CDT) P athologist Signature PTH,INTACT 489.0 (H) 14.5 - 06/16/2022 [facility] 87.1 pg/mL 3:01 PM CDT LABORATORY-[facility] TRAL LABORATORY CALCIUM 8.6 8.5 - 10.5 06/16/2022 [facility] mg/dL 3:01 PM CDT LABORATORY-JACK[facility] TRAL LABORATORY Specimen Anatomical Collection Method / Collection Time Recei laura Time (Source) Location / Volume Laterality Blood BLOOD SPECIMEN / Venipuncture / 06/15/2022 5:46 2021 6:01 Unknown Unknown AM CDT AM CDT Kyle Fontenot DO SEND OUTS Performing Organization Address City/[facility] Phon e Number [facility] [address] [place] [address] [place] [address] LABORATORY-CENTRAL 2000 LABORATORY (ABNORMAL) FERRITIN (06/15/2022 5:46 AM CDT)Only the most recent of2 results within the time period is included. P athologist Signature FERRITIN 547.6 (H) 22.0 - 06/17/2022 [facility] 275.0 7:22 PM CDT LABORATORY-CENT ng/mL RAL LABORATORY Specimen Anatomical Collection Method / Collection Time Recei laura Time (Source) Location / Volume Laterality Blood BLOOD SPECIMEN / Venipuncture / 06/15/2022 5:46 2021 6:01 Unknown Unknown AM CDT AM CDT Kyle Fontenot DO CHEMISTRY Performing Organization Address City/State/ZIP Code Phon e Number [facility] [address] [place] [address] LABORATORY-CENTRAL 2000 LABORATORY WHITE BLOOD COUNT (06/15/2022 1:45 AM CDT) P athologist Signature WHITE BLOOD 9.3 4.5 - 11.0 06/15/2022 [place] COUNT thou/cu mm 1:53 AM CDT HOSPITAL Specimen Anatomical Collection Method Collection Time Receive d Time (Source) Location / / Volume Laterality Blood BLOOD SPECIMEN / Butterfly / 06/15/2022 1:45 AM 06/15 1:49 Unknown Unknown CDT AM CDT Narrative [facility] - 06/15/2022 1:53 AM C DT WBC MUST ALSO BE ORDERED, [id number] Kyle Cummings [facility] HEMATOLOGY Performing Organization Address City/[facility]/ZIP Code Phon e Number [facility] [address] [address] (ABNORMAL) DIFFERENTIAL (06/15/2022 1:45 AM CDT) Analysis Performed At Patho logist Time Signature % NEUT 94.6 % 06/15/2022 [place] 1:52 AM CDT HOSPITAL % LYMPH 2.0 % 06/15/2022 [place] 1:52 AM CDT HOSPITAL % MONO 2.8 % 06/15/2022 [place] 1:52 AM CDT HOSPITAL % EOS 0.5 % 06/15/2022 [place] 1:52 AM CDT HOSPITAL % BASO 0.1 % 06/15/2022 [place] 1:52 AM CDT HOSPITAL ABSOLUTE 8.8 (H) 1.7 - 7.0 06/15/2022 [place] NEUTROPHILS thou/cu mm 1:52 AM CDT HOSPITAL ABSOLUTE 0.2 (L) 0.9 - 2.9 06/15/2022 [place] LYMPHOCYTES thou/cu mm 1:52 AM CDT HOSPITAL ABSOLUTE 0.3 <0.9 06/15/2022 [place] MONOCYTES thou/cu mm 1:52 AM CDT HOSPITAL ABSOLUTE 0.1 <0.5 06/15/2022 [place] EOSINOPHILS thou/cu mm 1:52 AM CDT HOSPITAL ABSOLUTE 0.0 <0.3 06/15/2022 [place] BASOPHILS thou/cu mm 1:52 AM CDT HOSPITAL Specimen Anatomical Collection Method Collection Time Receive d Time (Source) Location / / Volume Laterality Blood BLOOD SPECIMEN / Butterfly / 06/15/2022 1:45 AM 06/15 1:49 Unknown Unknown CDT AM CDT [facility] - 06/15/2022 1:52 AM C DT WBC MUST ALSO BE ORDERED, [id number] Kyle Fontenot DO HEMATOLOGY Performing Organization Address City/[facility]/ZIP Code Phon e Number [facility] [address] [address] (ABNORMAL) Hemoglobin A1C (06/15/2022 1:45 AM CDT)Only the most recent of2 resultswithin the time period is included. Analysis Performed At Patho logist Time Signature HEMOGLOBIN A1C 8.8 (H) <=6.4 % 06/16/2022 [facility] 8:31 PM CDT HOSPITAL (POCT) LABORATORY Specimen Anatomical Collection Method Collection Time Receive d Time (Source) Location / / Volume Laterality Blood BLOOD SPECIMEN / Add On / Unknown 06/15/2022 1:45 AM 1 Unknown CDT 10:[address] [facility] LABORATORY - 06/16/2022 8:31 PM CDT ? (<=6.9%) ? Indicates good control ? (7.0% to 7.9%) ? Indicates fa ir control ? (>=8.0%) ? Indicates poor control ?? NOTE: ??These thresholds are guideli beverly and ?individual targets may va ry. Falsely low levels may be seen with: Recent Transfusion, Recent Significant B lood Loss, Hemolytic Diseases, or Falsely elevated levels may be seen with : Untreated Anemias, Splenectomy ? Larry HERNANDEZ CHEMISTRY Performing Organization Address City/State/ZIP Code Phon e Number [facility] SENDOUT INTERNAL [place] [phone] [address] [place] SCAN-CARDIAC STRIP (06/15/2022 12:00 AM CDT) Narrative 06/15/2022 12:00 AM CDT This result has an attachment that is no t available. Ordered by an unspecified provider. Other Clinical Staff OTHER SCAN-CARDIAC STRIP (06/15/2022 12:00 AM CDT) Narrative 06/15/2022 12:00 AM CDT This result has an attachment that is no t available. Ordered by an unspecified provider. Other Clinical Staff OTHER (ABNORMAL) URINALYSIS MICROSCOPIC (06/14/2022 10:59 PM CDT)Only the most recent of2 resultswithin the time period is included. [facility] gist Method Time Signature RBC 3-5 (A) 0-2, None 06/14/2022 [place] Seen /HPF 11:14 PM [facility] LABORATORY WBC 6-10 (A) 0-2, 3-5, 06/14/2022 [place] None Seen 11:14 PM [facility] /HPF LABORATORY BACTERIA Few None 06/14/2022 [place] Seen, 11:14 PM [facility] Rare, Few LABORATORY Bacteria/ HPF EPITHELIAL Few None 06/14/2022 [place] CELLS Seen, Few 11:14 PM [facility] Epi/HPF LABORATORY Mucus Present 06/14/2022 [place] 11:14 PM [facility] LABORATORY WHITE CELL Present (A) (none) 06/14/2022 [place] CLUMPS 11:14 PM [facility] LABORATORY Specimen Anatomical Collection Method Collection Time Receive d Time (Source) Location / / Volume Laterality Urine URINE SPECIMEN / Non-Blood / 06/14/2022 10:59 022 Unknown Unknown PM CDT 11:01 PM CDT Rosenda Blancas MD URINE Performing Organization Address City/[facility]/ZIP Code Phon e Number [facility] LABORATORY [address] [place] [address] (ABNORMAL) UA W/ SEDIMENT EXAM REFLEXED PER CRITERIA (06/14/2022 10:59 PM CDT) Only the most recent of2 resultswithin the time period is included. [facility] Method Time Signature COLOR Yellow Yellow Color 06/14/2022 [place] 11:07 PM [facility] LAB[facility]ATORY CLARITY Clear Clear 06/14/2022 [place] Clarity 11:07 PM [facility] LABORATORY SPECIFIC 1.025 1.010, 06/14/2022 [place] GRAVITY,URINE 1.015, 11:07 PM [facility] MEDICAL 1.020, 1.025 [place] [facility] PH,URINE 6.0 6.0, 7.0, 06/14/2022 [place] 8.0, 5.5, 11:07 PM [facility] 6.5, 7.5, CENTER 8.5 LABORATORY UROBILINOGEN, Normal Normal EU/dl 06/14/2022 [place] QUALITATIVE 11:07 PM [facility] LAB[facility]ATORY PROTEIN, 100 (A) Negative 06/14/2022 [place] URINE mg/dL 11:07 PM [facility] LABORATORY GLUCOSE, >=1000 (A) Negative 06/14/2022 [facility] mg/dL 11:07 [facility] LABORATORY KETONES,URINE Negative Negative 06/14/2022 [facility] mg/dL 11:07 [facility] LABORATORY BILIRUBIN,URI Negative Negative 06/14/2022 [facility] [place] 11:07 PM [facility] LAB[facility]ATORY OCCULT Small (A) Negative 06/14/2022 [place] BLOOD,URINE 11:07 PM [facility] LABORATORY NITRITE Negative Negative 06/14/2022 [facility] 11:07 PM [facility] LABORATORY LEUKOCYTE Negative Negative 06/14/2022 [place] ESTERASE 11:07 PM [facility] LABORATORY Specimen Anatomical Collection Method Collection Time Receive d Time (Source) Location / / Volume Laterality Urine URINE SPECIMEN / Non-Blood / 06/14/2022 10:59 022 Unknown Unknown PM CDT 11:01 PM CDT Rosenda Blancas MD URINE Performing Organization Address City/State/ZIP Code Phon e Number [facility] LABORATORY [address] [place] [address] LACTATE VENOUS (06/14/2022 8:41 PM CDT)Only the most recent of4 resultswithin the time period is included. P athologist Signature LACTATE,VENOUS 1.7 0.5 - 2.0 06/14/2022 [place] mmol/L 8:59 PM CDT [facility] LAB[facility] Specimen Anatomical Collection Method / Collection Time Recei lauar Time (Source) Location / Volume Laterality Blood BLOOD SPECIMEN / Venipuncture / 06/14/2022 8:41 2021 8:43 Unknown Unknown PM CDT PM CDT Rosenda Blancas MD CHEMISTRY Performing Organization Address City/State/ZIP Code Phon e Number [facility]ORY [address] [place] [address] CT CHEST WO (06/14/2022 7:52 PM CDT) Anatomical Region Laterality Modality CHEST, THORAX, HEART Computed Tomography Specimen (Source) Anatomical Collection Method Collection Time Re ceived Time Location / / Volume Laterality 06/14/2022 8:25 PM CDT Narrative 06/14/2022 8:25 PM CDT For Patients: ??As a result of the Cures Act, medical imaging exams and procedure report s are released immediately into your [facility] medical record. ??You may view this report before your referring provider. ??If you have questions, please contact your health care provider. Indication: Shortness of breath Technique: Volumetric multidetector CT images of th e chest were obtained without the administration of IV contrast. Comparison: None available. Findings: There is demonstration of a nodule in th e left thyroid lobe. Otherwise the thyroid gland is grossly unremarkable. The thoracic aorta is nonaneurysmal. There are enlarged, reactive appearing m ediastinal and hilar lymph nodes. There is mild central bronchial thickeni ng. There are scattered interstitial, ground -glass and airspace opacities seen throughout the bilateral hemithoraces commensurate with multifocal infiltrates or pulmonary edema. There is no pleural effusion, pneumothorax. Calcified granulomas are seen in the lef t upper lobe. The partially visualized upper abdomen d emonstrates extensive cholelithiasis. The thoracic vertebral body heights are grossly maintained with diffuse flowing anterior osteophytosis. There is no significant spondylolisthesis or displaced fracture. Impression: Demonstration of extensive interstitial, ground-glass and airspace opacities throughout the bilateral hemithoraces with reactive mediastinal and hilar lymph nodes commensurate with multifocal infiltrate s and/or pulmonary edema. Bailey virus i nfection can have this appearance. Correlate with clinical testing if there is persistent clinical concern. Please note that all CT scans at this fa cility use dose modulation, iterative reconstruction, and/or weight-based dosing when appropriate to reduce radiation dose to as low as reasonably achievable. Dictated by Estevan Tubbs MD @ 06/14/20 22 8:25:44 PM (Electronically Signed) Procedure Note Estevan Tubbs MD - 06/14/2022Fo rmatting of this note might be different from the original. For Patients: As a result of the ntury Cures Act, medical imaging exams and procedure reports are released immediately into your electronic medical record. You may view this report before your referring provider. If you have questions, please contact [facility] care provider. Indication: Shortness of breath Technique: Volumetric multidetector CT images of th e chest were obtained without the administration of IV contrast. Comparison: None available. Findings: There is demonstration of a nodule in th e left thyroid lobe. Otherwise the thyroid gland is grossly unremarkable. The thoracic aorta is nonaneurysmal. There are enlarged, reactive appearing m ediastinal and hilar lymph nodes. There is mild central bronchial thickeni ng. There are scattered interstitial, ground -glass and airspace opacities seen throughout the bilateral hemithoraces commensurate with multifocal infiltrates or pulmonary edema. There is no pleural effusion, pneumothorax. Calcified granulomas are seen in the lef t upper lobe. The partially visualized upper abdomen d emonstrates extensive cholelithiasis. The thoracic vertebral body heights are grossly maintained with diffuse flowing anterior osteophytosis. There is no significant spondylolisthesis or displaced fracture. Impression: Demonstration of extensive interstitial, ground-glass and airspace opacities throughout the bilateral hemithoraces with reactive mediastinal and hilar lymph nodes commensurate with multifocal infiltrates and/or pulmonary edema. Bailey virus infection can have this appearance. Correlate with clinical testing if there is persistent clinical concern. Please note that all CT scans at this fa cility use dose modulation, iterative reconstruction, and/or weight-based dosing when appropriate to reduce radiation dose to as low as reasonably achievable. Dictated by Estevan Tubbs MD @ 06/14/20 22 8:25:44 PM (Electronically Signed) Rosenda Blancas MD CT CT SPINE CERVICAL WO (06/14/2022 7:52 PM CDT) Anatomical Region Laterality Modality CERVICAL SPINE, NECK, Spine Computed Dereck ography Specimen (Source) Anatomical Collection Method Collection Time Re ceived Time Location / / Volume Laterality 06/14/2022 8:21 PM CDT Narrative 06/14/2022 8:21 PM CDT For Patients: ??As a result of the Cures Act, medical imaging exams and procedure report s are released immediately into your [facility] [place] medical record. ??You may view this report before your referring provider. ??If you have questions, please contact your health care provider. Indication: Trauma Technique: Volumetric multidetector CT images of th e cervical spine were obtained without the administration of IV contrast. Comparison: None available. Findings: The cervical vertebral body heights are grossly maintained with minimal endplate Schmorl`s defects. There is straightening of the normal cer vical lordosis without evidence of significant spondylolisthesis. There is no displaced fracture or disloc ation. There is severe multilevel degenerative disc disease with disc height loss and extensive ossification of the anterior and posterior longitudinal ligaments. There is moderate multilevel facet arthr osis. The paraspinous soft tissues are grossly within normal limits. Impression: Moderate to severe degenerative changes of the cervical spine without acute osseous abnormality. Please note that all CT scans at this [facility] use dose modulation, iterative reconstruction, and/or weight-based dosing when appropriate to reduce radiation dose to as low as reasonably achievable. Dictated by Estevan Tubbs MD @ 06/14/20 22 8:21:44 PM (Electronically Signed) Procedure Note Estevan Tubbs MD - 06/14/2022Fo rmatting of this note might be different from the original. For Patients: As a result of the Cures Act, medical imaging exams and procedure reports are released immediately into your electronic medical record. You may view this report before your referring provider. If you have questions, please contact yo health care provider. Indication: Trauma Technique: Volumetric multidetector CT images of th e cervical spine were obtained without the administration of IV contrast. Comparison: None available. Findings: The cervical vertebral body heights are grossly maintained with minimal endplate Schmorl`s defects. There is straightening of the normal cer vical lordosis without evidence of significant spondylolisthesis. There is no displaced fracture or disloc ation. There is severe multilevel degenerative disc disease with disc height loss and extensive ossification of the anterior and posterior longitudinal ligaments. There is moderate multilevel facet arthr osis. The paraspinous soft tissues are grossly within normal limits. Impression: Moderate to severe degenerative changes of the cervical spine without acute osseous abnormality. Please note that all CT scans at this [facility] use dose modulation, iterative reconstruction, and/or weight-based dosing when appropriate to reduce radiation dose to as low as reasonably achievable. Dictated by Estevan Tubbs MD @ 06/14/20 8:21:44 PM (Electronically Signed) Rosenda Blancas MD CT CT HEAD BRAIN WO (06/14/2022 7:49 PM CDT) Anatomical Region Laterality Modality HEAD, BRAIN Computed Tomography Specimen (Source) Anatomical Collection Method Collection Time Re ceived Time Location / / Volume Laterality 06/14/2022 8:16 PM CDT Narrative 06/14/2022 8:16 PM CDT For Patients: ??As a result of the Century Cures Act, medical imaging exams and procedure report s are released immediately into your [facility] medical record. ??You may view this report before your referring provider. ??If you have questions, please contact your health care provider. Indication: Trauma Technique: Volumetric multidetector CT images of e head were obtained without the administration of low osmolar intravenous contrast. Comparison: CT head April 09, 2021 Findings: There is no intra-axial or extra-axial f luid collection. There is no mass effect or midline shift . There is age-related cortical atrophy wi mild sulcal widening and ex vacuo dilatation of the lateral ventricles. There are chronic small vessel disease c hanges in the subcortical and periventricular white matter without lost sandoval-white differentiation. The orbits and their contents are grossl y within normal limits. The bony calvarium is grossly intact. There is minimal mucosal thickening with in the paranasal sinuses. The mastoid air cells are well aerated. Impression: Age-related and chronic small-vessel dis ease changes of the brain without acute intracranial abnormality. Please note that all CT scans at this [facility] use dose modulation, iterative reconstruction, and/or weight-based dosing when appropriate to reduce radiation dose to as low as reasonably achievable. Dictated by Estevan Tubbs MD @ 06/14/20 8:16:47 PM (Electronically Signed) Procedure Note Estevan Tubbs MD - 06/14/2022Fo rmatting of this note might be different from the original. For Patients: As a result of the ntury Cures Act, medical imaging exams and procedure reports are released immediately into your electronic medical record. You may view this report before your referring provider. If you have questions, please contact [facility] care provider. Indication: Trauma Technique: Volumetric multidetector CT images of e head were obtained without the administration of low osmolar intravenous contrast. Comparison: CT head April 09, 2021 Findings: There is no intra-axial or extra-axial f luid collection. There is no mass effect or midline shift . There is age-related cortical atrophy wi mild sulcal widening and ex vacuo dilatation of the lateral ventricles. There are chronic small vessel disease c hanges in the subcortical and periventricular white matter without lost sandoval-white differentiation. The orbits and their contents are grossl y within normal limits. The bony calvarium is grossly intact. There is minimal mucosal thickening with in the paranasal sinuses. The mastoid air cells are well aerated. Impression: Age-related and chronic small-vessel dis ease changes of the brain without acute intracranial abnormality. Please note that all CT scans at this [facility] use dose modulation, iterative reconstruction, and/or weight-based dosing when appropriate to reduce radiation dose to as low as reasonably achievable. Dictated by Estevan Tubbs MD @ 06/14/20 8:16:47 PM (Electronically Signed) Rosenda Blancas MD CT BLOOD CULTURE (06/14/2022 6:36 PM CDT)Only the most recent of4 resultswithin the time period is included. athologist Signature CULTURE No growth 06/19/2022 [place] to date. 9:55 PM CDT [facility] Specimen Anatomical Collection Method / Collection Time Recei laura Time (Source) Location / Volume Laterality Blood BLOOD SPECIMEN / Venipuncture / 06/14/2022 6:36 2021 6:42 Unknown Unknown PM CDT PM CDT Rosenda Blancas MD MICROBIOLOGY Performing Organization Address City/[facility] Phon e [facility] LABORATORY [address] [place] [address] TROPONIN I (06/14/2022 6:35 PM CDT)Only the most recent of2 resultswithin the time period is included. athologist Signature TROPONIN I 0.019 <0.034 06/14/2022 [place] ng/mL 7:11 PM CDT [facility] Specimen Anatomical Collection Method / Collection Time Recei laura Time (Source) Location / Volume Laterality Blood BLOOD SPECIMEN / Venipuncture / 06/14/2022 6:35 2021 6:42 Unknown Unknown PM CDT PM CDT Rosenda Blancas MD CHEMISTRY Performing Organization Address [facility] Phon e [facility] LABORATORY [address] [place] [address] (ABNORMAL) BRAIN NATRIURETIC PEPTIDE (06/14/2022 6:35 PM CDT)Only the most recent of4 resultswithin the time period is included. athologist [facility] BRAIN FILIPPO 116 (H) <100 pg/mL 06/14/2022 [place] PEPTIDE 7:12 PM CDT [facility] Specimen Anatomical Collection Method / Collection Time Recei laura Time (Source) Location / Volume Laterality Blood BLOOD SPECIMEN / Venipuncture / 06/14/2022 6:35 2021 6:42 Unknown Unknown PM CDT PM CDT Rosenda Blancas MD CHEMISTRY Performing Organization Address City/[facility] Phon e Number [facility] [address] [place] [address] (ABNORMAL) COVID 19 (06/14/2022 6:34 PM CDT)Only the most recent of2 results within the time period is included. [facility] gist Method Time Signature COVID 19 Detected (A) Not detected 06/14/2022 [facility] 6:59 PM CDT [facility] Specimen Anatomical Location / Collection Method Collection Selvin e Received Time (Source) Laterality / Volume Other SPECIMEN FROM Non-Blood / 06/14/2022 6:34 06/14/2022 6:37 NASOPHARYNGEAL Unknown PM CDT PM CDT STRUCTURE / Unknown Narrative [facility] - 6:59 PM CDT This test has been authorized by FDA und er an Emergency Use Authorization (EUA). This test is only authorized for the duration of time the declaration that circumstances exist justifying the authorization of th e emergency use of in vitro diagnostic tests for detection of SARS-CoV-2 virus and/or diagnosis of COVID-19 infection under section 564(b)(1) of the Act, 21 U.S.C. 360bbb-3(b) (1), unless the authorization is terminated or revoked sooner. Rosenda Blancas MD MICROBIOLOGY Performing Organization Address [facility] e [facility] LABORATORY [address] [place] [address] COVID 19 COLLECTION (06/14/2022 6:34 PM CDT)Only the most recent of2 results within the time period is included. [facility] gist Method Time Signature TESTING [facility] 06/14/2022 [place] [facility] Laboratory 6:38 PM [facility] Comment: Specimen submitted to [facility] for testing. Specimen Anatomical Location / Collection Method Collection Selvin e Received Time (Source) Laterality / Volume Other SPECIMEN FROM Non-Blood / 06/14/2022 6:34 06/14/2022 6:37 NASOPHARYNGEAL Unknown PM CDT PM CDT STRUCTURE / Unknown Rosenda Blancas MD SEND OUTS Performing Organization Address [facility] e [facility] LABORATORY [address] [place] [address] POTASSIUM (06/05/2022 5:47 AM CDT) athologist Signature POTASSIUM 4.0 3.5 - 5.0 06/05/2022 [place] mmol/L 6:36 AM [facility] Specimen Anatomical Collection Method / Collection Time Recei laura Time (Source) Location / Volume Laterality Blood BLOOD SPECIMEN / Venipuncture / 06/05/2022 5:47 2021 6:05 Unknown Unknown AM CDT AM CDT Víctor Schuler CHEMISTRY Performing Organization Address City/[facility]/ZIP Code Phon e Number [facility]ORY [address] [place] [address] (ABNORMAL) BLOOD GAS,VENOUS (06/03/2022 5:47 AM CDT)Only the most recent of2 resultswithin the time period is included. [facility] Method Time Signature PH, VENOUS 7.32 7.32 - 7.43 06/03/2022 [place] 6:09 AM [facility] PCO2, VENOUS 41 41 - 51 06/03/2022 [facility] mmHg 6:09 AM [facility] PO2, VENOUS 45 (H) 35 - 40 06/03/2022 [place] mmHg 6:09 AM [facility] HCO3,VENOUS 21 (L) 22 - 29 06/03/2022 [place] mmol/L 6:09 AM [facility] BASE EXCESS, -4.8 (L) -2.0 - 3.0 06/03/2022 [place] VENOUS, POCT 6:09 AM [facility] O2 SATURATION, 83 (H) 70 - 75 % 06/03/2022 [facility] VENOUS 6:09 AM [facility] PATIENT 37.0 Degrees C 06/03/2022 [place] TEMPERATURE 6:09 AM [facility] Specimen Anatomical Collection Method / Collection Time Recei laura Time (Source) Location / Volume Laterality Blood VENOUS BLOOD Venipuncture / 06/03/2022 5:47 06/03/2022 6:02 SPECIMEN / Unknown Unknown AM CDT AM CDT Víctor Sara Schuler DO CHEMISTRY Performing Organization Address City/[facility]/ZIP Code Phon e Number [facility]ORY [address] [place] [address] US RENAL BILATERAL (06/02/2022 3:34 PM CDT) Anatomical Region Laterality Modality Abdomen, KIDNEYS Ultrasound Specimen (Source) Anatomical Collection Method Collection Time Re ceived Time Location / / Volume Laterality 06/02/2022 5:18 PM CDT Impressions 06/02/2022 5:18 PM CDT 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 No perinephric fluid collection or other significant finding. Dictated by Dharmesh Clarke MD @ 06/02/2022 5:1 8:43 PM (Electronically Signed) Narrative 06/02/2022 5:18 PM CDT For Patients: ??As a result of the Cures Act, medical imaging exams and procedure report s are released immediately into your [facility] [place] medical record. ??You may view this report before your referring provider. ??If you have questions, please contact your health care provider. INDICATION: Renal transplant. Urinary tract infectio n. TECHNIQUE: Ultrasound renal and bladder complete. ? ?Sandoval-scale and color Doppler sonographic images were acquired of the kidneys and urinary bladder. COMPARISON: None. FINDINGS: Right kidney: 10 cm. Left kidney: Left k idney is not visualized. Right pelvic transplant kidney measures 12 cm. ??No masses or stones. Mild hydronephro sis in the renal transplant could be chronic. However, there are no comparison exams to assess for changes of this finding. No perinephric fluid collections. Bladder: Normal in caliber and appearanc e. Procedure Note Dharmesh Clarke MD - 06/02/2022Format ting of this note might be different from the original. For Patients: As a result of the Cures Act, medical imaging exams and procedure reports are released immediately into your electronic medical record. You may view this report before your referring provider. If you have questions, please contact [facility] health care provider. INDICATION: Renal transplant. Urinary tract infectio n. TECHNIQUE: Ultrasound renal and bladder complete. G ray-scale and color Doppler sonographic images were acquired of the kidneys and urinary bladder. COMPARISON: None. FINDINGS: Right kidney: 10 cm. Left kidney: Left k idney is not visualized. Right pelvic transplant kidney measures 12 cm. No masses or stones. Mild hydronephrosi s in the renal transplant could be chronic. However, there are no comparison exams to assess for changes of this finding. No perinephric fluid collections. Bladder: Normal in caliber and appearanc e. 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 No perinephric fluid collection or other significant finding. Dictated by Dharmesh Clarke MD @ 06/02/2022 5:1 8:43 PM (Electronically Signed) Víctor Schuler DO US (ABNORMAL) URINE CULTURE (06/02/2022 12:45 AM CDT) [facility] Method Time Signature CULTURE RESULT (A) 06/04/2022 [facility] 7:59 AM CDT LABORATORY-[facility] LABORATORY CULTURE >100,000 CFU/mL 06/04/2022 [facility] [employer] Escherichia coli 7:59 AM CDT LABORATORY- [facility] LABORATORY CULTURE <10,000 CFU/mL 06/04/2022 [facility] [employer] Multiple 7:59 AM CDT LABORATORY-[facility]ACK[facility] organisms TRAL probable LABORATORY contaminants Specimen Anatomical Collection Method Collection Time Receive d Time (Source) Location / / Volume Laterality Urine URINE SPECIMEN / Non-Blood / 06/02/2022 12:45 022 Unknown Unknown AM CDT 12:52 AM CDT Organism Antibiotic Method Susceptibility Escherichia coli TRIMETHOPRIM/SULF <=1/19: S Escherichia coli AMPICILLIN <=2: S Escherichia coli CEFAZOLIN-UC <=4: S Comment: Cefazolin-UC interp retations are for therapy of uncomplicated UTIs due to E.coli, K.pneumoniae, or P.m irablis. Escherichia coli GENTAMICIN <=1: S Escherichia coli CEFTRIAXONE <=1: S Escherichia coli CEFTAZIDIME <=1: S Escherichia coli LEVOFLOXACIN <=0.12: S Escherichia coli CIPROFLOXACIN <=0.25: S Escherichia coli PIPERACILLIN/TAZO <=4: S Escherichia coli AMPICILLIN/SULBACTAM <=2: S Escherichia coli CEFEPIME <=1: S Escherichia coli TOBRAMYCIN <=1: S Escherichia coli MEROPENEM <=0.25: S Escherichia coli NITROFURANTOIN <=16: S Cayetano Shay MD MICROBIOLOGY Performing Organization Address City/State/ZIP Code Phon e Number [facility] [id number] [place] [address] LABORATORY-[facility] 2000 LABORATORY INFLUENZA A/B/H1N1 PCR (06/02/2022 12:39 AM CDT) Patholo gist Method Time Signature INFLUENZA A NOT Detected 06/02/2022 [place] PCR 1:23 AM CDT [facility] INFLUENZA B NOT Detected 06/02/2022 [place] PCR 1:23 AM CDT [facility] Specimen Anatomical Location / Collection Method Collection Selvin e Received Time (Source) Laterality / Volume Other SPECIMEN FROM Non-Blood / 06/02/2022 12:39 06/02/2022 NASOPHARYNGEAL Unknown AM CDT 12:52 AM CDT STRUCTURE / Unknown Cayetano Shay MD MICROBIOLOGY Performing Organization Address City/[facility] Phon e Number [facility] LABORATORY [address] [place] [address] EKG 12 Lead (06/02/2022 12:29 AM CDT) Component Value Ref Range Test Analysis Performed Pathologis t Method Time At [facility] Interpretation Atrial fibrillation BEYON D NOW Nonspecific ST abnormality Abnormal ECG Ventricular Rate 79 BPM BEYOND NOW Atrial Rate 69 BPM BEYOND NOW P-R Interval ms BEYOND NOW QRS Duration 110 ms BEYOND NOW QT 362 ms BEYOND NOW QTc 415 ms BEYOND NOW P Anderson degrees BEYOND NOW R Anderson 26 degrees BEYOND NOW T Anderson 26 degrees BEYOND NOW Specimen Anatomical Collection Method Collection Time Receive d Time (Source) Location / / Volume Laterality 06/02/2022 12:29 06/02/2022 4:21 AM CDT AM CDT Cayetano Shay MD EKG ORD Performing Organization Address City/[facility] Phon e Number BEYOND NOW [place], [place] (ABNORMAL) C-REACTIVE PROTEIN (06/02/2022 12:25 AM CDT) Analysis Performed At Patho logist Time Signature C-REACTIVE 1.36 (H) <0.50 06/02/2022 [place] PROTEIN mg/dL 5:38 AM CDT [facility] Specimen Anatomical Collection Method Collection Time Receive d Time (Source) Location / / Volume Laterality Blood BLOOD SPECIMEN / [place] / 06/02/2022 12:25 022 Unknown Unknown AM CDT 12:29 AM CDT Giovanni Lara MD CHEMISTRY Performing Organization Address City/[facility]/ZIP [facility] Phon e Number [facility]ORATORY [address] [place] [address] LAB TRACKING EVENT (04/07/2022 11:40 AM CDT) Specimen Anatomical Collection Method Collection Time Receive d Time (Source) Location / / Volume Laterality Other (Other) Client Collect / 04/07/2022 11:40 2021 3:34 Unknown AM CDT PM CDT Doctor Unknown LAB BILL ONLY Performing Organization Address City/State/ZIP Code Phon e Number [facility] [id number] [place] [address] LABORATORY-CEN[facility]AL 2000 LABORATORY PATH TISSUE EXAM (04/07/2022 11:40 AM CDT) Component Value Ref Test Analysis Performed At [facility] gist Range Method Time Signature Case Report Pathology Report ?Case: [id number] ? 04/12/2022 [facility] Authorizing Provider: ??Unkn own, Doctor ?Collected: ? 04/07/2022 1140 ? 11:31 AM LAB ORATORY-CE Ordering Location: ? L [facility] LAB ?Received: ?04/08/2022 1609 ? CDT N TRAL Pathologist: ? Ricky Lisa ? LABORATORY ? MD Jessie ? Specimen: ?Right Clavicl e ? Final A) SKIN, RIGHT CLAVICLE, WOUND, BIOPSY: 04/12/2022 [facility] Electronically Diagnosis 1. Ulceration with serum crust and underlying granulat ion tissue 11:31 AM LABORATORY-CE signed by 2. Negative for malignancy CDT NTR Ricky Roberts LABORATORY Jose mcgill MD on 04/12/20 at 11:31 AM Comment The presence 04/12/2022 [facility] of blue and 11:31 AM LABORATORY-CE green ink are CDT NTRAL confirmed on LABORATORY tissue sections. Clinical Mr. Guthrie is 04/12/2022 [facility] Information a 72 y.o. with 11:31 AM LABORATORY-CE a right CDT NTRAL clavicle LABORATORY wound, post excision site. Gross A) Received in formalin, lab eled with the patient's name and right clavicle, are two skin punch biopsies. The first is a 0.3 x 0.3 x 0.4 cm skin punch biopsy. The skin surface displays a 0.2 x 0.1 cm 04/12/2022 [facility] Description depressed brown possible les ion. The [...] LABORATORY LH 04/08/2022 Microscopic The final 04/12/2022 [facility] Description diagnosis is 11:31 AM LABORATORY-CE based on CDT NTRAL microscopic LABORATORY examination of appropriate sections of all specimens. Additional 04/12/2022 [facility] Information Interpreted at [facility], Central Laboratory - [address], [place] [address] 11:31 AM LABORATORY-CE CDT NTRAL LABORATORY Specimen Anatomical Collection Method Collection Time Receive d Time (Source) Location / / Volume Laterality Other (Right 04/07/2022 11:40 04/08/2022 4:09 Clavicle) AM CDT PM CDT Doctor Unknown PATHOLOGY/CYTOLOGY Performing Organization Address City/State/ZIP Code Phon e Number [facility] [address] [place] [address] LABORATORY-CENTRAL 2000 LABORATORY from Last 3 Months Additional Health Concerns Infection Onset Date Last Indicated MRSA ClearanceComment: If >12 months sin ce positive culture, precautions can be discontinued if patient has no MRSA risk factors. 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 For evaluation of subsequent COVID+ results, refer to the algorithm on the AKN: Isolation Precaution Recommendations for Patients with History of COVID-19 Infection. Insurance Payer Benefit Plan / Subscriber ID Effective Phone Address T e Group Dates MEDICARE PART MEDICARE PART A [id number] 2011-Prese A TTN: CLAIMS A - HB USE HB ONLY nt [address] [place] [address] MEDICARE PART MEDICARE PART B [id number] 2012-Pres A TTN: CLAIMS B - HB USE HB ONLY ent [address] [place] [address] MEDICARE - PB MEDICARE PB [id number] 2014-Prese ATTN: CLAIMS USE ONLY ONLY nt [address] [place] [address] BLUE CROSS BLUE CROSS OF [id number] 2016-Prese [id number] [facility] [place] [address] BLUE CROSS BLUE CROSS OF [id number] 2013-Prese [address] [facility] [place] [address] MEDICARE PPS HC MEDICARE PPS [id number] 2011-Prese [address] [place] [address] (Home) [place] [id number] Diego Guthrie Personal/Family Self [address] (Home) [place] [address] Diego Guthrie Personal/Family Self [address] (Home) [place] [address] Diego Guthrie Senior Care Self [address] (Home) [place] [id number] Advance Directives Documents on File Type Date Recorded Patient Supervisor Money Room Explanati on POLST 09/26/2020 Latest Code Status on File Code Status Date Activated Date Inactivated Comments Full Code 06/15/2022 1:22 AM 06/20/2022 3:42 PM Code Status Discussion: Reviewed Preferences Full Code 06/02/2022 5:13 AM 06/05/2022 3:55 PM Code Status Discussion: Reviewed Preferences Full Code 01/11/2022 6:35 AM 01/14/2022 1:21 PM Code Status Discussion: Reviewed Preferences Full Code 02/05/2021 11:25 AM 02/05/2021 5:59 PM Code Status Discussion: Not Discussed Full Code 09/22/2020 3:20 PM 09/26/2020 3:54 PM Code Status Discussion: Discussed Care Teams Pediatrician Active Practice Relationship Specialty Start Date End Date Momo Forbes MD PCP - General Family Practice 01/22/211999 [place] [address]
--- OUTSIDE RECORDS SUMMARY | 2022-06-23 11:18 | XMS_ITS | Encounter Summary ---
:1950 Author Organization [place] Address [address] [place] [address] Care Team Providers Name Role Phone Momo Forbes Primary Care Provider Joseph Quintana MD Unavailable Reason for Visit Reason Onset Date Comments Transplant 06/17/2022 Covid reassessment Encounter Details Date Type Department Care Team Description 06/17/2022 Telephone [facility] Gretta Peacock RN [facility] [address] [place] [phone] Social History Tobacco Use Types Packs/Day Years Used Date Smoking Tobacco: Former Cigars Quit : 08/22/2006 Smokeless Tobacco: Never Alcohol Use Standard Drinks/Week Comments Yes 0 (1 standard drink = 0.6 oz pure alcoho l) occasional drink. Sex Assigned at Date Recorded Not on file documented as of this encounter Miscellaneous Notes Telephone Encounter - Gretta Peacock RN - 06/17/2022 9:00 PM CDT Images from the original note were not included. ISSUE: Covid + 06/01/2022 with inpatient stay at [facility] where MMF was held. Resumed MMF at 500 mg bid at discharge. PLAN: call to assess symptoms on Covid 19. If symptoms have improved okay to increase MMF to baseline dose of 750 mg bid Satish Gómez MD Sveiven, Sara, RN I would actually have him take MMF 500mg bid and if feeling ok in 1 week increase to 750mg bid OUTCOME: Patient was readmitted to [facility] with complications of Covid 19 per patient. Difficult to hear patient as he has bad cell phone service at hospital. Spoke with staff member on inpatient unit. Patient is private information unable to be given to RNCC. Provided provider to providernumber to staff member to pass along to RN or inpatient provider. V/U of calling [facility] transplant nephrology to discuss IS. Gretta Peacock affiliate marketing managerFeed Handler [phone] documented in this encounter Plan of Treatment Not on filedocumented as of this encounter Visit Diagnoses Not on filedocumented in this encounter Care Teams Patroller Relationship Specialty Start Date End Date Momo Forbes PCP - General Family Practice 01/02/14 [facility] [address] [place] [address] Joseph Quintana, Assigned Nephrology 03/29/21 MD Provider [address] [place] [address] [address] [place] [address] documented as of this encounter
--- OUTSIDE RECORDS SUMMARY | 2022-06-23 11:18 | XMS_ITS | Encounter Summary ---
:1950 Author Organization [place] Address [address] [place] [address] Care Team Providers Name Role Phone Momo Forbes Primary Care Provider Mariano, Joseph Durham MD Unavailable Reason for Visit Reason Onset Date Comments Left Message To Call 05/06/2022 Left 05/06/2022 at 11:55PM., Wanted to discuss lab results Encounter Details Date Type Department Care Team Description 05/06/2022 [facility] Gretta Peacock RN Left Message To Call Transplant Clinic (Left 05/06/2022 at [facility] 11:55PM., Wanted to [place], [place] discuss lab results) [phone] Social History [...] [place] - 05/06/2022 12:28 PM CDT Left 05/06/2022 at 11:55PM., Wanted to discuss lab results documented in this encounter Plan of Treatment Not on filedocumented as of this encounter Visit Diagnoses Not on filedocumented in this encounter Care Teams Flame Channeler Relationship Specialty Start Date End Date Momo Forbes PCP - General Family Practice 01/02/14 [facility] [address] [place] [address] Joseph Quintana, Assigned Nephrology 03/29/21 MD Provider 717 [facility] 353 [facility] [address] [place] [address] documented as of this encounter
--- OUTSIDE RECORDS SUMMARY | 2022-06-23 11:18 | XMS_ITS | Encounter Summary ---
:1950 Author Organization [place] Address [address] [place] [address] Care Team Providers Name Role Phone Momo Forbes Primary Care Provider Joseph Quintana MD Unavailable Reason for Visit Reason Onset Date Comments Call Back 06/18/2022 Medications Encounter Details Date Type Department Care Team Description 06/18/2022 Telephone [facility] Satish Gómez MD Call Back (Medications) Nephrology Clinic [address] [place] [phone] Social History Tobacco Use Types Packs/Day Years Used Date Smoking Tobacco: Former Cigars Quit : 08/22/2006 Smokeless Tobacco: Never Alcohol Use Standard Drinks/Week Comments Yes 0 (1 standard drink = 0.6 oz pure alcoho l) occasional drink. Sex Assigned at Date Recorded Not on file documented as of this encounter Miscellaneous Notes Telephone Encounter - Amanda Nguyen RN - 06/22/2022 12:29 PM CDT Call placed to Diego Guthrie to follow up after hospital discharge. Diego states he was discharged from OSH on 06/20/22- he was hospitalized again with SOB /pneumonia. He reports he is doing wellat home. He is a little fatigued, but no SOB and he is not on oxygen. Per notes, if stable, he should resume MMF. Diego does report he is still on tacrolimus and was restarted on MMF 750 mg bid. He wasnot discharged on any steroids. RNCC recommended he complete set of transplant labs this month. Diego v/sneha, lab orders sent. Dr. Gómez updated. Telephone Encounter - Adriana Raza - 06/21/2022 2:28 PM CDT General Route to SUPERVISOR CARDING Reason for call: Diego was returning a missed call Call back needed? Yes Return Call Needed Same as documented in contacts section When to return call?: Same day: Route High Priority Telephone Encounter - Luann Lagunas - 06/18/2022 12:12 PM CDT [facility] Call Center Phone Message May a detailed message be left on voicemail: no Reason for Call: Katrina called stating Dr. Gómez called looking to confirm what current medications the pt is taking. She provided this list of medications the pt is currently taking: - amlodipine 2.5mg tab (2x daily) - baricitinib 1mg tab (1x daily) - tessalon 100mg cap (as needed) - coreg 6.25mg tab (2x daily) - decadron 6mg tab (1x daily) - lexapro 20mg tab (1x daily) - mucinex 600mg (as needed daily) - heparin 5000 units (every 12 hours) - sliding scale 3 times a day with meals - bedtime sliding scale - novalog 10 units w/ every meal (b,l,d) - lantus 40 units (before bedtime) - protonix 40mg (2x daily) - crestor 10mg (at bedtime) - prograf 0.5mg cap in evening and 1mg in morning - flomax 0.4 mg (at bedtime) - coumadin 5mg (tonight at bedtime) - lasics 10mg IV (1 time dose today) Please have Dr. Gómez reach out to [facility] [phone] - [facility]. Thanks Action Taken: Message routed to: [facility] Neph Travel Screening: Not Applicable documented in this encounter Plan of Treatment Not on filedocumented as of this encounter Visit Diagnoses Not on filedocumented in this encounter Care Teams Band Instrument Repairer Relationship Specialty Start Date End Date Momo Forbes PCP - General Family Practice 01/02/14 [facility] [address] [place] [address] Joseph Quintana, Assigned Nephrology 03/29/21 MD Provider 717 [facility] 353 [facility] [address] [place], [place] [address] documented as of this encounter
--- OUTSIDE RECORDS SUMMARY | 2022-06-23 11:18 | XMS_ITS | Encounter Summary ---
:1950 Author Organization [place] Address [facility] [place] [address] Care Team Providers Name Role Phone Momo Forbes Primary Care Provider Joseph Quintana MD Unavailable Reason for Visit Reason Onset Date Comments Transplant 06/07/2022 Covid reassessment Encounter Details Date Type Department Care Team Description 06/07/2022 Telephone [facility] Gretta Peacock RN [facility] [address] [place] [phone] Social History Tobacco Use Types Packs/Day Years Used Date Smoking Tobacco: Former Cigars Quit : 08/22/2006 Smokeless Tobacco: Never Alcohol Use Standard Drinks/Week Comments Yes 0 (1 standard drink = 0.6 oz pure alcoho l) occasional drink. Sex Assigned at Date Recorded Not on file documented as of this encounter Miscellaneous Notes Telephone Encounter - Gretta Peacock RN - 06/07/2022 12:00 PM CDT Images from the original note were not included. ISSUE: Covid + 06/01/2022, Patient states he was not feeling well for a while before that. Mycophenolate was held while inpatient at [facility]. Patient was discharged yesterday, Patient resumed his usual dose of MMF 750 mg bid. Current symptoms: cough, denies SOB. States he is feeling well. Will update transplant nephrology. Gretta Peacock RN Glue Sprayer [phone] ADDENDUM: Satish Gómez MD Sveiven, Sara, RN I would actually have him take MMF 500mg bid and if feeling ok in 1 week increase to 750mg bid Patient v/u of taking MMF 500 mg bid for one week. Will reassess symptoms in one week. Gretta Peacock chargeback analystGlue Sprayer [phone] documented in this encounter Plan of Treatment Not on filedocumented as of this encounter Visit Diagnoses Not on filedocumented in this encounter Care Teams Rouge Sifter And Miller Relationship Specialty Start Date End Date Momo Forbes PCP - General Family Practice 01/02/14 [facility] [address] [place] [address] Joseph Quintana, Assigned Nephrology 03/29/21 Provider [address] [place], [place] [address] documented as of this encounter
--- OUTSIDE RECORDS SUMMARY | 2022-06-23 11:18 | XMS_ITS | Clinical Summary ---
:1950 Author Organization [place] Address [facility] [place] [address] Care Team Providers Name Role Phone Momo [...] Problem list name updated by automated p MobileRQess. Provider to review Gout 12/02/2011 Peripheral neuropathy 12/02/2011 Diabetic retinopathy 12/02/2011 HTN, kidney transplant related 12/02/2011 Overview: Problem list name updated by automated p [employer]. Provider to review DM (diabetes mellitus), type 2 12/02/2011 History of tobacco use 12/02/2011 Thrombocytopenia 12/02/2011 Malaise and fatigue 12/02/2011 Overview: Problem list name updated by automated p [employer]. Provider to review Depression Resolved Problems Problem [...] Date Type Specialty Care Team Description 06/18/2022 Telephone Nephrology Satish Gómez, Call Back (Medications) 06/17/2022 Telephone [facility] Gretta Peacock, Transplant (C ovid promotions specialist reassessment/) 06/07/2022 Telephone [facility] Gretta Peacock, Transplant (C ovid promotions specialist reassessment ) 06/05/2022 Telephone Solid Organ Evelyn Schuster, promotions specialist 06/02/2022 Documentation Only NephSatish Reyes MD 05/06/2022 Telephone [facility] Gretta Peacock, Left Message To promotions specialist Call (Left VM 05/06/2022 at 11:55PM., Wante d to discuss lab results) 05/04/2022 Telephone [facility] Gretta Peacock Transplant La b promotions specialist (Elevated serum creatinine and proteinuria) 05/02/2022 Telephone [facility] Gretta Peacock, Erroneous promotions specialist encounter-disre sebastian 04/29/2022 External Order Lab Outside, Results Provider 04/13/2022 Telephone [facility] Gretta Peacock, Voicemail promotions specialist from Last 3 Months Immunizations Name Administration [...] Comments Blood Pressure 169/76 10/09/2019 2:35 PM CAN REFORMING MACHINE OPERATOR Pulse 67 10/09/2019 2:35 PM CAN REFORMING MACHINE OPERATOR Temperature 36.5 ??C (97.7 ??F) 10/17/2018 1:54 PM CAN REFORMING MACHINE OPERATOR Respiratory Rate 18 10/25/2016 4:39 PM CAN REFORMING MACHINE OPERATOR Oxygen Saturation 95% 10/09/2019 2:35 PM CAN REFORMING MACHINE OPERATOR Inhaled Oxygen Concentration - - Weight 132.5 kg (292 lb 1.6 oz) 10/09/2019 2:35 PM CAN REFORMING MACHINE OPERATOR Height 182.9 cm (6') 10/10/2017 2:25 PM CAN REFORMING MACHINE OPERATOR Body Mass Index 39.62 10/10/2017 2:25 PM CAN REFORMING MACHINE OPERATOR Plan of Treatment Health Maintenance Due Date [...] 03/17/2017 03/17/2016, 05/05/2011 Years (3 - PPSV23 if available, else PCV20) FALL RISK ASSESSMENT 10/10/2018 10/10/2017 COVID-19 [...] this topic Medical Devices Explanted Type Area Authorization Coordinator Device Shelf Model / Identifier Expiration Serial / Date Lot Stent Ureteral Childress Renal Transplant [id number] Right: [employer] 11/19/2016 [id number] / Implanted: Qty: 1 on 02/02/2014 by Migel Viveros MD at [facility] [employer] / Explanted: Qty: 1 on 04/01/2014 by Celina Helton MD at [facility] [id number] Procedures Procedure Name Priority Date/Time Associated Comments [...] Platelets & Differential (04/29/2022 11:40 AM CDT) [facility] gist Method Time Signature WBC Count 4.89 [...] Volume Laterality Blood 04/29/2022 11:40 AM CDT Yohana LOPEZ PFT - 04/30/2022 12:29 PM CDT Verified by Andrade Barajas on 04/30/2022. Provider Outside LAB - BLOOD ORDERABLES Performing Organization Address City/State/ZIP Code Phon e Number [place] PFT NON-INTERFACED (ONBASE SCANS) Tacrolimus by Tandem [...] Organization Address City/State/ZIP Code Phon e Number MARLENEBea PFT NON-INTERFACED (ONBASE SCANS) from Last 3 Months Insurance Payer Benefit Plan / Subscriber ID Effective Phone Address T ype Group Dates MEDICARE MEDICARE [id number] 2011-Prese [phone] ATTN [place] Medicare nt 40 [address] [place] [address] BCBS BCBS OF [place] [id number] 2016-Prese [phone] [address] [address] Indemnity nt 00 [place] [address] Diego Guthrie Personal/Family Self [address] [place] ([place]) [place] [address] Advance Directives For more information, please contact: [phone] Latest Code Status on File Code Status Date Activated Date Inactivated Comments Full Code 04/01/2014 9:03 AM Code Status History Code Status Date Activated Date Inactivated Comments Full Code 02/08/2014 7:12 AM 04/01/2014 9:03 AM Full Code 02/03/2014 12:56 AM 02/08/2014 7:12 AM Care Teams Preschool Paraprofessional Relationship Specialty Start Date End Date Momo Forbes PCP - General Family Practice 01/02/14 [facility] [address] [place] [address] Joseph Quintana, Assigned Nephrology 03/29/21 MD Provider [address] [place] [address] [address] [place], [place] [id number]
--- OUTSIDE RECORDS SUMMARY | 2022-06-23 11:19 | XMS_ITS | Encounter Summary ---
:1950 Author Organization [place] Address [address] [place] [address] Care Team Providers Name Role Phone Momo Forbes Primary Care Provider Mariano, Joseph Durham MD Unavailable Reason for Visit Reason Onset Date Comments Transplant Lab 12/10/2021 Encounter Details Date Type Department Care Team Description 12/10/2021 Telephone [facility] Transplant Mati Recinos RN Transplant Lab Clinic [address] [place] [address] [phone] Social History Tobacco Use Types Packs/Day [...] DSA next week. Lab orders faxed to patientslocal lab. Telephone Encounter - Cristy Chen LPN [...] filedocumented in this encounter Care Teams Mail Room Clerk Relationship Specialty Start Date End Date Momo Forbes PCP - General Family Practice 01/02/14 [facility] [address] [place] [address] Joseph Quintana, Assigned Nephrology 03/29/21 MD Provider [address] [place] [address] [address] [place], [place] [id number] documented as of this encounter
--- OUTSIDE RECORDS SUMMARY | 2022-06-23 11:19 | XMS_ITS | Encounter Summary ---
:1950 Author Organization [place] Address [address] [place] [address] Care Team Providers Name Role Phone Momo Forbes Primary Care Provider Joseph Quintana MD Unavailable Encounter Details Date Type Department Care Team Description 11/16/2021 External Order [facility] Outside, Provide r Results Molecular Diagnostic s [address] [place] [phone] Social History Tobacco Use Types Packs/Day Years [...] (ABNORMAL) Lipid Profile (11/16/2021 7:12 PM CDT) [facility] Method Time Signature Cholesterol 98 90 - [...] Platelets & Differential (11/16/2021 4:35 PM CDT) [facility] Method Time Signature WBC Count 6.8 4.5 [...] Blood 11/16/2021 4:35 PM CDT Narrative JESSICA ANDREAT - 12/02/2021 8:18 AM CDT Verified by Priscilla Mcdaniel on 12/02/2021. Provider Outside LAB - BLOOD ORDERABLES Performing Organization Address City/State/ZIP Code Phon e Number JESSICA PFKofi NON-INTERFACED (ONBASE SCANS) (ABNORMAL) Hemoglobin A1c (11/16/2021 2:05 PM CDT) Analysis Performed At Patho logist Time Signature Hemoglobin A1C 10.2 (H) <=6.9 % NON-INTERFACE (External) D (ONBASE SCANS) Specimen (Source) Anatomical Collection Method Collection Time Re ceived Time Location / / Volume Laterality Blood 11/16/2021 2:05 PM CDT Narrative JESSICA PFT - 12/02/2021 8:17 AM CDT Verified by Praful Huff on 2021. Momo Forbes LAB - BLOOD ORDERABLES Performing Organization Address City/State/ZIP Code Phon e Number [facility] PFT NON-INTERFACED (ONBASE SCANS) documented in this encounter Visit Diagnoses Not on filedocumented in this encounter Care Teams Call Center Support Consultant Relationship Specialty Start Date End Date Momo Forbes PCP - General Family Practice 01/02/14 [facility] [address] [place] [address] Joseph Quintana, Assigned Nephrology 03/29/21 Provider 7 [facility] 353 [facility] [address] [place] [address] documented as of this encounter
--- OUTSIDE RECORDS SUMMARY | 2022-06-23 11:19 | XMS_ITS | Encounter Summary ---
:1950 Author Organization [place] Address [address] [place] [address] Care Team Providers Name Role Phone ForbesMomo Primary Care Provider Reason for Visit Reason Onset Date Comments Transplant 07/11/2020 Encounter Details Date Type Department Care Team Description 07/11/2020 Telephone [facility] Barbie Ugalde Transplant Clinic BOGDAN Nam [address] [place], [place] [phone] Social History Tobacco Use Types Packs/Day Years Used Date Smoking Tobacco: Former Cigars Quit : 08/22/2006 Smokeless Tobacco: Never Alcohol Use Standard Drinks/Week Comments Yes 0 (1 standard drink = 0.6 oz pure alcoho l) occasional drink. Sex Assigned at Date Recorded Not on file documented as of this encounter Miscellaneous Notes Telephone Encounter - Barbie Ugalde RN - 07/11/2020 2:11 PM AUTOMATIC MAINTAINER ISSUE: Potassium 5.2 on 07/08/20. PLAN: Assess for high dietary intake of potassium. Encouraged Diego to reduce the amount of bananas and potatoes he admitted to eating high amounts of. OUTCOME: Please have pt repeat BMP in 1 week. Orders sent MATIC MAINTAINER Telephone Encounter - Barbie Ugalde RN - 07/11/2020 1:41 PM AUTOMATIC MAINTAINER ISSUE: Tacrolimus IR level 2.2 on 07/08/20 [...] for repeatlabs. Patient voiced understanding of plan. 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
--- OUTSIDE RECORDS SUMMARY | 2022-06-23 11:19 | XMS_ITS | Encounter Summary ---
:1950 Author Organization [place] Address [facility] [place] [address] Care Team Providers Name Role Phone Forbes, Ton Primary Care Provider Reason for Visit Reason Onset Date Comments Transplant Immunosuppression Management 08/11/2020 Encounter Details Date Type Department Care Team Description [facility]galde [facility] nsplant Transplant Clinic BOGDAN Nam Immunosuppression [address] [place] [address] [place] [address] Social History Tobacco [...] Barbie Ugalde RN - 08/11/2020 4:16 PM MEDICAL ASSISTANT FLOAT ISSUE: Tacrolimus IR level 11.7 on 08/08/20, [...] and repeat labs in 1 week. Barbie Ugalde RN, BSN Solid Organ Transplant, Post Kidney and Pancreas Transplant Reimbursement Consultant [phone] OUTCOME: Spoke with patient, they confirm accurate trough level and current dose 2 mg BID. Patient confirmed dose change to 1.5 mg BID and to repeat labs in 1 weeks. Orders sent to preferred pharmacy for dose change and lab for repeat labs. Patient voiced understanding of plan. CAL ASSISTANT FLOAT documented in this encounter Plan of Treatment Not on filedocumented as of this encounter Visit Diagnoses Diagnosis Kidney transplanted - Primary Kidney replaced by transplant -donor kidney transplant recipie nt Kidney replaced by transplant documented in this encounter Care Teams Ocular Care Technologist Relationship Specialty Start Date End Date Momo Forbes PCP - General Family Practice 01/02/14 [facility] [address] [place] [address] documented as of this encounter
--- OUTSIDE RECORDS SUMMARY | 2022-06-23 11:19 | XMS_ITS | Encounter Summary ---
:1950 Author Organization [place] Address [facility] [place] [address] Care Team Providers Name Role Phone Momo Forbes Primary Care Provider Joseph Quintana MD Unavailable Reason for Visit Reason Onset Date Comments Refill Request 08/25/2021 Encounter Details Date Type Department Care Team Description 08/25/2021 Refill [facility] Transplant Debbie Calderon LPN Refill Request Clinic [address] [place] [phone] Social History Tobacco Use Types [...] transplant documented in this encounter Care Teams Centrifugal Wax Molder Relationship Specialty Start Date End Date Momo Forbes PCP - General Family Practice 01/02/14 [facility] [address] [place] [address] Joseph Quintana, Assigned Nephrology 03/29/[address] [place] [address] 353 [facility] [address] [place] [address] documented as of this encounter
--- OUTSIDE RECORDS SUMMARY | 2022-06-23 11:19 | XMS_ITS | Encounter Summary ---
:1950 Author Organization [place] Address [address] [place] [address] Care Team Providers Name Role Phone Momo Forbes Primary Care Provider Joseph Quintana MD Unavailable Reason for Visit Reason Onset Date Comments Transplant 01/21/2022 Hyperglycemia, eleva moni [facility] Encounter Details Date Type Department Care Team Description 01/21/2022 Telephone [facility] Gretta Peacock RN Trans plant Transplant Clinic (Hyperglycemia, elevated [address] [facility]) [place] [address] Social History Tobacco Use Types [...] 12:07 PM CDT ISSUE: trend up in [facility], hyperglycemia OUTCOME: phone call attempted X3. Will send letter via mail. Gretta Peacock patient coordinator front deskHandbag Frames Inspector [phone] documented in this encounter Plan of Treatment Not on filedocumented as of this encounter Visit Diagnoses Not on filedocumented in this encounter Care Teams Music Manager Relationship Specialty Start Date End Date Momo Forbes PCP - General Family Practice 01/02/14 [facility] [address] [place] [address] Joseph Quintana, Assigned Nephrology 03/29/21 MD Provider [address] [place] [address] [address] [place] [address] documented as of this encounter
--- OUTSIDE RECORDS SUMMARY | 2022-06-23 11:19 | XMS_ITS | Encounter Summary ---
:1950 Author Organization [place] Address [address] [place] [address]. [place] [address] Care Team Providers Name Role Phone Momo Forbes Primary Care Provider Joseph Quintana MD Unavailable Reason for Visit Reason Onset Date Comments Medication Refill Refill Request 08/20/2021 Encounter Details Date Type Department Care Team Description 08/20/2021 Refill [facility] Joseph Quintana on Refill; Nephrology Clinic MD Herminio Refill Request [address] [facility] 353 [facility] [address] [place], [place] [phone] Social History Tobacco Use Types Packs/Day Years [...] transplant documented in this encounter Care Teams Attorney General Relationship Specialty Start Date End Date Momo Forbes PCP - General Family Practice 01/02/14 [facility] [address] [place] [address] Joseph Quintana, Assigned Nephrology 03/29/21 MD Provider [address] [facility] 353 [facility] [address] [place] [address] documented as of this encounter
--- OUTSIDE RECORDS SUMMARY | 2022-06-23 11:19 | XMS_ITS | Encounter Summary ---
:1950 Author Organization [place] Address [address] [facility] [place] [address] Care Team Providers Name Role Phone Momo Forbes Primary Care Provider Joseph Quintana MD Unavailable Encounter Details Date Type Department Care Team Description 07/08/2020 External Order [facility] Outside, Provider Results Transplant Clinic 9 [place] [address] Social History Tobacco Use [...] 9:23 AM R esults for this DIFFERENTIAL TEACHERS AIDE procedure are i n the results section. TACROLIMUS BY TANDEM Routine 07/08/2020 9:23 AM R esults for this MASS SPECTROMETRY TEACHERS AIDE procedure are in the results section. PROTEIN RANDOM URINE Routine 07/08/2020 9:23 AM R esults for this TEACHERS AIDE procedure are i n the results section. HEMOGLOBIN A1C Routine 07/08/2020 9:23 AM Results for this TEACHERS AIDE procedure are i n the results section. HEMOGLOBIN A1C Routine 07/08/2020 9:23 AM Results for this TEACHERS AIDE procedure are i n the results section. BASIC METABOLIC PANEL Routine 07/08/2020 9:23 AM Results for this TEACHERS AIDE procedure are i n the results section. documented in this encounter Results (ABNORMAL) Protein random urine with Creat Ratio (07/08/2020 9:23 AM TEACHERS AIDE) Analysis Performed At [facility] Time Signature Protein Random 73 mg/dL LABDE SCAN Urine (External) Creatinine 65 mg/dL LABDE SCAN Urine mg/dL (External) Protein Total 1.12 (H) 0 - 0.19 LABDE SCAN Ur per Cr (External) Specimen (Source) Anatomical Collection Method Collection Time Re ceived Time Location / / Volume Laterality Urine specimen 07/08/2020 9:23 AM (specimen) TEACHERS AIDE Narrative BREEZE PFT - 07/11/2020 11:13 AM TEACHERS AIDE Verified by Praful Huff on 2019. Patient Reported LAB - URINE ORDERABLES Performing Organization Address City/State/ZIP Code Phon e Number BREEZE PFT LABDE SCAN (ABNORMAL) Hemoglobin A1c (07/08/2020 9:23 AM TEACHERS AIDE) Analysis Performed At [facility] Time Signature Hemoglobin A1C 12.3 (H) 0 - 5.6 % LABDE SCAN (External) Specimen (Source) Anatomical Collection Method Collection Time Re ceived Time Location / / Volume Laterality Blood specimen 07/08/2020 9:23 AM (specimen) TEACHERS AIDE Narrative BREEZE PFT - 07/11/2020 11:13 AM TEACHERS AIDE Verified by Praful Huff on 2019. Patient Reported LAB - BLOOD ORDERABLES Performing Organization Address City/[facility]/ZIP Code Phon e Number BREEZE PFT LABDE SCAN Tacrolimus level (07/08/2020 9:23 AM TEACHERS AIDE) P athologist Signature Tacrolimus(FK- 2.2 See scanned LABDE SCAN 506) report ng/mL (External) Specimen (Source) Anatomical Collection Method Collection Time Re ceived Time Location / / Volume Laterality Blood specimen 07/08/2020 9:23 AM (specimen) TEACHERS AIDE Narrative BREEZE PFT - 07/11/2020 11:13 AM TEACHERS AIDE Verified by Praful Huff on 2019. Patient Reported LAB - BLOOD ORDERABLES Performing Organization Address City/State/ZIP Code Phon e Number BREEZE PFT LABDE SCAN (ABNORMAL) Hemoglobin A1c (07/08/2020 9:23 AM TEACHERS AIDE) Analysis Performed At [facility] logist Time Signature Hemoglobin A1C 12.3 (H) 0 - 5.6 % LABDE SCAN (External) Specimen (Source) Anatomical Collection Method Collection Time Re ceived Time Location / / Volume Laterality Blood specimen 07/08/2020 9:23 AM (specimen) TEACHERS AIDE Narrative MARLENEE PFT - 07/09/2020 11:03 AM TEACHERS AIDE Verified by Andrade Barajas on 07/09/2020. Patient Reported LAB - BLOOD ORDERABLES Performing Organization Address City/State/ZIP Code Phon e Number BREEZE PFT LABDE SCAN (ABNORMAL) Basic metabolic panel (07/08/2020 9:23 AM TEACHERS AIDE) Analysis Performed At [facility] logist Time Signature Calcium 10.1 8.4 [...] Laterality Blood specimen 07/08/2020 9:23 AM (specimen) TEACHERS AIDE Narrative JESSICA PFT - 07/09/2020 11:02 AM TEACHERS AIDE Verified by Andrade Barajas on 07/09/2020. Patient Reported LAB - BLOOD ORDERABLES Performing Organization Address City/State/ZIP Code Phon e Number BREEZE PFT LABDE SCAN (ABNORMAL) CBC with platelets differential (07/08/2020 9:23 AM TEACHERS AIDE) [facility] Method Time Signature WBC Count 4.32 [...] Laterality Blood specimen 07/08/2020 9:23 AM (specimen) TEACHERS AIDE Narrative JESSICA PFT - 07/09/2020 10:52 AM TEACHERS AIDE Verified by Praful Huff on 2019. Patient Reported LAB - BLOOD ORDERABLES Performing Organization Address City/State/ZIP Code Phon e Number BREEZE PFT LABDE SCAN documented in this encounter Visit Diagnoses Not on filedocumented in this encounter Care Teams Gill Net Stringer Relationship Specialty Start Date End Date Momo Forbes PCP - General Family Practice 01/02/14 [place] [id number] Joseph Quintana, Assigned Nephrology 03/29/21 MD Provider [address] [place] [address] documented as of this encounter
--- OUTSIDE RECORDS SUMMARY | 2022-06-23 11:19 | XMS_ITS | Encounter Summary ---
:1950 Author Organization [place] Address [address] [place] [address] Care Team Providers Name Role Phone Momo Forbes Primary Care Provider Joseph Quintana MD Unavailable Encounter Details Date Type Department Care Team Description 01/27/2021 External Order [facility] Outside, Provider Results Transplant Clinic [address] [place] [phone] Social History Tobacco Use Types Packs/Day [...] (ABNORMAL) Hemoglobin A1c (01/27/2021 11:45 AM CDT) P athologist Signature Hemoglobin A1C 7.4 (H) <=6.9 [...] SCAN Tacrolimus level (01/27/2021 11:45 AM CDT) P athologist Signature Tacrolimus(FK-5 7.3 5.0 - 15.0 [...] Basic metabolic panel (01/27/2021 11:45 AM CDT) Patholo gist Method Time Signature Glucose 156 (H) [...] AM CDT Narrative BREEZE PFT - 01/28/2021 10:21 AM CDT Verified by Ruperto Pepper on 01/29/20 21. Patient Reported LAB - BLOOD ORDERABLES Performing Organization Address City/State/ZIP Code Phon e Number JESSICA PFT LABDE SCAN (ABNORMAL) CBC with platelets differential (01/27/2021 11:45 AM CDT) [facility] gist Method Time Signature WBC [...] on filedocumented in this encounter Care Teams Coast[place] Specialist Relationship Specialty Start Date End Date Momo Forbes PCP - General Family Practice 01/02/14 [facility] [address] [place] [address] Joseph Quintana, Assigned Nephrology 03/29/21 MD Provider [address] [place] [address] [address] [place] [address] documented as of this encounter
--- OUTSIDE RECORDS SUMMARY | 2022-06-23 11:19 | XMS_ITS | Encounter Summary ---
:1950 Author Organization [place] Address [address] [place] [address] Care Team Providers Name Role Phone ForbesMomo Primary Care Provider Reason for Visit Reason Comments RECHECK Follow Up [place] Encounter Details Date Type Department Care Team Description 03/05/2021 Virtual Visit [facility] Joseph Quintana HTN, kevan dney transplant related (Primary Dx); Nephrology Clinic MD Herminio Kidney replaced by transplant; [address] Aftercare following organ tr ansplant; [address] [place] [address] SE [place] 353 [facility] Immunosu ppression (H); [place] [address] Vitamin D deficiency; [place] [phone] [phone] Social History Tobacco Use Types Packs/Day Years [...] as of this encounter Patient Instructions Patient InstructionsSpJoseph jean MD - 03/05/2021 1:35 PM CDT Increase [...] would you like to be contacted at? [phone] How would you like to obtain your [...] and ended up being discharged to a halfway. He is doing better and now back [...] unspecified documented in this encounter Care Teams Tourist Information Assistant Relationship Specialty Start Date End Date Momo Forbes PCP - General Family Practice 01/02/14 [facility] [address] [place] [address] documented as of this encounter
--- OUTSIDE RECORDS SUMMARY | 2022-06-23 11:19 | XMS_ITS | Encounter Summary ---
:1950 Author Organization [place] Address [address] [place] [address] Care Team Providers Name Role Phone Momo Forbes Primary Care Provider Joseph Quintana MD Unavailable Encounter Details Date Type Department Care Team Description 04/30/2021 External Order [facility] Outside, Provide r Results Molecular Diagnostic s [address] [place] [phone] Social History Tobacco Use Types Packs/Day Years [...] Platelets & Differential (04/30/2021 11:20 AM CDT) [facility] gist Method Time Signature WBC Count [...] Laterality Blood 04/30/2021 11:20 AM CDT Narrative BREEZE PFT - 05/03/2021 8:36 AM CDT Verified by Praful Huff on 2020. Patient Reported LAB - BLOOD ORDERABLES Performing Organization Address City/State/ZIP Code Phon e Number BREEZE PFT NON-INTERFACED (ONBASE SCANS) documented in this encounter Visit Diagnoses Not on filedocumented in this encounter Care Teams Seed Buyer Relationship Specialty Start Date End Date Momo Forbes PCP - General Family Practice 01/02/14 [facility] [address] [place] [address] Joseph Quintana, Assigned Nephrology 03/29/21 MD Provider [address] [place] [address] [address] [place] [address] documented as of this encounter
--- OUTSIDE RECORDS SUMMARY | 2022-06-23 11:19 | XMS_ITS | Encounter Summary ---
:1950 Author Organization [place] Address [address] [place] [address] Care Team Providers Name Role Phone Momo Forbes Primary Care Provider Joseph Quintana MD Unavailable Encounter Details Date Type Department Care Team Description 08/08/2020 External Order [facility] Outside, Provider Results Transplant Clinic [address] [place] [address] Social History Tobacco Use Types [...] 08/08/2020 11:43 Results f or this AM LEAD RIDER procedure are i n the results section. TACROLIMUS BY TANDEM Routine 08/08/2020 11:34 Res ults for this MASS SPECTROMETRY AM LEAD RIDER procedure are in the results section. LIPID PROFILE Routine 08/08/2020 11:34 Results fo r this AM LEAD RIDER procedure are i n the results section. ALT Routine 08/08/2020 11:34 Results for this AM LEAD RIDER procedure are i n the results section. BASIC METABOLIC PANEL Routine 08/08/2020 11:34 Re sults for this AM LEAD RIDER procedure are i n the results section. documented in this encounter Results (ABNORMAL) Hemoglobin A1c (08/08/2020 11:43 AM LEAD RIDER) Analysis Performed At [facility] Time Signature Hemoglobin A1C 10.2 (H) <=6.9 % LABDE SCAN (External) Specimen (Source) Anatomical Collection Method Collection Time Re ceived Time Location / / Volume Laterality Blood specimen 08/08/2020 11:43 (specimen) AM LEAD RIDER Narrative BREEZE PFT - 08/11/2020 1:28 PM LEAD RIDER Verified by Praful Huff on 2019. Patient Reported LAB - BLOOD ORDERABLES Performing Organization Address City/State/ZIP Code Phon e Number BREEZE PFT LABDE SCAN Tacrolimus level (08/08/2020 11:34 AM LEAD RIDER) P athologist Signature Tacrolimus(FK-5 11.7 See scan LABDE SCAN 06) (External) ng/mL Specimen (Source) Anatomical Collection Method Collection Time Re ceived Time Location / / Volume Laterality Blood specimen 08/08/2020 11:34 (specimen) AM LEAD RIDER Narrative BREEZE PFT - 08/11/2020 1:28 PM LEAD RIDER Verified by Praful Huff on 2019. Patient Reported LAB - BLOOD ORDERABLES Performing Organization Address City/State/ZIP Code Phon e Number BREEZE PFT LABDE SCAN (ABNORMAL) Lipid Profile (08/08/2020 11:34 AM LEAD RIDER) Patholo gist Method Time Signature Cholesterol 79 (L) 90 - 200 LABDE SCAN (External) MG/DL Triglycerides 86 40 - 197 LABDE SCAN (External) MG/DL LDL-Cholesterol 29 <100 mg/dL LABDE SCAN (External) HDL Cholesterol 33 (L) >=40 mg/dL LABDE SCAN (External) Specimen (Source) Anatomical Collection Method Collection Time Re ceived Time Location / / Volume Laterality Blood specimen 08/08/2020 11:34 (specimen) AM LEAD RIDER Narrative BREEZE PFT - 08/11/2020 1:28 PM LEAD RIDER Verified by Praful Huff on 2019. Patient Reported LAB - BLOOD ORDERABLES Performing Organization Address City/State/ZIP Code Phon e Number BREEZE PFT LABDE SCAN ALT (08/08/2020 11:34 AM LEAD RIDER) P athologist Signature ALT (External) 8 4 - 50 U/L LABDE SCAN Specimen (Source) Anatomical Collection Method Collection Time Re ceived Time Location / / Volume Laterality Blood specimen 08/08/2020 11:34 (specimen) AM LEAD RIDER Narrative BREEZE PFT - 08/11/2020 1:28 PM LEAD RIDER Verified by Praful Huff on 2019. Patient Reported LAB - BLOOD ORDERABLES Performing Organization Address City/State/ZIP Code Phon e Number BREEZE PFT LABDE SCAN (ABNORMAL) Basic metabolic panel (08/08/2020 11:34 AM LEAD RIDER) P athologist Signature Glucose 119 (H) 60 [...] Laterality Blood specimen 08/08/2020 11:34 (specimen) AM LEAD RIDER Narrative BREEZE PFT - 08/11/2020 1:28 PM LEAD RIDER Verified by Praful Huff on 2019. Patient Reported LAB - BLOOD ORDERABLES Performing Organization Address City/State/ZIP Code Phon e Number BREEZE PFT LABDE SCAN documented in this encounter Visit Diagnoses Not on filedocumented in this encounter Care Teams Manager Learning Relationship Specialty Start Date End Date Momo Forbes PCP - General Family Practice 01/02/14 [facility] [address] [place] [address] Joseph Quintana, Assigned Nephrology 03/29/21 MD Provider 7 [facility] 353 [facility] 1932 [place], [place] [address] documented as of this encounter
--- OUTSIDE RECORDS SUMMARY | 2022-06-23 11:19 | XMS_ITS | Encounter Summary ---
:1950 Author Organization [place] Address [address] [place] [address] Care Team Providers Name Role Phone Momo Forbes Primary Care Provider Mariano, Joseph Durham MD Unavailable Reason for Visit Reason Onset Date Comments Transplant 12/02/2021 Encounter Details Date Type Department Care Team Description 12/02/2021 Telephone [facility] Transplant Obdulia Peacock, filling layer up Clinic [address] [place] [phone] Social History Tobacco Use Types Packs/Day [...] to confirm he received message. Gretta Peacock RN Photographer Apprentice Lithographic [phone] ADDENDUM: left message for patient stating he has active orders at preferred lab. Asked to please obtain a full set of transplant labs as soon as possible. Gretta Peacock filling layer upPhotographer Apprentice Lithographic [phone] documented in this encounter Plan of Treatment Not on filedocumented as of this encounter Visit Diagnoses Not on filedocumented in this encounter Care Teams Sand Conditioner Relationship Specialty Start Date End Date Momo Forbes PCP - General Family Practice 01/02/14 [facility] [address] [place] [address] Joseph Quintana, Assigned Nephrology 03/29/[address] [place] [address] [address] [place] [address] documented as of this encounter
--- OUTSIDE RECORDS SUMMARY | 2022-06-23 11:19 | XMS_ITS | Encounter Summary ---
:1950 Author Organization [place] Address [address] [place] [address] Care Team Providers Name Role Phone Momo Forbes Primary Care Provider Mariano, Joseph Durahm MD Unavailable Reason for Visit Reason Onset Date Comments Transplant 11/24/2021 Encounter Details Date Type Department Care Team Description 11/24/2021 Telephone [facility] Transplant Obdulia Peacock, video operator Clinic [address] [place] [address] [phone] Social History Tobacco Use Types Packs/Day [...] had labs drawn ~one week ago at [facility], however results have not beenfaxed to [facility]. PLAN: call lab to have results faxed OUTCOME: New labs orders sent. Most recent bmp and cbc requested from october 2021. Tac and UPC due. Left detailed message with instructions to obtain tacrolimus trough level and UPC at earliest convenience. Asked for CB to confirm understanding. Gretta Peacock video operatorManager Trade Marketing [phone] Telephone Encounter - Azael Rodriguez - 11/24/2021 3:32 PM CDT Patient called to touch base with the RNCC regarding some questions. documented in this encounter Plan of Treatment Not on filedocumented as of this encounter Visit Diagnoses Not on filedocumented in this encounter Care Teams Faculty Criminal Justice Relationship Specialty Start Date End Date Momo Forbes PCP - General Family Practice 01/02/14 [facility] [address] [place] [address] Joseph Quintana, Assigned Nephrology 03/29/21 MD Provider [address] [place] [address] [address] [place] [address] documented as of this encounter
--- OUTSIDE RECORDS SUMMARY | 2022-06-23 11:19 | XMS_ITS | Encounter Summary ---
:1950 Author Organization [place] Address [address] [place] [address] Care Team Providers Name Role Phone Momo Forbes Primary Care Provider Joseph Quintana MD Unavailable Encounter Details Date Type Department Care Team Description 12/09/2021 External Order [facility] Outside, Provide r Results Molecular Diagnostic s [address] [place] [phone] Social History Tobacco Use Types Packs/Day Years [...] (12/09/2021 11:50 AM CDT) Analysis Performed At [facility] logist Time Signature WBC Count 7.68 5.00 [...] PM CDT Verified by Ruperto Pepper on 12/16/19 22. Provider Outside LAB - BLOOD ORDERABLES Performing [...] on filedocumented in this encounter Care Teams Right Of Way Clearer Relationship Specialty Start Date End Date Momo Forbes PCP - General Family Practice 01/02/14 [facility] [address] [place] [address] Joseph Quintana, Assigned Nephrology 03/29/21 MD Provider [address] [place] [address] [address] [place], [place] [address] documented as of this encounter
--- OUTSIDE RECORDS SUMMARY | 2022-06-23 11:19 | XMS_ITS | Encounter Summary ---
:1950 Author Organization [place] Address [facility] [place] [address] Care Team Providers Name Role Phone Momo Forbes Primary Care Provider Encounter Details Date Type Department Care Team Description 10/23/2020 [facility] BOGDAN Nam [address] [place], [place] [phone] Social History Tobacco Use [...] Barbie Ugalde RN - 10/23/2020 4:27 PM PICKER MACHINE OPERATOR Returned call and left second voicemail message. Patient mentioned in previous phone call he was interested in donating his body upon passing to [facility] for science. Please sent to following website for more information: [email or web address] ER MACHINE OPERATOR Telephone Encounter - Gladis Sosa RN - 10/23/2020 3:21 PM CST Patient Call: Voicemail Date/Time: 10/23/20 139pm Reason for call: Patient left a message requesting a call back ER MACHINE OPERATOR documented in this encounter Plan of Treatment Not on filedocumented as of this encounter Visit Diagnoses Not on filedocumented in this encounter Care Teams Gas Booster Engineer Relationship Specialty Start Date End Date Momo Forbes PCP - General Family Practice 01/02/14 [facility] [address] [place] [address] documented as of this encounter
--- OUTSIDE RECORDS SUMMARY | 2022-06-23 11:19 | XMS_ITS | Encounter Summary ---
:1950 Author Organization [place] Address [address] [place] [address] Care Team Providers Name Role Phone Momo Forbes Primary Care Provider Joseph Quintana MD Unavailable Reason for Visit Reason Onset Date Comments Transplant Lab 05/04/2021 Encounter Details Date Type Department Care Team Description 05/04/2021 Telephone [facility] Transplant Krys Garcia, Transplant Lab Clinic RN [address] [place] [address] [phone] Social History Tobacco Use Types Packs/Day Years Used Date Smoking Tobacco: Former Cigars Quit : 08/22/2006 Smokeless Tobacco: Never Alcohol Use Standard Drinks/Week Comments Yes 0 (1 standard drink = 0.6 oz pure alcoho l) occasional drink. Sex Assigned at Date Recorded Not on file documented as of this encounter Miscellaneous Notes Telephone Encounter - Barbie Ugalde RN - 05/05/2021 11:54 AM CDT Images from [...] nor black tarry or maroon colored stools. Stateshe had colonoscopy with [place] about a year ago. Appears in CareEverywhere colonoscopy was 03/20/2015. Latrell denies infectious symptoms currently but reports he had R foot surgery at [place] this last winter for diabetic foot ulcer. Infection in bottom of foot; laid up since Sep. Pretty well healed except a little speck. Follows up with Dr. Chatterjee. Will check iron panel on next labs. Orders sent. Barbie Ugalde, RN, BSN Solid Organ Transplant, Post Kidney and Pancreas Transplant Branch Operations Coordinator [phone] Telephone Encounter - Krys Garcia RN - 05/04/2021 8:09 AM CDT ISSUE: Falling hemoglobin. documented in this encounter Plan of Treatment Not on filedocumented as of this encounter Visit Diagnoses Not on filedocumented in this encounter Care Teams Medical Insurance Biller Relationship Specialty Start Date End Date Momo Forbes PCP - General Family Practice 01/02/14 [facility] [address] [place] [address] Joseph Quintana, Assigned Nephrology 03/29/[address] [place] [address] [address] [place], [place] [address] documented as of this encounter
--- OUTSIDE RECORDS SUMMARY | 2022-06-23 11:19 | XMS_ITS | Encounter Summary ---
:1950 Author Organization [place] Address [facility] [place] [address] Care Team Providers Name Role Phone Momo Forbes Primary Care Provider Joseph Quintana MD Unavailable Reason for Visit Reason Onset Date Comments Refill Request 08/25/2021 Prograf 0.5mg Encounter Details Date Type Department Care Team Description 08/25/2021 Telephone [facility] Orlando Richey, Refil l Request (Prograf Transplant Clinic 0.5mg) [address] [place] [phone] Social History Tobacco Use Types Packs/Day Years Used Date Smoking Tobacco: Former Cigars Quit : 08/22/2006 Smokeless Tobacco: Never Alcohol Use Standard Drinks/Week Comments Yes 0 (1 standard drink = 0.6 oz pure alcoho l) occasional drink. Sex Assigned at Date Recorded Not on file documented as of this encounter Miscellaneous Notes Telephone Encounter - Meghan Mccormack RPH - 08/25/2021 2:15 PM CST Medication/Refill approved per CPA: [facility] COLLABORATIVE AGREEMENT FOR IMMUNOSUPPRESSENT PRESCRIPTION MODIFICATION. Routing encounter to Transplant as an FYI. 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
--- OUTSIDE RECORDS SUMMARY | 2022-06-23 11:19 | XMS_ITS | Encounter Summary ---
:1950 Author Organization [place] Address [facility] [place] [address] Care Team Providers Name Role Phone Momo [...] Family Practice 01/02/14 [facility] [address] [place] [address] documented as of this encounter
--- OUTSIDE RECORDS SUMMARY | 2022-06-23 11:19 | XMS_ITS | Encounter Summary ---
:1950 Author Organization [place] Address [address] [place] [address] Care Team Providers Name Role Phone Momo Forbes Primary Care Provider Encounter Details Date Type Department Care Team Description 01/30/2021 Telephone [facility] Transplant Viv Torres RN [place] [phone] Social History Tobacco Use Types Packs/Day Years Used Date Smoking Tobacco: Former Cigars Quit : 08/22/2006 Smokeless Tobacco: Never Alcohol Use Standard Drinks/Week Comments Yes 0 (1 standard drink = 0.6 oz pure alcoho l) occasional drink. Sex Assigned at Date Recorded Not on file documented as of this encounter Miscellaneous Notes Telephone Encounter - Barbie Ugalde RN - 03/03/2021 4:11 PM CDT Images from the original note were not included. Message Received: Today Beny Staton, [facility] Barbie Ugalde, BOGDAN Diego has not ordered tacro 0.5mg in over a year. ??He just ordered 1mg today but not the 0.5mg. Beny Staton [facility] Specialty Pharmacist [phone] COMMUNITY HEALTH WORKER task: Can you please call Diego to find out what dose of tacrolimus he is taking and notify coordinator if different than what is prescribed. Recommend repeat tacrolimus level for previously elevated level 7.3, goal 4-6. Thank you, Barbie Ugalde RN, BSN Solid Organ Transplant, Post Kidney and Pancreas Transplant Rand Tacker [phone] Telephone Encounter - Viv Torres RN - [...] transplant documented in this encounter Care Teams Information Security Director Relationship Specialty Start Date End Date Momo Forbes PCP - General Family Practice 01/02/14 [place] [address] documented as of this encounter
--- OUTSIDE RECORDS SUMMARY | 2022-06-23 11:19 | XMS_ITS | Encounter Summary ---
:1950 Author Organization [place] Address [facility] [place] [address] Care Team Providers Name Role Phone Momo Forbes Primary Care Provider Mariano, Joseph Durham MD Unavailable Reason for Visit Reason Onset Date Comments Voicemail 04/13/2022 Encounter Details Date Type Department Care Team Description 04/13/2022 Telephone [facility] Transplant Obdulia Peacock, RN Voicemail Clinic [address] [place] [address] [phone] Social History Tobacco Use Types Packs/Day [...] to patient via mail Gretta Peacock RN Packaging Machine Supplies Distributor [phone] Telephone Encounter - Adriana Raza - 04/13/2022 2:31 PM CDT Voicemail Date/Time: 04/13/22 2:27 pm Reason for call: Diego received a letter stating we have been trying ot reach him so he was responding documented in this encounter Plan of Treatment Not on filedocumented as of this encounter Visit Diagnoses Not on filedocumented in this encounter Care Teams Manufactured Buildings Supervisor Relationship Specialty Start Date End Date Momo Forbes PCP - General Family Practice 01/02/14 [facility] [address] [place] [address] Joseph Quintana, Assigned Nephrology 03/29/21 MD Provider 7 [facility] 353 [facility] [address] [place] [address] documented as of this encounter
--- OUTSIDE RECORDS SUMMARY | 2022-06-23 11:19 | XMS_ITS | Encounter Summary ---
:1950 Author Organization [place] Address On license of [facility]0 [facility] [place] [address] Care Team Providers Name Role Phone Momo Forbes Primary Care Provider Joseph Quintana MD Unavailable Reason for Visit Reason Onset Date Comments Erroneous encounter-disregard 05/02/2022 Encounter Details Date Type Department Care Team Description 05/02/2022 [facility] Gretta Peacock, BOGDAN [facility] encounter-disregard [address] [place] [phone] Social History Tobacco Use Types [...] on filedocumented in this encounter Care Teams Workflow Developer Relationship Specialty Start Date End Date Momo Forbes PCP - General Family Practice 01/02/14 [facility] [address] [place] [address] Joseph Quintana, Assigned Nephrology 03/29/21 Provider 717 [facility] [place] [facility] 353 [facility] [address] [place] [address] documented as of this encounter
--- OUTSIDE RECORDS SUMMARY | 2022-06-23 11:19 | XMS_ITS | Encounter Summary ---
:1950 Author Organization [place] Address [facility] [place] [address] Care Team Providers Name Role Phone Momo Forbes Primary Care Provider Joseph Quintana MD Unavailable Encounter Details Date Type Department Care Team Description 02/02/2021 External Order [facility] Outside, Provider Results Transplant Clinic [address] [place] [phone] Social History Tobacco Use Types Packs/Day [...] by Cassie Florian on 02/04/2021. Performed by: [facility] [address] [place], [place] ??[address] Patient Reported LABORATORY Performing Organization Address City/State/ZIP Code Phon e Number JESSICA PFT COVID-19 EXTERNAL COVID-19 [place] [address], [facility] RESULTS Result Scanned into Patient Record by [employer] Refer to Result Comment/Narrative for exact performing laboratory documented in this encounter Visit Diagnoses Not on filedocumented in this encounter Care Teams Government Contracts Manager Relationship Specialty Start Date End Date Momo Forbes PCP - General Family Practice 01/02/14 [facility] [address] [place] [address] Joseph Quintana, Assigned Nephrology 03/29/21 MD Provider 717 [facility] 353 [facility] [address] [place] [address] documented as of this encounter
--- OUTSIDE RECORDS SUMMARY | 2022-06-23 11:19 | XMS_ITS | Encounter Summary ---
:1950 Author Organization [place] Address [address] [place] [address] Care Team Providers Name Role Phone Forbes, Momo He Primary Care Provider Reason for Visit Reason Onset Date Comments Transplant Immunosuppression Management 09/08/2020 Encounter Details Date Type Department Care Team Description 09/08/2020 Telephone [facility] Tram, Transplant Transplant Clinic Barbie Nam, Rc [address] [place] [address] [place] [address] Social History Tobacco Use Types [...] Barbie Ugalde RN - 09/09/2020 3:06 PM CERTIFIED ENERGY MANAGER Second call placed to patient and voicemail message left. IFIED ENERGY MANAGER Telephone Encounter - Barbie Ugalde RN - 09/08/2020 10:31 AM CERTIFIED ENERGY MANAGER Images from the original note were not included. Message Received: 3 days ago Message Contents Beny Staton, [facility] Barbie Ugalde, BOGDAN ?? Latrell has not filled immunos since 07/21. ??His tacro dose changed and he has not filled the 0.5mg in over a year. ??He has not returned our calls. ?? Beny Staton [facility] Specialty Pharmacist [phone] OUTCOME: Tacrolimus dose was decreased from 2mg [...] he is currently taking and need labs. IFIED ENERGY MANAGER documented in this encounter Plan of Treatment Not on filedocumented as of this encounter Visit Diagnoses Not on filedocumented in this encounter Care Teams Pharmaceutical Physician Relationship Specialty Start Date End Date Momo Forbes PCP - General Family Practice 01/02/[address] [address] documented as of this encounter
--- OUTSIDE RECORDS SUMMARY | 2022-06-23 11:19 | XMS_ITS | Encounter Summary ---
:1950 Author Organization [place] Address [address] [place] [address] Care Team Providers Name Role Phone Momo Forbes Primary Care Provider Reason for Visit Reason Onset Date Comments Transplant 10/23/2020 Encounter Details Date Type Department Care Team Description 10/23/2020 Telephone [facility] Barbie Ugalde nsplant Transplant Clinic BOGDAN Nam [address] [place] [phone] Social History Tobacco Use Types [...] Ugalde RN - 10/23/2020 1:10 PM CAR CONDITIONER Latrell reports his labs were done yesterday morning at [facility]. Last night ended upat ER at [facility]. Hospital printed out copy of labs and he is worried about creatinine. Latrell states he had R foot infection that needed to be cleaned out; Had surgery last day of August onfoot at [facility]. Was hospitalized 10 days before going to [facility] for recovery. Last night his blood sugar was dropping low into 70s and [facility] staff thought his BP was jumping around [...] department to release records or go thru [facility] to have orders faxed. Call then [...] and repeating post-transplant labs in 1-2 weeks. CONDITIONER Telephone Encounter - Tasia Mack - 10/23/2020 10:03 AM CST Patient Call: Transplant Lab/Orders Route to PLASTIC SURGERY ASSISTANT Post Transplant Days: 2455 When patient is less than 60 days post-transplant, route high priority Reason for Call: Discuss lab results; which results? creatine level Callback needed? Yes Return Call Needed Same as documented in contacts section When to return call?: Greater than one day: Route standard priority CONDITIONER documented in this encounter Plan of Treatment Not on filedocumented as of this encounter Visit Diagnoses Not on filedocumented in this encounter Care Teams Sou[address] Vendor Relationship Specialty Start Date End Date Momo Forbes PCP - General Family Practice 01/02/14 [facility] [address] [place] [address] documented as of this encounter
--- OUTSIDE RECORDS SUMMARY | 2022-06-23 11:19 | XMS_ITS | Encounter Summary ---
:1950 Author Organization [place] Address [address] [place] [address] Care Team Providers Name Role Phone Momo Forbes Primary Care Provider Joseph Quintana MD Unavailable Encounter Details Date Type Department Care Team Description 01/07/2021 External Order [facility] Outside, Provider Results Transplant Clinic [address] [place] [phone] Social History Tobacco Use Types Packs/Day [...] Laterality Blood 01/07/2021 9:30 AM CDT Narrative JESSICA PFT - 01/12/2021 10:34 AM CDT Verified [...] on filedocumented in this encounter Care Teams Rod Piler Relationship Specialty Start Date End Date Momo Forbes PCP - General Family Practice 01/02/14 [facility] [address] [place] [address] Joseph Quintana, Assigned Nephrology 03/29/21 MD Provider 717 [facility] 353 [facility] [address] [place] [address] documented as of this encounter
--- OUTSIDE RECORDS SUMMARY | 2022-06-23 11:19 | XMS_ITS | Encounter Summary ---
:1950 Author Organization [place] Address [facility] [place] [address] Care Team Providers Name Role Phone Momo Forbes Primary Care Provider Joseph Quintana MD Unavailable Reason for Visit Reason Onset Date Comments Transplant 09/22/2021 Encounter Details Date Type Department Care Team Description 09/22[facility]20[facility] BOGDAN Nam [address] [place] [phone] Social History Tobacco Use Types Packs/Day Years Used Date Smoking Tobacco: Former Cigars Quit : 08/22/2006 Smokeless Tobacco: Never Alcohol Use Standard Drinks/Week Comments Yes 0 (1 standard drink = 0.6 oz pure alcoho l) occasional drink. Sex Assigned at Date Recorded Not on file documented as of this encounter Miscellaneous Notes Telephone Encounter - Barbie Ugalde RN - 09/22/2021 2:16 PM YEAST TENDER Post discharge from [facility] 09/20/21; to rehab/TCU due to wound on stump; can't wear prosthetic until healed. UTI on Cephelaxin 500 mg TID. Katharine TCU Unit Phone [facility] station [phone] Phone BOGDAN Baker [phone] Discussed Prograf dose was 1.5 mg at hospital. Should be 1 mg AM/0.5 mg PM. Repeat level with [facility] 09/24/21. Verbal orders taken by admissions. Barbie Crisostomo, RN, BSN Solid Organ Transplant, Post Kidney and Pancreas Transplant Stock Handler [phone] T TENDER Telephone Encounter - MichaelAzael Deann - 09/22/2021 12:09 PM CST Katharine under the new name [facility] TCU has questions regarding medicationsand lab. T TENDER documented in this encounter Plan of Treatment Not on filedocumented as of this encounter Visit Diagnoses Not on filedocumented in this encounter Care Teams Assisted Living Director Relationship Specialty Start Date End Date Momo Forbes PCP - General Family Practice 01/02/14 [facility] [address] [place] [address] Joseph Quintana, Assigned Nephrology 03/29/21 MD Provider [address] [place] [address] [address] [place] [address] documented as of this encounter
--- OUTSIDE RECORDS SUMMARY | 2022-06-23 11:19 | XMS_ITS | Encounter Summary ---
:1950 Author Organization [place] Address [facility] [place] [address] Care Team Providers Name Role Phone Momo Forbes Primary Care Provider Reason for Visit Reason Onset Date Comments Transplant 02/03/2021 spoke w pt and donna rmed annual neph appt on 03/05/21 Encounter Details Date Type Department Care Team Description 02/03/2021 Telephone [facility] Barbie Ugalde (spoke w pt Transplant Clinic BOGDAN Nam and confirmed annual [address] [facility] neph appt on 03/05/21) [place] [address] Social History Tobacco Use Types [...] filedocumented in this encounter Care Teams Senior Games Technician Relationship Specialty Start Date End Date Momo Forbes PCP - General Family Practice 01/02/14 [facility] [address] [place], [place] [address] documented as of this encounter
--- OUTSIDE RECORDS SUMMARY | 2022-06-23 11:19 | XMS_ITS | Encounter Summary ---
:1950 Author Organization [place] Address [facility] [place] [address] Care Team Providers Name Role Phone Momo Forbes Primary Care Provider Joseph Quintana MD Unavailable Encounter Details Date Type Department Care Team Description 08/25/[address] [facility] Jose, Kidney tr ansplanted; Transplant Clinic BOGDAN Marcano -donor kidney transp lant recipient [address] [place] [address] Social History Tobacco Use Types [...] transplant documented in this encounter Care Teams Ice Cream Chef Relationship Specialty Start Date End Date Momo Forbes PCP - General Family Practice 01/02/14 [facility] [address] [place] [address] Joseph Quintana, Assigned Nephrology 03/29/21 Provider 717 [facility] 353 [facility] [address] [place], [place] [address] documented as of this encounter
--- OUTSIDE RECORDS SUMMARY | 2022-06-23 11:19 | XMS_ITS | Encounter Summary ---
:1950 Author Organization [place] Address [address] [place] [address] Care Team Providers Name Role Phone Momo Forbes Primary Care Provider Joseph Quintana MD Unavailable Encounter Details Date Type Department Care Team Description 04/29/2022 External Order [facility] Outside, Provide r Results Molecular Diagnostic s [address] [place] [phone] Social History Tobacco Use Types Packs/Day Years [...] Tandem Mass Spectrometry (04/29/2022 11:40 AM CDT) athologist Signature Tacrolimus(FK-5 5.5 5.0 - 15.0 [...] LAB - URINE ORDERABLES Performing Organization Address City/[facility] Code Phon e Number [place] PFT [...] Laterality Blood 04/29/2022 11:40 AM CDT Narrative [facility]ACHERY[place] PFT - 04/30/2022 12:29 PM CDT Verified [...] on filedocumented in this encounter Care Teams Sports Administrator Relationship Specialty Start Date End Date Momo Forbes PCP - General Family Practice 01/02/14 [facility] [address] [place] [address] Joseph Quintana, Assigned Nephrology 03/29/21 Provider 717 [facility] 353 [facility] [address] [place] [address] documented as of this encounter
--- OUTSIDE RECORDS SUMMARY | 2022-06-23 11:19 | XMS_ITS | Encounter Summary ---
:1950 Author Organization [place] Address [address] [place] [address] Care Team Providers Name Role Phone Momo Forbes Primary Care Provider Joseph Quintana MD Unavailable Encounter Details Date Type Department Care Team Description 01/19/2022 External Order [facility] Outside, Provide r Results Molecular Diagnostic s [address] [place] [address] Social History Tobacco Use Types Packs/Day Years [...] External Culture Results (01/19/2022 12:11 PM CDT) [facility] Method Time Signature Scan Culture See Scanned NON-INTERFACE Results Report D (ONBASE (External) SCANS) Specimen (Source) Anatomical Collection Method Collection Time Re ceived Time Location / / Volume Laterality 01/19/2022 12:11 PM CDT Narrative [place] PFT - 01/25/2022 2:48 PM CDT Verified by Priscilla Mcdaniel on 01/25/2022. Provider Outside LABORATORY Performing Organization Address City/[facility]/ZIP Code Phon e Number [place] PFT NON-INTERFACED [...] LAB - URINE ORDERABLES Performing Organization Address City/[facility] Phon e Number [place] PFT NON-INTERFACED [...] Laterality Blood 01/19/2022 11:55 AM CDT Narrative JESSICA PFT - 01/21/2022 8:19 AM CDT Verified by Yudi Ruano on . Provider Outside LAB - BLOOD ORDERABLES Performing Organization Address City/State/ZIP Code Phon e Number JESSICA PFT NON-INTERFACED (ONBASE SCANS) (ABNORMAL) UA with Microscopic (01/19/2022 11:16 AM CDT) [facility] gist Method Time Signature Color Urine YEL YELLOW NON-INTERFAC (External) ED (ONBASE SCANS) Appearance Urine CLEAR CLEAR NON-INTERFAC (External) ED (ONBASE SCANS) Glucose Urine 2+ NEGATIVE NON-INTERFAC (External) ED (ONBASE SCANS) Bilirubin Urine NEG NEGATIVE NON-INTERFAC (External) ED (ONBASE SCANS) Ketones Urine NEG NEGATIVE NON-INTERFAC (External) ED (ONBASE SCANS) Specific [place] 1.010 1.005 - NON-INTERFAC Urine (External) 1.030 [...] filedocumented in this encounter Care Teams Director Software Development Relationship Specialty Start Date End Date Momo Forbes PCP - General Family Practice 01/02/14 [facility] [address] [place] [address] Joseph Quintana, Assigned Nephrology 03/29/[address] [place] [address] [address] [place], [place] [id number] documented as of this encounter
--- OUTSIDE RECORDS SUMMARY | 2022-06-23 11:19 | XMS_ITS | Encounter Summary ---
:1950 Author Organization [place] Address [address] [place] [address] Care Team Providers Name Role Phone Momo Forbes Primary Care Provider Reason for Visit Reason Onset Date Comments Transplant 01/07/2021 Encounter Details Date Type Department Care Team Description 01/07/2021 Telephone [facility] Barbie Ugalde nsplanlynda Transplant Clinic BOGDAN Nam [address] [place] [address] [phone] Social History Tobacco Use Types Packs/Day [...] CDT Patient Call: Transplant Lab/Orders Route to ELECTRICAL PRODUCTS ENGINEER Post Transplant Days: 2530 When patient is less than 60 days post-transplant, route high priority Reason for Call: Annual lab reorder [facility] at [phone] Labs drawn Waiting fororders Callback needed? No documented in this encounter Plan of Treatment Not on filedocumented as of this encounter Visit Diagnoses Not on filedocumented in this encounter Care Teams Mold Filler Plastic Dolls Relationship Specialty Start Date End Date Momo Forbes PCP - General Family Practice 01/02/14 [facility] [address] [place] [address] documented as of this encounter
--- OUTSIDE RECORDS SUMMARY | 2022-06-23 11:19 | XMS_ITS | Encounter Summary ---
:1950 Author Organization [place] Address Formerly [facility], [facility] [place] [address] Care Team Providers Name Role Phone Momo Forbes Primary Care Provider Joseph Quintana MD Unavailable Encounter Details Date Type Department Care Team Description 07/08/2020 External Order [facility] Outside, Provider Results Transplant Clinic [address] [place] [phone] Social History Tobacco Use Types Packs/Day [...] EXTERNAL LAB Routine 07/08/2020 9:23 AM Results for this RESULTS AMERICAN INDIAN STUDIES PROFESSOR procedure are i n the results section. documented in this encounter Results External Lab Results (07/08/2020 9:23 AM AMERICAN INDIAN STUDIES PROFESSOR) Analysis Performed At Patho logist Time Signature Scan Lab View Image LABDE SCAN Results (External) Comment: HLA Antibody Screen, Class I an d Class II Specimen (Source) Anatomical Collection Method Collection Time Re ceived Time Location / / Volume Laterality 07/08/2020 9:23 AM AMERICAN INDIAN STUDIES PROFESSOR Narrative JESSICA PFT - 07/16/2020 2:42 PM AMERICAN INDIAN STUDIES PROFESSOR Verified by Ruperto Pepper on 07/15/20 20. Patient Reported LABORATORY Performing Organization Address City/State/ZIP Code Phon e Number [facility] LABDE SCAN documented in this encounter Visit Diagnoses Not on filedocumented in this encounter Care Teams Hot Plate Press Operator Relationship Specialty Start Date End Date Momo Forbes PCP - General Family Practice 01/02/14 [facility] [address] [place] [address] Joseph Quintana, Assigned Nephrology 03/29/21 MD Provider [address] [place] [address] [address] [place], [place] [address] documented as of this encounter
--- OUTSIDE RECORDS SUMMARY | 2022-06-23 11:20 | XMS_ITS | Encounter Summary ---
:1950 Author Organization [place] Address [facility] [place] [address] Care Team Providers Name Role Phone Momo [...] on filedocumented in this encounter Care Teams Stator Connector Relationship Specialty Start Date End Date Momo Forbes PCP - General Family Practice 01/02/14 [facility] [address] [place] [address] documented as of this encounter
--- OUTSIDE RECORDS SUMMARY | 2022-06-23 11:20 | XMS_ITS | Encounter Summary ---
:1950 Author Organization [place] Address [address] [place] [address] Care Team Providers Name Role Phone Momo Forbes Primary Care Provider Encounter Details Date Type Department Care Team Description 05/16/2019 Orders Only [facility] Loy Morales, Aft ercare following organ transplant; [facility] Kidney replaced by transplant; Laboratory [address] [facility] Encounter for long-term curr ent use of medication [address] [place] [address] [phone] (Wo rk) Social History Tobacco Use Types [...] (ABNORMAL) Tacrolimus level (05/16/2019 3:43 PM CDT) [facility] Method Time Signature Tacrolimus Last 05/1605/18/2019 [facility] 1230AM 11:28 AM CDT [facility] Tacrolimus 4.6 (L) 5.0 - 05/18/2019 [facility] 15.0 ug/L 4:11 PM CDT [facility] Comment: Tacrolimus Reference [...] e Number [facility] [address] [place], [place] [id number] [place] [address] documented in this encounter Visit Diagnoses Diagnosis Aftercare following organ transplant Kidney replaced by transplant Encounter for long-term current use of m edication documented in this encounter Care Teams Aerospace Engineer Officer Armament Relationship Specialty Start Date End Date Momo Forbes PCP - General Family Practice 01/02/14 [facility] [address] [place] [address] documented as of this encounter
--- OUTSIDE RECORDS SUMMARY | 2022-06-23 11:20 | XMS_ITS | Encounter Summary ---
:1950 Author Organization [place] Address [facility] [place] [address] Care Team Providers Name Role Phone Momo Forbes Primary Care Provider Reason for Visit Reason Onset Date Comments Critical Values 07/08/2020 Encounter Details Date Type Department Care Team Description 07/08/2020 Telephone [facility] Cristy Chen LPN C ritical Values Transplant Clinic [address] [place] [address] [phone] Social History Tobacco Use Types Packs/Day Years Used Date Smoking Tobacco: Former Cigars Quit : 08/22/2006 Smokeless Tobacco: Never Alcohol Use Standard Drinks/Week Comments Yes 0 (1 standard drink = 0.6 oz pure alcoho l) occasional drink. 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 Per Dr. Huerta from visit in 10/09/19: # Diabetes: Poorly controlled (HbA1c >9%) Last HbA1c: 13.7%. - Management as per primary care. - Recommended all blood sugars stay below 200, with fasting between 90 and 130. ?? Latrell states that he lost his blood sugar meter but he can pick one up at [facility]. He asked how often he should [...] level. Latrell states he returns to 08/08. L BASTER Telephone Encounter - Cristy Chen LPN - 07/08/2020 3:39 PM CST DATE: 07/08/2020 TIME OF RECEIPT FROM LAB: 3:30 PM LAB TEST: Glucose LAB VALUE: 407 RESULTS GIVEN WITH READ-BACK TO (PROVIDER): Barbie Ugalde RN TIME LAB VALUE REPORTED TO PROVIDER: 3:39 PM L BASTER documented in this encounter Plan of Treatment Not on filedocumented as of this encounter Visit Diagnoses Not on filedocumented in this encounter Care Teams Press Box Custodian Relationship Specialty Start Date End Date Momo Forbes PCP - General Family Practice 01/02/14 [facility] [address] [place] [address] documented as of this encounter
--- OUTSIDE RECORDS SUMMARY | 2022-06-23 11:20 | XMS_ITS | Encounter Summary ---
:1950 Author Organization [place] Address [address] [place] [address] Care Team Providers Name Role Phone Momo Forbes Primary Care Provider Reason for Visit Reason Onset Date Comments Transplant Immunosuppression Management 07/03/2020 Late to refill Encounter Details Date Type Department Care Team Description 07/03/2020 Telephone [facility] Tram, Transplant Transplant Clinic Barbie Nam, Immunosuppression [address] [place] [address] RN Management (Late to [place], [place] refill) [phone] Social History Tobacco Use Types Packs/Day Years Used Date Smoking Tobacco: Former Cigars Quit : 08/22/2006 Smokeless Tobacco: Never Alcohol Use Standard Drinks/Week Comments Yes 0 (1 standard drink = 0.6 oz pure alcoho l) occasional drink. Sex Assigned at Date Recorded Not on file documented as of this encounter Miscellaneous Notes Telephone Encounter - Barbie Ugalde RN - 07/03/2020 10:20 AM PUPPET DEVELOPER Images from the original note were not included. Late to fill IS meds Received: Yesterday Message Contents Meghan Mccormack, [facility] Barbie Ugalde RN ?? Hi Diego Valentin is 26 days [...] copy to patient so he is aware. 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
--- OUTSIDE RECORDS SUMMARY | 2022-06-23 11:20 | XMS_ITS | Encounter Summary ---
:1950 Author Organization [place] Address [address] [facility] [address] Care Team Providers Name Role Phone Momo Forbes Primary Care Provider Joseph Quintana MD Unavailable Encounter Details Date Type Department Care Team Description 05/26/2020 External Order [facility] Outside, Provider Results Transplant Clinic [address] [place] [address] Social History Tobacco Use Types [...] on filedocumented in this encounter Care Teams Calendar Control Clerk Blood Bank Relationship Specialty Start Date End Date Momo Forbes PCP - General Family Practice 01/02/14 [facility] [address] [place] [address] Joseph Quintana, Assigned Nephrology 03/29/21 MD Provider 7 [facility] [address] [facility] [address] [place], [place] [address] documented as of this encounter
--- OUTSIDE RECORDS SUMMARY | 2022-06-23 11:20 | XMS_ITS | Encounter Summary ---
:1950 Author Organization [place] Address [address] [facility] [place] [address] Care Team Providers Name Role Phone Momo Forbes Primary Care Provider Reason for Visit Reason Onset Date Comments Refill Request 03/18/2020 Mycophenolate and Pr ograf 1mg Encounter Details Date Type Department Care Team Description 03/18/2020 Refill [facility] Mariano, Joseph Refill R equest Nephrology Clinic MD Herminio (Mycophenolate and [place] [address] [place] [address] SE Prograf 1mg) 909 [facility] RANJAN 353 [facility] [address] [place], [place] [address] [phone] Social History Tobacco Use Types Packs/Day Years [...] transplant documented in this encounter Care Teams Skilled Nursing Facilities Professional Relationship Specialty Start Date End Date Momo Forbes PCP - General Family Practice 01/02/14 [facility] [address] [place] [address] documented as of this encounter
--- OUTSIDE RECORDS SUMMARY | 2022-06-23 11:20 | XMS_ITS | Encounter Summary ---
:1950 Author Organization [place] Address [address] [facility] [place] [address] Care Team Providers Name Role Phone Momo Forbes Primary Care Provider Reason for Visit Reason Onset Date Comments Transplant Lab 01/29/2020 overdue labs Encounter Details Date Type Department Care Team Description 01/29/2020 Telephone [facility] Barbie Ugalde Tra nsplant Lab Transplant Clinic BOGDAN Nam (overdue labs) [address] [place] [phone] Social History Tobacco Use Types Packs/Day [...] a kit for blood work sent to [facility] as requested. Explained kits are no longer being used for drug levels but new orders could be sent to lab if needed. [facility] [phone] (Phone) [facility] has annual order on file sent September 2019 and can fax to their new [facility] location that opened 2 weeks ago. Patient seen provider in [facility] who meryl Hemoglobin A1C and [...] on filedocumented in this encounter Care Teams Plush Brusher Relationship Specialty Start Date End Date Momo Forbes PCP - General Family Practice 01/02/14 [facility] [address] [place] [address] documented as of this encounter
--- OUTSIDE RECORDS SUMMARY | 2022-06-23 11:20 | XMS_ITS | Encounter Summary ---
:1950 Author Organization [place] Address [address] [facility] [place] [address] Care Team Providers Name Role Phone ForbesMomo santiago A Primary Care Provider Reason for Visit Reason Onset Date Comments Kidney Transplant 07/12/2019 Encounter Details Date Type Department Care Team Description 07/12/2019 Telephone [facility] Estefania Nguyen Transplant Transplant Clinic Amanda Fletcher RN [address] [place] [phone] Social History Tobacco Use Types Packs/Day [...] left with instruction listed below. Order placed E HOLDER Telephone Encounter - Amanda Nguyen RN - 07/12/2019 12:23 PM SHARE HOLDER Clinic appt 07/17 at 4:45 Plan: Called patient to remind him of appt date/time. Asked that he complete labs prior to appt. SREEKANTH task: Please send one time lab order to complete all tx labs within the next week. E HOLDER documented in this encounter Plan of Treatment Not on filedocumented as of this encounter Visit Diagnoses Not on filedocumented in this encounter Care Teams Slp Relationship Specialty Start Date End Date Momo Forbes PCP - General Family Practice 01/02/14 [facility] [address] [place] [address] documented as of this encounter
--- OUTSIDE RECORDS SUMMARY | 2022-06-23 11:20 | XMS_ITS | Encounter Summary ---
:1950 Author Organization [place] Address [facility] [place] [address] Care Team Providers Name Role Phone Momo [...] on filedocumented in this encounter Care Teams Administrative Specialist Relationship Specialty Start Date End Date Momo Forbes PCP - General Family Practice 01/02/14 [facility] [address] [place] [address] documented as of this encounter
--- OUTSIDE RECORDS SUMMARY | 2022-06-23 11:20 | XMS_ITS | Encounter Summary ---
:1950 Author Organization [place] Address [address] [place] [address] Care Team Providers Name Role Phone Forbes, Momo He Primary Care Provider Reason for Visit Reason Onset Date Comments Transplant Lab 05/28/2020 Encounter Details Date Type Department Care Team Description 05/28/2020 Telephone [facility] Barbie Ugalde nsplant Lab Transplant Clinic BOGDAN Nam [address] [place] [phone] Social History Tobacco Use Types [...] Contents Satish Gómez MD Blaisdell, Christin Rebecca, RN ?? Yes and obtain DSA as well [...] mg/dL on 05/26/20 at [address] [facility] [phone] (Phone) CBC appears as expected Missing BMP and Tacrolimus levels PLAN: Call to obtain missing results if available. Assess causes of proteinuria. Result routed to Dr. Gómez for comment: Message Received: Today Message Contents Satish Gómez MD Blaisdell, Christin Rebecca BOGDAN ?? Yes and obtain DSA as [...] on filedocumented in this encounter Care Teams Transfer Pumper Relationship Specialty Start Date End Date Momo Forbes PCP - General Family Practice 01/02/14 [facility] [address] [place] [address] documented as of this encounter
--- OUTSIDE RECORDS SUMMARY | 2022-06-23 11:20 | XMS_ITS | Encounter Summary ---
:1950 Author Organization [place] Address [address] [place] [address] Care Team Providers Name Role Phone Momo Forbes Primary Care Provider Reason for Visit Reason Onset Date Comments Transplant Lab 05/16/2019 Encounter Details Date Type Department Care Team Description 05/16/2019 Telephone [facility] Sudhir Fields Trans plant Lab Transplant Clinic Amanda Fletcher RN [address] [place] [address] [phone] Social History Tobacco Use Types Packs/Day [...] CDT Provider Call: Transplant Lab/Orders Route to PATIENT REPRESENTATIVE Post Transplant Days: 1928 When patient is less than 60 days post-transplant, route high priority Reason for Call: updated lab order faxed Liver patients reporting abnormal lab results: Route to RN and Page Document lab facility information when provider is calling about annual lab orders. Delete facility wildcards when not needed. Facility Name: [facility] Facility Location: [place], [place] Outside Facility Callback needed? If needed documented in this encounter Plan of Treatment Not on filedocumented as of this encounter Visit Diagnoses Diagnosis Kidney replaced by transplant - Primary Aftercare following organ transplant Encounter for long-term current use of m edication documented in this encounter Care Teams Motion And Time Study Teacher Relationship Specialty Start Date End Date Momo Forbes PCP - General Family Practice 01/02/14 [facility] [address] [place] [address] documented as of this encounter
--- OUTSIDE RECORDS SUMMARY | 2022-06-23 11:20 | XMS_ITS | Encounter Summary ---
:1950 Author Organization [place] Address [facility] [place] [address] Care Team Providers Name Role Phone Momo [...] Family Practice 01/02/14 [facility] [address] [place] [address] documented as of this encounter
--- OUTSIDE RECORDS SUMMARY | 2022-06-23 11:20 | XMS_ITS | Encounter Summary ---
:1950 Author Organization [place] Address [address] [place] [address] Care Team Providers Name Role Phone Momo Forbes Primary Care Provider Reason for Visit Reason Comments RECHECK Post kid tx f/u Encounter Details Date Type Department Care Team Description 10/09/2019 Office Visit [facility] Shiva Presley MD [facility] [address] [facility] [address] [place] [address] Kidney transplanted (Primary Dx); Nephrology Clinic , Kidney/Pancreas Recipient Need for influenza vaccination; Ubly HTN, kidney transplant relat ed; [address] Immunosupp ression (H); SE Skin cancer screening; [place], [place] Hypovitamino sis D [phone] Social History [...] Comments Blood Pressure 169/76 10/09/2019 2:35 PM SENIOR CONSTRUCTION MANAGER Pulse 67 10/09/2019 2:35 PM SENIOR CONSTRUCTION MANAGER Temperature - - Respiratory Rate - - Oxygen Saturation 95% 10/09/2019 2:35 PM SENIOR CONSTRUCTION MANAGER Inhaled Oxygen Concentration - - Weight 132.5 kg (292 lb 1.6 oz) 10/09/2019 2:35 PM SENIOR CONSTRUCTION MANAGER Height - - Body Mass Index 39.62 10/10/2017 2:25 PM SENIOR CONSTRUCTION MANAGER documented in this encounter Progress Notes [...] 1.39 MPAG 80.2 Scribe Disclosure: I, Jeannine Caity, am serving as a scribe to document services personally performed by Shiva Presley M.D. at this visit, based upon the provider's statements to me. All documentation has been reviewed bythe aforementioned provider prior to being entered into the official medical record. OR CONSTRUCTION MANAGER documented in this encounter Nursing Notes Josseline Recinos RN - 10/09/2019 2:45 PM CST Diego Guthrie was seen today in clinic by this selling underwriter. Medications, lab orders, lab frequency,and necessary follow up discussed with patient. Patient was provided with a copy of the current lab letter. Patient voiced understanding and agreement of education and plan. Josseline Recinos RN OR CONSTRUCTION MANAGER Jeanette Finley CMA - 10/09/2019 2:45 PM CST Chief Complaint Patient presents with ??? RECHECK Post kid tx f/u Blood pressure (!) 169/76, pulse 67, weight 132.5 kg (292 lb 1.6 oz), SpO2 95 %. Jeanette Finley CMA OR CONSTRUCTION MANAGER documented in this encounter Plan of [...] deficiency documented in this encounter Care Teams Career Technical Supervisor Relationship Specialty Start Date End Date Momo Forbes PCP - General Family Practice 01/02/14 [facility] [address] [place] [address] documented as of this encounter
--- OUTSIDE RECORDS SUMMARY | 2022-06-23 11:20 | XMS_ITS | Encounter Summary ---
:1950 Author Organization [place] Address [address] [place] [address]. [place] [address] Care Team Providers Name Role Phone Momo Forbes Primary Care Provider Encounter Details Date Type Department Care Team Description 09/26/2019 [facility] [place] Scan, BLOOD GLUCOSE LOG Health Info Mgmt Non-Provider Srvcs [address] [place] [phone] Social History Tobacco Use Types Packs/Day [...] on filedocumented in this encounter Care Teams Agricultural Research Engineer Relationship Specialty Start Date End Date Momo Forbes PCP - General Family Practice 01/02/14 [facility] [address] [place] [address] documented as of this encounter
--- OUTSIDE RECORDS SUMMARY | 2022-06-23 11:20 | XMS_ITS | Encounter Summary ---
:1950 Author Organization [place] Address [address] [place] [address] Care Team Providers Name Role Phone Forbes, Ton Primary Care Provider Reason for Visit Reason Comments Clinic Care Coordination - Follow-up Encounter Details Date Type Department Care Team Description 11/16/2019 Care Coordination [facility] Sejal Rodriguez Nephrology Clinic BOGDAN Llanos Coordination - [place] [phone] Follow-up [address] (Work) [place] [address] Social History Tobacco Use Types [...] with any further questions or concerns. Romi Rodriguez RN documented in this encounter Plan of Treatment Not on filedocumented as of this encounter Visit Diagnoses Not on filedocumented in this encounter Care Teams Accounts Receivable Assistant Relationship Specialty Start Date End Date Momo Forbes PCP - General Family Practice 01/02/14 [facility] [address] [place] [address] documented as of this encounter
--- OUTSIDE RECORDS SUMMARY | 2022-06-23 11:20 | XMS_ITS | Encounter Summary ---
:1950 Author Organization [place] Address [facility] [place] [address] Care Team Providers Name Role Phone Momo Forbes Primary Care Provider Reason for Visit Reason Onset Date Comments Refill Request 02/04/2020 prograf, mycophenola te Encounter Details Date Type Department Care Team Description 02/04/2020 Refill [facility] Spong, Joseph Refill R equest Transplant Clinic MD Herminio (prograf, [address] [facility] SE [address] [facility] mycophenolate) [facility] [address] [employer] [address] [phone] [place] [address] (Wo rk) Social History [...] transplant documented in this encounter Care Teams Door Operator Relationship Specialty Start Date End Date Momo Forbes PCP - General Family Practice 01/02/14 [facility] [address] [place] [address] documented as of this encounter
--- OUTSIDE RECORDS SUMMARY | 2022-06-23 11:20 | XMS_ITS | Encounter Summary ---
:1950 Author Organization [place] Address [address] [place] [address] Care Team Providers Name Role Phone Momo Forbes Primary Care Provider Reason for Visit Reason Onset Date Comments Kidney Transplant 05/20/2019 Encounter Details Date Type Department Care Team Description 05/20/2019 Telephone [facility] Estefania Nguyen Transplant Transplant Clinic Amanda Fletcher RN [address] [place] [phone] Social History Tobacco Use Types Packs/Day [...] not charted as 12 hour trough. ?? Plan/DIGITAL FORENSICS INVESTIGATOR task: ?? Please confirm timing of lab draw. If this was not a 12 hour level, please repeat labs in May and ensure 12 hour trough level with lab draw. Enter lab orders if needed Telephone Encounter - Amanda Nguyen RN - 05/20/2019 5:38 PM CDT Issue: Tac 4.6 - however this is not charted as 12 hour trough. Plan/DIGITAL FORENSICS INVESTIGATOR task: Please confirm timing of lab draw. If this was not a 12 hour level, please repeat labs in May and ensure 12 hour trough level with lab draw. Enter lab orders if needed. documented in this encounter Plan of Treatment Not on filedocumented as of this encounter Visit Diagnoses Not on filedocumented in this encounter Care Teams Rope Cutter Relationship Specialty Start Date End Date Momo Forbes PCP - General Family Practice 01/02/14 [facility] [address] [place] [address] documented as of this encounter
--- OUTSIDE RECORDS SUMMARY | 2022-06-23 11:20 | XMS_ITS | Encounter Summary ---
:1950 Author Organization [place] Address [facility] [place] [address] Care Team Providers Name Role Phone Momo Forbes Primary Care Provider Reason for Visit Reason Onset Date Comments Refill Request 05/07/2020 Mycophenplate and Pr ograf Encounter Details Date Type Department Care Team Description 05/07/2020 Refill [facility] Joseph Quintana Refill R equest Nephrology Clinic MD Herminio (Mycophenplate and [address] Prograf) [address] [place] [address] [phone] Social History Tobacco Use Types Packs/Day Years [...] Family Practice 01/02/14 [facility] [address] [place] [address] documented as of this encounter
--- OUTSIDE RECORDS SUMMARY | 2022-06-23 11:20 | XMS_ITS | Encounter Summary ---
:1950 Author Organization [place] Address [address] [place] [address] Care Team Providers Name Role Phone Forbes, Ton Primary Care Provider Reason for Visit Reason Comments Clinic Care Coordination - Follow-up Encounter Details Date Type Department Care Team Description 10/25/2019 Care Coordination [facility] Sejal Rodriguez Nephrology Clinic BOGDAN Llanos Coordination - [place] [phone] Follow-up 9 [facility] (Work) [place] [address] Social History Tobacco Use Types [...] back (follow up BP). Romi Rodriguez RN RVIEWING CLERK Romi Rodriguez RN - 10/25/2019 10:15 AM [...] further questions or concerns. Romi Rodriguez, RN RVIEWING CLERK documented in this encounter Plan of Treatment Not on filedocumented as of this encounter Visit Diagnoses Not on filedocumented in this encounter Care Teams Wool Puller Relationship Specialty Start Date End Date Momo Forbes PCP - General Family Practice 01/02/14 [facility] [address] [place] [address] documented as of this encounter
--- OUTSIDE RECORDS SUMMARY | 2022-06-23 11:20 | XMS_ITS | Encounter Summary ---
:1950 Author Organization [place] Address [address] [place] [address] Care Team Providers Name Role Phone Momo Forbes Primary Care Provider Jospeh Quintana MD Unavailable Encounter Details Date Type Department Care Team Description 05/16/2019 External Order [facility] Nurse, Santi Txc Afterca re following organ transplant; Results Transplant Clinic Kidney replaced by transplan t; [address] [place] [address] Encounter for long-term [place] [address] Social History Tobacco Use Types [...] procedure are in Kidney replaced by [facility] transplant section. Encounter for long-term current use of medication PROTEIN RANDOM URINE Routine 05/16/2019 3:36 PM Aftercare foll owing Results for this CDT organ transplant procedure are in Kidney replaced by the [facility] ts transplant section. Encounter for long-term [...] Organization Address City/State/ZIP Code Phon e Number ZACHERYEZBea PFT LABDE SCAN (ABNORMAL) Basic metabolic panel (05/16/2019 3:43 PM CDT) Analysis Performed At Patho logist [...] Estimated >60 >60 LABDE SCAN (if ml/min/1.7 Bhutanese) 3m2 (External) GFR Estimated 56 (L) >60 LABDE SCAN (External) ml/min/1.7 3m2 Specimen (Source) Anatomical Collection Method Collection Time Re ceived Time Location / / Volume Laterality Blood specimen 05/16/2019 3:43 PM (specimen) CDT Narrative B[facility] PFT - 05/17/2019 1:22 PM CDT Verified by Praful Huff on 2018. Joseph Quintana MD LAB - BLOOD ORDERABLES Performing Organization Address City/State/ZIP Code Phon e Number BREEZE PFT LABDE SCAN (ABNORMAL) Protein random urine with Creat Ratio (05/16/2019 3:36 PM CDT) Analysis Performed At Patho logist Time Signature Protein Random 41 (H) <=14 mg/dL LABDE SCAN Urine (External) Creatinine 59.4 (L) 63.0 - LABDE SCAN Urine mg/dL 166.0 (External) mg/dL Protein Total 0.7 (H) <0.2 LABDE SCAN Ur per Cr (External) Specimen (Source) Anatomical Collection Method Collection Time Re ceived Time Location / / Volume Laterality Urine specimen 05/16/2019 3:36 PM (specimen) CDT Narrative [facility] PFT - 05/17/2019 1:22 PM CDT Verified by Praful Huff on 2018. Joseph Quintana MD LAB - URINE ORDERABLES Performing Organization Address City/State/ZIP Code Phon e Number BREEZE PFT LABDE SCAN documented in this encounter Visit Diagnoses Diagnosis Aftercare following organ transplant Kidney replaced by transplant Encounter for long-term current use of m edication documented in this encounter Care Teams Public Transit Specialist Relationship Specialty Start Date End Date Momo Forbes PCP - General Family Practice 01/02/14 [facility] [address] [place] [address] Joseph Quintana, Assigned Nephrology 03/29/21 MD Provider 7 [facility] 353 [facility] [address] [place] [address] documented as of this encounter
--- OUTSIDE RECORDS SUMMARY | 2022-06-23 11:20 | XMS_ITS | Encounter Summary ---
:1950 Author Organization [place] Address [address] [place] [address]. [place] [address] Care Team Providers Name Role Phone Momo Forbes Primary Care Provider Encounter Details Date Type Department Care Team Description 09/25/2019 Medical Correspondence [facility] Scan, PATIENT BLOOD Health Info Mgmt Non-Provider GLUCOSE SIVAKUMAR LEMUS [facility] [address] [place] [address] Social History Tobacco Use Types Packs/Day [...] on filedocumented in this encounter Care Teams Bsa/Aml Compliance Officer Relationship Specialty Start Date End Date Momo Forbes PCP - General Family Practice 01/02/14 [facility] [address] [place] [address] documented as of this encounter
--- OUTSIDE RECORDS SUMMARY | 2022-06-23 11:20 | XMS_ITS | Encounter Summary ---
:1950 Author Organization [place] Address [address] [facility] [place] [address] Care Team Providers Name Role Phone Momo Forbes Primary Care Provider Joseph Quintana MD Unavailable Encounter Details Date Type Department Care Team Description 05/26/2020 External Order [facility] Outside, Provider Results Transplant Clinic 9 [place] [address] Social History Tobacco Use Types [...] (05/26/2020 10:25 AM CDT) [facility] gist Method Time Signature WBC Count 4.49 (L) [...] filedocumented in this encounter Care Teams Civil Project Engineer Relationship Specialty Start Date End Date Momo Forbes PCP - General Family Practice 01/02/14 [facility] [address] [place] [address] Joseph Quintana, Assigned Nephrology 03/29/21 MD Provider [address] [place] [address] 353 [facility] 1932 [place], [place] [address] documented as of this encounter
--- OUTSIDE RECORDS SUMMARY | 2022-06-23 11:20 | XMS_ITS | Encounter Summary ---
:1950 Author Organization [place] Address [facility] [place] [address] Care Team Providers Name Role Phone Momo Forbes Primary Care Provider Encounter Details Date Type Department Care Team Description 10/09/2019 Orders Only [facility] Transplant Mati Recinos RN Clinic [address] [place], [place] [phone] Social History Tobacco Use Types Packs/Day [...] 3:48 PM CST Orders updated. Faxed to [facility] lab: [facility] T [phone] F [phone] ENTARY SCHOOL TEACHER documented in this encounter Plan of Treatment Not on filedocumented as of this encounter Visit Diagnoses Not on filedocumented in this encounter Care Teams Telephoto Engineer Relationship Specialty Start Date End Date Momo Forbes PCP - General Family Practice 01/02/14 [facility] [address] [place] [address] documented as of this encounter
--- OUTSIDE RECORDS SUMMARY | 2022-06-23 11:21 | XMS_ITS | Encounter Summary ---
:1950 Author Organization [place] Address [address] [facility] [place] [address] Care Team Providers Name Role Phone Momo Forbes Primary Care Provider Reason for Visit Reason Onset Date Comments Transplant Pharmacy Medication Review 01/10/2019 Encounter Details Date Type Department Care Team Description 01/10/2019 Telephone [facility] Meghan cMcormack [facility] [address] [facility] [place] [address] PHARMACY [phone] [place] [phone] (Wo rk) Social History Tobacco Use Types [...] filedocumented in this encounter Care Teams Business Analytics Analyst Relationship Specialty Start Date End Date Momo Forbes PCP - General Family Practice 01/02/14 [facility] [address] [place] [address] documented as of this encounter
--- OUTSIDE RECORDS SUMMARY | 2022-06-23 11:21 | XMS_ITS | Encounter Summary ---
:1950 Author Organization [place] Address [address] [place] [address] Care Team Providers Name Role Phone Momo Forbes Primary Care Provider Reason for Referral Consultation - Closed Specialty Diagnoses / Procedures Referred By Contact Refer red To Contact Diagnoses Obesity Kidney transplanted [facility] 4 [place] [address] Referral ID Status Reason Start Date Expiration Date Visits Requ ested Visits Authorized [id number] Closed 10/17/2018 10/17/2019 1 1 H SHRINKING MACHINE OPERATOR HELPER Reason for Visit Reason Comments Transplant Encounter Details Date Type Department Care Team Description 10/17/2018 Orders Only [facility] Kavon Nazia Obesity (P rimary Dx); Transplant Clinic BOGDAN Hicks Kidney transplanted 9 [place] [address] Social History Tobacco Use Types [...] transplant documented in this encounter Care Teams Cooker Meal Relationship Specialty Start Date End Date Forbes, Ton PCP - General Family Practice 01/02/14 [facility] [address] [place] [address] documented as of this encounter
--- OUTSIDE RECORDS SUMMARY | 2022-06-23 11:21 | XMS_ITS | Encounter Summary ---
:1950 Author Organization [place] Address [facility] [place] [address] Care Team Providers Name Role Phone Momo Forbes Primary Care Provider Encounter Details Date Type Department Care Team Description 05/17/2018 Orders Only [facility] Alana Calderon Afterc are following Transplant wireless sales expert organ transplant [address] [place] [address] (Primary Dx) [place] [address] Social History Tobacco Use Types [...] rimary documented in this encounter Care Teams Superintendent Cemetery Relationship Specialty Start Date End Date Momo Forbes PCP - General Family Practice 01/02/14 [facility] [address] [place] [address] documented as of this encounter
--- OUTSIDE RECORDS SUMMARY | 2022-06-23 11:21 | XMS_ITS | Encounter Summary ---
:1950 Author Organization [place] Address [address] [place] [address] Care Team Providers Name Role Phone Momo Forbes Primary Care Provider Encounter Details Date Type Department Care Team Description 05/31/2017 Orders Only [facility] Loy Morales, Kid olivia replaced by [facility] MD transplant Laboratory [address] [facility] 500 [facility] 609 [place] [phone] (Wo rk) Social History Tobacco Use Types [...] (ABNORMAL) Tacrolimus level (05/30/2017 1:01 PM CDT) [facility] Method Time Signature Tacrolimus Last 05/29/17 05/31/2017 [facility] Dose 1930 1:05 PM CDT [facility] Tacrolimus 3.0 (L) 5.0 - 05/31/2017 [facility] Level 15.0 ug/L 7:54 PM CDT [facility] Comment: Tacrolimus Reference Range [...] its performa nce characteristics determined by the [facility], ??Special Chemistry Laboratory. It has not [...] Phon e Number [facility] 500 [place] [address] [facility] documented in this encounter Visit Diagnoses Diagnosis Kidney replaced by transplant documented in this encounter Care Teams Assistant Producer Relationship Specialty Start Date End Date Momo Forbes PCP - General Family Practice 01/02/14 [facility] [address] [place] [address] documented as of this encounter
--- OUTSIDE RECORDS SUMMARY | 2022-06-23 11:21 | XMS_ITS | Encounter Summary ---
:1950 Author Organization [place] Address [facility] [place] [address] Care Team Providers Name Role Phone Momo Forbes Primary Care Provider Reason for Visit Reason Onset Date Comments Refill Request 10/10/2017 mycophenolae Encounter Details Date Type Department Care Team Description 10/10/2017 Refill [facility] Joseph Quintana Refill R equest Transplant Clinic MD Herminio (mycophenolae ) [address] [place] [address] [phone] [place] [address] (Wo rk) Social History Tobacco [...] Fill Date: 09/01/17 Quantity: 180 Janelle Flowers [facility] [phone] IO DESIGNER documented in this encounter Plan of Treatment Not on filedocumented as of this encounter Visit Diagnoses Diagnosis 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
--- OUTSIDE RECORDS SUMMARY | 2022-06-23 11:21 | XMS_ITS | Encounter Summary ---
:1950 Author Organization [place] Address [address] [place] [address] Care Team Providers Name Role Phone Momo Forbes Primary Care Provider Joseph Quintana MD Unavailable Encounter Details Date Type Department Care Team Description 09/09/[address] [facility] Nurse, Tx Kidney replaced by Results Transplant Clinic transplant [address] [place] [phone] Social History Tobacco Use Types Packs/Day [...] 07/15/2017 10:48 AM Result s for this TRAIN DRIVER procedure are i n the results section. BASIC METABOLIC Routine 07/15/2017 10:48 AM Kidney replaced by Results for this PANEL TRAIN DRIVER transplant procedure are i n the results [...] Results (ABNORMAL) Hemoglobin A1c (07/15/2017 10:48 AM TRAIN DRIVER) Patholo gist Method Time Signature Hemoglobin A1C >14.0 (H) <=6.4 % LABDE SCAN (External) Specimen (Source) Anatomical Collection Method Collection Time Re ceived Time Location / / Volume Laterality Blood specimen 07/15/2017 10:48 (specimen) AM TRAIN DRIVER Narrative JESSICA PFT - 09/09/2017 9:36 PM TRAIN DRIVER Verified by Sharon Martinez on 8. Patient Reported LAB - BLOOD ORDERABLES Performing Organization Address City/State/ZIP Code Phon e Number JESSICA PFT LABDE SCAN (ABNORMAL) Basic metabolic panel (07/15/2017 10:48 AM TRAIN DRIVER) Analysis Performed At Patho logist Time [...] 55 (L) >60 LABDE SCAN (if ml/min/1.7 Hong Konger) 3m2 (External) GFR Estimated 46 (L) >60 LABDE SCAN (External) ml/min/1.7 3m2 Specimen (Source) Anatomical Collection Method Collection Time Re ceived Time Location / / Volume Laterality Blood specimen 07/15/2017 10:48 (specimen) AM TRAIN DRIVER Narrative [facility]FT - 09/09/2017 9:36 PM TRAIN DRIVER Verified by Sharon Martinez on 8. [place] [...] Narrative [facility] PFT - 09/09/2017 9:39 PM TRAIN DRIVER Verified by Sharon Martinez on 8. Patient [...] Narrative [facility] PFT - 09/09/2017 9:39 PM TRAIN DRIVER Verified by Sharon Martinez on 8. [place] [...] 51 (L) >60 LABDE SCAN (if ml/min/1.7 Hong Konger) 3m2 (External) GFR Estimated 42 (L) >60 LABDE SCAN (External) ml/min/1.7 3m2 Specimen (Source) Anatomical Collection Method Collection Time Re ceived Time Location / / Volume Laterality Blood specimen 05/30/2017 9:32 AM (specimen) CDT Narrative [facility] PFT - 09/09/2017 9:39 PM TRAIN DRIVER Verified by Sharon Martinez on 8. [place] [...] Narrative [facility] PFT - 09/09/2017 9:44 PM TRAIN DRIVER Verified by Sharon Martinez on 8. Patient Reported LAB - BLOOD ORDERABLES Performing Organization Address City/[facility]/ZIP Code Phon e Number BREEZE PFT [...] Narrative [facility] PFT - 09/09/2017 9:44 PM TRAIN DRIVER Verified by Sharon Martinez on 8. Patient Reported LAB - BLOOD ORDERABLES Performing Organization Address City/[facility] Code Phon e Number BREEZE PFT LABDE SCAN (ABNORMAL) Hemoglobin A1c (01/19/2017 9:30 AM CDT) Analysis Performed At [facility] logist Time Signature Hemoglobin A1C 12.4 (H) <=6.4 % LABDE SCAN (External) Specimen (Source) Anatomical Collection Method Collection Time Re ceived Time Location / / Volume Laterality Blood specimen 01/19/2017 9:30 AM (specimen) CDT Narrative BREEZE PFT - 09/09/2017 9:44 PM TRAIN DRIVER Verified by Sharon Martinez on 8. Patient Reported LAB - BLOOD ORDERABLES Performing Organization Address City/[facility]/ZIP Code Phon e Number BREEZE PFT [...] 55 (L) >60 LABDE SCAN (if ml/min/1.7 Hong Konger) 3m2 (External) GFR Estimated 46 (L) >60 LABDE SCAN (External) ml/min/1.7 3m2 Specimen (Source) Anatomical Collection Method Collection Time Re ceived Time Location / / Volume Laterality Blood specimen 01/19/2017 9:30 AM (specimen) CDT Narrative JESSICA PFT - 09/09/2017 9:44 PM TRAIN DRIVER Verified by Sharon Martinez on 8. Patient Reported LAB - BLOOD ORDERABLES Performing Organization Address City/State/ZIP Code Phon e Number BREEZE PFT LABDE SCAN documented in this encounter Visit Diagnoses Diagnosis Kidney replaced by transplant documented in this encounter Care Teams Marble And Granite Polisher Relationship Specialty Start Date End Date Momo Forbes PCP - General Family Practice 01/02/14 [facility] [address] [place] [address] Joseph Quintana, Assigned Nephrology 03/29/21 MD Provider [address] [place] [address] 353 [facility] 1932 [place] [address] documented as of this encounter
--- OUTSIDE RECORDS SUMMARY | 2022-06-23 11:21 | XMS_ITS | Encounter Summary ---
:1950 Author Organization [place] Address [facility] [place] [address] Care Team Providers Name Role Phone Momo Forbes Primary Care Provider Reason for Visit Reason Onset Date Comments Refill Request 12/22/2018 prograf, mycophenola te (PT IS OUT OF MEDS) Encounter Details Date Type Department Care Team Description 12/22/2018 Refill M [facility] Joseph Quintana Refsid R alenest (prograf, Transplant Clinic MD Herminio mycophenolate (PT IS OUT 9[address] [facility] SE 717 [facility] SE OF MEDS)) [facility] 353 [facility] 3130 [phone] [place], [place] [phone] ( rk) Social History Tobacco Use Types Packs/Day [...] transplant documented in this encounter Care Teams Transportation Engineer Relationship Specialty Start Date End Date Momo Forbes PCP - General Family Practice 01/02/14 [facility] [address] [place] [address] documented as of this encounter
--- OUTSIDE RECORDS SUMMARY | 2022-06-23 11:21 | XMS_ITS | Encounter Summary ---
:1950 Author Organization [place] Address [facility] [place] [address] Care Team Providers Name Role Phone Momo Forbes Primary Care Provider Reason for Visit Reason Onset Date Comments Refill Request 06/28/2017 mycophenolate Encounter Details Date Type Department Care Team Description 06/28/[address] [facility] Joseph Quintana Refill R equest Transplant Clinic MD Herminio (mycophenolate) [address] [place] [address] [phone] [place] [address] (Wo rk) Social History [...] Last Fill Date: 05/31/17 Quantity: 180 Janelle Lionel [facility] [phone] TARY PILOT documented in this encounter Plan of Treatment Not on filedocumented as of this encounter Visit Diagnoses Diagnosis Kidney transplanted - Primary Kidney replaced by transplant documented in this encounter Care Teams Slunk Skin Curer Relationship Specialty Start Date End Date Momo Forbes PCP - General Family Practice 01/02/14 [facility] [address] [place] [address] documented as of this encounter
--- OUTSIDE RECORDS SUMMARY | 2022-06-23 11:21 | XMS_ITS | Encounter Summary ---
:1950 Author Organization [place] Address [address] [place] [address]. [place] [address] Care Team Providers Name Role Phone Momo Forbes Primary Care Provider Reason for Visit Reason Onset Date Comments Refill Request 02/28/2019 Encounter Details Date Type Department Care Team Description 02/28/2019 Refill [facility] Shiva Presley MD Refill Request Nephrology Clinic [facility] [address] [place] [address] [phone] Social History Tobacco Use Types Packs/Day Years [...] disease documented in this encounter Care Teams Licensed And Certified Midwife Relationship Specialty Start Date End Date Momo Forbes PCP - General Family Practice 01/02/14 [facility] [address] [place] [address] documented as of this encounter
--- OUTSIDE RECORDS SUMMARY | 2022-06-23 11:21 | XMS_ITS | Encounter Summary ---
:1950 Author Organization [place] Address [facility] [place] [address] Care Team Providers Name Role Phone Momo Forbes Primary Care Provider Reason for Visit Reason Onset Date Comments Refill Request 08/31/2017 mycophenolate Encounter Details Date Type Department Care Team Description 08/31/2017 Refill M [facility] Mariano, Joseph Refill R equest Transplant Clinic MD Herminio (mycophenolate) [address] [place] [phone] [place] [address] (Wo rk) Social History Tobacco [...] documented in this encounter Care Teams Creative Perfumer Relationship Specialty Start Date End Date Momo Forbes PCP - General Family Practice 01/02/14 [facility] [address] [place], [place] [phone] documented as of this encounter
--- OUTSIDE RECORDS SUMMARY | 2022-06-23 11:21 | XMS_ITS | Encounter Summary ---
:1950 Author Organization [place] Address [facility] [place] [address] Care Team Providers Name Role Phone Momo Forbes Primary Care Provider Reason for Visit Reason Onset Date Comments Transplant Pharmacy Medication Review 01/19/2018 Encounter Details Date Type Department Care Team Description 01/19/2018 Telephone [facility] Beny Staton, Transplant Pharmacy [address] [facility] [place] [address] [facility] [phone] PH[place]ACY [place], [place] [phone] Social History Tobacco Use Types Packs/Day Years [...] in this encounter Care Teams Program Manager Rn Relationship Specialty Start Date End Date Momo Forbes PCP - General Family Practice 01/02/14 [facility] [address] [place] [address] documented as of this encounter
--- OUTSIDE RECORDS SUMMARY | 2022-06-23 11:21 | XMS_ITS | Encounter Summary ---
:1950 Author Organization [place] Address [facility] [place] [address] Care Team Providers Name Role Phone Momo [...] filedocumented in this encounter Care Teams Manager Application Relationship Specialty Start Date End Date Momo Forbes PCP - General Family Practice 01/02/14 [facility] [address] [place] [address] documented as of this encounter
--- OUTSIDE RECORDS SUMMARY | 2022-06-23 11:21 | XMS_ITS | Encounter Summary ---
:1950 Author Organization [place] Address [facility] [place] [address] Care Team Providers Name Role Phone Momo Forbes Primary Care Provider Encounter Details Date Type Department Care Team Description 08/18/[address] [facility] Josseline Recinos, Transplant Clinic RN [address] [place] [address] Social History Tobacco Use Types [...] letter updated: 08/17/18 Lab orders faxed to: [facility] [phone] (Phone) [facility]. ING ROLL OPERATOR documented in this encounter Plan of Treatment Not on filedocumented as of this encounter Visit Diagnoses Not on filedocumented in this encounter Care Teams Dress Designer Relationship Specialty Start Date End Date Momo Forbes PCP - General Family Practice 01/02/14 [facility] [address] [place], [place] [id number] documented as of this encounter
--- OUTSIDE RECORDS SUMMARY | 2022-06-23 11:21 | XMS_ITS | Encounter Summary ---
:1950 Author Organization [place] Address [facility] [place] [address] Care Team Providers Name Role Phone Momo Forbes Primary Care Provider Reason for Visit Reason Onset Date Comments Transplant 08/31/2017 Encounter Details Date Type Department Care Team Description 08/31/2017 Telephone [facility] Transplant Amanda Garduno Transplant Clinic M, RN [address] [place] [address] [phone] Social History Tobacco Use Types Packs/Day [...] General Family Practice 01/02/14 [facility] [address] [place] [address] documented as of this encounter
--- OUTSIDE RECORDS SUMMARY | 2022-06-23 11:21 | XMS_ITS | Encounter Summary ---
:1950 Author Organization [place] Address [address] [place] [address] Care Team Providers Name Role Phone Momo Forbes Primary Care Provider Joseph Quintana MD Unavailable Encounter Details Date Type Department Care Team Description 05/15/2018 External Order Results [facility] Nurse, [facility] Transplant Clinic [address] [place] [address] Social History Tobacco Use Types [...] CBC with platelets (05/15/2018 2:16 PM CDT) P athologist Signature WBC Count 5.9 4.5 - [...] 54 (L) >60 LABDE SCAN (if ml/min/1.7 Japanese) 3m2 (External) GFR Estimated 44 (L) >60 [...] filedocumented in this encounter Care Teams Associate Dean Relationship Specialty Start Date End Date Momo Forbes PCP - General Family Practice 01/02/14 [facility] [address] [place] [address] Joseph Quintana, Assigned Nephrology 03/29/21 MD Provider 717 [facility] 353 [facility] [address] [place] [address] documented as of this encounter
--- OUTSIDE RECORDS SUMMARY | 2022-06-23 11:21 | XMS_ITS | Encounter Summary ---
:1950 Author Organization [place] Address [address] [place] [address] Care Team Providers Name Role Phone Momo Forbes Primary Care Provider Reason for Visit Reason Onset Date Comments Refill Request 12/19/2017 Encounter Details Date Type Department Care Team Description 12/19/2017 Refill [facility] Joseph Quintana MD Refill Request Transplant Clinic [address] [place] [address] [address] [place] [address] [phone] [place] [address] (Wo rk) Social History [...] Fill Date: 11/14/17 Quantity: 60 Janelle Flowers [facility] [phone] documented in this encounter Plan of Treatment Not on filedocumented as of this encounter Visit Diagnoses Diagnosis Kidney transplanted Kidney replaced by transplant documented in this encounter Care Teams Air Traffic Control Manager Relationship Specialty Start Date End Date Momo Forbes PCP - General Family Practice 01/02/14 [facility] [address] [place] [address] documented as of this encounter
--- OUTSIDE RECORDS SUMMARY | 2022-06-23 11:21 | XMS_ITS | Encounter Summary ---
:1950 Author Organization [place] Address [address] [place] [address] Care Team Providers Name Role Phone ForbesMomo Primary Care Provider Reason for Visit Reason Onset Date Comments Transplant 11/07/2017 Encounter Details Date Type Department Care Team Description 11/07/[address] [facility] Transplant Nazia Jacobson, Transplant Clinic RN [address] [place], [place] [phone] Social History Tobacco Use [...] Will try back Telephone Encounter - Nazia Jacobson, BOGDAN - 11/07/2017 11:35 AM CDT ISSUE: Tac 10.7 (goal 4-6) PLAN: Verify tac dose and if level was a good 12 hour trough. Any new medications? Since previous levels within goal range, repeat tac level in 1 week. FLY RAISER LOCKSTITCH TASK: Call patient with instructions per plan. Enter lab orders if needed. documented in this encounter Plan of Treatment Not on filedocumented as of this encounter Visit Diagnoses Not on filedocumented in this encounter Care Teams Concrete Swimming Pool Installer Relationship Specialty Start Date End Date Momo Forbes PCP - General Family Practice 01/02/[address] [address] documented as of this encounter
--- OUTSIDE RECORDS SUMMARY | 2022-06-23 11:21 | XMS_ITS | Encounter Summary ---
:1950 Author Organization [place] Address [address] [place] [address] Care Team Providers Name Role Phone Momo Forbes Primary Care Provider Reason for Visit Reason Onset Date Comments Transplant Lab 09/06/2018 Encounter Details Date Type Department Care Team Description 09/06/2018 Telephone [facility] Transplant Adonay, Transplant Lab Clinic BOGDAN Lopes [address] [phone] Social History Tobacco Use Types Packs/Day Years Used Date Smoking Tobacco: Former Cigars Quit : 08/22/2006 Smokeless Tobacco: Never Alcohol Use Standard Drinks/Week Comments Yes 0 (1 standard drink = 0.6 oz pure alcoho l) occasional drink. Sex Assigned at Date Recorded Not on file documented as of this encounter Miscellaneous Notes Telephone Encounter - Marianne Urias RN - 09/12/2018 11:58 AM TAXONOMY TEACHER Attempted to reach pt again regarding his labs, no answer. Left message for pt to return call. NOMY TEACHER Telephone Encounter - Marianne Urias RN - 09/07/2018 1:30 PM TAXONOMY TEACHER Attempted to reach pt again regarding labs, no answer. Left message for pt to return call. NOMY TEACHER Telephone Encounter - Marianne Urias RN - 09/06/2018 12:59 PM TAXONOMY TEACHER ISSUE: Creatinine 1.69, up from pt baseline [...] Left message for pt to return call. NOMY TEACHER documented in this encounter Plan of Treatment Not on filedocumented as of this encounter Visit Diagnoses Not on filedocumented in this encounter Care Teams Probation Supervisor Relationship Specialty Start Date End Date Momo Forbes PCP - General Family Practice 01/02/14 [facility] [address] [place] [address] documented as of this encounter
--- OUTSIDE RECORDS SUMMARY | 2022-06-23 11:21 | XMS_ITS | Encounter Summary ---
:1950 Author Organization [place] Address [address] [place] [address] Care Team Providers Name Role Phone ForbesMomo Primary Care Provider Reason for Visit Reason Onset Date Comments Transplant 06/01/2017 Diego returning call Left on 06/05/17 Encounter Details Date Type Department Care Team Description 06/01/2017 Telephone [facility] Shiva Kahn, head boys tennis coach (Diego Transplant Clinic [facility] returning call Left [address] on 06/05/17) [place], [place] [address] [place], [place] [phone] Social History Tobacco Use Types Packs/Day [...] care to get a good 12-hour level. SREEKANTH TASK: Please fax lab order for tacrolimus level Telephone Encounter - Mary Whitehead Chance - 06/06/2017 7:47 AM CDT Please call Diego. Called on Tuesday left VM to call him on Tuesday06/06/17. ADDENDUM: CHIEF OF HOSPITAL MEDICINE TASK: Call with questions and instruction per plan below. Telephone Encounter - Shiva Kahn, RN - 06/01/2017 2:41 PM CDT Tacrolimus [...] on filedocumented in this encounter Care Teams Provider Relations Specialist Relationship Specialty Start Date End Date Momo Forbes PCP - General Family Practice 01/02/[address] [address] documented as of this encounter
--- OUTSIDE RECORDS SUMMARY | 2022-06-23 11:21 | XMS_ITS | Encounter Summary ---
:1950 Author Organization [place] Address [facility] [place] [address] Care Team Providers Name Role Phone Momo [...] on filedocumented in this encounter Care Teams Developer Automatic Relationship Specialty Start Date End Date Momo Forbes PCP - General Family Practice 01/02/14 [facility] [address] [place] [address] documented as of this encounter
--- OUTSIDE RECORDS SUMMARY | 2022-06-23 11:21 | XMS_ITS | Encounter Summary ---
:1950 Author Organization [place] Address [address] [place] [address] Care Team Providers Name Role Phone ForbesMomo Primary Care Provider Reason for Visit Reason Onset Date Comments Appointment 08/24/2018 Encounter Details Date Type Department Care Team Description 08/24/2018 Telephone [facility] Nephrology Romi Garcia RN Appointment [facility] [phone] ([facility]) [address] [place] [address] [phone] Social History Tobacco Use Types Packs/Day [...] patient to call back. Romi Rodriguez RN FILL GAS PLANT FIELD TECHNICIAN Telephone Encounter - Romi Rodriguez RN - 08/24/2018 1:54 PM CST Left voicemail for patient to call back (follow up from last transplant appointment). Romi Rodriguez RN FILL GAS PLANT FIELD TECHNICIAN documented in this encounter Plan of Treatment Not on filedocumented as of this encounter Visit Diagnoses Not on filedocumented in this encounter Care Teams Gas Plant Dispatcher Relationship Specialty Start Date End Date Momo Forbes PCP - General Family Practice 01/02/14 [facility] [address] [place] [address] documented as of this encounter
--- OUTSIDE RECORDS SUMMARY | 2022-06-23 11:21 | XMS_ITS | Encounter Summary ---
:1950 Author Organization [place] Address [address] [facility] [place] [address] Care Team Providers Name Role Phone Momo Forbes Primary Care Provider Reason for Visit Reason Onset Date Comments Appointment 10/05/2017 Encounter Details Date Type Department Care Team Description 10/05/2017 Telephone [facility] Shiva Presley MD Appointment Nephrology Clinic [facility] [address] [place] [address] [phone] Social History Tobacco Use Types Packs/Day Years [...] or concernsahead of appointment. Romi Rodriguez RN TESTER documented in this encounter Plan of Treatment Not on filedocumented as of this encounter Visit Diagnoses Not on filedocumented in this encounter Care Teams Dialysis Biomed Technician Relationship Specialty Start Date End Date Momo Forbes PCP - General Family Practice 01/02/14 [facility] [address] [place] [address] documented as of this encounter
--- OUTSIDE RECORDS SUMMARY | 2022-06-23 11:21 | XMS_ITS | Encounter Summary ---
:1950 Author Organization [place] Address [address] [place] [address] Care Team Providers Name Role Phone Momo Forbes Primary Care Provider Reason for Visit Reason Comments RECHECK Kidney tx follow up Encounter Details Date Type Department Care Team Description 10/10/2017 Office Visit [facility] Shiva Presley Sta tus post kidney transplant (Primary Dx); Nephrology Clinic Immunosuppression (H); [facility] Type 2 diabetes mellitus wit h stage 3 chronic kidney disease, with long-term current use of insulin (H); [address] [place] [address] Benign essential hypertension; [place] [address] Hyperlipidemia, unspecified hyperlipidemia type; [place], [place] RANJAN 220 Skin cancer screening [phone] [place] [address] (Wo rk) Social History Tobacco [...] Comments Blood Pressure 153/74 10/10/2017 2:25 PM CLINICAL SERVICES MANAGER Pulse 55 10/10/2017 2:25 PM CLINICAL SERVICES MANAGER Temperature 36.7 ??C (98.1 ??F) 10/10/2017 2:25 PM CLINICAL SERVICES MANAGER Respiratory Rate - - Oxygen Saturation 98% 10/10/2017 2:25 PM CLINICAL SERVICES MANAGER Inhaled Oxygen Concentration - - Weight 135.4 kg (298 lb 6.4 oz) 10/10/2017 2:25 PM CLINICAL SERVICES MANAGER Height 182.9 cm (6') 10/10/2017 2:25 PM CLINICAL SERVICES MANAGER Body Mass Index 40.47 10/10/2017 2:25 PM CLINICAL SERVICES MANAGER documented in this encounter Progress Notes [...] is well as a referral to his loss prevention investigator for monitoring for any skin cancers. 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 ICAL SERVICES MANAGER documented in this encounter Nursing Notes Marcelina Zurita CMA - 10/10/2017 2:45 PM CST [...] kg (298 lb 6.4 oz). Medication Reconciliation: amparo ZURITA CMA . ICAL SERVICES MANAGER documented in this encounter Plan of [...] skin documented in this encounter Care Teams Shank Taper Relationship Specialty Start Date End Date Momo Forbes PCP - General Family Practice 01/02/14 [facility] [address] [place] [address] documented as of this encounter
--- OUTSIDE RECORDS SUMMARY | 2022-06-23 11:21 | XMS_ITS | Encounter Summary ---
:1950 Author Organization [place] Address [address] [place] [address] Care Team Providers Name Role Phone Momo Forbes Primary Care Provider Reason for Visit Reason Comments RECHECK annual Follow up Kidney TX Encounter Details Date Type Department Care Team Description 10/17/2018 Office Visit [facility] Shiva Presley MD [facility] [facility] 220 [place], [place] [address] Type 2 diabetes mellitus with other spec ified complication, with long-term current use of insulin (H) (Primary Dx); Nephrology Clinic [facility] Kidney/Pancreas Recipient Kidney replaced by transplant; [place] [facility] following organ tr ansplant; 909 [facility] Immunosupp ression (H); SE HTN, kidney transplant relat ed; [place], [place] Severe obesi ty in adult, BMI [...] Comments Blood Pressure 162/77 10/17/2018 1:54 PM NETWORK SUPPORT ENGINEER Pulse 60 10/17/2018 1:54 PM NETWORK SUPPORT ENGINEER Temperature 36.5 ??C (97.7 ??F) 10/17/2018 1:54 PM NETWORK SUPPORT ENGINEER Respiratory Rate - - Oxygen Saturation 94% 10/17/2018 1:54 PM NETWORK SUPPORT ENGINEER Inhaled Oxygen Concentration - - Weight 133.7 kg (294 lb 12.8 oz) 10/17/2018 1:54 PM NETWORK SUPPORT ENGINEER Height - - Body Mass Index 39.98 10/10/2017 2:25 PM NETWORK SUPPORT ENGINEER documented in this encounter Progress Notes Joseph [...] 50%0. Also offered to refer to rn digestive. # Mineral Bone Disorder: - Secondary renal [...] PREVIOUSLY REPORTED 1999 MPACID 1.39 MPAG 80.2 ORK SUPPORT ENGINEER documented in this encounter Nursing Notes Martina [...] kg (294 lb 12.8 oz). Martina Boyle ORK SUPPORT ENGINEER documented in this encounter Plan of [...] >40 documented in this encounter Care Teams Music Store Manager Relationship Specialty Start Date End Date Momo Forbes PCP - General Family Practice 01/02/14 [facility] [address] [place] [address] documented as of this encounter
--- OUTSIDE RECORDS SUMMARY | 2022-06-23 11:21 | XMS_ITS | Encounter Summary ---
:1950 Author Organization [place] Address [facility] [place] [address] Care Team Providers Name Role Phone Momo Forbes Primary Care Provider Reason for Visit Reason Onset Date Comments Refill Request 01/17/2019 Encounter Details Date Type Department Care Team Description 01/17/2019 Refill [facility] Joseph Quintana MD Refill Request Transplant Clinic [address] [place] [address] [address] [place], [place] [phone] [place], [place] [phone] (Wo rk) Social History Tobacco Use Types [...] transplant documented in this encounter Care Teams Bezel Cutter Relationship Specialty Start Date End Date Momo Forbes PCP - General Family Practice 01/02/14 [facility] [address] [place] [address] documented as of this encounter
--- OUTSIDE RECORDS SUMMARY | 2022-06-23 11:21 | XMS_ITS | Encounter Summary ---
:1950 Author Organization [place] Address [address] [place] [address] Care Team Providers Name Role Phone Momo Forbes Primary Care Provider Encounter Details Date Type Department Care Team Description 11/03/2017 Orders Only [facility] Loy Morales, Rachid olivia replaced by [facility] MD transplant Laboratory [address] [facility] 500 [facility] 609 [place] [address] (Wo rk) Social History Tobacco Use Types [...] [facility] Last Dose 2:20 PM CDT [facility] Tacrolimus 10.7 5.0 - 11/06/2017 [facility] Level 15.0 ug/L 1:00 PM CDT [facility] Comment: Tacrolimus [...] performa nce characteristics determined by the [facility], ??Special Chemistry Laboratory. It has [...] / Volume Laterality Blood specimen 11/03/2017 11:30 8 2:20 (specimen) AM CDT PM CDT Orlando Richey MD LAB - BLOOD ORDERABLES Performing Organization Address City/State/ZIP Code Phon e Number [facility] [address] [place], [place] [phone] [place] [address] documented in this encounter Visit Diagnoses Diagnosis Kidney replaced by transplant documented in this encounter Care Teams Community Planning Technician Relationship Specialty Start Date End Date Momo Forbes PCP - General Family Practice 01/02/14 [facility] [address] [place] [address] documented as of this encounter
--- OUTSIDE RECORDS SUMMARY | 2022-06-23 11:21 | XMS_ITS | Encounter Summary ---
:1950 Author Organization [place] Address [facility] [place] [address] Care Team Providers Name Role Phone Momo Forbes Primary Care Provider Encounter Details Date Type Department Care Team Description 11/10/2017 [facility] [address] [place] [address] 5-[address] [phone] Social History Tobacco Use Types Packs/Day Years [...] disease documented in this encounter Care Teams Magnaflux Operator Relationship Specialty Start Date End Date Momo Forbes PCP - General Family Practice 01/02/14 [facility] [address] [place] [address] documented as of this encounter
--- OUTSIDE RECORDS SUMMARY | 2022-06-23 11:21 | XMS_ITS | Encounter Summary ---
:1950 Author Organization [place] Address [facility] [place] [address] Care Team Providers Name Role Phone Momo Forbes Primary Care Provider Reason for Visit Reason Onset Date Comments Erroneous encounter-disregard 05/17/2018 Encounter Details Date Type Department Care Team Description 05/17/2018 Telephone [facility] [place], Erroneous Transplant Clinic BOGDAN Lopes encounter-disregard [address] [place] [phone] Social History Tobacco Use Types Packs/Day [...] on filedocumented in this encounter Care Teams Waiter/Waitress Tourist Class Relationship Specialty Start Date End Date Momo Forbes PCP - General Family Practice 01/02/14 [facility] [address] [place] [address] documented as of this encounter
--- OUTSIDE RECORDS SUMMARY | 2022-06-23 11:21 | XMS_ITS | Encounter Summary ---
:1950 Author Organization [place] Address [address] [place] [address] Care Team Providers Name Role Phone Momo Forbes Primary Care Provider Joseph Quintana MD Unavailable Encounter Details Date Type Department Care Team Description 09/04/2018 External Order Results [facility] Nurse, [facility] Transplant Clinic 9 [place] [address] Social History Tobacco Use Types [...] 2:50 PM R esults for this DIFFERENTIAL DOCTOR OF NURSE ANESTHESIA procedure are i n the results section. BASIC METABOLIC PANEL Routine 09/04/2018 2:50 PM Results for this DOCTOR OF NURSE ANESTHESIA procedure are i n the results section. PROTEIN RANDOM URINE Routine 09/04/2018 2:49 PM R esults for this DOCTOR OF NURSE ANESTHESIA procedure are i n the results section. documented in this encounter Results (ABNORMAL) CBC with platelets differential (09/04/2018 2:50 PM DOCTOR OF NURSE ANESTHESIA) [facility] Method Time Signature WBC Count 3.8 (L) [...] Laterality Blood specimen 09/04/2018 2:50 PM (specimen) DOCTOR OF NURSE ANESTHESIA Narrative JESSICA PFT - 09/06/2018 9:13 AM DOCTOR OF NURSE ANESTHESIA Verified by Cassie Florian on 09/06/2018. Patient Reported LAB - BLOOD ORDERABLES Performing Organization Address City/State/ZIP Code Phon e Number [facility] LABDE SCAN (ABNORMAL) Basic metabolic panel (09/04/2018 2:50 PM DOCTOR OF NURSE ANESTHESIA) Analysis Performed At Patho logist Time Signature [...] 49 (L) >60 LABDE SCAN (if ml/min/1.7 Romanian) 3m2 (External) GFR Estimated 41 (L) >60 LABDE SCAN (External) ml/min/1.7 3m2 Specimen (Source) Anatomical Collection Method Collection Time Re ceived Time Location / / Volume Laterality Blood specimen 09/04/2018 2:50 PM (specimen) DOCTOR OF NURSE ANESTHESIA Narrative [facility] - 09/06/2018 9:13 AM DOCTOR OF NURSE ANESTHESIA Verified by Cassie Florian on 09/06/2018. Patient Reported LAB - BLOOD ORDERABLES Performing Organization Address City/State/ZIP Code Phon e Number [facility] LABDE SCAN (ABNORMAL) Protein random urine with Creat Ratio (09/04/2018 2:49 PM DOCTOR OF NURSE ANESTHESIA) P athologist Signature Protein Random 72 (H) 1 - 14 LABDE SCAN Urine mg/dL (External) Creatinine 104.0 63.0 - LABDE SCAN Urine mg/dL 166.0 (External) mg/dL Protein Total 0.7 (H) <0.2 LABDE SCAN Ur per Cr (External) Specimen (Source) Anatomical Collection Method Collection Time Re ceived Time Location / / Volume Laterality Urine specimen 09/04/2018 2:49 PM (specimen) DOCTOR OF NURSE ANESTHESIA Narrative [facility] - 09/06/2018 9:13 AM DOCTOR OF NURSE ANESTHESIA Verified by Cassie Florian on 09/06/2018. Patient Reported LAB - URINE ORDERABLES Performing Organization Address City/State/ZIP Code Phon e Number [facility] LABDE SCAN documented in this encounter Visit Diagnoses Not on filedocumented in this encounter Care Teams Electric Golf Cart Repairer Relationship Specialty Start Date End Date Momo Forbes PCP - General Family Practice 01/02/14 [facility] [address] [place] [address] Joseph Quintana, Assigned Nephrology 03/29/21 MD Provider [address] [place] [address] [address] [place] [address] documented as of this encounter
--- OUTSIDE RECORDS SUMMARY | 2022-06-23 11:21 | XMS_ITS | Encounter Summary ---
:1950 Author Organization [place] Address [address] [place] [address] Care Team Providers Name Role Phone Momo Forbes Primary Care Provider Encounter Details Date Type Department Care Team Description 07/15/2017 Orders Only [facility] Loy Morales Kid olivia replaced by [facility] MD transplant Laboratory [address] [facility] 500 [facility] 609 [place] [id number] (Wo rk) Social History Tobacco Use Types [...] by Results for this MASS SPECTROMETRY AM LEAD RADIOLOGIC TECHNOLOGIST transplant procedure are in the results section. documented in this encounter Results (ABNORMAL) Tacrolimus level (07/15/2017 10:48 AM [facility]) [facility] Method Time Signature Tacrolimus Last 0000 07/19/2017 [facility] Dose 07/15/17 10:48 AM [facility] Tacrolimus 4.4 (L) 5.0 - 07/19/2017 [facility] Level 15.0 ug/L 2:38 PM [facility] Comment: Tacrolimus Reference Range Kidney [...] its performa nce characteristics determined by the [facility] [...] Blood specimen 07/15/2017 10:48 7 (specimen) AM LEAD RADIOLOGIC TECHNOLOGIST 10:47 AM LEAD RADIOLOGIC TECHNOLOGIST Orlando Richey MD LAB - BLOOD ORDERABLES Performing Organization Address City/State/ZIP Code Phon e Number [facility] [address] [address] [facility] 500 [place] [address] [facility] documented in this encounter Visit Diagnoses Diagnosis Kidney replaced by transplant documented in this encounter Care Teams Wood Sash And Frame Carpenter Relationship Specialty Start Date End Date Momo Forbes PCP - General Family Practice 01/02/14 [facility] 1999 [place] [address] documented as of this encounter
--- OUTSIDE RECORDS SUMMARY | 2022-06-23 11:21 | XMS_ITS | Encounter Summary ---
:1950 Author Organization [place] Address [facility] [place] [address] Care Team Providers Name Role Phone Momo Forbes Primary Care Provider Reason for Visit Reason Onset Date Comments Refill Request 10/11/2017 Encounter Details Date Type Department Care Team Description 10/11/2017 Refill [facility] Transplant Debbie Calderon LPN Refill Request Clinic [address] [place] [address] [phone] Social History Tobacco Use Types Packs/Day [...] documented in this encounter Care Teams Machine Clothing Worker Relationship Specialty Start Date End Date Momo Forbes PCP - General Family Practice 01/02/14 [facility] [address] [place] [address] documented as of this encounter
--- OUTSIDE RECORDS SUMMARY | 2022-06-23 11:21 | XMS_ITS | Encounter Summary ---
:1950 Author Organization [place] Address [address] [place] [address] Care Team Providers Name Role Phone Forbes, Ton Primary Care Provider Reason for Visit Reason Onset Date Comments Refill Request 10/25/2018 Encounter Details Date Type Department Care Team Description 10/25/2018 Refill [facility] Joseph Quintana MD Refill Request Transplant Clinic [address] [place] [address] 1932 [place], [place] [phone] [place] [address] (Wo rk) Social History Tobacco [...] Marianne Urias RN - 10/26/2018 9:04 AM [facility] ISSUE: Refill request for MM[facility] 03/2019 appt [...] to call if further questions or concerns. [facility] documented in this encounter Plan of Treatment Not on filedocumented as of this encounter Visit Diagnoses Diagnosis Kidney transplanted Kidney replaced by transplant documented in this encounter Care Teams Senior Net Developer Relationship Specialty Start Date End Date Momo Forbes PCP - General [facility] Practice 01/02/14 [facility] [address] [place] [address] documented as of this encounter
--- OUTSIDE RECORDS SUMMARY | 2022-06-23 11:21 | XMS_ITS | Encounter Summary ---
:1950 Author Organization [place] Address [address] [place] [address] Care Team Providers Name Role Phone Momo Forbes Primary Care Provider Reason for Visit Reason Onset Date Comments Transplant 10/18/2018 post transplant sche duling Encounter Details Date Type Department Care Team Description 10/18/2018 Telephone [facility] Nazia Jacobson Transplant (post Transplant Clinic BOGDAN Hickscustomizer scheduling) [address] [place] [phone] Social History Tobacco Use Types Packs/Day [...] another detailed message with weight managements number. HAND ENGINEER Telephone Encounter - Maribel Plunkett - 10/18/2018 9:32 AM CST I attempted to contact pt to give him the number for weight management, as they want to talk directly to the patient when scheduling initial appointment, and reached his VM. I LVM asking him to return my call. HAND ENGINEER documented in this encounter Plan of Treatment Not on filedocumented as of this encounter Visit Diagnoses Not on filedocumented in this encounter Care Teams Lime Vat Tender Relationship Specialty Start Date End Date Momo Forbes PCP - General Family Practice 01/02/14 [facility] [address] [place] [address] documented as of this encounter
--- OUTSIDE RECORDS SUMMARY | 2022-06-23 11:21 | XMS_ITS | Encounter Summary ---
:1950 Author Organization [place] Address [address] [place] [address] Care Team Providers Name Role Phone Momo Frobes Primary Care Provider Encounter Details Date Type Department Care Team Description 05/15/2018 Orders Only [facility] Loy Morales MD [facility] [address] 500 [place], [place] [address] [place] [address] [phone] Social History Tobacco Use Types Packs/Day Years [...] (ABNORMAL) Tacrolimus level (05/15/2018 2:13 PM CDT) [facility] Method Time Signature Tacrolimus Not Provided 05/18/2018 [facility] Last Dose 7:24 AM CDT [facility] Tacrolimus 3.4 (L) 5.0 - 05/18/2018 [facility] Level 15.0 ug/L 7:24 AM CDT [facility] Comment: Tacrolimus Reference [...] LAB - BLOOD ORDERABLES Performing Organization Address City/State/[facility] Phon e Number [address] Cyclosporine (05/15/2018 2:13 PM CDT) Component Value Ref Test Analysis Performed At [facility] gist Range Method Time Signature Cyclosporine CANCELLED BY 05/17/2018 [facility] Last Dose BOGDAN KOLB 1:00 PM CDT [facility] E[facility]VER ON [facility] 05/17/18 AT CAMPUS 1300 BY [place] Comment: CORRECTED ON 05/17 AT 1300: PRE VIOUSLY REPORTED [id number] Cyclosporine Level CANCELLED BY RN 50 - 400 05/17/2018 1:00 [facility] GLADWIN CORTES ug/L PM CDT [facility] ETC[facility]VER ON [facility] 05/17/18 AT 1300 BY [place] Comment: CORRECTED ON 05/17 AT 1300: PRE VIOUSLY REPORTED <25 Specimen Anatomical Collection Method Collection Time Receive d Time (Source) Location / / Volume Laterality 05/15/2018 2:13 PM 8 9:59 CDT AM CDT Orlando Richey MD LAB - BLOOD ORDERABLES Performing Organization Address City/[facility] Phon e Number [address] documented in this encounter Visit Diagnoses Not on filedocumented in this encounter Care Teams Hematology Technologist Relationship Specialty Start Date End Date Momo Forbes PCP - General Family Practice 01/02/14 [facility] [address] [place] [address] documented as of this encounter
--- OUTSIDE RECORDS SUMMARY | 2022-06-23 11:21 | XMS_ITS | Encounter Summary ---
:1950 Author Organization [place] Address [address] [place] [address] Care Team Providers Name Role Phone Momo Forbes Primary Care Provider Reason for Visit Reason Onset Date Comments Transplant 09/12/2017 Encounter Details Date Type Department Care Team Description 09/12/2017 Telephone [facility] Transplant Nazia Jacobson, Transplant Clinic RN [address] [place], [place] [phone] Social History Tobacco Use [...] updated standing lab order and faxed to [facility] lab. EMS PROGRAMMER ANALYST Telephone Encounter - Nazia Jacobson, RN - 09/12/2017 8:36 AM SYSTEMS PROGRAMMER ANALYST ISSUE: Hyperglycemia (blood sugar 300-600s w/ last 2 blood draws) Overdue for transplant labs GARDEN LABOURER TASK: Call Diego Guthrie and ask him who is managing his diabetes? Does he have an legal document specialist? He needs to have better blood sugar control, elevated blood sugars can cause damage to his kidney. Remind him that he should be getting transplant labs done monthly. (3 years out from kidney transplant) Send updated lab letter. EMS PROGRAMMER ANALYST documented in this encounter Plan of Treatment Not on filedocumented as of this encounter Visit Diagnoses Not on filedocumented in this encounter Care Teams Truck Rental Clerk Relationship Specialty Start Date End Date Momo Forbes PCP - General Family Practice 01/02/14 [facility] [address] [place] [address] documented as of this encounter
--- OUTSIDE RECORDS SUMMARY | 2022-06-23 11:22 | XMS_ITS | Encounter Summary ---
:1950 Author Organization [place] Address [address] [place] [address] Care Team Providers Name Role Phone Momo Forbes Primary Care Provider Encounter Details Date Type Department Care Team Description 10/25/2016 Orders Only [facility] Thrombocytopenia (H[facility] [address] [facility] [address] Aftercare following organ tr ansplant; 1st Floor Kidney replaced by transplan t; [place], [place] Encounter fo r long-term current use [...] Thrombocytopenia (H) Resu lts for this PM PHLEBOTOMY PROGRAM COORDINATOR procedure are i n the results section. BASIC METABOLIC Routine 10/25/2016 3:54 Aftercare following Re sults for this PANEL PM PHLEBOTOMY PROGRAM COORDINATOR organ transplant procedure are in Kidney replaced by the [facility] ts transplant section. Encounter for long-term current use of medication CBC WITH PLATELETS Routine 10/25/2016 3:54 Aftercare following Results for this PM PHLEBOTOMY PROGRAM COORDINATOR organ transplant procedure are in Kidney replaced by the [facility] ts transplant section. Encounter for long-term current use of medication PROTEIN RANDOM Routine 10/25/2016 3:52 Aftercare following Res ults for this URINE PM PHLEBOTOMY PROGRAM COORDINATOR organ transplant procedure are in Kidney replaced by the [facility] ts transplant section. Encounter for long-term current use of medication CREATININE URINE Routine 10/25/2016 3:52 Thrombocytopenia (H) Results for this CALCULATION ONLY PM PHLEBOTOMY PROGRAM COORDINATOR procedure a re in (LAB ONLY) the results section. documented in this encounter Results (ABNORMAL) Basic metabolic panel (10/25/2016 3:54 PM PHLEBOTOMY PROGRAM COORDINATOR) Patholo gist Method Time Signature Sodium 142 133 - 144 [facility] mmol/L [facility] Potassium 4.2 3.4 - 5.3 [facility] mmol/L [facility] Chloride 108 94 - 109 [facility] mmol/L [facility] Carbon Dioxide 28 20 - 32 [facility] mmol/L [facility] Anion Gap 7 3 - 14 [facility] mmol/L [facility] Glucose 120 (H) 70 - 99 [facility] mg/dL [facility] Urea Nitrogen 19 7 - 30 [facility] mg/dL [facility] Creatinine 1.39 (H) 0.66 - [facility] 1.25 mg/dL [facility] GFR Estimate 51 (L) >60 [facility] mL/min/1.7 [place] m2 [facility] Comment: Non GFR Calc GFR Estimate If Black 62 >60 mL/min/1.7m2 [facility] Comment: GFR Calc Calcium 9.4 8.5 - 10.1 mg/dL [facility] Specimen Anatomical Collection Method Collection Time Receive d Time (Source) Location / / Volume Laterality Blood specimen 10/25/2016 3:54 PM 017 3:55 (specimen) PHLEBOTOMY PROGRAM COORDINATOR PM PHLEBOTOMY PROGRAM COORDINATOR Chucho Joshi MD LAB - BLOOD ORDERABLES Performing Organization Address City/State/ZIP Code Phon e Number [address] [address] [facility] (ABNORMAL) CBC with platelets (10/25/2016 3:54 PM PHLEBOTOMY PROGRAM COORDINATOR) Analysis Performed At Patho logist Time Signature WBC 5.1 4.0 - 11.0 [facility] 10e9/L [facility] RBC Count 5.50 4.4 - 5.9 [facility] 10e12/L [facility] Hemoglobin 15.5 13.3 - [facility] 17.7 g/dL [facility] Hematocrit 46.0 40.0 - [facility] 53.0 % [facility] MCV 84 78 - 100 [facility] fl [facility] MCH 28.2 26.5 - [facility] 33.0 pg [facility] MCHC 33.7 31.5 - [facility] 36.5 g/dL [facility] RDW 14.1 10.0 - [facility] 15.0 % [facility] Platelet Count 124 (L) 150 - 450 [facility] 10e9/L [facility] Specimen Anatomical Collection Method Collection Time Receive d Time (Source) Location / / Volume Laterality Blood specimen 10/25/2016 3:54 PM 017 3:55 (specimen) PHLEBOTOMY PROGRAM COORDINATOR PM PHLEBOTOMY PROGRAM COORDINATOR Chucho Joshi MD LAB - BLOOD ORDERABLES Performing Organization Address City/[facility]/ZIP Code Phon e Number [address] [address] [facility] Folate RBC (10/25/2016 3:54 PM PHLEBOTOMY PROGRAM COORDINATOR) athologist Signature HCT Within 46.0 % [facility] Past 24h [facility] Folate RBC 663 ng/mL [facility] Comment: Reference range: >=366 (Note) Performed by [employer], [address] [place] [id number] [email or web address], Geoff Reed MD, Lab. Director Specimen Anatomical Collection Method Collection Time Receive d Time (Source) Location / / Volume Laterality Blood specimen 10/25/2016 3:54 PM 017 3:55 (specimen) PHLEBOTOMY PROGRAM COORDINATOR PM PHLEBOTOMY PROGRAM COORDINATOR Chucho Joshi MD LAB - BLOOD ORDERABLES Performing Organization Address City/State/ZIP Code Phon e Number [address] [address] [facility] Creatinine urine calculation only (10/25/2016 3:52 PM PHLEBOTOMY PROGRAM COORDINATOR) P athologist Signature Creatinine 152 mg/dL [facility] Specimen Anatomical Collection Method Collection Time Receive d Time (Source) Location / / Volume Laterality 10/25/2016 3:52 PM 7 4:12 PHLEBOTOMY PROGRAM COORDINATOR PM PHLEBOTOMY PROGRAM COORDINATOR Chucho Joshi MD LAB - URINE ORDERABLES Performing Organization Address City/State/ZIP Code Phon e Number M [facility] [address] [address] [phone] [facility] [address] [place] [address], [place] [phone] (ABNORMAL) Protein random urine (10/25/2016 3:52 PM PHLEBOTOMY PROGRAM COORDINATOR) Analysis Performed At Patho logist Time Signature Protein Random 0.48 g/L [place] Urine [facility] Protein Total 0.31 (H) 0 - 0.2 [place] Urine g/gr g/g Cr [facility] Specimen Anatomical Collection Method Collection Time Receive d Time (Source) Location / / Volume Laterality Urine specimen 10/25/2016 3:52 PM 017 4:12 (specimen) PHLEBOTOMY PROGRAM COORDINATOR PM PHLEBOTOMY PROGRAM COORDINATOR Chucho Joshi MD LAB - URINE ORDERABLES Performing Organization Address City/State/ZIP Code Phon e Number [facility] [address] [place] [address] [facility] [address] [address], [place] [phone] documented in this encounter Visit Diagnoses Diagnosis Thrombocytopenia (H) Thrombocytopenia, unspecified Aftercare following organ transplant Kidney replaced by transplant Encounter for long-term current use of m edication documented in this encounter Care Teams Croze Cutter Helper Relationship Specialty Start Date End Date Momo Forbes PCP - General Family Practice 01/02/14 [facility] [address] [place] [address] documented as of this encounter
--- OUTSIDE RECORDS SUMMARY | 2022-06-23 11:22 | XMS_ITS | Encounter Summary ---
:1950 Author Organization [place] Address [facility] [place] [address] Care Team Providers Name Role Phone Momo Forbes Primary Care Provider Reason for Visit Reason Onset Date Comments Transplant Pharmacy Medication Review 01/26/2017 Encounter Details Date Type Department Care Team Description 01/26/2017 Telephone [facility] Janes Rodriguez, Transplant Pharmacy [address] [facility] [place] [phone] Social History Tobacco Use Types Packs/Day Years [...] filedocumented in this encounter Care Teams Marketing Admin Relationship Specialty Start Date End Date Momo Forbes PCP - General Family Practice 01/02/14 [facility] [address] [place] [address] documented as of this encounter
--- OUTSIDE RECORDS SUMMARY | 2022-06-23 11:22 | XMS_ITS | Encounter Summary ---
:1950 Author Organization [place] Address [address] [place] [address] Care Team Providers Name Role Phone Momo Forbes Primary Care Provider Joseph Quintana MD Unavailable Encounter Details Date Type Department Care Team Description 08/18/2016 External Order Results [facility] Nurse, [facility] Transplant Clinic [address] [place] [address] Social History Tobacco Use Types [...] 08/09/2016 12:21 PM Results for this RESULTS VERIFYING MACHINE OPERATOR procedure are i n the results section. documented in this encounter Results (ABNORMAL) TXP External Lab Result (08/09/2016 12:21 PM VERIFYING MACHINE OPERATOR) Analysis Performed At Patho logist [...] / / Volume Laterality 08/09/2016 12:21 PM VERIFYING MACHINE OPERATOR Narrative [facility] - 08/18/2016 1:35 PM VERIFYING MACHINE OPERATOR Verified by Jessica Majro on 016. Patient Reported LABORATORY Performing Organization Address City/State/ZIP Code Phon e Number [facility] documented in this encounter Visit Diagnoses Not on filedocumented in this encounter Care Teams Chicken Buyer Relationship Specialty Start Date End Date Momo Forbes PCP - General Family Practice 01/02/14 [facility] [address] [place] [address] Joseph Quintana, Assigned Nephrology 03/29/21 MD Provider [address] [place] [address] [address] [place], [place] [id number] documented as of this encounter
--- OUTSIDE RECORDS SUMMARY | 2022-06-23 11:22 | XMS_ITS | Encounter Summary ---
:1950 Author Organization [place] Address [address] [place] [address] Care Team Providers Name Role Phone Forbes, Momo He Primary Care Provider Encounter Details Date Type Department Care Team Description 05/30/2017 Hospital Encounter [facility] Orlando Richey, [facility] [address] [address] [phone] (Wo rk) Social History Tobacco Use Types [...] on filedocumented in this encounter Care Teams Clearance Center Manager Relationship Specialty Start Date End Date Momo Forbes PCP - General Family Practice 01/02/14 [facility] [address] [place] [address] documented as of this encounter
--- OUTSIDE RECORDS SUMMARY | 2022-06-23 11:22 | XMS_ITS | Encounter Summary ---
:1950 Author Organization [place] Address [facility] [place] [address] Care Team Providers Name Role Phone Momo Forbes Primary Care Provider Reason for Visit Reason Onset Date Comments Refill Request 09/28/2016 Encounter Details Date Type Department Care Team Description 09/28/2016 Refill [facility] Anita Joshi MD Refill Request Nephrology Clinic [address] [place] [address] [place] [address] [phone] Social History Tobacco Use Types Packs/Day Years [...] 1:51 PM CST Last Office Visit with Cyber Software Engineer: March 2016. Medication refilled per Nephrology Clinic protocol. Janes Jauregui RN CAL SOCIOLOGIST documented in this encounter Plan of Treatment Not on filedocumented as of this encounter Visit Diagnoses Diagnosis Reactive depression - Primary Dysthymic disorder documented in this encounter Care Teams Tailor'S Aide Relationship Specialty Start Date End Date Momo Forbes PCP - General Family Practice 01/02/[address] [place] [address] documented as of this encounter
--- OUTSIDE RECORDS SUMMARY | 2022-06-23 11:22 | XMS_ITS | Encounter Summary ---
:1950 Author Organization [place] Address [address] [facility] [place] [address] Care Team Providers Name Role Phone Momo Forbes Primary Care Provider Reason for Visit Reason Onset Date Comments Pre Visit Planning - Unable To Reach 10/14/2016 Encounter Details Date Type Department Care Team Description 10/14/2016 Telephone [facility] Anita Joshi MD Pre Visit Planning - Nephrology Clinic [address] [place] [place] [address] [place] [facility] Reach [address] [address] [phone] Social History Tobacco Use Types Packs/Day Years Used Date Smoking Tobacco: Former Cigars Quit : 08/22/2006 Smokeless Tobacco: Never Alcohol Use Standard Drinks/Week Comments Yes 0 (1 standard drink = 0.6 oz pure alcoho l) occasional drink. Sex Assigned at Date Recorded Not on file documented as of this encounter Miscellaneous Notes Telephone Encounter - Monroe Zurita VICE PRESIDENT FINANCIAL - 10/14/2016 10:56 AM CST Ezekiel, this is office from Clinic 3[facility] at the [facility]. We are calling to remind you of your upcoming Nephrology appointment on 10/25/16 at 440pm. Please arrive about 1 hours prior to your appointment time for labs. Also, please bring an updated medication list or your labeled medication bottles with you to your appointment. If you have any questions or would like to cancel or reschedule your appointment, please call us at [phone]. You are welcome to have your labs done up to a week before your appointment at any [facility] or [facility] facility. If you have your labs completed before your appointment, please still come 30 minutes early for check-in MONROE ZURITA CMA ARTIST documented in this encounter Plan of Treatment Not on filedocumented as of this encounter Visit Diagnoses Not on filedocumented in this encounter Care Teams Milk House Worker Relationship Specialty Start Date End Date Momo Forbes PCP - General Family Practice 01/02/14 [facility] [address] [place] [address] documented as of this encounter
--- OUTSIDE RECORDS SUMMARY | 2022-06-23 11:22 | XMS_ITS | Encounter Summary ---
:1950 Author Organization [place] Address Counts include 234 beds at the [facility] [place] [address] Care Team Providers Name Role Phone Momo Forbes Primary Care Provider Reason for Visit Reason Onset Date Comments Transplant 05/26/2017 refill Encounter Details Date Type Department Care Team Description 05/26/2017 Refill [facility] Anita Joshi MD Transplant (refill) Nephrology Clinic [address] [place] [address] (Wo rk) [address] [phone] Social History Tobacco Use Types Packs/Day Years [...] transplant documented in this encounter Care Teams Dip Dyer Relationship Specialty Start Date End Date Momo Forbes PCP - General Family Practice 01/02/14 [facility] [address] [place] [address] documented as of this encounter
--- OUTSIDE RECORDS SUMMARY | 2022-06-23 11:22 | XMS_ITS | Encounter Summary ---
:1950 Author Organization [place] Address [address] [place] [address] Care Team Providers Name Role Phone Momo Forbes Primary Care Provider Joseph Quintana MD Unavailable Encounter Details Date Type Department Care Team Description 05/03/2016 External Order Results [facility] Nurse, [facility] Transplant Clinic 9 [place] [address] Social History Tobacco Use Types [...] on filedocumented in this encounter Care Teams Cellular Biologist Relationship Specialty Start Date End Date Momo Forbes PCP - General Family Practice 01/02/14 [facility] [address] [place] [address] Joseph Quintana, Assigned Nephrology 03/29/21 MD Provider 7 [facility] 353 [facility] [address] [place] [address] documented as of this encounter
--- OUTSIDE RECORDS SUMMARY | 2022-06-23 11:22 | XMS_ITS | Encounter Summary ---
:1950 Author Organization [place] Address [address] [place] [address] Care Team Providers Name Role Phone Momo Forbes Primary Care Provider Reason for Visit Reason Onset Date Comments Transplant 03/30/2016 refill Encounter Details Date Type Department Care Team Description 03/30/2016 Refill The Transplant Deysi Burns MD Transplant (refill) 2nd Floor, Clinic [id number] [place] [address] [facility] [place] [address] Social History Tobacco Use Types [...] Date: 02/19/16 Quantity: 240 Thanks!! Janelle Jackson [facility] documented in this encounter Plan of Treatment Not on filedocumented as of this encounter Visit Diagnoses Diagnosis Kidney transplanted - Primary Kidney replaced by transplant documented in this encounter Care Teams Director Heart Relationship Specialty Start Date End Date Momo Forbes PCP - General Family Practice 01/02/14 [facility] [address] [place] [address] documented as of this encounter
--- OUTSIDE RECORDS SUMMARY | 2022-06-23 11:22 | XMS_ITS | Encounter Summary ---
:1950 Author Organization [place] Address [address] [place] [address]. [place] [address] Care Team Providers Name Role Phone Momo Forbes Primary Care Provider Encounter Details Date Type Department Care Team Description 03/23/2017 Orders Only [facility] Rossi, Estefania [place] replaced by Nephrology Clinic transplant (Primary [address] Dx) [address] [place] [phone] Social History Tobacco Use Types Packs/Day Years [...] Primary documented in this encounter Care Teams Orthopedic Dentist Relationship Specialty Start Date End Date Momo Forbes PCP - General Family Practice 01/02/14 [facility] 1999 [place] [address] documented as of this encounter
--- OUTSIDE RECORDS SUMMARY | 2022-06-23 11:22 | XMS_ITS | Encounter Summary ---
:1950 Author Organization [place] Address [facility] [place] [address] Care Team Providers Name Role Phone Momo Forbes Primary Care Provider Reason for Visit Reason Comments RECHECK Kidney follow up Encounter Details Date Type Department Care Team Description 10/25/2016 Office Visit [facility] Anita Joshi MD Renal hypertension, Nephrology Clinic [address] [place] [address] 1-4 or [place] [address] unspecified chronic [address] [place], [place] [address] (Primary Dx) [address] [phone] Social History Tobacco Use Types Packs/Day Years [...] Comments Blood Pressure 168/83 10/25/2016 4:39 PM WEDDING MAKEUP ARTIST Pulse 55 10/25/2016 4:39 PM WEDDING MAKEUP ARTIST Temperature 36.8 ??C (98.3 ??F) 10/25/2016 4:39 PM WEDDING MAKEUP ARTIST Respiratory Rate 18 10/25/2016 4:39 PM WEDDING MAKEUP ARTIST Oxygen Saturation - - Inhaled Oxygen Concentration - - Weight 138.2 kg (304 lb 9.6 oz) 10/25/2016 4:39 PM WEDDING MAKEUP ARTIST Height 182.9 cm (6') 10/25/2016 4:39 PM WEDDING MAKEUP ARTIST Body Mass Index 41.31 10/25/2016 4:39 PM WEDDING MAKEUP ARTIST documented in this encounter Progress Notes Chucho [...] (304 lb 9.6 oz). Medication Reconciliation: complete ING MAKEUP ARTIST documented in this encounter Plan of Treatment Not on filedocumented as of this encounter Visit Diagnoses Diagnosis Renal hypertension, stage 1-4 or unspeci fied chronic kidney disease - Primary documented in this encounter Care Teams Rod Drawer Relationship Specialty Start Date End Date Momo Forbes PCP - General Family Practice 01/02/14 [facility] [address] [place] [address] documented as of this encounter
--- OUTSIDE RECORDS SUMMARY | 2022-06-23 11:22 | XMS_ITS | Encounter Summary ---
:1950 Author Organization [place] Address [facility] [place] [address] Care Team Providers Name Role Phone Momo Forbes Primary Care Provider Reason for Visit Reason Comments RECHECK 6 mo follow up,christiano cruz Encounter Details Date Type Department Care Team Description 04/20/2016 [facility] Renal hypertension, stage 1-4 or unspecified chronic kidney disease (Primary Dx); Nephrology Clinic Reactive depression; [address] Thrombocytopenia (H) 909 [facility] RANJAN [address] [place] [address] Social History Tobacco Use Types Packs/Day [...] Body Mass Index 41.55 09/02/2015 4:32 PM BICYCLE FITTER documented in this encounter Progress Notes Chucho [...] encounter Results Folate RBC (10/25/2016 3:54 PM BICYCLE FITTER) athologist Signature HCT Within 46.0 % [address] Folate RBC 663 ng/mL [facility] Comment: Reference range: >=366 (Note) Performed by [facility], [address] [place] [address] www.[facility], Geoff Reed MD, Lab. Director Specimen Anatomical Collection Method Collection Time Receive d Time (Source) Location / / Volume Laterality Blood specimen 10/25/2016 3:54 PM 017 3:55 (specimen) BICYCLE FITTER PM BICYCLE FITTER Chucho Joshi MD LAB - BLOOD ORDERABLES Performing Organization Address City/State/ZIP Code Phon e Number [address] [address] [facility] documented in this encounter Visit Diagnoses Diagnosis Renal hypertension, stage 1-4 or unspeci fied chronic kidney disease - Primary Reactive depression Dysthymic disorder Thrombocytopenia (H) Thrombocytopenia, unspecified documented in this encounter Care Teams Sintering Plant Supervisor Relationship Specialty Start Date End Date Momo Forbes PCP - General Family Practice 01/02/14 [facility] [address] [place] [address] documented as of this encounter
--- OUTSIDE RECORDS SUMMARY | 2022-06-23 11:22 | XMS_ITS | Encounter Summary ---
:1950 Author Organization [place] Address [facility] [place] [address] Care Team Providers Name Role Phone Momo Forbes Primary Care Provider Reason for Visit Reason Onset Date Comments Transplant 04/20/2016 refill Encounter Details Date Type Department Care Team Description 04/20/2016 Refill [facility] Joseph Quintana, Transplant (refill) Transplant Clinic [address] [place] [address] [phone] [place], [place] [phone] (Wo rk) Social History Tobacco Use Types [...] transplant documented in this encounter Care Teams Hotel Sales Manager Relationship Specialty Start Date End Date Momo Forbes PCP - General Family Practice 01/02/14 [facility] [address] [place] [address] documented as of this encounter
--- OUTSIDE RECORDS SUMMARY | 2022-06-23 11:22 | XMS_ITS | Encounter Summary ---
:1950 Author Organization [place] Address [address] [place] [address] Care Team Providers Name Role Phone Momo Forbes Primary Care Provider Reason for Visit Reason Onset Date Comments Transplant 05/10/2016 refill Encounter Details Date Type Department Care Team Description 05/10/2016 Refill The Transplant Chucho Perez MD Transplant (refill) 2nd Floor, Clinic [address] [place] [address] [facility] [place] [address] Social History Tobacco Use Types [...] send new rx Thank you Janelle Flowers [facility] [phone] documented in this encounter Plan of Treatment Not on filedocumented as of this encounter Visit Diagnoses Diagnosis Kidney transplanted - Primary Kidney replaced by transplant documented in this encounter Care Teams Ebd Special Education Teacher Relationship Specialty Start Date End Date Momo Forbes PCP - General Family Practice 01/02/14 [facility] [address] [place] [phone] documented as of this encounter
--- OUTSIDE RECORDS SUMMARY | 2022-06-23 11:22 | XMS_ITS | Encounter Summary ---
:1950 Author Organization [place] Address [address] [place] [address] Care Team Providers Name Role Phone Forbes, Momo He Primary Care Provider Reason for Visit Reason Onset Date Comments Transplant Immunosuppression Management 08/13/2016 Encounter Details Date Type Department Care Team Description 08/13/2016 Telephone [facility] Shiva Kahn Transp [facility] Transplant Clinic RN Immunosuppression [address] [place] [address] [phone] [place] [address] [place] [phone] Social History Tobacco Use Types Packs/Day Years [...] Patient will repeat labs in 1-2 weeks. ISTRY QUALITY CONTROL ANALYST Telephone Encounter - Shiva Kahn RN - 08/13/2016 7:42 AM CST Tacrolimus level 3.8 reported as 18-hour level. PLAN: Verify timing of labs tac dose and time of blood draw for tac level. Repeat tac level taking care to get a good 12-hour level (11-13 hours acceptable). TASK: Please call patient with questions and instructions per plan. ISTRY QUALITY CONTROL ANALYST documented in this encounter Plan of Treatment Not on filedocumented as of this encounter Visit Diagnoses Diagnosis Kidney replaced by transplant - Primary Aftercare following organ transplant Encounter for long-term current use of m edication documented in this encounter Care Teams Industrial Hygiene Manager Relationship Specialty Start Date End Date Momo Forbes PCP - General Family Practice 01/02/14 [facility] [address] [place] [address] documented as of this encounter
--- OUTSIDE RECORDS SUMMARY | 2022-06-23 11:22 | XMS_ITS | Encounter Summary ---
:1950 Author Organization [place] Address [facility] [place] [address] Care Team Providers Name Role Phone Momo Forbes Primary Care Provider Reason for Visit Reason Onset Date Comments Transplant 12/02/2016 refill Encounter Details Date Type Department Care Team Description 12/02/2016 Refill [facility] Anita Joshi MD Transplant (refill) Nephrology Clinic [address] [place] [address] (Wo rk) [address] [phone] Social History Tobacco Use Types Packs/Day Years [...] transplant documented in this encounter Care Teams Transformation Specialist Relationship Specialty Start Date End Date Momo Forbes PCP - General Family Practice 01/02/14 [facility] [address] [place] [address] documented as of this encounter
--- OUTSIDE RECORDS SUMMARY | 2022-06-23 11:22 | XMS_ITS | Encounter Summary ---
:1950 Author Organization [place] Address [address] [place] [address] Care Team Providers Name Role Phone Forbes, Ton Primary Care Provider Encounter Details Date Type Department Care Team Description 07/22/2016 Orders Only [facility], Joseph Conor isael, [facility] 500 [facility] [address] [place] [phone] [place] [address] [place] [address] (Wo rk) Social History Tobacco [...] Res ults for this MASS SPECTROMETRY PM ORNAMENTAL METAL WORKER APPRENTICE procedure are in the results section. documented in this encounter Results (ABNORMAL) Tacrolimus level (08/09/2016 12:15 PM ORNAMENTAL METAL WORKER APPRENTICE) [facility] Method Time Signature Tacrolimus Last 08/08/16 [facility] Dose [facility] Tacrolimus 3.8 (L) 5.0 - [facility] [...] its perform ance characteristics determined by the [facility] [...] / Volume Laterality 08/09/2016 12:15 08/11/2016 PM ORNAMENTAL METAL WORKER APPRENTICE 10:15 AM ORNAMENTAL METAL WORKER APPRENTICE Deysi Alicea MD LAB - BLOOD ORDERABLES Performing Organization Address City/State/ZIP Code Phon e Number [facility] [address] documented in this encounter Visit Diagnoses Not on filedocumented in this encounter Care Teams Plant Attendant Relationship Specialty Start Date End Date Momo Forbes PCP - General Family Practice 01/02/14 [facility] [address] [place] [phone] documented as of this encounter
--- OUTSIDE RECORDS SUMMARY | 2022-06-23 11:22 | XMS_ITS | Encounter Summary ---
:1950 Author Organization [place] Address [address] [place] [address] Care Team Providers Name Role Phone Momo Forbes Primary Care Provider Encounter Details Date Type Department Care Team Description 01/19/2017 Orders Only [facility] Loy Morales, Aft ercare following organ transplant; [facility] Kidney replaced by transplant; Laboratory [address] [facility] Encounter for long-term curr ent use of medication [address] [place] [address] [phone] (Wo rk) Social History Tobacco Use Types [...] Results Tacrolimus level (01/19/2017 9:25 AM CDT) [facility] Method Time Signature Tacrolimus Last 0800 [facility] Dose 01/19/17 [facility] Tacrolimus 6.5 5.0 - [facility] 15.0 ug/L [facility] [...] Address City/State/ZIP Code Phon e Number [address] [address], [facility] documented in this encounter Visit Diagnoses Diagnosis Aftercare following organ transplant Kidney replaced by transplant Encounter for long-term current use of m edication documented in this encounter Care Teams Training And Development Specialist Relationship Specialty Start Date End Date Momo Forbes PCP - General Family Practice 01/02/14 [facility] [address] [place] [address] documented as of this encounter
--- OUTSIDE RECORDS SUMMARY | 2022-06-23 11:23 | XMS_ITS | Encounter Summary ---
:1950 Author Organization [place] Address [facility] [place] [address] Care Team Providers Name Role Phone Momo Forbes Primary Care Provider Reason for Visit Reason Onset Date Comments Transplant 01/16/2016 refill Encounter Details Date Type Department Care Team Description 01/16/2016 Refill The Transplant Deysi Burns MD Transplant (refill) 2nd Floor, Clinic [address]A [address] [place] [address] [facility] [place] [address] Social History Tobacco Use Types [...] transplant documented in this encounter Care Teams Admissions Supervisor Relationship Specialty Start Date End Date Momo Forbes PCP - General Family Practice 01/02/14 [facility] [address] [place] [address] documented as of this encounter
--- OUTSIDE RECORDS SUMMARY | 2022-06-23 11:23 | XMS_ITS | Encounter Summary ---
:1950 Author Organization [place] Address [address] [place] [address] Care Team Providers Name Role Phone Ingrid Santana RN Unavailable Unavailable Momo Forbes Primary Care Provider Encounter Details Date Type Department Care Team Description 12/30/2014 Orders Only The Transplant Shiav Arias, RN -donor kidney 2nd Floor, Clinic 2A [facility] transplant recipient Tommy Guillermoteen 420 [facility] (Primary Dx) Building [address] [place] [address] [place] [address] Social History Tobacco Use Types [...] transplant documented in this encounter Care Teams Pick Up Worker Relationship Specialty Start Date End Date Momo Forbes PCP - General Family Practice 01/02/14 [facility] [address] [place] [phone] Ingrid Santana, RN Registered Nurse Transplant 02/10/12 documented as of this encounter
--- OUTSIDE RECORDS SUMMARY | 2022-06-23 11:23 | XMS_ITS | Encounter Summary ---
:1950 Author Organization [place] Address [address] [place] [address] Care Team Providers Name Role Phone Momo Forbes Primary Care Provider Joseph Quintana MD Unavailable Encounter Details Date Type Department Care Team Description 03/18/2016 External Order Results [facility] Nurse, [facility] Transplant Clinic 9 [place] [address] Social [...] External Lab Result (03/17/2016 10:45 AM CDT) [facility] Method Time Signature Sodium (External) 139 [...] / Volume Laterality 03/17/2016 10:45 AM CDT Narrative [facility] - 03/18/2016 7:35 AM CDT Verified by Tabitha Mora on 03/18/2016. Patient Reported LABORATORY Performing Organization Address City/State/ZIP Code Phon e Number [facility] documented in this encounter Visit Diagnoses Not on filedocumented in this encounter Care Teams Road Design Engineer Relationship Specialty Start Date End Date Momo Forbes PCP - General Family Practice 5/14/14 [facility] [address] [place] [address] Joseph Quintana, Assigned Nephrology 03/29/21 MD Provider [address] [place] [address] 1932 [place] [address] documented as of this encounter
--- OUTSIDE RECORDS SUMMARY | 2022-06-23 11:23 | XMS_ITS | Encounter Summary ---
:1950 Author Organization [place] Address [address] [place] [address] Care Team Providers Name Role Phone Ingrid Santana RN Unavailable Unavailable Momo Forbes Primary Care Provider Reason for Visit Reason Onset Date Comments Refill Request 09/06/2014 [facility] Encounter Details Date Type Department Care Team Description 09/06/2014 Refill The Transplant Deysi Burns, Refill Request ([facility]ok 2nd Floor, Clinic 2A [facility]) Tommy Wilburn [phone] [place] [address] [place] [address] Social History Tobacco Use Types [...] Fill Date: 02/08/14 Quantity: 100 Michael [facility] [phone] IC PHYSICS PROFESSOR documented in this encounter Plan of Treatment Not on filedocumented as of this encounter Visit Diagnoses Diagnosis S/P kidney transplant - Primary Kidney replaced by transplant documented in this encounter Care Teams Medical Coding Specialist Relationship Specialty Start Date End Date Momo Forbes PCP - General Family Practice 01/02/14 [place] [phone] Ingrid Santana, RN Registered Nurse Transplant 02/10/12 documented as of this encounter
--- OUTSIDE RECORDS SUMMARY | 2022-06-23 11:23 | XMS_ITS | Encounter Summary ---
:1950 Author Organization [place] Address [facility] [place] [address] Care Team Providers Name Role Phone Ingrid Santana RN Unavailable Unavailable Momo Forbes Primary Care Provider Encounter Details Date Type Department Care Team Description 10/04/2014 External Order Results The Transplant Ce nter Nurse, [facility] 2nd Floor, Clinic [address]A [address] [address] Social History Tobacco Use Types [...] 8:33 AM Results f or this RESULTS STREETCAR CONDUCTOR procedure are i n the results section. documented in this encounter Results (ABNORMAL) TXP External Lab Result (10/03/2014 8:33 [address] STREETCAR CONDUCTOR) Analysis Performed At Patho logist Time Signature [...] 57 (L) >60 LABDE SCAN (if ml/min/1.7 Lao) 3m2 (External) GFR Estimated 47 (L) >60 [...] / / Volume Laterality 10/03/2014 8:[address] STREETCAR CONDUCTOR Narrative [facility] - 10/04/2014 8:51 [address] STREETCAR CONDUCTOR Verified by Josseline Palma on 5. Patient Reported LABORATORY Performing Organization Address City/State/ZIP Code Phon e Number [facility] documented in this encounter Visit Diagnoses Not on filedocumented in this encounter Care Teams City Dispatch Supervisor Relationship Specialty Start Date End Date Momo Forbes PCP - General Family Practice 01/02/14 [facility] [address] [place] [address] Ingrid Santana, RN Registered Nurse Transplant 02/10/12 documented as of this encounter
--- OUTSIDE RECORDS SUMMARY | 2022-06-23 11:23 | XMS_ITS | Encounter Summary ---
:1950 Author Organization [place] Address [address] [place] [address] Care Team Providers Name Role Phone Ingrid Santana RN Unavailable Unavailable Momo Forbes Primary Care Provider Reason for Visit Reason Onset Date Comments Medication Question 10/11/2014 Encounter Details Date Type Department Care Team Description 10/11/2014 Telephone PHARMACY Beny Staton Geovanni Medication Question 500 [facility] [place] [address] PHARMACY [phone] [place] [address] Social History Tobacco Use Types [...] is 8 months post-transplant. Medication adherence plan: LatamLeapd pillbox Are you having any issues managing [...] activity before he checks it. Beny Staton [facility] Specialty Pharmacist [phone] TRONIC EQUIPMENT INSTALLER documented in this encounter Plan of Treatment Not on filedocumented as of this encounter Visit Diagnoses Not on filedocumented in this encounter Care Teams Sharepoint Application Developer Relationship Specialty Start Date End Date Momo Forbes PCP - General Family Practice 01/02/14 [place] [phone] Ingrid Santana, RN Registered Nurse Transplant 02/10/12 documented as of this encounter
--- OUTSIDE RECORDS SUMMARY | 2022-06-23 11:23 | XMS_ITS | Encounter Summary ---
:1950 Author Organization [place] Address [address] [place] [address] Care Team Providers Name Role Phone Ingrid Santana RN Unavailable Unavailable Momo Forbes Primary Care Provider Joseph Quintana MD Unavailable Encounter Details Date Type Department Care Team Description 08/28/2014 External Order Results The Transplant Ce nter Nurse, [facility] 2nd Floor, Clinic [address]A [address] [place] [address] Social History Tobacco Use Types [...] 08/26/2014 10:25 AM Results for this RESULTS SOUND TESTER procedure are i n the results section. documented in this encounter Results (ABNORMAL) TXP External Lab Result (08/26/2014 10:25 AM SOUND TESTER) Analysis Performed At Patho logist Time [...] 58 (L) >60 LABDE SCAN (if ml/min/1.7 Nigerien) 3m2 (External) GFR Estimated 48 (L) >60 [...] / / Volume Laterality 08/26/2014 10:25 AM SOUND TESTER Narrative [facility] - 08/28/2014 4:34 PM SOUND TESTER Verified by Freddy Mehta on 08/28. Patient Reported LABORATORY Performing Organization Address City/State/ZIP Code Phon e Number [facility] documented in this encounter Visit Diagnoses Not on filedocumented in this encounter Care Teams Bridal Sales Consultant Relationship Specialty Start Date End Date Momo Forbes PCP - General Family Practice 01/02/14 [facility] [address] [place] [address] Ingrid Santana, RN Registered Nurse Transplant 02/10/12 Joseph Quintana, Assigned Nephrology 03/29/21 MD Provider [facility] 1932 [place] [address] documented as of this encounter
--- OUTSIDE RECORDS SUMMARY | 2022-06-23 11:23 | XMS_ITS | Encounter Summary ---
:1950 Author Organization [place] Address [address] [place] [address] Care Team Providers Name Role Phone Ingrid Santana RN Unavailable Unavailable Momo Forbes Primary Care Provider Joseph Quintana MD Unavailable Encounter Details Date Type Department Care Team Description 11/07/2014 External Order Results The Transplant Ce nter Nurse, [facility] 2nd Floor, Clinic [address] [phone] Social History Tobacco Use Types [...] Estimated >60 >60 LABDE SCAN (if ml/min/1.7 Beninese) 3m2 (External) GFR Estimated 51 (L) >60 [...] filedocumented in this encounter Care Teams Director Group Sales Relationship Specialty Start Date End Date Momo Forbes PCP - General Family Practice 01/02/14 [place] [address] Ingrid Santana, RN Registered Nurse Transplant 02/10/12 Joseph Quintana, Assigned Nephrology 03/29/21 MD Provider [address] [place] [address] [phone] documented as of this encounter
--- OUTSIDE RECORDS SUMMARY | 2022-06-23 11:23 | XMS_ITS | Encounter Summary ---
:1950 Author Organization [place] Address [address] [place] [address] Care Team Providers Name Role Phone Ingrid Santana RN Unavailable Unavailable Momo Forbes Primary Care Provider Reason for Visit Reason Onset Date Comments Medication Question 01/17/2015 Encounter Details Date Type Department Care Team Description 01/17/2015 Telephone PHARMACY Beny Staton Geovanni Medication Question 500 [facility] [place] [address] PHARMACY [phone] [place] [address] Social History Tobacco Use Types [...] keep better tabs. His last to in [place] were good but that was 8 months ago. Beny Staton [facility] Specialty Pharmacist [phone] documented in this encounter Plan of Treatment Not on filedocumented as of this encounter Visit Diagnoses Not on filedocumented in this encounter Care Teams Tetryl Blender Operator Relationship Specialty Start Date End Date Momo Forbes PCP - General Family Practice 01/02/14 [facility] [address] [place] [address] Ingrid Santana, RN Registered Nurse Transplant 02/10/12 documented as of this encounter
--- OUTSIDE RECORDS SUMMARY | 2022-06-23 11:23 | XMS_ITS | Encounter Summary ---
:1950 Author Organization [place] Address [facility] [place] [address] Care Team Providers Name Role Phone Ingrid Santana RN Unavailable Unavailable Momo Forbes Primary Care Provider Encounter Details Date Type Department Care Team Description 10/18/2014 External Order Results The Transplant Ce nter Nurse, [facility] 2nd Floor, Clinic [address]A [address] [address] Social History Tobacco Use Types [...] 8:15 AM Results f or this RESULTS NURSE EXAMINER procedure are i n the results section. documented in this encounter Results (ABNORMAL) TXP External Lab Result (10/17/2014 8:15 AM NURSE EXAMINER) Analysis Performed At Patho logist Time Signature [...] 56 (L) >60 LABDE SCAN (if ml/min/1.7 East Timorese) 3m2 (External) GFR Estimated 46 (L) >60 [...] / / Volume Laterality 10/17/2014 8:15 AM NURSE EXAMINER Narrative JESSICA PFT - 10/18/2014 8:50 AM NURSE EXAMINER Verified by Maribel Plunkett on 10/18/19 15. Patient Reported LABORATORY Performing Organization Address City/State/ZIP Code Phon e Number [facility] LABDE SCAN documented in this encounter Visit Diagnoses Not on filedocumented in this encounter Care Teams House Carpenter Helper Relationship Specialty Start Date End Date Momo Forbes PCP - General Family Practice 01/02/14 [facility] [address] [place] [address] Ingrid Santana, RN Registered Nurse Transplant 02/10/12 documented as of this encounter
--- OUTSIDE RECORDS SUMMARY | 2022-06-23 11:23 | XMS_ITS | Encounter Summary ---
:1950 Author Organization [place] Address [address] [place] [address] Care Team Providers Name Role Phone Ingrid Santana RN Unavailable Unavailable Momo Forbes Primary Care Provider Encounter Details Date Type Department Care Team Description 09/22/2014 Orders Only [facility], [facility] [place] [address] [phone] [place] [address] 829 [place] [address] (Wo rk) Social History Tobacco [...] AM R esults for this MASS SPECTROMETRY CANDY COOKER HELPER procedure are in the results section. TACROLIMUS BY TANDEM Routine 10/03/2014 8:30 AM R esults for this MASS SPECTROMETRY CANDY COOKER HELPER procedure are in the results section. documented in this encounter Results Tacrolimus level (10/17/2014 8:15 AM CANDY COOKER HELPER) [facility] Method Time Signature Tacrolimus Last 2029 [facility] Dose 10/16/[address] [facility] Tacrolimus 9.2 5.0 - [facility] Level [...] its perform ance characteristics determined by the [facility], ??Special Chemistry Laboratory. It has [...] / Volume Laterality 10/17/2014 8:15 AM 5 CANDY COOKER HELPER 11:17 AM CANDY COOKER HELPER Mingo Dangelo MD LAB - BLOOD ORDERABLES Performing Organization Address City/State/ZIP Code Phon e Number [facility] 500 [place], [place] [phone] [place] [address] Tacrolimus level (10/03/2014 8:30 AM CANDY COOKER HELPER) [facility] Method Time Signature Tacrolimus Last 10/02/14 [facility] Dose [address] [facility] Tacrolimus 7.4 5.0 - [facility] 15.0 ug/L [facility] Comment: [...] its perform ance characteristics determined by the [facility], ??Special Chemistry Laboratory. It has [...] / Volume Laterality 10/03/2014 8:30 AM 5 CANDY COOKER HELPER 11:09 AM CANDY COOKER HELPER Mingo Dangelo MD LAB - BLOOD ORDERABLES Performing Organization Address City/State/ZIP Code Phon e Number [facility] [address] [place], [place] [phone] [place] [address] documented in this encounter Visit Diagnoses Not on filedocumented in this encounter Care Teams Tobacco Conditioner Relationship Specialty Start Date End Date Momo Forbes PCP - General Family Practice 01/02/14 [facility] [address] [place] [address] Ingrid Santana, RN Registered Nurse Transplant 02/10/12 documented as of this encounter
--- OUTSIDE RECORDS SUMMARY | 2022-06-23 11:23 | XMS_ITS | Encounter Summary ---
:1950 Author Organization [place] Address [address] [place] [address]. [place] [address] Care Team Providers Name Role Phone Momo Forbes Primary Care Provider Reason for Visit Reason Onset Date Comments Transplant 03/15/2016 refill Encounter Details Date Type Department Care Team Description 03/15/2016 Refill [facility] Cristy Chen LPN T ransplant (refill) Transplant Clinic [address] [place] [address] [phone] Social History Tobacco Use Types Packs/Day [...] transplant documented in this encounter Care Teams Wide Area Network Engineer Relationship Specialty Start Date End Date Momo Forbes PCP - General Family Practice 01/02/14 [facility] [address] [place] [address] documented as of this encounter
--- OUTSIDE RECORDS SUMMARY | 2022-06-23 11:23 | XMS_ITS | Encounter Summary ---
:1950 Author Organization [place] Address [facility] [place] [address] Care Team Providers Name Role Phone Ingrid Santana RN Unavailable Unavailable Momo Forbes Primary Care Provider Reason for Visit Reason Onset Date Comments Patient Reminder 08/28/2015 Encounter Details Date Type Department Care Team Description 08/28/2015 Telephone Nephrology Yesenia Clements LPN Patient Reminder 2nd Floor, Clinic 2A [place] [phone] Social History Tobacco Use Types Packs/Day [...] Patient confirmed and understood. Yesenia Clements CMA ENGINEER documented in this encounter Plan of Treatment Not on filedocumented as of this encounter Visit Diagnoses Not on filedocumented in this encounter Care Teams Funeral Arrangement Director Relationship Specialty Start Date End Date Momo Forbes PCP - General Family Practice 01/02/14 [facility] [address] [place] [address] Ingrid Santana, RN Registered Nurse Transplant 02/10/12 documented as of this encounter
--- OUTSIDE RECORDS SUMMARY | 2022-06-23 11:23 | XMS_ITS | Encounter Summary ---
:1950 Author Organization [place] Address [facility] [place] [address] Care Team Providers Name Role Phone Ingrid Santana RN Unavailable Unavailable Momo Forbes Primary Care Provider Reason for Visit Reason Onset Date Comments Refill Request 04/21/2015 crestor Encounter Details Date Type Department Care Team Description 04/21/2015 Refill [facility] [address] Refill Request Physicians Orestes Hernandez MD (crestor) [facility] Building [place] 4th Floor, Clinic 4B [address] [place] [phone] [place] [address] (Wo rk) [address] [phone] Social History Tobacco Use Types Packs/Day Years Used Date Smoking Tobacco: Former Cigars Quit : 08/22/2006 Smokeless Tobacco: Never Alcohol Use Standard Drinks/Week Comments Yes 0 (1 standard drink = 0.6 oz pure alcoho l) occasional drink. Sex Assigned at Date Recorded Not on file documented as of this encounter Miscellaneous Notes Telephone Encounter - Gayathri Orta S - 04/21/2015 1:29 PM CDT Crestor 10mg Last Written Prescription Date: 04/09/14 Last Fill Quantity: 30, # refills: 11 Last Office Visit with [facility] primary care provider: 05/14/14 CHOL 126 02/06/2014 HDL 35 02/06/2014 LDL 71 02/06/2014 TRIG 100 02/06/2014 CHOLHDLRATIO 3.6 02/06/2014 Gayathri Orta [facility] [address] [facility] [address] documented in this encounter Plan of Treatment Not on filedocumented as of this encounter Visit Diagnoses Diagnosis DM (diabetes mellitus), type 2 (H) - Ana ashley Type II or unspecified type diabetes aung litus without mention of complication, not stated as uncontrolled Other and unspecified hyperlipidemia documented in this encounter Care Teams Battery Builder Relationship Specialty Start Date End Date Momo Forbes PCP - General Family Practice 01/02/[address] [address] Ingrid Santana, RN Registered Nurse Transplant 02/10/12 documented as of this encounter
--- OUTSIDE RECORDS SUMMARY | 2022-06-23 11:23 | XMS_ITS | Encounter Summary ---
:1950 Author Organization [place] Address [facility] [place] [address] Care Team Providers Name Role Phone Momo Forbes Primary Care Provider Reason for Visit Reason Onset Date Comments Transplant Pharmacy Medication Review 02/05/2016 Encounter Details Date Type Department Care Team Description 02/05/2016 Telephone [facility] Nani Humphrey, [facility] Transplant Pharmacy 500 [facility] [place] [address] [place] [phone] 711 [place] [address] (Wo rk) Social History Tobacco Use Types [...] on filedocumented in this encounter Care Teams Ruffler Relationship Specialty Start Date End Date Momo Forbes PCP - General Family Practice 01/02/14 [facility] [address] [place] [address] documented as of this encounter
--- OUTSIDE RECORDS SUMMARY | 2022-06-23 11:23 | XMS_ITS | Encounter Summary ---
:1950 Author Organization [place] Address [address] [place] [address] Care Team Providers Name Role Phone Ingrid Santana RN Unavailable Unavailable Momo Forbes Primary Care Provider Encounter Details Date Type Department Care Team Description 10/20/2014 Orders Only [facility], Joseph Conor [facility], [facility] [place] [address] [phone] [place] [address] [address] [place] [address] (Wo rk) Social History Tobacco [...] Results Tacrolimus level (11/05/2014 8:29 AM CDT) [facility] Method Time Signature Tacrolimus Last 2029, [facility] Dose 11/04/14 [facility] Tacrolimus 7.7 5.0 - [facility] Level [...] its perform ance characteristics determined by the [facility], [...] Phon e Number [facility] [address] documented in this encounter Visit Diagnoses Not on filedocumented in this encounter Care Teams Superintendent Concrete Mixing Plant Relationship Specialty Start Date End Date Momo Forbes PCP - General Family Practice 01/02/14 [place] [phone] Ingrid Santana, RN Registered Nurse Transplant 02/10/12 documented as of this encounter
--- OUTSIDE RECORDS SUMMARY | 2022-06-23 11:23 | XMS_ITS | Encounter Summary ---
:1950 Author Organization [place] Address [facility] [place] [address] Care Team Providers Name Role Phone Momo Forbes Primary Care Provider Reason for Visit Reason Onset Date Comments Transplant 02/19/2016 refill Encounter Details Date Type Department Care Team Description 02/19/2016 Refill The Transplant Deysi Burns MD Transplant (refill) 2nd Floor, Clinic [address]A [address] [place] [address] [facility] [place] [address] Social History Tobacco Use Types [...] transplant documented in this encounter Care Teams Public Relations Counselor Relationship Specialty Start Date End Date Momo Forbes PCP - General Family Practice 01/02/14 [facility] [address] [place] [address] documented as of this encounter
--- OUTSIDE RECORDS SUMMARY | 2022-06-23 11:23 | XMS_ITS | Encounter Summary ---
:1950 Author Organization [place] Address [address] [place] [address] Care Team Providers Name Role Phone Ingrid Santana RN Unavailable Unavailable Momo Forbes Primary Care Provider Encounter Details Date Type Department Care Team Description 12/20/[address] [facility], [facility] [place] [address] [phone] [place] [address] 714 [place] [address] (Wo rk) Social History [...] Results Tacrolimus level (12/25/2014 9:45 AM CDT) [facility] Method Time Signature Tacrolimus Last 12/24/14 [facility] Dose 2130 [facility] Tacrolimus 9.5 5.0 - [facility] Level 15.0 ug/L [...] Phon e Number [facility] [address] documented in this encounter Visit Diagnoses Not on filedocumented in this encounter Care Teams Timber Rider Relationship Specialty Start Date End Date Momo Forbes PCP - General Family Practice 01/02/14 [place] [id number] Ingrid Santana, RN Registered Nurse Transplant 02/10/12 documented as of this encounter
--- OUTSIDE RECORDS SUMMARY | 2022-06-23 11:23 | XMS_ITS | Encounter Summary ---
:1950 Author Organization [place] Address [address] [place] [address] Care Team Providers Name Role Phone Ingrid Santana RN Unavailable Unavailable Momo Forbes Primary Care Provider Joseph Quintana MD Unavailable Encounter Details Date Type Department Care Team Description 08/14/2015 External Order Results The Transplant Ce nter Nurse, [facility] 2nd Floor, Clinic [address]A [address] [phone] Social History Tobacco Use Types [...] 4:41 PM Results f or this RESULTS DISPUTE SPECIALIST procedure are i n the results section. documented in this encounter Results (ABNORMAL) TXP External Lab Result (08/12/2015 4:41 PM DISPUTE SPECIALIST) Analysis Performed At Patho logist Time [...] 59 (L) >60 LABDE SCAN (if mL/min/1.7 Israeli) 3/m2 (External) GFR Estimated 48 (L) >60 [...] / / Volume Laterality 08/12/2015 4:41 PM DISPUTE SPECIALIST Narrative JESSICA PFT - 08/14/2015 9:25 AM DISPUTE SPECIALIST Verified by Freddy Mehta on 08/14. Patient Reported LABORATORY Performing Organization Address City/State/ZIP Code Phon e Number [facility] LABDE SCAN documented in this encounter Visit Diagnoses Not on filedocumented in this encounter Care Teams Hot Metal Charger Relationship Specialty Start Date End Date Momo Forbes PCP - General Family Practice 01/02/14 [facility] [address] [place] [address] Ingrid Santana, RN Registered Nurse Transplant 02/10/12 Joseph Quintana, Assigned Nephrology 03/29/21 MD Provider [address] [place] [address] [address] [place] [address] documented as of this encounter
--- OUTSIDE RECORDS SUMMARY | 2022-06-23 11:23 | XMS_ITS | Encounter Summary ---
:1950 Author Organization [place] Address [address] [place] [address] Care Team Providers Name Role Phone Ingrid Santana RN Unavailable Unavailable Momo Forbes Primary Care Provider Encounter Details Date Type Department Care Team Description 07/22/2015 Orders Only [facility] Dereck Dangelo MD [facility] Laborato ry 420 [facility] 195 500 [place], [place] [address] [place] [address] [phone] Social History Tobacco Use Types Packs/Day Years [...] PM R esults for this MASS SPECTROMETRY CARDROOM HAND procedure are in the results section. documented in this encounter Results Tacrolimus level (08/12/2015 4:35 PM CARDROOM HAND) [facility] Method Time Signature Tacrolimus Last 0700 [facility] Dose 08/12/15 [facility] Tacrolimus 5.3 5.0 - [facility] Level 15.0 ug/L [facility] Comment: Tacrolimus Reference Range Kidney Transplant [...] / / Volume Laterality 08/12/2015 4:35 PM 08/18/ 5 9:11 CARDROOM HAND AM CARDROOM HAND Mingo Dangelo MD LAB - BLOOD ORDERABLES Performing Organization Address City/State/ZIP Code Phon e Number [facility] [address] documented in this encounter Visit Diagnoses Not on filedocumented in this encounter Care Teams Budget Record Clerk Relationship Specialty Start Date End Date Momo Forbes PCP - General Family Practice 01/02/14 [facility] [address] [place] [address] Ingrid Santana, RN Registered Nurse Transplant 02/10/12 documented as of this encounter
--- OUTSIDE RECORDS SUMMARY | 2022-06-23 11:23 | XMS_ITS | Encounter Summary ---
:1950 Author Organization [place] Address [address] [place] [address]. [place] [address] Care Team Providers Name Role Phone Momo Forbes Primary Care Provider Reason for Visit Reason Onset Date Comments Transplant 02/06/2016 refill Encounter Details Date Type Department Care Team Description 02/06/2016 Refill [facility] Cristy Chen LPN T ransplant (refill) Transplant Clinic [address] [place] [address] [phone] Social History Tobacco Use Types Packs/Day [...] transplant documented in this encounter Care Teams Firer Kiln Relationship Specialty Start Date End Date Momo Forbes PCP - General Family Practice 01/02/14 [facility] [address] [place] [address] documented as of this encounter
--- OUTSIDE RECORDS SUMMARY | 2022-06-23 11:23 | XMS_ITS | Encounter Summary ---
:1950 Author Organization [place] Address [address] [place] [address] Care Team Providers Name Role Phone Ingrid Santana RN Unavailable Unavailable Momo Forbes Primary Care Provider Reason for Visit Reason Onset Date Comments Transplant 08/08/2014 immunosuppression ma neil Encounter Details Date Type Department Care Team Description 08/08/2014 Refill Nephrology Shiva Kahn, supervisor fabrication 2nd Floor, Clinic 2A [facility] (immunosuppression [place] [address] [place] [address] management) Building [address] [place] [address] [phone] Social History Tobacco Use Types Packs/Day Years [...] lower Prograf dose to 1.5mg BID. CAL PLANNER Telephone Encounter - Shiva Kahn RN - 08/08/2014 5:33 PM CST ISSUE: Tacrolimus level 9.0. New target tacrolimus levels 6-8 since patient is now 6 months post kidney transplant. PLAN: Decrease Prograf dose from 2 mg twice daily to 1.5 mg twice daily. TASK: Please call patient with instructions for dose change. 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
--- OUTSIDE RECORDS SUMMARY | 2022-06-23 11:23 | XMS_ITS | Encounter Summary ---
:1950 Author Organization [place] Address [facility] [place] [address] Care Team Providers Name Role Phone Ingrid Santana RN Unavailable Unavailable Momo Forbes Primary Care Provider Reason for Visit Reason Onset Date Comments Transplant 12/31/2014 Encounter Details Date Type Department Care Team Description 12/31/2014 Telephone [facility] Transplant Ankita Ordoñez Transplant Clinic [address] [place] [phone] Social History Tobacco Use Types [...] filedocumented in this encounter Care Teams Yarn Sizer Relationship Specialty Start Date End Date Momo Forbes PCP - General Family Practice 01/02/14 [facility] [address] [place] [address] Ingrid Santana RN Registered Nurse Transplant 02/10/12 documented as of this encounter
--- OUTSIDE RECORDS SUMMARY | 2022-06-23 11:23 | XMS_ITS | Encounter Summary ---
:1950 Author Organization [place] Address [facility] [place] [address] Care Team Providers Name Role Phone Momo Forbes Primary Care Provider Reason for Visit Reason Onset Date Comments Transplant 02/19/2016 refill Encounter Details Date Type Department Care Team Description 02/19/2016 Refill The Transplant Deysi Burns MD Transplant (refill) 2nd Floor, Clinic [address]A [address] [place] [address] [facility] [place] [address] Social History Tobacco Use Types [...] transplant documented in this encounter Care Teams Teletypist Relationship Specialty Start Date End Date Momo Forbes PCP - General Family Practice 01/02/14 [facility] [address] [place] [address] documented as of this encounter
--- OUTSIDE RECORDS SUMMARY | 2022-06-23 11:23 | XMS_ITS | Encounter Summary ---
:1950 Author Organization [place] Address [address] [place] [address] Care Team Providers Name Role Phone Forbes, Ton Primary Care Provider Encounter Details Date Type Department Care Team Description 02/20/2016 Orders Only [facility], Joseph Conor isael, [facility] 500 [facility] [address] [place] [phone] [place] [address] [place] [address] (Wo rk) Social History Tobacco [...] (ABNORMAL) Tacrolimus level (03/17/2016 10:44 AM CDT) [facility] Method Time Signature Tacrolimus Last 2100 [facility] Dose 03/16/16 [facility] Tacrolimus 4.2 (L) 5.0 - [facility] Level 15.0 ug/L [facility] Comment: Tacrolimus [...] Phon e Number [facility] [address] documented in this encounter Visit Diagnoses Not on filedocumented in this encounter Care Teams Order Runner Relationship Specialty Start Date End Date Momo Forbes PCP - General Family Practice 01/02/14 [facility] [address] [place] [phone] documented as of this encounter
--- OUTSIDE RECORDS SUMMARY | 2022-06-23 11:23 | XMS_ITS | Encounter Summary ---
:1950 Author Organization [place] Address [address] [place] [address] Care Team Providers Name Role Phone Ingrid Santana RN Unavailable Unavailable Momo Forbes Primary Care Provider Encounter Details Date Type Department Care Team Description 08/22/2014 Orders Only [facility], Joseph Conor [facility] jm [place] 500 [facility] [address] [place] [address] [phone] [place] [address] 075 [place] [address] (Wo rk) Social History Tobacco [...] Res ults for this MASS SPECTROMETRY AM ELECTRICAL INSTALLATION INSPECTOR procedure are in the results section. documented in this encounter Results Tacrolimus level (08/26/2014 10:21 AM ELECTRICAL INSTALLATION INSPECTOR) [facility] Method Time Signature Tacrolimus Last 08/25/14 [facility] Dose 2030 [facility] Tacrolimus 6.6 5.0 - [facility] Level 15.0 ug/L [facility] [...] its perform ance characteristics determined by the [facility], ??Special Chemistry Laboratory. It has not been cleared or approved by the FDA . The laboratory is regulated under CLIA as qualified to perform high-complexity testing. This test is used for clinical purposes. It should not be regarded as investigational or for research. Specimen Anatomical Collection Method Collection Time Receive d Time (Source) Location / / Volume Laterality 08/26/2014 10:21 08/28/2014 AM ELECTRICAL INSTALLATION INSPECTOR 11:34 AM ELECTRICAL INSTALLATION INSPECTOR Mingo Dangelo MD LAB - BLOOD ORDERABLES Performing Organization Address City/State/ZIP Code Phon e Number [facility] [address] documented in this encounter Visit Diagnoses Not on filedocumented in this encounter Care Teams Support Merchandiser Relationship Specialty Start Date End Date Momo Forbes PCP - General Family Practice 01/02/14 [facility] 1999 [place] [address] Ingrid Santana, RN Registered Nurse Transplant 02/10/12 documented as of this encounter
--- OUTSIDE RECORDS SUMMARY | 2022-06-23 11:23 | XMS_ITS | Encounter Summary ---
:1950 Author Organization [place] Address [address] [place] [address] Care Team Providers Name Role Phone Ingrid Santana RN Unavailable Unavailable Momo Forbes Primary Care Provider Joseph Quintana MD Unavailable Encounter Details Date Type Department Care Team Description 02/03/2015 External Order Results The Transplant Ce nter Nurse, [facility] 2nd Floor, Clinic [address] [phone] Social History Tobacco Use Types [...] External Lab Result (01/28/2015 8:56 AM CDT) [facility] Method Time Signature Sodium (External) 140 [...] Volume Laterality 01/28/2015 8:56 AM CDT Narrative [facility] - 02/03/2015 9:19 AM CDT Verified by Freddy Mehta on 02/03. Patient Reported LABORATORY Performing Organization Address City/State/ZIP Code Phon e Number [facility] LABDE SCAN documented in this encounter Visit Diagnoses Not on filedocumented in this encounter Care Teams Ironmolder Relationship Specialty Start Date End Date Momo Forbes PCP - General Family Practice 01/02/14 [facility] [address] [place] [address] Ingrid Santana, RN Registered Nurse Transplant 02/10/12 Joseph Quintana, Assigned Nephrology 03/29/21 MD Provider [address] [place] [address] [address] [place] [address] documented as of this encounter
--- OUTSIDE RECORDS SUMMARY | 2022-06-23 11:23 | XMS_ITS | Encounter Summary ---
:1950 Author Organization [place] Address [facility] [place] [address] Care Team Providers Name Role Phone Ingrid Santana RN Unavailable Unavailable Momo Forbes Primary Care Provider Reason for Visit Reason Onset Date Comments Refill Request 06/23/2015 amlodipine Encounter Details Date Type Department Care Team Description 06/23/2015 Refill [facility] [address] Refill Request Physicians Orestes Hernandez MD (amlodipine) [facility] Building [place] 4th Floor, Clinic 4B [address] [phone] (Wo rk) [address] [phone] Social History Tobacco Use Types Packs/Day Years [...] # refills: 3 Last Office Visit with [facility] primary care provider: 05/14/2014 Future Office Visit: BP Readings from Last 3 Encounters: 05/14/14 141/65 05/13/14 139/73 04/09/14 163/78 [facility] [phone] SKEIN WINDER documented in this encounter Plan of Treatment Not on filedocumented as of this encounter Visit Diagnoses Diagnosis HTN (hypertension) - Primary Unspecified essential hypertension documented in this encounter Care Teams Cap And Stud Machine Operator Relationship Specialty Start Date End Date Momo Forbes PCP - General Family Practice 01/02/[address] [address] Ingrid Santana, RN Registered Nurse Transplant 02/10/12 documented as of this encounter
--- OUTSIDE RECORDS SUMMARY | 2022-06-23 11:23 | XMS_ITS | Encounter Summary ---
:1950 Author Organization [place] Address [facility] [place] [address] Care Team Providers Name Role Phone Ingrid Santana RN Unavailable Unavailable Momo Forbes Primary Care Provider Encounter Details Date Type Department Care Team Description 12/27/2014 External Order Results The Transplant Ce nter Nurse, [facility] 2nd Floor, Clinic [address]A [address] [address] Social History Tobacco Use [...] External Lab Result (12/25/2014 9:48 AM CDT) [facility] Method Time Signature Sodium 138 135 [...] 51 (L) >60 LABDE SCAN (if ml/min/1. Kosovan) 73m2 (External) GFR Estimated 42 (L) >60 [...] on filedocumented in this encounter Care Teams Dietitian Teacher Relationship Specialty Start Date End Date Momo Forbes PCP - General Family Practice 01/02/14 [facility] [address] [place] [address] Ingrid Santana, RN Registered Nurse Transplant 02/10/12 documented as of this encounter
--- OUTSIDE RECORDS SUMMARY | 2022-06-23 11:23 | XMS_ITS | Encounter Summary ---
:1950 Author Organization [place] Address [facility]0 [facility] [place] [address] Care Team Providers Name Role Phone Ingrid Santana RN Unavailable Unavailable Momo Forbes Primary Care Provider Reason for Referral Consultation - Closed Specialty Diagnoses / Procedures Referred By Contact Refer red To Contact Diagnoses Morbid obesity due to excess calories (H) Deysi Alicea MD [facility] [address] [place] [address] Referral ID Status Reason Start Date Expiration Date Visits Requ ested Visits Authorized [id number] Closed 09/02/2015 09/01/2016 1 1 SEAT SANDER Reason for Visit Reason Comments RECHECK Follow up Kidney TX 4 Encounter Details Date Type Department Care Team Description 09/02/2015 Office Visit Nephrology Deysi Alicea, S/P kidney transplant (Prima ry Dx); 2nd Floor, Clinic 2A Morbid obesity due to excess calories (H ) Tommy Wilburn [address] [place] [id number] [place] [address] (Wo rk) [address] [phone] Social History Tobacco Use Types Packs/Day Years [...] Comments Blood Pressure 128/72 09/02/2015 4:32 PM HEEL SEAT SANDER Pulse 61 09/02/2015 4:32 PM HEEL SEAT SANDER Temperature 36.7 ??C (98 ??F) 09/02/2015 4:32 PM HEEL SEAT SANDER Respiratory Rate - - Oxygen Saturation 94% 09/02/2015 4:32 PM HEEL SEAT SANDER Inhaled Oxygen Concentration - - Weight 141.8 kg (312 lb 9.6 oz) 09/02/2015 4:32 PM HEEL SEAT SANDER Height 182.9 cm (6' 0.01) 09/02/2015 4:32 PM HEEL SEAT SANDER Body Mass Index 42.39 09/02/2015 4:32 PM HEEL SEAT SANDER documented in this encounter Progress Notes Deysi [...] discharged on Cumadin; Cumadin was stopped by junior buyer during the follow up visit, as he [...] Years of Education: 14 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 BP completed using cuff size: large SEAT SANDER documented in this encounter Plan of [...] ) documented in this encounter Care Teams Agribusiness Professor Relationship Specialty Start Date End Date Momo Forbes PCP - General Family Practice 01/02/14 [facility] [address] [place] [address] Ingrid Santana, RN Registered Nurse Transplant 02/10/12 documented as of this encounter
--- OUTSIDE RECORDS SUMMARY | 2022-06-23 11:23 | XMS_ITS | Encounter Summary ---
:1950 Author Organization [place] Address [address] [place] [address] Care Team Providers Name Role Phone Ingrid Santana RN Unavailable Unavailable Momo Forbes Primary Care Provider Reason for Visit Reason Onset Date Comments Medication Question 09/12/2014 Encounter Details Date Type Department Care Team Description 09/12/2014 Telephone PHARMACY Beny Staton Geovanni Medication Question 500 [facility] [place] [address] PHARMACY [phone] [place] [address] Social History Tobacco Use Types [...] his dr told himhis bp was good. CUTTER documented in this encounter Plan of Treatment Not on filedocumented as of this encounter Visit Diagnoses Not on filedocumented in this encounter Care Teams Marketing Automation Analyst Relationship Specialty Start Date End Date Momo Forbes PCP - General Family Practice 01/02/14 [facility] [address] [place] [address] Ingrid Santana, RN Registered Nurse Transplant 02/10/12 documented as of this encounter
--- OUTSIDE RECORDS SUMMARY | 2022-06-23 11:23 | XMS_ITS | Encounter Summary ---
:1950 Author Organization [place] Address [address] [place] [address]. [place] [address] Care Team Providers Name Role Phone Ingrid Santana RN Unavailable Unavailable Momo Forbes Primary Care Provider Encounter Details Date Type Department Care Team Description 08/29/2015 Orders Only The Transplant Deepa Morgan Aftercare following organ tr ansplant (Primary Dx); 2nd Floor, Clinic 2A Saima Kidney replaced by transplan t; [facility] of [facility] [address] [phone] Social History Tobacco Use Types Packs/Day Years [...] edication documented in this encounter Care Teams Vice President Payer Relationship Specialty Start Date End Date Momo Forbes PCP - General Family Practice 01/02/14 [facility] [address] [place] [address] Ingrid Santana RN Registered Nurse Transplant 02/10/12 documented as of this encounter
--- OUTSIDE RECORDS SUMMARY | 2022-06-23 11:23 | XMS_ITS | Encounter Summary ---
:1950 Author Organization [place] Address [address] [place] [address] Care Team Providers Name Role Phone Ingrid Santana RN Unavailable Unavailable Momo Forbes Primary Care Provider Reason for Visit Reason Onset Date Comments Refill Request 02/10/2015 mycophenolate, smz/t mp Encounter Details Date Type Department Care Team Description 02/10/2015 Refill The Transplant Deysi Burns, Refill Request 2nd Floor, Clinic 2A MD (mycophenolate, Sanders Wangensteen [facility] smz/tmp) Building [address] [place] [id number] [place] [address] [place] [address] Social History Tobacco Use Types Packs/Day Years Used Date Smoking Tobacco: Former Cigars Quit : 08/22/2006 Smokeless Tobacco: Never Alcohol Use Standard Drinks/Week Comments Yes 0 (1 standard drink = 0.6 oz pure alcoho l) occasional drink. Sex Assigned at Date Recorded Not on file documented as of this encounter Miscellaneous Notes Telephone Encounter - Gayathri Orta S - 02/10/2015 1:44 PM CDT Mycophenolate 250mg Last Fill Date: 01/09/15 Last Fill Quantity: 240 [id number] Last Fill Date: 01/09/15 Last Fill Quantity: 31 Gayathri Orta [facility] [address] [facility] [address] documented in this encounter Plan of Treatment Not on filedocumented as of this encounter Visit Diagnoses Diagnosis S/P kidney transplant - Primary Kidney replaced by transplant documented in this encounter Care Teams Industrial Seamstress Relationship Specialty Start Date End Date Momo Forbes PCP - General Family Practice 01/02/[address] [address] Ingrid Santana, RN Registered Nurse Transplant 02/10/12 documented as of this encounter
--- OUTSIDE RECORDS SUMMARY | 2022-06-23 11:24 | XMS_ITS | Encounter Summary ---
:1950 Author Organization [place] Address [address] [place] [address] Care Team Providers Name Role Phone Ingrid Santana RN Unavailable Unavailable Momo Forbes Primary Care Provider Joseph Quintana MD Unavailable Encounter Details Date Type Department Care Team Description 06/24/2014 External Order Results The Transplant Ce nter Nurse, [facility] 2nd Floor, Clinic [address]A [address] [place] [address] Social History Tobacco Use Types [...] 8:37 AM Results f or this RESULTS SUPERVISOR ELECTRONIC COILS procedure are i n the results section. documented in this encounter Results (ABNORMAL) TXP External Lab Result (06/24/2014 8:37 AM SUPERVISOR ELECTRONIC COILS) Analysis Performed At Patho logist Time Signature [...] 54 (L) >60 LABDE SCAN (if ml/min/1.7 Pry[place]ig) 3m2 (External) GFR Estimated 44 (L) >60 [...] / / Volume Laterality 06/24/2014 8:37 AM SUPERVISOR ELECTRONIC COILS Narrative [facility] - 06/24/2014 2:52 PM SUPERVISOR ELECTRONIC COILS Verified by Sofie Verdin on 4. Patient Reported LABORATORY Performing Organization Address City/State/ZIP Code Phon e Number [facility] LABDE SCAN documented in this encounter Visit Diagnoses Not on filedocumented in this encounter Care Teams Nurse Administrator Relationship Specialty Start Date End Date Momo Forbes PCP - General Family Practice 01/02/14 [place] [id number] Ingrid Santana, RN Registered Nurse Transplant 02/10/12 Joseph Quintana, Assigned Nephrology 03/29/21 MD Provider [address] [place] [id number] documented as of this encounter
--- OUTSIDE RECORDS SUMMARY | 2022-06-23 11:24 | XMS_ITS | Encounter Summary ---
:1950 Author Organization [place] Address [facility]0 [facility] [place] [address] Care Team Providers Name Role Phone Ingrid Santana RN Unavailable Unavailable Momo Forbes Primary Care Provider Encounter Details Date Type Department Care Team Description 05/10/2014 Orders Only Nephrology Shiva Kahn RN -donor kidney 2nd Floor, Clinic 2A [facility] transplant recipient Tommy Ruizfelisa [address] [place] [address] (Primary Dx) Building [address] [place] [phone] Social History Tobacco Use Types Packs/Day Years [...] transplant documented in this encounter Care Teams Appliances Sample Maker Relationship Specialty Start Date End Date Momo Forbes PCP - General Family Practice 01/02/[address] [address] Ingrid Santana RN Registered Nurse Transplant 02/10/12 documented as of this encounter
--- OUTSIDE RECORDS SUMMARY | 2022-06-23 11:24 | XMS_ITS | Encounter Summary ---
:1950 Author Organization [place] Address [facility] [place] [address] Care Team Providers Name Role Phone Ingrid Santana RN Unavailable Unavailable Momo Forbes Primary Care Provider Reason for Visit Reason Onset Date Comments Pre Visit Planning - Done 05/13/2014 6 week f/u pos t op afib. medication changes last visit. Encounter Details Date Type Department Care Team Description 05/13/2014 PRE VISIT [facility] [address] Pre Visit Planning - Physicians Orestes Hernandez MD Done (6 week f/u post [facility] op afib. medication Building [place] changes last visit. ) 4th Floor, Clinic 4B [address] [phone] (Wo rk) [address] [phone] Social History Tobacco Use Types Packs/Day Years [...] on filedocumented in this encounter Care Teams Spinning Frame Changer Relationship Specialty Start Date End Date Momo Forbes PCP - General Family Practice 01/02/[address] [address] Ingrid Santana, RN Registered Nurse Transplant 02/10/12 documented as of this encounter
--- OUTSIDE RECORDS SUMMARY | 2022-06-23 11:24 | XMS_ITS | Encounter Summary ---
:1950 Author Organization [place] Address [facility] [place] [address] Care Team Providers Name Role Phone Ingrid Santana RN Unavailable Unavailable Momo Forbes Primary Care Provider Reason for Visit Reason Onset Date Comments Transplant 06/20/2014 FK 6.6 Encounter Details Date Type Department Care Team Description 06/20/2014 Telephone Nephrology Carmelita Rosario, Transplant (FK 6.6) 2nd Floor, Clinic 2A [place] [phone] Social History Tobacco Use Types Packs/Day [...] lab stage. Telephone Encounter - Carmelita Rosario, RN - 06/20/2014 7:36 AM CDT FK [...] documented in this encounter Care Teams Golf Tournament Consultant Relationship Specialty Start Date End Date Momo Forbes PCP - General Family Practice 01/02/[address] [address] Ingrid Santana, RN Registered Nurse Transplant 02/10/12 documented as of this encounter
--- OUTSIDE RECORDS SUMMARY | 2022-06-23 11:24 | XMS_ITS | Encounter Summary ---
:1950 Author Organization [place] Address [address] [place] [address] Care Team Providers Name Role Phone Ingrid Santana RN Unavailable Unavailable Momo Forbes Primary Care Provider Encounter Details Date Type Department Care Team Description 05/22/[address] [facility], Joseph Conor [facility], [facility] jm [place] [address] [phone] [place] [address] 205 [place] [address] (Wo rk) Social History Tobacco [...] Results Tacrolimus level (06/17/2014 8:05 AM CDT) [facility] gist Method Time Signature Tacrolimus Last 06/16/14 [facility] Dose 2000 [facility] Tacrolimus 6.5 5.0 - [facility] Level 15.0 ug/L [facility] Comment: Tacrolimus Reference Range [...] e Number [facility] 500 [place] [address] [facility] Tacrolimus level (06/10/2014 7:52 AM CDT) [facility] gist Method Time Signature Tacrolimus Last 1999 [facility] Dose 06/09/14 [facility] LABS Tacrolimus 7.9 [...] e Number [facility] 500 [place] [address] [facility] Tacrolimus level (06/05/2014 8:28 AM CDT) [facility] gist Method Time Signature Tacrolimus Last 1999 [facility] Dose 06/04/14 [facility] LABS Tacrolimus 7.9 [...] AM 4 CDT 11:23 AM CDT Mingo Matas MD LAB - BLOOD ORDERABLES Performing Organization Address City/[facility]/ZIP Code Phon e Number [facility] [address] LABS Tacrolimus level (05/24/2014 8:05 AM CDT) [facility] gist Method Time Signature Tacrolimus 05/23/14 [facility] Last Dose 20:00 [facility] LABS Tacrolimus Test 5.0 - [facility] Level canceled - 15.0 ug/L [facility] Lab order [facility] LABS entry error Specimen Anatomical Collection Method Collection Time Receive d Time (Source) Location / / Volume Laterality 05/24/2014 8:05 AM 4 2:49 CDT PM CDT Deysi Alicea MD LAB - BLOOD ORDERABLES Performing Organization Address City/[facility]/ZIP Code Phon e Number [facility] [address] LABS Tacrolimus level (05/24/2014 8:05 AM CDT) [facility] gist Method Time Signature Tacrolimus Last 05/23/14 [facility] Dose 20:00 [facility] LABS Tacrolimus 5.8 5.0 - [facility] Level 15.0 ug/L ST. [...] e Number [facility] [address] LABS documented in this encounter Visit Diagnoses Not on filedocumented in this encounter Care Teams Property Appraiser Relationship Specialty Start Date End Date Momo Forbes PCP - General Family Practice 01/02/14 [facility] 1999 [place] [address] Ingrid Santana, RN Registered Nurse Transplant 02/10/12 documented as of this encounter
--- OUTSIDE RECORDS SUMMARY | 2022-06-23 11:24 | XMS_ITS | Encounter Summary ---
:1950 Author Organization [place] Address [facility] [place] [address] Care Team Providers Name Role Phone Ingrid Santana RN Unavailable Unavailable Momo Forbes Primary Care Provider Encounter Details Date Type Department Care Team Description 05/27/2014 Orders Only Nephrology Shiva Kahn RN -donor kidney 2nd Floor, Clinic 2A [facility] transplant recipient Tommy Ruizfelisa [address] [place] [phone] Social History Tobacco Use Types Packs/Day Years [...] documented in this encounter Care Teams Tin Pourer Relationship Specialty Start Date End Date Momo Forbes PCP - General Family Practice 01/02/[address] [address] Ingrid Santana RN Registered Nurse Transplant 02/10/12 documented as of this encounter
--- OUTSIDE RECORDS SUMMARY | 2022-06-23 11:24 | XMS_ITS | Encounter Summary ---
:1950 Author Organization [place] Address [facility] [place] [address] Care Team Providers Name Role Phone Ingrid Santana RN Unavailable Unavailable Momo Forbes Primary Care Provider Reason for Visit Reason Comments RECHECK 3 month Tx follow Up Encounter Details Date Type Department Care Team Description 05/13/2014 Office Visit Nephrology Deysi Alicea, DM (diabetes mellitus), type 2 (H) (Primary Dx); 2nd Floor, Clinic 2A MD S/P kidney transplant Tommy Wilburn [address] [place] [address] (Wo rk) [address] [phone] Social History Tobacco Use Types Packs/Day Years [...] discharged on Cumadin; Cumadin was stopped by specifications checker during the follow up visit, as he [...] of Education: 14 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
--- OUTSIDE RECORDS SUMMARY | 2022-06-23 11:24 | XMS_ITS | Encounter Summary ---
:1950 Author Organization [place] Address [address] [place] [address] Care Team Providers Name Role Phone Ingrid Santana RN Unavailable Unavailable Momo Forbes Primary Care Provider Joseph Quintana MD Unavailable Encounter Details Date Type Department Care Team Description 06/08/2014 External Order Results The Transplant Ce nter Nurse, [facility] 2nd Floor, Clinic [address]A [address] [place] [address] Social History Tobacco Use Types [...] External Lab Result (06/05/2014 8:30 AM CDT) [facility] Method Time Signature Sodium (External) 138 135 [...] on filedocumented in this encounter Care Teams Drapery Sewer Hand Relationship Specialty Start Date End Date Momo Forbes PCP - General Family Practice 01/02/14 [facility] [address] [place] [address] Ingrid Santana, RN Registered Nurse Transplant 02/10/12 Joseph Quintana, Assigned Nephrology 03/29/21 MD Provider [address] [place] [address] 1932 [place] [address] documented as of this encounter
--- OUTSIDE RECORDS SUMMARY | 2022-06-23 11:24 | XMS_ITS | Encounter Summary ---
:1950 Author Organization [place] Address [facility]0 [facility] [place] [address] Care Team Providers Name Role Phone Ingrid Santana RN Unavailable Unavailable Momo Forbes Primary Care Provider Encounter Details Date Type Department Care Team Description 08/03/2014 Abstract The Transplant [facility] 2nd Floor, Clinic [address] [phone] Social History Tobacco Use [...] filedocumented in this encounter Care Teams Group Supervisor Yard Relationship Specialty Start Date End Date Momo Forbes PCP - General Family Practice 01/02/14 [facility] [address] [place] [address] Ingrid Santana, RN Registered Nurse Transplant 02/10/12 documented as of this encounter
--- OUTSIDE RECORDS SUMMARY | 2022-06-23 11:24 | XMS_ITS | Encounter Summary ---
:1950 Author Organization [place] Address [address] [place] [address] Care Team Providers Name Role Phone Ingrid Santana RN Unavailable Unavailable Momo Forbes Primary Care Provider Joseph Quintana MD Unavailable Encounter Details Date Type Department Care Team Description 07/31/2014 External Order Results The Transplant Ce nter Nurse, [facility] 2nd Floor, Clinic [address] [address] Social History Tobacco Use Types [...] 8:25 AM Results f or this RESULTS OIL CHANGER procedure are i n the results section. documented in this encounter Results (ABNORMAL) TXP External Lab Result (07/29/2014 8:25 AM OIL CHANGER) [facility] Method Time Signature Sodium (External) 138 [...] / / Volume Laterality 07/29/2014 8:25 AM OIL CHANGER Narrative [facility] - 07/31/2014 2:47 PM OIL CHANGER Verified by Nazia Duncan on 07/31/2014. Verified by Freddy Mehta on 07/31. Patient Reported LABORATORY Performing Organization Address City/State/ZIP Code Phon e Number [facility] LABDE SCAN documented in this encounter Visit Diagnoses Not on filedocumented in this encounter Care Teams Central Office Technician Relationship Specialty Start Date End Date Momo Forbes PCP - General Family Practice 01/02/14 [facility] [address] [place] [address] Ingrid Santana, RN Registered Nurse Transplant 02/10/12 Joseph Quintana, Assigned Nephrology 03/29/21 MD Provider [address] [place] [address] [address] [place], [place] [address] documented as of this encounter
--- OUTSIDE RECORDS SUMMARY | 2022-06-23 11:24 | XMS_ITS | Encounter Summary ---
:1950 Author Organization [place] Address [facility] [place] [address] Care Team Providers Name Role Phone Ingrid Santana RN Unavailable Unavailable Momo Forbes Primary Care Provider Encounter Details Date Type Department Care Team Description 06/07/2014 External Order Results The Transplant Ce nter Nurse, [facility] 2nd Floor, Clinic [address]A [address] [phone] Social History Tobacco Use Types [...] External Lab Result (06/05/2014 8:30 AM CDT) [facility] Method Time Signature Sodium (External) 138 [...] on filedocumented in this encounter Care Teams Purse Seining Hand Relationship Specialty Start Date End Date Momo Forbes PCP - General Family Practice 01/02/14 [facility] [address] [place] [address] Ingrid Santana, RN Registered Nurse Transplant 02/10/12 2 documented as of this encounter
--- OUTSIDE RECORDS SUMMARY | 2022-06-23 11:24 | XMS_ITS | Encounter Summary ---
:1950 Author Organization [place] Address [facility] [place] [address] Care Team Providers Name Role Phone Ingrid Santana RN Unavailable Unavailable Momo Forbes Primary Care Provider Reason for Visit Reason Comments Heart Problem 6 week F/U Encounter Details Date Type Department Care Team Description 05/14/2014 [facility] [place] [facility] Kei Hernandez, shanon carey (Primary Heart MD Dx) [facility] [place] 4th Floor, Clinic 4B [address] [facility] [address] [phone] [place] (Work) [address] [phone] Social History Tobacco Use Types Packs/Day Years [...] questions or concerns. 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 documented in this encounter Plan of Treatment Not on filedocumented as of this encounter Visit Diagnoses Diagnosis Unspecified essential hypertension - Ana ramirez documented in this encounter Care Teams High School Industrial Arts Teacher Relationship Specialty Start Date End Date Momo Forbes PCP - General Family Practice 01/02/14 [place] [id number] Ingrid Santana, RN Registered Nurse Transplant 02/10/12 documented as of this encounter
--- OUTSIDE RECORDS SUMMARY | 2022-06-23 11:24 | XMS_ITS | Encounter Summary ---
:1950 Author Organization [place] Address [address] [place] [address] Care Team Providers Name Role Phone Ingrid Santana RN Unavailable Unavailable Momo Forbes Primary Care Provider Reason for Visit Reason Onset Date Comments Medication Question 07/26/2014 Encounter Details Date Type Department Care Team Description 07/26/2014 Telephone PHARMACY Duncan, Fina, RPH Medication Question [address] [facility] [place] [address] [address] [facility] [phone] [place] [address] Social History Tobacco Use Types Packs/Day Years Used Date Smoking Tobacco: Former Cigars Quit : 08/22/2006 Smokeless Tobacco: Never Alcohol Use Standard Drinks/Week Comments Yes 0 (1 standard drink = 0.6 oz pure alcoho l) occasional drink. Sex Assigned at Date Recorded Not on file documented as of this encounter Miscellaneous Notes Telephone Encounter - RachellekjBeny - 07/26/2014 2:47 PM CST Current Outpatient [...] healthy and happy Beny Staton [facility] Specialty Pharmacist [phone] GE MECHANIC documented in this encounter Plan of Treatment Not on filedocumented as of this encounter Visit Diagnoses Not on filedocumented in this encounter Care Teams News Production Assistant Relationship Specialty Start Date End Date Momo Forbes PCP - General Family Practice 01/02/14 [facility] [address] [place] [address] Ingrid Santana, RN Registered Nurse Transplant 02/10/12 documented as of this encounter
--- OUTSIDE RECORDS SUMMARY | 2022-06-23 11:24 | XMS_ITS | Encounter Summary ---
:1950 Author Organization [place] Address [facility]0 [facility] [place] [address] Care Team Providers Name Role Phone Ingrid Santana RN Unavailable Unavailable Momo Forbes Primary Care Provider Encounter Details Date Type Department Care Team Description 06/10/2014 External Order Results The Transplant Ce nter Nurse, [facility] 2nd Floor, Clinic [address]A [address] [address] Social History Tobacco Use Types [...] 60 (L) >60 LABDE SCAN (if ml/min/1.7 Ghanaian) 3m2 (External) GFR Estimated 49 (L) >60 [...] on filedocumented in this encounter Care Teams Commodities Broker Relationship Specialty Start Date End Date Momo Forbes PCP - General Family Practice 01/02/14 [facility] [address] [place] [address] Ingrid Santana, RN Registered Nurse Transplant 02/10/12 documented as of this encounter
--- OUTSIDE RECORDS SUMMARY | 2022-06-23 11:24 | XMS_ITS | Encounter Summary ---
:1950 Author Organization [place] Address [address] [place] [address] Care Team Providers Name Role Phone Ingrid Santana RN Unavailable Unavailable Momo Forbes Primary Care Provider Encounter Details Date Type Department Care Team Description 06/22/[address] [facility], [facility] [place] [address] [phone] [place] [address] 848 [place] [address] (Wo rk) Social History Tobacco [...] AM R esults for this MASS SPECTROMETRY TABULATING CLERK procedure are in the results section. TACROLIMUS BY TANDEM Routine 07/08/2014 8:15 AM R esults for this MASS SPECTROMETRY TABULATING CLERK procedure are in the results section. TACROLIMUS BY TANDEM Routine 07/01/2014 8:25 AM R esults for this MASS SPECTROMETRY TABULATING CLERK procedure are in the results section. TACROLIMUS BY TANDEM Routine 06/24/2014 8:30 AM R esults for this MASS SPECTROMETRY TABULATING CLERK procedure are in the results section. documented in this encounter Results Tacrolimus level (07/15/2014 8:25 AM TABULATING CLERK) [facility] gist Method Time Signature Tacrolimus Last 07/14/14 [facility] Dose [address] [facility] Tacrolimus 8.1 5.0 - [facility] Level 15.0 ug/L [facility] Comment: Tacrolimus Reference Range Kidney [...] / Volume Laterality 07/15/2014 8:25 AM 4 TABULATING CLERK 10:56 AM TABULATING CLERK Deysi Alicea MD LAB - BLOOD ORDERABLES Performing Organization Address City/State/ZIP Code Phon e Number [facility] [address] [place] [address] [facility] Tacrolimus level (07/08/2014 8:15 AM TABULATING CLERK) [facility] gist Method Time Signature Tacrolimus Last 2000 [facility] Dose 07/07/[address] [facility] Tacrolimus 8.6 5.0 - [facility] Level 15.0 ug/L [facility] Comment: Tacrolimus Reference Range Kidney [...] / Volume Laterality 07/08/2014 8:15 AM 4 TABULATING CLERK 11:03 AM TABULATING CLERK Deysi Alicea MD LAB - BLOOD ORDERABLES Performing Organization Address City/State/ZIP Code Phon e Number [facility] [address] [place] [address] [facility] Tacrolimus level (07/01/2014 8:25 AM TABULATING CLERK) [facility] gist Method Time Signature Tacrolimus Last 1999, [facility] Dose 06/30/[address] [facility] Tacrolimus 9.3 5.0 - [facility] Level 15.0 ug/L [facility] Comment: Tacrolimus Reference Range Kidney [...] / Volume Laterality 07/01/2014 8:25 AM 4 TABULATING CLERK 12:11 PM TABULATING CLERK Mingo Dangelo MD LAB - BLOOD ORDERABLES Performing Organization Address City/State/ZIP Code Phon e Number [facility] [address] [place] [address] [facility] Tacrolimus level (06/24/2014 8:30 AM TABULATING CLERK) [facility] gist Method Time Signature Tacrolimus Last 1999 [facility] Dose 06/23/[address] [facility] Tacrolimus 10.5 5.0 - [facility] Level 15.0 ug/L [facility] Comment: Tacrolimus Reference Range Kidney [...] / Volume Laterality 06/24/2014 8:30 AM 4 TABULATING CLERK 11:18 AM TABULATING CLERK Deysi Alicea MD LAB - BLOOD ORDERABLES Performing Organization Address City/State/ZIP Code Phon e Number [facility] [address] [place] [address] [facility] documented in this encounter Visit Diagnoses Not on filedocumented in this encounter Care Teams Pizza Chef Relationship Specialty Start Date End Date Momo Forbes PCP - General Family Practice 01/02/14 [facility] [address] [place] [address] Ingrid Santana, RN Registered Nurse Transplant 02/10/12 documented as of this encounter
--- OUTSIDE RECORDS SUMMARY | 2022-06-23 11:24 | XMS_ITS | Encounter Summary ---
:1950 Author Organization [place] Address [address] [place] [address] Care Team Providers Name Role Phone Ingrid Santana RN Unavailable Unavailable Momo Forbes Primary Care Provider Joseph Quintana MD Unavailable Encounter Details Date Type Department Care Team Description 05/16/2014 External Order Results The Transplant Ce nter Nurse, [place] 2nd Floor, Clinic [address] [place] [address] Social History Tobacco Use Types [...] (if ml/min/1.7 Micronesian) 3m2 (External) GFR Estimated 52 (L) >60 [...] filedocumented in this encounter Care Teams Rn L And D Relationship Specialty Start Date End Date Momo Forbes PCP - General Family Practice 01/02/14 [facility] [address] [place] [address] Ingrid Santana, RN Registered Nurse Transplant 02/10/12 Joseph Quintana, Assigned Nephrology 03/29/21 MD Provider [address] [place] [address] documented as of this encounter
--- OUTSIDE RECORDS SUMMARY | 2022-06-23 11:24 | XMS_ITS | Encounter Summary ---
:1950 Author Organization [place] Address [address] [place] [address] Care Team Providers Name Role Phone Ingrid Santana RN Unavailable Unavailable Momo Forbes Primary Care Provider Joseph Quintana MD Unavailable Encounter Details Date Type Department Care Team Description 07/17/2014 External Order Results The Transplant Ce nter Nurse, [facility] 2nd Floor, Clinic [address]A [address] [place] [address] Social History Tobacco Use Types [...] 8:28 AM Results f or this RESULTS OUTBOUND SALES CONSULTANT procedure are i n the results section. documented in this encounter Results (ABNORMAL) TXP External Lab Result (07/15/2014 8:28 AM OUTBOUND SALES CONSULTANT) Analysis Performed At Patho logist Time [...] 60 (L) >60 LABDE SCAN (if ml/min/1.7 Congolese) 3m2 (External) GFR Estimated 49 (L) >60 [...] / / Volume Laterality 07/15/2014 8:28 AM OUTBOUND SALES CONSULTANT Narrative JESSICA PFT - 07/17/2014 8:35 AM OUTBOUND SALES CONSULTANT Verified by Maribel Plunkett on 07/17/20 14. Patient Reported LABORATORY Performing Organization Address City/State/ZIP Code Phon e Number [facility] LABDE SCAN documented in this encounter Visit Diagnoses Not on filedocumented in this encounter Care Teams Lead Software Engineer Relationship Specialty Start Date End Date Momo Forbes PCP - General Family Practice 01/02/14 [place] [address] Ingrid Santana, RN Registered Nurse Transplant 02/10/12 Joseph Quintana, Assigned Nephrology 03/29/21 MD Provider [address] [place] [id number] documented as of this encounter
--- OUTSIDE RECORDS SUMMARY | 2022-06-23 11:24 | XMS_ITS | Encounter Summary ---
:1950 Author Organization [place] Address [address] [place] [address] Care Team Providers Name Role Phone Ingrid Santana RN Unavailable Unavailable Momo Forbes Primary Care Provider Joseph Quintana MD Unavailable Encounter Details Date Type Department Care Team Description 05/27/2014 External Order Results The Transplant Ce nter Nurse, [facility] 2nd Floor, Clinic [address]A [address] [place] [address] Social History Tobacco Use Types [...] on filedocumented in this encounter Care Teams Telecommunications Analyst Relationship Specialty Start Date End Date Momo Forbes PCP - General Family Practice 01/02/14 [facility] [address] [place], [place] [id number] Ingrid Santana, RN Registered Nurse Transplant 02/10/12 Joseph Quintana, Assigned Nephrology 03/29/21 MD Provider [address] [place] [address] documented as of this encounter
--- OUTSIDE RECORDS SUMMARY | 2022-06-23 11:24 | XMS_ITS | Encounter Summary ---
:1950 Author Organization [place] Address [address] [place] [address] Care Team Providers Name Role Phone Ingrid Santana RN Unavailable Unavailable Momo Forbes Primary Care Provider Joseph Quintana MD Unavailable Encounter Details Date Type Department Care Team Description 07/10/2014 External Order Results The Transplant Ce nter Nurse, [facility] 2nd Floor, Clinic [address]A [address] [place] [address] Social History Tobacco Use Types [...] 8:17 AM Results f or this RESULTS AIRLINE FLIGHT ATTENDANT procedure are i n the results section. documented in this encounter Results (ABNORMAL) TXP External Lab Result (07/08/2014 8:17 AM AIRLINE FLIGHT ATTENDANT) Analysis Performed At Patho logist Time [...] Estimated >60 >60 LABDE SCAN (if ml/min/1.7 Nauruan) 3m2 (External) GFR Estimated 51 (L) >60 [...] / / Volume Laterality 07/08/2014 8:17 AM AIRLINE FLIGHT ATTENDANT Narrative JESSICA PFT - 07/10/2014 6:20 AM AIRLINE FLIGHT ATTENDANT Verified by Janee Alexis on 07/10/2014 . Patient Reported LABORATORY Performing Organization Address City/State/ZIP Code Phon e Number [facility] LABDE SCAN documented in this encounter Visit Diagnoses Not on filedocumented in this encounter Care Teams Oracle Erp Developer Relationship Specialty Start Date End Date Momo Forbes PCP - General Family Practice 01/02/[address] [address] Ingrid Santana, RN Registered Nurse Transplant 02/10/12 Joseph Quintana, Assigned Nephrology 03/29/21 MD Provider [address] [place] [address] documented as of this encounter
--- OUTSIDE RECORDS SUMMARY | 2022-06-23 11:24 | XMS_ITS | Encounter Summary ---
:1950 Author Organization [place] Address [address] [place] [address] Care Team Providers Name Role Phone Ingrid Santana RN Unavailable Unavailable Momo Forbes Primary Care Provider Joseph Quintana MD Unavailable Encounter Details Date Type Department Care Team Description 08/06/2014 External Order Results The Transplant Ce nter Nurse, [facility] 2nd Floor, Clinic [address]A [address] [place] [address] Social History Tobacco Use Types [...] 8:39 AM Results f or this RESULTS UNDERWATER TRAPPER procedure are i n the results section. documented in this encounter Results (ABNORMAL) TXP External Lab Result (08/05/2014 8:39 AM UNDERWATER TRAPPER) Analysis Performed At Patho logist Time Signature [...] 55 (L) >60 LABDE SCAN (if ml/min/1.7 Croatian) 3m2 (External) GFR Estimated 45 (L) >60 [...] / / Volume Laterality 08/05/2014 8:39 AM UNDERWATER TRAPPER Narrative JESSICA PFT - 08/06/2014 7:40 AM UNDERWATER TRAPPER Verified by Mary Whitehead on 08/06/2014. Patient Reported LABORATORY Performing Organization Address City/State/ZIP Code Phon e Number [facility] LABDE SCAN documented in this encounter Visit Diagnoses Not on filedocumented in this encounter Care Teams Installation Tech Relationship Specialty Start Date End Date Momo Forbes PCP - General Family Practice 01/02/[address] [id number] Ingrid Santana, RN Registered Nurse Transplant 02/10/12 Joseph Quintana, Assigned Nephrology 03/29/21 MD Provider [address] [place] [address] documented as of this encounter
--- OUTSIDE RECORDS SUMMARY | 2022-06-23 11:24 | XMS_ITS | Encounter Summary ---
:1950 Author Organization [place] Address [address] [place] [address] Care Team Providers Name Role Phone Ingrid Santana RN Unavailable Unavailable Momo Forbes Primary Care Provider Joseph Quintana MD Unavailable Encounter Details Date Type Department Care Team Description 07/25/2014 External Order Results The Transplant Ce nter Nurse, [facility] 2nd Floor, Clinic [address]A [address] [place] [address] Social History Tobacco Use [...] 8:22 AM Results f or this RESULTS PHOTO STYLIST procedure are i n the results section. documented in this encounter Results (ABNORMAL) TXP External Lab Result (07/22/2014 8:22 AM PHOTO STYLIST) Analysis Performed At Patho logist Time Signature [...] 52 (L) >60 LABDE SCAN (if ml/min/1.7 Panamanian) 3m2 (External) GFR Estimated 43 (L) >60 [...] / / Volume Laterality 07/22/2014 8:22 AM PHOTO STYLIST Narrative JESSICA PFT - 07/25/2014 6:19 AM PHOTO STYLIST Verified by Janee Alexis on 07/25/2014 . Patient Reported LABORATORY Performing Organization Address City/State/ZIP Code Phon e Number [facility] LABDE SCAN documented in this encounter Visit Diagnoses Not on filedocumented in this encounter Care Teams Surveyor Relationship Specialty Start Date End Date Momo Forbes PCP - General Family Practice 01/02/14 [facility] [address] [place] [id number] Ingrid Santana, RN Registered Nurse Transplant 02/10/12 Joseph Quintana, Assigned Nephrology 03/29/21 MD Provider [address] [place] [address] documented as of this encounter
--- OUTSIDE RECORDS SUMMARY | 2022-06-23 11:24 | XMS_ITS | Encounter Summary ---
:1950 Author Organization [place] Address [address] [place] [address] Care Team Providers Name Role Phone Ingrid Santana RN Unavailable Unavailable Momo Forbes Primary Care Provider Encounter Details Date Type Department Care Team Description 07/22/2014 Orders Only [facility], Joseph Conor [facility], [facility] 500 [facility] [address] [place] [address] [phone] [place] [address] 869 [place] [address] (Wo rk) Social History Tobacco [...] AM Resul ts for this SINGLE ANTIGEN PORTUGUESE TUTOR procedure are in the results section. HLA LUKASZ CLASS I Routine 07/29/2014 8:20 AM Result s for this SINGLE ANTIGEN PORTUGUESE TUTOR procedure are in the results section. TACROLIMUS BY TANDEM Routine 07/29/2014 8:20 AM R esults for this MASS SPECTROMETRY PORTUGUESE TUTOR procedure are in the results section. TACROLIMUS BY TANDEM Routine 07/22/2014 8:20 AM R esults for this MASS SPECTROMETRY PORTUGUESE TUTOR procedure are in the results section. documented in this encounter Results HLA Lukasz Class II Single Antigen (07/29/2014 8:20 AM PORTUGUESE TUTOR) [employer] Method Time Signature SA2 Test SA HI [...] Volume Laterality 07/29/2014 8:20 AM 4 3:26 PORTUGUESE TUTOR PM PORTUGUESE TUTOR Deysi Alicea MD LAB - IMMUNOLOGY ORDERABLES Performing Organization Address [facility] Phon e Number U HLA LABORATORY Immunology/Histocompatabil [place], [place] [address] [facility] 500 [facility], Room 3-580 HISTOTRAC HLA Lukasz Class I Single Antigen (07/29/2014 8:20 AM PORTUGUESE TUTOR) [employer] Method Time Signature SA1 Test SA HI [...] Volume Laterality 07/29/2014 8:20 AM 4 3:26 PORTUGUESE TUTOR PM PORTUGUESE TUTOR Deysi Alicea MD LAB - IMMUNOLOGY ORDERABLES Performing Organization Address [facility] Phon e Number U HLA LABORATORY Immunology/Histocompatabil [place], [place] [address] [facility] 500 [facility] [address] Building, Room 3-580 HISTOTRAC Tacrolimus level (07/29/2014 8:20 AM PORTUGUESE TUTOR) [facility] gist Method Time Signature Tacrolimus Last 1999 [facility] Dose 07/28/14 [facility] Tacrolimus 10.5 5.0 - [facility] Level 15.0 ug/L [facility] Comment: Tacrolimus Reference [...] / Volume Laterality 07/29/2014 8:20 AM 4 PORTUGUESE TUTOR 11:17 AM PORTUGUESE TUTOR Deysi Alicea MD LAB - BLOOD ORDERABLES Performing Organization Address City/State/ZIP Code Phon e Number [facility] 500 [place] [address] [facility] Tacrolimus level (07/22/2014 8:20 AM PORTUGUESE TUTOR) [facility] gist Method Time Signature Tacrolimus Last 1929 [facility] Dose 07/21/14 [facility] Tacrolimus 10.8 5.0 - [facility] Level 15.0 ug/L [facility] Comment: Tacrolimus Reference [...] / Volume Laterality 07/22/2014 8:20 AM 4 PORTUGUESE TUTOR 11:45 AM PORTUGUESE TUTOR Deysi Alicea MD LAB - BLOOD ORDERABLES Performing Organization Address City/State/ZIP Code Phon e Number [facility] 500 [place] [address] [facility] documented in this encounter Visit Diagnoses Not on filedocumented in this encounter Care Teams Piano Case And Bench Assembler Relationship Specialty Start Date End Date Momo Forbes PCP - General Family Practice 01/02/14 [facility] 1999 [place] [address] Ingrid Santana, RN Registered Nurse Transplant 02/10/12 documented as of this encounter
--- OUTSIDE RECORDS SUMMARY | 2022-06-23 11:24 | XMS_ITS | Encounter Summary ---
:1950 Author Organization [place] Address [facility] [place] [address] Care Team Providers Name Role Phone Ingrid Santana RN Unavailable Unavailable Momo Forbes Primary Care Provider Encounter Details Date Type Department Care Team Description 05/20/2014 External Order Results The Transplant Ce nter Nurse, [facility] 2nd Floor, Clinic [address]A [address] [phone] Social History Tobacco Use Types [...] 55 (L) >60 LABDE SCAN (if ml/min/1.7 Maltese) 3m2 (External) GFR Estimated 46 (L) >60 [...] Family Practice 01/02/14 [facility] 1999 [place], [place] [id number] Ingrid Santana, RN Registered Nurse Transplant 02/10/12 documented as of this encounter
--- OUTSIDE RECORDS SUMMARY | 2022-06-23 11:24 | XMS_ITS | Encounter Summary ---
:1950 Author Organization [place] Address [facility] [place] [address] Care Team Providers Name Role Phone Ingrid Santana RN Unavailable Unavailable Momo Forbes Primary Care Provider Encounter Details Date Type Department Care Team Description 06/17/2014 External Order Results The Transplant Ce nter Nurse, [facility] 2nd Floor, Clinic [address]A [address] [phone] Social History Tobacco Use Types [...] 57 (L) >60 LABDE SCAN (if ml/min/1.7 Welsh) 3m2 (External) GFR Estimated 47 (L) >60 [...] filedocumented in this encounter Care Teams Steam And Power Superintendent Relationship Specialty Start Date End Date Momo Forbes PCP - General Family Practice 01/02/14 [facility] 1999 [place] [id number] Ingrid Santana, RN Registered Nurse Transplant 02/10/12 documented as of this encounter
--- OUTSIDE RECORDS SUMMARY | 2022-06-23 11:24 | XMS_ITS | Encounter Summary ---
:1950 Author Organization [place] Address [address] [place] [address] Care Team Providers Name Role Phone Ingrid Santana RN Unavailable Unavailable Momo Forbes Primary Care Provider Joseph Quintana MD Unavailable Encounter Details Date Type Department Care Team Description 07/03/2014 External Order Results The Transplant Ce nter Nurse, [facility] 2nd Floor, Clinic [address]A [address] [place] [address] Social History Tobacco Use Types [...] 8:27 AM Results f or this RESULTS JAVA SOLUTIONS ARCHITECT procedure are i n the results section. documented in this encounter Results (ABNORMAL) TXP External Lab Result (07/01/2014 8:27 AM JAVA SOLUTIONS ARCHITECT) Analysis Performed At Patho logist Time Signature [...] 57 (L) >60 LABDE SCAN (if ml/min/1.7 Andorran) 3m2 (External) GFR Estimated 47 (L) >60 [...] / / Volume Laterality 07/01/2014 8:27 AM JAVA SOLUTIONS ARCHITECT Narrative JESSICA PFT - 07/03/2014 2:18 PM JAVA SOLUTIONS ARCHITECT Verified by Xiomara Bello on 07/03/20 14. Patient Reported LABORATORY Performing Organization Address City/State/ZIP Code Phon e Number [facility] LABDE SCAN documented in this encounter Visit Diagnoses Not on filedocumented in this encounter Care Teams Line Driver Relationship Specialty Start Date End Date Momo Forbes PCP - General Family Practice 01/02/14 [place] [phone] Ingrid Santana, RN Registered Nurse Transplant 02/10/12 Joseph Quintana, Assigned Nephrology 03/29/21 MD Provider [address] [place] [phone] documented as of this encounter
--- OUTSIDE RECORDS SUMMARY | 2022-06-23 11:24 | XMS_ITS | Encounter Summary ---
:1950 Author Organization [place] Address [facility] [place] [address] Care Team Providers Name Role Phone Ingrid Santana RN Unavailable Unavailable Momo Forbes Primary Care Provider Encounter Details Date Type Department Care Team Description 05/17/2014 Orders Only Nephrology Shiva Kahn RN -donor kidney 2nd Floor, Clinic 2A [facility] transplant recipient Tommy Ruizfelisa [address] [place] [address] (Primary Dx) Building [address] [place] [phone] [phone] Social History Tobacco Use Types Packs/Day Years [...] transplant documented in this encounter Care Teams Bird Trapper Relationship Specialty Start Date End Date Momo Forbes PCP - General Family Practice 01/02/[address] [address] Ingrid Santana RN Registered Nurse Transplant 02/10/12 documented as of this encounter
--- OUTSIDE RECORDS SUMMARY | 2022-06-23 11:25 | XMS_ITS | Encounter Summary ---
:1950 Author Organization [place] Address [facility] [place] [address] Care Team Providers Name Role Phone Ingrid Santana RN Unavailable Unavailable Momo Forbes Primary Care Provider Reason for Visit Reason Onset Date Comments Refill Request 04/26/2014 Encounter Details Date Type Department Care Team Description 04/26/2014 Refill Nephrology Shiva Kahn RN Refill Request 2nd Floor, Clinic 2A [facility] [place] [address] [facility] [place], [place] [phone] [place] [address] [place] [phone] Social History Tobacco Use Types Packs/Day [...] transplant documented in this encounter Care Teams Track Manager Relationship Specialty Start Date End Date Momo Forbes PCP - General Family Practice 01/02/14 [facility] 1999 [place] [address] Ingrid Santana RN Registered Nurse Transplant 02/10/12 documented as of this encounter
--- OUTSIDE RECORDS SUMMARY | 2022-06-23 11:25 | XMS_ITS | Encounter Summary ---
:1950 Author Organization [place] Address [facility] [place] [address] Care Team Providers Name Role Phone Ingrid Santana RN Unavailable Unavailable Momo Forbes Primary Care Provider Reason for Visit Reason Onset Date Comments Refill Request 04/05/2014 Tamy Cabrera Encounter Details Date Type Department Care Team Description 04/05/2014 Refill The Transplant Migel Martinez, Refill Request 2nd Floor, Clinic 2A ([facility] 420 [facility] antoprazole) Building [facility] 195 6 [facility] 88 [place] [phone] Social History Tobacco Use Types Packs/Day Years [...] Last Fill: 03/14/14 Qty: 30 [facility] [phone] documented in this encounter Plan of Treatment Not on filedocumented as of this encounter Visit Diagnoses Diagnosis S/P kidney transplant Kidney replaced by transplant Atrial fibrillation (H) Atrial fibrillation documented in this encounter Care Teams Ditching Machine Engineer Relationship Specialty Start Date End Date Momo Forbes PCP - General Family Practice 01/02/14 [facility] 1999 [place] [address] Ingrid Santana, RN Registered Nurse Transplant 02/10/12 documented as of this encounter
--- OUTSIDE RECORDS SUMMARY | 2022-06-23 11:25 | XMS_ITS | Encounter Summary ---
:1950 Author Organization [place] Address [facility] [place] [address] Care Team Providers Name Role Phone Ingrid Santana RN Unavailable Unavailable Momo Forbes Primary Care Provider Reason for Visit Reason Onset Date Comments Pre Visit Planning - Done 04/08/2014 2 m f/u Post o p AFIB s/p DCCV. on warfarin 4 weeks Encounter Details Date Type Department Care Team Description 04/08/2014 PRE VISIT [facility] [address] Pre Visit Planning - Physicians Heart MD David Done (2 m f/u Post op [facility] AF IB s/p DCCV. on [employer] warfarin 4 weeks) 4th Floor, Clinic 4B [address] [phone] (Wo rk) [address] [phone] Social History Tobacco Use Types Packs/Day Years [...] on filedocumented in this encounter Care Teams Telephone Quotation Clerk Relationship Specialty Start Date End Date Momo Forbes PCP - General Family Practice 01/02/[address] [address] Ingrid Santana, RN Registered Nurse Transplant 02/10/12 documented as of this encounter
--- OUTSIDE RECORDS SUMMARY | 2022-06-23 11:25 | XMS_ITS | Encounter Summary ---
:1950 Author Organization [place] Address [address] [place] [address] Care Team Providers Name Role Phone Ingrid Santana RN Unavailable Unavailable Momo Forbes Primary Care Provider Reason for Visit Reason Onset Date Comments Anticoagulation 03/29/2014 Encounter Details Date Type Department Care Team Description 03/29/2014 Telephone [facility] Mary Sheffield RN Anticoagulation Anticoagulation Clin [place] [phone] Social History Tobacco Use Types Packs/Day [...] \this patient. He has INRs done at [facility] He takes Warfarin 5 mg daily He developed Afib after surgery . He sees cardiologylater this month to determine if the Warfarin can be stopped. He is having a stent removed on Tuesday04/01/14 Spoke with the Oncall Dr Perez no need to stop Warfarin INR yesterday at [facility] was 1[address] Kahn Instructed patient's to give 7.5 mg tonight and then 5 mg Sat , Sun Conservative increase since we do not know how quickly he responds. He is having the procedure on Tuesday. documented in this encounter Plan of Treatment Not on filedocumented as of this encounter Visit Diagnoses Not on filedocumented in this encounter Care Teams Health Diagnostics Teacher Relationship Specialty Start Date End Date Momo Forbes PCP - General Family Practice 01/02/[address] [address] Ingrid Santana, RN Registered Nurse Transplant 02/10/12 documented as of this encounter
--- OUTSIDE RECORDS SUMMARY | 2022-06-23 11:25 | XMS_ITS | Encounter Summary ---
:1950 Author Organization [place] Address [address] [place] [address] Care Team Providers Name Role Phone Ingrid Santana RN Unavailable Unavailable Momo Forbes Primary Care Provider Encounter Details Date Type Department Care Team Description 03/22/2014 Orders Only [facility], Joseph Conor [facility], [facility] [place] [address] [phone] [place] [address] 487 [place] [address] (Wo rk) Social History Tobacco [...] Results Tacrolimus level (04/19/2014 8:40 AM CDT) [facility] Method Time Signature Tacrolimus Not Provided [facility] Last Dose [facility] Tacrolimus 10.3 5.0 - [facility] Level 15.0 ug/L [facility] Comment: Tacrolimus Reference Range Kidney Transplant [...] Phon e Number [facility] 500 [place], [place] [phone] [place] [address] [facility] Tacrolimus level (04/16/2014 8:22 AM CDT) [facility] gist Method Time Signature Tacrolimus Not Provided [facility] Last Dose [facility] Tacrolimus 9.1 5.0 - [facility] Level 15.0 ug/L [facility] Comment: Tacrolimus Reference Range Kidney Transplant [...] Phon e Number [facility] 500 [place], [place] [phone] [place] [address] [facility] Tacrolimus level (04/11/2014 8:40 AM CDT) [facility] gist Method Time Signature Tacrolimus Last 04/10/14 [facility] Dose 19:00 [facility] Tacrolimus 14.4 5.0 - [facility] Level 15.0 ug/L [facility] Comment: Tacrolimus Reference Range Kidney Transplant [...] Phon e Number [facility] 500 [place] [address] [facility] Tacrolimus level (04/09/2014 8:45 AM CDT) [facility] gist Method Time Signature Tacrolimus Last 04/08/14 [facility] Dose 2000 [facility] Tacrolimus 11.7 5.0 - [facility] Level 15.0 ug/L [facility] Comment: Tacrolimus Reference Range Kidney Transplant [...] Phon e Number [facility] 500 [place], [place] [phone] [place] [address] [facility] Tacrolimus level (04/05/2014 9:40 AM CDT) [facility] gist Method Time Signature Tacrolimus Last 1999 [facility] Dose 04/04/14 [facility] Tacrolimus 9.7 5.0 - [facility] Level 15.0 ug/L [facility] Comment: Tacrolimus Reference Range Kidney Transplant [...] Phon e Number [facility] 500 [place] [address] [facility] (ABNORMAL) Tacrolimus level (03/28/2014 8:30 AM CDT) [facility] gist Method Time Signature Tacrolimus Last 03/27/14 [facility] Dose 1900 [facility] Tacrolimus 15.8 (H) 5.0 - [facility] Level 15.0 ug/L [facility] Comment: Tacrolimus Reference Range Kidney Transplant [...] Phon e Number [facility] 500 [place] [address] [facility] Tacrolimus level (03/26/2014 9:18 AM CDT) [facility] gist Method Time Signature Tacrolimus Last 03/25/14 [facility] Dose 1900 [facility] Tacrolimus 9.2 5.0 - [facility] Level 15.0 ug/L [facility] Comment: Tacrolimus Reference Range Kidney Transplant [...] Phon e Number [facility] 500 [place], [place] [phone] [place] [address] [facility] Tacrolimus level (03/14/2014 9:00 AM CDT) [facility] gist Method Time Signature Tacrolimus Last 1999 [facility] Dose 03/13/14 [facility] Tacrolimus 9.5 5.0 - [facility] Level 15.0 ug/L [facility] Comment: Tacrolimus Reference Range Kidney Transplant [...] Address City/State/ZIP Code Phon e Number [phone] [place] [address] LABS documented in this encounter Visit Diagnoses Not on filedocumented in this encounter Care Teams Threading Machine Feeder Automatic Relationship Specialty Start Date End Date Momo Forbes PCP - General Family Practice 01/02/14 [facility] 1999 [place] [address] Ingrid Santana, RN Registered Nurse Transplant 02/10/12 documented as of this encounter
--- OUTSIDE RECORDS SUMMARY | 2022-06-23 11:25 | XMS_ITS | Encounter Summary ---
:1950 Author Organization [place] Address [address] [place] [address]. [place] [address] Care Team Providers Name Role Phone Ingrid Santana RN Unavailable Unavailable Momo Forbes Primary Care Provider Reason for Visit Reason Onset Date Comments Patient Reminder 05/09/2014 Encounter Details Date Type Department Care Team Description 05/09/2014 Telephone Nephrology Yesenia Clements LPN Patient Reminder 2nd Floor, Clinic 2A [address] [phone] Social History Tobacco Use [...] on filedocumented in this encounter Care Teams B2B Sales Executive Relationship Specialty Start Date End Date Momo Forbes PCP - General Family Practice 01/02/14 [facility] [address] [place] [address] Ingrid Santana, RN Registered Nurse Transplant 02/10/12 documented as of this encounter
--- OUTSIDE RECORDS SUMMARY | 2022-06-23 11:25 | XMS_ITS | Encounter Summary ---
:1950 Author Organization [place] Address [facility] [place] [address] Care Team Providers Name Role Phone Ingrid Santana RN Unavailable Unavailable Momo Forbes Primary Care Provider Reason for Visit Reason Comments Heart Problem 2 m f/u Post op AFIB s/p DCC V. on warfarin 4 weeks Encounter Details Date Type Department Care Team Description 04/09[facility]2014 [facility]ill [facility] ([facility] (Primary Dx); [place] [facility] Enrique Maria pecified essential hypertension; Heart Other and unspecified hyperlipidemia; Tommy [facility] DM (diabetes mellitus), type 2 (H) Building [place] 4th Floor, Clinic 4B [address] [phone] [place], [place] (Work) [address] [phone] Social History Tobacco Use Types Packs/Day Years [...] questions or concerns. 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 Smoking [...] 04/01/2014 Negative NEG mg/dL Final ??? Specific [place] Urine 04/01/2014 1.017 1.003 - 1.035 Final [...] NEG Ketones Urine Negative NEG mg/dL Specific [place] Urine 1.017 1.003 - 1.035 Blood Urine [...] uncontrolled documented in this encounter Care Teams Process Maintenance Technician Relationship Specialty Start Date End Date Momo Forbes PCP - General Family Practice 01/02/14 [facility] [address] [place] [address] Ingrid Santana, RN Registered Nurse Transplant 02/10/12 documented as of this encounter
--- OUTSIDE RECORDS SUMMARY | 2022-06-23 11:25 | XMS_ITS | Encounter Summary ---
:1950 Author Organization [place] Address [address] [place] [address]. [place] [address] Care Team Providers Name Role Phone Ingrid Santana RN Unavailable Unavailable Momo Forbes Primary Care Provider Encounter Details Date Type Department Care Team Description 04/04/2014 Orders Only Nephrology Shiva Kahn RN S/P kidney transplant 2nd Floor, Clinic [address]A [address] [phone] Social History Tobacco Use Types Packs/Day Years [...] transplant documented in this encounter Care Teams Web Site Manager Relationship Specialty Start Date End Date Momo Forbes PCP - General Family Practice 01/02/14 [facility] [address] [place] [address] Ingrid Santana RN Registered Nurse Transplant 02/10/12 documented as of this encounter
--- OUTSIDE RECORDS SUMMARY | 2022-06-23 11:25 | XMS_ITS | Encounter Summary ---
:1950 Author Organization [place] Address [facility] [place] [address] Care Team Providers Name Role Phone Ingrid Santana RN Unavailable Unavailable Momo Forbes Primary Care Provider Reason for Visit Reason Onset Date Comments Patient Reminder 03/26/2014 Encounter Details Date Type Department Care Team Description 03/26/2014 Telephone Nephrology Yesenia Clements LPN Patient Reminder 2nd Floor, Clinic 2A [address] [phone] Social History Tobacco Use [...] current medication list. Patientconfirmed and understood. Yesenia Cleemnts CMA documented in this encounter Plan of Treatment Not on filedocumented as of this encounter Visit Diagnoses Not on filedocumented in this encounter Care Teams Casket Liner Relationship Specialty Start Date End Date Mmoo Forbes PCP - General Family Practice 01/02/14 [facility] 2000 [place] [address] Ingrid Santana, RN Registered Nurse Transplant 02/10/12 documented as of this encounter
--- OUTSIDE RECORDS SUMMARY | 2022-06-23 11:25 | XMS_ITS | Encounter Summary ---
:1950 Author Organization [place] Address [facility] [place] [address] Care Team Providers Name Role Phone Ingrid Santana RN Unavailable Unavailable Momo Forbes Primary Care Provider Encounter Details Date Type Department Care Team Description 05/02/2014 Orders Only Nephrology Shiva Kahn RN -donor kidney 2nd Floor, Clinic 2A [facility] transplant recipient Tommy Ruizfelisa [address] [place] [phone] Social History Tobacco Use Types Packs/Day Years [...] transplant documented in this encounter Care Teams Breakfast Hostess Relationship Specialty Start Date End Date Momo Forbes PCP - General Family Practice 01/02/[address] [address] Ingrid Santana RN Registered Nurse Transplant 02/10/12 documented as of this encounter
--- OUTSIDE RECORDS SUMMARY | 2022-06-23 11:25 | XMS_ITS | Encounter Summary ---
:1950 Author Organization [place] Address [address] [place] [address] Care Team Providers Name Role Phone Ingrid Santana RN Unavailable Unavailable Momo Forbes Primary Care Provider Reason for Visit Auth/Cert - Closed Specialty Diagnoses / Procedures Referred By Contact Refer red To Contact Surgery Diagnoses S/P Kidney Transplant Uu Periop Procedures COMBINED CYSTOSCOPY, REMOVE STENT(S) 500 [place] [address] Phone: Fax: Referral ID Status Reason Start Date Expiration Date Visits Requ ested Visits Authorized [id number] Closed 1 1 Encounter Details Date Type Department Care Team Description 04/01/2014 Hospital Encounter [facility]ly [facility] [place] Mayur, Migel Evans, Same Day Surgery East [address] 500 [facility] 195 [place] [address] [place] [address] (Wo rk) Social History Tobacco Use Types [...] Scott RN - 04/01/2014 10:15 AM CDT [facility], [place] Same-Day Surgery Adult Discharge Orders & Instructions [...] To contact a doctor, call or: ??? [phone] and ask for the resident production control supervisor for (answered 24 hours a day) ??? Emergency Department: [facility]: [phone] (TTY for hearing impaired: [phone]) documented in this encounter Medications at Time [...] Component Value Ref Test Analysis Performed At [facility] gist Range Method Time Signature Specimen Unspecified [facility] Urine CAMPUS LABS Special Specimen [facility] Requests received in MICROBIOLOGY preservative Culture Micro No growth [facility] MICROBIOLOGY Micro Report FINAL [facility] Status 04/02/2014 MICROBIOLOGY Specimen Anatomical Collection Method Collection Time Receive d Time (Source) Location / / Volume Laterality 04/01/2014 9:00 AM 4 9:18 CDT AM CDT Migel Merchant MD LAB - MICRO GENERAL ORDERABL ES Performing Organization Address City/State/ZIP Code Phon e Number [address] [address] [facility] UNIVERSITY [facility] LABS [facility] MICROBIOLOGY (ABNORMAL) UA with Microscopic (04/01/2014 9:00 AM CDT) Component Value Ref Test Analysis [facility]formed At [facility] gist Range Method Time Signature Color Urine Yellow [facility] UNIVERSITY [facility]AMP[facility] LABS Appearance Urine Clear [facility] LABS Glucose Urine 30 (A) NEG [facility] mg/dL UNIVERSITY CAMPUS LABS Bilirubin Urine Negative NEG [facility] LABS Ketones Urine Negative NEG [facility] mg/dL UNIVERSITY CAMPUS LABS Specific [place] 1.017 1.003 - [facility] Urine 1.035 UNIVERSITY CAMPUS LABS Blood Urine Moderate (A) NEG [facility]IVERSITY CAMP[facility] LABS pH Urine 6.0 5.0 - [facility] 7.0 pH UNIVERSITY [place] LABS Protein Albumin 10 (A) NEG [facility] Urine mg/dL UNIVERSITY [place] LABS Urobilinogen Normal 0.0 - [facility] mg/dL 2.0 [place] mg/dL [place] LABS Nitrite Urine Negative NEG [facility]ITY CAMP[facility] LABS Leukocyte Negative NEG [facility] Esterase Urine UNIVERSITY [place] LABS Source Unspecified [facility] Urine UNIVERSITY CAMPUS [...] LAB - URINE ORDERABLES Performing Organization Address City/[facility]/ZIP Code Phon e Number [address] LABS (ABNORMAL) INR (04/01/2014 8:36 AM CDT) P athologist Signature INR 1.64 (H) 0.86 - 1.14 [facility] LABS Specimen Anatomical Collection Method Collection Time Receive d Time (Source) Location / / Volume Laterality Blood specimen 04/01/2014 8:36 AM 014 8:41 (specimen) CDT AM CDT Momo Jimenez MD LAB - BLOOD ORDERABLES Performing Organization Address City/[facility]/ZIP Code Phon e Number [facility] [address] LABS EKG 12-lead, tracing only (04/01/2014 8:28 AM CDT) Patholo gist Method Time Signature Interpretation ECG Click View RADIOLOGY Image link RESULTS to view waveform and result Specimen (Source) Anatomical Collection Method Collection Time Re ceived Time Location / / Volume Laterality 04/01/2014 8:28 AM CDT Momo Jiemnez MD ECG ORDERABLES Performing Organization Address City/[facility]/ZIP Code Phon e Number RADIOLOGY RESULTS Potassium (04/01/2014 8:11 AM CDT) athologist Signature Potassium 4.1 3.4 - 5.3 [facility] mmol/L [place] LABS Specimen Anatomical Collection Method Collection Time Receive d Time (Source) Location / / Volume Laterality Blood specimen 04/01/2014 8:11 AM 014 8:27 (specimen) CDT AM CDT Momo Jimenez MD LAB - BLOOD ORDERABLES Performing Organization Address [facility]/ZIP Code Phon e Number [address] LABS (ABNORMAL) Hemoglobin (04/01/2014 8:11 AM CDT) athologist Signature Hemoglobin 10.2 (L) 13.3 - [facility] 17.7 g/dL [place] LABS Specimen Anatomical Collection Method Collection Time Receive d Time (Source) Location / / Volume Laterality Blood specimen 04/01/2014 8:11 AM 014 8:27 (specimen) CDT AM CDT Momo Jimenez MD LAB - BLOOD ORDERABLES Performing Organization Address City/[facility]/ZIP Code Phon e Number [address] LABS (ABNORMAL) Glucose by meter (04/01/2014 8:02 AM CDT) athologist Signature Glucose 158 (H) 60 - 99 POINT OF CARE mg/dL TEST, GLUCOSE Specimen Anatomical Collection Method Collection Time Receive d Time (Source) Location / / Volume Laterality 04/01/2014 8:02 AM 4 8:05 CDT AM CDT Migel Merchant MD LAB - BEAKER POCT Performing Organization Address City/[facility]/ZIP Code Phon e Number [facility] POINT OF CARE TEST, GLUCOSE POINT OF CARE TEST, GLUCOSE documented in this encounter Visit Diagnoses Not on filedocumented in this encounter Active and Recently Administered Medications Times are shown in CDT. Scheduled Medication Order 03/30/2014 03/31/2014 04/01/2014 levofloxacin (LEVAQUIN) IVPB 500 mg (COMPLETED) 0850 (Given - Provider: Addis Brannon APRN TROMMEL TENDER - Comment: Asked by Fellow to give [...] Intra-procedure documented in this encounter Care Teams Target Setter Relationship Specialty Start Date End Date Momo Forbes PCP - General Family Practice 01/02/14 [place] [id number] Ingrid Santana, RN Registered Nurse Transplant 02/10/12 documented as of this encounter
--- OUTSIDE RECORDS SUMMARY | 2022-06-23 11:25 | XMS_ITS | Encounter Summary ---
:1950 Author Organization [place] Address [facility] [place] [address] Care Team Providers Name Role Phone Ingrid Santana RN Unavailable Unavailable Momo Forbes Primary Care Provider Reason for Visit Reason Onset Date Comments Anticoagulation 04/01/2014 Encounter Details Date Type Department Care Team Description 04/01/2014 Telephone [facility] Joseph Levine , Anticoagulation Anticoagulation Clin ic [facility] 420 [place], [place] [phone] [facility] [phone] [place] [address] [place] [address] (Wo rk) Social History Tobacco Use Types Packs/Day Years Used Date Smoking Tobacco: Former Cigars Quit : 08/22/2006 Smokeless Tobacco: Never Alcohol Use Standard Drinks/Week Comments Yes 0 (1 standard drink = 0.6 oz pure alcoho l) occasional drink. Sex Assigned at Date Recorded Not on file documented as of this encounter Miscellaneous Notes Telephone Encounter - Joseph Levine, [facility] - 04/01/2014 5:22 PM CDT [...] on filedocumented in this encounter Care Teams Cranberry Sorter Relationship Specialty Start Date End Date Momo Forbes PCP - General Family Practice 01/02/14 [place] [phone] Ingrid Santana, RN Registered Nurse Transplant 02/10/12 documented as of this encounter
--- OUTSIDE RECORDS SUMMARY | 2022-06-23 11:25 | XMS_ITS | Encounter Summary ---
:1950 Author Organization [place] Address [facility] [place] [address] Care Team Providers Name Role Phone Ingrid Santana RN Unavailable Unavailable Momo Forbes Primary Care Provider Reason for Visit Reason Comments RECHECK s/p kidney tx Auth/Cert - Closed Specialty Diagnoses / Procedures Referred By Contact Refer red To Contact Surgery Diagnoses S/P Kidney Transplant Uu Periop Procedures COMBINED CYSTOSCOPY, REMOVE STENT(S) 500 [place] [address] Phone: Fax: Referral ID Status Reason Start Date Expiration Date Visits Requ ested Visits Authorized [id number] Closed 1 1 Encounter Details Date Type Department Care Team Description 04/01/2014 Office Visit Nephrology Deysi Alicea Immunosuppressed status (H) (Primary Dx); 2nd Floor, Clinic MD Aline High risk medication use; 2A [facility] Kidney replaced by homeroan t; Tommy DOMÍNGUEZ S/P kidney transplant [place] [address] [place] [address] [place], [place] (Work) [address] [phone] Social History Tobacco Use Types Packs/Day Years [...] -no follow up, I will ask his sales planning coordinator to obtain results from his local [...] at home regularly; BP checked by me [id number]; HE was previously on Metoprolol 12.5 mg [...] Years of Education: 14 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
--- OUTSIDE RECORDS SUMMARY | 2022-06-23 11:25 | XMS_ITS | Encounter Summary ---
:1950 Author Organization [place] Address [address] [place] [address] Care Team Providers Name Role Phone Ingrid Santana RN Unavailable Unavailable Momo Forbes Primary Care Provider Reason for Visit Auth/Cert - Closed Specialty Diagnoses / Procedures Referred By Contact Refer red To Contact Surgery Diagnoses S/P Kidney Transplant Uu Periop Procedures COMBINED CYSTOSCOPY, REMOVE STENT(S) 500 [place] [address] Phone: Fax: Referral ID Status Reason Start Date Expiration Date Visits Requ ested Visits Authorized [id number] Closed 1 1 Encounter Details Date Type Department Care Team Description 04/01/2014 Surgery [facility] Migel Merchant , [place] of Right Double PeriOp Services J Stent 500 [facility] 420 [facility] [place] [address] [place] [address] [place] [address] (Wo rk) Surgery Details Date/Time Status Location [...] Scott RN - 04/01/2014 10:15 AM CDT [facility], [place] Same-Day Surgery Adult Discharge Orders & Instructions [...] To contact a doctor, call or: ??? [phone] and ask for the resident colorectal surgeon for (answered 24 hours a day) ??? Emergency Department: [facility]: [phone] (TTY for hearing impaired: [phone]) documented in this encounter Medications at Time [...] OR for cysto and stent removal today Sabrian Cole M.D. - Transplant Fellow - [id number] [...] this encounter Miscellaneous Notes Op Note - Mgiel Merchant MD - 04/01/2014 9:03 AM CDT [...] Value Ref Test Analysis Performed At [facility] gist Range Method Time Signature Specimen Unspecified [facility] UNIVERSITY Description Urine CAMPUS LABS Special Specimen [facility] [...] Phon e Number [facility] [address] LABS [facility] MICROBIOLOGY (ABNORMAL) UA with Microscopic (04/01/2014 9:00 AM CDT) Component Value Ref Test Analysis Performed At Patholo gist Range Method Time Signature Color Urine Yellow [facility]ITY [facility] LABS Appearance Urine Clear [facility] LABS Glucose Urine 30 (A) NEG [facility] mg/dL UNIVERSITY CAMPUS LABS Bilirubin Urine Negative NEG [facility] LABS Ketones Urine Negative NEG [facility] mg/dL UNIVERSITY [place] LABS Specific [place] 1.017 1.003 - [facility] Urine 1.035 [facility]IV[facility]ITY [place] LABS Blood Urine Moderate (A) NEG [facility] LAB[facility] pH Urine 6.0 5.0 - [facility] 7.0 pH UNIVERSITY CAMPUS LABS Protein Albumin 10 (A) NEG [facility] Urine mg/dL UNIVERSITY [place] LABS Urobilinogen Normal 0.0 - [facility] mg/dL 2.0 UNIVERSITY mg/dL CAMPUS LABS Nitrite Urine Negative NEG [facility] LABS Leukocyte Negative NEG [facility] Esterase Urine UNIVERSITY [place] LABS Source Unspecified [facility] Urine UNIVERSITY CAMPUS [...] Phon e Number [facility] [address] LABS (ABNORMAL) INR (04/01/2014 8:36 AM CDT) P athologist Signature INR 1.64 (H) 0.86 - 1.14 [facility] LABS Specimen Anatomical Collection Method Collection Time Receive d Time (Source) Location / / Volume Laterality Blood specimen 04/01/2014 8:36 AM 014 8:41 (specimen) CDT AM CDT Momo Jimenez MD LAB - BLOOD ORDERABLES Performing Organization Address City/[facility]/ZIP Code Phon e Number [facility] [address] LABS EKG 12-lead, tracing only (04/01/2014 8:28 AM CDT) [facility] gist Method Time Signature Interpretation ECG Click View RADIOLOGY Image link RESULTS to view waveform and result Specimen (Source) Anatomical Collection Method Collection Time Re ceived Time Location / / Volume Laterality 04/01/2014 8:28 AM CDT Momo Jimenez MD ECG ORDERABLES Performing Organization Address City/[facility]/ZIP Code Phon e Number RADIOLOGY RESULTS Potassium (04/01/2014 8:11 AM CDT) athologist Signature Potassium 4.1 3.4 - 5.3 [facility] mmol/L CAMPUS LABS Specimen Anatomical Collection Method Collection Time Receive d Time (Source) Location / / Volume Laterality Blood specimen 04/01/2014 8:11 AM 014 8:27 (specimen) CDT AM CDT Momo Jimenez MD LAB - BLOOD ORDERABLES Performing Organization Address City/[facility] Code Phon e Number [address] LABS (ABNORMAL) Hemoglobin (04/01/2014 8:11 AM CDT) athologist [facility] Hemoglobin 10.2 (L) 13.3 - [facility] 17.7 g/dL CAMPUS LABS Specimen Anatomical Collection Method Collection Time Receive d Time (Source) Location / / Volume Laterality Blood specimen 04/01/2014 8:11 AM 014 8:27 (specimen) CDT AM CDT Momo Jimenez MD LAB - BLOOD ORDERABLES Performing Organization Address City/[facility]/ZIP Code Phon e Number [address] LABS (ABNORMAL) Glucose by meter (04/01/2014 [...] 0850 (Given - Provider: Addis Brannon APRN USED CAR SALESPERSON - Comment: Asked by Fellow to give [...] Intra-procedure documented in this encounter Care Teams Technical Service Engineer Relationship Specialty Start Date End Date Momo Forbes PCP - General Family Practice 01/02/[address] [address] Ingrid Santana, RN Registered Nurse Transplant 02/10/12 documented as of this encounter
--- OUTSIDE RECORDS SUMMARY | 2022-06-23 11:25 | XMS_ITS | Encounter Summary ---
:1950 Author Organization [place] Address [address] [facility] [place] [address] Care Team Providers Name Role Phone Ingrid Santana RN Unavailable Unavailable Momo Forbes Primary Care Provider Reason for Referral Specialty Diagnoses / Procedures Referred By Contact Refer red To Contact Migel Merchant MD 420 [facility] 195 [place], [place] [address] Referral ID Status Reason Start Date Expiration Date Visits Requ ested Visits Authorized Scheduling Instructions ANTICOAGULATION CLINIC COLLABORATIVE PRA CTICE AGREEMENT The following represents a collaborative practice agreement among the physicians of the Clinic and staff of the Anticoagulat ion Clinic Service ([facility]) Physicians shall: 1. Refer patients requiring anticoagulat ion to a specialty service staffed by personnel of Pharmacy Services and super vised by Clinic physicians. 2. Respond to questions and referrals fr pharmacy staff regarding delinquent or difficult patients. 3. Inform the [facility] staff when a new patie nt is [...] of adverse or sub-therapeutic effects including at [facility] the following: Has the patient experienced [...] Department Care Team Description 03/29/2014 Orders Only [facility] Migel Merchanta l fibrillation (H) (Primary Dx); Anticoagulation Clin ic MD Nathan [facility] (current) use of anticoagulant s 420 [facility] 420 [facility] 195 [phone] [place] [address] Social History Tobacco Use Types Packs/Day Years [...] Routine Atrial fibri llation (H) Ordered: 03/29/2014 Alf (Current) Use Of Anticoagulants documented as of this encounter Visit Diagnoses Diagnosis Atrial fibrillation (H) - Primary 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
--- OUTSIDE RECORDS SUMMARY | 2022-06-23 11:25 | XMS_ITS | Encounter Summary ---
:1950 Author Organization [place] Address [address] [facility] [place] [address] Care Team Providers Name Role Phone Ingrid Santana RN Unavailable Unavailable Momo Forbes Primary Care Provider Reason for Visit Auth/Cert - Closed Specialty Diagnoses / Procedures Referred By Contact Refer red To Contact Surgery Diagnoses S/P Kidney Transplant Uu Periop Procedures COMBINED CYSTOSCOPY, REMOVE STENT(S) 500 [place] [address] Phone: Fax: Referral ID Status Reason Start Date Expiration Date Visits Requ ested Visits Authorized [id number] Closed 1 1 Encounter Details Date Type Department Care Team Description 04/01/2014 Anesthesia Event [facility] Clari Torres MD PeriOp Services [facility] ANESTHESIA 500 [place] [address] [place] [address] [place], [place] [address] (Wo rk) Anesthesia Record Procedure Summary Procedure Name Responsible Anesthesia Start Anesthesia Stop Time Anesthesiologist Time Romoval of Right Clari Torres MD 04/01/14 0829 04/01/14 0911 Double J Stent (Right: Urethra) Events Date Time Event Comment 04/01/2014 [...] by 04/01/14 1212 by Left; Hand; Alcohol; BrannonAddis Fatima S, Injectable; Celso Fletcher APRN CRNA [...] (97.6 ??F) 36.5 ??C (97.7 ??F) Resp: 08 04 16 SpO2: 97% 96% 98% Additional Comments: [...] benefits and alternatives discussed with: patient or pharmacy services representative. I agree with the plan written [...] Intra-op documented in this encounter Care Teams Laborer Ammunition Assembly Relationship Specialty Start Date End Date Momo Forbes PCP - General Family Practice 01/02/14 [place] [phone] Ingrid Santana, RN Registered Nurse Transplant 02/10/12 documented as of this encounter
--- OUTSIDE RECORDS SUMMARY | 2022-06-23 11:25 | XMS_ITS | Encounter Summary ---
:1950 Author Organization [place] Address [address] [place] [address] Care Team Providers Name Role Phone Ingrid Santana RN Unavailable Unavailable Momo Forbes Primary Care Provider Encounter Details Date Type Department Care Team Description 04/22/2014 Orders Only [facility], Joseph Conor [facility], [facility] jm [place] [address] [phone] [place] [address] 003 [place] [address] (Wo rk) Social History Tobacco [...] (ABNORMAL) Tacrolimus level (05/17/2014 8:17 AM CDT) [facility] Method Time Signature Tacrolimus Last 05/16/2014 [facility] Dose 2000 [facility] LABS Tacrolimus 4.4 (L) 5.0 - [facility] Level 15.0 ug/L [facility] LABS Comment: Tacrolimus Reference Range Kidney Transplant [...] Phon e Number [facility] 500 [place], [place] [phone] [place] [address] [facility] LABS (ABNORMAL) Tacrolimus level (05/15/2014 8:15 AM CDT) [facility] gist Method Time Signature Tacrolimus Last 05/14/14 [facility] Dose 2000 [facility] LABS Tacrolimus 4.6 (L) 5.0 - [facility] Level 15.0 ug/L [facility] LABS Comment: Tacrolimus Reference Range Kidney Transplant [...] Phon e Number [facility] 500 [place] [address] [facility] LABS Tacrolimus level (05/10/2014 8:50 AM CDT) [facility] gist Method Time Signature Tacrolimus Not Provided [facility] Last Dose [facility] LABS Tacrolimus 14.3 5.0 - [facility] Level 15.0 ug/L [facility] LABS Comment: Tacrolimus Reference Range Kidney Transplant [...] Phon e Number [facility] 500 [place] [address] [place] [facility] LABS (ABNORMAL) Tacrolimus level (05/07/2014 8:15 AM CDT) [facility] gist Method Time Signature Tacrolimus Last 05/06/14 [facility] Dose 2000 [facility] LABS Tacrolimus 15.9 (H) 5.0 - [facility] Level 15.0 ug/L [facility] LABS Comment: Tacrolimus Reference Range Kidney Transplant [...] Phon e Number [facility] 500 [place], [place] [phone] [place] [address] [facility] LABS Tacrolimus level (05/03/2014 8:13 AM CDT) [facility] gist Method Time Signature Tacrolimus Last [facility] Dose 2000 [facility] LABS Tacrolimus 8.8 5.0 - [facility] Level 15.0 ug/L [facility] LABS Comment: Tacrolimus Reference Range Kidney Transplant [...] Phon e Number [facility] 500 [place], [place] [phone] [place] [address] [facility] LABS Tacrolimus level (04/30/2014 8:20 AM CDT) [facility] gist Method Time Signature Tacrolimus Last 04/29/14 [facility] Dose 2000 [facility] LABS Tacrolimus 12.6 5.0 - [facility] Level 15.0 ug/L [facility] LABS Comment: Tacrolimus Reference Range Kidney Transplant [...] Phon e Number [facility] 500 [place], [place] [phone] [place] [address] [facility] LABS Tacrolimus level (04/26/2014 8:30 AM CDT) [facility] gist Method Time Signature Tacrolimus Last 04/25/14 [facility] Dose 1900 [facility] LABS Tacrolimus 10.1 5.0 - [facility] Level 15.0 ug/L [facility] LABS Comment: Tacrolimus Reference Range Kidney Transplant [...] Phon e Number [facility] 500 [place] [address] [facility] LABS Tacrolimus level (04/24/2014 9:00 AM CDT) [facility] gist Method Time Signature Tacrolimus Last 04/23/14 [facility] Dose 1900 [facility] LABS Tacrolimus 13.1 5.0 - [facility] Level 15.0 ug/L [facility] LABS Comment: Tacrolimus Reference Range Kidney Transplant [...] Phon e Number [facility] 500 [place], [place] [phone] [place] [address] LABS documented in this encounter Visit Diagnoses Not on filedocumented in this encounter Care Teams Orchestra Teacher Relationship Specialty Start Date End Date Momo Forbes PCP - General Family Practice 01/02/14 [facility] [address] [place] [address] Ingrid Santana, RN Registered Nurse Transplant 02/10/12 documented as of this encounter
--- OUTSIDE RECORDS SUMMARY | 2022-06-23 11:26 | XMS_ITS | Encounter Summary ---
:1950 Author Organization [place] Address [address] [place] [address] Care Team Providers Name Role Phone Ingrid Santana RN Unavailable Unavailable Momo Forbes Primary Care Provider Reason for Visit Auth/Cert - Closed Specialty Diagnoses / Procedures Referred By Contact Refer red To Contact Surgery Diagnoses Status Post Kidney Transplant Uu Periop Procedures COMBINED CYSTOSCOPY, REMOVE STENT(S) 500 [place] [address] Phone: Fax: Referral ID Status Reason Start Date Expiration Date Visits Requ ested Visits Authorized [id number] Closed 1 1 Encounter Details Date Type Department Care Team Description 03/11/2014 Hospital Encounter [facility] [place] [facility] Migel Merchant, Same Day Surgery East [address] 500 [facility] 195 [place] [address] [place] [address] (Wo rk) Social History Tobacco Use Types [...] 8:46 CDT AM CDT Migel Merchant MD [facility] POCT Performing Organization Address City/State/ZIP Code Phon e Number FV POINT OF CARE TEST, GLUCOSE POINT OF CARE TEST, GLUCOSE documented in this encounter Visit Diagnoses Not on filedocumented in this encounter Active and Recently Administered Medications Care Teams Accounting Professor Relationship Specialty Start Date End Date Momo Forbes PCP - General Family Practice 01/02/14 [facility] 1999 [place] [address] Ingrid Santana, RN Registered Nurse Transplant 02/10/12 documented as of this encounter
--- OUTSIDE RECORDS SUMMARY | 2022-06-23 11:26 | XMS_ITS | Encounter Summary ---
:1950 Author Organization [place] Address [address] [place] [address]. 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
--- OUTSIDE RECORDS SUMMARY | 2022-06-23 11:26 | XMS_ITS | Encounter Summary ---
:1950 Author Organization [place] Address [address] [place] [address]. [place] [address] Care Team Providers Name Role Phone Ingrid Santana RN Unavailable Unavailable Momo Forbes Primary Care Provider Encounter Details Date Type Department Care Team Description 03/11/2014 Orders Only Transplant Surgery Celina Cole (Primary Clinic A, Dx) 2nd Floor, Clinic 2A [address] [place] [address] [address] [facility] [place] [address] Social History Tobacco Use Types [...] channels documented in this encounter Care Teams Electric Mule Driver Relationship Specialty Start Date End Date Momo Forbes PCP - General Family Practice 01/02/14 [facility] 1999 [place] [address] Ingrid Santana RN Registered Nurse Transplant 02/10/12 documented as of this encounter
--- OUTSIDE RECORDS SUMMARY | 2022-06-23 11:26 | XMS_ITS | Encounter Summary ---
:1950 Author Organization [place] Address [facility] [place] [address] Care Team Providers Name Role Phone Ingrid Santana RN Unavailable Unavailable Momo Forbes Primary Care Provider Reason for Visit Reason Comments Surgical Followup Post op for kidney transplan t POD 16 Encounter Details Date Type Department Care Team Description 02/18/2014 Office Visit Transplant Surgery Migel Merchant S/P jamari y transplant (Primary Dx); Clinic MD Nathan Postop check; 2nd Floor, Clinic 2A [address] [place] Immunosuppression (H); [facility] [place] [facility] 1 95 Atrial fibrillation (H) [phone] [place] [address] [place], [place] (Work) [phone] Social History Tobacco Use [...] Stent: out in ~ 4 weeks 4. Anderson. Follow up next Tuesday for staple removal [...] fibrillation documented in this encounter Care Teams Desizing Pad Operator Relationship Specialty Start Date End Date Momo Forbes PCP - General Family Practice 01/02/[address] [address] Ingrid Santana, RN Registered Nurse Transplant 02/10/12 documented as of this encounter
--- OUTSIDE RECORDS SUMMARY | 2022-06-23 11:26 | XMS_ITS | Encounter Summary ---
:1950 Author Organization [place] Address [address] [place] [address] Care Team Providers Name Role Phone Ingrid Santana RN Unavailable Unavailable Momo Forbes Primary Care Provider Encounter Details Date Type Department Care Team Description 03/11/2014 Anesthesia Event [facility] Aly Esquivel MD PeriOp Services 420 [facility] 500 [facility] 294 [place] [address] [place] [address] [phone] (Wo rk) Anesthesia Record Procedure Summary Procedure [...] benefits and alternatives discussed with: patient or cordage sales representative. Possibility of blood products discussed. [...] on filedocumented in this encounter Care Teams Extension Service Advisor Relationship Specialty Start Date End Date Momo Forbes PCP - General Family Practice 01/02/[address] [address] Ingrid Santana, RN Registered Nurse Transplant 02/10/12 documented as of this encounter
--- OUTSIDE RECORDS SUMMARY | 2022-06-23 11:26 | XMS_ITS | Encounter Summary ---
:1950 Author Organization [place] Address [facility] [place] [address] Care Team Providers Name Role Phone Ingrid Santana RN Unavailable Unavailable Momo Forbes Primary Care Provider Encounter Details Date Type Department Care Team Description 02/18/2014 Orders Only The Transplant Deysi Burns, Kidney replaced by transplan t; 2nd Floor, Clinic 2A S/P kidney transplant [facility] 516 [facility] [address] [place] [address] 88 [place], [place] [phone] [place] [address] (Wo rk) [phone] [phone] Social History Tobacco Use Types Packs/Day Years [...] Results (ABNORMAL) Magnesium (02/18/2014 8:56 AM CDT) P athologist Signature Magnesium 1.5 (L) 1.6 - 2.3 [facility] mg/dL [place] [facility] Specimen Anatomical Collection Method Collection Time Receive d Time (Source) Location / / Volume Laterality Blood specimen 02/18/2014 8:56 AM 014 8:57 (specimen) CDT AM CDT Kaitlynn Leon MD LAB - BLOOD ORDERABLES Performing Organization Address City/[facility]/ZIP Code Phon e Number [facility] [address] LABS (ABNORMAL) Phosphorus (02/18/2014 8:56 AM CDT) athologist Signature Phosphorus 1.9 (L) 2.5 - 4.5 [facility] mg/dL [place] [facility] Specimen Anatomical Collection Method Collection Time Receive d Time (Source) Location / / Volume Laterality Blood specimen 02/18/2014 8:56 AM 014 8:57 (specimen) CDT AM CDT Kaitlynn Leon MD LAB - BLOOD ORDERABLES Performing Organization Address City/State/ZIP Code Phon e Number [facility] 500 [place], [place] [phone] [place] [address] LABS Tacrolimus level (02/18/2014 8:56 AM CDT) [facility] gist Method Time Signature Tacrolimus Last 02/12/14 [facility] Dose 1930 [facility] LABS Tacrolimus 14.1 5.0 - [facility] Level 15.0 ug/L [facility] LABS Comment: Tacrolimus Reference [...] Phon e Number [facility] 500 [place], [place] [phone] [place] [address] LABS (ABNORMAL) CBC with platelets differential (02/18/2014 8:56 AM CDT) [facility] Method Time Signature WBC 6.3 4.0 - [facility] 11.0 [facility] 10e9/L [place] [facility] RBC Count 2.59 (L) 4.4 - 5.9 [facility] 10e12/L [facility] LABS Hemoglobin 7.8 (L) 13.3 - [facility] 17.7 g/dL [facility] LABS Hematocrit 23.7 (L) 40.0 - [facility] 53.0 % [facility] LABS MCV 92 78 - 100 [facility] fl [facility] LABS MCH 30.1 26.5 - [facility] 33.0 pg [facility] LABS MCHC 32.9 31.5 - [facility] 36.5 g/dL [facility] LABS RDW 14.7 10.0 - [facility] 15.0 % [facility] LABS Platelet Count 140 (L) 150 - 450 [facility] 10e9/L [facility] LABS Diff Method Automated [facility] Method [facility] LABS % Neutrophils 84.7 % [facility] LABS % Lymphocytes 3.8 % [facility] LABS % Monocytes 6.0 % [facility] LABS % Eosinophils 4.8 % [facility] LABS % Basophils 0.5 % [facility] LABS % Immature 0.2 % [facility] Granulocytes [facility] LABS Absolute 5.3 1.6 - 8.3 [facility] Neutrophil 10e9/L [facility] LABS Absolute 0.2 (L) 0.8 - 5.3 [facility] Lymphocytes 10e9/L [facility] LABS Absolute 0.4 0.0 - 1.3 [facility] Monocytes 10e9/L [facility] LABS Absolute 0.3 0.0 - 0.7 [facility] Eosinophils 10e9/L [facility] LABS Absolute 0.0 0.0 - 0.2 [facility] Basophils 10e9/L [facility] LABS Abs Immature 0.0 0 - 0.4 [facility] Granulocytes 10e9/L [facility] LABS Specimen Anatomical Collection Method Collection Time Receive d Time (Source) Location / / Volume Laterality Blood specimen 02/18/2014 8:56 AM 014 8:57 (specimen) CDT AM CDT Kaitlynn Leon MD LAB - BLOOD ORDERABLES Performing Organization Address City/State/ZIP Code Phon e Number [phone] [place] [address] LABS (ABNORMAL) Basic metabolic panel (02/18/2014 8:56 AM CDT) [facility] gist Method Time Signature Sodium 141 133 - 144 [facility] mmol/L [facility] LABS Potassium 5.2 3.4 - 5.3 [facility] mmol/L [facility] LABS Chloride 112 (H) 94 - 109 [facility] mmol/L [facility] LABS Carbon Dioxide 18 (L) 20 - 32 [facility] mmol/L [facility] LABS Anion Gap 11 6 - 17 [facility] mmol/L [facility] LABS Glucose 185 (H) 60 - 99 [facility] mg/dL [facility] LABS Urea Nitrogen 24 7 - 30 [facility] mg/dL [facility] LABS Creatinine 1.81 (H) 0.66 - [facility] 1.25 mg/dL [facility] LABS GFR Estimate 38 (L) >60 [facility] mL/min/1.7 [place] m2 CAMPUS LABS GFR Estimate If 46 (L) >60 [facility] Black mL/min/1.7 [place] [address] CAMPUS LABS Calcium 9.4 8.5 - 10.4 [facility] mg/dL [facility] LABS Specimen Anatomical Collection Method Collection Time Receive d Time (Source) Location / / Volume Laterality Blood specimen 02/18/2014 8:56 AM 014 8:57 (specimen) CDT AM CDT Kaitlynn Leon MD LAB - BLOOD ORDERABLES Performing Organization Address City/[facility]/ZIP Code Phon e Number [address] [address] [facility] LABS (ABNORMAL) INR (02/18/2014 8:56 AM CDT) P athologist Signature INR 2.13 (H) 0.86 - 1.14 [facility] LABS Specimen Anatomical Collection Method Collection Time Receive d Time (Source) Location / / Volume Laterality Blood specimen 02/18/2014 8:56 AM 014 8:57 (specimen) CDT AM CDT Kaitlynn Leon MD LAB - BLOOD ORDERABLES Performing Organization Address City/[facility] Code Phon e Number [facility] 500 [place] [address] [facility] LABS documented in this encounter Visit Diagnoses Diagnosis Kidney replaced by transplant S/P kidney transplant Kidney replaced by transplant documented in this encounter Care Teams Case Packer Relationship Specialty Start Date End Date Momo Forbes PCP - General Family Practice 01/02/14 [facility] [address] [place] [address] Ingrid Santana, RN Registered Nurse Transplant 02/10/12 documented as of this encounter
--- OUTSIDE RECORDS SUMMARY | 2022-06-23 11:26 | XMS_ITS | Encounter Summary ---
:1950 Author Organization [place] Address [address] [place] [address]. [place] [address] Care Team Providers Name Role Phone Ingrid [...] 12-lead, tracing only (02/18/2014 9:53 AM CDT) [facility] gist Method Time Signature Interpretation [...] filedocumented in this encounter Care Teams Academic Program Specialist Relationship Specialty Start Date End Date Momo Forbes PCP - General Family Practice 01/02/14 [facility] [address] [place] [address] Ingrid Santana, RN Registered Nurse Transplant 02/10/12 documented as of this encounter
--- OUTSIDE RECORDS SUMMARY | 2022-06-23 11:26 | XMS_ITS | Encounter Summary ---
:1950 Author Organization [place] Address [address] [place] [address] Care Team Providers Name Role Phone Ingrid Santana RN Unavailable Unavailable Momo Forbes Primary Care Provider Encounter Details Date Type Department Care Team Description 03/15/2014 Hospital Encounter [facility] Susy Cole, Lymphocele Unit 2A [facility] 500 [place] [phone] [place], [place] [address] (Wo rk) Social History Tobacco Use Types [...] until healed, wash daily with antibacterial soap. [facility] INTERVENTIONAL RADIOLOGY DEPARTMENT Procedure Physician Andrea Can Date of procedure Telephone numbers: [phone] Tuesday-Tuesday 8:00 am to 4:30 pm [phone] After 4:30 pm Tuesday-Tuesday, Weekends & Holidays. Ask for the Interventional Radiologist metal sprayer production. Someone is available 24 hours/day [facility] toll free number: Tuesday-Tuesday 8:00 am [...] CCRN March 15, 2014 9:20 AM Pager: [phone] [facility] townshipN[facility] NP - 03/15/2014 8:58 AM CDT Discussed order with Dr Merchant today. He would like drain placement if the fluid appears thin. If itappears to be a hematoma then aspiration only. D/w Farid resident and IR staff doing the case. Thanks [facility] BLOOD BANK WORKER ([phone]) Jeanette Lopez RN - 03/15/2014 8:14 AM CDT Prepped and consented, INR 1.1 FSBS is 219 documented in this encounter Procedure Notes Drea Glasgow MD - 03/15/2014 9:23 AM CDT Interventional Radiology Brief Post Procedure Note Pre Procedure Diagnosis: perinephric fluid collection Post Procedure Diagnosis: Same Procedure: Aspiration of RLQ fluid collection over the tranplant kidney Proceduralist: Drea Glasgow MD, Andrea Gibbons PA-C Head Still Operator: None Time Out: Prior to the [...] CDT 10:05 AM CDT Celina Cole MD LAB - [...] Dr. Yossi Cox Resident: Dr. Drea Glasgow Head Still Operator: Andrea Gibbons PA-C. Medications: 1% lidocaine [...] Dr. Yossi Cox Resident: Dr. Drea Glasgow Head Still Operator: Andrea Gibbons PA-C. Medications: 1% lidocaine [...] Component Value Ref Test Analysis Performed At [facility] Range Method Time Signature Specimen Aspirate [facility] Gram Stain Many PMNs seen [facility] No organisms seen MICROBIOLOGY Micro Report FINAL [facility] Status 03/15/2014 MICROBIOLOGY Specimen Anatomical Collection Method Collection Time Receive d Time (Source) Location / / Volume Laterality 03/15/2014 9:05 AM 4 9:59 CDT AM CDT Celina Cole MD LAB - MICRO GENERAL ORDERABL ES Performing Organization Address City/[facility]/ZIP Code Phon e Number [facility] [address] LABS [facility] MICROBIOLOGY (ABNORMAL) Fluid Culture (03/15/2014 9:05 AM CDT) Component Value Ref Test Analysis Performed At Patholo gist Range Method Time Signature Specimen Aspirate [facility] Description [facility] LABS Culture Micro Light growth Coagulase negat jo Staphylococcus Susceptibility testing not [facility] routinely done MICROBIOLOGY (A) Micro Report FINAL 03/18/2014 [facility] Status MICROBIOLOGY Specimen Anatomical Collection Method Collection Time Receive d Time (Source) Location / / Volume Laterality Fluid specimen SPECIMEN OBTAINED 03/15/2014 9:05 AM 9:59 (specimen) BY ASPIRATION / CDT AM CDT Unknown Celina Cole MD LAB - MICRO GENERAL ORDERABL ES Performing Organization Address City/[facility]/ZIP Code Phon e Number [address] LABS [facility] MICROBIOLOGY Triglyceride Fluid (03/15/2014 9:05 AM CDT) Patholo gist Method Time Signature Triglyceride Aspirate [facility] Fluid Source [facility] Triglyceride 94 mg/dL [facility] Fluid [facility] LABS Comment: No reference [...] - BODY FLUIDS ORDERABLES Performing Organization Address City/[facility]/ZIP Code Phon e Number [address] [place] [address] [facility] LABS Cell count with differential fluid (03/15/2014 9:05 AM CDT) Component Value Ref Test Analysis Performed At [facility] Range Method Time Signature Body Fluid Aspirate [facility] Analysis Source [facility] Color Fluid Brown [facility] LABS Appearance Turbid [facility] Fluid [facility] LABS RBC Fluid << Do Not /uL [facility] Report >> [facility] LABS WBC Fluid [address] /uL [facility] LABS % Neutrophils 97 % [facility] Fluid [facility] LABS % Lymphocytes 2 % [facility] Fluid [facility] LABS % Eosinophils 1 % [facility] Fluid [facility] LABS Specimen Anatomical Collection Method Collection Time Receive d Time (Source) Location / / Volume Laterality SPECIMEN OBTAINED 03/15/2014 9:05 AM 02/20 9:56 BY ASPIRATION / CDT AM CDT Unknown Celina Cole MD LAB - BODY FLUIDS ORDERABLES Performing Organization Address City/State/ZIP Code Phon e Number [facility] [address] LABS Lactate dehydrogenase fluid (03/15/2014 9:05 AM CDT) Component Value Ref Test Analysis Performed At [facility] Range Method Time Signature LD Fluid Source Aspirate [facility] LABS Lactate Canceled, Test credited U/L [facility] [...] e Number [facility] 500 [place], [place] [phone] [place] [address] LABS Creatinine fluid (03/15/2014 9:05 AM CDT) [facility] Method Time Signature Creatinine Aspirate [facility] Fluid Source [facility] LABS Creatinine 1.5 mg/dL [facility] LABS Comment: No reference ranges have been [...] - BODY FLUIDS ORDERABLES Performing Organization Address City/[facility]/ZIP Code Phon e Number [facility] 500 [place] [address] [facility] LABS INR point of care (03/15/2014 8:06 AM CDT) athologist Signature INR Point of 1.1 0.86 - POINT OF CARE Care 1.14 TEST, HANDHELD METER Specimen Anatomical Collection Method Collection Time Receive d Time (Source) Location / / Volume Laterality 03/15/2014 8:06 AM 4 8:30 CDT AM CDT Celina Cole MD LAB - BLOOD ORDERABLES Performing Organization Address City/[facility]/ZIP Code Phon e Number [facility] POINT OF CARE TEST, HANDHELD METER POINT OF CARE TEST, HANDHELD METER (ABNORMAL) Glucose by meter (03/15/2014 8:05 AM CDT) athologist Signature Glucose 219 (H) 60 - 99 POINT OF CARE mg/dL TEST, GLUCOSE Specimen Anatomical Collection Method Collection Time Receive d Time (Source) Location / / Volume Laterality 03/15/2014 8:05 AM 4 8:25 CDT AM CDT Celina Cole MD LAB - BEAKER POCT Performing Organization Address City/[facility]/ZIP Code Phon e Number [facility] POINT OF [...] (pre-mix) (COMPLETED) 0810 (Given - Provider: Jeanette Lopez RN) Routine, 3 g, Intravenous, PRE-OP/PRE-TN OCEDURE, Starting on Tue03/15/14 at 0734, For 1 dose, Give dose within 1 hour PRIOR to procedure., Indications: Perioperative Pharmacoprophylaxis, IR Pre-procedure Continuous Medication Order 03/13/2014 03/14/2014 03/15/2014 0.9 % sodium chloride IV solution (CANCELED) 808 (New Bag - Provider: Jeanette Lopez RN) at 75 mL/hr, Intravenous, CONTINUOUS, Un [...] Intra-procedure documented in this encounter Care Teams Toll Mechanic Relationship Specialty Start Date End Date Momo Forbes PCP - General Family Practice 01/02/[address] [address] Ingrid Santana, RN Registered Nurse Transplant 02/10/12 documented as of this encounter
--- OUTSIDE RECORDS SUMMARY | 2022-06-23 11:26 | XMS_ITS | Encounter Summary ---
:1950 Author Organization [place] Address [address] [place] [address] Care Team Providers Name Role Phone Ingrid aSntana RN Unavailable Unavailable Momo Forbes Primary Care Provider Reason for Visit Reason Onset Date Comments Transplant 03/08/2014 Elevated tacrolimus level Encounter Details Date Type Department Care Team Description 03/08/2014 Telephone Nephrology Jeff Giordano (Elevated 2nd Floor, Clinic 2A Almita Palomino RN tacrolimus level) Tommy Wilburn [address] [phone] Social History Tobacco Use Types Packs/Day Years [...] repeat the level. Leonor Giordano R.N. - [phone] documented in this encounter Plan of Treatment Not on filedocumented as of this encounter Visit Diagnoses Not on filedocumented in this encounter Care Teams Outside Parts Salesman Relationship Specialty Start Date End Date Momo Forbes PCP - General Family Practice 01/02/[address] [address] Ingrid Santana, RN Registered Nurse Transplant 02/10/12 documented as of this encounter
--- OUTSIDE RECORDS SUMMARY | 2022-06-23 11:26 | XMS_ITS | Encounter Summary ---
:1950 Author Organization [place] Address [address] [place] [address] Care Team Providers Name Role Phone Ingrid Santana RN Unavailable Unavailable Momo Forbes Primary Care Provider Reason for Visit Reason Onset Date Comments Refill Request 03/04/2014Aug Encounter Details Date Type Department Care Team Description 03/04/2014 Refill The Transplant Kaitlynn Moreno MD Refill Request 2nd Floor, Clinic 2A [facility] [address] [address] [place], [place] [phone] (Wo rk) [phone] [phone] Social History Tobacco Use Types Packs/Day Years [...] Fill Date: 02/08/14 Quantity: 60 [address] [facility] [phone] documented in this encounter Plan of Treatment Not on filedocumented as of this encounter Visit Diagnoses Diagnosis Atrial fibrillation (H) Atrial fibrillation documented in this encounter Care Teams Buffing Wheel Operator Relationship Specialty Start Date End Date Momo Forbes PCP - General Family Practice 01/02/14 [facility] [address] [place] [phone] Ingrid Santana, RN Registered Nurse Transplant 02/10/12 documented as of this encounter
--- OUTSIDE RECORDS SUMMARY | 2022-06-23 11:26 | XMS_ITS | Encounter Summary ---
:1950 Author Organization [place] Address [address] [place] [address] Care Team Providers Name Role Phone Ingrid Santana RN Unavailable Unavailable Momo Forbes Primary Care Provider Reason for Visit Reason Onset Date Comments Refill Request 02/12/2014 clotrimazole Encounter Details Date Type Department Care Team Description 02/12/2014 Refill Nephrology Kaitlynn Leon MD Refill Request 2nd Floor, Clinic 2A [facility] (clotrimazole) [address] [phone] Social History Tobacco Use Types Packs/Day Years Used Date Smoking Tobacco: Former Cigars Quit : 08/22/2006 Smokeless Tobacco: Never Alcohol Use Standard Drinks/Week Comments Yes 0 (1 standard drink = 0.6 oz pure alcoho l) occasional drink. Sex Assigned at Date Recorded Not on file documented as of this encounter Miscellaneous Notes Telephone Encounter - Lianne Braswell RPH - 02/12/2014 8:50 AM CDT Last Fill Date: 02/08/14 Last Fill Quantity: 70 Last Office Visit: 02/11/14 Proactive request, and also requesting a new quantity for a one month supply. Thanks! Lianne Braswell PharmD [facility] Transplant Program [phone] documented in this encounter Plan of Treatment Not on filedocumented as of this encounter Visit Diagnoses Diagnosis S/P kidney transplant Kidney replaced by transplant documented in this encounter Care Teams Ocular Care Technician Relationship Specialty Start Date End Date Momo Forbes PCP - General Family Practice 01/02/14 [facility] [address] [place] [address] Ingrid Santana, RN Registered Nurse Transplant 02/10/12 documented as of this encounter
--- OUTSIDE RECORDS SUMMARY | 2022-06-23 11:26 | XMS_ITS | Encounter Summary ---
:1950 Author Organization [place] Address [address] [place] [address] Care Team Providers Name Role Phone Ingrid Santana RN Unavailable Unavailable Momo Forbes Primary Care Provider Reason for Visit Reason Onset Date Comments Previsit 02/15/[address] Merchant 02/18 Encounter Details Date Type Department Care Team Description 02/15/2014 Telephone Transplant Surgery Radha Acosta LPN Prev isit (Appt with Dr Anthony Merchant 02/18) 2nd Floor, Clinic [address]A [address] [place] [address] Social History Tobacco Use Types [...] filedocumented in this encounter Care Teams Director Safety Council Relationship Specialty Start Date End Date Momo Forbes PCP - General Family Practice 01/02/14 [place] [id number] Ingrid Santana, RN Registered Nurse Transplant 02/10/12 documented as of this encounter
--- OUTSIDE RECORDS SUMMARY | 2022-06-23 11:26 | XMS_ITS | Encounter Summary ---
:1950 Author Organization [place] Address [facility] [place] [address] Care Team Providers Name Role Phone Ingrid Santana RN Unavailable Unavailable Momo Raines Primary Care Provider Reason for Visit Reason Comments Consult consult for afib Encounter Details Date Type Department Care Team Description 02/18/2014 Office Visit [facility], [facility] Hernandez (H) (Primary Dx) Heart MD [facility] Building [place] 4th Floor, Clinic 4B [address] [phone] [place], [place] (Work) [address] [phone] Social History Tobacco Use Types Packs/Day Years [...] Years of Education: 14 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
--- OUTSIDE RECORDS SUMMARY | 2022-06-23 11:26 | XMS_ITS | Encounter Summary ---
:1950 Author Organization [place] Address [address] [place] [address] Care Team Providers Name Role Phone Ingrid Santana RN Unavailable Unavailable Momo Forbes Primary Care Provider Encounter Details Date Type Department Care Team Description 02/19/2014 Orders Only [facility], Joseph Conor [facility] jm OR [address] [phone] [place] [address] [address] [place] [address] (Wo rk) Social History Tobacco [...] Results Tacrolimus level (03/19/2014 9:05 AM CDT) [facility] Method Time Signature Tacrolimus Last 03/18/14 [facility] Dose 2100 [facility] Tacrolimus 13.1 5.0 - [facility] Level [...] Phon e Number [facility] [address] [place] [address] [facility] Tacrolimus level (03/12/2014 9:40 AM CDT) [facility] gist Method Time Signature Tacrolimus Not Provided [facility] Last Dose [facility] Tacrolimus 7.3 5.0 - [facility] Level [...] Phon e Number [facility] [address] [place] [address] [facility] Tacrolimus level (03/08/2014 10:15 AM CDT) [facility] gist Method Time Signature Tacrolimus Last 03/07/14 [facility] Dose 2000 [facility] Tacrolimus 6.1 5.0 - [facility] Level [...] Phon e Number [facility] [address] [place], [place] [phone] [place] [address] [facility] Tacrolimus level (03/06/2014 5:13 PM CDT) [facility] gist Method Time Signature Tacrolimus Last 1400 [facility] Dose 03/05/14 [facility] Tacrolimus 11.3 5.0 - [facility] Level [...] Phon e Number [facility] [address] [place] [address] [facility] Tacrolimus level (03/01/2014 8:10 AM CDT) [facility] gist Method Time Signature Tacrolimus Last 02/28/14 [facility] Dose 1930 [facility] Tacrolimus 10.6 5.0 - [facility] Level [...] Phon e Number [facility] [address] [place], [place] [phone] [place] [place] [address] [facility] Tacrolimus level (02/27/2014 8:15 AM CDT) [facility] gist Method Time Signature Tacrolimus Last 02/26/14 [facility] Dose 2000 [facility] Tacrolimus 11.4 5.0 - [facility] Level [...] Phon e Number [facility] 500 [place], [place] [phone] [place] [address] LABS HLA Lukasz Class II Single Antigen (02/25/2014 10:43 AM CDT) Component Value Ref Test Analysis Performed At [facility] Range Method Time Signature SA2 Test SA [...] Phon e Number [facility] Immunology/Histocompatabil [place], [place] [address] [facility] [address] [facility] [address] Building, Room 3-580 HISTOTRAC HLA Lukasz Class I Single Antigen (02/25/2014 10:43 AM CDT) Component Value Ref Test Analysis Performed At [facility] Avegant Range Method Time Signature SA1 Test SA [...] LAB - IMMUNOLOGY ORDERABLES Performing Organization Address City/[facility]/ZIP Code Phon e Number [facility] Immunology/[place], [place] [address] [facility] 500 [facility] [address] [facility], Room 3-580 HISTOTRAC PRA Interfering Substance SCR (02/25/2014 10:43 AM CDT) Component Value Ref Test Analysis Performed At [facility] WillCall Method Time Signature Interfering Luminex HISTOTRAC Substance [...] LAB - IMMUNOLOGY ORDERABLES Performing Organization Address City/[facility]/ZIP Code Phon e Number [facility] Immunology/[place], [place] [address] [facility] 500 [facility] [address] [facility], Room 3-580 HISTOTRAC Tacrolimus level (02/21/2014 8:45 AM CDT) [facility] Method Time Signature Tacrolimus Last 02/20/14 [facility] Dose 2000 [facility] Tacrolimus 7.9 5.0 - [facility] Level [...] Phon e Number [facility] [address] [place] [address] [facility] documented in this encounter Visit Diagnoses Not on filedocumented in this encounter Care Teams Wind Site Manager Relationship Specialty Start Date End Date Momo Forbes PCP - General Family Practice 01/02/14 [place] [id number] Ingrid Santana, RN Registered Nurse Transplant 02/10/12 documented as of this encounter
--- OUTSIDE RECORDS SUMMARY | 2022-06-23 11:26 | XMS_ITS | Encounter Summary ---
:1950 Author Organization [place] Address [address] [place] [address]. [place] [address] Care Team Providers Name Role Phone Ingrid Santana RN Unavailable Unavailable Momo Forbes Primary Care Provider Encounter Details Date Type Department Care Team Description 03/13/2014 Orders Only Nephrology Shiva Kahn, Atrial fibrillation (H); 2nd Floor, Clinic 2A RN -donor kidney transplant recipie nt Tommy Wilburn [address] [address] [phone] Social History Tobacco Use Types Packs/Day Years [...] transplant documented in this encounter Care Teams Entrepreneur Relationship Specialty Start Date End Date Momo Forbes PCP - General Family Practice 01/02/14 [facility] [address] [place] [address] Ingrid Santana RN Registered Nurse Transplant 02/10/12 documented as of this encounter
--- OUTSIDE RECORDS SUMMARY | 2022-06-23 11:26 | XMS_ITS | Encounter Summary ---
:1950 Author Organization [place] Address [address] [place] [address] Care Team Providers Name Role Phone Ingrid Santana RN Unavailable Unavailable Momo Forbes Primary Care Provider Reason for Visit Reason Onset Date Comments Pre Visit Planning - Done 03/08/2014 Appointment on 03/11/2014 Encounter Details Date Type Department Care Team Description 03/08/2014 Telephone Nephrology Alexandria Caldera Pre Visit Planning - 2nd Floor, Clinic 2A JATIN Done (Appointment on Tommy [place] 03/11/20 14) [address] [address] Social History Tobacco Use Types [...] bring list of medications. Toldpatient to call [phone] if any questions or needs to reschedule. Alexandria Caldera CMA documented in this encounter Plan of Treatment Not on filedocumented as of this encounter Visit Diagnoses Not on filedocumented in this encounter Care Teams Livestock Feeder Relationship Specialty Start Date End Date Momo Forbes PCP - General Family Practice 01/02/14 [facility] [address] [place] [address] Ingrid Santana, RN Registered Nurse Transplant 02/10/12 documented as of this encounter
--- OUTSIDE RECORDS SUMMARY | 2022-06-23 11:26 | XMS_ITS | Encounter Summary ---
:1950 Author Organization [place] Address [address] [place] [address] Care Team Providers Name Role Phone Ingrid Santana RN Unavailable Unavailable Momo Forbes Primary Care Provider Reason for Visit Reason Onset Date Comments Previsit 02/20/2014 Encounter Details Date Type Department Care Team Description 02/20/2014 Telephone Transplant Surgery C nanda Merchant, Migel Evans MD Previsit 2nd Floor, Clinic 2A [address] [address] [facility] [place] [phone] Social History Tobacco Use Types Packs/Day Years [...] filedocumented in this encounter Care Teams Metal Bonding Assembler Relationship Specialty Start Date End Date Momo Forbes PCP - General Family Practice 01/02/14 [facility] [address] [place] [address] Ingrid Santana, RN Registered Nurse Transplant 02/10/12 documented as of this encounter
--- OUTSIDE RECORDS SUMMARY | 2022-06-23 11:26 | XMS_ITS | Encounter Summary ---
:1950 Author Organization [place] Address [facility] [place] [address] Care Team Providers Name Role Phone Ingrid Santana RN Unavailable Unavailable Momo Forbes Primary Care Provider Reason for Visit Reason Comments Eval/Assessment LBA Encounter Details Date Type Department Care Team Description 02/14/2014 Office Visit Specialty Infusion Edward, Naim S, Kidney r eplaced by transplant (Primary Dx); and Procedure Center Immunosuppression (H); Arpita [facility] Hyperka lemia; [facility] Hypophosphatemia; 2nd Floor [address] Atrial fibrillation (H); [address] [place], [place] Anemia; [place] [address] HTN (hypertension) [place], [place] [phone] [address] (Work) [phone] Social History Tobacco Use Types Packs/Day Years [...] Years of Education: 14 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
--- OUTSIDE RECORDS SUMMARY | 2022-06-23 11:26 | XMS_ITS | Encounter Summary ---
:1950 Author Organization [place] Address [facility] [place] [address] Care Team Providers Name Role Phone Ingrid Santana RN Unavailable Unavailable Momo Forbes Primary Care Provider Reason for Visit Reason Onset Date Comments Refill Request 02/15/2014 Encounter Details Date Type Department Care Team Description 02/15/2014 Refill Nephrology Shiva Kahn RN Refill Request 2nd Floor, Clinic 2A [facility] Sanders [place]steen [address] [facility] [place], [place] [phone] [place] [address] [place] [phone] Social History Tobacco Use Types Packs/Day [...] on filedocumented in this encounter Care Teams Python Django Developer Relationship Specialty Start Date End Date Momo Forbes PCP - General Family Practice 01/02/14 [facility] [address] [place] [address] Ingrid Santana RN Registered Nurse Transplant 02/10/12 documented as of this encounter
--- OUTSIDE RECORDS SUMMARY | 2022-06-23 11:26 | XMS_ITS | Encounter Summary ---
:1950 Author Organization [place] Address [facility] [place] [address] Care Team Providers Name Role Phone Ingrid Santana RN Unavailable Unavailable Momo Forbes Primary Care Provider Encounter Details Date Type Department Care Team Description 03/01/2014 Orders Only Nephrology Shiva Kahn RN -donor kidney 2nd Floor, Clinic 2A [facility] transplant recipient Tommy Ruizfelisa [address] [place] [phone] Social History Tobacco Use Types Packs/Day Years [...] transplant documented in this encounter Care Teams Backhaul Driver Relationship Specialty Start Date End Date Momo Forbes PCP - General Family Practice 01/02/[address] [address] Ingrid Santana RN Registered Nurse Transplant 02/10/12 documented as of this encounter
--- OUTSIDE RECORDS SUMMARY | 2022-06-23 11:26 | XMS_ITS | Encounter Summary ---
:1950 Author Organization [place] Address [facility] [address] Care Team Providers Name Role Phone Ingrid Santana RN Unavailable Unavailable Momo Forbes Primary Care Provider Reason for Visit Reason Onset Date Comments Pt. Information/instruction 03/14/2014 Encounter Details Date Type Department Care Team Description 03/14/2014 Telephone [facility] Beto Womack Pt . Interventional Radio martha Dangelo RN Information/instructio 500 [place] [phone] Social History Tobacco Use Types Packs/Day Years [...] on filedocumented in this encounter Care Teams Printed Circuit Board Reworker Relationship Specialty Start Date End Date Momo Forbes PCP - General Family Practice 01/02/14 [facility] [address] [place] [address] Ingrid Santana RN Registered Nurse Transplant 02/10/12 documented as of this encounter
--- OUTSIDE RECORDS SUMMARY | 2022-06-23 11:26 | XMS_ITS | Encounter Summary ---
:1950 Author Organization [place] Address [facility] [place] [address] Care Team Providers Name Role Phone Ingrid Santana RN Unavailable Unavailable Momo Forbes Primary Care Provider Reason for Visit Reason Comments Eval/Assessment LABS, ASSESSMENT, EDUCATION AND DRESSING CHANGE. Encounter Details Date Type Department Care Team Description 02/14/2014 Infusion Therapy Specialty Infusion Kaitlynn Leon MD Kidney replaced by transplant (Primary D x); Visit and Procedure Center [facility] S/P kidney transplant [facility] [address] [phone] [place], [place] (Work) [phone] Social History Tobacco Use [...] CDT Diego Guthrie came to [facility] today for a lab and assess following a Kidney transplant on 02/02/14. Discharge date: 02/08/14 advertising operations coordinator: Leandro Kahn Phone number patient can be reached at: [phone] Physical Assessment: See physical assessment located under [...] Tuesday. 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/General Doc verbalized understanding, all questions answered: YES Discharged [...] Signature INR 2.29 (H) 0.86 - 1.14 [facility] LABS Specimen Anatomical Collection Method Collection Time Receive d Time (Source) Location / / Volume Laterality Blood specimen 02/14/2014 7:51 AM 014 7:58 (specimen) CDT AM CDT Kaitlynn Leon MD LAB - BLOOD ORDERABLES Performing Organization Address City/State/ZIP Code Phon e Number [facility] 500 [place], [place] [phone] [place] [address] LABS Tacrolimus level (02/14/2014 7:51 AM CDT) [facility] gist Method Time Signature Tacrolimus Last 1914 [facility] Dose 02/13/14 [facility] LABS Tacrolimus 7.5 5.0 - [facility] Level 15.0 ug/L [place] [...] e Number [facility] [address] [facility] (ABNORMAL) CBC with platelets differential (02/14/2014 7:51 AM CDT) [facility] gist Method Time Signature WBC 6.9 4.0 - [facility] 11.0 [place] 10e9/L [place] [facility] RBC Count 2.55 (L) 4.4 - 5.9 [facility] 10e12/L [facility] LABS Hemoglobin 7.8 (L) 13.3 - [facility] 17.7 g/dL [facility] LABS Hematocrit 23.4 (L) 40.0 - [facility] 53.0 % [facility] LABS MCV 92 78 - 100 [facility] fl [facility] LABS MCH 30.6 26.5 - [facility] 33.0 pg [facility] LABS MCHC 33.3 31.5 - [facility] 36.5 g/dL [facility] LABS RDW 14.9 10.0 - [facility] 15.0 % [facility] LABS Platelet Count 122 (L) 150 - 450 [facility] 10e9/L [facility] LABS Diff Method Automated [facility] Method [facility] % Neutrophils 88.7 % [facility] LABS % Lymphocytes 2.6 % [facility] LABS % Monocytes 4.5 % [facility] LABS % Eosinophils 3.8 % [facility] % Basophils 0.1 % [facility] % Immature 0.3 % [facility] Granulocytes [facility] Absolute 6.1 1.6 - 8.3 [facility] Neutrophil 10e9/L [facility] Absolute 0.2 (L) 0.8 - 5.3 [facility] Lymphocytes 10e9/L [facility] Absolute 0.3 0.0 - 1.3 [facility] Monocytes 10e9/L [facility] Absolute 0.3 0.0 - 0.7 [facility] Eosinophils 10e9/L [facility] Absolute 0.0 0.0 - 0.2 [facility] Basophils 10e9/L [facility] LABS Abs Immature 0.0 0 - 0.4 [facility] Granulocytes 10e9/L [facility] LABS Specimen Anatomical Collection Method Collection Time Receive d Time (Source) Location / / Volume Laterality Blood specimen 02/14/2014 7:51 AM 014 7:53 (specimen) CDT AM CDT Joseph Quintana MD LAB - BLOOD ORDERABLES Performing Organization Address City/State/ZIP Code Phon e Number [address] LABS (ABNORMAL) Phosphorus (02/14/2014 7:51 AM CDT) P athologist Signature Phosphorus 2.4 (L) 2.5 - 4.5 [facility] mg/dL [place] LABS Specimen Anatomical Collection Method Collection Time Receive d Time (Source) Location / / Volume Laterality Blood specimen 02/14/2014 7:51 AM 014 7:53 (specimen) CDT AM CDT Joseph Quintana MD LAB - BLOOD ORDERABLES Performing Organization Address City/State/ZIP Code Phon e Number [address] LABS Magnesium (02/14/2014 7:51 AM CDT) athologist Signature Magnesium 1.6 1.6 - 2.3 [facility] mg/dL CAMPUS LABS Specimen Anatomical Collection Method Collection Time Receive d Time (Source) Location / / Volume Laterality Blood specimen 02/14/2014 7:51 AM 014 7:53 (specimen) CDT AM CDT Joseph Quintana MD LAB - BLOOD ORDERABLES Performing Organization Address City/[facility]/ZIP Code Phon e Number [facility] [address] [place] [address] [facility] LABS (ABNORMAL) Basic metabolic panel (02/14/2014 7:51 AM CDT) [employer] Method Time Signature Sodium 143 133 - 144 [facility] mmol/L [facility] LABS Potassium 5.4 (H) 3.4 - 5.3 [facility] mmol/L [facility] LABS Chloride 113 (H) 94 - 109 [facility] mmol/L [facility] LABS Carbon Dioxide 20 20 - 32 [facility] mmol/L [facility] LABS Anion Gap 9 6 - 17 [facility] mmol/L [facility] LABS Glucose 193 (H) 60 - 99 [facility] mg/dL [facility] LABS Urea Nitrogen 18 7 - 30 [facility] mg/dL [facility] LABS Creatinine 1.82 (H) 0.66 - [facility] 1.25 mg/dL [facility] LABS GFR Estimate 38 (L) >60 [facility] mL/min/1.7 [facility]2 [facility] LABS GFR Estimate If 46 (L) >60 [facility] Black mL/min/1.7 [place] m2 CAMPUS LABS Calcium 9.2 8.5 - 10.4 [facility] mg/dL [facility] LABS Specimen Anatomical Collection Method Collection Time Receive d Time (Source) Location / / Volume Laterality Blood specimen 02/14/2014 7:51 AM 014 7:53 (specimen) CDT AM CDT Joseph Quintana MD LAB - BLOOD ORDERABLES Performing Organization Address City/[facility]/ZIP Code Phon e Number [facility] [address] [place] [address] [facility] LABS documented in this encounter Visit Diagnoses Diagnosis Kidney replaced by transplant - Primary S/P kidney transplant Kidney replaced by transplant documented in this encounter Care Teams Beekeeper Farmer Relationship Specialty Start Date End Date Momo Forbes PCP - General Family Practice 01/02/14 [facility] [address] [place] [address] Ingrid Santana, RN Registered Nurse Transplant 02/10/12 16 documented as of this encounter
--- OUTSIDE RECORDS SUMMARY | 2022-06-23 11:26 | XMS_ITS | Encounter Summary ---
:1950 Author Organization [place] Address [facility] [place] [address] Care Team Providers Name Role Phone Ingrid Santana RN Unavailable Unavailable Momo Forbes Primary Care Provider Encounter Details Date Type Department Care Team Description 03/18/2014 Orders Only Nephrology Shiva Kahn RN -donor kidney 2nd Floor, Clinic 2A [facility] transplant recipient Tommy Ruizfelisa [address] [place] [phone] Social History Tobacco Use Types Packs/Day Years [...] transplant documented in this encounter Care Teams Websphere Developer Relationship Specialty Start Date End Date Momo Forbes PCP - General Family Practice 01/02/[address] [address] Ingrid Santana RN Registered Nurse Transplant 02/10/12 documented as of this encounter
--- OUTSIDE RECORDS SUMMARY | 2022-06-23 11:26 | XMS_ITS | Encounter Summary ---
:1950 Author Organization [place] Address [facility] [place] [address] Care Team Providers Name Role Phone Ingrid Santana RN Unavailable Unavailable Momo Forbes Primary Care Provider Encounter Details Date Type Department Care Team Description 02/15/2014 Orders Only Nephrology Shiva Kahn RN Kidney replaced by transplant; 2nd Floor, Clinic 2A [facility] kidney transplant Tommy [address] [phone] Social History Tobacco Use Types Packs/Day Years [...] transplant documented in this encounter Care Teams Vb Net Developer Relationship Specialty Start Date End Date Momo Forbes PCP - General Family Practice 01/02/14 [facility] [address] [place] [address] Ingrid Santana RN Registered Nurse Transplant 02/10/12 documented as of this encounter
--- OUTSIDE RECORDS SUMMARY | 2022-06-23 11:26 | XMS_ITS | Encounter Summary ---
:1950 Author Organization [place] Address [facility] [place] [address] Care Team Providers Name Role Phone Ingrid Santana RN Unavailable Unavailable Momo Forbes Primary Care Provider Encounter Details Date Type Department Care Team Description 03/19/2014 Orders Only Nephrology Shiva Kahn RN -donor kidney 2nd Floor, Clinic 2A [facility] transplant recipient Tommy Ruizfelisa [address] [place] [phone] Social History Tobacco Use Types Packs/Day Years [...] transplant documented in this encounter Care Teams Ball Point Splitter Relationship Specialty Start Date End Date Momo Forbes PCP - General Family Practice 01/02/[address] [address] Ingrid Santana RN Registered Nurse Transplant 02/10/12 documented as of this encounter
--- OUTSIDE RECORDS SUMMARY | 2022-06-23 11:26 | XMS_ITS | Encounter Summary ---
:1950 Author Organization [place] Address [facility] [place] [address] Care Team Providers Name Role Phone Ingrid Santana RN Unavailable Unavailable Momo Forbes Primary Care Provider Encounter Details Date Type Department Care Team Description 03/14/2014 Orders Only Nephrology Shiva Kahn RN -donor kidney 2nd Floor, Clinic 2A [facility] transplant recipient Tommy Ruizfelisa [address] [place] [phone] Social History Tobacco Use Types Packs/Day Years [...] transplant documented in this encounter Care Teams Waste/Materials Exchange Specialist Relationship Specialty Start Date End Date Momo Forbes PCP - General Family Practice 01/02/[address] [address] Ingrid Santana RN Registered Nurse Transplant 02/10/12 documented as of this encounter
--- OUTSIDE RECORDS SUMMARY | 2022-06-23 11:26 | XMS_ITS | Encounter Summary ---
:1950 Author Organization [place] Address [address] [place] [address]. [place] [address] Care Team Providers Name Role Phone Ingrid Santana RN Unavailable Unavailable Momo Forbes Primary Care Provider Encounter Details Date Type Department Care Team Description 02/18/2014 Orders Only Nephrology Shiva Kahn RN -donor kidney transplant recipie nt (Primary Dx); 2nd Floor, Clinic 2A [facility] Kidney replaced by transplant; Tommy Ruizensteen [address] [facility] S/P kidney transplant Building [address] [place] [phone] Social History Tobacco Use Types Packs/Day Years [...] transplant documented in this encounter Care Teams Production Reproduction Manager Relationship Specialty Start Date End Date Momo Forbes PCP - General Family Practice 01/02/14 [facility] [address] [place] [address] Ingrid Santana RN Registered Nurse Transplant 02/10/12 documented as of this encounter
--- OUTSIDE RECORDS SUMMARY | 2022-06-23 11:26 | XMS_ITS | Encounter Summary ---
:1950 Author Organization [place] Address [address] [facility] [place] [address] Care Team Providers Name Role Phone Ingrid Santana RN Unavailable Unavailable Momo Forbes Primary Care Provider Reason for Visit Reason Comments Surgical Followup kidney tx 02/02/14 Encounter Details Date Type Department Care Team Description 02/25/2014 Office Visit Transplant Surgery Finger, Migel Hypophosp hatemia (Primary Dx); Clinic MD Nathan Kidney replaced by transplant; 2nd Floor, Clinic [address] [place] [address] -donor kidney transp lant recipient; [address] 1 95 High risk medications (not anticoagulant s) long-term use; Building [facility] (current) use of anticoagulant s; [address] [place], [place]; [place] [id number] Orthostatic hypotension [facility] [address] [place], [place] (Work) [address] Social History Tobacco Use [...] 84/47 02/25/2014 1:23 PM left arm lilli ding CDT Pulse 80 02/25/2014 1:21 PM CDT [...] Somewhat lethargic. Otherwise well Abd mod obesity. Giddings in place. Drain with small amt of [...] will give mag and phos prescription. 5. Giddings - Out today 6 Drain -- out [...] ??? Surgical Followup kidney tx 02/02/14 Mr. 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 PHOSPHORUS Routine 02/25/2014 [...] Glucose by meter (02/25/2014 1:32 PM CDT) athologist Signature Glucose 297 (H) 60 - 99 POINT OF CARE mg/dL TEST, GLUCOSE Specimen Anatomical Collection Method Collection Time Receive d Time (Source) Location / / Volume Laterality 02/25/2014 1:32 PM 4 1:40 CDT PM CDT Migel [facility] POCT Performing Organization Address City/State/ZIP Code Phon e Number FV POINT OF CARE TEST, GLUCOSE POINT OF CARE TEST, GLUCOSE BK virus PCR quantitative (02/25/2014 10:54 AM CDT) Component Value Ref Test Analysis Performed At Patholo gist Range Method Time [facility] BK Virus DNA Plasma, EDTA [facility] Quant Source anticoagulant [facility] BK Virus DNA <390 [facility] Quant Unit: cpy/mL [facility] Copy/mL [place] [facility] BK Virus DNA <2.6 [facility] Quant Log Unit: log [place] (Note) [place] [facility] INTERPRETIVE INFORMATION: BK Virus, Quantitation by [...] methodologies. Test developed and characteristics determined by [employer]. See Compliance Statement A: [employer]/ BK Virus DNA Not Detected [facility] Quant Interp Reference range: Not Detected [place] (Note) [place] [facility] Performed by [employer], [address] [place] [id number] [email or web address], Kj Mcmillan MD, Lab. Director Specimen Anatomical Collection Method Collection Time Receive d Time (Source) Location / / Volume Laterality Blood specimen 02/25/2014 10:54 4 (specimen) AM CDT 10:55 AM CDT Deysi Alicea MD LAB - MICRO GENERAL ORDERABL ES Performing Organization Address City/State/ZIP Code Phon e Number [phone] [place] [address] LABS Immunology recipient: SOT PRA (Post Tx for Donor Spec Antibody) (02/25/2014 10:54 AM CDT) [facility] Method Time Signature Immunology PRA [facility] Test Name [facility] Immunology Specimen [facility] Result received - [facility] LABS report to follow upon completion. Specimen Anatomical Collection Method Collection Time Receive d Time (Source) Location / / Volume Laterality Blood specimen 02/25/2014 10:54 4 (specimen) AM CDT 10:55 AM CDT Deysi Alicea MD LAB - IMMUNOLOGY ORDERABLES Performing Organization Address City/State/ZIP Code Phon e Number [facility] [address] LABS (ABNORMAL) INR (02/25/2014 10:53 AM CDT) athologist Signature INR 2.39 (H) 0.86 - 1.14 [facility] Specimen Anatomical Collection Method Collection Time Receive d Time (Source) Location / / Volume Laterality Blood specimen 02/25/2014 10:53 4 (specimen) AM CDT 10:54 AM CDT Migel Merchant MD LAB - BLOOD ORDERABLES Performing Organization Address City/[facility]/ZIP Code Phon e Number [facility] [address] LABS (ABNORMAL) Magnesium (02/25/2014 10:53 AM CDT) athologist Signature Magnesium 1.5 (L) 1.6 - 2.3 [facility] mg/dL [place] [facility] Specimen Anatomical Collection Method Collection Time Receive d Time (Source) Location / / Volume Laterality Blood specimen 02/25/2014 10:53 4 (specimen) AM CDT 10:54 AM CDT Deysi Alicea MD LAB - BLOOD ORDERABLES Performing Organization Address City/[facility]/ZIP Code Phon e Number [facility] [address] LABS (ABNORMAL) Phosphorus (02/25/2014 10:53 AM CDT) athologist Signature Phosphorus 1.3 (L) 2.5 - 4.5 [facility] mg/dL [place] [facility] Specimen Anatomical Collection Method Collection Time Receive d Time (Source) Location / / Volume Laterality Blood specimen 02/25/2014 10:53 4 (specimen) AM CDT 10:54 AM CDT Deysi Ailcea MD LAB - BLOOD ORDERABLES Performing Organization Address City/State/ZIP Code Phon e Number [address] LABS Mycophenolic acid (02/25/2014 10:53 AM [...] e Number [facility] [address] [facility] [place] [facility] Tacrolimus level (02/25/2014 10:53 AM CDT) [facility] Method Time Signature Tacrolimus 02/24/14 ?1999 [facility] Last Dose CORRECTED ON 02/25 AT 1055: PREVIOUSLY REPORTED 1999 [facility] [place] [facility] Tacrolimus 9.1 5.0 - [facility] Level 15.0 ug/L [facility] Comment: Tacrolimus Reference Range Kidney [...] e Number [facility] [address] [place] [address] [facility] LABS (ABNORMAL) Basic metabolic panel (02/25/2014 10:53 AM CDT) [facility] Method Time Signature Sodium 137 133 - 144 [facility] mmol/L [facility] Potassium 4.6 3.4 - 5.3 [facility] mmol/L [facility] Chloride 108 94 - 109 [facility] mmol/L [facility] Carbon Dioxide 19 (L) 20 - 32 [facility] mmol/L [facility] [place] [facility] Anion Gap 10 6 - 17 [facility] mmol/L [facility] Glucose 217 (H) 60 - 99 [facility] mg/dL [facility] Urea Nitrogen 13 7 - 30 [facility] mg/dL [facility] Creatinine 1.48 (H) 0.66 - [facility] 1.25 mg/dL [facility] [place] [facility] GFR Estimate 48 (L) >60 [facility] mL/min/1.7 [place] m2 [facility]AMP[facility] GFR Estimate If 58 (L) >60 [facility] Black mL/min/1.7 [place] m2 [facility]AMP[facility] Calcium 9.6 8.5 - 10.4 [facility] mg/dL [facility] Specimen Anatomical Collection Method Collection Time Receive d Time (Source) Location / / Volume Laterality Blood specimen 02/25/2014 10:53 4 (specimen) AM CDT 10:54 AM CDT Deysi Alicea MD LAB - BLOOD ORDERABLES Performing Organization Address City/State/ZIP Code Phon e Number [address] [address] [place] [facility] (ABNORMAL) CBC with platelets differential (02/25/2014 10:53 AM CDT) [facility] Method Time Signature WBC 4.9 4.0 - [facility] 11.0 [facility] 10e9/L [facility]AMP[facility] RBC Count 2.67 (L) 4.4 - 5.9 [facility] 10e12/L [facility] Hemoglobin 7.8 (L) 13.3 - [facility] 17.7 g/dL [facility] Hematocrit 23.5 (L) 40.0 - [facility] 53.0 % [facility] MCV 88 78 - 100 [facility] fl [facility] MCH 29.2 26.5 - [facility] 33.0 pg [facility] MCHC 33.2 31.5 - [facility] 36.5 g/dL [facility] RDW 14.3 10.0 - [facility] 15.0 % [facility] Platelet Count 179 150 - 450 [facility] 10e9/L [facility] Diff Method Automated [facility] Method [facility] % Neutrophils 89.4 % [facility] % Lymphocytes 3.9 % [facility] % Monocytes 5.1 % [facility] % Eosinophils 1.2 % [facility] % Basophils 0.2 % [facility] % Immature 0.2 % [facility] Granulocytes [facility] Absolute 4.4 1.6 - 8.3 [facility] Neutrophil 10e9/L [facility] Absolute 0.2 (L) 0.8 - 5.3 [facility] Lymphocytes 10e9/L [facility] Absolute 0.3 0.0 - 1.3 [facility] Monocytes 10e9/L [facility] Absolute 0.1 0.0 - 0.7 [facility] Eosinophils 10e9/L [facility] Absolute 0.0 0.0 - 0.2 [facility] Basophils 10e9/L [facility] Abs Immature 0.0 0 - 0.4 [facility] Granulocytes 10e9/L [facility] Specimen Anatomical Collection Method Collection Time Receive d Time (Source) Location / / Volume Laterality Blood specimen 02/25/2014 10:53 4 (specimen) AM CDT 10:54 AM CDT Deysi Alicea MD LAB - BLOOD ORDERABLES Performing Organization Address City/State/ZIP Code Phon e Number [facility] [address] [place] [address] [facility] documented in this encounter Visit Diagnoses Diagnosis 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 replaced by transplant -donor kidney transplant recipie nt Kidney replaced by transplant High risk medications (not anticoagulant s) long-term use Encounter for long-term (current) use of other medications [facility] (current) use of anticoagulant s Long-term (current) use of anticoagulant s Hypomagnesemia Disorders of magnesium metabolism Orthostatic hypotension documented in this encounter Care Teams Ms Sql Dba Relationship Specialty Start Date End Date Momo Forbes PCP - General Family Practice 01/02/[address] [address] Ingrid Santana, RN Registered Nurse Transplant 02/10/12 documented as of this encounter
--- OUTSIDE RECORDS SUMMARY | 2022-06-23 11:27 | XMS_ITS | Encounter Summary ---
:1950 Author Organization [place] Address [facility] [place] [address] Care Team Providers Name Role Phone Ingrid Santana RN Unavailable Unavailable Momo Forbes Primary Care Provider Reason for Visit Reason Comments Eval/Assessment LBA Encounter Details Date Type Department Care Team Description 02/11/2014 Infusion Therapy Specialty Infusion Finger, Migel Mac y replaced by Visit and Procedure MD Nathan transplant (Primary Center [address] [place] [address] Dx[facility] [place] [address] 5 [facility] 2nd Floor [address] [phone] [place], [place] (Work) [phone] Social History Tobacco Use [...] in this encounter Patient Instructions Patient InstructionsGladis Olvera, RN - 02/11/2014 4:56 PM CDT Dear Diego Guthrie Thank you for choosing [facility] ([facility]) for your transplant cares. The [...] the result at your appointment in [facility] tomorrow. We look forward in seeing you on your next appointment here at [facility]. Please don???t hesitate to callus at [phone] to reschedule any of your appointments or to speak with one of the [facility] registered nurses. It was a pleasure taking care of you today. Sincerely, Gladis Olvera RN [facility] [address] [place] [address]. [place] [address] documented in this encounter Progress Notes Gladis Olvera RN - 02/11/2014 8:43 AM CDT Diego Guthrie came to [facility] today for a lab and assess following a Kidney transplant on 02/02/14. Discharge date: 02/08/14 litigation coordinator: Leandro Kahn Phone number patient can be reached at: [phone] Physical Assessment: See physical assessment located under Document Flowsheets. Incision site: Dry dressing with modesta. Dressing changed. Small amt oozing, Small amt ecchymosis. Pt instructed on signs/symptoms of infection. Some swelling under incision, pt has known hematoma andwill have a renal ultrasound today at 2pm. Lines: MARGARET drain to bulb suction, serosanguinous drainage. 20 ml at [facility] appointment today. Gibbs: n/a Urine clarity: clear per patient report Hydration: discussed drinking 2-3 L daily Nutrition: Pt states appetite is improving Last BM: 02/10/14 evening Pain: 2 at rest, 5 with activity. Pain adequately controlled with home medications Laboratory tests: Standard labs drawn. Plan of care for today: Pt presents to [facility] for Labs & Assessment following Kid Txp on 02/02/14. Pt's creatinine up to 1.97 today, but ok per Dr. Leon considering the complications with transplant. Hgb 7.4 and pt c/o slight fatigue. Discussed with Dr. Leon and will hold off on a transfusion for now, but will continue to monitor hgb at [facility] appointments over the next 2 days. INR 2.23, EKG obtained and pt found to be in Normal Sinus Rhythm. Pt will remain on coumadin for now and will follow up with a ore roaster near [facility]. Continue daily INRs while pt is coming to [facility]. Pt's MARGARET continues to drain more than [...] Plan Pt will follow up with [facility] tomorrow. 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/Solar Technician verbalized understanding, all questions answered: YES Discharged from unit at 1200 with whom: significant other to home. Gladis Olvera, BOGDAN documented in this encounter Plan of Treatment [...] Results Tacrolimus level (02/11/2014 7:40 AM CDT) [facility] gist Method Time Signature Tacrolimus Last 02/10/14 [facility] Dose 2000 [facility] Tacrolimus 12.2 5.0 - [facility] Level 15.0 ug/L [facility] [...] e Number [facility] [address] [place], [place] [id number] [place] [address] LABS (ABNORMAL) CBC with platelets differential (02/11/2014 7:40 AM CDT) [facility] gist Method Time Signature WBC 4.4 4.0 - [facility] 11.0 [facility] 10e9/L [place] [facility] RBC Count 2.39 (L) 4.4 - 5.9 [facility] 10e12/L [facility] Hemoglobin 7.4 (L) 13.3 - [facility] 17.7 g/dL [facility] Hematocrit 22.1 (L) 40.0 - [facility] 53.0 % [facility] MCV 93 78 - 100 [facility] fl [facility] MCH 31.0 26.5 - [facility] 33.0 pg [facility] MCHC 33.5 31.5 - [facility] 36.5 g/dL [facility] RDW 14.7 10.0 - [facility] 15.0 % [facility] Platelet Count 83 (L) 150 - 450 [facility] 10e9/L [facility] Diff Method Automated [facility] Method [facility] % Neutrophils 80.4 % [facility] % Lymphocytes 8.2 % [facility] % Monocytes 5.2 % [facility] % Eosinophils 5.7 % [facility] % Basophils 0.0 % [facility] % Immature 0.5 % [facility] Granulocytes [facility] Absolute 3.5 1.6 - 8.3 [facility] Neutrophil 10e9/L [facility] Absolute 0.4 (L) 0.8 - 5.3 [facility] Lymphocytes 10e9/L [facility] Absolute 0.2 0.0 - 1.3 [facility] Monocytes 10e9/L [facility] Absolute 0.3 0.0 - 0.7 [facility] Eosinophils 10e9/L [facility] Absolute 0.0 0.0 - 0.2 [facility] Basophils 10e9/L [facility] Abs Immature 0.0 0 - 0.4 [facility] Granulocytes 10e9/L [facility] Specimen Anatomical Collection Method Collection Time Receive d Time (Source) Location / / Volume Laterality Blood specimen 02/11/2014 7:40 AM 014 7:41 (specimen) CDT AM CDT Kaitlynn Leon MD LAB - BLOOD ORDERABLES Performing Organization Address City/[facility]/ZIP Code Phon e Number [facility] [address] LABS (ABNORMAL) Phosphorus (02/11/2014 7:40 AM CDT) athologist Signature Phosphorus 1.9 (L) 2.5 - 4.5 [facility] mg/dL [place] [facility] Specimen Anatomical Collection Method Collection Time Receive d Time (Source) Location / / Volume Laterality Blood specimen 02/11/2014 7:40 AM 014 7:41 (specimen) CDT AM CDT Kaitlynn Leon MD LAB - BLOOD ORDERABLES Performing Organization Address City/[facility]/ZIP Code Phon e Number [address] LABS Magnesium (02/11/2014 7:40 AM CDT) athologist Signature Magnesium 1.9 1.6 - 2.3 [facility] mg/dL [place] [facility] Specimen Anatomical Collection Method Collection Time Receive d Time (Source) Location / / Volume Laterality Blood specimen 02/11/2014 7:40 AM 014 7:41 (specimen) CDT AM CDT Kaitlynn Leon MD LAB - BLOOD ORDERABLES Performing Organization Address City/[facility]/ZIP Code Phon e Number [address] LABS (ABNORMAL) Basic metabolic panel (02/11/2014 7:40 AM CDT) [facility] Method Time Signature Sodium 142 133 - 144 [facility] mmol/L [facility] Potassium 5.4 (H) 3.4 - 5.3 [facility] mmol/L [facility] Chloride 113 (H) 94 - 109 [facility] mmol/L [facility] Carbon Dioxide 22 20 - 32 [facility] mmol/L [facility] Anion Gap 8 6 - 17 [facility] mmol/L [facility] Glucose 155 (H) 60 - 99 [facility] mg/dL [facility] Urea Nitrogen 31 (H) 7 - 30 [facility] mg/dL [facility] Creatinine 1.97 (H) 0.66 - [facility] 1.25 mg/dL [facility] GFR Estimate 35 (L) >60 [facility] mL/min/1.7 [place] m2 [facility]AMPUS LABS GFR Estimate If 42 (L) >60 [facility] Black mL/min/1.7 [place] [address] CAMPUS LABS Calcium 9.1 8.5 - 10.4 [facility] mg/dL [facility] Specimen Anatomical Collection Method Collection Time Receive d Time (Source) Location / / Volume Laterality Blood specimen 02/11/2014 7:40 AM 014 7:41 (specimen) CDT AM CDT Kaitlynn Leon MD LAB - BLOOD ORDERABLES Performing Organization Address City/State/ZIP Code Phon e Number [id number] [place], [place] [id number] [facility] documented in this encounter Visit Diagnoses Diagnosis Kidney replaced by transplant - Primary documented in this encounter Care Teams Nurse Clinical Relationship Specialty Start Date End Date Momo Forbes PCP - General Family Practice 01/02/14 [facility] [address] [place] [address] Ingrid Santana, RN Registered Nurse Transplant 02/10/12 documented as of this encounter
--- OUTSIDE RECORDS SUMMARY | 2022-06-23 11:27 | XMS_ITS | Encounter Summary ---
:1950 Author Organization [place] Address [facility] [place] [address] Care Team Providers Name Role Phone Ingrid Santana RN Unavailable Unavailable Momo Forbes Primary Care Provider Reason for Visit Reason Comments Eval/Assessment LBA Encounter Details Date Type Department Care Team Description 02/09/2014 Infusion Therapy Specialty Infusion Finger, Migel Mac y replaced by transplant (Primary Dx); Visit and Procedure MD [facility] [address] [place] [address] 19 5 [facility] 2nd Floor [address] [phone] [place], [place] (Work) [phone] Social History Tobacco Use [...] Dear Diego Guthrie Thank you for choosing [facility] ([facility]) for your transplant cares. The [...] Bring Humulog Insulin Pen to your future [facility] appointments. 5) Return to [facility] tomorrow at 07:30 a.m We look forward in seeing you on your next appointment here at [facility]. Please don???t hesitate to callus at [phone] to reschedule any of your appointments or to speak with one of the [facility] registered nurses. It was a pleasure taking care of you today. Sincerely, MARC HERNANDEZ RN [facility] [address] [address] Coumadin Information: Keep Your Diet Steady Keep [...] 7:31 AM CDT Diego Guthrie came to [facility] today for a lab and assess following a Kidney transplant on 02/02/14. Discharge date: 02/08/14 search coordinator: Leandro Kahn Phone number patient can be reached at: [phone] Physical Assessment: See physical assessment located under Document Flowsheets. Incision site: W/modesta c/d/i. Pt oozing scant amount serosang drainage. Site dressed w/ABD. Lines: MARGARET draining sero-sang: Last nite output:40ml, this morning's output: 30ml. Per Dr Codyto remain in at least one more day. [...] s/s insulin this morning/nor brought insulin to [facility] appt. I reviewed w/pt the need to monitor BG's QID and to bring Insulin to future [facility] appt's. Last BM: yesterday, loose, pt stopped stool softeners. Pain: Incisional pain rated a 5 , declines pain meds at this time. Laboratory tests: Standard labs drawn. Plan of care for today: 1) Labs/Nausea/Orthostatic BP/MARGARET output reviewed with Dr Hernandes, orders: Increase Zofran to 8mg every 6-8 hours, MARGARET to remain in another day, Administer 1L of NS today, d/c pt from [facility] post 1L NS, return to [facility] tomorrow for LBA, No change [...] and Phone numbers to call with concenrs (search coordinator, [facility] [address] [facility]) Patient verbalized understanding and all questions answered. Drug level: Prograf level today reviewed with Dr Hernandes who gave orders to no change in dose. INR of 1.59 also reviewed w/Dr Hernandes who gave orders to increase Coumadin to 7.5mg QD. Patient was updated with this information and verbalized understanding. Discharge Plan Pt will follow up with [facility] tomorrow at 0730. Bring Humulog Insulin Pen to [facility] today (pt did not bring to today's appt). 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/Multimedia Instructional Designer verbalized understanding, all questions answered: YES [...] Results (ABNORMAL) INR (02/09/2014 8:30 AM CDT) P athologist Signature INR 1.59 (H) 0.86 - 1.14 [facility] LABS Specimen Anatomical Collection Method Collection Time Receive d Time (Source) Location / / Volume Laterality Blood specimen 02/09/2014 8:30 AM 014 (specimen) CDT 11:07 AM CDT Migel Merchant MD LAB - BLOOD ORDERABLES Performing Organization Address City/State/ZIP Code Phon e Number [facility] [address] [place], [place] [phone] [place] [address] LABS Tacrolimus level (02/09/2014 7:40 AM CDT) [facility] gist Method Time Signature Tacrolimus Not Provided [facility] Last Dose [facility] LABS Tacrolimus 8.0 5.0 - [facility] Level 15.0 ug/L [facility] Comment: Tacrolimus Reference Range Kidney [...] e Number [facility] [address] [place], [place] [id number] [place] [address] LABS (ABNORMAL) CBC with platelets differential (02/09/2014 7:40 AM CDT) [facility] Method Time Signature WBC 5.8 4.0 - [facility] 11.0 [place] 10e9/L [place] [facility]S RBC Count 2.66 (L) 4.4 - 5.9 [facility] 10e12/L [facility]S Hemoglobin 8.2 (L) 13.3 - [facility] 17.7 g/dL [facility]S Hematocrit 24.4 (L) 40.0 - [facility] 53.0 % [facility] LABS MCV 92 78 - 100 [facility] fl [facility]S MCH 30.8 26.5 - [facility] 33.0 pg [facility] LABS MCHC 33.6 31.5 - [facility] 36.5 g/dL [facility] LABS RDW 14.6 10.0 - [facility] 15.0 % [facility]S Platelet Count 78 (L) 150 - 450 [facility] 10e9/L [facility] Diff Method Automated [facility] Method [facility] % Neutrophils 84.8 % [facility] % Lymphocytes 5.2 % [facility] % Monocytes 6.9 % [facility] % Eosinophils 2.9 % [facility] % Basophils 0.0 % [facility] % Immature 0.2 % [facility] Granulocytes [facility] Absolute 4.9 1.6 - 8.3 [facility] Neutrophil 10e9/L [facility] Absolute 0.3 (L) 0.8 - 5.3 [facility] Lymphocytes 10e9/L [facility] Absolute 0.4 0.0 - 1.3 [facility] Monocytes 10e9/L [facility] Absolute 0.2 0.0 - 0.7 [facility] Eosinophils 10e9/L [facility] Absolute 0.0 0.0 - 0.2 [facility] Basophils 10e9/L [facility] Abs Immature 0.0 0 - 0.4 [facility] Granulocytes 10e9/L [facility] Specimen Anatomical Collection Method Collection Time Receive d Time (Source) Location / / Volume Laterality Blood specimen 02/09/2014 7:40 AM 014 7:49 (specimen) CDT AM CDT Migel Merchant MD LAB - BLOOD ORDERABLES Performing Organization Address City/State/ZIP Code Phon e Number [phone] [place] [address] LABS (ABNORMAL) Phosphorus (02/09/2014 7:40 AM CDT) P athologist Signature Phosphorus 2.0 (L) 2.5 - 4.5 [facility] mg/dL CAMPUS LABS Specimen Anatomical Collection Method Collection Time Receive d Time (Source) Location / / Volume Laterality Blood specimen 02/09/2014 7:40 AM 014 7:49 (specimen) CDT AM CDT Migel Merchant MD LAB - BLOOD ORDERABLES Performing Organization Address City/[facility]/ZIP Code Phon e Number [facility] [address] LABS Magnesium (02/09/2014 7:40 AM CDT) P athologist Signature Magnesium 1.9 1.6 - 2.3 [facility] mg/dL CAMPUS LABS Specimen Anatomical Collection Method Collection Time Receive d Time (Source) Location / / Volume Laterality Blood specimen 02/09/2014 7:40 AM 014 7:49 (specimen) CDT AM CDT Migel Merchant MD LAB - BLOOD ORDERABLES Performing Organization Address City/State/ZIP Code Phon e Number [facility] [address] [place], [place] [phone] [place] [address] LABS (ABNORMAL) Basic metabolic panel (02/09/2014 7:40 AM CDT) Patholo gist Method Time Signature Sodium 145 (H) 133 - 144 [facility] mmol/L [facility] LABS Potassium 4.5 3.4 - 5.3 [facility] mmol/L [facility]S Chloride 110 (H) 94 - 109 [facility] mmol/L [facility]S Carbon Dioxide 24 20 - 32 [facility] mmol/L [facility] LABS Anion Gap 10 6 - 17 [facility] mmol/L [facility] LABS Glucose 137 (H) 60 - 99 [facility] mg/dL [facility]S Urea Nitrogen 48 (H) 7 - 30 [facility] mg/dL [facility] LABS Creatinine 2.02 (H) 0.66 - [facility] 1.25 mg/dL [facility] LABS GFR Estimate 34 (L) >60 [facility] mL/min/1.7 [place] m2 CAMPUS LABS GFR Estimate If 41 (L) >60 [facility] Black mL/min/1.7 [place] m2 CAMPUS LABS Calcium 9.2 8.5 - 10.4 [facility] mg/dL [facility] LABS Specimen Anatomical Collection Method Collection Time Receive d Time (Source) Location / / Volume Laterality Blood specimen 02/09/2014 7:40 AM 014 7:49 (specimen) CDT AM CDT Migel Merchant MD LAB - BLOOD ORDERABLES Performing Organization Address City/State/ZIP Code Phon e Number [facility] [address] [place] [address] [facility] LABS documented in this encounter [...] dose documented in this encounter Care Teams Floor Coverer Apprentice Relationship Specialty Start Date End Date Momo Forbes PCP - General Family Practice 01/02/14 [facility] [address] [place] [address] Ingrid Santana, RN Registered Nurse Transplant 02/10/12 documented as of this encounter
--- OUTSIDE RECORDS SUMMARY | 2022-06-23 11:27 | XMS_ITS | Encounter Summary ---
:1950 Author Organization [place] Address [address] [place] [address] Care Team Providers Name Role Phone Ingrid Santana RN Unavailable Unavailable Momo Forbes Primary Care Provider Reason for Referral CV Cardio consult - Closed Specialty Diagnoses / Procedures Referred By Contact Refer red To Contact Diagnoses Atrial fibrillation (H) Kaitlynn Leon MD [facility] [place] [address] [place] [address] Fax: Referral ID Status Reason Start Date Expiration Date Visits Requ ested Visits Authorized [id number] Closed 02/12/2014 08/11/2014 1 1 Reason for Visit Reason Comments RECHECK Encounter Details Date Type Department Care Team Description 02/12/2014 Office Visit Specialty Infusion Kaitlynn Leon, S/P kidn ey transplant (Primary Dx); and Procedure Center Atrial fibrillation (H); [facility] Hypopho sphatemia; [facility] Nausea; 2nd Floor [address] Immunosuppression (H) 516 [facility] [address] [place], [place] [phone] [address] (Work) [phone] Social History Tobacco Use Types Packs/Day Years [...] Dear Diego Guthrie Thank you for choosing [facility] ([facility]) for your transplant cares. The following information is a summary of our appointment as well as important reminders. Please make sure your phone is available today because I will call to update you with your anti-rejection drug levels and possibly make changes to your anti- rejection dosages. Additional information: -Decrease your coumadin dose to 5 mg every evening -Please return to [facility] on for Labs & assessment -Call us or Leandro Kahn with any questions. -Your Home Care Nurse should begin visits on TuesdayFebruary 14. If you do not hear from them by Tuesday morning, try to reach them at [phone]. We look forward in seeing you on your next appointment here at [facility]. Please don???t hesitate to callus at [phone] to reschedule any of your appointments or to speak with one of the [facility] registered nurses. It was a pleasure taking care of you today. Sincerely, Gladis Olvera, BOGDAN 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
--- OUTSIDE RECORDS SUMMARY | 2022-06-23 11:27 | XMS_ITS | Encounter Summary ---
:1950 Author Organization [place] Address [address] [place] [address]. [place] [address] Care Team Providers Name Role Phone Ingrid Santana RN Unavailable Unavailable Momo Forbes Primary Care Provider Reason for Visit Reason Onset Date Comments Refill Request 02/11/2014 Encounter Details Date Type Department Care Team Description 02/11/2014 Refill Nephrology Isa Ly RN Refill Request 2nd Floor, Clinic [address] [place] [phone] Social History Tobacco Use Types Packs/Day [...] documented in this encounter Care Teams Head Strength And Conditioning Coach Relationship Specialty Start Date End Date Momo Forbes PCP - General Family Practice 01/02/14 [facility] [address] [place] [address] Ingrid Santana RN Registered Nurse Transplant 02/10/12 documented as of this encounter
--- OUTSIDE RECORDS SUMMARY | 2022-06-23 11:27 | XMS_ITS | Encounter Summary ---
:1950 Author Organization [place] Address [facility] [place] [address] Care Team Providers Name Role Phone Ingrid Santana RN Unavailable Unavailable Momo Forbes Primary Care Provider Reason for Visit Reason Comments Eval/Assessment LBA Encounter Details Date Type Department Care Team Description 02/11/2014 Office Visit Specialty Infusion Kaitlynn Leon, Complica tion of transplanted kidney (Primary Dx); and Procedure Center Anemia; 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 Discharge: 02/08/2014 Using Medcard: Yes Med review: Went over all meds and dosing with patient and Tete. Went over Prograf and Cellcept side effects. Medication questions/concerns: Patient requested that we transfer 4 rx's (to profile) from local pharmacy to us here. Pt wants us to get Zofran filled for belt picker 02/12- new dose of 2 Q6-8H PRN. Using medbox: Yes Viewed DVD: Didn't bring up Pain: #2-3, feels good, rarely using Oxycodone Other Concerns: none No further questions for this pharmacist. Yi Londono [facility] [phone] documented in this encounter Plan of Treatment [...] Signature INR 2.28 (H) 0.86 - 1.14 [facility] LABS Specimen Anatomical Collection Method Collection Time Receive d Time (Source) Location / / Volume Laterality 02/11/2014 9:30 AM 4 9:41 CDT AM CDT Kaitlynn Leon MD LAB - BLOOD ORDERABLES Performing Organization Address City/State/ZIP Code Phon e Number [id number] [place] [address] LABS documented in this encounter Visit Diagnoses Diagnosis Complication of transplanted kidney - Pr imary Complications of transplanted kidney Anemia Anemia, unspecified HTN (hypertension) Unspecified essential hypertension Immunosuppression (H) Unspecified disorder of immune mechanism Hypophosphatemia Disorders of phosphorus metabolism documented in this encounter Care Teams Cupola Melter Helper Relationship Specialty Start Date End Date Momo Forbes PCP - General Family Practice 01/02/14 [facility] [address] [place] [address] Ingrid Santana, RN Registered Nurse Transplant 02/10/12 documented as of this encounter
--- OUTSIDE RECORDS SUMMARY | 2022-06-23 11:27 | XMS_ITS | Encounter Summary ---
:1950 Author Organization [place] Address [facility] 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 [address] [place] [address] Ingrid Santana RN Registered Nurse Transplant 02/10/12 documented as of this encounter
--- OUTSIDE RECORDS SUMMARY | 2022-06-23 11:27 | XMS_ITS | Encounter Summary ---
:1950 Author Organization [place] Address [facility] [place] [address] Care Team Providers Name Role Phone Ingrid Santana RN Unavailable Unavailable Momo Forbes Primary Care Provider Reason for Visit Reason Comments Eval/Assessment s/p kidney transplant 8days ago Encounter Details Date Type Department Care Team Description 02/10/2014 Infusion Therapy Specialty Infusion Finger, Migel Mac y replaced by Visit and Procedure MD Nathan transplant (Primary Center [address] [place] [address] Dx) [place] [address] 5 [facility] 2nd Floor [address] [phone] [place], [place] (Work) [phone] Social History Tobacco Use [...] documented in this encounter Progress Notes Em Loomis, RN - 02/10/2014 10:40 AM CDT Diego Guthrie came to [facility] today for a lab and assess 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 Discharge date: 02/08/14 agency service coordinator: Leandro Kahn RN Phone number patient can be reached at: [phone] (girlfriend's cell) Physical Assessment: See physical assessment located under Document Flowsheets. Incision site: stapled, leaking tiny amount clear pink/pale yellow fluid from mid incision (1.5inch area on dressing from 3hours ago) covered with ABD Lines: MARGARET rlq; 30cc out last tamara; 10cc out overnite;; lite pink clear fluid Gibbs: na states is not having voiding difficulty Urine clarity: not asked Hydration: states he [id number] water yesterday but does not like that [...] will follow up with [facility] lab/assess in am 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/Cafeteria Worker verbalized understanding, all questions answered: YES [...] Results Tacrolimus level (02/10/2014 8:37 AM CDT) [facility] Method Time Signature Tacrolimus Not Provided [facility] Last Dose [facility] LABS Tacrolimus 6.8 5.0 - [facility] Level 15.0 ug/L [facility] [...] Code Phon e Number [facility] [address] [place], [place] [phone] [place] [address] LABS (ABNORMAL) CBC with platelets differential (02/10/2014 8:37 AM CDT) Component Value Ref Test Analysis Performed At [facility] gist Range Method Time Signature WBC 5.5 4.0 - [facility] 11.0 [place] LABS 10e9/L RBC Count 2.53 (L) 4.4 - [facility] 5.9 [place] LABS 10e12/L Hemoglobin 7.9 (L) 13.3 - [facility] 17.7 [place] LABS g/dL Hematocrit 23.2 (L) 40.0 - [facility] 53.0 % CAMPUS LABS MCV 92 78 - 100 [facility] fl CAMPUS LABS MCH 31.2 26.5 - [facility] 33.0 pg CAMPUS LABS MCHC 34.1 31.5 - [facility] 36.5 CAMPUS LABS g/dL RDW 14.5 10.0 - [facility] 15.0 % CAMPUS LABS Platelet Count 89 (L) 150 - [facility] 450 CAMPUS LABS 10e9/L Diff Method Manual [...] Code Phon e Number [facility] [id number] DIFFERENTIAL [facility] LABS (ABNORMAL) Phosphorus (02/10/2014 8:37 AM CDT) P athologist Signature Phosphorus 1.9 (L) 2.5 - 4.5 [facility] mg/dL CAMPUS LABS Specimen Anatomical Collection Method Collection Time Receive d Time (Source) Location / / Volume Laterality Blood specimen 02/10/2014 8:37 AM 014 8:38 (specimen) CDT AM CDT Migel Merchant MD LAB - BLOOD ORDERABLES Performing Organization Address City/State/ZIP Code Phon e Number [facility] [address] [place] [address] [facility] LABS Magnesium (02/10/2014 8:37 AM CDT) P athologist Signature Magnesium 2.0 1.6 - 2.3 [facility] mg/dL CAMPUS LABS Specimen Anatomical Collection Method Collection Time Receive d Time (Source) Location / / Volume Laterality Blood specimen 02/10/2014 8:37 AM 014 8:38 (specimen) CDT AM CDT Migel Merchant MD LAB - BLOOD ORDERABLES Performing Organization Address City/[facility] Code Phon e Number [facility] [address] [place] [address] [facility] LABS (ABNORMAL) Basic metabolic panel (02/10/2014 8:37 AM CDT) Patholo gist Method Time Signature Sodium 144 133 - 144 [facility] mmol/L [facility] LABS Potassium 4.8 3.4 - 5.3 [facility] mmol/L [facility] LABS Chloride 111 (H) 94 - 109 [facility] mmol/L [facility] LABS Carbon Dioxide 22 20 - 32 [facility] mmol/L [facility] LABS Anion Gap 10 6 - 17 [facility] mmol/L [facility] LABS Glucose 128 (H) 60 - 99 [facility] mg/dL [facility] LABS Urea Nitrogen 34 (H) 7 - 30 [facility] mg/dL [facility] LABS Creatinine 1.80 (H) 0.66 - [facility] 1.25 mg/dL [facility] LABS GFR Estimate 38 (L) >60 [facility] mL/min/1.7 [facility] m2 CAMPUS LABS GFR Estimate If 46 (L) >60 [facility] Black mL/min/1.7 [place] [address] CAMPUS LABS Calcium 9.1 8.5 - 10.4 [facility] mg/dL [facility] LABS Specimen Anatomical Collection Method Collection Time Receive d Time (Source) Location / / Volume Laterality Blood specimen 02/10/2014 8:37 AM 014 8:38 (specimen) CDT AM CDT Migel Merchant MD LAB - BLOOD ORDERABLES Performing Organization Address City/State/ZIP Code Phon e Number [facility] [address] [place] [address] [facility] LABS documented in this encounter Visit Diagnoses Diagnosis Kidney replaced by transplant - Primary documented in this encounter Care Teams Accounting File Clerk Relationship Specialty Start Date End Date Momo Forbes PCP - General Family Practice 01/02/14 [facility] [address] [place] [phone] Ingrid Santana, RN Registered Nurse Transplant 02/10/12 documented as of this encounter
--- OUTSIDE RECORDS SUMMARY | 2022-06-23 11:27 | XMS_ITS | Encounter Summary ---
:1950 Author Organization [place] Address [facility] [place] [address] Care Team Providers Name Role Phone Ingrid Santana RN Unavailable Unavailable Momo Forbes Primary Care Provider Encounter Details Date Type Department Care Team Description 02/11/2014 Radiant Appointment [facility] 1st Floor, Clinic [address] [place], [place] [address] Social History Tobacco Use Types Packs/Day Years [...] Procedure Name Priority Date/Time Associated Diagnosis Comme [facility] US RENAL TRANSPLANT Routine 02/11/2014 2:48 PM [...] Practice 01/02/14 [facility] [address] [place] [address] Ingrid Santana, RN Registered Nurse Transplant 02/10/12 documented as of this encounter
--- OUTSIDE RECORDS SUMMARY | 2022-06-23 11:27 | XMS_ITS | Encounter Summary ---
:1950 Author Organization [place] Address [facility]0 [facility] [place] [address] Care Team Providers Name Role Phone Ingrid Santana RN Unavailable Unavailable Momo Forbes Primary Care Provider Reason for Visit Reason Comments Eval/Assessment LBA Encounter Details Date Type Department Care Team Description 02/12/2014 Infusion Therapy Specialty Infusion Finger, Migel Mac y replaced by Visit and Procedure MD Nathan transplant (Primary Center [address] [place] [address] Dx) [facility] [place] [address] 5 [facility] 2nd Floor [address] [phone] [place], [place] (Work) [phone] Social History Tobacco Use [...] Guthrie Thank you for choosing [facility] Specialty Infusion [facility] Procedure [facility] ([facility]) for your transplant cares. The following information is a summary of our appointment as well as important reminders. Additional information: We will see you on for labs & assessment. We look forward in seeing you on your next appointment here at [facility]. Please don???t hesitate to callus at [phone] to reschedule any of your appointments or to speak with one of the [facility] registered nurses. It was a pleasure taking care of you today. Sincerely, Gladis Olvera, BOGDAN [facility] [address] [place] [address] January 2014Tuesday 1 2 3 4 5 6 7 8 9 10 11 12 13 14 Admission 12:55 PM Migel Merchant MD Unit 7A [facility] [place] (Discharge: 02/08/2014) XR CHEST 2 VIEWS 1:55 PM (10 min.) [email or web address] [facility], Radiology TRANSPLANT KIDNEY RECIPIENT DONOR 4:00 PM Migel Merchant MD UU OR XR CHEST PORT 2 VIEWS 11:10 PM (15 min.) [email or web address] [facility], Radiology 15 US RENAL TRANSPLANT 7:50 AM (50 min.) [email or web address] [facility], Ultrasound 16 IP EVALUATION 6:00 AM (60 min.) Angela Wilder, PT [facility], Physical Therapy UU TRANSPLANT MEDICATIONS 11:00 AM (120 min.) Josseline Almendarez, BOGDAN [facility], Patient Learning Center UU TRANSPLANT FOLLOW-UP CARE 1:00 PM (120 min.) Josseline Almendarez RN [facility], Patient [facility] ECH LIMITED 3:35 PM (60 min.) [email or web address] [facility], Echocardiography 17 IP TREATMENT 5:30 AM (30 min.) Roderick Lawson, PT [facility], Physical Therapy 18 IP TREATMENT 5:30 AM (30 min.) Yesenia Rodriguez, PT [facility], Physical Therapy 19 IP TREATMENT 5:30 AM (30 min.) Reina Kenny, PT [facility], Physical Therapy US RENAL 11:15 AM (60 min.) [email or web address] [facility], Ultrasound 20 IP TREATMENT 5:30 AM (30 min.) Reina Kenny, PT [facility], Physical Therapy UU TRANSPLANT MEDICATIONS 11:00 AM (120 min.) Em Mohan, RN [facility], Patient Learning Center 21 [facility] NEW TRANSPLANT 7:00 AM (360 min.) [facility] Sipc Chair 9 Specialty Infusion and Procedure Center 22 [facility] NEW TRANSPLANT 7:00 AM (360 min.) [facility] Sipc Chair 11 Specialty Infusion and Procedure Center 23 [facility] NEW TRANSPLANT 7:00 AM (360 min.) [facility] Sipc Chair 12 Specialty Infusion and Procedure Center [facility] KIDNEY TX DISCHARGE 9:00 AM (30 min.) Kaitlynn Leon MD [facility] Procedure Center US RENAL TRANSPLANT 2:00 PM (60 min.) [address] 24 [facility] NEW TRANSPLANT 7:00 AM (360 min.) [facility] Sipc Bed 14 Specialty Infusion and Procedure Center [facility] SIPC RETURN 9:00 AM (30 min.) Kaitlynn Leon MD [facility]fusion [facility] Procedure Center 25 26 [facility] SIPC PROCEDURE 7:00 AM (60 min.) [facility] Sipc Chair 9 Specialty Infusion and Procedure Center [facility] SIPC RETURN 8:00 AM (30 min.) Kaitlynn Leon MD Specialty Infusion [facility] Procedure Center 27 28 29 30 [facility] NEW 9:00 AM (30 min.) [facility] Cvc Consult [facility] Heart [facility] KIDNEY POST OP 1:45 PM (15 [...] 4:27 PM CDT Diego Guthrie came to [facility] today for a lab and assess following a Kidney transplant on 02/02/14. Discharge date: 02/08/14 microbiology coordinator: Leandro Kahn Phone number patient can be reached at: [phone] Physical Assessment: See physical assessment located under Document Flowsheets. Incision site: with modesta & slight ecchymosis. Dry dressing changed. Lines: MARGARET drain to bulb suction is draining sero sanguinous fluid. Continues to drain more than 30 ml/day. Pt will have Tuesday off from [facility] and will return for LBA. [...] of care for today: Pt presented to [facility] for labs and assessment. Labs drawn, reviewed with Dr. Leon. Oral phosphorus tablets ordered. Coumadin dose decreased to 5 mg every evening. Pt will have Tuesday off, return and will start with [facility] Nursing on TuesdayFebruary 15. Pt's MARGARET [...] Discharge Plan Pt will follow up with [facility] on 02/14 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/Gamemaster verbalized understanding, all questions answered: YES Discharged [...] INR 2.64 (H) 0.86 - 1.14 [facility] LABS Specimen Anatomical Collection Method Collection Time Receive d Time (Source) Location / / Volume Laterality Blood specimen 02/12/2014 7:41 AM 014 7:43 (specimen) CDT AM CDT Kaitlynn Leon MD LAB - BLOOD ORDERABLES Performing Organization Address City/State/ZIP Code Phon e Number [facility] [address] [place] [address] [facility] Tacrolimus level (02/12/2014 7:41 AM CDT) [facility] gist Method Time Signature Tacrolimus Last 02/11/14 [facility] Dose [address] [facility] Tacrolimus 8.4 5.0 - [facility] Level 15.0 ug/L [facility]S [...] [facility] [address] [place] [address] [facility] (ABNORMAL) CBC with platelets differential (02/12/2014 7:41 AM CDT) Patholo gist Method Time Signature WBC 5.0 4.0 - [facility] 11.0 [facility] 10e9/L [place] [facility] RBC Count 2.41 (L) 4.4 - 5.9 [facility] 10e12/L [facility] Hemoglobin 7.4 (L) 13.3 - [facility] 17.7 g/dL [facility] Hematocrit 22.3 (L) 40.0 - [facility] 53.0 % [facility] MCV 93 78 - 100 [facility] fl [facility] MCH 30.7 26.5 - [facility] 33.0 pg [facility] MCHC 33.2 31.5 - [facility] 36.5 g/dL [facility] RDW 14.5 10.0 - [facility] 15.0 % [facility] Platelet Count 95 (L) 150 - 450 [facility] 10e9/L [facility] Diff Method Automated [facility] Method [facility] % Neutrophils 85.2 % [facility] % Lymphocytes 5.6 % [facility] % Monocytes 4.6 % [facility] % Eosinophils 4.2 % [facility] % Basophils 0.2 % [facility] % Immature 0.2 % [facility] Granulocytes [facility] Absolute 4.3 1.6 - 8.3 [facility] Neutrophil 10e9/L [facility] Absolute 0.3 (L) 0.8 - 5.3 [facility] Lymphocytes 10e9/L [facility] Absolute 0.2 0.0 - 1.3 [facility] Monocytes 10e9/L [facility] Absolute 0.2 0.0 - 0.7 [facility] Eosinophils 10e9/L [facility] [...] [facility] [address] [place], [place] [id number] [place] [address] LABS (ABNORMAL) Phosphorus (02/12/2014 7:41 AM CDT) P athologist Signature Phosphorus 1.7 (L) 2.5 - 4.5 [facility] mg/dL [facility] LABS Specimen Anatomical Collection Method Collection Time Receive d Time (Source) Location / / Volume Laterality Blood specimen 02/12/2014 7:41 AM 014 7:43 (specimen) CDT AM CDT Kaitlynn Leon MD LAB - BLOOD ORDERABLES Performing Organization Address City/[facility] Phon e Number [facility] [address] LABS Magnesium (02/12/2014 7:41 AM CDT) athologist Signature Magnesium 1.8 1.6 - 2.3 [facility] mg/dL C[facility] LABS Specimen Anatomical Collection Method Collection Time Receive d Time (Source) Location / / Volume Laterality Blood specimen 02/12/2014 7:41 AM 014 7:43 (specimen) CDT AM CDT Kaitlynn Leon MD LAB - BLOOD ORDERABLES Performing Organization Address City/State/[facility] Code Phon e Number [facility] [address] [place], [place] [id number] [place] [address] LABS (ABNORMAL) Basic metabolic panel (02/12/2014 7:41 AM CDT) [facility] gist Method Time Signature Sodium 142 133 - 144 [facility] mmol/L [facility] Potassium 4.9 3.4 - 5.3 [facility] mmol/L [facility] Chloride 113 (H) 94 - 109 [facility] mmol/L [facility] Carbon Dioxide 21 20 - 32 [facility] mmol/L [facility] Anion Gap 9 6 - 17 [facility] mmol/L [facility] Glucose 127 (H) 60 - 99 [facility] mg/dL [facility] Urea Nitrogen 24 7 - 30 [facility] mg/dL [facility] Creatinine 1.92 (H) 0.66 - [facility] 1.25 mg/dL [facility] GFR Estimate 36 (L) >60 [facility] mL/min/1.7 [facility] m2 CAMPUS LABS GFR Estimate If 43 (L) >60 [facility] Black mL/min/1.7 [place] [address] CAMPUS LABS Calcium 8.9 8.5 - 10.4 [facility] mg/dL [facility] Specimen Anatomical Collection Method Collection Time Receive d Time (Source) Location / / Volume Laterality Blood specimen 02/12/2014 7:41 AM 014 7:43 (specimen) CDT AM CDT Kaitlynn Leon MD LAB - BLOOD ORDERABLES Performing Organization Address City/State/ZIP Code Phon e Number [facility] [address] [place] [address] [facility] documented in this encounter Visit Diagnoses [...] after. documented in this encounter Care Teams Stores Clerk Relationship Specialty Start Date End Date Momo Forbes PCP - General Family Practice 01/02/[address] [address] Ingrid Santana, RN Registered Nurse Transplant 02/10/12 documented as of this encounter
--- OUTSIDE RECORDS SUMMARY | 2022-06-23 11:28 | XMS_ITS | Encounter Summary ---
:1950 Author Organization [place] Address [address] [place] [address] Care Team Providers Name Role Phone Ingrid Santana RN Unavailable Unavailable Momo Forbes Primary Care Provider Encounter Details Date Type Department Care Team Description 02/02/2014 Results Only LABORATORY RESULTS Migel Merchant MD [address] [facility] [address] [place], [place] [address] (Wo rk) Social History Tobacco Use Types [...] I Single Antigen (02/02/2014 6:51 PM CDT) [facility] Method Time Signature SA1 Test SA [...] Phon e Number [facility] HLA LABORATORY Immunology/Histocompatabil [place], [place] [address] [facility] [address] [facility] [address] Building, Room 3-580 HISTOTRAC documented in this encounter Visit Diagnoses Not on filedocumented in this encounter Care Teams Tank Farm Gauger Relationship Specialty Start Date End Date Momo Forbes PCP - General Family Practice 01/02/14 [facility] [address] [place] [address] Ingrid Santana, RN Registered Nurse Transplant 02/10/12 documented as of this encounter
--- OUTSIDE RECORDS SUMMARY | 2022-06-23 11:28 | XMS_ITS | Encounter Summary ---
:1950 Author Organization [place] Address [address] [place] [address] Care Team Providers Name Role Phone Ingrid Santana RN Unavailable Unavailable Momo Forbes Primary Care Provider Encounter Details Date Type Department Care Team Description 02/02/2014 Results Only LABORATORY RESULTS Migel Merchant MD 420 [facility] [address] [place], [place] [address] (Wo rk) Social History Tobacco Use Types [...] Priority Date/Time Associated Diagnosis Comme nts HLA LUAKSZ CLASS II Routine 02/02/2014 6:51 PM Resul ts for this SINGLE ANTIGEN CDT procedure are in the results section. documented in this encounter Results HLA Lukasz Class II Single Antigen (02/02/2014 6:51 PM CDT) [facility] Method Time Signature SA2 Test SA [...] Phon e Number [facility] HLA LABORATORY Immunology/Histocompatabil [place], [place] [address] [facility] [address] [facility] [address] Building, Room 3-580 HISTOTRAC documented in this encounter Visit Diagnoses Not on filedocumented in this encounter Care Teams Technical Support Assistant Relationship Specialty Start Date End Date Momo Forbes PCP - General Family Practice 01/02/14 [facility] [address] [place] [address] Ingrid Santana, RN Registered Nurse Transplant 02/10/12 documented as of this encounter
--- OUTSIDE RECORDS SUMMARY | 2022-06-23 11:28 | XMS_ITS | Encounter Summary ---
:1950 Author Organization [place] Address [address] [place] [address]. 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
--- OUTSIDE RECORDS SUMMARY | 2022-06-23 11:28 | XMS_ITS | Encounter Summary ---
:1950 Author Organization [facility] Address [address] [place] [address] Care Team Providers Name Role Phone Ingrid Santana RN Unavailable Unavailable Momo Forbes Primary Care Provider Reason for Referral Home Health Therapies & Aides Specialty Diagnoses / Procedures Referred By Contact Refer red To Contact Adeline Diaz MD [place] [phone] Referral ID Status Reason Start Date Expiration Date Visits Requ ested Visits Authorized ome Health Therapies & Aides Specialty Diagnoses / Procedures Referred By Contact Gary phelps To Contact Adeline Diaz MD [address] [place] [address] [address] Referral ID Status Reason Start Date Expiration Date Visits Requ ested Visits Authorized ome Health Therapies & Aides Specialty Diagnoses / Procedures Referred By Contact Gary phelps To Contact [facility] [address] [place], [place] [phone] Referral ID Status Reason Start Date Expiration Date Visits Requ ested Visits Authorized Reason for Visit Auth/Cert - Closed Specialty Diagnoses / Procedures Referred By Contact Gary phelps To Contact Med Surg Diagnoses end stage renal disease dialysis End stage renal failure on dialysis Renal Failure Uu U7a Procedures TRANSPLANT KIDNEY RECIPIENT DONOR [address] [place] [address] Phone: Referral ID Status Reason Start Date Expiration Date Visits Requ ested Visits Authorized [id number] Closed 02/04/2014 08/03/2014 1 1 Encounter Details Date Type Department Care Team Description 02/02/2014 [facility] [address] [place] [address] S/P kidney transplant (Primary Dx); 02/08/2014 [facility] [address] [place] Rust MD [address] [place] [address] Atrial fibrillation (H) Bank [address] [place] [address] Social History Tobacco Use Types [...] Physician Discharge Summary Patient ID: Diego Guthrie [id number] 63 year old 1950 Admit date: 02/02/2014 [...] Take 1 tablet by mouth daily. B nyhpfvj-N-nucmb acid (NEPHROCAPS) 1 MG capsule Take 1 [...] in the [facility] ([facility]) which is located on the second floor of the [facility] next to the Transplant Clinic. Your labs [...] of these appointments you will meetwith a forest and conservation worker and meet your home coordinator. Your nurse will also be in communication with your surgeon and forest and conservation worker as needed. The direct number to the [facility] is [phone]. In the [facility] [...] the hospital. This will be located in [facility] transplant surgery clinic on the second floor.Your transplant surgeon is: Dr. Merchant. You have a ureteral stent in place which needs to be removed in 4-6 weeks. If a manufacturing scheduler does not contact you for this, please contact your home coordinator. If you have modesta in place, they will be removed in 3 weeks after operation. Notify your coordinator if you have pain over your kidney, fever greater than 101.5F, or decreased urine output. Notify your coordinator immediately if you are ever unable to take your immunosuppressive medications for any reason. 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 High protein diet x 8 weeks. Practice food safety precautions - no fish/seafood x 3 weeks. Discharge nurse--please fax discharge orders to Davon Chiang PHN and to his PCP with INR level and warfarin doses --done 6. bmp documented in this encounter Medications at [...] >2. He can be seen by any director audience marketing in the outpatient setting for coordination. Continue metoprolol 25 po bid until he is r e-evaluated. We did attempt inpatient REFUGIO guided cardioversion, but the patient developed significant bleeding while on heparin. José Miguel Alvarez M.D. Promotional Advertising Assistant Joseph Quintana MD - 02/08/2014 12:35 [...] Dr. Quintana. Sina Robison MD Nephrology Fellow [phone] Attestation: This patient has been seen and [...] interval not displayed. CBC Recent Labs Lab 02/08/1442 02/07/14 04202/06/14 1659 02/06/14 0557 02/05/14 1204 HGB 7.8* [...] Ramires RN - 02/07/2014 2:25 PM CDT Cloth Colorer D: Diego Guthrie 63 year old male POD #5 s/p DDKT for ESRD 2/[address] Diaz note today. Per Dr Diaz, pt will most likely be ready for d/c to home tomorrow and will return to [facility] for 5 days at 0700. Pt [...] him. Pt does not know where the [facility] or transplant clinic is, I told him and he replied I will find it. Pt does not care which [facility] agency will follow him--There are only 2 to choose from, so I chose the Local [facility] [phone]/ --I called and left a message with Estrella Fletcher and I fax'd his records tothem--pt will need start of care approx Thursday 02/15. Pt is new on warfarin and I called his PCP's office and they have INR nurses Tuesday-Tuesday their fax # is [phone] (when N visits are completed --pt will call main clinic # to schedule INR draws). 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 I verified his address and phone #(is his cell) on the facesheet. Pt has not met his OP nonfarm animal caretaker: Leandro Kahn, yet--I sent Leandro an in basket message today-with plan. A: possible d/c to home Tuesday P: see above-will follow and will call [facility] to confirm they can accept him. Joseph [...] Dr. Quintana. Sina Robison MD Nephrology Fellow [phone] Attestation: This patient has been seen and [...] assistance Medical Decision Making: Medium Subsequent visit 72837 (moderate level decision making) PATO/Fellow/Resident Provider: Adeline [...] results and reevaluate pt. Indu Calixto, PGY1 Jsoeph Rodriguez MD - 02/06/2014 4:25 PM CDT [facility] Cardiology Progress Note I have seen and [...] Dr. Quintana. Sina Robison MD Nephrology Fellow [phone] Attestation: This patient has been seen and [...] Dr. Quintana. Sina Robison MD Nephrology Fellow [phone] Attestation: This patient has been seen and [...] REPLACEMENT ONLY ??? insulin (regular) Stopped (02/05/14 7277) Shiva Kahn RN - 02/05/2014 4:47 PM CDT COIL TIER NOTE I met with the patient and his yesterday at [facility] PCU-6B (telemetry unit) to discuss transition from inpatient to outpatient care following kidney translantation. The patient is POD #3 extended criteria donor (CLIENT DEVELOPMENT DIRECTOR) kidney transplant for ESRD related to diabetic [...] the plan for daily visits to the [facility] for 5 days after discharge followed [...] meet with the patient again in the [facility] following discharge from [facility]. Joseph Rodriguez MD - 02/05/2014 11:16 AM CDT [facility] Cardiology Progress Note I have seen and [...] plan for REFUGIO cardioversion tomorrow, NPO at [place] (orders placed) -- continue heparin and initiate [...] kidney on 02/02/2014. Pt lives alone in [facility] [place] though reports that his girlfriend in in the process of moving in with him. Pt girlfriend, Tete, will be present when pt returns home but she works photo lab technician. Pt was on dialysis for 2 1/2 years prior to transplant. Pt works independently but reports that he currently has no income coming in. Pt has primary insurancethrough Medicare and Secondary insurance through [employer] Pt has no co-pays for his immunosuppressants and a high out of pocket cost for DANILO Salcido to look into grants for pt for [employer]. I: Met with pt to introduce this ticket writer and explain sw role and services available while inpatient in the hospital. Asked if pt had any questions or concerns and completed an assessment of psychosocialneeds post transplant. Provided education about expectations and requirements post discharge like fol low up in the [facility]. Pt is unsure yet if he [...] needs arise prior to discharge. CECY Kearns, FOUNDATION DRILL OPERATOR Indu Calixto MD - 02/05/2014 1:50 [...] Adds Type of Visit Initial PT Evaluation Correctional Security Officer Correctional Security Officer Present no Language Zambian Living Environment (R) Lives With alone Living Arrangements ([facility]) Home Accessibility no concerns Number of [...] up when pt is available. CECY Kearns, [facility] [phone] phone [phone] pager Joseph Quintana MD - 02/04/2014 11:51 [...] Dr. Quintana. Sina Robison MD Nephrology Fellow [phone] Attestation: This patient has been seen and [...] -- 11* -- 11* -- -- 11* ENEDIAN 9.4 -- -- -- -- 9.1 -- [...] for this basename: PTHI, in the last 61386 hours IRON STUDIES No results found for this basename: IRON, FEB, IRONSAT, THEE, in the last 62612 hours Imaging: All imaging studies reviewed by [...] or equal to 12.0 mlU/mL. Adeline Diaz [phone] Attestation: The patient has been seen and [...] donor kidney transplant, with stent on 02/02/14. CLIENT DEVELOPMENT DIRECTOR donor. Graft function:uncertain, Cr slightly up. Slow [...] . Medical Decision Making: Medium Subsequent visit 26210 (moderate level decision making) PATO/Fellow/Resident Provider: Caitlin [...] note and orders. Migel Merchant MD, PhD motorcycle mechanic Abdominal Organ Transplantation Carmelita Rosario, RN - 02/03/2014 9:38 AM CDT Patient removed from the UNOS waitlist after donor kidney transplant. UNOS ID is [id number]. Rafaela Cardona - 02/03/2014 9:17 AM CDT [...] followed general diet. 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 CURRENT NUTRITION ORDERS - [...] DDKT ASSESSED NUTRITION NEEDS: Estimated Energy Needs: 3592-4455+ kcals (25-30+ Kcal/Kg) Justification: maintenance post-transplant Estimated [...] (6- 8 weeks). Rec follow heart-healthy diet longwall headgate operator. Implementation Nutrition education: Provided instruction on post-transplant diet with discussion regarding protein sources and high protein needs in acute post-tx phase. Reviewed recommendations to follow low fat/lowsodium diet longwall headgate operator and discussed heart healthy diet tips. Discussed [...] adjustment. Rafaela Cardona RD, LD Weekend Coverage [phone] Carla, Jose Galarza MD - 02/03/2014 4:57 AM CDT Surgery [...] Doing well postoperatively. Pain: Controlled by Dilaudid GOLF CLUB REPAIRER Diet: NPO tonight Volume Status: Borderline low UOP, continue MIVF, 0.9 % NS 500 cc bolus given for low UOP, CVP not accurate, systolic in 100-110 Recheck hemoglobin and potassium normal. Rest of the plan per primary team. Will continue to follow. Jose Aguirre MD PGY-1.................02/03/2014 Surgery Cross Cover Pager:[phone] documented in this encounter H&P Notes Caitlin [...] 1 tablet by mouth daily. ??? 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 Kidney bx [...] note and orders. Migel Merchant MD, PhD motorcycle mechanic Abdominal Organ Transplantation documented in this encounter Consult Notes Joseph Rodriguez MD - 02/04/2014 11:03 AM CDTAssociated Order(s): CARDIOLOGY IP CONSULT [facility] CARDIOLOGY CONSULT SERVICE INITIAL CONSULT NOTE [...] 1 tablet by mouth daily. ??? 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 José Miguel Alvarez MD Promotional Advertising Assistant Pager: [phone] February 04, 2014 Kaitlynn Leon MD - 02/03/2014 9:30 AM CDT Nephrology Initial Consult February 03, 2014 Diego Guthrie Date of : 1950 Date of Admission:02/02/2014 Primary care provider: Momo Forbes Requesting physician: Migel Merchant MD ASSESSMENT AND RECOMMENDATIONS: 1. 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 We will monitor Induction with [...] h/o type 2 Dm, who received DDKT (CLIENT DEVELOPMENT DIRECTOR) on 02/02/2014 donor kidney had severe atherosclerotic [...] Laterality Date ??? Amputation below knee rt/lt 4-28-2006 left due acute osteomyelitis of ankle and foot ??? Avf right forearm ??? Laser surgery of eye both eyes ??? Cataract iol, rt/lt both eyes MEDICATIONS: HORSE RIDING COACH OR INSTRUCTOR Meds Prior to Admission medications Medication Sig Last Dose Taking? Auth Provider Calcium Carbonate-Vitamin D (CALCIUM + D PO) Take by mouth daily. Reported, Patient lisinopril (PRINIVIL,ZESTRIL) 40 MG tablet Take 40 mg by mouth 2 times daily. Reported, Patient METOPROLOL SUCCINATE PO Take by mouth daily. Reported, Patient aspirin 81 MG tablet Take 1 tablet by mouth daily. Reported, Patient B hswfsxv-G-hmany acid (NEPHROCAPS) 1 MG capsule Take 1 [...] Intravenous Central line Once ??? HYDROmorphone Intravenous GOLF CLUB REPAIRER Infusion Meds ??? IV fluid REPLACEMENT ONLY ??? insulin (regular) 3 Units/hr (02/03/14701) ??? IV fluid REPLACEMENT ONLY ??? IV fluid REPLACEMENT ONLY ??? IV fluid REPLACEMENT ONLY 125 mL/hr at 02/03/14 0702 ALLERGIES: No Known Allergies REVIEW OF SYSTEMS: A 10 point review of systems was negative except as noted above. SOCIAL HISTORY: History Social History ??? Marital Status: Single Spouse Name: N/A Number of Children: N/A ??? 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 Alvin Diego Cardiovascular Disease Fellow [phone] Patient seen and examined by me with [...] Cullen MD, PhD Jarad Cullen MD, PhD [phone] documented in this encounter Nursing Notes Gretta Mary RN - 02/02/2014 11:[address] Owens with Transplant Surgery notified of stat lab results. Magnesium replaced. Dr. Blank with Anesthesia reviewed chest x-ray. CVC not deep enough to give accurate CVP readings, however all lumens aspirate blood well. Patient is ok to transfer to unit 6B per [facility]. documented in this encounter Miscellaneous Notes Plan of Care - Amanda Hernandez RN - 02/08/2014 3:44 PM CDT Problem: IP GENERAL POC-ADULT,OB,BEHAVIORAL FVCPM Goal: Individualization/Patient-Specific Goal (Adult,OB,Behavioral The patient and/or their computer help desk representative will achieve their patient-specific goals related [...] Card updated. Report called to Saima in [facility]. Left facility accompanied by s.o at 1600. Plan of Care - Amanda Hernandez RN - 02/08/2014 2:13 PM CDT Problem: IP GENERAL POC-ADULT,OB,BEHAVIORAL FVCPM Goal: Individualization/Patient-Specific Goal (Adult,OB,Behavioral The patient and/or their computer help desk representative will achieve their patient-specific goals related [...] Individualization/Patient-Specific Goal (Adult,OB,Behavioral The patient and/or their computer help desk representative will achieve their patient-specific goals related [...] Individualization/Patient-Specific Goal (Adult,OB,Behavioral The patient and/or their computer help desk representative will achieve their patient-specific goals related [...] 2 LOB noted without balance challenges on 6/19/14) 5. Independently verbalize abdominal precautions (Verbalizes 1 [...] Diet recommendations post-transplant: Heart healthy dietary habits snf (low saturated/trans fat, low sodium). High protein diet x 8 weeks. Practice food safety precautions - no fish/seafood x 3 weeks. Inez Luevano MS, RD, LD Pager [phone] Pharmacy-Immunosuppression Monitoring - Em Vasquez, [facility] - 02/07/2014 9:06 AM CDT Tacrolimus Monitoring [...] continue to follow. Em Vasquez, Pharm.D., [facility] Pager [phone] Plan of Care - Annmarie Colby RN - 02/07/2014 5:11 AM CDT Problem: IP GENERAL POC-ADULT,OB,BEHAVIORAL FVCPM Goal: Individualization/Patient-Specific Goal (Adult,OB,Behavioral The patient and/or their computer help desk representative will achieve their patient-specific goals related [...] Individualization/Patient-Specific Goal (Adult,OB,Behavioral The patient and/or their computer help desk representative will achieve their patient-specific goals related [...] increased fluid intake, urine color is becoming donor services technician( tea color/bloody- >dark sy/tea color). Incisional pain [...] Physical Therapy Goals The patient and/or their computer help desk representative will achieve their patient-specific goals related [...] Physical Therapy Goals The patient and/or their computer help desk representative will achieve their patient-specific goals related [...] Individualization/Patient-Specific Goal (Adult,OB,Behavioral The patient and/or their computer help desk representative will achieve their patient-specific goals related [...] Individualization/Patient-Specific Goal (Adult,OB,Behavioral The patient and/or their computer help desk representative will achieve their patient-specific goals related [...] Physical Therapy Goals The patient and/or their computer help desk representative will achieve their patient-specific goals related [...] at this time. Pharmacy - Cayetano Olivera [facility] - 02/05/2014 12:26 PM CDT Visited 02/05/2014 in hospital room prior to discharge to review medications, review discharge process and review specialty pharmacy program. Med Review: Reviewed patient's medications and medical conditions. Patient would like to use [facility] to manage all medications. Medcard: [...] Specialty Pharmacy review: Discussed the benefits of [facility] and Diego has enrolled. Also gave him supplies (blood pressure cuff, thermometer, and pill box) Other concerns: No other concerns at this time. No further questions for this pharmacist. Inez Cox, Student Pharmacist Body Repairer [facility] [address] [place] [address] Cayetano Olivera, Pharmacist [facility] [phone] Pharmacy-Anticoagulation Service - Teresa Wright RP - 02/05/2014 11:29 AM CDT Clinical Pharmacy- [...] Individualization/Patient-Specific Goal (Adult,OB,Behavioral The patient and/or their computer help desk representative will achieve their patient-specific goals related [...] melonie hard time making full sentences. When ticket writer came on shift at 8pm patient [...] Individualization/Patient-Specific Goal (Adult,OB,Behavioral The patient and/or their computer help desk representative will achieve their patient-specific goals related [...] Physical Therapy Goals The patient and/or their computer help desk representative will achieve their patient-specific goals related [...] by friend. Pt transferred to chair, VSS, safety director on, oriented to room. Pharmacy-Admission Medication History - Teresa Wright [facility] - 02/04/2014 11:54 AM CDT Admission medication history interview status for the 02/02/2014 admission is complete. See [facility] admission navigator for allergy information, prior to admission medications and immunization status. Medication history interview sources (including written lists, pill bottles, clinic record):Patient Medication history source reliability:Good Primary pharmacy:[facility] phone number: [phone] Changes made to HORSE RIDING COACH OR INSTRUCTOR medication list (reason) Added: Vitamin D 1,000 [...] at Unknown time Yes Reported, Patient B ouoeeyc-I-vtvrd acid (NEPHROCAPS) 1 MG capsule Take 1 [...] Individualization/Patient-Specific Goal (Adult,OB,Behavioral The patient and/or their computer help desk representative will achieve their patient-specific goals related [...] 45 minutes and remains in A-fib via diagnostic cardiac sonographer. Repeat EKG around 1000 showed continued Afibl. [...] Physical Therapy Goals The patient and/or their computer help desk representative will achieve their patient-specific goals related to the plan of care. The patient-specific goals include: PT 7A: HOLD for AM per RN - pt with a-fib this morning. Plan of Care - Alisson Diane RN - 02/04/2014 6:45 AM CDT Problem: IP GENERAL POC-ADULT,OB,BEHAVIORAL FVCPM Goal: Individualization/Patient-Specific Goal (Adult,OB,Behavioral The patient and/or their computer help desk representative will achieve their patient-specific goals related [...] Individualization/Patient-Specific Goal (Adult,OB,Behavioral The patient and/or their computer help desk representative will achieve their patient-specific goals related [...] to yellow. Pharmacy-Transplant Note - Davina Schuster [facility] - 02/03/2014 4:28 PM CDT Adult Kidney [...] Individualization/Patient-Specific Goal (Adult,OB,Behavioral The patient and/or their computer help desk representative will achieve their patient-specific goals related to the plan of care. The patient-specific goals include: 1. Pt will remain hemodynamically stable 2. Pt will have adequate urine output 3. Pt will be free of falls. RD Patient will verbalize understanding of 3 important aspects of post-transplant diet guidelines. PO intake >50% meals TID once diet adv. Report taken from [facility] on 6B; patient transferred to from 6B via wheelchair around 1500. Patientsettled into room, oriented to floor/room and call light. VS taken. Orders released. Continue ordersas written and notify MD with any concerns. Plan of Care - Sofie Christianson RN - 02/03/2014 2:59 PM CDT Problem: IP GENERAL POC-ADULT,OB,BEHAVIORAL FVCPM Goal: Plan of Care Review (Adult,OB,Behavioral) The patient and/or their computer help desk representative will communicate an understanding of their [...] algorithm 2, 1 unit now. Pt still jpfsvznaq2F NC to maintain sats above 90 % [...] Individualization/Patient-Specific Goal (Adult,OB,Behavioral The patient and/or their computer help desk representative will achieve their patient-specific goals related [...] Intermittent sharp R lower abd pain. Dilaudid GOLF CLUB REPAIRER encouraged, increased to 0.2/10/1.2. R lower abd [...] 0200 made 20cc/hr, at 0300 made 30cc/hr. [place]/red tinged urine. MIVF @ 125/hr. VSS. HR 70s, BPs 100s-120s/60s. No new orders at this time. Will continue to monitor. Plan of Care - Tasia Andrade RN - 02/03/2014 12:00 AM CDT Pt arrived to 6B from PACU, s/p DDKT. A&O x3-4. VSS. [place]/red urine output. Small amt drainage on abd [...] to Type 2 Diabetes. The patient received anorgan offer for a Donor CLIENT DEVELOPMENT DIRECTOR (expanded criteria donor) kidney transplant. After discussing [...] The UNOS number of the donor is [id number]. The crossmatch was done prospectively; and the [...] reconstruction. FACULTY SURGEON: Migel Merchant M.D., Ph.D. FELLOW/DETHISTLER OPERATOR SURGEON: Caitlin Owens MD fellow ANESTHESIA: None VERIFICATION: Prior to incision, I verified the donor ABO and recipient ABO. After the donor organ arrived to the operating room and prior to anastamosis, I visually verified that the donor identification, blood type, and other vital data were compatible with the recipient. FINDINGS: Donor type: CLIENT DEVELOPMENT DIRECTOR (expanded criteria donor) Organ: kidney Graft Injury: [...] of the procedure. Plan of Care - Mike Inez L - 02/02/2014 4:43 PM CDT Problem: IP GENERAL POC-ADULT,OB,BEHAVIORAL FVCPM Goal: Individualization/Patient-Specific Goal (Adult,OB,Behavioral The patient and/or their computer help desk representative will achieve their patient-specific goals related to the plan of care. The patient-specific goals include: Outcome: No Change VSS on RA. BG 100. PIV placed. Pt took pre-op shower. Pt seen by cardiology and anesthesia. Report given to PACU nurse. Belongings with pt's friend. Transferred to pre-op area at 1630 for DDKT. Plan of Care - Molly Polanco, RN - 02/02/2014 3:35 PM CDT Problem: IP GENERAL POC-ADULT,OB,BEHAVIORAL FVCPM Goal: Individualization/Patient-Specific Goal (Adult,OB,Behavioral The patient and/or their computer help desk representative will achieve their patient-specific goals related [...] CDT 12:10 PM CDT Migel LARES - BEAKER POCT Performing Organization Address [facility] Phon e Number FV POINT [...] 8:10 CDT AM CDT Migel LARES - BEAKER POCT Performing Organization Address [facility] Phon e Number FV POINT OF CARE TEST, GLUCOSE POINT OF CARE TEST, GLUCOSE Tacrolimus level (02/08/2014 6:42 AM CDT) [facility] gist Method Time Signature Tacrolimus Not Provided [facility] Last Dose [facility] LABS Tacrolimus 10.0 5.0 - [facility] Level 15.0 ug/L [place] [...] Performing Organization Address City/[facility] Code Phon e Number [facility] [address] [place] [address] [facility] LABS (ABNORMAL) INR (02/08/2014 6:42 AM CDT) P athologist Signature INR 1.28 (H) 0.86 - 1.14 [facility] LABS Specimen Anatomical Collection Method Collection Time Receive d Time (Source) Location / / Volume Laterality Blood specimen 02/08/2014 6:42 AM 014 6:43 (specimen) CDT AM CDT Omaira Chavez PA-C LAB - BLOOD ORDERABLES Performing Organization Address City/State/ZIP Code Phon e Number [facility] [address] LABS (ABNORMAL) Basic metabolic panel (02/08/2014 6:42 AM CDT) Patholo gist Method Time Signature Sodium 144 133 - 144 [facility] mmol/L [facility] LABS Potassium 3.9 3.4 - 5.3 [facility] mmol/L [facility] LABS Chloride 110 (H) 94 - 109 [facility] mmol/L [facility] LABS Carbon Dioxide 25 20 - 32 [facility] mmol/L [facility] LABS Anion Gap 8 6 - 17 [facility] mmol/L [facility] LABS Glucose 144 (H) 60 - 99 [facility] mg/dL [facility] LABS Urea Nitrogen 66 (H) 7 - 30 [facility] mg/dL [facility] LABS Creatinine 2.38 (H) 0.66 - [facility] 1.25 mg/dL [facility] LABS GFR Estimate 28 (L) >60 [facility] mL/min/1.7 [place] m2 CAMPUS LABS GFR Estimate If 34 (L) >60 [facility] Black mL/min/1.7 [place] [address] CAMPUS LABS Calcium 9.4 8.5 - 10.4 [facility] mg/dL [facility] LABS Specimen Anatomical Collection Method Collection Time Receive d Time (Source) Location / / Volume Laterality Blood specimen 02/08/2014 6:42 AM 014 6:43 (specimen) CDT AM CDT Omaira Chavez PA-C LAB - BLOOD ORDERABLES Performing Organization Address City/State/ZIP Code Phon e Number [facility] [address] [place], [place] [id number] [place] [address] LABS Phosphorus (02/08/2014 6:42 AM CDT) P [...] Phon e Number [facility] [address] LABS Magnesium (02/08/2014 6:42 AM CDT) P athologist Signature Magnesium 2.2 1.6 - 2.3 [facility] mg/dL CAMPUS LABS Specimen Anatomical Collection Method Collection Time Receive d Time (Source) Location / / Volume Laterality Blood specimen 02/08/2014 6:42 AM 014 6:43 (specimen) CDT AM CDT Omaira Chavez PA-C LAB - BLOOD ORDERABLES Performing Organization Address City/State/ZIP Code Phon e Number [facility] [address] [place] [address] [facility] LABS (ABNORMAL) CBC with platelets differential (02/08/2014 6:42 AM CDT) Patholo gist Method Time Signature WBC 4.8 4.0 - [facility] 11.0 [place] 10e9/L [place] LABS RBC Count 2.56 (L) 4.4 - 5.9 [facility] 10e12/L [facility] LABS Hemoglobin 7.8 (L) 13.3 - [facility] 17.7 g/dL [facility] LABS Hematocrit 23.5 (L) 40.0 - [facility] 53.0 % [facility] LABS MCV 92 78 - 100 [facility] fl [facility] LABS MCH 30.5 26.5 - [facility] 33.0 pg [facility] LABS MCHC 33.2 31.5 - [facility] 36.5 g/dL [facility] LABS RDW 14.5 10.0 - [facility] 15.0 % [facility] LABS Platelet Count 70 (L) 150 - 450 [facility] 10e9/L [facility] LABS Diff Method Automated [facility] Method [facility] LABS % Neutrophils 86.3 % [facility] LABS % Lymphocytes 3.1 % [facility] LABS % Monocytes 9.4 % [facility] LABS % Eosinophils 1.0 % [facility] LABS % Basophils 0.0 % [facility] LABS % Immature 0.2 % [facility] Granulocytes [facility] LABS Absolute 4.1 1.6 - 8.3 [facility] Neutrophil 10e9/L [facility] LABS Absolute 0.2 (L) 0.8 - 5.3 [facility] Lymphocytes 10e9/L [facility] LABS Absolute 0.5 0.0 - 1.3 [facility] Monocytes 10e9/L [facility] LABS Absolute 0.1 0.0 - 0.7 [facility] Eosinophils 10e9/L [facility] LABS Absolute 0.0 0.0 - 0.2 [facility] Basophils 10e9/L [place] [facility] LABS Abs Immature 0.0 0 - 0.4 [facility] Granulocytes 10e9/L [facility] LABS Specimen Anatomical Collection Method Collection Time Receive d Time (Source) Location / / Volume Laterality Blood specimen 02/08/2014 6:42 AM 014 6:43 (specimen) CDT AM CDT Omaira Chavez PA-C LAB - BLOOD ORDERABLES Performing Organization Address City/State/ZIP Code Phon e Number [address] [address] [facility] LABS (ABNORMAL) Glucose by meter (02/07/2014 10:18 PM CDT) P athologist Signature Glucose 233 (H) 60 - 99 POINT OF CARE mg/dL TEST, GLUCOSE Specimen Anatomical Collection Method Collection Time Receive d Time (Source) Location / / Volume Laterality 02/07/2014 10:18 02/07/2014 PM CDT 10:20 PM CDT Migel LARES - ROBERT POCT [...] 7:25 CDT PM CDT Migel LARES - ROBERT [...] LARES - ROBERT POCT Performing Organization Address City/[facility]/ZIP Code Phon e Number FV POINT OF [...] Signature INR 1.25 (H) 0.86 - 1.14 [facility] LABS Specimen Anatomical Collection Method Collection Time Receive d Time (Source) Location / / Volume Laterality Blood specimen 02/07/2014 4:23 AM 014 4:24 (specimen) CDT AM CDT Omaira Chavez PA-C LAB - BLOOD ORDERABLES Performing Organization Address City/State/ZIP Code Phon e Number [address] LABS (ABNORMAL) Basic metabolic panel (02/07/2014 4:23 AM CDT) Patholo gist Method Time Signature Sodium 143 133 - 144 [facility] mmol/L [facility] LABS Potassium 4.1 3.4 - 5.3 [facility] mmol/L [facility] LABS Chloride 109 94 - 109 [facility] mmol/L [facility] LABS Carbon Dioxide 24 20 - 32 [facility] mmol/L [facility] LABS Anion Gap 10 6 - 17 [facility] mmol/L [facility] LABS Glucose 185 (H) 60 - 99 [facility] mg/dL [facility] LABS Urea Nitrogen 77 (H) 7 - 30 [facility] mg/dL [facility] LABS Creatinine 3.02 (H) 0.66 - [facility] 1.25 mg/dL [facility] LABS GFR Estimate 21 (L) >60 [facility] mL/min/1.7 [place] m2 CAMPUS LABS GFR Estimate If 26 (L) >60 [facility] Black mL/min/1.7 [place] [address] CAMPUS LABS Calcium 9.3 8.5 - 10.4 [facility] mg/dL [facility] LABS Specimen Anatomical Collection Method Collection Time Receive d Time (Source) Location / / Volume Laterality Blood specimen 02/07/2014 4:23 AM 014 4:24 (specimen) CDT AM CDT Omaira Chavez PA-C LAB - BLOOD ORDERABLES Performing Organization Address City/[facility]/ZIP Code Phon e Number [address] LABS Phosphorus (02/07/2014 4:23 AM CDT) [...] Phon e Number [facility] [address] [facility] LABS Magnesium (02/07/2014 4:23 AM CDT) P athologist Signature Magnesium 2.1 1.6 - 2.3 [facility] mg/dL [place] LABS Specimen Anatomical Collection Method Collection Time Receive d Time (Source) Location / / Volume Laterality Blood specimen 02/07/2014 4:23 AM 014 4:24 (specimen) CDT AM CDT Omaira Chavez PA-C LAB - BLOOD ORDERABLES Performing Organization Address City/State/ZIP Code Phon e Number [facility] [address] [place] [address] [facility] LABS (ABNORMAL) CBC with platelets differential (02/07/2014 4:23 AM CDT) Patholo gist Method Time Signature WBC 2.7 (L) 4.0 - [facility] 11.0 [facility] 10e9/L [place] LABS RBC Count 2.80 (L) 4.4 - 5.9 [facility] 10e12/L [facility] LABS Hemoglobin 8.5 (L) 13.3 - [facility] 17.7 g/dL [facility] LABS Hematocrit 25.8 (L) 40.0 - [facility] 53.0 % [facility] LABS MCV 92 78 - 100 [facility] fl [facility] LABS MCH 30.4 26.5 - [facility] 33.0 pg [facility] LABS MCHC 32.9 31.5 - [facility] 36.5 g/dL [facility] LABS RDW 14.5 10.0 - [facility] 15.0 % [facility] LABS Platelet Count 77 (L) 150 - 450 [facility] 10e9/L [facility] LABS Diff Method Automated [facility] Method [facility] LABS % Neutrophils 87.5 % [facility] LABS % Lymphocytes 3.8 % [facility] LABS % Monocytes 8.7 % [facility] LABS % Eosinophils 0.0 % [facility] LABS % Basophils 0.0 % [facility] LABS % Immature 0.0 % [facility] Granulocytes [facility] LABS Absolute 2.3 1.6 - 8.3 [facility] Neutrophil 10e9/L [facility] LABS Absolute 0.1 (L) 0.8 - 5.3 [facility] Lymphocytes 10e9/L [facility] LABS Absolute 0.2 0.0 - 1.3 [facility] Monocytes 10e9/L [facility] LABS Absolute 0.0 0.0 - 0.7 [facility] Eosinophils 10e9/L [facility] LABS Absolute 0.0 0.0 - 0.2 [facility] Basophils 10e9/L [place] [facility] LABS Abs Immature 0.0 0 - 0.4 [facility] Granulocytes 10e9/L [facility] LABS Specimen Anatomical Collection Method Collection Time Receive d Time (Source) Location / / Volume Laterality Blood specimen 02/07/2014 4:23 AM 014 4:24 (specimen) CDT AM CDT Omaira Chavez PA-C LAB - BLOOD ORDERABLES Performing Organization Address City/[facility]/ZIP Code Phon e Number [address] LABS (ABNORMAL) Hemoglobin A1c (02/07/2014 4:23 AM CDT) Analysis Performed At Patho logist Time Signature Hemoglobin A1C 6.1 (H) 4.3 - 6.0 [facility] LABS Specimen Anatomical Collection Method Collection Time Receive d Time (Source) Location / / Volume Laterality Blood specimen 02/07/2014 4:23 AM 014 4:24 (specimen) CDT AM CDT Omaira Chavez PA-C LAB - BLOOD ORDERABLES Performing Organization Address City/State/ZIP Code Phon e Number [facility] [address] LABS (ABNORMAL) Glucose by meter (02/06/2014 10:06 PM CDT) P athologist Signature Glucose 247 (H) 60 - 99 POINT OF CARE mg/dL TEST, GLUCOSE Specimen Anatomical Collection Method Collection Time Receive d Time (Source) Location / / Volume Laterality 02/06/2014 10:06 02/06/2014 PM CDT 10:10 PM CDT Migel LARES - SUYAPAAKER POCT Performing Organization Address City/State/ZIP Code Phon [...] LAB - BEAJ POCT Performing Organization Address [facility] Phon e Number FV POINT OF CARE TEST, GLUCOSE POINT OF CARE TEST, GLUCOSE (ABNORMAL) Hemoglobin (02/06/2014 4:59 PM CDT) P athologist Signature Hemoglobin 8.8 (L) 13.3 - 17.7 [facility] g/dL [place] LABS Specimen Anatomical Collection Method Collection Time Receive d Time (Source) Location / / Volume Laterality Blood specimen 02/06/2014 4:59 PM 014 5:12 (specimen) CDT PM CDT Omaira Chavez PA-C LAB - BLOOD ORDERABLES Performing Organization Address City/[facility]/ZIP Code Phon e Number [address] [address] [facility] LABS (ABNORMAL) Glucose by meter (02/06/2014 12:01 PM CDT) P athologist Signature Glucose 181 (H) 60 - 99 POINT OF CARE mg/dL TEST, GLUCOSE Specimen Anatomical Collection Method Collection Time Receive d Time (Source) Location / / Volume Laterality 02/06/2014 12:01 02/06/2014 PM CDT 12:05 PM CDT Migel Merchant MD LAB - BEAKER POCT Performing Organization Address City/[facility]/ZIP Code Phon e Number FV POINT OF CARE TEST, GLUCOSE POINT OF CARE TEST, GLUCOSE (ABNORMAL) Partial thromboplastin time (02/06/2014 5:57 AM CDT) athologist Signature PTT 154 (HH) 22 - 37 sec [facility] LABS Comment: Critical Value called to and read back Whitney Poon RN AT 0642. PW Specimen Anatomical Collection Method Collection Time Receive d Time (Source) Location / / Volume Laterality 02/06/2014 5:57 AM 4 6:03 CDT AM CDT Adeline Diaz MD LAB - BLOOD ORDERABLES Performing Organization Address City/[facility]/ZIP Code Phon e Number [facility] [address] LABS Heparin Xa (10a) Level (02/06/2014 5:57 AM CDT) athologist Signature Heparin 10A 0.92 IU/mL [facility] LABS Comment: Therapeutic Range: ?? [...] Phon e Number [facility] [address] LABS (ABNORMAL) INR (02/06/2014 5:57 AM CDT) athologist Signature INR 1.32 (H) 0.86 - 1.14 [facility] Specimen Anatomical Collection Method Collection Time Receive d Time (Source) Location / / Volume Laterality Blood specimen 02/06/2014 5:57 AM 014 6:03 (specimen) CDT AM CDT Omaira Chavez PA-C LAB - BLOOD ORDERABLES Performing Organization Address City/[facility]/ZIP Code Phon e Number [facility] [address] LABS (ABNORMAL) Basic metabolic panel (02/06/2014 5:57 AM CDT) [facility] Method Time Signature Sodium 142 133 - 144 [facility] mmol/L [facility] LABS Potassium 4.7 3.4 - 5.3 [facility] mmol/L [facility] LABS Chloride 106 94 - 109 [facility] mmol/L [facility] LABS Carbon Dioxide 28 20 - 32 [facility] mmol/L [facility] LABS Anion Gap 8 6 - 17 [facility] mmol/L [facility] LABS Glucose 196 (H) 60 - 99 [facility] mg/dL [facility] LABS Urea Nitrogen 71 (H) 7 - 30 [facility] mg/dL [facility] LABS Creatinine 3.96 (H) 0.66 - [facility] 1.25 mg/dL [facility] LABS GFR Estimate 15 (L) >60 [facility] mL/min/1.7 [place] m2 CAMPUS LABS GFR Estimate If 19 (L) >60 [facility] Black mL/min/1.[address] LABS Calcium 9.4 8.5 - 10.4 [facility] mg/dL [facility] LABS Specimen Anatomical Collection Method Collection Time Receive d Time (Source) Location / / Volume Laterality Blood specimen 02/06/2014 5:57 AM 014 6:03 (specimen) CDT AM CDT Omaira Chavez PA-C LAB - BLOOD ORDERABLES Performing Organization Address City/State/ZIP Code Phon e Number [facility] [address] LABS Phosphorus (02/06/2014 5:57 AM CDT) athologist Signature Phosphorus 4.5 2.5 - 4.5 [facility]ERSITY mg/dL CAMPUS LABS Specimen Anatomical Collection Method Collection Time Receive d Time (Source) Location / / Volume Laterality Blood specimen 02/06/2014 5:57 AM 014 6:03 (specimen) CDT AM CDT Omaira Chavez PA-C LAB - BLOOD ORDERABLES Performing Organization Address City/State/ZIP Code Phon e Number [facility] [address] [place], [place] [id number] [place] [address] LABS Magnesium (02/06/2014 5:57 AM CDT) P athologist Signature Magnesium 1.9 1.6 - 2.3 [facility] mg/dL [place] LABS Specimen Anatomical Collection Method Collection Time Receive d Time (Source) Location / / Volume Laterality Blood specimen 02/06/2014 5:57 AM 014 6:03 (specimen) CDT AM CDT Omaira Chavez PA-C LAB - BLOOD ORDERABLES Performing Organization Address City/[facility]/ZIP Code Phon e Number [facility] [address] [place] [address] [facility] LABS (ABNORMAL) CBC with platelets differential (02/06/2014 5:57 AM CDT) Patholo gist Method Time Signature WBC 5.1 4.0 - [facility] 11.0 [facility] 10e9/L [place] LABS RBC Count 3.13 (L) 4.4 - 5.9 [facility] 10e12/L [facility] LABS Hemoglobin 9.6 (L) 13.3 - [facility] 17.7 g/dL [facility] LABS Hematocrit 29.0 (L) 40.0 - [facility] 53.0 % [facility] LABS MCV 93 78 - 100 [facility] fl [facility] LABS MCH 30.7 26.5 - [facility] 33.0 pg [facility] LABS MCHC 33.1 31.5 - [facility] 36.5 g/dL [facility] LABS RDW 14.5 10.0 - [facility] 15.0 % [facility] LABS Platelet Count 85 (L) 150 - 450 [facility] 10e9/L [facility] LABS Diff Method Automated [facility] Method [facility] LABS % Neutrophils 86.0 % [facility] LABS % Lymphocytes 5.1 % [facility] LABS % Monocytes 8.7 % [facility] LABS % Eosinophils 0.0 % [facility] LABS % Basophils 0.0 % [facility] LABS % Immature 0.2 % [facility] Granulocytes [facility] LABS Absolute 4.4 1.6 - 8.3 [facility] Neutrophil 10e9/L [facility] LABS Absolute 0.3 (L) 0.8 - 5.3 [facility] Lymphocytes 10e9/L [facility] LABS Absolute 0.4 0.0 - 1.3 [facility] Monocytes 10e9/L [facility] LABS Absolute 0.0 0.0 - 0.7 [facility] Eosinophils 10e9/L [place] [...] Phon e Number [facility] [address] [place], [place] [id number] [place] [address] LABS (ABNORMAL) Lipid panel reflex to direct LDL (02/06/2014 5:57 AM CDT) P athologist Signature Cholesterol 126 <200 mg/dL [facility] LABS Comment: LDL Cholesterol is the primary guide to therapy. The NCEP recommends further evaluation of: patients with cholesterol greater than 200 mg/dL if additional risk facto rs are present, cholesterol greater than 240 mg/dL, triglycerides greater than 1 50 mg/dL, or HDL less than 40 mg/dL. Triglycerides 100 0 - 150 mg/dL [facility] ITY [place] LABS HDL Cholesterol 35 (L) >40 mg/dL [facility] Y [place] LABS LDL Cholesterol Calculated 71 0 - 129 mg/dL [facility] LABS Comment: LDL Cholesterol is the primary guide to therapy: LDL-cholesterol goal in high risk patients is <100 mg/dL and in very high risk patients is <70 mg/dL. VLDL-Cholesterol 20 0 - 30 mg/dL [facility] LAB[facility] Cholesterol/HDL Ratio 3.6 0.0 - 5.0 [facility] UNI VERSITY [place] LABS Specimen Anatomical Collection Method Collection Time Receive d Time (Source) Location / / Volume Laterality Blood specimen 02/06/2014 5:57 AM 06/18/2 014 6:03 (specimen) CDT AM CDT Omaira Chavez PA-C LAB - BLOOD ORDERABLES Performing Organization Address City/State/ZIP Code Phon e Number [facility] [address] [place] [address] [facility] LABS Tacrolimus level (02/06/2014 5:57 AM CDT) [facility] gist Method Time Signature Tacrolimus S Negative [facility] Last Dose [facility] LABS Tacrolimus 12.7 5.0 - [facility] Level 15.0 ug/L [place] [...] Performing Organization Address City/[facility]/ZIP Code Phon e Number [facility] [address] LABS (ABNORMAL) Glucose by meter (02/06/2014 3:21 AM CDT) P athologist Signature Glucose 216 (H) 60 - 99 POINT OF CARE mg/dL TEST, GLUCOSE Specimen Anatomical Collection Method Collection Time Receive d Time (Source) Location / / Volume Laterality 02/06/2014 3:21 AM 4 3:25 CDT AM CDT Migel Merchant MD LAB - BEAKER POCT Performing Organization Address City/[facility]/ZIP Code Phon e Number FV POINT OF CARE TEST, GLUCOSE POINT OF CARE TEST, GLUCOSE (ABNORMAL) Hemoglobin (02/06/2014 1:02 AM CDT) athologist Signature Hemoglobin 10.2 (L) 13.3 - [facility] 17.7 g/dL [place] LABS Specimen Anatomical Collection Method Collection Time Receive d Time (Source) Location / / Volume Laterality Blood specimen 02/06/2014 1:02 AM 014 1:11 (specimen) CDT AM CDT Deysi Alicea MD LAB - BLOOD ORDERABLES Performing Organization Address City/[facility]/ZIP Code Phon e Number [address] LABS (ABNORMAL) Glucose by meter (02/05/2014 10:23 PM CDT) P athologist Signature Glucose 254 (H) 60 - 99 POINT OF CARE mg/dL TEST, GLUCOSE Specimen Anatomical Collection Method Collection Time Receive d Time (Source) Location / / Volume Laterality 02/05/2014 10:23 02/05/2014 PM CDT 10:25 PM CDT Migel Merchant MD LAB - BEAKER POCT Performing Organization Address City/[facility]/ZIP Code Phon e Number FV POINT OF CARE TEST, GLUCOSE POINT OF CARE TEST, GLUCOSE Heparin 10a Level (02/05/2014 7:32 PM CDT) P athologist Signature Heparin 10A 0.64 IU/mL [facility] LABS Comment: Therapeutic Range: ?? [...] Address City/State/ZIP Code Phon e Number [address] LABS (ABNORMAL) Glucose by meter (02/05/2014 6:04 [...] LARES - BEAJ POCT Performing Organization Address City/[facility]/ZIP Code Phon e Number FV POINT OF CARE TEST, GLUCOSE POINT OF CARE TEST, GLUCOSE (ABNORMAL) Glucose by meter (02/05/2014 12:55 PM CDT) P athologist Signature Glucose 146 (H) 60 - 99 POINT OF CARE mg/dL TEST, GLUCOSE Specimen Anatomical Collection Method Collection Time Receive d Time (Source) Location / / Volume Laterality 02/05/2014 12:55 02/05/2014 1:00 PM CDT PM CDT Migel LARES - BEAKER POCT Performing Organization Address City/[facility]/ZIP Code Phon e Number FV POINT OF CARE TEST, GLUCOSE POINT OF CARE TEST, GLUCOSE (ABNORMAL) INR (02/05/2014 12:04 PM CDT) P athologist Signature INR 1.24 (H) 0.86 - 1.14 [facility] LABS Specimen Anatomical Collection Method Collection Time Receive d Time (Source) Location / / Volume Laterality Blood specimen 02/05/2014 12:04 4 (specimen) PM CDT 12:10 PM CDT Teresa Wright [facility] LAB - BLOOD ORDERABLES Performing Organization Address City/[facility]/ZIP Code Phon e Number [address] [address] [facility] LABS (ABNORMAL) CBC with platelets (02/05/2014 12:04 PM CDT) Patholo gist Method Time Signature WBC 7.4 4.0 - 11.0 [facility] 10e9/L [facility] LABS RBC Count 3.31 (L) 4.4 - 5.9 [facility] 10e12/L [facility] LABS Hemoglobin 10.3 (L) 13.3 - [facility] 17.7 g/dL [facility] LABS Hematocrit 31.0 (L) 40.0 - [facility] 53.0 % [facility] LABS MCV 94 78 - 100 [facility] fl [facility] LABS MCH 31.1 26.5 - [facility] 33.0 pg [facility] LABS MCHC 33.2 31.5 - [facility] 36.5 g/dL [facility] LABS RDW 14.7 10.0 - [facility] 15.0 % [facility] LABS Platelet Count 91 (L) 150 - 450 [facility] 10e9/L [facility] LABS Specimen Anatomical Collection Method Collection Time Receive d Time (Source) Location / / Volume Laterality Blood specimen 02/05/2014 12:04 4 (specimen) PM CDT 12:10 PM CDT Omaira Chavez PA-C LAB - BLOOD ORDERABLES Performing Organization Address City/State/ZIP Code Phon e Number [phone] [place] [address] LABS (ABNORMAL) Glucose by meter (02/05/2014 11:25 [...] CDT 10:39 AM CDT Migel LARES - ROBERT POCT Performing Organization Address City/[facility]/ZIP Code Phon e Number FV POINT OF [...] LAB - BEAJ POCT Performing Organization Address City/[facility]/ZIP Code Phon e Number FV POINT OF CARE TEST, GLUCOSE POINT OF CARE TEST, GLUCOSE (ABNORMAL) Basic metabolic panel (02/05/2014 7:02 AM CDT) [facility] gist Method Time Signature Sodium 143 133 - 144 [facility] mmol/L [facility] LABS Potassium 4.3 3.4 - 5.3 [facility] mmol/L [facility] LABS Chloride 107 94 - 109 [facility] mmol/L [facility] LABS Carbon Dioxide 25 20 - 32 [facility] mmol/L [facility] LABS Anion Gap 10 6 - 17 [facility] mmol/L [facility] LABS Glucose 123 (H) 60 - 99 [facility] mg/dL [facility] LABS Urea Nitrogen 66 (H) 7 - 30 [facility] mg/dL [facility] LABS Creatinine 4.77 (H) 0.66 - [facility] 1.25 mg/dL [facility] LABS GFR Estimate 12 (L) >60 [facility] mL/min/1.7 [facility]2 [facility]US LABS GFR Estimate If 15 (L) >60 [facility] Black mL/min/1.7 [place] [address] CAMPUS LABS Calcium 9.4 8.5 - 10.4 [facility] mg/dL [facility] LABS Specimen Anatomical Collection Method Collection Time Receive d Time (Source) Location / / Volume Laterality Blood specimen 02/05/2014 7:02 AM 014 7:05 (specimen) CDT AM CDT Omaira Chavez PA-C LAB - BLOOD ORDERABLES Performing Organization Address City/[facility]/ZIP Code Phon e Number [facility] [address] LABS (ABNORMAL) Phosphorus (02/05/2014 7:02 AM CDT) P athologist Signature Phosphorus 5.7 (H) 2.5 - 4.5 [facility] mg/dL [place] LABS Specimen Anatomical Collection Method Collection Time Receive d Time (Source) Location / / Volume Laterality Blood specimen 02/05/2014 7:02 AM 014 7:05 (specimen) CDT AM CDT Omaira Chavez PA-C LAB - BLOOD ORDERABLES Performing Organization Address City/[facility]/ZIP Code Phon e Number [facility] [address] LABS Magnesium (02/05/2014 7:02 AM CDT) P athologist Signature Magnesium 2.0 1.6 - 2.3 [facility] mg/dL [place] LABS Specimen Anatomical Collection Method Collection Time Receive d Time (Source) Location / / Volume Laterality Blood specimen 02/05/2014 7:02 AM 014 7:05 (specimen) CDT AM CDT Omaira Chavez PA-C LAB - BLOOD ORDERABLES Performing Organization Address City/[facility]/ZIP Code Phon e Number [facility] [address] [place], [place] [phone] [place] [address] LABS (ABNORMAL) CBC with platelets differential (02/05/2014 7:02 AM CDT) Patholo gist Method Time Signature WBC 8.9 4.0 - [facility] 11.0 [place] 10e9/L [place] LABS RBC Count 3.20 (L) 4.4 - 5.9 [facility] 10e12/L [facility] LABS Hemoglobin 9.7 (L) 13.3 - [facility] 17.7 g/dL [facility] LABS Hematocrit 30.0 (L) 40.0 - [facility] 53.0 % [facility] LABS MCV 94 78 - 100 [facility] fl [facility] LABS MCH 30.3 26.5 - [facility] 33.0 pg [facility] LABS MCHC 32.3 31.5 - [facility] 36.5 g/dL [facility] LABS RDW 14.6 10.0 - [facility] 15.0 % [facility] LABS Platelet Count 96 (L) 150 - 450 [facility] 10e9/L [facility] LABS Diff Method Automated [facility] Method [facility] LABS % Neutrophils 90.2 % [facility] LABS % Lymphocytes 4.4 % [facility] LABS % Monocytes 5.2 % [facility] LABS % Eosinophils 0.0 % [facility] % Basophils 0.0 % [facility] LABS % Immature 0.2 % [facility] Granulocytes [facility] LABS Absolute 8.1 1.6 - 8.3 [facility] Neutrophil 10e9/L [facility] LABS Absolute 0.4 (L) 0.8 - 5.3 [facility] Lymphocytes 10e9/L [facility] LABS Absolute 0.5 0.0 - 1.3 [facility] Monocytes 10e9/L [facility] LABS Absolute 0.0 0.0 - 0.7 [facility] Eosinophils 10e9/L [place] [...] Address City/State/ZIP Code Phon e Number [phone] [place] [address] LABS (ABNORMAL) Parathormone intact (02/05/2014 7:02 AM CDT) Patholo gist Method Time Signature Parathyroid 362 (H) 12 - 72 [facility] Hormone Intact pg/mL [facility] LABS Specimen Anatomical Collection Method Collection Time Receive d Time (Source) Location / / Volume Laterality Blood specimen 02/05/2014 7:02 AM 014 7:05 (specimen) CDT AM CDT Sina Robison MD LAB - BLOOD ORDERABLES Performing Organization Address [facility] Code Phon e Number [address] LABS (ABNORMAL) Ferritin (02/05/2014 7:02 AM CDT) P athologist Signature Ferritin 932 (H) 20 - 300 [facility] ng/mL [place] LABS Specimen Anatomical Collection Method Collection Time Receive d Time (Source) Location / / Volume Laterality Blood specimen 02/05/2014 7:02 AM 014 7:05 (specimen) CDT AM CDT Sina Robison MD LAB - BLOOD ORDERABLES Performing Organization Address [facility] Code Phon e Number [address] LABS (ABNORMAL) Iron and iron binding capacity (02/05/2014 7:02 AM CDT) Analysis Performed At Patho logist Time Signature Iron 119 35 - 180 [facility] ug/dL [facility] LABS Iron Binding 207 (L) 240 - 430 [facility] Cap ug/dL [facility] LABS Iron Saturation 58 (H) 15 - 46 % [facility] Index [facility] LABS Specimen Anatomical Collection Method Collection Time Receive d Time (Source) Location / / Volume Laterality Blood specimen 02/05/2014 7:02 AM 014 7:05 (specimen) CDT AM CDT Sina Robison MD LAB - BLOOD ORDERABLES Performing Organization Address City/[facility]/ZIP Code Phon e Number [facility] [address] LABS (ABNORMAL) Glucose by meter (02/05/2014 [...] LAB - BEAKER POCT Performing Organization Address City/[facility]/ZIP Code Phon e Number FV POINT OF [...] LAB - BEAJ POCT Performing Organization Address City/[facility]/ZIP Code Phon e Number FV POINT OF [...] LAB - ROBERT POCT Performing Organization Address City/[facility]/ZIP Code Phon e Number FV POINT OF [...] 2:05 CDT AM CDT Migel LARES - ROBERT POCT Performing Organization Address City/[facility]/ZIP Code Phon e Number FV POINT OF CARE TEST, GLUCOSE POINT OF CARE TEST, GLUCOSE (ABNORMAL) Glucose by meter (02/05/2014 1:06 AM CDT) P athologist Signature Glucose 122 (H) 60 - 99 POINT OF CARE mg/dL TEST, GLUCOSE Specimen Anatomical Collection Method Collection Time Receive d Time (Source) Location / / Volume Laterality 02/05/2014 1:06 AM 4 1:10 CDT AM CDT Migel LARES - ROBERT POCT Performing Organization Address City/[facility]/ZIP Code Phon e Number FV POINT OF [...] LARES - ROBERT POCT Performing Organization Address City/[facility]/ZIP Code Phon e Number FV POINT OF [...] Carr MD ECG ORDERABLES Performing Organization Address City/[facility]/ZIP Code Phon e Number RADIOLOGY RESULTS (ABNORMAL) Glucose by meter (02/04/2014 10:56 PM CDT) P athologist Signature Glucose 161 (H) 60 - 99 POINT OF CARE mg/dL TEST, GLUCOSE Specimen Anatomical Collection Method Collection Time Receive d Time (Source) Location / / Volume Laterality 02/04/2014 10:56 02/04/2014 PM CDT 11:00 PM CDT Migel LARES - ROBERT POCT Performing Organization Address City/[facility]/ZIP Code Phon e Number FV POINT OF [...] LARES - ROBERT POCT Performing Organization Address City/[facility]/ZIP Code Phon e Number FV POINT OF [...] LAB - ROBERT POCT Performing Organization Address City/[facility]/ZIP Code Phon e Number FV POINT OF [...] athologist Signature Troponin I 0.016 0.000 - [facility] 0.034 ug/L [place] LABS Specimen Anatomical Collection Method Collection Time Receive d Time (Source) Location / / Volume Laterality Blood specimen 02/04/2014 7:10 PM 014 7:23 (specimen) CDT PM CDT Adeline Diaz MD LAB - BLOOD ORDERABLES Performing Organization Address City/[facility]/ZIP Code Phon e Number [phone] [place] [address] LABS (ABNORMAL) Glucose by meter (02/04/2014 7:01 PM CDT) P athologist Signature Glucose 157 (H) 60 - 99 POINT OF CARE mg/dL TEST, GLUCOSE Specimen Anatomical Collection Method Collection Time Receive d Time (Source) Location / / Volume Laterality 02/04/2014 7:01 PM 4 7:05 CDT PM CDT Migel Merchant MD LAB - BEAKER POCT Performing Organization Address City/[facility]/ZIP Code Phon e Number FV POINT OF [...] LAB - BEAKER POCT Performing Organization Address City/[facility]/ZIP Code Phon e Number FV POINT OF [...] 4:10 CDT PM CDT Migel LARES - [facility] POCT Performing Organization [...] LAB - BEAKER POCT Performing Organization Address City/[facility]/ZIP Code Phon e Number FV POINT OF [...] Troponin I (02/04/2014 12:42 PM CDT) athologist [facility] Troponin I ES 0.025 0.000 - [facility] 0.034 ug/L CAMPUS LABS Specimen Anatomical Collection Method Collection Time Receive d Time (Source) Location / / Volume Laterality Blood specimen 02/04/2014 12:42 4 (specimen) PM CDT 12:45 PM CDT Adeline Diaz MD LAB - BLOOD ORDERABLES Performing Organization Address City/State/ZIP Code Phon e Number [facility] [address] [place] [address] [facility] LABS (ABNORMAL) Glucose by meter (02/04/2014 12:27 PM CDT) P athologist Signature Glucose 140 (H) 60 - 99 POINT OF CARE mg/dL TEST, GLUCOSE Specimen Anatomical Collection Method Collection Time Receive d Time (Source) Location / / Volume Laterality 02/04/2014 12:27 02/04/2014 PM CDT 12:30 PM CDT Migel LARES - ROBERT POCT Performing Organization Address [facility]/ZIP Code Phon e Number FV POINT OF CARE TEST, GLUCOSE POINT OF CARE TEST, GLUCOSE (ABNORMAL) Glucose by meter (02/04/2014 10:56 AM CDT) P athologist Signature Glucose 152 (H) 60 - 99 POINT OF CARE mg/dL TEST, GLUCOSE Specimen Anatomical Collection Method Collection Time Receive d Time (Source) Location / / Volume Laterality 02/04/2014 10:56 02/04/2014 AM CDT 11:30 AM CDT Migel LARES - BEAJ POCT Performing Organization Address City/[facility]/ZIP Code Phon e Number FV POINT OF [...] AM CDT Migel Merchant MD LAB - RBOERT POCT Performing Organization Address [facility]/ZIP Code Phon e Number FV POINT OF CARE TEST, GLUCOSE POINT OF CARE TEST, GLUCOSE EKG 12-lead, complete (02/04/2014 9:21 AM CDT) [facility] Method Time Signature Interpretation ECG Click View RADIOLOGY Image link RESULTS to view waveform and result Specimen (Source) Anatomical Collection Method Collection Time Re ceived Time Location / / Volume Laterality 02/04/2014 9:21 AM CDT Omaira Chavez PA-C ECG ORDERABLES Performing Organization Address [facility]/ZIP [facility] [place]on e Number RADIOLOGY RESULTS (ABNORMAL) Glucose by meter (02/04/2014 9:02 AM CDT) P athologist Signature Glucose 203 (H) 60 - 99 POINT OF CARE mg/dL TEST, GLUCOSE Specimen Anatomical Collection Method Collection Time Receive d Time (Source) Location / / Volume Laterality 02/04/2014 9:02 AM 4 9:05 CDT AM CDT Migel Merchant MD LAB - ROBERT POCT Performing Organization Address [facility]/ZIP Code Phon e Number FV POINT OF [...] LAB - ROBERT POCT Performing Organization Address [facility]/ZIP [facility] Phon e Number FV [...] LAB - ROBERT POCT Performing Organization Address [facility] Phon e Number FV POINT OF CARE TEST, GLUCOSE POINT OF CARE TEST, GLUCOSE EKG 12-lead, complete (02/04/2014 7:03 AM CDT) Patholo gist Method Time Signature Interpretation ECG Click View RADIOLOGY Image link RESULTS to view waveform and result Specimen (Source) Anatomical Collection Method Collection Time Re ceived Time Location / / Volume Laterality 02/04/2014 7:03 AM CDT Caitlin Oewns MD ECG ORDERABLES Performing Organization Address [facility] Phon e Number RADIOLOGY RESULTS [...] Signature Troponin I ES <0.012 0.000 - [facility] 0.034 ug/L CAMPUS LABS Specimen Anatomical Collection Method Collection Time Receive d Time (Source) Location / / Volume Laterality 02/04/2014 5:49 AM 201 4 5:51 CDT AM CDT Caitlin Owens MD LAB - BLOOD ORDERABLES Performing Organization Address City/State/ZIP Code Phon e Number [facility] [address] LABS (ABNORMAL) Basic metabolic panel (02/04/2014 5:49 AM CDT) Patholo gist Method Time Signature Sodium 142 133 - 144 [facility] mmol/L [facility] Potassium 4.9 3.4 - 5.3 [facility] mmol/L [facility] Chloride 107 94 - 109 [facility] mmol/L [facility] [place] LAB[facility] Carbon Dioxide 23 20 - 32 [facility] mmol/L [facility] LAB[facility] Anion Gap 12 6 - 17 [facility] mmol/L [facility] LABS Glucose 151 (H) 60 - 99 [facility] mg/dL [facility] [place] [facility] Urea Nitrogen 57 (H) 7 - 30 [facility] mg/dL [facility] [place] [facility] Creatinine 5.94 (H) 0.66 - [facility] 1.25 mg/dL [facility] GFR Estimate 10 (L) >60 [facility] mL/min/1.7 [facility] m2 [facility]AMPUS LABS GFR Estimate If 12 (L) >60 [facility] Black mL/min/1.7 [place] [address] CAMPUS LABS Calcium 9.4 8.5 - 10.4 [facility] mg/dL [facility] LABS Specimen Anatomical Collection Method Collection Time Receive d Time (Source) Location / / Volume Laterality Blood specimen 02/04/2014 5:49 AM 014 5:51 (specimen) CDT AM CDT Omaira Chavez PA-C LAB - BLOOD ORDERABLES Performing Organization Address City/State/ZIP Code Phon e Number [facility] [address] LABS (ABNORMAL) Phosphorus (02/04/2014 5:49 AM CDT) athologist Signature Phosphorus 6.3 (H) 2.5 - 4.5 [facility] mg/dL [place] LABS Specimen Anatomical Collection Method Collection Time Receive d Time (Source) Location / / Volume Laterality Blood specimen 02/04/2014 5:49 AM 014 5:51 (specimen) CDT AM CDT Omaira Chavez PA-C LAB - BLOOD ORDERABLES Performing Organization Address City/[facility] Phon e Number [facility] [address] LABS Magnesium (02/04/2014 5:49 AM CDT) athologist Signature Magnesium 2.1 1.6 - 2.3 [facility] mg/dL [place] LABS Specimen Anatomical Collection Method Collection Time Receive d Time (Source) Location / / Volume Laterality Blood specimen 02/04/2014 5:49 AM 014 5:51 (specimen) CDT AM CDT Omaira Chavez PA-C LAB - BLOOD ORDERABLES Performing Organization Address City/State/[facility] Code Phon e Number [facility] [address] [place] [address] [facility] LABS (ABNORMAL) CBC with platelets differential (02/04/2014 5:49 AM CDT) [facility] gist Method Time Signature WBC 13.8 (H) 4.0 - [facility] 11.0 [place] 10e9/L [place] LABS RBC Count 3.10 (L) 4.4 - 5.9 [facility] 10e12/L [facility] LABS Hemoglobin 9.5 (L) 13.3 - [facility] 17.7 g/dL [facility] LABS Hematocrit 28.7 (L) 40.0 - [facility] 53.0 % [facility] LABS MCV 93 78 - 100 [facility] fl [facility] LABS MCH 30.6 26.5 - [facility] 33.0 pg [facility] LABS MCHC 33.1 31.5 - [facility] 36.5 g/dL [facility] LABS RDW 14.6 10.0 - [facility] 15.0 % [facility] LABS Platelet Count 91 (L) 150 - 450 [facility] 10e9/L [facility] LAB[facility] Diff Method Automated [facility] Method [facility] LABS % Neutrophils 95.8 % [facility] % Lymphocytes 1.2 % [facility] % Monocytes 2.8 % [facility] % Eosinophils 0.0 % [facility] [place] [facility] LAB[facility] % Basophils 0.0 % [facility] % Immature 0.2 % [facility] Granulocytes [facility] LABS Absolute 13.2 (H) 1.6 - 8.3 [facility] Neutrophil 10e9/L [facility] LABS Absolute 0.2 (L) 0.8 - 5.3 [facility] Lymphocytes 10e9/L [facility] LABS Absolute 0.4 0.0 - 1.3 [facility] Monocytes 10e9/L [facility] LABS Absolute 0.0 0.0 - 0.7 [facility] Eosinophils 10e9/L [place] [...] Address City/State/ZIP Code Phon e Number [phone] [place] [address] LABS (ABNORMAL) Glucose by meter (02/04/2014 5:33 [...] LARES - ROBERT POCT Performing Organization Address [facility]/ZIP Code Phon e Number FV POINT OF [...] LARES - ROBERT POCT Performing Organization Address [facility] Code Phon e Number FV [...] LARES - ROBERT POCT Performing Organization Address [facility] Code Phon e Number FV [...] 02/04/2014 AM CDT 12:10 AM CDT Migel JONES POCT Performing Organization Address [facility] Code Phon e Number FV [...] LARES - ROBERT POCT Performing Organization Address City/[facility]/ZIP Code Phon e Number FV POINT OF CARE TEST, GLUCOSE POINT OF CARE TEST, GLUCOSE Potassium (02/03/2014 10:16 PM CDT) athologist Signature Potassium 4.8 3.4 - 5.3 [facility] mmol/L CAMPUS LABS Specimen Anatomical Collection Method Collection Time Receive d Time (Source) Location / / Volume Laterality Blood specimen 02/03/2014 10:16 4 (specimen) PM CDT 10:19 PM CDT Caitlin Owens MD LAB - BLOOD ORDERABLES Performing Organization Address [facility] Phon e Number [address] LABS (ABNORMAL) Hemoglobin (02/03/2014 10:16 PM CDT) athologist Signature Hemoglobin 9.4 (L) 13.3 - 17.7 [facility] g/dL [place] LABS Specimen Anatomical Collection Method Collection Time Receive d Time (Source) Location / / Volume Laterality Blood specimen 02/03/2014 10:16 4 (specimen) PM CDT 10:19 PM CDT Caitlin Owens MD LAB - BLOOD ORDERABLES Performing Organization Address City/[facility]/ZIP [facility] Phon e Number [facility] [address] LABS (ABNORMAL) Glucose by meter (02/03/2014 9:55 PM CDT) athologist Signature Glucose 167 (H) 60 - 99 POINT OF CARE mg/dL TEST, GLUCOSE Specimen Anatomical Collection Method Collection Time Receive d Time (Source) Location / / Volume Laterality 02/03/2014 9:55 PM 4 CDT 10:00 PM CDT Migel Merchant MD LAB - BEAJ POCT Performing Organization Address City/[facility]/ZIP Code Phon e Number FV POINT OF [...] LAB - BEAJ POCT Performing Organization Address City/[facility]/ZIP Code Phon e Number FV POINT OF [...] athologist Signature Potassium 4.7 3.4 - 5.3 [facility] mmol/L CAMPUS LABS Specimen Anatomical Collection Method Collection Time Receive d Time (Source) Location / / Volume Laterality Blood specimen 02/03/2014 6:52 PM 014 6:53 (specimen) CDT PM CDT Caitlin Owens MD LAB - BLOOD ORDERABLES Performing Organization Address City/[facility]/ZIP Code Phon e Number [facility] [address] LABS (ABNORMAL) Hemoglobin (02/03/2014 6:52 PM CDT) athologist Signature Hemoglobin 9.6 (L) 13.3 - 17.7 [facility] g/dL [place] [facility] Specimen Anatomical Collection Method Collection Time Receive d Time (Source) Location / / Volume Laterality Blood specimen 02/03/2014 6:52 PM 014 6:53 (specimen) CDT PM CDT Caitlin Owens MD LAB - BLOOD ORDERABLES Performing Organization Address City/[facility]/ZIP Code Phon e Number [facility] [address] LABS (ABNORMAL) Glucose by meter (02/03/2014 6:00 PM CDT) athologist Signature Glucose 140 (H) 60 - 99 POINT OF CARE mg/dL TEST, GLUCOSE Specimen Anatomical Collection Method Collection Time Receive d Time (Source) Location / / Volume Laterality 02/03/2014 6:00 PM 4 6:05 CDT PM CDT Migel JONES POCT Performing Organization Address City/[facility]/ZIP Code Phon e Number FV POINT OF CARE TEST, GLUCOSE POINT OF CARE TEST, GLUCOSE (ABNORMAL) Glucose by meter (02/03/2014 5:09 PM CDT) P athologist Signature Glucose 154 (H) 60 - 99 POINT OF CARE mg/dL TEST, GLUCOSE Specimen Anatomical Collection Method Collection Time Receive d Time (Source) Location / / Volume Laterality 02/03/2014 5:09 PM 4 5:11 CDT PM CDT Migel JONES POCT Performing Organization Address City/[facility]/ZIP Code Phon e Number FV POINT OF [...] LAB - BEAKER POCT Performing Organization Address City/[facility]/ZIP Code Phon e Number FV POINT OF [...] LAB - BEAKER POCT Performing Organization Address [facility] Phon e Number FV POINT OF CARE TEST, GLUCOSE POINT OF CARE TEST, GLUCOSE Potassium (02/03/2014 1:41 PM CDT) athologist Signature Potassium 4.7 3.4 - 5.3 [facility] mmol/L CAMPUS LABS Specimen Anatomical Collection Method Collection Time Receive d Time (Source) Location / / Volume Laterality Blood specimen 02/03/2014 1:41 PM 014 1:43 (specimen) CDT PM CDT Caitlin Owens MD LAB - BLOOD ORDERABLES Performing Organization Address [facility] Code Phon e Number [address] LABS (ABNORMAL) Hemoglobin (02/03/2014 1:41 PM CDT) athologist Signature Hemoglobin 9.8 (L) 13.3 - 17.7 [facility] g/dL [place] LABS Specimen Anatomical Collection Method Collection Time Receive d Time (Source) Location / / Volume Laterality Blood specimen 02/03/2014 1:41 PM 014 1:43 (specimen) CDT PM CDT Caitlin Owens MD LAB - BLOOD ORDERABLES Performing Organization Address City/[facility] Phon e Number [address] [facility]AMP[facility] LABS (ABNORMAL) Glucose by meter (02/03/2014 1:10 [...] LAB - ROBERT POCT Performing Organization Address City/[facility]/ZIP Code Phon e Number FV POINT OF [...] LAB - BEAKER POCT Performing Organization Address City/[facility]/ZIP Code Phon e Number FV POINT OF CARE TEST, GLUCOSE POINT OF CARE TEST, GLUCOSE Potassium (02/03/2014 10:11 AM CDT) P athologist Signature Potassium 4.8 3.4 - 5.3 [facility] mmol/L [place] LABS Specimen Anatomical Collection Method Collection Time Receive d Time (Source) Location / / Volume Laterality Blood specimen 02/03/2014 10:11 4 (specimen) AM CDT 10:23 AM CDT Caitlin Owens MD LAB - BLOOD ORDERABLES Performing Organization Address City/[facility]/ZIP Code Phon e Number [facility] [address] [place], [place] [phone] [place] [address] LABS (ABNORMAL) Hemoglobin (02/03/2014 10:11 AM CDT) athologist Signature Hemoglobin 9.7 (L) 13.3 - 17.7 [facility] g/dL [place] LABS Specimen Anatomical Collection Method Collection Time Receive d Time (Source) Location / / Volume Laterality Blood specimen 02/03/2014 10:11 4 (specimen) AM CDT 10:23 AM CDT Caitlin Owens MD LAB - BLOOD ORDERABLES Performing Organization Address City/[facility]/ZIP Code Phon e Number [facility] [address] [place], [place] [phone] [place] [address] LABS (ABNORMAL) Glucose by meter (02/03/2014 9:58 AM CDT) athologist Signature Glucose 168 (H) 60 - 99 POINT OF CARE mg/dL TEST, GLUCOSE Specimen Anatomical Collection Method Collection Time Receive d Time (Source) Location / / Volume Laterality 02/03/2014 9:58 AM 4 CDT 10:00 AM CDT Migel LARES - ROBERT POCT Performing Organization Address City/[facility]/ZIP Code Phon e Number FV POINT OF [...] LARES - ROBERT POCT Performing Organization Address City/[facility]/ZIP Code Phon e Number FV POINT OF [...] the original. EXAMINATION: US RENAL TRANSPLANT 02/04/20 8:39 AM COMPARISON: None. HISTORY: To look [...] LARES - ROBERT POCT Performing Organization Address [facility] Phon e Number FV POINT [...] LARES - ROBERT POCT Performing Organization Address [facility] Phon e Number FV POINT [...] LARES - BEAJ POCT Performing Organization Address [facility] Phon e Number FV POINT OF CARE TEST, GLUCOSE POINT OF CARE TEST, GLUCOSE (ABNORMAL) Basic metabolic panel (02/03/2014 5:38 AM CDT) [facility] gist Method Time Signature Sodium 141 133 - 144 [facility] mmol/L [facility] [place] LABS Potassium 4.4 3.4 - 5.3 [facility] mmol/L [facility] LABS Chloride 105 94 - 109 [facility] mmol/L [facility] LABS Carbon Dioxide 20 20 - 32 [facility] mmol/L [facility] [place] LABS Anion Gap 15 6 - 17 [facility] mmol/L [facility] LABS Glucose 170 (H) 60 - 99 [facility] mg/dL [facility] LABS Urea Nitrogen 49 (H) 7 - 30 [facility] mg/dL [facility] LABS Creatinine 6.38 (H) 0.66 - [facility] 1.25 mg/dL [facility] LABS GFR Estimate 9 (L) >60 [facility] mL/min/1.7 [place] m2 CAMPUS LABS GFR Estimate If 11 (L) >60 [facility] Black mL/min/1.7 [place] m2 CAMPUS LABS Calcium 9.1 8.5 - 10.4 [facility] mg/dL [facility] LABS Specimen Anatomical Collection Method Collection Time Receive d Time (Source) Location / / Volume Laterality Blood specimen 02/03/2014 5:38 AM 014 5:40 (specimen) CDT AM CDT Omaira Chavez PA-C LAB - BLOOD ORDERABLES Performing Organization Address City/[facility]/ZIP Code Phon e Number [facility] [address] LABS (ABNORMAL) Phosphorus (02/03/2014 5:38 AM CDT) P athologist Signature Phosphorus 4.7 (H) 2.5 - 4.5 [facility] mg/dL [place] LABS Specimen Anatomical Collection Method Collection Time Receive d Time (Source) Location / / Volume Laterality Blood specimen 02/03/2014 5:38 AM 014 5:40 (specimen) CDT AM CDT Omaira Chavez PA-C LAB - BLOOD ORDERABLES Performing Organization Address City/State/ZIP Code Phon e Number [facility] [address] LABS Magnesium (02/03/2014 5:38 AM CDT) P athologist Signature Magnesium 2.0 1.6 - 2.3 [facility] mg/dL [place] LABS Specimen Anatomical Collection Method Collection Time Receive d Time (Source) Location / / Volume Laterality Blood specimen 02/03/2014 5:38 AM 014 5:40 (specimen) CDT AM CDT Omaira Chavez PA-C LAB - BLOOD ORDERABLES Performing Organization Address City/State/ZIP Code Phon e Number [facility] [address] LABS (ABNORMAL) CBC with platelets differential (02/03/2014 5:38 AM CDT) Patholo gist Method Time Signature WBC 13.2 (H) 4.0 - [facility] 11.0 [facility] 10e9/L [place] LABS RBC Count 3.20 (L) 4.4 - 5.9 [facility] 10e12/L [facility] LABS Hemoglobin 9.9 (L) 13.3 - [facility] 17.7 g/dL [facility] LABS Hematocrit 30.2 (L) 40.0 - [facility] 53.0 % [facility] LABS MCV 94 78 - 100 [facility] fl [facility] LABS MCH 30.9 26.5 - [facility] 33.0 pg [facility] LABS MCHC 32.8 31.5 - [facility] 36.5 g/dL [facility] LABS RDW 14.5 10.0 - [facility] 15.0 % [facility] LABS Platelet Count 108 (L) 150 - 450 [facility] 10e9/L [facility] LABS Diff Method Automated [facility] Method [facility] LABS % Neutrophils 96.9 % [facility] % Lymphocytes 0.7 % [facility] % Monocytes 2.1 % [facility] LABS % Eosinophils 0.0 % [facility] LABS % Basophils 0.1 % [facility] LABS % Immature 0.2 % [facility] Granulocytes [facility] LABS Absolute 12.8 (H) 1.6 - 8.3 [facility] Neutrophil 10e9/L [facility] LABS Absolute 0.1 (L) 0.8 - 5.3 [facility] Lymphocytes 10e9/L [facility] LABS Absolute 0.3 0.0 - 1.3 [facility] Monocytes 10e9/L [facility] LABS Absolute 0.0 0.0 - 0.7 [facility] Eosinophils 10e9/L [place] [...] Phon e Number [facility] [address] [place] [address] [facility] LABS (ABNORMAL) Hemoglobin A1c (02/03/2014 5:38 AM CDT) Analysis Performed At Patho logist Time Signature Hemoglobin A1C 6.2 (H) 4.3 - 6.0 [facility] Specimen Anatomical Collection Method Collection Time Receive d Time (Source) Location / / Volume Laterality Blood specimen 02/03/2014 5:38 AM 014 5:40 (specimen) CDT AM CDT Caitlin Owens MD LAB - BLOOD ORDERABLES Performing Organization Address City/[facility]/ZIP Code Phon e Number [facility] [address] [place] [address] [facility] LABS (ABNORMAL) Glucose by meter (02/03/2014 5:05 AM CDT) P athologist Signature Glucose 176 (H) 60 - 99 POINT OF CARE mg/dL TEST, GLUCOSE Specimen Anatomical Collection Method Collection Time Receive d Time (Source) Location / / Volume Laterality 02/03/2014 5:05 AM 4 5:10 CDT AM CDT Migel LARES - BEAKER [...] LARES - ROBERT POCT Performing Organization Address City/[facility]/ZIP Code Phon e Number FV POINT OF [...] 2:05 CDT AM CDT Migel LARES - ROBERT POCT Performing Organization Address [facility] Phon e Number FV POINT OF CARE TEST, GLUCOSE POINT OF CARE TEST, GLUCOSE Potassium (02/03/2014 1:18 AM CDT) athologist Signature Potassium 4.7 3.4 - 5.3 [facility] mmol/L CAMPUS LABS Specimen Anatomical Collection Method Collection Time Receive d Time (Source) Location / / Volume Laterality Blood specimen 02/03/2014 1:18 AM 014 1:20 (specimen) CDT AM CDT Caitlin Owens MD LAB - BLOOD ORDERABLES Performing Organization Address [facility] Phon e Number [address] LABS (ABNORMAL) Hemoglobin (02/03/2014 1:18 AM CDT) athologist Signature Hemoglobin 9.8 (L) 13.3 - 17.7 [facility] g/dL CAMPUS LABS Specimen Anatomical Collection Method Collection Time Receive d Time (Source) Location / / Volume Laterality Blood specimen 02/03/2014 1:18 AM 014 1:20 (specimen) CDT AM CDT Caitlin Owens MD LAB - BLOOD ORDERABLES Performing Organization Address [facility] Phon e Number [address] LABS (ABNORMAL) Glucose by meter (02/03/2014 1:16 AM CDT) P athologist Signature Glucose 186 (H) 60 - 99 POINT OF CARE mg/dL TEST, GLUCOSE Specimen Anatomical Collection Method Collection Time Receive d Time (Source) Location / / Volume Laterality 02/03/2014 1:16 AM 4 1:20 CDT AM CDT Migel Merchant MD LAB - BEAKER POCT Performing Organization Address City/[facility] Phon e Number FV POINT [...] LAB - BEAKER POCT Performing Organization Address [facility] Phon e Number FV POINT [...] athologist Signature Phosphorus 4.4 2.5 - 4.5 [facility] mg/dL [place] LABS Specimen Anatomical Collection Method Collection Time Receive d Time (Source) Location / / Volume Laterality Blood specimen 02/02/2014 10:50 4 (specimen) PM CDT 11:06 PM CDT Caitlin Owens MD LAB - BLOOD ORDERABLES Performing Organization Address City/State/ZIP Code Phon e Number [facility] [address] [place] [address] [facility] LABS Magnesium (02/02/2014 10:50 PM CDT) athologist Signature Magnesium 1.8 1.6 - 2.3 [facility] mg/dL CAMPUS LABS Specimen Anatomical Collection Method Collection Time Receive d Time (Source) Location / / Volume Laterality Blood specimen 02/02/2014 10:50 4 (specimen) PM CDT 11:06 PM CDT Caitlin Owens MD LAB - BLOOD ORDERABLES Performing Organization Address City/[facility]/ZIP Code Phon e Number [facility] [address] [place], [place] [phone] [place] [address] LABS (ABNORMAL) Basic metabolic panel (02/02/2014 10:50 PM CDT) [facility] Method Time Signature Sodium 138 133 - 144 [facility] mmol/L [facility] [place] LABS Potassium 4.5 3.4 - 5.3 [facility] mmol/L [facility] LABS Chloride 104 94 - 109 [facility] mmol/L [facility] LABS Carbon Dioxide 25 20 - 32 [facility] mmol/L [facility] LABS Anion Gap 10 6 - 17 [facility] mmol/L [facility] LABS Glucose 134 (H) 60 - 99 [facility] mg/dL [facility] LABS Urea Nitrogen 44 (H) 7 - 30 [facility] mg/dL [facility] LABS Creatinine 6.14 (H) 0.66 - [facility] 1.25 mg/dL [facility] LABS GFR Estimate 9 (L) >60 [facility] mL/min/1.7 [facility] m2 CAMPUS LABS GFR Estimate If 11 (L) >60 [facility] Black mL/min/1.7 [place] m2 CAMPUS LABS Calcium 8.8 8.5 - 10.4 [facility] mg/dL [facility] LABS Specimen Anatomical Collection Method Collection Time Receive d Time (Source) Location / / Volume Laterality Blood specimen 02/02/2014 10:50 4 (specimen) PM CDT 11:06 PM CDT Caitlin Owens MD LAB - BLOOD ORDERABLES Performing Organization Address City/[facility]/ZIP Code Phon e Number [facility] [address] [place] [address] [facility] LABS (ABNORMAL) CBC with platelets differential (02/02/2014 10:50 PM CDT) [facility] Method Time Signature WBC 8.2 4.0 - [facility] 11.0 [place] 10e9/L [place] LABS RBC Count 3.34 (L) 4.4 - 5.9 [facility] 10e12/L [facility] LABS Hemoglobin 10.3 (L) 13.3 - [facility] 17.7 g/dL [facility] LABS Hematocrit 30.9 (L) 40.0 - [facility] 53.0 % [facility] LABS MCV 93 78 - 100 [facility] fl [facility] LABS MCH 30.8 26.5 - [facility] 33.0 pg [facility] LABS MCHC 33.3 31.5 - [facility] 36.5 g/dL [facility] LABS RDW 14.3 10.0 - [facility] 15.0 % [facility] LABS Platelet Count 79 (L) 150 - 450 [facility] 10e9/L [facility] LABS Diff Method Automated [facility] Method [facility] LABS % Neutrophils 96.7 % [facility] LABS % Lymphocytes 1.6 % [facility] LABS % Monocytes 1.2 % [facility] LABS % Eosinophils 0.4 % [facility] % Basophils 0.0 % [facility] LABS % Immature 0.1 % [facility] Granulocytes [facility] LABS Absolute 7.9 1.6 - 8.3 [facility] Neutrophil 10e9/L [facility] LABS Absolute 0.1 (L) 0.8 - 5.3 [facility] Lymphocytes 10e9/L [facility] LABS Absolute 0.1 0.0 - 1.3 [facility] Monocytes 10e9/L [facility] LABS Absolute 0.0 0.0 - 0.7 [facility] Eosinophils 10e9/L [place] [...] Address City/State/ZIP Code Phon e Number [phone] [place] [address] LABS (ABNORMAL) VENOUS PANEL (02/02/2014 10:09 PM CDT) [facility] Method Time Signature Ph Venous 7.31 (L) 7.32 - [facility] 7.43 pH [facility] LABS PCO2 Venous 52 (H) 40 - 50 [facility] mm Hg [facility] LABS PO2 Venous 34 25 - 47 [facility] mm Hg [facility] LABS Bicarbonate 26 21 - 28 [facility] Venous mmol/L [facility] LABS Base Deficit 0.3 mmol/L [facility] Venous [facility] LABS Comment: Reference range: -7.7 to 1.9 FIO2 45 [facility] LABS Sodium 137 133 - 144 mmol/L [facility] LABS Potassium 4.4 3.4 - 5.3 mmol/L [facility] LABS Hemoglobin 10.0 (L) 13.3 - 17.7 g/dL [facility] LABS Glucose 116 (H) 60 - 99 mg/dL [facility] LABS Calcium Ionized Whole Blood 4.8 4.4 - 5.2 mg/dL [facility] LABS Specimen Anatomical Collection Method Collection Time Receive d Time (Source) Location / / Volume Laterality 02/02/2014 10:09 02/02/2014 PM CDT 10:14 PM CDT Migel Merchant MD LAB - BLOOD ORDERABLES Performing Organization Address City/[facility]/ZIP Code Phon e Number [phone] [place] [address] LABS (ABNORMAL) Glucose by meter (02/02/2014 9:24 PM CDT) P athologist Signature Glucose 129 (H) 60 - 99 POINT OF CARE mg/dL TEST, GLUCOSE Specimen Anatomical Collection Method Collection Time Receive d Time (Source) Location / / Volume Laterality 02/02/2014 9:24 PM 4 9:31 CDT PM CDT Migel Merchant MD LAB - BEAKER POCT Performing Organization Address City/[facility]/ZIP Code Phon e Number FV POINT OF [...] LAB - BEAKER POCT Performing Organization Address City/[facility]/ZIP Code Phon e Number FV POINT OF CARE TEST, GLUCOSE POINT OF CARE TEST, GLUCOSE (ABNORMAL) VENOUS PANEL (02/02/2014 6:40 PM CDT) athologist Signature Ph Venous 7.35 7.32 - [facility] 7.43 pH [facility] LABS PCO2 Venous 50 40 - 50 mm [facility] Hg [facility] LABS PO2 Venous 46 25 - 47 mm [facility] Hg [facility] LABS Bicarbonate 28 21 - 28 [facility] Venous mmol/L [facility] LABS Base Excess 1.8 mmol/L [facility] Venous [facility] LABS Comment: Reference range: -7.7 to 1.9 FIO2 100% [facility] LABS Sodium 141 133 - 144 mmol/L [facility] LABS Potassium 3.7 3.4 - 5.3 mmol/L [facility] LABS Hemoglobin 10.3 (L) 13.3 - 17.7 g/dL [facility] LABS Glucose 76 60 - 99 mg/dL [facility] LABS Calcium Ionized Whole Blood 4.8 4.4 - 5.2 mg/dL [facility] LABS Specimen Anatomical Collection Method Collection Time Receive d Time (Source) Location / / Volume Laterality 02/02/2014 6:40 PM 4 6:44 CDT PM CDT Migel Merchant MD LAB - BLOOD ORDERABLES Performing Organization Address City/State/ZIP Code Phon e Number [phone] [place] [address] LABS Glucose by meter (02/02/2014 5:11 PM CDT) athologist Signature Glucose 89 60 - 99 POINT OF CARE mg/dL TEST, GLUCOSE Specimen Anatomical Collection Method Collection Time Receive d Time (Source) Location / / Volume Laterality 02/02/2014 5:11 PM 4 5:15 CDT PM CDT Migel Merchant MD LAB - BEAKER POCT Performing Organization Address City/State/ZIP Code Phon e Number FV POINT OF CARE TEST, GLUCOSE POINT OF CARE TEST, GLUCOSE (ABNORMAL) Glucose by meter (02/02/2014 3:45 PM CDT) athologist Signature Glucose 100 (H) 60 - 99 POINT OF CARE mg/dL TEST, GLUCOSE Specimen Anatomical Collection Method Collection Time Receive d Time (Source) Location / / Volume Laterality 02/02/2014 3:45 PM 4 3:50 CDT PM CDT Migel Merchant MD [facility] POCT Performing Organization Address [...] findings. AIRAM MONTANA MD Caitlin Owens MD IM DIAGNOSTIC IMAGING ORDER MARYELLEN Blood component (02/02/2014 2:07 PM CDT) [facility] Method Time Signature Unit Number [id number] [facility] LABS Blood Red Blood [facility] Component Cells [facility] Leukocyte [place] [facility] Reduced Division 00 [facility] Number [facility] LABS Status of No longer [facility] Unit available [facility] 02/06/2014 HOSPITAL LAB 0300 Specimen Anatomical Collection Method Collection Time Receive d Time (Source) Location / / Volume Laterality 02/02/2014 2:07 PM 4 2:10 CDT PM CDT Caitlin Owens MD LABORATORY Performing Organization Address City/State/ZIP Code Phon e Number [facility] [address] [place] [address] [facility] LABS [facility] LAB Blood component (02/02/2014 2:07 PM CDT) [facility] Method Time Signature Unit Number [id number] [facility] LABS Blood Red Blood [facility] Component Cells [facility] Leukocyte [place] [facility] Red[facility] Status of No longer [facility] Unit available [facility] 02/06/2014 HOSPITAL LAB 0300 Specimen Anatomical Collection Method Collection Time Receive d Time (Source) Location / / Volume Laterality 02/02/2014 2:07 PM 4 2:10 CDT PM CDT Caitlin Owens MD LABORATORY Performing Organization Address City/[facility]/ZIP Code Phon e Number [place] [address] [address] [place], [place] [address] [facility] LAB ABO/Rh type and screen (02/02/2014 2:07 PM CDT) [facility] Method Time Signature Units Ordered 2 [facility] LABS ABO A [facility] LABS RH(D) Pos [facility] LABS Antibody Neg [facility] Screen [facility] LABS Test Valid [facility] Only At [facility] BLOOD BANK Center,Aide LAB w Hospital Specimen 02/05/2014 [facility] BLOOD BANK LAB Crossmatch Red Blood [facility] Cells [facility] LABS Specimen Anatomical Collection Method Collection Time Receive d Time (Source) Location / / Volume Laterality Blood specimen 02/02/2014 2:07 PM 014 2:10 (specimen) CDT PM CDT Caitlin Owens MD LAB - BLOOD BANK TEST ORDER Performing Organization Address City/State/ZIP Code Phon e Number [facility] [address] [place] [address] [facility] LABS [facility] BLOOD BANK LAB (ABNORMAL) Lipid Profile (02/02/2014 2:07 PM CDT) P athologist Signature Cholesterol 135 <200 mg/dL [facility] LABS Comment: LDL Cholesterol is the primary guide to therapy. The NCEP recommends further evaluation of: patients with cholesterol greater than 200 mg/dL if additional risk facto rs are present, cholesterol greater than 240 mg/dL, triglycerides greater than 1 50 mg/dL, or HDL less than 40 mg/dL. Triglycerides 124 0 - 150 mg/dL [facility] ITY [place] LABS HDL Cholesterol 34 (L) >40 mg/dL [facility] LABS LDL Cholesterol Calculated 77 0 - 129 mg/dL [facility] Comment: LDL Cholesterol is the primary guide to therapy: LDL-cholesterol goal in high risk patients is <100 mg/dL and in very high risk patients is <70 mg/dL. VLDL-Cholesterol 25 0 - 30 mg/dL [facility] Cholesterol/HDL Ratio 4.0 0.0 - 5.0 [facility] Specimen Anatomical Collection Method Collection Time Receive d Time (Source) Location / / Volume Laterality Blood specimen 02/02/2014 2:07 PM 2 014 2:08 (specimen) CDT PM CDT Caitlin Owens MD LAB - BLOOD ORDERABLES Performing Organization Address City/[facility]/ZIP Code Phon e Number [address] LABS (ABNORMAL) Hemoglobin A1c (02/02/2014 2:07 PM CDT) Analysis Performed At Patho logist Time Signature Hemoglobin A1C 6.2 (H) 4.3 - 6.0 [facility] Specimen Anatomical Collection Method Collection Time Receive d Time (Source) Location / / Volume Laterality Blood specimen 02/02/2014 2:07 PM 2 014 2:08 (specimen) CDT PM CDT Caitlin Owens MD LAB - BLOOD ORDERABLES Performing Organization Address City/State/ZIP Code Phon e Number [address] LABS Hepatitis C antibody (02/02/2014 2:07 PM CDT) Patholo gist Method Time Signature Hepatitis C Negative NEG [facility] Antibody MICROBIOLOGY Specimen Anatomical Collection Method Collection Time Receive d Time (Source) Location / / Volume Laterality Blood specimen 02/02/2014 2:07 PM 2 014 2:08 (specimen) CDT PM CDT Caitlin Owens MD LAB - BLOOD ORDERABLES Performing Organization Address City/[facility]/ZIP Code Phon e Number [facility] [address] [place], [place] [id number] [place] [address] MICROBIOLOGY Hepatitis B core antibody IgM (02/02/2014 2:07 PM CDT) [facility] Method Time Signature Hepatitis B Negative NEG [facility] Core IgM MICROBIOLOGY Specimen Anatomical Collection Method Collection Time Receive d Time (Source) Location / / Volume Laterality Blood specimen 02/02/2014 2:07 PM 014 2:08 (specimen) CDT PM CDT Caitlin Owens MD LAB - BLOOD ORDERABLES Performing Organization Address City/[facility]/ZIP Code Phon e Number [facility] [address] MICROBIOLOGY Hepatitis B surface antigen (02/02/2014 2:07 PM CDT) [facility] Method Time Signature Hep B Surface Negative NEG [facility] Agn MICROBIOLOGY Specimen Anatomical Collection Method Collection Time Receive d Time (Source) Location / / Volume Laterality Blood specimen 02/02/2014 2:07 PM 2 014 2:08 (specimen) CDT PM CDT Caitlin Owens MD LAB - BLOOD ORDERABLES Performing Organization Address City/[facility]/ZIP Code Phon e Number [facility] [address] [place], [place] [id number] [place] [address] MICROBIOLOGY HIV Antigen Antibody Combo (02/02/2014 2:07 PM CDT) [facility] Method Time Signature HIV Antigen Nonreactive NR [facility] Antibody HIV-1 p24 Ag & HIV-1/HIV-2 Ab Not Detected [facility] LABS Specimen Anatomical Collection Method Collection Time Receive d Time (Source) Location / / Volume Laterality Blood specimen 02/02/2014 2:07 PM 014 2:08 (specimen) CDT PM CDT Caitlin Owens MD LAB - BLOOD ORDERABLES Performing Organization Address City/[facility]/ZIP Code Phon e Number [facility] [address] [place], [place] [id number] [place] [address] [facility] LABS EBV Capsid Antibody IgM (02/02/2014 2:07 PM CDT) [facility] Method Time Signature EBV Capsid <0.2 0.0 - 0.8 [facility] Antibody IgM No detectable antibody. [facility] Specimen Anatomical Collection Method Collection Time Receive d Time (Source) Location / / Volume Laterality Blood specimen 02/02/2014 2:07 PM 014 2:08 (specimen) CDT PM CDT Caitlin Owens MD LAB - BLOOD ORDERABLES Performing Organization Address City/[facility]/ZIP Code Phon e Number [facility] [address] LABS (ABNORMAL) EBV Capsid Antibody IgG (02/02/2014 2:07 PM CDT) [facility] Method Time Signature EBV Capsid >8.0 0.0 - 0.8 [facility] Antibody IgG Positive, suggests recent or past exposure [facility] [place] [facility] Specimen Anatomical Collection Method Collection Time Receive d Time (Source) Location / / Volume Laterality Blood specimen 02/02/2014 2:07 PM 014 2:08 (specimen) CDT PM CDT Caitlin Owens MD LAB - BLOOD ORDERABLES Performing Organization Address City/[facility]/ZIP Code Phon e Number [facility] [address] LABS CMV antibody IgM (02/02/2014 2:07 PM CDT) Analysis Performed At Patho logist Time Signature CMV Antibody <0.2 0.0 - 0.8 [facility] IgM Negative [facility] Specimen Anatomical Collection Method Collection Time Receive d Time (Source) Location / / Volume Laterality Blood specimen 02/02/2014 2:07 PM 014 2:08 (specimen) CDT PM CDT Caitlin Owens MD LAB - BLOOD ORDERABLES Performing Organization Address City/[facility]/ZIP Code Phon e Number [facility] [address] LABS (ABNORMAL) CMV Antibody IgG (02/02/2014 2:07 PM CDT) P athologist Signature CMV Antibody 7.8 (H) 0.0 - 0.8 [facility] IgG AI [facility] Comment: Positive Specimen Anatomical Collection Method Collection Time Receive d Time (Source) Location / / Volume Laterality Blood specimen 02/02/2014 2:07 PM 014 2:08 (specimen) CDT PM CDT Caitlin Owens MD LAB - BLOOD ORDERABLES Performing Organization Address City/State/ZIP Code Phon e Number [facility] [address] [place] [address] [place] [facility] LABS (ABNORMAL) Comprehensive metabolic panel (02/02/2014 2:07 PM CDT) [facility] gist Method Time Signature Sodium 141 133 - 144 [facility] mmol/L [facility] Potassium 4.2 3.4 - 5.3 [facility] mmol/L [facility] Chloride 101 94 - 109 [facility] mmol/L [facility] Carbon Dioxide 26 20 - 32 [facility] mmol/L [facility] Anion Gap 13 6 - 17 [facility] mmol/L [facility] Glucose 112 (H) 60 - 99 [facility] mg/dL [facility] Urea Nitrogen 42 (H) 7 - 30 [facility] mg/dL [facility] Creatinine 6.03 (H) 0.66 - [facility] 1.25 UNIVERSITY mg/dL CAMPUS LABS GFR Estimate 9 (L) >60 [facility] mL/min/1. [place] [address] LABS GFR Estimate If 11 (L) >60 [facility] Black mL/min/1. [address] LABS Calcium 9.9 8.5 - [facility] 10.4 UNIVERSITY mg/dL CAMPUS LABS Bilirubin Total 0.7 0.2 - 1.3 [facility] mg/dL [facility] Albumin 4.2 3.3 - 4.9 [facility] g/dL [facility] Protein Total 7.5 6.8 - 8.8 [facility] g/dL [facility] Alkaline 88 40 - 150 [facility] Phosphatase U/L [facility] ALT 33 0 - 70 [facility] U/L [facility] AST 18 0 - 45 [facility] U/L [facility] Specimen Anatomical Collection Method Collection Time Receive d Time (Source) Location / / Volume Laterality Blood specimen 02/02/2014 2:07 PM 014 2:08 (specimen) CDT PM CDT Caitlin Owens MD LAB - BLOOD ORDERABLES Performing Organization Address City/State/ZIP Code Phon e Number [facility] [address] [place] [address] [place] [facility] ([facility]NORMAL) CBC with platelets differential (02/02/2014 2:07 PM CDT) [facility] gist Method Time Signature WBC 6.3 4.0 - [facility] 11.0 [place] 10e9/L [place] [facility] RBC Count 3.71 (L) 4.4 - 5.9 [facility] 10e12/L [facility] Hemoglobin 11.5 (L) 13.3 - [facility] 17.7 g/dL [facility] Hematocrit 33.7 (L) 40.0 - [facility] 53.0 % [facility] MCV 91 78 - 100 [facility] fl [facility] MCH 31.0 26.5 - [facility] 33.0 pg [facility] MCHC 34.1 31.5 - [facility] 36.5 g/dL [facility] RDW 14.0 10.0 - [facility] 15.0 % [facility] Platelet Count 110 (L) 150 - 450 [facility] 10e9/L [facility] Diff Method Automated [facility] Method [facility] % Neutrophils 52.4 % [facility] % Lymphocytes 32.1 % [facility] % Monocytes 7.9 % [facility] % Eosinophils 7.1 % [facility] % Basophils 0.3 % [facility] % Immature 0.2 % [facility] Granulocytes [facility] Absolute 3.3 1.6 - 8.3 [facility] Neutrophil 10e9/L [facility] Absolute 2.0 0.8 - 5.3 [facility] Lymphocytes 10e9/L [facility] Absolute 0.5 0.0 - 1.3 [facility] Monocytes 10e9/L [facility] Absolute 0.5 0.0 - 0.7 [facility] Eosinophils 10e9/L [place] [...] Phon e Number [facility] [address] [place] [address] [facility] Creatinine urine calculation only (02/02/2014 2:00 PM CDT) P athologist Signature Creatinine 88 mg/dL [facility] Urine [place] LABS Specimen Anatomical Collection Method Collection Time Receive d Time (Source) Location / / Volume Laterality 02/02/2014 2:00 PM 4 2:12 CDT PM CDT Caitlin Owens MD LAB - URINE ORDERABLES Performing Organization Address City/State/ZIP Code Phon e Number [facility] [address] [place] [address] [facility] LABS (ABNORMAL) Urine culture (02/02/2014 2:00 PM CDT) Component Value Ref Test Analysis Performed At [facility] Range Method Time Signature Specimen Midstream Urine [facility] Description [facility] Special Specimen received [facility] Requests in preservative MICROBIOLOGY Culture Micro <10,000 colonies/mL Gram pos itive cocci No further identification Susceptibility [facility] testing not routinely done [place] CROBIOLOGY <10,000 colonies/mL Strain 2 Gram positive [...] MICRO GENERAL ORDERABL ES Performing Organization Address City/[facility]/ZIP Code Phon e Number [facility] [address] [place] [address] [facility] MICROBIOLOGY (ABNORMAL) Protein random urine (02/02/2014 2:00 PM CDT) [facility] gist Method Time Signature Protein Random 1.89 g/L [facility] Urine [facility] Protein Total 2.15 (H) 0 - 0.2 [facility] Urine g/gr g/g Cr [facility] LABS Specimen Anatomical Collection Method Collection Time Receive d Time (Source) Location / / Volume Laterality Urine specimen URINE SPECIMEN 02/02/2014 2:00 PM 02/02 2:12 (specimen) OBTAINED BY CLEAN CDT PM CDT CATCH PROCEDURE / Unknown Caitlin Owens MD LAB - URINE ORDERABLES Performing Organization Address City/[facility]/ZIP Code Phon e Number [facility] [address] LABS (ABNORMAL) Routine UA with microscopic (02/02/2014 2:00 PM CDT) Patholo gist Method Time Signature Color Urine Light Yellow [facility] Appearance Urine Clear [facility] Glucose Urine 70 (A) NEG mg/dL [facility] Bilirubin Urine Negative NEG [facility] LABS Ketones Urine Negative NEG mg/dL [facility] UNIVERSITY [place] [facility] Specific [place] 1.008 1.003 - [facility] Urine 1.035 UNIVERSITY [place] [facility] Blood Urine Negative [facility]G [facility] pH Urine 8.0 (H) 5.0 - 7.0 [facility] pH [facility] LABS Protein Albumin 100 (A) NEG mg/dL [facility] Urine [facility] Urobilinogen Normal 0.0 - 2.0 [facility] mg/dL mg/dL [facility] Nitrite Urine Negative NEG [facility] Leukocyte Negative NEG [facility] Esterase Urine [facility] Source Clean catch [facility] urine [facility] WBC Urine 1 0 - 2 [...] Phon e Number [facility] [address] [place] [address] [facility] LABS (ABNORMAL) Glucose by meter (02/02/2014 1:59 [...] 12-lead, tracing only (02/02/2014 1:58 PM CDT) [facility] gist Method Time Signature Interpretation ECG [...] transplant - Primary Kidney replaced by transplant S/P kidney transplant Kidney replaced by transplant Atrial fibrillation (H) Atrial fibrillation End stage renal failure on dialysis (H) End stage renal disease Atrial fibrillation (H) Atrial fibrillation Immunosuppressed status (H) Unspecified disorder of immune [...] CONTINUOUS, Starting on 02/03/14 at 1100, Until Tue02/04/14 at 1029 New Bag 02/04/2014 2:59 AM [...] dose, When verbally ordered by the prescriber. [place] throat with 1-4 sprays 5 minutes prior [...] at 125 mL/hr, Intravenous, CONTINUOUS, Starting on 02/02/14 at 2300, Maintenance fluid. Rate/Dose Verify 02/03/2014 [...] 11:15 PM CDT 0.4 mg HYDROmorphone (DILAUDID) [employer] 1 mg/mL Shift Total 02/03/2014 6:24 AM CDT [employer] dose (mg): 0.1, Max [employer] dose (mg): 0.2, Lockout Interval (min): 10 minutes, [employer] Continuous Rate (mg/hr): CONTINUOUS RATE IS NOT [...] 1 g 1 g, Intravenous, ONCE, On 02/02/14 at 2345, For 1 dose, PACU melatonin tablet 1 mg Given 02/04/2014 2:57 AM CDT 1 mg 1 mg, Oral, ONCE PRN, sleep, Starting on 02/04/14 at 0240, For 1 dose methylPREDNISolone sodium [...] PRN, moderate to severe pain, Starting on 02/05/14 at 0750 Given 02/06/2014 1:45 PM CDT 5 mg Given 02/06/2014 12:15 AM CDT 5 mg oxyCODONE (ROXICODONE) immediate release Given 02/05/2014 3:11 A M CDT 10 mg tablet 5-10 mg 5-10 mg, Oral, EVERY 4 HOURS PRN, moderate to severe pain, Starting on 02/03/14 at 1434 Given 02/04/2014 8:18 AM CDT [...] DAILY, First dose (after last modification) on Renetta 02/07/14 at 1200, Indications: PCP prophylaxis Given 02/07/2014 [...] dose, When verbally ordered by the prescriber. [place] throat with 1-4 sprays 5 minutes prior to procedure in the [facility] procedure room , Cardiac Intra-procedure clotrimazole (MYCELEX) lozenge 10 mg 1205 (Given - Pro vider: Ganesh Covarrubias RN)1335 (Given - Provider: Ganesh Covarrubias RN)1952 (Given - Provider: Annmarie Colby RN) 0837 (Given - Provider: Lashaun Braswell, BOGDAN)1347 (Given - Provider: Lashaun Braswell, RN)2004 (Given - Provider: Annmarie Colby RN) 0809 (Given - Provider: Amanda Hernandez RN)1400 [...] 2223 (Given - Provider: Annmarie Colby RN) 15 [...] RN)1951 (Given - Provider: Annmarie Colby RN) 400 mg, Oral, 2 TIMES DAILY, First [...] DAILY, First dose on Tue02/03/14 at 1515 sodium chloride (PF) 0.9% PF [...] (Not Gi isael - Provider: Lynne Gatica [facility] - Reason: Other - Comment: Dose already [...] 2 TIMES DAILY., First dose o n 02/04/14 at 1000, Check if BLOOD LEVEL is [...] (COMPLETED) 1820 (Given - Provider: Lashaun Braswell, BOGDAN) 5 mg, Oral, ONCE AT 6PM, On [...] draw. documented in this encounter Care Teams Machine Puller Relationship Specialty Start Date End Date Momo Forbes PCP - General Family Practice 01/02/14 [facility] [address] [place] [address] Ingrid Santana, RN Registered Nurse Transplant 02/10/12 documented as of this encounter
--- OUTSIDE RECORDS SUMMARY | 2022-06-23 11:28 | XMS_ITS | Encounter Summary ---
:1950 Author Organization [place] Address [address] [place] [address]. [place] [address] Care Team Providers Name Role Phone Ingrid Santana RN Unavailable Unavailable Momo Forbes Primary Care Provider Reason for Visit Reason Comments Transplant Donor culture results Encounter Details Date Type Department Care Team Description 02/04/2014 Documentation Only The Transplant Gladis Yeboah, Transplant (Donor 2nd Floor, Clinic 2A RN culture results) [address] [phone] Social History Tobacco Use Types Packs/Day Years [...] and urine cultures have been uploaded into [employer]. Notification sent to Dr. Rust and Dr. Hernandes. documented in this encounter Plan of Treatment Not on filedocumented as of this encounter Visit Diagnoses Not on filedocumented in this encounter Care Teams Stone Gluer Relationship Specialty Start Date End Date Momo Forbes PCP - General Family Practice 01/02/14 [facility] [address] [place] [address] Ingrid Santana, RN Registered Nurse Transplant 02/10/12 documented as of this encounter
--- OUTSIDE RECORDS SUMMARY | 2022-06-23 11:28 | XMS_ITS | Encounter Summary ---
:1950 Author Organization [place] Address [facility] [place] [address] Care Team Providers Name Role Phone Ingrid Santana RN Unavailable Unavailable Momo Forbes Primary Care Provider Encounter Details Date Type Department Care Team Description 02/02/2014 Results Only LABORATORY RESULTS Migel Merchant MD [address] [place] [address] [address] [place], [place] [id number] (Wo rk) Social History Tobacco Use Types [...] [facility] Method Time Signature Crossmatch Donor:[id number], ?Crossmatch Date:02/02/2014 HISTOTRAC Result (Note) Serum Date [...] / / Volume Laterality 02/02/2014 6:51 PM 02/02/201 4 6:58 CDT PM CDT Migel Merchant MD LAB - IMMUNOLOGY ORDERABLES Performing Organization Address City/State/ZIP Code Phon e Number [facility] Immunology/Histocompatabil [place], [place] [address] ity [facility] [address], Room 3-580 HISTOTRAC documented in this encounter Visit Diagnoses Not on filedocumented in this encounter Care Teams Subacute Nurse Relationship Specialty Start Date End Date Momo Forbes PCP - General Family Practice 01/02/14 [facility] [address] [place] [address] Ingrid Santana, RN Registered Nurse Transplant 02/10/12 documented as of this encounter
--- OUTSIDE RECORDS SUMMARY | 2022-06-23 11:28 | XMS_ITS | Encounter Summary ---
:1950 Author Organization [place] Address [address] [place] [address] Care Team Providers Name Role Phone Ingrid Santana RN Unavailable Unavailable Momo Forbes Primary Care Provider Encounter Details Date Type Department Care Team Description 02/02/2014 Results Only LABORATORY RESULTS Migel Merchant MD [address] [place] [address] [address] [place], [place] [address] (Wo rk) Social History Tobacco Use Types [...] T/B Crossmatch Auto (02/02/2014 6:51 PM CDT) [facility] Method Time Signature Crossmatch Donor:ELINOR GUTHRIE [...] Phon e Number [facility] Immunology/Histocompatabil [place], [place] [address] [facility] [address] [facility] [address] Building, Room 3-580 HISTOTRAC documented in this encounter Visit Diagnoses Not on filedocumented in this encounter Care Teams [employer] Machine Operator Relationship Specialty Start Date End Date Momo Forbes PCP - General Family Practice 01/02/14 [facility] [address] [place] [address] Ingrid Santana, RN Registered Nurse Transplant 02/10/12 documented as of this encounter
--- OUTSIDE RECORDS SUMMARY | 2022-06-23 11:28 | XMS_ITS | Encounter Summary ---
:1950 Author Organization [place] Address [facility] [facility] [place] [address] Care Team Providers Name Role Phone Ingrid Santana RN Unavailable Unavailable Momo Forbes Primary Care Provider Encounter Details Date Type Department Care Team Description 02/02/2014 Abstract The Transplant [facility] 2nd Floor, Clinic [address] [phone] Social History Tobacco Use [...] on filedocumented in this encounter Care Teams [employer] Machine Operator Relationship Specialty Start Date End Date Momo Forbes PCP - General Family Practice 01/02/14 [facility] [address] [place] [address] Ingrid Santana, BOGDAN Registered Nurse Transplant 02/10/12 documented as of this encounter
--- OUTSIDE RECORDS SUMMARY | 2022-06-23 11:28 | XMS_ITS | Encounter Summary ---
:1950 Author Organization [place] Address [address] [place] [address] Care Team Providers Name Role Phone Ingrid Santana RN Unavailable Unavailable Momo Forbes Primary Care Provider Reason for Visit Auth/Cert - Closed Specialty Diagnoses / Procedures Referred By Contact Refer red To Contact Med Surg Diagnoses end stage renal disease dialysis End stage renal failure on dialysis Renal Failure Uu U7a Procedures TRANSPLANT KID[facility] RECIPIENT DONOR [address] [place] [address] Phone: Referral ID Status Reason Start Date Expiration Date Visits Requ ested Visits Authorized [id number] Closed 02/04/2014 08/03/2014 1 1 Encounter Details Date Type Department Care Team Description 02/02/2014 Anesthesia Event LTAC, located within [facility] Joseph Ivey MD XXX RESIGNED XXX [address] [place] [address] PeriOp Services Leigh Ann Blank MD [address] [facility] [address] [place], [place] [address] [address] [place] [address] Anesthesia Record Procedure Summary Procedure Name Responsible Anesthesia Start Anesthesia Stop Anesthesiologist Time Time Kidney Transplant , Joseph Ivey MD 02/02/14 1725 2242 ureteral stent placement (Abdomen) Events Date Time Event Comment 02/02/2014 1725 [...] Hand Inez Mckeon Sara E RN Saima, COVERAGE ANALYST RETIRED ETT 02/02/14; 1753; Airway 02/02/14 1753 by 02/02/14 2228 by Size: 8; Cuffed; Oral Myriam Mandujano, DO Mandujano, Miguel ny, endotracheal tube; Blade Type: Dominick; Blade Size: [...] Take 1 tablet by mouth daily. B okgtyxj-U-vbggk acid (NEPHROCAPS) 1 MG capsule Take 1 [...] benefits and alternatives discussed with: patient or technical services representative. Possibility of blood products discussed. I [...] plan were discussed with patient/family or family technical services representative. All questions were answered and there was agreement to proceed. History & Physical Review Leigh Ann Blank MD Anesthesiology [id number] [phone] 2:47 PM February 02, 2014 Diego Guthrie was seen and examined and the medical history was reviewed with him. The anesthetic plan was discussed, risks were explained and questions were answered. He agrees to proceed as discussed. I have reviewed this note and agree with the assessment and plan. Joseph Ivey M.D. Staff Anesthesiologist [phone] 02/02/2014 4:48 PM documented in this encounter [...] Date/Time Associated Diagnosis Comme nts [facility] Routine 02/02/2014 6:19 PM Re sults for this LINE CATHETER CDT procedure are in PROCEDURE the results section. documented in this encounter Results Central line catheter placement (02/02/2014 6:19 PM CDT) Narrative Myriam Mandujano DO - 02/02/2014 6:19 PM C DT Mryiam Mandujano, DO ? 02/02/2014 ??6:19 PM PROCEDURE [...] Fr, 20 cm, T.L. Secured by s mona Biopatch and Tegaderm dressing used.Assessment/Narrat jo Blood aspirated all lumens:yes Comments: First attempt into right IJ unsuccessful likely 2/2 to clot encounter. Catheter passed easily into LIJ. Hyunnarm Nazia DO [facility] documented in this encounter Visit Diagnoses [...] 5 mg PRN, Starting on 02/02/14 at 2023, Anesthesia Intra-op Given 02/02/2014 9:38 PM CDT [...] Intra-op documented in this encounter Care Teams Marble Installer Relationship Specialty Start Date End Date Momo Forbes PCP - General [facility] Practice 01/02/[address] [address] Ingrid Santana, RN Registered Nurse Transplant 02/10/12 documented as of this encounter
--- OUTSIDE RECORDS SUMMARY | 2022-06-23 11:29 | XMS_ITS | Encounter Summary ---
:1950 Author Organization [facility] Address [address] [place] [address] Care Team Providers Name Role Phone Ingrid Santana RN Unavailable Unavailable Momo Forbes Primary Care Provider Reason for Visit Auth/Cert - Closed Specialty Diagnoses / Procedures Referred By Contact Refer red To Contact Med Surg Diagnoses end stage renal disease dialysis End stage renal failure on dialysis Renal Failure Uu U7a Procedures TRANSPLANT KIDNEY RECIPIENT DONOR [address] [place] [address] Phone: Referral ID Status Reason Start Date Expiration Date Visits Requ ested Visits Authorized [id number] Closed 02/04/2014 08/03/2014 1 1 Encounter Details Date Type Department Care Team Description 02/02/2014 Surgery [facility] Migel Merchant , Kidney Transplant , PeriOp Services ureteral stent [address] [place] [address] [place] [address] [place], [place] [address] (Wo rk) Surgery Details Date/Time Status Location [...] Physician Discharge Summary Patient ID: Diego Guthrie [id number] 63 year old 1950 Admit date: 02/02/2014 [...] Take 1 tablet by mouth daily. B vvixqje-K-oavjf acid (NEPHROCAPS) 1 MG capsule Take 1 [...] of these appointments you will meetwith a attending physician and meet your blending coordinator. Your nurse will also be in communication with your surgeon and attending physician as needed. The direct number to the [facility] is [phone]. In the [facility] [...] the hospital. This will be located in [facility] transplant surgery clinic on the second floor.Your transplant surgeon is: Dr. Merchant. You have a ureteral stent in place which needs to be removed in 4-6 weeks. If a patient scheduler does not contact you for this, please contact your blending coordinator. If you have modesta in place, they will be removed in 3 weeks after operation. Notify your coordinator if you have pain over your kidney, fever greater than 101.5F, or decreased urine output. Notify your coordinator immediately if you are ever unable to take your immunosuppressive medications for any reason. Foreign Service Officer [phone] Diet recommendations post-transplant: Heart healthy dietary habits canal driver (low saturated/trans fat, low sodium). High protein diet x 8 weeks. Practice food safety precautions - no fish/seafood x 3 weeks. Discharge nurse--please fax discharge orders to [facility] and to his PCP with INR [...] >2. He can be seen by any cinema or theatre manager in the outpatient setting for coordination. Continue metoprolol 25 po bid until he is r e-evaluated. We did attempt inpatient REFUGIO guided cardioversion, but the patient developed significant bleeding while on heparin. José Miguel Alvarez M.D. Director Channel Joseph Quintana MD - 02/08/2014 12:35 PM [...] Dr. Quintana. Sina Robison MD Nephrology Fellow [phone] Attestation: This patient has been seen and [...] Ramires RN - 02/07/2014 2:25 PM CDT Accounting Recruiter D: Diego Guthrie 63 year old male POD #5 s/p DDKT for ESRD 2/[address] Diaz note today. Per Dr Diaz, pt will most likely be ready for d/c to home tomorrow and will return to [facility] for 5 days at 0700. Pt [...] him. Pt does not know where the [facility] or transplant clinic is, I told him and he replied I will find it. Pt does not care which [facility] agency will follow him--There are only 2 to choose from, [facility] [phone]/ --I called and left a message with Estrella Fletcher and I fax'd his records tothem--pt will need start of care approx Thursday 02/15. Pt is new on warfarin and I called his PCP's office and they have INR nurses Tuesday-Tuesday their fax # is [phone] (when N visits are completed --pt will call main clinic # to schedule INR draws). 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 I verified his address and phone #(is his cell) on the facesheet. Pt has not met his OP pet caretaker: Leandro Kahn, yet--I sent Leandro an [...] Dr. Quintana. Sina Robison MD Nephrology Fellow [phone] Attestation: This patient has been seen and [...] assistance Medical Decision Making: Medium Subsequent visit 37463 (moderate level decision making) PATO/Fellow/Resident Provider: Adeline [...] results and reevaluate pt. Indu Calixto, PGY1 Michael, Joseph Hernandez MD - 02/06/2014 4:25 PM CDT [facility] Cardiology Progress Note I have seen [...] 66, Cr 4.77 Hgb 9.6 INR 1.3 Jsoeph Quintana MD - 02/06/2014 2:57 PM CDT [...] Seen and discussed with Dr. Quintana. Sina Robiosn MD Nephrology Fellow [phone] Attestation: This patient has been seen and [...] Dr. Quintana. Sina Robison MD Nephrology Fellow [phone] Attestation: This patient has been seen and [...] REPLACEMENT ONLY ??? insulin (regular) Stopped (02/05/14 7267) Shiva Kahn RN - 02/05/2014 4:47 PM CDT BILL PEDDLER NOTE I met with the patient and his yesterday at [facility] PCU-6B (telemetry unit) to discuss transition from inpatient to outpatient care following kidney translantation. 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 He has slow graft function; however, his [...] the plan for daily visits to the [facility] for 5 days after discharge followed [...] meet with the patient again in the [facility] following discharge from [facility]. Michael, Joseph Hernandez MD - 02/05/2014 11:16 AM CDT [facility] Cardiology Progress Note I have seen [...] plan for REFUGIO cardioversion tomorrow, NPO at [place] (orders placed) -- continue heparin and initiate [...] kidney on 02/02/2014. Pt lives alone in [facility] though reports that his girlfriend in in the process of moving in with him. Pt girlfriend, Tete, will be present when pt returns home but she works maritime guard. Pt was on dialysis for 2 1/2 years prior to transplant. Pt works independently but reports that he currently has no income coming in. Pt has primary insurancethrough Medicare and Secondary insurance through [employer]. Pt has no co-pays for his immunosuppressants and a high out of pocket cost for Valcyte, SW to look into grants for pt for Valcyte. I: Met with pt to introduce this residential mortgage underwriter and explain sw role and services available while inpatient in the hospital. Asked if pt had any questions or concerns and completed an assessment of psychosocialneeds post transplant. Provided education about expectations and requirements post discharge like fol low up in the [facility]. Pt is unsure yet if he [...] needs arise prior to discharge. Roopa Castro, CECY, DELIVERER OUTSIDE Indu Calixto MD - 02/05/2014 1:50 AM [...] PT - 02/04/2014 4:57 PM CDT 02/04/14 1084 Quick Adds Type of Visit Initial PT Evaluation Kennel Operator Kennel Operator Present no Language Montenegrin Living Environment (R) Lives With alone Living [...] when pt is available. CECY Kearns, [facility] [phone] phone [phone] pager Joseph Quintana MD - 02/04/2014 11:51 [...] Dr. Quintana. Sina Robison MD Nephrology Fellow [phone] Attestation: This patient has been seen and [...] for this basename: PTHI, in the last 14023 hours IRON STUDIES No results found for this basename: IRON, FEB, IRONSAT, THEE, in the last 81152 hours Imaging: All imaging studies reviewed by [...] absent.. Data: CMP Recent Labs Lab 02/04/14 0502/03/14221502/03/14 0538 02/02/14 2209 02/02/14 1840 02/02/14 1407 [...] or equal to 12.0 mlU/mL. Adeline Diaz [phone] Attestation: The patient has been seen and [...] donor kidney transplant, with stent on 02/02/14. NUCLEAR WORKER TECHNICIAN donor. Graft function:uncertain, Cr slightly up. Slow [...] . Medical Decision Making: Medium Subsequent visit 33841 (moderate level decision making) PATO/Fellow/Resident Provider: Cailtin Owens MD Faculty: Migel Merchant M.D., Ph.D. [...] note and orders. Migel Merchant MD, PhD cvt rn Abdominal Organ Transplantation Carmelita Rosario, RN - 02/03/2014 9:38 AM CDT Patient removed from the OS waitlist after donor kidney transplant. OS ID is [id number]. Rafaela Cardona - 02/03/2014 9:17 AM CDT [...] followed general diet. Patient reports good appetite/intake REAL ESTATE OFFICE MANAGER, no nutrition issues/concnerns. CURRENT NUTRITION ORDERS [...] DDKT ASSESSED NUTRITION NEEDS: Estimated Energy Needs: 0822-2028+ kcals (25-30+ Kcal/Kg) Justification: maintenance post-transplant Estimated [...] (6- 8 weeks). Rec follow heart-healthy diet canal driver. Implementation Nutrition education: Provided instruction on post-transplant diet with discussion regarding protein sources and high protein needs in acute post-tx phase. Reviewed recommendations to follow low fat/lowsodium diet canal driver and discussed heart healthy diet tips. Discussed [...] adjustment. Rafaela Cardona RD, LD Weekend Coverage [phone] Jose Aguirre MD - 02/03/2014 4:57 AM [...] Doing well postoperatively. Pain: Controlled by Dilaudid ACCESS REPRESENTATIVE Diet: NPO tonight Volume Status: Borderline low UOP, continue MIVF, 0.9 % NS 500 cc bolus given for low UOP, CVP not accurate, systolic in 100-110 Recheck hemoglobin and potassium normal. Rest of the plan per primary team. Will continue to follow. Jose Aguirre MD PGY-1.................02/03/2014 Surgery Cross Cover Pager:[phone] documented in this encounter H&P Notes Caitlin [...] 1 tablet by mouth daily. ??? 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 Kidney bx [...] note and orders. Migel Merchant MD, PhD cvt rn Abdominal Organ Transplantation documented in this encounter Consult Notes Joseph Rodriguez MD - 02/04/2014 11:03 AM CDTAssociated Order(s): CARDIOLOGY IP CONSULT [facility] CARDIOLOGY CONSULT SERVICE INITIAL CONSULT NOTE February [...] 1 tablet by mouth daily. ??? 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 José Miguel Alvarez MD Director Channel Pager: [phone] February 04, 2014 Kaitlynn Leon MD - 02/03/2014 9:30 AM CDT Nephrology Initial Consult February 03, 2014 Diego Guthrie Date of : 1950 Date of Admission:02/02/2014 Primary care provider: Momo Forbes Requesting physician: Migel Merchant MD ASSESSMENT AND RECOMMENDATIONS: 1. DDKT - NUCLEAR WORKER TECHNICIAN -59 yo women; slow graft function-no immediate [...] h/o type 2 Dm, who received DDKT (NUCLEAR WORKER TECHNICIAN) on 02/02/2014 donor kidney had severe atherosclerotic [...] ??? Cataract iol, rt/lt both eyes MEDICATIONS: REAL ESTATE OFFICE MANAGER Meds Prior to Admission medications Medication Sig Last Dose Taking? Auth Provider Calcium Carbonate-Vitamin D (CALCIUM + D PO) Take by mouth daily. Reported, Patient lisinopril (PRINIVIL,ZESTRIL) 40 MG tablet Take 40 mg by mouth 2 times daily. Reported, Patient METOPROLOL SUCCINATE PO Take by mouth daily. Reported, Patient aspirin 81 MG tablet Take 1 tablet by mouth daily. Reported, Patient B rylthwa-U-egoht acid (NEPHROCAPS) 1 MG capsule Take 1 [...] Intravenous Central line Once ??? HYDROmorphone Intravenous ACCESS REPRESENTATIVE Infusion Meds ??? 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 Social History Main [...] kg/m2 SpO2 98% Date 02/03/14 07 - 02/04/14 0659 Shift [phone] 7301-2517 24 Hour Total I N T A [...] Lab 02/03/14 0538 02/03/14 0118 02/02/14 2250 02/02/14220802/02/14 1407 HGB 9.9* 9.8* 10.3* 10.0* < [...] for this basename: PTHI, in the last 82229 hours IRON STUDIES No results found for this basename: IRON, FEB, IRONSAT, THEE, in the last 63380 hours Deysi Alicea MD Jarad Cullen MD - 02/02/2014 4:13 PM CDTAssociated Order(s): CARDIOLOGY IP CONSULT INPATIENT CARDIOLOGY CONSULTATION Requesting Provider: iMgel Merchant Indication for Consultation: Preoperative evaluation immediately [...] tablet by mouth daily. 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 Alvin Diego Cardiovascular Disease Fellow [phone] Patient seen and examined by me with [...] Cullen MD, PhD Jarad Cullen MD, PhD [phone] documented in this encounter Nursing Notes Gretta Mary RN - 02/02/2014 11:[address] Owens with Transplant Surgery notified of stat lab results. Magnesium replaced. Dr. Blank with Anesthesia reviewed chest x-ray. CVC not deep enough to give accurate CVP readings, however all lumens aspirate blood well. Patient is ok to transfer to unit 6B per [facility]. documented in this encounter Miscellaneous Notes Plan of Care - Amanda Hernandez RN - 02/08/2014 3:44 PM CDT Problem: IP GENERAL POC-ADULT,OB,BEHAVIORAL FVCPM Goal: Individualization/Patient-Specific Goal (Adult,OB,Behavioral The patient and/or their dental sales representative will achieve their patient-specific goals [...] Card updated. Report called to Saima in [facility]. Left facility accompanied by s.o at 1600. Plan of Care - Amanda Hernandez RN - 02/08/2014 2:13 PM CDT Problem: IP GENERAL POC-ADULT,OB,BEHAVIORAL FVCPM Goal: Individualization/Patient-Specific Goal (Adult,OB,Behavioral The patient and/or their dental sales representative will achieve their patient-specific goals [...] MARGARET and incision to be done with vishal Epstein. Voiding in toilet. Eating well. To leave [...] Individualization/Patient-Specific Goal (Adult,OB,Behavioral The patient and/or their dental sales representative will achieve their patient-specific goals [...] Individualization/Patient-Specific Goal (Adult,OB,Behavioral The patient and/or their dental sales representative will achieve their patient-specific goals [...] precautions - no fish/seafood x 3 weeks. nIez Luevano MS, RD, LD Pager [phone] Pharmacy-Immunosuppression Monitoring - Em Vasquez [facility] - 02/07/2014 9:06 AM CDT [...] will continue to follow. Em Vasquez, Pharm.D., [facility] Pager [phone] Plan of Care - Annmarie Colby RN - 02/07/2014 5:11 AM CDT Problem: IP GENERAL POC-ADULT,OB,BEHAVIORAL FVCPM Goal: Individualization/Patient-Specific Goal (Adult,OB,Behavioral The patient and/or their dental sales representative will achieve their patient-specific goals [...] well between cares. Provider Notification - Annmarie Cobly RN - 02/07/2014 4:02 AM CDT On-call, [...] Individualization/Patient-Specific Goal (Adult,OB,Behavioral The patient and/or their dental sales representative will achieve their patient-specific goals [...] increased fluid intake, urine color is becoming bindery cutter operator( tea color/bloody- >dark sy/tea color). Incisional pain relieved with oxycodone. At the end of this shift pt c/o abdominal fullness/tightness, incisional hematoma has increased in size, MD aware. Fair appetite, insulin per sliding scale. Passing flatus, hypoactive BS, no BMs this shift. MARGARET in place, total output 58/ 8hrs. Plan for transfer to . Provider Notification - Ganesh Covarurbias RN - 02/06/2014 2:57 PM CDT Mr. Gutrhie complained of abdominal fullness/tightness, on assessment hematoma at incision site has increased in size; Bladder scan for PVR [address] Hernandes notified. Plan of Care - Yesenia Rodriguez, PT - 02/06/2014 12:42 PM CDT Problem: General Rehab Plan of Care Goal: Physical Therapy Goals The patient and/or their dental sales representative will achieve their patient-specific goals [...] Physical Therapy Goals The patient and/or their dental sales representative will achieve their patient-specific goals [...] Individualization/Patient-Specific Goal (Adult,OB,Behavioral The patient and/or their dental sales representative will achieve their patient-specific goals [...] Individualization/Patient-Specific Goal (Adult,OB,Behavioral The patient and/or their dental sales representative will achieve their patient-specific goals [...] Physical Therapy Goals The patient and/or their dental sales representative will achieve their patient-specific goals [...] at this time. Pharmacy - Cayetano Olivera, [facility] - 02/05/2014 12:26 PM CDT Visited 02/05/2014 in hospital room prior to discharge to review medications, review discharge process and review specialty pharmacy program. Med Review: Reviewed patient's medications and medical conditions. Patient would like to use [facility] to manage all medications. Medcard: [...] Specialty Pharmacy review: Discussed the benefits of [facility] and Diego has enrolled. Also gave him supplies (blood pressure cuff, thermometer, and pill box) Other concerns: No other concerns at this time. No further questions for this pharmacist. Inez Cox, Student Pharmacist Head Cleaning [facility] [address] [place] [id number] Cayetano Olivera, Pharmacist [facility] [phone] Pharmacy-Anticoagulation Service - Teresa Wright [facility] - 02/05/2014 11:29 AM CDT [...] Individualization/Patient-Specific Goal (Adult,OB,Behavioral The patient and/or their dental sales representative will achieve their patient-specific goals [...] melonie hard time making full sentences. When residential mortgage underwriter came on shift at 8pm patient [...] any changes. Plan of Care - Janet Pratt, RN - 02/04/2014 6:35 PM CDT Problem: IP GENERAL POC-ADULT,OB,BEHAVIORAL FVCPM Goal: Individualization/Patient-Specific Goal (Adult,OB,Behavioral The patient and/or their dental sales representative will achieve their patient-specific goals [...] Physical Therapy Goals The patient and/or their dental sales representative will achieve their patient-specific goals [...] lifting Plan of Care - Josseline Almendarez, RN - 02/04/2014 3:09 PM CDT Problem: IP GENERAL POC-ADULT,OB,BEHAVIORAL FVCPM Goal: Discharge Planning (Adult, OB, Behavioral, Peds) Latrell came with S.O Tete to transplant med and dc classes. They were attentive and they both asked a couple of questions. Called Specialty pharmacy. Plan of Care - Janet Pratt, BOGDAN - 02/04/2014 12:00 PM CDT Received pt from around 1200, pt came from transplant course via wheelchair, also accompanied by friend. Pt transferred to chair, VSS, monitoring engineer on, oriented to room. Pharmacy-Admission Medication History - Teresa Wright [facility] - 02/04/2014 11:54 AM CDT Admission medication history interview status for the 02/02/2014 admission is complete. See [facility] admission navigator for allergy information, prior to admission medications and immunization status. Medication history interview sources (including written lists, pill bottles, clinic record):Patient Medication history source reliability:Good Primary pharmacy:[facility] phone number: [phone] Changes made to REAL ESTATE OFFICE MANAGER medication list (reason) Added: Vitamin D [...] at Unknown time Yes Reported, Patient B gbqprdu-N-pwdwv acid (NEPHROCAPS) 1 MG capsule Take 1 [...] Individualization/Patient-Specific Goal (Adult,OB,Behavioral The patient and/or their dental sales representative will achieve their patient-specific goals [...] 45 minutes and remains in A-fib via radiation monitor. Repeat EKG around 1000 showed continued [...] Physical Therapy Goals The patient and/or their dental sales representative will achieve their patient-specific goals related to the plan of care. The patient-specific goals include: PT 7A: HOLD for AM per RN - pt with a-fib this morning. Plan of Care - Alisson Diane RN - 02/04/2014 6:45 AM CDT Problem: IP GENERAL POC-ADULT,OB,BEHAVIORAL FVCPM Goal: Individualization/Patient-Specific Goal (Adult,OB,Behavioral The patient and/or their dental sales representative will achieve their patient-specific goals [...] Individualization/Patient-Specific Goal (Adult,OB,Behavioral The patient and/or their dental sales representative will achieve their patient-specific goals [...] to yellow. Pharmacy-Transplant Note - Davina Schuster [facility] - 02/03/2014 4:28 PM CDT [...] Individualization/Patient-Specific Goal (Adult,OB,Behavioral The patient and/or their dental sales representative will achieve their patient-specific goals related to the plan of care. The patient-specific goals include: 1. Pt will remain hemodynamically stable 2. Pt will have adequate urine output 3. Pt will be free of falls. RD Patient will verbalize understanding of 3 important aspects of post-transplant diet guidelines. PO intake >50% meals TID once diet adv. Report taken from [facility] on 6B; patient transferred to from 6B via wheelchair around 1500. Patientsettled into room, oriented to floor/room and call light. VS taken. Orders released. Continue ordersas written and notify MD with any concerns. Plan of Care - Sofie Christianson RN - 02/03/2014 2:59 PM CDT Problem: IP GENERAL POC-ADULT,OB,BEHAVIORAL FVCPM Goal: Plan of Care Review (Adult,OB,Behavioral) The patient and/or their dental sales representative will communicate an understanding of [...] algorithm 2, 1 unit now. Pt still svavtzebs8N NC to maintain sats above 90 % when asleep and drops on occasion while awake also. Dr Owens aware. Pt resistant to taking pain medications. Finally agreed to one dose and said it didn't help as much as he had hoped, dose increased per Dr Owens. Pt transferred to via wheelchair with all belongings accompanied by transport staff and . Provider Notification - oSfie Christianson RN - 02/03/2014 8:[address] Owens notified of low urine output and lower blood pressures. Order rcvd to hold metoprolol, but togive IV lasix 80mg as ordered. Plan of Care - Tasia Andrade RN - 02/03/2014 7:32 AM CDT Problem: IP GENERAL POC-ADULT,OB,BEHAVIORAL FVCPM Goal: Individualization/Patient-Specific Goal (Adult,OB,Behavioral The patient and/or their dental sales representative will achieve their patient-specific goals [...] Intermittent sharp R lower abd pain. Dilaudid ACCESS REPRESENTATIVE encouraged, increased to 0.2//.2. R lower abd incision with small amt [...] 0200 made 20cc/hr, at 0300 made 30cc/hr. [place]/red tinged urine. MIVF @ 125/hr. VSS. HR 70s, BPs 100s-120s/60s. No new orders at this time. Will continue to monitor. Plan of Care - Tasia Andrade RN - 02/03/2014 12:00 AM CDT Pt arrived to 6B from PACU, s/p DDKT. A&O x3-4. VSS. [place]/red urine output. Small amt drainage on abd [...] [facility] offer for a Donor NUCLEAR WORKER TECHNICIAN (expanded criteria donor) kidney transplant. After discussing [...] The UNOS number of the donor is [id number]. The crossmatch was done prospectively; and the [...] reconstruction. FACULTY SURGEON: Migel Merchant M.D., Ph.D. FELLOW/PRINT SHOP STENOGRAPHER SURGEON: Caitlin Owens MD fellow ANESTHESIA: None VERIFICATION: Prior to incision, I verified the donor ABO and recipient ABO. After the donor organ arrived to the operating room and prior to anastamosis, I visually verified that the donor identification, blood type, and other vital data were compatible with the recipient. FINDINGS: Donor type: NUCLEAR WORKER TECHNICIAN (expanded criteria donor) Organ: kidney Graft Injury: [...] Individualization/Patient-Specific Goal (Adult,OB,Behavioral The patient and/or their dental sales representative will achieve their patient-specific goals [...] Individualization/Patient-Specific Goal (Adult,OB,Behavioral The patient and/or their dental sales representative will achieve their patient-specific goals [...] 02/08/2014 PM CDT 12:10 PM CDT Migel Zuniga AJ POCT Performing Organization Address City/State/ZIP Code Phon [...] Not Provided [facility] Last Dose [facility] LABS Tacrolimus 10.0 5.0 - [facility] Level [...] - BLOOD ORDERABLES Performing Organization Address City/[facility]/ZIP Code Phon e Number [facility] [address] LABS (ABNORMAL) INR (02/08/2014 6:42 AM CDT) P athologist Signature INR 1.28 (H) 0.86 - 1.14 [facility] LABS Specimen Anatomical Collection Method Collection Time Receive d Time (Source) Location / / Volume Laterality Blood specimen 02/08/2014 6:42 AM 014 6:43 (specimen) CDT AM CDT Omaira Chavez PA-C LAB - BLOOD ORDERABLES Performing Organization Address City/State/ZIP Code Phon e Number [facility] [address] LABS (ABNORMAL) Basic metabolic panel (02/08/2014 6:42 AM CDT) Patholo gist Method Time Signature Sodium 144 133 - 144 [facility] mmol/L [facility] LABS Potassium 3.9 3.4 - 5.3 [facility] mmol/L [facility] LABS Chloride 110 (H) 94 - 109 [facility] mmol/L [facility] LABS Carbon Dioxide 25 20 - 32 [facility] mmol/L [facility] LABS Anion Gap 8 6 - 17 [facility] mmol/L [facility] LABS Glucose 144 (H) 60 - 99 [facility] mg/dL [facility] LABS Urea Nitrogen 66 (H) 7 - 30 [facility] mg/dL [facility] LABS Creatinine 2.38 (H) 0.66 - [facility] 1.25 mg/dL [facility] LABS GFR Estimate 28 (L) >60 [facility] mL/min/1.7 [place] m2 CAMPUS LABS GFR Estimate If 34 (L) >60 [facility] Black mL/min/1.7 [place] [address] CAMPUS LABS Calcium 9.4 8.5 - 10.4 [facility] mg/dL [facility] LABS Specimen Anatomical Collection Method Collection Time Receive d Time (Source) Location / / Volume Laterality Blood specimen 02/08/2014 6:42 AM 014 6:43 (specimen) CDT AM CDT Omaira Chavez PA-C LAB - BLOOD ORDERABLES Performing Organization Address City/[facility]/ZIP Code Phon e Number [address] LABS Phosphorus (02/08/2014 6:42 AM CDT) P athologist Signature Phosphorus 2.5 2.5 - 4.5 [facility] mg/dL [place] LABS Specimen Anatomical Collection Method Collection Time Receive d Time (Source) Location / / Volume Laterality Blood specimen 02/08/2014 6:42 AM 014 6:43 (specimen) CDT AM CDT Omaira Chavez PA-C LAB - BLOOD ORDERABLES Performing Organization Address City/[facility]/ZIP Code Phon e Number [address] LABS Magnesium (02/08/2014 6:42 AM CDT) athologist Signature Magnesium 2.2 1.6 - 2.3 [facility] mg/dL [place] LABS Specimen Anatomical Collection Method Collection Time Receive d Time (Source) Location / / Volume Laterality Blood specimen 02/08/2014 6:42 AM 014 6:43 (specimen) CDT AM CDT Omaira Chavez PA-C LAB - BLOOD ORDERABLES Performing Organization Address City/[facility]/ZIP Code Phon e Number [address] LABS (ABNORMAL) CBC with platelets differential (02/08/2014 6:42 AM CDT) Patholo gist Method Time Signature WBC 4.8 4.0 - [facility] 11.0 [place] 10e9/L [place] LABS RBC Count 2.56 (L) 4.4 - 5.9 [facility] 10e12/L [facility] LABS Hemoglobin 7.8 (L) 13.3 - [facility] 17.7 g/dL [facility] LABS Hematocrit 23.5 (L) 40.0 - [facility] 53.0 % [facility] LABS MCV 92 78 - 100 [facility] fl [facility] LABS MCH 30.5 26.5 - [facility] 33.0 pg [facility] [place] LAB[facility] MCHC 33.2 31.5 - [facility] 36.5 g/dL [facility] LABS RDW 14.5 10.0 - [facility] 15.0 % [facility] LABS Platelet Count 70 (L) 150 - 450 [facility] 10e9/L [facility] LABS Diff Method Automated [facility] Method [facility] LABS % Neutrophils 86.3 % [facility] LABS % Lymphocytes 3.1 % [facility] LABS % Monocytes 9.4 % [facility] LABS % Eosinophils 1.0 % [facility] LABS % Basophils 0.0 % [facility] % Immature 0.2 % [facility] Granulocytes [facility] LABS Absolute 4.1 1.6 - 8.3 [facility] Neutrophil 10e9/L [facility] LABS Absolute 0.2 (L) 0.8 - 5.3 [facility] Lymphocytes 10e9/L [facility] LABS Absolute 0.5 0.0 - 1.3 [facility] Monocytes 10e9/L [facility] LABS Absolute 0.1 0.0 - 0.7 [facility] Eosinophils 10e9/L [facility] LABS Absolute 0.0 0.0 - 0.2 [facility] Basophils 10e9/L [facility] LABS Abs Immature 0.0 0 - 0.4 [facility] Granulocytes 10e9/L [facility] LABS Specimen Anatomical Collection Method Collection Time Receive d Time (Source) Location / / Volume Laterality Blood specimen 02/08/2014 6:42 AM 014 6:43 (specimen) CDT AM CDT Omaira Chavez PA-C LAB - BLOOD ORDERABLES Performing Organization Address City/State/ZIP Code Phon e Number [facility] [address] [place], [place] [phone] [place] [address] LABS (ABNORMAL) Glucose by meter (02/07/2014 10:18 PM CDT) P athologist Signature Glucose 233 (H) 60 - 99 POINT OF CARE mg/dL TEST, GLUCOSE Specimen Anatomical Collection Method Collection Time Receive d Time (Source) Location / / Volume Laterality 02/07/2014 10:18 02/07/2014 PM CDT 10:20 PM CDT Migel Merchant MD LAB - BEAKER POCT Performing Organization Address [facility] Phon e Number FV POINT OF [...] LAB - BEAKER POCT Performing Organization Address [facility] Phon e Number FV POINT OF [...] LAB - BEAJ POCT Performing Organization Address [facility] Phon e Number FV POINT OF [...] LAB - BEAJ POCT Performing Organization Address [facility] Phon e Number FV POINT OF [...] AM 4 7:50 CDT AM CDT Migel Merchant MD [facility] POCT Performing Organization Address City/State/ZIP Code Phon [...] AM 4 4:50 CDT AM CDT Migel Merchant MD LAB - BEAKER POCT Performing Organization Address City/State/ZIP Code Phon e Number FV POINT OF CARE TEST, GLUCOSE POINT OF CARE TEST, GLUCOSE (ABNORMAL) INR (02/07/2014 4:23 AM CDT) athologist Signature INR 1.25 (H) 0.86 - 1.14 [facility] LABS Specimen Anatomical Collection Method Collection Time Receive d Time (Source) Location / / Volume Laterality Blood specimen 02/07/2014 4:23 AM 014 4:24 (specimen) CDT AM CDT Omaira Chavez PA-C LAB - BLOOD ORDERABLES Performing Organization Address City/State/ZIP Code Phon e Number [phone] [place] [address] LABS (ABNORMAL) Basic metabolic panel (02/07/2014 4:23 AM CDT) [facility] gist Method Time Signature Sodium 143 133 - 144 [facility] mmol/L [facility] LABS Potassium 4.1 3.4 - 5.3 [facility] mmol/L [facility] LABS Chloride 109 94 - 109 [facility] mmol/L [facility] LABS Carbon Dioxide 24 20 - 32 [facility] mmol/L [facility] LABS Anion Gap 10 6 - 17 [facility] mmol/L [facility] LABS Glucose 185 (H) 60 - 99 [facility] mg/dL [facility] LABS Urea Nitrogen 77 (H) 7 - 30 [facility] mg/dL [facility] LABS Creatinine 3.02 (H) 0.66 - [facility] 1.25 mg/dL [facility] LABS GFR Estimate 21 (L) >60 [facility] mL/min/1.7 [place] m2 CAMPUS LABS GFR Estimate If 26 (L) >60 [facility] Black mL/min/1.7 [place] [address] CAMPUS LABS Calcium 9.3 8.5 - 10.4 [facility] mg/dL [facility] LABS Specimen Anatomical Collection Method Collection Time Receive d Time (Source) Location / / Volume Laterality Blood specimen 02/07/2014 4:23 AM 014 4:24 (specimen) CDT AM CDT Omaira Chavez PA-C LAB - BLOOD ORDERABLES Performing Organization Address City/[facility]/ZIP Code Phon e Number [address] LABS Phosphorus (02/07/2014 4:23 AM CDT) P athologist Signature Phosphorus 3.5 2.5 - 4.5 [facility] mg/dL [place] LABS Specimen Anatomical Collection Method Collection Time Receive d Time (Source) Location / / Volume Laterality Blood specimen 02/07/2014 4:23 AM 014 4:24 (specimen) CDT AM CDT Omaira Chavez PA-C LAB - BLOOD ORDERABLES Performing Organization Address City/State/ZIP Code Phon e Number [address] LABS Magnesium (02/07/2014 4:23 AM CDT) P athologist Signature Magnesium 2.1 1.6 - 2.3 [facility] mg/dL [place] LABS Specimen Anatomical Collection Method Collection Time Receive d Time (Source) Location / / Volume Laterality Blood specimen 02/07/2014 4:23 AM 014 4:24 (specimen) CDT AM CDT Omaira Chavez PA-C LAB - BLOOD ORDERABLES Performing Organization Address City/State/ZIP Code Phon e Number [address] LABS (ABNORMAL) CBC with platelets differential (02/07/2014 4:23 AM CDT) Patholo gist Method Time Signature WBC 2.7 (L) 4.0 - [facility] 11.0 [place] 10e9/L [place] LABS RBC Count 2.80 (L) 4.4 - 5.9 [facility] 10e12/L [facility] LABS Hemoglobin 8.5 (L) 13.3 - [facility] 17.7 g/dL [facility] LABS Hematocrit 25.8 (L) 40.0 - [facility] 53.0 % [facility] LABS MCV 92 78 - 100 [facility] fl [facility] LABS MCH 30.4 26.5 - [facility] 33.0 pg [facility] LABS MCHC 32.9 31.5 - [facility] 36.5 g/dL [facility] LABS RDW 14.5 10.0 - [facility] 15.0 % [facility] LABS Platelet Count 77 (L) 150 - 450 [facility] 10e9/L [facility] LABS Diff Method Automated [facility] Method [facility] LABS % Neutrophils 87.5 % [facility] % Lymphocytes 3.8 % [facility] % Monocytes 8.7 % [facility] % Eosinophils 0.0 % [facility] % Basophils 0.0 % [facility] % Immature 0.0 % [facility] Granulocytes [facility] LABS Absolute 2.3 1.6 - 8.3 [facility] Neutrophil 10e9/L [facility] LABS Absolute 0.1 (L) 0.8 - 5.3 [facility] Lymphocytes 10e9/L [facility] LABS Absolute 0.2 0.0 - 1.3 [facility] Monocytes 10e9/L [facility] LABS Absolute 0.0 0.0 - 0.7 [facility] Eosinophils 10e9/L [facility] LABS Absolute 0.0 0.0 - 0.2 [facility] Basophils 10e9/L [facility] LABS Abs Immature 0.0 0 - 0.4 [facility] Granulocytes 10e9/L [facility] LABS Specimen Anatomical Collection Method Collection Time Receive d Time (Source) Location / / Volume Laterality Blood specimen 02/07/2014 4:23 AM 014 4:24 (specimen) CDT AM CDT Omaira Chavez PA-C LAB - BLOOD ORDERABLES Performing Organization Address City/State/ZIP Code Phon e Number [phone] [place] [address] LABS (ABNORMAL) Hemoglobin A1c (02/07/2014 4:23 AM CDT) Analysis Performed At Patho logist Time Signature Hemoglobin A1C 6.1 (H) 4.3 - 6.0 [facility] % [facility] LABS Specimen Anatomical Collection Method Collection Time Receive d Time (Source) Location / / Volume Laterality Blood specimen 02/07/2014 4:23 AM 014 4:24 (specimen) CDT AM CDT Omaira Chavez PA-C LAB - BLOOD ORDERABLES Performing Organization Address City/State/ZIP Code Phon e Number [address] [address] [facility] LABS (ABNORMAL) Glucose by meter (02/06/2014 10:06 PM CDT) P athologist Signature Glucose 247 (H) 60 - 99 POINT OF CARE mg/dL TEST, GLUCOSE Specimen Anatomical Collection Method Collection Time Receive d Time (Source) Location / / Volume Laterality 02/06/2014 10:06 02/06/2014 PM CDT 10:10 PM CDT Migel LARES - BEAJ POCT [...] Signature Hemoglobin 8.8 (L) 13.3 - 17.7 [facility] g/dL [place] LABS Specimen Anatomical Collection Method Collection Time Receive d Time (Source) Location / / Volume Laterality Blood specimen 02/06/2014 4:59 PM 014 5:12 (specimen) CDT PM CDT Omaira Chavez PA-C LAB - BLOOD ORDERABLES Performing Organization Address City/[facility]/ZIP Code Phon e Number [facility] [address] LABS (ABNORMAL) Glucose by meter (02/06/2014 12:01 PM CDT) athologist Signature Glucose 181 (H) 60 - 99 POINT OF CARE mg/dL TEST, GLUCOSE Specimen Anatomical Collection Method Collection Time Receive d Time (Source) Location / / Volume Laterality 02/06/2014 12:01 02/06/2014 PM CDT 12:05 PM CDT Migel Merchant MD LAB - BEAKER POCT Performing Organization Address City/[facility]/ZIP Code Phon e Number [facility]V POINT OF CARE TEST, GLUCOSE POINT OF CARE TEST, GLUCOSE (ABNORMAL) Partial thromboplastin time (02/06/2014 5:57 AM CDT) athologist Signature PTT 154 (HH) 22 - 37 sec [facility] LABS Comment: Critical Value called to and read back Wihtney HODGSON 6B RN AT 0642. PW Specimen Anatomical Collection Method Collection Time Receive d Time (Source) Location / / Volume Laterality 02/06/2014 5:57 AM 4 6:03 CDT AM CDT Adeline Diaz MD LAB - BLOOD ORDERABLES Performing Organization Address City/[facility]/ZIP Code Phon e Number [facility] [address] [place], [place] [phone] [place] [address] LABS Heparin Xa (10a) Level (02/06/2014 5:57 AM CDT) athologist Signature Heparin 10A 0.92 IU/mL [facility] LABS Comment: Therapeutic Range: ?? UFH: ?? [...] - BLOOD ORDERABLES Performing Organization Address City/[facility] Code Phon e Number [facility] [address] LABS (ABNORMAL) INR (02/06/2014 5:57 AM CDT) P athologist Signature INR 1.32 (H) 0.86 - 1.14 [facility] LABS Specimen Anatomical Collection Method Collection Time Receive d Time (Source) Location / / Volume Laterality Blood specimen 02/06/2014 5:57 AM 014 6:03 (specimen) CDT AM CDT Omaira Chavez PA-C LAB - BLOOD ORDERABLES Performing Organization Address City/State/ZIP Code Phon e Number [facility] [address] LABS (ABNORMAL) Basic metabolic panel (02/06/2014 5:57 AM CDT) Patholo gist Method Time Signature Sodium 142 133 - 144 [facility] mmol/L [facility] LABS Potassium 4.7 3.4 - 5.3 [facility] mmol/L [facility] LABS Chloride 106 94 - 109 [facility] mmol/L [facility] LABS Carbon Dioxide 28 20 - 32 [facility] mmol/L [facility] LABS Anion Gap 8 6 - 17 [facility] mmol/L [facility] LABS Glucose 196 (H) 60 - 99 [facility] mg/dL [facility] LABS Urea Nitrogen 71 (H) 7 - 30 [facility] mg/dL [facility] LABS Creatinine 3.96 (H) 0.66 - [facility] 1.25 mg/dL [facility] [place] LAB[facility] GFR Estimate 15 (L) >60 [facility] mL/min/1.7 [place] m2 CAMPUS LABS GFR Estimate If 19 (L) >60 [facility] Black mL/min/1.7 [place] m2 CAMPUS LABS Calcium 9.4 8.5 - [...] Phon e Number [facility] [address] LABS Phosphorus (02/06/2014 5:57 AM CDT) P athologist Signature Phosphorus 4.5 2.5 - 4.5 [facility] mg/dL [place] LABS Specimen Anatomical Collection Method Collection Time Receive d Time (Source) Location / / Volume Laterality Blood specimen 02/06/2014 5:57 AM 014 6:03 (specimen) CDT AM CDT Omaira Chavez PA-C LAB - BLOOD ORDERABLES Performing Organization Address City/State/ZIP Code Phon e Number [facility] [address] LABS Magnesium (02/06/2014 5:57 AM CDT) P athologist Signature Magnesium 1.9 1.6 - 2.3 [facility] mg/dL [place] LABS Specimen Anatomical Collection Method Collection Time Receive d Time (Source) Location / / Volume Laterality Blood specimen 02/06/2014 5:57 AM 014 6:03 (specimen) CDT AM CDT Omaira Chavez PA-C LAB - BLOOD ORDERABLES Performing Organization Address City/State/ZIP Code Phon e Number [facility] [address] [place], [place] [phone] [place] [address] LABS (ABNORMAL) CBC with platelets differential (02/06/2014 5:57 AM CDT) Patholo gist Method Time Signature WBC 5.1 4.0 - [facility] 11.0 [facility] 10e9/L [place] LABS RBC Count 3.13 (L) 4.4 - 5.9 [facility] 10e12/L [facility] LABS Hemoglobin 9.6 (L) 13.3 - [facility] 17.7 g/dL [facility] LABS Hematocrit 29.0 (L) 40.0 - [facility] 53.0 % [facility] LABS MCV 93 78 - 100 [facility] fl [facility] LABS MCH 30.7 26.5 - [facility] 33.0 pg [facility] LABS MCHC 33.1 31.5 - [facility] 36.5 g/dL [facility] LABS RDW 14.5 10.0 - [facility] 15.0 % [facility] LABS Platelet Count 85 (L) 150 - 450 [facility] 10e9/L [facility] LABS Diff Method Automated [facility] Method [facility] LABS % Neutrophils 86.0 % [facility] LABS % Lymphocytes 5.1 % [facility] LABS % Monocytes 8.7 % [facility] LABS % Eosinophils 0.0 % [facility] % Basophils 0.0 % [facility] LABS % Immature 0.2 % [facility] Granulocytes [facility] LABS Absolute 4.4 1.6 - 8.3 [facility] Neutrophil 10e9/L [facility] LABS Absolute 0.3 (L) 0.8 - 5.3 [facility] Lymphocytes 10e9/L [facility] LABS Absolute 0.4 0.0 - 1.3 [facility] Monocytes 10e9/L [facility] LABS Absolute 0.0 0.0 - 0.7 [facility] Eosinophils 10e9/L [facility] LABS Absolute 0.0 0.0 - 0.2 [facility] Basophils 10e9/L [facility] LABS Abs Immature 0.0 0 - 0.4 [facility] Granulocytes 10e9/L [facility] LABS Specimen Anatomical Collection Method Collection Time Receive d Time (Source) Location / / Volume Laterality Blood specimen 02/06/2014 5:57 AM 014 6:03 (specimen) CDT AM CDT Omaira Chavez PA-C LAB - BLOOD ORDERABLES Performing Organization Address City/State/ZIP Code Phon e Number [facility] [address] [place] [address] [facility] LABS (ABNORMAL) Lipid panel reflex to direct LDL (02/06/2014 5:57 AM CDT) P athologist Signature Cholesterol 126 <200 mg/dL [facility] LABS Comment: LDL Cholesterol is the primary guide to therapy. The NCEP recommends further evaluation of: patients with cholesterol greater than 200 mg/dL if additional risk facto rs are present, cholesterol greater than 240 mg/dL, triglycerides greater than 1 50 mg/dL, or HDL less than 40 mg/dL. Triglycerides 100 0 - 150 mg/dL [facility] [place] LABS HDL Cholesterol 35 (L) >40 mg/dL [facility] LABS LDL Cholesterol Calculated 71 0 - 129 mg/dL [facility] LABS Comment: LDL Cholesterol is the primary guide to therapy: LDL-cholesterol goal in high risk patients is <100 mg/dL and in very high risk patients is <70 mg/dL. VLDL-Cholesterol 20 0 - 30 mg/dL [facility] Cholesterol/HDL Ratio 3.6 0.0 - 5.0 [facility] Specimen Anatomical Collection Method Collection Time Receive d Time (Source) Location / / Volume Laterality Blood specimen 02/06/2014 5:57 AM 014 6:03 (specimen) CDT AM CDT Omaira Chavez PA-C LAB - BLOOD ORDERABLES Performing Organization Address City/State/ZIP Code Phon e Number [facility] [address] LABS Tacrolimus level (02/06/2014 5:57 AM CDT) Patholo gist Method Time Signature Tacrolimus S Negative [facility] Last Dose [facility] LABS Tacrolimus 12.7 5.0 - [facility] Level [...] Phon e Number [facility] [address] [place] [address] [facility] LABS (ABNORMAL) Glucose by meter (02/06/2014 3:21 [...] athologist Signature Hemoglobin 10.2 (L) 13.3 - [facility] 17.7 g/dL [place] LABS Specimen Anatomical Collection Method Collection Time Receive d Time (Source) Location / / Volume Laterality Blood specimen 02/06/2014 1:02 AM 014 1:11 (specimen) CDT AM CDT Deysi Alicea MD LAB - BLOOD ORDERABLES Performing Organization Address City/State/ZIP Code Phon e Number [facility] [address] [place], [place] [phone] [place] [address] LABS (ABNORMAL) Glucose by meter (02/05/2014 10:23 PM CDT) P athologist Signature Glucose 254 (H) 60 - 99 POINT OF CARE mg/dL TEST, GLUCOSE Specimen Anatomical Collection Method Collection Time Receive d Time (Source) Location / / Volume Laterality 02/05/2014 10:23 02/05/2014 PM CDT 10:25 PM CDT Migel Merchant MD LAB - BEAKER POCT Performing Organization Address City/[facility] Code Phon e Number [facility]V POINT OF CARE TEST, GLUCOSE POINT OF CARE TEST, GLUCOSE Heparin 10a Level (02/05/2014 7:32 PM CDT) P athologist Signature Heparin 10A 0.64 IU/mL [facility] LABS Comment: Therapeutic Range: ?? UFH: ?? [...] Organization Address City/State/ZIP Code Phon e Number [address] [address] [facility] LABS (ABNORMAL) Glucose by meter [...] INR 1.24 (H) 0.86 - 1.14 [facility] LABS Specimen Anatomical Collection Method Collection Time Receive d Time (Source) Location / / Volume Laterality Blood specimen 02/05/2014 12:04 4 (specimen) PM CDT 12:10 PM CDT Teresa Wright [facility] LAB - BLOOD ORDERABLES Performing Organization Address City/[facility]/ZIP Code Phon e Number [address] LABS (ABNORMAL) CBC with platelets (02/05/2014 12:04 PM CDT) Patholo gist Method Time Signature WBC 7.4 4.0 - 11.0 [facility] 10e9/L [facility] LABS RBC Count 3.31 (L) 4.4 - 5.9 [facility] 10e12/L [facility] LABS Hemoglobin 10.3 (L) 13.3 - [facility] 17.7 g/dL [facility] LABS Hematocrit 31.0 (L) 40.0 - [facility] 53.0 % [facility] LABS MCV 94 78 - 100 [facility] fl [facility] LABS MCH 31.1 26.5 - [facility] 33.0 pg [facility] LABS MCHC 33.2 31.5 - [facility] 36.5 g/dL [facility] LABS RDW 14.7 10.0 - [facility] 15.0 % [facility] LABS Platelet Count 91 (L) 150 - 450 [facility] 10e9/L [facility] LABS Specimen Anatomical Collection Method Collection Time Receive d Time (Source) Location / / Volume Laterality Blood specimen 02/05/2014 12:04 4 (specimen) PM CDT 12:10 PM CDT Omaira Chavez PA-C LAB - BLOOD ORDERABLES Performing Organization Address City/[facility]/ZIP Code Phon e Number [facility] [place] [address] [address] [facility] LABS (ABNORMAL) Glucose by meter (02/05/2014 11:25 AM CDT) P athologist Signature Glucose 190 (H) 60 - 99 POINT OF CARE mg/dL TEST, GLUCOSE Specimen Anatomical Collection Method Collection Time Receive d Time (Source) Location / / Volume Laterality 02/05/2014 11:25 02/05/2014 AM CDT 11:30 AM CDT Migel Merchant MD LAB - BEAKER POCT Performing Organization Address City/[facility]/ZIP Code Phon e Number FV POINT [...] LAB - BEAJ POCT Performing Organization Address City/[facility]/ZIP Code Phon e Number FV POINT [...] LAB - BEAJ POCT Performing Organization Address City/[facility]/ZIP Code Phon e Number FV POINT [...] Basic metabolic panel (02/05/2014 7:02 AM CDT) Patholo gist Method Time Signature Sodium 143 133 - 144 [facility] mmol/L [facility] LABS Potassium 4.3 3.4 - 5.3 [facility] mmol/L [facility] LABS Chloride 107 94 - 109 [facility] mmol/L [facility] Carbon Dioxide 25 20 - 32 [facility] mmol/L [facility] Anion Gap 10 6 - 17 [facility] mmol/L [facility] Glucose 123 (H) 60 - 99 [facility] mg/dL [facility]S Urea Nitrogen 66 (H) 7 - 30 [facility] mg/dL [facility]S Creatinine 4.77 (H) 0.66 - [facility] 1.25 mg/dL [facility] LABS GFR Estimate 12 (L) >60 [facility] mL/min/1.7 [place] m2 CAMPUS LABS GFR Estimate If 15 (L) >60 [facility] Black mL/min/1.7 [place] m2 CAMPUS LABS Calcium 9.4 8.5 - 10.4 [facility] mg/dL [facility] LABS Specimen Anatomical Collection Method Collection Time Receive d Time (Source) Location / / Volume Laterality Blood specimen 02/05/2014 7:02 AM 014 7:05 (specimen) CDT AM CDT Omaira Chavez PA-C LAB - BLOOD ORDERABLES Performing Organization Address City/[facility]/ZIP Code Phon e Number [address] LABS (ABNORMAL) Phosphorus (02/05/2014 7:02 AM CDT) P athologist Signature Phosphorus 5.7 (H) 2.5 - 4.5 [facility] mg/dL CAMPUS LABS Specimen Anatomical Collection Method Collection Time Receive d Time (Source) Location / / Volume Laterality Blood specimen 02/05/2014 7:02 AM 014 7:05 (specimen) CDT AM CDT Omaira Chavez PA-C LAB - BLOOD ORDERABLES Performing Organization Address City/[facility]/ZIP Code Phon e Number [address] [facility]S Magnesium (02/05/2014 7:02 AM CDT) P athologist Signature Magnesium 2.0 1.6 - 2.3 [facility] mg/dL [place] LABS Specimen Anatomical Collection Method Collection Time Receive d Time (Source) Location / / Volume Laterality Blood specimen 02/05/2014 7:02 AM 014 7:05 (specimen) CDT AM CDT Omaira Chavez PA-C LAB - BLOOD ORDERABLES Performing Organization Address City/State/ZIP Code Phon e Number [facility] [address] [place] [address] [facility] LABS (ABNORMAL) CBC with platelets differential (02/05/2014 7:02 AM CDT) Patholo gist Method Time Signature WBC 8.9 4.0 - [facility] 11.0 [facility] 10e9/L [place] LABS RBC Count 3.20 (L) 4.4 - 5.9 [facility] 10e12/L [facility]S Hemoglobin 9.7 (L) 13.3 - [facility] 17.7 g/dL [facility] LABS Hematocrit 30.0 (L) 40.0 - [facility] 53.0 % [facility]S MCV 94 78 - 100 [facility] fl [facility]S MCH 30.3 26.5 - [facility] 33.0 pg [facility] LABS MCHC 32.3 31.5 - [facility] 36.5 g/dL [facility] LABS RDW 14.6 10.0 - [facility] 15.0 % [facility] LABS Platelet Count 96 (L) 150 - 450 [facility] 10e9/L [facility] LABS Diff Method Automated [facility] Method [facility] LABS % Neutrophils 90.2 % [facility] LABS % Lymphocytes 4.4 % [facility] LABS % Monocytes 5.2 % [facility] LABS % Eosinophils 0.0 % [facility] LABS % Basophils 0.0 % [facility] LABS % Immature 0.2 % [facility] Granulocytes [facility] LABS Absolute 8.1 1.6 - 8.3 [facility] Neutrophil 10e9/L [facility] LABS Absolute 0.4 (L) 0.8 - 5.3 [facility] Lymphocytes 10e9/L [facility] LABS Absolute 0.5 0.0 - 1.3 [facility] Monocytes 10e9/L [facility] LABS Absolute 0.0 0.0 - 0.7 [facility] Eosinophils 10e9/L [facility] LABS Absolute 0.0 0.0 - 0.2 [facility] Basophils 10e9/L [facility] LABS Abs Immature 0.0 0 - 0.4 [facility] Granulocytes 10e9/L [facility] LABS Specimen Anatomical Collection Method Collection Time Receive d Time (Source) Location / / Volume Laterality Blood specimen 02/05/2014 7:02 AM 014 7:05 (specimen) CDT AM CDT Omaira Chavez PA-C LAB - BLOOD ORDERABLES Performing Organization Address City/State/ZIP Code Phon e Number [facility] [address] LABS (ABNORMAL) Parathormone intact (02/05/2014 7:02 AM CDT) Patholo gist Method Time Signature Parathyroid 362 (H) 12 - 72 [facility] Hormone Intact pg/mL [facility] LABS Specimen Anatomical Collection Method Collection Time Receive d Time (Source) Location / / Volume Laterality Blood specimen 02/05/2014 7:02 AM 014 7:05 (specimen) CDT AM CDT Sina Robison MD LAB - BLOOD ORDERABLES Performing Organization Address City/State/ZIP Code Phon e Number [address] LABS (ABNORMAL) Ferritin (02/05/2014 7:02 AM CDT) P athologist Signature Ferritin 932 (H) 20 - 300 [facility] ng/mL [place] LABS Specimen Anatomical Collection Method Collection Time Receive d Time (Source) Location / / Volume Laterality Blood specimen 02/05/2014 7:02 AM 014 7:05 (specimen) CDT AM CDT Sina Robison MD LAB - BLOOD ORDERABLES Performing Organization Address City/[facility]/ZIP Code Phon e Number [address] LABS (ABNORMAL) Iron and iron binding capacity (02/05/2014 7:02 AM CDT) Analysis Performed At Patho logist Time Signature Iron 119 35 - 180 [facility] ug/dL [facility] LABS Iron Binding 207 (L) 240 - 430 [facility] Cap ug/dL [facility] LABS Iron Saturation 58 (H) 15 - 46 % [facility] Index [facility] LABS Specimen Anatomical Collection Method Collection Time Receive d Time (Source) Location / / Volume Laterality Blood specimen 02/05/2014 7:02 AM 014 7:05 (specimen) CDT AM CDT Sina Robison MD LAB - BLOOD ORDERABLES Performing Organization Address City/State/ZIP Code Phon e Number [facility] [address] [place] [address] [facility] LABS (ABNORMAL) Glucose by meter (02/05/2014 6:59 AM CDT) P athologist Signature Glucose 123 (H) 60 - 99 POINT OF CARE mg/dL TEST, GLUCOSE Specimen Anatomical Collection Method Collection Time Receive d Time (Source) Location / / Volume Laterality 02/05/2014 6:59 AM 4 7:05 CDT AM CDT Migel LARES - ROBERT POCT Performing Organization Address City/[facility]/ZIP Code Phon e Number FV POINT [...] 6:05 CDT AM CDT Migel LARES - ROBERT [...] AM 4 5:10 CDT AM CDT Migel JONES POCT Performing Organization Address City/[facility]/ZIP Code Phon e Number FV POINT [...] LAB - BEAJ POCT Performing Organization Address City/[facility]/ZIP Code Phon e Number FV POINT [...] LAB - BEAJ POCT Performing Organization Address City/[facility]/ZIP Code Phon e Number FV POINT OF CARE TEST, GLUCOSE POINT OF CARE TEST, GLUCOSE (ABNORMAL) Glucose by meter (02/05/2014 1:06 AM CDT) P athologist Signature Glucose 122 (H) 60 - 99 POINT OF CARE mg/dL TEST, GLUCOSE Specimen Anatomical Collection Method Collection Time Receive d Time (Source) Location / / Volume Laterality 02/05/2014 1:06 AM 4 1:10 CDT AM CDT Migel JONES POCT Performing Organization Address [facility] Phon e Number FV POINT OF [...] LARES - ROBERT POCT Performing Organization Address [facility] Phon e Number FV POINT OF CARE TEST, GLUCOSE POINT OF CARE TEST, GLUCOSE EKG 12-lead, complete (02/04/2014 11:09 PM CDT) [facility] gist Method Time Signature Interpretation ECG Click View RADIOLOGY Image link RESULTS to view waveform and result Specimen (Source) Anatomical Collection Method Collection Time Re ceived Time Location / / Volume Laterality 02/04/2014 11:09 PM CDT Chemo Carr MD ECG ORDERABLES Performing Organization Address [facility] Phon e Number RADIOLOGY RESULTS (ABNORMAL) Glucose by meter (02/04/2014 10:56 PM CDT) P athologist Signature Glucose 161 (H) 60 - 99 POINT OF CARE mg/dL TEST, GLUCOSE Specimen Anatomical Collection Method Collection Time Receive d Time (Source) Location / / Volume Laterality 02/04/2014 10:56 02/04/2014 PM CDT 11:00 PM CDT Migel JONES POCT Performing Organization Address [facility] Phon e Number FV POINT OF CARE TEST, GLUCOSE POINT OF CARE TEST, GLUCOSE (ABNORMAL) Glucose by meter (02/04/2014 9:58 PM CDT) P athologist Signature Glucose 177 (H) 60 - 99 POINT OF CARE mg/dL TEST, GLUCOSE Specimen Anatomical Collection Method Collection Time Receive d Time (Source) Location / / Volume Laterality 02/04/2014 9:58 PM 06/16/201 4 CDT 10:05 PM CDT Migel Merchant [...] LAB - BEAJ POCT Performing Organization Address City/[facility]/ZIP Code Phon e Number FV POINT OF CARE TEST, GLUCOSE POINT OF CARE TEST, GLUCOSE (ABNORMAL) Glucose by meter (02/04/2014 7:57 PM CDT) athologist Signature Glucose 167 (H) 60 - 99 POINT OF CARE mg/dL TEST, GLUCOSE Specimen Anatomical Collection Method Collection Time Receive d Time (Source) Location / / Volume Laterality 02/04/2014 7:57 PM 4 8:00 CDT PM CDT Migel LARES - BEAKER POCT Performing Organization Address City/[facility]/ZIP Code Phon e Number FV POINT OF CARE TEST, GLUCOSE POINT OF CARE TEST, GLUCOSE Troponin I (02/04/2014 7:10 PM CDT) athologist Signature Troponin I 0.016 0.000 - [facility] 0.034 ug/L CAMPUS LABS Specimen Anatomical Collection Method Collection Time Receive d Time (Source) Location / / Volume Laterality Blood specimen 02/04/2014 7:10 PM 014 7:23 (specimen) CDT PM CDT Adeline Diaz MD LAB - BLOOD ORDERABLES Performing Organization Address City/State/ZIP Code Phon e Number [address] [address] [facility] LABS (ABNORMAL) Glucose by meter (02/04/2014 7:01 PM CDT) P athologist Signature Glucose 157 (H) 60 - 99 POINT OF CARE mg/dL TEST, GLUCOSE Specimen Anatomical Collection Method Collection Time Receive d Time (Source) Location / / Volume Laterality 02/04/2014 7:01 PM 4 7:05 CDT PM CDT Migel Merchant MD LAB - BEAKER POCT Performing Organization Address [facility] Phon e Number FV POINT OF [...] LAB - BEAKER POCT Performing Organization Address [facility] Phon e Number FV POINT OF [...] LAB - BEAKER POCT Performing Organization Address [facility] Phon e Number FV POINT OF [...] LAB - BEAJ POCT Performing Organization Address [facility] Phon e Number FV POINT OF [...] LAB - BEAKER POCT Performing Organization Address [facility] Phon e Number FV POINT OF [...] LAB - BEAJ POCT Performing Organization Address [facility] Phon e Number FV POINT OF CARE TEST, GLUCOSE POINT OF CARE TEST, GLUCOSE Troponin I (02/04/2014 12:42 PM CDT) athologist Signature Troponin I 0.025 0.000 - [facility] 0.034 ug/L [place] LABS Specimen Anatomical Collection Method Collection Time Receive d Time (Source) Location / / Volume Laterality Blood specimen 02/04/2014 12:42 4 (specimen) PM CDT 12:45 PM CDT Adeline Diaz MD LAB - BLOOD ORDERABLES Performing Organization Address City/State/ZIP Code Phon e Number [facility] [address] [place] [address] [facility] LABS (ABNORMAL) Glucose by meter (02/04/2014 12:27 PM CDT) athologist Signature Glucose 140 (H) 60 - 99 POINT OF CARE mg/dL TEST, GLUCOSE Specimen Anatomical Collection Method Collection Time Receive d Time (Source) Location / / Volume Laterality 02/04/2014 12:27 02/04/2014 PM CDT 12:30 PM CDT Migel LARES - BEAJ POCT [...] Chavez PA-C ECG ORDERABLES Performing Organization Address City/State/ZIP Code Phon e Number RADIOLOGY RESULTS (ABNORMAL) Glucose by meter (02/04/2014 9:02 AM CDT) P athologist Signature Glucose 203 (H) 60 - 99 POINT OF CARE mg/dL TEST, GLUCOSE Specimen Anatomical Collection Method Collection Time Receive d Time (Source) Location / / Volume Laterality 02/04/2014 9:02 AM 4 9:05 CDT AM CDT Migel JONES POCT Performing [...] EKG 12-lead, complete (02/04/2014 7:03 AM CDT) [facility] Method Time Signature Interpretation ECG Click View RADIOLOGY Image link RESULTS to view waveform and result Specimen (Source) Anatomical Collection Method Collection Time Re ceived Time Location / / Volume Laterality 02/04/2014 7:03 AM CDT Caitlin Owens MD ECG ORDERABLES Performing Organization Address City/State/ZIP Code Phon e Number RADIOLOGY RESULTS (ABNORMAL) Glucose by meter (02/04/2014 6:09 AM CDT) athologist Signature Glucose 160 (H) 60 - 99 POINT OF CARE mg/dL TEST, GLUCOSE Specimen Anatomical Collection Method Collection Time Receive d Time (Source) Location / / Volume Laterality 02/04/2014 6:09 AM 4 6:15 CDT AM CDT Migel LARES - BEAKER POCT Performing Organization Address City/State/ZIP Code Phon e Number FV POINT OF CARE TEST, GLUCOSE POINT OF CARE TEST, GLUCOSE Troponin I (02/04/2014 5:49 AM CDT) athologist Signature Troponin I ES <0.012 0.000 - [facility] 0.034 ug/L CAMPUS LABS Specimen Anatomical Collection Method Collection Time Receive d Time (Source) Location / / Volume Laterality 02/04/2014 5:49 AM 4 5:51 CDT AM CDT Caitlin Owens MD LAB - BLOOD ORDERABLES Performing Organization Address City/State/ZIP Code Phon e Number [phone] [place] [address] LABS (ABNORMAL) Basic metabolic panel (02/04/2014 5:49 AM CDT) [facility] Method Time Signature Sodium 142 133 - 144 [facility] mmol/L [facility] LABS Potassium 4.9 3.4 - 5.3 [facility] mmol/L [facility] LABS Chloride 107 94 - 109 [facility] mmol/L [facility] LABS Carbon Dioxide 23 20 - 32 [facility] mmol/L [facility] LABS Anion Gap 12 6 - 17 [facility] mmol/L [facility] LABS Glucose 151 (H) 60 - 99 [facility] mg/dL [facility] LABS Urea Nitrogen 57 (H) 7 - 30 [facility] mg/dL [facility] LABS Creatinine 5.94 (H) 0.66 - [facility] 1.25 mg/dL [facility] LABS GFR Estimate 10 (L) >60 [facility] mL/min/1.7 [place] m2 CAMPUS LABS GFR Estimate If 12 (L) >60 [facility] Black mL/min/1.7 [place] m2 CAMPUS LABS Calcium 9.4 8.5 - 10.4 [facility] mg/dL [facility] LABS Specimen Anatomical Collection Method Collection Time Receive d Time (Source) Location / / Volume Laterality Blood specimen 02/04/2014 5:49 AM 014 5:51 (specimen) CDT AM CDT Omaira Chavez PA-C LAB - BLOOD ORDERABLES Performing Organization Address City/[facility]/ZIP Code Phon e Number [address] LABS (ABNORMAL) Phosphorus (02/04/2014 5:49 AM CDT) P athologist Signature Phosphorus 6.3 (H) 2.5 - 4.5 [facility] mg/dL [place] LAB[facility] Specimen Anatomical Collection Method Collection Time Receive d Time (Source) Location / / Volume Laterality Blood specimen 02/04/2014 5:49 AM 014 5:51 (specimen) CDT AM CDT Omaira Chavez PA-C LAB - BLOOD ORDERABLES Performing Organization Address City/State/ZIP Code Phon e Number [facility] [address] LABS Magnesium (02/04/2014 5:49 AM CDT) P athologist Signature Magnesium 2.1 1.6 - 2.3 [facility] mg/dL [place] LABS Specimen Anatomical Collection Method Collection Time Receive d Time (Source) Location / / Volume Laterality Blood specimen 02/04/2014 5:49 AM 014 5:51 (specimen) CDT AM CDT Omaira Chavez PA-C LAB - BLOOD ORDERABLES Performing Organization Address City/State/ZIP Code Phon e Number [facility] [address] [place] [address] [facility] (ABNORMAL) CBC with platelets differential (02/04/2014 5:49 AM CDT) [facility] gist Method Time Signature WBC 13.8 (H) 4.0 - [facility] 11.0 [facility] 10e9/L CAMPUS LABS RBC Count 3.10 (L) 4.4 - 5.9 [facility] 10e12/L [facility] LABS Hemoglobin 9.5 (L) 13.3 - [facility] 17.7 g/dL [facility] LABS Hematocrit 28.7 (L) 40.0 - [facility] 53.0 % [facility] LABS MCV 93 78 - 100 [facility] fl [facility] LABS MCH 30.6 26.5 - [facility] 33.0 pg [facility] LABS MCHC 33.1 31.5 - [facility] 36.5 g/dL [facility] LABS RDW 14.6 10.0 - [facility] 15.0 % [facility] LABS Platelet Count 91 (L) 150 - 450 [facility] 10e9/L [facility] LABS Diff Method Automated [facility] Method [facility] LABS % Neutrophils 95.8 % [facility] LABS % Lymphocytes 1.2 % [facility] LABS % Monocytes 2.8 % [facility] LABS % Eosinophils 0.0 % [facility] LABS % Basophils 0.0 % [facility] LABS % Immature 0.2 % [facility] Granulocytes [facility] LABS Absolute 13.2 (H) 1.6 - 8.3 [facility] Neutrophil 10e9/L [facility] LABS Absolute 0.2 (L) 0.8 - 5.3 [facility] Lymphocytes 10e9/L [facility] LABS Absolute 0.4 0.0 - 1.3 [facility] Monocytes 10e9/L [facility] LABS Absolute 0.0 0.0 - 0.7 [facility] Eosinophils 10e9/L [facility] LABS Absolute 0.0 0.0 - 0.2 [facility] Basophils 10e9/L [facility] LABS Abs Immature 0.0 0 - 0.4 [facility] Granulocytes 10e9/L [facility] LABS Specimen Anatomical Collection Method Collection Time Receive d Time (Source) Location / / Volume Laterality Blood specimen 02/04/2014 5:49 AM 014 5:51 (specimen) CDT AM CDT Omaira Chavez PA-C LAB - BLOOD ORDERABLES Performing Organization Address City/State/ZIP Code Phon e Number [address] [address] [facility] LABS (ABNORMAL) Glucose by meter [...] AM 4 4:00 CDT AM CDT Migel LRAES - BEAJ POCT Performing Organization Address City/[facility]/ZIP Code Phon e Number FV POINT [...] 3:05 CDT AM CDT Migel LARES - BEAJ [...] LAB - BEAJ POCT Performing Organization Address City/[facility]/ZIP Code Phon e Number FV POINT [...] LAB - BEAKER POCT Performing Organization Address City/[facility]/ZIP Code Phon e Number FV POINT OF CARE TEST, GLUCOSE POINT OF CARE TEST, GLUCOSE Potassium (02/03/2014 10:16 PM CDT) P athologist Signature Potassium 4.8 3.4 - 5.3 [facility] mmol/L CAMPUS LABS Specimen Anatomical Collection Method Collection Time Receive d Time (Source) Location / / Volume Laterality Blood specimen 02/03/2014 10:16 4 (specimen) PM CDT 10:19 PM CDT Caitlin Owens MD LAB - BLOOD ORDERABLES Performing Organization Address City/State/ZIP Code Phon e Number [facility] [address] [place], [place] [phone] [place] [address] LABS (ABNORMAL) Hemoglobin (02/03/2014 10:16 PM CDT) P athologist Signature Hemoglobin 9.4 (L) 13.3 - 17.7 [facility] g/dL [place] LABS Specimen Anatomical Collection Method Collection Time Receive d Time (Source) Location / / Volume Laterality Blood specimen 02/03/2014 10:16 4 (specimen) PM CDT 10:19 PM CDT Caitlin Owens MD LAB - BLOOD ORDERABLES Performing Organization Address City/[facility]/ZIP Code Phon e Number [address] [address] [facility] LABS (ABNORMAL) Glucose by meter (02/03/2014 9:55 PM CDT) athologist Signature Glucose 167 (H) 60 - 99 POINT OF CARE mg/dL TEST, GLUCOSE Specimen Anatomical Collection Method Collection Time Receive d Time (Source) Location / / Volume Laterality 02/03/2014 9:55 PM 4 CDT 10:00 PM CDT Migel LARES - ROBERT POCT Performing Organization Address City/[facility]/ZIP Code Phon e Number FV POINT [...] 9:05 CDT PM CDT Migel LARES - ROBERT [...] PM 4 8:10 CDT PM CDT Migel Nathan Finger MD LAB - BEAKER POCT Performing Organization [...] athologist Signature Potassium 4.7 3.4 - 5.3 [facility] mmol/L CAMPUS LABS Specimen Anatomical Collection Method Collection Time Receive d Time (Source) Location / / Volume Laterality Blood specimen 02/03/2014 6:52 PM 014 6:53 (specimen) CDT PM CDT Caitlin Owens MD LAB - BLOOD ORDERABLES Performing Organization Address City/[facility]/ZIP Code Phon e Number [facility] [address] LABS (ABNORMAL) Hemoglobin (02/03/2014 6:52 PM CDT) athologist Signature Hemoglobin 9.6 (L) 13.3 - 17.7 [facility] g/dL CAMPUS LABS Specimen Anatomical Collection Method Collection Time Receive d Time (Source) Location / / Volume Laterality Blood specimen 02/03/2014 6:52 PM 014 6:53 (specimen) CDT PM CDT Caitlin Owens MD LAB - BLOOD ORDERABLES Performing Organization Address City/[facility]/ZIP Code Phon e Number [facility] [address] LABS (ABNORMAL) Glucose by meter (02/03/2014 6:00 PM CDT) athologist Signature Glucose 140 (H) 60 - 99 POINT OF CARE mg/dL TEST, GLUCOSE Specimen Anatomical Collection Method Collection Time Receive d Time (Source) Location / / Volume Laterality 02/03/2014 6:00 PM 4 6:05 CDT PM CDT Migel Merchant MD LAB - BEAJ POCT Performing Organization Address [facility]/ZIP Code Phon e Number FV POINT [...] LAB - ROBERT POCT Performing Organization Address [facility] Phon e Number FV POINT OF [...] LAB - BEAJ POCT Performing Organization Address [facility] Phon e Number FV POINT OF [...] LAB - BEAJ POCT Performing Organization Address [facility] Phon e Number FV POINT OF CARE TEST, GLUCOSE POINT OF CARE TEST, GLUCOSE Potassium (02/03/2014 1:41 PM CDT) P athologist Signature Potassium 4.7 3.4 - 5.3 [facility] mmol/L CAMPUS LABS Specimen Anatomical Collection Method Collection Time Receive d Time (Source) Location / / Volume Laterality Blood specimen 02/03/2014 1:41 PM 014 1:43 (specimen) CDT PM CDT Caitlin Owens MD LAB - BLOOD ORDERABLES Performing Organization Address City/[facility]/ZIP Code Phon e Number [phone] [place] [address] LABS (ABNORMAL) Hemoglobin (02/03/2014 1:41 PM CDT) athologist Signature Hemoglobin 9.8 (L) 13.3 - 17.7 [facility] g/dL CAMPUS LABS Specimen Anatomical Collection Method Collection Time Receive d Time (Source) Location / / Volume Laterality Blood specimen 02/03/2014 1:41 PM 014 1:43 (specimen) CDT PM CDT Caitlin Owens MD LAB - BLOOD ORDERABLES Performing Organization Address [facility] Code Phon e Number [phone] [place] [address] LABS (ABNORMAL) Glucose by meter (02/03/2014 1:10 PM CDT) athologist Signature Glucose 135 (H) 60 - 99 POINT OF CARE mg/dL TEST, GLUCOSE Specimen Anatomical Collection Method Collection Time Receive d Time (Source) Location / / Volume Laterality 02/03/2014 1:10 PM 4 1:15 CDT PM CDT Migel Merchant MD LAB - BEAKER POCT Performing Organization Address City/[facility]/ZIP Code Phon e Number FV POINT [...] athologist Signature Potassium 4.8 3.4 - 5.3 [facility] mmol/L CAMPUS LABS Specimen Anatomical Collection Method Collection Time Receive d Time (Source) Location / / Volume Laterality Blood specimen 02/03/2014 10:11 4 (specimen) AM CDT 10:23 AM CDT Caitlin Owens MD LAB - BLOOD ORDERABLES Performing Organization Address City/State/ZIP Code Phon e Number [facility] [address] LABS (ABNORMAL) Hemoglobin (02/03/2014 10:11 AM CDT) P athologist Signature Hemoglobin 9.7 (L) 13.3 - 17.7 [facility] g/dL CAMPUS LABS Specimen Anatomical Collection Method Collection Time Receive d Time (Source) Location / / Volume Laterality Blood specimen 02/03/2014 10:11 4 (specimen) AM CDT 10:23 AM CDT Caitlin Owens MD LAB - BLOOD ORDERABLES Performing Organization Address City/State/ZIP Code Phon e Number [facility] [address] LABS (ABNORMAL) Glucose by meter (02/03/2014 [...] / / Volume Laterality 02/03/2014 6:05 AM 201 4 6:10 CDT AM CDT Migel Merchant MD LAB - BEAKER POCT Performing Organization Address City/State/ZIP Code Phon e Number FV POINT OF CARE TEST, GLUCOSE POINT OF CARE TEST, GLUCOSE (ABNORMAL) Basic metabolic panel (02/03/2014 5:38 AM CDT) [facility] gist Method Time Signature Sodium 141 133 - 144 [facility] mmol/L [facility] Potassium 4.4 3.4 - 5.3 [facility] mmol/L [facility] Chloride 105 94 - 109 [facility] mmol/L [facility] Carbon Dioxide 20 20 - 32 [facility] mmol/L [facility] Anion Gap 15 6 - 17 [facility] mmol/L [facility] Glucose 170 (H) 60 - 99 [facility] mg/dL [facility]S Urea Nitrogen 49 (H) 7 - 30 [facility] mg/dL [facility]S Creatinine 6.38 (H) 0.66 - [facility] 1.25 mg/dL [facility] GFR Estimate 9 (L) >60 [facility] mL/min/1.7 [facility] m2 CAMPUS LABS GFR Estimate If 11 (L) >60 [facility] Black mL/min/1.7 [facility] m2 CAMPUS LABS Calcium 9.1 8.5 - 10.4 [facility] mg/dL [facility] LABS Specimen Anatomical Collection Method Collection Time Receive d Time (Source) Location / / Volume Laterality Blood specimen 02/03/2014 5:38 AM 2 014 5:40 (specimen) CDT AM CDT Omaira Chavez PA-C LAB - BLOOD ORDERABLES Performing Organization Address City/State/ZIP Code Phon e Number [address] [address] [facility]ITY [facility]AMP[facility] LABS (ABNORMAL) Phosphorus (02/03/2014 5:38 AM CDT) athologist Signature Phosphorus 4.7 (H) 2.5 - 4.5 [facility] UN[facility]ERSITY mg/dL CAMPUS LABS Specimen Anatomical Collection Method Collection Time Receive d Time (Source) Location / / Volume Laterality Blood specimen 02/03/2014 5:38 AM 014 5:40 (specimen) CDT AM CDT Omaira Chavez PA-C LAB - BLOOD ORDERABLES Performing Organization Address City/State/ZIP Code Phon e Number [facility] [address] LABS Magnesium (02/03/2014 5:38 AM CDT) P athologist Signature Magnesium 2.0 1.6 - 2.3 [facility] mg/dL [place] LABS Specimen Anatomical Collection Method Collection Time Receive d Time (Source) Location / / Volume Laterality Blood specimen 02/03/2014 5:38 AM 014 5:40 (specimen) CDT AM CDT Omaira Chavez PA-C LAB - BLOOD ORDERABLES Performing Organization Address City/[facility]/ZIP Code Phon e Number [facility] [address] LABS (ABNORMAL) CBC with platelets differential (02/03/2014 5:38 AM CDT) Patholo gist Method Time Signature WBC 13.2 (H) 4.0 - [facility] 11.0 [facility] 10e9/L [place] LABS RBC Count 3.20 (L) 4.4 - 5.9 [facility] 10e12/L [facility] LABS Hemoglobin 9.9 (L) 13.3 - [facility] 17.7 g/dL [facility] LABS Hematocrit 30.2 (L) 40.0 - [facility] 53.0 % [facility] LABS MCV 94 78 - 100 [facility] fl [facility] LABS MCH 30.9 26.5 - [facility] 33.0 pg [facility] LABS MCHC 32.8 31.5 - [facility] 36.5 g/dL [facility] LABS RDW 14.5 10.0 - [facility] 15.0 % [facility] LABS Platelet Count 108 (L) 150 - 450 [facility] 10e9/L [facility] LABS Diff Method Automated [facility] Method [facility] LABS % Neutrophils 96.9 % [facility] LABS % Lymphocytes 0.7 % [facility] LABS % Monocytes 2.1 % [facility] LABS % Eosinophils 0.0 % [facility]AMP[facility] LABS % Basophils 0.1 % [facility] LABS % Immature 0.2 % [facility] Granulocytes [facility] LABS Absolute 12.8 (H) 1.6 - 8.3 [facility] Neutrophil 10e9/L [facility] LABS Absolute 0.1 (L) 0.8 - 5.3 [facility] Lymphocytes 10e9/L [facility] LABS Absolute 0.3 0.0 - 1.3 [facility] Monocytes 10e9/L [facility] LABS Absolute 0.0 0.0 - 0.7 [facility] Eosinophils 10e9/L [facility] LABS Absolute 0.0 0.0 - 0.2 [facility] Basophils 10e9/L [place] [facility] LABS Abs Immature 0.0 0 - 0.4 [facility] Granulocytes 10e9/L [facility] LABS Specimen Anatomical Collection Method Collection Time Receive d Time (Source) Location / / Volume Laterality Blood specimen 02/03/2014 5:38 AM 014 5:40 (specimen) CDT AM CDT Omaira Chavez PA-C LAB - BLOOD ORDERABLES Performing Organization Address City/State/ZIP Code Phon e Number [address] LABS (ABNORMAL) Hemoglobin A1c (02/03/2014 5:38 AM CDT) Analysis Performed At Patho logist Time Signature Hemoglobin A1C 6.2 (H) 4.3 - 6.0 [facility] % [facility] LABS Specimen Anatomical Collection Method Collection Time Receive d Time (Source) Location / / Volume Laterality Blood specimen 02/03/2014 5:38 AM 014 5:40 (specimen) CDT AM CDT Caitlin Owens MD LAB - BLOOD ORDERABLES Performing Organization Address City/State/ZIP Code Phon e Number [address] LABS (ABNORMAL) Glucose by meter (02/03/2014 [...] TEST, GLUCOSE Potassium (02/03/2014 1:18 AM CDT) P athologist Signature Potassium 4.7 3.4 - 5.3 [facility] mmol/L [place] LABS Specimen Anatomical Collection Method Collection Time Receive d Time (Source) Location / / Volume Laterality Blood specimen 02/03/2014 1:18 AM 014 1:20 (specimen) CDT AM CDT Caitlin Owens MD LAB - BLOOD ORDERABLES Performing Organization Address City/[facility]/ZIP Code Phon e Number [address] LABS (ABNORMAL) Hemoglobin (02/03/2014 1:18 AM CDT) P athologist Signature Hemoglobin 9.8 (L) 13.3 - 17.7 [facility] g/dL [place] LABS Specimen Anatomical Collection Method Collection Time Receive d Time (Source) Location / / Volume Laterality Blood specimen 02/03/2014 1:18 AM 014 1:20 (specimen) CDT AM CDT Caitlin Owens MD LAB - BLOOD ORDERABLES Performing Organization Address City/[facility]/ZIP Code Phon e Number [address] LABS (ABNORMAL) Glucose by meter (02/03/2014 1:16 AM CDT) P athologist Signature Glucose 186 (H) 60 - 99 POINT OF CARE mg/dL TEST, GLUCOSE Specimen Anatomical Collection Method Collection Time Receive d Time (Source) Location / / Volume Laterality 02/03/2014 1:16 AM 4 1:20 CDT AM CDT Migel Merchant MD LAB - BEAKER POCT Performing Organization Address City/[facility]/ZIP Code Phon e Number FV POINT [...] LAB - BEAKER POCT Performing Organization Address City/[facility]/ZIP Code Phon e Number FV POINT [...] athologist Signature Phosphorus 4.4 2.5 - 4.5 [facility] mg/dL CAMPUS LABS Specimen Anatomical Collection Method Collection Time Receive d Time (Source) Location / / Volume Laterality Blood specimen 02/02/2014 10:50 201 4 (specimen) PM CDT 11:06 PM CDT Caitlin Owens MD LAB - BLOOD ORDERABLES Performing Organization Address City/[facility]/ZIP Code Phon e Number [facility] [address] LABS Magnesium (02/02/2014 10:50 PM CDT) athologist Signature Magnesium 1.8 1.6 - 2.3 [facility] mg/dL [place] LABS Specimen Anatomical Collection Method Collection Time Receive d Time (Source) Location / / Volume Laterality Blood specimen 02/02/2014 10:50 201 4 (specimen) PM CDT 11:06 PM CDT Caitlin Owens MD LAB - BLOOD ORDERABLES Performing Organization Address City/[facility]/ZIP Code Phon e Number [facility] [address] LABS (ABNORMAL) Basic metabolic panel (02/02/2014 10:50 PM CDT) [facility] gist Method Time Signature Sodium 138 133 - 144 [facility] mmol/L [facility] LABS Potassium 4.5 3.4 - 5.3 [facility] mmol/L [facility] LABS Chloride 104 94 - 109 [facility] mmol/L [facility] LABS Carbon Dioxide 25 20 - 32 [facility] mmol/L [facility] LABS Anion Gap 10 6 - 17 [facility] mmol/L [facility] LABS Glucose 134 (H) 60 - 99 [facility] mg/dL [facility] LABS Urea Nitrogen 44 (H) 7 - 30 [facility] mg/dL [facility] LABS Creatinine 6.14 (H) 0.66 - [facility] 1.25 mg/dL [facility] LABS GFR Estimate 9 (L) >60 [facility] mL/min/1.7 [place] [address] CAMPUS LABS GFR Estimate If 11 (L) >60 [facility] Black mL/min/1.7 [place] [address] CAMPUS LABS Calcium 8.8 8.5 - 10.4 [facility] mg/dL [facility] LABS Specimen Anatomical Collection Method Collection Time Receive d Time (Source) Location / / Volume Laterality Blood specimen 02/02/2014 10:50 4 (specimen) PM CDT 11:06 PM CDT Caitlin Owens MD LAB - BLOOD ORDERABLES Performing Organization Address City/State/ZIP Code Phon e Number [facility] [address] [place] [address] [place] [facility] LAB[facility] (ABNORMAL) CBC with platelets differential (02/02/2014 10:50 PM CDT) [facility] gist Method Time Signature WBC 8.2 4.0 - [facility] 11.0 [facility] 10e9/L [place] LABS RBC Count 3.34 (L) 4.4 - 5.9 [facility] 10e12/L [facility] LABS Hemoglobin 10.3 (L) 13.3 - [facility] 17.7 g/dL [facility] LABS Hematocrit 30.9 (L) 40.0 - [facility] 53.0 % [facility] LABS MCV 93 78 - 100 [facility] fl [facility] LABS MCH 30.8 26.5 - [facility] 33.0 pg [facility] LABS MCHC 33.3 31.5 - [facility] 36.5 g/dL [facility] LABS RDW 14.3 10.0 - [facility] 15.0 % [facility] LABS Platelet Count 79 (L) 150 - 450 [facility] 10e9/L [facility] LABS Diff Method Automated [facility] Method [facility] LABS % Neutrophils 96.7 % [facility] LABS % Lymphocytes 1.6 % [facility] % Monocytes 1.2 % [facility] % Eosinophils 0.4 % [facility] % Basophils 0.0 % [facility] LABS % Immature 0.1 % [facility] Granulocytes [facility] LABS Absolute 7.9 1.6 - 8.3 [facility] Neutrophil 10e9/L [facility] LABS Absolute 0.1 (L) 0.8 - 5.3 [facility] Lymphocytes 10e9/L [facility] LABS Absolute 0.1 0.0 - 1.3 [facility] Monocytes 10e9/L [facility] LABS Absolute 0.0 0.0 - 0.7 [facility] Eosinophils 10e9/L [facility] LABS Absolute 0.0 0.0 - 0.2 [facility] Basophils 10e9/L [facility] LABS Abs Immature 0.0 0 - 0.4 [facility] Granulocytes 10e9/L [facility] LABS Specimen Anatomical Collection Method Collection Time Receive d Time (Source) Location / / Volume Laterality Blood specimen 02/02/2014 10:50 4 (specimen) PM CDT 11:06 PM CDT Caitlin Owens MD LAB - BLOOD ORDERABLES Performing Organization Address City/State/ZIP Code Phon e Number [facility] [address] LABS (ABNORMAL) VENOUS PANEL (02/02/2014 10:09 PM CDT) [facility] Method Time Signature Ph Venous 7.31 (L) 7.32 - [facility] 7.43 pH [facility] LABS PCO2 Venous 52 (H) 40 - 50 [facility] mm Hg [facility] LABS PO2 Venous 34 25 - 47 [facility] mm Hg [facility] LABS Bicarbonate 26 21 - 28 [facility] Venous mmol/L [facility] LABS Base Deficit 0.3 mmol/L [facility] Venous [facility] LABS Comment: Reference range: -7.7 to 1.9 FIO2 45 [facility] LABS Sodium 137 133 - 144 mmol/L [facility] LABS Potassium 4.4 3.4 - 5.3 mmol/L [facility] LABS Hemoglobin 10.0 (L) 13.3 - 17.7 g/dL [facility] LABS Glucose 116 (H) 60 - 99 mg/dL [facility] LABS Calcium Ionized Whole Blood 4.8 4.4 - 5.2 mg/dL [facility] LABS Specimen Anatomical Collection Method Collection Time Receive d Time (Source) Location / / Volume Laterality 02/02/2014 10:09 02/02/2014 PM CDT 10:14 PM CDT Migel Merchant MD LAB - BLOOD ORDERABLES Performing Organization Address City/[facility]/ZIP Code Phon e Number [facility] [address] LABS (ABNORMAL) Glucose by meter (02/02/2014 9:24 PM CDT) P athologist Signature Glucose 129 (H) 60 - 99 POINT OF CARE mg/dL TEST, GLUCOSE Specimen Anatomical Collection Method Collection Time Receive d Time (Source) Location / / Volume Laterality 02/02/2014 9:24 PM 4 9:31 CDT PM CDT Migel Merchant MD LAB - ROBERT POCT Performing Organization Address City/[facility] Phon e Number FV POINT OF CARE TEST, GLUCOSE POINT OF CARE TEST, GLUCOSE (ABNORMAL) Glucose by meter (02/02/2014 8:13 PM CDT) athologist Signature Glucose 130 (H) 60 - 99 POINT OF CARE mg/dL TEST, GLUCOSE Specimen Anatomical Collection Method Collection Time Receive d Time (Source) Location / / Volume Laterality 02/02/2014 8:13 PM 4 8:15 CDT PM CDT Migel LARES - BEAJ POCT Performing Organization Address City/[facility] Phon e Number FV POINT OF CARE TEST, GLUCOSE POINT OF CARE TEST, GLUCOSE (ABNORMAL) VENOUS PANEL (02/02/2014 6:40 PM CDT) P athologist Signature Ph Venous 7.35 7.32 - [facility] 7.43 pH [facility] LABS PCO2 Venous 50 40 - 50 mm [facility] Hg [facility] LABS PO2 Venous 46 25 - 47 mm [facility] Hg [facility] LABS Bicarbonate 28 21 - 28 [facility] Venous mmol/L [facility] LABS Base Excess 1.8 mmol/L [facility] Venous [facility] LABS Comment: Reference range: -7.7 to 1.9 FIO2 100% [facility] LABS Sodium 141 133 - 144 mmol/L [facility] LABS Potassium 3.7 3.4 - 5.3 mmol/L [facility] LABS Hemoglobin 10.3 (L) 13.3 - 17.7 g/dL [facility] LABS Glucose 76 60 - 99 mg/dL [facility] LABS Calcium Ionized Whole Blood 4.8 4.4 - 5.2 mg/dL [facility] LABS Specimen Anatomical Collection Method Collection Time Receive d Time (Source) Location / / Volume Laterality 02/02/2014 6:40 PM 4 6:44 CDT PM CDT Migel Merchant MD LAB - BLOOD ORDERABLES Performing Organization Address City/State/ZIP Code Phon e Number [facility] [address] [place] [address] [facility] LABS Glucose by meter (02/02/2014 [...] 3:50 CDT PM CDT Migel Merchant MD LAB - BEAKER POCT Performing Organization Address [facility] Phon e Number FV POINT OF [...] MARYELLEN Blood component (02/02/2014 2:07 PM CDT) [facility] Method Time Signature Unit Number [id number] [facility] LABS Blood Red Blood [facility] Component Cells [facility] LABS Reduced Division 00 [facility] LABS Status of No longer [facility] Unit available [facility] 02/06/2014 HOSPITAL LAB 0300 Specimen Anatomical Collection Method Collection Time Receive d Time (Source) Location / / Volume Laterality 02/02/2014 2:07 PM 4 2:10 CDT PM CDT Caitlin Owens MD LABORATORY Performing Organization Address City/[facility]/ZIP Code Phon e Number [place] [address] [address], [place] [address] [facility] LABS [facility] LAB Blood component (02/02/2014 2:07 PM CDT) [facility] Method Time Signature Unit Number [id number] [facility] LABS Blood Red Blood [facility] Component Cells [facility] LABS Reduced Division 00 [facility] LABS Status of No longer [facility] Unit available [facility] 02/06/2014 HOSPITAL LAB 0300 Specimen Anatomical Collection Method Collection Time Receive d Time (Source) Location / / Volume Laterality 02/02/2014 2:07 PM 4 2:10 CDT PM CDT Caitlin Owens MD LABORATORY Performing Organization Address City/[facility]/ZIP Code Phon e Number [place] [address] [address], [place] [address] [facility] LABS [facility] LAB ABO/Rh type and screen (02/02/2014 2:07 PM CDT) Patholo gist Method Time Signature Units Ordered 2 [facility] LABS ABO A [facility] LABS RH(D) Pos [facility] LABS Antibody Neg [facility] Screen [facility] LABS Test Valid [facility] Only At [facility] BLOOD BANK Center,[place] LAB w Hospital Specimen 02/05/2014 [facility] Expires [place] BLOOD BANK LAB Crossmatch Red Blood [facility] Cells [facility] LABS Specimen Anatomical Collection Method Collection Time Receive d Time (Source) Location / / Volume Laterality Blood specimen 02/02/2014 2:07 PM 014 2:10 (specimen) CDT PM CDT Caitlin Owens MD LAB - BLOOD BANK TEST ORDER Performing Organization Address City/State/ZIP Code Phon e Number [facility] [address] [place], [place] [id number] [place] [address] LABS [facility] BLOOD BANK LAB (ABNORMAL) Lipid Profile (02/02/2014 2:07 PM CDT) P athologist Signature Cholesterol 135 <200 mg/dL [facility] LABS Comment: LDL Cholesterol is the primary guide to therapy. The NCEP recommends further evaluation of: patients with cholesterol greater than 200 mg/dL if additional risk facto rs are present, cholesterol greater than 240 mg/dL, triglycerides greater than 1 50 mg/dL, or HDL less than 40 mg/dL. Triglycerides 124 0 - 150 mg/dL [facility] LABS HDL Cholesterol 34 (L) >40 mg/dL [facility] [place] LABS LDL Cholesterol Calculated 77 0 - 129 mg/dL [facility] LABS Comment: LDL Cholesterol is the primary guide to therapy: LDL-cholesterol goal in high risk patients is <100 mg/dL and in very high risk patients is <70 mg/dL. VLDL-Cholesterol 25 0 - 30 mg/dL [facility] Cholesterol/HDL Ratio 4.0 0.0 - 5.0 [facility] Specimen Anatomical Collection Method Collection Time Receive d Time (Source) Location / / Volume Laterality Blood specimen 02/02/2014 2:07 PM 014 2:08 (specimen) CDT PM CDT Caitlin Owens MD LAB - BLOOD ORDERABLES Performing Organization Address City/[facility]/ZIP Code Phon e Number [facility] [address] LABS (ABNORMAL) Hemoglobin A1c (02/02/2014 2:07 PM CDT) Analysis Performed At Patho logist Time Signature Hemoglobin A1C 6.2 (H) 4.3 - 6.0 [facility] Specimen Anatomical Collection Method Collection Time Receive d Time (Source) Location / / Volume Laterality Blood specimen 02/02/2014 2:07 PM 014 2:08 (specimen) CDT PM CDT Caitlin Owens MD LAB - BLOOD ORDERABLES Performing Organization Address City/[facility]/ZIP Code Phon e Number [facility] [address] LABS Hepatitis C antibody (02/02/2014 2:07 PM CDT) [facility] gist Method Time Signature Hepatitis C Negative NEG [facility] Antibody MICROBIOLOGY Specimen Anatomical Collection Method Collection Time Receive d Time (Source) Location / / Volume Laterality Blood specimen 02/02/2014 2:07 PM 014 2:08 (specimen) CDT PM CDT Caitlin Owens MD LAB - BLOOD ORDERABLES Performing Organization Address City/[facility]/ZIP Code Phon e Number [facility] [address] [place], [place] [id number] [place] [address] MICROBIOLOGY Hepatitis B core antibody IgM (02/02/2014 2:07 PM CDT) [facility] gist Method Time Signature Hepatitis B Negative NEG [facility] Core IgM MICROBIOLOGY Specimen Anatomical Collection Method Collection Time Receive d Time (Source) Location / / Volume Laterality Blood specimen 02/02/2014 2:07 PM 014 2:08 (specimen) CDT PM CDT Caitlin Owens MD LAB - BLOOD ORDERABLES Performing Organization Address City/[facility]/ZIP Code Phon e Number [id number] [place] [address] MICROBIOLOGY Hepatitis B surface antigen (02/02/2014 2:07 PM CDT) [facility] gist Method Time Signature Hep B Surface Negative NEG [facility] Agn MICROBIOLOGY Specimen Anatomical Collection Method Collection Time Receive d Time (Source) Location / / Volume Laterality Blood specimen 02/02/2014 2:07 PM 2 014 2:08 (specimen) CDT PM CDT Caitlin Owens MD LAB - BLOOD ORDERABLES Performing Organization Address City/[facility]/ZIP Code Phon e Number [facility] [address] MICROBIOLOGY HIV Antigen Antibody Combo (02/02/2014 2:07 PM CDT) [facility] Method Time Signature HIV Antigen Nonreactive NR [facility] Antibody HIV-1 p24 Ag & HIV-1/HIV-2 Ab Not Detected [facility] LABS Specimen Anatomical Collection Method Collection Time Receive d Time (Source) Location / / Volume Laterality Blood specimen 02/02/2014 2:07 PM 2 014 2:08 (specimen) CDT PM CDT Caitlin Owens MD LAB - BLOOD ORDERABLES Performing Organization Address City/[facility]/ZIP Code Phon e Number [facility] [address] LABS EBV Capsid Antibody IgM (02/02/2014 2:07 PM CDT) [facility] Method [place] Signature EBV Capsid <0.2 0.0 - 0.8 [facility] Antibody IgM No detectable antibody. [facility] LABS Specimen Anatomical Collection Method Collection Time Receive d Time (Source) Location / / Volume Laterality Blood specimen 02/02/2014 2:07 PM 014 2:08 (specimen) CDT PM CDT Caitlin Owens MD LAB - BLOOD ORDERABLES Performing Organization Address City/[facility]/ZIP Code Phon e Number [facility] [address] LABS (ABNORMAL) EBV Capsid Antibody IgG (02/02/2014 2:07 PM CDT) [facility] Method [place] Signature EBV Capsid >8.0 0.0 - 0.8 [facility] Antibody IgG Positive, suggests recent or past exposure [facility] [place] LABS Specimen Anatomical Collection Method Collection Time Receive d Time (Source) Location / / Volume Laterality Blood specimen 02/02/2014 2:07 PM 014 2:08 (specimen) CDT PM CDT Caitlin Owens MD LAB - BLOOD ORDERABLES Performing Organization Address City/[facility]/ZIP Code Phon e Number [facility] [address] [place] [address] [facility] LABS CMV antibody IgM (02/02/2014 2:07 PM CDT) Analysis Performed At Patho logist Time Signature CMV Antibody <0.2 0.0 - 0.8 [facility] IgM Negative [facility] LABS Specimen Anatomical Collection Method Collection Time Receive d Time (Source) Location / / Volume Laterality Blood specimen 02/02/2014 2:07 PM 014 2:08 (specimen) CDT PM CDT Caitlin Owens MD LAB - BLOOD ORDERABLES Performing Organization Address City/[facility]/ZIP Code Phon e Number [facility] [address] [place], [place] [phone] [place] [address] LABS (ABNORMAL) CMV Antibody IgG (02/02/2014 2:07 PM CDT) P athologist Signature CMV Antibody 7.8 (H) 0.0 - 0.8 [facility] IgG [facility] LABS Comment: Positive Specimen Anatomical Collection Method Collection Time Receive d Time (Source) Location / / Volume Laterality Blood specimen 02/02/2014 2:07 PM 014 2:08 (specimen) CDT PM CDT Caitlin Owens MD LAB - BLOOD ORDERABLES Performing Organization Address City/[facility]/ZIP Code Phon e Number [facility] [address] [place], [place] [id number] [place] [address] LABS (ABNORMAL) Comprehensive metabolic panel (02/02/2014 2:07 PM CDT) Patholo gist Method Time Signature Sodium 141 133 - 144 [facility] mmol/L [facility] LABS Potassium 4.2 3.4 - 5.3 [facility] mmol/L [facility] LABS Chloride 101 94 - 109 [facility] mmol/L [facility] LABS Carbon Dioxide 26 20 - 32 [facility] mmol/L [facility] LABS Anion Gap 13 6 - 17 [facility] mmol/L [facility] LABS Glucose 112 (H) 60 - 99 [facility] mg/dL [facility] LABS Urea Nitrogen 42 (H) 7 - 30 [facility] mg/dL [facility] LABS Creatinine 6.03 (H) 0.66 - [facility] 1.25 [place] mg/dL [facility]US LABS GFR Estimate 9 (L) >60 [facility] mL/min/1. [place] 7m2 [place] [facility] GFR Estimate If 11 (L) >60 [facility] Black mL/min/1. [place] [address] LABS Calcium 9.9 8.5 - [facility] 10.4 [place] mg/dL [place] LABS Bilirubin Total 0.7 0.2 - 1.3 [facility] mg/dL [facility] LABS Albumin 4.2 3.3 - 4.9 [facility] g/dL [facility] LABS Protein Total 7.5 6.8 - 8.8 [facility] g/dL [facility] LABS Alkaline 88 40 - 150 [facility] Phosphatase U/L [facility]S ALT 33 0 - 70 [facility] U/L [facility] LABS AST 18 0 - 45 [facility] U/L [facility] LABS Specimen Anatomical Collection Method Collection Time Receive d Time (Source) Location / / Volume Laterality Blood specimen 02/02/2014 2:07 PM 014 2:08 (specimen) CDT PM CDT Caitlin Owens MD LAB - BLOOD ORDERABLES Performing Organization Address City/State/ZIP Code Phon e Number [address] LABS (ABNORMAL) CBC with platelets differential (02/02/2014 2:07 PM CDT) [facility] gist Method Time Signature WBC 6.3 4.0 - [facility] 11.0 [place] 10e9/L [place] LABS RBC Count 3.71 (L) 4.4 - 5.9 [facility] 10e12/L [facility] LABS Hemoglobin 11.5 (L) 13.3 - [facility] 17.7 g/dL [facility] LABS Hematocrit 33.7 (L) 40.0 - [facility] 53.0 % [facility] LABS MCV 91 78 - 100 [facility] fl [facility] LABS MCH 31.0 26.5 - [facility] 33.0 pg [facility] LABS MCHC 34.1 31.5 - [facility] 36.5 g/dL [facility] LABS RDW 14.0 10.0 - [facility] 15.0 % [facility] LABS Platelet Count 110 (L) 150 - 450 [facility] 10e9/L [facility] LABS Diff Method Automated [facility] Method [facility] LABS % Neutrophils 52.4 % [facility] LABS % Lymphocytes 32.1 % [facility] % Monocytes 7.9 % [facility] % Eosinophils 7.1 % [facility] % Basophils 0.3 % [facility] % Immature 0.2 % [facility] Granulocytes [facility] Absolute 3.3 1.6 - 8.3 [facility] Neutrophil 10e9/L [facility] [place] [facility] Absolute 2.0 0.8 - 5.3 [facility] Lymphocytes 10e9/L [facility] Absolute 0.5 0.0 - 1.3 [facility] Monocytes 10e9/L [facility] Absolute 0.5 0.0 - 0.7 [facility] Eosinophils 10e9/L [facility] Absolute 0.0 0.0 - 0.2 [facility] Basophils 10e9/L [facility] LABS Abs Immature 0.0 0 - 0.4 [facility] Granulocytes 10e9/L [facility] LABS Specimen Anatomical Collection Method Collection Time Receive d Time (Source) Location / / Volume Laterality Blood specimen 02/02/2014 2:07 PM 02/02/ 014 2:08 (specimen) CDT PM CDT Caitlin Owens MD LAB - BLOOD ORDERABLES Performing Organization Address City/State/ZIP Code Phon e Number [facility] [address] LABS Creatinine urine calculation only (02/02/2014 2:00 PM CDT) P athologist Signature Creatinine 88 mg/dL [facility] Urine [place] LABS Specimen Anatomical Collection Method Collection Time Receive d Time (Source) Location / / Volume Laterality 02/02/2014 2:00 PM 4 2:12 CDT PM CDT Caitlin Owens MD LAB - URINE ORDERABLES Performing Organization Address City/[facility] Phon e Number [facility] [address] LABS (ABNORMAL) Urine culture (02/02/2014 2:00 PM CDT) Component Value Ref Test Analysis Performed At Patholo gist Range Method Time Signature Specimen [facility] Special Specimen received [facility] Requests in preservative MICROBIOLOGY Culture Micro <10,000 colonies/mL Gram pos itive cocci No further identification Susceptibility [facility] testing not routinely done [place] CROBIOLOGY <10,000 colonies/mL Strain 2 Gram positive cocci No further identification Susceptibility testing not routinely done (A) Micro Report FINAL 02/03/2014 [facility] Status MICROBIOLOGY Specimen Anatomical Collection Method Collection Time Receive d Time (Source) Location / / Volume Laterality Urine specimen URINE SPECIMEN 02/02/2014 2:00 PM 02/02 2:14 (specimen) OBTAINED BY CLEAN CDT PM CDT CATCH PROCEDURE / Unknown Caitlin Owens MD LAB - MICRO GENERAL ORDERABL ES Performing Organization Address City/[facility]/ZIP Code Phon e Number [address] LABS [facility] MICROBIOLOGY (ABNORMAL) Protein random urine (02/02/2014 2:00 PM CDT) [facility] Method Time Signature Protein Random 1.89 g/L [facility] Urine [facility] LABS Protein Total 2.15 (H) 0 - 0.2 [facility] Urine g/gr g/g Cr [facility] LABS Specimen Anatomical Collection Method Collection Time Receive d Time (Source) Location / / Volume Laterality Urine specimen URINE SPECIMEN 02/02/2014 2:00 PM 02/02 2:12 (specimen) OBTAINED BY CLEAN CDT PM CDT CATCH PROCEDURE / Unknown Caitlin Owens MD LAB - URINE ORDERABLES Performing Organization Address City/[facility] Phon e Number [address] LABS (ABNORMAL) Routine UA with microscopic (02/02/2014 2:00 PM CDT) [facility] Method Time Signature Color Urine Light Yellow [facility] LABS Appearance Urine Clear [facility] LABS Glucose Urine 70 (A) NEG mg/dL [facility] LABS Bilirubin Urine Negative NEG [facility] LABS Ketones Urine Negative NEG mg/dL [facility] LABS Specific [place] 1.008 1.003 - [facility] Urine 1.035 [facility] LABS Blood Urine Negative NEG [facility] LABS pH Urine 8.0 (H) 5.0 - 7.0 [facility] pH [facility] LABS Protein Albumin 100 (A) NEG mg/dL [facility] Urine [facility] LABS Urobilinogen Normal 0.0 - 2.0 [facility] mg/dL mg/dL [facility] LABS Nitrite Urine Negative NEG [facility] LABS Leukocyte Negative NEG [facility] Esterase Urine [facility] LABS Source Clean catch [facility] urine [facility] LABS WBC Urine 1 0 - 2 [...] Phon e Number [facility] [address] [place] [address] [facility] LABS (ABNORMAL) Glucose by meter [...] 12-lead, tracing only (02/02/2014 1:58 PM CDT) [facility] gist Method Time Signature Interpretation ECG Click View RADIOLOGY Image link RESULTS to view waveform and result Specimen (Source) Anatomical Collection Method Collection Time Re ceived Time Location / / Volume Laterality 02/02/2014 1:58 PM CDT Caitlin Owens MD ECG ORDERABLES Performing Organization Address City/[facility]/ZIP [facility] Phon e Number RADIOLOGY RESULTS documented in [...] dose, When verbally ordered by the prescriber. [place] throat with 1-4 sprays 5 minutes prior to procedure in the [facility] procedure room , Cardiac Intra-procedure clotrimazole (MYCELEX) lozenge 10 mg 1205 (Given - Pro vider: Ganesh Covarrubias RN)1335 (Given - Provider: Ganesh Covarrubias RN)1952 (Given - Provider: Annmarie Colby, BOGDAN) 0837 (Given - Provider: Lashaun Braswell, RN)1347 (Given - Provider: Lashaun Braswell, RN)2005 (Given [...] (COMPLETED) 1202 (Given - Provider: Lashaun Braswell, RN) 20 mg, Intravenous, ONCE, On Renetta 02/07/14 at 1100, For 1 dose insulin aspart (NovoLOG) injection (RAPID ACTING) (CAN CELED) 1206 (Given - Provider: Ganesh Covarrubias RN)1840 (Given - Provider: Lashaun Braswell, RN) 0844 (Given - Provider: Lashaun Braswell, RN)1343 (Given - Provider: Lashaun Braswell, RN)1924 (Given - Provider: Annmarie Colby, BOGDAN) [...] Colby RN) 2222 (Given - Provider: Annmarie Colby, BOGDAN) 1-5 Units, Subcutaneous, AT BEDTIME, Fir st [...] MORNING BEFORE BREAK FAST, First dose on 02/04/14 at 0730, DOSE: 1 units per CARBOHYDRATE [...] 134 5 (Given - Provider: Ganesh Covarrubias RN)1952 (Given - Provider: Annmarie Colby RN) 400 mg, Oral, 2 TIMES DAILY, First dose on Tue02/06/14 at 1145, For 2 doses metoprolol (LOPRESSOR) tablet 25 mg 1205 (Given - Prov ider: Ganesh Covarrubias RN)195 (Given - Provider: Annmarie Colby, RN) 0836 (Given - Provider: Lashaun Braswell [...] First dos e (after last modification) on Tue02/03/14 at 0945, [...] BOGDAN)1820 (Given - Provider: Lashaun Braswell, BOGDAN) 0130 [...] (Not Gi isael - Provider: Lynne Gatica [facility] - Reason: Other - Comment: [...] Annmarie Colby, RN)1212 (Given - Provider: Amanda Hernanedz, BOGDAN) 4 mg, Intravenous, EVERY 6 HOURS PRN, na usea, vomiting, Administer over 2-5 Minutes, Starting on Tue02/03/14 at 0055, Try prochlorperazine (COMPAZINE) first and if nausea is not resolved in 15-30 minutes, then administer ondansetron (ZOFRAN). oxyCODONE (ROXICODONE) immediate release tablet 5 mg 0 015 (Given - Provider: Farideh Hodgson RN)1345 (Given - Provider: Ganesh Covarrubias RN)1955 (Given - Provider: Annmarie Colby, BOGDAN) 5 mg, Oral, EVERY 4 HOURS PRN, moderate to severe pain, Starting on Tue02/05/14 at 0750 sodium chloride (PF) 0.9% PF flush 10-20 mL (CANCELED) 0100 (Given - Provider: Pallmargaret (Wollan) Hour) 0420 (Given - Provider: Angie Velazco MLT) 0643 (Given - Provider: Dee Fields) 10-20 mL, Intravenous, EVERY 1 HOUR PRN, line flush, post meds or blood draw, Starting on Tue02/03/14 at 0055, to flush CVC - Open Ended (Tunneled and Non- Tunneled). 10 mL post IV meds; 20 mL post blood draw. documented in this encounter Care Teams Furnace Combination Analyst Relationship Specialty Start Date End Date Momo Forbes PCP - General Family Practice 01/02/14 [facility] [address] [place] [address] Ingrid Santana, RN Registered Nurse Transplant 02/10/12 documented as of this encounter
--- OUTSIDE RECORDS SUMMARY | 2022-06-23 11:29 | XMS_ITS | Encounter Summary ---
:1950 Author Organization [place] Address [address] [place] [address] Care Team Providers Name Role Phone Ingrid Santana RN Unavailable Unavailable Momo Forbes Primary Care Provider Reason for Visit Reason Onset Date Comments Transplant 02/02/2014 Kidney Offer Encounter Details Date Type Department Care Team Description 02/02/2014 Telephone Transplant Surgery [facility] Rosario Tran splant (Kidney Clinic RN Offer) 2nd Floor, Clinic [address] [address] Social History Tobacco Use Types [...] on filedocumented in this encounter Care Teams Ammonia Refrigeration Worker Relationship Specialty Start Date End Date Momo Forbes PCP - General Family Practice 01/02/[address] [address] Ingrid Santana, RN Registered Nurse Transplant 02/10/12 documented as of this encounter
--- OUTSIDE RECORDS SUMMARY | 2022-06-23 11:29 | XMS_ITS | Encounter Summary ---
:1950 Author Organization [place] Address [address] [place] [address] Care Team Providers Name Role Phone Ingrid Santana RN Unavailable Unavailable Momo Forbes Primary Care Provider Reason for Visit Reason Onset Date Comments Pre Visit Planning - Done 01/30/2014 EKG: pre op: [age] yo M, here for continued clearance for possib le kidney txp. Encounter Details Date Type Department Care Team Description 01/30/2014 PRE VISIT [facility] Barbara Bradley Pre Visit Planning - Physicians Heart MD Monae Done (EKG: pre op: 63 [address] [place] M, [place] [address] continued clearance 4th Floor, Clinic 4B for possible kidney [facility] [address] txp.) [address] [place] [phone] Social History Tobacco Use Types Packs/Day Years [...] On HD since Aug 2011. No past GA, stress tests or coronary angiogorams. No chest [...] disease documented in this encounter Care Teams Fruit Cutter Relationship Specialty Start Date End Date Momo Forbes PCP - General Family Practice 01/02/14 [facility] [address] [place] [address] Ingrid Santana, RN Registered Nurse Transplant 02/10/12 documented as of this encounter
--- OUTSIDE RECORDS SUMMARY | 2022-06-23 11:30 | XMS_ITS | Encounter Summary ---
:1950 Author Organization [place] Address [address] [place] [address] Care Team Providers Name Role Phone Toña Jones MD Primary Care Provider Ingrid Santana RN Unavailable Unavailable Encounter Details Date Type Department Care Team Description 07/03/2012 Results Only LABORATORY RESULTS Barbara Bradley MD [address] [place], [place] [address] Social History Tobacco Use [...] in this encounter Results Virtual Crossmatch (07/03/2012) [facility] Method Time Signature Crossmatch Donor:ABRAHAM HICKEY ? Crossmatch Date:07/24/2012 HISTOTRAC Result (Note) Serum Date ??Test ?Result ? Donor Specific Antibody ?Comments 07/03/2012 ??Class I/Virtxm1 ? DSA ?None ? 07/03/2012 ??Class II/Virtxm 1 ?DSA ?None ? Specimen (Source) Anatomical Collection Method Collection Time Re ceived Time Location / / Volume Laterality 07/03/2012 07/05/2012 1:57 PM RAILROAD SURVEYOR Barbara Bradley MD LAB - IMMUNOLOGY ORDERABLES Performing Organization Address City/State/ZIP Code Phon e Number [facility] Immunology/Histocompatabil [place], [place] [address] [facility] [address], Room 3-580 HISTOTRAC documented in this encounter Visit Diagnoses Not on filedocumented in this encounter Care Teams Assistant Merchandise Manager Relationship Specialty Start Date End Date Toña Jones MD PCP - General Nephrology 11/25/11 01/01/14 Ingrid Santana RN Registered Nurse Transplant 02/10/12 documented as of this encounter
--- OUTSIDE RECORDS SUMMARY | 2022-06-23 11:30 | XMS_ITS | Encounter Summary ---
:1950 Author Organization [place] Address [address] [place] [address] Care Team Providers Name Role Phone Toña Jones MD Primary Care Provider Ingrid Santana RN Unavailable Unavailable Encounter Details Date Type Department Care Team Description 07/30/2013 Results Only LABORATORY RESULTS Mingo Dangelo MD [address] [facility] [address] [place] [address] (Wo rk) Social History Tobacco [...] HLA Lukasz Class I Single Antigen (07/30/2013) [facility] gist Method Time Signature SA1 Test [...] / Volume Laterality 07/30/2013 07/31/2013 2:10 PM DINING ROOM BUSSER Mingo Dangelo MD LAB - IMMUNOLOGY ORDERABLES Performing Organization Address City/State/ZIP Code Phon e Number [facility] Immunology/Histocompatabil [place], [place] [address] ity [facility] [address] Building, Room 3-580 HISTOTRAC documented in this encounter Visit Diagnoses Not on filedocumented in this encounter Care Teams Edge Trimmer Relationship Specialty Start Date End Date Toña Jones MD PCP - General Nephrology 11/25/11 01/01/14 Ingrid Santana, RN Registered Nurse Transplant 02/10/12 documented as of this encounter
--- OUTSIDE RECORDS SUMMARY | 2022-06-23 11:30 | XMS_ITS | Encounter Summary ---
:1950 Author Organization [place] Address [address] [place] [address] Care Team Providers Name Role Phone Toña Jones MD Primary Care Provider Ingrid Santana RN Unavailable Unavailable Reason for Visit (Routine) - Closed Specialty Diagnoses / Procedures Referred By Contact Refer red To Contact Radiology Diagnoses NM MPI SCAN Procedure Notes: UNSPECIFIED ESSENTIAL HYPERTENSION,PREOPERATIVE EXAMINATION, UNSPECIFIED, [facility] Procedures RADIOLOGY [address] [place] [address] Phone: Referral ID Status Reason Start Date Expiration Date Visits Requ ested Visits Authorized [id number] Closed 02/11/2012 02/10/2013 1 1 Encounter Details Date Type Department Care Team Description 02/15/2012 Hospital Encounter [facility] Barbara Bradley ESRD (end stage [facility] Imaging MD Monae renal disease) (H) [address] [facility] [address] [place] [address] Social History Tobacco Use [...] tablet by mouth 0 02/18/2014 daily. B wprpxav-T-ltozu acid Take 1 capsule by mouth 0 [...] disease documented in this encounter Care Teams Theatrical Variety Agent Relationship Specialty Start Date End Date Toña Jones MD PCP - General Nephrology 11/25/11 01/01/14 Ingrid Santana RN Registered Nurse Transplant 02/10/12 documented as of this encounter
--- OUTSIDE RECORDS SUMMARY | 2022-06-23 11:30 | XMS_ITS | Encounter Summary ---
:1950 Author Organization [place] Address [address] [place] [address] Care Team Providers Name Role Phone Toña Jones MD Primary Care Provider Ingrid Santana RN Unavailable Unavailable Encounter Details Date Type Department Care Team Description 10/11/2012 Results Only LABORATORY RESULTS Barbara Bradley MD [address] [place], [place] [address] Social History Tobacco Use [...] HLA Lukasz Class I Single Antigen (10/11/2012) [facility] gist Method Time Signature SA1 [...] / Volume Laterality 10/11/2012 10/12/2012 1:03 PM ADDICTION SOCIAL WORKER Barbara Bradley MD LAB - IMMUNOLOGY ORDERABLES Performing Organization Address City/State/ZIP Code Phon e Number [facility] Immunology/Histocompatabil [place], [place] [address] ity [facility] [address] [facility] [address] Building, Room 3-580 HISTOTRAC documented in this encounter Visit Diagnoses Not on filedocumented in this encounter Care Teams Semiautomatic Taper Operator Relationship Specialty Start Date End Date Toña Jones MD PCP - General Nephrology 11/25/11 01/01/14 Ingrid Santana, RN Registered Nurse Transplant 02/10/12 documented as of this encounter
--- OUTSIDE RECORDS SUMMARY | 2022-06-23 11:30 | XMS_ITS | Encounter Summary ---
:1950 Author Organization [place] Address [facility] [place] [place] [address] Care Team Providers Name Role Phone Toña [...] HLA Lukasz Class I Single Antigen (04/16/2013) [facility] gist Method Time Signature SA1 Test Single [...] Phon e Number [facility] Immunology/Histocompatabil [place], [place] [address] ity [facility] [address] Building, Room [address]-580 HISTOTRAC documented in this encounter Visit Diagnoses Not on filedocumented in this encounter Care Teams Moulder Operator Relationship Specialty Start Date End Date Toña Jones MD PCP - General Nephrology 11/25/11 01/01/14 Ingrid Santana, RN Registered Nurse Transplant 02/10/12 documented as of this encounter
--- OUTSIDE RECORDS SUMMARY | 2022-06-23 11:30 | XMS_ITS | Encounter Summary ---
:1950 Author Organization [place] Address [address] [place] [address] Care Team Providers Name Role Phone Toña Jones MD Primary Care Provider Ingrid Santana RN Unavailable Unavailable Encounter Details Date Type Department Care Team Description 02/28/2013 Orders Only [facility] Molly Sanderson Organ transplant [address] [facility] candidate (Primary Dx) [place] [address] Social History Tobacco Use Types Packs/Day Years Used Date Smoking Tobacco: Former Cigars Quit : 08/22/2006 Smokeless Tobacco: Never Alcohol Use Standard Drinks/Week Comments Yes 0 (1 standard drink = 0.6 oz pure alcoho l) occasional drink. Sex Assigned at Date Recorded Not on file documented as of this encounter Progress Notes Maria ESushilay - 02/28/2013 1:54 PM CDT Pharmacy Pre-Kidney [...] status documented in this encounter Care Teams Race Steward Relationship Specialty Start Date End Date Toña Jones MD PCP - General Nephrology 11/25/11 01/01/14 Ingrid Santana RN Registered Nurse Transplant 02/10/12 documented as of this encounter
--- OUTSIDE RECORDS SUMMARY | 2022-06-23 11:30 | XMS_ITS | Encounter Summary ---
:1950 Author Organization [place] Address [address] [place] [address] Care Team Providers Name Role Phone Toña Jones MD Primary Care Provider Ingrid Santana RN Unavailable Unavailable Encounter Details Date Type Department Care Team Description 07/30/2013 Results Only LABORATORY RESULTS Mingo Dangelo MD [address] [facility] [address] [place] [address] (Wo rk) Social History Tobacco [...] HLA Lukasz Class II Single Antigen (07/30/2013) [facility] gist Method Time [...] / Volume Laterality 07/30/2013 07/31/2013 2:10 PM LEAD INFORMATICA DEVELOPER Mingo Dangelo MD LAB - IMMUNOLOGY ORDERABLES Performing Organization Address City/State/ZIP Code Phon e Number [facility] Immunology/Histocompatabil [place], [place] [address] ity [facility] [address] [facility] [address] Building, Room 3-580 HISTOTRAC documented in this encounter Visit Diagnoses Not on filedocumented in this encounter Care Teams Equal Opportunity Specialist Relationship Specialty Start Date End Date Toña Jones MD PCP - General Nephrology 11/25/11 01/01/14 Ingrid Santana, RN Registered Nurse Transplant 02/10/12 documented as of this encounter
--- OUTSIDE RECORDS SUMMARY | 2022-06-23 11:30 | XMS_ITS | Encounter Summary ---
:1950 Author Organization [place] Address [address] [place] [address] Care Team Providers Name Role Phone Toña Jones MD Primary Care Provider Ingrid Santana RN Unavailable Unavailable Reason for Visit (Routine) - Closed Specialty Diagnoses / Procedures Referred By Contact Refer red To Contact Radiology Diagnoses NM MPI [place] Procedure Notes: UNSPECIFIED ESSENTIAL HYPERTENSION,PREOPERATIVE EXAMINATION, UNSPECIFIED, [facility] Procedures RADIOLOGY [address] [place] [address] Phone: Referral ID Status Reason Start Date Expiration Date Visits Requ ested Visits Authorized [id number] Closed 02/11/2012 02/10/2013 1 1 Encounter Details Date Type Department Care Team Description 02/15/2012 Hospital Encounter [facility] Barbara Bradley Imaging MD Monae [address] [facility] [address] [place], [place] [address] [phone] Social History Tobacco Use Types Packs/Day Years [...] tablet by mouth 0 02/18/2014 daily. B npsxacn-L-cdmzd acid Take 1 capsule by mouth 0 [...] on filedocumented in this encounter Care Teams Ambulatory Service Representative Relationship Specialty Start Date End Date Toña Jones MD PCP - General Nephrology 11/25/11 01/01/14 Ingrid Santana RN Registered Nurse Transplant 02/10/12 documented as of this encounter
--- OUTSIDE RECORDS SUMMARY | 2022-06-23 11:30 | XMS_ITS | Encounter Summary ---
:1950 Author Organization [place] Address [facility] [place] [address] Care Team Providers Name Role Phone Toña [...] DM (madeleine betes mellitus), type 2 (H) [address] [address] Social History Tobacco Use Types [...] uncontrolled documented in this encounter Care Teams Molder Labels Relationship Specialty Start Date End Date Toña Jones MD PCP - General Nephrology 11/25/11 01/01/14 Ingrid Santana, RN Registered Nurse Transplant 02/10/12 documented as of this encounter
--- OUTSIDE RECORDS SUMMARY | 2022-06-23 11:30 | XMS_ITS | Encounter Summary ---
:1950 Author Organization [place] Address [address] [place] [address] Care Team Providers Name Role Phone Toña Jones MD Primary Care Provider Ingrid Santana RN Unavailable Unavailable Encounter Details Date Type Department Care Team Description 01/17/2013 Results Only LABORATORY RESULTS Barbara Bradley MD [address] [place], [place] [address] Social History Tobacco Use [...] HLA Lukasz Class II Single Antigen (01/17/2013) [facility] gist Method Time Signature SA2 Test [...] Phon e Number [facility] HLA LABORATORY Immunology/Histocompatabil [place], [place] [address] ity [facility] [address] [facility] [address] Building, Room 3-580 HISTOTRAC documented in this encounter Visit Diagnoses Not on filedocumented in this encounter Care Teams City Attorney Relationship Specialty Start Date End Date Toña Jones MD PCP - General Nephrology 11/25/11 01/01/14 Ingrid Santana RN Registered Nurse Transplant 02/10/12 documented as of this encounter
--- OUTSIDE RECORDS SUMMARY | 2022-06-23 11:30 | XMS_ITS | Encounter Summary ---
:1950 Author Organization [place] Address [address] [place] [address] Care Team Providers Name Role Phone Ingrid Santana RN Unavailable Unavailable Momo Forbes Primary Care Provider Encounter Details Date Type Department Care Team Description 01/21/2014 Results Only LABORATORY RESULTS Mingo Dangelo MD [address] [facility] [address] [place] [address] (Wo rk) Social History Tobacco [...] HLA Lukasz Class I Single Antigen (01/21/2014) [facility] gist Method Time Signature SA1 [...] Phon e Number [facility] HLA LABORATORY Immunology/Histocompatabil [place], [place] [address] ity [facility] [address] [facility] [address] Building, Room 3-580 HISTOTRAC documented in this encounter Visit Diagnoses Not on filedocumented in this encounter Care Teams Structural Rigger Relationship Specialty Start Date End Date Momo Forbes PCP - General Family Practice 01/02/14 [facility] [address] [place], [place] [id number] Ingrid Santana, RN Registered Nurse Transplant 02/10/12 documented as of this encounter
--- OUTSIDE RECORDS SUMMARY | 2022-06-23 11:30 | XMS_ITS | Encounter Summary ---
:1950 Author Organization [place] Address [address] [place] [address] Care Team Providers Name Role Phone Toña Jones MD Primary Care Provider Ingrid Santana RN Unavailable Unavailable Reason for Visit (Routine) - Closed Specialty Diagnoses / Procedures Referred By Contact Refer red To Contact Cardiology Diagnoses NM STRESS [place] Procedure Notes: UNSPECIFIED ESSENTIAL HYPERTENSION,PREOPERATIVE EXAMINATION, UNSPECIFIED, Zz Uu Electrocard Procedures RADIOLOGY 500 [place] [address] Referral ID Status Reason Start Date Expiration Date Visits Requ ested Visits Authorized [id number] Closed 02/11/2012 02/10/2013 1 1 Encounter Details Date Type Department Care Team Description 02/15/2012 Hospital Encounter ZZ UU ELECTROCARD Barbara Bradley 500 [facility] [place] [place] [address] [address] [place], [place] [address] Social History Tobacco Use [...] tablet by mouth 0 02/18/2014 daily. B eixnmry-Y-wyjgq acid Take 1 capsule by mouth 0 [...] Test documented in this encounter Care Teams Delicatessen Clerk Relationship Specialty Start Date End Date Toña Jones MD PCP - General Nephrology 11/25/11 01/01/14 Ingrid Santana, RN Registered Nurse Transplant 02/10/12 documented as of this encounter
--- OUTSIDE RECORDS SUMMARY | 2022-06-23 11:30 | XMS_ITS | Encounter Summary ---
:1950 Author Organization [place] Address [address] [place] [address]. [place] [address] Care Team Providers Name Role Phone Toña Jones MD Primary Care Provider Ingrid Santana RN Unavailable Unavailable Momo Forbes Primary Care Provider Encounter Details Date Type Department Care Team Description 02/18/[address] [facility] r 2nd Floor, Clinic [address] [phone] Social History Tobacco Use [...] on filedocumented in this encounter Care Teams Precision Farming Specialist Relationship Specialty Start Date End Date Toña Jones MD PCP - General Nephrology 11/25/11 01/01/14 Momo Forbes PCP - General Family Practice 01/02/[address] [address] Ingrid Santana, RN Registered Nurse Transplant 02/10/12 documented as of this encounter
--- OUTSIDE RECORDS SUMMARY | 2022-06-23 11:30 | XMS_ITS | Encounter Summary ---
:1950 Author Organization [place] Address [facility] [place] [address] Care Team Providers Name Role Phone Toña [...] on filedocumented in this encounter Care Teams Cake Inspector Relationship Specialty Start Date End Date Toña Jones MD PCP - General Nephrology 11/25/11 01/01/14 Momo Forbes PCP - General Family Practice 01/02/[address] [place] [address] Ingrid Santana, RN Registered Nurse Transplant 02/10/12 documented as of this encounter
--- OUTSIDE RECORDS SUMMARY | 2022-06-23 11:30 | XMS_ITS | Encounter Summary ---
:1950 Author Organization [place] Address [address] [place] [address] Care Team Providers Name Role Phone Toañ Jones MD Primary Care Provider Ingrid Santana RN Unavailable Unavailable Encounter Details Date Type Department Care Team Description 11/05/2013 Results Only LABORATORY RESULTS Barbara Bradley MD [address] [place], [place] [address] Social History Tobacco Use [...] I Single Antigen (11/05/2013 7:20 AM CDT) [facility] gist Method Time Signature SA1 Test SA [...] Phon e Number [facility] HLA LABORATORY Immunology/Histocompatabil [place], [place] [address] ity [facility] Ctr [address], Room 3-580 HISTOTRAC documented in this encounter Visit Diagnoses Not on filedocumented in this encounter Care Teams Medical Receptionist Assistant Relationship Specialty Start Date End Date Toña Jones MD PCP - General Nephrology 11/25/11 01/01/14 Ingrid Santana, RN Registered Nurse Transplant 02/10/12 documented as of this encounter
--- OUTSIDE RECORDS SUMMARY | 2022-06-23 11:30 | XMS_ITS | Encounter Summary ---
:1950 Author Organization [place] Address [address] [place] [address] Care Team Providers Name Role Phone Toña Jones MD Primary Care Provider Ingrid Santana RN Unavailable Unavailable Encounter Details Date Type Department Care Team Description 01/17/2013 Results Only LABORATORY RESULTS Barbara Bradley MD [address] [place], [place] [address] Social History Tobacco Use [...] HLA Lukasz Class I Single Antigen (01/17/2013) [facility] gist Method Time Signature SA1 Test [...] Phon e Number [facility] HLA LABORATORY Immunology/Histocompatabil [place], [place] [address] ity [facility] C[facility] [address] [facility] [address] Building, Room 3-580 HISTOTRAC documented in this encounter Visit Diagnoses Not on filedocumented in this encounter Care Teams Customs Broker Relationship Specialty Start Date End Date Toña Jones MD PCP - General Nephrology 11/25/11 01/01/14 Ingrid Santana, RN Registered Nurse Transplant 02/10/12 documented as of this encounter
--- OUTSIDE RECORDS SUMMARY | 2022-06-23 11:30 | XMS_ITS | Encounter Summary ---
:1950 Author Organization [place] Address [facility] [place] [address] Care Team Providers Name Role Phone Toña [...] filedocumented in this encounter Care Teams Day Trader Relationship Specialty Start Date End Date Toña Jones MD PCP - General Nephrology 11/25/11 01/01/14 Momo Forbes PCP - General Family Practice 01/02/[address] [place] [address] Ingrid Santana, RN Registered Nurse Transplant 02/10/12 documented as of this encounter
--- OUTSIDE RECORDS SUMMARY | 2022-06-23 11:30 | XMS_ITS | Encounter Summary ---
:1950 Author Organization [place] Address [facility] [place] [address] Care Team Providers Name Role Phone Toña [...] - HIM SCAN - 09/25/2012 8:26 AM LOGGING TRACTOR OPERATOR ARCHIVE documented in this encounter Results LAB RESULT - HIM SCAN - ARCHIVE (09/25/2012 8:26 AM LOGGING TRACTOR OPERATOR) Specimen (Source) Anatomical Location Collection Method / Collectio n Time Received Time / Laterality Volume Narrative This result has an attachment that is no t available. Marcela Cordero MD LAB - BLOOD ORDERABLES documented in this encounter Visit Diagnoses Not on filedocumented in this encounter Care Teams Wringer Operator Relationship Specialty Start Date End Date Toña Jones MD PCP - General Nephrology 11/25/11 01/01/14 Momo Forbes PCP - General Family Practice 01/02/[address] [place] [address] Ingrid Santana, RN Registered Nurse Transplant 02/10/12 documented as of this encounter
--- OUTSIDE RECORDS SUMMARY | 2022-06-23 11:30 | XMS_ITS | Encounter Summary ---
:1950 Author Organization [place] Address [address] [facility] [place] [address] Care Team Providers Name Role Phone Toña [...] Ump Sot Surgery 2nd Floor, Clinic [address]A [address] [phone] Referral ID Status Reason Start Date Expiration Date Visits Requ ested Visits Authorized [id number] Closed 12/10/2013 06/08/2014 1 1 Consultation - Closed Specialty Diagnoses / Procedures Referred By Contact Refer red To Contact Diagnoses Organ transplant candidate ESRD (end stage renal disease) on dialysis (H) DM (diabetes mellitus), type 2 (H) Zz Ump Sot Surgery [facility] Floor, [facility] [address] [phone] Referral ID Status Reason Start Date Expiration Date Visits Requ ested Visits Authorized [id number] Closed 12/10/2013 06/08/2014 1 1 Encounter Details Date Type Department Care Team Description 12/07/2013 Orders Only Transplant Surgery Nazia March LPN Organ transplant candidate (Primary Dx); Clinic Screening for other and unsp ecified cardiovascular conditions; 2nd Floor, Clinic 2A ESRD (end stage renal diseas e) on dialysis (H); Tommy Wilburn DM (madeleine betes mellitus), type 2 (H) [address] [phone] Social History Tobacco Use Types [...] uncontrolled documented in this encounter Care Teams Electric Fork Operator Relationship Specialty Start Date End Date Toña Jones MD PCP - General Nephrology 11/25/11 01/01/14 Ingrid Santana, RN Registered Nurse Transplant 02/10/12 documented as of this encounter
--- OUTSIDE RECORDS SUMMARY | 2022-06-23 11:30 | XMS_ITS | Encounter Summary ---
:1950 Author Organization [place] Address [address] [place] [address] Care Team Providers Name Role Phone Ingrid Santana RN Unavailable Unavailable Momo Forbes Primary Care Provider Encounter Details Date Type Department Care Team Description 01/21/2014 Results Only LABORATORY RESULTS Mingo Dangelo MD [address] [facility] 195 [place] [address] (Wo rk) Social History Tobacco [...] Results HLA Flow T/B Crossmatch Allo (01/21/2014) [facility] gist Method Time Signature Crossmatch Donor:[id number], ?Crossmatch Date:02/02/2014 HISTOTRAC Result (Note) Serum Date [...] Phon e Number [facility] HLA LABORATORY Immunology/Histocompatabil [place], [place] [address] roger [facility] 500 [facility] [address] Building, Room 3-580 HISTOTRAC documented in this encounter Visit Diagnoses Not on filedocumented in this encounter Care Teams Wireless Sales Representative Relationship Specialty Start Date End Date Momo Forbes PCP - General Family Practice 01/02/14 [facility] [address] [place] [address] Ingrid Santana, RN Registered Nurse Transplant 02/10/12 documented as of this encounter
--- OUTSIDE RECORDS SUMMARY | 2022-06-23 11:30 | XMS_ITS | Encounter Summary ---
:1950 Author Organization [place] Address [address] [place] [address] Care Team Providers Name Role Phone Ingrid Santana RN Unavailable Unavailable Momo Forbes Primary Care Provider Encounter Details Date Type Department Care Team Description 01/20/2014 Orders Only [facility], [facility] jm [place] [address] [phone] [place] [address]42 [place] [address] (Wo rk) Social History [...] Results Tacrolimus level (02/15/2014 8:55 AM CDT) [facility] Method Time Signature Tacrolimus Last 02/14/2014 [facility] Dose 2030 [facility] Tacrolimus 5.9 5.0 - [facility] Level 15.0 ug/L [facility] Comment: Tacrolimus Reference Range [...] Phon e Number [facility] 500 [place], [place] [phone] [place] [address] LABS documented in this encounter Visit Diagnoses Not on filedocumented in this encounter Care Teams Agricultural Produce Washer Relationship Specialty Start Date End Date Momo Forbes PCP - General Family Practice 01/02/14 [facility] [address] [place] [address] Ingrid Santana, RN Registered Nurse Transplant 02/10/12 documented as of this encounter
--- OUTSIDE RECORDS SUMMARY | 2022-06-23 11:30 | XMS_ITS | Encounter Summary ---
:1950 Author Organization [place] Address [address] [place] [address] Care Team Providers Name Role Phone Toña Jones MD Primary Care Provider Ingrid Santana RN Unavailable Unavailable Encounter Details Date Type Department Care Team Description 11/05/2013 Results Only LABORATORY RESULTS Barbara Bradley MD [address] [place], [place] [address] Social History Tobacco Use [...] II Single Antigen (11/05/2013 7:20 AM CDT) [facility] gist Method Time Signature SA2 Test SA [...] Phon e Number [facility] HLA LABORATORY Immunology/Histocompatabil [place], [place] [address] ity ealth [facility] Ctr [address] Building, Room 3-580 HISTOTRAC documented in this encounter Visit Diagnoses Not on filedocumented in this encounter Care Teams Control Valve Mechanic Relationship Specialty Start Date End Date Toña Jones MD PCP - General Nephrology 11/25/11 01/01/14 Ingrid Santana RN Registered Nurse Transplant 02/10/12 documented as of this encounter
--- OUTSIDE RECORDS SUMMARY | 2022-06-23 11:30 | XMS_ITS | Encounter Summary ---
:1950 Author Organization [place] Address [facility] [place] [address] Care Team Providers Name Role Phone Toña [...] on filedocumented in this encounter Care Teams Clip Baker Relationship Specialty Start Date End Date Toña Jones MD PCP - General Nephrology 11/25/11 01/01/14 Momo Forbes PCP - General Family Practice 01/02/[address] [place] [address] Ingrid Santana, RN Registered Nurse Transplant 02/10/12 documented as of this encounter
--- OUTSIDE RECORDS SUMMARY | 2022-06-23 11:30 | XMS_ITS | Encounter Summary ---
:1950 Author Organization [place] Address [facility] [place] [address] Care Team Providers Name Role Phone Toña [...] on filedocumented in this encounter Care Teams Big Data Analytics Lead Relationship Specialty Start Date End Date Toña Jones MD PCP - General Nephrology 11/25/11 01/01/14 Momo Forbes PCP - General Family Practice 01/02/[address] [place] [address] Ingrid Santana, RN Registered Nurse Transplant 02/10/12 documented as of this encounter
--- OUTSIDE RECORDS SUMMARY | 2022-06-23 11:30 | XMS_ITS | Encounter Summary ---
:1950 Author Organization [place] Address [address] [place] [place] [address] Care Team Providers Name Role Phone Toña Jones MD Primary Care Provider Ingrid Santana RN Unavailable Unavailable Encounter Details Date Type Department Care Team Description 12/10/2013 Telephone Transplant Surgery C Nazia Bledsoe LPN 2nd Floor, Clinic 2A [place] [phone] Social History Tobacco Use Types Packs/Day [...] in this encounter Care Teams Central Office Installer Relationship Specialty Start Date End Date Toña Jones MD PCP - General Nephrology 11/25/11 01/01/14 Ingrid Santana, RN Registered Nurse Transplant 02/10/12 documented as of this encounter
--- OUTSIDE RECORDS SUMMARY | 2022-06-23 11:30 | XMS_ITS | Encounter Summary ---
:1950 Author Organization [place] Address [address] [place] [address] Care Team Providers Name Role Phone Ingrid Santana RN Unavailable Unavailable Momo Forbes Primary Care Provider Encounter Details Date Type Department Care Team Description 01/21/2014 Results Only LABORATORY RESULTS Mingo Dangelo MD [address] [facility] 195 [place] [address] (Wo rk) Social History Tobacco [...] HLA Lukasz Class II Single Antigen (01/21/2014) [facility] gist Method Time Signature SA2 Test [...] Phon e Number [facility] HLA LABORATORY Immunology/Histocompatabil [place], [place] [address] ity [facility] [address] Building, Room 3-580 HISTOTRAC documented in this encounter Visit Diagnoses Not on filedocumented in this encounter Care Teams Exterminator Relationship Specialty Start Date End Date Momo Forbes PCP - General Family Practice 01/02/14 [facility] 1999 [place] [address] Ingrid Santana, RN Registered Nurse Transplant 02/10/12 documented as of this encounter
--- OUTSIDE RECORDS SUMMARY | 2022-06-23 11:30 | XMS_ITS | Encounter Summary ---
:1950 Author Organization [place] Address [facility] [place] [address] Care Team Providers Name Role Phone Toña [...] HLA Lukasz Class II Single Antigen (04/16/2013) [facility] gist Method Time Signature SA2 Test [...] Phon e Number [facility] HLA LABORATORY Immunology/Histocompatabil [place], [place] [address] ity [facility] C[facility] [address] Building, Room 3-580 HISTOTRAC documented in this encounter Visit Diagnoses Not on filedocumented in this encounter Care Teams Bulk Pigment Reducer Relationship Specialty Start Date End Date Toña Jones MD PCP - General Nephrology 11/25/11 01/01/14 Ingrid Santana, RN Registered Nurse Transplant 02/10/12 documented as of this encounter
--- OUTSIDE RECORDS SUMMARY | 2022-06-23 11:30 | XMS_ITS | Encounter Summary ---
:1950 Author Organization [place] Address [address] [place] [address] Care Team Providers Name Role Phone Toña Jones MD Primary Care Provider Ingrid Santana RN Unavailable Unavailable Encounter Details Date Type Department Care Team Description 07/03/2012 Results Only LABORATORY RESULTS Barbara Bradley MD [address] [place], [place] [address] Social History Tobacco Use [...] HLA Lukasz Class II Single Antigen (07/03/2012) [facility] gist Method Time Signature SA2 Test [...] / Volume Laterality 07/03/2012 07/05/2012 1:57 PM PICTURE FRAMES INSPECTOR [place] Suseekar Bradley MD LAB - IMMUNOLOGY ORDERABLES Performing Organization Address City/State/ZIP Code Phon e Number UU HLA LABORATORY Immunology/Histocompatabil [place], [place] [address] ity [facility] C[facility] 500 [facility] [address] Building, Room 3-580 HISTOTRAC documented in this encounter Visit Diagnoses Not on filedocumented in this encounter Care Teams Digital Learning Platforms Manager Relationship Specialty Start Date End Date Toña Jones MD PCP - General Nephrology 11/25/11 01/01/14 Ingrid Santana, RN Registered Nurse Transplant 02/10/12 documented as of this encounter
--- OUTSIDE RECORDS SUMMARY | 2022-06-23 11:30 | XMS_ITS | Encounter Summary ---
:1950 Author Organization [place] Address [address] [place] [address] Care Team Providers Name Role Phone Toña Jones MD Primary Care Provider Ingrid Santana RN Unavailable Unavailable Encounter Details Date Type Department Care Team Description 04/13/2012 Results Only LABORATORY RESULTS Mingo Dangelo MD [address] [place] [address] [facility] 195 [place] [address] (Wo rk) Social History Tobacco [...] HLA Lukasz Class II Single Antigen (04/13/2012) [facility] gist Method Time Signature SA2 Test [...] e Number [facility] HLA LABORATORY Immunology/Histocompatabil [place], [place] [address] ity [facility] C[facility] [address] Building, Room 3-580 HISTOTRAC documented in this encounter Visit Diagnoses Not on filedocumented in this encounter Care Teams Tribunal Member Relationship Specialty Start Date End Date Toña Jones MD PCP - General Nephrology 11/25/11 01/01/14 Ingrid Santana, RN Registered Nurse Transplant 02/10/12 documented as of this encounter
--- OUTSIDE RECORDS SUMMARY | 2022-06-23 11:30 | XMS_ITS | Encounter Summary ---
:1950 Author Organization [place] Address [address] [place] [address] Care Team Providers Name Role Phone Toña Jones MD Primary Care Provider Ingrid Santana RN Unavailable Unavailable Encounter Details Date Type Department Care Team Description 08/25/2012 Results Only LABORATORY RESULTS Barbara Bradley MD [address] [place], [place] [address] Social History Tobacco Use [...] AM Results f or this CROSSMATCH ALLO BITUMINOUS PAVING MACHINE OPERATOR procedure ar e in the results section. documented in this encounter Results HLA Flow T/B Crossmatch Allo (08/25/2012 9:49 AM BITUMINOUS PAVING MACHINE OPERATOR) [facility] Method Time Signature Crossmatch Donor:[id number] [...] Volume Laterality 08/25/2012 9:49 AM 3 9:06 BITUMINOUS PAVING MACHINE OPERATOR AM BITUMINOUS PAVING MACHINE OPERATOR Barbara Bradley MD LAB - IMMUNOLOGY ORDERABLES Performing Organization Address City/State/ZIP Code Phon e Number [facility] HLA LABORATORY Immunology/Histocompatabil [place], [place] [address] roger [facility] C[facility] [address] Building, Room 3-580 HISTOTRAC documented in this encounter Visit Diagnoses Not on filedocumented in this encounter Care Teams Child Protection Specialist Relationship Specialty Start Date End Date Toña Jones MD PCP - General Nephrology 11/25/11 01/01/14 Ingrid Santana RN Registered Nurse Transplant 02/10/12 documented as of this encounter
--- OUTSIDE RECORDS SUMMARY | 2022-06-23 11:30 | XMS_ITS | Encounter Summary ---
:1950 Author Organization [place] Address [address] [place] [address] Care Team Providers Name Role Phone Toña Jones MD Primary Care Provider Ingrid Santana RN Unavailable Unavailable Encounter Details Date Type Department Care Team Description 10/11/2012 Results Only LABORATORY RESULTS Barbara Bradley MD [address] [place], [place] [address] Social History Tobacco Use [...] HLA Lukasz Class II Single Antigen (10/11/2012) [facility] [...] / Volume Laterality 10/11/2012 10/12/2012 1:03 PM AD TRAFFICKER [place] Suseekar Bradley MD LAB - IMMUNOLOGY ORDERABLES Performing Organization Address City/State/ZIP Code Phon e Number [facility] LABORATORY Immunology/Histocompatabil [place], [place] [address] ity [facility] Ctr 500 [facility] [address] Building, Room 3-580 HISTOTRAC documented in this encounter Visit Diagnoses Not on filedocumented in this encounter Care Teams Part Maker Relationship Specialty Start Date End Date Toña Jones MD PCP - General Nephrology 11/25/11 01/01/14 Ingrid Santana, RN Registered Nurse Transplant 02/10/12 documented as of this encounter
--- OUTSIDE RECORDS SUMMARY | 2022-06-23 11:30 | XMS_ITS | Encounter Summary ---
:1950 Author Organization [place] Address [address] [place] [address] Care Team Providers Name Role Phone Toña Jones MD Primary Care Provider Ingrid Santana RN Unavailable Unavailable Encounter Details Date Type Department Care Team Description 07/03/2012 Results Only LABORATORY RESULTS Barbara Bradley MD [address] [place], [place] [address] Social History Tobacco Use [...] HLA Lukasz Class I Single Antigen (07/03/2012) [facility] gist Method Time Signature SA1 [...] / Volume Laterality 07/03/2012 07/05/2012 1:57 PM BUSINESS SUPPORT ASSISTANT Barbara Bradley MD LAB - IMMUNOLOGY ORDERABLES Performing Organization Address City/State/ZIP Code Phon e Number [facility] Immunology/Histocompatabil [place], [place] [address] ity [facility] [address] [facility] [address], Room 3-580 HISTOTRAC documented in this encounter Visit Diagnoses Not on filedocumented in this encounter Care Teams Government Services Professional Relationship Specialty Start Date End Date Toña Jones MD PCP - General Nephrology 11/25/11 01/01/14 Ingrid Santana, RN Registered Nurse Transplant 02/10/12 documented as of this encounter
--- OUTSIDE RECORDS SUMMARY | 2022-06-23 11:30 | XMS_ITS | Encounter Summary ---
:1950 Author Organization [place] Address [address] [place] [address] Care Team Providers Name Role Phone Toña Jones MD Primary Care Provider Ingrid Santana RN Unavailable Unavailable Encounter Details Date Type Department Care Team Description 04/13/2012 Results Only LABORATORY RESULTS Mingo Dangelo MD [address] [facility] [address] [place] [address] (Wo rk) Social History Tobacco [...] HLA Lukasz Class I Single Antigen (04/13/2012) [facility] gist Method Time Signature SA1 [...] Phon e Number [facility] Immunology/Histocompatabil [place], [place] [address] ity [facility] [address], Room 3-580 HISTOTRAC documented in this encounter Visit Diagnoses Not on filedocumented in this encounter Care Teams Setter Juice Packaging Machines Relationship Specialty Start Date End Date Toña Jones MD PCP - General Nephrology 11/25/11 01/01/14 Ingrid Santana, RN Registered Nurse Transplant 02/10/12 documented as of this encounter
--- OUTSIDE RECORDS SUMMARY | 2022-06-23 11:30 | XMS_ITS | Encounter Summary ---
:1950 Author Organization [place] Address [facility] [place] [address] Care Team Providers Name Role Phone Toña [...] in this encounter Care Teams Public Health Aide Relationship Specialty Start Date End Date Toña Jones MD PCP - General Nephrology 11/25/11 01/01/14 Momo Forbes PCP - General Family Practice 01/02/[address] [place] [address] Ingrid Santana, RN Registered Nurse Transplant 02/10/12 documented as of this encounter
--- OUTSIDE RECORDS SUMMARY | 2022-06-23 11:30 | XMS_ITS | Encounter Summary ---
:1950 Author Organization [place] Address Counts include 234 beds at the [facility]0 [facility] [place] [address] Care Team Providers Name Role Phone Toña [...] Associated Diagnosis Comme nts PATHOLOGY RESULT - [facility] 03/17/2012 8:24 AM CDT SCAN - ARCHIVE documented in this encounter Results PATHOLOGY RESULT - [facility] SCAN - ARCHIVE (03/17/2012 8:24 AM CDT) Specimen (Source) Anatomical Location Collection Method / Collectio n Time Received Time / Laterality Volume Narrative This result has an attachment that is no t available. Gich Provider LAB - [facility] SPECIAL DIAG OR DERABLES documented in this encounter Visit Diagnoses Not on filedocumented in this encounter Care Teams Keno Terminal Operator Relationship Specialty Start Date End Date Toña Jones MD PCP - General Nephrology 11/25/11 01/01/14 Momo Forbes PCP - General Family Practice 01/02/14 [facility] [address] [place] [address] Ingrid Santana, RN Registered Nurse Transplant 02/10/12 documented as of this encounter
--- OUTSIDE RECORDS SUMMARY | 2022-06-23 11:30 | XMS_ITS | Encounter Summary ---
:1950 Author Organization [place] Address [facility] [place] [address] Care Team Providers Name Role Phone Toña Jones MD Primary Care Provider Ingrid Santana RN Unavailable Unavailable Reason for Visit Reason Onset Date Comments Transplant 12/19/2013 Kidney waitlist appo intments Encounter Details Date Type Department Care Team Description 12/19/2013 Telephone The Transplant [facility] low Abstract, Provider Transplant (Kidney 2nd Floor, Clinic 2A waitlist appointments) [address] [phone] Social History Tobacco Use Types Packs/Day Years [...] on filedocumented in this encounter Care Teams Sock Boarder Relationship Specialty Start Date End Date Toña Jones MD PCP - General Nephrology 11/25/11 01/01/14 Siers, Ingrid A, RN Registered Nurse Transplant 02/10/12 documented as of this encounter
--- OUTSIDE RECORDS SUMMARY | 2022-06-23 11:31 | XMS_ITS | Encounter Summary ---
:1950 Author Organization [place] Address [address] [place] [address] Care Team Providers Name Role Phone Toña Jones MD Primary Care Provider Reason for Visit (Routine) - Closed Specialty Diagnoses / Procedures Referred By Contact Refer red To Contact Cardiology Diagnoses ECHO CLINIC COMPLETE ADULT Procedure Notes: DIABETES MELLITUS, TYPE 2,END STAGE RENAL DISEASE,Transplant eval,Performing Location?->[facility] Echocardiography Procedures RADIOLOGY [address] [place] [address] Phone: Referral ID Status Reason Start Date Expiration Date Visits Requ ested Visits Authorized [id number] Closed 01/21/2012 01/20/2013 1 1 Encounter Details Date Type Department Care Team Description 02/08/2012 [facility] Hass an, [facility] [address] [facility] [address] [place] [address] Diabetes mellitus, type 2 (H); Echocardiography Rajat German MD [address] [facility] [address] [facility] [address] [place] [address] End stage renal disease (H) [address] [place] [address] Social History Tobacco Use Types [...] tablet by mouth 0 02/18/2014 daily. B bevfetw-F-bwkim acid Take 1 capsule by mouth 0 [...] / Volume Laterality 02/08/2012 1:13 PM CDT Chuhco Joshi MD CV ECHO ORDERABLES documented in this encounter Visit Diagnoses Diagnosis Diabetes mellitus, type 2 (H) Type II or unspecified type diabetes aung litus without mention of complication, not stated as uncontrolled End stage renal disease (H) End stage renal disease documented in this encounter Care Teams Control Operator Relationship Specialty Start Date End Date Toña Jones MD PCP - General Nephrology 11/25/11 01/01/14 documented as of this encounter
--- OUTSIDE RECORDS SUMMARY | 2022-06-23 11:31 | XMS_ITS | Encounter Summary ---
:1950 Author Organization [place] Address [address] [place] [address]. [place] [address] Care Team Providers Name Role Phone Toña Jones MD Primary Care Provider Ingrid Santana RN Unavailable Unavailable Momo Forbes Primary Care Provider Encounter Details Date Type Department Care Team Description 01/20/2012 Historic Results [facility] Provider, MD Marcela Social History Tobacco Use Types Packs/Day Years Used Date Smoking Tobacco: Never Assessed Sex Assigned at Date Recorded [...] filedocumented in this encounter Care Teams Optical Manufacturing Technician Relationship Specialty Start Date End Date Toña Jones MD PCP - General Nephrology 11/25/11 01/01/14 Momo Forbes PCP - General Family Practice 01/02/[address] [address] Siers, Ingrid A, RN Registered Nurse Transplant 02/10/12 documented as of this encounter
--- OUTSIDE RECORDS SUMMARY | 2022-06-23 11:31 | XMS_ITS | Encounter Summary ---
:1950 Author Organization [place] Address [address] [facility] [place] [address] Care Team Providers Name Role Phone Toña Jones MD Primary Care Provider Ingrid Santana RN Unavailable Unavailable Reason for Visit Reason Comments Transplant Evaluation kidney Encounter Details Date Type Department Care Team Description 02/10/2012 Office Visit Nephrology Darian Joshi MD [address] [facility] [address] [place], [place] [phone] Pre-transplant 2nd Floor, Clinic 2A Joseph Quintana MD [address] [facility] [address] [facility] [address] [place], [place] [address] evaluation for Sanders Mimaalyssa chronic kidney Building disease (Primary Dx) [address] [place] [phone] Social History Tobacco Use Types Packs/Day Years [...] Type: Incenter HD; and Dialysis unit: [facility] Primary Collection Systems Technician: Dr. 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 Yes Reported, Patient B ydiifxb-H-zxkuo acid (NEPHROCAPS) 1 MG capsule Take 1 [...] NEG Ketones Urine Negative NEG (mg/dL) Specific [place] Urine 1.010 1.003 - 1.035 Blood Urine [...] Report Value: Patient Name: ELINOR GUTHRIE MR#: [id number] Specimen #: [id number] Collected: 02/08/2012 07:07 Received: 02/08/2012 09:00 Reported: 02/11/2012 14:03 Ordering Phy(s): DARIAN JOSHI TEST(S) REQUESTED: A: Factor 5 Leiden and Factor 2 by PCR B: DNA Isolation, High purity extraction SPECIMEN DESCRIPTION: Blood METHODOLOGY: The regions of genomic DNA containing the [id number] Factor 5 gene mutation (Factor V Leiden) and the Factor 2(Prothrombin E01435C) gene mutation were simultaneously amplified using the polymerase chain reaction. The amplified products were digested with restriction endonuclease TaqI and products were analyzed by gel electrophoresis. RESULTS: FACTOR 5-LEIDEN RESULTS: Mutation analyzed: 1691G>A Factor 5 Mutation Interpretation: ABSENT Factor 5 Mutation genotype: G/G FACTOR 2/PROTHROMBIN RESULTS: Mutation analyzed: 44775T>A Factor 2 Mutation Interpretation: ABSENT Factor 2 Mutation genotype: G/G INTERPRETATION: The patient is negative for the Factor 5 mutation and negative for the Factor 2 mutation. This test was developed and its performance determined by the [facility]. It [...] Liliya Stone MD TESTING LAB LOCATION: [address] [address] COLLECTION SITE: Client: [facility] Location: [facility] () HLA LUKASZ CLASS I SINGLE ANTIGEN Collection [...] of an antiphospholipid syndrome, recommend anticardiolipin and zzkq-3-svjkwrwtpjlb (IgG and IgM) antibody tests. Dee Duenas M.D. [phone] 02-09-2012. APTT'S: Seconds Reagent = Stago LS [...] Range Ventricular Rate 60 Atrial Rate 60 CO Interval 186 QRS Duration 104 QT 440 QTc 440 P [place] 36 R AXIS 0 T [place] 36 Interpretation ECG Sinus rhythm Interpretation ECG [...] Function Test Value: Name: ELINOR GUTHRIE ID: [id number] Doctor: DONYA THOMAS Height: 72.00 in Age: 61 Aki Katrina Cortez Weight: 273.40 lbs Sex: Male Date: 02/08/2012 [...] INTERPRETATION: The FVC, FEV1, FEV1/FVC ratio and HVT02-15% are within normal limits. The inspiratory flow [...] 02/10/2012 10:00 AM CDT >> AUSTEN FAUSTIN [facility] Feb 10, 2012 9:54 AM Took vitals, cc, reviewed meds and allergies documented in this encounter Plan of Treatment Not on filedocumented as of this encounter Visit Diagnoses Diagnosis Pre-transplant evaluation for chronic ki dney disease - Primary Other specified pre-operative examinatio n documented in this encounter Care Teams Transfer Station Operator Relationship Specialty Start Date End Date Toña Jones MD PCP - General Nephrology 11/25/11 01/01/14 Ingrid Santana, RN Registered Nurse Transplant 02/10/12 documented as of this encounter
--- OUTSIDE RECORDS SUMMARY | 2022-06-23 11:31 | XMS_ITS | Encounter Summary ---
:1950 Author Organization [place] Address [address] [place] [address] Care Team Providers Name Role Phone Toña Jones MD Primary Care Provider Ingrid Santana RN Unavailable Unavailable Encounter Details Date Type Department Care Team Description 02/08/2012 Results Only LABORATORY RESULTS Jeff Joshi MD [address] [place] [address] [place] [address] (Wo rk) Social History Tobacco [...] I Single Antigen (02/08/2012 7:07 AM CDT) [facility] gist Method Time Signature SA1 [...] Phon e Number [facility] Immunology/Histocompatabil [place], [place] [address] [facility] [address], Room 3-580 HISTOTRAC documented in this encounter Visit Diagnoses Not on filedocumented in this encounter Care Teams Aerospace Project Manager Relationship Specialty Start Date End Date Toña Jones MD PCP - General Nephrology 11/25/11 01/01/14 Ingrid Santana, RN Registered Nurse Transplant 02/10/12 documented as of this encounter
--- OUTSIDE RECORDS SUMMARY | 2022-06-23 11:31 | XMS_ITS | Encounter Summary ---
:1950 Author Organization [place] Address [address] 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 ??The [...] BLOOD ORDERABLES Performing Organization Address City/[facility] Phon e Number [address] LABS Antibody titer red cell (02/08/2012 7:26 AM CDT) [facility] Method [place] Signature Antibody Titer Anti B [facility] titer IgM: [place] 4 Ig [place] [facility] Specimen Anatomical Collection Method Collection Time Receive d Time (Source) Location / / Volume Laterality Blood specimen 02/08/2012 7:26 AM 012 7:31 (specimen) CDT AM CDT Darian Joshi MD LAB - BLOOD BANK TEST ORDER Performing Organization Address [facility] Phon e Number [address] LABS Prostate spec antigen screen (02/08/2012 7:25 AM CDT) athologist Signature PSA 0.44 0 - 4 ug/L [facility] LABS Comment: PSA results are about 7% [...] Phon e Number [facility] [address] LABS Hemoglobin A1c (02/08/2012 7:25 AM CDT) athologist Signature Hemoglobin A1C 5.3 4.3 - 6.0 [facility] LABS Specimen Anatomical Collection Method Collection Time Receive d Time (Source) Location / / Volume Laterality Blood specimen 02/08/2012 7:25 AM 012 7:30 (specimen) CDT AM CDT Darian Joshi MD LAB - BLOOD ORDERABLES Performing Organization Address City/State/ZIP Code Phon e Number [facility] [address] LABS C-peptide (02/08/2012 7:25 AM CDT) athologist Signature C Peptide 5.3 0.9 - 6.9 [facility] ng/mL [place] [facility] Specimen Anatomical Collection Method Collection Time Receive d Time (Source) Location / / Volume Laterality Blood specimen 02/08/2012 7:25 AM 012 7:30 (specimen) CDT AM CDT Darian Joshi MD LAB - BLOOD ORDERABLES Performing Organization Address City/[facility]/ZIP Code Phon e Number [address] LABS Cardiolipin antibody IgG and IgM (02/08/2012 7:25 AM CDT) [facility] gist Method Time Signature Cardiolipin IgG <15.0 0 - 15.0 [facility] Shaye Interpretation: ??Negative GPL [facility] Cardiolipin IgM <12.5 0 - 12.5 [facility] Shaye Interpretation: ??Negative MPL [facility] Specimen Anatomical Collection Method Collection Time Receive d Time (Source) Location / / Volume Laterality Blood specimen 02/08/2012 7:25 AM 012 7:30 (specimen) CDT AM CDT Darian Joshi MD LAB - BLOOD ORDERABLES Performing Organization Address City/State/ZIP Code Phon e Number [facility] [address] [place] [address] [place] [facility] (ABNORMAL) Comprehensive metabolic panel (02/08/2012 7:25 AM CDT) [facility] gist Method Time Signature Sodium 143 133 - 144 [facility] mmol/L [facility] Potassium 4.4 3.4 - 5.3 [facility] mmol/L [facility] Chloride 106 94 - 109 [facility] mmol/L [facility] Carbon Dioxide 24 20 - 32 [facility] mmol/L [facility] Anion Gap 13 6 - 17 [facility] mmol/L [facility] Glucose 126 (H) 60 - 99 [facility] mg/dL [facility] Urea Nitrogen 32 (H) 7 - 30 [facility] mg/dL [facility] Creatinine 5.46 (H) 0.66 - [facility] 1.25 [facility] mg/dL CAMPUS LABS GFR Estimate 11 (L) >60 [facility] mL/min/1. [address] LABS GFR Estimate If 13 (L) >60 [facility] Black mL/min/1. [address] LABS Calcium 8.5 8.5 - [facility] 10.4 UNIVERSITY mg/dL CAMPUS LABS Bilirubin Total 0.8 0.2 - 1.3 [facility] mg/dL [facility] Albumin 3.8 3.3 - 4.9 [facility] g/dL [facility] Protein Total 6.8 6.8 - 8.8 [facility] g/dL [facility] Alkaline 92 40 - 150 [facility] Phosphatase U/L [facility]S ALT 13 0 - 70 [facility] U/L [facility] AST 18 0 - 45 [facility] U/L [facility] Specimen Anatomical Collection Method Collection Time Receive d Time (Source) Location / / Volume Laterality Blood specimen 02/08/2012 7:25 AM 012 7:30 (specimen) CDT AM CDT Darian Joshi MD LAB - BLOOD ORDERABLES Performing Organization Address City/[facility]/ZIP Code Phon e Number [facility] [address] [place] [address] [facility] LABS Lipid Profile (02/08/2012 7:25 AM CDT) P athologist Signature Cholesterol 134 0 - 200 [facility] mg/dL CAMPUS LABS Comment: LDL Cholesterol is the primary guide to therapy. The NCEP recommends further evaluation of: patients with cholesterol greater than 200 mg/dL if additional risk facto rs are present, cholesterol greater than 240 mg/dL, triglycerides greater than 1 50 mg/dL, or HDL less than 40 mg/dL. Triglycerides 74 0 - 150 mg/dL [facility] LABS HDL Cholesterol 42 40 - 110 mg/dL [facility] LABS LDL Cholesterol Calculated 77 0 - 129 mg/dL [facility] LABS Comment: LDL Cholesterol is the primary guide to therapy: LDL-cholesterol goal in high risk patients is <100 mg/dL and in very high risk patients is <70 mg/dL. VLDL-Cholesterol 15 0 - 30 mg/dL [facility] LABS Cholesterol/HDL Ratio 3.2 0.0 - 5.0 [facility] Specimen Anatomical Collection Method Collection Time Receive d Time (Source) Location / / Volume Laterality Blood specimen 02/08/2012 7:25 AM 012 7:30 (specimen) CDT AM CDT Darian Joshi MD LAB - BLOOD ORDERABLES Performing Organization Address City/[facility]/ZIP Code Phon e Number [facility] [address] [place] [address] [facility] LABS ABO/Rh type and screen (02/08/2012 7:25 AM CDT) Patholo gist Method Time Signature ABO A [facility] RH(D) Pos [facility] Antibody Neg [facility] Screen [facility] Specimen 02/11/2012 [facility] Expires [facility] Specimen Anatomical Collection Method Collection Time Receive d Time (Source) Location / / Volume Laterality Blood specimen 02/08/2012 7:25 AM 012 7:30 (specimen) CDT AM CDT Darian Joshi MD LAB - BLOOD BANK TEST ORDER Performing Organization Address City/State/ZIP Code Phon e Number [facility] [address] [place] [address] [facility]S Varicella zoster antibody IgG (02/08/2012 7:25 AM CDT) Patholo gist Method Time Signature Varicella 1023.00 [facility] Zoster IgG [place] Immune Status CAMPUS LABS Ratio Vari Zoster Positive, [facility] IgG Interp suggests [place] prev. CAMPUS LABS exposure and probable immunity Specimen Anatomical Collection Method Collection Time Receive d Time (Source) Location / / Volume Laterality Blood specimen 02/08/2012 7:25 AM 012 7:30 (specimen) CDT AM CDT Darian Joshi MD LAB - BLOOD ORDERABLES Performing Organization Address City/State/ZIP Code Phon e Number [facility] [address] [place], [place] [id number] [place] [address] LABS Anti treponema EIA (02/08/2012 7:25 AM CDT) Analysis Performed At Patho logist Time Signature Treponema Negative NEG [facility] Antibody [place] [facility] Specimen Anatomical Collection Method Collection Time Receive d Time (Source) Location / / Volume Laterality Blood specimen 02/08/2012 7:25 AM 012 7:30 (specimen) CDT AM CDT Darian Joshi MD LAB - BLOOD ORDERABLES Performing Organization Address City/State/ZIP Code Phon e Number [facility] [address] [place], [place] [id number] [place] [address] LABS HIV 1 and 2 Antibody (02/08/2012 7:25 AM CDT) Analysis Performed At Patho logist Time Signature HIV 1&[address] [facility] Antibody [facility] Specimen Anatomical Collection Method Collection Time Receive d Time (Source) Location / / Volume Laterality Blood specimen 02/08/2012 7:25 AM 012 7:30 (specimen) CDT AM CDT Darian Joshi MD LAB - BLOOD ORDERABLES Performing Organization Address City/State/ZIP Code Phon e Number [facility] [address] [place], [place] [id number] [place] [address] LABS Hepatitis C antibody (02/08/2012 7:25 AM CDT) Analysis Performed At Patho logist Time Signature Hepatitis C Negative NEG [facility] Antibody [facility] Specimen Anatomical Collection Method Collection Time Receive d Time (Source) Location / / Volume Laterality Blood specimen 02/08/2012 7:25 AM 012 7:30 (specimen) CDT AM CDT Darian Joshi MD LAB - BLOOD ORDERABLES Performing Organization Address City/[facility]/ZIP Code Phon e Number [address] LABS Hepatitis B surface antigen (02/08/2012 7:25 AM CDT) Analysis Performed At Patho logist Time Signature Hep B Surface Negative NEG [facility] Agn [facility] Specimen Anatomical Collection Method Collection Time Receive d Time (Source) Location / / Volume Laterality Blood specimen 02/08/2012 7:25 AM 012 7:30 (specimen) CDT AM CDT Darian Joshi MD LAB - BLOOD ORDERABLES Performing Organization Address City/[facility]/ZIP Code Phon e Number [address] LABS Hepatitis B surface antibody (02/08/2012 7:25 AM CDT) P athologist Signature Hep B Surface 135.0 [facility] LABS Comment: Positive, Patient is considered [...] City/[facility]/ZIP Code Phon e Number [address] LABS Hepatitis B core antibody (02/08/2012 7:25 AM CDT) Analysis Performed At Patho logist Time Signature Hepatitis B Negative NEG [facility] LABS Specimen Anatomical Collection Method Collection Time Receive d Time (Source) Location / / Volume Laterality Blood specimen 02/08/2012 7:25 AM 012 7:30 (specimen) CDT AM CDT Darian Joshi MD LAB - BLOOD ORDERABLES Performing Organization Address City/[facility]/ZIP Code Phon e Number [facility] [address] [place], [place] [phone] [place] [address] LABS EBV VCA IgG Antibody (02/08/2012 7:25 AM CDT) athologist Signature EBV VCA IgG 188.00 U/mL [facility] Antibody [place] [facility] Comment: Positive, suggests immunologic exposure. Specimen Anatomical Collection Method Collection Time Receive d Time (Source) Location / / Volume Laterality Blood specimen 02/08/2012 7:25 AM 012 7:30 (specimen) CDT AM CDT Darian Joshi MD LAB - BLOOD ORDERABLES Performing Organization Address City/[facility]/ZIP Code Phon e Number [address] [address] [facility] LABS CMV IGG ANTIBODY (02/08/2012 7:25 AM CDT) athologist Signature CMV IgG 3.30 U/mL [facility] Antibody [place] [facility] Comment: Positive for anti-CMV IgG Specimen Anatomical Collection Method Collection Time Receive d Time (Source) Location / / Volume Laterality Blood specimen 02/08/2012 7:25 AM 012 7:30 (specimen) CDT AM CDT Darian Joshi MD LAB - BLOOD ORDERABLES Performing Organization Address City/[facility]/ZIP Code Phon e Number [address] [address] [facility] LABS Immunology recipient: SOT HLA Workup (ABC,DR,DQ,PRA,Crossmatch) (02/08/2012 7:25 AM CDT) [facility] gist Method Time Signature Immunology SOT HLA WORKUP [facility] Test Name [facility] Immunology Specimen [facility] Result received - [facility] CAMPUS LABS report to follow upon completion. Specimen Anatomical Collection Method Collection Time Receive d Time (Source) Location / / Volume Laterality Blood specimen 02/08/2012 7:25 AM 012 7:30 (specimen) CDT AM CDT Darian Joshi MD LAB - IMMUNOLOGY ORDERABLES Performing Organization Address City/State/ZIP Code Phon e Number [address] [place] [address] [place] [facility] (ABNORMAL) CBC with platelets differential (02/08/2012 7:25 AM CDT) [facility] gist Method Time Signature WBC 6.3 4.0 - [facility] 11.0 [place] 10e9/L [place] [facility] RBC Count 3.97 (L) 4.4 - 5.9 [facility] 10e12/L [facility] Hemoglobin 12.0 (L) 13.3 - [facility] 17.7 g/dL [facility] Hematocrit 36.3 (L) 40.0 - [facility] 53.0 % [facility] MCV 91 78 - 100 [facility] fl [facility] MCH 30.2 26.5 - [facility] 33.0 pg [facility] MCHC 33.1 31.5 - [facility] 36.5 g/dL [facility] RDW 15.3 (H) 10.0 - [facility] 15.0 % [facility] Platelet Count 144 (L) 150 - 450 [facility] 10e9/L [facility] Diff Method Automated [facility] Method [facility] % Neutrophils 57.7 40 - 75 % [facility] LAB[facility] % Lymphocytes 27.7 20 - 48 % [facility] % Monocytes 8.2 0 - 12 % [facility] % Eosinophils 6.1 (H) 0 - 6 % [facility] LAB[facility] % Basophils 0.3 0 - 2 % [facility] LAB[facility] % Immature 0.0 0 - 0.4 % [facility] Granulocytes [facility] Absolute 3.6 1.6 - 8.3 [facility] Neutrophil 10e9/L [facility] Absolute 1.7 0.8 - 5.3 [facility] Lymphocytes 10e9/L [facility] Absolute 0.5 0.0 - 1.3 [facility] Monocytes 10e9/L [facility] Absolute 0.4 0.0 - 0.7 [facility] Eosinophils 10e9/L [facility] Absolute 0.0 0.0 - 0.2 [facility] Basophils 10e9/L [facility] Abs Immature 0.0 0 - 0.03 [facility] Granulocytes 10e9/L [facility] Specimen Anatomical Collection Method Collection Time Receive d Time (Source) Location / / Volume Laterality Blood specimen 02/08/2012 7:25 AM 012 7:30 (specimen) CDT AM CDT Darian Joshi MD LAB - BLOOD ORDERABLES Performing Organization Address City/[facility]/ZIP Code Phon e Number [facility] [address] LABS Lupus panel (02/08/2012 7:25 AM CDT) Component Value Ref Test Analysis Performed At Patholo gist Range Method Time Signature Lupus Result Negative NEG [facility] (Note) [place] COMMENTS: [place] [facility] The INR is normal. APTT is normal. ??1:2 Mix is not indicated. DRVVT Screen is normal. Thrombin time is normal. NEGATIVE TEST; A LUPUS ANTICOAGULANT WAS NOT DETECTED IN THI S SPECIMEN WITHIN THE LIMITS OF THE TESTING REPERTOIRE. If the clinical picture is strongly suggestive of an antipho spholipid syndrome, recommend anticardiolipin and [id number] (IgG and IgM) antibody tests. Dee Duenas M.D. ??[phone] 02-09-2012. APTT'S: ?? Seconds Reagent = Stago [...] City/[facility]/ZIP Code Phon e Number [facility] [address] LABS Thrombin time (02/08/2012 7:25 AM CDT) athologist Signature Thrombin Time 16.7 13.0 - [facility] 19.0 sec CAMPUS LABS Specimen Anatomical Collection Method Collection Time Receive d Time (Source) Location / / Volume Laterality Blood specimen 02/08/2012 7:25 AM 012 7:30 (specimen) CDT AM CDT Darian Joshi MD LAB - BLOOD ORDERABLES Performing Organization Address City/[facility]/ZIP Code Phon e Number [facility] [address] [place], [place] [phone] [place] [address] LABS Partial thromboplastin time (02/08/2012 7:25 AM CDT) P athologist Signature PTT 29 22 - 37 sec [facility] LABS Specimen Anatomical Collection Method Collection Time Receive d Time (Source) Location / / Volume Laterality Blood specimen 02/08/2012 7:25 AM 012 7:30 (specimen) CDT AM CDT Darian Joshi MD LAB - BLOOD ORDERABLES Performing Organization Address City/[facility]/ZIP Code Phon e Number [address] LABS INR (02/08/2012 7:25 AM CDT) P athologist Signature INR 1.11 0.86 - 1.14 [facility] LABS Specimen Anatomical Collection Method Collection Time Receive d Time (Source) Location / / Volume Laterality Blood specimen 02/08/2012 7:25 AM 012 7:30 (specimen) CDT AM CDT Darian Joshi MD LAB - BLOOD ORDERABLES Performing Organization Address City/State/ZIP Code Phon e Number [phone] [place] [address] LABS Factor 2 and 5 mutation analysis (02/08/2012 7:07 AM CDT) Component Value Ref Test Analysis Performed At [facility] gist Range Method Time Signature Copath Report Patient Name: ELINOR GUTHRIE MR#: [id number] Specimen #: [id number] Collected: 02/08/2012 07:07 Received: 02/08/2012 09:00 Reported: 02/11/2012 14:03 Ordering Phy(s): DARIAN JOSHI TEST(S) REQUESTED: A: Factor 5 Leiden and Factor 2 by PCR B: DNA Isolation, High purity extraction SPECIMEN DESCRIPTION: Blood METHODOLOGY: ?? The regions of genomic DNA containing the G1 691A Factor 5 gene mutation (Factor V Leiden) and the Factor 2(Prothrombin [id number]) gene mutation were simultaneously amplified using the [employer] chain reaction. ??The amplified products were digested with restri ction endonuclease TaqI and products were analyzed by gel electrop horesis. RESULTS: FACTOR 5-LEIDEN RESULTS: Mutation analyzed: ? 1691G>A Factor 5 Mutation Interpretation: ?ABSENT Factor 5 Mutation genotype: ?G/G FACTOR 2/PROTHROMBIN RESULTS: Mutation analyzed: ? 95404L>A Factor 2 Mutation Interpretation: ?ABSENT Factor 2 Mutation genotype: ?G/G INTERPRETATION: The patient is negative for the Factor 5 mutation and negati ve for the Factor 2 mutation. This test was developed and its performance determined by k[facility] de [facility] ??Molecular Diagnostic Laboratory. It has not [...] By: Liliya Stone MD TESTING LAB LOCATION: [place] [id number] [facility] [address] [place] [id number] COLLECTION SITE: Client: ??[facility] Location: ??UUTXO (B) Specimen Anatomical Collection [...] [facility] gist Range Method Time Signature Color Urine Light Yellow [facility] [place] [facility] Appearance Urine Clear [facility] Glucose Urine 300 (A) NEG [facility] mg/dL [facility] Bilirubin Urine Negative NEG [facility] Ketones Urine Negative NEG [facility] mg/dL [facility] Specific [place] 1.010 1.003 - [facility] Urine 1.035 [facility] Blood Urine Negative NEG [facility] LAB[facility] pH Urine 7.5 (H) 5.0 - [facility] 7.0 pH UNIVERSITY [facility]AMPUS LABS Protein Albumin 300 (A) NEG [facility] Urine mg/dL [facility] LABS Urobilinogen Normal 0.0 - [facility] mg/dL 2.0 [facility] mg/dL CAMP[facility] LABS Nitrite Urine Negative NEG [facility] Leukocyte Negative NEG [facility] Esterase Urine [facility] [place] [facility] Source Unspecified [facility] Urine [facility] LAB[facility] WBC Urine 1 0 - 2 [facility] /HPF [facility] [place] [facility] RBC Urine <1 0 - 2 [facility] /HPF [facility] Hyaline Casts 3 (H) 0 - 2 [facility] /LPF [facility] [place] [facility] Specimen Anatomical Collection Method Collection Time Receive d Time (Source) Location / / Volume Laterality Urine specimen 02/08/2012 7:06 AM 012 7:08 (specimen) CDT AM CDT Darian Joshi MD LAB - URINE ORDERABLES Performing Organization Address City/State/ZIP Code Phon e Number [facility] [address] [facility] documented in this encounter Visit Diagnoses Diagnosis Diabetes mellitus, type 2 (H) Type II or unspecified type diabetes aung litus without mention of complication, not stated as uncontrolled End stage renal disease (H) End stage renal disease documented in this encounter Care Teams Inspector Balance Bridge Relationship Specialty Start Date End Date Toña Jones MD PCP - General Nephrology 11/25/11 01/01/14 documented as of this encounter
--- OUTSIDE RECORDS SUMMARY | 2022-06-23 11:31 | XMS_ITS | Encounter Summary ---
:1950 Author Organization [place] Address [address] [facility] [place] [address] Care Team Providers Name Role Phone Toña [...] on filedocumented in this encounter Care Teams Archeology Professor Relationship Specialty Start Date End Date Toña Jones MD PCP - General Nephrology 11/25/11 01/01/14 Momo Forbes PCP - General Family Practice 01/02/14 [facility] [address] [place] [address] Ingrid Santana, RN Registered Nurse Transplant 02/10/12 documented as of this encounter
--- OUTSIDE RECORDS SUMMARY | 2022-06-23 11:31 | XMS_ITS | Encounter Summary ---
:1950 Author Organization [place] Address [address] [place] [address] Care Team Providers Name Role Phone Toña [...] filedocumented in this encounter Care Teams Manufacturing Management Associate Relationship Specialty Start Date End Date Toña Jones MD PCP - General Nephrology 11/25/11 01/01/14 Momo Forbes PCP - General Family Practice 01/02/14 [facility] [address] [place] [address] Ingrid Santana, RN Registered Nurse Transplant 02/10/12 documented as of this encounter
--- OUTSIDE RECORDS SUMMARY | 2022-06-23 11:31 | XMS_ITS | Encounter Summary ---
:1950 Author Organization [place] Address [address] [place] [address]. [place] [address] Care Team Providers Name Role Phone Toña Jones MD Primary Care Provider Ingrid Santana RN Unavailable Unavailable Momo Forbes Primary Care Provider Encounter Details Date Type Department Care Team Description 01/06/2011 Historic Results [facility] Provider, MD Marcela Social History Tobacco Use [...] on filedocumented in this encounter Care Teams Advertising Campaign Manager Relationship Specialty Start Date End Date Toña Jones MD PCP - General Nephrology 11/25/11 01/01/14 Momo Forbes PCP - General Family Practice 01/02/[address] [address] Siers, Ingrid A, RN Registered Nurse Transplant 02/10/12 documented as of this encounter
--- OUTSIDE RECORDS SUMMARY | 2022-06-23 11:31 | XMS_ITS | Encounter Summary ---
:1950 Author Organization [place] Address [address] [place] [address] Care Team Providers Name Role Phone Toña Jones MD Primary Care Provider Ingrid Santana RN Unavailable Unavailable Encounter Details Date Type Department Care Team Description 02/08/2012 Results Only LABORATORY RESULTS Jeff Joshi MD [address] [facility] [address] [place] [address] (Wo rk) Social History Tobacco [...] II Single Antigen (02/08/2012 7:07 AM CDT) [facility] gist Method Time Signature SA2 Test [...] e Number [facility] Immunology/Histocompatabil [place], [place] [address] [facility] [address], Room 3-580 HISTOTRAC documented in this encounter Visit Diagnoses Not on filedocumented in this encounter Care Teams Rigger Third Relationship Specialty Start Date End Date Toña Jones MD PCP - General Nephrology 11/25/11 01/01/14 Ingrid Santana, RN Registered Nurse Transplant 02/10/12 documented as of this encounter
--- OUTSIDE RECORDS SUMMARY | 2022-06-23 11:31 | XMS_ITS | Encounter Summary ---
:1950 Author Organization [place] Address [address] [facility] [place] [address] Care Team Providers Name Role Phone Toña Jones MD Primary Care Provider Ingrid Santana RN Unavailable Unavailable Momo Forbes Primary Care Provider Encounter Details Date Type Department Care Team Description 08/30/2011 Historic Results [facility] Provider, MD Marcela Social History Tobacco Use Types Packs/Day Years Used Date Smoking Tobacco: Never Assessed Sex Assigned at Date Recorded Not on file documented as of this encounter Plan of Treatment Not on filedocumented as of this encounter Procedures Procedure Name Priority Date/Time Associated Diagnosis Comme nts EKG CARDIAC - HIM SCAN 08/30/2011 8:28 AM FOOD COUNSELOR - ARCHIVE ECHO CARDIAC - HIM SCAN 08/30/2011 8:27 AM FOOD COUNSELOR - ARCHIVE documented in this encounter Results EKG CARDIAC - HIM SCAN - ARCHIVE (08/30/2011 8:28 AM FOOD COUNSELOR) Specimen (Source) Anatomical Location Collection Method / Collectio n Time Received Time / Laterality Volume Narrative This result has an attachment that is no t available. Gich Provider ECG ORDERABLES ECHO CARDIAC - HIM SCAN - ARCHIVE (08/30/2011 8:27 AM FOOD COUNSELOR) Anatomical Region Laterality Modality Echocardiography Specimen (Source) Anatomical Location Collection Method / Collectio n Time Received Time / Laterality Volume Narrative This result has an attachment that is no t available. Marcela Provider CV ECHO ORDERABLES documented in this encounter Visit Diagnoses Not on filedocumented in this encounter Care Teams Hand Endband Cutter Relationship Specialty Start Date End Date Toña Jones MD PCP - General Nephrology 11/25/11 01/01/14 Momo Forbes PCP - General Family Practice 01/02/14 [facility] [address] [place] [address] Ingrid Santana, RN Registered Nurse Transplant 02/10/12 documented as of this encounter
--- OUTSIDE RECORDS SUMMARY | 2022-06-23 11:31 | XMS_ITS | Encounter Summary ---
:1950 Author Organization [place] Address [address] [facility] [place] [address] Care Team Providers Name Role Phone Toña [...] filedocumented in this encounter Care Teams Automotive Hardware Engineer Relationship Specialty Start Date End Date Toña Jones MD PCP - General Nephrology 11/25/11 01/01/14 Momo Forbes PCP - General Family Practice 01/02/14 [facility] [address] [place] [address] Ingrid Santana, RN Registered Nurse Transplant 02/10/12 documented as of this encounter
--- OUTSIDE RECORDS SUMMARY | 2022-06-23 11:31 | XMS_ITS | Encounter Summary ---
:1950 Author Organization [place] Address [address] [place] [address]. [place] [address] Care Team Providers Name Role Phone Toña Jones MD Primary Care Provider Ingrid Santana RN Unavailable Unavailable Momo Forbes Primary Care Provider Encounter Details Date Type Department Care Team Description 05/12/2011 Historic Results [facility] Provider, MD Marcela Social History Tobacco Use [...] filedocumented in this encounter Care Teams Manager Fraud Relationship Specialty Start Date End Date Toña Jones MD PCP - General Nephrology 11/25/11 01/01/14 Momo Forbes PCP - General Family Practice 01/02/[address] [address] Siers, Ingrid A, RN Registered Nurse Transplant 02/10/12 documented as of this encounter
--- OUTSIDE RECORDS SUMMARY | 2022-06-23 11:31 | XMS_ITS | Encounter Summary ---
:1950 Author Organization [place] Address [facility] [place] [address] Care Team Providers Name Role Phone Toña Jones MD Primary Care Provider Reason for Visit Reason Comments Transplant Evaluation Kidney transplant evaluation - Diabetes, End Stage Renal Disease Encounter Details Date Type Department Care Team Description 02/08/2012 Office Visit The Transplant Edda Cardenas, Ty Blink, DM (diabetes 2nd Floor, Clinic 2A MD mellitus), type 2 (H) Tommy Wilburn (Primar y Dx) [address] [phone] Social History Tobacco Use Types Packs/Day Years [...] (willing/able to accept information): Yes Any cultural factors/religion beliefs that may influence understanding or compliance? [...] uncontrolled documented in this encounter Care Teams Appliance Technician Relationship Specialty Start Date End Date Toña Jones MD PCP - General Nephrology 11/25/11 01/01/14 documented as of this encounter
--- OUTSIDE RECORDS SUMMARY | 2022-06-23 11:31 | XMS_ITS | Encounter Summary ---
:1950 Author Organization [place] Address [address] [facility] [place] [address] Care Team Providers Name Role Phone Toña Jones MD Primary Care Provider Ingrid Santana RN Unavailable Unavailable Reason for Visit Reason Comments Transplant Evaluation Kidney transplant evaluation - chronic kidney disease Encounter Details Date Type Department Care Team Description 02/10/2012 Office Visit The Transplant Edda Cardenas, Ty Blink, DM (diabetes 2nd Floor, Clinic 2A MD mellitus), type 2 (H) oTmmy Wilburn (Primar y Dx) [address] [phone] Social History Tobacco Use Types Packs/Day Years [...] this time. Patient to follow up with mail service coordinator. documented in this encounter Plan of Treatment Not on filedocumented as of this encounter Visit Diagnoses Diagnosis DM (diabetes mellitus), type 2 (H) - Ana ashley Type II or unspecified type diabetes aung litus without mention of complication, not stated as uncontrolled documented in this encounter Care Teams Adult Day Care Worker Relationship Specialty Start Date End Date Toña Jones MD PCP - General Nephrology 11/25/11 01/01/14 Ingrid Santana RN Registered Nurse Transplant 02/10/12 documented as of this encounter
--- OUTSIDE RECORDS SUMMARY | 2022-06-23 11:31 | XMS_ITS | Encounter Summary ---
:1950 Author Organization [place] Address [facility] [place] [address] Care Team Providers Name Role Phone Toña Jones MD Primary Care Provider Reason for Referral - Closed Specialty Diagnoses / Procedures Referred By Contact Refer red To Contact Diagnoses Diabetes mellitus, type 2 (H) End stage renal disease (H) [facility] Renal 2nd Floor, [place] [phone] Referral ID Status Reason Start Date Expiration Date Visits Requ ested Visits Authorized [id number] Closed 12/02/2011 05/30/2012 1 1 - Closed Specialty Diagnoses / Procedures Referred By Contact Refer red To Contact Diagnoses Diabetes mellitus, type 2 (H) End stage renal disease (H) [facility] Renal [facility] Floor, [place] [phone] Referral ID Status Reason Start Date Expiration Date Visits Requ ested Visits Authorized [id number] Closed 12/02/2011 05/30/2012 1 1 - Closed Specialty Diagnoses / Procedures Referred By Contact Refer red To Contact Diagnoses Diabetes mellitus, type 2 (H) End stage renal disease (H) [facility] Renal 2nd Floor, [place] [phone] Referral ID Status Reason Start Date Expiration Date Visits Requ ested Visits Authorized [id number] Closed 12/02/2011 05/30/2012 1 1 - Closed Specialty Diagnoses / Procedures Referred By Contact Refer red To Contact Diagnoses Diabetes mellitus, type 2 (H) End stage renal disease (H) [facility] Renal 2nd Floor, Clinic 2A [place] [phone] Referral ID Status Reason Start Date Expiration Date Visits Requ ested Visits Authorized [id number] Closed 12/02/2011 05/30/2012 1 1 - Closed Specialty Diagnoses / Procedures Referred By Contact Refer red To Contact Diagnoses Diabetes mellitus, type 2 (H) End stage renal disease (H) [facility] Renal [facility] Floor, [place] [phone] Referral ID Status Reason Start Date Expiration Date Visits Requ ested Visits Authorized [id number] Closed 12/02/2011 05/30/2012 1 1 - Closed Specialty Diagnoses / Procedures Referred By Contact Refer red To Contact Diagnoses Diabetes mellitus, type 2 (H) End stage renal disease (H) [facility] Renal [facility] Floor, [place] [phone] Referral ID Status Reason Start Date Expiration Date Visits Requ ested Visits Authorized [id number] Closed 12/02/2011 05/30/2012 1 1 - Closed Specialty Diagnoses / Procedures Referred By Contact Refer red To Contact Diagnoses Diabetes mellitus, type 2 (H) End stage renal disease (H) [facility] Renal 2nd Floor, Clinic 2A [address] [phone] Referral ID Status Reason Start Date Expiration Date Visits Requ ested Visits Authorized [id number] Closed 12/02/2011 05/30/2012 1 1 - Closed Specialty Diagnoses / Procedures Referred By Contact Refer red To Contact Diagnoses Diabetes mellitus, type 2 (H) End stage renal disease (H) [facility] Renal 2nd Floor, Clinic 2A [address] [phone] Referral ID Status Reason Start Date Expiration Date Visits Requ ested Visits Authorized [id number] Closed 12/02/2011 05/30/2012 1 1 - Closed Specialty Diagnoses / Procedures Referred By Contact Refer red To Contact Diagnoses Diabetes mellitus, type 2 (H) End stage renal disease (H) [facility] Renal 2nd Floor, Clinic 2A [address] [phone] Referral ID Status Reason Start Date Expiration Date Visits Requ ested Visits Authorized [id number] Closed 12/02/2011 05/30/2012 1 1 Encounter Details Date Type Department Care Team Description 12/02/2011 Orders Only Nephrology Ingrid Santana, Diabetes mellitus, type 2 (H ); 2nd Floor, Clinic 2A RN End stage renal disease (H) [address] [phone] Social History Tobacco Use Types [...] 2 (H) End stage renal disease (H) FIRE PREVENTION ENGINEER Referral Routine Diabetes mellitus, Ordered: 12/02/2011 REFERRAL type 2 (H) End stage renal disease (H) NEPHROLOGY ADULT REFERRAL Referral Routine Diabetes mellit us, Ordered: 12/02/2011 type 2 (H) End stage renal disease (H) GENERAL SURG ADULT Referral Routine Diabetes mellitus, Ord ered: 12/02/2011 REFERRAL type 2 (H) End stage renal disease (H) OPHTHALMIC MEDICAL ASSISTANT REFERRAL Referral Routine Diabetes mellitu s, [...] disease documented in this encounter Care Teams Nitric Acid Concentrator Operator Relationship Specialty Start Date End Date Toña Jones MD PCP - General Nephrology 11/25/11 01/01/14 documented as of this encounter
--- OUTSIDE RECORDS SUMMARY | 2022-06-23 11:31 | XMS_ITS | Encounter Summary ---
:1950 Author Organization [place] Address [address] [facility] [place] [address] Care Team Providers Name Role Phone Toña Jones MD Primary Care Provider Ingrid Santana RN Unavailable Unavailable Encounter Details Date Type Department Care Team Description 12/07/2011 Orders Only Nephrology Chucho Joshi MD Dialysis patient (H) 2nd Floor, Clinic 2A [address] RANJAN (Primary Dx) Tommy Ruiz[address] [place] [address] [place], [place] [phone] (Wo rk) [phone] Social History Tobacco Use Types Packs/Day Years Used Date Smoking Tobacco: Never Assessed Sex Assigned at Date Recorded Not on file documented as of this encounter Plan of Treatment Not on filedocumented as of this encounter Visit Diagnoses Diagnosis Dialysis patient (H) - Primary Renal dialysis status documented in this encounter Care Teams Merchandise Flow Manager Relationship Specialty Start Date End Date Toña Jones MD PCP - General Nephrology 11/25/11 01/01/14 Ingrid Santana RN Registered Nurse Transplant 02/10/12 documented as of this encounter
--- OUTSIDE RECORDS SUMMARY | 2022-06-23 11:31 | XMS_ITS | Encounter Summary ---
:1950 Author Organization [place] Address [address] [facility] [place] [address] Care Team Providers Name Role Phone Toña Jones MD Primary Care Provider Ingrid Santana RN Unavailable Unavailable Reason for Visit Reason Comments Heart Problem Consult prior to kidney proctor splant, needs EKG please. Encounter Details Date Type Department Care Team Description 02/10/2012 Office Visit Justice Barbara Bradley Unspecified es sential hypertension; [facility] [place]a Pre-operative clearance Heart [address] [place] [address] Building [phone] 4th Floor, Clinic 4B (Work) [address] [phone] Social History Tobacco Use [...] Stay Well and Call Maribel Nicole RN [phone] with any questions or concerns. You are scheduled for an Adenosine Stress Test 02/15/2012: Please check into the [facility] Waiting Room at 12:15pm for this [...] and you need to reschedule, please call [phone]. January 2012Tuesday 1 2 3 4 5 6 7 8 9 10 11 12 13 14 15 16 17 18 19 [facility] NEW 6:30 AM (30 min.) Evaluation, [facility] The Transplant [facility] FULL PULMONARY FUNCTION 8:00 AM (60 min.) 2, [facility] Pfl [place] Pulmonary Function Laboratory RADIOLOGY 8:05 AM (10 min.) Uicxr2 [facility] Diagnostic Imaging UU PREP KIDNEY/PANCREAS TX 9:00 AM (120 min.) Angela Lopez RN [facility], Patient Learning Center [facility] TRANSPLANT CLASS KIDNEY 9:00 AM (90 min.) Class, [facility] Transplant The Transplant Center [facility] MORTGAGE PROCESSING MANAGER 11:00 AM (30 min.) Coordinator, [facility] Care [facility] Transplant [facility] PRE-TX KIDNEY EVAL 11:00 AM (30 min.) Jesus Thomas MD Transplant Surgery LAB 11:30 AM (15 min.) Pwb, Op Lab [facility], Lab RADIOLOGY 1:30 PM (55 min.) Uecvc1 [facility], Echocardiography 20 21 [facility] RETURN 7:00 AM (15 min.) Evaluation, [facility] The Transplant Center RADIOLOGY 7:00 AM (60 min.) Uicusr2 [facility] Diagnostic Imaging CONSULT HOD 8:00 AM (60 min.) Martina Mcneill RD [facility], [place], Nutrition Services [facility] TX SOCIAL WORK 9:00 AM (60 min.) 2, [facility] Tx Consult Room The Transplant Center [facility] PRE-TX KIDNEY EVAL 10:00 AM (60 min.) Joseph Quintana MD Nephrology [facility] PANCREAS-KIDNEY TX W/U 11:30 AM (30 min.) Barbara Bradley MD [facility] Physicians Heart 22 23 24 25 26 RADIOLOGY 12:30 PM (15 min.) Uninj [facility], Nuclear Medicine RADIOLOGY 1:15 PM (20 min.) Unr1 [facility], Nuclear Medicine RADIOLOGY 1:40 PM (30 min.) [facility] ELECTROCARDIOLOGY RADIOLOGY 3:10 PM (20 min.) [address], Nuclear Medicine 27 28 29 20 March [...] On HD since Aug 2011. No past NE, stress tests or coronary angiogorams. No chest [...] 1 tablet by mouth daily. ??? 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 Perez MD authorizer. Divisions of Cardiology [place], [place] CC Patient Care Team: Toña Jones MD as PCP - General (Nephrology) Ingrid Santana, RN as Registered Nurse (Transplant) JESUS THOMAS documented in this encounter Plan of Treatment Not on filedocumented as of this encounter Visit Diagnoses Diagnosis Unspecified essential hypertension Pre-operative clearance Preoperative examination, unspecified documented in this encounter Care Teams Health Sciences Program Coordinator Relationship Specialty Start Date End Date Toña Jones MD PCP - General Nephrology 11/25/11 01/01/14 Ingrid Santana, RN Registered Nurse Transplant 02/10/12 documented as of this encounter
--- OUTSIDE RECORDS SUMMARY | 2022-06-23 11:31 | XMS_ITS | Encounter Summary ---
:1950 Author Organization [place] Address [address] [place] [address] Care Team Providers Name Role Phone Toña Jones MD Primary Care Provider Ingrid Santana RN Unavailable Unavailable Encounter Details Date Type Department Care Team Description 02/10/2012 Orders Only [facility] Anita Joshi MD Diabetes mellitus, type 2 (H); Clinic Imaging [address] [place] [address] End stage renal disease (H) [facility] [address] [place] [address] 1st Floor, Clinic [address]D [address] [place] [address] [phone] Social History Tobacco Use [...] AM Diabetes mellitus , Results for this NON-VASCULAR CDT type 2 (H) procedure are in [...] agree with findings. Chucho Joshi MD IMG ORDERABLES documented in this encounter Visit Diagnoses Diagnosis Diabetes mellitus, type 2 (H) Type II or unspecified type diabetes aung litus without mention of complication, not stated as uncontrolled End stage renal disease (H) End stage renal disease documented in this encounter Care Teams Rental Clerk Relationship Specialty Start Date End Date Toña Jones MD PCP - General Nephrology 11/25/11 01/01/14 Ingrid Santana RN Registered Nurse Transplant 02/10/12 documented as of this encounter
--- OUTSIDE RECORDS SUMMARY | 2022-06-23 11:31 | XMS_ITS | Encounter Summary ---
:1950 Author Organization [place] Address [address] [place] [address] Care Team Providers Name Role Phone Toña Jones MD Primary Care Provider Ingrid Santana RN Unavailable Unavailable Encounter Details Date Type Department Care Team Description 02/10/2012 Hospital Encounter [facility] Jesus Cardenas MD Nutrition Services Martina Harley, RD [address] [facility] [address] [place] [address] 420 [facility] EMERGENCY DEPARTMENT Joseph Quintana MD [address] [facility] 353 [facility] [address] [place] [address] 84 [place] [address] Social History Tobacco Use Types Packs/Day Years [...] tablet by mouth 0 02/18/2014 daily. B pzvhwtg-G-mrdtw acid Take 1 capsule by mouth 0 [...] Mcneill, RD - 02/10/2012 8:47 AM CDT [facility] Medical Nutrition Therapy Visit Type: [...] filedocumented in this encounter Care Teams Mobile Developer Relationship Specialty Start Date End Date Toña Jones MD PCP - General Nephrology 11/25/11 01/01/14 Ingrid Santana RN Registered Nurse Transplant 02/10/12 documented as of this encounter
--- OUTSIDE RECORDS SUMMARY | 2022-06-23 11:31 | XMS_ITS | Encounter Summary ---
:1950 Author Organization [place] Address [address] [place] [address] Care Team Providers Name Role Phone Toña Jones MD Primary Care Provider Encounter Details Date Type Department Care Team Description 02/08/2012 Hospital Encounter [facility] Jesus Cardenas MD Patient Learning Bobby Angela Leon, BOGDAN [address] [facility] [address] [place] [address] [id number] [address] [place] [address] Social History Tobacco Use Types Packs/Day Years [...] tablet by mouth 0 02/18/2014 daily. B jvssyfg-Q-hlzkx acid Take 1 capsule by mouth 0 [...] on filedocumented in this encounter Care Teams Knock Out Hand Relationship Specialty Start Date End Date Toña Jones MD PCP - General Nephrology 11/25/11 01/01/14 documented as of this encounter
--- OUTSIDE RECORDS SUMMARY | 2022-06-23 11:31 | XMS_ITS | Encounter Summary ---
:1950 Author Organization [place] Address [address] [place] [address] Care Team Providers Name Role Phone Toña Jones MD Primary Care Provider Ingrid Santana RN Unavailable Unavailable Encounter Details Date Type Department Care Team Description 02/08/2012 Results Only LABORATORY RESULTS Jeff Joshi MD [address] [facility] [address] [place] [address] (Wo rk) Social History Tobacco [...] HLA-DR/DQ Typing pcr/ssop (02/08/2012 7:07 AM CDT) P athologist Signature Drsso Test SSOP HISTOTRAC Method [...] Phon e Number [facility] HLA LABORATORY Immunology/Histocompatabil [place], [place] [address] ity [facility] [address] Building, Room 3-580 HISTOTRAC documented in this encounter Visit Diagnoses Not on filedocumented in this encounter Care Teams Sex Offender Treatment Professional Relationship Specialty Start Date End Date Toña Jones MD PCP - General Nephrology 11/25/11 01/01/14 Ingrid Santana, RN Registered Nurse Transplant 02/10/12 documented as of this encounter
--- OUTSIDE RECORDS SUMMARY | 2022-06-23 11:31 | XMS_ITS | Encounter Summary ---
:1950 Author Organization [place] Address [address] [place] [address] Care Team Providers Name Role Phone Toña Jones MD Primary Care Provider Ingrid Santana RN Unavailable Unavailable Encounter Details Date Type Department Care Team Description 02/15/2012 Hospital Encounter [facility] Barbara Bradley Unsp ecified essential hypertension; [facility] Imaging MD Monae Pre-operative clearance [address] [place] [phone] Social History Tobacco Use Types Packs/Day [...] tablet by mouth 0 02/18/2014 daily. B mretkmu-V-yvtjs acid Take 1 capsule by mouth 0 [...] documented in this encounter Care Teams General Machine Operator Relationship Specialty Start Date End Date Toña Jones MD PCP - General Nephrology 11/25/11 01/01/14 Ingrid Santana, RN Registered Nurse Transplant 02/10/12 documented as of this encounter
--- OUTSIDE RECORDS SUMMARY | 2022-06-23 11:31 | XMS_ITS | Encounter Summary ---
:1950 Author Organization [place] Address [facility] [place] [address] Care Team Providers Name Role Phone Toña Jones MD Primary Care Provider Ingrid Santana RN Unavailable Unavailable Reason for Visit Reason Comments Social Work Services Encounter Details Date Type Department Care Team Description 02/10/2012 Office Visit The Transplant Akanksha Stacy Organ transplant 2nd Floor, Clinic 2A SHALOM Zacarias candidate (Primary [facility] Dx) [address] [phone] Social History Tobacco Use Types Packs/Day Years [...] old Duration of Interview: 40 min Process: Rhig-gr-[facility] Interview (counseling < 50%) Present at Appointment: Latrell, his brother Kiran and Latrell Zamora, Transplant Financial Block PlacerProfiler Worker: CECY Ortiz, WESTERN PHILOSOPHY PROFESSOR Date: February 10, 2012 Type of transplant: Kidney Donor type: Latrell indicated that he does not know of any potential donors at this time. [place] Prior Transplants: No Status of Transplant: Current Living Situation Location: [facility] [address] [place] [address] [facility] [phone] With Whom: Alone Family/ Social Support: Kiran lives in [place], [place]. Available, helpful Committed relationship: Latrell indicated [...] Income Savings Insurance Latrell has BC/BS through [employer] until 07/22/13. He has also applied for [...] that assist with fund raising. Discussed asking foundry worker general for assistance with cobra premiums and that [...] No Adequate Finances Yes Signature: CECY Ortiz, [facility] Title: Clinical Motel Food Service Supervisor documented in this encounter Plan of Treatment Not on filedocumented as of this encounter Visit Diagnoses Diagnosis Organ transplant candidate - Primary Awaiting organ transplant status documented in this encounter Care Teams International Account Executive Relationship Specialty Start Date End Date Toña Jones MD PCP - General Nephrology 11/25/11 01/01/14 Ingrid Santana, RN Registered Nurse Transplant 02/10/12 documented as of this encounter
--- OUTSIDE RECORDS SUMMARY | 2022-06-23 11:31 | XMS_ITS | Encounter Summary ---
:1950 Author Organization [place] Address [address] [place] [address] Care Team Providers Name Role Phone Toña Jones MD Primary Care Provider Reason for Visit Reason Onset Date Comments Patient Reminder 02/01/2012 Encounter Details Date Type Department Care Team Description 02/01/2012 PRE VISIT Nephrology Joseph Quintana, Patient Reminder 2nd Floor, Clinic 2A MD Tommy Wilburn [address] [place] [address] 1932 [address] [place], [place] [address] [place] [address] (Wo rk) [id number] [phone] Social History Tobacco Use Types Packs/Day Years [...] in this encounter Care Teams Cloth Printing Utility Worker Relationship Specialty Start Date End Date Toña Jones MD PCP - General Nephrology 11/25/11 01/01/14 documented as of this encounter
--- OUTSIDE RECORDS SUMMARY | 2022-06-23 11:31 | XMS_ITS | Encounter Summary ---
:1950 Author Organization [place] Address [address] [place] [address] Care Team Providers Name Role Phone Toña Jones MD Primary Care Provider Encounter Details Date Type Department Care Team Description 02/08/[address] [facility] Thomas, Ty Blink, End sta ge kidney Pulmonary Function MD disease ( H) (Primary Laboratory Dx) 6th Floor [address] [place] [address] Social History Tobacco Use Types [...] TESTING Routine 02/08/2012 8:35 End stage kidn ey Results for this AM CDT disease (H) procedure are i n the results section. HIM PROCEDURE SCAN Routine 02/08/2012 End stage kidney disease (H) documented in this encounter Results PFT Lab Testing (Generic) (02/08/2012 8:35 AM CDT) [facility] Method Time Signature Pulmonary COPATH Function Test Name: ? ELINOR GUTHRIE ? ID: ?[id number] Doctor: ?JESUS THOMAS ?Height: ?72.00 in ? [...] INTERPRETATION: The FVC, FEV1, FEV1/FVC ratio and CGE82-25% are within normal limits. ??The inspiratory flow [...] / Volume Laterality 02/08/2012 8:35 AM CDT Ty Blink Ronald MICHELE PFT ORDERABLES Performing Organization Address City/State/ZIP Code Phon e Number COPATH PFT Procedure Scan - HIM Procedure Scan (02/08/2012) Narrative This result has an attachment that is no t available. Jesus Thomas MD PROCEDURES documented in this encounter Visit Diagnoses Diagnosis End stage kidney disease (H) - Primary End stage renal disease documented in this encounter Care Teams Patient Access Relationship Specialty Start Date End Date Toña Jones MD PCP - General Nephrology 11/25/11 01/01/14 documented as of this encounter
--- OUTSIDE RECORDS SUMMARY | 2022-06-23 11:31 | XMS_ITS | Encounter Summary ---
:1950 Author Organization [employer] Address [address] [place] [address] Care Team Providers Name Role Phone Toña Jones MD Primary Care Provider Reason for Visit Reason Onset Date Comments Pre Visit Planning - Done 02/07/2012 Consult prior to kidney transplant, needs EKG please. Encounter Details Date Type Department Care Team Description 02/07/2012 PRE VISIT [facility] Barbara Bradley Pre Visit Planning - Physicians Orestes Licona MD Done (Consult prior to Sanders Wang[facility]steen [address] kidney transplant, [place] [address] needs EKG please.) 4th Floor, Clinic [address] [address] Social History Tobacco Use Types Packs/Day Years Used Date Smoking Tobacco: Former Cigarettes Quit : 08/22/2004 Cigars Smokeless Tobacco: Never Alcohol Use Standard Drinks/Week Comments Not Asked [...] on filedocumented in this encounter Care Teams Tablet Coater Relationship Specialty Start Date End Date Toña Jones MD PCP - General Nephrology 11/25/11 01/01/14 documented as of this encounter
--- OUTSIDE RECORDS SUMMARY | 2022-06-23 11:31 | XMS_ITS | Encounter Summary ---
:1950 Author Organization [place] Address [address] [place] [address] Care Team Providers Name Role Phone Toña Jones MD Primary Care Provider Ingrid Santana RN Unavailable Unavailable Encounter Details Date Type Department Care Team Description 02/08/2012 Orders Only [facility] Jesus Cardenas Di abetes mellitus, type 2 (H); [facility] Gordo oneal MD End stage renal disease (H); [address] [place] [address] Social History Tobacco Use Types Packs/Day Years [...] Results ABO type (02/08/2012 1:52 PM CDT) [facility] Method Time Signature ABO A [facility] RH(D) Pos [facility] Specimen 02/11/2012 [facility] Expires [facility] Specimen Anatomical Collection Method Collection Time Receive d Time (Source) Location / / Volume Laterality Blood specimen 02/08/2012 1:52 PM 012 1:54 (specimen) CDT PM CDT Chucho Joshi MD LAB - BLOOD BANK TEST ORDER Performing Organization Address City/State/ZIP Code Phon e Number [id number] [place] [address] LABS EKG 12-lead, tracing only (02/08/2012 7:30 AM CDT) [facility] Method Time Signature Ventricular Rate 60 BPM RADIOLOGY RESULTS Atrial Rate 60 BPM RADIOLOGY RESULTS AR Interval 186 ms RADIOLOGY RESULTS QRS Duration 104 ms RADIOLOGY RESULTS QT 440 ms RADIOLOGY RESULTS QTc 440 ms RADIOLOGY RESULTS P [place] 36 degrees RADIOLOGY RESULTS R AXIS 0 degrees RADIOLOGY RESULTS T [place] 36 degrees RADIOLOGY RESULTS Interpretation Sinus rhythm [...] DEFINED documented in this encounter Care Teams Parking Lot Chauffeur Relationship Specialty Start Date End Date Toña Jones MD PCP - General Nephrology 11/25/11 01/01/14 Ingrid Santana, RN Registered Nurse Transplant 02/10/12 documented as of this encounter
--- OUTSIDE RECORDS SUMMARY | 2022-06-23 11:31 | XMS_ITS | Encounter Summary ---
:1950 Author Organization [place] Address [address] [facility] [place] [address] Care Team Providers Name Role Phone Toña Jones MD Primary Care Provider Blayne Santana RN Unavailable Unavailable Reason for Visit Reason Comments Transplant Evaluation Encounter Details Date Type Department Care Team Description 02/08/2012 Office Visit Transplant Surgery Jesus Cardenas, DM (di abetes mellitus), type 2 (H); Clinic End stage renal disease (H) 2nd Floor, Clinic [address] [id number] Social History Tobacco Use Types Packs/Day Years [...] from the original note were not included. 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 Smoking status: [...] Take 1 tablet by mouth daily. B vyscttn-O-xqurg acid (NEPHROCAPS) 1 MG capsule Take 1 [...] Test 02/08/12 0725 INR 1.11 F2MAR -- [id number] -- Lipid Profile: Cholesterol Date Value Range [...] 09, 2012 3:21 PM Pre Abdominal Organ Fabric Coating Supervisor Evaluation Note: present: Dr. Jesus Cardenas Attendees: self Type of transplant: kidney Required Topic(s) Discussed: Evaluation notification document, SRTR data, Multiple wait list brochure, PAINT MAKER, Evaluation/approval process, Selection committee process, Wait list [...] spent with patient: 15 minutes -- Nurse Fabric Coating Supervisor Pager [phone] BLAYNE SANTANA -- Nurse Fabric Coating Supervisor Pager [phone] >> Lnea Sánchez RN santino Feb 08, 2012 11:21 [...] disease documented in this encounter Care Teams Snagger Relationship Specialty Start Date End Date Toña Jones MD PCP - General Nephrology 11/25/11 01/01/14 Blayne Santana, RN Registered Nurse Transplant 02/10/12 documented as of this encounter
--- OUTSIDE RECORDS SUMMARY | 2022-06-23 11:31 | XMS_ITS | Encounter Summary ---
:1950 Author Organization [place] Address [address] [place] [address] Care Team Providers Name Role Phone Toña Jones MD Primary Care Provider Ingrid Santana RN Unavailable Unavailable Encounter Details Date Type Department Care Team Description 02/08/2012 Results Only LABORATORY RESULTS Jeff Joshi MD [address] [facility] [address] [place] [address] (Wo rk) Social History Tobacco [...] HLA-AB Typing pcr/ssop (02/08/2012 7:07 AM CDT) P athologist Signature ABTest Method SSOP HISTOTRAC A* [...] Phon e Number [facility] Immunology/Histocompatabil [place], [place] [address] [facility] [address] [facility] [address], Room 3-580 HISTOTRAC documented in this encounter Visit Diagnoses Not on filedocumented in this encounter Care Teams Stone Trimmer Relationship Specialty Start Date End Date Toña Jones MD PCP - General Nephrology 11/25/11 01/01/14 Ingrid Santana, RN Registered Nurse Transplant 02/10/12 documented as of this encounter
--- OUTSIDE RECORDS SUMMARY | 2022-06-23 11:32 | XMS_ITS | Encounter Summary ---
:1950 Author Organization [place] Address [address] [facility] [place] [address] Care Team Providers Name Role Phone Toña [...] SCAN - ARCHIVE (12/09/2005 8:28 AM CDT) Anatomical Region Laterality Modality Echocardiography Specimen [...] on filedocumented in this encounter Care Teams Leaflet Or Newspaper Deliverer Relationship Specialty Start Date End Date Toña Jones MD PCP - General Nephrology 11/25/11 01/01/14 Momo Forbes PCP - General Family Practice 01/02/14 [facility] [address] [place] [address] Ingrid Santana, RN Registered Nurse Transplant 02/10/12 documented as of this encounter
--- OUTSIDE RECORDS SUMMARY | 2022-06-23 11:32 | XMS_ITS | Encounter Summary ---
:1950 Author Organization [place] Address [address] [place] [address]. [place] [address] Care Team Providers Name Role Phone Toña Jones MD Primary Care Provider Ingrid Santana RN Unavailable Unavailable Momo Forbes Primary Care Provider Encounter Details Date Type Department Care Team Description 05/25/2010 Historic Results [facility] Provider, MD Marcela Social History Tobacco Use [...] filedocumented in this encounter Care Teams Network Solutions Architect Relationship Specialty Start Date End Date Toña Jones MD PCP - General Nephrology 11/25/11 01/01/14 Momo Forbes PCP - General Family Practice 01/02/[address] [address] Siers, Ingrid A, RN Registered Nurse Transplant 02/10/12 documented as of this encounter
--- OUTSIDE RECORDS SUMMARY | 2022-06-23 11:32 | XMS_ITS | Encounter Summary ---
:1950 Author Organization [place] Address [facility] [place] [address] Care Team Providers Name Role Phone Toña Jones MD Primary Care Provider Ingrid Santana RN Unavailable Unavailable Momo Forbes Primary Care Provider Encounter Details Date Type Department Care Team Description 01/28/1998 [facility] Cesar Tejeda [facility] [address] [place], [place] [address] (Wo rk) Social History Tobacco Use Types Packs/Day Years Used Date Smoking Tobacco: Never Assessed Sex Assigned at Date Recorded Not on file documented as of this encounter Plan of Treatment Not on filedocumented as of this encounter Visit Diagnoses Not on filedocumented in this encounter Care Teams Human Relations Professor Relationship Specialty Start Date End Date Toña Jones MD PCP - General Nephrology 11/25/11 01/01/14 Momo Forbes PCP - General Family Practice 01/02/[address] [address] Ingrid Santana, RN Registered Nurse Transplant 02/10/12 documented as of this encounter
--- OUTSIDE RECORDS SUMMARY | 2022-06-23 11:32 | XMS_ITS | Encounter Summary ---
:1950 Author Organization [place] Address [address] [place] [address]. [place] [address] Care Team Providers Name Role Phone Toña Jones MD Primary Care Provider Ingrid Santana RN Unavailable Unavailable Momo Forbes Primary Care Provider Encounter Details Date Type Department Care Team Description 05/20/2010 Historic Results [facility] Provider, MD Marcela Social History Tobacco Use [...] filedocumented in this encounter Care Teams Security Operations Engineer Relationship Specialty Start Date End Date Toña Jones MD PCP - General Nephrology 11/25/11 01/01/14 Momo Forbes PCP - General Family Practice 01/02/[address] [address] Siers, Ingrid A, RN Registered Nurse Transplant 02/10/12 documented as of this encounter
--- OUTSIDE RECORDS SUMMARY | 2022-06-23 11:32 | XMS_ITS | Encounter Summary ---
:1950 Author Organization [place] Address [address] [place] [address]. [place] [address] Care Team Providers Name Role Phone Toña Jones MD Primary Care Provider Ingrid Santana RN Unavailable Unavailable Momo Forbes Primary Care Provider Encounter Details Date Type Department Care Team Description 01/02/2008 Historic Results [facility] Provider, MD Marcela Social History Tobacco [...] on filedocumented in this encounter Care Teams Front Office Attendant Relationship Specialty Start Date End Date Toña Jones MD PCP - General Nephrology 11/25/11 01/01/14 Momo Forbes PCP - General Family Practice 01/02/[address] [address] Siers, Ingrid A, RN Registered Nurse Transplant 02/10/12 documented as of this encounter
--- OUTSIDE RECORDS SUMMARY | 2022-06-23 11:32 | XMS_ITS ---
:1950 Author Organization [place] Address [address] [place] [address] Care Team Providers Name Role Phone Momo Forbes Primary Care Provider Joseph Quintana MD Unavailable Transplant [facility] [place] [facility] [place] - MNUMOrgan Received: Right KidneyTransplanted on 02/02/2014Marked as Active Follow-up on 02/02/2014 Kidney CoordinatorCHAPO Durhamhone: N/AFax: N/AEmail: N/A [place] Organ Diagnosis Organ Primary Contributory Kidney Diabetes Mellitus - Type II Infection History Noted Survival Infection Treatment Organism Resolved 09/18/2020 6 years 7 months Gram-negative Surgery, Medical bacterial infection management 09/17/2020 6 years 7 months Bacterial infection Antibiotics Donor Information Organ ABO Source Meets Risk HLA Match Mismatches [facility] Criteria Right Kidney A1 DBD No A: T cell Transplanted B: (Negative) DR: B cell (Negative) Right Kidney Donor Serology Results Anti-CMV EBV IgG Anti-HBcAb HBsAg HBV DNA Anti-HCV CMV IgG: EBV VCA HBC Total: HBsAg: Negative No HCV: Nega tive Positive IgG: Negative results CMV Nucleic Positive on file Acid: Positive Anti-HIV I/II Anti-HTLV RPR/VDRL EBV IgM HBsAb EBNA HIV-1: Negative I/II RPR: Negative EBV VCA IgM: No No results on HTLV: Not Negative results file Done on file SARS CoV-2 Toxoplasma No results on file No results on file Care Team Name Role Phone Fax Email Gretta Peacock RN Kidney Coordinator N/A N/A N/A G German Jones MD Referring Physician [phone] [email or web address] Post-Transplant Pre-Transplant Admitted: 02/02/2014 Referred: 12/07/2011 Transplanted: 02/02/2014 Evaluation began: 02/08/2012 Discharged: 02/08/2014 Committee: 02/16/2012 Center waitlisted: 02/18/2012 Dialysis History Dialysis History Start End Type Comments Center 09/06/2011 02/02/2014 Hemo Dialysis Days per week -- [facility] ([facility] Dialysis Center Information Center Phone Fax Address [facility] [phone] [address] (ESRD) [facility] [phone]
--- OUTSIDE RECORDS SUMMARY | 2022-06-23 11:32 | XMS_ITS | Encounter Summary ---
:1950 Author Organization [place] Address [address] [place] [address]. [place] [address] Care Team Providers Name Role Phone Toña Jones MD Primary Care Provider Ingrid Santana RN Unavailable Unavailable Momo Forbes Primary Care Provider Encounter Details Date Type Department Care Team Description 12/13/2005 Historic Results [facility] Provider, MD Marcela Social History Tobacco Use [...] on filedocumented in this encounter Care Teams Dulser Relationship Specialty Start Date End Date Toña Jones MD PCP - General Nephrology 11/25/11 01/01/14 Momo Forbes PCP - General Family Practice 01/02/[address] [address] Siers, Ingrid A, RN Registered Nurse Transplant 02/10/12 documented as of this encounter
--- OUTSIDE RECORDS SUMMARY | 2022-06-23 11:32 | XMS_ITS | Encounter Summary ---
:1950 Author Organization [place] Address [address] [facility] [place] [address] Care Team Providers Name Role Phone Toña [...] filedocumented in this encounter Care Teams Under Seal Operator Relationship Specialty Start Date End Date Toña Jones MD PCP - General Nephrology 11/25/11 01/01/14 Momo Forbes PCP - General Family Practice 01/02/14 [facility] [address] [place] [address] Ingrid Santana, RN Registered Nurse Transplant 02/10/12 documented as of this encounter
--- OUTSIDE RECORDS SUMMARY | 2022-06-23 11:32 | XMS_ITS | Encounter Summary ---
:1950 Author Organization [place] Address [address] [facility] [place] [address] Care Team Providers Name Role Phone Toña [...] Shearer Relationship Specialty Start Date End Date Toña Jones MD PCP - General Nephrology 11/25/11 01/01/14 Momo Forbes PCP - General Family Practice 01/02/14 [facility] [address] [place] [address] Ingrid Santana, RN Registered Nurse Transplant 02/10/12 documented as of this encounter
--- OUTSIDE RECORDS SUMMARY | 2022-06-23 11:32 | XMS_ITS | Encounter Summary ---
:1950 Author Organization [place] Address [address] [place] [address]. [place] [address] Care Team Providers Name Role Phone Toña Jones MD Primary Care Provider Ingrid Santana RN Unavailable Unavailable Momo Forbes Primary Care Provider Encounter Details Date Type Department Care Team Description 01/14/[address] [facility] Provider, MD Marcela Social History Tobacco [...] on filedocumented in this encounter Care Teams Fisheries Officer Relationship Specialty Start Date End Date Toña Jones MD PCP - General Nephrology 11/25/11 01/01/14 Momo Forbes PCP - General Family Practice 01/02/[address] [address] Siers, Ingrid A, RN Registered Nurse Transplant 02/10/12 documented as of this encounter
--- OUTSIDE RECORDS SUMMARY | 2022-06-23 11:32 | XMS_ITS | Encounter Summary ---
:1950 Author Organization [place] Address [address] [place] [address]. [place] [address] Care Team Providers Name Role Phone Toña Jones MD Primary Care Provider Ingrid Santana RN Unavailable Unavailable Momo Forbes Primary Care Provider Encounter Details Date Type Department Care Team Description 01/12/2010 Historic Results [facility] Provider, MD Marcela Social History Tobacco [...] on filedocumented in this encounter Care Teams Gyn Physician Relationship Specialty Start Date End Date Toña Jones MD PCP - General Nephrology 11/25/11 01/01/14 Momo Forbes PCP - General Family Practice 01/02/[address] [address] Siers, Ingrid A, RN Registered Nurse Transplant 02/10/12 documented as of this encounter
--- OUTSIDE RECORDS SUMMARY | 2022-06-23 11:32 | XMS_ITS | Encounter Summary ---
:1950 Author Organization [place] Address [address] [place] [address]. [place] [address] Care Team Providers Name Role Phone Toña Jones MD Primary Care Provider Ingrid Santana RN Unavailable Unavailable Momo Forbes Primary Care Provider Encounter Details Date Type Department Care Team Description 04/12/2007 Historic Results [facility] Provider, MD Marcela Social History Tobacco Use [...] on filedocumented in this encounter Care Teams Serology Technician Relationship Specialty Start Date End Date Toña Jones MD PCP - General Nephrology 11/25/11 01/01/14 Momo Forbes PCP - General Family Practice 01/02/[address] [address] Siers, Ingrid A, RN Registered Nurse Transplant 02/10/12 documented as of this encounter
--- OUTSIDE RECORDS SUMMARY | 2022-06-23 11:32 | XMS_ITS | Encounter Summary ---
:1950 Author Organization [place] Address [address] [place] [address]. [place] [address] Care Team Providers Name Role Phone Toña Jones MD Primary Care Provider Ingrid Santana RN Unavailable Unavailable Momo Forbes Primary Care Provider Encounter Details Date Type Department Care Team Description 06/05/2008 Historic Results [facility] Provider, MD Marcela Social History Tobacco Use [...] on filedocumented in this encounter Care Teams Visitor Services Technician Relationship Specialty Start Date End Date Toña Jones MD PCP - General Nephrology 11/25/11 01/01/14 Momo Forbes PCP - General Family Practice 01/02/[address] [address] Siers, Ingrid A, RN Registered Nurse Transplant 02/10/12 documented as of this encounter
--- OUTSIDE RECORDS SUMMARY | 2022-06-23 11:32 | XMS_ITS | Encounter Summary ---
:1950 Author Organization [place] Address [address] [place] [address]. [place] [address] Care Team Providers Name Role Phone Toña [...] filedocumented in this encounter Care Teams General Farm Manager Relationship Specialty Start Date End Date Toña Jones MD PCP - General Nephrology 11/25/11 01/01/14 Momo Forbes PCP - General Family Practice 01/02/[address] [address] Siers, Ingrid A, RN Registered Nurse Transplant 02/10/12 documented as of this encounter
--- OUTSIDE RECORDS SUMMARY | 2022-06-23 11:32 | XMS_ITS | Encounter Summary ---
:1950 Author Organization [place] Address [address] [place] [address] Care Team Providers Name Role Phone Toña [...] - HIM SCAN - 11/02/2005 8:27 AM OFFICE WORKFORCE PLANNER ARCHIVE LAB RESULT - HIM SCAN - 11/02/2005 8:25 AM OFFICE WORKFORCE PLANNER ARCHIVE documented in this encounter Results LAB RESULT - HIM SCAN - ARCHIVE (11/02/2005 8:27 AM OFFICE WORKFORCE PLANNER) Specimen (Source) Anatomical Location Collection Method / Collectio n Time Received Time / Laterality Volume Narrative This result has an attachment that is no t available. Marcela Provider LAB - BLOOD ORDERABLES LAB RESULT - HIM SCAN - ARCHIVE (11/02/2005 8:25 AM OFFICE WORKFORCE PLANNER) Specimen (Source) Anatomical Location Collection Method / Collectio n Time Received Time / Laterality Volume Narrative This result has an attachment that is no t available. Marcela Provider LAB - BLOOD ORDERABLES documented in this encounter Visit Diagnoses Not on filedocumented in this encounter Care Teams Trial Judge Relationship Specialty Start Date End Date Toña Jones MD PCP - General Nephrology 11/25/11 01/01/14 Momo Forbes PCP - General Family Practice 01/02/[address] [address] Ingrid Santana, RN Registered Nurse Transplant 02/10/12 documented as of this encounter
--- OUTSIDE RECORDS SUMMARY | 2022-06-23 11:32 | XMS_ITS | Encounter Summary ---
:1950 Author Organization [place] Address [address] [facility] [place] [address] Care Team Providers Name Role Phone Unavailable Primary Care Provider Unavailable Encounter Details Date Type Department Care Team Description 07/30/2009 Results [facility] Results [address] [place] [address] [place] [address] Social History Tobacco Use Types Packs/Day Years Used Date Smoking Tobacco: Never Assessed Sex Assigned at Date Recorded Not on file documented as of this encounter Plan of Treatment Not on filedocumented as of this encounter Procedures Procedure Name Priority Date/Time Associated Diagnosis [facility] RT DUPLEX Routine 07/30/2009 12:32 PM Results for this EXTREM VENOUS,UNI ELECTRICIAN SHIP procedure are in OR LTD the results section. documented in this encounter Results RT DUPLEX EXTREM VENOUS,UNI OR LTD (07/30/2009 12:32 PM ELECTRICIAN SHIP) Anatomical Region Laterality Modality Other Specimen (Source) Anatomical Collection Method Collection Time Re ceived Time Location / / Volume Laterality 07/30/2009 12:32 PM ELECTRICIAN SHIP Impressions 07/30/2009 4:21 PM ELECTRICIAN SHIP ULTRASOUND VENOUS LOWER EXTREMITY UNILAT ERAL RIGHT [...] popliteal cyst. Florin Randolph SPECIAL IMAGING STUDIES documented in this encounter Visit Diagnoses Not on filedocumented in this encounter
== END 2022-06-23 11:16 | disposition home or self-care (01) ==
LOC: WOUND 11:15
PROVIDERS: PCP Family Medicine; Visit Provider Surgery
DX: L89.313 Pressure ulcer of right buttock, stage 3 (principal)
CPT/HCPCS: 99213

== ENCOUNTER 2022-06-28 13:04 | Outpatient (CLI) | payer MEDICARE, BC, SELFPAY ==
--- OUTSIDE RECORDS SUMMARY | 2022-06-28 13:13 | XMS_ITS | Continuity of Care Document ---
:1950 Author Organization [facility] Address [address] [address] [place] [address] Phone Care Team Providers Name Role Phone [...] Information [facility], [address] [address], [place], [place], [id number], [place] tel:[phone] DEMARCO Cross No Darling MICHELE Referring [facility] Information [place]. Pro vider: [facility], Hosp [address] [place], [address], [address] [place], [address] [facility] [address], [place], [place], [facility] [id number], [place], [address], [place] [id number], [place] tel:+ . , [place], [id number] tel:[phone] . tel:[phone] [facility] Pancreas Nesset HOUSE COORDINATOR [facility] cyst Joan. [address] [facility], [address] [place], [address], [address], [place] [facility], [place], [place], [id number], [id number], [place]. tel:+ tel:[phone] [facility] [place] [facility] December- Nesset HOUSE COORDINATOR [facility] cyst Joan. [address] [place], 1 [place], [address], [address], [facility], s, [place], [place], [id number], [id number], [place]. tel: tel:[phone] [facility] [place] [facility] Sep- Nesset HOUSE COORDINATOR [facility] cyst Joan. [address] [facility], [address] [place] [address] [place], [address], [address], [facility], s, [place], [id number], [id number], [place]. tel: tel:[phone] [facility]sqt [facility] Cross No Sep- Nesset HOUSE COORDINATOR Referring Hosp-da E&m [facility] Information Joan. 20 09 Provider: Sh[facility], Hosp [address] [place] [address] [place], Aren FINISH REPAIRER [address], [address], [place], [address] [facility], [place], [place], [place], [id number], [id number], [place], [address]. [place]. tel:[phone] tel: tel:[phone] Init Hosp-da [facility] Cross No Aug- Prem MICHELE Referri ng E&m Mod [facility] Information Angelina. [address] P rovider: [facility], Hosp [address] [place] [address] NE, Arendt FINISH REPAIRER [address], [address], [place], [address], [place], [place], [id number], [id number], [place], [address]. [place]. tel:+[phone] tel: tel:[phone] Family History Family Member Type Diagnosis Age [...]
--- OUTSIDE RECORDS SUMMARY | 2022-06-28 13:13 | XMS_ITS | Clinical Summary ---
:1950 Author Organization [facility] [place] [address] Care Team Providers Name Role Phone Momo Forbes MD Primary Care Provider [phone] Allergies No known active allergies Medications [...] Okay to use [facility] Right foot wound debridement with application of integra bilayer matrix and wound vac, 10.0 cm x 5.0 cm x 0.6 cm. M- W-F dressing changes gabapentin Take 1 capsule 21 capsule 0 09/26/19 Act jo (NEURONTIN) 300 mg by mouth 3 times 21 capsuleIndications: daily. neuropathic pain Indications: neuropathic pain durable medical Custom MANOKOTAK boot 1 Each 0 11/27/19 Active equipment [...] (PROTONIX) 40 mg (40 mg) by mouth 022 delayed-release two times daily. tabletIndications: Gastrointestinal hemorrhage, unspecified gastrointestinal hemorrhage type amLODIPine (NORVASC) Take 1 Tablet (5 60 Tablet 0 06/20/20 Active 5 mg mg) by mouth two tabletIndications: times daily. Hypertension albuterol HFA Inhale 2 Puffs 1 Each 0 06/20/20 A ctive (PRO-AIR; VENTOLIN; by mouth every 4 PROVENTIL) 90 hours if needed mcg/actuation for Wheezing 1st inhalerIndications: choice. Cough in adult warfarinIndications: As directed 5 mg 7 Each [...] 06/06/20 (DECADRON) 6 mg mg) by mouth 22 022 tabletIndications: once daily with Pneumonia due to a meal for 7 COVID-19 virus days. warfarinIndications: As directed. 7 Each 0 06/20/20 Discontinued Chronic atrial (Reor toribio fibrillation (HC) (E -cancel not sent)) benzonatate Take 1 Capsule 21 Capsule 0 06/20/20 Ex pired (TESSALON) 100 mg (100 mg) by 022 capsuleIndications: mouth 3 times Cough in adult daily if needed for Cough for up to 7 days. Active Problems Problem Noted Date Pneumonia due [...] Date of : 1950 Age: 72 y.o. [id number] Primary Physician: Momo Forbes MD Admission Date: 06/15/2022 Discharge Date: 06/20/2022 He will be discharged from [facility] to home. 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 albuterol HFA 90 mcg/actu ation inhaler [...] and I nstructions AMB CONSULT TO HOME senior care Health Certification/F dharmesh to Face Attestation: I certify that this patient is confined to his/her home and needs intermittent prison care, physical therapy and/or speech therapy or continues to need occupational therapy. A plan of care has been established and will be reviewed periodically by a physician or allowed practitioner. Services will be furnished while the patient is under the care of a physician or allowed practitioner. The beni ent had a qesx-zl-mayy encou nter with a physician or an [...] follow up with the [facility] in [place] on June 22 at 10:50 with Alexandria Banuelos. [facility] [place] [facility] ( ) . Please call [...] scarlett w up appointment(s) Momo Forbes MD [facility] follow up May resume ARB med if [...] medical emergency. Why were you at the [facility]? 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 HOSPITALIST DISCHARGE SUMMAR Y ? ? [facility] Admission Date: 06/01/2022 Discharge Date: 06/05/2022 Discharge Plan: Diego Bryson agee was discharged to home. Principal Diagnosis Pneumonia due to COVID-19 vi [facility] Hospital Problem List Principal Problem: Pneumonia due [...] post renal transplant in 2013 at the [facility] on CellCept and Prograf who presents with [...] transplant team because he is inpatient per [facility]'s policy given the EUA stipulations. 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 [address] [address] ?? cefuroxime axetil 500 mg tablet ?? dexAMETHasone 6 mg tablet Pertinent Findings / Procedu res First weight: (!) 148.5 kg ( 327 lb 6.4 oz) (Weighed with prostetic leg on - prostetic leg adds 20 lbs) (06/01/22 2801) Last weight: (!) 148.4 kg (327 lb 3.2 oz) (06/02/22 4458) EXAM: Diego is alert, no acu te [...] 4.3 4.7 CHLORIDE -- 110 112 H [id number] -- BUN -- 42 H 36 H [...] Component Value U nits Date/Time URINE CULTURE [[id number]] (Abnormal) (Susceptibility) Collected: 06/02/2244 Lab Status: Final [...] or P.mirablis. Linear View INFLUENZA A/B/H1N1 PCR [[id number]] (Normal) Collected: 06/02/2238 Lab Status: Final result Sp ecimen: Other from Nasopharyngeal Updated: 06/02/22122 INFLUENZA A PCR NOT Detecte d INFLUENZA B PCR NOT Detecte d COVID 19 [[id number]] (Abno rmal) Collected: 06/02/2238 Lab Status: Final [...] terminated or revoked sooner. BLOOD CULTURE X2 [[id number]] (Normal) Collected: 06/02/2224 Lab Status: Preliminary res ult Specimen: Blood Updated: 06/02/22506 CULTURE No growth to date. BLOOD CULTURE X2 [[id number]] (Normal) Collected: 06/02/2221 Lab Status: Preliminary [...] Duration 110 QT 362 QTc 415 R [place] 26 Consultants None Curbside with his transplant team at the [facility]. Diet / Activity / Follow-Up After Discharge Orders and I nstructions COVID-19 Discharge Informat ion: Discharge instructions for COVID test positive You were tested for COVID-19 and your test result was positive. Additional Information When it is safe to return to work, school, or daycare: If you or others in your [facility] are working, please reach out to your Employer for further direction on work policies. For children who attend scho ol or day care, refer your child's school or day care policy for when its safe to return, You can also refer to the [facility] guidelines. Go to: https://www.[facility]./di ranulfoes/coronavirus/schools/exguide.pdf Call 911 if you have a [...] Centers for Disease Control (CDC) - https://www.cdc.gov/coronavirus/2019-nCoV/index.html [facility] ([facility]) - https://www.[facility]./diseases/coronavirus/index.html For children who attend scho ol or day care, refer to the following [facility] guidelines: Go to: https://www.[facility]./diseases/coronavirus/schools/exguide.pdf [facility]'s website www.[facility] emergency and Positioning and Breathing Exercises Positioning: Changing [...] or crutches as directed. Carry a phone ([employer] or [employer]) with you at all times in case [...] medical emergency. Why were you at the [facility]? The reason(s) you were in [facility] is/are COVID pneumonia and a [...] examined today. Víctor Schuler DO Hospitalist, [facility] ? ? [phone] Cc: [facility] Renal Transplant Team 06/01/2022 Travel [...] Visit Angie Chatterjee, DAMIAN [address] [place] [address] (Wo rk) Health Maintenance Due Date Last [...] Christoph 140/90 Medical Devices Implanted Type Area Volumetric Weigher Device Shelf Model / Identifier Expiration Date Ser ial / Lot Drsg Wound 4x5in Matrix Bilayer Right: 08/21/2020 [id number] / Implanted: Qty: 1 on 09/23/2020 by Araceli Fowler DPM at [facility] / [id number] Description: DRSG WOUND 4X5IN MATRIX JYOTI BHAVIK [...] AM CDT 11:14 AM CDT [facility] CHEMISTRY Performing Organization Address City/State/ZIP Code Phon e Number [facility] [address] [address] (ABNORMAL) CBC WITH AUTO DIFFERENTIAL (06/20/2022 5:44 AM CDT)Only the most recent of11 resultswithin the time period is included. [facility] Method Time Signature WHITE BLOOD 6.4 [...] AM CDT AM CDT Mistid Drea Bet[facility] HEMATOLOGY Performing Organization Address City/State/ZIP Code Phon e Number [facility] [address] [address] (ABNORMAL) PROTIME-INR (06/20/2022 5:44 AM CDT)Only the most recent of5 results within the time period is included. P athologist Signature INR 1.8 (H) <1.3 06/20/2022 [place] 6:22 AM [facility] PROTIME 20.1 (H) 12.0 - 13.8 06/20/2022 [place] sec 6:22 AM T [facility] Specimen Anatomical Collection Method / Collection Time Recei laura Time (Source) Location / Volume Laterality Blood BLOOD SPECIMEN / Venipuncture / 06/20/2022 5:44 2021 6:12 Unknown Unknown AM CDT AM CDT [facility] - 06/20/2022 6:22 AM C DT [...] the patient is on UFH. [facility] HEMATOLOGY Performing Organization Address City/State/ZIP Code Phon e Number [facility] [address] [address] (ABNORMAL) BASIC METABOLIC PANEL (06/20/2022 5:44 AM T)Only the most recent of 6 resultswithin the time period is included. [facility] SODIUM 138 135 - 145 06/20/2022 [place] mmol/L 6:35 AM [facility] POTASSIUM 4.3 3.5 - 5.0 06/20/2022 [place] mmol/L 6:35 AM [facility] CHLORIDE 113 (H) 98 - 110 06/20/2022 [place] mmol/L 6:35 AM [facility] CO2,TOTAL 21 21 - 31 06/20/2022 [place] mmol/L 6:35 AM [facility] ANION GAP 4 (L) 5 - 18 06/20/2022 [place] 6:35 AM [facility] GLUCOSE 163 (H) 65 - 100 06/20/2022 [place] mg/dL 6:35 AM [facility] CALCIUM 8.9 8.5 - 10.5 06/20/2022 [place] mg/dL 6:35 AM [facility] BUN 51 (H) 8 - 25 06/20/2022 [place] mg/dL 6:35 AM [facility] CREATININE 2.01 (H) 0.72 - 06/20/2022 [place] 1.25 mg/dL 6:35 AM [facility] BUN/CREAT RATIO 25 (H) 10 - 20 06/20/2022 [place] 6:35 AM [facility] eGFR 35 (L) >90 06/20/2022 [place] mL/min/1.7 6:35 AM [facility] 3m2 Comment: As of 2021, eGFR [...] 6:12 Unknown Unknown AM CDT AM CDT [facility] CHEMISTRY Performing Organization Address [facility] e [facility] [address] [address] (ABNORMAL) RED CELL MORPHOLOGY (06/19/2022 5:52 AM CDT)Only the most recent of7 resultswithin the time period is included. [facility] [employer] Method Time Signature ELLIPTOCYTES Few 06/19/2022 [place] 7:57 AM CDT HOSPITAL RBC COMMENT Present (A) RBC morphology 06/19/2022 [place] appears 7:57 AM CDT HOSPITAL normal, RBC morphology within normal limits for newborns. Specimen Anatomical Collection Method / Collection Time Recei laura Time (Source) Location / Volume Laterality Blood BLOOD SPECIMEN / Venipuncture / 06/19/2022 5:52 2021 6:44 Unknown Unknown AM CDT AM CDT [facility] HEMATOLOGY Performing Organization Address [facility] [address] [address] (ABNORMAL) PLATELET ESTIMATE (06/19/2022 5:52 AM CDT)Only the most recent of7 resultswithin the time period is included. [facility] [employer] Method Time Signature PLATELET Decreased (A) Adequate, No 06/19/2022 [place] ESTIMATE estimate 7:57 AM CDT HOSPITAL Specimen Anatomical Collection Method / Collection Time Recei laura Time (Source) Location / Volume Laterality Blood BLOOD SPECIMEN / Venipuncture / 06/19/2022 5:52 2021 6:44 Unknown Unknown AM CDT AM CDT [facility] HEMATOLOGY Performing Organization Address [facility] e [facility] [address] [address] PROCALCITONIN (06/19/2022 5:52 AM CDT)Only the most recent of2 resultswithin the time period is included. P athologist Signature PROCALCITONIN 0.05 <0.50 ng/ml 06/19/2022 [place] 9:45 AM CDT HOSPITAL Specimen Anatomical Collection Method / Collection Time Recei laura Time (Source) Location / Volume Laterality Blood BLOOD SPECIMEN / Venipuncture / 06/19/2022 5:52 2021 6:44 Unknown Unknown AM CDT AM CDT Narrative [facility] - 06/19/2022 9:45 AM C DT [...] concentrations <2.0 ng/mL are obtained. [facility] SEND OUTS Performing Organization Address City/State/ZIP Code Phon e Number [facility] [address] [address] XR CHEST 1 VIEW PORTABLE (06/18/2022 9:15 AM CDT)Only the most recent of4 resultswithin the time period is included. Anatomical Region Laterality Modality HEART, THORAX, CHEST Digital Radiography Specimen (Source) Anatomical Location Collection Method / Collectio n Time Received Time / Laterality Volume Narrative This result has an attachment that is no t available. Mistitimmy Drea [facility] GENERAL IMAGING MAGNESIUM (06/17/2022 6:25 AM CDT)Only [...] Organization Address City/State/ZIP Code Phon e Number [facility] [address] [place] [address] (ABNORMAL) COMP METABOLIC PANEL (06/17/2022 6:25 AM CDT)Only the most recent of5 resultswithin the time period is included. [facility] gist Method Time Signature SODIUM 137 [...] - 10.5 06/17/2022 [place] mg/dL 7:01 AM [facility] BUN 53 (H) 8 - 25 06/17/2022 [place] mg/dL 7:01 AM [facility] CREATININE 2.01 (H) 0.72 - 06/17/2022 [place] 1.25 mg/dL 7:01 AM [facility] BUN/CREAT RATIO 26 (H) 10 - 20 06/17/2022 [place] 7:01 AM [facility] ALBUMIN 2.6 (L) 3.2 - 4.6 06/17/2022 [place] g/dL 7:01 AM [facility] PROTEIN,TOTAL 5.3 (L) 6.0 - 8.0 06/17/2022 [place] g/dL 7:01 AM [facility] GLOBULIN 2.7 2.0 - 3.7 06/17/2022 [place] g/dL 7:01 AM [facility] A/G RATIO 1.0 1.0 - 2.0 06/17/2022 [place] 7:01 AM [facility] BILIRUBIN,TOTAL 1.0 0.2 - 1.2 06/17/2022 [place] mg/dL 7:01 AM [facility] ALK PHOSPHATASE 81 50 - 136 06/17/2022 [place] IU/L 7:01 AM [facility] ALT (SGPT) 17 8 - 45 06/17/2022 [place] IU/L 7:01 AM [facility] AST (SGOT) 10 2 - 40 06/17/2022 [place] IU/L 7:01 AM [facility] eGFR 35 (L) >90 06/17/2022 [place] mL/min/1.7 7:01 AM [facility] 3m2 Comment: As of 2021, eGFR [...] CDT Larry HERNANDEZ CHEMISTRY Performing Organization Address City/[facility] e Number [address] [address] ECHO COMPLETE WO CONTRAST (06/16/2022 4:09 PM [...] CDT Larry HERNANDEZ CHEMISTRY Performing Organization Address [facility] e Number [address] [address] (ABNORMAL) Serum Glucose (06/15/2022 11:59 PM CDT)Only [...] Kyle Fontenot DO CHEMISTRY Performing Organization Address City/[facility]/ZIP [facility] Phon e Number [address] [address] APTT (06/15/2022 11:59 PM CDT)Only the most recent of2 resultswithin the time period is included. athologist Signature APTT 26 24 - 33 sec 06/16/2022 [place] 12:21 AM CDT HOSPITAL Specimen Anatomical Collection Method / Collection Time Recei laura Time (Source) Location / Volume Laterality Blood BLOOD SPECIMEN / Venipuncture / 06/15/2022 11:59 06/16 Unknown Unknown PM CDT 12:10 AM CDT Narrative [facility] - 06/16/2022 12:21 AM CDT Therapeutic Range: 70-95 seconds Larry HERNANDEZ HEMATOLOGY Performing Organization Address City/[facility]/ZIP [facility] e [address] [address] (ABNORMAL) OCCULT BLOOD IFOBT STOOL (06/15/2022 9:14 PM CDT) [facility] gist Method Time Signature STOOL BLOOD Positive (A) Negative 06/15/2022 [place] ,IFOBT 9:24 PM CDT HOSPITAL Specimen Anatomical Collection Method Collection Time Receive d Time (Source) Location / / Volume Laterality Stool STOOL SPECIMEN / Non-Blood / 06/15/2022 9:14 PM 06/15 9:19 Unknown Unknown CDT PM CDT Kyle Fontenot DO LABORATORY Performing Organization Address City/[facility] e [address] [address] (ABNORMAL) PLATELET COUNT (06/15/2022 4:58 PM CDT) athologist Signature PLATELET COUNT 77 (L) 140 - 440 06/15/2022 [place] thou/cu mm 5:28 PM CDT HOSPITAL MPV 06/15/2022 [place] 5:28 PM CDT HOSPITAL Comment: Unable to be determined Specimen Anatomical Collection Method / Collection Time Recei laura Time (Source) Location / Volume Laterality Blood BLOOD SPECIMEN / Venipuncture / 06/15/2022 4:58 2021 5:03 Unknown Unknown PM CDT PM CDT Narrative [facility] - 06/15/2022 5:28 PM C DT Obtain before initiating IV heparin therapy if not done within previous 24 hours. Obtain before initiating IV heparin ther apy if not done within previous 24 hours. Obtain before initiating IV heparin ther apy if not done within previous 24 hours. Larry GARCÍA HEMATOLOGY Performing Organization Address [facility]/[address] [address] (ABNORMAL) HEMOGLOBIN (06/15/2022 4:58 PM CDT)Only the most recent of2 results within the time period is included. athologist Signature HEMOGLOBIN 12.5 (L) 13.5 - 06/15/2022 [place] 17.5 g/dL 5:08 PM CDT HOSPITAL MCV 83 80 - 100 06/15/2022 [place] fL 5:08 PM CDT HOSPITAL Specimen Anatomical Collection Method / Collection Time Recei laura Time (Source) Location / Volume Laterality Blood BLOOD SPECIMEN / Venipuncture / 06/15/2022 4:58 2021 5:03 Unknown Unknown PM CDT PM CDT [facility] - 06/15/2022 5:08 PM C DT Obtain before initiating IV heparin therapy if not done within previous 24 hours. Obtain before initiating IV heparin ther apy if not done within previous 24 hours. Obtain before initiating IV heparin ther apy if not done within previous 24 hours. Larry GARCÍA HEMATOLOGY Performing Organization Address [facility]/[address] [address] HEMATOCRIT (06/15/2022 4:58 PM CDT) athologist Signature HEMATOCRIT 38.8 37.0 - 53.0 06/15/2022 [place] % 5:10 PM CDT HOSPITAL Specimen Anatomical Collection Method / Collection Time Recei laura Time (Source) Location / Volume Laterality Blood BLOOD SPECIMEN / Venipuncture / 06/15/2022 4:58 2021 5:03 Unknown Unknown PM CDT PM CDT [facility] - 06/15/2022 5:10 PM C DT Obtain before initiating IV heparin therapy if not done within previous 24 hours. Obtain before initiating IV heparin ther apy if not done within previous 24 hours. Obtain before initiating IV heparin ther apy if not done within previous 24 hours. Larry HERNANDEZ HEMATOLOGY Performing Organization Address [facility]/[address] [address] (ABNORMAL) BUN (06/15/2022 4:58 PM CDT) athologist Signature BUN 65 (H) 8 - 25 06/15/2022 [place] mg/dL 5:24 PM CDT HOSPITAL Specimen Anatomical Collection Method / Collection Time Recei laura Time (Source) Location / Volume Laterality Blood BLOOD SPECIMEN / Venipuncture / 06/15/2022 4:58 2021 5:03 Unknown Unknown PM CDT PM CDT Larry HERNANDEZ CHEMISTRY Performing Organization Address [facility]/[address] [address] (ABNORMAL) CREATININE (06/15/2022 4:58 PM CDT)Only the [...] CDT Larry HERNANDEZ CHEMISTRY Performing Organization Address City/[facility] Phon e Number [facility] [address] [address] US VENOUS LOWER EXTREMITY BILATERAL (06/15/2022 4:05 [...] of3 resultswithin the time period is included. [facility] Time Signature D-DIMER,QUANT 1.65 See Comment 06/15/2022 [place] ITATIVE / FEU 3:25 PM CDT HOSPITAL mcg/mL D-DIMER Abnormal (A) 06/15/2022 [place] INTERP 3:25 PM CDT HOSPITAL Specimen Anatomical Collection Method / Collection Time Recei laura Time (Source) Location / Volume Laterality Blood BLOOD SPECIMEN / Venipuncture / 06/15/2022 3:01 2021 3:09 Unknown Unknown PM CDT PM CDT Narrative [facility] - 06/15/2022 3:25 PM C DT [...] range Larry HERNANDEZ HEMATOLOGY Performing Organization Address City/[facility]/ZIP Code Phon e Number [facility] [address] [address] (ABNORMAL) IRON PLUS IRON BINDING CAP (06/15/2022 5:46 AM CDT) Analysis Performed At Patho logist Time Signature IRON 23 (L) 31 - 144 06/17/2022 [facility] ug/dL 7:13 PM CDT LABORATORY-J[facility] TRAL LABORATORY UIBC 154 06/17/2022 [facility] (UNSATURATED) 7:13 PM CDT LABORATORY-[facility] LABOR[facility]ORY IRON BINDING 177 (L) 245 - 400 06/17/2022 [facility] [employer] [facility]ACITY ug/dL 7:13 PM CDT LABORATORY-[facility] TRAL LABORATORY IRON,% 13 (L) 20 - 55 % 06/17/2022 [facility] SAT[facility] 7:13 PM CDT LABORATORY-[facility] TRAL LABORATORY Specimen Anatomical Collection Method / Collection Time Recei laura Time (Source) Location / Volume Laterality Blood BLOOD SPECIMEN / Venipuncture / 06/15/2022 5:46 2021 6:01 Unknown Unknown AM CDT AM CDT Kyle Fontenot DO CHEMISTRY Performing Organization Address City/[facility] Phon e Number [facility] [employer] [address] [place] [address] [place] [address] LABORATORY-CENTRAL 2000 LABORATORY (ABNORMAL) PTH,INTACT (06/15/2022 5:46 AM CDT) P athologist Signature PTH,INTACT 489.0 (H) 14.5 - 06/16/2022 [facility] 87.1 pg/mL 3:01 PM CDT LABORATORY-[facility] TRAL LABORATORY CALCIUM 8.6 8.5 - 10.5 06/16/2022 [facility] mg/dL 3:01 PM CDT LABORATORY-[facility]ACK[facility] TRAL LABORATORY Specimen Anatomical Collection Method / Collection Time Recei laura Time (Source) Location / Volume Laterality Blood BLOOD SPECIMEN / Venipuncture / 06/15/2022 5:46 2021 6:01 Unknown Unknown AM CDT AM CDT Kyle Fontenot DO SEND OUTS Performing Organization Address City/[facility] Phon e Number [facility] [address] [place] [address] [place] [address] LABORATORY-CENTRAL 2000 LABORATORY (ABNORMAL) FERRITIN (06/15/2022 5:46 AM CDT)Only the most recent of2 results within the time period is included. P athologist Signature FERRITIN 547.6 (H) 22.0 - 06/17/2022 [facility] 275.0 7:22 PM CDT LABORATORY-CENT ng/mL RAL LABORATORY Specimen Anatomical Collection Method / Collection Time Recei laura Time (Source) Location / Volume Laterality Blood BLOOD SPECIMEN / Venipuncture / 06/15/2022 5:46 2021 6:01 Unknown Unknown AM CDT AM CDT Kyle Fontenot DO CHEMISTRY Performing Organization Address City/State/ZIP Code Phon e Number [facility] [address] [place] [address] LABORATORY-CENTRAL 2000 LABORATORY WHITE BLOOD COUNT (06/15/2022 1:45 AM CDT) P athologist Signature WHITE BLOOD 9.3 4.5 - 11.0 06/15/2022 [place] COUNT thou/cu mm 1:53 AM CDT HOSPITAL Specimen Anatomical Collection Method Collection Time Receive d Time (Source) Location / / Volume Laterality Blood BLOOD SPECIMEN / Butterfly / 06/15/2022 1:45 AM 06/15 1:49 Unknown Unknown CDT AM CDT Narrative [facility] - 06/15/2022 1:53 AM C DT WBC MUST ALSO BE ORDERED, [id number] [facility] HEMATOLOGY Performing Organization Address City/[facility]/ZIP Code Phon e Number [facility] [address] [address] (ABNORMAL) DIFFERENTIAL (06/15/2022 1:45 AM CDT) Analysis [...] 06/15 1:49 Unknown Unknown CDT AM CDT [facility] - 06/15/2022 1:52 AM C DT WBC MUST ALSO BE ORDERED, [id number] Kyle Fontenot DO HEMATOLOGY Performing Organization Address City/[facility]/ZIP Code Phon e Number [facility] [address] [address] (ABNORMAL) Hemoglobin A1C (06/15/2022 1:45 AM CDT)Only the most recent of2 resultswithin the time period is included. Analysis Performed At Patho logist Time Signature HEMOGLOBIN A1C 8.8 (H) <=6.4 % 06/16/2022 [facility] 8:31 PM CDT HOSPITAL (POCT) LABORATORY Specimen Anatomical Collection Method Collection Time Receive d Time (Source) Location / / Volume Laterality Blood BLOOD SPECIMEN / Add On / Unknown 06/15/2022 1:45 AM 1 Unknown CDT 10:06 AM CDT [facility] LABORATORY - 06/16/2022 8:31 PM CDT [...] Organization Address City/State/ZIP Code Phon e Number [facility] LABORATORY SENDOUT INTERNAL ZIP [place] [phone] [address] [facility] SCAN-CARDIAC STRIP (06/15/2022 12:00 AM CDT) Narrative [...] of2 resultswithin the time period is included. [facility] gist Method Time Signature RBC 3-5 (A) 0-2, None 06/14/2022 [place] Seen /HPF 11:[address] [facility] LABORATORY WBC 6-10 (A) 0-2, 3-5, 06/14/2022 [place] None Seen 11:14 PM [facility] /HPF LABORATORY BACTERIA Few None 06/14/2022 [place] Seen, 11:14 PM [facility] Rare, Few LABORATORY Bacteria/ HPF EPITHELIAL Few None 06/14/2022 [place] CELLS Seen, Few 11:14 PM [facility] Epi/HPF LABORATORY Mucus Present 06/14/2022 [place] 11:[address] [facility] LABORATORY WHITE CELL Present (A) (none) 06/14/2022 [place] CLUMPS 11:[address] [facility] LABORATORY Specimen Anatomical Collection Method Collection Time Receive d Time (Source) Location / / Volume Laterality Urine URINE SPECIMEN / Non-Blood / 06/14/2022 10:59 022 Unknown Unknown PM CDT 11:01 PM CDT Rosenda Blancas MD URINE Performing Organization Address City/[facility]/ZIP Code Phon e Number [facility] LABORATORY [address] [place] [address] (ABNORMAL) UA W/ SEDIMENT EXAM REFLEXED PER CRITERIA (06/14/2022 10:59 PM CDT) Only the most recent of2 resultswithin the time period is included. [facility] Method Time Signature COLOR Yellow Yellow Color 06/14/2022 [place] 11:[address] [facility] LABORATORY CLARITY Clear Clear 06/14/2022 [place] Clarity 11:[address] [facility] LABORATORY SPECIFIC 1.025 1.010, 06/14/2022 [place] GRAVITY,URINE 1.015, 11:07 PM [facility] 1.020, 1.025 [place] LAB[facility]AT[facility] PH,URINE 6.0 6.0, 7.0, 06/14/2022 [place] 8.0, 5.5, 11:07 PM [facility] 6.5, 7.5, CENTER 8.5 LABORATORY UROBILINOGEN, Normal Normal EU/dl 06/14/2022 [place] QUALITATIVE 11:[address] [facility] LABORATORY PROTEIN, 100 (A) Negative 06/14/2022 [place] URINE mg/dL 11:[address] [facility] LABORATORY GLUCOSE, >=1000 (A) Negative 06/14/2022 [facility] URINE mg/dL 11:07 [facility] LABORATORY KETONES,URINE Negative Negative 06/14/2022 [facility] mg/dL 11:07 [facility] LABORATORY BILIRUBIN,URI Negative Negative 06/14/2022 [facility] NE 11:[address] [facility] LAB[facility]AT[facility] OCCULT Small (A) Negative 06/14/2022 [place] BLOOD,URINE 11:[address] [facility] LAB[facility]AT[facility] NITRITE Negative Negative 06/14/2022 [facility] 11:[address] [facility] LAB[facility] LEUKOCYTE Negative Negative 06/14/2022 [place] ESTERASE 11:[address] [facility] LABORATORY Specimen Anatomical Collection Method Collection Time Receive d Time (Source) Location / / Volume Laterality Urine URINE SPECIMEN / Non-Blood / 06/14/2022 10:59 022 Unknown Unknown PM CDT 11:01 PM CDT Rosenda Blancas MD URINE Performing Organization Address City/State/ZIP Code Phon e Number [facility] LABORATORY [address] [place] [address] LACTATE VENOUS (06/14/2022 8:41 PM CDT)Only the most recent of4 resultswithin the time period is included. P athologist Signature LACTATE,VENOUS 1.7 0.5 - 2.0 06/14/2022 [place] mmol/L 8:59 PM CDT [facility] LAB[facility]ATORY Specimen Anatomical Collection Method / Collection Time Recei laura Time (Source) Location / Volume Laterality Blood BLOOD SPECIMEN / Venipuncture / 06/14/2022 8:41 2021 8:43 Unknown Unknown PM CDT PM CDT Rosenda Blancas MD CHEMISTRY Performing Organization Address City/State/ZIP Code Phon e Number [facility] LABORATORY [address] [place] [address] CT CHEST WO (06/14/2022 7:52 PM CDT) Anatomical Region Laterality Modality CHEST, THORAX, HEART Computed Tomography Specimen (Source) Anatomical Collection Method Collection Time Re ceived Time Location / / Volume Laterality 06/14/2022 8:25 PM CDT Narrative 06/14/2022 8:25 PM CDT For Patients: ??As a result of the Cures Act, medical imaging exams and procedure report s are released immediately into your [facility] medical record. ??You may view this report [...] provider. If you have questions, please contact [facility] care provider. Indication: Shortness of breath Technique: [...] s are released immediately into your [facility] medical record. ??You may view this report [...] note that all CT scans at this [facility] use dose modulation, iterative reconstruction, and/or weight-based [...] note that all CT scans at this [facility] use dose modulation, iterative reconstruction, and/or weight-based [...] report s are released immediately into your [facility] medical record. ??You may view this report [...] note that all CT scans at this [facility] use dose modulation, iterative reconstruction, and/or weight-based [...] provider. If you have questions, please contact [facility] care provider. Indication: Trauma Technique: Volumetric multidetector [...] note that all CT scans at this [facility] use dose modulation, iterative reconstruction, and/or weight-based [...] Rosenda Blancas MD MICROBIOLOGY Performing Organization Address City/[facility] Phon e [facility] LABORATORY [address] [place] [address] TROPONIN I (06/14/2022 6:35 PM CDT)Only the most recent of2 resultswithin the time period is included. athologist Signature TROPONIN I 0.019 <0.034 06/14/2022 [place] ng/mL 7:11 PM CDT [facility] LABORATORY Specimen Anatomical Collection Method / Collection Time Recei laura Time (Source) Location / Volume Laterality Blood BLOOD SPECIMEN / Venipuncture / 06/14/2022 6:35 2021 6:42 Unknown Unknown PM CDT PM CDT Rosenda Blancas MD CHEMISTRY Performing Organization Address [facility] Phon e [facility] LABORATORY [address] [place] [address] (ABNORMAL) BRAIN NATRIURETIC PEPTIDE (06/14/2022 6:35 PM CDT)Only the most recent of4 resultswithin the time period is included. athologist [facility] BRAIN FILIPPO 116 (H) <100 pg/mL 06/14/2022 [place] PEPTIDE 7:12 PM CDT [facility] LABORATORY Specimen Anatomical Collection Method / Collection Time Recei laura Time (Source) Location / Volume Laterality Blood BLOOD SPECIMEN / Venipuncture / 06/14/2022 6:35 2021 6:42 Unknown Unknown PM CDT PM CDT Rosenda Blancas MD CHEMISTRY Performing Organization Address City/[facility] Phon e Number [facility] LABORATORY [address] [place] [address] (ABNORMAL) COVID 19 (06/14/2022 6:34 PM CDT)Only the most recent of2 results within the time period is included. [facility] gist Method Time Signature COVID 19 Detected (A) Not detected 06/14/2022 [facility] 6:59 PM CDT [facility] LABORATORY Specimen Anatomical Location / Collection Method Collection Selvin e Received Time (Source) Laterality / Volume Other SPECIMEN FROM Non-Blood / 06/14/2022 6:34 06/14/2022 6:37 NASOPHARYNGEAL Unknown PM CDT PM CDT STRUCTURE / Unknown Narrative [facility] LABORATORY - 6:59 PM CDT This test [...] Rosenda Blancas MD MICROBIOLOGY Performing Organization Address [facility] e [facility] LABORATORY [address] [place] [address] COVID 19 COLLECTION (06/14/2022 6:34 PM CDT)Only the most recent of2 results within the time period is included. [facility] gist Method Time Signature TESTING [facility] 06/14/2022 [place] LABORATORY Laboratory 6:[address] [facility] Comment: Specimen submitted to [facility] for testing. Specimen Anatomical Location / Collection Method Collection Selvin e Received Time (Source) Laterality / Volume Other SPECIMEN FROM Non-Blood / 06/14/2022 6:34 06/14/2022 6:37 NASOPHARYNGEAL Unknown PM CDT PM CDT STRUCTURE / Unknown Rosenda Blancas MD SEND OUTS Performing Organization Address [facility] e [facility] LABORATORY [address] [place] [address] POTASSIUM (06/05/2022 5:47 AM CDT) athologist Signature POTASSIUM 4.0 3.5 - 5.0 06/05/2022 [place] mmol/L 6:[address] [facility] LABORATORY Specimen Anatomical Collection Method / Collection Time Recei laura Time (Source) Location / Volume Laterality Blood BLOOD SPECIMEN / Venipuncture / 06/05/2022 5:47 2021 6:05 Unknown Unknown AM CDT AM CDT Víctor Schuler CHEMISTRY Performing Organization Address City/[facility]/ZIP Code Phon e Number [facility] LABORATORY [address] [place] [address] (ABNORMAL) BLOOD GAS,VENOUS (06/03/2022 5:47 AM CDT)Only the most recent of2 resultswithin the time period is included. [facility] Method Time Signature PH, VENOUS 7.32 7.32 - 7.43 06/03/2022 [place] 6:[address] [facility] LAB[facility] PCO2, VENOUS 41 41 - 51 06/03/2022 [facility] mmHg 6:[address] [facility] LAB[facility] PO2, VENOUS 45 (H) 35 - 40 06/03/2022 [place] mmHg 6:[address] [facility] LABOR[facility]ORY HCO3,VENOUS 21 (L) 22 - 29 06/03/2022 [place] mmol/L 6:[address] [facility] LABORATORY BASE EXCESS, -4.8 (L) -2.0 - 3.0 06/03/2022 [place] VENOUS, POCT 6:[address] [facility] LAB[facility] O2 SATURATION, 83 (H) 70 - 75 % 06/03/2022 [facility] VENOUS 6:[address] [facility] LABORATORY PATIENT 37.0 Degrees C 06/03/2022 [place] TEMPERATURE 6:[address] [facility] LABORATORY Specimen Anatomical Collection Method / Collection Time Recei laura Time (Source) Location / Volume Laterality Blood VENOUS BLOOD Venipuncture / 06/03/2022 5:47 06/03/2022 6:02 SPECIMEN / Unknown Unknown AM CDT AM CDT Víctor Sara Schuler DO CHEMISTRY Performing Organization Address City/[facility]/ZIP Code Phon e Number [facility] LABORATORY [address] [place] [address] [place] RENAL BILATERAL (06/02/2022 3:34 PM CDT) [...] s are released immediately into your [facility] medical record. ??You may view this report [...] provider. If you have questions, please contact [facility] health care provider. INDICATION: Renal transplant. Urinary [...] (ABNORMAL) URINE CULTURE (06/02/2022 12:45 AM CDT) [facility] Method Time Signature CULTURE RESULT (A) 06/04/2022 [facility] 7:59 AM CDT LABORATORY-JACKY TRAL LABORATORY CULTURE >100,000 CFU/mL 06/04/2022 [facility] [employer] Escherichia coli 7:59 AM CDT LABORATORY- JACKY TRAL LABORATORY CULTURE <10,000 CFU/mL 06/04/2022 [facility] [employer] Multiple 7:59 AM CDT LABORATORY-JACKY organisms TRAL [...] Organization Address City/State/ZIP Code Phon e Number [facility] [address] [place] [address] LABORATORY-CENTRAL 2000 LABORATORY INFLUENZA A/B/H1N1 PCR (06/02/2022 12:39 AM CDT) Patholo gist Method Time Signature INFLUENZA A NOT Detected 06/02/2022 [place] PCR 1:23 AM CDT [facility] LAB[facility] INFLUENZA B NOT Detected 06/02/2022 [place] PCR 1:23 AM CDT [facility] LABORATORY Specimen Anatomical Location / Collection Method Collection Selvin e Received Time (Source) Laterality / Volume Other SPECIMEN FROM Non-Blood / 06/02/2022 12:39 06/02/2022 NASOPHARYNGEAL Unknown AM CDT 12:52 AM CDT STRUCTURE / Unknown Cayetano Shay MD MICROBIOLOGY Performing Organization Address City/[facility] Phon e Number [facility] LABORATORY [address] [place] [address] EKG 12 Lead (06/02/2022 12:29 AM CDT) Component Value Ref Range Test Analysis Performed Pathologis t Method Time At [facility] Interpretation Atrial fibrillation BEYON D NOW Nonspecific ST abnormality Abnormal ECG Ventricular Rate 79 BPM BEYOND NOW Atrial Rate 69 BPM BEYOND NOW P-R Interval ms BEYOND NOW QRS Duration 110 ms BEYOND NOW QT 362 ms BEYOND NOW QTc 415 ms BEYOND NOW P [place] degrees BEYOND NOW R [place] 26 degrees BEYOND NOW T [place] 26 degrees BEYOND NOW Specimen Anatomical Collection Method Collection Time Receive d Time (Source) Location / / Volume Laterality 06/02/2022 12:29 06/02/2022 4:21 AM CDT AM CDT Cayetano Shay MD EKG ORD Performing Organization Address City/[facility] Phon e Number BEYOND NOW [place], [place] (ABNORMAL) C-REACTIVE PROTEIN (06/02/2022 12:25 AM CDT) Analysis Performed At Patho logist Time Signature C-REACTIVE 1.36 (H) <0.50 06/02/2022 [place] PROTEIN mg/dL 5:38 AM CDT [facility] LAB[facility]ORY Specimen Anatomical Collection Method Collection Time Receive d Time (Source) Location / / Volume Laterality Blood BLOOD SPECIMEN / Butterfly / 06/02/2022 12:25 022 Unknown Unknown AM CDT 12:29 AM CDT Giovanni Lara MD CHEMISTRY Performing Organization Address City/[facility]/ZIP [facility] Phon e Number [facility] LABORATORY [address] [place] [address] LAB TRACKING EVENT (04/07/2022 11:40 AM CDT) Specimen Anatomical Collection Method Collection Time Receive d Time (Source) Location / / Volume Laterality Other (Other) Client Collect / 04/07/2022 11:40 2021 3:34 Unknown AM CDT PM CDT Doctor Unknown LAB BILL ONLY Performing Organization Address City/State/ZIP Code Phon e Number [facility] [address] [place] [address] LABORATORY-CENTRAL 2000 LABORATORY PATH TISSUE EXAM (04/07/2022 11:40 AM CDT) Component Value Ref Test Analysis Performed At [facility] gist Range Method Time Signature Case Report Pathology Report ?Case: [id number] ? 04/12/2022 [facility] Authorizing Provider: ??Unkn own, Doctor ?Collected: ? 04/07/2022 1140 ? 11:31 AM LAB ORATORY-CE Ordering Location: ? L CENTRAL LAB ?Received: ?04/08/2022 1609 ? CDT N TRAL Pathologist: ? Ricky Lisa ? LABORATORY ? MD Jessie ? Specimen: ?Right Clavicl e ? Final A) SKIN, RIGHT CLAVICLE, WOUND, BIOPSY: 04/12/2022 [facility] Electronically Diagnosis 1. Ulceration with serum crust and underlying granulat ion tissue 11:31 AM LABORATORY-CE signed by 2. Negative for malignancy CDT NTR Ricky Roberts LABORATORY Jose mcgill MD on 04/12/20 at 11:31 AM Comment The presence 04/12/2022 [facility] of blue and 11:31 AM LABORATORY-CE green ink are CDT NTRAL confirmed on LABORATORY tissue sections. Clinical Mr. Guthrie is 04/12/2022 [facility] Information a 72 y.o. with 11:31 AM LABORATORY-CE a right CDT NTRAL clavicle LABORATORY wound, post excision site. Gross A) Received in formalin, lab eled with the patient's name and right clavicle, are two skin punch biopsies. The first is a 0.3 x 0.3 x 0.4 cm skin punch biopsy. The skin surface displays a 0.2 x 0.1 cm 04/12/2022 [facility] Description depressed brown possible les ion. The [...] LABORATORY LH 04/08/2022 Microscopic The final 04/12/2022 [facility] Description diagnosis is 11:31 AM LABORATORY-CE based on CDT NTRAL microscopic LABORATORY examination of appropriate sections of all specimens. Additional 04/12/2022 [facility] Information Interpreted at [facility] Laboratory - [address] [place] [address] [address] 11:31 AM LABORATORY-CE CDT NTRAL LABORATORY Specimen Anatomical Collection Method Collection Time Receive d Time (Source) Location / / Volume Laterality Other (Right 04/07/2022 11:40 04/08/2022 4:09 Clavicle) AM CDT PM CDT Doctor Unknown PATHOLOGY/CYTOLOGY Performing Organization Address City/State/ZIP Code Phon e Number [facility] [address] [place] [address] LABORATORY-CENTRAL 2000 LABORATORY from Last 3 Months Additional Health Concerns Infection Onset Date Last Indicated MRSA ClearanceComment: If >12 months sin ce positive culture, precautions can be discontinued if patient has no MRSA risk factors. 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 right check exclusions for contact precaution dis continuation (if > 12 months since positive culture): resides in acute/prison care, receiving hemodialysis, has chronic open wounds/skin [...] Group Dates MEDICARE PART MEDICARE PART A [id number] 2011-Prese A TTN: CLAIMS A - HB USE HB ONLY nt [address] [place] [address] MEDICARE PART MEDICARE PART B [id number] 2012-Pres A TTN: CLAIMS B - HB USE HB ONLY ent [address] [place] [address] MEDICARE - PB MEDICARE PB [id number] 2014-Prese ATTN: CLAIMS USE ONLY ONLY nt [address] [place] [address] BLUE CROSS BLUE CROSS OF [id number] 2016-Prese [address] [facility] [place] [address] BLUE CROSS BLUE CROSS OF [id number] 2013-Prese [address] [facility] [place] [address] MEDICARE PPS HC MEDICARE PPS [id number] 2011-Prese [address] [place] [address] (Home) [place] [address] Diego Guthrie Personal/Family Self [address] (Home) [place] [address] Diego Guthrie Personal/Family Self [address] (Home) [place] [address] Diego Guthrie Shelter Self [address] (Home) [place] [address] Advance Directives Documents on File Type Date Recorded Patient Safety And Health Consultant Explanati on POLST 09/26/2020 Latest Code Status [...] PM Code Status Discussion: Discussed Care Teams Inside Contractor Sales Relationship Specialty Start Date End Date Momo Forbes MD PCP - General Family Practice 01/22/211999 [place] [address]
--- OUTSIDE RECORDS SUMMARY | 2022-06-28 13:13 | XMS_ITS | Clinical Summary ---
:1950 Author Organization [place] Address [facility]ly [facility] [place] [address] Care Team Providers Name Role Phone Momo [...] Problem list name updated by automated p [employer]. Provider to review Gout 12/02/2011 Peripheral neuropathy 12/02/2011 Diabetic retinopathy 12/02/2011 HTN, kidney transplant related 12/02/2011 Overview: Problem list name updated by automated p [employer]. Provider to review DM (diabetes mellitus), type 2 12/02/2011 History of tobacco use 12/02/2011 Thrombocytopenia 12/02/2011 Malaise and fatigue 12/02/2011 Overview: Problem list name updated by automated p [employer]. Provider to review Depression Resolved Problems Problem [...] Solid Organ Gretta Peacock, Transplant (C ovid passenger screener reassessment/) 06/07/2022 Telephone Solid Organ Gretta Peacock, Transplant (C ovid passenger screener reassessment ) 06/05/2022 Telephone Solid Organ Evelyn Schuster, passenger screener 06/02/2022 Documentation Only NephSatish Reyes MD 05/06/2022 Telephone Solid Organ Gretta Peacock, Left Message To passenger screener Call (Left VM 05/06/2022 at 11:55PM., Wante d to discuss lab results) 05/04/2022 Telephone Solid Organ Gretta Peacock Transplant La b passenger screener (Elevated serum creatinine and proteinuria) 05/02/2022 Telephone Solid Organ Gretta Peacock, Erroneous passenger screener encounter-disre sebastian 04/29/2022 External Order Lab Outside, Results Provider 04/13/2022 Telephone Solid Organ Gretta Peacock, Voicemail passenger screener from Last 3 Months Immunizations Name Administration [...] Comments Blood Pressure 169/76 10/09/2019 2:35 PM LITIGATION ASSISTANT Pulse 67 10/09/2019 2:35 PM LITIGATION ASSISTANT Temperature 36.5 ??C (97.7 ??F) 10/17/2018 1:54 PM LITIGATION ASSISTANT Respiratory Rate 18 10/25/2016 4:39 PM LITIGATION ASSISTANT Oxygen Saturation 95% 10/09/2019 2:35 PM LITIGATION ASSISTANT Inhaled Oxygen Concentration - - Weight 132.5 kg (292 lb 1.6 oz) 10/09/2019 2:35 PM LITIGATION ASSISTANT Height 182.9 cm (6') 10/10/2017 2:25 PM LITIGATION ASSISTANT Body Mass Index 39.62 10/10/2017 2:25 PM LITIGATION ASSISTANT Plan of Treatment Health Maintenance Due Date [...] this topic Medical Devices Explanted Type Area Director Of Primary Care Device Shelf Model / Identifier Expiration Serial / Date Lot Stent Ureteral [employer] Renal Transplant [id number] Right: [employer] 11/19/2016 [id number] / Implanted: Qty: 1 on 02/02/2014 by Migel Viveros MD at [facility] [employer] / Explanted: Qty: 1 on 04/01/2014 by Celina Helton MD at [facility] [id number] Procedures Procedure Name Priority Date/Time Associated Comments [...] Platelets & Differential (04/29/2022 11:40 AM CDT) [facility] gist Method [...] Performing Organization Address City/[facility]/ZIP Code Phon e Number [employer] NON-INTERFACED [...] Address T ype Group Dates MEDICARE MEDICARE [id number] 2011-Prese [phone] ATTN [place] Medicare nt 40 [address] [place] [address] [place] [id number] 2016-Prese [phone] [address] [address] [address]emnity [address] [place] [address] Diego Guthrie Personal/Family Self [address] [place] (Home) [place] [address] Advance Directives For more information, please contact: [phone] Latest Code Status on File Code Status Date Activated Date Inactivated Comments Full Code 04/01/2014 9:03 AM Code Status History Code Status Date Activated Date Inactivated Comments Full Code 02/08/2014 7:12 AM 04/01/2014 9:03 AM Full Code 02/03/2014 12:56 AM 02/08/2014 7:12 AM Care Teams Tablet Repair Relationship Specialty Start Date End Date Momo Forbes PCP - General Family Practice 01/02/14 [facility] [address] [place] [address] Joseph Quintana, Assigned Nephrology 03/29/21 MD Provider [address] [place] [address] [address] [place], [place] [id number]
--- OUTSIDE RECORDS SUMMARY | 2022-06-28 13:13 | XMS_ITS | Encounter Summary ---
:1950 Author Organization [place] Address [address] [place] [address] Care Team Providers Name Role Phone Momo Forbes Primary Care Provider oJseph Quintana MD Unavailable Reason for Visit Reason Onset Date Comments Call Back 06/18/2022 Medications Encounter Details Date Type Department Care Team Description 06/18/2022 Telephone [facility] Satish Gómez MD Call Back (Medications) Nephrology Clinic [address] [place] [phone] Social History Tobacco Use Types Packs/Day Years [...] 06/21/2022 2:28 PM CDT General Route to FIRE SERVICES PLUMBER Reason for call: Diego was returning a missed call Call back needed? Yes Return Call Needed Same as documented in contacts section When to return call?: Same day: Route High Priority Telephone Encounter - Luann Lagunas - 06/18/2022 12:12 PM CDT M [facility] Call Center Phone Message May a [...] Please have Dr. Gómez reach out to [facility] [phone] - [facility]. Thanks Action Taken: Message routed to: [facility] Neph Travel Screening: Not Applicable documented in this encounter Plan of Treatment Not on filedocumented as of this encounter Visit Diagnoses Not on filedocumented in this encounter Care Teams Transitions Manager Relationship Specialty Start Date End Date Momo Forbes PCP - General Family Practice 01/02/14 [facility] [address] [place] [address] Joseph Quintana, Assigned Nephrology 03/29/21 MD Provider 717 [facility] 353 [facility] 1932 [place], [place] [address] documented as of this encounter
--- OUTSIDE RECORDS SUMMARY | 2022-06-28 13:14 | XMS_ITS | Encounter Summary ---
:1950 Author Organization [place] Address [address] [place] [address] Care Team Providers Name Role Phone Momo Forbes Primary Care Provider Mariano, Joseph Durham MD Unavailable Reason for Visit Reason Onset Date Comments Transplant Lab 12/10/2021 Encounter Details Date Type Department Care Team Description 12/10/2021 Telephone [facility] Transplant Mati Recinos RN Transplant Lab Clinic [address] [place] [address] [phone] Social History Tobacco Use Types Packs/Day [...] filedocumented in this encounter Care Teams Glass Furnace Operator Relationship Specialty Start Date End Date Momo Forbes PCP - General Family Practice 01/02/14 [facility] [address] [place] [address] Joseph Quintana, Assigned Nephrology 03/29/21 MD Provider [address] [place] [address] [address] [place], [place] [id number] documented as of this encounter
--- OUTSIDE RECORDS SUMMARY | 2022-06-28 13:14 | XMS_ITS | Encounter Summary ---
:1950 Author Organization [place] Address [address] [place] [address] Care Team Providers Name Role Phone Momo Forbes Primary Care Provider Joseph Quintana MD Unavailable Encounter Details Date Type Department Care Team Description 11/16/2021 External Order [facility] Outside, Provide r Results Molecular Diagnostic s [address] [place] [phone] Social History Tobacco Use Types Packs/Day Years [...] [facility] Code Phon e Number BREEZE PFT NON-INTERFACED (ONBASE SCANS) (ABNORMAL) Lipid Profile (11/16/2021 7:12 PM CDT) [facility] Method Time Signature Cholesterol 98 90 [...] Platelets & Differential (11/16/2021 4:35 PM CDT) [facility] Method Time Signature WBC Count 6.8 [...] on filedocumented in this encounter Care Teams Shake Table Operator Relationship Specialty Start Date End Date Momo Forbes PCP - General Family Practice 01/02/14 [facility] [address] [place] [address] Joseph Quintana, Assigned Nephrology 03/29/21 Provider 7 [facility] 353 [facility] 1932 [place] [address] documented as of this encounter
--- OUTSIDE RECORDS SUMMARY | 2022-06-28 13:14 | XMS_ITS | Encounter Summary ---
:1950 Author Organization [place] Address [address] [place] [address] Care Team Providers Name Role Phone Momo Forbes Primary Care Provider Joseph Quintana MD Unavailable Reason for Visit Reason Onset Date Comments Transplant 01/21/2022 Hyperglycemia, eleva moni [facility] Encounter Details Date Type Department Care Team Description 01/21/2022 Telephone [facility] Gretta Peacock RN Trans plant Transplant Clinic (Hyperglycemia, elevated [address] [facility]) [place] [address] Social History Tobacco Use Types [...] 12:07 PM CDT ISSUE: trend up in [facility], hyperglycemia OUTCOME: phone call attempted X3. Will send letter via mail. Gretta Peacock blister pack operatorHeel Padder [phone] documented in this encounter Plan of Treatment Not on filedocumented as of this encounter Visit Diagnoses Not on filedocumented in this encounter Care Teams Lvn Lpn Relationship Specialty Start Date End Date Momo Forbes PCP - General Family Practice 01/02/14 [facility] [address] [place] [address] Joseph Quintana, Assigned Nephrology 03/29/21 MD Provider [address] [place] [address] 1932 [place] [address] documented as of this encounter
--- OUTSIDE RECORDS SUMMARY | 2022-06-28 13:14 | XMS_ITS | Encounter Summary ---
:1950 Author Organization [place] Address [address] [place] [address] Care Team Providers Name Role Phone Momo Forbes Primary Care Provider Joseph Quintana MD Unavailable Encounter Details Date Type Department Care Team Description 06/05/2022 Telephone [facility] Evelyn Schuster RN Transplant Clinic [address] [phone] [facility] [phone] [place] [address] (Wo rk) Social History Tobacco [...] filedocumented in this encounter Care Teams Logging Specialist Relationship Specialty Start Date End Date Momo Forbes PCP - General Family Practice 01/02/14 [facility] [address] [place] [address] Joseph Quintana, Assigned Nephrology 03/29/21 MD Provider 7 [facility] 353 [facility] 1932 [place], [place] [id number] documented as of this encounter
--- OUTSIDE RECORDS SUMMARY | 2022-06-28 13:14 | XMS_ITS | Encounter Summary ---
:1950 Author Organization [place] Address [facility] [place] [address] Care Team Providers Name Role Phone Momo Forbes Primary Care Provider Joseph Quintana MD Unavailable Reason for Visit Reason Onset Date Comments Refill Request 08/25/2021 Encounter Details Date Type Department Care Team Description 08/25/2021 Refill [facility] Transplant Debbie Calderon LPN Refill Request Clinic [address] [place] [phone] Social History Tobacco Use Types [...] documented in this encounter Care Teams Case Mgr Relationship Specialty Start Date End Date Momo Forbes PCP - General Family Practice 01/02/14 [facility] [address] [place] [address] Joseph Quintana, Assigned Nephrology 03/29/[address] [place] [address] 353 [facility] 1932 [place] [address] documented as of this encounter
--- OUTSIDE RECORDS SUMMARY | 2022-06-28 13:14 | XMS_ITS | Encounter Summary ---
:1950 Author Organization [place] Address [facility] [place] [address] Care Team Providers Name Role Phone Momo Forbes Primary Care Provider Joseph Quintana MD Unavailable Reason for Visit Reason Onset Date Comments Erroneous encounter-disregard 05/02/2022 Encounter Details Date Type Department Care Team Description 05/02/[address] [facility] Gretta Peacock, BOGDAN [place] [facility] Transplant Clinic encounter-disregard [address] [place] [address] Social History Tobacco Use Types [...] filedocumented in this encounter Care Teams Wind Turbine Design Engineer Relationship Specialty Start Date End Date Momo Forbes PCP - General Family Practice 01/02/14 [facility] [address] [place] [address] Joseph Quintana, Assigned Nephrology 03/29/21 Provider 717 [facility] 353 [facility] 1932 [place] [address] documented as of this encounter
--- OUTSIDE RECORDS SUMMARY | 2022-06-28 13:14 | XMS_ITS | Encounter Summary ---
:1950 Author Organization [place] Address [address] [place] [address] Care Team Providers Name Role Phone Momo Forbes Primary Care Provider Reason for Visit Reason Onset Date Comments Transplant 01/07/2021 Encounter Details Date Type Department Care Team Description 01/07/2021 Telephone [facility] Barbie Ugalde nsplanlynda Transplant Clinic BOGDAN Nam [address] [place] [address] [phone] Social History Tobacco Use Types Packs/Day [...] CDT Patient Call: Transplant Lab/Orders Route to KEYBOARD SPECIALIST Post Transplant Days: 2530 When patient is less than 60 days post-transplant, route high priority Reason for Call: Annual lab reorder fax labs to [facility] lab at [phone] Labs drawn Waiting fororders Callback needed? No documented in this encounter Plan of Treatment Not on filedocumented as of this encounter Visit Diagnoses Not on filedocumented in this encounter Care Teams Nursing Care Attendant Relationship Specialty Start Date End Date Momo Forbes PCP - General Family Practice 01/02/14 [facility] [address] [place] [address] documented as of this encounter
--- OUTSIDE RECORDS SUMMARY | 2022-06-28 13:14 | XMS_ITS | Encounter Summary ---
:1950 Author Organization [place] Address [address] [place] [address] Care Team Providers Name Role Phone Momo Forbes Primary Care Provider Joseph Quintana MD Unavailable Encounter Details Date Type Department Care Team Description 04/29/2022 External Order [facility] Outside, Provide r Results Molecular Diagnostic s [address] [place] [phone] Social History Tobacco Use Types Packs/Day Years [...] LAB - URINE ORDERABLES Performing Organization Address City/[facility] Code Phon e Number BREEZE PFT [...] filedocumented in this encounter Care Teams Optical Model Maker And Tester Relationship Specialty Start Date End Date Momo Forbes PCP - General Family Practice 01/02/14 [facility] [address] [place] [address] Joseph Quintana, Assigned Nephrology 03/29/21 Provider 717 [facility] 353 [facility] [address] [place] [address] documented as of this encounter
--- OUTSIDE RECORDS SUMMARY | 2022-06-28 13:14 | XMS_ITS | Encounter Summary ---
:1950 Author Organization [place] Address [address] [place] [address] Care Team Providers Name Role Phone Momo Forbes Primary Care Provider Joseph Quintana MD Unavailable Encounter Details Date Type Department Care Team Description 01/19/2022 External Order [facility] Outside, Provide r Results Molecular Diagnostic s [address] [place] [address] Social History Tobacco Use Types Packs/Day Years [...] External Culture Results (01/19/2022 12:11 PM CDT) [facility] Method Time Signature Scan Culture See Scanned NON-INTERFACE Results Report D (ONBASE (External) SCANS) Specimen (Source) Anatomical Collection Method Collection Time Re ceived Time Location / / Volume Laterality 01/19/2022 12:11 PM CDT Narrative BREEZE PFT - 01/25/2022 2:48 PM CDT Verified by Priscilla Mcdaniel on 01/25/2022. Provider Outside LABORATORY Performing Organization Address City/[facility]/ZIP Code Phon e Number BREEZE PFT [...] LAB - URINE ORDERABLES Performing Organization Address City/[facility] Phon e Number BREEZE PFT NON-INTERFACED [...] UA with Microscopic (01/19/2022 11:16 AM CDT) [facility] gist Method Time Signature Color Urine YEL YELLOW NON-INTERFAC (External) ED (ONBASE SCANS) Appearance Urine CLEAR CLEAR NON-INTERFAC (External) ED (ONBASE SCANS) Glucose Urine 2+ NEGATIVE NON-INTERFAC (External) ED (ONBASE SCANS) Bilirubin Urine NEG NEGATIVE NON-INTERFAC (External) ED (ONBASE SCANS) Ketones Urine NEG NEGATIVE NON-INTERFAC (External) ED (ONBASE SCANS) Specific [place] 1.010 1.005 - NON-INTERFAC Urine (External) 1.030 [...] on filedocumented in this encounter Care Teams Shop Cooper Relationship Specialty Start Date End Date Momo Forbes PCP - General Family Practice 01/02/14 [facility] [address] [place] [address] Joseph Quintana, Assigned Nephrology 03/29/[address] [place] [address] 1932 [place], [place] [id number] documented as of this encounter
--- OUTSIDE RECORDS SUMMARY | 2022-06-28 13:14 | XMS_ITS | Encounter Summary ---
:1950 Author Organization [place] Address [address] [place] [address] Care Team Providers Name Role Phone Momo Forbes Primary Care Provider Mariano, Joseph Durham MD Unavailable Reason for Visit Reason Onset Date Comments Transplant 12/02/2021 Encounter Details Date Type Department Care Team Description 12/02/2021 Telephone [facility] Transplant Obdulia Peacock, ear nose throat physician Clinic [address] [place] [address] [phone] Social History Tobacco Use Types Packs/Day [...] confirm he received message. Gretta Peacock RN Nascar Racer [phone] ADDENDUM: left message for patient stating he has active orders at preferred lab. Asked to please obtain a full set of transplant labs as soon as possible. Gretta Peacock ear nose throat physicianNascar Racer [phone] documented in this encounter Plan of Treatment Not on filedocumented as of this encounter Visit Diagnoses Not on filedocumented in this encounter Care Teams Softlines Supervisor Relationship Specialty Start Date End Date Momo Forbes PCP - General Family Practice 01/02/14 [facility] [address] [place] [address] Joseph Quintana, Assigned Nephrology 03/29/[address] [place] [address] [address] [place] [address] documented as of this encounter
--- OUTSIDE RECORDS SUMMARY | 2022-06-28 13:14 | XMS_ITS | Encounter Summary ---
:1950 Author Organization [place] Address [facility] [place] [address] Care Team Providers Name Role Phone Momo [...] filedocumented in this encounter Care Teams Instructional Support Technician Relationship Specialty Start Date End Date Momo Forbes PCP - General Family Practice 01/02/14 [facility] [address] [place] [address] documented as of this encounter
--- OUTSIDE RECORDS SUMMARY | 2022-06-28 13:14 | XMS_ITS | Encounter Summary ---
:1950 Author Organization [place] Address [address] [place] [address] Care Team Providers Name Role Phone Momo Forbes Primary Care Provider Encounter Details Date Type Department Care Team Description 01/30/2021 Telephone [facility] Transplant Viv Torres RN [place] [phone] Social History Tobacco Use Types Packs/Day [...] not included. Message Received: Today Beny Staton, [facility] Barbie Ugalde, BOGDAN Diego has not ordered tacro 0.5mg in over a year. ??He just ordered 1mg today but not the 0.5mg. Beny Staton [facility] Specialty Pharmacist [phone] NEEDLE MAKER task: Can you please call Diego to find out what dose of tacrolimus he is taking and notify coordinator if different than what is prescribed. Recommend repeat tacrolimus level for previously elevated level 7.3, goal 4-6. Thank you, Barbie Ugalde RN, BSN Solid Organ Transplant, Post Kidney and Pancreas Transplant Client Architect [phone] Telephone Encounter - Viv Torres RN - [...] documented in this encounter Care Teams Supervisor [employer] Relationship Specialty Start Date End Date Momo Forbes PCP - General Family Practice 01/02/14 [place] [address] documented as of this encounter
--- OUTSIDE RECORDS SUMMARY | 2022-06-28 13:14 | XMS_ITS | Encounter Summary ---
:1950 Author Organization [place] Address [address] [place] [address] Care Team Providers Name Role Phone Momo Forbes Primary Care Provider Joseph Quintana MD Unavailable Reason for Visit Reason Onset Date Comments Transplant Lab 05/04/2022 Elevated serum creat inine and proteinuria Encounter Details Date Type Department Care Team Description 05/04/2022 Telephone [facility] Gretta Peacock RN Trans plant Lab (Elevated Transplant Clinic serum creatinine and [address] proteinuria) [place] [phone] Social History Tobacco Use Types [...] on filedocumented in this encounter Care Teams Transformer Inspector Relationship Specialty Start Date End Date Momo Forbes PCP - General Family Practice 01/02/14 [facility] [address] [place] [address] Joseph Quintana, Assigned Nephrology 03/29/21 Provider [address] [place] [address] documented as of this encounter
--- OUTSIDE RECORDS SUMMARY | 2022-06-28 13:14 | XMS_ITS | Encounter Summary ---
:1950 Author Organization [place] Address [address] [place] [address] Care Team Providers Name Role Phone Momo Forbes Primary Care Provider Joseph Quintana MD Unavailable Encounter Details Date Type Department Care Team Description 04/30/2021 External Order [facility] Outside, Provide r Results Molecular Diagnostic s [address] [place] [phone] Social History Tobacco Use Types Packs/Day Years [...] Platelets & Differential (04/30/2021 11:20 AM CDT) [facility] gist Method Time Signature WBC [...] on filedocumented in this encounter Care Teams Pulmonologist Intensivist Relationship Specialty Start Date End Date Momo Forbes PCP - General Family Practice 01/02/14 [facility] [address] [place] [address] Joseph Quintana, Assigned Nephrology 03/29/21 MD Provider [address] [place] [address] 1932 [place] [address] documented as of this encounter
--- OUTSIDE RECORDS SUMMARY | 2022-06-28 13:14 | XMS_ITS | Encounter Summary ---
:1950 Author Organization [place] Address [facility] [place] [address] Care Team Providers Name Role Phone Momo Forbes Primary Care Provider Mariano, Joseph Durham MD Unavailable Reason for Visit Reason Onset Date Comments Voicemail 04/13/2022 Encounter Details Date Type Department Care Team Description 04/13/2022 Telephone [facility] Transplant Obdulia Peacock, RN Voicemail Clinic [address] [place] [address] [phone] Social History Tobacco Use Types Packs/Day [...] to patient via mail Gretta Peacock RN Clinical Reimbursement Specialist [phone] Telephone Encounter - Adriana Raza - 04/13/2022 2:31 PM CDT Voicemail Date/Time: 04/13/22 2:27 pm Reason for call: Diego received a letter stating we have been trying ot reach him so he was responding documented in this encounter Plan of Treatment Not on filedocumented as of this encounter Visit Diagnoses Not on filedocumented in this encounter Care Teams Family Counselor Relationship Specialty Start Date End Date Momo Forbes PCP - General Family Practice 01/02/14 [facility] [address] [place] [address] Joseph Quintana, Assigned Nephrology 03/29/21 MD Provider 7 [facility] 353 [facility] [address] [place] [address] documented as of this encounter
--- OUTSIDE RECORDS SUMMARY | 2022-06-28 13:14 | XMS_ITS | Encounter Summary ---
:1950 Author Organization [place] Address [address] [place] [address] Care Team Providers Name Role Phone Momo Forbes Primary Care Provider Joseph Quintana MD Unavailable Reason for Visit Reason Onset Date Comments Transplant Lab 05/04/2021 Encounter Details Date Type Department Care Team Description 05/04/2021 Telephone [facility] Transplant Krys Garcia, Transplant Lab Clinic RN [address] [place] [phone] Social History Tobacco Use Types [...] maroon colored stools. Stateshe had colonoscopy with [facility] about a year ago. Appears in CareEverywhere colonoscopy was 03/20/2015. Latrell denies infectious symptoms currently but reports he had R foot surgery at [place] this last winter for diabetic foot ulcer. Infection in bottom of foot; laid up since Sep. Pretty well healed except a little speck. Follows up with Dr. Chatterjee. Will check iron panel on next labs. Orders sent. Barbie Ugalde, RN, BSN Solid Organ Transplant, Post Kidney and Pancreas Transplant Aboriginal Education Teacher [phone] Telephone Encounter - Krys Garcia RN - 05/04/2021 8:09 AM CDT ISSUE: Falling hemoglobin. documented in this encounter Plan of Treatment Not on filedocumented as of this encounter Visit Diagnoses Not on filedocumented in this encounter Care Teams Shirt Marker Relationship Specialty Start Date End Date Momo Forbes PCP - General Family Practice 01/02/14 [facility] [address] [place] [address] Joseph Quintana, Assigned Nephrology 03/29/[address] [place] [address] 1932 [place], [place] [address] documented as of this encounter
--- OUTSIDE RECORDS SUMMARY | 2022-06-28 13:14 | XMS_ITS | Encounter Summary ---
:1950 Author Organization [place] Address [facility] [place] [address] Care Team Providers Name Role Phone Momo Forbes Primary Care Provider Joseph Quintana MD Unavailable Reason for Visit Reason Onset Date Comments Transplant 09/22/2021 Encounter Details Date Type Department Care Team Description [facility]/22[facility]2021 [facility] BOGDAN Nam [address] [place] [address] [phone] Social History Tobacco Use Types Packs/Day Years Used Date Smoking Tobacco: Former Cigars Quit : 08/22/2006 Smokeless Tobacco: Never Alcohol Use Standard Drinks/Week Comments Yes 0 (1 standard drink = 0.6 oz pure alcoho l) occasional drink. Sex Assigned at Date Recorded Not on file documented as of this encounter Miscellaneous Notes Telephone Encounter - Barbie Ugalde RN - 09/22/2021 2:16 PM ENTRY ANALYST Post discharge from [facility] 09/20/21; to rehab/TCU due to wound on stump; can't wear prosthetic until healed. UTI on Cephelaxin 500 mg TID. Katharine TCU Unit Phone [facility] station [phone] Phone BOGDAN Baker [phone] Discussed Prograf dose was 1.5 mg at hospital. Should be 1 mg AM/0.5 mg PM. Repeat level with [facility] 09/24/21. Verbal orders taken by admissions. Barbie Crisostomo, RN, BSN Solid Organ Transplant, Post Kidney and Pancreas Transplant Pharmacy Scheduler [phone] Y ANALYST Telephone Encounter - MichaelAzael Deann - 09/22/2021 12:09 PM CST Katharine under the new name [facility] TCU has questions regarding medicationsand lab. Y ANALYST documented in this encounter Plan of Treatment Not on filedocumented as of this encounter Visit Diagnoses Not on filedocumented in this encounter Care Teams Beekeeper Farmer Relationship Specialty Start Date End Date Momo Forbes PCP - General Family Practice 01/02/14 [facility] [address] [place] [address] Joseph Quintana, Assigned Nephrology 03/29/21 MD Provider [address] [place] [address] [address] [place] [address] documented as of this encounter
--- OUTSIDE RECORDS SUMMARY | 2022-06-28 13:14 | XMS_ITS | Encounter Summary ---
:1950 Author Organization [place] Address [facility] [place] [address] Care Team Providers Name Role Phone Momo Forbes Primary Care Provider Joseph Quintana MD Unavailable Reason for Visit Reason Onset Date Comments Transplant 06/07/2022 Covid reassessment Encounter Details Date Type Department Care Team Description 06/07/2022 Telephone [facility] Gretta Peacock RN [facility] [address] [place] [phone] Social History Tobacco Use Types Packs/Day [...] that. Mycophenolate was held while inpatient at [facility]. Patient was discharged yesterday, Patient resumed his usual dose of MMF 750 mg bid. Current symptoms: cough, denies SOB. States he is feeling well. Will update transplant nephrology. Gretta Peacock RN Cementer Machine Applicator [phone] ADDENDUM: Satish Gómez MD Sveiven, Sara, RN I would actually have him take MMF 500mg bid and if feeling ok in 1 week increase to 750mg bid Patient v/u of taking MMF 500 mg bid for one week. Will reassess symptoms in one week. Gretta Peacock partridge farmerCementer Machine Applicator [phone] documented in this encounter Plan of Treatment Not on filedocumented as of this encounter Visit Diagnoses Not on filedocumented in this encounter Care Teams Bluing Oven Tender Relationship Specialty Start Date End Date Momo Forbes PCP - General Family Practice 01/02/14 [facility] [address] [place] [address] Joseph Quintana, Assigned Nephrology 03/29/21 Provider [address] [place], [place] [address] documented as of this encounter
--- OUTSIDE RECORDS SUMMARY | 2022-06-28 13:14 | XMS_ITS | Encounter Summary ---
:1950 Author Organization [place] Address [address] [place] [address] Care Team Providers Name Role Phone ForbesMomo Primary Care Provider Reason for Visit Reason Comments RECHECK Follow Up [place] Encounter Details Date Type Department Care Team Description 03/05/2021 Virtual Visit [facility] Joseph Quintana HTN, kevan dney transplant related (Primary Dx); Nephrology Clinic MD Herminio Kidney replaced by transplant; [address] Aftercare following organ tr ansplant; [address] [place] [address] SE RANJAN 353 [facility] Immunosu ppression (H); SE [address] Vitamin D deficiency; [place] [phone] Social History Tobacco Use Types Packs/Day Years [...] would you like to be contacted at? [phone] How would you like to obtain your [...] and ended up being discharged to a half-way. He is doing better and now back [...] unspecified documented in this encounter Care Teams Skin Pass Operator Relationship Specialty Start Date End Date Momo Forbes PCP - General Family Practice 01/02/14 [facility] [address] [place] [address] documented as of this encounter
--- OUTSIDE RECORDS SUMMARY | 2022-06-28 13:14 | XMS_ITS | Encounter Summary ---
:1950 Author Organization [place] Address [address] [facility] [place] [address] Care Team Providers Name Role Phone Momo Forbes Primary Care Provider Joseph Quintana MD Unavailable Encounter Details Date Type Department Care Team Description 06/02/[address] [facility] Dash Góemz am, MD Nephrology Clinic [address] [place] [address] [phone] Social History Tobacco Use Types Packs/Day Years [...] Satish Gómez MD, [place] Transplant Nephrology Pager: [phone] documented in this encounter Plan of Treatment Not on filedocumented as of this encounter Visit Diagnoses Not on filedocumented in this encounter Care Teams Coin Rolling Machine Operator Relationship Specialty Start Date End Date Momo Forbes PCP - General Family Practice 01/02/14 [facility] [address] [place] [address] Joseph Quintana, Assigned Nephrology 03/29/21 MD Provider 717 [facility] 353 [facility] 1932 [place] [address] documented as of this encounter
--- OUTSIDE RECORDS SUMMARY | 2022-06-28 13:14 | XMS_ITS | Encounter Summary ---
:1950 Author Organization [place] Address [address] [place] [address] Care Team Providers Name Role Phone Momo Forbes Primary Care Provider Joseph Quintana MD Unavailable Encounter Details Date Type Department Care Team Description 01/27/2021 External Order [facility] Outside, Provider Results Transplant Clinic [address] [place] [phone] Social History Tobacco Use Types Packs/Day [...] with platelets differential (01/27/2021 11:45 AM CDT) [facility] gist Method Time Signature WBC [...] on filedocumented in this encounter Care Teams Explosive Ordnance Handler Relationship Specialty Start Date End Date Momo Forbes PCP - General Family Practice 01/02/14 [facility] [address] [place] [address] Joseph Quintana, Assigned Nephrology 03/29/21 MD Provider [address] [place] [address] [address] [place] [address] documented as of this encounter
--- OUTSIDE RECORDS SUMMARY | 2022-06-28 13:14 | XMS_ITS | Encounter Summary ---
:1950 Author Organization [place] Address [address] [place] [address] Care Team Providers Name Role Phone Momo Forbes Primary Care Provider Mariano, Joseph Durham MD Unavailable Reason for Visit Reason Onset Date Comments Transplant 11/24/2021 Encounter Details Date Type Department Care Team Description 11/24/2021 Telephone [facility] Transplant Obdulia Peacock, linux admin engineer Clinic [address] [place] [address] [phone] Social History Tobacco Use Types Packs/Day [...] labs drawn ~one week ago at [facility], however results have not beenfaxed to [facility]. PLAN: call lab to have results faxed OUTCOME: New labs orders sent. Most recent bmp and cbc requested from october 2021. Tac and UPC due. Left detailed message with instructions to obtain tacrolimus trough level and UPC at earliest convenience. Asked for CB to confirm understanding. Gretta Peacock linux admin engineerAdvertising Intern [phone] Telephone Encounter - Azael Rodriguez - 11/24/2021 3:32 PM CDT Patient called to touch base with the RNCC regarding some questions. documented in this encounter Plan of Treatment Not on filedocumented as of this encounter Visit Diagnoses Not on filedocumented in this encounter Care Teams High School Teacher Relationship Specialty Start Date End Date Momo Forbes PCP - General Family Practice 01/02/14 [facility] [address] [place] [address] Joseph Quintana, Assigned Nephrology 03/29/21 MD Provider [address] [place] [address] [address] [place] [address] documented as of this encounter
--- OUTSIDE RECORDS SUMMARY | 2022-06-28 13:14 | XMS_ITS | Encounter Summary ---
:1950 Author Organization [place] Address On license of [facility] [address] Care Team Providers Name Role Phone Momo Forbes Primary Care Provider Joseph Quintana MD Unavailable Encounter Details Date Type Department Care Team Description 02/02/[address] [facility] Outside, Provider Results Transplant Clinic [address] [place] [phone] Social History Tobacco Use Types Packs/Day [...] Cassie Florian on 02/04/2021. Performed by: [facility] 1999 [place], [place] ??[address] Patient Reported LABORATORY Performing Organization Address City/State/ZIP Code Phon e Number JESSICA PFT COVID-19 EXTERNAL COVID-19 [place] [address], [facility] RESULTS Result Scanned into Patient Record by Decisyon Refer to Result Comment/Narrative for exact performing laboratory documented in this encounter Visit Diagnoses Not on filedocumented in this encounter Care Teams Core Machine Tender Relationship Specialty Start Date End Date Momo Forbes PCP - General Family Practice 01/02/14 [facility] [address] [place] [address] Joseph Quintana, Assigned Nephrology 03/29/21 MD Provider 717 [facility] 353 [facility] 1932 [place] [address] documented as of this encounter
--- OUTSIDE RECORDS SUMMARY | 2022-06-28 13:14 | XMS_ITS | Encounter Summary ---
:1950 Author Organization [place] Address [address] [place] [address]. [place] [address] Care Team Providers Name Role Phone Momo Forbes Primary Care Provider Joseph Quintana MD Unavailable Reason for Visit Reason Onset Date Comments Medication Refill Refill Request 08/20/2021 Encounter Details Date Type Department Care Team Description 08/20/2021 Refill [facility] Joseph Quintana on Refill; Nephrology Clinic MD Herminio Refill Request [address] 909 [facility] 353 [employer] 1932 [place], [place] [phone] Social History Tobacco Use Types Packs/Day Years [...] transplant documented in this encounter Care Teams Activities Concierge Relationship Specialty Start Date End Date Momo Forbes PCP - General Family Practice 01/02/14 [facility] [address] [place] [address] Joseph Quintana, Assigned Nephrology 03/29/21 MD Provider 717 [facility] 353 [employer] [address] [place] [address] documented as of this encounter
--- OUTSIDE RECORDS SUMMARY | 2022-06-28 13:14 | XMS_ITS | Encounter Summary ---
:1950 Author Organization [place] Address [facility] [place] [address] Care Team Providers Name Role Phone Momo Forbes Primary Care Provider Joseph Quintana MD Unavailable Encounter Details Date Type Department Care Team Description 08/25/2021 Orders Only [facility] Jose, Kidney tr ansplanted; Transplant Clinic BOGDAN Marcano -donor kidney transp lant recipient [address] [place] [address] Social History Tobacco Use Types [...] transplant documented in this encounter Care Teams Almond Cutting Machine Tender Relationship Specialty Start Date End Date Momo Forbes PCP - General Family Practice 01/02/14 [facility] [address] [place] [address] Joseph Quintana, Assigned Nephrology 03/29/21 Provider 717 [facility] 353 [facility] 1932 [place], [place] [address] documented as of this encounter
--- OUTSIDE RECORDS SUMMARY | 2022-06-28 13:14 | XMS_ITS | Encounter Summary ---
:1950 Author Organization [place] Address [facility] [place] [address] Care Team Providers Name Role Phone Momo Forbes Primary Care Provider Joseph Quintana MD Unavailable Reason for Visit Reason Onset Date Comments Refill Request 08/25/2021 Prograf 0.5mg Encounter Details Date Type Department Care Team Description 08/25/2021 Telephone [facility] Orlando Richey, Refil l Request (Prograf Transplant Clinic 0.5mg) [address] [place] [phone] Social History Tobacco Use Types [...] CPA: [facility] COLLABORATIVE AGREEMENT FOR IMMUNOSUPPRESSENT PRESCRIPTION MODIFICATION. Routing encounter to Transplant as an FYI. 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
--- OUTSIDE RECORDS SUMMARY | 2022-06-28 13:14 | XMS_ITS | Encounter Summary ---
:1950 Author Organization [place] Address [address] [place] [address] Care Team Providers Name Role Phone Momo Forbes Primary Care Provider Joseph Quintana MD Unavailable Encounter Details Date Type Department Care Team Description 12/09/2021 External Order [facility] Outside, Provide r Results Molecular Diagnostic s [address] [place] [phone] Social History Tobacco Use Types Packs/Day Years [...] (12/09/2021 11:50 AM CDT) Analysis Performed At [facility] logist Time Signature WBC Count 7.68 5.00 [...] filedocumented in this encounter Care Teams Marketing Communications Associate Relationship Specialty Start Date End Date Momo Forbes PCP - General Family Practice 01/02/14 [facility] [address] [place] [address] Joseph Quintana, Assigned Nephrology 03/29/21 MD Provider [address] [place] [address] 1932 [place], [place] [address] documented as of this encounter
--- OUTSIDE RECORDS SUMMARY | 2022-06-28 13:14 | XMS_ITS | Encounter Summary ---
:1950 Author Organization [place] Address [facility] [place] [address] Care Team Providers Name Role Phone Momo Forbes Primary Care Provider Reason for Visit Reason Onset Date Comments Transplant 02/03/2021 spoke w pt and donna rmed annual neph appt on 03/05/21 Encounter Details Date Type Department Care Team Description 02/03/[address] [facility] Barbie Ugalde (spoke w pt Transplant Clinic BOGDAN Nam and confirmed annual 909 [facility] SE neph appt on 03/05/21) [place] [address] Social History Tobacco Use [...] on filedocumented in this encounter Care Teams Barrel Drum Cutter Relationship Specialty Start Date End Date Momo Forbes PCP - General Family Practice 01/02/14 [facility] 1999 [place], [place] [address] documented as of this encounter
--- OUTSIDE RECORDS SUMMARY | 2022-06-28 13:14 | XMS_ITS | Encounter Summary ---
:1950 Author Organization [place] Address [address] [place] [address] Care Team Providers Name Role Phone Momo Forbes Primary Care Provider Mariano, Joseph Durham MD Unavailable Reason for Visit Reason Onset Date Comments Left Message To Call 05/06/2022 Left 05/06/2022 at 11:55PM., Wanted to discuss lab results Encounter Details Date Type Department Care Team Description 05/06/2022 [facility] Gretta Peacock RN Left Message To Call Transplant Clinic (Left 05/06/2022 at 9 [facility] SE 11:55PM., Wanted to [place], [place] discuss lab results) [phone] Social History [...] filedocumented in this encounter Care Teams Band Shover Relationship Specialty Start Date End Date Momo Forbes PCP - General Family Practice 01/02/14 [facility] [address] [place] [address] Joseph Quintana, Assigned Nephrology 03/29/21 MD Provider 717 [facility] 353 [facility] 1932 [place] [address] documented as of this encounter
--- OUTSIDE RECORDS SUMMARY | 2022-06-28 13:14 | XMS_ITS | Encounter Summary ---
:1950 Author Organization [place] Address [address] [place] [address] Care Team Providers Name Role Phone Momo Forbes Primary Care Provider Joseph Quintana MD Unavailable Encounter Details Date Type Department Care Team Description 01/07/2021 External Order [facility] Outside, Provider Results Transplant Clinic [address] [place] [phone] Social History Tobacco Use Types Packs/Day [...] filedocumented in this encounter Care Teams Air Pollution Compliance Inspector Relationship Specialty Start Date End Date Momo Forbes PCP - General Family Practice 01/02/14 [facility] [address] [place] [address] Joseph Quintana, Assigned Nephrology 03/29/21 MD Provider 717 [facility] 353 [facility] 1932 [place] [address] documented as of this encounter
--- OUTSIDE RECORDS SUMMARY | 2022-06-28 13:14 | XMS_ITS | Encounter Summary ---
:1950 Author Organization [place] Address [address] [place] [address] Care Team Providers Name Role Phone Momo Forbes Primary Care Provider Joseph Quintana MD Unavailable Reason for Visit Reason Onset Date Comments Transplant 06/17/2022 Covid reassessment Encounter Details Date Type Department Care Team Description 06/17/2022 Telephone [facility] Gretta Peacock RN Trans plant [facility] [address] [place] [phone] Social History Tobacco Use Types Packs/Day [...] Covid + 06/01/2022 with inpatient stay at [facility] where MMF was held. Resumed MMF at [...] 750mg bid OUTCOME: Patient was readmitted to [facility] with complications of Covid 19 per patient. Difficult to hear patient as he has bad cell phone service at hospital. Spoke with staff member on inpatient unit. Patient is private information unable to be given to RNCC. Provided provider to providernumber to staff member to pass along to RN or inpatient provider. V/U of calling [facility] transplant nephrology to discuss IS. Gretta Peacock pressure tester operatorWelding Equipment Sales Representative [phone] documented in this encounter Plan of Treatment Not on filedocumented as of this encounter Visit Diagnoses Not on filedocumented in this encounter Care Teams Rib Bender Relationship Specialty Start Date End Date Momo Forbes PCP - General Family Practice 01/02/14 [facility] [address] [place] [address] Joseph Quintana, Assigned Nephrology 03/29/21 MD Provider [address] [place] [address] 1932 [place] [address] documented as of this encounter
--- OUTSIDE RECORDS SUMMARY | 2022-06-28 13:15 | XMS_ITS | Encounter Summary ---
:1950 Author Organization [place] Address [address] [place] [address] Care Team Providers Name Role Phone Forbes, Momo He Primary Care Provider Reason for Visit Reason Onset Date Comments Transplant Immunosuppression Management 09/08/2020 Encounter Details Date Type Department Care Team Description 09/08/2020 Telephone [facility] Tram, Transplant Transplant Clinic Barbie Nam, Rc [address] [place] [address] [place] [address] Social History Tobacco Use Types [...] Barbie Ugalde RN - 09/09/2020 3:06 PM PAIRER ODDS Second call placed to patient and voicemail message left. ER ODDS Telephone Encounter - Barbie Ugalde RN - 09/08/2020 10:31 AM PAIRER ODDS Images from the original note were not included. Message Received: 3 days ago Message Contents Beny Staton, [facility] Barbie Ugalde, BOGDAN ?? Latrell has not filled immunos since 07/21. ??His tacro dose changed and he has not filled the 0.5mg in over a year. ??He has not returned our calls. ?? Beny Staton [facility] Specialty Pharmacist [phone] OUTCOME: Tacrolimus dose was decreased from 2mg [...] is currently taking and need labs. ER ODDS documented in this encounter Plan of Treatment Not on filedocumented as of this encounter Visit Diagnoses Not on filedocumented in this encounter Care Teams Cardiology Nurse Relationship Specialty Start Date End Date Momo Forbes PCP - General Family Practice 01/02/[address] [address] documented as of this encounter
--- OUTSIDE RECORDS SUMMARY | 2022-06-28 13:15 | XMS_ITS | Encounter Summary ---
:1950 Author Organization [place] Address [address] [place] [address] Care Team Providers Name Role Phone Momo Forbes Primary Care Provider Joseph Quintana MD Unavailable Encounter Details Date Type Department Care Team Description 05/16/2019 External Order [facility] Nurse, Santi Txc Afterca re following organ transplant; Results Transplant Clinic Kidney replaced by transplan t; [address] [place] [address] Encounter for long-term curr [place] [address] Social History Tobacco Use Types [...] procedure are in Kidney replaced by [facility] ts transplant section. Encounter for long-term current use of medication PROTEIN RANDOM URINE Routine 05/16/2019 3:36 PM Aftercare foll owing Results for this CDT organ transplant procedure are in Kidney replaced by [facility] ts transplant section. Encounter for [...] (if ml/min/1.7 [place]) 3m2 (External) GFR Estimated 56 (L) >60 [...] edication documented in this encounter Care Teams Compressed Air Pile Driver Operator Relationship Specialty Start Date End Date Momo Forbes PCP - General Family Practice 01/02/14 [facility] 1999 [place] [address] Joseph Quintana, Assigned Nephrology 03/29/21 MD Provider 7 [facility] 353 [facility] 1932 [place] [address] documented as of this encounter
--- OUTSIDE RECORDS SUMMARY | 2022-06-28 13:15 | XMS_ITS | Encounter Summary ---
:1950 Author Organization [place] Address [address] [place] [address] Care Team Providers Name Role Phone Momo Forbes Primary Care Provider Reason for Visit Reason Onset Date Comments Kidney Transplant 05/20/2019 Encounter Details Date Type Department Care Team Description 05/20/2019 Telephone [facility] Estefania Nguyen Transplant Transplant Clinic Amanda Fletcher RN [address] [place] [phone] Social History Tobacco Use Types Packs/Day [...] not charted as 12 hour trough. ?? Plan/HAT BRAIDER task: ?? Please confirm timing of lab draw. If this was not a 12 hour level, please repeat labs in May and ensure 12 hour trough level with lab draw. Enter lab orders if needed Telephone Encounter - Amanda Nguyen RN - 05/20/2019 5:38 PM CDT Issue: Tac 4.6 - however this is not charted as 12 hour trough. Plan/HAT BRAIDER task: Please confirm timing of lab draw. If this was not a 12 hour level, please repeat labs in May and ensure 12 hour trough level with lab draw. Enter lab orders if needed. documented in this encounter Plan of Treatment Not on filedocumented as of this encounter Visit Diagnoses Not on filedocumented in this encounter Care Teams Casting Coordinator Relationship Specialty Start Date End Date Momo Forbes PCP - General Family Practice 01/02/14 [facility] 1999 [place] [address] documented as of this encounter
--- OUTSIDE RECORDS SUMMARY | 2022-06-28 13:15 | XMS_ITS | Encounter Summary ---
:1950 Author Organization [place] Address [address] [facility] [place] [address] Care Team Providers Name Role Phone Momo Forbes Primary Care Provider Reason for Visit Reason Onset Date Comments Refill Request 03/18/2020 Mycophenolate and Pr ograf 1mg Encounter Details Date Type Department Care Team Description 03/18/[address] [facility] Mariano, Joseph Refill R equest Nephrology Clinic MD Herminio (Mycophenolate and Strawn [address] [place] [address] SE Prograf 1mg) 909 [facility] RANJAN 353 [facility] 1932 [place], [place] [phone] Social History Tobacco Use Types Packs/Day Years [...] transplant documented in this encounter Care Teams Groundman/Lineman Relationship Specialty Start Date End Date Momo Forbes PCP - General Family Practice 01/02/14 [facility] 1999 [place] [address] documented as of this encounter
--- OUTSIDE RECORDS SUMMARY | 2022-06-28 13:15 | XMS_ITS | Encounter Summary ---
:1950 Author Organization [place] Address [address] [facility] [place] [address] Care Team Providers Name Role Phone Momo Forbes Primary Care Provider Joseph Quintana MD Unavailable Encounter Details Date Type Department Care Team Description 05/26/2020 External Order [facility] Outside, Provider Results Transplant Clinic [address] [place] [address] Social History Tobacco Use Types [...] on filedocumented in this encounter Care Teams Secondary Social Studies Teacher Relationship Specialty Start Date End Date Momo Forbes PCP - General Family Practice 01/02/14 [facility] [address] [place] [address] Joseph Quintana, Assigned Nephrology 03/29/21 MD Provider 7 [facility] [address] [facility] [address] [place], [place] [address] documented as of this encounter
--- OUTSIDE RECORDS SUMMARY | 2022-06-28 13:15 | XMS_ITS | Encounter Summary ---
:1950 Author Organization [place] Address [address] [place] [address] Care Team Providers Name Role Phone Forbes, Momo He Primary Care Provider Reason for Visit Reason Onset Date Comments Transplant Lab 05/28/2020 Encounter Details Date Type Department Care Team Description 05/28/2020 Telephone [facility] Barbie Ugalde nsplant Lab Transplant Clinic BOGDAN Nam [address] [place] [address] [phone] Social History Tobacco Use Types [...] mg/dL on 05/26/20 at 1025 collected at [facility] [phone] (Phone) CBC appears as expected Missing BMP [...] filedocumented in this encounter Care Teams Machine Heddle Cleaner Relationship Specialty Start Date End Date Momo Forbes PCP - General Family Practice 01/02/14 [facility] [address] [place] [address] documented as of this encounter
--- OUTSIDE RECORDS SUMMARY | 2022-06-28 13:15 | XMS_ITS | Encounter Summary ---
:1950 Author Organization [place] Address [address] [place] [address]. [place] [address] Care Team Providers Name Role Phone Momo Forbes Primary Care Provider Encounter Details Date Type Department Care Team Description 09/26/2019 Medical Correspondence [facility] [place] Scan, BLOOD GLUCOSE LOG Health Info Mgmt Non-Provider Srvcs [address] [place] [address] Social History Tobacco Use Types Packs/Day [...] filedocumented in this encounter Care Teams Java Swing Developer Relationship Specialty Start Date End Date Momo Forbes PCP - General Family Practice 01/02/14 [facility] [address] [place] [address] documented as of this encounter
--- OUTSIDE RECORDS SUMMARY | 2022-06-28 13:15 | XMS_ITS | Encounter Summary ---
:1950 Author Organization [place] Address [address] [facility] [place] [address] Care Team Providers Name Role Phone Momo Forbes Primary Care Provider Joseph Quintana MD Unavailable Encounter Details Date Type Department Care Team Description 07/08/2020 External Order [facility] Outside, Provider Results Transplant Clinic 9 [place] [address] Social History Tobacco Use [...] 9:23 AM R esults for this DIFFERENTIAL CORPORATE FINANCIAL ANALYST procedure are i n the results section. TACROLIMUS BY TANDEM Routine 07/08/2020 9:23 AM R esults for this MASS SPECTROMETRY CORPORATE FINANCIAL ANALYST procedure are in the results section. PROTEIN RANDOM URINE Routine 07/08/2020 9:23 AM R esults for this CORPORATE FINANCIAL ANALYST procedure are i n the results section. HEMOGLOBIN A1C Routine 07/08/2020 9:23 AM Results for this CORPORATE FINANCIAL ANALYST procedure are i n the results section. HEMOGLOBIN A1C Routine 07/08/2020 9:23 AM Results for this CORPORATE FINANCIAL ANALYST procedure are i n the results section. BASIC METABOLIC PANEL Routine 07/08/2020 9:23 AM Results for this CORPORATE FINANCIAL ANALYST procedure are i n the results section. documented in this encounter Results (ABNORMAL) Protein random urine with Creat Ratio (07/08/2020 9:23 AM CORPORATE FINANCIAL ANALYST) Analysis Performed At [facility] Time Signature Protein Random 73 mg/dL LABDE SCAN Urine (External) Creatinine 65 mg/dL LABDE SCAN Urine mg/dL (External) Protein Total 1.12 (H) 0 - 0.19 LABDE SCAN Ur per Cr (External) Specimen (Source) Anatomical Collection Method Collection Time Re ceived Time Location / / Volume Laterality Urine specimen 07/08/2020 9:23 AM (specimen) CORPORATE FINANCIAL ANALYST Narrative [facility] - 07/11/2020 11:13 AM CORPORATE FINANCIAL ANALYST Verified by Praful Huff on 2019. Patient Reported LAB - URINE ORDERABLES Performing Organization Address City/State/ZIP Code Phon e Number [facility] LABDE SCAN (ABNORMAL) Hemoglobin A1c (07/08/2020 9:23 AM CORPORATE FINANCIAL ANALYST) Analysis Performed At [facility] Time Signature Hemoglobin A1C 12.3 (H) 0 - 5.6 % LABDE SCAN (External) Specimen (Source) Anatomical Collection Method Collection Time Re ceived Time Location / / Volume Laterality Blood specimen 07/08/2020 9:23 AM (specimen) CORPORATE FINANCIAL ANALYST Narrative [facility] - 07/11/2020 11:13 AM CORPORATE FINANCIAL ANALYST Verified by Praful Huff on 2019. Patient Reported LAB - BLOOD ORDERABLES Performing Organization Address City/[facility]/ZIP Code Phon e Number [facility] LABDE SCAN Tacrolimus level (07/08/2020 9:23 AM CORPORATE FINANCIAL ANALYST) P athologist Signature Tacrolimus(FK- 2.2 See scanned LABDE SCAN 506) report ng/mL (External) Specimen (Source) Anatomical Collection Method Collection Time Re ceived Time Location / / Volume Laterality Blood specimen 07/08/2020 9:23 AM (specimen) CORPORATE FINANCIAL ANALYST Narrative [facility] - 07/11/2020 11:13 AM CORPORATE FINANCIAL ANALYST Verified by Praful Huff on 2019. Patient Reported LAB - BLOOD ORDERABLES Performing Organization Address City/State/ZIP Code Phon e Number [facility] LABDE SCAN (ABNORMAL) Hemoglobin A1c (07/08/2020 9:23 AM CORPORATE FINANCIAL ANALYST) Analysis Performed At [facility] logist Time Signature Hemoglobin A1C 12.3 (H) 0 - 5.6 % LABDE SCAN (External) Specimen (Source) Anatomical Collection Method Collection Time Re ceived Time Location / / Volume Laterality Blood specimen 07/08/2020 9:23 AM (specimen) CORPORATE FINANCIAL ANALYST Narrative MARLENEE PFT - 07/09/2020 11:03 AM CORPORATE FINANCIAL ANALYST Verified by Andrade Barajas on 07/09/2020. Patient Reported LAB - BLOOD ORDERABLES Performing Organization Address City/State/ZIP Code Phon e Number [facility] LABDE SCAN (ABNORMAL) Basic metabolic panel (07/08/2020 9:23 AM CORPORATE FINANCIAL ANALYST) Analysis Performed At [facility] logist Time Signature Calcium 10.1 [...] Laterality Blood specimen 07/08/2020 9:23 AM (specimen) CORPORATE FINANCIAL ANALYST Narrative JESSICA PFT - 07/09/2020 11:02 AM CORPORATE FINANCIAL ANALYST Verified by Andrade Barajas on 07/09/2020. Patient Reported LAB - BLOOD ORDERABLES Performing Organization Address City/State/ZIP Code Phon e Number [facility] LABDE SCAN (ABNORMAL) CBC with platelets differential (07/08/2020 9:23 AM CORPORATE FINANCIAL ANALYST) [facility] gist Method Time Signature WBC Count 4.32 [...] Laterality Blood specimen 07/08/2020 9:23 AM (specimen) CORPORATE FINANCIAL ANALYST Narrative JESSICA PFT - 07/09/2020 10:52 AM CORPORATE FINANCIAL ANALYST Verified by Praful Huff on 2019. Patient Reported LAB - BLOOD ORDERABLES Performing Organization Address City/State/ZIP Code Phon e Number [facility] LABDE SCAN documented in this encounter Visit Diagnoses Not on filedocumented in this encounter Care Teams Livestock Farmers Relationship Specialty Start Date End Date Momo Forbes PCP - General Family Practice 01/02/14 [place] [id number] Joseph Quintana, Assigned Nephrology 03/29/21 MD Provider [address] [place] [address] documented as of this encounter
--- OUTSIDE RECORDS SUMMARY | 2022-06-28 13:15 | XMS_ITS | Encounter Summary ---
:1950 Author Organization [place] Address [address] [facility] [place] [address] Care Team Providers Name Role Phone Momo Forbes Primary Care Provider Reason for Visit Reason Onset Date Comments Transplant Pharmacy Medication Review 01/10/2019 Encounter Details Date Type Department Care Team Description 01/10/2019 Telephone [facility] Meghan Mccormack [facility] [address] [facility] [place] [place] [address] PHARMACY [phone] [place] [phone] (Wo rk) Social History Tobacco Use Types [...] filedocumented in this encounter Care Teams Etl Bi Developer Relationship Specialty Start Date End Date Momo Forbes PCP - General Family Practice 01/02/14 [facility] [address] [place] [address] documented as of this encounter
--- OUTSIDE RECORDS SUMMARY | 2022-06-28 13:15 | XMS_ITS | Encounter Summary ---
:1950 Author Organization [place] Address Count includes the [facility] [place] [address] Care Team Providers Name Role Phone Momo Forbes Primary Care Provider Reason for Visit Reason Onset Date Comments Refill Request 02/04/2020 prograf, mycophenola te Encounter Details Date Type Department Care Team Description 02/04/2020 [facility]ill [facility] Spong, Joseph Refill R equest Transplant Clinic MD Herminio (prograf, [address] [facility] [address] [facility] mycophenolate) [facility] [address] [facility] [address] [phone] [place] [address] (Wo rk) Social History Tobacco [...] transplant documented in this encounter Care Teams Analyst Sales Relationship Specialty Start Date End Date Momo Forbes PCP - General Family Practice 01/02/14 [facility] [address] [place] [address] documented as of this encounter
--- OUTSIDE RECORDS SUMMARY | 2022-06-28 13:15 | XMS_ITS | Encounter Summary ---
:1950 Author Organization [place] Address [address] [place] [address] Care Team Providers Name Role Phone Momo Forbes Primary Care Provider Encounter Details Date Type Department Care Team Description 05/16/2019 Orders Only [facility] Loy Morales, Aft ercare following organ transplant; [facility] Kidney replaced by transplant; Laboratory [address] [facility] Encounter for long-term curr ent use of medication [address] [place] [address] [phone] (Wo rk) Social History Tobacco Use Types [...] (ABNORMAL) Tacrolimus level (05/16/2019 3:43 PM CDT) [facility] Method Time Signature Tacrolimus Last 05/1605/18/2019 [facility] 1230AM 11:28 AM CDT [facility] Tacrolimus 4.6 (L) 5.0 - 05/18/2019 [facility] 15.0 ug/L 4:11 PM CDT MEDICAL CENTER [...] Phon e Number [facility] [address] [place], [place] [phone] [place] [address] documented in this encounter Visit Diagnoses Diagnosis Aftercare following organ transplant Kidney replaced by transplant Encounter for long-term current use of m edication documented in this encounter Care Teams Electric Motor Controls Assembler Relationship Specialty Start Date End Date Momo Forbes PCP - General Family Practice 01/02/14 [facility] [address] [place] [address] documented as of this encounter
--- OUTSIDE RECORDS SUMMARY | 2022-06-28 13:15 | XMS_ITS | Encounter Summary ---
:1950 Author Organization [place] Address [facility] [address] Care Team Providers Name Role Phone Momo Forbes Primary Care Provider Reason for Visit Reason Onset Date Comments Refill Request 05/07/2020 Mycophenplate and Pr ograf Encounter Details Date Type Department Care Team Description 05/07/2020 Refill [facility] Joseph Quintana Refill R equest Nephrology Clinic MD Herminio (Mycophenplate and [address] Prograf) [address] [place] [address] [phone] Social History Tobacco Use Types Packs/Day Years [...] transplant documented in this encounter Care Teams Video Control Engineer Relationship Specialty Start Date End Date Momo Forbes PCP - General Family Practice 01/02/14 [facility] [address] [place] [address] documented as of this encounter
--- OUTSIDE RECORDS SUMMARY | 2022-06-28 13:15 | XMS_ITS | Encounter Summary ---
:1950 Author Organization [place] Address [facility] [place] [address] Care Team Providers Name Role Phone Momo [...] on filedocumented in this encounter Care Teams Crew Person Relationship Specialty Start Date End Date Momo Forbes PCP - General Family Practice 01/02/14 [facility] [address] [place] [address] documented as of this encounter
--- OUTSIDE RECORDS SUMMARY | 2022-06-28 13:15 | XMS_ITS | Encounter Summary ---
:1950 Author Organization [place] Address [address] [place] [address] Care Team Providers Name Role Phone Forbes, Ton Primary Care Provider Reason for Visit Reason Comments Clinic Care Coordination - Follow-up Encounter Details Date Type Department Care Team Description 11/16/2019 Care Coordination [facility] Sejal Rodriguez Nephrology Clinic BOGDAN Llanos Coordination - [place] [phone] Follow-up 9 [facility] (Work) [place] [address] Social History Tobacco Use Types Packs/Day Years Used Date Smoking Tobacco: Former Cigars Quit : 08/22/2006 Smokeless Tobacco: Never Alcohol Use Standard Drinks/Week Comments Yes 0 (1 standard drink = 0.6 oz pure alcoho l) occasional drink. Sex Assigned at Date Recorded Not on file documented as of this encounter Progress Notes Roim Rodriguez RN - 11/16/2019 9:49 AM CDT [...] on filedocumented in this encounter Care Teams Review Engineer Relationship Specialty Start Date End Date Momo Forbes PCP - General Family Practice 01/02/14 [facility] [address] [place] [address] documented as of this encounter
--- OUTSIDE RECORDS SUMMARY | 2022-06-28 13:15 | XMS_ITS | Encounter Summary ---
:1950 Author Organization [place] Address [facility] [place] [address] Care Team Providers Name Role Phone Momo Forbes Primary Care Provider Joseph Quintana MD Unavailable Encounter Details Date Type Department Care Team Description 07/08/2020 External Order [facility] Outside, Provider Results Transplant Clinic [address] [place] [address] Social History Tobacco Use Types Packs/Day [...] 9:23 AM Results f or this RESULTS STOKER INSTALLER procedure are i n the results section. documented in this encounter Results External Lab Results (07/08/2020 9:23 AM STOKER INSTALLER) Analysis Performed At Patho logist Time Signature Scan Lab View Image LABDE SCAN Results (External) Comment: HLA Antibody Screen, Class I an d Class II Specimen (Source) Anatomical Collection Method Collection Time Re ceived Time Location / / Volume Laterality 07/08/2020 9:23 AM STOKER INSTALLER Narrative JESSICA PFT - 07/16/2020 2:42 PM STOKER INSTALLER Verified by Ruperto Pepper on 07/15/20 20. Patient Reported LABORATORY Performing Organization Address City/State/ZIP Code Phon e Number [facility] LABDE SCAN documented in this encounter Visit Diagnoses Not on filedocumented in this encounter Care Teams Aircraft Structural Fitter Relationship Specialty Start Date End Date Momo Forbes PCP - General Family Practice 01/02/14 [facility] [address] [place] [address] Joseph Quintana, Assigned Nephrology 03/29/21 MD Provider [address] [place] [address] [address] [place], [place] [id number] documented as of this encounter
--- OUTSIDE RECORDS SUMMARY | 2022-06-28 13:15 | XMS_ITS | Encounter Summary ---
:1950 Author Organization [place] Address [address] [facility] [place] [address] Care Team Providers Name Role Phone Momo Forbes Primary Care Provider Joseph Quintana MD Unavailable Encounter Details Date Type Department Care Team Description 05/26/2020 External Order [facility] Outside, Provider Results Transplant Clinic 9 [place] [address] Social History Tobacco Use Types [...] with platelets differential (05/26/2020 10:25 AM CDT) [facility] gist Method Time Signature WBC Count [...] filedocumented in this encounter Care Teams Package Line Operator Relationship Specialty Start Date End Date Momo Forbes PCP - General Family Practice 01/02/14 [facility] [address] [place] [address] Joseph Quintana, Assigned Nephrology 03/29/21 MD Provider [address] [place] [address] [address] [facility] [address] [place], [place] [id number] documented as of this encounter
--- OUTSIDE RECORDS SUMMARY | 2022-06-28 13:15 | XMS_ITS | Encounter Summary ---
:1950 Author Organization [place] Address [address] [place] [address]. [place] [address] Care Team Providers Name Role Phone Momo Forbes Primary Care Provider Encounter Details Date Type Department Care Team Description 09/25/2019 Medical Correspondence [facility] Scan, PATIENT BLOOD Health Info Mgmt Non-Provider GLUCOSE SIVAKUMAR LEMUS Srvcs [address] [place] [address] Social History Tobacco Use Types [...] filedocumented in this encounter Care Teams Hand Edger Relationship Specialty Start Date End Date Momo Forbes PCP - General Family Practice 01/02/14 [facility] [address] [place] [address] documented as of this encounter
--- OUTSIDE RECORDS SUMMARY | 2022-06-28 13:15 | XMS_ITS | Encounter Summary ---
:1950 Author Organization [place] Address [facility] [address] Care Team Providers Name Role Phone Momo [...] in this encounter Care Teams Airport Operations Specialist Relationship Specialty Start Date End Date Momo Forbes PCP - General Family Practice 01/02/14 [facility] [address] [place] [address] documented as of this encounter
--- OUTSIDE RECORDS SUMMARY | 2022-06-28 13:15 | XMS_ITS | Encounter Summary ---
:1950 Author Organization [place] Address [address] [place] [address] Care Team Providers Name Role Phone Momo Forbes Primary Care Provider Reason for Visit Reason Comments RECHECK Post kid tx f/u Encounter Details Date Type Department Care Team Description 10/09/[address] [facility] Shiva Presley MD [facility] [address] [facility] [address] [place] [address] Kidney transplanted (Primary Dx); Nephrology Clinic , Kidney/Pancreas Recipient Need for influenza vaccination; [place] HTN, kidney transplant relat ed; [address] Immunosupp ression (H); SE Skin cancer screening; [place], [place] Hypovitamino sis [place] [address] Social History [...] Comments Blood Pressure 169/76 10/09/2019 2:35 PM AUDIO VISUAL ARTS DIRECTOR Pulse 67 10/09/2019 2:35 PM AUDIO VISUAL ARTS DIRECTOR Temperature - - Respiratory Rate - - Oxygen Saturation 95% 10/09/2019 2:35 PM AUDIO VISUAL ARTS DIRECTOR Inhaled Oxygen Concentration - - Weight 132.5 kg (292 lb 1.6 oz) 10/09/2019 2:35 PM AUDIO VISUAL ARTS DIRECTOR Height - - Body Mass Index 39.62 10/10/2017 2:25 PM AUDIO VISUAL ARTS DIRECTOR documented in this encounter Progress Notes Shiva [...] being entered into the official medical record. O VISUAL ARTS DIRECTOR documented in this encounter Nursing Notes Josseline Recinos RN - 10/09/2019 2:45 PM CST Diego Guthrie was seen today in clinic by this copywriter. Medications, lab orders, lab frequency,and necessary follow up discussed with patient. Patient was provided with a copy of the current lab letter. Patient voiced understanding and agreement of education and plan. Josseline Recinos RN O VISUAL ARTS DIRECTOR Jeanette Finley CMA - 10/09/2019 2:45 PM CST Chief Complaint Patient presents with ??? RECHECK Post kid tx f/u Blood pressure (!) 169/76, pulse 67, weight 132.5 kg (292 lb 1.6 oz), SpO2 95 %. Jeanette Finley CMA O VISUAL ARTS DIRECTOR documented in this encounter Plan of [...] deficiency documented in this encounter Care Teams All Around Patternmaker Relationship Specialty Start Date End Date Momo Forbes PCP - General Family Practice 01/02/14 [facility] [address] [place] [address] documented as of this encounter
--- OUTSIDE RECORDS SUMMARY | 2022-06-28 13:15 | XMS_ITS | Encounter Summary ---
:1950 Author Organization [place] Address [facility] [place] [address] Care Team Providers Name Role Phone Forbes, Ton Primary Care Provider Reason for Visit Reason Onset Date Comments Transplant Immunosuppression Management 08/11/2020 Encounter Details Date Type Department Care Team Description [facility] BOGDAN Nam Immunosuppression [address] [place] [address] [place] [address] Social History Tobacco Use Types [...] Barbie Ugalde RN - 08/11/2020 4:16 PM METAL BENCH PATTERNMAKER ISSUE: Tacrolimus IR level 11.7 on 08/08/20, [...] Organ Transplant, Post Kidney and Pancreas Transplant Land Surveyor [phone] OUTCOME: Spoke with patient, they confirm accurate trough level and current dose 2 mg BID. Patient confirmed dose change to 1.5 mg BID and to repeat labs in 1 weeks. Orders sent to preferred pharmacy for dose change and lab for repeat labs. Patient voiced understanding of plan. L BENCH PATTERNMAKER documented in this encounter Plan of Treatment Not on filedocumented as of this encounter Visit Diagnoses Diagnosis Kidney transplanted - Primary Kidney replaced by transplant -donor kidney transplant recipie nt Kidney replaced by transplant documented in this encounter Care Teams Gum Machine Filler Relationship Specialty Start Date End Date Momo Forbes PCP - General Family Practice 01/02/14 [facility] [address] [place] [address] documented as of this encounter
--- OUTSIDE RECORDS SUMMARY | 2022-06-28 13:15 | XMS_ITS | Encounter Summary ---
:1950 Author Organization [place] Address [address] [place] [address] Care Team Providers Name Role Phone Momo Forbes Primary Care Provider Joseph Quintana MD Unavailable Encounter Details Date Type Department Care Team Description 08/08/2020 External Order [facility] Outside, Provider Results Transplant Clinic [address] [place] [address] Social History Tobacco Use Types [...] 08/08/2020 11:43 Results f or this AM TELEPHONE ORDER CLERK procedure are i n the results section. TACROLIMUS BY TANDEM Routine 08/08/2020 11:34 Res ults for this MASS SPECTROMETRY AM TELEPHONE ORDER CLERK procedure are in the results section. LIPID PROFILE Routine 08/08/2020 11:34 Results fo r this AM TELEPHONE ORDER CLERK procedure are i n the results section. ALT Routine 08/08/2020 11:34 Results for this AM TELEPHONE ORDER CLERK procedure are i n the results section. BASIC METABOLIC PANEL Routine 08/08/2020 11:34 Re sults for this AM TELEPHONE ORDER CLERK procedure are i n the results section. documented in this encounter Results (ABNORMAL) Hemoglobin A1c (08/08/2020 11:43 AM TELEPHONE ORDER CLERK) Analysis Performed At [facility] Time Signature Hemoglobin A1C 10.2 (H) <=6.9 % LABDE SCAN (External) Specimen (Source) Anatomical Collection Method Collection Time Re ceived Time Location / / Volume Laterality Blood specimen 08/08/2020 11:43 (specimen) AM TELEPHONE ORDER CLERK Narrative [facility] - 08/11/2020 1:28 PM TELEPHONE ORDER CLERK Verified by Praful Huff on 2019. Patient Reported LAB - BLOOD ORDERABLES Performing Organization Address City/State/ZIP Code Phon e Number [facility] LABDE SCAN Tacrolimus level (08/08/2020 11:34 AM TELEPHONE ORDER CLERK) P athologist Signature Tacrolimus(FK-5 11.7 See scan LABDE SCAN 06) (External) ng/mL Specimen (Source) Anatomical Collection Method Collection Time Re ceived Time Location / / Volume Laterality Blood specimen 08/08/2020 11:34 (specimen) AM TELEPHONE ORDER CLERK Narrative [facility] - 08/11/2020 1:28 PM TELEPHONE ORDER CLERK Verified by Praful Huff on 2019. Patient Reported LAB - BLOOD ORDERABLES Performing Organization Address City/State/ZIP Code Phon e Number [facility] LABDE SCAN (ABNORMAL) Lipid Profile (08/08/2020 11:34 AM TELEPHONE ORDER CLERK) Patholo gist Method Time Signature Cholesterol 79 (L) 90 - 200 LABDE SCAN (External) MG/DL Triglycerides 86 40 - 197 LABDE SCAN (External) MG/DL LDL-Cholesterol 29 <100 mg/dL LABDE SCAN (External) HDL Cholesterol 33 (L) >=40 mg/dL LABDE SCAN (External) Specimen (Source) Anatomical Collection Method Collection Time Re ceived Time Location / / Volume Laterality Blood specimen 08/08/2020 11:34 (specimen) AM TELEPHONE ORDER CLERK Narrative [facility] - 08/11/2020 1:28 PM TELEPHONE ORDER CLERK Verified by Praful Huff on 2019. Patient Reported LAB - BLOOD ORDERABLES Performing Organization Address City/State/ZIP Code Phon e Number [facility] LABDE SCAN ALT (08/08/2020 11:34 AM TELEPHONE ORDER CLERK) P athologist Signature ALT (External) 8 4 - 50 U/L LABDE SCAN Specimen (Source) Anatomical Collection Method Collection Time Re ceived Time Location / / Volume Laterality Blood specimen 08/08/2020 11:34 (specimen) AM TELEPHONE ORDER CLERK Narrative [facility] - 08/11/2020 1:28 PM TELEPHONE ORDER CLERK Verified by Praful Huff on 2019. Patient Reported LAB - BLOOD ORDERABLES Performing Organization Address City/State/ZIP Code Phon e Number [facility] LABDE SCAN (ABNORMAL) Basic metabolic panel (08/08/2020 11:34 AM TELEPHONE ORDER CLERK) P athologist Signature Glucose 119 (H) 60 [...] Laterality Blood specimen 08/08/2020 11:34 (specimen) AM TELEPHONE ORDER CLERK Narrative [facility] - 08/11/2020 1:28 PM TELEPHONE ORDER CLERK Verified by Praful Huff on 2019. Patient Reported LAB - BLOOD ORDERABLES Performing Organization Address City/State/ZIP Code Phon e Number [facility] LABDE SCAN documented in this encounter Visit Diagnoses Not on filedocumented in this encounter Care Teams Sexer Relationship Specialty Start Date End Date Momo Forbes PCP - General Family Practice 01/02/14 [facility] [address] [place] [address] Joseph Quintana, Assigned Nephrology 03/29/21 MD Provider 7 [facility] [address] [facility] [address] [place], [place] [id number] documented as of this encounter
--- OUTSIDE RECORDS SUMMARY | 2022-06-28 13:15 | XMS_ITS | Encounter Summary ---
:1950 Author Organization [place] Address [facility] [place] [address] Care Team Providers Name Role Phone Momo Forbes Primary Care Provider Reason for Visit Reason Onset Date Comments Critical Values 07/08/2020 Encounter Details Date Type Department Care Team Description 07/08/2020 Telephone [facility] Cristy Chen LPN C ritical Values Transplant Clinic [address] [place] [address] [phone] Social History Tobacco Use Types Packs/Day Years Used Date Smoking Tobacco: Former Cigars Quit : 08/22/2006 Smokeless Tobacco: Never Alcohol Use Standard Drinks/Week Comments Yes 0 (1 standard drink = 0.6 oz pure alcoho l) occasional drink. 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 Per Dr. Huerta from visit in 10/09/19: # Diabetes: Poorly controlled (HbA1c >9%) Last HbA1c: 13.7%. - Management as per primary care. - Recommended all blood sugars stay below 200, with fasting between 90 and 130. ?? Latrell states that he lost his blood sugar meter but he can pick one up at [facility]. He asked how often he should [...] level. Latrell states he returns to 08/08. P WINDER Telephone Encounter - Cristy Chen LPN - 07/08/2020 3:39 PM CST DATE: 07/08/2020 TIME OF RECEIPT FROM LAB: 3:30 PM LAB TEST: Glucose LAB VALUE: 407 RESULTS GIVEN WITH READ-BACK TO (PROVIDER): Barbie Ugalde RN TIME LAB VALUE REPORTED TO PROVIDER: 3:39 PM P WINDER documented in this encounter Plan of Treatment Not on filedocumented as of this encounter Visit Diagnoses Not on filedocumented in this encounter Care Teams Business Intelligence Architect Relationship Specialty Start Date End Date Momo Forbes PCP - General Family Practice 01/02/14 [facility] [address] [place] [address] documented as of this encounter
--- OUTSIDE RECORDS SUMMARY | 2022-06-28 13:15 | XMS_ITS | Encounter Summary ---
:1950 Author Organization [place] Address [address] [place] [address] Care Team Providers Name Role Phone Momo Forbes Primary Care Provider Reason for Visit Reason Onset Date Comments Transplant Immunosuppression Management 07/03/2020 Late to refill Encounter Details Date Type Department Care Team Description 07/03/2020 Telephone [facility] Tram, Transplant Transplant Clinic Barbie Nam, Immunosuppression [address] [place] [address] RN Management (Late to [place], [place] refill) [phone] Social History Tobacco Use [...] Barbie Ugalde RN - 07/03/2020 10:20 AM HUMAN RESOURCES RECRUITER Images from the original note were not included. Late to fill IS meds Received: Yesterday Message Contents Meghan Mccormack, [facility] Barbie Ugalde RN ?? Hi Diego [...] copy to patient so he is aware. N RESOURCES RECRUITER documented in this encounter Plan of Treatment Not on filedocumented as of this encounter Visit Diagnoses Diagnosis -donor kidney transplant recipie nt Kidney replaced by transplant Kidney transplanted Kidney replaced by transplant documented in this encounter Care Teams Blood Splatter Analyst Relationship Specialty Start Date End Date Momo Forbes PCP - General Family Practice 01/02/[address] [address] documented as of this encounter
--- OUTSIDE RECORDS SUMMARY | 2022-06-28 13:15 | XMS_ITS | Encounter Summary ---
:1950 Author Organization [place] Address [address] [facility] [place] [address] Care Team Providers Name Role Phone Momo Forbes Primary Care Provider Reason for Visit Reason Onset Date Comments Transplant Lab 01/29/2020 overdue labs Encounter Details Date Type Department Care Team Description 01/29/2020 Telephone [facility] Barbie Ugalde Tra nsplant Lab Transplant Clinic BOGDAN Nam (overdue labs) [address] [place] [phone] Social History Tobacco Use Types Packs/Day [...] a kit for blood work sent to [facility] as requested. Explained kits are no longer being used for drug levels but new orders could be sent to lab if needed. [facility] [phone] (Phone) [facility] has annual order on file sent September 2019 and can fax to their new [facility] location that opened 2 weeks ago. Patient seen provider in [facility] who meryl Hemoglobin A1C and BMP [...] filedocumented in this encounter Care Teams Senior Quality Technician Relationship Specialty Start Date End Date Momo Forbes PCP - General Family Practice 01/02/14 [facility] [address] [place] [address] documented as of this encounter
--- OUTSIDE RECORDS SUMMARY | 2022-06-28 13:15 | XMS_ITS | Encounter Summary ---
:1950 Author Organization [place] Address [address] [place] [address]. [place] [address] Care Team Providers Name Role Phone Momo Forbes Primary Care Provider Reason for Visit Reason Onset Date Comments Refill Request 02/28/2019 Encounter Details Date Type Department Care Team Description 02/28/[address] [facility] Shiva Presley MD Refill Request Nephrology Clinic [facility] [place] [phone] Social History Tobacco Use Types Packs/Day Years [...] disease documented in this encounter Care Teams Tanning Solution Maker Relationship Specialty Start Date End Date Momo Forbes PCP - General Family Practice 01/02/14 [facility] [address] [place] [address] documented as of this encounter
--- OUTSIDE RECORDS SUMMARY | 2022-06-28 13:15 | XMS_ITS | Encounter Summary ---
:1950 Author Organization [place] Address [facility] [place] [address] Care Team Providers Name Role Phone Momo Forbes Primary Care Provider Encounter Details Date Type Department Care Team Description [facility] BOGDAN Nam [address] [place], [place] [phone] Social History Tobacco Use [...] Barbie Ugalde RN - 10/23/2020 4:27 PM LABOR EMPLOYMENT ASSOCIATE Returned call and left second voicemail message. Patient mentioned in previous phone call he was interested in donating his body upon passing to [facility] for science. Please sent to following website for more information: [email or web address]/[email or web address] R EMPLOYMENT ASSOCIATE Telephone Encounter - Gladis Sosa RN - 10/23/2020 3:21 PM CST Patient Call: Voicemail Date/Time: 10/23/20 139pm Reason for call: Patient left a message requesting a call back R EMPLOYMENT ASSOCIATE documented in this encounter Plan of Treatment Not on filedocumented as of this encounter Visit Diagnoses Not on filedocumented in this encounter Care Teams Reporting Analyst Relationship Specialty Start Date End Date oMmo Forbes PCP - General Family Practice 01/02/14 [facility] [address] [place] [address] documented as of this encounter
--- OUTSIDE RECORDS SUMMARY | 2022-06-28 13:15 | XMS_ITS | Encounter Summary ---
:1950 Author Organization [place] Address [address] [place] [address] Care Team Providers Name Role Phone Momo Forbes Primary Care Provider Reason for Visit Reason Onset Date Comments Transplant 10/23/2020 Encounter Details Date Type Department Care Team Description 10/23/[address] [facility] Barbie Ugalde nsplant Transplant Clinic BOGDAN Nam [address] [place] [phone] Social History Tobacco Use Types [...] Barbie Ugalde RN - 10/23/2020 1:10 PM ROCK WOOL APPLICATOR Latrell reports his labs were done yesterday morning at [facility]. Last night ended upat ER at [facility]. Hospital printed out copy of labs and he is worried about creatinine. aLtrell states he had R foot infection that needed to be cleaned out; Had surgery last day of August onfoot at [facility]. Was hospitalized 10 days before going to [...] Call placed to [facility] lab to fax results. Per Lab need to speak with information management department to release records or go thru [facility] to have orders faxed. Call then returned [...] and repeating post-transplant labs in 1-2 weeks. WOOL APPLICATOR Telephone Encounter - Tasia Mack - 10/23/2020 10:03 AM CST Patient Call: Transplant Lab/Orders Route to WOVEN PAPER HAT MENDER Post Transplant Days: 2455 When patient is less than 60 days post-transplant, route high priority Reason for Call: Discuss lab results; which results? creatine level Callback needed? Yes Return Call Needed Same as documented in contacts section When to return call?: Greater than one day: Route standard priority WOOL APPLICATOR documented in this encounter Plan of Treatment Not on filedocumented as of this encounter Visit Diagnoses Not on filedocumented in this encounter Care Teams Regional Education Manager Relationship Specialty Start Date End Date Momo Forbes PCP - General Family Practice 01/02/14 [facility] [address] [place] [address] documented as of this encounter
--- OUTSIDE RECORDS SUMMARY | 2022-06-28 13:15 | XMS_ITS | Encounter Summary ---
:1950 Author Organization [place] Address [address] [place] [address] Care Team Providers Name Role Phone ForbesMomo Primary Care Provider Reason for Visit Reason Onset Date Comments Transplant 07/11/2020 Encounter Details Date Type Department Care Team Description 07/11/2020 Telephone [facility] Barbie Ugalde Transplant Clinic BOGDAN Nam [address] [place], [place] [phone] Social History Tobacco Use Types Packs/Day Years Used Date Smoking Tobacco: Former Cigars Quit : 08/22/2006 Smokeless Tobacco: Never Alcohol Use Standard Drinks/Week Comments Yes 0 (1 standard drink = 0.6 oz pure alcoho l) occasional drink. Sex Assigned at Date Recorded Not on file documented as of this encounter Miscellaneous Notes Telephone Encounter - Barbie Ugalde RN - 07/11/2020 2:11 PM GALVANIZER ZINC ISSUE: Potassium 5.2 on 07/08/20. PLAN: Assess for high dietary intake of potassium. Encouraged Diego to reduce the amount of bananas and potatoes he admitted to eating high amounts of. OUTCOME: Please have pt repeat BMP in 1 week. Orders sent ANIZER ZINC Telephone Encounter - Barbie Ugalde RN - 07/11/2020 1:41 PM GALVANIZER ZINC ISSUE: Tacrolimus IR level 2.2 on 07/08/20 [...] for repeatlabs. Patient voiced understanding of plan. 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
--- OUTSIDE RECORDS SUMMARY | 2022-06-28 13:15 | XMS_ITS | Encounter Summary ---
:1950 Author Organization [place] Address [address] [facility] [place] [address] Care Team Providers Name Role Phone ForbesMomo santiago A Primary Care Provider Reason for Visit Reason Onset Date Comments Kidney Transplant 07/12/2019 Encounter Details Date Type Department Care Team Description 07/12/2019 Telephone [facility] Estefania Nguyen Transplant Transplant Clinic Amanda Fletcher RN [address] [place] [phone] Social History Tobacco Use Types Packs/Day [...] left with instruction listed below. Order placed TACKER Telephone Encounter - Amanda Nguyen RN - 07/12/2019 12:23 PM HAND TACKER Clinic appt 07/17 at 4:45 Plan: Called patient to remind him of appt date/time. Asked that he complete labs prior to appt. SREEKANTH task: Please send one time lab order to complete all tx labs within the next week. TACKER documented in this encounter Plan of Treatment Not on filedocumented as of this encounter Visit Diagnoses Not on filedocumented in this encounter Care Teams Barge Engineer Relationship Specialty Start Date End Date Momo Forbes PCP - General Family Practice 01/02/14 [facility] [address] [place] [address] documented as of this encounter
--- OUTSIDE RECORDS SUMMARY | 2022-06-28 13:15 | XMS_ITS | Encounter Summary ---
:1950 Author Organization [place] Address [facility] [place] [address] Care Team Providers Name Role Phone Momo [...] on filedocumented in this encounter Care Teams Watch Commander Relationship Specialty Start Date End Date Momo Forbes PCP - General Family Practice 01/02/14 [facility] [address] [place] [address] documented as of this encounter
--- OUTSIDE RECORDS SUMMARY | 2022-06-28 13:15 | XMS_ITS | Encounter Summary ---
:1950 Author Organization [place] Address [facility] [place] [address] Care Team Providers Name Role Phone Momo [...] filedocumented in this encounter Care Teams Nurse Paralegal Relationship Specialty Start Date End Date Momo Forbes PCP - General Family Practice 01/02/14 [facility] [address] [place] [address] documented as of this encounter
--- OUTSIDE RECORDS SUMMARY | 2022-06-28 13:15 | XMS_ITS | Encounter Summary ---
:1950 Author Organization [place] Address [address] [place] [address] Care Team Providers Name Role Phone Momo Forbes Primary Care Provider Reason for Visit Reason Onset Date Comments Transplant Lab 05/16/2019 Encounter Details Date Type Department Care Team Description 05/16/2019 Telephone [facility] Sudhir Fields Trans plant Lab Transplant Clinic Amanda Fletcher RN [address] [place] [address] [phone] Social History Tobacco Use Types Packs/Day [...] CDT Provider Call: Transplant Lab/Orders Route to DESKTOP ANALYST Post Transplant Days: 1928 When patient is less than 60 days post-transplant, route high priority Reason for Call: updated lab order faxed Liver patients reporting abnormal lab results: Route to RN and Page Document lab facility information when provider is calling about annual lab orders. Delete facility wildcards when not needed. Facility Name: [facility] Facility Location: [place], [place] Outside Facility Callback needed? If needed documented in this encounter Plan of Treatment Not on filedocumented as of this encounter Visit Diagnoses Diagnosis Kidney replaced by transplant - Primary Aftercare following organ transplant Encounter for long-term current use of m edication documented in this encounter Care Teams Automatic Washer Mechanic Relationship Specialty Start Date End Date Momo Forbes PCP - General Family Practice 01/02/14 [facility] [address] [place] [address] documented as of this encounter
--- OUTSIDE RECORDS SUMMARY | 2022-06-28 13:15 | XMS_ITS | Encounter Summary ---
:1950 Author Organization [place] Address [facility] [place] [address] Care Team Providers Name Role Phone Momo Forbes Primary Care Provider Reason for Visit Reason Onset Date Comments Refill Request 01/17/2019 Encounter Details Date Type Department Care Team Description 01/17/2019 Refill [facility] Joseph Quintana MD Refill Request Transplant Clinic [address] [place] [address] [address] [place], [place] [phone] [place], [place] [phone] (Wo rk) Social History Tobacco Use Types [...] documented in this encounter Care Teams Business Database Analyst Relationship Specialty Start Date End Date Momo Forbes PCP - General Family Practice 01/02/14 [facility] [address] [place] [address] documented as of this encounter
--- OUTSIDE RECORDS SUMMARY | 2022-06-28 13:15 | XMS_ITS | Encounter Summary ---
:1950 Author Organization [place] Address [facility] [place] [address] Care Team Providers Name Role Phone Momo Forbes Primary Care Provider Encounter Details Date Type Department Care Team Description 10/09/2019 Orders Only [facility] Transplant Mati Recinos RN Clinic [address] [place], [place] [phone] Social History Tobacco Use Types Packs/Day [...] 3:48 PM CST Orders updated. Faxed to [facility] lab: [facility] T [phone] F [phone] F ENGINEER documented in this encounter Plan of Treatment Not on filedocumented as of this encounter Visit Diagnoses Not on filedocumented in this encounter Care Teams Salon Supervisor Relationship Specialty Start Date End Date Momo Forbes PCP - General Family Practice 01/02/14 [facility] [address] [place] [address] documented as of this encounter
--- OUTSIDE RECORDS SUMMARY | 2022-06-28 13:15 | XMS_ITS | Encounter Summary ---
:1950 Author Organization [place] Address [address] [place] [address] Care Team Providers Name Role Phone Forbes, Ton Primary Care Provider Reason for Visit Reason Comments Clinic Care Coordination - Follow-up Encounter Details Date Type Department Care Team Description 10/25/2019 Care Coordination [facility] Sejal Rodriguez Nephrology Clinic BOGDAN Llanos Coordination - [place] [phone] Follow-up 9 [facility] ([place]) [place] [phone] Social History Tobacco Use Types [...] (follow up BP). Romi Rodriguez RN T EDUCATION MANAGER Romi Rodriguez RN - 10/25/2019 10:15 AM [...] further questions or concerns. Romi Rodriguez, RN T EDUCATION MANAGER documented in this encounter Plan of Treatment Not on filedocumented as of this encounter Visit Diagnoses Not on filedocumented in this encounter Care Teams Railroad Signal Operator Relationship Specialty Start Date End Date Momo Forbes PCP - General Family Practice 01/02/14 [facility] [address] [place] [address] documented as of this encounter
--- OUTSIDE RECORDS SUMMARY | 2022-06-28 13:16 | XMS_ITS | Encounter Summary ---
:1950 Author Organization [place] Address [facility] [place] [address] Care Team Providers Name Role Phone Momo Forbes Primary Care Provider Reason for Visit Reason Onset Date Comments Erroneous encounter-disregard 05/17/2018 Encounter Details Date Type Department Care Team Description 05/17/2018 Telephone [facility] [place], Erroneous Transplant Clinic BOGDAN Lopes encounter-disregard [address] [place] [phone] Social History Tobacco Use Types Packs/Day [...] on filedocumented in this encounter Care Teams Pc Analyst Relationship Specialty Start Date End Date Momo Forbes PCP - General Family Practice 01/02/14 [facility] [address] [place] [address] documented as of this encounter
--- OUTSIDE RECORDS SUMMARY | 2022-06-28 13:16 | XMS_ITS | Encounter Summary ---
:1950 Author Organization [place] Address [facility] [place] [address] Care Team Providers Name Role Phone Momo Forbes Primary Care Provider Encounter Details Date Type Department Care Team Description 05/17/2018 Orders Only [facility] Alana Calderon Afterc are following Transplant manager product design organ transplant [address] [place] [address] (Primary Dx) [place] [phone] Social History Tobacco Use [...] rimary documented in this encounter Care Teams Floorworker Relationship Specialty Start Date End Date Momo Forbes PCP - General Family Practice 01/02/14 [facility] [address] [place] [address] documented as of this encounter
--- OUTSIDE RECORDS SUMMARY | 2022-06-28 13:16 | XMS_ITS | Encounter Summary ---
:1950 Author Organization [place] Address [address] [place] [address] Care Team Providers Name Role Phone Momo Forbes Primary Care Provider Reason for Visit Reason Onset Date Comments Appointment 10/05/2017 Encounter Details Date Type Department Care Team Description 10/05/2017 Telephone [facility] Shiva Presley MD Appointment Nephrology [facility] [place] [address] [phone] Social History Tobacco Use Types Packs/Day Years [...] or concernsahead of appointment. Romi Rodriguez RN ON FARMER documented in this encounter Plan of Treatment Not on filedocumented as of this encounter Visit Diagnoses Not on filedocumented in this encounter Care Teams Pilot Plant Research Technician Relationship Specialty Start Date End Date Momo Forbes PCP - General Family Practice 01/02/14 [facility] [address] [place] [address] documented as of this encounter
--- OUTSIDE RECORDS SUMMARY | 2022-06-28 13:16 | XMS_ITS | Encounter Summary ---
:1950 Author Organization [place] Address [facility] [place] [address] Care Team Providers Name Role Phone Momo Forbes Primary Care Provider Reason for Visit Reason Onset Date Comments Refill Request 06/28/2017 mycophenolate Encounter Details Date Type Department Care Team Description 06/28/2017 Refill [facility] Joseph Quintana Refill R equest Transplant Clinic MD Herminio (mycophenolate) [address] [place] [address] [phone] [place] [address] (Wo rk) Social History Tobacco [...] Fill Date: 05/31/17 Quantity: 180 Janelle Lionel [facility] [phone] GER TRANSPORT documented in this encounter Plan of Treatment Not on filedocumented as of this encounter Visit Diagnoses Diagnosis Kidney transplanted - Primary Kidney replaced by transplant documented in this encounter Care Teams Channeler Outsole Relationship Specialty Start Date End Date Momo Forbes PCP - General Family Practice 01/02/14 [facility] [address] [place] [address] documented as of this encounter
--- OUTSIDE RECORDS SUMMARY | 2022-06-28 13:16 | XMS_ITS | Encounter Summary ---
:1950 Author Organization [place] Address [address] [place] [address] Care Team Providers Name Role Phone ForbesMomo Primary Care Provider Reason for Visit Reason Onset Date Comments Transplant 06/01/2017 Diego returning call Left on 06/05/17 Encounter Details Date Type Department Care Team Description 06/01/2017 Telephone [facility] Shiva Kahn, cable tv installer ([place] Transplant [facility] returning call Left [address] on 06/05/17) [place], [place] [phone] [place], [place] [phone] Social History Tobacco Use Types Packs/Day [...] VM to call him on Tuesday06/06/17. ADDENDUM: CUSTOMER CARE MANAGER TASK: Call with questions and instruction [...] filedocumented in this encounter Care Teams Accounts Officer Relationship Specialty Start Date End Date Momo Forbes PCP - General Family Practice 01/02/[address] [address] documented as of this encounter
--- OUTSIDE RECORDS SUMMARY | 2022-06-28 13:16 | XMS_ITS | Encounter Summary ---
:1950 Author Organization [place] Address [address] [place] [address] Care Team Providers Name Role Phone Momo Forbes Primary Care Provider Encounter Details Date Type Department Care Team Description 07/15/2017 Orders Only [facility] Loy Morales Kid olivia replaced by [facility] MD transplant Laboratory [address] [facility] 500 [facility] 609 [place] [phone] (Wo rk) Social History Tobacco Use Types [...] by Results for this MASS SPECTROMETRY AM FROG FARMER transplant procedure are in the results section. documented in this encounter Results (ABNORMAL) Tacrolimus level (07/15/2017 10:48 AM [facility]) [facility] Method Time Signature Tacrolimus Last 0000 07/19/2017 [facility] Dose 07/15/17 10:48 AM [facility] Tacrolimus 4.4 (L) 5.0 - 07/19/2017 [facility] Level 15.0 ug/L 2:38 PM [facility] Comment: Tacrolimus Reference Range [...] Blood specimen 07/15/2017 10:48 7 (specimen) AM FROG FARMER 10:47 AM FROG FARMER Orlando Richey MD LAB - BLOOD ORDERABLES Performing Organization Address City/State/ZIP Code Phon e Number [facility] [address] [address] [facility] 500 [place] [address] [facility] documented in this encounter Visit Diagnoses Diagnosis Kidney replaced by transplant documented in this encounter Care Teams Director Of Regulatory Affairs Relationship Specialty Start Date End Date Momo Forbes PCP - General Family Practice 01/02/14 [facility] 1999 [place] [address] documented as of this encounter
--- OUTSIDE RECORDS SUMMARY | 2022-06-28 13:16 | XMS_ITS | Encounter Summary ---
:1950 Author Organization [place] Address [address] [place] [address]. [place] [address] Care Team Providers Name Role Phone Momo Forbes Primary Care Provider Encounter Details Date Type Department Care Team Description 03/23/2017 Orders Only [facility] Rossi, Estefania [place] replaced by Nephrology Clinic transplant (Primary [address] Dx) [address] [place] [phone] Social History Tobacco Use Types Packs/Day Years [...] Primary documented in this encounter Care Teams Intellectual Property Legal Assistant Relationship Specialty Start Date End Date Momo Forbes PCP - General Family Practice 01/02/14 [facility] [address] [place] [address] documented as of this encounter
--- OUTSIDE RECORDS SUMMARY | 2022-06-28 13:16 | XMS_ITS | Encounter Summary ---
:1950 Author Organization [place] Address [address] [place] [address] Care Team Providers Name Role Phone Momo Forbes Primary Care Provider Reason for Visit Reason Onset Date Comments Refill Request 12/19/2017 Encounter Details Date Type Department Care Team Description 12/19/2017 Refill [facility] Joseph Quintana MD Refill Request Transplant Clinic [address] [place] [address] [address] [phone] [place] [address] (Wo rk) Social History Tobacco [...] Fill Date: 11/14/17 Quantity: 60 Janelle Flowers [facility] [phone] documented in this encounter Plan of Treatment Not on filedocumented as of this encounter Visit Diagnoses Diagnosis Kidney transplanted Kidney replaced by transplant documented in this encounter Care Teams Coater Helper Relationship Specialty Start Date End Date Momo Forbes PCP - General Family Practice 01/02/14 [facility] [address] [place] [address] documented as of this encounter
--- OUTSIDE RECORDS SUMMARY | 2022-06-28 13:16 | XMS_ITS | Encounter Summary ---
:1950 Author Organization [place] Address [address] [place] [address] Care Team Providers Name Role Phone ForbesMomo Primary Care Provider Reason for Visit Reason Onset Date Comments Appointment 08/24/2018 Encounter Details Date Type Department Care Team Description 08/24/2018 Telephone [facility] Nephrology Romi Garcia RN Appointment [facility] [phone] ([facility]) [address] [place] [address] [phone] Social History Tobacco Use Types Packs/Day [...] patient to call back. Romi Rodriguez RN IT RISK OFFICER Telephone Encounter - Romi Rodriguez RN - 08/24/2018 1:54 PM CST Left voicemail for patient to call back (follow up from last transplant appointment). Romi Rodriguez RN IT RISK OFFICER documented in this encounter Plan of Treatment Not on filedocumented as of this encounter Visit Diagnoses Not on filedocumented in this encounter Care Teams Pharmacist Relationship Specialty Start Date End Date Momo Forbes PCP - General Family Practice 01/02/14 [facility] [address] [place] [address] documented as of this encounter
--- OUTSIDE RECORDS SUMMARY | 2022-06-28 13:16 | XMS_ITS | Encounter Summary ---
:1950 Author Organization [place] Address [facility] [address] Care Team Providers Name Role Phone Momo Forbes Primary Care Provider Encounter Details Date Type Department Care Team Description 08/18/2018 Documentation Only [facility] Josseline Recinos, Transplant Clinic RN [address] [place] [address] Social History Tobacco Use Types [...] updated: 08/17/18 Lab orders faxed to: [facility] [phone] (Phone) Lab orders up to date in [facility]. ETING SERVICES MANAGER documented in this encounter Plan of Treatment Not on filedocumented as of this encounter Visit Diagnoses Not on filedocumented in this encounter Care Teams Procedures Rn Relationship Specialty Start Date End Date Momo Forbes PCP - General Family Practice 01/02/14 [facility] [address] [place], [place] [phone] documented as of this encounter
--- OUTSIDE RECORDS SUMMARY | 2022-06-28 13:16 | XMS_ITS | Encounter Summary ---
:1950 Author Organization [place] Address [address] [place] [address] Care Team Providers Name Role Phone Momo Forbes Primary Care Provider Reason for Referral Consultation - Closed Specialty Diagnoses / Procedures Referred By Contact Refer red To Contact Diagnoses Obesity Kidney transplanted [facility] [address] [place] [address] Referral ID Status Reason Start Date Expiration Date Visits Requ ested Visits Authorized [id number] Closed 10/17/2018 10/17/2019 1 1 ING MACHINE OPERATOR Reason for Visit Reason Comments Transplant Encounter Details Date Type Department Care Team Description 10/17/2018 Orders Only [facility] Kavon Nazia Obesity (P rimary Dx); Transplant Clinic BOGDAN Hicks Kidney transplanted [address] [place] [address] Social History Tobacco Use Types [...] transplant documented in this encounter Care Teams Boarder Steam Relationship Specialty Start Date End Date Forbes, Ton PCP - General Family Practice 01/02/14 [facility] [address] [place] [address] documented as of this encounter
--- OUTSIDE RECORDS SUMMARY | 2022-06-28 13:16 | XMS_ITS | Encounter Summary ---
:1950 Author Organization [place] Address [address] [place] [address] Care Team Providers Name Role Phone Momo Forbes Primary Care Provider Reason for Visit Reason Comments RECHECK annual Follow up Kidney TX Encounter Details Date Type Department Care Team Description 10/17/[address] [facility] Shiva Presley MD [facility] [place] [address] [facility] [address] [place], [place] [address] Type 2 diabetes mellitus with other spec ified complication, with long-term current use of insulin (H) (Primary Dx); Nephrology Clinic [facility] Kidney/Pancreas Recipient Kidney replaced by transplant; [facility] following organ tr ansplant; 909 [facility] Immunosupp ression (H); SE HTN, kidney transplant relat ed; [place], [place] Severe obesi ty in adult, BMI [...] Comments Blood Pressure 162/77 10/17/2018 1:54 PM DISTRIBUTOR SALES MANAGER Pulse 60 10/17/2018 1:54 PM DISTRIBUTOR SALES MANAGER Temperature 36.5 ??C (97.7 ??F) 10/17/2018 1:54 PM DISTRIBUTOR SALES MANAGER Respiratory Rate - - Oxygen Saturation 94% 10/17/2018 1:54 PM DISTRIBUTOR SALES MANAGER Inhaled Oxygen Concentration - - Weight 133.7 kg (294 lb 12.8 oz) 10/17/2018 1:54 PM DISTRIBUTOR SALES MANAGER Height - - Body Mass Index 39.98 10/10/2017 2:25 PM DISTRIBUTOR SALES MANAGER documented in this encounter Progress Notes Joseph [...] then 50%0. Also offered to refer to date pitter. # [place] Bone Disorder: - Secondary renal [...] documented by the fellow. Chief Complaint Mr. uGthrie is a 68 year old here for [...] PREVIOUSLY REPORTED 1999 MPACID 1.39 MPAG 80.2 RIBUTOR SALES MANAGER documented in this encounter Nursing Notes Martina [...] kg (294 lb 12.8 oz). Martina Boyle RIBUTOR SALES MANAGER documented in this encounter Plan of [...] >40 documented in this encounter Care Teams Category Manager Relationship Specialty Start Date End Date Momo Forbes PCP - General Family Practice 01/02/14 [facility] [address] [place] [address] documented as of this encounter
--- OUTSIDE RECORDS SUMMARY | 2022-06-28 13:16 | XMS_ITS | Encounter Summary ---
:1950 Author Organization [place] Address [address] [place] [address] Care Team Providers Name Role Phone Forbes, Momo He Primary Care Provider Encounter Details Date Type Department Care Team Description 05/30/2017 Hospital Encounter [facility] Orlando Richey, [facility] [address] [address] [phone] (Wo rk) Social History Tobacco Use Types [...] filedocumented in this encounter Care Teams Health Information Technician Relationship Specialty Start Date End Date Momo Forbes PCP - General Family Practice 01/02/14 [facility] [address] [place] [address] documented as of this encounter
--- OUTSIDE RECORDS SUMMARY | 2022-06-28 13:16 | XMS_ITS | Encounter Summary ---
:1950 Author Organization [place] Address [address] [place] [address] Care Team Providers Name Role Phone Momo Forbes Primary Care Provider Reason for Visit Reason Onset Date Comments Transplant Lab 09/06/2018 Encounter Details Date Type Department Care Team Description 09/06/2018 Telephone [facility] Transplant Adon[place], Transplant Lab Clinic BOGDAN Lopes [address] [address] [phone] Social History Tobacco Use Types Packs/Day Years Used Date Smoking Tobacco: Former Cigars Quit : 08/22/2006 Smokeless Tobacco: Never Alcohol Use Standard Drinks/Week Comments Yes 0 (1 standard drink = 0.6 oz pure alcoho l) occasional drink. Sex Assigned at Date Recorded Not on file documented as of this encounter Miscellaneous Notes Telephone Encounter - Marianne Urias RN - 09/12/2018 11:58 AM CARBURETOR SPECIALIST Attempted to reach pt again regarding his labs, no answer. Left message for pt to return call. URETOR SPECIALIST Telephone Encounter - Marianne Urias RN - 09/07/2018 1:30 PM CARBURETOR SPECIALIST Attempted to reach pt again regarding labs, no answer. Left message for pt to return call. URETOR SPECIALIST Telephone Encounter - Marianne Urias RN - 09/06/2018 12:59 PM CARBURETOR SPECIALIST ISSUE: Creatinine 1.69, up from pt [...] Left message for pt to return call. URETOR SPECIALIST documented in this encounter Plan of Treatment Not on filedocumented as of this encounter Visit Diagnoses Not on filedocumented in this encounter Care Teams Airline Reservationist Relationship Specialty Start Date End Date Momo Forbes PCP - General Family Practice 01/02/14 [facility] [address] [place] [address] documented as of this encounter
--- OUTSIDE RECORDS SUMMARY | 2022-06-28 13:16 | XMS_ITS | Encounter Summary ---
:1950 Author Organization [place] Address [facility] [place] [address] Care Team Providers Name Role Phone Momo Forbes Primary Care Provider Reason for Visit Reason Onset Date Comments Refill Request 10/11/2017 Encounter Details Date Type Department Care Team Description 10/11/2017 Refill [facility] Transplant Debbie Calderon LPN Refill Request Clinic [address] [place] [address] [phone] Social History Tobacco Use Types Packs/Day [...] transplant documented in this encounter Care Teams Design Project Manager Relationship Specialty Start Date End Date Momo Forbes PCP - General Family Practice 01/02/14 [facility] [address] [place] [address] documented as of this encounter
--- OUTSIDE RECORDS SUMMARY | 2022-06-28 13:16 | XMS_ITS | Encounter Summary ---
:1950 Author Organization [place] Address [facility] [place] [address] Care Team Providers Name Role Phone Momo Forbes Primary Care Provider Reason for Visit Reason Onset Date Comments Refill Request 12/22/2018 prograf, mycophenola te (PT IS OUT OF MEDS) Encounter Details Date Type Department Care Team Description 12/22/2018 Refill M [facility] Joseph Quintana Refsid R alenest (prograf, Transplant Clinic MD Hemrinio mycophenolate (PT IS OUT [facility] [facility] SE [address] [facility] SE OF MEDS)) [facility] 353 [facility] 1735 [phone] [place], [place] [phone] ( rk) Social History Tobacco Use Types [...] 01/02/14 [facility] [address] [place] [address] documented as of this encounter
--- OUTSIDE RECORDS SUMMARY | 2022-06-28 13:16 | XMS_ITS | Encounter Summary ---
:1950 Author Organization [place] Address [address] [place] [address] Care Team Providers Name Role Phone Momo Forbes Primary Care Provider Encounter Details Date Type Department Care Team Description 05/31/2017 Orders Only [facility] Loy Morales, Kid olivia replaced by [facility] MD transplant Laboratory [address] [facility] 500 [facility] 609 [place] [phone] (Wo rk) Social History Tobacco Use Types [...] (ABNORMAL) Tacrolimus level (05/30/2017 1:01 PM CDT) [facility] Method Time Signature Tacrolimus Last 05/29/17 05/31/2017 [facility] Dose 1930 1:05 PM CDT [facility] Tacrolimus 3.0 (L) 5.0 - 05/31/2017 [facility] Level 15.0 ug/L 7:54 PM CDT [facility] [...] its performa nce characteristics determined by the [facility], ??Special [...] e Number [facility] 500 [place] [address] [facility] documented in this encounter Visit Diagnoses Diagnosis Kidney replaced by transplant documented in this encounter Care Teams Development Professional Relationship Specialty Start Date End Date Momo Forbes PCP - General Family Practice 01/02/14 [facility] [address] [place] [address] documented as of this encounter
--- OUTSIDE RECORDS SUMMARY | 2022-06-28 13:16 | XMS_ITS | Encounter Summary ---
:1950 Author Organization [place] Address [address] [place] [address] Care Team Providers Name Role Phone Forbes, Ton Primary Care Provider Reason for Visit Reason Onset Date Comments Refill Request 10/25/2018 Encounter Details Date Type Department Care Team Description 10/25/2018 Refill [facility] Joseph Quintana MD Refill Request Transplant Clinic [address] [place] [address] 1932 [place], [place] [phone] [place] [address] (Wo rk) Social History Tobacco [...] Marianne Urias RN - 10/26/2018 9:04 AM POLITICAL CONSULTANT ISSUE: Refill request for MMF 03/2019 appt [...] to call if further questions or concerns. 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
--- OUTSIDE RECORDS SUMMARY | 2022-06-28 13:16 | XMS_ITS | Encounter Summary ---
:1950 Author Organization [place] Address [facility] [place] [address] Care Team Providers Name Role Phone Momo Forbes Primary Care Provider Reason for Visit Reason Onset Date Comments Refill Request 10/10/2017 mycophenolae Encounter Details Date Type Department Care Team Description 10/10/2017 Refill M [facility] Joseph Quintana Refill R equest Transplant Clinic MD Herminio (mycophenolae ) [address] [place] [address] [phone] [place] [address] (Wo rk) Social History Tobacco [...] Fill Date: 09/01/17 Quantity: 180 Janelle Flowers [facility] [phone] LOGY NAVIGATOR documented in this encounter Plan of Treatment Not on filedocumented as of this encounter Visit Diagnoses Diagnosis 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
--- OUTSIDE RECORDS SUMMARY | 2022-06-28 13:16 | XMS_ITS | Encounter Summary ---
:1950 Author Organization [place] Address [address] [place] [address] Care Team Providers Name Role Phone Momo Forbes Primary Care Provider Reason for Visit Reason Onset Date Comments Transplant 10/18/2018 post transplant sche duling Encounter Details Date Type Department Care Team Description 10/18/2018 Telephone [facility] Nazia Jacobson Transplant (post Transplant Clinic BOGDAN Hickslearning coach scheduling) [address] [place] [phone] Social History Tobacco Use Types Packs/Day [...] another detailed message with weight managements number. ES 1 THRU 6 HOME TEACHER Telephone Encounter - Maribel Plunkett - 10/18/2018 9:32 AM CST I attempted to contact pt to give him the number for weight management, as they want to talk directly to the patient when scheduling initial appointment, and reached his VM. I LVM asking him to return my call. ES 1 THRU 6 HOME TEACHER documented in this encounter Plan of Treatment Not on filedocumented as of this encounter Visit Diagnoses Not on filedocumented in this encounter Care Teams Tableau Lead Relationship Specialty Start Date End Date Momo Forbes PCP - General Family Practice 01/02/14 [facility] [address] [place] [address] documented as of this encounter
--- OUTSIDE RECORDS SUMMARY | 2022-06-28 13:16 | XMS_ITS | Encounter Summary ---
:1950 Author Organization [place] Address [facility] [place] [address] Care Team Providers Name Role Phone Momo [...] on filedocumented in this encounter Care Teams Tool Keeper Relationship Specialty Start Date End Date Momo Forbes PCP - General Family Practice 01/02/14 [facility] [address] [place] [address] documented as of this encounter
--- OUTSIDE RECORDS SUMMARY | 2022-06-28 13:16 | XMS_ITS | Encounter Summary ---
:1950 Author Organization [place] Address [facility] [place] [address] Care Team Providers Name Role Phone Momo Forbes Primary Care Provider Reason for Visit Reason Onset Date Comments Transplant Pharmacy Medication Review 01/19/2018 Encounter Details Date Type Department Care Team Description 01/19/2018 Telephone [facility] Beny Staton, Transplant Pharmacy [address] [facility] [place] [address] [facility] [phone] PHARMACY [place], [place] [address] Social History Tobacco Use Types Packs/Day Years [...] filedocumented in this encounter Care Teams Cloth Feeder Relationship Specialty Start Date End Date Momo Forbes PCP - General Family Practice 01/02/14 [facility] [address] [place] [address] documented as of this encounter
--- OUTSIDE RECORDS SUMMARY | 2022-06-28 13:16 | XMS_ITS | Encounter Summary ---
:1950 Author Organization [place] Address [facility]0 [facility] [place] [address] Care Team Providers Name Role Phone Momo Forbes Primary Care Provider Reason for Visit Reason Onset Date Comments Refill Request 08/31/2017 mycophenolate Encounter Details Date Type Department Care Team Description 08/31/2017 Refill M [facility] Mariano, Joseph Refill R equest Transplant Clinic MD Herminio (mycophenolate) [address] [place] [address] [phone] [place] [address] (Wo rk) Social History Tobacco [...] documented in this encounter Care Teams Supervisor Forming And Tempering Relationship Specialty Start Date End Date Momo Forbes PCP - General Family Practice 01/02/14 [facility] 1999 [place], [place] [phone] documented as of this encounter
--- OUTSIDE RECORDS SUMMARY | 2022-06-28 13:16 | XMS_ITS | Encounter Summary ---
:1950 Author Organization [place] Address [address] [place] [address] Care Team Providers Name Role Phone Momo Forbes Primary Care Provider Encounter Details Date Type Department Care Team Description 11/03/2017 Orders Only [facility] Loy Morales, Rachid olivia replaced by [facility] MD transplant Laboratory [address] [facility] 500 [facility] [address] [place] [address] [id number] (Wo rk) Social History Tobacco Use Types [...] Results Tacrolimus level (11/03/2017 11:30 AM CDT) [facility] Method Time Signature Tacrolimus Not Provided 11/05/2017 [facility] Last Dose 2:20 PM CDT [facility] Tacrolimus 10.7 5.0 - 11/06/2017 [facility] Level 15.0 ug/L 1:00 PM CDT [facility] Comment: Tacrolimus Reference Range Kidney Transplant Pediatric [...] its performa nce characteristics determined by the [facility] [...] Phon e Number [facility] [address] [place], [place] [id number] [place] [address] documented in this encounter Visit Diagnoses Diagnosis Kidney replaced by transplant documented in this encounter Care Teams Perfect Binder Setter Relationship Specialty Start Date End Date Momo Forbes PCP - General Family Practice 01/02/14 [facility] [address] [place] [address] documented as of this encounter
--- OUTSIDE RECORDS SUMMARY | 2022-06-28 13:16 | XMS_ITS | Encounter Summary ---
:1950 Author Organization [place] Address [address] [place] [address] Care Team Providers Name Role Phone Momo Forbes Primary Care Provider Reason for Visit Reason Onset Date Comments Transplant 09/12/2017 Encounter Details Date Type Department Care Team Description 09/12/2017 Telephone [facility] Transplant Nazia Jacobson, Transplant Clinic RN [address] [place], [place] [phone] Social History Tobacco Use [...] updated standing lab order and faxed to [facility] lab. UROY CUTTING SUPERVISOR Telephone Encounter - Nazia Jacobson, RN - 09/12/2017 8:36 AM CORDUROY CUTTING SUPERVISOR ISSUE: Hyperglycemia (blood sugar 300-600s w/ last 2 blood draws) Overdue for transplant labs SOMMELIER TASK: Call Diego Guthrie and ask him who is managing his diabetes? Does he have an manager of revenue? He needs to have better blood sugar control, elevated blood sugars can cause damage to his kidney. Remind him that he should be getting transplant labs done monthly. (3 years out from kidney transplant) Send updated lab letter. UROY CUTTING SUPERVISOR documented in this encounter Plan of Treatment Not on filedocumented as of this encounter Visit Diagnoses Not on filedocumented in this encounter Care Teams Mortising Machine Operator Relationship Specialty Start Date End Date Momo Forbes PCP - General Family Practice 01/02/14 [facility] [address] [place] [address] documented as of this encounter
--- OUTSIDE RECORDS SUMMARY | 2022-06-28 13:16 | XMS_ITS | Encounter Summary ---
:1950 Author Organization [place] Address [address] [place] [address] Care Team Providers Name Role Phone Momo Forbes Primary Care Provider Joseph Quintana MD Unavailable Encounter Details Date Type Department Care Team Description 05/15/2018 External Order Results [facility] Nurse, [facility] Transplant Clinic [address] [place] [address] Social History Tobacco Use Types [...] 54 (L) >60 LABDE SCAN (if ml/min/1.7 Citizen Of [place]) 3m2 (External) GFR Estimated 44 (L) >60 [...] on filedocumented in this encounter Care Teams Client Operations Manager Relationship Specialty Start Date End Date Momo Forbes PCP - General Family Practice 01/02/14 [facility] [address] [place] [address] Joseph Quintana, Assigned Nephrology 03/29/21 MD Provider [address] [facility] [place] 353 [facility] [address] [place] [address] documented as of this encounter
--- OUTSIDE RECORDS SUMMARY | 2022-06-28 13:16 | XMS_ITS | Encounter Summary ---
:1950 Author Organization [place] Address [address] [place] [address] Care Team Providers Name Role Phone ForbesMomo Primary Care Provider Reason for Visit Reason Onset Date Comments Transplant 11/07/2017 Encounter Details Date Type Department Care Team Description 11/07/2017 Telephone [facility] Transplant Nazia Jacobson, Transplant Clinic RN [address] [place], [place] [phone] Social History Tobacco Use [...] range, repeat tac level in 1 week. BRIM ROUNDER TASK: Call patient with instructions per plan. Enter lab orders if needed. documented in this encounter Plan of Treatment Not on filedocumented as of this encounter Visit Diagnoses Not on filedocumented in this encounter Care Teams Electronics Engineering Manager Relationship Specialty Start Date End Date Momo Forbes PCP - General Family Practice 01/02/[address] [address] documented as of this encounter
--- OUTSIDE RECORDS SUMMARY | 2022-06-28 13:16 | XMS_ITS | Encounter Summary ---
:1950 Author Organization [place] Address [address] [place] [address] Care Team Providers Name Role Phone Momo Forbes Primary Care Provider Encounter Details Date Type Department Care Team Description 05/15/2018 Orders Only [facility] Loy Morales MD [facility] [address] [facility] 609 500 [place], [place] [address] [place] [address] [phone] Social History Tobacco Use Types Packs/Day Years [...] (ABNORMAL) Tacrolimus level (05/15/2018 2:13 PM CDT) [facility] Method Time Signature Tacrolimus Not Provided 05/18/2018 [facility] Last Dose 7:24 AM CDT [facility] Tacrolimus 3.4 (L) 5.0 - 05/18/2018 [facility] Level 15.0 ug/L 7:24 AM CDT [facility] Comment: Tacrolimus Reference [...] LAB - BLOOD ORDERABLES Performing Organization Address City/State/[facility] Phon e Number [address] Cyclosporine (05/15/2018 2:13 PM CDT) Component Value Ref Test Analysis Performed At [facility] gist Range Method Time Signature Cyclosporine CANCELLED BY 05/17/2018 [facility] Last Dose BOGDAN KOLB 1:00 PM CDT [facility] ETCHEVER ON [facility] 05/17/18 AT CAMPUS 1300 BY [place] Comment: CORRECTED ON 05/17 AT 1300: PRE VIOUSLY REPORTED [id number] Cyclosporine Level CANCELLED BY RN 50 - 400 05/17/2018 1:00 [facility] CORTES ug/L PM CDT [facility] ETCHEVER ON [facility] 05/17/18 AT 1300 BY [place] Comment: CORRECTED ON 05/17 AT 1300: PRE VIOUSLY REPORTED <25 Specimen Anatomical Collection Method Collection Time Receive d Time (Source) Location / / Volume Laterality 05/15/2018 2:13 PM 8 9:59 CDT AM CDT Orlando Richey MD LAB - BLOOD ORDERABLES Performing Organization Address City/[facility] Phon e Number [address] documented in this encounter Visit Diagnoses Not on filedocumented in this encounter Care Teams Epoxy Fabrication Supervisor Relationship Specialty Start Date End Date Momo Forbes PCP - General Family Practice 01/02/14 [facility] [address] [place] [address] documented as of this encounter
--- OUTSIDE RECORDS SUMMARY | 2022-06-28 13:16 | XMS_ITS | Encounter Summary ---
:1950 Author Organization [place] Address [address] [place] [address] Care Team Providers Name Role Phone Momo Forbes Primary Care Provider Joseph Quintana MD Unavailable Encounter Details Date Type Department Care Team Description 09/09/2017 External Order [facility] Nurse, [place]x Kidney replaced by Results Transplant Clinic transplant [address] [place] [phone] Social History Tobacco Use Types Packs/Day [...] 07/15/2017 10:48 AM Result s for this HEAD TENNIS COACH procedure are i n the results section. BASIC METABOLIC Routine 07/15/2017 10:48 AM Kidney replaced by Results for this PANEL HEAD TENNIS COACH transplant procedure are i n the results [...] Results (ABNORMAL) Hemoglobin A1c (07/15/2017 10:48 AM HEAD TENNIS COACH) Patholo gist Method Time Signature Hemoglobin A1C >14.0 (H) <=6.4 % LABDE SCAN (External) Specimen (Source) Anatomical Collection Method Collection Time Re ceived Time Location / / Volume Laterality Blood specimen 07/15/2017 10:48 (specimen) AM HEAD TENNIS COACH Narrative JESSICA PFT - 09/09/2017 9:36 PM HEAD TENNIS COACH Verified by Sharon Martinez on 8. Patient Reported LAB - BLOOD ORDERABLES Performing Organization Address City/State/ZIP Code Phon e Number JESSICA PFT LABDE SCAN (ABNORMAL) Basic metabolic panel (07/15/2017 10:48 AM HEAD TENNIS COACH) Analysis Performed At Patho logist Time [...] 55 (L) >60 LABDE SCAN (if ml/min/1.7 [place]ese) 3m2 (External) GFR Estimated 46 (L) >60 LABDE SCAN (External) ml/min/1.7 3m2 Specimen (Source) Anatomical Collection Method Collection Time Re ceived Time Location / / Volume Laterality Blood specimen 07/15/2017 10:48 (specimen) AM HEAD TENNIS COACH Narrative BREEZE PFT - 09/09/2017 9:36 PM HEAD TENNIS COACH Verified by Sharon Martinez on 8. Orlando [...] Narrative BREEZE PFT - 09/09/2017 9:39 PM HEAD TENNIS COACH Verified by Sharon Martinez on 8. Patient [...] Narrative BREEZE PFT - 09/09/2017 9:39 PM HEAD TENNIS COACH Verified by Sharon Martinez on 8. Orlando [...] 51 (L) >60 LABDE SCAN (if ml/min/1.7 [place]) 3m2 (External) GFR Estimated 42 (L) >60 LABDE SCAN (External) ml/min/1.7 3m2 Specimen (Source) Anatomical Collection Method Collection Time Re ceived Time Location / / Volume Laterality Blood specimen 05/30/2017 9:32 AM (specimen) CDT Narrative BREEZE PFT - 09/09/2017 9:39 PM HEAD TENNIS COACH Verified by Sharon Martinez on 8. Orlando [...] Narrative BREEZE PFT - 09/09/2017 9:44 PM HEAD TENNIS COACH Verified by Sharon Martinez on 8. Patient Reported LAB - BLOOD ORDERABLES Performing Organization Address City/[facility]/ZIP Code Phon e Number BREEZE [...] Narrative BREEZE PFT - 09/09/2017 9:44 PM HEAD TENNIS COACH Verified by Sharon Martinez on 8. Patient Reported LAB - BLOOD ORDERABLES Performing Organization Address City/[facility] Code Phon e Number BREEZE PFT LABDE SCAN (ABNORMAL) Hemoglobin A1c (01/19/2017 9:30 AM CDT) Analysis Performed At [facility] logist Time Signature Hemoglobin A1C 12.4 (H) <=6.4 % LABDE SCAN (External) Specimen (Source) Anatomical Collection Method Collection Time Re ceived Time Location / / Volume Laterality Blood specimen 01/19/2017 9:30 AM (specimen) CDT Narrative BREEZE PFT - 09/09/2017 9:44 PM HEAD TENNIS COACH Verified by Shaorn Martinez on 8. Patient Reported LAB - BLOOD ORDERABLES Performing Organization Address City/[facility]/ZIP Code Phon e Number BREEZE [...] 55 (L) >60 LABDE SCAN (if ml/min/1.7 [place]ese) 3m2 (External) GFR Estimated 46 (L) >60 LABDE SCAN (External) ml/min/1.7 3m2 Specimen (Source) Anatomical Collection Method Collection Time Re ceived Time Location / / Volume Laterality Blood specimen 01/19/2017 9:30 AM (specimen) CDT Narrative JESSICA PFT - 09/09/2017 9:44 PM HEAD TENNIS COACH Verified by Sharon Martinez on 8. Patient Reported LAB - BLOOD ORDERABLES Performing Organization Address City/State/ZIP Code Phon e Number BREEZE PFT LABDE SCAN documented in this encounter Visit Diagnoses Diagnosis Kidney replaced by transplant documented in this encounter Care Teams Fundraiser Relationship Specialty Start Date End Date Momo Forbes PCP - General Family Practice 01/02/14 [facility] [address] [place] [address] Joseph Quintana, Assigned Nephrology 03/29/21 MD Provider [address] [place] [address] 353 [facility] [address] [place] [address] documented as of this encounter
--- OUTSIDE RECORDS SUMMARY | 2022-06-28 13:16 | XMS_ITS | Encounter Summary ---
:1950 Author Organization [place] Address [facility] [place] [address] Care Team Providers Name Role Phone Momo Forbes Primary Care Provider Encounter Details Date Type Department Care Team Description [facility]2017 [facility] [place] [address] [phone] Social History Tobacco Use Types Packs/Day Years [...] disease documented in this encounter Care Teams Machinist Instructor Relationship Specialty Start Date End Date Momo Forbes PCP - General Family Practice 01/02/14 [facility] [address] [place] [address] documented as of this encounter
--- OUTSIDE RECORDS SUMMARY | 2022-06-28 13:16 | XMS_ITS | Encounter Summary ---
:1950 Author Organization [place] Address [facility] [place] [address] Care Team Providers Name Role Phone Momo Forbes Primary Care Provider Reason for Visit Reason Onset Date Comments Transplant 08/31/2017 Encounter Details Date Type Department Care Team Description 08/31/2017 Telephone [facility] Transplant Amanda Garduno Transplant Clinic M, RN [address] [place] [address] [phone] Social History Tobacco Use Types Packs/Day [...] on filedocumented in this encounter Care Teams Farm Equipment Mechanic Apprentice Relationship Specialty Start Date End Date Momo Forbes PCP - General Family Practice 01/02/14 [facility] [address] [place] [address] documented as of this encounter
--- OUTSIDE RECORDS SUMMARY | 2022-06-28 13:16 | XMS_ITS | Encounter Summary ---
:1950 Author Organization [place] Address [address] [place] [address] Care Team Providers Name Role Phone Momo Forbes Primary Care Provider Reason for Visit Reason Comments RECHECK Kidney tx follow up Encounter Details Date Type Department Care Team Description 10/10/2017 Office Visit [facility] Shiva Presley Sta tus post kidney transplant (Primary Dx); Nephrology Clinic Immunosuppression (H); [facility] Type 2 diabetes mellitus wit h stage 3 chronic kidney disease, with long-term current use of insulin (H); [address] [place] [address] Benign essential hypertension; [address] Hyperlipidemia, unspecified hyperlipidemia type; [place], [place] RANJAN 220 Skin cancer screening [phone] [place] [address] (Wo rk) Social History Tobacco [...] Comments Blood Pressure 153/74 10/10/2017 2:25 PM PYTHON PROGRAMMER Pulse 55 10/10/2017 2:25 PM PYTHON PROGRAMMER Temperature 36.7 ??C (98.1 ??F) 10/10/2017 2:25 PM PYTHON PROGRAMMER Respiratory Rate - - Oxygen Saturation 98% 10/10/2017 2:25 PM PYTHON PROGRAMMER Inhaled Oxygen Concentration - - Weight 135.4 kg (298 lb 6.4 oz) 10/10/2017 2:25 PM PYTHON PROGRAMMER Height 182.9 cm (6') 10/10/2017 2:25 PM PYTHON PROGRAMMER Body Mass Index 40.47 10/10/2017 2:25 PM PYTHON PROGRAMMER documented in this encounter Progress Notes Shiva [...] is well as a referral to his resource recovery specialist for monitoring for any skin cancers. 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 ON PROGRAMMER documented in this encounter Nursing Notes Marcelina [...] oz). Medication Reconciliation: amparo ZURITA CMA . ON PROGRAMMER documented in this encounter Plan of [...] skin documented in this encounter Care Teams Sas Programmer Analyst Relationship Specialty Start Date End Date Momo Forbes PCP - General Family Practice 01/02/14 [facility] [address] [place] [address] documented as of this encounter
--- OUTSIDE RECORDS SUMMARY | 2022-06-28 13:16 | XMS_ITS | Encounter Summary ---
:1950 Author Organization [place] Address [facility] [place] [address] Care Team Providers Name Role Phone Momo Forbes Primary Care Provider Reason for Visit Reason Onset Date Comments Transplant 05/26/2017 refill Encounter Details Date Type Department Care Team Description 05/26/2017 Refill [facility] Anita Joshi MD Transplant (refill) Nephrology Clinic [address] [place] [address] (Wo rk) [address] [phone] Social History Tobacco Use Types Packs/Day Years [...] transplant documented in this encounter Care Teams Portrait Artist Relationship Specialty Start Date End Date Momo Forbes PCP - General Family Practice 01/02/14 [facility] [address] [place] [address] documented as of this encounter
--- OUTSIDE RECORDS SUMMARY | 2022-06-28 13:16 | XMS_ITS | Encounter Summary ---
:1950 Author Organization [place] Address [address] [place] [address] Care Team Providers Name Role Phone Momo Forbes Primary Care Provider Joseph Quintana MD Unavailable Encounter Details Date Type Department Care Team Description 09/04/2018 External Order Results [facility] Nurse, [facility] Transplant Clinic 9 [place] [address] Social History Tobacco Use [...] 2:50 PM R esults for this DIFFERENTIAL CNC SET UP OPERATOR procedure are i n the results section. BASIC METABOLIC PANEL Routine 09/04/2018 2:50 PM Results for this CNC SET UP OPERATOR procedure are i n the results section. PROTEIN RANDOM URINE Routine 09/04/2018 2:49 PM R esults for this CNC SET UP OPERATOR procedure are i n the results section. documented in this encounter Results (ABNORMAL) CBC with platelets differential (09/04/2018 2:50 PM CNC SET UP OPERATOR) [facility] Method Time Signature WBC Count 3.8 [...] Laterality Blood specimen 09/04/2018 2:50 PM (specimen) CNC SET UP OPERATOR Narrative JESSICA PFT - 09/06/2018 9:13 AM CNC SET UP OPERATOR Verified by Cassie Florian on 09/06/2018. Patient Reported LAB - BLOOD ORDERABLES Performing Organization Address City/State/ZIP Code Phon e Number ZACHERYTYLER PFT LABDE SCAN (ABNORMAL) Basic metabolic panel (09/04/2018 2:50 PM CNC SET UP OPERATOR) Analysis Performed At Patho logist Time [...] 49 (L) >60 LABDE SCAN (if ml/min/1.7 [place]istanian) 3m2 (External) GFR Estimated 41 (L) >60 LABDE SCAN (External) ml/min/1.7 3m2 Specimen (Source) Anatomical Collection Method Collection Time Re ceived Time Location / / Volume Laterality Blood specimen 09/04/2018 2:50 PM (specimen) CNC SET UP OPERATOR Narrative BREEZE PFT - 09/06/2018 9:13 AM CNC SET UP OPERATOR Verified by Cassie Florian on 09/06/2018. Patient Reported LAB - BLOOD ORDERABLES Performing Organization Address City/State/ZIP Code Phon e Number BREEZE PFT LABDE SCAN (ABNORMAL) Protein random urine with Creat Ratio (09/04/2018 2:49 PM CNC SET UP OPERATOR) P athologist Signature Protein Random 72 (H) 1 - 14 LABDE SCAN Urine mg/dL (External) Creatinine 104.0 63.0 - LABDE SCAN Urine mg/dL 166.0 (External) mg/dL Protein Total 0.7 (H) <0.2 LABDE SCAN Ur per Cr (External) Specimen (Source) Anatomical Collection Method Collection Time Re ceived Time Location / / Volume Laterality Urine specimen 09/04/2018 2:49 PM (specimen) CNC SET UP OPERATOR Narrative BREEZE PFT - 09/06/2018 9:13 AM CNC SET UP OPERATOR Verified by Cassie Florian on 09/06/2018. Patient Reported LAB - URINE ORDERABLES Performing Organization Address City/State/ZIP Code Phon e Number BREEZE PFT LABDE SCAN documented in this encounter Visit Diagnoses Not on filedocumented in this encounter Care Teams Parts Counter Representative Relationship Specialty Start Date End Date Momo Forbes PCP - General Family Practice 01/02/14 [facility] [address] [place] [address] Joseph Quintana, Assigned Nephrology 03/29/21 MD Provider [address] [place] [address] [address] [place] [address] documented as of this encounter
--- OUTSIDE RECORDS SUMMARY | 2022-06-28 13:17 | XMS_ITS | Encounter Summary ---
:1950 Author Organization [place] Address [address] [facility] [place] [address] Care Team Providers Name Role Phone Momo Forbes Primary Care Provider Reason for Visit Reason Onset Date Comments Pre Visit Planning - Unable To Reach 10/14/2016 Encounter Details Date Type Department Care Team Description 10/14/2016 Telephone [facility] Anita Joshi MD Pre Visit Planning - Nephrology Clinic [address] [place] [address] [place] ble To Reach [address] [address] [phone] Social History Tobacco Use Types Packs/Day Years Used Date Smoking Tobacco: Former Cigars Quit : 08/22/2006 Smokeless Tobacco: Never Alcohol Use Standard Drinks/Week Comments Yes 0 (1 standard drink = 0.6 oz pure alcoho l) occasional drink. Sex Assigned at Date Recorded Not on file documented as of this encounter Miscellaneous Notes Telephone Encounter - Monroe Zurita CHIEF STATION ENGINEER - 10/14/2016 10:56 AM CST Ezekiel, this [...] reschedule your appointment, please call us at [phone]. You are welcome to have your labs done up to a week before your appointment at any [place] or [facility] facility. If you have your labs completed before your appointment, please still come 30 minutes early for check-in MONROE ZURITA CMA ISSIONED SECURITY OFFICER documented in this encounter Plan of Treatment Not on filedocumented as of this encounter Visit Diagnoses Not on filedocumented in this encounter Care Teams Drawer Waxer Relationship Specialty Start Date End Date Momo Forbes PCP - General Family Practice 01/02/14 [facility] [address] [place] [address] documented as of this encounter
--- OUTSIDE RECORDS SUMMARY | 2022-06-28 13:17 | XMS_ITS | Encounter Summary ---
:1950 Author Organization [place] Address [facility] [place] [address] Care Team Providers Name Role Phone Momo Forbes Primary Care Provider Reason for Visit Reason Comments RECHECK 6 mo follow up,christiano cruz Encounter Details Date Type Department Care Team Description 04/20[facility]2016 [facility] Renal hypertension, stage 1-4 or unspecified chronic kidney disease (Primary Dx); Nephrology Clinic Reactive depression; [address] Thrombocytopenia (H) 909 [facility] RANJAN [address] [place] [address] Social History Tobacco Use Types Packs/Day [...] Body Mass Index 41.55 09/02/2015 4:32 PM SEASONAL CLERK documented in this encounter Progress Notes Chucho [...] encounter Results Folate RBC (10/25/2016 3:54 PM SEASONAL CLERK) athologist Signature HCT Within 46.0 % [address] Folate RBC 663 ng/mL [facility] Comment: Reference range: >=366 (Note) Performed by [facility], [address] [place] [address] [email or web address], Geoff Reed MD, Lab. Director Specimen Anatomical Collection Method Collection Time Receive d Time (Source) Location / / Volume Laterality Blood specimen 10/25/2016 3:54 PM 017 3:55 (specimen) SEASONAL CLERK PM SEASONAL CLERK Chucho Joshi MD LAB - BLOOD ORDERABLES Performing Organization Address City/State/ZIP Code Phon e Number [address] [address] [facility] documented in this encounter Visit Diagnoses Diagnosis Renal hypertension, stage 1-4 or unspeci fied chronic kidney disease - Primary Reactive depression Dysthymic disorder Thrombocytopenia (H) Thrombocytopenia, unspecified documented in this encounter Care Teams Sand Conditioner Machine Relationship Specialty Start Date End Date Momo Forbes PCP - General Family Practice 01/02/14 [facility] [address] [place] [address] documented as of this encounter
--- OUTSIDE RECORDS SUMMARY | 2022-06-28 13:17 | XMS_ITS | Encounter Summary ---
:1950 Author Organization [place] Address [address] [place] [address] Care Team Providers Name Role Phone Forbes, Ton Primary Care Provider Encounter Details Date Type Department Care Team Description 07/22/[address] [facility], Joseph Conor isael, [facility] [address] [facility] [address] [place] [address] [phone] [place] [address] [place] [address] (Wo rk) Social History Tobacco [...] Res ults for this MASS SPECTROMETRY PM BASEBALL GLOVE SHAPER procedure are in the results section. documented in this encounter Results (ABNORMAL) Tacrolimus level (08/09/2016 12:15 PM BASEBALL GLOVE SHAPER) [facility] Method Time Signature Tacrolimus Last 08/08/16 [facility] Dose 1800 [facility] Tacrolimus 3.8 (L) 5.0 - UNIVERSITY [...] / Volume Laterality 08/09/2016 12:15 08/11/2016 PM BASEBALL GLOVE SHAPER 10:15 AM BASEBALL GLOVE SHAPER Deysi Alicea MD LAB - BLOOD ORDERABLES Performing Organization Address City/State/ZIP Code Phon e Number [facility] [address] documented in this encounter Visit Diagnoses Not on filedocumented in this encounter Care Teams Customer Engagement Representative Relationship Specialty Start Date End Date Momo Forbes PCP - General Family Practice 01/02/14 [facility] [address] [place] [phone] documented as of this encounter
--- OUTSIDE RECORDS SUMMARY | 2022-06-28 13:17 | XMS_ITS | Encounter Summary ---
:1950 Author Organization [place] Address [address] [place] [address] Care Team Providers Name Role Phone Forbes, Momo eH Primary Care Provider Reason for Visit Reason Onset Date Comments Transplant Immunosuppression Management 08/13/2016 Encounter Details Date Type Department Care Team Description 08/13/2016 Telephone [facility] Shiva Kahn Transp [facility] RN Immunosuppression [address] [place] [address] [address] [place] [address] [place] [address] Social History Tobacco Use Types Packs/Day Years [...] Patient will repeat labs in 1-2 weeks. O INTELLIGENCE OPERATOR Telephone Encounter - Shiva Kahn RN - 08/13/2016 7:42 AM CST Tacrolimus level 3.8 reported as 18-hour level. PLAN: Verify timing of labs tac dose and time of blood draw for tac level. Repeat tac level taking care to get a good 12-hour level (11-13 hours acceptable). TASK: Please call patient with questions and instructions per plan. O INTELLIGENCE OPERATOR documented in this encounter Plan of Treatment Not on filedocumented as of this encounter Visit Diagnoses Diagnosis Kidney replaced by transplant - Primary Aftercare following organ transplant Encounter for long-term current use of m edication documented in this encounter Care Teams Motor Mechanic Relationship Specialty Start Date End Date Momo Forbes PCP - General Family Practice 01/02/14 [facility] [address] [place] [address] documented as of this encounter
--- OUTSIDE RECORDS SUMMARY | 2022-06-28 13:17 | XMS_ITS | Encounter Summary ---
:1950 Author Organization [place] Address Critical access hospital0 [facility] [place] [address] Care Team Providers Name Role Phone Momo Forbes Primary Care Provider Reason for Visit Reason Comments RECHECK Kidney follow up Encounter Details Date Type Department Care Team Description 10/25/2016 Office Visit [facility] Anita Joshi MD Renal hypertension, Nephrology Clinic [address] [place] [address] 1-4 or [place] [address] unspecified chronic [address] [place], [place] [address] (Primary Dx) [address] [phone] Social History Tobacco Use Types Packs/Day Years [...] Comments Blood Pressure 168/83 10/25/2016 4:39 PM CIRCUIT BREAKER MECHANIC Pulse 55 10/25/2016 4:39 PM CIRCUIT BREAKER MECHANIC Temperature 36.8 ??C (98.3 ??F) 10/25/2016 4:39 PM CIRCUIT BREAKER MECHANIC Respiratory Rate 18 10/25/2016 4:39 PM CIRCUIT BREAKER MECHANIC Oxygen Saturation - - Inhaled Oxygen Concentration - - Weight 138.2 kg (304 lb 9.6 oz) 10/25/2016 4:39 PM CIRCUIT BREAKER MECHANIC Height 182.9 cm (6') 10/25/2016 4:39 PM CIRCUIT BREAKER MECHANIC Body Mass Index 41.31 10/25/2016 4:39 PM CIRCUIT BREAKER MECHANIC documented in this encounter Progress Notes Chucho [...] (304 lb 9.6 oz). Medication Reconciliation: complete UIT BREAKER MECHANIC documented in this encounter Plan of Treatment Not on filedocumented as of this encounter Visit Diagnoses Diagnosis Renal hypertension, stage 1-4 or unspeci fied chronic kidney disease - Primary documented in this encounter Care Teams Iv Technician Relationship Specialty Start Date End Date Momo Forbes PCP - General Family Practice 01/02/14 [facility] [address] [place] [address] documented as of this encounter
--- OUTSIDE RECORDS SUMMARY | 2022-06-28 13:17 | XMS_ITS | Encounter Summary ---
:1950 Author Organization [place] Address [address] [place] [address] Care Team Providers Name Role Phone Momo Forbes Primary Care Provider Reason for Visit Reason Onset Date Comments Transplant 03/30/2016 refill Encounter Details Date Type Department Care Team Description 03/30/2016 Refill The Transplant Deysi Burns MD Transplant (refill) 2nd Floor, Clinic [id number] [place] [address] [facility] [place] [address] Social History Tobacco Use Types [...] Date: 02/19/16 Quantity: 240 Thanks!! Janelle Jackson [facility] documented in this encounter Plan of Treatment Not on filedocumented as of this encounter Visit Diagnoses Diagnosis Kidney transplanted - Primary Kidney replaced by transplant documented in this encounter Care Teams Information Technology Program Manager Relationship Specialty Start Date End Date Momo Forbes PCP - General Family Practice 01/02/14 [facility] [address] [place] [address] documented as of this encounter
--- OUTSIDE RECORDS SUMMARY | 2022-06-28 13:17 | XMS_ITS | Encounter Summary ---
:1950 Author Organization [place] Address [facility] [place] [address] Care Team Providers Name Role Phone Momo Forbes Primary Care Provider Reason for Visit Reason Onset Date Comments Transplant 12/02/2016 refill Encounter Details Date Type Department Care Team Description 12/02/2016 Refill [facility] Anita Joshi MD Transplant (refill) Nephrology Clinic [address] [place] [address] (Wo rk) [address] [phone] Social History Tobacco Use Types Packs/Day Years [...] transplant documented in this encounter Care Teams Clerk Travel Reservations Relationship Specialty Start Date End Date Momo Forbes PCP - General Family Practice 01/02/14 [facility] [address] [place] [address] documented as of this encounter
--- OUTSIDE RECORDS SUMMARY | 2022-06-28 13:17 | XMS_ITS | Encounter Summary ---
:1950 Author Organization [place] Address [address] [place] [address] Care Team Providers Name Role Phone Momo Forbes Primary Care Provider Joseph Quintana MD Unavailable Encounter Details Date Type Department Care Team Description 05/03/2016 External Order Results [facility] Nurse, [facility] [address] [place] [address] Social History Tobacco Use Types [...] filedocumented in this encounter Care Teams Day Haul Youth Supervisor Relationship Specialty Start Date End Date Momo Forbes PCP - General Family Practice 01/02/14 [facility] [address] [place] [address] Joseph Quintana, Assigned Nephrology 03/29/21 MD Provider [facility] 353 [facility] [address] [place] [address] documented as of this encounter
--- OUTSIDE RECORDS SUMMARY | 2022-06-28 13:17 | XMS_ITS | Encounter Summary ---
:1950 Author Organization [place] Address [address] [place] [address] Care Team Providers Name Role Phone Momo Forbes Primary Care Provider Encounter Details Date Type Department Care Team Description 01/19/2017 Orders Only [facility] Loy Morales, Aft ercare following organ transplant; [facility] Kidney replaced by transplant; Laboratory [address] [facility] Encounter for long-term curr ent use of medication [address] [place] [address] [phone] (Wo rk) Social History Tobacco Use Types [...] Results Tacrolimus level (01/19/2017 9:25 AM CDT) [facility] Method Time Signature Tacrolimus Last 0800 [facility] Dose 01/19/17 [facility] Tacrolimus 6.5 5.0 - [facility] 15.0 ug/L [facility] Comment: Tacrolimus Reference [...] its perform ance characteristics determined by the [facility], ??Special Chemistry Laboratory. It has not been [...] Address City/State/ZIP Code Phon e Number [address] [address], [facility] documented in this encounter Visit Diagnoses Diagnosis Aftercare following organ transplant Kidney replaced by transplant Encounter for long-term current use of m edication documented in this encounter Care Teams Musical String Maker Relationship Specialty Start Date End Date Momo Forbes PCP - General Family Practice 01/02/14 [facility] [address] [place] [address] documented as of this encounter
--- OUTSIDE RECORDS SUMMARY | 2022-06-28 13:17 | XMS_ITS | Encounter Summary ---
:1950 Author Organization [place] Address [facility] [place] [address] Care Team Providers Name Role Phone Momo Forbes Primary Care Provider Reason for Visit Reason Onset Date Comments Refill Request 09/28/2016 Encounter Details Date Type Department Care Team Description 09/28/2016 Refill [facility] Anita Joshi MD Refill Request Nephrology Clinic [address] [place] [address] [place] [address] [phone] Social History Tobacco Use Types Packs/Day Years [...] 1:51 PM CST Last Office Visit with Dental Laboratory Supervisor: March 2016. Medication refilled per Nephrology Clinic protocol. Janes Jauregui RN OGRAVURE PRESS OPERATOR documented in this encounter Plan of Treatment Not on filedocumented as of this encounter Visit Diagnoses Diagnosis Reactive depression - Primary Dysthymic disorder documented in this encounter Care Teams Type Copyist Relationship Specialty Start Date End Date Momo Forbes PCP - General Family Practice 01/02/[address] [place] [address] documented as of this encounter
--- OUTSIDE RECORDS SUMMARY | 2022-06-28 13:17 | XMS_ITS | Encounter Summary ---
:1950 Author Organization [place] Address [facility] [place] [address] Care Team Providers Name Role Phone Momo Forbes Primary Care Provider Reason for Visit Reason Onset Date Comments Transplant Pharmacy Medication Review 01/26/2017 Encounter Details Date Type Department Care Team Description 01/26/2017 Telephone [facility] Janes Rodriguez, Transplant Pharmacy [address] [facility] [place] [phone] Social History Tobacco Use Types Packs/Day Years [...] on filedocumented in this encounter Care Teams Woodwind Instruments Inspector Relationship Specialty Start Date End Date Momo Forbes PCP - General Family Practice 01/02/14 [facility] [address] [place] [address] documented as of this encounter
--- OUTSIDE RECORDS SUMMARY | 2022-06-28 13:17 | XMS_ITS | Encounter Summary ---
:1950 Author Organization [place] Address [address] [place] [address] Care Team Providers Name Role Phone Momo Forbes Primary Care Provider Reason for Visit Reason Onset Date Comments Transplant 05/10/2016 refill Encounter Details Date Type Department Care Team Description 05/10/2016 Refill The Transplant Chucho Perez MD Transplant (refill) 2nd Floor, Clinic [address] [place] [address] [facility] [place] [address] Social History Tobacco Use Types [...] send new rx Thank you Janelle Flowers [facility] [phone] documented in this encounter Plan of Treatment Not on filedocumented as of this encounter Visit Diagnoses Diagnosis Kidney transplanted - Primary Kidney replaced by transplant documented in this encounter Care Teams Crusher Screen Repairer Relationship Specialty Start Date End Date Momo Forbes PCP - General Family Practice 01/02/14 [facility] [address] [place] [phone] documented as of this encounter
--- OUTSIDE RECORDS SUMMARY | 2022-06-28 13:17 | XMS_ITS | Encounter Summary ---
:1950 Author Organization [place] Address [facility] [place] [address] Care Team Providers Name Role Phone Momo Forbes Primary Care Provider Reason for Visit Reason Onset Date Comments Transplant 04/20/2016 refill Encounter Details Date Type Department Care Team Description 04/20/[address] [facility] Joseph Quintana, Transplant (refill) Transplant Clinic [address] [place] [address] [phone] [place], [place] [phone] (Wo rk) Social History Tobacco Use Types [...] documented in this encounter Care Teams Customer Leader Relationship Specialty Start Date End Date Momo Forbes PCP - General Family Practice 01/02/14 [facility] [address] [place] [address] documented as of this encounter
--- OUTSIDE RECORDS SUMMARY | 2022-06-28 13:17 | XMS_ITS | Encounter Summary ---
:1950 Author Organization [place] Address [address] [place] [address] Care Team Providers Name Role Phone Momo Forbes Primary Care Provider Joseph Quintana MD Unavailable Encounter Details Date Type Department Care Team Description 03/18/[address] [facility] Nurse, [facility] Transplant Clinic 9 [place] [address] Social History Tobacco Use Types [...] Lab Result (03/17/2016 10:45 AM CDT) [facility] Method Time Signature Sodium (External) 139 [...] on filedocumented in this encounter Care Teams Tappet Adjuster Relationship Specialty Start Date End Date Momo Forbes PCP - General Family Practice 5/14/14 [facility] [address] [place] [address] Joseph Quintana, Assigned Nephrology 03/29/21 MD Provider [address] [place] [address] [address] [place] [address] documented as of this encounter
--- OUTSIDE RECORDS SUMMARY | 2022-06-28 13:17 | XMS_ITS | Encounter Summary ---
:1950 Author Organization [place] Address [address] [place] [address] Care Team Providers Name Role Phone Momo Forbes Primary Care Provider Encounter Details Date Type Department Care Team Description 10/25/2016 Orders Only [facility] Thrombocytopenia (H); [address] [facility] [address] Aftercare following organ tr ansplant; 1st Floor Kidney replaced by transplan t; [place], [place] Encounter fo r long-term current use [...] Thrombocytopenia (H) Resu lts for this PM OCULAR CARE TECHNOLOGIST procedure are i n the results section. BASIC METABOLIC Routine 10/25/2016 3:54 Aftercare following Re sults for this PANEL PM OCULAR CARE TECHNOLOGIST organ transplant procedure are in Kidney replaced by the [facility] ts transplant section. Encounter for long-term current use of medication CBC WITH PLATELETS Routine 10/25/2016 3:54 Aftercare following Results for this PM OCULAR CARE TECHNOLOGIST organ transplant procedure are in Kidney replaced by the [facility] ts transplant section. Encounter for long-term current use of medication PROTEIN RANDOM Routine 10/25/2016 3:52 Aftercare following Res ults for this URINE PM OCULAR CARE TECHNOLOGIST organ transplant procedure are in Kidney replaced by the [facility] ts transplant section. Encounter for long-term current use of medication CREATININE URINE Routine 10/25/2016 3:52 Thrombocytopenia (H) Results for this CALCULATION ONLY PM OCULAR CARE TECHNOLOGIST procedure a re in (LAB ONLY) the results section. documented in this encounter Results (ABNORMAL) Basic metabolic panel (10/25/2016 3:54 PM OCULAR CARE TECHNOLOGIST) Patholo gist Method Time Signature Sodium 142 133 - 144 [facility] mmol/L [facility] Potassium 4.2 3.4 - 5.3 [facility] mmol/L [facility] Chloride 108 94 - 109 [facility] mmol/L [facility] Carbon Dioxide 28 20 - 32 [facility] mmol/L [facility] Anion Gap 7 3 - 14 [facility] mmol/L [facility] Glucose 120 (H) 70 - 99 [facility] mg/dL [facility] Urea Nitrogen 19 7 - 30 [facility] mg/dL [facility] Creatinine 1.39 (H) 0.66 - [facility] 1.25 mg/dL [facility] GFR Estimate 51 (L) >60 [facility] mL/min/1.7 [place] m2 [facility] Comment: Non GFR Calc GFR Estimate If Black 62 >60 mL/min/1.7m2 [facility] Comment: GFR Calc Calcium 9.4 8.5 - 10.1 mg/dL [facility] Specimen Anatomical Collection Method Collection Time Receive d Time (Source) Location / / Volume Laterality Blood specimen 10/25/2016 3:54 PM 017 3:55 (specimen) OCULAR CARE TECHNOLOGIST PM OCULAR CARE TECHNOLOGIST Chucho Joshi MD LAB - BLOOD ORDERABLES Performing Organization Address City/State/ZIP Code Phon e Number [address] [address] [facility] (ABNORMAL) CBC with platelets (10/25/2016 3:54 PM OCULAR CARE TECHNOLOGIST) Analysis Performed At Patho logist Time Signature WBC 5.1 4.0 - 11.0 [facility] 10e9/L [facility] RBC Count 5.50 4.4 - 5.9 [facility] 10e12/L [facility] Hemoglobin 15.5 13.3 - [facility] 17.7 g/dL [facility] Hematocrit 46.0 40.0 - [facility] 53.0 % [facility] MCV 84 78 - 100 [facility] fl [facility] MCH 28.2 26.5 - [facility] 33.0 pg [facility] MCHC 33.7 31.5 - [facility] 36.5 g/dL [facility] RDW 14.1 10.0 - [facility] 15.0 % [facility] Platelet Count 124 (L) 150 - 450 [facility] 10e9/L [facility] Specimen Anatomical Collection Method Collection Time Receive d Time (Source) Location / / Volume Laterality Blood specimen 10/25/2016 3:54 PM 017 3:55 (specimen) OCULAR CARE TECHNOLOGIST PM OCULAR CARE TECHNOLOGIST Chucho Joshi MD LAB - BLOOD ORDERABLES Performing Organization Address City/[facility]/ZIP Code Phon e Number [address] [address] [facility] Folate RBC (10/25/2016 3:54 PM OCULAR CARE TECHNOLOGIST) athologist Signature HCT Within 46.0 % [facility] Past 24h [facility] Folate RBC 663 ng/mL [facility] Comment: Reference range: >=366 (Note) Performed by [employer], [address] [place] [id number] [email or web address], Geoff Reed MD, Lab. Director Specimen Anatomical Collection Method Collection Time Receive d Time (Source) Location / / Volume Laterality Blood specimen 10/25/2016 3:54 PM 017 3:55 (specimen) OCULAR CARE TECHNOLOGIST PM OCULAR CARE TECHNOLOGIST Chucho Joshi MD LAB - BLOOD ORDERABLES Performing Organization Address City/State/ZIP Code Phon e Number [address] [address] [facility] Creatinine urine calculation only (10/25/2016 3:52 PM OCULAR CARE TECHNOLOGIST) P athologist Signature Creatinine 152 mg/dL [facility] Specimen Anatomical Collection Method Collection Time Receive d Time (Source) Location / / Volume Laterality 10/25/2016 3:52 PM 7 4:12 OCULAR CARE TECHNOLOGIST PM OCULAR CARE TECHNOLOGIST Chucho Joshi MD LAB - URINE ORDERABLES Performing Organization Address City/State/ZIP Code Phon e Number M [facility] [address] [address] [facility] [address] [place] [address], [place] [phone] (ABNORMAL) Protein random urine (10/25/2016 3:52 PM OCULAR CARE TECHNOLOGIST) Analysis Performed At Patho logist Time Signature Protein Random 0.48 g/L [place] Urine [facility] Protein Total 0.31 (H) 0 - 0.2 [place] Urine g/gr g/g Cr [facility] Specimen Anatomical Collection Method Collection Time Receive d Time (Source) Location / / Volume Laterality Urine specimen 10/25/2016 3:52 PM 017 4:12 (specimen) OCULAR CARE TECHNOLOGIST PM OCULAR CARE TECHNOLOGIST Chucho Joshi MD LAB - URINE ORDERABLES Performing Organization Address City/State/ZIP Code Phon e Number [facility] [address] [address] [facility] [address] [place] [address], [place] [phone] documented in this encounter Visit Diagnoses Diagnosis Thrombocytopenia (H) Thrombocytopenia, unspecified Aftercare following organ transplant Kidney replaced by transplant Encounter for long-term current use of m edication documented in this encounter Care Teams Aerial Planting And Cultivation Manager Relationship Specialty Start Date End Date Momo Forbes PCP - General Family Practice 01/02/14 [facility] [address] [place] [address] documented as of this encounter
--- OUTSIDE RECORDS SUMMARY | 2022-06-28 13:17 | XMS_ITS | Encounter Summary ---
:1950 Author Organization [place] Address [address] [place] [address] Care Team Providers Name Role Phone Momo Forbes Primary Care Provider Joseph Quintana MD Unavailable Encounter Details Date Type Department Care Team Description 08/18/2016 External Order Results [facility] Nurse, [facility] Transplant Clinic 9 [place] [address] Social History Tobacco Use Types [...] 08/09/2016 12:21 PM Results for this RESULTS CONCRETE MIXING TRUCK DRIVER procedure are i n the results section. documented in this encounter Results (ABNORMAL) TXP External Lab Result (08/09/2016 12:21 PM CONCRETE MIXING TRUCK DRIVER) Analysis Performed At Patho logist Time [...] / / Volume Laterality 08/09/2016 12:21 PM CONCRETE MIXING TRUCK DRIVER Narrative [facility] - 08/18/2016 1:35 PM CONCRETE MIXING TRUCK DRIVER Verified by Jessica Major on 016. Patient Reported LABORATORY Performing Organization Address City/State/ZIP Code Phon e Number [facility] documented in this encounter Visit Diagnoses Not on filedocumented in this encounter Care Teams Hoop Driving Machine Operator Helper Relationship Specialty Start Date End Date Momo Forbes PCP - General Family Practice 01/02/14 [facility] [address] [place] [address] Joseph Quintana, Assigned Nephrology 03/29/21 MD Provider [address] [place] [address] 1932 [place], [place] [id number] documented as of this encounter
--- OUTSIDE RECORDS SUMMARY | 2022-06-28 13:18 | XMS_ITS | Encounter Summary ---
:1950 Author Organization [place] Address [address] [place] [address] Care Team Providers Name Role Phone Ingrid Santana RN Unavailable Unavailable Momo Forbes Primary Care Provider Encounter Details Date Type Department Care Team Description 12/30/2014 Orders Only The Transplant Shiva Arias, RN -donor kidney 2nd Floor, Clinic 2A [facility] transplant recipient Tommy Guillermoteen [address] [facility] (Primary Dx) Building [address] [place] [address] [place] [address] Social History Tobacco Use Types [...] documented in this encounter Care Teams Supervisor Dumping Relationship Specialty Start Date End Date Momo Forbes PCP - General Family Practice 01/02/14 [facility] [address] [place] [phone] Ingrid Santana, RN Registered Nurse Transplant 02/10/12 documented as of this encounter
--- OUTSIDE RECORDS SUMMARY | 2022-06-28 13:18 | XMS_ITS | Encounter Summary ---
:1950 Author Organization [place] Address [facility] [place] [address] Care Team Providers Name Role Phone Ingrid Santana RN Unavailable Unavailable Momo Forbes Primary Care Provider Encounter Details Date Type Department Care Team Description 08/03/2014 Abstract The Transplant [facility] 2nd Floor, Clinic 2A [address] [phone] Social History Tobacco Use [...] filedocumented in this encounter Care Teams Associate Research Scientist Relationship Specialty Start Date End Date Momo Forbes PCP - General Family Practice 01/02/14 [facility] [address] [place] [address] Ingrid Santana, RN Registered Nurse Transplant 02/10/12 documented as of this encounter
--- OUTSIDE RECORDS SUMMARY | 2022-06-28 13:18 | XMS_ITS | Encounter Summary ---
:1950 Author Organization [place] Address [facility] [place] [address] Care Team Providers Name Role Phone Ingrid Santana RN Unavailable Unavailable Momo Forbes Primary Care Provider Encounter Details Date Type Department Care Team Description 10/18/2014 External Order Results The Transplant Ce nter Nurse, [facility] 2nd Floor, Clinic [address]A [address] [phone] Social History Tobacco Use Types [...] 8:15 AM Results f or this RESULTS FRUIT PICKER MACHINE OPERATOR procedure are i n the results section. documented in this encounter Results (ABNORMAL) TXP External Lab Result (10/17/2014 8:15 AM FRUIT PICKER MACHINE OPERATOR) Analysis Performed At Patho logist [...] 56 (L) >60 LABDE SCAN (if ml/min/1.7 Beninese) 3m2 (External) GFR Estimated 46 (L) >60 [...] / / Volume Laterality 10/17/2014 8:15 AM FRUIT PICKER MACHINE OPERATOR Narrative JESSICA PFT - 10/18/2014 8:50 AM FRUIT PICKER MACHINE OPERATOR Verified by Maribel Plunkett on 10/18/19 15. Patient Reported LABORATORY Performing Organization Address City/State/ZIP Code Phon e Number [facility] LABDE SCAN documented in this encounter Visit Diagnoses Not on filedocumented in this encounter Care Teams Steno Typist Relationship Specialty Start Date End Date Momo Forbes PCP - General Family Practice 01/02/14 [facility] [address] [place] [address] Ingrid Santana, RN Registered Nurse Transplant 02/10/12 documented as of this encounter
--- OUTSIDE RECORDS SUMMARY | 2022-06-28 13:18 | XMS_ITS | Encounter Summary ---
:1950 Author Organization [place] Address [address] [place] [address] Care Team Providers Name Role Phone Ingrid Santana RN Unavailable Unavailable Momo Forbes Primary Care Provider Reason for Visit Reason Onset Date Comments Transplant 08/08/2014 immunosuppression ma neil Encounter Details Date Type Department Care Team Description 08/08/2014 Refill Nephrology Shiva aKhn, permastone applicator 2nd Floor, Clinic 2A [facility] (immunosuppression Sanders Wangensteen [address] [place] [address] management) Building [address] [place] [phone] Social History Tobacco Use Types Packs/Day Years [...] to lower Prograf dose to 1.5mg BID. EY ENGINE FIRER Telephone Encounter - Shiva Kahn RN - 08/08/2014 5:33 PM CST ISSUE: Tacrolimus level 9.0. New target tacrolimus levels 6-8 since patient is now 6 months post kidney transplant. PLAN: Decrease Prograf dose from 2 mg twice daily to 1.5 mg twice daily. TASK: Please call patient with instructions for dose change. 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
--- OUTSIDE RECORDS SUMMARY | 2022-06-28 13:18 | XMS_ITS | Encounter Summary ---
:1950 Author Organization [place] Address [facility] [place] [address] Care Team Providers Name Role Phone Ingrid Santana RN Unavailable Unavailable Momo Forbes Primary Care Provider Encounter Details Date Type Department Care Team Description 12/27/2014 External Order Results The Transplant Ce nter Nurse, [facility] 2nd Floor, Clinic 2A [address] [phone] Social History Tobacco Use Types [...] External Lab Result (12/25/2014 9:48 AM CDT) [facility] Method Time Signature Sodium 138 135 - [...] 51 (L) >60 LABDE SCAN (if ml/min/1. [place] Islander) 73m2 (External) GFR Estimated 42 (L) >60 [...] filedocumented in this encounter Care Teams Manager Room Relationship Specialty Start Date End Date Momo Forbes PCP - General Family Practice 01/02/14 [facility] [address] [place] [address] Ingrid Santana, RN Registered Nurse Transplant 02/10/12 documented as of this encounter
--- OUTSIDE RECORDS SUMMARY | 2022-06-28 13:18 | XMS_ITS | Encounter Summary ---
:1950 Author Organization [place] Address [address] [place] [address] Care Team Providers Name Role Phone Ingrid Santana RN Unavailable Unavailable Momo Forbes Primary Care Provider Reason for Visit Reason Onset Date Comments Refill Request 02/10/2015 mycophenolate, smz/t mp Encounter Details Date Type Department Care Team Description 02/10/2015 Refill The Transplant Deysi Burns, Refill Request 2nd Floor, Clinic 2A MD (mycophenolate, Sanders Wangensteen [facility] smz/tmp) Building [address] [place] [phone] [place] [address] [place] [address] Social History Tobacco Use Types [...] Fill Date: 01/09/15 Last Fill Quantity: 240 [id number] Last Fill Date: 01/09/15 Last Fill Quantity: 31 [facility]ath[facility] [address] [facility] [address] documented in this encounter Plan of Treatment Not on filedocumented as of this encounter Visit Diagnoses Diagnosis S/P kidney transplant - Primary Kidney replaced by transplant documented in this encounter Care Teams Special Effects Designer Relationship Specialty Start Date End Date Momo Forbes PCP - General Family Practice 01/02/[address] [address] Ingrid Santana, RN Registered Nurse Transplant 02/10/12 documented as of this encounter
--- OUTSIDE RECORDS SUMMARY | 2022-06-28 13:18 | XMS_ITS | Encounter Summary ---
:1950 Author Organization [place] Address [facility] [place] [address] Care Team Providers Name Role Phone Momo Forbes Primary Care Provider Reason for Visit Reason Onset Date Comments Transplant 02/19/2016 refill Encounter Details Date Type Department Care Team Description 02/19/2016 Refill The Transplant Deysi Burns MD Transplant (refill) 2nd Floor, Clinic 2A [address] [place] [address] [place] [address] Social History Tobacco Use Types [...] transplant documented in this encounter Care Teams Dinkey Mechanic Relationship Specialty Start Date End Date Momo Forbes PCP - General Family Practice 01/02/14 [facility] [address] [place] [address] documented as of this encounter
--- OUTSIDE RECORDS SUMMARY | 2022-06-28 13:18 | XMS_ITS | Encounter Summary ---
:1950 Author Organization [place] Address [address] [place] [address] Care Team Providers Name Role Phone Ingrid Santana RN Unavailable Unavailable Momo Forbes Primary Care Provider Encounter Details Date Type Department Care Team Description 09/22/2014 Orders Only [facility], [facility] j[facility] [place] [address] [phone] [place] [address] 778 [place] [address] (Wo rk) Social History Tobacco [...] AM R esults for this MASS SPECTROMETRY ROUNDHOUSE WORKER procedure are in the results section. TACROLIMUS BY TANDEM Routine 10/03/2014 8:30 AM R esults for this MASS SPECTROMETRY ROUNDHOUSE WORKER procedure are in the results section. documented in this encounter Results Tacrolimus level (10/17/2014 8:15 AM ROUNDHOUSE WORKER) [facility] Method Time Signature Tacrolimus Last 2029 [...] its perform ance characteristics determined by the [facility], ??Special Chemistry Laboratory. It has not been cleared or approved by the FDA . The laboratory is regulated under CLIA as qualified to perform high-complexity testing. This test is used for clinical purposes. It should not be regarded as investigational or for research. Specimen Anatomical Collection Method Collection Time Receive d Time (Source) Location / / Volume Laterality 10/17/2014 8:15 AM 5 ROUNDHOUSE WORKER 11:17 AM ROUNDHOUSE WORKER Mingo Dangelo MD LAB - BLOOD ORDERABLES Performing Organization Address City/State/ZIP Code Phon e Number [facility] [address] [place], [place] [phone] [place] [address] Tacrolimus level (10/03/2014 8:30 AM ROUNDHOUSE WORKER) [facility] Method Time Signature Tacrolimus Last 10/02/14 [facility] Dose 2030 [facility] Tacrolimus 7.4 5.0 - [facility] 15.0 ug/L [facility] Comment: Tacrolimus [...] its perform ance characteristics determined by the [facility], ??Special Chemistry Laboratory. It has not been cleared or approved by the FDA . The laboratory is regulated under CLIA as qualified to perform high-complexity testing. This test is used for clinical purposes. It should not be regarded as investigational or for research. Specimen Anatomical Collection Method Collection Time Receive d Time (Source) Location / / Volume Laterality 10/03/2014 8:30 AM 5 ROUNDHOUSE WORKER 11:09 AM ROUNDHOUSE WORKER Mingo Dangelo MD LAB - BLOOD ORDERABLES Performing Organization Address City/State/ZIP Code Phon e Number [facility] [address] [place], [place] [phone] [place] [address] documented in this encounter Visit Diagnoses Not on filedocumented in this encounter Care Teams Acid Purifier Relationship Specialty Start Date End Date Momo Forbes PCP - General Family Practice 01/02/14 [facility] [address] [place] [address] Ingrid Santana, RN Registered Nurse Transplant 02/10/12 documented as of this encounter
--- OUTSIDE RECORDS SUMMARY | 2022-06-28 13:18 | XMS_ITS | Encounter Summary ---
:1950 Author Organization [place] Address [address] [place] [address] Care Team Providers Name Role Phone Ingrid Santana RN Unavailable Unavailable Momo Forbes Primary Care Provider Joseph Quintana MD Unavailable Encounter Details Date Type Department Care Team Description 08/14/2015 External Order Results The Transplant Ce nter Nurse, [facility] 2nd Floor, Clinic 2A [address] [phone] Social History Tobacco Use Types [...] 4:41 PM Results f or this RESULTS PRESS WRITER procedure are i n the results section. documented in this encounter Results (ABNORMAL) TXP External Lab Result (08/12/2015 4:41 PM PRESS WRITER) Analysis Performed At Patho logist Time Signature [...] 59 (L) >60 LABDE SCAN (if mL/min/1.7 Omani) 3/m2 (External) GFR Estimated 48 (L) >60 [...] / / Volume Laterality 08/12/2015 4:41 PM PRESS WRITER Narrative JESSICA PFT - 08/14/2015 9:25 AM PRESS WRITER Verified by Freddy Mehta on 08/14. Patient Reported LABORATORY Performing Organization Address City/State/ZIP Code Phon e Number [facility] LABDE SCAN documented in this encounter Visit Diagnoses Not on filedocumented in this encounter Care Teams Inspector Filters Relationship Specialty Start Date End Date Momo Forbes PCP - General Family Practice 01/02/14 [facility] [address] [place] [address] Ingrid Santana, RN Registered Nurse Transplant 02/10/12 Joseph Quintana, Assigned Nephrology 03/29/21 MD Provider [address] [place] [address] [address] [place] [address] documented as of this encounter
--- OUTSIDE RECORDS SUMMARY | 2022-06-28 13:18 | XMS_ITS | Encounter Summary ---
:1950 Author Organization [place] Address [facility] [place] [address] Care Team Providers Name Role Phone Ingrid Santana RN Unavailable Unavailable Momo Forbes Primary Care Provider Reason for Visit Reason Onset Date Comments Transplant 12/31/2014 Encounter Details Date Type Department Care Team Description 12/31/2014 Telephone [facility] Transplant [facility]ita Ordo[facility] [address] [place] [phone] Social History Tobacco Use Types [...] filedocumented in this encounter Care Teams Medical Data Entry Clerk Relationship Specialty Start Date End Date Momo Forbes PCP - General Family Practice 01/02/14 [facility] [address] [place] [address] Ingrid Santana RN Registered Nurse Transplant 02/10/12 documented as of this encounter
--- OUTSIDE RECORDS SUMMARY | 2022-06-28 13:18 | XMS_ITS | Encounter Summary ---
:1950 Author Organization [place] Address [address] [place] [address]. [place] [address] Care Team Providers Name Role Phone Momo Forbes Primary Care Provider Reason for Visit Reason Onset Date Comments Transplant 03/15/2016 refill Encounter Details Date Type Department Care Team Description 03/15/2016 Refill [facility] Cristy Chen LPN T ransplant (refill) Transplant Clinic [address] [place] [address] [phone] Social History Tobacco Use Types Packs/Day [...] documented in this encounter Care Teams Chief Legal Officer Relationship Specialty Start Date End Date Momo Forbes PCP - General Family Practice 01/02/14 [facility] [address] [place] [address] documented as of this encounter
--- OUTSIDE RECORDS SUMMARY | 2022-06-28 13:18 | XMS_ITS | Encounter Summary ---
:1950 Author Organization [place] Address [address] [place] [address] Care Team Providers Name Role Phone Ingrid Santana RN Unavailable Unavailable Momo Forbes Primary Care Provider Encounter Details Date Type Department Care Team Description 10/20/2014 Orders Only [facility], Joseph Conor [facility], [facility] [place] [address] [phone] [place] [address] [address] [place] [address] (Wo rk) Social History Tobacco [...] Results Tacrolimus level (11/05/2014 8:29 AM CDT) [facility] Method Time Signature Tacrolimus Last 2029, [facility] Dose 11/04/14 [facility] Tacrolimus 7.7 5.0 - [facility] Level 15.0 ug/L [facility] Comment: Tacrolimus Reference Range [...] its perform ance characteristics determined by the [facility], ??Special Chemistry Laboratory. It has not [...] e Number [facility] [address] documented in this encounter Visit Diagnoses Not on filedocumented in this encounter Care Teams Sales Associate Key Holder Relationship Specialty Start Date End Date Momo Forbes PCP - General Family Practice 01/02/14 [place] [phone] Ingrid Santana, RN Registered Nurse Transplant 02/10/12 documented as of this encounter
--- OUTSIDE RECORDS SUMMARY | 2022-06-28 13:18 | XMS_ITS | Encounter Summary ---
:1950 Author Organization [place] Address [facility] [place] [address] Care Team Providers Name Role Phone Ingrid Santana RN Unavailable Unavailable Momo Forbes Primary Care Provider Encounter Details Date Type Department Care Team Description 10/04/2014 External Order Results The Transplant Ce nter Nurse, [facility] 2nd Floor, Clinic [address]A [address] [phone] Social History Tobacco Use Types [...] 8:33 AM Results f or this RESULTS MUD ANALYSIS WELL LOGGING OPERATOR procedure are i n the results section. documented in this encounter Results (ABNORMAL) TXP External Lab Result (10/03/2014 8:33 AM MUD ANALYSIS WELL LOGGING OPERATOR) Analysis Performed At Patho logist Time [...] 57 (L) >60 LABDE SCAN (if ml/min/1.7 Beninese) 3m2 (External) GFR Estimated 47 (L) >60 [...] / / Volume Laterality 10/03/2014 8:33 AM MUD ANALYSIS WELL LOGGING OPERATOR Narrative ZACHERYTYLER PFT - 10/04/2014 8:51 AM MUD ANALYSIS WELL LOGGING OPERATOR Verified by Josseline Palma on 5. Patient Reported LABORATORY Performing Organization Address City/State/ZIP Code Phon e Number [facility] LABDE SCAN documented in this encounter Visit Diagnoses Not on filedocumented in this encounter Care Teams Biology Instructor Relationship Specialty Start Date End Date Momo Forbes PCP - General Family Practice 01/02/14 [facility] [address] [place] [address] Ingrid Santana, RN Registered Nurse Transplant 02/10/12 documented as of this encounter
--- OUTSIDE RECORDS SUMMARY | 2022-06-28 13:18 | XMS_ITS | Encounter Summary ---
:1950 Author Organization [place] Address [address] [place] [address] Care Team Providers Name Role Phone Ingrid Santana RN Unavailable Unavailable Momo Forbes Primary Care Provider Encounter Details Date Type Department Care Team Description 07/22/2015 Orders Only [facility] Dereck Dangelo MD [facility] Laborato ry [address] [facility] 195 500 [place], [place] [address] [place] [address] [phone] Social History Tobacco Use Types Packs/Day Years [...] PM R esults for this MASS SPECTROMETRY INTERNAL MEDICINE SPECIALIST procedure are in the results section. documented in this encounter Results Tacrolimus level (08/12/2015 4:35 PM INTERNAL MEDICINE SPECIALIST) [facility] Method Time Signature Tacrolimus Last 0700 [facility] Dose 08/12/15 [facility] Tacrolimus 5.3 5.0 - [facility] Level 15.0 ug/L [facility] Comment: [...] Laterality 08/12/2015 4:35 PM 08/18/ 5 9:11 INTERNAL MEDICINE SPECIALIST AM INTERNAL MEDICINE SPECIALIST Mingo Dangelo MD LAB - BLOOD ORDERABLES Performing Organization Address City/State/ZIP Code Phon e Number [facility] [address] documented in this encounter Visit Diagnoses Not on filedocumented in this encounter Care Teams Consumer Affairs Manager Relationship Specialty Start Date End Date Momo Forbes PCP - General Family Practice 01/02/14 [facility] [address] [place] [address] Ingrid Santana, RN Registered Nurse Transplant 02/10/12 documented as of this encounter
--- OUTSIDE RECORDS SUMMARY | 2022-06-28 13:18 | XMS_ITS | Encounter Summary ---
:1950 Author Organization [place] Address [address] [place] [address]. [place] [address] Care Team Providers Name Role Phone Ingrid Santana RN Unavailable Unavailable Momo Forbes Primary Care Provider Encounter Details Date Type Department Care Team Description 08/29/2015 Orders Only The Transplant Deepa Morgan Aftercare following organ tr ansplant (Primary Dx); 2nd Floor, Clinic 2A Saima Kidney replaced by transplan t; [facility] of medication [address] [phone] Social History Tobacco Use Types Packs/Day Years [...] edication documented in this encounter Care Teams Roustabout Relationship Specialty Start Date End Date Momo Forbes PCP - General Family Practice 01/02/14 [facility] [address] [place] [address] Ingrid Santana RN Registered Nurse Transplant 02/10/12 documented as of this encounter
--- OUTSIDE RECORDS SUMMARY | 2022-06-28 13:18 | XMS_ITS | Encounter Summary ---
:1950 Author Organization [place] Address [facility] [place] [address] Care Team Providers Name Role Phone Momo Forbes Primary Care Provider Reason for Visit Reason Onset Date Comments Transplant Pharmacy Medication Review 02/05/2016 Encounter Details Date Type Department Care Team Description 02/05/2016 Telephone [facility] Nani Humphrey, [facility] Transplant Pharmacy 500 [facility] [place] [address] [facility] [phone] 7[address] [place] [address] (Wo rk) Social History Tobacco Use Types [...] on filedocumented in this encounter Care Teams Dampener Relationship Specialty Start Date End Date Momo Forbes PCP - General Family Practice 01/02/14 [facility] [address] [place] [address] documented as of this encounter
--- OUTSIDE RECORDS SUMMARY | 2022-06-28 13:18 | XMS_ITS | Encounter Summary ---
:1950 Author Organization [place] Address [address] [place] [address] Care Team Providers Name Role Phone Forbes, Ton Primary Care Provider Encounter Details Date Type Department Care Team Description 02/20/2016 Orders Only [facility], Joseph Conor isael, [facility] 500 [facility] [address] [place] [phone] [place] [address] [place] [address] (Wo rk) Social History Tobacco [...] (ABNORMAL) Tacrolimus level (03/17/2016 10:44 AM CDT) [facility] Method Time Signature Tacrolimus Last 2100 [facility] Dose 03/16/16 [facility] Tacrolimus 4.2 (L) 5.0 - [facility] Level 15.0 ug/L [facility] Comment: Tacrolimus Reference Range Kidney Transplant [...] its perform ance characteristics determined by the [facility], ??Special Chemistry Laboratory. It [...] e Number [facility] [address] documented in this encounter Visit Diagnoses Not on filedocumented in this encounter Care Teams Master Of Ceremonies Relationship Specialty Start Date End Date Momo Forbes PCP - General Family Practice 01/02/14 [facility] [address] [place] [id number] documented as of this encounter
--- OUTSIDE RECORDS SUMMARY | 2022-06-28 13:18 | XMS_ITS | Encounter Summary ---
:1950 Author Organization [place] Address [address] [place] [address] Care Team Providers Name Role Phone Ingrid Santana RN Unavailable Unavailable Momo Forbes Primary Care Provider Reason for Visit Reason Onset Date Comments Medication Question 01/17/2015 Encounter Details Date Type Department Care Team Description 01/17/2015 Telephone PHARMACY Beny Staton Geovanni Medication Question 500 [facility] [place] [address] PHARMACY [phone] [place] [address] Social History Tobacco Use Types [...] keep better tabs. His last to in [facility] were good but that was 8 months ago. Beny Staton [facility] Specialty Pharmacist [phone] documented in this encounter Plan of Treatment Not on filedocumented as of this encounter Visit Diagnoses Not on filedocumented in this encounter Care Teams Dog Or Horse Racing Official Relationship Specialty Start Date End Date Momo Forbes PCP - General Family Practice 01/02/14 [facility] [address] [place] [address] Ingrid Santana, RN Registered Nurse Transplant 02/10/12 documented as of this encounter
--- OUTSIDE RECORDS SUMMARY | 2022-06-28 13:18 | XMS_ITS | Encounter Summary ---
:1950 Author Organization [place] Address [facility] [address] Care Team Providers Name Role Phone Momo Forbes Primary Care Provider Reason for Visit Reason Onset Date Comments Transplant 01/16/2016 refill Encounter Details Date Type Department Care Team Description 01/16/2016 Refill The Transplant Deysi Burns MD Transplant (refill) 2nd Floor, Clinic [address]A [address] [place] [address] [facility] [place] [address] Social History Tobacco Use Types [...] transplant documented in this encounter Care Teams Roll Up Machine Operator Relationship Specialty Start Date End Date Momo Forbes PCP - General Family Practice 01/02/14 [facility] [address] [place] [address] documented as of this encounter
--- OUTSIDE RECORDS SUMMARY | 2022-06-28 13:18 | XMS_ITS | Encounter Summary ---
:1950 Author Organization [place] Address [facility] [place] [address] Care Team Providers Name Role Phone Ingrid Santana RN Unavailable Unavailable Momo Forbes Primary Care Provider Reason for Visit Reason Onset Date Comments Refill Request 04/21/2015 crestor Encounter Details Date Type Department Care Team Description 04/21/2015 Refill [facility] [address] Refill Request Physicians Orestes Hernandez MD (crestor) [facility] Building [place] 4th Floor, Clinic 4B [address] [place] [id number] [place] [address] (Wo rk) [address] [phone] Social History Tobacco Use Types Packs/Day Years [...] # refills: 11 [place] [facility] [place] care [place]: 05/14/14 CHOL 126 02/06/2014 HDL 35 02/06/2014 LDL 71 02/06/2014 TRIG 100 02/06/2014 CHOLHDLRATIO 3.6 02/06/2014 Gayathri Orta [facility] [address] [facility] [address] documented in this encounter Plan of Treatment Not on filedocumented as of this encounter Visit Diagnoses Diagnosis DM (diabetes mellitus), type 2 (H) - Ana ashley Type II or unspecified type diabetes aung litus without mention of complication, not stated as uncontrolled Other and unspecified hyperlipidemia documented in this encounter Care Teams Network Security Officer Relationship Specialty Start Date End Date Momo Forbes PCP - General Family Practice 01/02/[address] [address] Ingrid Santana, RN Registered Nurse Transplant 02/10/12 documented as of this encounter
--- OUTSIDE RECORDS SUMMARY | 2022-06-28 13:18 | XMS_ITS | Encounter Summary ---
:1950 Author Organization [place] Address [address] [place] [address] Care Team Providers Name Role Phone Ingrid Santana RN Unavailable Unavailable Momo Forbes Primary Care Provider Joseph Quintana MD Unavailable Encounter Details Date Type Department Care Team Description 11/07/2014 External Order Results The Transplant Ce nter Nurse, [facility] 2nd Floor, Clinic [address]A [address] [address] Social History Tobacco Use [...] Estimated >60 >60 LABDE SCAN (if ml/min/1.7 Sao [place]omean) 3m2 (External) GFR Estimated 51 (L) >60 [...] on filedocumented in this encounter Care Teams Grader Meat Relationship Specialty Start Date End Date Momo Forbes PCP - General Family Practice 01/02/14 [place] [address] Ingrid Santana, RN Registered Nurse Transplant 02/10/12 Joseph Quintana, Assigned Nephrology 03/29/21 MD Provider [address] [place] [address] [phone] documented as of this encounter
--- OUTSIDE RECORDS SUMMARY | 2022-06-28 13:18 | XMS_ITS | Encounter Summary ---
:1950 Author Organization [place] Address [facility] [place] [address] Care Team Providers Name Role Phone Ingrid Santana RN Unavailable Unavailable Momo Forbes Primary Care Provider Reason for Referral Consultation - Closed Specialty Diagnoses / Procedures Referred By Contact Refer red To Contact Diagnoses Morbid obesity due to excess calories (H) Deysi Alicea MD [facility] [address] [place] [address] Referral ID Status Reason Start Date Expiration Date Visits Requ ested Visits Authorized [id number] Closed 09/02/2015 09/01/2016 1 1 OSOFT DYNAMICS MANAGER ARCHITECT Reason for Visit Reason Comments RECHECK Follow up Kidney TX 4 Encounter Details Date Type Department Care Team Description 09/02/2015 Office Visit Nephrology Deysi Alicea, S/P kidney transplant (Prima ry Dx); 2nd Floor, Clinic 2A Morbid obesity due to excess calories (H ) Tommy Wilburn [address] [place] [id number] [place] [address] (Wo rk) [phone] [phone] Social History Tobacco Use Types Packs/Day Years [...] Comments Blood Pressure 128/72 09/02/2015 4:32 PM MICROSOFT DYNAMICS MANAGER ARCHITECT Pulse 61 09/02/2015 4:32 PM MICROSOFT DYNAMICS MANAGER ARCHITECT Temperature 36.7 ??C (98 ??F) 09/02/2015 4:32 PM MICROSOFT DYNAMICS MANAGER ARCHITECT Respiratory Rate - - Oxygen Saturation 94% 09/02/2015 4:32 PM MICROSOFT DYNAMICS MANAGER ARCHITECT Inhaled Oxygen Concentration - - Weight 141.8 kg (312 lb 9.6 oz) 09/02/2015 4:32 PM MICROSOFT DYNAMICS MANAGER ARCHITECT Height 182.9 cm (6' 0.01) 09/02/2015 4:32 PM MICROSOFT DYNAMICS MANAGER ARCHITECT Body Mass Index 42.39 09/02/2015 4:32 PM MICROSOFT DYNAMICS MANAGER ARCHITECT documented in this encounter Progress Notes Deysi [...] discharged on Cumadin; Cumadin was stopped by marquetry worker during the follow up visit, as he [...] Years of Education: 14 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 BP completed using cuff size: large OSOFT DYNAMICS MANAGER ARCHITECT documented in this encounter Plan of [...] ) documented in this encounter Care Teams Spiral Tube Winder Relationship Specialty Start Date End Date Momo Forbes PCP - General Family Practice 01/02/14 [facility] [address] [place] [address] Ingrid Santana, RN Registered Nurse Transplant 02/10/12 documented as of this encounter
--- OUTSIDE RECORDS SUMMARY | 2022-06-28 13:18 | XMS_ITS | Encounter Summary ---
:1950 Author Organization [place] Address [facility] [place] [address] Care Team Providers Name Role Phone Ingrid Santana RN Unavailable Unavailable Momo Forbes Primary Care Provider Reason for Visit Reason Onset Date Comments Refill Request 06/23/2015 amlodipine Encounter Details Date Type Department Care Team Description 06/23/2015 Refill [facility] [address] Refill Request Physicians Orestes Hernandez MD (amlodipine) [facility] Building [place] 4th Floor, Clinic 4B [address] [phone] (Wo rk) [address] [phone] Social History Tobacco Use Types Packs/Day Years [...] 05/13/14 139/73 04/09/14 163/78 Ada You Cpht [facility] [phone] RVISOR CUTTING DEPARTMENT documented in this encounter Plan of Treatment Not on filedocumented as of this encounter Visit Diagnoses Diagnosis HTN (hypertension) - Primary Unspecified essential hypertension documented in this encounter Care Teams Detail Sergeant Relationship Specialty Start Date End Date Momo Forbes PCP - General Family Practice 01/02/[address] [address] Ingrid Santana, RN Registered Nurse Transplant 02/10/12 documented as of this encounter
--- OUTSIDE RECORDS SUMMARY | 2022-06-28 13:18 | XMS_ITS | Encounter Summary ---
:1950 Author Organization [place] Address [address] [place] [address] Care Team Providers Name Role Phone Ingrid Santana RN Unavailable Unavailable Momo Forbes Primary Care Provider Reason for Visit Reason Onset Date Comments Refill Request 09/06/2014 Dok Plus Encounter Details Date Type Department Care Team Description 09/06/2014 Refill The Transplant Deysi Burns, Refill Request ([facility] 2nd Floor, Clinic 2A MD Plus) Tommy Wilburn [id number] [place] [address] [place] [address] Social History Tobacco Use Types [...] Fill Date: 02/08/14 Quantity: 100 Michael Manuel [facility] [phone] IAL DIET COOK documented in this encounter Plan of Treatment Not on filedocumented as of this encounter Visit Diagnoses Diagnosis S/P kidney transplant - Primary Kidney replaced by transplant documented in this encounter Care Teams Grant Specialist Relationship Specialty Start Date End Date Momo Forbes PCP - General Family Practice 01/02/14 [place] [id number] Ingrid Santana, RN Registered Nurse Transplant 02/10/12 documented as of this encounter
--- OUTSIDE RECORDS SUMMARY | 2022-06-28 13:18 | XMS_ITS | Encounter Summary ---
:1950 Author Organization [place] Address [facility] [place] [address] Care Team Providers Name Role Phone Momo Forbes Primary Care Provider Reason for Visit Reason Onset Date Comments Transplant 02/19/2016 refill Encounter Details Date Type Department Care Team Description 02/19/2016 Refill The Transplant Deysi Burns MD Transplant (refill) 2nd Floor, Clinic [address]A [address] [place] [address] [facility] [address] Social History Tobacco Use Types [...] transplant documented in this encounter Care Teams Adult School Counselor Relationship Specialty Start Date End Date Momo Forbes PCP - General Family Practice 01/02/14 [facility] [address] [place] [address] documented as of this encounter
--- OUTSIDE RECORDS SUMMARY | 2022-06-28 13:18 | XMS_ITS | Encounter Summary ---
:1950 Author Organization [place] Address [address] [place] [address]. [place] [address] Care Team Providers Name Role Phone Momo Forbes Primary Care Provider Reason for Visit Reason Onset Date Comments Transplant 02/06/2016 refill Encounter Details Date Type Department Care Team Description 02/06/2016 Refill [facility] Cristy Chen LPN T ransplant (refill) Transplant Clinic [address] [place] [address] [phone] Social History Tobacco Use Types Packs/Day [...] transplant documented in this encounter Care Teams Pocket Secretary Assembler Relationship Specialty Start Date End Date Momo Forbes PCP - General Family Practice 01/02/14 [facility] [address] [place] [address] documented as of this encounter
--- OUTSIDE RECORDS SUMMARY | 2022-06-28 13:18 | XMS_ITS | Encounter Summary ---
:1950 Author Organization [place] Address [address] [place] [address] Care Team Providers Name Role Phone Ingrid Santana RN Unavailable Unavailable Momo Forbes Primary Care Provider Joseph Quintana MD Unavailable Encounter Details Date Type Department Care Team Description 08/06/2014 External Order Results The Transplant Ce nter Nurse, [facility] 2nd Floor, Clinic [address]A [address] [place] [address] Social History Tobacco Use Types [...] 8:39 AM Results f or this RESULTS BANDOLEER PACKER procedure are i n the results section. documented in this encounter Results (ABNORMAL) TXP External Lab Result (08/05/2014 8:39 AM BANDOLEER PACKER) Analysis Performed At Patho logist Time Signature [...] 55 (L) >60 LABDE SCAN (if ml/min/1.7 Panamanian) 3m2 (External) GFR Estimated 45 (L) >60 [...] / / Volume Laterality 08/05/2014 8:39 AM BANDOLEER PACKER Narrative JESSICA PFT - 08/06/2014 7:40 AM BANDOLEER PACKER Verified by Mary Whitehead on 08/06/2014. Patient Reported LABORATORY Performing Organization Address City/State/ZIP Code Phon e Number [facility] LABDE SCAN documented in this encounter Visit Diagnoses Not on filedocumented in this encounter Care Teams Business Partner Relationship Specialty Start Date End Date Momo Forbes PCP - General Family Practice 01/02/[address] [id number] Ingrid Santana, RN Registered Nurse Transplant 02/10/12 Joseph Quintana, Assigned Nephrology 03/29/21 MD Provider [address] [place] [address] documented as of this encounter
--- OUTSIDE RECORDS SUMMARY | 2022-06-28 13:18 | XMS_ITS | Encounter Summary ---
:1950 Author Organization [place] Address [address] [place] [address] Care Team Providers Name Role Phone Ingrid Santana RN Unavailable Unavailable Momo Forbes Primary Care Provider Joseph Quintana MD Unavailable Encounter Details Date Type Department Care Team Description 08/28/2014 External Order Results The Transplant Ce nter Nurse, [facility] 2nd Floor, Clinic 2A [address] [place] [address] Social History Tobacco Use Types [...] 08/26/2014 10:25 AM Results for this RESULTS MANUFACTURING PROJECT ENGINEER procedure are i n the results section. documented in this encounter Results (ABNORMAL) TXP External Lab Result (08/26/2014 10:25 AM MANUFACTURING PROJECT ENGINEER) Analysis Performed At Patho logist Time [...] 58 (L) >60 LABDE SCAN (if ml/min/1.7 Macanese) 3m2 (External) GFR Estimated 48 (L) >60 [...] / / Volume Laterality 08/26/2014 10:25 AM MANUFACTURING PROJECT ENGINEER Narrative [facility] - 08/28/2014 4:34 PM MANUFACTURING PROJECT ENGINEER Verified by Freddy Mehta on 08/28. Patient Reported LABORATORY Performing Organization Address City/State/ZIP Code Phon e Number [facility] LABDE SCAN documented in this encounter Visit Diagnoses Not on filedocumented in this encounter Care Teams Associate Dean Of Women Relationship Specialty Start Date End Date Momo Forbes PCP - General Family Practice 01/02/14 [facility] [address] [place] [address] Ingrid Santana, RN Registered Nurse Transplant 02/10/12 Joseph Quintana, Assigned Nephrology 03/29/21 MD Provider 717 [facility] 353 [facility] [address] [place] [address] documented as of this encounter
--- OUTSIDE RECORDS SUMMARY | 2022-06-28 13:18 | XMS_ITS | Encounter Summary ---
:1950 Author Organization [place] Address [address] [place] [address] Care Team Providers Name Role Phone Ingrid Santana RN Unavailable Unavailable Momo Forbes Primary Care Provider Encounter Details Date Type Department Care Team Description 12/20/2014 Orders Only [facility], [facility] [place] [address] [phone] [place] [address] 424 [place] [address] (Wo rk) Social History Tobacco [...] Results Tacrolimus level (12/25/2014 9:45 AM CDT) [facility] Method Time Signature Tacrolimus Last 12/24/14 [facility] Dose [address] [facility] Tacrolimus 9.5 5.0 - [facility] Level 15.0 ug/L [facility] Comment: Tacrolimus Reference Range [...] its perform ance characteristics determined by the [facility], ??Special Chemistry Laboratory. It has not [...] Phon e Number [facility] [address] documented in this encounter Visit Diagnoses Not on filedocumented in this encounter Care Teams Assistant To The Vice President Relationship Specialty Start Date End Date Momo Forbes PCP - General Family Practice 01/02/14 [place] [id number] Ingrid Santana, RN Registered Nurse Transplant 02/10/12 documented as of this encounter
--- OUTSIDE RECORDS SUMMARY | 2022-06-28 13:18 | XMS_ITS | Encounter Summary ---
:1950 Author Organization [place] Address [facility] [place] [address] Care Team Providers Name Role Phone Ingrid Santana RN Unavailable Unavailable Momo Forbes Primary Care Provider Reason for Visit Reason Onset Date Comments Patient Reminder 08/28/2015 Encounter Details Date Type Department Care Team Description 08/28/2015 Telephone Nephrology Yesenia Clements LPN Patient Reminder 2nd Floor, Clinic 2A [place] [phone] Social History Tobacco Use Types Packs/Day [...] Patient confirmed and understood. Yesenia Clements CMA TION AND MEASUREMENT TECHNICIAN documented in this encounter Plan of Treatment Not on filedocumented as of this encounter Visit Diagnoses Not on filedocumented in this encounter Care Teams Award Machine Operator Relationship Specialty Start Date End Date Momo Forbes PCP - General Family Practice 01/02/14 [facility] [address] [place] [address] Ingrid Santana, RN Registered Nurse Transplant 02/10/12 documented as of this encounter
--- OUTSIDE RECORDS SUMMARY | 2022-06-28 13:18 | XMS_ITS | Encounter Summary ---
:1950 Author Organization [place] Address [address] [place] [address] Care Team Providers Name Role Phone Ingrid Santana RN Unavailable Unavailable Momo Forbes Primary Care Provider Joseph Quintana MD Unavailable Encounter Details Date Type Department Care Team Description 02/03/2015 External Order Results The Transplant Ce nter Nurse, [facility] 2nd Floor, Clinic [address]A [address] [phone] Social History Tobacco Use [...] External Lab Result (01/28/2015 8:56 AM CDT) [facility] Method Time Signature Sodium (External) 140 [...] on filedocumented in this encounter Care Teams Stabilizer Operator Relationship Specialty Start Date End Date Momo Forbes PCP - General Family Practice 01/02/14 [facility] [address] [place] [address] Ingrid Santana, RN Registered Nurse Transplant 02/10/12 Joseph Quintana, Assigned Nephrology 03/29/21 MD Provider [address] [place] [address] [address] [place] [address] documented as of this encounter
--- OUTSIDE RECORDS SUMMARY | 2022-06-28 13:18 | XMS_ITS | Encounter Summary ---
:1950 Author Organization [place] Address [address] [place] [address] Care Team Providers Name Role Phone Ingrid Santana RN Unavailable Unavailable Momo Forbes Primary Care Provider Reason for Visit Reason Onset Date Comments Medication Question 09/12/2014 Encounter Details Date Type Department Care Team Description 09/12/2014 Telephone PHARMACY Beny Staton Geovanni Medication Question 500 [facility] [place] [address] PHARMACY [phone] [place] [address] Social History Tobacco Use Types [...] his dr told himhis bp was good. NESS LINE MANAGER documented in this encounter Plan of Treatment Not on filedocumented as of this encounter Visit Diagnoses Not on filedocumented in this encounter Care Teams Manager Of Radiology Relationship Specialty Start Date End Date Momo Forbes PCP - General Family Practice 01/02/14 [facility] [address] [place] [address] Ingrid Santana, RN Registered Nurse Transplant 02/10/12 documented as of this encounter
--- OUTSIDE RECORDS SUMMARY | 2022-06-28 13:18 | XMS_ITS | Encounter Summary ---
:1950 Author Organization [place] Address [address] [place] [address] Care Team Providers Name Role Phone Ingrid Santana RN Unavailable Unavailable Momo Forbes Primary Care Provider Reason for Visit Reason Onset Date Comments Medication Question 10/11/2014 Encounter Details Date Type Department Care Team Description 10/11/2014 Telephone PHARMACY Beny Staton Geovanni Medication Question 500 [facility] [place] [address] PHARMACY [phone] [place] [address] Social History Tobacco Use [...] is 8 months post-transplant. Medication adherence plan: Stumpediad pillbox Are you having any issues managing [...] activity before he checks it. Beny Staton [facility] Specialty Pharmacist [phone] SMAKER GARMENT FITTER documented in this encounter Plan of Treatment Not on filedocumented as of this encounter Visit Diagnoses Not on filedocumented in this encounter Care Teams Control Room Supervisor Relationship Specialty Start Date End Date Momo Forbes PCP - General Family Practice 01/02/14 [place] [phone] Ingrid Santana, RN Registered Nurse Transplant 02/10/12 documented as of this encounter
--- OUTSIDE RECORDS SUMMARY | 2022-06-28 13:18 | XMS_ITS | Encounter Summary ---
:1950 Author Organization [place] Address [address] [place] [address] Care Team Providers Name Role Phone Ingrid Santana RN Unavailable Unavailable Momo Forbes Primary Care Provider Encounter Details Date Type Department Care Team Description 08/22/2014 Orders Only [facility], [facility] [place] 500 [facility] [address] [place] [phone] [place] [address] 989 [place] [address] (Wo rk) Social History Tobacco [...] ults for this MASS SPECTROMETRY AM MANAGER ACTIVITIES procedure are in the results section. documented in this encounter Results Tacrolimus level (08/26/2014 10:21 AM MANAGER ACTIVITIES) [facility] Method Time Signature Tacrolimus Last 08/25/14 [facility] Dose 2030 [facility] Tacrolimus 6.6 5.0 - [facility] Level [...] its perform ance characteristics determined by the [facility], ??Special Chemistry Laboratory. It has not been cleared or approved by the FDA . The laboratory is regulated under CLIA as qualified to perform high-complexity testing. This test is used for clinical purposes. It should not be regarded as investigational or for research. Specimen Anatomical Collection Method Collection Time Receive d Time (Source) Location / / Volume Laterality 08/26/2014 10:21 08/28/2014 AM MANAGER ACTIVITIES 11:34 AM MANAGER ACTIVITIES Mingo Dangelo MD LAB - BLOOD ORDERABLES Performing Organization Address City/State/ZIP Code Phon e Number [facility] [address] documented in this encounter Visit Diagnoses Not on filedocumented in this encounter Care Teams Railway Head Tender Relationship Specialty Start Date End Date Momo Forbes PCP - General Family Practice 01/02/14 [facility] [address] [place] [address] Ingrid [place]at[place], RN Registered Nurse Transplant 02/10/12 documented as of this encounter
--- OUTSIDE RECORDS SUMMARY | 2022-06-28 13:19 | XMS_ITS | Encounter Summary ---
:1950 Author Organization [place] Address [facility] [place] [address] Care Team Providers Name Role Phone Ingrid Santana RN Unavailable Unavailable Momo Forbes Primary Care Provider Encounter Details Date Type Department Care Team Description 06/17/2014 External Order Results The Transplant Ce nter Nurse, [facility] 2nd Floor, Clinic [address]A [address] [phone] Social History Tobacco Use Types [...] 57 (L) >60 LABDE SCAN (if ml/min/1.7 Albanian) 3m2 (External) GFR Estimated 47 (L) >60 [...] on filedocumented in this encounter Care Teams Shot Core Drill Operator Helper Relationship Specialty Start Date End Date Momo Forbes PCP - General Family Practice 01/02/14 [facility] [address] [place] [id number] Ingrid Santana, RN Registered Nurse Transplant 02/10/12 documented as of this encounter
--- OUTSIDE RECORDS SUMMARY | 2022-06-28 13:19 | XMS_ITS | Encounter Summary ---
:1950 Author Organization [place] Address [address] [place] [address] Care Team Providers Name Role Phone Ingrid Santana RN Unavailable Unavailable Momo Forbes Primary Care Provider Joseph Quintana MD Unavailable Encounter Details Date Type Department Care Team Description 06/08/2014 External Order Results The Transplant Ce nter Nurse, [facility] 2nd Floor, Clinic [address]A [address] [place] [address] Social History Tobacco Use Types [...] External Lab Result (06/05/2014 8:30 AM CDT) [facility] Method Time Signature Sodium (External) 138 [...] filedocumented in this encounter Care Teams Aircraft Pneudraulic Systems Mechanic Relationship Specialty Start Date End Date Momo Forbes PCP - General Family Practice 01/02/14 [facility] [address] [place] [address] Ingrid Santana, RN Registered Nurse Transplant 02/10/12 Joseph Quintana, Assigned Nephrology 03/29/21 MD Provider [address] [place] [address] 1932 [place] [address] documented as of this encounter
--- OUTSIDE RECORDS SUMMARY | 2022-06-28 13:19 | XMS_ITS | Encounter Summary ---
:1950 Author Organization [place] Address [address] [place] [address] Care Team Providers Name Role Phone Ingrid Santana RN Unavailable Unavailable Momo Forbes Primary Care Provider Joseph Quintana MD Unavailable Encounter Details Date Type Department Care Team Description 07/10/2014 External Order Results The Transplant Ce nter Nurse, [facility] 2nd Floor, Clinic [address] [place] [address] Social History Tobacco Use Types [...] 8:17 AM Results f or this RESULTS MACHINE PIE MAKER procedure are i n the results section. documented in this encounter Results (ABNORMAL) TXP External Lab Result (07/08/2014 8:17 AM MACHINE PIE MAKER) Analysis Performed At Patho logist Time [...] Estimated >60 >60 LABDE SCAN (if ml/min/1.7 Saudi Arabian) 3m2 (External) GFR Estimated 51 (L) >60 [...] / / Volume Laterality 07/08/2014 8:17 AM MACHINE PIE MAKER Narrative JESSICA PFT - 07/10/2014 6:20 AM MACHINE PIE MAKER Verified by Janee Alexis on 07/10/2014 . Patient Reported LABORATORY Performing Organization Address City/State/ZIP Code Phon e Number [facility] LABDE SCAN documented in this encounter Visit Diagnoses Not on filedocumented in this encounter Care Teams Business Continuity Planner Relationship Specialty Start Date End Date Momo Forbes PCP - General Family Practice 01/02/[address] [address] Ingrid Santana, RN Registered Nurse Transplant 02/10/12 Joseph Quintana, Assigned Nephrology 03/29/21 MD Provider [address] [place] [id number] documented as of this encounter
--- OUTSIDE RECORDS SUMMARY | 2022-06-28 13:19 | XMS_ITS | Encounter Summary ---
:1950 Author Organization [place] Address [address] [place] [address] Care Team Providers Name Role Phone Ingrid Santana RN Unavailable Unavailable Momo Forbes Primary Care Provider Joseph Quintana MD Unavailable Encounter Details Date Type Department Care Team Description 07/03/2014 External Order Results The Transplant Ce nter Nurse, [facility] 2nd Floor, Clinic [address]A [address] [place] [address] Social History Tobacco Use Types [...] 8:27 AM Results f or this RESULTS BOOKKEEPER RECEPTIONIST procedure are i n the results section. documented in this encounter Results (ABNORMAL) TXP External Lab Result (07/01/2014 8:27 AM BOOKKEEPER RECEPTIONIST) Analysis Performed At Patho logist Time Signature [...] 57 (L) >60 LABDE SCAN (if ml/min/1.7 Micronesian) 3m2 (External) GFR Estimated 47 (L) >60 [...] / / Volume Laterality 07/01/2014 8:27 AM BOOKKEEPER RECEPTIONIST Narrative JESSICA PFT - 07/03/2014 2:18 PM BOOKKEEPER RECEPTIONIST Verified by Xiomara Bello on 07/03/20 14. Patient Reported LABORATORY Performing Organization Address City/State/ZIP Code Phon e Number [facility] LABDE SCAN documented in this encounter Visit Diagnoses Not on filedocumented in this encounter Care Teams Wedding Consultant Relationship Specialty Start Date End Date Momo Forbes PCP - General Family Practice 01/02/14 [place] [phone] Ingrid Santana, RN Registered Nurse Transplant 02/10/12 Joseph Quintana, Assigned Nephrology 03/29/21 MD Provider [address] [place] [address] [id number] documented as of this encounter
--- OUTSIDE RECORDS SUMMARY | 2022-06-28 13:19 | XMS_ITS | Encounter Summary ---
:1950 Author Organization [place] Address [address] [place] [address] Care Team Providers Name Role Phone Ingrid Santana RN Unavailable Unavailable Momo Forbes Primary Care Provider Joseph Quintana MD Unavailable Encounter Details Date Type Department Care Team Description 07/25/2014 External Order Results The Transplant Ce nter Nurse, [facility] 2nd Floor, Clinic [address]A [address] [place] [address] Social History Tobacco Use Types [...] 8:22 AM Results f or this RESULTS ELECTRIC MOTOR ASSEMBLER AND TESTER procedure are i n the results section. documented in this encounter Results (ABNORMAL) TXP External Lab Result (07/22/2014 8:22 AM ELECTRIC MOTOR ASSEMBLER AND TESTER) Analysis Performed At Patho logist Time [...] 52 (L) >60 LABDE SCAN (if ml/min/1.7 Zambian) 3m2 (External) GFR Estimated 43 (L) >60 [...] / / Volume Laterality 07/22/2014 8:22 AM ELECTRIC MOTOR ASSEMBLER AND TESTER Narrative JESSICA PFT - 07/25/2014 6:19 AM ELECTRIC MOTOR ASSEMBLER AND TESTER Verified by Janee Alexis on 07/25/2014 . Patient Reported LABORATORY Performing Organization Address City/State/ZIP Code Phon e Number [facility] LABDE SCAN documented in this encounter Visit Diagnoses Not on filedocumented in this encounter Care Teams Diffusion Furnace Operator Relationship Specialty Start Date End Date Momo Forbes PCP - General Family Practice 01/02/14 [facility] [address] [place] [phone] Ingrid Santana, RN Registered Nurse Transplant 02/10/12 Joseph Quintana, Assigned Nephrology 03/29/21 MD Provider [address] [place] [id number] documented as of this encounter
--- OUTSIDE RECORDS SUMMARY | 2022-06-28 13:19 | XMS_ITS | Encounter Summary ---
:1950 Author Organization [place] Address [address] [place] [address] Care Team Providers Name Role Phone Ingrid Santana RN Unavailable Unavailable Momo Forbes Primary Care Provider Encounter Details Date Type Department Care Team Description 07/22/2014 Orders Only [facility], Joseph Conor [facility], [facility] 500 [facility] [address] [place] [phone] [place] [address] 873 [place] [address] (Wo rk) Social History Tobacco [...] AM Resul ts for this SINGLE ANTIGEN UNDER SHERIFF procedure are in the results section. HLA LUKASZ CLASS I Routine 07/29/2014 8:20 AM Result s for this SINGLE ANTIGEN UNDER SHERIFF procedure are in the results section. TACROLIMUS BY TANDEM Routine 07/29/2014 8:20 AM R esults for this MASS SPECTROMETRY UNDER SHERIFF procedure are in the results section. TACROLIMUS BY TANDEM Routine 07/22/2014 8:20 AM R esults for this MASS SPECTROMETRY UNDER SHERIFF procedure are in the results section. documented in this encounter Results HLA Lukasz Class II Single Antigen (07/29/2014 8:20 AM UNDER SHERIFF) [employer] Method Time Signature SA2 Test SA HI [...] Volume Laterality 07/29/2014 8:20 AM 4 3:26 UNDER SHERIFF PM UNDER SHERIFF Deysi Alicea MD LAB - IMMUNOLOGY ORDERABLES Performing Organization Address [facility] Phon e Number U HLA LABORATORY Immunology/Histocompatabil [place], [place] [address] [facility] 500 [facility], Room 3-580 HISTOTRAC HLA Lukasz Class I Single Antigen (07/29/2014 8:20 AM UNDER SHERIFF) [employer] Method Time Signature SA1 Test SA HI [...] Volume Laterality 07/29/2014 8:20 AM 4 3:26 UNDER SHERIFF PM UNDER SHERIFF Deysi Alicea MD LAB - IMMUNOLOGY ORDERABLES Performing Organization Address [facility] Phon e Number U HLA LABORATORY Immunology/Histocompatabil [place], [place] [address] [facility] 500 [facility] [address] Building, Room 3-580 HISTOTRAC Tacrolimus level (07/29/2014 8:20 AM UNDER SHERIFF) [facility] gist Method Time Signature Tacrolimus Last 1999 [facility] Dose 07/28/14 [facility] Tacrolimus 10.5 5.0 - [facility] Level 15.0 ug/L [place] [...] / Volume Laterality 07/29/2014 8:20 AM 4 UNDER SHERIFF 11:17 AM UNDER SHERIFF Deysi Alicea MD LAB - BLOOD ORDERABLES Performing Organization Address City/State/ZIP Code Phon e Number [facility] [address] [place] [address] [facility] Tacrolimus level (07/22/2014 8:20 AM UNDER SHERIFF) [facility] gist Method Time Signature Tacrolimus Last 1929 [facility] Dose 07/21/14 [facility] Tacrolimus 10.8 5.0 - [facility] Level 15.0 ug/L [place] [...] / Volume Laterality 07/22/2014 8:20 AM 4 UNDER SHERIFF 11:45 AM UNDER SHERIFF Deysi Alicea MD LAB - BLOOD ORDERABLES Performing Organization Address City/State/ZIP Code Phon e Number [facility] [address] [place] [address] [facility] documented in this encounter Visit Diagnoses Not on filedocumented in this encounter Care Teams Senior Site Manager Relationship Specialty Start Date End Date Momo Forbes PCP - General Family Practice 01/02/14 [facility] [address] [place] [address] Ingrid Santana, RN Registered Nurse Transplant 02/10/12 documented as of this encounter
--- OUTSIDE RECORDS SUMMARY | 2022-06-28 13:19 | XMS_ITS | Encounter Summary ---
:1950 Author Organization [place] Address [facility] [place] [address] Care Team Providers Name Role Phone Ingrid Santana RN Unavailable Unavailable Momo Forbes Primary Care Provider Encounter Details Date Type Department Care Team Description 06/10/2014 External Order Results The Transplant Ce nter Nurse, [facility] 2nd Floor, Clinic [address]A [address] [address] Social History Tobacco Use Types [...] 60 (L) >60 LABDE SCAN (if ml/min/1.7 Croatian) 3m2 (External) GFR Estimated 49 (L) >60 [...] filedocumented in this encounter Care Teams Patient Account Specialist Relationship Specialty Start Date End Date Momo Forbes PCP - General Family Practice 01/02/14 [facility] [address] [place] [address] Ingrid Santana, RN Registered Nurse Transplant 02/10/12 documented as of this encounter
--- OUTSIDE RECORDS SUMMARY | 2022-06-28 13:19 | XMS_ITS | Encounter Summary ---
:1950 Author Organization [place] Address [address] [place] [address] Care Team Providers Name Role Phone Ingrid Santana RN Unavailable Unavailable Momo Forbes Primary Care Provider Encounter Details Date Type Department Care Team Description 06/22/2014 Orders Only [facility], Joseph Conor [facility] [address] [phone] [place] [address] 782 [place] [address] (Wo rk) Social History Tobacco [...] AM R esults for this MASS SPECTROMETRY RAIL LAYER procedure are in the results section. TACROLIMUS BY TANDEM Routine 07/08/2014 8:15 AM R esults for this MASS SPECTROMETRY RAIL LAYER procedure are in the results section. TACROLIMUS BY TANDEM Routine 07/01/2014 8:25 AM R esults for this MASS SPECTROMETRY RAIL LAYER procedure are in the results section. TACROLIMUS BY TANDEM Routine 06/24/2014 8:30 AM R esults for this MASS SPECTROMETRY RAIL LAYER procedure are in the results section. documented in this encounter Results Tacrolimus level (07/15/2014 8:25 AM RAIL LAYER) [facility] gist Method Time Signature Tacrolimus Last 07/14/14 [facility] Dose 2000 [facility] Tacrolimus 8.1 5.0 - [facility] Level 15.0 ug/L [facility] Comment: Tacrolimus Reference Range [...] / Volume Laterality 07/15/2014 8:25 AM 4 RAIL LAYER 10:56 AM RAIL LAYER Deysi Alicea MD LAB - BLOOD ORDERABLES Performing Organization Address City/State/ZIP Code Phon e Number [facility] 500 [place] [address] [facility] Tacrolimus level (07/08/2014 8:15 AM RAIL LAYER) [facility] gist Method Time Signature Tacrolimus Last 2000 [facility] Dose 07/07/14 [facility] Tacrolimus 8.6 5.0 - [facility] Level 15.0 ug/L [facility] Comment: Tacrolimus Reference Range [...] / Volume Laterality 07/08/2014 8:15 AM 4 RAIL LAYER 11:03 AM RAIL LAYER Deysi Alicea MD LAB - BLOOD ORDERABLES Performing Organization Address City/State/ZIP Code Phon e Number [facility] 500 [place] [address] [facility] Tacrolimus level (07/01/2014 8:25 AM RAIL LAYER) [facility] gist Method Time Signature Tacrolimus Last 1999, [facility] Dose 06/30/14 [facility] Tacrolimus 9.3 5.0 - [facility] Level 15.0 ug/L [facility] Comment: Tacrolimus Reference Range Kidney Transplant Pediatric [...] / Volume Laterality 07/01/2014 8:25 AM 4 RAIL LAYER 12:11 PM RAIL LAYER Mingo Dangelo MD LAB - BLOOD ORDERABLES Performing Organization Address City/State/ZIP Code Phon e Number [facility] [address] [place] [address] [facility] Tacrolimus level (06/24/2014 8:30 AM RAIL LAYER) [facility] gist Method Time Signature Tacrolimus Last 1999 [facility] Dose 06/23/14 [facility] Tacrolimus 10.5 5.0 - [facility] Level 15.0 ug/L [facility] Comment: Tacrolimus Reference Range [...] / Volume Laterality 06/24/2014 8:30 AM 4 RAIL LAYER 11:18 AM RAIL LAYER Deysi Alicea MD LAB - BLOOD ORDERABLES Performing Organization Address City/State/ZIP Code Phon e Number [facility] [address] [place] [address] [facility] documented in this encounter Visit Diagnoses Not on filedocumented in this encounter Care Teams Apple Checker Relationship Specialty Start Date End Date Momo Forbes PCP - General Family Practice 01/02/14 [facility] [address] [place] [address] Ingrid Santana, RN Registered Nurse Transplant 02/10/12 documented as of this encounter
--- OUTSIDE RECORDS SUMMARY | 2022-06-28 13:19 | XMS_ITS | Encounter Summary ---
:1950 Author Organization [place] Address [address] [place] [address] Care Team Providers Name Role Phone Ingrid Santana RN Unavailable Unavailable Momo Forbes Primary Care Provider Joseph Quintana MD Unavailable Encounter Details Date Type Department Care Team Description 06/24/2014 External Order Results The Transplant Ce nter Nurse, [facility] 2nd Floor, Clinic [address]A [address] [place] [address] Social History Tobacco Use Types [...] 8:37 AM Results f or this RESULTS MARKETING PROGRAM MANAGER procedure are i n the results section. documented in this encounter Results (ABNORMAL) TXP External Lab Result (06/24/2014 8:37 AM MARKETING PROGRAM MANAGER) Analysis Performed At Patho logist Time [...] 54 (L) >60 LABDE SCAN (if ml/min/1.7 Taiwanese) 3m2 (External) GFR Estimated 44 (L) >60 [...] / / Volume Laterality 06/24/2014 8:37 AM MARKETING PROGRAM MANAGER Narrative JESSICA PFT - 06/24/2014 2:52 PM MARKETING PROGRAM MANAGER Verified by Sofie Verdin on 4. Patient Reported LABORATORY Performing Organization Address City/State/ZIP Code Phon e Number [facility] LABDE SCAN documented in this encounter Visit Diagnoses Not on filedocumented in this encounter Care Teams Power System Operator Relationship Specialty Start Date End Date Momo Forbes PCP - General Family Practice 01/02/14 [place] [phone] Ingrid Santana, RN Registered Nurse Transplant 02/10/12 Joseph Quintana, Assigned Nephrology 03/29/21 MD Provider [address] [place] [address] [phone] documented as of this encounter
--- OUTSIDE RECORDS SUMMARY | 2022-06-28 13:19 | XMS_ITS | Encounter Summary ---
:1950 Author Organization [place] Address [address] [place] [address] Care Team Providers Name Role Phone Ingrid Santana RN Unavailable Unavailable Momo Forbes Primary Care Provider Reason for Visit Reason Onset Date Comments Medication Question 07/26/2014 Encounter Details Date Type Department Care Team Description 07/26/2014 Telephone PHARMACY Duncan, Fina, RPH Medication Question 500 [facility] [place] [address] 713 [facility] [phone] [place] [address] Social History Tobacco Use Types [...] [place] [facility] Specialty Pharmacist [phone] O NEWS WRITER documented in this encounter Plan of Treatment Not on filedocumented as of this encounter Visit Diagnoses Not on filedocumented in this encounter Care Teams Hardwood Flooring Specialist Relationship Specialty Start Date End Date Momo Forbes PCP - General Family Practice 01/02/14 [facility] [address] [place] [address] Ingrid Santana, RN Registered Nurse Transplant 02/10/12 documented as of this encounter
--- OUTSIDE RECORDS SUMMARY | 2022-06-28 13:19 | XMS_ITS | Encounter Summary ---
:1950 Author Organization [place] Address [facility] [address] Care Team Providers Name Role Phone Ingrid Santana RN Unavailable Unavailable Momo Forbes Primary Care Provider Reason for Visit Reason Onset Date Comments Transplant 06/20/2014 FK 6.6 Encounter Details Date Type Department Care Team Description 06/20/2014 Telephone Nephrology Carmelita Rosario, Transplant (FK 6.6) 2nd Floor, Clinic 2A [place] [phone] Social History Tobacco Use Types Packs/Day [...] documented in this encounter Care Teams Technical Stenographer Relationship Specialty Start Date End Date Momo Forbes PCP - General Family Practice 01/02/[address] [address] Ingrid Santana, RN Registered Nurse Transplant 02/10/12 documented as of this encounter
--- OUTSIDE RECORDS SUMMARY | 2022-06-28 13:19 | XMS_ITS | Encounter Summary ---
:1950 Author Organization [place] Address [address] [place] [address] Care Team Providers Name Role Phone Ingrid Santana RN Unavailable Unavailable Momo Forbes Primary Care Provider Joseph Quintana MD Unavailable Encounter Details Date Type Department Care Team Description 07/17/2014 External Order Results The Transplant Ce nter Nurse, [facility] 2nd Floor, Clinic [address]A [address] [place] [address] Social History Tobacco Use Types [...] 8:28 AM Results f or this RESULTS RACING SECRETARY procedure are i n the results section. documented in this encounter Results (ABNORMAL) TXP External Lab Result (07/15/2014 8:28 AM RACING SECRETARY) Analysis Performed At Patho logist Time Signature [...] 60 (L) >60 LABDE SCAN (if ml/min/1.7 Belizean) 3m2 (External) GFR Estimated 49 (L) >60 [...] / / Volume Laterality 07/15/2014 8:28 AM RACING SECRETARY Narrative JESSICA PFT - 07/17/2014 8:35 AM RACING SECRETARY Verified by Maribel Plunkett on 07/17/20 14. Patient Reported LABORATORY Performing Organization Address City/State/ZIP Code Phon e Number [facility] LABDE SCAN documented in this encounter Visit Diagnoses Not on filedocumented in this encounter Care Teams Survey Researcher Relationship Specialty Start Date End Date Momo Forbes PCP - General Family Practice 01/02/14 [place] [address] Ingrid Santana, RN Registered Nurse Transplant 02/10/12 Joseph Quintana, Assigned Nephrology 03/29/21 MD Provider [address] [place] [phone] documented as of this encounter
--- OUTSIDE RECORDS SUMMARY | 2022-06-28 13:19 | XMS_ITS | Encounter Summary ---
:1950 Author Organization [place] Address [address] [place] [address] Care Team Providers Name Role Phone Ingrid Santana RN Unavailable Unavailable Momo Forbes Primary Care Provider Joseph Quintana MD Unavailable Encounter Details Date Type Department Care Team Description 07/31/2014 External Order Results The Transplant Ce nter Nurse, [facility] 2nd Floor, Clinic [address]A [address] [address] Social History Tobacco Use Types [...] 8:25 AM Results f or this RESULTS TNT POWDER WORKER procedure are i n the results section. documented in this encounter Results (ABNORMAL) TXP External Lab Result (07/29/2014 8:25 AM TNT POWDER WORKER) [facility] Method Time Signature Sodium (External) 138 [...] / / Volume Laterality 07/29/2014 8:25 AM TNT POWDER WORKER Narrative BREEZE PFT - 07/31/2014 2:47 PM TNT POWDER WORKER Verified by Nazia Duncan on 07/31/2014. Verified by Freddy Mehta on 07/31. Patient Reported LABORATORY Performing Organization Address City/State/ZIP Code Phon e Number [facility] LABDE SCAN documented in this encounter Visit Diagnoses Not on filedocumented in this encounter Care Teams Repairer Finished Metal Relationship Specialty Start Date End Date Momo Forbes PCP - General Family Practice 01/02/14 [facility] [address] [place] [address] Ingrid Santana, RN Registered Nurse Transplant 02/10/12 Joseph Quintana, Assigned Nephrology 03/29/21 MD Provider [address] [place] [address] 1932 [place], [place] [phone] documented as of this encounter
--- OUTSIDE RECORDS SUMMARY | 2022-06-28 13:20 | XMS_ITS | Encounter Summary ---
:1950 Author Organization [place] Address [address] [place] [address] Care Team Providers Name Role Phone Ingrid Santana RN Unavailable Unavailable Momo Forbes Primary Care Provider Joseph Quintana MD Unavailable Encounter Details Date Type Department Care Team Description 05/16/2014 External Order Results The Transplant Ce nter Nurse, [facility] 2nd Floor, Clinic [address]A [address] [place] [address] Social History Tobacco Use Types [...] Estimated >60 >60 LABDE SCAN (if ml/min/1.7 Israeli) 3m2 (External) GFR Estimated 52 (L) >60 [...] filedocumented in this encounter Care Teams Sales Contracts Analyst Relationship Specialty Start Date End Date Momo Forbes PCP - General Family Practice 01/02/14 [facility] [address] [place] [address] Ingrid Santana, RN Registered Nurse Transplant 02/10/12 Joseph Quintana, Assigned Nephrology 03/29/21 MD Provider [address] [place] [phone] documented as of this encounter
--- OUTSIDE RECORDS SUMMARY | 2022-06-28 13:20 | XMS_ITS | Encounter Summary ---
:1950 Author Organization [place] Address [facility] [place] [address] Care Team Providers Name Role Phone Ingrid Santana RN Unavailable Unavailable Momo Forbes Primary Care Provider Encounter Details Date Type Department Care Team Description 06/07/2014 External Order Results The Transplant Ce nter Nurse, [facility] 2nd Floor, Clinic [address]A [address] [address] Social History Tobacco Use [...] External Lab Result (06/05/2014 8:30 AM CDT) [facility] Method Time Signature Sodium (External) 138 [...] on filedocumented in this encounter Care Teams Replanter Relationship Specialty Start Date End Date Momo Forbes PCP - General Family Practice 01/02/14 [facility] [address] [place] [address] Ingrid Santana, RN Registered Nurse Transplant 02/10/12 2 documented as of this encounter
--- OUTSIDE RECORDS SUMMARY | 2022-06-28 13:20 | XMS_ITS | Encounter Summary ---
:1950 Author Organization [place] Address [address] [place] [address] Care Team Providers Name Role Phone Ingrid Santana RN Unavailable Unavailable Momo Forbes Primary Care Provider Encounter Details Date Type Department Care Team Description 05/22/2014 Orders Only [facility], Joseph Conor [facility], [facility] jm [place] [address] [phone] [place] [address] 055 [place] [address] (Wo rk) Social History Tobacco [...] Results Tacrolimus level (06/17/2014 8:05 AM CDT) [facility] gist Method Time Signature Tacrolimus Last 06/16/14 [facility] Dose 2000 [facility] Tacrolimus 6.5 5.0 - [facility] Level 15.0 ug/L [facility] Comment: Tacrolimus Reference Range Kidney [...] Number [facility] 500 [place] [address] [facility] Tacrolimus level (06/10/2014 7:52 AM CDT) [facility] gist Method Time Signature Tacrolimus Last 1999 [facility] Dose 06/09/14 [facility] LABS Tacrolimus 7.9 5.0 - [facility] Level 15.0 ug/L [place] [...] Number [facility] 500 [place] [address] [facility] Tacrolimus level (06/05/2014 8:28 AM CDT) [facility] gist Method Time Signature Tacrolimus Last 1999 [facility] Dose 06/04/14 [facility] LABS Tacrolimus 7.9 5.0 - [facility] Level 15.0 ug/L [place] [...] Address City/[facility]/ZIP Code Phon e Number [facility] [address] LABS Tacrolimus level (05/24/2014 8:05 AM CDT) [facility] gist Method Time Signature Tacrolimus 05/23/14 [facility] Last Dose 20:00 [facility] LABS Tacrolimus Test 5.0 - [facility] Level canceled - 15.0 ug/L [place] Lab order CAMPUS LABS entry error Specimen Anatomical Collection Method Collection Time Receive d Time (Source) Location / / Volume Laterality 05/24/2014 8:05 AM 4 2:49 CDT PM CDT Deysi Alicea MD LAB - BLOOD ORDERABLES Performing Organization Address City/[facility]/ZIP Code Phon e Number [facility] [address] LABS Tacrolimus level (05/24/2014 8:05 AM CDT) [facility] gist Method Time Signature Tacrolimus Last 05/23/14 [facility] Dose 20:00 [facility] LABS Tacrolimus 5.8 5.0 - [facility] Level 15.0 ug/L [place] [...] Number [facility] [address] LABS documented in this encounter Visit Diagnoses Not on filedocumented in this encounter Care Teams National Van Owner Operator Relationship Specialty Start Date End Date Momo Forbes PCP - General Family Practice 01/02/14 [facility] 1999 [place] [address] Ingrid Santana, RN Registered Nurse Transplant 02/10/12 documented as of this encounter
--- OUTSIDE RECORDS SUMMARY | 2022-06-28 13:20 | XMS_ITS | Encounter Summary ---
:1950 Author Organization [place] Address [facility] [place] [address] Care Team Providers Name Role Phone Ingrid Santana RN Unavailable Unavailable Momo Forbes Primary Care Provider Reason for Visit Reason Comments RECHECK 3 month Tx follow Up Encounter Details Date Type Department Care Team Description 05/13/2014 Office Visit Nephrology Deysi Alicea, DM (diabetes mellitus), type 2 (H) (Primary Dx); 2nd Floor, Clinic 2A MD S/P kidney transplant Tommy Wilburn [phone] [place] [address] (Wo rk) [phone] Social History Tobacco Use Types Packs/Day Years [...] discharged on Cumadin; Cumadin was stopped by cinder block maker during the follow up visit, as he [...] Years of Education: 14 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
--- OUTSIDE RECORDS SUMMARY | 2022-06-28 13:20 | XMS_ITS | Encounter Summary ---
:1950 Author Organization [place] Address [facility] [address] Care Team Providers Name Role Phone Ingrid Santana RN Unavailable Unavailable Momo Forbes Primary Care Provider Encounter Details Date Type Department Care Team Description 05/17/2014 Orders Only Nephrology Shiva Kahn RN -donor kidney 2nd Floor, Clinic 2A [facility] transplant recipient Tommy Ruizfelisa [address] [place] [address] (Primary Dx) Building [address] [place] [phone] Social History Tobacco Use Types Packs/Day Years [...] transplant documented in this encounter Care Teams Rigging Slinger Relationship Specialty Start Date End Date Momo Forbes PCP - General Family Practice 01/02/[address] [address] Ingrid Santana RN Registered Nurse Transplant 02/10/12 documented as of this encounter
--- OUTSIDE RECORDS SUMMARY | 2022-06-28 13:20 | XMS_ITS | Encounter Summary ---
:1950 Author Organization [place] Address [address] [place] [address] Care Team Providers Name Role Phone Ingrid Santana RN Unavailable Unavailable Momo Forbes Primary Care Provider Joseph Quintana MD Unavailable Encounter Details Date Type Department Care Team Description 05/27/2014 External Order Results The Transplant Ce nter Nurse, [facility] 2nd Floor, Clinic [address]A [address] [place] [address] Social History Tobacco Use Types [...] Estimated >60 >60 LABDE SCAN (if ml/min/1.7 Nepalese) 3m2 (External) GFR Estimated 52 (L) >60 [...] filedocumented in this encounter Care Teams Box Printer Relationship Specialty Start Date End Date Momo Forbes PCP - General Family Practice 01/02/14 [facility] 1999 [place], [place] [phone] Ingrid Santana, RN Registered Nurse Transplant 02/10/12 Joseph Quintana, Assigned Nephrology 03/29/21 MD Provider [address] [place] [id number] documented as of this encounter
--- OUTSIDE RECORDS SUMMARY | 2022-06-28 13:20 | XMS_ITS | Encounter Summary ---
:1950 Author Organization [place] Address [facility] [place] [address] Care Team Providers Name Role Phone Ingrid Santana RN Unavailable Unavailable Momo Forbes Primary Care Provider Encounter Details Date Type Department Care Team Description 05/27/2014 Orders Only Nephrology Shiva Kahn RN -donor kidney 2nd Floor, Clinic 2A [facility] transplant recipient Tommy Ruizfelisa [address] [place] [phone] Social History Tobacco Use Types Packs/Day Years [...] documented in this encounter Care Teams Wood Flooring Specialist Relationship Specialty Start Date End Date Momo Forbes PCP - General Family Practice 01/02/[address] [address] Ingrid Santana RN Registered Nurse Transplant 02/10/12 documented as of this encounter
--- OUTSIDE RECORDS SUMMARY | 2022-06-28 13:20 | XMS_ITS | Encounter Summary ---
:1950 Author Organization [place] Address [facility]0 [facility] [place] [address] Care Team Providers Name Role Phone Ingrid Santana RN Unavailable Unavailable Momo Forbes Primary Care Provider Reason for Visit Reason Comments Heart Problem 6 week F/U Encounter Details Date Type Department Care Team Description 05/14/2014 [facility] [place] [facility] Kei Hernandez, shanon carey (Primary Heart MD Dx) [facility] [place] 4th Floor, Clinic 4B [address] [phone] [place], [place] (Work) [address] [phone] Social History Tobacco Use Types Packs/Day Years [...] questions or concerns. 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
--- OUTSIDE RECORDS SUMMARY | 2022-06-28 13:20 | XMS_ITS | Encounter Summary ---
:1950 Author Organization [place] Address [facility] [place] [address] Care Team Providers Name Role Phone Ingrid Santana RN Unavailable Unavailable Momo Forbes Primary Care Provider Reason for Visit Reason Onset Date Comments Pre Visit Planning - Done 05/13/2014 6 week f/u pos t op afib. medication changes last visit. Encounter Details Date Type Department Care Team Description 05/13/2014 PRE VISIT [facility] [address] Pre Visit Planning - Physicians Orestes Hernandez MD Done (6 week f/u post [facility] op afib. medication Building NILES changes last visit. ) 4th Floor, Clinic 4B [address] [phone] (Wo rk) [address] [phone] Social History Tobacco Use Types Packs/Day Years [...] on filedocumented in this encounter Care Teams Benefits Assistant Relationship Specialty Start Date End Date Momo Forbes PCP - General Family Practice 01/02/[address] [address] Ingrid Santana, RN Registered Nurse Transplant 02/10/12 documented as of this encounter
--- OUTSIDE RECORDS SUMMARY | 2022-06-28 13:20 | XMS_ITS | Encounter Summary ---
:1950 Author Organization [place] Address [facility]0 [facility] [place] [address] Care Team Providers Name Role Phone Ingrid Santana RN Unavailable Unavailable Momo Forbes Primary Care Provider Encounter Details Date Type Department Care Team Description 05/10/2014 Orders Only Nephrology Shiva Kahn RN -donor kidney 2nd Floor, Clinic 2A [facility] transplant recipient Tommy Ruizfelisa [address] [place] [address] (Primary Dx) Building [address] [place] [phone] Social History Tobacco Use Types Packs/Day Years [...] documented in this encounter Care Teams Manager Psychology Relationship Specialty Start Date End Date Momo Forbes PCP - General Family Practice 01/02/[address] [address] Ingrid Santana RN Registered Nurse Transplant 02/10/12 documented as of this encounter
--- OUTSIDE RECORDS SUMMARY | 2022-06-28 13:20 | XMS_ITS | Encounter Summary ---
:1950 Author Organization [place] Address [facility] [place] [address] Care Team Providers Name Role Phone Ingrid Santana RN Unavailable Unavailable Momo Forbes Primary Care Provider Encounter Details Date Type Department Care Team Description 05/20/2014 External Order Results The Transplant Ce nter Nurse, [facility] 2nd Floor, Clinic 2A [address] [address] Social History Tobacco Use Types [...] 55 (L) >60 LABDE SCAN (if ml/min/1.7 Bahraini) 3m2 (External) GFR Estimated 46 (L) >60 [...] filedocumented in this encounter Care Teams Equipment Worker Relationship Specialty Start Date End Date Momo Forbes PCP - General Family Practice 01/02/14 [facility] 1999 [place], [place] [phone] Ingrid Santana, RN Registered Nurse Transplant 02/10/12 documented as of this encounter
--- OUTSIDE RECORDS SUMMARY | 2022-06-28 13:21 | XMS_ITS | Encounter Summary ---
:1950 Author Organization [place] Address [address] [place] [address]. [place] [address] Care Team Providers Name Role Phone Ingrid Santana RN Unavailable Unavailable Momo Forbes Primary Care Provider Reason for Visit Reason Onset Date Comments Patient Reminder 05/09/2014 Encounter Details Date Type Department Care Team Description 05/09/2014 Telephone Nephrology Yesenia Clements LPN Patient Reminder 2nd Floor, Clinic 2A [address] [phone] Social History Tobacco Use [...] on filedocumented in this encounter Care Teams Fashion Coordinator Relationship Specialty Start Date End Date Momo Forbes PCP - General Family Practice 01/02/14 [facility] 1999 [place] [address] Ingrid Santana, RN Registered Nurse Transplant 02/10/12 documented as of this encounter
--- OUTSIDE RECORDS SUMMARY | 2022-06-28 13:21 | XMS_ITS | Encounter Summary ---
:1950 Author Organization [place] Address [address] [place] [address] Care Team Providers Name Role Phone Ingrid Santana RN Unavailable Unavailable Momo Forbes Primary Care Provider Encounter Details Date Type Department Care Team Description 04/22/2014 Orders Only [facility], Joseph Con[facility], [facility] jm [place] [address] [phone] [place] [address] 135 [place] [address] (Wo rk) Social History Tobacco [...] (ABNORMAL) Tacrolimus level (05/17/2014 8:17 AM CDT) [facility] Method Time Signature Tacrolimus Last 05/16/2014 [facility] Dose [address] [facility] LABS Tacrolimus 4.4 (L) 5.0 - [facility] Level 15.0 ug/L [place] [...] Phon e Number [facility] 500 [place], [place] [phone] [place] [address] [facility] LABS (ABNORMAL) Tacrolimus level (05/15/2014 8:15 AM CDT) [facility] gist Method Time Signature Tacrolimus Last 05/14/14 [facility] Dose [address] [facility] LABS Tacrolimus 4.6 (L) 5.0 - [facility] Level 15.0 ug/L [place] [...] Phon e Number [facility] 500 [place] [address] [facility] Tacrolimus level (05/10/2014 8:50 AM CDT) [facility] gist Method Time Signature Tacrolimus Not Provided [facility] Dose [facility] LABS Tacrolimus 14.3 5.0 - [facility] Level 15.0 ug/L [facility] [...] Phon e Number [facility] 500 [place] [address] [place] [facility] (ABNORMAL) Tacrolimus level (05/07/2014 8:15 AM CDT) [facility] gist Method Time Signature Tacrolimus Last 05/06/14 [facility] Dose [address] [facility] LABS Tacrolimus 15.9 (H) 5.0 - [facility] Level 15.0 ug/L [place] [...] Phon e Number [facility] 500 [place], [place] [phone] [place] [address] [facility] Tacrolimus level (05/03/2014 8:13 AM CDT) [facility] gist Method Time Signature Tacrolimus Last [facility] Dose [address] [facility] LABS Tacrolimus 8.8 5.0 - [facility] Level 15.0 ug/L [place] [...] Phon e Number [facility] 500 [place], [place] [phone] [place] [address] [facility] Tacrolimus level (04/30/2014 8:20 AM CDT) [facility] gist Method Time Signature Tacrolimus Last 04/29/14 [facility] Dose [address] [facility] LABS Tacrolimus 12.6 5.0 - [facility] Level 15.0 ug/L [place] [...] Phon e Number [facility] 500 [place], [place] [phone] [place] [address] [facility] Tacrolimus level (04/26/2014 8:30 AM CDT) [facility] gist Method Time Signature Tacrolimus Last 04/25/14 [facility] Dose [address] [facility] LABS Tacrolimus 10.1 5.0 - [facility] Level 15.0 ug/L [place] [...] Phon e Number [facility] 500 [place] [address] [facility] Tacrolimus level (04/24/2014 9:00 AM CDT) [facility] gist Method Time Signature Tacrolimus Last 04/23/14 [facility] Dose [address] [facility] LABS Tacrolimus 13.1 5.0 - [facility] Level 15.0 ug/L [place] [...] Phon e Number [facility] 500 [place], [place] [phone] [place] [address] LABS documented in this encounter Visit Diagnoses Not on filedocumented in this encounter Care Teams Manager Enterprise Content Management Relationship Specialty Start Date End Date Momo Forbes PCP - General Family Practice 01/02/14 [facility] 1999 [place] [address] Ingrid Santana, RN Registered Nurse Transplant 02/10/12 documented as of this encounter
--- OUTSIDE RECORDS SUMMARY | 2022-06-28 13:21 | XMS_ITS | Encounter Summary ---
:1950 Author Organization [place] Address [address] [place] [address] Care Team Providers Name Role Phone Ingrid Santana RN Unavailable Unavailable Momo Forbes Primary Care Provider Reason for Visit Auth/Cert - Closed Specialty Diagnoses / Procedures Referred By Contact Refer red To Contact Surgery Diagnoses S/P Kidney Transplant Uu Periop Procedures COMBINED CYSTOSCOPY, REMOVE STENT(S) 500 [place] [address] Phone: Fax: Referral ID Status Reason Start Date Expiration Date Visits Requ ested Visits Authorized [id number] Closed 1 1 Encounter Details Date Type Department Care Team Description 04/01/2014 Hospital Encounter [facility] [place], Migel Evans, Same Day Surgery East [address] 500 [facility] 195 [place] [phone] [place] [address] (Wo rk) Social History Tobacco Use Types [...] Scott RN - 04/01/2014 10:15 AM CDT [facility], [place] Same-Day Surgery Adult Discharge Orders & Instructions [...] To contact a doctor, call or: ??? [phone] and ask for the resident personal injury paralegal for (answered 24 hours a day) ??? Emergency Department: [facility]: [phone] (TTY for hearing impaired: [phone]) documented in this encounter Medications at Time [...] gist Range Method Time Signature Specimen Unspecified [facility] Urine CAMPUS LABS Special Specimen [facility] [...] Address City/State/ZIP Code Phon e Number [address] [address] [facility] UNIVERSITY [facility] LABS [facility] MICROBIOLOGY (ABNORMAL) UA with Microscopic (04/01/2014 9:00 AM CDT) Component Value Ref Test Analysis Performed At [facility] gist Range Method Time Signature Color Urine Yellow [facility] LABS Appearance Urine Clear [facility] LABS Glucose Urine 30 (A) NEG [facility] mg/dL UNIVERSITY CAMPUS LABS Bilirubin Urine Negative NEG [facility]S Ketones Urine Negative NEG [facility] mg/dL UNIVERSITY CAMP[facility] LABS Specific [place] 1.017 1.003 - [facility] Urine 1.035 UNIVERSITY CAMPUS LABS Blood Urine Moderate (A) NEG [facility]AMP[facility] LABS pH Urine 6.0 5.0 - [facility] 7.0 pH UNIVERSITY [place] LABS Protein Albumin 10 (A) NEG [facility] Urine mg/dL UNIVERSITY [place] LABS Urobilinogen Normal 0.0 - [facility] mg/dL 2.0 [place] mg/dL [place] LABS Nitrite Urine Negative NEG [facility]AMP[facility] LABS Leukocyte Negative NEG [facility] Esterase Urine UNIVERSITY [place] LABS Source Unspecified [facility] Urine UNIVERSITY CAMPUS [...] LAB - URINE ORDERABLES Performing Organization Address City/[facility]/ZIP Code Phon e Number [address] LABS (ABNORMAL) INR (04/01/2014 8:36 AM CDT) P athologist Signature INR 1.64 (H) 0.86 - 1.14 [facility] LABS Specimen Anatomical Collection Method Collection Time Receive d Time (Source) Location / / Volume Laterality Blood specimen 04/01/2014 8:36 AM 014 8:41 (specimen) CDT AM CDT Momo Jimenez MD LAB - BLOOD ORDERABLES Performing Organization Address City/[facility]/ZIP Code Phon e Number [facility] [address] LABS EKG 12-lead, tracing only (04/01/2014 8:28 AM CDT) Patholo gist Method Time Signature Interpretation ECG Click View RADIOLOGY Image link RESULTS to view waveform and result Specimen (Source) Anatomical Collection Method Collection Time Re ceived Time Location / / Volume Laterality 04/01/2014 8:28 AM CDT Momo Jmienez MD ECG ORDERABLES Performing Organization Address City/[facility]/ZIP Code Phon e Number RADIOLOGY RESULTS Potassium (04/01/2014 8:11 AM CDT) athologist Signature Potassium 4.1 3.4 - 5.3 [facility] mmol/L [place] LABS Specimen Anatomical Collection Method Collection Time Receive d Time (Source) Location / / Volume Laterality Blood specimen 04/01/2014 8:11 AM 014 8:27 (specimen) CDT AM CDT Momo Jimenez MD LAB - BLOOD ORDERABLES Performing Organization Address [facility]/ZIP Code Phon e Number [address] LABS (ABNORMAL) Hemoglobin (04/01/2014 8:11 AM CDT) athologist Signature Hemoglobin 10.2 (L) 13.3 - [facility] 17.7 g/dL [place] LABS Specimen Anatomical Collection Method Collection Time Receive d Time (Source) Location / / Volume Laterality Blood specimen 04/01/2014 8:11 AM 014 8:27 (specimen) CDT AM CDT Momo Jimenez MD LAB - BLOOD ORDERABLES Performing Organization Address City/[facility]/ZIP Code Phon e Number [address] LABS (ABNORMAL) Glucose by meter (04/01/2014 8:02 AM CDT) athologist Signature Glucose 158 (H) 60 - 99 POINT OF CARE mg/dL TEST, GLUCOSE Specimen Anatomical Collection Method Collection Time Receive d Time (Source) Location / / Volume Laterality 04/01/2014 8:02 AM 4 8:05 CDT AM CDT Migel Merchant MD LAB - BEAKER POCT Performing Organization Address City/[facility]/ZIP Code Phon e Number [facility] POINT OF CARE TEST, GLUCOSE POINT OF CARE TEST, GLUCOSE documented in this encounter Visit Diagnoses Not on filedocumented in this encounter Active and Recently Administered Medications Times are shown in CDT. Scheduled Medication Order 03/30/2014 03/31/2014 04/01/2014 levofloxacin (LEVAQUIN) IVPB 500 mg (COMPLETED) 0850 (Given - Provider: Addis Brannon APRN BILLING AND INSURANCE COORDINATOR - Comment: Asked by Fellow to [...] Intra-procedure documented in this encounter Care Teams Manager Studio Relationship Specialty Start Date End Date Momo Forbes PCP - General Family Practice 01/02/14 [place] [id number] Ingrid Santana, RN Registered Nurse Transplant 02/10/12 documented as of this encounter
--- OUTSIDE RECORDS SUMMARY | 2022-06-28 13:21 | XMS_ITS | Encounter Summary ---
:1950 Author Organization [place] Address [facility] [place] [address] Care Team Providers Name Role Phone Ingrid Santana RN Unavailable Unavailable Momo Forbes Primary Care Provider Encounter Details Date Type Department Care Team Description 05/02/2014 Orders Only Nephrology Shiva Kahn RN -donor kidney 2nd Floor, Clinic 2A [facility] transplant recipient Tommy Ruizfelisa [address] [place] [phone] Social History Tobacco Use Types Packs/Day Years [...] documented in this encounter Care Teams Senior Business Architect Relationship Specialty Start Date End Date Momo Forbes PCP - General Family Practice 01/02/[address] [address] Ingrid Santana RN Registered Nurse Transplant 02/10/12 documented as of this encounter
--- OUTSIDE RECORDS SUMMARY | 2022-06-28 13:21 | XMS_ITS | Encounter Summary ---
:1950 Author Organization [place] Address [facility] [place] [address] Care Team Providers Name Role Phone Ingrid Santana RN Unavailable Unavailable Momo Forbes Primary Care Provider Reason for Visit Reason Comments RECHECK s/p kidney tx Auth/Cert - Closed Specialty Diagnoses / Procedures Referred By Contact Refer red To Contact Surgery Diagnoses S/P Kidney Transplant Uu Periop Procedures COMBINED CYSTOSCOPY, REMOVE STENT(S) [address] [place] [address] Phone: Fax: Referral ID Status Reason Start Date Expiration Date Visits Requ ested Visits Authorized [id number] Closed 1 1 Encounter Details Date Type Department Care Team Description 04/01/2014 Office Visit Nephrology Deysi Alicea Immunosuppressed status (H) (Primary Dx); 2nd Floor, Clinic MD Aline High risk medication use; 2A [facility] Kidney replaced by homeroan t; Tommy DOMÍNGUEZ S/P kidney transplant [place] [address] [place] [address] [place], [place] (Work) [address] [phone] Social History Tobacco Use Types Packs/Day Years [...] -no follow up, I will ask his community services coordinator to obtain results from his local [...] at home regularly; BP checked by me ans422/80; HE was previously on Metoprolol 12.5 mg [...] of Education: 14 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 Patient roomed and ready for provider. Aad Ramirez MA documented in this encounter Plan of Treatment Not on filedocumented as of this encounter Visit Diagnoses Diagnosis Immunosuppressed status (H) - Primary Unspecified disorder of immune mechanism High risk medication use Encounter for long-term (current) use of other medications Kidney replaced by transplant S/P kidney transplant Kidney replaced by transplant documented in this encounter Care Teams Senior Support Engineer Relationship Specialty Start Date End Date Momo Forbes PCP - General Family Practice 01/02/14 [facility] [address] [place] [address] Ingrid Santana, RN Registered Nurse Transplant 02/10/12 documented as of this encounter
--- OUTSIDE RECORDS SUMMARY | 2022-06-28 13:21 | XMS_ITS | Encounter Summary ---
:1950 Author Organization [place] Address [address] [facility] [place] [address] Care Team Providers Name Role Phone Ingrid Santana RN Unavailable Unavailable Momo Forbes Primary Care Provider Reason for Referral Specialty Diagnoses / Procedures Referred By Contact Refer red To Contact Migel Merchant MD [address] [facility] 195 [place], [place] [address] Referral ID Status Reason Start Date Expiration Date Visits Requ ested Visits Authorized Scheduling Instructions ANTICOAGULATION CLINIC COLLABORATIVE PRA CTICE AGREEMENT The following represents a collaborative practice agreement among the physicians of the Clinic and staff of the Anticoagulat ion Clinic Service ([facility]) Physicians shall: 1. Refer patients requiring anticoagulat ion to a specialty service staffed by personnel of Pharmacy Services and super vised by Clinic physicians. 2. Respond to questions and referrals fr pharmacy staff regarding delinquent or difficult patients. 3. Inform the [facility] staff when a new patie [...] of adverse or sub-therapeutic effects including at [facility] the following: Has the patient experienced [...] Team Description 03/29/2014 Orders Only [facility] Migel Merchanta l fibrillation (H) (Primary Dx); Anticoagulation Clin ic MD Nathan [facility] (current) use of anticoagulant s 420 [facility] 420 [facility] 195 [phone] [place] [address] Social History Tobacco Use Types Packs/Day Years [...] Routine Atrial fibri llation (H) Ordered: 03/29/2014 Correction (Current) Use Of Anticoagulants documented as of this encounter Visit Diagnoses Diagnosis Atrial fibrillation (H) - Primary Atrial fibrillation 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
--- OUTSIDE RECORDS SUMMARY | 2022-06-28 13:21 | XMS_ITS | Encounter Summary ---
:1950 Author Organization [place] Address [address] [place] [address] Care Team Providers Name Role Phone Ingrid Santana RN Unavailable Unavailable Momo Forbes Primary Care Provider Reason for Visit Auth/Cert - Closed Specialty Diagnoses / Procedures Referred By Contact Refer red To Contact Surgery Diagnoses S/P Kidney Transplant Uu Periop Procedures COMBINED CYSTOSCOPY, REMOVE STENT(S) 500 [place] [address] Phone: Fax: Referral ID Status Reason Start Date Expiration Date Visits Requ ested Visits Authorized [id number] Closed 1 1 Encounter Details Date Type Department Care Team Description 04/01/2014 Surgery [facility] Migel Merchant , [place] of Right Double PeriOp Services J Stent 500 [facility] 420 [facility] [place] [place] [address] [place] [address] [place] [address] (Wo rk) Surgery Details Date/Time Status Location [...] Scott RN - 04/01/2014 10:15 AM CDT [facility], [place] Same-Day Surgery Adult Discharge Orders & Instructions [...] To contact a doctor, call or: ??? [phone] and ask for the resident instructor physical education for (answered 24 hours a day) ??? Emergency Department: [facility]: [phone] (TTY for hearing impaired: [phone]) documented in this encounter Medications at Time [...] Component Value Ref Test Analysis Performed At [facility] gist Range Method Time Signature Specimen Unspecified [facility] Description Urine CAMPUS LABS Special Specimen [facility] Requests received in MICROBIOLOGY preservative Culture Micro No growth [facility] MICROBIOLOGY Micro Report FINAL [facility] Status 04/02/2014 MICROBIOLOGY Specimen Anatomical Collection Method Collection Time Receive d Time (Source) Location / / Volume Laterality 04/01/2014 9:00 AM 4 9:18 CDT AM CDT Migel Merhcant MD LAB - MICRO GENERAL ORDERABL ES Performing Organization Address City/State/ZIP Code Phon e Number [facility] [address] LABS [facility] MICROBIOLOGY (ABNORMAL) UA with Microscopic (04/01/2014 9:00 AM CDT) Component Value Ref Test Analysis Performed At Patholo gist Range Method Time Signature Color Urine Yellow [facility] LABS Appearance Urine Clear [facility] LABS Glucose Urine 30 (A) NEG [facility] mg/dL UNIVERSITY CAMPUS LABS Bilirubin Urine Negative NEG [facility] LABS Ketones Urine Negative NEG [facility] mg/dL [facility] Specific [place] 1.017 1.003 - [facility] Urine 1.035 [facility] Blood Urine Moderate (A) NEG [facility] pH Urine 6.0 5.0 - [facility] 7.0 pH UNIVERSITY CAMP[facility] LABS Protein Albumin 10 (A) NEG [facility] Urine mg/dL [facility] Urobilinogen Normal 0.0 - [facility] mg/dL 2.0 UNIVERSITY mg/dL CAMPUS LABS Nitrite Urine Negative NEG [facility] LABS Leukocyte Negative NEG [facility] Esterase Urine [facility] Source Unspecified [facility] Urine UNIVERSITY CAMPUS [...] e Number [facility] [address] LABS (ABNORMAL) INR (04/01/2014 8:36 AM CDT) P athologist Signature INR 1.64 (H) 0.86 - 1.14 [facility] LABS Specimen Anatomical Collection Method Collection Time Receive d Time (Source) Location / / Volume Laterality Blood specimen 04/01/2014 8:36 AM 014 8:41 (specimen) CDT AM CDT Momo Jimenez MD LAB - BLOOD ORDERABLES Performing Organization Address City/[facility]/ZIP Code Phon e Number [facility] [address] LABS EKG 12-lead, tracing only (04/01/2014 8:28 AM CDT) [facility] gist Method Time Signature Interpretation ECG Click View RADIOLOGY Image link RESULTS to view waveform and result Specimen (Source) Anatomical Collection Method Collection Time Re ceived Time Location / / Volume Laterality 04/01/2014 8:28 AM CDT Momo Jimenez MD ECG ORDERABLES Performing Organization Address City/[facility]/ZIP Code Phon e Number RADIOLOGY RESULTS Potassium (04/01/2014 8:11 AM CDT) athologist Signature Potassium 4.1 3.4 - 5.3 [facility] mmol/L CAMPUS LABS Specimen Anatomical Collection Method Collection Time Receive d Time (Source) Location / / Volume Laterality Blood specimen 04/01/2014 8:11 AM 014 8:27 (specimen) CDT AM CDT Momo Jimenez MD LAB - BLOOD ORDERABLES Performing Organization Address City/[facility] Code Phon e Number [address] LABS (ABNORMAL) Hemoglobin (04/01/2014 8:11 AM CDT) athologist [facility] Hemoglobin 10.2 (L) 13.3 - [facility] 17.7 g/dL CAMPUS LABS Specimen Anatomical Collection Method Collection Time Receive d Time (Source) Location / / Volume Laterality Blood specimen 04/01/2014 8:11 AM 014 8:27 (specimen) CDT AM CDT Momo Jimenez MD LAB - BLOOD ORDERABLES Performing Organization Address City/[facility]/ZIP Code Phon e Number [address] LABS (ABNORMAL) Glucose by meter (04/01/2014 [...] 0850 (Given - Provider: Addis Brannon APRN EMERGENCY DOCTOR - Comment: Asked by Fellow to give [...] Intra-procedure documented in this encounter Care Teams Epic Cupid Specialists Relationship Specialty Start Date End Date Momo Forbes PCP - General Family Practice 01/02/[address] [address] Ingrid Santana, RN Registered Nurse Transplant 02/10/12 documented as of this encounter
--- OUTSIDE RECORDS SUMMARY | 2022-06-28 13:21 | XMS_ITS | Encounter Summary ---
:1950 Author Organization [place] Address [address] [place] [address] Care Team Providers Name Role Phone Ingrid Santana RN Unavailable Unavailable Momo Forbes Primary Care Provider Encounter Details Date Type Department Care Team Description 03/22/2014 Orders Only [facility], Joseph [facility], [facility] [place] [address] [phone] [place] [address] 131 [place] [address] (Wo rk) Social History Tobacco [...] Tacrolimus level (04/19/2014 8:40 AM CDT) [facility] Method Time Signature Tacrolimus Not Provided [facility] Last Dose [facility] LABS Tacrolimus 10.3 5.0 - [facility] Level 15.0 ug/L [facility] LABS Comment: Tacrolimus Reference Range [...] Phon e Number [facility] 500 [place], [place] [phone] [place] [address] [facility] LABS Tacrolimus level (04/16/2014 8:22 AM CDT) [facility] gist Method Time Signature Tacrolimus Not Provided [facility] Last Dose [facility] LABS Tacrolimus 9.1 5.0 - [facility] Level 15.0 ug/L [facility] LABS Comment: Tacrolimus Reference Range [...] Phon e Number [facility] 500 [place], [place] [id number] [place] [address] [facility] LABS Tacrolimus level (04/11/2014 8:40 AM CDT) [facility] gist Method Time Signature Tacrolimus Last 04/10/14 [facility] Dose 19:00 [facility] LABS Tacrolimus 14.4 5.0 - [facility] Level 15.0 ug/L [facility] LABS Comment: Tacrolimus Reference Range [...] Phon e Number [facility] 500 [place] [address] [facility] LABS Tacrolimus level (04/09/2014 8:45 AM CDT) [facility] gist Method Time Signature Tacrolimus Last 04/08/14 [facility] Dose 2000 [facility] LABS Tacrolimus 11.7 5.0 - [facility] Level 15.0 ug/L [facility] LABS Comment: Tacrolimus Reference Range [...] Phon e Number [facility] 500 [place], [place] [id number] [place] [address] [facility] LABS Tacrolimus level (04/05/2014 9:40 AM CDT) [facility] gist Method Time Signature Tacrolimus Last 1999 [facility] Dose 04/04/14 [facility] LABS Tacrolimus 9.7 5.0 - [facility] Level 15.0 ug/L [facility] LABS Comment: Tacrolimus Reference Range [...] Phon e Number [facility] 500 [place] [address] [facility] LABS (ABNORMAL) Tacrolimus level (03/28/2014 8:30 AM CDT) [facility] gist Method Time Signature Tacrolimus Last 03/27/14 [facility] Dose 1900 [facility] LABS Tacrolimus 15.8 (H) 5.0 - [facility] Level 15.0 ug/L [facility] LABS Comment: Tacrolimus Reference Range [...] Phon e Number [facility] 500 [place] [address] [facility] LABS Tacrolimus level (03/26/2014 9:18 AM CDT) [facility] gist Method Time Signature Tacrolimus Last 03/25/14 [facility] Dose 1900 [facility] LABS Tacrolimus 9.2 5.0 - [facility] Level 15.0 ug/L [facility] LABS Comment: Tacrolimus Reference Range [...] Phon e Number [facility] 500 [place], [place] [id number] [place] [address] [facility] LABS Tacrolimus level (03/14/2014 9:00 AM CDT) [facility] gist Method Time Signature Tacrolimus Last 1999 [facility] Dose 03/13/14 [facility] LABS Tacrolimus 9.5 5.0 - [facility] Level 15.0 ug/L [facility] LABS Comment: Tacrolimus Reference Range [...] Organization Address City/State/ZIP Code Phon e Number [id number] [place] [address] LABS documented in this encounter Visit Diagnoses Not on filedocumented in this encounter Care Teams Six Sigma Black Belt Engineer Relationship Specialty Start Date End Date Momo Forbes PCP - General Family Practice 01/02/14 [facility] [address] [place] [address] Ingrid Santana, RN Registered Nurse Transplant 02/10/12 documented as of this encounter
--- OUTSIDE RECORDS SUMMARY | 2022-06-28 13:21 | XMS_ITS | Encounter Summary ---
:1950 Author Organization [place] Address [address] [place] [address] Care Team Providers Name Role Phone Ingrid Santana RN Unavailable Unavailable Momo Forbes Primary Care Provider Reason for Visit Reason Onset Date Comments Anticoagulation 03/29/2014 Encounter Details Date Type Department Care Team Description 03/29/2014 Telephone [facility] Mary Sheffield RN Anticoagulation Anticoagulation Clin [place] [phone] Social History Tobacco Use Types Packs/Day [...] \this patient. He has INRs done at [facility] He takes Warfarin 5 mg daily He developed Afib after surgery . He sees cardiologylater this month to determine if the Warfarin can be stopped. He is having a stent removed on Tuesday04/01/14 Spoke with the Oncall Dr Perez no need to stop Warfarin INR yesterday at [facility] was 1[address] Kahn Instructed patient's to give 7.5 mg tonight and then 5 mg Sat , Sun Conservative increase since we do not know how quickly he responds. He is having the procedure on Tuesday. documented in this encounter Plan of Treatment Not on filedocumented as of this encounter Visit Diagnoses Not on filedocumented in this encounter Care Teams Crane Crew Supervisor Relationship Specialty Start Date End Date Momo Forbes PCP - General Family Practice 01/02/[address] [address] Ingrid Santana, RN Registered Nurse Transplant 02/10/12 documented as of this encounter
--- OUTSIDE RECORDS SUMMARY | 2022-06-28 13:21 | XMS_ITS | Encounter Summary ---
:1950 Author Organization [place] Address [facility] [place] [address] Care Team Providers Name Role Phone Ingrid Santana RN Unavailable Unavailable Momo Forbes Primary Care Provider Reason for Visit Reason Onset Date Comments Refill Request 04/26/2014 Encounter Details Date Type Department Care Team Description 04/26/2014 Refill Nephrology Shiva Kahn RN Refill Request 2nd Floor, Clinic 2A [facility] [place] [address] [facility]2 [place], [place] [address] [place] [address] [place] [phone] Social History Tobacco Use Types Packs/Day [...] transplant documented in this encounter Care Teams Health Sciences Dean Relationship Specialty Start Date End Date Momo Forbes PCP - General Family Practice 01/02/14 [facility] [address] [place] [address] Ingrid Santana RN Registered Nurse Transplant 02/10/12 documented as of this encounter
--- OUTSIDE RECORDS SUMMARY | 2022-06-28 13:21 | XMS_ITS | Encounter Summary ---
:1950 Author Organization [place] Address [facility] [place] [address] Care Team Providers Name Role Phone Ingrid Santana RN Unavailable Unavailable Momo Forbes Primary Care Provider Reason for Visit Reason Onset Date Comments Patient Reminder 03/26/2014 Encounter Details Date Type Department Care Team Description 03/26/2014 Telephone Nephrology Yesenia Clements LPN Patient Reminder 2nd Floor, Clinic [address]A [address] [phone] Social History Tobacco Use [...] filedocumented in this encounter Care Teams Yarn Dumper Relationship Specialty Start Date End Date Momo Forbes PCP - General Family Practice 01/02/14 [facility] [address] [place] [address] Ingrid Santana, RN Registered Nurse Transplant 02/10/12 documented as of this encounter
--- OUTSIDE RECORDS SUMMARY | 2022-06-28 13:21 | XMS_ITS | Encounter Summary ---
:1950 Author Organization [place] Address [facility] [place] [address] Care Team Providers Name Role Phone Ingrid Santana RN Unavailable Unavailable Momo Forbes Primary Care Provider Reason for Visit Reason Onset Date Comments Anticoagulation 04/01/2014 Encounter Details Date Type Department Care Team Description 04/01/2014 Telephone [facility] Joseph Levine , Anticoagulation Anticoagulation Clin ic [facility] [address] [place], [place] [phone] [facility] [phone] [place] [address] [place] [address] (Wo rk) Social History Tobacco Use Types Packs/Day Years Used Date Smoking Tobacco: Former Cigars Quit : 08/22/2006 Smokeless Tobacco: Never Alcohol Use Standard Drinks/Week Comments Yes 0 (1 standard drink = 0.6 oz pure alcoho l) occasional drink. Sex Assigned at Date Recorded Not on file documented as of this encounter Miscellaneous Notes Telephone Encounter - Joseph Levine, [facility] - 04/01/2014 5:22 PM [...] on filedocumented in this encounter Care Teams Import Dispatcher Relationship Specialty Start Date End Date Momo Forbes PCP - General Family Practice 01/02/14 [place] [id number] Ingrid Santana, RN Registered Nurse Transplant 02/10/12 documented as of this encounter
--- OUTSIDE RECORDS SUMMARY | 2022-06-28 13:21 | XMS_ITS | Encounter Summary ---
:1950 Author Organization [place] Address [facility] [place] [address] Care Team Providers Name Role Phone Ingrid Santana RN Unavailable Unavailable Momo Forbes Primary Care Provider Reason for Visit Reason Comments Heart Problem 2 m f/u Post op AFIB s/p DCC V. on warfarin 4 weeks Encounter Details Date Type Department Care Team Description 04/09/2014 [facility] fibrill [facility] (H) (Primary Dx); [facility] Enrique Maria pecified essential hypertension; Heart Other and unspecified hyperlipidemia; Tommy [facility] DM (diabetes mellitus), type 2 (H) Building [place] 4th Floor, Clinic 4B [address] [phone] [place], [place] (Work) [address] [phone] Social History Tobacco Use Types Packs/Day Years [...] you have any questions or concerns. 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 Smoking [...] 04/01/2014 Negative NEG mg/dL Final ??? Specific [place] Urine 04/01/2014 1.017 1.003 - 1.035 Final [...] NEG Ketones Urine Negative NEG mg/dL Specific [place] Urine 1.017 1.003 - 1.035 Blood Urine [...] uncontrolled documented in this encounter Care Teams Automotive Lot Attendant Relationship Specialty Start Date End Date Momo Forbes PCP - General Family Practice 01/02/14 [facility] [address] [place] [address] Ingrid Santana, RN Registered Nurse Transplant 02/10/12 documented as of this encounter
--- OUTSIDE RECORDS SUMMARY | 2022-06-28 13:21 | XMS_ITS | Encounter Summary ---
:1950 Author Organization [place] Address [facility] [place] [address] Care Team Providers Name Role Phone Ingrid Santana RN Unavailable Unavailable Momo Forbes Primary Care Provider Encounter Details Date Type Department Care Team Description 03/19/2014 Orders Only Nephrology Shiva Kahn RN -donor kidney 2nd Floor, Clinic 2A [facility] transplant recipient Tommy Ruizfelisa [address] [place] [phone] Social History Tobacco Use Types Packs/Day Years [...] documented in this encounter Care Teams Belt Cutter Relationship Specialty Start Date End Date Momo Forbes PCP - General Family Practice 01/02/[address] [address] Ingrid Santana RN Registered Nurse Transplant 02/10/12 documented as of this encounter
--- OUTSIDE RECORDS SUMMARY | 2022-06-28 13:21 | XMS_ITS | Encounter Summary ---
:1950 Author Organization [place] Address [facility] [place] [address] Care Team Providers Name Role Phone Ingrid Santana RN Unavailable Unavailable Momo Forbes Primary Care Provider Reason for Visit Reason Onset Date Comments Pre Visit Planning - Done 04/08/2014 2 m f/u Post o p AFIB s/p DCCV. on warfarin 4 weeks Encounter Details Date Type Department Care Team Description 04/08/2014 PRE VISIT [facility] [address] Pre Visit Planning - Physicians Heart MD David Done (2 m f/u Post op [facility] AF IB s/p DCCV. on [facility] warfarin 4 weeks) 4th Floor, Clinic 4B [address] [phone] (Wo rk) [address] [phone] Social History Tobacco Use Types Packs/Day Years [...] on filedocumented in this encounter Care Teams Clerk Of Superior Court Relationship Specialty Start Date End Date Momo Forbes PCP - General Family Practice 01/02/[address] [address] Ingrid Santana, RN Registered Nurse Transplant 02/10/12 documented as of this encounter
--- OUTSIDE RECORDS SUMMARY | 2022-06-28 13:21 | XMS_ITS | Encounter Summary ---
:1950 Author Organization [place] Address [address] [place] [address]. [place] [address] Care Team Providers Name Role Phone Ingrid Santana RN Unavailable Unavailable Momo Forbes Primary Care Provider Encounter Details Date Type Department Care Team Description 04/04/2014 Orders Only Nephrology Shiva Kahn RN S/P kidney transplant 2nd Floor, Clinic [address]A [address] [phone] Social History Tobacco Use Types Packs/Day Years [...] transplant documented in this encounter Care Teams Tube Turner Relationship Specialty Start Date End Date Momo Forbes PCP - General Family Practice 01/02/14 [facility] [address] [place] [address] Ingrid Santana RN Registered Nurse Transplant 02/10/12 documented as of this encounter
--- OUTSIDE RECORDS SUMMARY | 2022-06-28 13:21 | XMS_ITS | Encounter Summary ---
:1950 Author Organization [place] Address [facility] [place] [address] Care Team Providers Name Role Phone Ingrid Santana RN Unavailable Unavailable Momo Forbes Primary Care Provider Reason for Visit Reason Onset Date Comments Refill Request 04/05/2014 Tamy Cabrera Encounter Details Date Type Department Care Team Description 04/05/2014 Refill The Transplant Migel Martinez, Refill Request 2nd Floor, Clinic 2A ([facility] [address] [facility] antoprazole) Building [facility] 195 6 [facility] [address] [place] [phone] Social History Tobacco Use Types Packs/Day Years [...] Last Fill: 03/14/14 Qty: 30 Michael [facility] [phone] documented in this encounter Plan of Treatment Not on filedocumented as of this encounter Visit Diagnoses Diagnosis S/P kidney transplant Kidney replaced by transplant Atrial fibrillation (H) Atrial fibrillation documented in this encounter Care Teams Can Cleaner Relationship Specialty Start Date End Date Momo Forbes PCP - General Family Practice 01/02/14 [facility] [address] [place] [address] Ingrid Santana, RN Registered Nurse Transplant 02/10/12 documented as of this encounter
--- OUTSIDE RECORDS SUMMARY | 2022-06-28 13:21 | XMS_ITS | Encounter Summary ---
:1950 Author Organization [place] Address [address] [facility] [place] [address] Care Team Providers Name Role Phone Ingrid Santana RN Unavailable Unavailable Momo Forbes Primary Care Provider Reason for Visit Auth/Cert - Closed Specialty Diagnoses / Procedures Referred By Contact Refer red To Contact Surgery Diagnoses S/P Kidney Transplant Uu Periop Procedures COMBINED CYSTOSCOPY, REMOVE STENT(S) 500 [place] [address] Phone: Fax: Referral ID Status Reason Start Date Expiration Date Visits Requ ested Visits Authorized [id number] Closed 1 1 Encounter Details Date Type Department Care Team Description 04/01/2014 Anesthesia Event [facility] Clari Torres MD PeriOp Services [facility] ANESTHESIA [address] [place] [address] [place] [address] [place], [place] [address] (Wo rk) Anesthesia Record Procedure Summary Procedure [...] benefits and alternatives discussed with: patient or education courses sales representative. I agree with the plan [...] Intra-op documented in this encounter Care Teams Fire Pot Operator Relationship Specialty Start Date End Date Momo Forbes PCP - General Family Practice 01/02/14 [place] [id number] Ingrid Santana, RN Registered Nurse Transplant 02/10/12 documented as of this encounter
--- OUTSIDE RECORDS SUMMARY | 2022-06-28 13:22 | XMS_ITS | Encounter Summary ---
:1950 Author Organization [place] Address [address] [place] [address]. [place] [address] Care Team Providers Name Role Phone Ingrid Santana RN Unavailable Unavailable Momo Forbes Primary Care Provider Encounter Details Date Type Department Care Team Description 02/18/2014 Orders Only Nephrology Shiva Kahn, -donor kidney transp lant recipient (Primary Dx); 2nd Floor, Clinic 2A RN High risk medications (not anticoagulant s) long-term use; Tmomy Wilburn [facility] CATY HIGGINS optical brightener maker helper (current) use of anticoagulant s [place] [id number] [place] [phone] Social History Tobacco Use Types Packs/Day Years [...] for long-term (current) use of other medications optical brightener maker helper (current) use of anticoagulant s Long-term (current) use of anticoagulant s documented in this encounter Care Teams Plant And Maintenance Technician Relationship Specialty Start Date End Date Momo Forbes PCP - General Family Practice 01/02/14 [facility] [address], [place] [id number] Ingrid Santana, RN Registered Nurse Transplant 02/10/12 documented as of this encounter
--- OUTSIDE RECORDS SUMMARY | 2022-06-28 13:22 | XMS_ITS | Encounter Summary ---
:1950 Author Organization [place] Address [address] [place] [address] Care Team Providers Name Role Phone Ingrid Santana RN Unavailable Unavailable Momo Forbes Primary Care Provider Encounter Details Date Type Department Care Team Description 03/15/2014 Hospital Encounter [facility] Susy Cole, Lymphocele Unit 2A [facility] [address] [place] [phone] [place], [place] [address] (Wo rk) Social History Tobacco Use Types [...] until healed, wash daily with antibacterial soap. [facility] INTERVENTIONAL RADIOLOGY DEPARTMENT Procedure Physician Andrea Can Date of procedure Telephone numbers: [phone] Tuesday-Tuesday 8:00 am to 4:30 pm [phone] After 4:30 pm Tuesday-Tuesday, Weekends & Holidays. Ask for the Interventional Radiologist stone trimmer. Someone is available 24 hours/day [facility] toll free number: Tuesday-Tuesday 8:00 [...] CCRN March 15, 2014 9:20 AM Pager: [phone] [facility] NP - 03/15/2014 8:58 AM CDT Discussed order with Dr Merchant today. He would like drain placement if the fluid appears thin. If itappears to be a hematoma then aspiration only. D/w Farid resident and IR staff doing the case. Thanks [facility] REPRODUCTIVE SURGEON ([phone]) Jeanette Lopez RN - 03/15/2014 8:14 AM CDT Prepped and consented, INR 1.1 FSBS is 219 documented in this encounter Procedure Notes Drea Glasgow MD - 03/15/2014 9:23 AM CDT Interventional Radiology Brief Post Procedure Note Pre Procedure Diagnosis: perinephric fluid collection Post Procedure Diagnosis: Same Procedure: Aspiration of RLQ fluid collection over the tranplant kidney Proceduralist: Drea Glasgow MD, Andrea Gibbons PA-C Lump Room Supervisor: None Time Out: Prior to the start [...] Dr. Yossi Cox Resident: Dr. Drea Glasgow Lump Room Supervisor: Andrea Gibbons PA-C. Medications: 1% lidocaine and [...] Dr. Yossi Cox Resident: Dr. Drea Glasgow Lump Room Supervisor: Andrea Gibbons PA-C. Medications: 1% lidocaine and [...] Ref Test Analysis Performed At [facility] Range Method Time Signature Specimen Aspirate [facility] Gram Stain Many PMNs seen [facility] No organisms seen MICROBIOLOGY Micro Report FINAL [facility] Status 03/15/2014 MICROBIOLOGY Specimen Anatomical Collection Method Collection Time Receive d Time (Source) Location / / Volume Laterality 03/15/2014 9:05 AM 4 9:59 CDT AM CDT Celina Cole MD LAB - MICRO GENERAL ORDERABL ES Performing Organization Address City/[facility]/ZIP Code Phon e Number [facility] [address] LABS [facility] MICROBIOLOGY (ABNORMAL) Fluid Culture (03/15/2014 9:05 AM CDT) Component Value Ref Test Analysis Performed At Patholo gist Range Method Time Signature Specimen Aspirate [facility] Description [facility] LABS Culture Micro Light growth Coagulase negat jo Staphylococcus Susceptibility testing not [facility] routinely done MICROBIOLOGY (A) Micro Report FINAL 03/18/2014 [facility] Status MICROBIOLOGY Specimen Anatomical Collection Method Collection Time Receive d Time (Source) Location / / Volume Laterality Fluid specimen SPECIMEN OBTAINED 03/15/2014 9:05 AM 9:59 (specimen) BY ASPIRATION / CDT AM CDT Unknown Celina Cole MD LAB - MICRO GENERAL ORDERABL ES Performing Organization Address City/[facility]/ZIP Code Phon e Number [address] LABS [facility] MICROBIOLOGY Triglyceride Fluid (03/15/2014 9:05 AM CDT) Patholo gist Method Time Signature Triglyceride Aspirate [facility] Fluid Source [facility] Triglyceride 94 mg/dL [facility] Fluid [facility] Comment: No reference ranges have been [...] - BODY FLUIDS ORDERABLES Performing Organization Address City/[facility]/ZIP Code Phon e Number [address] [place] [address] [facility] LABS Cell count with differential fluid (03/15/2014 9:05 AM CDT) Component Value Ref Test Analysis Performed At [facility] Range Method Time Signature Body Fluid Aspirate [facility] Analysis Source [facility] Color Fluid Brown [facility] LABS Appearance Turbid [facility] Fluid [facility] RBC Fluid << Do Not /uL [facility] Report >> [facility] LABS WBC Fluid 47213 /uL [facility] LABS % Neutrophils 97 % [facility] Fluid [facility] % Lymphocytes 2 % [facility] Fluid [facility] % Eosinophils 1 % [facility] Fluid [facility] Specimen Anatomical Collection Method Collection Time Receive d Time (Source) Location / / Volume Laterality SPECIMEN OBTAINED 03/15/2014 9:05 AM 02/20 9:56 BY ASPIRATION / CDT AM CDT Unknown Celina Cole MD LAB - BODY FLUIDS ORDERABLES Performing Organization Address City/State/ZIP Code Phon e Number [facility] [address] LABS Lactate dehydrogenase fluid (03/15/2014 9:05 AM CDT) Component Value Ref Test Analysis Performed At [facility] Range Method Time Signature LD Fluid Source Aspirate [facility] LABS Lactate Canceled, Test credited U/L [facility] [...] Phon e Number [facility] 500 [place], [place] [id number] [place] [address] LABS Creatinine fluid (03/15/2014 9:05 AM CDT) [facility] Method Time Signature Creatinine Aspirate [facility] Fluid Source [facility] LABS Creatinine 1.5 mg/dL [facility] LABS Comment: No reference ranges have been [...] - BODY FLUIDS ORDERABLES Performing Organization Address City/[facility]/ZIP Code Phon e Number [facility] 500 [place] [address] [facility] LABS INR point of care (03/15/2014 8:06 AM CDT) athologist Signature INR Point of 1.1 0.86 - POINT OF CARE Care 1.14 TEST, HANDHELD METER Specimen Anatomical Collection Method Collection Time Receive d Time (Source) Location / / Volume Laterality 03/15/2014 8:06 AM 4 8:30 CDT AM CDT Celina Cole MD LAB - BLOOD ORDERABLES Performing Organization Address City/[facility]/ZIP Code Phon e Number [facility] POINT [...] LAB - BEAKER POCT Performing Organization Address City/[facility]/ZIP Code Phon e Number [facility] POINT [...] Jeanette Lopez RN) Routine, 3 g, Intravenous, PRE-OP/PRE-WV OCEDURE, Starting on Tue03/15/14 at 0734, For [...] Intra-procedure documented in this encounter Care Teams Trader Fixed Income Relationship Specialty Start Date End Date Momo Forbes PCP - General Family Practice 01/02/[address] [address] Ingrid Santana, RN Registered Nurse Transplant 02/10/12 documented as of this encounter
--- OUTSIDE RECORDS SUMMARY | 2022-06-28 13:22 | XMS_ITS | Encounter Summary ---
:1950 Author Organization [place] Address [facility]0 [facility] [place] [address] Care Team Providers Name Role Phone Ingrid Santana RN Unavailable Unavailable Momo Forbes Primary Care Provider Encounter Details Date Type Department Care Team Description 03/18/2014 Orders Only Nephrology Shiva Kahn RN -donor kidney 2nd Floor, Clinic 2A [facility] transplant recipient Tommy Ruizfelisa [address] [place] [phone] Social History Tobacco Use Types Packs/Day Years [...] transplant documented in this encounter Care Teams Associate Professor Of Criminal Justice Relationship Specialty Start Date End Date Momo Forbes PCP - General Family Practice 01/02/[address] [address] Ingrid Santana RN Registered Nurse Transplant 02/10/12 documented as of this encounter
--- OUTSIDE RECORDS SUMMARY | 2022-06-28 13:22 | XMS_ITS | Encounter Summary ---
:1950 Author Organization [place] Address [address] [place] [address] Care Team Providers Name Role Phone Ingrid Santana RN Unavailable Unavailable Momo Forbes Primary Care Provider Reason for Visit Reason Onset Date Comments Pre Visit Planning - Done 03/08/2014 Appointment on 03/11/2014 Encounter Details Date Type Department Care Team Description 03/08/2014 Telephone Nephrology Alexandria Caldera Pre Visit Planning - 2nd Floor, Clinic 2A JATIN Done (Appointment on Tommy Wilburn 03/11/20 14) [address] [address] Social History Tobacco Use [...] bring list of medications. Toldpatient to call [phone] if any questions or needs to reschedule. Alexandria Caldera CMA documented in this encounter Plan of Treatment Not on filedocumented as of this encounter Visit Diagnoses Not on filedocumented in this encounter Care Teams Oracle Fusion Middleware Developer Relationship Specialty Start Date End Date Momo Forbes PCP - General Family Practice 01/02/14 [facility] [address] [place] [address] Ingrid Santana, RN Registered Nurse Transplant 02/10/12 documented as of this encounter
--- OUTSIDE RECORDS SUMMARY | 2022-06-28 13:22 | XMS_ITS | Encounter Summary ---
:1950 Author Organization [place] Address [address] [place] [address]. [place] [address] Care Team Providers Name Role Phone Ingrid Santana RN Unavailable Unavailable Momo Forbes Primary Care Provider Encounter Details Date Type Department Care Team Description 02/18/2014 Orders Only Nephrology Shiva Kahn RN -donor kidney transplant recipie nt (Primary Dx); 2nd Floor, Clinic 2A [facility] Kidney replaced by transplant; Tommy Ruizensteen [address] [facility] S/P kidney transplant Building [address] [place] [phone] Social History Tobacco Use Types Packs/Day Years [...] documented in this encounter Care Teams Chemical Engineering Technician Relationship Specialty Start Date End Date Momo Forbes PCP - General Family Practice 01/02/14 [facility] [address] [place] [address] Ingrid Santana RN Registered Nurse Transplant 02/10/12 documented as of this encounter
--- OUTSIDE RECORDS SUMMARY | 2022-06-28 13:22 | XMS_ITS | Encounter Summary ---
:1950 Author Organization [place] Address [address] [place] [address] Care Team Providers Name Role Phone Ingrid Santana RN Unavailable Unavailable Momo Forbes Primary Care Provider Reason for Visit Auth/Cert - Closed Specialty Diagnoses / Procedures Referred By Contact Refer red To Contact Surgery Diagnoses Status Post Kidney Transplant Uu Periop Procedures COMBINED CYSTOSCOPY, REMOVE STENT(S) 500 [place] [address] Phone: Fax: Referral ID Status Reason Start Date Expiration Date Visits Requ ested Visits Authorized [id number] Closed 1 1 Encounter Details Date Type Department Care Team Description 03/11/2014 Hospital Encounter [facility] Migel Merchant, Same Day Surgery East [address] 500 [facility] 195 [place] [address] [place] [address] (Wo rk) Social History Tobacco Use Types [...] 8:46 CDT AM CDT Migel Merchant MD [facility] POCT Performing Organization Address City/State/ZIP Code Phon e Number [facility] POINT OF CARE TEST, GLUCOSE POINT OF CARE TEST, GLUCOSE documented in this encounter Visit Diagnoses Not on filedocumented in this encounter Active and Recently Administered Medications Care Teams Bale Opener Relationship Specialty Start Date End Date Momo Forbes PCP - General Family Practice 01/02/14 [facility] [address] [place] [address] Ingrid Santana, RN Registered Nurse Transplant 02/10/12 documented as of this encounter
--- OUTSIDE RECORDS SUMMARY | 2022-06-28 13:22 | XMS_ITS | Encounter Summary ---
:1950 Author Organization [place] Address [address] [place] [address]. [place] [address] Care Team Providers Name Role Phone Ingrid [...] 12-lead, tracing only (02/18/2014 9:53 AM CDT) [facility] gist Method Time Signature Interpretation ECG [...] on filedocumented in this encounter Care Teams Ct Mri Technologist Relationship Specialty Start Date End Date Momo Forbes PCP - General Family Practice 01/02/14 [facility] [address] [place] [address] Ingrid Santana, RN Registered Nurse Transplant 02/10/12 documented as of this encounter
--- OUTSIDE RECORDS SUMMARY | 2022-06-28 13:22 | XMS_ITS | Encounter Summary ---
:1950 Author Organization [place] Address [facility] [place] [address] Care Team Providers Name Role Phone Ingrid Santana RN Unavailable Unavailable Momo Forbes Primary Care Provider Encounter Details Date Type Department Care Team Description 02/18/2014 Orders Only The Transplant Deysi Burns, Kidney replaced by transplan t; 2nd Floor, Clinic 2A S/P kidney transplant Arpita [facility] 516 [facility] [address] [place] [address] [address] [place], [place] [address] [place] [address] (Wo rk) [address] [phone] Social History Tobacco Use Types Packs/Day Years [...] Signature Magnesium 1.5 (L) 1.6 - 2.3 COUNTS INCLUDE 234 [facility] mg/dL [place] LABS Specimen Anatomical Collection Method Collection Time Receive d Time (Source) Location / / Volume Laterality Blood specimen 02/18/2014 8:56 AM 014 8:57 (specimen) CDT AM CDT Kaitlynn Leon MD LAB - BLOOD ORDERABLES Performing Organization Address City/[facility]/ZIP Code Phon e Number [facility] [address] LABS (ABNORMAL) Phosphorus (02/18/2014 8:56 AM CDT) athologist Signature Phosphorus 1.9 (L) 2.5 - 4.5 COUNTS INCLUDE 234 [facility] mg/dL [place] LABS Specimen Anatomical Collection Method Collection Time Receive d Time (Source) Location / / Volume Laterality Blood specimen 02/18/2014 8:56 AM 014 8:57 (specimen) CDT AM CDT Kaitlynn Leon MD LAB - BLOOD ORDERABLES Performing Organization Address City/State/ZIP Code Phon e Number [facility] 500 [place], [place] [phone] [place] [address] LABS Tacrolimus level (02/18/2014 8:56 AM CDT) [facility] gist Method Time Signature Tacrolimus Last 02/12/14 [facility] Dose 1930 [facility] LABS Tacrolimus 14.1 5.0 - [facility] Level 15.0 ug/L [facility] LABS Comment: Tacrolimus Reference Range Kidney Transplant [...] Code Phon e Number [facility] 500 [place], [place] [phone] [place] [address] LABS (ABNORMAL) CBC with platelets differential (02/18/2014 8:56 AM CDT) [facility] Method Time Signature WBC 6.3 4.0 - [facility] 11.0 [place] 10e9/L [place] LABS RBC Count 2.59 (L) 4.4 - 5.9 [facility] 10e12/L [facility] LABS Hemoglobin 7.8 (L) 13.3 - [facility] 17.7 g/dL [facility] LABS Hematocrit 23.7 (L) 40.0 - [facility] 53.0 % [facility] LABS MCV 92 78 - 100 [facility] fl [facility] LABS MCH 30.1 26.5 - [facility] 33.0 pg [facility] LABS MCHC 32.9 31.5 - [facility] 36.5 g/dL [facility] LABS RDW 14.7 10.0 - [facility] 15.0 % [facility] LABS Platelet Count 140 (L) 150 - 450 [facility] 10e9/L [facility] LABS Diff Method Automated [facility] Method [facility] LABS % Neutrophils 84.7 % [facility] LABS % Lymphocytes 3.8 % [facility] LABS % Monocytes 6.0 % [facility] LABS % Eosinophils 4.8 % [facility] LABS % Basophils 0.5 % [facility] LABS % Immature 0.2 % [facility] Granulocytes [facility] LABS Absolute 5.3 1.6 - 8.3 [facility] Neutrophil 10e9/L [facility] LABS Absolute 0.2 (L) 0.8 - 5.3 [facility] Lymphocytes 10e9/L [facility] LABS Absolute 0.4 0.0 - 1.3 [facility] Monocytes 10e9/L [facility] LABS Absolute 0.3 0.0 - 0.7 [facility] Eosinophils 10e9/L [facility] LABS Absolute 0.0 0.0 - 0.2 [facility] Basophils 10e9/L [facility] LABS Abs Immature 0.0 0 - 0.4 [facility] Granulocytes 10e9/L [facility] LABS Specimen Anatomical Collection Method Collection Time Receive d Time (Source) Location / / Volume Laterality Blood specimen 02/18/2014 8:56 AM 014 8:57 (specimen) CDT AM CDT Kaitlynn Leon MD LAB - BLOOD ORDERABLES Performing Organization Address City/State/ZIP Code Phon e Number [phone] [place] [address] LABS (ABNORMAL) Basic metabolic panel (02/18/2014 8:56 AM CDT) [facility] gist Method Time Signature Sodium 141 133 - 144 [facility] mmol/L [facility] LABS Potassium 5.2 3.4 - 5.3 [facility] mmol/L [facility] LABS Chloride 112 (H) 94 - 109 [facility] mmol/L [facility] LABS Carbon Dioxide 18 (L) 20 - 32 [facility] mmol/L [facility] LABS Anion Gap 11 6 - 17 [facility] mmol/L [facility] LABS Glucose 185 (H) 60 - 99 [facility] mg/dL [facility] LABS Urea Nitrogen 24 7 - 30 [facility] mg/dL [facility] LABS Creatinine 1.81 (H) 0.66 - [facility] 1.25 mg/dL [facility] LABS GFR Estimate 38 (L) >60 [facility] mL/min/1.7 [place] m2 CAMPUS LABS GFR Estimate If 46 (L) >60 [facility] Black mL/min/1.7 [place] [address] CAMPUS LABS Calcium 9.4 8.5 - 10.4 [facility] mg/dL [facility] LABS Specimen Anatomical Collection Method Collection Time Receive d Time (Source) Location / / Volume Laterality Blood specimen 02/18/2014 8:56 AM 014 8:57 (specimen) CDT AM CDT Kaitlynn Leon MD LAB - BLOOD ORDERABLES Performing Organization Address City/[facility]/ZIP Code Phon e Number [address] [address] [facility] LABS (ABNORMAL) INR (02/18/2014 8:56 AM CDT) P athologist Signature INR 2.13 (H) 0.86 - 1.14 [facility] LABS Specimen Anatomical Collection Method Collection Time Receive d Time (Source) Location / / Volume Laterality Blood specimen 02/18/2014 8:56 AM 014 8:57 (specimen) CDT AM CDT Kaitlynn Leon MD LAB - BLOOD ORDERABLES Performing Organization Address City/[facility] Code Phon e Number [facility] 500 [place] [address] [facility] LABS documented in this encounter Visit Diagnoses Diagnosis Kidney replaced by transplant S/P kidney transplant Kidney replaced by transplant documented in this encounter Care Teams Valve Repairer Relationship Specialty Start Date End Date Momo Forbes PCP - General Family Practice 01/02/14 [facility] [address] [place] [address] Ingrid Santana, RN Registered Nurse Transplant 02/10/12 documented as of this encounter
--- OUTSIDE RECORDS SUMMARY | 2022-06-28 13:22 | XMS_ITS | Encounter Summary ---
:1950 Author Organization [place] Address [id number] [place] [address] Care Team Providers Name Role Phone Ingrid Santana RN Unavailable Unavailable Momo Forbes Primary Care Provider Encounter Details Date Type Department Care Team Description 03/01/2014 Orders Only Nephrology Shiva Kahn RN -donor kidney 2nd Floor, Clinic 2A [facility] transplant recipient Tommy Ruizfelisa [address] [place] [address] [phone] Social History Tobacco Use Types Packs/Day Years [...] transplant documented in this encounter Care Teams Sports Physiologist Relationship Specialty Start Date End Date Momo Forbes PCP - General Family Practice 01/02/[address] [address] Ingrid Santana RN Registered Nurse Transplant 02/10/12 documented as of this encounter
--- OUTSIDE RECORDS SUMMARY | 2022-06-28 13:22 | XMS_ITS | Encounter Summary ---
:1950 Author Organization [place] Address [facility] [place] [address] Care Team Providers Name Role Phone Ingrid Santana RN Unavailable Unavailable Momo Forbes Primary Care Provider Encounter Details Date Type Department Care Team Description 03/14/2014 Orders Only Nephrology Shiva Kahn RN -donor kidney 2nd Floor, Clinic 2A [facility] transplant recipient Tommy Ruizfelisa [address] [place] [phone] Social History Tobacco Use Types Packs/Day Years [...] transplant documented in this encounter Care Teams Cookie Padder Relationship Specialty Start Date End Date Momo Forbes PCP - General Family Practice 01/02/[address] [address] Ingrid Santana RN Registered Nurse Transplant 02/10/12 documented as of this encounter
--- OUTSIDE RECORDS SUMMARY | 2022-06-28 13:22 | XMS_ITS | Encounter Summary ---
:1950 Author Organization [place] Address [address] [facility] [place] [address] Care Team Providers Name Role Phone Ingrid Santana RN Unavailable Unavailable Momo Forbes Primary Care Provider Reason for Visit Reason Comments Surgical Followup kidney tx 02/02/14 Encounter Details Date Type Department Care Team Description 02/25/2014 Office Visit Transplant Surgery Finger, Migel Hypophosp hatemia (Primary Dx); Clinic MD Nathan Kidney replaced by transplant; 2nd Floor, Clinic 2A [address] [place] [address] -donor kidney transp lant recipient; [address] 1 95 High risk medications (not anticoagulant s) long-term use; Building FDC (current) use of anticoagulant s; [address] [place], [place]; [place] [address] Orthostatic hypotension [facility] 88 [place], [place] (Work) [phone] Social History Tobacco Use [...] Somewhat lethargic. Otherwise well Abd mod obesity. [place] in place. Drain with small amt of [...] will give mag and phos prescription. 5. [place] - Out today 6 Drain -- out [...] sults (not anticoagulants) section . long-term use supervisor intermediates (current) use of anticoagulants PHOSPHORUS Routine 02/25/2014 [...] PM 4 1:40 CDT PM CDT [facility] PO[facility] Performing Organization Address City/State/ZIP Code Phon e Number FV POINT OF CARE TEST, GLUCOSE POINT OF CARE TEST, GLUCOSE BK virus PCR quantitative (02/25/2014 10:54 AM CDT) Component Value Ref Test Analysis Performed At Patholo gist Range Method Time [facility] BK Virus DNA Plasma, EDTA [facility] Quant Source anticoagulant [facility] BK Virus DNA <390 [facility] Quant Unit: cpy/mL [facility] Copy/mL [facility] BK Virus DNA <2.6 [facility] Quant Log Unit: log [facility] (Note) [facility] INTERPRETIVE INFORMATION: BK Virus, Quantitation by [...] methodologies. Test developed and characteristics determined by [facility]. See Compliance Statement A: [employer]Joy/ BK Virus DNA Not Detected [facility] Quant Interp Reference range: Not Detected [facility] (Note) [facility] Performed by [facility], [address] [place] [id number] [email or web address], Kj Mcmillan MD, Lab. Director Specimen Anatomical Collection Method Collection Time Receive d Time (Source) Location / / Volume Laterality Blood specimen 02/25/2014 10:54 4 (specimen) AM CDT 10:55 AM CDT Deysi Alicea MD LAB - MICRO GENERAL ORDERABL ES Performing Organization Address City/State/ZIP Code Phon e Number [id number] [place] [address] LABS Immunology recipient: SOT PRA (Post Tx for Donor Spec Antibody) (02/25/2014 10:54 AM CDT) [facility] Method Time Signature Immunology PRA [facility] Test Name [facility] Immunology Specimen [facility] Result received - [facility] LABS report to follow upon completion. Specimen Anatomical Collection Method Collection Time Receive d Time (Source) Location / / Volume Laterality Blood specimen 02/25/2014 10:54 4 (specimen) AM CDT 10:55 AM CDT Deysi Alicea MD LAB - IMMUNOLOGY ORDERABLES Performing Organization Address City/State/ZIP Code Phon e Number [facility] [address] LABS (ABNORMAL) INR (02/25/2014 10:53 AM CDT) athologist Signature INR 2.39 (H) 0.86 - 1.14 [facility] LAB[facility] Specimen Anatomical Collection Method Collection Time Receive d Time (Source) Location / / Volume Laterality Blood specimen 02/25/2014 10:53 4 (specimen) AM CDT 10:54 AM CDT Migel Merchant MD LAB - BLOOD ORDERABLES Performing Organization Address City/[facility] [address]/ZIP Code Phon e Number [facility] [address] LABS (ABNORMAL) Magnesium (02/25/2014 10:53 AM CDT) athologist Signature Magnesium 1.5 (L) 1.6 - 2.3 [facility] mg/dL [place] [facility] Specimen Anatomical Collection Method Collection Time Receive d Time (Source) Location / / Volume Laterality Blood specimen 02/25/2014 10:53 4 (specimen) AM CDT 10:54 AM CDT Deysi Alicea MD LAB - BLOOD ORDERABLES Performing Organization Address City/[facility] [address]/ZIP Code Phon e Number [facility] [address] LABS (ABNORMAL) Phosphorus (02/25/2014 10:53 AM CDT) athologist Signature Phosphorus 1.3 (L) 2.5 - 4.5 [facility] mg/dL [place] [facility] Specimen Anatomical Collection Method Collection Time Receive d Time (Source) Location / / Volume Laterality Blood specimen 02/25/2014 10:53 4 (specimen) AM CDT 10:54 AM CDT Deysi Alicea MD LAB - BLOOD ORDERABLES Performing Organization Address City/State/ZIP Code Phon e Number [address] LABS Mycophenolic acid (02/25/2014 10:53 AM [...] Phon e Number [facility] [address] [facility] [place] [facility] Tacrolimus level (02/25/2014 10:53 AM CDT) [facility] Method Time Signature Tacrolimus 02/24/14 ?1999 [facility] Last Dose CORRECTED ON 02/25 AT 1055: PREVIOUSLY REPORTED 1999 [facility] [place] [facility] Tacrolimus 9.1 5.0 - [facility] Level 15.0 ug/L [facility] Comment: Tacrolimus Reference Range Kidney Transplant [...] Code Phon e Number [facility] 500 [place] [address] [facility] LABS (ABNORMAL) Basic metabolic panel (02/25/2014 10:53 AM CDT) [facility] Method Time Signature Sodium 137 133 - 144 [facility] mmol/L [facility] Potassium 4.6 3.4 - 5.3 [facility] mmol/L [facility] Chloride 108 94 - 109 [facility] mmol/L [facility] Carbon Dioxide 19 (L) 20 - 32 [facility] mmol/L [facility] [place] [facility] Anion Gap 10 6 - 17 [facility] mmol/L [facility] Glucose 217 (H) 60 - 99 [facility] mg/dL [facility] Urea Nitrogen 13 7 - 30 [facility] mg/dL [facility] Creatinine 1.48 (H) 0.66 - [facility] 1.25 mg/dL [facility] [place] [facility] GFR Estimate 48 (L) >60 [facility] mL/min/1.7 [facility] m2 [facility]AMPUS [facility] GFR Estimate If 58 (L) >60 [facility] Black mL/min/1.7 [facility] m2 [facility]AMP[facility] LAB[facility] Calcium 9.6 8.5 - 10.4 [facility] mg/dL [facility] Specimen Anatomical Collection Method Collection Time Receive d Time (Source) Location / / Volume Laterality Blood specimen 02/25/2014 10:53 4 (specimen) AM CDT 10:54 AM CDT Deysi Alicea MD LAB - BLOOD ORDERABLES Performing Organization Address City/State/ZIP Code Phon e Number [address] [address] [place] [facility] ([facility]NORMAL) CBC with platelets differential (02/25/2014 10:53 AM CDT) [facility] Method Time Signature WBC 4.9 4.0 - [facility] 11.0 [facility] 10e9/L CAMPUS LABS RBC Count 2.67 (L) 4.4 - 5.9 [facility] 10e12/L [facility] Hemoglobin 7.8 (L) 13.3 - [facility] 17.7 g/dL [facility] Hematocrit 23.5 (L) 40.0 - [facility] 53.0 % [facility] MCV 88 78 - 100 [facility] fl [facility] MCH 29.2 26.5 - [facility] 33.0 pg [facility] MCHC 33.2 31.5 - [facility] 36.5 g/dL [facility] RDW 14.3 10.0 - [facility] 15.0 % [facility] Platelet Count 179 150 - 450 [facility] 10e9/L [facility] Diff Method Automated [facility] Method [facility] % Neutrophils 89.4 % [facility] % Lymphocytes 3.9 % [facility] % Monocytes 5.1 % [facility] % Eosinophils 1.2 % [facility] % Basophils 0.2 % [facility] % Immature 0.2 % [facility] Granulocytes [facility] Absolute 4.4 1.6 - 8.3 [facility] Neutrophil 10e9/L [facility] Absolute 0.2 (L) 0.8 - 5.3 [facility] Lymphocytes 10e9/L [facility] Absolute 0.3 0.0 - 1.3 [facility] Monocytes 10e9/L [facility] Absolute 0.1 0.0 - 0.7 [facility] Eosinophils 10e9/L [facility] Absolute 0.0 0.0 - 0.2 [facility] Basophils 10e9/L [facility] Abs Immature 0.0 0 - 0.4 [facility] Granulocytes 10e9/L [facility] Specimen Anatomical Collection Method Collection Time Receive d Time (Source) Location / / Volume Laterality Blood specimen 02/25/2014 10:53 4 (specimen) AM CDT 10:54 AM CDT Deysi Alicea MD LAB - BLOOD ORDERABLES Performing Organization Address City/State/ZIP Code Phon e Number [facility] 500 [place] [address] [facility] LABS documented in this encounter Visit Diagnoses Diagnosis 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 replaced by transplant -donor kidney transplant recipie nt Kidney replaced by transplant High risk medications (not anticoagulant s) long-term use Encounter for long-term (current) use of other medications FDC (current) use of anticoagulant s Long-term (current) use of anticoagulant s Hypomagnesemia Disorders of magnesium metabolism Orthostatic hypotension documented in this encounter Care Teams Steward Dishwasher Relationship Specialty Start Date End Date Momo Forbes PCP - General Family Practice 01/02/[address] [address] Ingrid Santana, RN Registered Nurse Transplant 02/10/12 documented as of this encounter
--- OUTSIDE RECORDS SUMMARY | 2022-06-28 13:22 | XMS_ITS | Encounter Summary ---
:1950 Author Organization [place] Address [address] [place] [address]. [place] [address] Care Team Providers Name Role Phone Ingrid Santana RN Unavailable Unavailable Momo Forbes Primary Care Provider Encounter Details Date Type Department Care Team Description 03/13/2014 Orders Only Nephrology Shiva Kahn, Atrial fibrillation (H); 2nd Floor, Clinic 2A RN -donor kidney transplant recipie nt Tommy Wilburn [address] [address] [phone] Social History Tobacco Use Types Packs/Day Years [...] transplant documented in this encounter Care Teams Helper Driver Relationship Specialty Start Date End Date Momo Forbes PCP - General Family Practice 01/02/14 [facility] 1999 [place] [address] Ingrid Santana RN Registered Nurse Transplant 02/10/12 documented as of this encounter
--- OUTSIDE RECORDS SUMMARY | 2022-06-28 13:22 | XMS_ITS | Encounter Summary ---
:1950 Author Organization [place] Address [facility] [place] [address] Care Team Providers Name Role Phone Ingrid Santana RN Unavailable Unavailable Momo Raines Primary Care Provider Reason for Visit Reason Comments Consult consult for afib Encounter Details Date Type Department Care Team Description 02/18/2014 Office Visit [facility] Joseph Hernandez (H) (Primary Dx) Heart MD Sanders [facility] Building WORTH 4th Floor, Clinic 4B [address] [phone] [place], [place] (Work) [address] [phone] Social History Tobacco Use Types Packs/Day Years [...] Years of Education: 14 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 1999 [place] [address] Ingrid Santana, RN Registered Nurse Transplant 02/10/12 documented as of this encounter
--- OUTSIDE RECORDS SUMMARY | 2022-06-28 13:22 | XMS_ITS | Encounter Summary ---
:1950 Author Organization [place] Address [address] [place] [address]. [place] [address] Care Team Providers Name Role Phone Ingrid Santana RN Unavailable Unavailable Momo Forbes Primary Care Provider Encounter Details Date Type Department Care Team Description 03/11/2014 Orders Only Transplant Surgery Celina Cole (Primary Clinic A, Dx) 2nd Floor, Clinic 2A [address] [address] [facility] [place] [address] Social History Tobacco Use [...] channels documented in this encounter Care Teams Deliverer Merchandise Relationship Specialty Start Date End Date Momo Forbes PCP - General Family Practice 01/02/14 [facility] 1999 [place] [address] Ingrid Santana RN Registered Nurse Transplant 02/10/12 documented as of this encounter
--- OUTSIDE RECORDS SUMMARY | 2022-06-28 13:22 | XMS_ITS | Encounter Summary ---
:1950 Author Organization [place] Address [address] [place] [address] Care Team Providers Name Role Phone Ingrid Santana RN Unavailable Unavailable Momo Forbes Primary Care Provider Encounter Details Date Type Department Care Team Description 02/19/2014 Orders Only [facility], Joseph Conor [facility] jm [place] [address] [phone] [place] [address] 255 [place] [address] (Wo rk) Social History Tobacco [...] Results Tacrolimus level (03/19/2014 9:05 AM CDT) [facility] Method Time Signature Tacrolimus Last 03/18/14 [facility] Dose 2100 [facility] Tacrolimus 13.1 5.0 - [facility] Level 15.0 ug/L [facility] Comment: Tacrolimus Reference Range [...] Code Phon e Number [facility] 500 [place] [address] [facility] Tacrolimus level (03/12/2014 9:40 AM CDT) [facility] gist Method Time Signature Tacrolimus Not Provided [facility] Last Dose [facility] Tacrolimus 7.3 5.0 - [facility] Level 15.0 ug/L [facility] Comment: Tacrolimus Reference Range [...] Code Phon e Number [facility] 500 [place] [address] [facility] Tacrolimus level (03/08/2014 10:15 AM CDT) [facility] gist Method Time Signature Tacrolimus Last 03/07/14 [facility] Dose 2000 [facility] Tacrolimus 6.1 5.0 - [facility] Level 15.0 ug/L [facility] Comment: Tacrolimus Reference Range [...] Code Phon e Number [facility] 500 [place], [place] [id number] [place] [address] [facility] Tacrolimus level (03/06/2014 5:13 PM CDT) [facility] gist Method Time Signature Tacrolimus Last 1400 [facility] Dose 03/05/14 [facility] Tacrolimus 11.3 5.0 - [facility] Level 15.0 ug/L [facility] Comment: Tacrolimus Reference Range [...] Code Phon e Number [facility] 500 [place] [address] [facility] Tacrolimus level (03/01/2014 8:10 AM CDT) [facility] gist Method Time Signature Tacrolimus Last 02/28/14 [facility] Dose 1930 [facility] Tacrolimus 10.6 5.0 - [facility] Level 15.0 ug/L [facility] Comment: Tacrolimus Reference Range [...] Code Phon e Number [facility] 500 [place], [place] [id number] [place] [address] [facility] Tacrolimus level (02/27/2014 8:15 AM CDT) [facility] gist Method Time Signature Tacrolimus Last 02/26/14 [facility] Dose 2000 [facility] Tacrolimus 11.4 5.0 - [facility] Level 15.0 ug/L [facility] Comment: Tacrolimus Reference Range [...] AM 4 CDT 11:38 AM CDT Kaitlynn Leno MD LAB - BLOOD ORDERABLES Performing Organization Address City/State/ZIP Code Phon e Number [facility] 500 [place], [place] [phone] [place] [address] LABS HLA Lukasz Class II Single Antigen (02/25/2014 10:43 AM CDT) Component Value Ref Test Analysis Performed At [facility] Range Method Time Signature SA2 [...] Phon e Number [facility] Immunology/Histocompatabil [place], [place] [address] [facility] 500 [facility] [address] Building, Room 3-580 HISTOTRAC HLA Lukasz Class I Single Antigen (02/25/2014 10:43 AM CDT) Component Value Ref Test Analysis Performed At [facility] W[facility] Range Method Time Signature SA1 Test SA [...] LAB - IMMUNOLOGY ORDERABLES Performing Organization Address City/[facility]/ZIP Code Phon e Number [facility] Immunology/[place], [place] [address] [facility] [address] [facility] [address] [facility], Room 3-580 HISTOTRAC PRA Interfering Substance SCR (02/25/2014 10:43 AM CDT) Component Value Ref Test Analysis Performed At [facility] [employer] Method Time Signature Interfering Luminex HISTOTRAC Substance [...] LAB - IMMUNOLOGY ORDERABLES Performing Organization Address City/[facility]/ZIP Code Phon e Number [facility] Immunology/[place], [place] [address] [facility] 500 [facility] [address] [facility], Room 3-580 HISTOTRAC Tacrolimus level (02/21/2014 8:45 AM CDT) [facility] W[facility] Method Time Signature Tacrolimus Last 02/20/14 [facility] Dose 2000 [facility] Tacrolimus 7.9 5.0 - [facility] Level 15.0 ug/L [facility] Comment: Tacrolimus Reference Range [...] Code Phon e Number [facility] 500 [place] [address] [facility] LAB[facility] documented in this encounter Visit Diagnoses Not on filedocumented in this encounter Care Teams Director Script Relationship Specialty Start Date End Date Momo Forbes PCP - General Family Practice 01/02/14 [place] [phone] Ingrid Santana, RN Registered Nurse Transplant 02/10/12 documented as of this encounter
--- OUTSIDE RECORDS SUMMARY | 2022-06-28 13:22 | XMS_ITS | Encounter Summary ---
:1950 Author Organization [place] Address [address] [place] [address] Care Team Providers Name Role Phone Ingrid Santana RN Unavailable Unavailable Momo Forbes Primary Care Provider Reason for Visit Reason Onset Date Comments Previsit 02/20/2014 Encounter Details Date Type Department Care Team Description 02/20/2014 Telephone Transplant Surgery C nanda Merchant, Migel Evans MD Previsit 2nd Floor, Clinic 2A [address] [address] [facility] [place] [phone] Social History Tobacco Use Types Packs/Day Years [...] filedocumented in this encounter Care Teams Wood Miller Relationship Specialty Start Date End Date Momo Forbes PCP - General Family Practice 01/02/14 [facility] [address] [place] [phone] Ingrid Santana, RN Registered Nurse Transplant 02/10/12 documented as of this encounter
--- OUTSIDE RECORDS SUMMARY | 2022-06-28 13:22 | XMS_ITS | Encounter Summary ---
:1950 Author Organization [place] Address [facility] [place] [address] Care Team Providers Name Role Phone Ingrid [...] Floor, Clinic 2A 420 [place] Immunosuppression (H); [facility] 1 95 Atrial fibrillation (H) [phone] [place] [address] [place], [place] (Work) [address] Social History Tobacco Use [...] documented in this encounter Care Teams Clinical Nurse Occupational Medicine Relationship Specialty Start Date End Date Momo Forbes PCP - General Family Practice 01/02/[address] [address] Ingrid Santana, RN Registered Nurse Transplant 02/10/12 documented as of this encounter
--- OUTSIDE RECORDS SUMMARY | 2022-06-28 13:22 | XMS_ITS | Encounter Summary ---
:1950 Author Organization [place] Address [address] [place] [address] Care Team Providers Name Role Phone Ingrid Santana RN Unavailable Unavailable Momo Forbes Primary Care Provider Reason for Visit Reason Onset Date Comments Transplant 03/08/2014 Elevated tacrolimus level Encounter Details Date Type Department Care Team Description 03/08/2014 Telephone Nephrology Jeff Giordano (Elevated 2nd Floor, Clinic 2A Almita Palomino RN tacrolimus level) Tommy Wilburn [address] [phone] Social History Tobacco Use Types Packs/Day Years [...] repeat the level. Leonor Giordano R.N. - [phone] documented in this encounter Plan of Treatment Not on filedocumented as of this encounter Visit Diagnoses Not on filedocumented in this encounter Care Teams Director Group Sales Relationship Specialty Start Date End Date Momo Forbes PCP - General Family Practice 01/02/[address] [address] Ingrid Santana, RN Registered Nurse Transplant 02/10/12 documented as of this encounter
--- OUTSIDE RECORDS SUMMARY | 2022-06-28 13:22 | XMS_ITS | Encounter Summary ---
:1950 Author Organization [place] Address [address] [place] [address] Care Team Providers Name Role Phone Ingrid Santana RN Unavailable Unavailable Moom Forbes Primary Care Provider Reason for Visit Reason Onset Date Comments Refill Request 03/04/2014Aug Encounter Details Date Type Department Care Team Description 03/04/2014 Refill The Transplant Kaitlynn Moreno MD Refill Request 2nd Floor, Clinic 2A [facility] ([facility] [address] [address] [place], [place] [phone] (Wo rk) [address] [phone] Social History Tobacco Use Types Packs/Day Years [...] Fill Date: 02/08/14 Quantity: 60 [facility] [phone] documented in this encounter Plan of Treatment Not on filedocumented as of this encounter Visit Diagnoses Diagnosis Atrial fibrillation (H) Atrial fibrillation documented in this encounter Care Teams Furniture Shampooer Relationship Specialty Start Date End Date Momo Forbes PCP - General Family Practice 01/02/14 [facility] [address] [place] [phone] Ingrid Santana, RN Registered Nurse Transplant 02/10/12 documented as of this encounter
--- OUTSIDE RECORDS SUMMARY | 2022-06-28 13:22 | XMS_ITS | Encounter Summary ---
:1950 Author Organization [place] Address [facility] [place] [address] Care Team Providers Name Role Phone Ingrid Santana RN Unavailable Unavailable Momo Forbes Primary Care Provider Reason for Visit Reason Onset Date Comments Pt. Information/instruction 03/14/2014 Encounter Details Date Type Department Care Team Description 03/14/2014 Telephone [facility] Beto Womack Pt . Interventional Radio martha Dangelo RN Information/instructio [address] [place] [phone] Social History Tobacco Use Types Packs/Day Years [...] on filedocumented in this encounter Care Teams Sub Plant Manager Relationship Specialty Start Date End Date Momo Forbes PCP - General Family Practice 01/02/14 [facility] [address] [place] [address] Ingrid Santana RN Registered Nurse Transplant 02/10/12 documented as of this encounter
--- OUTSIDE RECORDS SUMMARY | 2022-06-28 13:22 | XMS_ITS | Encounter Summary ---
:1950 Author Organization [place] Address [address] [place] [address] Care Team Providers Name Role Phone Ingrid Santana RN Unavailable Unavailable Momo Forbes Primary Care Provider Encounter Details Date Type Department Care Team Description 03/11/2014 Anesthesia Event [facility] Aly Esquivel MD PeriOp Services 420 [facility] 500 [facility] 294 [place] [address] [place] [address] [phone] (Wo rk) Anesthesia Record Procedure Summary Procedure [...] benefits and alternatives discussed with: patient or manufacturers representative. Possibility of blood products discussed. Procedures [...] on filedocumented in this encounter Care Teams Linen Checker Relationship Specialty Start Date End Date Momo Forbes PCP - General Family Practice 01/02/[address] [address] Ingrid Santana, RN Registered Nurse Transplant 02/10/12 documented as of this encounter
--- OUTSIDE RECORDS SUMMARY | 2022-06-28 13:23 | XMS_ITS | Encounter Summary ---
:1950 Author Organization [place] Address [address] [place] [address] Care Team Providers Name Role Phone Ingrid Santana RN Unavailable Unavailable Momo Forbes Primary Care Provider Reason for Visit Reason Onset Date Comments Previsit 02/15/[address] Merchant 02/18 Encounter Details Date Type Department Care Team Description 02/15/2014 Telephone Transplant Surgery Radha Acosta LPN Prev isit (Appt with Dr Anthony Merchant 02/18) 2nd Floor, Clinic [address] [place] [address] Social History Tobacco Use Types [...] Forbes PCP - General Family Practice 01/02/14 [place] [id number] Ingrid Santana, RN Registered Nurse Transplant 02/10/12 documented as of this encounter
--- OUTSIDE RECORDS SUMMARY | 2022-06-28 13:23 | XMS_ITS | Encounter Summary ---
:1950 Author Organization [place] Address [facility] [place] [address] Care Team Providers Name Role Phone Ingrid Santana RN Unavailable Unavailable Momo Forbes Primary Care Provider Reason for Visit Reason Comments Eval/Assessment LBA Encounter Details Date Type Department Care Team Description 02/11/2014 Infusion Therapy Specialty Infusion Finger, Migel Mac y replaced by Visit and Procedure MD Nathan transplant (Primary Center [address] [place] [address] Dx) [facility] [place] [address] 5 [facility] 2nd Floor [address] [phone] [place], [place] (Work) [address] Social History Tobacco Use [...] [facility] ([facility] [...] regarding the result at your appointment in [facility] tomorrow. We look forward in seeing you on your next appointment here at [facility]. Please don???t hesitate to callus at [phone] to reschedule any of your appointments or to speak with one of the [facility] registered nurses. It was a pleasure taking care of you today. Sincerely, Gladis Olvera RN [facility] [address] [place] [address]. [place] [address] documented in this encounter Progress Notes Gladis Olvera RN - 02/11/2014 8:43 AM CDT Diego Guthrie came to [facility] today for a lab and assess following a Kidney transplant on 02/02/14. Discharge date: 02/08/14 relations coordinator: Leandro Kahn Phone number patient can be reached at: [phone] Physical Assessment: See physical assessment located under Document Flowsheets. Incision site: Dry dressing with modesta. Dressing changed. Small amt oozing, Small amt ecchymosis. Pt instructed on signs/symptoms of infection. Some swelling under incision, pt has known hematoma andwill have a renal ultrasound today at 2pm. Lines: MARGARET drain to bulb suction, serosanguinous drainage. 20 ml at [facility] appointment today. Gibbs: n/a Urine clarity: clear per patient report Hydration: discussed drinking 2-3 L daily Nutrition: Pt states appetite is improving Last BM: 02/10/14 evening Pain: 2 at rest, 5 with activity. Pain adequately controlled with home medications Laboratory tests: Standard labs drawn. Plan of care for today: Pt presents to [facility] for Labs & Assessment following Kid Txp on 02/02/14. Pt's creatinine up to 1.97 today, but ok per Dr. Leon considering the complications with transplant. Hgb 7.4 and pt c/o slight fatigue. Discussed with Dr. Leon and will hold off on a transfusion for now, but will continue to monitor hgb at [facility] appointments over the next 2 days. INR 2.23, EKG obtained and pt found to be in Normal Sinus Rhythm. Pt will remain on coumadin for now and will follow up with a athletic turf worker near [facility]. Continue daily INRs while pt is coming to [facility]. Pt's MARGARET continues to drain more [...] Discharge Plan Pt will follow up with [facility] tomorrow. 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, all questions answered: YES [...] Results Tacrolimus level (02/11/2014 7:40 AM CDT) [facility] gist Method Time Signature Tacrolimus Last 02/10/14 [facility] Dose 2000 [facility] LABS Tacrolimus 12.2 5.0 - [facility] Level 15.0 ug/L [facility] [...] Phon e Number [facility] 500 [place], [place] [id number] [place] [address] LABS (ABNORMAL) CBC with platelets differential (02/11/2014 7:40 AM CDT) [facility] gist Method Time Signature WBC 4.4 4.0 - [facility] 11.0 [facility] 10e9/L [place] LABS RBC Count 2.39 (L) 4.4 - 5.9 [facility] 10e12/L [facility] LABS Hemoglobin 7.4 (L) 13.3 - [facility] 17.7 g/dL [facility] LABS Hematocrit 22.1 (L) 40.0 - [facility] 53.0 % [facility] LABS MCV 93 78 - 100 [facility] fl [facility] LABS MCH 31.0 26.5 - [facility] 33.0 pg [facility] LABS MCHC 33.5 31.5 - [facility] 36.5 g/dL [facility] LABS RDW 14.7 10.0 - [facility] 15.0 % [facility] LABS Platelet Count 83 (L) 150 - 450 [facility] 10e9/L [facility] LABS Diff Method Automated [facility] Method [facility] LABS % Neutrophils 80.4 % [facility] LABS % Lymphocytes 8.2 % [facility] LABS % Monocytes 5.2 % [facility] LABS % Eosinophils 5.7 % [facility] LABS % Basophils 0.0 % [facility] LABS % Immature 0.5 % [facility] Granulocytes [facility] LABS Absolute 3.5 1.6 - 8.3 [facility] Neutrophil 10e9/L [facility] LABS Absolute 0.4 (L) 0.8 - 5.3 [facility] Lymphocytes 10e9/L [facility] LABS Absolute 0.2 0.0 - 1.3 [facility] Monocytes 10e9/L [facility] LABS Absolute 0.3 0.0 - 0.7 [facility] Eosinophils 10e9/L [facility] LABS Absolute 0.0 0.0 - 0.2 [facility] Basophils 10e9/L [facility] LABS Abs Immature 0.0 0 - 0.4 [facility] Granulocytes 10e9/L [facility] LABS Specimen Anatomical Collection Method Collection Time Receive d Time (Source) Location / / Volume Laterality Blood specimen 02/11/2014 7:40 AM 014 7:41 (specimen) CDT AM CDT Kaitlynn Leon MD LAB - BLOOD ORDERABLES Performing Organization Address City/[facility]/ZIP Code Phon e Number [facility] [address] LABS (ABNORMAL) Phosphorus (02/11/2014 7:40 AM CDT) athologist Signature Phosphorus 1.9 (L) 2.5 - 4.5 [facility] mg/dL [place] LABS Specimen Anatomical Collection Method Collection Time Receive d Time (Source) Location / / Volume Laterality Blood specimen 02/11/2014 7:40 AM 014 7:41 (specimen) CDT AM CDT Kaitlynn Leon MD LAB - BLOOD ORDERABLES Performing Organization Address City/[facility]/ZIP Code Phon e Number [address] LABS Magnesium (02/11/2014 7:40 AM CDT) athologist Signature Magnesium 1.9 1.6 - 2.3 [facility] mg/dL [place] LABS Specimen Anatomical Collection Method Collection Time Receive d Time (Source) Location / / Volume Laterality Blood specimen 02/11/2014 7:40 AM 014 7:41 (specimen) CDT AM CDT Kaitlynn Leon MD LAB - BLOOD ORDERABLES Performing Organization Address City/[facility]/ZIP Code Phon e Number [address] LABS (ABNORMAL) Basic metabolic panel (02/11/2014 7:40 AM CDT) [facility] gist Method Time Signature Sodium 142 133 - 144 [facility] mmol/L [facility] LABS Potassium 5.4 (H) 3.4 - 5.3 [facility] mmol/L [facility] LABS Chloride 113 (H) 94 - 109 [facility] mmol/L [facility] LABS Carbon Dioxide 22 20 - 32 [facility] mmol/L [facility] LABS Anion Gap 8 6 - 17 [facility] mmol/L [facility] LABS Glucose 155 (H) 60 - 99 [facility] mg/dL [facility] LABS Urea Nitrogen 31 (H) 7 - 30 [facility] mg/dL [facility] LABS Creatinine 1.97 (H) 0.66 - [facility] 1.25 mg/dL [facility] LABS GFR Estimate 35 (L) >60 [facility] mL/min/1.7 [place] m2 CAMPUS LABS GFR Estimate If 42 (L) >60 [facility] Black mL/min/1.7 [place] [address] CAMPUS LABS Calcium 9.1 8.5 - 10.4 [facility] mg/dL [facility] LABS Specimen Anatomical Collection Method Collection Time Receive d Time (Source) Location / / Volume Laterality Blood specimen 02/11/2014 7:40 AM 014 7:41 (specimen) CDT AM CDT Kaitlynn Leon MD LAB - BLOOD ORDERABLES Performing Organization Address City/State/ZIP Code Phon e Number [id number] [place], [place] [address]C [facility] LABS documented in this encounter Visit Diagnoses Diagnosis Kidney replaced by transplant - Primary documented in this encounter Care Teams Pulley Worker Relationship Specialty Start Date End Date Momo Forbes PCP - General Family Practice 01/02/14 [facility] [address] [place] [address] Ingrid Santana, RN Registered Nurse Transplant 02/10/12 documented as of this encounter
--- OUTSIDE RECORDS SUMMARY | 2022-06-28 13:23 | XMS_ITS | Encounter Summary ---
:1950 Author Organization [place] Address [facility]0 [facility] [place] [address] Care Team Providers Name Role Phone Ingrid Santana RN Unavailable Unavailable Momo Forbes Primary Care Provider Reason for Visit Reason Comments Eval/Assessment LBA Encounter Details Date Type Department Care Team Description 02/12/2014 Infusion Therapy Specialty Infusion Finger, Migel Mac y replaced by Visit and Procedure MD Nathan transplant (Primary Center [address] [place] [address] Dx) [facility] [place] [address] 5 [facility] 2nd Floor [address] [phone] [place], [place] (Work) [address] Social History Tobacco Use [...] Dear Diego Guthrie Thank you for choosing [facility] ([facility]) for your transplant cares. The following information is a summary of our appointment as well as important reminders. Additional information: We will see you on for labs & assessment. We look forward in seeing you on your next appointment here at [facility]. Please don???t hesitate to callus at [phone] to reschedule any of your appointments or to speak with one of the [facility] registered nurses. It was a pleasure taking care of you today. Sincerely, Gladis Olvera, BOGDAN [facility] [address] [place] [address] January 2014Tuesday 1 2 3 4 5 6 7 8 9 10 11 12 13 14 Admission 12:55 PM Migel Merchant MD Unit 7A [facility] [place] (Discharge: 02/08/2014) XR CHEST 2 VIEWS 1:55 [...] 11:00 AM (120 min.) Josseline Almendarez, BOGDAN [facility], Patient Learning Center UU TRANSPLANT FOLLOW-UP CARE 1:00 PM (120 min.) Josseline Almendarez RN [facility] [place], Patient Learning Center ECH LIMITED 3:35 PM [...] 11:00 AM (120 min.) Em Mohan, RN [facility], Patient [facility] 21 [facility] NEW TRANSPLANT 7:00 AM (360 min.) [facility] Sipc Chair 9 Specialty Infusion and Procedure Center 22 [facility] NEW TRANSPLANT 7:00 AM (360 min.) [facility] Sipc Chair 11 Specialty Infusion and Procedure Center 23 [facility] NEW TRANSPLANT 7:00 AM (360 min.) [facility] Sipc Chair 12 Specialty Infusion and Procedure Center [facility] KIDNEY TX DISCHARGE 9:00 AM (30 min.) Kaitlynn Leon MD [facility] Infusion [facility] Procedure Center US RENAL TRANSPLANT 2:00 PM (60 min.) [address] 24 [facility] NEW TRANSPLANT 7:00 AM (360 min.) [facility] Sipc Bed 14 Specialty Infusion and Procedure Center [facility] SIPC RETURN 9:00 AM (30 min.) Kaitlynn Leon MD [facility]fusion [facility] Procedure Center 25 26 [facility] SIPC PROCEDURE 7:00 AM (60 min.) [facility] Sipc Chair 9 Specialty Infusion and Procedure Center [facility] SIPC RETURN 8:00 AM (30 min.) Kaitlynn Leon MD Specialty Infusion [facility] Procedure Center 27 28 29 30 [facility] NEW 9:00 AM (30 min.) [facility] Cvc Consult [facility] Heart [facility] KIDNEY POST OP 1:45 PM [...] CDT Diego Guthrie came to [facility] today for a lab and assess following a Kidney transplant on 02/02/14. Discharge date: 02/08/14 study coordinator: Leandro Kahn Phone number patient can be reached at: [phone] Physical Assessment: See physical assessment located under Document Flowsheets. Incision site: with modesta & slight ecchymosis. Dry dressing changed. Lines: MARGARET drain to bulb suction is draining sero sanguinous fluid. Continues to drain more than 30 ml/day. Pt will have Tuesday off from [facility] and will return for LBA. Gibbs: N/A [...] for today: Pt presented to [facility] for labs and assessment. Labs drawn, reviewed with Dr. Leon. Oral phosphorus tablets ordered. Coumadin dose decreased to 5 mg every evening. Pt will have Tuesday off, return and will start with [facility] Nursing on TuesdayFebruary 15. Pt's MARGARET [...] Pt will follow up with [facility] on 02/14 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/Edge Burnisher Uppers verbalized understanding, all questions answered: YES Discharged [...] Signature INR 2.64 (H) 0.86 - 1.14 [facility] LABS Specimen Anatomical Collection Method Collection Time Receive d Time (Source) Location / / Volume Laterality Blood specimen 02/12/2014 7:41 AM 014 7:43 (specimen) CDT AM CDT Kaitlynn Leon MD LAB - BLOOD ORDERABLES Performing Organization Address City/State/ZIP Code Phon e Number [facility] 500 [place] [address] [facility] LABS Tacrolimus level (02/12/2014 7:41 AM CDT) [facility] gist Method Time Signature Tacrolimus Last 02/11/14 [facility] Dose 1900 [facility] LABS Tacrolimus 8.4 5.0 - [facility] Level 15.0 ug/L [facility] LABS [...] Phon e Number [facility] 500 [place] [address] [facility] LABS (ABNORMAL) CBC with platelets differential (02/12/2014 7:41 AM CDT) Patholo gist Method Time Signature WBC 5.0 4.0 - [facility] 11.0 [place] 10e9/L [place] LABS RBC Count 2.41 (L) 4.4 - 5.9 [facility] 10e12/L [facility] LABS Hemoglobin 7.4 (L) 13.3 - [facility] 17.7 g/dL [facility] LABS Hematocrit 22.3 (L) 40.0 - [facility] 53.0 % [facility] LABS MCV 93 78 - 100 [facility] fl [facility] LABS MCH 30.7 26.5 - [facility] 33.0 pg [facility] LABS MCHC 33.2 31.5 - [facility] 36.5 g/dL [facility] LABS RDW 14.5 10.0 - [facility] 15.0 % [facility] LABS Platelet Count 95 (L) 150 - 450 [facility] 10e9/L [facility] LABS Diff Method Automated [facility] Method [facility] LABS % Neutrophils 85.2 % [facility] LABS % Lymphocytes 5.6 % [facility] LABS % Monocytes 4.6 % [facility] LABS % Eosinophils 4.2 % [facility] % Basophils 0.2 % [facility] % Immature 0.2 % [facility] Granulocytes [facility] LABS Absolute 4.3 1.6 - 8.3 [facility] Neutrophil 10e9/L [facility] LABS Absolute 0.3 (L) 0.8 - 5.3 [facility] Lymphocytes 10e9/L [facility] LABS Absolute 0.2 0.0 - 1.3 [facility] Monocytes 10e9/L [facility] LABS Absolute 0.2 0.0 - [...] Phon e Number [facility] 500 [place], [place] [id number] [place] [address] LABS (ABNORMAL) Phosphorus (02/12/2014 7:41 AM CDT) P athologist Signature Phosphorus 1.7 (L) 2.5 - 4.5 [facility] UNIVERSITY mg/dL CAMPUS LABS Specimen Anatomical Collection Method Collection Time Receive d Time (Source) Location / / Volume Laterality Blood specimen 02/12/2014 7:41 AM 014 7:43 (specimen) CDT AM CDT Kaitlynn Leon MD LAB - BLOOD ORDERABLES Performing Organization Address City/[facility] Phon e Number [facility] [address] LABS Magnesium (02/12/2014 7:41 AM CDT) athologist Signature Magnesium 1.8 1.6 - 2.3 [facility] UNIVERSITY mg/dL CAMPUS LABS Specimen Anatomical Collection Method Collection Time Receive d Time (Source) Location / / Volume Laterality Blood specimen 02/12/2014 7:41 AM 014 7:43 (specimen) CDT AM CDT Kaitlynn Leon MD LAB - BLOOD ORDERABLES Performing Organization Address City/State/[facility] Code Phon e Number [facility] 500 [place], [place] [phone] [place] [address] LABS (ABNORMAL) Basic metabolic panel (02/12/2014 7:41 AM CDT) [facility] gist Method Time Signature Sodium 142 133 - 144 [facility] mmol/L [facility] LABS Potassium 4.9 3.4 - 5.3 [facility] mmol/L [facility] LABS Chloride 113 (H) 94 - 109 [facility] mmol/L [facility] LABS Carbon Dioxide 21 20 - 32 [facility] mmol/L [facility] LABS Anion Gap 9 6 - 17 [facility] mmol/L [facility] LABS Glucose 127 (H) 60 - 99 [facility] mg/dL [facility] LABS Urea Nitrogen 24 7 - 30 [facility] mg/dL [facility] LABS Creatinine 1.92 (H) 0.66 - [facility] 1.25 mg/dL [facility] LABS GFR Estimate 36 (L) >60 [facility] mL/min/1.7 [place] m2 CAMPUS LABS GFR Estimate If 43 (L) >60 [facility] Black mL/min/1.7 [place] [address] CAMPUS LABS Calcium 8.9 8.5 - 10.4 [facility] mg/dL [facility] LABS Specimen Anatomical Collection Method Collection Time Receive d Time (Source) Location / / Volume Laterality Blood specimen 02/12/2014 7:41 AM 014 7:43 (specimen) CDT AM CDT Kaitlynn Leon MD LAB - BLOOD ORDERABLES Performing Organization Address City/State/ZIP Code Phon e Number [facility] [address] [place] [address] [facility] LABS documented in this encounter [...] after. documented in this encounter Care Teams Ebd Teacher Relationship Specialty Start Date End Date Momo Forbes PCP - General Family Practice 01/02/[address] [address] Ingrid Santana, RN Registered Nurse Transplant 02/10/12 documented as of this encounter
--- OUTSIDE RECORDS SUMMARY | 2022-06-28 13:23 | XMS_ITS | Encounter Summary ---
:1950 Author Organization [place] Address [facility] [place] [facility] [place] [address] Care Team Providers Name Role Phone Ingrid Santana RN Unavailable Unavailable Momo Forbes Primary Care Provider Reason for Visit Reason Comments Eval/Assessment LBA Encounter Details Date Type Department Care Team Description 02/14/2014 Office Visit Specialty Infusion Edward, Naim S, Kidney r eplaced by transplant (Primary Dx); and Procedure Center Immunosuppression (H); Arpita 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
--- OUTSIDE RECORDS SUMMARY | 2022-06-28 13:23 | XMS_ITS | Encounter Summary ---
:1950 Author Organization [place] Address [address] [place] [address] Care Team Providers Name Role Phone Ingrid Santana RN Unavailable Unavailable Momo Forbes Primary Care Provider Reason for Visit Reason Onset Date Comments Refill Request 02/12/2014 clotrimazole Encounter Details Date Type Department Care Team Description 02/12/2014 Refill Nephrology Kaitlynn Leon MD Refill Request 2nd Floor, Clinic 2A [facility] (clotrimazole) [address] [id number] [phone] Social History Tobacco Use Types Packs/Day Years [...] one month supply. Thanks! Lianne Braswell PharmD [facility] [phone] documented in this encounter Plan of Treatment Not on filedocumented as of this encounter Visit Diagnoses Diagnosis S/P kidney transplant Kidney replaced by transplant documented in this encounter Care Teams Oil Well Logger Relationship Specialty Start Date End Date Momo Forbes PCP - General Family Practice 01/02/14 [facility] [address] [place] [address] Ingrid Santana, RN Registered Nurse Transplant 02/10/12 documented as of this encounter
--- OUTSIDE RECORDS SUMMARY | 2022-06-28 13:23 | XMS_ITS | Encounter Summary ---
:1950 Author Organization [place] Address Formerly [facility], [id number] [place] [address] Care Team Providers Name Role Phone Ingrid Santana RN Unavailable Unavailable Momo Forbes Primary Care Provider Reason for Visit Reason Comments Eval/Assessment LABS, ASSESSMENT, EDUCATION AND DRESSING CHANGE. Encounter Details Date Type Department Care Team Description 02/14/2014 Infusion Therapy Specialty Infusion Kaitlynn Leon MD Kidney replaced by transplant (Primary D x); Visit and Procedure Center [facility] S/P kidney transplant [facility] [address] [phone] [place], [place] (Work) [address] Social History Tobacco Use [...] 3:25 PM CDT Diego Guthrie came to [facility] today for a lab and assess following a Kidney transplant on 02/02/14. Discharge date: 02/08/14 patient care coordinator: Leandro Kahn Phone number patient can be reached at: [phone] Physical Assessment: See physical assessment located under [...] Tuesday. 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/Multimedia Technician verbalized understanding, all questions answered: YES [...] Signature INR 2.29 (H) 0.86 - 1.14 [facility] LABS Specimen Anatomical Collection Method Collection Time Receive d Time (Source) Location / / Volume Laterality Blood specimen 02/14/2014 7:51 AM 014 7:58 (specimen) CDT AM CDT Kaitlynn Leon MD LAB - BLOOD ORDERABLES Performing Organization Address City/State/ZIP Code Phon e Number [facility] [address] [place], [place] [phone] [place] [address] LABS Tacrolimus level (02/14/2014 7:51 AM CDT) [facility] gist Method Time Signature Tacrolimus Last 1914 [facility] Dose 02/13/14 [facility] LABS Tacrolimus 7.5 5.0 - [facility] Level 15.0 ug/L [facility] LABS Comment: Tacrolimus Reference Range Kidney Transplant [...] Phon e Number [facility] [address] [facility] (ABNORMAL[facility] CBC with platelets differential (02/14/2014 7:51 AM CDT) [facility] gist Method Time Signature WBC 6.9 4.0 - [facility] 11.0 [place] 10e9/L [place] LABS RBC Count 2.55 (L) 4.4 - 5.9 [facility] 10e12/L [facility] LABS Hemoglobin 7.8 (L) 13.3 - [facility] 17.7 g/dL [facility] LABS Hematocrit 23.4 (L) 40.0 - [facility] 53.0 % [facility] LABS MCV 92 78 - 100 [facility] fl [facility] LABS MCH 30.6 26.5 - [facility] 33.0 pg [facility] LABS MCHC 33.3 31.5 - [facility] 36.5 g/dL [facility] LABS RDW 14.9 10.0 - [facility] 15.0 % [facility] LABS Platelet Count 122 (L) 150 - 450 [facility] 10e9/L [facility] LABS Diff Method Automated [facility] Method [facility] LABS % Neutrophils 88.7 % [facility] LABS % Lymphocytes 2.6 % [facility] LABS % Monocytes 4.5 % [facility] LABS % Eosinophils 3.8 % [facility] [place] [facility] % Basophils 0.1 % [facility] % Immature 0.3 % [facility] Granulocytes [facility] LABS Absolute 6.1 1.6 - 8.3 [facility] Neutrophil 10e9/L [facility] LABS Absolute 0.2 (L) 0.8 - 5.3 [facility] Lymphocytes 10e9/L [facility] LABS Absolute 0.3 0.0 - 1.3 [facility] Monocytes 10e9/L [facility] LABS Absolute 0.3 0.0 - 0.7 [facility] Eosinophils 10e9/L [facility] LABS Absolute 0.0 0.0 - 0.2 [facility] Basophils 10e9/L [facility] LABS Abs Immature 0.0 0 - 0.4 [facility] Granulocytes 10e9/L [facility] LABS Specimen Anatomical Collection Method Collection Time Receive d Time (Source) Location / / Volume Laterality Blood specimen 02/14/2014 7:51 AM 014 7:53 (specimen) CDT AM CDT Joseph Quintana MD LAB - BLOOD ORDERABLES Performing Organization Address City/State/ZIP Code Phon e Number [address] LABS (ABNORMAL) Phosphorus (02/14/2014 7:51 AM CDT) P athologist Signature Phosphorus 2.4 (L) 2.5 - 4.5 [facility] mg/dL [place] LABS Specimen Anatomical Collection Method Collection Time Receive d Time (Source) Location / / Volume Laterality Blood specimen 02/14/2014 7:51 AM 014 7:53 (specimen) CDT AM CDT Joseph Quintana MD LAB - BLOOD ORDERABLES Performing Organization Address City/State/ZIP Code Phon e Number [address] LABS Magnesium (02/14/2014 7:51 AM CDT) athologist Signature Magnesium 1.6 1.6 - 2.3 [facility] mg/dL CAMPUS LABS Specimen Anatomical Collection Method Collection Time Receive d Time (Source) Location / / Volume Laterality Blood specimen 02/14/2014 7:51 AM 014 7:53 (specimen) CDT AM CDT Joseph Quintana MD LAB - BLOOD ORDERABLES Performing Organization Address City/[facility]/ZIP Code Phon e Number [facility] [address] [place] [address] [facility] LABS (ABNORMAL) Basic metabolic panel (02/14/2014 7:51 AM CDT) [facility] Method Time Signature Sodium 143 133 - 144 [facility] mmol/L [facility] LABS Potassium 5.4 (H) 3.4 - 5.3 [facility] mmol/L [facility] LABS Chloride 113 (H) 94 - 109 [facility] mmol/L [facility] LABS Carbon Dioxide 20 20 - 32 [facility] mmol/L [facility] LABS Anion Gap 9 6 - 17 [facility] mmol/L [facility] LABS Glucose 193 (H) 60 - 99 [facility] mg/dL [facility] LABS Urea Nitrogen 18 7 - 30 [facility] mg/dL [facility] LABS Creatinine 1.82 (H) 0.66 - [facility] 1.25 mg/dL [facility] LABS GFR Estimate 38 (L) >60 [facility] mL/min/1.7 [facility] m2 CAMPUS LABS GFR Estimate If 46 (L) >60 [facility] Black mL/min/1.7 [place] m2 CAMPUS LABS Calcium 9.2 8.5 - 10.4 [facility] mg/dL [facility] LABS Specimen Anatomical Collection Method Collection Time Receive d Time (Source) Location / / Volume Laterality Blood specimen 02/14/2014 7:51 AM 014 7:53 (specimen) CDT AM CDT Joseph Quintana MD LAB - BLOOD ORDERABLES Performing Organization Address City/[facility]/ZIP Code Phon e Number [facility] [address] [place] [address] [facility] LABS documented in this encounter Visit Diagnoses Diagnosis Kidney replaced by transplant - Primary S/P kidney transplant Kidney replaced by transplant documented in this encounter Care Teams Ux Information Architect Relationship Specialty Start Date End Date Momo Forbes PCP - General Family Practice 01/02/14 [facility] [address] [place] [address] Ingrid Santana, RN Registered Nurse Transplant 02/10/12 16 documented as of this encounter
--- OUTSIDE RECORDS SUMMARY | 2022-06-28 13:23 | XMS_ITS | Encounter Summary ---
:1950 Author Organization [place] Address [facility] [place] [address] Care Team Providers Name Role Phone Ingrid Santana RN Unavailable Unavailable Momo Forbes Primary Care Provider Reason for Visit Reason Comments Eval/Assessment s/p kidney transplant 8days ago Encounter Details Date Type Department Care Team Description 02/10/2014 Infusion Therapy Specialty Infusion Finger, Migel Mac y replaced by Visit and Procedure MD Nathan transplant (Primary Center [address] [place] [address] Dx) [place] [address] [address] [facility] 2nd Floor [address] [phone] [place], [place] (Work) [address] Social History Tobacco Use [...] 10:40 AM CDT Diego Guthrie came to [facility] today for a lab and assess 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 Discharge date: 02/08/14 safety coordinator: Leandro Kahn RN Phone number patient can be reached at: [phone] (girlfriend's cell) Physical Assessment: See physical assessment located under Document Flowsheets. Incision site: stapled, leaking tiny amount clear pink/pale yellow fluid from mid incision (1.5inch area on dressing from 3hours ago) covered with ABD Lines: MARGARET rlq; 30cc out last tamara; 10cc out overnite;; lite pink clear fluid Gibbs: na states is not having voiding difficulty Urine clarity: not asked Hydration: states he [id number] water yesterday but does not like that [...] Discharge Plan Pt will follow up with [facility] lab/assess in am 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/Family Worker verbalized understanding, all questions answered: YES [...] Results Tacrolimus level (02/10/2014 8:37 AM CDT) [facility] Method Time Signature Tacrolimus Not Provided [facility] Last Dose [facility] LABS Tacrolimus 6.8 5.0 - [facility] Level 15.0 ug/L [place] [...] 014 8:38 (specimen) CDT AM CDT Migel Merchnat MD LAB - BLOOD ORDERABLES Performing Organization Address City/State/ZIP Code Phon e Number [facility] 500 [place], [place] [phone] [place] [address] LABS (ABNORMAL) CBC with platelets differential (02/10/2014 8:37 AM CDT) Component Value Ref Test Analysis Performed At [facility] gist Range Method Time Signature WBC 5.5 4.0 - [facility] 11.0 [place] LABS 10e9/L RBC Count 2.53 (L) 4.4 - [facility] 5.9 [place] LABS 10e12/L Hemoglobin 7.9 (L) 13.3 - [facility] 17.7 [place] LABS g/dL Hematocrit 23.2 (L) 40.0 - [facility] 53.0 % CAMPUS LABS MCV 92 78 - 100 [facility] fl CAMPUS LABS MCH 31.2 26.5 - [facility] 33.0 pg CAMPUS LABS MCHC 34.1 31.5 - [facility] 36.5 CAMPUS LABS g/dL RDW 14.5 10.0 - [facility] 15.0 % CAMPUS LABS Platelet Count 89 (L) 150 - [facility] 450 CAMPUS LABS 10e9/L Diff Method [...] Signature Phosphorus 1.9 (L) 2.5 - 4.5 [facility] mg/dL CAMPUS LABS Specimen Anatomical Collection Method Collection Time Receive d Time (Source) Location / / Volume Laterality Blood specimen 02/10/2014 8:37 AM 014 8:38 (specimen) CDT AM CDT Migel Merchant MD LAB - BLOOD ORDERABLES Performing Organization Address City/State/ZIP Code Phon e Number [facility] [address] [place] [address] [facility] LABS Magnesium (02/10/2014 8:37 AM CDT) P athologist Signature Magnesium 2.0 1.6 - 2.3 [facility] UNIVERSITY mg/dL CAMPUS LABS Specimen Anatomical Collection Method Collection Time Receive d Time (Source) Location / / Volume Laterality Blood specimen 02/10/2014 8:37 AM 014 8:38 (specimen) CDT AM CDT Migel Merchant MD LAB - BLOOD ORDERABLES Performing Organization Address City/[facility] Code Phon e Number [facility] [address] [place] [address] [facility] LABS (ABNORMAL) Basic metabolic panel (02/10/2014 8:37 AM CDT) Patholo gist Method Time Signature Sodium 144 133 - 144 [facility] mmol/L [facility] LABS Potassium 4.8 3.4 - 5.3 [facility] mmol/L [facility] LABS Chloride 111 (H) 94 - 109 [facility] mmol/L [facility] LABS Carbon Dioxide 22 20 - 32 [facility] mmol/L [facility] LABS Anion Gap 10 6 - 17 [facility] mmol/L [facility] LABS Glucose 128 (H) 60 - 99 [facility] mg/dL [facility] LABS Urea Nitrogen 34 (H) 7 - 30 [facility] mg/dL [facility] LABS Creatinine 1.80 (H) 0.66 - [facility] 1.25 mg/dL [facility] LABS GFR Estimate 38 (L) >60 [facility] mL/min/1.7 [facility] m2 [facility]AMPUS LABS GFR Estimate If 46 (L) >60 [facility] Black mL/min/1.7 [place] [address] CAMPUS LABS Calcium 9.1 8.5 - 10.4 [facility] mg/dL [facility] LABS Specimen Anatomical Collection Method Collection Time Receive d Time (Source) Location / / Volume Laterality Blood specimen 02/10/2014 8:37 AM 014 8:38 (specimen) CDT AM CDT Migel Merchant MD LAB - BLOOD ORDERABLES Performing Organization Address City/State/ZIP Code Phon e Number [facility] [address] [place] [address] [facility] LABS documented in this encounter Visit Diagnoses Diagnosis Kidney replaced by transplant - Primary documented in this encounter Care Teams Air Export Logistics Manager Relationship Specialty Start Date End Date Momo Forbes PCP - General Family Practice 01/02/14 [facility] [address] [place] [phone] Ingrid Santana, RN Registered Nurse Transplant 02/10/12 documented as of this encounter
--- OUTSIDE RECORDS SUMMARY | 2022-06-28 13:23 | XMS_ITS | Encounter Summary ---
:1950 Author Organization [place] Address [facility] [place] [address] Care Team Providers Name Role Phone Ingrid Santana RN Unavailable Unavailable Momo Forbes Primary Care Provider Encounter Details Date Type Department Care Team Description 02/11/2014 Orders Only Nephrology Josseline Nice, Kidney replaced by 2nd Floor, Clinic 2A PREPARED FOODS ASSOCIATE transplant (Primary Tommy Wilburn Dx) [address] [phone] Social History Tobacco Use Types Packs/Day Years [...] Primary documented in this encounter Care Teams Game Programmer Relationship Specialty Start Date End Date Momo Forbes PCP - General Family Practice 01/02/14 [facility] [address] [place] [address] Ingrid Santana RN Registered Nurse Transplant 02/10/12 documented as of this encounter
--- OUTSIDE RECORDS SUMMARY | 2022-06-28 13:23 | XMS_ITS | Encounter Summary ---
:1950 Author Organization [place] Address [facility] [place] [address] Care Team Providers Name Role Phone Ingrid Santana RN Unavailable Unavailable Momo Forbes Primary Care Provider Reason for Visit Reason Comments Eval/Assessment LBA Encounter Details Date Type Department Care Team Description 02/09/2014 Infusion Therapy Specialty Infusion Finger, Migel Mac y replaced by transplant (Primary Dx); Visit and Procedure MD [facility] [address] [place] [address] 19 5 [facility] 2nd Floor [address] [phone] [place] (Work) [phone] Social History Tobacco Use [...] Guthrie Thank you for choosing [facility] ([facility]) for your transplant cares. The following information [...] Insulin Pen to your future [facility] appointments. 5) Return to [facility] tomorrow at 07:30 a.m We look forward in seeing you on your next appointment here at [facility]. Please don???t hesitate to callus at [phone] to reschedule any of your appointments or to speak with one of the [facility] registered nurses. It was a pleasure taking care of you today. Sincerely, MARC HERNANDEZ RN [facility] [address] [address] Coumadin Information: Keep Your Diet Steady Keep [...] Kidney transplant on 02/02/14. Discharge date: 02/08/14 cancer registry coordinator: Leandro Kahn Phone number patient can be reached at: [phone] Physical Assessment: See physical assessment located under [...] s/s insulin this morning/nor brought insulin to [facility] appt. I reviewed w/pt the need to monitor BG's QID and to bring Insulin to future [facility] appt's. Last BM: yesterday, loose, pt stopped [...] NS today, d/c pt from [facility] post 1L NS, return to [facility] tomorrow for LBA, No change in Prograf [...] and Phone numbers to call with concenrs (cancer registry coordinator, [address] and [facility]) Patient verbalized understanding and all questions answered. Drug level: Prograf level today reviewed with Dr Hernandes who gave orders to no change in dose. INR of 1.59 also reviewed w/Dr Hernandes who gave orders to increase Coumadin to 7.5mg QD. Patient was updated with this information and verbalized understanding. Discharge Plan Pt will follow up with [facility] tomorrow at 0730. Bring Humulog Insulin Pen to [facility] today (pt did not bring to today's appt). 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/Arcade Games Mechanic verbalized understanding, all questions answered: YES Discharged [...] Signature INR 1.59 (H) 0.86 - 1.14 [facility] LABS Specimen Anatomical Collection Method Collection Time Receive d Time (Source) Location / / Volume Laterality Blood specimen 02/09/2014 8:30 AM 014 (specimen) CDT 11:07 AM CDT Migel Merchant MD LAB - BLOOD ORDERABLES Performing Organization Address City/State/ZIP Code Phon e Number [facility] [address] [place], [place] [phone] [place] [address] LABS Tacrolimus level (02/09/2014 7:40 AM CDT) [facility] gist Method Time Signature Tacrolimus Not Provided [facility] Last Dose [facility] LABS Tacrolimus 8.0 5.0 - [facility] Level 15.0 ug/L [facility] LABS Comment: Tacrolimus Reference Range Kidney Transplant [...] Phon e Number [facility] [address] [place], [place] [phone] [place] [address] LABS (ABNORMAL) CBC with platelets differential (02/09/2014 7:40 AM CDT) [facility] Method Time Signature WBC 5.8 4.0 - [facility] 11.0 [place] 10e9/L [place] LABS RBC Count 2.66 (L) 4.4 - 5.9 [facility] 10e12/L [facility] LABS Hemoglobin 8.2 (L) 13.3 - [facility] 17.7 g/dL [facility] LABS Hematocrit 24.4 (L) 40.0 - [facility] 53.0 % [facility] LABS MCV 92 78 - 100 [facility] fl [facility] LABS MCH 30.8 26.5 - [facility] 33.0 pg [facility] LABS MCHC 33.6 31.5 - [facility] 36.5 g/dL [facility] LABS RDW 14.6 10.0 - [facility] 15.0 % [facility] LABS Platelet Count 78 (L) 150 - 450 [facility] 10e9/L [facility] LABS Diff Method Automated [facility] Method [facility] LABS % Neutrophils 84.8 % [facility] LABS % Lymphocytes 5.2 % [facility] LABS % Monocytes 6.9 % [facility] LABS % Eosinophils 2.9 % [facility] LABS % Basophils 0.0 % [facility] LABS % Immature 0.2 % [facility] Granulocytes [facility] LABS Absolute 4.9 1.6 - 8.3 [facility] Neutrophil 10e9/L [facility] LABS Absolute 0.3 (L) 0.8 - 5.3 [facility] Lymphocytes 10e9/L [facility] LABS Absolute 0.4 0.0 - 1.3 [facility] Monocytes 10e9/L [facility] LABS Absolute 0.2 0.0 - 0.7 [facility] Eosinophils 10e9/L [facility] LABS Absolute 0.0 0.0 - 0.2 [facility] Basophils 10e9/L [facility] LABS Abs Immature 0.0 0 - 0.4 [facility] Granulocytes 10e9/L [facility] LABS Specimen Anatomical Collection Method Collection Time Receive d Time (Source) Location / / Volume Laterality Blood specimen 02/09/2014 7:40 AM 014 7:49 (specimen) CDT AM CDT Migel Merchant MD LAB - BLOOD ORDERABLES Performing Organization Address City/State/ZIP Code Phon e Number [phone] [place] [address] LABS (ABNORMAL) Phosphorus (02/09/2014 7:40 AM CDT) P athologist Signature Phosphorus 2.0 (L) 2.5 - 4.5 [facility] mg/dL CAMPUS LABS Specimen Anatomical Collection Method Collection Time Receive d Time (Source) Location / / Volume Laterality Blood specimen 02/09/2014 7:40 AM 014 7:49 (specimen) CDT AM CDT Migel Merchant MD LAB - BLOOD ORDERABLES Performing Organization Address City/[facility]/ZIP Code Phon e Number [facility] [address] LABS Magnesium (02/09/2014 7:40 AM CDT) [...] Phon e Number [facility] 500 [place], [place] [phone] [place] [address] LABS (ABNORMAL) Basic metabolic panel (02/09/2014 7:40 AM CDT) Patholo gist Method Time Signature Sodium 145 (H) 133 - 144 [facility] mmol/L [facility] LABS Potassium 4.5 3.4 - 5.3 [facility] mmol/L [facility] LABS Chloride 110 (H) 94 - 109 [facility] mmol/L [facility] LABS Carbon Dioxide 24 20 - 32 [facility] mmol/L [facility] LABS Anion Gap 10 6 - 17 [facility] mmol/L [facility] LABS Glucose 137 (H) 60 - 99 [facility] mg/dL [facility] LABS Urea Nitrogen 48 (H) 7 - 30 [facility] mg/dL [facility] LABS Creatinine 2.02 (H) 0.66 - [facility] 1.25 mg/dL [facility] LABS GFR Estimate 34 (L) >60 [facility] mL/min/1.7 [place] m2 CAMPUS LABS GFR Estimate If 41 (L) >60 [facility] Black mL/min/1.7 [place] m2 CAMPUS LABS Calcium 9.2 8.5 - 10.4 [facility] mg/dL [facility] LABS Specimen Anatomical Collection Method Collection Time Receive d Time (Source) Location / / Volume Laterality Blood specimen 02/09/2014 7:40 AM 014 7:49 (specimen) CDT AM CDT Migel Merchant MD LAB - BLOOD ORDERABLES Performing Organization Address City/State/ZIP Code Phon e Number [facility] [address] [place] [address] [facility] LABS documented in this encounter Visit [...] dose documented in this encounter Care Teams Sign Language Translator Relationship Specialty Start Date End Date Momo Forbes PCP - General Family Practice 01/02/14 [facility] [address] [place] [address] Ingrid Santana, RN Registered Nurse Transplant 02/10/12 documented as of this encounter
--- OUTSIDE RECORDS SUMMARY | 2022-06-28 13:23 | XMS_ITS | Encounter Summary ---
:1950 Author Organization [place] Address [facility] [place] [address] Care Team Providers Name Role Phone Ingrid Santana RN Unavailable Unavailable Momo Forbes Primary Care Provider Reason for Visit Reason Comments Eval/Assessment LBA Encounter Details Date Type Department Care Team Description 02/11/2014 Office Visit Specialty Infusion Kaitlynn Leon, Complica tion of transplanted kidney (Primary Dx); and Procedure Center Anemia; [place] [facility] HTN (hy pertension); [facility] Immunosuppression (H); 2nd Floor [address] Hypophosphatemia 6 [facility] [address] [place], [place] [phone] (Work) [phone] Social History Tobacco Use Types Packs/Day Years [...] Years of Education: 14 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 Discharge: 02/08/2014 Using Medcard: Yes Med review: Went over all meds and dosing with patient and Tete. Went over Prograf and Cellcept side effects. Medication questions/concerns: Patient requested that we transfer 4 rx's (to profile) from local pharmacy to us here. Pt wants us to get Zofran filled for cotton picker 02/12- new dose of 2 Q6-8H PRN. Using medbox: Yes Viewed DVD: Didn't bring up Pain: #2-3, feels good, rarely using Oxycodone Other Concerns: none No further questions for this pharmacist. Yi [facility] [phone] documented in this encounter Plan of Treatment [...] INR 2.28 (H) 0.86 - 1.14 [facility] Specimen Anatomical Collection Method Collection Time Receive d Time (Source) Location / / Volume Laterality 02/11/2014 9:30 AM 4 9:41 CDT AM CDT Kaitlynn Leon MD LAB - BLOOD ORDERABLES Performing Organization Address City/State/ZIP Code Phon e Number [id number] [place] [address] LABS documented in this encounter Visit Diagnoses Diagnosis Complication of transplanted kidney - Pr imary Complications of transplanted kidney Anemia Anemia, unspecified HTN (hypertension) Unspecified essential hypertension Immunosuppression (H) Unspecified disorder of immune mechanism Hypophosphatemia Disorders of phosphorus metabolism documented in this encounter Care Teams Plant Guide Relationship Specialty Start Date End Date Momo Forbes PCP - General Family Practice 01/02/14 [facility] [address] [place] [address] Ingrid Santana, RN Registered Nurse Transplant 02/10/12 documented as of this encounter
--- OUTSIDE RECORDS SUMMARY | 2022-06-28 13:23 | XMS_ITS | Encounter Summary ---
:1950 Author Organization [place] Address [facility] [place] [address] Care Team Providers Name Role Phone Ingrid Santana RN Unavailable Unavailable Momo Forbes Primary Care Provider Encounter Details Date Type Department Care Team Description 02/11/2014 Radiant Appointment [facility] 1st Floor, Clinic [address] [place], [place] [address] Social History Tobacco Use Types Packs/Day Years [...] Procedure Name Priority Date/Time Associated Diagnosis Comme [facility] US RENAL TRANSPLANT Routine 02/11/2014 2:48 [...] filedocumented in this encounter Care Teams Financial Aid Manager Relationship Specialty Start Date End Date Momo Forbes PCP - General Family Practice 01/02/14 [facility] [address] [place] [address] Ingrid Santana, RN Registered Nurse Transplant 02/10/12 documented as of this encounter
--- OUTSIDE RECORDS SUMMARY | 2022-06-28 13:23 | XMS_ITS | Encounter Summary ---
:1950 Author Organization [place] Address [facility] [place] [address] Care Team Providers Name Role Phone Ingrid Santana RN Unavailable Unavailable Momo Forbes Primary Care Provider Reason for Visit Reason Onset Date Comments Refill Request 02/15/2014 Encounter Details Date Type Department Care Team Description 02/15/2014 Refill Nephrology Shiva Kahn RN Refill Request 2nd Floor, Clinic 2A [facility] [place] [address] [facility] [place], [place] [id number] [place] [address] [place] [phone] Social History Tobacco Use Types Packs/Day [...] on filedocumented in this encounter Care Teams Experimental Mechanic Relationship Specialty Start Date End Date Momo Forbes PCP - General Family Practice 01/02/14 [facility] [address] [place] [address] Ingrid Santana RN Registered Nurse Transplant 02/10/12 documented as of this encounter
--- OUTSIDE RECORDS SUMMARY | 2022-06-28 13:23 | XMS_ITS | Encounter Summary ---
:1950 Author Organization [place] Address [address] [place] [address]. [place] [address] Care Team Providers Name Role Phone Ingrid Santana RN Unavailable Unavailable Momo Forbes Primary Care Provider Reason for Visit Reason Onset Date Comments Refill Request 02/11/2014 Encounter Details Date Type Department Care Team Description 02/11/2014 Refill Nephrology Isa Ly RN Refill Request 2nd Floor, Clinic [address]A [place] [phone] Social History Tobacco Use Types Packs/Day [...] transplant documented in this encounter Care Teams Coffee Weigher Relationship Specialty Start Date End Date Momo Forbes PCP - General Family Practice 01/02/14 [facility] [address] [place] [address] Ingrid Santana RN Registered Nurse Transplant 02/10/12 documented as of this encounter
--- OUTSIDE RECORDS SUMMARY | 2022-06-28 13:23 | XMS_ITS | Encounter Summary ---
:1950 Author Organization [place] Address [address] [place] [address] Care Team Providers Name Role Phone Ingrid Santana RN Unavailable Unavailable Momo Forbes Primary Care Provider Reason for Referral CV Cardio consult - Closed Specialty Diagnoses / Procedures Referred By Contact Refer red To Contact Diagnoses Atrial fibrillation (H) Kaitlynn Leon MD [facility] [address] [place] [address] Fax: Referral ID Status Reason Start Date Expiration Date Visits Requ ested Visits Authorized [id number] Closed 02/12/2014 08/11/2014 1 1 Reason for Visit Reason Comments RECHECK Encounter Details Date Type Department Care Team Description 02/12/2014 Office Visit Specialty Infusion Kaitlynn Leon, S/P kidn ey transplant (Primary Dx); and Procedure Center Atrial fibrillation (H); [place] [facility] Hypopho sphatemia; [facility] Nausea; 2nd Floor [address] Immunosuppression (H) [address] [facility] [address] [place], [place] [phone] (Work) [phone] Social History Tobacco Use Types Packs/Day Years [...] Dear Diego Guthrie Thank you for choosing [facility] Specialty Infusion and Procedure Center (NEW [...] Tuesday morning, try to reach them at [phone]. We look forward in seeing you on your next appointment here at [facility]. Please don???t hesitate to callus at [phone] to reschedule any of your appointments or to speak with one of the [facility] registered nurses. It was a pleasure taking care of you today. Sincerely, Gladis Olvera, BOGDAN [facility] [place] [address] documented in this encounter Progress Notes Kaitlynn [...] Procedure: TRANSPLANT KIDNEY RECIPIENT DONOR; Surgeon: Migel Merchnat MD; Location: [facility] OR Family Hx: Family History Problem Relation Age of Onset ??? C.A.D. Father ??? Alzheimers Mother Personal Hx: History Social History ??? Marital Status: Single Spouse Name: N/A Number of Children: N/A ??? 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
--- OUTSIDE RECORDS SUMMARY | 2022-06-28 13:23 | XMS_ITS | Encounter Summary ---
:1950 Author Organization [place] Address [facility] [place] [address] Care Team Providers Name Role Phone Ingrid Santana RN Unavailable Unavailable Momo Forbes Primary Care Provider Encounter Details Date Type Department Care Team Description 02/15/2014 Orders Only Nephrology Shiva Kahn RN Kidney replaced by transplant; 2nd Floor, Clinic 2A [facility] S/P kidney transplant Tommy [address] [phone] Social History Tobacco Use Types Packs/Day Years [...] documented in this encounter Care Teams Corporate Training Manager Relationship Specialty Start Date End Date Momo Forbes PCP - General Family Practice 01/02/14 [facility] [address] [place] [address] Ingrid Santana RN Registered Nurse Transplant 02/10/12 documented as of this encounter
--- OUTSIDE RECORDS SUMMARY | 2022-06-28 13:24 | XMS_ITS | Encounter Summary ---
:1950 Author Organization [facility] Address [address] [place] [address] Care Team Providers Name Role Phone Ingrid Santana RN Unavailable Unavailable Momo Forbes Primary Care Provider Reason for Referral Home Health Therapies & Aides Specialty Diagnoses / Procedures Referred By Contact Refer red To Contact Adeline Diaz MD [place] [phone] Referral ID Status Reason Start Date Expiration Date Visits Requ ested Visits Authorized ome Health Therapies & Aides Specialty Diagnoses / Procedures Referred By Contact Gary phelps To Contact Adeline Diaz MD [address] [address] 5 Referral ID Status Reason Start Date Expiration Date Visits Requ ested Visits Authorized ome Health Therapies & Aides Specialty Diagnoses / Procedures Referred By Contact Gary phelps To Contact [facility] [address] [place], [place] [phone] Referral ID Status Reason Start Date Expiration Date Visits Requ ested Visits Authorized Reason for Visit Auth/Cert - Closed Specialty Diagnoses / Procedures Referred By Contact Gary phelps To Contact Med Surg Diagnoses end stage renal disease dialysis End stage renal failure on dialysis Renal Failure Uu U7a Procedures TRANSPLANT KIDNEY RECIPIENT DONOR [address] [place] [address] Phone: Referral ID Status Reason Start Date Expiration Date Visits Requ ested Visits Authorized [id number] Closed 02/04/2014 08/03/2014 1 1 Encounter Details Date Type Department Care Team Description 02/02/2014 [facility] [address] [place] [id number] S/P kidney transplant (Primary Dx); 02/08/2014 [facility] [address] [place] Mathew Rust MD [address] [place] [address] Atrial fibrillation (H) Bank [address] [place] [address] Social History Tobacco Use Types [...] Physician Discharge Summary Patient ID: Diego Guthrie [id number] 63 year old 1950 Admit date: 02/02/2014 [...] Take 1 tablet by mouth daily. B ddhjape-C-vlwuq acid (NEPHROCAPS) 1 MG capsule Take 1 [...] in the [facility] ([facility]) which is located on the second floor of the [facility] next to the Transplant Clinic. Your [...] of these appointments you will meetwith a cook house laborer and meet your compensation coordinator. Your nurse will also be in communication with your surgeon and cook house laborer as needed. The direct number to the [facility] is [phone]. In the [facility] [...] This will be located in [facility] transplant surgery clinic on the second floor.Your transplant surgeon is: Dr. Merchant. You have a ureteral stent in place which needs to be removed in 4-6 weeks. If a assistant product manager does not contact you for this, please contact your compensation coordinator. If you have modesta in place, they will be removed in 3 weeks after operation. Notify your coordinator if you have pain over your kidney, fever greater than 101.5F, or decreased urine output. Notify your coordinator immediately if you are ever unable to take your immunosuppressive medications for any reason. Dive Superintendent [phone] Diet recommendations post-transplant: Heart healthy dietary habits trackwalker (low saturated/trans fat, low sodium). High protein [...] >2. He can be seen by any installation superintendent in the outpatient setting for coordination. Continue metoprolol 25 po bid until he is r e-evaluated. We did attempt inpatient REFUGIO guided cardioversion, but the patient developed significant bleeding while on heparin. José Miguel Alvarez M.D. Drafter Civil Jsoeph Quintana MD - 02/08/2014 12:35 PM CDT [...] monitor. Seen and discussed with Dr. Quintana. iSna Robison MD Nephrology Fellow [phone] Attestation: This patient has been seen and [...] Ramires RN - 02/07/2014 2:25 PM CDT Drywall Boardhanger D: Diego Guthrie 63 year old male POD #5 s/p DDKT for ESRD 2/[address] Diaz note today. Per Dr Diaz, pt will most likely be ready for d/c to home tomorrow and will return to [facility] for 5 days at 0700. Pt will [...] him. Pt does not know where the [facility] or transplant clinic is, I told him and he replied I will find it. Pt does not care which [facility] agency will follow him--There are only 2 to choose from, so I chose the [facility] [phone]/ --I called and left a message with Estrella Fletcher and I fax'd his records tothem--pt will need start of care approx Thursday 02/15. Pt is new on warfarin and I called his PCP's office and they have INR nurses Tuesday-Tuesday their fax # is [phone] (when N visits are completed --pt will call main clinic # to schedule INR draws). 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 I verified his address and phone #(is his cell) on the facesheet. Pt has not met his OP child care team lead: Leandro Kahn, yet--I sent Leandro an in basket message today-with plan. A: possible d/c to home Tuesday P: see above-will follow and will call [facility] to confirm they can accept him. Joseph [...] Dr. Quintana. Sina Robison MD Nephrology Fellow [phone] Attestation: This patient has been seen and [...] assistance Medical Decision Making: Medium Subsequent visit 86126 (moderate level decision making) PATO/Fellow/Resident Provider: Adeline [...] Rodriguez MD - 02/06/2014 4:25 PM CDT [facility] Cardiology Progress Note I have [...] Dr. Quintana. Sina Robison MD Nephrology Fellow [phone] Attestation: This patient has been seen and [...] Decision Making:medium PATO/Fellow/Resident Provider: ANTONIO Smith Faculty: [facility] Transplant History: Admitted 02/02/2014 for kidney transplant. [...] Dr. Quintana. Sina Robison MD Nephrology Fellow [phone] Attestation: This patient has been seen and [...] Kahn RN - 02/05/2014 4:47 PM CDT GLOVE PARTS INSPECTOR NOTE I met with the patient and his yesterday at [facility] PCU-6B (telemetry unit) to discuss transition from inpatient to outpatient care following kidney translantation. 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 Joseph Rodriguez MD - 02/05/2014 11:16 AM CDT [facility] Cardiology Progress Note I have [...] plan for REFUGIO cardioversion tomorrow, NPO at [place] (orders placed) -- continue heparin and initiate [...] 02/02/2014. Pt lives alone in [facility] [place] though reports that his girlfriend in in the process of moving in with him. Pt girlfriend, Tete, will be present when pt returns home but she works time study technologist. Pt was on dialysis for 2 1/2 years prior to transplant. Pt works independently but reports that he currently has no income coming in. Pt has primary insurancethrough Medicare and Secondary insurance through [employer]. Pt has no co-pays for his immunosuppressants and a high out of pocket cost for DANILO Salcido to look into grants for pt for [facility]. I: Met with pt to introduce this abstract writer and explain sw role and services available while inpatient in the hospital. Asked if pt had any questions or concerns and completed an assessment of psychosocialneeds post transplant. Provided education about expectations and requirements post discharge like fol low up in the [facility]. Pt is unsure yet if he will [...] needs arise prior to discharge. CECY Kearns, CONE TRUCKER Indu Calixto MD - 02/05/2014 1:50 AM [...] Type of Visit Initial PT Evaluation Instrument Operator Instrument Operator Present no Language Swiss Living Environment (R) Lives With alone Living Arrangements ([facility]) Home Accessibility no concerns Number [...] up when pt is available. CECY Kearns, [facility] [phone] phone [phone] pager Joseph Quintana MD - 02/04/2014 11:51 [...] Dr. Quintana. Sina Robison MD Nephrology Fellow [phone] Attestation: This patient has been seen and [...] for this basename: PTHI, in the last 83152 hours IRON STUDIES No results found for this basename: IRON, FEB, IRONSAT, THEE, in the last 22141 hours Imaging: All imaging studies reviewed by [...] or equal to 12.0 mlU/mL. Adeline Diaz [phone] Attestation: The patient has been seen and [...] donor kidney transplant, with stent on 02/02/14. GRADUATE STUDIES DEAN donor. Graft function:uncertain, Cr slightly up. Slow [...] . Medical Decision Making: Medium Subsequent visit 95443 (moderate level decision making) PATO/Fellow/Resident Provider: Caitlin [...] note and orders. Migel Merchant MD, PhD finishing lab technician Abdominal Organ Transplantation Carmelita Rosario, RN - 02/03/2014 9:38 AM CDT Patient removed from the UNOS waitlist after donor kidney transplant. UNOS ID is [id number]. Rafaela Cardona - 02/03/2014 9:17 AM CDT [...] followed general diet. Patient reports good appetite/intake FOOD AND BEVERAGE ASSOCIATE, no nutrition issues/concnerns. CURRENT NUTRITION ORDERS - [...] DDKT ASSESSED NUTRITION NEEDS: Estimated Energy Needs: 7920-4574+ kcals (25-30+ Kcal/Kg) Justification: maintenance post-transplant Estimated [...] (6- 8 weeks). Rec follow heart-healthy diet trackwalker. Implementation Nutrition education: Provided instruction on post-transplant diet with discussion regarding protein sources and high protein needs in acute post-tx phase. Reviewed recommendations to follow low fat/lowsodium diet trackwalker and discussed heart healthy diet tips. Discussed [...] adjustment. Rafaela Cardona RD, LD Weekend Coverage [phone] Carla, Jose Galarza MD - 02/03/2014 4:57 [...] Doing well postoperatively. Pain: Controlled by Dilaudid SADDLE AND HARNESS MAKER Diet: NPO tonight Volume Status: Borderline low UOP, continue MIVF, 0.9 % NS 500 cc bolus given for low UOP, CVP not accurate, systolic in 100-110 Recheck hemoglobin and potassium normal. Rest of the plan per primary team. Will continue to follow. Jose Aguirre MD PGY-1.................02/03/2014 Surgery Cross Cover Pager:[phone] documented in this encounter H&P Notes Caitlin Owens MD - 02/02/2014 3:43 PM CDT General Surgery History and Physical Consult Reason: Patient presents for a donor kidney transplant HPI: Diego Gtuhrie is a 63M with a PMH significant [...] 1 tablet by mouth daily. ??? B khmkcbn-O-rtncg acid (NEPHROCAPS) 1 MG capsule Take 1 [...] Transplant Fellow, Caitlin Morales MD Surgery Cross-Cover Pager:[phone] Addendum: Donor 59 yo F GRADUATE STUDIES DEAN, CVA, h/o HTN, CMV+, EBV+. Kidney bx [...] note and orders. Migel Merchant MD, PhD finishing lab technician Abdominal Organ Transplantation documented in this encounter Consult Notes Joseph Rodriguez MD - 02/04/2014 11:03 AM CDTAssociated Order(s): CARDIOLOGY IP CONSULT [facility] CARDIOLOGY CONSULT SERVICE INITIAL CONSULT NOTE [...] 1 tablet by mouth daily. ??? B akhobca-X-wqggw acid (NEPHROCAPS) 1 MG capsule Take 1 [...] basename: TSH, in the last 168 hours FsxS3sAx components found with this basename: HGBA1C, TroponinNo [...] assessment and plan. José Miguel Alvarez MD Drafter Civil Pager: [phone] February 04, 2014 Kaitlynn Leon MD - 02/03/2014 9:30 AM CDT Nephrology Initial Consult February 03, 2014 Diego Guthrie Date of : 1950 Date of Admission:02/02/2014 Primary care provider: Momo Forbes Requesting physician: Migel Merchant MD ASSESSMENT AND RECOMMENDATIONS: 1. DDKT - GRADUATE STUDIES DEAN -59 yo women; slow graft function-no immediate need for dialysis , but may require tomorrow if UO does not garbage pick up worker. We will monitor Induction [...] h/o type 2 Dm, who received DDKT (GRADUATE STUDIES DEAN) on 02/02/2014 donor kidney had severe atherosclerotic [...] ??? Cataract iol, rt/lt both eyes MEDICATIONS: FOOD AND BEVERAGE ASSOCIATE Meds Prior to Admission medications Medication Sig Last Dose Taking? Auth Provider Calcium Carbonate-Vitamin D (CALCIUM + D PO) Take by mouth daily. Reported, Patient lisinopril (PRINIVIL,ZESTRIL) 40 MG tablet Take 40 mg by mouth 2 times daily. Reported, Patient METOPROLOL SUCCINATE PO Take by mouth daily. Reported, Patient aspirin 81 MG tablet Take 1 tablet by mouth daily. Reported, Patient B epcdmhj-F-mnlce acid (NEPHROCAPS) 1 MG capsule Take 1 [...] Intravenous Central line Once ??? HYDROmorphone Intravenous SADDLE AND HARNESS MAKER Infusion Meds ??? IV fluid REPLACEMENT ONLY [...] Date 02/03/14 0700 - 02/04/14 0659 Shift [id number] 3980-0828 2368-7499 24 Hour Total I N T A [...] for this basename: PTHI, in the last 23355 hours IRON STUDIES No results found for this basename: IRON, FEB, IRONSAT, THEE, in the last 66791 hours Deysi Alicea MD Jarad Cullen MD [...] tablet by mouth daily. Reported, Patient B kdxdiww-A-epult acid (NEPHROCAPS) 1 MG capsule Take 1 [...] and plan. Alvin Diego Cardiovascular Disease Fellow [phone] Patient seen and examined by me with [...] Cullen MD, PhD Jarad Cullen MD, PhD [phone] documented in this encounter Nursing Notes Gretta [...] Individualization/Patient-Specific Goal (Adult,OB,Behavioral The patient and/or their technology sales representative will achieve their patient-specific goals [...] Card updated. Report called to Saima in [facility]. Left facility accompanied by s.o at 1600. Plan of Care - Amanda Hernandez RN - 02/08/2014 2:13 PM CDT Problem: IP GENERAL POC-ADULT,OB,BEHAVIORAL FVCPM Goal: Individualization/Patient-Specific Goal (Adult,OB,Behavioral The patient and/or their technology sales representative will achieve their patient-specific goals [...] Individualization/Patient-Specific Goal (Adult,OB,Behavioral The patient and/or their technology sales representative will achieve their patient-specific goals [...] Individualization/Patient-Specific Goal (Adult,OB,Behavioral The patient and/or their technology sales representative will achieve their patient-specific goals [...] Diet recommendations post-transplant: Heart healthy dietary habits senior living (low saturated/trans fat, low sodium). High protein diet x 8 weeks. Practice food safety precautions - no fish/seafood x 3 weeks. Inez Luevano MS, RD, LD Pager [phone] Pharmacy-Immunosuppression Monitoring - Em Vasquez, [facility] - 02/07/2014 9:06 AM CDT [...] will continue to follow. Em Vasquez, Pharm.D., [facility] Pager [phone] Plan of Care - Annmarie Colby RN - 02/07/2014 5:11 AM CDT Problem: IP GENERAL POC-ADULT,OB,BEHAVIORAL FVCPM Goal: Individualization/Patient-Specific Goal (Adult,OB,Behavioral The patient and/or their technology sales representative will achieve their patient-specific goals [...] Individualization/Patient-Specific Goal (Adult,OB,Behavioral The patient and/or their technology sales representative will achieve their patient-specific goals [...] increased fluid intake, urine color is becoming call center support consultant( tea color/bloody- >dark sy/tea color). Incisional pain [...] Physical Therapy Goals The patient and/or their technology sales representative will achieve their patient-specific goals [...] balance deficits. Plan of Care - Yesenia oRdriguez, PT - 02/06/2014 10:09 AM CDT Problem: General Rehab Plan of Care Goal: Physical Therapy Goals The patient and/or their technology sales representative will achieve their patient-specific goals [...] Individualization/Patient-Specific Goal (Adult,OB,Behavioral The patient and/or their technology sales representative will achieve their patient-specific goals [...] Individualization/Patient-Specific Goal (Adult,OB,Behavioral The patient and/or their technology sales representative will achieve their patient-specific goals [...] Physical Therapy Goals The patient and/or their technology sales representative will achieve their patient-specific goals [...] at this time. Pharmacy - Cayetano Olivera [facility] - 02/05/2014 12:26 PM CDT Visited 02/05/2014 in hospital room prior to discharge to review medications, review discharge process and review specialty pharmacy program. Med Review: Reviewed patient's medications and medical conditions. Patient would like to use [facility] to manage all medications. Medcard: [...] Specialty Pharmacy review: Discussed the benefits of [facility] and Diego has enrolled. Also gave him supplies (blood pressure cuff, thermometer, and pill box) Other concerns: No other concerns at this time. No further questions for this pharmacist. Inez Cox, Student Pharmacist Bus Driver/Monitor [facility] [address] [place] [phone] Cayetano Olivera, Pharmacist [facility] [phone] Pharmacy-Anticoagulation Service - Teresa Wright RP - [...] Individualization/Patient-Specific Goal (Adult,OB,Behavioral The patient and/or their technology sales representative will achieve their patient-specific goals [...] melonie hard time making full sentences. When abstract writer came on shift at 8pm patient [...] Individualization/Patient-Specific Goal (Adult,OB,Behavioral The patient and/or their technology sales representative will achieve their patient-specific goals [...] Physical Therapy Goals The patient and/or their technology sales representative will achieve their patient-specific goals [...] by friend. Pt transferred to chair, VSS, youth nutritional monitor on, oriented to room. Pharmacy-Admission Medication History - Teresa Wright [facility] - 02/04/2014 11:54 AM CDT Admission medication history interview status for the 02/02/2014 admission is complete. See [facility] admission navigator for allergy information, prior to admission medications and immunization status. Medication history interview sources (including written lists, pill bottles, clinic record):Patient Medication history source reliability:Good Primary pharmacy:[facility] phone number: [phone] Changes made to FOOD AND BEVERAGE ASSOCIATE medication list (reason) Added: Vitamin D 1,000 [...] at Unknown time Yes Reported, Patient B iqqhfxk-Z-pdpnt acid (NEPHROCAPS) 1 MG capsule Take 1 [...] Individualization/Patient-Specific Goal (Adult,OB,Behavioral The patient and/or their technology sales representative will achieve their patient-specific goals [...] 45 minutes and remains in A-fib via director of cardiac cath lab. Repeat EKG around 1000 showed continued Afibl. [...] Physical Therapy Goals The patient and/or their technology sales representative will achieve their patient-specific goals related to the plan of care. The patient-specific goals include: PT 7A: HOLD for AM per RN - pt with a-fib this morning. Plan of Care - Alisson Diane RN - 02/04/2014 6:45 AM CDT Problem: IP GENERAL POC-ADULT,OB,BEHAVIORAL FVCPM Goal: Individualization/Patient-Specific Goal (Adult,OB,Behavioral The patient and/or their technology sales representative will achieve their patient-specific goals [...] Individualization/Patient-Specific Goal (Adult,OB,Behavioral The patient and/or their technology sales representative will achieve their patient-specific goals [...] to yellow. Pharmacy-Transplant Note - Davina Schuster [facility] - 02/03/2014 4:28 PM CDT [...] Individualization/Patient-Specific Goal (Adult,OB,Behavioral The patient and/or their technology sales representative will achieve their patient-specific goals related to the plan of care. The patient-specific goals include: 1. Pt will remain hemodynamically stable 2. Pt will have adequate urine output 3. Pt will be free of falls. RD Patient will verbalize understanding of 3 important aspects of post-transplant diet guidelines. PO intake >50% meals TID once diet adv. Report taken from [facility] on 6B; patient transferred to from 6B via wheelchair around 1500. Patientsettled into room, oriented to floor/room and call light. VS taken. Orders released. Continue ordersas written and notify MD with any concerns. Plan of Care - Sofie Christianson RN - 02/03/2014 2:59 PM CDT Problem: IP GENERAL POC-ADULT,OB,BEHAVIORAL FVCPM Goal: Plan of Care Review (Adult,OB,Behavioral) The patient and/or their technology sales representative will communicate an understanding of [...] algorithm 2, 1 unit now. Pt still vkviejrpj1T NC to maintain sats above 90 % [...] Individualization/Patient-Specific Goal (Adult,OB,Behavioral The patient and/or their technology sales representative will achieve their patient-specific goals [...] Intermittent sharp R lower abd pain. Dilaudid SADDLE AND HARNESS MAKER encouraged, increased to 0.2/10/1.2. R lower abd [...] 0200 made 20cc/hr, at 0300 made 30cc/hr. [place]/red tinged urine. MIVF @ 125/hr. VSS. HR 70s, BPs 100s-120s/60s. No new orders at this time. Will continue to monitor. Plan of Care - Tasia Andrade RN - 02/03/2014 12:00 AM CDT Pt arrived to 6B from PACU, s/p DDKT. A&O x3-4. VSS. [place]/red urine output. Small amt drainage on abd [...] patient received anorgan offer for a Donor GRADUATE STUDIES DEAN (expanded criteria donor) kidney transplant. After discussing [...] The UNOS number of the donor is [id number]. The crossmatch was done prospectively; and the [...] reconstruction. FACULTY SURGEON: Migel Merchant M.D., Ph.D. FELLOW/MILL HOUSE SUPERVISOR SURGEON: Caitlin Owens MD fellow ANESTHESIA: None VERIFICATION: Prior to incision, I verified the donor ABO and recipient ABO. After the donor organ arrived to the operating room and prior to anastamosis, I visually verified that the donor identification, blood type, and other vital data were compatible with the recipient. FINDINGS: Donor type: GRADUATE STUDIES DEAN (expanded criteria donor) Organ: kidney Graft Injury: [...] Individualization/Patient-Specific Goal (Adult,OB,Behavioral The patient and/or their technology sales representative will achieve their patient-specific goals [...] Individualization/Patient-Specific Goal (Adult,OB,Behavioral The patient and/or their technology sales representative will achieve their patient-specific goals [...] LARES - BEAKER POCT Performing Organization Address [facility] Phon e Number FV POINT OF CARE TEST, GLUCOSE POINT OF CARE TEST, GLUCOSE (ABNORMAL) Glucose by meter (02/08/2014 8:05 AM CDT) P athologist Signature Glucose 157 (H) 60 - 99 POINT OF CARE mg/dL TEST, GLUCOSE Specimen Anatomical Collection Method Collection Time Receive d Time (Source) Location / / Volume Laterality 02/08/2014 8:05 AM 4 8:10 CDT AM CDT Mgiel LARES - BEAKER POCT Performing Organization Address [facility] Phon e Number FV POINT OF CARE TEST, GLUCOSE POINT OF CARE TEST, GLUCOSE Tacrolimus level (02/08/2014 6:42 AM CDT) [facility] gist Method Time Signature Tacrolimus Not Provided [facility] Last Dose [facility] Tacrolimus 10.0 5.0 - [facility] Level 15.0 ug/L [facility] Comment: Tacrolimus Reference Range Kidney [...] - BLOOD ORDERABLES Performing Organization Address City/[facility] Code Phon e Number [facility] [address] [place] [address] [facility] (ABNORMAL) INR (02/08/2014 6:42 AM CDT) P athologist Signature INR 1.28 (H) 0.86 - 1.14 [facility] Specimen Anatomical Collection Method Collection Time Receive d Time (Source) Location / / Volume Laterality Blood specimen 02/08/2014 6:42 AM 014 6:43 (specimen) CDT AM CDT Omaira Chavez PA-C LAB - BLOOD ORDERABLES Performing Organization Address City/State/ZIP Code Phon e Number [facility] [address] LABS (ABNORMAL) Basic metabolic panel (02/08/2014 6:42 AM CDT) Patholo gist Method Time Signature Sodium 144 133 - 144 [facility] mmol/L [facility] Potassium 3.9 3.4 - 5.3 [facility] mmol/L [facility] LABS Chloride 110 (H) 94 - 109 [facility] mmol/L [facility] LABS Carbon Dioxide 25 20 - 32 [facility] mmol/L [facility] LABS Anion Gap 8 6 - 17 [facility] mmol/L [facility] LABS Glucose 144 (H) 60 - 99 [facility] mg/dL [facility] LABS Urea Nitrogen 66 (H) 7 - 30 [facility] mg/dL [facility] LABS Creatinine 2.38 (H) 0.66 - [facility] 1.25 mg/dL [facility] LABS GFR Estimate 28 (L) >60 [facility] mL/min/1.7 [place] m2 CAMPUS LABS GFR Estimate If 34 (L) >60 [facility] Black mL/min/1.7 [place] [address] CAMPUS LABS Calcium 9.4 8.5 - 10.4 [facility] mg/dL [facility] LABS Specimen Anatomical Collection Method Collection Time Receive d Time (Source) Location / / Volume Laterality Blood specimen 02/08/2014 6:42 AM 014 6:43 (specimen) CDT AM CDT Omaira Chavez PA-C LAB - BLOOD ORDERABLES Performing Organization Address City/State/ZIP Code Phon e Number [facility] [address] [place], [place] [id number] [place] [address] LABS Phosphorus (02/08/2014 6:42 AM CDT) P [...] Phon e Number [facility] [address] LABS Magnesium (02/08/2014 6:42 AM CDT) P athologist Signature Magnesium 2.2 1.6 - 2.3 [facility] mg/dL CAMPUS LABS Specimen Anatomical Collection Method Collection Time Receive d Time (Source) Location / / Volume Laterality Blood specimen 02/08/2014 6:42 AM 014 6:43 (specimen) CDT AM CDT Omaira Chavez PA-C LAB - BLOOD ORDERABLES Performing Organization Address City/State/ZIP Code Phon e Number [facility] [address] [place] [address] [facility] LABS (ABNORMAL) CBC with platelets differential (02/08/2014 6:42 AM CDT) Patholo gist Method Time Signature WBC 4.8 4.0 - [facility] 11.0 [place] 10e9/L [place] LABS RBC Count 2.56 (L) 4.4 - 5.9 [facility] 10e12/L [facility] LABS Hemoglobin 7.8 (L) 13.3 - [facility] 17.7 g/dL [facility] LABS Hematocrit 23.5 (L) 40.0 - [facility] 53.0 % [facility] LABS MCV 92 78 - 100 [facility] fl [facility] LABS MCH 30.5 26.5 - [facility] 33.0 pg [facility] LABS MCHC 33.2 31.5 - [facility] 36.5 g/dL [facility] LABS RDW 14.5 10.0 - [facility] 15.0 % [facility] LABS Platelet Count 70 (L) 150 - 450 [facility] 10e9/L [facility] LABS Diff Method Automated [facility] Method [facility] LABS % Neutrophils 86.3 % [facility] LABS % Lymphocytes 3.1 % [facility] LABS % Monocytes 9.4 % [facility] LABS % Eosinophils 1.0 % [facility] LABS % Basophils 0.0 % [facility] LABS % Immature 0.2 % [facility] Granulocytes [facility] LABS Absolute 4.1 1.6 - 8.3 [facility] Neutrophil 10e9/L [facility] LABS Absolute 0.2 (L) 0.8 - 5.3 [facility] Lymphocytes 10e9/L [facility] LABS Absolute 0.5 0.0 - 1.3 [facility] Monocytes 10e9/L [facility] LABS Absolute 0.1 0.0 - 0.7 [facility] Eosinophils 10e9/L [facility] LABS Absolute 0.0 0.0 - 0.2 [facility] Basophils 10e9/L [place] [facility] LABS Abs Immature 0.0 0 - 0.4 [facility] Granulocytes 10e9/L [facility] LABS Specimen Anatomical Collection Method Collection Time Receive d Time (Source) Location / / Volume Laterality Blood specimen 02/08/2014 6:42 AM 014 6:43 (specimen) CDT AM CDT Omaira Chavez PA-C LAB - BLOOD ORDERABLES Performing Organization Address City/State/ZIP Code Phon e Number [address] [address] [facility] LABS (ABNORMAL) Glucose by meter (02/07/2014 [...] LARES - ROBERT POCT Performing Organization Address City/[facility]/ZIP Code Phon e Number [facility] POINT [...] Signature INR 1.25 (H) 0.86 - 1.14 [facility] LABS Specimen Anatomical Collection Method Collection Time Receive d Time (Source) Location / / Volume Laterality Blood specimen 02/07/2014 4:23 AM 014 4:24 (specimen) CDT AM CDT Omaira Chavez PA-C LAB - BLOOD ORDERABLES Performing Organization Address City/State/ZIP Code Phon e Number [address] LABS (ABNORMAL) Basic metabolic panel (02/07/2014 4:23 AM CDT) Patholo gist Method Time Signature Sodium 143 133 - 144 [facility] mmol/L [facility] LABS Potassium 4.1 3.4 - 5.3 [facility] mmol/L [facility] LABS Chloride 109 94 - 109 [facility] mmol/L [facility] LABS Carbon Dioxide 24 20 - 32 [facility] mmol/L [facility] LABS Anion Gap 10 6 - 17 [facility] mmol/L [facility] LABS Glucose 185 (H) 60 - 99 [facility] mg/dL [facility] LABS Urea Nitrogen 77 (H) 7 - 30 [facility] mg/dL [facility] LABS Creatinine 3.02 (H) 0.66 - [facility] 1.25 mg/dL [facility] LABS GFR Estimate 21 (L) >60 [facility] mL/min/1.7 [place] m2 CAMPUS LABS GFR Estimate If 26 (L) >60 [facility] Black mL/min/1.7 [place] [address] CAMPUS LABS Calcium 9.3 8.5 - 10.4 [facility] mg/dL [facility] LABS Specimen Anatomical Collection Method Collection Time Receive d Time (Source) Location / / Volume Laterality Blood specimen 02/07/2014 4:23 AM 014 4:24 (specimen) CDT AM CDT Omaira Chavez PA-C LAB - BLOOD ORDERABLES Performing Organization Address City/[facility]/ZIP Code Phon e Number [address] LABS Phosphorus (02/07/2014 4:23 AM CDT) [...] Phon e Number [facility] [address] [facility] LABS Magnesium (02/07/2014 4:23 AM CDT) P athologist Signature Magnesium 2.1 1.6 - 2.3 [facility] mg/dL [place] LABS Specimen Anatomical Collection Method Collection Time Receive d Time (Source) Location / / Volume Laterality Blood specimen 02/07/2014 4:23 AM 014 4:24 (specimen) CDT AM CDT Omaira Chavez PA-C LAB - BLOOD ORDERABLES Performing Organization Address City/State/ZIP Code Phon e Number [facility] [address] [place] [address] [facility] LABS (ABNORMAL) CBC with platelets differential (02/07/2014 4:23 AM CDT) Patholo gist Method Time Signature WBC 2.7 (L) 4.0 - [facility] 11.0 [facility] 10e9/L [place] LABS RBC Count 2.80 (L) 4.4 - 5.9 [facility] 10e12/L [facility] LABS Hemoglobin 8.5 (L) 13.3 - [facility] 17.7 g/dL [facility] LABS Hematocrit 25.8 (L) 40.0 - [facility] 53.0 % [facility] LABS MCV 92 78 - 100 [facility] fl [facility] LABS MCH 30.4 26.5 - [facility] 33.0 pg [facility] LABS MCHC 32.9 31.5 - [facility] 36.5 g/dL [facility] LABS RDW 14.5 10.0 - [facility] 15.0 % [facility] LABS Platelet Count 77 (L) 150 - 450 [facility] 10e9/L [facility] LABS Diff Method Automated [facility] Method [facility] LABS % Neutrophils 87.5 % [facility] LABS % Lymphocytes 3.8 % [facility] LABS % Monocytes 8.7 % [facility] LABS % Eosinophils 0.0 % [facility] LABS % Basophils 0.0 % [facility] LABS % Immature 0.0 % [facility] Granulocytes [facility] LABS Absolute 2.3 1.6 - 8.3 [facility] Neutrophil 10e9/L [facility] LABS Absolute 0.1 (L) 0.8 - 5.3 [facility] Lymphocytes 10e9/L [facility] LABS Absolute 0.2 0.0 - 1.3 [facility] Monocytes 10e9/L [facility] LABS Absolute 0.0 0.0 - 0.7 [facility] Eosinophils 10e9/L [facility] LABS Absolute 0.0 0.0 - 0.2 [facility] Basophils 10e9/L [place] [facility] LABS Abs Immature 0.0 0 - 0.4 [facility] Granulocytes 10e9/L [facility] LABS Specimen Anatomical Collection Method Collection Time Receive d Time (Source) Location / / Volume Laterality Blood specimen 02/07/2014 4:23 AM 014 4:24 (specimen) CDT AM CDT Omaira Chavez PA-C LAB - BLOOD ORDERABLES Performing Organization Address City/[facility]/ZIP Code Phon e Number [address] LABS (ABNORMAL) Hemoglobin A1c (02/07/2014 4:23 AM CDT) Analysis Performed At Patho logist Time Signature Hemoglobin A1C 6.1 (H) 4.3 - 6.0 [facility] LABS Specimen Anatomical Collection Method Collection Time Receive d Time (Source) Location / / Volume Laterality Blood specimen 02/07/2014 4:23 AM 014 4:24 (specimen) CDT AM CDT Omaira Chavez PA-C LAB - BLOOD ORDERABLES Performing Organization Address City/State/ZIP Code Phon e Number [facility] [address] LABS (ABNORMAL) Glucose by meter [...] BEAJ POCT Performing Organization Address [facility] Phon e Number [facility] POINT OF CARE TEST, GLUCOSE POINT OF CARE TEST, GLUCOSE (ABNORMAL) Hemoglobin (02/06/2014 4:59 PM CDT) P athologist Signature Hemoglobin 8.8 (L) 13.3 - 17.7 [facility] g/dL [place] LABS Specimen Anatomical Collection Method Collection Time Receive d Time (Source) Location / / Volume Laterality Blood specimen 02/06/2014 4:59 PM 014 5:12 (specimen) CDT PM CDT Omaira Chavez PA-C LAB - BLOOD ORDERABLES Performing Organization Address City/[facility]/ZIP Code Phon e Number [address] [address] [facility] LABS (ABNORMAL) Glucose by meter (02/06/2014 12:01 PM CDT) P athologist Signature Glucose 181 (H) 60 - 99 POINT OF CARE mg/dL TEST, GLUCOSE Specimen Anatomical Collection Method Collection Time Receive d Time (Source) Location / / Volume Laterality 02/06/2014 12:01 02/06/2014 PM CDT 12:05 PM CDT Migel Merchant MD LAB - BEAKER POCT Performing Organization Address City/[facility]/ZIP Code Phon e Number [facility] POINT OF CARE TEST, GLUCOSE POINT OF CARE TEST, GLUCOSE (ABNORMAL) Partial thromboplastin time (02/06/2014 5:57 AM CDT) athologist Signature PTT 154 (HH) 22 - 37 sec [facility] LABS Comment: Critical Value called to and read back Whitney Poon RN AT 0642. PW Specimen Anatomical Collection Method Collection Time Receive d Time (Source) Location / / Volume Laterality 02/06/2014 5:57 AM 4 6:03 CDT AM CDT Adeline Diaz MD LAB - BLOOD ORDERABLES Performing Organization Address City/[facility]/ZIP Code Phon e Number [facility] [address] LABS Heparin Xa (10a) Level (02/06/2014 5:57 AM CDT) athologist Signature Heparin 10A 0.92 IU/mL [facility] LABS Comment: Therapeutic Range: ?? UFH: [...] Phon e Number [facility] [address] LABS (ABNORMAL) INR (02/06/2014 5:57 AM CDT) athologist Signature INR 1.32 (H) 0.86 - 1.14 [facility] Specimen Anatomical Collection Method Collection Time Receive d Time (Source) Location / / Volume Laterality Blood specimen 02/06/2014 5:57 AM 014 6:03 (specimen) CDT AM CDT Omaira Chavez PA-C LAB - BLOOD ORDERABLES Performing Organization Address City/[facility]/ZIP Code Phon e Number [facility] [address] LABS (ABNORMAL) Basic metabolic panel (02/06/2014 5:57 AM CDT) [facility] Method Time Signature Sodium 142 133 - 144 [facility] mmol/L [facility] LABS Potassium 4.7 3.4 - 5.3 [facility] mmol/L [facility] LABS Chloride 106 94 - 109 [facility] mmol/L [facility] LABS Carbon Dioxide 28 20 - 32 [facility] mmol/L [facility] LABS Anion Gap 8 6 - 17 [facility] mmol/L [facility] LABS Glucose 196 (H) 60 - 99 [facility] mg/dL [facility] LABS Urea Nitrogen 71 (H) 7 - 30 [facility] mg/dL [facility] LABS Creatinine 3.96 (H) 0.66 - [facility] 1.25 mg/dL [facility] LABS GFR Estimate 15 (L) >60 [facility] mL/min/1.7 [place] m2 CAMPUS LABS GFR Estimate If 19 (L) >60 [facility] Black mL/min/1.[address] LABS Calcium 9.4 8.5 - 10.4 [facility] mg/dL [facility] LABS Specimen Anatomical Collection Method Collection Time Receive d Time (Source) Location / / Volume Laterality Blood specimen 02/06/2014 5:57 AM 014 6:03 (specimen) CDT AM CDT Omaira Chavez PA-C LAB - BLOOD ORDERABLES Performing Organization Address City/State/ZIP Code Phon e Number [facility] [address] LABS Phosphorus (02/06/2014 5:57 AM [...] Phon e Number [facility] [address] [place], [place] [id number] [place] [address] LABS Magnesium (02/06/2014 5:57 AM CDT) P athologist Signature Magnesium 1.9 1.6 - 2.3 [facility] mg/dL [place] LABS Specimen Anatomical Collection Method Collection Time Receive d Time (Source) Location / / Volume Laterality Blood specimen 02/06/2014 5:57 AM 014 6:03 (specimen) CDT AM CDT Omaira Chavez PA-C LAB - BLOOD ORDERABLES Performing Organization Address City/[facility]/ZIP Code Phon e Number [facility] [address] [place] [address] [facility] LABS (ABNORMAL) CBC with platelets differential (02/06/2014 5:57 AM CDT) Patholo gist Method Time Signature WBC 5.1 4.0 - [facility] 11.0 [facility] 10e9/L [place] LABS RBC Count 3.13 (L) 4.4 - 5.9 [facility] 10e12/L [facility] LABS Hemoglobin 9.6 (L) 13.3 - [facility] 17.7 g/dL [facility] LABS Hematocrit 29.0 (L) 40.0 - [facility] 53.0 % [facility] LABS MCV 93 78 - 100 [facility] fl [facility] LABS MCH 30.7 26.5 - [facility] 33.0 pg [facility] LABS MCHC 33.1 31.5 - [facility] 36.5 g/dL [facility] LABS RDW 14.5 10.0 - [facility] 15.0 % [facility] LABS Platelet Count 85 (L) 150 - 450 [facility] 10e9/L [facility] LABS Diff Method Automated [facility] Method [facility] LABS % Neutrophils 86.0 % [facility] LABS % Lymphocytes 5.1 % [facility] LABS % Monocytes 8.7 % [facility] LABS % Eosinophils 0.0 % [facility] LABS % Basophils 0.0 % [facility] LABS % Immature 0.2 % [facility] Granulocytes [facility] LABS Absolute 4.4 1.6 - 8.3 [facility] Neutrophil 10e9/L [facility] LABS Absolute 0.3 (L) 0.8 - 5.3 [facility] Lymphocytes 10e9/L [facility] LABS Absolute 0.4 0.0 - 1.3 [facility] Monocytes 10e9/L [facility] LABS Absolute 0.0 0.0 - 0.7 [facility] Eosinophils 10e9/L [facility] LABS Absolute 0.0 0.0 - 0.2 [facility] Basophils 10e9/L [facility] LABS Abs Immature 0.0 0 - 0.4 [facility] Granulocytes 10e9/L [facility] LABS Specimen Anatomical Collection Method Collection Time Receive d Time (Source) Location / / Volume Laterality Blood specimen 02/06/2014 5:57 AM 014 6:03 (specimen) CDT AM CDT Omaira Chavez PA-C LAB - BLOOD ORDERABLES Performing Organization Address City/State/ZIP Code Phon e Number [facility] [address] [place], [place] [phone] [place] [address] LABS (ABNORMAL) Lipid panel reflex to direct LDL (02/06/2014 5:57 AM CDT) P athologist Signature Cholesterol 126 <200 mg/dL [facility] LABS Comment: LDL Cholesterol is the primary guide to therapy. The NCEP recommends further evaluation of: patients with cholesterol greater than 200 mg/dL if additional risk facto rs are present, cholesterol greater than 240 mg/dL, triglycerides greater than 1 50 mg/dL, or HDL less than 40 mg/dL. Triglycerides 100 0 - 150 mg/dL [facility] [place] LABS HDL Cholesterol 35 (L) >40 mg/dL [facility] [place] LABS LDL Cholesterol Calculated 71 0 - 129 mg/dL [facility] LABS Comment: LDL Cholesterol is the primary guide to therapy: LDL-cholesterol goal in high risk patients is <100 mg/dL and in very high risk patients is <70 mg/dL. VLDL-Cholesterol 20 0 - 30 mg/dL [facility] LAB[facility] Cholesterol/HDL Ratio 3.6 0.0 - 5.0 [facility] [place] LABS Specimen Anatomical Collection Method Collection Time Receive d Time (Source) Location / / Volume Laterality Blood specimen 02/06/2014 5:57 AM 06/18/2 014 6:03 (specimen) CDT AM CDT Omaira Chavez PA-C LAB - BLOOD ORDERABLES Performing Organization Address City/State/ZIP Code Phon e Number [facility] [address] [place] [address] [facility] LABS Tacrolimus level (02/06/2014 5:57 AM CDT) [facility] gist Method Time Signature Tacrolimus S Negative [facility] Last Dose [facility] LABS Tacrolimus 12.7 5.0 - [facility] Level 15.0 ug/L [facility] LABS Comment: Tacrolimus Reference Range Kidney [...] Address City/[facility]/ZIP Code Phon e Number [facility] [address] LABS (ABNORMAL) Glucose by meter (02/06/2014 3:21 AM CDT) P athologist Signature Glucose 216 (H) 60 - 99 POINT OF CARE mg/dL TEST, GLUCOSE Specimen Anatomical Collection Method Collection Time Receive d Time (Source) Location / / Volume Laterality 02/06/2014 3:21 AM 4 3:25 CDT AM CDT Migel Merchant MD LAB - BEAKER POCT Performing Organization Address City/[facility]/ZIP Code Phon e Number [facility] POINT OF CARE TEST, GLUCOSE POINT OF CARE TEST, GLUCOSE (ABNORMAL) Hemoglobin (02/06/2014 1:02 AM CDT) athologist Signature Hemoglobin 10.2 (L) 13.3 - [facility] 17.7 g/dL [place] LABS Specimen Anatomical Collection Method Collection Time Receive d Time (Source) Location / / Volume Laterality Blood specimen 02/06/2014 1:02 AM 014 1:11 (specimen) CDT AM CDT Deysi Alicea MD LAB - BLOOD ORDERABLES Performing Organization Address City/[facility]/ZIP Code Phon e Number [address] LABS (ABNORMAL) Glucose by meter (02/05/2014 10:23 PM CDT) P athologist Signature Glucose 254 (H) 60 - 99 POINT OF CARE mg/dL TEST, GLUCOSE Specimen Anatomical Collection Method Collection Time Receive d Time (Source) Location / / Volume Laterality 02/05/2014 10:23 02/05/2014 PM CDT 10:25 PM CDT Migel Merchant MD LAB - BEAKER POCT Performing Organization Address City/[facility]/ZIP Code Phon e Number [facility] POINT OF CARE TEST, GLUCOSE POINT OF CARE TEST, GLUCOSE Heparin 10a Level (02/05/2014 7:32 PM CDT) P athologist Signature Heparin 10A 0.64 IU/mL [facility] LABS Comment: Therapeutic Range: ?? UFH: [...] Address City/State/ZIP Code Phon e Number [address] LABS (ABNORMAL) Glucose by meter (02/05/2014 [...] LARES - BEAJ POCT Performing Organization Address City/[facility]/ZIP Code Phon e Number [facility] POINT [...] LARES - BEAKER POCT Performing Organization Address City/[facility]/ZIP Code Phon e Number [facility] POINT OF CARE TEST, GLUCOSE POINT OF CARE TEST, GLUCOSE (ABNORMAL) INR (02/05/2014 12:04 PM CDT) P athologist Signature INR 1.24 (H) 0.86 - 1.14 [facility] LABS Specimen Anatomical Collection Method Collection Time Receive d Time (Source) Location / / Volume Laterality Blood specimen 02/05/2014 12:04 4 (specimen) PM CDT 12:10 PM CDT Teresa Wright [facility] LAB - BLOOD ORDERABLES Performing Organization Address City/[facility]/ZIP Code Phon e Number [address] [address] [facility] LABS (ABNORMAL) CBC with platelets (02/05/2014 12:04 PM CDT) Patholo gist Method Time Signature WBC 7.4 4.0 - 11.0 [facility] 10e9/L [facility] LABS RBC Count 3.31 (L) 4.4 - 5.9 [facility] 10e12/L [facility] LABS Hemoglobin 10.3 (L) 13.3 - [facility] 17.7 g/dL [facility] LABS Hematocrit 31.0 (L) 40.0 - [facility] 53.0 % [facility] LABS MCV 94 78 - 100 [facility] fl [facility] LABS MCH 31.1 26.5 - [facility] 33.0 pg [facility] LABS MCHC 33.2 31.5 - [facility] 36.5 g/dL [facility] LABS RDW 14.7 10.0 - [facility] 15.0 % [facility] LABS Platelet Count 91 (L) 150 - 450 [facility] 10e9/L [facility] LABS Specimen Anatomical Collection Method Collection Time Receive d Time (Source) Location / / Volume Laterality Blood specimen 02/05/2014 12:04 4 (specimen) PM CDT 12:10 PM CDT Omaira Chavez PA-C LAB - BLOOD ORDERABLES Performing Organization Address City/State/ZIP Code Phon e Number [phone] [place] [address] LABS (ABNORMAL) Glucose by meter (02/05/2014 11:25 [...] LARES - ROBERT POCT Performing Organization Address City/[facility]/ZIP Code Phon e Number FV POINT [...] LAB - BEAJ POCT Performing Organization Address City/[facility]/ZIP Code Phon e Number [facility] POINT OF CARE TEST, GLUCOSE POINT OF CARE TEST, GLUCOSE (ABNORMAL) Basic metabolic panel (02/05/2014 7:02 AM CDT) [facility] gist Method Time Signature Sodium 143 133 - 144 [facility] mmol/L [facility] LABS Potassium 4.3 3.4 - 5.3 [facility] mmol/L [facility] LABS Chloride 107 94 - 109 [facility] mmol/L [facility] LABS Carbon Dioxide 25 20 - 32 [facility] mmol/L [facility] LABS Anion Gap 10 6 - 17 [facility] mmol/L [facility] LABS Glucose 123 (H) 60 - 99 [facility] mg/dL [facility] LABS Urea Nitrogen 66 (H) 7 - 30 [facility] mg/dL [facility] LABS Creatinine 4.77 (H) 0.66 - [facility] 1.25 mg/dL [facility] LABS GFR Estimate 12 (L) >60 [facility] mL/min/1.7 [facility] m2 [facility]AMPUS LABS GFR Estimate If 15 (L) >60 [facility] Black mL/min/1.7 [place] [address] CAMPUS LABS Calcium 9.4 8.5 - 10.4 [facility] mg/dL [facility] LABS Specimen Anatomical Collection Method Collection Time Receive d Time (Source) Location / / Volume Laterality Blood specimen 02/05/2014 7:02 AM 014 7:05 (specimen) CDT AM CDT Omaira Chavez PA-C LAB - BLOOD ORDERABLES Performing Organization Address City/[facility]/ZIP Code Phon e Number [facility] [address] LABS (ABNORMAL) Phosphorus (02/05/2014 7:02 AM CDT) P athologist Signature Phosphorus 5.7 (H) 2.5 - 4.5 [facility] mg/dL [place] LABS Specimen Anatomical Collection Method Collection Time Receive d Time (Source) Location / / Volume Laterality Blood specimen 02/05/2014 7:02 AM 014 7:05 (specimen) CDT AM CDT Omaira Chavez PA-C LAB - BLOOD ORDERABLES Performing Organization Address City/[facility]/ZIP Code Phon e Number [facility] [address] LABS Magnesium (02/05/2014 7:02 AM CDT) P athologist Signature Magnesium 2.0 1.6 - 2.3 [facility] mg/dL [place] LABS Specimen Anatomical Collection Method Collection Time Receive d Time (Source) Location / / Volume Laterality Blood specimen 02/05/2014 7:02 AM 014 7:05 (specimen) CDT AM CDT Omaira Chavez PA-C LAB - BLOOD ORDERABLES Performing Organization Address City/[facility]/ZIP Code Phon e Number [facility] [address] [place], [place] [phone] [place] [address] LABS (ABNORMAL) CBC with platelets differential (02/05/2014 7:02 AM CDT) Patholo gist Method Time Signature WBC 8.9 4.0 - [facility] 11.0 [place] 10e9/L [place] LABS RBC Count 3.20 (L) 4.4 - 5.9 [facility] 10e12/L [facility] LABS Hemoglobin 9.7 (L) 13.3 - [facility] 17.7 g/dL [facility] LABS Hematocrit 30.0 (L) 40.0 - [facility] 53.0 % [facility] LABS MCV 94 78 - 100 [facility] fl [facility] LABS MCH 30.3 26.5 - [facility] 33.0 pg [facility] LABS MCHC 32.3 31.5 - [facility] 36.5 g/dL [facility] LABS RDW 14.6 10.0 - [facility] 15.0 % [facility] LABS Platelet Count 96 (L) 150 - 450 [facility] 10e9/L [facility] LABS Diff Method Automated [facility] Method [facility] LABS % Neutrophils 90.2 % [facility] LABS % Lymphocytes 4.4 % [facility] LABS % Monocytes 5.2 % [facility] % [facility]osinophils 0.0 % [facility] % Basophils 0.0 % [facility] % Immature 0.2 % [facility] Granulocytes [facility] Absolute 8.1 1.6 - 8.3 [facility] Neutrophil 10e9/L [facility] Absolute 0.4 (L) 0.8 - 5.3 [facility] Lymphocytes 10e9/L [facility] Absolute 0.5 0.0 - 1.3 [facility] Monocytes 10e9/L [facility] Absolute 0.0 0.0 - 0.7 [facility] Eosinophils 10e9/L [facility] Absolute 0.0 0.0 - 0.2 [facility] Basophils 10e9/L [facility] Abs Immature 0.0 0 - 0.4 [facility] Granulocytes 10e9/L [facility] Specimen Anatomical Collection Method Collection Time Receive d Time (Source) Location / / Volume Laterality Blood specimen 02/05/2014 7:02 AM 014 7:05 (specimen) CDT AM CDT Omaira Chavez PA-C LAB - BLOOD ORDERABLES Performing Organization Address City/State/ZIP Code Phon e Number [address] [phone] [place] [address] LABS (ABNORMAL) Parathormone intact (02/05/2014 7:02 AM CDT) Patholo gist Method Time Signature Parathyroid 362 (H) 12 - 72 [facility] Hormone Intact pg/mL [facility] LABS Specimen Anatomical Collection Method Collection Time Receive d Time (Source) Location / / Volume Laterality Blood specimen 02/05/2014 7:02 AM 014 7:05 (specimen) CDT AM CDT Sina Robison MD LAB - BLOOD ORDERABLES Performing Organization Address [facility] Code Phon e Number [address] LABS (ABNORMAL) Ferritin (02/05/2014 7:02 AM CDT) P athologist Signature Ferritin 932 (H) 20 - 300 [facility] ng/mL [place] LABS Specimen Anatomical Collection Method Collection Time Receive d Time (Source) Location / / Volume Laterality Blood specimen 02/05/2014 7:02 AM 014 7:05 (specimen) CDT AM CDT Sina Robison MD LAB - BLOOD ORDERABLES Performing Organization Address [facility] Code Phon e Number [address] LABS (ABNORMAL) Iron and iron binding capacity (02/05/2014 7:02 AM CDT) Analysis Performed At Patho logist Time Signature Iron 119 35 - 180 [facility] ug/dL [facility] LABS Iron Binding 207 (L) 240 - 430 [facility] Cap ug/dL [facility] LABS Iron Saturation 58 (H) 15 - 46 % [facility] Index [facility] LABS Specimen Anatomical Collection Method Collection Time Receive d Time (Source) Location / / Volume Laterality Blood specimen 02/05/2014 7:02 AM 014 7:05 (specimen) CDT AM CDT Sina Robison MD LAB - BLOOD ORDERABLES Performing Organization Address City/[facility]/ZIP Code Phon e Number [facility] [address] LABS (ABNORMAL) Glucose by meter (02/05/2014 [...] LAB - BEAKER POCT Performing Organization Address City/[facility]/ZIP Code Phon e Number FV POINT [...] LAB - BEAJ POCT Performing Organization Address City/[facility]/ZIP Code Phon e Number FV POINT [...] LAB - ROBERT POCT Performing Organization Address City/[facility]/ZIP Code Phon e Number FV POINT [...] LARES - ROBERT POCT Performing Organization Address City/[facility]/ZIP Code Phon e Number FV POINT [...] LARES - ROBERT POCT Performing Organization Address City/[facility]/ZIP Code Phon e Number FV POINT [...] LARES - ROBERT POCT Performing Organization Address City/[facility]/ZIP Code Phon e Number FV POINT [...] Carr MD ECG ORDERABLES Performing Organization Address City/[facility]/ZIP Code Phon e Number RADIOLOGY RESULTS (ABNORMAL) Glucose by meter (02/04/2014 10:56 PM CDT) P athologist Signature Glucose 161 (H) 60 - 99 POINT OF CARE mg/dL TEST, GLUCOSE Specimen Anatomical Collection Method Collection Time Receive d Time (Source) Location / / Volume Laterality 02/04/2014 10:56 02/04/2014 PM CDT 11:00 PM CDT Migel LARES - ROBERT POCT Performing Organization Address City/[facility]/ZIP Code Phon e Number FV POINT [...] LARES - ROBERT POCT Performing Organization Address City/[facility]/ZIP Code Phon e Number FV POINT [...] LAB - ROBERT POCT Performing Organization Address City/[facility]/ZIP Code Phon e Number FV POINT [...] athologist Signature Troponin I 0.016 0.000 - [facility] 0.034 ug/L [place] LABS Specimen Anatomical Collection Method Collection Time Receive d Time (Source) Location / / Volume Laterality Blood specimen 02/04/2014 7:10 PM 014 7:23 (specimen) CDT PM CDT Adeline Diaz MD LAB - BLOOD ORDERABLES Performing Organization Address City/[facility]/ZIP Code Phon e Number [phone] [place] [address] LABS (ABNORMAL) Glucose by meter (02/04/2014 7:01 PM CDT) P athologist Signature Glucose 157 (H) 60 - 99 POINT OF CARE mg/dL TEST, GLUCOSE Specimen Anatomical Collection Method Collection Time Receive d Time (Source) Location / / Volume Laterality 02/04/2014 7:01 PM 4 7:05 CDT PM CDT Migel Merchant MD LAB - BEAKER POCT Performing Organization Address City/[facility]/ZIP Code Phon e Number FV POINT [...] LAB - BEAKER POCT Performing Organization Address City/[facility]/ZIP Code Phon e Number FV POINT [...] 4:10 CDT PM CDT Migel LARES - [facility] POCT Performing [...] LAB - BEAKER POCT Performing Organization Address City/[facility]/ZIP Code Phon e Number FV POINT [...] Troponin I (02/04/2014 12:42 PM CDT) athologist [facility] Troponin I ES 0.025 0.000 - [facility] 0.034 ug/L CAMPUS LABS Specimen Anatomical Collection Method Collection Time Receive d Time (Source) Location / / Volume Laterality Blood specimen 02/04/2014 12:42 4 (specimen) PM CDT 12:45 PM CDT Adeline Diaz MD LAB - BLOOD ORDERABLES Performing Organization Address City/State/ZIP Code Phon e Number [facility] [address] [place] [address] [facility] LABS (ABNORMAL) Glucose by meter (02/04/2014 12:27 PM CDT) P athologist Signature Glucose 140 (H) 60 - 99 POINT OF CARE mg/dL TEST, GLUCOSE Specimen Anatomical Collection Method Collection Time Receive d Time (Source) Location / / Volume Laterality 02/04/2014 12:27 02/04/2014 PM CDT 12:30 PM CDT Migel LARES - ROBERT POCT Performing Organization Address [facility]/ZIP Code Phon e Number FV POINT [...] LARES - BEAJ POCT Performing Organization Address City/[facility]/ZIP Code Phon e Number FV POINT [...] ROBERT POCT Performing Organization Address [facility]/ZIP Code Phon e Number FV POINT OF CARE TEST, GLUCOSE POINT OF CARE TEST, GLUCOSE EKG 12-lead, complete (02/04/2014 9:21 AM CDT) [facility] Time Signature Interpretation ECG Click View RADIOLOGY Image link RESULTS to view waveform and result Specimen (Source) Anatomical Collection Method Collection Time Re ceived Time Location / / Volume Laterality 02/04/2014 9:21 AM CDT Omaira Chavez PA-C ECG ORDERABLES Performing Organization Address [facility]/ZIP [facility] Phon e Number RADIOLOGY RESULTS (ABNORMAL) [...] ROBERT POCT Performing Organization Address [facility]/ZIP Code Phon e Number FV POINT [...] ROBERT POCT Performing Organization Address [facility]/ZIP [facility] Phon [...] ROBERT POCT Performing Organization Address [facility] Phon e Number FV [...] ECG ORDERABLES Performing Organization Address [facility] Phon e Number RADIOLOGY [...] Signature Troponin I ES <0.012 0.000 - [facility] 0.034 ug/L CAMPUS LABS Specimen Anatomical Collection Method Collection Time Receive d Time (Source) Location / / Volume Laterality 02/04/2014 5:49 AM 201 4 5:51 CDT AM CDT Caitlin Owens MD LAB - BLOOD ORDERABLES Performing Organization Address City/State/ZIP Code Phon e Number [facility] [address] LABS (ABNORMAL) Basic metabolic panel (02/04/2014 5:49 AM CDT) Patholo gist Method Time Signature Sodium 142 133 - 144 [facility] mmol/L [facility] Potassium 4.9 3.4 - 5.3 [facility] mmol/L [facility] Chloride 107 94 - 109 [facility] mmol/L [facility] [place] [facility] Carbon Dioxide 23 20 - 32 [facility] mmol/L [facility] Anion Gap 12 6 - 17 [facility] mmol/L [facility] LABS Glucose 151 (H) 60 - 99 [facility] mg/dL [facility] [place] LABS Urea Nitrogen 57 (H) 7 - 30 [facility] mg/dL [facility] [place] [facility]S Creatinine 5.94 (H) 0.66 - [facility] 1.25 mg/dL [facility] GFR Estimate 10 (L) >60 [facility] mL/min/1.7 [facility] m2 CAMPUS LABS GFR Estimate If 12 (L) >60 [facility] Black mL/min/1.7 [place] [address] CAMPUS LABS Calcium 9.4 8.5 - 10.4 [facility] mg/dL [facility] LABS Specimen Anatomical Collection Method Collection Time Receive d Time (Source) Location / / Volume Laterality Blood specimen 02/04/2014 5:49 AM 014 5:51 (specimen) CDT AM CDT Omaira Chavez PA-C LAB - BLOOD ORDERABLES Performing Organization Address City/State/ZIP Code Phon e Number [facility] [address] LABS (ABNORMAL) Phosphorus (02/04/2014 5:49 AM CDT) athologist Signature Phosphorus 6.3 (H) 2.5 - 4.5 [facility] mg/dL [place] LABS Specimen Anatomical Collection Method Collection Time Receive d Time (Source) Location / / Volume Laterality Blood specimen 02/04/2014 5:49 AM 014 5:51 (specimen) CDT AM CDT Omaira Chavez PA-C LAB - BLOOD ORDERABLES Performing Organization Address City/[facility] Phon e Number [facility] [address] LABS Magnesium (02/04/2014 5:49 AM CDT) athologist Signature Magnesium 2.1 1.6 - 2.3 [facility] mg/dL [place] LABS Specimen Anatomical Collection Method Collection Time Receive d Time (Source) Location / / Volume Laterality Blood specimen 02/04/2014 5:49 AM 014 5:51 (specimen) CDT AM CDT Omaira Chavez PA-C LAB - BLOOD ORDERABLES Performing Organization Address City/State/[facility] Code Phon e Number [facility] [address] [place] [address] [facility] LABS (ABNORMAL) CBC with platelets differential (02/04/2014 5:49 AM CDT) [facility] gist Method Time Signature WBC 13.8 (H) 4.0 - [facility] 11.0 [place] 10e9/L [place] LABS RBC Count 3.10 (L) 4.4 - 5.9 [facility] 10e12/L [facility] LABS Hemoglobin 9.5 (L) 13.3 - [facility] 17.7 g/dL [facility] LABS Hematocrit 28.7 (L) 40.0 - [facility] 53.0 % [facility] LABS MCV 93 78 - 100 [facility] fl [facility] LABS MCH 30.6 26.5 - [facility] 33.0 pg [facility] LABS MCHC 33.1 31.5 - [facility] 36.5 g/dL [facility] LABS RDW 14.6 10.0 - [facility] 15.0 % [facility] LABS Platelet Count 91 (L) 150 - 450 [facility] 10e9/L [facility] LABS Diff Method Automated [facility] Method [facility] LABS % Neutrophils 95.8 % [facility] [place] [facility] % Lymphocytes 1.2 % [facility] [place] [facility] LABS % Monocytes 2.8 % [facility] [place] [facility] LAB[facility] % Eosinophils 0.0 % [facility] [place] [facility] LABS % Basophils 0.0 % [facility] [place] [facility] % Immature 0.2 % [facility] Granulocytes [facility] LABS Absolute 13.2 (H) 1.6 - 8.3 [facility] Neutrophil 10e9/L [facility] LABS Absolute 0.2 (L) 0.8 - 5.3 [facility] Lymphocytes 10e9/L [facility] LABS Absolute 0.4 0.0 - 1.3 [facility] Monocytes 10e9/L [facility] LABS Absolute 0.0 0.0 - 0.7 [facility] Eosinophils 10e9/L [facility] LABS Absolute 0.0 0.0 - 0.2 [facility] Basophils 10e9/L [facility] LABS Abs Immature 0.0 0 - 0.4 [facility] Granulocytes 10e9/L [facility] LABS Specimen Anatomical Collection Method Collection Time Receive d Time (Source) Location / / Volume Laterality Blood specimen 02/04/2014 5:49 AM 014 5:51 (specimen) CDT AM CDT Omaira Chavez PA-C LAB - BLOOD ORDERABLES Performing Organization Address City/State/ZIP Code Phon e Number [phone] [place] [address] LABS (ABNORMAL) Glucose by meter (02/04/2014 5:33 [...] ROBERT POCT Performing Organization Address [facility]/ZIP Code Phon e Number FV POINT [...] ROBERT POCT Performing Organization Address [facility] Code Phon e Number FV POINT [...] ROBERT POCT Performing Organization Address [facility] Code Phon e Number FV POINT [...] CDT Migel JONES POCT Performing Organization Address [facility] Code Phon e Number FV POINT [...] LARES - ROBERT POCT Performing Organization Address City/[facility]/ZIP Code Phon e Number FV POINT OF CARE TEST, GLUCOSE POINT OF CARE TEST, GLUCOSE Potassium (02/03/2014 10:16 PM CDT) athologist Signature Potassium 4.8 3.4 - 5.3 [facility] mmol/L CAMPUS LABS Specimen Anatomical Collection Method Collection Time Receive d Time (Source) Location / / Volume Laterality Blood specimen 02/03/2014 10:16 4 (specimen) PM CDT 10:19 PM CDT Caitlin Owens MD LAB - BLOOD ORDERABLES Performing Organization Address [facility] Phon e Number [address] LABS (ABNORMAL) Hemoglobin (02/03/2014 10:16 PM CDT) athologist Signature Hemoglobin 9.4 (L) 13.3 - 17.7 [facility] g/dL [place] LABS Specimen Anatomical Collection Method Collection Time Receive d Time (Source) Location / / Volume Laterality Blood specimen 02/03/2014 10:16 4 (specimen) PM CDT 10:19 PM CDT Caitlin Owens MD LAB - BLOOD ORDERABLES Performing Organization Address City/[facility]/ZIP [facility] Phon e Number [facility] [address] LABS (ABNORMAL) Glucose by meter (02/03/2014 9:55 PM CDT) athologist Signature Glucose 167 (H) 60 - 99 POINT OF CARE mg/dL TEST, GLUCOSE Specimen Anatomical Collection Method Collection Time Receive d Time (Source) Location / / Volume Laterality 02/03/2014 9:55 PM 4 CDT 10:00 PM CDT Migel Merchant MD LAB - BEAJ POCT Performing Organization Address City/[facility]/ZIP Code Phon e Number FV POINT [...] LAB - BEAJ POCT Performing Organization Address City/[facility]/ZIP Code Phon e Number FV POINT [...] athologist Signature Potassium 4.7 3.4 - 5.3 [facility] mmol/L CAMPUS LABS Specimen Anatomical Collection Method Collection Time Receive d Time (Source) Location / / Volume Laterality Blood specimen 02/03/2014 6:52 PM 014 6:53 (specimen) CDT PM CDT Caitlin Owens MD LAB - BLOOD ORDERABLES Performing Organization Address City/[facility]/ZIP Code Phon e Number [facility] [address] LABS (ABNORMAL) Hemoglobin (02/03/2014 6:52 PM CDT) athologist Signature Hemoglobin 9.6 (L) 13.3 - 17.7 [facility] g/dL [place] LABS Specimen Anatomical Collection Method Collection Time Receive d Time (Source) Location / / Volume Laterality Blood specimen 02/03/2014 6:52 PM 014 6:53 (specimen) CDT PM CDT Caitlin Owens MD LAB - BLOOD ORDERABLES Performing Organization Address City/[facility]/ZIP Code Phon e Number [facility] [address] LABS (ABNORMAL) Glucose by meter (02/03/2014 6:00 PM CDT) athologist Signature Glucose 140 (H) 60 - 99 POINT OF CARE mg/dL TEST, GLUCOSE Specimen Anatomical Collection Method Collection Time Receive d Time (Source) Location / / Volume Laterality 02/03/2014 6:00 PM 4 6:05 CDT PM CDT Migel JONES POCT Performing Organization Address City/[facility]/ZIP Code Phon e Number FV POINT [...] CDT Migel JONES POCT Performing Organization Address City/[facility]/ZIP Code Phon e Number FV POINT [...] LAB - BEAKER POCT Performing Organization Address City/[facility]/ZIP Code Phon e Number FV POINT [...] BEAKER POCT Performing Organization Address [facility] Phon e Number FV POINT OF CARE TEST, GLUCOSE POINT OF CARE TEST, GLUCOSE Potassium (02/03/2014 1:41 PM CDT) athologist Signature Potassium 4.7 3.4 - 5.3 [facility] mmol/L CAMPUS LABS Specimen Anatomical Collection Method Collection Time Receive d Time (Source) Location / / Volume Laterality Blood specimen 02/03/2014 1:41 PM 014 1:43 (specimen) CDT PM CDT Caitlin Owens MD LAB - BLOOD ORDERABLES Performing Organization Address [facility] Code Phon e Number [address] LABS (ABNORMAL) Hemoglobin (02/03/2014 1:41 PM CDT) athologist Signature Hemoglobin 9.8 (L) 13.3 - 17.7 [facility] g/dL [place] LABS Specimen Anatomical Collection Method Collection Time Receive d Time (Source) Location / / Volume Laterality Blood specimen 02/03/2014 1:41 PM 014 1:43 (specimen) CDT PM CDT Caitlin Owens MD LAB - BLOOD ORDERABLES Performing Organization Address City/[facility] Phon e Number [address] [facility] LABS (ABNORMAL) Glucose by [...] LAB - ROBERT POCT Performing Organization Address City/[facility]/ZIP Code Phon e Number FV POINT [...] LAB - BEAKER POCT Performing Organization Address City/[facility]/ZIP Code Phon e Number FV POINT OF CARE TEST, GLUCOSE POINT OF CARE TEST, GLUCOSE Potassium (02/03/2014 10:11 AM CDT) P athologist Signature Potassium 4.8 3.4 - 5.3 [facility] mmol/L [place] LABS Specimen Anatomical Collection Method Collection Time Receive d Time (Source) Location / / Volume Laterality Blood specimen 02/03/2014 10:11 4 (specimen) AM CDT 10:23 AM CDT Caitlin Owens MD LAB - BLOOD ORDERABLES Performing Organization Address City/[facility]/ZIP Code Phon e Number [facility] [address] [place], [place] [phone] [place] [address] LABS (ABNORMAL) Hemoglobin (02/03/2014 10:11 AM CDT) athologist Signature Hemoglobin 9.7 (L) 13.3 - 17.7 [facility] g/dL [place] LABS Specimen Anatomical Collection Method Collection Time Receive d Time (Source) Location / / Volume Laterality Blood specimen 02/03/2014 10:11 4 (specimen) AM CDT 10:23 AM CDT Caitlin Owens MD LAB - BLOOD ORDERABLES Performing Organization Address City/[facility]/ZIP Code Phon e Number [facility] [address] [place], [place] [phone] [place] [address] LABS (ABNORMAL) Glucose by meter (02/03/2014 9:58 AM CDT) athologist Signature Glucose 168 (H) 60 - 99 POINT OF CARE mg/dL TEST, GLUCOSE Specimen Anatomical Collection Method Collection Time Receive d Time (Source) Location / / Volume Laterality 02/03/2014 9:58 AM 4 CDT 10:00 AM CDT Migel LARES - ROBERT POCT Performing Organization Address City/[facility]/ZIP Code Phon e Number FV POINT [...] LARES - ROBERT POCT Performing Organization Address City/[facility]/ZIP Code Phon e Number FV POINT [...] ROBERT POCT Performing Organization Address [facility] Phon e Number FV [...] ROBERT POCT Performing Organization Address [facility] Phon e Number FV [...] BEAJ POCT Performing Organization Address [facility] Phon e Number FV POINT OF CARE TEST, GLUCOSE POINT OF CARE TEST, GLUCOSE (ABNORMAL) Basic metabolic panel (02/03/2014 5:38 AM CDT) [facility] gist Method Time Signature Sodium 141 133 - 144 [facility] mmol/L [facility] [place] [facility] Potassium 4.4 3.4 - 5.3 [facility] mmol/L [facility] LABS Chloride 105 94 - 109 [facility] mmol/L [facility] LABS Carbon Dioxide 20 20 - 32 [facility] mmol/L [facility] Anion Gap 15 6 - 17 [facility] mmol/L [facility] LABS Glucose 170 (H) 60 - 99 [facility] mg/dL [facility] LABS Urea Nitrogen 49 (H) 7 - 30 [facility] mg/dL [facility] LABS Creatinine 6.38 (H) 0.66 - [facility] 1.25 mg/dL [facility] LABS GFR Estimate 9 (L) >60 [facility] mL/min/1.7 [place] m2 CAMPUS LABS GFR Estimate If 11 (L) >60 [facility] Black mL/min/1.7 [place] m2 CAMPUS LABS Calcium 9.1 8.5 - 10.4 [facility] mg/dL [facility] LABS Specimen Anatomical Collection Method Collection Time Receive d Time (Source) Location / / Volume Laterality Blood specimen 02/03/2014 5:38 AM 014 5:40 (specimen) CDT AM CDT Omaira Chavez PA-C LAB - BLOOD ORDERABLES Performing Organization Address City/[facility]/ZIP Code Phon e Number [facility] [address] LABS (ABNORMAL) Phosphorus (02/03/2014 5:38 AM CDT) P athologist Signature Phosphorus 4.7 (H) 2.5 - 4.5 [facility] mg/dL [place] [facility] Specimen Anatomical Collection Method Collection Time Receive d Time (Source) Location / / Volume Laterality Blood specimen 02/03/2014 5:38 AM 014 5:40 (specimen) CDT AM CDT Omaira Chavez PA-C LAB - BLOOD ORDERABLES Performing Organization Address City/State/ZIP Code Phon e Number [facility] [address] LABS Magnesium (02/03/2014 5:38 AM CDT) P athologist Signature Magnesium 2.0 1.6 - 2.3 [facility] mg/dL [place] [facility] Specimen Anatomical Collection Method Collection Time Receive d Time (Source) Location / / Volume Laterality Blood specimen 02/03/2014 5:38 AM 014 5:40 (specimen) CDT AM CDT Omaira Chavez PA-C LAB - BLOOD ORDERABLES Performing Organization Address City/State/ZIP Code Phon e Number [facility] [address] LABS (ABNORMAL) CBC with platelets differential (02/03/2014 5:38 AM CDT) Patholo gist Method Time Signature WBC 13.2 (H) 4.0 - [facility] 11.0 [facility] 10e9/L [place] [facility] RBC Count 3.20 (L) 4.4 - 5.9 [facility] 10e12/L [facility] LABS Hemoglobin 9.9 (L) 13.3 - [facility] 17.7 g/dL [facility] LABS Hematocrit 30.2 (L) 40.0 - [facility] 53.0 % [facility] LABS MCV 94 78 - 100 [facility] fl [facility] LABS MCH 30.9 26.5 - [facility] 33.0 pg [facility] LABS MCHC 32.8 31.5 - [facility] 36.5 g/dL [facility] LABS RDW 14.5 10.0 - [facility] 15.0 % [facility] LABS Platelet Count 108 (L) 150 - 450 [facility] 10e9/L [facility] LABS Diff Method Automated [facility] Method [facility] % [facility]ils 96.9 % [facility] % Lymphocytes 0.7 % [facility] % Monocytes 2.1 % [facility] % Eosinophils 0.0 % [facility] % Basophils 0.1 % [facility] % Immature 0.2 % [facility] Granulocytes [facility] Absolute 12.8 (H) 1.6 - 8.3 [facility] Neutrophil 10e9/L [facility] LABS Absolute 0.1 (L) 0.8 - 5.3 [facility] Lymphocytes 10e9/L [facility]S Absolute 0.3 0.0 - 1.3 [facility] Monocytes 10e9/L [facility] Absolute 0.0 0.0 - 0.7 [facility] Eosinophils 10e9/L [facility] Absolute 0.0 0.0 - 0.2 [facility] Basophils 10e9/L [facility] LABS Abs Immature 0.0 0 - 0.4 [facility] Granulocytes 10e9/L [facility] LABS Specimen Anatomical Collection Method Collection Time Receive d Time (Source) Location / / Volume Laterality Blood specimen 02/03/2014 5:38 AM 014 5:40 (specimen) CDT AM CDT Omaira Chavez PA-C LAB - BLOOD ORDERABLES Performing Organization Address City/State/ZIP Code Phon e Number [facility] [address] [place] [address] [facility] LABS (ABNORMAL) Hemoglobin A1c (02/03/2014 5:38 AM CDT) Analysis Performed At Patho logist Time Signature Hemoglobin A1C 6.2 (H) 4.3 - 6.0 [facility] LABS Specimen Anatomical Collection Method Collection Time Receive d Time (Source) Location / / Volume Laterality Blood specimen 02/03/2014 5:38 AM 014 5:40 (specimen) CDT AM CDT Caitlin Owens MD LAB - BLOOD ORDERABLES Performing Organization Address City/[facility]/ZIP Code Phon e Number [facility] [address] [place] [address] [facility] LABS (ABNORMAL) Glucose by meter (02/03/2014 5:05 [...] LARES - ROBERT POCT Performing Organization Address City/[facility]/ZIP Code Phon e Number FV POINT [...] ROBERT POCT Performing Organization Address [facility] Phon e Number FV POINT OF CARE TEST, GLUCOSE POINT OF CARE TEST, GLUCOSE Potassium (02/03/2014 1:18 AM CDT) athologist Signature Potassium 4.7 3.4 - 5.3 [facility] mmol/L CAMPUS LABS Specimen Anatomical Collection Method Collection Time Receive d Time (Source) Location / / Volume Laterality Blood specimen 02/03/2014 1:18 AM 014 1:20 (specimen) CDT AM CDT Caitlin Owens MD LAB - BLOOD ORDERABLES Performing Organization Address [facility] Phon e Number [address] LABS (ABNORMAL) Hemoglobin (02/03/2014 1:18 AM CDT) athologist Signature Hemoglobin 9.8 (L) 13.3 - 17.7 [facility] g/dL CAMPUS LABS Specimen Anatomical Collection Method Collection Time Receive d Time (Source) Location / / Volume Laterality Blood specimen 02/03/2014 1:18 AM 014 1:20 (specimen) CDT AM CDT Caitlin Owens MD LAB - BLOOD ORDERABLES Performing Organization Address [facility] Phon e Number [address] LABS (ABNORMAL) Glucose by meter (02/03/2014 1:16 AM CDT) P athologist Signature Glucose 186 (H) 60 - 99 POINT OF CARE mg/dL TEST, GLUCOSE Specimen Anatomical Collection Method Collection Time Receive d Time (Source) Location / / Volume Laterality 02/03/2014 1:16 AM 4 1:20 CDT AM CDT Migel Merchant MD LAB - BEAKER POCT Performing Organization Address City/[facility] Phon e Number FV [...] BEAKER POCT Performing Organization Address [facility] Phon e Number FV [...] athologist Signature Phosphorus 4.4 2.5 - 4.5 [facility] mg/dL [place] LABS Specimen Anatomical Collection Method Collection Time Receive d Time (Source) Location / / Volume Laterality Blood specimen 02/02/2014 10:50 4 (specimen) PM CDT 11:06 PM CDT Caitlin Owesn MD LAB - BLOOD ORDERABLES Performing Organization Address City/State/ZIP Code Phon e Number [facility] [address] [place] [address] [facility] LABS Magnesium (02/02/2014 10:50 PM CDT) athologist Signature Magnesium 1.8 1.6 - 2.3 [facility] mg/dL CAMPUS LABS Specimen Anatomical Collection Method Collection Time Receive d Time (Source) Location / / Volume Laterality Blood specimen 02/02/2014 10:50 4 (specimen) PM CDT 11:06 PM CDT Caitlin Owens MD LAB - BLOOD ORDERABLES Performing Organization Address City/[facility]/ZIP Code Phon e Number [facility] [address] [place], [place] [phone] [place] [address] LABS (ABNORMAL) Basic metabolic panel (02/02/2014 10:50 PM CDT) [facility] Method Time Signature Sodium 138 133 - 144 [facility] mmol/L [facility] [place] LABS Potassium 4.5 3.4 - 5.3 [facility] mmol/L [facility] LABS Chloride 104 94 - 109 [facility] mmol/L [facility] LABS Carbon Dioxide 25 20 - 32 [facility] mmol/L [facility] LABS Anion Gap 10 6 - 17 [facility] mmol/L [facility] LABS Glucose 134 (H) 60 - 99 [facility] mg/dL [facility] LABS Urea Nitrogen 44 (H) 7 - 30 [facility] mg/dL [facility] LABS Creatinine 6.14 (H) 0.66 - [facility] 1.25 mg/dL [facility] LABS GFR Estimate 9 (L) >60 [facility] mL/min/1.7 [facility]ERS[facility] m2 CAMPUS LABS GFR Estimate If 11 (L) >60 [facility] Black mL/min/1.7 [place] m2 CAMPUS LABS Calcium 8.8 8.5 - 10.4 [facility] mg/dL [facility] LABS Specimen Anatomical Collection Method Collection Time Receive d Time (Source) Location / / Volume Laterality Blood specimen 02/02/2014 10:50 4 (specimen) PM CDT 11:06 PM CDT Caitlin Owens MD LAB - BLOOD ORDERABLES Performing Organization Address City/[facility]/ZIP Code Phon e Number [facility] [address] [place] [address] [facility] LABS (ABNORMAL) CBC with platelets differential (02/02/2014 10:50 PM CDT) [facility] Method Time Signature WBC 8.2 4.0 - [facility] 11.0 [place] 10e9/L [place] LABS RBC Count 3.34 (L) 4.4 - 5.9 [facility] 10e12/L [facility] LABS Hemoglobin 10.3 (L) 13.3 - [facility] 17.7 g/dL [facility] LABS Hematocrit 30.9 (L) 40.0 - [facility] 53.0 % [facility] LABS MCV 93 78 - 100 [facility] fl [facility] LABS MCH 30.8 26.5 - [facility] 33.0 pg [facility] LABS MCHC 33.3 31.5 - [facility] 36.5 g/dL [facility] LABS RDW 14.3 10.0 - [facility] 15.0 % [facility] LABS Platelet Count 79 (L) 150 - 450 [facility] 10e9/L [facility] LABS Diff Method Automated [facility] Method [facility] LABS % Neutrophils 96.7 % [facility] LABS % Lymphocytes 1.6 % [facility] LABS % Monocytes 1.2 % [facility] LABS % Eosinophils 0.4 % [facility] % Basophils 0.0 % [facility] LABS % Immature 0.1 % [facility] Granulocytes [facility] LABS Absolute 7.9 1.6 - 8.3 [facility] Neutrophil 10e9/L [facility] LABS Absolute 0.1 (L) 0.8 - 5.3 [facility] Lymphocytes 10e9/L [facility] LABS Absolute 0.1 0.0 - 1.3 [facility] Monocytes 10e9/L [facility] LABS Absolute 0.0 0.0 - 0.7 [facility] Eosinophils 10e9/L [facility] LABS Absolute 0.0 0.0 - 0.2 [facility] Basophils 10e9/L [facility] LABS Abs Immature 0.0 0 - 0.4 [facility] Granulocytes 10e9/L [facility] LABS Specimen Anatomical Collection Method Collection Time Receive d Time (Source) Location / / Volume Laterality Blood specimen 02/02/2014 10:50 4 (specimen) PM CDT 11:06 PM CDT Caitlin Owens MD LAB - BLOOD ORDERABLES Performing Organization Address City/State/ZIP Code Phon e Number [phone] [place] [address] LABS (ABNORMAL) VENOUS PANEL (02/02/2014 10:09 PM CDT) [facility] Method Time Signature Ph Venous 7.31 (L) 7.32 - [facility] 7.43 pH [facility] LABS PCO2 Venous 52 (H) 40 - 50 [facility] mm Hg [facility] LABS PO2 Venous 34 25 - 47 [facility] mm Hg [facility] LABS Bicarbonate 26 21 - 28 [facility] Venous mmol/L [facility] LABS Base Deficit 0.3 mmol/L [facility] Venous [facility] LABS Comment: Reference range: -7.7 to 1.9 FIO2 45 [facility] [place] LABS Sodium 137 133 - 144 mmol/L [facility] LABS Potassium 4.4 3.4 - 5.3 mmol/L [facility] LABS Hemoglobin 10.0 (L) 13.3 - 17.7 g/dL [facility] LABS Glucose 116 (H) 60 - 99 mg/dL [facility] LABS Calcium Ionized Whole Blood 4.8 4.4 - 5.2 mg/dL [facility] LABS Specimen Anatomical Collection Method Collection Time Receive d Time (Source) Location / / Volume Laterality 02/02/2014 10:09 02/02/2014 PM CDT 10:14 PM CDT Migel Merchant MD LAB - BLOOD ORDERABLES Performing Organization Address City/[facility]/ZIP Code Phon e Number [phone] [place] [address] LABS (ABNORMAL) Glucose by meter (02/02/2014 9:24 PM CDT) P athologist Signature Glucose 129 (H) 60 - 99 POINT OF CARE mg/dL TEST, GLUCOSE Specimen Anatomical Collection Method Collection Time Receive d Time (Source) Location / / Volume Laterality 02/02/2014 9:24 PM 4 9:31 CDT PM CDT Migel Merchant MD LAB - BEAKER POCT Performing Organization Address City/[facility]/ZIP Code Phon e Number FV POINT [...] LAB - BEAKER POCT Performing Organization Address City/[facility]/ZIP Code Phon e Number FV POINT OF CARE TEST, GLUCOSE POINT OF CARE TEST, GLUCOSE (ABNORMAL) VENOUS PANEL (02/02/2014 6:40 PM CDT) athologist Signature Ph Venous 7.35 7.32 - [facility] 7.43 pH [facility] LABS PCO2 Venous 50 40 - 50 mm [facility] Hg [facility] LABS PO2 Venous 46 25 - 47 mm [facility] Hg [facility] LABS Bicarbonate 28 21 - 28 [facility] Venous mmol/L [facility] LABS Base Excess 1.8 mmol/L [facility] Venous [facility] LABS Comment: Reference range: -7.7 to 1.9 FIO2 100% [facility] [place] LABS Sodium 141 133 - 144 mmol/L [facility] LABS Potassium 3.7 3.4 - 5.3 mmol/L [facility] LABS Hemoglobin 10.3 (L) 13.3 - 17.7 g/dL [facility] LABS Glucose 76 60 - 99 mg/dL [facility] LABS Calcium Ionized Whole Blood 4.8 4.4 - 5.2 mg/dL [facility] LABS Specimen Anatomical Collection Method Collection Time Receive d Time (Source) Location / / Volume Laterality 02/02/2014 6:40 PM 4 6:44 CDT PM CDT Migel Merchant MD LAB - BLOOD ORDERABLES Performing Organization Address City/State/ZIP Code Phon e Number [phone] [place] [address] LABS Glucose by meter (02/02/2014 5:11 PM [...] 3:50 CDT PM CDT Migel Merchant MD [facility] POCT Performing Organization Address City/State/ZIP Code [...] MARYELLEN Blood component (02/02/2014 2:07 PM CDT) [facility] Method Time Signature Unit Number [id number] [facility] LABS Blood Red Blood [facility] Component Cells [facility] Leukocyte [place] [facility] Reduced Division 00 [facility] Number [facility] LABS Status of No longer [place] Unit available [facility] 02/06/2014 HOSPITAL LAB 0300 Specimen Anatomical Collection Method Collection Time Receive d Time (Source) Location / / Volume Laterality 02/02/2014 2:07 PM 4 2:10 CDT PM CDT Caitlin Owens MD LABORATORY Performing Organization Address City/State/ZIP Code Phon e Number [facility] [address] [place], [place] [address] [facility] LABS [facility] LAB Blood component (02/02/2014 2:07 PM CDT) [facility] Method Time Signature Unit Number [id number] [facility] LABS Blood Red Blood [facility] Component Cells [facility] Leukocyte [place] LABS Reduced Division 00 [facility] Status of No longer [place] Unit available [facility] 02/06/2014 HOSPITAL LAB 0300 Specimen Anatomical Collection Method Collection Time Receive d Time (Source) Location / / Volume Laterality 02/02/2014 2:07 PM 4 2:10 CDT PM CDT Caitlin Owens MD LABORATORY Performing Organization Address City/[facility]/ZIP Code Phon e Number [place] [address] [place], [place] [address] [facility] LAB ABO/Rh type and screen (02/02/2014 2:07 PM CDT) [facility] Method Time Signature Units Ordered 2 [facility] LABS ABO A [facility] LABS RH(D) Pos [facility] LABS Antibody Neg [facility] Screen [facility] LABS Test Valid [facility] Only At [facility] B[facility] Center,Aide LAB w Hospital Specimen 02/05/2014 [facility] BLOOD BANK LAB Crossmatch Red Blood [facility] Cells [facility] LABS Specimen Anatomical Collection Method Collection Time Receive d Time (Source) Location / / Volume Laterality Blood specimen 02/02/2014 2:07 PM 014 2:10 (specimen) CDT PM CDT Caitlin Owens MD LAB - BLOOD BANK TEST ORDER Performing Organization Address City/State/ZIP Code Phon e Number [facility] [address] [place] [address] [facility] LABS [facility] BLOOD BANK LAB (ABNORMAL) Lipid Profile (02/02/2014 2:07 PM CDT) P athologist Signature Cholesterol 135 <200 mg/dL [facility] LABS Comment: LDL Cholesterol is the primary guide to therapy. The NCEP recommends further evaluation of: patients with cholesterol greater than 200 mg/dL if additional risk facto rs are present, cholesterol greater than 240 mg/dL, triglycerides greater than 1 50 mg/dL, or HDL less than 40 mg/dL. Triglycerides 124 0 - 150 mg/dL [facility] [place] LABS HDL Cholesterol 34 (L) >40 mg/dL [facility] LABS LDL Cholesterol Calculated 77 0 - 129 mg/dL [facility] LABS Comment: LDL Cholesterol is the primary guide to therapy: LDL-cholesterol goal in high risk patients is <100 mg/dL and in very high risk patients is <70 mg/dL. VLDL-Cholesterol 25 0 - 30 mg/dL [place] LABS Cholesterol/HDL Ratio 4.0 0.0 - 5.0 [facility] LABS Specimen Anatomical Collection Method Collection Time Receive d Time (Source) Location / / Volume Laterality Blood specimen 02/02/2014 2:07 PM 2 014 2:08 (specimen) CDT PM CDT Caitlin Owens MD LAB - BLOOD ORDERABLES Performing Organization Address City/[facility]/ZIP Code Phon e Number [address] LABS (ABNORMAL) Hemoglobin A1c (02/02/2014 2:07 PM CDT) Analysis Performed At Patho logist Time Signature Hemoglobin A1C 6.2 (H) 4.3 - 6.0 [facility] LABS Specimen Anatomical Collection Method Collection Time Receive d Time (Source) Location / / Volume Laterality Blood specimen 02/02/2014 2:07 PM 2 014 2:08 (specimen) CDT PM CDT Caitlin Owens MD LAB - BLOOD ORDERABLES Performing Organization Address City/State/ZIP Code Phon e Number [address] LABS Hepatitis C antibody (02/02/2014 2:07 [...] Address City/[facility]/ZIP Code Phon e Number [facility] [address] [place], [place] [phone] [place] [address] MICROBIOLOGY Hepatitis B core antibody IgM (02/02/2014 2:07 PM CDT) [facility] Method Time Signature Hepatitis B Negative NEG [facility] Core IgM MICROBIOLOGY Specimen Anatomical Collection Method Collection Time Receive d Time (Source) Location / / Volume Laterality Blood specimen 02/02/2014 2:07 PM 014 2:08 (specimen) CDT PM CDT Caitlin Owens MD LAB - BLOOD ORDERABLES Performing Organization Address City/[facility]/ZIP Code Phon e Number [facility] [address] MICROBIOLOGY Hepatitis B surface antigen (02/02/2014 2:07 PM CDT) [facility] Method Time Signature Hep B Surface Negative NEG [facility] Agn MICROBIOLOGY Specimen Anatomical Collection Method Collection Time Receive d Time (Source) Location / / Volume Laterality Blood specimen 02/02/2014 2:07 PM 2 014 2:08 (specimen) CDT PM CDT Caitlin Owens MD LAB - BLOOD ORDERABLES Performing Organization Address City/[facility]/ZIP Code Phon e Number [facility] [address] [place], [place] [phone] [place] [address] MICROBIOLOGY HIV Antigen Antibody Combo (02/02/2014 2:07 PM CDT) [facility] Method Time Signature HIV Antigen Nonreactive NR [facility] Antibody HIV-1 p24 Ag & HIV-1/HIV-2 Ab Not Detected [facility] LABS Specimen Anatomical Collection Method Collection Time Receive d Time (Source) Location / / Volume Laterality Blood specimen 02/02/2014 2:07 PM 014 2:08 (specimen) CDT PM CDT Caitlin Owens MD LAB - BLOOD ORDERABLES Performing Organization Address City/[facility]/ZIP Code Phon e Number [facility] [address] [place], [place] [phone] [place] [address] [facility] CAMPUS LABS EBV Capsid Antibody IgM (02/02/2014 2:07 PM CDT) [facility] Method Time Signature EBV Capsid <0.2 0.0 - 0.8 [facility] Antibody IgM No detectable antibody. [facility] LABS Specimen Anatomical Collection Method Collection Time Receive d Time (Source) Location / / Volume Laterality Blood specimen 02/02/2014 2:07 PM 014 2:08 (specimen) CDT PM CDT Caitlin Owens MD LAB - BLOOD ORDERABLES Performing Organization Address City/[facility]/ZIP Code Phon e Number [facility] [address] LABS (ABNORMAL) EBV Capsid Antibody IgG (02/02/2014 2:07 PM CDT) [facility] Method Time Signature EBV Capsid >8.0 0.0 - 0.8 [facility] Antibody IgG Positive, suggests recent or past exposure [facility] () [place] LABS Specimen Anatomical Collection Method Collection Time Receive d Time (Source) Location / / Volume Laterality Blood specimen 02/02/2014 2:07 PM 014 2:08 (specimen) CDT PM CDT Caitlin Owens MD LAB - BLOOD ORDERABLES Performing Organization Address City/[facility]/ZIP Code Phon e Number [facility] [address] LABS CMV antibody IgM (02/02/2014 2:07 PM CDT) Analysis Performed At Patho logist Time Signature CMV Antibody <0.2 0.0 - 0.8 [facility] IgM Negative [facility] LABS Specimen Anatomical Collection Method Collection Time Receive d Time (Source) Location / / Volume Laterality Blood specimen 02/02/2014 2:07 PM 014 2:08 (specimen) CDT PM CDT Caitlin Owens MD LAB - BLOOD ORDERABLES Performing Organization Address City/[facility]/ZIP Code Phon e Number [facility] [address] LABS (ABNORMAL) CMV Antibody IgG [...] Phon e Number [facility] [address] [place] [address] [place] [facility] LABS (ABNORMAL) Comprehensive metabolic panel (02/02/2014 2:07 PM CDT) [facility] gist Method Time Signature Sodium 141 133 - 144 [facility] mmol/L [facility] LABS Potassium 4.2 3.4 - 5.3 [facility] mmol/L [place] [facility] LABS Chloride 101 94 - 109 [facility] mmol/L [facility] LABS Carbon Dioxide 26 20 - 32 [facility] mmol/L [facility] LABS Anion Gap 13 6 - 17 [facility] mmol/L [facility] LABS Glucose 112 (H) 60 - 99 [facility] mg/dL [facility] LABS Urea Nitrogen 42 (H) 7 - 30 [facility] mg/dL [facility] LABS Creatinine 6.03 (H) 0.66 - [facility] 1.25 [facility]ITY mg/dL CAMPUS LABS GFR Estimate 9 (L) >60 [facility] mL/min/1. [place] [address] LABS GFR Estimate If 11 (L) >60 [facility] Black mL/min/1. [address] LABS Calcium 9.9 8.5 - [facility] 10.4 UN[facility]ERSITY mg/dL CAMPUS LABS Bilirubin Total 0.7 0.2 - 1.3 [facility] mg/dL [facility] LABS Albumin 4.2 3.3 - 4.9 [facility] g/dL [facility] LABS Protein Total 7.5 6.8 - 8.8 [facility] g/dL [facility] LABS Alkaline 88 40 - 150 [facility] Phosphatase U/L [facility] LABS ALT 33 0 - 70 [facility] U/L [facility] LABS AST 18 0 - 45 [facility] U/L [facility] LABS Specimen Anatomical Collection Method Collection Time Receive d Time (Source) Location / / Volume Laterality Blood specimen 02/02/2014 2:07 PM 014 2:08 (specimen) CDT PM CDT Caitlin Owens MD LAB - BLOOD ORDERABLES Performing Organization Address City/State/ZIP Code Phon e Number [facility] [address] [place] [address] [place] [facility] LAB[facility] (ABNORMAL) CBC with platelets differential (02/02/2014 2:07 PM CDT) [facility] gist Method Time Signature WBC 6.3 4.0 - [facility] 11.0 [place] 10e9/L [place] LABS RBC Count 3.71 (L) 4.4 - 5.9 [facility] 10e12/L [facility] LABS Hemoglobin 11.5 (L) 13.3 - [facility] 17.7 g/dL [facility] LABS Hematocrit 33.7 (L) 40.0 - [facility] 53.0 % [facility] LABS MCV 91 78 - 100 [facility] fl [facility] LABS MCH 31.0 26.5 - [facility] 33.0 pg [facility] LABS MCHC 34.1 31.5 - [facility] 36.5 g/dL [facility] LABS RDW 14.0 10.0 - [facility] 15.0 % [facility] LABS Platelet Count 110 (L) 150 - 450 [facility] 10e9/L [facility] LABS Diff Method Automated [facility] Method [facility] LABS % Neutrophils 52.4 % [facility] LABS % Lymphocytes 32.1 % [facility] LAB[facility] % Monocytes 7.9 % [facility] LABS % Eosinophils 7.1 % [facility] LABS % Basophils 0.3 % [facility] LABS % Immature 0.2 % [facility] Granulocytes [facility] LABS Absolute 3.3 1.6 - 8.3 [facility] Neutrophil 10e9/L [facility] LABS Absolute 2.0 0.8 - 5.3 [facility] Lymphocytes 10e9/L [facility] LABS Absolute 0.5 0.0 - 1.3 [facility] Monocytes 10e9/L [facility]S Absolute 0.5 0.0 - 0.7 [facility] Eosinophils 10e9/L [facility]S Absolute 0.0 0.0 - 0.2 [facility] Basophils 10e9/L [facility] LABS Abs Immature 0.0 0 - 0.4 [facility] Granulocytes 10e9/L [facility] LABS Specimen Anatomical Collection Method Collection Time Receive d Time (Source) Location / / Volume Laterality Blood specimen 02/02/2014 2:07 PM 014 2:08 (specimen) CDT PM CDT Caitlin Owens MD LAB - BLOOD ORDERABLES Performing Organization Address City/State/ZIP Code Phon e Number [facility] [address] [place] [address] [facility] LABS Creatinine urine calculation only (02/02/2014 2:00 PM CDT) P athologist Signature Creatinine 88 mg/dL [facility] Urine [place] LABS Specimen Anatomical Collection Method Collection Time Receive d Time (Source) Location / / Volume Laterality 02/02/2014 2:00 PM 4 2:12 CDT PM CDT Caitlin Owens MD LAB - URINE ORDERABLES Performing Organization Address City/State/ZIP Code Phon e Number [facility] [address] [place] [address] [facility] LABS (ABNORMAL) Urine culture (02/02/2014 2:00 PM CDT) Component Value Ref Test Analysis Performed At [facility] Range Method Time Signature Specimen Midstream Urine [facility] Description [facility] LABS Special Specimen received [facility] Requests in preservative MICROBIOLOGY Culture Micro <10,000 colonies/mL Gram pos itive cocci No further identification Susceptibility [facility] testing not routinely done RI CROBIOLOGY <10,000 colonies/mL Strain 2 Gram positive [...] MICRO GENERAL ORDERABL ES Performing Organization Address City/[facility]/ZIP Code Phon e Number [facility] [address] [place] [address] [facility] LABS [facility] MICROBIOLOGY (ABNORMAL) Protein random urine (02/02/2014 2:00 PM CDT) [facility] gist Method Time Signature Protein Random 1.89 g/L [facility] Urine [facility] LABS Protein Total 2.15 (H) 0 - 0.2 [facility] Urine g/gr g/g Cr [facility] LABS Specimen Anatomical Collection Method Collection Time Receive d Time (Source) Location / / Volume Laterality Urine specimen URINE SPECIMEN 02/02/2014 2:00 PM 02/02 2:12 (specimen) OBTAINED BY CLEAN CDT PM CDT CATCH PROCEDURE / Unknown Caitlin Owens MD LAB - URINE ORDERABLES Performing Organization Address City/[facility]/ZIP Code Phon e Number [facility] [address] LABS (ABNORMAL) Routine UA with microscopic (02/02/2014 2:00 PM CDT) Patholo gist Method Time Signature Color Urine Light Yellow [facility] LABS Appearance Urine Clear [facility] LABS Glucose Urine 70 (A) NEG mg/dL [facility] LABS Bilirubin Urine Negative NEG [facility] LABS Ketones Urine Negative NEG mg/dL [facility] UNIVERSITY [place] [facility] Specific [place] 1.008 1.003 - [facility] Urine 1.035 [facility] [place] [facility] Blood U[facility] Negative [facility]G [facility] pH Urine 8.0 (H) 5.0 - 7.0 [facility] pH [facility] LABS Protein Albumin 100 (A) NEG mg/dL [facility] Urine [facility] LAB[facility] Urobilinogen Normal 0.0 - 2.0 [facility] mg/dL mg/dL [facility] LABS Nitrite Urine Negative NEG [facility]US LABS Leukocyte Negative NEG [facility] Esterase Urine [facility] LABS Source Clean catch [facility] urine [facility] LABS WBC Urine 1 0 - [...] Phon e Number [facility] [address] [place] [address] [facility] LABS (ABNORMAL) Glucose by meter (02/02/2014 [...] 12-lead, tracing only (02/02/2014 1:58 PM CDT) [facility] gist Method Time Signature [...] dose, When verbally ordered by the prescriber. [place] throat with 1-4 sprays 5 minutes prior [...] 11:15 PM CDT 0.4 mg HYDROmorphone (DILAUDID) [employer] 1 mg/mL Shift Total 02/03/2014 6:24 AM CDT [employer] dose (mg): 0.1, Max [employer] dose (mg): 0.2, Lockout Interval (min): 10 minutes, [employer] Continuous Rate (mg/hr): CONTINUOUS RATE IS NOT [...] dose, When verbally ordered by the prescriber. [place] throat with 1-4 sprays 5 minutes prior [...] (Not Gi isael - Provider: Lynne Gatica [facility] - Reason: Other - Comment: [...] 450 mg (CANCELED) 1203 (Given - Provider: Ganehs Covarrubias RN) Routine, 450 mg, Oral, EVERY [...] draw. documented in this encounter Care Teams Ip Network Architect Relationship Specialty Start Date End Date Momo Forbes PCP - General Family Practice 01/02/14 [facility] [address] [place] [address] Ingrid Santana, RN Registered Nurse Transplant 02/10/12 documented as of this encounter
--- OUTSIDE RECORDS SUMMARY | 2022-06-28 13:25 | XMS_ITS | Encounter Summary ---
:1950 Author Organization [place] Address [address] [place] [address] Care Team Providers Name Role Phone Ingrid Santana RN Unavailable Unavailable Momo Forbes Primary Care Provider Encounter Details Date Type Department Care Team Description 02/02/2014 Results Only LABORATORY RESULTS Migel Merchant MD 420 [facility] 195 [place], [place] [address] (Wo rk) Social History Tobacco Use Types [...] I Single Antigen (02/02/2014 6:51 PM CDT) [facility] Method Time Signature SA1 Test SA [...] Phon e Number [facility] LABORATORY Immunology/Histocompatabil [place], [place] [address] [facility] 500 [facility] [address] Building, Room 3-580 HISTOTRAC documented in this encounter Visit Diagnoses Not on filedocumented in this encounter Care Teams Medical Cost Consultant Relationship Specialty Start Date End Date Momo Forbes PCP - General Family Practice 01/02/14 [facility] [address] [place] [address] Ingrid Santana, RN Registered Nurse Transplant 02/10/12 documented as of this encounter
--- OUTSIDE RECORDS SUMMARY | 2022-06-28 13:25 | XMS_ITS | Encounter Summary ---
:1950 Author Organization [place] Address [address] [facility] [place] [address] Care Team Providers Name Role Phone Ingrid Santana RN Unavailable Unavailable Momo Forbes Primary Care Provider Reason for Visit Auth/Cert - Closed Specialty Diagnoses / Procedures Referred By Contact Refer red To Contact Med Surg Diagnoses end stage renal disease dialysis End stage renal failure on dialysis Renal Failure Uu U7a Procedures TRANSPLANT KIDNEY RECIPIENT DONOR 500 [place] [address] Phone: Referral ID Status Reason Start Date Expiration Date Visits Requ ested Visits Authorized [id number] Closed 02/04/2014 08/03/2014 1 1 Encounter Details Date Type Department Care Team Description 02/02/2014 Anesthesia Event [facility] Joseph Ivey MD XXX RESIGNED XXX 2450 [place] [address] PeriOp Services Leigh Ann Blank MD 420 [facility] 294 [place], [place] [address] 500 [place] [address] Anesthesia Record Procedure Summary Procedure [...] Hand Inez Mckeon Sara E RN Saima, FIRE FIGHTER [employer]PORT RETIRED ETT 02/02/14; 1753; Airway 02/02/14 1753 [...] Take 1 tablet by mouth daily. B tvxzadx-Z-kxyst acid (NEPHROCAPS) 1 MG capsule Take 1 [...] benefits and alternatives discussed with: patient or contact representative. Possibility of blood products discussed. I [...] plan were discussed with patient/family or family contact representative. All questions were answered and there was agreement to proceed. History & Physical Review Leigh Ann Blank MD Anesthesiology CA-2 [phone] 2:47 PM February 02, 2014 Diego Guthrie was seen and examined and the medical history was reviewed with him. The anesthetic plan was discussed, risks were explained and questions were answered. He agrees to proceed as discussed. I have reviewed this note and agree with the assessment and plan. Joseph Ivey M.D. Staff Anesthesiologist [phone] 02/02/2014 4:48 PM documented in this encounter [...] Date/Time Associated Diagnosis Comme nts [facility] AN [place] PA CENTRAL Routine 02/02/2014 6:19 PM Re [...] passed easily into [facility]. Hyunnarm Nazia DO [place] ANESTHESIA documented in this encounter Visit Diagnoses [...] Intra-op documented in this encounter Care Teams Posting Machine Operator Relationship Specialty Start Date End Date Momo Forbes PCP - General [facility] Practice 01/02/[address] [address] Ingrid Santana, RN Registered Nurse Transplant 02/10/12 documented as of this encounter
--- OUTSIDE RECORDS SUMMARY | 2022-06-28 13:25 | XMS_ITS | Encounter Summary ---
:1950 Author Organization [place] Address [facility] [place] [address] Care Team Providers Name Role Phone Ingrid Santana RN Unavailable Unavailable Momo Forbes Primary Care Provider Encounter Details Date Type Department Care Team Description 02/02/2014 Abstract The Transplant [facility] 2nd Floor, Clinic [address]A [address] [phone] Social History Tobacco Use [...] filedocumented in this encounter Care Teams Ict Quality Assurance Engineer Relationship Specialty Start Date End Date Momo Forbes PCP - General Family Practice 01/02/14 [facility] [address] [place] [address] Ingrid Santana, BOGDAN Registered Nurse Transplant 02/10/12 documented as of this encounter
--- OUTSIDE RECORDS SUMMARY | 2022-06-28 13:25 | XMS_ITS | Encounter Summary ---
:1950 Author Organization [place] Address [address] [place] [address] Care Team Providers Name Role Phone Ingrid Santana RN Unavailable Unavailable Momo Forbes Primary Care Provider Encounter Details Date Type Department Care Team Description 02/02/2014 Results Only LABORATORY RESULTS Migel Merchant MD [address] [place] [address] 195 [place], [place] [address] (Wo rk) Social History Tobacco Use Types [...] T/B Crossmatch Auto (02/02/2014 6:51 PM CDT) [facility] Method Time Signature Crossmatch Donor:ELINOR GUTHRIE ?Crossmatch [...] Phon e Number [facility] HLA LABORATORY Immunology/Histocompatabil [place], [place] [address] [facility] 500 [facility] [address] Building, Room 3-580 HISTOTRAC documented in this encounter Visit Diagnoses Not on filedocumented in this encounter Care Teams Clerical Methods Analyst Relationship Specialty Start Date End Date Momo Forbes PCP - General Family Practice 01/02/14 [facility] 1999 [place] [address] Ingrid Santana, RN Registered Nurse Transplant 02/10/12 documented as of this encounter
--- OUTSIDE RECORDS SUMMARY | 2022-06-28 13:25 | XMS_ITS | Encounter Summary ---
:1950 Author Organization [place] Address [address] [place] [address]. [place] [address] Care Team Providers Name Role Phone Ingrid Santana RN Unavailable Unavailable Momo Forbes Primary Care Provider Reason for Visit Reason Comments Transplant Donor culture results Encounter Details Date Type Department Care Team Description 02/04/2014 Documentation Only The Transplant Gladis Yeboah, Transplant (Donor 2nd Floor, Clinic 2A RN culture results) [address] [phone] Social History Tobacco Use Types Packs/Day Years [...] and urine cultures have been uploaded into righTune. Notification sent to Dr. Rust and Dr. Hernandes. documented in this encounter Plan of Treatment Not on filedocumented as of this encounter Visit Diagnoses Not on filedocumented in this encounter Care Teams Social Welfare Research Worker Relationship Specialty Start Date End Date Momo Forbes PCP - General Family Practice 01/02/14 [facility] 2000 [place] [address] Ingrid Santana, RN Registered Nurse Transplant 02/10/12 documented as of this encounter
--- OUTSIDE RECORDS SUMMARY | 2022-06-28 13:25 | XMS_ITS | Encounter Summary ---
:1950 Author Organization [place] Address [address] [place] [address]. [place] [address] Care Team Providers Name Role Phone Ingrid Santana RN Unavailable Unavailable Momo Forbes Primary Care Provider Reason for Visit Reason Comments Transplant Encounter Details Date Type Department Care Team Description 02/02/2014 Orders Only Transplant Surgery [place], End stage renal failure Clinic BOGDAN Mae on dialysis (H) 2nd Floor, Clinic 2A (Primary Dx) [address] [phone] Social History Tobacco Use Types Packs/Day Years [...] disease documented in this encounter Care Teams Computer Hardware Designer Relationship Specialty Start Date End Date Momo Forbes PCP - General Family Practice 01/02/14 [facility] [address] [place] [address] Ingrid Santana, RN Registered Nurse Transplant 02/10/12 documented as of this encounter
--- OUTSIDE RECORDS SUMMARY | 2022-06-28 13:25 | XMS_ITS | Encounter Summary ---
:1950 Author Organization [place] Address [facility] [place] [address] Care Team Providers Name Role Phone Ingrid Santana RN Unavailable Unavailable Mmoo Forbes Primary Care Provider Encounter Details Date Type Department Care Team Description 02/02/2014 Results Only LABORATORY RESULTS Migel Merchant MD [address] [place] [address] 195 [place], [place] [address] (Wo rk) Social History Tobacco Use Types [...] T/B Crossmatch Allo (02/02/2014 6:51 PM CDT) [facility] Method Time Signature Crossmatch Donor:[id number], ?Crossmatch Date:02/02/2014 HISTOTRAC Result (Note) Serum Date [...] Phon e Number [facility] HLA LABORATORY Immunology/Histocompatabil [place], [place] [address] ity [facility] C[facility] [address], Room 3-580 HISTOTRAC documented in this encounter Visit Diagnoses Not on filedocumented in this encounter Care Teams Clinical Technologist Relationship Specialty Start Date End Date Momo Forbes PCP - General Family Practice 01/02/14 [facility] [address] [place] [address] Ingrid Santana, RN Registered Nurse Transplant 02/10/12 documented as of this encounter
--- OUTSIDE RECORDS SUMMARY | 2022-06-28 13:25 | XMS_ITS | Encounter Summary ---
:1950 Author Organization [place] Address [address] [place] [address] Care Team Providers Name Role Phone Ingrid Santana RN Unavailable Unavailable Momo Forbes Primary Care Provider Encounter Details Date Type Department Care Team Description 02/02/2014 Results Only LABORATORY RESULTS Migel Merchant MD 420 [facility] 195 [place], [place] [address] (Wo rk) Social History Tobacco Use Types [...] II Single Antigen (02/02/2014 6:51 PM CDT) [facility] gist Method Time Signature SA2 Test SA [...] Phon e Number [facility] HLA LABORATORY Immunology/Histocompatabil [place], [place] [address] [facility] 500 [facility] [address] Building, Room 3-580 HISTOTRAC documented in this encounter Visit Diagnoses Not on filedocumented in this encounter Care Teams Creel Clerk Relationship Specialty Start Date End Date Momo Forbes PCP - General Family Practice 01/02/14 [facility] [address] [place] [address] Ingrid Santana, RN Registered Nurse Transplant 02/10/12 documented as of this encounter
--- OUTSIDE RECORDS SUMMARY | 2022-06-28 13:26 | XMS_ITS | Encounter Summary ---
:1950 Author Organization [place] Address [facility] [place] [address] Care Team Providers Name Role Phone Toña [...] HLA Lukasz Class I Single Antigen (04/16/2013) [facility] gist Method Time Signature [...] Phon e Number [facility] HLA LABORATORY Immunology/Histocompatabil [place], [place] [address] ity [facility] [address] Building, Room 3-580 HISTOTRAC documented in this encounter Visit Diagnoses Not on filedocumented in this encounter Care Teams Feed In Worker Relationship Specialty Start Date End Date Toña Jones MD PCP - General Nephrology 11/25/11 01/01/14 Ingrid Santana, RN Registered Nurse Transplant 02/10/12 documented as of this encounter
--- OUTSIDE RECORDS SUMMARY | 2022-06-28 13:26 | XMS_ITS | Encounter Summary ---
:1950 Author Organization [place] Address [address] [place] [address] Care Team Providers Name Role Phone Toña Jones MD Primary Care Provider Ingrid Santana RN Unavailable Unavailable Encounter Details Date Type Department Care Team Description 07/30/2013 Results Only LABORATORY RESULTS Mingo Dangelo MD [address] [place] [address] [facility] 195 [place] [address] (Wo rk) Social History Tobacco [...] HLA Lukasz Class I Single Antigen (07/30/2013) [facility] gist Method Time Signature SA1 [...] / Volume Laterality 07/30/2013 07/31/2013 2:10 PM TAR HEAT EXCHANGER CLEANER Mingo Dangelo MD LAB - IMMUNOLOGY ORDERABLES Performing Organization Address City/State/ZIP Code Phon e Number [facility] HLA LABORATORY Immunology/Histocompatabil [place], [place] [address] ity [facility] [address] Building, Room 3-580 HISTOTRAC documented in this encounter Visit Diagnoses Not on filedocumented in this encounter Care Teams Grocery Associate Relationship Specialty Start Date End Date Toña Jones MD PCP - General Nephrology 11/25/11 01/01/14 Ingrid Santana, RN Registered Nurse Transplant 02/10/12 documented as of this encounter
--- OUTSIDE RECORDS SUMMARY | 2022-06-28 13:26 | XMS_ITS | Encounter Summary ---
:1950 Author Organization [place] Address [facility] [place] [address] Care Team Providers Name Role Phone Toña [...] HLA Lukasz Class II Single Antigen (04/16/2013) [facility] gist Method Time Signature SA2 Test [...] Phon e Number [facility] LAB[facility]AT[facility] Immunology/Histocompatabil [place], [place] [address] [facility] Ctr [address] Building, Room 3-580 HISTOTRAC documented in this encounter Visit Diagnoses Not on filedocumented in this encounter Care Teams Customs Compliance Manager Relationship Specialty Start Date End Date Toña Jones MD PCP - General Nephrology 11/25/11 01/01/14 Ingrid Santana, RN Registered Nurse Transplant 02/10/12 documented as of this encounter
--- OUTSIDE RECORDS SUMMARY | 2022-06-28 13:26 | XMS_ITS | Encounter Summary ---
:1950 Author Organization [place] Address [address] [place] [address] Care Team Providers Name Role Phone Toña Jones MD Primary Care Provider Ingrid Santana RN Unavailable Unavailable Encounter Details Date Type Department Care Team Description 11/05/2013 Results Only LABORATORY RESULTS Barbara Bradley MD [address] [place], [place] [address] Social History Tobacco Use [...] I Single Antigen (11/05/2013 7:20 AM CDT) [facility] gist Method Time Signature SA1 Test [...] Phon e Number [facility] HLA LABORATORY Immunology/Histocompatabil [place], [place] [address] ity [facility] C[facility] [address] Building, Room 3-580 HISTOTRAC documented in this encounter Visit Diagnoses Not on filedocumented in this encounter Care Teams Elevator Worker Relationship Specialty Start Date End Date Toña Jones MD PCP - General Nephrology 11/25/11 01/01/14 Ingrid Santana, RN Registered Nurse Transplant 02/10/12 documented as of this encounter
--- OUTSIDE RECORDS SUMMARY | 2022-06-28 13:26 | XMS_ITS | Encounter Summary ---
:1950 Author Organization [place] Address [address] [place] [address] Care Team Providers Name Role Phone Toña Jones MD Primary Care Provider Ingrid Santana RN Unavailable Unavailable Encounter Details Date Type Department Care Team Description 07/30/2013 Results Only LABORATORY RESULTS Mingo Dangelo MD [address] [place] [address] [facility] 195 [place] [address] (Wo rk) Social History Tobacco [...] HLA Lukasz Class II Single Antigen (07/30/2013) [facility] gist Method Time Signature SA2 [...] Location / / Volume Laterality 07/30/2013 07/31/2013 2:1 0 PM RAKE OPERATOR Mingo Dangelo MD LAB - IMMUNOLOGY ORDERABLES Performing Organization Address City/State/ZIP Code Phon e Number [facility] HLA LABORATORY Immunology/Histocompatabil [place], [place] [address] ity [facility] C[facility] [address] Building, Room 3-580 HISTOTRAC documented in this encounter Visit Diagnoses Not on filedocumented in this encounter Care Teams Oil Sprayer Relationship Specialty Start Date End Date Toña Jones MD PCP - General Nephrology 11/25/11 01/01/14 Ingrid Santana, RN Registered Nurse Transplant 02/10/12 documented as of this encounter
--- OUTSIDE RECORDS SUMMARY | 2022-06-28 13:26 | XMS_ITS | Encounter Summary ---
:1950 Author Organization [place] Address [address] [place] [address] Care Team Providers Name Role Phone Ingrid Santana RN Unavailable Unavailable Momo Forbes Primary Care Provider Encounter Details Date Type Department Care Team Description 01/21/2014 Results Only LABORATORY RESULTS Mingo Dangelo MD [facility] 195 [place] [address] (Wo rk) Social History Tobacco [...] HLA Lukasz Class II Single Antigen (01/21/2014) [facility] gist Method Time Signature SA2 Test [...] Phon e Number [facility] HLA LABORATORY Immunology/Histocompatabil [place], [place] [address] ity [facility] [address] Building, Room 3-580 HISTOTRAC documented in this encounter Visit Diagnoses Not on filedocumented in this encounter Care Teams Security Expert Relationship Specialty Start Date End Date Momo Forbes PCP - General Family Practice 01/02/14 [facility] [address] [place] [address] Ingrid Santana, RN Registered Nurse Transplant 02/10/12 documented as of this encounter
--- OUTSIDE RECORDS SUMMARY | 2022-06-28 13:26 | XMS_ITS | Encounter Summary ---
:1950 Author Organization [place] Address [address] [place] [address] Care Team Providers Name Role Phone Toña Jones MD Primary Care Provider Ingrid Santana RN Unavailable Unavailable Encounter Details Date Type Department Care Team Description 02/28/2013 Orders Only [facility] Molly Sanderson Organ transplant 500 [facility] candidate (Primary Dx) [place] [address] Social History Tobacco Use Types Packs/Day Years [...] status documented in this encounter Care Teams Clinical Product Manager Relationship Specialty Start Date End Date Toña Jones MD PCP - General Nephrology 11/25/11 01/01/14 Ingrid Santana RN Registered Nurse Transplant 02/10/12 documented as of this encounter
--- OUTSIDE RECORDS SUMMARY | 2022-06-28 13:26 | XMS_ITS | Encounter Summary ---
:1950 Author Organization [place] Address [facility] [place] [address] Care Team Providers Name Role Phone Toña [...] filedocumented in this encounter Care Teams Engineering And Operations Director Relationship Specialty Start Date End Date Toña Jones MD PCP - General Nephrology 11/25/11 01/01/14 Momo Forbes PCP - General Family Practice 01/02/[address] [place] [address] Ingrid Santana, RN Registered Nurse Transplant 02/10/12 documented as of this encounter
--- OUTSIDE RECORDS SUMMARY | 2022-06-28 13:26 | XMS_ITS | Encounter Summary ---
:1950 Author Organization [place] Address 2450 [facility] [place] [address] Care Team Providers Name Role Phone Toña [...] Ump Sot Surgery 2nd Floor, Clinic 2A [address] [phone] Referral ID Status Reason Start Date Expiration Date Visits Requ ested Visits Authorized [id number] Closed 12/10/2013 06/08/2014 1 1 Consultation - Closed Specialty Diagnoses / Procedures Referred By Contact Refer red To Contact Diagnoses Organ transplant candidate ESRD (end stage renal disease) on dialysis (H) DM (diabetes mellitus), type 2 (H) Zz Ump Sot Surgery [facility] Floor, [facility] [address]A [address] [phone] Referral ID Status Reason Start Date Expiration Date Visits Requ ested Visits Authorized [id number] Closed 12/10/2013 06/08/2014 1 1 Encounter Details Date Type Department Care Team Description 12/07/2013 Orders Only Transplant Surgery Nazia March LPN Organ transplant candidate (Primary Dx); Clinic Screening for other and unsp ecified cardiovascular conditions; 2nd Floor, Clinic 2A ESRD (end stage renal diseas e) on dialysis (H); Tommy Wilburn DM (madeleine betes mellitus), type 2 (H) [address] [phone] Social History Tobacco Use [...] uncontrolled documented in this encounter Care Teams Baker Relationship Specialty Start Date End Date Toña Jones MD PCP - General Nephrology 11/25/11 01/01/14 Ingrid Santana, RN Registered Nurse Transplant 02/10/12 documented as of this encounter
--- OUTSIDE RECORDS SUMMARY | 2022-06-28 13:26 | XMS_ITS | Encounter Summary ---
:1950 Author Organization [place] Address [facility] [place] [address] Care Team Providers Name Role Phone Toña [...] DM (madeleine betes mellitus), type 2 (H) [address] [phone] Social History Tobacco Use Types [...] uncontrolled documented in this encounter Care Teams Production Control Coordinating Clerk Relationship Specialty Start Date End Date Toña Jones MD PCP - General Nephrology 11/25/11 01/01/14 Ingrid Santana, RN Registered Nurse Transplant 02/10/12 documented as of this encounter
--- OUTSIDE RECORDS SUMMARY | 2022-06-28 13:26 | XMS_ITS | Encounter Summary ---
:1950 Author Organization [place] Address [address] [place] [address] Care Team Providers Name Role Phone Ingrid Santana RN Unavailable Unavailable Momo Frobes Primary Care Provider Encounter Details Date Type Department Care Team Description 01/20/2014 Orders Only [facility], [facility] jm [place] [address] [phone] [place] [address] 162 [place] [address] (Wo rk) Social History Tobacco [...] Results Tacrolimus level (02/15/2014 8:55 AM CDT) [facility] Method Time Signature Tacrolimus Last 02/14/2014 [facility] Dose 2030 [facility] Tacrolimus 5.9 5.0 - [facility] Level 15.0 ug/L [facility] Comment: Tacrolimus Reference Range Kidney Transplant [...] Phon e Number [facility] 500 [place], [place] [id number] [place] [address] LABS documented in this encounter Visit Diagnoses Not on filedocumented in this encounter Care Teams Dock Loader Relationship Specialty Start Date End Date Momo Forbes PCP - General Family Practice 01/02/14 [facility] [address] [place] [address] Ingrid Santana, RN Registered Nurse Transplant 02/10/12 documented as of this encounter
--- OUTSIDE RECORDS SUMMARY | 2022-06-28 13:26 | XMS_ITS | Encounter Summary ---
:1950 Author Organization [place] Address [facility] [place] [address] Care Team Providers Name Role Phone Toña [...] filedocumented in this encounter Care Teams Motor And Controls Tester Relationship Specialty Start Date End Date Toña Jones MD PCP - General Nephrology 11/25/11 01/01/14 Momo Forbes PCP - General Family Practice 01/02/[address] [place] [address] Ingrid Santana, RN Registered Nurse Transplant 02/10/12 documented as of this encounter
--- OUTSIDE RECORDS SUMMARY | 2022-06-28 13:26 | XMS_ITS | Encounter Summary ---
:1950 Author Organization [place] Address [address] [place] [address] Care Team Providers Name Role Phone Toña Jones MD Primary Care Provider Ingrid Santana RN Unavailable Unavailable Encounter Details Date Type Department Care Team Description 11/05/2013 Results Only LABORATORY RESULTS Barbara Bradley MD [address] [place], [place] [address] Social History Tobacco Use [...] II Single Antigen (11/05/2013 7:20 AM CDT) [facility] gist Method Time Signature SA2 Test [...] Phon e Number [facility] HLA LABORATORY Immunology/Histocompatabil [place], [place] [address] ity [facility] C[facility] [address] Building, Room 3-580 HISTOTRAC documented in this encounter Visit Diagnoses Not on filedocumented in this encounter Care Teams Mate Fourth Relationship Specialty Start Date End Date Toña Jones MD PCP - General Nephrology 11/25/11 01/01/14 Ingrid Santana RN Registered Nurse Transplant 02/10/12 documented as of this encounter
--- OUTSIDE RECORDS SUMMARY | 2022-06-28 13:26 | XMS_ITS | Encounter Summary ---
:1950 Author Organization [place] Address [address] [place] [address] Care Team Providers Name Role Phone Ingrid Santana RN Unavailable Unavailable Momo Forbes Primary Care Provider Reason for Visit Reason Onset Date Comments Pre Visit Planning - Done 01/30/2014 EKG: pre op: [age] yo M, here for continued clearance for possib le kidney txp. Encounter Details Date Type Department Care Team Description 01/30/2014 PRE VISIT [facility] Barbara Bradley Pre Visit Planning - Physicians Heart MD Monae Done (EKG: pre op: 63 [address] [place], [place] [address] continued clearance 4th Floor, Clinic 4B for possible kidney [facility] txp.) [address] [place] [phone] Social History Tobacco Use Types Packs/Day Years [...] On HD since Aug 2011. No past OK, stress tests or coronary angiogorams. No chest [...] disease documented in this encounter Care Teams Blade Aligner Relationship Specialty Start Date End Date Momo Forbes PCP - General Family Practice 01/02/14 [facility] [address] [place] [address] Ingrid Santana, RN Registered Nurse Transplant 02/10/12 documented as of this encounter
--- OUTSIDE RECORDS SUMMARY | 2022-06-28 13:26 | XMS_ITS | Encounter Summary ---
:1950 Author Organization [place] Address [facility] [place] [address] Care Team Providers Name Role Phone Toña Jones MD Primary Care Provider Ingrid Santana RN Unavailable Unavailable Reason for Visit Reason Onset Date Comments Transplant 12/19/2013 Kidney waitlist appo intments Encounter Details Date Type Department Care Team Description 12/19/2013 Telephone [facility] Trans[facility] Abstract, Provider Transplant (Kidney 2nd Floor, Clinic 2A waitlist appointments) [address] [phone] Social History Tobacco Use Types Packs/Day Years [...] in this encounter Care Teams Professor Of Architecture Relationship Specialty Start Date End Date Toña Jones MD PCP - General Nephrology 11/25/11 01/01/14 Siers, Ingrid A, RN Registered Nurse Transplant 02/10/12 documented as of this encounter
--- OUTSIDE RECORDS SUMMARY | 2022-06-28 13:26 | XMS_ITS | Encounter Summary ---
:1950 Author Organization [place] Address [address] [place] [address] Care Team Providers Name Role Phone Ingrid Santana RN Unavailable Unavailable Momo Forbes Primary Care Provider Encounter Details Date Type Department Care Team Description 01/21/2014 Results Only LABORATORY RESULTS Mingo Dangelo MD [address] [facility] [address] [facility] [address] [place] [address] (Wo rk) Social History Tobacco [...] Results HLA Flow T/B Crossmatch Allo (01/21/2014) [facility] gist Method Time Signature Crossmatch Donor:[id number], ?Crossmatch Date:02/02/2014 HISTOTRAC Result (Note) Serum Date [...] e Number [facility] LABORAT[facility] Immunology/Histocompatabil [place], [place] [address] [address] [facility] [address] [facility] [address] Building, Room 3-580 HISTOTRAC documented in this encounter Visit Diagnoses Not on filedocumented in this encounter Care Teams Vp Of [employer] Relationship Specialty Start Date End Date Momo Forbes PCP - General Family Practice 01/02/14 [facility] [address] [place] [address] Ingrid Santana, RN Registered Nurse Transplant 02/10/12 documented as of this encounter
--- OUTSIDE RECORDS SUMMARY | 2022-06-28 13:26 | XMS_ITS | Encounter Summary ---
:1950 Author Organization [place] Address [address] [place] [address] Care Team Providers Name Role Phone Ingrid Santana RN Unavailable Unavailable Momo Forbes Primary Care Provider Reason for Visit Reason Onset Date Comments Transplant 02/02/2014 Kidney Offer Encounter Details Date Type Department Care Team Description 02/02/2014 Telephone Transplant Surgery [facility] Tran spl[facility] (Kidney Clinic RN Offer) 2nd Floor, Clinic [address]A [address] [phone] Social History Tobacco Use Types [...] filedocumented in this encounter Care Teams Manager Pe Relationship Specialty Start Date End Date Momo Forbes PCP - General Family Practice 01/02/[address] [address] Ingrid Santana, RN Registered Nurse Transplant 02/10/12 documented as of this encounter
--- OUTSIDE RECORDS SUMMARY | 2022-06-28 13:26 | XMS_ITS | Encounter Summary ---
:1950 Author Organization [place] Address [address] [place] [address] Care Team Providers Name Role Phone Ingrid Santana RN Unavailable Unavailable Momo Forbes Primary Care Provider Encounter Details Date Type Department Care Team Description 01/21/2014 Results Only LABORATORY RESULTS Mingo Dangelo MD [address] [facility] [address] [facility] [address] [place] [address] (Wo rk) Social History Tobacco [...] HLA Lukasz Class I Single Antigen (01/21/2014) [facility] gist Method Time Signature [...] Phon e Number [facility] HLA LABORATORY Immunology/Histocompatabil [place], [place] [address] ity [facility] [address] Building, Room 3-580 HISTOTRAC documented in this encounter Visit Diagnoses Not on filedocumented in this encounter Care Teams Maintenance Of Way Superintendent Relationship Specialty Start Date End Date Momo Forbes PCP - General Family Practice 01/02/14 [facility] [address] [place], [place] [id number] Ingrid Santana, RN Registered Nurse Transplant 02/10/12 documented as of this encounter
--- OUTSIDE RECORDS SUMMARY | 2022-06-28 13:26 | XMS_ITS | Encounter Summary ---
:1950 Author Organization [facility] Address [address] [place] [address] Care Team Providers Name Role Phone Ingrid Santana RN Unavailable Unavailable Momo Forbes Primary Care Provider Reason for Visit Auth/Cert - Closed Specialty Diagnoses / Procedures Referred By Contact Refer red To Contact Med Surg Diagnoses end stage renal disease dialysis End stage renal failure on dialysis Renal Failure Uu U7a Procedures TRANSPLANT KIDNEY RECIPIENT DONOR [address] [place] [address] Phone: Referral ID Status Reason Start Date Expiration Date Visits Requ ested Visits Authorized [id number] Closed 02/04/2014 08/03/2014 1 1 Encounter Details Date Type Department Care Team Description 02/02/2014 Surgery [facility] Migel Merchant , Kidney Transplant , PeriOp Services ureteral stent [address] [place] [address] [place] [address] [place], [place] [address] (Wo rk) Surgery Details Date/Time Status Location [...] Physician Discharge Summary Patient ID: Diego Guthrie [id number] 63 year old 1950 Admit date: 02/02/2014 [...] Take 1 tablet by mouth daily. B jeukhqn-X-jjwnx acid (NEPHROCAPS) 1 MG capsule Take 1 [...] located on the second floor of the [facility] next to the Transplant Clinic. Your [...] of these appointments you will meetwith a high density finishing operator and meet your marketing production coordinator. Your nurse will also be in communication with your surgeon and high density finishing operator as needed. The direct number to the [facility] is [phone]. In the [facility] [...] the hospital. This will be located in [facility] transplant surgery clinic on the second floor.Your transplant surgeon is: Dr. Merchant. You have a ureteral stent in place which needs to be removed in 4-6 weeks. If a corsetier does not contact you for this, please contact your marketing production coordinator. If you have modesta in place, they will be removed in 3 weeks after operation. Notify your coordinator if you have pain over your kidney, fever greater than 101.5F, or decreased urine output. Notify your coordinator immediately if you are ever unable to take your immunosuppressive medications for any reason. Director Blood Bank [phone] Diet recommendations post-transplant: Heart healthy dietary habits terminal make up operator (low saturated/trans fat, low sodium). High [...] >2. He can be seen by any shingle inspector in the outpatient setting for coordination. Continue metoprolol 25 po bid until he is r e-evaluated. We did attempt inpatient REFUGIO guided cardioversion, but the patient developed significant bleeding while on heparin. José Miguel Alvarez M.D. Switchboard Wirer Joseph Quintana MD - 02/08/2014 12:35 PM [...] Dr. Quintana. Sina Robison MD Nephrology Fellow [phone] Attestation: This patient has been seen and [...] Ramires RN - 02/07/2014 2:25 PM CDT Lcsw D: Diego Guthrie 63 year old male POD #5 s/p DDKT for ESRD 2/[address] Diaz note today. Per Dr Diaz, pt will most likely be ready for d/c to home tomorrow and will return to [facility] for 5 days at 0700. Pt will [...] does not know where the [facility] or transplant clinic is, I told him and he replied I will find it. Pt does not care which [facility] agency will follow him--There are only 2 to choose from, so [phone]/ --I called and left a message with Estrella Fletcher and I fax'd his records tothem--pt will need start of care approx Thursday 02/15. Pt is new on warfarin and I called his PCP's office and they have INR nurses Tuesday-Tuesday their fax # is [phone] (when N visits are completed --pt will call main clinic # to schedule INR draws). 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 I verified his address and phone #(is his cell) on the facesheet. Pt has not met his OP manager progressive care: Leandro Kahn, yet--I sent Leandro an in basket message today-with plan. A: possible d/c to home Tuesday P: see above-will follow and will call [facility] to confirm they can accept him. [...] Dr. Quintana. Sina Robison MD Nephrology Fellow [phone] Attestation: This patient has been seen and [...] assistance Medical Decision Making: Medium Subsequent visit 11854 (moderate level decision making) PATO/Fellow/Resident Provider: Adeline [...] Hernandez MD - 02/06/2014 4:25 PM CDT [facility] Cardiology Progress Note I have seen and [...] Dr. Quintana. Sina Robison MD Nephrology Fellow [phone] Attestation: This patient has been seen and [...] Dr. Quintana. Sina Robison MD Nephrology Fellow [phone] Attestation: This patient has been seen and [...] REPLACEMENT ONLY ??? insulin (regular) Stopped (02/05/14 1407) Shiva Kahn RN - 02/05/2014 4:47 PM CDT RETAIL SALES MERCHANDISER NOTE I met with the patient and his yesterday at [facility] PCU-6B (telemetry unit) to discuss transition from inpatient to outpatient care following kidney translantation. 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 Michael, Joseph Hernandez MD - 02/05/2014 11:16 AM CDT [facility] Cardiology Progress Note I have seen and [...] plan for REFUGIO cardioversion tomorrow, NPO at [place] (orders placed) -- continue heparin and initiate [...] 02/02/2014. Pt lives alone in [place] though reports that his girlfriend in in the process of moving in with him. Pt girlfriend, Tete, will be present when pt returns home but she works multimedia producer. Pt was on dialysis for 2 1/2 years prior to transplant. Pt works independently but reports that he currently has no income coming in. Pt has primary insurancethrough Medicare and Secondary insurance through [employer]. Pt has no co-pays for his immunosuppressants and a high out of pocket cost for Valcyte, SW to look into grants for pt for Valcyte. I: Met with pt to introduce this proposal manager writer and explain sw role and services available while inpatient in the hospital. Asked if pt had any questions or concerns and completed an assessment of psychosocialneeds post transplant. Provided education about expectations and requirements post discharge like fol low up in the [facility]. Pt is unsure yet if he will [...] arise prior to discharge. Roopa Castro, CECY, STACKING MACHINE OPERATOR Indu Calixto MD - 02/05/2014 1:50 [...] PT - 02/04/2014 4:57 PM CDT 02/04/14 1414 Quick Adds Type of Visit Initial PT Evaluation Chemical Recovery Operator Chemical Recovery Operator Present no Language Lebanese Living Environment (R) Lives With alone Living Arrangements ([facility]) Home Accessibility no concerns Number [...] up when pt is available. CECY Kearns, [facility] [phone] phone [phone] pager Joseph Quintana MD - 02/04/2014 11:51 [...] Dr. Quintana. Sina Robison MD Nephrology Fellow [phone] Attestation: This patient has been seen and [...] for this basename: PTHI, in the last 58476 hours IRON STUDIES No results found for this basename: IRON, FEB, IRONSAT, THEE, in the last 04391 hours Imaging: All imaging studies reviewed by [...] or equal to 12.0 mlU/mL. Adeline Diaz [phone] Attestation: The patient has been seen and [...] donor kidney transplant, with stent on 02/02/14. [employer] donor. Graft function:uncertain, Cr slightly up. Slow [...] . Medical Decision Making: Medium Subsequent visit 75407 (moderate level decision making) PATO/Fellow/Resident Provider: Caitlin [...] note and orders. Migel Merchant MD, PhD gsa coordinator Abdominal Organ Transplantation Carmelita Rosario, RN - 02/03/2014 9:38 AM CDT Patient removed from the OS waitlist after donor kidney transplant. OS ID is [id number]. Rafaela Cardona - 02/03/2014 9:17 AM CDT [...] followed general diet. Patient reports good appetite/intake PHOTO EDITOR, no nutrition issues/concnerns. CURRENT NUTRITION ORDERS - [...] DDKT ASSESSED NUTRITION NEEDS: Estimated Energy Needs: 2274-3202+ kcals (25-30+ Kcal/Kg) Justification: maintenance post-transplant Estimated [...] (6- 8 weeks). Rec follow heart-healthy diet terminal make up operator. Implementation Nutrition education: Provided instruction on post-transplant diet with discussion regarding protein sources and high protein needs in acute post-tx phase. Reviewed recommendations to follow low fat/lowsodium diet terminal make up operator and discussed heart healthy diet tips. [...] adjustment. Rafaela Cardona RD, LD Weekend Coverage [phone] Jose Aguirre MD - 02/03/2014 4:57 AM [...] Doing well postoperatively. Pain: Controlled by Dilaudid REGISTRATION SPECIALIST Diet: NPO tonight Volume Status: Borderline low UOP, continue MIVF, 0.9 % NS 500 cc bolus given for low UOP, CVP not accurate, systolic in 100-110 Recheck hemoglobin and potassium normal. Rest of the plan per primary team. Will continue to follow. Jose Aguirre MD PGY-1.................02/03/2014 Surgery Cross Cover Pager:[phone] documented in this encounter H&P Notes Caitlin [...] 1 tablet by mouth daily. ??? B qtyttyy-J-bxurf acid (NEPHROCAPS) 1 MG capsule Take 1 [...] Transplant Fellow, Caitlin Morales MD Surgery Cross-Cover Pager:[phone] Addendum: Donor 59 yo F [employer], CVA, h/o HTN, CMV+, EBV+. Kidney bx [...] note and orders. Migel Merchant MD, PhD gsa coordinator Abdominal Organ Transplantation documented in this encounter [...] 1 tablet by mouth daily. ??? 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 José Miguel Alvarez MD Switchboard Wirer Pager: [phone] February 04, 2014 Kaitlynn Leon MD - 02/03/2014 9:30 AM CDT Nephrology Initial Consult February 03, 2014 Diego Guthrie Date of : 1950 Date of Admission:02/02/2014 Primary care provider: Momo Forbes Requesting physician: Migel Merchant MD ASSESSMENT AND RECOMMENDATIONS: 1. DDKT - [employer]ICE -59 yo women; slow graft function-no immediate need for dialysis , but may require tomorrow if UO does not worm picker. We will monitor Induction with Thymo/Cellcept [...] h/o type 2 Dm, who received DDKT ([employer]) on 02/02/2014 donor kidney had severe atherosclerotic [...] ??? Cataract iol, rt/lt both eyes MEDICATIONS: PHOTO EDITOR Meds Prior to Admission medications Medication Sig Last Dose Taking? Auth Provider Calcium Carbonate-Vitamin D (CALCIUM + D PO) Take by mouth daily. Reported, Patient lisinopril (PRINIVIL,ZESTRIL) 40 MG tablet Take 40 mg by mouth 2 times daily. Reported, Patient METOPROLOL SUCCINATE PO Take by mouth daily. Reported, Patient aspirin 81 MG tablet Take 1 tablet by mouth daily. Reported, Patient B fbzrpfz-B-znzyn acid (NEPHROCAPS) 1 MG capsule Take 1 [...] Intravenous Central line Once ??? HYDROmorphone Intravenous REGISTRATION SPECIALIST Infusion Meds ??? 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 Alvin Diego Cardiovascular Disease Fellow [phone] Patient seen and examined by me with [...] cardiovascular point view. Jarad Cullen MD, PhD aJrad Cullen MD, PhD [phone] documented in this encounter Nursing Notes Gretta Mary RN - 02/02/2014 11:[address] Owens with Transplant Surgery notified of stat lab results. Magnesium replaced. Dr. Blank with Anesthesia reviewed chest x-ray. CVC not deep enough to give accurate CVP readings, however all lumens aspirate blood well. Patient is ok to transfer to unit 6B per [facility]. documented in this encounter Miscellaneous Notes Plan [...] Report called to Saima in [facility]. Left facility accompanied by s.o at 1600. [...] Diet recommendations post-transplant: Heart healthy dietary habits penitentiary (low saturated/trans fat, low sodium). High protein diet x 8 weeks. Practice food safety precautions - no fish/seafood x 3 weeks. Inez Luevano MS, RD, LD Pager [phone] Pharmacy-Immunosuppression Monitoring - Em Vasquez [facility] [...] will continue to follow. Em Vasquez, Pharm.D., [facility] Pager [phone] Plan of Care - Annmarie Colby RN [...] increased fluid intake, urine color is becoming wire taper( tea color/bloody- >dark sy/tea color). Incisional pain [...] medical conditions. Patient would like to use [facility] to manage all medications. Medcard: [...] Specialty Pharmacy review: Discussed the benefits of [facility] and Diego has enrolled. Also gave him supplies (blood pressure cuff, thermometer, and pill box) Other concerns: No other concerns at this time. No further questions for this pharmacist. Inez Cox, Student Pharmacist Street Light Inspector [facility] [address] [place] [id number] Cayetano Olivera, Pharmacist [facility] [phone] Pharmacy-Anticoagulation Service - Teresa Wright [facility] [...] melonie hard time making full sentences. When proposal manager writer came on shift at 8pm patient [...] room. Pharmacy-Admission Medication History - Teresa Wright [facility] - 02/04/2014 11:54 AM CDT Admission medication history interview status for the 02/02/2014 admission is complete. See [facility] admission navigator for allergy information, prior to admission medications and immunization status. Medication history interview sources (including written lists, pill bottles, clinic record):Patient Medication history source reliability:Good Primary pharmacy:[facility] phone number: [phone] Changes made to PHOTO EDITOR medication list (reason) Added: Vitamin D 1,000 [...] at Unknown time Yes Reported, Patient B ccxxxlq-C-fkxjb acid (NEPHROCAPS) 1 MG capsule Take 1 [...] 45 minutes and remains in A-fib via cardiac nurse specialist. Repeat EKG around 1000 showed continued Afibl. [...] as appropriate. Plan of Care - Martina Bucriaga RN - 02/03/2014 3:08 PM CDT Problem: [...] TID once diet adv. Report taken from [facility] on 6B; patient transferred to from [...] algorithm 2, 1 unit now. Pt still wbjizrijw1S NC to maintain sats above 90 % [...] Intermittent sharp R lower abd pain. Dilaudid REGISTRATION SPECIALIST encouraged, increased to 0.2//.2. R lower abd [...] 0200 made 20cc/hr, at 0300 made 30cc/hr. [place]/red tinged urine. MIVF @ 125/hr. VSS. HR 70s, BPs 100s-120s/60s. No new orders at this time. Will continue to monitor. Plan of Care - Tasia Andrade RN - 02/03/2014 12:00 AM CDT Pt arrived to 6B from PACU, s/p DDKT. A&O x3-4. VSS. [place]/red urine output. Small amt drainage on abd [...] to Type 2 Diabetes. The patient received [facility] offer for a Donor [employer] (expanded criteria donor) kidney transplant. After discussing [...] The UNOS number of the donor is [id number]. The crossmatch was done prospectively; and the [...] reconstruction. FACULTY SURGEON: Mig[facility] Merchant M.D., Ph.D. FELLOW/CLEAN ROOM OPERATOR SURGEON: Caitlin Owens MD fellow ANESTHESIA: None VERIFICATION: Prior to incision, I verified the donor ABO and recipient ABO. After the donor organ arrived to the operating room and prior to anastamosis, I visually verified that the donor identification, blood type, and other vital data were compatible with the recipient. FINDINGS: Donor type: [employer] (expanded criteria donor) Organ: kidney Graft Injury: [...] Signature Tacrolimus Not Provided [facility] Last Dose [facility] Tacrolimus 10.0 5.0 - [facility] Level 15.0 ug/L [facility] Comment: Tacrolimus Reference [...] - BLOOD ORDERABLES Performing Organization Address City/[facility]/ZIP Code Phon e Number [facility] [address] LABS (ABNORMAL) INR (02/08/2014 6:42 AM CDT) P athologist Signature INR 1.28 (H) 0.86 - 1.14 [facility] LABS Specimen Anatomical Collection Method Collection Time Receive d Time (Source) Location / / Volume Laterality Blood specimen 02/08/2014 6:42 AM 014 6:43 (specimen) CDT AM CDT Omaira Chavez PA-C LAB - BLOOD ORDERABLES Performing Organization Address City/State/ZIP Code Phon e Number [facility] [address] LABS (ABNORMAL) Basic metabolic panel (02/08/2014 6:42 AM CDT) Patholo gist Method Time Signature Sodium 144 133 - 144 [facility] mmol/L [facility] Potassium 3.9 3.4 - 5.3 [facility] mmol/L [facility] Chloride 110 (H) 94 - 109 [facility] mmol/L [facility] Carbon Dioxide 25 20 - 32 [facility] mmol/L [facility] Anion Gap 8 6 - 17 [facility] mmol/L [facility] Glucose 144 (H) 60 - 99 [facility] mg/dL [facility] Urea Nitrogen 66 (H) 7 - 30 [facility] mg/dL [facility] Creatinine 2.38 (H) 0.66 - [facility] 1.25 mg/dL [facility] GFR Estimate 28 (L) >60 [facility] mL/min/1.7 [place] m2 CAMPUS LABS GFR Estimate If 34 (L) >60 [facility] Black mL/min/1.7 [place] [address] CAMPUS LABS Calcium 9.4 8.5 - 10.4 [facility] mg/dL [facility] Specimen Anatomical Collection Method Collection Time Receive d Time (Source) Location / / Volume Laterality Blood specimen 02/08/2014 6:42 AM 014 6:43 (specimen) CDT AM CDT Omaira Chavez PA-C LAB - BLOOD ORDERABLES Performing Organization Address City/[facility]/ZIP Code Phon e Number [address] LABS Phosphorus (02/08/2014 6:42 AM CDT) P athologist Signature Phosphorus 2.5 2.5 - 4.5 [facility] mg/dL [place] LABS Specimen Anatomical Collection Method Collection Time Receive d Time (Source) Location / / Volume Laterality Blood specimen 02/08/2014 6:42 AM 014 6:43 (specimen) CDT AM CDT Omaira Chavez PA-C LAB - BLOOD ORDERABLES Performing Organization Address City/[facility]/ZIP Code Phon e Number [address] LABS Magnesium (02/08/2014 6:42 AM CDT) athologist Signature Magnesium 2.2 1.6 - 2.3 [facility] mg/dL [place] LABS Specimen Anatomical Collection Method Collection Time Receive d Time (Source) Location / / Volume Laterality Blood specimen 02/08/2014 6:42 AM 014 6:43 (specimen) CDT AM CDT Omaira Chavez PA-C LAB - BLOOD ORDERABLES Performing Organization Address City/[facility]/ZIP Code Phon e Number [address] LABS (ABNORMAL) CBC with platelets differential (02/08/2014 6:42 AM CDT) Patholo gist Method Time Signature WBC 4.8 4.0 - [facility] 11.0 [place] 10e9/L [place] [facility] RBC Count 2.56 (L) 4.4 - 5.9 [facility] 10e12/L [facility] Hemoglobin 7.8 (L) 13.3 - [facility] 17.7 g/dL [facility] Hematocrit 23.5 (L) 40.0 - [facility] 53.0 % [facility] MCV 92 78 - 100 [facility] fl [facility] MCH 30.5 26.5 - [facility] 33.0 pg [facility] [place] [facility] MCHC 33.2 31.5 - [facility] 36.5 g/dL [facility] RDW 14.5 10.0 - [facility] 15.0 % [facility] Platelet Count 70 (L) 150 - 450 [facility] 10e9/L [facility] Diff Method Automated [facility] Method [facility] % Neutrophils 86.3 % [facility] LABS % Lymphocytes 3.1 % [facility] LABS % Monocytes 9.4 % [facility] LABS % Eosinophils 1.0 % [facility] % Basophils 0.0 % [facility] % Immature 0.2 % [facility] Granulocytes [facility] Absolute 4.1 1.6 - 8.3 [facility] Neutrophil 10e9/L [facility] Absolute 0.2 (L) 0.8 - 5.3 [facility] Lymphocytes 10e9/L [facility] Absolute 0.5 0.0 - 1.3 [facility] Monocytes 10e9/L [facility] Absolute 0.1 0.0 - 0.7 [facility] Eosinophils 10e9/L [facility] Absolute 0.0 0.0 - 0.2 [facility] Basophils 10e9/L [facility] Abs Immature 0.0 0 - 0.4 [facility] Granulocytes 10e9/L [facility] Specimen Anatomical Collection Method Collection Time Receive d Time (Source) Location / / Volume Laterality Blood specimen 02/08/2014 6:42 AM 014 6:43 (specimen) CDT AM CDT Omaira Chavez PA-C LAB - BLOOD ORDERABLES Performing Organization Address City/State/ZIP Code Phon e Number [facility] [address] [place], [place] [id number] [place] [address] LABS (ABNORMAL) Glucose by meter (02/07/2014 10:18 PM CDT) P athologist Signature Glucose 233 (H) 60 - 99 POINT OF CARE mg/dL TEST, GLUCOSE Specimen Anatomical Collection Method Collection Time Receive d Time (Source) Location / / Volume Laterality 02/07/2014 10:18 02/07/2014 PM CDT 10:20 PM CDT Migel Merchant MD LAB - BEAKER POCT Performing Organization Address [facility] Phon e Number FV [...] - BEAKER POCT Performing Organization Address [facility] Phon e Number FV [...] - BEAJ POCT Performing Organization Address [facility] Phon e Number FV [...] - BEAJ POCT Performing Organization Address [facility] Phon e Number FV [...] 7:50 CDT AM CDT Migel Merchant MD [facility] POCT Performing Organization Address City/State/ZIP Code [...] Signature INR 1.25 (H) 0.86 - 1.14 [facility] LABS Specimen Anatomical Collection Method Collection Time Receive d Time (Source) Location / / Volume Laterality Blood specimen 02/07/2014 4:23 AM 014 4:24 (specimen) CDT AM CDT Omaira Chavez PA-C LAB - BLOOD ORDERABLES Performing Organization Address City/State/ZIP Code Phon e Number [id number] [place] [address] LABS (ABNORMAL) Basic metabolic panel (02/07/2014 4:23 AM CDT) [facility] gist Method Time Signature Sodium 143 133 - 144 [facility] mmol/L [facility] Potassium 4.1 3.4 - 5.3 [facility] mmol/L [facility] Chloride 109 94 - 109 [facility] mmol/L [facility] Carbon Dioxide 24 20 - 32 [facility] mmol/L [facility] Anion Gap 10 6 - 17 [facility] mmol/L [facility] Glucose 185 (H) 60 - 99 [facility] mg/dL [facility] Urea Nitrogen 77 (H) 7 - 30 [facility] mg/dL [facility] Creatinine 3.02 (H) 0.66 - [facility] 1.25 mg/dL [facility] GFR Estimate 21 (L) >60 [facility] mL/min/1.7 [place] m2 CAMPUS LABS GFR Estimate If 26 (L) >60 [facility] Black mL/min/1.7 [place] [address] CAMPUS LABS Calcium 9.3 8.5 - 10.4 [facility] mg/dL [facility] [facility] Specimen Anatomical Collection Method Collection Time Receive d Time (Source) Location / / Volume Laterality Blood specimen 02/07/2014 4:23 AM 014 4:24 (specimen) CDT AM CDT Omaira Chavez PA-C LAB - BLOOD ORDERABLES Performing Organization Address City/[facility]/ZIP Code Phon e Number [address] LABS Phosphorus (02/07/2014 4:23 AM CDT) P athologist Signature Phosphorus 3.5 2.5 - 4.5 [facility] mg/dL [place] [facility] Specimen Anatomical Collection Method Collection Time Receive d Time (Source) Location / / Volume Laterality Blood specimen 02/07/2014 4:23 AM 014 4:24 (specimen) CDT AM CDT Omaira Chavez PA-C LAB - BLOOD ORDERABLES Performing Organization Address City/State/ZIP Code Phon e Number [address] LABS Magnesium (02/07/2014 4:23 AM CDT) P athologist Signature Magnesium 2.1 1.6 - 2.3 [facility] mg/dL [place] [facility]S Specimen Anatomical Collection Method Collection Time Receive d Time (Source) Location / / Volume Laterality Blood specimen 02/07/2014 4:23 AM 014 4:24 (specimen) CDT AM CDT Omaira Chavez PA-C LAB - BLOOD ORDERABLES Performing Organization Address City/State/ZIP Code Phon e Number [address] LABS (ABNORMAL) CBC with platelets differential (02/07/2014 4:23 AM CDT) Patholo gist Method Time Signature WBC 2.7 (L) 4.0 - [facility] 11.0 [place] [place] 10e9/L [place] LABS RBC Count 2.80 (L) 4.4 - 5.9 [facility] 10e12/L [facility] LABS Hemoglobin 8.5 (L) 13.3 - [facility] 17.7 g/dL [facility] LABS Hematocrit 25.8 (L) 40.0 - [facility] 53.0 % [facility] LABS MCV 92 78 - 100 [facility] fl [facility] LABS MCH 30.4 26.5 - [facility] 33.0 pg [facility] LABS MCHC 32.9 31.5 - [facility] 36.5 g/dL [facility] LABS RDW 14.5 10.0 - [facility] 15.0 % [facility] LABS Platelet Count 77 (L) 150 - 450 [facility] 10e9/L [facility] LABS Diff Method Automated [facility] Method [facility] LABS % [facility]ils 87.5 % [facility] % Lymphocytes 3.8 % [facility] % Monocytes 8.7 % [facility] % Eosinophils 0.0 % [facility] % Basophils 0.0 % [facility] % Immature 0.0 % [facility] Granulocytes [facility] LABS Absolute 2.3 1.6 - 8.3 [facility] Neutrophil 10e9/L [facility] LABS Absolute 0.1 (L) 0.8 - 5.3 [facility] Lymphocytes 10e9/L [facility] LABS Absolute 0.2 0.0 - 1.3 [facility] Monocytes 10e9/L [facility] LABS Absolute 0.0 0.0 - 0.7 [facility] Eosinophils 10e9/L [facility] LABS Absolute 0.0 0.0 - 0.2 [facility] Basophils 10e9/L [facility] LABS Abs Immature 0.0 0 - 0.4 [facility] Granulocytes 10e9/L [facility] LABS Specimen Anatomical Collection Method Collection Time Receive d Time (Source) Location / / Volume Laterality Blood specimen 02/07/2014 4:23 AM 014 4:24 (specimen) CDT AM CDT Omaira Chavez PA-C LAB - BLOOD ORDERABLES Performing Organization Address City/State/ZIP Code Phon e Number [id number] [place] [address] LABS (ABNORMAL) Hemoglobin A1c (02/07/2014 4:23 AM CDT) Analysis Performed At Patho logist Time Signature Hemoglobin A1C 6.1 (H) 4.3 - 6.0 [facility] % [facility] LABS Specimen Anatomical Collection Method Collection Time Receive d Time (Source) Location / / Volume Laterality Blood specimen 02/07/2014 4:23 AM 014 4:24 (specimen) CDT AM CDT Omaira Chavez PA-C LAB - BLOOD ORDERABLES Performing Organization Address City/State/ZIP Code Phon e Number [address] [address] [facility] LABS (ABNORMAL) Glucose by meter (02/06/2014 [...] 8.8 (L) 13.3 - 17.7 [facility] g/dL [place] [facility]S Specimen Anatomical Collection Method Collection Time Receive d Time (Source) Location / / Volume Laterality Blood specimen 02/06/2014 4:59 PM 014 5:12 (specimen) CDT PM CDT Omaira Chavez PA-C LAB - BLOOD ORDERABLES Performing Organization Address City/[facility]/ZIP Code Phon e Number [facility] [address] LABS (ABNORMAL) Glucose by meter (02/06/2014 12:01 PM CDT) athologist Signature Glucose 181 (H) 60 - 99 POINT OF CARE mg/dL TEST, GLUCOSE Specimen Anatomical Collection Method Collection Time Receive d Time (Source) Location / / Volume Laterality 02/06/2014 12:01 02/06/2014 PM CDT 12:05 PM CDT Migel Merchant MD LAB - BEAKER POCT Performing Organization Address City/[facility]/ZIP Code Phon e Number FV POINT OF CARE TEST, GLUCOSE POINT OF CARE TEST, GLUCOSE (ABNORMAL) Partial thromboplastin time (02/06/2014 5:57 AM CDT) athologist Signature PTT 154 (HH) 22 - 37 sec [facility] LABS Comment: Critical Value called to and read back Whitney HODGSON 6B RN AT 0642. PW Specimen Anatomical Collection Method Collection Time Receive d Time (Source) Location / / Volume Laterality 02/06/2014 5:57 AM 4 6:03 CDT AM CDT Adeline Diaz MD LAB - BLOOD ORDERABLES Performing Organization Address City/[facility]/ZIP Code Phon e Number [facility] [address] [place], [place] [phone] [place] [address] LABS Heparin Xa (10a) Level (02/06/2014 5:57 AM CDT) athologist Signature Heparin 10A 0.92 IU/mL [place] [...] - BLOOD ORDERABLES Performing Organization Address City/[facility] Code Phon e Number [facility] [address] LABS (ABNORMAL) INR (02/06/2014 5:57 AM CDT) P athologist Signature INR 1.32 (H) 0.86 - 1.14 [facility] LABS Specimen Anatomical Collection Method Collection Time Receive d Time (Source) Location / / Volume Laterality Blood specimen 02/06/2014 5:57 AM 014 6:03 (specimen) CDT AM CDT Omaira Chavez PA-C LAB - BLOOD ORDERABLES Performing Organization Address City/State/ZIP Code Phon e Number [facility] [address] LABS (ABNORMAL) Basic metabolic panel (02/06/2014 5:57 AM CDT) Patholo gist Method Time Signature Sodium 142 133 - 144 [facility] mmol/L [facility] LABS Potassium 4.7 3.4 - 5.3 [facility] mmol/L [facility] LABS Chloride 106 94 - 109 [facility] mmol/L [facility] LABS Carbon Dioxide 28 20 - 32 [facility] mmol/L [facility] LABS Anion Gap 8 6 - 17 [facility] mmol/L [facility] LABS Glucose 196 (H) 60 - 99 [facility] mg/dL [facility] LABS Urea Nitrogen 71 (H) 7 - 30 [facility] mg/dL [facility] LABS Creatinine 3.96 (H) 0.66 - [facility] 1.25 mg/dL [facility] [place] LAB[facility] GFR Estimate 15 (L) >60 [facility] mL/min/1.7 [facility] [place] [facility]2 [facility] LABS GFR Estimate If 19 (L) >60 [facility] Black mL/min/1.7 [place] [place] m2 [facility]AMP[facility] LABS Calcium 9.4 8.5 - 10.4 [facility] mg/dL [facility] LABS Specimen Anatomical Collection Method Collection Time Receive d Time (Source) Location / / Volume Laterality Blood specimen 02/06/2014 5:57 AM 014 6:03 (specimen) CDT AM CDT Omaira Chavez PA-C LAB - BLOOD ORDERABLES Performing Organization Address City/State/ZIP Code Phon e Number [facility] [address] LABS Phosphorus (02/06/2014 5:57 AM CDT) P athologist Signature Phosphorus 4.5 2.5 - 4.5 [facility] mg/dL [place] [facility]S Specimen Anatomical Collection Method Collection Time Receive d Time (Source) Location / / Volume Laterality Blood specimen 02/06/2014 5:57 AM 014 6:03 (specimen) CDT AM CDT Omaira Chavez PA-C LAB - BLOOD ORDERABLES Performing Organization Address City/State/ZIP Code Phon e Number [facility] [address] LABS Magnesium (02/06/2014 5:57 AM CDT) P athologist Signature Magnesium 1.9 1.6 - 2.3 [facility] mg/dL [place] [facility] Specimen Anatomical Collection Method Collection Time Receive d Time (Source) Location / / Volume Laterality Blood specimen 02/06/2014 5:57 AM 014 6:03 (specimen) CDT AM CDT Omaira Chavez PA-C LAB - BLOOD ORDERABLES Performing Organization Address City/State/ZIP Code Phon e Number [facility] [address] [place], [place] [phone] [place] [address] LABS (ABNORMAL) CBC with platelets differential (02/06/2014 5:57 AM CDT) Patholo gist Method Time Signature WBC 5.1 4.0 - [facility] 11.0 [facility] 10e9/L [place] [facility] RBC Count 3.13 (L) 4.4 - 5.9 [facility] 10e12/L [facility] LABS Hemoglobin 9.6 (L) 13.3 - [facility] 17.7 g/dL [facility] LABS Hematocrit 29.0 (L) 40.0 - [facility] 53.0 % [facility] LABS MCV 93 78 - 100 [facility] fl [facility] LABS MCH 30.7 26.5 - [facility] 33.0 pg [facility] LABS MCHC 33.1 31.5 - [facility] 36.5 g/dL [facility] LABS RDW 14.5 10.0 - [facility] 15.0 % [facility] LABS Platelet Count 85 (L) 150 - 450 [facility] 10e9/L [facility] LABS Diff Method Automated [facility] Method [facility] LABS % Neutrophils 86.0 % [facility] LABS % Lymphocytes 5.1 % [facility] LABS % Monocytes 8.7 % [facility] LABS % [facility]osinophils 0.0 % [facility] % Basophils 0.0 % [facility] LABS % Immature 0.2 % [facility] Granulocytes [facility] LABS Absolute 4.4 1.6 - 8.3 [facility] Neutrophil 10e9/L [facility] LABS Absolute 0.3 (L) 0.8 - 5.3 [facility] Lymphocytes 10e9/L [facility] LABS Absolute 0.4 0.0 - 1.3 [facility] Monocytes 10e9/L [facility] LABS Absolute 0.0 0.0 - 0.7 [facility] Eosinophils 10e9/L [facility] LABS Absolute 0.0 0.0 - 0.2 [facility] Basophils 10e9/L [facility] LABS Abs Immature 0.0 0 - 0.4 [facility] Granulocytes 10e9/L [facility] LABS Specimen Anatomical Collection Method Collection Time Receive d Time (Source) Location / / Volume Laterality Blood specimen 02/06/2014 5:57 AM 014 6:03 (specimen) CDT AM CDT Omaira Chavez PA-C LAB - BLOOD ORDERABLES Performing Organization Address City/State/ZIP Code Phon e Number [facility] [address] [place] [address] [facility] LABS (ABNORMAL) Lipid panel reflex to direct LDL (02/06/2014 5:57 AM CDT) P athologist Signature Cholesterol 126 <200 mg/dL [facility] LABS Comment: LDL Cholesterol is the primary guide to therapy. The NCEP recommends further evaluation of: patients with cholesterol greater than 200 mg/dL if additional risk facto rs are present, cholesterol greater than 240 mg/dL, triglycerides greater than 1 50 mg/dL, or HDL less than 40 mg/dL. Triglycerides 100 0 - 150 mg/dL [facility] [place] LABS HDL Cholesterol 35 (L) >40 mg/dL [facility] LABS LDL Cholesterol Calculated 71 0 - 129 mg/dL [facility] LABS Comment: LDL Cholesterol is the primary guide to therapy: LDL-cholesterol goal in high risk patients is <100 mg/dL and in very high risk patients is <70 mg/dL. VLDL-Cholesterol 20 0 - 30 mg/dL [facility] Cholesterol/HDL Ratio 3.6 0.0 - 5.0 [facility] [facility] Specimen Anatomical Collection Method Collection Time Receive d Time (Source) Location / / Volume Laterality Blood specimen 02/06/2014 5:57 AM 014 6:03 (specimen) CDT AM CDT Omaira Chavez PA-C LAB - BLOOD ORDERABLES Performing Organization Address City/State/ZIP Code Phon e Number [facility] [address] LABS Tacrolimus level (02/06/2014 5:57 AM CDT) Patholo gist Method Time Signature Tacrolimus S Negative [facility] Last Dose [facility] LABS Tacrolimus 12.7 5.0 - [facility] Level 15.0 ug/L [facility] LABS Comment: Tacrolimus Reference [...] Number [facility] [address] [place] [address] [facility] LABS (ABNORMAL) Glucose by meter (02/06/2014 [...] (L) 13.3 - [facility] 17.7 g/dL [place] LABS Specimen Anatomical Collection Method Collection Time Receive d Time (Source) Location / / Volume Laterality Blood specimen 02/06/2014 1:02 AM 014 1:11 (specimen) CDT AM CDT Deysi Alicea MD LAB - BLOOD ORDERABLES Performing Organization Address City/State/ZIP Code Phon e Number [facility] [address] [place], [place] [phone] [place] [address] LABS (ABNORMAL) Glucose by meter (02/05/2014 10:23 PM CDT) P athologist Signature Glucose 254 (H) 60 - 99 POINT OF CARE mg/dL TEST, GLUCOSE Specimen Anatomical Collection Method Collection Time Receive d Time (Source) Location / / Volume Laterality 02/05/2014 10:23 02/05/2014 PM CDT 10:25 PM CDT Migel Merchant MD LAB - BEAKER POCT Performing Organization Address City/[facility] Code Phon e Number FV POINT [...] Address City/State/ZIP Code Phon e Number [address] [address] [facility] LABS (ABNORMAL) Glucose by meter (02/05/2014 [...] PM 4 3:00 CDT PM CDT Migel eMrchant MD LAB - [...] Signature INR 1.24 (H) 0.86 - 1.14 [facility] LABS Specimen Anatomical Collection Method Collection Time Receive d Time (Source) Location / / Volume Laterality Blood specimen 02/05/2014 12:04 4 (specimen) PM CDT 12:10 PM CDT Teresa Wright [facility] LAB - BLOOD ORDERABLES Performing Organization Address City/[facility]/ZIP Code Phon e Number [address] LABS (ABNORMAL) CBC with platelets (02/05/2014 12:04 PM CDT) Patholo gist Method Time Signature WBC 7.4 4.0 - 11.0 [facility] 10e9/L [facility] LABS RBC Count 3.31 (L) 4.4 - 5.9 [facility] 10e12/L [facility] LABS Hemoglobin 10.3 (L) 13.3 - [facility] 17.7 g/dL [facility] LABS Hematocrit 31.0 (L) 40.0 - [facility] 53.0 % [facility] LABS MCV 94 78 - 100 [facility] fl [facility] LABS MCH 31.1 26.5 - [facility] 33.0 pg [facility] LABS MCHC 33.2 31.5 - [facility] 36.5 g/dL [facility] LABS RDW 14.7 10.0 - [facility] 15.0 % [facility] LABS Platelet Count 91 (L) 150 - 450 [facility] 10e9/L [facility] LABS Specimen Anatomical Collection Method Collection Time Receive d Time (Source) Location / / Volume Laterality Blood specimen 02/05/2014 12:04 4 (specimen) PM CDT 12:10 PM CDT Omaira Chavez PA-C LAB - BLOOD ORDERABLES Performing Organization Address City/[facility]/ZIP Code Phon e Number [facility] [place] [address] [address] [facility] LABS (ABNORMAL) Glucose by meter (02/05/2014 11:25 AM CDT) P athologist Signature Glucose 190 (H) 60 - 99 POINT OF CARE mg/dL TEST, GLUCOSE Specimen Anatomical Collection Method Collection Time Receive d Time (Source) Location / / Volume Laterality 02/05/2014 11:25 02/05/2014 AM CDT 11:30 AM CDT Migel Merchant MD LAB - BEAKER POCT Performing Organization Address City/[facility]/ZIP Code Phon e Number FV POINT [...] LAB - BEAJ POCT Performing Organization Address City/[facility]/ZIP Code Phon e Number FV POINT [...] LAB - BEAJ POCT Performing Organization Address City/[facility]/ZIP Code Phon e Number FV POINT [...] Sodium 143 133 - 144 [facility] mmol/L [facility] LABS Potassium 4.3 3.4 - 5.3 [facility] mmol/L [facility] LABS Chloride 107 94 - 109 [facility] mmol/L [facility] LABS Carbon Dioxide 25 20 - 32 [facility] mmol/L [facility] LABS Anion Gap 10 6 - 17 [facility] mmol/L [facility] LABS Glucose 123 (H) 60 - 99 [facility] mg/dL [facility] LABS Urea Nitrogen 66 (H) 7 - 30 [facility] mg/dL [facility] LABS Creatinine 4.77 (H) 0.66 - [facility] 1.25 mg/dL [facility] LABS GFR Estimate 12 (L) >60 [facility] mL/min/1.7 [facility] [place] [facility] LABS GFR Estimate If 15 (L) >60 [facility] Black mL/min/1.7 [facility] [place] m2 [facility] LABS Calcium 9.4 8.5 - 10.4 [facility] mg/dL [facility] LABS Specimen Anatomical Collection Method Collection Time Receive d Time (Source) Location / / Volume Laterality Blood specimen 02/05/2014 7:02 AM 014 7:05 (specimen) CDT AM CDT Omaira Chavez PA-C LAB - BLOOD ORDERABLES Performing Organization Address City/[facility]/ZIP Code Phon e Number [address] LABS (ABNORMAL) Phosphorus (02/05/2014 7:02 AM CDT) P athologist Signature Phosphorus 5.7 (H) 2.5 - 4.5 [facility] mg/dL CAMPUS LABS Specimen Anatomical Collection Method Collection Time Receive d Time (Source) Location / / Volume Laterality Blood specimen 02/05/2014 7:02 AM 014 7:05 (specimen) CDT AM CDT Omaira Chavez PA-C LAB - BLOOD ORDERABLES Performing Organization Address City/[facility]/ZIP Code Phon e Number [address] [facility] LABS Magnesium (02/05/2014 7:02 AM CDT) P athologist Signature Magnesium 2.0 1.6 - 2.3 [facility] mg/dL [place] [facility] Specimen Anatomical Collection Method Collection Time Receive d Time (Source) Location / / Volume Laterality Blood specimen 02/05/2014 7:02 AM 014 7:05 (specimen) CDT AM CDT Omaira Chavez PA-C LAB - BLOOD ORDERABLES Performing Organization Address City/State/ZIP Code Phon e Number [facility] [address] [place] [address] [facility] LABS (ABNORMAL) CBC with platelets differential (02/05/2014 7:02 AM CDT) Patholo gist Method Time Signature WBC 8.9 4.0 - [facility] 11.0 [facility] 10e9/L [place] [facility] RBC Count 3.20 (L) 4.4 - 5.9 [facility] 10e12/L [facility] LABS Hemoglobin 9.7 (L) 13.3 - [facility] 17.7 g/dL [facility] LABS Hematocrit 30.0 (L) 40.0 - [facility] 53.0 % [facility] LABS MCV 94 78 - 100 [facility] fl [facility] LABS MCH 30.3 26.5 - [facility] 33.0 pg [facility] LABS MCHC 32.3 31.5 - [facility] 36.5 g/dL [facility] LABS RDW 14.6 10.0 - [facility] 15.0 % [facility] LABS Platelet Count 96 (L) 150 - 450 [facility] 10e9/L [facility] LABS Diff Method Automated [facility] Method [facility] LABS % Neutrophils 90.2 % [facility] LABS % Lymphocytes 4.4 % [facility] LABS % Monocytes 5.2 % [facility] LABS % Eosinophils 0.0 % [facility] LABS % Basophils 0.0 % [facility] LABS % Immature 0.2 % [employer] Granulocytes [facility] LABS Absolute 8.1 1.6 - 8.3 [facility] Neutrophil 10e9/L [facility] LABS Absolute 0.4 (L) 0.8 - 5.3 [facility] Lymphocytes 10e9/L [facility] LABS Absolute 0.5 0.0 - 1.3 [facility] Monocytes 10e9/L [facility] LABS Absolute 0.0 0.0 - 0.7 [facility] Eosinophils 10e9/L [facility] LABS Absolute 0.0 0.0 - 0.2 [facility] Basophils 10e9/L [facility] LABS Abs Immature 0.0 0 - 0.4 [facility] Granulocytes 10e9/L [facility] LABS Specimen Anatomical Collection Method Collection Time Receive d Time (Source) Location / / Volume Laterality Blood specimen 02/05/2014 7:02 AM 014 7:05 (specimen) CDT AM CDT Omaira Chavez PA-C LAB - BLOOD ORDERABLES Performing Organization Address City/State/ZIP Code Phon e Number [facility] [address] LABS (ABNORMAL) Parathormone intact (02/05/2014 7:02 AM CDT) Patholo gist Method Time Signature Parathyroid 362 (H) 12 - 72 [facility] Hormone Intact pg/mL [facility] LABS Specimen Anatomical Collection Method Collection Time Receive d Time (Source) Location / / Volume Laterality Blood specimen 02/05/2014 7:02 AM 014 7:05 (specimen) CDT AM CDT Sina Robison MD LAB - BLOOD ORDERABLES Performing Organization Address City/State/ZIP Code Phon e Number [address] LABS (ABNORMAL) Ferritin (02/05/2014 7:02 AM CDT) P athologist Signature Ferritin 932 (H) 20 - 300 [employer] [facility] ng/mL [place] LABS Specimen Anatomical Collection Method Collection Time Receive d Time (Source) Location / / Volume Laterality Blood specimen 02/05/2014 7:02 AM 014 7:05 (specimen) CDT AM CDT Sina Robison MD LAB - BLOOD ORDERABLES Performing Organization Address City/[facility]/ZIP Code Phon e Number [address] LABS (ABNORMAL) Iron and iron binding capacity (02/05/2014 7:02 AM CDT) Analysis Performed At Patho logist Time Signature Iron 119 35 - 180 [facility] ug/dL [facility] LABS Iron Binding 207 (L) 240 - 430 [facility] Cap ug/dL [facility] LABS Iron Saturation 58 (H) 15 - 46 % [employer] Index [facility] LABS Specimen Anatomical Collection Method Collection Time Receive d Time (Source) Location / / Volume Laterality Blood specimen 02/05/2014 7:02 AM 014 7:05 (specimen) CDT AM CDT Sina Robison MD LAB - BLOOD ORDERABLES Performing Organization Address City/State/ZIP Code Phon e Number [facility] [address] [place] [address] [facility] LABS (ABNORMAL) Glucose by meter (02/05/2014 6:59 AM CDT) P athologist Signature Glucose 123 (H) 60 - 99 POINT OF CARE mg/dL TEST, GLUCOSE Specimen Anatomical Collection Method Collection Time Receive d Time (Source) Location / / Volume Laterality 02/05/2014 6:59 AM 4 7:05 CDT AM CDT Migel LARES - ROBERT POCT Performing Organization Address City/[facility]/ZIP Code Phon e Number FV POINT [...] CDT Migel JONES POCT Performing Organization Address City/[facility]/ZIP Code Phon e Number FV POINT [...] LAB - BEAJ POCT Performing Organization Address City/[facility]/ZIP Code Phon e Number FV POINT [...] LAB - BEAJ POCT Performing Organization Address City/[facility]/ZIP Code Phon e Number FV POINT [...] Migel JONES POCT Performing Organization Address [facility] Phon e Number FV [...] - ROBERT POCT Performing Organization Address [facility] Phon e Number FV POINT OF CARE TEST, GLUCOSE POINT OF CARE TEST, GLUCOSE EKG 12-lead, complete (02/04/2014 11:09 PM CDT) [facility] gist Method Time Signature Interpretation ECG Click View RADIOLOGY Image link RESULTS to view waveform and result Specimen (Source) Anatomical Collection Method Collection Time Re ceived Time Location / / Volume Laterality 02/04/2014 11:09 PM CDT Chemo Carr MD ECG ORDERABLES Performing Organization Address [facility] Phon e Number RADIOLOGY RESULTS (ABNORMAL) Glucose by meter (02/04/2014 10:56 PM CDT) P athologist Signature Glucose 161 (H) 60 - 99 POINT OF CARE mg/dL TEST, GLUCOSE Specimen Anatomical Collection Method Collection Time Receive d Time (Source) Location / / Volume Laterality 02/04/2014 10:56 02/04/2014 PM CDT 11:00 PM CDT Migel JONES POCT Performing Organization Address [facility] Phon e Number FV [...] LAB - BEAJ POCT Performing Organization Address City/[facility]/ZIP Code Phon e Number FV POINT [...] LARES - BEAKER POCT Performing Organization Address City/[facility]/ZIP Code Phon e Number FV POINT OF CARE TEST, GLUCOSE POINT OF CARE TEST, GLUCOSE Troponin I (02/04/2014 7:10 PM CDT) athologist Signature Troponin I 0.016 0.000 - [facility] 0.034 ug/L CAMPUS LABS Specimen Anatomical Collection Method Collection Time Receive d Time (Source) Location / / Volume Laterality Blood specimen 02/04/2014 7:10 PM 014 7:23 (specimen) CDT PM CDT Adeline Diaz MD LAB - BLOOD ORDERABLES Performing Organization Address City/State/ZIP Code Phon e Number [address] [address] [facility] LABS (ABNORMAL) Glucose by meter (02/04/2014 7:01 PM CDT) P athologist Signature Glucose 157 (H) 60 - 99 POINT OF CARE mg/dL TEST, GLUCOSE Specimen Anatomical Collection Method Collection Time Receive d Time (Source) Location / / Volume Laterality 02/04/2014 7:01 PM 4 7:05 CDT PM CDT Migel Merchant MD LAB - BEAKER POCT Performing Organization Address [facility] Phon e Number FV [...] - BEAKER POCT Performing Organization Address [facility] Phon e Number FV [...] - BEAKER POCT Performing Organization Address [facility] Phon e Number FV [...] - BEAJ POCT Performing Organization Address [facility] Phon e Number FV [...] - BEAKER POCT Performing Organization Address [facility] Phon e Number FV [...] - BEAJ POCT Performing Organization Address [facility] Phon e Number FV POINT OF CARE TEST, GLUCOSE POINT OF CARE TEST, GLUCOSE Troponin I (02/04/2014 12:42 PM CDT) athologist Signature Troponin I 0.025 0.000 - [facility] 0.034 ug/L [place] LABS Specimen Anatomical Collection Method Collection Time Receive d Time (Source) Location / / Volume Laterality Blood specimen 02/04/2014 12:42 4 (specimen) PM CDT 12:45 PM CDT Adeline Diaz MD LAB - BLOOD ORDERABLES Performing Organization Address City/State/ZIP Code Phon e Number [facility] [address] [place] [address] [facility] LABS (ABNORMAL) Glucose by meter (02/04/2014 [...] CDT Migel JONES POCT Performing Organization Address City/State/[facility] Code Phon e Number FV POINT [...] EKG 12-lead, complete (02/04/2014 7:03 AM CDT) [facility] Method Time Signature Interpretation ECG Click [...] Troponin I ES <0.012 0.000 - [facility] 0.034 ug/L CAMPUS LABS Specimen Anatomical Collection Method Collection Time Receive d Time (Source) Location / / Volume Laterality 02/04/2014 5:49 AM 4 5:51 CDT AM CDT Caitlin Owens MD LAB - BLOOD ORDERABLES Performing Organization Address City/State/ZIP Code Phon e Number [phone] [place] [address] LABS (ABNORMAL) Basic metabolic panel (02/04/2014 5:49 AM CDT) [facility] Method Time Signature Sodium 142 133 - 144 [facility] mmol/L [facility] LABS Potassium 4.9 3.4 - 5.3 [facility] mmol/L [facility] LABS Chloride 107 94 - 109 [facility] mmol/L [facility] LABS Carbon Dioxide 23 20 - 32 [facility] mmol/L [facility] LABS Anion Gap 12 6 - 17 [facility] mmol/L [facility] LABS Glucose 151 (H) 60 - 99 [facility] mg/dL [facility] LABS Urea Nitrogen 57 (H) 7 - 30 [facility] mg/dL [facility] LABS Creatinine 5.94 (H) 0.66 - [facility] 1.25 mg/dL [facility] LABS GFR Estimate 10 (L) >60 [facility] mL/min/1.7 [place] m2 CAMPUS LABS GFR Estimate If 12 (L) >60 [facility] Black mL/min/1.7 [place] m2 CAMPUS LABS Calcium 9.4 8.5 - 10.4 [facility] mg/dL [facility] LABS Specimen Anatomical Collection Method Collection Time Receive d Time (Source) Location / / Volume Laterality Blood specimen 02/04/2014 5:49 AM 014 5:51 (specimen) CDT AM CDT Omaira Chavez PA-C LAB - BLOOD ORDERABLES Performing Organization Address City/[facility]/ZIP Code Phon e Number [address] LABS (ABNORMAL) Phosphorus (02/04/2014 5:49 AM CDT) P athologist Signature Phosphorus 6.3 (H) 2.5 - 4.5 [facility] mg[facility]dL [place] LABS Specimen Anatomical Collection Method Collection Time Receive d Time (Source) Location / / Volume Laterality Blood specimen 02/04/2014 5:49 AM 014 5:51 (specimen) CDT AM CDT Omaira Chavez PA-C LAB - BLOOD ORDERABLES Performing Organization Address City/State/ZIP Code Phon e Number [facility] [address] LABS Magnesium (02/04/2014 5:49 AM CDT) P athologist Signature Magnesium 2.1 1.6 - 2.3 [facility] mg/dL [place] LABS Specimen Anatomical Collection Method Collection Time Receive d Time (Source) Location / / Volume Laterality Blood specimen 02/04/2014 5:49 AM 014 5:51 (specimen) CDT AM CDT Omaira Chavez PA-C LAB - BLOOD ORDERABLES Performing Organization Address City/State/ZIP Code Phon e Number [facility] [address] [place] [address] [facility] (ABNORMAL) CBC with platelets differential (02/04/2014 5:49 AM CDT) [facility] gist Method Time Signature WBC 13.8 (H) 4.0 - [facility] 11.0 UN[facility]ERSITY 10e9/L CAMPUS LABS RBC Count 3.10 (L) 4.4 - 5.9 [facility] 10e12/L [facility] LABS Hemoglobin 9.5 (L) 13.3 - [facility] 17.7 g/dL [facility] LABS Hematocrit 28.7 (L) 40.0 - [facility] 53.0 % [facility] LABS MCV 93 78 - 100 [facility] fl [facility] LABS MCH 30.6 26.5 - [facility] 33.0 pg [facility] LABS MCHC 33.1 31.5 - [facility] 36.5 g/dL [facility] LABS RDW 14.6 10.0 - [facility] 15.0 % [facility] LABS Platelet Count 91 (L) 150 - 450 [facility] 10e9/L [facility] LABS Diff Method Automated [facility] Method [facility] LABS % Neutrophils 95.8 % [facility] LABS % Lymphocytes 1.2 % [facility] LABS % Monocytes 2.8 % [facility] LABS % Eosinophils 0.0 % [facility] LABS % Basophils 0.0 % [facility] LABS % Immature 0.2 % [facility] Granulocytes [facility] LABS Absolute 13.2 (H) 1.6 - 8.3 [facility] Neutrophil 10e9/L [facility] LABS Absolute 0.2 (L) 0.8 - 5.3 [facility] Lymphocytes 10e9/L [facility] LABS Absolute 0.4 0.0 - 1.3 [facility] Monocytes 10e9/L [facility] LABS Absolute 0.0 0.0 - 0.7 [facility] Eosinophils 10e9/L [facility] LABS Absolute 0.0 0.0 - 0.2 [facility] Basophils 10e9/L [facility] LABS Abs Immature 0.0 0 - 0.4 [facility] Granulocytes 10e9/L [facility] LABS Specimen Anatomical Collection Method Collection Time Receive d Time (Source) Location / / Volume Laterality Blood specimen 02/04/2014 5:49 AM 014 5:51 (specimen) CDT AM CDT Omaira Chavez PA-C LAB - BLOOD ORDERABLES Performing Organization Address City/State/ZIP Code Phon e Number [address] [address] [facility] LABS (ABNORMAL) Glucose by meter (02/04/2014 [...] LARES - BEAJ POCT Performing Organization Address City/[facility]/ZIP Code Phon e Number FV POINT [...] LAB - BEAJ POCT Performing Organization Address City/[facility]/ZIP Code Phon e Number FV POINT [...] - BEAKER POCT Performing Organization Address City/[facility]/ZIP Code Phon e Number FV POINT OF CARE TEST, GLUCOSE POINT OF CARE TEST, GLUCOSE Potassium (02/03/2014 10:16 PM CDT) P athologist Signature Potassium 4.8 3.4 - 5.3 [facility] mmol/L CAMPUS LABS Specimen Anatomical Collection Method Collection Time Receive d Time (Source) Location / / Volume Laterality Blood specimen 02/03/2014 10:16 4 (specimen) PM CDT 10:19 PM CDT Caitlin Owens MD LAB - BLOOD ORDERABLES Performing Organization Address City/State/ZIP Code Phon e Number [facility] [address] [place], [place] [phone] [place] [address] LABS (ABNORMAL) Hemoglobin (02/03/2014 10:16 PM CDT) P athologist Signature Hemoglobin 9.4 (L) 13.3 - 17.7 [facility] g/dL [place] LABS Specimen Anatomical Collection Method Collection Time Receive d Time (Source) Location / / Volume Laterality Blood specimen 02/03/2014 10:16 4 (specimen) PM CDT 10:19 PM CDT Caitlin Owens MD LAB - BLOOD ORDERABLES Performing Organization Address City/[facility]/ZIP Code Phon e Number [address] [address] [facility] LABS (ABNORMAL) Glucose by meter (02/03/2014 9:55 PM CDT) athologist Signature Glucose 167 (H) 60 - 99 POINT OF CARE mg/dL TEST, GLUCOSE Specimen Anatomical Collection Method Collection Time Receive d Time (Source) Location / / Volume Laterality 02/03/2014 9:55 PM 4 CDT 10:00 PM CDT Migel LARES - ROBERT POCT Performing Organization Address City/[facility]/ZIP Code Phon e Number FV POINT [...] Potassium 4.7 3.4 - 5.3 [facility] mmol/L CAMPUS LABS Specimen Anatomical Collection Method Collection Time Receive d Time (Source) Location / / Volume Laterality Blood specimen 02/03/2014 6:52 PM 014 6:53 (specimen) CDT PM CDT Caitlin Owens MD LAB - BLOOD ORDERABLES Performing Organization Address City/[facility]/ZIP Code Phon e Number [facility] [address] LABS (ABNORMAL) Hemoglobin (02/03/2014 6:52 PM CDT) athologist Signature Hemoglobin 9.6 (L) 13.3 - 17.7 [facility] g/dL CAMPUS LABS Specimen Anatomical Collection Method Collection Time Receive d Time (Source) Location / / Volume Laterality Blood specimen 02/03/2014 6:52 PM 014 6:53 (specimen) CDT PM CDT Caitlin Owens MD LAB - BLOOD ORDERABLES Performing Organization Address City/[facility]/ZIP Code Phon e Number [facility] [address] LABS (ABNORMAL) Glucose by meter (02/03/2014 6:00 PM CDT) athologist Signature Glucose 140 (H) 60 - 99 POINT OF CARE mg/dL TEST, GLUCOSE Specimen Anatomical Collection Method Collection Time Receive d Time (Source) Location / / Volume Laterality 02/03/2014 6:00 PM 4 6:05 CDT PM CDT Migel Merchant MD LAB - BEAJ POCT Performing Organization Address [facility]/ZIP Code Phon e Number FV POINT [...] - ROBERT POCT Performing Organization Address [facility] Phon e Number FV [...] - BEAJ POCT Performing Organization Address [facility] Phon e Number FV [...] - BEAJ POCT Performing Organization Address [facility] Phon e Number FV POINT OF CARE TEST, GLUCOSE POINT OF CARE TEST, GLUCOSE Potassium (02/03/2014 1:41 PM CDT) P athologist Signature Potassium 4.7 3.4 - 5.3 [facility] mmol/L CAMPUS LABS Specimen Anatomical Collection Method Collection Time Receive d Time (Source) Location / / Volume Laterality Blood specimen 02/03/2014 1:41 PM 014 1:43 (specimen) CDT PM CDT Caitlin Owens MD LAB - BLOOD ORDERABLES Performing Organization Address City/[facility]/ZIP Code Phon e Number [phone] [place] [address] LABS (ABNORMAL) Hemoglobin (02/03/2014 1:41 PM CDT) athologist Signature Hemoglobin 9.8 (L) 13.3 - 17.7 [facility] g/dL CAMPUS LABS Specimen Anatomical Collection Method Collection Time Receive d Time (Source) Location / / Volume Laterality Blood specimen 02/03/2014 1:41 PM 014 1:43 (specimen) CDT PM CDT Caitlin Owens MD LAB - BLOOD ORDERABLES Performing Organization Address [facility] Code Phon e Number [phone] [place] [address] LABS (ABNORMAL) Glucose by meter (02/03/2014 1:10 PM CDT) athologist Signature Glucose 135 (H) 60 - 99 POINT OF CARE mg/dL TEST, GLUCOSE Specimen Anatomical Collection Method Collection Time Receive d Time (Source) Location / / Volume Laterality 02/03/2014 1:10 PM 4 1:15 CDT PM CDT Migel Merchant MD LAB - BEAKER POCT Performing Organization Address City/[facility]/ZIP Code Phon e Number FV POINT [...] Potassium 4.8 3.4 - 5.3 [facility] mmol/L CAMPUS LABS Specimen Anatomical Collection Method Collection Time Receive d Time (Source) Location / / Volume Laterality Blood specimen 02/03/2014 10:11 4 (specimen) AM CDT 10:23 AM CDT Caitlin Owens MD LAB - BLOOD ORDERABLES Performing Organization Address City/State/ZIP Code Phon e Number [facility] [address] LABS (ABNORMAL) Hemoglobin (02/03/2014 10:11 AM CDT) P athologist Signature Hemoglobin 9.7 (L) 13.3 - 17.7 [facility] g/dL CAMPUS LABS Specimen Anatomical Collection Method Collection Time Receive d Time (Source) Location / / Volume Laterality Blood specimen 02/03/2014 10:11 4 (specimen) AM CDT 10:23 AM CDT Caitlin Owens MD LAB - BLOOD ORDERABLES Performing Organization Address City/State/ZIP Code Phon e Number [facility] [address] LABS (ABNORMAL) Glucose by meter (02/03/2014 [...] Basic metabolic panel (02/03/2014 5:38 AM CDT) [facility] gist Method Time Signature Sodium 141 [...] Address City/State/ZIP Code Phon e Number [address] [address] [facility] LABS (ABNORMAL) [...] Number [facility] [address] LABS Magnesium (02/03/2014 5:38 AM CDT) P athologist Signature Magnesium 2.0 1.6 - 2.3 [facility] mg/dL [place] LABS Specimen Anatomical Collection Method Collection Time Receive d Time (Source) Location / / Volume Laterality Blood specimen 02/03/2014 5:38 AM 014 5:40 (specimen) CDT AM CDT Omaira Chavez PA-C LAB - BLOOD ORDERABLES Performing Organization Address City/[facility]/ZIP Code Phon e Number [facility] [address] LABS (ABNORMAL) CBC with platelets differential (02/03/2014 5:38 AM CDT) Patholo gist Method Time Signature WBC 13.2 (H) 4.0 - [facility] 11.0 [facility] 10e9/L [place] LABS RBC Count 3.20 (L) 4.4 - 5.9 [facility] 10e12/L [facility] LABS Hemoglobin 9.9 (L) 13.3 - [facility] 17.7 g/dL [facility] LABS Hematocrit 30.2 (L) 40.0 - [facility] 53.0 % [facility] LABS MCV 94 78 - 100 [facility] fl [facility] LABS MCH 30.9 26.5 - [facility] 33.0 pg [facility] LABS MCHC 32.8 31.5 - [facility] 36.5 g/dL [facility] LABS RDW 14.5 10.0 - [facility] 15.0 % [facility] LABS Platelet Count 108 (L) 150 - 450 [facility] 10e9/L [facility] LABS Diff Method Automated [employer] Method [facility] LABS % Neutrophils 96.9 % [facility] LABS % Lymphocytes 0.7 % [facility] LABS % Monocytes 2.1 % [facility] LABS % Eosinophils 0.0 % [facility] UNIVERSITY [...] 0.0 0.0 - 0.2 [facility] Basophils 10e9/L [place] [facility] LABS Abs Immature 0.0 0 - 0.4 [facility] Granulocytes 10e9/L [facility] LABS Specimen Anatomical Collection Method Collection Time Receive d Time (Source) Location / / Volume Laterality Blood specimen 02/03/2014 5:38 AM 014 5:40 (specimen) CDT AM CDT Omaira Chavez PA-C LAB - BLOOD ORDERABLES Performing Organization Address City/State/ZIP Code Phon e Number [address] LABS (ABNORMAL) Hemoglobin A1c (02/03/2014 5:38 AM CDT) Analysis Performed At Patho logist Time Signature Hemoglobin A1C 6.2 (H) 4.3 - 6.0 [facility] % [facility] LABS Specimen Anatomical Collection Method Collection Time Receive d Time (Source) Location / / Volume Laterality Blood specimen 02/03/2014 5:38 AM 014 5:40 (specimen) CDT AM CDT Caitlin Owens MD LAB - BLOOD ORDERABLES Performing Organization Address City/State/ZIP Code Phon e Number [address] LABS (ABNORMAL) Glucose by meter (02/03/2014 [...] Potassium 4.7 3.4 - 5.3 [facility] mmol/L [place] LABS Specimen Anatomical Collection Method Collection Time Receive d Time (Source) Location / / Volume Laterality Blood specimen 02/03/2014 1:18 AM 014 1:20 (specimen) CDT AM CDT Caitlin Owens MD LAB - BLOOD ORDERABLES Performing Organization Address City/[facility]/ZIP Code Phon e Number [address] LABS (ABNORMAL) Hemoglobin (02/03/2014 1:18 AM CDT) P athologist Signature Hemoglobin 9.8 (L) 13.3 - 17.7 [facility] g/dL [place] LABS Specimen Anatomical Collection Method Collection Time Receive d Time (Source) Location / / Volume Laterality Blood specimen 02/03/2014 1:18 AM 014 1:20 (specimen) CDT AM CDT Caitlin Owens MD LAB - BLOOD ORDERABLES Performing Organization Address City/[facility]/ZIP Code Phon e Number [address] LABS (ABNORMAL) Glucose by meter (02/03/2014 1:16 AM CDT) P athologist Signature Glucose 186 (H) 60 - 99 POINT OF CARE mg/dL TEST, GLUCOSE Specimen Anatomical Collection Method Collection Time Receive d Time (Source) Location / / Volume Laterality 02/03/2014 1:16 AM 4 1:20 CDT AM CDT Migel Merchant MD LAB - BEAKER POCT Performing Organization Address City/[facility]/ZIP Code Phon e Number FV POINT [...] - BEAKER POCT Performing Organization Address City/[facility]/ZIP Code Phon e Number FV POINT [...] Phosphorus 4.4 2.5 - 4.5 [facility] mg/dL CAMPUS LABS Specimen Anatomical Collection Method Collection Time Receive d Time (Source) Location / / Volume Laterality Blood specimen 02/02/2014 10:50 201 4 (specimen) PM CDT 11:06 PM CDT Caitlin Owens MD LAB - BLOOD ORDERABLES Performing Organization Address City/[facility]/ZIP Code Phon e Number [facility] [address] LABS Magnesium (02/02/2014 10:50 PM CDT) athologist Signature Magnesium 1.8 1.6 - 2.3 [facility] mg/dL [place] LABS Specimen Anatomical Collection Method Collection Time Receive d Time (Source) Location / / Volume Laterality Blood specimen 02/02/2014 10:50 201 4 (specimen) PM CDT 11:06 PM CDT Caitlin Owens MD LAB - BLOOD ORDERABLES Performing Organization Address City/[facility]/ZIP Code Phon e Number [facility] [address] LABS (ABNORMAL) Basic metabolic panel (02/02/2014 10:50 PM CDT) [facility] gist Method Time Signature Sodium 138 133 - 144 [facility] mmol/L [facility] LABS Potassium 4.5 3.4 - 5.3 [facility] mmol/L [facility] LABS Chloride 104 94 - 109 [facility] mmol/L [facility] LABS Carbon Dioxide 25 20 - 32 [facility] mmol/L [facility] LABS Anion Gap 10 6 - 17 [facility] mmol/L [facility] LABS Glucose 134 (H) 60 - 99 [facility] mg/dL [facility] LABS Urea Nitrogen 44 (H) 7 - 30 [facility] mg/dL [facility] LABS Creatinine 6.14 (H) 0.66 - [facility] 1.25 mg/dL [facility] LABS GFR Estimate 9 (L) >60 [facility] mL/min/1.7 [place] [address] CAMPUS LABS GFR Estimate If 11 (L) >60 [facility] Black mL/min/1.7 [place] [address] CAMPUS LABS Calcium 8.8 8.5 - 10.4 [facility] mg/dL [facility] LABS Specimen Anatomical Collection Method Collection Time Receive d Time (Source) Location / / Volume Laterality Blood specimen 02/02/2014 10:50 4 (specimen) PM CDT 11:06 PM CDT Caitlin Owens MD LAB - BLOOD ORDERABLES Performing Organization Address City/State/ZIP Code Phon e Number [facility] [address] [place] [address] [place] [facility] ([facility]NORMAL) CBC with platelets differential (02/02/2014 10:50 PM CDT) [facility] gist Method Time Signature WBC 8.2 4.0 - [facility] 11.0 [facility] 10e9/L [place] LABS RBC Count 3.34 (L) 4.4 - 5.9 [facility] 10e12/L [facility] LABS Hemoglobin 10.3 (L) 13.3 - [facility] 17.7 g/dL [facility] LABS Hematocrit 30.9 (L) 40.0 - [facility] 53.0 % [facility] LABS MCV 93 78 - 100 [facility] fl [facility] LABS MCH 30.8 26.5 - [facility] 33.0 pg [facility] LABS MCHC 33.3 31.5 - [facility] 36.5 g/dL [facility] LABS RDW 14.3 10.0 - [facility] 15.0 % [facility] LABS Platelet Count 79 (L) 150 - 450 [facility] 10e9/L [facility] LABS Diff Method Automated [facility] Method [facility] LABS % Neutrophils 96.7 % [facility] LABS % Lymphocytes 1.6 % [facility] % Monocytes 1.2 % [facility] % Eosinophils 0.4 % [facility] % Basophils 0.0 % [facility] LABS % Immature 0.1 % [facility] Granulocytes [facility] LABS Absolute 7.9 1.6 - 8.3 [facility] Neutrophil 10e9/L [facility] LABS Absolute 0.1 (L) 0.8 - 5.3 [facility] Lymphocytes 10e9/L [facility] LABS Absolute 0.1 0.0 - 1.3 [facility] Monocytes 10e9/L [facility] LABS Absolute 0.0 0.0 - 0.7 [facility] Eosinophils 10e9/L [facility] LABS Absolute 0.0 0.0 - 0.2 [facility] Basophils 10e9/L [facility] LABS Abs Immature 0.0 0 - 0.4 [facility] Granulocytes 10e9/L [facility] LABS Specimen Anatomical Collection Method Collection Time Receive d Time (Source) Location / / Volume Laterality Blood specimen 02/02/2014 10:50 4 (specimen) PM CDT 11:06 PM CDT Caitlin Owens MD LAB - BLOOD ORDERABLES Performing Organization Address City/State/ZIP Code Phon e Number [facility] [address] LABS (ABNORMAL) VENOUS PANEL (02/02/2014 10:09 PM CDT) [facility] Method Time Signature Ph Venous 7.31 (L) 7.32 - [facility] 7.43 pH [facility] LABS PCO2 Venous 52 (H) 40 - 50 [facility] mm Hg [facility] LABS PO2 Venous 34 25 - 47 [facility] mm Hg [facility] LABS Bicarbonate 26 21 - 28 [facility] Venous mmol/L [facility] LABS Base Deficit 0.3 mmol/L [employer] Venous [facility] LABS Comment: Reference range: -7.7 to 1.9 [facility] 45 [place] [facility] LABS Sodium 137 133 - 144 mmol/L [facility] LABS Potassium 4.4 3.4 - 5.3 mmol/L [facility] LABS Hemoglobin 10.0 (L) 13.3 - 17.7 g/dL [facility] LABS Glucose 116 (H) 60 - 99 mg/dL [facility] LABS Calcium Ionized Whole Blood 4.8 4.4 - 5.2 mg/dL [facility] LABS Specimen Anatomical Collection Method Collection Time Receive d Time (Source) Location / / Volume Laterality 02/02/2014 10:09 02/02/2014 PM CDT 10:14 PM CDT Migel Merchant MD LAB - BLOOD ORDERABLES Performing Organization Address City/[facility]/ZIP Code Phon e Number [facility] [address] LABS (ABNORMAL) Glucose by meter (02/02/2014 9:24 PM CDT) P athologist Signature Glucose 129 (H) 60 - 99 POINT OF CARE mg/dL TEST, GLUCOSE Specimen Anatomical Collection Method Collection Time Receive d Time (Source) Location / / Volume Laterality 02/02/2014 9:24 PM 4 9:31 CDT PM CDT Migel Merchant MD LAB - ROBERT POCT Performing Organization Address City/[facility] Phon e Number FV [...] LARES - BEAJ POCT Performing Organization Address City/[facility] Phon e Number FV POINT OF CARE TEST, GLUCOSE POINT OF CARE TEST, GLUCOSE (ABNORMAL) VENOUS PANEL (02/02/2014 6:40 PM CDT) P athologist Signature Ph Venous 7.35 7.32 - [facility] 7.43 pH [facility] PCO2 Venous 50 40 - 50 mm [facility] Hg [facility] PO2 Venous 46 25 - 47 mm [facility] Hg [facility] Bicarbonate 28 21 - 28 [facility] Venous mmol/L [facility] Base Excess 1.8 mmol/L [employer] Venous [facility] Comment: Reference range: -7.7 to 1.9 FIO2 100% [facility] US LABS Sodium 141 133 - 144 mmol/L [facility]S Potassium 3.7 3.4 - 5.3 mmol/L [facility] Hemoglobin 10.3 (L) 13.3 - 17.7 g/dL [facility] LABS Glucose 76 60 - 99 mg/dL [facility] LABS Calcium Ionized Whole Blood 4.8 4.4 - 5.2 mg/dL [facility]S Specimen Anatomical Collection Method Collection Time Receive d Time (Source) Location / / Volume Laterality 02/02/2014 6:40 PM 4 6:44 CDT PM CDT Migel Merchant MD LAB - BLOOD ORDERABLES Performing Organization Address City/State/ZIP Code Phon e Number [facility] [address] [place] [address] [facility] LABS Glucose by meter (02/02/2014 5:11 [...] - BEAKER POCT Performing Organization Address [facility] Phon e Number FV [...] Blood component (02/02/2014 2:07 PM CDT) [facility] Method Time Signature Unit Number [id number] [facility] LABS Blood Red Blood [facility] Component Cells [facility] LABS Reduced Division 00 [facility] LABS Status of No longer [facility] Unit available [facility] 02/06/2014 HOSPITAL LAB 0300 Specimen Anatomical Collection Method Collection Time Receive d Time (Source) Location / / Volume Laterality 02/02/2014 2:07 PM 4 2:10 CDT PM CDT Caitlin Owens MD LABORATORY Performing Organization Address City/[facility]/ZIP Code Phon e Number [place] [address] [address] [place], [place] [address] [facility] LAB Blood component (02/02/2014 2:07 PM CDT) [facility] Method Time Signature Unit Number [id number] [facility] LABS Blood Red Blood [facility] Component Cells [facility] LABS Reduced Division 00 [facility] LABS Status of No longer [facility] Unit available [facility] 02/06/2014 HOSPITAL LAB 0300 Specimen Anatomical Collection Method Collection Time Receive d Time (Source) Location / / Volume Laterality 02/02/2014 2:07 PM 4 2:10 CDT PM CDT Caitlin Owens MD LABORATORY Performing Organization Address City/[facility]/ZIP Code Phon e Number [place] [address] [place], [place] [address] HOSPITAL [facility] LABS [facility] LAB ABO/Rh type and screen (02/02/2014 2:07 PM CDT) Patholo gist Method Time Signature Units Ordered 2 [facility] LABS ABO A [facility]S RH(D) Pos [facility] LABS Antibody Neg [employer] Screen [facility] Test Valid [facility] Only [facility] BLOOD BANK Center,[place] LAB w Hospital Specimen 02/05/2014 [employer] Expires [facility] [place] BLOOD [facility]ANK LAB Crossmatch Red Blood [employer] Cells [facility] LABS Specimen Anatomical Collection Method Collection Time Receive d Time (Source) Location / / Volume Laterality Blood specimen 02/02/2014 2:07 PM 014 2:10 (specimen) CDT PM CDT Caitlin Owens MD LAB - BLOOD BANK TEST ORDER Performing Organization Address City/State/ZIP Code Phon e Number [facility] [address] [place], [place] [phone] [place] [address] LABS [facility] BLOOD BANK LAB (ABNORMAL) Lipid Profile (02/02/2014 2:07 PM CDT) P athologist Signature Cholesterol 135 <200 mg/dL [facility] LABS Comment: LDL Cholesterol is the primary guide to therapy. The NCEP recommends further evaluation of: patients with cholesterol greater than 200 mg/dL if additional risk facto rs are present, cholesterol greater than 240 mg/dL, triglycerides greater than 1 50 mg/dL, or HDL less than 40 mg/dL. Triglycerides 124 0 - 150 mg/dL [facility] HDL Cholesterol 34 (L) >40 mg/dL [facility] [place] [facility] LDL Cholesterol Calculated 77 0 - 129 mg/dL [facility] LAB[facility] Comment: LDL Cholesterol is the primary guide to therapy: LDL-cholesterol goal in high risk patients is <100 mg/dL and in very high risk patients is <70 mg/dL. VLDL-Cholesterol 25 0 - 30 mg/dL [employer] [facility] Cholesterol/HDL Ratio 4.0 0.0 - 5.0 [employer] [facility] Specimen Anatomical Collection Method Collection Time Receive d Time (Source) Location / / Volume Laterality Blood specimen 02/02/2014 2:07 PM 014 2:08 (specimen) CDT PM CDT Caitlin Owens MD LAB - BLOOD ORDERABLES Performing Organization Address City/[facility]/ZIP Code Phon e Number [facility] [address] LABS (ABNORMAL) Hemoglobin A1c (02/02/2014 2:07 PM CDT) Analysis Performed At Patho logist Time Signature Hemoglobin A1C 6.2 (H) 4.3 - 6.0 [facility] Specimen Anatomical Collection Method Collection Time Receive d Time (Source) Location / / Volume Laterality Blood specimen 02/02/2014 2:07 PM 014 2:08 (specimen) CDT PM CDT Caitlin Owens MD LAB - BLOOD ORDERABLES Performing Organization Address City/[facility]/ZIP Code Phon e Number [facility] [address] LABS Hepatitis C antibody (02/02/2014 2:07 PM CDT) [facility] gist Method Time Signature Hepatitis C Negative NEG [facility] Antibody MICROBIOLOGY Specimen Anatomical Collection Method Collection Time Receive d Time (Source) Location / / Volume Laterality Blood specimen 02/02/2014 2:07 PM 014 2:08 (specimen) CDT PM CDT Caitlin Owens MD LAB - BLOOD ORDERABLES Performing Organization Address City/[facility]/ZIP Code Phon e Number [facility] [address] [place], [place] [id number] [place] [address] MICROBIOLOGY Hepatitis B core antibody IgM (02/02/2014 2:07 PM CDT) [facility] gist Method Time Signature Hepatitis B Negative NEG [facility] Core IgM MICROBIOLOGY Specimen Anatomical Collection Method Collection Time Receive d Time (Source) Location / / Volume Laterality Blood specimen 02/02/2014 2:07 PM 014 2:08 (specimen) CDT PM CDT Caitlin Owens MD LAB - BLOOD ORDERABLES Performing Organization Address City/[facility]/ZIP Code Phon e Number [phone] [place] [address] MICROBIOLOGY Hepatitis B surface antigen (02/02/2014 2:07 PM CDT) [facility] gist Method Time Signature Hep B Surface Negative NEG [facility] Agn MICROBIOLOGY Specimen Anatomical Collection Method Collection Time Receive d Time (Source) Location / / Volume Laterality Blood specimen 02/02/2014 2:07 PM 2 014 2:08 (specimen) CDT PM CDT Caitlin Owens MD LAB - BLOOD ORDERABLES Performing Organization Address City/[facility]/ZIP Code Phon e Number [facility] [address] MICROBIOLOGY HIV Antigen Antibody Combo (02/02/2014 2:07 PM CDT) [facility] Method Time Signature HIV Antigen Nonreactive NR [facility] Antibody HIV-1 p24 Ag & HIV-1/HIV-2 Ab Not Detected [facility] LABS Specimen Anatomical Collection Method Collection Time Receive d Time (Source) Location / / Volume Laterality Blood specimen 02/02/2014 2:07 PM 2 014 2:08 (specimen) CDT PM CDT Caitlin Owens MD LAB - BLOOD ORDERABLES Performing Organization Address City/[facility]/ZIP Code Phon e Number [facility] [address] LABS EBV Capsid Antibody IgM (02/02/2014 2:07 PM CDT) [facility] Method [place] Signature EBV Capsid <0.2 0.0 - 0.8 [facility] Antibody IgM No detectable antibody. AI [facility] LABS Specimen Anatomical Collection Method Collection Time Receive d Time (Source) Location / / Volume Laterality Blood specimen 02/02/2014 2:07 PM 014 2:08 (specimen) CDT PM CDT Caitlin Owens MD LAB - BLOOD ORDERABLES Performing Organization Address City/[facility]/ZIP Code Phon e Number [facility] [address] LABS (ABNORMAL) EBV Capsid Antibody IgG (02/02/2014 2:07 PM CDT) [facility] Method [place] Signature EBV Capsid >8.0 0.0 - 0.8 [facility] Antibody IgG Positive, suggests recent or past exposure [facility] [place] [facility] [place] LABS Specimen Anatomical Collection Method Collection Time Receive d Time (Source) Location / / Volume Laterality Blood specimen 02/02/2014 2:07 PM 014 2:08 (specimen) CDT PM CDT Caitlin Owens MD LAB - BLOOD ORDERABLES Performing Organization Address City/[facility]/ZIP Code Phon e Number [facility] [address] [place] [address] [facility] LABS CMV antibody IgM (02/02/2014 2:07 PM CDT) Analysis Performed At Patho logist Time Signature CMV Antibody <0.2 0.0 - 0.8 [facility] IgM Negative [facility] LABS Specimen Anatomical Collection Method Collection Time Receive d Time (Source) Location / / Volume Laterality Blood specimen 02/02/2014 2:07 PM 014 2:08 (specimen) CDT PM CDT Caitlin Owens MD LAB - BLOOD ORDERABLES Performing Organization Address City/[facility]/ZIP Code Phon e Number [facility] [address] [place], [place] [phone] [place] [address] LABS (ABNORMAL) CMV Antibody IgG (02/02/2014 2:07 PM CDT) P athologist Signature CMV Antibody 7.8 (H) 0.0 - 0.8 [facility] IgG [facility] LABS Comment: Positive Specimen Anatomical Collection Method Collection Time Receive d Time (Source) Location / / Volume Laterality Blood specimen 02/02/2014 2:07 PM 014 2:08 (specimen) CDT PM CDT Caitlin Owens MD LAB - BLOOD ORDERABLES Performing Organization Address City/[facility]/ZIP Code Phon e Number [facility] [address] [place], [place] [phone] [place] [address] LABS (ABNORMAL) Comprehensive metabolic panel (02/02/2014 2:07 PM CDT) Patholo gist Method Time Signature Sodium 141 133 - 144 [facility] mmol/L [facility] LABS Potassium 4.2 3.4 - 5.3 [facility] mmol/L [facility] LABS Chloride 101 94 - 109 [facility] mmol/L [facility] LABS Carbon Dioxide 26 20 - 32 [facility] mmol/L [facility] LABS Anion Gap 13 6 - 17 [facility] mmol/L [facility] LABS Glucose 112 (H) 60 - 99 [facility] mg/dL [facility] LABS Urea Nitrogen 42 (H) 7 - 30 [facility] mg/dL [facility] LABS Creatinine 6.03 (H) 0.66 - [facility] 1.25 [facility] [place] mg/dL CAMPUS LABS GFR Estimate 9 (L) >60 [facility] mL/min/1. [facility] [place] 7m2 [place] LABS GFR Estimate If 11 (L) >60 [facility] Black mL/min/1. [facility] [place] [address] LABS Calcium 9.9 8.5 - [facility] 10.4 [place] mg/dL [place] LABS Bilirubin Total 0.7 0.2 - 1.3 [facility] mg/dL [facility] LABS Albumin 4.2 3.3 - 4.9 [facility] g/dL [facility]S Protein Total 7.5 6.8 - 8.8 [facility] g/dL [facility]S Alkaline 88 40 - 150 [facility] Phosphatase U/L [facility] LABS ALT 33 0 - 70 [facility] U/L [facility] AST 18 0 - 45 [facility] U/L [facility] LABS Specimen Anatomical Collection Method Collection Time Receive d Time (Source) Location / / Volume Laterality Blood specimen 02/02/2014 2:07 PM 014 2:08 (specimen) CDT PM CDT Caitlin Owens MD LAB - BLOOD ORDERABLES Performing Organization Address City/State/ZIP Code Phon e Number [address] LABS (ABNORMAL) CBC with platelets differential (02/02/2014 2:07 PM CDT) [facility] gist Method Time Signature WBC 6.3 4.0 - [facility] 11.0 [place] 10e9/L [place] LABS RBC Count 3.71 (L) 4.4 - 5.9 [facility] 10e12/L [facility] LABS Hemoglobin 11.5 (L) 13.3 - [facility] 17.7 g/dL [facility] LABS Hematocrit 33.7 (L) 40.0 - [facility] 53.0 % [facility] LABS MCV 91 78 - 100 [facility] fl [facility] LABS MCH 31.0 26.5 - [facility] 33.0 pg [facility] LABS MCHC 34.1 31.5 - [facility] 36.5 g/dL [facility] LABS RDW 14.0 10.0 - [facility] 15.0 % [facility]S Platelet Count 110 (L) 150 - 450 [facility] 10e9/L [facility] LABS Diff Method Automated [facility] Method [facility] LABS % Neutrophils 52.4 % [facility] LABS % Lymphocytes 32.1 % [facility] % Monocytes 7.9 % [facility] % Eosinophils 7.1 % [facility] % Basophils 0.3 % [facility] % Immature 0.2 % [facility] Granulocytes [facility] LABS Absolute 3.3 1.6 - 8.3 [facility] Neutrophil 10e9/L [facility] [place] [facility] Absolute 2.0 0.8 - 5.3 [facility] Lymphocytes 10e9/L [facility] Absolute 0.5 0.0 - 1.3 [facility] Monocytes 10e9/L [facility] Absolute 0.5 0.0 - 0.7 [facility] Eosinophils 10e9/L [facility] Absolute 0.0 0.0 - 0.2 [facility] Basophils 10e9/L [facility] LABS Abs Immature 0.0 0 - 0.4 [facility] Granulocytes 10e9/L [facility] LABS Specimen Anatomical Collection Method Collection Time Receive d Time (Source) Location / / Volume Laterality Blood specimen 02/02/2014 2:07 PM 02/02/ 014 2:08 (specimen) CDT PM CDT Caitlin Owens MD LAB - BLOOD ORDERABLES Performing Organization Address City/State/ZIP Code Phon e Number [facility] [address] LABS Creatinine urine calculation only (02/02/2014 2:00 PM CDT) P athologist Signature Creatinine 88 mg/dL [facility] Urine [place] LABS Specimen Anatomical Collection Method Collection Time Receive d Time (Source) Location / / Volume Laterality 02/02/2014 2:00 PM 4 2:12 CDT PM CDT Caitlin Owens MD LAB - URINE ORDERABLES Performing Organization Address City/[facility] Phon e Number [facility] [address] LABS (ABNORMAL) Urine culture (02/02/2014 2:00 PM CDT) Component Value Ref Test Analysis Performed At Patholo gist Range Method Time Signature Specimen Midstream [facility] Special Specimen received [facility] Requests in preservative MICROBIOLOGY Culture Micro <10,000 colonies/mL Gram pos itive cocci No further identification Susceptibility [facility] testing not routinely done [place] CROBIOLOGY <10,000 colonies/mL Strain 2 Gram positive [...] MICRO GENERAL ORDERABL ES Performing Organization Address City/[facility]/ZIP Code Phon e Number [address] LABS [facility] MICROBIOLOGY (ABNORMAL) Protein random urine (02/02/2014 2:00 PM CDT) [facility] Method Time Signature Protein Random 1.89 g/L [facility] Urine [facility] LABS Protein Total 2.15 (H) 0 - 0.2 [facility] Urine g/gr g/g Cr [facility] LABS Specimen Anatomical Collection Method Collection Time Receive d Time (Source) Location / / Volume Laterality Urine specimen URINE SPECIMEN 02/02/2014 2:00 PM 02/02 2:12 (specimen) OBTAINED BY CLEAN CDT PM CDT CATCH PROCEDURE / Unknown Caitlin Owens MD LAB - URINE ORDERABLES Performing Organization Address City/[facility] Phon e Number [address] LABS (ABNORMAL) Routine UA with microscopic (02/02/2014 2:00 PM CDT) [facility] Method Time Signature Color Urine Light Yellow [facility] LABS Appearance Urine Clear [facility] LABS Glucose Urine 70 (A) NEG mg/dL [facility] LABS Bilirubin Urine Negative NEG [facility] LABS Ketones Urine Negative NEG mg/dL [facility] LABS Specific [place] 1.008 1.003 - [facility] Urine 1.035 [facility] LABS Blood Urine Negative NEG [facility] LABS pH Urine 8.0 (H) 5.0 - 7.0 [facility] pH [facility] LABS Protein Albumin 100 (A) NEG mg/dL [employer] Urine [facility] LABS Urobilinogen Normal 0.0 - 2.0 [employer] mg/dL mg/dL [facility] LABS Nitrite Urine Negative NEG [facility] LABS Leukocyte Negative NEG [facility] Esterase Urine [facility] LABS Source Clean catch [facility] urine [facility] LABS WBC Urine 1 [...] Number [facility] [address] [place] [address] [facility] LABS (ABNORMAL) Glucose by meter [...] 12-lead, tracing only (02/02/2014 1:58 PM CDT) [facility] gist Method Time Signature Interpretation ECG Click View RADIOLOGY Image link RESULTS to view waveform and result Specimen (Source) Anatomical Collection Method Collection Time Re ceived Time Location / / Volume Laterality 02/02/2014 1:58 PM CDT Caitlin Owens MD ECG ORDERABLES Performing Organization Address City/[facility]/[place]IP [facility] RADIOLOGY RESULTS documented in [...] dose, When verbally ordered by the prescriber. [place] throat with 1-4 sprays 5 minutes prior [...] Lashaun Braswell RN)2004 (Given - Provider: Annmarie Cobly RN) 0809 (Given - Provider: Amanda Hernandez, [...] draw. documented in this encounter Care Teams Tourist Camp Attendant Relationship Specialty Start Date End Date Momo Forbes PCP - General Family Practice 01/02/14 [facility] [address] [place] [address] Ingrid Santana, RN Registered Nurse Transplant 02/10/12 documented as of this encounter
--- OUTSIDE RECORDS SUMMARY | 2022-06-28 13:26 | XMS_ITS | Encounter Summary ---
:1950 Author Organization [place] Address [address] [place] [address] Care Team Providers Name Role Phone Toña Jones MD Primary Care Provider Ingrid Santana RN Unavailable Unavailable Encounter Details Date Type Department Care Team Description 12/10/2013 Telephone Transplant Surgery C Nazia Bledsoe LPN 2nd Floor, [facility] [address] [place] [phone] Social History Tobacco Use Types Packs/Day [...] filedocumented in this encounter Care Teams Fire Marshal Refinery Relationship Specialty Start Date End Date Toña Jones MD PCP - General Nephrology 11/25/11 01/01/14 Ingrid Santana, RN Registered Nurse Transplant 02/10/12 documented as of this encounter
--- OUTSIDE RECORDS SUMMARY | 2022-06-28 13:27 | XMS_ITS | Encounter Summary ---
:1950 Author Organization [place] Address [facility] [place] [address] Care Team Providers Name Role Phone Toña [...] Associated Diagnosis Comme nts PATHOLOGY RESULT - [facility] 03/17/2012 8:24 AM CDT SCAN - ARCHIVE documented in this encounter Results PATHOLOGY RESULT - [facility] SCAN - ARCHIVE (03/17/2012 8:24 AM CDT) Specimen (Source) Anatomical Location Collection Method / Collectio n Time Received Time / Laterality Volume Narrative This result has an attachment that is no t available. Gich Provider LAB - [place] SPECIAL DIAG OR DERABLES documented in this encounter Visit Diagnoses Not on filedocumented in this encounter Care Teams Green Material Value Added Assessor Relationship Specialty Start Date End Date Toña Jones MD PCP - General Nephrology 11/25/11 01/01/14 Momo Forbes PCP - General Family Practice 01/02/14 [facility] [address] [place] [address] Ingrid Santana, RN Registered Nurse Transplant 02/10/12 documented as of this encounter
--- OUTSIDE RECORDS SUMMARY | 2022-06-28 13:27 | XMS_ITS | Encounter Summary ---
:1950 Author Organization [place] Address [address] [place] [address] Care Team Providers Name Role Phone Toña Jones MD Primary Care Provider Ingrid Santana RN Unavailable Unavailable Encounter Details Date Type Department Care Team Description 02/08/2012 Results Only LABORATORY RESULTS Jeff Joshi MD [address] [facility] [address] [place] [address] (Wo rk) Social History Tobacco [...] Phon e Number [facility]AT[facility] Immunology/Histocompatabil [place], [place] [address] ity [facility] [address], Room 3[address]580 HISTOTRAC documented in this encounter Visit Diagnoses Not on filedocumented in this encounter Care Teams Per Diem Relationship Specialty Start Date End Date Toña Jones MD PCP - General Nephrology 11/25/11 01/01/14 Ingrid Santana, RN Registered Nurse Transplant 02/10/12 documented as of this encounter
--- OUTSIDE RECORDS SUMMARY | 2022-06-28 13:27 | XMS_ITS | Encounter Summary ---
:1950 Author Organization [place] Address [address] [place] [address] Care Team Providers Name Role Phone Toña Jones MD Primary Care Provider Ingrid Santana RN Unavailable Unavailable Encounter Details Date Type Department Care Team Description 02/08/2012 Results Only LABORATORY RESULTS Jeff Joshi MD [address] [facility] [address] [place] [address] (Wo rk) Social History Tobacco [...] II Single Antigen (02/08/2012 7:07 AM CDT) [facility] gist Method Time Signature SA2 Test [...] Phon e Number [facility]AT[facility] Immunology/Histocompatabil [place], [place] [address] [facility] [address], Room [address] HISTOTRAC documented in this encounter Visit Diagnoses Not on filedocumented in this encounter Care Teams Sap Portal Consultant Relationship Specialty Start Date End Date Toña Jones MD PCP - General Nephrology 11/25/11 01/01/14 Ingrid Santana, RN Registered Nurse Transplant 02/10/12 documented as of this encounter
--- OUTSIDE RECORDS SUMMARY | 2022-06-28 13:27 | XMS_ITS | Encounter Summary ---
:1950 Author Organization [place] Address [address] [place] [address] Care Team Providers Name Role Phone Toña Jones MD Primary Care Provider Ingrid Santana RN Unavailable Unavailable Encounter Details Date Type Department Care Team Description 10/11/2012 Results Only LABORATORY RESULTS Barbara Bradley MD [address] [place], [place] [address] Social History Tobacco Use [...] HLA Lukasz Class I Single Antigen (10/11/2012) [facility] gist Method Time Signature SA1 Test [...] / Volume Laterality 10/11/2012 10/12/2012 1:03 PM MANAGER MONITORING Barbara Bradley MD LAB - IMMUNOLOGY ORDERABLES Performing Organization Address City/State/ZIP Code Phon e Number [facility] Immunology/Histocompatabil [place], [place] [address] ity [facility] C[facility] [address] [facility] [address] Building, Room [address]580 HISTOTRAC documented in this encounter Visit Diagnoses Not on filedocumented in this encounter Care Teams Mgmt Specialist Relationship Specialty Start Date End Date Toña Jones MD PCP - General Nephrology 11/25/11 01/01/14 Ingrid Santana, RN Registered Nurse Transplant 02/10/12 documented as of this encounter
--- OUTSIDE RECORDS SUMMARY | 2022-06-28 13:27 | XMS_ITS | Encounter Summary ---
:1950 Author Organization [place] Address [facility] [place] [address] Care Team Providers Name Role Phone Toña [...] on filedocumented in this encounter Care Teams Safety Council Director Relationship Specialty Start Date End Date Toña Jones MD PCP - General Nephrology 11/25/11 01/01/14 Momo Forbes PCP - General Family Practice 01/02/[address] [place] [address] Ingrid Santana, RN Registered Nurse Transplant 02/10/12 documented as of this encounter
--- OUTSIDE RECORDS SUMMARY | 2022-06-28 13:27 | XMS_ITS | Encounter Summary ---
:1950 Author Organization [place] Address [address] [place] [address] Care Team Providers Name Role Phone Toña Jones MD Primary Care Provider Ingrid Santana RN Unavailable Unavailable Reason for Visit (Routine) - Closed Specialty Diagnoses / Procedures Referred By Contact Refer red To Contact Radiology Diagnoses NM MPI SCAN Procedure Notes: UNSPECIFIED ESSENTIAL HYPERTENSION,PREOPERATIVE EXAMINATION, UNSPECIFIED, [facility] Nuclear Medicine Procedures RADIOLOGY [address] [place] [address] Phone: Referral ID Status Reason Start Date Expiration Date Visits Requ ested Visits Authorized [id number] Closed 02/11/2012 02/10/2013 1 1 Encounter Details Date Type Department Care Team Description 02/15/2012 Hospital Encounter [facility] Barbara Bradley ESRD (end stage [facility] Imaging MD Monae renal disease) (H) 500 [facility] [address] [place] [address] Social History Tobacco Use [...] tablet by mouth 0 02/18/2014 daily. B kmhnkad-M-xspio acid Take 1 capsule by mouth 0 [...] disease documented in this encounter Care Teams Burn Crew Member Relationship Specialty Start Date End Date Toña Jones MD PCP - General Nephrology 11/25/11 01/01/14 Ingrid Santana RN Registered Nurse Transplant 02/10/12 documented as of this encounter
--- OUTSIDE RECORDS SUMMARY | 2022-06-28 13:27 | XMS_ITS | Encounter Summary ---
:1950 Author Organization [place] Address [address] [address] Care Team Providers Name Role Phone Toña Jones MD Primary Care Provider Ingrid Santana RN Unavailable Unavailable Encounter Details Date Type Department Care Team Description 02/10/2012 Orders Only [facility] Anita Joshi MD Diabetes mellitus, type 2 (H); Clinic Imaging [address] [place] [address] End stage renal disease (H) [facility] [address] [place] [address] 1st Floor, Clinic [id number] [place] [address] [address] Social History Tobacco Use [...] disease documented in this encounter Care Teams Otm Consultant Relationship Specialty Start Date End Date Toña Jones MD PCP - General Nephrology 11/25/11 01/01/14 Ingrid Santana RN Registered Nurse Transplant 02/10/12 documented as of this encounter
--- OUTSIDE RECORDS SUMMARY | 2022-06-28 13:27 | XMS_ITS | Encounter Summary ---
:1950 Author Organization [place] Address [address] [place] [address] Care Team Providers Name Role Phone Toña Jones MD Primary Care Provider Ingrid Santana RN Unavailable Unavailable Encounter Details Date Type Department Care Team Description 07/03/2012 Results Only LABORATORY RESULTS Barbara Bradley MD [address] [place], [place] [address] Social History Tobacco Use [...] HLA Lukasz Class I Single Antigen (07/03/2012) [facility] gist Method Time Signature SA1 Test [...] / Volume Laterality 07/03/2012 07/05/2012 1:57 PM CUTTER OPERATOR BRICK Barbara Bradley MD LAB - IMMUNOLOGY ORDERABLES Performing Organization Address City/State/ZIP Code Phon e Number [facility] Immunology/Histocompatabil [place], [place] [address] ity [facility] C[facility] [address] [facility] [address] Building, Room 3-580 HISTOTRAC documented in this encounter Visit Diagnoses Not on filedocumented in this encounter Care Teams Wave Guide Assembler Relationship Specialty Start Date End Date Toña Jones MD PCP - General Nephrology 11/25/11 01/01/14 Ingrid Santana, RN Registered Nurse Transplant 02/10/12 documented as of this encounter
--- OUTSIDE RECORDS SUMMARY | 2022-06-28 13:27 | XMS_ITS | Encounter Summary ---
:1950 Author Organization [place] Address [address] [place] [address] Care Team Providers Name Role Phone Toña Jones MD Primary Care Provider Ingrid Santana RN Unavailable Unavailable Reason for Visit (Routine) - Closed Specialty Diagnoses / Procedures Referred By Contact Refer red To Contact Radiology Diagnoses NM MPI L[place]AN Procedure Notes: UNSPECIFIED ESSENTIAL HYPERTENSION,PREOPERATIVE EXAMINATION, UNSPECIFIED, [facility] Nuclear Medicine Procedures RADIOLOGY [address] [place] [address] Phone: Referral ID Status Reason Start Date Expiration Date Visits Requ ested Visits Authorized [id number] Closed 02/11/2012 02/10/2013 1 1 Encounter Details Date Type Department Care Team Description 02/15/2012 Hospital Encounter [facility] Barbara Bradley Imaging MD Monae 500 [facility] [address] [place], [place] [address] [phone] Social History Tobacco Use Types Packs/Day Years [...] tablet by mouth 0 02/18/2014 daily. B fxjndrr-M-dlphg acid Take 1 capsule by mouth 0 [...] on filedocumented in this encounter Care Teams Head Nurse Relationship Specialty Start Date End Date Toña Jones MD PCP - General Nephrology 11/25/11 01/01/14 Ingrid Santana RN Registered Nurse Transplant 02/10/12 documented as of this encounter
--- OUTSIDE RECORDS SUMMARY | 2022-06-28 13:27 | XMS_ITS | Encounter Summary ---
:1950 Author Organization [place] Address [facility]0 [facility] [place] [address] Care Team Providers Name Role Phone Toña [...] on filedocumented in this encounter Care Teams Numerical Control Tool Programmer Relationship Specialty Start Date End Date Toña Jones MD PCP - General Nephrology 11/25/11 01/01/14 Momo Forbes PCP - General Family Practice 01/02/[address] [place] [address] Ingrid Santana, RN Registered Nurse Transplant 02/10/12 documented as of this encounter
--- OUTSIDE RECORDS SUMMARY | 2022-06-28 13:27 | XMS_ITS | Encounter Summary ---
:1950 Author Organization [place] Address [address] [facility] [place] [address] Care Team Providers Name Role Phone Toña [...] 2 (H) Tommy Wilburn (Primar y Dx) [address] [phone] Social History Tobacco Use Types Packs/Day Years [...] this time. Patient to follow up with hospitality coordinator. documented in this encounter Plan of Treatment Not on filedocumented as of this encounter Visit Diagnoses Diagnosis DM (diabetes mellitus), type 2 (H) - Ana ashley Type II or unspecified type diabetes aung litus without mention of complication, not stated as uncontrolled documented in this encounter Care Teams E Mail System Administrator Relationship Specialty Start Date End Date Toña Jones MD PCP - General Nephrology 11/25/11 01/01/14 Ingrid Santana RN Registered Nurse Transplant 02/10/12 documented as of this encounter
--- OUTSIDE RECORDS SUMMARY | 2022-06-28 13:27 | XMS_ITS | Encounter Summary ---
:1950 Author Organization [place] Address [address] [place] [address] Care Team Providers Name Role Phone Toña Jones MD Primary Care Provider Ingrid Santana RN Unavailable Unavailable Encounter Details Date Type Department Care Team Description 01/17/2013 Results Only LABORATORY RESULTS Barbara Bradley MD [address] [place], [place] [address] Social History Tobacco Use [...] HLA Lukasz Class II Single Antigen (01/17/2013) [facility] gist Method Time Signature SA2 Test [...] Phon e Number [facility] Immunology/Histocompatabil [place], [place] [address] ity [facility] 500 [facility] [address] Building, Room 3-580 HISTOTRAC documented in this encounter Visit Diagnoses Not on filedocumented in this encounter Care Teams Floor Clerk Relationship Specialty Start Date End Date Toña Jones MD PCP - General Nephrology 11/25/11 01/01/14 Ingrid Santana RN Registered Nurse Transplant 02/10/12 documented as of this encounter
--- OUTSIDE RECORDS SUMMARY | 2022-06-28 13:27 | XMS_ITS | Encounter Summary ---
:1950 Author Organization [place] Address [address] [place] [address] Care Team Providers Name Role Phone Toña Jones MD Primary Care Provider Ingrid Santana RN Unavailable Unavailable Encounter Details Date Type Department Care Team Description 07/03/2012 Results Only LABORATORY RESULTS Barbara Bradley MD [address] [place], [place] [address] Social History Tobacco Use [...] this encounter Results Virtual Crossmatch (07/03/2012) [facility] Method Time Signature Crossmatch Donor:ABRAHAM HICKEY ? Crossmatch Date:07/24/2012 HISTOTRAC Result (Note) Serum Date ??Test ?Result ? Donor Specific Antibody ?Comments 07/03/2012 ??Class I/Virtxm1 ? DSA ?None ? 07/03/2012 ??Class II/Virtxm 1 ?DSA ?None ? Specimen (Source) Anatomical Collection Method Collection Time Re ceived Time Location / / Volume Laterality 07/03/2012 07/05/2012 1:57 PM COLOR PASTE MIXER Barbara Bradley MD LAB - IMMUNOLOGY ORDERABLES Performing Organization Address City/State/ZIP Code Phon e Number [facility] Immunology/Histocompatabil [place], [place] [address] [facility] [address] Building, Room 3-580 HISTOTRAC documented in this encounter Visit Diagnoses Not on filedocumented in this encounter Care Teams Cdl Truck Driver Relationship Specialty Start Date End Date Toña Jones MD PCP - General Nephrology 11/25/11 01/01/14 Ingrid Santana RN Registered Nurse Transplant 02/10/12 documented as of this encounter
--- OUTSIDE RECORDS SUMMARY | 2022-06-28 13:27 | XMS_ITS | Encounter Summary ---
:1950 Author Organization [place] Address [facility]0 [facility] [place] [address] Care Team Providers Name Role Phone Toña [...] on filedocumented in this encounter Care Teams Lighting Fixtures Decorator Relationship Specialty Start Date End Date Toña Jones MD PCP - General Nephrology 11/25/11 01/01/14 Momo Forbes PCP - General Family Practice 01/02/[address] [place] [address] Ingrid Santana, RN Registered Nurse Transplant 02/10/12 documented as of this encounter
--- OUTSIDE RECORDS SUMMARY | 2022-06-28 13:27 | XMS_ITS | Encounter Summary ---
:1950 Author Organization [place] Address [address] [place] [address]. [place] [address] Care Team Providers Name Role Phone Toña Jones MD Primary Care Provider Ingrid Santana RN Unavailable Unavailable Momo Forbes Primary Care Provider Encounter Details Date Type Department Care Team Description 02/18/2012 Abstract The Transplant [facility] r 2nd Floor, Clinic [address]A [address] [phone] Social History Tobacco Use [...] filedocumented in this encounter Care Teams Floor Press Operator Relationship Specialty Start Date End Date Toña Jones MD PCP - General Nephrology 11/25/11 01/01/14 Momo Forbes PCP - General Family Practice 01/02/[address] [address] Ingrid Santana, RN Registered Nurse Transplant 02/10/12 documented as of this encounter
--- OUTSIDE RECORDS SUMMARY | 2022-06-28 13:27 | XMS_ITS | Encounter Summary ---
:1950 Author Organization [place] Address [address] [place] [address] Care Team Providers Name Role Phone Toña Jones MD Primary Care Provider Ingrid Santana RN Unavailable Unavailable Encounter Details Date Type Department Care Team Description 10/11/2012 Results Only LABORATORY RESULTS Barbara Bradley MD [address] [place], [place] [address] Social History Tobacco Use [...] HLA Lukasz Class II Single Antigen (10/11/2012) [facility] gist Method Time Signature SA2 Test [...] / Volume Laterality 10/11/2012 10/12/2012 1:03 PM PRINTER MAINTAINER [place] Suseekar Bradley MD LAB - IMMUNOLOGY ORDERABLES Performing Organization Address City/State/ZIP Code Phon e Number [facility] Immunology/Histocompatabil [place], [place] [address] ity [facility] C[facility] 500 [facility] [address] Building, Room 3-580 HISTOTRAC documented in this encounter Visit Diagnoses Not on filedocumented in this encounter Care Teams Clothing Busheler Relationship Specialty Start Date End Date Toña Jones MD PCP - General Nephrology 11/25/11 01/01/14 Ingrid Santana, RN Registered Nurse Transplant 02/10/12 documented as of this encounter
--- OUTSIDE RECORDS SUMMARY | 2022-06-28 13:27 | XMS_ITS | Encounter Summary ---
:1950 Author Organization [place] Address [address] [place] [address] Care Team Providers Name Role Phone Toña Jones MD Primary Care Provider Ingrid Santana RN Unavailable Unavailable Encounter Details Date Type Department Care Team Description 02/08/2012 Results Only LABORATORY RESULTS Jeff Joshi MD [address] [place] [address] (Wo rk) Social History Tobacco [...] I Single Antigen (02/08/2012 7:07 AM CDT) [facility] gist Method Time Signature SA1 Test [...] e Number [facility] Immunology/Histocompatabil [place], [place] [address] [facility] [address] Building, Room 3-580 HISTOTRAC documented in this encounter Visit Diagnoses Not on filedocumented in this encounter Care Teams Prover Relationship Specialty Start Date End Date Toña Jones MD PCP - General Nephrology 11/25/11 01/01/14 Ingrid Santana, RN Registered Nurse Transplant 02/10/12 documented as of this encounter
--- OUTSIDE RECORDS SUMMARY | 2022-06-28 13:27 | XMS_ITS | Encounter Summary ---
:1950 Author Organization [place] Address [address] [facility] [place] [address] Care Team Providers Name Role Phone Toña Jones MD Primary Care Provider Ingrid Santana RN Unavailable Unavailable Reason for Visit Reason Comments Transplant Evaluation kidney Encounter Details Date Type Department Care Team Description 02/10/2012 Office Visit Nephrology Darian Joshi MD 7[address] [facility] 353 [place], [place] [id number] Pre-transplant 2nd Floor, Clinic 2A Joseph Quintana MD [address] [facility] 353 [facility] [address] [place], [place] [address] evaluation for Sanders Mimaalyssa chronic kidney Building disease (Primary Dx) [address] [place] [phone] Social History Tobacco Use Types Packs/Day Years [...] Dialysis Type: [facility] HD; and Dialysis unit: [facility] Primary Family Partner: Dr. 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 Yes Reported, Patient B ifnhlxr-E-skusu acid (NEPHROCAPS) 1 MG capsule Take 1 [...] NEG Ketones Urine Negative NEG (mg/dL) Specific [facility] Urine 1.010 1.003 - 1.035 Blood Urine [...] Report Value: Patient Name: ELINOR GUTHRIE MR#: [id number] Specimen #: [id number] Collected: 02/08/2012 07:07 Received: 02/08/2012 09:00 Reported: 02/11/2012 14:03 Ordering Phy(s): DARIAN JOSHI TEST(S) REQUESTED: A: Factor 5 Leiden and Factor 2 by PCR B: DNA Isolation, High purity extraction SPECIMEN DESCRIPTION: Blood METHODOLOGY: The regions of genomic DNA containing the [id number] Factor 5 gene mutation (Factor V Leiden) and the Factor 2(Prothrombin L40433C) gene mutation were simultaneously amplified using the polymerase chain reaction. The amplified products were digested with restriction endonuclease TaqI and products were analyzed by gel electrophoresis. RESULTS: FACTOR 5-LEIDEN RESULTS: Mutation analyzed: 1691G>A Factor 5 Mutation Interpretation: ABSENT Factor 5 Mutation genotype: G/G FACTOR 2/PROTHROMBIN RESULTS: Mutation analyzed: 73199S>A Factor 2 Mutation Interpretation: ABSENT Factor 2 Mutation genotype: G/G INTERPRETATION: The patient is negative for the Factor 5 mutation and negative for the Factor 2 mutation. This test was developed and its performance determined by the [facility]. It has [...] By: Liliya Stone MD TESTING LAB LOCATION: [address] [address] COLLECTION SITE: Client: [facility] Location: [facility] () HLA LUKASZ CLASS I SINGLE [...] of an antiphospholipid syndrome, recommend anticardiolipin and lagx-4-olgblmyuwmcj (IgG and IgM) antibody tests. Dee Duenas M.D. [phone] 02-09-2012. APTT'S: Seconds Reagent = Stago LS [...] Range Ventricular Rate 60 Atrial Rate 60 OK Interval 186 QRS Duration 104 QT 440 QTc 440 P [place] 36 R AXIS 0 T [place] 36 Interpretation ECG Sinus rhythm Interpretation ECG [...] Function Test Value: Name: ELINOR GUTHRIE ID: [id number] Doctor: DONYA THOMAS Height: 72.00 in Age: [...] INTERPRETATION: The FVC, FEV1, FEV1/FVC ratio and NKC21-77% are within normal limits. The inspiratory flow [...] 02/10/2012 10:00 AM CDT >> AUSTEN FAUSTIN [facility] Feb 10, 2012 9:54 AM Took vitals, cc, reviewed meds and allergies documented in this encounter Plan of Treatment Not on filedocumented as of this encounter Visit Diagnoses Diagnosis Pre-transplant evaluation for chronic ki dney disease - Primary Other specified pre-operative examinatio n documented in this encounter Care Teams Quality Director Relationship Specialty Start Date End Date Toña Jones MD PCP - General Nephrology 11/25/11 01/01/14 Ingrid Santana, RN Registered Nurse Transplant 02/10/12 documented as of this encounter
--- OUTSIDE RECORDS SUMMARY | 2022-06-28 13:27 | XMS_ITS | Encounter Summary ---
:1950 Author Organization [place] Address [address] [place] [address] Care Team Providers Name Role Phone Toña Jones MD Primary Care Provider Ingrid Santana RN Unavailable Unavailable Encounter Details Date Type Department Care Team Description 07/03/2012 Results Only LABORATORY RESULTS Barbara Bradley MD [address] [place], [place] [address] Social History Tobacco Use [...] Lukasz Class II Single Antigen (07/03/2012) [facility] gist Method Time Signature SA2 [...] / Volume Laterality 07/03/2012 07/05/2012 1:57 PM ADVERTISING SALES EXECUTIVE [place] Suseekar Bradley MD LAB - IMMUNOLOGY ORDERABLES Performing Organization Address City/State/ZIP Code Phon e Number [facility] Immunology/Histocompatabil [place], [place] [address] ity [facility] C[facility] 500 [facility] [address] Building, Room 3-580 HISTOTRAC documented in this encounter Visit Diagnoses Not on filedocumented in this encounter Care Teams Applications Engineering Manager Relationship Specialty Start Date End Date Toña Jones MD PCP - General Nephrology 11/25/11 01/01/14 Ingrid Santana, RN Registered Nurse Transplant 02/10/12 documented as of this encounter
--- OUTSIDE RECORDS SUMMARY | 2022-06-28 13:27 | XMS_ITS | Encounter Summary ---
:1950 Author Organization [place] Address [address] [facility] [place] [address] Care Team Providers Name Role Phone Toña Jones MD Primary Care Provider Ingrid Santana RN Unavailable Unavailable Reason for Visit Reason Comments Heart Problem Consult prior to kidney proctor splant, needs EKG please. Encounter Details Date Type Department Care Team Description 02/10/2012 Office Visit Justice Barbara Bradley Unspecified es sential hypertension; [facility] [place] Pre-operative clearance Heart [address] [place] [address] Building [phone] 4th Floor, Clinic 4B (Work) [address] [address] Social History Tobacco Use [...] Stay Well and Call Maribel Nicole RN [phone] with any questions or concerns. You are scheduled for an Adenosine Stress Test 02/15/2012: Please check into the [facility] Waiting Room at 12:15pm for this test. [...] and you need to reschedule, please call [phone]. January 2012Tuesday 1 2 3 4 5 6 7 8 9 10 11 12 13 14 15 16 17 18 19 [facility] NEW 6:30 AM (30 min.) Evaluation, [facility] The Transplant [facility] FULL PULMONARY FUNCTION 8:00 AM (60 min.) 2, [facility] Pfl [place] Pulmonary Function Laboratory RADIOLOGY 8:05 AM (10 min.) Uicxr2 [facility] Diagnostic Imaging [facility] PREP KIDNEY/PANCREAS TX 9:00 AM (120 min.) Angela Lopez RN [facility], Patient Learning Center [facility] TRANSPLANT CLASS KIDNEY 9:00 AM (90 min.) Class, [facility] Transplant The Transplant Center [facility] ASSIGNMENT AGENT 11:00 AM (30 min.) Coordinator, [facility] Care [facility] Transplant [facility] PRE-TX KIDNEY EVAL 11:00 AM (30 min.) Jesus Thomas MD Transplant Surgery LAB 11:30 AM (15 min.) Pwb, Op Lab [facility], Lab RADIOLOGY 1:30 PM (55 min.) Uecvc1 [facility], Echocardiography 20 21 [facility] RETURN 7:00 AM (15 min.) Evaluation, [facility] The Transplant Center RADIOLOGY 7:00 AM (60 min.) Uicusr2 [facility] Diagnostic Imaging CONSULT HOD 8:00 AM (60 min.) Martina Mc[address] [facility], [place], Nutrition Services [facility] TX SOCIAL WORK 9:00 AM (60 min.) 2, [facility] Tx Consult Room The Transplant Center [facility] PRE-TX KIDNEY EVAL 10:00 AM (60 min.) Joseph Quintana MD Nephrology [facility] PANCREAS-KIDNEY TX W/U 11:30 AM (30 min.) Barbara Bradley MD [facility] Heart 22 23 24 25 26 RADIOLOGY 12:30 PM (15 min.) Uninj [facility], Nuclear Medicine RADIOLOGY 1:15 PM (20 min.) Unr1 [facility], Nuclear Medicine RADIOLOGY 1:40 PM (30 min.) [facility] ELECTROCARDIOLOGY RADIOLOGY 3:10 PM (20 min.) [address], Nuclear Medicine 27 28 29 20 [...] On HD since Aug 2011. No past [place], stress tests or coronary angiogorams. No chest [...] 1 tablet by mouth daily. ??? 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 Perez MD knit goods cutter hand. Divisions of Cardiology [place], [place] CC Patient Care Team: Toña Jones MD as PCP - General (Nephrology) Ingrid Santana, RN as Registered Nurse (Transplant) JESUS THOMAS documented in this encounter Plan of Treatment Not on filedocumented as of this encounter Visit Diagnoses Diagnosis Unspecified essential hypertension Pre-operative clearance Preoperative examination, unspecified documented in this encounter Care Teams Vine Fruit Farming Supervisor Relationship Specialty Start Date End Date Toña Jones MD PCP - General Nephrology 11/25/11 01/01/14 Ingrid Santana, RN Registered Nurse Transplant 02/10/12 documented as of this encounter
--- OUTSIDE RECORDS SUMMARY | 2022-06-28 13:27 | XMS_ITS | Encounter Summary ---
:1950 Author Organization [place] Address [address] [place] [address] Care Team Providers Name Role Phone Toña Jones MD Primary Care Provider Ingrid Santana RN Unavailable Unavailable Reason for Visit (Routine) - Closed Specialty Diagnoses / Procedures Referred By Contact Refer red To Contact Cardiology Diagnoses NM STRESS [facility]ISC[facility] Procedure Notes: UNSPECIFIED ESSENTIAL HYPERTENSION,PREOPERATIVE EXAMINATION, UNSPECIFIED, Zz Uu Electrocard Procedures RADIOLOGY [address] [place] [address] Referral ID Status Reason Start Date Expiration Date Visits Requ ested Visits Authorized [id number] Closed 02/11/2012 02/10/2013 1 1 Encounter Details Date Type Department Care Team Description 02/15/2012 Hospital Encounter ZZ UU ELECTROCARD Barbara Bradley [address] [facility] [place] [address] [address] [place], [place] [address] Social History Tobacco Use [...] tablet by mouth 0 02/18/2014 daily. B ydthelk-M-ajhyz acid Take 1 capsule by mouth 0 [...] Test documented in this encounter Care Teams Tangled Yarn Spool Straightener Relationship Specialty Start Date End Date Toña Jones MD PCP - General Nephrology 11/25/11 01/01/14 Ingrid Santana, RN Registered Nurse Transplant 02/10/12 documented as of this encounter
--- OUTSIDE RECORDS SUMMARY | 2022-06-28 13:27 | XMS_ITS | Encounter Summary ---
:1950 Author Organization [place] Address [facility] [place] [address] Care Team Providers Name Role Phone Toña [...] SCAN - 09/25/2012 8:26 AM DIRECTOR OF CUSTOMER SERVICE ARCHIVE documented in this encounter Results LAB RESULT - HIM SCAN - ARCHIVE (09/25/2012 8:26 AM DIRECTOR OF CUSTOMER SERVICE) Specimen (Source) Anatomical Location Collection Method / Collectio n Time Received Time / Laterality Volume Narrative This result has an attachment that is no t available. Marcela Cordero MD LAB - BLOOD ORDERABLES documented in this encounter Visit Diagnoses Not on filedocumented in this encounter Care Teams Brickmason Helper Relationship Specialty Start Date End Date Toña Jones MD PCP - General Nephrology 11/25/11 01/01/14 Momo Forbes PCP - General Family Practice 01/02/[address] [place] [address] Ingrid Santana, RN Registered Nurse Transplant 02/10/12 documented as of this encounter
--- OUTSIDE RECORDS SUMMARY | 2022-06-28 13:27 | XMS_ITS | Encounter Summary ---
:1950 Author Organization [place] Address [address] [place] [address] Care Team Providers Name Role Phone Toña Jones MD Primary Care Provider Ingrid Santana RN Unavailable Unavailable Encounter Details Date Type Department Care Team Description 04/13/2012 Results Only LABORATORY RESULTS Mingo Dangelo MD [address] [facility] [address] [place] [address] (Wo rk) Social History Tobacco [...] HLA Lukasz Class II Single Antigen (04/13/2012) [facility] gist Method Time [...] Phon e Number UU HLA LABORATORY Immunology/Histocompatabil [place], [place] [address] ity [facility] [address], Room 3-580 HISTOTRAC documented in this encounter Visit Diagnoses Not on filedocumented in this encounter Care Teams Executive Vice President Of Sales Relationship Specialty Start Date End Date Toña Jones MD PCP - General Nephrology 11/25/11 01/01/14 Ingrid Santana, RN Registered Nurse Transplant 02/10/12 documented as of this encounter
--- OUTSIDE RECORDS SUMMARY | 2022-06-28 13:27 | XMS_ITS | Encounter Summary ---
:1950 Author Organization [place] Address [address] [place] [address] Care Team Providers Name Role Phone Toña Jones MD Primary Care Provider Ingrid Santana RN Unavailable Unavailable Encounter Details Date Type Department Care Team Description 04/13/2012 Results Only LABORATORY RESULTS Mingo Dangelo MD [address] [facility] 195 [place] [address] (Wo rk) [...] HLA Lukasz Class I Single Antigen (04/13/2012) [facility] gist Method Time Signature SA1 [...] Immunology/Histocompatabil [place], [place] [address] ity [facility] [address] Building, Room 3-580 HISTOTRAC documented in this encounter Visit Diagnoses Not on filedocumented in this encounter Care Teams Organic Preparation Analyst Relationship Specialty Start Date End Date Toña Jones MD PCP - General Nephrology 11/25/11 01/01/14 Ingrid Santana, RN Registered Nurse Transplant 02/10/12 documented as of this encounter
--- OUTSIDE RECORDS SUMMARY | 2022-06-28 13:27 | XMS_ITS | Encounter Summary ---
:1950 Author Organization [place] Address [address] [place] [address] Care Team Providers Name Role Phone Toña Jones MD Primary Care Provider Ingrid Santana RN Unavailable Unavailable Encounter Details Date Type Department Care Team Description 02/10/2012 Hospital Encounter [facility] Jesus Cardenas MD Nutrition Services aMrtina Harley, RD [address] [facility] 84 [place] [address] 420 [facility] Joseph Quintana MD [address] [facility] 353 [facility] [address] [place] [address] 84 [place] [address] Social History Tobacco Use Types Packs/Day Years [...] tablet by mouth 0 02/18/2014 daily. B gktnysg-W-hghxh acid Take 1 capsule by mouth 0 [...] Mcneill, RD - 02/10/2012 8:47 AM CDT [facility] Medical Nutrition Therapy Visit Type: [...] filedocumented in this encounter Care Teams District Scout Executive Relationship Specialty Start Date End Date Toña Jones MD PCP - General Nephrology 11/25/11 01/01/14 Ingrid Santana RN Registered Nurse Transplant 02/10/12 documented as of this encounter
--- OUTSIDE RECORDS SUMMARY | 2022-06-28 13:27 | XMS_ITS | Encounter Summary ---
:1950 Author Organization [place] Address [address] [place] [address] Care Team Providers Name Role Phone Toña Jones MD Primary Care Provider Ingrid Santana RN Unavailable Unavailable Encounter Details Date Type Department Care Team Description 01/17/2013 Results Only LABORATORY RESULTS Barbara Bradley MD [address] [place], [place] [address] Social History Tobacco Use [...] HLA Lukasz Class I Single Antigen (01/17/2013) [facility] gist Method Time Signature SA1 [...] Phon e Number UU HLA LABORATORY Immunology/Histocompatabil [place], [place] [address] ity [facility] [address] [facility] [address] Building, Room 3-580 HISTOTRAC documented in this encounter Visit Diagnoses Not on filedocumented in this encounter Care Teams Nuclear Station Operator Relationship Specialty Start Date End Date Toña Jones MD PCP - General Nephrology 11/25/11 01/01/14 Ingrid Santana, RN Registered Nurse Transplant 02/10/12 documented as of this encounter
--- OUTSIDE RECORDS SUMMARY | 2022-06-28 13:27 | XMS_ITS | Encounter Summary ---
:1950 Author Organization [place] Address [facility] [place] [address] Care Team Providers Name Role Phone Toña Jones MD Primary Care Provider Ingrid Santana RN Unavailable Unavailable Reason for Visit Reason Comments Social Work Services Encounter Details Date Type Department Care Team Description 02/10/2012 Office Visit The Transplant Akanksha Stacy Organ transplant 2nd Floor, Clinic 2A SHALOM Zacarias candidate (Primary [facility] Dx) [address] [address] Social History Tobacco Use Types Packs/Day Years [...] old Duration of Interview: 40 min Process: Ijyn-zt-Hqbl Interview (counseling < 50%) Present at Appointment: Latrell, his brother Kiran and Latrell Zamora, Transplant Financial Soil EngineerCosmetic Manager Worker: CECY Ortiz, BLOOD BANK SUPERVISOR Date: February 10, 2012 Type of transplant: Kidney Donor type: Latrell indicated that he does not know of any potential donors at this time. Cadaver Prior Transplants: No Status of Transplant: Current Living Situation Location: [facility] [address] [place] [address] [facility] [address] With Whom: Alone Family/ Social Support: Kiran lives in [place], [place]. Available, helpful Committed relationship: Latrell indicated [...] Income Savings Insurance Latrell has BC/BS through [employer] until 07/22/13. He has also applied for [...] that assist with fund raising. Discussed asking anode worker for assistance with cobra premiums and [...] No Adequate Finances Yes Signature: CECY Ortiz, [facility] Title: Clinical Environmental Project Manager documented in this encounter Plan of Treatment Not on filedocumented as of this encounter Visit Diagnoses Diagnosis Organ transplant candidate - Primary Awaiting organ transplant status documented in this encounter Care Teams Mechanical Applications Engineer Relationship Specialty Start Date End Date Toña Jones MD PCP - General Nephrology 11/25/11 01/01/14 Ingrid Santana, RN Registered Nurse Transplant 02/10/12 documented as of this encounter
--- OUTSIDE RECORDS SUMMARY | 2022-06-28 13:27 | XMS_ITS | Encounter Summary ---
:1950 Author Organization [place] Address [address] [place] [place] [address] Care Team Providers Name Role Phone Toña Jones MD Primary Care Provider Ingrid Santana RN Unavailable Unavailable Encounter Details Date Type Department Care Team Description 02/08/2012 Results Only LABORATORY RESULTS Jeff Joshi MD [address] [facility] 353 [place] [address] (Wo rk) Social History Tobacco [...] Phon e Number UU HLA LABORATORY Immunology/Histocompatabil [place], [place] [address] [facility] [address] [facility] [address] Building, Room 3-580 HISTOTRAC documented in this encounter Visit Diagnoses Not on filedocumented in this encounter Care Teams Tank Terminal Gauger Relationship Specialty Start Date End Date Toña Jones MD PCP - General Nephrology 11/25/11 01/01/14 Ingrid Santana, RN Registered Nurse Transplant 02/10/12 documented as of this encounter
--- OUTSIDE RECORDS SUMMARY | 2022-06-28 13:27 | XMS_ITS | Encounter Summary ---
:1950 Author Organization [place] Address [address] [place] [address] Care Team Providers Name Role Phone Toña [...] AM Results f or this CROSSMATCH ALLO MODULAR SET CREW MEMBER procedure ar e in the results section. documented in this encounter Results HLA Flow T/B Crossmatch Allo (08/25/2012 9:49 AM MODULAR SET CREW MEMBER) [facility] Method Time Signature Crossmatch Donor:ABRAHAM HICKEY [...] Volume Laterality 08/25/2012 9:49 AM 3 9:06 MODULAR SET CREW MEMBER AM MODULAR SET CREW MEMBER Barbara Bradley MD LAB - IMMUNOLOGY ORDERABLES Performing Organization Address City/State/ZIP Code Phon e Number UU HLA LABORATORY Immunology/Histocompatabil [place], [place] [address] [facility] [address] Building, Room 3-580 HISTOTRAC documented in this encounter Visit Diagnoses Not on filedocumented in this encounter Care Teams Automatic Engraver Relationship Specialty Start Date End Date Toña Jones MD PCP - General Nephrology 11/25/11 01/01/14 Ingrid Santana RN Registered Nurse Transplant 02/10/12 documented as of this encounter
--- OUTSIDE RECORDS SUMMARY | 2022-06-28 13:27 | XMS_ITS | Encounter Summary ---
:1950 Author Organization [place] Address [address] [place] [address] Care Team Providers Name Role Phone Toña Jones MD Primary Care Provider Ingrid Santana RN Unavailable Unavailable Encounter Details Date Type Department Care Team Description 02/15/2012 Hospital Encounter [facility] Barbara Bradley Unsp ecified essential hypertension; [facility] Imaging MD Monae Pre-operative clearance [address] [place] [phone] Social History Tobacco Use Types Packs/Day [...] tablet by mouth 0 02/18/2014 daily. B wskmpdy-G-ulkks acid Take 1 capsule by mouth 0 [...] unspecified documented in this encounter Care Teams Pathology Laboratory Technologist Relationship Specialty Start Date End Date Toña Jones MD PCP - General Nephrology 11/25/11 01/01/14 Ingrid Santana, RN Registered Nurse Transplant 02/10/12 documented as of this encounter
--- OUTSIDE RECORDS SUMMARY | 2022-06-28 13:28 | XMS_ITS | Encounter Summary ---
:1950 Author Organization [place] Address [address] [place] [address]. [place] [address] Care Team Providers Name Role Phone Toña Jones MD Primary Care Provider Ingrid Santana RN Unavailable Unavailable Momo Forbes Primary Care Provider Encounter Details Date Type Department Care Team Description 01/02/2008 Historic Results [facility] Provider, MD Marcela Social History Tobacco Use [...] filedocumented in this encounter Care Teams Concrete Truck Driver Relationship Specialty Start Date End Date Toña Jones MD PCP - General Nephrology 11/25/11 01/01/14 Momo Forbes PCP - General Family Practice 01/02/[address] [address] Siers, Ingrid A, RN Registered Nurse Transplant 02/10/12 documented as of this encounter
--- OUTSIDE RECORDS SUMMARY | 2022-06-28 13:28 | XMS_ITS | Encounter Summary ---
:1950 Author Organization [place] Address [address] [place] [address] Care Team Providers Name Role Phone Toña Jones MD Primary Care Provider Reason for Visit Reason Onset Date Comments Pre Visit Planning - Done 02/07/2012 Consult prior to kidney transplant, needs EKG please. Encounter Details Date Type Department Care Team Description 02/07/2012 PRE VISIT [facility] Barbara Bradley Pre Visit Planning - Physicians Orestes Licona MD Done (Consult prior to [facility] [address] kidney transplant, [place] [address] needs EKG please.) 4th Floor, Clinic [address] [address] Social History Tobacco Use Types [...] filedocumented in this encounter Care Teams Boiler Shop Mechanic Relationship Specialty Start Date End Date Toña Jones MD PCP - General Nephrology 11/25/11 01/01/14 documented as of this encounter
--- OUTSIDE RECORDS SUMMARY | 2022-06-28 13:28 | XMS_ITS | Encounter Summary ---
:1950 Author Organization [place] Address [address] [place] [address]. [place] [address] Care Team Providers Name Role Phone Toña Jones MD Primary Care Provider Ingrid Santana RN Unavailable Unavailable Momo Forbes Primary Care Provider Encounter Details Date Type Department Care Team Description 01/12/2010 Historic Results [facility] Provider, MD Marcela Social History Tobacco Use [...] filedocumented in this encounter Care Teams Plane Runner Relationship Specialty Start Date End Date Toña Jones MD PCP - General Nephrology 11/25/11 01/01/14 Momo Forbes PCP - General Family Practice 01/02/[address] [address] Siers, Ingrid A, RN Registered Nurse Transplant 02/10/12 documented as of this encounter
--- OUTSIDE RECORDS SUMMARY | 2022-06-28 13:28 | XMS_ITS | Encounter Summary ---
:1950 Author Organization [place] Address [address] [place] [address] Care Team Providers Name Role Phone Toña Jones MD Primary Care Provider Encounter Details Date Type Department Care Team Description 02/08/2012 Hospital Encounter [facility] Jesus Cardenas MD Patient Learning Bobby Angela Leon, BOGDAN 420 [facility] [address] [place] [id number] 420 [place] [address] Social History Tobacco Use Types Packs/Day Years [...] tablet by mouth 0 02/18/2014 daily. B zzxbxer-V-owwiy acid Take 1 capsule by mouth 0 [...] filedocumented in this encounter Care Teams Sorter Lumber Straightener Relationship Specialty Start Date End Date Toña Jones MD PCP - General Nephrology 11/25/11 01/01/14 documented as of this encounter
--- OUTSIDE RECORDS SUMMARY | 2022-06-28 13:28 | XMS_ITS | Encounter Summary ---
:1950 Author Organization [place] Address [address] [place] [address] Care Team Providers Name Role Phone Toña [...] on filedocumented in this encounter Care Teams Soil Technologist Relationship Specialty Start Date End Date Toña Jones MD PCP - General Nephrology 11/25/11 01/01/14 Momo Forbes PCP - General Family Practice 01/02/14 [facility] [address] [place] [address] Ingrid Santana, RN Registered Nurse Transplant 02/10/12 documented as of this encounter
--- OUTSIDE RECORDS SUMMARY | 2022-06-28 13:28 | XMS_ITS | Encounter Summary ---
:1950 Author Organization [place] Address [facility] [place] [address] Care Team Providers Name Role Phone Toña Jones MD Primary Care Provider Reason for Referral - Closed Specialty Diagnoses / Procedures Referred By Contact Refer red To Contact Diagnoses Diabetes mellitus, type 2 (H) End stage renal disease (H) [facility] 2nd Floor, [place] [phone] Referral ID Status Reason Start Date Expiration Date Visits Requ ested Visits Authorized [id number] Closed 12/02/2011 05/30/2012 1 1 - Closed Specialty Diagnoses / Procedures Referred By Contact Refer red To Contact Diagnoses Diabetes mellitus, type 2 (H) End stage renal disease (H) [facility] Floor, [place] [phone] Referral ID Status Reason Start Date Expiration Date Visits Requ ested Visits Authorized [id number] Closed 12/02/2011 05/30/2012 1 1 - Closed Specialty Diagnoses / Procedures Referred By Contact Refer red To Contact Diagnoses Diabetes mellitus, type 2 (H) End stage renal disease (H) [facility] 2nd Floor, [place] [phone] Referral ID Status Reason Start Date Expiration Date Visits Requ ested Visits Authorized [id number] Closed 12/02/2011 05/30/2012 1 1 - Closed Specialty Diagnoses / Procedures Referred By Contact Refer red To Contact Diagnoses Diabetes mellitus, type 2 (H) End stage renal disease (H) [facility] Renal 2nd Floor, Clinic 2A [place] [phone] Referral ID Status Reason Start Date Expiration Date Visits Requ ested Visits Authorized [id number] Closed 12/02/2011 05/30/2012 1 1 - Closed Specialty Diagnoses / Procedures Referred By Contact Refer red To Contact Diagnoses Diabetes mellitus, type 2 (H) End stage renal disease (H) [facility] Floor, [place] [phone] Referral ID Status Reason Start Date Expiration Date Visits Requ ested Visits Authorized [id number] Closed 12/02/2011 05/30/2012 1 1 - Closed Specialty Diagnoses / Procedures Referred By Contact Refer red To Contact Diagnoses Diabetes mellitus, type 2 (H) End stage renal disease (H) [facility] Floor, [place] [phone] Referral ID Status Reason Start Date Expiration Date Visits Requ ested Visits Authorized [id number] Closed 12/02/2011 05/30/2012 1 1 - Closed Specialty Diagnoses / Procedures Referred By Contact Refer red To Contact Diagnoses Diabetes mellitus, type 2 (H) End stage renal disease (H) [facility]al 2nd Floor, Clinic [address]A [address] [phone] Referral ID Status Reason Start Date Expiration Date Visits Requ ested Visits Authorized [id number] Closed 12/02/2011 05/30/2012 1 1 - Closed Specialty Diagnoses / Procedures Referred By Contact Refer red To Contact Diagnoses Diabetes mellitus, type 2 (H) End stage renal disease (H) [facility]al 2nd Floor, Clinic [address]A [address] [phone] Referral ID Status Reason Start Date Expiration Date Visits Requ ested Visits Authorized [id number] Closed 12/02/2011 05/30/2012 1 1 - Closed Specialty Diagnoses / Procedures Referred By Contact Refer red To Contact Diagnoses Diabetes mellitus, type 2 (H) End stage renal disease (H) [facility]al 2nd Floor, Clinic 2A [address] [phone] Referral ID Status Reason Start Date Expiration Date Visits Requ ested Visits Authorized [id number] Closed 12/02/2011 05/30/2012 1 1 Encounter Details Date Type Department Care Team Description 12/02/2011 Orders Only Nephrology Ingrid Santana, Diabetes mellitus, type 2 (H ); 2nd Floor, Clinic 2A RN End stage renal disease (H) [address] [phone] Social History Tobacco Use Types [...] 2 (H) End stage renal disease (H) SYSTEMS INTEGRATION MANAGER Referral Routine Diabetes mellitus, Ordered: 12/02/2011 REFERRAL type 2 (H) End stage renal disease (H) NEPHROLOGY ADULT REFERRAL Referral Routine Diabetes mellit us, Ordered: 12/02/2011 type 2 (H) End stage renal disease (H) GENERAL SURG ADULT Referral Routine Diabetes mellitus, Ord ered: 12/02/2011 REFERRAL type 2 (H) End stage renal disease (H) WASH BOX OPERATOR REFERRAL Referral Routine Diabetes mellitu s, Ordered: [...] disease documented in this encounter Care Teams Icing Coater Relationship Specialty Start Date End Date Toña Jones MD PCP - General Nephrology 11/25/11 01/01/14 documented as of this encounter
--- OUTSIDE RECORDS SUMMARY | 2022-06-28 13:28 | XMS_ITS | Encounter Summary ---
:1950 Author Organization [place] Address [address] [place] [address]. [place] [address] Care Team Providers Name Role Phone Toña Jones MD Primary Care Provider Ingrid Santana RN Unavailable Unavailable Momo Forbes Primary Care Provider Encounter Details Date Type Department Care Team Description 04/12/[address] [facility] [place] Provider, MD Marcela Social History Tobacco Use [...] on filedocumented in this encounter Care Teams Actuarial Technician Relationship Specialty Start Date End Date Toña Jones MD PCP - General Nephrology 11/25/11 01/01/14 Momo Forbes PCP - General Family Practice 01/02/[address] [address] Siers, Ingrid A, RN Registered Nurse Transplant 02/10/12 documented as of this encounter
--- OUTSIDE RECORDS SUMMARY | 2022-06-28 13:28 | XMS_ITS | Encounter Summary ---
:1950 Author Organization [place] Address [address] [place] [address]. [place] [address] Care Team Providers Name Role Phone Toña Jones MD Primary Care Provider Ingrid Santana RN Unavailable Unavailable Momo Forbes Primary Care Provider Encounter Details Date Type Department Care Team Description 05/20/2010 Historic Results [facility] Provider, MD Marcela Social History Tobacco [...] on filedocumented in this encounter Care Teams Payloader Machine Operator Relationship Specialty Start Date End Date Toña Jones MD PCP - General Nephrology 11/25/11 01/01/14 Momo Fobres PCP - General Family Practice 01/02/[address] [address] Siers, Ingrid A, RN Registered Nurse Transplant 02/10/12 documented as of this encounter
--- OUTSIDE RECORDS SUMMARY | 2022-06-28 13:28 | XMS_ITS | Encounter Summary ---
:1950 Author Organization [place] Address [address] [place] [address]. [place] [address] Care Team Providers Name Role Phone Toña Jones MD Primary Care Provider Ingrid Santana RN Unavailable Unavailable Momo Forbes Primary Care Provider Encounter Details Date Type Department Care Team Description 01/14/2006 Historic Results [facility] Provider, MD Marcela Social History [...] PCP - General Family Practice 01/02/[address] [address] Siers, Ingrid A, RN Registered Nurse Transplant 02/10/12 documented as of this encounter
--- OUTSIDE RECORDS SUMMARY | 2022-06-28 13:28 | XMS_ITS | Encounter Summary ---
:1950 Author Organization [place] Address [address] [place] [address]. [place] [address] Care Team Providers Name Role Phone Toña Jones MD Primary Care Provider Ingrid Santana RN Unavailable Unavailable Momo Forbes Primary Care Provider Encounter Details Date Type Department Care Team Description 01/20/2012 Historic Results [facility] Provider, MD Marcela Social History Tobacco Use [...] filedocumented in this encounter Care Teams Benefits Processor Relationship Specialty Start Date End Date Toña Jones MD PCP - General Nephrology 11/25/11 01/01/14 Momo Forbes PCP - General Family Practice 01/02/[address] [address] Siers, Ingrid A, RN Registered Nurse Transplant 02/10/12 documented as of this encounter
--- OUTSIDE RECORDS SUMMARY | 2022-06-28 13:28 | XMS_ITS | Encounter Summary ---
:1950 Author Organization [place] Address [address] [facility] [place] [address] Care Team Providers Name Role Phone Toña Jones MD Primary Care Provider Blayne Santana RN Unavailable Unavailable Reason for Visit Reason Comments Transplant Evaluation Encounter Details Date Type Department Care Team Description 02/08/2012 Office Visit Transplant Surgery Jesus Cardenas, DM (di abetes mellitus), type 2 (H); Clinic End stage renal disease (H) 2nd Floor, Clinic [address] [id number] Social History Tobacco Use Types Packs/Day Years [...] from the original note were not included. 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 Smoking status: [...] Take 1 tablet by mouth daily. B gtiowbx-C-vbhks acid (NEPHROCAPS) 1 MG capsule Take 1 [...] Test 02/08/12 0725 INR 1.11 F2MAR -- [id number] -- Lipid Profile: Cholesterol Date Value Range [...] 09, 2012 3:21 PM Pre Abdominal Organ Outside Sales Executive Evaluation Note: present: Dr. Jesus Cardenas Attendees: self Type of transplant: kidney Required Topic(s) Discussed: Evaluation notification document, SRTR data, Multiple wait list brochure, TELEMARKETER SUPERVISOR, Evaluation/approval process, Selection committee process, Wait [...] spent with patient: 15 minutes -- Nurse Outside Sales Executive Pager [phone] BLAYNE SANTANA -- Nurse Outside Sales Executive Pager [phone] >> Lena Sánchez RN santino Feb 08, [...] disease documented in this encounter Care Teams Management Developer Relationship Specialty Start Date End Date Toña Jones MD PCP - General Nephrology 11/25/11 01/01/14 Blayne Santana, RN Registered Nurse Transplant 02/10/12 documented as of this encounter
--- OUTSIDE RECORDS SUMMARY | 2022-06-28 13:28 | XMS_ITS | Encounter Summary ---
:1950 Author Organization [place] Address [address] [place] [address] Care Team Providers Name Role Phone Toña Jones MD Primary Care Provider Reason for Visit (Routine) - Closed Specialty Diagnoses / Procedures Referred By Contact Refer red To Contact Cardiology Diagnoses ECHO CLINIC COMPLETE ADULT Procedure Notes: DIABETES MELLITUS, TYPE 2,END STAGE RENAL DISEASE,Transplant eval,Performing Location?->[facility] [facility] Echocardiography Procedures RADIOLOGY [address] [place] [address] Phone: Referral ID Status Reason Start Date Expiration Date Visits Requ ested Visits Authorized [id number] Closed 01/21/2012 01/20/2013 1 1 Encounter Details Date Type Department Care Team Description 02/08/2012 [facility] Hass an, MD [address] [facility] [address] [place] [address] Diabetes mellitus, type 2 (H); Echocardiography Rajat German MD [address] [facility] [address] [facility] [address] [place] [address] End stage renal disease (H) [address] [place] [address] Social History Tobacco Use Types [...] tablet by mouth 0 02/18/2014 daily. B kfrwxjz-V-bketj acid Take 1 capsule by mouth 0 [...] - Clinic (PWB) (02/08/2012 1:13 PM CDT) [facility] Method Time Signature [facility] Interpretation [...] disease documented in this encounter Care Teams Pta Relationship Specialty Start Date End Date Toña Jones MD PCP - General Nephrology 11/25/11 01/01/14 documented as of this encounter
--- OUTSIDE RECORDS SUMMARY | 2022-06-28 13:28 | XMS_ITS | Encounter Summary ---
:1950 Author Organization [place] Address [address] [place] [address]. [place] [address] Care Team Providers Name Role Phone Toña Jones MD Primary Care Provider Ingrid Santana RN Unavailable Unavailable Momo Forbes Primary Care Provider Encounter Details Date Type Department Care Team Description 01/06/2011 Historic Results [facility] Provider, MD Marcela [...] on filedocumented in this encounter Care Teams Roundhouse Firer/Fireman Relationship Specialty Start Date End Date Toña Jones MD PCP - General Nephrology 11/25/11 01/01/14 Momo Forbes PCP - General Family Practice 01/02/[address] [address] Siers, Ingrid A, RN Registered Nurse Transplant 02/10/12 documented as of this encounter
--- OUTSIDE RECORDS SUMMARY | 2022-06-28 13:28 | XMS_ITS | Encounter Summary ---
:1950 Author Organization [place] Address [address] [place] [address]. [place] [address] Care Team Providers Name Role Phone Toña Jones MD Primary Care Provider Ingrid Santana RN Unavailable Unavailable Momo Forbes Primary Care Provider Encounter Details Date Type Department Care Team Description 05/12/2011 Historic Results [facility] Provider, MD Marcela Social History Tobacco Use [...] on filedocumented in this encounter Care Teams Bullet Swaging Machine Operator Relationship Specialty Start Date End Date Toña Jones MD PCP - General Nephrology 11/25/11 01/01/14 Momo Forbes PCP - General Family Practice 01/02/[address] [address] Siers, Ingrid A, RN Registered Nurse Transplant 02/10/12 documented as of this encounter
--- OUTSIDE RECORDS SUMMARY | 2022-06-28 13:28 | XMS_ITS | Encounter Summary ---
:1950 Author Organization [place] Address [address] 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 [...] LAB - BLOOD ORDERABLES Performing Organization Address City/[facility] Phon e Number [address] LABS Antibody titer red cell (02/08/2012 7:26 AM CDT) [facility] Method [place] Signature Antibody Titer Anti B [facility] titer IgM: [place] 4 Ig [place] LAB[facility] Specimen Anatomical Collection Method Collection Time Receive d Time (Source) Location / / Volume Laterality Blood specimen 02/08/2012 7:26 AM 012 7:31 (specimen) CDT AM CDT Darian Joshi MD LAB - BLOOD BANK TEST ORDER Performing Organization Address [facility] Phon e Number [address] LABS Prostate spec antigen screen (02/08/2012 7:25 AM CDT) athologist Signature PSA 0.44 0 - 4 ug/L [facility] LABS Comment: PSA results are about [...] Phon e Number [facility] [address] LABS Hemoglobin A1c (02/08/2012 7:25 AM CDT) athologist Signature Hemoglobin A1C 5.3 4.3 - 6.0 [facility] LABS Specimen Anatomical Collection Method Collection Time Receive d Time (Source) Location / / Volume Laterality Blood specimen 02/08/2012 7:25 AM 012 7:30 (specimen) CDT AM CDT Darian Joshi MD LAB - BLOOD ORDERABLES Performing Organization Address City/State/ZIP Code Phon e Number [facility] [address] LABS C-peptide (02/08/2012 7:25 AM CDT) athologist Signature C Peptide 5.3 0.9 - 6.9 [facility] ng/mL [place] [facility]S Specimen Anatomical Collection Method Collection Time Receive d Time (Source) Location / / Volume Laterality Blood specimen 02/08/2012 7:25 AM 012 7:30 (specimen) CDT AM CDT Darian Joshi MD LAB - BLOOD ORDERABLES Performing Organization Address City/[facility]/ZIP Code Phon e Number [address] LABS Cardiolipin antibody IgG and IgM (02/08/2012 7:25 AM CDT) [facility] gist Method Time Signature Cardiolipin IgG <15.0 0 - 15.0 [facility] Shaye Interpretation: ??Negative GPL UNI VERSITY [...] Phon e Number [facility] [address] [place] [address] [place] [facility] LABS (ABNORMAL) Comprehensive metabolic panel (02/08/2012 7:25 AM CDT) [facility] gist Method Time Signature Sodium 143 133 - 144 [facility] mmol/L [facility] Potassium 4.4 3.4 - 5.3 [facility] mmol/L [facility] Chloride 106 94 - 109 [facility] mmol/L [facility] Carbon Dioxide 24 20 - 32 [facility] mmol/L [facility] Anion Gap 13 6 - 17 [facility] mmol/L [facility] Glucose 126 (H) 60 - 99 [facility] mg/dL [facility] Urea Nitrogen 32 (H) 7 - 30 [facility] mg/dL [facility] Creatinine 5.46 (H) 0.66 - [facility] 1.25 UNIVERSITY mg/dL CAMPUS LABS GFR Estimate 11 (L) >60 [facility] mL/min/1. [address] LABS GFR Estimate If 13 (L) >60 [facility] Black mL/min/1. [address] LABS Calcium 8.5 8.5 - [facility] 10.4 UNIVERSITY mg/dL CAMPUS LABS Bilirubin Total 0.8 0.2 - 1.3 [facility] mg/dL [facility] Albumin 3.8 3.3 - 4.9 [facility] g/dL [facility] Protein Total 6.8 6.8 - 8.8 [facility] g/dL [facility] Alkaline 92 40 - 150 [facility] Phosphatase U/L [facility] ALT 13 0 - 70 [facility] U/L [facility] AST 18 0 - 45 [facility] U/L [facility] Specimen Anatomical Collection Method Collection Time Receive d Time (Source) Location / / Volume Laterality Blood specimen 02/08/2012 7:25 AM 012 7:30 (specimen) CDT AM CDT Darian Joshi MD LAB - BLOOD ORDERABLES Performing Organization Address City/[facility]/ZIP Code Phon e Number [facility] [address] [place] [address] [facility] LABS Lipid Profile (02/08/2012 7:25 AM CDT) P athologist Signature Cholesterol 134 0 - 200 [facility] mg/dL CAMPUS LABS Comment: LDL Cholesterol is the primary guide to therapy. The NCEP recommends further evaluation of: patients with cholesterol greater than 200 mg/dL if additional risk facto rs are present, cholesterol greater than 240 mg/dL, triglycerides greater than 1 50 mg/dL, or HDL less than 40 mg/dL. Triglycerides 74 0 - 150 mg/dL [facility] LABS HDL Cholesterol 42 40 - 110 mg/dL [facility] LAB[facility] LDL Cholesterol Calculated 77 0 - 129 mg/dL [facility] LABS Comment: LDL Cholesterol is the primary guide to therapy: LDL-cholesterol goal in high risk patients is <100 mg/dL and in very high risk patients is <70 mg/dL. VLDL-Cholesterol 15 0 - 30 mg/dL [facility] LABS Cholesterol/HDL Ratio 3.2 0.0 - 5.0 [facility] Specimen Anatomical Collection Method Collection Time Receive d Time (Source) Location / / Volume Laterality Blood specimen 02/08/2012 7:25 AM 012 7:30 (specimen) CDT AM CDT Darian Joshi MD LAB - BLOOD ORDERABLES Performing Organization Address City/[facility]/ZIP Code Phon e Number [facility] [address] [place] [address] [facility] LABS ABO/Rh type and screen (02/08/2012 7:25 AM CDT) Patholo gist Method Time Signature ABO A [facility] RH(D) Pos [facility] Antibody Neg [facility] Screen [facility] Specimen 02/11/2012 [facility] Expires [facility] Specimen Anatomical Collection Method Collection Time Receive d Time (Source) Location / / Volume Laterality Blood specimen 02/08/2012 7:25 AM 012 7:30 (specimen) CDT AM CDT Darian Joshi MD LAB - BLOOD BANK TEST ORDER Performing Organization Address City/State/ZIP Code Phon e Number [facility] [address] [place] [address] [facility] LABS Varicella zoster antibody IgG (02/08/2012 7:25 AM CDT) Patholo gist Method Time Signature Varicella 1023.00 [facility] [place] IgG [place] Immune Status CAMPUS LABS Ratio Vari [place] Positive, [facility] IgG Interp suggests [place] prev. CAMPUS LABS exposure and probable immunity Specimen Anatomical Collection Method Collection Time Receive d Time (Source) Location / / Volume Laterality Blood specimen 02/08/2012 7:25 AM 012 7:30 (specimen) CDT AM CDT Darian Joshi MD LAB - BLOOD ORDERABLES Performing Organization Address City/State/ZIP Code Phon e Number [facility] 500 [place], [place] [phone] [place] [address] LABS Anti treponema EIA (02/08/2012 7:25 AM CDT) Analysis Performed At Patho logist Time Signature Treponema Negative NEG [facility] Antibody [place] [facility] Specimen Anatomical Collection Method Collection Time Receive d Time (Source) Location / / Volume Laterality Blood specimen 02/08/2012 7:25 AM 012 7:30 (specimen) CDT AM CDT Darian Joshi MD LAB - BLOOD ORDERABLES Performing Organization Address City/State/ZIP Code Phon e Number [facility] 500 [place], [place] [phone] [place] [address] LABS HIV 1 and 2 Antibody (02/08/2012 7:25 AM CDT) Analysis Performed At Patho logist Time Signature HIV 1&2 Negative NEG [facility] Antibody [facility] Specimen Anatomical Collection Method Collection Time Receive d Time (Source) Location / / Volume Laterality Blood specimen 02/08/2012 7:25 AM 012 7:30 (specimen) CDT AM CDT Darian Joshi MD LAB - BLOOD ORDERABLES Performing Organization Address City/State/ZIP Code Phon e Number [facility] 500 [place], [place] [phone] [place] [address] LABS Hepatitis C antibody (02/08/2012 7:25 AM CDT) Analysis Performed At Patho logist Time Signature Hepatitis C Negative NEG [facility] Antibody [facility] LABS Specimen Anatomical Collection Method Collection Time Receive d Time (Source) Location / / Volume Laterality Blood specimen 02/08/2012 7:25 AM 012 7:30 (specimen) CDT AM CDT Darian Joshi MD LAB - BLOOD ORDERABLES Performing Organization Address City/[facility]/ZIP Code Phon e Number [address] LABS Hepatitis B surface antigen (02/08/2012 7:25 AM CDT) Analysis Performed At Patho logist Time Signature Hep B Surface Negative NEG [facility] Agn [facility] LABS Specimen Anatomical Collection Method Collection Time Receive d Time (Source) Location / / Volume Laterality Blood specimen 02/08/2012 7:25 AM 012 7:30 (specimen) CDT AM CDT Darian Joshi MD LAB - BLOOD ORDERABLES Performing Organization Address City/[facility]/ZIP Code Phon e Number [address] LABS Hepatitis B surface antibody (02/08/2012 7:25 AM CDT) P athologist Signature Hep B Surface 135.0 [facility] LABS Comment: Positive, Patient is [...] LAB - BLOOD ORDERABLES Performing Organization Address City/[facility]/ZIP Code Phon e Number [address] LABS Hepatitis B core antibody (02/08/2012 7:25 AM CDT) Analysis Performed At Patho logist Time Signature Hepatitis B Negative NEG [facility] LABS Specimen Anatomical Collection Method Collection Time Receive d Time (Source) Location / / Volume Laterality Blood specimen 02/08/2012 7:25 AM 012 7:30 (specimen) CDT AM CDT Darian Joshi MD LAB - BLOOD ORDERABLES Performing Organization Address City/[facility]/ZIP Code Phon e Number [facility] 500 [place], [place] [phone] [place] [address] LABS EBV VCA IgG Antibody (02/08/2012 7:25 AM CDT) athologist Signature EBV VCA IgG 188.00 U/mL [facility] Antibody [place] [facility] Comment: Positive, suggests immunologic exposure. Specimen Anatomical Collection Method Collection Time Receive d Time (Source) Location / / Volume Laterality Blood specimen 02/08/2012 7:25 AM 012 7:30 (specimen) CDT AM CDT Darian Joshi MD LAB - BLOOD ORDERABLES Performing Organization Address City/[facility]/ZIP Code Phon e Number [address] [address] [facility] LABS CMV IGG ANTIBODY (02/08/2012 7:25 AM CDT) athologist Signature CMV IgG 3.30 U/mL [facility] Antibody [place] [facility] Comment: Positive for anti-CMV IgG Specimen Anatomical Collection Method Collection Time Receive d Time (Source) Location / / Volume Laterality Blood specimen 02/08/2012 7:25 AM 012 7:30 (specimen) CDT AM CDT Darian Joshi MD LAB - BLOOD ORDERABLES Performing Organization Address City/[facility]/ZIP Code Phon e Number [address] [address] [facility] LABS Immunology recipient: SOT HLA Workup (ABC,DR,DQ,PRA,Crossmatch) (02/08/2012 7:25 AM CDT) [facility] gist Method Time Signature Immunology SOT HLA WORKUP [facility] Test Name [facility] Immunology Specimen [facility] Result received - [facility] CAMPUS LABS report to follow upon completion. Specimen Anatomical Collection Method Collection Time Receive d Time (Source) Location / / Volume Laterality Blood specimen 02/08/2012 7:25 AM 012 7:30 (specimen) CDT AM CDT Darian Joshi MD LAB - IMMUNOLOGY ORDERABLES Performing Organization Address City/State/ZIP Code Phon e Number [address] [place] [address] [place] [facility] ([facility]NORMAL) CBC with platelets differential (02/08/2012 7:25 AM CDT) [facility] gist Method Time Signature WBC 6.3 4.0 - [facility] 11.0 [place] 10e9/L [place] [facility] RBC Count 3.97 (L) 4.4 - 5.9 [facility] 10e12/L [facility] Hemoglobin 12.0 (L) 13.3 - [facility] 17.7 g/dL [facility] Hematocrit 36.3 (L) 40.0 - [facility] 53.0 % [facility] MCV 91 78 - 100 [facility] fl [facility] MCH 30.2 26.5 - [facility] 33.0 pg [facility] MCHC 33.1 31.5 - [facility] 36.5 g/dL [facility] RDW 15.3 (H) 10.0 - [facility] 15.0 % [facility] Platelet Count 144 (L) 150 - 450 [facility] 10e9/L [facility] Diff Method Automated [facility] Method [facility] % Neutrophils 57.7 40 - 75 % [facility] LABS % Lymphocytes 27.7 20 - 48 % [facility] % Monocytes 8.2 0 - 12 % [facility] % Eosinophils 6.1 (H) 0 - 6 % [facility] LAB[facility] % Basophils 0.3 0 - 2 % [facility] LAB[facility] % Immature 0.0 0 - 0.4 % [facility] Granulocytes [facility] Absolute 3.6 1.6 - 8.3 [facility] Neutrophil 10e9/L [facility] Absolute 1.7 0.8 - 5.3 [facility] Lymphocytes 10e9/L [facility] Absolute 0.5 0.0 - 1.3 [facility] Monocytes 10e9/L [facility] Absolute 0.4 0.0 - 0.7 [facility] Eosinophils 10e9/L [facility] Absolute 0.0 0.0 - 0.2 [facility] Basophils 10e9/L [facility] Abs Immature 0.0 0 - 0.03 [facility] Granulocytes 10e9/L [facility] Specimen Anatomical Collection Method Collection Time Receive d Time (Source) Location / / Volume Laterality Blood specimen 02/08/2012 7:25 AM 012 7:30 (specimen) CDT AM CDT Darian Joshi MD LAB - BLOOD ORDERABLES Performing Organization Address City/[facility]/ZIP Code Phon e Number [facility] [address] LABS Lupus panel (02/08/2012 7:25 AM CDT) Component Value Ref Test Analysis Performed At Patholo gist Range Method Time Signature Lupus Result Negative NEG [facility] (Note) [place] COMMENTS: [place] [facility] The INR is normal. APTT is normal. ??1:2 Mix is not indicated. DRVVT Screen is normal. Thrombin time is normal. NEGATIVE TEST; A LUPUS ANTICOAGULANT WAS NOT DETECTED IN THI S SPECIMEN WITHIN THE LIMITS OF THE TESTING REPERTOIRE. If the clinical picture is strongly suggestive of an antipho spholipid syndrome, recommend anticardiolipin and hyqh-2-pzbgrorwvrns (IgG and IgM) antibody tests. Dee Duenas M.D. ??[phone] 02-09-2012. APTT'S: ?? Seconds Reagent = Stago [...] LAB - BLOOD ORDERABLES Performing Organization Address City/[facility]/ZIP Code Phon e Number [facility] [address] LABS Thrombin time (02/08/2012 7:25 AM CDT) athologist Signature Thrombin Time 16.7 13.0 - [facility] 19.0 sec CAMPUS LABS Specimen Anatomical Collection Method Collection Time Receive d Time (Source) Location / / Volume Laterality Blood specimen 02/08/2012 7:25 AM 012 7:30 (specimen) CDT AM CDT Darian Joshi MD LAB - BLOOD ORDERABLES Performing Organization Address City/[facility]/ZIP Code Phon e Number [facility] 500 [place], [place] [phone] [place] [address] LABS Partial thromboplastin time (02/08/2012 7:25 AM CDT) P athologist Signature PTT 29 22 - 37 sec [facility] LABS Specimen Anatomical Collection Method Collection Time Receive d Time (Source) Location / / Volume Laterality Blood specimen 02/08/2012 7:25 AM 012 7:30 (specimen) CDT AM CDT Darian Joshi MD LAB - BLOOD ORDERABLES Performing Organization Address City/[facility]/ZIP Code Phon e Number [address] LABS INR (02/08/2012 7:25 AM CDT) P athologist Signature INR 1.11 0.86 - 1.14 [facility] LABS Specimen Anatomical Collection Method Collection Time Receive d Time (Source) Location / / Volume Laterality Blood specimen 02/08/2012 7:25 AM 012 7:30 (specimen) CDT AM CDT Draian Joshi MD LAB - BLOOD ORDERABLES Performing Organization Address City/State/ZIP Code Phon e Number [phone] [place] [address] LABS Factor 2 and 5 mutation analysis (02/08/2012 7:07 AM CDT) Component Value Ref Test Analysis Performed At [facility] gist Range Method Time Signature Copath Report Patient Name: ELINOR GUTHRIE MR#: [id number] Specimen #: [id number] Collected: 02/08/2012 07:07 Received: 02/08/2012 09:00 Reported: 02/11/2012 14:03 Ordering Phy(s): DARIAN JOSHI TEST(S) REQUESTED: A: Factor 5 Leiden and Factor 2 by PCR B: DNA Isolation, High purity extraction SPECIMEN DESCRIPTION: Blood METHODOLOGY: ?? The regions of genomic DNA containing the G1 691A Factor 5 gene mutation (Factor V Leiden) and the Factor 2(Prothrombin M89361T) gene mutation were simultaneously amplified using the Ofidium[employer] BioHorizonse chain reaction. ??The amplified products were digested with restri ction endonuclease TaqI and products were analyzed by gel electrop horesis. RESULTS: FACTOR 5-LEIDEN RESULTS: Mutation analyzed: ? 1691G>A Factor 5 Mutation Interpretation: ?ABSENT Factor 5 Mutation genotype: ?G/G FACTOR 2/PROTHROMBIN RESULTS: Mutation analyzed: ? 08929J>A Factor 2 Mutation Interpretation: ?ABSENT Factor 2 Mutation genotype: ?G/G INTERPRETATION: The patient is negative for the Factor 5 mutation and negati ve for the Factor 2 mutation. This test was developed and its performance determined by [facility] ??Molecular Diagnostic Laboratory. It has [...] By: Liliya Stone MD TESTING LAB LOCATION: [place] [id number] [facility] [address] [place] [id number] COLLECTION SITE: Client: ??[facility] Location: ??UUTXO (B) Specimen Anatomical Collection Method Collection Time Receive d Time (Source) Location / / Volume Laterality 02/08/2012 7:07 AM 2 9:00 CDT AM CDT Provider Unknown LAB - GENOMICS Performing Organization Address City/State/ZIP Code Phon e Number [facility] (ABNORMAL) Routine UA with microscopic (02/08/2012 7:06 AM CDT) Component Value Ref Test Analysis Performed At [facility] gist Range Method Time Signature Color Urine Light Yellow [facility] [place] [facility] Appearance Urine Clear [facility] Glucose Urine 300 (A) NEG [facility] mg/dL [facility] Bilirubin Urine Negative [facility]G [facility] Ketones Urine Negative NEG [facility] mg/dL [facility] Specific [place] 1.010 1.003 - [facility] Urine 1.035 [facility] Blood Urine Negative NEG [facility] pH Urine 7.5 (H) 5.0 - [facility] 7.0 pH UNIVERSITY CAMPUS LABS Protein Albumin 300 (A) NEG [facility] Urine mg/dL UNIVERSITY [facility]AMP[facility] LABS Urobilinogen Normal 0.0 - [facility] mg/dL 2.0 UNIVERSITY mg/dL CAMPUS LABS Nitrite Urine Negative NEG [facility]ITY [facility]S Leukocyte Negative NEG [facility] Esterase Urine [facility] [place] [facility] Source Unspecified [facility] Urine UN[facility]ITY [facility]AMP[facility] LABS WBC Urine 1 0 - 2 [facility] /HPF [facility] [place] [facility] RBC Urine <1 0 - 2 [facility] /HPF [facility] Hyaline Casts 3 (H) 0 - 2 [facility] /LPF [facility] [place] [facility] Specimen Anatomical Collection Method Collection Time Receive d Time (Source) Location / / Volume Laterality Urine specimen 02/08/2012 7:06 AM 012 7:08 (specimen) CDT AM CDT Darian Joshi MD LAB - URINE ORDERABLES Performing Organization Address City/State/ZIP Code Phon e Number [facility] [address] [facility] documented in this encounter Visit Diagnoses Diagnosis Diabetes mellitus, type 2 (H) Type II or unspecified type diabetes aung litus without mention of complication, not stated as uncontrolled End stage renal disease (H) End stage renal disease documented in this encounter Care Teams Cdl Dedicated Truck Driver Relationship Specialty Start Date End Date Toña Jones MD PCP - General Nephrology 11/25/11 01/01/14 documented as of this encounter
--- OUTSIDE RECORDS SUMMARY | 2022-06-28 13:28 | XMS_ITS | Encounter Summary ---
:1950 Author Organization [place] Address [address] [facility] [place] [address] Care Team Providers Name Role Phone Toña [...] filedocumented in this encounter Care Teams Medical Instrument Cable Fabricator Relationship Specialty Start Date End Date Toña Jones MD PCP - General Nephrology 11/25/11 01/01/14 Momo Forbes PCP - General Family Practice 01/02/14 [facility] [address] [place] [address] Ingrid Santana, RN Registered Nurse Transplant 02/10/12 documented as of this encounter
--- OUTSIDE RECORDS SUMMARY | 2022-06-28 13:28 | XMS_ITS | Encounter Summary ---
:1950 Author Organization [place] Address [address] [place] [address]. [place] [address] Care Team Providers Name Role Phone Toña Jones MD Primary Care Provider Ingrid Santana RN Unavailable Unavailable Momo Forbes Primary Care Provider Encounter Details Date Type Department Care Team Description 05/25/2010 Historic Results [facility] Provider, MD Marcela Social History Tobacco Use [...] an attachment that is no t available. Marecla Cordero MD ECG ORDERABLES documented in this encounter Visit Diagnoses Not on filedocumented in this encounter Care Teams Yarn Winder Relationship Specialty Start Date End Date Toña Jones MD PCP - General Nephrology 11/25/11 01/01/14 Momo Forbes PCP - General Family Practice 01/02/[address] [address] Siers, Ingrid A, RN Registered Nurse Transplant 02/10/12 documented as of this encounter
--- OUTSIDE RECORDS SUMMARY | 2022-06-28 13:28 | XMS_ITS | Encounter Summary ---
:1950 Author Organization [place] Address [address] [place] [address] Care Team Providers Name Role Phone Toña [...] an attachment that is no t available. Mracela Provider ECG ORDERABLES LAB RESULT - HIM SCAN - ARCHIVE (05/04/2011 8:28 AM CDT) Specimen (Source) Anatomical Location Collection Method / Collectio n Time Received Time / Laterality Volume Narrative This result has an attachment that is no t available. Marcela Provider LAB - BLOOD ORDERABLES documented in this encounter Visit Diagnoses Not on filedocumented in this encounter Care Teams Manager Treasury Relationship Specialty Start Date End Date Toña Jones MD PCP - General Nephrology 11/25/11 01/01/14 Momo Forbes PCP - General Family Practice 01/02/14 [facility] [address] [place] [address] Ingrid Santana, RN Registered Nurse Transplant 02/10/12 documented as of this encounter
--- OUTSIDE RECORDS SUMMARY | 2022-06-28 13:28 | XMS_ITS | Encounter Summary ---
:1950 Author Organization [place] Address [address] [facility] [place] [address] Care Team Providers Name Role Phone Toña Jones MD Primary Care Provider Ingrid Santana RN Unavailable Unavailable Momo Forbes Primary Care Provider Encounter Details Date Type Department Care Team Description 08/30/2011 Historic Results [facility] Provider, MD Marcela Social History Tobacco Use Types Packs/Day Years Used Date Smoking Tobacco: Never Assessed Sex Assigned at Date Recorded Not on file documented as of this encounter Plan of Treatment Not on filedocumented as of this encounter Procedures Procedure Name Priority Date/Time Associated Diagnosis Comme nts EKG CARDIAC - HIM SCAN 08/30/2011 8:28 AM SOCIAL WORKER - ARCHIVE ECHO CARDIAC - HIM SCAN 08/30/2011 8:27 AM SOCIAL WORKER - ARCHIVE documented in this encounter Results EKG CARDIAC - HIM SCAN - ARCHIVE (08/30/2011 8:28 AM SOCIAL WORKER) Specimen (Source) Anatomical Location Collection Method / Collectio n Time Received Time / Laterality Volume Narrative This result has an attachment that is no t available. Gich Provider ECG ORDERABLES ECHO CARDIAC - HIM SCAN - ARCHIVE (08/30/2011 8:27 AM SOCIAL WORKER) Anatomical Region Laterality Modality Echocardiography Specimen (Source) Anatomical Location Collection Method / Collectio n Time Received Time / Laterality Volume Narrative This result has an attachment that is no t available. Marcela Provider CV ECHO ORDERABLES documented in this encounter Visit Diagnoses Not on filedocumented in this encounter Care Teams Clinical Care Coordinator Relationship Specialty Start Date End Date Toña Jones MD PCP - General Nephrology 11/25/11 01/01/14 Momo Forbes PCP - General Family Practice 01/02/14 [facility] [address] [place] [address] Ingrid Santana, RN Registered Nurse Transplant 02/10/12 documented as of this encounter
--- OUTSIDE RECORDS SUMMARY | 2022-06-28 13:28 | XMS_ITS | Encounter Summary ---
:1950 Author Organization [place] Address [address] [place] [address]. [place] [address] Care Team Providers Name Role Phone Toña Jones MD Primary Care Provider Ingrid Santana RN Unavailable Unavailable Momo Forbes Primary Care Provider Encounter Details Date Type Department Care Team Description 06/05/2008 Historic Results [facility] Provider, MD Marcela Social History Tobacco Use [...] on filedocumented in this encounter Care Teams Scrap Iron Cutter Relationship Specialty Start Date End Date Toña Jones MD PCP - General Nephrology 11/25/11 01/01/14 Momo Forbes PCP - General Family Practice 01/02/[address] [address] Siers, Ingrid A, RN Registered Nurse Transplant 02/10/12 documented as of this encounter
--- OUTSIDE RECORDS SUMMARY | 2022-06-28 13:28 | XMS_ITS | Encounter Summary ---
:1950 Author Organization [place] Address [address] [facility] [place] [address] Care Team Providers Name Role Phone Toña [...] filedocumented in this encounter Care Teams Casting Wheel Operator Helper Relationship Specialty Start Date End Date Toña Jones MD PCP - General Nephrology 11/25/11 01/01/14 Momo Forbes PCP - General Family Practice 01/02/14 [facility] [address] [place] [address] Ingrid Santana, RN Registered Nurse Transplant 02/10/12 documented as of this encounter
--- OUTSIDE RECORDS SUMMARY | 2022-06-28 13:28 | XMS_ITS | Encounter Summary ---
:1950 Author Organization [place] Address [facility] [place] [address] Care Team Providers Name Role Phone Toña Jones MD Primary Care Provider Reason for Visit Reason Comments Transplant Evaluation Kidney transplant evaluation - Diabetes, End Stage Renal Disease Encounter Details Date Type Department Care Team Description 02/08/2012 Office Visit The Transplant Edda Cardenas, Ty Blink, DM (diabetes 2nd Floor, Clinic 2A MD mellitus), type 2 (H) Tommy Wilburn (Primar y Dx) [address] [phone] Social History Tobacco Use Types Packs/Day Years [...] uncontrolled documented in this encounter Care Teams Butcher Meat Relationship Specialty Start Date End Date Toña Jones MD PCP - General Nephrology 11/25/11 01/01/14 documented as of this encounter
--- OUTSIDE RECORDS SUMMARY | 2022-06-28 13:28 | XMS_ITS | Encounter Summary ---
:1950 Author Organization [place] Address [address] [place] [address] Care Team Providers Name Role Phone Toña Jones MD Primary Care Provider Reason for Visit Reason Onset Date Comments Patient Reminder 02/01/2012 Encounter Details Date Type Department Care Team Description 02/01/2012 PRE VISIT Nephrology Joseph Quintana, Patient Reminder 2nd Floor, Clinic 2A MD Tommy Wilburn [address] [place] [address] 1932 [address] [place], [place] [address] [place] [address] (Wo rk) [id number] [phone] Social History Tobacco Use Types Packs/Day Years [...] filedocumented in this encounter Care Teams Crane Manager Relationship Specialty Start Date End Date Toña Jones MD PCP - General Nephrology 11/25/11 01/01/14 documented as of this encounter
--- OUTSIDE RECORDS SUMMARY | 2022-06-28 13:28 | XMS_ITS | Encounter Summary ---
:1950 Author Organization [place] Address [address] [place] [address] Care Team Providers Name Role Phone Toña Jones MD Primary Care Provider Ingrid Santana RN Unavailable Unavailable Encounter Details Date Type Department Care Team Description 02/08/2012 Orders Only [facility] Jesus Cardenas Di abetes mellitus, type 2 (H); [facility] Gordo oneal MD End stage renal disease (H); [address] [place]AG[place] [address] Social History Tobacco Use Types Packs/Day Years [...] Results ABO type (02/08/2012 1:52 PM CDT) [facility] Method Time Signature ABO A [facility] RH(D) Pos [facility] Specimen 02/11/2012 [facility] Expires [facility] Specimen Anatomical Collection Method Collection Time Receive d Time (Source) Location / / Volume Laterality Blood specimen 02/08/2012 1:52 PM 012 1:54 (specimen) CDT PM CDT Chucho Joshi MD LAB - BLOOD BANK TEST ORDER Performing Organization Address City/State/ZIP Code Phon e Number [id number] [place] [address] LABS EKG 12-lead, tracing only (02/08/2012 7:30 AM CDT) [facility] Method Time Signature Ventricular Rate 60 BPM RADIOLOGY RESULTS Atrial Rate 60 BPM RADIOLOGY RESULTS [place] Interval 186 ms RADIOLOGY RESULTS QRS Duration 104 ms RADIOLOGY RESULTS QT 440 ms RADIOLOGY RESULTS QTc 440 ms RADIOLOGY RESULTS P [place] 36 degrees RADIOLOGY RESULTS R AXIS 0 degrees RADIOLOGY RESULTS T [place] 36 degrees RADIOLOGY RESULTS Interpretation Sinus [...] DEFINED documented in this encounter Care Teams Office Sweeper Relationship Specialty Start Date End Date Toña Jones MD PCP - General Nephrology 11/25/11 01/01/14 Ingrid Santana, RN Registered Nurse Transplant 02/10/12 documented as of this encounter
--- OUTSIDE RECORDS SUMMARY | 2022-06-28 13:28 | XMS_ITS | Encounter Summary ---
:1950 Author Organization [place] Address [address] [place] [address] Care Team Providers Name Role Phone Toña Jones MD Primary Care Provider Encounter Details Date Type Department Care Team Description 02/08/2012 Orders Only [facility] Thomas, Ty Blink, End sta ge kidney Pulmonary Function MD disease ( H) (Primary Laboratory Dx) 6th Floor [address] [place] [address] Social History Tobacco Use Types [...] Lab Testing (Generic) (02/08/2012 8:35 AM CDT) [facility] Method Time Signature Pulmonary COPATH Function Test Name: ? ELINOR GUTHRIE ? ID: ?[id number] Doctor: ?JESUS THOMAS ?Height: ?72.00 in ? [...] INTERPRETATION: The FVC, FEV1, FEV1/FVC ratio and RMQ75-53% are within normal limits. ??The inspiratory flow [...] disease documented in this encounter Care Teams Financial Sales Manager Relationship Specialty Start Date End Date Toña Jones MD PCP - General Nephrology 11/25/11 01/01/14 documented as of this encounter
--- OUTSIDE RECORDS SUMMARY | 2022-06-28 13:28 | XMS_ITS | Encounter Summary ---
:1950 Author Organization [place] Address [address] [facility] [place] [address] Care Team Providers Name Role Phone Unavailable Primary Care Provider Unavailable Encounter Details Date Type Department Care Team Description 07/30/2009 Results [facility] Results [address] [place] [address] [place] [id number] Social History Tobacco Use Types Packs/Day Years Used Date Smoking Tobacco: Never Assessed Sex Assigned at Date Recorded Not on file documented as of this encounter Plan of Treatment Not on filedocumented as of this encounter Procedures Procedure Name Priority Date/Time Associated Diagnosis [facility] RT DUPLEX Routine 07/30/2009 12:32 PM Results for this EXTREM VENOUS,UNI SOLAR THERMAL TECHNICIAN procedure are in OR LTD the results section. documented in this encounter Results RT DUPLEX EXTREM VENOUS,UNI OR LTD (07/30/2009 12:32 PM SOLAR THERMAL TECHNICIAN) Anatomical Region Laterality Modality Other Specimen (Source) Anatomical Collection Method Collection Time Re ceived Time Location / / Volume Laterality 07/30/2009 12:32 PM SOLAR THERMAL TECHNICIAN Impressions 07/30/2009 4:21 PM SOLAR THERMAL TECHNICIAN ULTRASOUND VENOUS LOWER EXTREMITY UNILAT ERAL RIGHT [...]
--- OUTSIDE RECORDS SUMMARY | 2022-06-28 13:28 | XMS_ITS | Encounter Summary ---
:1950 Author Organization [place] Address [address] [facility] [place] [address] Care Team Providers Name Role Phone Toña Jones MD Primary Care Provider Ingrid Santana RN Unavailable Unavailable Encounter Details Date Type Department Care Team Description 12/07/2011 Orders Only Nephrology Chucho Joshi MD Dialysis patient (H) 2nd Floor, Clinic 2A [address] [place] (Primary Dx) Tommy Ruiz[address] [place] [address] [place], [place] [phone] (Wo rk) [address] [phone] Social History Tobacco Use Types Packs/Day Years Used Date Smoking Tobacco: Never Assessed Sex Assigned at Date Recorded Not on file documented as of this encounter Plan of Treatment Not on filedocumented as of this encounter Visit Diagnoses Diagnosis Dialysis patient (H) - Primary Renal dialysis status documented in this encounter Care Teams Lumber Grader Relationship Specialty Start Date End Date Toña Jones MD PCP - General Nephrology 11/25/11 01/01/14 Ingrid Santana RN Registered Nurse Transplant 02/10/12 documented as of this encounter
--- OUTSIDE RECORDS SUMMARY | 2022-06-28 13:29 | XMS_ITS ---
:1950 Author Organization [place] Address [address] [place] [address] Care Team Providers Name Role Phone Momo Forbes Primary Care Provider Joseph Quintana MD Unavailable [facility] [place] [facility] [place] - MNUMOrgan Received: Right KidneyTransplanted on 02/02/2014Marked as Active Follow-up on 02/02/2014 Kidney CoordinatorCHAPO Durhamhone: N/AFax: N/AEmail: N/A [place] Organ Diagnosis Organ Primary Contributory Kidney Diabetes Mellitus - Type II Infection History Noted Survival Infection Treatment Organism Resolved 09/18/2020 6 years 7 months Gram-negative Surgery, Medical bacterial infection management 09/17/2020 6 years 7 months Bacterial infection Antibiotics Donor Information Organ ABO Source Meets Risk HLA Match Mismatches [facility] Criteria Right Kidney A1 DBD [...] N/A G German Jones MD Referring Physician [phone] [email or web address] Post-Transplant Pre-Transplant Admitted: 02/02/2014 Referred: 12/07/2011 Transplanted: 02/02/2014 Evaluation began: 02/08/2012 Discharged: 02/08/2014 Committee: 02/16/2012 Center waitlisted: 02/18/2012 Dialysis History Dialysis History Start End Type Comments Center 09/06/2011 02/02/2014 Hemo Dialysis Days per week -- [facility] ([facility] Dialysis Center Information Center Phone Fax Address [facility] [phone] [address] (ESRD) [facility] [phone]
--- OUTSIDE RECORDS SUMMARY | 2022-06-28 13:29 | XMS_ITS | Encounter Summary ---
:1950 Author Organization [place] Address [address] [place] [address]. [place] [address] Care Team Providers Name Role Phone Toña Jones MD Primary Care Provider Ingrid Santana RN Unavailable Unavailable Momo Forbes Primary Care Provider Encounter Details Date Type Department Care Team Description 12/13/2005 Historic Results [facility] Provider, MD Marcela Social History [...] filedocumented in this encounter Care Teams Lead Ruby On Rails Developer Relationship Specialty Start Date End Date Toña Jones MD PCP - General Nephrology 11/25/11 01/01/14 Momo Forbes PCP - General Family Practice 01/02/[address] [address] Siers, Ingrid A, RN Registered Nurse Transplant 02/10/12 documented as of this encounter
--- OUTSIDE RECORDS SUMMARY | 2022-06-28 13:29 | XMS_ITS | Encounter Summary ---
:1950 Author Organization [place] Address [address] [facility] [place] [address] Care Team Providers Name Role Phone Toña [...] filedocumented in this encounter Care Teams Freelance Photographer Relationship Specialty Start Date End Date Toña Jones MD PCP - General Nephrology 11/25/11 01/01/14 Momo Forbes PCP - General Family Practice 01/02/14 [facility] [address] [place] [address] Ingrid Santana, RN Registered Nurse Transplant 02/10/12 documented as of this encounter
--- OUTSIDE RECORDS SUMMARY | 2022-06-28 13:29 | XMS_ITS | Encounter Summary ---
:1950 Author Organization [place] Address [address] [place] [address]. [place] [address] Care Team Providers Name Role Phone Toña [...] on filedocumented in this encounter Care Teams Shading Painter Relationship Specialty Start Date End Date Toña Jones MD PCP - General Nephrology 11/25/11 01/01/14 Momo Forbes PCP - General Family Practice 01/02/[address] [address] Siers, Ingrid A, RN Registered Nurse Transplant 02/10/12 documented as of this encounter
--- OUTSIDE RECORDS SUMMARY | 2022-06-28 13:29 | XMS_ITS | Encounter Summary ---
:1950 Author Organization [place] Address [address] [facility] [place] [address] Care Team Providers Name Role Phone Toña [...] - HIM SCAN - 11/02/2005 8:27 AM PROPULSION SYSTEMS ENGINEER ARCHIVE LAB RESULT - HIM SCAN - 11/02/2005 8:25 AM PROPULSION SYSTEMS ENGINEER ARCHIVE documented in this encounter Results LAB RESULT - HIM SCAN - ARCHIVE (11/02/2005 8:27 AM PROPULSION SYSTEMS ENGINEER) Specimen (Source) Anatomical Location Collection Method / Collectio n Time Received Time / Laterality Volume Narrative This result has an attachment that is no t available. Marcela Provider LAB - BLOOD ORDERABLES LAB RESULT - HIM SCAN - ARCHIVE (11/02/2005 8:25 AM PROPULSION SYSTEMS ENGINEER) Specimen (Source) Anatomical Location Collection Method / Collectio n Time Received Time / Laterality Volume Narrative This result has an attachment that is no t available. Marcela Provider LAB - BLOOD ORDERABLES documented in this encounter Visit Diagnoses Not on filedocumented in this encounter Care Teams Piano Teacher Relationship Specialty Start Date End Date Toña Jones MD PCP - General Nephrology 11/25/11 01/01/14 Momo Forbes PCP - General Family Practice 01/02/[address] [address] Ingrid Santana, RN Registered Nurse Transplant 02/10/12 documented as of this encounter
--- OUTSIDE RECORDS SUMMARY | 2022-06-28 13:29 | XMS_ITS | Encounter Summary ---
:1950 Author Organization [place] Address [address] [facility] [place] [address] Care Team Providers Name Role Phone Toña [...] on filedocumented in this encounter Care Teams Tubular Riveter Relationship Specialty Start Date End Date Toña Jones MD PCP - General Nephrology 11/25/11 01/01/14 Momo Forbes PCP - General Family Practice 01/02/14 [facility] [address] [place] [address] Ingrid Santana, RN Registered Nurse Transplant 02/10/12 documented as of this encounter
--- OUTSIDE RECORDS SUMMARY | 2022-06-28 13:29 | XMS_ITS | Encounter Summary ---
:1950 Author Organization [place] Address [facility] [place] [address] Care Team Providers Name Role Phone Toña Jones MD Primary Care Provider Ingrid Santana RN Unavailable Unavailable Momo Forbes Primary Care Provider Encounter Details Date Type Department Care Team Description 01/28/1998 [facility] Cesar Tejeda [facility] [address] [place], [place] [address] (Wo rk) Social History Tobacco Use Types Packs/Day Years Used Date Smoking Tobacco: Never Assessed Sex Assigned at Date Recorded Not on file documented as of this encounter Plan of Treatment Not on filedocumented as of this encounter Visit Diagnoses Not on filedocumented in this encounter Care Teams Sort Line Worker Relationship Specialty Start Date End Date Toña Jones MD PCP - General Nephrology 11/25/11 01/01/14 Momo Forbes PCP - General Family Practice 01/02/[address] [address] Ingrid Santana, RN Registered Nurse Transplant 02/10/12 documented as of this encounter
== END 2022-06-28 13:05 | disposition home or self-care (01) ==
PROVIDERS: PCP Family Medicine; Visit Provider Surgery
DX: E11.622 Type 2 diabetes mellitus with other skin ulcer (principal); L89.313 Pressure ulcer of right buttock, stage 3; L89.323 Pressure ulcer of left buttock, stage 3; L97.822 Non-pressure chronic ulcer of other part of left lower leg with fat layer exposed
CPT/HCPCS: 99215

== ENCOUNTER 2022-06-30 10:49 | Outpatient (CLI) | payer MEDICARE, BC, SELFPAY ==
--- OUTSIDE RECORDS SUMMARY | 2022-06-30 10:52 | XMS_ITS | Encounter Summary ---
:1950 Author Organization [place] Address [address] [place] [address] Care Team Providers Name Role Phone Momo Forbes Primary Care Provider Joseph Quintana MD Unavailable Reason for Visit Reason Onset Date Comments Transplant 01/21/2022 Hyperglycemia, eleva moni [facility] Encounter Details Date Type Department Care Team Description 01/21/2022 Telephone [facility] Gretta Peacock RN Trans plant Transplant Clinic (Hyperglycemia, elevated [address] [facility]) [place] [address] Social History Tobacco Use Types [...] 12:07 PM CDT ISSUE: trend up in [facility], hyperglycemia OUTCOME: phone call attempted X3. Will send letter via mail. Gretta Peacock mine surveyorBattery Hand [phone] documented in this encounter Plan of Treatment Not on filedocumented as of this encounter Visit Diagnoses Not on filedocumented in this encounter Care Teams Sugar Cane Grower Relationship Specialty Start Date End Date Momo Forbes PCP - General Family Practice 01/02/14 [facility] [address] [place] [address] Joseph Quintana, Assigned Nephrology 03/29/21 MD Provider [address] [place] [address] [address] [place] [address] documented as of this encounter
--- OUTSIDE RECORDS SUMMARY | 2022-06-30 10:52 | XMS_ITS | Clinical Summary ---
:1950 Author Organization [place] Address [facility] [place] [address] Care Team Providers Name Role Phone Momo [...] Problem list name updated by automated p [employer]. Provider to review Gout 12/02/2011 Peripheral neuropathy 12/02/2011 Diabetic retinopathy 12/02/2011 HTN, kidney transplant related 12/02/2011 Overview: Problem list name updated by automated p [employer]. Provider to review DM (diabetes mellitus), type 2 12/02/2011 History of tobacco use 12/02/2011 Thrombocytopenia 12/02/2011 Malaise and fatigue 12/02/2011 Overview: Problem list name updated by automated p [employer]. Provider to review Depression Resolved Problems Problem [...] Solid Organ Gretta Peacock, Transplant (C ovid architectural engineering teacher reassessment/) 06/07/2022 Telephone Solid Organ Gretta Peacock, Transplant (C ovid architectural engineering teacher reassessment ) 06/05/2022 Telephone Solid Organ Evelyn Schuster, architectural engineering teacher 06/02/2022 Documentation Only NephSatish Reyes MD 05/06/2022 Telephone Solid Organ Gretta Peacock, Left Message To architectural engineering teacher Call (Left VM 05/06/2022 at 11:55PM., Wante d to discuss lab results) 05/04/2022 Telephone Solid Organ Gretta Peacock Transplant La b architectural engineering teacher (Elevated serum creatinine and proteinuria) 05/02/2022 Telephone Solid Organ Gretta Peacock, Erroneous architectural engineering teacher encounter-disre sebastian 04/29/2022 External Order Lab Outside, Results Provider 04/13/2022 Telephone Solid Organ Gretta Peacock, Voicemail architectural engineering teacher from Last 3 Months Immunizations Name Administration [...] Comments Blood Pressure 169/76 10/09/2019 2:35 PM CO OP Pulse 67 10/09/2019 2:35 PM CO OP Temperature 36.5 ??C (97.7 ??F) 10/17/2018 1:54 PM CO OP Respiratory Rate 18 10/25/2016 4:39 PM CO OP Oxygen Saturation 95% 10/09/2019 2:35 PM CO OP Inhaled Oxygen Concentration - - Weight 132.5 kg (292 lb 1.6 oz) 10/09/2019 2:35 PM CO OP Height 182.9 cm (6') 10/10/2017 2:25 PM CO OP Body Mass Index 39.62 10/10/2017 2:25 PM CO OP Plan of Treatment Health Maintenance Due Date [...] this topic Medical Devices Explanted Type Area Rabies Inspector Device Shelf Model / Identifier Expiration Serial / Date Lot Stent Ureteral Childress Renal Transplant [id number] Right: [employer] 11/19/2016 [id number] / Implanted: Qty: 1 on 02/02/2014 by Migel Viveros MD at [facility] [employer] / Explanted: Qty: 1 on 04/01/2014 by Celina Helton MD at [facility] [id number] Procedures Procedure Name Priority Date/Time Associated Comments [...] Platelets & Differential (04/29/2022 11:40 AM CDT) [facility] Method Time Signature WBC Count 4.89 [...] City/[facility]/ZIP Code Phon e Number BREEZE PFT [...] Address T ype Group Dates MEDICARE MEDICARE [id number] 2011-Prese [phone] ATTN RONEN ID Medicare nt [address] [place] [address] BCBS BCBS OF [place] [id number] 2016-Prese [phone] [address] [address] Indemnity nt 00 [place] [address] Diego Guthrie Personal/Family Self [address] [place] (Home) [place] [address] Advance Directives For more information, please contact: [phone] Latest Code Status on File Code Status Date Activated Date Inactivated Comments Full Code 04/01/2014 9:03 AM Code Status History Code Status Date Activated Date Inactivated Comments Full Code 02/08/2014 7:12 AM 04/01/2014 9:03 AM Full Code 02/03/2014 12:56 AM 02/08/2014 7:12 AM Care Teams Knot Tying Operator Relationship Specialty Start Date End Date Momo Forbes PCP - General Family Practice 01/02/14 [facility] [address] [place] [address] Joseph Quintana, Assigned Nephrology 03/29/21 MD Provider [address] [place] [address] [address] [place], [place] [id number]
--- OUTSIDE RECORDS SUMMARY | 2022-06-30 10:52 | XMS_ITS | Encounter Summary ---
:1950 Author Organization [place] Address [address] [place] [address] Care Team Providers Name Role Phone Momo Forbes Primary Care Provider Joseph Quintana MD Unavailable Reason for Visit Reason Onset Date Comments Transplant Lab 05/04/2022 Elevated serum creat inine and proteinuria Encounter Details Date Type Department Care Team Description 05/04/2022 Telephone [facility] Gretta Peacock RN Trans plant Lab (Elevated Transplant Clinic serum creatinine and [address] proteinuria) [place] [address] Social History Tobacco Use Types [...] filedocumented in this encounter Care Teams Cake Batter Mixer Relationship Specialty Start Date End Date Momo Forbes PCP - General Family Practice 01/02/14 [facility] [address] [place] [address] Joseph Quintana, Assigned Nephrology 03/29/21 [address] [place] [address] documented as of this encounter
--- OUTSIDE RECORDS SUMMARY | 2022-06-30 10:52 | XMS_ITS | Encounter Summary ---
:1950 Author Organization [place] Address [address] [place] [address] Care Team Providers Name Role Phone Momo Forbes Primary Care Provider Mariano, Joseph Durham MD Unavailable Reason for Visit Reason Onset Date Comments Left Message To Call 05/06/2022 Left 05/06/2022 at 11:55PM., Wanted to discuss lab results Encounter Details Date Type Department Care Team Description 05/06/2022 [facility] Gretta Peacock RN Left Message To Call Transplant Clinic (Left 05/06/2022 at 9 [facility] SE 11:55PM., Wanted to [place], [place] discuss lab results) [phone] Social History [...] on filedocumented in this encounter Care Teams Subcontract Manager Relationship Specialty Start Date End Date Momo Forbes PCP - General Family Practice 01/02/14 [facility] [address] [place] [address] Joseph Quintana, Assigned Nephrology 03/29/21 MD Provider 717 [facility] 353 [facility] [address] [place] [address] documented as of this encounter
--- OUTSIDE RECORDS SUMMARY | 2022-06-30 10:52 | XMS_ITS | Encounter Summary ---
:1950 Author Organization [place] Address formerly [facility] [place] [address] Care Team Providers Name Role Phone Momo Forbes Primary Care Provider Joseph Quintana MD Unavailable Reason for Visit Reason Onset Date Comments Transplant 09/22/2021 Encounter Details Date Type Department Care Team Description 09/22[facility]2021 [facility] BOGDAN Nam [address] [place] [address] [phone] Social History Tobacco Use Types Packs/Day Years Used Date Smoking Tobacco: Former Cigars Quit : 08/22/2006 Smokeless Tobacco: Never Alcohol Use Standard Drinks/Week Comments Yes 0 (1 standard drink = 0.6 oz pure alcoho l) occasional drink. Sex Assigned at Date Recorded Not on file documented as of this encounter Miscellaneous Notes Telephone Encounter - Barbie Ugalde RN - 09/22/2021 2:16 PM FISCAL CLERK Post discharge from [facility] 09/20/21; to rehab/TCU due to wound on stump; can't wear prosthetic until healed. UTI on Cephelaxin 500 mg TID. Katharine TCU Unit Phone [facility] station [phone] Phone BOGDAN Baker [phone] Discussed Prograf dose was 1.5 mg at hospital. Should be 1 mg AM/0.5 mg PM. Repeat level with [facility] 09/24/21. Verbal orders taken by admissions. Barbie Crisostomo, RN, BSN Solid Organ Transplant, Post Kidney and Pancreas Transplant Loss Prevention Analyst [phone] AL CLERK Telephone Encounter - MichaelAzael Deann - 09/22/2021 12:09 PM CST Katharine under the new name [facility] TCU has questions regarding medicationsand lab. AL CLERK documented in this encounter Plan of Treatment Not on filedocumented as of this encounter Visit Diagnoses Not on filedocumented in this encounter Care Teams Slime Plant Operator Helper Relationship Specialty Start Date End Date Momo Forbes PCP - General Family Practice 01/02/14 [facility] [address] [place] [address] Joseph Quintana, Assigned Nephrology 03/29/21 MD Provider [address] [place] [address] [address] [place] [address] documented as of this encounter
--- OUTSIDE RECORDS SUMMARY | 2022-06-30 10:52 | XMS_ITS | Encounter Summary ---
:1950 Author Organization [place] Address [address] [place] [address] Care Team Providers Name Role Phone Momo Forbes Primary Care Provider Joseph Quintana MD Unavailable Encounter Details Date Type Department Care Team Description 01/19/2022 External Order [facility] Outside, Provide r Results Molecular Diagnostic s [address] [place] [address] Social History Tobacco Use Types Packs/Day Years [...] External Culture Results (01/19/2022 12:11 PM CDT) [facility] Method Time Signature Scan Culture See Scanned NON-INTERFACE Results Report D (ONBASE (External) SCANS) Specimen (Source) Anatomical Collection Method Collection Time Re ceived Time Location / / Volume Laterality 01/19/2022 12:11 PM CDT Narrative [facility] - 01/25/2022 2:48 PM CDT Verified by Priscilla Mcdaniel on 01/25/2022. Provider Outside LABORATORY Performing Organization Address City/[facility]/ZIP Code Phon e Number [facility] [...] LAB - URINE ORDERABLES Performing Organization Address City/[facility] Phon e Number [facility] NON-INTERFACED [...] UA with Microscopic (01/19/2022 11:16 AM CDT) [facility] gist Method Time Signature Color Urine YEL YELLOW NON-INTERFAC (External) ED (ONBASE SCANS) Appearance Urine CLEAR CLEAR NON-INTERFAC (External) ED (ONBASE SCANS) Glucose Urine 2+ NEGATIVE NON-INTERFAC (External) ED (ONBASE SCANS) Bilirubin Urine NEG NEGATIVE NON-INTERFAC (External) ED (ONBASE SCANS) Ketones Urine NEG NEGATIVE NON-INTERFAC (External) ED (ONBASE SCANS) Specific [place] 1.010 1.005 - NON-INTERFAC Urine (External) 1.030 [...] filedocumented in this encounter Care Teams Survey Engineer Relationship Specialty Start Date End Date Momo Forbes PCP - General Family Practice 01/02/14 [facility] [address] [place] [address] Joseph Quintana, Assigned Nephrology 03/29/[address] [place] [address] [address] [place], [place] [id number] documented as of this encounter
--- OUTSIDE RECORDS SUMMARY | 2022-06-30 10:52 | XMS_ITS | Encounter Summary ---
:1950 Author Organization [place] Address [address] [place] [address] Care Team Providers Name Role Phone Momo Forbes Primary Care Provider Mariano, Joseph Durham MD Unavailable Reason for Visit Reason Onset Date Comments Transplant Lab 12/10/2021 Encounter Details Date Type Department Care Team Description 12/10/2021 Telephone [facility] Transplant Mati Recinos RN Transplant Lab Clinic [address] [place] [address] [phone] Social History Tobacco Use Types Packs/Day [...] on filedocumented in this encounter Care Teams Chili Powder Mixer Relationship Specialty Start Date End Date Momo Forbes PCP - General Family Practice 01/02/14 [facility] [address] [place] [address] Joseph Quintana, Assigned Nephrology 03/29/21 MD Provider [address] [place] [address] [address] [place], [place] [id number] documented as of this encounter
--- OUTSIDE RECORDS SUMMARY | 2022-06-30 10:52 | XMS_ITS | Encounter Summary ---
:1950 Author Organization [place] Address [facility] [place] [address] Care Team Providers Name Role Phone Momo Forbes Primary Care Provider Joseph Quintana MD Unavailable Reason for Visit Reason Onset Date Comments Transplant 06/07/2022 Covid reassessment Encounter Details Date Type Department Care Team Description 06/07/2022 Telephone [facility] Gretta Peacock RN [facility] [address] [place] [phone] Social History Tobacco Use Types Packs/Day [...] that. Mycophenolate was held while inpatient at [facility]. Patient was discharged yesterday, Patient resumed his usual dose of MMF 750 mg bid. Current symptoms: cough, denies SOB. States he is feeling well. Will update transplant nephrology. Gretta Peacock RN Adjunct Lecturer [phone] ADDENDUM: Satish Gómez MD Sveiven, Sara, RN I would actually have him take MMF 500mg bid and if feeling ok in 1 week increase to 750mg bid Patient v/u of taking MMF 500 mg bid for one week. Will reassess symptoms in one week. Gretta Peacock printing pressmanAdjunct Lecturer [phone] documented in this encounter Plan of Treatment Not on filedocumented as of this encounter Visit Diagnoses Not on filedocumented in this encounter Care Teams Internal Medicine Nurse Practitioner Relationship Specialty Start Date End Date Momo Forbes PCP - General Family Practice 01/02/14 [facility] [address] [place] [address] Joseph Quintana, Assigned Nephrology 03/29/21 Provider [address] [place], [place] [address] documented as of this encounter
--- OUTSIDE RECORDS SUMMARY | 2022-06-30 10:52 | XMS_ITS | Encounter Summary ---
:1950 Author Organization [place] Address [address] [place] [address] Care Team Providers Name Role Phone Momo Forbes Primary Care Provider Joseph Quintana MD Unavailable Reason for Visit Reason Onset Date Comments Call Back 06/18/2022 Medications Encounter Details Date Type Department Care Team Description 06/18/2022 Telephone [facility] Satish Gómez MD Call Back (Medications) Nephrology Clinic [address] [place] [phone] Social History Tobacco Use Types Packs/Day Years [...] 06/21/2022 2:28 PM CDT General Route to TRAILER STEERER Reason for call: [place] was returning a missed call Call back needed? Yes Return Call Needed Same as documented in contacts section When to return call?: Same day: Route High Priority Telephone Encounter - Luann Lagunas - 06/18/2022 12:12 PM CDT M [facility] Call Center Phone Message May a [...] Please have Dr. Gómez reach out to [facility] [phone] - [facility]. Thanks Action Taken: Message routed to: [facility] Neph Travel Screening: Not Applicable documented in this encounter Plan of Treatment Not on filedocumented as of this encounter Visit Diagnoses Not on filedocumented in this encounter Care Teams Fruit Loader Relationship Specialty Start Date End Date Momo Forbes PCP - General Family Practice 01/02/14 [facility] [address] [place] [address] Joseph Quintana, Assigned Nephrology 03/29/21 MD Provider 717 [facility] 353 [facility] 1932 [place], [place] [address] documented as of this encounter
--- OUTSIDE RECORDS SUMMARY | 2022-06-30 10:52 | XMS_ITS | Encounter Summary ---
:1950 Author Organization [place] Address [address] [place] [address] Care Team Providers Name Role Phone Momo Forbes Primary Care Provider Joseph Quintana MD Unavailable Reason for Visit Reason Onset Date Comments Transplant 06/17/2022 Covid reassessment Encounter Details Date Type Department Care Team Description 06/17/2022 Telephone [facility] Gretta Peacock RN [facility] [address] [place] [phone] Social History Tobacco Use Types Packs/Day [...] Covid + 06/01/2022 with inpatient stay at [facility] where MMF was held. Resumed [...] 750mg bid OUTCOME: Patient was readmitted to [facility] with complications of Covid 19 per patient. Difficult to hear patient as he has bad cell phone service at hospital. Spoke with staff member on inpatient unit. Patient is private information unable to be given to RNCC. Provided provider to providernumber to staff member to pass along to RN or inpatient provider. V/U of calling [facility] transplant nephrology to discuss IS. Gretta Peacock cotton roll packerFancy Wire Drawer [phone] documented in this encounter Plan of Treatment Not on filedocumented as of this encounter Visit Diagnoses Not on filedocumented in this encounter Care Teams Call Or Contact Centre Operator Relationship Specialty Start Date End Date Momo Forbes PCP - General Family Practice 01/02/14 [facility] [address] [place] [address] Joseph Quintana, Assigned Nephrology 03/29/21 MD Provider [address] [place] [address] [address] [place] [address] documented as of this encounter
--- OUTSIDE RECORDS SUMMARY | 2022-06-30 10:52 | XMS_ITS | Encounter Summary ---
:1950 Author Organization [place] Address [address] [place] [address] Care Team Providers Name Role Phone Momo Forbes Primary Care Provider Joseph Quintana MD Unavailable Encounter Details Date Type Department Care Team Description 04/29/2022 External Order [facility] Outside, Provide r Results Molecular Diagnostic s [address] [place] [phone] Social History Tobacco Use Types Packs/Day Years [...] LAB - URINE ORDERABLES Performing Organization Address City/[facility] Code Phon e Number [facility] [...] on filedocumented in this encounter Care Teams Role Player Relationship Specialty Start Date End Date Momo Forbes PCP - General Family Practice 01/02/14 [facility] [address] [place] [address] Joseph Quintana, Assigned Nephrology 03/29/21 Provider 717 [facility] 353 [facility] [address] [place] [address] documented as of this encounter
--- OUTSIDE RECORDS SUMMARY | 2022-06-30 10:52 | XMS_ITS | Encounter Summary ---
:1950 Author Organization [place] Address [address] [place] [address] Care Team Providers Name Role Phone Momo Forbes Primary Care Provider Mariano, Joseph Durham MD Unavailable Reason for Visit Reason Onset Date Comments Transplant 12/02/2021 Encounter Details Date Type Department Care Team Description 12/02/2021 Telephone [facility] Transplant Obdulia Peacock, director of it operations Clinic [address] [place] [address] [phone] Social History Tobacco Use Types Packs/Day [...] confirm he received message. Gretta Peacock RN Tank Builder [phone] ADDENDUM: left message for patient stating he has active orders at preferred lab. Asked to please obtain a full set of transplant labs as soon as possible. Gretta Peacock director of it operationsTank Builder [phone] documented in this encounter Plan of Treatment Not on filedocumented as of this encounter Visit Diagnoses Not on filedocumented in this encounter Care Teams Technical Publications Manager Relationship Specialty Start Date End Date oMmo Forbes PCP - General Family Practice 01/02/14 [facility] [address] [place] [address] Joseph Quintana, Assigned Nephrology 03/29/[address] [place] [address] [address] [place] [address] documented as of this encounter
--- OUTSIDE RECORDS SUMMARY | 2022-06-30 10:52 | XMS_ITS | Encounter Summary ---
:1950 Author Organization [place] Address [facility] [place] [address] Care Team Providers Name Role Phone Momo Forbes Primary Care Provider Mariano, Joseph Durham MD Unavailable Reason for Visit Reason Onset Date Comments Voicemail 04/13/2022 Encounter Details Date Type Department Care Team Description 04/13/2022 Telephone [facility] Transplant Obdulia Peacock, RN Voicemail Clinic [address] [place] [address] [phone] Social History Tobacco Use Types Packs/Day [...] to patient via mail Gretta Peacock RN Wealth Management Director [phone] Telephone Encounter - Adriana Raza - 04/13/2022 2:31 PM CDT Voicemail Date/Time: 04/13/22 2:27 pm Reason for call: Diego received a letter stating we have been trying ot reach him so he was responding documented in this encounter Plan of Treatment Not on filedocumented as of this encounter Visit Diagnoses Not on filedocumented in this encounter Care Teams Epoxy Specialist Relationship Specialty Start Date End Date Momo Forbes PCP - General Family Practice 01/02/14 [facility] [address] [place] [address] Joseph Quintana, Assigned Nephrology 03/29/21 MD Provider 7 [facility] 353 [facility] [address] [place] [address] documented as of this encounter
--- OUTSIDE RECORDS SUMMARY | 2022-06-30 10:52 | XMS_ITS | Encounter Summary ---
:1950 Author Organization [place] Address [address] [place] [address] Care Team Providers Name Role Phone Momo Forbes Primary Care Provider Mariano, Joseph Durham MD Unavailable Reason for Visit Reason Onset Date Comments Transplant 11/24/2021 Encounter Details Date Type Department Care Team Description 11/24/2021 Telephone [facility] Transplant Obdulia Peacock, performance reporter Clinic [address] [place] [phone] Social History Tobacco Use Types Packs/Day [...] had labs drawn ~one week ago at [facility], however results have not beenfaxed to [facility]. PLAN: call lab to have results faxed OUTCOME: New labs orders sent. Most recent bmp and cbc requested from october 2021. Tac and UPC due. Left detailed message with instructions to obtain tacrolimus trough level and UPC at earliest convenience. Asked for CB to confirm understanding. Gretta Peacock performance reporterSenior Software Systems Engineer [phone] Telephone Encounter - Azael Rodriguez - 11/24/2021 3:32 PM CDT Patient called to touch base with the RNCC regarding some questions. documented in this encounter Plan of Treatment Not on filedocumented as of this encounter Visit Diagnoses Not on filedocumented in this encounter Care Teams Combination Window Installer Relationship Specialty Start Date End Date Momo Forbes PCP - General Family Practice 01/02/14 [facility] [address] [place] [address] Joseph Quintana, Assigned Nephrology 03/29/21 MD Provider [address] [place] [address] [address] [place] [address] documented as of this encounter
--- OUTSIDE RECORDS SUMMARY | 2022-06-30 10:52 | XMS_ITS | Clinical Summary ---
:1950 Author Organization [facility] [place] [address] Care Team Providers Name Role Phone Momo Forbes MD Primary Care Provider [phone] Allergies No known active allergies Medications [...] Okay to use Medela Wound Vac at Nursing Home Facility Right foot wound debridement with application of integra bilayer matrix and wound vac, 10.0 cm x 5.0 cm x 0.6 cm. M- W-F dressing changes gabapentin Take 1 capsule 21 capsule 0 09/26/19 Act jo (NEURONTIN) 300 mg by mouth 3 times 21 capsuleIndications: daily. neuropathic pain Indications: neuropathic pain durable medical Custom NIKOLSKI boot 1 Each 0 11/27/19 Active equipment [...] Date of : 1950 Age: 72 y.o. [id number] Primary Physician: Momo Forbes MD Admission Date: 06/15/2022 Discharge Date: 06/20/2022 He will be discharged from [facility] to home. 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 albuterol HFA 90 mcg/actu ation inhaler [...] and I nstructions AMB CONSULT TO HOME retirement Health Certification/F dharmesh to Face Attestation: I certify that this patient is confined to his/her home and needs intermittent usp care, physical therapy and/or speech therapy or continues to need occupational therapy. A plan of care has been established and will be reviewed periodically by a physician or allowed practitioner. Services will be furnished while the patient is under the care of a physician or allowed practitioner. The beni ent had a gbyr-lz-liiz encou nter with a physician or an [...] follow up with the [facility] in [place] on June 22 at 10:50 with Alexandria Banuelos. Meals on Wheels [place] You have been referred to [facility] with [facility] ( ) . Please [...] scarlett w up appointment(s) Momo Forbes MD [facility] follow up May resume ARB med [...] medical emergency. Why [facility] you [facility] the [facility]? 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 HOSPITALIST DISCHARGE SUMMAR Y ? ? [facility] Admission Date: 06/01/2022 Discharge Date: 06/05/2022 Discharge Plan: Diego Bryson agee was discharged to home. Principal Diagnosis Pneumonia due to COVID-19 vi [facility] Hospital Problem List Principal Problem: Pneumonia due [...] post renal transplant in 2013 at the [facility] on CellCept and Prograf who presents with [...] transplant team because he is inpatient per [facility]'s policy given the EUA stipulations. 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 cefuroxime axetil 500 mg tablet ?? dexAMETHasone 6 mg tablet Pertinent Findings / Procedu res First weight: (!) 148.5 kg ( 327 lb 6.4 oz) (Weighed with prostetic leg on - prostetic leg adds 20 lbs) (06/01/22 5745) Last weight: (!) 148.4 kg (327 lb 3.2 oz) (06/02/22 5426) EXAM: Diego is alert, no acu te [...] 4.3 4.7 CHLORIDE -- 110 112 H TC0ONALX -- BUN -- 42 H 36 H [...] Component Value U nits Date/Time URINE CULTURE [[id number]] (Abnormal) (Susceptibility) Collected: 06/02/2244 Lab Status: Final [...] or P.mirablis. Linear View INFLUENZA A/B/H1N1 PCR [[id number]] (Normal) Collected: 06/02/2238 Lab Status: Final result Sp ecimen: Other from Nasopharyngeal Updated: 06/02/22122 INFLUENZA A PCR NOT Detecte d INFLUENZA B PCR NOT Detecte d COVID 19 [[id number]] (Abno rmal) Collected: 06/02/2238 Lab Status: Final [...] terminated or revoked sooner. BLOOD CULTURE X2 [[id number]] (Normal) Collected: 06/02/2224 Lab Status: Preliminary res ult Specimen: Blood Updated: 06/02/22506 CULTURE No growth to date. BLOOD CULTURE X2 [[id number]] (Normal) Collected: 06/02/2221 Lab Status: Preliminary [...] Duration 110 QT 362 QTc 415 R [place] 26 Consultants None Curbside with his transplant team at the [facility]. Diet / Activity / Follow-Up After Discharge Orders and I nstructions COVID-19 Discharge Informat ion: Discharge instructions for COVID test positive You were tested for COVID-19 and your test result was positive. Additional Information When it is safe to return to work, school, or daycare: If you or others in your [facility] are working, please reach out to your Employer for further direction on work policies. For children who attend scho ol or day care, refer your child's school or day care policy for when its safe to return, You can also refer to the [facility] guidelines. Go to: https://www.[facility]./di ranulfoes/coronavirus/schools/exguide.pdf Call 911 if you have a [...] Centers for Disease Control (CDC) - https://www.cdc.gov/coronavirus/2019-nCoV/index.html formerly [facility] ([facility]) - https://www.[facility]./diseases/coronavirus/index.html For children who attend scho ol or day care, refer to the following [facility] guidelines: Go to: https://www.[facility]./diseases/coronavirus/schools/exguide.pdf [facility]'s website www.[facility].[place] and Positioning and Breathing Exercises Positioning: Changing [...] or crutches as directed. Carry a phone (twago - teamwork across global offices or [employer]) with you at all times in case [...] medical emergency. Why [facility]? The [facility](s[facility]/are COVID pneumonia and a bladder [...] and examined today. Víctor Schuler DO Hospitalist, [facility] ? ? [phone] Cc: [facility] Renal Transplant Team 06/01/2022 Travel 04/08/2022 Lab [...] Visit Angie Chatterjee, DAMIAN [address] [place] [address] (Wo rk) Health Maintenance Due Date Last [...] Christoph 140/90 Medical Devices Implanted Type Area Foundry Operator Device Shelf Model / Identifier Expiration Date Ser ial / Lot Drsg Wound 4x5in Matrix Bilayer Right: 08/21/2020 [id number] / Implanted: Qty: 1 on 09/23/2020 by Araceli Fowler DPM at [facility] / [id number] Description: DRSG WOUND 4X5IN MATRIX JYOTI HBAVIK Procedures Procedure Name Priority Date/Time Associated Comments [...] AM CDT 11:14 AM CDT Arnoldo Gregory [facility] CHEMISTRY Performing Organization Address City/State/ZIP Code Phon e Number [facility] [address] [address] (ABNORMAL) CBC WITH AUTO DIFFERENTIAL (06/20/2022 5:44 AM CDT)Only the most recent of11 resultswithin the time period is included. [facility] Method Time Signature WHITE BLOOD 6.4 4.5 [...] AM CDT AM CDT Mistid Drea Betzyrianna [facility] HEMATOLOGY Performing Organization Address City/State/ZIP Code Phon e Number [facility] [address] [address] (ABNORMAL) PROTIME-INR (06/20/2022 5:44 AM CDT)Only the most recent of5 results within the time period is included. P athologist Signature INR 1.8 (H) <1.3 06/20/2022 [place] 6:22 AM [facility] HOSPITAL PROTIME 20.1 (H) 12.0 - 13.8 06/20/2022 [place] sec 6:22 AM T [facility] Specimen Anatomical Collection Method / Collection Time Recei laura Time (Source) Location / Volume Laterality Blood BLOOD SPECIMEN / Venipuncture / 06/20/2022 5:44 2021 6:12 Unknown Unknown AM CDT AM CDT [facility] - 06/20/2022 6:22 AM C DT ?Therapeutic [...] the patient is on UFH. Arnoldo Gregory [facility] HEMATOLOGY Performing Organization Address City/State/ZIP Code Phon e Number [facility] [address] [address] (ABNORMAL) BASIC METABOLIC PANEL (06/20/2022 5:44 AM T)Only the most recent of 6 resultswithin the time period is included. [facility] Signature SODIUM 138 135 - 145 06/20/2022 [place] mmol/L 6:35 AM [facility] HOSPITAL POTASSIUM 4.3 3.5 - 5.0 06/20/2022 [place] mmol/L 6:35 AM [facility] HOSPITAL CHLORIDE 113 (H) 98 - 110 06/20/2022 [place] mmol/L 6:35 AM [facility] HOSPITAL CO2,TOTAL 21 21 - 31 06/20/2022 [place] mmol/L 6:35 AM [facility] HOSPITAL ANION GAP 4 (L) 5 - 18 06/20/2022 [place] 6:35 AM [facility] HOSPITAL GLUCOSE 163 (H) 65 - 100 06/20/2022 [place] mg/dL 6:35 AM [facility] HOSPITAL CALCIUM 8.9 8.5 - 10.5 06/20/2022 [place] mg/dL 6:35 AM [facility]PITAL BUN 51 (H) 8 - 25 06/20/2022 [place] mg/dL 6:35 AM [facility] HOSPITAL CREATININE 2.01 (H) 0.72 - 06/20/2022 [place] 1.25 mg/dL 6:35 AM [facility] H[facility]PITAL BUN/CREAT RATIO 25 (H) 10 - 20 06/20/2022 [place] 6:35 AM [facility] HOSPITAL eGFR 35 (L) >90 06/20/2022 [place] mL/min/1.7 6:35 AM [facility] HOSPITAL 3m2 Comment: As of 2021, eGFR [...] 6:12 Unknown Unknown AM CDT AM CDT [facility] CHEMISTRY Performing Organization Address [facility] e [facility] [address] [address] (ABNORMAL) RED CELL MORPHOLOGY (06/19/2022 5:52 AM CDT)Only the most recent of7 resultswithin the time period is included. [facility] PowerMessage Method Time Signature ELLIPTOCYTES Few 06/19/2022 [place] 7:57 AM CDT HOSPITAL RBC COMMENT Present (A) RBC morphology 06/19/2022 [place] appears 7:57 AM CDT HOSPITAL normal, RBC morphology within normal limits for newborns. Specimen Anatomical Collection Method / Collection Time Recei laura Time (Source) Location / Volume Laterality Blood BLOOD SPECIMEN / Venipuncture / 06/19/2022 5:52 2021 6:44 Unknown Unknown AM CDT AM CDT [facility] HEMATOLOGY Performing Organization Address [facility] [address] [address] (ABNORMAL) PLATELET ESTIMATE (06/19/2022 5:52 AM CDT)Only the most recent of7 resultswithin the time period is included. [facility] PowerMessage Method Time Signature PLATELET Decreased (A) Adequate, No 06/19/2022 [place] ESTIMATE estimate 7:57 AM CDT HOSPITAL Specimen Anatomical Collection Method / Collection Time Recei laura Time (Source) Location / Volume Laterality Blood BLOOD SPECIMEN / Venipuncture / 06/19/2022 5:52 2021 6:44 Unknown Unknown AM CDT AM CDT [facility] HEMATOLOGY Performing Organization Address [facility] e [facility] [address] [address] PROCALCITONIN (06/19/2022 5:52 AM CDT)Only the most recent of2 resultswithin the time period is included. P athologist Signature PROCALCITONIN 0.05 <0.50 ng/ml 06/19/2022 [place] 9:45 AM CDT HOSPITAL Specimen Anatomical Collection Method / Collection Time Recei laura Time (Source) Location / Volume Laterality Blood BLOOD SPECIMEN / Venipuncture / 06/19/2022 5:52 2021 6:44 Unknown Unknown AM CDT AM CDT Narrative [facility] - 06/19/2022 9:45 AM C DT [...] concentrations <2.0 ng/mL are obtained. Arnoldo Gregory [facility] SEND OUTS Performing Organization Address City/State/ZIP Code Phon e Number [facility] [address] [address] XR CHEST 1 VIEW PORTABLE (06/18/2022 9:15 AM CDT)Only the most recent of4 resultswithin the time period is included. Anatomical Region Laterality Modality HEART, THORAX, CHEST Digital Radiography Specimen (Source) Anatomical Location Collection Method / Collectio n Time Received Time / Laterality Volume Narrative This result has an attachment that is no t available. Mistitimmy Drea Gregory [facility] GENERAL IMAGING MAGNESIUM (06/17/2022 6:25 AM [...] Code Phon e Number [facility] [address] [place] [address] (ABNORMAL) COMP METABOLIC PANEL (06/17/2022 6:25 AM CDT)Only the most recent of5 resultswithin the time period is included. [facility] gist Method Time Signature SODIUM 137 135 [...] - 10.5 06/17/2022 [place] mg/dL 7:01 AM [facility] HOSPITAL BUN 53 (H) 8 - 25 06/17/2022 [place] mg/dL 7:01 AM [facility] HOSPITAL CREATININE 2.01 (H) 0.72 - 06/17/2022 [place] 1.25 mg/dL 7:01 AM [facility] BUN/CREAT RATIO 26 (H) 10 - 20 06/17/2022 [place] 7:01 AM [facility] ALBUMIN 2.6 (L) 3.2 - 4.6 06/17/2022 [place] g/dL 7:01 AM [facility] PROTEIN,TOTAL 5.3 (L) 6.0 - 8.0 06/17/2022 [place] g/dL 7:01 AM [facility] GLOBULIN 2.7 2.0 - 3.7 06/17/2022 [place] g/dL 7:01 AM [facility] HOSPITAL A/G RATIO 1.0 1.0 - 2.0 06/17/2022 [place] 7:01 AM [facility] BILIRUBIN,TOTAL 1.0 0.2 - 1.2 06/17/2022 [place] mg/dL 7:01 AM [facility] ALK PHOSPHATASE 81 50 - 136 06/17/2022 [place] IU/L 7:01 AM [facility] ALT (SGPT) 17 8 - 45 06/17/2022 [place] IU/L 7:01 AM [facility] AST (SGOT) 10 2 - 40 06/17/2022 [place] IU/L 7:01 AM [facility] eGFR 35 (L) >90 06/17/2022 [place] mL/min/1.7 7:01 AM [facility] 3m2 Comment: As of 2021, eGFR is [...] CDT Larry HERNANDEZ CHEMISTRY Performing Organization Address City/[facility] e Number [address] [address] ECHO COMPLETE WO CONTRAST (06/16/2022 4:09 PM [...] CDT Larry HERNANDEZ CHEMISTRY Performing Organization Address [facility] e Number [address] [address] (ABNORMAL) Serum Glucose (06/15/2022 11:59 PM CDT)Only [...] Kyle Fontenot DO CHEMISTRY Performing Organization Address City/[facility]/ZIP [facility] Phon e Number [address] [address] APTT (06/15/2022 11:59 PM CDT)Only the most recent of2 resultswithin the time period is included. athologist Signature APTT 26 24 - 33 sec 06/16/2022 [place] 12:21 AM CDT HOSPITAL Specimen Anatomical Collection Method / Collection Time Recei laura Time (Source) Location / Volume Laterality Blood BLOOD SPECIMEN / Venipuncture / 06/15/2022 11:59 06/16 Unknown Unknown PM CDT 12:10 AM CDT Narrative [facility] - 06/16/2022 12:21 AM CDT Therapeutic Range: 70-95 seconds Larry HERNANDEZ HEMATOLOGY Performing Organization Address City/[facility]/ZIP [facility] [address] [address] (ABNORMAL) OCCULT BLOOD IFOBT STOOL (06/15/2022 9:14 PM CDT) [facility] gist Method Time Signature STOOL BLOOD Positive (A) Negative 06/15/2022 [place] ,IFOBT 9:24 PM CDT HOSPITAL Specimen Anatomical Collection Method Collection Time Receive d Time (Source) Location / / Volume Laterality Stool STOOL SPECIMEN / Non-Blood / 06/15/2022 9:14 PM 06/15 9:19 Unknown Unknown CDT PM CDT Kyle Fontenot DO LABORATORY Performing Organization Address City/[facility] e [address] [address] (ABNORMAL) PLATELET COUNT (06/15/2022 4:58 PM CDT) athologist Signature PLATELET COUNT 77 (L) 140 - 440 06/15/2022 [place] thou/cu mm 5:28 PM CDT HOSPITAL MPV 06/15/2022 [place] 5:28 PM CDT HOSPITAL Comment: Unable to be determined Specimen Anatomical Collection Method / Collection Time Recei laura Time (Source) Location / Volume Laterality Blood BLOOD SPECIMEN / Venipuncture / 06/15/2022 4:58 2021 5:03 Unknown Unknown PM CDT PM CDT Narrative [facility] - 06/15/2022 5:28 PM C DT Obtain before initiating IV heparin therapy if not done within previous 24 hours. Obtain before initiating IV heparin ther apy if not done within previous 24 hours. Obtain before initiating IV heparin ther apy if not done within previous 24 hours. Larry GARCÍA HEMATOLOGY Performing Organization Address [facility]/[address] [address] (ABNORMAL) HEMOGLOBIN (06/15/2022 4:58 PM CDT)Only the most recent of2 results within the time period is included. athologist Signature HEMOGLOBIN 12.5 (L) 13.5 - 06/15/2022 [place] 17.5 g/dL 5:08 PM CDT HOSPITAL MCV 83 80 - 100 06/15/2022 [place] fL 5:08 PM CDT HOSPITAL Specimen Anatomical Collection Method / Collection Time Recei laura Time (Source) Location / Volume Laterality Blood BLOOD SPECIMEN / Venipuncture / 06/15/2022 4:58 2021 5:03 Unknown Unknown PM CDT PM CDT [facility] - 06/15/2022 5:08 PM C DT Obtain before initiating IV heparin therapy if not done within previous 24 hours. Obtain before initiating IV heparin ther apy if not done within previous 24 hours. Obtain before initiating IV heparin ther apy if not done within previous 24 hours. Larry GARCAÍ HEMATOLOGY Performing Organization Address [facility]/[address] [address] HEMATOCRIT (06/15/2022 4:58 PM CDT) athologist Signature HEMATOCRIT 38.8 37.0 - 53.0 06/15/2022 [place] % 5:10 PM CDT HOSPITAL Specimen Anatomical Collection Method / Collection Time Recei laura Time (Source) Location / Volume Laterality Blood BLOOD SPECIMEN / Venipuncture / 06/15/2022 4:58 2021 5:03 Unknown Unknown PM CDT PM CDT [facility] - 06/15/2022 5:10 PM C DT Obtain before initiating IV heparin therapy if not done within previous 24 hours. Obtain before initiating IV heparin ther apy if not done within previous 24 hours. Obtain before initiating IV heparin ther apy if not done within previous 24 hours. Larry HERNANDEZ HEMATOLOGY Performing Organization Address [facility]/[address] [address] (ABNORMAL) BUN (06/15/2022 4:58 PM CDT) athologist Signature BUN 65 (H) 8 - 25 06/15/2022 [place] mg/dL 5:24 PM CDT HOSPITAL Specimen Anatomical Collection Method / Collection Time Recei laura Time (Source) Location / Volume Laterality Blood BLOOD SPECIMEN / Venipuncture / 06/15/2022 4:58 2021 5:03 Unknown Unknown PM CDT PM CDT Larry HERNANDEZ CHEMISTRY Performing Organization Address [facility]/[address] [address] (ABNORMAL) CREATININE (06/15/2022 4:58 PM CDT)Only the [...] CDT Larry HERNANDEZ CHEMISTRY Performing Organization Address City/[facility] Phon e Number [facility] [address] [address] US VENOUS LOWER EXTREMITY BILATERAL (06/15/2022 4:05 [...] of3 resultswithin the time period is included. [facility] Method Time Signature D-DIMER,QUANT 1.65 See Comment 06/15/2022 [place] ITATIVE / FEU 3:25 PM CDT HOSPITAL mcg/mL D-DIMER Abnormal (A) 06/15/2022 [place] INTERP 3:25 PM CDT HOSPITAL Specimen Anatomical Collection Method / Collection Time Recei laura Time (Source) Location / Volume Laterality Blood BLOOD SPECIMEN / Venipuncture / 06/15/2022 3:01 2021 3:09 Unknown Unknown PM CDT PM CDT Narrative [facility] - 06/15/2022 3:25 PM C DT [...] range Larry HERNANDEZ HEMATOLOGY Performing Organization Address City/[facility]/ZIP Code Phon e Number [facility] [address] [address] (ABNORMAL) IRON PLUS IRON BINDING CAP (06/15/2022 5:46 AM CDT) Analysis Performed At Patho logist Time Signature IRON 23 (L) 31 - 144 06/17/2022 [facility] ug/dL 7:13 PM CDT LABORATORY-JACKY TRAL LABORATORY UIBC 154 06/17/2022 [facility] (UNSATURATED) 7:13 PM CDT LABORATORY-JACKY TRAL LABORATORY IRON BINDING 177 (L) 245 - 400 06/17/2022 [facility] CAPACITY ug/dL 7:13 PM CDT LABORATORY-JACKY TRAL LABORATORY IRON,% 13 (L) 20 - 55 % 06/17/2022 [facility] SATURATION 7:13 PM CDT LABORATORY-JACKY TRAL LABORATORY Specimen Anatomical Collection Method / Collection Time Recei laura Time (Source) Location / Volume Laterality Blood BLOOD SPECIMEN / Venipuncture / 06/15/2022 5:46 2021 6:01 Unknown Unknown AM CDT AM CDT Kyle Fontenot DO CHEMISTRY Performing Organization Address City/[facility] Phon e Number [facility] [address] [place] [address] [place] [address] LABORATORY-CENTRAL 2000 LABORATORY (ABNORMAL) PTH,INTACT (06/15/2022 5:46 AM CDT) P athologist Signature PTH,INTACT 489.0 (H) 14.5 - [facility]/16/2022 [facility] pg/mL 3:01 PM CDT LABORATORY-JACKY TRAL LABORATORY CALCIUM 8.6 8.5 - 10.5 06/16/2022 [facility] mg/dL 3:01 PM CDT LABORATORY-JACKY TRAL LABORATORY Specimen Anatomical Collection Method / Collection Time Recei laura Time (Source) Location / Volume Laterality Blood BLOOD SPECIMEN / Venipuncture / 06/15/2022 5:46 2021 6:01 Unknown Unknown AM CDT AM CDT Kyle Fontenot DO SEND OUTS Performing Organization Address City/[facility] Phon e Number [facility] [address] [place] [address] [place] [address] LABORATORY-CENTRAL 2000 LABORATORY (ABNORMAL) FERRITIN (06/15/2022 5:46 AM CDT)Only the most recent of2 results within the time period is included. P athologist Signature FERRITIN 547.6 (H) 22.0 - 06/17/2022 [facility] 275.0 7:22 PM CDT LABORATORY-CENT ng/mL RAL LABORATORY Specimen Anatomical Collection Method / Collection Time Recei laura Time (Source) Location / Volume Laterality Blood BLOOD SPECIMEN / Venipuncture / 06/15/2022 5:46 2021 6:01 Unknown Unknown AM CDT AM CDT Kyle Fontenot DO CHEMISTRY Performing Organization Address City/State/ZIP Code Phon [facility] Number [facility] [address] [place] [address] LABORATORY-CENTRAL 2000 LABORATORY WHITE BLOOD COUNT (06/15/2022 1:45 AM CDT) P athologist Signature WHITE BLOOD 9.3 4.5 - 11.0 06/15/2022 [place] COUNT thou/cu mm 1:53 AM CDT HOSPITAL Specimen Anatomical Collection Method Collection Time Receive d Time (Source) Location / / Volume Laterality Blood BLOOD SPECIMEN / [facility] / 06/15/2022 1:45 AM 06/15 1:49 Unknown Unknown CDT AM CDT Narrative [facility] - 06/15/2022 1:53 AM C DT WBC MUST ALSO BE ORDERED, [id number] Kyle Cummings [facility] HEMATOLOGY Performing Organization Address City/[facility]/ZIP Code Phon e Number [facility] [address] [address] (ABNORMAL) DIFFERENTIAL (06/15/2022 1:45 AM CDT) Analysis [...] 06/15 1:49 Unknown Unknown CDT AM CDT [facility] - 06/15/2022 1:52 AM C DT WBC MUST ALSO BE ORDERED, [id number] Kyle Fontenot DO HEMATOLOGY Performing Organization Address City/[facility]/ZIP Code Phon e Number [facility] [address] [phone] (ABNORMAL) Hemoglobin A1C (06/15/2022 1:45 AM CDT)Only the most recent of2 resultswithin the time period is included. Analysis Performed At Patho logist Time Signature HEMOGLOBIN A1C 8.8 (H) <=6.4 % 06/16/2022 [facility] 8:31 PM CDT HOSPITAL (POCT) LABORATORY Specimen Anatomical Collection Method Collection Time Receive d Time (Source) Location / / Volume Laterality Blood BLOOD SPECIMEN / Add On / Unknown 06/15/2022 1:45 AM 1 Unknown CDT 10:06 AM CDT [facility] LABORATORY - 06/16/2022 8:31 PM CDT ? [...] Address City/State/ZIP Code Phon e Number [facility] LABORATORY SENDOUT [place]NAL [place] [phone] [facility] SCAN-CARDIAC STRIP (06/15/2022 12:00 AM CDT) [...] of2 resultswithin the time period is included. [facility] gist Method Time Signature RBC 3-5 (A) 0-2, None 06/14/2022 [place] Seen /HPF 11:14 PM [facility] LABORATORY WBC 6-10 (A) 0-2, 3-5, 06/14/2022 [place] None Seen 11:14 PM [facility] /HPF LABORATORY BACTERIA Few None 06/14/2022 [place] Seen, 11:14 PM [facility] Rare, Few LABORATORY Bacteria/ HPF EPITHELIAL Few None 06/14/2022 [place] CELLS Seen, Few 11:14 PM [facility] Epi/HPF LABORATORY Mucus Present 06/14/2022 [place] 11:14 PM [facility] LABORATORY WHITE CELL Present (A) (none) 06/14/2022 [place] CLUMPS 11:14 PM [facility] LABORATORY Specimen Anatomical Collection Method Collection Time Receive d Time (Source) Location / / Volume Laterality Urine URINE SPECIMEN / Non-Blood / 06/14/2022 10:59 022 Unknown Unknown PM CDT 11:01 PM CDT Rosenda Blancas MD URINE Performing Organization Address City/[facility]/ZIP Code Phon e Number [facility] LABORATORY [address] [place] [address] (ABNORMAL) UA W/ SEDIMENT EXAM REFLEXED PER CRITERIA (06/14/2022 10:59 PM CDT) Only the most recent of2 resultswithin the time period is included. [facility] Method Time Signature COLOR Yellow Yellow Color 06/14/2022 [place] 11:07 PM [facility] LABORATORY CLARITY Clear Clear 06/14/2022 [place] Clarity 11:07 PM [facility] LABORATORY SPECIFIC 1.025 1.010, 06/14/2022 [place] GRAVITY,URINE 1.015, 11:07 PM [facility] MEDICAL 1.020, 1.025 [facility] PH,URINE 6.0 6.0, 7.0, 06/14/2022 [place] 8.0, 5.5, 11:07 PM [facility] 6.5, 7.5, CENTER 8.5 LABORATORY UROBILINOGEN, Normal Normal EU/dl 06/14/2022 [place] QUALITATIVE 11:07 PM [facility] LABORATORY PROTEIN, 100 (A) Negative 06/14/2022 [place] URINE mg/dL 11:07 PM [facility] LABORATORY GLUCOSE, >=1000 (A) Negative 06/14/2022 [facility] mg/dL 11:07 [facility] LABORATORY KETONES,URINE Negative Negative 06/14/2022 [facility] mg/dL 11:07 [facility] LABORATORY BILIRUBIN,URI Negative Negative 06/14/2022 [facility] NE 11:07 PM [facility] LABORATORY OCCULT Small (A) Negative 06/14/2022 [place] BLOOD,URINE 11:07 PM [facility] LABORATORY NITRITE Negative Negative 06/14/2022 [facility] 11:07 PM [facility] LABORATORY LEUKOCYTE Negative Negative 06/14/2022 [place] ESTERASE 11:07 PM [facility] LABORATORY Specimen Anatomical Collection Method Collection Time Receive d Time (Source) Location / / Volume Laterality Urine URINE SPECIMEN / Non-Blood / 06/14/2022 10:59 022 Unknown Unknown PM CDT 11:01 PM CDT Rosenda Blancas MD URINE Performing Organization Address City/State/ZIP Code Phon e Number [facility]OR[facility]ORY [address] [place] [address] LACTATE VENOUS (06/14/2022 8:41 PM CDT)Only the most recent of4 resultswithin the time period is included. P athologist Signature LACTATE,VENOUS 1.7 0.5 - 2.0 06/14/2022 [place] mmol/L 8:59 PM CDT [facility] LAB[facility] Specimen Anatomical Collection Method / Collection Time Recei laura Time (Source) Location / Volume Laterality Blood BLOOD SPECIMEN / Venipuncture / 06/14/2022 8:41 2021 8:43 Unknown Unknown PM CDT PM CDT Rosenda Blancas MD CHEMISTRY Performing Organization Address City/State/ZIP Code Phon e Number [facility] [address] [place] [address] CT CHEST WO (06/14/2022 7:52 PM CDT) Anatomical Region Laterality Modality CHEST, THORAX, HEART Computed Tomography Specimen (Source) Anatomical Collection Method Collection Time Re ceived Time Location / / Volume Laterality 06/14/2022 8:25 PM CDT Narrative 06/14/2022 8:25 PM CDT For Patients: ??As a result of the Cures Act, medical imaging exams and procedure report s are released immediately into your [facility] medical record. ??You may view this report [...] provider. If you have questions, please contact [facility] care provider. Indication: Shortness of breath [...] s are released immediately into your [facility] record. ??You may view this report [...] note that all CT scans at this [facility] use dose modulation, iterative reconstruction, and/or [...] note that all CT scans at this [facility] use dose modulation, iterative reconstruction, and/or [...] report s are released immediately into your [facility] medical record. ??You may view this report [...] note that all CT scans at this [facility] use dose modulation, iterative reconstruction, and/or [...] provider. If you have questions, please contact [facility] care provider. Indication: Trauma Technique: Volumetric [...] note that all CT scans at this [facility] use dose modulation, iterative reconstruction, and/or [...] Rosenda Blancas MD MICROBIOLOGY Performing Organization Address City/[facility] Phon e [facility] LABORATORY [address] [place] [address] TROPONIN I (06/14/2022 6:35 PM CDT)Only the most recent of2 resultswithin the time period is included. athologist Signature TROPONIN I 0.019 <0.034 06/14/2022 [place] ng/mL 7:11 PM CDT [facility] LABORATORY Specimen Anatomical Collection Method / Collection Time Recei laura Time (Source) Location / Volume Laterality Blood BLOOD SPECIMEN / Venipuncture / 06/14/2022 6:35 2021 6:42 Unknown Unknown PM CDT PM CDT Rosenda Blancas MD CHEMISTRY Performing Organization Address [facility] Phon e [facility] LABORATORY [address] [place] [address] (ABNORMAL) BRAIN NATRIURETIC PEPTIDE (06/14/2022 6:35 PM CDT)Only the most recent of4 resultswithin the time period is included. athologist [facility] BRAIN FILIPPO 116 (H) <100 pg/mL 06/14/2022 [place] PEPTIDE 7:12 PM CDT [facility] LABORATORY Specimen Anatomical Collection Method / Collection Time Recei laura Time (Source) Location / Volume Laterality Blood BLOOD SPECIMEN / Venipuncture / 06/14/2022 6:35 2021 6:42 Unknown Unknown PM CDT PM CDT Rosenda Blancas MD CHEMISTRY Performing Organization Address City/[facility] Phon e Number [facility] [address] [place] [address] (ABNORMAL) COVID 19 (06/14/2022 6:34 PM CDT)Only the most recent of2 results within the time period is included. [facility] gist Method Time Signature COVID 19 Detected (A) Not detected 06/14/2022 [facility] 6:59 PM CDT [facility] LABORATORY Specimen Anatomical Location / Collection Method Collection Selvin e Received Time (Source) Laterality / Volume Other SPECIMEN FROM Non-Blood / 06/14/2022 6:34 06/14/2022 6:37 NASOPHARYNGEAL Unknown PM CDT PM CDT STRUCTURE / Unknown Narrative [facility] - 6:59 PM CDT This test [...] Rosenda Blancas MD MICROBIOLOGY Performing Organization Address [facility] e [facility] LABORATORY [address] [place] [address] COVID 19 COLLECTION (06/14/2022 6:34 PM CDT)Only the most recent of2 results within the time period is included. [facility] gist Method Time Signature TESTING [facility] 06/14/2022 [place] [facility] Laboratory 6:38 PM [facility] LABORATORY Comment: Specimen submitted to [facility] Laboratory for testing. Specimen Anatomical Location / Collection Method Collection Selvin e Received Time (Source) Laterality / Volume Other SPECIMEN FROM Non-Blood / 06/14/2022 6:34 06/14/2022 6:37 NASOPHARYNGEAL Unknown PM CDT PM CDT STRUCTURE / Unknown Rosenda Blancas MD SEND OUTS Performing Organization Address [facility] e [facility] LABORATORY [address] [place] [address] POTASSIUM (06/05/2022 5:47 AM CDT) athologist Signature POTASSIUM 4.0 3.5 - 5.0 06/05/2022 [place] mmol/L 6:36 AM [facility] LABORATORY Specimen Anatomical Collection Method / Collection Time Recei laura Time (Source) Location / Volume Laterality Blood BLOOD SPECIMEN / Venipuncture / 06/05/2022 5:47 2021 6:05 Unknown Unknown AM CDT AM CDT Víctor Schuler CHEMISTRY Performing Organization Address City/[facility]/ZIP Code Phon e Number [facility] [address] [place] [address] (ABNORMAL) BLOOD GAS,VENOUS (06/03/2022 5:47 AM CDT)Only the most recent of2 resultswithin the time period is included. [facility] Method Time Signature PH, VENOUS 7.32 7.32 - 7.43 06/03/2022 [place] 6:09 AM [facility] LABORATORY PCO2, VENOUS 41 41 - 51 06/03/2022 [facility] mmHg 6:09 AM [facility] LABORATORY PO2, VENOUS 45 (H) 35 - 40 06/03/2022 [place] mmHg 6:09 AM [facility] LABORATORY HCO3,VENOUS 21 (L) 22 - 29 06/03/2022 [place] mmol/L 6:09 AM [facility] LABORATORY BASE EXCESS, -4.8 (L) -2.0 - 3.0 06/03/2022 [place] VENOUS, POCT 6:09 AM [facility] LABORATORY O2 SATURATION, 83 (H) 70 - 75 % 06/03/2022 [facility] VENOUS 6:09 AM [facility] LABORATORY PATIENT 37.0 Degrees C 06/03/2022 [place] TEMPERATURE 6:09 AM [facility] LABORATORY Specimen Anatomical Collection Method / Collection Time Recei laura Time (Source) Location / Volume Laterality Blood VENOUS BLOOD Venipuncture / 06/03/2022 5:47 06/03/2022 6:02 SPECIMEN / Unknown Unknown AM CDT AM CDT Víctor Sara Schuler DO CHEMISTRY Performing Organization Address City/[facility]/ZIP Code Phon e Number [facility]ORATORY [address] [place] [address] US RENAL BILATERAL (06/02/2022 3:34 PM CDT) [...] s are released immediately into your [facility] record. ??You may view this report [...] provider. If you have questions, please contact [facility] care provider. INDICATION: Renal transplant. Urinary [...] (ABNORMAL) URINE CULTURE (06/02/2022 12:45 AM CDT) [facility] Method Time Signature CULTURE RESULT (A) 06/04/2022 [employer] 7:59 AM CDT LABORATORY-JACK[facility] TRAL LABORATORY CULTURE >100,000 CFU/mL 06/04/2022 [facility] [employer] Escherichia coli 7:59 AM CDT LABORATORY- JACK[facility] TRAL LABORATORY CULTURE <10,000 CFU/mL 06/04/2022 [facility] [employer] Multiple 7:59 AM CDT LABORATORY-JACKY organisms TRAL [...] Organization Address City/State/ZIP Code Phon e Number [employer] [address] [place] [address] LABORATORY-CENTRAL 2000 LABORATORY INFLUENZA A/B/H1N1 PCR (06/02/2022 12:39 AM CDT) Patholo gist Method Time Signature INFLUENZA A NOT Detected 06/02/2022 [place] PCR 1:23 AM CDT [facility] INFLUENZA B NOT Detected 06/02/2022 [place] PCR 1:23 AM CDT [facility] LABORATORY Specimen Anatomical Location / Collection Method Collection Selvin e Received Time (Source) Laterality / Volume Other SPECIMEN FROM Non-Blood / 06/02/2022 12:39 06/02/2022 NASOPHARYNGEAL Unknown AM CDT 12:52 AM CDT STRUCTURE / Unknown Cayetano Shay MD MICROBIOLOGY Performing Organization Address City/[facility] Phon e Number [facility]ORAT[facility] [address] [place] [address] EKG 12 Lead (06/02/2022 12:29 AM CDT) Component Value Ref Range Test Analysis Performed Pathologis t Method Time At [facility] Interpretation Atrial fibrillation BEYON D NOW Nonspecific ST abnormality Abnormal ECG Ventricular Rate 79 BPM BEYOND NOW Atrial Rate 69 BPM BEYOND NOW P-R Interval ms BEYOND NOW QRS Duration 110 ms BEYOND NOW QT 362 ms BEYOND NOW QTc 415 ms BEYOND NOW P [place] degrees BEYOND NOW R [place] 26 degrees BEYOND NOW T [place] 26 degrees BEYOND NOW Specimen Anatomical Collection Method Collection Time Receive d Time (Source) Location / / Volume Laterality 06/02/2022 12:29 06/02/2022 4:21 AM CDT AM CDT Cayetano Shay MD EKG ORD Performing Organization Address City/[facility] Phon e Number BEYOND NOW [place], [place] (ABNORMAL) C-REACTIVE PROTEIN (06/02/2022 12:25 AM CDT) Analysis Performed At Patho logist Time Signature C-REACTIVE 1.36 (H) <0.50 06/02/2022 [place] PROTEIN mg/dL 5:38 AM CDT [facility] Specimen Anatomical Collection Method Collection Time Receive d Time (Source) Location / / Volume Laterality Blood BLOOD SPECIMEN / Butterfly / 06/02/2022 12:25 022 Unknown Unknown AM CDT 12:29 AM CDT Giovanni Lara MD CHEMISTRY Performing Organization Address City/[facility]/ZIP [facility] Phon e Number [facility] [address] [place] [address] LAB TRACKING EVENT (04/07/2022 11:40 AM CDT) Specimen Anatomical Collection Method Collection Time Receive d Time (Source) Location / / Volume Laterality Other (Other) Client Collect / 04/07/2022 11:40 2021 3:34 Unknown AM CDT PM CDT Doctor Unknown LAB BILL ONLY Performing Organization Address City/State/ZIP Code Phon e Number [facility] [address] [place] [address] LABORATORY-CENTRAL 2000 LABORATORY PATH TISSUE EXAM (04/07/2022 11:40 AM CDT) Component Value Ref Test Analysis Performed At [facility] gist Range Method Time Signature Case Report Pathology Report ?Case: [id number] ? 04/12/2022 [employer] Authorizing Provider: ??Unkn own, Doctor ?Collected: ? 04/07/2022 1140 ? 11:31 AM LAB ORATORY-CE Ordering Location: ? L CENTRAL LAB ?Received: ?04/08/2022 1609 ? CDT N TRAL Pathologist: ? Ricky Lisa ? LABORATORY ? MD Jessie ? Specimen: ?Right Clavicl e ? Final A) SKIN, RIGHT CLAVICLE, WOUND, BIOPSY: 04/12/2022 [employer] [employer] Electronically Diagnosis 1. Ulceration with serum crust and underlying granulat ion tissue 11:31 AM LABORATORY-CE signed by 2. Negative for malignancy CDT NTR Ricky Roberts LABORATORY Jose mcgill MD on 04/12/20 at 11:31 AM Comment The presence 04/12/2022 [employer] of blue and 11:31 AM LABORATORY-CE green ink are CDT NTRAL confirmed on LABORATORY tissue sections. Clinical Mr. Guthrie is 04/12/2022 [employer] Information a 72 y.o. with 11:31 AM LABORATORY-CE a right CDT NTRAL clavicle LABORATORY wound, post excision site. Gross A) Received in formalin, lab eled with the patient's name and right clavicle, are two skin punch biopsies. The first is a 0.3 x 0.3 x 0.4 cm skin punch biopsy. The skin surface displays a 0.2 x 0.1 cm 04/12/2022 [employer] Description depressed brown possible les ion. The [...] LABORATORY LH 04/08/2022 Microscopic The final 04/12/2022 [employer] Description diagnosis is 11:31 AM LABORATORY-CE based on CDT NTRAL microscopic LABORATORY examination of appropriate sections of all specimens. Additional 04/12/2022 [employer] Information Interpreted at [facility], [facility] Laboratory - [address], [place] [address] 11:31 AM LABORATORY-CE CDT NTRAL LABORATORY Specimen Anatomical Collection Method Collection Time Receive d Time (Source) Location / / Volume Laterality Other (Right 04/07/2022 11:40 04/08/2022 4:09 Clavicle) AM CDT PM CDT Doctor Unknown PATHOLOGY/CYTOLOGY Performing Organization Address City/State/ZIP Code Phon e Number [facility] [address] [place] [address] LABORATORY-CENTRAL 2000 LABORATORY from Last 3 Months Additional Health Concerns Infection Onset Date Last Indicated MRSA ClearanceComment: If >12 months sin ce positive culture, precautions can be discontinued if patient has no MRSA risk factors. 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 right check exclusions for contact precaution dis continuation (if > 12 months since positive culture): resides in acute/mcfp care, receiving hemodialysis, has chronic open wounds/skin [...] Group Dates MEDICARE PART MEDICARE PART A [id number] 2011-Prese A TTN: CLAIMS A - HB USE HB ONLY nt [address] [place] [address] MEDICARE PART MEDICARE PART B [id number] 2012-Pres A TTN: CLAIMS B - HB USE HB ONLY [place] [address] [place] [address] MEDICARE - PB MEDICARE PB [id number] 2014-Prese ATTN: CLAIMS USE ONLY ONLY nt [address] [place] [address] BLUE CROSS BLUE CROSS OF [id number] 2016-Prese [address] [place] [address] BLUE CROSS BLUE CROSS OF [id number] 2013-Prese [address] [place] [address] MEDICARE PPS HC MEDICARE PPS [id number] 2011-Prese [address] [place] [address] (Home) [place] [address] Diego Guthrie Personal/Family Self [address] (Home) [place] [address] Diego Guthrie Personal/Family Self [address] (Home) [place] [address] Diego Guthrie Senior Care Self [address] (Home) [place] [address] Advance Directives Documents on File Type Date Recorded Patient Clinical Director Explanati on POLST 09/26/2020 Latest Code Status [...] PM Code Status Discussion: Discussed Care Teams Shop Lead Relationship Specialty Start Date End Date Momo Forbes MD PCP - General Family Practice 01/22/211999 [place] [address]
--- OUTSIDE RECORDS SUMMARY | 2022-06-30 10:52 | XMS_ITS | Encounter Summary ---
:1950 Author Organization [place] Address [address] [place] [address] Care Team Providers Name Role Phone Momo Forbes Primary Care Provider Joseph Quintana MD Unavailable Encounter Details Date Type Department Care Team Description 06/05/2022 Telephone [facility] Evelyn Schuster RN Transplant Clinic [address] [phone] [facility] [phone] [place] [address] (Wo rk) Social History Tobacco [...] on filedocumented in this encounter Care Teams Fern Cutter Relationship Specialty Start Date End Date Momo Forbes PCP - General Family Practice 01/02/14 [facility] [address] [place] [address] Joseph Quintana, Assigned Nephrology 03/29/21 MD Provider 7 [facility] 353 [facility] [address] [place], [place] [id number] documented as of this encounter
--- OUTSIDE RECORDS SUMMARY | 2022-06-30 10:52 | XMS_ITS | Encounter Summary ---
:1950 Author Organization [place] Address [address] [place] [address] Care Team Providers Name Role Phone Momo Forbes Primary Care Provider Joseph Quintana MD Unavailable Encounter Details Date Type Department Care Team Description 11/16/2021 External Order [facility] Outside, Provide r Results Molecular Diagnostic s [address] [place] [phone] Social History Tobacco Use Types Packs/Day Years [...] [facility] Code Phon e Number BREEZE PFT NON-INTERFACED (ONBASE SCANS) (ABNORMAL) Lipid Profile (11/16/2021 7:12 PM CDT) [facility] Method Time Signature Cholesterol 98 90 [...] Platelets & Differential (11/16/2021 4:35 PM CDT) [facility] Method Time Signature WBC Count 6.8 [...] on filedocumented in this encounter Care Teams Mirror Maker Relationship Specialty Start Date End Date Momo Forbes PCP - General Family Practice 01/02/14 [facility] [address] [place] [address] Joseph Quintana, Assigned Nephrology 03/29/21 Provider 7 [facility] 353 [facility] [address] [place] [address] documented as of this encounter
--- OUTSIDE RECORDS SUMMARY | 2022-06-30 10:52 | XMS_ITS | Encounter Summary ---
:1950 Author Organization [place] Address [facility] [address] Care Team Providers Name Role Phone Momo Forbes Primary Care Provider Joseph Quintana MD Unavailable Encounter Details Date Type Department Care Team Description 08/25/2021 Orders Only [facility] Jose, Kidney tr ansplanted; Transplant Clinic BOGDAN Marcano -donor kidney transp lant recipient [address] [place] [address] Social History Tobacco Use Types [...] transplant documented in this encounter Care Teams Chipper Operator Relationship Specialty Start Date End Date Momo Forbes PCP - General Family Practice 01/02/14 [facility] [address] [place] [address] Joseph Quintana, Assigned Nephrology 03/29/21 Provider 717 [facility] 353 [facility] [address] [place], [place] [address] documented as of this encounter
--- OUTSIDE RECORDS SUMMARY | 2022-06-30 10:52 | XMS_ITS | Encounter Summary ---
:1950 Author Organization [place] Address [facility] [place] [address] Care Team Providers Name Role Phone Momo Forbes Primary Care Provider Joseph Quintana MD Unavailable Reason for Visit Reason Onset Date Comments Refill Request 08/25/2021 Prograf 0.5mg Encounter Details Date Type Department Care Team Description 08/25/2021 Telephone [facility] [place], Refil l Request (Prograf Transplant Clinic 0.5mg) [address] [place] [phone] Social History Tobacco Use Types [...] CPA: [facility] COLLABORATIVE AGREEMENT FOR IMMUNOSUPPRESSENT PRESCRIPTION MODIFICATION. Routing encounter to Transplant as an FYI. 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
--- OUTSIDE RECORDS SUMMARY | 2022-06-30 10:52 | XMS_ITS | Encounter Summary ---
:1950 Author Organization [place] Address [address] [place] [address] Care Team Providers Name Role Phone Momo Forbes Primary Care Provider Joseph Quintana MD Unavailable Encounter Details Date Type Department Care Team Description 12/09/2021 External Order [facility] Outside, Provide r Results Molecular Diagnostic s [address] [place] [phone] Social History Tobacco Use Types Packs/Day Years [...] (12/09/2021 11:50 AM CDT) Analysis Performed At [facility] logist Time Signature WBC Count [...] filedocumented in this encounter Care Teams Manager Drilling Relationship Specialty Start Date End Date Momo Forbes PCP - General Family Practice 01/02/14 [facility] [address] [place] [address] Joseph Quintana, Assigned Nephrology 03/29/21 MD Provider [address] [place] [address] [address] [place], [place] [address] documented as of this encounter
--- OUTSIDE RECORDS SUMMARY | 2022-06-30 10:52 | XMS_ITS | Encounter Summary ---
:1950 Author Organization [place] Address [facility] [place] [address] Care Team Providers Name Role Phone Momo Forbes Primary Care Provider Joseph Quintana MD Unavailable Reason for Visit Reason Onset Date Comments Erroneous encounter-disregard 05/02/2022 Encounter Details Date Type Department Care Team Description 05/02/2022 [facility] Gretta Peacock, [facility] encounter-disregard [address] [place] [address] Social History Tobacco Use Types [...] [facility] [address] [place] [address] Joseph Quintana, Assigned Nephrology 03/29/21 Provider 717 [facility] 353 [facility] [address] [place] [address] documented as of this encounter
--- OUTSIDE RECORDS SUMMARY | 2022-06-30 10:52 | XMS_ITS | Encounter Summary ---
:1950 Author Organization [place] Address [address]50 [facility] [place] [address] Care Team Providers Name Role Phone Momo Forbes Primary Care Provider Joseph Quintana MD Unavailable Encounter Details Date Type Department Care Team Description 06/02/2022 Documentation Only [facility] Dash Gómez am, MD Nephrology Clinic [address] [place] [address] [id number] [phone] Social History Tobacco Use Types Packs/Day Years [...] Satish Gómez MD, [place] Transplant Nephrology Pager: [phone] documented in this encounter Plan of Treatment Not on filedocumented as of this encounter Visit Diagnoses Not on filedocumented in this encounter Care Teams Vice President Of Academic Affairs Relationship Specialty Start Date End Date Momo Forbes PCP - General Family Practice 01/02/14 [facility] [address] [place] [address] Joseph Quintana, Assigned Nephrology 03/29/21 MD Provider 717 [facility] 353 [facility] [address] [place] [address] documented as of this encounter
--- OUTSIDE RECORDS SUMMARY | 2022-06-30 10:53 | XMS_ITS | Encounter Summary ---
:1950 Author Organization [place] Address [address] [place] [address] Care Team Providers Name Role Phone Momo Forbes Primary Care Provider Joseph Quintana MD Unavailable Encounter Details Date Type Department Care Team Description 01/27/2021 External Order [facility] Outside, Provider Results Transplant Clinic [address] [place] [phone] Social History Tobacco Use Types Packs/Day [...] with platelets differential (01/27/2021 11:45 AM CDT) [facility] gist Method Time Signature WBC [...] on filedocumented in this encounter Care Teams Designer Writer Relationship Specialty Start Date End Date Momo Forbes PCP - General Family Practice 01/02/14 [facility] [address] [place] [address] Joseph Quintana, Assigned Nephrology 03/29/21 MD Provider [address] [place] [address] [address] [place] [address] documented as of this encounter
--- OUTSIDE RECORDS SUMMARY | 2022-06-30 10:53 | XMS_ITS | Encounter Summary ---
:1950 Author Organization [place] Address [address] [facility] [place] [address] Care Team Providers Name Role Phone Momo Forbes Primary Care Provider Joseph Quintana MD Unavailable Encounter Details Date Type Department Care Team Description 05/26/2020 External Order [facility] Outside, Provider Results Transplant Clinic [address] [place] [address] Social History Tobacco Use Types [...] with platelets differential (05/26/2020 10:25 AM CDT) [facility] gist Method Time Signature WBC Count [...] on filedocumented in this encounter Care Teams Horticulture/Floriculture Teacher Relationship Specialty Start Date End Date Momo Forbes PCP - General Family Practice 01/02/14 [facility] [address] [place] [address] Joseph Quintana, Assigned Nephrology 03/29/21 MD Provider [address] [place] [address] 353 [facility] [address] [place], [place] [address] documented as of this encounter
--- OUTSIDE RECORDS SUMMARY | 2022-06-30 10:53 | XMS_ITS | Encounter Summary ---
:1950 Author Organization [place] Address [facility] [place] [address] Care Team Providers Name Role Phone Momo Forbes Primary Care Provider Reason for Visit Reason Onset Date Comments Critical Values 07/08/2020 Encounter Details Date Type Department Care Team Description 07/08/2020 Telephone [facility] Cristy Chen LPN C ritical Values Transplant Clinic [address] [place] [address] [phone] Social History Tobacco Use Types Packs/Day Years Used Date Smoking Tobacco: Former Cigars Quit : 08/22/2006 Smokeless Tobacco: Never Alcohol Use Standard Drinks/Week Comments Yes 0 (1 standard drink = 0.6 oz pure alcoho l) occasional drink. Sex Assigned at Date Recorded Not on file documented as of this encounter Miscellaneous Notes Telephone Encounter - Barbie Ugalde RN - 07/08/2020 4:10 PM PROFILER Call placed to Latrell regarding the critical blood sugar value of 404 on 07/08. He states he was fasting for 12 hours. He has Humolog and Lantus for blood sugar correction. He seen his PCP, Dr. Forbes on Tuesday who commented on his hemoglobin A1C of 9 per Latrle[facility]. He is not sure who is managing diabetes or prescribing his insulin. He thought Dr. Presley was managing. Explained to Latrell that Dr. Presley resigned over the summer and that as a transplant spindle setter he was not prescribing his insulin. Per Dr. Huerta from visit in 10/09/19: # Diabetes: Poorly controlled (HbA1c >9%) Last HbA1c: 13.7%. - Management as per primary care. - Recommended all blood sugars stay below 200, with fasting between 90 and 130. ?? Latrell states that he lost his blood sugar meter but he can pick one up at [facility]. He asked how often he should [...] level. Latrell states he returns to 08/08. ILER Telephone Encounter - Cristy Chen LPN - 07/08/2020 3:39 PM CST DATE: 07/08/2020 TIME OF RECEIPT FROM LAB: 3:30 PM LAB TEST: Glucose LAB VALUE: 407 RESULTS GIVEN WITH READ-BACK TO (PROVIDER): Barbie Ugalde RN TIME LAB VALUE REPORTED TO PROVIDER: 3:39 PM ILER documented in this encounter Plan of Treatment Not on filedocumented as of this encounter Visit Diagnoses Not on filedocumented in this encounter Care Teams Women'S Studies Lecturer Relationship Specialty Start Date End Date Momo Forbes PCP - General Family Practice 01/02/14 [facility] [address] [place] [address] documented as of this encounter
--- OUTSIDE RECORDS SUMMARY | 2022-06-30 10:53 | XMS_ITS | Encounter Summary ---
:1950 Author Organization [place] Address [facility] [place] [address] Care Team Providers Name Role Phone Momo Forbes Primary Care Provider Reason for Visit Reason Onset Date Comments Refill Request 05/07/2020 Mycophenplate and Pr ograf Encounter Details Date Type Department Care Team Description 05/07/2020 Refill [facility] Joseph Quintana Refill R equest Nephrology Clinic MD Herminio (Mycophenplate and [address] Prograf) [address] [place] [phone] Social History Tobacco Use Types Packs/Day Years [...] transplant documented in this encounter Care Teams Pockets And Pieces Necktie Operator Relationship Specialty Start Date End Date Momo Forbes PCP - General Family Practice 01/02/14 [facility] [address] [place] [address] documented as of this encounter
--- OUTSIDE RECORDS SUMMARY | 2022-06-30 10:53 | XMS_ITS | Encounter Summary ---
:1950 Author Organization [place] Address [address] [place] [address] Care Team Providers Name Role Phone Momo Forbes Primary Care Provider Joseph Quintana MD Unavailable Reason for Visit Reason Onset Date Comments Transplant Lab 05/04/2021 Encounter Details Date Type Department Care Team Description 05/04/2021 Telephone [facility] Transplant Krys Garcia, Transplant Lab Clinic RN [address] [place] [address] [phone] Social History Tobacco Use Types [...] maroon colored stools. Stateshe had colonoscopy with [place] about a year ago. Appears in CareEverywhere colonoscopy was 03/20/2015. Latrell denies infectious symptoms currently but reports he had R foot surgery at [facility] this last winter for diabetic foot ulcer. Infection in bottom of foot; laid up since Sep. Pretty well healed except a little speck. Follows up with Dr. Chatterjee. Will check iron panel on next labs. Orders sent. Barbie Ugalde, RN, BSN Solid Organ Transplant, Post Kidney and Pancreas Transplant Wellness Consultant [phone] Telephone Encounter - Krys Garcia RN - 05/04/2021 8:09 AM CDT ISSUE: Falling hemoglobin. documented in this encounter Plan of Treatment Not on filedocumented as of this encounter Visit Diagnoses Not on filedocumented in this encounter Care Teams Transplant Nurse Relationship Specialty Start Date End Date Momo Forbes PCP - General Family Practice 01/02/14 [facility] [address] [place] [address] Joseph Quintana, Assigned Nephrology 03/29/[address] [place] [place] [address] 1932 [place], [place] [address] documented as of this encounter
--- OUTSIDE RECORDS SUMMARY | 2022-06-30 10:53 | XMS_ITS | Encounter Summary ---
:1950 Author Organization [place] Address [address] [place] [address] Care Team Providers Name Role Phone Momo Forbes Primary Care Provider Encounter Details Date Type Department Care Team Description 01/30/2021 Telephone [facility] Transplant Viv Torres RN [place] [phone] Social History Tobacco Use Types Packs/Day [...] Message Received: Today Beny Staton, [facility] Barbie Ugalde, BOGDAN Diego has not ordered tacro 0.5mg in over a year. ??He just ordered 1mg today but not the 0.5mg. Beny Staton [facility] Specialty Pharmacist [phone] BILL COLLECTOR task: Can you please call Diego to find out what dose of tacrolimus he is taking and notify coordinator if different than what is prescribed. Recommend repeat tacrolimus level for previously elevated level 7.3, goal 4-6. Thank you, Barbie Ugalde RN, BSN Solid Organ Transplant, Post Kidney and Pancreas Transplant Developmental Specialist [phone] Telephone Encounter - Viv Torres RN - [...] transplant documented in this encounter Care Teams Qualification Engineer Relationship Specialty Start Date End Date Momo Forbes PCP - General Family Practice 01/02/[address] [place] [address] documented as of this encounter
--- OUTSIDE RECORDS SUMMARY | 2022-06-30 10:53 | XMS_ITS | Encounter Summary ---
:1950 Author Organization [place] Address [address] [place] [address] Care Team Providers Name Role Phone Momo Forbes Primary Care Provider Reason for Visit Reason Onset Date Comments Transplant 01/07/2021 Encounter Details Date Type Department Care Team Description 01/07/2021 Telephone [facility] Barbie Ugalde nsplanlynda Transplant Clinic BOGDAN Nam [address] [place] [address] [phone] Social History Tobacco Use Types Packs/Day [...] CDT Patient Call: Transplant Lab/Orders Route to PRODUCT SAFETY TESTER Post Transplant Days: 2530 When patient is less than 60 days post-transplant, route high priority Reason for Call: Annual lab reorder fax labs to [facility] lab at [phone] Labs drawn Waiting fororders Callback needed? No documented in this encounter Plan of Treatment Not on filedocumented as of this encounter Visit Diagnoses Not on filedocumented in this encounter Care Teams Fire Management Specialist Relationship Specialty Start Date End Date Momo Forbes PCP - General Family Practice 01/02/14 [facility] [address] [place] [address] documented as of this encounter
--- OUTSIDE RECORDS SUMMARY | 2022-06-30 10:53 | XMS_ITS | Encounter Summary ---
:1950 Author Organization [place] Address [facility] [place] [address] Care Team Providers Name Role Phone Forbes, Ton Primary Care Provider Reason for Visit Reason Onset Date Comments Transplant Immunosuppression Management 08/11/2020 Encounter Details Date Type Department Care Team Description [facility]bie [facility]galde [facility] nsplant Transplant Clinic BOGDAN Nam Immunosuppression [address] [place] [address] [place] [address] Social History Tobacco Use Types [...] Barbie Ugalde RN - 08/11/2020 4:16 PM CLAY SHOP SUPERVISOR ISSUE: Tacrolimus IR level 11.7 on 08/08/20, [...] Organ Transplant, Post Kidney and Pancreas Transplant Tieing Machine Operator [phone] OUTCOME: Spoke with patient, they confirm accurate trough level and current dose 2 mg BID. Patient confirmed dose change to 1.5 mg BID and to repeat labs in 1 weeks. Orders sent to preferred pharmacy for dose change and lab for repeat labs. Patient voiced understanding of plan. 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
--- OUTSIDE RECORDS SUMMARY | 2022-06-30 10:53 | XMS_ITS | Encounter Summary ---
:1950 Author Organization [place] Address [address] [place] [address] Care Team Providers Name Role Phone Momo Forbes Primary Care Provider Reason for Visit Reason Onset Date Comments Transplant 10/23/2020 Encounter Details Date Type Department Care Team Description 10/23/2020 Telephone [facility] Barbie Ugalde nsplant Transplant Clinic BOGDAN Nam [address] [place] [phone] Social History Tobacco Use Types [...] Barbie Ugalde RN - 10/23/2020 1:10 PM GEOGRAPHIC ANALYST Latrell reports his labs were done yesterday morning at [facility]. Last night ended upat ER at [facility]. Hospital printed out copy of labs and he is worried about creatinine. Latrell states he had R foot infection that needed to be cleaned out; Had surgery last day of August onfoot at [place]. Was hospitalized 10 days before going to [facility]. Last night his blood sugar was dropping low into 70s and [facility] staff thought his BP was jumping around to much. This morning is BP 130/76, but last night 170s. Explained to Latrell that it has been a year since lastnephrology appointment and he needs to be seen for transplant follow up. He agreed but did not want to schedule at this time but will call back to schedule. Call placed to [facility] lab to fax results. Per Lab need to speak with information management department to release records or go thru [facility] to have orders faxed. [...] and repeating post-transplant labs in 1-2 weeks. RAPHIC ANALYST Telephone Encounter - Tasia Mack - 10/23/2020 10:03 AM CST Patient Call: Transplant Lab/Orders Route to MINISTER ASSISTANT Post Transplant Days: 2455 When patient is less than 60 days post-transplant, route high priority Reason for Call: Discuss lab results; which results? creatine level Callback needed? Yes Return Call Needed Same as documented in contacts section When to return call?: Greater than one day: Route standard priority RAPHIC ANALYST documented in this encounter Plan of Treatment Not on filedocumented as of this encounter Visit Diagnoses Not on filedocumented in this encounter Care Teams Sales Force Developer Relationship Specialty Start Date End Date Momo Forbes PCP - General Family Practice 01/02/14 [facility] [address] [place] [address] documented as of this encounter
--- OUTSIDE RECORDS SUMMARY | 2022-06-30 10:53 | XMS_ITS | Encounter Summary ---
:1950 Author Organization [place] Address [address] [place] [address] Care Team Providers Name Role Phone ForbesMomo Primary Care Provider Reason for Visit Reason Onset Date Comments Transplant 07/11/2020 Encounter Details Date Type Department Care Team Description 07/11/2020 Telephone [facility] Barbie Ugalde Transplant Clinic BOGDAN Nam [address] [place], [place] [phone] Social History Tobacco Use Types Packs/Day Years Used Date Smoking Tobacco: Former Cigars Quit : 08/22/2006 Smokeless Tobacco: Never Alcohol Use Standard Drinks/Week Comments Yes 0 (1 standard drink = 0.6 oz pure alcoho l) occasional drink. Sex Assigned at Date Recorded Not on file documented as of this encounter Miscellaneous Notes Telephone Encounter - Barbie Ugalde RN - 07/11/2020 2:11 PM DIRECTOR IT ISSUE: Potassium 5.2 on 07/08/20. PLAN: Assess for high dietary intake of potassium. Encouraged Diego to reduce the amount of bananas and potatoes he admitted to eating high amounts of. OUTCOME: Please have pt repeat BMP in 1 week. Orders sent CTOR IT Telephone Encounter - Barbie Ugalde RN - 07/11/2020 1:41 PM DIRECTOR IT ISSUE: Tacrolimus IR level 2.2 on 07/08/20 [...] for repeatlabs. Patient voiced understanding of plan. CTOR IT documented in this encounter Plan of Treatment Not on filedocumented as of this encounter Visit Diagnoses Diagnosis -donor kidney transplant recipie nt Kidney replaced by transplant Kidney transplanted Kidney replaced by transplant documented in this encounter Care Teams Medical Office Scheduler Relationship Specialty Start Date End Date Momo Forbes PCP - General Family Practice 01/02/14 [place] [address] documented as of this encounter
--- OUTSIDE RECORDS SUMMARY | 2022-06-30 10:53 | XMS_ITS | Encounter Summary ---
:1950 Author Organization [place] Address [address] [place] [address] Care Team Providers Name Role Phone Forbes, Momo He Primary Care Provider Reason for Visit Reason Onset Date Comments Transplant Immunosuppression Management 09/08/2020 Encounter Details Date Type Department Care Team Description 09/08/2020 Telephone [facility] Tram, Transplant Transplant Clinic Barbie Nam, Rc [address] [place] [address] [place] [address] Social History Tobacco Use Types [...] Barbie Ugalde RN - 09/09/2020 3:06 PM THERAPEUTIC DIETITIAN Second call placed to patient and voicemail message left. APEUTIC DIETITIAN Telephone Encounter - Barbie Ugalde RN - 09/08/2020 10:31 AM THERAPEUTIC DIETITIAN Images from the original note were not included. Message Received: 3 days ago Message Contents Beny Staton, [facility] Barbie Ugalde, BOGDAN ?? Latrell has not filled immunos since 07/21. ??His tacro dose changed and he has not filled the 0.5mg in over a year. ??He has not returned our calls. ?? Beny Staton [facility] Specialty Pharmacist [phone] OUTCOME: Tacrolimus dose was decreased from 2mg [...] he is currently taking and need labs. APEUTIC DIETITIAN documented in this encounter Plan of Treatment Not on filedocumented as of this encounter Visit Diagnoses Not on filedocumented in this encounter Care Teams Instructor Physical Relationship Specialty Start Date End Date Momo Forbes PCP - General Family Practice 01/02/[address] [address] documented as of this encounter
--- OUTSIDE RECORDS SUMMARY | 2022-06-30 10:53 | XMS_ITS | Encounter Summary ---
:1950 Author Organization [place] Address [address] [place] [address] Care Team Providers Name Role Phone Forbes, Ton Primary Care Provider Reason for Visit Reason Comments Clinic Care Coordination - Follow-up Encounter Details Date Type Department Care Team Description 10/25/2019 Care Coordination [facility] Sejal Rodriguez Nephrology Clinic BOGDAN Llanos Coordination - [place] [phone] Follow-up 9 [facility] ([facility] [place] [address] Social History Tobacco Use Types [...] back (follow up BP). Romi Rodriguez RN NG ROOM ATTENDANT Romi Rodriguez RN - 10/25/2019 10:15 [...] further questions or concerns. Romi Rodriguez, RN NG ROOM ATTENDANT documented in this encounter Plan of Treatment Not on filedocumented as of this encounter Visit Diagnoses Not on filedocumented in this encounter Care Teams Balloon Seller Relationship Specialty Start Date End Date Momo Forbes PCP - General Family Practice 01/02/14 [facility] [address] [place] [address] documented as of this encounter
--- OUTSIDE RECORDS SUMMARY | 2022-06-30 10:53 | XMS_ITS | Encounter Summary ---
:1950 Author Organization [place] Address [address] [facility] [place] [address] Care Team Providers Name Role Phone Momo Forbes Primary Care Provider Reason for Visit Reason Onset Date Comments Refill Request 03/18/2020 Mycophenolate and Pr ograf 1mg Encounter Details Date Type Department Care Team Description 03/18/2020 Refill [facility] Mariano, Joseph Refill R equest Nephrology Clinic MD Herminio (Mycophenolate and [place] [address] [place] [address] SE Prograf 1mg) 909 [facility] RANJAN 353 [facility] [address] [place], [place] [address] [phone] Social History Tobacco Use Types Packs/Day Years [...] transplant documented in this encounter Care Teams Cannery Tender Engineer Relationship Specialty Start Date End Date Momo Forbes PCP - General Family Practice 01/02/14 [facility] [address] [place] [address] documented as of this encounter
--- OUTSIDE RECORDS SUMMARY | 2022-06-30 10:53 | XMS_ITS | Encounter Summary ---
:1950 Author Organization [place] Address [address] [place] [address] Care Team Providers Name Role Phone Momo Forbes Primary Care Provider Joseph Quintana MD Unavailable Encounter Details Date Type Department Care Team Description 01/07/2021 External Order [facility] Outside, Provider Results Transplant Clinic [address] [place] [phone] Social History [...] filedocumented in this encounter Care Teams Internet Marketing Coordinator Relationship Specialty Start Date End Date Momo Forbes PCP - General Family Practice 01/02/14 [facility] [address] [place] [address] Joseph Quintana, Assigned Nephrology 03/29/21 MD Provider 717 [facility] 353 [facility] [address] [place] [address] documented as of this encounter
--- OUTSIDE RECORDS SUMMARY | 2022-06-30 10:53 | XMS_ITS | Encounter Summary ---
:1950 Author Organization [place] Address [facility] [place] [address] Care Team Providers Name Role Phone Momo Forbes Primary Care Provider Encounter Details Date Type Department Care Team Description 10/23[facility]2020 [facility] BOGDAN Nam [address] [place], [place] [phone] Social History Tobacco Use [...] Barbie Ugalde RN - 10/23/2020 4:27 PM REGISTERED PRIVATE DUTY NURSE Returned call and left second voicemail message. Patient mentioned in previous phone call he was interested in donating his body upon passing to [facility] for science. Please sent to following website for more information: [email or web address] STERED PRIVATE DUTY NURSE Telephone Encounter - Gladis Sosa RN - 10/23/2020 3:21 PM CST Patient Call: Voicemail Date/Time: 10/23/20 139pm Reason for call: Patient left a message requesting a call back STERED PRIVATE DUTY NURSE documented in this encounter Plan of Treatment Not on filedocumented as of this encounter Visit Diagnoses Not on filedocumented in this encounter Care Teams Power Mule Operator Relationship Specialty Start Date End Date Momo Forbes PCP - General Family Practice 01/02/14 [facility] [address] [place] [address] documented as of this encounter
--- OUTSIDE RECORDS SUMMARY | 2022-06-30 10:53 | XMS_ITS | Encounter Summary ---
:1950 Author Organization [place] Address [facility] [place] [address] Care Team Providers Name Role Phone Momo Forbes Primary Care Provider Reason for Visit Reason Onset Date Comments Refill Request 02/04/2020 prograf, mycophenola te Encounter Details Date Type Department Care Team Description 02/04/2020 Refill [facility] Spong, Joseph Refill R equest Transplant Clinic MD Herminio (prograf, [address] [facility] [address] [facility] mycophenolate) [facility] 353 [facility] 26[address] [phone] [place] [address] (Wo rk) Social History Tobacco [...] transplant documented in this encounter Care Teams Defence Force Member Other Ranks Relationship Specialty Start Date End Date Momo Forbes PCP - General Family Practice 01/02/14 [facility] [address] [place] [address] documented as of this encounter
--- OUTSIDE RECORDS SUMMARY | 2022-06-30 10:53 | XMS_ITS | Encounter Summary ---
:1950 Author Organization [place] Address [facility]0 [facility] [place] [address] Care Team Providers Name Role Phone Momo Forbes Primary Care Provider Encounter Details Date Type Department Care Team Description 10/09/2019 Orders Only [facility] Transplant Mati Recinos RN Clinic [address] [place], [place] [phone] Social History Tobacco Use Types Packs/Day [...] 3:48 PM CST Orders updated. F[facility]ed [facility]: [facility] T [phone] F [phone] AGE LABORER documented in this encounter Plan of Treatment Not on filedocumented as of this encounter Visit Diagnoses Not on filedocumented in this encounter Care Teams Route Driver Salesperson Relationship Specialty Start Date End Date Momo Forbes PCP - General Family Practice 01/02/14 [facility] [address] [place] [address] documented as of this encounter
--- OUTSIDE RECORDS SUMMARY | 2022-06-30 10:53 | XMS_ITS | Encounter Summary ---
:1950 Author Organization [place] Address [address] [facility] [place] [address] Care Team Providers Name Role Phone Momo Forbes Primary Care Provider Joseph Quintana MD Unavailable Encounter Details Date Type Department Care Team Description 05/26/2020 External Order [facility] Outside, Provider Results Transplant Clinic [address] [place] [address] Social History Tobacco Use Types [...] on filedocumented in this encounter Care Teams Cheese Grader Relationship Specialty Start Date End Date Momo Forbes PCP - General Family Practice 01/02/14 [facility] [address] [place] [address] Joseph Quintana, Assigned Nephrology 03/29/21 MD Provider 7 [facility] 353 [facility] [address] [place], [place] [address] documented as of this encounter
--- OUTSIDE RECORDS SUMMARY | 2022-06-30 10:53 | XMS_ITS | Encounter Summary ---
:1950 Author Organization [place] Address [facility] [place] [address] Care Team Providers Name Role Phone Momo Forbes Primary Care Provider Joseph Quintana MD Unavailable Reason for Visit Reason Onset Date Comments Refill Request 08/25/2021 Encounter Details Date Type Department Care Team Description 08/25/2021 Refill [facility] Transplant Debbie Calderon LPN Refill Request Clinic [address] [place] [phone] Social History Tobacco Use Types [...] documented in this encounter Care Teams Patient Service Associate Relationship Specialty Start Date End Date Momo Forbes PCP - General Family Practice 01/02/14 [facility] [address] [place] [address] Joseph Quintana, Assigned Nephrology 03/29/[address] [place] [address] 353 [facility] [address] [place] [address] documented as of this encounter
--- OUTSIDE RECORDS SUMMARY | 2022-06-30 10:53 | XMS_ITS | Encounter Summary ---
:1950 Author Organization [place] Address [facility]0 [place] [address] Care Team Providers Name Role Phone Momo [...] filedocumented in this encounter Care Teams House Wirer Helper Relationship Specialty Start Date End Date Momo Forbes PCP - General Family Practice 01/02/14 [facility] [address] [place] [address] documented as of this encounter
--- OUTSIDE RECORDS SUMMARY | 2022-06-30 10:53 | XMS_ITS | Encounter Summary ---
:1950 Author Organization [employer] Address [address] [facility] [place] [address] Care Team Providers Name Role Phone Momo Forbes Primary Care Provider Reason for Visit Reason Onset Date Comments Transplant Lab 01/29/2020 overdue labs Encounter Details Date Type Department Care Team Description 01/29/2020 Telephone [facility] Barbie Ugalde Tra nsplant Lab Transplant Clinic BOGDAN Nam (overdue labs) [address] [place] [phone] Social History Tobacco Use Types Packs/Day [...] a kit for blood work sent to [facility] as requested. Explained kits are no longer being used for drug levels but new orders could be sent to lab if needed. [facility] [phone] (Phone) [facility] has annual order on file sent September 2019 and can fax to their new [facility] location that opened 2 weeks ago. Patient seen provider in [facility] who meryl Hemoglobin A1C and BMP butnot [...] filedocumented in this encounter Care Teams Aircraft Fueler Relationship Specialty Start Date End Date Momo Forbes PCP - General Family Practice 01/02/14 [facility] [address] [place] [address] documented as of this encounter
--- OUTSIDE RECORDS SUMMARY | 2022-06-30 10:53 | XMS_ITS | Encounter Summary ---
:1950 Author Organization [place] Address [facility] [place] [address] Care Team Providers Name Role Phone Momo Forbes Primary Care Provider Joseph Quintana MD Unavailable Encounter Details Date Type Department Care Team Description 07/08/2020 External Order [facility] Outside, Provider Results Transplant Clinic [address] [place] [phone] Social History Tobacco Use Types Packs/Day [...] 9:23 AM Results f or this RESULTS SKIN DRIER procedure are i n the results section. documented in this encounter Results External Lab Results (07/08/2020 9:23 AM SKIN DRIER) Analysis Performed At Patho logist Time Signature Scan Lab View Image LABDE SCAN Results (External) Comment: HLA Antibody Screen, Class I an d Class II Specimen (Source) Anatomical Collection Method Collection Time Re ceived Time Location / / Volume Laterality 07/08/2020 9:23 AM SKIN DRIER Narrative JESSICA PFT - 07/16/2020 2:42 PM SKIN DRIER Verified by Ruperto Pepper on 07/15/20 20. Patient Reported LABORATORY Performing Organization Address City/State/ZIP Code Phon e Number BREEZE PFT LABDE SCAN documented in this encounter Visit Diagnoses Not on filedocumented in this encounter Care Teams Position Classification Specialist Relationship Specialty Start Date End Date Momo Forbes PCP - General Family Practice 01/02/14 [facility] [address] [place] [address] Joseph Quintana, Assigned Nephrology 03/29/21 MD Provider [address] [place] [address] [address] [place], [place] [id number] documented as of this encounter
--- OUTSIDE RECORDS SUMMARY | 2022-06-30 10:53 | XMS_ITS | Encounter Summary ---
:1950 Author Organization [place] Address [address] [facility] [place] [address] Care Team Providers Name Role Phone Momo Forbes Primary Care Provider Joseph Quintana MD Unavailable Encounter Details Date Type Department Care Team Description 07/08/2020 External Order [facility] Outside, Provider Results Transplant Clinic [address] [place] [address] Social History Tobacco Use Types [...] 9:23 AM R esults for this DIFFERENTIAL FRUIT OR NUT FARM WORKER procedure are i n the results section. TACROLIMUS BY TANDEM Routine 07/08/2020 9:23 AM R esults for this MASS SPECTROMETRY FRUIT OR NUT FARM WORKER procedure are in the results section. PROTEIN RANDOM URINE Routine 07/08/2020 9:23 AM R esults for this FRUIT OR NUT FARM WORKER procedure are i n the results section. HEMOGLOBIN A1C Routine 07/08/2020 9:23 AM Results for this FRUIT OR NUT FARM WORKER procedure are i n the results section. HEMOGLOBIN A1C Routine 07/08/2020 9:23 AM Results for this FRUIT OR NUT FARM WORKER procedure are i n the results section. BASIC METABOLIC PANEL Routine 07/08/2020 9:23 AM Results for this FRUIT OR NUT FARM WORKER procedure are i n the results section. documented in this encounter Results (ABNORMAL) Protein random urine with Creat Ratio (07/08/2020 9:23 AM FRUIT OR NUT FARM WORKER) Analysis Performed At [facility] Time Signature Protein Random 73 mg/dL LABDE SCAN Urine (External) Creatinine 65 mg/dL LABDE SCAN Urine mg/dL (External) Protein Total 1.12 (H) 0 - 0.19 LABDE SCAN Ur per Cr (External) Specimen (Source) Anatomical Collection Method Collection Time Re ceived Time Location / / Volume Laterality Urine specimen 07/08/2020 9:23 AM (specimen) FRUIT OR NUT FARM WORKER Narrative BREEZE PFT - 07/11/2020 11:13 AM FRUIT OR NUT FARM WORKER Verified by Praful Huff on 2019. Patient Reported LAB - URINE ORDERABLES Performing Organization Address City/State/ZIP Code Phon e Number BREEZE PFT LABDE SCAN (ABNORMAL) Hemoglobin A1c (07/08/2020 9:23 AM FRUIT OR NUT FARM WORKER) Analysis Performed At [facility] Time Signature Hemoglobin A1C 12.3 (H) 0 - 5.6 % LABDE SCAN (External) Specimen (Source) Anatomical Collection Method Collection Time Re ceived Time Location / / Volume Laterality Blood specimen 07/08/2020 9:23 AM (specimen) FRUIT OR NUT FARM WORKER Narrative BREEZE PFT - 07/11/2020 11:13 AM FRUIT OR NUT FARM WORKER Verified by Praful Huff on 2019. Patient Reported LAB - BLOOD ORDERABLES Performing Organization Address City/[facility]/ZIP Code Phon e Number BREEZE PFT LABDE SCAN Tacrolimus level (07/08/2020 9:23 AM FRUIT OR NUT FARM WORKER) P athologist Signature Tacrolimus(FK- 2.2 See scanned LABDE SCAN 506) report ng/mL (External) Specimen (Source) Anatomical Collection Method Collection Time Re ceived Time Location / / Volume Laterality Blood specimen 07/08/2020 9:23 AM (specimen) FRUIT OR NUT FARM WORKER Narrative BREEZE PFT - 07/11/2020 11:13 AM FRUIT OR NUT FARM WORKER Verified by Praful Huff on 2019. Patient Reported LAB - BLOOD ORDERABLES Performing Organization Address City/State/ZIP Code Phon e Number BREEZE PFT LABDE SCAN (ABNORMAL) Hemoglobin A1c (07/08/2020 9:23 AM FRUIT OR NUT FARM WORKER) Analysis Performed At [facility] logist Time Signature Hemoglobin A1C 12.3 (H) 0 - 5.6 % LABDE SCAN (External) Specimen (Source) Anatomical Collection Method Collection Time Re ceived Time Location / / Volume Laterality Blood specimen 07/08/2020 9:23 AM (specimen) FRUIT OR NUT FARM WORKER Narrative MARLENEE PFT - 07/09/2020 11:03 AM FRUIT OR NUT FARM WORKER Verified by Andrade Barajas on 07/09/2020. Patient Reported LAB - BLOOD ORDERABLES Performing Organization Address City/State/ZIP Code Phon e Number BREEZE PFT LABDE SCAN (ABNORMAL) Basic metabolic panel (07/08/2020 9:23 AM FRUIT OR NUT FARM WORKER) Analysis Performed At [facility] logist Time Signature Calcium 10.1 [...] Laterality Blood specimen 07/08/2020 9:23 AM (specimen) FRUIT OR NUT FARM WORKER Narrative JESSICA PFT - 07/09/2020 11:02 AM FRUIT OR NUT FARM WORKER Verified by Andrade Barajas on 07/09/2020. Patient Reported LAB - BLOOD ORDERABLES Performing Organization Address City/State/ZIP Code Phon e Number BREEZE PFT LABDE SCAN (ABNORMAL) CBC with platelets differential (07/08/2020 9:23 AM FRUIT OR NUT FARM WORKER) [facility] gist Method Time Signature [...] Laterality Blood specimen 07/08/2020 9:23 AM (specimen) FRUIT OR NUT FARM WORKER Narrative JESSICA PFT - 07/09/2020 10:52 AM FRUIT OR NUT FARM WORKER Verified by Praful Huff on 2019. Patient Reported LAB - BLOOD ORDERABLES Performing Organization Address City/State/ZIP Code Phon e Number BREEZE PFT LABDE SCAN documented in this encounter Visit Diagnoses Not on filedocumented in this encounter Care Teams Chief Contract Officer Relationship Specialty Start Date End Date Momo Forbes PCP - General Family Practice 01/02/14 [place] [id number] Joseph Quintana, Assigned Nephrology 03/29/21 MD Provider [address] [place] [address] documented as of this encounter
--- OUTSIDE RECORDS SUMMARY | 2022-06-30 10:53 | XMS_ITS | Encounter Summary ---
:1950 Author Organization [place] Address [address] [place] [address] Care Team Providers Name Role Phone Momo Forbes Primary Care Provider Joseph Quintana MD Unavailable Encounter Details Date Type Department Care Team Description 08/08/2020 External Order [facility] Outside, Provider Results Transplant Clinic [address] [place] [address] Social History Tobacco [...] 08/08/2020 11:43 Results f or this AM [facility] MAGISTRATE procedure are i n the results section. TACROLIMUS BY TANDEM Routine 08/08/2020 11:34 Res ults for this MASS SPECTROMETRY AM [facility] MAGISTRATE procedure are in the results section. LIPID PROFILE Routine 08/08/2020 11:34 Results fo r this AM [facility] MAGISTRATE procedure are i n the results section. ALT Routine 08/08/2020 11:34 Results for this AM [facility] [facility] MAGISTRATE procedure are i n the results section. BASIC METABOLIC PANEL Routine 08/08/2020 11:34 Re sults for this AM [facility] MAGISTRATE procedure are i n the results section. documented in this encounter Results (ABNORMAL) Hemoglobin A1c (08/08/2020 11:[address] MAGISTRATE) Analysis Performed At [facility] Time Signature Hemoglobin A1C 10.2 (H) <=6.9 % LABDE SCAN (External) Specimen (Source) Anatomical Collection Method Collection Time Re ceived Time Location / / Volume Laterality Blood specimen 08/08/2020 11:43 (specimen) AM [facility] [facility] MAGISTRATE Narrative BREEZE PFT - 08/11/2020 1:[address] MAGISTRATE Verified by Praful Huff on 2019. Patient Reported LAB - BLOOD ORDERABLES Performing Organization Address City/State/ZIP Code Phon e Number BREEZE PFT LABDE SCAN Tacrolimus level (08/08/2020 11:[address] MAGISTRATE) P athologist Signature Tacrolimus(FK-5 11.7 See scan LABDE SCAN 06) (External) ng/mL Specimen (Source) Anatomical Collection Method Collection Time Re ceived Time Location / / Volume Laterality Blood specimen 08/08/2020 11:34 (specimen) AM [facility] MAGISTRATE Narrative BREEZE PFT - 08/11/2020 1:[address] MAGISTRATE Verified by Praful Huff on 2019. Patient Reported LAB - BLOOD ORDERABLES Performing Organization Address City/State/ZIP Code Phon e Number BREEZE PFT LABDE SCAN (ABNORMAL) Lipid Profile (08/08/2020 11:[address] MAGISTRATE) Patholo gist Method Time Signature Cholesterol 79 (L) 90 - 200 LABDE SCAN (External) MG/DL Triglycerides 86 40 - 197 LABDE SCAN (External) MG/DL LDL-Cholesterol 29 <100 mg/dL LABDE SCAN (External) HDL Cholesterol 33 (L) >=40 mg/dL LABDE SCAN (External) Specimen (Source) Anatomical Collection Method Collection Time Re ceived Time Location / / Volume Laterality Blood specimen 08/08/2020 11:34 (specimen) AM [facility] MAGISTRATE Narrative BREEZE PFT - 08/11/2020 1:[address] MAGISTRATE Verified by Praful Huff on 2019. Patient Reported LAB - BLOOD ORDERABLES Performing Organization Address City/State/ZIP Code Phon e Number BREEZE PFT LABDE SCAN ALT (08/08/2020 11:[address] MAGISTRATE) P athologist Signature ALT (External) 8 4 - 50 U/L LABDE SCAN Specimen (Source) Anatomical Collection Method Collection Time Re ceived Time Location / / Volume Laterality Blood specimen 08/08/2020 11:34 (specimen) AM [facility] MAGISTRATE Narrative BREEZE PFT - 08/11/2020 1:[address] MAGISTRATE Verified by Praful Huff on 2019. Patient Reported LAB - BLOOD ORDERABLES Performing Organization Address City/State/ZIP Code Phon e Number BREEZE PFT LABDE SCAN (ABNORMAL) Basic metabolic panel (08/08/2020 11:[address] MAGISTRATE) P athologist Signature Glucose 119 (H) 60 [...] Laterality Blood specimen 08/08/2020 11:34 (specimen) AM [facility] MAGISTRATE Narrative BREEZE PFT - 08/11/2020 1:[address] MAGISTRATE Verified by Praful Huff on 2019. Patient Reported LAB - BLOOD ORDERABLES Performing Organization Address City/State/ZIP Code Phon e Number BREEZE PFT LABDE SCAN documented in this encounter Visit Diagnoses Not on filedocumented in this encounter Care Teams Group Underwriter Relationship Specialty Start Date End Date Momo Forbes PCP - General Family Practice 01/02/14 [facility] [address] [place] [address] Joseph Quintana, Assigned Nephrology 03/29/21 MD Provider 7 [facility] 353 [facility] [address] [place], [place] [address] documented as of this encounter
--- OUTSIDE RECORDS SUMMARY | 2022-06-30 10:53 | XMS_ITS | Encounter Summary ---
:1950 Author Organization [place] Address [address] [place] [address] Care Team Providers Name Role Phone Forbes, Ton Primary Care Provider Reason for Visit Reason Comments Clinic Care Coordination - Follow-up Encounter Details Date Type Department Care Team Description 11/16/2019 Care Coordination [facility] Sejal Rodriguez Nephrology Clinic BOGDAN Llanos Coordination - [place] [phone] Follow-up [address] [facility] (Work) [place] [address] Social History Tobacco Use Types [...] on filedocumented in this encounter Care Teams Appointment Coordinator Relationship Specialty Start Date End Date Momo Forbes PCP - General Family Practice 01/02/14 [facility] [address] [place] [address] documented as of this encounter
--- OUTSIDE RECORDS SUMMARY | 2022-06-30 10:53 | XMS_ITS | Encounter Summary ---
:1950 Author Organization [place] Address [facility] [place] [address] Care Team Providers Name Role Phone Momo Forbes Primary Care Provider Joseph Quintana MD Unavailable Encounter Details Date Type Department Care Team Description 02/02/2021 External Order [facility] Outside, Provider Results Transplant Clinic [address] [place] [phone] Social History Tobacco Use Types Packs/Day [...] by Cassie Florian on 02/04/2021. Performed by: [facility] [address] [place], [place] ??[address] Patient Reported LABORATORY Performing Organization Address City/State/ZIP Code Phon e Number JESSICA PFT COVID-19 EXTERNAL COVID-19 [place] [address], [facility] RESULTS Result Scanned into Patient Record by [employer] Refer to Result Comment/Narrative for exact performing laboratory documented in this encounter Visit Diagnoses Not on filedocumented in this encounter Care Teams Patient Registration Rep Relationship Specialty Start Date End Date Momo Forbes PCP - General Family Practice 01/02/14 [facility] [address] [place] [address] Joseph Quintana, Assigned Nephrology 03/29/21 MD Provider 717 [facility] 353 [facility] 1932 [place] [address] documented as of this encounter
--- OUTSIDE RECORDS SUMMARY | 2022-06-30 10:53 | XMS_ITS | Encounter Summary ---
:1950 Author Organization [place] Address [address] [place] [address] Care Team Providers Name Role Phone Momo Forbes Primary Care Provider Reason for Visit Reason Onset Date Comments Transplant Immunosuppression Management 07/03/2020 Late to refill Encounter Details Date Type Department Care Team Description 07/03/2020 Telephone [facility] Tram, Transplant Transplant Clinic Barbie Nam, Immunosuppression [address] [place] [address] RN Management (Late to [place], [place] refill) [phone] Social History Tobacco [...] Barbie Ugalde RN - 07/03/2020 10:20 AM MEMBER SERVICES REPRESENTATIVE Images from the original note were not included. Late to fill IS meds Received: Yesterday Message Contents Meghan Mccormack, [facility] Barbie Ugalde RN ?? Hi Diego Valentin [...] copy to patient so he is aware. 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
--- OUTSIDE RECORDS SUMMARY | 2022-06-30 10:53 | XMS_ITS | Encounter Summary ---
:1950 Author Organization [place] Address [address] [place] [address] Care Team Providers Name Role Phone ForbesMomo Primary Care Provider Reason for Visit Reason Comments RECHECK Follow Up [place] Encounter Details Date Type Department Care Team Description 03/05/2021 Virtual Visit [facility] Joseph Quintana HTN, kevan dney transplant related (Primary Dx); Nephrology Clinic MD Herminio Kidney replaced by transplant; [address] Aftercare following organ tr ansplant; [address] [place] [address] SE [address] [address] [facility] Immunosu ppression (H); [address] Vitamin D deficiency; [place] [phone] Social History Tobacco Use Types Packs/Day Years [...] would you like to be contacted at? [phone] How would you like to obtain your [...] and ended up being discharged to a [facility]. He is doing better and now back [...] unspecified documented in this encounter Care Teams Die Machine Operator Relationship Specialty Start Date End Date Momo Forbes PCP - General Family Practice 01/02/14 [facility] [address] [place] [address] documented as of this encounter
--- OUTSIDE RECORDS SUMMARY | 2022-06-30 10:53 | XMS_ITS | Encounter Summary ---
:1950 Author Organization [place] Address [address] [place] [address] Care Team Providers Name Role Phone Momo Forbes Primary Care Provider Joseph Quintana MD Unavailable Encounter Details Date Type Department Care Team Description 04/30/2021 External Order [facility] Outside, Provide r Results Molecular Diagnostic s [address] [place] [phone] Social History Tobacco Use Types Packs/Day Years [...] Platelets & Differential (04/30/2021 11:20 AM CDT) [facility] gist Method Time Signature WBC [...] on filedocumented in this encounter Care Teams Seat Scooper Machine Relationship Specialty Start Date End Date Momo Forbes PCP - General Family Practice 01/02/14 [facility] [address] [place] [address] Joseph Quintana, Assigned Nephrology 03/29/21 MD Provider [address] [place] [address] [address] [place] [address] documented as of this encounter
--- OUTSIDE RECORDS SUMMARY | 2022-06-30 10:53 | XMS_ITS | Encounter Summary ---
:1950 Author Organization [place] Address [facility] [place] [address] Care Team Providers Name Role Phone Momo Forbes Primary Care Provider Reason for Visit Reason Onset Date Comments Transplant 02/03/2021 spoke w pt and donna rmed annual neph appt on 03/05/21 Encounter Details Date Type Department Care Team Description 02/03/2021 Telephone [facility] Barbie Ugalde (spoke w pt Transplant Clinic BOGDAN Nam and confirmed annual 909 [facility] neph appt on 03/05/21) [place] [address] Social History Tobacco Use Types [...] filedocumented in this encounter Care Teams Children'S Ministry Director Relationship Specialty Start Date End Date Momo Forbes PCP - General Family Practice 01/02/14 [facility] [address] [place], [place] [id number] documented as of this encounter
--- OUTSIDE RECORDS SUMMARY | 2022-06-30 10:53 | XMS_ITS | Encounter Summary ---
:1950 Author Organization [place] Address [address] [place] [address]. [place] [address] Care Team Providers Name Role Phone Momo Forbes Primary Care Provider Joseph Quintana MD Unavailable Reason for Visit Reason Onset Date Comments Medication Refill Refill Request 08/20/2021 Encounter Details Date Type Department Care Team Description 08/20/2021 Refill [facility] Joseph Quintana on Refill; Nephrology Clinic MD Herminio Refill Request [address] [facility] 353 [facility] [address] [place], [place] [phone] Social History Tobacco Use Types Packs/Day Years [...] transplant documented in this encounter Care Teams Dietary Cook Relationship Specialty Start Date End Date Momo Forbes PCP - General Family Practice 01/02/14 [facility] [address] [place] [address] Joseph Quintana, Assigned Nephrology 03/29/21 MD Provider 717 [facility] 353 [facility] [address] [place] [address] documented as of this encounter
--- OUTSIDE RECORDS SUMMARY | 2022-06-30 10:53 | XMS_ITS | Encounter Summary ---
:1950 Author Organization [place] Address [address] [place] [address] Care Team Providers Name Role Phone Forbes, Momo He Primary Care Provider Reason for Visit Reason Onset Date Comments Transplant Lab 05/28/2020 Encounter Details Date Type Department Care Team Description 05/28/2020 Telephone [facility] Barbie Ugalde nsplant Lab Transplant Clinic BOGDAN Nam [address] [place] [phone] Social History Tobacco Use Types [...] on 05/26/20 at 1025 collected at [facility] [phone] (Phone) CBC appears as expected Missing BMP [...] on filedocumented in this encounter Care Teams Traffic Rate Clerk Relationship Specialty Start Date End Date Momo Forbes PCP - General Family Practice 01/02/14 [facility] [address] [place] [address] documented as of this encounter
--- OUTSIDE RECORDS SUMMARY | 2022-06-30 10:54 | XMS_ITS | Encounter Summary ---
:1950 Author Organization [place] Address 2450 [facility] [place] [address] Care Team Providers Name Role Phone ForbesMomo santiago A Primary Care Provider Reason for Visit Reason Onset Date Comments Kidney Transplant 07/12/2019 Encounter Details Date Type Department Care Team Description 07/12/2019 Telephone [facility] Estefania Nguyen Transplant Transplant Clinic Amanda Fletcher RN [address] [place] [phone] Social History Tobacco Use Types Packs/Day [...] left with instruction listed below. Order placed PMENT APPLICATION SPECIALIST Telephone Encounter - Amanda Nguyen RN - 07/12/2019 12:23 PM EQUIPMENT APPLICATION SPECIALIST Clinic appt 07/17 at 4:45 Plan: Called patient to remind him of appt date/time. Asked that he complete labs prior to appt. SREEKANTH task: Please send one time lab order to complete all tx labs within the next week. PMENT APPLICATION SPECIALIST documented in this encounter Plan of Treatment Not on filedocumented as of this encounter Visit Diagnoses Not on filedocumented in this encounter Care Teams Medical Center Representative Relationship Specialty Start Date End Date Momo Forbes PCP - General Family Practice 01/02/14 [facility] [address] [place] [address] documented as of this encounter
--- OUTSIDE RECORDS SUMMARY | 2022-06-30 10:54 | XMS_ITS | Encounter Summary ---
:1950 Author Organization [place] Address [facility] [place] [address] Care Team Providers Name Role Phone Momo [...] in this encounter Care Teams High School Science Teacher Relationship Specialty Start Date End Date Momo Forbes PCP - General Family Practice 01/02/14 [facility] [address] [place] [address] documented as of this encounter
--- OUTSIDE RECORDS SUMMARY | 2022-06-30 10:54 | XMS_ITS | Encounter Summary ---
:1950 Author Organization [place] Address [facility] [place] [address] Care Team Providers Name Role Phone Momo Forbes Primary Care Provider Encounter Details Date Type Department Care Team Description 05/17/2018 Orders Only [facility] Alana Calderon Afterc are following Transplant lead designer organ transplant [address] [place] [address] (Primary Dx) [place] [address] Social History Tobacco Use Types [...] rimary documented in this encounter Care Teams Lead Nurse Relationship Specialty Start Date End Date Momo Forbes PCP - General Family Practice 01/02/14 [facility] [address] [place] [address] documented as of this encounter
--- OUTSIDE RECORDS SUMMARY | 2022-06-30 10:54 | XMS_ITS | Encounter Summary ---
:1950 Author Organization [place] Address [address] [place] [address] Care Team Providers Name Role Phone Momo Forbes Primary Care Provider Joseph Quintana MD Unavailable Encounter Details Date Type Department Care Team Description 05/16/2019 External Order [facility] Nurse, Santi Txc Afterca re following organ transplant; Results Transplant Clinic Kidney replaced by transplan t; [address] [place] [address] Encounter for long-term curr [place] [address] Social History Tobacco Use Types [...] are in Kidney replaced by the [facility] ts transplant section. Encounter for long-term current use of medication PROTEIN RANDOM URINE Routine 05/16/2019 3:36 PM Aftercare foll owing Results for this CDT organ transplant procedure are in Kidney replaced by the [facility] ts transplant section. Encounter for [...] Estimated >60 >60 LABDE SCAN (if ml/min/1.7 Hong Konger) 3m2 (External) GFR Estimated 56 (L) >60 [...] edication documented in this encounter Care Teams Survey Research Analyst Relationship Specialty Start Date End Date Momo Forbes PCP - General Family Practice 01/02/14 [facility] [address] [place] [address] Joseph Quintana, Assigned Nephrology 03/29/21 MD Provider 7 [facility] 353 [facility] 1932 [place] [address] documented as of this encounter
--- OUTSIDE RECORDS SUMMARY | 2022-06-30 10:54 | XMS_ITS | Encounter Summary ---
:1950 Author Organization [place] Address [address] [place] [address] Care Team Providers Name Role Phone ForbesMomo Primary Care Provider Reason for Visit Reason Onset Date Comments Appointment 08/24/2018 Encounter Details Date Type Department Care Team Description 08/24/2018 Telephone [facility] Nephrology Romi Garcia RN Appointment [facility] [phone] ([facility]) [address] [place] [address] [phone] Social History Tobacco Use Types Packs/Day [...] patient to call back. Romi Rodriguez RN FARM SUPPORT SPECIALIST Telephone Encounter - Romi Rodriguez RN - 08/24/2018 1:54 PM CST Left voicemail for patient to call back (follow up from last transplant appointment). Romi Rodriguez RN FARM SUPPORT SPECIALIST documented in this encounter Plan of Treatment Not on filedocumented as of this encounter Visit Diagnoses Not on filedocumented in this encounter Care Teams Curve Saw Operator Relationship Specialty Start Date End Date Momo Forbes PCP - General Family Practice 01/02/14 [facility] [address] [place] [address] documented as of this encounter
--- OUTSIDE RECORDS SUMMARY | 2022-06-30 10:54 | XMS_ITS | Encounter Summary ---
:1950 Author Organization [place] Address [address] [place] [address] Care Team Providers Name Role Phone Momo Forbes Primary Care Provider Encounter Details Date Type Department Care Team Description 11/03/2017 Orders Only [facility] Loy Morales, Rachid olivia replaced by [facility] MD transplant Laboratory [address] [facility] 500 [facility] 609 [place] [address] [id number] (Wo rk) Social History Tobacco Use Types [...] Results Tacrolimus level (11/03/2017 11:30 AM CDT) [facility] Method Time Signature Tacrolimus Not Provided 11/05/2017 [facility] Last Dose 2:20 PM CDT [facility] Tacrolimus 10.7 5.0 - 11/06/2017 [facility] Level 15.0 ug/L 1:00 PM CDT [facility] Comment: Tacrolimus [...] [facility] 500 [place], [place] [id number] [place] [address] documented in this encounter Visit Diagnoses Diagnosis Kidney replaced by transplant documented in this encounter Care Teams Secy Relationship Specialty Start Date End Date Momo Forbes PCP - General Family Practice 01/02/14 [facility] [address] [place] [address] documented as of this encounter
--- OUTSIDE RECORDS SUMMARY | 2022-06-30 10:54 | XMS_ITS | Encounter Summary ---
:1950 Author Organization [place] Address [address] [place] [address] Care Team Providers Name Role Phone Momo Forbes Primary Care Provider Encounter Details Date Type Department Care Team Description 05/15/2018 Orders Only [facility] Loy Morales MD [facility] [address] [facility] 609 500 [place], [place] [address] [place] [phone] Social History Tobacco Use Types Packs/Day Years [...] (ABNORMAL) Tacrolimus level (05/15/2018 2:13 PM CDT) [facility] Method Time Signature Tacrolimus Not Provided 05/18/2018 [...] its performa nce characteristics determined by the [facility], ??Special Chemistry Laboratory. It [...] LAB - BLOOD ORDERABLES Performing Organization Address City/State/[facility] [place] Phon e Number [address] Cyclosporine (05/15/2018 2:13 PM CDT) Component Value Ref Test Analysis Performed At [facility] gist Range Method Time Signature Cyclosporine CANCELLED BY 05/17/2018 [facility] Last Dose BOGDAN KOLB 1:00 PM CDT [facility] ON [facility] 05/17/18 AT CAMPUS 1300 BY [place] Comment: CORRECTED ON 05/17 AT 1300: PRE VIOUSLY REPORTED [id number] Cyclosporine Level CANCELLED BY RN 50 - 400 05/17/2018 1:00 [facility] C[place] ug/L PM CDT [facility] ON [facility] 05/17/18 AT 1300 BY [place] Comment: CORRECTED ON 05/17 AT 1300: PRE VIOUSLY REPORTED <25 Specimen Anatomical Collection Method Collection Time Receive d Time (Source) Location / / Volume Laterality 05/15/2018 2:13 PM 8 9:59 CDT AM CDT Orlando Richey MD LAB - BLOOD ORDERABLES Performing Organization Address City/[facility] [place] Phon e Number [address] documented in this encounter Visit Diagnoses Not on filedocumented in this encounter Care Teams Set Up Mechanic Stamping Machines Relationship Specialty Start Date End Date Momo Forbes PCP - General Family Practice 01/02/14 [facility] [address] [place] [address] documented as of this encounter
--- OUTSIDE RECORDS SUMMARY | 2022-06-30 10:54 | XMS_ITS | Encounter Summary ---
:1950 Author Organization [place] Address [address] [place] [address] Care Team Providers Name Role Phone Momo Forbes Primary Care Provider Reason for Visit Reason Onset Date Comments Transplant Lab 09/06/2018 Encounter Details Date Type Department Care Team Description 09/06/2018 Telephone [facility] Transplant Adon[place], Transplant Lab Clinic BOGDAN Lopes [address] [address] [phone] Social History Tobacco Use Types Packs/Day Years Used Date Smoking Tobacco: Former Cigars Quit : 08/22/2006 Smokeless Tobacco: Never Alcohol Use Standard Drinks/Week Comments Yes 0 (1 standard drink = 0.6 oz pure alcoho l) occasional drink. Sex Assigned at Date Recorded Not on file documented as of this encounter Miscellaneous Notes Telephone Encounter - Marianne Urias RN - 09/12/2018 11:58 AM WHEELMAN Attempted to reach pt again regarding his labs, no answer. Left message for pt to return call. LMAN Telephone Encounter - Marianne Urias RN - 09/07/2018 1:30 PM WHEELMAN Attempted to reach pt again regarding labs, no answer. Left message for pt to return call. LMAN Telephone Encounter - Marianne Urias RN - 09/06/2018 12:59 PM WHEELMAN ISSUE: Creatinine 1.69, up from pt baseline [...] Left message for pt to return call. LMAN documented in this encounter Plan of Treatment Not on filedocumented as of this encounter Visit Diagnoses Not on filedocumented in this encounter Care Teams Head Mva Reactor Operator Relationship Specialty Start Date End Date Momo Forbes PCP - General Family Practice 01/02/14 [facility] [address] [place] [address] documented as of this encounter
--- OUTSIDE RECORDS SUMMARY | 2022-06-30 10:54 | XMS_ITS | Encounter Summary ---
:1950 Author Organization [place] Address [facility] [place] [address] Care Team Providers Name Role Phone Momo [...] on filedocumented in this encounter Care Teams Agency Sales Management Assistant Relationship Specialty Start Date End Date Momo Forbes PCP - General Family Practice 01/02/14 [facility] [address] [place] [address] documented as of this encounter
--- OUTSIDE RECORDS SUMMARY | 2022-06-30 10:54 | XMS_ITS | Encounter Summary ---
:1950 Author Organization [place] Address [address] [place] [address] Care Team Providers Name Role Phone Momo Forbes Primary Care Provider Reason for Referral Consultation - Closed Specialty Diagnoses / Procedures Referred By Contact Refer red To Contact Diagnoses Obesity Kidney transplanted [facility] [address] [place] [address] Referral ID Status Reason Start Date Expiration Date Visits Requ ested Visits Authorized [id number] Closed 10/17/2018 10/17/2019 1 1 CHMAN SUPERVISOR Reason for Visit Reason Comments Transplant Encounter Details Date Type Department Care Team Description 10/17/[address] [facility] Kavon Nazia Obesity (P rimary Dx); Transplant Clinic BOGDAN Hicks Kidney transplanted [address] [place] [address] Social History Tobacco Use Types [...] transplant documented in this encounter Care Teams Caterers Helper Relationship Specialty Start Date End Date Forbes, Ton PCP - General Family Practice 01/02/14 [facility] [address] [place] [address] documented as of this encounter
--- OUTSIDE RECORDS SUMMARY | 2022-06-30 10:54 | XMS_ITS | Encounter Summary ---
:1950 Author Organization [place] Address [address] [place] [address]. [place] [address] Care Team Providers Name Role Phone Momo Forbes Primary Care Provider Reason for Visit Reason Onset Date Comments Refill Request 02/28/2019 Encounter Details Date Type Department Care Team Description 02/28/2019 Refill [facility] Shiva Presley MD Refill Request Nephrology Clinic [facility] [address] [place] [phone] Social History Tobacco Use Types Packs/Day Years [...] disease documented in this encounter Care Teams Engraver Jewelry Relationship Specialty Start Date End Date Momo Forbes PCP - General Family Practice 01/02/14 [facility] [address] [place] [address] documented as of this encounter
--- OUTSIDE RECORDS SUMMARY | 2022-06-30 10:54 | XMS_ITS | Encounter Summary ---
:1950 Author Organization [place] Address [address] [place] [address] Care Team Providers Name Role Phone ForbesMomo Primary Care Provider Reason for Visit Reason Onset Date Comments Transplant 11/07/2017 Encounter Details Date Type Department Care Team Description 11/07/2017 Telephone [facility] Transplant Nazia Jacobson, Transplant Clinic RN [address] [place], [place] [phone] Social History Tobacco Use [...] range, repeat tac level in 1 week. HORN PLAYER TASK: Call patient with instructions per plan. Enter lab orders if needed. documented in this encounter Plan of Treatment Not on filedocumented as of this encounter Visit Diagnoses Not on filedocumented in this encounter Care Teams Special Education Resource Room Teacher Relationship Specialty Start Date End Date Momo Forbes PCP - General Family Practice 01/02/[address] [address] documented as of this encounter
--- OUTSIDE RECORDS SUMMARY | 2022-06-30 10:54 | XMS_ITS | Encounter Summary ---
:1950 Author Organization [place] Address [address] [place] [address]. [place] [address] Care Team Providers Name Role Phone Momo Forbes Primary Care Provider Encounter Details Date Type Department Care Team Description 09/26/2019 [facility] Scan, BLOOD GLUCOSE LOG Health Info Mgmt Non-Provider Srvcs [address] [place] [phone] Social History Tobacco Use Types Packs/Day [...] on filedocumented in this encounter Care Teams Zipper Ironer Relationship Specialty Start Date End Date Momo Forbes PCP - General Family Practice 01/02/14 [facility] [address] [place] [address] documented as of this encounter
--- OUTSIDE RECORDS SUMMARY | 2022-06-30 10:54 | XMS_ITS | Encounter Summary ---
:1950 Author Organization [place] Address [address] [place] [address]. [place] [address] Care Team Providers Name Role Phone Momo Forbes Primary Care Provider Encounter Details Date Type Department Care Team Description 09/25/2019 Medical Correspondence [facility] Scan, PATIENT BLOOD Health Info Mgmt Non-Provider GLUCOSE SIVAKUMAR LEMUS Srvcs [address] [place] [address] Social History Tobacco Use Types [...] on filedocumented in this encounter Care Teams Seismographer Relationship Specialty Start Date End Date Momo Forbes PCP - General Family Practice 01/02/14 [facility] [address] [place] [address] documented as of this encounter
--- OUTSIDE RECORDS SUMMARY | 2022-06-30 10:54 | XMS_ITS | Encounter Summary ---
:1950 Author Organization [place] Address [address] [place] [address] Care Team Providers Name Role Phone Momo Forbes Primary Care Provider Reason for Visit Reason Onset Date Comments Transplant 10/18/2018 post transplant sche duling Encounter Details Date Type Department Care Team Description 10/18/2018 Telephone [facility] Nazia Jacobson Transplant (post Transplant Clinic BOGDAN Hickscollection team lead scheduling) [address] [place] [phone] Social History Tobacco Use Types Packs/Day [...] another detailed message with weight managements number. ER AND TRIMMER Telephone Encounter - Maribel Plunkett - 10/18/2018 9:32 AM CST I attempted to contact pt to give him the number for weight management, as they want to talk directly to the patient when scheduling initial appointment, and reached his VM. I LVM asking him to return my call. ER AND TRIMMER documented in this encounter Plan of Treatment Not on filedocumented as of this encounter Visit Diagnoses Not on filedocumented in this encounter Care Teams Histologic Aide Relationship Specialty Start Date End Date Momo Forbes PCP - General Family Practice 01/02/14 [facility] [address] [place] [address] documented as of this encounter
--- OUTSIDE RECORDS SUMMARY | 2022-06-30 10:54 | XMS_ITS | Encounter Summary ---
:1950 Author Organization [place] Address [address] [place] [address] Care Team Providers Name Role Phone Momo Forbes Primary Care Provider Joseph Quintana MD Unavailable Encounter Details Date Type Department Care Team Description 05/15/2018 External Order Results [facility] Nurse, [facility] Transplant Clinic 9 [place] [address] Social History Tobacco Use Types [...] 54 (L) >60 LABDE SCAN (if ml/min/1.7 Swiss) 3m2 (External) GFR Estimated 44 (L) >60 [...] on filedocumented in this encounter Care Teams Equity Holder Relationship Specialty Start Date End Date Momo Forbes PCP - General Family Practice 01/02/14 [facility] [address] [place] [address] Joseph Quintana, Assigned Nephrology 03/29/21 MD Provider 717 [facility] [address] [facility] [address] [place] [address] documented as of this encounter
--- OUTSIDE RECORDS SUMMARY | 2022-06-30 10:54 | XMS_ITS | Encounter Summary ---
:1950 Author Organization [place] Address [address] [place] [address] Care Team Providers Name Role Phone Momo Forbes Primary Care Provider Reason for Visit Reason Comments RECHECK Post kid tx f/u Encounter Details Date Type Department Care Team Description 10/09/2019 Office Visit [facility] Shiva Presley MD [facility] [place] [address] [facility] [address] [place] [address] Kidney transplanted (Primary Dx); Nephrology Clinic , Kidney/Pancreas Recipient Need for influenza vaccination; [place] HTN, kidney transplant relat ed; [address] Immunosupp ression (H); SE Skin cancer screening; [place], [place]it[place] [address] Social History [...] Comments Blood Pressure 169/76 10/09/2019 2:35 PM PRECISION LENS CENTERER AND EDGER Pulse 67 10/09/2019 2:35 PM PRECISION LENS CENTERER AND EDGER Temperature - - Respiratory Rate - - Oxygen Saturation 95% 10/09/2019 2:35 PM PRECISION LENS CENTERER AND EDGER Inhaled Oxygen Concentration - - Weight 132.5 kg (292 lb 1.6 oz) 10/09/2019 2:35 PM PRECISION LENS CENTERER AND EDGER Height - - Body Mass Index 39.62 10/10/2017 2:25 PM PRECISION LENS CENTERER AND EDGER documented in this encounter Progress Notes Shiva [...] being entered into the official medical record. ISION LENS CENTERER AND EDGER documented in this encounter Nursing Notes Josseline Recinos RN - 10/09/2019 2:45 PM CST Diego Guthrie was seen today in clinic by this telegraphic typewriter operator. Medications, lab orders, lab frequency,and necessary follow up discussed with patient. Patient was provided with a copy of the current lab letter. Patient voiced understanding and agreement of education and plan. Josseline Recinos RN ISION LENS CENTERER AND EDGER Jeanette Finley CMA - 10/09/2019 2:45 PM CST Chief Complaint Patient presents with ??? RECHECK Post kid tx f/u Blood pressure (!) 169/76, pulse 67, weight 132.5 kg (292 lb 1.6 oz), SpO2 95 %. Jeanette Finley CMA ISION LENS CENTERER AND EDGER documented in this encounter Plan of Treatment [...] deficiency documented in this encounter Care Teams Director Of Extension Work Relationship Specialty Start Date End Date Momo Forbes PCP - General Family Practice 01/02/14 [facility] [address] [place] [address] documented as of this encounter
--- OUTSIDE RECORDS SUMMARY | 2022-06-30 10:54 | XMS_ITS | Encounter Summary ---
:1950 Author Organization [place] Address [facility] [place] [address] Care Team Providers Name Role [...] on filedocumented in this encounter Care Teams Refrigeration Engineer Relationship Specialty Start Date End Date Momo Forbes PCP - General Family Practice 01/02/14 [facility] [address] [place] [address] documented as of this encounter
--- OUTSIDE RECORDS SUMMARY | 2022-06-30 10:54 | XMS_ITS | Encounter Summary ---
:1950 Author Organization [place] Address [facility] [place] [address] Care Team Providers Name Role Phone Momo [...] on filedocumented in this encounter Care Teams Attorney At Law Relationship Specialty Start Date End Date Momo Forbes PCP - General Family Practice 01/02/14 [facility] [address] [place] [address] documented as of this encounter
--- OUTSIDE RECORDS SUMMARY | 2022-06-30 10:54 | XMS_ITS | Encounter Summary ---
:1950 Author Organization [place] Address [facility] [place] [address] Care Team Providers Name Role Phone Momo [...] filedocumented in this encounter Care Teams Bar Waiter/Waitress Relationship Specialty Start Date End Date Momo Forbes PCP - General Family Practice 01/02/14 [facility] [address] [place] [address] documented as of this encounter
--- OUTSIDE RECORDS SUMMARY | 2022-06-30 10:54 | XMS_ITS | Encounter Summary ---
:1950 Author Organization [place] Address [address] [place] [address] Care Team Providers Name Role Phone Forbes, Ton Primary Care Provider Reason for Visit Reason Onset Date Comments Refill Request 10/25/2018 Encounter Details Date Type Department Care Team Description 10/25/2018 Refill [facility] Joseph Quintana MD Refill Request Transplant Clinic [address] [place] [address] [address] [place], [place] [phone] [place] [address] (Wo rk) Social History Tobacco [...] Marianne Urias RN - 10/26/2018 9:04 AM ANTIQUE COLLECTOR ISSUE: Refill request for MMF 03/2019 appt [...] to call if further questions or concerns. QUE COLLECTOR documented in this encounter Plan of Treatment Not on filedocumented as of this encounter Visit Diagnoses Diagnosis Kidney transplanted Kidney replaced by transplant documented in this encounter Care Teams Fitness Attendant Relationship Specialty Start Date End Date Momo Forbes PCP - General [facility] Practice 01/02/14 [facility] [address] [place] [address] documented as of this encounter
--- OUTSIDE RECORDS SUMMARY | 2022-06-30 10:54 | XMS_ITS | Encounter Summary ---
:1950 Author Organization [place] Address [facility] [place] [address] Care Team Providers Name Role Phone Momo Forbes Primary Care Provider Encounter Details Date Type Department Care Team Description 08/18/2018 Documentation Only [facility] Josseline Recinos, Transplant Clinic RN [address] [place] [address] Social History Tobacco Use Types [...] letter updated: 08/17/18 Lab orders faxed to: [facility] [phone] (Phone) Lab orders up to date in [facility]. MAKER documented in this encounter Plan of Treatment Not on filedocumented as of this encounter Visit Diagnoses Not on filedocumented in this encounter Care Teams Television Tube Inspector Relationship Specialty Start Date End Date Momo Forbes PCP - General Family Practice 01/02/14 [facility] [address] [place], [place] [id number] documented as of this encounter
--- OUTSIDE RECORDS SUMMARY | 2022-06-30 10:54 | XMS_ITS | Encounter Summary ---
:1950 Author Organization [place] Address [address] [place] [address] Care Team Providers Name Role Phone Momo Forbes Primary Care Provider Joseph Quintana MD Unavailable Encounter Details Date Type Department Care Team Description 09/04/2018 External Order Results [facility] Nurse, [facility] Transplant Clinic [address] [place] [address] Social History Tobacco Use Types [...] 2:50 PM R esults for this DIFFERENTIAL AIR OPERATIONS MANAGER procedure are i n the results section. BASIC METABOLIC PANEL Routine 09/04/2018 2:50 PM Results for this AIR OPERATIONS MANAGER procedure are i n the results section. PROTEIN RANDOM URINE Routine 09/04/2018 2:49 PM R esults for this AIR OPERATIONS MANAGER procedure are i n the results section. documented in this encounter Results (ABNORMAL) CBC with platelets differential (09/04/2018 2:50 PM AIR OPERATIONS MANAGER) [facility] Method Time Signature WBC Count 3.8 (L) [...] Laterality Blood specimen 09/04/2018 2:50 PM (specimen) AIR OPERATIONS MANAGER Narrative JESSICA PFT - 09/06/2018 9:13 AM AIR OPERATIONS MANAGER Verified by Cassie Florian on 09/06/2018. Patient Reported LAB - BLOOD ORDERABLES Performing Organization Address City/State/ZIP Code Phon e Number [facility]ACHERY[facility] PFT LABDE SCAN (ABNORMAL) Basic metabolic panel (09/04/2018 2:50 PM AIR OPERATIONS MANAGER) Analysis Performed At Patho logist Time [...] Laterality Blood specimen 09/04/2018 2:50 PM (specimen) AIR OPERATIONS MANAGER Narrative BREEZE PFT - 09/06/2018 9:13 AM AIR OPERATIONS MANAGER Verified by Cassie Florian on 09/06/2018. Patient Reported LAB - BLOOD ORDERABLES Performing Organization Address City/State/ZIP Code Phon e Number [facility] PFT LABDE SCAN (ABNORMAL) Protein random urine with Creat Ratio (09/04/2018 2:49 PM AIR OPERATIONS MANAGER) P athologist Signature Protein Random 72 (H) 1 - 14 LABDE SCAN Urine mg/dL (External) Creatinine 104.0 63.0 - LABDE SCAN Urine mg/dL 166.0 (External) mg/dL Protein Total 0.7 (H) <0.2 LABDE SCAN Ur per Cr (External) Specimen (Source) Anatomical Collection Method Collection Time Re ceived Time Location / / Volume Laterality Urine specimen 09/04/2018 2:49 PM (specimen) AIR OPERATIONS MANAGER Narrative [facility] PFT - 09/06/2018 9:13 AM AIR OPERATIONS MANAGER Verified by Cassie Florian on 09/06/2018. Patient Reported LAB - URINE ORDERABLES Performing Organization Address City/State/ZIP Code Phon e Number [facility]REE[facility] PFT LABDE SCAN documented in this encounter Visit Diagnoses Not on filedocumented in this encounter Care Teams Dam Operator Relationship Specialty Start Date End Date Momo Forbes PCP - General Family Practice 01/02/14 [facility] [address] [place] [address] Joseph Quintana, Assigned Nephrology 03/29/21 MD Provider [address] [place] [address] [address] [place] [address] documented as of this encounter
--- OUTSIDE RECORDS SUMMARY | 2022-06-30 10:54 | XMS_ITS | Encounter Summary ---
:1950 Author Organization [place] Address [address] [place] [address] Care Team Providers Name Role Phone Momo Forbes Primary Care Provider Reason for Visit Reason Comments RECHECK annual Follow up Kidney TX Encounter Details Date Type Department Care Team Description 10/17/2018 Office Visit [facility] Shiva Presley MD [facility] [place] [address] [facility] [address] [place], [place] [address] Type 2 diabetes mellitus with other spec ified complication, with long-term current use of insulin (H) (Primary Dx); Nephrology Clinic [facility] Kidney/Pancreas Recipient Kidney replaced by transplant; [place] Aftercare following organ tr ansplant; [address] [facility] Immunosupp ression (H); SE HTN, kidney transplant relat ed; [place], [place] Severe obesi ty in adult, [...] Comments Blood Pressure 162/77 10/17/2018 1:54 PM HAND EDGER Pulse 60 10/17/2018 1:54 PM HAND EDGER Temperature 36.5 ??C (97.7 ??F) 10/17/2018 1:54 PM HAND EDGER Respiratory Rate - - Oxygen Saturation 94% 10/17/2018 1:54 PM HAND EDGER Inhaled Oxygen Concentration - - Weight 133.7 kg (294 lb 12.8 oz) 10/17/2018 1:54 PM HAND EDGER Height - - Body Mass Index 39.98 10/10/2017 2:25 PM HAND EDGER documented in this encounter Progress Notes Joseph [...] then 50%0. Also offered to refer to pillowcase sewer. # Mineral Bone Disorder: - Secondary renal [...] PREVIOUSLY REPORTED 1999 MPACID 1.39 MPAG 80.2 EDGER documented in this encounter Nursing Notes Martina [...] kg (294 lb 12.8 oz). Martina Boyle EDGER documented in this encounter Plan of [...] >40 documented in this encounter Care Teams Peritoneal Dialysis Registered Nurse Relationship Specialty Start Date End Date Momo Forbes PCP - General Family Practice 01/02/14 [facility] [address] [place] [address] documented as of this encounter
--- OUTSIDE RECORDS SUMMARY | 2022-06-30 10:54 | XMS_ITS | Encounter Summary ---
:1950 Author Organization [place] Address [address] [place] [address] Care Team Providers Name Role Phone Momo Forbes Primary Care Provider Reason for Visit Reason Onset Date Comments Refill Request 12/19/2017 Encounter Details Date Type Department Care Team Description 12/19/2017 Refill [facility] Joseph Quintana MD Refill Request Transplant Clinic [address] [place] [address] [address] [place] [phone] [place] [address] (Wo rk) Social History Tobacco [...] Fill Date: 11/14/17 Quantity: 60 Janelle Flowers [facility] [phone] documented in this encounter Plan of Treatment Not on filedocumented as of this encounter Visit Diagnoses Diagnosis Kidney transplanted Kidney replaced by transplant documented in this encounter Care Teams Technical Adjuster Relationship Specialty Start Date End Date Momo Forbes PCP - General Family Practice 01/02/14 [facility] [address] [place] [address] documented as of this encounter
--- OUTSIDE RECORDS SUMMARY | 2022-06-30 10:54 | XMS_ITS | Encounter Summary ---
:1950 Author Organization [place] Address [facility] [place] [address] Care Team Providers Name Role Phone Momo Forbes Primary Care Provider Reason for Visit Reason Onset Date Comments Refill Request 12/22/2018 prograf, mycophenola te (PT IS OUT OF MEDS) Encounter Details Date Type Department Care Team Description 12/22/2018 Refill [facility] Joseph Quintana Refsid R alenest (prograf, Transplant Clinic MD Herminio mycophenolate (PT IS OUT [address] [facility] [address] [facility] SE OF MEDS)) [facility] [address] [facility] [address]87 [address] [place], [place] [phone] ( rk) Social History Tobacco Use Types [...] transplant documented in this encounter Care Teams Lining Setter Relationship Specialty Start Date End Date Momo Forbes PCP - General Family Practice 01/02/14 [facility] [address] [place] [address] documented as of this encounter
--- OUTSIDE RECORDS SUMMARY | 2022-06-30 10:54 | XMS_ITS | Encounter Summary ---
:1950 Author Organization [place] Address [facility] [place] [address] Care Team Providers Name Role Phone Momo Forbes Primary Care Provider Reason for Visit Reason Onset Date Comments Erroneous encounter-disregard 05/17/2018 Encounter Details Date Type Department Care Team Description 05/17/2018 Telephone [facility] Etcheverry, Erroneous Transplant Clinic BOGDAN Lopes encounter-disregard [address] [place] [address] Social History Tobacco Use Types Packs/Day [...] in this encounter Care Teams Hot Metal Mixer Operator Relationship Specialty Start Date End Date Momo Forbes PCP - General Family Practice 01/02/14 [facility] [address] [place] [address] documented as of this encounter
--- OUTSIDE RECORDS SUMMARY | 2022-06-30 10:54 | XMS_ITS | Encounter Summary ---
:1950 Author Organization [place] Address [address] [place] [address] Care Team Providers Name Role Phone Momo Forbes Primary Care Provider Encounter Details Date Type Department Care Team Description 05/16/2019 Orders Only [facility] Loy Morales, Aft ercare following organ transplant; [facility] Kidney replaced by transplant; Laboratory [address] [facility] Encounter for long-term curr ent use of medication [address] [place] [address] [phone] (Wo rk) Social History Tobacco Use Types [...] (ABNORMAL) Tacrolimus level (05/16/2019 3:43 PM CDT) [facility] Method Time Signature Tacrolimus Last 05/1605/18/2019 [facility] 1230AM 11:28 AM CDT [facility] Tacrolimus 4.6 (L) 5.0 - 05/18/2019 [facility] 15.0 ug/L 4:11 PM CDT [facility] Comment: Tacrolimus Reference [...] its performa nce characteristics determined by the [facility], [...] Phon e Number [facility] [address] [place], [place] [phone] [place] [address] documented in this encounter Visit Diagnoses Diagnosis Aftercare following organ transplant Kidney replaced by transplant Encounter for long-term current use of m edication documented in this encounter Care Teams Pole Classifier Relationship Specialty Start Date End Date Momo Forbes PCP - General Family Practice 01/02/14 [facility] [address] [place] [address] documented as of this encounter
--- OUTSIDE RECORDS SUMMARY | 2022-06-30 10:54 | XMS_ITS | Encounter Summary ---
:1950 Author Organization [place] Address [address] [place] [address] Care Team Providers Name Role Phone Momo Forbes Primary Care Provider Reason for Visit Reason Onset Date Comments Kidney Transplant 05/20/2019 Encounter Details Date Type Department Care Team Description 05/20/2019 Telephone [facility] Estefania Nguyen Transplant Transplant Clinic Amanda Fletcher RN [address] [place] [address] Social History Tobacco Use Types Packs/Day [...] not charted as 12 hour trough. ?? Plan/OPEN HEARTH FURNACE OPERATOR HELPER task: ?? Please confirm timing of lab draw. If this was not a 12 hour level, please repeat labs in May and ensure 12 hour trough level with lab draw. Enter lab orders if needed Telephone Encounter - Amanda Nguyen RN - 05/20/2019 5:38 PM CDT Issue: Tac 4.6 - however this is not charted as 12 hour trough. Plan/OPEN HEARTH FURNACE OPERATOR HELPER task: Please confirm timing of lab draw. If this was not a 12 hour level, please repeat labs in May and ensure 12 hour trough level with lab draw. Enter lab orders if needed. documented in this encounter Plan of Treatment Not on filedocumented as of this encounter Visit Diagnoses Not on filedocumented in this encounter Care Teams Procurement Officer Relationship Specialty Start Date End Date Momo Forbes PCP - General Family Practice 01/02/14 [facility] [address] [place] [address] documented as of this encounter
--- OUTSIDE RECORDS SUMMARY | 2022-06-30 10:54 | XMS_ITS | Encounter Summary ---
:1950 Author Organization [place] Address [facility] [address] Care Team Providers Name Role Phone Momo Forbes Primary Care Provider Reason for Visit Reason Onset Date Comments Transplant Pharmacy Medication Review 01/19/2018 Encounter Details Date Type Department Care Team Description 01/19/2018 Telephone [facility] Beny Staton, Transplant Pharmacy [address] [facility] [place] [address] [facility] [phone] PHARMACY [place], [place] [address] Social History Tobacco Use Types Packs/Day Years [...] on filedocumented in this encounter Care Teams Kosher Dietary Service Supervisor Relationship Specialty Start Date End Date Momo Forbes PCP - General Family Practice 01/02/14 [facility] [address] [place] [address] documented as of this encounter
--- OUTSIDE RECORDS SUMMARY | 2022-06-30 10:54 | XMS_ITS | Encounter Summary ---
:1950 Author Organization [place] Address [address] [place] [address] Care Team Providers Name Role Phone Momo Forbes Primary Care Provider Reason for Visit Reason Onset Date Comments Transplant Pharmacy Medication Review 01/10/2019 Encounter Details Date Type Department Care Team Description 01/10/2019 Telephone [facility] Meghan Mccormack Geovanni Transplant Pharmacy [address] [facility] [place] [address] PHARMACY [phone] [place] [address] (Wo rk) Social History Tobacco Use Types [...] filedocumented in this encounter Care Teams Pipe Fitter Helper Relationship Specialty Start Date End Date Momo Forbes PCP - General Family Practice 01/02/14 [facility] [address] [place] [address] documented as of this encounter
--- OUTSIDE RECORDS SUMMARY | 2022-06-30 10:54 | XMS_ITS | Encounter Summary ---
:1950 Author Organization [place] Address [address] [place] [address] Care Team Providers Name Role Phone Momo Forbes Primary Care Provider Reason for Visit Reason Onset Date Comments Transplant Lab 05/16/2019 Encounter Details Date Type Department Care Team Description 05/16/2019 Telephone [facility] Sudhir Fields Trans plant Lab Transplant Clinic Amanda Fletcher RN [address] [place] [address] [phone] Social History Tobacco Use Types Packs/Day [...] CDT Provider Call: Transplant Lab/Orders Route to ENGINEERING ASSOCIATE Post Transplant Days: 1928 When patient is less than 60 days post-transplant, route high priority Reason for Call: updated lab order faxed Liver patients reporting abnormal lab results: Route to RN and Page Document lab facility information when provider is calling about annual lab orders. Delete facility wildcards when not needed. Facility Name: [facility] Facility Location: [place], [place] Outside Facility Callback needed? If needed documented in this encounter Plan of Treatment Not on filedocumented as of this encounter Visit Diagnoses Diagnosis Kidney replaced by transplant - Primary Aftercare following organ transplant Encounter for long-term current use of m edication documented in this encounter Care Teams Show Horse Driver Relationship Specialty Start Date End Date Momo Forbes PCP - General Family Practice 01/02/14 [facility] [address] [place] [address] documented as of this encounter
--- OUTSIDE RECORDS SUMMARY | 2022-06-30 10:54 | XMS_ITS | Encounter Summary ---
:1950 Author Organization [place] Address [facility] [place] [address] Care Team Providers Name Role Phone Momo Forbes Primary Care Provider Encounter Details Date Type Department Care Team Description 11/10/2017 [facility] [place] [address] 5-[address]00 [phone] Social History Tobacco Use Types Packs/Day Years [...] disease documented in this encounter Care Teams Invoice Clerk Relationship Specialty Start Date End Date Momo Forbes PCP - General Family Practice 01/02/14 [facility] [address] [place] [address] documented as of this encounter
--- OUTSIDE RECORDS SUMMARY | 2022-06-30 10:54 | XMS_ITS | Encounter Summary ---
:1950 Author Organization [place] Address [facility] [place] [address] Care Team Providers Name Role Phone Momo Forbes Primary Care Provider Reason for Visit Reason Onset Date Comments Refill Request 01/17/2019 Encounter Details Date Type Department Care Team Description 01/17/[address] [facility] Joseph Quintana MD Refill Request Transplant Clinic [address] [place] [address] [address] [place], [place] [phone] [place], [place] [phone] (Wo rk) Social History Tobacco Use Types [...] this encounter Care Teams Welding Machine Operator Resistance Relationship Specialty Start Date End Date Momo Forbes PCP - General Family Practice 01/02/14 [facility] [address] [place] [address] documented as of this encounter
--- OUTSIDE RECORDS SUMMARY | 2022-06-30 10:55 | XMS_ITS | Encounter Summary ---
:1950 Author Organization [place] Address [address] [place] [address] Care Team Providers Name Role Phone Momo Forbes Primary Care Provider Reason for Visit Reason Comments RECHECK Kidney tx follow up Encounter Details Date Type Department Care Team Description 10/10/2017 Office Visit [facility] Shiva Presley Sta tus post kidney transplant (Primary Dx); Nephrology Clinic Immunosuppression (H); [facility] Type 2 diabetes mellitus wit h stage 3 chronic kidney disease, with long-term current use of insulin (H); [address] [place] [address] Benign essential hypertension; [address] Hyperlipidemia, unspecified hyperlipidemia type; [place], [place] RANJAN 220 Skin cancer screening [id number] [place] [address] (Wo rk) Social History Tobacco [...] Comments Blood Pressure 153/74 10/10/2017 2:25 PM FORKLIFT TRUCK MECHANIC Pulse 55 10/10/2017 2:25 PM FORKLIFT TRUCK MECHANIC Temperature 36.7 ??C (98.1 ??F) 10/10/2017 2:25 PM FORKLIFT TRUCK MECHANIC Respiratory Rate - - Oxygen Saturation 98% 10/10/2017 2:25 PM FORKLIFT TRUCK MECHANIC Inhaled Oxygen Concentration - - Weight 135.4 kg (298 lb 6.4 oz) 10/10/2017 2:25 PM FORKLIFT TRUCK MECHANIC Height 182.9 cm (6') 10/10/2017 2:25 PM FORKLIFT TRUCK MECHANIC Body Mass Index 40.47 10/10/2017 2:25 PM FORKLIFT TRUCK MECHANIC documented in this encounter Progress Notes Shiva [...] is well as a referral to his electrical installer for monitoring for any skin cancers. 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 LIFT TRUCK MECHANIC documented in this encounter Nursing Notes Marcelina [...] oz). Medication Reconciliation: amparo ZURITA CMA . LIFT TRUCK MECHANIC documented in this encounter Plan of [...] skin documented in this encounter Care Teams Nondestructive Tester Relationship Specialty Start Date End Date Momo Forbes PCP - General Family Practice 01/02/14 [facility] [address] [place] [address] documented as of this encounter
--- OUTSIDE RECORDS SUMMARY | 2022-06-30 10:55 | XMS_ITS | Encounter Summary ---
:1950 Author Organization [place] Address [facility] [place] [address] Care Team Providers Name Role Phone Momo Forbes Primary Care Provider Reason for Visit Reason Comments RECHECK Kidney follow up Encounter Details Date Type Department Care Team Description 10/25/2016 Office Visit [facility] Anita Joshi MD Renal hypertension, Nephrology Clinic [address] [place] [address] 1-4 or [place] [address] unspecified chronic [address] [place], [place] [address] (Primary Dx) [address] [phone] Social History Tobacco Use Types Packs/Day Years [...] Comments Blood Pressure 168/83 10/25/2016 4:39 PM MEDICAL IMAGING DIRECTOR Pulse 55 10/25/2016 4:39 PM MEDICAL IMAGING DIRECTOR Temperature 36.8 ??C (98.3 ??F) 10/25/2016 4:39 PM MEDICAL IMAGING DIRECTOR Respiratory Rate 18 10/25/2016 4:39 PM MEDICAL IMAGING DIRECTOR Oxygen Saturation - - Inhaled Oxygen Concentration - - Weight 138.2 kg (304 lb 9.6 oz) 10/25/2016 4:39 PM MEDICAL IMAGING DIRECTOR Height 182.9 cm (6') 10/25/2016 4:39 PM MEDICAL IMAGING DIRECTOR Body Mass Index 41.31 10/25/2016 4:39 PM MEDICAL IMAGING DIRECTOR documented in this encounter Progress Notes Chucho [...] (304 lb 9.6 oz). Medication Reconciliation: complete CAL IMAGING DIRECTOR documented in this encounter Plan of Treatment Not on filedocumented as of this encounter Visit Diagnoses Diagnosis Renal hypertension, stage 1-4 or unspeci fied chronic kidney disease - Primary documented in this encounter Care Teams Quality Control Microbiology Supervisor Relationship Specialty Start Date End Date Momo Forbes PCP - General Family Practice 01/02/14 [facility] [address] [place] [address] documented as of this encounter
--- OUTSIDE RECORDS SUMMARY | 2022-06-30 10:55 | XMS_ITS | Encounter Summary ---
:1950 Author Organization [place] Address [address] [facility] [place] [address] Care Team Providers Name Role Phone Momo Forbes Primary Care Provider Reason for Visit Reason Onset Date Comments Pre Visit Planning - Unable To Reach 10/14/2016 Encounter Details Date Type Department Care Team Description 10/14/2016 Telephone [facility] Anita Joshi MD Pre Visit Planning - Nephrology Clinic [address] [place] [address] [place] ble To Reach [address] [address] [phone] Social History Tobacco Use Types Packs/Day Years Used Date Smoking Tobacco: Former Cigars Quit : 08/22/2006 Smokeless Tobacco: Never Alcohol Use Standard Drinks/Week Comments Yes 0 (1 standard drink = 0.6 oz pure alcoho l) occasional drink. Sex Assigned at Date Recorded Not on file documented as of this encounter Miscellaneous Notes Telephone Encounter - Monroe Zurita OPERATING ROOM TECH - 10/14/2016 10:56 AM CST Ezekiel, this is office from Clinic [facility] at the [facility]. We are calling to remind you of your upcoming Nephrology appointment on 10/25/16 at 440pm. Please arrive about 1 hours prior to your appointment time for labs. Also, please bring an updated medication list or your labeled medication bottles with you to your appointment. If you have any questions or would like to cancel or reschedule your appointment, please call us at [phone]. You are welcome to have your labs done up to a week before your appointment at any [facility] or [facility] facility. If you have your labs completed before your appointment, please still come 30 minutes early for check-in MONROE ZURITA CMA S REPRESENTATIVE MEATS documented in this encounter Plan of Treatment Not on filedocumented as of this encounter Visit Diagnoses Not on filedocumented in this encounter Care Teams Gig Tender Relationship Specialty Start Date End Date Momo Forbes PCP - General Family Practice 01/02/14 [facility] [address] [place] [address] documented as of this encounter
--- OUTSIDE RECORDS SUMMARY | 2022-06-30 10:55 | XMS_ITS | Encounter Summary ---
:1950 Author Organization [place] Address [address] [place] [address] Care Team Providers Name Role Phone Momo Forbes Primary Care Provider Reason for Visit Reason Onset Date Comments Appointment 10/05/2017 Encounter Details Date Type Department Care Team Description 10/05/2017 Telephone [facility] Shiva Presley MD Appointment Nephrology Clinic [facility] [address] [place] [address] [phone] Social History Tobacco Use Types Packs/Day Years [...] concernsahead of appointment. Romi Rodriguez RN ON PULLER documented in this encounter Plan of Treatment Not on filedocumented as of this encounter Visit Diagnoses Not on filedocumented in this encounter Care Teams Log Hooker Relationship Specialty Start Date End Date Momo Forbes PCP - General Family Practice 01/02/14 [facility] [address] [place] [address] documented as of this encounter
--- OUTSIDE RECORDS SUMMARY | 2022-06-30 10:55 | XMS_ITS | Encounter Summary ---
:1950 Author Organization [place] Address [facility] [place] [address] Care Team Providers Name Role Phone Momo Forbes Primary Care Provider Reason for Visit Reason Onset Date Comments Transplant 08/31/2017 Encounter Details Date Type Department Care Team Description 08/31/2017 Telephone [facility] Transplant Amanda Garduno Transplant Clinic M, RN [address] [place] [address] [phone] Social History Tobacco Use Types Packs/Day [...] on filedocumented in this encounter Care Teams Fisher Pot Relationship Specialty Start Date End Date Momo Forbes PCP - General Family Practice 01/02/14 [facility] [address] [place] [address] documented as of this encounter
--- OUTSIDE RECORDS SUMMARY | 2022-06-30 10:55 | XMS_ITS | Encounter Summary ---
:1950 Author Organization [place] Address [address] [place] [address] Care Team Providers Name Role Phone Momo Forbes Primary Care Provider Reason for Visit Reason Onset Date Comments Transplant 09/12/2017 Encounter Details Date Type Department Care Team Description 09/12/2017 Telephone [facility] Transplant Nazia Jacobson, Transplant Clinic RN [address] [place], [place] [phone] Social History Tobacco Use [...] updated standing lab order and faxed to [facility] lab. K PRESS OPERATOR Telephone Encounter - Nazia Jacobson, RN - 09/12/2017 8:36 AM BLOCK PRESS OPERATOR ISSUE: Hyperglycemia (blood sugar 300-600s w/ last 2 blood draws) Overdue for transplant labs TOOL RADIAL DRILL PRESS SET UP OPERATOR TASK: Call Diego Guthrie and ask him who is managing his diabetes? Does he have an car wash attendant automatic? He needs to have better blood sugar control, elevated blood sugars can cause damage to his kidney. Remind him that he should be getting transplant labs done monthly. (3 years out from kidney transplant) Send updated lab letter. K PRESS OPERATOR documented in this encounter Plan of Treatment Not on filedocumented as of this encounter Visit Diagnoses Not on filedocumented in this encounter Care Teams Anesthesiologist Relationship Specialty Start Date End Date Momo Forbes PCP - General Family Practice 01/02/14 [facility] [address] [place] [address] documented as of this encounter
--- OUTSIDE RECORDS SUMMARY | 2022-06-30 10:55 | XMS_ITS | Encounter Summary ---
:1950 Author Organization [place] Address [facility] [place] [address] Care Team Providers Name Role Phone Momo Forbes Primary Care Provider Reason for Visit Reason Onset Date Comments Refill Request 10/10/2017 mycophenolae Encounter Details Date Type Department Care Team Description 10/10/2017 Refill M [facility] Joseph Quintana Refill R equest Transplant Clinic MD Herminio (mycophenolae ) [address] [place] [phone] [place] [address] (Wo rk) Social History [...] Fill Date: 09/01/17 Quantity: 180 Janelle Flowers [facility] [phone] ERY ASSISTANT documented in this encounter Plan of Treatment Not on filedocumented as of this encounter Visit Diagnoses Diagnosis Kidney transplanted Kidney replaced by transplant documented in this encounter Care Teams Sap Analyst Relationship Specialty Start Date End Date Momo Forbes PCP - General Family Practice 01/02/14 [facility] [address] [place] [address] documented as of this encounter
--- OUTSIDE RECORDS SUMMARY | 2022-06-30 10:55 | XMS_ITS | Encounter Summary ---
:1950 Author Organization [place] Address [address] [place] [address] Care Team Providers Name Role Phone Forbes, Momo He Primary Care Provider Encounter Details Date Type Department Care Team Description 05/30/2017 Hospital Encounter [facility] [place] Richey, [facility] [address] [address] [phone] (Wo rk) Social History Tobacco Use Types [...] filedocumented in this encounter Care Teams Machine Ceramic Coater Relationship Specialty Start Date End Date Momo Forbes PCP - General Family Practice 01/02/14 [facility] [address] [place] [address] documented as of this encounter
--- OUTSIDE RECORDS SUMMARY | 2022-06-30 10:55 | XMS_ITS | Encounter Summary ---
:1950 Author Organization [place] Address [facility] [place] [address] Care Team Providers Name Role Phone Momo Forbes Primary Care Provider Reason for Visit Reason Onset Date Comments Refill Request 09/28/2016 Encounter Details Date Type Department Care Team Description 09/28/2016 Refill [facility] Anita Joshi MD Refill Request Nephrology Clinic [address] [place] [address] [place] [address] [phone] Social History Tobacco Use Types Packs/Day Years [...] 1:51 PM CST Last Office Visit with Paper Bag Press Operator: March 2016. Medication refilled per Nephrology Clinic protocol. Janes Jauregui RN BURNER documented in this encounter Plan of Treatment Not on filedocumented as of this encounter Visit Diagnoses Diagnosis Reactive depression - Primary Dysthymic disorder documented in this encounter Care Teams Fitness Management Director Relationship Specialty Start Date End Date Momo Forbes PCP - General Family Practice 01/02/[address] [place] [address] documented as of this encounter
--- OUTSIDE RECORDS SUMMARY | 2022-06-30 10:55 | XMS_ITS | Encounter Summary ---
:1950 Author Organization [place] Address [address] [place] [address] Care Team Providers Name Role Phone Momo Forbes Primary Care Provider Encounter Details Date Type Department Care Team Description 10/25/2016 [facility] Only [facility] Thrombocytopenia (H); [address] [facility] SE Aftercare following organ tr ansplant; 1st Floor Kidney replaced by transplan t; [place], [place] Encounter fo r long-term current use [...] Thrombocytopenia (H) Resu lts for this PM METAL DRESSER procedure are i n the results section. BASIC METABOLIC Routine 10/25/2016 3:54 Aftercare following Re sults for this PANEL PM METAL DRESSER organ transplant procedure are in Kidney replaced by the [facility] ts transplant section. Encounter for long-term current use of medication CBC WITH PLATELETS Routine 10/25/2016 3:54 Aftercare following Results for this PM METAL DRESSER organ transplant procedure are in Kidney replaced by the [facility] ts transplant section. Encounter for long-term current use of medication PROTEIN RANDOM Routine 10/25/2016 3:52 Aftercare following Res ults for this URINE PM METAL DRESSER organ transplant procedure are in Kidney replaced by the [facility] ts transplant section. Encounter for long-term current use of medication CREATININE URINE Routine 10/25/2016 3:52 Thrombocytopenia (H) Results for this CALCULATION ONLY PM METAL DRESSER procedure a re in (LAB ONLY) the results section. documented in this encounter Results (ABNORMAL) Basic metabolic panel (10/25/2016 3:54 PM METAL DRESSER) Patholo gist Method Time Signature Sodium 142 133 - 144 [facility] mmol/L [facility] Potassium 4.2 3.4 - 5.3 [facility] mmol/L [facility] Chloride 108 94 - 109 [facility] mmol/L [facility] Carbon Dioxide 28 20 - 32 [facility] mmol/L [facility] Anion Gap 7 3 - 14 [facility] mmol/L [facility] Glucose 120 (H) 70 - 99 [facility] mg/dL [facility] Urea Nitrogen 19 7 - 30 [facility] mg/dL [facility] Creatinine 1.39 (H) 0.66 - [facility] 1.25 mg/dL [facility] GFR Estimate 51 (L) >60 [facility] mL/min/1.7 [place] m2 [facility] Comment: Non GFR Calc GFR Estimate If Black 62 >60 mL/min/1.7m2 [facility] Comment: GFR Calc Calcium 9.4 8.5 - 10.1 mg/dL [facility] Specimen Anatomical Collection Method Collection Time Receive d Time (Source) Location / / Volume Laterality Blood specimen 10/25/2016 3:54 PM 017 3:55 (specimen) METAL DRESSER PM METAL DRESSER Chucho Joshi MD LAB - BLOOD ORDERABLES Performing Organization Address City/State/ZIP Code Phon e Number [address] [address] [facility] (ABNORMAL) CBC with platelets (10/25/2016 3:54 PM METAL DRESSER) Analysis Performed At Patho logist Time Signature WBC 5.1 4.0 - 11.0 [facility] 10e9/L [facility] RBC Count 5.50 4.4 - 5.9 [facility] 10e12/L [facility] Hemoglobin 15.5 13.3 - [facility] 17.7 g/dL [facility] Hematocrit 46.0 40.0 - [facility] 53.0 % [facility] MCV 84 78 - 100 [facility] fl [facility] MCH 28.2 26.5 - [facility] 33.0 pg [facility] MCHC 33.7 31.5 - [facility] 36.5 g/dL [facility] RDW 14.1 10.0 - [facility] 15.0 % [facility] Platelet Count 124 (L) 150 - 450 [facility] 10e9/L [facility] Specimen Anatomical Collection Method Collection Time Receive d Time (Source) Location / / Volume Laterality Blood specimen 10/25/2016 3:54 PM 017 3:55 (specimen) METAL DRESSER PM METAL DRESSER Chucho Joshi MD LAB - BLOOD ORDERABLES Performing Organization Address City/[facility]/ZIP Code Phon e Number [address] [address] [facility] Folate RBC (10/25/2016 3:54 PM METAL DRESSER) athologist Signature HCT Within 46.0 % [facility] Past 24h [facility] Folate RBC 663 ng/mL [facility] Comment: Reference range: >=366 (Note) Performed by [facility], [address] [place] [id number] [email or web address], Geoff Reed MD, Lab. Director Specimen Anatomical Collection Method Collection Time Receive d Time (Source) Location / / Volume Laterality Blood specimen 10/25/2016 3:54 PM 017 3:55 (specimen) METAL DRESSER PM METAL DRESSER Chucho Joshi MD LAB - BLOOD ORDERABLES Performing Organization Address City/State/ZIP Code Phon e Number [address] [address] [facility] Creatinine urine calculation only (10/25/2016 3:52 PM METAL DRESSER) P athologist Signature Creatinine 152 mg/dL [facility] Specimen Anatomical Collection Method Collection Time Receive d Time (Source) Location / / Volume Laterality 10/25/2016 3:52 PM 7 4:12 METAL DRESSER PM METAL DRESSER Chucho Joshi MD LAB - URINE ORDERABLES Performing Organization Address City/State/ZIP Code Phon e Number M [facility] [address] [place] [address] [facility] [address] [place] [address], [place] [phone] (ABNORMAL) Protein random urine (10/25/2016 3:52 PM METAL DRESSER) Analysis Performed At Patho logist Time Signature Protein Random 0.48 g/L [place] Urine [facility] Protein Total 0.31 (H) 0 - 0.2 [place] Urine g/gr g/g Cr [facility] Specimen Anatomical Collection Method Collection Time Receive d Time (Source) Location / / Volume Laterality Urine specimen 10/25/2016 3:52 PM 017 4:12 (specimen) METAL DRESSER PM METAL DRESSER Chucho Joshi MD LAB - URINE ORDERABLES Performing Organization Address City/State/ZIP Code Phon e Number [facility] [address] [address] [facility] [address] [place] [address], [place] [phone] documented in this encounter Visit Diagnoses Diagnosis Thrombocytopenia (H) Thrombocytopenia, unspecified Aftercare following organ transplant Kidney replaced by transplant Encounter for long-term current use of m edication documented in this encounter Care Teams Funeral Service Practitioner/Embalmer Relationship Specialty Start Date End Date Momo Forbes PCP - General Family Practice 01/02/14 [facility] [address] [place] [address] documented as of this encounter
--- OUTSIDE RECORDS SUMMARY | 2022-06-30 10:55 | XMS_ITS | Encounter Summary ---
:1950 Author Organization [place] Address [facility] [place] [address] Care Team Providers Name Role Phone Momo Forbes Primary Care Provider Reason for Visit Reason Onset Date Comments Refill Request 08/31/2017 mycophenolate Encounter Details Date Type Department Care Team Description 08/31/2017 Refill M [facility] Mariano, Joseph Refill R equest Transplant Clinic MD Herminio (mycophenolate) [address] [place] [address] [phone] [place] [address] (Wo rk) Social History Tobacco [...] transplant documented in this encounter Care Teams Dynamometer Mechanic Relationship Specialty Start Date End Date Momo Forbes PCP - General Family Practice 01/02/14 [facility] [address] [place], [place] [id number] documented as of this encounter
--- OUTSIDE RECORDS SUMMARY | 2022-06-30 10:55 | XMS_ITS | Encounter Summary ---
:1950 Author Organization [place] Address [address] [place] [address] Care Team Providers Name Role Phone Momo Forbes Primary Care Provider Joseph Quintana MD Unavailable Encounter Details Date Type Department Care Team Description 05/03/2016 External Order Results [facility] Nurse, [facility] Transplant Clinic [address] [place] [address] Social History Tobacco Use Types [...] on filedocumented in this encounter Care Teams Wheel Alignment Mechanic Relationship Specialty Start Date End Date Momo Forbes PCP - General Family Practice 01/02/14 [facility] [address] [place] [address] Joseph Quintana, Assigned Nephrology 03/29/21 MD Provider 7 [facility] [address] [facility] [address] [place] [address] documented as of this encounter
--- OUTSIDE RECORDS SUMMARY | 2022-06-30 10:55 | XMS_ITS | Encounter Summary ---
:1950 Author Organization [place] Address [facility] [place] [address] Care Team Providers Name Role Phone Momo Forbes Primary Care Provider Reason for Visit Reason Onset Date Comments Refill Request 10/11/2017 Encounter Details Date Type Department Care Team Description 10/11/2017 Refill [facility] Transplant Debbie Calderon LPN Refill Request Clinic [address] [place] [address] [phone] Social History Tobacco Use Types Packs/Day [...] documented in this encounter Care Teams Special Collections Librarian Relationship Specialty Start Date End Date Momo Forbes PCP - General Family Practice 01/02/14 [facility] [address] [place] [address] documented as of this encounter
--- OUTSIDE RECORDS SUMMARY | 2022-06-30 10:55 | XMS_ITS | Encounter Summary ---
:1950 Author Organization [place] Address [facility] [place] [address] Care Team Providers Name Role Phone Momo Forbes Primary Care Provider Reason for Visit Reason Onset Date Comments Transplant 12/02/2016 refill Encounter Details Date Type Department Care Team Description 12/02/2016 Refill [facility] Anita Joshi MD Transplant (refill) Nephrology Clinic [address] [place] [address] (Wo rk) [phone] Social History Tobacco Use Types Packs/Day Years [...] transplant documented in this encounter Care Teams Paper Folder Relationship Specialty Start Date End Date Momo Forbes PCP - General Family Practice 01/02/14 [facility] [address] [place] [address] documented as of this encounter
--- OUTSIDE RECORDS SUMMARY | 2022-06-30 10:55 | XMS_ITS | Encounter Summary ---
:1950 Author Organization [place] Address [facility] [place] [address] Care Team Providers Name Role Phone Momo Forbes Primary Care Provider Reason for Visit Reason Onset Date Comments Transplant 04/20/2016 refill Encounter Details Date Type Department Care Team Description 04/20/2016 Refill [facility] Joseph Quintana, Transplant (refill) Transplant Clinic [address] [place] [phone] [place], [place] [phone] (Wo rk) Social History Tobacco Use Types [...] transplant documented in this encounter Care Teams Colorman Relationship Specialty Start Date End Date Momo Forbes PCP - General Family Practice 01/02/14 [facility] [address] [place] [address] documented as of this encounter
--- OUTSIDE RECORDS SUMMARY | 2022-06-30 10:55 | XMS_ITS | Encounter Summary ---
:1950 Author Organization [place] Address [address] [place] [address] Care Team Providers Name Role Phone Momo Forbes Primary Care Provider Encounter Details Date Type Department Care Team Description 07/15/[address] [facility] Loy Morales Kid olivia replaced by [facility] MD transplant Laboratory 420 [facility] 500 [facility] 609 [place] [phone] (Wo rk) Social History Tobacco Use Types [...] by Results for this MASS SPECTROMETRY AM DUST MIXER transplant procedure are in the results section. documented in this encounter Results (ABNORMAL) Tacrolimus level (07/15/2017 10:[address] [facility]) [facility] Method Time Signature Tacrolimus Last 0000 07/19/2017 [facility] Dose 07/15/17 10:48 AM [facility] Tacrolimus 4.4 (L) 5.0 - 07/19/2017 [facility] Level 15.0 ug/L 2:38 PM [facility] Comment: Tacrolimus Reference [...] Blood specimen 07/15/2017 10:48 7 (specimen) AM DUST MIXER 10:47 AM DUST MIXER Orlando Richey MD LAB - BLOOD ORDERABLES Performing Organization Address City/State/ZIP Code Phon e Number [facility] [place] [facility] [address] [address] [facility] 500 [place] [address] [facility] documented in this encounter Visit Diagnoses Diagnosis Kidney replaced by transplant documented in this encounter Care Teams Pressure Vessel Inspector Relationship Specialty Start Date End Date Momo Forbes PCP - General Family Practice 01/02/14 [facility] 1999 [place] [address] documented as of this encounter
--- OUTSIDE RECORDS SUMMARY | 2022-06-30 10:55 | XMS_ITS | Encounter Summary ---
:1950 Author Organization [place] Address [facility]0 [facility] [place] [address] Care Team Providers Name Role Phone Momo Forbes Primary Care Provider Reason for Visit Reason Onset Date Comments Transplant 05/26/2017 refill Encounter Details Date Type Department Care Team Description 05/26/2017 Refill [facility] Anita Joshi MD Transplant (refill) Nephrology Clinic [address] [place] [address] (Wo rk) [address] [phone] Social History Tobacco Use Types Packs/Day Years [...] transplant documented in this encounter Care Teams Epic Trainer Relationship Specialty Start Date End Date Momo Forbes PCP - General Family Practice 01/02/14 [facility] 2000 [place] [address] documented as of this encounter
--- OUTSIDE RECORDS SUMMARY | 2022-06-30 10:55 | XMS_ITS | Encounter Summary ---
:1950 Author Organization [place] Address [address] [place] [address] Care Team Providers Name Role Phone Momo Forbes Primary Care Provider Joseph Quintana MD Unavailable Encounter Details Date Type Department Care Team Description 09/09/2017 External Order [facility] Nurse, [place] Kidney replaced by Results Transplant Clinic transplant [address] [place] [address] Social History Tobacco Use Types Packs/Day [...] 07/15/2017 10:48 AM Result s for this MEDICAL DEVICE SALES CONSULTANT procedure are i n the results section. BASIC METABOLIC Routine 07/15/2017 10:48 AM Kidney replaced by Results for this PANEL MEDICAL DEVICE SALES CONSULTANT transplant procedure are i n the results [...] Results (ABNORMAL) Hemoglobin A1c (07/15/2017 10:48 AM MEDICAL DEVICE SALES CONSULTANT) Patholo gist Method Time Signature Hemoglobin A1C >14.0 (H) <=6.4 % LABDE SCAN (External) Specimen (Source) Anatomical Collection Method Collection Time Re ceived Time Location / / Volume Laterality Blood specimen 07/15/2017 10:48 (specimen) AM MEDICAL DEVICE SALES CONSULTANT Narrative JESSICA PFT - 09/09/2017 9:36 PM MEDICAL DEVICE SALES CONSULTANT Verified by Sharon Martinez on 8. Patient Reported LAB - BLOOD ORDERABLES Performing Organization Address City/State/ZIP Code Phon e Number JESSICA PFT LABDE SCAN (ABNORMAL) Basic metabolic panel (07/15/2017 10:48 AM MEDICAL DEVICE SALES CONSULTANT) Analysis Performed At Patho logist [...] Laterality Blood specimen 07/15/2017 10:48 (specimen) AM MEDICAL DEVICE SALES CONSULTANT Narrative BREEZE PFT - 09/09/2017 9:36 PM MEDICAL DEVICE SALES CONSULTANT Verified by Sharon Martinez on 8. Orlando [...] Narrative BREEZE PFT - 09/09/2017 9:39 PM MEDICAL DEVICE SALES CONSULTANT Verified by Sharon Martinez on 8. Patient [...] Narrative BREEZE PFT - 09/09/2017 9:39 PM MEDICAL DEVICE SALES CONSULTANT Verified by Sharon Martinez on 8. Orlando [...] 51 (L) >60 LABDE SCAN (if ml/min/1.7 Hungarian) 3m2 (External) GFR Estimated 42 (L) >60 LABDE SCAN (External) ml/min/1.7 3m2 Specimen (Source) Anatomical Collection Method Collection Time Re ceived Time Location / / Volume Laterality Blood specimen 05/30/2017 9:32 AM (specimen) CDT Narrative BREEZE PFT - 09/09/2017 9:39 PM MEDICAL DEVICE SALES CONSULTANT Verified by Sharon Martinez on 8. Orlando [...] Narrative BREEZE PFT - 09/09/2017 9:44 PM MEDICAL DEVICE SALES CONSULTANT Verified by Sharon Martinez on 8. Patient Reported LAB - BLOOD ORDERABLES Performing Organization Address City/[facility]/ZIP Code Phon e Number BREEZE PFT [...] Narrative BREEZE PFT - 09/09/2017 9:44 PM MEDICAL DEVICE SALES CONSULTANT Verified by Sharon Martinez on 8. Patient Reported LAB - BLOOD ORDERABLES Performing Organization Address City/[facility] Code Phon e Number BREEZE PFT LABDE SCAN (ABNORMAL) Hemoglobin A1c (01/19/2017 9:30 AM CDT) Analysis Performed At [facility] logist Time Signature Hemoglobin A1C 12.4 (H) <=6.4 % LABDE SCAN (External) Specimen (Source) Anatomical Collection Method Collection Time Re ceived Time Location / / Volume Laterality Blood specimen 01/19/2017 9:30 AM (specimen) CDT Narrative BREEZE PFT - 09/09/2017 9:44 PM MEDICAL DEVICE SALES CONSULTANT Verified by Sharon Martinez on 8. Patient Reported LAB - BLOOD ORDERABLES Performing Organization Address City/[facility]/ZIP Code Phon e Number BREEZE PFT [...] Narrative JESSICA PFT - 09/09/2017 9:44 PM MEDICAL DEVICE SALES CONSULTANT Verified by Sharon Martinez on 8. Patient Reported LAB - BLOOD ORDERABLES Performing Organization Address City/State/ZIP Code Phon e Number BREEZE PFT LABDE SCAN documented in this encounter Visit Diagnoses Diagnosis Kidney replaced by transplant documented in this encounter Care Teams Electric Meter Tester Relationship Specialty Start Date End Date Momo Forbes PCP - General Family Practice 01/02/14 [facility] 1999 [place] [address] Joseph Quintana, Assigned Nephrology 03/29/21 MD Provider [address] [place] [address] 353 [facility] 1932 [place] [address] documented as of this encounter
--- OUTSIDE RECORDS SUMMARY | 2022-06-30 10:55 | XMS_ITS | Encounter Summary ---
:1950 Author Organization [place] Address [address] [place] [address] Care Team Providers Name Role Phone Momo Forbes Primary Care Provider Encounter Details Date Type Department Care Team Description 01/19/2017 Orders Only [facility] Loy Morales, Aft ercare following organ transplant; [facility] Kidney replaced by transplant; Laboratory [address] [facility] Encounter for long-term curr ent use of medication [address] [place] [phone] (Wo rk) Social History Tobacco Use Types [...] Results Tacrolimus level (01/19/2017 9:25 AM CDT) [facility] Method Time Signature Tacrolimus Last 0800 [facility] Dose 01/19/17 [facility] Tacrolimus 6.5 5.0 - [facility] 15.0 ug/L [facility] Comment: Tacrolimus Reference Range Kidney Transplant [...] Address City/State/ZIP Code Phon e Number [address] [address], [facility] documented in this encounter Visit Diagnoses Diagnosis Aftercare following organ transplant Kidney replaced by transplant Encounter for long-term current use of m edication documented in this encounter Care Teams Director Of Food And Nutrition Services Relationship Specialty Start Date End Date Momo Forbes PCP - General Family Practice 01/02/14 [facility] [address] [place] [address] documented as of this encounter
--- OUTSIDE RECORDS SUMMARY | 2022-06-30 10:55 | XMS_ITS | Encounter Summary ---
:1950 Author Organization [place] Address [address] [place] [address]. [place] [address] Care Team Providers Name Role Phone Momo Forbes Primary Care Provider Encounter Details Date Type Department Care Team Description 03/23/2017 Orders Only [facility] Rossi, Estefania [place] replaced by Nephrology Clinic transplant (Primary [address] Dx) [address] [place] [phone] Social History Tobacco Use Types Packs/Day Years [...] Primary documented in this encounter Care Teams Mental Health Aides Teacher Relationship Specialty Start Date End Date Momo Forbes PCP - General Family Practice 01/02/14 [facility] [address] [place] [address] documented as of this encounter
--- OUTSIDE RECORDS SUMMARY | 2022-06-30 10:55 | XMS_ITS | Encounter Summary ---
:1950 Author Organization [place] Address [address] [place] [address] Care Team Providers Name Role Phone ForbesMomo Primary Care Provider Reason for Visit Reason Onset Date Comments Transplant 06/01/2017 [place] returning call Left on 06/05/17 Encounter Details Date Type Department Care Team Description 06/01/[address] [facility] Shiva Kahn, tire mechanic ([place] Transplant Clinic [facility] returning call Left [address] on 06/05/17) [place], [place] [address] [place], [place] [phone] Social History Tobacco Use Types Packs/Day [...] VM to call him on Tuesday06/06/17. ADDENDUM: CORPORATION LAWYER TASK: Call with questions and instruction per [...] on filedocumented in this encounter Care Teams Scout Relationship Specialty Start Date End Date Momo Forbes PCP - General Family Practice 01/02/[address] [address] documented as of this encounter
--- OUTSIDE RECORDS SUMMARY | 2022-06-30 10:55 | XMS_ITS | Encounter Summary ---
:1950 Author Organization [place] Address [address] [place] [address] Care Team Providers Name Role Phone Forbes, Ton Primary Care Provider Encounter Details Date Type Department Care Team Description 07/22/2016 Orders Only [facility], Joseph Conor isael, [facility] 500 [facility] [address] [place] [phone] [place] [address] [place] [address] (Wo rk) Social History Tobacco [...] Res ults for this MASS SPECTROMETRY PM SENIOR CLINICAL RESEARCH ASSOCIATE procedure are in the results section. documented in this encounter Results (ABNORMAL) Tacrolimus level (08/09/2016 12:15 PM SENIOR CLINICAL RESEARCH ASSOCIATE) [facility] Method Time Signature Tacrolimus Last 08/08/16 [facility] Dose 1800 [facility] Tacrolimus 3.8 (L) 5.0 - [facility] Level 15.0 ug/L [facility] Comment: Tacrolimus [...] its perform ance characteristics determined by the [place] [...] / Volume Laterality 08/09/2016 12:15 08/11/2016 PM SENIOR CLINICAL RESEARCH ASSOCIATE 10:15 AM SENIOR CLINICAL RESEARCH ASSOCIATE Deysi Alicea MD LAB - BLOOD ORDERABLES Performing Organization Address City/State/ZIP Code Phon e Number [facility] [address] documented in this encounter Visit Diagnoses Not on filedocumented in this encounter Care Teams Farm Demonstrator Relationship Specialty Start Date End Date Momo Forbes PCP - General Family Practice 01/02/14 [facility] [address] [place] [phone] documented as of this encounter
--- OUTSIDE RECORDS SUMMARY | 2022-06-30 10:55 | XMS_ITS | Encounter Summary ---
:1950 Author Organization [place] Address [address] [place] [address] Care Team Providers Name Role Phone Momo Forbes Primary Care Provider Reason for Visit Reason Onset Date Comments Transplant 05/10/2016 refill Encounter Details Date Type Department Care Team Description 05/10/2016 Refill The Transplant Chucho Perez MD Transplant (refill) 2nd Floor, Clinic [address] [place] [address] [facility] [place] [address] Social History Tobacco Use Types [...] send new rx Thank you Janelle Flowers [facility] [phone] documented in this encounter Plan of Treatment Not on filedocumented as of this encounter Visit Diagnoses Diagnosis Kidney transplanted - Primary Kidney replaced by transplant documented in this encounter Care Teams Rotary Dryer Operator Relationship Specialty Start Date End Date Momo Forbes PCP - General Family Practice 01/02/14 [facility] [address] [place] [phone] documented as of this encounter
--- OUTSIDE RECORDS SUMMARY | 2022-06-30 10:55 | XMS_ITS | Encounter Summary ---
:1950 Author Organization [place] Address [address] [place] [address] Care Team Providers Name Role Phone Momo Forbes Primary Care Provider Encounter Details Date Type Department Care Team Description 05/31/2017 Orders Only [facility] Loy Morales, Kid olivia replaced by [facility] MD transplant Laboratory 420 [facility] 500 [facility] 609 [place] [phone] (Wo rk) Social History Tobacco Use Types [...] [facility] Dose 1930 1:05 PM CDT [facility] Tacrolimus 3.0 (L) 5.0 - 05/31/2017 [facility] Level 15.0 ug/L 7:54 PM CDT [facility] Comment: Tacrolimus Reference [place] Kidney [...] its performa nce characteristics determined by the [facility] [...] Phon e Number [facility] 500 [place] [address] [facility] documented in this encounter Visit Diagnoses Diagnosis Kidney replaced by transplant documented in this encounter Care Teams Ship Joiner Relationship Specialty Start Date End Date Momo Forbes PCP - General Family Practice 01/02/14 [facility] [address] [place] [address] documented as of this encounter
--- OUTSIDE RECORDS SUMMARY | 2022-06-30 10:55 | XMS_ITS | Encounter Summary ---
:1950 Author Organization [place] Address [facility] [place] [address] Care Team Providers Name Role Phone Momo Forbes Primary Care Provider Reason for Visit Reason Onset Date Comments Transplant Pharmacy Medication Review 01/26/2017 Encounter Details Date Type Department Care Team Description 01/26/2017 Telephone [facility] Janes Rodriguez, Transplant Pharmacy 500 [facility] [place] [phone] Social History Tobacco Use Types Packs/Day Years [...] on filedocumented in this encounter Care Teams Fan Balancer Relationship Specialty Start Date End Date Momo Forbes PCP - General Family Practice 01/02/14 [facility] 1999 [place] [address] documented as of this encounter
--- OUTSIDE RECORDS SUMMARY | 2022-06-30 10:55 | XMS_ITS | Encounter Summary ---
:1950 Author Organization [place] Address [address] [place] [address] Care Team Providers Name Role Phone Momo Forbes Primary Care Provider Joseph Quintana MD Unavailable Encounter Details Date Type Department Care Team Description 08/18/2016 External Order Results [facility] Nurse, [facility] Transplant Clinic 9 [place] [address] Social History Tobacco Use Types [...] 08/09/2016 12:21 PM Results for this RESULTS RAILWAY TRACTION LINE WORKER procedure are i n the results section. documented in this encounter Results (ABNORMAL) TXP External Lab Result (08/09/2016 12:21 PM RAILWAY TRACTION LINE WORKER) Analysis Performed At Patho logist Time [...] / / Volume Laterality 08/09/2016 12:21 PM RAILWAY TRACTION LINE WORKER Narrative [facility] - 08/18/2016 1:35 PM RAILWAY TRACTION LINE WORKER Verified by Jessica Major on 016. Patient Reported LABORATORY Performing Organization Address City/State/ZIP Code Phon e Number [facility] LABDE SCAN documented in this encounter Visit Diagnoses Not on filedocumented in this encounter Care Teams Manager Contracting Relationship Specialty Start Date End Date Momo Forbes PCP - General Family Practice 01/02/14 [facility] 1999 [place] [address] Joseph Quintana, Assigned Nephrology 03/29/21 MD Provider [address] [place] [address] 1932 [place], [place] [phone] documented as of this encounter
--- OUTSIDE RECORDS SUMMARY | 2022-06-30 10:55 | XMS_ITS | Encounter Summary ---
:1950 Author Organization [place] Address [address] [place] [address] Care Team Providers Name Role Phone Forbes, Momo He Primary Care Provider Reason for Visit Reason Onset Date Comments Transplant Immunosuppression Management 08/13/2016 Encounter Details Date Type Department Care Team Description 08/13/2016 Telephone [facility] Shiva Kahn [facility]p [facility] RN Immunosuppression [address] [place] [address] [address] [place] [address] [place] [phone] Social History Tobacco Use Types Packs/Day Years [...] Patient will repeat labs in 1-2 weeks. CLASSIFIER Telephone Encounter - Shiva Kahn RN - 08/13/2016 7:42 AM CST Tacrolimus level 3.8 reported as 18-hour level. PLAN: Verify timing of labs tac dose and time of blood draw for tac level. Repeat tac level taking care to get a good 12-hour level (11-13 hours acceptable). TASK: Please call patient with questions and instructions per plan. CLASSIFIER documented in this encounter Plan of Treatment Not on filedocumented as of this encounter Visit Diagnoses Diagnosis Kidney replaced by transplant - Primary Aftercare following organ transplant Encounter for long-term current use of m edication documented in this encounter Care Teams Electrician Control Equipment Relationship Specialty Start Date End Date Momo Forbes PCP - General Family Practice 01/02/14 [facility] [address] [place] [address] documented as of this encounter
--- OUTSIDE RECORDS SUMMARY | 2022-06-30 10:55 | XMS_ITS | Encounter Summary ---
:1950 Author Organization [place] Address [facility] [place] [address] Care Team Providers Name Role Phone Momo Forbes Primary Care Provider Reason for Visit Reason Onset Date Comments Refill Request 06/28/2017 mycophenolate Encounter Details Date Type Department Care Team Description 06/28/2017 Refill [facility] Joseph Quintana Refill R equest Transplant Clinic MD Herminio (mycophenolate) [address] [place] [phone] [place] [address] (Wo rk) Social History Tobacco [...] Fill Date: 05/31/17 Quantity: 180 Janelle Lionel [facility] [phone] K PATROL documented in this encounter Plan of Treatment Not on filedocumented as of this encounter Visit Diagnoses Diagnosis Kidney transplanted - Primary Kidney replaced by transplant documented in this encounter Care Teams Administrative And Program Specialist Relationship Specialty Start Date End Date Momo Forbes PCP - General Family Practice 01/02/14 [facility] [address] [place] [address] documented as of this encounter
--- OUTSIDE RECORDS SUMMARY | 2022-06-30 10:56 | XMS_ITS | Encounter Summary ---
:1950 Author Organization [place] Address [address] [place] [address] Care Team Providers Name Role Phone Momo Forbes Primary Care Provider Joseph Quintana MD Unavailable Encounter Details Date Type Department Care Team Description 03/18/2016 External Order Results [facility] Nurse, [facility] Transplant Clinic 9 [place] [address] Social History Tobacco Use Types [...] External Lab Result (03/17/2016 10:45 AM CDT) [facility] Method Time Signature Sodium (External) 139 [...] this encounter Care Teams Associate Professor Of Music Relationship Specialty Start Date End Date Momo Forbes PCP - General Family Practice 5/14/14 [facility] 1999 [place] [address] Joseph Quintana, Assigned Nephrology 03/29/21 MD Provider [address] [place] [address] 1932 [place] [address] documented as of this encounter
--- OUTSIDE RECORDS SUMMARY | 2022-06-30 10:56 | XMS_ITS | Encounter Summary ---
:1950 Author Organization [place] Address [facility] [place] [address] Care Team Providers Name Role Phone Momo Forbes Primary Care Provider Reason for Visit Reason Onset Date Comments Transplant 02/19/2016 refill Encounter Details Date Type Department Care Team Description 02/19/2016 Refill The Transplant Deysi Burns MD Transplant (refill) 2nd Floor, Clinic [address] [place] [address] [facility] [place] [address] Social History Tobacco Use Types [...] transplant documented in this encounter Care Teams Architectural Designer Relationship Specialty Start Date End Date Momo Forbes PCP - General Family Practice 01/02/14 [facility] [address] [place] [address] documented as of this encounter
--- OUTSIDE RECORDS SUMMARY | 2022-06-30 10:56 | XMS_ITS | Encounter Summary ---
:1950 Author Organization [place] Address [address] [place] [address] Care Team Providers Name Role Phone Forbes, Ton Primary Care Provider Encounter Details Date Type Department Care Team Description 02/20/2016 Orders Only [facility], Joseph Conor isael, [facility] 500 [facility] [address] [place] [address] [phone] [place] [address] [place] [address] (Wo rk) Social History [...] (ABNORMAL) Tacrolimus level (03/17/2016 10:44 AM CDT) [facility] Method Time Signature Tacrolimus Last 2100 [facility] Dose 03/16/16 [facility] Tacrolimus 4.2 (L) 5.0 - UNIVERSITY [...] Phon e Number [facility] [address] documented in this encounter Visit Diagnoses Not on filedocumented in this encounter Care Teams Mailroom Supervisor Relationship Specialty Start Date End Date Momo Forbes PCP - General Family Practice 01/02/14 [facility] [address] [place] [phone] documented as of this encounter
--- OUTSIDE RECORDS SUMMARY | 2022-06-30 10:56 | XMS_ITS | Encounter Summary ---
:1950 Author Organization [place] Address [address] [place] [address] Care Team Providers Name Role Phone Momo Forbes Primary Care Provider Reason for Visit Reason Onset Date Comments Transplant 03/30/2016 refill Encounter Details Date Type Department Care Team Description 03/30/2016 Refill The Transplant Deysi Burns MD Transplant (refill) 2nd Floor, Clinic [address] [place] [address] [facility] [address] Social History Tobacco Use Types [...] Date: 02/19/16 Quantity: 240 Thanks!! Janelle Jackson [facility] documented in this encounter Plan of Treatment Not on filedocumented as of this encounter Visit Diagnoses Diagnosis Kidney transplanted - Primary Kidney replaced by transplant documented in this encounter Care Teams Manufacturing Inspector Relationship Specialty Start Date End Date Momo Forbes PCP - General Family Practice 01/02/14 [facility] [address] [place] [address] documented as of this encounter
--- OUTSIDE RECORDS SUMMARY | 2022-06-30 10:56 | XMS_ITS | Encounter Summary ---
:1950 Author Organization [place] Address [facility] [place] [address] Care Team Providers Name Role Phone Momo Forbes Primary Care Provider Reason for Visit Reason Comments RECHECK 6 mo follow up,christiano cruz Encounter Details Date Type Department Care Team Description 04/20[facility]2016 [facility] Renal hypertension, stage 1-4 or unspecified chronic kidney disease (Primary Dx); Nephrology Clinic Reactive depression; [address] Thrombocytopenia (H) 909 [facility] RANJAN [address] [place] [address] Social History Tobacco Use Types Packs/Day [...] Body Mass Index 41.55 09/02/2015 4:32 PM INSTRUCTOR PRIVATE documented in this encounter Progress Notes Chucho [...] encounter Results Folate RBC (10/25/2016 3:54 PM INSTRUCTOR PRIVATE) athologist Signature HCT Within 46.0 % [address] Folate RBC 663 ng/mL [facility] Comment: Reference range: >=366 (Note) Performed by [facility], [address] [place] [address] [email or web address], Geoff Reed MD, Lab. Director Specimen Anatomical Collection Method Collection Time Receive d Time (Source) Location / / Volume Laterality Blood specimen 10/25/2016 3:54 PM 017 3:55 (specimen) INSTRUCTOR PRIVATE PM INSTRUCTOR PRIVATE Chucho Joshi MD LAB - BLOOD ORDERABLES Performing Organization Address City/State/ZIP Code Phon e Number [address] [address] [facility] documented in this encounter Visit Diagnoses Diagnosis Renal hypertension, stage 1-4 or unspeci fied chronic kidney disease - Primary Reactive depression Dysthymic disorder Thrombocytopenia (H) Thrombocytopenia, unspecified documented in this encounter Care Teams Conventional Machinist Relationship Specialty Start Date End Date Momo Forbes PCP - General Family Practice 01/02/14 [facility] [address] [place] [address] documented as of this encounter
--- OUTSIDE RECORDS SUMMARY | 2022-06-30 10:56 | XMS_ITS | Encounter Summary ---
:1950 Author Organization [place] Address [facility] [place] [address] Care Team Providers Name Role Phone Momo Forbes Primary Care Provider Reason for Visit Reason Onset Date Comments Transplant 02/19/2016 refill Encounter Details Date Type Department Care Team Description 02/19/2016 Refill The Transplant Deysi Burns MD Transplant (refill) 2nd Floor, Clinic [address]A [address] [place] [address] [place] [address] Social History Tobacco Use Types [...] transplant documented in this encounter Care Teams Drapery Sewer Hand Relationship Specialty Start Date End Date Momo Forbes PCP - General Family Practice 01/02/14 [facility] [address] [place] [address] documented as of this encounter
--- OUTSIDE RECORDS SUMMARY | 2022-06-30 10:56 | XMS_ITS | Encounter Summary ---
:1950 Author Organization [place] Address [address] [place] [address]. [place] [address] Care Team Providers Name Role Phone Momo Forbes Primary Care Provider Reason for Visit Reason Onset Date Comments Transplant 03/15/2016 refill Encounter Details Date Type Department Care Team Description 03/15/2016 Refill [facility] Cristy Chen LPN T ransplant (refill) Transplant Clinic [address] [place] [address] [phone] Social History Tobacco Use Types Packs/Day [...] documented in this encounter Care Teams Track Maintainer Relationship Specialty Start Date End Date Momo Forbes PCP - General Family Practice 01/02/14 [facility] [address] [place] [address] documented as of this encounter
--- OUTSIDE RECORDS SUMMARY | 2022-06-30 10:57 | XMS_ITS | Encounter Summary ---
:1950 Author Organization [place] Address [address] [place] [address] Care Team Providers Name Role Phone Ingrid Santana RN Unavailable Unavailable Momo Forbes Primary Care Provider Joseph Quintana MD Unavailable Encounter Details Date Type Department Care Team Description 11/07/2014 External Order Results The Transplant Ce nter Nurse, [facility] 2nd Floor, Clinic [address]A [address] [address] Social History Tobacco Use [...] Estimated >60 >60 LABDE SCAN (if ml/min/1.7 Portuguese) 3m2 (External) GFR Estimated 51 (L) >60 [...] filedocumented in this encounter Care Teams Inspector Aligning Relationship Specialty Start Date End Date Momo Forbes PCP - General Family Practice 01/02/14 [place] [address] Ingrid Santana, RN Registered Nurse Transplant 02/10/12 Joseph Quintana, Assigned Nephrology 03/29/21 MD Provider [address] [place] [phone] documented as of this encounter
--- OUTSIDE RECORDS SUMMARY | 2022-06-30 10:57 | XMS_ITS | Encounter Summary ---
:1950 Author Organization [place] Address [facility] [place] [address] Care Team Providers Name Role Phone Ingrid Santana RN Unavailable Unavailable Momo Forbes Primary Care Provider Encounter Details Date Type Department Care Team Description 12/27/2014 External Order Results The Transplant Ce nter Nurse, [facility] 2nd Floor, Clinic [address]A [address] [address] Social History Tobacco Use Types [...] External Lab Result (12/25/2014 9:48 AM CDT) [facility] Method Time Signature Sodium 138 135 [...] 51 (L) >60 LABDE SCAN (if ml/min/1. Gabonese) 73m2 (External) GFR Estimated 42 (L) >60 [...] on filedocumented in this encounter Care Teams Satellite Installer Relationship Specialty Start Date End Date Momo Forbes PCP - General Family Practice 01/02/14 [facility] [address] [place] [address] Ingrid Santana, RN Registered Nurse Transplant 02/10/12 documented as of this encounter
--- OUTSIDE RECORDS SUMMARY | 2022-06-30 10:57 | XMS_ITS | Encounter Summary ---
:1950 Author Organization [place] Address [address] [place] [address] Care Team Providers Name Role Phone Ingrid Santana RN Unavailable Unavailable Momo Forbes Primary Care Provider Encounter Details Date Type Department Care Team Description 12/20/2014 Orders Only [facility], [facility] [place] [address] [phone] [place] [address] 754 [place] [address] (Wo rk) Social History Tobacco [...] Results Tacrolimus level (12/25/2014 9:45 AM CDT) [facility] Method Time Signature Tacrolimus Last 12/24/14 [facility] Dose 2130 [facility] Tacrolimus 9.5 5.0 - [facility] Level 15.0 ug/L [facility] Comment: Tacrolimus Reference [...] its perform ance characteristics determined by the [facility], ??Special Chemistry Laboratory. It has [...] e Number [facility] [address] documented in this encounter Visit Diagnoses Not on filedocumented in this encounter Care Teams Postal Service Mail Processor Relationship Specialty Start Date End Date Momo Forbes PCP - General Family Practice 01/02/14 [place] [phone] Ingrid Santana, RN Registered Nurse Transplant 02/10/12 documented as of this encounter
--- OUTSIDE RECORDS SUMMARY | 2022-06-30 10:57 | XMS_ITS | Encounter Summary ---
:1950 Author Organization [place] Address [facility] [place] [address] Care Team Providers Name Role Phone Ingrid Santana RN Unavailable Unavailable Momo Forbes Primary Care Provider Encounter Details Date Type Department Care Team Description 10/04/2014 External Order Results The Transplant Ce nter Nurse, [facility] 2nd Floor, Clinic [address]A [address] [address] Social History Tobacco Use Types [...] AM Results f or this RESULTS SENIOR MANAGER procedure are i n the results section. documented in this encounter Results (ABNORMAL) TXP External Lab Result (10/03/2014 8:33 AM SENIOR MANAGER) Analysis Performed At Patho logist Time [...] 57 (L) >60 LABDE SCAN (if ml/min/1.7 Swazi) 3m2 (External) GFR Estimated 47 (L) >60 [...] / Volume Laterality 10/03/2014 8:33 AM SENIOR MANAGER Narrative [facility] - 10/04/2014 8:51 AM SENIOR MANAGER Verified by Josseline Palma on 5. Patient Reported LABORATORY Performing Organization Address City/State/ZIP Code Phon e Number [facility] documented in this encounter Visit Diagnoses Not on filedocumented in this encounter Care Teams Laborer Cutting Tool Relationship Specialty Start Date End Date Momo Forbes PCP - General Family Practice 01/02/14 [facility] [address] [place] [address] Ingrid Santana, RN Registered Nurse Transplant 02/10/12 documented as of this encounter
--- OUTSIDE RECORDS SUMMARY | 2022-06-30 10:57 | XMS_ITS | Encounter Summary ---
:1950 Author Organization [place] Address [address] [place] [address]. [place] [address] Care Team Providers Name Role Phone Momo Forbes Primary Care Provider Reason for Visit Reason Onset Date Comments Transplant 02/06/2016 refill Encounter Details Date Type Department Care Team Description 02/06/[address] [facility] Cristy Chen LPN T ransplant (refill) Transplant Clinic [address] [place] [address] [phone] Social History Tobacco Use Types Packs/Day [...] transplant documented in this encounter Care Teams Equipment Technician Relationship Specialty Start Date End Date Momo Forbes PCP - General Family Practice 01/02/14 [facility] [address] [place] [address] documented as of this encounter
--- OUTSIDE RECORDS SUMMARY | 2022-06-30 10:57 | XMS_ITS | Encounter Summary ---
:1950 Author Organization [place] Address [facility] [place] [address] Care Team Providers Name Role Phone Momo Forbes Primary Care Provider Reason for Visit Reason Onset Date Comments Transplant Pharmacy Medication Review 02/05/2016 Encounter Details Date Type Department Care Team Description 02/05/2016 Telephone [facility] Nani Humphrey, [facility] Transplant Pharmacy 500 [facility] [place] [address] [place] [phone] [place] [address] (Wo rk) Social History Tobacco Use Types [...] on filedocumented in this encounter Care Teams Orthotist Prosthetist Relationship Specialty Start Date End Date Momo Forbes PCP - General Family Practice 01/02/14 [facility] [address] [place] [address] documented as of this encounter
--- OUTSIDE RECORDS SUMMARY | 2022-06-30 10:57 | XMS_ITS | Encounter Summary ---
:1950 Author Organization [place] Address [address] [place] [address] Care Team Providers Name Role Phone Ingrid Santana RN Unavailable Unavailable Momo Forbes Primary Care Provider Reason for Visit Reason Onset Date Comments Refill Request 02/10/2015 mycophenolate, smz/t mp Encounter Details Date Type Department Care Team Description 02/10/2015 Refill The Transplant Deysi Burns, Refill Request 2nd Floor, Clinic 2A MD (mycophenolate, [facility] smz/tmp) Building [address] [place] [phone] [place] [address] [place] [address] Social History Tobacco Use Types [...] Fill Date: 01/09/15 Last Fill Quantity: 240 Smz/[id number] Last Fill Date: 01/09/15 Last Fill Quantity: 31 Gayathri Orta [facility] [address] [facility] [address] documented in this encounter Plan of Treatment Not on filedocumented as of this encounter Visit Diagnoses Diagnosis S/P kidney transplant - Primary Kidney replaced by transplant documented in this encounter Care Teams Photographer Aerial Relationship Specialty Start Date End Date Momo Forbes PCP - General Family Practice 01/02/[address] [address] Ingrid Santana, RN Registered Nurse Transplant 02/10/12 documented as of this encounter
--- OUTSIDE RECORDS SUMMARY | 2022-06-30 10:57 | XMS_ITS | Encounter Summary ---
:1950 Author Organization [place] Address [address] [place] [address] Care Team Providers Name Role Phone Ingrid Santana RN Unavailable Unavailable Momo Forbes Primary Care Provider Encounter Details Date Type Department Care Team Description 10/20/2014 Orders Only [facility], Joseph Conor [facility], [facility] [address] [phone] [place] [address] 909 [place] [address] (Wo rk) Social History Tobacco [...] Results Tacrolimus level (11/05/2014 8:29 AM CDT) [facility] Method Time Signature Tacrolimus Last 2029, [facility] Dose 11/04/14 [facility] Tacrolimus 7.7 5.0 - [facility] [...] Phon e Number [facility] [address] documented in this encounter Visit Diagnoses Not on filedocumented in this encounter Care Teams Cd Mixer Relationship Specialty Start Date End Date Momo Forbes PCP - General Family Practice 01/02/14 [place] [phone] Ingrid Santana, RN Registered Nurse Transplant 02/10/12 documented as of this encounter
--- OUTSIDE RECORDS SUMMARY | 2022-06-30 10:57 | XMS_ITS | Encounter Summary ---
:1950 Author Organization [place] Address [address] [place] [address] Care Team Providers Name Role Phone Ingrid Santana RN Unavailable Unavailable Momo Forbes Primary Care Provider Reason for Visit Reason Onset Date Comments Refill Request 09/06/2014 Dok Plus Encounter Details Date Type Department Care Team Description 09/06/2014 Refill The Transplant Deysi Burns, Refill Request (Dok 2nd Floor, Clinic 2A MD Plus) Tommy Wilburn [phone] [place] [address] [place] [address] Social History Tobacco Use Types [...] Fill Date: 02/08/14 Quantity: 100 Michael Manuel [facility] [phone] GE LEVERMAN documented in this encounter Plan of Treatment Not on filedocumented as of this encounter Visit Diagnoses Diagnosis S/P kidney transplant - Primary Kidney replaced by transplant documented in this encounter Care Teams Medical Concierge Relationship Specialty Start Date End Date Momo Forbes PCP - General Family Practice 01/02/14 [place] [id number] Ingrid Santana, RN Registered Nurse Transplant 02/10/12 documented as of this encounter
--- OUTSIDE RECORDS SUMMARY | 2022-06-30 10:57 | XMS_ITS | Encounter Summary ---
:1950 Author Organization [place] Address [address] [place] [address] Care Team Providers Name Role Phone Ingrid Santana RN Unavailable Unavailable Momo Forbes Primary Care Provider Joseph Quintana MD Unavailable Encounter Details Date Type Department Care Team Description 02/03/2015 External Order Results The Transplant Ce nter Nurse, [facility] 2nd Floor, Clinic [address]A [address] [phone] Social History Tobacco Use [...] filedocumented in this encounter Care Teams Licensed Appraiser Relationship Specialty Start Date End Date Momo Forbes PCP - General Family Practice 01/02/14 [facility] [address] [place] [address] Ingrid Santana, RN Registered Nurse Transplant 02/10/12 Joseph Quintana, Assigned Nephrology 03/29/21 MD Provider [address] [place] [address] [address] [place] [address] documented as of this encounter
--- OUTSIDE RECORDS SUMMARY | 2022-06-30 10:57 | XMS_ITS | Encounter Summary ---
:1950 Author Organization [place] Address [address] [place] [address] Care Team Providers Name Role Phone Ingrid Santana RN Unavailable Unavailable Momo Forbes Primary Care Provider Encounter Details Date Type Department Care Team Description 07/22/2015 Orders Only [facility] Dereck Dangelo MD [facility] Laborato ry 420 [facility] 195 500 [place], [place] [address] [place] [address] [phone] Social History Tobacco Use Types Packs/Day Years [...] PM R esults for this MASS SPECTROMETRY DIRECTOR OF CARDIOPULMONARY SERVICES procedure are in the results section. documented in this encounter Results Tacrolimus level (08/12/2015 4:35 PM DIRECTOR OF CARDIOPULMONARY SERVICES) [facility] Method Time Signature Tacrolimus Last 0700 [facility] Dose 08/12/15 [facility] Tacrolimus 5.3 5.0 - [facility] Level [...] its perform ance characteristics determined by the [facility], ??Special Chemistry Laboratory. It [...] Laterality 08/12/2015 4:35 PM 08/18/ 5 9:11 DIRECTOR OF CARDIOPULMONARY SERVICES AM DIRECTOR OF CARDIOPULMONARY SERVICES Mingo Dangelo MD LAB - BLOOD ORDERABLES Performing Organization Address City/State/ZIP Code Phon e Number [facility] [address] documented in this encounter Visit Diagnoses Not on filedocumented in this encounter Care Teams Window Repairer Relationship Specialty Start Date End Date Momo Forbes PCP - General Family Practice 01/02/14 [facility] [address] [place] [address] Ingrid Santana, RN Registered Nurse Transplant 02/10/12 documented as of this encounter
--- OUTSIDE RECORDS SUMMARY | 2022-06-30 10:57 | XMS_ITS | Encounter Summary ---
:1950 Author Organization [place] Address [address] [place] [address] Care Team Providers Name Role Phone Ingrid Santana RN Unavailable Unavailable Momo Forbes Primary Care Provider Reason for Visit Reason Onset Date Comments Medication Question 09/12/2014 Encounter Details Date Type Department Care Team Description 09/12/2014 Telephone PHARMACY Beny Staton Geovanni Medication Question 500 [facility] [place] [address] PHARMACY [phone] [place] [address] Social History Tobacco Use Types [...] his dr told himhis bp was good. NG ERECTOR documented in this encounter Plan of Treatment Not on filedocumented as of this encounter Visit Diagnoses Not on filedocumented in this encounter Care Teams Chief Drafter Relationship Specialty Start Date End Date Momo Forbes PCP - General Family Practice 01/02/14 [facility] [address] [place] [address] Ingrid Santana, RN Registered Nurse Transplant 02/10/12 documented as of this encounter
--- OUTSIDE RECORDS SUMMARY | 2022-06-30 10:57 | XMS_ITS | Encounter Summary ---
:1950 Author Organization [place] Address [facility] [place] [address] Care Team Providers Name Role Phone Ingrid Santana RN Unavailable Unavailable Momo Forbes Primary Care Provider Reason for Visit Reason Onset Date Comments Refill Request 04/21/2015 crestor Encounter Details Date Type Department Care Team Description 04/21/2015 Refill [facility] [address] Refill Request Physicians Orestes Hernandez MD (crestor) [facility] Building [facility] 4th Floor, Clinic 4B [address] [place] [phone] [place] [address] (Wo rk) [address] [phone] Social History Tobacco Use Types Packs/Day Years [...] # refills: 11 Last Office Visit with [facility] primary care provider: 05/14/14 CHOL 126 02/06/2014 HDL 35 02/06/2014 LDL 71 02/06/2014 TRIG 100 02/06/2014 CHOLHDLRATIO 3.6 02/06/2014 Gayathri Orta [facility] 7[address] [facility] [address] documented in this encounter Plan of Treatment Not on filedocumented as of this encounter Visit Diagnoses Diagnosis DM (diabetes mellitus), type 2 (H) - Ana ashley Type II or unspecified type diabetes aung litus without mention of complication, not stated as uncontrolled Other and unspecified hyperlipidemia documented in this encounter Care Teams Customer Insight Analyst Relationship Specialty Start Date End Date Momo Forbes PCP - General Family Practice 01/02/[address] [address] Ingrid Santana, RN Registered Nurse Transplant 02/10/12 documented as of this encounter
--- OUTSIDE RECORDS SUMMARY | 2022-06-30 10:57 | XMS_ITS | Encounter Summary ---
:1950 Author Organization [place] Address [address] [place] [address] Care Team Providers Name Role Phone Ingrid Santana RN Unavailable Unavailable Momo Forbes Primary Care Provider Encounter Details Date Type Department Care Team Description 12/30/2014 Orders Only The Transplant Shiva Arias, RN -donor kidney 2nd Floor, Clinic 2A [facility] transplant recipient Tommy Guillermoteen 420 [facility] (Primary Dx) Building [address] [place] [address] [place] [address] Social History Tobacco Use Types [...] transplant documented in this encounter Care Teams Assurance Engineer Relationship Specialty Start Date End Date Momo Forbes PCP - General Family Practice 01/02/14 [facility] [address] [place] [phone] Ingrid Santana, RN Registered Nurse Transplant 02/10/12 documented as of this encounter
--- OUTSIDE RECORDS SUMMARY | 2022-06-30 10:57 | XMS_ITS | Encounter Summary ---
:1950 Author Organization [place] Address [facility] [place] [address] Care Team Providers Name Role Phone Ingrid Santana RN Unavailable Unavailable Momo Forbes Primary Care Provider Reason for Visit Reason Onset Date Comments Refill Request 06/23/2015 amlodipine Encounter Details Date Type Department Care Team Description 06/23/2015 Refill [facility] [address] Refill Request Physicians Orestes Hernandez MD (amlodipine) [facility] Building [place] 4th Floor, Clinic 4B [address] [phone] (Wo rk) [address] [phone] Social History Tobacco Use Types Packs/Day Years [...] 05/13/14 139/73 04/09/14 163/78 Ada You [facility] [phone] RING MACHINE OPERATOR AUTOMATIC documented in this encounter Plan of Treatment Not on filedocumented as of this encounter Visit Diagnoses Diagnosis HTN (hypertension) - Primary Unspecified essential hypertension documented in this encounter Care Teams Plug Wirer Relationship Specialty Start Date End Date Momo Forbes PCP - General Family Practice 01/02/[address] [address] Ingrid Santana, RN Registered Nurse Transplant 02/10/12 documented as of this encounter
--- OUTSIDE RECORDS SUMMARY | 2022-06-30 10:57 | XMS_ITS | Encounter Summary ---
:1950 Author Organization [place] Address [address] [place] [address] Care Team Providers Name Role Phone Ingrid Santana RN Unavailable Unavailable Momo Forbes Primary Care Provider Reason for Visit Reason Onset Date Comments Medication Question 01/17/2015 Encounter Details Date Type Department Care Team Description 01/17/2015 Telephone PHARMACY Beny Staton Geovanni Medication Question 500 [facility] [place] [address] PHARMACY [phone] [place] [address] Social History Tobacco Use Types [...] keep better tabs. His last to in [employer] were good but that was 8 months ago. Beny Staton [facility] Specialty Pharmacist [phone] documented in this encounter Plan of Treatment Not on filedocumented as of this encounter Visit Diagnoses Not on filedocumented in this encounter Care Teams Lokie Engineer Relationship Specialty Start Date End Date Momo Forbes PCP - General Family Practice 01/02/14 [facility] [address] [place] [address] Ingrid Santana, RN Registered Nurse Transplant 02/10/12 documented as of this encounter
--- OUTSIDE RECORDS SUMMARY | 2022-06-30 10:57 | XMS_ITS | Encounter Summary ---
:1950 Author Organization [place] Address [facility] [place] [address] Care Team Providers Name Role Phone Ingrid Santana RN Unavailable Unavailable Momo Forbes Primary Care Provider Reason for Visit Reason Onset Date Comments Patient Reminder 08/28/2015 Encounter Details Date Type Department Care Team Description 08/28/2015 Telephone Nephrology Yesenia Clements LPN Patient Reminder 2nd Floor, Clinic 2A [place] [phone] Social History Tobacco Use Types Packs/Day [...] Patient confirmed and understood. Yesenia Clements CMA T BUILDER documented in this encounter Plan of Treatment Not on filedocumented as of this encounter Visit Diagnoses Not on filedocumented in this encounter Care Teams Log Data Technician Relationship Specialty Start Date End Date Momo Forbes PCP - General Family Practice 01/02/14 [facility] [address] [place] [address] Ingrid Santana, RN Registered Nurse Transplant 02/10/12 documented as of this encounter
--- OUTSIDE RECORDS SUMMARY | 2022-06-30 10:57 | XMS_ITS | Encounter Summary ---
:1950 Author Organization [place] Address [facility] [place] [address] Care Team Providers Name Role Phone Momo Forbes Primary Care Provider Reason for Visit Reason Onset Date Comments Transplant 01/16/2016 refill Encounter Details Date Type Department Care Team Description 01/16/2016 Refill The Transplant Deysi Burns MD Transplant (refill) 2nd Floor, Clinic [address] [place] [address] [facility] [place] [address] Social History Tobacco Use Types [...] transplant documented in this encounter Care Teams Bump Grader Operator Relationship Specialty Start Date End Date Momo Forbes PCP - General Family Practice 01/02/14 [facility] [address] [place] [address] documented as of this encounter
--- OUTSIDE RECORDS SUMMARY | 2022-06-30 10:57 | XMS_ITS | Encounter Summary ---
:1950 Author Organization [place] Address [facility] [place] [address] Care Team Providers Name Role Phone Ingrid Santana RN Unavailable Unavailable Momo Forbes Primary Care Provider Reason for Referral Consultation - Closed Specialty Diagnoses / Procedures Referred By Contact Refer red To Contact Diagnoses Morbid obesity due to excess calories (H) Deysi Alicea MD [facility] [address] [place] [phone] Referral ID Status Reason Start Date Expiration Date Visits Requ ested Visits Authorized [id number] Closed 09/02/2015 09/01/2016 1 1 UNTS RECEIVABLE REPRESENTATIVE Reason for Visit Reason Comments RECHECK Follow up Kidney TX 4 Encounter Details Date Type Department Care Team Description 09/02/2015 Office Visit Nephrology Deysi Alicea, S/P kidney transplant (Prima ry Dx); 2nd Floor, Clinic 2A Morbid obesity due to excess calories (H ) Tommy Wilburn [address] [place] [id number] [place] [address] (Wo rk) [phone] Social History Tobacco Use Types Packs/Day Years [...] Comments Blood Pressure 128/72 09/02/2015 4:32 PM ACCOUNTS RECEIVABLE REPRESENTATIVE Pulse 61 09/02/2015 4:32 PM ACCOUNTS RECEIVABLE REPRESENTATIVE Temperature 36.7 ??C (98 ??F) 09/02/2015 4:32 PM ACCOUNTS RECEIVABLE REPRESENTATIVE Respiratory Rate - - Oxygen Saturation 94% 09/02/2015 4:32 PM ACCOUNTS RECEIVABLE REPRESENTATIVE Inhaled Oxygen Concentration - - Weight 141.8 kg (312 lb 9.6 oz) 09/02/2015 4:32 PM ACCOUNTS RECEIVABLE REPRESENTATIVE Height 182.9 cm (6' 0.01) 09/02/2015 4:32 PM ACCOUNTS RECEIVABLE REPRESENTATIVE Body Mass Index 42.39 09/02/2015 4:32 PM ACCOUNTS RECEIVABLE REPRESENTATIVE documented in this encounter Progress Notes Deysi [...] discharged on Cumadin; Cumadin was stopped by locker attendant during the follow up visit, as [...] of Education: 14 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 BP completed using cuff size: large UNTS RECEIVABLE REPRESENTATIVE documented in this encounter Plan of [...] ) documented in this encounter Care Teams Beef Trimmer Relationship Specialty Start Date End Date Momo Forbes PCP - General Family Practice 01/02/14 [facility] [address] [place] [address] Ingrid Santana, RN Registered Nurse Transplant 02/10/12 documented as of this encounter
--- OUTSIDE RECORDS SUMMARY | 2022-06-30 10:57 | XMS_ITS | Encounter Summary ---
:1950 Author Organization [place] Address [address] [place] [address] Care Team Providers Name Role Phone Ingrid Santana RN Unavailable Unavailable Momo Forbes Primary Care Provider Joseph Quintana MD Unavailable Encounter Details Date Type Department Care Team Description 08/14/2015 External Order Results The Transplant Ce nter Nurse, [facility] 2nd Floor, Clinic [address]A [address] [phone] Social History Tobacco Use Types [...] 4:41 PM Results f or this RESULTS POSTDOCTORAL SCHOLAR procedure are i n the results section. documented in this encounter Results (ABNORMAL) TXP External Lab Result (08/12/2015 4:41 PM POSTDOCTORAL SCHOLAR) Analysis Performed At Patho logist Time Signature [...] 59 (L) >60 LABDE SCAN (if mL/min/1.7 Cook Islander) 3/m2 (External) GFR Estimated 48 (L) [...] / / Volume Laterality 08/12/2015 4:41 PM POSTDOCTORAL SCHOLAR Narrative JESSICA PFT - 08/14/2015 9:25 AM POSTDOCTORAL SCHOLAR Verified by Freddy Mehta on 08/14. Patient Reported LABORATORY Performing Organization Address City/State/ZIP Code Phon e Number [facility] LABDE SCAN documented in this encounter Visit Diagnoses Not on filedocumented in this encounter Care Teams Assembler Convertible Top Relationship Specialty Start Date End Date Momo Forbes PCP - General Family Practice 01/02/14 [facility] [address] [place] [address] Ingrid Santana, RN Registered Nurse Transplant 02/10/12 Joseph Quintana, Assigned Nephrology 03/29/21 MD Provider [address] [place] [address] [address] [place] [address] documented as of this encounter
--- OUTSIDE RECORDS SUMMARY | 2022-06-30 10:57 | XMS_ITS | Encounter Summary ---
:1950 Author Organization [place] Address [facility] [place] [address] Care Team Providers Name Role Phone Ingrid Santana RN Unavailable Unavailable Momo Forbes Primary Care Provider Reason for Visit Reason Onset Date Comments Transplant 12/31/2014 Encounter Details Date Type Department Care Team Description 12/31/2014 Telephone [facility] Transplant [facility] [address] [place] [phone] Social History Tobacco Use Types [...] filedocumented in this encounter Care Teams Coal Digger Relationship Specialty Start Date End Date Momo Forbes PCP - General Family Practice 01/02/14 [facility] [address] [place] [address] Ingrid Santana RN Registered Nurse Transplant 02/10/12 documented as of this encounter
--- OUTSIDE RECORDS SUMMARY | 2022-06-30 10:57 | XMS_ITS | Encounter Summary ---
:1950 Author Organization [place] Address [address] [place] [address] Care Team Providers Name Role Phone Ingrid Santana RN Unavailable Unavailable Momo Forbes Primary Care Provider Reason for Visit Reason Onset Date Comments Medication Question 10/11/2014 Encounter Details Date Type Department Care Team Description 10/11/2014 Telephone PHARMACY Beny Staton Geovanni Medication Question 500 [facility] [place] [address] PHARMACY [phone] [place] [address] Social History Tobacco Use Types [...] is 8 months post-transplant. Medication adherence plan: [employer]d pillbox Are you having any issues managing [...] he checks it. Beny Staton [facility] Specialty Pharmacist [phone] RING CHEF documented in this encounter Plan of Treatment Not on filedocumented as of this encounter Visit Diagnoses Not on filedocumented in this encounter Care Teams Dedicated Intermodal Truck Driver Relationship Specialty Start Date End Date Momo Forbes PCP - General Family Practice 01/02/14 [place] [id number] Ingrid Santana, RN Registered Nurse Transplant 02/10/12 documented as of this encounter
--- OUTSIDE RECORDS SUMMARY | 2022-06-30 10:57 | XMS_ITS | Encounter Summary ---
:1950 Author Organization [place] Address [facility] [place] [address] Care Team Providers Name Role Phone Ingrid Santana RN Unavailable Unavailable Momo Forbes Primary Care Provider Encounter Details Date Type Department Care Team Description 10/18/2014 External Order Results The Transplant Ce nter Nurse, [facility] 2nd Floor, Clinic [address]A [address] [phone] Social History Tobacco Use [...] 8:15 AM Results f or this RESULTS CORK SLABS SAWYER procedure are i n the results section. documented in this encounter Results (ABNORMAL) TXP External Lab Result (10/17/2014 8:15 AM CORK SLABS SAWYER) Analysis Performed At Patho logist Time Signature [...] 56 (L) >60 LABDE SCAN (if ml/min/1.7 Filipino) 3m2 (External) GFR Estimated 46 (L) >60 [...] / / Volume Laterality 10/17/2014 8:15 AM CORK SLABS SAWYER Narrative JESSICA PFT - 10/18/2014 8:50 AM CORK SLABS SAWYER Verified by Maribel Plunkett on 10/18/19 15. Patient Reported LABORATORY Performing Organization Address City/State/ZIP Code Phon e Number [facility] LABDE SCAN documented in this encounter Visit Diagnoses Not on filedocumented in this encounter Care Teams Hospital Attendant Relationship Specialty Start Date End Date Momo Forbes PCP - General Family Practice 01/02/14 [facility] [address] [place] [address] Ingrid Santana, RN Registered Nurse Transplant 02/10/12 documented as of this encounter
--- OUTSIDE RECORDS SUMMARY | 2022-06-30 10:57 | XMS_ITS | Encounter Summary ---
:1950 Author Organization [place] Address [address] [place] [address] Care Team Providers Name Role Phone Ingrid Santana RN Unavailable Unavailable Momo Forbes Primary Care Provider Encounter Details Date Type Department Care Team Description 09/22/2014 Orders Only [facility], [facility] [place] [address] [phone] [place] [address] [address] [place] [address] (Wo rk) Social History Tobacco [...] AM R esults for this MASS SPECTROMETRY SENIOR APPLICATIONS ARCHITECT procedure are in the results section. TACROLIMUS BY TANDEM Routine 10/03/2014 8:30 AM R esults for this MASS SPECTROMETRY SENIOR APPLICATIONS ARCHITECT procedure are in the results section. documented in this encounter Results Tacrolimus level (10/17/2014 8:15 AM SENIOR APPLICATIONS ARCHITECT) [facility] Method Time Signature Tacrolimus Last 2029 [facility] Dose 10/16/14 [facility] Tacrolimus 9.2 5.0 - [facility] Level 15.0 ug/L [facility] Comment: Tacrolimus Reference Range Kidney Transplant [...] / Volume Laterality 10/17/2014 8:15 AM 5 SENIOR APPLICATIONS ARCHITECT 11:17 AM SENIOR APPLICATIONS ARCHITECT Mingo Dangelo MD LAB - BLOOD ORDERABLES Performing Organization Address City/State/ZIP Code Phon e Number [facility] [address] [place], [place] [phone] [place] [address] Tacrolimus level (10/03/2014 8:30 AM SENIOR APPLICATIONS ARCHITECT) [facility] Method Time Signature Tacrolimus Last 10/02/14 [facility] Dose 2030 [facility] Tacrolimus 7.4 5.0 - [facility] 15.0 ug/L [facility] Comment: Tacrolimus Reference Range Kidney Transplant [...] / Volume Laterality 10/03/2014 8:30 AM 5 SENIOR APPLICATIONS ARCHITECT 11:09 AM SENIOR APPLICATIONS ARCHITECT Mingo Dangelo MD LAB - BLOOD ORDERABLES Performing Organization Address City/State/ZIP Code Phon e Number [facility] [address] [place], [place] [phone] [place] [address] documented in this encounter Visit Diagnoses Not on filedocumented in this encounter Care Teams Paver Layer Relationship Specialty Start Date End Date Momo Forbes PCP - General Family Practice 01/02/14 [facility] [address] [place] [address] Ingrid Santana, RN Registered Nurse Transplant 02/10/12 documented as of this encounter
--- OUTSIDE RECORDS SUMMARY | 2022-06-30 10:57 | XMS_ITS | Encounter Summary ---
:1950 Author Organization [place] Address [address] [place] [address]. [place] [address] Care Team Providers Name Role Phone Ingrid Santana RN Unavailable Unavailable Momo Forbes Primary Care Provider Encounter Details Date Type Department Care Team Description 08/29/2015 Orders Only The Transplant Deepa Morgan Aftercare following organ tr ansplant (Primary Dx); 2nd Floor, Clinic 2A S[facility]a Kidney replaced by transplan t; [facility] current use of medication [address] [phone] Social History Tobacco Use Types Packs/Day Years [...] edication documented in this encounter Care Teams Warehouse Engineer Relationship Specialty Start Date End Date Momo Forbes PCP - General Family Practice 01/02/14 [facility] [address] [place] [address] Ingrid Santana RN Registered Nurse Transplant 02/10/12 documented as of this encounter
--- OUTSIDE RECORDS SUMMARY | 2022-06-30 10:58 | XMS_ITS | Encounter Summary ---
:1950 Author Organization [place] Address [address] [place] [address] Care Team Providers Name Role Phone Ingrid Santana RN Unavailable Unavailable Momo Forbes Primary Care Provider Joseph Quintana MD Unavailable Encounter Details Date Type Department Care Team Description 07/17/2014 External Order Results The Transplant Ce nter Nurse, [facility] 2nd Floor, Clinic [address]A [address] [place] [address] Social History Tobacco Use Types [...] 8:28 AM Results f or this RESULTS CONSTRUCTION OPERATIONS MANAGER procedure are i n the results section. documented in this encounter Results (ABNORMAL) TXP External Lab Result (07/15/2014 8:28 AM CONSTRUCTION OPERATIONS MANAGER) Analysis Performed At Patho logist [...] 60 (L) >60 LABDE SCAN (if ml/min/1.7 Spanish) 3m2 (External) GFR Estimated 49 (L) >60 [...] / / Volume Laterality 07/15/2014 8:28 AM CONSTRUCTION OPERATIONS MANAGER Narrative JESSICA PFT - 07/17/2014 8:35 AM CONSTRUCTION OPERATIONS MANAGER Verified by Maribel Plunkett on 07/17/20 14. Patient Reported LABORATORY Performing Organization Address City/State/ZIP Code Phon e Number [facility] LABDE SCAN documented in this encounter Visit Diagnoses Not on filedocumented in this encounter Care Teams Retail Associate Manager Bilingual Relationship Specialty Start Date End Date Momo Forbes PCP - General Family Practice 01/02/14 [place] [address] Ingrid Santana, RN Registered Nurse Transplant 02/10/12 Joseph Quintana, Assigned Nephrology 03/29/21 MD Provider [address] [place] [phone] documented as of this encounter
--- OUTSIDE RECORDS SUMMARY | 2022-06-30 10:58 | XMS_ITS | Encounter Summary ---
:1950 Author Organization [place] Address [address] [place] [address] Care Team Providers Name Role Phone Ingrid Santana RN Unavailable Unavailable Momo Forbes Primary Care Provider Joseph Quintana MD Unavailable Encounter Details Date Type Department Care Team Description 07/03/2014 External Order Results The Transplant Ce nter Nurse, [facility] 2nd Floor, Clinic [address]A [address] [place] [address] Social History Tobacco Use Types [...] 8:27 AM Results f or this RESULTS CAN COVERER procedure are i n the results section. documented in this encounter Results (ABNORMAL) TXP External Lab Result (07/01/2014 8:27 AM CAN COVERER) Analysis Performed At Patho logist Time Signature [...] 57 (L) >60 LABDE SCAN (if ml/min/1.7 Mauritian) 3m2 (External) GFR Estimated 47 (L) >60 [...] / / Volume Laterality 07/01/2014 8:27 AM CAN COVERER Narrative JESSICA PFT - 07/03/2014 2:18 PM CAN COVERER Verified by Xiomara Bello on 07/03/20 14. Patient Reported LABORATORY Performing Organization Address City/State/ZIP Code Phon e Number [facility] LABDE SCAN documented in this encounter Visit Diagnoses Not on filedocumented in this encounter Care Teams Sheep Killer Relationship Specialty Start Date End Date Momo Forbes PCP - General Family Practice 01/02/14 [place] [id number] Ingrid Santana, RN Registered Nurse Transplant 02/10/12 Joseph Quintana, Assigned Nephrology 03/29/21 MD Provider [address] [place] [address] [phone] documented as of this encounter
--- OUTSIDE RECORDS SUMMARY | 2022-06-30 10:58 | XMS_ITS | Encounter Summary ---
:1950 Author Organization [place] Address [address] [place] [address] Care Team Providers Name Role Phone Ingrid Santana RN Unavailable Unavailable Momo Forbes Primary Care Provider Joseph Quintana MD Unavailable Encounter Details Date Type Department Care Team Description 07/10/2014 External Order Results The Transplant Ce nter Nurse, [facility] 2nd Floor, Clinic 2A [address] [place] [address] Social History Tobacco Use Types [...] 8:17 AM Results f or this RESULTS SEWER LINE PHOTO INSPECTOR procedure are i n the results section. documented in this encounter Results (ABNORMAL) TXP External Lab Result (07/08/2014 8:17 AM SEWER LINE PHOTO INSPECTOR) Analysis Performed At Patho logist Time [...] / / Volume Laterality 07/08/2014 8:17 AM SEWER LINE PHOTO INSPECTOR Narrative JESSICA PFT - 07/10/2014 6:20 AM SEWER LINE PHOTO INSPECTOR Verified by Janee Alexis on 07/10/2014 . Patient Reported LABORATORY Performing Organization Address City/State/ZIP Code Phon e Number [facility] LABDE SCAN documented in this encounter Visit Diagnoses Not on filedocumented in this encounter Care Teams Sales Exhibitor Relationship Specialty Start Date End Date Momo Forbes PCP - General Family Practice 01/02/[address] [address] Ingrid Santana, RN Registered Nurse Transplant 02/10/12 Joseph Quintana, Assigned Nephrology 03/29/21 MD Provider [address] [place] [address] documented as of this encounter
--- OUTSIDE RECORDS SUMMARY | 2022-06-30 10:58 | XMS_ITS | Encounter Summary ---
:1950 Author Organization [place] Address [address] [place] [address] Care Team Providers Name Role Phone Ingrid Santana RN Unavailable Unavailable Momo Forbes Primary Care Provider Joseph Quintana MD Unavailable Encounter Details Date Type Department Care Team Description 07/31/2014 External Order Results The Transplant Ce nter Nurse, [facility] 2nd Floor, Clinic [address]A [address] [phone] Social History Tobacco Use Types [...] 8:25 AM Results f or this RESULTS PHOTOVOLTAIC INSTALLER procedure are i n the results section. documented in this encounter Results (ABNORMAL) TXP External Lab Result (07/29/2014 8:25 AM PHOTOVOLTAIC INSTALLER) [facility] Method Time Signature Sodium (External) [...] / / Volume Laterality 07/29/2014 8:25 AM PHOTOVOLTAIC INSTALLER Narrative B[facility] PFT - 07/31/2014 2:47 PM PHOTOVOLTAIC INSTALLER Verified by Nazia Duncan on 07/31/2014. Verified by Freddy Mehta on 07/31. Patient Reported LABORATORY Performing Organization Address City/State/ZIP Code Phon e Number [facility] LABDE SCAN documented in this encounter Visit Diagnoses Not on filedocumented in this encounter Care Teams Analytical Lab Technician Relationship Specialty Start Date End Date Momo Forbes PCP - General Family Practice 01/02/14 [facility] [address] [place] [address] Ingrid Santana, RN Registered Nurse Transplant 02/10/12 Joseph Quintana, Assigned Nephrology 03/29/21 MD Provider [address] [place] [address] [address] [place], [place] [address] documented as of this encounter
--- OUTSIDE RECORDS SUMMARY | 2022-06-30 10:58 | XMS_ITS | Encounter Summary ---
:1950 Author Organization [place] Address [address] [place] [address] Care Team Providers Name Role Phone Ingrid Santana RN Unavailable Unavailable Momo Forbes Primary Care Provider Encounter Details Date Type Department Care Team Description 06/22/2014 Orders Only [facility], [facility] jm [place] [address] [phone] [place] [address] [address] [place] [address] (Wo rk) Social History Tobacco [...] AM R esults for this MASS SPECTROMETRY ETYMOLOGY TEACHER procedure are in the results section. TACROLIMUS BY TANDEM Routine 07/08/2014 8:15 AM R esults for this MASS SPECTROMETRY ETYMOLOGY TEACHER procedure are in the results section. TACROLIMUS BY TANDEM Routine 07/01/2014 8:25 AM R esults for this MASS SPECTROMETRY ETYMOLOGY TEACHER procedure are in the results section. TACROLIMUS BY TANDEM Routine 06/24/2014 8:30 AM R esults for this MASS SPECTROMETRY ETYMOLOGY TEACHER procedure are in the results section. documented in this encounter Results Tacrolimus level (07/15/2014 8:25 AM ETYMOLOGY TEACHER) [facility] gist Method Time Signature Tacrolimus Last 07/14/14 [facility] Dose 2000 [facility] Tacrolimus 8.1 5.0 - [facility] Level 15.0 ug/L [facility] [...] / Volume Laterality 07/15/2014 8:25 AM 4 ETYMOLOGY TEACHER 10:56 AM ETYMOLOGY TEACHER Deysi Alicea MD LAB - BLOOD ORDERABLES Performing Organization Address City/State/ZIP Code Phon e Number [facility] [address] [place] [address] [facility] Tacrolimus level (07/08/2014 8:15 AM ETYMOLOGY TEACHER) [facility] gist Method Time Signature Tacrolimus Last 2000 [facility] Dose 07/07/14 [facility] Tacrolimus 8.6 5.0 - [facility] Level 15.0 ug/L [facility] [...] / Volume Laterality 07/08/2014 8:15 AM 4 ETYMOLOGY TEACHER 11:03 AM ETYMOLOGY TEACHER Deysi Alicea MD LAB - BLOOD ORDERABLES Performing Organization Address City/State/ZIP Code Phon e Number [facility] [address] [place] [address] [facility] Tacrolimus level (07/01/2014 8:25 AM ETYMOLOGY TEACHER) [facility] gist Method Time Signature Tacrolimus Last 1999, [facility] Dose 06/30/14 [facility] Tacrolimus 9.3 5.0 - [facility] Level 15.0 ug/L [facility] Comment: Tacrolimus Reference Range Kidney Transplant Pediatric [...] / Volume Laterality 07/01/2014 8:25 AM 4 ETYMOLOGY TEACHER 12:11 PM ETYMOLOGY TEACHER Mingo Dangelo MD LAB - BLOOD ORDERABLES Performing Organization Address City/State/ZIP Code Phon e Number [facility] [address] [place] [address] [facility] Tacrolimus level (06/24/2014 8:30 AM ETYMOLOGY TEACHER) [facility] gist Method Time Signature Tacrolimus Last 1999 [facility] Dose 06/23/14 [facility] Tacrolimus 10.5 5.0 - [facility] [...] / Volume Laterality 06/24/2014 8:30 AM 4 ETYMOLOGY TEACHER 11:18 AM ETYMOLOGY TEACHER Deysi Alicea MD LAB - BLOOD ORDERABLES Performing Organization Address City/State/ZIP Code Phon e Number [facility] [address] [place] [address] [facility] documented in this encounter Visit Diagnoses Not on filedocumented in this encounter Care Teams Tool Design Draftsperson Relationship Specialty Start Date End Date Momo Forbes PCP - General Family Practice 01/02/14 [facility] [address] [place] [address] Ingrid Santana, RN Registered Nurse Transplant 02/10/12 documented as of this encounter
--- OUTSIDE RECORDS SUMMARY | 2022-06-30 10:58 | XMS_ITS | Encounter Summary ---
:1950 Author Organization [place] Address [address] [place] [address] Care Team Providers Name Role Phone Ingrid Santana RN Unavailable Unavailable Momo Forbes Primary Care Provider Joseph Quintana MD Unavailable Encounter Details Date Type Department Care Team Description 08/06/2014 External Order Results The Transplant Ce nter Nurse, [facility] 2nd Floor, Clinic [address]A [address] [place] [address] Social History Tobacco Use Types [...] 8:39 AM Results f or this RESULTS NIPPLE MAKER procedure are i n the results section. documented in this encounter Results (ABNORMAL) TXP External Lab Result (08/05/2014 8:39 AM NIPPLE MAKER) Analysis Performed At Patho logist Time [...] Citizen Of [place]) 3m2 (External) GFR Estimated 45 (L) >60 [...] / / Volume Laterality 08/05/2014 8:39 AM NIPPLE MAKER Narrative JESSICA PFT - 08/06/2014 7:40 AM NIPPLE MAKER Verified by Mary Whitehead on 08/06/2014. Patient Reported LABORATORY Performing Organization Address City/State/ZIP Code Phon e Number [facility] LABDE SCAN documented in this encounter Visit Diagnoses Not on filedocumented in this encounter Care Teams Radiographer Angiogram Relationship Specialty Start Date End Date Momo Forbes PCP - General Family Practice 01/02/[address] [id number] Ingrid Santana, RN Registered Nurse Transplant 02/10/12 Joseph Quintana, Assigned Nephrology 03/29/21 MD Provider [address] [place] [address] documented as of this encounter
--- OUTSIDE RECORDS SUMMARY | 2022-06-30 10:58 | XMS_ITS | Encounter Summary ---
:1950 Author Organization [place] Address [address] [place] [address] Care Team Providers Name Role Phone Ingrid Santana RN Unavailable Unavailable Momo Forbes Primary Care Provider Joseph Quintana MD Unavailable Encounter Details Date Type Department Care Team Description 05/27/2014 External Order Results The Transplant Ce nter Nurse, [facility] 2nd Floor, Clinic [address]A [address] [place] [address] Social History Tobacco Use Types [...] (if ml/min/1.7 Croatian) 3m2 (External) GFR Estimated 52 (L) >60 [...] filedocumented in this encounter Care Teams Secondary School Registrar Relationship Specialty Start Date End Date Momo Forbes PCP - General Family Practice 01/02/14 [facility] 1999 [place], [place] [id number] Ingrid Santana, RN Registered Nurse Transplant 02/10/12 Joseph Quintana, Assigned Nephrology 03/29/21 MD Provider [address] [place] [id number] documented as of this encounter
--- OUTSIDE RECORDS SUMMARY | 2022-06-30 10:58 | XMS_ITS | Encounter Summary ---
:1950 Author Organization [place] Address [address] [place] [address] Care Team Providers Name Role Phone Ingrid Santana RN Unavailable Unavailable Momo Forbes Primary Care Provider Joseph Quintana MD Unavailable Encounter Details Date Type Department Care Team Description 05/16/2014 External Order Results The Transplant Ce nter Nurse, [facility] 2nd Floor, Clinic [address]A [address] [place] [address] Social History Tobacco Use Types [...] Estimated >60 >60 LABDE SCAN (if ml/min/1.7 Bahraini) 3m2 (External) GFR Estimated 52 (L) >60 [...] on filedocumented in this encounter Care Teams Strategy Director Relationship Specialty Start Date End Date Momo Forbes PCP - General Family Practice 01/02/14 [facility] [address] [place] [address] Ingrid Santana, RN Registered Nurse Transplant 02/10/12 Joseph Quintana, Assigned Nephrology 03/29/21 MD Provider [address] [place] [place] [address] documented as of this encounter
--- OUTSIDE RECORDS SUMMARY | 2022-06-30 10:58 | XMS_ITS | Encounter Summary ---
:1950 Author Organization [place] Address [address] [place] [address] Care Team Providers Name Role Phone Ingrid Santana RN Unavailable Unavailable Momo Forbes Primary Care Provider Joseph Quintana MD Unavailable Encounter Details Date Type Department Care Team Description 08/28/2014 External Order Results The Transplant Ce nter Nurse, [facility] 2nd Floor, Clinic [address]A [address] [place] [address] Social History Tobacco Use Types [...] 08/26/2014 10:25 AM Results for this RESULTS SYNTHETIC RESIN OPERATOR procedure are i n the results section. documented in this encounter Results (ABNORMAL) TXP External Lab Result (08/26/2014 10:25 AM SYNTHETIC RESIN OPERATOR) Analysis Performed At Patho logist Time [...] 58 (L) >60 LABDE SCAN (if ml/min/1.7 Cuban) 3m2 (External) GFR Estimated 48 (L) >60 [...] / / Volume Laterality 08/26/2014 10:25 AM SYNTHETIC RESIN OPERATOR Narrative [facility] PFT - 08/28/2014 4:34 PM SYNTHETIC RESIN OPERATOR Verified by Freddy Mehta on 08/28. Patient Reported LABORATORY Performing Organization Address City/State/ZIP Code Phon e Number [facility] LABDE SCAN documented in this encounter Visit Diagnoses Not on filedocumented in this encounter Care Teams Combat Systems Operator Relationship Specialty Start Date End Date Momo Forbes PCP - General Family Practice 01/02/14 [facility] [address] [place] [address] Ingrid Santana, RN Registered Nurse Transplant 02/10/12 Joseph Quintana, Assigned Nephrology 03/29/21 MD Provider [address] [facility] [address] [place] [address] documented as of this encounter
--- OUTSIDE RECORDS SUMMARY | 2022-06-30 10:58 | XMS_ITS | Encounter Summary ---
:1950 Author Organization [place] Address [facility] [place] [facility] [place] [address] Care Team Providers Name Role Phone Ingrid Santana RN Unavailable Unavailable Momo Forbes Primary Care Provider Encounter Details Date Type Department Care Team Description 06/10/2014 External Order Results The Transplant Ce nter Nurse, [facility] 2nd Floor, Clinic [address]A [address] [phone] Social History Tobacco Use Types [...] 60 (L) >60 LABDE SCAN (if ml/min/1.7 Bahamian) 3m2 (External) GFR Estimated 49 (L) >60 [...] on filedocumented in this encounter Care Teams Bone Char Operator Relationship Specialty Start Date End Date Momo Forbes PCP - General Family Practice 01/02/14 [facility] [address] [place] [address] Ingrid Santana, RN Registered Nurse Transplant 02/10/12 documented as of this encounter
--- OUTSIDE RECORDS SUMMARY | 2022-06-30 10:58 | XMS_ITS | Encounter Summary ---
:1950 Author Organization [place] Address [facility] [address] Care Team Providers Name Role Phone Ingrid Santana RN Unavailable Unavailable Momo Forbes Primary Care Provider Encounter Details Date Type Department Care Team Description 05/27/2014 Orders Only Nephrology Shiva aKhn RN -donor kidney 2nd Floor, Clinic 2A [facility] transplant recipient Tommy Ruizfelisa [address] [place] [phone] Social History Tobacco Use Types Packs/Day Years [...] transplant documented in this encounter Care Teams Litharge Mill Operator Relationship Specialty Start Date End Date Momo Forbes PCP - General Family Practice 01/02/[address] [address] Ingrid Santana RN Registered Nurse Transplant 02/10/12 documented as of this encounter
--- OUTSIDE RECORDS SUMMARY | 2022-06-30 10:58 | XMS_ITS | Encounter Summary ---
:1950 Author Organization [place] Address [address] [place] [address] Care Team Providers Name Role Phone Ingrid Santana RN Unavailable Unavailable Momo Forbes Primary Care Provider Joseph Quintana MD Unavailable Encounter Details Date Type Department Care Team Description 06/08/2014 External Order Results The Transplant Ce nter Nurse, [facility] 2nd Floor, Clinic 2A [address] [place] [address] Social History Tobacco Use [...] External Lab Result (06/05/2014 8:30 AM CDT) [facility] Method Time Signature Sodium (External) [...] filedocumented in this encounter Care Teams Telephone Appointment Clerk Relationship Specialty Start Date End Date Momo Forbes PCP - General Family Practice 01/02/14 [facility] [address] [place] [address] Ingrid Santana, RN Registered Nurse Transplant 02/10/12 Joseph Quintana, Assigned Nephrology 03/29/21 MD Provider [address] [place] [address] [address] [place] [address] documented as of this encounter
--- OUTSIDE RECORDS SUMMARY | 2022-06-30 10:58 | XMS_ITS | Encounter Summary ---
:1950 Author Organization [place] Address [facility] [place] [address] Care Team Providers Name Role Phone Ingrid Santana RN Unavailable Unavailable Momo Forbes Primary Care Provider Encounter Details Date Type Department Care Team Description 06/17/2014 External Order Results The Transplant Ce nter Nurse, [facility] 2nd Floor, Clinic [address]A [address] [phone] Social History Tobacco Use [...] 57 (L) >60 LABDE SCAN (if ml/min/1.7 Honduran) 3m2 (External) GFR Estimated 47 (L) >60 [...] filedocumented in this encounter Care Teams Furnace Charger Relationship Specialty Start Date End Date Momo Forbes PCP - General Family Practice 01/02/14 [facility] [address] [place] [phone] Ingrid Santana, RN Registered Nurse Transplant 02/10/12 documented as of this encounter
--- OUTSIDE RECORDS SUMMARY | 2022-06-30 10:58 | XMS_ITS | Encounter Summary ---
:1950 Author Organization [place] Address [facility] [place] [address] Care Team Providers Name Role Phone Ingrid Santana RN Unavailable Unavailable Momo Forbes Primary Care Provider Encounter Details Date Type Department Care Team Description 05/17/2014 Orders Only Nephrology Shiva Kahn RN -donor kidney 2nd Floor, Clinic 2A [facility] transplant recipient Tommy Ruizfelisa [address] [place] [address] (Primary Dx) Building [address] [place] [phone] Social History Tobacco Use Types Packs/Day Years [...] transplant documented in this encounter Care Teams Editor Managing Director Relationship Specialty Start Date End Date Momo Forbes PCP - General Family Practice 01/02/[address] [address] Ingrid Santana RN Registered Nurse Transplant 02/10/12 documented as of this encounter
--- OUTSIDE RECORDS SUMMARY | 2022-06-30 10:58 | XMS_ITS | Encounter Summary ---
:1950 Author Organization [place] Address [facility] [place] [address] Care Team Providers Name Role Phone Ingrid Santana RN Unavailable Unavailable Momo Forbes Primary Care Provider Encounter Details Date Type Department Care Team Description 05/20/2014 External Order Results The Transplant Ce nter Nurse, [facility] 2nd Floor, Clinic [address]A [address] [address] Social History Tobacco Use Types [...] 55 (L) >60 LABDE SCAN (if ml/min/1.7 Filipino) [...] on filedocumented in this encounter Care Teams Vocal Teacher Relationship Specialty Start Date End Date Momo Forbes PCP - General Family Practice 01/02/14 [facility] [address] [place], [place] [phone] Ingrid Santana, RN Registered Nurse Transplant 02/10/12 documented as of this encounter
--- OUTSIDE RECORDS SUMMARY | 2022-06-30 10:58 | XMS_ITS | Encounter Summary ---
:1950 Author Organization [place] Address Counts include 234 beds at the [facility]0 [facility] [place] [address] Care Team Providers Name Role Phone Ingrid Santana RN Unavailable Unavailable Momo Forbes Primary Care Provider Encounter Details Date Type Department Care Team Description 08/03/2014 Abstract The Transplant [facility] 2nd Floor, Clinic 2A [address] [phone] Social History Tobacco Use [...] filedocumented in this encounter Care Teams Research Executive Relationship Specialty Start Date End Date Momo Forbes PCP - General Family Practice 01/02/14 [facility] [address] [place] [address] Ingrid Santana, RN Registered Nurse Transplant 02/10/12 documented as of this encounter
--- OUTSIDE RECORDS SUMMARY | 2022-06-30 10:58 | XMS_ITS | Encounter Summary ---
:1950 Author Organization [place] Address [address] [place] [address] Care Team Providers Name Role Phone Ingrid Santana RN Unavailable Unavailable Momo Forbes Primary Care Provider Joseph Quintana MD Unavailable Encounter Details Date Type Department Care Team Description 06/24/2014 External Order Results The Transplant Ce nter Nurse, [facility] 2nd Floor, Clinic 2A [address] [place] [address] Social History Tobacco Use Types [...] 8:37 AM Results f or this RESULTS FILE MACHINE OPERATOR procedure are i n the results section. documented in this encounter Results (ABNORMAL) TXP External Lab Result (06/24/2014 8:37 AM FILE MACHINE OPERATOR) Analysis Performed At Patho logist [...] 54 (L) >60 LABDE SCAN (if ml/min/1.7 Salvadorean) 3m2 (External) GFR Estimated 44 (L) >60 [...] / / Volume Laterality 06/24/2014 8:37 AM FILE MACHINE OPERATOR Narrative JESSICA PFT - 06/24/2014 2:52 PM FILE MACHINE OPERATOR Verified by Sofie Verdin on 4. Patient Reported LABORATORY Performing Organization Address City/State/ZIP Code Phon e Number [facility] LABDE SCAN documented in this encounter Visit Diagnoses Not on filedocumented in this encounter Care Teams Stick Feeder Relationship Specialty Start Date End Date Momo Forbes PCP - General Family Practice 01/02/14 [place] [phone] Ingrid Santana, RN Registered Nurse Transplant 02/10/12 Joseph Quintana, Assigned Nephrology 03/29/21 MD Provider [address] [place] [address] documented as of this encounter
--- OUTSIDE RECORDS SUMMARY | 2022-06-30 10:58 | XMS_ITS | Encounter Summary ---
:1950 Author Organization [place] Address [address] [place] [address] Care Team Providers Name Role Phone Ingrid Santana RN Unavailable Unavailable Momo Forbes Primary Care Provider Encounter Details Date Type Department Care Team Description 08/22/2014 Orders Only [facility], Joseph Conor [facility] [place] 500 [facility] [address] [place] [phone] [place] [address] 534 [place] [address] (Wo rk) Social History Tobacco [...] Res ults for this MASS SPECTROMETRY AM MANUFACTURING MAINTENANCE MECHANIC procedure are in the results section. documented in this encounter Results Tacrolimus level (08/26/2014 10:21 AM MANUFACTURING MAINTENANCE MECHANIC) [facility] Method Time Signature Tacrolimus Last 08/25/14 [facility] Dose 2030 [facility] Tacrolimus 6.6 5.0 - [facility] Level [...] perform ance characteristics determined by the [facility], [...] / Volume Laterality 08/26/2014 10:21 08/28/2014 AM MANUFACTURING MAINTENANCE MECHANIC 11:34 AM MANUFACTURING MAINTENANCE MECHANIC Mingo Dangelo MD LAB - BLOOD ORDERABLES Performing Organization Address City/State/ZIP Code Phon e Number [facility] [address] documented in this encounter Visit Diagnoses Not on filedocumented in this encounter Care Teams Putty Remover Relationship Specialty Start Date End Date Momo Forbes PCP - General Family Practice 01/02/14 [facility] 1999 [place] [address] Ingrid Santana, RN Registered Nurse Transplant 02/10/12 documented as of this encounter
--- OUTSIDE RECORDS SUMMARY | 2022-06-30 10:58 | XMS_ITS | Encounter Summary ---
:1950 Author Organization [place] Address [address] [place] [address] Care Team Providers Name Role Phone Ingrid Santana RN Unavailable Unavailable Momo Forbes Primary Care Provider Encounter Details Date Type Department Care Team Description 05/22/2014 Orders Only [facility], [facility] Con[facility], [facility] jm [place] [address] [phone] [place] [address] 085 [place] [address] (Wo rk) Social History Tobacco [...] (06/17/2014 8:05 AM CDT) [facility] gist Method Time Signature Tacrolimus Last 06/16/14 [facility] Dose 2000 [facility] Tacrolimus 6.5 5.0 - [facility] Level 15.0 ug/L [facility] Comment: Tacrolimus Reference Range Kidney Transplant [...] Phon e Number [facility] 500 [place] [address] [facility] Tacrolimus level (06/10/2014 7:52 AM CDT) [facility] gist Method Time Signature Tacrolimus Last 1999 [facility] Dose 06/09/14 [facility] Tacrolimus 7.9 5.0 - [facility] Level 15.0 ug/L [facility] Comment: Tacrolimus Reference Range Kidney Transplant [...] Phon e Number [facility] 500 [place] [address] [facility] Tacrolimus level (06/05/2014 8:28 AM CDT) [facility] gist Method Time Signature Tacrolimus Last 1999 [facility] Dose 06/04/14 [facility] Tacrolimus 7.9 5.0 - [facility] Level 15.0 ug/L [facility] Comment: Tacrolimus Reference Range Kidney Transplant [...] City/[facility]/ZIP Code Phon e Number [facility] [address] LABS Tacrolimus level (05/24/2014 8:05 AM CDT) [facility] gist Method Time Signature Tacrolimus 05/23/14 [facility] Last Dose 20:00 [facility] Tacrolimus Test 5.0 - [facility] Level canceled - 15.0 ug/L [place] Lab order [facility]US LABS entry error Specimen Anatomical Collection Method Collection Time Receive d Time (Source) Location / / Volume Laterality 05/24/2014 8:05 AM 4 2:49 CDT PM CDT Deysi Alicea MD LAB - BLOOD ORDERABLES Performing Organization Address City/[facility]/ZIP Code Phon e Number [facility] [address] LABS Tacrolimus level (05/24/2014 8:05 AM CDT) [facility] gist Method Time Signature Tacrolimus Last 05/23/14 [facility] Dose 20:00 [facility] Tacrolimus 5.8 5.0 - [facility] Level 15.0 ug/L [facility] Comment: Tacrolimus Reference Range Kidney Transplant [...] Phon e Number [facility] [address] LABS documented in this encounter Visit Diagnoses Not on filedocumented in this encounter Care Teams Assembler Trim Relationship Specialty Start Date End Date Momo Forbes PCP - General Family Practice 01/02/14 [facility] [address] [place] [address] Ingrid Santana, RN Registered Nurse Transplant 02/10/12 documented as of this encounter
--- OUTSIDE RECORDS SUMMARY | 2022-06-30 10:58 | XMS_ITS | Encounter Summary ---
:1950 Author Organization [place] Address Count includes the [facility] [place] [address] Care Team Providers Name Role Phone Ingrid Santana RN Unavailable Unavailable Momo Forbes Primary Care Provider Reason for Visit Reason Onset Date Comments Transplant 06/20/2014 FK 6.6 Encounter Details Date Type Department Care Team Description 06/20/2014 Telephone Nephrology Carmelita Rosario, Transplant (FK 6.6) 2nd Floor, Clinic 2A [place] [phone] Social History Tobacco Use Types Packs/Day [...] transplant documented in this encounter Care Teams Inspector Fibrous Wallboard Relationship Specialty Start Date End Date Momo Forbes PCP - General Family Practice 01/02/[address] [address] Ingrid Santana, RN Registered Nurse Transplant 02/10/12 documented as of this encounter
--- OUTSIDE RECORDS SUMMARY | 2022-06-30 10:58 | XMS_ITS | Encounter Summary ---
:1950 Author Organization [place] Address [facility] [place] [address] Care Team Providers Name Role Phone Ingrid Santana RN Unavailable Unavailable Momo Forbes Primary Care Provider Encounter Details Date Type Department Care Team Description 06/07/2014 External Order Results The Transplant Ce nter Nurse, [facility] 2nd Floor, Clinic [address]A [address] [phone] Social History Tobacco Use Types [...] External Lab Result (06/05/2014 8:30 AM CDT) [facility] Method Time Signature Sodium (External) 138 135 [...] on filedocumented in this encounter Care Teams Pasteurizing Supervisor Relationship Specialty Start Date End Date Momo Forbes PCP - General Family Practice 01/02/14 [facility] [address] [place] [address] Ingrid Santana, RN Registered Nurse Transplant 02/10/12 2 documented as of this encounter
--- OUTSIDE RECORDS SUMMARY | 2022-06-30 10:58 | XMS_ITS | Encounter Summary ---
:1950 Author Organization [place] Address [address] [place] [address] Care Team Providers Name Role Phone Ingrid Santana RN Unavailable Unavailable Momo Forbes Primary Care Provider Reason for Visit Reason Onset Date Comments Medication Question 07/26/2014 Encounter Details Date Type Department Care Team Description 07/26/2014 Telephone PHARMACY Duncan, Fina, RPH Medication Question 500 [facility] [place] [address] 715 [facility] [phone] [place] [address] Social History Tobacco Use Types [...] healthy and happy Beny Staton [facility] Specialty Pharmacist [phone] CUP FILLER documented in this encounter Plan of Treatment Not on filedocumented as of this encounter Visit Diagnoses Not on filedocumented in this encounter Care Teams Local Owner Operator Truck Driver Relationship Specialty Start Date End Date Momo Forbes PCP - General Family Practice 01/02/14 [facility] [address] [place] [address] Ingrid Santana, RN Registered Nurse Transplant 02/10/12 documented as of this encounter
--- OUTSIDE RECORDS SUMMARY | 2022-06-30 10:58 | XMS_ITS | Encounter Summary ---
:1950 Author Organization [place] Address [address] [place] [address] Care Team Providers Name Role Phone Ingrid Santana RN Unavailable Unavailable Momo Forbes Primary Care Provider Encounter Details Date Type Department Care Team Description 07/22/2014 Orders Only [facility], Joseph Conor [facility], [facility] 500 [facility] [address] [place] [address] [phone] [place] [address] 899 [place] [address] (Wo rk) Social History Tobacco [...] AM Resul ts for this SINGLE ANTIGEN TIRE FINISHER procedure are in the results section. HLA LUKASZ CLASS I Routine 07/29/2014 8:20 AM Result s for this SINGLE ANTIGEN TIRE FINISHER procedure are in the results section. TACROLIMUS BY TANDEM Routine 07/29/2014 8:20 AM R esults for this MASS SPECTROMETRY TIRE FINISHER procedure are in the results section. TACROLIMUS BY TANDEM Routine 07/22/2014 8:20 AM R esults for this MASS SPECTROMETRY TIRE FINISHER procedure are in the results section. documented in this encounter Results HLA Lukasz Class II Single Antigen (07/29/2014 8:20 AM TIRE FINISHER) [facility] Method Time Signature SA2 Test SA HI [...] Volume Laterality 07/29/2014 8:20 AM 4 3:26 TIRE FINISHER PM TIRE FINISHER Deysi Alicea MD LAB - IMMUNOLOGY ORDERABLES Performing Organization Address [facility] Phon e Number U HLA [facility]ORATORY Immunology/Histocompatabil [place], [place] [address] [facility] 500 [facility], Room 3-580 HISTOTRAC HLA Lukasz Class I Single Antigen (07/29/2014 8:20 AM TIRE FINISHER) [employer] Method Time Signature SA1 Test SA HI [...] Volume Laterality 07/29/2014 8:20 AM 4 3:26 TIRE FINISHER PM TIRE FINISHER Deysi Alicea MD LAB - IMMUNOLOGY ORDERABLES Performing Organization Address [facility] Phon e Number [facility] Immunology/Histocompatabil [place], [place] [address] [facility] 500 [facility] [address] Building, Room 3-580 HISTOTRAC Tacrolimus level (07/29/2014 8:20 AM TIRE FINISHER) [facility] gist Method Time Signature Tacrolimus Last 1999 [facility] Dose 07/28/14 [facility] Tacrolimus 10.5 5.0 - [facility] Level 15.0 ug/L [place] [...] / Volume Laterality 07/29/2014 8:20 AM 4 TIRE FINISHER 11:17 AM TIRE FINISHER Deysi Alicea MD LAB - BLOOD ORDERABLES Performing Organization Address City/State/ZIP Code Phon e Number [facility] 500 [place] [address] [facility] Tacrolimus level (07/22/2014 8:20 AM TIRE FINISHER) [facility] gist Method Time Signature Tacrolimus Last 1929 [facility] Dose 07/21/14 [facility] Tacrolimus 10.8 5.0 - [facility] Level 15.0 ug/L [place] [...] / Volume Laterality 07/22/2014 8:20 AM 4 TIRE FINISHER 11:45 AM TIRE FINISHER Deysi Alicea MD LAB - BLOOD ORDERABLES Performing Organization Address City/State/ZIP Code Phon e Number [facility] 500 [place] [address] [facility] documented in this encounter Visit Diagnoses Not on filedocumented in this encounter Care Teams Vp Of Technology Relationship Specialty Start Date End Date Momo Forbes PCP - General Family Practice 01/02/14 [facility] 1999 [place] [address] Ingrid Santana, RN Registered Nurse Transplant 02/10/12 documented as of this encounter
--- OUTSIDE RECORDS SUMMARY | 2022-06-30 10:58 | XMS_ITS | Encounter Summary ---
:1950 Author Organization [place] Address [address] [place] [address] Care Team Providers Name Role Phone Ingrid Santana RN Unavailable Unavailable Momo Forbes Primary Care Provider Reason for Visit Reason Onset Date Comments Transplant 08/08/2014 immunosuppression ma neil Encounter Details Date Type Department Care Team Description 08/08/2014 Refill Nephrology Shiva Kahn, packager and strapper 2nd Floor, Clinic 2A [facility] (immunosuppression Sanders Wangensteen [address] [place] [address] management) Building [address] [place] [phone] Social History Tobacco Use Types Packs/Day Years [...] to lower Prograf dose to 1.5mg BID. BUS DRIVER/GUIDE Telephone Encounter - Shiva Kahn RN - 08/08/2014 5:33 PM CST ISSUE: Tacrolimus level 9.0. New target tacrolimus levels 6-8 since patient is now 6 months post kidney transplant. PLAN: Decrease Prograf dose from 2 mg twice daily to 1.5 mg twice daily. TASK: Please call patient with instructions for dose change. BUS DRIVER/GUIDE documented in this encounter Plan of Treatment Not on filedocumented as of this encounter Visit Diagnoses Diagnosis -donor kidney transplant recipie nt - Primary Kidney replaced by transplant documented in this encounter Care Teams Government Service Executive Relationship Specialty Start Date End Date Momo Forbes PCP - General Family Practice 01/02/14 [place] [phone] Ingrid Santana, RN Registered Nurse Transplant 02/10/12 documented as of this encounter
--- OUTSIDE RECORDS SUMMARY | 2022-06-30 10:58 | XMS_ITS | Encounter Summary ---
:1950 Author Organization [place] Address [address] [place] [address] Care Team Providers Name Role Phone Ingrid Santana RN Unavailable Unavailable Momo Forbes Primary Care Provider Joseph Quintana MD Unavailable Encounter Details Date Type Department Care Team Description 07/25/2014 External Order Results The Transplant Ce nter Nurse, [facility] 2nd Floor, Clinic [address]A [address] [place] [address] Social History Tobacco Use Types [...] 8:22 AM Results f or this RESULTS PARKING LOT MANAGER procedure are i n the results section. documented in this encounter Results (ABNORMAL) TXP External Lab Result (07/22/2014 8:22 AM PARKING LOT MANAGER) Analysis Performed At Patho logist Time [...] 52 (L) >60 LABDE SCAN (if ml/min/1.7 Bermudian) 3m2 (External) GFR Estimated 43 (L) >60 [...] / / Volume Laterality 07/22/2014 8:22 AM PARKING LOT MANAGER Narrative JESSICA PFT - 07/25/2014 6:19 AM PARKING LOT MANAGER Verified by Janee Alexis on 07/25/2014 . Patient Reported LABORATORY Performing Organization Address City/State/ZIP Code Phon e Number [facility] documented in this encounter Visit Diagnoses Not on filedocumented in this encounter Care Teams Wood Fuel Pelletizer Relationship Specialty Start Date End Date Momo Forbes PCP - General Family Practice 01/02/14 [facility] 1999 [place] [phone] Ingrid Santana, RN Registered Nurse Transplant 02/10/12 Joseph Quintana, Assigned Nephrology 03/29/21 MD Provider [address] [place] [address] documented as of this encounter
--- OUTSIDE RECORDS SUMMARY | 2022-06-30 10:59 | XMS_ITS | Encounter Summary ---
:1950 Author Organization [place] Address [address] [facility] [place] [address] Care Team Providers Name Role Phone Ingrid Santana RN Unavailable Unavailable Momo Forbes Primary Care Provider Reason for Visit Auth/Cert - Closed Specialty Diagnoses / Procedures Referred By Contact Refer red To Contact Surgery Diagnoses S/P Kidney Transplant Uu Periop Procedures COMBINED CYSTOSCOPY, REMOVE STENT(S) 500 [place] [address] Phone: Fax: Referral ID Status Reason Start Date Expiration Date Visits Requ ested Visits Authorized [id number] Closed 1 1 Encounter Details Date Type Department Care Team Description 04/01/2014 Anesthesia Event [facility] Clari Torres MD PeriOp Services [facility] ANESTHESIA 500 [place] [address] [place] [address] [place], [place] 407464 (Wo rk) Anesthesia Record Procedure Summary Procedure [...] benefits and alternatives discussed with: patient or promotions representative. I agree with the plan written [...] Intra-op documented in this encounter Care Teams Senior Designer Relationship Specialty Start Date End Date Momo Forbes PCP - General Family Practice 01/02/14 [place] [phone] Ingrid Santana, RN Registered Nurse Transplant 02/10/12 documented as of this encounter
--- OUTSIDE RECORDS SUMMARY | 2022-06-30 10:59 | XMS_ITS | Encounter Summary ---
:1950 Author Organization [place] Address [facility] [place] [address] Care Team Providers Name Role Phone Ingrid Santana RN Unavailable Unavailable Momo Forbes Primary Care Provider Reason for Visit Reason Onset Date Comments Pre Visit Planning - Done 05/13/2014 6 week f/u pos t op afib. medication changes last visit. Encounter Details Date Type Department Care Team Description 05/13/2014 PRE VISIT [facility] [address] Pre Visit Planning - Physicians Orestes Hernandez MD Done (6 week f/u post [facility] op afib. medication Building MAULDIN changes last visit. ) 4th Floor, Clinic 4B [address] [phone] (Wo rk) [address] [phone] Social History Tobacco Use Types Packs/Day Years [...] filedocumented in this encounter Care Teams Delivery Manager Relationship Specialty Start Date End Date Momo Forbes PCP - General Family Practice 01/02/[address] [address] Ingrid Santana, RN Registered Nurse Transplant 02/10/12 documented as of this encounter
--- OUTSIDE RECORDS SUMMARY | 2022-06-30 10:59 | XMS_ITS | Encounter Summary ---
:1950 Author Organization [place] Address [facility] [place] [address] Care Team Providers Name Role Phone Ingrid Santana RN Unavailable Unavailable Momo Forbes Primary Care Provider Reason for Visit Reason Onset Date Comments Anticoagulation 04/01/2014 Encounter Details Date Type Department Care Team Description 04/01/2014 Telephone [facility] Joseph Levine , Anticoagulation Anticoagulation Clin ic [facility] 420 [place], [place] [phone] [facility] [phone] [place] [address] [place] [address] (Wo rk) Social History Tobacco Use Types Packs/Day Years Used Date Smoking Tobacco: Former Cigars Quit : 08/22/2006 Smokeless Tobacco: Never Alcohol Use Standard Drinks/Week Comments Yes 0 (1 standard drink = 0.6 oz pure alcoho l) occasional drink. Sex Assigned at Date Recorded Not on file documented as of this encounter Miscellaneous Notes Telephone Encounter - Joseph Levine, [facility] - 04/01/2014 5:22 PM CDT [...] on filedocumented in this encounter Care Teams Coordinating Producer Relationship Specialty Start Date End Date Momo Forbes PCP - General Family Practice 01/02/14 [place] [phone] Ingrid Santana, RN Registered Nurse Transplant 02/10/12 documented as of this encounter
--- OUTSIDE RECORDS SUMMARY | 2022-06-30 10:59 | XMS_ITS | Encounter Summary ---
:1950 Author Organization [place] Address [facility] [place] [address] Care Team Providers Name Role Phone Ingrid Santana RN Unavailable Unavailable Momo Forbes Primary Care Provider Encounter Details Date Type Department Care Team Description 05/02/2014 Orders Only Nephrology Shiva Kahn RN -donor kidney 2nd Floor, Clinic 2A [facility] transplant recipient Tommy Ruizfelisa [address] [place] [phone] Social History Tobacco Use Types Packs/Day Years [...] transplant documented in this encounter Care Teams Garment Alteration Examiner Relationship Specialty Start Date End Date Momo Forbes PCP - General Family Practice 01/02/[address] [address] Ingrid Santana RN Registered Nurse Transplant 02/10/12 documented as of this encounter
--- OUTSIDE RECORDS SUMMARY | 2022-06-30 10:59 | XMS_ITS | Encounter Summary ---
:1950 Author Organization [place] Address [facility] [place] [address] Care Team Providers Name Role Phone Ingrid Santana RN Unavailable Unavailable Momo Forbes Primary Care Provider Reason for Visit Reason Onset Date Comments Refill Request 04/26/2014 Encounter Details Date Type Department Care Team Description 04/26/2014 Refill Nephrology Shiva Kahn RN Refill Request 2nd Floor, Clinic 2A [facility] Sanders Wangensteen [address] [facility]2 [place], [place] [phone] [place] [address] [place] [phone] Social History Tobacco Use Types Packs/Day [...] documented in this encounter Care Teams Medical Housekeeper Relationship Specialty Start Date End Date Momo Forbes PCP - General Family Practice 01/02/14 [facility] 1999 [place] [address] Ingrid Santana RN Registered Nurse Transplant 02/10/12 documented as of this encounter
--- OUTSIDE RECORDS SUMMARY | 2022-06-30 10:59 | XMS_ITS | Encounter Summary ---
:1950 Author Organization [place] Address [facility] [place] [address] Care Team Providers Name Role Phone Ingrid Santana RN Unavailable Unavailable Momo Forbes Primary Care Provider Reason for Visit Reason Onset Date Comments Pre Visit Planning - Done 04/08/2014 2 m f/u Post o p AFIB s/p DCCV. on warfarin 4 weeks Encounter Details Date Type Department Care Team Description 04/08/2014 PRE VISIT [facility] [address] Pre Visit Planning - Physicians Heart MD David Done (2 m f/u Post op [facility] AF IB s/p DCCV. on [facility] warfarin 4 weeks) 4th Floor, Clinic 4B [address] [phone] (Wo rk) [address] [phone] Social History Tobacco Use Types Packs/Day Years [...] on filedocumented in this encounter Care Teams Blanking Machine Operator Relationship Specialty Start Date End Date Momo Forbes PCP - General Family Practice 01/02/[address] [address] Ingrid Santana, RN Registered Nurse Transplant 02/10/12 documented as of this encounter
--- OUTSIDE RECORDS SUMMARY | 2022-06-30 10:59 | XMS_ITS | Encounter Summary ---
:1950 Author Organization [place] Address [facility] [place] [address] Care Team Providers Name Role Phone Ingrid Santana RN Unavailable Unavailable Momo Forbes Primary Care Provider Encounter Details Date Type Department Care Team Description 05/10/2014 Orders Only Nephrology Shiva Kahn RN -donor kidney 2nd Floor, Clinic 2A [facility] transplant recipient Tommy Ruizfelisa [address] [place] [address] (Primary Dx) Building [address] [place] [phone] Social History Tobacco Use Types Packs/Day Years [...] in this encounter Care Teams Care Transition Manager Relationship Specialty Start Date End Date Momo Forbes PCP - General Family Practice 01/02/[address] [address] Ingrid Santana RN Registered Nurse Transplant 02/10/12 documented as of this encounter
--- OUTSIDE RECORDS SUMMARY | 2022-06-30 10:59 | XMS_ITS | Encounter Summary ---
:1950 Author Organization [place] Address [facility] [place] [address] Care Team Providers Name Role Phone Ingrid Santana RN Unavailable Unavailable Momo Forbes Primary Care Provider Reason for Visit Reason Comments RECHECK 3 month Tx follow Up Encounter Details Date Type Department Care Team Description 05/13/2014 Office Visit Nephrology Deysi Alicea, DM (diabetes mellitus), type 2 (H) (Primary Dx); 2nd Floor, Clinic 2A MD S/P kidney transplant Tommy Wilburn [phone] [place] [address] (Wo rk) [address] [phone] Social History Tobacco Use Types Packs/Day Years [...] discharged on Cumadin; Cumadin was stopped by fountain pen turner during the follow up visit, as he [...] Years of Education: 14 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
--- OUTSIDE RECORDS SUMMARY | 2022-06-30 10:59 | XMS_ITS | Encounter Summary ---
:1950 Author Organization [place] Address [address] [place] [address]. [place] [address] Care Team Providers Name Role Phone Ingrid Santana RN Unavailable Unavailable Momo Forbes Primary Care Provider Encounter Details Date Type Department Care Team Description 04/04/2014 Orders Only Nephrology Shiva Kahn RN S/P kidney transplant 2nd Floor, Clinic 2A [address] [phone] Social History Tobacco Use Types Packs/Day Years [...] transplant documented in this encounter Care Teams Claim Service Representative Relationship Specialty Start Date End Date Moom Forbes PCP - General Family Practice 01/02/14 [facility] 1999 [place] [address] Ingrid Santana RN Registered Nurse Transplant 02/10/12 documented as of this encounter
--- OUTSIDE RECORDS SUMMARY | 2022-06-30 10:59 | XMS_ITS | Encounter Summary ---
:1950 Author Organization [place] Address [address] [place] [address] Care Team Providers Name Role Phone Ingrid Santana RN Unavailable Unavailable Momo Forbes Primary Care Provider Encounter Details Date Type Department Care Team Description 04/22/2014 Orders Only [facility], Joseph Conor [facility], [facility] [place] [address] [phone] [place] [address] 994 [place] [address] (Wo rk) Social History Tobacco [...] (ABNORMAL) Tacrolimus level (05/17/2014 8:17 AM CDT) [facility] Method Time Signature Tacrolimus Last 05/16/2014 [facility] Dose 2000 [facility] Tacrolimus 4.4 (L) 5.0 - [facility] Level 15.0 ug/L [place] [...] Phon e Number [facility] 500 [place], [place] [phone] [place] [address] [facility] (ABNORMAL) Tacrolimus level (05/15/2014 8:15 AM CDT) [facility] gist Method Time Signature Tacrolimus Last 05/14/14 [facility] Dose 2000 [facility] Tacrolimus 4.6 (L) 5.0 - [facility] Level 15.0 ug/L [place] [...] Phon e Number [facility] 500 [place] [address] [facility] Tacrolimus level (05/10/2014 8:50 AM CDT) [facility] gist Method Time Signature Tacrolimus Not Provided [facility] Last Dose [facility] Tacrolimus 14.3 5.0 - [facility] Level 15.0 ug/L [facility] [...] Phon e Number [facility] 500 [place] [address] [place] [facility] (ABNORMAL) Tacrolimus level (05/07/2014 8:15 AM CDT) [facility] gist Method Time Signature Tacrolimus Last 05/06/14 [facility] Dose 2000 [facility] Tacrolimus 15.9 (H) 5.0 [...] Phon e Number [facility] 500 [place], [place] [phone] [place] [address] [facility] Tacrolimus level (05/03/2014 8:13 AM CDT) [facility] gist Method Time Signature Tacrolimus Last [facility] Dose 2000 [facility] Tacrolimus 8.8 5.0 - [facility] Level 15.0 ug/L [place] [...] Phon e Number [facility] 500 [place], [place] [phone] [place] [address] [facility] Tacrolimus level (04/30/2014 8:20 AM CDT) [facility] gist Method Time Signature Tacrolimus Last 04/29/14 [facility] Dose 2000 [facility] Tacrolimus 12.6 5.0 - [facility] Level 15.0 ug/L [place] [...] Phon e Number [facility] 500 [place], [place] [phone] [place] [address] [facility] Tacrolimus level (04/26/2014 8:30 AM CDT) [facility] gist Method Time Signature Tacrolimus Last 04/25/14 [facility] Dose 1900 [facility] Tacrolimus 10.1 5.0 - [facility] Level 15.0 ug/L [place] [...] Phon e Number [facility] 500 [place] [address] [facility] Tacrolimus level (04/24/2014 9:00 AM CDT) [facility] gist Method Time Signature Tacrolimus Last 04/23/14 [facility] Dose 1900 [facility] Tacrolimus 13.1 5.0 - [facility] Level 15.0 ug/L [place] [...] Phon e Number [facility] 500 [place], [place] [phone] [place] [address] LABS documented in this encounter Visit Diagnoses Not on filedocumented in this encounter Care Teams Gas Fitter Helper Relationship Specialty Start Date End Date Momo Forbes PCP - General Family Practice 01/02/14 [facility] 1999 [place] [address] Ingrid Santana, RN Registered Nurse Transplant 02/10/12 documented as of this encounter
--- OUTSIDE RECORDS SUMMARY | 2022-06-30 10:59 | XMS_ITS | Encounter Summary ---
:1950 Author Organization [place] Address [facility] [address] Care Team Providers Name Role Phone Ingrid Santana RN Unavailable Unavailable Momo Forbes Primary Care Provider Reason for Visit Reason Comments Heart Problem 6 week F/U Encounter Details Date Type Department Care Team Description 05/14/[address] [facility] es [facility] [place] [facility] Kei Hernandez, shanon carey (Primary Heart MD Dx) [facility] [place] 4th Floor, Clinic 4B [address] [facility] [address] [phone] [place], [place] (Work) [address] [phone] Social History Tobacco Use Types Packs/Day Years [...] questions or concerns. 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
--- OUTSIDE RECORDS SUMMARY | 2022-06-30 10:59 | XMS_ITS | Encounter Summary ---
:1950 Author Organization [place] Address [facility] [place] [address] Care Team Providers Name Role Phone Ingrid Santana RN Unavailable Unavailable Momo Forbes Primary Care Provider Reason for Visit Reason Onset Date Comments Refill Request 04/05/2014 aTmy Cabrera Encounter Details Date Type Department Care Team Description 04/05/2014 Refill The Transplant Migel Martinez, Refill Request 2nd Floor, Clinic 2A [facility] 420 [facility] antoprazole) Building [facility] 195 6 [facility] 88 [place] [address] [phone] Social History Tobacco Use Types Packs/Day Years [...] Last Fill: 03/14/14 Qty: 30 Michael [facility] [phone] documented in this encounter Plan of Treatment Not on filedocumented as of this encounter Visit Diagnoses Diagnosis S/P kidney transplant Kidney replaced by transplant Atrial fibrillation (H) Atrial fibrillation documented in this encounter Care Teams Air Traffic Coordinator Relationship Specialty Start Date End Date Momo Forbes PCP - General Family Practice 01/02/14 [facility] 1999 [place] [address] Ingrid Santana, RN Registered Nurse Transplant 02/10/12 documented as of this encounter
--- OUTSIDE RECORDS SUMMARY | 2022-06-30 10:59 | XMS_ITS | Encounter Summary ---
:1950 Author Organization [place] Address [facility]ly [facility] [address] Care Team Providers Name Role Phone Ingrid Santana RN Unavailable Unavailable Momo Forbes Primary Care Provider Reason for Visit Reason Comments Heart Problem 2 m f/u Post op AFIB s/p DCC V. on warfarin 4 weeks Encounter Details Date Type Department Care Team Description 04/09/2014 [facility] Atrial fibrill ation (H) (Primary Dx); [place] [facility] Enrique Maria pecified essential hypertension; Heart Other and unspecified hyperlipidemia; Tommy [facility] DM (diabetes mellitus), type 2 (H) Building [place] 4th Floor, Clinic 4B [address] [phone] [place], [place] (Work) [phone] [phone] Social History Tobacco Use Types Packs/Day Years [...] questions or concerns. 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 Smoking [...] 04/01/2014 Negative NEG mg/dL Final ??? Specific [place] Urine 04/01/2014 1.017 1.003 - 1.035 Final [...] NEG Ketones Urine Negative NEG mg/dL Specific [place] Urine 1.017 1.003 - 1.035 Blood Urine [...] Rodriguez documented in this encounter Nursing Notes Rbui Howell RN - 04/09/2014 12:43 PM CDT [...] uncontrolled documented in this encounter Care Teams Farm Manager Relationship Specialty Start Date End Date Momo Forbes PCP - General Family Practice 01/02/14 [facility] [address] [place] [address] Ingrid Santana, RN Registered Nurse Transplant 02/10/12 documented as of this encounter
--- OUTSIDE RECORDS SUMMARY | 2022-06-30 10:59 | XMS_ITS | Encounter Summary ---
:1950 Author Organization [place] Address [address] [place] [address]. [place] [address] Care Team Providers Name Role Phone Ingrid Santana RN Unavailable Unavailable Momo Forbes Primary Care Provider Reason for Visit Reason Onset Date Comments Patient Reminder 05/09/2014 Encounter Details Date Type Department Care Team Description 05/09/2014 Telephone Nephrology Yesenia Clements LPN Patient Reminder 2nd Floor, Clinic [address]A [address] [phone] Social History Tobacco Use [...] Family Practice 01/02/14 [facility] [address] [place] [address] Ingrid Santana, RN Registered Nurse Transplant 02/10/12 documented as of this encounter
--- OUTSIDE RECORDS SUMMARY | 2022-06-30 11:00 | XMS_ITS | Encounter Summary ---
:1950 Author Organization [place] Address [address] [place] [address] Care Team Providers Name Role Phone Ingrid Santana RN Unavailable Unavailable Momo Forbes Primary Care Provider Reason for Visit Reason Onset Date Comments Previsit 02/20/2014 Encounter Details Date Type Department Care Team Description 02/20/2014 Telephone Transplant Surgery C nanda Merchant, Migel Evans MD Previsit 2nd Floor, Clinic 2A [address] [address] [facility] [place] [phone] Social History Tobacco Use Types Packs/Day Years [...] filedocumented in this encounter Care Teams Cardiac Cath Rn Relationship Specialty Start Date End Date Momo Forbes PCP - General Family Practice 01/02/14 [facility] [address] [place] [phone] Ingrid Santana, RN Registered Nurse Transplant 02/10/12 documented as of this encounter
--- OUTSIDE RECORDS SUMMARY | 2022-06-30 11:00 | XMS_ITS | Encounter Summary ---
:1950 Author Organization [place] Address [address] [facility] [place] [address] Care Team Providers Name Role Phone Ingrid Santana RN Unavailable Unavailable Momo Forbes Primary Care Provider Reason for Visit Reason Comments Surgical Followup kidney tx 02/02/14 Encounter Details Date Type Department Care Team Description 02/25/2014 Office Visit Transplant Surgery Finger, Migel Hypophosp hatemia (Primary Dx); Clinic MD Nathan Kidney replaced by transplant; 2nd Floor, Clinic [address] [place] [address] -donor kidney transp lant recipient; [address] 1 95 High risk medications (not anticoagulant s) long-term use; Building snf (current) use of anticoagulant s; 516 [place], [place] Hyp[place]emia; [place] [address] Orthostatic hypotension [facility] 88 [place], [place] (Work) [phone] Social History Tobacco Use [...] Somewhat lethargic. Otherwise well Abd mod obesity. [place] in place. Drain with small amt of [...] will give mag and phos prescription. 5. [place] - Out today 6 Drain -- out [...] PM 4 1:40 CDT PM CDT Migel [facility] POCT Performing Organization Address City/State/ZIP Code Phon e Number [facility] POINT OF CARE TEST, GLUCOSE POINT OF CARE TEST, GLUCOSE BK virus PCR quantitative (02/25/2014 10:54 AM CDT) Component Value Ref Test Analysis Performed At Patholo gist Range Method Time [facility] BK Virus DNA Plasma, EDTA [facility] Quant Source anticoagulant [facility] BK Virus DNA <390 [facility] Quant Unit: cpy/mL [facility] Copy/mL [place] [facility] BK Virus DNA <2.6 [facility] Quant Log Unit: log [place] (Note) [place] [facility] INTERPRETIVE INFORMATION: BK Virus, Quantitation by [...] methodologies. Test developed and characteristics determined by [employer]. See Compliance Statement A: [employer]/ BK Virus DNA Not Detected [facility] Quant Interp Reference range: Not Detected [place] (Note) [place] [facility] Performed by [employer], [address] [place] [id number] [email or web address], Kj Mcmillan MD, Lab. Director Specimen Anatomical Collection Method Collection Time Receive d Time (Source) Location / / Volume Laterality Blood specimen 02/25/2014 10:54 4 (specimen) AM CDT 10:55 AM CDT Deysi Alicea MD LAB - MICRO GENERAL ORDERABL ES Performing Organization Address City/State/ZIP Code Phon e Number [id number] [place] [address] LABS Immunology recipient: SOT PRA (Post Tx for Donor Spec Antibody) (02/25/2014 10:54 AM CDT) [facility] Method Time Signature Immunology PRA [facility] Test Name [facility] Immunology Specimen [facility] Result received - [facility] LABS report to follow upon completion. Specimen Anatomical Collection Method Collection Time Receive d Time (Source) Location / / Volume Laterality Blood specimen 02/25/2014 10:54 4 (specimen) AM CDT 10:55 AM CDT Deysi Alicea MD LAB - IMMUNOLOGY ORDERABLES Performing Organization Address City/State/ZIP Code Phon e Number [facility] [address] LABS (ABNORMAL) INR (02/25/2014 10:53 AM CDT) athologist Signature INR 2.39 (H) 0.86 - 1.14 [facility] LABS Specimen Anatomical Collection Method Collection Time Receive d Time (Source) Location / / Volume Laterality Blood specimen 02/25/2014 10:53 4 (specimen) AM CDT 10:54 AM CDT Migel Merchant MD LAB - BLOOD ORDERABLES Performing Organization Address City/[facility]/ZIP Code Phon e Number [facility] [address] LABS (ABNORMAL) Magnesium (02/25/2014 10:53 AM CDT) athologist Signature Magnesium 1.5 (L) 1.6 - 2.3 [facility] mg/dL [place] [facility] Specimen Anatomical Collection Method Collection Time Receive d Time (Source) Location / / Volume Laterality Blood specimen 02/25/2014 10:53 4 (specimen) AM CDT 10:54 AM CDT Deysi Alicea MD LAB - BLOOD ORDERABLES Performing Organization Address City/[facility]/ZIP Code Phon e Number [facility] [address] LABS (ABNORMAL) Phosphorus (02/25/2014 10:53 AM CDT) athologist Signature Phosphorus 1.3 (L) 2.5 - 4.5 [facility] mg/dL [place] [facility] Specimen Anatomical Collection Method Collection Time Receive d Time (Source) Location / / Volume Laterality Blood specimen 02/25/2014 10:53 4 (specimen) AM CDT 10:54 AM CDT Deysi Alicea MD LAB - BLOOD ORDERABLES Performing Organization Address City/State/ZIP Code Phon e Number [address] LABS Mycophenolic acid (02/25/2014 10:53 AM [...] Phon e Number [facility] [address] [facility] [place] [facility] Tacrolimus level (02/25/2014 10:53 AM CDT) [facility] gist Method Time Signature Tacrolimus 02/24/14 ?1999 [facility] Last Dose CORRECTED ON 02/25 AT 1055: PREVIOUSLY REPORTED 1999 [facility] [place] [facility] Tacrolimus 9.1 5.0 - [facility] Level [...] Phon e Number [facility] 500 [place] [address] [facility] LABS (ABNORMAL) Basic metabolic panel (02/25/2014 10:53 AM CDT) [facility] gist Method Time Signature Sodium 137 133 - 144 [facility] mmol/L [facility] Potassium 4.6 3.4 - 5.3 [facility] mmol/L [facility] Chloride 108 94 - 109 [facility] mmol/L [facility] Carbon Dioxide 19 (L) 20 - 32 [facility] mmol/L [facility] [place] [facility] Anion Gap 10 6 - 17 [facility] mmol/L [facility] Glucose 217 (H) 60 - 99 [facility] mg/dL [facility] Urea Nitrogen 13 7 - 30 [facility] mg/dL [facility] Creatinine 1.48 (H) 0.66 - [facility] 1.25 mg/dL [facility] [place] [facility] GFR Estimate 48 (L) >60 [facility] mL/min/1.7 [place] m2 CAMPUS [facility] GFR Estimate If 58 (L) >60 [facility] Black mL/min/1.7 [place] m2 CAMPUS LABS Calcium 9.6 8.5 - 10.4 [facility] mg/dL [facility] Specimen Anatomical Collection Method Collection Time Receive d Time (Source) Location / / Volume Laterality Blood specimen 02/25/2014 10:53 4 (specimen) AM CDT 10:54 AM CDT Deysi Alicea MD LAB - BLOOD ORDERABLES Performing Organization Address City/State/ZIP Code Phon e Number [address] [address] [place] [facility] (ABNORMAL) CBC with platelets differential (02/25/2014 10:53 AM CDT) [facility] gist Method Time Signature WBC 4.9 4.0 - [facility] 11.0 [facility] 10e9/L CAMP[facility]S RBC Count 2.67 (L) 4.4 - 5.9 [facility] 10e12/L [facility] Hemoglobin 7.8 (L) 13.3 - [facility] 17.7 g/dL [facility] Hematocrit 23.5 (L) 40.0 - [facility] 53.0 % [facility] MCV 88 78 - 100 [facility] fl [facility] MCH 29.2 26.5 - [facility] 33.0 pg [facility] MCHC 33.2 31.5 - [facility] 36.5 g/dL [facility] RDW 14.3 10.0 - [facility] 15.0 % [facility] Platelet Count 179 150 - 450 [facility] 10e9/L [facility] Diff Method Automated [facility] Method [facility] % Neutrophils 89.4 % [facility] % Lymphocytes 3.9 % [facility] % Monocytes 5.1 % [facility] % Eosinophils 1.2 % [facility] % Basophils 0.2 % [facility] % Immature 0.2 % [facility] Granulocytes [facility] Absolute 4.4 1.6 - 8.3 [facility] Neutrophil 10e9/L [facility] Absolute 0.2 (L) 0.8 - 5.3 [facility] Lymphocytes 10e9/L [facility] Absolute 0.3 0.0 - 1.3 [facility] Monocytes 10e9/L [facility] Absolute 0.1 0.0 - 0.7 [facility] Eosinophils 10e9/L [facility] Absolute 0.0 0.0 - 0.2 [facility] Basophils 10e9/L [facility] Abs Immature 0.0 0 - 0.4 [facility] Granulocytes 10e9/L [facility] Specimen Anatomical Collection Method Collection Time Receive d Time (Source) Location / / Volume Laterality Blood specimen 02/25/2014 10:53 4 (specimen) AM CDT 10:54 AM CDT Deysi Alicea MD LAB - BLOOD ORDERABLES Performing Organization Address City/State/ZIP Code Phon e Number [facility] 500 [place] [address] [facility] documented in this encounter Visit Diagnoses Diagnosis 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 replaced by transplant -donor kidney transplant recipie nt Kidney replaced by transplant High risk medications (not anticoagulant s) long-term use Encounter for long-term (current) use of other medications snf (current) use of anticoagulant s Long-term (current) use of anticoagulant s Hypomagnesemia Disorders of magnesium metabolism Orthostatic hypotension documented in this encounter Care Teams Stenographer Secretary Relationship Specialty Start Date End Date Momo Forbes PCP - General Family Practice 01/02/[address] [address] Ingrid Santana, RN Registered Nurse Transplant 02/10/12 documented as of this encounter
--- OUTSIDE RECORDS SUMMARY | 2022-06-30 11:00 | XMS_ITS | Encounter Summary ---
:1950 Author Organization [place] Address [facility] [place] [address] Care Team Providers Name Role Phone Ingrid Santana RN Unavailable Unavailable Momo Forbes Primary Care Provider Reason for Visit Reason Onset Date Comments Pt. Information/instruction 03/14/2014 Encounter Details Date Type Department Care Team Description 03/14/2014 Telephone [facility] Beto Womack Pt . Interventional Radio martha Dangelo RN Information/instructio 500 [place] [phone] Social History Tobacco Use Types Packs/Day Years [...] filedocumented in this encounter Care Teams Swing Ride Operator Relationship Specialty Start Date End Date Momo Forbes PCP - General Family Practice 01/02/14 [facility] [address] [place] [address] Ingrid Santana RN Registered Nurse Transplant 02/10/12 documented as of this encounter
--- OUTSIDE RECORDS SUMMARY | 2022-06-30 11:00 | XMS_ITS | Encounter Summary ---
:1950 Author Organization [place] Address [facility] [place] [address] Care Team Providers Name Role Phone Ingrid Santana RN Unavailable Unavailable Momo Forbes Primary Care Provider Encounter Details Date Type Department Care Team Description 03/01/2014 Orders Only Nephrology Shiva Kahn RN -donor kidney 2nd Floor, Clinic 2A [facility] transplant recipient Tommy Ruizfelisa [address] [place] [phone] Social History Tobacco Use Types Packs/Day Years [...] transplant documented in this encounter Care Teams Brim Stiffener Relationship Specialty Start Date End Date Momo Forbes PCP - General Family Practice 01/02/[address] [address] Ingrid Santana RN Registered Nurse Transplant 02/10/12 documented as of this encounter
--- OUTSIDE RECORDS SUMMARY | 2022-06-30 11:00 | XMS_ITS | Encounter Summary ---
:1950 Author Organization [place] Address [address] [place] [address] Care Team Providers Name Role Phone Ingrid Santana RN Unavailable Unavailable Momo Forbes Primary Care Provider Encounter Details Date Type Department Care Team Description 03/11/2014 Anesthesia Event [facility] Aly Esquivel MD PeriOp Services [address] [facility] 500 [facility] 294 [place] [address] [place] [address] [phone] (Wo rk) Anesthesia Record Procedure Summary Procedure [...] benefits and alternatives discussed with: patient or district representative. Possibility of blood products discussed. Procedures [...] on filedocumented in this encounter Care Teams Normalizer Relationship Specialty Start Date End Date Momo Forbes PCP - General Family Practice 01/02/[address] [address] Ingrid Santana, RN Registered Nurse Transplant 02/10/12 documented as of this encounter
--- OUTSIDE RECORDS SUMMARY | 2022-06-30 11:00 | XMS_ITS | Encounter Summary ---
:1950 Author Organization [place] Address [facility]0 [facility] [address] Care Team Providers Name Role Phone Ingrid Santana RN Unavailable Unavailable Momo Forbes Primary Care Provider Encounter Details Date Type Department Care Team Description 03/14/2014 Orders Only Nephrology Shiva Kahn RN -donor kidney 2nd Floor, Clinic 2A [facility] transplant recipient Tommy Ruizfelisa [address] [place] [phone] Social History Tobacco Use Types Packs/Day Years [...] documented in this encounter Care Teams Coffee Plantation Worker Relationship Specialty Start Date End Date Momo Forbes PCP - General Family Practice 01/02/[address] [address] Ingrid Santana RN Registered Nurse Transplant 02/10/12 documented as of this encounter
--- OUTSIDE RECORDS SUMMARY | 2022-06-30 11:00 | XMS_ITS | Encounter Summary ---
:1950 Author Organization [place] Address [address] [place] [address]. [place] [address] Care Team Providers Name Role Phone Ingrid Santana RN Unavailable Unavailable Momo Forbes Primary Care Provider Encounter Details Date Type Department Care Team Description 03/13/2014 Orders Only Nephrology Shiva Kahn, Atrial fibrillation (H); 2nd Floor, Clinic 2A RN -donor kidney transplant recipie nt Tommy Wilburn [address] [phone] Social History Tobacco Use Types Packs/Day Years [...] transplant documented in this encounter Care Teams Audio Production Engineer Relationship Specialty Start Date End Date Momo Forbes PCP - General Family Practice 01/02/14 [facility] [address] [place] [address] Ingrid Santana RN Registered Nurse Transplant 02/10/12 documented as of this encounter
--- OUTSIDE RECORDS SUMMARY | 2022-06-30 11:00 | XMS_ITS | Encounter Summary ---
:1950 Author Organization [place] Address [address] [place] [address] Care Team Providers Name Role Phone Ingrid Santana RN Unavailable Unavailable Momo Forbes Primary Care Provider Reason for Visit Reason Onset Date Comments Transplant 03/08/2014 Elevated tacrolimus level Encounter Details Date Type Department Care Team Description 03/08/2014 Telephone Nephrology Jeff Giordano (Elevated 2nd Floor, Clinic 2A Almita Palomino RN tacrolimus level) Tommy Wilburn [address] [phone] Social History Tobacco Use Types Packs/Day Years [...] repeat the level. Leonor Giordano R.N. - [phone] documented in this encounter Plan of Treatment Not on filedocumented as of this encounter Visit Diagnoses Not on filedocumented in this encounter Care Teams Electrical Contacts Adjuster Relationship Specialty Start Date End Date Momo Forbes PCP - General Family Practice 01/02/[address] [address] Ingrid Santana, RN Registered Nurse Transplant 02/10/12 documented as of this encounter
--- OUTSIDE RECORDS SUMMARY | 2022-06-30 11:00 | XMS_ITS | Encounter Summary ---
:1950 Author Organization [place] Address [facility] [place] [address] Care Team Providers Name Role Phone Ingrid Santana RN Unavailable Unavailable Momo Forbes Primary Care Provider Reason for Visit Reason Onset Date Comments Patient Reminder 03/26/2014 Encounter Details Date Type Department Care Team Description 03/26/2014 Telephone Nephrology Yesenia Clements LPN Patient Reminder 2nd Floor, Clinic 2A [address] [phone] Social History Tobacco Use [...] filedocumented in this encounter Care Teams Tow Operator Relationship Specialty Start Date End Date Momo Forbes PCP - General Family Practice 01/02/14 [facility] [address] [place] [address] Ingrid Santana, RN Registered Nurse Transplant 02/10/12 documented as of this encounter
--- OUTSIDE RECORDS SUMMARY | 2022-06-30 11:00 | XMS_ITS | Encounter Summary ---
:1950 Author Organization [place] Address [address] [place] [address] Care Team Providers Name Role Phone Ingrid Santana RN Unavailable Unavailable Momo Forbes Primary Care Provider Encounter Details Date Type Department Care Team Description 03/22/2014 Orders Only [facility], Joseph Conor [facility], [facility] [place] [address] [phone] [place] [address] 956 [place] [address] (Wo rk) Social History Tobacco [...] Results Tacrolimus level (04/19/2014 8:40 AM CDT) [facility] Method Time Signature Tacrolimus Not [...] Phon e Number [facility] 500 [place], [place] [phone] [place] [address] [facility] Tacrolimus level (04/16/2014 8:22 AM CDT) [facility] gist Method Time Signature Tacrolimus Not Provided [facility] Last Dose [facility] LAB[facility] [...] Phon e Number [facility] 500 [place], [place] [phone] [place] [address] [facility] Tacrolimus level (04/11/2014 8:40 AM CDT) [facility] gist Method Time Signature Tacrolimus Last 04/10/14 [...] Phon e Number [facility] 500 [place] [address] [facility] Tacrolimus level (04/09/2014 8:45 AM CDT) [facility] gist Method Time Signature Tacrolimus Last 04/08/14 [...] Phon e Number [facility] 500 [place], [place] [phone] [place] [address] [facility] Tacrolimus level (04/05/2014 9:40 AM CDT) [facility] gist Method Time Signature Tacrolimus Last 1999 [...] Phon e Number [facility] 500 [place] [address] [facility] (ABNORMAL) Tacrolimus level (03/28/2014 8:30 AM CDT) [facility] gist Method Time Signature Tacrolimus Last 03/27/14 [...] Phon e Number [facility] 500 [place] [address] [facility] Tacrolimus level (03/26/2014 9:18 AM CDT) [facility] gist Method Time Signature Tacrolimus Last 03/25/14 [...] Phon e Number [facility] 500 [place], [place] [phone] [place] [address] [facility] Tacrolimus level (03/14/2014 9:00 AM CDT) [facility] gist Method Time Signature Tacrolimus Last 1999 [facility] Dose 03/13/14 [facility] [...] Address City/State/ZIP Code Phon e Number [phone] [place] [address] LABS documented in this encounter Visit Diagnoses Not on filedocumented in this encounter Care Teams Ultrasound Specialist Relationship Specialty Start Date End Date Momo Forbes PCP - General Family Practice 01/02/14 [facility] [address] [place] [address] Ingrid Santana, RN Registered Nurse Transplant 02/10/12 documented as of this encounter
--- OUTSIDE RECORDS SUMMARY | 2022-06-30 11:00 | XMS_ITS | Encounter Summary ---
:1950 Author Organization [place] Address [facility] [place] [address] Care Team Providers Name Role Phone Ingrid Santana RN Unavailable Unavailable Momo Forbes Primary Care Provider Reason for Visit Reason Comments RECHECK s/p kidney tx Auth/Cert - Closed Specialty Diagnoses / Procedures Referred By Contact Refer red To Contact Surgery Diagnoses S/P Kidney Transplant Uu Periop Procedures COMBINED CYSTOSCOPY, REMOVE STENT(S) 500 [place] [address] Phone: Fax: Referral ID Status Reason Start Date Expiration Date Visits Requ ested Visits Authorized [id number] Closed 1 1 Encounter Details Date Type Department Care Team Description 04/01/2014 Office Visit Nephrology Deysi Alicea Immunosuppressed status (H) (Primary Dx); 2nd Floor, Clinic MD Aline High risk medication use; 2A [facility] Kidney replaced by homeroan t; Tommy DOMÍNGUEZ S/P kidney transplant [place] [address] [place] [address] [place], [place] (Work) [address] [phone] Social History Tobacco Use Types Packs/Day Years [...] -no follow up, I will ask his infection prevention coordinator to obtain results from his local [...] at home regularly; BP checked by me [id number]; HE was previously on Metoprolol 12.5 mg [...] Years of Education: 14 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
--- OUTSIDE RECORDS SUMMARY | 2022-06-30 11:00 | XMS_ITS | Encounter Summary ---
:1950 Author Organization [place] Address [facility] [place] [address] Care Team Providers Name Role Phone Ingrid Santana RN Unavailable Unavailable Momo Forbes Primary Care Provider Encounter Details Date Type Department Care Team Description 03/18/2014 Orders Only Nephrology Shiva Kahn RN -donor kidney 2nd Floor, Clinic 2A [facility] transplant recipient Tommy Ruizfelisa [address] [place] [phone] Social History Tobacco Use Types Packs/Day Years [...] documented in this encounter Care Teams Head Boys Tennis Coach Relationship Specialty Start Date End Date Momo Forbes PCP - General Family Practice 01/02/[address] [address] Ingrid Santana RN Registered Nurse Transplant 02/10/12 documented as of this encounter
--- OUTSIDE RECORDS SUMMARY | 2022-06-30 11:00 | XMS_ITS | Encounter Summary ---
:1950 Author Organization [place] Address [address] [place] [address] Care Team Providers Name Role Phone Ingrid Santana RN Unavailable Unavailable Momo Forbes Primary Care Provider Reason for Visit Auth/Cert - Closed Specialty Diagnoses / Procedures Referred By Contact Refer red To Contact Surgery Diagnoses S/P Kidney Transplant Uu Periop Procedures COMBINED CYSTOSCOPY, REMOVE STENT(S) 500 [place] [address] Phone: Fax: Referral ID Status Reason Start Date Expiration Date Visits Requ ested Visits Authorized [id number] Closed 1 1 Encounter Details Date Type Department Care Team Description 04/01/2014 Hospital Encounter [facility], Migel Evans, Same Day Surgery East [address] 500 [facility] 195 [place] [address] [place] [address] (Wo rk) Social History Tobacco Use Types [...] Scott RN - 04/01/2014 10:15 AM CDT [facility], [place] Same-Day Surgery Adult Discharge Orders & Instructions [...] To contact a doctor, call or: ??? [phone] and ask for the resident eco industrial development consultant for (answered 24 hours a day) ??? Emergency Department: [facility]: [phone] (TTY for hearing impaired: [phone]) documented in this encounter Medications at Time [...] Analysis Performed At [facility] gist Range Method Time Signature Specimen Unspecified [facility] Urine CAMPUS LABS Special Specimen [facility] [...] Organization Address City/State/ZIP Code Phon e Number [address] [address] [facility] UNIVERSITY CAMPUS LABS [facility] MICROBIOLOGY (ABNORMAL) UA with Microscopic (04/01/2014 9:00 AM CDT) Component Value Ref Test Analysis Performed At [facility] gist Range Method Time Signature Color Urine Yellow [facility] UNIVERSITY CAMPUS LABS Appearance Urine Clear [facility] UNIVERSITY CAMP[facility] LABS Glucose Urine 30 (A) NEG [facility] mg/dL UNIVERSITY CAMPUS LABS Bilirubin Urine Negative NEG [facility] UNIVERSITY C[facility] LABS Ketones Urine Negative NEG [facility] mg/dL UNIVERSITY CAMPUS LABS Specific [place] 1.017 1.003 - [facility] Urine 1.035 UNIVERSITY CAMPUS LABS Blood Urine Moderate (A) NEG [facility] UNIVERSITY CAMPUS LABS pH Urine 6.0 5.0 - [facility] 7.0 pH UNIVERSITY [place] LABS Protein Albumin 10 (A) NEG [facility] Urine mg/dL UNIVERSITY [place] LABS Urobilinogen Normal 0.0 - [facility] mg/dL 2.0 [place] mg/dL [place] LABS Nitrite Urine Negative NEG [facility] UNIVERSITY CAMPUS LABS Leukocyte Negative NEG [facility] Esterase Urine UNIVERSITY [place] LABS Source Unspecified [facility] Urine UNIVERSITY CAMPUS [...] LAB - URINE ORDERABLES Performing Organization Address City/[facility]/ZIP Code Phon e Number [address] LABS (ABNORMAL) INR (04/01/2014 8:36 AM CDT) P athologist Signature INR 1.64 (H) 0.86 - 1.14 [facility] LABS Specimen Anatomical Collection Method Collection Time Receive d Time (Source) Location / / Volume Laterality Blood specimen 04/01/2014 8:36 AM 014 8:41 (specimen) CDT AM CDT Momo Jimenez MD LAB - BLOOD ORDERABLES Performing Organization Address City/[facility]/ZIP Code Phon e Number [facility] [address] LABS EKG 12-lead, tracing only (04/01/2014 8:28 AM CDT) Patholo gist Method Time Signature Interpretation ECG Click View RADIOLOGY Image link RESULTS to view waveform and result Specimen (Source) Anatomical Collection Method Collection Time Re ceived Time Location / / Volume Laterality 04/01/2014 8:28 AM CDT Momo Jimenez MD ECG ORDERABLES Performing Organization Address City/[facility]/ZIP Code Phon e Number RADIOLOGY RESULTS Potassium (04/01/2014 8:11 AM CDT) athologist Signature Potassium 4.1 3.4 - 5.3 [facility] mmol/L [place] LABS Specimen Anatomical Collection Method Collection Time Receive d Time (Source) Location / / Volume Laterality Blood specimen 04/01/2014 8:11 AM 014 8:27 (specimen) CDT AM CDT Momo Jimenez MD LAB - BLOOD ORDERABLES Performing Organization Address [facility]/ZIP Code Phon e Number [address] LABS (ABNORMAL) Hemoglobin (04/01/2014 8:11 AM CDT) athologist Signature Hemoglobin 10.2 (L) 13.3 - [facility] 17.7 g/dL [place] LABS Specimen Anatomical Collection Method Collection Time Receive d Time (Source) Location / / Volume Laterality Blood specimen 04/01/2014 8:11 AM 014 8:27 (specimen) CDT AM CDT Momo Jimenez MD LAB - BLOOD ORDERABLES Performing Organization Address City/[facility]/ZIP Code Phon e Number [address] LABS (ABNORMAL) Glucose by meter (04/01/2014 8:02 AM CDT) athologist Signature Glucose 158 (H) 60 - 99 POINT OF CARE mg/dL TEST, GLUCOSE Specimen Anatomical Collection Method Collection Time Receive d Time (Source) Location / / Volume Laterality 04/01/2014 8:02 AM 4 8:05 CDT AM CDT Migel Merchant MD LAB - BEAKER POCT Performing Organization Address City/[facility]/ZIP Code Phon e Number [facility] POINT OF CARE TEST, GLUCOSE POINT OF CARE TEST, GLUCOSE documented in this encounter Visit Diagnoses Not on filedocumented in this encounter Active and Recently Administered Medications Times are shown in CDT. Scheduled Medication Order 03/30/2014 03/31/2014 04/01/2014 levofloxacin (LEVAQUIN) IVPB 500 mg (COMPLETED) 0850 (Given - Provider: Addis Brannon APRN TELLER VAULT - Comment: Asked by Fellow to give [...] Intra-procedure documented in this encounter Care Teams Metalsmith Helper Relationship Specialty Start Date End Date Momo Forbes PCP - General Family Practice 01/02/14 [place] [id number] Ingrid Santana, RN Registered Nurse Transplant 02/10/12 documented as of this encounter
--- OUTSIDE RECORDS SUMMARY | 2022-06-30 11:00 | XMS_ITS | Encounter Summary ---
:1950 Author Organization [place] Address [address] [place] [address] Care Team Providers Name Role Phone Ingrid Santana RN Unavailable Unavailable Momo Forbes Primary Care Provider Reason for Referral Specialty Diagnoses / Procedures Referred By Contact Refer red To Contact Migel Merchant MD 420 [facility] 195 [place], [place] [address] Referral ID Status Reason Start Date Expiration Date Visits Requ ested Visits Authorized Scheduling Instructions ANTICOAGULATION CLINIC COLLABORATIVE PRA CTICE AGREEMENT The following represents a collaborative practice agreement among the physicians of the Clinic and staff of the Anticoagulat ion Clinic Service ([facility]) Physicians shall: 1. Refer patients requiring anticoagulat ion to a specialty service staffed by personnel of Pharmacy Services and super vised by Clinic physicians. 2. Respond to questions and referrals fr pharmacy staff regarding delinquent or difficult patients. 3. Inform the [facility] staff when a new patie [...] of adverse or sub-therapeutic effects including at [facility] the following: Has the patient experienced [...] Department Care Team Description 03/29/2014 Orders Only [facility] Migel Merchanta l fibrillation (H) (Primary Dx); Anticoagulation Clin ic MD [facility] (current) use of anticoagulant s 420 [facility] 420 [facility] 195 [phone] [place] [address] Social History Tobacco Use Types Packs/Day Years [...] Routine Atrial fibri llation (H) Ordered: 03/29/2014 [facility] (Current) Use Of Anticoagulants documented as of this encounter Visit Diagnoses Diagnosis Atrial fibrillation (H) - Primary Atrial fibrillation superintendent terminal (current) use of anticoagulant s Long-term (current) use of anticoagulant s documented in this encounter Care Teams Test Case Developer Relationship Specialty Start Date End Date Momo Forbes PCP - General Family Practice 01/02/14 [facility] [address] [place] [address] Ingrid Santana, RN Registered Nurse Transplant 02/10/12 documented as of this encounter
--- OUTSIDE RECORDS SUMMARY | 2022-06-30 11:00 | XMS_ITS | Encounter Summary ---
:1950 Author Organization [place] Address [address] [place] [address]. [place] [address] Care Team Providers Name Role Phone Ingrid Santana RN Unavailable Unavailable Momo Forbes Primary Care Provider Encounter Details Date Type Department Care Team Description 03/11/2014 Orders Only Transplant Surgery Celina Cole (Primary Clinic A, Dx) 2nd Floor, Clinic 2A [address] [place] [address] [address] [facility] [address] Social History Tobacco Use [...] channels documented in this encounter Care Teams Evp Relationship Specialty Start Date End Date Momo Forbes PCP - General Family Practice 01/02/14 [facility] 1999 [place] [address] Ingrid Santana RN Registered Nurse Transplant 02/10/12 documented as of this encounter
--- OUTSIDE RECORDS SUMMARY | 2022-06-30 11:00 | XMS_ITS | Encounter Summary ---
:1950 Author Organization [place] Address [address] [place] [address] Care Team Providers Name Role Phone Ingrid Santana RN Unavailable Unavailable Momo Forbes Primary Care Provider Reason for Visit Reason Onset Date Comments Anticoagulation 03/29/2014 Encounter Details Date Type Department Care Team Description 03/29/2014 Telephone [facility] Mary Sheffield RN Anticoagulation Anticoagulation Clin [place] [phone] Social History Tobacco Use Types Packs/Day [...] \this patient. He has INRs done at [facility] He takes Warfarin 5 mg daily He developed Afib after surgery . He sees cardiologylater this month to determine if the Warfarin can be stopped. He is having a stent removed on Tuesday04/01/14 Spoke with the Oncall Dr Perez no need to stop Warfarin INR yesterday at [facility] was 1[address] Kahn Instructed patient's to give 7.5 mg tonight and then 5 mg Sat , Sun Conservative increase since we do not know how quickly he responds. He is having the procedure on Tuesday. documented in this encounter Plan of Treatment Not on filedocumented as of this encounter Visit Diagnoses Not on filedocumented in this encounter Care Teams Rigging Worker Relationship Specialty Start Date End Date Momo Forbes PCP - General Family Practice 01/02/[address] [address] Ingrid Santana, RN Registered Nurse Transplant 02/10/12 documented as of this encounter
--- OUTSIDE RECORDS SUMMARY | 2022-06-30 11:00 | XMS_ITS | Encounter Summary ---
:1950 Author Organization [place] Address [address] [place] [address] Care Team Providers Name Role Phone Ingrid Santana RN Unavailable Unavailable Momo Forbes Primary Care Provider Reason for Visit Auth/Cert - Closed Specialty Diagnoses / Procedures Referred By Contact Refer red To Contact Surgery Diagnoses S/P Kidney Transplant Uu Periop Procedures COMBINED CYSTOSCOPY, REMOVE STENT(S) 500 [place] [address] Phone: Fax: Referral ID Status Reason Start Date Expiration Date Visits Requ ested Visits Authorized [id number] Closed 1 1 Encounter Details Date Type Department Care Team Description 04/01/2014 Surgery [facility] Migel Merchant , [place] of Right [facility] J Stent 500 [facility] 420 [facility] [place] [address] [place] [address] [place] [address] (Wo rk) Surgery Details Date/Time Status Location [...] 04/01/2014 10:15 AM CDT [facility] [place] Same-Day Surgery Adult Discharge Orders & Instructions [...] To contact a doctor, call or: ??? [phone] and ask for the resident marketing information analyst for (answered 24 hours a day) ??? Emergency Department: [facility]: [phone] (TTY for hearing impaired: [phone]) documented in this encounter Medications at Time [...] Component Value Ref Test Analysis Performed At [facility] gist Range Method Time Signature Specimen Unspecified [facility] UNIVERSITY Description Urine CAMPUS LABS Special [...] Number [facility] [address] LABS [facility] MICROBIOLOGY (ABNORMAL) UA with Microscopic (04/01/2014 9:00 AM CDT) Component Value Ref Test Analysis Performed At Patholo gist Range Method Time Signature Color Urine Yellow [facility] UNIVERSITY [facility] LABS Appearance Urine Clear [facility] UN[facility]ITY [facility] LABS Glucose Urine 30 (A) NEG [facility] mg/dL UNIVERSITY CAMPUS LABS Bilirubin Urine Negative NEG [facility] UNIVERSITY CAMP[facility] LABS Ketones Urine Negative NEG [facility] mg/dL UNIVERSITY [place] LABS Specific [place] 1.017 1.003 - [facility] Urine 1.035 UNIVERSITY [place] LABS Blood Urine Moderate (A) NEG [facility] LABS pH Urine 6.0 5.0 - [facility] 7.0 pH UNIVERSITY CAMPUS LABS Protein Albumin 10 (A) NEG [facility] Urine mg/dL [facility]ITY [place] LABS Urobilinogen Normal 0.0 - [facility] mg/dL 2.0 UNIVERSITY mg/dL CAMPUS LABS Nitrite Urine Negative NEG [facility] UNIVERSITY CAMPUS LABS Leukocyte Negative NEG [facility] Esterase Urine UNIVERSITY [place] LABS Source Unspecified [facility] Urine UNIVERSITY CAMPUS [...] Phon e Number [facility] [address] LABS (ABNORMAL) INR (04/01/2014 8:36 AM CDT) P athologist Signature INR 1.64 (H) 0.86 - 1.14 [place] [facility] LABS Specimen Anatomical Collection Method Collection Time Receive d Time (Source) Location / / Volume Laterality Blood specimen 04/01/2014 8:36 AM 014 8:41 (specimen) CDT AM CDT Momo Jimenez MD LAB - BLOOD ORDERABLES Performing Organization Address City/[facility]/ZIP Code Phon e Number [facility] [address] LABS EKG 12-lead, tracing only (04/01/2014 8:28 AM CDT) [facility] gist Method Time Signature Interpretation ECG Click View RADIOLOGY Image link RESULTS to view waveform and result Specimen (Source) Anatomical Collection Method Collection Time Re ceived Time Location / / Volume Laterality 04/01/2014 8:28 AM CDT Momo Jimenez MD ECG ORDERABLES Performing Organization Address City/[facility]/ZIP Code Phon e Number RADIOLOGY RESULTS Potassium (04/01/2014 8:11 AM CDT) athologist Signature Potassium 4.1 3.4 - 5.3 [facility] mmol/L CAMPUS LABS Specimen Anatomical Collection Method Collection Time Receive d Time (Source) Location / / Volume Laterality Blood specimen 04/01/2014 8:11 AM 014 8:27 (specimen) CDT AM CDT Momo Jimenez MD LAB - BLOOD ORDERABLES Performing Organization Address City/[facility] Code Phon e Number [address] LABS (ABNORMAL) Hemoglobin (04/01/2014 8:11 AM CDT) athologist [facility] Hemoglobin 10.2 (L) 13.3 - [facility] 17.7 g/dL CAMPUS LABS Specimen Anatomical Collection Method Collection Time Receive d Time (Source) Location / / Volume Laterality Blood specimen 04/01/2014 8:11 AM 014 8:27 (specimen) CDT AM CDT Momo Jimenez MD LAB - BLOOD ORDERABLES Performing Organization Address City/[facility]/ZIP Code Phon e Number [address] LABS (ABNORMAL) Glucose by meter [...] 0850 (Given - Provider: Addis Brannon APRN FAGOT MAKER - Comment: Asked by Fellow to [...] Intra-procedure documented in this encounter Care Teams [employer]obiles Repairer Relationship Specialty Start Date End Date Momo Forbes PCP - General Family Practice 01/02/[address] [address] Ingrid Santana, RN Registered Nurse Transplant 02/10/12 documented as of this encounter
--- OUTSIDE RECORDS SUMMARY | 2022-06-30 11:00 | XMS_ITS | Encounter Summary ---
:1950 Author Organization [place] Address [address] [place] [address] Care Team Providers Name Role Phone Ingrid Santana RN Unavailable Unavailable Momo Forbes Primary Care Provider Reason for Visit Reason Onset Date Comments Pre Visit Planning - Done 03/08/2014 Appointment on 03/11/2014 Encounter Details Date Type Department Care Team Description 03/08/2014 Telephone Nephrology Alexandria Caldera Pre Visit Planning - 2nd Floor, Clinic 2A JAT[place] Done (Appointment on Tommy Wilburn 03/11/20 14) [address] [address] Social History Tobacco Use Types Packs/Day Years Used Date Smoking Tobacco: Former Cigars Quit : 08/22/2006 Smokeless Tobacco: Never Alcohol Use Standard Drinks/Week Comments Yes 0 (1 standard drink = 0.6 oz pure alcoho l) occasional drink. Sex Assigned at Date Recorded Not on file documented as of this encounter Miscellaneous Notes Telephone Encounter - lAexandria Caldera CMA - 03/08/2014 10:02 AM CDT Called patient to remind about upcoming appointment. Told patient to bring list of medications. Toldpatient to call [phone] if any questions or needs to reschedule. Alexandria Caldera CMA documented in this encounter Plan of Treatment Not on filedocumented as of this encounter Visit Diagnoses Not on filedocumented in this encounter Care Teams Merchandise Distributor Relationship Specialty Start Date End Date Momo Forbes PCP - General Family Practice 01/02/14 [facility] [address] [place] [address] Ingrid Santana, RN Registered Nurse Transplant 02/10/12 documented as of this encounter
--- OUTSIDE RECORDS SUMMARY | 2022-06-30 11:00 | XMS_ITS | Encounter Summary ---
:1950 Author Organization [place] Address [facility] [place] [address] Care Team Providers Name Role Phone Ingrid Santana RN Unavailable Unavailable Momo Forbes Primary Care Provider Encounter Details Date Type Department Care Team Description 03/19/2014 Orders Only Nephrology Shiva Kahn RN -donor kidney 2nd Floor, Clinic 2A [facility] transplant recipient Tommy Ruizfelisa [address] [place] [phone] [phone] Social History Tobacco Use Types Packs/Day Years [...] transplant documented in this encounter Care Teams General Operator Relationship Specialty Start Date End Date Momo Forbes PCP - General Family Practice 01/02/[address] [address] Ingrid Santana RN Registered Nurse Transplant 02/10/12 documented as of this encounter
--- OUTSIDE RECORDS SUMMARY | 2022-06-30 11:00 | XMS_ITS | Encounter Summary ---
:1950 Author Organization [place] Address [address] [place] [address] Care Team Providers Name Role Phone Ingrid Santana RN Unavailable Unavailable Momo Forbes Primary Care Provider Reason for Visit Reason Onset Date Comments Refill Request 03/04/2014Aug Encounter Details Date Type Department Care Team Description 03/04/2014 Refill The Transplant Kaitlynn Moreno MD Refill Request 2nd Floor, Clinic 2A [facility] [address] [address] [place], [place] [phone] (Wo rk) [address] [phone] Social History Tobacco Use Types Packs/Day Years [...] Fill Date: 02/08/14 Quantity: 60 [facility] [phone] documented in this encounter Plan of Treatment Not on filedocumented as of this encounter Visit Diagnoses Diagnosis Atrial fibrillation (H) Atrial fibrillation documented in this encounter Care Teams Pigment And Lacquer Mixer Relationship Specialty Start Date End Date Momo Forbes PCP - General Family Practice 01/02/14 [facility] 1999 [place] [phone] Ingrid Santana, RN Registered Nurse Transplant 02/10/12 documented as of this encounter
--- OUTSIDE RECORDS SUMMARY | 2022-06-30 11:00 | XMS_ITS | Encounter Summary ---
:1950 Author Organization [place] Address [address] [place] [address] Care Team Providers Name Role Phone Ingrid Santana RN Unavailable Unavailable Momo Forbes Primary Care Provider Reason for Visit Auth/Cert - Closed Specialty Diagnoses / Procedures Referred By Contact Refer red To Contact Surgery Diagnoses Status Post Kidney Transplant Uu Periop Procedures COMBINED CYSTOSCOPY, REMOVE STENT(S) 500 [place] [address] Phone: Fax: Referral ID Status Reason Start Date Expiration Date Visits Requ ested Visits Authorized [id number] Closed 1 1 Encounter Details Date Type Department Care Team Description 03/11/2014 Hospital Encounter [facility] Migel Merchant, Same Day Surgery East [address] 500 [facility] 195 [place] [address] [place] [address] (Wo rk) Social History Tobacco Use Types [...] 8:46 CDT AM CDT Migel Merchant MD [facility] POCT Performing Organization Address City/State/ZIP Code Phon e Number [facility] POINT OF CARE TEST, GLUCOSE POINT OF CARE TEST, GLUCOSE documented in this encounter Visit Diagnoses Not on filedocumented in this encounter Active and Recently Administered Medications Care Teams Blind Eyeletter Relationship Specialty Start Date End Date Momo Forbes PCP - General Family Practice 01/02/14 [facility] 1999 [place] [address] Ingrid Santana, RN Registered Nurse Transplant 02/10/12 documented as of this encounter
--- OUTSIDE RECORDS SUMMARY | 2022-06-30 11:00 | XMS_ITS | Encounter Summary ---
:1950 Author Organization [place] Address [address] [place] [address] Care Team Providers Name Role Phone Ingrid Santana RN Unavailable Unavailable Momo Forbes Primary Care Provider Encounter Details Date Type Department Care Team Description 03/15/2014 Hospital Encounter [facility] Susy Cole, Lymphocele Unit 2A [facility] [address] [phone] [place], [place] [id number] (Wo rk) Social History Tobacco Use Types [...] until healed, wash daily with antibacterial soap. [facility] INTERVENTIONAL RADIOLOGY DEPARTMENT Procedure Physician Andrea Can Date of procedure Telephone numbers: [phone] Tuesday-Tuesday 8:00 am to 4:30 pm [phone] After 4:30 pm Tuesday-Tuesday, Weekends & Holidays. Ask for the Interventional Radiologist ent consultant. Someone is available 24 hours/day [facility] toll free number: Tuesday-Tuesday 8:00 am [...] CCRN March 15, 2014 9:20 AM Pager: [phone] [facility] - 03/15/2014 8:58 AM CDT Discussed order with Dr Merchant today. He would like drain placement if the fluid appears thin. If itappears to be a hematoma then aspiration only. D/w Farid resident and IR staff doing the case. Thanks [facility] STRUCTURES ASSEMBLER ([phone]) Jeanette Lopez RN - 03/15/2014 8:14 AM CDT Prepped and consented, INR 1.1 FSBS is 219 documented in this encounter Procedure Notes Drea Glasgow MD - 03/15/2014 9:23 AM CDT Interventional Radiology Brief Post Procedure Note Pre Procedure Diagnosis: perinephric fluid collection Post Procedure Diagnosis: Same Procedure: Aspiration of RLQ fluid collection over the tranplant kidney Proceduralist: Drea Glasgow MD, Andrea Gibbons PA-C Land Surveyor Manager: None Time Out: Prior to the start [...] Dr. Yossi Cox Resident: Dr. Drea Glasgow Land Surveyor Manager: Andrea Gibbons PA-C. Medications: 1% lidocaine and [...] Dr. Yossi Cox Resident: Dr. Drea Glasgow Land Surveyor Manager: Andrea Gibbons PA-C. Medications: 1% lidocaine and [...] with the findings. YOSSI COX MD Celina oCle MD IMG IR ORDERABLES Gram stain (03/15/2014 9:05 AM CDT) Component Value Ref Test Analysis Performed At [facility] Range Method Time Signature Specimen [facility]ir[facility] Gram Stain Many PMNs seen [facility] No organisms seen MICROBIOLOGY Micro Report FINAL [facility] Status 03/15/2014 MICROBIOLOGY Specimen Anatomical Collection Method Collection Time Receive d Time (Source) Location / / Volume Laterality 03/15/2014 9:05 AM 4 9:59 CDT AM CDT Celina Cole MD LAB - MICRO GENERAL ORDERABL ES Performing Organization Address City/[facility]/ZIP Code Phon e Number [facility] [address] LABS [facility] MICROBIOLOGY (ABNORMAL) Fluid Culture (03/15/2014 9:05 AM CDT) Component Value Ref Test Analysis Performed At Patholo gist Range Method Time Signature Specimen Aspirate [facility] Description [facility] LABS Culture Micro Light growth Coagulase negat jo Staphylococcus Susceptibility testing not [facility] routinely done MICROBIOLOGY (A) Micro Report FINAL 03/18/2014 [facility] Status MICROBIOLOGY Specimen Anatomical Collection Method Collection Time Receive d Time (Source) Location / / Volume Laterality Fluid specimen SPECIMEN OBTAINED 03/15/2014 9:05 AM 9:59 (specimen) BY ASPIRATION / CDT AM CDT Unknown Celina Cole MD LAB - MICRO GENERAL ORDERABL ES Performing Organization Address City/[facility]/ZIP Code Phon e Number [address] LABS [facility] MICROBIOLOGY Triglyceride Fluid (03/15/2014 9:05 AM CDT) Patholo gist Method Time Signature Triglyceride Aspirate [facility] Fluid Source [facility] Triglyceride 94 mg/dL [facility] Fluid [facility] LABS Comment: No reference ranges [...] - BODY FLUIDS ORDERABLES Performing Organization Address City/[facility]/ZIP Code Phon e Number [address] [place] [address] [facility] LABS Cell count with differential fluid (03/15/2014 9:05 AM CDT) Component Value Ref Test Analysis Performed At [facility] Range Method Time Signature Body Fluid Aspirate [facility] Analysis Source [facility] Color Fluid Brown [facility] LABS Appearance Turbid [facility] Fluid [facility] LABS RBC Fluid << Do Not /uL [facility] Report >> [facility] LABS WBC Fluid 12781 /uL [facility] LABS % Neutrophils 97 % [facility] Fluid [facility] LABS % Lymphocytes 2 % [facility] Fluid [facility] LABS % Eosinophils 1 % [facility] Fluid [facility] LABS Specimen Anatomical Collection Method Collection Time Receive d Time (Source) Location / / Volume Laterality SPECIMEN OBTAINED 03/15/2014 9:05 AM 02/20 9:56 BY ASPIRATION / CDT AM CDT Unknown Celina Cole MD LAB - BODY FLUIDS ORDERABLES Performing Organization Address City/State/ZIP Code Phon e Number [facility] [address] LABS Lactate dehydrogenase fluid (03/15/2014 9:05 AM CDT) Component Value Ref Test Analysis Performed At [facility] Range Method Time Signature LD Fluid Source Aspirate [facility] LABS Lactate Canceled, Test credited U/L [...] Phon e Number [facility] 500 [place], [place] [id number] [place] [address] LABS Creatinine fluid (03/15/2014 9:05 AM CDT) [facility] Method Time Signature Creatinine Aspirate [facility] Fluid Source [facility] LABS Creatinine 1.5 mg/dL [facility] LABS Comment: No reference ranges have been [...] - BODY FLUIDS ORDERABLES Performing Organization Address City/[facility]/ZIP Code Phon e Number [facility] [address] [place] [address] [facility] LABS INR point of care (03/15/2014 [...] City/[facility]/ZIP Code Phon e Number [facility] [...] LAB - BEAKER POCT Performing Organization Address City/[facility]/ZIP Code Phon e Number [facility] [...] Jeanette Lopez RN) Routine, 3 g, Intravenous, PRE-OP/PRE-HI OCEDURE, Starting on Tue03/15/14 at 0734, For [...] Intra-procedure documented in this encounter Care Teams In Home Aide Relationship Specialty Start Date End Date Momo Forbes PCP - General Family Practice 01/02/[address] [address] Ingrid Santana, RN Registered Nurse Transplant 02/10/12 documented as of this encounter
--- OUTSIDE RECORDS SUMMARY | 2022-06-30 11:01 | XMS_ITS | Encounter Summary ---
:1950 Author Organization [place] Address [facility] [place] [address] Care Team Providers Name Role Phone Ingrid Santana RN Unavailable Unavailable Momo Forbes Primary Care Provider Encounter Details Date Type Department Care Team Description 02/15/2014 Orders Only Nephrology Shiva Kahn RN Kidney replaced by transplant; 2nd Floor, Clinic 2A [facility] S/P kidney transplant Tommy [address] [phone] Social History Tobacco Use Types Packs/Day Years [...] documented in this encounter Care Teams Agriculture Laborer Relationship Specialty Start Date End Date Momo Forbes PCP - General Family Practice 01/02/14 [facility] [address] [place] [address] Ingrid Santana RN Registered Nurse Transplant 02/10/12 documented as of this encounter
--- OUTSIDE RECORDS SUMMARY | 2022-06-30 11:01 | XMS_ITS | Encounter Summary ---
:1950 Author Organization [place] Address [address] [place] [address]. [place] [address] Care Team Providers Name Role Phone Ingrid Santana RN Unavailable Unavailable Momo Forbes Primary Care Provider Reason for Visit Reason Onset Date Comments Refill Request 02/11/2014 Encounter Details Date Type Department Care Team Description 02/11/2014 Refill Nephrology Isa Ly RN Refill Request 2nd Floor, Clinic [address] [place] [phone] Social History Tobacco Use Types Packs/Day [...] transplant documented in this encounter Care Teams Fingerprinter Relationship Specialty Start Date End Date Momo Forbes PCP - General Family Practice 01/02/14 [facility] [address] [place] [address] Ingrid Santana RN Registered Nurse Transplant 02/10/12 documented as of this encounter
--- OUTSIDE RECORDS SUMMARY | 2022-06-30 11:01 | XMS_ITS | Encounter Summary ---
:1950 Author Organization [place] Address [address] [place] [address] Care Team Providers Name Role Phone Ingrid Santana RN Unavailable Unavailable Momo Forbes Primary Care Provider Reason for Visit Reason Onset Date Comments Refill Request 02/12/2014 clotrimazole Encounter Details Date Type Department Care Team Description 02/12/2014 Refill Nephrology Kaitlynn Leon MD Refill Request 2nd Floor, Clinic 2A [facility] (clotrimazole) [address] [id number] [phone] Social History Tobacco Use Types Packs/Day Years [...] one month supply. Thanks! Lianne Braswell PharmD [facility] [phone] documented in this encounter Plan of Treatment Not on filedocumented as of this encounter Visit Diagnoses Diagnosis S/P kidney transplant Kidney replaced by transplant documented in this encounter Care Teams Labor And Delivery Nurse Relationship Specialty Start Date End Date Momo Forbes PCP - General Family Practice 01/02/14 [facility] [address] [place] [address] Ingrid Santana, RN Registered Nurse Transplant 02/10/12 documented as of this encounter
--- OUTSIDE RECORDS SUMMARY | 2022-06-30 11:01 | XMS_ITS | Encounter Summary ---
:1950 Author Organization [place] Address [facility] [place] [address] Care Team Providers Name Role Phone Ingrid Santana RN Unavailable Unavailable Momo Forbes Primary Care Provider Reason for Visit Reason Comments Eval/Assessment LBA Encounter Details Date Type Department Care Team Description 02/11/2014 Infusion Therapy Specialty Infusion Finger, Migel Mac y replaced by Visit and Procedure MD Nathan transplant (Primary Center [address] [place] [address] Dx) [facility] [place] [address] 5 [facility] 2nd Floor [address] [phone] [place], [place] (Work) [phone] Social History Tobacco Use [...] Dear Diego Guthrie Thank you for choosing [facility] ([facility]) for your transplant cares. The [...] regarding the result at your appointment in [facility] tomorrow. We look forward in seeing you on your next appointment here at [facility]. Please don???t hesitate to callus at [phone] to reschedule any of your appointments or to speak with one of the [facility] registered nurses. It was a pleasure taking care of you today. Sincerely, Gladis Olvera RN [facility] [address] [place] [address]. [place] [address] documented in this encounter Progress Notes Gladis Olvera RN - 02/11/2014 8:43 AM CDT Diego Guthrie came to [facility] today for a lab and assess following a Kidney transplant on 02/02/14. Discharge date: 02/08/14 it project coordinator: Leandro Kahn Phone number patient can be reached at: [phone] Physical Assessment: See physical assessment located under Document Flowsheets. Incision site: Dry dressing with modesta. Dressing changed. Small amt oozing, Small amt ecchymosis. Pt instructed on signs/symptoms of infection. Some swelling under incision, pt has known hematoma andwill have a renal ultrasound today at 2pm. Lines: MARGARET drain to bulb suction, serosanguinous drainage. 20 ml at [facility] appointment today. Gibbs: n/a Urine clarity: clear per patient report Hydration: discussed drinking 2-3 L daily Nutrition: Pt states appetite is improving Last BM: 02/10/14 evening Pain: 2 at rest, 5 with activity. Pain adequately controlled with home medications Laboratory tests: Standard labs drawn. Plan of care for today: Pt presents to [facility] for Labs & Assessment following Kid Txp on 02/02/14. Pt's creatinine up to 1.97 today, but ok per Dr. Leon considering the complications with transplant. Hgb 7.4 and pt c/o slight fatigue. Discussed with Dr. Leon and will hold off on a transfusion for now, but will continue to monitor hgb at [facility] appointments over the next 2 days. INR 2.23, EKG obtained and pt found to be in Normal Sinus Rhythm. Pt will remain on coumadin for now and will follow up with a forging roll operator near [facility]. Continue daily INRs while pt is coming to [facility]. Pt's MARGARET continues to drain more [...] Discharge Plan Pt will follow up with [facility] tomorrow. 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/Civil Cadd Technician verbalized understanding, all questions answered: YES [...] Results Tacrolimus level (02/11/2014 7:40 AM CDT) [facility] gist Method Time Signature Tacrolimus Last 02/10/14 [facility] Dose 2000 [facility] LABS Tacrolimus 12.2 5.0 - [facility] Level 15.0 ug/L [facility] LABS Comment: Tacrolimus Reference [...] Phon e Number [facility] 500 [place], [place] [id number] [place] [address] LABS (ABNORMAL) CBC with platelets differential (02/11/2014 7:40 AM CDT) [facility] gist Method Time Signature WBC 4.4 4.0 - [facility] 11.0 [facility] 10e9/L [place] LABS RBC Count 2.39 (L) 4.4 - 5.9 [facility] 10e12/L [facility] LABS Hemoglobin 7.4 (L) 13.3 - [facility] 17.7 g/dL [facility] LABS Hematocrit 22.1 (L) 40.0 - [facility] 53.0 % [facility] LABS MCV 93 78 - 100 [facility] fl [facility] LABS MCH 31.0 26.5 - [facility] 33.0 pg [facility] LABS MCHC 33.5 31.5 - [facility] 36.5 g/dL [facility] LABS RDW 14.7 10.0 - [facility] 15.0 % [facility] LABS Platelet Count 83 (L) 150 - 450 [facility] 10e9/L [facility] LABS Diff Method Automated [facility] Method [facility] LABS % Neutrophils 80.4 % [facility] LABS % Lymphocytes 8.2 % [facility] LABS % Monocytes 5.2 % [facility] LABS % Eosinophils 5.7 % [facility] LABS % Basophils 0.0 % [facility] LABS % Immature 0.5 % [facility] Granulocytes [facility] LABS Absolute 3.5 1.6 - 8.3 [facility] Neutrophil 10e9/L [facility] LABS Absolute 0.4 (L) 0.8 - 5.3 [facility] Lymphocytes 10e9/L [facility] LABS Absolute 0.2 0.0 - 1.3 [facility] Monocytes 10e9/L [facility] LABS Absolute 0.3 0.0 - 0.7 [facility] Eosinophils 10e9/L [facility] LABS Absolute 0.0 0.0 - 0.2 [facility] Basophils 10e9/L [facility] LABS Abs Immature 0.0 0 - 0.4 [facility] Granulocytes 10e9/L [facility] LABS Specimen Anatomical Collection Method Collection Time Receive d Time (Source) Location / / Volume Laterality Blood specimen 02/11/2014 7:40 AM 014 7:41 (specimen) CDT AM CDT Kaitlynn Leon MD LAB - BLOOD ORDERABLES Performing Organization Address City/[facility]/ZIP Code Phon e Number [facility] [address] LABS (ABNORMAL) Phosphorus (02/11/2014 7:40 AM CDT) athologist Signature Phosphorus 1.9 (L) 2.5 - 4.5 [facility] mg/dL [place] LABS Specimen Anatomical Collection Method Collection Time Receive d Time (Source) Location / / Volume Laterality Blood specimen 02/11/2014 7:40 AM 014 7:41 (specimen) CDT AM CDT Kaitlynn Leon MD LAB - BLOOD ORDERABLES Performing Organization Address City/[facility]/ZIP Code Phon e Number [address] LABS Magnesium (02/11/2014 7:40 AM CDT) athologist Signature Magnesium 1.9 1.6 - 2.3 [facility] mg/dL [place] LABS Specimen Anatomical Collection Method Collection Time Receive d Time (Source) Location / / Volume Laterality Blood specimen 02/11/2014 7:40 AM 014 7:41 (specimen) CDT AM CDT Kaitlynn Leon MD LAB - BLOOD ORDERABLES Performing Organization Address City/[facility]/ZIP Code Phon e Number [address] LABS (ABNORMAL) Basic metabolic panel (02/11/2014 7:40 AM CDT) [facility] Method Time Signature Sodium 142 133 - 144 [facility] mmol/L [facility] LABS Potassium 5.4 (H) 3.4 - 5.3 [facility] mmol/L [facility] LABS Chloride 113 (H) 94 - 109 [facility] mmol/L [facility] LABS Carbon Dioxide 22 20 - 32 [facility] mmol/L [facility] LABS Anion Gap 8 6 - 17 [facility] mmol/L [facility] LABS Glucose 155 (H) 60 - 99 [facility] mg/dL [facility] LABS Urea Nitrogen 31 (H) 7 - 30 [facility] mg/dL [facility] LABS Creatinine 1.97 (H) 0.66 - [facility] 1.25 mg/dL [facility] LABS GFR Estimate 35 (L) >60 [facility] mL/min/1.7 [place] m2 [facility]AMP[facility] LABS GFR Estimate If 42 (L) >60 [facility] Black mL/min/1.7 [place] [address] CAMPUS LABS Calcium 9.1 8.5 - 10.4 [facility] mg/dL [facility] LABS Specimen Anatomical Collection Method Collection Time Receive d Time (Source) Location / / Volume Laterality Blood specimen 02/11/2014 7:40 AM 014 7:41 (specimen) CDT AM CDT Kaitlynn Leon MD LAB - BLOOD ORDERABLES Performing Organization Address City/State/ZIP Code Phon e Number [id number] [place], [place] [address] [facility] LABS documented in this encounter Visit Diagnoses Diagnosis Kidney replaced by transplant - Primary documented in this encounter Care Teams Metal Furrer Relationship Specialty Start Date End Date Momo Forbes PCP - General Family Practice 01/02/14 [facility] [address] [place] [address] Ingrid Santana, RN Registered Nurse Transplant 02/10/12 documented as of this encounter
--- OUTSIDE RECORDS SUMMARY | 2022-06-30 11:01 | XMS_ITS | Encounter Summary ---
:1950 Author Organization [place] Address Formerly [facility], [id number] [place] [address] Care Team Providers Name Role Phone Ingrid Santana RN Unavailable Unavailable Momo Forbes Primary Care Provider Reason for Visit Reason Comments Eval/Assessment LABS, ASSESSMENT, EDUCATION AND DRESSING CHANGE. Encounter Details Date Type Department Care Team Description 02/14/2014 Infusion Therapy Specialty Infusion Kaitlynn Leon MD Kidney replaced by transplant (Primary D x); Visit and Procedure Center [facility] S/P kidney transplant [facility] [address] [phone] [place], [place] (Work) [phone] Social History Tobacco Use Types Packs/Day Years Used Date Smoking Tobacco: Former Cigars Quit : 08/22/2006 Smokeless Tobacco: Never Alcohol Use Standard Drinks/Week Comments Yes 0 (1 standard drink = 0.6 oz pure alcoho l) occasional drink. Sex Assigned at Date Recorded Not on file documented as of this encounter Progress Notes Jose Plata RN - 02/14/2014 3:25 PM CDT Digeo Guthrie came to [facility] today for a lab and assess following a Kidney transplant on 02/02/14. Discharge date: 02/08/14 community outreach coordinator: Leandro Kahn Phone number patient can be reached at: [phone] Physical Assessment: See physical assessment located under [...] Tuesday. 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/Aircraft Restorer verbalized understanding, all questions answered: YES Discharged [...] e Number [facility] [address] [place], [place] [phone] [place] [address] LABS Tacrolimus level (02/14/2014 7:51 AM CDT) [facility] gist Method Time Signature Tacrolimus Last 1914 [facility] Dose 02/13/14 [facility] LABS Tacrolimus 7.5 5.0 - [facility] Level 15.0 ug/L [facility] LABS Comment: Tacrolimus Reference Range [...] e Number [facility] [address] [facility] (ABNORMAL) CBC with platelets differential (02/14/2014 7:51 AM CDT) [facility] gist Method Time Signature WBC 6.9 4.0 - [facility] 11.0 [place] 10e9/L [place] LABS RBC Count 2.55 (L) 4.4 - 5.9 [facility] 10e12/L [facility] LABS Hemoglobin 7.8 (L) 13.3 - [facility] 17.7 g/dL [facility] LABS Hematocrit 23.4 (L) 40.0 - [facility] 53.0 % [facility] LABS MCV 92 78 - 100 [facility] fl [facility] LABS MCH 30.6 26.5 - [facility] 33.0 pg [facility] LABS MCHC 33.3 31.5 - [facility] 36.5 g/dL [facility] LABS RDW 14.9 10.0 - [facility] 15.0 % [facility] LABS Platelet Count 122 (L) 150 - 450 [facility] 10e9/L [facility] LABS Diff Method Automated [facility] Method [facility] % Neutrophils 88.7 % [facility] LABS % Lymphocytes 2.6 % [facility] LABS % Monocytes 4.5 % [facility] LABS % Eosinophils 3.8 % [facility] % Basophils 0.1 % [facility] % Immature 0.3 % [facility] Granulocytes [facility] LABS Absolute 6.1 1.6 - 8.3 [facility] Neutrophil 10e9/L [facility] LABS Absolute 0.2 (L) 0.8 - 5.3 [facility] Lymphocytes 10e9/L [facility] LABS Absolute 0.3 0.0 - 1.3 [facility] Monocytes 10e9/L [facility] LABS Absolute 0.3 0.0 - 0.7 [facility] Eosinophils 10e9/L [facility] LABS Absolute 0.0 0.0 - 0.2 [facility] Basophils 10e9/L [facility] LABS Abs Immature 0.0 0 - 0.4 [facility] Granulocytes 10e9/L [facility] LABS Specimen Anatomical Collection Method Collection Time Receive d Time (Source) Location / / Volume Laterality Blood specimen 02/14/2014 7:51 AM 014 7:53 (specimen) CDT AM CDT Joseph Quintana MD LAB - BLOOD ORDERABLES Performing Organization Address City/State/ZIP Code Phon e Number [address] LABS (ABNORMAL) Phosphorus (02/14/2014 7:51 AM CDT) P athologist Signature Phosphorus 2.4 (L) 2.5 - 4.5 [facility] mg/dL [place] LABS Specimen Anatomical Collection Method Collection Time Receive d Time (Source) Location / / Volume Laterality Blood specimen 02/14/2014 7:51 AM 014 7:53 (specimen) CDT AM CDT Joseph Quintana MD LAB - BLOOD ORDERABLES Performing Organization Address City/State/ZIP Code Phon e Number [address] LABS Magnesium (02/14/2014 7:51 AM CDT) athologist Signature Magnesium 1.6 1.6 - 2.3 [facility] mg/dL CAMPUS LABS Specimen Anatomical Collection Method Collection Time Receive d Time (Source) Location / / Volume Laterality Blood specimen 02/14/2014 7:51 AM 014 7:53 (specimen) CDT AM CDT Joseph Quintana MD LAB - BLOOD ORDERABLES Performing Organization Address City/[facility]/ZIP Code Phon e Number [facility] [address] [place] [address] [facility] LABS (ABNORMAL) Basic metabolic panel (02/14/2014 7:51 AM CDT) [facility] Method Time Signature Sodium 143 133 - 144 [facility] mmol/L [facility] LABS Potassium 5.4 (H) 3.4 - 5.3 [facility] mmol/L [facility] LABS Chloride 113 (H) 94 - 109 [facility] mmol/L [facility] LABS Carbon Dioxide 20 20 - 32 [facility] mmol/L [facility] LABS Anion Gap 9 6 - 17 [facility] mmol/L [facility] LABS Glucose 193 (H) 60 - 99 [facility] mg/dL [facility] LABS Urea Nitrogen 18 7 - 30 [facility] mg/dL [facility] LABS Creatinine 1.82 (H) 0.66 - [facility] 1.25 mg/dL [facility] LABS GFR Estimate 38 (L) >60 [facility] mL/min/1.7 [facility]2 [facility] LABS GFR Estimate If 46 (L) >60 [facility] Black mL/min/1.7 [place] m2 [facility]AMPUS LABS Calcium 9.2 8.5 - 10.4 [facility] mg/dL [facility] LABS Specimen Anatomical Collection Method Collection Time Receive d Time (Source) Location / / Volume Laterality Blood specimen 02/14/2014 7:51 AM 014 7:53 (specimen) CDT AM CDT Joseph Quintana MD LAB - BLOOD ORDERABLES Performing Organization Address City/[facility]/ZIP Code Phon e Number [facility] [address] [place] [address] [facility] LABS documented in this encounter Visit Diagnoses Diagnosis Kidney replaced by transplant - Primary S/P kidney transplant Kidney replaced by transplant documented in this encounter Care Teams Cosmetics Demonstrator Relationship Specialty Start Date End Date Momo Forbes PCP - General Family Practice 01/02/14 [facility] [address] [place] [address] Ingrid Santana, RN Registered Nurse Transplant 02/10/12 16 documented as of this encounter
--- OUTSIDE RECORDS SUMMARY | 2022-06-30 11:01 | XMS_ITS | Encounter Summary ---
:1950 Author Organization [place] Address [facility] [place] [address] Care Team Providers Name Role Phone Ingrid Santana RN Unavailable Unavailable Momo Forbes Primary Care Provider Reason for Visit Reason Comments Eval/Assessment LBA Encounter Details Date Type Department Care Team Description 02/11/2014 Office Visit Specialty Infusion Kaitlynn Leon, Complica tion of transplanted kidney (Primary Dx); and Procedure Center Anemia; [place]ste[place] [facility] HTN (hy pertension); [facility] Immunosuppression (H); 2nd Floor [address] Hypophosphatemia 6 [facility] [address] [place], [place] [phone] (Work) [phone] Social History Tobacco Use Types Packs/Day Years [...] Years of Education: 14 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 Using medbox: Yes Viewed DVD: Didn't bring up Pain: #2-3, feels good, rarely using Oxycodone Other Concerns: none No further questions for this pharmacist. Yi Londono [facility] [phone] documented in this encounter Plan of Treatment [...] 2.28 (H) 0.86 - 1.14 [facility] LABS Specimen Anatomical Collection Method Collection Time Receive d Time (Source) Location / / Volume Laterality 02/11/2014 9:30 AM 4 9:41 CDT AM CDT Kaitlynn Leon MD LAB - BLOOD ORDERABLES Performing Organization Address City/State/ZIP Code Phon e Number [phone] [place] [address] LABS documented in this encounter Visit Diagnoses Diagnosis Complication of transplanted kidney - Pr imary Complications of transplanted kidney Anemia Anemia, unspecified HTN (hypertension) Unspecified essential hypertension Immunosuppression (H) Unspecified disorder of immune mechanism Hypophosphatemia Disorders of phosphorus metabolism documented in this encounter Care Teams Receptionist Doctor'S Office Relationship Specialty Start Date End Date Momo Forbes PCP - General Family Practice 01/02/14 [facility] [address] [place] [address] Ingrid Santana, RN Registered Nurse Transplant 02/10/12 documented as of this encounter
--- OUTSIDE RECORDS SUMMARY | 2022-06-30 11:01 | XMS_ITS | Encounter Summary ---
:1950 Author Organization [place] Address [facility]0 [facility] [place] [address] Care Team Providers Name Role Phone Ingrid Santana RN Unavailable Unavailable Momo Forbes Primary Care Provider Reason for Visit Reason Comments Surgical Followup Post op for kidney transplan t POD 16 Encounter Details Date Type Department Care Team Description 02/18/2014 Office Visit Transplant Surgery Migel Merchant S/P jamari y transplant (Primary Dx); Clinic MD Nathan Postop check; 2nd Floor, Clinic [address]A [address] [place] Immunosuppression (H); [facility] 1 95 Atrial fibrillation (H) [phone] [place] [address] [place], [place] (Work) [phone] Social History Tobacco [...] fibrillation documented in this encounter Care Teams Street Contractor Relationship Specialty Start Date End Date Momo Forbes PCP - General Family Practice 01/02/[address] [address] Ingrid Santana, RN Registered Nurse Transplant 02/10/12 documented as of this encounter
--- OUTSIDE RECORDS SUMMARY | 2022-06-30 11:01 | XMS_ITS | Encounter Summary ---
:1950 Author Organization [place] Address [facility] [place] [address] Care Team Providers Name Role Phone Ingrid Santana RN Unavailable Unavailable Momo Forbes Primary Care Provider Reason for Visit Reason Comments Eval/Assessment LBA Encounter Details Date Type Department Care Team Description 02/14/2014 Office Visit Specialty Infusion Edward, Naim S, Kidney r eplaced by transplant (Primary Dx); and Procedure Center Immunosuppression (H); Arpita [facility] Hyperka lemia; [facility] Hypophosphatemia; 2nd Floor [address] Atrial fibrillation (H); [address] [place], [place] Anemia; [place] [address] HTN (hypertension) [place], [place] [phone] (Work) [phone] Social History Tobacco Use Types Packs/Day Years [...] Years of Education: 14 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
--- OUTSIDE RECORDS SUMMARY | 2022-06-30 11:01 | XMS_ITS | Encounter Summary ---
:1950 Author Organization [place] Address [facility]0 [facility] [place] [address] Care Team Providers Name Role Phone Ingrid Santana RN Unavailable Unavailable Momo Forbes Primary Care Provider Reason for Visit Reason Comments Eval/Assessment LBA Encounter Details Date Type Department Care Team Description 02/12/2014 Infusion Therapy Specialty Infusion Finger, Migel Mac y replaced by Visit and Procedure MD Nathan transplant (Primary Center [address] [place] [address] Dx) [facility] [place] [address] 5 [facility] 2nd Floor [address] [phone] [place], [place] (Work) [phone] Social History Tobacco Use [...] Dear Diego Guthrie Thank you for choosing [facility] ([facility]) for your transplant cares. The following information is a summary of our appointment as well as important reminders. Additional information: We will see you on for labs & assessment. We look forward in seeing you on your next appointment here at [facility]. Please don???t hesitate to callus at [phone] to reschedule any of your appointments or to speak with one of the [facility] registered nurses. It was a pleasure taking care of you today. Sincerely, Gladis Olvera, BOGDAN [facility] [address] [place] [address] January 2014Tuesday 1 2 3 4 5 6 7 8 9 10 11 12 13 14 Admission 12:55 PM Migel Merchant MD [address] [facility] [place] (Discharge: 02/08/2014) XR CHEST 2 VIEWS 1:55 PM (10 min.) Uuxr1 [facility], Radiology TRANSPLANT KIDNEY RECIPIENT DONOR 4:00 PM Migel Merchant MD UU OR XR CHEST PORT 2 VIEWS 11:10 PM (15 min.) Uuxrph1 [facility], Radiology 15 US RENAL TRANSPLANT 7:50 AM (50 min.) Uuus2 [facility], Ultrasound 16 IP EVALUATION 6:00 AM (60 min.) Angela Wilder, PT [facility], Physical Therapy UU TRANSPLANT MEDICATIONS 11:00 AM (120 min.) Josseline Almendarez, BOGDAN [facility], Patient Learning Center UU TRANSPLANT FOLLOW-UP CARE 1:00 PM (120 min.) Josseline Almendarez RN [facility] [place], Patient Learning Center ECH LIMITED 3:35 PM (60 min.) Uuechipr1 [facility], Echocardiography 17 IP TREATMENT 5:30 AM (30 min.) Roderick Lawson, PT [facility], Physical Therapy 18 IP TREATMENT 5:30 AM (30 min.) Yesenia Rodriguez, PT [facility], Physical Therapy 19 IP TREATMENT 5:30 AM (30 min.) Reina Kenny, PT [facility], Physical Therapy US RENAL 11:15 AM (60 min.) Uuus2 [facility], Ultrasound 20 IP TREATMENT 5:30 AM (30 min.) Reina Kenny, PT [facility], Physical Therapy UU TRANSPLANT MEDICATIONS 11:00 AM (120 min.) Em Mohan, RN [facility], Patient Learning Center 21 [facility] NEW TRANSPLANT 7:00 AM (360 min.) [facility] Sipc Chair 9 Specialty Infusion and Procedure Center 22 [facility] NEW TRANSPLANT 7:00 AM (360 min.) [facility] Sipc Chair 11 Specialty Infusion and Procedure Center 23 [facility] NEW TRANSPLANT 7:00 AM (360 min.) [facility] Sipc Chair 12 Specialty Infusion and Procedure Center [facility] KIDNEY TX DISCHARGE 9:00 AM (30 min.) Kaitlynn Leon MD Specialty Infusion and Procedure Center US RENAL TRANSPLANT 2:00 PM (60 min.) [address] 24 [facility] NEW TRANSPLANT 7:00 AM (360 min.) [facility] Sipc Bed 14 Specialty Infusion and Procedure Center [facility] SIPC RETURN 9:00 AM (30 min.) Kaitlynn Leon MD Specialty Infusion and Procedure Center 25 26 [facility] SIPC PROCEDURE 7:00 AM (60 min.) [facility] Sipc Chair 9 Specialty Infusion and Procedure Center [facility] SIPC RETURN 8:00 AM (30 min.) Kaitlynn Leon MD Specialty Infusion and Procedure Center 27 28 29 30 [facility] NEW 9:00 AM (30 min.) [facility] Cvc Consult [facility] Heart [facility] KIDNEY POST OP 1:45 PM (15 min.) [...] 4:27 PM CDT Diego Guthrie came to [facility] today for a lab and assess following a Kidney transplant on 02/02/14. Discharge date: 02/08/14 regulatory coordinator: Leandro Kahn Phone number patient can be reached at: [phone] Physical Assessment: See physical assessment located under Document Flowsheets. Incision site: with modesta & slight ecchymosis. Dry dressing changed. Lines: MARGARET drain to bulb suction is draining sero sanguinous fluid. Continues to drain more than 30 ml/day. Pt will have Tuesday off from [facility] and will return for LBA. Gibbs: N/A [...] of care for today: Pt presented to [facility] for labs and assessment. Labs drawn, reviewed with Dr. Leon. Oral phosphorus tablets ordered. Coumadin dose decreased to 5 mg every evening. Pt will have Tuesday off, return and will start with [facility] Nursing on TuesdayFebruary 15. Pt's MARGARET [...] Discharge Plan Pt will follow up with [facility] on 02/14 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/Degreasing Solution Mixer verbalized understanding, all questions answered: YES Discharged [...] Signature INR 2.64 (H) 0.86 - 1.14 [facility] LABS Specimen Anatomical Collection Method Collection Time Receive d Time (Source) Location / / Volume Laterality Blood specimen 02/12/2014 7:41 AM 014 7:43 (specimen) CDT AM CDT Kaitlynn Leon MD LAB - BLOOD ORDERABLES Performing Organization Address City/State/ZIP Code Phon e Number [facility] [address] [place] [address] [facility] LABS Tacrolimus level (02/12/2014 7:41 AM CDT) [facility] gist Method Time Signature Tacrolimus Last 02/11/14 [facility] Dose [address] [facility] LABS Tacrolimus 8.4 5.0 - [facility] Level 15.0 ug/L [facility] [...] Phon e Number [facility] [address] [place] [address] [facility] LABS (ABNORMAL) CBC with platelets differential (02/12/2014 7:41 AM CDT) Patholo gist Method Time Signature WBC 5.0 4.0 - [facility] 11.0 [place] 10e9/L [place] LABS RBC Count 2.41 (L) 4.4 - 5.9 [facility] 10e12/L [facility] LABS Hemoglobin 7.4 (L) 13.3 - [facility] 17.7 g/dL [facility] LABS Hematocrit 22.3 (L) 40.0 - [facility] 53.0 % [facility] LABS MCV 93 78 - [address] [facility] [address] [facility] LABS MCH 30.7 26.5 - [facility] 33.[address] [facility] LABS MCHC 33.2 31.5 - [facility] 36.5 g/dL [facility] LABS RDW 14.5 10.0 - [facility] 15.0 % [facility] LABS Platelet Count 95 (L) 150 - 450 [facility] 10e9/L [facility] LABS Diff Method Automated [facility] Method [facility] LABS % Neutrophils 85.2 % [facility] LABS % Lymphocytes 5.6 % [facility] % Monocytes 4.6 % [facility] LABS % Eosinophils 4.2 % [facility] % Basophils 0.2 % [facility] % Immature 0.2 % [facility] Granulocytes [facility] LABS Absolute 4.3 1.6 - 8.3 [facility] Neutrophil 10e9/L [facility] LABS Absolute 0.3 (L) 0.8 - 5.3 [facility] Lymphocytes 10e9/L [facility] LABS Absolute 0.2 0.0 - 1.3 [facility] Monocytes 10e9/L [facility] LABS Absolute 0.2 0.0 - 0.7 [facility] Eosinophils 10e9/L [facility] [...] Phon e Number [facility] [address] [place], [place] [id number] [place] [address] LABS (ABNORMAL) Phosphorus (02/12/2014 7:41 AM CDT) P athologist Signature Phosphorus 1.7 (L) 2.5 - 4.5 [facility] mg/dL [facility]AMPUS LABS Specimen Anatomical Collection Method Collection Time Receive d Time (Source) Location / / Volume Laterality Blood specimen 02/12/2014 7:41 AM 014 7:43 (specimen) CDT AM CDT Kaitlynn Leon MD LAB - BLOOD ORDERABLES Performing Organization Address City/[facility] Phon e Number [facility] [address] LABS Magnesium (02/12/2014 7:41 AM CDT) athologist Signature Magnesium 1.8 1.6 - 2.3 [facility] mg/dL CAMPUS LABS Specimen Anatomical Collection Method Collection Time Receive d Time (Source) Location / / Volume Laterality Blood specimen 02/12/2014 7:41 AM 014 7:43 (specimen) CDT AM CDT Kaitlynn Leon MD LAB - BLOOD ORDERABLES Performing Organization Address City/State/[facility] Code Phon e Number [facility] [address] [place], [place] [phone] [place] [address] LABS (ABNORMAL) Basic metabolic panel (02/12/2014 7:41 AM CDT) [facility] gist Method Time Signature Sodium 142 133 - 144 [facility] mmol/L [facility] LABS Potassium 4.9 3.4 - 5.3 [facility] mmol/L [facility] LABS Chloride 113 (H) 94 - 109 [facility] mmol/L [facility] LABS Carbon Dioxide 21 20 - 32 [facility] mmol/L [facility] LABS Anion Gap 9 6 - 17 [facility] mmol/L [facility] LABS Glucose 127 (H) 60 - 99 [facility] mg/dL [facility] LABS Urea Nitrogen 24 7 - 30 [facility] mg/dL [facility] LABS Creatinine 1.92 (H) 0.66 - [facility] 1.25 mg/dL [facility] LABS GFR Estimate 36 (L) >60 [facility] mL/min/1.7 [place] m2 CAMPUS LABS GFR Estimate If 43 (L) >60 [facility] Black mL/min/1.7 [place] [address] CAMPUS LABS Calcium 8.9 8.5 - 10.4 [facility] mg/dL [facility] LABS Specimen Anatomical Collection Method Collection Time Receive d Time (Source) Location / / Volume Laterality Blood specimen 02/12/2014 7:41 AM 014 7:43 (specimen) CDT AM CDT Kaitlynn Leon MD LAB - BLOOD ORDERABLES Performing Organization Address City/State/ZIP Code Phon e Number [facility] [address] [place] [address] [facility] LABS documented in this encounter Visit [...] after. documented in this encounter Care Teams Lead Bi Developer Relationship Specialty Start Date End Date Momo Forbes PCP - General Family Practice 01/02/[address] [address] Ingrid Santana, RN Registered Nurse Transplant 02/10/12 documented as of this encounter
--- OUTSIDE RECORDS SUMMARY | 2022-06-30 11:01 | XMS_ITS | Encounter Summary ---
:1950 Author Organization [place] Address [facility] [place] [address] Care Team Providers Name Role Phone Ingrid Santana RN Unavailable Unavailable Momo Forbes Primary Care Provider Reason for Visit Reason Onset Date Comments Refill Request 02/15/2014 Encounter Details Date Type Department Care Team Description 02/15/2014 Refill Nephrology Shiva Kahn RN Refill Request 2nd Floor, Clinic 2A [facility] [place] Wangensteen [address] [facility]2 [place], [place] [phone] [address] [place] [phone] Social History Tobacco Use Types Packs/Day [...] filedocumented in this encounter Care Teams Solar Photovoltaic Crew Lead Relationship Specialty Start Date End Date Momo Forbes PCP - General Family Practice 01/02/14 [facility] [address] [place] [address] Ingrid Santana RN Registered Nurse Transplant 02/10/12 documented as of this encounter
--- OUTSIDE RECORDS SUMMARY | 2022-06-30 11:01 | XMS_ITS | Encounter Summary ---
:1950 Author Organization [place] Address [address] [place] [address]. [place] [address] Care Team Providers Name Role Phone Ingrid Santana RN Unavailable Unavailable Momo Forbes Primary Care Provider Encounter Details Date Type Department Care Team Description 02/18/2014 Orders Only Nephrology Shiva Kahn, -donor kidney transp lant recipient (Primary Dx); 2nd Floor, Clinic 2A RN High risk medications (not anticoagulant s) long-term use; Tommy Wilburn [facility] CATY HIGGINS terminal makeup operator (current) use of anticoagulant s [place] [id number] [place] [phone] Social History Tobacco Use Types Packs/Day Years [...] for long-term (current) use of other medications terminal makeup operator (current) use of anticoagulant s Long-term (current) use of anticoagulant s documented in this encounter Care Teams Binder Fixer Relationship Specialty Start Date End Date Momo Forbes PCP - General Family Practice 01/02/14 [facility] [address] [place], [place] [phone] Ingrid Santana, RN Registered Nurse Transplant 02/10/12 documented as of this encounter
--- OUTSIDE RECORDS SUMMARY | 2022-06-30 11:01 | XMS_ITS | Encounter Summary ---
:1950 Author Organization [place] Address [address] [place] [address]. [place] [address] Care Team Providers Name Role Phone Ingrid Santana RN Unavailable Unavailable Momo Forbes Primary Care Provider Encounter Details Date Type Department Care Team Description 02/18/2014 Orders Only Nephrology Shiva Kahn RN -donor kidney transplant recipie nt (Primary Dx); 2nd Floor, Clinic 2A [facility] Kidney replaced by transplant; Tommy Ruizensteen 420 [facility] S/P kidney transplant Building [address] [place] [phone] Social History Tobacco Use Types Packs/Day Years [...] documented in this encounter Care Teams Dinkey Engine Firer/Fireman Relationship Specialty Start Date End Date Momo Forbes PCP - General Family Practice 01/02/14 [facility] [address] [place] [address] Ingrid Santana RN Registered Nurse Transplant 02/10/12 documented as of this encounter
--- OUTSIDE RECORDS SUMMARY | 2022-06-30 11:01 | XMS_ITS | Encounter Summary ---
:1950 Author Organization [place] Address [address] [place] [address] Care Team Providers Name Role Phone Ingrid Santana RN Unavailable Unavailable Momo Forbes Primary Care Provider Reason for Visit Reason Onset Date Comments Previsit 02/15/[address] Merchant 02/18 Encounter Details Date Type Department Care Team Description 02/15/2014 Telephone Transplant Surgery Radha Acosta LPN Prev isit (Appt with Dr Anthony Merchant 02/18) 2nd Floor, Clinic [address]A [address] [place] [address] Social History Tobacco Use Types [...] filedocumented in this encounter Care Teams Telegraph Printer Mechanic Relationship Specialty Start Date End Date Momo Forbes PCP - General Family Practice 01/02/14 [place] [id number] Ingrid Santana, RN Registered Nurse Transplant 02/10/12 documented as of this encounter
--- OUTSIDE RECORDS SUMMARY | 2022-06-30 11:01 | XMS_ITS | Encounter Summary ---
:1950 Author Organization [place] Address [facility] [place] [address] Care Team Providers Name Role Phone Ingrid Santana RN Unavailable Unavailable Momo Forbes Primary Care Provider Encounter Details Date Type Department Care Team Description 02/11/2014 Radiant Appointment [facility] 1st Floor, Clinic 1D [place], [place] [address] Social History Tobacco Use Types Packs/Day Years [...] Procedure Name Priority Date/Time Associated Diagnosis Comme [facility] US RENAL TRANSPLANT Routine 02/11/2014 2:48 [...] filedocumented in this encounter Care Teams Mail Order Sorter Relationship Specialty Start Date End Date Momo Forbes PCP - General Family Practice 01/02/14 [facility] [address] [place] [address] Ingrid Santana, RN Registered Nurse Transplant 02/10/12 documented as of this encounter
--- OUTSIDE RECORDS SUMMARY | 2022-06-30 11:01 | XMS_ITS | Encounter Summary ---
:1950 Author Organization [place] Address [address] [place] [address]. [place] [address] Care Team Providers Name Role Phone Ingrid [...] 12-lead, tracing only (02/18/2014 9:53 AM CDT) [facility] gist Method Time Signature Interpretation ECG Click [...] on filedocumented in this encounter Care Teams Lpn Rn Relationship Specialty Start Date End Date Momo Forbes PCP - General Family Practice 01/02/14 [facility] [address] [place] [address] Ingrid Santana, RN Registered Nurse Transplant 02/10/12 documented as of this encounter
--- OUTSIDE RECORDS SUMMARY | 2022-06-30 11:01 | XMS_ITS | Encounter Summary ---
:1950 Author Organization [place] Address [facility]0 [facility] [place] [address] Care Team Providers Name Role Phone Ingrid Santana RN Unavailable Unavailable Momo Raines Primary Care Provider Reason for Visit Reason Comments Consult consult for afib Encounter Details Date Type Department Care Team Description 02/18/2014 Office Visit [facility] (H[facility] (Primary Dx) Heart MD [facility] [place] 4th Floor, Clinic 4B [address] [phone] [place], [place] (Work) [address] [phone] Social History Tobacco Use Types Packs/Day Years [...] of Education: 14 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
--- OUTSIDE RECORDS SUMMARY | 2022-06-30 11:01 | XMS_ITS | Encounter Summary ---
:1950 Author Organization [place] Address [address] [place] [address] Care Team Providers Name Role Phone Ingrid Santana RN Unavailable Unavailable Momo Forbes Primary Care Provider Encounter Details Date Type Department Care Team Description 02/19/2014 Orders Only [facility], Joseph Conor [facility] jm [place] [address] [phone] [place] [address] 885 [place] [address] (Wo rk) Social History Tobacco [...] Results Tacrolimus level (03/19/2014 9:05 AM CDT) [facility] Method Time Signature Tacrolimus Last 03/18/14 [facility] Dose 2100 [facility] Tacrolimus 13.1 5.0 - [facility] Level 15.0 ug/L UNITED [...] Phon e Number [facility] 500 [place] [address] [facility] Tacrolimus level (03/12/2014 9:40 AM CDT) [facility] gist Method Time Signature Tacrolimus Not Provided [facility] Last Dose [facility] Tacrolimus 7.3 5.0 - [facility] Level 15.0 ug/L UNITED [...] Phon e Number [facility] [address] [place] [address] [facility] Tacrolimus level (03/08/2014 10:15 AM CDT) [facility] gist Method Time Signature Tacrolimus Last 03/07/14 [facility] Dose 2000 [facility] Tacrolimus 6.1 5.0 - [facility] Level 15.0 ug/L UNITED [...] Phon e Number [facility] 500 [place], [place] [phone] [place] [address] [facility] Tacrolimus level (03/06/2014 5:13 PM CDT) [facility] gist Method Time Signature Tacrolimus Last 1400 [facility] Dose 03/05/14 [facility] Tacrolimus 11.3 5.0 - [facility] Level 15.0 ug/L UNITED [...] Phon e Number [facility] [address] [place] [address] [facility] Tacrolimus level (03/01/2014 8:10 AM CDT) [facility] gist Method Time Signature Tacrolimus Last 02/28/14 [facility] Dose 1930 [facility] Tacrolimus 10.6 5.0 - [facility] Level 15.0 ug/L UNITED [...] Phon e Number [facility] 500 [place], [place] [phone] [place] [address] [facility] Tacrolimus level (02/27/2014 8:15 AM CDT) [facility] gist Method Time Signature Tacrolimus Last 02/26/14 [facility] Dose 2000 [facility] Tacrolimus 11.4 5.0 - [facility] Level 15.0 ug/L UNITED [...] Phon e Number [facility] 500 [place], [place] [phone] [place] [address] LABS HLA Lukasz Class II Single Antigen (02/25/2014 10:43 AM CDT) Component Value Ref Test Analysis Performed At [facility] Range Method Time Signature SA2 Test [...] Phon e Number [facility] Immunology/Histocompatabil [place], [place] [address] [facility] 500 [facility] [address] Building, Room 3-580 HISTOTRAC HLA Lukasz Class I Single Antigen (02/25/2014 10:43 AM CDT) Component Value Ref Test Analysis Performed At [facility] ScratchJr Range Method Time Signature SA1 Test SA [...] LAB - IMMUNOLOGY ORDERABLES Performing Organization Address City/[facility]/ZIP Code Phon e Number [facility] Immunology/[place], [place] [address] [facility] 500 [facility], Room 3-580 HISTOTRAC PRA Interfering Substance SCR (02/25/2014 10:43 AM CDT) Component Value Ref Test Analysis Performed At [facility] Absio Method Time Signature Interfering Luminex HISTOTRAC Substance [...] LAB - IMMUNOLOGY ORDERABLES Performing Organization Address City/[facility]/ZIP Code Phon e Number [facility] Immunology/[place], [place] [address] [facility] 500 [facility] J [facility], Room 3-580 HISTOTRAC Tacrolimus level (02/21/2014 8:45 AM CDT) [facility] ScratchJr Method Time Signature Tacrolimus Last 02/20/14 [facility] Dose 2000 [facility] Tacrolimus 7.9 5.0 - [facility] Level 15.0 ug/L UNITED [...] Phon e Number [facility] 500 [place] [address] [facility] LABS documented in this encounter Visit Diagnoses Not on filedocumented in this encounter Care Teams Corrugator Operator Relationship Specialty Start Date End Date Momo Forbes PCP - General Family Practice 01/02/14 [place] [id number] Ingrid Santana, RN Registered Nurse Transplant 02/10/12 documented as of this encounter
--- OUTSIDE RECORDS SUMMARY | 2022-06-30 11:01 | XMS_ITS | Encounter Summary ---
:1950 Author Organization [place] Address [address] [place] [address] Care Team Providers Name Role Phone Ingrid Santana RN Unavailable Unavailable Momo Forbes Primary Care Provider Reason for Referral CV Cardio consult - Closed Specialty Diagnoses / Procedures Referred By Contact Refer red To Contact Diagnoses Atrial fibrillation (H) Kaitlynn Leon MD [facility] [place] [address] [place] [address] Fax: Referral ID Status Reason Start Date Expiration Date Visits Requ ested Visits Authorized [id number] Closed 02/12/2014 08/11/2014 1 1 Reason for Visit Reason Comments RECHECK Encounter Details Date Type Department Care Team Description 02/12/2014 Office Visit Specialty Infusion Kaitlynn Leon, S/P kidn ey transplant (Primary Dx); and Procedure Center Atrial fibrillation (H); [facility] Hypopho sphatemia; [facility] Nausea; 2nd Floor [address] Immunosuppression (H) [address] [facility] [address] [place], [place] [phone] [address] (Work) [phone] Social History Tobacco Use Types Packs/Day Years [...] Dear Diego Guthrie Thank you for choosing [facility] ([facility]) for your transplant cares. The following information is a summary of our appointment as well as important reminders. Please make sure your phone is available today because I will call to update you with your anti-rejection drug levels and possibly make changes to your anti- rejection dosages. Additional information: -Decrease your coumadin dose to 5 mg every evening -Please return to [facility] on for Labs & assessment -Call us or Leandro Kahn with any questions. -Your Home Care Nurse should begin visits on TuesdayFebruary 14. If you do not hear from them by Tuesday morning, try to reach them at [phone]. We look forward in seeing you on your next appointment here at [facility]. Please don???t hesitate to callus at [phone] to reschedule any of your appointments or to speak with one of the [facility] registered nurses. It was a pleasure taking care of you today. 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
--- OUTSIDE RECORDS SUMMARY | 2022-06-30 11:01 | XMS_ITS | Encounter Summary ---
:1950 Author Organization [place] Address [facility] [place] [address] Care Team Providers Name Role Phone Ingrid Santana RN Unavailable Unavailable Momo Forbes Primary Care Provider Reason for Visit Reason Comments Eval/Assessment s/p kidney transplant 8days ago Encounter Details Date Type Department Care Team Description 02/10/2014 Infusion Therapy Specialty Infusion Finger, Migel Mac y replaced by Visit and Procedure MD Nathan transplant (Primary Center [address] [place] [address] Dx) [place] [address] 5 [facility] 2nd Floor [address] [phone] [place], [place] (Work) [phone] Social History Tobacco Use [...] 10:40 AM CDT Diego Guthrie came to [facility] today for a lab and assess 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 Discharge date: 02/08/14 drainage design coordinator: Leandro Kahn RN Phone number patient can be reached at: [phone] (girlfriend's cell) Physical Assessment: See physical assessment located under Document Flowsheets. Incision site: stapled, leaking tiny amount clear pink/pale yellow fluid from mid incision (1.5inch area on dressing from 3hours ago) covered with ABD Lines: MARGARET rlq; 30cc out last tamara; 10cc out overnite;; lite pink clear fluid Gibbs: na states is not having voiding difficulty Urine clarity: not asked Hydration: states he [id number] water yesterday but does not like that [...] Discharge Plan Pt will follow up with [facility] lab/assess in am 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/Injector Assembler verbalized understanding, all questions answered: YES Discharged [...] Results Tacrolimus level (02/10/2014 8:37 AM CDT) [facility] Method Time Signature Tacrolimus Not Provided [facility] Last Dose [facility] Tacrolimus 6.8 5.0 - [facility] Level 15.0 ug/L [facility] Comment: Tacrolimus Reference Range Kidney Transplant [...] e Number [facility] [address] [place], [place] [phone] [place] [address] LABS (ABNORMAL) CBC with platelets differential (02/10/2014 8:37 AM CDT) Component Value Ref Test Analysis Performed At [facility] gist Range Method Time Signature WBC 5.5 4.0 - [facility] 11.0 [place] [facility] 10e9/L RBC Count 2.53 (L) 4.4 - [facility] 5.9 [place] [facility] 10e12/L Hemoglobin 7.9 (L) 13.3 - [facility] 17.7 [place] [facility] g/dL Hematocrit 23.2 (L) 40.0 - [facility] 53.0 % CAMPUS LABS MCV 92 78 - 100 [facility] fl CAMPUS LABS MCH 31.2 26.5 - [facility] 33.0 pg CAMPUS LABS MCHC 34.1 31.5 - [facility] 36.5 CAMPUS LABS g/dL RDW 14.5 10.0 - [facility] 15.0 % CAMPUS LABS Platelet Count 89 (L) 150 - [facility] 450 CAMPUS LABS 10e9/L Diff [...] Code Phon e Number [facility] [id number] DIFFERENTIAL [facility] LABS (ABNORMAL) Phosphorus (02/10/2014 8:37 AM CDT) P athologist Signature Phosphorus 1.9 (L) 2.5 - 4.5 [facility] mg/dL CAMPUS LABS Specimen Anatomical Collection Method Collection Time Receive d Time (Source) Location / / Volume Laterality Blood specimen 02/10/2014 8:37 AM 014 8:38 (specimen) CDT AM CDT Migel Merchant MD LAB - BLOOD ORDERABLES Performing Organization Address City/State/ZIP Code Phon e Number [facility] [address] [place] [address] [facility] LABS Magnesium (02/10/2014 8:37 AM CDT) P athologist Signature Magnesium 2.0 1.6 - 2.3 [facility] mg/dL CAMPUS LABS Specimen Anatomical Collection Method Collection Time Receive d Time (Source) Location / / Volume Laterality Blood specimen 02/10/2014 8:37 AM 014 8:38 (specimen) CDT AM CDT Migel Merchant MD LAB - BLOOD ORDERABLES Performing Organization Address City/[facility] Code Phon e Number [facility] [address] [place] [address] [facility] LABS (ABNORMAL) Basic metabolic panel (02/10/2014 8:37 AM CDT) Patholo gist Method Time Signature Sodium 144 133 - 144 [facility] mmol/L [facility] LABS Potassium 4.8 3.4 - 5.3 [facility] mmol/L [facility]S Chloride 111 (H) 94 - 109 [facility] mmol/L [facility]S Carbon Dioxide 22 20 - 32 [facility] mmol/L [facility]S Anion Gap 10 6 - 17 [facility] mmol/L [facility] Glucose 128 (H) 60 - 99 [facility] mg/dL [facility]S Urea Nitrogen 34 (H) 7 - 30 [facility] mg/dL [facility]S Creatinine 1.80 (H) 0.66 - [facility] 1.25 mg/dL [facility] LABS GFR Estimate 38 (L) >60 [facility] mL/min/1.7 [facility] m2 CAMPUS LABS GFR Estimate If 46 (L) >60 [facility] Black mL/min/1.7 [place] [address] CAMPUS LABS Calcium 9.1 8.5 - 10.4 [facility] mg/dL [facility] LABS Specimen Anatomical Collection Method Collection Time Receive d Time (Source) Location / / Volume Laterality Blood specimen 02/10/2014 8:37 AM 014 8:38 (specimen) CDT AM CDT Migel Merchant MD LAB - BLOOD ORDERABLES Performing Organization Address City/State/ZIP Code Phon e Number [facility] [address] [place] [address] [facility] LABS documented in this encounter Visit Diagnoses Diagnosis Kidney replaced by transplant - Primary documented in this encounter Care Teams Accountancy Professor Relationship Specialty Start Date End Date Momo Forbes PCP - General Family Practice 01/02/14 [facility] [address] [place] [phone] Ingrid Santana, RN Registered Nurse Transplant 02/10/12 documented as of this encounter
--- OUTSIDE RECORDS SUMMARY | 2022-06-30 11:01 | XMS_ITS | Encounter Summary ---
:1950 Author Organization [place] Address formerly [facility]0 [facility] [place] [address] Care Team Providers Name Role Phone Ingrid Santana RN Unavailable Unavailable Momo Forbes Primary Care Provider Encounter Details Date Type Department Care Team Description 02/11/2014 Orders Only Nephrology Josseline Nice, Kidney replaced by 2nd Floor, Clinic 2A DIRECTOR DATA ANALYTICS transplant (Primary Tommy Wilburn Dx) [address] [id number] Social History Tobacco Use Types Packs/Day Years [...] Primary documented in this encounter Care Teams Pantograph Machine Set Up Operator Relationship Specialty Start Date End Date Momo Forbes PCP - General Family Practice 01/02/14 [facility] [address] [place] [address] Ingrid Santana RN Registered Nurse Transplant 02/10/12 documented as of this encounter
--- OUTSIDE RECORDS SUMMARY | 2022-06-30 11:01 | XMS_ITS | Encounter Summary ---
:1950 Author Organization [place] Address [facility] [place] [address] Care Team Providers Name Role Phone Ingrid Santana RN Unavailable Unavailable Momo Forbes Primary Care Provider Reason for Visit Reason Comments Eval/Assessment LBA Encounter Details Date Type Department Care Team Description 02/09/2014 Infusion Therapy Specialty Infusion Finger, Migel Mac y replaced by transplant (Primary Dx); Visit and Procedure MD [facility] [address] [place] [address] 19 5 [employer] [address] [phone] [place], [place] (Work) [phone] Social History Tobacco Use [...] documented in this encounter Patient Instructions Patient InstructionsMrac Hernandez RN - 02/09/2014 7:32 AM CDT Dear Diego Guthrie Thank you for choosing [facility] ([facility] [...] Bring Humulog Insulin Pen to your future [facility] appointments. 5) Return to [facility] tomorrow at 07:30 a.m We look forward in seeing you on your next appointment here at [facility]. Please don???t hesitate to callus at [phone] to reschedule any of your appointments or to speak with one of the [facility] registered nurses. It was a pleasure taking care of you today. Sincerely, MARC HERNANDEZ RN [facility] [address] [address] Coumadin Information: Keep Your Diet Steady Keep [...] 7:31 AM CDT Diego Guthrie came to [facility] today for a lab and assess following a Kidney transplant on 02/02/14. Discharge date: 02/08/14 clinical education coordinator: Leandro Kahn Phone number patient can be reached at: [phone] Physical Assessment: See physical assessment located under [...] s/s insulin this morning/nor brought insulin to [facility] appt. I reviewed w/pt the need to monitor BG's QID and to bring Insulin to future [facility] appt's. Last BM: yesterday, loose, pt stopped stool softeners. Pain: Incisional pain rated a 5 , declines pain meds at this time. Laboratory tests: Standard labs drawn. Plan of care for today: 1) Labs/Nausea/Orthostatic BP/MARGARET output reviewed with Dr Hernandes, orders: Increase Zofran to 8mg every 6-8 hours, MARGARET to remain in another day, Administer 1L of NS today, d/c pt from [facility] post 1L NS, return to [facility] tomorrow for LBA, No change [...] and Phone numbers to call with concenrs (clinical education coordinator, [facility] [address] and [facility]) Patient verbalized understanding and all questions answered. Drug level: Prograf level today reviewed with Dr Hernandes who gave orders to no change in dose. INR of 1.59 also reviewed w/Dr Hernandes who gave orders to increase Coumadin to 7.5mg QD. Patient was updated with this information and verbalized understanding. Discharge Plan Pt will follow up with [facility] tomorrow at 0730. Bring Humulog Insulin Pen to [facility] today (pt did not bring to today's appt). 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/Car Sales Representative verbalized understanding, all questions answered: [...] Signature INR 1.59 (H) 0.86 - 1.14 [facility] Specimen Anatomical Collection Method Collection Time Receive d Time (Source) Location / / Volume Laterality Blood specimen 02/09/2014 8:30 AM 014 (specimen) CDT 11:07 AM CDT Migel Merchant MD LAB - BLOOD ORDERABLES Performing Organization Address City/State/ZIP Code Phon e Number [facility] [address] [place], [place] [phone] [place] [address] LABS Tacrolimus level (02/09/2014 7:40 AM CDT) [facility] gist Method Time Signature Tacrolimus Not Provided [facility] Last [facility]ose [facility] Tacrolimus 8.0 5.0 - [facility] Level 15.0 ug/L [facility] [...] Phon e Number [facility] [address] [place], [place] [phone] [place] [address] LABS (ABNORMAL) CBC with platelets differential (02/09/2014 7:40 AM CDT) [facility] Method Time Signature WBC 5.8 4.0 - [facility] 11.0 [place] 10e9/L [place] LAB[facility] RBC Count 2.66 (L) 4.4 - 5.9 [facility] 10e12/L [facility] LABS Hemoglobin 8.2 (L) 13.3 - [facility] 17.7 g/dL [facility] LABS Hematocrit 24.4 (L) 40.0 - [facility] 53.0 % [facility]S MCV 92 78 - 100 [facility] fl [facility] LABS MCH 30.8 26.5 - [facility] 33.0 pg [facility] LABS MCHC 33.6 31.5 - [facility] 36.5 g/dL [facility]S RDW 14.6 10.0 - [facility] 15.0 % [facility] Platelet Count 78 (L) 150 - 450 [facility] 10e9/L [facility] Diff Method Automated [facility] Method [facility] LABS % Neutrophils 84.8 % [facility] % Lymphocytes 5.2 % [facility] % Monocytes 6.9 % [facility] % Eosinophils 2.9 % [facility] % Basophils 0.0 % [facility] % Immature 0.2 % [facility] Granulocytes [facility] LABS Absolute 4.9 1.6 - 8.3 [facility] Neutrophil 10e9/L [facility] LAB[facility] Absolute 0.3 (L) 0.8 - 5.3 [facility] Lymphocytes 10e9/L [facility] LAB[facility] Absolute 0.4 0.0 - 1.3 [facility] Monocytes 10e9/L [facility] LABS Absolute 0.2 0.0 - 0.7 [facility] Eosinophils 10e9/L [facility] Absolute 0.0 0.0 - 0.2 [facility] Basophils 10e9/L [facility] LABS Abs Immature 0.0 0 - 0.4 [facility] Granulocytes 10e9/L [facility] LABS Specimen Anatomical Collection Method Collection Time Receive d Time (Source) Location / / Volume Laterality Blood specimen 02/09/2014 7:40 AM 014 7:49 (specimen) CDT AM CDT Migel Merchant MD LAB - BLOOD ORDERABLES Performing Organization Address City/State/ZIP Code Phon e Number [phone] [place] [address] LABS (ABNORMAL) Phosphorus (02/09/2014 7:40 AM CDT) P athologist Signature Phosphorus 2.0 (L) 2.5 - 4.5 [facility] mg/dL CAMPUS LABS Specimen Anatomical Collection Method Collection Time Receive d Time (Source) Location / / Volume Laterality Blood specimen 02/09/2014 7:40 AM 014 7:49 (specimen) CDT AM CDT Migel Merchant MD LAB - BLOOD ORDERABLES Performing Organization Address City/[facility]/ZIP Code Phon e Number [facility] [address] LABS Magnesium (02/09/2014 7:40 AM CDT) [...] Phon e Number [facility] [address] [place], [place] [phone] [place] [address] LABS (ABNORMAL) Basic metabolic panel (02/09/2014 7:40 AM CDT) Patholo gist Method Time Signature Sodium 145 (H) 133 - 144 [facility] mmol/L [facility] Potassium 4.5 3.4 - 5.3 [facility] mmol/L [facility]S Chloride 110 (H) 94 - 109 [facility] mmol/L [facility] LABS Carbon Dioxide 24 20 - 32 [facility] mmol/L [facility]S Anion Gap 10 6 - 17 [facility] mmol/L [facility]S Glucose 137 (H) 60 - 99 [facility] mg/dL [facility]S Urea Nitrogen 48 (H) 7 - 30 [facility] mg/dL [facility] LABS Creatinine 2.02 (H) 0.66 - [facility] 1.25 mg/dL [facility] LABS GFR Estimate 34 (L) >60 [facility] mL/min/1.7 [place] m2 [facility]AMPUS LABS GFR Estimate If 41 (L) >60 [facility] Black mL/min/1.7 [place] m2 [facility]AMP[facility] LABS Calcium 9.2 8.5 - 10.4 [facility] mg/dL [facility] Specimen Anatomical Collection Method Collection Time Receive d Time (Source) Location / / Volume Laterality Blood specimen 02/09/2014 7:40 AM 014 7:49 (specimen) CDT AM CDT Migel Merchant MD LAB - BLOOD ORDERABLES Performing Organization Address City/State/ZIP Code Phon e Number [facility] [address] [place] [address] [facility] LABS documented in this [...] dose documented in this encounter Care Teams Pediatric Urologist Relationship Specialty Start Date End Date Momo Forbes PCP - General Family Practice 01/02/14 [facility] [address] [place] [address] Ingrid Santana, RN Registered Nurse Transplant 02/10/12 documented as of this encounter
--- OUTSIDE RECORDS SUMMARY | 2022-06-30 11:03 | XMS_ITS | Encounter Summary ---
:1950 Author Organization [place] Address [facility]0 [facility] [place] [address] Care Team Providers Name Role Phone Ingrid Santana RN Unavailable Unavailable Momo Forbes Primary Care Provider Encounter Details Date Type Department Care Team Description 02/02/2014 Abstract The Transplant [facility] 2nd Floor, Clinic [address] [phone] Social History Tobacco Use [...] on filedocumented in this encounter Care Teams [employer] Brusher Relationship Specialty Start Date End Date Momo Forbes PCP - General Family Practice 01/02/14 [facility] [address] [place] [address] Ingrid Santana, BOGDAN Registered Nurse Transplant 02/10/12 documented as of this encounter
--- OUTSIDE RECORDS SUMMARY | 2022-06-30 11:03 | XMS_ITS | Encounter Summary ---
:1950 Author Organization [facility] Address [address] [place] [address] Care Team Providers Name Role Phone Ingrid Santana RN Unavailable Unavailable Momo Forbes Primary Care Provider Reason for Referral Home Health Therapies & Aides Specialty Diagnoses / Procedures Referred By Contact Refer red To Contact Adeline Diaz MD [place] [phone] Referral ID Status Reason Start Date Expiration Date Visits Requ ested Visits Authorized ome Health Therapies & Aides Specialty Diagnoses / Procedures Referred By Contact Gary phelps To Contact Adeline Diaz MD [address] [address] 5 Referral ID Status Reason Start Date Expiration Date Visits Requ ested Visits Authorized ome Health Therapies & Aides Specialty Diagnoses / Procedures Referred By Contact Gary phelps To Contact [facility] [address] [place], [place] [phone] Referral ID Status Reason Start Date Expiration Date Visits Requ ested Visits Authorized Reason for Visit Auth/Cert - Closed Specialty Diagnoses / Procedures Referred By Contact Gary phelps To Contact Med Surg Diagnoses end stage renal disease dialysis End stage renal failure on dialysis Renal Failure Uu U7a Procedures TRANSPLANT KIDNEY RECIPIENT DONOR [address] [place] [address] Phone: Referral ID Status Reason Start Date Expiration Date Visits Requ ested Visits Authorized [id number] Closed 02/04/2014 08/03/2014 1 1 Encounter Details Date Type Department Care Team Description [facility] [address] [place] [id number] S/P kidney transplant (Primary Dx); 02/08/2014 [facility] [address] [place] Rust MD [address] [place] [address] Atrial fibrillation (H) [address] [place] [address] Social History Tobacco Use Types [...] Physician Discharge Summary Patient ID: Diego Guthrie [id number] 63 year old 1950 Admit date: 02/02/2014 [...] Take 1 tablet by mouth daily. B dccuanq-M-abmuw acid (NEPHROCAPS) 1 MG capsule Take 1 [...] in the [facility] ([facility]) which is located on the second floor of the [facility] next to the Transplant Clinic. Your labs [...] of these appointments you will meetwith a tug boat captain and meet your communications coordinator. Your nurse will also be in communication with your surgeon and tug boat captain as needed. The direct number to the [facility] is [phone]. In the [facility] [...] the hospital. This will be located in [facility] transplant surgery clinic on the second floor.Your transplant surgeon is: Dr. Merchant. You have a ureteral stent in place which needs to be removed in 4-6 weeks. If a locomotive crane engineer does not contact you for this, please contact your communications coordinator. If you have modesta in place, they will be removed in 3 weeks after operation. Notify your coordinator if you have pain over your kidney, fever greater than 101.5F, or decreased urine output. Notify your coordinator immediately if you are ever unable to take your immunosuppressive medications for any reason. Rubber Washer [phone] Diet recommendations post-transplant: Heart healthy dietary habits manager long term care (low saturated/trans fat, low sodium). High protein [...] >2. He can be seen by any heavy mobile equipment operator in the outpatient setting for coordination. Continue metoprolol 25 po bid until he is r e-evaluated. We did attempt inpatient REFUGIO guided cardioversion, but the patient developed significant bleeding while on heparin. José Miguel Alvarez M.D. Airdox Fitter Joseph Quintana MD - 02/08/2014 12:35 PM [...] Dr. Quintana. Sina Robison MD Nephrology Fellow [phone] Attestation: This patient has been seen and [...] Ramires RN - 02/07/2014 2:25 PM CDT Cable Technician D: Diego Guthrie 63 year old male POD #5 s/p DDKT for ESRD 2/[address] Diaz note today. Per Dr Diaz, pt will most likely be ready for d/c to home tomorrow and will return to [facility] for 5 days at 0700. Pt [...] him. Pt does not know where the [facility] or transplant clinic is, I told him and he replied I will find it. Pt does not care which [facility] agency will follow him--There are only 2 to choose from, so I chose the [facility] [phone]/ --I called and left a message with Estrella Fletcher and I fax'd his records tothem--pt will need start of care approx Thursday 02/15. Pt is new on warfarin and I called his PCP's office and they have INR nurses Tuesday-Tuesday their fax # is [phone] (when N visits are completed --pt will call main clinic # to schedule INR draws). 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 I verified his address and phone #(is his cell) on the facesheet. Pt has not met his OP managed care director: Leandro Kahn, yet--I sent Leandro an in basket message today-with plan. A: possible d/c to home Tuesday P: see above-will follow and will call [facility] to confirm they can accept him. [...] Dr. Quintana. Sina Robison MD Nephrology Fellow [phone] Attestation: This patient has been seen and [...] assistance Medical Decision Making: Medium Subsequent visit 23588 (moderate level decision making) PATO/Fellow/Resident Provider: Adeline [...] Rodriguez MD - 02/06/2014 4:25 PM CDT [facility] Cardiology Progress Note I have seen [...] Dr. Quintana. Sina Robison MD Nephrology Fellow [phone] Attestation: This patient has been seen and [...] Dr. Quintana. Sina Robison MD Nephrology Fellow [phone] Attestation: This patient has been seen and [...] REPLACEMENT ONLY ??? insulin (regular) Stopped (02/05/14 6237) Shiva Kahn RN - 02/05/2014 4:47 PM CDT MACHINE SCALLOP CUTTER NOTE I met with the patient and his yesterday at [facility] PCU-6B (telemetry unit) to discuss transition from inpatient to outpatient care following kidney translantation. 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 Joseph Rodriguez MD - 02/05/2014 11:16 AM CDT [facility] Cardiology Progress Note I have seen [...] plan for REFUGIO cardioversion tomorrow, NPO at NC (orders placed) -- continue heparin and initiate [...] 02/02/2014. Pt lives alone in [place] though reports that his girlfriend in in the process of moving in with him. Pt girlfriend, Tete, will be present when pt returns home but she works paint brush maker. Pt was on dialysis for 2 1/2 years prior to transplant. Pt works independently but reports that he currently has no income coming in. Pt has primary insurancethrough Medicare and Secondary insurance through [employer]. Pt has no co-pays for his immunosuppressants and a high out of pocket cost for DANILO Salcido to look into grants for pt for [facility]. I: Met with pt to introduce this specifications writer and explain sw role and services available while inpatient in the hospital. Asked if pt had any questions or concerns and completed an assessment of psychosocialneeds post transplant. Provided education about expectations and requirements post discharge like fol low up in the [facility]. Pt is unsure yet if he [...] needs arise prior to discharge. CECY Kearns, ENTRY TABLE OPERATOR Indu Calixto MD - 02/05/2014 1:50 [...] Adds Type of Visit Initial PT Evaluation Cost Report Clerk Cost Report Clerk Present no Language Tongan Living Environment (R) Lives With alone Living Arrangements ([facility]) Home Accessibility no concerns Number of Stairs [...] available. CECY Kearns, [facility] [phone] phone [phone] pager Joseph Quintana MD - 02/04/2014 11:51 [...] Dr. Quintana. Sina Robison MD Nephrology Fellow [phone] Attestation: This patient has been seen and [...] for this basename: PTHI, in the last 10388 hours IRON STUDIES No results found for this basename: IRON, FEB, IRONSAT, THEE, in the last 88396 hours Imaging: All imaging studies reviewed by [...] or equal to 12.0 mlU/mL. Adeline Diaz [phone] Attestation: The patient has been seen and [...] donor kidney transplant, with stent on 02/02/14. CAR WORKER HELPER donor. Graft function:uncertain, Cr slightly up. Slow [...] . Medical Decision Making: Medium Subsequent visit 71114 (moderate level decision making) PATO/Fellow/Resident Provider: Caitlin [...] note and orders. Migel Merchant MD, PhD able bodied tankerman Abdominal Organ Transplantation Carmelita Rosario, RN - 02/03/2014 9:38 AM CDT Patient removed from the UNOS waitlist after donor kidney transplant. UNOS ID is [id number]. Rafaela Cardona - 02/03/2014 9:17 AM CDT [...] followed general diet. Patient reports good appetite/intake DOOR CORE ASSEMBLER, no nutrition issues/concnerns. CURRENT NUTRITION ORDERS - [...] DDKT ASSESSED NUTRITION NEEDS: Estimated Energy Needs: 3885-6185+ kcals (25-30+ Kcal/Kg) Justification: maintenance post-transplant Estimated [...] (6- 8 weeks). Rec follow heart-healthy diet manager long term care. Implementation Nutrition education: Provided instruction on post-transplant diet with discussion regarding protein sources and high protein needs in acute post-tx phase. Reviewed recommendations to follow low fat/lowsodium diet manager long term care and discussed heart healthy diet tips. Discussed [...] adjustment. Rafaela Cardona RD, LD Weekend Coverage [phone] Carla, Jose Galarza MD - 02/03/2014 4:57 [...] Doing well postoperatively. Pain: Controlled by Dilaudid EDI SPECIALIST Diet: NPO tonight Volume Status: Borderline low UOP, continue MIVF, 0.9 % NS 500 cc bolus given for low UOP, CVP not accurate, systolic in 100-110 Recheck hemoglobin and potassium normal. Rest of the plan per primary team. Will continue to follow. Jose Aguirre MD PGY-1.................02/03/2014 Surgery Cross Cover Pager:[phone] documented in this encounter H&P Notes Caitlin [...] 1 tablet by mouth daily. ??? 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 Kidney bx [...] note and orders. Migel Merchant MD, PhD able bodied tankerman Abdominal Organ Transplantation documented in this encounter [...] 1 tablet by mouth daily. ??? 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 José Miguel Alvarez MD Airdox Fitter Pager: [phone] February 04, 2014 Kaitlynn Leon MD - 02/03/2014 9:30 AM CDT Nephrology Initial Consult February 03, 2014 Diego Guthrie Date of : 1950 Date of Admission:02/02/2014 Primary care provider: Momo Forbes Requesting physician: Migel Merchant MD ASSESSMENT AND RECOMMENDATIONS: 1. DDKT - CAR WORKER HELPER -59 yo women; slow graft function-no immediate need for dialysis , but may require tomorrow if UO does not vegetable picker. We will monitor Induction with Thymo/Cellcept [...] h/o type 2 Dm, who received DDKT (CAR WORKER HELPER) on 02/02/2014 donor kidney had severe atherosclerotic [...] ??? Cataract iol, rt/lt both eyes MEDICATIONS: DOOR CORE ASSEMBLER Meds Prior to Admission medications Medication Sig Last Dose Taking? Auth Provider Calcium Carbonate-Vitamin D (CALCIUM + D PO) Take by mouth daily. Reported, Patient lisinopril (PRINIVIL,ZESTRIL) 40 MG tablet Take 40 mg by mouth 2 times daily. Reported, Patient METOPROLOL SUCCINATE PO Take by mouth daily. Reported, Patient aspirin 81 MG tablet Take 1 tablet by mouth daily. Reported, Patient B jurygej-U-lteds acid (NEPHROCAPS) 1 MG capsule Take 1 [...] Intravenous Central line Once ??? HYDROmorphone Intravenous EDI SPECIALIST Infusion Meds ??? 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 Alvin Diego Cardiovascular Disease Fellow [phone] Patient seen and examined by me with [...] Cullen MD, PhD Jarad Cullen MD, PhD [phone] documented in this encounter Nursing Notes Gretta Mary RN - 02/02/2014 11:[address] Owens with Transplant Surgery notified of stat lab results. Magnesium replaced. Dr. Blank with Anesthesia reviewed chest x-ray. CVC not deep enough to give accurate CVP readings, however all lumens aspirate blood well. Patient is ok to transfer to unit 6B per [facility]. documented in this encounter Miscellaneous Notes Plan of Care - Amanda Hernandez RN - 02/08/2014 3:44 PM CDT Problem: IP GENERAL POC-ADULT,OB,BEHAVIORAL FVCPM Goal: Individualization/Patient-Specific Goal (Adult,OB,Behavioral The patient and/or their nutrition representative will achieve their patient-specific goals related [...] Card updated. Report called to Saima in [facility]. Left facility accompanied by s.o at 1600. Plan of Care - Amanda Hernandez RN - 02/08/2014 2:13 PM CDT Problem: IP GENERAL POC-ADULT,OB,BEHAVIORAL FVCPM Goal: Individualization/Patient-Specific Goal (Adult,OB,Behavioral The patient and/or their nutrition representative will achieve their patient-specific goals related [...] Individualization/Patient-Specific Goal (Adult,OB,Behavioral The patient and/or their nutrition representative will achieve their patient-specific goals related [...] Individualization/Patient-Specific Goal (Adult,OB,Behavioral The patient and/or their nutrition representative will achieve their patient-specific goals related [...] weeks. Inez Luevano MS, RD, LD Pager [phone] Pharmacy-Immunosuppression Monitoring - Em Vasquez, [facility] - 02/07/2014 9:06 AM CDT Tacrolimus Monitoring [...] will continue to follow. Em Vasquez, Pharm.D., [facility] Pager [phone] Plan of Care - Annmarie Colby RN - 02/07/2014 5:11 AM CDT Problem: IP GENERAL POC-ADULT,OB,BEHAVIORAL FVCPM Goal: Individualization/Patient-Specific Goal (Adult,OB,Behavioral The patient and/or their nutrition representative will achieve their patient-specific goals related [...] Individualization/Patient-Specific Goal (Adult,OB,Behavioral The patient and/or their nutrition representative will achieve their patient-specific goals related [...] increased fluid intake, urine color is becoming audio narrator( tea color/bloody- >dark sy/tea color). Incisional pain [...] Physical Therapy Goals The patient and/or their nutrition representative will achieve their patient-specific goals related [...] Physical Therapy Goals The patient and/or their nutrition representative will achieve their patient-specific goals related [...] Individualization/Patient-Specific Goal (Adult,OB,Behavioral The patient and/or their nutrition representative will achieve their patient-specific goals related [...] Individualization/Patient-Specific Goal (Adult,OB,Behavioral The patient and/or their nutrition representative will achieve their patient-specific goals related [...] Physical Therapy Goals The patient and/or their nutrition representative will achieve their patient-specific goals related [...] this time. Pharmacy - Cayetano Olivera [facility] - 02/05/2014 12:26 PM CDT Visited 02/05/2014 in hospital room prior to discharge to review medications, review discharge process and review specialty pharmacy program. Med Review: Reviewed patient's medications and medical conditions. Patient would like to use [facility] to manage all medications. Medcard: [...] Specialty Pharmacy review: Discussed the benefits of [facility] and Diego has enrolled. Also gave him supplies (blood pressure cuff, thermometer, and pill box) Other concerns: No other concerns at this time. No further questions for this pharmacist. Inez Cox, Student Pharmacist Hazardous Materials Handler [facility] [address] [place] [address] Cayetano Olivera, Pharmacist [facility] [phone] Pharmacy-Anticoagulation Service - Teresa Wright RP - [...] Individualization/Patient-Specific Goal (Adult,OB,Behavioral The patient and/or their nutrition representative will achieve their patient-specific goals related [...] melonie hard time making full sentences. When specifications writer came on shift at 8pm patient [...] Individualization/Patient-Specific Goal (Adult,OB,Behavioral The patient and/or their nutrition representative will achieve their patient-specific goals related [...] Physical Therapy Goals The patient and/or their nutrition representative will achieve their patient-specific goals related [...] Called Specialty pharmacy. Plan of Care - Jnaet Pratt RN - 02/04/2014 12:00 PM CDT Received pt from around 1200, pt came from transplant course via wheelchair, also accompanied by friend. Pt transferred to chair, VSS, teletypesetter monitor on, oriented to room. Pharmacy-Admission Medication History - Teresa Wright [facility] - 02/04/2014 11:54 AM CDT Admission medication history interview status for the 02/02/2014 admission is complete. See [facility] admission navigator for allergy information, prior to admission medications and immunization status. Medication history interview sources (including written lists, pill bottles, clinic record):Patient Medication history source reliability:Good Primary pharmacy:[facility] phone number: [phone] Changes made to DOOR CORE ASSEMBLER medication list (reason) Added: Vitamin D 1,000 [...] at Unknown time Yes Reported, Patient B jjmbihu-T-csfew acid (NEPHROCAPS) 1 MG capsule Take 1 [...] Individualization/Patient-Specific Goal (Adult,OB,Behavioral The patient and/or their nutrition representative will achieve their patient-specific goals related [...] 45 minutes and remains in A-fib via media monitor. Repeat EKG around 1000 showed continued [...] Physical Therapy Goals The patient and/or their nutrition representative will achieve their patient-specific goals related to the plan of care. The patient-specific goals include: PT 7A: HOLD for AM per RN - pt with a-fib this morning. Plan of Care - Alisson Diane RN - 02/04/2014 6:45 AM CDT Problem: IP GENERAL POC-ADULT,OB,BEHAVIORAL FVCPM Goal: Individualization/Patient-Specific Goal (Adult,OB,Behavioral The patient and/or their nutrition representative will achieve their patient-specific goals related [...] Individualization/Patient-Specific Goal (Adult,OB,Behavioral The patient and/or their nutrition representative will achieve their patient-specific goals related [...] yellow. Pharmacy-Transplant Note - Davina Schuster [facility] - 02/03/2014 4:28 PM CDT Adult Kidney [...] Individualization/Patient-Specific Goal (Adult,OB,Behavioral The patient and/or their nutrition representative will achieve their patient-specific goals related to the plan of care. The patient-specific goals include: 1. Pt will remain hemodynamically stable 2. Pt will have adequate urine output 3. Pt will be free of falls. RD Patient will verbalize understanding of 3 important aspects of post-transplant diet guidelines. PO intake >50% meals TID once diet adv. Report taken from [facility] on 6B; patient transferred to from 6B via wheelchair around 1500. Patientsettled into room, oriented to floor/room and call light. VS taken. Orders released. Continue ordersas written and notify MD with any concerns. Plan of Care - Sofie Christianson RN - 02/03/2014 2:59 PM CDT Problem: IP GENERAL POC-ADULT,OB,BEHAVIORAL FVCPM Goal: Plan of Care Review (Adult,OB,Behavioral) The patient and/or their nutrition representative will communicate an understanding of their [...] algorithm 2, 1 unit now. Pt still gmrbswkej3H NC to maintain sats above 90 % [...] Individualization/Patient-Specific Goal (Adult,OB,Behavioral The patient and/or their nutrition representative will achieve their patient-specific goals related [...] Intermittent sharp R lower abd pain. Dilaudid EDI SPECIALIST encouraged, increased to 0.2/10/1.2. R lower [...] 0200 made 20cc/hr, at 0300 made 30cc/hr. Ratcliff/red tinged urine. MIVF @ 125/hr. VSS. HR 70s, BPs 100s-120s/60s. No new orders at this time. Will continue to monitor. Plan of Care - Tasia Andrade RN - 02/03/2014 12:00 AM CDT Pt arrived to 6B from PACU, s/p DDKT. A&O x3-4. VSS. Ratcliff/red urine output. Small amt drainage on abd [...] patient received anorgan offer for a Donor CAR WORKER HELPER (expanded criteria donor) kidney transplant. After discussing [...] The UNOS number of the donor is [id number]. The crossmatch was done prospectively; and the [...] reconstruction. FACULTY SURGEON: Migel Merchant M.D., Ph.D. FELLOW/GAS STATION SUPERVISOR SURGEON: Caitlin Owens MD fellow ANESTHESIA: None VERIFICATION: Prior to incision, I verified the donor ABO and recipient ABO. After the donor organ arrived to the operating room and prior to anastamosis, I visually verified that the donor identification, blood type, and other vital data were compatible with the recipient. FINDINGS: Donor type: CAR WORKER HELPER (expanded criteria donor) Organ: kidney Graft Injury: [...] Individualization/Patient-Specific Goal (Adult,OB,Behavioral The patient and/or their nutrition representative will achieve their patient-specific goals related [...] Individualization/Patient-Specific Goal (Adult,OB,Behavioral The patient and/or their nutrition representative will achieve their patient-specific goals related [...] LARES - BEAKER POCT Performing Organization Address [facility] Phon e Number FV POINT [...] LARES - BEAKER POCT Performing Organization Address [facility] Phon e Number FV POINT OF CARE TEST, GLUCOSE POINT OF CARE TEST, GLUCOSE Tacrolimus level (02/08/2014 6:42 AM CDT) [facility] gist Method Time Signature Tacrolimus Not Provided [facility] Last Dose [facility] Tacrolimus 10.0 5.0 - [facility] Level 15.0 ug/L [facility] Comment: Tacrolimus Reference Range Kidney [...] LAB - BLOOD ORDERABLES Performing Organization Address City/[facility] Code Phon e Number [facility] [address] [place] [address] [facility] LAB[facility] (ABNORMAL) INR (02/08/2014 6:42 AM CDT) P athologist Signature INR 1.28 (H) 0.86 - 1.14 [facility] Specimen Anatomical Collection Method Collection Time Receive d Time (Source) Location / / Volume Laterality Blood specimen 02/08/2014 6:42 AM 014 6:43 (specimen) CDT AM CDT Omaira Chavez PA-C LAB - BLOOD ORDERABLES Performing Organization Address City/State/ZIP Code Phon e Number [facility] [address] LABS (ABNORMAL) Basic metabolic panel (02/08/2014 6:42 AM CDT) Patholo gist Method Time Signature Sodium 144 133 - 144 [facility] mmol/L [facility] Potassium 3.9 3.4 - 5.3 [facility] mmol/L [facility] Chloride 110 (H) 94 - 109 [facility] mmol/L [facility] Carbon Dioxide 25 20 - 32 [facility] mmol/L [facility] Anion Gap 8 6 - 17 [facility] mmol/L [facility] Glucose 144 (H) 60 - 99 [facility] mg/dL [facility] Urea Nitrogen 66 (H) 7 - 30 [facility] mg/dL [facility] Creatinine 2.38 (H) 0.66 - [facility] 1.25 mg/dL [facility] GFR Estimate 28 (L) >60 [facility] mL/min/1.7 [place] m2 CAMPUS LABS GFR Estimate If 34 (L) >60 [facility] Black mL/min/1.7 [place] [address] CAMPUS LABS Calcium 9.4 8.5 - 10.4 [facility] mg/dL [facility] Specimen Anatomical Collection Method Collection Time Receive d Time (Source) Location / / Volume Laterality Blood specimen 02/08/2014 6:42 AM 014 6:43 (specimen) CDT AM CDT Omaira Chavez PA-C LAB - BLOOD ORDERABLES Performing Organization Address City/State/ZIP Code Phon e Number [facility] [address] [place], [place] [id number] [place] [address] LABS Phosphorus (02/08/2014 6:42 AM CDT) P [...] Phon e Number [facility] [address] LABS Magnesium (02/08/2014 6:42 AM CDT) P athologist Signature Magnesium 2.2 1.6 - 2.3 [facility] mg/dL CAMPUS LABS Specimen Anatomical Collection Method Collection Time Receive d Time (Source) Location / / Volume Laterality Blood specimen 02/08/2014 6:42 AM 014 6:43 (specimen) CDT AM CDT Omaira Chavez PA-C LAB - BLOOD ORDERABLES Performing Organization Address City/State/ZIP Code Phon e Number [facility] [address] [place] [address] [facility] LABS (ABNORMAL) CBC with platelets differential (02/08/2014 6:42 AM CDT) Patholo gist Method Time Signature WBC 4.8 4.0 - [facility] 11.0 [place] 10e9/L [place] LABS RBC Count 2.56 (L) 4.4 - 5.9 [facility] 10e12/L [facility] Hemoglobin 7.8 (L) 13.3 - [facility] 17.7 g/dL [facility] Hematocrit 23.5 (L) 40.0 - [facility] 53.0 % [facility] MCV 92 78 - 100 [facility] fl [facility] MCH 30.5 26.5 - [facility] 33.0 pg [facility] MCHC 33.2 31.5 - [facility] 36.5 g/dL [facility] RDW 14.5 10.0 - [facility] 15.0 % [facility] Platelet Count 70 (L) 150 - 450 [facility] 10e9/L [facility] Diff Method Automated [facility] Method [facility] % Neutrophils 86.3 % [facility] % Lymphocytes 3.1 % [facility] % Monocytes 9.4 % [facility] % Eosinophils 1.0 % [facility] % Basophils 0.0 % [facility] % Immature 0.2 % [facility] Granulocytes [facility] Absolute 4.1 1.6 - 8.3 [facility] Neutrophil 10e9/L [facility] Absolute 0.2 (L) 0.8 - 5.3 [facility] Lymphocytes 10e9/L [facility] Absolute 0.5 0.0 - 1.3 [facility] Monocytes 10e9/L [facility] Absolute 0.1 0.0 - 0.7 [facility] Eosinophils 10e9/L [facility] Absolute 0.0 0.0 - 0.2 [facility] Basophils 10e9/L [place] [facility] Abs Immature 0.0 0 - 0.4 [facility] Granulocytes 10e9/L [facility] Specimen Anatomical Collection Method Collection Time Receive d Time (Source) Location / / Volume Laterality Blood specimen 02/08/2014 6:42 AM 014 6:43 (specimen) CDT AM CDT Omaira Chavez PA-C LAB - BLOOD ORDERABLES Performing Organization Address City/State/ZIP Code Phon e Number [address] [facility] LABS (ABNORMAL) Glucose by meter (02/07/2014 [...] LARES - ROBERT POCT Performing Organization Address City/[facility]/ZIP Code Phon e Number [...] INR 1.25 (H) 0.86 - 1.14 [facility] Specimen Anatomical Collection Method Collection Time Receive d Time (Source) Location / / Volume Laterality Blood specimen 02/07/2014 4:23 AM 014 4:24 (specimen) CDT AM CDT Omaira Chavez PA-C LAB - BLOOD ORDERABLES Performing Organization Address City/State/ZIP Code Phon e Number [address] LABS (ABNORMAL) Basic metabolic panel (02/07/2014 4:23 AM CDT) Patholo gist Method Time Signature Sodium 143 133 - 144 [facility] mmol/L [facility] Potassium 4.1 3.4 - 5.3 [facility] mmol/L [facility] Chloride 109 94 - 109 [facility] mmol/L [facility] Carbon Dioxide 24 20 - 32 [facility] mmol/L [facility] Anion Gap 10 6 - 17 [facility] mmol/L [facility] Glucose 185 (H) 60 - 99 [facility] mg/dL [facility] Urea Nitrogen 77 (H) 7 - 30 [facility] mg/dL [facility] Creatinine 3.02 (H) 0.66 - [facility] 1.25 mg/dL [facility] GFR Estimate 21 (L) >60 [facility] mL/min/1.7 [place] m2 CAMPUS LABS GFR Estimate If 26 (L) >60 [facility] Black mL/min/1.7 [place] [address] CAMPUS LABS Calcium 9.3 8.5 - 10.4 [facility] mg/dL [facility] Specimen Anatomical Collection Method Collection Time Receive d Time (Source) Location / / Volume Laterality Blood specimen 02/07/2014 4:23 AM 014 4:24 (specimen) CDT AM CDT Omaira Chavez PA-C LAB - BLOOD ORDERABLES Performing Organization Address City/[facility]/ZIP Code Phon e Number [address] LABS Phosphorus (02/07/2014 4:23 AM CDT) [...] Phon e Number [facility] [address] [facility] Magnesium (02/07/2014 4:23 AM CDT) P athologist Signature Magnesium 2.1 1.6 - 2.3 [facility] mg/dL [place] LABS Specimen Anatomical Collection Method Collection Time Receive d Time (Source) Location / / Volume Laterality Blood specimen 02/07/2014 4:23 AM 014 4:24 (specimen) CDT AM CDT Omaira Chavez PA-C LAB - BLOOD ORDERABLES Performing Organization Address City/State/ZIP Code Phon e Number [facility] [address] [place] [address] [facility] LABS (ABNORMAL) CBC with platelets differential (02/07/2014 4:23 AM CDT) Patholo gist Method Time Signature WBC 2.7 (L) 4.0 - [facility] 11.0 [facility] 10e9/L [place] [facility] RBC Count 2.80 (L) 4.4 - 5.9 [facility] 10e12/L [facility] Hemoglobin 8.5 (L) 13.3 - [facility] 17.7 g/dL [facility] Hematocrit 25.8 (L) 40.0 - [facility] 53.0 % [facility] MCV 92 78 - 100 [facility] fl [facility] MCH 30.4 26.5 - [facility] 33.0 pg [facility] MCHC 32.9 31.5 - [facility] 36.5 g/dL [facility] RDW 14.5 10.0 - [facility] 15.0 % [facility] Platelet Count 77 (L) 150 - 450 [facility] 10e9/L [facility] Diff Method Automated [facility] Method [facility] % Neutrophils 87.5 % [facility] % Lymphocytes 3.8 % [facility] % Monocytes 8.7 % [facility] % Eosinophils 0.0 % [facility] % Basophils 0.0 % [facility] % Immature 0.0 % [facility] Granulocytes [facility] Absolute 2.3 1.6 - 8.3 [facility] Neutrophil 10e9/L [facility] Absolute 0.1 (L) 0.8 - 5.3 [facility] Lymphocytes 10e9/L [facility] Absolute 0.2 0.0 - 1.3 [facility] Monocytes 10e9/L [facility] Absolute 0.0 0.0 - 0.7 [facility] Eosinophils 10e9/L [facility] LABS Absolute 0.0 0.0 - 0.2 [facility] Basophils 10e9/L [place] [facility] LAB[facility] Abs Immature 0.0 0 - 0.4 [facility] Granulocytes 10e9/L [facility] Specimen Anatomical Collection Method Collection Time Receive d Time (Source) Location / / Volume Laterality Blood specimen 02/07/2014 4:23 AM 014 4:24 (specimen) CDT AM CDT Omaira Chavez PA-C LAB - BLOOD ORDERABLES Performing Organization Address City/[facility]/ZIP Code Phon e Number [address] LABS (ABNORMAL) Hemoglobin A1c (02/07/2014 4:23 AM CDT) Analysis Performed At Patho logist Time Signature Hemoglobin A1C 6.1 (H) 4.3 - 6.0 [facility] Specimen Anatomical Collection Method Collection Time Receive d Time (Source) Location / / Volume Laterality Blood specimen 02/07/2014 4:23 AM 014 4:24 (specimen) CDT AM CDT Omaira Chavez PA-C LAB - BLOOD ORDERABLES Performing Organization Address City/State/ZIP Code Phon e Number [facility] [address] LABS (ABNORMAL) Glucose by meter (02/06/2014 [...] LAB - BEAJ POCT Performing Organization Address [facility] Phon e Number [facility] POINT OF CARE TEST, GLUCOSE POINT OF CARE TEST, GLUCOSE (ABNORMAL) Hemoglobin (02/06/2014 4:59 PM CDT) P athologist Signature Hemoglobin 8.8 (L) 13.3 - 17.7 [facility] g/dL [place] LABS Specimen Anatomical Collection Method Collection Time Receive d Time (Source) Location / / Volume Laterality Blood specimen 02/06/2014 4:59 PM 014 5:12 (specimen) CDT PM CDT Omaira Chavez PA-C LAB - BLOOD ORDERABLES Performing Organization Address City/[facility]/ZIP Code Phon e Number [address] [facility] LABS (ABNORMAL) Glucose by meter (02/06/2014 12:01 PM CDT) P athologist Signature Glucose 181 (H) 60 - 99 POINT OF CARE mg/dL TEST, GLUCOSE Specimen Anatomical Collection Method Collection Time Receive d Time (Source) Location / / Volume Laterality 02/06/2014 12:01 02/06/2014 PM CDT 12:05 PM CDT Migel Merchant MD LAB - BEAKER POCT Performing Organization Address City/[facility]/ZIP Code Phon e Number [facility] POINT OF CARE TEST, GLUCOSE POINT OF CARE TEST, GLUCOSE (ABNORMAL) Partial thromboplastin time (02/06/2014 5:57 AM CDT) athologist Signature PTT 154 (HH) 22 - 37 sec [facility] Comment: Critical Value called to and read back Whitney Poon RN AT 0642. PW Specimen Anatomical Collection Method Collection Time Receive d Time (Source) Location / / Volume Laterality 02/06/2014 5:57 AM 4 6:03 CDT AM CDT Adeline Diaz MD LAB - BLOOD ORDERABLES Performing Organization Address City/[facility]/ZIP Code Phon e Number [facility] [address] LABS Heparin Xa (10a) Level (02/06/2014 5:57 AM CDT) athologist Signature Heparin 10A 0.92 IU/mL [facility] LABS Comment: Therapeutic Range: ?? [...] Phon e Number [facility] [address] LABS (ABNORMAL) INR (02/06/2014 5:57 AM CDT) athologist Signature INR 1.32 (H) 0.86 - 1.14 [facility] Specimen Anatomical Collection Method Collection Time Receive d Time (Source) Location / / Volume Laterality Blood specimen 02/06/2014 5:57 AM 014 6:03 (specimen) CDT AM CDT Omaira Chavez PA-C LAB - BLOOD ORDERABLES Performing Organization Address City/[facility]/ZIP Code Phon e Number [facility] [address] LABS (ABNORMAL) Basic metabolic panel (02/06/2014 5:57 AM CDT) [facility] gist Method Time Signature Sodium 142 133 - 144 [facility] mmol/L [facility] Potassium 4.7 3.4 - 5.3 [facility] mmol/L [facility] Chloride 106 94 - 109 [facility] mmol/L [facility] Carbon Dioxide 28 20 - 32 [facility] mmol/L [facility] Anion Gap 8 6 - 17 [facility] mmol/L [facility] Glucose 196 (H) 60 - 99 [facility] mg/dL [facility] Urea Nitrogen 71 (H) 7 - 30 [facility] mg/dL [facility] Creatinine 3.96 (H) 0.66 - [facility] 1.25 mg/dL [facility] GFR Estimate 15 (L) >60 [facility] mL/min/1.7 [place] m2 CAMPUS LABS GFR Estimate If 19 (L) >60 [facility] Black mL/min/1.[address] LABS Calcium 9.4 8.5 - 10.4 [facility] mg/dL [facility] Specimen Anatomical Collection Method Collection Time Receive d Time (Source) Location / / Volume Laterality Blood specimen 02/06/2014 5:57 AM 014 6:03 (specimen) CDT AM CDT Omaira Chavez PA-C LAB - BLOOD ORDERABLES Performing Organization Address City/State/ZIP Code Phon e Number [facility] [address] LABS Phosphorus (02/06/2014 5:57 AM CDT) [...] Phon e Number [facility] [address] [place], [place] [id number] [place] [address] LABS Magnesium (02/06/2014 5:57 AM CDT) P athologist Signature Magnesium 1.9 1.6 - 2.3 [facility] mg/dL [place] LABS Specimen Anatomical Collection Method Collection Time Receive d Time (Source) Location / / Volume Laterality Blood specimen 02/06/2014 5:57 AM 014 6:03 (specimen) CDT AM CDT Omaira Chavez PA-C LAB - BLOOD ORDERABLES Performing Organization Address City/[facility]/ZIP Code Phon e Number [facility] [address] [place] [address] [facility] LABS (ABNORMAL) CBC with platelets differential (02/06/2014 5:57 AM CDT) Patholo gist Method Time Signature WBC 5.1 4.0 - [facility] 11.0 [facility] 10e9/L [place] LABS RBC Count 3.13 (L) 4.4 - 5.9 [facility] 10e12/L [facility]S Hemoglobin 9.6 (L) 13.3 - [facility] 17.7 g/dL [facility] Hematocrit 29.0 (L) 40.0 - [facility] 53.0 % [facility] MCV 93 78 - 100 [facility] fl [facility] MCH 30.7 26.5 - [facility] 33.0 pg [facility] MCHC 33.1 31.5 - [facility] 36.5 g/dL [facility] RDW 14.5 10.0 - [facility] 15.0 % [facility] Platelet Count 85 (L) 150 - 450 [facility] 10e9/L [facility] Diff Method Automated [facility] Method [facility] LAB[facility] % Neutrophils 86.0 % [facility] % Lymphocytes 5.1 % [facility] % Monocytes 8.7 % [facility] % Eosinophils 0.0 % [facility] % Basophils 0.0 % [facility] % Immature 0.2 % [facility] Granulocytes [facility] Absolute 4.4 1.6 - 8.3 [facility] Neutrophil 10e9/L [facility] Absolute 0.3 (L) 0.8 - 5.3 [facility] Lymphocytes 10e9/L [facility] Absolute 0.4 0.0 - 1.3 [facility] Monocytes 10e9/L [facility] Absolute 0.0 0.0 - 0.7 [facility] Eosinophils 10e9/L [facility] Absolute 0.0 0.0 - 0.2 [facility] Basophils 10e9/L [facility] Abs Immature 0.0 0 - 0.4 [facility] Granulocytes 10e9/L [facility] Specimen Anatomical Collection Method Collection Time Receive d Time (Source) Location / / Volume Laterality Blood specimen 02/06/2014 5:57 AM 014 6:03 (specimen) CDT AM CDT Omaira Chavez PA-C LAB - BLOOD ORDERABLES Performing Organization Address City/State/ZIP Code Phon e Number [facility] [address] [place], [place] [id number] [place] [address] LABS (ABNORMAL) Lipid panel reflex to direct LDL (02/06/2014 5:57 AM CDT) P athologist Signature Cholesterol 126 <200 mg/dL [facility] Comment: LDL Cholesterol is the primary guide to therapy. The NCEP recommends further evaluation of: patients with cholesterol greater than 200 mg/dL if additional risk facto rs are present, cholesterol greater than 240 mg/dL, triglycerides greater than 1 50 mg/dL, or HDL less than 40 mg/dL. Triglycerides 100 0 - 150 mg/dL [facility] [place] LABS HDL Cholesterol 35 (L) >40 mg/dL [facility] [place] LABS LDL Cholesterol Calculated 71 0 - 129 mg/dL [facility] Comment: LDL Cholesterol is the primary guide to therapy: LDL-cholesterol goal in high risk patients is <100 mg/dL and in very high risk patients is <70 mg/dL. VLDL-Cholesterol 20 0 - 30 mg/dL [facility] LAB[facility] Cholesterol/HDL Ratio 3.6 0.0 - 5.0 [facility] [place] LABS Specimen Anatomical Collection Method Collection Time Receive d Time (Source) Location / / Volume Laterality Blood specimen 02/06/2014 5:57 AM 06/18/2 014 6:03 (specimen) CDT AM CDT Omaira Chavez PA-C LAB - BLOOD ORDERABLES Performing Organization Address City/State/ZIP Code Phon e Number [facility] [address] [place] [address] [facility] Tacrolimus level (02/06/2014 5:57 AM CDT) [facility] gist Method Time Signature Tacrolimus S Negative [facility] Last Dose [facility] Tacrolimus 12.7 5.0 - [facility] Level 15.0 ug/L [facility] Comment: Tacrolimus Reference Range Kidney [...] LAB - BLOOD ORDERABLES Performing Organization Address City/[facility]/ZIP Code Phon e Number [facility] [address] LABS (ABNORMAL) Glucose by meter (02/06/2014 3:21 AM CDT) P athologist Signature Glucose 216 (H) 60 - 99 POINT OF CARE mg/dL TEST, GLUCOSE Specimen Anatomical Collection Method Collection Time Receive d Time (Source) Location / / Volume Laterality 02/06/2014 3:21 AM 4 3:25 CDT AM CDT Migel Merchant MD LAB - BEAKER POCT Performing Organization Address City/[facility]/ZIP Code Phon e Number [facility] POINT OF CARE TEST, GLUCOSE POINT OF CARE TEST, GLUCOSE (ABNORMAL) Hemoglobin (02/06/2014 1:02 AM CDT) athologist Signature Hemoglobin 10.2 (L) 13.3 - [facility] 17.7 g/dL [place] LABS Specimen Anatomical Collection Method Collection Time Receive d Time (Source) Location / / Volume Laterality Blood specimen 02/06/2014 1:02 AM 014 1:11 (specimen) CDT AM CDT Deysi Alicea MD LAB - BLOOD ORDERABLES Performing Organization Address City/[facility]/ZIP Code Phon e Number [address] LABS (ABNORMAL) Glucose by meter (02/05/2014 10:23 PM CDT) P athologist Signature Glucose 254 (H) 60 - 99 POINT OF CARE mg/dL TEST, GLUCOSE Specimen Anatomical Collection Method Collection Time Receive d Time (Source) Location / / Volume Laterality 02/05/2014 10:23 02/05/2014 PM CDT 10:25 PM CDT Migel Merchant MD LAB - BEAKER POCT Performing Organization Address City/[facility]/ZIP Code Phon e Number [facility] POINT OF CARE TEST, GLUCOSE POINT OF CARE TEST, GLUCOSE Heparin 10a Level (02/05/2014 7:32 PM CDT) P athologist Signature Heparin 10A 0.64 IU/mL [facility] LABS Comment: Therapeutic Range: ?? [...] Address City/State/ZIP Code Phon e Number [address] LABS (ABNORMAL) Glucose by meter (02/05/2014 [...] LARES - BEAJ POCT Performing Organization Address City/[facility]/ZIP Code Phon e Number [...] LARES - BEAKER POCT Performing Organization Address City/[facility]/ZIP Code Phon e Number [facility] POINT OF CARE TEST, GLUCOSE POINT OF CARE TEST, GLUCOSE (ABNORMAL) INR (02/05/2014 12:04 PM CDT) P athologist Signature INR 1.24 (H) 0.86 - 1.14 [facility] LABS Specimen Anatomical Collection Method Collection Time Receive d Time (Source) Location / / Volume Laterality Blood specimen 02/05/2014 12:04 4 (specimen) PM CDT 12:10 PM CDT Teresa Wright [facility] LAB - BLOOD ORDERABLES Performing Organization Address City/[facility]/ZIP Code Phon e Number [address] [facility] LABS (ABNORMAL) CBC with platelets (02/05/2014 12:04 PM CDT) Patholo gist Method Time Signature WBC 7.4 4.0 - 11.0 [facility] 10e9/L [facility]S RBC Count 3.31 (L) 4.4 - 5.9 [facility] 10e12/L [facility]S Hemoglobin 10.3 (L) 13.3 - [facility] 17.7 g/dL [facility] LABS Hematocrit 31.0 (L) 40.0 - [facility] 53.0 % [facility]S MCV 94 78 - 100 [facility] fl [facility] LABS MCH 31.1 26.5 - [facility] 33.0 pg [facility] MCHC 33.2 31.5 - [facility] 36.5 g/dL [facility] RDW 14.7 10.0 - [facility] 15.0 % [facility] Platelet Count 91 (L) 150 - 450 [facility] 10e9/L [facility] Specimen Anatomical Collection Method Collection Time Receive d Time (Source) Location / / Volume Laterality Blood specimen 02/05/2014 12:04 4 (specimen) PM CDT 12:10 PM CDT Omaira Chavez PA-C LAB - BLOOD ORDERABLES Performing Organization Address City/State/ZIP Code Phon e Number [id number] [place] [address] LABS (ABNORMAL) Glucose by meter (02/05/2014 11:25 [...] LARES - ROBERT POCT Performing Organization Address City/[facility]/ZIP Code Phon e Number [...] LAB - BEAJ POCT Performing Organization Address City/[facility]/ZIP Code Phon e Number [facility] POINT OF CARE TEST, GLUCOSE POINT OF CARE TEST, GLUCOSE (ABNORMAL) Basic metabolic panel (02/05/2014 7:02 AM CDT) [facility] gist Method Time Signature Sodium 143 133 - 144 [facility] mmol/L [facility] LABS Potassium 4.3 3.4 - 5.3 [facility] mmol/L [facility] Chloride 107 94 - 109 [facility] mmol/L [facility] Carbon Dioxide 25 20 - 32 [facility] mmol/L [facility]S Anion Gap 10 6 - 17 [facility] mmol/L [facility] Glucose 123 (H) 60 - 99 [facility] mg/dL [facility] Urea Nitrogen 66 (H) 7 - 30 [facility] mg/dL [facility]S Creatinine 4.77 (H) 0.66 - [facility] 1.25 mg/dL [facility] LABS GFR Estimate 12 (L) >60 [facility] mL/min/1.7 [facility] m2 [facility]AMP[facility] LABS GFR Estimate If 15 (L) >60 [facility] Black mL/min/1.7 [place] [address] CAMPUS LABS Calcium 9.4 8.5 - 10.4 [facility] mg/dL [facility] LABS Specimen Anatomical Collection Method Collection Time Receive d Time (Source) Location / / Volume Laterality Blood specimen 02/05/2014 7:02 AM 014 7:05 (specimen) CDT AM CDT Omaira Chavez PA-C LAB - BLOOD ORDERABLES Performing Organization Address City/[facility]/ZIP Code Phon e Number [facility] [address] LABS (ABNORMAL) Phosphorus (02/05/2014 7:02 AM CDT) P athologist Signature Phosphorus 5.7 (H) 2.5 - 4.5 [facility] mg/dL [place] LABS Specimen Anatomical Collection Method Collection Time Receive d Time (Source) Location / / Volume Laterality Blood specimen 02/05/2014 7:02 AM 014 7:05 (specimen) CDT AM CDT Omaira Chavez PA-C LAB - BLOOD ORDERABLES Performing Organization Address City/[facility]/ZIP Code Phon e Number [facility] [address] LABS Magnesium (02/05/2014 7:02 AM CDT) P athologist Signature Magnesium 2.0 1.6 - 2.3 [facility] mg/dL [place] LABS Specimen Anatomical Collection Method Collection Time Receive d Time (Source) Location / / Volume Laterality Blood specimen 02/05/2014 7:02 AM 014 7:05 (specimen) CDT AM CDT Omaira Chavez PA-C LAB - BLOOD ORDERABLES Performing Organization Address City/[facility]/ZIP Code Phon e Number [facility] [address] [place], [place] [id number] [place] [address] LABS (ABNORMAL) CBC with platelets differential (02/05/2014 7:02 AM CDT) Patholo gist Method Time Signature WBC 8.9 4.0 - [facility] 11.0 [place] 10e9/L [place] LABS RBC Count 3.20 (L) 4.4 - 5.9 [facility] 10e12/L [facility]S Hemoglobin 9.7 (L) 13.3 - [facility] 17.7 g/dL [facility] LABS Hematocrit 30.0 (L) 40.0 - [facility] 53.0 % [facility] MCV 94 78 - 100 [facility] fl [facility] MCH 30.3 26.5 - [facility] 33.0 pg [facility] MCHC 32.3 31.5 - [facility] 36.5 g/dL [facility] RDW 14.6 10.0 - [facility] 15.0 % [facility] Platelet Count 96 (L) 150 - 450 [facility] 10e9/L [facility] Diff Method Automated [facility] Method [facility] % Neutrophils 90.2 % [facility] % Lymphocytes 4.4 % [facility] % Monocytes 5.2 % [facility] % Eosinophils 0.0 % [facility] % Basophils 0.0 % [facility] % Immature 0.2 % [facility] Granulocytes [facility] Absolute 8.1 1.6 - 8.3 [facility] Neutrophil 10e9/L [facility] Absolute 0.4 (L) 0.8 - 5.3 [facility] Lymphocytes 10e9/L [facility] Absolute 0.5 0.0 - 1.3 [facility] Monocytes 10e9/L [facility] Absolute 0.0 0.0 - 0.7 [facility] Eosinophils 10e9/L [facility] Absolute 0.0 0.0 - 0.2 [facility] Basophils 10e9/L [facility] Abs Immature 0.0 0 - 0.4 [facility] Granulocytes 10e9/L [facility] Specimen Anatomical Collection Method Collection Time Receive d Time (Source) Location / / Volume Laterality Blood specimen 02/05/2014 7:02 AM 014 7:05 (specimen) CDT AM CDT Omaira Chavez PA-C LAB - BLOOD ORDERABLES Performing Organization Address City/State/ZIP Code Phon e Number [phone] [place] [address] LABS (ABNORMAL) Parathormone intact (02/05/2014 7:02 AM CDT) Patholo gist Method Time Signature Parathyroid 362 (H) 12 - 72 [facility] Hormone Intact pg/mL [facility] Specimen Anatomical Collection Method Collection Time Receive d Time (Source) Location / / Volume Laterality Blood specimen 02/05/2014 7:02 AM 014 7:05 (specimen) CDT AM CDT Sina Robison MD LAB - BLOOD ORDERABLES Performing Organization Address [facility] Code Phon e Number [address] LABS (ABNORMAL) Ferritin (02/05/2014 7:02 AM CDT) P athologist Signature Ferritin 932 (H) 20 - 300 [facility] ng/mL [place] [facility] Specimen Anatomical Collection Method Collection Time Receive d Time (Source) Location / / Volume Laterality Blood specimen 02/05/2014 7:02 AM 014 7:05 (specimen) CDT AM CDT Sina Robison MD LAB - BLOOD ORDERABLES Performing Organization Address [facility] Code Phon e Number [address] LABS (ABNORMAL) Iron and iron binding capacity (02/05/2014 7:02 AM CDT) Analysis Performed At Patho logist Time Signature Iron 119 35 - 180 [facility] ug/dL [facility] Iron Binding 207 (L) 240 - 430 [facility] Cap ug/dL [facility] Iron Saturation 58 (H) 15 - 46 % [facility] Index [facility] Specimen Anatomical Collection Method Collection Time Receive d Time (Source) Location / / Volume Laterality Blood specimen 02/05/2014 7:02 AM 014 7:05 (specimen) CDT AM CDT Sina Robison MD LAB - BLOOD ORDERABLES Performing Organization Address City/[facility]/ZIP Code Phon e Number [facility] [address] LABS (ABNORMAL) Glucose by meter (02/05/2014 [...] LAB - BEAKER POCT Performing Organization Address City/[facility]/ZIP Code Phon e Number [...] LAB - BEAJ POCT Performing Organization Address City/[facility]/ZIP Code Phon e Number [...] LAB - ROBERT POCT Performing Organization Address City/[facility]/ZIP Code Phon e Number [...] LARES - ROBERT POCT Performing Organization Address City/[facility]/ZIP Code Phon e Number [...] LARES - ROBERT POCT Performing Organization Address City/[facility]/ZIP Code Phon e Number [...] LARES - ROBERT POCT Performing Organization Address City/[facility]/ZIP Code Phon e Number [...] Carr MD ECG ORDERABLES Performing Organization Address City/[facility]/ZIP Code Phon e Number RADIOLOGY RESULTS (ABNORMAL) Glucose by meter (02/04/2014 10:56 PM CDT) P athologist Signature Glucose 161 (H) 60 - 99 POINT OF CARE mg/dL TEST, GLUCOSE Specimen Anatomical Collection Method Collection Time Receive d Time (Source) Location / / Volume Laterality 02/04/2014 10:56 02/04/2014 PM CDT 11:00 PM CDT Migel LARES - ROBERT POCT Performing Organization Address City/[facility]/ZIP Code Phon e Number [...] LARES - ROBERT POCT Performing Organization Address City/[facility]/ZIP Code Phon e Number [...] LAB - ROBERT POCT Performing Organization Address City/[facility]/ZIP Code Phon e Number [...] athologist Signature Troponin I 0.016 0.000 - [facility] 0.034 ug/L [place] [facility]S Specimen Anatomical Collection Method Collection Time Receive d Time (Source) Location / / Volume Laterality Blood specimen 02/04/2014 7:10 PM 014 7:23 (specimen) CDT PM CDT Adeline Diaz MD LAB - BLOOD ORDERABLES Performing Organization Address City/[facility]/ZIP Code Phon e Number [phone] [place] [address] LABS (ABNORMAL) Glucose by meter (02/04/2014 7:01 PM CDT) P athologist Signature Glucose 157 (H) 60 - 99 POINT OF CARE mg/dL TEST, GLUCOSE Specimen Anatomical Collection Method Collection Time Receive d Time (Source) Location / / Volume Laterality 02/04/2014 7:01 PM 4 7:05 CDT PM CDT Migel Merchant MD LAB - BEAKER POCT Performing Organization Address City/[facility]/ZIP Code Phon e Number [...] LAB - BEAKER POCT Performing Organization Address City/[facility]/ZIP Code Phon e Number [...] 4:10 CDT PM CDT Migel LARES - [employer] [...] LAB - BEAKER POCT Performing Organization Address City/[facility]/ZIP Code Phon e Number [...] Department Troponin I ES 0.025 0.000 - [facility] 0.034 ug/L CAMPUS LABS Specimen Anatomical Collection Method Collection Time Receive d Time (Source) Location / / Volume Laterality Blood specimen 02/04/2014 12:42 4 (specimen) PM CDT 12:45 PM CDT Adeline Diaz MD LAB - BLOOD ORDERABLES Performing Organization Address City/State/ZIP Code Phon e Number [facility] 500 [place] [address] [facility] LABS (ABNORMAL) Glucose by meter (02/04/2014 12:27 PM CDT) P athologist Signature Glucose 140 (H) 60 - 99 POINT OF CARE mg/dL TEST, GLUCOSE Specimen Anatomical Collection Method Collection Time Receive d Time (Source) Location / / Volume Laterality 02/04/2014 12:27 02/04/2014 PM CDT 12:30 PM CDT Migel LARES - ROBERT POCT Performing Organization Address [facility]/ZIP Code Phon e Number [...] LARES - BEAJ POCT Performing Organization Address City/[facility]/ZIP Code Phon e Number [...] LAB - ROBERT POCT Performing Organization Address [facility]/ZIP Code Phon e Number [facility] POINT OF CARE TEST, GLUCOSE POINT OF CARE TEST, GLUCOSE EKG 12-lead, complete (02/04/2014 9:21 AM CDT) [facility] gist Method Time Signature Interpretation ECG Click View RADIOLOGY Image link RESULTS to view waveform and result Specimen (Source) Anatomical Collection Method Collection Time Re ceived Time Location / / Volume Laterality 02/04/2014 9:21 AM CDT Omaira Chavez PA-C ECG ORDERABLES Performing Organization Address [facility]/ZIP [facility] Phon e Number RADIOLOGY RESULTS (ABNORMAL) Glucose by meter (02/04/2014 9:02 AM CDT) P athologist Signature Glucose 203 (H) 60 - 99 POINT OF CARE mg/dL TEST, GLUCOSE Specimen Anatomical Collection Method Collection Time Receive d Time (Source) Location / / Volume Laterality 02/04/2014 9:02 AM 4 9:05 CDT AM CDT Migel Merchant MD LAB - ROBERT POCT Performing Organization Address [facility]/ZIP Code Phon e Number [...] LAB - ROBERT POCT Performing Organization Address [facility]/ZIP [facility] Phon e Number FV POINT OF CARE [...] LAB - ROBERT POCT Performing Organization Address [facility] Phon e Number FV POINT [...] Owens MD ECG ORDERABLES Performing Organization Address [facility] Phon e Number RADIOLOGY RESULTS [...] Signature Troponin I ES <0.012 0.000 - [facility] 0.034 ug/L CAMPUS LABS Specimen Anatomical Collection Method Collection Time Receive d Time (Source) Location / / Volume Laterality 02/04/2014 5:49 AM 201 4 5:51 CDT AM CDT Caitlin Owens MD LAB - BLOOD ORDERABLES Performing Organization Address City/State/ZIP Code Phon e Number [facility] [address] LABS (ABNORMAL) Basic metabolic panel (02/04/2014 5:49 AM CDT) Patholo gist Method Time Signature Sodium 142 133 - 144 [facility] mmol/L [facility] Potassium 4.9 3.4 - 5.3 [facility] mmol/L [facility] Chloride 107 94 - 109 [facility] mmol/L [facility] [place] [facility] Carbon Dioxide 23 20 - 32 [facility] mmol/L [facility] Anion Gap 12 6 - 17 [facility] mmol/L [facility] Glucose 151 (H) 60 - 99 [facility] mg/dL [facility] [place] [facility] Urea Nitrogen 57 (H) 7 - 30 [facility] mg/dL [facility] [place] [facility] Creatinine 5.94 (H) 0.66 - [facility] 1.25 mg/dL [facility] GFR Estimate 10 (L) >60 [facility] mL/min/1.7 [facility] m2 [facility]AMPUS LABS GFR Estimate If 12 (L) >60 [facility] Black mL/min/1.7 [place] [address] CAMPUS LABS Calcium 9.4 8.5 - 10.4 [facility] mg/dL [facility] Specimen Anatomical Collection Method Collection Time Receive d Time (Source) Location / / Volume Laterality Blood specimen 02/04/2014 5:49 AM 014 5:51 (specimen) CDT AM CDT Omaira Chavez PA-C LAB - BLOOD ORDERABLES Performing Organization Address City/State/ZIP Code Phon e Number [facility] [address] LABS (ABNORMAL) Phosphorus (02/04/2014 5:49 AM CDT) athologist Signature Phosphorus 6.3 (H) 2.5 - 4.5 [facility] mg/dL [place] [facility] Specimen Anatomical Collection Method Collection Time Receive d Time (Source) Location / / Volume Laterality Blood specimen 02/04/2014 5:49 AM 014 5:51 (specimen) CDT AM CDT Omaira Chavez PA-C LAB - BLOOD ORDERABLES Performing Organization Address City/[facility] Phon e Number [facility] [address] LABS Magnesium (02/04/2014 5:49 AM CDT) athologist Signature Magnesium 2.1 1.6 - 2.3 [facility] mg/dL [place] [facility] Specimen Anatomical Collection Method Collection Time Receive d Time (Source) Location / / Volume Laterality Blood specimen 02/04/2014 5:49 AM 014 5:51 (specimen) CDT AM CDT Omaira Chavez PA-C LAB - BLOOD ORDERABLES Performing Organization Address City/State/[facility] Code Phon e Number [facility] [address] [place] [address] [facility] LABS (ABNORMAL) CBC with platelets differential (02/04/2014 5:49 AM CDT) [facility] gist Method Time Signature WBC 13.8 (H) 4.0 - [facility] 11.0 [place] 10e9/L [place] [facility] RBC Count 3.10 (L) 4.4 - 5.9 [facility] 10e12/L [facility] Hemoglobin 9.5 (L) 13.3 - [facility] 17.7 g/dL [facility] Hematocrit 28.7 (L) 40.0 - [facility] 53.0 % [facility] MCV 93 78 - 100 [facility] fl [facility] MCH 30.6 26.5 - [facility] 33.0 pg [facility] MCHC 33.1 31.5 - [facility] 36.5 g/dL [facility] RDW 14.6 10.0 - [facility] 15.0 % [facility] Platelet Count 91 (L) 150 - 450 [facility] 10e9/L [facility] Diff Method Automated [facility] Method [facility] % Neutrophils 95.8 % [facility] % Lymphocytes 1.2 % [facility] % Monocytes 2.8 % [facility] % Eosinophils 0.0 % [facility] [place] [facility] % Basophils 0.0 % [facility] % Immature 0.2 % [facility] Granulocytes [facility] Absolute 13.2 (H) 1.6 - 8.3 [facility] Neutrophil 10e9/L [facility] Absolute 0.2 (L) 0.8 - 5.3 [facility] Lymphocytes 10e9/L [facility] Absolute 0.4 0.0 - 1.3 [facility] Monocytes 10e9/L [facility] Absolute 0.0 0.0 - 0.7 [facility] Eosinophils 10e9/L [facility] Absolute 0.0 0.0 - 0.2 [facility] Basophils 10e9/L [facility] Abs Immature 0.0 0 - 0.4 [facility] Granulocytes 10e9/L [facility] Specimen Anatomical Collection Method Collection Time Receive d Time (Source) Location / / Volume Laterality Blood specimen 02/04/2014 5:49 AM 014 5:51 (specimen) CDT AM CDT Omaira Chavez PA-C LAB - BLOOD ORDERABLES Performing Organization Address City/State/ZIP Code Phon e Number [phone] [place] [address] LABS (ABNORMAL) Glucose by meter (02/04/2014 5:33 [...] LARES - ROBERT POCT Performing Organization Address [facility]/ZIP Code Phon e Number [...] LARES - ROBERT POCT Performing Organization Address [facility] Code [...] LARES - ROBERT POCT Performing Organization Address [facility] Code [...] CDT Migel JONES POCT Performing Organization Address [facility] Code [...] LARES - ROBERT POCT Performing Organization Address City/[facility]/ZIP Code Phon e Number [facility] POINT OF CARE TEST, GLUCOSE POINT OF CARE TEST, GLUCOSE Potassium (02/03/2014 10:16 PM CDT) athologist Signature Potassium 4.8 3.4 - 5.3 [facility] mmol/L CAMPUS LABS Specimen Anatomical Collection Method Collection Time Receive d Time (Source) Location / / Volume Laterality Blood specimen 02/03/2014 10:16 4 (specimen) PM CDT 10:19 PM CDT Caitlin Owens MD LAB - BLOOD ORDERABLES Performing Organization Address [facility] Phon e Number [address] LABS (ABNORMAL) Hemoglobin (02/03/2014 10:16 PM CDT) athologist Signature Hemoglobin 9.4 (L) 13.3 - 17.7 [facility] g/dL [place] [facility] Specimen Anatomical Collection Method Collection Time Receive d Time (Source) Location / / Volume Laterality Blood specimen 02/03/2014 10:16 4 (specimen) PM CDT 10:19 PM CDT Caitlin Owens MD LAB - BLOOD ORDERABLES Performing Organization Address City/[facility]/ZIP [facility] Phon e Number [facility] [address] LABS (ABNORMAL) Glucose by meter (02/03/2014 9:55 PM CDT) athologist Signature Glucose 167 (H) 60 - 99 POINT OF CARE mg/dL TEST, GLUCOSE Specimen Anatomical Collection Method Collection Time Receive d Time (Source) Location / / Volume Laterality 02/03/2014 9:55 PM 4 CDT 10:00 PM CDT Mgiel Merchant MD LAB - BEAJ POCT Performing Organization Address City/[facility]/ZIP Code Phon e Number [...] LAB - BEAJ POCT Performing Organization Address City/[facility]/ZIP Code Phon e Number [...] athologist Signature Potassium 4.7 3.4 - 5.3 [facility] mmol/L CAMPUS LABS Specimen Anatomical Collection Method Collection Time Receive d Time (Source) Location / / Volume Laterality Blood specimen 02/03/2014 6:52 PM 014 6:53 (specimen) CDT PM CDT Caitlin Owens MD LAB - BLOOD ORDERABLES Performing Organization Address City/[facility]/ZIP Code Phon e Number [facility] [address] LABS (ABNORMAL) Hemoglobin (02/03/2014 6:52 PM CDT) athologist Signature Hemoglobin 9.6 (L) 13.3 - 17.7 [facility] g/dL [place] [facility] Specimen Anatomical Collection Method Collection Time Receive d Time (Source) Location / / Volume Laterality Blood specimen 02/03/2014 6:52 PM 014 6:53 (specimen) CDT PM CDT Caitlin Owens MD LAB - BLOOD ORDERABLES Performing Organization Address City/[facility]/ZIP Code Phon e Number [facility] [address] LABS (ABNORMAL) Glucose by meter (02/03/2014 6:00 PM CDT) athologist Signature Glucose 140 (H) 60 - 99 POINT OF CARE mg/dL TEST, GLUCOSE Specimen Anatomical Collection Method Collection Time Receive d Time (Source) Location / / Volume Laterality 02/03/2014 6:00 PM 4 6:05 CDT PM CDT Migel JONES POCT Performing Organization Address City/[facility]/ZIP Code Phon e Number [...] CDT Migel JONES POCT Performing Organization Address City/[facility]/ZIP Code Phon e Number [...] 4:00 PM 4 4:05 CDT PM CDT Migle Merchant MD LAB - BEAKER POCT Performing Organization Address City/[facility]/ZIP Code Phon e Number [...] LAB - BEAKER POCT Performing Organization Address [facility] Phon e Number [facility]V POINT OF CARE TEST, GLUCOSE POINT OF CARE TEST, GLUCOSE Potassium (02/03/2014 1:41 PM CDT) athologist Signature Potassium 4.7 3.4 - 5.3 [facility] mmol/L CAMPUS LABS Specimen Anatomical Collection Method Collection Time Receive d Time (Source) Location / / Volume Laterality Blood specimen 02/03/2014 1:41 PM 014 1:43 (specimen) CDT PM CDT Caitlin Owens MD LAB - BLOOD ORDERABLES Performing Organization Address [facility] Code Phon e Number [address] LABS (ABNORMAL) Hemoglobin (02/03/2014 1:41 PM CDT) athologist Signature Hemoglobin 9.8 (L) 13.3 - 17.7 [facility] g/dL [place] [facility] Specimen Anatomical Collection Method Collection Time Receive d Time (Source) Location / / Volume Laterality Blood specimen 02/03/2014 1:41 PM 014 1:43 (specimen) CDT PM CDT Cailtin Owens MD LAB - BLOOD ORDERABLES Performing Organization Address City/[facility] Phon e Number [address] [facility] LABS (ABNORMAL) Glucose by [...] LAB - ROBERT POCT Performing Organization Address City/[facility]/ZIP Code Phon e Number [...] LAB - BEAKER POCT Performing Organization Address City/[facility]/ZIP Code Phon e Number [facility]V POINT OF CARE TEST, GLUCOSE POINT OF CARE TEST, GLUCOSE Potassium (02/03/2014 10:11 AM CDT) P athologist Signature Potassium 4.8 3.4 - 5.3 [facility] mmol/L [place] [facility] Specimen Anatomical Collection Method Collection Time Receive d Time (Source) Location / / Volume Laterality Blood specimen 02/03/2014 10:11 4 (specimen) AM CDT 10:23 AM CDT Caitlin Owens MD LAB - BLOOD ORDERABLES Performing Organization Address City/[facility]/ZIP Code Phon e Number [facility] [address] [place], [place] [phone] [place] [address] LABS (ABNORMAL) Hemoglobin (02/03/2014 10:11 AM CDT) athologist Signature Hemoglobin 9.7 (L) 13.3 - 17.7 [facility] g/dL [place] [facility] Specimen Anatomical Collection Method Collection Time Receive d Time (Source) Location / / Volume Laterality Blood specimen 02/03/2014 10:11 4 (specimen) AM CDT 10:23 AM CDT Caitlin Owens MD LAB - BLOOD ORDERABLES Performing Organization Address City/[facility]/ZIP Code Phon e Number [facility] [address] [place], [place] [id number] [place] [address] LABS (ABNORMAL) Glucose by meter (02/03/2014 9:58 AM CDT) athologist Signature Glucose 168 (H) 60 - 99 POINT OF CARE mg/dL TEST, GLUCOSE Specimen Anatomical Collection Method Collection Time Receive d Time (Source) Location / / Volume Laterality 02/03/2014 9:58 AM 4 CDT 10:00 AM CDT Migel LARES - ROBERT POCT Performing Organization Address City/[facility]/ZIP Code Phon e Number [...] LARES - ROBERT POCT Performing Organization Address City/[facility]/ZIP Code Phon e Number [...] LARES - ROBERT POCT Performing Organization Address [facility] Phon e Number FV POINT [...] LARES - ROBERT POCT Performing Organization Address [facility] Phon e Number FV POINT [...] LARES - BEAJ POCT Performing Organization Address [facility] Phon e Number FV POINT OF CARE TEST, GLUCOSE POINT OF CARE TEST, GLUCOSE (ABNORMAL) Basic metabolic panel (02/03/2014 5:38 AM CDT) [facility] gist Method Time Signature Sodium 141 133 - 144 [facility] mmol/L [facility] [place] [facility] Potassium 4.4 3.4 - 5.3 [facility] mmol/L [facility] Chloride 105 94 - 109 [facility] mmol/L [facility] Carbon Dioxide 20 20 - 32 [facility] mmol/L [facility] [place] [facility] Anion Gap 15 6 - 17 [facility] mmol/L [facility] Glucose 170 (H) 60 - 99 [facility] mg/dL [facility] Urea Nitrogen 49 (H) 7 - 30 [facility] mg/dL [facility] Creatinine 6.38 (H) 0.66 - [facility] 1.25 mg/dL [facility] GFR Estimate 9 (L) >60 [facility] mL/min/1.7 [place] m2 [facility]AMPUS LABS GFR Estimate If 11 (L) >60 [facility] Black mL/min/1.7 [place] m2 [facility]AMPUS LABS Calcium 9.1 8.5 - 10.4 [facility] mg/dL [facility] Specimen Anatomical Collection Method Collection Time Receive d Time (Source) Location / / Volume Laterality Blood specimen 02/03/2014 5:38 AM 014 5:40 (specimen) CDT AM CDT Omaira Chavez PA-C LAB - BLOOD ORDERABLES Performing Organization Address City/[facility]/ZIP Code Phon e Number [facility] [address] LABS (ABNORMAL) Phosphorus (02/03/2014 5:38 AM CDT) P athologist Signature Phosphorus 4.7 (H) 2.5 - 4.5 [facility] mg/dL [place] [facility] Specimen Anatomical Collection Method Collection Time Receive d Time (Source) Location / / Volume Laterality Blood specimen 02/03/2014 5:38 AM 014 5:40 (specimen) CDT AM CDT Omaira Chavez PA-C LAB - BLOOD ORDERABLES Performing Organization Address City/State/ZIP Code Phon e Number [facility] [address] LABS Magnesium (02/03/2014 5:38 AM CDT) P athologist Signature Magnesium 2.0 1.6 - 2.3 [facility] mg/dL [place] LABS Specimen Anatomical Collection Method Collection Time Receive d Time (Source) Location / / Volume Laterality Blood specimen 02/03/2014 5:38 AM 014 5:40 (specimen) CDT AM CDT Omaira Chavez PA-C LAB - BLOOD ORDERABLES Performing Organization Address City/State/ZIP Code Phon e Number [facility] [address] LABS (ABNORMAL) CBC with platelets differential (02/03/2014 5:38 AM CDT) Patholo gist Method Time Signature WBC 13.2 (H) 4.0 - [facility] 11.0 [facility] 10e9/L [place] LABS RBC Count 3.20 (L) 4.4 - 5.9 [facility] 10e12/L [facility] LABS Hemoglobin 9.9 (L) 13.3 - [facility] 17.7 g/dL [facility] LABS Hematocrit 30.2 (L) 40.0 - [facility] 53.0 % [facility] LABS MCV 94 78 - 100 [facility] fl [facility] LABS MCH 30.9 26.5 - [facility] 33.0 pg [facility] LABS MCHC 32.8 31.5 - [facility] 36.5 g/dL [facility] LABS RDW 14.5 10.0 - [facility] 15.0 % [facility] LABS Platelet Count 108 (L) 150 - 450 [facility] 10e9/L [facility] LABS Diff Method Automated [facility] Method [facility] LABS % Neutrophils 96.9 % [facility] % Lymphocytes 0.7 % [facility] % Monocytes 2.1 % [facility] LABS % Eosinophils 0.0 % [facility] LABS % Basophils 0.1 % [facility] LABS % Immature 0.2 % [facility] Granulocytes [facility] LABS Absolute 12.8 (H) 1.6 - 8.3 [facility] Neutrophil 10e9/L [facility] LABS Absolute 0.1 (L) 0.8 - 5.3 [facility] Lymphocytes 10e9/L [facility] LABS Absolute 0.3 0.0 - 1.3 [facility] Monocytes 10e9/L [facility] LABS Absolute 0.0 0.0 - 0.7 [facility] Eosinophils 10e9/L [facility] LABS Absolute 0.0 0.0 - 0.2 [facility] Basophils 10e9/L [facility] LABS Abs Immature 0.0 0 - 0.4 [facility] Granulocytes 10e9/L [facility] LABS Specimen Anatomical Collection Method Collection Time Receive d Time (Source) Location / / Volume Laterality Blood specimen 02/03/2014 5:38 AM 014 5:40 (specimen) CDT AM CDT Omaira Chavez PA-C LAB - BLOOD ORDERABLES Performing Organization Address City/State/ZIP Code Phon e Number [facility] [address] [place] [address] [facility] LABS (ABNORMAL) Hemoglobin A1c (02/03/2014 5:38 AM CDT) Analysis Performed At Patho logist Time Signature Hemoglobin A1C 6.2 (H) 4.3 - 6.0 [facility] LABS Specimen Anatomical Collection Method Collection Time Receive d Time (Source) Location / / Volume Laterality Blood specimen 02/03/2014 5:38 AM 014 5:40 (specimen) CDT AM CDT Caitlin Owens MD LAB - BLOOD ORDERABLES Performing Organization Address City/[facility]/ZIP Code Phon e Number [facility] [address] [place] [address] [facility] LABS (ABNORMAL) Glucose by meter (02/03/2014 [...] LARES - ROBERT POCT Performing Organization Address City/[facility]/ZIP Code Phon e Number [...] LARES - ROBERT POCT Performing Organization Address [facility] Phon e Number [facility] POINT OF CARE TEST, GLUCOSE POINT OF CARE TEST, GLUCOSE Potassium (02/03/2014 1:18 AM CDT) athologist Signature Potassium 4.7 3.4 - 5.3 [facility] mmol/L CAMPUS LABS Specimen Anatomical Collection Method Collection Time Receive d Time (Source) Location / / Volume Laterality Blood specimen 02/03/2014 1:18 AM 014 1:20 (specimen) CDT AM CDT Caitlin Owens MD LAB - BLOOD ORDERABLES Performing Organization Address [facility] Phon e Number [address] LABS (ABNORMAL) Hemoglobin (02/03/2014 1:18 AM CDT) athologist Signature Hemoglobin 9.8 (L) 13.3 - 17.7 [facility] g/dL CAMPUS LABS Specimen Anatomical Collection Method Collection Time Receive d Time (Source) Location / / Volume Laterality Blood specimen 02/03/2014 1:18 AM 014 1:20 (specimen) CDT AM CDT Caitlin Owens MD LAB - BLOOD ORDERABLES Performing Organization Address [facility] Phon e Number [address] LABS (ABNORMAL) Glucose by meter (02/03/2014 1:16 AM CDT) P athologist Signature Glucose 186 (H) 60 - 99 POINT OF CARE mg/dL TEST, GLUCOSE Specimen Anatomical Collection Method Collection Time Receive d Time (Source) Location / / Volume Laterality 02/03/2014 1:16 AM 4 1:20 CDT AM CDT Migel Merchant MD LAB - BEAKER POCT Performing Organization Address City/[facility] Phon e Number FV POINT [...] LAB - BEAKER POCT Performing Organization Address [facility] Phon e Number [facility]V POINT [...] athologist Signature Phosphorus 4.4 2.5 - 4.5 [facility] mg/dL [place] LABS Specimen Anatomical Collection Method Collection Time Receive d Time (Source) Location / / Volume Laterality Blood specimen 02/02/2014 10:50 4 (specimen) PM CDT 11:06 PM CDT Caitlin Owens MD LAB - BLOOD ORDERABLES Performing Organization Address City/State/ZIP Code Phon e Number [facility] [address] [place] [address] [facility] LABS Magnesium (02/02/2014 10:50 PM CDT) athologist Signature Magnesium 1.8 1.6 - 2.3 [facility] mg/dL CAMPUS LABS Specimen Anatomical Collection Method Collection Time Receive d Time (Source) Location / / Volume Laterality Blood specimen 02/02/2014 10:50 4 (specimen) PM CDT 11:06 PM CDT Caitlin Owens MD LAB - BLOOD ORDERABLES Performing Organization Address City/[facility]/ZIP Code Phon e Number [facility] 500 [place], [place] [id number] [place] [address] LABS (ABNORMAL) Basic metabolic panel (02/02/2014 10:50 PM CDT) [facility] Method Time Signature Sodium 138 133 - 144 [facility] mmol/L [facility] [place] LABS Potassium 4.5 3.4 - 5.3 [facility] mmol/L [facility] LABS Chloride 104 94 - 109 [facility] mmol/L [facility] LABS Carbon Dioxide 25 20 - 32 [facility] mmol/L [facility] LABS Anion Gap 10 6 - 17 [facility] mmol/L [facility] LABS Glucose 134 (H) 60 - 99 [facility] mg/dL [facility] LABS Urea Nitrogen 44 (H) 7 - 30 [facility] mg/dL [facility] LABS Creatinine 6.14 (H) 0.66 - [facility] 1.25 mg/dL [facility] LABS GFR Estimate 9 (L) >60 [facility] mL/min/1.7 [facility] m2 CAMPUS LABS GFR Estimate If 11 (L) >60 [facility] Black mL/min/1.7 [place] m2 CAMPUS LABS Calcium 8.8 8.5 - 10.4 [facility] mg/dL [facility] LABS Specimen Anatomical Collection Method Collection Time Receive d Time (Source) Location / / Volume Laterality Blood specimen 02/02/2014 10:50 4 (specimen) PM CDT 11:06 PM CDT Caitlin Owens MD LAB - BLOOD ORDERABLES Performing Organization Address City/[facility]/ZIP Code Phon e Number [facility] [address] [place] [address] [facility] LABS (ABNORMAL) CBC with platelets differential (02/02/2014 10:50 PM CDT) [facility] Method Time Signature WBC 8.2 4.0 - [facility] 11.0 [place] 10e9/L [place] LABS RBC Count 3.34 (L) 4.4 - 5.9 [facility] 10e12/L [facility] LABS Hemoglobin 10.3 (L) 13.3 - [facility] 17.7 g/dL [facility] LABS Hematocrit 30.9 (L) 40.0 - [facility] 53.0 % [facility] LABS MCV 93 78 - 100 [facility] fl [facility] LABS MCH 30.8 26.5 - [facility] 33.0 pg [facility] LABS MCHC 33.3 31.5 - [facility] 36.5 g/dL [facility] LABS RDW 14.3 10.0 - [facility] 15.0 % [facility] LABS Platelet Count 79 (L) 150 - 450 [facility] 10e9/L [facility] LABS Diff Method Automated [facility] Method [facility] LABS % Neutrophils 96.7 % [facility] LABS % Lymphocytes 1.6 % [facility] LABS % Monocytes 1.2 % [facility] LABS % Eosinophils 0.4 % [facility] % Basophils 0.0 % [facility] LABS % Immature 0.1 % [facility] Granulocytes [facility] LABS Absolute 7.9 1.6 - 8.3 [facility] Neutrophil 10e9/L [facility] LABS Absolute 0.1 (L) 0.8 - 5.3 [facility] Lymphocytes 10e9/L [facility] LABS Absolute 0.1 0.0 - 1.3 [facility] Monocytes 10e9/L [facility] LABS Absolute 0.0 0.0 - 0.7 [facility] Eosinophils 10e9/L [facility] LABS Absolute 0.0 0.0 - 0.2 [facility] Basophils 10e9/L [facility] LABS Abs Immature 0.0 0 - 0.4 [facility] Granulocytes 10e9/L [facility] LABS Specimen Anatomical Collection Method Collection Time Receive d Time (Source) Location / / Volume Laterality Blood specimen 02/02/2014 10:50 4 (specimen) PM CDT 11:06 PM CDT Caitlin Owens MD LAB - BLOOD ORDERABLES Performing Organization Address City/State/ZIP Code Phon e Number [phone] [place] [address] LABS (ABNORMAL) VENOUS PANEL (02/02/2014 10:09 PM CDT) [facility] g[facility] Method Time Signature Ph Venous 7.31 (L) 7.32 - [facility] 7.43 pH [facility] LABS PCO2 Venous 52 (H) 40 - 50 [facility] mm Hg [facility] LABS PO2 Venous 34 25 - 47 [facility] mm Hg [facility] LABS Bicarbonate 26 21 - 28 [facility] Venous mmol/L [facility] LABS Base Deficit 0.3 mmol/L [facility] Venous [facility] LABS Comment: Reference range: -7.7 to 1.9 FIO2 45 [facility] LABS Sodium 137 133 - 144 mmol/L [facility] LABS Potassium 4.4 3.4 - 5.3 mmol/L [facility] LABS Hemoglobin 10.0 (L) 13.3 - 17.7 g/dL [facility] LABS Glucose 116 (H) 60 - 99 mg/dL [facility] LABS Calcium Ionized Whole Blood 4.8 4.4 - 5.2 mg/dL [facility] LABS Specimen Anatomical Collection Method Collection Time Receive d Time (Source) Location / / Volume Laterality 02/02/2014 10:09 02/02/2014 PM CDT 10:14 PM CDT Migel Merchant MD LAB - BLOOD ORDERABLES Performing Organization Address City/[facility]/ZIP Code Phon e Number [id number] [place] [address] LABS (ABNORMAL) Glucose by meter (02/02/2014 9:24 PM CDT) P athologist Signature Glucose 129 (H) 60 - 99 POINT OF CARE mg/dL TEST, GLUCOSE Specimen Anatomical Collection Method Collection Time Receive d Time (Source) Location / / Volume Laterality 02/02/2014 9:24 PM 4 9:31 CDT PM CDT Migel Merchant MD LAB - BEAKER POCT Performing Organization Address City/[facility]/ZIP Code Phon e Number [...] LAB - BEAKER POCT Performing Organization Address City/[facility]/ZIP Code Phon e Number [facility] POINT OF CARE TEST, GLUCOSE POINT OF CARE TEST, GLUCOSE (ABNORMAL) VENOUS PANEL (02/02/2014 6:40 PM CDT) athologist Signature Ph Venous 7.35 7.32 - [facility] 7.43 pH [facility] LABS PCO2 Venous 50 40 - 50 mm [facility] Hg [facility] LABS PO2 Venous 46 25 - 47 mm [facility] Hg [facility] LABS Bicarbonate 28 21 - 28 [facility] Venous mmol/L [facility] LABS Base Excess 1.8 mmol/L [facility] Venous [facility] LABS Comment: Reference range: -7.7 to 1.9 F[facility]2 100% [facility] LABS Sodium 141 133 - 144 mmol/L [facility] LABS Potassium 3.7 3.4 - 5.3 mmol/L [facility] LABS Hemoglobin 10.3 (L) 13.3 - 17.7 g/dL [facility] LABS Glucose 76 60 - 99 mg/dL [facility] LABS Calcium Ionized Whole Blood 4.8 4.4 - 5.2 mg/dL [facility] LABS Specimen Anatomical Collection Method Collection Time Receive d Time (Source) Location / / Volume Laterality 02/02/2014 6:40 PM 4 6:44 CDT PM CDT Migel Merchant MD LAB - BLOOD ORDERABLES Performing Organization Address City/State/ZIP Code Phon e Number [phone] [place] [address] LABS Glucose by meter (02/02/2014 5:11 PM [...] 3:50 CDT PM CDT Migel Merchant MD [facility] POCT Performing Organization Address City/State/ZIP Code [...] MARYELLEN Blood component (02/02/2014 2:07 PM CDT) [facility] Method Time Signature Unit Number [id number] [facility] LABS Blood Red Blood [facility] Component Cells [facility] Leukocyte [place] LABS Reduced Division 00 [facility] Number [facility] LABS Status of No longer [place] Unit available [facility] 02/06/2014 HOSPITAL LAB 0300 Specimen Anatomical Collection Method Collection Time Receive d Time (Source) Location / / Volume Laterality 02/02/2014 2:07 PM 4 2:10 CDT PM CDT Caitlin Owens MD LABORATORY Performing Organization Address City/State/ZIP Code Phon e Number [facility] [address] [place], [place] [address] [facility] LABS [facility] LAB Blood component (02/02/2014 2:07 PM CDT) [facility] [employer] Method Time Signature Unit Number [id number] [facility] LABS Blood Red Blood [facility] Component Cells [facility] Leukocyte [place] LABS Reduced Division 00 [facility] LABS Status of No longer [place] Unit available [facility] 02/06/2014 HOSPITAL LAB 0300 Specimen Anatomical Collection Method Collection Time Receive d Time (Source) Location / / Volume Laterality 02/02/2014 2:07 PM 4 2:10 CDT PM CDT Caitlin Owens MD LABORATORY Performing Organization Address City/[facility]/ZIP Code Phon e Number [place] [address] [place], [place] [address] [facility] LAB ABO/Rh type and screen (02/02/2014 2:07 PM CDT) [facility] [employer] Method Time Signature Units Ordered 2 [facility] LABS ABO A [facility] LABS RH(D) Pos [facility] LABS Antibody Neg [facility] Screen [facility] LABS Test Valid [facility] Only At [facility] BLOOD BANK Center,Aide LAB w Hospital Specimen 02/05/2014 [facility] BLOOD BANK LAB Crossmatch Red Blood [facility] Cells [facility] LABS Specimen Anatomical Collection Method Collection Time Receive d Time (Source) Location / / Volume Laterality Blood specimen 02/02/2014 2:07 PM 014 2:10 (specimen) CDT PM CDT Caitlin Owens MD LAB - BLOOD BANK TEST ORDER Performing Organization Address City/State/ZIP Code Phon e Number [facility] [address] [place] [address] [facility] LABS [facility] BLOOD BANK LAB (ABNORMAL) Lipid Profile (02/02/2014 2:07 PM CDT) P athologist Signature Cholesterol 135 <200 mg/dL [facility] LABS Comment: LDL Cholesterol is the primary guide to therapy. The NCEP recommends further evaluation of: patients with cholesterol greater than 200 mg/dL if additional risk facto rs are present, cholesterol greater than 240 mg/dL, triglycerides greater than 1 50 mg/dL, or HDL less than 40 mg/dL. Triglycerides 124 0 - 150 mg/dL [facility] ITY [place] LABS HDL Cholesterol 34 (L) >40 mg/dL [facility] LABS LDL Cholesterol Calculated 77 0 - 129 mg/dL [facility] LABS Comment: LDL Cholesterol is the primary guide to therapy: LDL-cholesterol goal in high risk patients is <100 mg/dL and in very high risk patients is <70 mg/dL. VLDL-Cholesterol 25 0 - 30 mg/dL [place] [facility] LABS Cholesterol/HDL Ratio 4.0 0.0 - 5.0 [facility] LABS Specimen Anatomical Collection Method Collection Time Receive d Time (Source) Location / / Volume Laterality Blood specimen 02/02/2014 2:07 PM 2 014 2:08 (specimen) CDT PM CDT Caitlin Owens MD LAB - BLOOD ORDERABLES Performing Organization Address City/[facility]/ZIP Code Phon e Number [address] LABS (ABNORMAL) Hemoglobin A1c (02/02/2014 2:07 PM CDT) Analysis Performed At Patho logist Time Signature Hemoglobin A1C 6.2 (H) 4.3 - 6.0 [facility] LABS Specimen Anatomical Collection Method Collection Time Receive d Time (Source) Location / / Volume Laterality Blood specimen 02/02/2014 2:07 PM 2 014 2:08 (specimen) CDT PM CDT Caitlin Owens MD LAB - BLOOD ORDERABLES Performing Organization Address City/State/ZIP Code Phon e Number [address] LABS Hepatitis C antibody (02/02/2014 2:07 PM CDT) Patholo gist Method Time Signature Hepatitis C Negative NEG [facility] Antibody MICROBIOLOGY Specimen Anatomical Collection Method Collection Time Receive d Time (Source) Location / / Volume Laterality Blood specimen 02/02/2014 2:07 PM 2 014 2:08 (specimen) CDT PM CDT Caitlin Owens MD LAB - BLOOD ORDERABLES Performing Organization Address City/[facility]/ZIP Code Phon e Number [facility] [address] [place], [place] [phone] [place] [address] MICROBIOLOGY Hepatitis B core antibody IgM (02/02/2014 2:07 PM CDT) [facility] Method Time Signature Hepatitis B Negative NEG [facility] Core IgM MICROBIOLOGY Specimen Anatomical Collection Method Collection Time Receive d Time (Source) Location / / Volume Laterality Blood specimen 02/02/2014 2:07 PM 014 2:08 (specimen) CDT PM CDT Caitlin Owens MD LAB - BLOOD ORDERABLES Performing Organization Address City/[facility]/ZIP Code Phon e Number [facility] [address] MICROBIOLOGY Hepatitis B surface antigen (02/02/2014 2:07 PM CDT) [facility] Method Time Signature Hep B Surface Negative NEG [facility] Agn MICROBIOLOGY Specimen Anatomical Collection Method Collection Time Receive d Time (Source) Location / / Volume Laterality Blood specimen 02/02/2014 2:07 PM 2 014 2:08 (specimen) CDT PM CDT Caitlin Oewns MD LAB - BLOOD ORDERABLES Performing Organization Address City/[facility]/ZIP Code Phon e Number [facility] [address] [place], [place] [phone] [place] [address] MICROBIOLOGY HIV Antigen Antibody Combo (02/02/2014 2:07 PM CDT) [facility] Method Time Signature HIV Antigen Nonreactive NR [facility] Antibody HIV-1 p24 Ag & HIV-1/HIV-2 Ab Not Detected [facility] LABS Specimen Anatomical Collection Method Collection Time Receive d Time (Source) Location / / Volume Laterality Blood specimen 02/02/2014 2:07 PM 014 2:08 (specimen) CDT PM CDT Caitlin Owens MD LAB - BLOOD ORDERABLES Performing Organization Address City/[facility]/ZIP Code Phon e Number [facility] [address] [place], [place] [phone] [place] [address] UN[facility]AMP[facility] LABS EBV Capsid Antibody IgM (02/02/2014 2:07 PM CDT) [facility] Method Time Signature EBV Capsid <0.2 0.0 - 0.8 [facility] Antibody IgM No detectable antibody. [facility] LABS Specimen Anatomical Collection Method Collection Time Receive d Time (Source) Location / / Volume Laterality Blood specimen 02/02/2014 2:07 PM 014 2:08 (specimen) CDT PM CDT Ciatlin Owens MD LAB - BLOOD ORDERABLES Performing Organization Address City/[facility]/ZIP Code Phon e Number [facility] [address] LABS (ABNORMAL) EBV Capsid Antibody IgG (02/02/2014 2:07 PM CDT) [facility] Method Time Signature EBV Capsid >8.0 0.0 - 0.8 [facility] Antibody IgG Positive, suggests recent or past exposure [facility] () [place] LABS Specimen Anatomical Collection Method Collection Time Receive d Time (Source) Location / / Volume Laterality Blood specimen 02/02/2014 2:07 PM 014 2:08 (specimen) CDT PM CDT Caitlin Owens MD LAB - BLOOD ORDERABLES Performing Organization Address City/[facility]/ZIP Code Phon e Number [facility] [address] LABS CMV antibody IgM (02/02/2014 2:07 PM CDT) Analysis Performed At Patho logist Time Signature CMV Antibody <0.2 0.0 - 0.8 [facility] IgM Negative [facility] LABS Specimen Anatomical Collection Method Collection Time Receive d Time (Source) Location / / Volume Laterality Blood specimen 02/02/2014 2:07 PM 014 2:08 (specimen) CDT PM CDT Caitlin Owens MD LAB - BLOOD ORDERABLES Performing Organization Address City/[facility]/ZIP Code Phon e Number [facility] [address] LABS (ABNORMAL) CMV Antibody IgG (02/02/2014 [...] Phon e Number [facility] [address] [place] [address] [place] [facility] LABS (ABNORMAL) Comprehensive metabolic panel (02/02/2014 2:07 PM CDT) [facility] gist Method Time Signature Sodium 141 133 - 144 [facility] mmol/L [facility] LABS Potassium 4.2 3.4 - 5.3 [facility] mmol/L [facility] LABS Chloride 101 94 - 109 [facility] mmol/L [facility] LABS Carbon Dioxide 26 20 - 32 [facility] mmol/L [facility] LABS Anion Gap 13 6 - 17 [facility] mmol/L [facility] LABS Glucose 112 (H) 60 - 99 [facility] mg/dL [facility] LABS Urea Nitrogen 42 (H) 7 - 30 [facility] mg/dL [facility] LABS Creatinine 6.03 (H) 0.66 - [facility] 1.25 [facility]ITY mg/dL CAMPUS LABS GFR Estimate 9 (L) >60 [facility] mL/min/1. [place] [address] LABS GFR Estimate If 11 (L) >60 [facility] Black mL/min/1. [address] LABS Calcium 9.9 8.5 - [facility] 10.4 UNIVERSITY mg/dL CAMPUS LABS Bilirubin Total 0.7 0.2 - 1.3 [facility] mg/dL [facility] LABS Albumin 4.2 3.3 - 4.9 [facility] g/dL [facility] LABS Protein Total 7.5 6.8 - 8.8 [facility] g/dL [facility] LABS Alkaline 88 40 - 150 [facility] Phosphatase U/L [facility] LABS ALT 33 0 - 70 [facility] U/L [facility] LABS AST 18 0 - 45 [facility] U/L [facility] LABS Specimen Anatomical Collection Method Collection Time Receive d Time (Source) Location / / Volume Laterality Blood specimen 02/02/2014 2:07 PM 014 2:08 (specimen) CDT PM CDT Caitlin Owens MD LAB - BLOOD ORDERABLES Performing Organization Address City/State/ZIP Code Phon e Number [facility] [address] [place] [address] [place] [facility] LAB[facility] (ABNORMAL) CBC with platelets differential (02/02/2014 2:07 PM CDT) [facility] gist Method Time Signature WBC 6.3 4.0 - [facility] 11.0 [place] 10e9/L [place] LABS RBC Count 3.71 (L) 4.4 - 5.9 [facility] 10e12/L [facility] LABS Hemoglobin 11.5 (L) 13.3 - [facility] 17.7 g/dL [facility] LABS Hematocrit 33.7 (L) 40.0 - [facility] 53.0 % [facility] LABS MCV 91 78 - 100 [facility] fl [facility] LABS MCH 31.0 26.5 - [facility] 33.0 pg [facility] LABS MCHC 34.1 31.5 - [facility] 36.5 g/dL [facility] LABS RDW 14.0 10.0 - [facility] 15.0 % [facility] LABS Platelet Count 110 (L) 150 - 450 [facility] 10e9/L [facility] [facility] Diff Method Automated [facility] Method [facility] % Neutrophils 52.4 % [facility] % Lymphocytes 32.1 % [facility] % Monocytes 7.9 % [facility] % Eosinophils 7.1 % [facility] % Basophils 0.3 % [facility] % Immature 0.2 % [facility] Granulocytes [facility] Absolute 3.3 1.6 - 8.3 [facility] Neutrophil 10e9/L [facility] Absolute 2.0 0.8 - 5.3 [facility] Lymphocytes 10e9/L [facility] Absolute 0.5 0.0 - 1.3 [facility] Monocytes 10e9/L [facility] Absolute 0.5 0.0 - 0.7 [facility] Eosinophils 10e9/L [facility] Absolute 0.0 0.0 - 0.2 [facility] Basophils 10e9/L [facility] Abs Immature 0.0 0 - 0.4 [facility] Granulocytes 10e9/L [facility] Specimen Anatomical Collection Method Collection Time Receive d Time (Source) Location / / Volume Laterality Blood specimen 02/02/2014 2:07 PM 014 2:08 (specimen) CDT PM CDT Caitlin Owens MD LAB - BLOOD ORDERABLES Performing Organization Address City/State/ZIP Code Phon e Number [facility] [address] [place] [address] [facility] Creatinine urine calculation only (02/02/2014 2:00 PM CDT) P athologist Signature Creatinine 88 mg/dL [facility] Urine [place] [facility] Specimen Anatomical Collection Method Collection Time Receive d Time (Source) Location / / Volume Laterality 02/02/2014 2:00 PM 4 2:12 CDT PM CDT Caitlin Owens MD LAB - URINE ORDERABLES Performing Organization Address City/State/ZIP Code Phon e Number [facility] [address] [place] [address] [facility] (ABNORMAL) Urine culture (02/02/2014 2:00 PM CDT) Component Value Ref Test Analysis Performed At [facility] Range Method Time Signature Specimen Midstream Urine [facility] Description [facility] Special Specimen received [facility] Requests in preservative MICROBIOLOGY Culture Micro <10,000 colonies/mL Gram pos itive cocci No further identification Susceptibility [facility] testing not routinely done DE CROBIOLOGY <10,000 colonies/mL Strain 2 Gram positive [...] MICRO GENERAL ORDERABL ES Performing Organization Address City/[facility]/ZIP Code Phon e Number [facility] [address] [place] [address] [facility] MICROBIOLOGY (ABNORMAL) Protein random urine (02/02/2014 2:00 PM CDT) [facility] gist Method Time Signature Protein Random 1.89 g/L [facility] Urine [facility] Protein Total 2.15 (H) 0 - 0.2 [facility] Urine g/gr g/g Cr [facility] Specimen Anatomical Collection Method Collection Time Receive d Time (Source) Location / / Volume Laterality Urine specimen URINE SPECIMEN 02/02/2014 2:00 PM 02/02 2:12 (specimen) OBTAINED BY CLEAN CDT PM CDT CATCH PROCEDURE / Unknown Caitlin Owens MD LAB - URINE ORDERABLES Performing Organization Address City/[facility]/ZIP Code Phon e Number [facility] [address] LABS (ABNORMAL) Routine UA with microscopic (02/02/2014 2:00 PM CDT) Patholo gist Method Time Signature Color Urine Light Yellow [facility] Appearance Urine Clear [facility] Glucose Urine 70 (A) NEG mg/dL [facility] Bilirubin Urine Negative NEG [facility] Ketones Urine Negative NEG mg/dL [facility] [place] [facility] Specific [place] 1.008 1.003 - [facility] Urine 1.035 [facility] [place] [facility] Blood Urine Negative NEG [facility] pH Urine 8.0 (H) 5.0 - 7.0 [facility] pH [facility] Protein Albumin 100 (A) NEG mg/dL [facility] Urine [facility] Urobilinogen Normal 0.0 - 2.0 [facility] mg/dL mg/dL [facility] Nitrite Urine Negative NEG [facility] Leukocyte Negative NEG [facility] Esterase U[facility] Source Clean catch [facility] urine [facility] WBC Urine 1 0 - [...] Phon e Number [facility] [address] [place] [address] [facility] (ABNORMAL) Glucose by meter (02/02/2014 [...] 12-lead, tracing only (02/02/2014 1:58 PM CDT) [facility] gist Method Time Signature [...] dose, When verbally ordered by the prescriber. Unity throat with 1-4 sprays 5 minutes prior [...] 11:15 PM CDT 0.4 mg HYDROmorphone (DILAUDID) EDI SPECIALIST 1 mg/mL Shift Total 02/03/2014 6:24 AM CDT EDI SPECIALIST dose (mg): 0.1, Max EDI SPECIALIST dose (mg): 0.2, Lockout Interval (min): 10 minutes, EDI SPECIALIST Continuous Rate (mg/hr): CONTINUOUS RATE IS [...] dose, When verbally ordered by the prescriber. Unity throat with 1-4 sprays 5 minutes prior [...] Ganesh Covarrubias RN)1840 (Given - Provider: Lashaun Braswlel RN) 0844 (Given - Provider: Lashaun Braswell [...] Gi isael - Provider: Lynne Gatica [facility] - Reason: Other - Comment: Dose already [...] draw. documented in this encounter Care Teams Medical Records Receptionist Relationship Specialty Start Date End Date Momo Forbes PCP - General Family Practice 01/02/14 [facility] [address] [place] [address] Ingrid Santana, RN Registered Nurse Transplant 02/10/12 documented as of this encounter
--- OUTSIDE RECORDS SUMMARY | 2022-06-30 11:03 | XMS_ITS | Encounter Summary ---
:1950 Author Organization [place] Address [address] [place] [address] Care Team Providers Name Role Phone Ingrid Santana RN Unavailable Unavailable Momo Forbes Primary Care Provider Encounter Details Date Type Department Care Team Description 02/02/2014 Results Only LABORATORY RESULTS Migel Merchant MD 420 [facility] 195 [place], [place] [phone] (Wo rk) Social History Tobacco Use Types [...] I Single Antigen (02/02/2014 6:51 PM CDT) [facility] Method Time Signature SA1 Test SA [...] Phon e Number [facility] Immunology/Histocompatabil [place], [place] [address] [facility] 500 [facility] [address] Building, Room 3-580 HISTOTRAC documented in this encounter Visit Diagnoses Not on filedocumented in this encounter Care Teams Clinic Manager Relationship Specialty Start Date End Date Momo Forbes PCP - General Family Practice 01/02/14 [facility] [address] [place] [address] Ingrid Santana, RN Registered Nurse Transplant 02/10/12 documented as of this encounter
--- OUTSIDE RECORDS SUMMARY | 2022-06-30 11:03 | XMS_ITS | Encounter Summary ---
:1950 Author Organization [place] Address [address] [place] [address] Care Team Providers Name Role Phone Ingrdi Santana RN Unavailable Unavailable Momo Forbes Primary Care Provider Encounter Details Date Type Department Care Team Description 02/02/2014 Results Only LABORATORY RESULTS Migel Merchant MD [address] [place] [address] 195 [place], [place] [address] (Wo rk) Social History Tobacco Use Types [...] T/B Crossmatch Auto (02/02/2014 6:51 PM CDT) [facility] Method Time Signature Crossmatch Donor:ELINOR GUTHRIE [...] Phon e Number [facility] Immunology/Histocompatabil [place], [place] [address] [facility] [address] [facility] [address] Building, Room 3-580 HISTOTRAC documented in this encounter Visit Diagnoses Not on filedocumented in this encounter Care Teams Soft Boarder Relationship Specialty Start Date End Date Momo Forbes PCP - General Family Practice 01/02/14 [facility] [address] [place] [address] Ingrid Santana, RN Registered Nurse Transplant 02/10/12 documented as of this encounter
--- OUTSIDE RECORDS SUMMARY | 2022-06-30 11:03 | XMS_ITS | Encounter Summary ---
:1950 Author Organization [place] Address [address] [place] [address]. [place] [address] Care Team Providers Name Role Phone Ingrid Santana RN Unavailable Unavailable Momo Forbes Primary Care Provider Reason for Visit Reason Comments Transplant Encounter Details Date Type Department Care Team Description 02/02/2014 Orders Only Transplant Surgery [place], End stage renal failure Clinic BOGDAN Mae on dialysis (H) 2nd Floor, Clinic 2A (Primary Dx) [address] [phone] Social History Tobacco Use Types Packs/Day Years [...] disease documented in this encounter Care Teams Card Scraper Relationship Specialty Start Date End Date Momo Forbes PCP - General Family Practice 01/02/14 [facility] [address] [place] [address] Ingrid Santana, RN Registered Nurse Transplant 02/10/12 documented as of this encounter
--- OUTSIDE RECORDS SUMMARY | 2022-06-30 11:03 | XMS_ITS | Encounter Summary ---
:1950 Author Organization [place] Address [facility] [place] [address] Care Team Providers Name Role Phone Ingrid Santana RN Unavailable Unavailable Momo Forbes Primary Care Provider Encounter Details Date Type Department Care Team Description 02/02/2014 Results Only LABORATORY RESULTS Migel Merchant MD [address] [place] [address] 195 [place], [place] [address] (Wo rk) Social History Tobacco Use Types [...] T/B Crossmatch Allo (02/02/2014 6:51 PM CDT) [facility] Method Time Signature Crossmatch Donor:[id number], ?Crossmatch Date:02/02/2014 HISTOTRAC Result (Note) Serum Date [...] Phon e Number [facility] Immunology/Histocompatabil [place], [place] [address] ity [facility] [address], Room 3-580 HISTOTRAC documented in this encounter Visit Diagnoses Not on filedocumented in this encounter Care Teams Board Certified Family Physician Relationship Specialty Start Date End Date Momo Forbes PCP - General Family Practice 01/02/14 [facility] [address] [place] [address] Ingrid Santana, RN Registered Nurse Transplant 02/10/12 documented as of this encounter
--- OUTSIDE RECORDS SUMMARY | 2022-06-30 11:03 | XMS_ITS | Encounter Summary ---
:1950 Author Organization [place] Address [address] [place] [address] Care Team Providers Name Role Phone Ingrid Santana RN Unavailable Unavailable Momo Forbes Primary Care Provider Encounter Details Date Type Department Care Team Description 02/02/2014 Results Only LABORATORY RESULTS Migel Merchant MD 420 [facility] 195 [place], [place] [phone] (Wo rk) Social History Tobacco Use Types [...] II Single Antigen (02/02/2014 6:51 PM CDT) [facility] Method Time Signature SA2 Test [...] Phon e Number [facility] Immunology/Histocompatabil [place], [place] [address] [facility] 500 [facility] [address] Building, Room 3-580 HISTOTRAC documented in this encounter Visit Diagnoses Not on filedocumented in this encounter Care Teams Dragline Mechanic Relationship Specialty Start Date End Date Momo Forbes PCP - General Family Practice 01/02/14 [facility] [address] [place] [address] Ingrid Santana, RN Registered Nurse Transplant 02/10/12 documented as of this encounter
--- OUTSIDE RECORDS SUMMARY | 2022-06-30 11:03 | XMS_ITS | Encounter Summary ---
:1950 Author Organization [place] Address [address] [facility] [place] [address] Care Team Providers Name Role Phone Ingrid Santana RN Unavailable Unavailable Momo Forbes Primary Care Provider Reason for Visit Auth/Cert - Closed Specialty Diagnoses / Procedures Referred By Contact Refer red To Contact Med Surg Diagnoses end stage renal disease dialysis End stage renal failure on dialysis Renal Failure Uu U7a Procedures [facility] [address] [place] [address] Phone: Referral ID Status Reason Start Date Expiration Date Visits Requ ested Visits Authorized [id number] Closed 02/04/2014 08/03/2014 1 1 Encounter Details Date Type Department Care Team Description 02/02/2014 Anesthesia Event [facility] Joseph Ivey MD XXX RESIGNED XXX [address] [place] [address] PeriOp Services Leigh Ann Blank MD 420 [facility] 294 [place], [place] [address] 500 [place] [address] Anesthesia Record Procedure Summary Procedure [...] Hand Inez Mckeon Sara E RN Saima, PRODUCTION SUPERVISOR RETIRED ETT 02/02/14; 1753; Airway 02/02/14 1753 [...] Take 1 tablet by mouth daily. B fudmbrf-A-miwti acid (NEPHROCAPS) 1 MG capsule Take 1 [...] benefits and alternatives discussed with: patient or dairy supplies sales representative. Possibility of blood products discussed. [...] plan were discussed with patient/family or family dairy supplies sales representative. All questions were answered and there was agreement to proceed. History & Physical Review Leigh Ann Blank MD Anesthesiology CA-2 [phone] 2:47 PM February 02, 2014 Diego Guthrie was seen and examined and the medical history was reviewed with him. The anesthetic plan was discussed, risks were explained and questions were answered. He agrees to proceed as discussed. I have reviewed this note and agree with the assessment and plan. Joseph Ivey M.D. Staff Anesthesiologist [phone] 02/02/2014 4:48 PM documented in this encounter [...] Date/Time Associated Diagnosis Comme nts [facility] Routine 02/02/2014 6:19 PM Re [...] passed easily into [facility]. Hyunnarm Nazia DO DE ANESTHESIA documented in this encounter Visit Diagnoses [...] Intra-op documented in this encounter Care Teams Flakeboard Line Tender Relationship Specialty Start Date End Date Momo Forbes PCP - [facility] Practice 01/02/[address] [address] Ingrid Santana, RN Registered Nurse Transplant 02/10/12 documented as of this encounter
--- OUTSIDE RECORDS SUMMARY | 2022-06-30 11:03 | XMS_ITS | Encounter Summary ---
:1950 Author Organization [place] Address [address] [place] [address]. [place] [address] Care Team Providers Name Role Phone Ingrid Santana RN Unavailable Unavailable Momo Forbes Primary Care Provider Reason for Visit Reason Comments Transplant Donor culture results Encounter Details Date Type Department Care Team Description 02/04/2014 Documentation Only The Transplant Gladis Yeboah, Transplant (Donor 2nd Floor, Clinic 2A RN culture results) [address] [phone] Social History Tobacco Use Types Packs/Day Years [...] and urine cultures have been uploaded into [employer]. Notification sent to Dr. Rust and Dr. Hernandes. documented in this encounter Plan of Treatment Not on filedocumented as of this encounter Visit Diagnoses Not on filedocumented in this encounter Care Teams Manager Loan Relationship Specialty Start Date End Date Momo Forbes PCP - General Family Practice 01/02/14 [facility] [address] [place] [address] Ingrid Santana, RN Registered Nurse Transplant 02/10/12 documented as of this encounter
--- OUTSIDE RECORDS SUMMARY | 2022-06-30 11:04 | XMS_ITS | Encounter Summary ---
:1950 Author Organization [place] Address [address] [place] [address] Care Team Providers Name Role Phone Ingrid Santana RN Unavailable Unavailable Momo Forbes Primary Care Provider Encounter Details Date Type Department Care Team Description 01/21/2014 Results Only LABORATORY RESULTS Mingo Dangelo MD 420 [facility] 195 [place] [address] (Wo rk) Social History Tobacco [...] HLA Lukasz Class I Single Antigen (01/21/2014) [facility] gist Method Time Signature SA1 Test [...] Phon e Number [facility] HLA LABORATORY Immunology/Histocompatabil [place], [place] [address] [facility] [address] Building, Room 3-580 HISTOTRAC documented in this encounter Visit Diagnoses Not on filedocumented in this encounter Care Teams Yoga Instructor Relationship Specialty Start Date End Date Momo Forbes PCP - General Family Practice 01/02/14 [facility] [address] [place], [place] [phone] Ingrid Santana, RN Registered Nurse Transplant 02/10/12 documented as of this encounter
--- OUTSIDE RECORDS SUMMARY | 2022-06-30 11:04 | XMS_ITS | Encounter Summary ---
:1950 Author Organization [place] Address [address] [place] [address] Care Team Providers Name Role Phone Ingrid Santana RN Unavailable Unavailable Momo Forbes Primary Care Provider Reason for Visit Reason Onset Date Comments Transplant 02/02/2014 Kidney Offer Encounter Details Date Type Department Care Team Description 02/02/2014 Telephone Transplant Surgery Carmelita Rosario Tran splant (Kidney Clinic RN Offer) 2nd Floor, Clinic [address]A [address] [phone] Social History Tobacco Use Types [...] on filedocumented in this encounter Care Teams Skirt Trimmer Relationship Specialty Start Date End Date Momo Forbes PCP - General Family Practice 01/02/[address] [address] Ingrid Santana, RN Registered Nurse Transplant 02/10/12 documented as of this encounter
--- OUTSIDE RECORDS SUMMARY | 2022-06-30 11:04 | XMS_ITS | Encounter Summary ---
:1950 Author Organization [place] Address [address] [place] [address] Care Team Providers Name Role Phone Ingrid Santana RN Unavailable Unavailable Momo Forbes Primary Care Provider Reason for Visit Reason Onset Date Comments Pre Visit Planning - Done 01/30/2014 EKG: pre op: [age] yo M, here for continued clearance for possib le kidney txp. Encounter Details Date Type Department Care Team Description 01/30/2014 PRE VISIT [facility] Barbara Bradley Pre Visit Planning - [facility] Heart MD Monae Done (EKG: pre op: 63 [address] [place] M, [place] [address] continued clearance 4th Floor, Clinic 4B for possible kidney [facility] [address] txp.) [address] [place] [phone] Social History Tobacco Use Types Packs/Day Years [...] disease documented in this encounter Care Teams Cabbage Salter Relationship Specialty Start Date End Date Momo Forbes PCP - General Family Practice 01/02/14 [facility] [address] [place] [address] Ingrid Santana, RN Registered Nurse Transplant 02/10/12 documented as of this encounter
--- OUTSIDE RECORDS SUMMARY | 2022-06-30 11:04 | XMS_ITS | Encounter Summary ---
:1950 Author Organization [facility] Address [address] [place] [address] Care Team Providers Name Role Phone Ingrid Santana RN Unavailable Unavailable Momo Forbes Primary Care Provider Reason for Visit Auth/Cert - Closed Specialty Diagnoses / Procedures Referred By Contact Refer red To Contact Med Surg Diagnoses end stage renal disease dialysis End stage renal failure on dialysis Renal Failure Uu U7a Procedures TRANSPLANT KIDNEY RECIPIENT DONOR [address] [place] [address] Phone: Referral ID Status Reason Start Date Expiration Date Visits Requ ested Visits Authorized [id number] Closed 02/04/2014 08/03/2014 1 1 Encounter Details Date Type Department Care Team Description 02/02/2014 Surgery [facility] Migel Merchant , Kidney Transplant , PeriOp Services ureteral stent [address] [place] [address] [place] [address] [place], [place] [address] (Wo rk) Surgery Details Date/Time Status Location [...] Physician Discharge Summary Patient ID: Diego Guthrie [id number] 63 year old 1950 Admit date: 02/02/2014 [...] Take 1 tablet by mouth daily. B uinadcm-J-ihtyo acid (NEPHROCAPS) 1 MG capsule Take 1 [...] of these appointments you will meetwith a lactation nurse and meet your regulatory coordinator. Your nurse will also be in communication with your surgeon and lactation nurse as needed. The direct number to the [facility] is [phone]. In the [facility] [...] the hospital. This will be located in [facility] transplant surgery clinic on the second floor.Your transplant surgeon is: Dr. Merchant. You have a ureteral stent in place which needs to be removed in 4-6 weeks. If a school year nanny does not contact you for this, please contact your regulatory coordinator. If you have modesta in place, they will be removed in 3 weeks after operation. Notify your coordinator if you have pain over your kidney, fever greater than 101.5F, or decreased urine output. Notify your coordinator immediately if you are ever unable to take your immunosuppressive medications for any reason. Car Stereo Installer [phone] Diet recommendations post-transplant: Heart healthy dietary habits intermediate card tender (low saturated/trans fat, low sodium). High protein [...] >2. He can be seen by any treating inspector in the outpatient setting for coordination. Continue metoprolol 25 po bid until he is r e-evaluated. We did attempt inpatient REFUGIO guided cardioversion, but the patient developed significant bleeding while on heparin. José Miguel Alvarez M.D. Side Door Man Joseph Quintana MD - 02/08/2014 12:35 PM [...] Dr. Quintana. Sina Robison MD Nephrology Fellow [phone] Attestation: This patient has been seen and [...] Ramires RN - 02/07/2014 2:25 PM CDT Senior Analyst Market Intelligence D: Diego Guthrie 63 year old male POD #5 s/p DDKT for ESRD 2/[address] Diaz note today. Per Dr Diaz, pt will most likely be ready for d/c to home tomorrow and will return to [facility] for 5 days at 0700. Pt [...] him. Pt does not know where the [facility] or transplant clinic is, I told him and he replied I will find it. Pt does not care which [facility] agency will follow him--There are only 2 to choose from, so [facility] [phone]/ --I called and left a message with Estrella Fletcher and I fax'd his records tothem--pt will need start of care approx Thursday 02/15. Pt is new on warfarin and I called his PCP's office and they have INR nurses Tuesday-Tuesday their fax # is [phone] (when N visits are completed --pt will call main clinic # to schedule INR draws). 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 I verified his address and phone #(is his cell) on the facesheet. Pt has not met his OP spiritual care coordinator: Leandro Kahn, yet--I sent Leandro an in basket message today-with plan. A: possible d/c to home Tuesday P: see above-will follow and will call [facility] to confirm they can accept [...] Dr. Quintana. Sina Robison MD Nephrology Fellow [phone] Attestation: This patient has been seen and [...] assistance Medical Decision Making: Medium Subsequent visit 35091 (moderate level decision making) PATO/Fellow/Resident Provider: Adeline [...] Hernandez MD - 02/06/2014 4:25 PM CDT [facility] Cardiology Progress Note I have [...] Dr. Quintana. Sina Robison MD Nephrology Fellow [phone] Attestation: This patient has been seen and [...] Dr. Quintana. Sina Robison MD Nephrology Fellow [phone] Attestation: This patient has been seen and [...] REPLACEMENT ONLY ??? insulin (regular) Stopped (02/05/14 8907) Shiva Kahn RN - 02/05/2014 4:47 PM CDT WORKFORCE CONSULTANT NOTE I met with the patient and his yesterday at [facility] PCU-6B (telemetry unit) to discuss transition from inpatient to outpatient care following kidney translantation. 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 Michael, Joseph Hernandez MD - 02/05/2014 11:16 AM CDT [facility] Cardiology Progress Note I have [...] plan for REFUGIO cardioversion tomorrow, NPO at [place] (orders placed) -- continue heparin and initiate [...] kidney on 02/02/2014. Pt lives alone in [facility] though reports that his girlfriend in in the process of moving in with him. Pt girlfriend, Tete, will be present when pt returns home but she works time study statistician. Pt was on dialysis for 2 1/2 years prior to transplant. Pt works independently but reports that he currently has no income coming in. Pt has primary insurancethrough Medicare and Secondary insurance through [employer]. Pt has no co-pays for his immunosuppressants and a high out of pocket cost for Valcyte, SW to look into grants for pt for Valcyte. I: Met with pt to introduce this scenario writer and explain sw role and services available while inpatient in the hospital. Asked if pt had any questions or concerns and completed an assessment of psychosocialneeds post transplant. Provided education about expectations and requirements post discharge like fol low up in the [facility]. Pt is unsure yet if he [...] arise prior to discharge. Roopa Castro, CECY, PILE FABRIC KNITTER Indu Calixto MD - 02/05/2014 1:50 AM [...] PT - 02/04/2014 4:57 PM CDT 02/04/14 8918 Quick Adds Type of Visit Initial PT Evaluation Behavior Therapist Behavior Therapist Present no Language Tajik Living Environment (R) Lives With alone Living Ar[facility]ements ([facility]) Home Accessibility no concerns Number of Stairs [...] up when pt is available. CECY Kearns, [facility] [phone] phone [phone] pager Joseph Quintana MD - 02/04/2014 11:51 [...] Dr. Quintana. Sina Robison MD Nephrology Fellow [phone] Attestation: This patient has been seen and [...] for this basename: PTHI, in the last 76796 hours IRON STUDIES No results found for this basename: IRON, FEB, IRONSAT, THEE, in the last 96134 hours Imaging: All imaging studies reviewed by [...] or equal to 12.0 mlU/mL. Adeline Diaz [phone] Attestation: The patient has been seen and [...] donor kidney transplant, with stent on 02/02/14. CHIEF CONTROLLER donor. Graft function:uncertain, Cr slightly up. Slow [...] . Medical Decision Making: Medium Subsequent visit 68096 (moderate level decision making) PATO/Fellow/Resident Provider: Caitlin [...] note and orders. Migel Merchant MD, PhD spring former hand Abdominal Organ Transplantation Carmelita Rosario, RN - 02/03/2014 9:38 AM CDT Patient removed from the OS waitlist after donor kidney transplant. OS ID is [id number]. Rafaela Cardona - 02/03/2014 9:17 AM CDT [...] followed general diet. 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 CURRENT NUTRITION ORDERS - [...] DDKT ASSESSED NUTRITION NEEDS: Estimated Energy Needs: 7620-7597+ kcals (25-30+ Kcal/Kg) Justification: maintenance post-transplant Estimated [...] (6- 8 weeks). Rec follow heart-healthy diet intermediate card tender. Implementation Nutrition education: Provided instruction on post-transplant diet with discussion regarding protein sources and high protein needs in acute post-tx phase. Reviewed recommendations to follow low fat/lowsodium diet intermediate card tender and discussed heart healthy diet tips. Discussed [...] adjustment. Rafaela Cardona RD, LD Weekend Coverage [phone] Jose Aguirre MD - 02/03/2014 4:57 AM [...] Doing well postoperatively. Pain: Controlled by Dilaudid LEAN LEADER Diet: NPO tonight Volume Status: Borderline low UOP, continue MIVF, 0.9 % NS 500 cc bolus given for low UOP, CVP not accurate, systolic in 100-110 Recheck hemoglobin and potassium normal. Rest of the plan per primary team. Will continue to follow. Jose Aguirre MD PGY-1.................02/03/2014 Surgery Cross Cover Pager:[phone] documented in this encounter H&P Notes Caitlin [...] 1 tablet by mouth daily. ??? B bjqfcmj-M-ynscl acid (NEPHROCAPS) 1 MG capsule Take 1 [...] Transplant Fellow, Caitlin Morales MD Surgery Cross-Cover Pager:[phone] Addendum: Donor 59 yo F CHIEF CONTROLLER, CVA, h/o HTN, CMV+, EBV+. Kidney bx [...] note and orders. Migel Merchant MD, PhD spring former hand Abdominal Organ Transplantation documented in this encounter Consult Notes Joseph Rodriguez MD - 02/04/2014 11:03 AM CDTAssociated Order(s): CARDIOLOGY IP CONSULT [facility] CARDIOLOGY CONSULT SERVICE INITIAL CONSULT NOTE [...] 1 tablet by mouth daily. ??? 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 José Miguel Alvarez MD Side Door Man Pager: [phone] February 04, 2014 Kaitlynn Leon MD - 02/03/2014 9:30 AM CDT Nephrology Initial Consult February 03, 2014 Diego Guthrie Date of : 1950 Date of Admission:02/02/2014 Primary care provider: Momo Forbes Requesting physician: Migel Merchant MD ASSESSMENT AND RECOMMENDATIONS: 1. 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 We will monitor Induction with Thymo/Cellcept and [...] h/o type 2 Dm, who received DDKT (CHIEF CONTROLLER) on 02/02/2014 donor kidney had severe atherosclerotic [...] ??? Cataract iol, rt/lt both eyes MEDICATIONS: CUSHION COVER INSPECTOR Meds Prior to Admission medications Medication Sig Last Dose Taking? Auth Provider Calcium Carbonate-Vitamin D (CALCIUM + D PO) Take by mouth daily. Reported, Patient lisinopril (PRINIVIL,ZESTRIL) 40 MG tablet Take 40 mg by mouth 2 times daily. Reported, Patient METOPROLOL SUCCINATE PO Take by mouth daily. Reported, Patient aspirin 81 MG tablet Take 1 tablet by mouth daily. Reported, Patient B xkriyxw-I-jjugl acid (NEPHROCAPS) 1 MG capsule Take 1 [...] Intravenous Central line Once ??? HYDROmorphone Intravenous LEAN LEADER Infusion Meds ??? 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 Alvin Diego Cardiovascular Disease Fellow [phone] Patient seen and examined by me with [...] Cullen MD, PhD Jarad Cullen MD, PhD [phone] documented in this encounter Nursing Notes Gretta [...] Individualization/Patient-Specific Goal (Adult,OB,Behavioral The patient and/or their international representative will achieve their patient-specific goals related [...] Card updated. Report called to Saima in [facility]. Left facility accompanied by s.o at 1600. Plan of Care - Amanda Hernandez RN - 02/08/2014 2:13 PM CDT Problem: IP GENERAL POC-ADULT,OB,BEHAVIORAL FVCPM Goal: Individualization/Patient-Specific Goal (Adult,OB,Behavioral The patient and/or their international representative will achieve their patient-specific goals related [...] Individualization/Patient-Specific Goal (Adult,OB,Behavioral The patient and/or their international representative will achieve their patient-specific goals related [...] Individualization/Patient-Specific Goal (Adult,OB,Behavioral The patient and/or their international representative will achieve their patient-specific goals related [...] weeks. Inez Luevano MS, RD, LD Pager [phone] Pharmacy-Immunosuppression Monitoring - Em Vasquez [facility] - 02/07/2014 9:06 AM [...] will continue to follow. Em Vasquez, Pharm.D., [facility] Pager [phone] Plan of Care - Annmarie Colby RN - 02/07/2014 5:11 AM CDT Problem: IP GENERAL POC-ADULT,OB,BEHAVIORAL FVCPM Goal: Individualization/Patient-Specific Goal (Adult,OB,Behavioral The patient and/or their international representative will achieve their patient-specific goals related [...] Individualization/Patient-Specific Goal (Adult,OB,Behavioral The patient and/or their international representative will achieve their patient-specific goals related [...] increased fluid intake, urine color is becoming methods specialist( tea color/bloody- >dark sy/tea color). Incisional pain [...] Physical Therapy Goals The patient and/or their international representative will achieve their patient-specific goals related [...] Physical Therapy Goals The patient and/or their international representative will achieve their patient-specific goals related [...] Individualization/Patient-Specific Goal (Adult,OB,Behavioral The patient and/or their international representative will achieve their patient-specific goals related [...] 130 output overnight. Plan for cardioversion and REFGUIO today, Resident Dr. Adeline Lutz here to [...] Individualization/Patient-Specific Goal (Adult,OB,Behavioral The patient and/or their international representative will achieve their patient-specific goals related [...] Physical Therapy Goals The patient and/or their international representative will achieve their patient-specific goals related [...] this time. Pharmacy - Cayetano Olivera, [facility] - 02/05/2014 12:26 PM CDT Visited 02/05/2014 in hospital room prior to discharge to review medications, review discharge process and review specialty pharmacy program. Med Review: Reviewed patient's medications and medical conditions. Patient would like to use [facility] to manage all medications. Medcard: [...] Specialty Pharmacy review: Discussed the benefits of [facility] and Diego has enrolled. Also gave him supplies (blood pressure cuff, thermometer, and pill box) Other concerns: No other concerns at this time. No further questions for this pharmacist. Inez Cox, Student Pharmacist [employer] Truck Driver [facility] [address] [place] [id number] Cayetano Olivera, Pharmacist [facility] [phone] Pharmacy-Anticoagulation Service - Teresa Wright [facility] - 02/05/2014 11:29 AM CDT [...] Individualization/Patient-Specific Goal (Adult,OB,Behavioral The patient and/or their international representative will achieve their patient-specific goals related [...] melonie hard time making full sentences. When scenario writer came on shift at 8pm patient [...] Individualization/Patient-Specific Goal (Adult,OB,Behavioral The patient and/or their international representative will achieve their patient-specific goals related [...] Physical Therapy Goals The patient and/or their international representative will achieve their patient-specific goals related [...] by friend. Pt transferred to chair, VSS, parts facilitator on, oriented to room. Pharmacy-Admission Medication History - Teresa Wright [facility] - 02/04/2014 11:54 AM CDT Admission medication history interview status for the 02/02/2014 admission is complete. See [facility] admission navigator for allergy information, prior to admission medications and immunization status. Medication history interview sources (including written lists, pill bottles, clinic record):Patient Medication history source reliability:Good Primary pharmacy:[facility] Pharmacy phone number: [phone] Changes made to CUSHION COVER INSPECTOR medication list (reason) Added: Vitamin D 1,000 [...] at Unknown time Yes Reported, Patient B xamcqps-H-fiyod acid (NEPHROCAPS) 1 MG capsule Take 1 [...] Individualization/Patient-Specific Goal (Adult,OB,Behavioral The patient and/or their international representative will achieve their patient-specific goals related [...] 45 minutes and remains in A-fib via doorperson or luggage porter. Repeat EKG around 1000 showed continued Afibl. [...] Physical Therapy Goals The patient and/or their international representative will achieve their patient-specific goals related to the plan of care. The patient-specific goals include: PT 7A: HOLD for AM per RN - pt with a-fib this morning. Plan of Care - Alisson Diane RN - 02/04/2014 6:45 AM CDT Problem: IP GENERAL POC-ADULT,OB,BEHAVIORAL FVCPM Goal: Individualization/Patient-Specific Goal (Adult,OB,Behavioral The patient and/or their international representative will achieve their patient-specific goals related [...] Individualization/Patient-Specific Goal (Adult,OB,Behavioral The patient and/or their international representative will achieve their patient-specific goals related [...] yellow. Pharmacy-Transplant Note - Davina Schuster [facility] - 02/03/2014 4:28 PM [...] Individualization/Patient-Specific Goal (Adult,OB,Behavioral The patient and/or their international representative will achieve their patient-specific goals related to the plan of care. The patient-specific goals include: 1. Pt will remain hemodynamically stable 2. Pt will have adequate urine output 3. Pt will be free of falls. RD Patient will verbalize understanding of 3 important aspects of post-transplant diet guidelines. PO intake >50% meals TID once diet adv. Report taken from [facility] on 6B; patient transferred to from 6B via wheelchair around 1500. Patientsettled into room, oriented to floor/room and call light. VS taken. Orders released. Continue ordersas written and notify MD with any concerns. Plan of Care - Sofie Christianson RN - 02/03/2014 2:59 PM CDT Problem: IP GENERAL POC-ADULT,OB,BEHAVIORAL FVCPM Goal: Plan of Care Review (Adult,OB,Behavioral) The patient and/or their international representative will communicate an understanding of their [...] algorithm 2, 1 unit now. Pt still txcystpsu8Q NC to maintain sats above 90 % [...] Individualization/Patient-Specific Goal (Adult,OB,Behavioral The patient and/or their international representative will achieve their patient-specific goals related [...] Intermittent sharp R lower abd pain. Dilaudid LEAN LEADER encouraged, increased to 0.2//.2. R lower abd [...] 0200 made 20cc/hr, at 0300 made 30cc/hr. [place]/red tinged urine. MIVF @ 125/hr. VSS. HR 70s, BPs 100s-120s/60s. No new orders at this time. Will continue to monitor. Plan of Care - Tasia Andrade RN - 02/03/2014 12:00 AM CDT Pt arrived to 6B from PACU, s/p DDKT. A&O x3-4. VSS. [place]/red urine output. Small amt drainage on abd [...] to Type 2 Diabetes. The patient received [facility] offer for a Donor CHIEF CONTROLLER (expanded criteria donor) kidney transplant. After discussing [...] The UNOS number of the donor is [id number]. The crossmatch was done prospectively; and the [...] reconstruction. FACULTY SURGEON: Migel Merchant M.D., Ph.D. FELLOW/DOUGH MACHINE OPERATOR SURGEON: Caitlin Owens MD fellow ANESTHESIA: None VERIFICATION: Prior to incision, I verified the donor ABO and recipient ABO. After the donor organ arrived to the operating room and prior to anastamosis, I visually verified that the donor identification, blood type, and other vital data were compatible with the recipient. FINDINGS: Donor type: CHIEF CONTROLLER (expanded criteria donor) Organ: kidney Graft Injury: [...] Individualization/Patient-Specific Goal (Adult,OB,Behavioral The patient and/or their international representative will achieve their patient-specific goals related [...] Individualization/Patient-Specific Goal (Adult,OB,Behavioral The patient and/or their international representative will achieve their patient-specific goals related [...] Not Provided [facility] Last Dose [facility] Tacrolimus 10.0 5.0 - [facility] Level 15.0 ug/L [facility] Comment: Tacrolimus Reference Range Kidney [...] [facility]/ZIP Code Phon e Number [facility] [address] LABS (ABNORMAL) INR (02/08/2014 6:42 AM CDT) P athologist Signature INR 1.28 (H) 0.86 - 1.14 [facility] Specimen Anatomical Collection Method Collection Time Receive d Time (Source) Location / / Volume Laterality Blood specimen 02/08/2014 6:42 AM 014 6:43 (specimen) CDT AM CDT Omaira Chavez PA-C LAB - BLOOD ORDERABLES Performing Organization Address City/State/ZIP Code Phon e Number [facility] [address] LABS (ABNORMAL) Basic metabolic panel (02/08/2014 6:42 AM CDT) Patholo gist Method Time Signature Sodium 144 133 - 144 [facility] mmol/L [facility] Potassium 3.9 3.4 - 5.3 [facility] mmol/L [facility] Chloride 110 (H) 94 - 109 [facility] mmol/L [facility] Carbon Dioxide 25 20 - 32 [facility] mmol/L [facility] Anion Gap 8 6 - 17 [facility] mmol/L [facility] Glucose 144 (H) 60 - 99 [facility] mg/dL [facility] Urea Nitrogen 66 (H) 7 - 30 [facility] mg/dL [facility] Creatinine 2.38 (H) 0.66 - [facility] 1.25 mg/dL [facility] GFR Estimate 28 (L) >60 [facility] mL/min/1.7 [place] m2 CAMPUS LABS GFR Estimate If 34 (L) >60 [facility] [place] mL/min/1.7 [place] [address] CAMPUS LABS Calcium 9.4 8.5 - 10.4 [facility] mg/dL [facility] Specimen Anatomical Collection Method Collection Time Receive d Time (Source) Location / / Volume Laterality Blood specimen 02/08/2014 6:42 AM 014 6:43 (specimen) CDT AM CDT Omaira Chavez PA-C LAB - BLOOD ORDERABLES Performing Organization Address City/[facility]/ZIP Code Phon e Number [address] LABS Phosphorus (02/08/2014 6:42 AM CDT) P athologist Signature Phosphorus 2.5 2.5 - 4.5 [facility] mg/dL [place] LABS Specimen Anatomical Collection Method Collection Time Receive d Time (Source) Location / / Volume Laterality Blood specimen 02/08/2014 6:42 AM 014 6:43 (specimen) CDT AM CDT Omaira Chavez PA-C LAB - BLOOD ORDERABLES Performing Organization Address City/[facility]/ZIP Code Phon e Number [address] LABS Magnesium (02/08/2014 6:42 AM CDT) athologist Signature Magnesium 2.2 1.6 - 2.3 [facility] mg/dL [place] LABS Specimen Anatomical Collection Method Collection Time Receive d Time (Source) Location / / Volume Laterality Blood specimen 02/08/2014 6:42 AM 014 6:43 (specimen) CDT AM CDT Omaira Chavez PA-C LAB - BLOOD ORDERABLES Performing Organization Address City/[facility]/ZIP Code Phon e Number [address] LABS (ABNORMAL) CBC with platelets differential (02/08/2014 6:42 AM CDT) Patholo gist Method Time Signature WBC 4.8 4.0 - [facility] 11.0 [place] 10e9/L [place] LABS RBC Count 2.56 (L) 4.4 - 5.9 [facility] 10e12/L [facility] LABS Hemoglobin 7.8 (L) 13.3 - [facility] 17.7 g/dL [facility] LABS Hematocrit 23.5 (L) 40.0 - [facility] 53.0 % [facility] LABS MCV 92 78 - 100 [facility] fl [facility] LABS MCH 30.5 26.5 - [facility] 33.0 pg [facility] [place] [facility] MCHC 33.2 31.5 - [facility] 36.5 g/dL [facility] LABS RDW 14.5 10.0 - [facility] 15.0 % [facility] LABS Platelet Count 70 (L) 150 - 450 [facility] 10e9/L [facility] LABS Diff Method Automated [facility] Method [facility] LABS % Neutrophils 86.3 % [facility] LABS % Lymphocytes 3.1 % [facility] LABS % Monocytes 9.4 % [facility] LABS % Eosinophils 1.0 % [facility] LABS % Basophils 0.0 % [facility] % Immature 0.2 % [facility] Granulocytes [facility] LABS Absolute 4.1 1.6 - 8.3 [facility] Neutrophil 10e9/L [facility] LABS Absolute 0.2 (L) 0.8 - 5.3 [facility] Lymphocytes 10e9/L [facility] LABS Absolute 0.5 0.0 - 1.3 [facility] Monocytes 10e9/L [facility] LABS Absolute 0.1 0.0 - 0.7 [facility] Eosinophils 10e9/L [facility] LABS Absolute 0.0 0.0 - 0.2 [facility] Basophils 10e9/L [facility] LABS Abs Immature 0.0 0 - 0.4 [facility] Granulocytes 10e9/L [facility] LABS Specimen Anatomical Collection Method Collection Time Receive d Time (Source) Location / / Volume Laterality Blood specimen 02/08/2014 6:42 AM 014 6:43 (specimen) CDT AM CDT Omaira Chavez PA-C LAB - BLOOD ORDERABLES Performing Organization Address City/State/ZIP Code Phon e Number [facility] [address] [place], [place] [phone] [place] [address] LABS (ABNORMAL) Glucose by meter (02/07/2014 10:18 PM CDT) P athologist Signature Glucose 233 (H) 60 - 99 POINT OF CARE mg/dL TEST, GLUCOSE Specimen Anatomical Collection Method Collection Time Receive d Time (Source) Location / / Volume Laterality 02/07/2014 10:18 02/07/2014 PM CDT 10:20 PM CDT Migel Merchant MD LAB - BEAKER POCT Performing Organization Address [facility] Phon e Number FV POINT [...] LAB - BEAKER POCT Performing Organization Address [facility] Phon e Number FV POINT [...] LAB - BEAJ POCT Performing Organization Address [facility] Phon e Number FV POINT [...] LAB - BEAJ POCT Performing Organization Address [facility] Phon e Number FV POINT [...] 7:50 CDT AM CDT Migel Merchant MD [facility] POCT Performing [...] INR 1.25 (H) 0.86 - 1.14 [facility] LABS Specimen Anatomical Collection Method Collection Time Receive d Time (Source) Location / / Volume Laterality Blood specimen 02/07/2014 4:23 AM 014 4:24 (specimen) CDT AM CDT Omaira Chavez PA-C LAB - BLOOD ORDERABLES Performing Organization Address City/State/ZIP Code Phon e Number [phone] [place] [address] LABS (ABNORMAL) Basic metabolic panel (02/07/2014 4:23 AM CDT) [facility] gist Method Time Signature Sodium 143 133 - 144 [facility] mmol/L [facility] LABS Potassium 4.1 3.4 - 5.3 [facility] mmol/L [facility] LABS Chloride 109 94 - 109 [facility] mmol/L [facility] LABS Carbon Dioxide 24 20 - 32 [facility] mmol/L [facility] LABS Anion Gap 10 6 - 17 [facility] mmol/L [facility] LABS Glucose 185 (H) 60 - 99 [facility] mg/dL [facility] LABS Urea Nitrogen 77 (H) 7 - 30 [facility] mg/dL [facility] LABS Creatinine 3.02 (H) 0.66 - [facility] 1.25 mg/dL [facility] LABS GFR Estimate 21 (L) >60 [facility] mL/min/1.7 [place] m2 CAMPUS LABS GFR Estimate If 26 (L) >60 [facility] Black mL/min/1.7 [place] [address] CAMPUS LABS Calcium 9.3 8.5 - 10.4 [facility] mg/dL [facility] LABS Specimen Anatomical Collection Method Collection Time Receive d Time (Source) Location / / Volume Laterality Blood specimen 02/07/2014 4:23 AM 014 4:24 (specimen) CDT AM CDT Omaira Chavez PA-C LAB - BLOOD ORDERABLES Performing Organization Address City/[facility]/ZIP Code Phon e Number [address] LABS Phosphorus (02/07/2014 4:23 AM CDT) P athologist Signature Phosphorus 3.5 2.5 - 4.5 [facility] mg/dL [place] LABS Specimen Anatomical Collection Method Collection Time Receive d Time (Source) Location / / Volume Laterality Blood specimen 02/07/2014 4:23 AM 014 4:24 (specimen) CDT AM CDT Omaira Chavez PA-C LAB - BLOOD ORDERABLES Performing Organization Address City/State/ZIP Code Phon e Number [address] LABS Magnesium (02/07/2014 4:23 AM CDT) P athologist Signature Magnesium 2.1 1.6 - 2.3 [facility] mg/dL [place] LABS Specimen Anatomical Collection Method Collection Time Receive d Time (Source) Location / / Volume Laterality Blood specimen 02/07/2014 4:23 AM 014 4:24 (specimen) CDT AM CDT Omaira Chavez PA-C LAB - BLOOD ORDERABLES Performing Organization Address City/State/ZIP Code Phon e Number [address] LABS (ABNORMAL) CBC with platelets differential (02/07/2014 4:23 AM CDT) Patholo gist Method Time Signature WBC 2.7 (L) 4.0 - [facility] 11.0 [place] 10e9/L [place] LABS RBC Count 2.80 (L) 4.4 - 5.9 [facility] 10e12/L [facility] LABS Hemoglobin 8.5 (L) 13.3 - [facility] 17.7 g/dL [facility] LABS Hematocrit 25.8 (L) 40.0 - [facility] 53.0 % [facility] LABS MCV 92 78 - 100 [facility] fl [facility] LABS MCH 30.4 26.5 - [facility] 33.0 pg [facility] LABS MCHC 32.9 31.5 - [facility] 36.5 g/dL [facility] LABS RDW 14.5 10.0 - [facility] 15.0 % [facility] LABS Platelet Count 77 (L) 150 - 450 [facility] 10e9/L [facility] LABS Diff Method Automated [facility] Method [facility] LABS % Neutrophils 87.5 % [facility] % Lymphocytes 3.8 % [facility] % Monocytes 8.7 % [facility] % Eosinophils 0.0 % [facility] % Basophils 0.0 % [facility] % Immature 0.0 % [facility] Granulocytes [facility] LABS Absolute 2.3 1.6 - 8.3 [facility] Neutrophil 10e9/L [facility] LABS Absolute 0.1 (L) 0.8 - 5.3 [facility] Lymphocytes 10e9/L [facility] LABS Absolute 0.2 0.0 - 1.3 [facility] Monocytes 10e9/L [facility] LABS Absolute 0.0 0.0 - 0.7 [facility] Eosinophils 10e9/L [facility] LABS Absolute 0.0 0.0 - 0.2 [facility] Basophils 10e9/L [facility] LABS Abs Immature 0.0 0 - 0.4 [facility] Granulocytes 10e9/L [facility] LABS Specimen Anatomical Collection Method Collection Time Receive d Time (Source) Location / / Volume Laterality Blood specimen 02/07/2014 4:23 AM 014 4:24 (specimen) CDT AM CDT Omaira Chavez PA-C LAB - BLOOD ORDERABLES Performing Organization Address City/State/ZIP Code Phon e Number [phone] [place] [address] LABS (ABNORMAL) Hemoglobin A1c (02/07/2014 4:23 AM CDT) Analysis Performed At Patho logist Time Signature Hemoglobin A1C 6.1 (H) 4.3 - 6.0 [facility] % [facility] LABS Specimen Anatomical Collection Method Collection Time Receive d Time (Source) Location / / Volume Laterality Blood specimen 02/07/2014 4:23 AM 014 4:24 (specimen) CDT AM CDT Omaira Chavez PA-C LAB - BLOOD ORDERABLES Performing Organization Address City/State/ZIP Code Phon e Number [address] [address] [facility] LABS (ABNORMAL) Glucose by meter (02/06/2014 [...] Signature Hemoglobin 8.8 (L) 13.3 - 17.7 [facility] g/dL [place] LABS Specimen Anatomical Collection Method Collection Time Receive d Time (Source) Location / / Volume Laterality Blood specimen 02/06/2014 4:59 PM 014 5:12 (specimen) CDT PM CDT Omaira Chavez PA-C LAB - BLOOD ORDERABLES Performing Organization Address City/[facility]/ZIP Code Phon e Number [facility] [address] LABS (ABNORMAL) Glucose by meter (02/06/2014 12:01 PM CDT) athologist Signature Glucose 181 (H) 60 - 99 POINT OF CARE mg/dL TEST, GLUCOSE Specimen Anatomical Collection Method Collection Time Receive d Time (Source) Location / / Volume Laterality 02/06/2014 12:01 02/06/2014 PM CDT 12:05 PM CDT Migel Merchant MD LAB - BEAKER POCT Performing Organization Address City/[facility]/ZIP Code Phon e Number FV POINT OF CARE TEST, GLUCOSE POINT OF CARE TEST, GLUCOSE (ABNORMAL) Partial thromboplastin time (02/06/2014 5:57 AM CDT) athologist Signature PTT 154 (HH) 22 - 37 sec [facility] LABS Comment: Critical Value called to and read back Whitney HODGSON 6B RN AT 0642. PW Specimen Anatomical Collection Method Collection Time Receive d Time (Source) Location / / Volume Laterality 02/06/2014 5:57 AM 4 6:03 CDT AM CDT Adeline Diaz MD LAB - BLOOD ORDERABLES Performing Organization Address City/[facility]/ZIP Code Phon e Number [facility] [address] [place], [place] [phone] [place] [address] LABS Heparin Xa (10a) Level (02/06/2014 5:57 AM CDT) athologist Signature Heparin 10A 0.92 IU/mL [facility] LABS Comment: Therapeutic Range: ?? [...] Performing Organization Address City/[facility] Code Phon e Number [facility] [address] LABS (ABNORMAL) INR (02/06/2014 5:57 AM CDT) P athologist Signature INR 1.32 (H) 0.86 - 1.14 [facility] LABS Specimen Anatomical Collection Method Collection Time Receive d Time (Source) Location / / Volume Laterality Blood specimen 02/06/2014 5:57 AM 014 6:03 (specimen) CDT AM CDT Omaira Chavez PA-C LAB - BLOOD ORDERABLES Performing Organization Address City/State/ZIP Code Phon e Number [facility] [address] LABS (ABNORMAL) Basic metabolic panel (02/06/2014 5:57 AM CDT) Patholo gist Method Time Signature Sodium 142 133 - 144 [facility] mmol/L [facility] LABS Potassium 4.7 3.4 - 5.3 [facility] mmol/L [facility] LABS Chloride 106 94 - 109 [facility] mmol/L [facility] LABS Carbon Dioxide 28 20 - 32 [facility] mmol/L [facility] LABS Anion Gap 8 6 - 17 [facility] mmol/L [facility] LABS Glucose 196 (H) 60 - 99 [facility] mg/dL [facility] LABS Urea Nitrogen 71 (H) 7 - 30 [facility] mg/dL [facility] LABS Creatinine 3.96 (H) 0.66 - [facility] 1.25 mg/dL [facility] [place] [facility] GFR Estimate 15 (L) >60 [facility] mL/min/1.7 [place] m2 CAMPUS LABS GFR Estimate If 19 (L) >60 [facility] Black mL/min/1.7 [place] m2 CAMPUS LABS Calcium 9.4 8.5 - 10.4 [facility] mg/dL [facility] LABS Specimen Anatomical Collection Method Collection Time Receive d Time (Source) Location / / Volume Laterality Blood specimen 02/06/2014 5:57 AM 014 6:03 (specimen) CDT AM CDT Omaira Chavez PA-C LAB - BLOOD ORDERABLES Performing Organization Address City/State/ZIP Code Phon e Number [facility] [address] LABS Phosphorus (02/06/2014 5:57 AM CDT) P athologist Signature Phosphorus 4.5 2.5 - 4.5 [facility] mg/dL [place] LABS Specimen Anatomical Collection Method Collection Time Receive d Time (Source) Location / / Volume Laterality Blood specimen 02/06/2014 5:57 AM 014 6:03 (specimen) CDT AM CDT Omaira Chavez PA-C LAB - BLOOD ORDERABLES Performing Organization Address City/State/ZIP Code Phon e Number [facility] [address] LABS Magnesium (02/06/2014 5:57 AM CDT) P athologist Signature Magnesium 1.9 1.6 - 2.3 [facility] mg/dL [place] LABS Specimen Anatomical Collection Method Collection Time Receive d Time (Source) Location / / Volume Laterality Blood specimen 02/06/2014 5:57 AM 014 6:03 (specimen) CDT AM CDT Omaira Chavez PA-C LAB - BLOOD ORDERABLES Performing Organization Address City/State/ZIP Code Phon e Number [facility] [address] [place], [place] [phone] [place] [address] LABS (ABNORMAL) CBC with platelets differential (02/06/2014 5:57 AM CDT) Patholo gist Method Time Signature WBC 5.1 4.0 - [facility] 11.0 [facility] 10e9/L [place] LABS RBC Count 3.13 (L) 4.4 - 5.9 [facility] 10e12/L [facility] LABS Hemoglobin 9.6 (L) 13.3 - [facility] 17.7 g/dL [facility] LABS Hematocrit 29.0 (L) 40.0 - [facility] 53.0 % [facility] LABS MCV 93 78 - 100 [facility] fl [facility] LABS MCH 30.7 26.5 - [facility] 33.0 pg [facility] LABS MCHC 33.1 31.5 - [facility] 36.5 g/dL [facility] LABS RDW 14.5 10.0 - [facility] 15.0 % [facility] LABS Platelet Count 85 (L) 150 - 450 [facility] 10e9/L [facility] LABS Diff Method Automated [facility] Method [facility] LABS % Neutrophils 86.0 % [facility] LABS % Lymphocytes 5.1 % [facility] LABS % Monocytes 8.7 % [facility] LABS % Eosinophils 0.0 % [facility] % Basophils 0.0 % [facility] LABS % Immature 0.2 % [facility] Granulocytes [facility] LABS Absolute 4.4 1.6 - 8.3 [facility] Neutrophil 10e9/L [facility] LABS Absolute 0.3 (L) 0.8 - 5.3 [facility] Lymphocytes 10e9/L [facility] LABS Absolute 0.4 0.0 - 1.3 [facility] Monocytes 10e9/L [facility] LABS Absolute 0.0 0.0 - 0.7 [facility] Eosinophils 10e9/L [facility] LABS Absolute 0.0 0.0 - 0.2 [facility] Basophils 10e9/L [facility] LABS Abs Immature 0.0 0 - 0.4 [facility] Granulocytes 10e9/L [facility] LABS Specimen Anatomical Collection Method Collection Time Receive d Time (Source) Location / / Volume Laterality Blood specimen 02/06/2014 5:57 AM 014 6:03 (specimen) CDT AM CDT Omaira Chavez PA-C LAB - BLOOD ORDERABLES Performing Organization Address City/State/ZIP Code Phon e Number [facility] [address] [place] [address] [facility] LABS (ABNORMAL) Lipid panel reflex to direct LDL (02/06/2014 5:57 AM CDT) P athologist Signature Cholesterol 126 <200 mg/dL [facility] LABS Comment: LDL Cholesterol is the primary guide to therapy. The NCEP recommends further evaluation of: patients with cholesterol greater than 200 mg/dL if additional risk facto rs are present, cholesterol greater than 240 mg/dL, triglycerides greater than 1 50 mg/dL, or HDL less than 40 mg/dL. Triglycerides 100 0 - 150 mg/dL [facility] [place] LABS HDL Cholesterol 35 (L) >40 mg/dL [facility] LABS LDL Cholesterol Calculated 71 0 - 129 mg/dL [facility] LABS Comment: LDL Cholesterol is the primary guide to therapy: LDL-cholesterol goal in high risk patients is <100 mg/dL and in very high risk patients is <70 mg/dL. VLDL-Cholesterol 20 0 - 30 mg/dL [facility] Cholesterol/HDL Ratio 3.6 0.0 - 5.0 [facility] Specimen Anatomical Collection Method Collection Time Receive d Time (Source) Location / / Volume Laterality Blood specimen 02/06/2014 5:57 AM 014 6:03 (specimen) CDT AM CDT Omaira Chavez PA-C LAB - BLOOD ORDERABLES Performing Organization Address City/State/ZIP Code Phon e Number [facility] [address] LABS Tacrolimus level (02/06/2014 5:57 AM CDT) Patholo gist Method Time Signature Tacrolimus S Negative [facility] Last Dose [facility] LABS Tacrolimus 12.7 5.0 - [facility] Level 15.0 ug/L [facility] LABS Comment: Tacrolimus Reference Range Kidney [...] Phon e Number [facility] [address] [place] [address] [facility] LABS (ABNORMAL) Glucose by meter (02/06/2014 [...] (L) 13.3 - [facility] 17.7 g/dL [place] LABS Specimen Anatomical Collection Method Collection Time Receive d Time (Source) Location / / Volume Laterality Blood specimen 02/06/2014 1:02 AM 014 1:11 (specimen) CDT AM CDT Deysi Alicea MD LAB - BLOOD ORDERABLES Performing Organization Address City/State/ZIP Code Phon e Number [facility] [address] [place], [place] [phone] [place] [address] LABS (ABNORMAL) Glucose by meter (02/05/2014 10:23 PM CDT) P athologist Signature Glucose 254 (H) 60 - 99 POINT OF CARE mg/dL TEST, GLUCOSE Specimen Anatomical Collection Method Collection Time Receive d Time (Source) Location / / Volume Laterality 02/05/2014 10:23 02/05/2014 PM CDT 10:25 PM CDT Migel Merchant MD LAB - BEAKER POCT Performing Organization Address City/[facility] Code Phon e Number FV POINT OF CARE TEST, GLUCOSE POINT OF CARE TEST, GLUCOSE Heparin 10a Level (02/05/2014 7:32 PM CDT) P athologist Signature Heparin 10A 0.64 IU/mL [facility] LABS Comment: Therapeutic Range: ?? [...] Address City/State/ZIP Code Phon e Number [address] [address] [facility] LABS (ABNORMAL) Glucose by meter (02/05/2014 [...] INR 1.24 (H) 0.86 - 1.14 [facility] LABS Specimen Anatomical Collection Method Collection Time Receive d Time (Source) Location / / Volume Laterality Blood specimen 02/05/2014 12:04 4 (specimen) PM CDT 12:10 PM CDT Teresa Wright [facility] LAB - BLOOD ORDERABLES Performing Organization Address City/[facility]/ZIP Code Phon e Number [address] LABS (ABNORMAL) CBC with platelets (02/05/2014 12:04 PM CDT) Patholo gist Method Time Signature WBC 7.4 4.0 - 11.0 [facility] 10e9/L [facility] LABS RBC Count 3.31 (L) 4.4 - 5.9 [facility] 10e12/L [facility] LABS Hemoglobin 10.3 (L) 13.3 - [facility] 17.7 g/dL [facility] LABS Hematocrit 31.0 (L) 40.0 - [facility] 53.0 % [facility] LABS MCV 94 78 - 100 [facility] fl [facility] LABS MCH 31.1 26.5 - [facility] 33.0 pg [facility] LABS MCHC 33.2 31.5 - [facility] 36.5 g/dL [facility] LABS RDW 14.7 10.0 - [facility] 15.0 % [facility] LABS Platelet Count 91 (L) 150 - 450 [facility] 10e9/L [facility] LABS Specimen Anatomical Collection Method Collection Time Receive d Time (Source) Location / / Volume Laterality Blood specimen 02/05/2014 12:04 4 (specimen) PM CDT 12:10 PM CDT Omaira Chavez PA-C LAB - BLOOD ORDERABLES Performing Organization Address City/[facility]/ZIP Code Phon e Number [facility] [place] [address] [address] [facility] LABS (ABNORMAL) Glucose by meter (02/05/2014 11:25 AM CDT) P athologist Signature Glucose 190 (H) 60 - 99 POINT OF CARE mg/dL TEST, GLUCOSE Specimen Anatomical Collection Method Collection Time Receive d Time (Source) Location / / Volume Laterality 02/05/2014 11:25 02/05/2014 AM CDT 11:30 AM CDT Migel Merchant MD LAB - BEAKER POCT Performing Organization Address City/[facility]/ZIP Code Phon e Number FV POINT OF [...] - BEAJ POCT Performing Organization Address City/[facility]/ZIP Code Phon e Number FV POINT OF [...] - BEAJ POCT Performing Organization Address City/[facility]/ZIP Code Phon e Number FV POINT OF [...] 133 - 144 [facility] mmol/L [facility] LABS Potassium 4.3 3.4 - 5.3 [facility] mmol/L [facility] LABS Chloride 107 94 - 109 [facility] mmol/L [facility] LABS Carbon Dioxide 25 20 - 32 [facility] mmol/L [facility] LABS Anion Gap 10 6 - 17 [facility] mmol/L [facility] LABS Glucose 123 (H) 60 - 99 [facility] mg/dL [facility] LABS Urea Nitrogen 66 (H) 7 - 30 [facility] mg/dL [facility] LABS Creatinine 4.77 (H) 0.66 - [facility] 1.25 mg/dL [facility] LABS GFR Estimate 12 (L) >60 [facility] mL/min/1.7 [place] [facility] LABS GFR Estimate If 15 (L) >60 [facility] Black mL/min/1.7 [place] [facility] LABS Calcium 9.4 8.5 - 10.4 [facility] mg/dL [facility] LABS Specimen Anatomical Collection Method Collection Time Receive d Time (Source) Location / / Volume Laterality Blood specimen 02/05/2014 7:02 AM 014 7:05 (specimen) CDT AM CDT Omaira Chavez PA-C LAB - BLOOD ORDERABLES Performing Organization Address City/[facility]/ZIP Code Phon e Number [address] LABS (ABNORMAL) Phosphorus (02/05/2014 7:02 AM [...] [facility]/ZIP Code Phon e Number [address] [facility] Magnesium (02/05/2014 7:02 AM CDT) P athologist Signature Magnesium 2.0 1.6 - 2.3 [facility] mg/dL [place] LABS Specimen Anatomical Collection Method Collection Time Receive d Time (Source) Location / / Volume Laterality Blood specimen 02/05/2014 7:02 AM 014 7:05 (specimen) CDT AM CDT Omaira Chavez PA-C LAB - BLOOD ORDERABLES Performing Organization Address City/State/ZIP Code Phon e Number [facility] [address] [place] [address] [facility] LABS (ABNORMAL) CBC with platelets differential (02/05/2014 7:02 AM CDT) Patholo gist Method Time Signature WBC 8.9 4.0 - [facility] 11.0 [facility] 10e9/L [place] LABS RBC Count 3.20 (L) 4.4 - 5.9 [facility] 10e12/L [facility] LABS Hemoglobin 9.7 (L) 13.3 - [facility] 17.7 g/dL [facility] LABS Hematocrit 30.0 (L) 40.0 - [facility] 53.0 % [facility] LABS MCV 94 78 - 100 [facility] fl [facility] LABS MCH 30.3 26.5 - [facility] 33.0 pg [facility] LABS MCHC 32.3 31.5 - [facility] 36.5 g/dL [facility] LABS RDW 14.6 10.0 - [facility] 15.0 % [facility] LABS Platelet Count 96 (L) 150 - 450 [facility] 10e9/L [facility] LABS Diff Method Automated [facility] [facility] % Neutrophils 90.2 % [facility] % Lymphocytes 4.4 % [facility] % Monocytes 5.2 % [facility] % Eosinophils 0.0 % [facility] % Basophils 0.0 % [facility] % Immature 0.2 % [facility] Granulocytes [facility] Absolute 8.1 1.6 - 8.3 [facility] Neutrophil 10e9/L [facility] Absolute 0.4 (L) 0.8 - 5.3 [facility] Lymphocytes 10e9/L [facility] Absolute 0.5 0.0 - 1.3 [facility] Monocytes 10e9/L [facility] Absolute 0.0 0.0 - 0.7 [facility] Eosinophils 10e9/L [facility] Absolute 0.0 0.0 - 0.2 [facility] Basophils 10e9/L [facility] Abs Immature 0.0 0 - 0.4 [facility] Granulocytes 10e9/L [facility] Specimen Anatomical Collection Method Collection Time Receive d Time (Source) Location / / Volume Laterality Blood specimen 02/05/2014 7:02 AM 014 7:05 (specimen) CDT AM CDT Omaira Chavez PA-C LAB - BLOOD ORDERABLES Performing Organization Address City/State/ZIP Code Phon e Number [facility] [address] LABS (ABNORMAL) Parathormone intact (02/05/2014 7:02 AM CDT) Patholo gist Method Time Signature Parathyroid 362 (H) 12 - 72 [facility] Hormone Intact pg/mL [facility] Specimen Anatomical Collection Method Collection Time Receive d Time (Source) Location / / Volume Laterality Blood specimen 02/05/2014 7:02 AM 014 7:05 (specimen) CDT AM CDT Sina Robison MD LAB - BLOOD ORDERABLES Performing Organization Address City/State/ZIP Code Phon e Number [address] LABS (ABNORMAL) Ferritin (02/05/2014 7:02 AM CDT) P athologist Signature Ferritin 932 (H) 20 - 300 [facility] ng/mL [place] LABS Specimen Anatomical Collection Method Collection Time Receive d Time (Source) Location / / Volume Laterality Blood specimen 02/05/2014 7:02 AM 014 7:05 (specimen) CDT AM CDT Sina Robison MD LAB - BLOOD ORDERABLES Performing Organization Address City/[facility]/ZIP Code Phon e Number [address] LABS (ABNORMAL) Iron and iron binding capacity (02/05/2014 7:02 AM CDT) Analysis Performed At Patho logist Time Signature Iron 119 35 - 180 [facility] ug/dL [facility] Iron Binding 207 (L) 240 - 430 [facility] Cap ug/dL [facility] Iron Saturation 58 (H) 15 - 46 % [facility] Index [facility] Specimen Anatomical Collection Method Collection Time Receive d Time (Source) Location / / Volume Laterality Blood specimen 02/05/2014 7:02 AM 014 7:05 (specimen) CDT AM CDT Sina Robison MD LAB - BLOOD ORDERABLES Performing Organization Address City/State/ZIP Code Phon e Number [facility] [address] [place] [address] [facility] LABS (ABNORMAL) Glucose by meter (02/05/2014 6:59 AM CDT) P athologist Signature Glucose 123 (H) 60 - 99 POINT OF CARE mg/dL TEST, GLUCOSE Specimen Anatomical Collection Method Collection Time Receive d Time (Source) Location / / Volume Laterality 02/05/2014 6:59 AM 4 7:05 CDT AM CDT Migel LARES - ROBERT POCT Performing Organization Address City/[facility]/ZIP Code Phon e Number FV POINT OF [...] Migel JONES POCT Performing Organization Address City/[facility]/ZIP Code Phon e Number FV POINT OF [...] - BEAJ POCT Performing Organization Address City/[facility]/ZIP Code Phon e Number FV POINT OF [...] - BEAJ POCT Performing Organization Address City/[facility]/ZIP Code Phon e Number FV POINT OF [...] CDT Migel JONES POCT Performing Organization Address [facility] Phon e Number FV POINT [...] LARES - ROBERT POCT Performing Organization Address [facility] Phon e Number FV POINT OF CARE TEST, GLUCOSE POINT OF CARE TEST, GLUCOSE EKG 12-lead, complete (02/04/2014 11:09 PM CDT) [facility] gist Method Time Signature Interpretation ECG Click View RADIOLOGY Image link RESULTS to view waveform and result Specimen (Source) Anatomical Collection Method Collection Time Re ceived Time Location / / Volume Laterality 02/04/2014 11:09 PM CDT Chemo Carr MD ECG ORDERABLES Performing Organization Address [facility] Phon e Number RADIOLOGY RESULTS (ABNORMAL) Glucose by meter (02/04/2014 10:56 PM CDT) P athologist Signature Glucose 161 (H) 60 - 99 POINT OF CARE mg/dL TEST, GLUCOSE Specimen Anatomical Collection Method Collection Time Receive d Time (Source) Location / / Volume Laterality 02/04/2014 10:56 02/04/2014 PM CDT 11:00 PM CDT Migel JONES POCT Performing Organization Address [facility] Phon e Number FV POINT [...] - BEAJ POCT Performing Organization Address City/[facility]/ZIP Code Phon e Number FV POINT OF [...] - BEAKER POCT Performing Organization Address City/[facility]/ZIP Code Phon e Number FV POINT OF CARE TEST, GLUCOSE POINT OF CARE TEST, GLUCOSE Troponin I (02/04/2014 7:10 PM CDT) athologist Signature Troponin I 0.016 0.000 - [facility] 0.034 ug/L CAMPUS LABS Specimen Anatomical Collection Method Collection Time Receive d Time (Source) Location / / Volume Laterality Blood specimen 02/04/2014 7:10 PM 014 7:23 (specimen) CDT PM CDT Adeline Diaz MD LAB - BLOOD ORDERABLES Performing Organization Address City/State/ZIP Code Phon e Number [address] [address] [facility] LABS (ABNORMAL) Glucose by meter (02/04/2014 7:01 PM CDT) P athologist Signature Glucose 157 (H) 60 - 99 POINT OF CARE mg/dL TEST, GLUCOSE Specimen Anatomical Collection Method Collection Time Receive d Time (Source) Location / / Volume Laterality 02/04/2014 7:01 PM 4 7:05 CDT PM CDT Migel Merchant MD LAB - BEAKER POCT Performing Organization Address [facility] Phon e Number FV POINT [...] LAB - BEAKER POCT Performing Organization Address [facility] Phon e Number FV POINT [...] LAB - BEAKER POCT Performing Organization Address [facility] Phon e Number FV POINT [...] LAB - BEAJ POCT Performing Organization Address [facility] Phon e Number FV POINT [...] LAB - BEAKER POCT Performing Organization Address [facility] Phon e Number FV POINT [...] LAB - BEAJ POCT Performing Organization Address [facility] Phon e Number FV POINT OF CARE TEST, GLUCOSE POINT OF CARE TEST, GLUCOSE Troponin I (02/04/2014 12:42 PM CDT) athologist Signature Troponin I 0.025 0.000 - [facility] 0.034 ug/L [place] [facility] Specimen Anatomical Collection Method Collection Time Receive d Time (Source) Location / / Volume Laterality Blood specimen 02/04/2014 12:42 4 (specimen) PM CDT 12:45 PM CDT Adeline Diaz MD LAB - BLOOD ORDERABLES Performing Organization Address City/State/ZIP Code Phon e Number [facility] [address] [place] [address] [facility] LABS (ABNORMAL) Glucose by meter (02/04/2014 [...] EKG 12-lead, complete (02/04/2014 7:03 AM CDT) [facility] Method Time Signature Interpretation ECG [...] Signature Troponin I ES <0.012 0.000 - [facility] 0.034 ug/L CAMPUS LABS Specimen Anatomical Collection Method Collection Time Receive d Time (Source) Location / / Volume Laterality 02/04/2014 5:49 AM 4 5:51 CDT AM CDT Caitlin Owens MD LAB - BLOOD ORDERABLES Performing Organization Address City/State/ZIP Code Phon e Number [phone] [place] [address] LABS (ABNORMAL) Basic metabolic panel (02/04/2014 5:49 AM CDT) [facility] Method Time Signature Sodium 142 133 - 144 [facility] mmol/L [facility] Potassium 4.9 3.4 - 5.3 [facility] mmol/L [facility] Chloride 107 94 - 109 [facility] mmol/L [facility] Carbon Dioxide 23 20 - 32 [facility] mmol/L [facility] Anion Gap 12 6 - 17 [facility] mmol/L [facility] Glucose 151 (H) 60 - 99 [facility] mg/dL [facility] Urea Nitrogen 57 (H) 7 - 30 [facility] mg/dL [facility] Creatinine 5.94 (H) 0.66 - [facility] 1.25 mg/dL [facility] GFR Estimate 10 (L) >60 [facility] mL/min/1.7 [place] m2 CAMPUS LABS GFR Estimate If 12 (L) >60 [facility] Black mL/min/1.7 [place] m2 [facility]AMPUS LABS Calcium 9.4 8.5 - 10.4 [facility] mg/dL [facility] Specimen Anatomical Collection Method Collection Time Receive d Time (Source) Location / / Volume Laterality Blood specimen 02/04/2014 5:49 AM 014 5:51 (specimen) CDT AM CDT Omaira Chavez PA-C LAB - BLOOD ORDERABLES Performing Organization Address City/[facility]/ZIP Code Phon e Number [address] LABS (ABNORMAL) Phosphorus (02/04/2014 5:49 AM CDT) P athologist Signature Phosphorus 6.3 (H) 2.5 - 4.5 [facility] mg/dL [place] [facility] Specimen Anatomical Collection Method Collection Time Receive d Time (Source) Location / / Volume Laterality Blood specimen 02/04/2014 5:49 AM 014 5:51 (specimen) CDT AM CDT Omaira Chavez PA-C LAB - BLOOD ORDERABLES Performing Organization Address City/State/ZIP Code Phon e Number [facility] [address] LABS Magnesium (02/04/2014 5:49 AM CDT) P athologist Signature Magnesium 2.1 1.6 - 2.3 [facility] mg/dL [place] [facility]S Specimen Anatomical Collection Method Collection Time Receive d Time (Source) Location / / Volume Laterality Blood specimen 02/04/2014 5:49 AM 014 5:51 (specimen) CDT AM CDT Omaira Chavez PA-C LAB - BLOOD ORDERABLES Performing Organization Address City/State/ZIP Code Phon e Number [facility] [address] [place] [address] [facility] (ABNORMAL) CBC with platelets differential (02/04/2014 5:49 AM CDT) [facility] gist Method Time Signature WBC 13.8 (H) 4.0 - [facility] 11.0 UNIV[facility] 10e9/L CAMPUS LABS RBC Count 3.10 (L) 4.4 - 5.9 [facility] 10e12/L [facility] Hemoglobin 9.5 (L) 13.3 - [facility] 17.7 g/dL [facility] Hematocrit 28.7 (L) 40.0 - [facility] 53.0 % [facility] MCV 93 78 - 100 [facility] fl [facility] MCH 30.6 26.5 - [facility] 33.0 pg [facility] MCHC 33.1 31.5 - [facility] 36.5 g/dL [facility] RDW 14.6 10.0 - [facility] 15.0 % [facility] Platelet Count 91 (L) 150 - 450 [facility] 10e9/L [facility] Diff Method Automated [facility] Method [facility] % Neutrophils 95.8 % [facility] % Lymphocytes 1.2 % [facility] % Monocytes 2.8 % [facility]S % Eosinophils 0.0 % [facility] % Basophils 0.0 % [facility] % Immature 0.2 % [facility] Granulocytes [facility] Absolute 13.2 (H) 1.6 - 8.3 [facility] Neutrophil 10e9/L [facility] Absolute 0.2 (L) 0.8 - 5.3 [facility] Lymphocytes 10e9/L [facility] Absolute 0.4 0.0 - 1.3 [facility] Monocytes 10e9/L [facility] Absolute 0.0 0.0 - 0.7 [facility] Eosinophils 10e9/L [facility] Absolute 0.0 0.0 - 0.2 [facility] Basophils 10e9/L [facility] Abs Immature 0.0 0 - 0.4 [facility] Granulocytes 10e9/L [facility] Specimen Anatomical Collection Method Collection Time Receive d Time (Source) Location / / Volume Laterality Blood specimen 02/04/2014 5:49 AM 014 5:51 (specimen) CDT AM CDT Omaira Chavez PA-C LAB - BLOOD ORDERABLES Performing Organization Address City/State/ZIP Code Phon e Number [address] [address] [facility] LABS (ABNORMAL) Glucose by meter (02/04/2014 [...] - BEAJ POCT Performing Organization Address City/[facility]/ZIP Code Phon e Number FV POINT OF [...] - BEAJ POCT Performing Organization Address City/[facility]/ZIP Code Phon e Number FV POINT OF [...] - BEAKER POCT Performing Organization Address City/[facility]/ZIP Code Phon e Number FV POINT OF CARE TEST, GLUCOSE POINT OF CARE TEST, GLUCOSE Potassium (02/03/2014 10:16 PM CDT) P athologist Signature Potassium 4.8 3.4 - 5.3 [facility] mmol/L CAMPUS LABS Specimen Anatomical Collection Method Collection Time Receive d Time (Source) Location / / Volume Laterality Blood specimen 02/03/2014 10:16 4 (specimen) PM CDT 10:19 PM CDT Caitlin Owens MD LAB - BLOOD ORDERABLES Performing Organization Address City/State/ZIP Code Phon e Number [facility] [address] [place], [place] [id number] [place] [address] LABS (ABNORMAL) Hemoglobin (02/03/2014 10:16 PM CDT) P athologist Signature Hemoglobin 9.4 (L) 13.3 - 17.7 [facility] g/dL [place] [facility]S Specimen Anatomical Collection Method Collection Time Receive d Time (Source) Location / / Volume Laterality Blood specimen 02/03/2014 10:16 4 (specimen) PM CDT 10:19 PM CDT Caitlin Owens MD LAB - BLOOD ORDERABLES Performing Organization Address City/[facility]/ZIP Code Phon e Number [address] [address] [facility] LABS (ABNORMAL) Glucose by meter (02/03/2014 9:55 PM CDT) athologist Signature Glucose 167 (H) 60 - 99 POINT OF CARE mg/dL TEST, GLUCOSE Specimen Anatomical Collection Method Collection Time Receive d Time (Source) Location / / Volume Laterality 02/03/2014 9:55 PM 4 CDT 10:00 PM CDT Migel LARES - ROBERT POCT Performing Organization Address City/[facility]/ZIP Code Phon e Number FV POINT OF [...] athologist Signature Potassium 4.7 3.4 - 5.3 [facility] mmol/L CAMPUS LABS Specimen Anatomical Collection Method Collection Time Receive d Time (Source) Location / / Volume Laterality Blood specimen 02/03/2014 6:52 PM 014 6:53 (specimen) CDT PM CDT Caitlin Owens MD LAB - BLOOD ORDERABLES Performing Organization Address City/[facility]/ZIP Code Phon e Number [facility] [address] LABS (ABNORMAL) Hemoglobin (02/03/2014 6:52 PM CDT) athologist Signature Hemoglobin 9.6 (L) 13.3 - 17.7 [facility] g/dL CAMPUS LABS Specimen Anatomical Collection Method Collection Time Receive d Time (Source) Location / / Volume Laterality Blood specimen 02/03/2014 6:52 PM 014 6:53 (specimen) CDT PM CDT Caitlin Owens MD LAB - BLOOD ORDERABLES Performing Organization Address City/[facility]/ZIP Code Phon e Number [facility] [address] LABS (ABNORMAL) Glucose by meter (02/03/2014 6:00 PM CDT) athologist Signature Glucose 140 (H) 60 - 99 POINT OF CARE mg/dL TEST, GLUCOSE Specimen Anatomical Collection Method Collection Time Receive d Time (Source) Location / / Volume Laterality 02/03/2014 6:00 PM 4 6:05 CDT PM CDT Migel Merchant MD LAB - BEAJ POCT Performing Organization Address [facility]/ZIP Code Phon e Number FV POINT OF [...] LAB - ROBERT POCT Performing Organization Address [facility] Phon e Number FV POINT [...] LAB - BEAJ POCT Performing Organization Address [facility] Phon e Number FV POINT [...] LAB - BEAJ POCT Performing Organization Address [facility] Phon e Number FV POINT OF CARE TEST, GLUCOSE POINT OF CARE TEST, GLUCOSE Potassium (02/03/2014 1:41 PM CDT) P athologist Signature Potassium 4.7 3.4 - 5.3 [facility] mmol/L CAMPUS LABS Specimen Anatomical Collection Method Collection Time Receive d Time (Source) Location / / Volume Laterality Blood specimen 02/03/2014 1:41 PM 014 1:43 (specimen) CDT PM CDT Caitlin Owens MD LAB - BLOOD ORDERABLES Performing Organization Address City/[facility]/ZIP Code Phon e Number [phone] [place] [address] LABS (ABNORMAL) Hemoglobin (02/03/2014 1:41 PM CDT) athologist Signature Hemoglobin 9.8 (L) 13.3 - 17.7 [facility] g/dL CAMPUS LABS Specimen Anatomical Collection Method Collection Time Receive d Time (Source) Location / / Volume Laterality Blood specimen 02/03/2014 1:41 PM 014 1:43 (specimen) CDT PM CDT Caitlin Owens MD LAB - BLOOD ORDERABLES Performing Organization Address [facility] Code Phon e Number [phone] [place] [address] LABS (ABNORMAL) Glucose by meter (02/03/2014 1:10 PM CDT) athologist Signature Glucose 135 (H) 60 - 99 POINT OF CARE mg/dL TEST, GLUCOSE Specimen Anatomical Collection Method Collection Time Receive d Time (Source) Location / / Volume Laterality 02/03/2014 1:10 PM 4 1:15 CDT PM CDT Migel Merchant MD LAB - BEAKER POCT Performing Organization Address City/[facility]/ZIP Code Phon e Number FV POINT OF [...] athologist Signature Potassium 4.8 3.4 - 5.3 [facility] mmol/L CAMPUS LABS Specimen Anatomical Collection Method Collection Time Receive d Time (Source) Location / / Volume Laterality Blood specimen 02/03/2014 10:11 4 (specimen) AM CDT 10:23 AM CDT Caitlin Owens MD LAB - BLOOD ORDERABLES Performing Organization Address City/State/ZIP Code Phon e Number [facility] [address] LABS (ABNORMAL) Hemoglobin (02/03/2014 10:11 AM CDT) P athologist Signature Hemoglobin 9.7 (L) 13.3 - 17.7 [facility] g/dL CAMPUS LABS Specimen Anatomical Collection Method Collection Time Receive d Time (Source) Location / / Volume Laterality Blood specimen 02/03/2014 10:11 4 (specimen) AM CDT 10:23 AM CDT Caitlin Owens MD LAB - BLOOD ORDERABLES Performing Organization Address City/State/ZIP Code Phon e Number [facility] [address] LABS (ABNORMAL) Glucose by meter (02/03/2014 [...] Basic metabolic panel (02/03/2014 5:38 AM CDT) [facility] gist Method Time Signature Sodium [...] Address City/State/ZIP Code Phon e Number [address] [address] [facility] LABS (ABNORMAL) Phosphorus (02/03/2014 [...] Phon e Number [facility] [address] LABS Magnesium (02/03/2014 5:38 AM CDT) P athologist Signature Magnesium 2.0 1.6 - 2.3 [facility] mg/dL [place] [facility] Specimen Anatomical Collection Method Collection Time Receive d Time (Source) Location / / Volume Laterality Blood specimen 02/03/2014 5:38 AM 014 5:40 (specimen) CDT AM CDT Omaira Chavez PA-C LAB - BLOOD ORDERABLES Performing Organization Address City/[facility]/ZIP Code Phon e Number [facility] [address] LABS (ABNORMAL) CBC with platelets differential (02/03/2014 5:38 AM CDT) Patholo gist Method Time Signature WBC 13.2 (H) 4.0 - [facility] 11.0 [facility] 10e9/L [place] [facility] RBC Count 3.20 (L) 4.4 - 5.9 [facility] 10e12/L [facility]S Hemoglobin 9.9 (L) 13.3 - [facility] 17.7 g/dL [facility]S Hematocrit 30.2 (L) 40.0 - [facility] 53.0 % [facility]S MCV 94 78 - 100 [facility] fl [facility] LABS MCH 30.9 26.5 - [facility] 33.0 pg [facility]S MCHC 32.8 31.5 - [facility] 36.5 g/dL [facility]S RDW 14.5 10.0 - [facility] 15.0 % [facility]S Platelet Count 108 (L) 150 - 450 [facility] 10e9/L [facility] LABS Diff Method Automated [facility] Method [facility] LABS % Neutrophils 96.9 % [facility] LABS % Lymphocytes 0.7 % [facility] LABS % Monocytes 2.1 % [facility] LABS % Eosinophils 0.0 % [facility] [...] 0.0 0.0 - 0.2 [facility] Basophils 10e9/L [place] [facility] LABS Abs Immature 0.0 0 - 0.4 [facility] Granulocytes 10e9/L [facility]S Specimen Anatomical Collection Method Collection Time Receive d Time (Source) Location / / Volume Laterality Blood specimen 02/03/2014 5:38 AM 014 5:40 (specimen) CDT AM CDT Omaira Chavez PA-C LAB - BLOOD ORDERABLES Performing Organization Address City/State/ZIP Code Phon e Number [address] LABS (ABNORMAL) Hemoglobin A1c (02/03/2014 5:38 AM CDT) Analysis Performed At Patho logist Time Signature Hemoglobin A1C 6.2 (H) 4.3 - 6.0 [facility] % [facility] LABS Specimen Anatomical Collection Method Collection Time Receive d Time (Source) Location / / Volume Laterality Blood specimen 02/03/2014 5:38 AM 014 5:40 (specimen) CDT AM CDT Caitlin Owens MD LAB - BLOOD ORDERABLES Performing Organization Address City/State/ZIP Code Phon e Number [address] LABS (ABNORMAL) Glucose by meter (02/03/2014 [...] athologist Signature Potassium 4.7 3.4 - 5.3 [facility] mmol/L [place] [facility]S Specimen Anatomical Collection Method Collection Time Receive d Time (Source) Location / / Volume Laterality Blood specimen 02/03/2014 1:18 AM 014 1:20 (specimen) CDT AM CDT Caitlin Owens MD LAB - BLOOD ORDERABLES Performing Organization Address City/[facility]/ZIP Code Phon e Number [address] LABS (ABNORMAL) Hemoglobin (02/03/2014 1:18 AM CDT) P athologist Signature Hemoglobin 9.8 (L) 13.3 - 17.7 [facility] g/dL [place] [facility] Specimen Anatomical Collection Method Collection Time Receive d Time (Source) Location / / Volume Laterality Blood specimen 02/03/2014 1:18 AM 014 1:20 (specimen) CDT AM CDT Caitlin Owens MD LAB - BLOOD ORDERABLES Performing Organization Address City/[facility]/ZIP Code Phon e Number [address] LABS (ABNORMAL) Glucose by meter (02/03/2014 1:16 AM CDT) P athologist Signature Glucose 186 (H) 60 - 99 POINT OF CARE mg/dL TEST, GLUCOSE Specimen Anatomical Collection Method Collection Time Receive d Time (Source) Location / / Volume Laterality 02/03/2014 1:16 AM 4 1:20 CDT AM CDT Migel Merchant MD LAB - BEAKER POCT Performing Organization Address City/[facility] [place]/ZIP Code Phon e Number FV POINT OF [...] - BEAKER POCT Performing Organization Address City/[facility] [place]/ZIP Code Phon e Number FV POINT OF [...] athologist Signature Phosphorus 4.4 2.5 - 4.5 [facility] mg/dL CAMPUS LABS Specimen Anatomical Collection Method Collection Time Receive d Time (Source) Location / / Volume Laterality Blood specimen 02/02/2014 10:50 201 4 (specimen) PM CDT 11:06 PM CDT Caitlin Owens MD LAB - BLOOD ORDERABLES Performing Organization Address City/[facility] [place]/ZIP Code Phon e Number [facility] [address] LABS Magnesium (02/02/2014 10:50 PM CDT) athologist Signature Magnesium 1.8 1.6 - 2.3 [facility] mg/dL [place] LABS Specimen Anatomical Collection Method Collection Time Receive d Time (Source) Location / / Volume Laterality Blood specimen 02/02/2014 10:50 201 4 (specimen) PM CDT 11:06 PM CDT Caitlin Owens MD LAB - BLOOD ORDERABLES Performing Organization Address City/[facility] [place]/ZIP Code Phon e Number [facility] [address] LABS (ABNORMAL) Basic metabolic panel (02/02/2014 10:50 PM CDT) [facility] gist Method Time Signature Sodium 138 133 - 144 [facility] mmol/L [facility] LABS Potassium 4.5 3.4 - 5.3 [facility] mmol/L [facility] LABS Chloride 104 94 - 109 [facility] mmol/L [facility] LABS Carbon Dioxide 25 20 - 32 [facility] mmol/L [facility] LABS Anion Gap 10 6 - 17 [facility] mmol/L [facility] LABS Glucose 134 (H) 60 - 99 [facility] mg/dL [facility] LABS Urea Nitrogen 44 (H) 7 - 30 [facility] mg/dL [facility] LABS Creatinine 6.14 (H) 0.66 - [facility] 1.25 mg/dL [facility] LABS GFR Estimate 9 (L) >60 [facility] mL/min/1.7 [place] [address] CAMPUS LABS GFR Estimate If 11 (L) >60 [facility] Black mL/min/1.7 [place] [address] CAMPUS LABS Calcium 8.8 8.5 - 10.4 [facility] mg/dL [facility] LABS Specimen Anatomical Collection Method Collection Time Receive d Time (Source) Location / / Volume Laterality Blood specimen 02/02/2014 10:50 4 (specimen) PM CDT 11:06 PM CDT Caitlin Owens MD LAB - BLOOD ORDERABLES Performing Organization Address City/State/ZIP Code Phon e Number [facility] [address] [place] [address] [place] [facility] ([facility]) CBC with platelets differential (02/02/2014 10:50 PM CDT) [facility] gist Method Time Signature WBC 8.2 4.0 - [facility] 11.0 [facility] 10e9/L [place] LABS RBC Count 3.34 (L) 4.4 - 5.9 [facility] 10e12/L [facility] LABS Hemoglobin 10.3 (L) 13.3 - [facility] 17.7 g/dL [facility] LABS Hematocrit 30.9 (L) 40.0 - [facility] 53.0 % [facility] LABS MCV 93 78 - 100 [facility] fl [facility] LABS MCH 30.8 26.5 - [facility] 33.0 pg [facility] LABS MCHC 33.3 31.5 - [facility] 36.5 g/dL [facility] LABS RDW 14.3 10.0 - [facility] 15.0 % [facility] LABS Platelet Count 79 (L) 150 - 450 [facility] 10e9/L [facility] LABS Diff Method Automated [facility] Method [facility] LABS % Neutrophils 96.7 % [facility] LABS % Lymphocytes 1.6 % [facility] % Monocytes 1.2 % [facility] % Eosinophils 0.4 % [facility] % Basophils 0.0 % [facility] LABS % Immature 0.1 % [facility] Granulocytes [facility] LABS Absolute 7.9 1.6 - 8.3 [facility] Neutrophil 10e9/L [facility] LABS Absolute 0.1 (L) 0.8 - 5.3 [facility] Lymphocytes 10e9/L [facility] LABS Absolute 0.1 0.0 - 1.3 [facility] Monocytes 10e9/L [facility] LABS Absolute 0.0 0.0 - 0.7 [facility] Eosinophils 10e9/L [facility] LABS Absolute 0.0 0.0 - 0.2 [facility] Basophils 10e9/L [facility] LABS Abs Immature 0.0 0 - 0.4 [facility] Granulocytes 10e9/L [facility] LABS Specimen Anatomical Collection Method Collection Time Receive d Time (Source) Location / / Volume Laterality Blood specimen 02/02/2014 10:50 4 (specimen) PM CDT 11:06 PM CDT Caitlin Owens MD LAB - BLOOD ORDERABLES Performing Organization Address City/State/ZIP Code Phon e Number [facility] [address] LABS (ABNORMAL) VENOUS PANEL (02/02/2014 10:09 PM CDT) [facility] Method Time Signature Ph Venous 7.31 (L) 7.32 - [facility] 7.43 pH [facility] LABS PCO2 Venous 52 (H) 40 - 50 [facility] mm Hg [facility] LABS PO2 Venous 34 25 - 47 [facility] mm Hg [facility] LABS Bicarbonate 26 21 - 28 [facility] Venous mmol/L [facility] LABS Base Deficit 0.3 mmol/L [facility] Venous [facility] LABS Comment: Reference range: -7.7 to 1.9 FIO2 45 [facility] LABS Sodium 137 133 - 144 mmol/L [facility] LABS Potassium 4.4 3.4 - 5.3 mmol/L [facility] LABS Hemoglobin 10.0 (L) 13.3 - 17.7 g/dL [place] [facility] LABS Glucose 116 (H) 60 - 99 mg/dL [facility] LABS Calcium Ionized Whole Blood 4.8 4.4 - 5.2 mg/dL [facility] LABS Specimen Anatomical Collection Method Collection Time Receive d Time (Source) Location / / Volume Laterality 02/02/2014 10:09 02/02/2014 PM CDT 10:14 PM CDT Migel Merchant MD LAB - BLOOD ORDERABLES Performing Organization Address City/[facility] [place]/ZIP Code Phon e Number [facility] [address] LABS (ABNORMAL) Glucose by meter (02/02/2014 9:24 PM CDT) P athologist Signature Glucose 129 (H) 60 - 99 POINT OF CARE mg/dL TEST, GLUCOSE Specimen Anatomical Collection Method Collection Time Receive d Time (Source) Location / / Volume Laterality 02/02/2014 9:24 PM 4 9:31 CDT PM CDT Migel Merchant MD LAB - ROBERT POCT Performing Organization Address City/[facility] [place]/[facility] Phon e Number FV POINT [...] - BEAJ POCT Performing Organization Address City/[facility] [place]/[facility] Phon e Number FV POINT OF CARE TEST, GLUCOSE POINT OF CARE TEST, GLUCOSE (ABNORMAL) VENOUS PANEL (02/02/2014 6:40 PM CDT) P athologist Signature Ph Venous 7.35 7.32 - [facility] 7.43 pH [facility] LABS PCO2 Venous 50 40 - 50 mm [facility] Hg [facility] LABS PO2 Venous 46 25 - 47 mm [facility] Hg [facility] LABS Bicarbonate 28 21 - 28 [facility] Venous mmol/L [facility] LABS Base Excess 1.8 mmol/L [facility] Venous [facility] LABS Comment: Reference range: -7.7 to 1.9 FIO2 100% [facility] LABS Sodium 141 133 - 144 mmol/L [facility] LABS Potassium 3.7 3.4 - 5.3 mmol/L [facility] LABS Hemoglobin 10.3 (L) 13.3 - 17.7 g/dL [place] [facility] LABS Glucose 76 60 - 99 mg/dL [facility] LABS Calcium Ionized Whole Blood 4.8 4.4 - 5.2 mg/dL [facility] LABS Specimen Anatomical Collection Method Collection Time Receive d Time (Source) Location / / Volume Laterality 02/02/2014 6:40 PM 4 6:44 CDT PM CDT Migel Merchant MD LAB - BLOOD ORDERABLES Performing Organization Address City/State/ZIP Code Phon e Number [facility] [address] [place] [address] [facility] LABS Glucose by meter (02/02/2014 5:11 [...] LAB - BEAKER POCT Performing Organization Address [facility] [place]/[facility] Phon e Number FV POINT [...] MARYELLEN Blood component (02/02/2014 2:07 PM CDT) [facility] Method Time Signature Unit Number [id number] [facility] LABS Blood Red Blood [facility] Component Cells [facility] LABS Reduced Division 00 [facility] LABS Status of No longer [place] Unit available [facility] 02/06/2014 HOSPITAL LAB 0300 Specimen Anatomical Collection Method Collection Time Receive d Time (Source) Location / / Volume Laterality 02/02/2014 2:07 PM 4 2:10 CDT PM CDT Caitlin Owens MD LABORATORY Performing Organization Address City/[facility] [place]/ZIP Code Phon e Number [place] [phone] [address] [place], [place] [address] [facility] LABS [facility] LAB Blood component (02/02/2014 2:07 PM CDT) [facility] Method Time Signature Unit Number [id number] [facility] LABS Blood Red Blood [facility] Component Cells [facility] LABS Reduced Division 00 [facility] LABS Status of No longer [place] Unit available [facility] 02/06/2014 HOSPITAL LAB 0300 Specimen Anatomical Collection Method Collection Time Receive d Time (Source) Location / / Volume Laterality 02/02/2014 2:07 PM 4 2:10 CDT PM CDT Caitlin Owens MD LABORATORY Performing Organization Address City/[facility] [place]/ZIP Code Phon e Number [place] [phone] [address] [place], [place] [address] [facility] LABS [facility] LAB ABO/Rh type and screen (02/02/2014 2:07 PM CDT) Patholo gist Method Time Signature Units Ordered 2 [facility] LABS ABO A [facility] LABS RH(D) Pos [facility] LABS Antibody Neg [facility] Screen [facility] LABS Test Valid [facility] Only At [facility] BLOOD BANK Center,[place] LAB w Hospital Specimen 02/05/2014 [facility] Expires [place] BLOOD BANK LAB Crossmatch Red Blood [facility] Cells [facility] LABS Specimen Anatomical Collection Method Collection Time Receive d Time (Source) Location / / Volume Laterality Blood specimen 02/02/2014 2:07 PM 014 2:10 (specimen) CDT PM CDT Caitlin Owens MD LAB - BLOOD BANK TEST ORDER Performing Organization Address City/State/ZIP Code Phon e Number [facility] [address] [place], [place] [id number] [place] [address] LABS [facility] BLOOD BANK LAB (ABNORMAL) Lipid Profile (02/02/2014 2:07 PM CDT) P athologist Signature Cholesterol 135 <200 mg/dL [facility] LABS Comment: LDL Cholesterol is the primary guide to therapy. The NCEP recommends further evaluation of: patients with cholesterol greater than 200 mg/dL if additional risk facto rs are present, cholesterol greater than 240 mg/dL, triglycerides greater than 1 50 mg/dL, or HDL less than 40 mg/dL. Triglycerides 124 0 - 150 mg/dL [facility] LAB[facility] HDL Cholesterol 34 (L) >40 mg/dL [facility] Y [place] LABS LDL Cholesterol Calculated 77 0 - 129 mg/dL [facility] LABS Comment: LDL Cholesterol is the primary guide to therapy: LDL-cholesterol goal in high risk patients is <100 mg/dL and in very high risk patients is <70 mg/dL. VLDL-Cholesterol 25 0 - 30 mg/dL [facility] Cholesterol/HDL Ratio 4.0 0.0 - 5.0 [facility] Specimen Anatomical Collection Method Collection Time Receive d Time (Source) Location / / Volume Laterality Blood specimen 02/02/2014 2:07 PM 014 2:08 (specimen) CDT PM CDT Caitlin Owens MD LAB - BLOOD ORDERABLES Performing Organization Address City/[facility] [place]/ZIP Code Phon e Number [facility] [address] LABS (ABNORMAL) Hemoglobin A1c (02/02/2014 2:07 PM CDT) Analysis Performed At Patho logist Time Signature Hemoglobin A1C 6.2 (H) 4.3 - 6.0 [facility] Specimen Anatomical Collection Method Collection Time Receive d Time (Source) Location / / Volume Laterality Blood specimen 02/02/2014 2:07 PM 014 2:08 (specimen) CDT PM CDT Caitlin Owens MD LAB - BLOOD ORDERABLES Performing Organization Address City/[facility] [place]/ZIP Code Phon e Number [facility] [address] LABS Hepatitis C antibody (02/02/2014 2:07 PM CDT) [facility] gist Method Time Signature Hepatitis C Negative NEG [facility] Antibody MICROBIOLOGY Specimen Anatomical Collection Method Collection Time Receive d Time (Source) Location / / Volume Laterality Blood specimen 02/02/2014 2:07 PM 014 2:08 (specimen) CDT PM CDT Caitlin Owens MD LAB - BLOOD ORDERABLES Performing Organization Address City/[facility] [place]/ZIP Code Phon e Number [facility] 500 [place], [place] [id number] [place] [address] MICROBIOLOGY Hepatitis B core antibody IgM (02/02/2014 2:07 PM CDT) [facility] gist Method Time Signature Hepatitis B Negative NEG [facility] Core IgM MICROBIOLOGY Specimen Anatomical Collection Method Collection Time Receive d Time (Source) Location / / Volume Laterality Blood specimen 02/02/2014 2:07 PM 014 2:08 (specimen) CDT PM CDT Caitlin Owens MD LAB - BLOOD ORDERABLES Performing Organization Address City/[facility] [place]/ZIP Code Phon e Number [phone] [place] [address] MICROBIOLOGY Hepatitis B surface antigen (02/02/2014 2:07 PM CDT) [facility] gist Method Time Signature Hep B Surface Negative NEG [facility] Agn MICROBIOLOGY Specimen Anatomical Collection Method Collection Time Receive d Time (Source) Location / / Volume Laterality Blood specimen 02/02/2014 2:07 PM 2 014 2:08 (specimen) CDT PM CDT Caitlin Owens MD LAB - BLOOD ORDERABLES Performing Organization Address City/[facility]/ZIP Code Phon e Number [facility] [address] MICROBIOLOGY HIV Antigen Antibody Combo (02/02/2014 2:07 PM CDT) [facility] Method Time Signature HIV Antigen [...] [facility] [place]/ZIP Code Phon e Number [facility] [address] LABS EBV Capsid Antibody IgM (02/02/2014 2:07 PM CDT) [facility] Method [place] Signature EBV Capsid <0.2 0.0 - 0.8 [facility] Antibody IgM No detectable antibody. [facility] LABS Specimen Anatomical Collection Method Collection Time Receive d Time (Source) Location / / Volume Laterality Blood specimen 02/02/2014 2:07 PM 014 2:08 (specimen) CDT PM CDT Caitlin Owens MD LAB - BLOOD ORDERABLES Performing Organization Address City/[facility] [place]/ZIP Code Phon e Number [facility] [address] LABS (ABNORMAL) EBV Capsid Antibody IgG (02/02/2014 2:07 PM CDT) [facility] Method [place] Signature EBV Capsid >8.0 0.0 - 0.8 [facility] Antibody IgG Positive, suggests recent or past exposure [facility] [place] () [place] LABS Specimen Anatomical Collection Method Collection Time Receive d Time (Source) Location / / Volume Laterality Blood specimen 02/02/2014 2:07 PM 014 2:08 (specimen) CDT PM CDT Caitlin Owens MD LAB - BLOOD ORDERABLES Performing Organization Address City/[facility] [place]/ZIP Code Phon e Number [facility] [address] [place] [address] [facility] LABS CMV antibody IgM (02/02/2014 2:07 PM CDT) Analysis Performed At Patho logist Time Signature CMV Antibody <0.2 0.0 - 0.8 [facility] IgM Negative [facility] LABS Specimen Anatomical Collection Method Collection Time Receive d Time (Source) Location / / Volume Laterality Blood specimen 02/02/2014 2:07 PM 014 2:08 (specimen) CDT PM CDT Caitlin Owens MD LAB - BLOOD ORDERABLES Performing Organization Address City/[facility] [place]/ZIP Code Phon e Number [facility] [address] [place], [place] [phone] [place] [address] LABS (ABNORMAL) CMV Antibody IgG (02/02/2014 2:07 PM CDT) P athologist Signature CMV Antibody 7.8 (H) 0.0 - 0.8 [facility] IgG [facility] LABS Comment: Positive Specimen Anatomical Collection Method Collection Time Receive d Time (Source) Location / / Volume Laterality Blood specimen 02/02/2014 2:07 PM 014 2:08 (specimen) CDT PM CDT Caitlin Owens MD LAB - BLOOD ORDERABLES Performing Organization Address City/[facility]/ZIP Code Phon e Number [facility] [address] [place], [place] [phone] [place] [address] LABS (ABNORMAL) Comprehensive metabolic panel (02/02/2014 2:07 PM CDT) Patholo gist Method Time Signature Sodium 141 133 - 144 [facility] mmol/L [facility] LABS Potassium 4.2 3.4 - 5.3 [facility] mmol/L [facility] LABS Chloride 101 94 - 109 [facility] mmol/L [facility] LABS Carbon Dioxide 26 20 - 32 [facility] mmol/L [facility] LABS Anion Gap 13 6 - 17 [facility] mmol/L [facility] LABS Glucose 112 (H) 60 - 99 [facility] mg/dL [facility] LABS Urea Nitrogen 42 (H) 7 - 30 [facility] mg/dL [facility] LABS Creatinine 6.03 (H) 0.66 - [facility] 1.25 [place] mg/dL CAMPUS LABS GFR Estimate 9 (L) >60 [facility] mL/min/1. [place] 7m2 [place] LABS GFR Estimate If 11 (L) >60 [facility] Black mL/min/1. [place] [address] LABS Calcium 9.9 8.5 - [facility] 10.4 [place] mg/dL [place] LABS Bilirubin Total 0.7 0.2 - 1.3 [facility] mg/dL [facility] LABS Albumin 4.2 3.3 - 4.9 [facility] g/dL [facility] LABS Protein Total 7.5 6.8 - 8.8 [facility] g/dL [facility] LABS Alkaline 88 40 - 150 [facility] Phosphatase U/L [facility] LABS ALT 33 0 - 70 [facility] U/L [facility] LABS AST 18 0 - 45 [facility] U/L [facility] LABS Specimen Anatomical Collection Method Collection Time Receive d Time (Source) Location / / Volume Laterality Blood specimen 02/02/2014 2:07 PM 014 2:08 (specimen) CDT PM CDT Caitlin Owens MD LAB - BLOOD ORDERABLES Performing Organization Address City/State/ZIP Code Phon e Number [address] LABS (ABNORMAL) CBC with platelets differential (02/02/2014 2:07 PM CDT) [facility] gist Method Time Signature WBC 6.3 4.0 - [facility] 11.0 [place] 10e9/L [place] LABS RBC Count 3.71 (L) 4.4 - 5.9 [facility] 10e12/L [facility] LABS Hemoglobin 11.5 (L) 13.3 - [facility] 17.7 g/dL [facility] LABS Hematocrit 33.7 (L) 40.0 - [facility] 53.0 % [facility] LABS MCV 91 78 - 100 [facility] fl [facility] LABS MCH 31.0 26.5 - [facility] 33.0 pg [facility] LABS MCHC 34.1 31.5 - [facility] 36.5 g/dL [facility] LABS RDW 14.0 10.0 - [facility] 15.0 % [facility] LABS Platelet Count 110 (L) 150 - 450 [facility] 10e9/L [facility] LABS Diff Method Automated [facility] Method [facility] LABS % Neutrophils 52.4 % [facility] LABS % Lymphocytes 32.1 % [facility] % Monocytes 7.9 % [facility] % Eosinophils 7.1 % [facility] % Basophils 0.3 % [facility] % Immature 0.2 % [facility] Granulocytes [facility] LAB[facility] Absolute 3.3 1.6 - 8.3 [facility] Neutrophil 10e9/L [facility] [place] LABS Absolute 2.0 0.8 - 5.3 [facility] Lymphocytes 10e9/L [facility] Absolute 0.5 0.0 - 1.3 [facility] Monocytes 10e9/L [facility] Absolute 0.5 0.0 - 0.7 [facility] Eosinophils 10e9/L [facility] Absolute 0.0 0.0 - 0.2 [facility] Basophils 10e9/L [facility] LABS Abs Immature 0.0 0 - 0.4 [facility] Granulocytes 10e9/L [facility] LABS Specimen Anatomical Collection Method Collection Time Receive d Time (Source) Location / / Volume Laterality Blood specimen 02/02/2014 2:07 PM 02/02/ 014 2:08 (specimen) CDT PM CDT Caitlin Owens MD LAB - BLOOD ORDERABLES Performing Organization Address City/State/ZIP Code Phon e Number [facility] [address] LABS Creatinine urine calculation only (02/02/2014 2:00 PM CDT) P athologist Signature Creatinine 88 mg/dL [facility] Urine [place] LABS Specimen Anatomical Collection Method Collection Time Receive d Time (Source) Location / / Volume Laterality 02/02/2014 2:00 PM 4 2:12 CDT PM CDT Caitlin Owens MD LAB - URINE ORDERABLES Performing Organization Address City/[facility] Phon e Number [facility] [address] LABS (ABNORMAL) Urine culture (02/02/2014 2:00 PM CDT) Component Value Ref Test Analysis Performed At Patholo gist Range Method Time Signature Specimen Midstream [facility] Special Specimen received [facility] Requests in preservative MICROBIOLOGY Culture Micro <10,000 colonies/mL Gram pos itive cocci No further identification Susceptibility [facility] testing not routinely done [facility] CROBIOLOGY <10,000 colonies/mL Strain 2 Gram positive [...] GENERAL ORDERABL ES Performing Organization Address City/[facility]/ZIP Code Phon e Number [address] LABS [facility] MICROBIOLOGY (ABNORMAL) Protein random urine (02/02/2014 2:00 PM CDT) [facility] Method Time Signature Protein Random 1.89 g/L [facility] Urine [facility] LABS Protein Total 2.15 (H) 0 - 0.2 [facility] Urine g/gr g/g Cr [facility] LABS Specimen Anatomical Collection Method Collection Time Receive d Time (Source) Location / / Volume Laterality Urine specimen URINE SPECIMEN 02/02/2014 2:00 PM 02/02 2:12 (specimen) OBTAINED BY CLEAN CDT PM CDT CATCH PROCEDURE / Unknown Caitlin Owens MD LAB - URINE ORDERABLES Performing Organization Address City/[facility] Phon e Number [address] LABS (ABNORMAL) Routine UA with microscopic (02/02/2014 2:00 PM CDT) [facility] Method Time Signature Color Urine Light Yellow [facility] LABS Appearance Urine Clear [facility] LABS Glucose Urine 70 (A) NEG mg/dL [facility] LABS Bilirubin Urine Negative NEG [facility] LABS Ketones Urine Negative NEG mg/dL [facility] LABS Specific [place] 1.008 1.003 - [facility] Urine 1.035 [facility] LABS Blood Urine Negative NEG [facility] LABS pH Urine 8.0 (H) 5.0 - 7.0 [facility] pH [facility] LABS Protein Albumin 100 (A) NEG mg/dL [facility] Urine [facility] LABS Urobilinogen Normal 0.0 - 2.0 [facility] mg/dL mg/dL [facility] LABS Nitrite Urine Negative NEG [facility] LABS Leukocyte Negative NEG [facility] Esterase Urine [facility] LABS Source Clean catch [facility] urine [facility] LABS WBC Urine 1 0 - [...] Phon e Number [facility] [address] [place] [address] [place] [facility] (ABNORMAL) Glucose by meter (02/02/2014 1:59 [...] 12-lead, tracing only (02/02/2014 1:58 PM CDT) [facility] gist Method Time Signature Interpretation ECG Click View RADIOLOGY Image link RESULTS to view waveform and result Specimen (Source) Anatomical Collection Method Collection Time Re ceived Time Location / / Volume Laterality 02/02/2014 1:58 PM CDT Caitlin Owens MD ECG ORDERABLES Performing Organization Address City/[facility]/[place]IP [facility] [...] dose, When verbally ordered by the prescriber. [place] throat with 1-4 sprays 5 minutes prior [...] Gi isael - Provider: Lynne Gatica [facility] - Reason: Other - Comment: Dose already received, see previous order) 0838 (Given - Provider: Lashaun Braswell RN)1820 (Given - Provider: Lashaun Brsawell RN) 0809 (Given - Provider: Amanda low [...] draw. documented in this encounter Care Teams Housekeeper/Custodian/Laundry Worker Relationship Specialty Start Date End Date Momo Forbes PCP - General Family Practice 01/02/14 [facility] [address] [place] [address] Ingrid Santana, RN Registered Nurse Transplant 02/10/12 documented as of this encounter
--- OUTSIDE RECORDS SUMMARY | 2022-06-30 11:04 | XMS_ITS | Encounter Summary ---
:1950 Author Organization [place] Address [address] [place] [address] Care Team Providers Name Role Phone Ingrid Santana RN Unavailable Unavailable Momo Forbes Primary Care Provider Encounter Details Date Type Department Care Team Description 01/21/2014 Results Only LABORATORY RESULTS Mingo Dangelo MD [address] [facility] SE [facility] [phone] (Wo rk) Social History Tobacco Use [...] Results HLA Flow T/B Crossmatch Allo (01/21/2014) [facility] gist Method Time Signature Crossmatch Donor:[id number], ?Crossmatch Date:02/02/2014 HISTOTRAC Result (Note) Serum Date [...] Phon e Number [facility] Immunology/Histocompatabil [address] [facility] [address] [facility] [address] Building, Room 3-580 HISTOTRAC documented in this encounter Visit Diagnoses Not on filedocumented in this encounter Care Teams Powder Hand Relationship Specialty Start Date End Date Momo Forbes PCP - General Family Practice 01/02/14 [facility] [address] [place] [address] Ingrid Santana, RN Registered Nurse Transplant 02/10/12 documented as of this encounter
--- OUTSIDE RECORDS SUMMARY | 2022-06-30 11:04 | XMS_ITS | Encounter Summary ---
:1950 Author Organization [place] Address [address] [place] [address] Care Team Providers Name Role Phone Ingrid Santana RN Unavailable Unavailable Momo Forbes Primary Care Provider Encounter Details Date Type Department Care Team Description 01/21/2014 Results Only LABORATORY RESULTS Mingo Dangelo MD [address] [facility] SE [facility] 195 [place] [address] (Wo rk) Social History Tobacco [...] HLA Lukasz Class II Single Antigen (01/21/2014) [facility] gist Method Time Signature SA2 Test [...] Phon e Number [facility] Immunology/Histocompatabil [place], [place] [address] ity [facility] [address], Room 3-580 HISTOTRAC documented in this encounter Visit Diagnoses Not on filedocumented in this encounter Care Teams Batteryman Relationship Specialty Start Date End Date Momo Forbes PCP - General Family Practice 01/02/14 [facility] [address] [place] [address] Ingrid Santana, RN Registered Nurse Transplant 02/10/12 documented as of this encounter
--- OUTSIDE RECORDS SUMMARY | 2022-06-30 11:04 | XMS_ITS | Encounter Summary ---
:1950 Author Organization [place] Address [address] [place] [address] Care Team Providers Name Role Phone Ingrid Santana RN Unavailable Unavailable Momo Forbes Primary Care Provider Encounter Details Date Type Department Care Team Description 01/20/2014 Orders Only [facility], [facility] jm [place] [address] [phone] [place] [address] 738 [place] [address] (Wo rk) Social History [...] Results Tacrolimus level (02/15/2014 8:55 AM CDT) [facility] Method Time Signature Tacrolimus Last 02/14/2014 [facility] Dose 2030 [facility] Tacrolimus 5.9 5.0 - [facility] Level 15.0 ug/L [facility] [...] Phon e Number [facility] 500 [place], [place] [phone] [place] [address] LABS documented in this encounter Visit Diagnoses Not on filedocumented in this encounter Care Teams Automatic Folder Seamer Relationship Specialty Start Date End Date Momo Forbes PCP - General Family Practice 01/02/14 [facility] [address] [place] [address] Ingrid Santana, RN Registered Nurse Transplant 02/10/12 documented as of this encounter
--- OUTSIDE RECORDS SUMMARY | 2022-06-30 11:05 | XMS_ITS | Encounter Summary ---
:1950 Author Organization [place] Address [address] [place] [address] Care Team Providers Name Role Phone Toña Jones MD Primary Care Provider Ingrid Santana RN Unavailable Unavailable Encounter Details Date Type Department Care Team Description 07/30/2013 Results Only LABORATORY RESULTS Mingo Dangelo MD [address] [facility] 195 [place] [address] (Wo rk) Social History Tobacco [...] HLA Lukasz Class I Single Antigen (07/30/2013) [facility] gist Method Time Signature SA1 Test [...] / Volume Laterality 07/30/2013 07/31/2013 2:10 PM SQL SERVER DBA Mingo Dangelo MD LAB - IMMUNOLOGY ORDERABLES Performing Organization Address City/State/ZIP Code Phon e Number [facility] Immunology/Histocompatabil [place], [place] [address] [facility] [address] Building, Room 3-580 HISTOTRAC documented in this encounter Visit Diagnoses Not on filedocumented in this encounter Care Teams Basket Grader Relationship Specialty Start Date End Date Toña Jones MD PCP - General Nephrology 11/25/11 01/01/14 Ingrid Santana, RN Registered Nurse Transplant 02/10/12 documented as of this encounter
--- OUTSIDE RECORDS SUMMARY | 2022-06-30 11:05 | XMS_ITS | Encounter Summary ---
:1950 Author Organization [place] Address [address] [place] [address]. [place] [address] Care Team Providers Name Role Phone Toña Jones MD Primary Care Provider Ingrid Santana RN Unavailable Unavailable Momo Forbes Primary Care Provider Encounter Details Date Type Department Care Team Description 02/18/2012 Abstract The Transplant [facility] r 2nd Floor, Clinic [address] [phone] Social History Tobacco Use [...] filedocumented in this encounter Care Teams Cell Tender Helper Relationship Specialty Start Date End Date Toña Jones MD PCP - General Nephrology 11/25/11 01/01/14 Momo Forbes PCP - General Family Practice 01/02/[address] [address] Ingrid Santana, RN Registered Nurse Transplant 02/10/12 documented as of this encounter
--- OUTSIDE RECORDS SUMMARY | 2022-06-30 11:05 | XMS_ITS | Encounter Summary ---
:1950 Author Organization [place] Address [facility] hospital0 [place] [address] Care Team Providers Name Role Phone Toña [...] - HIM SCAN - 09/25/2012 8:26 AM LEAD MANUFACTURING ENGINEERING TECH ARCHIVE documented in this encounter Results LAB RESULT - HIM SCAN - ARCHIVE (09/25/2012 8:26 AM LEAD MANUFACTURING ENGINEERING TECH) Specimen (Source) Anatomical Location Collection Method / Collectio n Time Received Time / Laterality Volume Narrative This result has an attachment that is no t available. Marcela Cordero MD LAB - BLOOD ORDERABLES documented in this encounter Visit Diagnoses Not on filedocumented in this encounter Care Teams Photovoltaic Subcontractor Relationship Specialty Start Date End Date Toña Jones MD PCP - General Nephrology 11/25/11 01/01/14 Momo Forbes PCP - General Family Practice 01/02/[address] [place] [address] Ingrid Santana, RN Registered Nurse Transplant 02/10/12 documented as of this encounter
--- OUTSIDE RECORDS SUMMARY | 2022-06-30 11:05 | XMS_ITS | Encounter Summary ---
:1950 Author Organization [place] Address [address] [place] [address] Care Team Providers Name Role Phone Toña Jones MD Primary Care Provider Ingrid Santana RN Unavailable Unavailable Encounter Details Date Type Department Care Team Description 10/11/2012 Results Only LABORATORY RESULTS Barbara Bradley MD [address] [place], [place] [address] Social History Tobacco Use [...] HLA Lukasz Class I Single Antigen (10/11/2012) [facility] gist Method Time Signature SA1 Test [...] / Volume Laterality 10/11/2012 10/12/2012 1:03 PM FISHER TRAP Barbara Bradley MD LAB - IMMUNOLOGY ORDERABLES Performing Organization Address City/State/ZIP Code Phon e Number [facility] Immunology/Histocompatabil [place], [place] [address] ity [facility] [address] [facility] [address] Building, Room 3-580 HISTOTRAC documented in this encounter Visit Diagnoses Not on filedocumented in this encounter Care Teams [place] Rope Maker Relationship Specialty Start Date End Date Toña Jones MD PCP - General Nephrology 11/25/11 01/01/14 Ingrid Santana, RN Registered Nurse Transplant 02/10/12 documented as of this encounter
--- OUTSIDE RECORDS SUMMARY | 2022-06-30 11:05 | XMS_ITS | Encounter Summary ---
:1950 Author Organization [place] Address [address] [facility] [place] [address] Care Team Providers Name Role Phone Toña [...] Ump Sot Surgery 2nd Floor, Clinic [address]A [address] [phone] Referral ID Status Reason Start Date Expiration Date Visits Requ ested Visits Authorized [id number] Closed 12/10/2013 06/08/2014 1 1 Consultation - Closed Specialty Diagnoses / Procedures Referred By Contact Refer red To Contact Diagnoses Organ transplant candidate ESRD (end stage renal disease) on dialysis (H) DM (diabetes mellitus), type 2 (H) Zz Ump Sot [facility] Floor, [facility] [address] [phone] Referral ID Status Reason Start Date Expiration Date Visits Requ ested Visits Authorized [id number] Closed 12/10/2013 06/08/2014 1 1 Encounter Details Date Type Department Care Team Description 12/07/2013 Orders Only Transplant Surgery Nazia March LPN Organ transplant candidate (Primary Dx); Clinic Screening for other and unsp ecified cardiovascular conditions; 2nd Floor, Clinic 2A ESRD (end stage renal diseas e) on dialysis (H); Tommy Wilburn DM (madeleine betes mellitus), type 2 (H) [address] [phone] Social History Tobacco Use Types [...] uncontrolled documented in this encounter Care Teams Residence Life Director Relationship Specialty Start Date End Date Toña Jones MD PCP - General Nephrology 11/25/11 01/01/14 Ingrid Santana, RN Registered Nurse Transplant 02/10/12 documented as of this encounter
--- OUTSIDE RECORDS SUMMARY | 2022-06-30 11:05 | XMS_ITS | Encounter Summary ---
:1950 Author Organization [place] Address [address] [place] [address] Care Team Providers Name Role Phone Toña Jones MD Primary Care Provider Ingrid Santana RN Unavailable Unavailable Reason for Visit (Routine) - Closed Specialty Diagnoses / Procedures Referred By Contact Refer red To Contact Radiology Diagnoses [facility] Procedure Notes: UNSPECIFIED ESSENTIAL HYPERTENSION,PREOPERATIVE EXAMINATION, UNSPECIFIED, [facility] Procedures RADIOLOGY 500 [place] [address] Phone: Referral ID Status Reason Start Date Expiration Date Visits Requ ested Visits Authorized [id number] Closed 02/11/2012 02/10/2013 1 1 Encounter Details Date Type Department Care Team Description 02/15/2012 Hospital Encounter [facility] Barbara Bradley Imaging MD [place] 500 [facility] [address] [place], [place] [phone] [phone] Social History Tobacco Use Types Packs/Day Years [...] tablet by mouth 0 02/18/2014 daily. B cxlgbca-M-kebsw acid Take 1 capsule by mouth 0 [...] on filedocumented in this encounter Care Teams Trailhead Construction Worker Relationship Specialty Start Date End Date Toña Jones MD PCP - General Nephrology 11/25/11 01/01/14 Ingrid Santana RN Registered Nurse Transplant 02/10/12 documented as of this encounter
--- OUTSIDE RECORDS SUMMARY | 2022-06-30 11:05 | XMS_ITS | Encounter Summary ---
:1950 Author Organization [place] Address [facility]0 [facility] [place] [address] Care Team Providers Name Role Phone Toña [...] Associated Diagnosis Comme nts PATHOLOGY RESULT - [facility] 03/17/2012 8:24 AM CDT SCAN - ARCHIVE documented in this encounter Results PATHOLOGY RESULT - [facility] SCAN - ARCHIVE (03/17/2012 8:24 AM CDT) Specimen (Source) Anatomical Location Collection Method / Collectio n Time Received Time / Laterality Volume Narrative This result has an attachment that is no t available. Gich Provider LAB - COPATH SPECIAL DIAG OR DERABLES documented in this encounter Visit Diagnoses Not on filedocumented in this encounter Care Teams Commercial Energy Rater Relationship Specialty Start Date End Date Toña Jones MD PCP - General Nephrology 11/25/11 01/01/14 Momo Forbes PCP - General Family Practice 01/02/14 [facility] [address] [place] [address] Ingrid Santana, RN Registered Nurse Transplant 02/10/12 documented as of this encounter
--- OUTSIDE RECORDS SUMMARY | 2022-06-30 11:05 | XMS_ITS | Encounter Summary ---
:1950 Author Organization [place] Address [address] [place] [address] Care Team Providers Name Role Phone Toña Jones MD Primary Care Provider Ingrid Santana RN Unavailable Unavailable Encounter Details Date Type Department Care Team Description 07/03/2012 Results Only LABORATORY RESULTS Barbara Bradley MD [address] [place], [place] [address] Social History Tobacco Use [...] HLA Lukasz Class II Single Antigen (07/03/2012) [facility] gist Method [...] / Volume Laterality 07/03/2012 07/05/2012 1:57 PM TRIM ATTACHER Burleigh Suseekar Bradley MD LAB - IMMUNOLOGY ORDERABLES Performing Organization Address City/State/ZIP Code Phon e Number [facility] Immunology/Histocompatabil [place], [place] [address] ity [facility] [address] [facility] [address] Building, Room 3-580 HISTOTRAC documented in this encounter Visit Diagnoses Not on filedocumented in this encounter Care Teams Store Lead Relationship Specialty Start Date End Date Toña Jones MD PCP - General Nephrology 11/25/11 01/01/14 Ingrid Santana, RN Registered Nurse Transplant 02/10/12 documented as of this encounter
--- OUTSIDE RECORDS SUMMARY | 2022-06-30 11:05 | XMS_ITS | Encounter Summary ---
:1950 Author Organization [place] Address [facility] [place] [address] Care Team Providers Name Role Phone Toña [...] HLA Lukasz Class II Single Antigen (04/16/2013) [facility] gist Method Time Signature SA2 Test [...] Phon e Number [facility] Immunology/Histocompatabil [place], [place] [address] ity [facility] [address] Building, Room 3-580 HISTOTRAC documented in this encounter Visit Diagnoses Not on filedocumented in this encounter Care Teams Intake Clerk Relationship Specialty Start Date End Date Toña Jones MD PCP - General Nephrology 11/25/11 01/01/14 Ingrid Santana, RN Registered Nurse Transplant 02/10/12 documented as of this encounter
--- OUTSIDE RECORDS SUMMARY | 2022-06-30 11:05 | XMS_ITS | Encounter Summary ---
:1950 Author Organization [place] Address [address] [place] [address] Care Team Providers Name Role Phone Toña Jones MD Primary Care Provider Ingrid Santana RN Unavailable Unavailable Encounter Details Date Type Department Care Team Description 07/03/2012 Results Only LABORATORY RESULTS Barbara Bradley MD [address] [place], [place] [address] Social History Tobacco Use [...] HLA Lukasz Class I Single Antigen (07/03/2012) [facility] gist Method Time Signature SA1 [...] / Volume Laterality 07/03/2012 07/05/2012 1:57 PM CAR SALES CONSULTANT Barbara Bradley MD LAB - IMMUNOLOGY ORDERABLES Performing Organization Address City/State/ZIP Code Phon e Number [facility] Immunology/Histocompatabil [place], [place] [address] ity [facility] [address] [facility] [address] Building, Room 3-580 HISTOTRAC documented in this encounter Visit Diagnoses Not on filedocumented in this encounter Care Teams Mosaicist Relationship Specialty Start Date End Date Toña Jones MD PCP - General Nephrology 11/25/11 01/01/14 Ingrid Santana, RN Registered Nurse Transplant 02/10/12 documented as of this encounter
--- OUTSIDE RECORDS SUMMARY | 2022-06-30 11:05 | XMS_ITS | Encounter Summary ---
:1950 Author Organization [place] Address [facility]0 [facility] [place] [address] Care Team Providers Name Role Phone Toña [...] filedocumented in this encounter Care Teams Tube Balancer Relationship Specialty Start Date End Date Toña Jones MD PCP - General Nephrology 11/25/11 01/01/14 Momo Forbes PCP - General Family Practice 01/02/[address] [place] [address] Ingrid Santana, RN Registered Nurse Transplant 02/10/12 documented as of this encounter
--- OUTSIDE RECORDS SUMMARY | 2022-06-30 11:05 | XMS_ITS | Encounter Summary ---
:1950 Author Organization [place] Address [facility] [place] [address] Care Team Providers Name Role Phone Toña Jones MD Primary Care Provider Ingrid Santana RN Unavailable Unavailable Reason for Visit Reason Onset Date Comments Transplant 12/19/2013 Kidney waitlist appo intments Encounter Details Date Type Department Care Team Description 12/19/2013 Telephone The Transplant [place] low Abstract, Provider Transplant (Kidney 2nd Floor, Clinic 2A waitlist appointments) [address] [phone] Social History Tobacco Use Types Packs/Day Years [...] filedocumented in this encounter Care Teams Color Tester Relationship Specialty Start Date End Date Toña Jones MD PCP - General Nephrology 11/25/11 01/01/14 [place], Ingrid A, RN Registered Nurse Transplant 02/10/12 documented as of this encounter
--- OUTSIDE RECORDS SUMMARY | 2022-06-30 11:05 | XMS_ITS | Encounter Summary ---
:1950 Author Organization [place] Address [facility] [place] [address] Care Team Providers Name Role Phone Toña [...] DM (madeleine betes mellitus), type 2 (H) [address] [phone] Social History Tobacco Use [...] uncontrolled documented in this encounter Care Teams Director Trade Relationship Specialty Start Date End Date Toña Jones MD PCP - General Nephrology 11/25/11 01/01/14 Ingrid Santana, RN Registered Nurse Transplant 02/10/12 documented as of this encounter
--- OUTSIDE RECORDS SUMMARY | 2022-06-30 11:05 | XMS_ITS | Encounter Summary ---
:1950 Author Organization [place] Address [address] [place] [address] Care Team Providers Name Role Phone Toña Jones MD Primary Care Provider Ingrid Santana RN Unavailable Unavailable Encounter Details Date Type Department Care Team Description 07/30/2013 Results Only LABORATORY RESULTS Mingo Dangelo MD [address] [facility] 195 [place] [address] (Wo rk) Social History Tobacco [...] HLA Lukasz Class II Single Antigen (07/30/2013) [facility] gist Method Time Signature SA2 [...] Volume Laterality 07/30/2013 07/31/2013 2:1 0 PM JUNIOR LINUX SYSTEMS ADMINISTRATOR Mingo Dangelo MD LAB - IMMUNOLOGY ORDERABLES Performing Organization Address City/State/ZIP Code Phon e Number [facility] Immunology/Histocompatabil [place], [place] [address] ity [facility] [address], Room 3-580 HISTOTRAC documented in this encounter Visit Diagnoses Not on filedocumented in this encounter Care Teams Tractor Trailer Mechanic Relationship Specialty Start Date End Date Toña Jones MD PCP - General Nephrology 11/25/11 01/01/14 Ingrid Santana, RN Registered Nurse Transplant 02/10/12 documented as of this encounter
--- OUTSIDE RECORDS SUMMARY | 2022-06-30 11:05 | XMS_ITS | Encounter Summary ---
:1950 Author Organization [place] Address [facility] [place] [address] Care Team Providers Name Role Phone Toña [...] HLA Lukasz Class I Single Antigen (04/16/2013) [facility] gist Method Time Signature SA1 Test Single [...] Phon e Number [facility] Immunology/Histocompatabil [place], [place] [address] ity [facility] [address] Building, Room 3-580 HISTOTRAC documented in this encounter Visit Diagnoses Not on filedocumented in this encounter Care Teams Annual Greenhouse Manager Relationship Specialty Start Date End Date Toña Jones MD PCP - General Nephrology 11/25/11 01/01/14 Ingrid Santana, RN Registered Nurse Transplant 02/10/12 documented as of this encounter
--- OUTSIDE RECORDS SUMMARY | 2022-06-30 11:05 | XMS_ITS | Encounter Summary ---
:1950 Author Organization [place] Address [facility] [place] [address] Care Team Providers Name Role Phone Toña [...] filedocumented in this encounter Care Teams Switchboard And Control Room Operator Relationship Specialty Start Date End Date Toña Jones MD PCP - General Nephrology 11/25/11 01/01/14 Momo Forbes PCP - General Family Practice 01/02/[address] [place] [address] Ingrid Santana, RN Registered Nurse Transplant 02/10/12 documented as of this encounter
--- OUTSIDE RECORDS SUMMARY | 2022-06-30 11:05 | XMS_ITS | Encounter Summary ---
:1950 Author Organization [place] Address [address] [place] [address] Care Team Providers Name Role Phone Toña Jones MD Primary Care Provider Ingrid Santana RN Unavailable Unavailable Encounter Details Date Type Department Care Team Description 07/03/2012 Results Only LABORATORY RESULTS Barbara Bradley MD [address] [place], [place] [address] Social History Tobacco Use [...] in this encounter Results Virtual Crossmatch (07/03/2012) [facility] Method Time Signature Crossmatch Donor:ABRAHAM HICKEY ? Crossmatch Date:07/24/2012 HISTOTRAC Result (Note) Serum Date ??Test ?Result ? Donor Specific Antibody ?Comments 07/03/2012 ??Class I/Virtxm1 ? DSA ?None ? 07/03/2012 ??Class II/Virtxm 1 ?DSA ?None ? Specimen (Source) Anatomical Collection Method Collection Time Re ceived Time Location / / Volume Laterality 07/03/2012 07/05/2012 1:57 PM BREADING MACHINE TENDER Barbara Bradley MD LAB - IMMUNOLOGY ORDERABLES Performing Organization Address City/State/ZIP Code Phon e Number [facility] Immunology/Histocompatabil [place], [place] [address] [facility] [address] Building, Room 3-580 HISTOTRAC documented in this encounter Visit Diagnoses Not on filedocumented in this encounter Care Teams Coal Inspector Relationship Specialty Start Date End Date Toña Jones MD PCP - General Nephrology 11/25/11 01/01/14 Ingrid Santana RN Registered Nurse Transplant 02/10/12 documented as of this encounter
--- OUTSIDE RECORDS SUMMARY | 2022-06-30 11:05 | XMS_ITS | Encounter Summary ---
:1950 Author Organization [place] Address [address] [place] [address] Care Team Providers Name Role Phone Toña Jones MD Primary Care Provider Ingrid Santana RN Unavailable Unavailable Encounter Details Date Type Department Care Team Description 08/25/2012 Results Only LABORATORY RESULTS Barbara Bradley MD [address] [place], [place] [address] Social History Tobacco Use [...] AM Results f or this CROSSMATCH ALLO REPAIR MANAGER procedure ar e in the results section. documented in this encounter Results HLA Flow T/B Crossmatch Allo (08/25/2012 9:49 AM REPAIR MANAGER) [facility] Method Time Signature Crossmatch Donor:ABRAHAM [...] Volume Laterality 08/25/2012 9:49 AM 3 9:06 REPAIR MANAGER AM REPAIR MANAGER Barbara Bradley MD LAB - IMMUNOLOGY ORDERABLES Performing Organization Address City/State/ZIP Code Phon e Number [facility] Immunology/Histocompatabil [place], [place] [address] roger [facility] [address] Building, Room 3-580 HISTOTRAC documented in this encounter Visit Diagnoses Not on filedocumented in this encounter Care Teams Groundwater Programs Director Relationship Specialty Start Date End Date Toña Jones MD PCP - General Nephrology 11/25/11 01/01/14 Ingrid Santana RN Registered Nurse Transplant 02/10/12 documented as of this encounter
--- OUTSIDE RECORDS SUMMARY | 2022-06-30 11:05 | XMS_ITS | Encounter Summary ---
:1950 Author Organization [place] Address [address] [place] [address] Care Team Providers Name Role Phone Toña Jones MD Primary Care Provider Ingrid Santana RN Unavailable Unavailable Encounter Details Date Type Department Care Team Description 04/13/2012 Results Only LABORATORY RESULTS Mingo Dangelo MD [address] [facility] [address] [place] [address] (Wo rk) Social History Tobacco [...] HLA Lukasz Class I Single Antigen (04/13/2012) [facility] gist Method Time Signature [...] Immunology/Histocompatabil [place], [place] [address] ity [facility] [address], Room 3-580 HISTOTRAC documented in this encounter Visit Diagnoses Not on filedocumented in this encounter Care Teams Gas Golf Cart Repairer Relationship Specialty Start Date End Date Toña Jones MD PCP - General Nephrology 11/25/11 01/01/14 Ingrid Santana, RN Registered Nurse Transplant 02/10/12 documented as of this encounter
--- OUTSIDE RECORDS SUMMARY | 2022-06-30 11:05 | XMS_ITS | Encounter Summary ---
:1950 Author Organization [place] Address [address] [place] [address] Care Team Providers Name Role Phone Toña Jones MD Primary Care Provider Ingrid Santana RN Unavailable Unavailable Encounter Details Date Type Department Care Team Description 11/05/2013 Results Only LABORATORY RESULTS Barbara Bradley MD [address] [place], [place] [address] Social History Tobacco Use [...] II Single Antigen (11/05/2013 7:20 AM CDT) [facility] gist Method Time Signature SA2 Test [...] Phon e Number [facility] Immunology/Histocompatabil [place], [place] [address] ity [facility] [address], Room 3-580 HISTOTRAC documented in this encounter Visit Diagnoses Not on filedocumented in this encounter Care Teams Research Geologist Relationship Specialty Start Date End Date Toña Jones MD PCP - General Nephrology 11/25/11 01/01/14 Ingrid Santana RN Registered Nurse Transplant 02/10/12 documented as of this encounter
--- OUTSIDE RECORDS SUMMARY | 2022-06-30 11:05 | XMS_ITS | Encounter Summary ---
:1950 Author Organization [place] Address [facility] [place] [address] Care Team Providers Name Role Phone Toña Jones MD Primary Care Provider Ingrid Santana RN Unavailable Unavailable Reason for Visit Reason Comments Social Work Services Encounter Details Date Type Department Care Team Description 02/10/2012 Office Visit The Transplant Akanksha Stacy Organ transplant 2nd Floor, Clinic 2A SHALOM Zacarias candidate (Primary [facility] Dx) [address] [phone] Social History Tobacco Use Types Packs/Day Years [...] old Duration of Interview: 40 min Process: Jbrr-ji-Gypk Interview (counseling < 50%) Present at Appointment: Latrell, his brother Kiran and Latrell Zamoar, Transplant Financial Bistro AttendantHeating And Blending Supervisor Worker: CECY Ortiz, TRANSPORT ANALYST Date: February 10, 2012 Type of transplant: Kidney Donor type: Latrell indicated that he does not know of any potential donors at this time. Cadaver Prior Transplants: No Status of Transplant: Current Living Situation Location: [facility], [address] [place] [address] [facility] [id number] With Whom: Alone Family/ Social Support: Kiran lives in [place], [place]. Available, helpful Committed relationship: Latrell indicated [...] Income Savings Insurance Latrell has BC/BS through [employer] until 07/22/13. He has also applied for [...] that assist with fund raising. Discussed asking knockdown worker for assistance with cobra premiums and [...] No Adequate Finances Yes Signature: CECY Ortiz, [facility] Title: Clinical Electromagnet Crane Operator documented in this encounter Plan of Treatment Not on filedocumented as of this encounter Visit Diagnoses Diagnosis Organ transplant candidate - Primary Awaiting organ transplant status documented in this encounter Care Teams Campus Aide Relationship Specialty Start Date End Date Toña Jones MD PCP - General Nephrology 11/25/11 01/01/14 Ingrid Santana, RN Registered Nurse Transplant 02/10/12 documented as of this encounter
--- OUTSIDE RECORDS SUMMARY | 2022-06-30 11:05 | XMS_ITS | Encounter Summary ---
:1950 Author Organization [place] Address [facility] [place] [address] Care Team Providers Name Role Phone Toña [...] on filedocumented in this encounter Care Teams Net Fisher Relationship Specialty Start Date End Date Toña Jones MD PCP - General Nephrology 11/25/11 01/01/14 Momo Forbes PCP - General Family Practice 01/02/[address] [place] [address] Ingrid Santana, RN Registered Nurse Transplant 02/10/12 documented as of this encounter
--- OUTSIDE RECORDS SUMMARY | 2022-06-30 11:05 | XMS_ITS | Encounter Summary ---
:1950 Author Organization [place] Address [address] [place] [address] Care Team Providers Name Role Phone Toña Jones MD Primary Care Provider Ingrid Santana RN Unavailable Unavailable Reason for Visit (Routine) - Closed Specialty Diagnoses / Procedures Referred By Contact Refer red To Contact Cardiology Diagnoses NM STRESS LEXISCAN Procedure Notes: UNSPECIFIED ESSENTIAL HYPERTENSION,PREOPERATIVE EXAMINATION, UNSPECIFIED, Zz [facility] Electrocard Procedures RADIOLOGY [address] [place] [address] Referral ID Status Reason Start Date Expiration Date Visits Requ ested Visits Authorized [id number] Closed 02/11/2012 02/10/2013 1 1 Encounter Details Date Type Department Care Team Description 02/15/2012 Hospital Encounter ZZ [facility] ELECTROCARD Barbara Bradley [address] [place] [address] [address] [place], [place] [address] Social History Tobacco Use [...] tablet by mouth 0 02/18/2014 daily. B lrptsbu-V-mqlbl acid Take 1 capsule by mouth 0 [...] Test documented in this encounter Care Teams Photographic Engineer Relationship Specialty Start Date End Date Toña Jones MD PCP - General Nephrology 11/25/11 01/01/14 Ingrid Santana, RN Registered Nurse Transplant 02/10/12 documented as of this encounter
--- OUTSIDE RECORDS SUMMARY | 2022-06-30 11:05 | XMS_ITS | Encounter Summary ---
:1950 Author Organization [place] Address [address] [place] [address] Care Team Providers Name Role Phone Toña Jones MD Primary Care Provider Ingrid Santana RN Unavailable Unavailable Reason for Visit (Routine) - Closed Specialty Diagnoses / Procedures Referred By Contact Refer red To Contact Radiology Diagnoses NM MPI SCAN Procedure Notes: UNSPECIFIED ESSENTIAL HYPERTENSION,PREOPERATIVE EXAMINATION, UNSPECIFIED, [facility] Nuclear Medicine Procedures RADIOLOGY [address] [place] [address] Phone: Referral ID Status Reason Start Date Expiration Date Visits Requ ested Visits Authorized [id number] Closed 02/11/2012 02/10/2013 1 1 Encounter Details Date Type Department Care Team Description 02/15/2012 Hospital Encounter [facility] Barbara Bradley ESRD (end stage [facility] Imaging MD Monae renal disease) (H) [address] [facility] [address] [place] [address] Social History Tobacco Use [...] tablet by mouth 0 02/18/2014 daily. B qsgctyt-S-usdxj acid Take 1 capsule by mouth 0 [...] disease documented in this encounter Care Teams Dry Wall Nailer Relationship Specialty Start Date End Date Toña Jones MD PCP - General Nephrology 11/25/11 01/01/14 Ingrid Santana RN Registered Nurse Transplant 02/10/12 documented as of this encounter
--- OUTSIDE RECORDS SUMMARY | 2022-06-30 11:05 | XMS_ITS | Encounter Summary ---
:1950 Author Organization [place] Address [facility] [place] [address] Care Team Providers Name Role Phone Toña [...] on filedocumented in this encounter Care Teams Silk Weaver Relationship Specialty Start Date End Date Toña Jones MD PCP - General Nephrology 11/25/11 01/01/14 Momo Forbes PCP - General Family Practice 01/02/[address] [place] [address] Ingrid Santana, RN Registered Nurse Transplant 02/10/12 documented as of this encounter
--- OUTSIDE RECORDS SUMMARY | 2022-06-30 11:05 | XMS_ITS | Encounter Summary ---
:1950 Author Organization [place] Address [address] [place] [address] Care Team Providers Name Role Phone Toña Jones MD Primary Care Provider Ingrid Santana RN Unavailable Unavailable Encounter Details Date Type Department Care Team Description 02/28/2013 Orders Only [facility] Molly Sanderson Organ transplant [address] [facility] candidate (Primary Dx) [place] [address] Social History Tobacco Use Types Packs/Day Years [...] status documented in this encounter Care Teams Investigator Operator Relationship Specialty Start Date End Date Toña Jones MD PCP - General Nephrology 11/25/11 01/01/14 Ingrid Santana RN Registered Nurse Transplant 02/10/12 documented as of this encounter
--- OUTSIDE RECORDS SUMMARY | 2022-06-30 11:05 | XMS_ITS | Encounter Summary ---
:1950 Author Organization [place] Address [address] [place] [address] Care Team Providers Name Role Phone Toña Jones MD Primary Care Provider Ingrid Santana RN Unavailable Unavailable Encounter Details Date Type Department Care Team Description 04/13/2012 Results Only LABORATORY RESULTS Mingo Dangelo MD [address] [facility] [address] [place] [address] (Wo rk) Social History Tobacco [...] HLA Lukasz Class II Single Antigen (04/13/2012) [facility] gist Method Time Signature SA2 Test [...] e Number [facility] Immunology/Histocompatabil [place], [place] [address] ity [facility] [address], Room 3-580 HISTOTRAC documented in this encounter Visit Diagnoses Not on filedocumented in this encounter Care Teams Equity Sales Assistant Relationship Specialty Start Date End Date Toña Jones MD PCP - General Nephrology 11/25/11 01/01/14 Inrgid Santana, RN Registered Nurse Transplant 02/10/12 documented as of this encounter
--- OUTSIDE RECORDS SUMMARY | 2022-06-30 11:05 | XMS_ITS | Encounter Summary ---
:1950 Author Organization [place] Address [address] [place] [address] Care Team Providers Name Role Phone Toña Jones MD Primary Care Provider Ingrid Santana RN Unavailable Unavailable Encounter Details Date Type Department Care Team Description 01/17/2013 Results Only LABORATORY RESULTS Barbara Bradley MD [address] [place], [place] [address] Social History Tobacco Use [...] Phon e Number [facility] Immunology/Histocompatabil [place], [place] [address] ity [facility] [address] [facility] [address] Building, Room 3-580 HISTOTRAC documented in this encounter Visit Diagnoses Not on filedocumented in this encounter Care Teams Big Data Admin Relationship Specialty Start Date End Date Toña Jones MD PCP - General Nephrology 11/25/11 01/01/14 Ingrid Santana, RN Registered Nurse Transplant 02/10/12 documented as of this encounter
--- OUTSIDE RECORDS SUMMARY | 2022-06-30 11:05 | XMS_ITS | Encounter Summary ---
:1950 Author Organization [place] Address [address] [place] [address] Care Team Providers Name Role Phone Toña Jones MD Primary Care Provider Ingrid Santana RN Unavailable Unavailable Encounter Details Date Type Department Care Team Description 11/05/2013 Results Only LABORATORY RESULTS Barbara Bradley MD [address] [place], [place] [address] Social History Tobacco Use [...] I Single Antigen (11/05/2013 7:20 AM CDT) [facility] gist Method Time Signature SA1 Test [...] Phon e Number [facility] Immunology/Histocompatabil [place], [place] [address] ity [facility] [address], Room 3-580 HISTOTRAC documented in this encounter Visit Diagnoses Not on filedocumented in this encounter Care Teams Back Hoe Operator Relationship Specialty Start Date End Date Toña Jones MD PCP - General Nephrology 11/25/11 01/01/14 Ingrid Santana, RN Registered Nurse Transplant 02/10/12 documented as of this encounter
--- OUTSIDE RECORDS SUMMARY | 2022-06-30 11:05 | XMS_ITS | Encounter Summary ---
:1950 Author Organization [place] Address [facility] [place] [address] Care Team Providers Name Role Phone Toña [...] on filedocumented in this encounter Care Teams Dx Board Operator Relationship Specialty Start Date End Date Toña Jones MD PCP - General Nephrology 11/25/11 01/01/14 Momo Forbes PCP - General Family Practice 01/02/[address] [place] [address] Ingrid Santana, RN Registered Nurse Transplant 02/10/12 documented as of this encounter
--- OUTSIDE RECORDS SUMMARY | 2022-06-30 11:05 | XMS_ITS | Encounter Summary ---
:1950 Author Organization [place] Address [address] [place] [address] Care Team Providers Name Role Phone Toña Jones MD Primary Care Provider Ingrid Santana RN Unavailable Unavailable Encounter Details Date Type Department Care Team Description 02/15/2012 Hospital Encounter [facility] Barbara Bradley Unsp ecified essential hypertension; [facility] Imaging MD Monae Pre-operative clearance [address] [place] [phone] Social History Tobacco Use Types Packs/Day [...] tablet by mouth 0 02/18/2014 daily. B hgmaodm-R-xnyil acid Take 1 capsule by mouth 0 [...] are no regional wall motion abnormalities. Barbara Brdaley MD IMG NM ORDERABLES documented in this encounter Visit Diagnoses Diagnosis Unspecified essential hypertension Pre-operative clearance Preoperative examination, unspecified documented in this encounter Care Teams Pmp Relationship Specialty Start Date End Date Toña Jones MD PCP - General Nephrology 11/25/11 01/01/14 Ingrid Santana, RN Registered Nurse Transplant 02/10/12 documented as of this encounter
--- OUTSIDE RECORDS SUMMARY | 2022-06-30 11:05 | XMS_ITS | Encounter Summary ---
:1950 Author Organization [place] Address [address] [place] [address] Care Team Providers Name Role Phone Toña Jones MD Primary Care Provider Ingrid Santana RN Unavailable Unavailable Encounter Details Date Type Department Care Team Description 10/11/2012 Results Only LABORATORY RESULTS Barbara Bradley MD [address] [place], [place] [address] Social History Tobacco Use [...] HLA Lukasz Class II Single Antigen (10/11/2012) [facility] [...] Volume Laterality 10/11/2012 10/12/2012 1:03 PM MANAGER SECURITY Pinal Suseekar Bradley MD LAB - IMMUNOLOGY ORDERABLES Performing Organization Address City/State/ZIP Code Phon e Number [facility] Immunology/Histocompatabil [place], [place] [address] ity [facility] [address] [facility] [address] Building, Room 3-580 HISTOTRAC documented in this encounter Visit Diagnoses Not on filedocumented in this encounter Care Teams Frame Builder Relationship Specialty Start Date End Date Toña Jones MD PCP - General Nephrology 11/25/11 01/01/14 Ingrid Santana, RN Registered Nurse Transplant 02/10/12 documented as of this encounter
--- OUTSIDE RECORDS SUMMARY | 2022-06-30 11:05 | XMS_ITS | Encounter Summary ---
:1950 Author Organization [place] Address [address] [place] [address] Care Team Providers Name Role Phone Toña Jones MD Primary Care Provider Ingrid Santana RN Unavailable Unavailable Encounter Details Date Type Department Care Team Description 12/10/2013 Telephone Transplant Surgery C Nazia Bledsoe LPN 2nd Floor, Clinic [address] [place] [phone] Social History Tobacco Use Types Packs/Day [...] on filedocumented in this encounter Care Teams Sas Developer Analyst Relationship Specialty Start Date End Date Toña Jones MD PCP - General Nephrology 11/25/11 01/01/14 Ingrid Santana, RN Registered Nurse Transplant 02/10/12 documented as of this encounter
--- OUTSIDE RECORDS SUMMARY | 2022-06-30 11:05 | XMS_ITS | Encounter Summary ---
:1950 Author Organization [place] Address [address] [place] [address] Care Team Providers Name Role Phone Toña Jones MD Primary Care Provider Ingrid Santana RN Unavailable Unavailable Encounter Details Date Type Department Care Team Description 01/17/2013 Results Only LABORATORY RESULTS Barbara Bradley MD [address] [place], [place] [address] Social History Tobacco [...] HLA Lukasz Class II Single Antigen (01/17/2013) [facility] gist Method Time Signature SA2 Test [...] Phon e Number [facility] Immunology/Histocompatabil [place], [place] [address] ity [facility] [address] [facility] [address] Building, Room 3-580 HISTOTRAC documented in this encounter Visit Diagnoses Not on filedocumented in this encounter Care Teams Spa Host Relationship Specialty Start Date End Date Toña Jones MD PCP - General Nephrology 11/25/11 01/01/14 Ingrid Santana RN Registered Nurse Transplant 02/10/12 documented as of this encounter
--- OUTSIDE RECORDS SUMMARY | 2022-06-30 11:06 | XMS_ITS | Encounter Summary ---
:1950 Author Organization [facility] Address [address] [place] [address] Care Team Providers Name Role Phone Toña Jones MD Primary Care Provider Encounter Details Date Type Department Care Team Description 02/08/2012 [facility] Jesus Gamboa MD Diabetes mellitus, type 2 (H ); Health/Nurse 2nd Floor, Clinic 2A Coordinator, 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 Mut Lab Routine Diabetes mellit us, type [...] Routine 02/08/2012 7:25 AM Diabetes melli tus, [id number] MUT ANAL CDT type 2 (H) End [...] Tuberculosis by Quantiferon (02/08/2012 7:26 AM CDT) [facility] Method Time Signature M Tuberculosis Negative NEG [facility] Result [facility] M Tuberculosis 0.01 IU/mL [facility] Antigen Value [facility] Comment: This is a qualitative [...] LAB - BLOOD ORDERABLES Performing Organization Address City/[facility] Phon e Number [address] LABS Antibody titer red cell (02/08/2012 7:26 AM CDT) [facility] Method Simms Signature Antibody Titer Anti B [facility] titer IgM: [place] 4 Ig [place] LAB[facility] Specimen Anatomical Collection Method Collection Time Receive d Time (Source) Location / / Volume Laterality Blood specimen 02/08/2012 7:26 AM 012 7:31 (specimen) CDT AM CDT Darian Joshi MD LAB - BLOOD BANK TEST ORDER Performing Organization Address [facility] Phon e Number [address] LABS Prostate spec antigen screen (02/08/2012 7:25 AM CDT) athologist Signature PSA 0.44 0 - 4 ug/L [facility] LABS Comment: PSA results are about [...] Phon e Number [facility] [address] LABS Hemoglobin A1c (02/08/2012 7:25 AM CDT) athologist Signature Hemoglobin A1C 5.3 4.3 - 6.0 [facility] LABS Specimen Anatomical Collection Method Collection Time Receive d Time (Source) Location / / Volume Laterality Blood specimen 02/08/2012 7:25 AM 012 7:30 (specimen) CDT AM CDT Darian Joshi MD LAB - BLOOD ORDERABLES Performing Organization Address City/State/ZIP Code Phon e Number [facility] [address] LABS C-peptide (02/08/2012 7:25 AM CDT) athologist Signature C Peptide 5.3 0.9 - 6.9 [facility] ng/mL [place] LABS Specimen Anatomical Collection Method Collection Time Receive d Time (Source) Location / / Volume Laterality Blood specimen 02/08/2012 7:25 AM 012 7:30 (specimen) CDT AM CDT Darian Joshi MD LAB - BLOOD ORDERABLES Performing Organization Address City/[facility]/ZIP Code Phon e Number [address] LABS Cardiolipin antibody IgG and IgM (02/08/2012 7:25 AM CDT) [facility] gist Method Time Signature Cardiolipin IgG <15.0 0 - 15.0 [facility] Shaye Interpretation: ??Negative GPL [facility] VERSITY CAMPUS [...] Phon e Number [facility] [address] [place] [address] [place] [facility]ITY [facility] LABS (ABNORMAL) Comprehensive metabolic panel (02/08/2012 7:25 AM CDT) [facility] gist Method Time Signature Sodium 143 133 - 144 [facility] mmol/L [facility] Potassium 4.4 3.4 - 5.3 [facility] mmol/L [facility] Chloride 106 94 - 109 [facility] mmol/L [facility] Carbon Dioxide 24 20 - 32 [facility] mmol/L [facility] Anion Gap 13 6 - 17 [facility] mmol/L [facility] Glucose 126 (H) 60 - 99 [facility] mg/dL [facility] Urea Nitrogen 32 (H) 7 - 30 [facility] mg/dL [facility] Creatinine 5.46 (H) 0.66 - [facility] 1.25 UNIVERSITY mg/dL CAMPUS LABS GFR Estimate 11 (L) >60 [facility] mL/min/1. [address] LABS GFR Estimate If 13 (L) >60 [facility] Black mL/min/1. [address] LABS Calcium 8.5 8.5 - [facility] 10.4 UNIVERSITY mg/dL CAMPUS LABS Bilirubin Total 0.8 0.2 - 1.3 [facility] mg/dL [facility] Albumin 3.8 3.3 - 4.9 [facility] g/dL [facility] Protein Total 6.8 6.8 - 8.8 [facility] g/dL [facility] Alkaline 92 40 - 150 [facility] Phosphatase U/L [facility] ALT 13 0 - 70 [facility] U/L [facility] AST 18 0 - 45 [facility] U/L [facility] Specimen Anatomical Collection Method Collection Time Receive d Time (Source) Location / / Volume Laterality Blood specimen 02/08/2012 7:25 AM 012 7:30 (specimen) CDT AM CDT Darian Joshi MD LAB - BLOOD ORDERABLES Performing Organization Address City/[facility]/ZIP Code Phon e Number [facility] [address] [place] [address] [facility] LABS Lipid Profile (02/08/2012 7:25 AM CDT) P athologist Signature Cholesterol 134 0 - 200 [facility] mg/dL CAMPUS LABS Comment: LDL Cholesterol is the primary guide to therapy. The NCEP recommends further evaluation of: patients with cholesterol greater than 200 mg/dL if additional risk facto rs are present, cholesterol greater than 240 mg/dL, triglycerides greater than 1 50 mg/dL, or HDL less than 40 mg/dL. Triglycerides 74 0 - 150 mg/dL [facility] LABS HDL Cholesterol 42 40 - 110 mg/dL [facility] LABS LDL Cholesterol Calculated 77 0 - 129 mg/dL [facility] LABS Comment: LDL Cholesterol is the primary guide to therapy: LDL-cholesterol goal in high risk patients is <100 mg/dL and in very high risk patients is <70 mg/dL. VLDL-Cholesterol 15 0 - 30 mg/dL [facility] LABS Cholesterol/HDL Ratio 3.2 0.0 - 5.0 [facility] Specimen Anatomical Collection Method Collection Time Receive d Time (Source) Location / / Volume Laterality Blood specimen 02/08/2012 7:25 AM 012 7:30 (specimen) CDT AM CDT Darian Joshi MD LAB - BLOOD ORDERABLES Performing Organization Address City/[facility]/ZIP Code Phon e Number [facility] [address] [place] [address] [facility] LABS ABO/Rh type and screen (02/08/2012 7:25 AM CDT) Patholo gist Method Time Signature ABO A [facility] LAB[facility] RH(D) Pos [facility] Antibody Neg [facility] Screen [facility] Specimen 02/11/2012 [facility] Expires [facility] Specimen Anatomical Collection Method Collection Time Receive d Time (Source) Location / / Volume Laterality Blood specimen 02/08/2012 7:25 AM 012 7:30 (specimen) CDT AM CDT Darian Joshi MD LAB - BLOOD BANK TEST ORDER Performing Organization Address City/State/ZIP Code Phon e Number [facility] [address] [place] [address] [facility] LABS Varicella zoster antibody IgG (02/08/2012 7:25 AM CDT) Patholo gist Method Time Signature Varicella 1023.00 [facility] Zoster IgG [place] Immune Status CAMPUS LABS Ratio Vari Zoster Positive, [facility] IgG Interp suggests [place] prev. CAMPUS LABS exposure and probable immunity Specimen Anatomical Collection Method Collection Time Receive d Time (Source) Location / / Volume Laterality Blood specimen 02/08/2012 7:25 AM 012 7:30 (specimen) CDT AM CDT Darian Joshi MD LAB - BLOOD ORDERABLES Performing Organization Address City/State/ZIP Code Phon e Number [facility] [address] [place], [place] [phone] [place] [address] LABS Anti treponema EIA (02/08/2012 7:25 AM CDT) Analysis Performed At Patho logist Time Signature Treponema Negative NEG [facility] Antibody [place] [facility] Specimen Anatomical Collection Method Collection Time Receive d Time (Source) Location / / Volume Laterality Blood specimen 02/08/2012 7:25 AM 012 7:30 (specimen) CDT AM CDT Darian Joshi MD LAB - BLOOD ORDERABLES Performing Organization Address City/State/ZIP Code Phon e Number [facility] [address] [place], [place] [phone] [place] [address] LABS HIV 1 and 2 Antibody (02/08/2012 7:25 AM CDT) Analysis Performed At Patho logist Time Signature HIV 1&2 Negative NEG [facility] Antibody [facility] Specimen Anatomical Collection Method Collection Time Receive d Time (Source) Location / / Volume Laterality Blood specimen 02/08/2012 7:25 AM 012 7:30 (specimen) CDT AM CDT Darian Joshi MD LAB - BLOOD ORDERABLES Performing Organization Address City/State/ZIP Code Phon e Number [facility] [address] [place], [place] [phone] [place] [address] LABS Hepatitis C antibody (02/08/2012 7:25 AM CDT) Analysis Performed At Patho logist Time Signature Hepatitis C Negative NEG [facility] Antibody [facility] Specimen Anatomical Collection Method Collection Time Receive d Time (Source) Location / / Volume Laterality Blood specimen 02/08/2012 7:25 AM 012 7:30 (specimen) CDT AM CDT Darian Joshi MD LAB - BLOOD ORDERABLES Performing Organization Address City/[facility]/ZIP Code Phon e Number [address] LABS Hepatitis B surface antigen (02/08/2012 7:25 AM CDT) Analysis Performed At Patho logist Time Signature Hep B Surface Negative NEG [facility] Agn [facility] Specimen Anatomical Collection Method Collection Time Receive d Time (Source) Location / / Volume Laterality Blood specimen 02/08/2012 7:25 AM 012 7:30 (specimen) CDT AM CDT Darian Joshi MD LAB - BLOOD ORDERABLES Performing Organization Address City/[facility]/ZIP Code Phon e Number [address] LABS Hepatitis B surface antibody (02/08/2012 [...] LAB - BLOOD ORDERABLES Performing Organization Address City/[facility]/ZIP Code Phon e Number [address] LABS Hepatitis B core antibody (02/08/2012 7:25 AM CDT) Analysis Performed At Patho logist Time Signature Hepatitis B Negative NEG [facility] LABS Specimen Anatomical Collection Method Collection Time Receive d Time (Source) Location / / Volume Laterality Blood specimen 02/08/2012 7:25 AM 012 7:30 (specimen) CDT AM CDT Darian Joshi MD LAB - BLOOD ORDERABLES Performing Organization Address City/[facility]/ZIP Code Phon e Number [facility] [address] [place], [place] [phone] [place] [address] LABS EBV VCA IgG Antibody (02/08/2012 7:25 AM CDT) athologist Signature EBV VCA IgG 188.00 U/mL [facility] Antibody [place] [facility] Comment: Positive, suggests immunologic exposure. Specimen Anatomical Collection Method Collection Time Receive d Time (Source) Location / / Volume Laterality Blood specimen 02/08/2012 7:25 AM 012 7:30 (specimen) CDT AM CDT Darian Joshi MD LAB - BLOOD ORDERABLES Performing Organization Address City/[facility]/ZIP Code Phon e Number [address] [address] [facility] LABS CMV IGG ANTIBODY (02/08/2012 7:25 AM CDT) athologist Signature CMV IgG 3.30 U/mL [facility] Antibody [place] [facility]S Comment: Positive for anti-CMV IgG Specimen Anatomical Collection Method Collection Time Receive d Time (Source) Location / / Volume Laterality Blood specimen 02/08/2012 7:25 AM 012 7:30 (specimen) CDT AM CDT Darian Joshi MD LAB - BLOOD ORDERABLES Performing Organization Address City/[facility]/ZIP Code Phon e Number [address] [address] [facility] LABS Immunology recipient: SOT HLA Workup (ABC,DR,DQ,PRA,Crossmatch) (02/08/2012 7:25 AM CDT) [facility] gist Method Time Signature Immunology SOT HLA WORKUP [facility] Test Name [facility] Immunology Specimen [facility] Result received - [facility] CAMPUS LABS report to follow upon completion. Specimen Anatomical Collection Method Collection Time Receive d Time (Source) Location / / Volume Laterality Blood specimen 02/08/2012 7:25 AM 012 7:30 (specimen) CDT AM CDT Darian Joshi MD LAB - IMMUNOLOGY ORDERABLES Performing Organization Address City/State/ZIP Code Phon e Number [address] [place] [address] [place] [facility] (ABNORMAL) CBC with platelets differential (02/08/2012 7:25 AM CDT) [facility] gist Method Time Signature WBC 6.3 4.0 - [facility] 11.0 [place] 10e9/L [place] LABS RBC Count 3.97 (L) 4.4 - 5.9 [facility] 10e12/L [facility] Hemoglobin 12.0 (L) 13.3 - [facility] 17.7 g/dL [facility] Hematocrit 36.3 (L) 40.0 - [facility] 53.0 % [facility] MCV 91 78 - 100 [facility] fl [facility] MCH 30.2 26.5 - [facility] 33.0 pg [facility] MCHC 33.1 31.5 - [facility] 36.5 g/dL [facility] RDW 15.3 (H) 10.0 - [facility] 15.0 % [facility] Platelet Count 144 (L) 150 - 450 [facility] 10e9/L [facility] Diff Method Automated [facility] Method [facility] % Neutrophils 57.7 40 - 75 % [facility] LABS % Lymphocytes 27.7 20 - 48 % [facility] LABS % Monocytes 8.2 0 - 12 % [facility] LABS % Eosinophils 6.1 (H) 0 - 6 % [facility] LABS % Basophils 0.3 0 - 2 % [facility] LAB[facility] % Immature 0.0 0 - 0.4 % [facility] Granulocytes [facility] Absolute 3.6 1.6 - 8.3 [facility] Neutrophil 10e9/L [facility] Absolute 1.7 0.8 - 5.3 [facility] Lymphocytes 10e9/L [facility] Absolute 0.5 0.0 - 1.3 [facility] Monocytes 10e9/L [facility] Absolute 0.4 0.0 - 0.7 [facility] Eosinophils 10e9/L [facility] Absolute 0.0 0.0 - 0.2 [facility] Basophils 10e9/L [facility] Abs Immature 0.0 0 - 0.03 [facility] Granulocytes 10e9/L [facility] Specimen Anatomical Collection Method Collection Time Receive d Time (Source) Location / / Volume Laterality Blood specimen 02/08/2012 7:25 AM 012 7:30 (specimen) CDT AM CDT Darian Joshi MD LAB - BLOOD ORDERABLES Performing Organization Address City/[facility]/ZIP Code Phon e Number [facility] [address] LABS Lupus panel (02/08/2012 7:25 AM CDT) Component Value Ref Test Analysis Performed At Patholo gist Range Method Time Signature Lupus Result Negative NEG [facility] (Note) [place] COMMENTS: [place] LAB[facility] The INR is normal. APTT is normal. ??1:2 Mix is not indicated. DRVVT Screen is normal. Thrombin time is normal. NEGATIVE TEST; A LUPUS ANTICOAGULANT WAS NOT DETECTED IN THI S SPECIMEN WITHIN THE LIMITS OF THE TESTING REPERTOIRE. If the clinical picture is strongly suggestive of an antipho spholipid syndrome, recommend anticardiolipin and [id number] (IgG and IgM) antibody tests. Dee Duenas M.D. ??[phone] 02-09-2012. APTT'S: ?? Seconds Reagent = Stago [...] LAB - BLOOD ORDERABLES Performing Organization Address City/[facility]/ZIP Code Phon e Number [facility] [address] LABS Thrombin time (02/08/2012 7:25 AM CDT) athologist Signature Thrombin Time 16.7 13.0 - [facility] 19.0 sec CAMPUS LABS Specimen Anatomical Collection Method Collection Time Receive d Time (Source) Location / / Volume Laterality Blood specimen 02/08/2012 7:25 AM 012 7:30 (specimen) CDT AM CDT Darian Joshi MD LAB - BLOOD ORDERABLES Performing Organization Address City/[facility]/ZIP Code Phon e Number [facility] [address] [place], [place] [phone] [place] [address] LABS Partial thromboplastin time (02/08/2012 7:25 AM CDT) P athologist Signature PTT 29 22 - 37 sec [facility] LABS Specimen Anatomical Collection Method Collection Time Receive d Time (Source) Location / / Volume Laterality Blood specimen 02/08/2012 7:25 AM 012 7:30 (specimen) CDT AM CDT Darian Joshi MD LAB - BLOOD ORDERABLES Performing Organization Address City/[facility]/ZIP Code Phon e Number [address] LABS INR (02/08/2012 7:25 AM CDT) P athologist Signature INR 1.11 0.86 - 1.14 [facility] LABS Specimen Anatomical Collection Method Collection Time Receive d Time (Source) Location / / Volume Laterality Blood specimen 02/08/2012 7:25 AM 012 7:30 (specimen) CDT AM CDT Darina Joshi MD LAB - BLOOD ORDERABLES Performing Organization Address City/State/ZIP Code Phon e Number [phone] [place] [address] LABS Factor 2 and 5 mutation analysis (02/08/2012 7:07 AM CDT) Component Value Ref Test Analysis Performed At [facility] gist Range Method Time Signature Copath Report Patient Name: ELINOR GUTHRIE MR#: [id number] Specimen #: [id number] Collected: 02/08/2012 07:07 Received: 02/08/2012 09:00 Reported: 02/11/2012 14:03 Ordering Phy(s): DARIAN JOSHI TEST(S) REQUESTED: A: Factor 5 Leiden and Factor 2 by PCR B: DNA Isolation, High purity extraction SPECIMEN DESCRIPTION: Blood METHODOLOGY: ?? The regions of genomic DNA containing the G1 691A Factor 5 gene mutation (Factor V Leiden) and the Factor 2(Prothrombin [id number]) gene mutation were simultaneously amplified using the [employer] Xiame chain reaction. ??The amplified products were digested with restri ction endonuclease TaqI and products were analyzed by gel electrop horesis. RESULTS: FACTOR 5-LEIDEN RESULTS: Mutation analyzed: ? 1691G>A Factor 5 Mutation Interpretation: ?ABSENT Factor 5 Mutation genotype: ?G/G FACTOR 2/PROTHROMBIN RESULTS: Mutation analyzed: ? 08646U>A Factor 2 Mutation Interpretation: ?ABSENT Factor 2 Mutation genotype: ?G/G INTERPRETATION: The patient is negative for the Factor 5 mutation and negati ve for the Factor 2 mutation. This test was developed and its performance determined by [facility] ??Molecular Diagnostic Laboratory. It has [...] By: Liliya Stone MD TESTING LAB LOCATION: [place] [id number] [facility] [address] [place] [id number] COLLECTION SITE: Client: ??[facility] Location: ??UUTXO (B) Specimen Anatomical Collection Method Collection Time Receive d Time (Source) Location / / Volume Laterality 02/08/2012 7:07 AM 2 9:00 CDT AM CDT Provider Unknown LAB - GENOMICS Performing Organization Address City/State/ZIP Code Phon e Number [facility] (ABNORMAL) Routine UA with microscopic (02/08/2012 7:06 AM CDT) Component Value Ref Test Analysis Performed At [facility] gist Range Method Time Signature Color Urine Light Yellow [facility] [place] [facility] Appearance Urine Clear [facility] Glucose Urine 300 (A) NEG [facility] mg/dL [facility] Bilirubin Urine Negative NEG [facility] Ketones Urine Negative NEG [facility] mg/dL [facility] Specific [place] 1.010 1.003 - [facility] Urine 1.035 [facility] Blood Urine Negative NEG [facility] pH Urine 7.5 (H) 5.0 - [facility] 7.0 pH UN[facility] CAMPUS LABS Protein Albumin 300 (A) NEG [facility] Urine mg/dL [facility]AMP[facility] LABS Urobilinogen Normal 0.0 - [facility] mg/dL 2.0 UN[facility]ERSITY mg/dL CAMPUS LABS Nitrite Urine Negative NEG [facility] LABS Leukocyte Negative NEG [facility] Esterase Urine [facility] [place] LAB[facility] Source Unspecified [facility] Urine [facility]ITY CAMPUS LABS WBC Urine 1 0 - 2 [facility] /HPF [facility] [place] LAB[facility] RBC Urine <1 0 - 2 [facility] /HPF [facility] Hyaline Casts 3 (H) 0 - 2 [facility] /LPF [facility] [place] LAB[facility] Specimen Anatomical Collection Method Collection Time Receive d Time (Source) Location / / Volume Laterality Urine specimen 02/08/2012 7:06 AM 012 7:08 (specimen) CDT AM CDT Darian Joshi MD LAB - URINE ORDERABLES Performing Organization Address City/State/ZIP Code Phon e Number [facility] [address] [facility] documented in this encounter Visit Diagnoses Diagnosis Diabetes mellitus, type 2 (H) Type II or unspecified type diabetes aung litus without mention of complication, not stated as uncontrolled End stage renal disease (H) End stage renal disease documented in this encounter Care Teams Store Clerk Relationship Specialty Start Date End Date Toña Jones MD PCP - General Nephrology 11/25/11 01/01/14 documented as of this encounter
--- OUTSIDE RECORDS SUMMARY | 2022-06-30 11:06 | XMS_ITS | Encounter Summary ---
:1950 Author Organization [place] Address [address] [facility] [place] [address] Care Team Providers Name Role Phone Toña Jones MD Primary Care Provider Ingrid Santana RN Unavailable Unavailable Momo Forbes Primary Care Provider Encounter Details Date Type Department Care Team Description 08/30/2011 Historic Results [facility] - [...] CARDIAC - HIM SCAN 08/30/2011 8:28 AM UNDERWRITING OPERATIONS MANAGER - ARCHIVE ECHO CARDIAC - HIM SCAN 08/30/2011 8:27 AM UNDERWRITING OPERATIONS MANAGER - ARCHIVE documented in this encounter Results EKG CARDIAC - HIM SCAN - ARCHIVE (08/30/2011 8:28 AM UNDERWRITING OPERATIONS MANAGER) Specimen (Source) Anatomical Location Collection Method / Collectio n Time Received Time / Laterality Volume Narrative This result has an attachment that is no t available. Gich Provider ECG ORDERABLES ECHO CARDIAC - HIM SCAN - ARCHIVE (08/30/2011 8:27 AM UNDERWRITING OPERATIONS MANAGER) Anatomical Region Laterality Modality Echocardiography Specimen (Source) Anatomical Location Collection Method / Collectio n Time Received Time / Laterality Volume Narrative This result has an attachment that is no t available. Marcela Provider CV ECHO ORDERABLES documented in this encounter Visit Diagnoses Not on filedocumented in this encounter Care Teams Roller Skate Assembler Relationship Specialty Start Date End Date Toña Jones MD PCP - General Nephrology 11/25/11 01/01/14 Momo Forbes PCP - General Family Practice 01/02/14 [facility] [address] [place] [address] Ingrid Santana, RN Registered Nurse Transplant 02/10/12 documented as of this encounter
--- OUTSIDE RECORDS SUMMARY | 2022-06-30 11:06 | XMS_ITS | Encounter Summary ---
:1950 Author Organization [place] Address [facility] [place] [address] Care Team Providers Name Role Phone Toña Jones MD Primary Care Provider Reason for Visit Reason Comments Transplant Evaluation Kidney transplant evaluation - Diabetes, End Stage Renal Disease Encounter Details Date Type Department Care Team Description 02/08/2012 Office Visit The Transplant Edda Cardenas, Ty Blink, DM (diabetes 2nd Floor, Clinic 2A MD mellitus), type 2 (H) Tommy Wilburn (Primar y Dx) [address] [phone] Social History Tobacco Use Types Packs/Day Years [...] (willing/able to accept information): Yes Any cultural factors/hoahaoism beliefs that may influence understanding or compliance? [...] uncontrolled documented in this encounter Care Teams Assembly Machine Tender Relationship Specialty Start Date End Date Toña Jones MD PCP - General Nephrology 11/25/11 01/01/14 documented as of this encounter
--- OUTSIDE RECORDS SUMMARY | 2022-06-30 11:06 | XMS_ITS | Encounter Summary ---
:1950 Author Organization [place] Address [address] [facility] [place] [address] Care Team Providers Name Role Phone Toña [...] filedocumented in this encounter Care Teams Product Manager Financial Services Relationship Specialty Start Date End Date Toña Jones MD PCP - General Nephrology 11/25/11 01/01/14 Momo Forbes PCP - General Family Practice 01/02/14 [facility] [address] [place] [address] Ingrid Santana, RN Registered Nurse Transplant 02/10/12 documented as of this encounter
--- OUTSIDE RECORDS SUMMARY | 2022-06-30 11:06 | XMS_ITS | Encounter Summary ---
:1950 Author Organization [place] Address [address] [facility] [place] [address] Care Team Providers Name Role Phone Toña Jones MD Primary Care Provider Ingrid Santana RN Unavailable Unavailable Encounter Details Date Type Department Care Team Description 12/07/2011 Orders Only Nephrology Chucho Joshi MD Dialysis patient (H) 2nd Floor, Clinic 2A [address] (Primary Dx) Tommy Ruiz[address] [place] [address] [place], [place] [phone] (Wo rk) [address] [phone] Social History Tobacco Use Types Packs/Day Years Used Date Smoking Tobacco: Never Assessed Sex Assigned at Date Recorded Not on file documented as of this encounter Plan of Treatment Not on filedocumented as of this encounter Visit Diagnoses Diagnosis Dialysis patient (H) - Primary Renal dialysis status documented in this encounter Care Teams Grinding Wheel Facer Relationship Specialty Start Date End Date Toña Jones MD PCP - General Nephrology 11/25/11 01/01/14 Ingrid Santana RN Registered Nurse Transplant 02/10/12 documented as of this encounter
--- OUTSIDE RECORDS SUMMARY | 2022-06-30 11:06 | XMS_ITS | Encounter Summary ---
:1950 Author Organization [place] Address [address] [place] [address] Care Team Providers Name Role Phone Toña Jones MD Primary Care Provider Ingrid Santana RN Unavailable Unavailable Encounter Details Date Type Department Care Team Description 02/10/2012 Orders Only [facility] Anita Joshi MD Diabetes mellitus, type 2 (H); Clinic Imaging [address] [place] [address] End stage renal disease (H) [facility] [address] [place] [address] 1st Floor, Clinic [address]D [id number] [place] [address] [address] Social History Tobacco Use Types [...] disease documented in this encounter Care Teams Social And Human Services Assistant Relationship Specialty Start Date End Date Toañ Jones MD PCP - General Nephrology 11/25/11 01/01/14 Ingrid Santana RN Registered Nurse Transplant 02/10/12 documented as of this encounter
--- OUTSIDE RECORDS SUMMARY | 2022-06-30 11:06 | XMS_ITS | Encounter Summary ---
:1950 Author Organization [place] Address [address] [place] [address] Care Team Providers Name Role Phone Toña Jones MD Primary Care Provider Encounter Details Date Type Department Care Team Description 02/08/[address] [facility] Jesus Cardenas MD Patient Learning Bobby Angela Leon, BOGDAN [address] [facility] [address] [place] [address] [id number] [address] [place] [address] Social History Tobacco Use Types Packs/Day Years [...] tablet by mouth 0 02/18/2014 daily. B vbvohri-E-arlqr acid Take 1 capsule by mouth 0 [...] filedocumented in this encounter Care Teams Ux Information Architect Relationship Specialty Start Date End Date Toña Jones MD PCP - General Nephrology 11/25/11 01/01/14 documented as of this encounter
--- OUTSIDE RECORDS SUMMARY | 2022-06-30 11:06 | XMS_ITS | Encounter Summary ---
:1950 Author Organization [place] Address [address] [facility] [place] [address] Care Team Providers Name Role Phone Toña Jones MD Primary Care Provider Ingrid Santana RN Unavailable Unavailable Reason for Visit Reason Comments Transplant Evaluation kidney Encounter Details Date Type Department Care Team Description 02/10/2012 Office Visit Nephrology Darian Joshi MD [address] [facility] [address] [place], [place] [id number] Pre-transplant 2nd Floor, Clinic 2A Joseph Quintana MD 717 [facility] 353 [facility] [address] [place], [place] [address] evaluation for Sanders Mimaalyssa chronic kidney Building disease (Primary Dx) [address] [place] [phone] Social History Tobacco Use Types Packs/Day Years [...] unit: [facility] Primary Massotherapist: Dr. 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 Yes Reported, Patient B mkpbite-Y-dkjbc acid (NEPHROCAPS) 1 MG capsule Take 1 [...] NEG Ketones Urine Negative NEG (mg/dL) Specific [place] Urine 1.010 1.003 - 1.035 Blood Urine [...] Report Value: Patient Name: ELINOR GUTHRIE MR#: [id number] Specimen #: [id number] Collected: 02/08/2012 07:07 Received: 02/08/2012 09:00 Reported: 02/11/2012 14:03 Ordering Phy(s): DARIAN JOSHI TEST(S) REQUESTED: A: Factor 5 Leiden and Factor 2 by PCR B: DNA Isolation, High purity extraction SPECIMEN DESCRIPTION: Blood METHODOLOGY: The regions of genomic DNA containing the V2905P Factor 5 gene mutation (Factor V Leiden) and the Factor 2(Prothrombin Z60327R) gene mutation were simultaneously amplified using the polymerase chain reaction. The amplified products were digested with restriction endonuclease TaqI and products were analyzed by gel electrophoresis. RESULTS: FACTOR 5-LEIDEN RESULTS: Mutation analyzed: 1691G>A Factor 5 Mutation Interpretation: ABSENT Factor 5 Mutation genotype: G/G FACTOR 2/PROTHROMBIN RESULTS: Mutation analyzed: 54589F>A Factor 2 Mutation Interpretation: ABSENT Factor 2 Mutation genotype: G/G INTERPRETATION: The patient is negative for the Factor 5 mutation and negative for the Factor 2 mutation. This test was developed and its performance determined by the [facility]. It has not [...] By: Liliya Stone MD TESTING LAB LOCATION: [address] [address] COLLECTION SITE: Client: [facility] HLA LUKASZ CLASS I SINGLE ANTIGEN [...] of an antiphospholipid syndrome, recommend anticardiolipin and xyzu-2-jnabydgfltup (IgG and IgM) antibody tests. Dee Duenas M.D. [phone] 02-09-2012. APTT'S: Seconds Reagent = Stago LS [...] Range Ventricular Rate 60 Atrial Rate 60 NM Interval 186 QRS Duration 104 QT 440 QTc 440 P [place] 36 R AXIS 0 T [place] 36 Interpretation ECG Sinus rhythm Interpretation ECG [...] Function Test Value: Name: ELINOR GUTHRIE ID: [id number] Doctor: DONYA THOMAS Height: 72.00 in Age: [...] INTERPRETATION: The FVC, FEV1, FEV1/FVC ratio and NZH49-68% are within normal limits. The inspiratory flow [...] 02/10/2012 10:00 AM CDT >> [place] FAUSTIN [facility] Feb 10, 2012 9:54 AM Took vitals, cc, reviewed meds and allergies documented in this encounter Plan of Treatment Not on filedocumented as of this encounter Visit Diagnoses Diagnosis Pre-transplant evaluation for chronic ki dney disease - Primary Other specified pre-operative examinatio n documented in this encounter Care Teams Documentation Nurse Relationship Specialty Start Date End Date Toña Jones MD PCP - General Nephrology 11/25/11 01/01/14 Ingrid Santana, RN Registered Nurse Transplant 02/10/12 documented as of this encounter
--- OUTSIDE RECORDS SUMMARY | 2022-06-30 11:06 | XMS_ITS | Encounter Summary ---
:1950 Author Organization [place] Address [address] [place] [address] Care Team Providers Name Role Phone Toña Jones MD Primary Care Provider Reason for Visit Reason Onset Date Comments Pre Visit Planning - Done 02/07/2012 Consult prior to kidney transplant, needs EKG please. Encounter Details Date Type Department Care Team Description 02/07/2012 PRE VISIT [facility] Barbara Bradley Pre Visit Planning - Physicians Orestes Licona MD Done (Consult prior to Sanders Wang[facility]steen [address] kidney transplant, [place] [address] needs EKG please.) 4th Floor, Clinic [address]B [address] [address] Social History Tobacco Use Types [...] on filedocumented in this encounter Care Teams Appeals And Generalist Clerk Relationship Specialty Start Date End Date Toña Jones MD PCP - General Nephrology 11/25/11 01/01/14 documented as of this encounter
--- OUTSIDE RECORDS SUMMARY | 2022-06-30 11:06 | XMS_ITS | Encounter Summary ---
:1950 Author Organization [place] Address [facility] [place] [place] [address] Care Team Providers Name Role Phone Toña Jones MD Primary Care Provider Reason for Referral - Closed Specialty Diagnoses / Procedures Referred By Contact Refer red To Contact Diagnoses Diabetes mellitus, type 2 (H) End stage renal disease (H) [facility] Renal 2nd Floor, [place] [phone] Referral ID Status Reason Start Date Expiration Date Visits Requ ested Visits Authorized [id number] Closed 12/02/2011 05/30/2012 1 1 - Closed Specialty Diagnoses / Procedures Referred By Contact Refer red To Contact Diagnoses Diabetes mellitus, type 2 (H) End stage renal disease (H) [facility] Renal [facility] Floor, [place] [phone] Referral ID Status Reason Start Date Expiration Date Visits Requ ested Visits Authorized [id number] Closed 12/02/2011 05/30/2012 1 1 - Closed Specialty Diagnoses / Procedures Referred By Contact Refer red To Contact Diagnoses Diabetes mellitus, type 2 (H) End stage renal disease (H) [facility] Renal 2nd Floor, [place] [phone] Referral ID Status Reason Start Date Expiration Date Visits Requ ested Visits Authorized [id number] Closed 12/02/2011 05/30/2012 1 1 - Closed Specialty Diagnoses / Procedures Referred By Contact Refer red To Contact Diagnoses Diabetes mellitus, type 2 (H) End stage renal disease (H) [facility] Renal 2nd Floor, Clinic 2A [place] [phone] Referral ID Status Reason Start Date Expiration Date Visits Requ ested Visits Authorized [id number] Closed 12/02/2011 05/30/2012 1 1 - Closed Specialty Diagnoses / Procedures Referred By Contact Refer red To Contact Diagnoses Diabetes mellitus, type 2 (H) End stage renal disease (H) [facility] Renal [facility] Floor, [place] [phone] Referral ID Status Reason Start Date Expiration Date Visits Requ ested Visits Authorized [id number] Closed 12/02/2011 05/30/2012 1 1 - Closed Specialty Diagnoses / Procedures Referred By Contact Refer red To Contact Diagnoses Diabetes mellitus, type 2 (H) End stage renal disease (H) [facility] Renal [facility] Floor, [place] [phone] Referral ID Status Reason Start Date Expiration Date Visits Requ ested Visits Authorized [id number] Closed 12/02/2011 05/30/2012 1 1 - Closed Specialty Diagnoses / Procedures Referred By Contact Refer red To Contact Diagnoses Diabetes mellitus, type 2 (H) End stage renal disease (H) [facility] Renal 2nd Floor, Clinic 2A [address] [phone] Referral ID Status Reason Start Date Expiration Date Visits Requ ested Visits Authorized [id number] Closed 12/02/2011 05/30/2012 1 1 - Closed Specialty Diagnoses / Procedures Referred By Contact Refer red To Contact Diagnoses Diabetes mellitus, type 2 (H) End stage renal disease (H) [facility] Renal 2nd Floor, Clinic 2A [address] [phone] Referral ID Status Reason Start Date Expiration Date Visits Requ ested Visits Authorized [id number] Closed 12/02/2011 05/30/2012 1 1 - Closed Specialty Diagnoses / Procedures Referred By Contact Refer red To Contact Diagnoses Diabetes mellitus, type 2 (H) End stage renal disease (H) [facility] Renal 2nd Floor, Clinic 2A [address] [phone] Referral ID Status Reason Start Date Expiration Date Visits Requ ested Visits Authorized [id number] Closed 12/02/2011 05/30/2012 1 1 Encounter Details Date Type Department Care Team Description 12/02/2011 Orders Only Nephrology Ingrid Santana, Diabetes mellitus, type 2 (H ); 2nd Floor, Clinic 2A RN End stage renal disease (H) [address] [phone] Social History Tobacco Use [...] 2 (H) End stage renal disease (H) MARBLE SETTER Referral Routine Diabetes mellitus, Ordered: 12/02/2011 REFERRAL type 2 (H) End stage renal disease (H) NEPHROLOGY ADULT REFERRAL Referral Routine Diabetes mellit us, Ordered: 12/02/2011 type 2 (H) End stage renal disease (H) GENERAL SURG ADULT Referral Routine Diabetes mellitus, Ord ered: 12/02/2011 REFERRAL type 2 (H) End stage renal disease (H) SUGAR CHIPPER MACHINE OPERATOR REFERRAL Referral Routine Diabetes mellitu s, [...] disease documented in this encounter Care Teams Forming Process Worker Relationship Specialty Start Date End Date Toña Jones MD PCP - General Nephrology 11/25/11 01/01/14 documented as of this encounter
--- OUTSIDE RECORDS SUMMARY | 2022-06-30 11:06 | XMS_ITS | Encounter Summary ---
:1950 Author Organization [place] Address [address] [facility] [address] Care Team Providers Name Role Phone Toña Jones MD Primary Care Provider Blayne Santana RN Unavailable Unavailable Reason for Visit Reason Comments Transplant Evaluation Encounter Details Date Type Department Care Team Description 02/08/2012 Office Visit Transplant Surgery Jesus Cardenas, DM (di abetes mellitus), type 2 (H); Clinic End stage renal disease (H) 2nd Floor, Clinic [address]A [address] [phone] Social History Tobacco Use Types Packs/Day Years [...] from the original note were not included. 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 Smoking status: [...] Take 1 tablet by mouth daily. B xmeachl-F-erzop acid (NEPHROCAPS) 1 MG capsule Take 1 [...] Test 02/08/12 0725 INR 1.11 F2MAR -- [id number] -- Lipid Profile: Cholesterol Date Value Range [...] 09, 2012 3:21 PM Pre Abdominal Organ Assisted Living Administrator Evaluation Note: present: Dr. Jesus Cardenas Attendees: self Type of transplant: kidney Required Topic(s) Discussed: Evaluation notification document, SRTR data, Multiple wait list brochure, MARKETING ASSISTANT, Evaluation/approval process, Selection committee process, Wait list [...] spent with patient: 15 minutes -- Nurse Assisted Living Administrator Pager [phone] BLAYNE SANTANA -- Nurse Assisted Living Administrator Pager [phone] >> Lena Sánchez RN santino Feb 08, [...] disease documented in this encounter Care Teams Meat Slicer Relationship Specialty Start Date End Date Toña Jones MD PCP - General Nephrology 11/25/11 01/01/14 Blayne Santana, RN Registered Nurse Transplant 02/10/12 documented as of this encounter
--- OUTSIDE RECORDS SUMMARY | 2022-06-30 11:06 | XMS_ITS | Encounter Summary ---
:1950 Author Organization [place] Address [address] [place] [address] Care Team Providers Name Role Phone Toña Jones MD Primary Care Provider Ingrid Santana RN Unavailable Unavailable Encounter Details Date Type Department Care Team Description 02/10/2012 Hospital Encounter [facility] Jesus Cardenas MD Nutrition Services Martina Harley, RD [address] [facility] [address] [place] [address] 420 [facility] Joseph Quintana MD 717 [facility] 353 [facility] [address] [place] [address] 84 [place] [address] Social History Tobacco Use Types Packs/Day Years [...] tablet by mouth 0 02/18/2014 daily. B msdpxsx-G-famfn acid Take 1 capsule by mouth 0 [...] Mcneill, RD - 02/10/2012 8:47 AM CDT [facility] Medical Nutrition Therapy Visit Type: [...] filedocumented in this encounter Care Teams News Department Intern Relationship Specialty Start Date End Date Toña Jones MD PCP - General Nephrology 11/25/11 01/01/14 Ingrid Santana RN Registered Nurse Transplant 02/10/12 documented as of this encounter
--- OUTSIDE RECORDS SUMMARY | 2022-06-30 11:06 | XMS_ITS | Encounter Summary ---
:1950 Author Organization [place] Address [address] [place] [address] Care Team Providers Name Role Phone Toña [...] on filedocumented in this encounter Care Teams Used Car Make Ready Mechanic Relationship Specialty Start Date End Date Toña Jones MD PCP - General Nephrology 11/25/11 01/01/14 Momo Forbes PCP - General Family Practice 01/02/14 [facility] [address] [place] [address] Ingrid Santana, RN Registered Nurse Transplant 02/10/12 documented as of this encounter
--- OUTSIDE RECORDS SUMMARY | 2022-06-30 11:06 | XMS_ITS | Encounter Summary ---
:1950 Author Organization [place] Address [address] [place] [address] Care Team Providers Name Role Phone Toña Jones MD Primary Care Provider Ingrid Santana RN Unavailable Unavailable Encounter Details Date Type Department Care Team Description 02/08/2012 Results Only LABORATORY RESULTS Jeff Joshi MD [address] [facility] [address] [place] [address] (Wo rk) Social History Tobacco [...] II Single Antigen (02/08/2012 7:07 AM CDT) [facility] gist Method Time Signature SA2 [...] e Number [facility] LABORATORY Immunology/Histocompatabil [place], [place] [address] [facility] [address] Building, Room 3-580 HISTOTRAC documented in this encounter Visit Diagnoses Not on filedocumented in this encounter Care Teams Cash Management Associate Relationship Specialty Start Date End Date Toña Jones MD PCP - General Nephrology 11/25/11 01/01/14 Ingrid Santana, RN Registered Nurse Transplant 02/10/12 documented as of this encounter
--- OUTSIDE RECORDS SUMMARY | 2022-06-30 11:06 | XMS_ITS | Encounter Summary ---
:1950 Author Organization [place] Address [address] [place] [address] Care Team Providers Name Role Phone Toña Jones MD Primary Care Provider Ingrid Santana RN Unavailable Unavailable Encounter Details Date Type Department Care Team Description 02/08/2012 Results Only LABORATORY RESULTS Jeff Joshi MD [address] [place] [address] [place] [address] (Wo rk) Social History Tobacco [...] Single Antigen (02/08/2012 7:07 AM CDT) [facility] gist Method Time Signature SA1 Test [...] e Number [facility] LABORATORY Immunology/Histocompatabil [place], [place] [address] [facility] [address] Building, Room 3-580 HISTOTRAC documented in this encounter Visit Diagnoses Not on filedocumented in this encounter Care Teams Braid Folder Relationship Specialty Start Date End Date Toña Jones MD PCP - General Nephrology 11/25/11 01/01/14 Ingrid Santana, RN Registered Nurse Transplant 02/10/12 documented as of this encounter
--- OUTSIDE RECORDS SUMMARY | 2022-06-30 11:06 | XMS_ITS | Encounter Summary ---
:1950 Author Organization [place] Address [address] [facility] [place] [address] Care Team Providers Name Role Phone Toña Jones MD Primary Care Provider Ingrid Santana RN Unavailable Unavailable Reason for Visit Reason Comments Heart Problem Consult prior to kidney proctor splant, needs EKG please. Encounter Details Date Type Department Care Team Description 02/10/2012 Office Visit Justice Barbara Bradley Unspecified es sential hypertension; [facility] Chance Licona Pre-operative clearance Heart [address] [place] [address] Building [phone] 4th Floor, Clinic 4B (Work) [address] [address] Social History Tobacco Use Types [...] Stay Well and Call Maribel Nicole RN [phone] with any questions or concerns. You are scheduled for an Adenosine Stress Test 02/15/2012: Please check into the [facility] Waiting Room at 12:15pm for this test. [...] and you need to reschedule, please call [phone]. January 2012Tuesday 1 2 3 4 5 6 7 8 9 10 11 12 13 14 15 16 17 18 19 RUST NEW 6:30 AM (30 min.) Evaluation, [facility] The Transplant [facility] FULL PULMONARY FUNCTION 8:00 AM (60 min.) 2, [facility] Pfl [place] Pulmonary Function Laboratory RADIOLOGY 8:05 AM (10 min.) Uicxr2 R[facility] Diagnostic Imaging [facility] PREP KIDNEY/PANCREAS TX 9:00 AM (120 min.) Angela Lopez RN [facility], Patient Learning Center RUST TRANSPLANT CLASS KIDNEY 9:00 AM (90 min.) Class, [facility] Transplant The Transplant Center [facility] CORRECTIONAL OFFICER CAPTAIN 11:00 AM (30 min.) Coordinator, [facility] Care [facility] Transplant [facility] PRE-TX KIDNEY EVAL 11:00 AM (30 min.) Jesus Thomas MD Transplant Surgery LAB 11:30 AM (15 min.) Pwb, Op Lab [facility], Lab RADIOLOGY 1:30 PM (55 min.) Uecvc1 [facility], Echocardiography 20 21 RUST RETURN 7:00 AM (15 min.) Evaluation, [facility] The Transplant Center RADIOLOGY 7:00 AM (60 min.) Uicusr2 [facility] Diagnostic Imaging CONSULT HOD 8:00 AM (60 min.) Martina Mcneill RD [facility] [place], Nutrition Services RUST TX SOCIAL WORK 9:00 AM (60 min.) 2, [facility] Tx Consult Room The Transplant Center RUST PRE-TX KIDNEY EVAL 10:00 AM (60 min.) Joseph Quintana MD Nephrology RUST PANCREAS-KIDNEY TX W/U 11:30 AM (30 min.) Barbara Bradley MD [facility] Physicians Heart 22 23 24 25 26 RADIOLOGY 12:30 PM (15 min.) Uninj [facility], Nuclear Medicine RADIOLOGY 1:15 PM (20 min.) Unr1 [facility], Nuclear Medicine RADIOLOGY 1:40 PM (30 min.) [facility] [place] ELECTROCARDIOLOGY RADIOLOGY 3:10 PM (20 min.) [address], Nuclear Medicine 27 28 29 20 [...] On HD since Aug 2011. No past AK, stress tests or coronary angiogorams. No chest [...] 1 tablet by mouth daily. ??? 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 Perez MD consumer loan specialist. Divisions of Cardiology [place], [place] CC Patient Care Team: Toña Jones MD as PCP - General (Nephrology) Ingrid Santana, RN as Registered Nurse (Transplant) JESUS THOMAS documented in this encounter Plan of Treatment Not on filedocumented as of this encounter Visit Diagnoses Diagnosis Unspecified essential hypertension Pre-operative clearance Preoperative examination, unspecified documented in this encounter Care Teams Registered Nurse Relationship Specialty Start Date End Date Toña Jones MD PCP - General Nephrology 11/25/11 01/01/14 Ingrid Santana, RN Registered Nurse Transplant 02/10/12 documented as of this encounter
--- OUTSIDE RECORDS SUMMARY | 2022-06-30 11:06 | XMS_ITS | Encounter Summary ---
:1950 Author Organization [place] Address [address] [place] [address]. [place] [address] Care Team Providers Name Role Phone Toña Jones MD Primary Care Provider Ingrid Santana RN Unavailable Unavailable Momo Forbes Primary Care Provider Encounter Details Date Type Department Care Team Description 01/20/2012 Historic Results [facility] Provider, MD Marcela Social History Tobacco [...] filedocumented in this encounter Care Teams Press Operator Meat Relationship Specialty Start Date End Date Toña Jones MD PCP - General Nephrology 11/25/11 01/01/14 Momo Forbes PCP - General Family Practice 01/02/[address] [address] Siers, Ingrid A, RN Registered Nurse Transplant 02/10/12 documented as of this encounter
--- OUTSIDE RECORDS SUMMARY | 2022-06-30 11:06 | XMS_ITS | Encounter Summary ---
:1950 Author Organization [place] Address [address] [place] [address] Care Team Providers Name Role Phone Toña Jones MD Primary Care Provider Encounter Details Date Type Department Care Team Description 02/08/2012 Orders Only [facility] Thomas, Ty Blink, End sta ge kidney Pulmonary Function MD disease ( H) (Primary Laboratory Dx) 6th Floor [address] [place] [address] Social History Tobacco Use [...] Lab Testing (Generic) (02/08/2012 8:35 AM CDT) [facility] Method Time Signature Pulmonary COPATH Function Test Name: ? ELINOR GUTHRIE ? ID: ?[id number] Doctor: ?JESUS THOMAS ?Height: ?72.00 in ? [...] INTERPRETATION: The FVC, FEV1, FEV1/FVC ratio and FOT09-99% are within normal limits. ??The inspiratory flow [...] disease documented in this encounter Care Teams Courtroom Reporter Relationship Specialty Start Date End Date Toña Jones MD PCP - General Nephrology 11/25/11 01/01/14 documented as of this encounter
--- OUTSIDE RECORDS SUMMARY | 2022-06-30 11:06 | XMS_ITS | Encounter Summary ---
:1950 Author Organization [place] Address [address] [place] [address]. [place] [address] Care Team Providers Name Role Phone Toña Jones MD Primary Care Provider Ingrid Santana RN Unavailable Unavailable Momo Forbes Primary Care Provider Encounter Details Date Type Department Care Team Description 05/12/2011 Historic Results [facility] Provider, MD Marcela Social History Tobacco [...] filedocumented in this encounter Care Teams Tie Knitter Helper Relationship Specialty Start Date End Date Toña Jones MD PCP - General Nephrology 11/25/11 01/01/14 Momo Forbes PCP - General Family Practice 01/02/[address] [address] Siers, Ingrid A, RN Registered Nurse Transplant 02/10/12 documented as of this encounter
--- OUTSIDE RECORDS SUMMARY | 2022-06-30 11:06 | XMS_ITS | Encounter Summary ---
:1950 Author Organization [place] Address [address] [facility] [place] [address] Care Team Providers Name Role Phone Toña [...] 2 (H) Tommy Wilburn (Primar y Dx) [address] [phone] Social History Tobacco Use Types Packs/Day Years [...] this time. Patient to follow up with medical billing coordinator. documented in this encounter Plan of Treatment Not on filedocumented as of this encounter Visit Diagnoses Diagnosis DM (diabetes mellitus), type 2 (H) - Ana ashley Type II or unspecified type diabetes aung litus without mention of complication, not stated as uncontrolled documented in this encounter Care Teams Electronic Lab Technician Relationship Specialty Start Date End Date Toña Jones MD PCP - General Nephrology 11/25/11 01/01/14 Ingrid Santana RN Registered Nurse Transplant 02/10/12 documented as of this encounter
--- OUTSIDE RECORDS SUMMARY | 2022-06-30 11:06 | XMS_ITS | Encounter Summary ---
:1950 Author Organization [place] Address [address] [place] [address] Care Team Providers Name Role Phone Toña Jones MD Primary Care Provider Reason for Visit (Routine) - Closed Specialty Diagnoses / Procedures Referred By Contact Refer red To Contact Cardiology Diagnoses ECHO CLINIC COMPLETE ADULT Procedure Notes: DIABETES MELLITUS, TYPE 2,END STAGE RENAL DISEASE,Transplant eval,Performing Location?->[facility] [facility] Echocardiography Procedures RADIOLOGY [address] [place] [address] Phone: Referral ID Status Reason Start Date Expiration Date Visits Requ ested Visits Authorized [id number] Closed 01/21/2012 01/20/2013 1 1 Encounter Details Date Type Department Care Team Description 02/08/2012 [facility] Hass an, MD [address] [facility] [address] [place] [address] Diabetes mellitus, type 2 (H); Echocardiography Rajat German MD [address] [facility] [address] [place] [address] End stage renal disease (H) [address] [place] [address] Social History Tobacco Use Types [...] tablet by mouth 0 02/18/2014 daily. B evladwr-Y-gvpxs acid Take 1 capsule by mouth 0 [...] - Clinic (PWB) (02/08/2012 1:13 PM CDT) [facility] Method Time Signature [facility] RADIOLOGY Interpretation Summary [...] disease documented in this encounter Care Teams Housekeeping Assistant Relationship Specialty Start Date End Date Toña Jones MD PCP - General Nephrology 11/25/11 01/01/14 documented as of this encounter
--- OUTSIDE RECORDS SUMMARY | 2022-06-30 11:06 | XMS_ITS | Encounter Summary ---
:1950 Author Organization [place] Address [address] [place] [address] Care Team Providers Name Role Phone Toña Jones MD Primary Care Provider Ingrid Santana RN Unavailable Unavailable Encounter Details Date Type Department Care Team Description 02/08/2012 Orders Only [facility] Jesus Cardenas Di abetes mellitus, type 2 (H); [facility] Gordo oneal MD End stage renal disease (H); [address] [place] [address] Social History Tobacco Use Types Packs/Day Years [...] Results ABO type (02/08/2012 1:52 PM CDT) [facility] Method Time Signature ABO A [facility] RH(D) Pos [facility] Specimen 02/11/2012 [facility] Expires [facility] Specimen Anatomical Collection Method Collection Time Receive d Time (Source) Location / / Volume Laterality Blood specimen 02/08/2012 1:52 PM 012 1:54 (specimen) CDT PM CDT Chucho Joshi MD LAB - BLOOD BANK TEST ORDER Performing Organization Address City/State/ZIP Code Phon e Number [id number] [place] [address] LABS EKG 12-lead, tracing only (02/08/2012 7:30 AM CDT) [facility] Method Time Signature Ventricular Rate 60 BPM RADIOLOGY RESULTS Atrial Rate [address] Interval 186 ms RADIOLOGY RESULTS QRS Duration 104 ms RADIOLOGY RESULTS QT 440 ms RADIOLOGY RESULTS QTc 440 ms RADIOLOGY RESULTS P [place] 36 degrees RADIOLOGY RESULTS R AXIS 0 degrees RADIOLOGY RESULTS T [place] 36 degrees RADIOLOGY RESULTS Interpretation Sinus rhythm [...] DEFINED documented in this encounter Care Teams Plaster Caster Relationship Specialty Start Date End Date Toña Jones MD PCP - General Nephrology 11/25/11 01/01/14 Ingrid Santana, RN Registered Nurse Transplant 02/10/12 documented as of this encounter
--- OUTSIDE RECORDS SUMMARY | 2022-06-30 11:06 | XMS_ITS | Encounter Summary ---
:1950 Author Organization [place] Address [address] [place] [address] Care Team Providers Name Role Phone Toña Jones MD Primary Care Provider Ingrid Santana RN Unavailable Unavailable Encounter Details Date Type Department Care Team Description 02/08/2012 Results Only LABORATORY RESULTS Jeff Joshi MD [address] [facility] [address] [place] [address] (Wo rk) Social History [...] Phon e Number [facility] Immunology/Histocompatabil [place], [place] [address] ity ealth [facility] [address] [facility] [address] Building, Room 3-580 HISTOTRAC documented in this encounter Visit Diagnoses Not on filedocumented in this encounter Care Teams Employment Legal Assistant Relationship Specialty Start Date End Date Toña Jones MD PCP - General Nephrology 11/25/11 01/01/14 Ingrid Santana, RN Registered Nurse Transplant 02/10/12 documented as of this encounter
--- OUTSIDE RECORDS SUMMARY | 2022-06-30 11:06 | XMS_ITS | Encounter Summary ---
:1950 Author Organization [place] Address [address] [place] [address] Care Team Providers Name Role Phone Toña Jones MD Primary Care Provider Ingrid Santana RN Unavailable Unavailable Encounter Details Date Type Department Care Team Description 02/08/2012 Results Only LABORATORY RESULTS Jeff Joshi MD [address] [facility] [address] [place] [address] (Wo rk) Social History Tobacco [...] Phon e Number [facility] Immunology/Histocompatabil [place], [place] [address] ity [facility] [address] Building, Room 3-580 HISTOTRAC documented in this encounter Visit Diagnoses Not on filedocumented in this encounter Care Teams Stogy Maker Relationship Specialty Start Date End Date Toña Jones MD PCP - General Nephrology 11/25/11 01/01/14 Ingrid Santana, RN Registered Nurse Transplant 02/10/12 documented as of this encounter
--- OUTSIDE RECORDS SUMMARY | 2022-06-30 11:06 | XMS_ITS | Encounter Summary ---
:1950 Author Organization [place] Address [address] [place] [address] Care Team Providers Name Role Phone Toña Jones MD Primary Care Provider Reason for Visit Reason Onset Date Comments Patient Reminder 02/01/2012 Encounter Details Date Type Department Care Team Description 02/01/2012 PRE VISIT Nephrology Joseph Quintana, Patient Reminder 2nd Floor, Clinic 2A MD Tommy Wilburn [address] [place] [address] [address] [place], [place] [address] [place] [address] (Wo rk) [address] [phone] Social History Tobacco Use Types Packs/Day Years [...] filedocumented in this encounter Care Teams Leather Fitter Relationship Specialty Start Date End Date Toña Jones MD PCP - General Nephrology 11/25/11 01/01/14 documented as of this encounter
--- OUTSIDE RECORDS SUMMARY | 2022-06-30 11:07 | XMS_ITS | Encounter Summary ---
:1950 Author Organization [place] Address [address] [place] [address]. [place] [address] Care Team Providers Name Role Phone Toña Jones MD Primary Care Provider Ingrid Santana RN Unavailable Unavailable Momo Forbes Primary Care Provider Encounter Details Date Type Department Care Team Description 05/25/2010 Historic Results [facility] Provider, MD Marcela Social History Tobacco [...] on filedocumented in this encounter Care Teams Ferry Operator Relationship Specialty Start Date End Date Toña Jones MD PCP - General Nephrology 11/25/11 01/01/14 Momo Forbes PCP - General Family Practice 01/02/[address] [address] Siers, Ingrid A, RN Registered Nurse Transplant 02/10/12 documented as of this encounter
--- OUTSIDE RECORDS SUMMARY | 2022-06-30 11:07 | XMS_ITS | Encounter Summary ---
:1950 Author Organization [place] Address [address] [facility] [place] [address] Care Team Providers Name Role Phone Toña [...] filedocumented in this encounter Care Teams Experimental Physicist Relationship Specialty Start Date End Date Toña Jones MD PCP - General Nephrology 11/25/11 01/01/14 Momo Forbes PCP - General Family Practice 01/02/14 [facility] [address] [place] [address] Ingrid Santana, RN Registered Nurse Transplant 02/10/12 documented as of this encounter
--- OUTSIDE RECORDS SUMMARY | 2022-06-30 11:07 | XMS_ITS | Encounter Summary ---
:1950 Author Organization [place] Address [address] [place] [address] Care Team Providers Name Role Phone Unavailable Primary Care Provider Unavailable Encounter Details Date Type Department Care Team Description 07/30/2009 Results [facility] Results [address] [place] [address] [place] [id number] Social History Tobacco Use Types Packs/Day Years Used Date Smoking Tobacco: Never Assessed Sex Assigned at Date Recorded Not on file documented as of this encounter Plan of Treatment Not on filedocumented as of this encounter Procedures Procedure Name Priority Date/Time Associated Diagnosis [facility] RT DUPLEX Routine 07/30/2009 12:32 PM Results for this EXTREM VENOUS,UNI CUTTER IN procedure are in OR LTD the results section. documented in this encounter Results RT DUPLEX EXTREM VENOUS,UNI OR LTD (07/30/2009 12:32 PM CUTTER IN) Anatomical Region Laterality Modality Other Specimen (Source) Anatomical Collection Method Collection Time Re ceived Time Location / / Volume Laterality 07/30/2009 12:32 PM CUTTER IN Impressions 07/30/2009 4:21 PM CUTTER IN ULTRASOUND VENOUS LOWER EXTREMITY UNILAT ERAL RIGHT [...]
--- OUTSIDE RECORDS SUMMARY | 2022-06-30 11:07 | XMS_ITS | Encounter Summary ---
:1950 Author Organization [place] Address [address] [place] [address]. [place] [address] Care Team Providers Name Role Phone Toña Jones MD Primary Care Provider Ingrid Santana RN Unavailable Unavailable Momo Forbes Primary Care Provider Encounter Details Date Type Department Care Team Description 01/02/2008 Historic Results [facility] Provider, MD Marcela Social History Tobacco [...] filedocumented in this encounter Care Teams Glass Technician Relationship Specialty Start Date End Date Toña Jones MD PCP - General Nephrology 11/25/11 01/01/14 Momo Forbes PCP - General Family Practice 01/02/[address] [address] Siers, Ingrid A, RN Registered Nurse Transplant 02/10/12 documented as of this encounter
--- OUTSIDE RECORDS SUMMARY | 2022-06-30 11:07 | XMS_ITS | Encounter Summary ---
:1950 Author Organization [place] Address [address] [facility] [place] [address] Care Team Providers Name Role Phone Toña [...] - HIM SCAN - 11/02/2005 8:27 AM MOTORCYCLE FABRICATOR ARCHIVE LAB RESULT - HIM SCAN - 11/02/2005 8:25 AM MOTORCYCLE FABRICATOR ARCHIVE documented in this encounter Results LAB RESULT - HIM SCAN - ARCHIVE (11/02/2005 8:27 AM MOTORCYCLE FABRICATOR) Specimen (Source) Anatomical Location Collection Method / Collectio n Time Received Time / Laterality Volume Narrative This result has an attachment that is no t available. Marcela Provider LAB - BLOOD ORDERABLES LAB RESULT - HIM SCAN - ARCHIVE (11/02/2005 8:25 AM MOTORCYCLE FABRICATOR) Specimen (Source) Anatomical Location Collection Method / Collectio n Time Received Time / Laterality Volume Narrative This result has an attachment that is no t available. Marcela Provider LAB - BLOOD ORDERABLES documented in this encounter Visit Diagnoses Not on filedocumented in this encounter Care Teams Wind Science And Planning Relationship Specialty Start Date End Date Toña Jones MD PCP - General Nephrology 11/25/11 01/01/14 Momo Forbes PCP - General Family Practice 01/02/[address] [address] Ingrid Santana, RN Registered Nurse Transplant 02/10/12 documented as of this encounter
--- OUTSIDE RECORDS SUMMARY | 2022-06-30 11:07 | XMS_ITS | Encounter Summary ---
:1950 Author Organization [place] Address [address] [place] [address]. [place] [address] Care Team Providers Name Role Phone Toña Jones MD Primary Care Provider Ingrid Santana RN Unavailable Unavailable Momo Forbes Primary Care Provider Encounter Details Date Type Department Care Team Description 12/13/[address] [facility] Provider, MD [...] on filedocumented in this encounter Care Teams Decommissioning Well Site Manager Relationship Specialty Start Date End Date Toña Jones MD PCP - General Nephrology 11/25/11 01/01/14 Momo Forbes PCP - General Family Practice 01/02/[address] [address] Siers, Ingrid A, RN Registered Nurse Transplant 02/10/12 documented as of this encounter
--- OUTSIDE RECORDS SUMMARY | 2022-06-30 11:07 | XMS_ITS | Encounter Summary ---
:1950 Author Organization [place] Address [facility] [place] [address] Care Team Providers Name Role Phone Toña Jones MD Primary Care Provider Ingrid Santana RN Unavailable Unavailable Momo Forbes Primary Care Provider Encounter Details Date Type Department Care Team Description 01/28/1998 [facility] Cesar Tejeda [facility] [address] [place], [place] [address] (Wo rk) Social History [...] PCP - General Family Practice 01/02/[address] [address] Ingrid Santana, RN Registered Nurse Transplant 02/10/12 documented as of this encounter
--- OUTSIDE RECORDS SUMMARY | 2022-06-30 11:07 | XMS_ITS | Encounter Summary ---
:1950 Author Organization [place] Address [address] [place] [address]. [place] [address] Care Team Providers Name Role Phone Toña Jones MD Primary Care Provider Ingrid Santana RN Unavailable Unavailable Momo Forbes Primary Care Provider Encounter Details Date Type Department Care Team Description 05/20/2010 Historic Results [facility] [...] filedocumented in this encounter Care Teams Animal Doctor Relationship Specialty Start Date End Date Toña Jones MD PCP - General Nephrology 11/25/11 01/01/14 Momo Forbes PCP - General Family Practice 01/02/[address] [address] Siers, Ingrid A, RN Registered Nurse Transplant 02/10/12 documented as of this encounter
--- OUTSIDE RECORDS SUMMARY | 2022-06-30 11:07 | XMS_ITS | Encounter Summary ---
:1950 Author Organization [place] Address [address] [place] [address]. [place] [address] Care Team Providers Name Role Phone Toña [...] on filedocumented in this encounter Care Teams Tempering Machine Operator Relationship Specialty Start Date End Date Toña Jones MD PCP - General Nephrology 11/25/11 01/01/14 Momo Forbes PCP - General Family Practice 01/02/[address] [address] Siers, Ingrid A, RN Registered Nurse Transplant 02/10/12 documented as of this encounter
--- OUTSIDE RECORDS SUMMARY | 2022-06-30 11:07 | XMS_ITS ---
:1950 Author Organization [place] Address [address] [place] [address] Care Team Providers Name Role Phone Momo Forbes Primary Care Provider Joseph Quintana MD Unavailable Transplant [facility] [place] [facility] - MNUMOrgan Received: Right KidneyTransplanted on 02/02/2014Marked as Active Follow-up on 02/02/2014 Kidney CoordinatorCHAPO Durhamhone: N/AFax: N/AEmail: N/A [place] Organ Diagnosis Organ Primary Contributory Kidney Diabetes Mellitus - Type II Infection History Noted Survival Infection Treatment Organism Resolved 09/18/2020 6 years 7 months Gram-negative Surgery, Medical bacterial infection management 09/17/2020 6 years 7 months Bacterial infection Antibiotics Donor Information Organ ABO Source Meets Risk HLA Match Mismatches Cross [facility] Criteria Right Kidney A1 DBD No A: [...] N/A G German Jones MD Referring Physician [phone] [email or web address] Post-Transplant Pre-Transplant Admitted: 02/02/2014 Referred: 12/07/2011 Transplanted: 02/02/2014 Evaluation began: 02/08/2012 Discharged: 02/08/2014 Committee: 02/16/2012 Center waitlisted: 02/18/2012 Dialysis History Dialysis History Start End Type Comments Center 09/06/2011 02/02/2014 Hemo Dialysis Days per week -- [facility] ([facility] Dialysis Center Information Center Phone Fax Address [facility] [phone] [address] (ESRD) [facility] [phone]
--- OUTSIDE RECORDS SUMMARY | 2022-06-30 11:07 | XMS_ITS | Encounter Summary ---
:1950 Author Organization [place] Address [address] [facility] [place] [address] Care Team Providers Name Role Phone Toña [...] on filedocumented in this encounter Care Teams Integrity Engineer Relationship Specialty Start Date End Date Toña Jones MD PCP - General Nephrology 11/25/11 01/01/14 Momo Forbes PCP - General Family Practice 01/02/14 [facility] [address] [place] [address] Ingrid Santana, RN Registered Nurse Transplant 02/10/12 documented as of this encounter
--- OUTSIDE RECORDS SUMMARY | 2022-06-30 11:07 | XMS_ITS | Encounter Summary ---
:1950 Author Organization [place] Address [address] [place] [address]. [place] [address] Care Team Providers Name Role Phone Toña Jones MD Primary Care Provider Ingrid Santana RN Unavailable Unavailable Momo Forbes Primary Care Provider Encounter Details Date Type Department Care Team Description 04/12/[address] [facility] Provider, MD Marcela Social History Tobacco [...] on filedocumented in this encounter Care Teams Correctional Facility Nurse Relationship Specialty Start Date End Date Toña Jones MD PCP - General Nephrology 11/25/11 01/01/14 Momo Forbes PCP - General Family Practice 01/02/[address] [address] Siers, Ingrid A, RN Registered Nurse Transplant 02/10/12 documented as of this encounter
--- OUTSIDE RECORDS SUMMARY | 2022-06-30 11:07 | XMS_ITS | Encounter Summary ---
:1950 Author Organization [place] Address [address] [facility] [place] [address] Care Team Providers Name Role Phone Toña [...] on filedocumented in this encounter Care Teams Shore Hand Dredge Or Barge Relationship Specialty Start Date End Date Toña Jones MD PCP - General Nephrology 11/25/11 01/01/14 Momo Forbes PCP - General Family Practice 01/02/14 [facility] [address] [place] [address] Ingrid Santana, RN Registered Nurse Transplant 02/10/12 documented as of this encounter
--- OUTSIDE RECORDS SUMMARY | 2022-06-30 11:07 | XMS_ITS | Encounter Summary ---
:1950 Author Organization [place] Address [address] [place] [address]. [place] [address] Care Team Providers Name Role Phone Toña Jones MD Primary Care Provider Ingrid Santana RN Unavailable Unavailable Momo Forbes Primary Care Provider Encounter Details Date Type Department Care Team Description 06/05/2008 Historic Results [facility] Provider, MD Marcela Social History Tobacco [...] on filedocumented in this encounter Care Teams Adapted Physical Education Aide Relationship Specialty Start Date End Date Toña Jones MD PCP - General Nephrology 11/25/11 01/01/14 Momo Forbes PCP - General Family Practice 01/02/[address] [address] Siers, Ignrid A, RN Registered Nurse Transplant 02/10/12 documented as of this encounter
--- OUTSIDE RECORDS SUMMARY | 2022-06-30 11:07 | XMS_ITS | Encounter Summary ---
:1950 Author Organization [place] Address [address] [place] [address]. [place] [address] Care Team Providers Name Role Phone Toña [...] on filedocumented in this encounter Care Teams Willow Machine Operator Relationship Specialty Start Date End Date Toña Jones MD PCP - General Nephrology 11/25/11 01/01/14 Momo Forbes PCP - General Family Practice 01/02/[address] [address] Siers, Ingrid A, RN Registered Nurse Transplant 02/10/12 documented as of this encounter
--- OUTSIDE RECORDS SUMMARY | 2022-06-30 11:07 | XMS_ITS | Encounter Summary ---
:1950 Author Organization [place] Address [address] [place] [address]. [address] Care Team Providers Name Role Phone Toña Jones MD Primary Care Provider Ingrid Santana RN Unavailable Unavailable Momo Forbes Primary Care Provider Encounter Details Date Type Department Care Team Description 01/12/2010 Historic Results [facility] Provider, MD Marcela Social History Tobacco [...] on filedocumented in this encounter Care Teams Meter Mechanic Relationship Specialty Start Date End Date Toña Jones MD PCP - General Nephrology 11/25/11 01/01/14 Momo Forbes PCP - General Family Practice 01/02/[address] [address] Siers, Ingrid A, RN Registered Nurse Transplant 02/10/12 documented as of this encounter
--- OUTSIDE RECORDS SUMMARY | 2022-06-30 11:07 | XMS_ITS | Encounter Summary ---
:1950 Author Organization [place] Address [address] [place] [address]. [place] [address] Care Team Providers Name Role Phone Toña Jones MD Primary Care Provider Ingrid Santana RN Unavailable Unavailable Momo Forbes Primary Care Provider Encounter Details Date Type Department Care Team Description 01/06/[address] [facility] Provider, MD Marcela Social History [...] filedocumented in this encounter Care Teams Concrete Mixer Relationship Specialty Start Date End Date Toña Jones MD PCP - General Nephrology 11/25/11 01/01/14 Momo Frobes PCP - General Family Practice 01/02/[address] [address] Siers, Ingrid A, RN Registered Nurse Transplant 02/10/12 documented as of this encounter
--- OUTSIDE RECORDS SUMMARY | 2022-06-30 11:07 | XMS_ITS | Encounter Summary ---
:1950 Author Organization [facility] Address [address] [place] [address] Care Team Providers Name Role Phone Toña [...] filedocumented in this encounter Care Teams Service Center Supervisor Relationship Specialty Start Date End Date Toña Jones MD PCP - General Nephrology 11/25/11 01/01/14 Momo Forbes PCP - General Family Practice 01/02/14 [facility] [address] [place] [address] Ingrid Santana, RN Registered Nurse Transplant 02/10/12 documented as of this encounter
== END 2022-06-30 10:50 | disposition home or self-care (01) ==
LOC: WOUND 10:49
PROVIDERS: PCP Family Medicine; Visit Provider Surgery
DX: L89.313 Pressure ulcer of right buttock, stage 3 (principal)
CPT/HCPCS: 97597

== ENCOUNTER 2022-07-01 10:24 | Outpatient (CLI) | payer MEDICARE, BC, SELFPAY ==
[2022-07-01 13:49] LABS: Basophils Percent Auto 0.3 % (0.0-3.0); Eosinophils Percent Auto 6.5 % (0.0-7.0); Hemoglobin* 11.5 gm/dL (13.5-17.5); Mean Corpuscular HGB Conc 30 gm/dL (32-36); Mean Corpuscular Hemoglobin 27 pg (26-34); Mean Corpuscular Volume 88 fL (80-100); Monocytes Percent Auto 9.6 % (0.0-11.0); Neutrophils Percent Auto 61.6 % (42.0-72.0); Platelet Count* 102 K/uL (140-440); Red Blood Count 4.33 m/uL (4.30-5.90); White Blood Count* 3.55 K/uL (4.50-11.00)
[2022-07-01 13:56] LABS: Slide Review Reflex No
[2022-07-01 15:10] LABS: Chloride* 111 mmol/L (96-114)
[2022-07-01 15:11] LABS: Potassium* 5.2 mmol/L (3.6-5.1); Sodium* 138 mmol/L (135-149)
[2022-07-01 15:13] LABS: Creatinine* 2.5 mg/dL (0.5-1.5); Estimated Glomerular Filt Rate 27 ml/min
[2022-07-01 15:14] LABS: Blood Urea Nitrogen* 24 mg/dL (7-30); Calcium* 8.8 mg/dL (8.4-10.6); Carbon Dioxide* 20 mmol/L (20-32); Glucose* 148 mg/dL (60-115)
== END 2022-07-01 10:25 | disposition home or self-care (01) ==
PROVIDERS: PCP Family Medicine; Visit Provider Family Medicine
DX: J18.9 Pneumonia, unspecified organism (principal); I10 Essential (primary) hypertension
CPT/HCPCS: 80048; 85025

== ENCOUNTER 2022-07-05 14:06 | Outpatient (CLI) | payer MEDICARE, BC, SELFPAY ==
--- OUTSIDE RECORDS SUMMARY | 2022-07-05 14:39 | XMS_ITS | Clinical Summary ---
:1950 Author Organization [employer] Address [place] [address] Care Team Providers Name Role Phone Momo Forbes MD Primary Care Provider [phone] Allergies No known active allergies Medications [...] Okay to use Medela Wound Vac at [facility] Right foot wound debridement with application of integra bilayer matrix and wound vac, 10.0 cm x 5.0 cm x 0.6 cm. M- W-F dressing changes gabapentin Take 1 capsule 21 capsule 0 09/26/19 Act jo (NEURONTIN) 300 mg by mouth 3 times 21 capsuleIndications: daily. neuropathic pain Indications: neuropathic pain durable medical Custom [employer] [employer] [place] boot 1 Each 0 11/27/19 Active equipment [...] tablet mouth once (*IP daily. Discontinu ed) cefuroxime axetil Take 1 Tablet 12 Tablet 0 06/05/20 (CEFTIN) 500 mg (500 mg) by tabletIndications: mouth two times lower respiratory daily for 6 infection, urinary days. tract infection dexAMETHasone Take 1 Tablet (6 7 Tablet 0 06/06/20 (DECADRON) 6 mg mg) by mouth tabletIndications: once daily with Pneumonia due to a meal for 7 COVID-19 virus days. warfarinIndications: As directed. 7 Each 0 06/20/20 Discontinued Chronic atrial 22 022 (Reor toribio fibrillation (HC) (E -cancel not sent)) benzonatate Take 1 Capsule 21 Capsule 0 06/20/20 Ex pired (TESSALON) 100 mg (100 mg) by 22 022 capsuleIndications: mouth 3 times Cough in [...] due to COVID-19 (HC) (Primary Dx); 06/20/2022 AliDO Chronic atrial fibrillation (HC); Larry Casas Gastrointestina l hemorrhage, unspecified gastrointestinal hemorrhage type; DAVID Denton Hypertension; Arnoldo Gregory [facility] Discharge Summary - Arnoldo Gregory [facility] - 06/20/2022 8:17 AM CDT Images from the original not e were not included. HOSPITAL DISCHARGE SUMMARY Patient Name: Diego Guthrie Date of : 1950 Age: 72 y.o. [id number] Primary Physician: Momo Forbes MD Admission Date: 06/15/2022 Discharge Date: 06/20/2022 He will be discharged from [facility] to home. 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 albuterol HFA 90 mcg/actu ation inhaler [...] and I nstructions AMB CONSULT TO HOME nursing home Health Certification/F dharmesh to Face Attestation: I [...] allowed practitioner. The beni ent had a [id number] encou nter with a physician or an [...] pointment(s) [facility] [place] [facility] at 10:50 with Alexandria Banuelos. [employer] [place] You have been referred to [facility] with [facility] ( ) . Please [...] scarlett w up appointment(s) Momo Forbes MD [facility] follow up May resume ARB med [...] medical emergency. Why were you at the [facility] 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 HOSPITALIST DISCHARGE SUMMAR Y ? ? [facility] Admission Date: 06/01/2022 Discharge Date: 06/05/2022 Discharge Plan: Diego agee was discharged to home. Principal Diagnosis [...] post renal transplant in 2013 at the [facility] on CellCept and Prograf who presents [...] transplant team because he is inpatient per [facility] policy given the EUA stipulations. 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 [employer]CI wound VAC Setting 125mmHg placed 09/19/20 - Okay to use [facility] Right foot wound debridement with application of [...] your medicines [id number] [address] [address] ?? cefuroxime axetil 500 mg tablet ?? dexAMETHasone 6 mg tablet Pertinent Findings / Procedu res First weight: (!) 148.5 kg ( 327 lb 6.4 oz) (Weighed with prostetic leg on - prostetic leg adds 20 lbs) (06/01/22 8692) Last weight: (!) 148.4 kg (327 lb 3.2 oz) (06/02/22 6451) EXAM: Diego is alert, no acu te [...] H Recent Labs 06/05/22 0547 06/04/22 0847 06/03/22546 SODIUM -- 140 139 POTASSIUM 4.0 4.3 4.7 CHLORIDE -- 110 112 H [id number] -- BUN -- 42 H 36 H CREATININE 2.23 H 2.34 H 2.4 5 H GLUCOSE -- 172 H 215 H CALCIUM -- 9.5 9.1 Recent Labs 06/02/2224 ALKPHOSPH 95 PROTEIN 6.4 BILITOTAL 1.6 H AST 8 ALT 8 Recent Labs 06/02/2224 CREACTPROT 1.36 H Recent Labs 06/03/22 0547 06/02/22 0610 06/02/224 INR -- -- 1.4 H DDIMER 0.96 1.10 -- Recent Labs 06/04/2247 06/03/2247 06/02/22 0025 BNP 266 H 435 H 601 H TROPONINI -- -- 0.012 Recent Labs 06/05/22 0821 06/04/22 2101 06/04/22 1825 06/04/22 1737 06/04/22 1138 06/04/22 0849 06/03/22 2216 06/03/22 1811 06/03/22 1247 06/03/22 0850 GLUCOSEMETER 258 H 212 H 194 H 204 H 175 H 171 H 307 H 244 H 283 H 230 H Recent Labs 06/02/22 004 COLOR Yellow CLARITY Clear SPECGRAV 1.020 PHURINE 6.0 UROBILINOGEN Normal PROTEINUA 100 A Recent Labs 06/02/2244 GLUCOSEUA 100 A KETONESUA Negative BILIURINE Negative BLOODUA Small A NITRITE Positive A LEUKOCYTE Moderate A Micro Microbiology Results (72 CAIO RS) Procedure Component Value U nits Date/Time URINE CULTURE [[id number]] (Abnormal) (Susceptibility) Collected: 06/02/2244 Lab Status: Final [...] or P.mirablis. Linear View INFLUENZA A/B/H1N1 PCR [[id number]] (Normal) Collected: 06/02/2238 Lab Status: Final result Sp ecimen: Other from Nasopharyngeal Updated: 06/02/22122 INFLUENZA A PCR NOT Detecte d INFLUENZA B PCR NOT Detecte d COVID 19 [[id number]] (Abno rmal) Collected: 06/02/2238 Lab Status: Final [...] terminated or revoked sooner. BLOOD CULTURE X2 [[id number]] (Normal) Collected: 06/02/2224 Lab Status: Preliminary res ult Specimen: Blood Updated: 06/02/22506 CULTURE No growth to date. BLOOD CULTURE X2 [[id number]] (Normal) Collected: 06/02/2221 Lab Status: Preliminary [...] Duration 110 QT 362 QTc 415 R [place] 26 Consultants None Curbside with his transplant team at the [facility] Diet / Activity / Follow-Up After Discharge Orders and I nstructions COVID-19 Discharge Informat ion: Discharge instructions for COVID test positive You were tested for COVID-19 and your test result was positive. Additional Information When it is safe to return to work, school, or daycare: If you or others in your [facility] are working, please reach out to your Employer for further direction on work policies. For children who attend scho ol or day care, refer your child's school or day care policy for when its safe to return, You can also refer to the [employer] guidelines. Go to: [email or web address].[email or web address]./di ranulfoes/coronavirus/[email or web address]/[email or web address].pdf Call 911 if [...] Centers for Disease Control (CDC) - https://www.cdc.gov/coronavirus/2019-nCoV/index.html Formerly [facility] ([employer]) - https://www.[facility]/diseases/coronavirus/index.html For children who attend scho ol or day care, refer to the following [employer] guidelines: Go to: https://www.[facility]/diseases/coronavirus/schools/exguide.pdf [facility] website www.[facility].[place].[facility] and Positioning and Breathing Exercises Positioning: [...] or crutches as directed. Carry a phone (cordless or c InNetworkular) with you at all times in case [...] prevent pressure sores. Primary Care Provider scarlett w up appointment(s) Momo Forbes MD in 3-5 [...] medical emergency. Why were you at the [facility] The reason(s) you were in [facility] is/are COVID pneumonia and a bladder infection. Pending Studies Lab results that may not be resulted at time of discharge: (From admission through now) Start Ordered 06/02/2214 BLOOD CULTURE X2 Q1MIN, STAT Start Priority Status 06/02/22 001 STAT Prelimina ry result Details 06/02/22 0020 STAT Prelimina ry result Details 06/02/22 0007 Total time spent on discharg e coordination: 33 minutes. Patient was seen and examined today. Víctor Schuler DO Hospitalist, [facility] ? ? [phone] Cc: Sondra Renal Transplant Team 06/01/2022 Travel [...] Visit Angie Chatterjee, DPChance [address] [place] [address] (Wo rk) Health Maintenance Due Date Last [...] Christoph 140/90 Medical Devices Implanted Type Area Inpatient Services Director Device Shelf Model / Identifier Expiration Date Ser ial / Lot Drsg Wound 4x5in Matrix Bilayer Right: 08/21/2020 [id number] / Implanted: Qty: 1 on 09/23/2020 by Araceli Fowler DPM at [facility] / [id number] Description: DRSG WOUND 4X5IN MATRIX JYOTI BHAVIK [...] of43 resultswithin the time period is included. athologist Signature GLUCOSE METER 218 (H) 65 - 100 06/20/2022 [place] mg/dL 11:14 AM CDT HOSPITAL Specimen Anatomical Collection Method Collection Time Receive d Time (Source) Location / / Volume Laterality Blood BLOOD SPECIMEN / 06/20/2022 11:10 022 Unknown AM CDT 11:14 AM CDT Arnoldo Gregory [facility] CHEMISTRY Performing Organization Address City/State/ZIP Code Phon e Number [facility] [address] [place] [phone] (ABNORMAL) CBC WITH AUTO DIFFERENTIAL (06/20/2022 5:44 AM CDT)Only the most recent of11 resultswithin the time period is included. [facility] gist Method Time Signature WHITE BLOOD 6.4 4.5 - 11.0 06/20/2022 [place] COUNT thou/cu mm 6:27 AM CDT [facility] RED BLOOD COUNT 4.64 4.30 - 06/20/2022 [...] ABSOLUTE 0.4 (L) 0.9 - 2.9 06/20/2022 [place] LYMPHOCYTES thou/cu mm 6:27 AM CDT HOSPITAL ABSOLUTE 0.4 <0.9 06/20/2022 [place] MONOCYTES thou/cu mm 6:27 AM CDT HOSPITAL ABSOLUTE 0.0 <0.5 06/20/2022 [place] EOSINOPHILS thou/cu mm 6:27 AM CDT HOSPITAL ABSOLUTE 0.0 <0.3 06/20/2022 [place] BASOPHILS thou/cu mm 6:27 AM CDT HOSPITAL Specimen Anatomical Collection Method / Collection Time Recei laura Time (Source) Location / Volume Laterality Blood BLOOD SPECIMEN / Venipuncture / 06/20/2022 5:44 2021 6:11 Unknown Unknown AM CDT AM CDT [facility] HEMATOLOGY Performing Organization Address City/[facility] e Number [facility] [address] [place] [phone] (ABNORMAL) PROTIME-INR (06/20/2022 5:44 AM CDT)Only the most recent of5 results within the time period is included. athologist Signature INR 1.8 (H) <1.3 06/20/2022 [place] 6:22 AM CDT [facility] PROTIME 20.1 (H) 12.0 - 13.8 06/20/2022 [facility] 6:22 AM CDT HOSPITAL Specimen Anatomical Collection Method / Collection Time Recei laura Time (Source) Location / Volume Laterality Blood BLOOD SPECIMEN / Venipuncture / 06/20/2022 5:44 2021 6:12 Unknown Unknown AM CDT AM CDT [facility] - 06/20/2022 6:22 AM C DT [...] if the patient is on UFH. [facility] HEMATOLOGY Performing Organization Address [facility] Phon e Number [facility] [address] [phone] (ABNORMAL) BASIC METABOLIC PANEL (06/20/2022 5:44 AM CDT)Only the most recent of 6 resultswithin the time period is included. Analysis [facility] Time Signature SODIUM 138 135 - 145 06/20/2022 [place] mmol/L 6:35 AM T HOSPITAL POTASSIUM 4.3 3.5 - 5.0 06/20/2022 [place] mmol/L 6:35 AM T HOSPITAL CHLORIDE 113 (H) 98 - 110 06/20/2022 [place] mmol/L 6:35 AM T HOSPITAL CO2,TOTAL 21 21 - 31 06/20/2022 [place] mmol/L 6:35 AM T HOSPITAL ANION GAP 4 (L) 5 - 18 06/20/2022 [facility] 6:35 AM T HOSPITAL GLUCOSE 163 (H) 65 - 100 06/20/2022 [place] mg/dL 6:35 AM T HOSPITAL CALCIUM 8.9 8.5 - 10.5 06/20/2022 [place] mg/dL 6:35 AM T HOSPITAL BUN 51 (H) 8 - 25 06/20/2022 [place] mg/dL 6:35 AM T HOSPITAL CREATININE 2.01 (H) 0.72 - 06/20/2022 [place] 1.25 mg/dL 6:35 AM T HOSPITAL BUN/CREAT RATIO 25 (H) 10 - 20 [facility] 6[facility] eGFR 35 (L) >90 06/20/2022 [place] mL/min/1.7 6:[address] [facility] 3m2 Comment: As of 2021, [...] 6:12 Unknown Unknown AM CDT AM CDT Emad Drea Gregory [facility] CHEMISTRY Performing Organization Address City/State/ZIP Code Phon e Number [facility] [address] [phone] (ABNORMAL) RED CELL MORPHOLOGY (06/19/2022 5:52 AM CDT)Only the most recent of7 resultswithin the time period is included. [facility] Method Time Signature ELLIPTOCYTES Few 06/19/2022 [place] 7:57 AM CDT HOSPITAL RBC COMMENT Present (A) RBC morphology 06/19/2022 [place] appears 7:57 AM CDT HOSPITAL normal, RBC morphology within normal limits for newborns. Specimen Anatomical Collection Method / Collection Time Recei laura Time (Source) Location / Volume Laterality Blood BLOOD SPECIMEN / Venipuncture / 06/19/2022 5:52 2021 6:44 Unknown Unknown AM CDT AM CDT [facility] HEMATOLOGY Performing Organization Address [facility]/ZIP [facility] [address] [phone] (ABNORMAL) PLATELET ESTIMATE (06/19/2022 5:52 AM CDT)Only the most recent of7 resultswithin the time period is included. [facility] Method Time Signature PLATELET Decreased (A) Adequate, No 06/19/2022 [place] ESTIMATE estimate 7:57 AM CDT HOSPITAL Specimen Anatomical Collection Method / Collection Time Recei laura Time (Source) Location / Volume Laterality Blood BLOOD SPECIMEN / Venipuncture / 06/19/2022 5:52 2021 6:44 Unknown Unknown AM CDT AM CDT [facility] HEMATOLOGY Performing Organization Address City/[facility] [address] [phone] PROCALCITONIN (06/19/2022 5:52 AM CDT)Only the most recent of2 resultswithin the time period is included. athologist Signature PROCALCITONIN 0.05 <0.50 ng/ml 06/19/2022 [facility] 9:45 AM CDT HOSPITAL Specimen Anatomical Collection Method / Collection Time Recei laura Time (Source) Location / Volume Laterality Blood BLOOD SPECIMEN / Venipuncture / 06/19/2022 5:52 2021 6:44 Unknown Unknown AM CDT AM CDT Narrative [facility] - 06/19/2022 9:45 AM C DT Procalcitonin [...] if any concentrations <2.0 ng/mL are obtained. [facility] SEND OUTS Performing Organization Address City/State/ZIP Code Phon e Number [facility] [address] [place] [phone] XR CHEST 1 VIEW PORTABLE (06/18/2022 9:15 AM CDT)Only the most recent of4 resultswithin the time period is included. Anatomical Region Laterality Modality HEART, THORAX, CHEST Digital Radiography Specimen (Source) Anatomical Location Collection Method / Collectio n Time Received Time / Laterality Volume Narrative This result has an attachment that is no t available. [facility] GENERAL IMAGING MAGNESIUM (06/17/2022 6:25 AM CDT)Only the most recent of4 resultswithin the time period is included. P athologist Signature MAGNESIUM 2.2 1.6 - 2.6 06/17/2022 [place] mg/dL 7:01 AM T HOSPITAL Specimen Anatomical Collection Method / Collection Time Recei laura Time (Source) Location / Volume Laterality Blood BLOOD SPECIMEN / Venipuncture / 06/17/2022 6:25 2021 6:29 Unknown Unknown AM CDT AM CDT Larry HERNANDEZ CHEMISTRY Performing Organization Address City/State/ZIP Code Phon e Number [facility] [address] [phone] (ABNORMAL) COMP METABOLIC PANEL (06/17/2022 6:25 AM CDT)Only the most recent of5 resultswithin the time period is included. Patholo gist Method Time Signature SODIUM 137 135 - 145 06/17/2022 [place] mmol/L 7:01 AM T HOSPITAL POTASSIUM 4.7 3.5 - 5.0 06/17/2022 [place] mmol/L 7:[address] [facility] CHLORIDE 110 98 - 110 06/17/2022 [place] mmol/L 7:01 AM T HOSPITAL CO2,TOTAL 20 (L) 21 - 31 06/17/2022 [place] mmol/L 7:01 AM T HOSPITAL ANION GAP 7 5 - 18 06/17/2022 [place] 7:[address] [facility] GLUCOSE 263 (H) 65 - 100 06/17/2022 [place] mg/dL 7:01 AM T HOSPITAL CALCIUM 9.0 8.5 - 10.5 06/17/2022 [place] mg/dL 7:[address] [facility] BUN 53 (H) 8 - 25 06/17/2022 [place] mg/dL 7:01 AM T HOSPITAL CREATININE 2.01 (H) 0.72 - 06/17/2022 [place] 1.25 mg/dL 7:01 AM T HOSPITAL BUN/CREAT RATIO 26 (H) 10 - 20 06/17/2022 [place] 7:01 AM T HOSPITAL ALBUMIN 2.6 (L) 3.2 - 4.6 06/17/2022 [place] g/dL 7:01 AM T HOSPITAL PROTEIN,TOTAL 5.3 (L) 6.0 - 8.0 06/17/2022 [place] g/dL 7:01 AM T HOSPITAL GLOBULIN 2.7 2.0 - 3.7 06/17/2022 [place] g/dL 7:01 AM T HOSPITAL A/G RATIO 1.0 1.0 - 2.0 06/17/2022 [place] 7:01 AM T HOSPITAL BILIRUBIN,TOTAL 1.0 0.2 - 1.2 06/17/2022 [place] mg/dL 7:01 AM T HOSPITAL ALK PHOSPHATASE 81 50 - 136 06/17/2022 [place] IU/L 7:01 AM T HOSPITAL ALT (SGPT) 17 8 - 45 06/17/2022 [place] IU/L 7:01 AM T HOSPITAL AST (SGOT) 10 2 - 40 06/17/2022 [place] IU/L 7:01 AM T HOSPITAL eGFR 35 (L) >90 06/17/2022 [place] mL/min/1.7 7:01 AM T HOSPITAL 3m2 Comment: As of 2021, eGFR [...] CDT Larry HERNANDEZ CHEMISTRY Performing Organization Address City/State/ZIP Code Phon e Number [facility] [address] [phone] ECHO COMPLETE WO CONTRAST (06/16/2022 4:09 PM [...] time period is included. P athologist Signature PHOSPHORUS 3.0 2.3 - 4.7 06/16/2022 [place] mg/dL 6:42 AM CDT HOSPITAL Specimen Anatomical Collection Method / Collection Time Recei laura Time (Source) Location / Volume Laterality Blood BLOOD SPECIMEN / Venipuncture / 06/16/2022 5:17 2021 6:17 Unknown Unknown AM CDT AM CDT Larry HERNANDEZ CHEMISTRY Performing Organization Address [facility]/ZIP [address] [phone] (ABNORMAL) Serum Glucose (06/15/2022 11:59 PM CDT)Only the most recent of5 resultswithin the time period is included. athologist Signature GLUCOSE,RANDOM 480 (HH) 65 - 140 06/16/2022 [place] mg/dL 12:29 AM CDT HOSPITAL Specimen Anatomical Collection Method / Collection Time Recei laura Time (Source) Location / Volume Laterality Blood BLOOD SPECIMEN / Venipuncture / 06/15/2022 11:59 06/16 Unknown Unknown PM CDT 12:10 AM CDT Kyle Fontenot DO CHEMISTRY Performing Organization Address City/[facility]/[address] [address] APTT (06/15/2022 11:59 PM CDT)Only the most recent of2 resultswithin the time period is included. P athologist Signature APTT 26 24 - 33 sec 06/16/2022 [place] 12:21 AM CDT HOSPITAL Specimen Anatomical Collection Method / Collection Time Recei laura Time (Source) Location / Volume Laterality Blood BLOOD SPECIMEN / Venipuncture / 06/15/2022 11:59 06/16 Unknown Unknown PM CDT 12:10 AM CDT Narrative [facility] - 06/16/2022 12:21 AM CDT Therapeutic Range: 70-95 seconds Larry HERNANDEZ HEMATOLOGY Performing Organization Address City/State/ZIP Code [facility] e Number [facility] [address] [place] [phone] (ABNORMAL) OCCULT BLOOD IFOBT STOOL (06/15/2022 9:14 PM CDT) Patholo gist Method Time Signature STOOL BLOOD Positive (A) Negative 06/15/2022 [facility] PM CDT [facility]PITAL Specimen Anatomical Collection Method Collection Time Receive d Time (Source) Location / / Volume Laterality Stool STOOL SPECIMEN / Non-Blood / 06/15/2022 9:14 PM 06/15 9:19 Unknown Unknown CDT PM CDT Kyle Fontenot DO LABORATORY Performing Organization Address [facility] e Number [facility] [address] [place] [phone] (ABNORMAL) PLATELET COUNT (06/15/2022 4:58 PM CDT) P athologist Signature PLATELET COUNT 77 (L) 140 - 440 06/15/2022 [place] thou/cu mm 5:28 PM CDT HOSPITAL MPV 06/15/2022 [place] 5:28 PM CDT HOSPITAL Comment: Unable to be determined Specimen Anatomical Collection Method / Collection Time Recei laura Time (Source) Location / Volume Laterality Blood BLOOD SPECIMEN / Venipuncture / 06/15/2022 4:58 2021 5:03 Unknown Unknown PM CDT PM CDT Narrative [facility] - 06/15/2022 5:28 PM C DT Obtain before initiating IV heparin therapy if not done within previous 24 hours. Obtain before initiating IV heparin ther apy if not done within previous 24 hours. Obtain before initiating IV heparin ther apy if not done within previous 24 hours. Larry HERNANDEZ HEMATOLOGY Performing Organization Address City/[facility]/ZIP [facility] e [address] [place] [address] (ABNORMAL) HEMOGLOBIN (06/15/2022 4:58 PM CDT)Only the most recent of2 results within the time period is included. athologist Signature HEMOGLOBIN 12.5 (L) 13.5 - 06/15/2022 [place] 17.5 g/dL 5:08 PM CDT HOSPITAL MCV 83 80 - 100 06/15/2022 [place] fL 5:08 PM CDT HOSPITAL Specimen Anatomical Collection Method / Collection Time Recei laura Time (Source) Location / Volume Laterality Blood BLOOD SPECIMEN / Venipuncture / 06/15/2022 4:58 2021 5:03 Unknown Unknown PM CDT PM CDT [facility] - 06/15/2022 5:08 PM C DT Obtain before initiating IV heparin therapy if not done within previous 24 hours. Obtain before initiating IV heparin ther apy if not done within previous 24 hours. Obtain before initiating IV heparin ther apy if not done within previous 24 hours. Larry HERNANDEZ HEMATOLOGY Performing Organization Address City/[facility]/ZIP Code [address] [address] HEMATOCRIT (06/15/2022 4:58 PM CDT) athologist Signature HEMATOCRIT 38.8 37.0 - 53.0 06/15/2022 [place] % 5:10 PM CDT HOSPITAL Specimen Anatomical Collection Method / Collection Time Recei laura Time (Source) Location / Volume Laterality Blood BLOOD SPECIMEN / Venipuncture / 06/15/2022 4:58 2021 5:03 Unknown Unknown PM CDT PM CDT [facility] - 06/15/2022 5:10 PM C DT Obtain before initiating IV heparin therapy if not done within previous 24 hours. Obtain before initiating IV heparin ther apy if not done within previous 24 hours. Obtain before initiating IV heparin ther apy if not done within previous 24 hours. Larry HERNANDEZ HEMATOLOGY Performing Organization Address [facility]/ZIP [address] [address] (ABNORMAL) BUN (06/15/2022 4:58 PM CDT) athologist Signature BUN 65 (H) 8 - 25 06/15/2022 [place] mg/dL 5:24 PM CDT HOSPITAL Specimen Anatomical Collection Method / Collection Time Recei laura Time (Source) Location / Volume Laterality Blood BLOOD SPECIMEN / Venipuncture / 06/15/2022 4:58 2021 5:03 Unknown Unknown PM CDT PM CDT Larry HERNANDEZ CHEMISTRY Performing Organization Address City/[facility] e Number [address] [address] (ABNORMAL) CREATININE (06/15/2022 4:58 PM CDT)Only the most recent of2 results within the time period is included. athologist Signature CREATININE 2.40 (H) 0.72 - 1.25 06/15/2022 [place] mg/dL 5:23 PM CDT HOSPITAL eGFR 28 (L) >90 06/15/2022 [place] mL/min/1.73 5:23 PM CDT HOSPITAL m2 Comment: [...] CDT Larry HERNANDEZ CHEMISTRY Performing Organization Address City/[facility] e Number [address] [address] [place] VENOUS LOWER EXTREMITY BILATERAL (06/15/2022 4:05 PM CDT) Anatomical Region Laterality Modality LEGS, LEG L, LEG R Ultrasound Specimen (Source) Anatomical Location Collection Method / Collectio n Time Received Time / Laterality Volume Narrative This result has an attachment that is no t available. Larry HERNANDEZ (ABNORMAL) D-DIMER,QUANTITATIVE (06/15/2022 3:01 PM CDT)Only the most recent of3 resultswithin the time period is included. [facility] gist Method Time Signature D-DIMER,QUANT 1.65 See Comment 06/15/2022 [place] ITATIVE / FEU 3:25 PM CDT HOSPITAL mcg/mL D-DIMER Abnormal (A) 06/15/2022 [place] INTERP 3:25 PM CDT HOSPITAL Specimen Anatomical Collection Method / Collection Time Recei laura Time (Source) Location / Volume Laterality Blood BLOOD SPECIMEN / Venipuncture / 06/15/2022 3:01 2021 3:09 Unknown Unknown PM CDT PM CDT Narrative [facility] - 06/15/2022 3:25 PM C DT The [...] range Larry HERNANDEZ HEMATOLOGY Performing Organization Address City/State/ZIP Code Phon e Number [facility] [address] [address] (ABNORMAL) IRON PLUS IRON BINDING CAP (06/15/2022 5:46 AM CDT) Analysis Performed At [facility] logist Time Signature IRON 23 (L) 31 - 144 06/17/2022 [facility] ug/dL 7:13 PM CDT LABORATORY-JACKY TRAL LABORATORY UIBC 154 06/17/2022 [facility] (UNSATURATED) 7:13 PM CDT LABORATORY-[facility] TRAL LABORATORY IRON BINDING 177 (L) 245 - 400 06/17/2022 [facility] CAPACITY ug/dL 7:13 PM CDT LABORATORY-[facility] TRAL LABORATORY IRON,% 13 (L) 20 - 55 % 06/17/2022 [facility] SATURATION 7:13 PM CDT LABORATORY-[facility] TRAL LABORATORY Specimen Anatomical Collection Method / Collection Time Recei laura Time (Source) Location / Volume Laterality Blood BLOOD SPECIMEN / Venipuncture / 06/15/2022 5:46 2021 6:01 Unknown Unknown AM CDT AM CDT Kyle Fontenot DO CHEMISTRY Performing Organization Address [facility] Code Phon e Number [facility] [address] [place] [phone] LABORATORY-CENTRAL 2000 LABORATORY (ABNORMAL) PTH,INTACT (06/15/2022 5:46 AM CDT) athologist [facility] PTH,INTACT 489.0 (H) 14.5 - 06/16/2022 [facility] 87.1 pg/mL 3:01 PM CDT LABORATORY-[facility] TRAL LABORATORY CALCIUM 8.6 8.5 - 10.5 06/16/2022 [facility] mg/dL 3:01 PM CDT LABORATORY-JACKY TRAL LABORATORY Specimen Anatomical Collection Method / Collection Time Recei laura Time (Source) Location / Volume Laterality Blood BLOOD SPECIMEN / Venipuncture / 06/15/2022 5:46 2021 6:01 Unknown Unknown AM CDT AM CDT Kyle Fontenot DO SEND OUTS Performing Organization Address [facility] Phon e Number [facility] [address] [place] [phone] LABORATORY-CENTRAL 1999 LABORATORY (ABNORMAL) FERRITIN (06/15/2022 5:46 AM CDT)Only the most recent of2 results within the time period is included. athologist Signature FERRITIN 547.6 (H) 22.0 - 06/17/2022 [facility] 275.0 7:22 PM CDT LABORATORY-CENT ng/mL RAL LABORATORY Specimen Anatomical Collection Method / Collection Time Recei laura Time (Source) Location / Volume Laterality Blood BLOOD SPECIMEN / Venipuncture / 06/15/2022 5:46 2021 6:01 Unknown Unknown AM CDT AM CDT Kyle Fontenot DO CHEMISTRY Performing Organization Address [facility] Phon e Number [facility] [address] [place] [phone] LABORATORY-CENTRAL 2000 LABORATORY WHITE BLOOD COUNT (06/15/2022 1:45 AM CDT) P athologist Signature WHITE BLOOD 9.3 4.5 - 11.0 06/15/2022 [place] COUNT thou/cu mm 1:53 AM CDT HOSPITAL Specimen Anatomical Collection Method Collection Time Receive d Time (Source) Location / / Volume Laterality Blood BLOOD SPECIMEN / Butterfly / 06/15/2022 1:45 AM 06/15 1:49 Unknown Unknown CDT AM CDT Narrative [facility] - 06/15/2022 1:53 AM C DT WBC MUST ALSO BE ORDERED, [id number] Kyle Fontenot DO HEMATOLOGY Performing Organization Address City/State/ZIP Code Phon e Number [facility] [address] [address] (ABNORMAL) DIFFERENTIAL (06/15/2022 1:45 AM CDT) Analysis Performed At Patho logist Time Signature % NEUT 94.6 % [facility] % LYMPH 2.0 % 06/15/2022 [place] 1:52 AM CDT HOSPITAL % MONO 2.8 % 06/15/2022 [place] 1:52 AM CDT HOSPITAL % EOS 0.5 % 06/15/2022 [facility] AM [facility] % BASO 0.1 % 06/[facility] AM [facility]T [facility]PITAL ABSOLUTE 8.8 (H) 1.7 - 7.0 06/15/2022 [place] NEUTROPHILS thou/cu mm 1:52 AM CDT HOSPITAL ABSOLUTE 0.2 (L) 0.9 - 2.9 06/15/2022 [place] LYMPHOCYTES thou/cu mm 1:52 AM CDT HOSPITAL ABSOLUTE 0.3 <0.9 06/15/2022 [place] MONOCYTES thou/cu mm 1:52 AM CDT HOSPITAL ABSOLUTE 0.1 <0.5 06/15/2022 [place] EOSINOPHILS thou/cu mm 1:52 AM CDT HOSPITAL ABSOLUTE 0.0 <0.3 06/15/2022 [place] BASOPHILS thou/cu mm 1:52 AM CDT HOSPITAL Specimen Anatomical Collection Method Collection Time Receive d Time (Source) Location / / Volume Laterality Blood BLOOD SPECIMEN / Butterfly / 06/15/2022 1:45 AM 06/15 1:49 Unknown Unknown CDT AM CDT Narrative [facility] - 06/15/2022 1:52 AM C DT WBC MUST ALSO BE ORDERED, [id number] Kyle Fontenot DO HEMATOLOGY Performing Organization Address City/State/ZIP Code Phon e Number [facility] [address] [address] (ABNORMAL) Hemoglobin A1C (06/15/2022 1:45 AM CDT)Only the most recent of2 resultswithin the time period is included. Analysis Performed At Patho logist Time Signature HEMOGLOBIN A1C 8.8 (H) <=6.4 % 06/16/2022 [facility] 8:31 PM CDT HOSPITAL (POCT) LABORATORY Specimen Anatomical Collection Method Collection Time Receive d Time (Source) Location / / Volume Laterality Blood BLOOD SPECIMEN / Add On / Unknown 06/15/2022 1:45 AM 1 Unknown CDT 10:06 AM CDT Narrative [facility] LABORATORY - 06/16/2022 8:31 PM CDT ? [...] Organization Address City/State/ZIP Code Phon e Number [facility] LABORATORY SENDOUT INTERNAL ZIP [place], [place] [phone] [facility] SCAN-CARDIAC STRIP (06/15/2022 12:00 AM CDT) [...] of2 resultswithin the time period is included. [facility] Method Time Signature RBC 3-5 (A) 0-2, None 06/14/2022 [place] Seen /HPF 11:14 PM [facility] LABORATORY WBC 6-10 (A) 0-2, 3-5, 06/14/2022 [place] None Seen 11:14 PM [facility] CENTER /HPF LABORATORY BACTERIA Few None 06/14/2022 [facility] Seen, 11:14 PM [facility] Rare, Few LABORATORY Bacteria/ HPF EPITHELIAL Few None 06/14/2022 [place] CELLS Seen, Few 11:14 PM [facility] CENTER Epi/HPF LABORATORY Mucus Present 06/14/2022 [place] 11:14 PM [facility] LABORATORY WHITE CELL Present (A) (none) 06/14/2022 [place] CLUMPS 11:14 PM [facility] LABORATORY Specimen Anatomical Collection Method Collection Time Receive d Time (Source) Location / / Volume Laterality Urine URINE SPECIMEN / Non-Blood / 06/14/2022 10:59 022 Unknown Unknown PM CDT 11:01 PM CDT Rosenda Blancas MD URINE Performing Organization Address City/State/ZIP Code Phon e Number [facility] LABORATORY [address] [place] [address] (ABNORMAL) UA W/ SEDIMENT EXAM REFLEXED PER CRITERIA (06/14/2022 10:59 PM CDT) Only the most recent of2 resultswithin the time period is included. [facility] Method Time Signature COLOR Yellow Yellow Color 06/14/2022 [place] 11:07 PM T [facility] LABORATORY CLARITY Clear Clear 06/14/2022 [facility] Clarity 11:07 PM [facility] LABORATORY SPECIFIC 1.025 1.010, 06/14/2022 [place] GRAVITY,URINE 1.015, 11:[address] [facility] MEDICAL 1.020, 1.025 CENTER LABORATORY PH,URINE 6.0 6.0, 7.0, 06/14/2022 [place] 8.0, 5.5, 11:[address] [facility] MEDICAL 6.5, 7.5, CENTER 8.5 LABORATORY UROBILINOGEN, Normal Normal EU/dl 06/14/2022 [place] QUALITATIVE 11:07 PM [facility] LABORATORY PROTEIN, 100 (A) Negative 06/14/2022 [place] URINE mg/dL 11:07 PM [facility] LABORATORY GLUCOSE, >=1000 (A) Negative 06/14/2022 [place] URINE mg/dL 11:07 PM [facility] LABORATORY KETONES,URINE Negative Negative 06/14/2022 [facility] mg/dL 11:07 [facility] LABORATORY BILIRUBIN,URI Negative Negative 06/14/2022 [facility] NE 11:07 PM [facility] LABORATORY OCCULT Small (A) Negative 06/14/2022 [facility] BLOOD,URINE 11:07 PM [facility] LABORATORY NITRITE Negative Negative 06/14/2022 [place] 11:07 PM [facility] LABORATORY LEUKOCYTE Negative Negative 06/14/2022 [facility] EST[facility]ASE 11:07 PM [facility] LABORATORY Specimen Anatomical Collection Method Collection Time Receive d Time (Source) Location / / Volume Laterality Urine URINE SPECIMEN / Non-Blood / 06/14/2022 10:59 022 Unknown Unknown PM CDT 11:01 PM CDT Rosenda Blancas MD URINE Performing Organization Address City/State/ZIP Code Phon e Number [facility] LABORATORY [address] [place] [address] LACTATE VENOUS (06/14/2022 8:41 PM CDT)Only the most recent of4 resultswithin the time period is included. athologist Signature LACTATE,VENOUS 1.7 0.5 - 2.0 06/14/2022 [place] mmol/L 8:59 PM [facility] LABORATORY Specimen Anatomical Collection Method / Collection Time Recei laura Time (Source) Location / Volume Laterality Blood BLOOD SPECIMEN / Venipuncture / 06/14/2022 8:41 2021 8:43 Unknown Unknown PM CDT PM CDT Rosenda Blancas MD CHEMISTRY Performing Organization Address City/State/ZIP Code Phon e Number [facility] LAB[facility] [address] [place] [address] CT CHEST WO (06/14/2022 7:52 PM CDT) Anatomical Region Laterality Modality CHEST, THORAX, HEART Computed Tomography Specimen (Source) Anatomical Collection Method Collection Time Re ceived Time Location / / Volume Laterality 06/14/2022 8:25 PM CDT Narrative 06/14/2022 8:25 PM CDT For Patients: ??As a result of the Century Cures Act, medical imaging exams and procedure report s are released immediately into your [facility] medical record. ??You may view this [...] note that all CT scans at this [facility] use dose modulation, iterative reconstruction, and/or weight-based dosing when appropriate to reduce radiation dose to as low as reasonably achievable. Dictated by Estevan Tubbs MD @ 06/14/20 8:25:44 PM (Electronically Signed) Procedure Note Estevan Tubbs MD - 06/14/2022Fo rmatting of this note might be different from the original. For Patients: As a result of the ntury Cures Act, medical imaging exams and procedure reports are released immediately into your electronic medical record. You may view this report before your referring provider. If you have questions, please contact [facility] health care provider. Indication: Shortness of breath [...] note that all CT scans at this [facility] use dose modulation, iterative reconstruction, and/or weight-based dosing when appropriate to reduce radiation dose to as low as reasonably achievable. Dictated by Estevan Tubbs MD @ 06/14/20 8:25:44 PM (Electronically Signed) Rosenda Blancas MD [...] report s are released immediately into your [facility] medical record. ??You may view this [...] note that all CT scans at this [facility] use dose modulation, iterative reconstruction, and/or weight-based dosing when appropriate to reduce radiation dose to as low as reasonably achievable. Dictated by Estevan Tubbs MD @ 06/14/20 8:21:44 PM (Electronically Signed) Procedure Note Estevan [...] note that all CT scans at this [facility] use dose modulation, iterative reconstruction, and/or [...] report s are released immediately into your [facility] medical record. ??You may view this report before your referring provider. ??If you have questions, please contact your health care provider. Indication: Trauma Technique: Volumetric multidetector CT images of th e head were obtained without the administration of low osmolar intravenous contrast. Comparison: CT head April 09, 2021 Findings: There is no intra-axial or extra-axial f luid collection. There is no mass effect or midline shift . There is age-related cortical atrophy wi th mild sulcal widening and ex vacuo dilatation [...] note that all CT scans at this [facility] use dose modulation, iterative reconstruction, and/or [...] Volumetric multidetector CT images of th e head were obtained without the administration of low osmolar intravenous contrast. Comparison: CT head April 09, 2021 Findings: There is no intra-axial or extra-axial f luid collection. There is no mass effect or midline shift . There is age-related cortical atrophy wi th mild sulcal widening and ex vacuo dilatation [...] note that all CT scans at this [facility] use dose modulation, iterative reconstruction, and/or weight-based dosing when appropriate to reduce radiation dose to as low as reasonably achievable. Dictated by Estevan Tubbs MD @ 06/14/20 8:16:47 PM (Electronically Signed) Rosenda Blancas MD CT BLOOD CULTURE (06/14/2022 6:36 PM CDT)Only the most recent of4 resultswithin the time period is included. athologist Signature CULTURE No growth 06/19/2022 [place] to date. 9:55 PM CDT [facility] LAB[facility]ATORY Specimen Anatomical Collection Method / Collection Time Recei laura Time (Source) Location / Volume Laterality Blood BLOOD SPECIMEN / Venipuncture / 06/14/2022 6:36 2021 6:42 Unknown Unknown PM CDT PM CDT Rosenda Blancas MD MICROBIOLOGY Performing Organization Address City/State/ZIP Code Phon e Number [facility] [address] [place] [phone] TROPONIN I (06/14/2022 6:35 PM CDT)Only the most recent of2 resultswithin the time period is included. athologist Signature TROPONIN I 0.019 <0.034 06/14/2022 [place] ng/mL 7:11 PM CDT [facility] LABORATORY Specimen Anatomical Collection Method / Collection Time Recei laura Time (Source) Location / Volume Laterality Blood BLOOD SPECIMEN / Venipuncture / 06/14/2022 6:35 2021 6:42 Unknown Unknown PM CDT PM CDT Rosenda Blancas MD CHEMISTRY Performing Organization Address City/[facility] Phon e Number [facility] [address] [place] [address] (ABNORMAL) BRAIN NATRIURETIC PEPTIDE (06/14/2022 6:35 PM CDT)Only the most recent of4 resultswithin the time period is included. athologist Signature BRAIN FILIPPO 116 (H) <100 pg/mL [facility]20[facility] 7:12 PM CDT [facility] LABOR[facility] Specimen Anatomical Collection Method / Collection Time Recei laura Time (Source) Location / Volume Laterality Blood BLOOD SPECIMEN / Venipuncture / 06/14/2022 6:35 2021 6:42 Unknown Unknown PM CDT PM CDT Rosenda Blancas MD CHEMISTRY Performing Organization Address [facility] Phon e Number [facility] [address] [place] [address] (ABNORMAL) COVID 19 (06/14/2022 6:34 PM CDT)Only the most recent of2 results within the time period is included. [facility] gist Method Time Signature COVID 19 Detected (A) Not detected 06/14/2022 [facility] [place] 6:59 PM CDT [facility] LABORAT[facility] Specimen Anatomical Location / Collection Method Collection Selvin e Received Time (Source) Laterality / Volume Other SPECIMEN FROM Non-Blood / 06/14/2022 6:34 06/14/2022 6:37 NASOPHARYNGEAL Unknown PM CDT PM CDT STRUCTURE / Unknown Narrative [facility] - 6:59 PM CDT This [...] Rosenda Blancas MD MICROBIOLOGY Performing Organization Address [facility] Phon e [facility] LABORATORY [address] [place] [address] COVID 19 COLLECTION (06/14/2022 6:34 PM CDT)Only the most recent of2 results within the time period is included. [facility] gist Method Time Signature TESTING [facility] 06/14/2022 [place] [facility] Laboratory 6:38 PM T [facility] LABORATORY Comment: Specimen submitted to [facility] Laboratory for testing. Specimen Anatomical Location / Collection Method Collection Selvin e Received Time (Source) Laterality / Volume Other SPECIMEN FROM Non-Blood / 06/14/2022 6:34 06/14/2022 6:37 NASOPHARYNGEAL Unknown PM CDT PM CDT STRUCTURE / Unknown Rosenda Blancas MD SEND OUTS Performing Organization Address [facility] Phon e [facility] LABORATORY [address] [place] [address] POTASSIUM (06/05/2022 5:47 AM CDT) P athologist Signature POTASSIUM 4.0 3.5 - 5.0 06/05/2022 [place] mmol/L 6:36 AM [facility] LABORATORY Specimen Anatomical Collection Method / Collection Time Recei laura Time (Source) Location / Volume Laterality Blood BLOOD SPECIMEN / Venipuncture / 06/05/2022 5:47 2021 6:05 Unknown Unknown AM CDT AM CDT Víctor Schuler DO CHEMISTRY Performing Organization Address [facility] Phon e Number [facility] [address] [place] [address] (ABNORMAL) BLOOD GAS,VENOUS (06/03/2022 5:47 AM CDT)Only the most recent of2 resultswithin the time period is included. [facility] gist Method Time Signature PH, VENOUS 7.32 7.32 - 7.43 06/03/2022 [place] 6:09 AM [facility] LAB[facility] PCO2, VENOUS 41 41 - 51 06/03/2022 [place] mmHg 6:09 AM [facility] LAB[facility] PO2, VENOUS 45 (H) 35 - 40 06/03/2022 [place] mmHg 6:09 AM [facility] LAB[facility] HCO3,VENOUS 21 (L) 22 - 29 06/03/2022 [place] mmol/L 6:09 AM [facility] LABOR[facility] BASE EXCESS, -4.8 (L) -2.0 - 3.0 06/03/2022 [place] VENOUS, POCT 6:09 AM [facility] LAB[facility] O2 SATURATION, 83 (H) 70 - 75 % 06/03/2022 [place] VENOUS 6:09 AM [facility] LABOR[facility] PATIENT 37.0 Degrees C 06/03/2022 [place] TEMPERATURE 6:09 AM [facility] LAB[facility] Specimen Anatomical Collection Method / Collection Time Recei laura Time (Source) Location / Volume Laterality Blood VENOUS BLOOD Venipuncture / 06/03/2022 5:47 06/03/2022 6:02 SPECIMEN / Unknown Unknown AM CDT AM CDT Víctor Schuler DO CHEMISTRY Performing Organization Address City/State/ZIP Code Phon e Number [facility] [address] [place] [address] US RENAL BILATERAL (06/02/2022 3:34 PM CDT) [...] s are released immediately into your [employer] medical record. ??You may view this report [...] questions, please contact yo health care provider. INDICATION: Renal transplant. Urinary [...] 06/02/2022 5:1 8:43 PM (Electronically Signed) Víctor Ruiz Branfiorzaira DO US (ABNORMAL) URINE CULTURE (06/02/2022 12:45 AM CDT) [facility] Method Time Signature CULTURE RESULT (A) 06/04/2022 [facility] 7:59 AM CDT LABORATORY-JACKY TRAL LABORATORY CULTURE >100,000 CFU/mL 06/04/2022 [facility] Escherichia coli 7:59 AM CDT LABORATORY- [facility] TRAL LABORATORY CULTURE <10,000 CFU/mL 06/04/2022 [facility] Multiple 7:59 AM CDT LABORATORY-JACKY organisms TRAL [...] Organization Address City/State/ZIP Code Phon e Number [facility] [address] [place] [address] LABORATORY-CENTRAL 2000 LABORATORY INFLUENZA A/B/H1N1 PCR (06/02/2022 12:39 AM CDT) [facility] Method Time Signature INFLUENZA A NOT Detected 06/02/2022 [place] PCR 1:23 AM CDT [facility]ENTER LAB[facility]ATORY INFLUENZA B NOT Detected 06/02/2022 [place] PCR 1:23 AM CDT [facility] LAB[facility]ORY Specimen Anatomical Location / Collection Method Collection Selvin e Received Time (Source) Laterality / Volume Other SPECIMEN FROM Non-Blood / 06/02/2022 12:39 06/02/2022 NASOPHARYNGEAL Unknown AM CDT 12:52 AM CDT STRUCTURE / Unknown Cayetano Shay MD MICROBIOLOGY Performing Organization Address City/[facility]/ZIP Code Phon e Number [facility] LABOR[facility]ORY [address] [place] [address] EKG 12 Lead (06/02/2022 12:29 AM CDT) Component Value Ref Range Test Analysis Performed Pathologis t Method Time At Signature Interpretation Atrial fibrillation BEYON D NOW Nonspecific ST abnormality Abnormal ECG Ventricular Rate 79 BPM BEYOND NOW Atrial Rate 69 BPM BEYOND NOW P-R Interval ms BEYOND NOW QRS Duration 110 ms BEYOND NOW QT 362 ms BEYOND NOW QTc 415 ms BEYOND NOW P [place] degrees BEYOND NOW R [place] 26 degrees BEYOND NOW T [place] 26 degrees BEYOND NOW Specimen Anatomical Collection Method Collection Time Receive d Time (Source) Location / / Volume Laterality 06/02/2022 12:29 06/02/2022 4:21 AM CDT AM CDT Cayetano Shay MD EKG ORD Performing Organization Address City/[facility] Code Phon e Number BEYOND NOW [place], [place] (ABNORMAL) C-REACTIVE PROTEIN (06/02/2022 12:25 AM CDT) Analysis Performed At Patho logist Time [facility] C-REACTIVE 1.36 (H) <0.50 06/02/2022 [place] PROTEIN mg/dL 5:38 AM CDT [facility] LAB[facility]ORY Specimen Anatomical Collection Method Collection Time Receive d Time (Source) Location / / Volume Laterality Blood BLOOD SPECIMEN / Butterfly / 06/02/2022 12:25 022 Unknown Unknown AM CDT 12:29 AM CDT Giovanni Lara MD CHEMISTRY Performing Organization Address City/State/ZIP [facility] Phon e Number [facility] [address] [place] [address] LAB TRACKING EVENT (04/07/2022 11:40 AM CDT) Specimen Anatomical Collection Method Collection Time Receive d Time (Source) Location / / Volume Laterality Other (Other) Client Collect / 04/07/2022 11:40 2021 3:34 Unknown AM CDT PM CDT Doctor Unknown LAB BILL ONLY Performing Organization Address City/[facility]/ZIP Code Phon e Number [facility] [address] [place] [address] LABORATORY-CENTRAL 2000 LABORATORY PATH TISSUE EXAM (04/07/2022 11:40 AM CDT) Component Value Ref Test Analysis Performed At [facility] gist Range Method Time Signature Case Report Pathology Report ?Case: [id number] ? 04/12/2022 [facility] Authorizing Provider: ??Unkn own, Doctor ?Collected: ? 04/07/2022 1140 ? 11:31 AM LAB ORATORY-CE Ordering Location: ? [facility] ?Received: ?04/08/2022 1609 ? CDT N TRAL Pathologist: ? Ricky Lisa ? LABORATORY ? MD Jessie ? Specimen: ?Right Clavicl e ? Final A) SKIN, RIGHT CLAVICLE, WOUND, BIOPSY: 04/12/2022 [facility] Electronically Diagnosis 1. Ulceration with serum crust and underlying granulat ion tissue 11:31 AM LABORATORY-CE signed by 2. Negative for malignancy CDT NTR Ricky Roberts LABORATORY Jose mcgill MD on 04/12/20 22 at 11:31 AM Comment The presence 04/12/2022 [employer] HEALTH of blue and 11:31 AM LABORATORY-CE green ink are CDT NTRAL confirmed on LABORATORY tissue sections. Clinical Mr. Guthrie is 04/12/2022 [employer] Information a 72 y.o. with 11:31 AM LABORATORY-CE a right CDT NTRAL clavicle LABORATORY wound, post excision site. Gross A) Received in formalin, lab eled with the patient's name and right clavicle, are two skin punch biopsies. The first is a 0.3 x 0.3 x 0.4 cm skin punch biopsy. The skin surface displays a 0.2 x 0.1 cm 04/12/2022 [employer] Description depressed brown possible les ion. The [...] LABORATORY LH 04/08/2022 Microscopic The final 04/12/2022 [employer] Description diagnosis is 11:31 AM LABORATORY-CE based on CDT NTRAL microscopic LABORATORY examination of appropriate sections of all specimens. Additional 04/12/2022 [employer] Information Interpreted at [facility], Central Laboratory - [address], [place] [address] 11:31 AM LABORATORY-CE CDT NTRAL LABORATORY Specimen Anatomical Collection Method Collection Time Receive d Time (Source) Location / / Volume Laterality Other (Right 04/07/2022 11:40 04/08/2022 4:09 Clavicle) AM CDT PM CDT Doctor Unknown PATHOLOGY/CYTOLOGY Performing Organization Address City/State/ZIP Code Phon e Number [employer] [address] [place] [address] LABORATORY-CENTRAL 2000 LABORATORY from Last 3 Months Additional Health Concerns Infection Onset Date Last Indicated MRSA ClearanceComment: If >12 months sin ce positive culture, precautions can be discontinued if patient has no MRSA risk factors. 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 care, receiving hemodialysis, has chronic open wounds/skin [...] Group Dates MEDICARE PART MEDICARE PART A [id number] 2011-Prese A TTN: CLAIMS A - HB USE HB ONLY nt [address] [place] [address] MEDICARE PART MEDICARE PART B [id number] 2012-Pres A TTN: CLAIMS B - HB USE HB ONLY ent [address] [place] [address] MEDICARE - PB MEDICARE PB [id number] 2014-Prese ATTN: CLAIMS USE ONLY ONLY nt [address] [place] [address] BLUE CROSS BLUE CROSS OF [id number] 2016-Prese [address] [place] [address] BLUE CROSS BLUE CROSS OF [id number] 2013-Prese [address] [place] [address] MEDICARE PPS HC MEDICARE PPS [id number] 2011-Prese [address] [place] [address] (Home) [place] [id number] Diego Guthrie Personal/Family Self [phone] (Home) [place] [id number] Diego Guthrie Personal/Family Self [phone] (Home[place] [id number] Diego Guthrie Group Home Self [address] (Home) [facility] [place] [address] Advance Directives Documents on File Type Date Recorded 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
--- OUTSIDE RECORDS SUMMARY | 2022-07-05 14:39 | XMS_ITS | Clinical Summary ---
:1950 Author Organization [place] Address [facility] [place] [address] Care Team Providers Name Role Phone Momo [...] Problem list name updated by automated p [email or web address]. Provider to review Gout 12/02/2011 Peripheral neuropathy 12/02/2011 Diabetic retinopathy 12/02/2011 HTN, kidney transplant related 12/02/2011 Overview: Problem list name updated by automated p [email or web address]. Provider to review DM (diabetes mellitus), type 2 12/02/2011 History of tobacco use 12/02/2011 Thrombocytopenia 12/02/2011 Malaise and fatigue 12/02/2011 Overview: Problem list name updated by automated p [email or web address]. Provider to review Depression Resolved Problems Problem [...] Solid Organ Gretta Peacock, Transplant (C ovid government clerk reassessment/) 06/07/2022 Telephone Solid Organ Gretta Peacock, Transplant (C ovid government clerk reassessment ) 06/05/2022 Telephone Solid Organ Evelyn Schuster, government clerk 06/02/2022 Documentation Only NephSatish Reyes MD 05/06/2022 Telephone Solid Organ Gretta Peacock, Left Message To government clerk Call (Left VM 05/06/2022 at 11:55PM., Wante d to discuss lab results) 05/04/2022 Telephone Solid Organ Gretta Peacock Transplant La b government clerk (Elevated serum creatinine and proteinuria) 05/02/2022 Telephone Solid Organ Gretta Peacock, Erroneous government clerk encounter-disre sebastian 04/29/2022 External Order Lab Outside, Results Provider 04/13/2022 Telephone Solid Organ Gretta Peacock, Voicemail government clerk from Last 3 Months Immunizations Name Administration [...] Comments Blood Pressure 169/76 10/09/2019 2:35 PM POCKET SETTER LOCKSTITCH Pulse 67 10/09/2019 2:35 PM POCKET SETTER LOCKSTITCH Temperature 36.5 ??C (97.7 ??F) 10/17/2018 1:54 PM POCKET SETTER LOCKSTITCH Respiratory Rate 18 10/25/2016 4:39 PM POCKET SETTER LOCKSTITCH Oxygen Saturation 95% 10/09/2019 2:35 PM POCKET SETTER LOCKSTITCH Inhaled Oxygen Concentration - - Weight 132.5 kg (292 lb 1.6 oz) 10/09/2019 2:35 PM POCKET SETTER LOCKSTITCH Height 182.9 cm (6') 10/10/2017 2:25 PM POCKET SETTER LOCKSTITCH Body Mass Index 39.62 10/10/2017 2:25 PM POCKET SETTER LOCKSTITCH Plan of Treatment Health Maintenance Due Date [...] this topic Medical Devices Explanted Type Area Packer Denture Device Shelf Model / Identifier Expiration Serial / Date Lot Stent Ureteral Childress Renal Transplant [id number] Right: [employer] 11/19/2016 [id number] / Implanted: Qty: 1 on 02/02/2014 by Migel Viveros MD at [facility] [employer] / Explanted: Qty: 1 on 04/01/2014 by Celina Helton MD at [facility] [id number] Procedures Procedure Name Priority Date/Time Associated Comments [...] Platelets & Differential (04/29/2022 11:40 AM CDT) [facility] gist Method Time Signature WBC Count [...] LAB - BLOOD ORDERABLES Performing Organization Address City/[facility]/ZIP Code Phon e Number BREEZE [...] Address T ype Group Dates MEDICARE MEDICARE [id number] 2011-Prese [phone] ATTN [place] Medicare nt 40 [address] [place] [address] BCBS [place] OF [place] [id number] 2016-Prese [phone] [address] [address] Indemnity nt [address] [place] [address] Diego Guthrie Personal/Family Self [address] [place] (Home) [place] [address] Advance Directives For more information, please contact: [phone] Latest Code Status on File Code Status Date Activated Date Inactivated Comments Full Code 04/01/2014 9:03 AM Code Status History Code Status Date Activated Date Inactivated Comments Full Code 02/08/2014 7:12 AM 04/01/2014 9:03 AM Full Code 02/03/2014 12:56 AM 02/08/2014 7:12 AM Care Teams Special Forces Engineer Sergeant Relationship Specialty Start Date End Date Momo Forbes PCP - General Family Practice 01/02/14 [facility] [address] [place] [address] Joseph Quintana, Assigned Nephrology 03/29/21 MD Provider [address] [place] [address] [address] [place], [place] [id number]
--- OUTSIDE RECORDS SUMMARY | 2022-07-05 14:39 | XMS_ITS | Encounter Summary ---
:1950 Author Organization [place] Address [address] [place] [address] Care Team Providers Name Role Phone Momo Forbes Primary Care Provider Joseph Quintana MD Unavailable Reason for Visit Reason Onset Date Comments Call Back 06/18/2022 Medications Encounter Details Date Type Department Care Team Description 06/18/2022 Telephone [facility] Satish Gómez MD Call Back (Medications) Nephrology Clinic [address] [place] [phone] Social History Tobacco Use Types Packs/Day Years [...] 06/21/2022 2:28 PM CDT General Route to COAL TRAMMER Reason for call: Diego was returning a missed call Call back needed? Yes Return Call Needed Same as documented in contacts section When to return call?: Same day: Route High Priority Telephone Encounter - Luann Lagunas - 06/18/2022 12:12 PM CDT [facility] Call Center Phone Message May a [...] Please have Dr. Gómez reach [facility] to [facility] [phone] - [facility]. Thanks Action Taken: Message routed to: [facility] Neph Travel Screening: Not Applicable documented in this encounter Plan of Treatment Not on filedocumented as of this encounter Visit Diagnoses Not on filedocumented in this encounter Care Teams Patient Transporter Relationship Specialty Start Date End Date Momo Forbes PCP - General Family Practice 01/02/14 [facility] [address] [place] [address] Joseph Quintana, Assigned Nephrology 03/29/21 MD Provider 717 [facility] 353 [facility] 1932 [place], [place] [address] documented as of this encounter
--- OUTSIDE RECORDS SUMMARY | 2022-07-05 14:40 | XMS_ITS | Encounter Summary ---
:1950 Author Organization [place] Address [facility] [place] [address] Care Team Providers Name Role Phone Momo Forbes Primary Care Provider Joseph Quintana MD Unavailable Reason for Visit Reason Onset Date Comments Refill Request 08/25/2021 Prograf 0.5mg Encounter Details Date Type Department Care Team Description 08/25/[address] [facility] [place] Richey, Refil l Request (Prograf Transplant Clinic 0.5mg) [address] [place] [phone] Social History Tobacco Use Types [...] CPA: [facility] COLLABORATIVE AGREEMENT FOR IMMUNOSUPPRESSENT PRESCRIPTION MODIFICATION. Routing encounter to Transplant as an FYI. 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
--- OUTSIDE RECORDS SUMMARY | 2022-07-05 14:40 | XMS_ITS | Encounter Summary ---
:1950 Author Organization [place] Address [address] [place] [address] Care Team Providers Name Role Phone Momo Forbes Primary Care Provider Joseph Quintana MD Unavailable Encounter Details Date Type Department Care Team Description 11/16/2021 External Order [facility] Outside, Provide r Results Molecular Diagnostic s [address] [place] [phone] Social History Tobacco Use Types Packs/Day Years [...] CDT Verified by Yudi Ruano on . Feilcia Tate MD LAB - BLOOD ORDERABLES Performing Organization Address City/State/[facility] Code Phon e Number BREEZE PFT NON-INTERFACED (ONBASE SCANS) (ABNORMAL) Lipid Profile (11/16/2021 7:12 PM CDT) [facility] Method Time Signature Cholesterol 98 [...] Platelets & Differential (11/16/2021 4:35 PM CDT) [facility] Method Time Signature WBC Count [...] 01/02/14 [facility] [address] [place] [address] Joseph Quintana, Assigned Nephrology 03/29/21 Provider 7 [facility] 353 [facility] 1932 [place] [address] documented as of this encounter
--- OUTSIDE RECORDS SUMMARY | 2022-07-05 14:40 | XMS_ITS | Encounter Summary ---
:1950 Author Organization [place] Address [address] [place] [address] Care Team Providers Name Role Phone Momo Forbes Primary Care Provider Mariano, Joseph Durham MD Unavailable Reason for Visit Reason Onset Date Comments Left Message To Call 05/06/2022 Left 05/06/2022 at 11:55PM., Wanted to discuss lab results Encounter Details Date Type Department Care Team Description 05/06/2022 [facility] Gretta Peacock RN Left Message To Call Transplant Clinic (Left 05/06/2022 at 9 [facility] SE 11:55PM., Wanted to [place], [place] discuss lab results) [phone] Social History [...] filedocumented in this encounter Care Teams Director Correctional Agency Relationship Specialty Start Date End Date Momo Forbes PCP - General Family Practice 01/02/14 [facility] [address] [place] [address] Joseph Quintana, Assigned Nephrology 03/29/21 MD Provider 717 [facility] 353 [facility] [address] [place] [address] documented as of this encounter
--- OUTSIDE RECORDS SUMMARY | 2022-07-05 14:40 | XMS_ITS | Encounter Summary ---
:1950 Author Organization [place] Address [facility] [place] [address] Care Team Providers Name Role Phone Momo Forbes Primary Care Provider Joseph Quintana MD Unavailable Reason for Visit Reason Onset Date Comments Transplant 06/07/2022 Covid reassessment Encounter Details Date Type Department Care Team Description 06/07/2022 Telephone [facility] Gretta Peacock RN Trans [facility] [address] [place] [phone] Social History Tobacco Use Types Packs/Day [...] that. Mycophenolate was held while inpatient at [facility]. Patient was discharged yesterday, Patient resumed his usual dose of MMF 750 mg bid. Current symptoms: cough, denies SOB. States he is feeling well. Will update transplant nephrology. Gretta Peacock RN Dust Box Tender [phone] ADDENDUM: Satish Gómez MD Sveiven, Sara, RN I would actually have him take MMF 500mg bid and if feeling ok in 1 week increase to 750mg bid Patient v/u of taking MMF 500 mg bid for one week. Will reassess symptoms in one week. Gretta Peacock associate oracle retailDust Box Tender [phone] documented in this encounter Plan of Treatment Not on filedocumented as of this encounter Visit Diagnoses Not on filedocumented in this encounter Care Teams Letterpress Setter Relationship Specialty Start Date End Date Momo Forbes PCP - General Family Practice 01/02/14 [facility] [address] [place] [address] Joseph Quintana, Assigned Nephrology 03/29/21 Provider [address] [place], [place] [address] documented as of this encounter
--- OUTSIDE RECORDS SUMMARY | 2022-07-05 14:40 | XMS_ITS | Encounter Summary ---
:1950 Author Organization [place] Address [facility] [place] [address] Care Team Providers Name Role Phone Momo Forbes Primary Care Provider Joseph Quintana MD Unavailable Reason for Visit Reason Onset Date Comments Transplant 09/22/2021 Encounter Details Date Type Department Care Team Description [facility]/22[facility] BOGDAN Nam [address] [place] [address] [phone] Social History Tobacco Use Types Packs/Day Years Used Date Smoking Tobacco: Former Cigars Quit : 08/22/2006 Smokeless Tobacco: Never Alcohol Use Standard Drinks/Week Comments Yes 0 (1 standard drink = 0.6 oz pure alcoho l) occasional drink. Sex Assigned at Date Recorded Not on file documented as of this encounter Miscellaneous Notes Telephone Encounter - Barbie Ugalde RN - 09/22/2021 2:16 PM ALTERATION SPECIALIST Post discharge from [facility] 09/20/21; to rehab/TCU due to wound on stump; can't wear prosthetic until healed. UTI on Cephelaxin 500 mg TID. Katharine TCU Unit Phone [facility] station [phone] Phone BOGDAN Baker [phone] Discussed Prograf dose was 1.5 mg at hospital. Should be 1 mg AM/0.5 mg PM. Repeat level with [facility] 09/24/21. Verbal orders taken by admissions. Barbie Crisostomo, RN, BSN Solid Organ Transplant, Post Kidney and Pancreas Transplant Unhairing Inspector [phone] RATION SPECIALIST Telephone Encounter - MichaelAzael Deann - 09/22/2021 12:09 PM CST Katharine under the new name [facility] TCU has questions regarding medicationsand lab. RATION SPECIALIST documented in this encounter Plan of Treatment Not on filedocumented as of this encounter Visit Diagnoses Not on filedocumented in this encounter Care Teams Charter Boat Operator Relationship Specialty Start Date End Date Momo Forbes PCP - General Family Practice 01/02/14 [facility] [address] [place] [address] Joseph Quintana, Assigned Nephrology 03/29/21 MD Provider [address] [place] [address] 1932 [place] [address] documented as of this encounter
--- OUTSIDE RECORDS SUMMARY | 2022-07-05 14:40 | XMS_ITS | Encounter Summary ---
:1950 Author Organization [place] Address [address] [place] [address] Care Team Providers Name Role Phone Momo Forbes Primary Care Provider Joseph Quintana MD Unavailable Encounter Details Date Type Department Care Team Description 12/09/2021 External Order [facility] Outside, Provide r Results Molecular Diagnostic s [address] [place] [phone] Social History Tobacco Use Types Packs/Day Years [...] (12/09/2021 11:50 AM CDT) Analysis Performed At [facility] logist Time Signature WBC Count 7.68 [...] filedocumented in this encounter Care Teams Social Secretary Relationship Specialty Start Date End Date Momo Forbes PCP - General Family Practice 01/02/14 [facility] [address] [place] [address] Joseph Quintana, Assigned Nephrology 03/29/21 MD Provider [address] [place] [address] 1932 [place], [place] [address] documented as of this encounter
--- OUTSIDE RECORDS SUMMARY | 2022-07-05 14:40 | XMS_ITS | Encounter Summary ---
:1950 Author Organization [place] Address [address] [place] [address] Care Team Providers Name Role Phone Momo Forbes Primary Care Provider Joseph Quintana MD Unavailable Reason for Visit Reason Onset Date Comments Transplant Lab 05/04/2021 Encounter Details Date Type Department Care Team Description 05/04/2021 Telephone [facility] Transplant Krys Garcia, Transplant Lab Clinic RN [address] [place] [address] [phone] Social History Tobacco Use Types [...] maroon colored stools. Stateshe had colonoscopy with Jerome about a year ago. Appears in CareEverywhere colonoscopy was 03/20/2015. Latrell denies infectious symptoms currently but reports he had R foot surgery at [facility] this last winter for diabetic foot ulcer. Infection in bottom of foot; laid up since Sep. Pretty well healed except a little speck. Follows up with Dr. Chatterjee. Will check iron panel on next labs. Orders sent. Barbie Ugalde, RN, BSN Solid Organ Transplant, Post Kidney and Pancreas Transplant Stunt Woman [phone] Telephone Encounter - Krys Garcia RN - 05/04/2021 8:09 AM CDT ISSUE: Falling hemoglobin. documented in this encounter Plan of Treatment Not on filedocumented as of this encounter Visit Diagnoses Not on filedocumented in this encounter Care Teams Structural Design Engineer Relationship Specialty Start Date End Date Momo Forbes PCP - General Family Practice 01/02/14 [facility] [address] [place] [address] Joseph Quintana, Assigned Nephrology 03/29/[address] [place] [address] 1932 [place], [place] [address] documented as of this encounter
--- OUTSIDE RECORDS SUMMARY | 2022-07-05 14:40 | XMS_ITS | Encounter Summary ---
:1950 Author Organization [place] Address [address] [place] [address] Care Team Providers Name Role Phone Momo Forbes Primary Care Provider Mariano, Joseph Durham MD Unavailable Reason for Visit Reason Onset Date Comments Transplant Lab 12/10/2021 Encounter Details Date Type Department Care Team Description 12/10/2021 Telephone [facility] Transplant Mati Recinos RN Transplant Lab Clinic [address] [place] [address] [phone] Social History Tobacco Use Types Packs/Day [...] on filedocumented in this encounter Care Teams Direct Support Professional Relationship Specialty Start Date End Date Momo Forbes PCP - General Family Practice 01/02/14 [facility] [address] [place] [address] Joseph Quintana, Assigned Nephrology 03/29/21 MD Provider [address] [place] [address] 1932 [place], [place] [id number] documented as of this encounter
--- OUTSIDE RECORDS SUMMARY | 2022-07-05 14:40 | XMS_ITS | Encounter Summary ---
:1950 Author Organization [place] Address [address] [place] [address] Care Team Providers Name Role Phone Momo Forbes Primary Care Provider Joseph Quintana MD Unavailable Encounter Details Date Type Department Care Team Description 01/27/2021 External Order [facility] Outside, Provider Results Transplant Clinic [address] [place] [phone] Social History Tobacco Use Types Packs/Day [...] with platelets differential (01/27/2021 11:45 AM CDT) [facility] gist Method Time Signature WBC [...] on filedocumented in this encounter Care Teams Automation Technologist Relationship Specialty Start Date End Date Momo Forbes PCP - General Family Practice 01/02/14 [facility] [address] [place] [address] Joseph Quintana, Assigned Nephrology 03/29/21 MD Provider [address] [place] [address] 1932 [place] [address] documented as of this encounter
--- OUTSIDE RECORDS SUMMARY | 2022-07-05 14:40 | XMS_ITS | Encounter Summary ---
:1950 Author Organization [place] Address [facility] [place] [address] Care Team Providers Name Role Phone Momo Forbes Primary Care Provider Mariano, Joseph Durham MD Unavailable Reason for Visit Reason Onset Date Comments Voicemail 04/13/2022 Encounter Details Date Type Department Care Team Description 04/13/2022 Telephone [facility] Transplant Obdulia Peacock, RN Voicemail Clinic [address] [place] [address] [phone] Social History Tobacco Use Types Packs/Day [...] to patient via mail Gretta Peacock RN Regulatory Affairs Internship [phone] Telephone Encounter - Adriana Raza - 04/13/2022 2:31 PM CDT Voicemail Date/Time: 04/13/22 2:27 pm Reason for call: Diego received a letter stating we have been trying ot reach him so he was responding documented in this encounter Plan of Treatment Not on filedocumented as of this encounter Visit Diagnoses Not on filedocumented in this encounter Care Teams Head Rigger Relationship Specialty Start Date End Date Momo Forbes PCP - General Family Practice 01/02/14 [facility] [address] [place] [address] Joseph Quintana, Assigned Nephrology 03/29/21 MD Provider 7 [facility] 353 [facility] [address] [place] [address] documented as of this encounter
--- OUTSIDE RECORDS SUMMARY | 2022-07-05 14:40 | XMS_ITS | Encounter Summary ---
:1950 Author Organization [place] Address [address] [place] [address] Care Team Providers Name Role Phone Momo Forbes Primary Care Provider Joseph Quintana MD Unavailable Reason for Visit Reason Onset Date Comments Transplant Lab 05/04/2022 Elevated serum creat inine and proteinuria Encounter Details Date Type Department Care Team Description 05/04/2022 Telephone [facility] Gretta Peacock RN Trans plant Lab (Elevated Transplant Clinic serum creatinine and [address] proteinuria) [place] [phone] Social History Tobacco Use Types [...] on filedocumented in this encounter Care Teams Spanish Moss Picker Relationship Specialty Start Date End Date Momo Forbes PCP - General Family Practice 01/02/14 [facility] [address] [place] [address] Joseph Quintana, Assigned Nephrology 03/29/21 Provider [address] [place] [address] documented as of this encounter
--- OUTSIDE RECORDS SUMMARY | 2022-07-05 14:40 | XMS_ITS | Encounter Summary ---
:1950 Author Organization [place] Address [address] [place] [address] Care Team Providers Name Role Phone Momo Forbes Primary Care Provider Joseph Quintana MD Unavailable Encounter Details Date Type Department Care Team Description 01/07/2021 External Order [facility] Outside, Provider Results Transplant Clinic [address] [place] [phone] Social History Tobacco Use Types Packs/Day [...] on filedocumented in this encounter Care Teams Opthalmic Tech Relationship Specialty Start Date End Date Momo Forbes PCP - General Family Practice 01/02/14 [facility] [address] [place] [address] Joseph Quintana, Assigned Nephrology 03/29/21 MD Provider 717 [facility] 353 [facility] 1932 [place] [address] documented as of this encounter
--- OUTSIDE RECORDS SUMMARY | 2022-07-05 14:40 | XMS_ITS | Encounter Summary ---
:1950 Author Organization [place] Address [facility] [place] [address] Care Team Providers Name Role Phone Momo Forbes Primary Care Provider Joseph Quintana MD Unavailable Reason for Visit Reason Onset Date Comments Refill Request 08/25/2021 Encounter Details Date Type Department Care Team Description 08/25/2021 Refill [facility] Transplant Debbie Calderon LPN Refill Request Clinic [address] [place] [phone] Social History Tobacco Use Types [...] documented in this encounter Care Teams Ux Specialist Relationship Specialty Start Date End Date Momo Forbes PCP - General Family Practice 01/02/14 [facility] 1999 [place] [address] Joseph Quintana, Assigned Nephrology 03/29/[address] [place] [address] 353 [facility] 1932 [place] [address] documented as of this encounter
--- OUTSIDE RECORDS SUMMARY | 2022-07-05 14:40 | XMS_ITS | Encounter Summary ---
:1950 Author Organization [place] Address [address] [place] [address] Care Team Providers Name Role Phone Momo Forbes Primary Care Provider Mariano, Joseph Durham MD Unavailable Reason for Visit Reason Onset Date Comments Transplant 11/24/2021 Encounter Details Date Type Department Care Team Description 11/24/2021 Telephone [facility] Transplant Obdulia Peacock, traffic engineering technician Clinic [address] [place] [address] [phone] Social History Tobacco Use Types Packs/Day [...] had labs drawn ~one week ago at [facility], however results have not beenfaxed to [facility]. PLAN: call lab to have results faxed OUTCOME: New labs orders sent. Most recent bmp and cbc requested from october 2021. Tac and UPC due. Left detailed message with instructions to obtain tacrolimus trough level and UPC at earliest convenience. Asked for CB to confirm understanding. Gretta Peacock traffic engineering technicianObservatory Director [phone] Telephone Encounter - Azael Rodriguez - 11/24/2021 3:32 PM CDT Patient called to touch base with the RNCC regarding some questions. documented in this encounter Plan of Treatment Not on filedocumented as of this encounter Visit Diagnoses Not on filedocumented in this encounter Care Teams Mail Censor Relationship Specialty Start Date End Date Momo Forbes PCP - General Family Practice 01/02/14 [facility] [address] [place] [address] Joseph Quintana, Assigned Nephrology 03/29/21 MD Provider [address] [place] [address] 1932 [place] [address] documented as of this encounter
--- OUTSIDE RECORDS SUMMARY | 2022-07-05 14:40 | XMS_ITS | Encounter Summary ---
:1950 Author Organization [place] Address [address] [place] [address] Care Team Providers Name Role Phone ForbesMomo Primary Care Provider Reason for Visit Reason Comments RECHECK Follow Up [place] Encounter Details Date Type Department Care Team Description 03/05/[address] [facility] Joseph Quintana HTN, kevan dney transplant related (Primary Dx); Nephrology Clinic MD Herminio Kidney replaced by transplant; [address] Aftercare following organ tr ansplant; [address] [place] [address] [place] 353 [facility] Immunosu ppression (H); SE 1932 Vitamin D deficiency; [place] [phone] Social History Tobacco Use Types Packs/Day Years [...] would you like to be contacted at? [phone] How would you like to obtain your [...] and ended up being discharged to a residential. He is doing better and now back [...] unspecified documented in this encounter Care Teams International Representative Relationship Specialty Start Date End Date Momo Forbes PCP - General Family Practice 01/02/14 [facility] 1999 [place] [address] documented as of this encounter
--- OUTSIDE RECORDS SUMMARY | 2022-07-05 14:40 | XMS_ITS | Encounter Summary ---
:1950 Author Organization [place] Address [address] [place] [address] Care Team Providers Name Role Phone Momo Forbes Primary Care Provider Joseph Quintana MD Unavailable Encounter Details Date Type Department Care Team Description 04/29/2022 External Order [facility] Outside, Provide r Results Molecular Diagnostic s [address] [place] [phone] Social History Tobacco Use Types Packs/Day Years [...] City/[facility] Code Phon e Number [...] on filedocumented in this encounter Care Teams Division Superintendent Relationship Specialty Start Date End Date Momo Forbes PCP - General Family Practice 01/02/14 [facility] [address] [place] [address] Joseph Quintana, Assigned Nephrology 03/29/21 Provider 717 [facility] 353 [facility] 1932 [place] [address] documented as of this encounter
--- OUTSIDE RECORDS SUMMARY | 2022-07-05 14:40 | XMS_ITS | Encounter Summary ---
:1950 Author Organization [place] Address [address] [place] [address] Care Team Providers Name Role Phone Momo Forbes Primary Care Provider Joseph Quintana MD Unavailable Encounter Details Date Type Department Care Team Description 06/05/2022 Telephone [facility] Evelyn Schuster RN Transplant Clinic [address] [phone] [facility] [phone] [place] [address] (Wo rk) Social History Tobacco [...] on filedocumented in this encounter Care Teams Word Processor Technician Relationship Specialty Start Date End Date Momo Forbes PCP - General Family Practice 01/02/14 [facility] [address] [place] [address] Joseph Quintana, Assigned Nephrology 03/29/21 MD Provider 7 [facility] 353 [facility] 1932 [place], [place] [id number] documented as of this encounter
--- OUTSIDE RECORDS SUMMARY | 2022-07-05 14:40 | XMS_ITS | Encounter Summary ---
:1950 Author Organization [place] Address [address] [place] [address] Care Team Providers Name Role Phone Momo Forbes Primary Care Provider Joseph Quintana MD Unavailable Encounter Details Date Type Department Care Team Description 01/19/[address] [facility] Outside, Provide r Results Molecular Diagnostic s [address] [place] [phone] Social History Tobacco Use Types Packs/Day Years [...] External Culture Results (01/19/2022 12:11 PM CDT) [facility] Method Time Signature Scan Culture See Scanned NON-INTERFACE Results Report D (ONBASE (External) SCANS) Specimen (Source) Anatomical Collection Method Collection Time Re ceived Time Location / / Volume Laterality 01/19/2022 12:11 PM CDT Narrative [facility] - 01/25/2022 2:48 PM CDT Verified by Priscilla Mcdaniel on 01/25/2022. Provider Outside LABORATORY Performing Organization Address City/[facility]/ZIP Code Phon e Number [facility] [...] LAB - URINE ORDERABLES Performing Organization Address City/[facility] Phon e Number [facility] NON-INTERFACED (ONBASE [...] UA with Microscopic (01/19/2022 11:16 AM CDT) [facility] gist Method Time Signature Color Urine YEL YELLOW NON-INTERFAC (External) ED (ONBASE SCANS) Appearance Urine CLEAR CLEAR NON-INTERFAC (External) ED (ONBASE SCANS) Glucose Urine 2+ NEGATIVE NON-INTERFAC (External) ED (ONBASE SCANS) Bilirubin Urine NEG NEGATIVE NON-INTERFAC (External) ED (ONBASE SCANS) Ketones Urine NEG NEGATIVE NON-INTERFAC (External) ED (ONBASE SCANS) Specific [place] 1.010 1.005 - NON-INTERFAC Urine (External) 1.030 [...] filedocumented in this encounter Care Teams Cloth Desizing Range Tender Relationship Specialty Start Date End Date Momo Forbes PCP - General Family Practice 01/02/14 [facility] 1999 [place] [address] Joseph Quintana, Assigned Nephrology 03/29/[address] [place] [address] 1932 [place], [place] [id number] documented as of this encounter
--- OUTSIDE RECORDS SUMMARY | 2022-07-05 14:40 | XMS_ITS | Encounter Summary ---
:1950 Author Organization [place] Address [address] [place] [address] Care Team Providers Name Role Phone Momo Forbes Primary Care Provider Joseph Quintana MD Unavailable Reason for Visit Reason Onset Date Comments Transplant 01/21/2022 Hyperglycemia, eleva moni [facility] Encounter Details Date Type Department Care Team Description 01/21/2022 Telephone [facility] Gretta Peacock RN Trans plant Transplant Clinic (Hyperglycemia, elevated 909 [facility]) [place] [address] Social History Tobacco Use Types [...] 12:07 PM CDT ISSUE: trend up in [facility], hyperglycemia OUTCOME: phone call attempted X3. Will send letter via mail. Gretta Peacock repackerRn Medication [phone] documented in this encounter Plan of Treatment Not on filedocumented as of this encounter Visit Diagnoses Not on filedocumented in this encounter Care Teams Pta Relationship Specialty Start Date End Date Mmoo Forbes PCP - General Family Practice 01/02/14 [facility] [address] [place] [address] Joseph Quintana, Assigned Nephrology 03/29/21 MD Provider [address] [place] [address] 1932 [place] [address] documented as of this encounter
--- OUTSIDE RECORDS SUMMARY | 2022-07-05 14:40 | XMS_ITS | Encounter Summary ---
:1950 Author Organization [place] Address [address] [place] [address] Care Team Providers Name Role Phone Momo Forbes Primary Care Provider Joseph Quintana MD Unavailable Encounter Details Date Type Department Care Team Description 04/30/2021 External Order [facility] Outside, Provide r Results Molecular Diagnostic s [address] [place] [phone] Social History Tobacco Use Types Packs/Day Years [...] Platelets & Differential (04/30/2021 11:20 AM CDT) [facility] gist Method Time [...] filedocumented in this encounter Care Teams Machine Brush Maker Relationship Specialty Start Date End Date Momo Forbes PCP - General Family Practice 01/02/14 [facility] [address] [place] [address] Joseph Quintana, Assigned Nephrology 03/29/21 MD Provider [address] [place] [address] 1932 [place] [address] documented as of this encounter
--- OUTSIDE RECORDS SUMMARY | 2022-07-05 14:40 | XMS_ITS | Encounter Summary ---
:1950 Author Organization [place] Address [address] [place] [address] Care Team Providers Name Role Phone Momo Forbes Primary Care Provider Encounter Details Date Type Department Care Team Description 01/30/2021 Telephone [facility] Transplant Viv Torres RN [place] [phone] Social History Tobacco Use Types Packs/Day [...] not included. Message Received: Today Beny Staton, [facility] Barbie Ugalde, BOGDAN Diego has not ordered tacro 0.5mg in over a year. ??He just ordered 1mg today but not the 0.5mg. Beny Staton [facility] Specialty Pharmacist [phone] BACKFILLER task: Can you please call Diego to find out what dose of tacrolimus he is taking and notify coordinator if different than what is prescribed. Recommend repeat tacrolimus level for previously elevated level 7.3, goal 4-6. Thank you, Barbie Ugalde RN, BSN Solid Organ Transplant, Post Kidney and Pancreas Transplant Balance Engineer [phone] Telephone Encounter - Viv Torres RN - [...] documented in this encounter Care Teams Manager Cardiac Cath Relationship Specialty Start Date End Date Momo Forbes PCP - General Family Practice 01/02/14 [place] [address] documented as of this encounter
--- OUTSIDE RECORDS SUMMARY | 2022-07-05 14:40 | XMS_ITS | Encounter Summary ---
:1950 Author Organization [place] Address [address] [place] [address]. [place] [address] Care Team Providers Name Role Phone Momo Forbes Primary Care Provider Joseph Quintana MD Unavailable Reason for Visit Reason Onset Date Comments Medication Refill Refill Request 08/20/2021 Encounter Details Date Type Department Care Team Description 08/20/2021 Refill [facility] Joseph Quintana on Refill; Nephrology Clinic MD Herminio Refill Request [address] 909 [facility] 353 [facility] 1932 [place], [place] [phone] Social History Tobacco Use Types Packs/Day Years [...] transplant documented in this encounter Care Teams Heel Seater Relationship Specialty Start Date End Date Momo Forbes PCP - General Family Practice 01/02/14 [facility] [address] [place] [address] Joseph Quintana, Assigned Nephrology 03/29/21 MD Provider 717 [facility] 353 [facility] 1932 [place] [address] documented as of this encounter
--- OUTSIDE RECORDS SUMMARY | 2022-07-05 14:40 | XMS_ITS | Encounter Summary ---
:1950 Author Organization [place] Address [address] [place] [address] Care Team Providers Name Role Phone Momo Forbes Primary Care Provider Joseph Quintana MD Unavailable Reason for Visit Reason Onset Date Comments Transplant 06/17/2022 Covid reassessment Encounter Details Date Type Department Care Team Description 06/17/2022 Telephone [facility] Gretta Peacock RN [facility] [address] [place] [phone] Social History Tobacco Use Types Packs/Day [...] Covid + 06/01/[address] [facility] where MMF was held. Resumed MMF at 500 mg bid at discharge. PLAN: call to assess symptoms on Covid 19. If symptoms have improved okay to increase MMF to baseline dose of 750 mg bid Satish óGmez MD Sveiven, Sara, RN I would actually have him take MMF 500mg bid and if feeling ok in 1 week increase to 750mg bid OUTCOME: Patient was readmitted to [facility] with complications of Covid 19 per patient. Difficult to hear patient as he has bad cell phone service at hospital. Spoke with staff member on inpatient unit. Patient is private information unable to be given to RNCC. Provided provider to providernumber to staff member to pass along to RN or inpatient provider. V/U of calling [facility] transplant nephrology to discuss IS. Gretta Peacock apprentice plumberWindow Cleaner [phone] documented in this encounter Plan of Treatment Not on filedocumented as of this encounter Visit Diagnoses Not on filedocumented in this encounter Care Teams Shrimping Boat Captain Relationship Specialty Start Date End Date Momo Forbes PCP - General Family Practice 01/02/14 [facility] 1999 [place] [address] Joseph Quintana, Assigned Nephrology 03/29/21 MD Provider [address] [place] [address] 1932 [place] [address] documented as of this encounter
--- OUTSIDE RECORDS SUMMARY | 2022-07-05 14:40 | XMS_ITS | Encounter Summary ---
:1950 Author Organization [place] Address [facility] [place] [address] Care Team Providers Name Role Phone Momo Forbes Primary Care Provider Reason for Visit Reason Onset Date Comments Transplant 02/03/2021 spoke w pt and donna rmed annual neph appt on 03/05/21 Encounter Details Date Type Department Care Team Description 02/03/2021 Telephone [facility] Barbie Ugalde (spoke w pt Transplant Clinic BOGDAN Nam and confirmed annual 909 [facility] neph appt on 03/05/21) [place] [phone] Social History Tobacco Use Types [...] on filedocumented in this encounter Care Teams Entry Level Staff Accountant Relationship Specialty Start Date End Date Momo Forbes PCP - General Family Practice 01/02/14 [facility] 1999 [place], [place] [phone] documented as of this encounter
--- OUTSIDE RECORDS SUMMARY | 2022-07-05 14:40 | XMS_ITS | Encounter Summary ---
:1950 Author Organization [place] Address [address] [place] [address] Care Team Providers Name Role Phone Momo Forbes Primary Care Provider Mariano, Joseph Durham MD Unavailable Reason for Visit Reason Onset Date Comments Transplant 12/02/2021 Encounter Details Date Type Department Care Team Description 12/02/2021 Telephone [facility] Transplant Obdulia Peacock, inside sales trainer Clinic [address] [place] [address] [phone] Social History Tobacco Use Types Packs/Day [...] confirm he received message. Gretta Peacock RN Larry Operator [phone] ADDENDUM: left message for patient stating he has active orders at preferred lab. Asked to please obtain a full set of transplant labs as soon as possible. Gretta Peacock inside sales trainerLarry Operator [phone] documented in this encounter Plan of Treatment Not on filedocumented as of this encounter Visit Diagnoses Not on filedocumented in this encounter Care Teams Supervisor Drying Relationship Specialty Start Date End Date Momo Forbes PCP - General Family Practice 01/02/14 [facility] [address] [place] [address] Joseph Quintana, Assigned Nephrology 03/29/[address] [place] [address] 1932 [place] [address] documented as of this encounter
--- OUTSIDE RECORDS SUMMARY | 2022-07-05 14:40 | XMS_ITS | Encounter Summary ---
:1950 Author Organization [place] Address [facility] [place] [address] Care Team Providers Name Role Phone Momo Forbes Primary Care Provider Joseph Quintana MD Unavailable Encounter Details Date Type Department Care Team Description 08/25/2021 Orders Only [facility] Jose, Kidney tr ansplanted; Transplant Clinic BOGDAN Marcano -donor kidney transp lant recipient [address] [place] [phone] Social History Tobacco Use Types [...] transplant documented in this encounter Care Teams Training Development Manager Relationship Specialty Start Date End Date Momo Forbes PCP - General Family Practice 01/02/14 [facility] 1999 [place] [address] Joseph Quintana, Assigned Nephrology 03/29/21 Provider 717 [facility] 353 [facility] 1932 [place], [place] [address] documented as of this encounter
--- OUTSIDE RECORDS SUMMARY | 2022-07-05 14:40 | XMS_ITS | Encounter Summary ---
:1950 Author Organization [place] Address [facility] hospital0 [facility] [place] [address] Care Team Providers Name Role Phone Momo [...] filedocumented in this encounter Care Teams Fish Conservationist Relationship Specialty Start Date End Date Momo Forbes PCP - General Family Practice 01/02/14 [facility] 1999 [place] [address] documented as of this encounter
--- OUTSIDE RECORDS SUMMARY | 2022-07-05 14:40 | XMS_ITS | Encounter Summary ---
:1950 Author Organization [place] Address [facility] [place] [address] Care Team Providers Name Role Phone Momo Forbes Primary Care Provider Joseph Quintana MD Unavailable Encounter Details Date Type Department Care Team Description 02/02/2021 External Order [facility] Outside, Provider Results Transplant Clinic [address] [place] [phone] Social History Tobacco Use Types Packs/Day [...] by Cassie Florian on 02/04/2021. Performed by: [facility] 1999 [place], [place] ??[address] Patient Reported LABORATORY Performing Organization Address City/State/ZIP Code Phon e Number JESSICA PFT COVID-19 EXTERNAL COVID-19 [place] [address], [facility] RESULTS Result Scanned into Patient Record by [employer] Refer to Result Comment/Narrative for exact performing laboratory documented in this encounter Visit Diagnoses Not on filedocumented in this encounter Care Teams Roundhouse Worker Relationship Specialty Start Date End Date Momo Forbes PCP - General Family Practice 01/02/14 [facility] [address] [place] [address] Joseph Quintana, Assigned Nephrology 03/29/21 MD Provider 717 [facility] 353 [facility] 1932 [place] [address] documented as of this encounter
--- OUTSIDE RECORDS SUMMARY | 2022-07-05 14:40 | XMS_ITS | Encounter Summary ---
:1950 Author Organization [place] Address 2450 [facility] [place] [address] Care Team Providers Name Role Phone Momo Forbes Primary Care Provider Joseph Quintana MD Unavailable Encounter Details Date Type Department Care Team Description 06/02/2022 Documentation Only [facility] Dash Gómez am, MD Nephrology Clinic [address] [place] [phone] Social History Tobacco Use Types Packs/Day Years [...] Satish Gómez MD, [place] Transplant Nephrology Pager: [phone] documented in this encounter Plan of Treatment Not on filedocumented as of this encounter Visit Diagnoses Not on filedocumented in this encounter Care Teams Airline Station Agent Relationship Specialty Start Date End Date Momo Forbes PCP - General Family Practice 01/02/14 [facility] [address] [place] [address] Joseph Quintana, Assigned Nephrology 03/29/21 MD Provider 717 [facility] 353 [facility] 1932 [place] [address] documented as of this encounter
--- OUTSIDE RECORDS SUMMARY | 2022-07-05 14:40 | XMS_ITS | Encounter Summary ---
:1950 Author Organization [place] Address [address] [place] [address] Care Team Providers Name Role Phone Momo Forbes Primary Care Provider Reason for Visit Reason Onset Date Comments Transplant 01/07/2021 Encounter Details Date Type Department Care Team Description 01/07/[address] [facility] Barbie Ugalde nsplanlynda Transplant Clinic BOGDAN Nam [address] [place] [address] [phone] Social History Tobacco Use Types Packs/Day [...] CDT Patient Call: Transplant Lab/Orders Route to LASER TECHNICIAN Post Transplant Days: 2530 When patient is less than 60 days post-transplant, route high priority Reason for Call: Annual lab reorder fax labs to [facility] lab at [phone] Labs drawn Waiting fororders Callback needed? No documented in this encounter Plan of Treatment Not on filedocumented as of this encounter Visit Diagnoses Not on filedocumented in this encounter Care Teams Ict Support Engineer Relationship Specialty Start Date End Date Momo Forbes PCP - General Family Practice 01/02/14 [facility] [address] [place] [address] documented as of this encounter
--- OUTSIDE RECORDS SUMMARY | 2022-07-05 14:40 | XMS_ITS | Encounter Summary ---
:1950 Author Organization [place] Address [facility] [place] [address] Care Team Providers Name Role Phone Momo Forbes Primary Care Provider Joseph Quintana MD Unavailable Reason for Visit Reason Onset Date Comments Erroneous encounter-disregard 05/02/2022 Encounter Details Date Type Department Care Team Description 05/02/2022 [facility] Gretta Peacock, BOGDAN [facility] Transplant Clinic encounter-disregard [address] [place] [address] Social History Tobacco Use Types [...] on filedocumented in this encounter Care Teams Beverage Sales Consultant Relationship Specialty Start Date End Date Momo Forbes PCP - General Family Practice 01/02/14 [facility] [address] [place] [address] Joseph Quintana, Assigned Nephrology 03/29/21 Provider 717 [facility] 353 [facility] [address] [place] [address] documented as of this encounter
--- OUTSIDE RECORDS SUMMARY | 2022-07-05 14:41 | XMS_ITS | Encounter Summary ---
:1950 Author Organization [place] Address [facility] [place] [address] Care Team Providers Name Role Phone Momo [...] filedocumented in this encounter Care Teams Medical Examiner Relationship Specialty Start Date End Date Momo Forbes PCP - General Family Practice 01/02/14 [facility] [address] [place] [address] documented as of this encounter
--- OUTSIDE RECORDS SUMMARY | 2022-07-05 14:41 | XMS_ITS | Encounter Summary ---
:1950 Author Organization [place] Address [facility] [place] [address] Care Team Providers Name Role Phone Momo Forbes Primary Care Provider Joseph Quintana MD Unavailable Encounter Details Date Type Department Care Team Description 07/08/2020 External Order [facility] Outside, Provider Results Transplant Clinic [address] [place] [phone] Social History Tobacco Use Types Packs/Day [...] 9:23 AM Results f or this RESULTS RAIL OPERATIONS CONTROLLER procedure are i n the results section. documented in this encounter Results External Lab Results (07/08/2020 9:23 AM RAIL OPERATIONS CONTROLLER) Analysis Performed At Patho logist Time Signature Scan Lab View Image LABDE SCAN Results (External) Comment: HLA Antibody Screen, Class I an d Class II Specimen (Source) Anatomical Collection Method Collection Time Re ceived Time Location / / Volume Laterality 07/08/2020 9:23 AM RAIL OPERATIONS CONTROLLER Narrative [facility] - 07/16/2020 2:42 PM RAIL OPERATIONS CONTROLLER Verified by Ruperto Pepper on 07/15/20 20. Patient Reported LABORATORY Performing Organization Address City/State/ZIP Code Phon e Number [facility] LABDE SCAN documented in this encounter Visit Diagnoses Not on filedocumented in this encounter Care Teams Tube Coater Relationship Specialty Start Date End Date Momo Forbes PCP - General Family Practice 01/02/14 [facility] [address] [place] [address] Joseph Quintana, Assigned Nephrology 03/29/21 MD Provider [address] [place] [address] [address] [place], [place] [id number] documented as of this encounter
--- OUTSIDE RECORDS SUMMARY | 2022-07-05 14:41 | XMS_ITS | Encounter Summary ---
:1950 Author Organization [place] Address [facility]0 [facility] [place] [address] Care Team Providers Name Role Phone Momo [...] on filedocumented in this encounter Care Teams Dry Cell Tester Relationship Specialty Start Date End Date Momo Forbes PCP - General Family Practice 01/02/14 [facility] [address] [place] [address] documented as of this encounter
--- OUTSIDE RECORDS SUMMARY | 2022-07-05 14:41 | XMS_ITS | Encounter Summary ---
:1950 Author Organization [place] Address [facility] [address] Care Team Providers Name Role Phone Momo Forbes Primary Care Provider Encounter Details Date Type Department Care Team Description [facility]2020 [facility] BOGDAN Nam [address] [place], [place] [phone] Social History Tobacco Use [...] Barbie Ugalde RN - 10/23/2020 4:27 PM SUPERVISOR URANIUM PROCESSING Returned call and left second voicemail message. Patient mentioned in previous phone call he was interested in donating his body upon passing to [facility] for science. Please sent to following website for more information: [email or web address] RVISOR URANIUM PROCESSING Telephone Encounter - Gladis Sosa RN - 10/23/2020 3:21 PM CST Patient Call: Voicemail Date/Time: 10/23/20 139pm Reason for call: Patient left a message requesting a call back [employer] [employer]ANIUM PROCESS[employer] documented in this encounter Plan of Treatment Not on filedocumented as of this encounter Visit Diagnoses Not on filedocumented in this encounter Care Teams Cadd Drafter Relationship Specialty Start Date End Date Momo Forbes PCP - General Family Practice 01/02/14 [facility] [address] [place] [address] documented as of this encounter
--- OUTSIDE RECORDS SUMMARY | 2022-07-05 14:41 | XMS_ITS | Encounter Summary ---
:1950 Author Organization [place] Address [address] [place] [address] Care Team Providers Name Role Phone Forbes, Momo He Primary Care Provider Reason for Visit Reason Onset Date Comments Transplant Lab 05/28/2020 Encounter Details Date Type Department Care Team Description 05/28/[address] [facility] Barbie Ugalde nsplant Lab Transplant Clinic BOGDAN Nam [address] [place] [phone] Social History Tobacco Use Types [...] mg/dL on 05/26/20 at 1025 collected at [facility] [phone] (Phone) CBC appears as expected Missing BMP [...] on filedocumented in this encounter Care Teams Classroom Teacher Relationship Specialty Start Date End Date Momo Forbes PCP - General Family Practice 01/02/14 [facility] [address] [place] [address] documented as of this encounter
--- OUTSIDE RECORDS SUMMARY | 2022-07-05 14:41 | XMS_ITS | Encounter Summary ---
:1950 Author Organization [place] Address [address] [place] [address]. [place] [address] Care Team Providers Name Role Phone Momo Forbes Primary Care Provider Encounter Details Date Type Department Care Team Description 09/25/2019 Medical Correspondence [facility] Scan, PATIENT BLOOD Health Info Mgmt Non-Provider GLUCOSE SIVAKUMAR LEMUS Srvcs [address] [place] [address] Social History Tobacco Use Types [...] filedocumented in this encounter Care Teams Wildlife Biology Internship Relationship Specialty Start Date End Date Momo Forbes PCP - General Family Practice 01/02/14 [facility] [address] [place] [address] documented as of this encounter
--- OUTSIDE RECORDS SUMMARY | 2022-07-05 14:41 | XMS_ITS | Encounter Summary ---
:1950 Author Organization [place] Address [address] [place] [address] Care Team Providers Name Role Phone Momo Forbes Primary Care Provider Reason for Visit Reason Onset Date Comments Transplant 10/23/2020 Encounter Details Date Type Department Care Team Description 10/23/2020 Telephone [facility] Barbie Ugalde nsplant Transplant Clinic BOGDAN Nam [address] [place] [phone] Social History Tobacco Use Types [...] Barbie Ugalde RN - 10/23/2020 1:10 PM ROUTEMAN Latrell reports his labs were done yesterday morning at [facility]. Last night ended upat ER at [facility]. Hospital printed out copy of labs and he is worried about creatinine. Latrell states he had R foot infection that needed to be cleaned out; Had surgery last day of August onfoot at [place]. Was hospitalized 10 days before going to [facility] for recovery. Last night his blood sugar was dropping low into 70s and [facility] staff thought his BP was jumping around [...] department to release records or go thru [facility] to have orders faxed. Call then [...] and repeating post-transplant labs in 1-2 weeks. EMAN Telephone Encounter - Tasia Mack - 10/23/2020 10:03 AM CST Patient Call: Transplant Lab/Orders Route to SPORTS PHYSICIAN Post Transplant Days: 2455 When patient is less than 60 days post-transplant, route high priority Reason for Call: Discuss lab results; which results? creatine level Callback needed? Yes Return Call Needed Same as documented in contacts section When to return call?: Greater than one day: Route standard priority EMAN documented in this encounter Plan of Treatment Not on filedocumented as of this encounter Visit Diagnoses Not on filedocumented in this encounter Care Teams Front Office Agent Relationship Specialty Start Date End Date Momo Forbes PCP - General Family Practice 01/02/14 [facility] [address] [place] [address] documented as of this encounter
--- OUTSIDE RECORDS SUMMARY | 2022-07-05 14:41 | XMS_ITS | Encounter Summary ---
:1950 Author Organization [place] Address [address] [facility] [place] [address] Care Team Providers Name Role Phone Momo Forbes Primary Care Provider Reason for Visit Reason Onset Date Comments Transplant Lab 01/29/2020 overdue labs Encounter Details Date Type Department Care Team Description 01/29/[address] [facility] Barbie Ugalde Tra nsplant Lab Transplant Clinic BOGDAN Nam (overdue labs) [address] [place] [phone] Social History Tobacco Use Types Packs/Day [...] a kit for blood work sent to [facility] as requested. Explained kits are no longer being used for drug levels but new orders could be sent to lab if needed. [facility] [phone] (Phone) [facility] has annual order on file sent September 2019 and can fax to their new [facility] location that opened 2 weeks ago. Patient seen provider in [facility] who meryl Hemoglobin A1C and BMP [...] on filedocumented in this encounter Care Teams Storekeeper Engineering Relationship Specialty Start Date End Date Momo Forbes PCP - General Family Practice 01/02/14 [facility] [address] [place] [address] documented as of this encounter
--- OUTSIDE RECORDS SUMMARY | 2022-07-05 14:41 | XMS_ITS | Encounter Summary ---
:1950 Author Organization [place] Address [facility] [place] [address] Care Team Providers Name Role Phone Momo Forbes Primary Care Provider Reason for Visit Reason Onset Date Comments Refill Request 01/17/2019 Encounter Details Date Type Department Care Team Description 01/17/2019 Refill [facility] Joseph Quintana MD Refill Request Transplant Clinic [address] [place] [address] [address] [place], [place] [phone] [place], [place] [phone] (Wo rk) Social History Tobacco Use Types [...] transplant documented in this encounter Care Teams Solar Photovoltaic Systems Engineer Relationship Specialty Start Date End Date Momo Forbes PCP - General Family Practice 01/02/14 [facility] [address] [place] [address] documented as of this encounter
--- OUTSIDE RECORDS SUMMARY | 2022-07-05 14:41 | XMS_ITS | Encounter Summary ---
:1950 Author Organization [place] Address [address] [place] [address] Care Team Providers Name Role Phone Forbes, Ton Primary Care Provider Reason for Visit Reason Comments Clinic Care Coordination - Follow-up Encounter Details Date Type Department Care Team Description 10/25/2019 Care Coordination [facility] Sejal Rodriguez Nephrology Clinic BOGDAN Llanos Coordination - [place] [phone] Follow-up 9 [facility] (Work) [place] [address] Social History Tobacco Use Types [...] back (follow up BP). Romi Rodriguez RN RAL STERILE TECHNICIAN Romi Rodriguez RN - 10/25/2019 10:15 AM [...] further questions or concerns. Romi Rodriguez, RN RAL STERILE TECHNICIAN documented in this encounter Plan of Treatment Not on filedocumented as of this encounter Visit Diagnoses Not on filedocumented in this encounter Care Teams Floor Worker Relationship Specialty Start Date End Date Momo Forbes PCP - General Family Practice 01/02/14 [facility] [address] [place] [address] documented as of this encounter
--- OUTSIDE RECORDS SUMMARY | 2022-07-05 14:41 | XMS_ITS | Encounter Summary ---
:1950 Author Organization [place] Address [address] [place] [address]. [place] [address] Care Team Providers Name Role Phone Momo Forbes Primary Care Provider Encounter Details Date Type Department Care Team Description 09/26/2019 [facility] [place] Scan, BLOOD GLUCOSE LOG Health Info Mgmt Non-Provider Srvcs [address] [place] [phone] Social History Tobacco Use Types Packs/Day [...] filedocumented in this encounter Care Teams Clinical Engineering Director Relationship Specialty Start Date End Date Momo Forbes PCP - General Family Practice 01/02/14 [facility] [address] [place] [address] documented as of this encounter
--- OUTSIDE RECORDS SUMMARY | 2022-07-05 14:41 | XMS_ITS | Encounter Summary ---
:1950 Author Organization [place] Address [address] [place] [address] Care Team Providers Name Role Phone Momo Forbes Primary Care Provider Reason for Visit Reason Onset Date Comments Transplant Immunosuppression Management 07/03/2020 Late to refill Encounter Details Date Type Department Care Team Description 07/03/2020 Telephone [facility] Tram, Transplant Transplant Clinic Barbie Nam, Immunosuppression [address] [place] [address] RN Management (Late to [place], [place] refill) [phone] Social History Tobacco Use [...] Barbie Ugalde RN - 07/03/2020 10:20 AM TURBO ELECTRIC OPERATOR Images from the original note were not included. Late to fill IS meds Received: Yesterday Message Contents Meghan Mccormack, [facility] Barbie Ugalde RN ?? Hi [...] copy to patient so he is aware. 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
--- OUTSIDE RECORDS SUMMARY | 2022-07-05 14:41 | XMS_ITS | Encounter Summary ---
:1950 Author Organization [place] Address [facility] [place] [address] Care Team Providers Name Role Phone Forbes, Ton Primary Care Provider Reason for Visit Reason Onset Date Comments Transplant Immunosuppression Management 08/11/2020 Encounter Details Date Type Department Care Team Description [facility] nsplant Transplant Clinic BOGDAN Nam Immunosuppression [address] [place] [address] [place] [address] Social History Tobacco Use Types [...] Barbie Ugalde RN - 08/11/2020 4:16 PM DIRECTOR OF OCCUPATIONAL HEALTH ISSUE: Tacrolimus IR level 11.7 on 08/08/20, [...] BID and repeat labs in 1 week. Baribe Ugalde RN, BSN Solid Organ Transplant, Post Kidney and Pancreas Transplant Screen Tender [phone] OUTCOME: Spoke with patient, they confirm accurate trough level and current dose 2 mg BID. Patient confirmed dose change to 1.5 mg BID and to repeat labs in 1 weeks. Orders sent to preferred pharmacy for dose change and lab for repeat labs. Patient voiced understanding of plan. 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
--- OUTSIDE RECORDS SUMMARY | 2022-07-05 14:41 | XMS_ITS | Encounter Summary ---
:1950 Author Organization [place] Address [facility] [place] [address] Care Team Providers Name Role Phone Momo Forbes Primary Care Provider Reason for Visit Reason Onset Date Comments Critical Values 07/08/2020 Encounter Details Date Type Department Care Team Description 07/08/[address] [facility] Cristy Chen LPN C ritical Values Transplant Clinic [address] [place] [phone] Social History Tobacco Use Types Packs/Day Years Used Date Smoking Tobacco: Former Cigars Quit : 08/22/2006 Smokeless Tobacco: Never Alcohol Use Standard Drinks/Week Comments Yes 0 (1 standard drink = 0.6 oz pure alcoho l) occasional drink. 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 Per Dr. Huerta from visit in 10/09/19: # Diabetes: Poorly controlled (HbA1c >9%) Last HbA1c: 13.7%. - Management as per primary care. - Recommended all blood sugars stay below 200, with fasting between 90 and 130. ?? Latrell states that he lost his blood sugar meter but he can pick one up at [facility]. He asked how often he should be [...] level. Latrell states he returns to 08/08. CT SUPPORT PROFESSIONAL CAREGIVER Telephone Encounter - Cristy Chen LPN - 07/08/2020 3:39 PM CST DATE: 07/08/2020 TIME OF RECEIPT FROM LAB: 3:30 PM LAB TEST: Glucose LAB VALUE: 407 RESULTS GIVEN WITH READ-BACK TO (PROVIDER): Barbie Ugalde RN TIME LAB VALUE REPORTED TO PROVIDER: 3:[address] SUPPORT PROFESSIONAL CAREGIVER documented in this encounter Plan of Treatment Not on filedocumented as of this encounter Visit Diagnoses Not on filedocumented in this encounter Care Teams Trolley Car Operator Relationship Specialty Start Date End Date Momo Forbes PCP - General Family Practice 01/02/14 [facility] [address] [place] [address] documented as of this encounter
--- OUTSIDE RECORDS SUMMARY | 2022-07-05 14:41 | XMS_ITS | Encounter Summary ---
:1950 Author Organization [place] Address [facility] [place] [address] Care Team Providers Name Role Phone Momo [...] filedocumented in this encounter Care Teams Scout Sniper Relationship Specialty Start Date End Date Momo Forbes PCP - General Family Practice 01/02/14 [facility] [address] [place] [address] documented as of this encounter
--- OUTSIDE RECORDS SUMMARY | 2022-07-05 14:41 | XMS_ITS | Encounter Summary ---
:1950 Author Organization [place] Address [address] [facility] [place] [address] Care Team Providers Name Role Phone Momo Forbes Primary Care Provider Joseph Quintana MD Unavailable Encounter Details Date Type Department Care Team Description 05/26/2020 External Order [facility] Outside, Provider Results Transplant Clinic [address] [place] [address] Social History Tobacco Use Types [...] on filedocumented in this encounter Care Teams Building Services Coordinator Relationship Specialty Start Date End Date Momo Forbes PCP - General Family Practice 01/02/14 [facility] [address] [place] [address] Joseph Quintana, Assigned Nephrology 03/29/21 MD Provider 7 [facility] 353 [facility] [address] [place], [place] [address] documented as of this encounter
--- OUTSIDE RECORDS SUMMARY | 2022-07-05 14:41 | XMS_ITS | Encounter Summary ---
:1950 Author Organization [place] Address [address] [place] [address] Care Team Providers Name Role Phone Momo Forbes Primary Care Provider Reason for Visit Reason Onset Date Comments Refill Request 03/18/2020 Mycophenolate and Pr ograf 1mg Encounter Details Date Type Department Care Team Description 03/18/2020 Refill M [facility] Mariano, Joseph Refill R equest Nephrology Clinic MD Herminio (Mycophenolate and [place] [address] [place] [address] SE Prograf 1mg) 909 [facility] RANJAN 353 [facility] [address] [place], [place] [address] [phone] Social History Tobacco Use Types Packs/Day Years [...] transplant documented in this encounter Care Teams Plant Taxonomist Relationship Specialty Start Date End Date Momo Forbes PCP - General Family Practice 01/02/14 [facility] [address] [place] [address] documented as of this encounter
--- OUTSIDE RECORDS SUMMARY | 2022-07-05 14:41 | XMS_ITS | Encounter Summary ---
:1950 Author Organization [place] Address [address] [place] [address]. [place] [address] Care Team Providers Name Role Phone Momo Forbes Primary Care Provider Reason for Visit Reason Onset Date Comments Refill Request 02/28/2019 Encounter Details Date Type Department Care Team Description 02/28/2019 Refill [facility] Shiva Presley MD Refill Request Nephrology Clinic [facility] [address] [place] [phone] Social History Tobacco Use Types Packs/Day Years [...] disease documented in this encounter Care Teams Database Manager Relationship Specialty Start Date End Date Momo Forbes PCP - General Family Practice 01/02/14 [facility] [address] [place] [address] documented as of this encounter
--- OUTSIDE RECORDS SUMMARY | 2022-07-05 14:41 | XMS_ITS | Encounter Summary ---
:1950 Author Organization [place] Address [address] [place] [address] Care Team Providers Name Role Phone Momo Forbes Primary Care Provider Encounter Details Date Type Department Care Team Description 05/16/2019 Orders Only [facility] Loy Morales, Aft ercare following organ transplant; [facility] Kidney replaced by transplant; Laboratory [address] [facility] Encounter for long-term curr ent use of medication [address] [place] [address] [phone] (Wo rk) Social History Tobacco Use Types [...] (ABNORMAL) Tacrolimus level (05/16/2019 3:43 PM CDT) [facility] Method Time Signature Tacrolimus Last 05/1605/18/2019 [facility] 1230AM 11:28 AM CDT [facility] Tacrolimus 4.6 (L) 5.0 - 05/18/2019 [facility] 15.0 ug/L 4:11 PM CDT [facility] Comment: Tacrolimus Reference Range Kidney [...] performa nce characteristics determined [facility] the [facility] [...] Phon e Number [facility] [address] [place], [place] [phone] [place] [address] documented in this encounter Visit Diagnoses Diagnosis Aftercare following organ transplant Kidney replaced by transplant Encounter for long-term current use of m edication documented in this encounter Care Teams Sheet Tester Relationship Specialty Start Date End Date Momo Forbes PCP - General Family Practice 01/02/14 [facility] [address] [place] [address] documented as of this encounter
--- OUTSIDE RECORDS SUMMARY | 2022-07-05 14:41 | XMS_ITS | Encounter Summary ---
:1950 Author Organization [place] Address [address] [place] [address] Care Team Providers Name Role Phone Momo Forbes Primary Care Provider Reason for Visit Reason Comments RECHECK Post kid tx f/u Encounter Details Date Type Department Care Team Description 10/09/[address] [facility] Shiva Presley MD [facility] [address] [facility] [address] [place] [address] Kidney transplanted (Primary Dx); Nephrology Clinic , Kidney/Pancreas Recipient Need for influenza vaccination; [place] HTN, kidney transplant relat ed; [address] Immunosupp ression (H); SE Skin cancer screening; [place], [place]it[place] [phone] Social History [...] Comments Blood Pressure 169/76 10/09/2019 2:35 PM PLATEN GRINDER Pulse 67 10/09/2019 2:35 PM PLATEN GRINDER Temperature - - Respiratory Rate - - Oxygen Saturation 95% 10/09/2019 2:35 PM PLATEN GRINDER Inhaled Oxygen Concentration - - Weight 132.5 kg (292 lb 1.6 oz) 10/09/2019 2:35 PM PLATEN GRINDER Height - - Body Mass Index 39.62 10/10/2017 2:25 PM PLATEN GRINDER documented in this encounter Progress Notes Shiva [...] being entered into the official medical record. EN GRINDER documented in this encounter Nursing Notes Josseline Recinos RN - 10/09/2019 2:45 PM CST Diego Guthrie was seen today in clinic by this blurb writer. Medications, lab orders, lab frequency,and necessary follow up discussed with patient. Patient was provided with a copy of the current lab letter. Patient voiced understanding and agreement of education and plan. Jsoseline Recinos RN EN GRINDER Jeanette Finley CMA - 10/09/2019 2:45 PM CST Chief Complaint Patient presents with ??? RECHECK Post kid tx f/u Blood pressure (!) 169/76, pulse 67, weight 132.5 kg (292 lb 1.6 oz), SpO2 95 %. Jeanette Finley CMA EN GRINDER documented in this encounter Plan of [...] deficiency documented in this encounter Care Teams Door Repairer Bus Relationship Specialty Start Date End Date Momo Forbes PCP - General Family Practice 01/02/14 [facility] [address] [place] [address] documented as of this encounter
--- OUTSIDE RECORDS SUMMARY | 2022-07-05 14:41 | XMS_ITS | Encounter Summary ---
:1950 Author Organization [place] Address [address] [place] [address] Care Team Providers Name Role Phone Momo Forbes Primary Care Provider Reason for Visit Reason Onset Date Comments Transplant Lab 05/16/2019 Encounter Details Date Type Department Care Team Description 05/16/2019 Telephone [facility] Sudhir Fields Trans plant Lab Transplant Clinic Amanda Fletcher RN [address] [place] [address] [phone] Social History Tobacco Use Types Packs/Day [...] CDT Provider Call: Transplant Lab/Orders Route to DRILL OPERATOR AUTOMATIC Post Transplant Days: 1928 When patient is less than 60 days post-transplant, route high priority Reason for Call: updated lab order faxed Liver patients reporting abnormal lab results: Route to RN and Page Document lab facility information when provider is calling about annual lab orders. Delete facility wildcards when not needed. Facility Name: [facility] Facility Location: [place], [place] Outside Facility Callback needed? If needed documented in this encounter Plan of Treatment Not on filedocumented as of this encounter Visit Diagnoses Diagnosis Kidney replaced by transplant - Primary Aftercare following organ transplant Encounter for long-term current use of m edication documented in this encounter Care Teams Client Technologies Specialist Relationship Specialty Start Date End Date Momo Forbes PCP - General Family Practice 01/02/14 [facility] [address] [place] [address] documented as of this encounter
--- OUTSIDE RECORDS SUMMARY | 2022-07-05 14:41 | XMS_ITS | Encounter Summary ---
:1950 Author Organization [place] Address [address] [place] [address] Care Team Providers Name Role Phone Momo Forbes Primary Care Provider Reason for Visit Reason Onset Date Comments Kidney Transplant 05/20/2019 Encounter Details Date Type Department Care Team Description 05/20/2019 Telephone [facility] Estefania Nguyen Transplant Transplant Clinic Amanda Fletcher RN [address] [place] [phone] Social History Tobacco Use Types Packs/Day [...] not charted as 12 hour trough. ?? Plan/PHYSIOLOGIST task: ?? Please confirm timing of lab draw. If this was not a 12 hour level, please repeat labs in May and ensure 12 hour trough level with lab draw. Enter lab orders if needed Telephone Encounter - Amanda Nguyen RN - 05/20/2019 5:38 PM CDT Issue: Tac 4.6 - however this is not charted as 12 hour trough. Plan/PHYSIOLOGIST task: Please confirm timing of lab draw. If this was not a 12 hour level, please repeat labs in May and ensure 12 hour trough level with lab draw. Enter lab orders if needed. documented in this encounter Plan of Treatment Not on filedocumented as of this encounter Visit Diagnoses Not on filedocumented in this encounter Care Teams Garden Worker Relationship Specialty Start Date End Date Momo Forbes PCP - General Family Practice 01/02/14 [facility] [address] [place] [address] documented as of this encounter
--- OUTSIDE RECORDS SUMMARY | 2022-07-05 14:41 | XMS_ITS | Encounter Summary ---
:1950 Author Organization [place] Address [facility], [id number] [facility] [place] [address] Care Team Providers Name Role Phone Momo Forbes Primary Care Provider Encounter Details Date Type Department Care Team Description 10/09/2019 Orders Only [facility] Transplant Mati Recinos RN Clinic [address] [place], [place] [phone] Social History Tobacco Use Types Packs/Day [...] 3:48 PM CST Orders updated. Faxed to [facility] lab: [facility] T [phone] F [phone] METRY TEACHER documented in this encounter Plan of Treatment Not on filedocumented as of this encounter Visit Diagnoses Not on filedocumented in this encounter Care Teams Metal Fabricator Relationship Specialty Start Date End Date Momo Forbes PCP - General Family Practice 01/02/14 [facility] [address] [place] [address] documented as of this encounter
--- OUTSIDE RECORDS SUMMARY | 2022-07-05 14:41 | XMS_ITS | Encounter Summary ---
:1950 Author Organization [place] Address [facility] [place] [address] Care Team Providers Name Role Phone Momo Forbes Primary Care Provider Reason for Visit Reason Onset Date Comments Refill Request 05/07/2020 Mycophenplate and Pr ograf Encounter Details Date Type Department Care Team Description 05/07/2020 Refill [facility] Joseph Quintana Refill R equest Nephrology Clinic MD Herminio (Mycophenplate and [address] Prograf) [address] [place] [phone] Social History Tobacco Use Types Packs/Day Years [...] transplant documented in this encounter Care Teams Lpn Medical Assistant Relationship Specialty Start Date End Date Momo Forbes PCP - General Family Practice 01/02/14 [facility] [address] [place] [address] documented as of this encounter
--- OUTSIDE RECORDS SUMMARY | 2022-07-05 14:41 | XMS_ITS | Encounter Summary ---
:1950 Author Organization [place] Address [facility] [place] [address] Care Team Providers Name Role Phone Momo Forbes Primary Care Provider Reason for Visit Reason Onset Date Comments Refill Request 02/04/2020 prograf, mycophenola te Encounter Details Date Type Department Care Team Description 02/04/2020 Refill [facility] Spong, Joseph Refill R equest Transplant Clinic MD Herminio (prograf, [address] [facility] SE [address] [facility] mycophenolate) [facility] [address] [facility] [address] [phone] [place] [address] (Wo rk) Social History Tobacco [...] transplant documented in this encounter Care Teams Biopharmaceutical Rep Relationship Specialty Start Date End Date Momo Forbes PCP - General Family Practice 01/02/14 [facility] [address] [place] [address] documented as of this encounter
--- OUTSIDE RECORDS SUMMARY | 2022-07-05 14:41 | XMS_ITS | Encounter Summary ---
:1950 Author Organization [place] Address [address] [place] [address] Care Team Providers Name Role Phone Momo Forbes Primary Care Provider Joseph Quintana MD Unavailable Encounter Details Date Type Department Care Team Description 08/08/2020 External Order [facility] Outside, Provider Results Transplant Clinic [address] [place] [phone] Social History Tobacco Use [...] 08/08/2020 11:43 Results f or this AM JAVA DESIGNER procedure are i n the results section. TACROLIMUS BY TANDEM Routine 08/08/2020 11:34 Res ults for this MASS SPECTROMETRY AM JAVA DESIGNER procedure are in the results section. LIPID PROFILE Routine 08/08/2020 11:34 Results fo r this AM JAVA DESIGNER procedure are i n the results section. ALT Routine 08/08/2020 11:34 Results for this AM JAVA DESIGNER procedure are i n the results section. BASIC METABOLIC PANEL Routine 08/08/2020 11:34 Re sults for this AM JAVA DESIGNER procedure are i n the results section. documented in this encounter Results (ABNORMAL) Hemoglobin A1c (08/08/2020 11:43 AM JAVA DESIGNER) Analysis Performed At [facility] Time Signature Hemoglobin A1C 10.2 (H) <=6.9 % LABDE SCAN (External) Specimen (Source) Anatomical Collection Method Collection Time Re ceived Time Location / / Volume Laterality Blood specimen 08/08/2020 11:43 (specimen) AM JAVA DESIGNER Narrative [facility] - 08/11/2020 1:28 PM JAVA DESIGNER Verified by Praful Huff on 2019. Patient Reported LAB - BLOOD ORDERABLES Performing Organization Address City/State/ZIP Code Phon e Number [facility] LABDE SCAN Tacrolimus level (08/08/2020 11:34 AM JAVA DESIGNER) P athologist Signature Tacrolimus(FK-5 11.7 See scan LABDE SCAN 06) (External) ng/mL Specimen (Source) Anatomical Collection Method Collection Time Re ceived Time Location / / Volume Laterality Blood specimen 08/08/2020 11:34 (specimen) AM JAVA DESIGNER Narrative [facility] - 08/11/2020 1:28 PM JAVA DESIGNER Verified by Praful Huff on 2019. Patient Reported LAB - BLOOD ORDERABLES Performing Organization Address City/State/ZIP Code Phon e Number [facility] LABDE SCAN (ABNORMAL) Lipid Profile (08/08/2020 11:34 AM JAVA DESIGNER) Patholo gist Method Time Signature Cholesterol 79 (L) 90 - 200 LABDE SCAN (External) MG/DL Triglycerides 86 40 - 197 LABDE SCAN (External) MG/DL LDL-Cholesterol 29 <100 mg/dL LABDE SCAN (External) HDL Cholesterol 33 (L) >=40 mg/dL LABDE SCAN (External) Specimen (Source) Anatomical Collection Method Collection Time Re ceived Time Location / / Volume Laterality Blood specimen 08/08/2020 11:34 (specimen) AM JAVA DESIGNER Narrative [facility] - 08/11/2020 1:28 PM JAVA DESIGNER Verified by Praful Huff on 2019. Patient Reported LAB - BLOOD ORDERABLES Performing Organization Address City/State/ZIP Code Phon e Number [facility] LABDE SCAN ALT (08/08/2020 11:34 AM JAVA DESIGNER) P athologist Signature ALT (External) 8 4 - 50 U/L LABDE SCAN Specimen (Source) Anatomical Collection Method Collection Time Re ceived Time Location / / Volume Laterality Blood specimen 08/08/2020 11:34 (specimen) AM JAVA DESIGNER Narrative [facility] - 08/11/2020 1:28 PM JAVA DESIGNER Verified by Praful Huff on 2019. Patient Reported LAB - BLOOD ORDERABLES Performing Organization Address City/State/ZIP Code Phon e Number [facility] LABDE SCAN (ABNORMAL) Basic metabolic panel (08/08/2020 11:34 AM JAVA DESIGNER) P athologist Signature Glucose 119 (H) 60 [...] Laterality Blood specimen 08/08/2020 11:34 (specimen) AM JAVA DESIGNER Narrative [facility] - 08/11/2020 1:28 PM JAVA DESIGNER Verified by Praful Huff on 2019. Patient Reported LAB - BLOOD ORDERABLES Performing Organization Address City/State/ZIP Code Phon e Number [facility] LABDE SCAN documented in this encounter Visit Diagnoses Not on filedocumented in this encounter Care Teams Central Supply Aide Relationship Specialty Start Date End Date Momo Forbes PCP - General Family Practice 01/02/14 [facility] [address] [place] [address] Joseph Quintana, Assigned Nephrology 03/29/21 MD Provider 7 [facility] [address] [facility] [address] [place], [place] [address] documented as of this encounter
--- OUTSIDE RECORDS SUMMARY | 2022-07-05 14:41 | XMS_ITS | Encounter Summary ---
:1950 Author Organization [place] Address [facility] [place] [address] Care Team Providers Name Role Phone Momo [...] in this encounter Care Teams Vice President Consulting Services Relationship Specialty Start Date End Date Momo Forbes PCP - General Family Practice 01/02/14 [facility] [address] [place] [address] documented as of this encounter
--- OUTSIDE RECORDS SUMMARY | 2022-07-05 14:41 | XMS_ITS | Encounter Summary ---
:1950 Author Organization [place] Address [address] [place] [address] Care Team Providers Name Role Phone ForbesMomo Primary Care Provider Reason for Visit Reason Onset Date Comments Transplant 07/11/2020 Encounter Details Date Type Department Care Team Description 07/11/2020 Telephone [facility] Barbie Ugalde Transplant Clinic BOGDAN Nam [address] [place], [place] [phone] Social History Tobacco Use Types Packs/Day Years Used Date Smoking Tobacco: Former Cigars Quit : 08/22/2006 Smokeless Tobacco: Never Alcohol Use Standard Drinks/Week Comments Yes 0 (1 standard drink = 0.6 oz pure alcoho l) occasional drink. Sex Assigned at Date Recorded Not on file documented as of this encounter Miscellaneous Notes Telephone Encounter - Barbie Ugalde RN - 07/11/2020 2:11 PM INSPECTOR TESTER SORTER ISSUE: Potassium 5.2 on 07/08/20. PLAN: Assess for high dietary intake of potassium. Encouraged Diego to reduce the amount of bananas and potatoes he admitted to eating high amounts of. OUTCOME: Please have pt repeat BMP in 1 week. Orders sent ECTOR TESTER SORTER Telephone Encounter - Barbie Ugalde RN - 07/11/2020 1:41 PM INSPECTOR TESTER SORTER ISSUE: Tacrolimus IR level 2.2 on 07/08/20 [...] for repeatlabs. Patient voiced understanding of plan. 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
--- OUTSIDE RECORDS SUMMARY | 2022-07-05 14:41 | XMS_ITS | Encounter Summary ---
:1950 Author Organization [place] Address [address] [facility] [place] [address] Care Team Providers Name Role Phone Momo Forbes Primary Care Provider Joseph Quintana MD Unavailable Encounter Details Date Type Department Care Team Description 05/26/2020 External Order [facility] Outside, Provider Results Transplant Clinic [address] [place] [phone] Social History Tobacco Use Types [...] with platelets differential (05/26/2020 10:25 AM CDT) [facility] gist Method Time Signature WBC Count [...] on filedocumented in this encounter Care Teams Programs Assistant Relationship Specialty Start Date End Date Momo Forbes PCP - General Family Practice 01/02/14 [facility] [address] [place] [address] Joseph Quintana, Assigned Nephrology 03/29/21 MD Provider [address] [place] [address] [address] [facility] [address] [place], [place] [address] documented as of this encounter
--- OUTSIDE RECORDS SUMMARY | 2022-07-05 14:41 | XMS_ITS | Encounter Summary ---
:1950 Author Organization [place] Address [address] [place] [address] Care Team Providers Name Role Phone Forbes, Momo He Primary Care Provider Reason for Visit Reason Onset Date Comments Transplant Immunosuppression Management 09/08/2020 Encounter Details Date Type Department Care Team Description 09/08/2020 Telephone [facility] Tram, Transplant Transplant Clinic Barbie Nam, Rc [address] [place] [address] [place] [phone] Social History Tobacco Use Types Packs/Day Years Used Date Smoking Tobacco: Former Cigars Quit : 08/22/2006 Smokeless Tobacco: Never Alcohol Use Standard Drinks/Week Comments Yes 0 (1 standard drink = 0.6 oz pure alcoho l) occasional drink. Sex Assigned at Date Recorded Not on file documented as of this encounter Miscellaneous Notes Telephone Encounter - Brabie Ugalde RN - 09/09/2020 3:06 PM HAND BOX FOLDER Second call placed to patient and voicemail message left. BOX FOLDER Telephone Encounter - Barbie Ugalde RN - 09/08/2020 10:31 AM HAND BOX FOLDER Images from the original note were not included. Message Received: 3 days ago Message Contents Beny Staton, [facility] Barbie Ugalde, BOGDAN ?? Latrell has not filled immunos since 07/21. ??His tacro dose changed and he has not filled the 0.5mg in over a year. ??He has not returned our calls. ?? Beny Staton [facility] Specialty Pharmacist [phone] OUTCOME: Tacrolimus dose was decreased from 2mg [...] he is currently taking and need labs. BOX FOLDER documented in this encounter Plan of Treatment Not on filedocumented as of this encounter Visit Diagnoses Not on filedocumented in this encounter Care Teams Ultrasound Coordinator Relationship Specialty Start Date End Date Momo Forbes PCP - General Family Practice 01/02/[address] [address] documented as of this encounter
--- OUTSIDE RECORDS SUMMARY | 2022-07-05 14:41 | XMS_ITS | Encounter Summary ---
:1950 Author Organization [place] Address [address] [facility] [place] [address] Care Team Providers Name Role Phone ForbesMomo santiago A Primary Care Provider Reason for Visit Reason Onset Date Comments Kidney Transplant 07/12/2019 Encounter Details Date Type Department Care Team Description 07/12/[address] [facility] Estefania Nguyen Transplant Transplant Clinic Amanda Fletcher RN [address] [place] [phone] Social History Tobacco Use Types Packs/Day [...] left with instruction listed below. Order placed ESPONDENCE ANALYST Telephone Encounter - Amanda Nguyen RN - 07/12/2019 12:23 PM CORRESPONDENCE ANALYST Clinic appt 07/17 at 4:45 Plan: Called patient to remind him of appt date/time. Asked that he complete labs prior to appt. SREEKANTH task: Please send one time lab order to complete all tx labs within the next week. ESPONDENCE ANALYST documented in this encounter Plan of Treatment Not on filedocumented as of this encounter Visit Diagnoses Not on filedocumented in this encounter Care Teams Market Garden Worker Relationship Specialty Start Date End Date Momo Forbes PCP - General Family Practice 01/02/14 [facility] [address] [place] [address] documented as of this encounter
--- OUTSIDE RECORDS SUMMARY | 2022-07-05 14:41 | XMS_ITS | Encounter Summary ---
:1950 Author Organization [place] Address [address] [facility]. [address] Care Team Providers Name Role Phone Momo Forbes Primary Care Provider Joseph Quintana MD Unavailable Encounter Details Date Type Department Care Team Description 07/08/2020 External Order [facility] Outside, Provider Results Transplant Clinic 9 [place] [address] Social History Tobacco Use Types [...] 9:23 AM R esults for this DIFFERENTIAL COOLING SYSTEM OPERATOR procedure are i n the results section. TACROLIMUS BY TANDEM Routine 07/08/2020 9:23 AM R esults for this MASS SPECTROMETRY COOLING SYSTEM OPERATOR procedure are in the results section. PROTEIN RANDOM URINE Routine 07/08/2020 9:23 AM R esults for this COOLING SYSTEM OPERATOR procedure are i n the results section. HEMOGLOBIN A1C Routine 07/08/2020 9:23 AM Results for this COOLING SYSTEM OPERATOR procedure are i n the results section. HEMOGLOBIN A1C Routine 07/08/2020 9:23 AM Results for this COOLING SYSTEM OPERATOR procedure are i n the results section. BASIC METABOLIC PANEL Routine 07/08/2020 9:23 AM Results for this COOLING SYSTEM OPERATOR procedure are i n the results section. documented in this encounter Results (ABNORMAL) Protein random urine with Creat Ratio (07/08/2020 9:23 AM COOLING SYSTEM OPERATOR) Analysis Performed At [facility] Time Signature Protein Random 73 mg/dL LABDE SCAN Urine (External) Creatinine 65 mg/dL LABDE SCAN Urine mg/dL (External) Protein Total 1.12 (H) 0 - 0.19 LABDE SCAN Ur per Cr (External) Specimen (Source) Anatomical Collection Method Collection Time Re ceived Time Location / / Volume Laterality Urine specimen 07/08/2020 9:23 AM (specimen) COOLING SYSTEM OPERATOR Narrative [facility] - 07/11/2020 11:13 AM COOLING SYSTEM OPERATOR Verified by Praful Huff on 2019. Patient Reported LAB - URINE ORDERABLES Performing Organization Address City/State/ZIP Code Phon e Number [facility] LABDE SCAN (ABNORMAL) Hemoglobin A1c (07/08/2020 9:23 AM COOLING SYSTEM OPERATOR) Analysis Performed At [facility] Time Signature Hemoglobin A1C 12.3 (H) 0 - 5.6 % LABDE SCAN (External) Specimen (Source) Anatomical Collection Method Collection Time Re ceived Time Location / / Volume Laterality Blood specimen 07/08/2020 9:23 AM (specimen) COOLING SYSTEM OPERATOR Narrative [facility] PFT - 07/11/2020 11:13 AM COOLING SYSTEM OPERATOR Verified by Praful Huff on 2019. Patient Reported LAB - BLOOD ORDERABLES Performing Organization Address City/[facility]/ZIP Code Phon e Number [facility] LABDE SCAN Tacrolimus level (07/08/2020 9:23 AM COOLING SYSTEM OPERATOR) P athologist Signature Tacrolimus(FK- 2.2 See scanned LABDE SCAN 506) report ng/mL (External) Specimen (Source) Anatomical Collection Method Collection Time Re ceived Time Location / / Volume Laterality Blood specimen 07/08/2020 9:23 AM (specimen) COOLING SYSTEM OPERATOR Narrative [facility] PFT - 07/11/2020 11:13 AM COOLING SYSTEM OPERATOR Verified by Praful Huff on 2019. Patient Reported LAB - BLOOD ORDERABLES Performing Organization Address City/State/ZIP Code Phon e Number [facility] LABDE SCAN (ABNORMAL) Hemoglobin A1c (07/08/2020 9:23 AM COOLING SYSTEM OPERATOR) Analysis Performed At [facility] logist Time Signature Hemoglobin A1C 12.3 (H) 0 - 5.6 % LABDE SCAN (External) Specimen (Source) Anatomical Collection Method Collection Time Re ceived Time Location / / Volume Laterality Blood specimen 07/08/2020 9:23 AM (specimen) COOLING SYSTEM OPERATOR Narrative MARLENEE PFT - 07/09/2020 11:03 AM COOLING SYSTEM OPERATOR Verified by Andrade Barajas on 07/09/2020. Patient Reported LAB - BLOOD ORDERABLES Performing Organization Address City/State/ZIP Code Phon e Number [facility] LABDE SCAN (ABNORMAL) Basic metabolic panel (07/08/2020 9:23 AM COOLING SYSTEM OPERATOR) Analysis Performed At [facility] logist Time Signature Calcium 10.1 8.4 [...] Laterality Blood specimen 07/08/2020 9:23 AM (specimen) COOLING SYSTEM OPERATOR Narrative JESSICA PFT - 07/09/2020 11:02 AM COOLING SYSTEM OPERATOR Verified by Andrade Barajas on 07/09/2020. Patient Reported LAB - BLOOD ORDERABLES Performing Organization Address City/State/ZIP Code Phon e Number [facility] LABDE SCAN (ABNORMAL) CBC with platelets differential (07/08/2020 9:23 AM COOLING SYSTEM OPERATOR) [facility] gist Method Time Signature WBC Count 4.32 [...] Laterality Blood specimen 07/08/2020 9:23 AM (specimen) COOLING SYSTEM OPERATOR Narrative JESSICA PFT - 07/09/2020 10:52 AM COOLING SYSTEM OPERATOR Verified by Praful Huff on 2019. Patient Reported LAB - BLOOD ORDERABLES Performing Organization Address City/State/ZIP Code Phon e Number [facility]REEZE PFT LABDE SCAN documented in this encounter Visit Diagnoses Not on filedocumented in this encounter Care Teams Software Quality Engineer Relationship Specialty Start Date End Date Momo Forbes PCP - General Family Practice 01/02/14 [place] [id number] Joseph Quintana, Assigned Nephrology 03/29/21 MD Provider [address] [place] [id number] documented as of this encounter
--- OUTSIDE RECORDS SUMMARY | 2022-07-05 14:41 | XMS_ITS | Encounter Summary ---
:1950 Author Organization [place] Address [address] [place] [address] Care Team Providers Name Role Phone Momo Forbes Primary Care Provider Joseph Quintana MD Unavailable Encounter Details Date Type Department Care Team Description 05/16/2019 External Order [facility] Nurse, Santi Txc Afterca re following organ transplant; Results Transplant Clinic Kidney replaced by transplan t; [address] [place] [address] Encounter for long-term curr [place] [address] Social History Tobacco Use Types [...] procedure are in Kidney replaced by [facility] ts transplant section. Encounter for long-term current use of medication PROTEIN RANDOM URINE Routine 05/16/2019 3:36 PM Aftercare foll owing Results for this CDT organ transplant procedure are in Kidney replaced by [facility] ts transplant section. Encounter for long-term current [...] Estimated >60 >60 LABDE SCAN (if ml/min/1.7 Serbian) 3m2 (External) GFR Estimated 56 (L) >60 [...] edication documented in this encounter Care Teams Freight Team Associate Relationship Specialty Start Date End Date Momo Forbes PCP - General Family Practice 01/02/14 [facility] [address] [place] [address] Joseph Quintana, Assigned Nephrology 03/29/21 MD Provider 7 [facility] 353 [facility] [address] [place] [address] documented as of this encounter
--- OUTSIDE RECORDS SUMMARY | 2022-07-05 14:41 | XMS_ITS | Encounter Summary ---
:1950 Author Organization [place] Address [address] [place] [address] Care Team Providers Name Role Phone Forbes, Ton Primary Care Provider Reason for Visit Reason Comments Clinic Care Coordination - Follow-up Encounter Details Date Type Department Care Team Description 11/16/2019 Care Coordination [facility] Sejal Rodriguez Nephrology Clinic BOGDAN Llanos Coordination - [place] [phone] Follow-up 9 [facility] ([place]) [place] [address] Social History Tobacco Use Types [...] in this encounter Care Teams Sales And Service Specialist Relationship Specialty Start Date End Date Momo Forbes PCP - General Family Practice 01/02/14 [facility] [address] [place] [address] documented as of this encounter
--- OUTSIDE RECORDS SUMMARY | 2022-07-05 14:42 | XMS_ITS | Encounter Summary ---
:1950 Author Organization [place] Address [address] [place] [address] Care Team Providers Name Role Phone ForbesMomo Primary Care Provider Reason for Visit Reason Onset Date Comments Transplant 11/07/2017 Encounter Details Date Type Department Care Team Description 11/07/2017 Telephone [facility] Transplant Nazia Jacobson, Transplant Clinic RN [address] [place], [place] [phone] Social History Tobacco Use [...] range, repeat tac level in 1 week. DIRECTOR OF MEDICAL SERVICES TASK: Call patient with instructions per plan. Enter lab orders if needed. documented in this encounter Plan of Treatment Not on filedocumented as of this encounter Visit Diagnoses Not on filedocumented in this encounter Care Teams Director Public Service Relationship Specialty Start Date End Date Momo Forbes PCP - General Family Practice 01/02/[address] [address] documented as of this encounter
--- OUTSIDE RECORDS SUMMARY | 2022-07-05 14:42 | XMS_ITS | Encounter Summary ---
:1950 Author Organization [place] Address [address] [facility] [place] [address] Care Team Providers Name Role Phone Momo Forbes Primary Care Provider Reason for Visit Reason Onset Date Comments Appointment 10/05/2017 Encounter Details Date Type Department Care Team Description 10/05/[address] [facility] Shiva Presley MD Appointment Nephrology Clinic [facility] [address] [place] [phone] Social History Tobacco Use Types Packs/Day Years [...] concernsahead of appointment. Romi Rodriguez RN L ORGAN PIPE MAKER documented in this encounter Plan of Treatment Not on filedocumented as of this encounter Visit Diagnoses Not on filedocumented in this encounter Care Teams Tube Coater Relationship Specialty Start Date End Date Momo Forbes PCP - General Family Practice 01/02/14 [facility] [address] [place] [address] documented as of this encounter
--- OUTSIDE RECORDS SUMMARY | 2022-07-05 14:42 | XMS_ITS | Encounter Summary ---
:1950 Author Organization [place] Address [address] [place] [address] Care Team Providers Name Role Phone Momo Forbes Primary Care Provider Joseph Quintana MD Unavailable Encounter Details Date Type Department Care Team Description 09/04/2018 External Order Results [facility] Nurse, [facility] Transplant Clinic [address] [place] [address] Social History Tobacco Use [...] 2:50 PM R esults for this DIFFERENTIAL DESIGNER AND PATTERNMAKER procedure are i n the results section. BASIC METABOLIC PANEL Routine 09/04/2018 2:50 PM Results for this DESIGNER AND PATTERNMAKER procedure are i n the results section. PROTEIN RANDOM URINE Routine 09/04/2018 2:49 PM R esults for this DESIGNER AND PATTERNMAKER procedure are i n the results section. documented in this encounter Results (ABNORMAL) CBC with platelets differential (09/04/2018 2:50 PM DESIGNER AND PATTERNMAKER) [facility] Method Time Signature WBC Count 3.8 [...] Laterality Blood specimen 09/04/2018 2:50 PM (specimen) DESIGNER AND PATTERNMAKER Narrative JESSICA PFT - 09/06/2018 9:13 AM DESIGNER AND PATTERNMAKER Verified by Cassie Florian on 09/06/2018. Patient Reported LAB - BLOOD ORDERABLES Performing Organization Address City/State/ZIP Code Phon e Number ZACHERYTYLER PFT LABDE SCAN (ABNORMAL) Basic metabolic panel (09/04/2018 2:50 PM DESIGNER AND PATTERNMAKER) Analysis Performed At [facility] logist Time Signature [...] 49 (L) >60 LABDE SCAN (if ml/min/1.7 Cameroonian) 3m2 (External) GFR Estimated 41 (L) >60 LABDE SCAN (External) ml/min/1.7 3m2 Specimen (Source) Anatomical Collection Method Collection Time Re ceived Time Location / / Volume Laterality Blood specimen 09/04/2018 2:50 PM (specimen) DESIGNER AND PATTERNMAKER Narrative BREEZE PFT - 09/06/2018 9:13 AM DESIGNER AND PATTERNMAKER Verified by Cassie Florian on 09/06/2018. Patient Reported LAB - BLOOD ORDERABLES Performing Organization Address City/State/ZIP Code Phon e Number [facility]REE[facility] PFT LABDE SCAN (ABNORMAL) Protein random urine with Creat Ratio (09/04/2018 2:49 PM DESIGNER AND PATTERNMAKER) P athologist Signature Protein Random 72 (H) 1 - 14 LABDE SCAN Urine mg/dL (External) Creatinine 104.0 63.0 - LABDE SCAN Urine mg/dL 166.0 (External) mg/dL Protein Total 0.7 (H) <0.2 LABDE SCAN Ur per Cr (External) Specimen (Source) Anatomical Collection Method Collection Time Re ceived Time Location / / Volume Laterality Urine specimen 09/04/2018 2:49 PM (specimen) DESIGNER AND PATTERNMAKER Narrative BREEZE PFT - 09/06/2018 9:13 AM DESIGNER AND PATTERNMAKER Verified by Cassie Florian on 09/06/2018. Patient Reported LAB - URINE ORDERABLES Performing Organization Address City/State/ZIP Code Phon e Number BREEZE PFT LABDE SCAN documented in this encounter Visit Diagnoses Not on filedocumented in this encounter Care Teams Wire Frame Dipper Relationship Specialty Start Date End Date Momo Forbes PCP - General Family Practice 01/02/14 [facility] [address] [place] [address] Joseph Quintana, Assigned Nephrology 03/29/21 MD Provider [address] [place] [address] [address] [place] [address] documented as of this encounter
--- OUTSIDE RECORDS SUMMARY | 2022-07-05 14:42 | XMS_ITS | Encounter Summary ---
:1950 Author Organization [place] Address [facility] [place] [address] Care Team Providers Name Role Phone Momo Forbes Primary Care Provider Reason for Visit Reason Onset Date Comments Transplant Pharmacy Medication Review 01/19/2018 Encounter Details Date Type Department Care Team Description 01/19/2018 Telephone [facility] Beny Staton, Transplant Pharmacy [address] [facility] [place] [address] [facility] [phone] PHARMACY [place], [place] [address] Social History Tobacco Use Types Packs/Day Years [...] on filedocumented in this encounter Care Teams Chassis Wirer Relationship Specialty Start Date End Date Momo Forbes PCP - General Family Practice 01/02/14 [facility] [address] [place] [address] documented as of this encounter
--- OUTSIDE RECORDS SUMMARY | 2022-07-05 14:42 | XMS_ITS | Encounter Summary ---
:1950 Author Organization [place] Address [facility] [place] [address] Care Team Providers Name Role Phone Momo Forbes Primary Care Provider Reason for Visit Reason Onset Date Comments Transplant 08/31/2017 Encounter Details Date Type Department Care Team Description 08/31/2017 Telephone [facility] Transplant Amanda Garduno Transplant [facility] M, RN [address] [place] [phone] Social History Tobacco Use Types Packs/Day [...] on filedocumented in this encounter Care Teams Pewter Caster Relationship Specialty Start Date End Date Momo Forbes PCP - General Family Practice 01/02/14 [facility] [address] [place] [address] documented as of this encounter
--- OUTSIDE RECORDS SUMMARY | 2022-07-05 14:42 | XMS_ITS | Encounter Summary ---
:1950 Author Organization [place] Address [address] [place] [address] Care Team Providers Name Role Phone Forbes, Momo He Primary Care Provider Encounter Details Date Type Department Care Team Description 05/30/2017 Hospital Encounter [facility] Orlando Richey, [facility] [address] [address] [phone] (Wo rk) Social History Tobacco Use Types [...] filedocumented in this encounter Care Teams Surveyor Oil Well Directional Relationship Specialty Start Date End Date Momo Forbes PCP - General Family Practice 01/02/14 [facility] [address] [place] [address] documented as of this encounter
--- OUTSIDE RECORDS SUMMARY | 2022-07-05 14:42 | XMS_ITS | Encounter Summary ---
:1950 Author Organization [place] Address [facility] [address] Care Team Providers Name Role Phone Momo Forbes Primary Care Provider Reason for Visit Reason Onset Date Comments Refill Request 08/31/2017 mycophenolate Encounter Details Date Type Department Care Team Description 08/31/2017 Refill M [facility] Mariano, Joseph Refill R equest Transplant Clinic MD Herminio (mycophenolate) [address] [place] [phone] [place] [address] (Wo rk) Social History Tobacco [...] transplant documented in this encounter Care Teams Ground Support Equipment Fitter Relationship Specialty Start Date End Date Momo Forbes PCP - General Family Practice 01/02/14 [facility] [address] [place], [place] [id number] documented as of this encounter
--- OUTSIDE RECORDS SUMMARY | 2022-07-05 14:42 | XMS_ITS | Encounter Summary ---
:1950 Author Organization [place] Address [address] [place] [address] Care Team Providers Name Role Phone Momo Forbes Primary Care Provider Joseph Quintana MD Unavailable Encounter Details Date Type Department Care Team Description 05/15/[address] [facility] Nurse, [facility] Transplant Clinic [address] [place] [address] Social History Tobacco Use Types [...] 54 (L) >60 LABDE SCAN (if ml/min/1.7 Indian) 3m2 (External) GFR Estimated 44 (L) >60 [...] on filedocumented in this encounter Care Teams Ham Marker Relationship Specialty Start Date End Date Momo Forbes PCP - General Family Practice 01/02/14 [facility] [address] [place] [address] Joseph Quintana, Assigned Nephrology 03/29/21 MD Provider 717 [facility] 353 [facility] [address] [place] [address] documented as of this encounter
--- OUTSIDE RECORDS SUMMARY | 2022-07-05 14:42 | XMS_ITS | Encounter Summary ---
:1950 Author Organization [place] Address [address] [place] [address] Care Team Providers Name Role Phone Momo Forbes Primary Care Provider Reason for Visit Reason Onset Date Comments Refill Request 12/19/2017 Encounter Details Date Type Department Care Team Description 12/19/2017 Refill [facility] Joseph Quintana MD Refill Request Transplant Clinic [address] [place] [address] [address] [place] [phone] [place] [address] (Wo rk) Social History [...] Fill Date: 11/14/17 Quantity: 60 Janelle Flowers [facility] [phone] documented in this encounter Plan of Treatment Not on filedocumented as of this encounter Visit Diagnoses Diagnosis 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
--- OUTSIDE RECORDS SUMMARY | 2022-07-05 14:42 | XMS_ITS | Encounter Summary ---
:1950 Author Organization [place] Address [address] [place] [address] Care Team Providers Name Role Phone Momo Forbes Primary Care Provider Encounter Details Date Type Department Care Team Description 11/03/2017 Orders Only [facility] Loy Morales, Rachid olivia replaced by [facility] MD transplant Laboratory [address] [facility] 500 [facility] [address] [place] [phone] (Wo rk) Social History Tobacco Use Types [...] Results Tacrolimus level (11/03/2017 11:30 AM CDT) [facility] Method Time Signature Tacrolimus Not Provided 11/05/2017 [facility] Last Dose 2:20 PM CDT [facility] Tacrolimus 10.7 5.0 - 11/06/2017 [facility] Level 15.0 ug/L 1:00 PM CDT [facility] Comment: Tacrolimus Reference Range Kidney Transplant [...] e Number [facility] [address] [place], [place] [id number] [place] [address] documented in this encounter Visit Diagnoses Diagnosis Kidney replaced by transplant documented in this encounter Care Teams Review Nurse Relationship Specialty Start Date End Date Momo Forbes PCP - General Family Practice 01/02/14 [facility] [address] [place] [address] documented as of this encounter
--- OUTSIDE RECORDS SUMMARY | 2022-07-05 14:42 | XMS_ITS | Encounter Summary ---
:1950 Author Organization [place] Address [facility] [place] [address] Care Team Providers Name Role Phone Momo Forbes Primary Care Provider Reason for Visit Reason Onset Date Comments Refill Request 12/22/2018 prograf, mycophenola te (PT IS OUT OF MEDS) Encounter Details Date Type Department Care Team Description 12/22/[address] [facility] Joseph Quintana Refsid R alenest (prograf, Transplant Clinic MD Herminio mycophenolate (PT IS OUT [address] [facility] [address] [facility] SE OF MEDS)) [facility] 353 [facility] [address] [phone] [place], [place] [phone] ( rk) Social History Tobacco Use Types [...] transplant documented in this encounter Care Teams Ski Tow Operator Relationship Specialty Start Date End Date Momo Forbes PCP - General Family Practice 01/02/14 [facility] [address] [place] [address] documented as of this encounter
--- OUTSIDE RECORDS SUMMARY | 2022-07-05 14:42 | XMS_ITS | Encounter Summary ---
:1950 Author Organization [place] Address [facility] [place] [address] Care Team Providers Name Role Phone Momo [...] filedocumented in this encounter Care Teams Television Director Relationship Specialty Start Date End Date Momo Forbes PCP - General Family Practice 01/02/14 [facility] [address] [place] [address] documented as of this encounter
--- OUTSIDE RECORDS SUMMARY | 2022-07-05 14:42 | XMS_ITS | Encounter Summary ---
:1950 Author Organization [place] Address [address] [place] [address] Care Team Providers Name Role Phone Forbes, Ton Primary Care Provider Reason for Visit Reason Onset Date Comments Refill Request 10/25/2018 Encounter Details Date Type Department Care Team Description 10/25/2018 Refill [facility] Joseph Quintana MD Refill Request Transplant Clinic [address] [place] [address] [address] [place], [place] [phone] [place] [address] (Wo rk) Social History Tobacco [...] Marianne Urias RN - 10/26/2018 9:04 AM AMORTIZATION SCHEDULE CLERK ISSUE: Refill request for MMF 03/2019 [...] to call if further questions or concerns. 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
--- OUTSIDE RECORDS SUMMARY | 2022-07-05 14:42 | XMS_ITS | Encounter Summary ---
:1950 Author Organization [place] Address [address] [place] [address] Care Team Providers Name Role Phone Momo Forbes Primary Care Provider Encounter Details Date Type Department Care Team Description 07/15/2017 Orders Only [facility] Loy Morales Kid olivia replaced by [facility] MD transplant Laboratory [address] [facility] 500 [facility] [address] [place] [phone] (Wo rk) Social History Tobacco Use Types [...] by Results for this MASS SPECTROMETRY AM MESS COOK transplant procedure are in the results section. documented in this encounter Results (ABNORMAL) Tacrolimus level (07/15/2017 10:48 AM [facility]) [facility] Method Time Signature Tacrolimus Last 0000 07/19/2017 [facility] Dose 07/15/17 10:48 AM [facility] Tacrolimus 4.4 (L) 5.0 - 07/19/2017 [facility] Level 15.0 ug/L 2:38 PM [facility] Comment: Tacrolimus Reference Range Kidney [...] Blood specimen 07/15/2017 10:48 7 (specimen) AM MESS COOK 10:47 AM MESS COOK Orlando Richey MD LAB - BLOOD ORDERABLES Performing Organization Address City/State/ZIP Code Phon e Number [facility] [address] [address] [facility] 500 [place] [address] [facility] documented in this encounter Visit Diagnoses Diagnosis Kidney replaced by transplant documented in this encounter Care Teams Manager Renewable Energy Relationship Specialty Start Date End Date Momo Forbes PCP - General Family Practice 01/02/14 [facility] 1999 [place] [address] documented as of this encounter
--- OUTSIDE RECORDS SUMMARY | 2022-07-05 14:42 | XMS_ITS | Encounter Summary ---
:1950 Author Organization [place] Address [address] [place] [address] Care Team Providers Name Role Phone Momo Forbes Primary Care Provider Reason for Visit Reason Comments RECHECK annual Follow up Kidney TX Encounter Details Date Type Department Care Team Description 10/17/2018 Office Visit [facility] Shiva Presley MD [facility] [address] [facility] [address] [place], [place] [phone] Type 2 diabetes mellitus with other spec ified complication, with long-term current use of insulin (H) (Primary Dx); Nephrology Clinic [facility] Kidney/Pancreas Recipient Kidney replaced by transplant; [facility] following organ tr ansplant; 9[address] [facility] Immunosupp ression (H); SE HTN, kidney transplant relat ed; [place], [place] Severe obesi ty in adult, BMI [...] Comments Blood Pressure 162/77 10/17/2018 1:54 PM PEDIGREE RESEARCHER Pulse 60 10/17/2018 1:54 PM PEDIGREE RESEARCHER Temperature 36.5 ??C (97.7 ??F) 10/17/2018 1:54 PM PEDIGREE RESEARCHER Respiratory Rate - - Oxygen Saturation 94% 10/17/2018 1:54 PM PEDIGREE RESEARCHER Inhaled Oxygen Concentration - - Weight 133.7 kg (294 lb 12.8 oz) 10/17/2018 1:54 PM PEDIGREE RESEARCHER Height - - Body Mass Index 39.98 10/10/2017 2:25 PM PEDIGREE RESEARCHER documented in this encounter Progress Notes Joseph [...] then 50%0. Also offered to refer to grounds caretaker. # Mineral Bone Disorder: - Secondary renal [...] PREVIOUSLY REPORTED 1999 MPACID 1.39 MPAG 80.2 GREE RESEARCHER documented in this encounter Nursing Notes Martina [...] kg (294 lb 12.8 oz). Martina Boyle GREE RESEARCHER documented in this encounter Plan of Treatment [...] >40 documented in this encounter Care Teams Strapper And Buffer Relationship Specialty Start Date End Date Momo Forbes PCP - General Family Practice 01/02/14 [facility] 1999 [place] [address] documented as of this encounter
--- OUTSIDE RECORDS SUMMARY | 2022-07-05 14:42 | XMS_ITS | Encounter Summary ---
:1950 Author Organization [place] Address [address] [place] [address] Care Team Providers Name Role Phone Momo Forbes Primary Care Provider Reason for Visit Reason Onset Date Comments Transplant 09/12/2017 Encounter Details Date Type Department Care Team Description 09/12/2017 Telephone [facility] Transplant Nazia Jacobson, Transplant Clinic RN [address] [place], [place] [phone] Social History Tobacco Use [...] updated standing lab order and faxed to [facility] lab. NSE AND PERMIT SPECIALIST Telephone Encounter - Nazia Jacobson, RN - 09/12/2017 8:36 AM LICENSE AND PERMIT SPECIALIST ISSUE: Hyperglycemia (blood sugar 300-600s w/ last 2 blood draws) Overdue for transplant labs COAL MINER TASK: Call Diego Guthrie and ask him who is managing his diabetes? Does he have an mirror framer? He needs to have better blood sugar control, elevated blood sugars can cause damage to his kidney. Remind him that he should be getting transplant labs done monthly. (3 years out from kidney transplant) Send updated lab letter. NSE AND PERMIT SPECIALIST documented in this encounter Plan of Treatment Not on filedocumented as of this encounter Visit Diagnoses Not on filedocumented in this encounter Care Teams Paradichlorobenzene Tender Relationship Specialty Start Date End Date Momo Forbes PCP - General Family Practice 01/02/14 [facility] [address] [place] [address] documented as of this encounter
--- OUTSIDE RECORDS SUMMARY | 2022-07-05 14:42 | XMS_ITS | Encounter Summary ---
:1950 Author Organization [place] Address [facility] [place] [address] Care Team Providers Name Role Phone Momo Forbes Primary Care Provider Encounter Details Date Type Department Care Team Description 08/18/2018 Documentation Only [facility] Josseline Recinos, Transplant Clinic RN 909 [place] [address] Social History Tobacco Use Types [...] updated: 08/17/18 Lab orders faxed to: [facility] [phone] (Phone) Lab orders up to date in [facility]. ONOLOGY PHYSICIAN documented in this encounter Plan of Treatment Not on filedocumented as of this encounter Visit Diagnoses Not on filedocumented in this encounter Care Teams Animal Husbandry Manager Relationship Specialty Start Date End Date Momo Forbes PCP - General Family Practice 01/02/14 [facility] 1999 [place], [place] [id number] documented as of this encounter
--- OUTSIDE RECORDS SUMMARY | 2022-07-05 14:42 | XMS_ITS | Encounter Summary ---
:1950 Author Organization [place] Address [facility] [place] [address] Care Team Providers Name Role Phone Momo Forbes Primary Care Provider Reason for Visit Reason Onset Date Comments Refill Request 10/11/2017 Encounter Details Date Type Department Care Team Description 10/11/2017 Refill [facility] Transplant Debbie Calderon LPN Refill Request Clinic [address] [place] [address] [phone] Social History Tobacco Use Types Packs/Day [...] transplant documented in this encounter Care Teams Outreach Rep Relationship Specialty Start Date End Date Momo Forbes PCP - General Family Practice 01/02/14 [facility] [address] [place] [address] documented as of this encounter
--- OUTSIDE RECORDS SUMMARY | 2022-07-05 14:42 | XMS_ITS | Encounter Summary ---
:1950 Author Organization [place] Address [facility] [place] [address] Care Team Providers Name Role Phone Momo Forbes Primary Care Provider Reason for Visit Reason Onset Date Comments Refill Request 06/28/2017 mycophenolate Encounter Details Date Type Department Care Team Description 06/28/2017 Refill [facility] Joseph Quintana Refill R equest Transplant Clinic MD Herminio (mycophenolate) [address] [place] [address] [phone] [place] [address] (Wo rk) Social History Tobacco [...] Fill Date: 05/31/17 Quantity: 180 Jan[facility] [phone] [place] documented in this encounter Plan of Treatment Not on filedocumented as of this encounter Visit Diagnoses Diagnosis Kidney transplanted - Primary Kidney replaced by transplant documented in this encounter Care Teams Machine Featheredger And Reducer Relationship Specialty Start Date End Date Momo Forbes PCP - General Family Practice 01/02/14 [facility] [address] [place] [address] documented as of this encounter
--- OUTSIDE RECORDS SUMMARY | 2022-07-05 14:42 | XMS_ITS | Encounter Summary ---
:1950 Author Organization [place] Address [address] [place] [address] Care Team Providers Name Role Phone ForbesMomo Primary Care Provider Reason for Visit Reason Onset Date Comments Appointment 08/24/2018 Encounter Details Date Type Department Care Team Description 08/24/2018 Telephone [facility] Nephrology Romi Garcia RN Appointment [facility] [phone] ([facility]) [address] [place] [address] [phone] Social History Tobacco Use Types Packs/Day [...] patient to call back. Romi Rodriguez RN DRIVER HELPER Telephone Encounter - Romi Rodriguez RN - 08/24/2018 1:54 PM CST Left voicemail for patient to call back (follow up from last transplant appointment). Romi Rodriguez RN DRIVER HELPER documented in this encounter Plan of Treatment Not on filedocumented as of this encounter Visit Diagnoses Not on filedocumented in this encounter Care Teams Block Cleaner Relationship Specialty Start Date End Date Momo Forbes PCP - General Family Practice 01/02/14 [facility] [address] [place] [address] documented as of this encounter
--- OUTSIDE RECORDS SUMMARY | 2022-07-05 14:42 | XMS_ITS | Encounter Summary ---
:1950 Author Organization [place] Address [address] [facility] [place] [address] Care Team Providers Name Role Phone Momo Forbes Primary Care Provider Reason for Visit Reason Onset Date Comments Transplant Pharmacy Medication Review 01/10/2019 Encounter Details Date Type Department Care Team Description 01/10/2019 Telephone [facility] Meghan Mccormack [facility] [address] [facility] [place] [address] PHARMACY [phone] [place] [phone] (Wo rk) Social History Tobacco Use Types [...] on filedocumented in this encounter Care Teams Living Manager Relationship Specialty Start Date End Date Momo Forbes PCP - General Family Practice 01/02/14 [facility] [address] [place] [address] documented as of this encounter
--- OUTSIDE RECORDS SUMMARY | 2022-07-05 14:42 | XMS_ITS | Encounter Summary ---
:1950 Author Organization [place] Address [address] [place] [address] Care Team Providers Name Role Phone Momo Forbes Primary Care Provider Reason for Visit Reason Comments RECHECK Kidney tx follow up Encounter Details Date Type Department Care Team Description 10/10/2017 Office Visit [facility] Shiva Presley Sta tus post kidney transplant (Primary Dx); Nephrology Clinic Immunosuppression (H); [facility] Type 2 diabetes mellitus wit h stage 3 chronic kidney disease, with long-term current use of insulin (H); [address] [place] [address] Benign essential hypertension; [place] [address] Hyperlipidemia, unspecified hyperlipidemia type; [place], [place] RANJAN 220 Skin cancer screening [phone] [place] [address] (Wo rk) Social History Tobacco [...] Comments Blood Pressure 153/74 10/10/2017 2:25 PM RN TELEHEALTH Pulse 55 10/10/2017 2:25 PM RN TELEHEALTH Temperature 36.7 ??C (98.1 ??F) 10/10/2017 2:25 PM RN TELEHEALTH Respiratory Rate - - Oxygen Saturation 98% 10/10/2017 2:25 PM RN TELEHEALTH Inhaled Oxygen Concentration - - Weight 135.4 kg (298 lb 6.4 oz) 10/10/2017 2:25 PM RN TELEHEALTH Height 182.9 cm (6') 10/10/2017 2:25 PM RN TELEHEALTH Body Mass Index 40.47 10/10/2017 2:25 PM RN TE[facility]HEALTH documented in this encounter Progress Notes Shiva [...] is well as a referral to his washer engineer helper for monitoring for any skin cancers. 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 TE[facility]ALTH documented in this encounter Nursing Notes Marcelina [...] oz). Medication Reconciliation: amparo ZURITA CMA . TELEHEALTH documented in this encounter Plan of Treatment [...] skin documented in this encounter Care Teams Drill Operator Pneumatic Relationship Specialty Start Date End Date Momo Forbes PCP - General Family Practice 01/02/14 [facility] [address] [place] [address] documented as of this encounter
--- OUTSIDE RECORDS SUMMARY | 2022-07-05 14:42 | XMS_ITS | Encounter Summary ---
:1950 Author Organization [place] Address [address] [place] [address] Care Team Providers Name Role Phone Momo Forbes Primary Care Provider Encounter Details Date Type Department Care Team Description 05/15/2018 Orders Only [facility] Loy Morales MD [facility] [address] [facility] [address] 500 [place], [place] [address] [place] [address] [phone] Social History Tobacco Use Types Packs/Day Years [...] (ABNORMAL) Tacrolimus level (05/15/2018 2:13 PM CDT) [facility] Method Time Signature Tacrolimus Not Provided 05/18/2018 [facility] Last Dose 7:24 AM CDT [facility] Tacrolimus 3.4 (L) 5.0 - 05/18/2018 [facility] Level 15.0 ug/L 7:24 AM CDT [facility] Comment: Tacrolimus [...] LAB - BLOOD ORDERABLES Performing Organization Address City/State/[facility] Phon e Number [address] Cyclosporine (05/15/2018 2:13 PM CDT) Component Value Ref Test Analysis Performed At [facility] gist Range Method Time Signature Cyclosporine CANCELLED BY 05/17/2018 [facility] Last Dose BOGDAN KOLB 1:00 PM CDT [facility] ON [facility] 05/17/18 AT CAMPUS 1300 BY [place] Comment: CORRECTED ON 05/17 AT 1300: PRE VIOUSLY REPORTED [id number] Cyclosporine Level CANCELLED BY RN 50 - 400 05/17/2018 1:00 [facility] [place] ug/L PM CDT [facility] ON [facility] 05/17/18 AT 1300 BY [place] Comment: CORRECTED ON 05/17 AT 1300: PRE VIOUSLY REPORTED <25 Specimen Anatomical Collection Method Collection Time Receive d Time (Source) Location / / Volume Laterality 05/15/2018 2:13 PM 8 9:59 CDT AM CDT Orlando Richey MD LAB - BLOOD ORDERABLES Performing Organization Address City/[facility] Phon e Number [address] documented in this encounter Visit Diagnoses Not on filedocumented in this encounter Care Teams Catering Driver Relationship Specialty Start Date End Date Momo Forbes PCP - General Family Practice 01/02/14 [facility] [address] [place] [address] documented as of this encounter
--- OUTSIDE RECORDS SUMMARY | 2022-07-05 14:42 | XMS_ITS | Encounter Summary ---
:1950 Author Organization [place] Address [facility] [address] Care Team Providers Name Role Phone Momo Forbes Primary Care Provider Encounter Details Date Type Department Care Team Description 05/17/2018 Orders Only [facility] Alana Calderon Afterc are following Transplant rocket assembly operator organ transplant [address] [place] [address] (Primary Dx) [place] [address] Social History Tobacco Use Types [...] rimary documented in this encounter Care Teams Coil Machine Supervisor Relationship Specialty Start Date End Date Momo Forbes PCP - General Family Practice 01/02/14 [facility] [address] [place] [address] documented as of this encounter
--- OUTSIDE RECORDS SUMMARY | 2022-07-05 14:42 | XMS_ITS | Encounter Summary ---
:1950 Author Organization [place] Address [address] [place] [address] Care Team Providers Name Role Phone Momo Forbes Primary Care Provider Encounter Details Date Type Department Care Team Description 05/31/2017 Orders Only [facility] Loy Morales, Kid olivia replaced by [facility] MD transplant Laboratory 420 [facility] 500 [facility] 609 [place] [phone] (Wo rk) Social History Tobacco Use Types [...] (ABNORMAL) Tacrolimus level (05/30/2017 1:01 PM CDT) [facility] Method Time Signature Tacrolimus Last 05/29/17 05/31/2017 [facility] Dose 1930 1:05 PM CDT [facility] Tacrolimus 3.0 (L) 5.0 - 05/31/2017 [facility] Level 15.0 ug/L 7:54 PM CDT [facility] Comment: Tacrolimus Reference [...] its performa nce characteristics determined by the [facility], ??Special [...] Phon e Number [facility] 500 [place] [address] [facility] documented in this encounter Visit Diagnoses Diagnosis Kidney replaced by transplant documented in this encounter Care Teams Flat Breakdown Processor Relationship Specialty Start Date End Date Momo Forbes PCP - General Family Practice 01/02/14 [facility] [address] [place] [address] documented as of this encounter
--- OUTSIDE RECORDS SUMMARY | 2022-07-05 14:42 | XMS_ITS | Encounter Summary ---
:1950 Author Organization [place] Address [facility] [place] [address] Care Team Providers Name Role Phone Momo Forbes Primary Care Provider Reason for Visit Reason Onset Date Comments Erroneous encounter-disregard 05/17/2018 Encounter Details Date Type Department Care Team Description 05/17/2018 Telephone [facility] Etcheverry, Erroneous Transplant Clinic BOGDAN Lopes encounter-disregard [address] [place] [phone] Social History Tobacco Use Types Packs/Day [...] filedocumented in this encounter Care Teams Utilization Review Rn Relationship Specialty Start Date End Date Momo Forbes PCP - General Family Practice 01/02/14 [facility] [address] [place] [address] documented as of this encounter
--- OUTSIDE RECORDS SUMMARY | 2022-07-05 14:42 | XMS_ITS | Encounter Summary ---
:1950 Author Organization [place] Address [address] [place] [address] Care Team Providers Name Role Phone Momo Forbes Primary Care Provider Reason for Visit Reason Onset Date Comments Transplant 10/18/2018 post transplant sche duling Encounter Details Date Type Department Care Team Description 10/18/2018 Telephone [facility] Nazia Jacobson Transplant (post Transplant Clinic BOGDAN Hickstechnical asst scheduling) [address] [place] [phone] Social History Tobacco Use Types Packs/Day [...] another detailed message with weight managements number. ECTOR AND CLIPPER Telephone Encounter - Maribel Plunkett - 10/18/2018 9:32 AM CST I attempted to contact pt to give him the number for weight management, as they want to talk directly to the patient when scheduling initial appointment, and reached his VM. I LVM asking him to return my call. ECTOR AND CLIPPER documented in this encounter Plan of Treatment Not on filedocumented as of this encounter Visit Diagnoses Not on filedocumented in this encounter Care Teams Fire Equipment Operator Relationship Specialty Start Date End Date Momo Forbes PCP - General Family Practice 01/02/14 [facility] [address] [place] [address] documented as of this encounter
--- OUTSIDE RECORDS SUMMARY | 2022-07-05 14:42 | XMS_ITS | Encounter Summary ---
:1950 Author Organization [place] Address [address] [place] [address] Care Team Providers Name Role Phone ForbesMomo Primary Care Provider Reason for Visit Reason Onset Date Comments Transplant 06/01/2017 Diego returning call Left on 06/05/17 Encounter Details Date Type Department Care Team Description 06/01/2017 Telephone [facility] Shiva Kahn, superintendent tests ([facility] Transplant Clinic [facility] returning call Left [address] on 06/05/17) [place], [place] [phone] [place], [place] [phone] Social History Tobacco Use Types Packs/Day [...] VM to call him on Tuesday06/06/17. ADDENDUM: BATTERY ASSEMBLER DRY CELL TASK: Call with questions and instruction per [...] filedocumented in this encounter Care Teams Hand Inserter Operator Relationship Specialty Start Date End Date Momo Forbes PCP - General Family Practice 01/02/[address] [address] documented as of this encounter
--- OUTSIDE RECORDS SUMMARY | 2022-07-05 14:42 | XMS_ITS | Encounter Summary ---
:1950 Author Organization [place] Address [facility] [place] [address] Care Team Providers Name Role Phone Momo Forbes Primary Care Provider Reason for Visit Reason Onset Date Comments Refill Request 10/10/2017 mycophenolae Encounter Details Date Type Department Care Team Description 10/10/2017 Refill [facility] Joseph Quintana Refill R equest Transplant Clinic MD Herminio (mycophenolae ) [address] [place] [address] [phone] [place] [address] (Wo rk) Social History Tobacco [...] Fill Date: 09/01/17 Quantity: 180 Janelle Flowers [facility] [phone] CIPAL STATISTICAL SCIENTIST documented in this encounter Plan of Treatment Not on filedocumented as of this encounter Visit Diagnoses Diagnosis 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 [address] [place] [address] documented as of this encounter
--- OUTSIDE RECORDS SUMMARY | 2022-07-05 14:42 | XMS_ITS | Encounter Summary ---
:1950 Author Organization [place] Address [address] [place] [address] Care Team Providers Name Role Phone Momo Forbes Primary Care Provider Reason for Visit Reason Onset Date Comments Transplant Lab 09/06/2018 Encounter Details Date Type Department Care Team Description 09/06/2018 Telephone [facility] Transplant Adonay, Transplant Lab Clinic BOGDAN Lopes [address] [address] [phone] Social History Tobacco Use Types Packs/Day Years Used Date Smoking Tobacco: Former Cigars Quit : 08/22/2006 Smokeless Tobacco: Never Alcohol Use Standard Drinks/Week Comments Yes 0 (1 standard drink = 0.6 oz pure alcoho l) occasional drink. Sex Assigned at Date Recorded Not on file documented as of this encounter Miscellaneous Notes Telephone Encounter - Marianne Urias RN - 09/12/2018 11:58 AM INFORMATION TECHNOLOGY CONSULTANT Attempted to reach pt again regarding his labs, no answer. Left message for pt to return call. RMATION TECHNOLOGY CONSULTANT Telephone Encounter - Marianne Urias RN - 09/07/2018 1:30 PM INFORMATION TECHNOLOGY CONSULTANT Attempted to reach pt again regarding labs, no answer. Left message for pt to return call. RMATION TECHNOLOGY CONSULTANT Telephone Encounter - Marianne Urias RN - 09/06/2018 12:59 PM INFORMATION TECHNOLOGY CONSULTANT ISSUE: Creatinine 1.69, up from pt baseline [...] Left message for pt to return call. RMATION TECHNOLOGY CONSULTANT documented in this encounter Plan of Treatment Not on filedocumented as of this encounter Visit Diagnoses Not on filedocumented in this encounter Care Teams Machine Tool Electrician Relationship Specialty Start Date End Date Momo Forbes PCP - General Family Practice 01/02/14 [facility] [address] [place] [address] documented as of this encounter
--- OUTSIDE RECORDS SUMMARY | 2022-07-05 14:42 | XMS_ITS | Encounter Summary ---
:1950 Author Organization [facility] Address [address] [place] [address] Care Team Providers Name Role Phone Momo Forbes Primary Care Provider Reason for Referral Consultation - Closed Specialty Diagnoses / Procedures Referred By Contact Refer red To Contact Diagnoses Obesity Kidney transplanted [facility] Other Services [address] [place] [address] Referral ID Status Reason Start Date Expiration Date Visits Requ ested Visits Authorized [id number] Closed 10/17/2018 10/17/2019 1 1 OGICS SPECIALIST Reason for Visit Reason Comments Transplant Encounter Details Date Type Department Care Team Description 10/17/2018 Orders Only [facility] Kavon Nazia Obesity (P rimary Dx); Transplant Clinic BOGDAN Hicks Kidney transplanted [address] [place] [address] Social History Tobacco Use [...] transplant documented in this encounter Care Teams Simulation Technician Relationship Specialty Start Date End Date Forbes, Ton PCP - General Family Practice 01/02/14 [facility] [address] [place] [address] documented as of this encounter
--- OUTSIDE RECORDS SUMMARY | 2022-07-05 14:42 | XMS_ITS | Encounter Summary ---
:1950 Author Organization [place] Address [address] [place] [address] Care Team Providers Name Role Phone Momo Forbes Primary Care Provider Joseph Quintana MD Unavailable Encounter Details Date Type Department Care Team Description 09/09/2017 External Order [facility] Nurse, [place]x Kidney replaced by Results Transplant Clinic transplant [address] [place] [phone] Social History Tobacco Use Types Packs/Day [...] 07/15/2017 10:48 AM Result s for this MAPPING SUPERVISOR procedure are i n the results section. BASIC METABOLIC Routine 07/15/2017 10:48 AM Kidney replaced by Results for this PANEL MAPPING SUPERVISOR transplant procedure are i n the [...] Results (ABNORMAL) Hemoglobin A1c (07/15/2017 10:48 AM MAPPING SUPERVISOR) Patholo gist Method Time Signature Hemoglobin A1C >14.0 (H) <=6.4 % LABDE SCAN (External) Specimen (Source) Anatomical Collection Method Collection Time Re ceived Time Location / / Volume Laterality Blood specimen 07/15/2017 10:48 (specimen) AM MAPPING SUPERVISOR Narrative JESSICA PFT - 09/09/2017 9:36 PM MAPPING SUPERVISOR Verified by Sharon Martinez on 8. Patient Reported LAB - BLOOD ORDERABLES Performing Organization Address City/State/ZIP Code Phon e Number JESSICA PFT LABDE SCAN (ABNORMAL) Basic metabolic panel (07/15/2017 10:48 AM MAPPING SUPERVISOR) Analysis Performed At Patho logist Time [...] 55 (L) >60 LABDE SCAN (if ml/min/1.7 [place]) 3m2 (External) GFR Estimated 46 (L) >60 LABDE SCAN (External) ml/min/1.7 3m2 Specimen (Source) Anatomical Collection Method Collection Time Re ceived Time Location / / Volume Laterality Blood specimen 07/15/2017 10:48 (specimen) AM MAPPING SUPERVISOR Narrative BREEZE PFT - 09/09/2017 9:36 PM MAPPING SUPERVISOR Verified by Sharon Martinez on 8. Oralndo Richey MD LAB - BLOOD ORDERABLES Performing [...] Narrative BREEZE PFT - 09/09/2017 9:39 PM MAPPING SUPERVISOR Verified by Sharon Martinez on 8. [...] Narrative BREEZE PFT - 09/09/2017 9:39 PM MAPPING SUPERVISOR Verified by Sharon Martinez on 8. [...] 51 (L) >60 LABDE SCAN (if ml/min/1.7 [place]) 3m2 (External) GFR Estimated 42 (L) >60 LABDE SCAN (External) ml/min/1.7 3m2 Specimen (Source) Anatomical Collection Method Collection Time Re ceived Time Location / / Volume Laterality Blood specimen 05/30/2017 9:32 AM (specimen) CDT Narrative BREEZE PFT - 09/09/2017 9:39 PM MAPPING SUPERVISOR Verified by Sharon Martinez on 8. [...] Narrative BREEZE PFT - 09/09/2017 9:44 PM MAPPING SUPERVISOR Verified by Sharon Martinez on 8. [...] Narrative BREEZE PFT - 09/09/2017 9:44 PM MAPPING SUPERVISOR Verified by Sharon Martinez on 8. Patient Reported LAB - BLOOD ORDERABLES Performing Organization Address City/[facility] Code Phon e Number BREEZE PFT LABDE SCAN (ABNORMAL) Hemoglobin A1c (01/19/2017 9:30 AM CDT) Analysis Performed At [facility] logist Time Signature Hemoglobin A1C 12.4 (H) <=6.4 % LABDE SCAN (External) Specimen (Source) Anatomical Collection Method Collection Time Re ceived Time Location / / Volume Laterality Blood specimen 01/19/2017 9:30 AM (specimen) CDT Narrative BREEZE PFT - 09/09/2017 9:44 PM MAPPING SUPERVISOR Verified by Sharon Martinez on 8. [...] 55 (L) >60 LABDE SCAN (if ml/min/1.7 [place]) 3m2 (External) GFR Estimated 46 (L) >60 LABDE SCAN (External) ml/min/1.7 3m2 Specimen (Source) Anatomical Collection Method Collection Time Re ceived Time Location / / Volume Laterality Blood specimen 01/19/2017 9:30 AM (specimen) CDT Narrative JESSICA PFT - 09/09/2017 9:44 PM MAPPING SUPERVISOR Verified by Sharon Martinez on 8. Patient Reported LAB - BLOOD ORDERABLES Performing Organization Address City/State/ZIP Code Phon e Number BREEZE PFT LABDE SCAN documented in this encounter Visit Diagnoses Diagnosis Kidney replaced by transplant documented in this encounter Care Teams Cycle Touring Guide Relationship Specialty Start Date End Date Momo Forbes PCP - General Family Practice 01/02/14 [facility] [address] [place] [address] Joseph Quintana, Assigned Nephrology 03/29/21 MD Provider [address] [place] [address] 353 [facility] [address] [place] [address] documented as of this encounter
--- OUTSIDE RECORDS SUMMARY | 2022-07-05 14:42 | XMS_ITS | Encounter Summary ---
:1950 Author Organization [place] Address [facility] [place] [address] Care Team Providers Name Role Phone Momo Forbes Primary Care Provider Encounter Details Date Type Department Care Team Description 11/10/2017 [facility] [place] [address] [phone] Social History Tobacco Use Types Packs/Day Years [...] documented in this encounter Care Teams Public Utilities Sales Representative Relationship Specialty Start Date End Date Momo Forbes PCP - General Family Practice 01/02/14 [facility] [address] [place] [address] documented as of this encounter
--- OUTSIDE RECORDS SUMMARY | 2022-07-05 14:43 | XMS_ITS | Encounter Summary ---
:1950 Author Organization [place] Address [address] [place] [address] Care Team Providers Name Role Phone Momo Forbes Primary Care Provider Joseph Quintana MD Unavailable Encounter Details Date Type Department Care Team Description 08/18/2016 External Order Results [facility] Trans[facility] [address] [place] [address] Social History Tobacco Use Types [...] 08/09/2016 12:21 PM Results for this RESULTS PERSONAL CARE ATTENDANT procedure are i n the results section. documented in this encounter Results (ABNORMAL) TXP External Lab Result (08/09/2016 12:21 PM PERSONAL CARE ATTENDANT) Analysis Performed At Patho logist Time [...] / / Volume Laterality 08/09/2016 12:21 PM PERSONAL CARE ATTENDANT Narrative BREEZE PFT - 08/18/2016 1:35 PM PERSONAL CARE ATTENDANT Verified by Jessica Major on 016. Patient Reported LABORATORY Performing Organization Address City/State/ZIP Code Phon e Number BREEZE PFT LABDE SCAN documented in this encounter Visit Diagnoses Not on filedocumented in this encounter Care Teams Euclid Operator Relationship Specialty Start Date End Date Momo Forbes PCP - General Family Practice 01/02/14 [facility] [address] [place] [address] Joseph Quintana, Assigned Nephrology 03/29/21 MD Provider [address] [place] [address] [address] [place], [place] [id number] documented as of this encounter
--- OUTSIDE RECORDS SUMMARY | 2022-07-05 14:43 | XMS_ITS | Encounter Summary ---
:1950 Author Organization [place] Address [facility] [place] [address] Care Team Providers Name Role Phone Momo Forbes Primary Care Provider Reason for Visit Reason Comments RECHECK 6 mo follow up,christiano cruz Encounter Details Date Type Department Care Team Description 04/20/2016 [facility] Renal hypertension, stage 1-4 or unspecified chronic kidney disease (Primary Dx); Nephrology Clinic Reactive depression; [address] Thrombocytopenia (H) 909 [facility] RANJAN [address] [place] [address] Social History Tobacco Use Types Packs/Day [...] Body Mass Index 41.55 09/02/2015 4:32 PM JACK SETTER documented in this encounter Progress Notes Chucho [...] encounter Results Folate RBC (10/25/2016 3:54 PM JACK SETTER) athologist Signature HCT Within 46.0 % [address] Folate RBC 663 ng/mL [facility] Comment: Reference range: >=366 (Note) Performed by [facility], [address] [place] [address] [email or web address], Geoff Reed MD, Lab. Director Specimen Anatomical Collection Method Collection Time Receive d Time (Source) Location / / Volume Laterality Blood specimen 10/25/2016 3:54 PM 017 3:55 (specimen) JACK SETTER PM JACK SETTER Chucho Joshi MD LAB - BLOOD ORDERABLES Performing Organization Address City/State/ZIP Code Phon e Number [address] [address] [facility] documented in this encounter Visit Diagnoses Diagnosis Renal hypertension, stage 1-4 or unspeci fied chronic kidney disease - Primary Reactive depression Dysthymic disorder Thrombocytopenia (H) Thrombocytopenia, unspecified documented in this encounter Care Teams Hat Parts Cutter Machine Relationship Specialty Start Date End Date Momo Forbes PCP - General Family Practice 01/02/14 [facility] [address] [place] [address] documented as of this encounter
--- OUTSIDE RECORDS SUMMARY | 2022-07-05 14:43 | XMS_ITS | Encounter Summary ---
:1950 Author Organization [place] Address [facility] [place] [address] Care Team Providers Name Role Phone Momo Forbes Primary Care Provider Reason for Visit Reason Comments RECHECK Kidney follow up Encounter Details Date Type Department Care Team Description 10/25/2016 Office Visit [facility] Anita Joshi MD Renal hypertension, Nephrology Clinic [address] [place] [address] 1-4 or [place] [address] unspecified chronic [address] [place], [place] [address] (Primary Dx) [address] [phone] Social History Tobacco Use Types Packs/Day Years [...] Comments Blood Pressure 168/83 10/25/2016 4:39 PM FARM WORKER Pulse 55 10/25/2016 4:39 PM FARM WORKER Temperature 36.8 ??C (98.3 ??F) 10/25/2016 4:39 PM FARM WORKER Respiratory Rate 18 10/25/2016 4:39 PM FARM WORKER Oxygen Saturation - - Inhaled Oxygen Concentration - - Weight 138.2 kg (304 lb 9.6 oz) 10/25/2016 4:39 PM FARM WORKER Height 182.9 cm (6') 10/25/2016 4:39 PM FARM WORKER Body Mass Index 41.31 10/25/2016 4:39 PM FARM WORKER documented in this encounter Progress Notes Chucho [...] (304 lb 9.6 oz). Medication Reconciliation: complete WORKER documented in this encounter Plan of Treatment Not on filedocumented as of this encounter Visit Diagnoses Diagnosis Renal hypertension, stage 1-4 or unspeci fied chronic kidney disease - Primary documented in this encounter Care Teams Benzene Still Utility Operator Relationship Specialty Start Date End Date Momo Forbes PCP - General Family Practice 01/02/14 [facility] [address] [place] [address] documented as of this encounter
--- OUTSIDE RECORDS SUMMARY | 2022-07-05 14:43 | XMS_ITS | Encounter Summary ---
:1950 Author Organization [place] Address [facility] [place] [address] Care Team Providers Name Role Phone Momo Forbes Primary Care Provider Reason for Visit Reason Onset Date Comments Refill Request 09/28/2016 Encounter Details Date Type Department Care Team Description 09/28/2016 Refill [facility] Anita Joshi MD Refill Request Nephrology Clinic [address] [place] [address] [place] [address] [phone] Social History Tobacco Use Types Packs/Day Years [...] 1:51 PM CST Last Office Visit with Territory Sales Professional: March 2016. Medication refilled per Nephrology Clinic protocol. Janes Jauregui RN T DESK MANAGER documented in this encounter Plan of Treatment Not on filedocumented as of this encounter Visit Diagnoses Diagnosis Reactive depression - Primary Dysthymic disorder documented in this encounter Care Teams Sales Service Coordinator Relationship Specialty Start Date End Date Momo Forbes PCP - General Family Practice 01/02/[address] [place] [address] documented as of this encounter
--- OUTSIDE RECORDS SUMMARY | 2022-07-05 14:43 | XMS_ITS | Encounter Summary ---
:1950 Author Organization [facility] Address [address] [place] [address] Care Team Providers Name Role Phone Momo Forbes Primary Care Provider Reason for Visit Reason Onset Date Comments Transplant 03/30/2016 refill Encounter Details Date Type Department Care Team Description 03/30/2016 Refill [facility] Transplant Deysi Burns MD Transplant (refill) 2nd Floor, Clinic [id number] [place] [address] [facility] [place] [address] Social History Tobacco Use Types [...] Date: 02/19/16 Quantity: 240 Thanks!! Janelle [facility] documented in this encounter Plan of Treatment Not on filedocumented as of this encounter Visit Diagnoses Diagnosis Kidney transplanted - Primary Kidney replaced by transplant documented in this encounter Care Teams Health Editor Relationship Specialty Start Date End Date Momo Forbes PCP - General Family Practice 01/02/14 [facility] [address] [place] [address] documented as of this encounter
--- OUTSIDE RECORDS SUMMARY | 2022-07-05 14:43 | XMS_ITS | Encounter Summary ---
:1950 Author Organization [facility] Address [address] [place] [address] Care Team Providers Name Role Phone Momo Forbes Primary Care Provider Reason for Visit Reason Onset Date Comments Transplant 05/10/2016 refill Encounter Details Date Type Department Care Team Description 05/10/2016 Refill The Transplant Chucho Perez MD Transplant (refill) 2nd Floor, Clinic [address] [place] [address] [facility] [address] Social History Tobacco Use Types [...] send new rx Thank you Janelle Flowers [facility] [phone] documented in this encounter Plan of Treatment Not on filedocumented as of this encounter Visit Diagnoses Diagnosis Kidney transplanted - Primary Kidney replaced by transplant documented in this encounter Care Teams Mechanical Intern Relationship Specialty Start Date End Date Momo Forbes PCP - General Family Practice 01/02/14 [facility] [address] [place] [id number] documented as of this encounter
--- OUTSIDE RECORDS SUMMARY | 2022-07-05 14:43 | XMS_ITS | Encounter Summary ---
:1950 Author Organization [place] Address [address] [place] [address] Care Team Providers Name Role Phone Momo Forbes Primary Care Provider Joseph Quintana MD Unavailable Encounter Details Date Type Department Care Team Description 05/03/[address] [facility] Nurse, [facility] Transplant Clinic 9 [place] [address] Social History Tobacco Use Types [...] on filedocumented in this encounter Care Teams Specification Writer Relationship Specialty Start Date End Date Momo Forbes PCP - General Family Practice 01/02/14 [facility] [address] [place] [address] Joseph Quintana, Assigned Nephrology 03/29/21 MD Provider 7 [facility] 353 [facility] [address] [place] [address] documented as of this encounter
--- OUTSIDE RECORDS SUMMARY | 2022-07-05 14:43 | XMS_ITS | Encounter Summary ---
:1950 Author Organization [place] Address [facility] [place] [address] Care Team Providers Name Role Phone Momo Forbes Primary Care Provider Reason for Visit Reason Onset Date Comments Transplant 04/20/2016 refill Encounter Details Date Type Department Care Team Description 04/20/2016 Refill [facility] Joseph Quintana, Transplant (refill) Transplant Clinic [address] [place] [address] 126 [phone] [place], [place] [phone] (Wo rk) Social History Tobacco Use Types [...] documented in this encounter Care Teams Production Clerks Supervisor Relationship Specialty Start Date End Date Momo Forbes PCP - General Family Practice 01/02/14 [facility] [address] [place] [address] documented as of this encounter
--- OUTSIDE RECORDS SUMMARY | 2022-07-05 14:43 | XMS_ITS | Encounter Summary ---
:1950 Author Organization [place] Address [address] [facility] [address] Care Team Providers Name Role Phone Momo Forbes Primary Care Provider Reason for Visit Reason Onset Date Comments Pre Visit Planning - Unable To Reach 10/14/2016 Encounter Details Date Type Department Care Team Description 10/14/2016 Telephone [facility] Anita Joshi MD Pre Visit Planning - Nephrology Clinic [address] [place] [address] [place] ble To Reach [address] [address] [phone] Social History Tobacco Use Types Packs/Day Years Used Date Smoking Tobacco: Former Cigars Quit : 08/22/2006 Smokeless Tobacco: Never Alcohol Use Standard Drinks/Week Comments Yes 0 (1 standard drink = 0.6 oz pure alcoho l) occasional drink. Sex Assigned at Date Recorded Not on file documented as of this encounter Miscellaneous Notes Telephone Encounter - Monroe Zurita OFFICE SUPPORT CLERK - 10/14/2016 10:56 AM CST Ezekiel, this is office from Clinic [facility] at the [facility]. We are calling to remind you of your upcoming Nephrology appointment on 10/25/16 at 440pm. Please arrive about 1 hours prior to your appointment time for labs. Also, please bring an updated medication list or your labeled medication bottles with you to your appointment. If you have any questions or would like to cancel or reschedule your appointment, please call us at [phone]. You are welcome to have your labs done up to a week before your appointment at any [facility] or [facility] facility. If you have your labs completed before your appointment, please still come 30 minutes early for check-in MONROE ZURITA CMA CAL PHYSICS RESEARCHER documented in this encounter Plan of Treatment Not on filedocumented as of this encounter Visit Diagnoses Not on filedocumented in this encounter Care Teams Electrical Technician Instructor Relationship Specialty Start Date End Date Momo Forbes PCP - General Family Practice 01/02/14 [facility] [address] [place] [address] documented as of this encounter
--- OUTSIDE RECORDS SUMMARY | 2022-07-05 14:43 | XMS_ITS | Encounter Summary ---
:1950 Author Organization [place] Address [address] [place] [address] Care Team Providers Name Role Phone Forbes, Ton Primary Care Provider Encounter Details Date Type Department Care Team Description 07/22/2016 Orders Only [facility], Joseph Conor isael, [facility] 500 [facility] [address] [place] [phone] [place] [address] [place] [address] (Wo rk) Social History Tobacco [...] for this MASS SPECTROMETRY PM SENIOR CLINICAL DATA ANALYST procedure are in the results section. documented in this encounter Results (ABNORMAL) Tacrolimus level (08/09/2016 12:15 PM SENIOR CLINICAL DATA ANALYST) [facility] Method Time Signature Tacrolimus Last 08/08/16 [facility] Tacrolimus 3.8 (L) 5.0 - [facility] Level 15.0 ug/L [facility] Comment: Tacrolimus Reference Range Kidney Transplant Pediatric [...] Laterality 08/09/2016 12:15 08/11/2016 PM SENIOR CLINICAL DATA ANALYST 10:15 AM SENIOR CLINICAL DATA ANALYST Deysi Alicea MD LAB - BLOOD ORDERABLES Performing Organization Address City/State/ZIP Code Phon e Number [facility] [address] documented in this encounter Visit Diagnoses Not on filedocumented in this encounter Care Teams Blacksmith Assistant Relationship Specialty Start Date End Date Momo Forbes PCP - General Family Practice 01/02/14 [facility] [address] [place] [id number] documented as of this encounter
--- OUTSIDE RECORDS SUMMARY | 2022-07-05 14:43 | XMS_ITS | Encounter Summary ---
:1950 Author Organization [place] Address [address] [place] [address]. [place] [address] Care Team Providers Name Role Phone Momo Forbes Primary Care Provider Encounter Details Date Type Department Care Team Description 03/23/2017 Orders Only [facility] Rossi, Estefania [place] replaced by Nephrology Clinic transplant (Primary [address] Dx) [address] [place] [phone] Social History Tobacco Use Types Packs/Day Years [...] Primary documented in this encounter Care Teams Project Scheduler Relationship Specialty Start Date End Date Momo Forbes PCP - General Family Practice 01/02/14 [facility] [address] [place] [address] documented as of this encounter
--- OUTSIDE RECORDS SUMMARY | 2022-07-05 14:43 | XMS_ITS | Encounter Summary ---
:1950 Author Organization [place] Address [address] [place] [address] Care Team Providers Name Role Phone Forbes, Momo He Primary Care Provider Reason for Visit Reason Onset Date Comments Transplant Immunosuppression Management 08/13/2016 Encounter Details Date Type Department Care Team Description 08/13/2016 Telephone [facility] Shiva Kahn Transp [facility] [place] Transplant Clinic RN Immunosuppression [address] [place] [address] [phone] [place] [address] [place] [phone] Social History Tobacco Use Types Packs/Day Years [...] Patient will repeat labs in 1-2 weeks. ING EQUIPMENT TENDER Telephone Encounter - Shiva Kahn RN - 08/13/2016 7:42 AM CST Tacrolimus level 3.8 reported as 18-hour level. PLAN: Verify timing of labs tac dose and time of blood draw for tac level. Repeat tac level taking care to get a good 12-hour level (11-13 hours acceptable). TASK: Please call patient with questions and instructions per plan. ING EQUIPMENT TENDER documented in this encounter Plan of Treatment Not on filedocumented as of this encounter Visit Diagnoses Diagnosis Kidney replaced by transplant - Primary Aftercare following organ transplant Encounter for long-term current use of m edication documented in this encounter Care Teams Pca Relationship Specialty Start Date End Date Momo Forbes PCP - General Family Practice 01/02/14 [facility] [address] [place] [address] documented as of this encounter
--- OUTSIDE RECORDS SUMMARY | 2022-07-05 14:43 | XMS_ITS | Encounter Summary ---
:1950 Author Organization [place] Address [address] [place] [address] Care Team Providers Name Role Phone Momo Forbes Primary Care Provider Encounter Details Date Type Department Care Team Description 10/25/2016 Orders Only [facility] Thrombocytopenia (H); [address] [facility] SE Aftercare following organ tr ansplant; 1st Floor Kidney replaced by transplan t; [place], [place] Encounter fo r long-term current use [...] Thrombocytopenia (H) Resu lts for this PM POULTRY HATCHERY LABORER procedure are i n the results section. BASIC METABOLIC Routine 10/25/2016 3:54 Aftercare following Re sults for this PANEL PM POULTRY HATCHERY LABORER organ transplant procedure are in Kidney replaced by the [facility] ts transplant section. Encounter for long-term current use of medication CBC WITH PLATELETS Routine 10/25/2016 3:54 Aftercare following Results for this PM POULTRY HATCHERY LABORER organ transplant procedure are in Kidney replaced by the [facility] ts transplant section. Encounter for long-term current use of medication PROTEIN RANDOM Routine 10/25/2016 3:52 Aftercare following Res ults for this URINE PM POULTRY HATCHERY LABORER organ transplant procedure are in Kidney replaced by the [facility] ts transplant section. Encounter for long-term current use of medication CREATININE URINE Routine 10/25/2016 3:52 Thrombocytopenia (H) Results for this CALCULATION ONLY PM POULTRY HATCHERY LABORER procedure a re in (LAB ONLY) the results section. documented in this encounter Results (ABNORMAL) Basic metabolic panel (10/25/2016 3:54 PM POULTRY HATCHERY LABORER) Patholo gist Method Time Signature Sodium 142 133 - 144 [facility] mmol/L [facility] Potassium 4.2 3.4 - 5.3 [facility] mmol/L [facility] Chloride 108 94 - 109 [facility] mmol/L [facility] Carbon Dioxide 28 20 - 32 [facility] mmol/L [facility] Anion Gap 7 3 - 14 [facility] mmol/L [facility] Glucose 120 (H) 70 - 99 [facility] mg/dL [facility] Urea Nitrogen 19 7 - 30 [facility] mg/dL [facility] Creatinine 1.39 (H) 0.66 - [facility] 1.25 mg/dL [facility] GFR Estimate 51 (L) >60 [facility] mL/min/1.7 [place] m2 [facility] Comment: Non GFR Calc GFR Estimate If Black 62 >60 mL/min/1.7m2 [facility] Comment: GFR Calc Calcium 9.4 8.5 - 10.1 mg/dL [facility] Specimen Anatomical Collection Method Collection Time Receive d Time (Source) Location / / Volume Laterality Blood specimen 10/25/2016 3:54 PM 017 3:55 (specimen) POULTRY HATCHERY LABORER PM POULTRY HATCHERY LABORER Chucho Joshi MD LAB - BLOOD ORDERABLES Performing Organization Address City/State/ZIP Code Phon e Number [address] [address] [facility] (ABNORMAL) CBC with platelets (10/25/2016 3:54 PM POULTRY HATCHERY LABORER) Analysis Performed At Patho logist Time Signature WBC 5.1 4.0 - 11.0 [facility] 10e9/L [facility] RBC Count 5.50 4.4 - 5.9 [facility] 10e12/L [facility] Hemoglobin 15.5 13.3 - [facility] 17.7 g/dL [facility] Hematocrit 46.0 40.0 - [facility] 53.0 % [facility] MCV 84 78 - 100 [facility] fl [facility] MCH 28.2 26.5 - [facility] 33.0 pg [facility] MCHC 33.7 31.5 - [facility] 36.5 g/dL [facility] RDW 14.1 10.0 - [facility] 15.0 % [facility] Platelet Count 124 (L) 150 - 450 [facility] 10e9/L [facility] Specimen Anatomical Collection Method Collection Time Receive d Time (Source) Location / / Volume Laterality Blood specimen 10/25/2016 3:54 PM 017 3:55 (specimen) POULTRY HATCHERY LABORER PM POULTRY HATCHERY LABORER Chucho Joshi MD LAB - BLOOD ORDERABLES Performing Organization Address City/[facility]/ZIP Code Phon e Number [address] [address] [facility] Folate RBC (10/25/2016 3:54 PM POULTRY HATCHERY LABORER) athologist Signature HCT Within 46.0 % [facility] Past 24h [facility] Folate RBC 663 ng/mL [facility] Comment: Reference range: >=366 (Note) Performed by [employer], [address] [place] [id number] [email or web address], Geoff Reed MD, Lab. Director Specimen Anatomical Collection Method Collection Time Receive d Time (Source) Location / / Volume Laterality Blood specimen 10/25/2016 3:54 PM 017 3:55 (specimen) POULTRY HATCHERY LABORER PM POULTRY HATCHERY LABORER Chucho Joshi MD LAB - BLOOD ORDERABLES Performing Organization Address City/State/ZIP Code Phon e Number [address] [address] [facility] Creatinine urine calculation only (10/25/2016 3:52 PM POULTRY HATCHERY LABORER) P athologist Signature Creatinine 152 mg/dL [facility] Specimen Anatomical Collection Method Collection Time Receive d Time (Source) Location / / Volume Laterality 10/25/2016 3:52 PM 7 4:12 POULTRY HATCHERY LABORER PM POULTRY HATCHERY LABORER Chucho Joshi MD LAB - URINE ORDERABLES Performing Organization Address City/State/ZIP Code Phon e Number M [facility] [address] [address] [facility] [address] [place] [address], [place] [phone] (ABNORMAL) Protein random urine (10/25/2016 3:52 PM POULTRY HATCHERY LABORER) Analysis Performed At Patho logist Time Signature Protein Random 0.48 g/L [place] Urine [facility] Protein Total 0.31 (H) 0 - 0.2 [place] Urine g/gr g/g Cr [facility] Specimen Anatomical Collection Method Collection Time Receive d Time (Source) Location / / Volume Laterality Urine specimen 10/25/2016 3:52 PM 017 4:12 (specimen) POULTRY HATCHERY LABORER PM POULTRY HATCHERY LABORER Chucho Joshi MD LAB - URINE ORDERABLES Performing Organization Address City/State/ZIP Code Phon e Number [facility] [address] [address] [facility] [address] [address], [place] [phone] documented in this encounter Visit Diagnoses Diagnosis Thrombocytopenia (H) Thrombocytopenia, unspecified Aftercare following organ transplant Kidney replaced by transplant Encounter for long-term current use of m edication documented in this encounter Care Teams Still Worker Helper Relationship Specialty Start Date End Date Momo Forbes PCP - General Family Practice 01/02/14 [facility] [address] [place] [address] documented as of this encounter
--- OUTSIDE RECORDS SUMMARY | 2022-07-05 14:43 | XMS_ITS | Encounter Summary ---
:1950 Author Organization [place] Address [address] [place] [address] Care Team Providers Name Role Phone Momo Forbes Primary Care Provider Encounter Details Date Type Department Care Team Description 01/19/2017 Orders Only [facility] Loy Morales, Aft ercare following organ transplant; [facility] Kidney replaced by transplant; Laboratory [address] [facility] Encounter for long-term curr ent use of medication [address] [place] [address] [phone] (Wo rk) Social History Tobacco Use Types [...] Results Tacrolimus level (01/19/2017 9:25 AM CDT) [facility] Method Time Signature Tacrolimus Last 0800 [facility] Dose 01/19/17 [facility] Tacrolimus 6.5 5.0 - [facility] 15.0 ug/L [facility] Comment: Tacrolimus Reference [...] its perform ance characteristics determined by the [facility], [...] Organization Address City/State/ZIP Code Phon e Number [address] [address], [facility] documented in this encounter Visit Diagnoses Diagnosis Aftercare following organ transplant Kidney replaced by transplant Encounter for long-term current use of m edication documented in this encounter Care Teams Ice Resurfacing Machine Operators Relationship Specialty Start Date End Date Momo Forbes PCP - General Family Practice 01/02/14 [facility] [address] [place] [address] documented as of this encounter
--- OUTSIDE RECORDS SUMMARY | 2022-07-05 14:43 | XMS_ITS | Encounter Summary ---
:1950 Author Organization [place] Address Replaced by [facility] [place] [address] Care Team Providers Name Role Phone Momo Forbes Primary Care Provider Reason for Visit Reason Onset Date Comments Transplant 05/26/2017 refill Encounter Details Date Type Department Care Team Description 05/26/2017 Refill [facility] Anita Joshi MD Transplant (refill) Nephrology Clinic [address] [place] [address] (Wo rk) [address] [phone] Social History Tobacco Use Types Packs/Day Years [...] documented in this encounter Care Teams Marketing Development Specialist Relationship Specialty Start Date End Date Momo Forbes PCP - General Family Practice 01/02/14 [facility] [address] [place] [address] documented as of this encounter
--- OUTSIDE RECORDS SUMMARY | 2022-07-05 14:43 | XMS_ITS | Encounter Summary ---
:1950 Author Organization [place] Address [facility] [place] [address] Care Team Providers Name Role Phone Momo Forbes Primary Care Provider Reason for Visit Reason Onset Date Comments Transplant 12/02/2016 refill Encounter Details Date Type Department Care Team Description 12/02/[address] [facility] Anita Joshi MD Transplant (refill) Nephrology Clinic [address] [place] [address] (Wo rk) [address] [phone] Social History Tobacco Use Types Packs/Day Years [...] transplant documented in this encounter Care Teams Pelts Skinner Relationship Specialty Start Date End Date Momo Forbes PCP - General Family Practice 01/02/14 [facility] [address] [place] [address] documented as of this encounter
--- OUTSIDE RECORDS SUMMARY | 2022-07-05 14:43 | XMS_ITS | Encounter Summary ---
:1950 Author Organization [place] Address [facility] [place] [address] Care Team Providers Name Role Phone Momo Forbes Primary Care Provider Reason for Visit Reason Onset Date Comments Transplant Pharmacy Medication Review 01/26/2017 Encounter Details Date Type Department Care Team Description 01/26/2017 Telephone [facility] Janes Rodriguez, Transplant Pharmacy [address] [facility] [place] [phone] Social History Tobacco Use Types Packs/Day Years [...] on filedocumented in this encounter Care Teams Boss Miner Relationship Specialty Start Date End Date Momo Forbes PCP - General Family Practice 01/02/14 [facility] [address] [place] [address] documented as of this encounter
--- OUTSIDE RECORDS SUMMARY | 2022-07-05 14:44 | XMS_ITS | Encounter Summary ---
:1950 Author Organization [place] Address [facility] [place] [address] Care Team Providers Name Role Phone Ingrid Santana RN Unavailable Unavailable Momo Forbes Primary Care Provider Encounter Details Date Type Department Care Team Description 10/04/2014 External Order Results The Transplant Ce nter Nurse, [facility] 2nd Floor, Clinic [address] [address] Social History Tobacco Use Types [...] 8:33 AM Results f or this RESULTS TRUCK CATERER procedure are i n the results section. documented in this encounter Results (ABNORMAL) TXP External Lab Result (10/03/2014 8:33 AM TRUCK CATERER) Analysis Performed At Patho logist Time Signature [...] / / Volume Laterality 10/03/2014 8:33 AM TRUCK CATERER Narrative ZACHERYTYLER PFT - 10/04/2014 8:51 AM TRUCK CATERER Verified by Josseline Palma on 5. Patient Reported LABORATORY Performing Organization Address City/State/ZIP Code Phon e Number [facility] LABDE SCAN documented in this encounter Visit Diagnoses Not on filedocumented in this encounter Care Teams Shoes Hand Sewer Relationship Specialty Start Date End Date Momo Forbes PCP - General Family Practice 01/02/14 [facility] [address] [place] [address] Ingrid Santana, RN Registered Nurse Transplant 02/10/12 documented as of this encounter
--- OUTSIDE RECORDS SUMMARY | 2022-07-05 14:44 | XMS_ITS | Encounter Summary ---
:1950 Author Organization [place] Address [facility] [place] [address] Care Team Providers Name Role Phone Ingrid Santana RN Unavailable Unavailable Momo Forbes Primary Care Provider Reason for Visit Reason Onset Date Comments Refill Request 06/23/2015 amlodipine Encounter Details Date Type Department Care Team Description 06/23/2015 Refill [facility] [address] Refill Request Physicians Orsetes Hernandez MD (amlodipine) [facility] Building [place] 4th Floor, Clinic 4B [address] [phone] (Wo rk) [address] [phone] Social History Tobacco Use Types Packs/Day Years [...] 05/13/14 139/73 04/09/14 163/78 [facility] [phone] TECHNICIAN documented in this encounter Plan of Treatment Not on filedocumented as of this encounter Visit Diagnoses Diagnosis HTN (hypertension) - Primary Unspecified essential hypertension documented in this encounter Care Teams Education Site Manager Relationship Specialty Start Date End Date Momo Forbes PCP - General Family Practice 01/02/[address] [address] Ingrid Santana, RN Registered Nurse Transplant 02/10/12 documented as of this encounter
--- OUTSIDE RECORDS SUMMARY | 2022-07-05 14:44 | XMS_ITS | Encounter Summary ---
:1950 Author Organization [place] Address [facility] [place] [address] Care Team Providers Name Role Phone Momo Forbes Primary Care Provider Reason for Visit Reason Onset Date Comments Transplant 02/19/2016 refill Encounter Details Date Type Department Care Team Description 02/19/2016 Refill The Transplant Deysi Burns MD Transplant (refill) 2nd Floor, Clinic [address] [place] [address] [facility] [place] [address] Social History Tobacco Use Types [...] transplant documented in this encounter Care Teams Barn Hand Relationship Specialty Start Date End Date Momo Forbes PCP - General Family Practice 01/02/14 [facility] [address] [place] [address] documented as of this encounter
--- OUTSIDE RECORDS SUMMARY | 2022-07-05 14:44 | XMS_ITS | Encounter Summary ---
:1950 Author Organization [place] Address [facility] [place] [address] Care Team Providers Name Role Phone Ingrid Santana RN Unavailable Unavailable Momo Forbes Primary Care Provider Reason for Referral Consultation - Closed Specialty Diagnoses / Procedures Referred By Contact Refer red To Contact Diagnoses Morbid obesity due to excess calories (H) Deysi Alicea MD [facility] [address] [place] [address] Referral ID Status Reason Start Date Expiration Date Visits Requ ested Visits Authorized [id number] Closed 09/02/2015 09/01/2016 1 1 REWINDER Reason for Visit Reason Comments RECHECK Follow up Kidney TX 4 Encounter Details Date Type Department Care Team Description 09/02/2015 Office Visit Nephrology Deysi Alicea, S/P kidney transplant (Prima ry Dx); 2nd Floor, Clinic 2A Morbid obesity due to excess calories (H ) Tommy Wilburn [address] [place] [id number] [place] [address] (Wo rk) [address] [phone] Social History Tobacco Use Types Packs/Day Years [...] Comments Blood Pressure 128/72 09/02/2015 4:32 PM YARN REWINDER Pulse 61 09/02/2015 4:32 PM YARN REWINDER Temperature 36.7 ??C (98 ??F) 09/02/2015 4:32 PM YARN REWINDER Respiratory Rate - - Oxygen Saturation 94% 09/02/2015 4:32 PM YARN REWINDER Inhaled Oxygen Concentration - - Weight 141.8 kg (312 lb 9.6 oz) 09/02/2015 4:32 PM YARN REWINDER Height 182.9 cm (6' 0.01) 09/02/2015 4:32 PM YARN REWINDER Body Mass Index 42.39 09/02/2015 4:32 PM YARN REWINDER documented in this encounter Progress Notes Deysi [...] discharged on Cumadin; Cumadin was stopped by nurse recruiter during the follow up visit, as he [...] mentation appears normal and affect normal Results: REWINDER documented in this encounter Nursing Notes Teresa [...] oz). BP completed using cuff size: large REWINDER documented in this encounter Plan of Treatment [...] ) documented in this encounter Care Teams Tea Taster Relationship Specialty Start Date End Date Momo Forbes PCP - General Family Practice 01/02/14 [facility] [address] [place] [address] Ingrid Santana, RN Registered Nurse Transplant 02/10/12 documented as of this encounter
--- OUTSIDE RECORDS SUMMARY | 2022-07-05 14:44 | XMS_ITS | Encounter Summary ---
:1950 Author Organization [place] Address [facility] [place] [address] Care Team Providers Name Role Phone Ingrid Santana RN Unavailable Unavailable Momo Forbes Primary Care Provider Encounter Details Date Type Department Care Team Description 10/18/2014 External Order Results The Transplant Ce nter Nurse, [facility] 2nd Floor, Clinic [address]A [address] [address] Social History Tobacco Use Types [...] 8:15 AM Results f or this RESULTS STOCK SPECULATOR procedure are i n the results section. documented in this encounter Results (ABNORMAL) TXP External Lab Result (10/17/2014 8:15 AM STOCK SPECULATOR) Analysis Performed At Patho logist Time Signature [...] 56 (L) >60 LABDE SCAN (if ml/min/1.7 Hungarian) [...] / / Volume Laterality 10/17/2014 8:15 AM STOCK SPECULATOR Narrative JESSICA PFT - 10/18/2014 8:50 AM STOCK SPECULATOR Verified by Maribel Plunkett on 10/18/19 15. Patient Reported LABORATORY Performing Organization Address City/State/ZIP Code Phon e Number [facility]DE SCAN documented in this encounter Visit Diagnoses Not on filedocumented in this encounter Care Teams Sensitometrist Relationship Specialty Start Date End Date Momo Forbes PCP - General Family Practice 01/02/14 [facility] [address] [place] [address] Ingrid Santana, RN Registered Nurse Transplant 02/10/12 documented as of this encounter
--- OUTSIDE RECORDS SUMMARY | 2022-07-05 14:44 | XMS_ITS | Encounter Summary ---
:1950 Author Organization [place] Address [address] [place] [address] Care Team Providers Name Role Phone Ingrid Santana RN Unavailable Unavailable Momo Forbes Primary Care Provider Joseph Quintana MD Unavailable Encounter Details Date Type Department Care Team Description 08/28/2014 External Order Results The Transplant Ce nter Nurse, [facility] 2nd Floor, Clinic [address]A [address] [place] [address] Social History Tobacco Use Types [...] 08/26/2014 10:25 AM Results for this RESULTS REGISTERED RADIATION THERAPIST procedure are i n the results section. documented in this encounter Results (ABNORMAL) TXP External Lab Result (08/26/2014 10:25 AM REGISTERED RADIATION THERAPIST) Analysis Performed At Patho logist Time Signature [...] 58 (L) >60 LABDE SCAN (if ml/min/1.7 Cameroonian) 3m2 (External) GFR Estimated 48 (L) >60 [...] / / Volume Laterality 08/26/2014 10:25 AM REGISTERED RADIATION THERAPIST Narrative [facility] - 08/28/2014 4:34 PM REGISTERED RADIATION THERAPIST Verified by Freddy Mehta on 08/28. Patient Reported LABORATORY Performing Organization Address City/State/ZIP Code Phon e Number [facility]DE SCAN documented in this encounter Visit Diagnoses Not on filedocumented in this encounter Care Teams Application Specialist Relationship Specialty Start Date End Date Momo Forbes PCP - General Family Practice 01/02/14 [facility] [address] [place] [address] Ingrid Santana, RN Registered Nurse Transplant 02/10/12 Joseph Quintana, Assigned Nephrology 03/29/21 MD Provider [address] [facility] 353 [facility] [address] [place] [address] documented as of this encounter
--- OUTSIDE RECORDS SUMMARY | 2022-07-05 14:44 | XMS_ITS | Encounter Summary ---
:1950 Author Organization [place] Address [address] [place] [address] Care Team Providers Name Role Phone Ingrid Santana RN Unavailable Unavailable Momo Forbes Primary Care Provider Encounter Details Date Type Department Care Team Description 12/20/2014 Orders Only [facility], [facility] [place] [address] [phone] [place] [address] [address] [place] [address] (Wo rk) Social History Tobacco [...] Results Tacrolimus level (12/25/2014 9:45 AM CDT) [facility] Method Time Signature Tacrolimus Last 12/24/14 [facility] Dose [address] [facility] Tacrolimus 9.5 5.0 - [facility] Level [...] e Number [facility] [address] documented in this encounter Visit Diagnoses Not on filedocumented in this encounter Care Teams Clinical Trial Head Relationship Specialty Start Date End Date Momo Forbes PCP - General Family Practice 01/02/14 [place] [id number] Ingrid Santana, RN Registered Nurse Transplant 02/10/12 documented as of this encounter
--- OUTSIDE RECORDS SUMMARY | 2022-07-05 14:44 | XMS_ITS | Encounter Summary ---
:1950 Author Organization [place] Address [facility] [place] [address] Care Team Providers Name Role Phone Momo Forbes Primary Care Provider Reason for Visit Reason Onset Date Comments Transplant Pharmacy Medication Review 02/05/2016 Encounter Details Date Type Department Care Team Description 02/05/2016 Telephone [facility] Nani Humphrey, [facility] Transplant Pharmacy 500 [facility] [place] [address] [place] [phone] [place] [address] (Wo rk) Social History Tobacco Use Types [...] filedocumented in this encounter Care Teams Campus Receptionist Relationship Specialty Start Date End Date Momo Forbes PCP - General Family Practice 01/02/14 [facility] [address] [place] [address] documented as of this encounter
--- OUTSIDE RECORDS SUMMARY | 2022-07-05 14:44 | XMS_ITS | Encounter Summary ---
:1950 Author Organization [place] Address [address] [place] [address]. [place] [address] Care Team Providers Name Role Phone Momo Forbes Primary Care Provider Reason for Visit Reason Onset Date Comments Transplant 02/06/2016 refill Encounter Details Date Type Department Care Team Description 02/06/2016 Refill [facility] Cristy Chen LPN T ransplant (refill) Transplant Clinic [address] [place] [address] [phone] Social History Tobacco Use Types Packs/Day [...] transplant documented in this encounter Care Teams Tape Maker Relationship Specialty Start Date End Date Momo Forbes PCP - General Family Practice 01/02/14 [facility] [address] [place] [address] documented as of this encounter
--- OUTSIDE RECORDS SUMMARY | 2022-07-05 14:44 | XMS_ITS | Encounter Summary ---
:1950 Author Organization [place] Address [address] [place] [address]. [place] [address] Care Team Providers Name Role Phone Momo Forbes Primary Care Provider Reason for Visit Reason Onset Date Comments Transplant 03/15/2016 refill Encounter Details Date Type Department Care Team Description 03/15/2016 Refill [facility] Cristy Chen LPN T ransplant (refill) Transplant Clinic [address] [place] [address] [phone] Social History Tobacco Use Types Packs/Day [...] transplant documented in this encounter Care Teams Irrigator Relationship Specialty Start Date End Date Momo Forbes PCP - General Family Practice 01/02/14 [facility] [address] [place] [address] documented as of this encounter
--- OUTSIDE RECORDS SUMMARY | 2022-07-05 14:44 | XMS_ITS | Encounter Summary ---
:1950 Author Organization [place] Address [address] [place] [address] Care Team Providers Name Role Phone Forbes, Ton Primary Care Provider Encounter Details Date Type Department Care Team Description 02/20/2016 Orders Only [facility], Joseph Conor isael, [facility] 500 [facility] [address] [place] [address] [phone] [place] [address] [place] [address] (Wo rk) Social History Tobacco [...] (ABNORMAL) Tacrolimus level (03/17/2016 10:44 AM CDT) [facility] Method Time Signature Tacrolimus Last 2100 [facility] Dose 03/16/16 [facility] Tacrolimus 4.2 (L) 5.0 - UNIVERSITY [...] ance characteristics determined by the [facility], ??Special Chemistry Laboratory. It [...] Phon e Number [facility] [address] documented in this encounter Visit Diagnoses Not on filedocumented in this encounter Care Teams Mine Car Mechanic Relationship Specialty Start Date End Date Momo Forbes PCP - General Family Practice 01/02/14 [facility] [address] [place] [phone] documented as of this encounter
--- OUTSIDE RECORDS SUMMARY | 2022-07-05 14:44 | XMS_ITS | Encounter Summary ---
:1950 Author Organization [place] Address [address] [place] [address] Care Team Providers Name Role Phone Ingrid Santana RN Unavailable Unavailable Momo Forbes Primary Care Provider Reason for Visit Reason Onset Date Comments Refill Request 09/06/2014 [facility] Encounter Details Date Type Department Care Team Description 09/06/2014 Refill The Transplant Deysi Burns, Refill Request (Dok 2nd Floor, Clinic 2A MD Plus) Tommy Wilburn [phone] [place] [address] [place] [address] Social History Tobacco Use Types [...] Fill Date: 02/08/14 Quantity: 100 Michael Manuel [facility] [phone] STICS OFFICER documented in this encounter Plan of Treatment Not on filedocumented as of this encounter Visit Diagnoses Diagnosis S/P kidney transplant - Primary Kidney replaced by transplant documented in this encounter Care Teams Pizza Cook Relationship Specialty Start Date End Date Momo Forbes PCP - General Family Practice 01/02/14 [place] [phone] Ingrid Santana, RN Registered Nurse Transplant 02/10/12 documented as of this encounter
--- OUTSIDE RECORDS SUMMARY | 2022-07-05 14:44 | XMS_ITS | Encounter Summary ---
:1950 Author Organization [place] Address [address] [place] [address] Care Team Providers Name Role Phone Ingrid Santana RN Unavailable Unavailable Momo Forbes Primary Care Provider Encounter Details Date Type Department Care Team Description 10/20/2014 Orders Only [facility], Joseph Conor [facility], [facility] [place] [address] [phone] [place] [address] 438 [place] [address] (Wo rk) Social History Tobacco [...] Results Tacrolimus level (11/05/2014 8:29 AM CDT) [facility] Method Time Signature Tacrolimus Last 2029, [facility] Dose 11/04/14 [facility] Tacrolimus 7.7 5.0 - [facility] Level 15.0 ug/L [facility] Comment: Tacrolimus Reference Range Kidney Transplant [...] e Number [facility] [address] documented in this encounter Visit Diagnoses Not on filedocumented in this encounter Care Teams Hand Counter Relationship Specialty Start Date End Date Momo Forbes PCP - General Family Practice 01/02/14 [place] [phone] Ingrid Santana, RN Registered Nurse Transplant 02/10/12 documented as of this encounter
--- OUTSIDE RECORDS SUMMARY | 2022-07-05 14:44 | XMS_ITS | Encounter Summary ---
:1950 Author Organization [place] Address [address] [place] [address] Care Team Providers Name Role Phone Ingrid Santana RN Unavailable Unavailable Momo Forbes Primary Care Provider Encounter Details Date Type Department Care Team Description 08/22/2014 Orders Only [facility], Joseph Conor [facility] j[facility] [place] 500 [facility] [address] [place] [address] [phone] [place] [address] 810 [place] [address] (Wo rk) Social History Tobacco [...] Res ults for this MASS SPECTROMETRY AM DIRECTOR OF PSYCHIATRY procedure are in the results section. documented in this encounter Results Tacrolimus level (08/26/2014 10:21 AM DIRECTOR OF PSYCHIATRY) [facility] Method Time Signature Tacrolimus Last 08/25/14 [facility] Dose 2030 [facility] Tacrolimus 6.6 5.0 - UNIVERSITY [...] / Volume Laterality 08/26/2014 10:21 08/28/2014 AM DIRECTOR OF PSYCHIATRY 11:34 AM DIRECTOR OF PSYCHIATRY Mingo Dangelo MD LAB - BLOOD ORDERABLES Performing Organization Address City/State/ZIP Code Phon e Number [facility] [address] documented in this encounter Visit Diagnoses Not on filedocumented in this encounter Care Teams Behavioral Health Aide Relationship Specialty Start Date End Date Momo Forbes PCP - General Family Practice 01/02/14 [facility] [address] [place] [address] Ingrid Santana, RN Registered Nurse Transplant 02/10/12 documented as of this encounter
--- OUTSIDE RECORDS SUMMARY | 2022-07-05 14:44 | XMS_ITS | Encounter Summary ---
:1950 Author Organization [place] Address [facility] [place] [address] Care Team Providers Name Role Phone Ingrid Santana RN Unavailable Unavailable Momo Forbes Primary Care Provider Reason for Visit Reason Onset Date Comments Refill Request 04/21/2015 crestor Encounter Details Date Type Department Care Team Description 04/21/2015 Refill [facility] [address] Refill Request Physicians Orestes Hernandez MD (crestor) [facility] Building EMPORIUM 4th Floor, Clinic 4B [address] [place] [phone] [place] [address] (Wo rk) [address] [phone] Social History Tobacco Use Types Packs/Day Years [...] # refills: 11 Last Office Visit with [facility] primary care provider: 05/14/14 CHOL 126 02/06/2014 HDL 35 02/06/2014 LDL 71 02/06/2014 TRIG 100 02/06/2014 CHOLHDLRATIO 3.6 02/06/2014 Gayathri Orta [facility] [address] [facility] [address] documented in this encounter Plan of Treatment Not on filedocumented as of this encounter Visit Diagnoses Diagnosis DM (diabetes mellitus), type 2 (H) - Ana ashley Type II or unspecified type diabetes aung litus without mention of complication, not stated as uncontrolled Other and unspecified hyperlipidemia documented in this encounter Care Teams It Solutions Architect Relationship Specialty Start Date End Date Momo Forbes PCP - General Family Practice 01/02/[address] [address] Ingrid Santana, RN Registered Nurse Transplant 02/10/12 documented as of this encounter
--- OUTSIDE RECORDS SUMMARY | 2022-07-05 14:44 | XMS_ITS | Encounter Summary ---
:1950 Author Organization [place] Address [address] [place] [address] Care Team Providers Name Role Phone Momo Forbes Primary Care Provider Joseph Quintana MD Unavailable Encounter Details Date Type Department Care Team Description 03/18/2016 External Order Results [facility] Nurse, [facility] Transplant Clinic [address] [place] [address] Social History Tobacco Use Types [...] External Lab Result (03/17/2016 10:45 AM CDT) [facility] Method Time Signature Sodium (External) 139 [...] filedocumented in this encounter Care Teams Steel Turner Relationship Specialty Start Date End Date Momo Forbes PCP - General Family Practice 5/14/14 [facility] 1999 [place] [address] Joseph Quintana, Assigned Nephrology 03/29/21 MD Provider [address] [place] [address] [address] [place] [address] documented as of this encounter
--- OUTSIDE RECORDS SUMMARY | 2022-07-05 14:44 | XMS_ITS | Encounter Summary ---
:1950 Author Organization [place] Address [address] [place] [address] Care Team Providers Name Role Phone Ingrid Santana RN Unavailable Unavailable Momo Forbes Primary Care Provider Reason for Visit Reason Onset Date Comments Medication Question 09/12/2014 Encounter Details Date Type Department Care Team Description 09/12/2014 Telephone PHARMACY Beny Staton Geovanni Medication Question 500 [facility] [place] [address] PHARMACY [phone] [place] [address] Social History Tobacco Use [...] his dr told himhis bp was good. HANDLER documented in this encounter Plan of Treatment Not on filedocumented as of this encounter Visit Diagnoses Not on filedocumented in this encounter Care Teams Cost And Risk Analysis Manager Relationship Specialty Start Date End Date Momo Forbes PCP - General Family Practice 01/02/14 [facility] 1999 [place] [address] Ingrid Santana, RN Registered Nurse Transplant 02/10/12 documented as of this encounter
--- OUTSIDE RECORDS SUMMARY | 2022-07-05 14:44 | XMS_ITS | Encounter Summary ---
:1950 Author Organization [place] Address [address] [place] [address] Care Team Providers Name Role Phone Ingrid Santana RN Unavailable Unavailable Momo Forbes Primary Care Provider Joseph Quintana MD Unavailable Encounter Details Date Type Department Care Team Description 02/03/2015 External Order Results The Transplant Ce nter Nurse, [facility] 2nd Floor, Clinic [address]A [address] [address] Social History Tobacco Use [...] External Lab Result (01/28/2015 8:56 AM CDT) [facility] Method Time Signature Sodium (External) 140 [...] on filedocumented in this encounter Care Teams Biogeographer Relationship Specialty Start Date End Date Momo Forbes PCP - General Family Practice 01/02/14 [facility] 2000 [place] [address] Ingrid Santana, RN Registered Nurse Transplant 02/10/12 Joseph Quintana, Assigned Nephrology 03/29/21 MD Provider [address] [place] [address] 1932 [place] [address] documented as of this encounter
--- OUTSIDE RECORDS SUMMARY | 2022-07-05 14:44 | XMS_ITS | Encounter Summary ---
:1950 Author Organization [place] Address [address] [place] [address] Care Team Providers Name Role Phone Ingrid Santana RN Unavailable Unavailable Momo Forbes Primary Care Provider Encounter Details Date Type Department Care Team Description 12/30/2014 Orders Only The Transplant Shiva Arias, RN -donor kidney 2nd Floor, Clinic 2A [facility] transplant recipient Tommy Guillermoteen 420 [facility] (Primary Dx) Building [address] [place] [address] [place] [address] Social History Tobacco Use Types [...] transplant documented in this encounter Care Teams Alligator Shear Operator Relationship Specialty Start Date End Date Momo Forbes PCP - General Family Practice 01/02/14 [facility] [address] [place] [phone] Ingrid Santana, RN Registered Nurse Transplant 02/10/12 documented as of this encounter
--- OUTSIDE RECORDS SUMMARY | 2022-07-05 14:44 | XMS_ITS | Encounter Summary ---
:1950 Author Organization [place] Address [address] [place] [address]. [place] [address] Care Team Providers Name Role Phone Ingrid Santana RN Unavailable Unavailable Momo Forbes Primary Care Provider Encounter Details Date Type Department Care Team Description 08/29/2015 Orders Only The Transplant Deepa [facility] Aftercare following organ tr ansplant (Primary Dx); 2nd Floor, Clinic 2A Saima Kidney replaced by transplan t; [facility] current use of medication [address] [phone] Social History Tobacco Use Types Packs/Day Years [...] edication documented in this encounter Care Teams Second Hand Paper Machine Relationship Specialty Start Date End Date Momo Forbes PCP - General Family Practice 01/02/14 [facility] 1999 [place] [address] Ingrid Santana RN Registered Nurse Transplant 02/10/12 documented as of this encounter
--- OUTSIDE RECORDS SUMMARY | 2022-07-05 14:44 | XMS_ITS | Encounter Summary ---
:1950 Author Organization [place] Address [facility] [place] [address] Care Team Providers Name Role Phone Ingrid Santana RN Unavailable Unavailable Momo Forbes Primary Care Provider Reason for Visit Reason Onset Date Comments Transplant 12/31/2014 Encounter Details Date Type Department Care Team Description 12/31/2014 Telephone [facility] Transplant Ankita Ordo[facility]ez Transplant Clinic [address] [place] [phone] Social History Tobacco Use Types [...] on filedocumented in this encounter Care Teams Solid Waste Landfill Technician Relationship Specialty Start Date End Date Momo Forbes PCP - General Family Practice 01/02/14 [facility] 1999 [place] [address] Ingrid Santana RN Registered Nurse Transplant 02/10/12 documented as of this encounter
--- OUTSIDE RECORDS SUMMARY | 2022-07-05 14:44 | XMS_ITS | Encounter Summary ---
:1950 Author Organization [place] Address [facility] [place] [address] Care Team Providers Name Role Phone Ingrid Santana RN Unavailable Unavailable Momo Forbes Primary Care Provider Encounter Details Date Type Department Care Team Description 12/27/2014 External Order Results The Transplant Ce nter Nurse, [facility] 2nd Floor, Clinic 2A [address] [phone] Social History Tobacco Use Types [...] External Lab Result (12/25/2014 9:48 AM CDT) [facility] Method Time Signature Sodium 138 135 [...] 51 (L) >60 LABDE SCAN (if ml/min/1. Micronesian) 73m2 (External) GFR Estimated 42 (L) >60 [...] filedocumented in this encounter Care Teams District Representative Relationship Specialty Start Date End Date Momo Forbes PCP - General Family Practice 01/02/14 [facility] 1999 [place] [address] Ingrid Santana, RN Registered Nurse Transplant 02/10/12 documented as of this encounter
--- OUTSIDE RECORDS SUMMARY | 2022-07-05 14:44 | XMS_ITS | Encounter Summary ---
:1950 Author Organization [place] Address [address] [place] [address] Care Team Providers Name Role Phone Ingrid Santana RN Unavailable Unavailable Momo Forbes Primary Care Provider Joseph Quintana MD Unavailable Encounter Details Date Type Department Care Team Description 08/14/2015 External Order Results The Transplant Ce nter Nurse, [facility] 2nd Floor, Clinic 2A [address] [phone] Social History Tobacco Use [...] 4:41 PM Results f or this RESULTS BUSINESS SERVICES REPRESENTATIVE procedure are i n the results section. documented in this encounter Results (ABNORMAL) TXP External Lab Result (08/12/2015 4:41 PM BUSINESS SERVICES REPRESENTATIVE) Analysis Performed At Patho logist Time [...] 59 (L) >60 LABDE SCAN (if mL/min/1.7 Irish) 3/m2 (External) GFR Estimated 48 (L) >60 [...] / / Volume Laterality 08/12/2015 4:41 PM BUSINESS SERVICES REPRESENTATIVE Narrative JESSICA [facility] - 08/14/2015 9:25 AM BUSINESS SERVICES REPRESENTATIVE Verified by Freddy Mehta on 08/14. Patient Reported LABORATORY Performing Organization Address City/State/ZIP Code Phon e Number [facility] documented in this encounter Visit Diagnoses Not on filedocumented in this encounter Care Teams Equipment Mechanic Relationship Specialty Start Date End Date Momo Forbes PCP - General Family Practice 01/02/14 [facility] 1999 [place] [address] Ingrid Santana, RN Registered Nurse Transplant 02/10/12 Joseph Quintana, Assigned Nephrology 03/29/21 MD Provider [address] [place] [address] 1932 [place] [address] documented as of this encounter
--- OUTSIDE RECORDS SUMMARY | 2022-07-05 14:44 | XMS_ITS | Encounter Summary ---
:1950 Author Organization [place] Address [facility] [place] [address] Care Team Providers Name Role Phone Momo Forbes Primary Care Provider Reason for Visit Reason Onset Date Comments Transplant 02/19/2016 refill Encounter Details Date Type Department Care Team Description 02/19/2016 Refill The Transplant Deysi Burns MD Transplant (refill) 2nd Floor, Clinic 2A [address] [place] [address] [facility] [place] [address] Social History Tobacco Use Types [...] documented in this encounter Care Teams Rn Angiography Relationship Specialty Start Date End Date Momo Forbes PCP - General Family Practice 01/02/14 [facility] 1999 [place] [address] documented as of this encounter
--- OUTSIDE RECORDS SUMMARY | 2022-07-05 14:44 | XMS_ITS | Encounter Summary ---
:1950 Author Organization [place] Address [address] [place] [address] Care Team Providers Name Role Phone Ingrid Santana RN Unavailable Unavailable Momo Forbes Primary Care Provider Reason for Visit Reason Onset Date Comments Medication Question 01/17/2015 Encounter Details Date Type Department Care Team Description 01/17/2015 Telephone PHARMACY Beny Staton Geovanni Medication Question 500 [facility] [address] PHARMACY [phone] [place] [address] Social History Tobacco Use Types [...] keep better tabs. His last to in [employer] were good but that was 8 months ago. Beny Staton [facility] Specialty Pharmacist [phone] documented in this encounter Plan of Treatment Not on filedocumented as of this encounter Visit Diagnoses Not on filedocumented in this encounter Care Teams Tele Marketing Executive Relationship Specialty Start Date End Date Momo Forbes PCP - General Family Practice 01/02/14 [facility] 1999 [place] [address] Ingrid Santana, RN Registered Nurse Transplant 02/10/12 documented as of this encounter
--- OUTSIDE RECORDS SUMMARY | 2022-07-05 14:44 | XMS_ITS | Encounter Summary ---
:1950 Author Organization [place] Address [address] [place] [address] Care Team Providers Name Role Phone Ingrid Santana RN Unavailable Unavailable Momo Forbes Primary Care Provider Encounter Details Date Type Department Care Team Description 07/22/2015 Orders Only [facility] Dereck Dangelo MD [facility] Laborato ry 420 [facility] 195 500 [place], [place] [phone] [place] [address] [phone] Social History Tobacco Use Types Packs/Day Years [...] PM R esults for this MASS SPECTROMETRY GROWTH MEDIA MIXER MUSHROOM procedure are in the results section. documented in this encounter Results Tacrolimus level (08/12/2015 4:35 PM GROWTH MEDIA MIXER MUSHROOM) [facility] Method Time Signature Tacrolimus Last 0700 [facility] Dose 08/12/15 [facility] Tacrolimus 5.3 5.0 - [facility] Level 15.0 ug/L [facility] Comment: Tacrolimus Reference Range Kidney [...] Laterality 08/12/2015 4:35 PM 08/18/ 5 9:11 GROWTH MEDIA MIXER MUSHROOM AM GROWTH MEDIA MIXER MUSHROOM Mingo Dangelo MD LAB - BLOOD ORDERABLES Performing Organization Address City/State/ZIP Code Phon e Number [facility] [address] documented in this encounter Visit Diagnoses Not on filedocumented in this encounter Care Teams Deck Mate Relationship Specialty Start Date End Date Momo Forbes PCP - General Family Practice 01/02/14 [facility] 1999 [place] [address] Ingrid Santana, RN Registered Nurse Transplant 02/10/12 documented as of this encounter
--- OUTSIDE RECORDS SUMMARY | 2022-07-05 14:44 | XMS_ITS | Encounter Summary ---
:1950 Author Organization [place] Address [facility] [address] Care Team Providers Name Role Phone Ingrid Santana RN Unavailable Unavailable Momo Forbes Primary Care Provider Reason for Visit Reason Onset Date Comments Patient Reminder 08/28/2015 Encounter Details Date Type Department Care Team Description 08/28/2015 Telephone Nephrology Yesenia Clements LPN Patient Reminder 2nd Floor, Clinic 2A [place] [phone] Social History Tobacco Use Types Packs/Day [...] Patient confirmed and understood. Yesenia Clements CMA CONDUCTOR TECHNICIAN documented in this encounter Plan of Treatment Not on filedocumented as of this encounter Visit Diagnoses Not on filedocumented in this encounter Care Teams Windows Admin Relationship Specialty Start Date End Date Momo Forbes PCP - General Family Practice 01/02/14 [facility] 1999 [place] [address] Ingrid Santana, RN Registered Nurse Transplant 02/10/12 documented as of this encounter
--- OUTSIDE RECORDS SUMMARY | 2022-07-05 14:44 | XMS_ITS | Encounter Summary ---
:1950 Author Organization [place] Address [address] [place] [address] Care Team Providers Name Role Phone Ingrid Santana RN Unavailable Unavailable Momo Forbes Primary Care Provider Encounter Details Date Type Department Care Team Description 09/22/2014 Orders Only [facility] [place] [address] [phone] [place] [address] 008 [place] [address] (Wo rk) Social History Tobacco [...] AM R esults for this MASS SPECTROMETRY BEEKEEPER procedure are in the results section. TACROLIMUS BY TANDEM Routine 10/03/2014 8:30 AM R esults for this MASS SPECTROMETRY BEEKEEPER procedure are in the results section. documented in this encounter Results Tacrolimus level (10/17/2014 8:15 AM BEEKEEPER) [facility] Method Time Signature Tacrolimus Last 2029 [facility] Dose 10/16/14 [facility] Tacrolimus 9.2 5.0 - [facility] [...] its perform ance characteristics determined by the [facility], ??Special Chemistry Laboratory. It has not been cleared or approved by the FDA . The laboratory is regulated under CLIA as qualified to perform high-complexity testing. This test is used for clinical purposes. It should not be regarded as investigational or for research. Specimen Anatomical Collection Method Collection Time Receive d Time (Source) Location / / Volume Laterality 10/17/2014 8:15 AM 5 BEEKEEPER 11:17 AM BEEKEEPER Mingo Dangelo MD LAB - BLOOD ORDERABLES Performing Organization Address City/State/ZIP Code Phon e Number [facility] 500 [place], [place] [phone] [place] [address] Tacrolimus level (10/03/2014 8:30 AM BEEKEEPER) [facility] Method Time Signature Tacrolimus Last 10/02/14 [facility] Dose 2030 [facility] Tacrolimus 7.4 5.0 - [facility] 15.0 ug/L [facility] Comment: Tacrolimus Reference [...] its perform ance characteristics determined by the [facility], ??Special Chemistry Laboratory. It has not been cleared or approved by the FDA . The laboratory is regulated under CLIA as qualified to perform high-complexity testing. This test is used for clinical purposes. It should not be regarded as investigational or for research. Specimen Anatomical Collection Method Collection Time Receive d Time (Source) Location / / Volume Laterality 10/03/2014 8:30 AM 5 BEEKEEPER 11:09 AM BEEKEEPER Mingo Dangelo MD LAB - BLOOD ORDERABLES Performing Organization Address City/State/ZIP Code Phon e Number [facility] 500 [place], [place] [phone] [place] [address] documented in this encounter Visit Diagnoses Not on filedocumented in this encounter Care Teams Timber Management Assistant Relationship Specialty Start Date End Date Momo Forbes PCP - General Family Practice 01/02/14 [facility] 1999 [place] [address] Ingrid Santana, RN Registered Nurse Transplant 02/10/12 documented as of this encounter
--- OUTSIDE RECORDS SUMMARY | 2022-07-05 14:44 | XMS_ITS | Encounter Summary ---
:1950 Author Organization [place] Address [address] [place] [address] Care Team Providers Name Role Phone Ingrid Santana RN Unavailable Unavailable Momo Forbes Primary Care Provider Joseph Quintana MD Unavailable Encounter Details Date Type Department Care Team Description 11/07/2014 External Order Results The Transplant Ce nter Nurse, [facility] 2nd Floor, Clinic [address] [address] Social History Tobacco Use [...] Estimated >60 >60 LABDE SCAN (if ml/min/1.7 [place] Citizen) 3m2 (External) GFR Estimated 51 (L) >60 [...] filedocumented in this encounter Care Teams Knowledge Manager Relationship Specialty Start Date End Date Momo Forbes PCP - General Family Practice 01/02/14 [place] [address] Ingrid Santana, RN Registered Nurse Transplant 02/10/12 Joseph Quintana, Assigned Nephrology 03/29/21 MD Provider [address] [place] [address] [phone] documented as of this encounter
--- OUTSIDE RECORDS SUMMARY | 2022-07-05 14:44 | XMS_ITS | Encounter Summary ---
:1950 Author Organization [place] Address [address] [place] [address] Care Team Providers Name Role Phone Ingrid Santana RN Unavailable Unavailable Momo Forbes Primary Care Provider Reason for Visit Reason Onset Date Comments Refill Request 02/10/2015 mycophenolate, smz/t mp Encounter Details Date Type Department Care Team Description 02/10/2015 Refill The Transplant Deysi Burns, Refill Request 2nd Floor, Clinic 2A MD (mycophenolate, Sanders Wangen[facility] smz/tmp) Building [address] [place] [phone] [place] [address] [place] [address] Social History Tobacco Use Types [...] Fill Date: 01/09/15 Last Fill Quantity: 240 Smz/[id number] Last Fill Date: 01/09/15 Last Fill Quantity: 31 Gayathri Orta [facility] [address] [facility] [address] documented in this encounter Plan of Treatment Not on filedocumented as of this encounter Visit Diagnoses Diagnosis S/P kidney transplant - Primary Kidney replaced by transplant documented in this encounter Care Teams Projector Booth Operator Relationship Specialty Start Date End Date Momo Forbes PCP - General Family Practice 01/02/[address] [address] Ingrid Santana, RN Registered Nurse Transplant 02/10/12 documented as of this encounter
--- OUTSIDE RECORDS SUMMARY | 2022-07-05 14:44 | XMS_ITS | Encounter Summary ---
:1950 Author Organization [place] Address [facility] [place] [address] Care Team Providers Name Role Phone Momo Forbes Primary Care Provider Reason for Visit Reason Onset Date Comments Transplant 01/16/2016 refill Encounter Details Date Type Department Care Team Description 01/16/2016 Refill The Transplant Deysi Burns MD Transplant (refill) 2nd Floor, Clinic [address] [place] [address] [facility] [place] [address] Social History Tobacco Use Types [...] transplant documented in this encounter Care Teams Focusing Machine Operator Relationship Specialty Start Date End Date Momo Forbes PCP - General Family Practice 01/02/14 [facility] [address] [place] [address] documented as of this encounter
--- OUTSIDE RECORDS SUMMARY | 2022-07-05 14:44 | XMS_ITS | Encounter Summary ---
:1950 Author Organization [place] Address [address] [place] [address] Care Team Providers Name Role Phone Ingrid Santana RN Unavailable Unavailable Momo Forbes Primary Care Provider Reason for Visit Reason Onset Date Comments Medication Question 10/11/2014 Encounter Details Date Type Department Care Team Description 10/11/2014 Telephone PHARMACY Beny Staton Geovanni Medication Question 500 [facility] [place] [address] PHARMACY [phone] [place] [address] Social History Tobacco Use Types [...] is 8 months post-transplant. Medication adherence plan: ABPathfinderd pillbox Are you having any issues managing [...] activity before he checks it. Beny Staton [facility] Specialty Pharmacist [phone] MIC BALANCER SET UP WORKER documented in this encounter Plan of Treatment Not on filedocumented as of this encounter Visit Diagnoses Not on filedocumented in this encounter Care Teams Pre Certification Specialist Relationship Specialty Start Date End Date Momo Forbes PCP - General Family Practice 01/02/14 [place] [phone] Ingrid Santana, RN Registered Nurse Transplant 02/10/12 documented as of this encounter
--- OUTSIDE RECORDS SUMMARY | 2022-07-05 14:45 | XMS_ITS | Encounter Summary ---
:1950 Author Organization [place] Address [address] [place] [address] Care Team Providers Name Role Phone Ingrid Santana RN Unavailable Unavailable Momo Forbes Primary Care Provider Reason for Visit Reason Onset Date Comments Medication Question 07/26/2014 Encounter Details Date Type Department Care Team Description 07/26/2014 Telephone PHARMACY Duncan, Fina, RPH Medication Question 500 [facility] [place] [address] 714 [facility] [phone] [place] [address] Social History Tobacco Use Types [...] well healthy and happy Beny Staton [facility] Specialty Pharmacist [phone] GENCY REGISTRAR documented in this encounter Plan of Treatment Not on filedocumented as of this encounter Visit Diagnoses Not on filedocumented in this encounter Care Teams Verification Rep Relationship Specialty Start Date End Date Momo Forbes PCP - General Family Practice 01/02/14 [facility] [address] [place] [address] Ingrid Santana, RN Registered Nurse Transplant 02/10/12 documented as of this encounter
--- OUTSIDE RECORDS SUMMARY | 2022-07-05 14:45 | XMS_ITS | Encounter Summary ---
:1950 Author Organization [place] Address [address] [place] [address] Care Team Providers Name Role Phone Ingrid Santana RN Unavailable Unavailable Momo Forbes Primary Care Provider Encounter Details Date Type Department Care Team Description 06/22/2014 Orders Only [facility], [facility] [place] [address] [phone] [place] [address] [address] [place] [address] (Wo rk) Social History Tobacco [...] AM R esults for this MASS SPECTROMETRY FLATWARE MAKER procedure are in the results section. TACROLIMUS BY TANDEM Routine 07/08/2014 8:15 AM R esults for this MASS SPECTROMETRY FLATWARE MAKER procedure are in the results section. TACROLIMUS BY TANDEM Routine 07/01/2014 8:25 AM R esults for this MASS SPECTROMETRY FLATWARE MAKER procedure are in the results section. TACROLIMUS BY TANDEM Routine 06/24/2014 8:30 AM R esults for this MASS SPECTROMETRY FLATWARE MAKER procedure are in the results section. documented in this encounter Results Tacrolimus level (07/15/2014 8:25 AM FLATWARE MAKER) [facility] gist Method Time Signature Tacrolimus Last 07/14/14 [facility] Dose 2000 [facility] Tacrolimus 8.1 5.0 - [facility] [...] / Volume Laterality 07/15/2014 8:25 AM 4 FLATWARE MAKER 10:56 AM FLATWARE MAKER Deysi Alicea MD LAB - BLOOD ORDERABLES Performing Organization Address City/State/ZIP Code Phon e Number [facility] [address] [place] [address] [facility] Tacrolimus level (07/08/2014 8:15 AM FLATWARE MAKER) [facility] gist Method Time Signature Tacrolimus Last 2000 [facility] Dose 07/07/14 [facility] Tacrolimus 8.6 5.0 - [facility] [...] / Volume Laterality 07/08/2014 8:15 AM 4 FLATWARE MAKER 11:03 AM FLATWARE MAKER Deysi Alicea MD LAB - BLOOD ORDERABLES Performing Organization Address City/State/ZIP Code Phon e Number [facility] [address] [place] [address] [facility] Tacrolimus level (07/01/2014 8:25 AM FLATWARE MAKER) [facility] gist Method Time Signature Tacrolimus Last 1999, [facility] Dose 06/30/14 [facility] Tacrolimus 9.3 5.0 - [facility] Level 15.0 ug/L [facility] Comment: Tacrolimus Reference Range Kidney Transplant [...] / Volume Laterality 07/01/2014 8:25 AM 4 FLATWARE MAKER 12:11 PM FLATWARE MAKER Mingo Dangelo MD LAB - BLOOD ORDERABLES Performing Organization Address City/State/ZIP Code Phon e Number [facility] [address] [place] [address] [facility] Tacrolimus level (06/24/2014 8:30 AM FLATWARE MAKER) [facility] gist Method Time Signature Tacrolimus Last 1999 [facility] Dose 06/23/14 [facility] Tacrolimus 10.5 5.0 - [facility] [...] / Volume Laterality 06/24/2014 8:30 AM 4 FLATWARE MAKER 11:18 AM FLATWARE MAKER Deysi Alicea MD LAB - BLOOD ORDERABLES Performing Organization Address City/State/ZIP Code Phon e Number [facility] [address] [place] [address] [facility] documented in this encounter Visit Diagnoses Not on filedocumented in this encounter Care Teams Power Plant Manager Relationship Specialty Start Date End Date Momo Forbes PCP - General Family Practice 01/02/14 [facility] [address] [place] [address] Ingrid Santana, RN Registered Nurse Transplant 02/10/12 documented as of this encounter
--- OUTSIDE RECORDS SUMMARY | 2022-07-05 14:45 | XMS_ITS | Encounter Summary ---
:1950 Author Organization [place] Address [address] [place] [address] Care Team Providers Name Role Phone Ingrid Santana RN Unavailable Unavailable Momo Forbes Primary Care Provider Joseph Quintana MD Unavailable Encounter Details Date Type Department Care Team Description 07/25/2014 External Order Results The Transplant Ce nter Nurse, [facility] 2nd Floor, Clinic [address]A [address] [place] [address] Social History Tobacco Use Types [...] 8:22 AM Results f or this RESULTS HEATING ELEMENT BUILDER procedure are i n the results section. documented in this encounter Results (ABNORMAL) TXP External Lab Result (07/22/2014 8:22 AM HEATING ELEMENT BUILDER) Analysis Performed At Patho logist Time Signature [...] 52 (L) >60 LABDE SCAN (if ml/min/1.7 Turkish) 3m2 (External) GFR Estimated 43 (L) >60 [...] / / Volume Laterality 07/22/2014 8:22 AM HEATING ELEMENT BUILDER Narrative JESSICA PFT - 07/25/2014 6:19 AM HEATING ELEMENT BUILDER Verified by Janee Alexis on 07/25/2014 . Patient Reported LABORATORY Performing Organization Address City/State/ZIP Code Phon e Number [facility]DE SCAN documented in this encounter Visit Diagnoses Not on filedocumented in this encounter Care Teams Talent Solutions Manager Relationship Specialty Start Date End Date Momo Forbes PCP - General Family Practice 01/02/14 [facility] [address] [place] [phone] Ingrid Santana, RN Registered Nurse Transplant 02/10/12 Joseph Quintana, Assigned Nephrology 03/29/21 MD Provider [address] [place] [address] documented as of this encounter
--- OUTSIDE RECORDS SUMMARY | 2022-07-05 14:45 | XMS_ITS | Encounter Summary ---
:1950 Author Organization [place] Address [address] [place] [address] Care Team Providers Name Role Phone Ingrid Santana RN Unavailable Unavailable Momo Forbes Primary Care Provider Joseph Quintana MD Unavailable Encounter Details Date Type Department Care Team Description 08/06/2014 External Order Results The Transplant Ce nter Nurse, [facility] 2nd Floor, Clinic [address]A [address] [place] [address] Social History Tobacco Use Types [...] 8:39 AM Results f or this RESULTS FILM PAINTER procedure are i n the results section. documented in this encounter Results (ABNORMAL) TXP External Lab Result (08/05/2014 8:39 AM FILM PAINTER) Analysis Performed At Patho logist Time Signature [...] 55 (L) >60 LABDE SCAN (if ml/min/1.7 Cape Verdean) 3m2 (External) GFR Estimated 45 (L) >60 [...] / / Volume Laterality 08/05/2014 8:39 AM FILM PAINTER Narrative JESSICA PFT - 08/06/2014 7:40 AM FILM PAINTER Verified by Mary Whitehead on 08/06/2014. Patient Reported LABORATORY Performing Organization Address City/State/ZIP Code Phon e Number [facility]DE [facility] documented in this encounter Visit Diagnoses Not on filedocumented in this encounter Care Teams Bond Clerk Relationship Specialty Start Date End Date Momo Forbes PCP - General Family Practice 01/02/[address] [phone] Ingrid Santana, RN Registered Nurse Transplant 02/10/12 Joseph Quintana, Assigned Nephrology 03/29/21 MD Provider [address] [place] [address] documented as of this encounter
--- OUTSIDE RECORDS SUMMARY | 2022-07-05 14:45 | XMS_ITS | Encounter Summary ---
:1950 Author Organization [place] Address [address] [place] [address] Care Team Providers Name Role Phone Ingrid Santana RN Unavailable Unavailable Momo Forbes Primary Care Provider Joseph Quintana MD Unavailable Encounter Details Date Type Department Care Team Description 07/17/2014 External Order Results The Transplant Ce nter Nurse, [facility] 2nd Floor, Clinic [address]A [address] [place] [address] Social History Tobacco Use Types [...] 8:28 AM Results f or this RESULTS OVERLOCK SLEEVE SETTER procedure are i n the results section. documented in this encounter Results (ABNORMAL) TXP External Lab Result (07/15/2014 8:28 AM OVERLOCK SLEEVE SETTER) Analysis Performed At Patho logist [...] 60 (L) >60 LABDE SCAN (if ml/min/1.7 Italian) 3m2 (External) GFR Estimated 49 (L) >60 [...] / / Volume Laterality 07/15/2014 8:28 AM OVERLOCK SLEEVE SETTER Narrative JESSICA PFT - 07/17/2014 8:35 AM OVERLOCK SLEEVE SETTER Verified by Maribel Plunkett on 07/17/20 14. Patient Reported LABORATORY Performing Organization Address City/State/ZIP Code Phon e Number [facility]DE SCAN documented in this encounter Visit Diagnoses Not on filedocumented in this encounter Care Teams Lactation Nurse Relationship Specialty Start Date End Date Momo Forbes PCP - General Family Practice 01/02/14 [place] [address] Ingrid Santana, RN Registered Nurse Transplant 02/10/12 Joseph Quintana, Assigned Nephrology 03/29/21 MD Provider [address] [place] [address] [phone] documented as of this encounter
--- OUTSIDE RECORDS SUMMARY | 2022-07-05 14:45 | XMS_ITS | Encounter Summary ---
:1950 Author Organization [place] Address [address] [place] [address] Care Team Providers Name Role Phone Ingrid Santana RN Unavailable Unavailable Momo Forbes Primary Care Provider Joseph Quintana MD Unavailable Encounter Details Date Type Department Care Team Description 07/03/2014 External Order Results The Transplant Ce nter Nurse, [facility] 2nd Floor, Clinic [address]A [address] [place] [address] Social History Tobacco Use Types [...] 8:27 AM Results f or this RESULTS MANAGER THERAPY procedure are i n the results section. documented in this encounter Results (ABNORMAL) TXP External Lab Result (07/01/2014 8:27 AM MANAGER THERAPY) Analysis Performed At Patho logist Time Signature [...] 57 (L) >60 LABDE SCAN (if ml/min/1.7 Tuvaluan) 3m2 (External) GFR Estimated 47 (L) >60 [...] / / Volume Laterality 07/01/2014 8:27 AM MANAGER THERAPY Narrative JESSICA PFT - 07/03/2014 2:18 PM MANAGER THERAPY Verified by Xiomara Bello on 07/03/20 14. Patient Reported LABORATORY Performing Organization Address City/State/ZIP Code Phon e Number [facility]DE SCAN documented in this encounter Visit Diagnoses Not on filedocumented in this encounter Care Teams Elementary Assistant Teacher Relationship Specialty Start Date End Date Momo Forbes PCP - General Family Practice 01/02/14 [place] [phone] Ingrid Santana, RN Registered Nurse Transplant 02/10/12 Joseph Quintana, Assigned Nephrology 03/29/21 MD Provider [address] [place] [address] [phone] documented as of this encounter
--- OUTSIDE RECORDS SUMMARY | 2022-07-05 14:45 | XMS_ITS | Encounter Summary ---
:1950 Author Organization [place] Address [address] [place] [address] Care Team Providers Name Role Phone Ingrid Santana RN Unavailable Unavailable Momo Forbes Primary Care Provider Joseph Quintana MD Unavailable Encounter Details Date Type Department Care Team Description 06/24/2014 External Order Results The Transplant Ce nter Nurse, [facility] 2nd Floor, Clinic [address]A [address] [place] [address] Social History Tobacco Use Types [...] 8:37 AM Results f or this RESULTS STRAIGHT EDGER procedure are i n the results section. documented in this encounter Results (ABNORMAL) TXP External Lab Result (06/24/2014 8:37 AM STRAIGHT EDGER) Analysis Performed At Patho logist Time Signature [...] 54 (L) >60 LABDE SCAN (if ml/min/1.7 Andorran) 3m2 (External) GFR Estimated 44 (L) >60 [...] / / Volume Laterality 06/24/2014 8:37 AM STRAIGHT EDGER Narrative JESSICA PFT - 06/24/2014 2:52 PM STRAIGHT EDGER Verified by Sofie Verdin on 4. Patient Reported LABORATORY Performing Organization Address City/State/ZIP Code Phon e Number [facility]DE SC[facility] documented in this encounter Visit Diagnoses Not on filedocumented in this encounter Care Teams Box Brander Relationship Specialty Start Date End Date Momo Forbes PCP - General Family Practice 01/02/14 [place] [phone] Ingrid Santana, RN Registered Nurse Transplant 02/10/12 Joseph Quintana, Assigned Nephrology 03/29/21 MD Provider [address] [place] [address] [phone] documented as of this encounter
--- OUTSIDE RECORDS SUMMARY | 2022-07-05 14:45 | XMS_ITS | Encounter Summary ---
:1950 Author Organization [place] Address [address] [place] [address] Care Team Providers Name Role Phone Ingrid Santana RN Unavailable Unavailable Momo Forbes Primary Care Provider Joseph Quintana MD Unavailable Encounter Details Date Type Department Care Team Description 07/31/2014 External Order Results The Transplant Ce nter Nurse, [facility] 2nd Floor, Clinic [address]A [address] [address] Social History Tobacco Use Types [...] 8:25 AM Results f or this RESULTS PRODUCT SAFETY TECHNICAL ASSISTANT procedure are i n the results section. documented in this encounter Results (ABNORMAL) TXP External Lab Result (07/29/2014 8:25 AM PRODUCT SAFETY TECHNICAL ASSISTANT) [facility] Method Time Signature Sodium (External) [...] / / Volume Laterality 07/29/2014 8:25 AM PRODUCT SAFETY TECHNICAL ASSISTANT Narrative [facility] - 07/31/2014 2:47 PM PRODUCT SAFETY TECHNICAL ASSISTANT Verified by Nazia Duncan on 07/31/2014. Verified by Freddy Mehta on 07/31. Patient Reported LABORATORY Performing Organization Address City/State/ZIP Code Phon e Number [facility]DE SCAN documented in this encounter Visit Diagnoses Not on filedocumented in this encounter Care Teams Structural Layout Worker Relationship Specialty Start Date End Date Momo Forbes PCP - General Family Practice 01/02/14 [facility] [address] [place] [address] Ingrid Santana, RN Registered Nurse Transplant 02/10/12 Joseph Quintana, Assigned Nephrology 03/29/21 MD Provider [address] [place] [address] [address] [place], [place] [phone] documented as of this encounter
--- OUTSIDE RECORDS SUMMARY | 2022-07-05 14:45 | XMS_ITS | Encounter Summary ---
:1950 Author Organization [place] Address [facility] [place] [address] Care Team Providers Name Role Phone Ingrid Santana RN Unavailable Unavailable Momo Forbes Primary Care Provider Encounter Details Date Type Department Care Team Description 08/03/2014 Abstract The Transplant [facility] 2nd Floor, Clinic [address]A [address] [phone] Social History Tobacco Use [...] on filedocumented in this encounter Care Teams Unit Educator Relationship Specialty Start Date End Date Momo Forbes PCP - General Family Practice 01/02/14 [facility] [address] [place] [address] Ingrid Santana, RN Registered Nurse Transplant 02/10/12 documented as of this encounter
--- OUTSIDE RECORDS SUMMARY | 2022-07-05 14:45 | XMS_ITS | Encounter Summary ---
:1950 Author Organization [place] Address [address] [place] [address] Care Team Providers Name Role Phone Ingrid Santana RN Unavailable Unavailable Momo Forbes Primary Care Provider Encounter Details Date Type Department Care Team Description 07/22/2014 Orders Only [facility], [facility], [facility] 500 [facility] [address] [place] [phone] [place] [address] 149 [place] [address] (Wo rk) Social History Tobacco [...] ts for this SINGLE ANTIGEN INCOME TAX EXPERT procedure are in the results section. HLA LUKASZ CLASS I Routine 07/29/2014 8:20 AM Result s for this SINGLE ANTIGEN INCOME TAX EXPERT procedure are in the results section. TACROLIMUS BY TANDEM Routine 07/29/2014 8:20 AM R esults for this MASS SPECTROMETRY INCOME TAX EXPERT procedure are in the results section. TACROLIMUS BY TANDEM Routine 07/22/2014 8:20 AM R esults for this MASS SPECTROMETRY INCOME TAX EXPERT procedure are in the results section. documented in this encounter Results HLA Lukasz Class II Single Antigen (07/29/2014 8:20 AM INCOME TAX EXPERT) [employer] Method Time Signature SA2 Test SA HI [...] 07/29/2014 8:20 AM 4 3:26 INCOME TAX EXPERT PM INCOME TAX EXPERT Deysi Alicea MD LAB - IMMUNOLOGY ORDERABLES Performing Organization Address [facility] Phon e Number U HLA LABORATORY Immunology/Histocompatabil [place], [place] [address] [facility] 500 [facility], Room 3-580 HISTOTRAC HLA Lukasz Class I Single Antigen (07/29/2014 8:20 AM INCOME TAX EXPERT) [employer] Method Time Signature SA1 Test SA HI [...] 07/29/2014 8:20 AM 4 3:26 INCOME TAX EXPERT PM INCOME TAX EXPERT Deysi Alicea MD LAB - IMMUNOLOGY ORDERABLES Performing Organization Address [facility] Phon e Number U HLA LABORATORY Immunology/Histocompatabil [place], [place] [address] [facility] 500 [facility] [address] Building, Room 3-580 HISTOTRAC Tacrolimus level (07/29/2014 8:20 AM INCOME TAX EXPERT) [facility] [employer] [facility] [employer] gist Method Time Signature Tacrolimus Last 1999 [facility] Dose 07/28/14 [facility] Tacrolimus 10.5 5.0 - [facility] Level 15.0 ug/L [facility] Comment: Tacrolimus Reference Range Kidney [...] Laterality 07/29/2014 8:20 AM 4 INCOME TAX EXPERT 11:17 AM INCOME TAX EXPERT Deysi Alicea MD LAB - BLOOD ORDERABLES Performing Organization Address City/State/ZIP Code Phon e Number [facility] [address] [place] [address] [facility] Tacrolimus level (07/22/2014 8:20 AM INCOME TAX EXPERT) [facility] [employer] gist Method Time Signature Tacrolimus Last 1929 [facility] Dose 07/21/14 [facility] Tacrolimus 10.8 5.0 - [facility] Level 15.0 ug/L [facility] Comment: Tacrolimus Reference Range Kidney [...] Laterality 07/22/2014 8:20 AM 4 INCOME TAX EXPERT 11:45 AM INCOME TAX EXPERT Deysi Alicea MD LAB - BLOOD ORDERABLES Performing Organization Address City/State/ZIP Code Phon e Number [facility] [address] [place] [address] [facility] documented in this encounter Visit Diagnoses Not on filedocumented in this encounter Care Teams Project Manager Relationship Specialty Start Date End Date Momo Forbes PCP - General Family Practice 01/02/14 [facility] [address] [place] [address] Ingrid Santana, RN Registered Nurse Transplant 02/10/12 documented as of this encounter
--- OUTSIDE RECORDS SUMMARY | 2022-07-05 14:45 | XMS_ITS | Encounter Summary ---
:1950 Author Organization [place] Address [address] [place] [address] Care Team Providers Name Role Phone Ingrid aSntana RN Unavailable Unavailable Momo Forbes Primary Care Provider Joseph Quintana MD Unavailable Encounter Details Date Type Department Care Team Description 07/10/2014 External Order Results The Transplant Ce nter Nurse, [facility] 2nd Floor, Clinic [address]A [address] [place] [address] Social History Tobacco Use Types [...] 8:17 AM Results f or this RESULTS OFFICE AUDITOR procedure are i n the results section. documented in this encounter Results (ABNORMAL) TXP External Lab Result (07/08/2014 8:17 AM OFFICE AUDITOR) Analysis Performed At Patho logist Time Signature [...] Estimated >60 >60 LABDE SCAN (if ml/min/1.7 South Sudanese) 3m2 (External) GFR Estimated 51 (L) [...] / / Volume Laterality 07/08/2014 8:17 AM OFFICE AUDITOR Narrative JESSICA PFT - 07/10/2014 6:20 AM OFFICE AUDITOR Verified by Janee Alexis on 07/10/2014 . Patient Reported LABORATORY Performing Organization Address City/State/ZIP Code Phon e Number [facility] LABDE SCAN documented in this encounter Visit Diagnoses Not on filedocumented in this encounter Care Teams Psychotherapist Counselor Relationship Specialty Start Date End Date Momo Forbes PCP - General Family Practice 01/02/[address] [address] Ingrid Santana, RN Registered Nurse Transplant 02/10/12 Joseph Quintana, Assigned Nephrology 03/29/21 MD Provider [address] [place] [address] documented as of this encounter
--- OUTSIDE RECORDS SUMMARY | 2022-07-05 14:45 | XMS_ITS | Encounter Summary ---
:1950 Author Organization [place] Address [address] [place] [address] Care Team Providers Name Role Phone Ingrid Santana RN Unavailable Unavailable Momo Forbes Primary Care Provider Reason for Visit Reason Onset Date Comments Transplant 08/08/2014 immunosuppression ma neil Encounter Details Date Type Department Care Team Description 08/08/2014 Refill Nephrology Shiva Kahn, military lawyer 2nd Floor, Clinic 2A [facility] (immunosuppression Sanders Wangensteen [address] [place] [address] management) Building [address] [place] [phone] Social History Tobacco Use Types Packs/Day Years [...] to lower Prograf dose to 1.5mg BID. DECORATOR Telephone Encounter - Shiva Kahn RN - 08/08/2014 5:33 PM CST ISSUE: Tacrolimus level 9.0. New target tacrolimus levels 6-8 since patient is now 6 months post kidney transplant. PLAN: Decrease Prograf dose from 2 mg twice daily to 1.5 mg twice daily. TASK: Please call patient with instructions for dose change. 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
--- OUTSIDE RECORDS SUMMARY | 2022-07-05 14:45 | XMS_ITS | Encounter Summary ---
:1950 Author Organization [place] Address [facility] [address] Care Team Providers Name Role Phone Ingrid Santana RN Unavailable Unavailable Momo Forbes Primary Care Provider Reason for Visit Reason Onset Date Comments Transplant 06/20/2014 FK 6.6 Encounter Details Date Type Department Care Team Description 06/20/2014 Telephone Nephrology Carmelita Rosario, Transplant (FK 6.6) 2nd Floor, Clinic 2A [place] [phone] Social History Tobacco Use Types Packs/Day [...] documented in this encounter Care Teams Air Press Operator Relationship Specialty Start Date End Date Momo Forbes PCP - General Family Practice 01/02/[address] [address] Ingrid Santana, RN Registered Nurse Transplant 02/10/12 documented as of this encounter
--- OUTSIDE RECORDS SUMMARY | 2022-07-05 14:46 | XMS_ITS | Encounter Summary ---
:1950 Author Organization [place] Address [facility] [place] [address] Care Team Providers Name Role Phone Ingrid Santana RN Unavailable Unavailable Momo Forbes Primary Care Provider Reason for Visit Reason Onset Date Comments Refill Request 04/05/2014 Tamy Cabrera Encounter Details Date Type Department Care Team Description 04/05/2014 Refill The Transplant Migel Martinez, Refill Request 2nd Floor, Clinic 2A [facility] ant[facility]razole) Building [facility] 195 6 [facility] 88 [place] [phone] Social History Tobacco Use Types Packs/Day Years [...] Last Fill: 03/14/14 Qty: 30 [facility] [phone] documented in this encounter Plan of Treatment Not on filedocumented as of this encounter Visit Diagnoses Diagnosis S/P kidney transplant Kidney replaced by transplant Atrial fibrillation (H) Atrial fibrillation documented in this encounter Care Teams Health Insurance Sales Agent Relationship Specialty Start Date End Date Momo Forbes PCP - General Family Practice 01/02/14 [facility] [address] [place] [address] Ingrid Santana, RN Registered Nurse Transplant 02/10/12 documented as of this encounter
--- OUTSIDE RECORDS SUMMARY | 2022-07-05 14:46 | XMS_ITS | Encounter Summary ---
:1950 Author Organization [place] Address [address] [place] [address]. [place] [address] Care Team Providers Name Role Phone Ingrid Santana RN Unavailable Unavailable Momo Forbes Primary Care Provider Encounter Details Date Type Department Care Team Description 04/04/2014 Orders Only Nephrology Shiva Kahn RN S/P kidney transplant 2nd Floor, Clinic 2A [address] [phone] Social History Tobacco Use Types Packs/Day Years [...] documented in this encounter Care Teams Manufacturing Technologist Relationship Specialty Start Date End Date Momo Forbes PCP - General Family Practice 01/02/14 [facility] [address] [place] [address] Ingrid Santana RN Registered Nurse Transplant 02/10/12 documented as of this encounter
--- OUTSIDE RECORDS SUMMARY | 2022-07-05 14:46 | XMS_ITS | Encounter Summary ---
:1950 Author Organization [place] Address [address] [place] [address] Care Team Providers Name Role Phone Ingrid Santana RN Unavailable Unavailable Momo Forbes Primary Care Provider Joseph Quintana MD Unavailable Encounter Details Date Type Department Care Team Description 06/08/2014 External Order Results The Transplant Ce nter Nurse, [facility] 2nd Floor, Clinic 2A [address] [place] [address] Social History Tobacco Use Types [...] External Lab Result (06/05/2014 8:30 AM CDT) [facility] Method Time Signature Sodium (External) 138 [...] filedocumented in this encounter Care Teams Rn Telephonic Relationship Specialty Start Date End Date Momo Forbes PCP - General Family Practice 01/02/14 [facility] [address] [place] [address] Ingrid Santana, RN Registered Nurse Transplant 02/10/12 Joseph Quintana, Assigned Nephrology 03/29/21 MD Provider [address] [place] [address] [address] [place] [address] documented as of this encounter
--- OUTSIDE RECORDS SUMMARY | 2022-07-05 14:46 | XMS_ITS | Encounter Summary ---
:1950 Author Organization [place] Address Counts include 234 beds at the [facility]0 [place] [address] Care Team Providers Name Role Phone Ingrid Santana RN Unavailable Unavailable Momo Forbes Primary Care Provider Encounter Details Date Type Department Care Team Description 05/20/2014 External Order Results The Transplant Ce nter Nurse, [facility] 2nd Floor, Clinic 2A [address] [address] Social History Tobacco Use Types [...] 55 (L) >60 LABDE SCAN (if ml/min/1.7 Indonesian) 3m2 (External) GFR Estimated 46 (L) >60 [...] filedocumented in this encounter Care Teams Glass Setter Relationship Specialty Start Date End Date Momo Forbes PCP - General Family Practice 01/02/14 [facility] [address] [place], [place] [phone] Ingrid Santana, RN Registered Nurse Transplant 02/10/12 documented as of this encounter
--- OUTSIDE RECORDS SUMMARY | 2022-07-05 14:46 | XMS_ITS | Encounter Summary ---
:1950 Author Organization [place] Address [facility] [place] [address] Care Team Providers Name Role Phone Ingrid Santana RN Unavailable Unavailable Momo Forbes Primary Care Provider Encounter Details Date Type Department Care Team Description 05/17/2014 Orders Only Nephrology Shiva Kahn RN -donor kidney 2nd Floor, Clinic 2A [facility] transplant recipient Tommy Ruizfelisa [address] [place] [address] (Primary Dx) Building [address] [place] [phone] Social History Tobacco Use Types Packs/Day Years [...] transplant documented in this encounter Care Teams Reel Winder Relationship Specialty Start Date End Date Momo Forbes PCP - General Family Practice 01/02/[address] [address] Ingrid Santana RN Registered Nurse Transplant 02/10/12 documented as of this encounter
--- OUTSIDE RECORDS SUMMARY | 2022-07-05 14:46 | XMS_ITS | Encounter Summary ---
:1950 Author Organization [place] Address [facility] [place] [address] Care Team Providers Name Role Phone Ingrid Santana RN Unavailable Unavailable Momo Forbes Primary Care Provider Reason for Visit Reason Comments Heart Problem 6 week F/U Encounter Details Date Type Department Care Team Description 05/14/2014 [facility] Un[facility] es s[facility] [place] [facility] Kei Hernandez, shanon carey (Primary Heart MD Dx) [facility] 4th Floor, Clinic 4B [address] [phone] [place], [place] (Work) [address] [phone] Social History Tobacco Use Types Packs/Day Years [...] questions or concerns. Rubi Howell RN Cardiology Meter Record Clerk documented in this encounter Progress Notes Kei [...] ramirez documented in this encounter Care Teams Legal Collector Relationship Specialty Start Date End Date Momo Forbes PCP - General Family Practice 01/02/14 [place] [phone] Ingrid Santana, RN Registered Nurse Transplant 02/10/12 documented as of this encounter
--- OUTSIDE RECORDS SUMMARY | 2022-07-05 14:46 | XMS_ITS | Encounter Summary ---
:1950 Author Organization [place] Address [address] [place] [address] Care Team Providers Name Role Phone Ingrid Santana RN Unavailable Unavailable Momo Forbes Primary Care Provider Encounter Details Date Type Department Care Team Description 04/22/2014 Orders Only [facility], Joseph Conor [facility], [facility] jm [place] [address] [phone] [place] [address] [address] [place] [address] (Wo rk) Social History Tobacco [...] (ABNORMAL) Tacrolimus level (05/17/2014 8:17 AM CDT) [facility] Method Time Signature Tacrolimus Last 05/16/2014 [facility] Dose 2000 [facility] Tacrolimus 4.4 (L) 5.0 - [facility] Level 15.0 ug/L [place] [...] e Number [facility] 500 [place], [place] [id number] [place] [address] [facility] (ABNORMAL) Tacrolimus level (05/15/2014 8:15 AM CDT) [facility] gist Method Time Signature Tacrolimus Last 05/14/14 [facility] Dose 2000 [facility] Tacrolimus 4.6 (L) 5.0 - [facility] Level 15.0 ug/L [place] [...] e Number [facility] 500 [place] [address] [facility] Tacrolimus level (05/10/2014 8:50 AM CDT) [facility] gist Method Time Signature Tacrolimus Not Provided [facility] Dose [facility] Tacrolimus 14.3 5.[address] - [facility] Level 15.0 ug/L [facility] [...] e Number [facility] 500 [place] [address] [place] [facility] (ABNORMAL) Tacrolimus level (05/07/2014 8:15 AM CDT) [facility] gist Method Time Signature Tacrolimus Last 05/06/14 [facility] Dose 2000 [facility] Tacrolimus 15.9 (H) 5.0 - [facility] Level 15.0 ug/L [place] [...] e Number [facility] 500 [place], [place] [id number] [place] [address] [facility] Tacrolimus level (05/03/2014 8:13 AM CDT) [facility] gist Method Time Signature Tacrolimus Last [facility] Dose 2000 [facility] Tacrolimus 8.8 5.0 - [facility] Level 15.0 ug/L [place] [...] e Number [facility] 500 [place], [place] [phone] [place] [address] [facility] Tacrolimus level (04/30/2014 8:20 AM CDT) [facility] gist Method Time Signature Tacrolimus Last 04/29/14 [facility] Dose 2000 [facility] Tacrolimus 12.6 5.0 - [facility] Level 15.0 ug/L [place] [...] e Number [facility] 500 [place], [place] [id number] [place] [address] [facility] Tacrolimus level (04/26/2014 8:30 AM CDT) [facility] gist Method Time Signature Tacrolimus Last 04/25/14 [facility] Dose 1900 [facility] Tacrolimus 10.1 5.0 - [facility] Level 15.0 ug/L [place] [...] e Number [facility] 500 [place] [address] [facility] Tacrolimus level (04/24/2014 9:00 AM CDT) [facility] gist Method Time Signature Tacrolimus Last 04/23/14 [facility] Dose 1900 [facility] Tacrolimus 13.1 [...] e Number [facility] 500 [place], [place] [phone] [place] [address] LABS documented in this encounter Visit Diagnoses Not on filedocumented in this encounter Care Teams Tube Rebuilder Relationship Specialty Start Date End Date Momo Forbes PCP - General Family Practice 01/02/14 [facility] [address] [place] [address] Ingrid Santana, RN Registered Nurse Transplant 02/10/12 documented as of this encounter
--- OUTSIDE RECORDS SUMMARY | 2022-07-05 14:46 | XMS_ITS | Encounter Summary ---
:1950 Author Organization [place] Address [facility] [place] [address] Care Team Providers Name Role Phone Ingrid Santana RN Unavailable Unavailable Momo Forbes Primary Care Provider Encounter Details Date Type Department Care Team Description 05/10/2014 Orders Only Nephrology Shiva Kahn RN -donor kidney 2nd Floor, Clinic 2A [facility] transplant recipient Tommy Ruizfelisa [address] [place] [address] (Primary Dx) Building [address] [place] [phone] Social History Tobacco Use Types Packs/Day Years [...] transplant documented in this encounter Care Teams Cheese Cook Relationship Specialty Start Date End Date Momo Forbes PCP - General Family Practice 01/02/[address] [address] Ingrid Santana RN Registered Nurse Transplant 02/10/12 documented as of this encounter
--- OUTSIDE RECORDS SUMMARY | 2022-07-05 14:46 | XMS_ITS | Encounter Summary ---
:1950 Author Organization [place] Address [facility] [place] [address] Care Team Providers Name Role Phone Ingrid Santana RN Unavailable Unavailable Momo Forbes Primary Care Provider Encounter Details Date Type Department Care Team Description 05/02/2014 Orders Only Nephrology Shiva Kahn RN -donor kidney 2nd Floor, Clinic 2A [facility] transplant recipient Tommy Ruizfelisa [address] [place] [phone] Social History Tobacco Use Types Packs/Day Years [...] documented in this encounter Care Teams Powerhouse Engineer Relationship Specialty Start Date End Date Momo Forbes PCP - General Family Practice 01/02/[address] [address] Ingrid Santana RN Registered Nurse Transplant 02/10/12 documented as of this encounter
--- OUTSIDE RECORDS SUMMARY | 2022-07-05 14:46 | XMS_ITS | Encounter Summary ---
:1950 Author Organization [place] Address [facility] [place] [address] Care Team Providers Name Role Phone Ingrid Santana RN Unavailable Unavailable Momo Forbes Primary Care Provider Encounter Details Date Type Department Care Team Description 06/10/2014 External Order Results The Transplant Ce nter Nurse, [facility] 2nd Floor, Clinic 2A [address] [phone] Social History Tobacco Use [...] 60 (L) >60 LABDE SCAN (if ml/min/1.7 Zambian) 3m2 (External) GFR Estimated 49 (L) >60 [...] filedocumented in this encounter Care Teams Hull [employer] De[employer] Remover Relationship Specialty Start Date End Date Momo Forbes PCP - General Family Practice 01/02/14 [facility] [address] [place] [address] Ingrid Santana, RN Registered Nurse Transplant 02/10/12 documented as of this encounter
--- OUTSIDE RECORDS SUMMARY | 2022-07-05 14:46 | XMS_ITS | Encounter Summary ---
:1950 Author Organization [place] Address [facility]0 [place] [address] Care Team Providers Name Role Phone Ingrid Santana RN Unavailable Unavailable Momo Forbes Primary Care Provider Reason for Visit Reason Comments RECHECK 3 month Tx follow Up Encounter Details Date Type Department Care Team Description 05/13/2014 Office Visit Nephrology Deysi Alicea, DM (diabetes mellitus), type 2 (H) (Primary Dx); 2nd Floor, Clinic 2A MD S/P kidney transplant Tommy Wilburn [phone] [place] [address] (Wo rk) [phone] Social History Tobacco Use Types Packs/Day Years [...] discharged on Cumadin; Cumadin was stopped by pharmacy sales representative during the follow up visit, as he [...] of Education: 14 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
--- OUTSIDE RECORDS SUMMARY | 2022-07-05 14:46 | XMS_ITS | Encounter Summary ---
:1950 Author Organization [place] Address [facility] [place] [address] Care Team Providers Name Role Phone Ingrid Santana RN Unavailable Unavailable Momo Forbes Primary Care Provider Encounter Details Date Type Department Care Team Description 06/17/2014 External Order Results The Transplant Ce nter Nurse, [facility] 2nd Floor, Clinic 2A [address] [phone] Social History Tobacco Use Types [...] 57 (L) >60 LABDE SCAN (if ml/min/1.7 Swiss) 3m2 (External) GFR Estimated 47 (L) >60 [...] filedocumented in this encounter Care Teams Hand Hardener Relationship Specialty Start Date End Date Momo Forbes PCP - General Family Practice 01/02/14 [facility] [address] [place] [phone] Ingrid Santana, RN Registered Nurse Transplant 02/10/12 documented as of this encounter
--- OUTSIDE RECORDS SUMMARY | 2022-07-05 14:46 | XMS_ITS | Encounter Summary ---
:1950 Author Organization [place] Address [address] [facility] [address] Care Team Providers Name Role Phone Ingrid Snatana RN Unavailable Unavailable Momo Forbes Primary Care Provider Reason for Visit Auth/Cert - Closed Specialty Diagnoses / Procedures Referred By Contact Refer red To Contact Surgery Diagnoses S/P Kidney Transplant Uu Periop Procedures COMBINED CYSTOSCOPY, REMOVE STENT(S) 500 [place] [address] Phone: Fax: Referral ID Status Reason Start Date Expiration Date Visits Requ ested Visits Authorized [id number] Closed 1 1 Encounter Details Date Type Department Care Team Description 04/01/2014 Anesthesia Event [facility] Clari Torres MD PeriOp Services [facility] ANESTHESIA 500 [place] [address] [place] [address] [place], [place] [address] (Wo rk) Anesthesia Record Procedure Summary Procedure [...] benefits and alternatives discussed with: patient or call center representative. I agree with the plan written [...] Intra-op documented in this encounter Care Teams Millinery Designer Relationship Specialty Start Date End Date Momo Forbes PCP - General Family Practice 01/02/14 [place] [phone] Ingrid Santana, RN Registered Nurse Transplant 02/10/12 documented as of this encounter
--- OUTSIDE RECORDS SUMMARY | 2022-07-05 14:46 | XMS_ITS | Encounter Summary ---
:1950 Author Organization [place] Address [address] [place] [address] Care Team Providers Name Role Phone Ingrid Santana RN Unavailable Unavailable Momo Forbes Primary Care Provider Joseph Quintana MD Unavailable Encounter Details Date Type Department Care Team Description 05/27/2014 External Order Results The Transplant Ce nter Nurse, [facility] 2nd Floor, Clinic 2A [address] [place] [address] Social History Tobacco Use Types [...] Estimated >60 >60 LABDE SCAN (if ml/min/1.7 Andorran) 3m2 (External) GFR Estimated 52 (L) >60 [...] on filedocumented in this encounter Care Teams Salesperson Wigs Relationship Specialty Start Date End Date Momo Forbes PCP - General Family Practice 01/02/14 [facility] 1999 [place], [place] [phone] Ingrid Santana, RN Registered Nurse Transplant 02/10/12 Joseph Quintana, Assigned Nephrology 03/29/21 MD Provider [address] [place] [address] documented as of this encounter
--- OUTSIDE RECORDS SUMMARY | 2022-07-05 14:46 | XMS_ITS | Encounter Summary ---
:1950 Author Organization [place] Address [facility]0 [facility] [place] [address] Care Team Providers Name Role Phone Ingrid Santana RN Unavailable Unavailable Momo Forbes Primary Care Provider Encounter Details Date Type Department Care Team Description 06/07/2014 External Order Results The Transplant Ce nter Nurse, [facility] 2nd Floor, Clinic 2A [address] [phone] Social History Tobacco Use Types [...] External Lab Result (06/05/2014 8:30 AM CDT) [facility] Method Time Signature Sodium (External) 138 [...] in this encounter Care Teams Public Health Technician Relationship Specialty Start Date End Date Momo Forbes PCP - General Family Practice 01/02/14 [facility] [address] [place] [address] Ingrid Santana, RN Registered Nurse Transplant 02/10/12 2 documented as of this encounter
--- OUTSIDE RECORDS SUMMARY | 2022-07-05 14:46 | XMS_ITS | Encounter Summary ---
:1950 Author Organization [place] Address [facility] [place] [address] Care Team Providers Name Role Phone Ingrid Santana RN Unavailable Unavailable Momo Forbes Primary Care Provider Reason for Visit Reason Onset Date Comments Refill Request 04/26/2014 Encounter Details Date Type Department Care Team Description 04/26/2014 Refill Nephrology Shiva Kahn RN Refill Request 2nd Floor, Clinic 2A [facility] Sanders [place] [address] [facility] [place], [place] [id number] [place] [address] [place] [phone] Social History Tobacco Use Types Packs/Day [...] transplant documented in this encounter Care Teams Canvas Cutter Machine Relationship Specialty Start Date End Date Momo Forbes PCP - General Family Practice 01/02/14 [facility] [address] [place] [address] Ingrid Santana RN Registered Nurse Transplant 02/10/12 documented as of this encounter
--- OUTSIDE RECORDS SUMMARY | 2022-07-05 14:46 | XMS_ITS | Encounter Summary ---
:1950 Author Organization [place] Address [facility] [place] [address] Care Team Providers Name Role Phone Ingrid Santana RN Unavailable Unavailable Momo Forbes Primary Care Provider Reason for Visit Reason Onset Date Comments Anticoagulation 04/01/2014 Encounter Details Date Type Department Care Team Description 04/01/2014 Telephone [facility] Joseph Levine , Anticoagulation Anticoagulation Clin ic [facility] [address] [place], [place] [phone] [facility] [phone] [place] [address] [place] [phone] (Wo rk) Social History Tobacco Use Types Packs/Day Years Used Date Smoking Tobacco: Former Cigars Quit : 08/22/2006 Smokeless Tobacco: Never Alcohol Use Standard Drinks/Week Comments Yes 0 (1 standard drink = 0.6 oz pure alcoho l) occasional drink. Sex Assigned at Date Recorded Not on file documented as of this encounter Miscellaneous Notes Telephone Encounter - Joseph Levnie, [facility] - 04/01/2014 5:22 PM CDT INR today was 1.64 I spoke with Diego his proceedure went well. I recommended warfarin 7.5mgs MWF 5mgs all other days He will have an INR on 04/09/14 at his appointment with Dr Rodriguez documented in this encounter Plan of Treatment Not on filedocumented as of this encounter Visit Diagnoses Not on filedocumented in this encounter Care Teams Cable Braider Relationship Specialty Start Date End Date Momo Forbes PCP - General Family Practice 01/02/14 [place] [id number] Ingrid Santana, RN Registered Nurse Transplant 02/10/12 documented as of this encounter
--- OUTSIDE RECORDS SUMMARY | 2022-07-05 14:46 | XMS_ITS | Encounter Summary ---
:1950 Author Organization [place] Address [facility] [place] [address] Care Team Providers Name Role Phone Ingrid Santana RN Unavailable Unavailable Momo Forbes Primary Care Provider Reason for Visit Reason Onset Date Comments Pre Visit Planning - Done 04/08/2014 2 m f/u Post o p AFIB s/p DCCV. on warfarin 4 weeks Encounter Details Date Type Department Care Team Description 04/08/2014 PRE VISIT [facility] [address] Pre Visit Planning - Physicians Heart MD David Done (2 m f/u Post op [facility] AF IB s/p DCCV. on [facility] warfarin 4 weeks) 4th Floor, Clinic 4B [address] [phone] (Wo rk) [address] [phone] Social History Tobacco Use Types Packs/Day Years [...] filedocumented in this encounter Care Teams Pharmacy Retail Support Specialist Relationship Specialty Start Date End Date Momo Forbes PCP - General Family Practice 01/02/[address] [address] Ingrid Santana, RN Registered Nurse Transplant 02/10/12 documented as of this encounter
--- OUTSIDE RECORDS SUMMARY | 2022-07-05 14:46 | XMS_ITS | Encounter Summary ---
:1950 Author Organization [place] Address [facility] [place] [address] Care Team Providers Name Role Phone Ingrid Santana RN Unavailable Unavailable Momo Forbes Primary Care Provider Reason for Visit Reason Comments RECHECK s/p kidney tx Auth/Cert - Closed Specialty Diagnoses / Procedures Referred By Contact Refer red To Contact Surgery Diagnoses S/P Kidney Transplant Uu Periop Procedures COMBINED CYSTOSCOPY, REMOVE STENT(S) 500 [place] [address] Phone: Fax: Referral ID Status Reason Start Date Expiration Date Visits Requ ested Visits Authorized [id number] Closed 1 1 Encounter Details Date Type Department Care Team Description 04/01/2014 Office Visit Nephrology Deysi Alicea Immunosuppressed status (H) (Primary Dx); 2nd Floor, Clinic MD Aline High risk medication use; 2A [facility] Kidney replaced by homeroan t; Tommy DOMÍNGUEZ S/P kidney transplant [place] [address] [place] [address] [place], [place] (Work) [address] [phone] Social History Tobacco Use Types Packs/Day Years [...] follow up, I will ask his marketing information coordinator to obtain results from his local [...] at home regularly; BP checked by me isu845/80; HE was previously on Metoprolol 12.5 mg [...] of Education: 14 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
--- OUTSIDE RECORDS SUMMARY | 2022-07-05 14:46 | XMS_ITS | Encounter Summary ---
:1950 Author Organization [place] Address [address] [place] [address] Care Team Providers Name Role Phone Ingrid Santana RN Unavailable Unavailable Momo Forbes Primary Care Provider Reason for Visit Auth/Cert - Closed Specialty Diagnoses / Procedures Referred By Contact Refer red To Contact Surgery Diagnoses S/P Kidney Transplant Uu Periop Procedures COMBINED CYSTOSCOPY, REMOVE STENT(S) 500 [place] [address] Phone: Fax: Referral ID Status Reason Start Date Expiration Date Visits Requ ested Visits Authorized [id number] Closed 1 1 Encounter Details Date Type Department Care Team Description 04/01/2014 Surgery [facility] Migel Merchant , [place] of Right Double PeriOp Services J Stent 500 [facility] 420 [facility] [place] [address] [place] [address] [place] [address] (Wo rk) Surgery Details Date/Time Status Location [...] Scott RN - 04/01/2014 10:15 AM CDT [facility] [place] Same-Day Surgery Adult Discharge Orders & Instructions [...] To contact a doctor, call or: ??? [phone] and ask for the resident operations representative for (answered 24 hours a day) ??? Emergency Department: [facility]: [phone] (TTY for hearing impaired: [phone]) documented in this encounter Medications at Time [...] Component Value Ref Test Analysis Performed At [facility] gist Range Method Time Signature [...] Number [facility] [address] LABS [facility] MICROBIOLOGY (ABNORMAL) UA with Microscopic (04/01/2014 9:00 AM CDT) Component Value Ref Test Analysis Performed At Patholo gist Range Method Time Signature Color Urine Yellow [facility]S Appearance Urine Clear [facility] Glucose Urine 30 (A) NEG [facility] mg/dL [facility] LABS Bilirubin Urine Negative NEG [facility] Ketones Urine Negative NEG [facility] mg/dL [facility] [place] LABS Specific [place] 1.017 1.003 - [facility] Urine 1.035 [facility] [place] [facility] Blood Urine Moderate (A) NEG [facility] pH Urine 6.0 5.0 - [facility] 7.0 pH [facility] LABS Protein Albumin 10 (A) NEG [facility] Urine mg/dL [facility] [place] LABS Urobilinogen Normal 0.0 - [facility] mg/dL 2.0 UNIVERSITY mg/dL CAMPUS LABS Nitrite Urine Negative NEG [facility] Leukocyte Negative NEG [facility] Esterase Urine [facility] [place] LABS Source Unspecified [facility] Urine UNIVERSITY CAMPUS [...] Code Phon e Number [facility] [address] LABS (ABNORMAL) INR (04/01/2014 8:36 AM CDT) P athologist Signature INR 1.64 (H) 0.86 - 1.14 [facility] LABS Specimen Anatomical Collection Method Collection Time Receive d Time (Source) Location / / Volume Laterality Blood specimen 04/01/2014 8:36 AM 014 8:41 (specimen) CDT AM CDT Momo Jimenez MD LAB - BLOOD ORDERABLES Performing Organization Address City/[facility]/ZIP Code Phon e Number [facility] [address] LABS EKG 12-lead, tracing only (04/01/2014 8:28 AM CDT) [facility] gist Method Time Signature Interpretation ECG Click View RADIOLOGY Image link RESULTS to view waveform and result Specimen (Source) Anatomical Collection Method Collection Time Re ceived Time Location / / Volume Laterality 04/01/2014 8:28 AM CDT Momo Jimenez MD ECG ORDERABLES Performing Organization Address City/[facility]/ZIP Code Phon e Number RADIOLOGY RESULTS Potassium (04/01/2014 8:11 AM CDT) athologist Signature Potassium 4.1 3.4 - 5.3 [facility] mmol/L CAMPUS LABS Specimen Anatomical Collection Method Collection Time Receive d Time (Source) Location / / Volume Laterality Blood specimen 04/01/2014 8:11 AM 014 8:27 (specimen) CDT AM CDT Momo Jimenez MD LAB - BLOOD ORDERABLES Performing Organization Address City/[facility] Code Phon e Number [address] LABS (ABNORMAL) Hemoglobin (04/01/2014 8:11 AM CDT) athologist [facility] Hemoglobin 10.2 (L) 13.3 - [facility] 17.7 g/dL CAMPUS LABS Specimen Anatomical Collection Method Collection Time Receive d Time (Source) Location / / Volume Laterality Blood specimen 04/01/2014 8:11 AM 014 8:27 (specimen) CDT AM CDT Momo Jimenez MD LAB - BLOOD ORDERABLES Performing Organization Address City/[facility]/ZIP Code Phon e Number [address] LABS (ABNORMAL) Glucose by meter [...] 0850 (Given - Provider: Addis Brannon APRN IC DESIGN MANAGER - Comment: Asked by Fellow to give [...] Intra-procedure documented in this encounter Care Teams Sliding Joint Maker Relationship Specialty Start Date End Date Momo Forbes PCP - General Family Practice 01/02/[address] [address] Ingrid Santana, RN Registered Nurse Transplant 02/10/12 documented as of this encounter
--- OUTSIDE RECORDS SUMMARY | 2022-07-05 14:46 | XMS_ITS | Encounter Summary ---
:1950 Author Organization [place] Address [address] [place] [address]. [place] [address] Care Team Providers Name Role Phone Ingrid Santana RN Unavailable Unavailable Momo Forbes Primary Care Provider Reason for Visit Reason Onset Date Comments Patient Reminder 05/09/2014 Encounter Details Date Type Department Care Team Description 05/09/2014 Telephone Nephrology Yesenia Clements LPN Patient Reminder 2nd Floor, Clinic 2A [address] [phone] Social History Tobacco Use [...] filedocumented in this encounter Care Teams Supervisor Cereal Relationship Specialty Start Date End Date Momo Forbes PCP - General Family Practice 01/02/14 [facility] [address] [place] [address] Ingrid Santana, RN Registered Nurse Transplant 02/10/12 documented as of this encounter
--- OUTSIDE RECORDS SUMMARY | 2022-07-05 14:46 | XMS_ITS | Encounter Summary ---
:1950 Author Organization [place] Address [facility] [place] [address] Care Team Providers Name Role Phone Ingrid Santana RN Unavailable Unavailable Momo Forbes Primary Care Provider Reason for Visit Reason Onset Date Comments Pre Visit Planning - Done 05/13/2014 6 week f/u pos t op afib. medication changes last visit. Encounter Details Date Type Department Care Team Description 05/13/2014 PRE VISIT [facility] [address] Pre Visit Planning - Physicians Orestes Hernandez MD Done (6 week f/u post [facility] op afib. medication Building [place] changes last visit. ) 4th Floor, Clinic 4B [address] [phone] (Wo rk) [address] [phone] Social History Tobacco Use Types Packs/Day Years [...] on filedocumented in this encounter Care Teams Firestopper Installer Relationship Specialty Start Date End Date Momo Forbes PCP - General Family Practice 01/02/[address] [address] Ingrid Santana, RN Registered Nurse Transplant 02/10/12 documented as of this encounter
--- OUTSIDE RECORDS SUMMARY | 2022-07-05 14:46 | XMS_ITS | Encounter Summary ---
:1950 Author Organization [place] Address [address] [place] [address] Care Team Providers Name Role Phone Ingrid Santana RN Unavailable Unavailable Momo Forbes Primary Care Provider Joseph Quintana MD Unavailable Encounter Details Date Type Department Care Team Description 05/16/2014 External Order Results The Transplant Ce nter Nurse, [facility] 2nd Floor, Clinic [address]A [address] [place] [address] Social History Tobacco Use [...] Estimated >60 >60 LABDE SCAN (if ml/min/1.7 Greek) 3m2 (External) GFR Estimated 52 (L) >60 [...] on filedocumented in this encounter Care Teams Cotton Picker Relationship Specialty Start Date End Date Momo Forbes PCP - General Family Practice 01/02/14 [facility] 1999 [place] [address] Ingrid Santana, RN Registered Nurse Transplant 02/10/12 Joseph Quintana, Assigned Nephrology 03/29/21 MD Provider [address] [place] [address] documented as of this encounter
--- OUTSIDE RECORDS SUMMARY | 2022-07-05 14:46 | XMS_ITS | Encounter Summary ---
:1950 Author Organization [place] Address [facility] [place] [address] Care Team Providers Name Role Phone Ingrid Santana RN Unavailable Unavailable Momo Forbes Primary Care Provider Reason for Visit Reason Comments Heart Problem 2 m f/u Post op AFIB s/p DCC V. on warfarin 4 weeks Encounter Details Date Type Department Care Team Description 04/09/2014 [facility] Atrial fibrill ation (H) (Primary Dx); [place] [facility] Enrique Maria pecified essential hypertension; Heart Other and unspecified hyperlipidemia; Tommy [facility] DM (diabetes mellitus), type 2 (H) Building [facility] 4th Floor, Clinic 4B [address] [phone] [place], [place] (Work) [address] [phone] Social History Tobacco Use Types Packs/Day Years [...] questions or concerns. 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 Smoking [...] 04/01/2014 Negative NEG mg/dL Final ??? Specific [place] Urine 04/01/2014 1.017 1.003 - 1.035 Final [...] NEG Ketones Urine Negative NEG mg/dL Specific [place] Urine 1.017 1.003 - 1.035 Blood Urine [...] uncontrolled documented in this encounter Care Teams Special Services Supervisor Relationship Specialty Start Date End Date Momo Forbes PCP - General Family Practice 01/02/14 [facility] [address] [place] [address] Ingrid Santana, RN Registered Nurse Transplant 02/10/12 documented as of this encounter
--- OUTSIDE RECORDS SUMMARY | 2022-07-05 14:46 | XMS_ITS | Encounter Summary ---
:1950 Author Organization [place] Address [address] [place] [address] Care Team Providers Name Role Phone Ingrid Santana RN Unavailable Unavailable Momo Forbes Primary Care Provider Encounter Details Date Type Department Care Team Description 05/22/2014 Orders Only [facility], Joseph [facility], [facility] jm [place] [address] [phone] [place] [address] [address] [place] [address] (Wo rk) Social History Tobacco [...] Tacrolimus level (06/17/2014 8:05 AM CDT) [facility] gist Method Time Signature Tacrolimus Last 06/16/14 [facility] Dose 2000 [facility] Tacrolimus 6.5 5.0 - [facility] Level 15.0 ug/L [facility] Comment: Tacrolimus Reference Range Kidney [...] Phon e Number [facility] 500 [place] [address] [facility] LABS Tacrolimus level (06/10/2014 7:52 AM CDT) [facility] gist Method Time Signature Tacrolimus Last 1999 [facility] Dose 06/09/14 [facility] LABS Tacrolimus 7.9 5.0 - [facility] Level 15.0 ug/L [place] [...] Phon e Number [facility] 500 [place] [address] [facility] LABS Tacrolimus level (06/05/2014 8:28 AM CDT) [facility] gist Method Time Signature Tacrolimus Last 1999 [facility] Dose 06/04/14 [facility] LABS Tacrolimus 7.9 5.0 - [facility] Level 15.0 ug/L [place] [...] City/[facility]/ZIP Code Phon e Number [facility] [address] LABS Tacrolimus level (05/24/2014 8:05 AM CDT) [facility] gist Method Time Signature Tacrolimus 05/23/14 [facility] Last Dose 20:00 [facility] LABS Tacrolimus Test 5.0 - [facility] Level canceled - 15.0 ug/L [place] Lab order CAMPUS LABS entry error Specimen Anatomical Collection Method Collection Time Receive d Time (Source) Location / / Volume Laterality 05/24/2014 8:05 AM 4 2:49 CDT PM CDT Deysi Alicea MD LAB - BLOOD ORDERABLES Performing Organization Address City/[facility]/ZIP Code Phon e Number [facility] [address] LABS Tacrolimus level (05/24/2014 8:05 AM CDT) [facility] gist Method Time Signature Tacrolimus Last 05/23/14 [facility] Dose 20:00 [facility] LABS Tacrolimus 5.8 5.0 - [facility] Level 15.0 ug/L [place] [...] Phon e Number [facility] [address] LABS documented in this encounter Visit Diagnoses Not on filedocumented in this encounter Care Teams Clay Machine Operator Relationship Specialty Start Date End Date Momo Forbes PCP - General Family Practice 01/02/14 [facility] [address] [place] [address] Ingrid Santana, RN Registered Nurse Transplant 02/10/12 documented as of this encounter
--- OUTSIDE RECORDS SUMMARY | 2022-07-05 14:46 | XMS_ITS | Encounter Summary ---
:1950 Author Organization [place] Address [facility] [place] [address] Care Team Providers Name Role Phone Ingrid Santana RN Unavailable Unavailable Momo Forbes Primary Care Provider Encounter Details Date Type Department Care Team Description 05/27/2014 Orders Only Nephrology Shiva Kahn RN -donor kidney 2nd Floor, Clinic 2A [facility] transplant recipient Tommy Ruizfelisa [address] [place] [phone] Social History Tobacco Use Types Packs/Day Years [...] transplant documented in this encounter Care Teams Wad Blanking Press Adjuster Relationship Specialty Start Date End Date Momo Forbes PCP - General Family Practice 01/02/[address] [address] Ingrid Santana RN Registered Nurse Transplant 02/10/12 documented as of this encounter
--- OUTSIDE RECORDS SUMMARY | 2022-07-05 14:47 | XMS_ITS | Encounter Summary ---
:1950 Author Organization [place] Address [address] [place] [address] Care Team Providers Name Role Phone Ingrid Santana RN Unavailable Unavailable Momo Forbes Primary Care Provider Encounter Details Date Type Department Care Team Description 03/11/2014 Anesthesia Event [facility] Aly Esquivel MD PeriOp Services 420 [facility] 500 [facility] 294 [place] [address] [place] [address] [phone] (Wo rk) Anesthesia Record Procedure Summary Procedure [...] benefits and alternatives discussed with: patient or real estate representative. Possibility of blood products discussed. Procedures [...] on filedocumented in this encounter Care Teams Pals Nurse Relationship Specialty Start Date End Date Momo Forbes PCP - General Family Practice 01/02/[address] [address] Ingrid Santana, RN Registered Nurse Transplant 02/10/12 documented as of this encounter
--- OUTSIDE RECORDS SUMMARY | 2022-07-05 14:47 | XMS_ITS | Encounter Summary ---
:1950 Author Organization [place] Address [facility] [place] [address] Care Team Providers Name Role Phone Ingrid Santana RN Unavailable Unavailable Momo Forbes Primary Care Provider Encounter Details Date Type Department Care Team Description 03/14/2014 Orders Only Nephrology Shiva Kahn RN -donor kidney 2nd Floor, Clinic 2A [facility] transplant recipient Tommy Ruizfelisa [address] [place] [phone] Social History Tobacco Use Types Packs/Day Years [...] transplant documented in this encounter Care Teams Sterilisation Technician Relationship Specialty Start Date End Date Momo Forbes PCP - General Family Practice 01/02/[address] [address] Ingrid Santana RN Registered Nurse Transplant 02/10/12 documented as of this encounter
--- OUTSIDE RECORDS SUMMARY | 2022-07-05 14:47 | XMS_ITS | Encounter Summary ---
:1950 Author Organization [place] Address [address] [place] [address]. [place] [address] Care Team Providers Name Role Phone Ingrid Santana RN Unavailable Unavailable Momo Forbes Primary Care Provider Encounter Details Date Type Department Care Team Description 03/11/2014 Orders Only Transplant Surgery Celina Cole (Primary Clinic A, Dx) 2nd Floor, Clinic 2A [address] [place] [address] [address] [facility] [place] [address] Social History Tobacco Use Types [...] channels documented in this encounter Care Teams Back Pad Inspector Relationship Specialty Start Date End Date Momo Forbes PCP - General Family Practice 01/02/14 [facility] 1999 [place] [address] Ingrid Santana RN Registered Nurse Transplant 02/10/12 documented as of this encounter
--- OUTSIDE RECORDS SUMMARY | 2022-07-05 14:47 | XMS_ITS | Encounter Summary ---
:1950 Author Organization [place] Address [facility] [place] [address] Care Team Providers Name Role Phone Ingrid Santana RN Unavailable Unavailable Momo Forbes Primary Care Provider Encounter Details Date Type Department Care Team Description 03/18/2014 Orders Only Nephrology Shiva Kahn RN -donor kidney 2nd Floor, Clinic 2A [facility] transplant recipient Tommy Ruizfelisa [address] [place] [phone] Social History Tobacco Use Types Packs/Day Years [...] transplant documented in this encounter Care Teams Aerial Hurricane Hunter Relationship Specialty Start Date End Date Momo Forbes PCP - General Family Practice 01/02/[address] [address] Ingrid Santana RN Registered Nurse Transplant 02/10/12 documented as of this encounter
--- OUTSIDE RECORDS SUMMARY | 2022-07-05 14:47 | XMS_ITS | Encounter Summary ---
:1950 Author Organization [place] Address [address] [place] [address]. [place] [address] Care Team Providers Name Role Phone Ingrid Santana RN Unavailable Unavailable Momo Forbes Primary Care Provider Encounter Details Date Type Department Care Team Description 02/18/2014 Orders Only Nephrology Shiva Kahn, -donor kidney transp lant recipient (Primary Dx); 2nd Floor, Clinic 2A RN High risk medications (not anticoagulant s) long-term use; Tommy Wilburn [facility] CATY HIGGINS intermediate teacher (current) use of anticoagulant s [place] [id number] [place] [phone] Social History Tobacco Use Types Packs/Day Years [...] for long-term (current) use of other medications intermediate teacher (current) use of anticoagulant s Long-term (current) use of anticoagulant s documented in this encounter Care Teams Teacher Of The Hearing Impaired Relationship Specialty Start Date End Date Momo Forbes PCP - General Family Practice 01/02/14 [facility] [address] [place], [place] [phone] Ingrid Santana, RN Registered Nurse Transplant 02/10/12 documented as of this encounter
--- OUTSIDE RECORDS SUMMARY | 2022-07-05 14:47 | XMS_ITS | Encounter Summary ---
:1950 Author Organization [place] Address [address] [place] [address] Care Team Providers Name Role Phone Ingrid Santana RN Unavailable Unavailable Momo Forbes Primary Care Provider Reason for Visit Reason Onset Date Comments Refill Request 03/04/2014Aug Encounter Details Date Type Department Care Team Description 03/04/2014 Refill The Transplant Kaitlynn Moreno MD Refill Request 2nd Floor, Clinic 2A [facility] ([facility]) [address] [phone] [place], [place] [phone] (Wo rk) [address] [phone] Social History Tobacco Use Types Packs/Day Years [...] Jantoven Last Fill Date: 02/08/14 Quantity: 60 Micheal Jackson [facility] [phone] documented in this encounter Plan of Treatment Not on filedocumented as of this encounter Visit Diagnoses Diagnosis Atrial fibrillation (H) Atrial fibrillation documented in this encounter Care Teams Gunstock Spray Unit Adjuster Relationship Specialty Start Date End Date Momo Forbes PCP - General Family Practice 01/02/14 [facility] [address] [place] [phone] Ingrid Santana, RN Registered Nurse Transplant 02/10/12 documented as of this encounter
--- OUTSIDE RECORDS SUMMARY | 2022-07-05 14:47 | XMS_ITS | Encounter Summary ---
:1950 Author Organization [place] Address [address] [place] [address] Care Team Providers Name Role Phone Ingrid Santana RN Unavailable Unavailable Momo Forbes Primary Care Provider Encounter Details Date Type Department Care Team Description 03/22/2014 Orders Only [facility], Joseph Con[facility], [facility] jm [place] [address] [phone] [place] [address] 856 [place] [address] (Wo rk) Social History Tobacco [...] Results Tacrolimus level (04/19/2014 8:40 AM CDT) [facility] Method Time Signature Tacrolimus Not Provided [facility] Last Dose [facility] Tacrolimus 10.3 5.0 - [facility] Level 15.0 ug/L [facility] Comment: Tacrolimus Reference Range Kidney [...] Phon e Number [facility] [address] [place], [place] [phone] [place] [address] [facility] Tacrolimus level (04/16/2014 8:22 AM CDT) [facility] gist Method Time Signature Tacrolimus Not Provided [facility] Last Dose [facility] Tacrolimus 9.1 5.0 - [facility] Level 15.0 ug/L [facility] Comment: Tacrolimus Reference Range Kidney [...] Phon e Number [facility] [address] [place], [place] [phone] [place] [address] [facility] Tacrolimus level (04/11/2014 8:40 AM CDT) [facility] gist Method Time Signature Tacrolimus Last 04/10/14 [facility] Dose 19:00 [facility] Tacrolimus 14.4 5.0 - [facility] Level 15.0 ug/L [facility] Comment: Tacrolimus Reference Range Kidney [...] Phon e Number [facility] [address] [place] [address] [facility] Tacrolimus level (04/09/2014 8:45 AM CDT) [facility] gist Method Time Signature Tacrolimus Last 04/08/14 [facility] Dose 2000 [facility] Tacrolimus 11.7 5.0 - [facility] Level 15.0 ug/L [facility] Comment: Tacrolimus Reference Range Kidney [...] Phon e Number [facility] [address] [place], [place] [phone] [place] [address] [facility] Tacrolimus level (04/05/2014 9:40 AM CDT) [facility] gist Method Time Signature Tacrolimus Last 1999 [facility] Dose 04/04/14 [facility] Tacrolimus 9.7 5.0 - [facility] Level 15.0 ug/L [facility] Comment: Tacrolimus Reference Range Kidney [...] Phon e Number [facility] [address] [place] [address] [facility] (ABNORMAL) Tacrolimus level (03/28/2014 8:30 AM CDT) [facility] gist Method Time Signature Tacrolimus Last 03/27/14 [facility] Dose 1900 [facility] Tacrolimus 15.8 (H) 5.0 - [facility] Level 15.0 ug/L [facility] Comment: Tacrolimus Reference Range Kidney [...] Phon e Number [facility] [address] [place] [address] [facility] Tacrolimus level (03/26/2014 9:18 AM CDT) [facility] gist Method Time Signature Tacrolimus Last 03/25/14 [facility] Dose 1900 [facility] Tacrolimus 9.2 5.0 - [facility] Level 15.0 ug/L [facility] Comment: Tacrolimus Reference Range Kidney [...] Phon e Number [facility] [address] [place], [place] [phone] [place] [address] [facility] Tacrolimus level (03/14/2014 9:00 AM CDT) [facility] gist Method Time Signature Tacrolimus Last 1999 [facility] Dose 03/13/14 [facility] Tacrolimus 9.5 5.0 - [facility] Level 15.0 ug/L [facility] Comment: Tacrolimus Reference Range Kidney [...] Organization Address City/State/ZIP Code Phon e Number [id number] [place] [address] LABS documented in this encounter Visit Diagnoses Not on filedocumented in this encounter Care Teams Preanalytics Team Lead Relationship Specialty Start Date End Date Momo Forbes PCP - General Family Practice 01/02/14 [facility] [address] [place] [address] Ingrid Santana, RN Registered Nurse Transplant 02/10/12 documented as of this encounter
--- OUTSIDE RECORDS SUMMARY | 2022-07-05 14:47 | XMS_ITS | Encounter Summary ---
:1950 Author Organization [place] Address [facility] [place] [address] Care Team Providers Name Role Phone Ingrid Santana RN Unavailable Unavailable Momo Forbes Primary Care Provider Encounter Details Date Type Department Care Team Description 03/01/2014 Orders Only Nephrology Shiva Kahn RN -donor kidney 2nd Floor, Clinic 2A [facility] transplant recipient Tommy Ruizfelisa [address] [place] [phone] Social History Tobacco Use Types Packs/Day Years [...] documented in this encounter Care Teams Consumer Loan Officer Relationship Specialty Start Date End Date Momo Forbes PCP - General Family Practice 01/02/[address] [address] Ingrid Santana RN Registered Nurse Transplant 02/10/12 documented as of this encounter
--- OUTSIDE RECORDS SUMMARY | 2022-07-05 14:47 | XMS_ITS | Encounter Summary ---
:1950 Author Organization [place] Address [address] [place] [address] Care Team Providers Name Role Phone Ingrid Santana RN Unavailable Unavailable Momo Forbes Primary Care Provider Reason for Visit Reason Onset Date Comments Previsit 02/20/2014 Encounter Details Date Type Department Care Team Description 02/20/2014 Telephone Transplant Surgery C nanda Merchant, Migel Evans MD Previsit 2nd Floor, Clinic 2A [address] [address] [facility] [place] [phone] Social History Tobacco Use Types Packs/Day Years [...] on filedocumented in this encounter Care Teams Loader Relationship Specialty Start Date End Date Momo Forbes PCP - General Family Practice 01/02/14 [facility] [address] [place] [phone] Ingrid Santana, RN Registered Nurse Transplant 02/10/12 documented as of this encounter
--- OUTSIDE RECORDS SUMMARY | 2022-07-05 14:47 | XMS_ITS | Encounter Summary ---
:1950 Author Organization [place] Address [address] [place] [address] Care Team Providers Name Role Phone Ingrid Santana RN Unavailable Unavailable Momo Forbes Primary Care Provider Reason for Visit Reason Onset Date Comments Transplant 03/08/2014 Elevated tacrolimus level Encounter Details Date Type Department Care Team Description 03/08/2014 Telephone Nephrology Jeff Giordano (Elevated 2nd Floor, Clinic 2A Almita Palomino RN tacrolimus level) Tommy [place] [address] [phone] Social History Tobacco Use Types Packs/Day Years [...] repeat the level. Leonor Giordano R.N. - [phone] documented in this encounter Plan of Treatment Not on filedocumented as of this encounter Visit Diagnoses Not on filedocumented in this encounter Care Teams Channel Marketing Manager Relationship Specialty Start Date End Date Momo Forbes PCP - General Family Practice 01/02/[address] [address] Ingrid Santana, RN Registered Nurse Transplant 02/10/12 documented as of this encounter
--- OUTSIDE RECORDS SUMMARY | 2022-07-05 14:47 | XMS_ITS | Encounter Summary ---
:1950 Author Organization [place] Address [address] [place] [address] Care Team Providers Name Role Phone Ingrid Santana RN Unavailable Unavailable Momo Forbes Primary Care Provider Reason for Visit Reason Onset Date Comments Anticoagulation 03/29/2014 Encounter Details Date Type Department Care Team Description 03/29/2014 Telephone [facility] Mary Sheffield RN Anticoagulation Anticoagulation Clin [place] [phone] Social History Tobacco Use Types Packs/Day [...] \this patient. He has INRs done at [facility] He takes Warfarin 5 mg daily He developed Afib after surgery . He sees cardiologylater this month to determine if the Warfarin can be stopped. He is having a stent removed on Tuesday04/01/14 Spoke with the Oncall Dr Perez no need to stop Warfarin INR yesterday at [facility] was 1[address] Kahn Instructed patient's to give 7.5 mg tonight and then 5 mg Sat , Sun Conservative increase since we do not know how quickly he responds. He is having the procedure on Tuesday. documented in this encounter Plan of Treatment Not on filedocumented as of this encounter Visit Diagnoses Not on filedocumented in this encounter Care Teams Laborer/Grade Check Relationship Specialty Start Date End Date Momo Forbes PCP - General Family Practice 01/02/[address] [address] Ingrid Santana, RN Registered Nurse Transplant 02/10/12 documented as of this encounter
--- OUTSIDE RECORDS SUMMARY | 2022-07-05 14:47 | XMS_ITS | Encounter Summary ---
:1950 Author Organization [place] Address [address] [place] [address] Care Team Providers Name Role Phone Ingrid Santana RN Unavailable Unavailable Momo Forbes Primary Care Provider Encounter Details Date Type Department Care Team Description 02/19/2014 Orders Only [facility], Joseph Conor [facility] jm [place] [address] [phone] [place] [address] 435 [place] [address] (Wo rk) Social History Tobacco [...] Results Tacrolimus level (03/19/2014 9:05 AM CDT) [facility] Method Time Signature Tacrolimus Last 03/18/14 [facility] Dose 2100 [facility] Tacrolimus 13.1 5.0 - [facility] Level 15.0 ug/L [facility] [...] e Number [facility] 500 [place] [address] [facility] Tacrolimus level (03/12/2014 9:40 AM CDT) [facility] gist Method Time Signature Tacrolimus Not Provided [facility] Last Dose [facility] Tacrolimus 7.3 5.0 - [facility] Level 15.0 ug/L [facility] [...] e Number [facility] 500 [place] [address] [facility] Tacrolimus level (03/08/2014 10:15 AM CDT) [facility] gist Method Time Signature Tacrolimus Last 03/07/14 [facility] Dose 2000 [facility] Tacrolimus 6.1 5.0 - [facility] Level 15.0 ug/L [facility] [...] e Number [facility] [address] [place], [place] [phone] [place] [address] [facility] Tacrolimus level (03/06/2014 5:13 PM CDT) [facility] gist Method Time Signature Tacrolimus Last 1400 [facility] Dose 03/05/14 [facility] Tacrolimus 11.3 5.0 - [facility] Level 15.0 ug/L [facility] [...] e Number [facility] 500 [place] [address] [facility] Tacrolimus level (03/01/2014 8:10 AM CDT) [facility] gist Method Time Signature Tacrolimus Last 02/28/14 [facility] Dose 1930 [facility] Tacrolimus 10.6 5.0 - [facility] Level 15.0 ug/L [facility] [...] e Number [facility] 500 [place], [place] [phone] [place] [address] [facility] Tacrolimus level (02/27/2014 8:15 AM CDT) [facility] gist Method Time Signature Tacrolimus Last 02/26/14 [facility] Dose 2000 [facility] Tacrolimus 11.4 5.0 - [facility] Level 15.0 ug/L [facility] [...] e Number [facility] 500 [place], [place] [phone] [place] [address] LABS HLA Lukasz Class II Single Antigen (02/25/2014 10:43 AM CDT) Component Value Ref Test Analysis Performed At [facility] Range Method Time Signature SA2 Test SA [...] e Number [facility] Immunology/Histocompatabil [place], [place] [address] [facility] 500 [facility] [address] Building, Room 3-580 HISTOTRAC HLA Lukasz Class I Single Antigen (02/25/2014 10:43 AM CDT) Component Value Ref Test Analysis Performed At [facility] [employer] Software Range Method Time Signature SA1 Test SA [...] LAB - IMMUNOLOGY ORDERABLES Performing Organization Address City/[facility]/ZIP Code Phon e Number [facility] Immunology/[place], [place] [address] [facility] 500 [facility] [address] [facility], Room 3-580 HISTOTRAC PRA Interfering Substance SCR (02/25/2014 10:43 AM CDT) Component Value Ref Test Analysis Performed At [facility] [employer] Method Time Signature Interfering Luminex HISTOTRAC Substance [...] LAB - IMMUNOLOGY ORDERABLES Performing Organization Address City/[facility]/ZIP Code Phon e Number [facility] Immunology/[place], [place] [address] [facility] 500 [facility] [address] [facility], Room 3-580 HISTOTRAC Tacrolimus level (02/21/2014 8:45 AM CDT) [facility] [employer] Method Time Signature Tacrolimus Last 02/20/14 [facility] Dose 2000 [facility] Tacrolimus 7.9 5.0 - [facility] Level 15.0 ug/L [facility] [...] e Number [facility] 500 [place] [address] [facility] LABS documented in this encounter Visit Diagnoses Not on filedocumented in this encounter Care Teams Cable Television Technician Relationship Specialty Start Date End Date Momo Forbes PCP - General Family Practice 01/02/14 [place] [phone] Ingrid Santana, RN Registered Nurse Transplant 02/10/12 documented as of this encounter
--- OUTSIDE RECORDS SUMMARY | 2022-07-05 14:47 | XMS_ITS | Encounter Summary ---
:1950 Author Organization [place] Address [facility] [place] [address] Care Team Providers Name Role Phone Ingrid Santana RN Unavailable Unavailable Momo Forbes Primary Care Provider Reason for Visit Reason Onset Date Comments Pt. Information/instruction 03/14/2014 Encounter Details Date Type Department Care Team Description 03/14/2014 Telephone [facility] Beto Womack Pt . Interventional Radio martha Dangelo RN Information/instructio 500 [place] [phone] Social History Tobacco Use Types Packs/Day Years [...] filedocumented in this encounter Care Teams Cyber Special Agent Relationship Specialty Start Date End Date Momo Forbes PCP - General Family Practice 01/02/14 [facility] [address] [place] [address] Ingrid Santana RN Registered Nurse Transplant 02/10/12 documented as of this encounter
--- OUTSIDE RECORDS SUMMARY | 2022-07-05 14:47 | XMS_ITS | Encounter Summary ---
:1950 Author Organization [place] Address [address] [place] [address] Care Team Providers Name Role Phone Ingrid Santana RN Unavailable Unavailable Momo Forbes Primary Care Provider Reason for Visit Auth/Cert - Closed Specialty Diagnoses / Procedures Referred By Contact Refer red To Contact Surgery Diagnoses S/P Kidney Transplant U[facility] Periop Procedures COMBINED CYSTOSCOPY, REMOVE STENT(S) 500 [place] [address] Phone: Fax: Referral ID Status Reason Start Date Expiration Date Visits Requ ested Visits Authorized [id number] Closed 1 1 Encounter Details Date Type Department Care Team Description 04/01/2014 Hospital Encounter [facility] Mayur, Migel Evans, Same Day Surgery [place] [address] 500 [facility] [address] [place] [phone] [place] [address] (Wo rk) Social History Tobacco Use Types [...] Scott RN - 04/01/2014 10:15 AM CDT [facility], [place] Same-Day Surgery Adult Discharge Orders & Instructions [...] To contact a doctor, call or: ??? [phone] and ask for the resident electron beam welding machine operator for (answered 24 hours a day) ??? Emergency Department: [facility]: [phone] (TTY for hearing impaired: [phone]) documented in this encounter Medications at Time [...] Component Value Ref Test Analysis Performed At [facility] gist Range Method Time Signature Specimen Unspecified [facility] Urine CAMPUS LABS Special Specimen [facility] [...] Organization Address City/State/ZIP Code Phon e Number [address] [facility] MICROBIOLOGY (ABNORMAL) UA with Microscopic (04/01/2014 9:00 AM CDT) Component Value Ref Test Analysis [facility]formed At [facility] gist Range Method Time Signature Color Urine Yellow [facility]S Appearance Urine Clear [facility] Glucose Urine 30 (A) NEG [facility] mg/dL UN[facility]AMP[facility] LABS Bilirubin Urine Negative NEG [facility] Ketones Urine Negative NEG [facility] mg/dL [facility]AMP[facility] LAB[facility] Specific Orestes 1.017 1.003 - [facility] Urine 1.035 [facility] Blood Urine Moderate (A) NEG [facility] pH Urine 6.0 5.0 - [facility] 7.0 pH [facility] [place] [facility] Protein Albumin 10 (A) NEG [facility] Urine mg/dL [facility] [place] [facility] Urobilinogen Normal 0.0 - [facility] mg/dL 2.0 [place] mg/dL [facility] Nitrite Urine Negative NEG [facility] Leukocyte Negative NEG [facility] Esterase Urine [facility] [place] [facility] Source Unspecified [facility] Urine [facility]AMPUS [...] LAB - URINE ORDERABLES Performing Organization Address City/[facility]/ZIP Code Phon e Number [address] LABS (ABNORMAL) INR (04/01/2014 8:36 AM CDT) P athologist Signature INR 1.64 (H) 0.86 - 1.14 [facility] LABS Specimen Anatomical Collection Method Collection Time Receive d Time (Source) Location / / Volume Laterality Blood specimen 04/01/2014 8:36 AM 014 8:41 (specimen) CDT AM CDT Momo Jimenez MD LAB - BLOOD ORDERABLES Performing Organization Address City/[facility]/ZIP Code Phon e Number [facility] [address] LABS EKG 12-lead, tracing only (04/01/2014 8:28 AM CDT) Patholo gist Method Time Signature Interpretation ECG Click View RADIOLOGY Image link RESULTS to view waveform and result Specimen (Source) Anatomical Collection Method Collection Time Re ceived Time Location / / Volume Laterality 04/01/2014 8:28 AM CDT Momo Jimenez MD ECG ORDERABLES Performing Organization Address City/[facility]/ZIP Code Phon e Number RADIOLOGY RESULTS Potassium (04/01/2014 8:11 AM CDT) athologist Signature Potassium 4.1 3.4 - 5.3 [facility] mmol/L [place] LABS Specimen Anatomical Collection Method Collection Time Receive d Time (Source) Location / / Volume Laterality Blood specimen 04/01/2014 8:11 AM 014 8:27 (specimen) CDT AM CDT Momo Jimenez MD LAB - BLOOD ORDERABLES Performing Organization Address [facility]/ZIP Code Phon e Number [address] LABS (ABNORMAL) Hemoglobin (04/01/2014 8:11 AM CDT) athologist Signature Hemoglobin 10.2 (L) 13.3 - [facility] 17.7 g/dL [place] LABS Specimen Anatomical Collection Method Collection Time Receive d Time (Source) Location / / Volume Laterality Blood specimen 04/01/2014 8:11 AM 014 8:27 (specimen) CDT AM CDT Momo Jimenez MD LAB - BLOOD ORDERABLES Performing Organization Address City/[facility]/ZIP Code Phon e Number [address] LABS (ABNORMAL) Glucose by meter (04/01/2014 8:02 AM CDT) athologist Signature Glucose 158 (H) 60 - 99 POINT OF CARE mg/dL TEST, GLUCOSE Specimen Anatomical Collection Method Collection Time Receive d Time (Source) Location / / Volume Laterality 04/01/2014 8:02 AM 4 8:05 CDT AM CDT Migel Merchant MD LAB - BEAKER POCT Performing Organization Address City/[facility]/ZIP Code Phon e Number [facility] POINT OF CARE TEST, GLUCOSE POINT OF CARE TEST, GLUCOSE documented in this encounter Visit Diagnoses Not on filedocumented in this encounter Active and Recently Administered Medications Times are shown in CDT. Scheduled Medication Order 03/30/2014 03/31/2014 04/01/2014 levofloxacin (LEVAQUIN) IVPB 500 mg (COMPLETED) 0850 (Given - Provider: Addis Brannon APRN BOOKKEEPING ASSISTANT - Comment: Asked by Fellow to give [...] Intra-procedure documented in this encounter Care Teams Roof Panel Hanger Relationship Specialty Start Date End Date Momo Forbes PCP - General Family Practice 01/02/14 [place] [phone] Ingrid Santana, RN Registered Nurse Transplant 02/10/12 documented as of this encounter
--- OUTSIDE RECORDS SUMMARY | 2022-07-05 14:47 | XMS_ITS | Encounter Summary ---
:1950 Author Organization [place] Address [address] [place] [address]. [place] [address] Care Team Providers Name Role Phone Ingrid Santana RN Unavailable Unavailable Momo Forbes Primary Care Provider Encounter Details Date Type Department Care Team Description 03/13/2014 Orders Only Nephrology Shiva Kahn, Atrial fibrillation (H); 2nd Floor, Clinic 2A RN -donor kidney transplant recipie nt Tommy Wilburn [address] [phone] [phone] Social History Tobacco Use Types Packs/Day Years [...] transplant documented in this encounter Care Teams Horticultural Manager Relationship Specialty Start Date End Date Momo Forbes PCP - General Family Practice 01/02/14 [facility] [address] [place] [address] Ingrid Santana RN Registered Nurse Transplant 02/10/12 documented as of this encounter
--- OUTSIDE RECORDS SUMMARY | 2022-07-05 14:47 | XMS_ITS | Encounter Summary ---
:1950 Author Organization [place] Address [address] [facility] [place] [address] Care Team Providers Name Role Phone Ingrid Santana RN Unavailable Unavailable Momo Forbes Primary Care Provider Reason for Visit Reason Comments Surgical Followup kidney tx 02/02/14 Encounter Details Date Type Department Care Team Description 02/25/2014 Office Visit Transplant Surgery Finger, Migel Hypophosp hatemia (Primary Dx); Clinic MD Nathan Kidney replaced by transplant; 2nd Floor, Clinic [address]A [address] [place] [address] -donor kidney transp lant recipient; [address] 1 95 High risk medications (not anticoagulant s) long-term use; Building detention (current) use of anticoagulant s; [address] [place], [place]; [place] [address] Orthostatic hypotension [facility] [address] [place], [place] (Work) [address] Social History Tobacco Use [...] Somewhat lethargic. Otherwise well Abd mod obesity. Hennessey in place. Drain with small amt of [...] will give mag and phos prescription. 5. Hennessey - Out today 6 Drain -- out [...] sults (not anticoagulants) section . long-term use termite inspector (current) use of anticoagulants PHOSPHORUS Routine 02/25/2014 [...] 4 1:40 CDT PM CDT [facility] POCT Performing Organization Address City/State/ZIP Code Phon e Number FV POINT OF CARE TEST, GLUCOSE POINT OF CARE TEST, GLUCOSE BK virus PCR quantitative (02/25/2014 10:54 AM CDT) Component Value Ref Test Analysis Performed At Patholo gist Range Method Time [facility] BK Virus DNA Plasma, EDTA [facility] Quant Source anticoagulant [facility] BK Virus DNA <390 [facility] Quant Unit: cpy/mL [facility] Copy/mL [place] [facility] BK Virus DNA <2.6 [facility] Quant Log Unit: log [place] (Note) [place] [facility] INTERPRETIVE INFORMATION: BK Virus, Quantitation by [...] methodologies. Test developed and characteristics determined by [employer]. See Compliance Statement A: [employer]/ BK Virus DNA Not Detected [facility] Quant Interp Reference range: Not Detected [place] (Note) [place] [facility] Performed by [employer], [address] [place] [id number] [email or web address], Kj Mcmillan MD, Lab. Director Specimen Anatomical Collection Method Collection Time Receive d Time (Source) Location / / Volume Laterality Blood specimen 02/25/2014 10:54 4 (specimen) AM CDT 10:55 AM CDT Deysi Alicea MD LAB - MICRO GENERAL ORDERABL ES Performing Organization Address City/State/ZIP Code Phon e Number [id number] [place] [address] LABS Immunology recipient: SOT PRA (Post Tx for Donor Spec Antibody) (02/25/2014 10:54 AM CDT) [facility] Method Time Signature Immunology PRA [facility] Test Name [facility] Immunology Specimen [facility] Result received - [facility] LABS report to follow upon completion. Specimen Anatomical Collection Method Collection Time Receive d Time (Source) Location / / Volume Laterality Blood specimen 02/25/2014 10:54 4 (specimen) AM CDT 10:55 AM CDT Deysi Alicea MD LAB - IMMUNOLOGY ORDERABLES Performing Organization Address City/State/ZIP Code Phon e Number [facility] [address] LABS (ABNORMAL) INR (02/25/2014 10:53 AM CDT) athologist Signature INR 2.39 (H) 0.86 - 1.14 [facility] LABS Specimen Anatomical Collection Method Collection Time Receive d Time (Source) Location / / Volume Laterality Blood specimen 02/25/2014 10:53 4 (specimen) AM CDT 10:54 AM CDT Migel Merchant MD LAB - BLOOD ORDERABLES Performing Organization Address City/[facility]/ZIP Code Phon e Number [facility] [address] LABS (ABNORMAL) Magnesium (02/25/2014 10:53 AM CDT) athologist Signature Magnesium 1.5 (L) 1.6 - 2.3 [facility] mg/dL [place] [facility] Specimen Anatomical Collection Method Collection Time Receive d Time (Source) Location / / Volume Laterality Blood specimen 02/25/2014 10:53 4 (specimen) AM CDT 10:54 AM CDT Deysi Alicea MD LAB - BLOOD ORDERABLES Performing Organization Address City/[facility]/ZIP Code Phon e Number [facility] [address] LABS (ABNORMAL) Phosphorus (02/25/2014 10:53 AM CDT) athologist Signature Phosphorus 1.3 (L) 2.5 - 4.5 [facility] mg/dL [place] [facility] Specimen Anatomical Collection Method Collection Time Receive d Time (Source) Location / / Volume Laterality Blood specimen 02/25/2014 10:53 4 (specimen) AM CDT 10:54 AM CDT Deysi Alicea MD LAB - BLOOD ORDERABLES Performing Organization Address City/State/ZIP Code Phon e Number [address] LABS Mycophenolic acid (02/25/2014 10:53 AM [...] Phon e Number [facility] [address] [facility] [place] [facility] Tacrolimus level (02/25/2014 10:53 AM CDT) [facility] gist Method Time Signature Tacrolimus 02/24/14 ?1999 [facility] Last Dose CORRECTED ON 02/25 AT 1055: PREVIOUSLY REPORTED 1999 [facility] [place] [facility] Tacrolimus 9.1 5.0 - [facility] Level 15.0 ug/L [facility] Comment: Tacrolimus Reference Range [...] Phon e Number [facility] [address] [place] [address] [facility] LABS (ABNORMAL) Basic metabolic panel (02/25/2014 10:53 AM CDT) [facility] gist Method Time Signature Sodium 137 133 - 144 [facility] mmol/L [facility] Potassium 4.6 3.4 - 5.3 [facility] mmol/L [facility] Chloride 108 94 - 109 [facility] mmol/L [facility] Carbon Dioxide 19 (L) 20 - 32 [facility] mmol/L [facility] [place] [facility] Anion Gap 10 6 - 17 [facility] mmol/L [facility] Glucose 217 (H) 60 - 99 [facility] mg/dL [facility] Urea Nitrogen 13 7 - 30 [facility] mg/dL [facility] Creatinine 1.48 (H) 0.66 - [facility] 1.25 mg/dL [facility] [place] [facility] GFR Estimate 48 (L) >60 [facility] mL/min/1.7 [place] m2 CAMPUS [facility] GFR Estimate If 58 (L) >60 [facility] Black mL/min/1.7 [place] m2 CAMPUS LABS Calcium 9.6 8.5 - 10.4 [facility] mg/dL [facility] Specimen Anatomical Collection Method Collection Time Receive d Time (Source) Location / / Volume Laterality Blood specimen 02/25/2014 10:53 4 (specimen) AM CDT 10:54 AM CDT Deysi Alicea MD LAB - BLOOD ORDERABLES Performing Organization Address City/State/ZIP Code Phon e Number [address] [address] [place] [facility] (ABNORMAL) CBC with platelets differential (02/25/2014 10:53 AM CDT) [facility] gist Method Time Signature WBC 4.9 4.0 - [facility] 11.0 UN[facility]ITY 10e9/L CAMPUS LABS RBC Count 2.67 (L) 4.4 - 5.9 [facility] 10e12/L [facility] Hemoglobin 7.8 (L) 13.3 - [facility] 17.7 g/dL [facility] Hematocrit 23.5 (L) 40.0 - [facility] 53.0 % [facility] MCV 88 78 - 100 [facility] fl [facility] MCH 29.2 26.5 - [facility] 33.0 pg [facility] MCHC 33.2 31.5 - [facility] 36.5 g/dL [facility] RDW 14.3 10.0 - [facility] 15.0 % [facility] Platelet Count 179 150 - 450 [facility] 10e9/L [facility] Diff Method Automated [facility] Method [facility] % Neutrophils 89.4 % [facility] % Lymphocytes 3.9 % [facility] % Monocytes 5.1 % [facility] % Eosinophils 1.2 % [facility] % Basophils 0.2 % [facility] % Immature 0.2 % [facility] Granulocytes [facility] Absolute 4.4 1.6 - 8.3 [facility] Neutrophil 10e9/L [facility] Absolute 0.2 (L) 0.8 - 5.3 [facility] Lymphocytes 10e9/L [facility] Absolute 0.3 0.0 - 1.3 [facility] Monocytes 10e9/L [facility] Absolute 0.1 0.0 - 0.7 [facility] Eosinophils 10e9/L [facility] Absolute 0.0 0.0 - 0.2 [facility] Basophils 10e9/L [facility] Abs Immature 0.0 0 - 0.4 [facility] Granulocytes 10e9/L [facility] Specimen Anatomical Collection Method Collection Time Receive d Time (Source) Location / / Volume Laterality Blood specimen 02/25/2014 10:53 4 (specimen) AM CDT 10:54 AM CDT Deysi Alicea MD LAB - BLOOD ORDERABLES Performing Organization Address City/State/ZIP Code Phon e Number [facility] [address] [place] [address] [facility] documented in this encounter Visit Diagnoses Diagnosis 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 replaced by transplant -donor kidney transplant recipie nt Kidney replaced by transplant High risk medications (not anticoagulant s) long-term use Encounter for long-term (current) use of other medications detention (current) use of anticoagulant s Long-term (current) use of anticoagulant s Hypomagnesemia Disorders of magnesium metabolism Orthostatic hypotension documented in this encounter Care Teams Surface Mount Technology Operator Relationship Specialty Start Date End Date Momo Forbes PCP - General Family Practice 01/02/[address] [address] Ingrid Santana, RN Registered Nurse Transplant 02/10/12 documented as of this encounter
--- OUTSIDE RECORDS SUMMARY | 2022-07-05 14:47 | XMS_ITS | Encounter Summary ---
:1950 Author Organization [place] Address [address] [place] [address] Care Team Providers Name Role Phone Ingrid Santana RN Unavailable Unavailable Momo Forbes Primary Care Provider Reason for Visit Reason Onset Date Comments Pre Visit Planning - Done 03/08/2014 Appointment on 03/11/2014 Encounter Details Date Type Department Care Team Description 03/08/2014 Telephone Nephrology Alexandria Caldera Pre Visit Planning - 2nd Floor, Clinic 2A JATIN Done (Appointment on Tommy Wilburn 03/11/20 14) [address] [address] Social History Tobacco Use [...] bring list of medications. Toldpatient to call [phone] if any questions or needs to reschedule. Alexandria Caldera CMA documented in this encounter Plan of Treatment Not on filedocumented as of this encounter Visit Diagnoses Not on filedocumented in this encounter Care Teams Supervisor Real Estate Office Relationship Specialty Start Date End Date Momo Forbes PCP - General Family Practice 01/02/14 [facility] [address] [place] [address] Ingrid Santana, RN Registered Nurse Transplant 02/10/12 documented as of this encounter
--- OUTSIDE RECORDS SUMMARY | 2022-07-05 14:47 | XMS_ITS | Encounter Summary ---
:1950 Author Organization [place] Address [address] [place] [address] Care Team Providers Name Role Phone Ingrid Santana RN Unavailable Unavailable Momo Forbes Primary Care Provider Encounter Details Date Type Department Care Team Description 03/15/2014 Hospital Encounter [facility] Susy Cole, Lymphocele Unit 2A [facility] [address] [phone] [place], [place] [address] (Wo rk) Social History Tobacco Use Types [...] until healed, wash daily with antibacterial soap. [facility] INTERVENTIONAL RADIOLOGY DEPARTMENT Procedure Physician Andrea Can Date of procedure Telephone numbers: [phone] Tuesday-Tuesday 8:00 am to 4:30 pm [phone] After 4:30 pm Tuesday-Tuesday, Weekends & Holidays. Ask for the Interventional Radiologist pvc monitor. Someone is available 24 hours/day [facility] toll free number: Tuesday-Tuesday 8:00 am [...] CCRN March 15, 2014 9:20 AM Pager: [phone] [facility] - 03/15/2014 8:58 AM CDT Discussed order with Dr Merchant today. He would like drain placement if the fluid appears thin. If itappears to be a hematoma then aspiration only. D/w Farid resident and IR staff doing the case. Thanks [facility] FINANCIAL AIDS OFFICER ([phone]) Jeanette Lopez RN - 03/15/2014 8:14 AM CDT Prepped and consented, INR 1.1 FSBS is 219 documented in this encounter Procedure Notes Drea Glasgow MD - 03/15/2014 9:23 AM CDT Interventional Radiology Brief Post Procedure Note Pre Procedure Diagnosis: perinephric fluid collection Post Procedure Diagnosis: Same Procedure: Aspiration of RLQ fluid collection over the tranplant kidney Proceduralist: Drea Glasgow MD, Andrea Gibbons PA-C Pipe Threading Machine Operator: None Time Out: Prior to [...] Dr. Yossi Cox Resident: Dr. Drea Glasgow Pipe Threading Machine Operator: Andrea Gibbons PA-C. Medications: 1% [...] Dr. Yossi Cox Resident: Dr. Drea Glasgow Pipe Threading Machine Operator: Andrea Gibbons PA-C. Medications: 1% [...] Ref Test Analysis Performed At [facility] Range Method Time Signature Specimen Aspirate [facility] Gram Stain Many PMNs seen [facility] No organisms seen MICROBIOLOGY Micro Report FINAL [facility] Status 03/15/2014 MICROBIOLOGY Specimen Anatomical Collection Method Collection Time Receive d Time (Source) Location / / Volume Laterality 03/15/2014 9:05 AM 4 9:59 CDT AM CDT Celina Cole MD LAB - MICRO GENERAL ORDERABL ES Performing Organization Address City/[facility]/ZIP Code Phon e Number [facility] [address] LABS [facility] MICROBIOLOGY (ABNORMAL) Fluid Culture (03/15/2014 9:05 AM CDT) Component Value Ref Test Analysis Performed At Patholo gist Range Method Time Signature Specimen Aspirate [facility] Description [facility] Culture Micro Light growth Coagulase negat jo Staphylococcus Susceptibility testing not [facility] routinely done MICROBIOLOGY (A) Micro Report FINAL 03/18/2014 [facility] Status MICROBIOLOGY Specimen Anatomical Collection Method Collection Time Receive d Time (Source) Location / / Volume Laterality Fluid specimen SPECIMEN OBTAINED 03/15/2014 9:05 AM 9:59 (specimen) BY ASPIRATION / CDT AM CDT Unknown Celina Cole MD LAB - MICRO GENERAL ORDERABL ES Performing Organization Address City/[facility]/ZIP Code Phon e Number [address] LABS [facility] MICROBIOLOGY Triglyceride Fluid (03/15/2014 9:05 AM CDT) Patholo gist Method Time Signature Triglyceride Aspirate [facility] Fluid Source [facility] Triglyceride 94 mg/dL [facility] Fluid [facility] Comment: No reference ranges have been [...] - BODY FLUIDS ORDERABLES Performing Organization Address City/[facility]/ZIP Code Phon e Number [address] [place] [address] [facility] LABS Cell count with differential fluid (03/15/2014 9:05 AM CDT) Component Value Ref Test Analysis Performed At [facility] Range Method Time Signature Body Fluid Aspirate [facility] Analysis Source [facility] Color Fluid Brown [facility] LABS Appearance Turbid [facility] Fluid [facility] LABS RBC Fluid << Do Not /uL [facility] Report >> [facility] LABS WBC Fluid 19795 /uL [facility] LAB[facility] % Neutrophils 97 % [facility] Fluid [facility] LABS % Lymphocytes 2 % [facility] Fluid [facility] LABS % Eosinophils 1 % [facility] Fluid [facility] LABS Specimen Anatomical Collection Method Collection Time Receive d Time (Source) Location / / Volume Laterality SPECIMEN OBTAINED 03/15/2014 9:05 AM 02/20 9:56 BY ASPIRATION / CDT AM CDT Unknown Celina Cole MD LAB - BODY FLUIDS ORDERABLES Performing Organization Address City/State/ZIP Code Phon e Number [facility] [address] LABS Lactate dehydrogenase fluid (03/15/2014 9:05 AM CDT) Component Value Ref Test Analysis Performed At [facility] Range Method Time Signature LD Fluid Source Aspirate [facility] LABS Lactate Canceled, Test credited [...] [facility] [address] [place], [place] [id number] [place] [address] LABS Creatinine fluid (03/15/2014 9:05 AM CDT) [facility] Method Time Signature Creatinine Aspirate [facility] Fluid Source [facility] Creatinine 1.5 mg/dL [facility] LABS Comment: No reference ranges have been [...] - BODY FLUIDS ORDERABLES Performing Organization Address City/[facility]/ZIP Code Phon e Number [facility] [address] [place] [address] [facility] LABS INR point of care (03/15/2014 [...] [facility]/ZIP Code Phon e Number [facility] POINT OF [...] [facility]/ZIP Code Phon e Number [facility] POINT OF [...] Jeanette Lopez RN) Routine, 3 g, Intravenous, PRE-OP/PRE-OR OCEDURE, Starting on Tue03/15/14 at 0734, For [...] Intra-procedure documented in this encounter Care Teams Performance Reporter Relationship Specialty Start Date End Date Momo Forbes PCP - General Family Practice 01/02/[address] [address] Ingrid Santana, RN Registered Nurse Transplant 02/10/12 documented as of this encounter
--- OUTSIDE RECORDS SUMMARY | 2022-07-05 14:47 | XMS_ITS | Encounter Summary ---
:1950 Author Organization [place] Address [address] [place] [address]. [place] [address] Care Team Providers Name Role Phone Ingrid [...] 12-lead, tracing only (02/18/2014 9:53 AM CDT) [facility] gist Method Time Signature Interpretation [...] in this encounter Care Teams Data Entry Machine Operator Relationship Specialty Start Date End Date Momo Forbes PCP - General Family Practice 01/02/14 [facility] [address] [place] [address] Ingrid Santana, RN Registered Nurse Transplant 02/10/12 documented as of this encounter
--- OUTSIDE RECORDS SUMMARY | 2022-07-05 14:47 | XMS_ITS | Encounter Summary ---
:1950 Author Organization [place] Address [facility] [place] [address] Care Team Providers Name Role Phone Ingrid Santana RN Unavailable Unavailable Momo Forbes Primary Care Provider Reason for Visit Reason Onset Date Comments Patient Reminder 03/26/2014 Encounter Details Date Type Department Care Team Description 03/26/2014 Telephone Nephrology Yesenia Clements LPN Patient Reminder 2nd Floor, Clinic [address]A [address] [phone] Social History Tobacco [...] filedocumented in this encounter Care Teams Welt Stitch Cleaner Relationship Specialty Start Date End Date Momo Forbes PCP - General Family Practice 01/02/14 [facility] [address] [place] [address] Ingrid Santana, RN Registered Nurse Transplant 02/10/12 documented as of this encounter
--- OUTSIDE RECORDS SUMMARY | 2022-07-05 14:47 | XMS_ITS | Encounter Summary ---
:1950 Author Organization [place] Address [address] [place] [address] Care Team Providers Name Role Phone Ingrid Santana RN Unavailable Unavailable Momo Forbes Primary Care Provider Reason for Visit Auth/Cert - Closed Specialty Diagnoses / Procedures Referred By Contact Refer red To Contact Surgery Diagnoses Status Post Kidney Transplant Uu Periop Procedures COMBINED CYSTOSCOPY, REMOVE STENT(S) [address] [place] [address] Phone: Fax: Referral ID Status Reason Start Date Expiration Date Visits Requ ested Visits Authorized [id number] Closed 1 1 Encounter Details Date Type Department Care Team Description 03/11/2014 Hospital Encounter [facility] Migel Merchant, [facility] [address] [facility] [address] [place] [address] [place] [address] (Wo rk) Social History Tobacco Use Types [...] 8:46 CDT AM CDT Migel Merchant MD [facility] POCT Performing Organization Address City/State/ZIP Code Phon e Number [facility] POINT OF CARE TEST, GLUCOSE POINT OF CARE TEST, GLUCOSE documented in this encounter Visit Diagnoses Not on filedocumented in this encounter Active and Recently Administered Medications Care Teams Diesel Dinkey Operator Relationship Specialty Start Date End Date Momo Forbes PCP - General Family Practice 01/02/14 [facility] [address] [place] [address] Ingrid Santana, RN Registered Nurse Transplant 02/10/12 documented as of this encounter
--- OUTSIDE RECORDS SUMMARY | 2022-07-05 14:47 | XMS_ITS | Encounter Summary ---
:1950 Author Organization [place] Address [address] [place] [address]. [place] [address] Care Team Providers Name Role Phone Ingrid Santana RN Unavailable Unavailable Momo Forbes Primary Care Provider Encounter Details Date Type Department Care Team Description 02/18/2014 Orders Only Nephrology Shiva Kahn RN -donor kidney transplant recipie nt (Primary Dx); 2nd Floor, Clinic 2A [facility] Kidney replaced by transplant; Tommy Ruizensteen [address] [facility] kidney transplant Building [address] [place] [phone] Social History Tobacco Use Types Packs/Day Years [...] transplant documented in this encounter Care Teams Application Development Project Manager Relationship Specialty Start Date End Date Momo Forbes PCP - General Family Practice 01/02/14 [facility] [address] [place] [address] Ingrid Santana RN Registered Nurse Transplant 02/10/12 documented as of this encounter
--- OUTSIDE RECORDS SUMMARY | 2022-07-05 14:47 | XMS_ITS | Encounter Summary ---
:1950 Author Organization [place] Address [facility] [place] [address] Care Team Providers Name Role Phone Ingrid Santana RN Unavailable Unavailable Momo Forbes Primary Care Provider Encounter Details Date Type Department Care Team Description 03/19/2014 Orders Only Nephrology Shiva Kahn RN -donor kidney 2nd Floor, Clinic 2A [facility] transplant recipient Tommy Ruizfelisa [address] [place] [phone] Social History Tobacco Use Types Packs/Day Years [...] documented in this encounter Care Teams Business Support Relationship Specialty Start Date End Date Momo Forbes PCP - General Family Practice 01/02/[address] [address] Ingrid Santana RN Registered Nurse Transplant 02/10/12 documented as of this encounter
--- OUTSIDE RECORDS SUMMARY | 2022-07-05 14:47 | XMS_ITS | Encounter Summary ---
:1950 Author Organization [place] Address [address] [place] [address] Care Team Providers Name Role Phone Ingrid Santana RN Unavailable Unavailable Momo Forbes Primary Care Provider Reason for Referral Specialty Diagnoses / Procedures Referred By Contact Refer red To Contact Migel Merchant MD [address] [facility] [address] [place], [place] [address] Referral ID Status Reason Start Date Expiration Date Visits Requ ested Visits Authorized Scheduling Instructions ANTICOAGULATION CLINIC COLLABORATIVE PRA CTICE AGREEMENT The following represents a collaborative practice agreement among the physicians of the Clinic and staff of the Anticoagulat ion Clinic Service ([facility]) Physicians shall: 1. Refer patients requiring anticoagulat ion to a specialty service staffed by personnel of Pharmacy Services and super vised by Clinic physicians. 2. Respond to questions and referrals fr pharmacy staff regarding delinquent or difficult patients. 3. Inform the [facility] staff when a new patie nt [...] Team Description 03/29/2014 Orders Only [facility] Migel Merchanta l fibrillation (H) (Primary Dx); Anticoagulation Clin ic MD Nathan retirement (current) use of anticoagulant s 420 [facility] [address] [facility] [phone] [place] [address] Social History Tobacco Use Types Packs/Day Years [...] Atrial fibrillation (H) - Primary Atrial fibrillation terminal computer operator (current) use of anticoagulant s Long-term (current) use of anticoagulant s documented in this encounter Care Teams Mobile Device Engineer Relationship Specialty Start Date End Date Momo Forbes PCP - General Family Practice 01/02/14 [facility] [address] [place] [address] Ingrid Santana, RN Registered Nurse Transplant 02/10/12 documented as of this encounter
--- OUTSIDE RECORDS SUMMARY | 2022-07-05 14:48 | XMS_ITS | Encounter Summary ---
:1950 Author Organization [place] Address [facility] [place] [address] Care Team Providers Name Role Phone Ingrid Santana RN Unavailable Unavailable Momo Forbes Primary Care Provider Encounter Details Date Type Department Care Team Description 02/02/2014 Results Only LABORATORY RESULTS Miegl Merchant MD [address] [place] [address] 195 [place], [place] [address] (Wo rk) Social History Tobacco Use Types [...] T/B Crossmatch Allo (02/02/2014 6:51 PM CDT) [facility] Method Time Signature Crossmatch Donor:[id number], ?Crossmatch Date:02/02/2014 HISTOTRAC Result (Note) Serum Date [...] Phon e Number [facility] Immunology/Histocompatabil [place], [place] [address] ity [facility] [address], Room 3-580 HISTOTRAC documented in this encounter Visit Diagnoses Not on filedocumented in this encounter Care Teams Scene Shifter Relationship Specialty Start Date End Date Momo Forbes PCP - General Family Practice 01/02/14 [facility] [address] [place] [address] Ingrid Santana, RN Registered Nurse Transplant 02/10/12 documented as of this encounter
--- OUTSIDE RECORDS SUMMARY | 2022-07-05 14:48 | XMS_ITS | Encounter Summary ---
:1950 Author Organization [place] Address [address] [place] [address] Care Team Providers Name Role Phone Ingrid Santana RN Unavailable Unavailable Momo Forbes Primary Care Provider Encounter Details Date Type Department Care Team Description 02/02/2014 Results Only LABORATORY RESULTS Migel Merchant MD 420 [facility] 195 [place], [place] [address] (Wo rk) Social History Tobacco Use Types [...] II Single Antigen (02/02/2014 6:51 PM CDT) [facility] Method Time Signature SA2 Test [...] Phon e Number [facility] Immunology/Histocompatabil [place], [place] [address] [facility] [address] [facility] [address] Building, Room 3-580 HISTOTRAC documented in this encounter Visit Diagnoses Not on filedocumented in this encounter Care Teams Oracle Applications Analyst Relationship Specialty Start Date End Date Momo Forbes PCP - General Family Practice 01/02/14 [facility] [address] [place] [address] Ingrid Santana, RN Registered Nurse Transplant 02/10/12 documented as of this encounter
--- OUTSIDE RECORDS SUMMARY | 2022-07-05 14:48 | XMS_ITS | Encounter Summary ---
:1950 Author Organization [place] Address [facility] [place] [address] Care Team Providers Name Role Phone Ingrid Santana RN Unavailable Unavailable Momo Forbes Primary Care Provider Reason for Visit Reason Comments Eval/Assessment LBA Encounter Details Date Type Department Care Team Description 02/11/2014 Office Visit Specialty Infusion Kaitlynn Leon, Complica tion of transplanted kidney (Primary Dx); and Procedure Center Anemia; [facility] HTN (hy pertension); [facility] Immunosuppression (H); 2nd Floor [address] Hypophosphatemia 6 [facility] [address] [place], [place] [phone] [address] (Work) [phone] Social History Tobacco Use Types Packs/Day Years [...] Years of Education: 14 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 Discharge: 02/08/2014 Using Medcard: Yes Med review: Went over all meds and dosing with patient and Tete. Went over Prograf and Cellcept side effects. Medication questions/concerns: Patient requested that we transfer 4 rx's (to profile) from local pharmacy to us here. Pt wants us to get Zofran filled for bean picker 02/12- new dose of 2 Q6-8H PRN. Using medbox: Yes Viewed DVD: Didn't bring up Pain: #2-3, feels good, rarely using Oxycodone Other Concerns: none No further questions for this pharmacist. Yi Londono [facility] [phone] Electronically signed by Yi Londono [facility] at 02/11/2014 3:35 PM CDT documented in this encounter Plan [...] Signature INR 2.28 (H) 0.86 - 1.14 [facility] LABS Specimen Anatomical Collection Method Collection Time Receive d Time (Source) Location / / Volume Laterality 02/11/2014 9:30 AM 4 9:41 CDT AM CDT Kaitlynn Leon MD LAB - BLOOD ORDERABLES Performing Organization Address City/State/ZIP Code Phon e Number [id number] [place] [address] LABS documented in this encounter Visit Diagnoses Diagnosis Complication of transplanted kidney - Pr imary Complications of transplanted kidney Anemia Anemia, unspecified HTN (hypertension) Unspecified essential hypertension Immunosuppression (H) Unspecified disorder of immune mechanism Hypophosphatemia Disorders of phosphorus metabolism documented in this encounter Care Teams Nailhead Setter Relationship Specialty Start Date End Date Momo Forbes PCP - General Family Practice 01/02/14 [facility] [address] [place] [address] Ingrid Santana, RN Registered Nurse Transplant 02/10/12 documented as of this encounter
--- OUTSIDE RECORDS SUMMARY | 2022-07-05 14:48 | XMS_ITS | Encounter Summary ---
:1950 Author Organization [place] Address [address] [place] [address] Care Team Providers Name Role Phone Ingrid Santana RN Unavailable Unavailable Momo Forbes Primary Care Provider Reason for Referral CV Cardio consult - Closed Specialty Diagnoses / Procedures Referred By Contact Refer red To Contact Diagnoses Atrial fibrillation (H) Kaitlynn Leon MD [facility] [place] [address] [place] [address] Fax: Referral ID Status Reason Start Date Expiration Date Visits Requ ested Visits Authorized [id number] Closed 02/12/2014 08/11/2014 1 1 Reason for Visit Reason Comments RECHECK Encounter Details Date Type Department Care Team Description 02/12/2014 Office Visit Specialty Infusion Kaitlynn Leon, S/P kidn ey transplant (Primary Dx); and Procedure Center Atrial fibrillation (H); [facility] Hypopho sphatemia; Counts include 234 beds at the [facility] Nausea; 2nd Floor [address] Immunosuppression (H) [address] [facility] [address] [place], [place] [phone] [address] (Work) [phone] Social History Tobacco Use Types Packs/Day Years [...] Center Physicians Specialty Infusion and Procedure Center ([facility]) for your transplant cares. [...] 5 mg every evening -Please return to [facility] on for Labs & assessment -Call us or Leandro Kahn with any questions. -Your Home Care Nurse should begin visits on TuesdayFebruary 14. If you do not hear from them by Tuesday morning, try to reach them at [phone]. We look forward in seeing you on your next appointment here at [facility]. Please don???t hesitate to callus at [phone] to reschedule any of your appointments or to speak with one of the [facility] registered nurses. It was a pleasure taking care of you today. 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
--- OUTSIDE RECORDS SUMMARY | 2022-07-05 14:48 | XMS_ITS | Encounter Summary ---
:1950 Author Organization [place] Address [address] [place] [address] Care Team Providers Name Role Phone Ingrid Santana RN Unavailable Unavailable Momo Forbes Primary Care Provider Reason for Visit Reason Onset Date Comments Refill Request 02/12/2014 clotrimazole Encounter Details Date Type Department Care Team Description 02/12/2014 Refill Nephrology Kaitlynn Leon MD Refill Request 2nd Floor, Clinic 2A [facility] (clotrimazole) [address] [phone] Social History Tobacco Use Types Packs/Day Years [...] one month supply. Thanks! Lianne Braswell PharmD [facility] [phone] documented in this encounter Plan of Treatment Not on filedocumented as of this encounter Visit Diagnoses Diagnosis S/P kidney transplant Kidney replaced by transplant documented in this encounter Care Teams Ply Splicer Relationship Specialty Start Date End Date Momo Forbes PCP - General Family Practice 01/02/14 [facility] [address] [place] [address] Ingrid Santana, RN Registered Nurse Transplant 02/10/12 documented as of this encounter
--- OUTSIDE RECORDS SUMMARY | 2022-07-05 14:48 | XMS_ITS | Encounter Summary ---
:1950 Author Organization [place] Address [facility] [place] [address] Care Team Providers Name Role Phone Ingrid Santana RN Unavailable Unavailable Momo Forbes Primary Care Provider Reason for Visit Reason Comments Surgical Followup Post op for kidney transplan t POD 16 Encounter Details Date Type Department Care Team Description 02/18/2014 Office Visit Transplant Surgery Migel Merchant S/P jamari y transplant (Primary Dx); Clinic MD Nathan Postop check; 2nd Floor, Clinic 2A [address] [place] Immunosuppression (H); [facility] 1 95 Atrial fibrillation (H) [phone] [place] [address] [place], [place] (Work) [phone] Social History Tobacco Use [...] fibrillation documented in this encounter Care Teams Kennel Manager Relationship Specialty Start Date End Date Momo Forbes PCP - General Family Practice 01/02/[address] [address] Ingrid Santana, RN Registered Nurse Transplant 02/10/12 documented as of this encounter
--- OUTSIDE RECORDS SUMMARY | 2022-07-05 14:48 | XMS_ITS | Encounter Summary ---
:1950 Author Organization [place] Address Counts include 234 beds at the [facility] [place] [address] Care Team Providers Name Role Phone Ingrid Santana RN Unavailable Unavailable Momo Raines Primary Care Provider Reason for Visit Reason Comments Consult consult for afib Encounter Details Date Type Department Care Team Description 02/18/2014 Office Visit [facility] Joseph Hernandez (H) (Primary Dx) Heart MD 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
--- OUTSIDE RECORDS SUMMARY | 2022-07-05 14:48 | XMS_ITS | Encounter Summary ---
:1950 Author Organization [place] Address [facility] [place] [address] Care Team Providers Name Role Phone Ingrid Santana RN Unavailable Unavailable Momo Forbes Primary Care Provider Reason for Visit Reason Comments Eval/Assessment LBA Encounter Details Date Type Department Care Team Description 02/14/2014 Office Visit Specialty Infusion Edward, Naim S, Kidney r eplaced by transplant (Primary Dx); and Procedure Center Immunosuppression (H); Arpita [facility] Hyperka lemia; [facility] Hypophosphatemia; 2nd Floor [address] Atrial fibrillation (H); [address] [place], [place] Anemia; [place] [address] HTN (hypertension) [place], [place] [phone] [address] (Work) [phone] Social History Tobacco Use Types Packs/Day Years [...] Years of Education: 14 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
--- OUTSIDE RECORDS SUMMARY | 2022-07-05 14:48 | XMS_ITS | Encounter Summary ---
:1950 Author Organization [place] Address [address] [place] [address]. [place] [address] Care Team Providers Name Role Phone Ingrid Santana RN Unavailable Unavailable Momo Forbes Primary Care Provider Reason for Visit Reason Onset Date Comments Refill Request 02/11/2014 Encounter Details Date Type Department Care Team Description 02/11/2014 Refill Nephrology Isa Ly RN Refill Request 2nd Floor, Clinic 2A [place] [phone] Social History Tobacco Use Types Packs/Day [...] transplant documented in this encounter Care Teams Platform Stapler Relationship Specialty Start Date End Date Momo Forbes PCP - General Family Practice 01/02/14 [facility] [address] [place] [address] Ingrid Santana RN Registered Nurse Transplant 02/10/12 documented as of this encounter
--- OUTSIDE RECORDS SUMMARY | 2022-07-05 14:48 | XMS_ITS | Encounter Summary ---
:1950 Author Organization [place] Address [facility] [place] [address] Care Team Providers Name Role Phone Ingrid Santana RN Unavailable Unavailable Momo Forbes Primary Care Provider Encounter Details Date Type Department Care Team Description 02/15/2014 Orders Only Nephrology Shiva Kahn RN Kidney replaced by transplant; 2nd Floor, Clinic 2A [facility] S/P kidney transplant Tommy [address] [phone] Social History Tobacco Use Types Packs/Day Years [...] documented in this encounter Care Teams Sap Pp Consultant Relationship Specialty Start Date End Date Momo Forbes PCP - General Family Practice 01/02/14 [facility] [address] [place] [address] Ingrid Santana RN Registered Nurse Transplant 02/10/12 documented as of this encounter
--- OUTSIDE RECORDS SUMMARY | 2022-07-05 14:48 | XMS_ITS | Encounter Summary ---
:1950 Author Organization [place] Address [address] [place] [address]. [place] [address] Care Team Providers Name Role Phone Ingrid Santana RN Unavailable Unavailable Momo Forbes Primary Care Provider Reason for Visit Reason Comments Transplant Donor culture results Encounter Details Date Type Department Care Team Description 02/04/2014 Documentation Only The Transplant Gladis Yeboah, Transplant (Donor 2nd Floor, Clinic 2A RN culture results) [address] [phone] Social History Tobacco Use Types Packs/Day Years [...] and urine cultures have been uploaded into [employer]. Notification sent to Dr. Rust and Dr. Hernandes. documented in this encounter Plan of Treatment Not on filedocumented as of this encounter Visit Diagnoses Not on filedocumented in this encounter Care Teams Criminal Investigator Customs Relationship Specialty Start Date End Date Momo Forbes PCP - General Family Practice 01/02/14 [facility] [address] [place] [address] Ingrid Santana, RN Registered Nurse Transplant 02/10/12 documented as of this encounter
--- OUTSIDE RECORDS SUMMARY | 2022-07-05 14:48 | XMS_ITS | Encounter Summary ---
:1950 Author Organization [place] Address [facility] [place] [address] Care Team Providers Name Role Phone Ingrid Santana RN Unavailable Unavailable Momo Forbes Primary Care Provider Encounter Details Date Type Department Care Team Description 02/11/2014 Radiant Appointment [facility] 1st Floor, Clinic 1D [place], [place] [address] Social History Tobacco Use Types Packs/Day Years [...] Procedure Name Priority Date/Time Associated Diagnosis Comme [facility] US RENAL TRANSPLANT Routine 02/11/2014 2:48 [...] filedocumented in this encounter Care Teams Roof Truss Detailer Relationship Specialty Start Date End Date Momo Forbes PCP - General Family Practice 01/02/14 [facility] [address] [place] [address] Ingrid Santana, RN Registered Nurse Transplant 02/10/12 documented as of this encounter
--- OUTSIDE RECORDS SUMMARY | 2022-07-05 14:48 | XMS_ITS | Encounter Summary ---
:1950 Author Organization [place] Address [facility] [place] [address] Care Team Providers Name Role Phone Ingrid Santana RN Unavailable Unavailable Momo Forbes Primary Care Provider Encounter Details Date Type Department Care Team Description 02/18/2014 Orders Only The Transplant Deysi Burns, Kidney replaced by transplan t; 2nd Floor, Clinic 2A S/P kidney transplant Arpita [facility] 516 [facility] [address] [place] [address] [address] [place], [place] [id number] [place] [address] (Wo rk) [address] [phone] Social History Tobacco Use Types Packs/Day Years [...] 1.6 - 2.3 [facility] mg/dL [place] [facility] Specimen Anatomical Collection Method Collection Time Receive d Time (Source) Location / / Volume Laterality Blood specimen 02/18/2014 8:56 AM 014 8:57 (specimen) CDT AM CDT Kaitlynn Leon MD LAB - BLOOD ORDERABLES Performing Organization Address City/[facility]/ZIP Code Phon e Number [facility] [address] LABS (ABNORMAL) Phosphorus (02/18/2014 8:56 AM CDT) athologist Signature Phosphorus 1.9 (L) 2.5 - 4.5 [facility] mg/dL [place] [facility] Specimen Anatomical Collection Method Collection Time Receive d Time (Source) Location / / Volume Laterality Blood specimen 02/18/2014 8:56 AM 014 8:57 (specimen) CDT AM CDT Kaitlynn Leon MD LAB - BLOOD ORDERABLES Performing Organization Address City/State/ZIP Code Phon e Number [facility] 500 [place], [place] [phone] [place] [address] LABS Tacrolimus level (02/18/2014 8:56 AM CDT) [facility] gist Method Time Signature Tacrolimus Last 02/12/14 [facility] Dose 1930 [facility] LABS Tacrolimus 14.1 5.0 - [facility] Level 15.0 ug/L [facility] LABS Comment: Tacrolimus Reference Range [...] Phon e Number [facility] 500 [place], [place] [id number] [place] [address] LABS (ABNORMAL) CBC with platelets differential (02/18/2014 8:56 AM CDT) [facility] Method Time Signature WBC 6.3 4.0 - [facility] 11.0 [place] 10e9/L [place] [facility] RBC Count 2.59 (L) 4.4 - 5.9 [facility] 10e12/L [facility] LABS Hemoglobin 7.8 (L) 13.3 - [facility] 17.7 g/dL [facility] LABS Hematocrit 23.7 (L) 40.0 - [facility] 53.0 % [facility] LABS MCV 92 78 - 100 [facility] fl [facility] LABS MCH 30.1 26.5 - [facility] 33.0 pg [facility] LABS MCHC 32.9 31.5 - [facility] 36.5 g/dL [facility] LABS RDW 14.7 10.0 - [facility] 15.0 % [facility] LABS Platelet Count 140 (L) 150 - 450 [facility] 10e9/L [facility] LABS Diff Method Automated [facility] Method [facility] LABS % Neutrophils 84.7 % [facility] LABS % Lymphocytes 3.8 % [facility] LABS % Monocytes 6.0 % [facility] LABS % Eosinophils 4.8 % [facility] LABS % Basophils 0.5 % [facility] LABS % Immature 0.2 % [facility] Granulocytes [facility] LABS Absolute 5.3 1.6 - 8.3 [facility] Neutrophil 10e9/L [facility] LABS Absolute 0.2 (L) 0.8 - 5.3 [facility] Lymphocytes 10e9/L [facility] LABS Absolute 0.4 0.0 - 1.3 [facility] Monocytes 10e9/L [facility] LABS Absolute 0.3 0.0 - 0.7 [facility] Eosinophils 10e9/L [facility] LABS Absolute 0.0 0.0 - 0.2 [facility] Basophils 10e9/L [facility] LABS Abs Immature 0.0 0 - 0.4 [facility] Granulocytes 10e9/L [facility] LABS Specimen Anatomical Collection Method Collection Time Receive d Time (Source) Location / / Volume Laterality Blood specimen 02/18/2014 8:56 AM 014 8:57 (specimen) CDT AM CDT Kaitlynn Leon MD LAB - BLOOD ORDERABLES Performing Organization Address City/State/ZIP Code Phon e Number [phone] [place] [address] LABS (ABNORMAL) Basic metabolic panel (02/18/2014 8:56 AM CDT) [facility] gist Method Time Signature Sodium 141 133 - 144 [facility] mmol/L [facility] LABS Potassium 5.2 3.4 - 5.3 [facility] mmol/L [facility] LABS Chloride 112 (H) 94 - 109 [facility] mmol/L [facility] LABS Carbon Dioxide 18 (L) 20 - 32 [facility] mmol/L [facility] LABS Anion Gap 11 6 - 17 [facility] mmol/L [facility] LABS Glucose 185 (H) 60 - 99 [facility] mg/dL [facility] LABS Urea Nitrogen 24 7 - 30 [facility] mg/dL [facility] LABS Creatinine 1.81 (H) 0.66 - [facility] 1.25 mg/dL [facility] LABS GFR Estimate 38 (L) >60 [facility] mL/min/1.7 [place] m2 CAMPUS LABS GFR Estimate If 46 (L) >60 [facility] Black mL/min/1.7 [place] [address] CAMPUS LABS Calcium 9.4 8.5 - 10.4 [facility] mg/dL [facility] LABS Specimen Anatomical Collection Method Collection Time Receive d Time (Source) Location / / Volume Laterality Blood specimen 02/18/2014 8:56 AM 014 8:57 (specimen) CDT AM CDT Kaitlynn Leon MD LAB - BLOOD ORDERABLES Performing Organization Address City/[facility]/ZIP Code Phon e Number [address] [address] [facility] LABS (ABNORMAL) INR (02/18/2014 8:56 AM CDT) P athologist Signature INR 2.13 (H) 0.86 - 1.14 [facility] LABS Specimen Anatomical Collection Method Collection Time Receive d Time (Source) Location / / Volume Laterality Blood specimen 02/18/2014 8:56 AM 014 8:57 (specimen) CDT AM CDT Kaitlynn Leon MD LAB - BLOOD ORDERABLES Performing Organization Address City/[facility] Code Phon e Number [facility] 500 [place] [address] [facility] LABS documented in this encounter Visit Diagnoses Diagnosis Kidney replaced by transplant S/P kidney transplant Kidney replaced by transplant documented in this encounter Care Teams Mobile Ui Developer Relationship Specialty Start Date End Date Momo Forbes PCP - General Family Practice 01/02/14 [facility] [address] [place] [address] Ingrid Santana, RN Registered Nurse Transplant 02/10/12 documented as of this encounter
--- OUTSIDE RECORDS SUMMARY | 2022-07-05 14:48 | XMS_ITS | Encounter Summary ---
:1950 Author Organization [place] Address [facility] [place] [address] Care Team Providers Name Role Phone Ingrid Santana RN Unavailable Unavailable Momo Forbes Primary Care Provider Reason for Visit Reason Comments Eval/Assessment s/p kidney transplant 8days ago Encounter Details Date Type Department Care Team Description 02/10/2014 Infusion Therapy Specialty Infusion Finger, Migel Mac y replaced by Visit and Procedure MD Nathan transplant (Primary Center [address] [place] [address] Dx) [place] [address] 5 [facility] 2nd Floor [address] [phone] [place], [place] (Work) [phone] Social History Tobacco Use [...] 10:40 AM CDT Diego Guthrie came to [facility] today for a lab and assess 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 Discharge date: 02/08/14 customer services coordinator: Leandro Kahn RN Phone number patient can be reached at: [phone] (girlfriend's cell) Physical Assessment: See physical assessment located under Document Flowsheets. Incision site: stapled, leaking tiny amount clear pink/pale yellow fluid from mid incision (1.5inch area on dressing from 3hours ago) covered with ABD Lines: MARGARET rlq; 30cc out last tamara; 10cc out overnite;; lite pink clear fluid Gibbs: na states is not having voiding difficulty Urine clarity: not asked Hydration: states he [id number] water yesterday but does not like that [...] will follow up with [facility] lab/assess in am 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/Creative Services Coordinator verbalized understanding, all questions answered: YES [...] Results Tacrolimus level (02/10/2014 8:37 AM CDT) [facility] Method Time Signature Tacrolimus Not Provided [facility] Last Dose [facility] LABS Tacrolimus 6.8 5.0 - [facility] Level 15.0 ug/L [facility] LABS Comment: Tacrolimus Reference Range Kidney [...] Phon e Number [facility] 500 [place], [place] [phone] [place] [address] LABS (ABNORMAL) CBC with platelets differential (02/10/2014 8:37 AM CDT) Component Value Ref Test Analysis Performed At [facility] gist Range Method Time Signature WBC 5.5 4.0 - [facility] 11.0 [facility] 10e9/L RBC Count 2.53 (L) 4.4 - [facility] 5.9 [facility] [place] [facility] 10e12/L Hemoglobin 7.9 (L) 13.3 - [facility] 17.7 [facility] g/dL Hematocrit 23.2 (L) 40.0 - [facility] 53.0 % CAMPUS LABS MCV 92 78 - 100 [facility] fl CAMPUS LABS MCH 31.2 26.5 - [facility] 33.0 pg CAMPUS LABS MCHC 34.1 31.5 - [facility] 36.5 CAMPUS LABS g/dL RDW 14.5 10.0 - [facility] 15.0 % CAMPUS LABS Platelet Count 89 (L) 150 - [facility] 450 CAMPUS LABS 10e9/L Diff Method Manual [...] Code Phon e Number [id number] DIFFERENTIAL [facility] LABS (ABNORMAL) Phosphorus (02/10/2014 8:37 AM CDT) P athologist Signature Phosphorus 1.9 (L) 2.5 - 4.5 [facility] mg/dL CAMPUS LABS Specimen Anatomical Collection Method Collection Time Receive d Time (Source) Location / / Volume Laterality Blood specimen 02/10/2014 8:37 AM 014 8:38 (specimen) CDT AM CDT Migel Merchant MD LAB - BLOOD ORDERABLES Performing Organization Address City/State/ZIP Code Phon e Number [facility] 500 [place] [address] [facility] LABS Magnesium (02/10/2014 8:37 AM CDT) P athologist Signature Magnesium 2.0 1.6 - 2.3 [facility] mg/dL CAMPUS LABS Specimen Anatomical Collection Method Collection Time Receive d Time (Source) Location / / Volume Laterality Blood specimen 02/10/2014 8:37 AM 014 8:38 (specimen) CDT AM CDT Migel Merchant MD LAB - BLOOD ORDERABLES Performing Organization Address City/[facility] Code Phon e Number [facility] 500 [place] [address] [facility] LABS (ABNORMAL) Basic metabolic panel (02/10/2014 8:37 AM CDT) Patholo gist Method Time Signature Sodium 144 133 - 144 [facility] mmol/L [facility] LABS Potassium 4.8 3.4 - 5.3 [facility] mmol/L [facility] LABS Chloride 111 (H) 94 - 109 [facility] mmol/L [facility] LABS Carbon Dioxide 22 20 - 32 [facility] mmol/L [facility] LABS Anion Gap 10 6 - 17 [facility] mmol/L [facility] LABS Glucose 128 (H) 60 - 99 [facility] mg/dL [facility] LABS Urea Nitrogen 34 (H) 7 - 30 [facility] mg/dL [facility] LABS Creatinine 1.80 (H) 0.66 - [facility] 1.25 mg/dL [facility] LABS GFR Estimate 38 (L) >60 [facility] mL/min/1.7 [facility] m2 CAMPUS LABS GFR Estimate If 46 (L) >60 [facility] Black mL/min/1.7 [place] [address] CAMPUS LABS Calcium 9.1 8.5 - 10.4 [facility] mg/dL [facility] LABS Specimen Anatomical Collection Method Collection Time Receive d Time (Source) Location / / Volume Laterality Blood specimen 02/10/2014 8:37 AM 014 8:38 (specimen) CDT AM CDT Migel Merchant MD LAB - BLOOD ORDERABLES Performing Organization Address City/State/ZIP Code Phon e Number [facility] 500 [place] [address] [facility] LABS documented in this encounter Visit Diagnoses Diagnosis Kidney replaced by transplant - Primary documented in this encounter Care Teams Head Stock Operator Relationship Specialty Start Date End Date Momo Forbes PCP - General Family Practice 01/02/14 [facility] [address] [place] [phone] Ingrid Santana, RN Registered Nurse Transplant 02/10/12 documented as of this encounter
--- OUTSIDE RECORDS SUMMARY | 2022-07-05 14:48 | XMS_ITS | Encounter Summary ---
:1950 Author Organization [place] Address [facility]0 [facility] [place] [address] Care Team Providers Name Role Phone Ingrid Santana RN Unavailable Unavailable Momo Forbes Primary Care Provider Reason for Visit Reason Onset Date Comments Refill Request 02/15/2014 Encounter Details Date Type Department Care Team Description 02/15/2014 Refill Nephrology Shiva Kahn RN Refill Request 2nd Floor, Clinic 2A [facility] Sanders [place]ste[place] [address] [facility] [place], [place] [phone] [place] [address] [place] [phone] Social History Tobacco Use Types Packs/Day [...] this encounter Care Teams In Flight Refueling System Repairer Relationship Specialty Start Date End Date Momo Forbes PCP - General Family Practice 01/02/14 [facility] [address] [place] [address] Ingrid Santana RN Registered Nurse Transplant 02/10/12 documented as of this encounter
--- OUTSIDE RECORDS SUMMARY | 2022-07-05 14:48 | XMS_ITS | Encounter Summary ---
:1950 Author Organization [place] Address [facility]0 [facility] [place] [address] Care Team Providers Name Role Phone Ingrid Santana RN Unavailable Unavailable Momo Forbes Primary Care Provider Reason for Visit Reason Comments Eval/Assessment LBA Encounter Details Date Type Department Care Team Description 02/12/2014 Infusion Therapy Specialty Infusion Finger, Migel Mac y replaced by Visit and Procedure MD Nathan transplant (Primary Center [address] [place] [address] Dx) [facility] [place] [address] 5 [facility] 2nd Floor [address] [phone] [place] (Work) [phone] Social History Tobacco Use [...] Guthrie Thank you for choosing [facility] ([facility]) for your transplant cares. The following information is a summary of our appointment as well as important reminders. Additional information: We will see you on for labs & assessment. We look forward in seeing you on your next appointment here at [facility]. Please don???t hesitate to callus at [phone] to reschedule any of your appointments or to speak with one of the [facility] registered nurses. It was a pleasure taking care of you today. Sincerely, Gladis Olvera, BOGDAN [facility] [address] [place] [address] January 2014Tuesday 1 2 3 4 5 6 7 8 9 10 11 12 13 14 Admission 12:55 PM Migel Merchant MD Unit 7A [facility] (Discharge: 02/08/2014) XR CHEST 2 VIEWS 1:55 [...] 1:00 PM (120 min.) Josseline Almendarez RN [facility] [place], Patient Learning Center ECH LIMITED 3:35 PM [...] [facility] 21 [facility] NEW TRANSPLANT 7:00 AM (360 min.) [facility] Sipc Chair 9 [facility] 22 [facility] NEW TRANSPLANT 7:00 AM (360 min.) [facility] Sip[facility] Chair 11 [facility] 23 [facility] NEW TRANSPLANT 7:00 AM (360 min.) [facility] Sip[facility] Chair 12 [facility] KIDNEY TX DISCHARGE 9:00 AM (30 min.) Kaitlynn Leon MD [facility] US RENAL TRANSPLANT 2:00 PM (60 min.) [address] 24 [facility] NEW TRANSPLANT 7:00 AM (360 min.) [facility] Sip[facility] Bed 14 [facility] SIPC RETURN 9:00 AM (30 min.) Kaitlynn Leon MD [facility] 25 26 [facility] SIPC PROCEDURE 7:00 AM (60 min.) [facility] Sipc Chair 9 [facility] SIPC RETURN 8:00 AM (30 min.) Kaitlynn Leon MD [facility] 27 28 29 30 [facility] NEW 9:00 AM (30 min.) [facility] Cvc Consult [facility] Phys[facility] Heart [facility] KIDNEY POST OP 1:45 [...] 4:27 PM CDT Diego Guthrie came to [facility] today for a lab and assess following a Kidney transplant on 02/02/14. Discharge date: 02/08/14 life skills coordinator: Leandro Kahn Phone number patient can be reached at: [phone] Physical Assessment: See physical assessment located under Document Flowsheets. Incision site: with modesta & slight ecchymosis. Dry dressing changed. Lines: MARGARET drain to bulb suction is draining sero sanguinous fluid. Continues to drain more than 30 ml/day. Pt will have Tuesday off from [facility] and will return for LBA. Gibbs: [...] of care for today: Pt presented to [facility] for labs and assessment. Labs drawn, reviewed with Dr. Leon. Oral phosphorus tablets ordered. Coumadin dose decreased to 5 mg every evening. Pt will have Tuesday off, return and will start with [facility] Nursing on TuesdayFebruary 15. Pt's MARGARET [...] Discharge Plan Pt will follow up with [facility] on 02/14 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/Associate Producer verbalized understanding, all questions answered: YES Discharged [...] Signature INR 2.64 (H) 0.86 - 1.14 [facility] LABS Specimen Anatomical Collection Method Collection Time Receive d Time (Source) Location / / Volume Laterality Blood specimen 02/12/2014 7:41 AM 014 7:43 (specimen) CDT AM CDT Kaitlynn Leon MD LAB - BLOOD ORDERABLES Performing Organization Address City/State/ZIP Code Phon e Number [facility] 500 [place] [address] [facility] LABS Tacrolimus level (02/12/2014 7:41 AM CDT) [facility] gist Method Time Signature Tacrolimus Last 02/11/14 [facility] Dose 1900 [facility] LABS Tacrolimus 8.4 5.0 - [facility] Level 15.0 ug/L [facility] LABS Comment: Tacrolimus Reference [...] Phon e Number [facility] 500 [place] [address] [facility] LABS (ABNORMAL) CBC with platelets differential (02/12/2014 7:41 AM CDT) Patholo gist Method Time Signature WBC 5.0 4.0 - [facility] 11.0 [place] 10e9/L [place] LABS RBC Count 2.41 (L) 4.4 - 5.9 [facility] 10e12/L [facility] LABS Hemoglobin 7.4 (L) 13.3 - [facility] 17.7 g/dL [facility] LABS Hematocrit 22.3 (L) 40.0 - [facility] 53.0 % [facility] LABS MCV 93 78 - 100 [facility] fl [facility] LABS MCH 30.7 26.5 - [facility] 33.0 pg [facility] LABS MCHC 33.2 31.5 - [facility] 36.5 g/dL [facility] LABS RDW 14.5 10.0 - [facility] 15.0 % [facility] LABS Platelet Count 95 (L) 150 - 450 [facility] 10e9/L [facility] LABS Diff Method Automated [facility] Method [facility] LABS % Neutrophils 85.2 % [facility] LABS % Lymphocytes 5.6 % [facility] LABS % Monocytes 4.6 % [facility] LABS % Eosinophils 4.2 % [facility] % Basophils 0.2 % [facility] LAB[facility] % Immature 0.2 % [facility] Granulocytes [facility] LABS Absolute 4.3 1.6 - 8.3 [facility] Neutrophil 10e9/L [facility] LABS Absolute 0.3 (L) 0.8 - 5.3 [facility] Lymphocytes 10e9/L [facility] LABS Absolute 0.2 0.0 - 1.3 [facility] Monocytes 10e9/L [facility] LABS Absolute 0.2 0.0 - 0.7 [facility] Eosinophils 10e9/L [facility] LABS Absolute 0.0 0.0 - 0.2 [facility] Basophils 10e9/L [facility] LABS Abs Immature 0.0 0 - 0.4 [facility] Granulocytes 10e9/L [facility] LABS Specimen Anatomical Collection Method Collection Time Receive d Time (Source) Location / / Volume Laterality Blood specimen 02/12/2014 7:41 AM 014 7:43 (specimen) CDT AM CDT Kaitlynn Leon MD LAB - BLOOD ORDERABLES Performing Organization Address City/State/ZIP Code Phon e Number [facility] 500 [place], [place] [phone] [place] [address] LABS (ABNORMAL) Phosphorus (02/12/2014 7:41 AM CDT) P athologist Signature Phosphorus 1.7 (L) 2.5 - 4.5 [facility] UN[facility]ERSITY mg/dL CAMPUS LABS Specimen Anatomical Collection Method Collection Time Receive d Time (Source) Location / / Volume Laterality Blood specimen 02/12/2014 7:41 AM 014 7:43 (specimen) CDT AM CDT Kaitlynn Leon MD LAB - BLOOD ORDERABLES Performing Organization Address City/[facility] Phon e Number [facility] [address] LABS Magnesium (02/12/2014 7:41 AM CDT) athologist Signature Magnesium 1.8 1.6 - 2.3 [facility] UNIVERSITY mg/dL CAMPUS LABS Specimen Anatomical Collection Method Collection Time Receive d Time (Source) Location / / Volume Laterality Blood specimen 02/12/2014 7:41 AM 014 7:43 (specimen) CDT AM CDT Kaitlynn Leon MD LAB - BLOOD ORDERABLES Performing Organization Address City/State/[facility] Code Phon e Number [facility] 500 [place], [place] [phone] [place] [address] LABS (ABNORMAL) Basic metabolic panel (02/12/2014 7:41 AM CDT) [facility] gist Method Time Signature Sodium 142 133 - 144 [facility] mmol/L [facility] LABS Potassium 4.9 3.4 - 5.3 [facility] mmol/L [facility] LABS Chloride 113 (H) 94 - 109 [facility] mmol/L [facility] LABS Carbon Dioxide 21 20 - 32 [facility] mmol/L [facility] LABS Anion Gap 9 6 - 17 [facility] mmol/L [facility] LABS Glucose 127 (H) 60 - 99 [facility] mg/dL [facility] LABS Urea Nitrogen 24 7 - 30 [facility] mg/dL [facility] LABS Creatinine 1.92 (H) 0.66 - [facility] 1.25 mg/dL [facility] LABS GFR Estimate 36 (L) >60 [facility] mL/min/1.7 [place] m2 CAMPUS LABS GFR Estimate If 43 (L) >60 [facility] Black mL/min/1.7 [place] [address] CAMPUS LABS Calcium 8.9 8.5 - 10.4 [facility] mg/dL [facility] LABS Specimen Anatomical Collection Method Collection Time Receive d Time (Source) Location / / Volume Laterality Blood specimen 02/12/2014 7:41 AM 014 7:43 (specimen) CDT AM CDT Kaitlynn Leon MD LAB - BLOOD ORDERABLES Performing Organization Address City/State/ZIP Code Phon e Number [facility] 500 [place] [address] [facility] LABS documented in this encounter Visit [...] after. documented in this encounter Care Teams Police Matron Relationship Specialty Start Date End Date Momo Forbes PCP - General Family Practice 01/02/[address] [address] Ingrid Santana, RN Registered Nurse Transplant 02/10/12 documented as of this encounter
--- OUTSIDE RECORDS SUMMARY | 2022-07-05 14:48 | XMS_ITS | Encounter Summary ---
:1950 Author Organization [place] Address [facility] [place] [address] Care Team Providers Name Role Phone Ingrid Santana RN Unavailable Unavailable Momo Forbes Primary Care Provider Reason for Visit Reason Comments Eval/Assessment LBA Encounter Details Date Type Department Care Team Description 02/11/2014 Infusion Therapy Specialty Infusion Finger, Migel Mac y replaced by Visit and Procedure MD Nathan transplant (Primary Center [address] [place] [address] Dx) [facility] [place] [address] 5 [facility] 2nd Floor [address] [phone] [place], [place] (Work) [phone] Social History Tobacco Use [...] Diego Guthrie Thank you for choosing [facility] ([facility] [...] regarding the result at your appointment in [facility] tomorrow. We look forward in seeing you on your next appointment here at [facility]. Please don???t hesitate to callus at [phone] to reschedule any of your appointments or to speak with one of the [facility] registered nurses. It was a pleasure taking care of you today. Sincerely, Gladis Olvera RN [facility] [address] [place] [address]. [place] [address] documented in this encounter Progress Notes Gladis Olvera RN - 02/11/2014 8:43 AM CDT Diego Guthrie came to [facility] today for a lab and assess following a Kidney transplant on 02/02/14. Discharge date: 02/08/14 bariatric coordinator: Leandro Kahn Phone number patient can be reached at: [phone] Physical Assessment: See physical assessment located under Document Flowsheets. Incision site: Dry dressing with modesta. Dressing changed. Small amt oozing, Small amt ecchymosis. Pt instructed on signs/symptoms of infection. Some swelling under incision, pt has known hematoma andwill have a renal ultrasound today at 2pm. Lines: MARGARET drain to bulb suction, serosanguinous drainage. 20 ml at [facility] appointment today. Gibbs: n/a Urine clarity: clear per patient report Hydration: discussed drinking 2-3 L daily Nutrition: Pt states appetite is improving Last BM: 02/10/14 evening Pain: 2 at rest, 5 with activity. Pain adequately controlled with home medications Laboratory tests: Standard labs drawn. Plan of care for today: Pt presents to [facility] for Labs & Assessment following Kid Txp on 02/02/14. Pt's creatinine up to 1.97 today, but ok per Dr. Leon considering the complications with transplant. Hgb 7.4 and pt c/o slight fatigue. Discussed with Dr. Leon and will hold off on a transfusion for now, but will continue to monitor hgb at [facility] appointments over the next 2 days. INR 2.23, EKG obtained and pt found to be in Normal Sinus Rhythm. Pt will remain on coumadin for now and will follow up with a public safety teacher near [facility]. Continue daily INRs while pt is coming to [facility]. Pt's MARGARET continues to drain [...] follow up with [facility] tomorrow. 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/Shower Attendant verbalized understanding, all questions answered: YES Discharged [...] Results Tacrolimus level (02/11/2014 7:40 AM CDT) [facility] gist Method Time Signature Tacrolimus Last 02/10/14 [facility] Dose 2000 [facility] Tacrolimus 12.2 5.0 - [facility] Level 15.0 ug/L [facility] Comment: Tacrolimus Reference Range Kidney Transplant [...] Phon e Number [facility] 500 [place], [place] [phone] [place] [address] LABS (ABNORMAL) CBC with platelets differential (02/11/2014 7:40 AM CDT) [facility] gist Method Time Signature WBC 4.4 4.0 - [facility] 11.0 [facility] 10e9/L [place] [facility] RBC Count 2.39 (L) 4.4 - 5.9 [facility] 10e12/L [facility] Hemoglobin 7.4 (L) 13.3 - [facility] 17.7 g/dL [facility]S Hematocrit 22.1 (L) 40.0 - [facility] 53.0 % [facility] MCV 93 78 - 100 [facility] fl [facility] MCH 31.0 26.5 - [facility] 33.0 pg [facility] MCHC 33.5 31.5 - [facility] 36.5 g/dL [facility] RDW 14.7 10.0 - [facility] 15.0 % [facility] Platelet Count 83 (L) 150 - 450 [facility] 10e9/L [facility] Diff Method Automated [facility] Method [facility] % Neutrophils 80.4 % [facility] LABS % Lymphocytes 8.2 % [facility] LABS % Monocytes 5.2 % [facility] LABS % Eosinophils 5.7 % [facility] LABS % Basophils 0.0 % [facility] LABS % Immature 0.5 % [facility] Granulocytes [facility] Absolute 3.5 1.6 - 8.3 [facility] Neutrophil 10e9/L [facility] Absolute 0.4 (L) 0.8 - 5.3 [facility] Lymphocytes 10e9/L [facility] Absolute 0.2 0.0 - 1.3 [facility] Monocytes 10e9/L [facility] Absolute 0.3 0.0 - 0.7 [facility] Eosinophils 10e9/L [facility] Absolute 0.0 0.0 - 0.2 [facility] Basophils 10e9/L [facility] Abs Immature 0.0 0 - 0.4 [facility] Granulocytes 10e9/L [facility] Specimen Anatomical Collection Method Collection Time Receive d Time (Source) Location / / Volume Laterality Blood specimen 02/11/2014 7:40 AM 014 7:41 (specimen) CDT AM CDT Kaitlynn Leon MD LAB - BLOOD ORDERABLES Performing Organization Address City/[facility]/ZIP Code Phon e Number [facility] [address] LABS (ABNORMAL) Phosphorus (02/11/2014 7:40 AM CDT) athologist Signature Phosphorus 1.9 (L) 2.5 - 4.5 [facility] mg/dL [place] [facility] Specimen Anatomical Collection Method Collection Time Receive d Time (Source) Location / / Volume Laterality Blood specimen 02/11/2014 7:40 AM 014 7:41 (specimen) CDT AM CDT Kaitlynn Leon MD LAB - BLOOD ORDERABLES Performing Organization Address City/[facility]/ZIP Code Phon e Number [address] LABS Magnesium (02/11/2014 7:40 AM CDT) athologist Signature Magnesium 1.9 1.6 - 2.3 [facility] mg/dL [place] [facility] Specimen Anatomical Collection Method Collection Time Receive d Time (Source) Location / / Volume Laterality Blood specimen 02/11/2014 7:40 AM 014 7:41 (specimen) CDT AM CDT Kaitlynn Leon MD LAB - BLOOD ORDERABLES Performing Organization Address City/[facility]/ZIP Code Phon e Number [address] LABS (ABNORMAL) Basic metabolic panel (02/11/2014 7:40 AM CDT) [facility] gist Method Time Signature Sodium 142 133 - 144 [facility] mmol/L [facility]S Potassium 5.4 (H) 3.4 - 5.3 [facility] mmol/L [facility]S Chloride 113 (H) 94 - 109 [facility] mmol/L [facility] Carbon Dioxide 22 20 - 32 [facility] mmol/L [facility] Anion Gap 8 6 - 17 [facility] mmol/L [facility] Glucose 155 (H) 60 - 99 [facility] mg/dL [facility] Urea Nitrogen 31 (H) 7 - 30 [facility] mg/dL [facility]S Creatinine 1.97 (H) 0.66 - [facility] 1.25 mg/dL [facility] LABS GFR Estimate 35 (L) >60 [facility] mL/min/1.7 [place] m2 CAMPUS LABS GFR Estimate If 42 (L) >60 [facility] Black mL/min/1.7 [place] [address] CAMPUS LABS Calcium 9.1 8.5 - 10.4 [facility] mg/dL [facility] LABS Specimen Anatomical Collection Method Collection Time Receive d Time (Source) Location / / Volume Laterality Blood specimen 02/11/2014 7:40 AM 014 7:41 (specimen) CDT AM CDT Kaitlynn Leon MD LAB - BLOOD ORDERABLES Performing Organization Address City/State/ZIP Code Phon e Number [phone] [place], [place] [id number] [facility] documented in this encounter Visit Diagnoses Diagnosis Kidney replaced by transplant - Primary documented in this encounter Care Teams Transcripter Relationship Specialty Start Date End Date Momo Forbes PCP - General Family Practice 01/02/14 [facility] [address] [place] [address] Ingrid Santana, RN Registered Nurse Transplant 02/10/12 documented as of this encounter
--- OUTSIDE RECORDS SUMMARY | 2022-07-05 14:48 | XMS_ITS | Encounter Summary ---
:1950 Author Organization [place] Address [facility] [place] [address] Care Team Providers Name Role Phone Ingrid Santana RN Unavailable Unavailable Momo Forbes Primary Care Provider Encounter Details Date Type Department Care Team Description 02/02/2014 Abstract The Transplant [facility] 2nd Floor, Clinic [address] [phone] Social History Tobacco Use [...] filedocumented in this encounter Care Teams Corporate Safety Coordinator Relationship Specialty Start Date End Date Momo Forbes PCP - General Family Practice 01/02/14 [facility] [address] [place] [address] Ingrid Santana, BOGDAN Registered Nurse Transplant 02/10/12 documented as of this encounter
--- OUTSIDE RECORDS SUMMARY | 2022-07-05 14:48 | XMS_ITS | Encounter Summary ---
:1950 Author Organization [place] Address [facility]0 [facility] [place] [address] Care Team Providers Name Role Phone Ingrid Santana RN Unavailable Unavailable Momo Forbes Primary Care Provider Reason for Visit Reason Comments Eval/Assessment LBA Encounter Details Date Type Department Care Team Description 02/09/2014 Infusion Therapy Specialty Infusion Finger, Migel Mac y replaced by transplant (Primary Dx); Visit and Procedure MD [facility] [address] [place] [address] 19 5 [facility] 2nd Floor [address] [phone] [place], [place] (Work) [phone] Social History Tobacco [...] Thank you for choosing [facility] ([facility]) for your transplant cares. The following [...] Bring Humulog Insulin Pen to your future [facility] appointments. 5) Return to [facility] tomorrow at 07:30 a.m We look forward in seeing you on your next appointment here at [facility]. Please don???t hesitate to callus at [phone] to reschedule any of your appointments or to speak with one of the [facility] registered nurses. It was a pleasure taking care of you today. Sincerely, MARC HERNANDEZ RN [facility] [address] [address] Coumadin Information: Keep Your Diet Steady Keep [...] 7:31 AM CDT Diego Guthrie came to [facility] today for a lab and assess following a Kidney transplant on 02/02/14. Discharge date: 02/08/14 quality management coordinator: Leandro Kahn Phone number patient can be reached at: [phone] Physical Assessment: See physical assessment located under Document Flowsheets. Incision site: W/moedsta c/d/i. Pt oozing scant amount serosang drainage. [...] s/s insulin this morning/nor brought insulin to [facility] appt. I reviewed w/pt the need to monitor BG's QID and to bring Insulin to future [facility] appt's. Last BM: yesterday, loose, pt stopped stool softeners. Pain: Incisional pain rated a 5 , declines pain meds at this time. Laboratory tests: Standard labs drawn. Plan of care for today: 1) Labs/Nausea/Orthostatic BP/MARGARET output reviewed with Dr Hernandes, orders: Increase Zofran to 8mg every 6-8 hours, MARGARET to remain in another day, Administer 1L of NS today, d/c pt from [facility] post 1L NS, return to [facility] tomorrow for LBA, No change in [...] and Phone numbers to call with concenrs (quality management coordinator, [address] and [facility]) Patient verbalized understanding and all questions answered. Drug level: Prograf level today reviewed with Dr Hernandes who gave orders to no change in dose. INR of 1.59 also reviewed w/Dr Hernandes who gave orders to increase Coumadin to 7.5mg QD. Patient was updated with this information and verbalized understanding. Discharge Plan Pt will follow up with [facility] tomorrow at 0730. Bring Humulog Insulin Pen to [facility] today (pt did not bring to today's appt). 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/Content Strategist verbalized understanding, all questions answered: YES Discharged [...] Signature INR 1.59 (H) 0.86 - 1.14 [facility] LABS Specimen Anatomical Collection Method Collection Time Receive d Time (Source) Location / / Volume Laterality Blood specimen 02/09/2014 8:30 AM 014 (specimen) CDT 11:07 AM CDT Migel Merchant MD LAB - BLOOD ORDERABLES Performing Organization Address City/State/ZIP Code Phon e Number [facility] [address] [place], [place] [phone] [place] [address] LABS Tacrolimus level (02/09/2014 7:40 AM CDT) [facility] gist Method Time Signature Tacrolimus Not Provided [facility] Last Dose [facility] LABS Tacrolimus 8.0 5.0 - [facility] Level 15.0 ug/L [facility] LABS Comment: Tacrolimus Reference Range [...] Phon e Number [facility] [address] [place], [place] [phone] [place] [address] LABS (ABNORMAL) CBC with platelets differential (02/09/2014 7:40 AM CDT) [facility] Method Time Signature WBC 5.8 4.0 - [facility] 11.0 [place] 10e9/L [place] LABS RBC Count 2.66 (L) 4.4 - 5.9 [facility] 10e12/L [facility] LABS Hemoglobin 8.2 (L) 13.3 - [facility] 17.7 g/dL [facility] LABS Hematocrit 24.4 (L) 40.0 - [facility] 53.0 % [facility] LABS MCV 92 78 - 100 [facility] fl [facility] LABS MCH 30.8 26.5 - [facility] 33.0 pg [facility] LABS MCHC 33.6 31.5 - [facility] 36.5 g/dL [facility] LABS RDW 14.6 10.0 - [facility] 15.0 % [facility] LABS Platelet Count 78 (L) 150 - 450 [facility] 10e9/L [facility] LABS Diff Method Automated [facility] Method [facility] LABS % Neutrophils 84.8 % [facility] LABS % Lymphocytes 5.2 % [facility] LABS % Monocytes 6.9 % [facility] LABS % Eosinophils 2.9 % [facility] LABS % Basophils 0.0 % [facility] LABS % Immature 0.2 % [facility] Granulocytes [facility] LABS Absolute 4.9 1.6 - 8.3 [facility] Neutrophil 10e9/L [facility] LABS Absolute 0.3 (L) 0.8 - 5.3 [facility] Lymphocytes 10e9/L [facility] LABS Absolute 0.4 0.0 - 1.3 [facility] Monocytes 10e9/L [facility] LABS Absolute 0.2 0.0 - 0.7 [facility] Eosinophils 10e9/L [facility] LABS Absolute 0.0 0.0 - 0.2 [facility] Basophils 10e9/L [facility] LABS Abs Immature 0.0 0 - 0.4 [facility] Granulocytes 10e9/L [facility] LABS Specimen Anatomical Collection Method Collection Time Receive d Time (Source) Location / / Volume Laterality Blood specimen 02/09/2014 7:40 AM 014 7:49 (specimen) CDT AM CDT Migel Merchant MD LAB - BLOOD ORDERABLES Performing Organization Address City/State/ZIP Code Phon e Number [phone] [place] [address] LABS (ABNORMAL) Phosphorus (02/09/2014 7:40 AM CDT) P athologist Signature Phosphorus 2.0 (L) 2.5 - 4.5 [facility] mg/dL CAMPUS LABS Specimen Anatomical Collection Method Collection Time Receive d Time (Source) Location / / Volume Laterality Blood specimen 02/09/2014 7:40 AM 014 7:49 (specimen) CDT AM CDT Migel Merchant MD LAB - BLOOD ORDERABLES Performing Organization Address City/[facility]/ZIP Code Phon e Number [facility] [address] LABS Magnesium (02/09/2014 7:40 AM CDT) [...] Phon e Number [facility] [address] [place], [place] [phone] [place] [address] LABS (ABNORMAL) Basic metabolic panel (02/09/2014 7:40 AM CDT) Patholo gist Method Time Signature Sodium 145 (H) 133 - 144 [facility] mmol/L [facility] LABS Potassium 4.5 3.4 - 5.3 [facility] mmol/L [facility] LABS Chloride 110 (H) 94 - 109 [facility] mmol/L [facility] LABS Carbon Dioxide 24 20 - 32 [facility] mmol/L [facility] LABS Anion Gap 10 6 - 17 [facility] mmol/L [facility] LABS Glucose 137 (H) 60 - 99 [facility] mg/dL [facility] LABS Urea Nitrogen 48 (H) 7 - 30 [facility] mg/dL [facility] LABS Creatinine 2.02 (H) 0.66 - [facility] 1.25 mg/dL [facility] LABS GFR Estimate 34 (L) >60 [facility] mL/min/1.7 [place] m2 CAMPUS LABS GFR Estimate If 41 (L) >60 [facility] Black mL/min/1.7 [place] m2 CAMPUS LABS Calcium 9.2 8.5 - 10.4 [facility] mg/dL [facility] LABS Specimen Anatomical Collection Method Collection Time Receive d Time (Source) Location / / Volume Laterality Blood specimen 02/09/2014 7:40 AM 014 7:49 (specimen) CDT AM CDT Migel Merchant MD LAB - BLOOD ORDERABLES Performing Organization Address City/State/ZIP Code Phon e Number [facility] [address] [place] [address] [facility] LABS documented in this encounter Visit Diagnoses [...] dose documented in this encounter Care Teams Battery Builder Relationship Specialty Start Date End Date Momo Forbes PCP - General Family Practice 01/02/14 [facility] [address] [place] [address] Ingrid Santana, RN Registered Nurse Transplant 02/10/12 documented as of this encounter
--- OUTSIDE RECORDS SUMMARY | 2022-07-05 14:48 | XMS_ITS | Encounter Summary ---
:1950 Author Organization [place] Address [address] [place] [address] Care Team Providers Name Role Phone Ingrid Santana RN Unavailable Unavailable Momo Forbes Primary Care Provider Reason for Visit Reason Onset Date Comments Previsit 02/15/[address] Merchant 02/18 Encounter Details Date Type Department Care Team Description 02/15/2014 Telephone Transplant Surgery Radha Acosta LPN Prev isit (Appt with Dr Anthony Merchant 02/18) 2nd Floor, Clinic [address] [place] [address] Social History Tobacco Use Types [...] on filedocumented in this encounter Care Teams Geriatric Psychiatrist Relationship Specialty Start Date End Date Momo Forbes PCP - General Family Practice 01/02/14 [place] [phone] Ingrid Santana, RN Registered Nurse Transplant 02/10/12 documented as of this encounter
--- OUTSIDE RECORDS SUMMARY | 2022-07-05 14:48 | XMS_ITS | Encounter Summary ---
:1950 Author Organization [place] Address [address] [place] [address] Care Team Providers Name Role Phone Ingrid Santana RN Unavailable Unavailable Momo Fobres Primary Care Provider Encounter Details Date Type Department Care Team Description 02/02/2014 Results Only LABORATORY RESULTS Migel Merchant MD [address] [facility] [address] [place], [place] [phone] (Wo rk) Social History Tobacco Use Types [...] I Single Antigen (02/02/2014 6:51 PM CDT) [facility] Time Signature SA1 Test SA HI HISTOTRAC Method SA1 Cell Class I HISTOTRAC SA1 PRA %POS 1 HISTOTRAC SA1 Hi Risk None HISTOTRAC Lukasz SA1 Mod Risk A:43 HISTOTRAC Lukasz SA1 Comments Test performed by daen soto. Serum heat inactivated. High-risk, HISTOTRAC mfi >3,000. Mod-risk, mfi 500-3,000. Predictive PRA derived from local donor pool. Specimen Anatomical Collection Method Collection Time Receive d Time (Source) Location / / Volume Laterality 02/02/2014 6:51 PM 4 6:58 CDT PM CDT Migel Merchant MD LAB - IMMUNOLOGY ORDERABLES Performing Organization Address City/State/ZIP Code Phon e Number [facility] Immunology/Histocompatabil [place], [place] [address] [facility] [address] [facility] [address] Building, Room 3-580 HISTOTRAC documented in this encounter Visit Diagnoses Not on filedocumented in this encounter Care Teams Elevator Constructor Relationship Specialty Start Date End Date Momo Forbes PCP - General Family Practice 01/02/14 [facility] [address] [place] [address] Ingrid Santana, RN Registered Nurse Transplant 02/10/12 documented as of this encounter
--- OUTSIDE RECORDS SUMMARY | 2022-07-05 14:48 | XMS_ITS | Encounter Summary ---
:1950 Author Organization [place] Address [address] [place] [address] Care Team Providers Name Role Phone Ingrid Santana RN Unavailable Unavailable Momo Forbes Primary Care Provider Encounter Details Date Type Department Care Team Description 02/02/2014 Results Only LABORATORY RESULTS Migel Merchant MD [address] [place] [address] 195 [place], [place] [address] (Wo rk) Social History Tobacco Use Types [...] T/B Crossmatch Auto (02/02/2014 6:51 PM CDT) [facility] Method Time Signature Crossmatch Donor:ELINOR GUTHRIE [...] Phon e Number [facility] Immunology/Histocompatabil [place], [place] [address] [facility] [address] [facility] [address] Building, Room 3-580 HISTOTRAC documented in this encounter Visit Diagnoses Not on filedocumented in this encounter Care Teams Structural Steel Painter Relationship Specialty Start Date End Date Momo Forbes PCP - General Family Practice 01/02/14 [facility] [address] [place] [address] Ingrid Santana, RN Registered Nurse Transplant 02/10/12 documented as of this encounter
--- OUTSIDE RECORDS SUMMARY | 2022-07-05 14:48 | XMS_ITS | Encounter Summary ---
:1950 Author Organization [place] Address On license of [facility] [place] [address] Care Team Providers Name Role Phone Ingrid Santana RN Unavailable Unavailable Momo Forbes Primary Care Provider Encounter Details Date Type Department Care Team Description 02/11/2014 Orders Only Nephrology Josseline Nice, Kidney replaced by 2nd Floor, Clinic 2A PASTOR transplant (Primary Tommy Wilburn Dx) [address] [phone] Social History Tobacco Use Types Packs/Day Years [...] Primary documented in this encounter Care Teams Flanging Machine Operator Relationship Specialty Start Date End Date Momo Forbes PCP - General Family Practice 01/02/14 [facility] [address] [place] [address] Ingrid Santana RN Registered Nurse Transplant 02/10/12 documented as of this encounter
--- OUTSIDE RECORDS SUMMARY | 2022-07-05 14:48 | XMS_ITS | Encounter Summary ---
:1950 Author Organization [place] Address Formerly [facility] [place] [address] Care Team Providers Name Role Phone Ingrid Santana RN Unavailable Unavailable Momo Forbes Primary Care Provider Reason for Visit Reason Comments Eval/Assessment LABS, ASSESSMENT, EDUCATION AND DRESSING CHANGE. Encounter Details Date Type Department Care Team Description 02/14/2014 Infusion Therapy Specialty Infusion Kaitlynn Leon MD Kidney replaced by transplant (Primary D x); Visit and Procedure Center [facility] [place] [facility] [address] [phone] [place], [place] (Work) [phone] Social History Tobacco Use [...] Phone number patient can be reached at: [phone] Physical Assessment: See physical assessment located under [...] Tuesday. 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, all questions answered: YES Discharged [...] Signature INR 2.29 (H) 0.86 - 1.14 [facility] LABS Specimen Anatomical Collection Method Collection Time Receive d Time (Source) Location / / Volume Laterality Blood specimen 02/14/2014 7:51 AM 014 7:58 (specimen) CDT AM CDT Kaitlynn Leon MD LAB - BLOOD ORDERABLES Performing Organization Address City/State/ZIP Code Phon e Number [facility] [address] [place], [place] [id number] [place] [address] LABS Tacrolimus level (02/14/2014 7:51 AM CDT) [facility] gist Method Time Signature Tacrolimus Last 1914 [facility] Dose 02/13/14 [facility] LABS Tacrolimus 7.5 5.0 - [facility] Level [...] e Number [facility] [address] [facility] (ABNORMAL) CBC with platelets differential (02/14/2014 7:51 AM CDT) [facility] gist Method Time Signature WBC 6.9 4.0 - [facility] 11.0 [place] 10e9/L [place] LABS RBC Count 2.55 (L) 4.4 - 5.9 [facility] 10e12/L [facility] LABS Hemoglobin 7.8 (L) 13.3 - [facility] 17.7 g/dL [facility] LABS Hematocrit 23.4 (L) 40.0 - [facility] 53.0 % [facility] LABS MCV 92 78 - 100 [facility] fl [facility] LABS MCH 30.6 26.5 - [facility] 33.0 pg [facility] LABS MCHC 33.3 31.5 - [facility] 36.5 g/dL [facility] LABS RDW 14.9 10.0 - [facility] 15.0 % [facility] LABS Platelet Count 122 (L) 150 - 450 [facility] 10e9/L [facility] LABS Diff Method Automated [facility] Method [facility] % Neutrophils 88.7 % [facility] LAB[facility] % Lymphocytes 2.6 % [facility] % Monocytes 4.5 % [facility] % Eosinophils 3.8 % [facility] % Basophils 0.1 % [facility] % Immature 0.3 % [facility] Granulocytes [facility] LABS Absolute 6.1 1.6 - 8.3 [facility] Neutrophil 10e9/L [facility] LABS Absolute 0.2 (L) 0.8 - 5.3 [facility] Lymphocytes 10e9/L [facility] LABS Absolute 0.3 0.0 - 1.3 [facility] Monocytes 10e9/L [facility] LABS Absolute 0.3 0.0 - 0.7 [facility] Eosinophils 10e9/L [facility] LAB[facility] Absolute 0.0 0.0 - 0.2 [facility] Basophils 10e9/L [facility] LABS Abs Immature 0.0 0 - 0.4 [facility] Granulocytes 10e9/L [facility] LABS Specimen Anatomical Collection Method Collection Time Receive d Time (Source) Location / / Volume Laterality Blood specimen 02/14/2014 7:51 AM 014 7:53 (specimen) CDT AM CDT Joseph Quintana MD LAB - BLOOD ORDERABLES Performing Organization Address City/State/ZIP Code Phon e Number [address] LABS (ABNORMAL) Phosphorus (02/14/2014 7:51 AM CDT) P athologist Signature Phosphorus 2.4 (L) 2.5 - 4.5 [facility] mg/dL [place] LAB[facility] Specimen Anatomical Collection Method Collection Time Receive d Time (Source) Location / / Volume Laterality Blood specimen 02/14/2014 7:51 AM 014 7:53 (specimen) CDT AM CDT Joseph Quintana MD LAB - BLOOD ORDERABLES Performing Organization Address City/State/ZIP Code Phon e Number [address] LABS Magnesium (02/14/2014 7:51 AM CDT) athologist Signature Magnesium 1.6 1.6 - 2.3 [facility] mg/dL CAMPUS LABS Specimen Anatomical Collection Method Collection Time Receive d Time (Source) Location / / Volume Laterality Blood specimen 02/14/2014 7:51 AM 014 7:53 (specimen) CDT AM CDT Joseph Quintana MD LAB - BLOOD ORDERABLES Performing Organization Address City/[facility]/ZIP Code Phon e Number [facility] [address] [place] [address] [facility] LABS (ABNORMAL) Basic metabolic panel (02/14/2014 7:51 AM CDT) [facility] Method Time Signature Sodium 143 133 - 144 [facility] mmol/L [facility] LABS Potassium 5.4 (H) 3.4 - 5.3 [facility] mmol/L [facility] LABS Chloride 113 (H) 94 - 109 [facility] mmol/L [facility] LABS Carbon Dioxide 20 20 - 32 [facility] mmol/L [facility] LABS Anion Gap 9 6 - 17 [facility] mmol/L [facility] LABS Glucose 193 (H) 60 - 99 [facility] mg/dL [facility] LABS Urea Nitrogen 18 7 - 30 [facility] mg/dL [facility] LABS Creatinine 1.82 (H) 0.66 - [facility] 1.25 mg/dL [facility]S GFR Estimate 38 (L) >60 [facility] mL/min/1.7 [facility] GFR Estimate If 46 (L) >60 [facility] [place] mL/min/1.7 [place] [facility] LAB[facility] Calcium 9.2 8.5 - 10.4 [facility] mg/dL [facility] LAB[facility] Specimen Anatomical Collection Method Collection Time Receive d Time (Source) Location / / Volume Laterality Blood specimen 02/14/2014 7:51 AM 014 7:53 (specimen) CDT AM CDT Joseph Quintana MD LAB - BLOOD ORDERABLES Performing Organization Address City/[facility]/ZIP Code Phon e Number [facility] [address] [place] [address] [facility] LABS documented in this encounter Visit Diagnoses Diagnosis Kidney replaced by transplant - Primary S/P kidney transplant Kidney replaced by transplant documented in this encounter Care Teams Stunt Man Relationship Specialty Start Date End Date Momo Forbes PCP - General Family Practice 01/02/14 [facility] [address] [place] [address] Ingrid Santana, RN Registered Nurse Transplant 02/10/12 16 documented as of this encounter
--- OUTSIDE RECORDS SUMMARY | 2022-07-05 14:49 | XMS_ITS | Encounter Summary ---
:1950 Author Organization [place] Address [address] [place] [address]. [place] [address] Care Team Providers Name Role Phone Ingrid Santana RN Unavailable Unavailable Momo Forbes Primary Care Provider Reason for Visit Reason Comments Transplant Encounter Details Date Type Department Care Team Description 02/02/2014 Orders Only Transplant Surgery [place], End stage renal failure Clinic [facility] Mae on dialysis (H) 2nd Floor, Clinic 2A (Primary Dx) [address] [phone] Social History Tobacco Use Types Packs/Day Years [...] disease documented in this encounter Care Teams Refrigeration Insulator Relationship Specialty Start Date End Date Momo Fobres PCP - General Family Practice 01/02/14 [facility] [address] [place] [address] Ingrid Santana, RN Registered Nurse Transplant 02/10/12 documented as of this encounter
--- OUTSIDE RECORDS SUMMARY | 2022-07-05 14:49 | XMS_ITS | Encounter Summary ---
:1950 Author Organization [place] Address [address] [facility] [place] [address] Care Team Providers Name Role Phone Ingrid Santana RN Unavailable Unavailable Momo Forbes Primary Care Provider Reason for Visit Auth/Cert - Closed Specialty Diagnoses / Procedures Referred By Contact Refer red To Contact Med Surg Diagnoses end stage renal disease dialysis End stage renal failure on dialysis Renal Failure Uu U7a Procedures [facility] [address] [place] [address] Phone: Referral ID Status Reason Start Date Expiration Date Visits Requ ested Visits Authorized [id number] Closed 02/04/2014 08/03/2014 1 1 Encounter Details Date Type Department Care Team Description 02/02/2014 Anesthesia Event [facility] Joseph Ivey MD XXX RESIGNED XXX [address] [place] [address] PeriOp Services Leigh Ann Blank MD [address] [facility] [address] [place], [place] [id number] [address] [place] [address] Anesthesia Record Procedure Summary Procedure [...] Hand Inez Mckeon Sara E RN Saima, DIRECTOR OF CORPORATE COMMUNICATIONS RETIRED ETT 02/02/14; 1753; Airway 02/02/14 1753 [...] Take 1 tablet by mouth daily. B tgxnhjw-E-rbtgn acid (NEPHROCAPS) 1 MG capsule Take 1 [...] benefits and alternatives discussed with: patient or admitting representative. Possibility of blood products discussed. I [...] plan were discussed with patient/family or family admitting representative. All questions were answered and there was agreement to proceed. History & Physical Review Leigh Ann Blank MD Anesthesiology [id number] [phone] 2:47 PM February 02, 2014 Diego Guthrie was seen and examined and the medical history was reviewed with him. The anesthetic plan was discussed, risks were explained and questions were answered. He agrees to proceed as discussed. I have reviewed this note and agree with the assessment and plan. Joseph Ivey M.D. Staff Anesthesiologist [phone] 02/02/2014 4:48 PM documented in this encounter [...] Date/Time Associated Diagnosis Comme nts [facility] PA CENTRAL Routine 02/02/2014 6:19 PM Re [...] passed easily into [facility]. Hyunnarm Nazia DO LA ANESTHESIA documented in this encounter Visit Diagnoses [...] Intra-op documented in this encounter Care Teams Painter Spray Relationship Specialty Start Date End Date Momo Forbes PCP - General [facility] 01/02/[address] [address] Ingrid Santana, RN Registered Nurse Transplant 02/10/12 documented as of this encounter
--- OUTSIDE RECORDS SUMMARY | 2022-07-05 14:50 | XMS_ITS | Encounter Summary ---
:1950 Author Organization [place] Address [facility]0 [facility] [place] [address] Care Team Providers Name Role Phone Toña [...] filedocumented in this encounter Care Teams Traffic Checker Relationship Specialty Start Date End Date Toña Jones MD PCP - General Nephrology 11/25/11 01/01/14 Momo Forbes PCP - General Family Practice 01/02/[address] [place] [address] Ingrid Santana, RN Registered Nurse Transplant 02/10/12 documented as of this encounter
--- OUTSIDE RECORDS SUMMARY | 2022-07-05 14:50 | XMS_ITS | Encounter Summary ---
:1950 Author Organization [place] Address [facility]0 [facility] [place] [address] Care Team Providers Name Role Phone Toña Jones MD Primary Care Provider Ingrid Santana RN Unavailable Unavailable Reason for Visit Reason Onset Date Comments Transplant 12/19/2013 Kidney waitlist appo intments Encounter Details Date Type Department Care Team Description 12/19/2013 Telephone The Transplant [facility] low Abstract, Provider Transplant (Kidney 2nd Floor, Clinic 2A waitlist appointments) [address] [phone] Social History Tobacco Use Types Packs/Day Years [...] filedocumented in this encounter Care Teams First Assist Relationship Specialty Start Date End Date Toña Jones MD PCP - General Nephrology 11/25/11 01/01/14 Siers, Ingrid A, RN Registered Nurse Transplant 02/10/12 documented as of this encounter
--- OUTSIDE RECORDS SUMMARY | 2022-07-05 14:50 | XMS_ITS | Encounter Summary ---
:1950 Author Organization [place] Address [address] [place] [address] Care Team Providers Name Role Phone Toña [...] Ump Sot Surgery 2nd Floor, Clinic [address]A [address] [phone] Referral ID Status Reason Start Date Expiration Date Visits Requ ested Visits Authorized [id number] Closed 12/10/2013 06/08/2014 1 1 Consultation - Closed Specialty Diagnoses / Procedures Referred By Contact Refer red To Contact Diagnoses Organ transplant candidate ESRD (end stage renal disease) on dialysis (H) DM (diabetes mellitus), type 2 (H) Zz Ump Sot Surgery [facility] Floor, [facility] [address] [phone] Referral ID Status Reason Start Date Expiration Date Visits Requ ested Visits Authorized [id number] Closed 12/10/2013 06/08/2014 1 1 Encounter Details Date Type Department Care Team Description 12/07/2013 Orders Only Transplant Surgery Nazia March LPN Organ transplant candidate (Primary Dx); Clinic Screening for other and unsp ecified cardiovascular conditions; 2nd Floor, Clinic 2A ESRD (end stage renal diseas e) on dialysis (H); Tommy Wilburn DM (madeleine betes mellitus), type 2 (H) [address] [phone] Social History Tobacco Use Types [...] uncontrolled documented in this encounter Care Teams Sleep Manager Relationship Specialty Start Date End Date Toña Jones MD PCP - General Nephrology 11/25/11 01/01/14 Ingrid Santana, RN Registered Nurse Transplant 02/10/12 documented as of this encounter
--- OUTSIDE RECORDS SUMMARY | 2022-07-05 14:50 | XMS_ITS | Encounter Summary ---
:1950 Author Organization [place] Address [address] [place] [address] Care Team Providers Name Role Phone Ingrid Santana RN Unavailable Unavailable Momo Forbes Primary Care Provider Reason for Visit Reason Onset Date Comments Pre Visit Planning - Done 01/30/2014 EKG: pre op: [age] yo M, here for continued clearance for possib le kidney txp. Encounter Details Date Type Department Care Team Description 01/30/[address] [facility] Barbara Bradley Pre Visit Planning - Physicians Heart MD Monae Done (EKG: pre op: 63 [address] [place], [place] [address] continued clearance 4th Floor, Clinic 4B for possible kidney [facility] [address] txp.) [address] [place] [phone] Social History Tobacco Use Types Packs/Day Years [...] On HD since Aug 2011. No past MA, stress tests or coronary angiogorams. No chest [...] disease documented in this encounter Care Teams Syrup Blender Relationship Specialty Start Date End Date Momo Forbes PCP - General Family Practice 01/02/14 [facility] [address] [place] [address] Ingrid Santana, RN Registered Nurse Transplant 02/10/12 documented as of this encounter
--- OUTSIDE RECORDS SUMMARY | 2022-07-05 14:50 | XMS_ITS | Encounter Summary ---
:1950 Author Organization [place] Address [facility] [place] [address] Care Team Providers Name Role Phone Toña [...] HLA Lukasz Class I Single Antigen (04/16/2013) [facility] gist Method Time Signature SA1 [...] Phon e Number [facility] Immunology/Histocompatabil [place], [place] [address] ity [facility] [address] Building, Room 3-580 HISTOTRAC documented in this encounter Visit Diagnoses Not on filedocumented in this encounter Care Teams Impregnator Electrolytic Capacitors Relationship Specialty Start Date End Date Toña Jones MD PCP - General Nephrology 11/25/11 01/01/14 Ingrid Santana, RN Registered Nurse Transplant 02/10/12 documented as of this encounter
--- OUTSIDE RECORDS SUMMARY | 2022-07-05 14:50 | XMS_ITS | Encounter Summary ---
:1950 Author Organization [place] Address [address] [place] [address] Care Team Providers Name Role Phone Toña Jones MD Primary Care Provider Ingrid Santana RN Unavailable Unavailable Encounter Details Date Type Department Care Team Description 07/30/2013 Results Only LABORATORY RESULTS Mingo Dangelo MD [address] [facility] [address] [place] [address] (Wo rk) Social History Tobacco [...] HLA Lukasz Class II Single Antigen (07/30/2013) [facility] gist Method Time [...] Volume Laterality 07/30/2013 07/31/2013 2:1 0 PM [facility] S[facility]TER Mingo Dangelo MD LAB - IMMUNOLOGY ORDERABLES Performing Organization Address City/State/ZIP Code Phon e Number [facility] Immunology/Histocompatabil [place], [place] [address] ity [facility] [address] Building, Room 3-580 HISTOTRAC documented in this encounter Visit Diagnoses Not on filedocumented in this encounter Care Teams Erp Engineer Relationship Specialty Start Date End Date Toña Jones MD PCP - General Nephrology 11/25/11 01/01/14 Ingrid Santana, RN Registered Nurse Transplant 02/10/12 documented as of this encounter
--- OUTSIDE RECORDS SUMMARY | 2022-07-05 14:50 | XMS_ITS | Encounter Summary ---
:1950 Author Organization [place] Address [facility] [place] [address] Care Team Providers Name Role Phone Toña [...] filedocumented in this encounter Care Teams Manager Rn Case Relationship Specialty Start Date End Date Toña Jones MD PCP - General Nephrology 11/25/11 01/01/14 Momo Forbes PCP - General Family Practice 01/02/[address] [place] [address] Ingrid Santana, RN Registered Nurse Transplant 02/10/12 documented as of this encounter
--- OUTSIDE RECORDS SUMMARY | 2022-07-05 14:50 | XMS_ITS | Encounter Summary ---
:1950 Author Organization [facility] Address [address] [place] [address] Care Team Providers Name Role Phone Ingrid Santana RN Unavailable Unavailable Momo Forbes Primary Care Provider Reason for Visit Auth/Cert - Closed Specialty Diagnoses / Procedures Referred By Contact Refer red To Contact Med Surg Diagnoses end stage renal disease dialysis End stage renal failure on dialysis Renal Failure Uu U7a Procedures TRANSPLANT KIDNEY RECIPIENT DONOR [address] [place] [address] Phone: Referral ID Status Reason Start Date Expiration Date Visits Requ ested Visits Authorized [id number] Closed 02/04/2014 08/03/2014 1 1 Encounter Details Date Type Department Care Team Description 02/02/2014 Surgery [facility] Migel Merchant , Kidney Transplant , PeriOp Services ureteral stent [address] [place] [address] [place] [address] [place], [place] [address] (Wo rk) Surgery Details Date/Time Status Location [...] Physician Discharge Summary Patient ID: Diego Guthrie [id number] 63 year old 1950 Admit date: 02/02/2014 [...] Take 1 tablet by mouth daily. B tzlweru-G-pezql acid (NEPHROCAPS) 1 MG capsule Take 1 [...] of these appointments you will meetwith a recreational vehicle repairer and meet your merchandising coordinator. Your nurse will also be in communication with your surgeon and recreational vehicle repairer as needed. The direct number to the [facility] is [phone]. In the [facility] [...] the hospital. This will be located in [facility] transplant surgery clinic on the second floor.Your transplant surgeon is: Dr. Merchant. You have a ureteral stent in place which needs to be removed in 4-6 weeks. If a machine shop worker does not contact you for this, please contact your merchandising coordinator. If you have modesta in place, they will be removed in 3 weeks after operation. Notify your coordinator if you have pain over your kidney, fever greater than 101.5F, or decreased urine output. Notify your coordinator immediately if you are ever unable to take your immunosuppressive medications for any reason. 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 High [...] >2. He can be seen by any hostess cashier in the outpatient setting for coordination. Continue metoprolol 25 po bid until he is r e-evaluated. We did attempt inpatient REFUGIO guided cardioversion, but the patient developed significant bleeding while on heparin. José Miguel Alvarez M.D. Airway Traffic Controller Joseph Quintana MD - 02/08/2014 12:35 PM [...] Dr. Quintana. Sina Robison MD Nephrology Fellow [phone] Attestation: This patient has been seen and [...] Ramires RN - 02/07/2014 2:25 PM CDT Installation Tech D: Diego Guthrie 63 year old male POD #5 s/p DDKT for ESRD 2/[address] Diaz note today. Per Dr Diaz, pt will most likely be ready for d/c to home tomorrow and will return to [facility] for 5 days at 0700. Pt will [...] does not know where the [facility] or transplant clinic is, I told him and he replied I will find it. Pt does not care which [facility] agency will follow him--There are only 2 to choose from, [phone] --I called and left a message with Estrella Fletcher and I fax'd his records tothem--pt will need start of care approx Thursday 02/15. Pt is new on warfarin and I called his PCP's office and they have INR nurses Tuesday-Tuesday their fax # is [phone] (when N visits are completed --pt will call main clinic # to schedule INR draws). 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 I verified his address and phone #(is his cell) on the facesheet. Pt has not met his OP critical care educator: Leandro Kahn, yet--I sent Leandro an in basket message today-with plan. A: possible d/c to home Tuesday P: see above-will follow and will call [facility] to confirm they can accept him. Joseph [...] Dr. Quintana. Sina Robison MD Nephrology Fellow [phone] Attestation: This patient has been seen and [...] assistance Medical Decision Making: Medium Subsequent visit 28353 (moderate level decision making) PATO/Fellow/Resident Provider: Adeline [...] Hernandez MD - 02/06/2014 4:25 PM CDT [facility] Cardiology Progress Note I have [...] Dr. Quintana. Sina Robison MD Nephrology Fellow [phone] Attestation: This patient has been seen and [...] Dr. Quintana. Sina Robison MD Nephrology Fellow [phone] Attestation: This patient has been seen and [...] REPLACEMENT ONLY ??? insulin (regular) Stopped (02/05/14 3547) Shiva Kahn RN - 02/05/2014 4:47 PM CDT MANAGER FILM NOTE I met with the patient and his yesterday at [facility] PCU-6B (telemetry unit) to discuss transition from inpatient to outpatient care following kidney translantation. The patient is POD #3 extended criteria donor (OIL WELL DRILLER) kidney transplant for ESRD related to diabetic [...] for daily visits to the [facility] for 5 days after discharge followed by [...] the patient again in the [facility] following discharge from [facility]. Michael, Joseph Hernandez MD - 02/05/2014 11:16 AM CDT [facility] Cardiology Progress Note I have [...] kidney on 02/02/2014. Pt lives alone in [facility] though reports that his girlfriend in in the process of moving in with him. Pt girlfriend, Tete, will be present when pt returns home but she works real time trader. Pt was on dialysis for 2 1/2 years prior to transplant. Pt works independently but reports that he currently has no income coming in. Pt has primary insurancethrough Medicare and Secondary insurance through [employer]. Pt has no co-pays for his immunosuppressants and a high out of pocket cost for Valcyte, SW to look into grants for pt for Valcyte. I: Met with pt to introduce this teletypewriter installer and explain sw role and services available while inpatient in the hospital. Asked if pt had any questions or concerns and completed an assessment of psychosocialneeds post transplant. Provided education about expectations and requirements post discharge like fol low up in the [facility]. Pt is unsure yet if he will [...] arise prior to discharge. Roopa Castro, CECY, CONSTRUCTION MGR Indu Calixto MD - 02/05/2014 1:50 AM [...] PT - 02/04/2014 4:57 PM CDT 02/04/14 2707 Quick Adds Type of Visit Initial PT Evaluation Bank Clerk Bank Clerk Present no Language Welsh Living Environment (R) Lives With alone Living Arrangements ([facility]) Home Accessibility no concerns Number of [...] up when pt is available. CECY Kearns, [facility] [phone] phone [phone] pager Joseph Quintana MD - 02/04/2014 11:51 [...] Dr. Quintana. Sina Robison MD Nephrology Fellow [phone] Attestation: This patient has been seen and [...] for this basename: PTHI, in the last 50203 hours IRON STUDIES No results found for this basename: IRON, FEB, IRONSAT, THEE, in the last 66781 hours Imaging: All imaging studies reviewed by [...] or equal to 12.0 mlU/mL. Adeline Diaz [phone] Attestation: The patient has been seen and [...] donor kidney transplant, with stent on 02/02/14. OIL WELL DRILLER donor. Graft function:uncertain, Cr slightly up. Slow [...] . Medical Decision Making: Medium Subsequent visit 36637 (moderate level decision making) PATO/Fellow/Resident Provider: Caitlin [...] and orders. Migel Merchant MD, PhD student Abdominal Organ Transplantation Carmelita Rosario, RN - 02/03/2014 9:38 AM CDT Patient removed from the OS waitlist after donor kidney transplant. OS ID is [id number]. Rafaela Cardona - 02/03/2014 9:17 AM CDT [...] followed general diet. 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 CURRENT NUTRITION ORDERS [...] DDKT ASSESSED NUTRITION NEEDS: Estimated Energy Needs: 1336-2725+ kcals (25-30+ Kcal/Kg) Justification: maintenance post-transplant Estimated [...] (6- 8 weeks). 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 Implementation Nutrition education: Provided instruction on post-transplant diet with discussion regarding protein sources and high protein needs in acute post-tx phase. 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 [...] adjustment. Rafaela Cardona RD, LD Weekend Coverage [phone] Jose Aguirre MD - 02/03/2014 4:57 AM [...] Doing well postoperatively. Pain: Controlled by Dilaudid SILVER BUFFER Diet: NPO tonight Volume Status: Borderline low UOP, continue MIVF, 0.9 % NS 500 cc bolus given for low UOP, CVP not accurate, systolic in 100-110 Recheck hemoglobin and potassium normal. Rest of the plan per primary team. Will continue to follow. Jose Aguirre MD PGY-1.................02/03/2014 Surgery Cross Cover Pager:[phone] documented in this encounter H&P Notes Caitlin [...] 1 tablet by mouth daily. ??? 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 Kidney bx [...] and orders. Migel Merchant MD, PhD student Abdominal Organ Transplantation documented in this encounter Consult Notes Joseph Rodriguez MD - 02/04/2014 11:03 AM CDTAssociated Order(s): CARDIOLOGY IP CONSULT [facility] CARDIOLOGY CONSULT SERVICE INITIAL CONSULT [...] 1 tablet by mouth daily. ??? 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 José Miguel Alvarez MD Airway Traffic Controller Pager: [phone] February 04, 2014 Kaitlynn Leon MD - 02/03/2014 9:30 AM CDT Nephrology Initial Consult February 03, 2014 Diego Guthrie Date of : 1950 Date of Admission:02/02/2014 Primary care provider: Momo Forbes Requesting physician: Migel Merchant MD ASSESSMENT AND RECOMMENDATIONS: 1. DDKT - OIL WELL DRILLER -59 yo women; slow graft function-no immediate need for dialysis , but may require tomorrow if UO does not sweet pickle maker. We will monitor Induction with Thymo/Cellcept and [...] h/o type 2 Dm, who received DDKT (OIL WELL DRILLER) on 02/02/2014 donor kidney had severe atherosclerotic [...] ??? Cataract iol, rt/lt both eyes MEDICATIONS: CHALK MACHINE OPERATOR Meds Prior to Admission medications Medication Sig Last Dose Taking? Auth Provider Calcium Carbonate-Vitamin D (CALCIUM + D PO) Take by mouth daily. Reported, Patient lisinopril (PRINIVIL,ZESTRIL) 40 MG tablet Take 40 mg by mouth 2 times daily. Reported, Patient METOPROLOL SUCCINATE PO Take by mouth daily. Reported, Patient aspirin 81 MG tablet Take 1 tablet by mouth daily. Reported, Patient B gdctvvb-C-rmuhm acid (NEPHROCAPS) 1 MG capsule Take 1 [...] Intravenous Central line Once ??? HYDROmorphone Intravenous SILVER BUFFER Infusion Meds ??? 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 Alvin Diego Cardiovascular Disease Fellow [phone] Patient seen and examined by me with [...] Cullen MD, PhD Jarad Cullen MD, PhD [phone] documented in this encounter Nursing Notes Gretta Mary RN - 02/02/2014 11:[address] Owens with Transplant Surgery notified of stat lab results. Magnesium replaced. Dr. Blank with Anesthesia reviewed chest x-ray. CVC not deep enough to give accurate CVP readings, however all lumens aspirate blood well. Patient is ok to transfer to unit 6B per [facility]. documented in this encounter Miscellaneous Notes Plan of Care - Amanda Hernandez RN - 02/08/2014 3:44 PM CDT Problem: IP GENERAL POC-ADULT,OB,BEHAVIORAL FVCPM Goal: Individualization/Patient-Specific Goal (Adult,OB,Behavioral The patient and/or their surgical sales representative will achieve their patient-specific goals [...] Report called to Saima in [facility]. Left facility accompanied by s.o at 1600. Plan of Care - Amanda Hernandez RN - 02/08/2014 2:13 PM CDT Problem: IP GENERAL POC-ADULT,OB,BEHAVIORAL FVCPM Goal: Individualization/Patient-Specific Goal (Adult,OB,Behavioral The patient and/or their surgical sales representative will achieve their patient-specific goals [...] Individualization/Patient-Specific Goal (Adult,OB,Behavioral The patient and/or their surgical sales representative will achieve their patient-specific goals [...] Individualization/Patient-Specific Goal (Adult,OB,Behavioral The patient and/or their surgical sales representative will achieve their patient-specific goals [...] Diet recommendations post-transplant: Heart healthy dietary habits assisted (low saturated/trans fat, low sodium). High protein diet x 8 weeks. Practice food safety precautions - no fish/seafood x 3 weeks. Inez Luevano MS, RD, LD Pager [phone] Pharmacy-Immunosuppression Monitoring - Em Vasquez [facility] - 02/07/2014 9:06 AM CDT Tacrolimus [...] will continue to follow. Em Vasquez, Pharm.D., [facility] Pager [phone] Plan of Care - Annmarie Colby RN - 02/07/2014 5:11 AM CDT Problem: IP GENERAL POC-ADULT,OB,BEHAVIORAL FVCPM Goal: Individualization/Patient-Specific Goal (Adult,OB,Behavioral The patient and/or their surgical sales representative will achieve their patient-specific goals [...] Individualization/Patient-Specific Goal (Adult,OB,Behavioral The patient and/or their surgical sales representative will achieve their patient-specific goals [...] increased fluid intake, urine color is becoming supervisor pleating( tea color/bloody- >dark sy/tea color). Incisional pain [...] Physical Therapy Goals The patient and/or their surgical sales representative will achieve their patient-specific goals [...] Physical Therapy Goals The patient and/or their surgical sales representative will achieve their patient-specific goals [...] Individualization/Patient-Specific Goal (Adult,OB,Behavioral The patient and/or their surgical sales representative will achieve their patient-specific goals [...] Individualization/Patient-Specific Goal (Adult,OB,Behavioral The patient and/or their surgical sales representative will achieve their patient-specific goals [...] Physical Therapy Goals The patient and/or their surgical sales representative will achieve their patient-specific goals [...] at this time. Pharmacy - Cayetano Olivera, [facility] - 02/05/2014 12:26 PM CDT Visited 02/05/2014 in hospital room prior to discharge to review medications, review discharge process and review specialty pharmacy program. Med Review: Reviewed patient's medications and medical conditions. Patient would like to use [facility] to manage all medications. Medcard: [...] Specialty Pharmacy review: Discussed the benefits of [facility] and Diego has enrolled. Also gave him supplies (blood pressure cuff, thermometer, and pill box) Other concerns: No other concerns at this time. No further questions for this pharmacist. Inez Cox, Student Pharmacist Monitoring Coordinator [facility] [address] [place] [id number] Cayetano Olivera, Pharmacist [facility] [phone] Pharmacy-Anticoagulation Service - Teresa Wright [facility] - 02/05/2014 11:29 AM CDT Clinical [...] Individualization/Patient-Specific Goal (Adult,OB,Behavioral The patient and/or their surgical sales representative will achieve their patient-specific goals [...] melonie hard time making full sentences. When teletypewriter installer came on shift at 8pm patient was [...] Individualization/Patient-Specific Goal (Adult,OB,Behavioral The patient and/or their surgical sales representative will achieve their patient-specific goals [...] Physical Therapy Goals The patient and/or their surgical sales representative will achieve their patient-specific goals [...] by friend. Pt transferred to chair, VSS, oceanographic meteorologist on, oriented to room. Pharmacy-Admission Medication History - Teresa Wright [facility] - 02/04/2014 11:54 AM CDT Admission medication history interview status for the 02/02/2014 admission is complete. See [facility] admission navigator for allergy information, prior to admission medications and immunization status. Medication history interview sources (including written lists, pill bottles, clinic record):Patient Medication history source reliability:Good Primary pharmacy:[facility] phone number: [phone] Changes made to CHALK MACHINE OPERATOR medication list (reason) Added: Vitamin D [...] at Unknown time Yes Reported, Patient B fbnnunq-B-qkvib acid (NEPHROCAPS) 1 MG capsule Take 1 [...] Individualization/Patient-Specific Goal (Adult,OB,Behavioral The patient and/or their surgical sales representative will achieve their patient-specific goals [...] 45 minutes and remains in A-fib via licensed occupational therapist. Repeat EKG around 1000 showed continued Afibl. [...] Physical Therapy Goals The patient and/or their surgical sales representative will achieve their patient-specific goals related to the plan of care. The patient-specific goals include: PT 7A: HOLD for AM per RN - pt with a-fib this morning. Plan of Care - Alisson Diane RN - 02/04/2014 6:45 AM CDT Problem: IP GENERAL POC-ADULT,OB,BEHAVIORAL FVCPM Goal: Individualization/Patient-Specific Goal (Adult,OB,Behavioral The patient and/or their surgical sales representative will achieve their patient-specific goals [...] Individualization/Patient-Specific Goal (Adult,OB,Behavioral The patient and/or their surgical sales representative will achieve their patient-specific goals [...] to yellow. Pharmacy-Transplant Note - Davina Schuster [facility] - 02/03/2014 4:28 PM CDT Adult [...] Individualization/Patient-Specific Goal (Adult,OB,Behavioral The patient and/or their surgical sales representative will achieve their patient-specific goals related to the plan of care. The patient-specific goals include: 1. Pt will remain hemodynamically stable 2. Pt will have adequate urine output 3. Pt will be free of falls. RD Patient will verbalize understanding of 3 important aspects of post-transplant diet guidelines. PO intake >50% meals TID once diet adv. Report taken from [facility] on 6B; patient transferred to from 6B via wheelchair around 1500. Patientsettled into room, oriented to floor/room and call light. VS taken. Orders released. Continue ordersas written and notify MD with any concerns. Plan of Care - Sofie Christianson RN - 02/03/2014 2:59 PM CDT Problem: IP GENERAL POC-ADULT,OB,BEHAVIORAL FVCPM Goal: Plan of Care Review (Adult,OB,Behavioral) The patient and/or their surgical sales representative will communicate an understanding of [...] algorithm 2, 1 unit now. Pt still [id number] NC to maintain sats above 90 % [...] Individualization/Patient-Specific Goal (Adult,OB,Behavioral The patient and/or their surgical sales representative will achieve their patient-specific goals [...] Intermittent sharp R lower abd pain. Dilaudid SILVER BUFFER encouraged, increased to 0.2//.2. R lower abd [...] 0200 made 20cc/hr, at 0300 made 30cc/hr. [place]/red tinged urine. MIVF @ 125/hr. VSS. HR 70s, BPs 100s-120s/60s. No new orders at this time. Will continue to monitor. Plan of Care - Tasia Andrade RN - 02/03/2014 12:00 AM CDT Pt arrived to 6B from PACU, s/p DDKT. A&O x3-4. VSS. [place]/red urine output. Small amt drainage on abd [...] Type 2 Diabetes. The patient received [facility] offer for a Donor OIL WELL DRILLER (expanded criteria donor) kidney transplant. After discussing [...] The UNOS number of the donor is [id number]. The crossmatch was done prospectively; and the [...] reconstruction. FACULTY SURGEON: Migel Merchant M.D., Ph.D. FELLOW/BUILDING ARCHITECT SURGEON: Caitlin Owens MD fellow ANESTHESIA: None VERIFICATION: Prior to incision, I verified the donor ABO and recipient ABO. After the donor organ arrived to the operating room and prior to anastamosis, I visually verified that the donor identification, blood type, and other vital data were compatible with the recipient. FINDINGS: Donor type: OIL WELL DRILLER (expanded criteria donor) Organ: kidney Graft Injury: [...] Individualization/Patient-Specific Goal (Adult,OB,Behavioral The patient and/or their surgical sales representative will achieve their patient-specific goals [...] Individualization/Patient-Specific Goal (Adult,OB,Behavioral The patient and/or their surgical sales representative will achieve their patient-specific goals [...] Signature Tacrolimus Not Provided [facility] Last Dose [facility] Tacrolimus 10.0 5.0 - [facility] Level 15.0 ug/L [facility] Comment: Tacrolimus Reference Range Kidney Transplant [...] LAB - BLOOD ORDERABLES Performing Organization Address City/[facility]/ZIP Code Phon e Number [facility] [address] LABS (ABNORMAL) INR (02/08/2014 6:42 AM [...] Phon e Number [facility] [address] LABS (ABNORMAL) Basic metabolic panel (02/08/2014 6:42 AM CDT) Patholo gist Method Time Signature Sodium 144 133 - 144 [facility] mmol/L [facility] Potassium 3.9 3.4 - 5.3 [facility] mmol/L [facility] Chloride 110 (H) 94 - 109 [facility] mmol/L [facility] Carbon Dioxide 25 20 - 32 [facility] mmol/L [facility] Anion Gap 8 6 - 17 [facility] mmol/L [facility] Glucose 144 (H) 60 - 99 [facility] mg/dL [facility] Urea Nitrogen 66 (H) 7 - 30 [facility] mg/dL [facility] Creatinine 2.38 (H) 0.66 - [facility] 1.25 mg/dL [facility] GFR Estimate 28 (L) >60 [facility] mL/min/1.7 [place] m2 CAMPUS LABS GFR Estimate If 34 (L) >60 [facility] [place] mL/min/1.7 [place] [address] CAMPUS LABS Calcium 9.4 8.5 - 10.4 [facility] mg/dL [facility] Specimen Anatomical Collection Method Collection Time Receive d Time (Source) Location / / Volume Laterality Blood specimen 02/08/2014 6:42 AM 014 6:43 (specimen) CDT AM CDT Omaira Chavez PA-C LAB - BLOOD ORDERABLES Performing Organization Address City/[facility]/ZIP Code Phon e Number [address] LABS Phosphorus (02/08/2014 6:42 AM CDT) P athologist Signature Phosphorus 2.5 2.5 - 4.5 [facility] mg/dL [place] [facility] Specimen Anatomical Collection Method Collection Time Receive d Time (Source) Location / / Volume Laterality Blood specimen 02/08/2014 6:42 AM 014 6:43 (specimen) CDT AM CDT Omaira Chavez PA-C LAB - BLOOD ORDERABLES Performing Organization Address City/[facility]/ZIP Code Phon e Number [address] LABS Magnesium (02/08/2014 6:42 AM CDT) athologist Signature Magnesium 2.2 1.6 - 2.3 [facility] mg/dL [place] [facility] Specimen Anatomical Collection Method Collection Time Receive d Time (Source) Location / / Volume Laterality Blood specimen 02/08/2014 6:42 AM 014 6:43 (specimen) CDT AM CDT Omaira Chavez PA-C LAB - BLOOD ORDERABLES Performing Organization Address City/[facility]/ZIP Code Phon e Number [address] LABS (ABNORMAL) CBC with platelets differential (02/08/2014 6:42 AM CDT) Patholo gist Method Time Signature WBC 4.8 4.0 - [facility] 11.0 [place] 10e9/L [place] LABS RBC Count 2.56 (L) 4.4 - 5.9 [facility] 10e12/L [facility] LABS Hemoglobin 7.8 (L) 13.3 - [facility] 17.7 g/dL [facility] LABS Hematocrit 23.5 (L) 40.0 - [facility] 53.0 % [facility] LABS MCV 92 78 - 100 [facility] fl [facility] LABS MCH 30.5 26.5 - [facility] 33.0 pg [facility] [place] [facility] MCHC 33.2 31.5 - [facility] 36.5 g/dL [facility] LABS RDW 14.5 10.0 - [facility] 15.0 % [facility] LABS Platelet Count 70 (L) 150 - 450 [facility] 10e9/L [facility] LABS Diff Method Automated [facility] Method [facility] LABS % Neutrophils 86.3 % [facility] LABS % Lymphocytes 3.1 % [facility] LABS % Monocytes 9.4 % [facility] LABS % Eosinophils 1.0 % [facility] % Basophils 0.0 % [facility] % Immature 0.2 % [facility] Granulocytes [facility]S Absolute 4.1 1.6 - 8.3 [facility] Neutrophil 10e9/L [facility] LABS Absolute 0.2 (L) 0.8 - 5.3 [facility] Lymphocytes 10e9/L [facility] LABS Absolute 0.5 0.0 - 1.3 [facility] Monocytes 10e9/L [facility]S Absolute 0.1 0.0 - 0.7 [facility] Eosinophils 10e9/L [facility] LABS Absolute 0.0 0.0 - 0.2 [facility] Basophils 10e9/L [facility] LABS Abs Immature 0.0 0 - 0.4 [facility] Granulocytes 10e9/L [facility] LABS Specimen Anatomical Collection Method Collection Time Receive d Time (Source) Location / / Volume Laterality Blood specimen 02/08/2014 6:42 AM 014 6:43 (specimen) CDT AM CDT Omaira Chavez PA-C LAB - BLOOD ORDERABLES Performing Organization Address City/State/ZIP Code Phon e Number [facility] [address] [place], [place] [id number] [place] [address] LABS (ABNORMAL) Glucose by meter (02/07/2014 10:18 PM CDT) P athologist Signature Glucose 233 (H) 60 - 99 POINT OF CARE mg/dL TEST, GLUCOSE Specimen Anatomical Collection Method Collection Time Receive d Time (Source) Location / / Volume Laterality 02/07/2014 10:18 02/07/2014 PM CDT 10:20 PM CDT Migel Merchant MD LAB - BEAKER POCT Performing Organization Address [facility] Phon e Number FV POINT OF [...] LAB - BEAKER POCT Performing Organization Address [facility] Phon e Number FV POINT OF [...] LAB - BEAJ POCT Performing Organization Address [facility] Phon e Number FV POINT OF [...] LAB - BEAJ POCT Performing Organization Address [facility] Phon e Number FV POINT OF [...] 7:50 CDT AM CDT Migel Merchant MD [facility] POCT [...] Address City/State/ZIP Code Phon e Number [id number] [place] [address] LABS (ABNORMAL) Basic metabolic panel (02/07/2014 4:23 AM CDT) [facility] gist Method Time Signature Sodium 143 133 - 144 [facility] mmol/L [facility] LABS Potassium 4.1 3.4 - 5.3 [facility] mmol/L [facility] LABS Chloride 109 94 - 109 [facility] mmol/L [facility] LABS Carbon Dioxide 24 20 - 32 [facility] mmol/L [facility] LABS Anion Gap 10 6 - 17 [facility] mmol/L [facility] LABS Glucose 185 (H) 60 - 99 [facility] mg/dL [facility] LABS Urea Nitrogen 77 (H) 7 - 30 [facility] mg/dL [facility] LABS Creatinine 3.02 (H) 0.66 - [facility] 1.25 mg/dL [facility] LABS GFR Estimate 21 (L) >60 [facility] mL/min/1.7 [place] m2 CAMPUS LABS GFR Estimate If 26 (L) >60 [facility] Black mL/min/1.7 [place] [address] CAMPUS LABS Calcium 9.3 8.5 - 10.4 [facility] mg/dL [facility] LABS Specimen Anatomical Collection Method Collection Time Receive d Time (Source) Location / / Volume Laterality Blood specimen 02/07/2014 4:23 AM 014 4:24 (specimen) CDT AM CDT Omaira Chavez PA-C LAB - BLOOD ORDERABLES Performing Organization Address City/[facility]/ZIP Code Phon e Number [address] LABS Phosphorus (02/07/2014 4:23 AM CDT) P athologist Signature Phosphorus 3.5 2.5 - 4.5 [facility] mg/dL [place] LABS Specimen Anatomical Collection Method Collection Time Receive d Time (Source) Location / / Volume Laterality Blood specimen 02/07/2014 4:23 AM 014 4:24 (specimen) CDT AM CDT Omaira Chavez PA-C LAB - BLOOD ORDERABLES Performing Organization Address City/State/ZIP Code Phon e Number [address] LABS Magnesium (02/07/2014 4:23 AM CDT) P athologist Signature Magnesium 2.1 1.6 - 2.3 [facility] mg/dL [place] LABS Specimen Anatomical Collection Method Collection Time Receive d Time (Source) Location / / Volume Laterality Blood specimen 02/07/2014 4:23 AM 014 4:24 (specimen) CDT AM CDT Omaira Chavez PA-C LAB - BLOOD ORDERABLES Performing Organization Address City/State/ZIP Code Phon e Number [address] LABS (ABNORMAL) CBC with platelets differential (02/07/2014 4:23 AM CDT) Patholo gist Method Time Signature WBC 2.7 (L) 4.0 - [facility] 11.0 [place] 10e9/L [place] LABS RBC Count 2.80 (L) 4.4 - 5.9 [facility] 10e12/L [facility] LABS Hemoglobin 8.5 (L) 13.3 - [facility] 17.7 g/dL [facility] LABS Hematocrit 25.8 (L) 40.0 - [facility] 53.0 % [facility] LABS MCV 92 78 - 100 [facility] fl [facility] LABS MCH 30.4 26.5 - [facility] 33.0 pg [facility] LABS MCHC 32.9 31.5 - [facility] 36.5 g/dL [facility] LABS RDW 14.5 10.0 - [facility] 15.0 % [facility] LABS Platelet Count 77 (L) 150 - 450 [facility] 10e9/L [facility] LABS Diff Method Automated [facility] Method [facility] LABS % Neutrophils 87.5 % [facility] % Lymphocytes 3.8 % [facility] % Monocytes 8.7 % [facility] % Eosinophils 0.0 % [facility] % Basophils 0.0 % [facility] % Immature 0.0 % [facility] Granulocytes [facility] LABS Absolute 2.3 1.6 - 8.3 [facility] Neutrophil 10e9/L [facility] LABS Absolute 0.1 (L) 0.8 - 5.3 [facility] Lymphocytes 10e9/L [facility] LABS Absolute 0.2 0.0 - 1.3 [facility] Monocytes 10e9/L [facility] LABS Absolute 0.0 0.0 - 0.7 [facility] Eosinophils 10e9/L [facility] LABS Absolute 0.0 0.0 - 0.2 [facility] Basophils 10e9/L [facility] LABS Abs Immature 0.0 0 - 0.4 [facility] Granulocytes 10e9/L [facility] LABS Specimen Anatomical Collection Method Collection Time Receive d Time (Source) Location / / Volume Laterality Blood specimen 02/07/2014 4:23 AM 014 4:24 (specimen) CDT AM CDT Omaira Chavez PA-C LAB - BLOOD ORDERABLES Performing Organization Address City/State/ZIP Code Phon e Number [phone] [place] [address] LABS (ABNORMAL) Hemoglobin A1c (02/07/2014 4:23 AM CDT) Analysis Performed At Patho logist Time Signature Hemoglobin A1C 6.1 (H) 4.3 - 6.0 [facility] % [facility] LABS Specimen Anatomical Collection Method Collection Time Receive d Time (Source) Location / / Volume Laterality Blood specimen 02/07/2014 4:23 AM 014 4:24 (specimen) CDT AM CDT Omaira Chavez PA-C LAB - BLOOD ORDERABLES Performing Organization Address City/State/ZIP Code Phon e Number [address] [address] [facility] LABS (ABNORMAL) Glucose by meter (02/06/2014 [...] Hemoglobin 8.8 (L) 13.3 - 17.7 [facility] g/dL [place] LABS Specimen Anatomical Collection Method Collection Time Receive d Time (Source) Location / / Volume Laterality Blood specimen 02/06/2014 4:59 PM 014 5:12 (specimen) CDT PM CDT Omaira Chavez PA-C LAB - BLOOD ORDERABLES Performing Organization Address City/[facility]/ZIP Code Phon e Number [facility] [address] LABS (ABNORMAL) Glucose by meter (02/06/2014 12:01 PM CDT) athologist Signature Glucose 181 (H) 60 - 99 POINT OF CARE mg/dL TEST, GLUCOSE Specimen Anatomical Collection Method Collection Time Receive d Time (Source) Location / / Volume Laterality 02/06/2014 12:01 02/06/2014 PM CDT 12:05 PM CDT Migel Merchant MD LAB - BEAKER POCT Performing Organization Address City/[facility]/ZIP Code Phon e Number FV POINT [...] LAB - BLOOD ORDERABLES Performing Organization Address City/[facility]/ZIP Code Phon e Number [facility] [address] [place], [place] [phone] [place] [address] LABS Heparin Xa (10a) Level (02/06/2014 5:57 AM CDT) athologist Signature Heparin 10A 0.92 IU/mL Smallpox [...] LAB - BLOOD ORDERABLES Performing Organization Address City/[facility] Code Phon e Number [facility] [address] LABS (ABNORMAL) INR (02/06/2014 5:57 AM CDT) P athologist Signature INR 1.32 (H) 0.86 - 1.14 [facility] LABS Specimen Anatomical Collection Method Collection Time Receive d Time (Source) Location / / Volume Laterality Blood specimen 02/06/2014 5:57 AM 014 6:03 (specimen) CDT AM CDT Omaira Chavez PA-C LAB - BLOOD ORDERABLES Performing Organization Address City/State/ZIP Code Phon e Number [facility] [address] LABS (ABNORMAL) Basic metabolic panel (02/06/2014 5:57 AM CDT) Patholo gist Method Time Signature Sodium 142 133 - 144 [facility] mmol/L [facility] LABS Potassium 4.7 3.4 - 5.3 [facility] mmol/L [facility] LABS Chloride 106 94 - 109 [facility] mmol/L [facility] LABS Carbon Dioxide 28 20 - 32 [facility] mmol/L [facility] LABS Anion Gap 8 6 - 17 [facility] mmol/L [facility] LABS Glucose 196 (H) 60 - 99 [facility] mg/dL [facility] LABS Urea Nitrogen 71 (H) 7 - 30 [facility] mg/dL [facility] LABS Creatinine 3.96 (H) 0.66 - [facility] 1.25 mg/dL [facility] [place] LAB[facility] GFR Estimate 15 (L) >60 [facility] mL/min/1.7 [place] m2 CAMPUS LABS GFR Estimate If 19 (L) >60 [facility] Black mL/min/1.7 [place] m2 CAMPUS LABS Calcium 9.4 8.5 - 10.4 [facility] mg/dL [facility] LABS Specimen Anatomical Collection Method Collection Time Receive d Time (Source) Location / / Volume Laterality Blood specimen 02/06/2014 5:57 AM 014 6:03 (specimen) CDT AM CDT Omaira Chavez PA-C LAB - BLOOD ORDERABLES Performing Organization Address City/State/ZIP Code Phon e Number [facility] [address] LABS Phosphorus (02/06/2014 5:57 AM CDT) P athologist Signature Phosphorus 4.5 2.5 - 4.5 [facility] mg/dL [place] LABS Specimen Anatomical Collection Method Collection Time Receive d Time (Source) Location / / Volume Laterality Blood specimen 02/06/2014 5:57 AM 014 6:03 (specimen) CDT AM CDT Omaira Chavez PA-C LAB - BLOOD ORDERABLES Performing Organization Address City/State/ZIP Code Phon e Number [facility] [address] LABS Magnesium (02/06/2014 5:57 AM CDT) P athologist Signature Magnesium 1.9 1.6 - 2.3 [facility] mg/dL [place] LABS Specimen Anatomical Collection Method Collection Time Receive d Time (Source) Location / / Volume Laterality Blood specimen 02/06/2014 5:57 AM 014 6:03 (specimen) CDT AM CDT Omaira Chavez PA-C LAB - BLOOD ORDERABLES Performing Organization Address City/State/ZIP Code Phon e Number [facility] [address] [place], [place] [phone] [place] [address] LABS (ABNORMAL) CBC with platelets differential (02/06/2014 5:57 AM CDT) Patholo gist Method Time Signature WBC 5.1 4.0 - [facility] 11.0 [facility] 10e9/L [place] [facility] RBC Count 3.13 (L) 4.4 - 5.9 [facility] 10e12/L [facility] LABS Hemoglobin 9.6 (L) 13.3 - [facility] 17.7 g/dL [facility] LABS Hematocrit 29.0 (L) 40.0 - [facility] 53.0 % [facility] LABS MCV 93 78 - 100 [facility] fl [facility] LABS MCH 30.7 26.5 - [facility] 33.0 pg [facility] LABS MCHC 33.1 31.5 - [facility] 36.5 g/dL [facility] LABS RDW 14.5 10.0 - [facility] 15.0 % [facility] LABS Platelet Count 85 (L) 150 - 450 [facility] 10e9/L [facility] LABS Diff Method Automated [facility] Method [facility] LABS % Neutrophils 86.0 % [facility] LABS % Lymphocytes 5.1 % [facility] % Monocytes 8.7 % [facility] % Eosinophils 0.0 % [facility] % Basophils 0.0 % [facility]S % Immature 0.2 % [facility] Granulocytes [facility] LABS Absolute 4.4 1.6 - 8.3 [facility] Neutrophil 10e9/L [facility]S Absolute 0.3 (L) 0.8 - 5.3 [facility] Lymphocytes 10e9/L [facility]S Absolute 0.4 0.0 - 1.3 [facility] Monocytes 10e9/L [facility] Absolute 0.0 0.0 - 0.7 [facility] Eosinophils 10e9/L [facility] Absolute 0.0 0.0 - 0.2 [facility] Basophils 10e9/L [facility] Abs Immature 0.0 0 - 0.4 [facility] Granulocytes 10e9/L [facility] LABS Specimen Anatomical Collection Method Collection Time Receive d Time (Source) Location / / Volume Laterality Blood specimen 02/06/2014 5:57 AM 014 6:03 (specimen) CDT AM CDT Omaira Chavez PA-C LAB - BLOOD ORDERABLES Performing Organization Address City/State/ZIP Code Phon e Number [facility] [address] [place] [address] [facility] LABS (ABNORMAL) Lipid panel reflex to [...] mg/dL. Triglycerides 100 0 - 150 mg/dL [facility] [place] LABS HDL Cholesterol 35 (L) >40 mg/dL [facility] LABS LDL Cholesterol Calculated 71 0 - 129 mg/dL [facility] LABS Comment: LDL Cholesterol is the primary guide to therapy: LDL-cholesterol goal in high risk patients is <100 mg/dL and in very high risk patients is <70 mg/dL. VLDL-Cholesterol 20 0 - 30 mg/dL [facility] Cholesterol/HDL Ratio 3.6 0.0 - 5.0 [facility] LABS Specimen Anatomical Collection Method Collection Time Receive d Time (Source) Location / / Volume Laterality Blood specimen 02/06/2014 5:57 AM 014 6:03 (specimen) CDT AM CDT Omaira Chavez PA-C LAB - BLOOD ORDERABLES Performing Organization Address City/State/ZIP Code Phon e Number [facility] [address] LABS Tacrolimus level (02/06/2014 5:57 AM CDT) Patholo gist Method Time Signature Tacrolimus S Negative [facility] Last Dose [facility] LABS Tacrolimus 12.7 5.0 - [facility] Level 15.0 ug/L [facility]S Comment: Tacrolimus Reference Range Kidney Transplant [...] Phon e Number [facility] [address] [place] [address] [facility] LABS (ABNORMAL) Glucose by meter (02/06/2014 [...] (L) 13.3 - [facility] 17.7 g/dL [place] LABS Specimen Anatomical Collection Method Collection Time Receive d Time (Source) Location / / Volume Laterality Blood specimen 02/06/2014 1:02 AM 014 1:11 (specimen) CDT AM CDT Deysi Alicea MD LAB - BLOOD ORDERABLES Performing Organization Address City/State/ZIP Code Phon e Number [facility] [address] [place], [place] [phone] [place] [address] LABS (ABNORMAL) Glucose by meter (02/05/2014 10:23 PM CDT) P athologist Signature Glucose 254 (H) 60 - 99 POINT OF CARE mg/dL TEST, GLUCOSE Specimen Anatomical Collection Method Collection Time Receive d Time (Source) Location / / Volume Laterality 02/05/2014 10:23 02/05/2014 PM CDT 10:25 PM CDT Migel Merchant MD LAB - BEAKER POCT Performing Organization Address City/[facility] Code Phon e Number [...] Address City/State/ZIP Code Phon e Number [address] [address] [facility] LABS (ABNORMAL) Glucose by meter (02/05/2014 [...] PM CDT 12:10 PM CDT Teresa Wright [facility] LAB - BLOOD ORDERABLES Performing Organization Address City/[facility]/ZIP Code Phon e Number [address] LABS (ABNORMAL) CBC with platelets (02/05/2014 12:04 PM CDT) Patholo gist Method Time Signature WBC 7.4 4.0 - 11.0 [facility] 10e9/L [facility] LABS RBC Count 3.31 (L) 4.4 - 5.9 [facility] 10e12/L [facility] LABS Hemoglobin 10.3 (L) 13.3 - [facility] 17.7 g/dL [facility] LABS Hematocrit 31.0 (L) 40.0 - [facility] 53.0 % [facility] LABS MCV 94 78 - 100 [facility] fl [facility]S MCH 31.1 26.5 - [facility] 33.0 pg [facility]S MCHC 33.2 31.5 - [facility] 36.5 g/dL [facility] LABS RDW 14.7 10.0 - [facility] 15.0 % [facility]S Platelet Count 91 (L) 150 - 450 [facility] 10e9/L [facility] LABS Specimen Anatomical Collection Method Collection Time Receive d Time (Source) Location / / Volume Laterality Blood specimen 02/05/2014 12:04 4 (specimen) PM CDT 12:10 PM CDT Omaira Chavez PA-C LAB - BLOOD ORDERABLES Performing Organization Address City/[facility]/ZIP Code Phon e Number [facility] [place] [address] [address] [facility] LABS (ABNORMAL) Glucose by meter (02/05/2014 11:25 AM CDT) P athologist Signature Glucose 190 (H) 60 - 99 POINT OF CARE mg/dL TEST, GLUCOSE Specimen Anatomical Collection Method Collection Time Receive d Time (Source) Location / / Volume Laterality 02/05/2014 11:25 02/05/2014 AM CDT 11:30 AM CDT Migel Merchant MD LAB - BEAKER POCT Performing Organization Address City/[facility]/ZIP Code Phon e Number FV POINT [...] LAB - BEAJ POCT Performing Organization Address City/[facility]/ZIP Code Phon e Number FV POINT [...] LAB - BEAJ POCT Performing Organization Address City/[facility]/ZIP Code Phon e Number FV POINT [...] Sodium 143 133 - 144 [facility] mmol/L [facility] LABS Potassium 4.3 3.4 - 5.3 [facility] mmol/L [facility] LABS Chloride 107 94 - 109 [facility] mmol/L [facility]S Carbon Dioxide 25 20 - 32 [facility] mmol/L [facility]S Anion Gap 10 6 - 17 [facility] mmol/L [facility]S Glucose 123 (H) 60 - 99 [facility] mg/dL [facility]S Urea Nitrogen 66 (H) 7 - 30 [facility] mg/dL [facility]S Creatinine 4.77 (H) 0.66 - [facility] 1.25 mg/dL [facility] LABS GFR Estimate 12 (L) >60 [facility] mL/min/1.7 [place] m2 [facility]AMP[facility] LABS GFR Estimate If 15 (L) >60 [facility] Black mL/min/1.7 [place] m2 [facility]AMP[facility] LABS Calcium 9.4 8.5 - 10.4 [facility] mg/dL [facility]S Specimen Anatomical Collection Method Collection Time Receive d Time (Source) Location / / Volume Laterality Blood specimen 02/05/2014 7:02 AM 014 7:05 (specimen) CDT AM CDT Omaira Chavez PA-C LAB - BLOOD ORDERABLES Performing Organization Address City/[facility]/ZIP Code Phon e Number [address] LABS (ABNORMAL) Phosphorus (02/05/2014 7:02 AM CDT) P athologist Signature Phosphorus 5.7 (H) 2.5 - 4.5 [facility] mg/dL CAMPUS LABS Specimen Anatomical Collection Method Collection Time Receive d Time (Source) Location / / Volume Laterality Blood specimen 02/05/2014 7:02 AM 014 7:05 (specimen) CDT AM CDT Omaira Chavez PA-C LAB - BLOOD ORDERABLES Performing Organization Address City/[facility]/ZIP Code Phon e Number [address] [facility] LABS Magnesium (02/05/2014 7:02 AM CDT) P athologist Signature Magnesium 2.0 1.6 - 2.3 [facility] mg/dL [place] [facility] Specimen Anatomical Collection Method Collection Time Receive d Time (Source) Location / / Volume Laterality Blood specimen 02/05/2014 7:02 AM 014 7:05 (specimen) CDT AM CDT Omaira Chavez PA-C LAB - BLOOD ORDERABLES Performing Organization Address City/State/ZIP Code Phon e Number [facility] [address] [place] [address] [facility] LABS (ABNORMAL) CBC with platelets differential (02/05/2014 7:02 AM CDT) Patholo gist Method Time Signature WBC 8.9 4.0 - [facility] 11.0 [facility] 10e9/L [place] [facility]S RBC Count 3.20 (L) 4.4 - 5.9 [facility] 10e12/L [facility]S Hemoglobin 9.7 (L) 13.3 - [facility] 17.7 g/dL [facility]S Hematocrit 30.0 (L) 40.0 - [facility] 53.0 % [facility] MCV 94 78 - 100 [facility] fl [facility] MCH 30.3 26.5 - [facility] 33.0 pg [facility] MCHC 32.3 31.5 - [facility] 36.5 g/dL [facility] RDW 14.6 10.0 - [facility] 15.0 % [facility]S Platelet Count 96 (L) 150 - 450 [facility] 10e9/L [facility]S Diff Method Automated [facility] Method [facility] % Neutrophils 90.2 % [facility] LABS % Lymphocytes 4.4 % [facility] % Monocytes 5.2 % [facility] % Eosinophils 0.0 % [facility] % Basophils 0.0 % [facility] % Immature 0.2 % [facility] Granulocytes [facility] Absolute 8.1 1.6 - 8.3 [facility] Neutrophil 10e9/L [facility] Absolute 0.4 (L) 0.8 - 5.3 [facility] Lymphocytes 10e9/L [facility] Absolute 0.5 0.0 - 1.3 [facility] Monocytes 10e9/L [facility] Absolute 0.0 0.0 - 0.7 [facility] Eosinophils 10e9/L [facility] Absolute 0.0 0.0 - 0.2 [facility] Basophils 10e9/L [facility] Abs Immature 0.0 0 - 0.4 [facility] Granulocytes 10e9/L [facility] Specimen Anatomical Collection Method Collection Time Receive d Time (Source) Location / / Volume Laterality Blood specimen 02/05/2014 7:02 AM 014 7:05 (specimen) CDT AM CDT Omaira Chavez PA-C LAB - BLOOD ORDERABLES Performing Organization Address City/State/ZIP Code Phon e Number [facility] [address] LABS (ABNORMAL) Parathormone intact (02/05/2014 7:02 AM CDT) Patholo gist Method Time Signature Parathyroid 362 (H) 12 - 72 [facility] Hormone Intact pg/mL [facility] Specimen Anatomical Collection Method Collection Time Receive d Time (Source) Location / / Volume Laterality Blood specimen 02/05/2014 7:02 AM 014 7:05 (specimen) CDT AM CDT Sina Robison MD LAB - BLOOD ORDERABLES Performing Organization Address City/State/ZIP Code Phon e Number [address] LABS (ABNORMAL) Ferritin (02/05/2014 7:02 AM CDT) P athologist Signature Ferritin 932 (H) 20 - 300 [facility] ng/mL [place] LABS Specimen Anatomical Collection Method Collection Time Receive d Time (Source) Location / / Volume Laterality Blood specimen 02/05/2014 7:02 AM 014 7:05 (specimen) CDT AM CDT Sina Robison MD LAB - BLOOD ORDERABLES Performing Organization Address City/[facility]/ZIP Code Phon e Number [address] [address] LABS (ABNORMAL) Iron and iron binding capacity (02/05/2014 7:02 AM CDT) Analysis Performed At Patho logist Time Signature Iron 119 35 - 180 [facility] ug/dL [facility] LAB[facility] Iron Binding 207 (L) 240 - 430 [facility] Cap ug/dL [facility] LABS Iron Saturation 58 (H) 15 - 46 % [facility] Index [facility] LABS Specimen Anatomical Collection Method Collection Time Receive d Time (Source) Location / / Volume Laterality Blood specimen 02/05/2014 7:02 AM 014 7:05 (specimen) CDT AM CDT Snia Robison MD LAB - BLOOD ORDERABLES Performing Organization Address City/State/ZIP Code Phon e Number [facility] [address] [place] [address] [facility] LABS (ABNORMAL) Glucose by meter (02/05/2014 6:59 AM CDT) P athologist Signature Glucose 123 (H) 60 - 99 POINT OF CARE mg/dL TEST, GLUCOSE Specimen Anatomical Collection Method Collection Time Receive d Time (Source) Location / / Volume Laterality 02/05/2014 6:59 AM 4 7:05 CDT AM CDT Migel LARES - ROBERT POCT Performing Organization Address City/[facility]/ZIP Code Phon e Number FV POINT [...] CDT Migel JONES POCT Performing Organization Address City/[facility]/ZIP Code Phon e Number FV POINT [...] LAB - BEAJ POCT Performing Organization Address City/[facility]/ZIP Code Phon e Number FV POINT [...] LAB - BEAJ POCT Performing Organization Address City/[facility]/ZIP Code Phon e Number FV POINT [...] CDT Migel JONES POCT Performing Organization Address [facility] Phon e Number FV POINT OF [...] LARES - ROBERT POCT Performing Organization Address [facility] Phon e Number FV POINT OF CARE TEST, GLUCOSE POINT OF CARE TEST, GLUCOSE EKG 12-lead, complete (02/04/2014 11:09 PM CDT) [facility] gist Method Time Signature Interpretation ECG Click View RADIOLOGY Image link RESULTS to view waveform and result Specimen (Source) Anatomical Collection Method Collection Time Re ceived Time Location / / Volume Laterality 02/04/2014 11:09 PM CDT Chemo Carr MD ECG ORDERABLES Performing Organization Address [facility] Phon e Number RADIOLOGY RESULTS (ABNORMAL) Glucose by meter (02/04/2014 10:56 PM CDT) P athologist Signature Glucose 161 (H) 60 - 99 POINT OF CARE mg/dL TEST, GLUCOSE Specimen Anatomical Collection Method Collection Time Receive d Time (Source) Location / / Volume Laterality 02/04/2014 10:56 02/04/2014 PM CDT 11:00 PM CDT Migel JONES POCT Performing Organization Address [facility] Phon e Number FV POINT OF [...] LAB - BEAJ POCT Performing Organization Address City/[facility]/ZIP Code Phon e Number FV POINT [...] LARES - BEAKER POCT Performing Organization Address City/[facility]/ZIP Code Phon e Number FV POINT OF CARE TEST, GLUCOSE POINT OF CARE TEST, GLUCOSE Troponin I (02/04/2014 7:10 PM CDT) athologist Signature Troponin I 0.016 0.000 - [facility] 0.034 ug/L CAMPUS LABS Specimen Anatomical Collection Method Collection Time Receive d Time (Source) Location / / Volume Laterality Blood specimen 02/04/2014 7:10 PM 014 7:23 (specimen) CDT PM CDT Adeline Diaz MD LAB - BLOOD ORDERABLES Performing Organization Address City/State/ZIP Code Phon e Number [address] [address] [facility] LABS (ABNORMAL) Glucose by meter (02/04/2014 7:01 PM CDT) P athologist Signature Glucose 157 (H) 60 - 99 POINT OF CARE mg/dL TEST, GLUCOSE Specimen Anatomical Collection Method Collection Time Receive d Time (Source) Location / / Volume Laterality 02/04/2014 7:01 PM 4 7:05 CDT PM CDT Migel Merchant MD LAB - BEAKER POCT Performing Organization Address [facility] Phon e Number FV POINT OF [...] LAB - BEAKER POCT Performing Organization Address [facility] Phon e Number FV POINT OF [...] LAB - BEAKER POCT Performing Organization Address [facility] Phon e Number FV POINT OF [...] LAB - BEAJ POCT Performing Organization Address [facility] Phon e Number FV POINT OF [...] LAB - BEAKER POCT Performing Organization Address [facility] Phon e Number FV POINT OF [...] LAB - BEAJ POCT Performing Organization Address [facility] Phon e Number FV POINT OF CARE TEST, GLUCOSE POINT OF CARE TEST, GLUCOSE Troponin I (02/04/2014 12:42 PM CDT) athologist Signature Troponin I 0.025 0.000 - [facility] 0.034 ug/L [place] LABS Specimen Anatomical Collection Method Collection Time Receive d Time (Source) Location / / Volume Laterality Blood specimen 02/04/2014 12:42 4 (specimen) PM CDT 12:45 PM CDT Adeline Diaz MD LAB - BLOOD ORDERABLES Performing Organization Address City/State/ZIP Code Phon e Number [facility] [address] [place] [address] [facility] LABS (ABNORMAL) Glucose by meter (02/04/2014 [...] CDT Migel JONES POCT Performing Organization Address City/State/[facility] [...] EKG 12-lead, complete (02/04/2014 7:03 AM CDT) [facility] Method Time Signature Interpretation ECG Click [...] Troponin I ES <0.012 0.000 - [facility] 0.034 ug/L CAMPUS LABS Specimen Anatomical Collection Method Collection Time Receive d Time (Source) Location / / Volume Laterality 02/04/2014 5:49 AM 4 5:51 CDT AM CDT Caitlin Owens MD LAB - BLOOD ORDERABLES Performing Organization Address City/State/ZIP Code Phon e Number [address] [place] [address] LABS (ABNORMAL) Basic metabolic panel (02/04/2014 5:49 AM CDT) [facility] Method Time Signature Sodium 142 133 - 144 [facility] mmol/L [facility] LABS Potassium 4.9 3.4 - 5.3 [facility] mmol/L [facility] LABS Chloride 107 94 - 109 [facility] mmol/L [facility] LABS Carbon Dioxide 23 20 - 32 [facility] mmol/L [facility] LABS Anion Gap 12 6 - 17 [facility] mmol/L [facility] LABS Glucose 151 (H) 60 - 99 [facility] mg/dL [facility] LABS Urea Nitrogen 57 (H) 7 - 30 [facility] mg/dL [facility] LABS Creatinine 5.94 (H) 0.66 - [facility] 1.25 mg/dL [facility] LABS GFR Estimate 10 (L) >60 [facility] mL/min/1.7 [place] m2 CAMPUS LABS GFR Estimate If 12 (L) >60 [facility] Black mL/min/1.7 [place] m2 CAMPUS LABS Calcium 9.4 8.5 - 10.4 [facility] mg/dL [facility] LABS Specimen Anatomical Collection Method Collection Time Receive d Time (Source) Location / / Volume Laterality Blood specimen 02/04/2014 5:49 AM 014 5:51 (specimen) CDT AM CDT Omaira Chavez PA-C LAB - BLOOD ORDERABLES Performing Organization Address City/[facility]/ZIP Code Phon e Number [address] LABS (ABNORMAL) Phosphorus (02/04/2014 5:49 AM CDT) P athologist Signature Phosphorus 6.3 (H) 2.5 - 4.5 [facility] mg/dL [place] LABS Specimen Anatomical Collection Method Collection Time Receive d Time (Source) Location / / Volume Laterality Blood specimen 02/04/2014 5:49 AM 014 5:51 (specimen) CDT AM CDT Omaira Chavez PA-C LAB - BLOOD ORDERABLES Performing Organization Address City/State/ZIP Code Phon e Number [facility] [address] LABS Magnesium (02/04/2014 5:49 AM CDT) P athologist Signature Magnesium 2.1 1.6 - 2.3 [facility] mg/dL [place] LABS Specimen Anatomical Collection Method Collection Time Receive d Time (Source) Location / / Volume Laterality Blood specimen 02/04/2014 5:49 AM 014 5:51 (specimen) CDT AM CDT Omaira Chavez PA-C LAB - BLOOD ORDERABLES Performing Organization Address City/State/ZIP Code Phon e Number [facility] [address] [place] [address] [facility] (ABNORMAL) CBC with platelets differential (02/04/2014 5:49 AM CDT) [facility] gist Method Time Signature WBC 13.8 (H) 4.0 - [facility] 11.0 UNIVERSITY 10e9/L CAMPUS LABS RBC Count 3.10 (L) 4.4 - 5.9 [facility] 10e12/L [facility] LABS Hemoglobin 9.5 (L) 13.3 - [facility] 17.7 g/dL [facility] LABS Hematocrit 28.7 (L) 40.0 - [facility] 53.0 % [facility] LABS MCV 93 78 - 100 [facility] fl [facility]S MCH 30.6 26.5 - [facility] 33.0 pg [facility]S MCHC 33.1 31.5 - [facility] 36.5 g/dL [facility]S RDW 14.6 10.0 - [facility] 15.0 % [facility]S Platelet Count 91 (L) 150 - 450 [facility] 10e9/L [facility] LABS Diff Method Automated [facility] Method [facility] LABS % Neutrophils 95.8 % [facility] LABS % Lymphocytes 1.2 % [facility] LABS % Monocytes 2.8 % [facility] LABS % Eosinophils 0.0 % [facility] LABS % Basophils 0.0 % [facility] LABS % Immature 0.2 % [facility] Granulocytes [facility] LABS Absolute 13.2 (H) 1.6 - 8.3 [facility] Neutrophil 10e9/L [facility]S Absolute 0.2 (L) 0.8 - 5.3 [facility] Lymphocytes 10e9/L [facility]S Absolute 0.4 0.0 - 1.3 [facility] Monocytes 10e9/L [facility]S Absolute 0.0 0.0 - 0.7 [facility] Eosinophils 10e9/L [facility]S Absolute 0.0 0.0 - 0.2 [facility] Basophils 10e9/L [facility]S Abs Immature 0.0 0 - 0.4 [facility] Granulocytes 10e9/L [facility] LABS Specimen Anatomical Collection Method Collection Time Receive d Time (Source) Location / / Volume Laterality Blood specimen 02/04/2014 5:49 AM 014 5:51 (specimen) CDT AM CDT Omaira Chavez PA-C LAB - BLOOD ORDERABLES Performing Organization Address City/State/ZIP Code Phon e Number [address] [address] [facility] LABS (ABNORMAL) Glucose by meter (02/04/2014 [...] LARES - BEAJ POCT Performing Organization Address City/[facility]/ZIP Code Phon e Number FV POINT [...] LAB - BEAJ POCT Performing Organization Address City/[facility]/ZIP Code Phon e Number FV POINT [...] LAB - BEAKER POCT Performing Organization Address City/[facility]/ZIP Code Phon e Number FV POINT OF CARE TEST, GLUCOSE POINT OF CARE TEST, GLUCOSE Potassium (02/03/2014 10:16 PM CDT) P athologist Signature Potassium 4.8 3.4 - 5.3 [facility] mmol/L CAMPUS LABS Specimen Anatomical Collection Method Collection Time Receive d Time (Source) Location / / Volume Laterality Blood specimen 02/03/2014 10:16 4 (specimen) PM CDT 10:19 PM CDT Caitlin Owens MD LAB - BLOOD ORDERABLES Performing Organization Address City/State/ZIP Code Phon e Number [facility] [address] [place], [place] [phone] [place] [address] LABS (ABNORMAL) Hemoglobin (02/03/2014 10:16 PM CDT) P athologist Signature Hemoglobin 9.4 (L) 13.3 - 17.7 [facility] g/dL [place] LABS Specimen Anatomical Collection Method Collection Time Receive d Time (Source) Location / / Volume Laterality Blood specimen 02/03/2014 10:16 4 (specimen) PM CDT 10:19 PM CDT Caitlin Owens MD LAB - BLOOD ORDERABLES Performing Organization Address City/[facility]/ZIP Code Phon e Number [address] [address] [facility] LABS (ABNORMAL) Glucose by meter (02/03/2014 9:55 PM CDT) athologist Signature Glucose 167 (H) 60 - 99 POINT OF CARE mg/dL TEST, GLUCOSE Specimen Anatomical Collection Method Collection Time Receive d Time (Source) Location / / Volume Laterality 02/03/2014 9:55 PM 4 CDT 10:00 PM CDT Migel LARES - ROBERT POCT Performing Organization Address City/[facility]/ZIP Code Phon e Number FV POINT [...] Signature Potassium 4.7 3.4 - 5.3 [facility] mmol/L CAMPUS LABS Specimen Anatomical Collection Method Collection Time Receive d Time (Source) Location / / Volume Laterality Blood specimen 02/03/2014 6:52 PM 014 6:53 (specimen) CDT PM CDT Caitlin Owens MD LAB - BLOOD ORDERABLES Performing Organization Address City/[facility]/ZIP Code Phon e Number [facility] [address] LABS (ABNORMAL) Hemoglobin (02/03/2014 6:52 PM CDT) athologist Signature Hemoglobin 9.6 (L) 13.3 - 17.7 [facility] g/dL CAMPUS LABS Specimen Anatomical Collection Method Collection Time Receive d Time (Source) Location / / Volume Laterality Blood specimen 02/03/2014 6:52 PM 014 6:53 (specimen) CDT PM CDT Caitlin Owens MD LAB - BLOOD ORDERABLES Performing Organization Address City/[facility]/ZIP Code Phon e Number [facility] [address] LABS (ABNORMAL) Glucose by meter (02/03/2014 6:00 PM CDT) athologist Signature Glucose 140 (H) 60 - 99 POINT OF CARE mg/dL TEST, GLUCOSE Specimen Anatomical Collection Method Collection Time Receive d Time (Source) Location / / Volume Laterality 02/03/2014 6:00 PM 4 6:05 CDT PM CDT Migel Merchant MD LAB - BEAJ POCT Performing Organization Address [facility]/ZIP Code Phon e Number FV POINT [...] LAB - ROBERT POCT Performing Organization Address [facility] Phon e Number FV POINT OF [...] LAB - BEAJ POCT Performing Organization Address [facility] Phon e Number FV POINT OF [...] LAB - BEAJ POCT Performing Organization Address [facility] Phon e Number FV POINT OF CARE TEST, GLUCOSE POINT OF CARE TEST, GLUCOSE Potassium (02/03/2014 1:41 PM CDT) P athologist Signature Potassium 4.7 3.4 - 5.3 [facility] mmol/L CAMPUS LABS Specimen Anatomical Collection Method Collection Time Receive d Time (Source) Location / / Volume Laterality Blood specimen 02/03/2014 1:41 PM 014 1:43 (specimen) CDT PM CDT Caitlin Owens MD LAB - BLOOD ORDERABLES Performing Organization Address City/[facility]/ZIP Code Phon e Number [phone] [place] [address] LABS (ABNORMAL) Hemoglobin (02/03/2014 1:41 PM CDT) athologist Signature Hemoglobin 9.8 (L) 13.3 - 17.7 [facility] g/dL CAMPUS LABS Specimen Anatomical Collection Method Collection Time Receive d Time (Source) Location / / Volume Laterality Blood specimen 02/03/2014 1:41 PM 014 1:43 (specimen) CDT PM CDT Caitlin Owens MD LAB - BLOOD ORDERABLES Performing Organization Address [facility] Code Phon e Number [phone] [place] [address] LABS (ABNORMAL) Glucose by meter (02/03/2014 1:10 PM CDT) athologist Signature Glucose 135 (H) 60 - 99 POINT OF CARE mg/dL TEST, GLUCOSE Specimen Anatomical Collection Method Collection Time Receive d Time (Source) Location / / Volume Laterality 02/03/2014 1:10 PM 4 1:15 CDT PM CDT Migel Merchant MD LAB - BEAKER POCT Performing Organization Address City/[facility]/ZIP Code Phon e Number FV POINT [...] 02/03/2014 AM CDT 11:10 AM CDT Migel Mercahnt MD LAB - BEAKER POCT Performing Organization Address City/State/ZIP Code Phon e Number FV POINT OF CARE TEST, GLUCOSE POINT OF CARE TEST, GLUCOSE Potassium (02/03/2014 10:11 AM CDT) P athologist Signature Potassium 4.8 3.4 - 5.3 [facility] mmol/L CAMPUS LABS Specimen Anatomical Collection Method Collection Time Receive d Time (Source) Location / / Volume Laterality Blood specimen 02/03/2014 10:11 4 (specimen) AM CDT 10:23 AM CDT Caitlin Owens MD LAB - BLOOD ORDERABLES Performing Organization Address City/State/ZIP Code Phon e Number [facility] [address] LABS (ABNORMAL) Hemoglobin (02/03/2014 10:11 AM CDT) P athologist Signature Hemoglobin 9.7 (L) 13.3 - 17.7 [facility] g/dL CAMPUS LABS Specimen Anatomical Collection Method Collection Time Receive d Time (Source) Location / / Volume Laterality Blood specimen 02/03/2014 10:11 4 (specimen) AM CDT 10:23 AM CDT Caitlin Owens MD LAB - BLOOD ORDERABLES Performing Organization Address City/State/ZIP Code Phon e Number [facility] [address] LABS (ABNORMAL) Glucose by meter (02/03/2014 [...] below the renal anastomosis. Procedure Note Airam oMntana MD - 02/03/2014Formatt [...] metabolic panel (02/03/2014 5:38 AM CDT) [facility] gist Method Time Signature Sodium 141 [...] Address City/State/ZIP Code Phon e Number [address] [address] [facility] UNIV[facility]ITY [facility]AMP[facility] LABS (ABNORMAL) [...] Phon e Number [facility] [address] LABS Magnesium (02/03/2014 5:38 AM CDT) P athologist Signature Magnesium 2.0 1.6 - 2.3 [facility] mg/dL [place] LABS Specimen Anatomical Collection Method Collection Time Receive d Time (Source) Location / / Volume Laterality Blood specimen 02/03/2014 5:38 AM 014 5:40 (specimen) CDT AM CDT Omaira Chavez PA-C LAB - BLOOD ORDERABLES Performing Organization Address City/[facility]/ZIP Code Phon e Number [facility] [address] LABS (ABNORMAL) CBC with platelets differential (02/03/2014 5:38 AM CDT) Patholo gist Method Time Signature WBC 13.2 (H) 4.0 - [facility] 11.0 [facility] 10e9/L [place] LABS RBC Count 3.20 (L) 4.4 - 5.9 [facility] 10e12/L [facility] LABS Hemoglobin 9.9 (L) 13.3 - [facility] 17.7 g/dL [facility] LABS Hematocrit 30.2 (L) 40.0 - [facility] 53.0 % [facility]S MCV 94 78 - 100 [facility] fl [facility]S MCH 30.9 26.5 - [facility] 33.0 pg [facility] MCHC 32.8 31.5 - [facility] 36.5 g/dL [facility]S RDW 14.5 10.0 - [facility] 15.0 % [facility]S Platelet Count 108 (L) 150 - 450 [facility] 10e9/L [facility]S Diff Method Automated [facility] Method [facility] LABS % Neutrophils 96.9 % [facility] LABS % Lymphocytes 0.7 % [facility] LABS % Monocytes 2.1 % [facility] LABS % Eosinophils 0.0 % [facility] UNIVERSITY [...] 0.0 0.0 - 0.2 [facility] Basophils 10e9/L [place] [facility] LABS Abs Immature 0.0 0 - 0.4 [facility] Granulocytes 10e9/L [facility] LABS Specimen Anatomical Collection Method Collection Time Receive d Time (Source) Location / / Volume Laterality Blood specimen 02/03/2014 5:38 AM 014 5:40 (specimen) CDT AM CDT Omaira Chavez PA-C LAB - BLOOD ORDERABLES Performing Organization Address City/State/ZIP Code Phon e Number [address] LABS (ABNORMAL) Hemoglobin A1c (02/03/2014 5:38 AM CDT) Analysis Performed At Patho logist Time Signature Hemoglobin A1C 6.2 (H) 4.3 - 6.0 [facility] % [facility] LABS Specimen Anatomical Collection Method Collection Time Receive d Time (Source) Location / / Volume Laterality Blood specimen 02/03/2014 5:38 AM 014 5:40 (specimen) CDT AM CDT Caitlin Owens MD LAB - BLOOD ORDERABLES Performing Organization Address City/State/ZIP Code Phon e Number [address] LABS (ABNORMAL) Glucose by meter (02/03/2014 [...] Signature Potassium 4.7 3.4 - 5.3 [facility] mmol/L [place] LABS Specimen Anatomical Collection Method Collection Time Receive d Time (Source) Location / / Volume Laterality Blood specimen 02/03/2014 1:18 AM 014 1:20 (specimen) CDT AM CDT Caitlin Owens MD LAB - BLOOD ORDERABLES Performing Organization Address City/[facility]/ZIP Code Phon e Number [address] LABS (ABNORMAL) Hemoglobin (02/03/2014 1:18 AM CDT) P athologist Signature Hemoglobin 9.8 (L) 13.3 - 17.7 [facility] g/dL [place] LABS Specimen Anatomical Collection Method Collection Time Receive d Time (Source) Location / / Volume Laterality Blood specimen 02/03/2014 1:18 AM 014 1:20 (specimen) CDT AM CDT Caitlin Owens MD LAB - BLOOD ORDERABLES Performing Organization Address City/[facility]/ZIP Code Phon e Number [address] LABS (ABNORMAL) Glucose by meter (02/03/2014 1:16 AM CDT) P athologist Signature Glucose 186 (H) 60 - 99 POINT OF CARE mg/dL TEST, GLUCOSE Specimen Anatomical Collection Method Collection Time Receive d Time (Source) Location / / Volume Laterality 02/03/2014 1:16 AM 4 1:20 CDT AM CDT Migel Merchant MD LAB - BEAKER POCT Performing Organization Address City/[facility]/ZIP Code Phon e Number FV POINT [...] LAB - BEAKER POCT Performing Organization Address City/[facility]/ZIP Code Phon e Number FV POINT [...] Signature Phosphorus 4.4 2.5 - 4.5 [facility] mg/dL CAMPUS LABS Specimen Anatomical Collection Method Collection Time Receive d Time (Source) Location / / Volume Laterality Blood specimen 02/02/2014 10:50 201 4 (specimen) PM CDT 11:06 PM CDT Caitlin Owens MD LAB - BLOOD ORDERABLES Performing Organization Address City/[facility]/ZIP Code Phon e Number [facility] [address] LABS Magnesium (02/02/2014 10:50 PM CDT) athologist Signature Magnesium 1.8 1.6 - 2.3 [facility] mg/dL [place] LABS Specimen Anatomical Collection Method Collection Time Receive d Time (Source) Location / / Volume Laterality Blood specimen 02/02/2014 10:50 201 4 (specimen) PM CDT 11:06 PM CDT Caitlin Owens MD LAB - BLOOD ORDERABLES Performing Organization Address City/[facility]/ZIP Code Phon e Number [facility] [address] LABS (ABNORMAL) Basic metabolic panel (02/02/2014 10:50 PM CDT) [facility] gist Method Time Signature Sodium 138 133 - 144 [facility] mmol/L [facility]S Potassium 4.5 3.4 - 5.3 [facility] mmol/L [facility]S Chloride 104 94 - 109 [facility] mmol/L [facility]S Carbon Dioxide 25 20 - 32 [facility] mmol/L [facility]S Anion Gap 10 6 - 17 [facility] mmol/L [facility]S Glucose 134 (H) 60 - 99 [facility] mg/dL [facility] Urea Nitrogen 44 (H) 7 - 30 [facility] mg/dL [facility]S Creatinine 6.14 (H) 0.66 - [facility] 1.25 mg/dL [facility] GFR Estimate 9 (L) >60 [facility] mL/min/1.7 [place] [address] CAMPUS LABS GFR Estimate If 11 (L) >60 [facility] Black mL/min/1.7 [place] [address] CAMPUS LABS Calcium 8.8 8.5 - 10.4 [facility] mg/dL [facility] Specimen Anatomical Collection Method Collection Time Receive d Time (Source) Location / / Volume Laterality Blood specimen 02/02/2014 10:50 4 (specimen) PM CDT 11:06 PM CDT Caitlin Ownes MD LAB - BLOOD ORDERABLES Performing Organization Address City/State/ZIP Code Phon e Number [facility] [address] [place] [address] [place] [facility] CBC with platelets differential (02/02/2014 10:50 PM CDT) [facility] gist Method Time Signature WBC 8.2 4.0 - [facility] 11.0 [facility] 10e9/L [place] LABS RBC Count 3.34 (L) 4.4 - 5.9 [facility] 10e12/L [facility]S Hemoglobin 10.3 (L) 13.3 - [facility] 17.7 g/dL [facility]S Hematocrit 30.9 (L) 40.0 - [facility] 53.0 % [facility] MCV 93 78 - 100 [facility] fl [facility] MCH 30.8 26.5 - [facility] 33.0 pg [place] [facility] MCHC 33.3 31.5 - [facility] 36.5 g/dL [facility] RDW 14.3 10.0 - [facility] 15.0 % [facility] Platelet Count 79 (L) 150 - 450 [facility] 10e9/L [facility] Diff Method Automated [facility] Method [facility] % Neutrophils 96.7 % [facility] % Lymphocytes 1.6 % [facility] % Monocytes 1.2 % [facility] % Eosinophils 0.4 % [facility] % Basophils 0.0 % [facility] % Immature 0.1 % [facility] Granulocytes [facility] Absolute 7.9 1.6 - 8.3 [facility] Neutrophil 10e9/L [facility] Absolute 0.1 (L) 0.8 - 5.3 [facility] Lymphocytes 10e9/L [facility] Absolute 0.1 0.0 - 1.3 [facility] Monocytes 10e9/L [facility] Absolute 0.0 0.0 - 0.7 [facility] Eosinophils 10e9/L [facility] Absolute 0.0 0.0 - 0.2 [facility] Basophils 10e9/L [facility] Abs Immature 0.0 0 - 0.4 [facility] Granulocytes 10e9/L [facility] Specimen Anatomical Collection Method Collection Time Receive d Time (Source) Location / / Volume Laterality Blood specimen 02/02/2014 10:50 4 (specimen) PM CDT 11:06 PM CDT Caitlin Owens MD LAB - BLOOD ORDERABLES Performing Organization Address City/State/ZIP Code Phon e Number [facility] [address] LABS (ABNORMAL) VENOUS PANEL (02/02/2014 10:09 PM CDT) [facility] Method Time Signature Ph Venous 7.31 (L) 7.32 - [facility] 7.43 pH [facility] PCO2 Venous 52 (H) 40 - 50 [facility] mm Hg [facility] PO2 Venous 34 25 - 47 [facility] mm Hg [facility] Bicarbonate 26 21 - 28 [facility] Venous mmol/L [facility] Base Deficit 0.3 mmol/L [facility] Venous [facility] Comment: Reference range: -7.7 to 1.9 FIO2 45 [facility] LABS Sodium 137 133 - 144 mmol/L [facility]S Potassium 4.4 3.4 - 5.3 mmol/L [facility] Hemoglobin 10.0 (L) 13.3 - 17.7 g/dL [facility] LABS Glucose 116 (H) 60 - 99 mg/dL [facility] Calcium Ionized Whole Blood 4.8 4.4 - 5.2 mg/dL [facility] Specimen Anatomical Collection Method Collection Time Receive d Time (Source) Location / / Volume Laterality 02/02/2014 10:09 02/02/2014 PM CDT 10:14 PM CDT Migel Merchant MD LAB - BLOOD ORDERABLES Performing Organization Address City/[facility]/ZIP Code Phon e Number [facility] [address] LABS (ABNORMAL) Glucose by meter (02/02/2014 9:24 PM CDT) P athologist Signature Glucose 129 (H) 60 - 99 POINT OF CARE mg/dL TEST, GLUCOSE Specimen Anatomical Collection Method Collection Time Receive d Time (Source) Location / / Volume Laterality 02/02/2014 9:24 PM 4 9:31 CDT PM CDT Migel Merchant MD LAB - ROBERT POCT Performing Organization Address City/[facility] Phon e Number FV POINT OF [...] LARES - BEAJ POCT Performing Organization Address City/[facility] Phon e Number F[facility] POINT OF CARE TEST, GLUCOSE POINT OF CARE TEST, GLUCOSE (ABNORMAL) VENOUS PANEL (02/02/2014 6:40 PM CDT) P athologist Signature Ph Venous 7.35 7.32 - [facility] 7.43 pH [facility] PCO2 Venous 50 40 - 50 mm [facility] Hg [facility] PO2 Venous 46 25 - 47 mm [facility] Hg [facility] Bicarbonate 28 21 - 28 [facility] Venous mmol/L [facility] Base Excess 1.8 mmol/L [facility] Venous [facility] Comment: Reference range: -7.7 to 1.9 FIO2 100% [facility] LABS Sodium 141 133 - 144 mmol/L [facility]S Potassium 3.7 3.4 - 5.3 mmol/L [facility]S Hemoglobin 10.3 (L) 13.3 - 17.7 g/dL [facility]S Glucose 76 60 - [...] Phon e Number [facility] [address] [place] [address] [facility]S Glucose by meter (02/02/2014 5:11 [...] LAB - BEAKER POCT Performing Organization Address [facility] Phon e Number FV POINT OF [...] MARYELLEN Blood component (02/02/2014 2:07 PM CDT) [facility] Method Time Signature Unit Number [id number] [facility] Blood Red Blood [facility] Component Cells [facility] LABS Reduced Division 00 [facility] LABS Status of No longer [facility] Unit available [facility] 02/06/2014 HOSPITAL LAB 0300 Specimen Anatomical Collection Method Collection Time Receive d Time (Source) Location / / Volume Laterality 02/02/2014 2:07 PM 4 2:10 CDT PM CDT Caitlin Owens MD LABORATORY Performing Organization Address City/[facility]/ZIP Code Phon e Number [place] [address] [place], [place] [address] [facility] LABS [facility] LAB Blood component (02/02/2014 2:07 PM CDT) [facility] Method Time Signature Unit Number [id number] [facility] Blood Red Blood [facility] Component Cells [facility] LABS Reduced Division 00 [facility] LABS Status of No longer [facility] Unit available [facility] 02/06/2014 HOSPITAL LAB 0300 Specimen Anatomical Collection Method Collection Time Receive d Time (Source) Location / / Volume Laterality 02/02/2014 2:07 PM 4 2:10 CDT PM CDT Caitlin Owens MD LABORATORY Performing Organization Address City/[facility]/ZIP Code Phon e Number [place] [address] [place], [place] 55[address] HOSPITAL [facility] LABS [facility] LAB ABO/Rh type and screen (02/02/2014 2:07 PM CDT) Patholo gist Method Time Signature Units Ordered 2 [facility] ABO A [facility] RH(D) Pos [facility] Antibody Neg [facility] Screen [facility] Test Valid [facility] Only At [facility] BLOOD BANK Center,[place] LAB w Hospital Specimen 02/05/2014 [facility] Expires [facility] BLOOD BANK LAB Crossmatch Red Blood [facility] Cells [facility] Specimen Anatomical Collection Method Collection Time Receive d Time (Source) Location / / Volume Laterality Blood specimen 02/02/2014 2:07 PM 014 2:10 (specimen) CDT PM CDT Caitlin Owens MD LAB - BLOOD BANK TEST ORDER Performing Organization Address City/State/ZIP Code Phon e Number [facility] 500 [place], [place] [id number] [place] [address] LABS [facility] BLOOD BANK LAB (ABNORMAL) Lipid Profile [...] mg/dL. Triglycerides 124 0 - 150 mg/dL [facility] LABS HDL Cholesterol 34 (L) >40 mg/dL [facility] [place] [facility] LDL Cholesterol Calculated 77 0 - 129 mg/dL [facility] Comment: LDL Cholesterol is the primary guide to therapy: LDL-cholesterol goal in high risk patients is <100 mg/dL and in very high risk patients is <70 mg/dL. VLDL-Cholesterol 25 0 - 30 mg/dL [facility] Cholesterol/HDL Ratio 4.0 0.0 - 5.0 [facility] LAB[facility] Specimen Anatomical Collection Method Collection Time Receive d Time (Source) Location / / Volume Laterality Blood specimen 02/02/2014 2:07 PM 014 2:08 (specimen) CDT PM CDT Caitlin Owens MD LAB - BLOOD ORDERABLES Performing Organization Address City/[facility]/ZIP Code Phon e Number [facility] [address] LABS (ABNORMAL) Hemoglobin A1c (02/02/2014 2:07 PM CDT) Analysis Performed At Patho logist Time Signature Hemoglobin A1C 6.2 (H) 4.3 - 6.0 [facility] Specimen Anatomical Collection Method Collection Time Receive d Time (Source) Location / / Volume Laterality Blood specimen 02/02/2014 2:07 PM 014 2:08 (specimen) CDT PM CDT Caitlin Owens MD LAB - BLOOD ORDERABLES Performing Organization Address City/[facility]/ZIP Code Phon e Number [facility] [address] LABS Hepatitis C antibody (02/02/2014 2:07 PM CDT) [facility] gist Method Time Signature Hepatitis C Negative NEG [facility] Antibody MICROBIOLOGY Specimen Anatomical Collection Method Collection Time Receive d Time (Source) Location / / Volume Laterality Blood specimen 02/02/2014 2:07 PM 014 2:08 (specimen) CDT PM CDT Caitlin Owens MD LAB - BLOOD ORDERABLES Performing Organization Address City/[facility]/ZIP Code Phon e Number [facility] 500 [place], [place] [id number] [place] [address] MICROBIOLOGY Hepatitis B core antibody IgM (02/02/2014 2:07 PM CDT) [facility] gist Method Time Signature Hepatitis B Negative NEG [facility] Core IgM MICROBIOLOGY Specimen Anatomical Collection Method Collection Time Receive d Time (Source) Location / / Volume Laterality Blood specimen 02/02/2014 2:07 PM 014 2:08 (specimen) CDT PM CDT Caitlin Owens MD LAB - BLOOD ORDERABLES Performing Organization Address City/[facility]/ZIP Code Phon e Number [phone] [place] [address] MICROBIOLOGY Hepatitis B surface antigen (02/02/2014 2:07 PM CDT) [facility] gist Method Time Signature Hep B Surface Negative NEG [facility] Agn MICROBIOLOGY Specimen Anatomical Collection Method Collection Time Receive d Time (Source) Location / / Volume Laterality Blood specimen 02/02/2014 2:07 PM 2 014 2:08 (specimen) CDT PM CDT Caitlin Owens MD LAB - BLOOD ORDERABLES Performing Organization Address City/[facility]/ZIP Code Phon e Number [facility] [address] MICROBIOLOGY HIV Antigen Antibody Combo (02/02/2014 2:07 PM CDT) [facility] Method Time Signature HIV Antigen Nonreactive NR [facility] Antibody HIV-1 p24 Ag & HIV-1/HIV-2 Ab Not Detected [facility] LABS Specimen Anatomical Collection Method Collection Time Receive d Time (Source) Location / / Volume Laterality Blood specimen 02/02/2014 2:07 PM 2 014 2:08 (specimen) CDT PM CDT Caitlin Owens MD LAB - BLOOD ORDERABLES Performing Organization Address City/[facility]/ZIP Code Phon e Number [facility] [address] LABS EBV Capsid Antibody IgM (02/02/2014 2:07 PM CDT) [facility] Method [place] Signature EBV Capsid <0.2 0.0 - 0.8 [facility] Antibody IgM No detectable antibody. [facility] LABS Specimen Anatomical Collection Method Collection Time Receive d Time (Source) Location / / Volume Laterality Blood specimen 02/02/2014 2:07 PM 014 2:08 (specimen) CDT PM CDT Caitlin Owens MD LAB - BLOOD ORDERABLES Performing Organization Address City/[facility]/ZIP Code Phon e Number [facility] [address] LABS (ABNORMAL) EBV Capsid Antibody IgG (02/02/2014 2:07 PM CDT) [facility] Method [place] Signature EBV Capsid >8.0 0.0 - 0.8 [facility] Antibody IgG Positive, suggests recent or past exposure [facility] () [place] LABS Specimen Anatomical Collection Method Collection Time Receive d Time (Source) Location / / Volume Laterality Blood specimen 02/02/2014 2:07 PM 014 2:08 (specimen) CDT PM CDT Caitlin Owens MD LAB - BLOOD ORDERABLES Performing Organization Address City/[facility]/ZIP Code Phon e Number [facility] 500 [place] [address] [facility] LABS CMV antibody IgM (02/02/2014 2:07 PM CDT) Analysis Performed At Patho logist Time Signature CMV Antibody <0.2 0.0 - 0.8 [facility] IgM Negative [facility] LABS Specimen Anatomical Collection Method Collection Time Receive d Time (Source) Location / / Volume Laterality Blood specimen 02/02/2014 2:07 PM 014 2:08 (specimen) CDT PM CDT Caitlin Owens MD LAB - BLOOD ORDERABLES Performing Organization Address City/[facility]/ZIP Code Phon e Number [facility] 500 [place], [place] [phone] [place] [address] LABS (ABNORMAL) CMV Antibody IgG (02/02/2014 2:07 PM CDT) P athologist Signature CMV Antibody 7.8 (H) 0.0 - 0.8 [facility] IgG [facility] LABS Comment: Positive Specimen Anatomical Collection Method Collection Time Receive d Time (Source) Location / / Volume Laterality Blood specimen 02/02/2014 2:07 PM 014 2:08 (specimen) CDT PM CDT Caitlin Owens MD LAB - BLOOD ORDERABLES Performing Organization Address City/[facility]/ZIP Code Phon e Number [facility] 500 [place], [place] [phone] [place] [address] LABS (ABNORMAL) Comprehensive metabolic panel (02/02/2014 2:07 PM CDT) Patholo gist Method Time Signature Sodium 141 133 - 144 [facility] mmol/L [facility] Potassium 4.2 3.4 - 5.3 [facility] mmol/L [facility] Chloride 101 94 - 109 [facility] mmol/L [facility] Carbon Dioxide 26 20 - 32 [facility] mmol/L [facility] Anion Gap 13 6 - 17 [facility] mmol/L [facility] Glucose 112 (H) 60 - 99 [facility] mg/dL [facility] Urea Nitrogen 42 (H) 7 - 30 [facility] mg/dL [facility] Creatinine 6.03 (H) 0.66 - [facility] 1.25 [place] mg/dL CAMPUS LABS GFR Estimate 9 (L) >60 [facility] mL/min/1. [facility] [place] 7m2 [place] [facility] GFR Estimate If 11 (L) >60 [facility] Black mL/min/1. [facility] [address] LABS Calcium 9.9 8.5 - [facility] 10.4 [place] mg/dL [place] [facility] Bilirubin Total 0.7 0.2 - 1.3 [facility] mg/dL [facility] Albumin 4.2 3.3 - 4.9 [facility] g/dL [facility] Protein Total 7.5 6.8 - 8.8 [facility] g/dL [facility] Alkaline 88 40 - 150 [facility] Phosphatase U/L [facility] ALT 33 0 - 70 [facility] U/L [facility] AST 18 0 - 45 [facility] U/L [facility] Specimen Anatomical Collection Method Collection Time Receive d Time (Source) Location / / Volume Laterality Blood specimen 02/02/2014 2:07 PM 014 2:08 (specimen) CDT PM CDT Caitlin Owens MD LAB - BLOOD ORDERABLES Performing Organization Address City/State/ZIP Code Phon e Number [address] LABS (ABNORMAL) CBC with platelets differential (02/02/2014 2:07 PM CDT) [facility] gist Method Time Signature WBC 6.3 4.0 - [facility] 11.0 [place] 10e9/L [place] [facility] RBC Count 3.71 (L) 4.4 - 5.9 [facility] 10e12/L [facility] Hemoglobin 11.5 (L) 13.3 - [facility] 17.7 g/dL [facility] Hematocrit 33.7 (L) 40.0 - [facility] 53.0 % [facility] MCV 91 78 - 100 [facility] fl [facility] MCH 31.0 26.5 - [facility] 33.0 pg [facility] MCHC 34.1 31.5 - [facility] 36.5 g/dL [facility] RDW 14.0 10.0 - [facility] 15.0 % [facility] Platelet Count 110 (L) 150 - 450 [facility] 10e9/L [facility] Diff Method Automated [facility] Method [facility] % Neutrophils 52.4 % [facility] % Lymphocytes 32.1 % [facility] % Monocytes 7.9 % [facility] % Eosinophils 7.1 % [facility] % Basophils 0.3 % [facility] % Immature 0.2 % [facility] Granulocytes [facility] Absolute 3.3 1.6 - 8.3 [facility] Neutrophil 10e9/L [facility] [place] [facility] Absolute 2.0 0.8 - 5.3 [facility] Lymphocytes 10e9/L [facility] Absolute 0.5 0.0 - 1.3 [facility] Monocytes 10e9/L [facility] Absolute 0.5 0.0 - 0.7 [facility] Eosinophils 10e9/L [facility] Absolute 0.0 0.0 - 0.2 [facility] Basophils 10e9/L [facility] Abs Immature 0.0 0 - 0.4 [facility] Granulocytes 10e9/L [facility] Specimen Anatomical Collection Method Collection Time Receive d Time (Source) Location / / Volume Laterality Blood specimen 02/02/2014 2:07 PM 02/02/ 014 2:08 (specimen) CDT PM CDT Caitlin Owens MD LAB - BLOOD ORDERABLES Performing Organization Address City/State/ZIP Code Phon e Number [facility] [address] LABS Creatinine urine calculation only (02/02/2014 2:00 PM CDT) P athologist Signature Creatinine 88 mg/dL [facility] Urine [place] LABS Specimen Anatomical Collection Method Collection Time Receive d Time (Source) Location / / Volume Laterality 02/02/2014 2:00 PM 4 2:12 CDT PM CDT Caitlin Owens MD LAB - URINE ORDERABLES Performing Organization Address City/[facility] Phon e Number [facility] [address] LABS (ABNORMAL) Urine culture (02/02/2014 2:00 PM CDT) Component Value Ref Test Analysis Performed At Patholo gist Range Method Time Signature Specimen Midstream Urine [facility] Special Specimen received [facility] Requests [...] MICRO GENERAL ORDERABL ES Performing Organization Address City/[facility]/ZIP Code Phon e Number [address] LABS [facility] MICROBIOLOGY (ABNORMAL) Protein random urine (02/02/2014 2:00 PM CDT) [facility] Method Time Signature Protein Random 1.89 g/L [facility] Urine [facility] Protein Total 2.15 (H) 0 - 0.2 [facility] Urine g/gr g/g Cr [facility] LABS Specimen Anatomical Collection Method Collection Time Receive d Time (Source) Location / / Volume Laterality Urine specimen URINE SPECIMEN 02/02/2014 2:00 PM 02/02 2:12 (specimen) OBTAINED BY CLEAN CDT PM CDT CATCH PROCEDURE / Unknown Caitlin Owens MD LAB - URINE ORDERABLES Performing Organization Address City/[facility] Phon e Number [address] LABS (ABNORMAL) Routine UA with microscopic (02/02/2014 2:00 PM CDT) [facility] Method Time Signature Color Urine Light Yellow [facility] Appearance Urine Clear [facility] Glucose Urine 70 (A) NEG mg/dL [facility] Bilirubin Urine Negative NEG [facility] Ketones Urine Negative NEG mg/dL [facility] Specific [place] 1.008 1.003 - [facility] Urine 1.035 [facility] Blood Urine Negative NEG [facility] pH Urine 8.0 (H) 5.0 - 7.0 [facility] pH [facility] Protein Albumin 100 (A) NEG mg/dL [facility] Urine [facility] Urobilinogen Normal 0.0 - 2.0 [facility] mg/dL mg/dL [facility] Nitrite Urine Negative NEG [facility] Leukocyte Negative NEG [facility] Esterase Urine [facility] Source Clean catch [facility] urine [facility] WBC Urine 1 0 - 2 [...] Phon e Number [facility] 500 [place] [address] [facility] LABS (ABNORMAL) Glucose by meter (02/02/2014 [...] tracing only (02/02/2014 1:58 PM CDT) [facility] gist Method Time Signature Interpretation ECG Click View RADIOLOGY Image link RESULTS to view waveform and result Specimen (Source) Anatomical Collection Method Collection Time Re ceived Time Location / / Volume Laterality 02/02/2014 1:58 PM CDT Caitlin Owens MD ECG ORDERABLES Performing Organization Address City/[facility]/ZIP [facility] Phon e Number RADIOLOGY RESULTS documented in [...] mL (COMPL ETED) 0915 (Given - Provider: iVry Kessler RN) 1-4 mL (1-4 spray), Mouth/Throat, ONCE, On Tue02/06/14 at 0930, For 1 dose, When verbally ordered by the prescriber. Bode throat with 1-4 sprays 5 minutes prior [...] 1 tablet 1226 (Given - Provider: Lashaun Brasewll RN) 0809 (Given - Provider: Amanda Hernandez RN) Routine, 1 tablet, Oral, DAILY, First do se (after last modification) on Tue02/07/14 at 1200, Indications: PCP prophylaxis tacrolimus (Prograf BRAND) capsule 1.5 mg 2028 (Not Gi isael - Provider: Lynne Gatica [facility] - Reason: Other - Comment: Dose [...] draw. documented in this encounter Care Teams Document Review Specialist Relationship Specialty Start Date End Date Momo Forbes PCP - General Family Practice 01/02/14 [facility] [address] [place] [address] Ingrid Santana, RN Registered Nurse Transplant 02/10/12 documented as of this encounter
--- OUTSIDE RECORDS SUMMARY | 2022-07-05 14:50 | XMS_ITS | Encounter Summary ---
:1950 Author Organization [place] Address [facility] [place] [address] Care Team Providers Name Role Phone Toña [...] (madeleine betes mellitus), type 2 (H) [address] [phone] Social History Tobacco Use Types [...] uncontrolled documented in this encounter Care Teams Pre K Lead Teacher Relationship Specialty Start Date End Date Toña Jones MD PCP - General Nephrology 11/25/11 01/01/14 Ingrid Santana, RN Registered Nurse Transplant 02/10/12 documented as of this encounter
--- OUTSIDE RECORDS SUMMARY | 2022-07-05 14:50 | XMS_ITS | Encounter Summary ---
:1950 Author Organization [place] Address [address] [place] [address] Care Team Providers Name Role Phone Toña Jones MD Primary Care Provider Ingrid Santana RN Unavailable Unavailable Encounter Details Date Type Department Care Team Description 10/11/2012 Results Only LABORATORY RESULTS Barbara Bradley MD [address] [place], [place] [address] Social History Tobacco Use [...] HLA Lukasz Class I Single Antigen (10/11/2012) [facility] gist Method Time Signature SA1 Test Single [...] / Volume Laterality 10/11/2012 10/12/2012 1:03 PM EMBEDDER Barbara Bradley MD LAB - IMMUNOLOGY ORDERABLES Performing Organization Address City/State/ZIP Code Phon e Number [facility] Immunology/Histocompatabil [place], [place] [address] ity [facility] [address] [facility] [address] [address], Room 3-580 HISTOTRAC documented in this encounter Visit Diagnoses Not on filedocumented in this encounter Care Teams Process Manufacturing Engineer Relationship Specialty Start Date End Date Toña Jones MD PCP - General Nephrology 11/25/11 01/01/14 Ingrid Santana, RN Registered Nurse Transplant 02/10/12 documented as of this encounter
--- OUTSIDE RECORDS SUMMARY | 2022-07-05 14:50 | XMS_ITS | Encounter Summary ---
:1950 Author Organization [place] Address [address] [place] [address] Care Team Providers Name Role Phone Ingrid Santana RN Unavailable Unavailable Momo Forbes Primary Care Provider Encounter Details Date Type Department Care Team Description 01/21/2014 Results Only LABORATORY RESULTS Mingo Dangelo MD [address] [facility] [address] [facility] [address] [place] [address] (Wo rk) Social History Tobacco [...] HLA Lukasz Class II Single Antigen (01/21/2014) [facility] gist Method Time Signature SA2 [...] Phon e Number [facility] LABORATORY Immunology/Histocompatabil [place], [place] [address] ity [facility] [address], Room [address]580 HISTOTRAC documented in this encounter Visit Diagnoses Not on filedocumented in this encounter Care Teams Engineering Project Designer Relationship Specialty Start Date End Date Momo Forbes PCP - General Family Practice 01/02/14 [facility] [address] [place] [address] Ingrid Santana, RN Registered Nurse Transplant 02/10/12 documented as of this encounter
--- OUTSIDE RECORDS SUMMARY | 2022-07-05 14:50 | XMS_ITS | Encounter Summary ---
:1950 Author Organization [place] Address [address] [place] [address] Care Team Providers Name Role Phone Ingrid Santana RN Unavailable Unavailable Momo Forbes Primary Care Provider Encounter Details Date Type Department Care Team Description 01/21/2014 Results Only LABORATORY RESULTS Mingo Dangelo MD [address] [facility] [address] [facility] [address] [place] [address] (Wo rk) Social History Tobacco [...] HLA Lukasz Class I Single Antigen (01/21/2014) [facility] gist Method Time Signature SA1 Test [...] Phon e Number [facility] Immunology/Histocompatabil [place], [place] [address] ity [facility] [address] [place] [address], Room 3-580 HISTOTRAC documented in this encounter Visit Diagnoses Not on filedocumented in this encounter Care Teams Engineering Model Maker Relationship Specialty Start Date End Date Momo Forbes PCP - General Family Practice 01/02/14 [facility] [address] [place], [place] [id number] Ingrid Santana, RN Registered Nurse Transplant 02/10/12 documented as of this encounter
--- OUTSIDE RECORDS SUMMARY | 2022-07-05 14:50 | XMS_ITS | Encounter Summary ---
:1950 Author Organization [place] Address [address] [place] [address] Care Team Providers Name Role Phone Toña Jones MD Primary Care Provider Ingrid Santana RN Unavailable Unavailable Encounter Details Date Type Department Care Team Description 02/28/2013 Orders Only [facility] Molly Sanderson Organ transplant 500 [facility] candidate (Primary Dx) [place] [address] Social History Tobacco Use Types Packs/Day Years [...] status documented in this encounter Care Teams Business Intelligence Engineer Relationship Specialty Start Date End Date Toña Jones MD PCP - General Nephrology 11/25/11 01/01/14 Ingrid Santana RN Registered Nurse Transplant 02/10/12 documented as of this encounter
--- OUTSIDE RECORDS SUMMARY | 2022-07-05 14:50 | XMS_ITS | Encounter Summary ---
:1950 Author Organization [place] Address [address] [place] [address] Care Team Providers Name Role Phone Toña Jones MD Primary Care Provider Ingrid Santana RN Unavailable Unavailable Encounter Details Date Type Department Care Team Description 01/17/2013 Results Only LABORATORY RESULTS Barbara Bradley MD [address] [place], [place] [address] Social History Tobacco Use [...] HLA Lukasz Class I Single Antigen (01/17/2013) [facility] gist Method Time Signature SA1 [...] Phon e Number [facility] Immunology/Histocompatabil [place], [place] [address] ity ealth [facility] [address] [facility] [address] Building, Room 3-580 HISTOTRAC documented in this encounter Visit Diagnoses Not on filedocumented in this encounter Care Teams School Photographs Detailer Relationship Specialty Start Date End Date Toña Jones MD PCP - General Nephrology 11/25/11 01/01/14 Ingrid Santana, RN Registered Nurse Transplant 02/10/12 documented as of this encounter
--- OUTSIDE RECORDS SUMMARY | 2022-07-05 14:50 | XMS_ITS | Encounter Summary ---
:1950 Author Organization [place] Address [address] [place] [address] Care Team Providers Name Role Phone Toña Jones MD Primary Care Provider Ingrid Santana RN Unavailable Unavailable Encounter Details Date Type Department Care Team Description 11/05/2013 Results Only LABORATORY RESULTS Barbara Bradley MD [address] [place], [place] [address] Social History Tobacco Use [...] II Single Antigen (11/05/2013 7:20 AM CDT) [facility] gist Method Time Signature SA2 Test [...] Phon e Number [facility] Immunology/Histocompatabil [place], [place] [address] ity ealth [facility] [address], Room 3-580 HISTOTRAC documented in this encounter Visit Diagnoses Not on filedocumented in this encounter Care Teams Music Publicist Relationship Specialty Start Date End Date Toña Jones MD PCP - General Nephrology 11/25/11 01/01/14 Ingrid Santana RN Registered Nurse Transplant 02/10/12 documented as of this encounter
--- OUTSIDE RECORDS SUMMARY | 2022-07-05 14:50 | XMS_ITS | Encounter Summary ---
:1950 Author Organization [place] Address [address] [place] [address] Care Team Providers Name Role Phone Ingrid Santana RN Unavailable Unavailable Momo Forbes Primary Care Provider Encounter Details Date Type Department Care Team Description 01/21/2014 Results Only LABORATORY RESULTS Mingo Dangelo MD [address] [facility] 195 [place] [address] (Wo rk) Social History Tobacco [...] Results HLA Flow T/B Crossmatch Allo (01/21/2014) [facility] gist Method Time Signature Crossmatch Donor:[id number], ?Crossmatch Date:02/02/2014 HISTOTRAC Result (Note) Serum Date [...] Phon e Number [facility] Immunology/Histocompatabil [place], [place] [address] [facility] [address] [facility] [address] Building, Room 3-580 HISTOTRAC documented in this encounter Visit Diagnoses Not on filedocumented in this encounter Care Teams Pottery Machine Operator Relationship Specialty Start Date End Date Momo Forbes PCP - General Family Practice 01/02/14 [facility] [address] [place] [address] Ingrid Santana, RN Registered Nurse Transplant 02/10/12 documented as of this encounter
--- OUTSIDE RECORDS SUMMARY | 2022-07-05 14:50 | XMS_ITS | Encounter Summary ---
:1950 Author Organization [place] Address [address] [place] [address] Care Team Providers Name Role Phone Toña Jones MD Primary Care Provider Ingrid Santana RN Unavailable Unavailable Encounter Details Date Type Department Care Team Description 11/05/2013 Results Only LABORATORY RESULTS Barbara Bradley MD [address] [place], [place] [address] Social History Tobacco Use [...] I Single Antigen (11/05/2013 7:20 AM CDT) [facility] gist Method Time Signature SA1 Test [...] Phon e Number [facility] Immunology/Histocompatabil [place], [place] [address] ity [facility] [address], Room 3-580 HISTOTRAC documented in this encounter Visit Diagnoses Not on filedocumented in this encounter Care Teams Beekeeper Relationship Specialty Start Date End Date Toña Jones MD PCP - General Nephrology 11/25/11 01/01/14 Ingrid Santana, RN Registered Nurse Transplant 02/10/12 documented as of this encounter
--- OUTSIDE RECORDS SUMMARY | 2022-07-05 14:50 | XMS_ITS | Encounter Summary ---
:1950 Author Organization [place] Address [address] [place] [address] Care Team Providers Name Role Phone Ingrid Santana RN Unavailable Unavailable Momo Forbes Primary Care Provider Reason for Visit Reason Onset Date Comments Transplant 02/02/2014 Kidney Offer Encounter Details Date Type Department Care Team Description 02/02/2014 Telephone Transplant Surgery Carmelita Rosario Tran splant (Kidney Clinic RN Offer) 2nd Floor, Clinic [address] [address] Social History Tobacco Use Types [...] on filedocumented in this encounter Care Teams Intervention Manager Relationship Specialty Start Date End Date Momo Forbes PCP - General Family Practice 01/02/[address] [address] Ingrid Santana, RN Registered Nurse Transplant 02/10/12 documented as of this encounter
--- OUTSIDE RECORDS SUMMARY | 2022-07-05 14:50 | XMS_ITS | Encounter Summary ---
:1950 Author Organization [place] Address [address] [place] [address] Care Team Providers Name Role Phone Toña Jones MD Primary Care Provider Ingrid Santana RN Unavailable Unavailable Encounter Details Date Type Department Care Team Description 01/17/2013 Results Only LABORATORY RESULTS Barbara Bradley MD [address] [place], [place] [address] Social History Tobacco Use [...] HLA Lukasz Class II Single Antigen (01/17/2013) [facility] gist Method Time Signature SA2 Test Single [...] Phon e Number [facility] Immunology/Histocompatabil [place], [place] [address] ity [facility] [address] [facility] [address], Room 3-580 HISTOTRAC documented in this encounter Visit Diagnoses Not on filedocumented in this encounter Care Teams Electronic Funds Transfer Coordinator Relationship Specialty Start Date End Date Toña Jones MD PCP - General Nephrology 11/25/11 01/01/14 Ingrid Santana RN Registered Nurse Transplant 02/10/12 documented as of this encounter
--- OUTSIDE RECORDS SUMMARY | 2022-07-05 14:50 | XMS_ITS | Encounter Summary ---
:1950 Author Organization [place] Address [facility] [place] [address] Care Team Providers Name Role Phone Toña [...] on filedocumented in this encounter Care Teams Hollow Core Door Frame Assembler Relationship Specialty Start Date End Date Toña Jones MD PCP - General Nephrology 11/25/11 01/01/14 Momo Forbes PCP - General Family Practice 01/02/[address] [place] [address] Ingrid Santana, RN Registered Nurse Transplant 02/10/12 documented as of this encounter
--- OUTSIDE RECORDS SUMMARY | 2022-07-05 14:50 | XMS_ITS | Encounter Summary ---
:1950 Author Organization [place] Address [facility] [place] [address] Care Team Providers Name Role Phone Toña [...] on filedocumented in this encounter Care Teams Firm Administrator Relationship Specialty Start Date End Date Toña Jones MD PCP - General Nephrology 11/25/11 01/01/14 Momo Forbes PCP - General Family Practice 01/02/[address] [place] [address] Ingrid Santana, RN Registered Nurse Transplant 02/10/12 documented as of this encounter
--- OUTSIDE RECORDS SUMMARY | 2022-07-05 14:50 | XMS_ITS | Encounter Summary ---
:1950 Author Organization [place] Address [address] [place] [address] Care Team Providers Name Role Phone Ingrid Santana RN Unavailable Unavailable Momo Forbes Primary Care Provider Encounter Details Date Type Department Care Team Description 01/20/2014 Orders Only [facility] [place] [address] [phone] [place] [address] 940 [place] [address] (Wo rk) Social History Tobacco [...] Results Tacrolimus level (02/15/2014 8:55 AM CDT) [facility] Method Time Signature Tacrolimus Last 02/14/2014 [facility] Dose 2030 [facility] Tacrolimus 5.9 5.0 - [facility] Level 15.0 ug/L [facility] Comment: Tacrolimus Reference Range Kidney [...] e Number [facility] 500 [place], [place] [phone] [place] [address] LABS documented in this encounter Visit Diagnoses Not on filedocumented in this encounter Care Teams Cloth Carrier Relationship Specialty Start Date End Date Momo Forbes PCP - General Family Practice 01/02/14 [facility] [address] [place] [address] Ingrid Santana, RN Registered Nurse Transplant 02/10/12 documented as of this encounter
--- OUTSIDE RECORDS SUMMARY | 2022-07-05 14:50 | XMS_ITS | Encounter Summary ---
:1950 Author Organization [place] Address [address] [place] [address] Care Team Providers Name Role Phone Toña Jones MD Primary Care Provider Ingrid Santana RN Unavailable Unavailable Encounter Details Date Type Department Care Team Description 07/30/2013 Results Only LABORATORY RESULTS Mingo Dangelo MD [address] [facility] 195 [place] [address] (Wo rk) Social History Tobacco [...] HLA Lukasz Class I Single Antigen (07/30/2013) [facility] gist Method Time Signature SA1 Test [...] / Volume Laterality 07/30/2013 07/31/2013 2:10 PM PAINTER STRUCTURAL STEEL Mingo Dangelo MD LAB - IMMUNOLOGY ORDERABLES Performing Organization Address City/State/ZIP Code Phon e Number [facility] Immunology/Histocompatabil [place], [place] [address] ity [facility] [address], Room 3-580 HISTOTRAC documented in this encounter Visit Diagnoses Not on filedocumented in this encounter Care Teams Midlevel Provider Relationship Specialty Start Date End Date Toña Jones MD PCP - General Nephrology 11/25/11 01/01/14 Ingrid Santana, RN Registered Nurse Transplant 02/10/12 documented as of this encounter
--- OUTSIDE RECORDS SUMMARY | 2022-07-05 14:50 | XMS_ITS | Encounter Summary ---
:1950 Author Organization [place] Address [facility] [place] [address] Care Team Providers Name Role Phone Toña [...] HLA Lukasz Class II Single Antigen (04/16/2013) [facility] gist Method Time Signature SA2 Test [...] Phon e Number [facility] Immunology/Histocompatabil [place], [place] [address] ity [facility] [address], Room 3-580 HISTOTRAC documented in this encounter Visit Diagnoses Not on filedocumented in this encounter Care Teams Early Childhood Teacher Relationship Specialty Start Date End Date Toña Jones MD PCP - General Nephrology 11/25/11 01/01/14 Ingrid Santana, RN Registered Nurse Transplant 02/10/12 documented as of this encounter
--- OUTSIDE RECORDS SUMMARY | 2022-07-05 14:50 | XMS_ITS | Encounter Summary ---
:1950 Author Organization [place] Address [address] [place] [address] Care Team Providers Name Role Phone Toña Jones MD Primary Care Provider Ingrid Santana RN Unavailable Unavailable Encounter Details Date Type Department Care Team Description 12/10/2013 Telephone Transplant Surgery C Nazia Bledsoe LPN 2nd Floor, Clinic 2A [place] [phone] Social History Tobacco Use Types Packs/Day [...] filedocumented in this encounter Care Teams Relay Tester Relationship Specialty Start Date End Date Toña Jones MD PCP - General Nephrology 11/25/11 01/01/14 Ingrid Santana, RN Registered Nurse Transplant 02/10/12 documented as of this encounter
--- OUTSIDE RECORDS SUMMARY | 2022-07-05 14:50 | XMS_ITS | Encounter Summary ---
:1950 Author Organization [place] Address [facility] [place] [address] Care Team Providers Name Role Phone Toña [...] PCP - General Family Practice 01/02/[address] [place] [address] Ingrid Santana, RN Registered Nurse Transplant 02/10/12 documented as of this encounter
--- OUTSIDE RECORDS SUMMARY | 2022-07-05 14:51 | XMS_ITS | Encounter Summary ---
:1950 Author Organization [place] Address [address] [place] [address] Care Team Providers Name Role Phone Toña Jones MD Primary Care Provider Reason for Visit (Routine) - Closed Specialty Diagnoses / Procedures Referred By Contact Refer red To Contact Cardiology Diagnoses ECHO CLINIC COMPLETE ADULT Procedure Notes: DIABETES MELLITUS, TYPE 2,END STAGE RENAL DISEASE,Transplant eval,Performing Location?->[facility] Echocardiography Procedures RADIOLOGY 500 [place] [address] Phone: Referral ID Status Reason Start Date Expiration Date Visits Requ ested Visits Authorized [id number] Closed 01/21/2012 01/20/2013 1 1 Encounter Details Date Type Department Care Team Description 02/08/2012 [facility] Hass an, MD [address] [address] [facility] 353 [place] [address] Diabetes mellitus, type 2 (H); Echocardiography Rajat German MD [address] [facility] 276 [place] [address] End stage renal disease (H) 500 [place] [address] Social History Tobacco Use Types [...] tablet by mouth 0 02/18/2014 daily. B cjobcjm-M-libyc acid Take 1 capsule by mouth 0 [...] - Clinic (PWB) (02/08/2012 1:13 PM CDT) [facility] Method Time Signature XCELERA RADIOLOGY Interpretation Summary [...] disease documented in this encounter Care Teams Metal Tank Erector Relationship Specialty Start Date End Date Toña Jones MD PCP - General Nephrology 11/25/11 01/01/14 documented as of this encounter
--- OUTSIDE RECORDS SUMMARY | 2022-07-05 14:51 | XMS_ITS | Encounter Summary ---
:1950 Author Organization [place] Address [address] [place] [address] Care Team Providers Name Role Phone Toña Jones MD Primary Care Provider Encounter Details Date Type Department Care Team Description 02/08/2012 Orders Only [facility] Thomas, Ty Blink, End sta ge kidney Pulmonary Function MD disease ( H) (Primary Laboratory Dx) 6th Floor 500 [place] [address] Social History Tobacco Use Types [...] Lab Testing (Generic) (02/08/2012 8:35 AM CDT) [facility] Method Time Signature Pulmonary COPATH Function Test Name: ? ELINOR GUTHRIE ? ID: ?[id number] Doctor: ?JESUS THOMAS ?Height: ?72.00 in ? [...] INTERPRETATION: The FVC, FEV1, FEV1/FVC ratio and DQY11-20% are within normal limits. ??The inspiratory flow [...] disease documented in this encounter Care Teams Christmas Tree Farm Worker Relationship Specialty Start Date End Date Toña Jones MD PCP - General Nephrology 11/25/11 01/01/14 documented as of this encounter
--- OUTSIDE RECORDS SUMMARY | 2022-07-05 14:51 | XMS_ITS | Encounter Summary ---
:1950 Author Organization [place] Address [address] [place] [address] Care Team Providers Name Role Phone Toña Jones MD Primary Care Provider Ingrid Santana RN Unavailable Unavailable Encounter Details Date Type Department Care Team Description 10/11/2012 Results Only LABORATORY RESULTS Barbara Bradley MD [address] [place], [place] [address] Social History Tobacco Use [...] HLA Lukasz Class II Single Antigen (10/11/2012) [facility] gist Method Time Signature SA2 Test [...] / Volume Laterality 10/11/2012 10/12/2012 1:03 PM GREY TENDER [place] Suseekar Bradley MD LAB - IMMUNOLOGY ORDERABLES Performing Organization Address City/State/ZIP Code Phon e Number [facility] Immunology/Histocompatabil [place], [place] [address] ity [facility] 500 [facility] [address] Building, Room 3-580 HISTOTRAC documented in this encounter Visit Diagnoses Not on filedocumented in this encounter Care Teams Dining Server Relationship Specialty Start Date End Date Toña Jones MD PCP - General Nephrology 11/25/11 01/01/14 Ingrid Santana, RN Registered Nurse Transplant 02/10/12 documented as of this encounter
--- OUTSIDE RECORDS SUMMARY | 2022-07-05 14:51 | XMS_ITS | Encounter Summary ---
:1950 Author Organization [place] Address [address] [place] [address] Care Team Providers Name Role Phone Toña Jones MD Primary Care Provider Ingrid Santana RN Unavailable Unavailable Encounter Details Date Type Department Care Team Description 02/08/2012 Orders Only [facility] Jesus Cardenas Di abetes mellitus, type 2 (H); [facility] Gordo oneal MD End stage renal disease (H); [address] [place] [address] Social History Tobacco Use Types Packs/Day Years [...] Results ABO type (02/08/2012 1:52 PM CDT) [facility] Method Time Signature ABO A [facility] RH(D) Pos [facility] Specimen 02/11/2012 [facility] Expires [facility] Specimen Anatomical Collection Method Collection Time Receive d Time (Source) Location / / Volume Laterality Blood specimen 02/08/2012 1:52 PM 012 1:54 (specimen) CDT PM CDT Chucho Joshi MD LAB - BLOOD BANK TEST ORDER Performing Organization Address City/State/ZIP Code Phon e Number [id number] [place] [address] LABS EKG 12-lead, tracing only (02/08/2012 7:30 AM CDT) [facility] Method Time Signature Ventricular Rate 60 BPM RADIOLOGY RESULTS Atrial Rate 60 BPM RADIOLOGY RESULTS ME Interval 186 ms RADIOLOGY RESULTS QRS Duration 104 ms RADIOLOGY RESULTS QT 440 ms RADIOLOGY RESULTS QTc 440 ms RADIOLOGY RESULTS P [place] 36 degrees RADIOLOGY RESULTS R AXIS 0 degrees RADIOLOGY RESULTS T [place] 36 degrees RADIOLOGY RESULTS Interpretation Sinus rhythm [...] DEFINED documented in this encounter Care Teams Biomedical Engineering Technician Relationship Specialty Start Date End Date Toña Jones MD PCP - General Nephrology 11/25/11 01/01/14 Ingrid Santana, RN Registered Nurse Transplant 02/10/12 documented as of this encounter
--- OUTSIDE RECORDS SUMMARY | 2022-07-05 14:51 | XMS_ITS | Encounter Summary ---
:1950 Author Organization [place] Address [address] [place] [address] Care Team Providers Name Role Phone Toña Jones MD Primary Care Provider Ingrid Santana RN Unavailable Unavailable Encounter Details Date Type Department Care Team Description 02/08/2012 Results Only LABORATORY RESULTS Jeff Joshi MD [address] [place] [address] [place] [address] (Wo rk) Social History Tobacco [...] I Single Antigen (02/08/2012 7:07 AM CDT) [facility] gist Method Time Signature SA1 [...] Phon e Number [facility] Immunology/Histocompatabil [place], [place] [address] [facility] [address], Room 3-580 HISTOTRAC documented in this encounter Visit Diagnoses Not on filedocumented in this encounter Care Teams Surface Supervisor Relationship Specialty Start Date End Date Toña oJnes MD PCP - General Nephrology 11/25/11 01/01/14 Ingrid Santana, RN Registered Nurse Transplant 02/10/12 documented as of this encounter
--- OUTSIDE RECORDS SUMMARY | 2022-07-05 14:51 | XMS_ITS | Encounter Summary ---
:1950 Author Organization [place] Address [facility] [place] [address] Care Team Providers Name Role Phone Toña Jones MD Primary Care Provider Ingrid Santana RN Unavailable Unavailable Reason for Visit Reason Comments Social Work Services Encounter Details Date Type Department Care Team Description 02/10/2012 Office Visit The Transplant Akanksha Stacy Organ transplant 2nd Floor, Clinic 2A SHALOM Zacarias candidate (Primary [facility] Dx) [address] [phone] Social History Tobacco Use Types Packs/Day Years [...] old Duration of Interview: 40 min Process: [id number] Interview (counseling < 50%) Present at Appointment: Latrell, his brother Kiran and Latrell Zamora, Transplant Financial Health Type TechnicianCardiothoracic Anesthesia Technician Worker: CECY Ortiz, CLIMATE CHANGE ANALYST Date: February 10, 2012 Type of transplant: Kidney Donor type: Latrell indicated that he does not know of any potential donors at this time. [place] Prior Transplants: No Status of Transplant: Current Living Situation Location: [facility] [address] [place] [address] [facility] [phone] With Whom: Alone Family/ Social Support: Kiran lives in [place], [place]. Available, helpful Committed relationship: Latrell indicated [...] Income Savings Insurance Latrell has BC/BS through [employer] until 07/22/13. He has also applied for [...] that assist with fund raising. Discussed asking sheltered workshop worker for assistance with cobra premiums and [...] No Adequate Finances Yes Signature: CECY Ortiz, [facility] Title: Clinical Wheel Filler documented in this encounter Plan of Treatment Not on filedocumented as of this encounter Visit Diagnoses Diagnosis Organ transplant candidate - Primary Awaiting organ transplant status documented in this encounter Care Teams Photoengraving Etcher Relationship Specialty Start Date End Date Toña Jones MD PCP - General Nephrology 11/25/11 01/01/14 Ingrid Santana, RN Registered Nurse Transplant 02/10/12 documented as of this encounter
--- OUTSIDE RECORDS SUMMARY | 2022-07-05 14:51 | XMS_ITS | Encounter Summary ---
:1950 Author Organization [place] Address [address] [facility] [place] [address] Care Team Providers Name Role Phone Toña Jones MD Primary Care Provider Ingrid Santana RN Unavailable Unavailable Reason for Visit Reason Comments Transplant Evaluation kidney Encounter Details Date Type Department Care Team Description 02/10/2012 Office Visit Nephrology Darian Joshi MD [address] [facility] [address] [place], [place] [id number] Pre-transplant 2nd Floor, Clinic 2A Joseph Quintana MD 717 [facility] [address] [facility] [address] [place], [place] [address] evaluation for Sanders Mimaalyssa chronic kidney Building disease (Primary Dx) [address] [place] [phone] Social History Tobacco Use Types Packs/Day Years [...] Dialysis Type: [facility] HD; and Dialysis unit: [facility] Primary Clinical Secretary: Dr. 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 Yes Reported, Patient B mbpuuec-V-qgbtv acid (NEPHROCAPS) 1 MG capsule Take 1 [...] NEG Ketones Urine Negative NEG (mg/dL) Specific [place] Urine 1.010 1.003 - 1.035 Blood Urine [...] Report Value: Patient Name: ELINOR GUTHRIE MR#: [id number] Specimen #: [id number] Collected: 02/08/2012 07:07 Received: 02/08/2012 09:00 Reported: 02/11/2012 14:03 Ordering Phy(s): DARIAN JOSHI TEST(S) REQUESTED: A: Factor 5 Leiden and Factor 2 by PCR B: DNA Isolation, High purity extraction SPECIMEN DESCRIPTION: Blood METHODOLOGY: The regions of genomic DNA containing the [id number] Factor 5 gene mutation (Factor V Leiden) and the Factor 2(Prothrombin [id number]) gene mutation were simultaneously amplified using the polymerase chain reaction. The amplified products were digested with restriction endonuclease TaqI and products were analyzed by gel electrophoresis. RESULTS: FACTOR 5-LEIDEN RESULTS: Mutation analyzed: 1691G>A Factor 5 Mutation Interpretation: ABSENT Factor 5 Mutation genotype: G/G FACTOR 2/PROTHROMBIN RESULTS: Mutation analyzed: 28012P>A Factor 2 Mutation Interpretation: ABSENT Factor 2 Mutation genotype: G/G INTERPRETATION: The patient is negative for the Factor 5 mutation and negative for the Factor 2 mutation. This test was developed and its performance determined by the [facility]. It has [...] Liliya Stone MD TESTING LAB LOCATION: [address] [address] COLLECTION SITE: Client: [facility] Location: [facility] () HLA LUKASZ CLASS I [...] of an antiphospholipid syndrome, recommend anticardiolipin and mfve-9-zcojsjtquijq (IgG and IgM) antibody tests. Dee Duenas M.D. [phone] 02-09-2012. APTT'S: Seconds Reagent = Stago LS [...] Range Ventricular Rate 60 Atrial Rate 60 GA Interval 186 QRS Duration 104 QT 440 QTc 440 P Anthony 36 R AXIS 0 T Anthony 36 Interpretation ECG Sinus rhythm Interpretation ECG [...] Function Test Value: Name: ELINOR GUTHRIE ID: [id number] Doctor: DONYA THOMAS Height: 72.00 in Age: [...] INTERPRETATION: The FVC, FEV1, FEV1/FVC ratio and ILY31-66% are within normal limits. The inspiratory flow [...] n documented in this encounter Care Teams Engraver Block Relationship Specialty Start Date End Date Toña Jones MD PCP - General Nephrology 11/25/11 01/01/14 Ingrid Santana, RN Registered Nurse Transplant 02/10/12 documented as of this encounter
--- OUTSIDE RECORDS SUMMARY | 2022-07-05 14:51 | XMS_ITS | Encounter Summary ---
:1950 Author Organization [place] Address [address] [place] [address] Care Team Providers Name Role Phone Toña Jones MD Primary Care Provider Ingrid Santana RN Unavailable Unavailable Encounter Details Date Type Department Care Team Description 04/13/2012 Results Only LABORATORY RESULTS Mingo Dangelo MD [address] [facility] [address] [place] [address] (Wo rk) Social History Tobacco [...] HLA Lukasz Class II Single Antigen (04/13/2012) [facility] gist Method Time Signature SA2 Test [...] Phon e Number [facility] HLA LABORATORY Immunology/Histocompatabil [place], [place] [address] ity [facility] [address] Building, Room 3-580 HISTOTRAC documented in this encounter Visit Diagnoses Not on filedocumented in this encounter Care Teams Piano Machine Operator Relationship Specialty Start Date End Date Toña Jones MD PCP - General Nephrology 11/25/11 01/01/14 Ingrid Santana, RN Registered Nurse Transplant 02/10/12 documented as of this encounter
--- OUTSIDE RECORDS SUMMARY | 2022-07-05 14:51 | XMS_ITS | Encounter Summary ---
:1950 Author Organization [place] Address [facility] [place] [address] Care Team Providers Name Role Phone Toña [...] Associated Diagnosis Comme nts PATHOLOGY RESULT - [facility] 03/17/2012 8:24 AM CDT SCAN - ARCHIVE documented in this encounter Results PATHOLOGY RESULT - [facility] SCAN - ARCHIVE (03/17/2012 8:24 AM CDT) Specimen (Source) Anatomical Location Collection Method / Collectio n Time Received Time / Laterality Volume Narrative This result has an attachment that is no t available. Gich Provider LAB - COP[facility] SPECIAL DIAG OR DERABLES documented in this encounter Visit Diagnoses Not on filedocumented in this encounter Care Teams Medical Accountant Relationship Specialty Start Date End Date Toña Jones MD PCP - General Nephrology 11/25/11 01/01/14 Momo Forbes PCP - General Family Practice 01/02/14 [facility] [address] [place] [address] Ingrid Santana, RN Registered Nurse Transplant 02/10/12 documented as of this encounter
--- OUTSIDE RECORDS SUMMARY | 2022-07-05 14:51 | XMS_ITS | Encounter Summary ---
:1950 Author Organization [place] Address [address] [place] [address] Care Team Providers Name Role Phone Toña Jones MD Primary Care Provider Ignrid Santana RN Unavailable Unavailable Encounter Details Date Type Department Care Team Description 07/03/2012 Results Only LABORATORY RESULTS Barbara Bradley MD [address] [place], [place] [address] Social History Tobacco Use [...] HLA Lukasz Class I Single Antigen (07/03/2012) [facility] gist Method Time Signature SA1 Test [...] / Volume Laterality 07/03/2012 07/05/2012 1:57 PM SIGNS SALES REPRESENTATIVE Barbara Bradley MD LAB - IMMUNOLOGY ORDERABLES Performing Organization Address City/State/ZIP Code Phon e Number [facility] LABORAT[facility] Immunology/Histocompatabil [place], [place] [address] ity [facility] [address] [facility] [address] Building, Room 3-580 HISTOTRAC documented in this encounter Visit Diagnoses Not on filedocumented in this encounter Care Teams Heading Saw Operator Relationship Specialty Start Date End Date Toña Jones MD PCP - General Nephrology 11/25/11 01/01/14 Ingrid Santana, RN Registered Nurse Transplant 02/10/12 documented as of this encounter
--- OUTSIDE RECORDS SUMMARY | 2022-07-05 14:51 | XMS_ITS | Encounter Summary ---
:1950 Author Organization [place] Address [address] [facility] [place] [address] Care Team Providers Name Role Phone Toña Jones MD Primary Care Provider Ingrid Santana RN Unavailable Unavailable Reason for Visit Reason Comments Heart Problem Consult prior to kidney proctor splant, needs EKG please. Encounter Details Date Type Department Care Team Description 02/10/2012 Office Visit Justice Barbara Bradley Unspecified es sential hypertension; [facility] [place] Pre-operative clearance Heart [address] [place] [address] Building [phone] 4th Floor, Clinic 4B (Work) [address] [address] Social History Tobacco Use Types [...] Stay Well and Call Maribel Nicole RN [phone] with any questions or concerns. You are scheduled for an Adenosine Stress Test 02/15/2012: Please check into the [facility] Waiting Room at 12:15pm for this test. [...] and you need to reschedule, please call [phone]. January 2012Tuesday 1 2 3 4 5 6 7 8 9 10 11 12 13 14 15 16 17 18 19 [facility] NEW 6:30 AM (30 min.) Evaluation, [facility] The Transplant [facility] FULL PULMONARY FUNCTION 8:00 AM (60 min.) 2, [facility] Pfl [place] Pulmonary Function Laboratory RADIOLOGY 8:05 AM (10 min.) Uicxr2 [facility] Diagnostic Imaging [facility] PREP KIDNEY/PANCREAS TX 9:00 AM (120 min.) Angela Lopez RN [facility], Patient Learning Center [facility] TRANSPLANT CLASS KIDNEY 9:00 AM (90 min.) Class, [facility] Transplant The Transplant Center [facility] COSMETICIAN 11:00 AM (30 min.) Coordinator, [facility] Care [facility] Transplant [facility] PRE-TX KIDNEY EVAL 11:00 AM (30 min.) Jesus Thomas MD Transplant Surgery LAB 11:30 AM (15 min.) Pwb, Op Lab [facility], Lab RADIOLOGY 1:30 PM (55 min.) Uecvc1 [facility], Echocardiography 20 21 [facility] RETURN 7:00 AM (15 min.) Evaluation, [facility] The Transplant Center RADIOLOGY 7:00 AM (60 min.) Uicusr2 [facility] Diagnostic Imaging CONSULT HOD 8:00 AM (60 min.) Martina Mcneill RD [facility], [place], Nutrition Services [facility] TX SOCIAL WORK 9:00 AM (60 min.) 2, [facility] Tx Consult Room The Transplant Center [facility] PRE-TX KIDNEY EVAL 10:00 AM (60 min.) Joseph Quintana MD Nephrology [facility] PANCREAS-KIDNEY TX W/U 11:30 AM (30 min.) Barbara Bradley MD [facility] Physicians Heart 22 23 24 25 26 RADIOLOGY 12:30 PM (15 min.) Uninj [facility], Nuclear Medicine RADIOLOGY 1:15 PM (20 min.) Unr1 [facility], Nuclear Medicine RADIOLOGY 1:40 PM (30 min.) [facility] RADIOLOGY 3:10 PM (20 min.) [address], Nuclear Medicine 27 28 29 20 [...] On HD since Aug 2011. No past CO, stress tests or coronary angiogorams. No chest [...] 1 tablet by mouth daily. ??? 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 Perez MD manager relocation. Divisions of Cardiology [place], [place] CC Patient Care Team: Toña Jones MD as PCP - General (Nephrology) Ingrid Santana, RN as Registered Nurse (Transplant) JESUS THOMAS documented in this encounter Plan of Treatment Not on filedocumented as of this encounter Visit Diagnoses Diagnosis Unspecified essential hypertension Pre-operative clearance Preoperative examination, unspecified documented in this encounter Care Teams Scrub Technician Relationship Specialty Start Date End Date Toña Jones MD PCP - General Nephrology 11/25/11 01/01/14 Ingrid Santana, RN Registered Nurse Transplant 02/10/12 documented as of this encounter
--- OUTSIDE RECORDS SUMMARY | 2022-07-05 14:51 | XMS_ITS | Encounter Summary ---
:1950 Author Organization [place] Address [address] [place] [address] Care Team Providers Name Role Phone Toña Jones MD Primary Care Provider Encounter Details Date Type Department Care Team Description 02/08/2012 Hospital Encounter [facility] Jesus Cardenas MD Patient Learning Bobby Angela Leon, BOGDAN [address] [facility] [address] [place] [id number] [address] [place] [address] Social History Tobacco Use Types Packs/Day Years [...] tablet by mouth 0 02/18/2014 daily. B bwpvuhw-W-flzyl acid Take 1 capsule by mouth 0 [...] on filedocumented in this encounter Care Teams Bradder Relationship Specialty Start Date End Date Toña Jones MD PCP - General Nephrology 11/25/11 01/01/14 documented as of this encounter
--- OUTSIDE RECORDS SUMMARY | 2022-07-05 14:51 | XMS_ITS | Encounter Summary ---
:1950 Author Organization [place] Address [address] [place] [address] Care Team Providers Name Role Phone Toña Jones MD Primary Care Provider Ingrid Santana RN Unavailable Unavailable Reason for Visit (Routine) - Closed Specialty Diagnoses / Procedures Referred By Contact Refer red To Contact Radiology Diagnoses NM MPI SCAN Procedure Notes: UNSPECIFIED ESSENTIAL HYPERTENSION,PREOPERATIVE EXAMINATION, UNSPECIFIED, [facility] Nuclear Medicine Procedures RADIOLOGY [address] [place] [address] Phone: Referral ID Status Reason Start Date Expiration Date Visits Requ ested Visits Authorized [id number] Closed 02/11/2012 02/10/2013 1 1 Encounter Details Date Type Department Care Team Description 02/15/2012 Hospital Encounter [facility] Barbara Bradley ESRD (end stage [facility] Imaging MD Monae renal disease) (H) [address] [facility] [address] [place] [address] Social History Tobacco Use [...] tablet by mouth 0 02/18/2014 daily. B pwyvxbu-I-fsguk acid Take 1 capsule by mouth 0 [...] disease documented in this encounter Care Teams Wet Mix Operator Relationship Specialty Start Date End Date Toña Jones MD PCP - General Nephrology 11/25/11 01/01/14 Ingrid Santana RN Registered Nurse Transplant 02/10/12 documented as of this encounter
--- OUTSIDE RECORDS SUMMARY | 2022-07-05 14:51 | XMS_ITS | Encounter Summary ---
:1950 Author Organization [place] Address [address] [facility] [place] [address] Care Team Providers Name Role Phone Toña [...] 2 (H) Tommy Wilburn (Primar y Dx) [address] [phone] Social History Tobacco Use Types Packs/Day Years [...] this time. Patient to follow up with log operations coordinator. documented in this encounter Plan of Treatment Not on filedocumented as of this encounter Visit Diagnoses Diagnosis DM (diabetes mellitus), type 2 (H) - Ana ashley Type II or unspecified type diabetes aung litus without mention of complication, not stated as uncontrolled documented in this encounter Care Teams Rubber Mixer Relationship Specialty Start Date End Date Toña Jones MD PCP - General Nephrology 11/25/11 01/01/14 Ingrid Santana RN Registered Nurse Transplant 02/10/12 documented as of this encounter
--- OUTSIDE RECORDS SUMMARY | 2022-07-05 14:51 | XMS_ITS | Encounter Summary ---
:1950 Author Organization [place] Address [address] [place] [address] Care Team Providers Name Role Phone Toña Jones MD Primary Care Provider Ingrid Santana RN Unavailable Unavailable Reason for Visit (Routine) - Closed Specialty Diagnoses / Procedures Referred By Contact Refer red To Contact Radiology Diagnoses NM MPI [place] Procedure Notes: UNSPECIFIED ESSENTIAL HYPERTENSION,PREOPERATIVE EXAMINATION, UNSPECIFIED, [facility] Nuclear Medicine Procedures RADIOLOGY [address] [place] [address] Phone: Referral ID Status Reason Start Date Expiration Date Visits Requ ested Visits Authorized [id number] Closed 02/11/2012 02/10/2013 1 1 Encounter Details Date Type Department Care Team Description 02/15/2012 Hospital Encounter [facility] Barbara Bradley Imaging MD Monae 500 [facility] [address] [place], [place] [address] [phone] Social History Tobacco Use Types Packs/Day Years [...] tablet by mouth 0 02/18/2014 daily. B tileqgy-B-uwkej acid Take 1 capsule by mouth 0 [...] on filedocumented in this encounter Care Teams Interlocking And Signal Mechanic Relationship Specialty Start Date End Date Toña Jones MD PCP - General Nephrology 11/25/11 01/01/14 Ingrid Santana RN Registered Nurse Transplant 02/10/12 documented as of this encounter
--- OUTSIDE RECORDS SUMMARY | 2022-07-05 14:51 | XMS_ITS | Encounter Summary ---
:1950 Author Organization [place] Address [address] [place] [address] Care Team Providers Name Role Phone Toña Jones MD Primary Care Provider Ingrid Santana RN Unavailable Unavailable Encounter Details Date Type Department Care Team Description 04/13/2012 Results Only LABORATORY RESULTS Mingo Dangelo MD [address] [facility] [address] [place] [address] (Wo rk) Social History Tobacco [...] HLA Lukasz Class I Single Antigen (04/13/2012) [facility] gist [...] e Number [facility] HLA LABORATORY Immunology/Histocompatabil [place], [place] [address] ity [facility] [address] Building, Room 3-580 HISTOTRAC documented in this encounter Visit Diagnoses Not on filedocumented in this encounter Care Teams Mechanic Welder Truck Driver Relationship Specialty Start Date End Date Toña Jones MD PCP - General Nephrology 11/25/11 01/01/14 Ingrid Santana, RN Registered Nurse Transplant 02/10/12 documented as of this encounter
--- OUTSIDE RECORDS SUMMARY | 2022-07-05 14:51 | XMS_ITS | Encounter Summary ---
:1950 Author Organization [place] Address [address] [place] [address] Care Team Providers Name Role Phone Toña Jones MD Primary Care Provider Ingrid Santana RN Unavailable Unavailable Encounter Details Date Type Department Care Team Description 02/08/2012 Results Only LABORATORY RESULTS Jeff Joshi MD [address] [facility] 353 [place] [address] (Wo rk) Social History Tobacco [...] Phon e Number [facility] HLA LABORATORY Immunology/Histocompatabil [place], [place] [address] ity [facility] [address] [facility] [address] Building, Room 3-580 HISTOTRAC documented in this encounter Visit Diagnoses Not on filedocumented in this encounter Care Teams Subway Train Driver Relationship Specialty Start Date End Date Toña Jones MD PCP - General Nephrology 11/25/11 01/01/14 Ingrid Santana, RN Registered Nurse Transplant 02/10/12 documented as of this encounter
--- OUTSIDE RECORDS SUMMARY | 2022-07-05 14:51 | XMS_ITS | Encounter Summary ---
:1950 Author Organization [place] Address [address] [place] [address] Care Team Providers Name Role Phone Toña Jones MD Primary Care Provider Ingrid Santana RN Unavailable Unavailable Encounter Details Date Type Department Care Team Description 02/10/2012 Hospital Encounter [facility] Jesus Cardenas MD Nutrition Services Martina Harley, RD 420 [facility] 84 [place] [address] [address] [facility] Joseph Quintana MD 717 [facility] 353 [facility] [address] [place] [address] 84 [place] [address] Social History Tobacco Use Types Packs/Day Years [...] tablet by mouth 0 02/18/2014 daily. B qxqxabc-M-awgro acid Take 1 capsule by mouth 0 [...] Mcneill, RD - 02/10/2012 8:47 AM CDT [facility] Medical Nutrition Therapy Visit Type: [...] filedocumented in this encounter Care Teams Director Electrical Engineering Relationship Specialty Start Date End Date Toña Jones MD PCP - General Nephrology 11/25/11 01/01/14 Ingrid Santana RN Registered Nurse Transplant 02/10/12 documented as of this encounter
--- OUTSIDE RECORDS SUMMARY | 2022-07-05 14:51 | XMS_ITS | Encounter Summary ---
:1950 Author Organization [place] Address [address] [place] [address] Care Team Providers Name Role Phone Toña Jones MD Primary Care Provider Ingrid Santana RN Unavailable Unavailable Encounter Details Date Type Department Care Team Description 02/10/2012 Orders Only [facility] Anita Joshi MD Diabetes mellitus, type 2 (H); Clinic Imaging [address] [place] [address] End stage renal disease (H) [facility] [address] [place] [address] 1st Floor, Clinic [id number] [place] [address] [address] Social History Tobacco Use Types [...] disease documented in this encounter Care Teams Leather Staker Relationship Specialty Start Date End Date Toña Jones MD PCP - General Nephrology 11/25/11 01/01/14 Ingrid Santana RN Registered Nurse Transplant 02/10/12 documented as of this encounter
--- OUTSIDE RECORDS SUMMARY | 2022-07-05 14:51 | XMS_ITS | Encounter Summary ---
:1950 Author Organization [place] Address [address] [place] [address] Care Team Providers Name Role Phone Toña Jones MD Primary Care Provider Ingrid Santana RN Unavailable Unavailable Encounter Details Date Type Department Care Team Description 07/03/2012 Results Only LABORATORY RESULTS Barbara Bradley MD [address] [place], [place] [address] Social History Tobacco [...] / Volume Laterality 07/03/2012 07/05/2012 1:57 PM SOURCING SPECIALIST [place] Suseekar Bradley MD LAB - IMMUNOLOGY ORDERABLES Performing Organization Address City/State/ZIP Code Phon e Number [facility] HLA LABORATORY Immunology/Histocompatabil [place], [place] [address] ity [facility] 500 [facility] [address] Building, Room 3-580 HISTOTRAC documented in this encounter Visit Diagnoses Not on filedocumented in this encounter Care Teams Acid Tank Liner Relationship Specialty Start Date End Date Toña Jones MD PCP - General Nephrology 11/25/11 01/01/14 Ingrid Santana, RN Registered Nurse Transplant 02/10/12 documented as of this encounter
--- OUTSIDE RECORDS SUMMARY | 2022-07-05 14:51 | XMS_ITS | Encounter Summary ---
:1950 Author Organization [place] Address [address] [place] [address] Care Team Providers Name Role Phone Toña Jones MD Primary Care Provider Ingrid Santana RN Unavailable Unavailable Encounter Details Date Type Department Care Team Description 02/08/2012 Results Only LABORATORY RESULTS Jeff Joshi MD [address] [facility] 353 [place] [address] (Wo rk) Social History [...] e Number [facility] LABORATORY Immunology/Histocompatabil [place], [place] [address] ity [facility] [address] Building, Room 3-580 HISTOTRAC documented in this encounter Visit Diagnoses Not on filedocumented in this encounter Care Teams Panel Sewer Relationship Specialty Start Date End Date Toña Jones MD PCP - General Nephrology 11/25/11 01/01/14 Ingrid Santana, RN Registered Nurse Transplant 02/10/12 documented as of this encounter
--- OUTSIDE RECORDS SUMMARY | 2022-07-05 14:51 | XMS_ITS | Encounter Summary ---
:1950 Author Organization [place] Address [address] [place] [address] Care Team Providers Name Role Phone Toña Jones MD Primary Care Provider Ingrid Santana RN Unavailable Unavailable Encounter Details Date Type Department Care Team Description 08/25/2012 Results Only LABORATORY RESULTS Barbara Bradley MD [address] [place], [place] [address] Social History Tobacco Use [...] AM Results f or this CROSSMATCH ALLO FRONT END JAVA DEVELOPER procedure ar e in the results section. documented in this encounter Results HLA Flow T/B Crossmatch Allo (08/25/2012 9:49 AM FRONT END JAVA DEVELOPER) [facility] Method Time Signature Crossmatch Donor:ABRAHAM HICKEY [...] Volume Laterality 08/25/2012 9:49 AM 3 9:06 FRONT END JAVA DEVELOPER AM FRONT END JAVA DEVELOPER Barbara Bradley MD LAB - IMMUNOLOGY ORDERABLES Performing Organization Address City/State/ZIP Code Phon e Number [facility] LABORATORY Immunology/Histocompatabil [place], [place] [address] roger [facility] [address] Building, Room 3-580 HISTOTRAC documented in this encounter Visit Diagnoses Not on filedocumented in this encounter Care Teams Living Supervisor Relationship Specialty Start Date End Date Toña Jones MD PCP - General Nephrology 11/25/11 01/01/14 Ingrid Santana RN Registered Nurse Transplant 02/10/12 documented as of this encounter
--- OUTSIDE RECORDS SUMMARY | 2022-07-05 14:51 | XMS_ITS | Encounter Summary ---
:1950 Author Organization [place] Address [address] [place] [address] Care Team Providers Name Role Phone Toña Jones MD Primary Care Provider Ingrid Santana RN Unavailable Unavailable Encounter Details Date Type Department Care Team Description 02/08/2012 Results Only LABORATORY RESULTS Jeff Joshi MD [address] [facility] [address] [place] [address] (Wo rk) Social History Tobacco [...] II Single Antigen (02/08/2012 7:07 AM CDT) [facility] gist Method Time Signature SA2 Test Single [...] e Number [facility] Immunology/Histocompatabil [place], [place] [address] [facility] [address], Room 3-580 HISTOTRAC documented in this encounter Visit Diagnoses Not on filedocumented in this encounter Care Teams Crisis Specialist Relationship Specialty Start Date End Date Toña Jones MD PCP - General Nephrology 11/25/11 01/01/14 Ingrid Santana, RN Registered Nurse Transplant 02/10/12 documented as of this encounter
--- OUTSIDE RECORDS SUMMARY | 2022-07-05 14:51 | XMS_ITS | Encounter Summary ---
:1950 Author Organization [place] Address [address] [place] [address] Care Team Providers Name Role Phone Toña Jones MD Primary Care Provider Ingrid Santana RN Unavailable Unavailable Encounter Details Date Type Department Care Team Description 02/15/2012 Hospital Encounter [facility] Barbara Bradley Unsp ecified essential hypertension; [facility] Imaging MD Monae Pre-operative clearance [address] [place] [id number] Social History Tobacco Use Types Packs/Day [...] tablet by mouth 0 02/18/2014 daily. B tjzmdjj-X-mhzci acid Take 1 capsule by mouth 0 [...] unspecified documented in this encounter Care Teams Sheet Metal Shop Helper Relationship Specialty Start Date End Date Toña Jones MD PCP - General Nephrology 11/25/11 01/01/14 Ingrid Santana, RN Registered Nurse Transplant 02/10/12 documented as of this encounter
--- OUTSIDE RECORDS SUMMARY | 2022-07-05 14:51 | XMS_ITS | Encounter Summary ---
:1950 Author Organization [place] Address [address] [place] [address] Care Team Providers Name Role Phone Toña Jones MD Primary Care Provider Ingrid Santana RN Unavailable Unavailable Reason for Visit (Routine) - Closed Specialty Diagnoses / Procedures Referred By Contact Refer red To Contact Cardiology Diagnoses NM STRESS [facility] Procedure Notes: UNSPECIFIED ESSENTIAL HYPERTENSION,PREOPERATIVE EXAMINATION, UNSPECIFIED, Zz [facility] Electrocard Procedures RADIOLOGY [address] [place] [address] Referral ID Status Reason Start Date Expiration Date Visits Requ ested Visits Authorized [id number] Closed 02/11/2012 02/10/2013 1 1 Encounter Details Date Type Department Care Team Description 02/15/2012 Hospital Encounter [facility] ELECTROCARD Barbara Bradley [address] [facility] [place] [address] [address] [place], [place] [address] Social History Tobacco Use [...] tablet by mouth 0 02/18/2014 daily. B grxopyt-J-ddyzl acid Take 1 capsule by mouth 0 [...] Test documented in this encounter Care Teams Train Braker Relationship Specialty Start Date End Date Toña Jones MD PCP - General Nephrology 11/25/11 01/01/14 Ingrid Santana, RN Registered Nurse Transplant 02/10/12 documented as of this encounter
--- OUTSIDE RECORDS SUMMARY | 2022-07-05 14:51 | XMS_ITS | Encounter Summary ---
:1950 Author Organization [place] Address [address] [place] [address] Care Team Providers Name Role Phone Toña Jones MD Primary Care Provider Ingrid Santana RN Unavailable Unavailable Encounter Details Date Type Department Care Team Description 07/03/2012 Results Only LABORATORY RESULTS Barbara Bradley MD [address] [place], [place] [address] Social History Tobacco Use [...] in this encounter Results Virtual Crossmatch (07/03/2012) [facility] Method Time Signature Crossmatch Donor:ABRAHAM HICKEY ? Crossmatch Date:07/24/2012 HISTOTRAC Result (Note) Serum Date ??Test ?Result ? Donor Specific Antibody ?Comments 07/03/2012 ??Class I/Virtxm1 ? DSA ?None ? 07/03/2012 ??Class II/Virtxm 1 ?DSA ?None ? Specimen (Source) Anatomical Collection Method Collection Time Re ceived Time Location / / Volume Laterality 07/03/2012 07/05/2012 1:57 PM DISPLAY TRIMMER Barbara Bradley MD LAB - IMMUNOLOGY ORDERABLES Performing Organization Address City/State/ZIP Code Phon e Number [facility] Immunology/Histocompatabil [place], [place] [address] [facility] [address], Room 3-580 HISTOTRAC documented in this encounter Visit Diagnoses Not on filedocumented in this encounter Care Teams Digital Pre Press Operator Relationship Specialty Start Date End Date Toña Jones MD PCP - General Nephrology 11/25/11 01/01/14 Ingrid Santana RN Registered Nurse Transplant 02/10/12 documented as of this encounter
--- OUTSIDE RECORDS SUMMARY | 2022-07-05 14:51 | XMS_ITS | Encounter Summary ---
:1950 Author Organization [place] Address [address] [place] [address]. [place] [address] Care Team Providers Name Role Phone Toña Jones MD Primary Care Provider Ingrid Santana RN Unavailable Unavailable Momo Forbes Primary Care Provider Encounter Details Date Type Department Care Team Description 02/18/2012 Abstract The Transplant [facility] r 2nd Floor, Clinic [address] [phone] Social History Tobacco Use [...] PCP - General Family Practice 01/02/[address] [address] Ingrid Santana, RN Registered Nurse Transplant 02/10/12 documented as of this encounter
--- OUTSIDE RECORDS SUMMARY | 2022-07-05 14:51 | XMS_ITS | Encounter Summary ---
:1950 Author Organization [place] Address Replaced by [facility] [place] [address] Care Team Providers Name Role Phone Toña Jones MD Primary Care Provider Ingrid Santana RN Unavailable Unavailable Momo oFrbes [...] - HIM SCAN - 09/25/2012 8:26 AM MANAGED CARE COORDINATOR ARCHIVE documented in this encounter Results LAB RESULT - HIM SCAN - ARCHIVE (09/25/2012 8:26 AM MANAGED CARE COORDINATOR) Specimen (Source) Anatomical Location Collection Method / Collectio n Time Received Time / Laterality Volume Narrative This result has an attachment that is no t available. Marcela Cordero MD LAB - BLOOD ORDERABLES documented in this encounter Visit Diagnoses Not on filedocumented in this encounter Care Teams Home Theater Installer Relationship Specialty Start Date End Date Toña Jones MD PCP - General Nephrology 11/25/11 01/01/14 Momo Forbes PCP - General Family Practice 01/02/[address] [place] [address] Ingrid Santana, RN Registered Nurse Transplant 02/10/12 documented as of this encounter
--- OUTSIDE RECORDS SUMMARY | 2022-07-05 14:52 | XMS_ITS | Encounter Summary ---
:1950 Author Organization [place] Address [address] [place] [address]. [place] [address] Care Team Providers Name Role Phone Toña Jones MD Primary Care Provider Ingrid Santana RN Unavailable Unavailable Momo Forbes Primary Care Provider Encounter Details Date Type Department Care Team Description 06/05/2008 Historic Results [facility] Provider, MD Marcela Social History Tobacco Use [...] filedocumented in this encounter Care Teams Inside Sales Advisor Relationship Specialty Start Date End Date Toña Jones MD PCP - General Nephrology 11/25/11 01/01/14 Momo Forbes PCP - General Family Practice 01/02/[address] [address] Siers, Ingrid A, RN Registered Nurse Transplant 02/10/12 documented as of this encounter
--- OUTSIDE RECORDS SUMMARY | 2022-07-05 14:52 | XMS_ITS | Encounter Summary ---
:1950 Author Organization [place] Address [address] [place] [address]. [place] [address] Care Team Providers Name Role Phone Toña Jones MD Primary Care Provider Ingrid Santana RN Unavailable Unavailable Momo Forbes Primary Care Provider Encounter Details Date Type Department Care Team Description 01/14/2006 Historic Results [facility] Provider, MD Marcela Social History Tobacco Use [...] filedocumented in this encounter Care Teams Accounting Advisory Services Manager Relationship Specialty Start Date End Date Toña Jones MD PCP - General Nephrology 11/25/11 01/01/14 Momo Forbes PCP - General Family Practice 01/02/[address] [address] Siers, Ingrid A, RN Registered Nurse Transplant 02/10/12 documented as of this encounter
--- OUTSIDE RECORDS SUMMARY | 2022-07-05 14:52 | XMS_ITS | Encounter Summary ---
:1950 Author Organization [place] Address [address] [facility] [place] [address] Care Team Providers Name Role Phone Unavailable Primary Care Provider Unavailable Encounter Details Date Type Department Care Team Description 07/30/2009 Results [facility] Results [address] [place] [address] [place] [id number] Social History Tobacco Use Types Packs/Day Years Used Date Smoking Tobacco: Never Assessed Sex Assigned at Date Recorded Not on file documented as of this encounter Plan of Treatment Not on filedocumented as of this encounter Procedures Procedure Name Priority Date/Time Associated Diagnosis [facility] RT DUPLEX Routine 07/30/2009 12:32 PM Results for this EXTREM VENOUS,UNI CONE PICKER procedure are in OR LTD the results section. documented in this encounter Results RT DUPLEX EXTREM VENOUS,UNI OR LTD (07/30/2009 12:32 PM CONE PICKER) Anatomical Region Laterality Modality Other Specimen (Source) Anatomical Collection Method Collection Time Re ceived Time Location / / Volume Laterality 07/30/2009 12:32 PM CONE PICKER Impressions 07/30/2009 4:21 PM CONE PICKER ULTRASOUND VENOUS LOWER EXTREMITY UNILAT ERAL RIGHT [...]
--- OUTSIDE RECORDS SUMMARY | 2022-07-05 14:52 | XMS_ITS | Encounter Summary ---
:1950 Author Organization [place] Address [address] [facility] [place] [address] Care Team Providers Name Role Phone Toña [...] filedocumented in this encounter Care Teams Lamp Shade Joiner Relationship Specialty Start Date End Date Toña Jones MD PCP - General Nephrology 11/25/11 01/01/14 Momo Forbes PCP - General Family Practice 01/02/14 [facility] [address] [place] [address] Ingrid Santana, RN Registered Nurse Transplant 02/10/12 documented as of this encounter
--- OUTSIDE RECORDS SUMMARY | 2022-07-05 14:52 | XMS_ITS | Encounter Summary ---
:1950 Author Organization [place] Address [address] [facility] [place] [address] Care Team Providers Name Role Phone Toña [...] filedocumented in this encounter Care Teams Tool Straightener Relationship Specialty Start Date End Date Toña Jones MD PCP - General Nephrology 11/25/11 01/01/14 Momo Forbes PCP - General Family Practice 01/02/14 [facility] [address] [place] [address] Ingrid Santana, RN Registered Nurse Transplant 02/10/12 documented as of this encounter
--- OUTSIDE RECORDS SUMMARY | 2022-07-05 14:52 | XMS_ITS | Encounter Summary ---
:1950 Author Organization [place] Address [facility] [place] [address] Care Team Providers Name Role Phone Toña Jones MD Primary Care Provider Ingrid Santana RN Unavailable Unavailable Momo Forbes Primary Care Provider Encounter Details Date Type Department Care Team Description 01/28/1998 [facility] Cesar Tejeda [facility] [address] [place], [place] [address] (Wo rk) Social History Tobacco Use Types Packs/Day Years Used Date Smoking Tobacco: Never Assessed Sex Assigned at Date Recorded Not on file documented as of this encounter Plan of Treatment Not on filedocumented as of this encounter Visit Diagnoses Not on filedocumented in this encounter Care Teams Legal Practice Manager Relationship Specialty Start Date End Date Toña Jones MD PCP - General Nephrology 11/25/11 01/01/14 Momo Forbes PCP - General Family Practice 01/02/[address] [address] Ingrid Santana, RN Registered Nurse Transplant 02/10/12 documented as of this encounter
--- OUTSIDE RECORDS SUMMARY | 2022-07-05 14:52 | XMS_ITS | Encounter Summary ---
:1950 Author Organization [place] Address [address] [place] [address]. [place] [address] Care Team Providers Name Role Phone Toña Jones MD Primary Care Provider Ingrid Santana RN Unavailable Unavailable Momo Forbes Primary Care Provider Encounter Details Date Type Department Care Team Description 05/25/2010 Historic Results [facility] Provider, MD Marcela Social [...] on filedocumented in this encounter Care Teams Area Field Worker Relationship Specialty Start Date End Date Toña Jones MD PCP - General Nephrology 11/25/11 01/01/14 Momo Forbes PCP - General Family Practice 01/02/[address] [address] Siers, Ingrid A, RN Registered Nurse Transplant 02/10/12 documented as of this encounter
--- OUTSIDE RECORDS SUMMARY | 2022-07-05 14:52 | XMS_ITS | Encounter Summary ---
:1950 Author Organization [place] Address [address] [facility] [place] [address] Care Team Providers Name Role Phone Toña [...] on filedocumented in this encounter Care Teams Orderly Relationship Specialty Start Date End Date Toña Jones MD PCP - General Nephrology 11/25/11 01/01/14 Momo Forbes PCP - General Family Practice 01/02/14 [facility] [address] [place] [address] Ingrid Santana, RN Registered Nurse Transplant 02/10/12 documented as of this encounter
--- OUTSIDE RECORDS SUMMARY | 2022-07-05 14:52 | XMS_ITS | Encounter Summary ---
:1950 Author Organization [place] Address [address] [facility] [place] [address] Care Team Providers Name Role Phone Toña Jones MD Primary Care Provider Ingrid Santana RN Unavailable Unavailable Momo Forbes Primary Care Provider Encounter Details Date Type Department Care Team Description 08/30/2011 Historic Results [facility] Provider, MD Marcela Social History Tobacco Use Types Packs/Day Years Used Date Smoking Tobacco: Never Assessed Sex Assigned at Date Recorded Not on file documented as of this encounter Plan of Treatment Not on filedocumented as of this encounter Procedures Procedure Name Priority Date/Time Associated Diagnosis Comme nts EKG CARDIAC - HIM SCAN 08/30/2011 8:28 AM MANAGER MEMBERSHIP - ARCHIVE ECHO CARDIAC - HIM SCAN 08/30/2011 8:27 AM MANAGER MEMBERSHIP - ARCHIVE documented in this encounter Results EKG CARDIAC - HIM SCAN - ARCHIVE (08/30/2011 8:28 AM MANAGER MEMBERSHIP) Specimen (Source) Anatomical Location Collection Method / Collectio n Time Received Time / Laterality Volume Narrative This result has an attachment that is no t available. Gich Provider ECG ORDERABLES ECHO CARDIAC - HIM SCAN - ARCHIVE (08/30/2011 8:27 AM MANAGER MEMBERSHIP) Anatomical Region Laterality Modality Echocardiography Specimen (Source) Anatomical Location Collection Method / Collectio n Time Received Time / Laterality Volume Narrative This result has an attachment that is no t available. Marcela Provider CV ECHO ORDERABLES documented in this encounter Visit Diagnoses Not on filedocumented in this encounter Care Teams Uniform Room Attendant Relationship Specialty Start Date End Date Toña Jones MD PCP - General Nephrology 11/25/11 01/01/14 Momo Forbes PCP - General Family Practice 01/02/14 [facility] [address] [place] [address] Ingrid Santana, RN Registered Nurse Transplant 02/10/12 documented as of this encounter
--- OUTSIDE RECORDS SUMMARY | 2022-07-05 14:52 | XMS_ITS | Encounter Summary ---
:1950 Author Organization [place] Address [address] [place] [address]. [place] [address] Care Team Providers Name Role Phone Toña Jones MD Primary Care Provider Ingrid Santana RN Unavailable Unavailable Momo Forbes Primary Care Provider Encounter Details Date Type Department Care Team Description 05/20/2010 Historic Results [facility] Provider, MD [...] in this encounter Care Teams Sales And Operations Trainee Relationship Specialty Start Date End Date Toña Jones MD PCP - General Nephrology 11/25/11 01/01/14 Momo Forbes PCP - General Family Practice 01/02/[address] [address] Siers, Ingrid A, RN Registered Nurse Transplant 02/10/12 documented as of this encounter
--- OUTSIDE RECORDS SUMMARY | 2022-07-05 14:52 | XMS_ITS | Encounter Summary ---
:1950 Author Organization [place] Address [address] [place] [address] Care Team Providers Name Role Phone Toña Jones MD Primary Care Provider Reason for Visit Reason Onset Date Comments Patient Reminder 02/01/2012 Encounter Details Date Type Department Care Team Description 02/01/2012 PRE VISIT Nephrology Joseph Quintana, Patient Reminder 2nd Floor, Clinic 2A MD Tommy Wilburn [address] [place] [address] [address] [place], [place] [address] [place] [address] (Wo rk) [phone] [phone] Social History Tobacco Use Types Packs/Day Years [...] filedocumented in this encounter Care Teams Core Rescuer Relationship Specialty Start Date End Date Toña Jones MD PCP - General Nephrology 11/25/11 01/01/14 documented as of this encounter
--- OUTSIDE RECORDS SUMMARY | 2022-07-05 14:52 | XMS_ITS | Encounter Summary ---
:1950 Author Organization [place] Address [address] 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 [...] Performing Organization Address City/[facility] Phon e Number [address] LABS Antibody titer red cell (02/08/2012 7:26 AM CDT) [facility] Method [place] Signature Antibody Titer Anti B [facility] titer IgM: [place] 4 Ig [place] [facility] Specimen Anatomical Collection Method Collection Time Receive d Time (Source) Location / / Volume Laterality Blood specimen 02/08/2012 7:26 AM 012 7:31 (specimen) CDT AM CDT Darian Joshi MD LAB - BLOOD BANK TEST ORDER Performing Organization Address [facility] Phon e Number [address] LABS Prostate spec antigen screen (02/08/2012 7:25 AM CDT) athologist Signature PSA 0.44 0 - 4 ug/L [facility] Comment: PSA results are about [...] Code Phon e Number [facility] [address] LABS Hemoglobin A1c (02/08/2012 7:25 AM CDT) athologist Signature Hemoglobin A1C 5.3 4.3 - 6.0 [facility] LABS Specimen Anatomical Collection Method Collection Time Receive d Time (Source) Location / / Volume Laterality Blood specimen 02/08/2012 7:25 AM 012 7:30 (specimen) CDT AM CDT Darian Joshi MD LAB - BLOOD ORDERABLES Performing Organization Address City/State/ZIP Code Phon e Number [facility] [address] LABS C-peptide (02/08/2012 7:25 AM CDT) athologist Signature C Peptide 5.3 0.9 - 6.9 [facility] ng/mL [place] [facility] Specimen Anatomical Collection Method Collection Time Receive d Time (Source) Location / / Volume Laterality Blood specimen 02/08/2012 7:25 AM 012 7:30 (specimen) CDT AM CDT Darian Joshi MD LAB - BLOOD ORDERABLES Performing Organization Address City/[facility]/ZIP Code Phon e Number [address] LABS Cardiolipin antibody IgG and IgM (02/08/2012 7:25 AM CDT) [facility] gist Method Time Signature Cardiolipin IgG <15.0 0 - 15.0 [facility] Shaye Interpretation: ??Negative GPL UN[facility] VERSITY CAMPUS [...] Code Phon e Number [facility] 500 [place] [address] [place] [facility] LABS (ABNORMAL) Comprehensive metabolic panel (02/08/2012 7:25 AM CDT) [facility] gist Method Time Signature Sodium 143 133 - 144 [facility] mmol/L [facility] Potassium 4.4 3.4 - 5.3 [facility] mmol/L [facility] Chloride 106 94 - 109 [facility] mmol/L [facility] Carbon Dioxide 24 20 - 32 [facility] mmol/L [facility] Anion Gap 13 6 - 17 [facility] mmol/L [facility] Glucose 126 (H) 60 - 99 [facility] mg/dL [facility] Urea Nitrogen 32 (H) 7 - 30 [facility] mg/dL [facility] Creatinine 5.46 (H) 0.66 - [facility] 1.25 UNIVERSITY mg/dL CAMPUS LABS GFR Estimate 11 (L) >60 [facility] mL/min/1. [address] LABS GFR Estimate If 13 (L) >60 [facility] Black mL/min/1. [address] LABS Calcium 8.5 8.5 - [facility] 10.4 UNIVERSITY mg/dL CAMPUS LABS Bilirubin Total 0.8 0.2 - 1.3 [facility] mg/dL [facility] Albumin 3.8 3.3 - 4.9 [facility] g/dL [facility] Protein Total 6.8 6.8 - 8.8 [facility] g/dL [facility] Alkaline 92 40 - 150 [facility] Phosphatase U/L [facility] ALT 13 0 - 70 [facility] U/L [facility] AST 18 0 - 45 [facility] U/L [facility] Specimen Anatomical Collection Method Collection Time Receive d Time (Source) Location / / Volume Laterality Blood specimen 02/08/2012 7:25 AM 012 7:30 (specimen) CDT AM CDT Darian Joshi MD LAB - BLOOD ORDERABLES Performing Organization Address City/[facility]/ZIP Code Phon e Number [facility] [address] [place] [address] [facility] LABS Lipid Profile (02/08/2012 7:25 AM CDT) P athologist Signature Cholesterol 134 0 - 200 [facility] mg/dL CAMP[facility] LABS Comment: LDL Cholesterol is the primary guide to therapy. The NCEP recommends further evaluation of: patients with cholesterol greater than 200 mg/dL if additional risk facto rs are present, cholesterol greater than 240 mg/dL, triglycerides greater than 1 50 mg/dL, or HDL less than 40 mg/dL. Triglycerides 74 0 - 150 mg/dL [facility] LABS HDL Cholesterol 42 40 - 110 mg/dL [facility] LAB[facility] LDL Cholesterol Calculated 77 0 - 129 mg/dL [facility] Comment: LDL Cholesterol is the primary guide to therapy: LDL-cholesterol goal in high risk patients is <100 mg/dL and in very high risk patients is <70 mg/dL. VLDL-Cholesterol 15 0 - 30 mg/dL [facility] LABS Cholesterol/HDL Ratio 3.2 0.0 - 5.0 [facility] Specimen Anatomical Collection Method Collection Time Receive d Time (Source) Location / / Volume Laterality Blood specimen 02/08/2012 7:25 AM 012 7:30 (specimen) CDT AM CDT Darian Joshi MD LAB - BLOOD ORDERABLES Performing Organization Address City/[facility]/ZIP Code Phon e Number [facility] [address] [place] [address] [facility] LABS ABO/Rh type and screen (02/08/2012 7:25 AM CDT) Patholo gist Method Time Signature ABO A [facility] RH(D) Pos [facility] Antibody Neg [facility] Screen [facility] Specimen 02/11/2012 [facility] Expires [facility] Specimen Anatomical Collection Method Collection Time Receive d Time (Source) Location / / Volume Laterality Blood specimen 02/08/2012 7:25 AM 012 7:30 (specimen) CDT AM CDT Darian Joshi MD LAB - BLOOD BANK TEST ORDER Performing Organization Address City/State/ZIP Code Phon e Number [facility] [address] [place] [address] [facility]S Varicella zoster antibody IgG (02/08/2012 7:25 AM CDT) Patholo gist Method Time Signature Varicella 1023.00 [facility] Zoster IgG [place] Immune Status CAMPUS LABS Ratio Vari Zoster Positive, [facility] IgG Interp suggests [place] prev. CAMPUS LABS exposure and probable immunity Specimen Anatomical Collection Method Collection Time Receive d Time (Source) Location / / Volume Laterality Blood specimen 02/08/2012 7:25 AM 012 7:30 (specimen) CDT AM CDT Darian Joshi MD LAB - BLOOD ORDERABLES Performing Organization Address City/State/ZIP Code Phon e Number [facility] 500 [place], [place] [id number] [place] [address] LABS Anti treponema EIA (02/08/2012 7:25 AM CDT) Analysis Performed At Patho logist Time Signature Treponema Negative NEG [facility] Antibody [place] [facility] Specimen Anatomical Collection Method Collection Time Receive d Time (Source) Location / / Volume Laterality Blood specimen 02/08/2012 7:25 AM 012 7:30 (specimen) CDT AM CDT Darian Joshi MD LAB - BLOOD ORDERABLES Performing Organization Address City/State/ZIP Code Phon e Number [facility] 500 [place], [place] [phone] [place] [address] LABS HIV 1 and 2 Antibody (02/08/2012 7:25 AM CDT) Analysis Performed At Patho logist Time Signature HIV 1&2 Negative NEG [facility] Antibody [facility] Specimen Anatomical Collection Method Collection Time Receive d Time (Source) Location / / Volume Laterality Blood specimen 02/08/2012 7:25 AM 012 7:30 (specimen) CDT AM CDT Darian Joshi MD LAB - BLOOD ORDERABLES Performing Organization Address City/State/ZIP Code Phon e Number [facility] 500 [place], [place] [phone] [place] [address] LABS Hepatitis C antibody (02/08/2012 7:25 AM CDT) Analysis Performed At Patho logist Time Signature Hepatitis C Negative NEG [facility] Antibody [facility] Specimen Anatomical Collection Method Collection Time Receive d Time (Source) Location / / Volume Laterality Blood specimen 02/08/2012 7:25 AM 012 7:30 (specimen) CDT AM CDT Darian Joshi MD LAB - BLOOD ORDERABLES Performing Organization Address City/[facility]/ZIP Code Phon e Number [address] LABS Hepatitis B surface antigen (02/08/2012 7:25 AM CDT) Analysis Performed At Patho logist Time Signature Hep B Surface Negative NEG [facility] Agn [facility] Specimen Anatomical Collection Method Collection Time Receive d Time (Source) Location / / Volume Laterality Blood specimen 02/08/2012 7:25 AM 012 7:30 (specimen) CDT AM CDT Darian Joshi MD LAB - BLOOD ORDERABLES Performing Organization Address City/[facility]/ZIP Code Phon e Number [address] LABS Hepatitis B surface antibody (02/08/2012 7:25 AM CDT) P athologist Signature Hep B Surface 135.0 [facility] LABS Comment: Positive, Patient is considered [...] [facility]/ZIP Code Phon e Number [address] LABS Hepatitis B core antibody (02/08/2012 7:25 AM CDT) Analysis Performed At Patho logist Time Signature Hepatitis B Negative NEG [facility] LABS Specimen Anatomical Collection Method Collection Time Receive d Time (Source) Location / / Volume Laterality Blood specimen 02/08/2012 7:25 AM 012 7:30 (specimen) CDT AM CDT Darian Joshi MD LAB - BLOOD ORDERABLES Performing Organization Address City/[facility]/ZIP Code Phon e Number [facility] [address] [place], [place] [phone] [place] [address] LABS EBV VCA IgG Antibody (02/08/2012 7:25 AM CDT) athologist Signature EBV VCA IgG 188.00 U/mL [facility] Antibody [facility] Comment: Positive, suggests immunologic exposure. Specimen Anatomical Collection Method Collection Time Receive d Time (Source) Location / / Volume Laterality Blood specimen 02/08/2012 7:25 AM 012 7:30 (specimen) CDT AM CDT Darian Joshi MD LAB - BLOOD ORDERABLES Performing Organization Address City/[facility]/ZIP Code Phon e Number [address] [address] [facility] LABS CMV IGG ANTIBODY (02/08/2012 7:25 AM CDT) athologist Signature CMV IgG 3.30 U/mL [facility] Antibody [facility] Comment: Positive for anti-CMV IgG Specimen Anatomical Collection Method Collection Time Receive d Time (Source) Location / / Volume Laterality Blood specimen 02/08/2012 7:25 AM 012 7:30 (specimen) CDT AM CDT Darian Joshi MD LAB - BLOOD ORDERABLES Performing Organization Address City/[facility]/ZIP Code Phon e Number [address] [address] [facility] LABS Immunology recipient: SOT HLA Workup (ABC,DR,DQ,PRA,Crossmatch) (02/08/2012 7:25 AM CDT) [facility] gist Method Time Signature Immunology SOT HLA WORKUP [facility] Test Name [facility] Immunology Specimen [facility] Result received - [facility] CAMP[facility] LABS report to follow upon completion. Specimen Anatomical Collection Method Collection Time Receive d Time (Source) Location / / Volume Laterality Blood specimen 02/08/2012 7:25 AM 012 7:30 (specimen) CDT AM CDT Darian Joshi MD LAB - IMMUNOLOGY ORDERABLES Performing Organization Address City/State/ZIP Code Phon e Number [address] [place] [address] [place] [facility] (ABNORMAL) CBC with platelets differential (02/08/2012 7:25 AM CDT) [facility] gist Method Time Signature WBC 6.3 4.0 - [facility] 11.0 [place] 10e9/L [place] [facility] RBC Count 3.97 (L) 4.4 - 5.9 [facility] 10e12/L [facility] Hemoglobin 12.0 (L) 13.3 - [facility] 17.7 g/dL [facility] Hematocrit 36.3 (L) 40.0 - [facility] 53.0 % [facility] MCV 91 78 - 100 [facility] fl [facility] MCH 30.2 26.5 - [facility] 33.0 pg [facility] MCHC 33.1 31.5 - [facility] 36.5 g/dL [facility] RDW 15.3 (H) 10.0 - [facility] 15.0 % [facility] Platelet Count 144 (L) 150 - 450 [facility] 10e9/L [facility] Diff Method Automated [facility] Method [facility] % Neutrophils 57.7 40 - 75 % [facility] % Lymphocytes 27.7 20 - 48 % [facility] % Monocytes 8.2 0 - 12 % [facility] % Eosinophils 6.1 (H) 0 - 6 % [facility] % Basophils 0.3 0 - 2 % [facility] % Immature 0.0 0 - 0.4 % [facility] Granulocytes [facility] Absolute 3.6 1.6 - 8.3 [facility] Neutrophil 10e9/L [facility] Absolute 1.7 0.8 - 5.3 [facility] Lymphocytes 10e9/L [facility] Absolute 0.5 0.0 - 1.3 [facility] Monocytes 10e9/L [facility] Absolute 0.4 0.0 - 0.7 [facility] Eosinophils 10e9/L [facility] Absolute 0.0 0.0 - 0.2 [facility] Basophils 10e9/L [facility] Abs Immature 0.0 0 - 0.03 [facility] Granulocytes 10e9/L [facility] Specimen Anatomical Collection Method Collection Time Receive d Time (Source) Location / / Volume Laterality Blood specimen 02/08/2012 7:25 AM 012 7:30 (specimen) CDT AM CDT Darian Joshi MD LAB - BLOOD ORDERABLES Performing Organization Address City/[facility]/ZIP Code Phon e Number [facility] [address] LABS Lupus panel (02/08/2012 7:25 AM CDT) Component Value Ref Test Analysis Performed At Patholo gist Range Method Time Signature Lupus Result Negative NEG [facility] (Note) [place] COMMENTS: [facility] The INR is normal. APTT is normal. ??1:2 Mix is not indicated. DRVVT Screen is normal. Thrombin time is normal. NEGATIVE TEST; A LUPUS ANTICOAGULANT WAS NOT DETECTED IN THI S SPECIMEN WITHIN THE LIMITS OF THE TESTING REPERTOIRE. If the clinical picture is strongly suggestive of an antipho spholipid syndrome, recommend anticardiolipin and hyrb-[id number] (IgG and IgM) antibody tests. Dee Duenas M.D. ??[phone] 02-09-2012. APTT'S: ?? Seconds Reagent = Stago [...] [facility]/ZIP Code Phon e Number [facility] [address] LABS Thrombin time (02/08/2012 7:25 AM CDT) athologist Signature Thrombin Time 16.7 13.0 - [facility] 19.0 sec CAMPUS LABS Specimen Anatomical Collection Method Collection Time Receive d Time (Source) Location / / Volume Laterality Blood specimen 02/08/2012 7:25 AM 012 7:30 (specimen) CDT AM CDT Darian Joshi MD LAB - BLOOD ORDERABLES Performing Organization Address City/[facility]/ZIP Code Phon e Number [facility] 500 [place], [place] [phone] [place] [address] LABS Partial thromboplastin time (02/08/2012 7:25 AM CDT) P athologist Signature PTT 29 22 - 37 sec [facility] Specimen Anatomical Collection Method Collection Time Receive d Time (Source) Location / / Volume Laterality Blood specimen 02/08/2012 7:25 AM 012 7:30 (specimen) CDT AM CDT Darian Joshi MD LAB - BLOOD ORDERABLES Performing Organization Address City/[facility]/ZIP Code Phon e Number [address] LABS INR (02/08/2012 7:25 AM CDT) P athologist Signature INR 1.11 0.86 - 1.14 [facility] Specimen Anatomical Collection Method Collection Time Receive d Time (Source) Location / / Volume Laterality Blood specimen 02/08/2012 7:25 AM 012 7:30 (specimen) CDT AM CDT Darian Joshi MD LAB - BLOOD ORDERABLES Performing Organization Address City/State/ZIP Code Phon e Number [phone] [place] [address] LABS Factor 2 and 5 mutation analysis (02/08/2012 7:07 AM CDT) Component Value Ref Test Analysis Performed At [facility] gist Range Method Time Signature Copath Report Patient Name: ELINOR GUTHRIE MR#: [id number] Specimen #: [id number] Collected: 02/08/2012 07:07 Received: 02/08/2012 09:00 Reported: 02/11/2012 14:03 Ordering Phy(s): DARIAN JOSHI TEST(S) REQUESTED: A: Factor 5 Leiden and Factor 2 by PCR B: DNA Isolation, High purity extraction SPECIMEN DESCRIPTION: Blood METHODOLOGY: ?? The regions of genomic DNA containing the G1 691A Factor 5 gene mutation (Factor V Leiden) and the Factor 2(Prothrombin [id number]) gene mutation were simultaneously amplified using the [employer] chain reaction. ??The amplified products were digested with restri ction endonuclease TaqI and products were analyzed by gel electrop horesis. RESULTS: FACTOR 5-LEIDEN RESULTS: Mutation analyzed: ? 1691G>A Factor 5 Mutation Interpretation: ?ABSENT Factor 5 Mutation genotype: ?G/G FACTOR 2/PROTHROMBIN RESULTS: Mutation analyzed: ? 75339D>A Factor 2 Mutation Interpretation: ?ABSENT Factor 2 Mutation genotype: ?G/G INTERPRETATION: The patient is negative for the Factor 5 mutation and negati ve for the Factor 2 mutation. This test was developed and its performance determined by kj de [facility] ??Molecular Diagnostic Laboratory. It has [...] Stone MD TESTING LAB LOCATION: [place] [id number] [facility] [address] [place] [id number] COLLECTION SITE: Client: ??[facility] Location: ??UUTXO (B) Specimen Anatomical Collection Method Collection Time Receive d Time (Source) Location / / Volume Laterality 02/08/2012 7:07 AM 2 9:00 CDT AM CDT Provider Unknown LAB - GENOMICS Performing Organization Address City/State/ZIP Code Phon e Number [facility] (ABNORMAL) Routine UA with microscopic (02/08/2012 7:06 AM CDT) Component Value Ref Test Analysis Performed At [facility] gist Range Method Time Signature Color Urine Light Yellow [facility] [place] [facility] Appearance Urine Clear [facility] Glucose Urine 300 (A) NEG [facility] mg/dL [facility] Bilirubin Urine Negative NEG [facility] Ketones Urine Negative NEG [facility] mg/dL [facility] Specific [place] 1.010 1.003 - [facility] Urine 1.035 [facility] Blood Urine Negative NEG [facility] pH Urine 7.5 (H) 5.0 - [facility] 7.0 pH UNIVERSITY CAMPUS LABS Protein Albumin 300 (A) NEG [facility] Urine mg/dL UN[facility] CAMP[facility] LABS Urobilinogen Normal 0.0 - [facility] mg/dL 2.0 [facility]ITY mg/dL CAMPUS LABS Nitrite Urine Negative NEG [facility] LABS Leukocyte Negative NEG [facility] Esterase Urine [facility] [place] [facility] Source Unspecified [facility] Urine [facility]AMP[facility] LABS WBC Urine 1 0 - 2 [facility] /HPF [facility] [place] [facility] RBC Urine <1 0 - 2 [facility] /HPF [facility] Hyaline Casts 3 (H) 0 - 2 [facility] /LPF [facility] [place] [facility] Specimen Anatomical Collection Method Collection Time Receive d Time (Source) Location / / Volume Laterality Urine specimen 02/08/2012 7:06 AM 012 7:08 (specimen) CDT AM CDT Darian Joshi MD LAB - URINE ORDERABLES Performing Organization Address City/State/ZIP Code Phon e Number [facility] [address] [facility] documented in this encounter Visit Diagnoses Diagnosis Diabetes mellitus, type 2 (H) Type II or unspecified type diabetes aung litus without mention of complication, not stated as uncontrolled End stage renal disease (H) End stage renal disease documented in this encounter Care Teams Stitcher Set Up Operator Automatic Relationship Specialty Start Date End Date Toña Jones MD PCP - General Nephrology 11/25/11 01/01/14 documented as of this encounter
--- OUTSIDE RECORDS SUMMARY | 2022-07-05 14:52 | XMS_ITS | Encounter Summary ---
:1950 Author Organization [place] Address [address] [place] [address]. [place] [address] Care Team Providers Name Role Phone Toña Jones MD Primary Care Provider Ingrid Santana RN Unavailable Unavailable Momo Forbes Primary Care Provider Encounter Details Date Type Department Care Team Description 01/06/2011 Historic Results [facility] Provider, MD Marcela Social History [...] on filedocumented in this encounter Care Teams Tug Boat Captain Relationship Specialty Start Date End Date Toña Jones MD PCP - General Nephrology 11/25/11 01/01/14 Momo Forbes PCP - General Family Practice 01/02/[address] [address] Siers, Ingrid A, RN Registered Nurse Transplant 02/10/12 documented as of this encounter
--- OUTSIDE RECORDS SUMMARY | 2022-07-05 14:52 | XMS_ITS | Encounter Summary ---
:1950 Author Organization [place] Address [address] [place] [address]. [place] [address] Care Team Providers Name Role Phone Toña Jones MD Primary Care Provider Ingrid Santana RN Unavailable Unavailable Momo Forbes Primary Care Provider Encounter Details Date Type Department Care Team Description 05/12/2011 Historic Results [facility] Provider, MD Marcela Social History [...] filedocumented in this encounter Care Teams Residential Care Facility Manager Relationship Specialty Start Date End Date Toña Jones MD PCP - General Nephrology 11/25/11 01/01/14 Momo Forbes PCP - General Family Practice 01/02/[address] [address] Siers, Ingrid A, RN Registered Nurse Transplant 02/10/12 documented as of this encounter
--- OUTSIDE RECORDS SUMMARY | 2022-07-05 14:52 | XMS_ITS | Encounter Summary ---
:1950 Author Organization [place] Address [address] [facility] [place] [address] Care Team Providers Name Role Phone Toña [...] filedocumented in this encounter Care Teams Furniture Repairer Relationship Specialty Start Date End Date Toña Jones MD PCP - General Nephrology 11/25/11 01/01/14 Momo Forbes PCP - General Family Practice 01/02/14 [facility] [address] [place] [address] Ingrid Santana, RN Registered Nurse Transplant 02/10/12 documented as of this encounter
--- OUTSIDE RECORDS SUMMARY | 2022-07-05 14:52 | XMS_ITS | Encounter Summary ---
:1950 Author Organization [place] Address [address] [place] [address]. [place] [address] Care Team Providers Name Role Phone Toña [...] filedocumented in this encounter Care Teams Barge Hand Relationship Specialty Start Date End Date Toña Jones MD PCP - General Nephrology 11/25/11 01/01/14 Momo Forbes PCP - General Family Practice 01/02/[address] [address] Siers, Ingrid A, RN Registered Nurse Transplant 02/10/12 documented as of this encounter
--- OUTSIDE RECORDS SUMMARY | 2022-07-05 14:52 | XMS_ITS | Encounter Summary ---
:1950 Author Organization [place] Address [address] [place] [address]. [place] [address] Care Team Providers Name Role Phone Toña Jones MD Primary Care Provider Ingrid Santana RN Unavailable Unavailable Momo Forbes Primary Care Provider Encounter Details Date Type Department Care Team Description 04/12/2007 Historic Results [facility] Provider, MD Marcela Social History Tobacco Use [...] filedocumented in this encounter Care Teams Wire Wrapper Machine Operator Relationship Specialty Start Date End Date Toña Jones MD PCP - General Nephrology 11/25/11 01/01/14 Momo Forbes PCP - General Family Practice 01/02/[address] [address] Siers, Ingrid A, RN Registered Nurse Transplant 02/10/12 documented as of this encounter
--- OUTSIDE RECORDS SUMMARY | 2022-07-05 14:52 | XMS_ITS | Encounter Summary ---
:1950 Author Organization [place] Address [address] [place] [address]. [place] [address] Care Team Providers Name Role Phone Toña Jones MD Primary Care Provider Ingrid Santana RN Unavailable Unavailable Momo Forbes Primary Care Provider Encounter Details Date Type Department Care Team Description 12/13/2005 Historic Results [facility] Provider, MD Marcela Social History Tobacco [...] on filedocumented in this encounter Care Teams Enamel Shader Relationship Specialty Start Date End Date oTña Jones MD PCP - General Nephrology 11/25/11 01/01/14 Momo Forbes PCP - General Family Practice 01/02/[address] [address] Siers, Ingrid A, RN Registered Nurse Transplant 02/10/12 documented as of this encounter
--- OUTSIDE RECORDS SUMMARY | 2022-07-05 14:52 | XMS_ITS | Encounter Summary ---
:1950 Author Organization [place] Address [address] [place] [address]. [place] [address] Care Team Providers Name Role Phone Toña Jones MD Primary Care Provider Ingrid Santana RN Unavailable Unavailable Momo Forbes Primary Care Provider Encounter Details Date Type Department Care Team Description 01/02/2008 Historic Results [facility] Provider, MD Marcela [...] on filedocumented in this encounter Care Teams Curer Acid Drum Relationship Specialty Start Date End Date Toña Jones MD PCP - General Nephrology 11/25/11 01/01/14 Momo Forbes PCP - General Family Practice 01/02/[address] [address] Siers, Ingrid A, RN Registered Nurse Transplant 02/10/12 documented as of this encounter
--- OUTSIDE RECORDS SUMMARY | 2022-07-05 14:52 | XMS_ITS | Encounter Summary ---
:1950 Author Organization [place] Address [address] [facility] [place] [address] Care Team Providers Name Role Phone Toña Jones MD Primary Care Provider Ingrid Santana RN Unavailable Unavailable Encounter Details Date Type Department Care Team Description 12/07/2011 Orders Only Nephrology Chucho Joshi MD Dialysis patient (H) 2nd Floor, Clinic 2A [address] RANJAN (Primary Dx) Tommy Ruiz[address] [place] [address] [place], [place] [phone] (Wo rk) [address] [phone] Social History Tobacco Use Types Packs/Day Years Used Date Smoking Tobacco: Never Assessed Sex Assigned at Date Recorded Not on file documented as of this encounter Plan of Treatment Not on filedocumented as of this encounter Visit Diagnoses Diagnosis Dialysis patient (H) - Primary Renal dialysis status documented in this encounter Care Teams Internal Grinder Tender Relationship Specialty Start Date End Date Toña Jones MD PCP - General Nephrology 11/25/11 01/01/14 Ingrid Santana RN Registered Nurse Transplant 02/10/12 documented as of this encounter
--- OUTSIDE RECORDS SUMMARY | 2022-07-05 14:52 | XMS_ITS | Encounter Summary ---
:1950 Author Organization [place] Address [address] [place] [address]. [place] [address] Care Team Providers Name Role Phone Toña Jones MD Primary Care Provider Ingrid Santana RN Unavailable Unavailable Momo Forbes Primary Care Provider Encounter Details Date Type Department Care Team Description 01/12/2010 Historic Results [facility] Provider, MD Marcela Social History [...] filedocumented in this encounter Care Teams Hot Press Operator Relationship Specialty Start Date End Date Toña Jones MD PCP - General Nephrology 11/25/11 01/01/14 Momo Forbes PCP - General Family Practice 01/02/[address] [address] Siers, Ingrid A, RN Registered Nurse Transplant 02/10/12 documented as of this encounter
--- OUTSIDE RECORDS SUMMARY | 2022-07-05 14:52 | XMS_ITS | Encounter Summary ---
:1950 Author Organization [place] Address [address] [facility] [place] [address] Care Team Providers Name Role Phone Toña [...] - HIM SCAN - 11/02/2005 8:27 AM EPIC MANAGER ARCHIVE LAB RESULT - HIM SCAN - 11/02/2005 8:25 AM EPIC MANAGER ARCHIVE documented in this encounter Results LAB RESULT - HIM SCAN - ARCHIVE (11/02/2005 8:27 AM EPIC MANAGER) Specimen (Source) Anatomical Location Collection Method / Collectio n Time Received Time / Laterality Volume Narrative This result has an attachment that is no t available. Marcela Provider LAB - BLOOD ORDERABLES LAB RESULT - HIM SCAN - ARCHIVE (11/02/2005 8:25 AM EPIC MANAGER) Specimen (Source) Anatomical Location Collection Method / Collectio n Time Received Time / Laterality Volume Narrative This result has an attachment that is no t available. Marcela Provider LAB - BLOOD ORDERABLES documented in this encounter Visit Diagnoses Not on filedocumented in this encounter Care Teams Construction Coordinator Relationship Specialty Start Date End Date Toña Jones MD PCP - General Nephrology 11/25/11 01/01/14 Momo Forbes PCP - General Family Practice 01/02/[address] [address] Ingrid Santana, RN Registered Nurse Transplant 02/10/12 documented as of this encounter
--- OUTSIDE RECORDS SUMMARY | 2022-07-05 14:52 | XMS_ITS | Encounter Summary ---
:1950 Author Organization [place] Address [address] [place] [address]. [place] [address] Care Team Providers Name Role Phone Toña Jones MD Primary Care Provider Ingrid Santana RN Unavailable Unavailable Momo Forbes Primary Care Provider Encounter Details Date Type Department Care Team Description 01/20/2012 Historic Results [facility] Provider, MD [...] filedocumented in this encounter Care Teams Assistant Media Buyer Relationship Specialty Start Date End Date Toña Jones MD PCP - General Nephrology 11/25/11 01/01/14 Momo Forbes PCP - General Family Practice 01/02/[address] [address] Siers, Ingrid A, RN Registered Nurse Transplant 02/10/12 documented as of this encounter
--- OUTSIDE RECORDS SUMMARY | 2022-07-05 14:52 | XMS_ITS | Encounter Summary ---
:1950 Author Organization [place] Address Replaced by [facility] [place] [address] Care Team Providers Name Role Phone Toña Jones MD Primary Care Provider Reason for Visit Reason Comments Transplant Evaluation Kidney transplant evaluation - Diabetes, End Stage Renal Disease Encounter Details Date Type Department Care Team Description 02/08/2012 Office Visit The Transplant Edda Cardenas, Ty Blink, DM (diabetes 2nd Floor, Clinic 2A MD mellitus), type 2 (H) Tommy Wilburn (Primar y Dx) [address] [phone] Social History Tobacco Use Types Packs/Day Years [...] (willing/able to accept information): Yes Any cultural factors/anglican beliefs that may influence understanding or compliance? [...] uncontrolled documented in this encounter Care Teams Video Player Mechanic Relationship Specialty Start Date End Date Toña Jones MD PCP - General Nephrology 11/25/11 01/01/14 documented as of this encounter
--- OUTSIDE RECORDS SUMMARY | 2022-07-05 14:52 | XMS_ITS | Encounter Summary ---
:1950 Author Organization [place] Address [address] [facility] [place] [address] Care Team Providers Name Role Phone Toña Jones MD Primary Care Provider Blayne Santana RN Unavailable Unavailable Reason for Visit Reason Comments Transplant Evaluation Encounter Details Date Type Department Care Team Description 02/08/2012 Office Visit Transplant Surgery Jesus Cardenas, DM (di abetes mellitus), type 2 (H); Clinic End stage renal disease (H) 2nd Floor, Clinic [address] [phone] Social History Tobacco Use Types Packs/Day Years [...] from the original note were not included. 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 Smoking status: [...] Take 1 tablet by mouth daily. B ozuaekr-K-paztq acid (NEPHROCAPS) 1 MG capsule Take 1 [...] Test 02/08/12 0725 INR 1.11 F2MAR -- [id number] -- Lipid Profile: Cholesterol Date Value Range [...] 09, 2012 3:21 PM Pre Abdominal Organ Sanipractic Physician Evaluation Note: present: Dr. Jesus Cardenas Attendees: self Type of transplant: kidney Required Topic(s) Discussed: Evaluation notification document, SRTR data, Multiple wait list brochure, FUR PLUCKER, Evaluation/approval process, Selection committee process, Wait list [...] spent with patient: 15 minutes -- Nurse Sanipractic Physician Pager [phone] BLAYNE SANTANA -- Nurse Sanipractic Physician Pager [phone] >> Lena Sánchez RN santino Feb 08, [...] disease documented in this encounter Care Teams Rough Rounder Machine Relationship Specialty Start Date End Date Toña Jones MD PCP - General Nephrology 11/25/11 01/01/14 Balyne Santana, RN Registered Nurse Transplant 02/10/12 documented as of this encounter
--- OUTSIDE RECORDS SUMMARY | 2022-07-05 14:52 | XMS_ITS | Encounter Summary ---
:1950 Author Organization [place] Address [address] [place] [address] Care Team Providers Name Role Phone oTña Jones MD Primary Care Provider Reason for Visit Reason Onset Date Comments Pre Visit Planning - Done 02/07/2012 Consult prior to kidney transplant, needs EKG please. Encounter Details Date Type Department Care Team Description 02/07/[address] PRE [address] [facility] Barbara Bradley Pre Visit Planning - Physicians Orestes Licona MD Done (Consult prior to [facility] [address] kidney transplant, [place] [address] needs EKG please.) 4th Floor, Clinic [address] [phone] Social History Tobacco Use Types [...] on filedocumented in this encounter Care Teams Seconds Grader Relationship Specialty Start Date End Date Toña Jones MD PCP - General Nephrology 11/25/11 01/01/14 documented as of this encounter
--- OUTSIDE RECORDS SUMMARY | 2022-07-05 14:52 | XMS_ITS | Encounter Summary ---
:1950 Author Organization [place] Address [address] [facility] [place] [address] Care Team Providers Name Role Phone Toña [...] filedocumented in this encounter Care Teams Milk Tester Relationship Specialty Start Date End Date Toña Jones MD PCP - General Nephrology 11/25/11 01/01/14 Momo Forbes PCP - General Family Practice 01/02/14 [facility] [address] [place] [address] Ingrid Santana, RN Registered Nurse Transplant 02/10/12 documented as of this encounter
--- OUTSIDE RECORDS SUMMARY | 2022-07-05 14:52 | XMS_ITS | Encounter Summary ---
:1950 Author Organization [place] Address [facility] [place] [address] Care Team Providers Name Role Phone Toña Jones MD Primary Care Provider Reason for Referral - Closed Specialty Diagnoses / Procedures Referred By Contact Refer red To Contact Diagnoses Diabetes mellitus, type 2 (H) End stage renal disease (H) [facility] Renal 2nd Floor, [place] [phone] Referral ID Status Reason Start Date Expiration Date Visits Requ ested Visits Authorized [id number] Closed 12/02/2011 05/30/2012 1 1 - Closed Specialty Diagnoses / Procedures Referred By Contact Refer red To Contact Diagnoses Diabetes mellitus, type 2 (H) End stage renal disease (H) [facility] Renal [facility] Floor, [place] [phone] Referral ID Status Reason Start Date Expiration Date Visits Requ ested Visits Authorized [id number] Closed 12/02/2011 05/30/2012 1 1 - Closed Specialty Diagnoses / Procedures Referred By Contact Refer red To Contact Diagnoses Diabetes mellitus, type 2 (H) End stage renal disease (H) [facility] Renal 2nd Floor, [place] [phone] Referral ID Status Reason Start Date Expiration Date Visits Requ ested Visits Authorized [id number] Closed 12/02/2011 05/30/2012 1 1 - Closed Specialty Diagnoses / Procedures Referred By Contact Refer red To Contact Diagnoses Diabetes mellitus, type 2 (H) End stage renal disease (H) [facility] Renal 2nd Floor, Clinic 2A [place] [phone] Referral ID Status Reason Start Date Expiration Date Visits Requ ested Visits Authorized [id number] Closed 12/02/2011 05/30/2012 1 1 - Closed Specialty Diagnoses / Procedures Referred By Contact Refer red To Contact Diagnoses Diabetes mellitus, type 2 (H) End stage renal disease (H) [facility] Renal [facility] Floor, [place] [phone] Referral ID Status Reason Start Date Expiration Date Visits Requ ested Visits Authorized [id number] Closed 12/02/2011 05/30/2012 1 1 - Closed Specialty Diagnoses / Procedures Referred By Contact Refer red To Contact Diagnoses Diabetes mellitus, type 2 (H) End stage renal disease (H) [facility] Renal [facility] Floor, [place] [phone] Referral ID Status Reason Start Date Expiration Date Visits Requ ested Visits Authorized [id number] Closed 12/02/2011 05/30/2012 1 1 - Closed Specialty Diagnoses / Procedures Referred By Contact Refer red To Contact Diagnoses Diabetes mellitus, type 2 (H) End stage renal disease (H) [facility] Renal 2nd Floor, Clinic 2A [address] [phone] Referral ID Status Reason Start Date Expiration Date Visits Requ ested Visits Authorized [id number] Closed 12/02/2011 05/30/2012 1 1 - Closed Specialty Diagnoses / Procedures Referred By Contact Refer red To Contact Diagnoses Diabetes mellitus, type 2 (H) End stage renal disease (H) [facility] Renal 2nd Floor, Clinic 2A [address] [phone] Referral ID Status Reason Start Date Expiration Date Visits Requ ested Visits Authorized [id number] Closed 12/02/2011 05/30/2012 1 1 - Closed Specialty Diagnoses / Procedures Referred By Contact Refer red To Contact Diagnoses Diabetes mellitus, type 2 (H) End stage renal disease (H) [facility] Renal 2nd Floor, Clinic 2A [address] [phone] Referral ID Status Reason Start Date Expiration Date Visits Requ ested Visits Authorized [id number] Closed 12/02/2011 05/30/2012 1 1 Encounter Details Date Type Department Care Team Description 12/02/2011 Orders Only Nephrology Ingrid Santana, Diabetes mellitus, type 2 (H ); 2nd Floor, Clinic 2A RN End stage renal disease (H) [address] [phone] Social History Tobacco Use Types [...] 2 (H) End stage renal disease (H) STOCK OR DELIVERY CLERK Referral Routine Diabetes mellitus, Ordered: 12/02/2011 REFERRAL type 2 (H) End stage renal disease (H) NEPHROLOGY ADULT REFERRAL Referral Routine Diabetes mellit us, Ordered: 12/02/2011 type 2 (H) End stage renal disease (H) GENERAL SURG ADULT Referral Routine Diabetes mellitus, Ord ered: 12/02/2011 REFERRAL type 2 (H) End stage renal disease (H) BRAZING FURNACE OPERATOR REFERRAL Referral Routine Diabetes mellitu s, [...] disease documented in this encounter Care Teams Head Of Sales Relationship Specialty Start Date End Date Toña Jones MD PCP - General Nephrology 11/25/11 01/01/14 documented as of this encounter
--- OUTSIDE RECORDS SUMMARY | 2022-07-05 14:52 | XMS_ITS ---
:1950 Author Organization [place] Address [address] [place] [address] Care Team Providers Name Role Phone Momo Forbes Primary Care Provider Joseph Quintana MD Unavailable [facility] [place] [facility] - MNUMOrgan Received: Right KidneyTransplanted on 02/02/2014Marked as Active Follow-up on 02/02/2014 Kidney CoordinatorCHAPO Durhamhone: N/AFax: N/AEmail: N/A [place] Organ Diagnosis Organ Primary Contributory Kidney Diabetes Mellitus - Type II Infection History Noted Survival Infection Treatment Organism Resolved 09/18/2020 6 years 7 months Gram-negative Surgery, Medical bacterial infection management 09/17/2020 6 years 7 months Bacterial infection Antibiotics Donor Information Organ ABO Source Meets Risk HLA Match Mismatches [facility] Criteria Right Kidney A1 DBD No A: [...] N/A G German Jones MD Referring Physician [phone] [email or web address] Post-Transplant Pre-Transplant Admitted: 02/02/2014 Referred: 12/07/2011 Transplanted: 02/02/2014 Evaluation began: 02/08/2012 Discharged: 02/08/2014 Committee: 02/16/2012 Center waitlisted: 02/18/2012 Dialysis History Dialysis History Start End Type Comments Center 09/06/2011 02/02/2014 Hemo Dialysis Days per week -- [facility] ([facility] Dialysis Center Information Center Phone Fax Address [facility] [phone] [address] (ESRD) [facility] [phone]
--- OUTSIDE RECORDS SUMMARY | 2022-07-05 14:52 | XMS_ITS | Encounter Summary ---
:1950 Author Organization [place] Address [address] [facility] [place] [address] Care Team Providers Name Role Phone Toña [...] on filedocumented in this encounter Care Teams Activity Leader Relationship Specialty Start Date End Date Toña Jones MD PCP - General Nephrology 11/25/11 01/01/14 Momo Forbes PCP - General Family Practice 01/02/14 [facility] [address] [place] [address] Ingrid Santana, RN Registered Nurse Transplant 02/10/12 documented as of this encounter
== END 2022-07-05 14:07 | disposition home or self-care (01) ==
LOC: WOUND 14:06
PROVIDERS: PCP Family Medicine; Visit Provider Surgery
DX: L89.313 Pressure ulcer of right buttock, stage 3 (principal); L89.323 Pressure ulcer of left buttock, stage 3
CPT/HCPCS: 99214

== ENCOUNTER 2022-07-07 10:39 | Outpatient (CLI) | payer MEDICARE, BC, SELFPAY ==
--- OUTSIDE RECORDS SUMMARY | 2022-07-07 10:42 | XMS_ITS | Encounter Summary ---
:1950 Author Organization [place] Address [address] [place] [address] Care Team Providers Name Role Phone Momo Forbes Primary Care Provider Mariano, Joseph Durham MD Unavailable Reason for Visit Reason Onset Date Comments Transplant Lab 12/10/2021 Encounter Details Date Type Department Care Team Description 12/10/2021 Telephone [facility] Transplant Mati Recinos RN Transplant Lab Clinic [address] [place] [phone] Social History Tobacco Use Types Packs/Day [...] filedocumented in this encounter Care Teams Fire And Safety Helper Relationship Specialty Start Date End Date Momo Forbes PCP - General Family Practice 01/02/14 [facility] [address] [place] [address] Joseph Quintana, Assigned Nephrology 03/29/21 MD Provider [address] [place] [address] [address] [place], [place] [phone] documented as of this encounter
--- OUTSIDE RECORDS SUMMARY | 2022-07-07 10:42 | XMS_ITS | Encounter Summary ---
:1950 Author Organization [place] Address [facility] [place] [address] Care Team Providers Name Role Phone Momo Forbes Primary Care Provider Joseph Quintana MD Unavailable Reason for Visit Reason Onset Date Comments Transplant 06/07/2022 Covid reassessment Encounter Details Date Type Department Care Team Description 06/07/2022 Telephone [facility] Gretta Peacock RN [facility] [address] [place] [phone] Social History Tobacco Use Types Packs/Day [...] that. Mycophenolate was held while inpatient at [facility]. Patient was discharged yesterday, Patient resumed his usual dose of MMF 750 mg bid. Current symptoms: cough, denies SOB. States he is feeling well. Will update transplant nephrology. Gretta Peacock RN Residential Support Worker [phone] ADDENDUM: Satish Gómez MD Sveiven, Sara, RN I would actually have him take MMF 500mg bid and if feeling ok in 1 week increase to 750mg bid Patient v/u of taking MMF 500 mg bid for one week. Will reassess symptoms in one week. Gretta Peacock affiliate managerResidential Support Worker [phone] documented in this encounter Plan of Treatment Not on filedocumented as of this encounter Visit Diagnoses Not on filedocumented in this encounter Care Teams Lipcoat Sprayer Relationship Specialty Start Date End Date Momo Forbes PCP - General Family Practice 01/02/14 [facility] [address] [place] [address] Joseph Quintana, Assigned Nephrology 03/29/21 Provider [address] [place], [place] [address] documented as of this encounter
--- OUTSIDE RECORDS SUMMARY | 2022-07-07 10:42 | XMS_ITS | Encounter Summary ---
:1950 Author Organization [place] Address [facility] [place] [address] Care Team Providers Name Role Phone Momo Forbes Primary Care Provider Joseph Quintana MD Unavailable Reason for Visit Reason Onset Date Comments Erroneous encounter-disregard 05/02/2022 Encounter Details Date Type Department Care Team Description 05/02/2022 [facility] Gretta Peacock, [facility] Transplant Clinic encounter-disregard [address] [place] [phone] Social History Tobacco Use Types [...] filedocumented in this encounter Care Teams Vp Scientific Relationship Specialty Start Date End Date Momo Forbes PCP - General Family Practice 01/02/14 [facility] [address] [place] [address] Joseph Quintana, Assigned Nephrology 03/29/21 Provider [address] [facility] [address] [facility] [address] [place] [address] documented as of this encounter
--- OUTSIDE RECORDS SUMMARY | 2022-07-07 10:42 | XMS_ITS | Encounter Summary ---
:1950 Author Organization [place] Address [address] [place] [address] Care Team Providers Name Role Phone Momo Forbes Primary Care Provider Mariano, Joseph Durham MD Unavailable Reason for Visit Reason Onset Date Comments Left Message To Call 05/06/2022 Left 05/06/2022 at 11:55PM., Wanted to discuss lab results Encounter Details Date Type Department Care Team Description 05/06/2022 [facility] Gretta Peacock RN Left Message To Call Transplant Clinic (Left 05/06/2022 at 9 [facility] [address] 11:55PM., Wanted to [place], [place] discuss lab results) [phone] Social History [...] on filedocumented in this encounter Care Teams Emts Relationship Specialty Start Date End Date Momo Forbes PCP - General Family Practice 01/02/14 [facility] [address] [place] [address] Joseph Quintana, Assigned Nephrology 03/29/21 MD Provider 717 [facility] [address] [facility] [address] [place] [address] documented as of this encounter
--- OUTSIDE RECORDS SUMMARY | 2022-07-07 10:42 | XMS_ITS | Clinical Summary ---
:1950 Author Organization [employer] [facility] [place] [address] Care Team Providers Name Role Phone Momo Forbes MD Primary Care Provider [phone] Allergies No known active allergies Medications [...] Okay to use Medela W[facility] Right foot wound debridement with application of integra bilayer matrix and wound vac, 10.0 cm x 5.0 cm x 0.6 cm. M- W-F dressing changes gabapentin Take 1 capsule 21 capsule 0 09/26/19 Act jo (NEURONTIN) 300 mg by mouth 3 times 21 capsuleIndications: daily. neuropathic pain Indications: neuropathic pain durable medical Custom [place] boot 1 Each 0 11/27/19 Active equipment [...] [place] Hypertension; Arnoldo Gregory Cough in adult [facility] Discharge Summary - Arnoldo Gregory [facility] - 06/20/2022 8:17 AM CDT Images from the original not e were not included. HOSPITAL DISCHARGE SUMMARY Patient Name: Diego Guthrie Date of : 1950 Age: 72 y.o. [id number] Primary Physician: Momo oFrbes MD Admission Date: 06/15/2022 Discharge Date: 06/20/2022 He will be discharged from [facility] to home. 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 male who was transferred from [facility] after initially presenting there on June [...] COREG Take 12.5 mg by mouth 2 siddhartha es daily with meals. * durable medical equipment For diagnoses: CHARCOT FOOT, PERIPHERAL NEUROPATHY, Status post below knee amputation, unspecified laterality (HC), Type 2 diabetes mellitus with diabetic nephropathy, with long-term current use of insulin (HC) Commonly known as: DME Custom [place] boot to control charcot midfoot instability * [...] Rashaaday to use Medela Wound Vac [facility] Right foot wound debridement with application [...] your medicines [facility] [address] [facility] [address] [place] [id number] ?? albuterol HFA 90 mcg/actu ation inhaler [...] and I nstructions AMB CONSULT TO HOME shelter Health Certification/F dharmesh to Face Attestation: I certify that this patient is confined to his/her home and needs intermittent retirement care, physical therapy and/or speech therapy or continues to need occupational therapy. A plan of care has been established and will be reviewed periodically by a physician or allowed practitioner. Services will be furnished while the patient is under the care of a physician or allowed practitioner. The beni ent had a qzkn-ly-tudt encou nter with a physician or an [...] [facility] [place] [facility] June 22 at 10:50 with Alexandria Banuelos. [employer] [phone] You have been referred to [facility] with [facility] ( ) . Please call [...] scarlett w up appointment(s) Momo Forbes MD [facility] follow up May resume ARB med [...] medical emergency. Why were you at the [facility]? You were in the hospital fo [...] 489, patient will need outpatient follow-up. ?? Electronically signed by Arnoldo Roberts, [facility] at 06/20/2022 8:38 AM CDT 06/15/2022 Travel 06/14/2022 - Emergency Rosenda Blancas Hypoxia ( Primary Dx); 06/15/2022 MD Yi COVID-19 06/14/2022 Travel 06/01/2022 - Hospital Encounter Cayetano Shay Pneumon ia due to COVID-19 virus (Primary Dx); 06/05/2022 MD Momo Hypoxia; Víctor Schuler Chronic kidney disease, unspecified CKD stage; DO Sara Urinary tract infection without hematuri a, site unspecified; Cielo Weaver Cough, u nspecified type; L, B[employer]KE [employer]OE RE[employer]DER Chronic atrial fibrillation (HC); Giovanni Lara, Pneumon ia of right lower lobe due to infectious organism; History of dasha l transplant; Post-nasal drai nagsantino Discharge Summary - Víctor Schuler DO - 06/05/2022 10:47 AM CDT Images from the original not e were not included. HOSPITALIST DISCHARGE SUMMAR Y ? ? [facility] Admission Date: 06/01/2022 Discharge Date: 06/05/2022 [...] post renal transplant in 2013 at the [facility] on CellCept and Prograf who [...] transplant team because he is inpatient per [place]'s policy given the EUA stipulations. He did [...] COREG Take 12.5 mg by mouth 2 siddhartha es daily with meals. * durable medical equipment For diagnoses: CHARCOT FOOT, PERIPHERAL NEUROPATHY, Status post below knee amputation, unspecified laterality (HC), Type 2 diabetes mellitus with diabetic nephropathy, with long-term current use of insulin (HC) Commonly known as: DME Custom [place] boot to control charcot midfoot instability * [...] Okay to use Medela Wound Vac [facility] Right foot wound debridement with application [...] your medicines These [id number] [address] [address] ?? cefuroxime axetil 500 mg tablet ?? dexAMETHasone 6 mg tablet Pertinent Findings / Procedu res First weight: (!) 148.5 kg ( 327 lb 6.4 oz) (Weighed with prostetic leg on - prostetic leg adds 20 lbs) (06/01/22 2362) Last weight: (!) 148.4 kg (327 lb 3.2 oz) (06/02/22 7331) EXAM: Diego is alert, no acu te [...] 4.3 4.7 CHLORIDE -- 110 112 H [id number] -- BUN -- 42 H 36 H [...] LEUKOCYTE Moderate A Micro Microbiology Results (72 MELINDA RS) Procedure Component Value U nits Date/Time URINE CULTURE [[id number]] (Abnormal) (Susceptibility) Collected: 06/02/2244 Lab Status: Final [...] or P.mirablis. Linear View INFLUENZA A/B/H1N1 PCR [[id number]] (Normal) Collected: 06/02/2238 Lab Status: Final result Sp ecimen: Other from Nasopharyngeal Updated: 06/02/22122 INFLUENZA A PCR NOT Detecte d INFLUENZA B PCR NOT Detecte d COVID 19 [[id number]] (Abno rmal) Collected: 06/02/2238 Lab Status: Final [...] terminated or revoked sooner. BLOOD CULTURE X2 [[id number]] (Normal) Collected: 06/02/2224 Lab Status: Preliminary res ult Specimen: Blood Updated: 06/02/22506 CULTURE No growth to date. BLOOD CULTURE X2 [[id number]] (Normal) Collected: 06/02/2221 Lab Status: Preliminary [...] Duration 110 QT 362 QTc [address] [place] 26 Consultants None Curbside with his transplant [...] daycare: If you or others in your [facility] are working, please reach out to your Employer for further direction on work policies. For children who attend scho ol or day care, refer your child's school or day care policy for when its safe to return, You can also refer to the [facility] guidelines. Go to: [email or web address] Call 911 if you have [...] Centers for Disease Control (CDC) - https://www.cdc.gov/coronavirus/2019-nCoV/index.html [facility] ([facility]) - https://www.[facility]/diseases/coronavirus/index.html For children who attend scho ol or day care, refer to the following [facility] guidelines: Go to: https://www.[facility]/diseases/coronavirus/schools/exguide.pdf [facility][note 3]'s website www.[facility].[place] and Positioning and Breathing Exercises Positioning: [...] directed. Carry a phone (cordless or c BioHoriz[employer]ular) with you at all times in case [...] medical emergency. Why were you at the [facility]? The reason(s) you were in [facility] is/are COVID pneumonia and a [...] and examined today. Víctor Schuler DO Hospitalist, [facility] ? ? [phone] Cc: Sondra Renal Transplant Team 06/01/2022 Travel [...] 06/15/2022 1:00 AM CDT Plan of Treatment Health Maintenance Due Date [...] Progress BLOOD PRESSURE Blood Pressure No Cj mcdowell, - MAINTAINS BP Momo less than MD Christoph 140/90 Medical Devices Implanted Type Area Farm Or Ranch Animal Caretaker Device Shelf Model / Identifier Expiration Date Ser ial / Lot Drsg Wound 4x5in Matrix Bilayer Right: 08/21/2020 [id number] / Implanted: Qty: 1 on 09/23/2020 by Araceli Fowler DPM at [facility] / [id number] Description: DRSG WOUND 4X5IN MATRIX JYOTI BHAVIK [...] AM CDT 11:14 AM CDT Arnoldo Gregory [facility] CHEMISTRY Performing Organization Address City/State/ZIP Code Phon e Number [facility] [address] [phone] (ABNORMAL) CBC WITH AUTO DIFFERENTIAL (06/20/2022 5:44 AM CDT)Only the most recent of11 resultswithin the time period is included. [facility] gist Method Time Signature WHITE BLOOD 6.4 4.5 - 11.0 06/20/2022 [facility] COUNT thou/cu mm 6:27 AM CDT HOSPITAL [...] BASO 0.2 % 06/20/2022 [place] 6:27 AM T HOSPITAL ABSOLUTE 5.5 1.7 - 7.0 06/20/2022 [place] NEUTROPHILS thou/cu mm 6:27 AM CDT HOSPITAL ABSOLUTE 0.4 (L) 0.9 - 2.9 06/20/2022 [place] LYMPHOCYTES thou/cu mm 6:27 AM T HOSPITAL ABSOLUTE 0.4 <0.9 06/20/2022 [place] MONOCYTES thou/cu mm 6:27 AM CDT HOSPITAL ABSOLUTE 0.0 <0.5 06/20/2022 [place] EOSINOPHILS thou/cu mm 6:27 AM T HOSPITAL ABSOLUTE 0.0 <0.3 06/20/2022 [place] BASOPHILS thou/cu mm 6:27 AM CDT HOSPITAL Specimen Anatomical Collection Method / Collection Time Recei laura Time (Source) Location / Volume Laterality Blood BLOOD SPECIMEN / Venipuncture / 06/20/2022 5:44 2021 6:11 Unknown Unknown AM CDT AM CDT [facility] [place] [facility] HEMATOLOGY Performing Organization Address [facility] e Number [facility] [address] [phone] (ABNORMAL) PROTIME-INR (06/20/2022 5:44 AM CDT)Only the most recent of5 results within the time period is included. P athologist Signature INR 1.8 (H) <1.3 06/20/2022 [place] 6:22 AM CDT HOSPITAL PROTIME 20.1 (H) 12.0 - 13.8 06/20/2022 [place] sec 6:22 AM CDT HOSPITAL Specimen Anatomical Collection Method / Collection Time Recei laura Time (Source) Location / Volume Laterality Blood BLOOD SPECIMEN / Venipuncture / 06/20/2022 5:44 2021 6:12 Unknown Unknown AM CDT AM CDT Narrative [facility] - 06/20/2022 6:22 AM C DT ?Therapeutic [...] seconds if the patient is on UFH. [facility] [place] [facility] HEMATOLOGY Performing Organization Address [facility] e Number [facility] [address] [place] [phone] (ABNORMAL) BASIC METABOLIC PANEL (06/20/2022 5:44 AM CDT)Only the most recent of 6 resultswithin the time period is included. Analysis Performed At Patho logist Time Signature SODIUM 138 135 - 145 06/20/2022 [place] mmol/L 6:35 AM CDT HOSPITAL POTASSIUM 4.3 3.5 - 5.0 06/20/2022 [place] mmol/L 6:35 AM T HOSPITAL CHLORIDE 113 (H) 98 - 110 06/20/2022 [place] mmol/L 6:35 AM CDT HOSPITAL CO2,TOTAL 21 21 - 31 06/20/2022 [place] mmol/L 6:35 AM T HOSPITAL ANION GAP 4 (L) 5 - 18 06/20/2022 [place] 6:35 AM T HOSPITAL GLUCOSE 163 (H) 65 - 100 06/20/2022 [place] mg/dL 6:35 AM CDT HOSPITAL CALCIUM 8.9 8.5 - 10.5 06/20/2022 [place] mg/dL 6:35 AM CDT HOSPITAL BUN 51 (H) 8 - 25 06/20/2022 [place] mg/dL 6:35 AM T HOSPITAL CREATININE 2.01 (H) 0.72 - 06/20/2022 [place] 1.25 mg/dL 6:35 AM T HOSPITAL BUN/CREAT RATIO 25 (H) 10 - 20 06/20/2022 [place] 6:35 AM T HOSPITAL eGFR 35 (L) >90 06/20/2022 [place] mL/min/1.7 6:35 AM T HOSPITAL 3m2 Comment: As of [...] 6:12 Unknown Unknown AM CDT AM CDT Arnoldo Gregory [facility] CHEMISTRY Performing Organization Address City/State/ZIP Code Phon e Number [facility] [address] [place] [phone] (ABNORMAL) RED CELL MORPHOLOGY (06/19/2022 5:52 AM CDT)Only the most recent of7 resultswithin the time period is included. [facility] Method Time Signature ELLIPTOCYTES Few 06/19/2022 [place] 7:57 AM CDT HOSPITAL RBC COMMENT Present (A) RBC morphology 06/19/2022 [place] appears 7:57 AM CDT HOSPITAL normal, RBC morphology within normal limits for newborns. Specimen Anatomical Collection Method / Collection Time Recei laura Time (Source) Location / Volume Laterality Blood BLOOD SPECIMEN / Venipuncture / 06/19/2022 5:52 2021 6:44 Unknown Unknown AM CDT AM CDT [facility] HEMATOLOGY Performing Organization Address City/[facility] Phon e Number [facility] [address] [place] [phone] (ABNORMAL) PLATELET ESTIMATE (06/19/2022 5:52 AM CDT)Only the most recent of7 resultswithin the time period is included. [facility] Method Time Signature PLATELET Decreased (A) Adequate, No 06/19/2022 [place] ESTIMATE estimate 7:57 AM T [facility] Specimen Anatomical Collection Method / Collection Time Recei laura Time (Source) Location / Volume Laterality Blood BLOOD SPECIMEN / Venipuncture / 06/19/2022 5:52 2021 6:44 Unknown Unknown AM CDT AM CDT [facility] HEMATOLOGY Performing Organization Address City/[facility] Phon e Number [address] [phone] PROCALCITONIN (06/19/2022 5:52 AM CDT)Only the most recent of2 resultswithin the time period is included. P athologist Signature PROCALCITONIN 0.05 <0.50 ng/ml 06/19/2022 [place] 9:45 AM CDT HOSPITAL Specimen Anatomical Collection Method / Collection Time Recei laura Time (Source) Location / Volume Laterality Blood BLOOD SPECIMEN / Venipuncture / 06/19/2022 5:52 2021 6:44 Unknown Unknown AM CDT AM CDT [facility] - 06/19/2022 9:45 AM C DT Procalcitonin [...] infec tion process has started (usually <6 melinda rs), these values may still be low. PCT levels between 0.5 ng/mL and 2.0 ng/ mL should be interpreted in the context of the specific clinical background and conditions of the individual patient. It is recommended to re-test PCT within 6-24 hours if any concentrations <2.0 ng/mL are obtained. [facility] SEND OUTS Performing Organization Address City/State/ZIP Code Phon e Number [facility] [address] [phone] XR CHEST 1 VIEW PORTABLE (06/18/2022 9:15 AM CDT)Only the most recent of4 resultswithin the time period is included. Anatomical Region Laterality Modality HEART, THORAX, CHEST Digital Radiography Specimen (Source) Anatomical Location Collection Method / Collectio n Time Received Time / Laterality Volume Narrative This result has an attachment that is no t available. [facility] GENERAL IMAGING MAGNESIUM (06/17/2022 6:25 AM CDT)Only the most recent of4 resultswithin the time period is included. athologist Signature MAGNESIUM 2.2 1.6 - 2.6 06/17/2022 [place] mg/dL 7:01 AM [facility] Specimen Anatomical Collection Method / Collection Time Recei laura Time (Source) Location / Volume Laterality Blood BLOOD SPECIMEN / Venipuncture / 06/17/2022 6:25 2021 6:29 Unknown Unknown AM CDT AM CDT Larry GARCÍABS CHEMISTRY Performing Organization Address City/State/ZIP Code Phon e Number [facility] [address] [phone] (ABNORMAL) COMP METABOLIC PANEL (06/17/2022 6:25 AM CDT)Only the most recent of5 resultswithin the time period is included. [facility] Method Time Signature SODIUM 137 135 - 145 06/17/2022 [place] mmol/L 7:01 AM [facility] POTASSIUM 4.7 3.5 - 5.0 06/17/2022 [place] mmol/L 7:01 AM [facility] CHLORIDE 110 98 - 110 06/17/2022 [place] mmol/L 7:01 AM [facility] CO2,TOTAL 20 (L) 21 - 31 06/17/2022 [place] mmol/L 7:01 AM [facility] ANION GAP 7 5 - 18 06/17/2022 [place] 7:01 AM [facility] GLUCOSE 263 (H) 65 - 100 06/17/2022 [place] mg/dL 7:01 AM [facility] CALCIUM 9.0 8.5 - 10.5 06/17/2022 [place] mg/dL 7:01 AM [facility] BUN 53 (H) 8 - 25 06/17/2022 [place] mg/dL 7:01 AM [facility] CREATININE 2.01 (H) 0.72 - 06/17/2022 [place] 1.25 mg/dL 7:01 AM [facility] BUN/CREAT RATIO 26 (H) 10 - 20 06/17/2022 [place] 7:01 AM [facility] ALBUMIN 2.6 (L) 3.2 - 4.6 06/17/2022 [place] g/dL 7:01 AM [facility] PROTEIN,TOTAL 5.3 (L) 6.0 - 8.0 06/17/2022 [place] g/dL 7:01 AM [facility] GLOBULIN 2.7 2.0 - 3.7 06/17/2022 [place] g/dL 7:01 AM [facility] A/G RATIO 1.0 1.0 - 2.0 06/17/2022 [place] 7:01 AM [facility] BILIRUBIN,TOTAL 1.0 0.2 - 1.2 06/17/2022 [place] mg/dL 7:01 AM [facility] ALK PHOSPHATASE 81 50 - 136 06/17/2022 [place] IU/L 7:01 AM [facility] ALT (SGPT) 17 8 - 45 06/17/2022 [place] IU/L 7:01 AM [facility] AST (SGOT) 10 2 - 40 06/17/2022 [place] IU/L 7:01 AM [facility] eGFR 35 (L) >90 06/17/2022 [place] mL/min/1.7 7:01 AM [facility] 3m2 Comment: As of 2021, eGFR [...] Organization Address City/State/ZIP Code Phon e Number [facility] [address] [phone] ECHO COMPLETE WO CONTRAST (06/16/2022 4:09 PM [...] CDT Larry HERNANDEZ CHEMISTRY Performing Organization Address City/[facility] Phon e [address] [phone] (ABNORMAL) Serum Glucose (06/15/2022 11:59 PM CDT)Only [...] Kyle Fontenot DO CHEMISTRY Performing Organization Address City/[facility] e [address] [phone] APTT (06/15/2022 11:59 PM CDT)Only the most recent of2 resultswithin the time period is included. athologist Signature APTT 26 24 - 33 sec 06/16/2022 [place] 12:21 AM CDT HOSPITAL Specimen Anatomical Collection Method / Collection Time Recei laura Time (Source) Location / Volume Laterality Blood BLOOD SPECIMEN / Venipuncture / 06/15/2022 11:59 06/16 Unknown Unknown PM CDT 12:10 AM CDT [facility] - 06/16/2022 12:21 AM CDT Therapeutic Range: 70-95 seconds Larry HERNANDEZ HEMATOLOGY Performing Organization Address City/State/ZIP Code Phon e [facility] [address] [place] [phone] (ABNORMAL) OCCULT BLOOD IFOBT STOOL (06/15/2022 9:14 PM CDT) [facility] gist Method Time Signature STOOL BLOOD Positive (A) Negative 06/15/2022 [facility] 9[facility]24 PM CDT HOSPITAL Specimen Anatomical Collection Method Collection Time Receive d Time (Source) Location / / Volume Laterality Stool STOOL SPECIMEN / Non-Blood / 06/15/2022 9:14 PM 06/15 9:19 Unknown Unknown CDT PM CDT Kyle Fontenot DO LABORATORY Performing Organization Address [facility] [address] [place] [phone] (ABNORMAL) PLATELET COUNT (06/15/2022 4:58 PM CDT) athologist Signature PLATELET COUNT 77 (L) 140 - 440 06/15/2022 [place] thou/cu mm 5:28 PM CDT HOSPITAL MPV 06/15/2022 [place] 5:28 PM CDT [facility] Comment: Unable to be determined Specimen Anatomical Collection Method / Collection Time Recei laura Time (Source) Location / Volume Laterality Blood BLOOD SPECIMEN / Venipuncture / 06/15/2022 4:58 2021 5:03 Unknown Unknown PM CDT PM CDT [facility] - 06/15/2022 5:28 PM C DT Obtain before initiating IV heparin therapy if not done within previous 24 hours. Obtain before initiating IV heparin ther apy if not done within previous 24 hours. Obtain before initiating IV heparin ther apy if not done within previous 24 hours. Larry HERNANDEZ HEMATOLOGY Performing Organization Address City/[facility]/ZIP [facility] [address] [place] [phone] (ABNORMAL) HEMOGLOBIN (06/15/2022 4:58 PM CDT)Only the most recent of2 results within the time period is included. athologist Signature HEMOGLOBIN 12.5 (L) 13.5 - 06/15/2022 [place] 17.5 g/dL 5:08 PM CDT HOSPITAL MCV 83 80 - 100 06/15/2022 [place] f[place] 5:08 PM CDT HOSPITAL Specimen Anatomical Collection Method / Collection Time Recei laura Time (Source) Location / Volume Laterality Blood BLOOD SPECIMEN / Venipuncture / 06/15/2022 4:58 2021 5:03 Unknown Unknown PM CDT PM CDT [facility] - 06/15/2022 5:08 PM C DT Obtain before initiating IV heparin therapy if not done within previous 24 hours. Obtain before initiating IV heparin ther apy if not done within previous 24 hours. Obtain before initiating IV heparin ther apy if not done within previous 24 hours. Larry HERNANDEZ HEMATOLOGY Performing Organization Address [facility]/[address] [phone] HEMATOCRIT (06/15/2022 4:58 PM CDT) athologist Signature HEMATOCRIT 38.8 37.0 - 53.0 06/15/2022 [place] % 5:10 PM CDT HOSPITAL Specimen Anatomical Collection Method / Collection Time Recei laura Time (Source) Location / Volume Laterality Blood BLOOD SPECIMEN / Venipuncture / 06/15/2022 4:58 2021 5:03 Unknown Unknown PM CDT PM CDT [facility] - 06/15/2022 5:10 PM C DT Obtain before initiating IV heparin therapy if not done within previous 24 hours. Obtain before initiating IV heparin ther apy if not done within previous 24 hours. Obtain before initiating IV heparin ther apy if not done within previous 24 hours. Larry HERNANDEZ HEMATOLOGY Performing Organization Address [facility]/[address] [phone] (ABNORMAL) BUN (06/15/2022 4:58 PM CDT) athologist Signature BUN 65 (H) 8 - 25 06/15/2022 [place] mg/dL 5:24 PM CDT HOSPITAL Specimen Anatomical Collection Method / Collection Time Recei laura Time (Source) Location / Volume Laterality Blood BLOOD SPECIMEN / Venipuncture / 06/15/2022 4:58 2021 5:03 Unknown Unknown PM CDT PM CDT Larry HERNANDEZ CHEMISTRY Performing Organization Address City/[facility]/ZIP [facility] e Number [facility] [address] [place] [phone] (ABNORMAL) CREATININE (06/15/2022 4:58 PM CDT)Only the most recent of2 results within the time period is included. athologist Signature CREATININE 2.40 (H) 0.72 - 1.25 06/15/2022 [place] mg/dL 5:23 PM CDT HOSPITAL eGFR 28 (L) >90 06/15/2022 [place] mL/min/1.73 5:23 PM CDT HOSPITAL m2 Comment: [...] CDT Larry HERNANDEZ CHEMISTRY Performing Organization Address City/[facility] Phon e Number [facility] [address] [place] [phone] [place] VENOUS LOWER EXTREMITY BILATERAL (06/15/2022 4:05 [...] of3 resultswithin the time period is included. [facility] gist Method Time Signature D-DIMER,QUANT 1.65 See Comment 06/15/2022 [place] ITATIVE / FEU 3:25 PM CDT HOSPITAL mcg/mL D-DIMER Abnormal (A) 06/15/2022 [place] [facility] 3:25 PM CDT HOSPITAL Specimen Anatomical Collection Method / Collection Time Recei laura Time (Source) Location / Volume Laterality Blood BLOOD SPECIMEN / Venipuncture / 06/15/2022 3:01 2021 3:09 Unknown Unknown PM CDT PM CDT Narrative [facility] - 06/15/2022 3:25 PM C [...] range Larry HERNANDEZ HEMATOLOGY Performing Organization Address City/[facility] Code Phon e Number [facility] [address] [phone] (ABNORMAL) IRON PLUS IRON BINDING CAP (06/15/2022 5:46 AM CDT) Analysis Performed At [facility] logist Time Signature IRON 23 (L) 31 - 144 06/17/2022 [facility] ug/dL 7:13 PM CDT LABORATORY-JACKY TRAL LABORATORY UIBC 154 06/17/2022 [facility] (UN[facility]) 7:13 PM CDT LABORATORY-JACKY TRAL LABORATORY IRON BINDING 177 (L) 245 - 400 06/17/2022 [facility] ug/dL 7:13 PM CDT LABORATORY-JACKY [...] Organization Address City/State/ZIP Code Phon e Number [facility] [address] [place] [phone] LABORATORY-CENTRAL 2000 LABORATORY (ABNORMAL) PTH,INTACT (06/15/2022 5:46 AM CDT) athologist Signature PTH,INTACT 489.0 (H) 14.5 - 06/16/2022 [facility] 87.1 pg/mL 3:01 PM CDT LABORATORY-JACKY TRAL LABORATORY CALCIUM 8.6 8.5 - 10.5 06/16/2022 [facility] mg/dL 3:01 PM CDT LABORATORY-JACKY TRAL LABORATORY Specimen Anatomical Collection Method / Collection Time Recei laura Time (Source) Location / Volume Laterality Blood BLOOD SPECIMEN / Venipuncture / 06/15/2022 5:46 2021 6:01 Unknown Unknown AM CDT AM CDT Kyle Fontenot DO SEND OUTS Performing Organization Address City/[facility] Phon e Number [facility] [employer] [address] [place] [address] LABORATORY-CENTRAL 1999 LABORATORY (ABNORMAL) FERRITIN (06/15/2022 5:46 AM CDT)Only the most recent of2 results within the time period is included. athologist Signature FERRITIN 547.6 (H) 22.0 - 06/17/2022 [facility] 275.0 7:22 PM CDT LABORATORY-CENT ng/mL RAL LABORATORY Specimen Anatomical Collection Method / Collection Time Recei laura Time (Source) Location / Volume Laterality Blood BLOOD SPECIMEN / Venipuncture / 06/15/2022 5:46 2021 6:01 Unknown Unknown AM CDT AM CDT Kyle Fontenot DO CHEMISTRY Performing Organization Address City/[facility] Phon e Number [facility] [address] [place] [address] LABORATORY-CENTRAL 2000 LABORATORY WHITE BLOOD COUNT (06/15/2022 1:45 AM CDT) athologist Signature WHITE BLOOD 9.3 4.5 - 11.0 06/15/2022 [place] COUNT thou/cu mm 1:53 AM CDT HOSPITAL Specimen Anatomical Collection Method Collection Time Receive d Time (Source) Location / / Volume Laterality Blood BLOOD SPECIMEN / Butterfly / 06/15/2022 1:45 AM 06/15 1:49 Unknown Unknown CDT AM CDT Narrative [facility] - 06/15/2022 1:53 AM C DT WBC MUST ALSO BE ORDERED, [id number] Kyle Fontenot DO HEMATOLOGY Performing Organization Address City/State/ZIP Code Phon e Number [facility] [address] [address] (ABNORMAL) DIFFERENTIAL (06/15/2022 1:45 AM CDT) Analysis Performed At Patho logist Time Signature % NEUT 94.6 % 06/15/2022 [place] 1:52 AM CDT HOSPITAL % LYMPH 2.0 % 06/15/2022 [place] 1:52 AM CDT HOSPITAL % MONO 2.8 % 06/15/2022 [place] 1:52 AM CDT HOSPITAL % EOS 0.5 % 06/15/2022 [place] 1:52 AM CDT HOSPITAL % BASO 0.1 % 06/15/2022 [place] 1:52 AM CDT HOSPITAL ABSOLUTE 8.8 (H) 1.7 - 7.0 06/15/2022 [place] NEUTROPHILS thou/cu mm 1:52 AM CDT HOSPITAL ABSOLUTE 0.2 (L) 0.9 - 2.9 06/15/2022 [facility] LYMPHOCYTES thou/cu mm 1:52 AM CDT HOSPITAL ABSOLUTE 0.3 <0.9 06/15/2022 [place] MONOCYTES thou/cu mm 1:52 AM CDT HOSPITAL ABSOLUTE 0.1 <0.5 06/15/2022 [place] EOSINOPHILS thou/cu mm 1:52 AM CDT HOSPITAL ABSOLUTE 0.0 <0.3 06/15/2022 [facility] BASOPHILS thou/cu mm 1:52 AM CDT HOSPITAL Specimen Anatomical Collection Method Collection Time Receive d Time (Source) Location / / Volume Laterality Blood BLOOD SPECIMEN / Butterfly / 06/15/2022 1:45 AM 06/15 1:49 Unknown Unknown CDT AM CDT Narrative [facility] - 06/15/2022 1:52 AM C DT WBC MUST ALSO BE ORDERED, [id number] Kyle Fontenot DO HEMATOLOGY Performing Organization Address City/State/ZIP Code Phon e Number [facility] [address] [phone] (ABNORMAL) Hemoglobin A1C (06/15/2022 1:45 AM CDT)Only the most recent of2 resultswithin the time period is included. Analysis Performed At Patho logist Time Signature HEMOGLOBIN A1C 8.8 (H) <=6.4 % 06/16/2022 [facility] 8:31 PM CDT HOSPITAL (POCT) LABORATORY Specimen Anatomical Collection Method Collection Time Receive d Time (Source) Location / / Volume Laterality Blood BLOOD SPECIMEN / Add On / Unknown 06/15/2022 1:45 AM 1 Unknown CDT 10:06 AM CDT Narrative [facility] LABORATORY - 06/16/2022 8:31 PM CDT [...] Organization Address City/State/ZIP Code Phon e Number [facility] LABORATORY SENDOUT INTERNAL ZIP [place], [place] [phone] [address] [facility] SCAN-CARDIAC STRIP (06/15/2022 12:00 AM [...] of2 resultswithin the time period is included. [facility] Method Time Signature RBC 3-5 (A) 0-2, None 06/14/2022 [place] Seen /HPF 11:14 PM [facility] LABORATORY WBC 6-10 (A) 0-2, 3-5, 06/14/2022 [place] None Seen 11:14 PM [facility] /HPF LABORATORY BACTERIA Few None 06/14/2022 [place] Seen, 11:14 PM [facility] Rare, Few LABORATORY Bacteria/ HPF EPITHELIAL Few None 06/14/2022 [place] CELLS Seen, Few 11:14 PM [facility] Epi/HPF LABORATORY Mucus Present [facility] 11:14 PM [facility] LABORATORY WHITE CELL Present (A) (none) 06/14/2022 [place] 11:14 PM [facility] LABORATORY Specimen Anatomical Collection Method Collection Time Receive d Time (Source) Location / / Volume Laterality Urine URINE SPECIMEN / Non-Blood / 06/14/2022 10:59 022 Unknown Unknown PM CDT 11:01 PM CDT Rosenda Blancas MD URINE Performing Organization Address City/State/ZIP Code Phon e Number [facility] LABORATORY [address] [place] [address] (ABNORMAL) UA W/ SEDIMENT EXAM REFLEXED PER CRITERIA (06/14/2022 10:59 PM CDT) Only the most recent of2 resultswithin the time period is included. [facility] Method Time Signature COLOR Yellow Yellow Color 06/14/2022 [place] 11:07 PM [facility] LABORATORY CLARITY Clear Clear 06/14/2022 [place] Clarity 11:07 [facility] LABORATORY SPECIFIC 1.025 1.010, 06/14/2022 [place] GRAVITY,URINE 1.015, 11:07 PM [facility] 1.020, 1.025 CENTER LABORATORY PH,URINE 6.0 6.0, 7.0, 06/14/2022 [place] 8.0, 5.5, 11:07 PM [facility] 6.5, 7.5, CENTER 8.5 LABORATORY UROBILINOGEN, Normal Normal EU/dl 06/14/2022 [place] QUALITATIVE 11:07 PM [facility] LABORATORY PROTEIN, 100 (A) Negative 06/14/2022 [place] URINE mg/dL 11:07 PM [facility] LABORATORY GLUCOSE, >=1000 (A) Negative 06/14/2022 [place] URINE mg/dL 11:07 PM [facility] LABORATORY KETONES,URINE Negative Negative 06/14/2022 [place] mg/dL 11:07 PM [facility] LABORATORY BILIRUBIN,URI Negative Negative 06/14/2022 [place] 11:07 PM [facility] LABORATORY OCCULT Small (A) Negative 06/[facility]2022 [facility] BLOOD,URINE 11:07 PM [facility] LABORAT[facility] NITRITE Negative Negative 06/14/2022 [place] 11:07 PM [facility] LABORATORY LEUKOCYTE Negative Negative 06/14/2022 [facility] EST[facility] 11:07 PM [facility] LABORATORY Specimen Anatomical Collection Method Collection Time Receive d Time (Source) Location / / Volume Laterality Urine URINE SPECIMEN / Non-Blood / 06/14/2022 10:59 022 Unknown Unknown PM CDT 11:01 PM CDT Rosenda Blancas MD URINE Performing Organization Address [facility] Phon e Number [facility] [address] [place] [address] LACTATE VENOUS (06/14/2022 8:41 PM CDT)Only the most recent of4 resultswithin the time period is included. P athologist Signature LACTATE,VENOUS 1.7 0.5 - 2.0 06/14/2022 [place] mmol/L 8:59 PM [facility] LABORATORY Specimen Anatomical Collection Method / Collection Time Recei laura Time (Source) Location / Volume Laterality Blood BLOOD SPECIMEN / Venipuncture / 06/14/2022 8:41 2021 8:43 Unknown Unknown PM CDT PM CDT Rosenda Blancas MD CHEMISTRY Performing Organization Address [facility] Phon e Number [facility] [address] [place] [address] CT CHEST WO (06/14/2022 7:52 PM CDT) Anatomical Region Laterality Modality CHEST, THORAX, HEART Computed Tomography Specimen (Source) Anatomical Collection Method Collection Time Re ceived Time Location / / Volume Laterality 06/14/2022 8:25 PM CDT Narrative 06/14/2022 8:25 PM CDT For Patients: ??As a result of the Cures Act, medical imaging exams and procedure report s are released immediately into your [facility] medical record. ??You may view this report [...] that all CT scans at this [facility] use dose modulation, iterative reconstruction, and/or weight-based dosing when appropriate to reduce radiation dose to as low as reasonably achievable. Dictated by Estevan Tubsb MD @ 06/14/20 8:25:44 PM (Electronically Signed) Procedure Note Estevan Tubbs MD - 06/14/2022Fo rmatting of this note might be different from the original. For Patients: As a result of the Cures Act, medical imaging exams and procedure reports are released immediately into your electronic medical record. You may view this report before your referring provider. If you have questions, please contact [facility] care provider. Indication: Shortness of breath Technique: [...] that all CT scans at this [facility] use dose modulation, iterative reconstruction, [...] report s are released immediately into your [facility]. ??You may view this report [...] that [facility] use dose modulation, iterative reconstruction, and/or weight-based [...] If you have questions, please contact yo ur health care provider. Indication: Trauma Technique: Volumetric [...] s are released immediately into your [facility] medical record. ??You may view this report [...] that all CT scans at this [facility] use dose modulation, iterative reconstruction, [...] provider. If you have questions, please contact [facility] health care provider. Indication: Trauma Technique: Volumetric [...] that all CT scans at this [facility] use dose modulation, iterative reconstruction, and/or weight-based dosing when appropriate to reduce radiation dose to as low as reasonably achievable. Dictated by Estevan Tubbs MD @ 06/14/20 8:16:47 PM (Electronically Signed) Rosenda Blancas MD CT BLOOD CULTURE (06/14/2022 6:36 PM CDT)Only the most recent of4 resultswithin the time period is included. athologist Signature CULTURE No growth 06/19/2022 [place] to date. 9:55 PM T [facility] LABOR[facility] Specimen Anatomical Collection Method / Collection Time Recei laura Time (Source) Location / Volume Laterality Blood BLOOD SPECIMEN / Venipuncture / 06/14/2022 6:36 2021 6:42 Unknown Unknown PM CDT PM CDT Rosenda Blancas MD MICROBIOLOGY Performing Organization Address City/State/ZIP Code Phon e Number [facility] [address] [place] [address] TROPONIN I (06/14/2022 6:35 PM CDT)Only the most recent of2 resultswithin the time period is included. athologist Signature TROPONIN I 0.019 <0.034 06/14/2022 [place] ng/mL 7:11 PM CDT [facility] LABORATORY Specimen Anatomical Collection Method / Collection Time Recei laura Time (Source) Location / Volume Laterality Blood BLOOD SPECIMEN / Venipuncture / 06/14/2022 6:35 2021 6:42 Unknown Unknown PM CDT PM CDT Rosenda Blancas MD CHEMISTRY Performing Organization Address [facility] Phon e Number [facility] [address] [place] [address] (ABNORMAL) BRAIN NATRIURETIC PEPTIDE (06/14/2022 6:35 PM CDT)Only the most recent of4 resultswithin the time period is included. P athologist Signature BRAIN FILIPPO 116 (H) <100 pg/mL 06/14/2022 [place] PEPTIDE 7:12 PM CDT [facility] LABORATORY Specimen Anatomical Collection Method / Collection Time Recei laura Time (Source) Location / Volume Laterality Blood BLOOD SPECIMEN / Venipuncture / 06/14/2022 6:35 2021 6:42 Unknown Unknown PM CDT PM CDT Rosenda Blancas MD CHEMISTRY Performing Organization Address City/[facility] Phon e Number [facility] [address] [place] [address] (ABNORMAL) COVID 19 (06/14/2022 6:34 PM CDT)Only the most recent of2 results within the time period is included. Patholo gist Method Time Signature COVID 19 Detected (A) Not detected 06/14/2022 [place] [facility] 6:59 PM CDT [facility] LABORATORY Specimen Anatomical Location / Collection Method Collection Siddhartha e Received Time (Source) Laterality / Volume Other SPECIMEN FROM Non-Blood / 06/14/2022 6:34 06/14/2022 6:37 NASOPHARYNGEAL Unknown PM CDT PM CDT STRUCTURE / Unknown Narrative [facility] - 6:59 PM CDT This [...] Rosenda Blancas MD MICROBIOLOGY Performing Organization Address City/[facility]/ZIP Code Phon e Number [facility] [address] [place] [address] COVID 19 COLLECTION (06/14/2022 6:34 PM CDT)Only the most recent of2 results within the time period is included. [facility] Method Time Signature TESTING [facility] 06/14/2022 [place] LABORATORY Laboratory 6:38 PM T [facility] Comment: Specimen submitted to [facility] for testing. Specimen Anatomical Location / Collection Method Collection Siddhartha e Received Time (Source) Laterality / Volume Other SPECIMEN FROM Non-Blood / 06/14/2022 6:34 06/14/2022 6:37 NASOPHARYNGEAL Unknown PM CDT PM CDT STRUCTURE / Unknown Rosenda Blancas MD SEND OUTS Performing Organization Address [facility]/ZIP [facility] Phon e Number [facility] [address] [place] [address] POTASSIUM (06/05/2022 5:47 AM CDT) athologist Signature POTASSIUM 4.0 3.5 - 5.0 06/05/2022 [place] mmol/L 6:36 AM T [facility] Specimen Anatomical Collection Method / Collection Time Recei laura Time (Source) Location / Volume Laterality Blood BLOOD SPECIMEN / Venipuncture / 06/05/2022 5:47 2021 6:05 Unknown Unknown AM CDT AM CDT Víctor Schuler DO CHEMISTRY Performing Organization Address [facility]/ZIP [facility] Phon e Number [facility] [address] [place] [address] (ABNORMAL) BLOOD GAS,VENOUS (06/03/2022 5:47 AM CDT)Only the most recent of2 resultswithin the time period is included. [facility] gist Method Time Signature PH, VENOUS 7.32 7.32 - 7.43 06/03/2022 [place] 6:09 AM [facility] PCO2, VENOUS 41 41 - 51 06/03/2022 [place] mmHg 6:09 AM [facility] PO2, VENOUS 45 (H) 35 - 40 06/03/2022 [place] mmHg 6:09 AM [facility] HCO3,VENOUS 21 (L) 22 - 29 06/03/2022 [place] mmol/L 6:09 AM [facility] LAB[facility] BASE EXCESS, -4.8 (L) -2.0 - 3.0 06/03/2022 [place] VENOUS, POCT 6:09 AM [facility] O2 SATURATION, 83 (H) 70 - 75 % 06/03/2022 [place] VENOUS 6:09 AM [facility] LAB[facility] PATIENT 37.0 Degrees C 06/03/2022 [place] TEMPERATURE 6:09 AM [facility] LAB[facility] Specimen Anatomical Collection Method / Collection Time Recei laura Time (Source) Location / Volume Laterality Blood VENOUS BLOOD Venipuncture / 06/03/2022 5:47 06/03/2022 6:02 SPECIMEN / Unknown Unknown AM CDT AM CDT Víctor Schuler DO CHEMISTRY Performing Organization Address City/State/ZIP Code Phon e Number [facility] [address] [place] [address] US RENAL BILATERAL (06/02/2022 3:34 PM CDT) [...] s are released immediately into your [facility] medical record. ??You may view this report [...] provider. If you have questions, please contact [facility] health care provider. INDICATION: Renal transplant. Urinary [...] (ABNORMAL) URINE CULTURE (06/02/2022 12:45 AM CDT) [facility] Method Time Signature CULTURE RESULT (A) [facility]-JACKY TRAL LABORATORY CULTURE >100,000 CFU/mL 06/04/2022 [facility] Escherichia coli 7:59 AM CDT LABORATORY- JACK[facility] TRAL LABORATORY CULTURE <10,000 CFU/mL 06/04/2022 [facility] Multiple 7:59 AM CDT LABORATORY-JACKY organisms TRAL [...] Organization Address City/State/ZIP Code Phon e Number [facility] [address] [place] [address] LABORATORY-CENTRAL 2000 LABORATORY INFLUENZA A/B/H1N1 PCR (06/02/2022 12:39 AM CDT) [facility] Method Time Signature INFLUENZA A NOT Detected 06/02/2022 [place] PCR 1:23 AM CDT [facility] LABORATORY INFLUENZA B NOT Detected 06/02/2022 [place] PCR 1:23 AM CDT [facility] LAB[facility]ORY Specimen Anatomical Location / Collection Method Collection Siddhartha e Received Time (Source) Laterality / Volume Other SPECIMEN FROM Non-Blood / 06/02/2022 12:39 06/02/2022 NASOPHARYNGEAL Unknown AM CDT 12:52 AM CDT STRUCTURE / Unknown Cayetano Shay MD MICROBIOLOGY Performing Organization Address City/State/ZIP Code Phon e Number [facility] [address] [place] [address] EKG 12 Lead (06/02/2022 12:29 AM CDT) Component Value Ref Range Test Analysis Performed Pathologis t Method Time At [facility] Interpretation Atrial fibrillation BEYON D NOW Nonspecific ST abnormality Abnormal ECG Ventricular Rate 79 BPM BEYOND NOW Atrial Rate 69 BPM BEYOND NOW P-R Interval ms BEYOND NOW QRS Duration 110 ms BEYOND NOW QT 362 ms BEYOND NOW QTc 415 ms BEYOND NOW P [place] degrees BEYOND NOW R [place] 26 degrees BEYOND NOW T [place] 26 degrees BEYOND NOW Specimen Anatomical Collection Method Collection Time Receive d Time (Source) Location / / Volume Laterality 06/02/2022 12:29 06/02/2022 4:21 AM CDT AM CDT Cayetano Shay MD EKG ORD Performing Organization Address City/State/ZIP Code Phon e Number BEYOND NOW [place], [place] (ABNORMAL) C-REACTIVE PROTEIN (06/02/2022 12:25 AM CDT) Analysis Performed At Patho logist Time [facility] C-REACTIVE 1.36 (H) <0.50 06/02/2022 [place] PROTEIN mg/dL 5:38 AM CDT [facility] Specimen Anatomical Collection Method Collection Time Receive d Time (Source) Location / / Volume Laterality Blood BLOOD SPECIMEN / Butterfly / 06/02/2022 12:25 022 Unknown Unknown AM CDT 12:29 AM CDT Giovanni Lara MD CHEMISTRY Performing Organization Address City/State/ZIP Code Phon e Number [facility] [address] [place] [address] LAB TRACKING EVENT (04/07/2022 11:40 AM CDT) Specimen Anatomical Collection Method Collection Time Receive d Time (Source) Location / / Volume Laterality Other (Other) Client Collect / 04/07/2022 11:40 2021 3:34 Unknown AM CDT PM CDT Doctor Unknown LAB BILL ONLY Performing Organization Address City/State/ZIP Code Phon e Number [email or web address] [address] [place] [address] LABORATORY-CENTRAL 2000 LABORATORY PATH TISSUE EXAM (04/07/2022 11:40 AM CDT) Component Value Ref Test Analysis Performed At Patholo gist Range Method Time Signature Case Report Pathology Report ?Case: [id number] ? 04/12/2022 [email or web address] Authorizing Provider: ??Unkn own, Doctor ?Collected: ? 04/07/2022 1140 ? 11:31 AM LAB ORATORY-CE Ordering Location: ? L CENTRAL LAB ?Received: ?04/08/2022 1609 ? CDT N TRAL Pathologist: ? Ricky Lisa ? LABORATORY ? MD Jessie ? Specimen: ?Right Clavicl e ? Final A) SKIN, RIGHT CLAVICLE, WOUND, BIOPSY: [facility] Electronically Diagnosis 1. Ulceration with serum crust and underlying granulat ion tissue 11:31 AM LABORATORY-CE signed by 2. Negative for malignancy CDT NTR Ricky Roberts LABORATORY Jose mcgill MD on 04/12/20 22 at 11:31 AM Comment The presence 04/12/2022 [facility] of blue and 11:31 AM LABORATORY-CE green ink are CDT NTRAL confirmed on LABORATORY tissue sections. Clinical Mr. Guthrie is 04/12/2022 [email or web address] Information a 72 y.o. with 11:31 AM LABORATORY-CE a right CDT NTRAL clavicle LABORATORY wound, post excision site. Gross A) Received in formalin, lab eled with the patient's name and right clavicle, are two skin punch biopsies. The first is a 0.3 x 0.3 x 0.4 cm skin punch biopsy. The skin surface displays a 0.2 x 0.1 cm 04/12/2022 [email or web address] Description depressed brown possible les ion. The [...] LABORATORY LH 04/08/2022 Microscopic The final 04/12/2022 [email or web address] Description diagnosis is 11:31 AM LABORATORY-CE based on CDT NTRAL microscopic LABORATORY examination of appropriate sections of all specimens. Additional 04/12/2022 [email or web address] Information Interpreted at [facility], Central Laboratory - [address], [place] [address] 11:31 AM LABORATORY-CE CDT NTRAL LABORATORY Specimen Anatomical Collection Method Collection Time Receive d Time (Source) Location / / Volume Laterality Other (Right 04/07/2022 11:40 04/08/2022 4:09 Clavicle) AM CDT PM CDT Doctor Unknown PATHOLOGY/CYTOLOGY Performing Organization Address City/State/ZIP Code Phon e Number [email or web address] [address] [place] [address] LABORATORY-CENTRAL 2000 LABORATORY from Last 3 Months Additional Health Concerns Infection Onset Date Last Indicated MRSA ClearanceComment: If >12 months sin ce positive culture, precautions can be discontinued if patient has no MRSA risk factors. 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 right check exclusions for contact precaution dis continuation (if > 12 months since positive culture): resides in acute/shelter care, receiving hemodialysis, has chronic open wounds/skin [...] Group Dates MEDICARE PART MEDICARE PART A [id number] 2011-Prese A TTN: CLAIMS A - HB USE HB ONLY nt [address] [place] [address] MEDICARE PART MEDICARE PART B [id number] 2012-Pres A TTN: CLAIMS B - HB USE HB ONLY [place] [address] [place] [address] MEDICARE - PB MEDICARE PB [id number] 2014-Prese ATTN: CLAIMS USE ONLY ONLY nt [address] [place] [address] BLUE CROSS BLUE CROSS OF [id number] 2016-Prese [address] [place] [address] BLUE CROSS BLUE CROSS OF [id number] 2013-Prese [address] [place] [address] MEDICARE PPS HC MEDICARE PPS [id number] 2011-Prese [address] [place] [address] Diego Guthrie Personal/Family Self [address] (Home) [facility] [place] [place] [address] Diego Guthrie Personal/Family Self [address] (Home) [facility] [place] [address] Diego Guthrie Fpc Self 1950 [address] (Home) [place] [address] Advance Directives Documents on File Type Date Recorded Patient Cupola Charger Insulation Explanati on POLST 09/26/2020 Latest Code Status [...] PM Code Status Discussion: Discussed Care Teams Corrections Lieutenant Relationship Specialty Start Date End Date Momo Forbes MD PCP - General Family Practice 01/22/211999 [place] [address]
--- OUTSIDE RECORDS SUMMARY | 2022-07-07 10:42 | XMS_ITS | Encounter Summary ---
:1950 Author Organization [place] Address [facility] [place] [address] Care Team Providers Name Role Phone Momo Forbes Primary Care Provider Mariano, Joseph Durham MD Unavailable Reason for Visit Reason Onset Date Comments Voicemail 04/13/2022 Encounter Details Date Type Department Care Team Description 04/13/2022 Telephone [facility] Transplant Obdulia Peacock, RN Voicemail Clinic [address] [place] [address] [phone] Social History Tobacco Use Types Packs/Day [...] to patient via mail Gretta Peacock RN Nutrition Assistant [phone] Telephone Encounter - Adriana Raza - 04/13/2022 2:31 PM CDT Voicemail Date/Time: 04/13/22 2:27 pm Reason for call: Diego received a letter stating we have been trying ot reach him so he was responding documented in this encounter Plan of Treatment Not on filedocumented as of this encounter Visit Diagnoses Not on filedocumented in this encounter Care Teams Roof Designer Relationship Specialty Start Date End Date Momo Forbes PCP - General Family Practice 01/02/14 [facility] [address] [place] [address] Joseph Quintana, Assigned Nephrology 03/29/21 MD Provider 7 [facility] 353 [facility] [address] [place] [address] documented as of this encounter
--- OUTSIDE RECORDS SUMMARY | 2022-07-07 10:42 | XMS_ITS | Encounter Summary ---
:1950 Author Organization [place] Address [address] [facility] [place] [address] Care Team Providers Name Role Phone Momo Forbes Primary Care Provider Joseph Quintana MD Unavailable Encounter Details Date Type Department Care Team Description 06/02/2022 Documentation Only [facility] Dash Gómez am, MD Nephrology Clinic [address] [place] [address] [phone] Social History Tobacco Use Types Packs/Day Years [...] Satish Gómez MD, [place] Transplant Nephrology Pager: [phone] documented in this encounter Plan of Treatment Not on filedocumented as of this encounter Visit Diagnoses Not on filedocumented in this encounter Care Teams Liquid Compounder Relationship Specialty Start Date End Date Momo Forbes PCP - General Family Practice 01/02/14 [facility] [address] [place] [address] Joseph Quintana, Assigned Nephrology 03/29/21 MD Provider 717 [facility] 353 [facility] [address] [place] [address] documented as of this encounter
--- OUTSIDE RECORDS SUMMARY | 2022-07-07 10:42 | XMS_ITS | Encounter Summary ---
:1950 Author Organization [place] Address [address] [place] [address] Care Team Providers Name Role Phone Momo Forbes Primary Care Provider Joseph Quintana MD Unavailable Encounter Details Date Type Department Care Team Description 01/19/2022 External Order [facility] Outside, Provide r Results Molecular Diagnostic s [address] [place] [address] Social History Tobacco Use Types Packs/Day Years [...] External Culture Results (01/19/2022 12:11 PM CDT) [facility] Method Time Signature Scan Culture See Scanned NON-INTERFACE Results Report D (ONBASE (External) SCANS) Specimen (Source) Anatomical Collection Method Collection Time Re ceived Time Location / / Volume Laterality 01/19/2022 12:11 PM CDT Narrative [facility] - 01/25/2022 2:48 PM CDT Verified by Priscilla Mcdaniel on 01/25/2022. Provider Outside LABORATORY Performing Organization Address City/[facility]/ZIP Code Phon e Number [facility] [...] LAB - URINE ORDERABLES Performing Organization Address City/[facility] Phon e Number [facility] NON-INTERFACED (ONBASE [...] UA with Microscopic (01/19/2022 11:16 AM CDT) [facility] gist Method Time Signature Color Urine YEL YELLOW NON-INTERFAC (External) ED (ONBASE SCANS) Appearance Urine CLEAR CLEAR NON-INTERFAC (External) ED (ONBASE SCANS) Glucose Urine 2+ NEGATIVE NON-INTERFAC (External) ED (ONBASE SCANS) Bilirubin Urine NEG NEGATIVE NON-INTERFAC (External) ED (ONBASE SCANS) Ketones Urine NEG NEGATIVE NON-INTERFAC (External) ED (ONBASE SCANS) Specific [place] 1.010 1.005 - NON-INTERFAC Urine (External) 1.030 [...] on filedocumented in this encounter Care Teams Weight Control Engineer Relationship Specialty Start Date End Date Momo Forbes PCP - General Family Practice 01/02/14 [facility] [address] [place] [address] Joseph Quintana, Assigned Nephrology 03/29/[address] [place] [address] 1932 [place], [place] [id number] documented as of this encounter
--- OUTSIDE RECORDS SUMMARY | 2022-07-07 10:42 | XMS_ITS | Encounter Summary ---
:1950 Author Organization [place] Address [address] [place] [address] Care Team Providers Name Role Phone Momo Forbes Primary Care Provider Joseph Quintana MD Unavailable Encounter Details Date Type Department Care Team Description 04/29/2022 External Order [facility] Outside, Provide r Results Molecular Diagnostic s [address] [place] [phone] Social History Tobacco Use Types Packs/Day Years [...] URINE ORDERABLES Performing Organization Address City/[facility] Code Phon e Number [facility] [...] filedocumented in this encounter Care Teams Grey Stock Recorder Relationship Specialty Start Date End Date Momo Forbes PCP - General Family Practice 01/02/14 [facility] [address] [place] [address] Joseph Quintana, Assigned Nephrology 03/29/21 Provider 717 [facility] 353 [facility] [address] [place] [address] documented as of this encounter
--- OUTSIDE RECORDS SUMMARY | 2022-07-07 10:42 | XMS_ITS | Encounter Summary ---
:1950 Author Organization [place] Address [address] [place] [address] Care Team Providers Name Role Phone Momo Forbes Primary Care Provider Joseph Quintana MD Unavailable Encounter Details Date Type Department Care Team Description 06/05/[address] [facility] Evelyn Schuster RN Transplant Clinic [address] [phone] [facility] [phone] [place] [address] (Wo rk) Social History Tobacco [...] filedocumented in this encounter Care Teams Hand Glove Cleaner Relationship Specialty Start Date End Date Momo Forbes PCP - General Family Practice 01/02/14 [facility] [address] [place] [address] Joseph Quintana, Assigned Nephrology 03/29/21 MD Provider 7 [facility] 353 [facility] 1932 [place], [place] [id number] documented as of this encounter
--- OUTSIDE RECORDS SUMMARY | 2022-07-07 10:42 | XMS_ITS | Encounter Summary ---
:1950 Author Organization [place] Address [address] [place] [address] Care Team Providers Name Role Phone Momo Forbes Primary Care Provider Joseph Quintana MD Unavailable Reason for Visit Reason Onset Date Comments Transplant 01/21/2022 Hyperglycemia, eleva moni [facility] Encounter Details Date Type Department Care Team Description 01/21/2022 Telephone [facility] Gretta Peacock RN Trans plant Transplant Clinic (Hyperglycemia, elevated [address] [facility]) [place] [address] Social History Tobacco Use [...] PM CDT ISSUE: trend up in [facility], hyperglycemia OUTCOME: phone call attempted X3. Will send letter via mail. Gretta Peacock automotive software engineerResort Housekeeper [phone] documented in this encounter Plan of Treatment Not on filedocumented as of this encounter Visit Diagnoses Not on filedocumented in this encounter Care Teams Press Smith Helper Relationship Specialty Start Date End Date Momo Forbes PCP - General Family Practice 01/02/14 [facility] [address] [place] [address] Joseph Quintana, Assigned Nephrology 03/29/21 MD Provider [address] [place] [address] 1932 [place] [address] documented as of this encounter
--- OUTSIDE RECORDS SUMMARY | 2022-07-07 10:42 | XMS_ITS | Clinical Summary ---
:1950 Author Organization [place] Address [facility] [place] [address] Care Team Providers Name Role Phone Momo [...] Problem list name updated by automated p [employer]. Provider to review Gout 12/02/2011 Peripheral neuropathy 12/02/2011 Diabetic retinopathy 12/02/2011 HTN, kidney transplant related 12/02/2011 Overview: Problem list name updated by automated p [employer]. Provider to review DM (diabetes mellitus), type 2 12/02/2011 History of tobacco use 12/02/2011 Thrombocytopenia 12/02/2011 Malaise and fatigue 12/02/2011 Overview: Problem list name updated by automated p [employer]. Provider to review Depression Resolved Problems [...] Solid Organ Gretta Peacock, Transplant (C ovid scrubbing machine operator reassessment/) 06/07/2022 Telephone Solid Organ Gretta Peacock, Transplant (C ovid scrubbing machine operator reassessment ) 06/05/2022 Telephone Solid Organ Evelyn Schuster, scrubbing machine operator 06/02/2022 Documentation Only NephSatish Reyes MD 05/06/2022 Telephone Solid Organ Gretta Peacock, Left Message To scrubbing machine operator Call (Left VM 05/06/2022 at 11:55PM., Wante d to discuss lab results) 05/04/2022 Telephone Solid Organ Gretta Peacock Transplant La b scrubbing machine operator (Elevated serum creatinine and proteinuria) 05/02/2022 Telephone Solid Organ Gretta Peacock, Erroneous scrubbing machine operator encounter-disre sebastian 04/29/2022 External Order Lab Outside, Results Provider 04/13/2022 Telephone Solid Organ Gretta Peacock, Voicemail scrubbing machine operator from Last 3 Months Immunizations Name Administration [...] Comments Blood Pressure 169/76 10/09/2019 2:35 PM SUPERVISOR HAND SILVERING Pulse 67 10/09/2019 2:35 PM SUPERVISOR HAND SILVERING Temperature 36.5 ??C (97.7 ??F) 10/17/2018 1:54 PM SUPERVISOR HAND SILVERING Respiratory Rate 18 10/25/2016 4:39 PM SUPERVISOR HAND SILVERING Oxygen Saturation 95% 10/09/2019 2:35 PM SUPERVISOR HAND SILVERING Inhaled Oxygen Concentration - - Weight 132.5 kg (292 lb 1.6 oz) 10/09/2019 2:35 PM SUPERVISOR HAND SILVERING Height 182.9 cm (6') 10/10/2017 2:25 PM SUPERVISOR HAND SILVERING Body Mass Index 39.62 10/10/2017 2:25 PM SUPERVISOR HAND SILVERING Plan of Treatment Health Maintenance Due Date [...] this topic Medical Devices Explanted Type Area Armorer Technician Device Shelf Model / Identifier Expiration Serial / Date Lot Stent Ureteral Childress Renal Transplant [id number] Right: [employer] 11/19/2016 [id number] / Implanted: Qty: 1 on 02/02/2014 by Migel Viveros MD at [facility] [employer] / Explanted: Qty: 1 on 04/01/2014 by Celina Helton MD at [facility] [id number] Procedures Procedure Name Priority Date/Time Associated Comments [...] Platelets & Differential (04/29/2022 11:40 AM CDT) [facility] gist Method Time Signature WBC Count [...] City/[facility]/ZIP Code Phon e Number [facility] [...] Address T ype Group Dates MEDICARE MEDICARE [id number] 2011-Prese [phone] ATTN [place] Medicare nt 40 [address] [facility] [place] [place] [address] BCBS BCBS OF [place] [id number] 2016-Prese [phone] [address] [address] Indemnity nt 00 [place] [address] Diego Guthrie Personal/Family Self [address] [place] (Home) [place] [address] Advance Directives For more information, please contact: [phone] Latest Code Status on File Code Status Date Activated Date Inactivated Comments Full Code 04/01/2014 9:03 AM Code Status History Code Status Date Activated Date Inactivated Comments Full Code 02/08/2014 7:12 AM 04/01/2014 9:03 AM Full Code 02/03/2014 12:56 AM 02/08/2014 7:12 AM Care Teams Umbrella Supervisor Relationship Specialty Start Date End Date Momo Forbes PCP - General Family Practice 01/02/14 [facility] 1999 [place] [address] Joseph Quintana, Assigned Nephrology 03/29/21 MD Provider [address] [place] [address] [address] [place], [place] [id number]
--- OUTSIDE RECORDS SUMMARY | 2022-07-07 10:42 | XMS_ITS | Encounter Summary ---
:1950 Author Organization [place] Address [address] [place] [address] Care Team Providers Name Role Phone Momo Forbes Primary Care Provider Joseph Quintana MD Unavailable Reason for Visit Reason Onset Date Comments Transplant Lab 05/04/2022 Elevated serum creat inine and proteinuria Encounter Details Date Type Department Care Team Description 05/04/2022 Telephone [facility] Gretta Peacock RN Trans plant Lab (Elevated Transplant Clinic serum creatinine and [address] proteinuria) [place] [address] Social History Tobacco Use Types [...] General Family Practice 01/02/14 [facility] [address] [place] [address] Joseph Quintana, Assigned Nephrology 03/29/21 Provider [address] [place] [address] documented as of this encounter
--- OUTSIDE RECORDS SUMMARY | 2022-07-07 10:42 | XMS_ITS | Encounter Summary ---
:1950 Author Organization [place] Address [address] [place] [address] Care Team Providers Name Role Phone Momo Forbes Primary Care Provider Joseph Quintana MD Unavailable Reason for Visit Reason Onset Date Comments Call Back 06/18/2022 Medications Encounter Details Date Type Department Care Team Description 06/18/2022 Telephone [facility] Satish Gómez MD Call Back (Medications) Nephrology Clinic [address] [place] [address] [phone] Social History Tobacco Use Types Packs/Day Years Used Date Smoking Tobacco: Former Cigars Quit : 08/22/2006 Smokeless Tobacco: Never Alcohol Use Standard Drinks/Week Comments Yes 0 (1 standard drink = 0.6 oz pure alcoho l) occasional drink. Sex Assigned at Date Recorded Not on file documented as of this encounter Miscellaneous Notes Telephone Encounter - Amadna Nguyen RN - 06/22/2022 12:29 PM CDT [...] 06/21/2022 2:28 PM CDT General Route to DIRECTOR BUSINESS SYSTEMS Reason for call: Diego was returning a [...] Please have Dr. Gómez reach out to [facility] [phone] - [facility]. Thanks Action Taken: Message routed to: [facility] Neph Travel Screening: Not Applicable documented in this encounter Plan of Treatment Not on filedocumented as of this encounter Visit Diagnoses Not on filedocumented in this encounter Care Teams Nutritionalist Relationship Specialty Start Date End Date Momo Forbes PCP - General Family Practice 01/02/14 [facility] [address] [place] [address] Joseph Quintana, Assigned Nephrology 03/29/21 MD Provider 717 [facility] 353 [facility] 1932 [place], [place] [address] documented as of this encounter
--- OUTSIDE RECORDS SUMMARY | 2022-07-07 10:42 | XMS_ITS | Encounter Summary ---
:1950 Author Organization [place] Address [address] [place] [address] Care Team Providers Name Role Phone Momo Forbes Primary Care Provider Joseph Quintana MD Unavailable Reason for Visit Reason Onset Date Comments Transplant 06/17/2022 Covid reassessment Encounter Details Date Type Department Care Team Description 06/17/2022 Telephone [facility] Gretta Peacock RN Trans plant [facility] [address] [place] [phone] Social History Tobacco Use Types Packs/Day [...] Covid + 06/01/2022 with inpatient stay at [facility] where MMF was held. Resumed MMF [...] 750mg bid OUTCOME: Patient was readmitted to [facility] with complications of Covid 19 per patient. Difficult to hear patient as he has bad cell phone service at hospital. Spoke with staff member on inpatient unit. Patient is private information unable to be given to RNCC. Provided provider to providernumber to staff member to pass along to RN or inpatient provider. V/U of calling [facility] transplant nephrology to discuss IS. Gretta Peacock library clerk talking booksChemical Process Operator [phone] documented in this encounter Plan of Treatment Not on filedocumented as of this encounter Visit Diagnoses Not on filedocumented in this encounter Care Teams Seed Laboratory Assistant Relationship Specialty Start Date End Date Momo Forbes PCP - General Family Practice 01/02/14 [facility] [address] [place] [address] Joseph Quintana, Assigned Nephrology 03/29/21 MD Provider [address] [place] [address] [address] [place] [address] documented as of this encounter
--- OUTSIDE RECORDS SUMMARY | 2022-07-07 10:43 | XMS_ITS | Encounter Summary ---
:1950 Author Organization [place] Address [address] [place] [address] Care Team Providers Name Role Phone Momo Forbes Primary Care Provider Reason for Visit Reason Onset Date Comments Transplant 10/23/2020 Encounter Details Date Type Department Care Team Description 10/23/2020 Telephone [facility] Barbie Ugalde nsplant Transplant Clinic BOGDAN Nam [address] [place] [phone] Social History Tobacco Use Types [...] Barbie Ugalde RN - 10/23/2020 1:10 PM UNIT AIDE Latrell reports his labs were done yesterday morning at [facility]. Last night ended upat ER at [facility]. Hospital printed out copy of labs and he is worried about creatinine. Latrell states he had R foot infection that needed to be cleaned out; Had surgery last day of August onfoot at [place]. Was hospitalized 10 days before going to longterm for recovery. Last night his blood sugar was dropping low into 70s and longterm staff thought his BP was jumping around to much. This morning is BP 130/76, but last night 170s. Explained to Latrell that it has been a year since lastnephrology appointment and he needs to be seen for transplant follow up. He agreed but did not want to schedule at this time but will call back to schedule. Call placed to [facility] lab to fax results. Per Lab need to speak with information management department to release records or go thru [facility] to have orders faxed. Call then [...] and repeating post-transplant labs in 1-2 weeks. AIDE Telephone Encounter - Tasia Mack - 10/23/2020 10:03 AM CST Patient Call: Transplant Lab/Orders Route to MEMBER SERVICES COORDINATOR Post Transplant Days: 2455 When patient is less than 60 days post-transplant, route high priority Reason for Call: Discuss lab results; which results? creatine level Callback needed? Yes Return Call Needed Same as documented in contacts section When to return call?: Greater than one day: Route standard priority AIDE documented in this encounter Plan of Treatment Not on filedocumented as of this encounter Visit Diagnoses Not on filedocumented in this encounter Care Teams Certified Lactation Educator Relationship Specialty Start Date End Date Momo Forbes PCP - General Family Practice 01/02/14 [facility] [address] [place] [address] documented as of this encounter
--- OUTSIDE RECORDS SUMMARY | 2022-07-07 10:43 | XMS_ITS | Encounter Summary ---
:1950 Author Organization [place] Address [address] [place] [address] Care Team Providers Name Role Phone Momo Forbes Primary Care Provider Mariano, Joseph Durham MD Unavailable Reason for Visit Reason Onset Date Comments Transplant 11/24/2021 Encounter Details Date Type Department Care Team Description 11/24/2021 Telephone [facility] Transplant Obdulia Peacock, chain builder loom control Clinic [address] [place] [address] [phone] Social History Tobacco Use Types Packs/Day [...] had labs drawn ~one week ago at [facility], however results have not beenfaxed to [facility]. PLAN: call lab to have results faxed OUTCOME: New labs orders sent. Most recent bmp and cbc requested from october 2021. Tac and UPC due. Left detailed message with instructions to obtain tacrolimus trough level and UPC at earliest convenience. Asked for CB to confirm understanding. Gretta Peacock chain builder loom controlAdult School Teacher [phone] Telephone Encounter - Azael Rodriguez - 11/24/2021 3:32 PM CDT Patient called to touch base with the RNCC regarding some questions. documented in this encounter Plan of Treatment Not on filedocumented as of this encounter Visit Diagnoses Not on filedocumented in this encounter Care Teams Automotive Technician Relationship Specialty Start Date End Date Momo Forbes PCP - General Family Practice 01/02/14 [facility] [address] [place] [address] Joseph Quintana, Assigned Nephrology 03/29/21 MD Provider [address] [place] [address] [address] [place] [address] documented as of this encounter
--- OUTSIDE RECORDS SUMMARY | 2022-07-07 10:43 | XMS_ITS | Encounter Summary ---
:1950 Author Organization [place] Address [facility] [place] [address] Care Team Providers Name Role Phone Forbes, Ton Primary Care Provider Reason for Visit Reason Onset Date Comments Transplant Immunosuppression Management 08/11/2020 Encounter Details Date Type Department Care Team Description [facility] Trans[facility] BOGDAN Nam Immunosuppression [address] [place] [address] [place] [address] Social History Tobacco Use Types [...] Barbie Ugalde RN - 08/11/2020 4:16 PM CLOTH DRIER ISSUE: Tacrolimus IR level 11.7 on 08/08/20, [...] Organ Transplant, Post Kidney and Pancreas Transplant Computer Systems Auditor [phone] OUTCOME: Spoke with patient, they confirm accurate trough level and current dose 2 mg BID. Patient confirmed dose change to 1.5 mg BID and to repeat labs in 1 weeks. Orders sent to preferred pharmacy for dose change and lab for repeat labs. Patient voiced understanding of plan. H DRIER documented in this encounter Plan of Treatment Not on filedocumented as of this encounter Visit Diagnoses Diagnosis Kidney transplanted - Primary Kidney replaced by transplant -donor kidney transplant recipie nt Kidney replaced by transplant documented in this encounter Care Teams Prover Relationship Specialty Start Date End Date Momo Forbes PCP - General Family Practice 01/02/14 [facility] [address] [place] [address] documented as of this encounter
--- OUTSIDE RECORDS SUMMARY | 2022-07-07 10:43 | XMS_ITS | Encounter Summary ---
:1950 Author Organization [place] Address [address] [place] [address] Care Team Providers Name Role Phone ForbesMomo Primary Care Provider Reason for Visit Reason Onset Date Comments Transplant 07/11/2020 Encounter Details Date Type Department Care Team Description 07/11/2020 Telephone [facility]bie Ugalde [facility] BOGDAN Nam [address] [place], [place] [phone] Social History Tobacco Use Types Packs/Day Years Used Date Smoking Tobacco: Former Cigars Quit : 08/22/2006 Smokeless Tobacco: Never Alcohol Use Standard Drinks/Week Comments Yes 0 (1 standard drink = 0.6 oz pure alcoho l) occasional drink. Sex Assigned at Date Recorded Not on file documented as of this encounter Miscellaneous Notes Telephone Encounter - Barbie Ugalde RN - 07/11/2020 2:11 PM DAIRY HELPER ISSUE: Potassium 5.2 on 07/08/20. PLAN: Assess for high dietary intake of potassium. Encouraged Diego to reduce the amount of bananas and potatoes he admitted to eating high amounts of. OUTCOME: Please have pt repeat BMP in 1 week. Orders sent Y HELPER Telephone Encounter - Barbie Ugalde RN - 07/11/2020 1:41 PM DAIRY HELPER ISSUE: Tacrolimus IR level 2.2 on 07/08/20 [...] for repeatlabs. Patient voiced understanding of plan. Y HELPER documented in this encounter Plan of Treatment Not on filedocumented as of this encounter Visit Diagnoses Diagnosis -donor kidney transplant recipie nt Kidney replaced by transplant Kidney transplanted Kidney replaced by transplant documented in this encounter Care Teams Quality Management Nurse Relationship Specialty Start Date End Date Momo Forbes PCP - General Family Practice 01/02/14 [place] [address] documented as of this encounter
--- OUTSIDE RECORDS SUMMARY | 2022-07-07 10:43 | XMS_ITS | Encounter Summary ---
:1950 Author Organization [place] Address [address] [place] [address] Care Team Providers Name Role Phone Momo Forbes Primary Care Provider Reason for Visit Reason Onset Date Comments Transplant 01/07/2021 Encounter Details Date Type Department Care Team Description 01/07/2021 Telephone [facility] Barbie Ugalde nsplanlynda Transplant Clinic BOGDAN Nam [address] [place] [address] [phone] Social History Tobacco Use Types Packs/Day [...] CDT Patient Call: Transplant Lab/Orders Route to TELEGRAPH SERVICE RATER Post Transplant Days: 2530 When patient is less than 60 days post-transplant, route high priority Reason for Call: Annual lab reorder fax labs to [facility] lab at [phone] Labs drawn Waiting fororders Callback needed? No documented in this encounter Plan of Treatment Not on filedocumented as of this encounter Visit Diagnoses Not on filedocumented in this encounter Care Teams Manufacturing Operations Manager Relationship Specialty Start Date End Date Momo Forbes PCP - General Family Practice 01/02/14 [facility] [address] [place] [address] documented as of this encounter
--- OUTSIDE RECORDS SUMMARY | 2022-07-07 10:43 | XMS_ITS | Encounter Summary ---
:1950 Author Organization [place] Address [address] [facility] [place] [address] Care Team Providers Name Role Phone Momo Forbes Primary Care Provider Joseph Quintana MD Unavailable Encounter Details Date Type Department Care Team Description 07/08/2020 External Order [facility] Outside, Provider Results Transplant Clinic [address] [place] [address] Social History Tobacco Use Types [...] 9:23 AM R esults for this DIFFERENTIAL FORMULATION TECHNICIAN procedure are i n the results section. TACROLIMUS BY TANDEM Routine 07/08/2020 9:23 AM R esults for this MASS SPECTROMETRY FORMULATION TECHNICIAN procedure are in the results section. PROTEIN RANDOM URINE Routine 07/08/2020 9:23 AM R esults for this FORMULATION TECHNICIAN procedure are i n the results section. HEMOGLOBIN A1C Routine 07/08/2020 9:23 AM Results for this FORMULATION TECHNICIAN procedure are i n the results section. HEMOGLOBIN A1C Routine 07/08/2020 9:23 AM Results for this FORMULATION TECHNICIAN procedure are i n the results section. BASIC METABOLIC PANEL Routine 07/08/2020 9:23 AM Results for this FORMULATION TECHNICIAN procedure are i n the results section. documented in this encounter Results (ABNORMAL) Protein random urine with Creat Ratio (07/08/2020 9:23 AM FORMULATION TECHNICIAN) Analysis Performed At [facility] Time Signature Protein Random 73 mg/dL LABDE SCAN Urine (External) Creatinine 65 mg/dL LABDE SCAN Urine mg/dL (External) Protein Total 1.12 (H) 0 - 0.19 LABDE SCAN Ur per Cr (External) Specimen (Source) Anatomical Collection Method Collection Time Re ceived Time Location / / Volume Laterality Urine specimen 07/08/2020 9:23 AM (specimen) FORMULATION TECHNICIAN Narrative BREEZE PFT - 07/11/2020 11:13 AM FORMULATION TECHNICIAN Verified by Praful Huff on 2019. Patient Reported LAB - URINE ORDERABLES Performing Organization Address City/State/ZIP Code Phon e Number [facility] PFT LABDE SCAN (ABNORMAL) Hemoglobin A1c (07/08/2020 9:23 AM FORMULATION TECHNICIAN) Analysis Performed At [facility] Time Signature Hemoglobin A1C 12.3 (H) 0 - 5.6 % LABDE SCAN (External) Specimen (Source) Anatomical Collection Method Collection Time Re ceived Time Location / / Volume Laterality Blood specimen 07/08/2020 9:23 AM (specimen) FORMULATION TECHNICIAN Narrative BREEZE PFT - 07/11/2020 11:13 AM FORMULATION TECHNICIAN Verified by Praful Huff on 2019. Patient Reported LAB - BLOOD ORDERABLES Performing Organization Address City/[facility]/ZIP Code Phon e Number BREEZE PFT LABDE SCAN Tacrolimus level (07/08/2020 9:23 AM FORMULATION TECHNICIAN) P athologist Signature Tacrolimus(FK- 2.2 See scanned LABDE SCAN 506) report ng/mL (External) Specimen (Source) Anatomical Collection Method Collection Time Re ceived Time Location / / Volume Laterality Blood specimen 07/08/2020 9:23 AM (specimen) FORMULATION TECHNICIAN Narrative BREEZE PFT - 07/11/2020 11:13 AM FORMULATION TECHNICIAN Verified by Praful Huff on 2019. Patient Reported LAB - BLOOD ORDERABLES Performing Organization Address City/State/ZIP Code Phon e Number [facility]REEZE PFT LABDE SCAN (ABNORMAL) Hemoglobin A1c (07/08/2020 9:23 AM FORMULATION TECHNICIAN) Analysis Performed At [facility] logist Time Signature Hemoglobin A1C 12.3 (H) 0 - 5.6 % LABDE SCAN (External) Specimen (Source) Anatomical Collection Method Collection Time Re ceived Time Location / / Volume Laterality Blood specimen 07/08/2020 9:23 AM (specimen) FORMULATION TECHNICIAN Narrative MARLENEE PFT - 07/09/2020 11:03 AM FORMULATION TECHNICIAN Verified by Andrade Barajas on 07/09/2020. Patient Reported LAB - BLOOD ORDERABLES Performing Organization Address City/State/ZIP Code Phon e Number BREEZE PFT LABDE SCAN (ABNORMAL) Basic metabolic panel (07/08/2020 9:23 AM FORMULATION TECHNICIAN) Analysis Performed At [facility] logist Time Signature Calcium 10.1 8.4 [...] Laterality Blood specimen 07/08/2020 9:23 AM (specimen) FORMULATION TECHNICIAN Narrative JESSICA PFT - 07/09/2020 11:02 AM FORMULATION TECHNICIAN Verified by Andrade Barajas on 07/09/2020. Patient Reported LAB - BLOOD ORDERABLES Performing Organization Address City/State/ZIP Code Phon e Number BREEZE PFT LABDE SCAN (ABNORMAL) CBC with platelets differential (07/08/2020 9:23 AM FORMULATION TECHNICIAN) [facility] gist Method Time [...] Laterality Blood specimen 07/08/2020 9:23 AM (specimen) FORMULATION TECHNICIAN Narrative JESSICA PFT - 07/09/2020 10:52 AM FORMULATION TECHNICIAN Verified by Praful Huff on 2019. Patient Reported LAB - BLOOD ORDERABLES Performing Organization Address City/State/ZIP Code Phon e Number BREEZE PFT LABDE SCAN documented in this encounter Visit Diagnoses Not on filedocumented in this encounter Care Teams Licensing Coordinator Relationship Specialty Start Date End Date Momo Forbes PCP - General Family Practice 01/02/14 [place] [id number] Joseph Quintana, Assigned Nephrology 03/29/21 MD Provider [address] [place] [address] documented as of this encounter
--- OUTSIDE RECORDS SUMMARY | 2022-07-07 10:43 | XMS_ITS | Encounter Summary ---
:1950 Author Organization [place] Address [address] [place] [address] Care Team Providers Name Role Phone ForbesMomo Primary Care Provider Reason for Visit Reason Comments RECHECK Follow Up [place] Encounter Details Date Type Department Care Team Description 03/05/2021 Virtual Visit [facility] Joseph Quintana HTN, kevan dney transplant related (Primary Dx); Nephrology Clinic MD Herminio Kidney replaced by transplant; [address] Aftercare following organ tr ansplant; [address] [place] [address] SE RANJAN [address] [facility] Immunosu ppression (H); SE [address] Vitamin D deficiency; [place] [phone] [phone] Social History Tobacco Use Types Packs/Day Years [...] would you like to be contacted at? [phone] How would you like to obtain your [...] and ended up being [place] a [place] [facility] [place]. He is doing better and now back [...] unspecified documented in this encounter Care Teams Form Carpenter Relationship Specialty Start Date End Date Momo Forbes PCP - General Family Practice 01/02/14 [facility] [address] [place] [address] documented as of this encounter
--- OUTSIDE RECORDS SUMMARY | 2022-07-07 10:43 | XMS_ITS | Encounter Summary ---
:1950 Author Organization [place] Address [facility] [place] [address] Care Team Providers Name Role Phone Momo Forbes Primary Care Provider Joseph Quintana MD Unavailable Encounter Details Date Type Department Care Team Description 08/25/2021 Orders Only [facility] Jose, Kidney tr ansplanted; Transplant Clinic BOGDAN Marcano -donor kidney transp lant recipient [address] [place] [address] Social History Tobacco Use Types [...] documented in this encounter Care Teams Public Health Dentist Relationship Specialty Start Date End Date Momo Forbes PCP - General Family Practice 01/02/14 [facility] [address] [place] [address] Joseph Quintana, Assigned Nephrology 03/29/21 Provider 717 [facility] 353 [facility] [address] [place], [place] [address] documented as of this encounter
--- OUTSIDE RECORDS SUMMARY | 2022-07-07 10:43 | XMS_ITS | Encounter Summary ---
:1950 Author Organization [place] Address [facility] [place] [address] Care Team Providers Name Role Phone Momo Forbes Primary Care Provider Joseph Quintana MD Unavailable Reason for Visit Reason Onset Date Comments Refill Request 08/25/2021 Encounter Details Date Type Department Care Team Description 08/25/2021 Refill [facility] Transplant Debbie Calderon LPN Refill Request Clinic [address] [place] [phone] Social History Tobacco Use Types [...] transplant documented in this encounter Care Teams Larriman Relationship Specialty Start Date End Date Momo Forbes PCP - General Family Practice 01/02/14 [facility] [address] [place] [address] Joseph Quintana, Assigned Nephrology 03/29/[address] [place] [address] 353 [facility] [address] [place] [address] documented as of this encounter
--- OUTSIDE RECORDS SUMMARY | 2022-07-07 10:43 | XMS_ITS | Encounter Summary ---
:1950 Author Organization [place] Address [address] [place] [address] Care Team Providers Name Role Phone Momo Forbes Primary Care Provider Joseph Quintana MD Unavailable Reason for Visit Reason Onset Date Comments Transplant Lab 05/04/2021 Encounter Details Date Type Department Care Team Description 05/04/2021 Telephone [facility] Transplant Krys Garcia, Transplant Lab Clinic RN [address] [place] [address] [phone] Social History Tobacco Use Types [...] maroon colored stools. Stateshe had colonoscopy with [facility] about a year ago. Appears in CareEverywhere colonoscopy was 03/20/2015. Latrell denies infectious symptoms currently but reports he had R foot surgery at [place] this last winter for diabetic foot ulcer. Infection in bottom of foot; laid up since Sep. Pretty well healed except a little speck. Follows up with Dr. Chatterjee. Will check iron panel on next labs. Orders sent. Barbie Ugalde, RN, BSN Solid Organ Transplant, Post Kidney and Pancreas Transplant Commercial Baking Teacher [phone] Telephone Encounter - Krys Garcia RN - 05/04/2021 8:09 AM CDT ISSUE: Falling hemoglobin. documented in this encounter Plan of Treatment Not on filedocumented as of this encounter Visit Diagnoses Not on filedocumented in this encounter Care Teams Pharmacovigilance Safety Expert Relationship Specialty Start Date End Date Momo Forbes PCP - General Family Practice 01/02/14 [facility] [address] [place] [address] Joseph Quintana, Assigned Nephrology 03/29/[address] [place] [address] [address] [place], [place] [address] documented as of this encounter
--- OUTSIDE RECORDS SUMMARY | 2022-07-07 10:43 | XMS_ITS | Encounter Summary ---
:1950 Author Organization [place] Address [address] [place] [address] Care Team Providers Name Role Phone Momo Forbes Primary Care Provider Joseph Quintana MD Unavailable Encounter Details Date Type Department Care Team Description 04/30/2021 External Order [facility] Outside, Provide r Results Molecular Diagnostic s [address] [place] [phone] Social History Tobacco Use Types Packs/Day Years [...] Platelets & Differential (04/30/2021 11:20 AM CDT) [facility] gist Method Time Signature WBC Count [...] filedocumented in this encounter Care Teams Ship Rigger Relationship Specialty Start Date End Date Momo Forbes PCP - General Family Practice 01/02/14 [facility] [address] [place] [address] Joseph Quintana, Assigned Nephrology 03/29/21 MD Provider [address] [place] [address] [address] [place] [address] documented as of this encounter
--- OUTSIDE RECORDS SUMMARY | 2022-07-07 10:43 | XMS_ITS | Encounter Summary ---
:1950 Author Organization [place] Address [facility] [place] [address] Care Team Providers Name Role Phone Momo Forbes Primary Care Provider Encounter Details Date Type Department Care Team Description [facility] BOGDAN Nam [address] [place], [place] [phone] Social History Tobacco Use [...] Barbie Ugalde RN - 10/23/2020 4:27 PM EMISSION SPECIALIST Returned call and left second voicemail message. Patient mentioned in previous phone call he was interested in donating his body upon passing to [facility] for science. Please sent to following website for more information: [email or web address] SION SPECIALIST Telephone Encounter - Gladis Sosa RN - 10/23/2020 3:21 PM CST Patient Call: Voicemail Date/Time: 10/23/20 139pm Reason for call: Patient left a message requesting a call back SION SPECIALIST documented in this encounter Plan of Treatment Not on filedocumented as of this encounter Visit Diagnoses Not on filedocumented in this encounter Care Teams Automotive Leasing Sales Representative Relationship Specialty Start Date End Date Momo Forbes PCP - General Family Practice 01/02/14 [facility] [address] [place] [address] documented as of this encounter
--- OUTSIDE RECORDS SUMMARY | 2022-07-07 10:43 | XMS_ITS | Encounter Summary ---
:1950 Author Organization [place] Address [facility] [place] [address] Care Team Providers Name Role Phone Momo [...] on filedocumented in this encounter Care Teams Cooling System Operator Relationship Specialty Start Date End Date Momo Forbes PCP - General Family Practice 01/02/14 [facility] [address] [place] [address] documented as of this encounter
--- OUTSIDE RECORDS SUMMARY | 2022-07-07 10:43 | XMS_ITS | Encounter Summary ---
:1950 Author Organization [place] Address [address] [place] [address] Care Team Providers Name Role Phone Momo Forbes Primary Care Provider Reason for Visit Reason Onset Date Comments Transplant Immunosuppression Management 07/03/2020 Late to refill Encounter Details Date Type Department Care Team Description 07/03/2020 Telephone [facility] Tram, Transplant Transplant Clinic Barbie Nam, Immunosuppression [address] [place] [address] RN Management (Late to [place], [place] refill) [phone] Social History Tobacco Use [...] Barbie Ugalde RN - 07/03/2020 10:20 AM CROSSBAR SWITCH ADJUSTER Images from the original note were not included. Late to fill IS meds Received: Yesterday Message Contents Meghan Mccormack, [facility] Barbie Ugalde RN ?? Hi Diego Valentin [...] copy to patient so he is aware. 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
--- OUTSIDE RECORDS SUMMARY | 2022-07-07 10:43 | XMS_ITS | Encounter Summary ---
:1950 Author Organization [place] Address [address] [place] [address] Care Team Providers Name Role Phone Momo Forbes Primary Care Provider Joseph Quintana MD Unavailable Encounter Details Date Type Department Care Team Description 12/09/2021 External Order [facility] Outside, Provide r Results Molecular Diagnostic s [address] [place] [phone] Social History Tobacco Use Types Packs/Day Years [...] (12/09/2021 11:50 AM CDT) Analysis Performed At [facility] logist Time Signature WBC Count 7.68 [...] filedocumented in this encounter Care Teams Clinical Laboratory Assistant Relationship Specialty Start Date End Date Momo Forbes PCP - General Family Practice 01/02/14 [facility] [address] [place] [address] Joseph Quintana, Assigned Nephrology 03/29/21 MD Provider [address] [place] [address] 1932 [place], [place] [address] documented as of this encounter
--- OUTSIDE RECORDS SUMMARY | 2022-07-07 10:43 | XMS_ITS | Encounter Summary ---
:1950 Author Organization [place] Address [address] [place] [address] Care Team Providers Name Role Phone Forbes, Momo He Primary Care Provider Reason for Visit Reason Onset Date Comments Transplant Immunosuppression Management 09/08/2020 Encounter Details Date Type Department Care Team Description 09/08/2020 Telephone [facility] Tram, Transplant Transplant Clinic Barbie Nam, Rc [address] [place] [address] [place] [address] Social History Tobacco Use Types [...] Barbie Ugalde RN - 09/09/2020 3:06 PM BOOKKEEPER Second call placed to patient and voicemail message left. KEEPER Telephone Encounter - Barbie Ugalde RN - 09/08/2020 10:31 AM BOOKKEEPER Images from the original note were not included. Message Received: 3 days ago Message Contents Beny Staton, [facility] Barbie Ugalde, BOGDAN ?? Latrell has not filled immunos since 07/21. ??His tacro dose changed and he has not filled the 0.5mg in over a year. ??He has not returned our calls. ?? Beny Staton [facility] Specialty Pharmacist [phone] OUTCOME: Tacrolimus dose was decreased from 2mg [...] he is currently taking and need labs. KEEPER documented in this encounter Plan of Treatment Not on filedocumented as of this encounter Visit Diagnoses Not on filedocumented in this encounter Care Teams 1St Pressman On Web Press Relationship Specialty Start Date End Date Momo Forbes PCP - General Family Practice 01/02/[address] [address] documented as of this encounter
--- OUTSIDE RECORDS SUMMARY | 2022-07-07 10:43 | XMS_ITS | Encounter Summary ---
:1950 Author Organization [place] Address [facility] [place] [address] Care Team Providers Name Role Phone Momo Forbes Primary Care Provider Joseph Qunitana MD Unavailable Encounter Details Date Type Department Care Team Description 07/08/2020 External Order [facility] Outside, Provider Results Transplant Clinic [address] [place] [phone] Social History Tobacco Use Types Packs/Day [...] 9:23 AM Results f or this RESULTS AUTOMOBILE SALESMAN procedure are i n the results section. documented in this encounter Results External Lab Results (07/08/2020 9:23 AM AUTOMOBILE SALESMAN) Analysis Performed At Patho logist Time Signature Scan Lab View Image LABDE SCAN Results (External) Comment: HLA Antibody Screen, Class I an d Class II Specimen (Source) Anatomical Collection Method Collection Time Re ceived Time Location / / Volume Laterality 07/08/2020 9:23 AM AUTOMOBILE SALESMAN Narrative JESSICA PFT - 07/16/2020 2:42 PM AUTOMOBILE SALESMAN Verified by Ruperto Pepper on 07/15/20 20. Patient Reported LABORATORY Performing Organization Address City/State/ZIP Code Phon e Number BREEZE PFT LABDE SCAN documented in this encounter Visit Diagnoses Not on filedocumented in this encounter Care Teams Concrete Panel Installer Relationship Specialty Start Date End Date Momo Forbes PCP - General Family Practice 01/02/14 [facility] [address] [place] [address] Joseph Quintana, Assigned Nephrology 03/29/21 MD Provider [address] [place] [address] [address] [place], [place] [id number] documented as of this encounter
--- OUTSIDE RECORDS SUMMARY | 2022-07-07 10:43 | XMS_ITS | Encounter Summary ---
:1950 Author Organization [place] Address [facility] [address] Care Team Providers Name Role Phone Momo Forbes Primary Care Provider Reason for Visit Reason Onset Date Comments Transplant 02/03/2021 spoke w pt and donna rmed annual neph appt on 03/05/21 Encounter Details Date Type Department Care Team Description 02/03/2021 Telephone [facility] Barbie Ugalde (spoke w pt Transplant Clinic BOGDAN Nam and confirmed annual [address] [facility] SE neph appt on 03/05/21) [place] [address] Social History Tobacco Use Types [...] filedocumented in this encounter Care Teams Cotton Farmworker Relationship Specialty Start Date End Date Momo Forbes PCP - General Family Practice 01/02/14 [facility] [address] [place], [place] [id number] documented as of this encounter
--- OUTSIDE RECORDS SUMMARY | 2022-07-07 10:43 | XMS_ITS | Encounter Summary ---
:1950 Author Organization [place] Address [address] [place] [address] Care Team Providers Name Role Phone Momo Forbes Primary Care Provider Joseph Quintana MD Unavailable Encounter Details Date Type Department Care Team Description 01/27/2021 External Order [facility] Outside, Provider Results Transplant Clinic [address] [place] [phone] Social History Tobacco Use Types Packs/Day [...] with platelets differential (01/27/2021 11:45 AM CDT) [facility] gist Method Time Signature WBC Count [...] filedocumented in this encounter Care Teams Shipping And Receiving Relationship Specialty Start Date End Date Momo Forbes PCP - General Family Practice 01/02/14 [facility] [address] [place] [address] Joseph Quintana, Assigned Nephrology 03/29/21 MD Provider [address] [place] [address] [address] [place] [address] documented as of this encounter
--- OUTSIDE RECORDS SUMMARY | 2022-07-07 10:43 | XMS_ITS | Encounter Summary ---
:1950 Author Organization [place] Address [address] [place] [address] Care Team Providers Name Role Phone Forbes, Momo He Primary Care Provider Reason for Visit Reason Onset Date Comments Transplant Lab 05/28/2020 Encounter Details Date Type Department Care Team Description 05/28/2020 Telephone [facility] Barbie Ugalde nsplant Lab Transplant Clinic BOGDAN Nam [address] [place] [address] [phone] Social History Tobacco Use Types [...] mg/dL on 05/26/20 at 1025 collected at [facility] [phone] (Phone) CBC appears as expected Missing BMP and Tacrolimus levels PLAN: Call to obtain missing results if available. Assess causes of proteinuria. Result routed to Dr. Gómez for comment: Message Received: Today Message Contents Satish Gómez MD [place], Christin Rebecca BOGDAN ?? Yes and obtain DSA as well as Hb A1c please. Previous Messages ----- Message ----- From: Barbie gUalde RN Sent: 05/28/2020 ??11:53 AM CDT To: [...] on filedocumented in this encounter Care Teams Black Top Raker Relationship Specialty Start Date End Date Momo Forbes PCP - General Family Practice 01/02/14 [facility] [address] [place] [address] documented as of this encounter
--- OUTSIDE RECORDS SUMMARY | 2022-07-07 10:43 | XMS_ITS | Encounter Summary ---
:1950 Author Organization [place] Address [address] [place] [address] Care Team Providers Name Role Phone Momo Forbes Primary Care Provider Joseph Quintana MD Unavailable Encounter Details Date Type Department Care Team Description 01/07/2021 External Order [facility] Outside, Provider Results Transplant Clinic [address] [place] [phone] Social History Tobacco Use Types Packs/Day [...] - 01/12/2021 10:34 AM CDT Verified by Casise Florian on 01/12/2021. Patient Reported LAB - BLOOD ORDERABLES Performing Organization Address City/State/ZIP Code Phon e Number BREEZE PFT LABDE SCAN documented in this encounter Visit Diagnoses Not on filedocumented in this encounter Care Teams Sales Enablement Lead Relationship Specialty Start Date End Date Momo Forbes PCP - General Family Practice 01/02/14 [facility] [address] [place] [address] Joseph Quintana, Assigned Nephrology 03/29/21 MD Provider 717 [facility] 353 [facility] [address] [place] [address] documented as of this encounter
--- OUTSIDE RECORDS SUMMARY | 2022-07-07 10:43 | XMS_ITS | Encounter Summary ---
:1950 Author Organization [place] Address [facility] [place] [place] [address] Care Team Providers Name Role Phone Momo Forbes Primary Care Provider Reason for Visit Reason Onset Date Comments Critical Values 07/08/2020 Encounter Details Date Type Department Care Team Description 07/08/2020 Telephone [facility] Cristy Chen LPN C ritical Values Transplant Clinic [address] [place] [address] [phone] Social History Tobacco Use Types Packs/Day Years Used Date Smoking Tobacco: Former Cigars Quit : 08/22/2006 Smokeless Tobacco: Never Alcohol Use Standard Drinks/Week Comments Yes 0 (1 standard drink = 0.6 oz pure alcoho l) occasional drink. Sex Assigned at Date Recorded Not on file documented as of this encounter Miscellaneous Notes Telephone Encounter - Barbie Ugalde RN - 07/08/2020 4:10 PM ANALYTICAL TECH Call placed to Latrell regarding the critical [...] the summer and that as a transplant medical anthropology director he was not prescribing his insulin. Per Dr. Huerta from visit in 10/09/19: # Diabetes: Poorly controlled (HbA1c >9%) Last HbA1c: 13.7%. - Management as per primary care. - Recommended all blood sugars stay below 200, with fasting between 90 and 130. ?? Latrell states that he lost his blood sugar meter but he can pick one up at [facility]. He asked how often he should be [...] level. Latrell states he returns to 08/08. YTICAL TECH Telephone Encounter - Cristy Chen LPN - 07/08/2020 3:39 PM CST DATE: 07/08/2020 TIME OF RECEIPT FROM LAB: 3:30 PM LAB TEST: Glucose LAB VALUE: 407 RESULTS GIVEN WITH READ-BACK TO (PROVIDER): Barbie Ugalde RN TIME LAB VALUE REPORTED TO PROVIDER: 3:39 PM YTICAL TECH documented in this encounter Plan of Treatment Not on filedocumented as of this encounter Visit Diagnoses Not on filedocumented in this encounter Care Teams Solar Technician Relationship Specialty Start Date End Date Momo Forbes PCP - General Family Practice 01/02/14 [facility] [address] [place] [address] documented as of this encounter
--- OUTSIDE RECORDS SUMMARY | 2022-07-07 10:43 | XMS_ITS | Encounter Summary ---
:1950 Author Organization [place] Address [address] [place] [address] Care Team Providers Name Role Phone Momo Forbes Primary Care Provider Encounter Details Date Type Department Care Team Description 01/30/[address] [facility] Transplant Viv Torres RN [place] [phone] Social History Tobacco Use Types Packs/Day [...] not included. Message Received: Today Beny Staton, [facility], [facility] Barbie Ugalde, BOGDAN Diego has not ordered tacro 0.5mg in over a year. ??He just ordered 1mg today but not the 0.5mg. Beny Staton [facility] Specialty Pharmacist [phone] CAST ASSOCIATE task: Can you please call Diego to find out what dose of tacrolimus he is taking and notify coordinator if different than what is prescribed. Recommend repeat tacrolimus level for previously elevated level 7.3, goal 4-6. Thank you, Barbie Ugalde RN, BSN Solid Organ Transplant, Post Kidney and Pancreas Transplant Eyeglass Assembler [phone] Telephone Encounter - Viv Torres RN - [...] documented in this encounter Care Teams Mobile Qa Tester Relationship Specialty Start Date End Date Momo Forbes PCP - General Family Practice 01/02/14 [place] [address] documented as of this encounter
--- OUTSIDE RECORDS SUMMARY | 2022-07-07 10:43 | XMS_ITS | Encounter Summary ---
:1950 Author Organization [place] Address [facility] [place] [address] Care Team Providers Name Role Phone Momo Forbes Primary Care Provider Joseph Quintana MD Unavailable Reason for Visit Reason Onset Date Comments Refill Request 08/25/2021 Prograf 0.5mg Encounter Details Date Type Department Care Team Description 08/25/2021 Telephone [facility] Orlando Richey, Refil l Request (Prograf Transplant Clinic 0.5mg) [address] [place] [phone] Social History Tobacco Use Types [...] CPA: [facility] COLLABORATIVE AGREEMENT FOR IMMUNOSUPPRESSENT PRESCRIPTION MODIFICATION. Routing encounter to Transplant as an FYI. 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
--- OUTSIDE RECORDS SUMMARY | 2022-07-07 10:43 | XMS_ITS | Encounter Summary ---
:1950 Author Organization [place] Address [address] [place] [address] Care Team Providers Name Role Phone Momo Forbes Primary Care Provider Joseph Quintana MD Unavailable Encounter Details Date Type Department Care Team Description 11/16/2021 External Order [facility] Outside, Provide r Results Molecular Diagnostic s [address] [place] [phone] Social History Tobacco Use Types Packs/Day Years [...] City/State/[facility] Code Phon e Number B[facility]ZE PFT NON-INTERFACED (ONBASE SCANS) (ABNORMAL) Lipid Profile (11/16/2021 7:12 PM CDT) [facility] Method Time Signature Cholesterol 98 90 [...] & Differential (11/16/2021 4:35 PM CDT) [facility] Method Time Signature WBC Count 6.8 [...] filedocumented in this encounter Care Teams Pipeline Operator Relationship Specialty Start Date End Date Momo Forbes PCP - General Family Practice 01/02/14 [facility] [address] [place] [address] Joseph Quintana, Assigned Nephrology 03/29/21 Provider 7 [facility] 353 [facility] [address] [place] [address] documented as of this encounter
--- OUTSIDE RECORDS SUMMARY | 2022-07-07 10:43 | XMS_ITS | Encounter Summary ---
:1950 Author Organization [place] Address [facility] [place] [address] Care Team Providers Name Role Phone Momo Forbes Primary Care Provider Joseph Quintana MD Unavailable Reason for Visit Reason Onset Date Comments Transplant 09/22/2021 Encounter Details Date Type Department Care Team Description 09/22/2021 Telephone [facility] service unitt Transplant Clinic BOGDAN Nam [address] [place] [address] [phone] Social History Tobacco Use Types Packs/Day Years Used Date Smoking Tobacco: Former Cigars Quit : 08/22/2006 Smokeless Tobacco: Never Alcohol Use Standard Drinks/Week Comments Yes 0 (1 standard drink = 0.6 oz pure alcoho l) occasional drink. Sex Assigned at Date Recorded Not on file documented as of this encounter Miscellaneous Notes Telephone Encounter - Barbie Ugalde RN - 09/22/2021 2:16 PM MANAGEMENT CONSULTING Post discharge from [facility] 09/20/21; to rehab/TCU due to wound on stump; can't wear prosthetic until healed. UTI on Cephelaxin 500 mg TID. Katharine TCU Unit Phone [facility] station [phone] Phone BOGDAN Baker [phone] Discussed Prograf dose was 1.5 mg at hospital. Should be 1 mg AM/0.5 mg PM. Repeat level with [facility] 09/24/21. Verbal orders taken by admissions. Barbie Crisostomo, RN, BSN Solid Organ Transplant, Post Kidney and Pancreas Transplant Manager Behavioral [phone] GEMENT CONSULTING Telephone Encounter - MichaelAzael Deann - 09/22/2021 12:09 PM CST Katharine under the new name [facility] TCU has questions regarding medicationsand lab. GEMENT CONSULTING documented in this encounter Plan of Treatment Not on filedocumented as of this encounter Visit Diagnoses Not on filedocumented in this encounter Care Teams Enrollment Management Director Relationship Specialty Start Date End Date Momo Forbes PCP - General Family Practice 01/02/14 [facility] [address] [place] [address] Joseph Quintana, Assigned Nephrology 03/29/21 MD Provider [address] [place] [address] [address] [place] [address] documented as of this encounter
--- OUTSIDE RECORDS SUMMARY | 2022-07-07 10:43 | XMS_ITS | Encounter Summary ---
:1950 Author Organization [place] Address [facility] [place] [address] Care Team Providers Name Role Phone Momo Forbes Primary Care Provider Joseph Quintana MD Unavailable Encounter Details Date Type Department Care Team Description 02/02/2021 External Order [facility] Outside, Provider Results Transplant Clinic [address] [place] [phone] Social History Tobacco Use Types Packs/Day [...] by Cassie Florian on 02/04/2021. Performed by: [facility] [address] [place], [place] ??[address] Patient Reported LABORATORY Performing Organization Address City/State/ZIP Code Phon e Number JESSICA PFT COVID-19 EXTERNAL COVID-[place] [address], [facility] RESULTS Result Scanned into Patient Record by Cloud[employer] Refer to Result Comment/Narrative for exact performing laboratory documented in this encounter Visit Diagnoses Not on filedocumented in this encounter Care Teams Work Checker Relationship Specialty Start Date End Date Momo Forbes PCP - General Family Practice 01/02/14 [facility] [address] [place] [address] Joseph Quintana, Assigned Nephrology 03/29/21 MD Provider 717 [facility] 353 [facility] [address] [place] [address] documented as of this encounter
--- OUTSIDE RECORDS SUMMARY | 2022-07-07 10:43 | XMS_ITS | Encounter Summary ---
:1950 Author Organization [place] Address [address] [place] [address] Care Team Providers Name Role Phone Momo Forbes Primary Care Provider Mariano, Joseph Durham MD Unavailable Reason for Visit Reason Onset Date Comments Transplant 12/02/2021 Encounter Details Date Type Department Care Team Description 12/02/2021 Telephone [facility] Transplant Obdulia Peacock, professor of nursing Clinic [address] [place] [address] [phone] Social History Tobacco Use Types Packs/Day [...] confirm he received message. Gretta Peacock RN Credit Or Loans Officer [phone] ADDENDUM: left message for patient stating he has active orders at preferred lab. Asked to please obtain a full set of transplant labs as soon as possible. Gretta Peacock professor of nursingCredit Or Loans Officer [phone] documented in this encounter Plan of Treatment Not on filedocumented as of this encounter Visit Diagnoses Not on filedocumented in this encounter Care Teams Varnish Finisher Relationship Specialty Start Date End Date Momo Forbes PCP - General Family Practice 01/02/14 [facility] [address] [place] [address] Joseph Quintana, Assigned Nephrology 03/29/[address] [place] [address] [address] [place] [address] documented as of this encounter
--- OUTSIDE RECORDS SUMMARY | 2022-07-07 10:43 | XMS_ITS | Encounter Summary ---
:1950 Author Organization [place] Address [address] [place] [address]. [place] [address] Care Team Providers Name Role Phone Momo Forbes Primary Care Provider Joseph Quintana MD Unavailable Reason for Visit Reason Onset Date Comments Medication Refill Refill Request 08/20/2021 Encounter Details Date Type Department Care Team Description 08/20/2021 Refill [facility] Joseph Quintana on Refill; Nephrology Clinic MD Herminio Refill Request [address] 909 [facility] 353 [facility] [address] [place], [place] [phone] Social History Tobacco Use Types Packs/Day Years [...] transplant documented in this encounter Care Teams Batch Heat Treat Operator Relationship Specialty Start Date End Date Momo Forbes PCP - General Family Practice 01/02/14 [facility] [address] [place] [address] Joseph Quintana, Assigned Nephrology 03/29/21 MD Provider 717 [facility] 353 [facility] [address] [place] [address] documented as of this encounter
--- OUTSIDE RECORDS SUMMARY | 2022-07-07 10:43 | XMS_ITS | Encounter Summary ---
:1950 Author Organization [place] Address [address] [place] [address] Care Team Providers Name Role Phone Momo Forbes Primary Care Provider Joseph Quintana MD Unavailable Encounter Details Date Type Department Care Team Description 08/08/2020 External Order [facility] Outside, Provider Results Transplant Clinic [address] [place] [phone] Social History Tobacco Use Types [...] 08/08/2020 11:43 Results f or this AM PATIENT RELATIONS REPRESENTATIVE procedure are i n the results section. TACROLIMUS BY TANDEM Routine 08/08/2020 11:34 Res ults for this MASS SPECTROMETRY AM PATIENT RELATIONS REPRESENTATIVE procedure are in the results section. LIPID PROFILE Routine 08/08/2020 11:34 Results fo r this AM PATIENT RELATIONS REPRESENTATIVE procedure are i n the results section. ALT Routine 08/08/2020 11:34 Results for this AM PATIENT RELATIONS REPRESENTATIVE procedure are i n the results section. BASIC METABOLIC PANEL Routine 08/08/2020 11:34 Re sults for this AM PATIENT RELATIONS REPRESENTATIVE procedure are i n the results section. documented in this encounter Results (ABNORMAL) Hemoglobin A1c (08/08/2020 11:43 AM PATIENT RELATIONS REPRESENTATIVE) Analysis Performed At [facility] Time Signature Hemoglobin A1C 10.2 (H) <=6.9 % LABDE SCAN (External) Specimen (Source) Anatomical Collection Method Collection Time Re ceived Time Location / / Volume Laterality Blood specimen 08/08/2020 11:43 (specimen) AM PATIENT RELATIONS REPRESENTATIVE Narrative [facility] PFT - 08/11/2020 1:28 PM PATIENT RELATIONS REPRESENTATIVE Verified by Praful Huff on 2019. Patient Reported LAB - BLOOD ORDERABLES Performing Organization Address City/State/ZIP Code Phon e Number BREEZE PFT LABDE SCAN Tacrolimus level (08/08/2020 11:34 AM PATIENT RELATIONS REPRESENTATIVE) P athologist Signature Tacrolimus(FK-5 11.7 See scan LABDE SCAN 06) (External) ng/mL Specimen (Source) Anatomical Collection Method Collection Time Re ceived Time Location / / Volume Laterality Blood specimen 08/08/2020 11:34 (specimen) AM PATIENT RELATIONS REPRESENTATIVE Narrative [facility]ZE PFT - 08/11/2020 1:28 PM PATIENT RELATIONS REPRESENTATIVE Verified by Praful Huff on 2019. Patient Reported LAB - BLOOD ORDERABLES Performing Organization Address City/State/ZIP Code Phon e Number BREEZE PFT LABDE SCAN (ABNORMAL) Lipid Profile (08/08/2020 11:34 AM PATIENT RELATIONS REPRESENTATIVE) Patholo gist Method Time Signature Cholesterol 79 (L) 90 - 200 LABDE SCAN (External) MG/DL Triglycerides 86 40 - 197 LABDE SCAN (External) MG/DL LDL-Cholesterol 29 <100 mg/dL LABDE SCAN (External) HDL Cholesterol 33 (L) >=40 mg/dL LABDE SCAN (External) Specimen (Source) Anatomical Collection Method Collection Time Re ceived Time Location / / Volume Laterality Blood specimen 08/08/2020 11:34 (specimen) AM PATIENT RELATIONS REPRESENTATIVE Narrative B[facility]ZE PFT - 08/11/2020 1:28 PM PATIENT RELATIONS REPRESENTATIVE Verified by Praful Huff on 2019. Patient Reported LAB - BLOOD ORDERABLES Performing Organization Address City/State/ZIP Code Phon e Number BREEZE PFT LABDE SCAN ALT (08/08/2020 11:34 AM PATIENT RELATIONS REPRESENTATIVE) P athologist Signature ALT (External) 8 4 - 50 U/L LABDE SCAN Specimen (Source) Anatomical Collection Method Collection Time Re ceived Time Location / / Volume Laterality Blood specimen 08/08/2020 11:34 (specimen) AM PATIENT RELATIONS REPRESENTATIVE Narrative B[facility]ZE PFT - 08/11/2020 1:28 PM PATIENT RELATIONS REPRESENTATIVE Verified by Praful Huff on 2019. Patient Reported LAB - BLOOD ORDERABLES Performing Organization Address City/State/ZIP Code Phon e Number BREEZE PFT LABDE SCAN (ABNORMAL) Basic metabolic panel (08/08/2020 11:34 AM PATIENT RELATIONS REPRESENTATIVE) P athologist Signature Glucose 119 (H) 60 [...] Laterality Blood specimen 08/08/2020 11:34 (specimen) AM PATIENT RELATIONS REPRESENTATIVE Narrative BREEZE PFT - 08/11/2020 1:28 PM PATIENT RELATIONS REPRESENTATIVE Verified by Praful Huff on 2019. Patient Reported LAB - BLOOD ORDERABLES Performing Organization Address City/State/ZIP Code Phon e Number BREEZE PFT LABDE SCAN documented in this encounter Visit Diagnoses Not on filedocumented in this encounter Care Teams Environmental Studies Professor Relationship Specialty Start Date End Date Momo Forbes PCP - General Family Practice 01/02/14 [facility] [address] [place] [address] Joseph Quintana, Assigned Nephrology 03/29/21 MD Provider 7 [facility] 353 [facility] 1932 [place], [place] [address] documented as of this encounter
--- OUTSIDE RECORDS SUMMARY | 2022-07-07 10:44 | XMS_ITS | Encounter Summary ---
:1950 Author Organization [place] Address [address] [place] [address] Care Team Providers Name Role Phone Forbes, Ton Primary Care Provider Reason for Visit Reason Comments Clinic Care Coordination - Follow-up Encounter Details Date Type Department Care Team Description 11/16/2019 Care Coordination [facility] Sejal Rodriguez Nephrology Clinic BOGDAN Llanos Coordination - [place] [phone] Follow-up 9 [facility] ([facility]) [place] [address] Social History Tobacco Use Types [...] on filedocumented in this encounter Care Teams Pediatric Hospitalist Relationship Specialty Start Date End Date Momo Forbes PCP - General Family Practice 01/02/14 [facility] [address] [place] [address] documented as of this encounter
--- OUTSIDE RECORDS SUMMARY | 2022-07-07 10:44 | XMS_ITS | Encounter Summary ---
:1950 Author Organization [place] Address [address] [place] [address] Care Team Providers Name Role Phone Momo Forbes Primary Care Provider Reason for Visit Reason Comments RECHECK Post kid tx f/u Encounter Details Date Type Department Care Team Description 10/09/2019 Office Visit [facility] Shiva Presley MD [facility] [address] [facility] [address] [place] [address] Kidney transplanted (Primary Dx); Nephrology Clinic , Kidney/Pancreas Recipient Need for influenza vaccination; [place] HTN, kidney transplant relat ed; [address] Immunosupp ression (H); SE Skin cancer screening; [place], [place] Hypovitamino sis D [phone] Social History [...] Comments Blood Pressure 169/76 10/09/2019 2:35 PM CONTACT CENTER ASSOCIATE Pulse 67 10/09/2019 2:35 PM CONTACT CENTER ASSOCIATE Temperature - - Respiratory Rate - - Oxygen Saturation 95% 10/09/2019 2:35 PM CONTACT CENTER ASSOCIATE Inhaled Oxygen Concentration - - Weight 132.5 kg (292 lb 1.6 oz) 10/09/2019 2:35 PM CONTACT CENTER ASSOCIATE Height - - Body Mass Index 39.62 10/10/2017 2:25 PM CONTACT CENTER ASSOCIATE documented in this encounter Progress Notes Shiva [...] being entered into the official medical record. ACT CENTER ASSOCIATE documented in this encounter Nursing Notes Josseline Recinos RN - 10/09/2019 2:45 PM CST Diego Guthrie was seen today in clinic by this typewriter aligner. Medications, lab orders, lab frequency,and necessary follow up discussed with patient. Patient was provided with a copy of the current lab letter. Patient voiced understanding and agreement of education and plan. Josseline Recinos RN ACT CENTER ASSOCIATE Jeanette Finley CMA - 10/09/2019 2:45 PM CST Chief Complaint Patient presents with ??? RECHECK Post kid tx f/u Blood pressure (!) 169/76, pulse 67, weight 132.5 kg (292 lb 1.6 oz), SpO2 95 %. Jeanette Finley CMA ACT CENTER ASSOCIATE documented in this encounter Plan of [...] deficiency documented in this encounter Care Teams Dump Truck Driver Off Highway Relationship Specialty Start Date End Date Momo Forbes PCP - General Family Practice 01/02/14 [facility] [address] [place] [address] documented as of this encounter
--- OUTSIDE RECORDS SUMMARY | 2022-07-07 10:44 | XMS_ITS | Encounter Summary ---
:1950 Author Organization [place] Address [address] [place] [address] Care Team Providers Name Role Phone Momo Forbes Primary Care Provider Encounter Details Date Type Department Care Team Description 05/16/2019 Orders Only [facility] Loy Morales, Aft ercare following organ transplant; [facility] Kidney replaced by transplant; Laboratory [address] [facility] Encounter for long-term curr ent use of medication [address] [place] [phone] (Wo rk) Social History Tobacco Use Types [...] (ABNORMAL) Tacrolimus level (05/16/2019 3:43 PM CDT) [facility] Method Time Signature Tacrolimus Last 05/1605/18/[address] [facility] 1230AM 11:28 AM CDT [facility] Tacrolimus 4.6 (L) 5.0 - 05/18/2019 [facility] 15.0 ug/L 4:11 PM CDT [facility] Comment: Tacrolimus Reference [...] its performa nce characteristics determined by the [place] [...] Phon e Number [facility] [address] [place], [place] [id number] [place] [address] documented in this encounter Visit Diagnoses Diagnosis Aftercare following organ transplant Kidney replaced by transplant Encounter for long-term current use of m edication documented in this encounter Care Teams Veneer Manufacturer Relationship Specialty Start Date End Date Momo Forbes PCP - General Family Practice 01/02/14 [facility] [address] [place] [address] documented as of this encounter
--- OUTSIDE RECORDS SUMMARY | 2022-07-07 10:44 | XMS_ITS | Encounter Summary ---
:1950 Author Organization [place] Address [address] [place] [address]. [place] [address] Care Team Providers Name Role Phone Momo Forbes Primary Care Provider Encounter Details Date Type Department Care Team Description 09/26/2019 Medical Correspondence [facility] [place] Scan, BLOOD GLUCOSE LOG Health Info Mgmt Non-Provider Srvcs [address] [place] [phone] Social History Tobacco Use Types Packs/Day [...] on filedocumented in this encounter Care Teams Linking Machine Operator Relationship Specialty Start Date End Date Momo Forbes PCP - General Family Practice 01/02/14 [facility] [address] [place] [address] documented as of this encounter
--- OUTSIDE RECORDS SUMMARY | 2022-07-07 10:44 | XMS_ITS | Encounter Summary ---
:1950 Author Organization [place] Address [address] [facility] [place] [place] [address] Care Team Providers Name Role Phone ForbesMomo santiago A Primary Care Provider Reason for Visit Reason Onset Date Comments Kidney Transplant 07/12/2019 Encounter Details Date Type Department Care Team Description 07/12/2019 Telephone [facility] Estefania Nguyen Transplant Transplant Clinic Amanda Fletcher RN [address] [place] [phone] Social History Tobacco Use Types Packs/Day [...] left with instruction listed below. Order placed ING REEL ASSEMBLER Telephone Encounter - Amanda Nguyen RN - 07/12/2019 12:23 PM FISHING REEL ASSEMBLER Clinic appt 07/17 at 4:45 Plan: Called patient to remind him of appt date/time. Asked that he complete labs prior to appt. SREEKANTH task: Please send one time lab order to complete all tx labs within the next week. ING REEL ASSEMBLER documented in this encounter Plan of Treatment Not on filedocumented as of this encounter Visit Diagnoses Not on filedocumented in this encounter Care Teams Graphics Intern Relationship Specialty Start Date End Date Momo Forbes PCP - General Family Practice 01/02/14 [facility] [address] [place] [address] documented as of this encounter
--- OUTSIDE RECORDS SUMMARY | 2022-07-07 10:44 | XMS_ITS | Encounter Summary ---
:1950 Author Organization [place] Address [facility] [place] [address] Care Team Providers Name Role Phone Momo Forbes Primary Care Provider Encounter Details Date Type Department Care Team Description 10/09/2019 Orders Only [facility] Transplant Mati Recinos RN Clinic [address] [place], [place] [phone] Social History Tobacco Use Types Packs/Day [...] 3:48 PM CST Orders updated. Faxed to [facility] lab: [facility] T [phone] F [phone] EPSY PHYSICIAN documented in this encounter Plan of Treatment Not on filedocumented as of this encounter Visit Diagnoses Not on filedocumented in this encounter Care Teams Contract Administration Specialist Relationship Specialty Start Date End Date Momo Forbes PCP - General Family Practice 01/02/14 [facility] [address] [place] [address] documented as of this encounter
--- OUTSIDE RECORDS SUMMARY | 2022-07-07 10:44 | XMS_ITS | Encounter Summary ---
:1950 Author Organization [place] Address [address] [facility] [place] [address] Care Team Providers Name Role Phone Momo Forbes Primary Care Provider Reason for Visit Reason Onset Date Comments Transplant Lab 01/29/2020 overdue labs Encounter Details Date Type Department Care Team Description 01/29/2020 Telephone [facility] Barbie Ugalde Tra nsplant Lab Transplant Clinic BOGDAN Nam (overdue labs) [address] [place] [phone] Social History Tobacco Use Types Packs/Day [...] a kit for blood work sent to [facility] as requested. Explained kits are no longer being used for drug levels but new orders could be sent to lab if needed. [facility] [phone] (Phone) [facility] has annual order on file sent September 2019 and can fax to their new [facility] location that opened 2 weeks ago. Patient seen provider in [facility] who meryl Hemoglobin A1C and BMP butnot [...] on filedocumented in this encounter Care Teams Despatch Clerk Relationship Specialty Start Date End Date Momo Forbes PCP - General Family Practice 01/02/14 [facility] [address] [place] [address] documented as of this encounter
--- OUTSIDE RECORDS SUMMARY | 2022-07-07 10:44 | XMS_ITS | Encounter Summary ---
:1950 Author Organization [place] Address [address] [place] [address]. [place] [address] Care Team Providers Name Role Phone Momo Forbes Primary Care Provider Encounter Details Date Type Department Care Team Description 09/25/2019 Medical Correspondence [facility] Scan, PATIENT BLOOD Health Info Mgmt Non-Provider GLUCOSE SIVAKUMAR LEMUS Srvcs [address] [place] [address] Social History Tobacco Use Types [...] on filedocumented in this encounter Care Teams Gauge And Weigh Machine Adjuster Relationship Specialty Start Date End Date Momo Forbes PCP - General Family Practice 01/02/14 [facility] [address] [place] [address] documented as of this encounter
--- OUTSIDE RECORDS SUMMARY | 2022-07-07 10:44 | XMS_ITS | Encounter Summary ---
:1950 Author Organization [place] Address [facility] [place] [address] Care Team Providers Name Role Phone Momo [...] on filedocumented in this encounter Care Teams Sanitary Inspector Relationship Specialty Start Date End Date Momo Forbes PCP - General Family Practice 01/02/14 [facility] [address] [place] [address] documented as of this encounter
--- OUTSIDE RECORDS SUMMARY | 2022-07-07 10:44 | XMS_ITS | Encounter Summary ---
:1950 Author Organization [place] Address [address] [facility] [place] [address] Care Team Providers Name Role Phone Momo Forbes Primary Care Provider Joseph Quintana MD Unavailable Encounter Details Date Type Department Care Team Description 05/26/2020 External Order [facility] Outside, Provider Results Transplant Clinic [address] [place] [phone] Social History Tobacco Use Types [...] with platelets differential (05/26/2020 10:25 AM CDT) [facility] gist Method Time Signature WBC Count 4.49 [...] filedocumented in this encounter Care Teams Instructor Of Spanish Relationship Specialty Start Date End Date Momo Forbes PCP - General Family Practice 01/02/14 [facility] [address] [place] [address] Joseph Quintana, Assigned Nephrology 03/29/21 MD Provider [address] [place] [address] 353 [facility] [address] [place], [place] [address] documented as of this encounter
--- OUTSIDE RECORDS SUMMARY | 2022-07-07 10:44 | XMS_ITS | Encounter Summary ---
:1950 Author Organization [place] Address [address] [facility] [address] Care Team Providers Name Role Phone Momo Forbes Primary Care Provider Reason for Visit Reason Onset Date Comments Refill Request 03/18/2020 Mycophenolate and Pr ograf 1mg Encounter Details Date Type Department Care Team Description 03/18/2020 Refill [facility] Mariano, Joseph Refill R equest Nephrology Clinic MD Herminio (Mycophenolate and [place] [address] [place] [address] SE Prograf 1mg) 909 [facility] RANJAN 353 [facility] [address] [place], [place] [phone] Social History Tobacco Use Types Packs/Day Years [...] transplant documented in this encounter Care Teams Management Trainer Relationship Specialty Start Date End Date Momo Forbes PCP - General Family Practice 01/02/14 [facility] [address] [place] [address] documented as of this encounter
--- OUTSIDE RECORDS SUMMARY | 2022-07-07 10:44 | XMS_ITS | Encounter Summary ---
:1950 Author Organization [place] Address [facility] [place] [address] Care Team Providers Name Role Phone Momo [...] on filedocumented in this encounter Care Teams Lasting Room Supervisor Relationship Specialty Start Date End Date Momo Forbes PCP - General Family Practice 01/02/14 [facility] [address] [place] [address] documented as of this encounter
--- OUTSIDE RECORDS SUMMARY | 2022-07-07 10:44 | XMS_ITS | Encounter Summary ---
:1950 Author Organization [place] Address [address] [facility] [place] [address] Care Team Providers Name Role Phone Momo Forbes Primary Care Provider Joseph Quintana MD Unavailable Encounter Details Date Type Department Care Team Description 05/26/2020 External Order [facility] Outside, Provider Results Transplant Clinic [address] [place] [address] Social History Tobacco Use Types [...] on filedocumented in this encounter Care Teams Transmitter Engineer In Charge Relationship Specialty Start Date End Date Momo Forbes PCP - General Family Practice 01/02/14 [facility] [address] [place] [address] Joseph Quintana, Assigned Nephrology 03/29/21 MD Provider 7 [facility] 353 [facility] [address] [place], [place] [address] documented as of this encounter
--- OUTSIDE RECORDS SUMMARY | 2022-07-07 10:44 | XMS_ITS | Encounter Summary ---
:1950 Author Organization [place] Address [facility] [place] [address] Care Team Providers Name Role Phone Momo Forbes Primary Care Provider Reason for Visit Reason Onset Date Comments Refill Request 02/04/2020 prograf, mycophenola te Encounter Details Date Type Department Care Team Description 02/04/2020 Refill [facility] Spong, Joseph Refill R equest Transplant Clinic MD Herminio (prograf, 909 [facility] SE 717 [facility] mycophenolate) [facility] 353 [facility] 96[phone] [place] [address] (Wo rk) Social History Tobacco [...] documented in this encounter Care Teams Car Seat Upholsterer Relationship Specialty Start Date End Date Momo Forbes PCP - General Family Practice 01/02/14 [facility] [address] [place] [address] documented as of this encounter
--- OUTSIDE RECORDS SUMMARY | 2022-07-07 10:44 | XMS_ITS | Encounter Summary ---
:1950 Author Organization [place] Address [address] [place] [address] Care Team Providers Name Role Phone Forbes, Ton Primary Care Provider Reason for Visit Reason Comments Clinic Care Coordination - Follow-up Encounter Details Date Type Department Care Team Description 10/25/2019 Care Coordination [facility] Sejal Rodriguez Nephrology Clinic BOGDAN Llanos Coordination - [place] [phone] Follow-up 9 [facility] ([place]) [place] [address] Social History Tobacco Use Types [...] back (follow up BP). Romi Rodriguez RN WHEELER Romi Rodriguez RN - 10/25/2019 10:15 AM [...] further questions or concerns. Romi Rodriguez, RN WHEELER documented in this encounter Plan of Treatment Not on filedocumented as of this encounter Visit Diagnoses Not on filedocumented in this encounter Care Teams Grain Trader Relationship Specialty Start Date End Date Momo Forbes PCP - General Family Practice 01/02/14 [facility] [address] [place] [address] documented as of this encounter
--- OUTSIDE RECORDS SUMMARY | 2022-07-07 10:44 | XMS_ITS | Encounter Summary ---
:1950 Author Organization [place] Address [facility] [place] [address] Care Team Providers Name Role Phone Momo [...] on filedocumented in this encounter Care Teams Mink Rancher Relationship Specialty Start Date End Date Momo Forbes PCP - General Family Practice 01/02/14 [facility] [address] [place] [address] documented as of this encounter
--- OUTSIDE RECORDS SUMMARY | 2022-07-07 10:44 | XMS_ITS | Encounter Summary ---
:1950 Author Organization [place] Address [address] [place] [address] Care Team Providers Name Role Phone Momo Forbes Primary Care Provider Reason for Visit Reason Onset Date Comments Kidney Transplant 05/20/2019 Encounter Details Date Type Department Care Team Description 05/20/2019 Telephone [facility] Estefania Nguyen Transplant Transplant Clinic Amanda Fletcher RN [address] [place] [phone] Social History Tobacco Use Types Packs/Day [...] not charted as 12 hour trough. ?? Plan/INSTRUCTIONAL SYSTEMS DESIGN CONSULTANT task: ?? Please confirm timing of lab draw. If this was not a 12 hour level, please repeat labs in May and ensure 12 hour trough level with lab draw. Enter lab orders if needed Telephone Encounter - Amanda Nguyen RN - 05/20/2019 5:38 PM CDT Issue: Tac 4.6 - however this is not charted as 12 hour trough. Plan/INSTRUCTIONAL SYSTEMS DESIGN CONSULTANT task: Please confirm timing of lab draw. If this was not a 12 hour level, please repeat labs in May and ensure 12 hour trough level with lab draw. Enter lab orders if needed. documented in this encounter Plan of Treatment Not on filedocumented as of this encounter Visit Diagnoses Not on filedocumented in this encounter Care Teams Clearing Inspector Relationship Specialty Start Date End Date Momo Forbes PCP - General Family Practice 01/02/14 [facility] [address] [place] [address] documented as of this encounter
--- OUTSIDE RECORDS SUMMARY | 2022-07-07 10:44 | XMS_ITS | Encounter Summary ---
:1950 Author Organization [place] Address [facility] [place] [address] Care Team Providers Name Role Phone Momo Forbes Primary Care Provider Reason for Visit Reason Onset Date Comments Refill Request 05/07/2020 Mycophenplate and Pr ograf Encounter Details Date Type Department Care Team Description 05/07/2020 Refill [facility] Joseph Quintana Refill R equest Nephrology Clinic MD Herminio (Mycophenplate and [address] Prograf) [address] [place] [phone] Social History Tobacco Use Types Packs/Day Years [...] transplant documented in this encounter Care Teams Assembly Associate Relationship Specialty Start Date End Date Momo Forbes PCP - General Family Practice 01/02/14 [facility] [address] [place] [address] documented as of this encounter
--- OUTSIDE RECORDS SUMMARY | 2022-07-07 10:45 | XMS_ITS | Encounter Summary ---
:1950 Author Organization [place] Address [address] [place] [address] Care Team Providers Name Role Phone Momo Forbes Primary Care Provider Reason for Visit Reason Onset Date Comments Transplant 10/18/2018 post transplant sche duling Encounter Details Date Type Department Care Team Description 10/18/2018 Telephone [facility] Nazia Jacobson Transplant (post Transplant Clinic BOGDAN Hickscounty court judge scheduling) [address] [place] [phone] Social History Tobacco Use Types Packs/Day [...] detailed message with weight managements number. ER SPECIALIST Telephone Encounter - Maribel Plunkett - 10/18/2018 9:32 AM CST I attempted to contact pt to give him the number for weight management, as they want to talk directly to the patient when scheduling initial appointment, and reached his VM. I LVM asking him to return my call. ER SPECIALIST documented in this encounter Plan of Treatment Not on filedocumented as of this encounter Visit Diagnoses Not on filedocumented in this encounter Care Teams Ballistic Expert Relationship Specialty Start Date End Date Momo Forbes PCP - General Family Practice 01/02/14 [facility] [address] [place] [address] documented as of this encounter
--- OUTSIDE RECORDS SUMMARY | 2022-07-07 10:45 | XMS_ITS | Encounter Summary ---
:1950 Author Organization [place] Address [address] [place] [address] Care Team Providers Name Role Phone Forbes, Ton Primary Care Provider Reason for Visit Reason Onset Date Comments Refill Request 10/25/2018 Encounter Details Date Type Department Care Team Description 10/25/2018 Refill [facility] Joseph Quintana MD Refill Request Transplant Clinic [address] [place] [address] [address] [place], [place] [phone] [place] [address] (Wo rk) Social History Tobacco [...] Marianne Urias RN - 10/26/2018 9:04 AM WIGS SALESPERSON ISSUE: Refill request for MMF 03/2019 appt [...] to call if further questions or concerns. 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 [address] [place] [address] documented as of this encounter
--- OUTSIDE RECORDS SUMMARY | 2022-07-07 10:45 | XMS_ITS | Encounter Summary ---
:1950 Author Organization [place] Address [facility] [place] [address] Care Team Providers Name Role Phone Momo Forbes Primary Care Provider Reason for Visit Reason Onset Date Comments Refill Request 01/17/2019 Encounter Details Date Type Department Care Team Description 01/17/2019 Refill [facility] Joseph Quintana MD Refill Request Transplant Clinic [address] [place] [address] [address] [place], [place] [phone] [place], [place] [phone] (Wo rk) Social History Tobacco Use Types [...] transplant documented in this encounter Care Teams Heating And Cooling Technician Relationship Specialty Start Date End Date Momo Forbes PCP - General Family Practice 01/02/14 [facility] [address] [place] [address] documented as of this encounter
--- OUTSIDE RECORDS SUMMARY | 2022-07-07 10:45 | XMS_ITS | Encounter Summary ---
:1950 Author Organization [place] Address [address] [place] [address] Care Team Providers Name Role Phone Momo Forbes Primary Care Provider Encounter Details Date Type Department Care Team Description 05/15/2018 Orders Only [facility] Loy Morales MD [facility] [address] [facility] 609 [address] [place], [place] [address] [place] [phone] Social History Tobacco Use Types Packs/Day Years [...] (ABNORMAL) Tacrolimus level (05/15/2018 2:13 PM CDT) [facility] Method Time Signature Tacrolimus Not Provided 05/18/2018 [facility] Last Dose 7:24 AM CDT [facility] Tacrolimus 3.4 (L) 5.0 - 05/18/2018 [facility] Level 15.0 ug/L 7:24 AM CDT [facility] Comment: Tacrolimus Reference Range [...] City/State/[facility] Phon e Number [address] Cyclosporine (05/15/2018 2:13 PM CDT) Component Value Ref Test Analysis Performed At [facility] gist Range Method Time Signature Cyclosporine CANCELLED BY 05/17/2018 [facility] Last Dose BOGDAN KOLB 1:00 PM CDT [facility] 05/17/18 AT CAMP[facility] 1300 BY [place] Comment: CORRECTED ON 05/17 AT 1300: PRE VIOUSLY REPORTED [id number] Cyclosporine Level CANCELLED BY RN 50 - 400 05/17/2018 1:00 [facility] CORTES ug/L PM CDT [facility] ON [facility] 05/17/18 AT 1300 BY [place] Comment: CORRECTED ON 05/17 AT 1300: PRE VIOUSLY REPORTED <25 Specimen Anatomical Collection Method Collection Time Receive d Time (Source) Location / / Volume Laterality 05/15/2018 2:13 PM 8 9:59 CDT AM CDT Orlando Richey MD LAB - BLOOD ORDERABLES Performing Organization Address City/[facility] Phon e Number [address] documented in this encounter Visit Diagnoses Not on filedocumented in this encounter Care Teams Alpine Patroller Relationship Specialty Start Date End Date Momo Forbes PCP - General Family Practice 01/02/14 [facility] [address] [place] [address] documented as of this encounter
--- OUTSIDE RECORDS SUMMARY | 2022-07-07 10:45 | XMS_ITS | Encounter Summary ---
:1950 Author Organization [place] Address [address] [place] [address] Care Team Providers Name Role Phone Momo Forbes Primary Care Provider Reason for Visit Reason Onset Date Comments Transplant 09/12/2017 Encounter Details Date Type Department Care Team Description 09/12/2017 Telephone [facility] Transplant Nazia Jacobson, Transplant Clinic RN [address] [place], [place] [phone] Social History Tobacco Use [...] faxed to [facility] lab. ICULUM MANAGER Telephone Encounter - Nazia Jacobson, RN - 09/12/2017 8:36 AM CURRICULUM MANAGER ISSUE: Hyperglycemia (blood sugar 300-600s w/ last 2 blood draws) Overdue for transplant labs PROPERTY CLERK TASK: Call Diego Guthrie and ask him who is managing his diabetes? Does he have an billet heater operator? He needs to have better blood sugar control, elevated blood sugars can cause damage to his kidney. Remind him that he should be getting transplant labs done monthly. (3 years out from kidney transplant) Send updated lab letter. ICULUM MANAGER documented in this encounter Plan of Treatment Not on filedocumented as of this encounter Visit Diagnoses Not on filedocumented in this encounter Care Teams [employer] Principal Relationship Specialty Start Date End Date Moom Forbes PCP - General Family Practice 01/02/14 [facility] [address] [place] [address] documented as of this encounter
--- OUTSIDE RECORDS SUMMARY | 2022-07-07 10:45 | XMS_ITS | Encounter Summary ---
:1950 Author Organization [place] Address [facility] [place] [address] Care Team Providers Name Role Phone Momo Forbes Primary Care Provider Reason for Visit Reason Onset Date Comments Refill Request 12/22/2018 prograf, mycophenola te (PT IS OUT OF MEDS) Encounter Details Date Type Department Care Team Description 12/22/2018 Refill M [facility] Joseph Quintana Refsid R alenest (prograf, Transplant Clinic MD Herminio mycophenolate (PT IS OUT 909 [facility] SE 717 [facility] SE OF MEDS)) [facility] 353 [facility] 5289 [phone] [place], [place] [phone] ( rk) Social History Tobacco Use Types [...] documented in this encounter Care Teams Hotel Maid Relationship Specialty Start Date End Date Momo Forbes PCP - General Family Practice 01/02/14 [facility] 1999 [place] [address] documented as of this encounter
--- OUTSIDE RECORDS SUMMARY | 2022-07-07 10:45 | XMS_ITS | Encounter Summary ---
:1950 Author Organization [place] Address [facility] [place] [address] Care Team Providers Name Role Phone Momo Forbes Primary Care Provider Reason for Visit Reason Onset Date Comments Transplant Pharmacy Medication Review 01/19/2018 Encounter Details Date Type Department Care Team Description 01/19/2018 Telephone [facility] Beny Staton, Transplant Pharmacy [address] [facility] [place] [address] [facility] [phone] PHARMACY [place], [place] [phone] Social History Tobacco Use Types Packs/Day Years [...] filedocumented in this encounter Care Teams Customer Contact Representative Relationship Specialty Start Date End Date Momo Forbes PCP - General Family Practice 01/02/14 [facility] [address] [place] [address] documented as of this encounter
--- OUTSIDE RECORDS SUMMARY | 2022-07-07 10:45 | XMS_ITS | Encounter Summary ---
:1950 Author Organization [place] Address [address] [place] [address]. [place] [address] Care Team Providers Name Role Phone Momo Forbes Primary Care Provider Reason for Visit Reason Onset Date Comments Refill Request 02/28/2019 Encounter Details Date Type Department Care Team Description 02/28/2019 Refill [facility] Shiva Presley MD Refill Request Nephrology Clinic [facility] [place] [address] [phone] Social History Tobacco Use Types Packs/Day Years [...] disease documented in this encounter Care Teams Solar Energy Technician Relationship Specialty Start Date End Date Momo Forbes PCP - General Family Practice 01/02/14 [facility] [address] [place] [address] documented as of this encounter
--- OUTSIDE RECORDS SUMMARY | 2022-07-07 10:45 | XMS_ITS | Encounter Summary ---
:1950 Author Organization [place] Address [address] [place] [address] Care Team Providers Name Role Phone Momo Forbes Primary Care Provider Reason for Visit Reason Onset Date Comments Transplant Lab 05/16/2019 Encounter Details Date Type Department Care Team Description 05/16/2019 Telephone [facility] Sudhir Fields Trans plant Lab Transplant Clinic Amanda Fletcher RN [address] [place] [address] [phone] Social History Tobacco Use Types Packs/Day [...] CDT Provider Call: Transplant Lab/Orders Route to RIM FIRE CHARGER OPERATOR Post Transplant Days: 1928 When patient is less than 60 days post-transplant, route high priority Reason for Call: updated lab order faxed Liver patients reporting abnormal lab results: Route to RN and Page Document lab facility information when provider is calling about annual lab orders. Delete facility wildcards when not needed. Facility Name: [facility] Facility Location: [place], [place] Outside Facility Callback needed? If needed documented in this encounter Plan of Treatment Not on filedocumented as of this encounter Visit Diagnoses Diagnosis Kidney replaced by transplant - Primary Aftercare following organ transplant Encounter for long-term current use of m edication documented in this encounter Care Teams Advertising Copywriter Relationship Specialty Start Date End Date Momo Forbes PCP - General Family Practice 01/02/14 [facility] [address] [place] [address] documented as of this encounter
--- OUTSIDE RECORDS SUMMARY | 2022-07-07 10:45 | XMS_ITS | Encounter Summary ---
:1950 Author Organization [place] Address [address] [place] [address] Care Team Providers Name Role Phone Momo Forbes Primary Care Provider Reason for Visit Reason Onset Date Comments Transplant Lab 09/06/2018 Encounter Details Date Type Department Care Team Description 09/06/2018 Telephone [facility] Transplant Adonay, Transplant Lab Clinic BOGDAN Lopes [address] [address] [phone] Social History Tobacco Use Types Packs/Day Years Used Date Smoking Tobacco: Former Cigars Quit : 08/22/2006 Smokeless Tobacco: Never Alcohol Use Standard Drinks/Week Comments Yes 0 (1 standard drink = 0.6 oz pure alcoho l) occasional drink. Sex Assigned at Date Recorded Not on file documented as of this encounter Miscellaneous Notes Telephone Encounter - Marianne Urias RN - 09/12/2018 11:58 AM SECURITY PATROL DRIVER Attempted to reach pt again regarding his labs, no answer. Left message for pt to return call. RITY PATROL DRIVER Telephone Encounter - Marianne Urias RN - 09/07/2018 1:30 PM SECURITY PATROL DRIVER Attempted to reach pt again regarding labs, no answer. Left message for pt to return call. RITY PATROL DRIVER Telephone Encounter - Marianne Urias RN - 09/06/2018 12:59 PM SECURITY PATROL DRIVER ISSUE: Creatinine 1.69, up from pt baseline [...] Left message for pt to return call. RITY PATROL DRIVER documented in this encounter Plan of Treatment Not on filedocumented as of this encounter Visit Diagnoses Not on filedocumented in this encounter Care Teams Education Finance Processor Relationship Specialty Start Date End Date Momo Forbes PCP - General Family Practice 01/02/14 [facility] [address] [place] [address] documented as of this encounter
--- OUTSIDE RECORDS SUMMARY | 2022-07-07 10:45 | XMS_ITS | Encounter Summary ---
:1950 Author Organization [place] Address [facility] [place] [address] Care Team Providers Name Role Phone Momo Forbes Primary Care Provider Encounter Details Date Type Department Care Team Description 05/17/[address] [facility] Alana Calderon Afterc are following Transplant employee relations manager organ transplant [address] [place] [address] (Primary Dx) [place] [address] Social History Tobacco Use Types [...] rimary documented in this encounter Care Teams Rn Research Relationship Specialty Start Date End Date Momo Forbes PCP - General Family Practice 01/02/14 [facility] [address] [place] [address] documented as of this encounter
--- OUTSIDE RECORDS SUMMARY | 2022-07-07 10:45 | XMS_ITS | Encounter Summary ---
:1950 Author Organization [place] Address [facility] [place] [address] Care Team Providers Name Role Phone Momo Forbes Primary Care Provider Encounter Details Date Type Department Care Team Description 11/10/2017 [facility] [place] [address] [phone] Social History Tobacco Use Types Packs/Day Years [...] disease documented in this encounter Care Teams Apartment Locator Relationship Specialty Start Date End Date Momo Forbes PCP - General Family Practice 01/02/14 [facility] 2000 [place] [address] documented as of this encounter
--- OUTSIDE RECORDS SUMMARY | 2022-07-07 10:45 | XMS_ITS | Encounter Summary ---
:1950 Author Organization [place] Address [address] [place] [address] Care Team Providers Name Role Phone Momo Forbes Primary Care Provider Reason for Referral Consultation - Closed Specialty Diagnoses / Procedures Referred By Contact Refer red To Contact Diagnoses Obesity Kidney transplanted [facility] 7 [place] [address] Referral ID Status Reason Start Date Expiration Date Visits Requ ested Visits Authorized [id number] Closed 10/17/2018 10/17/2019 1 1 EO EQUIPMENT SALESPERSON Reason for Visit Reason Comments Transplant Encounter Details Date Type Department Care Team Description 10/17/2018 Orders Only [facility] Kavon Nazia Obesity (P rimary Dx); Transplant Clinic BOGDAN Hicks Kidney transplanted 9 [place] [address] Social History Tobacco Use Types [...] transplant documented in this encounter Care Teams Telecommunications Consultant Relationship Specialty Start Date End Date Forbes, Ton PCP - General Family Practice 01/02/14 [facility] [address] [place] [address] documented as of this encounter
--- OUTSIDE RECORDS SUMMARY | 2022-07-07 10:45 | XMS_ITS | Encounter Summary ---
:1950 Author Organization [place] Address [address] [facility] [place] [address] Care Team Providers Name Role Phone Momo Forbes Primary Care Provider Reason for Visit Reason Onset Date Comments Transplant Pharmacy Medication Review 01/10/2019 Encounter Details Date Type Department Care Team Description 01/10/2019 Telephone [facility] Meghan Mccormack Geovanni Transplant Pharmacy [address] [facility] [place] [address] PHARMACY [phone] [place] [address] (Wo rk) Social History Tobacco Use Types [...] on filedocumented in this encounter Care Teams Middleware Engineer Relationship Specialty Start Date End Date Momo Forbes PCP - General Family Practice 01/02/14 [facility] 1999 [place] [address] documented as of this encounter
--- OUTSIDE RECORDS SUMMARY | 2022-07-07 10:45 | XMS_ITS | Encounter Summary ---
:1950 Author Organization [place] Address [address] [place] [address] Care Team Providers Name Role Phone Momo Forbes Primary Care Provider Reason for Visit Reason Onset Date Comments Refill Request 12/19/2017 Encounter Details Date Type Department Care Team Description 12/19/[address] [facility] Joseph Quintana MD Refill Request Transplant Clinic [address] [place] [address] [address] [phone] [place] [address] (Wo rk) Social History Tobacco [...] Fill Date: 11/14/17 Quantity: 60 Janelle Flowers [facility] [phone] documented in this encounter Plan of Treatment Not on filedocumented as of this encounter Visit Diagnoses Diagnosis Kidney transplanted Kidney replaced by transplant documented in this encounter Care Teams Purchase Price Analyst Relationship Specialty Start Date End Date Momo Forbes PCP - General Family Practice 01/02/14 [facility] [address] [place] [address] documented as of this encounter
--- OUTSIDE RECORDS SUMMARY | 2022-07-07 10:45 | XMS_ITS | Encounter Summary ---
:1950 Author Organization [place] Address [facility] [address] Care Team Providers Name Role Phone Momo Forbes Primary Care Provider Encounter Details Date Type Department Care Team Description 08/18/2018 Documentation Only [facility] Josseline Recinos, Transplant Clinic RN 909 [place] [address] Social History Tobacco Use Types [...] letter updated: 08/17/18 Lab orders faxed to: [facility] [phone] (Phone) Lab orders up to date in [facility]. R LINE PHOTO INSPECTOR documented in this encounter Plan of Treatment Not on filedocumented as of this encounter Visit Diagnoses Not on filedocumented in this encounter Care Teams Machine Operations Supervisor Relationship Specialty Start Date End Date Momo Forbes PCP - General Family Practice 01/02/14 [facility] [address] [place], [place] [id number] documented as of this encounter
--- OUTSIDE RECORDS SUMMARY | 2022-07-07 10:45 | XMS_ITS | Encounter Summary ---
:1950 Author Organization [place] Address [facility] [place] [address] Care Team Providers Name Role Phone Momo Forbes Primary Care Provider Reason for Visit Reason Onset Date Comments Refill Request 10/10/2017 mycophenolae Encounter Details Date Type Department Care Team Description 10/10/2017 Refill [facility] Joseph Quintana Refill R equest Transplant Clinic MD Herminio (mycophenolae ) [address] [place] [phone] [place] [address] (Wo rk) Social History Tobacco [...] Fill Date: 09/01/17 Quantity: 180 Janelle Flowers [facility] [phone] MOBILE DRIVER documented in this encounter Plan of Treatment Not on filedocumented as of this encounter Visit Diagnoses Diagnosis Kidney transplanted Kidney replaced by transplant documented in this encounter Care Teams Research Editor Relationship Specialty Start Date End Date Momo Forbes PCP - General Family Practice 01/02/14 [facility] [address] [place] [address] documented as of this encounter
--- OUTSIDE RECORDS SUMMARY | 2022-07-07 10:45 | XMS_ITS | Encounter Summary ---
:1950 Author Organization [place] Address [address] [place] [address] Care Team Providers Name Role Phone Momo Forbes Primary Care Provider Encounter Details Date Type Department Care Team Description 11/03/2017 Orders Only [facility] Loy Morales, Rachid olivia replaced by [facility] MD transplant Laboratory [address] [facility] 500 [facility] 609 [place] [phone] (Wo rk) Social History Tobacco Use Types [...] Results Tacrolimus level (11/03/2017 11:30 AM CDT) [facility] Method Time Signature Tacrolimus Not Provided 11/05/2017 [facility] Last Dose 2:20 PM CDT [facility] Tacrolimus 10.7 5.0 - 11/06/2017 [facility] Level 15.0 ug/L 1:00 PM CDT [facility] Comment: Tacrolimus [...] its performa nce characteristics determined by the [facility], ??Special Chemistry Laboratory. It has not been [...] Phon e Number [facility] 500 [place], [place] [phone] [place] [address] documented in this encounter Visit Diagnoses Diagnosis Kidney replaced by transplant documented in this encounter Care Teams Baccarat Dealer Relationship Specialty Start Date End Date Momo Forbes PCP - General Family Practice 01/02/14 [facility] [address] [place] [address] documented as of this encounter
--- OUTSIDE RECORDS SUMMARY | 2022-07-07 10:45 | XMS_ITS | Encounter Summary ---
:1950 Author Organization [place] Address [address] [place] [address] Care Team Providers Name Role Phone Momo Forbes Primary Care Provider Reason for Visit Reason Comments RECHECK annual Follow up Kidney [place] Encounter Details Date Type Department Care Team Description 10/17/2018 Office Visit [facility] Shiva Presley MD [facility] [place] [address] [facility] 220 [place], [place] [address] Type 2 diabetes mellitus with other spec ified complication, with long-term current use of insulin (H) (Primary Dx); Nephrology Clinic [facility] Kidney/Pancreas Recipient Kidney replaced by transplant; [place] Aftercare following organ tr ansplant; 9[facility] Immunosupp ression (H); SE HTN, kidney transplant relat ed; [place], [place] Severe obesi ty in adult, BMI [...] Comments Blood Pressure 162/77 10/17/2018 1:54 PM ASSOCIATE PROFESSOR OF BIBLICAL STUDIES Pulse 60 10/17/2018 1:54 PM ASSOCIATE PROFESSOR OF BIBLICAL STUDIES Temperature 36.5 ??C (97.7 ??F) 10/17/2018 1:54 PM ASSOCIATE PROFESSOR OF BIBLICAL STUDIES Respiratory Rate - - Oxygen Saturation 94% 10/17/2018 1:54 PM ASSOCIATE PROFESSOR OF BIBLICAL STUDIES Inhaled Oxygen Concentration - - Weight 133.7 kg (294 lb 12.8 oz) 10/17/2018 1:54 PM ASSOCIATE PROFESSOR OF BIBLICAL STUDIES Height - - Body Mass Index 39.98 10/10/2017 2:25 PM ASSOCIATE PROFESSOR OF BIBLICAL STUDIES documented in this encounter Progress Notes Joseph [...] then 50%0. Also offered to refer to cyber special agent. # Mineral Bone Disorder: - Secondary renal [...] PREVIOUSLY REPORTED 1999 MPACID 1.39 MPAG 80.2 CIATE PROFESSOR OF BIBLICAL STUDIES documented in this encounter Nursing Notes Martina [...] kg (294 lb 12.8 oz). Martina Boyle CIATE PROFESSOR OF BIBLICAL STUDIES documented in this encounter Plan of Treatment [...] >40 documented in this encounter Care Teams Communications Maintainer Relationship Specialty Start Date End Date Momo Forbes PCP - General Family Practice 01/02/14 [facility] [address] [place] [address] documented as of this encounter
--- OUTSIDE RECORDS SUMMARY | 2022-07-07 10:45 | XMS_ITS | Encounter Summary ---
:1950 Author Organization [place] Address [address] [place] [address] Care Team Providers Name Role Phone Momo Forbes Primary Care Provider [place] Quintana MD Unavailable Encounter Details Date Type Department Care Team Description 05/16/2019 External Order [facility] Nurse, Santi Txc Afterca re following organ transplant; Results Transplant Clinic Kidney replaced by transplan t; [address] [place] [address] Encounter for long-term [place] [address] Social History Tobacco Use Types [...] procedure are in Kidney replaced by [facility] ts transplant section. Encounter for long-term current use of medication PROTEIN RANDOM URINE Routine 05/16/2019 3:36 PM Aftercare foll owing Results for this CDT organ transplant procedure are in Kidney replaced by the [facility] ts transplant section. Encounter for [...] Estimated >60 >60 LABDE SCAN (if ml/min/1.7 Welsh) 3m2 (External) GFR Estimated 56 (L) >60 [...] documented in this encounter Care Teams Director Home Health Relationship Specialty Start Date End Date Momo Forbes PCP - General Family Practice 01/02/14 [facility] [address] [place] [address] Joseph Quintana, Assigned Nephrology 03/29/21 MD Provider 7 [facility] 353 [facility] 1932 [place] [address] documented as of this encounter
--- OUTSIDE RECORDS SUMMARY | 2022-07-07 10:45 | XMS_ITS | Encounter Summary ---
:1950 Author Organization [place] Address [address] [place] [address] Care Team Providers Name Role Phone Momo Forbes Primary Care Provider Reason for Visit Reason Comments RECHECK Kidney tx follow up Encounter Details Date Type Department Care Team Description 10/10/2017 Office Visit [facility] Shiva Prseley Sta tus post kidney transplant (Primary Dx); Nephrology Clinic Immunosuppression (H); [facility] Type 2 diabetes mellitus wit h stage 3 chronic kidney disease, with long-term current use of insulin (H); [address] [place] [address] Benign essential hypertension; [place] [address] Hyperlipidemia, unspecified hyperlipidemia type; [place], [place] RANJAN 220 Skin cancer screening [phone] [place] [address] (Wo rk) Social History Tobacco [...] Comments Blood Pressure 153/74 10/10/2017 2:25 PM AIR BATTLE MANAGER Pulse 55 10/10/2017 2:25 PM AIR BATTLE MANAGER Temperature 36.7 ??C (98.1 ??F) 10/10/2017 2:25 PM AIR BATTLE MANAGER Respiratory Rate - - Oxygen Saturation 98% 10/10/2017 2:25 PM AIR BATTLE MANAGER Inhaled Oxygen Concentration - - Weight 135.4 kg (298 lb 6.4 oz) 10/10/2017 2:25 PM AIR BATTLE MANAGER Height 182.9 cm (6') 10/10/2017 2:25 PM AIR BATTLE MANAGER Body Mass Index 40.47 10/10/2017 2:25 PM AIR BATTLE MANAGER documented in this encounter Progress Notes [...] is well as a referral to his director of physician practices for monitoring for any skin cancers. 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 BATTLE MANAGER documented in this encounter Nursing Notes [...] oz). Medication Reconciliation: amparo ZURITA CMA . BATTLE MANAGER documented in this encounter Plan of [...] skin documented in this encounter Care Teams Patient Registration Clerk Relationship Specialty Start Date End Date Momo Forbes PCP - General Family Practice 01/02/14 [facility] [address] [place] [address] documented as of this encounter
--- OUTSIDE RECORDS SUMMARY | 2022-07-07 10:45 | XMS_ITS | Encounter Summary ---
:1950 Author Organization [place] Address [address] [place] [address] Care Team Providers Name Role Phone Momo Forbes Primary Care Provider Joseph Quintana MD Unavailable Encounter Details Date Type Department Care Team Description 05/15/2018 External Order Results [facility] Nurse, [facility] Transplant Clinic 9 [place] [address] Social History Tobacco Use Types [...] 54 (L) >60 LABDE SCAN (if ml/min/1.7 Bolivian) 3m2 (External) GFR Estimated 44 (L) >60 [...] filedocumented in this encounter Care Teams Fruit Trimmer Relationship Specialty Start Date End Date Momo Forbes PCP - General Family Practice 01/02/14 [facility] [address] [place] [address] Joseph Quintana, Assigned Nephrology 03/29/21 MD Provider 717 [facility] 353 [facility] 1932 [place] [address] documented as of this encounter
--- OUTSIDE RECORDS SUMMARY | 2022-07-07 10:45 | XMS_ITS | Encounter Summary ---
:1950 Author Organization [place] Address [address] [address] Care Team Providers Name Role Phone Momo Forbes Primary Care Provider Joseph Quintana MD Unavailable Encounter Details Date Type Department Care Team Description 09/09/2017 External Order [facility] Nurse, [place] Kidney replaced by Results Transplant Clinic transplant [address] [place] [phone] Social History Tobacco Use Types Packs/Day [...] 07/15/2017 10:48 AM Result s for this MANUAL WINDER procedure are i n the results section. BASIC METABOLIC Routine 07/15/2017 10:48 AM Kidney replaced by Results for this PANEL MANUAL WINDER transplant procedure are i n the results [...] Results (ABNORMAL) Hemoglobin A1c (07/15/2017 10:48 AM MANUAL WINDER) Patholo gist Method Time Signature Hemoglobin A1C >14.0 (H) <=6.4 % LABDE SCAN (External) Specimen (Source) Anatomical Collection Method Collection Time Re ceived Time Location / / Volume Laterality Blood specimen 07/15/2017 10:48 (specimen) AM MANUAL WINDER Narrative JESSICA PFT - 09/09/2017 9:36 PM MANUAL WINDER Verified by Sharon Martinez on 8. Patient Reported LAB - BLOOD ORDERABLES Performing Organization Address City/State/ZIP Code Phon e Number JESSICA PFT LABDE SCAN (ABNORMAL) Basic metabolic panel (07/15/2017 10:48 AM MANUAL WINDER) Analysis Performed At Patho logist Time Signature [...] 55 (L) >60 LABDE SCAN (if ml/min/1.7 Monegasque) 3m2 (External) GFR Estimated 46 (L) >60 LABDE SCAN (External) ml/min/1.7 3m2 Specimen (Source) Anatomical Collection Method Collection Time Re ceived Time Location / / Volume Laterality Blood specimen 07/15/2017 10:48 (specimen) AM MANUAL WINDER Narrative BREEZE PFT - 09/09/2017 9:36 PM MANUAL WINDER Verified by Sharon Martinez on 8. [place] [...] Narrative BREEZE PFT - 09/09/2017 9:39 PM MANUAL WINDER Verified by Sharon Martinez on 8. Patient [...] Narrative BREEZE PFT - 09/09/2017 9:39 PM MANUAL WINDER Verified by Sharon Martinez on 8. [place] [...] 51 (L) >60 LABDE SCAN (if ml/min/1.7 Monegasque) 3m2 (External) GFR Estimated 42 (L) >60 LABDE SCAN (External) ml/min/1.7 3m2 Specimen (Source) Anatomical Collection Method Collection Time Re ceived Time Location / / Volume Laterality Blood specimen 05/30/2017 9:32 AM (specimen) CDT Narrative BREEZE PFT - 09/09/2017 9:39 PM MANUAL WINDER Verified by Sharon Martinez on 8. [place] [...] Narrative BREEZE PFT - 09/09/2017 9:44 PM MANUAL WINDER Verified by Sharon Martinez on 8. Patient Reported LAB - BLOOD ORDERABLES Performing Organization Address City/[facility]/ZIP Code Phon e Number BREEZE PFT [...] Narrative BREEZE PFT - 09/09/2017 9:44 PM MANUAL WINDER Verified by Sharon Martinez on 8. Patient Reported LAB - BLOOD ORDERABLES Performing Organization Address City/[facility] Code Phon e Number BREEZE PFT LABDE SCAN (ABNORMAL) Hemoglobin A1c (01/19/2017 9:30 AM CDT) Analysis Performed At [facility] logist Time Signature Hemoglobin A1C 12.4 (H) <=6.4 % LABDE SCAN (External) Specimen (Source) Anatomical Collection Method Collection Time Re ceived Time Location / / Volume Laterality Blood specimen 01/19/2017 9:30 AM (specimen) CDT Narrative BREEZE PFT - 09/09/2017 9:44 PM MANUAL WINDER Verified by Sharon Martinez on 8. Patient Reported LAB - BLOOD ORDERABLES Performing Organization Address City/[facility]/ZIP Code Phon e Number BREEZE PFT [...] 55 (L) >60 LABDE SCAN (if ml/min/1.7 Monegasque) 3m2 (External) GFR Estimated 46 (L) >60 LABDE SCAN (External) ml/min/1.7 3m2 Specimen (Source) Anatomical Collection Method Collection Time Re ceived Time Location / / Volume Laterality Blood specimen 01/19/2017 9:30 AM (specimen) CDT Narrative JESSICA PFT - 09/09/2017 9:44 PM MANUAL WINDER Verified by Sharon Martinez on 8. Patient Reported LAB - BLOOD ORDERABLES Performing Organization Address City/State/ZIP Code Phon e Number BREEZE PFT LABDE SCAN documented in this encounter Visit Diagnoses Diagnosis Kidney replaced by transplant documented in this encounter Care Teams Market Research Specialist Relationship Specialty Start Date End Date Momo Forbes PCP - General Family Practice 01/02/14 [facility] [address] [place] [address] Joseph Quintana, Assigned Nephrology 03/29/21 MD Provider [address] [place] [address] 353 [facility] [address] [place] [address] documented as of this encounter
--- OUTSIDE RECORDS SUMMARY | 2022-07-07 10:45 | XMS_ITS | Encounter Summary ---
:1950 Author Organization [place] Address [address] [place] [address] Care Team Providers Name Role Phone Momo Forbes Primary Care Provider Joseph Quintana MD Unavailable Encounter Details Date Type Department Care Team Description 09/04/2018 External Order Results [facility] Nurse, [facility] Transplant Clinic [address] [place] [address] Social History Tobacco Use Types [...] 2:50 PM R esults for this DIFFERENTIAL FIRE EXTINGUISHER INSTALLER procedure are i n the results section. BASIC METABOLIC PANEL Routine 09/04/2018 2:50 PM Results for this FIRE EXTINGUISHER INSTALLER procedure are i n the results section. PROTEIN RANDOM URINE Routine 09/04/2018 2:49 PM R esults for this FIRE EXTINGUISHER INSTALLER procedure are i n the results section. documented in this encounter Results (ABNORMAL) CBC with platelets differential (09/04/2018 2:50 PM FIRE EXTINGUISHER INSTALLER) [facility] Method Time [...] Laterality Blood specimen 09/04/2018 2:50 PM (specimen) FIRE EXTINGUISHER INSTALLER Narrative JESSICA PFT - 09/06/2018 9:13 AM FIRE EXTINGUISHER INSTALLER Verified by Cassie Florian on 09/06/2018. Patient Reported LAB - BLOOD ORDERABLES Performing Organization Address City/State/ZIP Code Phon e Number ZACHERYTYLER PFT LABDE SCAN (ABNORMAL) Basic metabolic panel (09/04/2018 2:50 PM FIRE EXTINGUISHER INSTALLER) Analysis Performed At Patho logist Time [...] 49 (L) >60 LABDE SCAN (if ml/min/1.7 Norwegian) 3m2 (External) GFR Estimated 41 (L) >60 LABDE SCAN (External) ml/min/1.7 3m2 Specimen (Source) Anatomical Collection Method Collection Time Re ceived Time Location / / Volume Laterality Blood specimen 09/04/2018 2:50 PM (specimen) FIRE EXTINGUISHER INSTALLER Narrative BREEZE PFT - 09/06/2018 9:13 AM FIRE EXTINGUISHER INSTALLER Verified by Cassie Florian on 09/06/2018. Patient Reported LAB - BLOOD ORDERABLES Performing Organization Address City/State/ZIP Code Phon e Number BREEZE PFT LABDE SCAN (ABNORMAL) Protein random urine with Creat Ratio (09/04/2018 2:49 PM FIRE EXTINGUISHER INSTALLER) P athologist Signature Protein Random 72 (H) 1 - 14 LABDE SCAN Urine mg/dL (External) Creatinine 104.0 63.0 - LABDE SCAN Urine mg/dL 166.0 (External) mg/dL Protein Total 0.7 (H) <0.2 LABDE SCAN Ur per Cr (External) Specimen (Source) Anatomical Collection Method Collection Time Re ceived Time Location / / Volume Laterality Urine specimen 09/04/2018 2:49 PM (specimen) FIRE EXTINGUISHER INSTALLER Narrative BREEZE PFT - 09/06/2018 9:13 AM FIRE EXTINGUISHER INSTALLER Verified by Cassie Florian on 09/06/2018. Patient Reported LAB - URINE ORDERABLES Performing Organization Address City/State/ZIP Code Phon e Number BREEZE PFT LABDE SCAN documented in this encounter Visit Diagnoses Not on filedocumented in this encounter Care Teams Scabbler Relationship Specialty Start Date End Date Momo Forbes PCP - General Family Practice 01/02/14 [facility] [address] [place] [address] Joseph Quintana, Assigned Nephrology 03/29/21 MD Provider [address] [place] [address] [address] [place] [address] documented as of this encounter
--- OUTSIDE RECORDS SUMMARY | 2022-07-07 10:45 | XMS_ITS | Encounter Summary ---
:1950 Author Organization [place] Address [address] [place] [address] Care Team Providers Name Role Phone ForbesMomo Primary Care Provider Reason for Visit Reason Onset Date Comments Appointment 08/24/2018 Encounter Details Date Type Department Care Team Description 08/24/2018 Telephone [facility] Nephrology Romi Garcia RN Appointment [facility] [phone] ([facility]) [address] [place] [address] [phone] Social History Tobacco Use Types Packs/Day [...] patient to call back. Romi Rodriguez RN E PLANER OPERATOR Telephone Encounter - Romi Rodriguez RN - 08/24/2018 1:54 PM CST Left voicemail for patient to call back (follow up from last transplant appointment). Roim Rodriguez RN E PLANER OPERATOR documented in this encounter Plan of Treatment Not on filedocumented as of this encounter Visit Diagnoses Not on filedocumented in this encounter Care Teams Deputy Commonwealth'S Attorney Relationship Specialty Start Date End Date Momo Forbes PCP - General Family Practice 01/02/14 [facility] [address] [place] [address] documented as of this encounter
--- OUTSIDE RECORDS SUMMARY | 2022-07-07 10:45 | XMS_ITS | Encounter Summary ---
:1950 Author Organization [place] Address [address] [place] [address] Care Team Providers Name Role Phone ForbesMomo Primary Care Provider Reason for Visit Reason Onset Date Comments Transplant 11/07/2017 Encounter Details Date Type Department Care Team Description 11/07/2017 Telephone [facility] Transplant aNzia Jacobson, Transplant Clinic RN [address] [place], [place] [phone] Social History Tobacco Use [...] range, repeat tac level in 1 week. INSIDE SALES COORDINATOR TASK: Call patient with instructions per plan. Enter lab orders if needed. documented in this encounter Plan of Treatment Not on filedocumented as of this encounter Visit Diagnoses Not on filedocumented in this encounter Care Teams Coal Cutting Machine Operator Relationship Specialty Start Date End Date Momo Forbes PCP - General Family Practice 01/02/[address] [address] documented as of this encounter
--- OUTSIDE RECORDS SUMMARY | 2022-07-07 10:45 | XMS_ITS | Encounter Summary ---
:1950 Author Organization [place] Address [facility] [place] [address] Care Team Providers Name Role Phone Momo Forbes Primary Care Provider Reason for Visit Reason Onset Date Comments Transplant 08/31/2017 Encounter Details Date Type Department Care Team Description 08/31/[address] [facility] Transplant Amanda aGrduno Transplant Clinic M, RN [address] [place] [address] [phone] Social History Tobacco Use Types Packs/Day [...] filedocumented in this encounter Care Teams Cloth Winder Relationship Specialty Start Date End Date Momo Forbes PCP - General Family Practice 01/02/14 [facility] [address] [place] [address] documented as of this encounter
--- OUTSIDE RECORDS SUMMARY | 2022-07-07 10:45 | XMS_ITS | Encounter Summary ---
:1950 Author Organization [place] Address [address] [facility] [place] [address] Care Team Providers Name Role Phone Momo Forbes Primary Care Provider Reason for Visit Reason Onset Date Comments Appointment 10/05/2017 Encounter Details Date Type Department Care Team Description 10/05/2017 Telephone [facility] Shiva Presley MD Appointment Nephrology Clinic [facility] [address] [place] [phone] Social History Tobacco Use Types Packs/Day Years [...] or concernsahead of appointment. Romi Rodriguez RN LASTER documented in this encounter Plan of Treatment Not on filedocumented as of this encounter Visit Diagnoses Not on filedocumented in this encounter Care Teams Lard Renderer Relationship Specialty Start Date End Date Momo Forbes PCP - General Family Practice 01/02/14 [facility] [address] [place] [address] documented as of this encounter
--- OUTSIDE RECORDS SUMMARY | 2022-07-07 10:45 | XMS_ITS | Encounter Summary ---
:1950 Author Organization [place] Address [facility] [place] [address] Care Team Providers Name Role Phone Momo [...] on filedocumented in this encounter Care Teams Valving Machine Operator Relationship Specialty Start Date End Date Momo Forbes PCP - General Family Practice 01/02/14 [facility] [address] [place] [address] documented as of this encounter
--- OUTSIDE RECORDS SUMMARY | 2022-07-07 10:45 | XMS_ITS | Encounter Summary ---
:1950 Author Organization [place] Address [facility]0 [facility] [place] [address] Care Team Providers Name Role Phone Momo [...] on filedocumented in this encounter Care Teams Messaging Architect Relationship Specialty Start Date End Date Momo Forbes PCP - General Family Practice 01/02/14 [facility] [address] [place] [address] documented as of this encounter
--- OUTSIDE RECORDS SUMMARY | 2022-07-07 10:45 | XMS_ITS | Encounter Summary ---
:1950 Author Organization [place] Address [facility] [place] [address] Care Team Providers Name Role Phone Momo Forbes Primary Care Provider Reason for Visit Reason Onset Date Comments Erroneous encounter-disregard 05/17/2018 Encounter Details Date Type Department Care Team Description 05/17/2018 Telephone [facility] Etcheverry, Erroneous Transplant Clinic BOGDAN Lopes encounter-disregard [address] [place] [phone] Social History Tobacco Use Types Packs/Day [...] on filedocumented in this encounter Care Teams Submarine Advisory Team Watch Officer Relationship Specialty Start Date End Date Momo Forbes PCP - General Family Practice 01/02/14 [facility] [address] [place] [address] documented as of this encounter
--- OUTSIDE RECORDS SUMMARY | 2022-07-07 10:45 | XMS_ITS | Encounter Summary ---
:1950 Author Organization [place] Address [facility] [place] [address] Care Team Providers Name Role Phone Momo Forbes Primary Care Provider Reason for Visit Reason Onset Date Comments Refill Request 10/11/2017 Encounter Details Date Type Department Care Team Description 10/11/2017 Refill [facility] Transplant Debbie Calderon LPN Refill Request Clinic [address] [place] [address] [phone] Social History Tobacco Use Types Packs/Day [...] transplant documented in this encounter Care Teams Drop Clipper Relationship Specialty Start Date End Date Momo Forbes PCP - General Family Practice 01/02/14 [facility] [address] [place] [address] documented as of this encounter
--- OUTSIDE RECORDS SUMMARY | 2022-07-07 10:46 | XMS_ITS | Encounter Summary ---
:[address] [place] Address [address] [place] [address] Care Team Providers Name Role Phone ForbesMomo Primary Care Provider Reason for Visit Reason Onset Date Comments Transplant 06/01/2017 [place] returning call Left on 06/05/17 Encounter Details Date Type Department Care Team Description 06/01/2017 Telephone [facility] Shiva Kahn, nutritional services cook ([place] Transplant Clinic [facility] returning call Left [address] on 06/05/17) [place], [place] [phone] [place], [place] [phone] Social History Tobacco Use Types Packs/Day [...] VM to call him on Tuesday06/06/17. ADDENDUM: EXPRESSIVE MUSIC THERAPIST TASK: Call with questions and instruction per [...] filedocumented in this encounter Care Teams Biology Tutor Relationship Specialty Start Date End Date Momo Forbes PCP - General Family Practice 01/02/[address] [address] documented as of this encounter
--- OUTSIDE RECORDS SUMMARY | 2022-07-07 10:46 | XMS_ITS | Encounter Summary ---
:1950 Author Organization [place] Address [facility] hospital0 [facility] [place] [address] Care Team Providers Name Role Phone Momo Forbes Primary Care Provider Reason for Visit Reason Onset Date Comments Transplant 12/02/2016 refill Encounter Details Date Type Department Care Team Description 12/02/2016 Refill [facility] Anita Joshi MD Transplant (refill) Nephrology Clinic [address] [place] [address] (Wo rk) [phone] Social History Tobacco Use Types Packs/Day Years [...] documented in this encounter Care Teams Deputy Sheriff K9 Handler Relationship Specialty Start Date End Date Momo Forbes PCP - General Family Practice 01/02/14 [facility] [address] [place] [address] documented as of this encounter
--- OUTSIDE RECORDS SUMMARY | 2022-07-07 10:46 | XMS_ITS | Encounter Summary ---
:1950 Author Organization [place] Address [address] [facility] [place] [address] Care Team Providers Name Role Phone Momo Forbes Primary Care Provider Reason for Visit Reason Onset Date Comments Pre Visit Planning - Unable To Reach 10/14/2016 Encounter Details Date Type Department Care Team Description 10/14/2016 Telephone [facility] Anita Joshi MD Pre Visit Planning - Nephrology Clinic [address] [place] [address] [place] [facility] To Reach [address] [address] [phone] Social History Tobacco Use Types Packs/Day Years Used Date Smoking Tobacco: Former Cigars Quit : 08/22/2006 Smokeless Tobacco: Never Alcohol Use Standard Drinks/Week Comments Yes 0 (1 standard drink = 0.6 oz pure alcoho l) occasional drink. Sex Assigned at Date Recorded Not on file documented as of this encounter Miscellaneous Notes Telephone Encounter - Monroe Zurita HYDROTECHNICAL SPECIALIST - 10/14/2016 10:56 AM CST Ezekiel, this is office from Clinic [facility] at the [facility]. We are calling to remind you of your upcoming Nephrology appointment on 10/25/16 at 440pm. Please arrive about 1 hours prior to your appointment time for labs. Also, please bring an updated medication list or your labeled medication bottles with you to your appointment. If you have any questions or would like to cancel or reschedule your appointment, please call us at [phone]. You are welcome to have your labs done up to a week before your appointment at any [place] or [facility] facility. If you have your labs completed before your appointment, please still come 30 minutes early for check-in MONROE ZURITA CMA TOP ADMINISTRATOR documented in this encounter Plan of Treatment Not on filedocumented as of this encounter Visit Diagnoses Not on filedocumented in this encounter Care Teams Nail Making Machine Setter Relationship Specialty Start Date End Date Momo Forbes PCP - General Family Practice 01/02/14 [facility] [address] [place] [address] documented as of this encounter
--- OUTSIDE RECORDS SUMMARY | 2022-07-07 10:46 | XMS_ITS | Encounter Summary ---
:1950 Author Organization [place] Address [address] [place] [address] Care Team Providers Name Role Phone Momo Forbes Primary Care Provider Encounter Details Date Type Department Care Team Description 01/19/2017 Orders Only [facility] Loy Morales, Aft ercare following organ transplant; [facility] Kidney replaced by transplant; Laboratory [address] [facility] Encounter for long-term curr ent use of medication [address] [place] [address] [phone] (Wo rk) Social History Tobacco Use Types [...] Results Tacrolimus level (01/19/2017 9:25 AM CDT) [facility] Method Time Signature Tacrolimus Last 0800 [facility] Dose 01/19/17 [facility] Tacrolimus 6.5 5.0 - [facility] 15.0 ug/L [facility] Comment: [...] its perform ance characteristics determined by the [facility], ??Special Chemistry Laboratory. It has [...] Address City/State/ZIP Code Phon e Number [address] [address], [facility] documented in this encounter Visit Diagnoses Diagnosis Aftercare following organ transplant Kidney replaced by transplant Encounter for long-term current use of m edication documented in this encounter Care Teams Volunteer Recruitment Coordinator Relationship Specialty Start Date End Date Momo Forbes PCP - General Family Practice 01/02/14 [facility] [address] [place] [address] documented as of this encounter
--- OUTSIDE RECORDS SUMMARY | 2022-07-07 10:46 | XMS_ITS | Encounter Summary ---
:1950 Author Organization [place] Address [address] [place] [address] Care Team Providers Name Role Phone Forbes, Momo He Primary Care Provider Encounter Details Date Type Department Care Team Description 05/30/2017 Hospital [facility] [place], [facility] [address] [address] [phone] (Wo rk) Social History Tobacco Use Types [...] filedocumented in this encounter Care Teams Control Analyst Relationship Specialty Start Date End Date Momo Forbes PCP - General Family Practice 01/02/14 [facility] [address] [place] [address] documented as of this encounter
--- OUTSIDE RECORDS SUMMARY | 2022-07-07 10:46 | XMS_ITS | Encounter Summary ---
:1950 Author Organization [place] Address [address] [place] [address] Care Team Providers Name Role Phone Momo Forbes Primary Care Provider Encounter Details Date Type Department Care Team Description 05/31/2017 Orders Only [facility] Loy Morales, Kid olivia replaced by [facility] MD transplant Laboratory [address] [facility] 500 [facility] [address] [place] [phone] (Wo rk) Social History Tobacco Use Types [...] (ABNORMAL) Tacrolimus level (05/30/2017 1:01 PM CDT) [facility] Method Time Signature Tacrolimus Last 05/29/17 05/31/2017 [facility] Dose 1930 1:05 PM CDT [facility] Tacrolimus 3.0 (L) 5.0 - 05/31/2017 [facility] Level 15.0 ug/L 7:54 PM CDT [facility] Comment: Tacrolimus Reference Range Kidney Transplant [...] its performa nce characteristics determined by the [facility] [...] Phon e Number [facility] [address] [place] [address] [facility] documented in this encounter Visit Diagnoses Diagnosis Kidney replaced by transplant documented in this encounter Care Teams Copy Chief Relationship Specialty Start Date End Date Momo Forbes PCP - General Family Practice 01/02/14 [facility] [address] [place] [address] documented as of this encounter
--- OUTSIDE RECORDS SUMMARY | 2022-07-07 10:46 | XMS_ITS | Encounter Summary ---
:1950 Author Organization [place] Address [facility] [place] [address] Care Team Providers Name Role Phone Momo Forbes Primary Care Provider Reason for Visit Reason Onset Date Comments Refill Request 08/31/2017 mycophenolate Encounter Details Date Type Department Care Team Description 08/31/2017 Refill [facility] Mariano, Joseph Refill R equest Transplant Clinic MD Herminio (mycophenolate) [address] [place] [address] [phone] [place] [address] (Wo rk) Social History Tobacco [...] transplant documented in this encounter Care Teams Optics Technical Officer Relationship Specialty Start Date End Date Momo Forbes PCP - General Family Practice 01/02/14 [facility] [address] [place], [place] [address] documented as of this encounter
--- OUTSIDE RECORDS SUMMARY | 2022-07-07 10:46 | XMS_ITS | Encounter Summary ---
:1950 Author Organization [place] Address [facility] [place] [address] Care Team Providers Name Role Phone Momo Forbes Primary Care Provider Reason for Visit Reason Onset Date Comments Transplant 05/26/2017 refill Encounter Details Date Type Department Care Team Description 05/26/2017 Refill [facility] Anita Joshi MD Transplant (refill) Nephrology Clinic [address] [place] [address] (Wo rk) [address] [phone] Social History Tobacco Use Types Packs/Day Years [...] transplant documented in this encounter Care Teams Turkey Picker Relationship Specialty Start Date End Date Momo Forbes PCP - General Family Practice 01/02/14 [facility] [address] [place] [address] documented as of this encounter
--- OUTSIDE RECORDS SUMMARY | 2022-07-07 10:46 | XMS_ITS | Encounter Summary ---
:1950 Author Organization [place] Address [facility] [place] [address] Care Team Providers Name Role Phone Momo Forbes Primary Care Provider Reason for Visit Reason Onset Date Comments Transplant Pharmacy Medication Review 01/26/2017 Encounter Details Date Type Department Care Team Description 01/26/2017 Telephone [facility] Janes Rodriguez, Transplant Pharmacy [address] [facility] [place] [phone] Social History Tobacco Use Types Packs/Day Years [...] on filedocumented in this encounter Care Teams Brain Picker Relationship Specialty Start Date End Date Momo Forbes PCP - General Family Practice 01/02/14 [facility] [address] [place] [address] documented as of this encounter
--- OUTSIDE RECORDS SUMMARY | 2022-07-07 10:46 | XMS_ITS | Encounter Summary ---
:1950 Author Organization [place] Address [facility] [place] [facility] [place] [address] Care Team Providers Name Role Phone Momo Forbes Primary Care Provider Reason for Visit Reason Onset Date Comments Refill Request 06/28/2017 mycophenolate Encounter Details Date Type Department Care Team Description 06/28/2017 Refill M [facility] Joseph Quintana Refill R equest Transplant Clinic MD Herminio (mycophenolate) [address] [place] [address] [phone] [place] [address] (Wo rk) Social History Tobacco [...] Fill Date: 05/31/17 Quantity: 180 Janelle Lionel [facility] [phone] ICATIONS SYSTEM ANALYST documented in this encounter Plan of Treatment Not on filedocumented as of this encounter Visit Diagnoses Diagnosis Kidney transplanted - Primary Kidney replaced by transplant documented in this encounter Care Teams Inspector Tester Sorter Relationship Specialty Start Date End Date Momo Forbes PCP - General Family Practice 01/02/14 [facility] [address] [place] [address] documented as of this encounter
--- OUTSIDE RECORDS SUMMARY | 2022-07-07 10:46 | XMS_ITS | Encounter Summary ---
:1950 Author Organization [place] Address [address] [place] [address]. [place] [address] Care Team Providers Name Role Phone Momo Forbes Primary Care Provider Encounter Details Date Type Department Care Team Description 03/23/2017 Orders Only [facility] Rossi, Estefania [place] replaced by Nephrology Clinic transplant (Primary [address] Dx) [address] [place] [phone] Social History Tobacco Use Types Packs/Day Years [...] Primary documented in this encounter Care Teams Court Worker Relationship Specialty Start Date End Date Momo Forbes PCP - General Family Practice 01/02/14 [facility] [address] [place] [address] documented as of this encounter
--- OUTSIDE RECORDS SUMMARY | 2022-07-07 10:46 | XMS_ITS | Encounter Summary ---
:1950 Author Organization [place] Address [address] [place] [address] Care Team Providers Name Role Phone Momo Forbes Primary Care Provider Encounter Details Date Type Department Care Team Description 10/25/2016 [facility] Only [facility] Th[facility]ocyt[facility] (H[facility] [facility] SE Aftercare following organ tr ansplant; 1st Floor Kidney replaced by transplan t; [place], [place] Encounter fo r long-term current use [...] Thrombocytopenia (H) Resu lts for this PM PLATE SHOP HELPER procedure are i n the results section. BASIC METABOLIC Routine 10/25/2016 3:54 Aftercare following Re sults for this PANEL PM PLATE SHOP HELPER organ transplant procedure are in Kidney [facility] transplant section. Encounter for long-term current use of medication CBC WITH PLATELETS Routine 10/25/2016 3:54 Aftercare following Results for this PM PLATE SHOP HELPER organ transplant procedure are in Kidney replaced by [facility] transplant section. Encounter for long-term current use of medication PROTEIN RANDOM Routine 10/25/2016 3:52 Aftercare following Res ults for this URINE PM PLATE SHOP HELPER organ transplant procedure are in Kidney replaced by [facility] ts transplant section. Encounter for long-term current use of medication CREATININE URINE Routine 10/25/2016 3:52 Thrombocytopenia (H) Results for this CALCULATION ONLY PM PLATE SHOP HELPER procedure a re in (LAB ONLY) the results section. documented in this encounter Results (ABNORMAL) Basic metabolic panel (10/25/2016 3:54 PM PLATE SHOP HELPER) Patholo gist Method Time Signature Sodium 142 133 - 144 [facility] mmol/L [facility] Potassium 4.2 3.4 - 5.3 [facility] mmol/L [facility] Chloride 108 94 - 109 [facility] mmol/L [facility] Carbon Dioxide 28 20 - 32 [facility] mmol/L [facility] Anion Gap 7 3 - 14 [facility] mmol/L [facility] Glucose 120 (H) 70 - 99 [facility] mg/dL [facility] Urea Nitrogen 19 7 - 30 [facility] mg/dL [facility] Creatinine 1.39 (H) 0.66 - [facility] 1.25 mg/dL [facility] GFR Estimate 51 (L) >60 [facility] mL/min/1.7 [place] m2 [facility] Comment: Non GFR Calc GFR Estimate If Black 62 >60 mL/min/1.7m2 [facility] Comment: GFR Calc Calcium 9.4 8.5 - 10.1 mg/dL [facility] Specimen Anatomical Collection Method Collection Time Receive d Time (Source) Location / / Volume Laterality Blood specimen 10/25/2016 3:54 PM 017 3:55 (specimen) PLATE SHOP HELPER PM PLATE SHOP HELPER Chucho Joshi MD LAB - BLOOD ORDERABLES Performing Organization Address City/State/ZIP Code Phon e Number [address] [address] [facility] (ABNORMAL) CBC with platelets (10/25/2016 3:54 PM PLATE SHOP HELPER) Analysis Performed At Patho logist Time Signature WBC 5.1 4.0 - 11.0 [facility] 10e9/L [facility] RBC Count 5.50 4.4 - 5.9 [facility] 10e12/L [facility] Hemoglobin 15.5 13.3 - [facility] 17.7 g/dL [facility] Hematocrit 46.0 40.0 - [facility] 53.0 % [facility] MCV 84 78 - 100 [facility] fl [facility] MCH 28.2 26.5 - [facility] 33.0 pg [facility] MCHC 33.7 31.5 - [facility] 36.5 g/dL [facility] RDW 14.1 10.0 - [facility] 15.0 % [facility] Platelet Count 124 (L) 150 - 450 [facility] 10e9/L [facility] Specimen Anatomical Collection Method Collection Time Receive d Time (Source) Location / / Volume Laterality Blood specimen 10/25/2016 3:54 PM 017 3:55 (specimen) PLATE SHOP HELPER PM PLATE SHOP HELPER Chucho Joshi MD LAB - BLOOD ORDERABLES Performing Organization Address City/[facility]/ZIP Code Phon e Number [address] [address] [facility] Folate RBC (10/25/2016 3:54 PM PLATE SHOP HELPER) athologist Signature HCT Within 46.0 % [facility] Past 24h [facility] Folate RBC 663 ng/mL [facility] Comment: Reference range: >=366 (Note) Performed by [facility], [address] [place] [id number] [email or web address], Geoff Reed MD, Lab. Director Specimen Anatomical Collection Method Collection Time Receive d Time (Source) Location / / Volume Laterality Blood specimen 10/25/2016 3:54 PM 017 3:55 (specimen) PLATE SHOP HELPER PM PLATE SHOP HELPER Chucho Joshi MD LAB - BLOOD ORDERABLES Performing Organization Address City/State/ZIP Code Phon e Number [address] [address] [facility] Creatinine urine calculation only (10/25/2016 3:52 PM PLATE SHOP HELPER) P athologist Signature Creatinine 152 mg/dL [facility] Specimen Anatomical Collection Method Collection Time Receive d Time (Source) Location / / Volume Laterality 10/25/2016 3:52 PM 7 4:12 PLATE SHOP HELPER PM PLATE SHOP HELPER Chucho Joshi MD LAB - URINE ORDERABLES Performing Organization Address City/State/ZIP Code Phon e Number M [facility] [address] [place] [address] [phone] [facility] [address] [place] [address], [place] [phone] (ABNORMAL) Protein random urine (10/25/2016 3:52 PM PLATE SHOP HELPER) Analysis Performed At Patho logist Time Signature Protein Random 0.48 g/L [facility] Urine [facility] Protein Total 0.31 (H) 0 - 0.2 [facility] Urine g/gr g/g Cr [facility] Specimen Anatomical Collection Method Collection Time Receive d Time (Source) Location / / Volume Laterality Urine specimen 10/25/2016 3:52 PM 017 4:12 (specimen) PLATE SHOP HELPER PM PLATE SHOP HELPER Chucho Joshi MD LAB - URINE ORDERABLES Performing Organization Address City/State/ZIP Code Phon e Number [facility] [address] [address] [facility] [address] [place] [address], [place] [phone] documented in this encounter Visit Diagnoses Diagnosis Thrombocytopenia (H) Thrombocytopenia, unspecified Aftercare following organ transplant Kidney replaced by transplant Encounter for long-term current use of m edication documented in this encounter Care Teams Senior Market Research Analyst Relationship Specialty Start Date End Date Momo Forbes PCP - General Family Practice 01/02/14 [facility] [address] [place] [address] documented as of this encounter
--- OUTSIDE RECORDS SUMMARY | 2022-07-07 10:46 | XMS_ITS | Encounter Summary ---
:1950 Author Organization [place] Address [address] [place] [address] Care Team Providers Name Role Phone Momo Forbes Primary Care Provider Encounter Details Date Type Department Care Team Description 07/15/2017 Orders Only [facility] Loy Morales Kid olivia [facility] by [facility] [place] [facility] Laboratory [address] [facility] 500 [facility] 609 [place] [phone] (Wo rk) Social History Tobacco Use Types [...] by Results for this MASS SPECTROMETRY AM PASSEMENTERIE WORKER transplant procedure are in the results section. documented in this encounter Results (ABNORMAL) Tacrolimus level (07/15/2017 10:48 AM [facility]) [facility] Method Time Signature Tacrolimus Last 0000 07/19/2017 [facility] Dose 07/15/17 10:48 AM [facility] Tacrolimus 4.4 (L) 5.0 - 07/19/2017 [facility] Level 15.0 ug/L 2:38 PM [facility] Comment: Tacrolimus Reference Range [...] Blood specimen 07/15/2017 10:48 7 (specimen) AM PASSEMENTERIE WORKER 10:47 AM PASSEMENTERIE WORKER Orlando Richey MD LAB - BLOOD ORDERABLES Performing Organization Address City/State/ZIP Code Phon e Number [facility] [place] [facility] [address] [address] [facility] 500 [place] [address] [facility] documented in this encounter Visit Diagnoses Diagnosis Kidney replaced by transplant documented in this encounter Care Teams Law Professor Relationship Specialty Start Date End Date Momo Forbes PCP - General Family Practice 01/02/14 [facility] [address] [place] [address] documented as of this encounter
--- OUTSIDE RECORDS SUMMARY | 2022-07-07 10:46 | XMS_ITS | Encounter Summary ---
:1950 Author Organization [place] Address [facility] [place] [address] Care Team Providers Name Role Phone Momo Forbes Primary Care Provider Reason for Visit Reason Comments RECHECK Kidney follow up Encounter Details Date Type Department Care Team Description 10/25/2016 Office Visit [facility] Anita Joshi MD Renal hypertension, Nephrology Clinic [address] [place] [address] 1-4 or [place] [address] unspecified chronic 9[address] [place], [place] [address] (Primary Dx) [address] [phone] Social History Tobacco Use Types Packs/Day Years [...] Comments Blood Pressure 168/83 10/25/2016 4:39 PM ABSORPTION OPERATOR Pulse 55 10/25/2016 4:39 PM ABSORPTION OPERATOR Temperature 36.8 ??C (98.3 ??F) 10/25/2016 4:39 PM ABSORPTION OPERATOR Respiratory Rate 18 10/25/2016 4:39 PM ABSORPTION OPERATOR Oxygen Saturation - - Inhaled Oxygen Concentration - - Weight 138.2 kg (304 lb 9.6 oz) 10/25/2016 4:39 PM ABSORPTION OPERATOR Height 182.9 cm (6') 10/25/2016 4:39 PM ABSORPTION OPERATOR Body Mass Index 41.31 10/25/2016 4:39 PM ABSORPTION OPERATOR documented in this encounter Progress Notes [...] (304 lb 9.6 oz). Medication Reconciliation: complete RPTION OPERATOR documented in this encounter Plan of Treatment Not on filedocumented as of this encounter Visit Diagnoses Diagnosis Renal hypertension, stage 1-4 or unspeci fied chronic kidney disease - Primary documented in this encounter Care Teams Pharmacy Technology Instructor Relationship Specialty Start Date End Date Momo Forbes PCP - General Family Practice 01/02/14 [facility] [address] [place] [address] documented as of this encounter
--- OUTSIDE RECORDS SUMMARY | 2022-07-07 10:47 | XMS_ITS | Encounter Summary ---
:1950 Author Organization [place] Address [address] [place] [address]. [place] [address] Care Team Providers Name Role Phone Momo Forbes Primary Care Provider Reason for Visit Reason Onset Date Comments Transplant 03/15/2016 refill Encounter Details Date Type Department Care Team Description 03/15/2016 Refill [facility] Cristy Chen LPN T ransplant (refill) Transplant Clinic [address] [place] [address] [phone] Social History Tobacco Use Types Packs/Day [...] transplant documented in this encounter Care Teams Correctional Sergeant Relationship Specialty Start Date End Date Momo Forbes PCP - General Family Practice 01/02/14 [facility] [address] [place] [address] documented as of this encounter
--- OUTSIDE RECORDS SUMMARY | 2022-07-07 10:47 | XMS_ITS | Encounter Summary ---
:1950 Author Organization [place] Address [address] [place] [address] Care Team Providers Name Role Phone Forbes, Ton Primary Care Provider Encounter Details Date Type Department Care Team Description 07/22/[address] [facility], Joseph Conor isael, [facility] [address] [facility] [address] [place] [phone] [place] [address] [place] [address] (Wo rk) Social History Tobacco [...] Res ults for this MASS SPECTROMETRY PM SOLAR ENERGY SALES SPECIALIST procedure are in the results section. documented in this encounter Results (ABNORMAL) Tacrolimus level (08/09/2016 12:15 PM SOLAR ENERGY SALES SPECIALIST) [facility] Method Time Signature Tacrolimus Last 08/08/16 [facility] Dose 1800 [facility] Tacrolimus 3.8 (L) 5.0 - [facility] Level 15.0 ug/L [facility] Comment: Tacrolimus Reference Range [...] / Volume Laterality 08/09/2016 12:15 08/11/2016 PM SOLAR ENERGY SALES SPECIALIST 10:15 AM SOLAR ENERGY SALES SPECIALIST Deysi Alicea MD LAB - BLOOD ORDERABLES Performing Organization Address City/State/ZIP Code Phon e Number [facility] [address] documented in this encounter Visit Diagnoses Not on filedocumented in this encounter Care Teams Director Risk Relationship Specialty Start Date End Date Momo Forbes PCP - General Family Practice 01/02/14 [facility] [address] [place] [phone] documented as of this encounter
--- OUTSIDE RECORDS SUMMARY | 2022-07-07 10:47 | XMS_ITS | Encounter Summary ---
:1950 Author Organization [place] Address [facility] [place] [address] Care Team Providers Name Role Phone Momo Forbes Primary Care Provider Reason for Visit Reason Onset Date Comments Transplant Pharmacy Medication Review 02/05/2016 Encounter Details Date Type Department Care Team Description 02/05/2016 [facility]phone [facility] Nani Humphrey, [facility] Transplant Pharmacy 500 [facility] [place] [address] [place] [phone] [place] [address] (Wo rk) Social History Tobacco Use Types [...] on filedocumented in this encounter Care Teams Felt Hooker Relationship Specialty Start Date End Date Momo Forbes PCP - General Family Practice 01/02/14 [facility] [address] [place] [address] documented as of this encounter
--- OUTSIDE RECORDS SUMMARY | 2022-07-07 10:47 | XMS_ITS | Encounter Summary ---
:1950 Author Organization [place] Address [facility] [place] [address] Care Team Providers Name Role Phone Momo Forbes Primary Care Provider Reason for Visit Reason Onset Date Comments Refill Request 09/28/2016 Encounter Details Date Type Department Care Team Description 09/28/2016 Refill [facility] Anita Joshi MD Refill Request Nephrology Clinic [address] [place] [address] [place] [address] [phone] Social History Tobacco Use Types Packs/Day Years [...] 1:51 PM CST Last Office Visit with Bankruptcy Attorney: March 2016. Medication refilled per Nephrology Clinic protocol. Janes Jauregui RN RVISOR WINTER documented in this encounter Plan of Treatment Not on filedocumented as of this encounter Visit Diagnoses Diagnosis Reactive depression - Primary Dysthymic disorder documented in this encounter Care Teams Assembler Radio And Electrical Relationship Specialty Start Date End Date Momo Forbes PCP - General Family Practice 01/02/[address] [place] [address] documented as of this encounter
--- OUTSIDE RECORDS SUMMARY | 2022-07-07 10:47 | XMS_ITS | Encounter Summary ---
:1950 Author Organization [place] Address [address] [place] [address] Care Team Providers Name Role Phone Momo Forbes Primary Care Provider Joseph Quintana MD Unavailable Encounter Details Date Type Department Care Team Description 05/03/2016 External Order Results [facility] Nurse, [facility] 9 [place] [address] Social [...] on filedocumented in this encounter Care Teams Welding Machine Operator Friction Relationship Specialty Start Date End Date Momo Forbes PCP - General Family Practice 01/02/14 [facility] [address] [place] [address] Joseph Quintana, Assigned Nephrology 03/29/21 MD Provider 7 [facility] 353 [facility] [address] [place] [address] documented as of this encounter
--- OUTSIDE RECORDS SUMMARY | 2022-07-07 10:47 | XMS_ITS | Encounter Summary ---
:1950 Author Organization [place] Address [address] [place] [address] Care Team Providers Name Role Phone Momo Forbes Primary Care Provider Reason for Visit Reason Onset Date Comments Transplant 05/10/2016 refill Encounter Details Date Type Department Care Team Description 05/10/2016 Refill [facility] Chucho Perez MD Transplant (refill) 2nd Floor, Clinic [address] [place] [address] [facility] [place] [address] Social History Tobacco Use Types [...] send new rx Thank you Janelle Flowers [facility] [phone] documented in this encounter Plan of Treatment Not on filedocumented as of this encounter Visit Diagnoses Diagnosis Kidney transplanted - Primary Kidney replaced by transplant documented in this encounter Care Teams Dependency Program Director Relationship Specialty Start Date End Date Momo Forbes PCP - General Family Practice 01/02/14 [facility] [address] [place] [phone] documented as of this encounter
--- OUTSIDE RECORDS SUMMARY | 2022-07-07 10:47 | XMS_ITS | Encounter Summary ---
:1950 Author Organization [place] Address [address] [place] [address]. [place] [address] Care Team Providers Name Role Phone Momo Forbes Primary Care Provider Reason for Visit Reason Onset Date Comments Transplant 02/06/2016 refill Encounter Details Date Type Department Care Team Description 02/06/2016 Refill [facility] Cristy Chen LPN T ransplant (refill) Transplant Clinic [address] [place] [address] [phone] Social History Tobacco Use Types Packs/Day [...] transplant documented in this encounter Care Teams Concrete Hopper Operator Relationship Specialty Start Date End Date Momo Forbes PCP - General Family Practice 01/02/14 [facility] [address] [place] [address] documented as of this encounter
--- OUTSIDE RECORDS SUMMARY | 2022-07-07 10:47 | XMS_ITS | Encounter Summary ---
:1950 Author Organization [place] Address [address] [place] [address] Care Team Providers Name Role Phone Forbes, Ton Primary Care Provider Encounter Details Date Type Department Care Team Description 02/20/2016 Orders Only [facility], Joseph Conor isael, [facility] 500 [facility] [address] [place] [phone] [place] [address] [place] [address] (Wo rk) Social History Tobacco [...] (ABNORMAL) Tacrolimus level (03/17/2016 10:44 AM CDT) [facility] Method Time Signature Tacrolimus Last 2100 [facility] Dose 03/16/16 [facility] Tacrolimus 4.2 (L) 5.0 - [facility] Level 15.0 ug/L [facility] Comment: [...] its perform ance characteristics determined by the [facility], [...] Code Phon e Number [facility] [address] documented in this encounter Visit Diagnoses Not on filedocumented in this encounter Care Teams Special Needs Nanny Relationship Specialty Start Date End Date Momo Forbes PCP - General Family Practice 01/02/14 [facility] [address] [place] [phone] documented as of this encounter
--- OUTSIDE RECORDS SUMMARY | 2022-07-07 10:47 | XMS_ITS | Encounter Summary ---
:1950 Author Organization [place] Address [address] [place] [address] Care Team Providers Name Role Phone Momo Forbes Primary Care Provider Joseph Quintana MD Unavailable Encounter Details Date Type Department Care Team Description 08/18/2016 External Order Results [facility] Nurse, [facility] Transplant Clinic 9 [place] [address] Social History Tobacco Use Types [...] 08/09/2016 12:21 PM Results for this RESULTS SALES ENABLEMENT SPECIALIST procedure are i n the results section. documented in this encounter Results (ABNORMAL) TXP External Lab Result (08/09/2016 12:21 PM SALES ENABLEMENT SPECIALIST) Analysis Performed At Patho logist Time [...] / / Volume Laterality 08/09/2016 12:21 PM SALES ENABLEMENT SPECIALIST Narrative [facility] - 08/18/2016 1:35 PM SALES ENABLEMENT SPECIALIST Verified by Jessica Major on 016. Patient Reported LABORATORY Performing Organization Address City/State/ZIP Code Phon e Number [facility] documented in this encounter Visit Diagnoses Not on filedocumented in this encounter Care Teams Stores Naval Relationship Specialty Start Date End Date Momo Forbes PCP - General Family Practice 01/02/14 [facility] [address] [place] [address] Joseph Quintana, Assigned Nephrology 03/29/21 MD Provider [address] [place] [address] 1932 [place], [place] [phone] documented as of this encounter
--- OUTSIDE RECORDS SUMMARY | 2022-07-07 10:47 | XMS_ITS | Encounter Summary ---
:1950 Author Organization [place] Address [address] [place] [address] Care Team Providers Name Role Phone Momo Forbes Primary Care Provider Reason for Visit Reason Onset Date Comments Transplant 03/30/2016 refill Encounter Details Date Type Department Care Team Description 03/30/2016 Refill The Transplant Deysi Burns MD Transplant (refill) 2nd Floor, Clinic 2A [phone] [place] [address] [facility] [address] Social History Tobacco Use Types [...] Date: 02/19/16 Quantity: 240 Thanks!! Janelle Jackson [facility] documented in this encounter Plan of Treatment Not on filedocumented as of this encounter Visit Diagnoses Diagnosis Kidney transplanted - Primary Kidney replaced by transplant documented in this encounter Care Teams Personal Driver Relationship Specialty Start Date End Date Momo Forbes PCP - General Family Practice 01/02/14 [facility] [address] [place] [address] documented as of this encounter
--- OUTSIDE RECORDS SUMMARY | 2022-07-07 10:47 | XMS_ITS | Encounter Summary ---
:1950 Author Organization [place] Address [facility] [place] [address] Care Team Providers Name Role Phone Momo Forbes Primary Care Provider Reason for Visit Reason Comments RECHECK 6 mo follow up,christiano cruz Encounter Details Date Type Department Care Team Description [facility]/20[facility]2016 [facility] Renal hypertension, stage 1-4 or unspecified chronic kidney disease (Primary Dx); Nephrology Clinic Reactive depression; [address] Thrombocytopenia (H) 909 [facility] RANJAN [address] [place] [phone] Social History Tobacco Use Types Packs/Day [...] Body Mass Index 41.55 09/02/2015 4:32 PM ACCOUNT SERVICES SPECIALIST documented in this encounter Progress Notes Chucho [...] encounter Results Folate RBC (10/25/2016 3:54 PM ACCOUNT SERVICES SPECIALIST) athologist Signature HCT Within 46.0 % [address] Folate RBC 663 ng/mL [facility] Comment: Reference range: >=366 (Note) Performed by [employer], [address] [place] [address] [email or web address], Geoff Reed MD, Lab. Director Specimen Anatomical Collection Method Collection Time Receive d Time (Source) Location / / Volume Laterality Blood specimen 10/25/2016 3:54 PM 017 3:55 (specimen) ACCOUNT SERVICES SPECIALIST PM ACCOUNT SERVICES SPECIALIST Chucho Joshi MD LAB - BLOOD ORDERABLES Performing Organization Address City/State/ZIP Code Phon e Number [address] [address] [facility] documented in this encounter Visit Diagnoses Diagnosis Renal hypertension, stage 1-4 or unspeci fied chronic kidney disease - Primary Reactive depression Dysthymic disorder Thrombocytopenia (H) Thrombocytopenia, unspecified documented in this encounter Care Teams Motion Pictures Cartoonist Relationship Specialty Start Date End Date Momo Forbes PCP - General Family Practice 01/02/14 [facility] [address] [place] [address] documented as of this encounter
--- OUTSIDE RECORDS SUMMARY | 2022-07-07 10:47 | XMS_ITS | Encounter Summary ---
:1950 Author Organization [place] Address [facility] [place] [address] Care Team Providers Name Role Phone Momo Forbes Primary Care Provider Reason for Visit Reason Onset Date Comments Transplant 01/16/2016 refill Encounter Details Date Type Department Care Team Description 01/16/2016 Refill The Transplant Deysi Burns MD Transplant (refill) 2nd Floor, Clinic [address]A [address] [place] [address] [facility] [place] [address] Social History Tobacco Use Types [...] transplant documented in this encounter Care Teams Other Sports Official Relationship Specialty Start Date End Date Momo Forbes PCP - General Family Practice 01/02/14 [facility] [address] [place] [address] documented as of this encounter
--- OUTSIDE RECORDS SUMMARY | 2022-07-07 10:47 | XMS_ITS | Encounter Summary ---
:1950 Author Organization [place] Address [facility] [place] [address] Care Team Providers Name Role Phone Momo Forbes Primary Care Provider Reason for Visit Reason Onset Date Comments Transplant 02/19/2016 refill Encounter Details Date Type Department Care Team Description 02/19/2016 Refill The Transplant Deysi Burns MD Transplant (refill) 2nd Floor, Clinic 2A [address] [place] [address] [facility] [address] Social History Tobacco Use Types [...] documented in this encounter Care Teams Allergy And Immunology Specialist Relationship Specialty Start Date End Date Momo Forbes PCP - General Family Practice 01/02/14 [facility] [address] [place] [address] documented as of this encounter
--- OUTSIDE RECORDS SUMMARY | 2022-07-07 10:47 | XMS_ITS | Encounter Summary ---
:1950 Author Organization [place] Address [facility] [address] Care Team Providers Name Role Phone Momo Forbes Primary Care Provider Reason for Visit Reason Onset Date Comments Transplant 04/20/2016 refill Encounter Details Date Type Department Care Team Description 04/20/2016 Refill [facility] Joseph Quintana, Transplant (refill) Transplant Clinic [address] [place] [phone] [place], [place] [phone] (Wo rk) Social History Tobacco Use Types [...] documented in this encounter Care Teams Client Support Manager Relationship Specialty Start Date End Date Momo Forbes PCP - General Family Practice 01/02/14 [facility] [address] [place] [address] documented as of this encounter
--- OUTSIDE RECORDS SUMMARY | 2022-07-07 10:47 | XMS_ITS | Encounter Summary ---
:1950 Author Organization [place] Address [facility] [place] [address] Care Team Providers Name Role Phone Ingrid Santana RN Unavailable Unavailable Momo Forbes Primary Care Provider Reason for Referral Consultation - Closed Specialty Diagnoses / Procedures Referred By Contact Refer red To Contact Diagnoses Morbid obesity due to excess calories (H) Deysi Alicea MD [facility] [address] [place] [phone] Referral ID Status Reason Start Date Expiration Date Visits Requ ested Visits Authorized [id number] Closed 09/02/2015 09/01/2016 1 1 PASTER Reason for Visit Reason Comments RECHECK Follow up Kidney TX 4 Encounter Details Date Type Department Care Team Description 09/02/2015 Office Visit Nephrology Deysi Alicea, S/P kidney transplant (Prima ry Dx); 2nd Floor, Clinic 2A Morbid obesity due to excess calories (H ) Tommy Wilburn [address] [place] [phone] [place] [address] (Wo rk) [address] [phone] Social History Tobacco Use Types Packs/Day Years [...] Comments Blood Pressure 128/72 09/02/2015 4:32 PM HIDE PASTER Pulse 61 09/02/2015 4:32 PM HIDE PASTER Temperature 36.7 ??C (98 ??F) 09/02/2015 4:32 PM HIDE PASTER Respiratory Rate - - Oxygen Saturation 94% 09/02/2015 4:32 PM HIDE PASTER Inhaled Oxygen Concentration - - Weight 141.8 kg (312 lb 9.6 oz) 09/02/2015 4:32 PM HIDE PASTER Height 182.9 cm (6' 0.01) 09/02/2015 4:32 PM HIDE PASTER Body Mass Index 42.39 09/02/2015 4:32 PM HIDE PASTER documented in this encounter Progress Notes Deysi [...] discharged on Cumadin; Cumadin was stopped by hide dropper during the follow up visit, as he [...] Years of Education: 14 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 BP completed using cuff size: large PASTER documented in this encounter Plan of Treatment [...] ) documented in this encounter Care Teams Body Mechanic Apprentice Relationship Specialty Start Date End Date Momo Forbes PCP - General Family Practice 01/02/14 [facility] [address] [place] [address] Ingrid Santana, RN Registered Nurse Transplant 02/10/12 documented as of this encounter
--- OUTSIDE RECORDS SUMMARY | 2022-07-07 10:47 | XMS_ITS | Encounter Summary ---
:1950 Author Organization [place] Address [address] [place] [address] Care Team Providers Name Role Phone Forbes, Momo He Primary Care Provider Reason for Visit Reason Onset Date Comments Transplant Immunosuppression Management 08/13/2016 Encounter Details Date Type Department Care Team Description 08/13/2016 Telephone [facility] Shiva Kahn Transp [facility] RN Immunosuppression [address] [place] [address] [phone] [place] [address] [place] [phone] Social History Tobacco Use Types Packs/Day Years [...] Patient will repeat labs in 1-2 weeks. E SETTING PAINTER APPRENTICE Telephone Encounter - Shiva Kahn RN - 08/13/2016 7:42 AM CST Tacrolimus level 3.8 reported as 18-hour level. PLAN: Verify timing of labs tac dose and time of blood draw for tac level. Repeat tac level taking care to get a good 12-hour level (11-13 hours acceptable). TASK: Please call patient with questions and instructions per plan. E SETTING PAINTER APPRENTICE documented in this encounter Plan of Treatment Not on filedocumented as of this encounter Visit Diagnoses Diagnosis Kidney replaced by transplant - Primary Aftercare following organ transplant Encounter for long-term current use of m edication documented in this encounter Care Teams Jinrikisha Driver Relationship Specialty Start Date End Date Momo Forbes PCP - General Family Practice 01/02/14 [facility] [address] [place] [address] documented as of this encounter
--- OUTSIDE RECORDS SUMMARY | 2022-07-07 10:47 | XMS_ITS | Encounter Summary ---
:1950 Author Organization [place] Address [address] [place] [address] Care Team Providers Name Role Phone Momo Forbes Primary Care Provider Joseph Quintana MD Unavailable Encounter Details Date Type Department Care Team Description 03/18/2016 External Order Results [facility] Nurse, [facility] Transplant Clinic [address] [place] [address] Social History Tobacco Use Types [...] External Lab Result (03/17/2016 10:45 AM CDT) [facility] Method Time Signature Sodium (External) 139 [...] on filedocumented in this encounter Care Teams Mining Detail Draftsperson Relationship Specialty Start Date End Date Momo Forbes PCP - General Family Practice 5/14/14 [facility] [address] [place] [address] Joseph Quintana, Assigned Nephrology 03/29/21 MD Provider [address] [place] [address] [address] [place] [address] documented as of this encounter
--- OUTSIDE RECORDS SUMMARY | 2022-07-07 10:47 | XMS_ITS | Encounter Summary ---
:1950 Author Organization [place] Address [facility]0 [place] [address] Care Team Providers Name Role Phone Momo Forbes Primary Care Provider Reason for Visit Reason Onset Date Comments Transplant 02/19/2016 refill Encounter Details Date Type Department Care Team Description 02/19/2016 Refill The Transplant Deysi Burns MD Transplant (refill) 2nd Floor, Clinic [address]A [address] [place] [address] [facility] [place] [address] Social History Tobacco Use Types [...] documented in this encounter Care Teams Museum Preparator Relationship Specialty Start Date End Date Momo Forbes PCP - General Family Practice 01/02/14 [facility] [address] [place] [address] documented as of this encounter
--- OUTSIDE RECORDS SUMMARY | 2022-07-07 10:48 | XMS_ITS | Encounter Summary ---
:1950 Author Organization [place] Address [address] [place] [address] Care Team Providers Name Role Phone Ingrid Santana RN Unavailable Unavailable Momo Forbes Primary Care Provider Reason for Visit Reason Onset Date Comments Medication Question 09/12/2014 Encounter Details Date Type Department Care Team Description 09/12/2014 Telephone PHARMACY Beny Staton Geovanni Medication Question 500 [facility] [place] [address] PHARMACY [phone] [place] [address] Social History Tobacco Use Types [...] his dr told himhis bp was good. ION MECHANIC HELPER documented in this encounter Plan of Treatment Not on filedocumented as of this encounter Visit Diagnoses Not on filedocumented in this encounter Care Teams Pharmacy Technician Instructor Relationship Specialty Start Date End Date Momo Forbes PCP - General Family Practice 01/02/14 [facility] [address] [place] [address] Ingrid Santana, RN Registered Nurse Transplant 02/10/12 documented as of this encounter
--- OUTSIDE RECORDS SUMMARY | 2022-07-07 10:48 | XMS_ITS | Encounter Summary ---
:1950 Author Organization [place] Address [address] [place] [address]. [place] [address] Care Team Providers Name Role Phone Ingrid Santana RN Unavailable Unavailable Momo Forbes Primary Care Provider Encounter Details Date Type Department Care Team Description 08/29/2015 Orders Only The Transplant Deepa Morgan Aftercare following organ tr ansplant (Primary Dx); 2nd Floor, Clinic 2A Saima Kidney replaced by transplan t; [facility] current use of medication [address] [phone] Social History Tobacco Use Types Packs/Day Years [...] edication documented in this encounter Care Teams Hygiene Coordinator Relationship Specialty Start Date End Date Momo Forbes PCP - General Family Practice 01/02/14 [facility] [address] [place] [address] Ingrid Santana RN Registered Nurse Transplant 02/10/12 documented as of this encounter
--- OUTSIDE RECORDS SUMMARY | 2022-07-07 10:48 | XMS_ITS | Encounter Summary ---
:1950 Author Organization [place] Address [address] [place] [address] Care Team Providers Name Role Phone Ingrid Santana RN Unavailable Unavailable Momo Forbes Primary Care Provider Encounter Details Date Type Department Care Team Description 07/22/2015 Orders Only [facility] Dereck Dangelo MD [facility] Laborato ry 420 [facility] 195 [address] [place], [place] [address] [place] [address] [phone] Social History Tobacco Use Types Packs/Day Years [...] PM R esults for this MASS SPECTROMETRY BAKERY MACHINE MECHANIC SUPERVISOR procedure are in the results section. documented in this encounter Results Tacrolimus level (08/12/2015 4:35 PM BAKERY MACHINE MECHANIC SUPERVISOR) [facility] Method Time Signature Tacrolimus Last 0700 [facility] [...] its perform ance characteristics determined by the [facility], ??Special Chemistry Laboratory. It has not [...] Laterality 08/12/2015 4:35 PM 08/18/ 5 9:11 BAKERY MACHINE MECHANIC SUPERVISOR AM BAKERY MACHINE MECHANIC SUPERVISOR Mingo Dangelo MD LAB - BLOOD ORDERABLES Performing Organization Address City/State/ZIP Code Phon e Number [facility] [address] documented in this encounter Visit Diagnoses Not on filedocumented in this encounter Care Teams Application Systems Administrator Relationship Specialty Start Date End Date Momo Forbes PCP - General Family Practice 01/02/14 [facility] [address] [place] [address] Ingrid Santana, RN Registered Nurse Transplant 02/10/12 documented as of this encounter
--- OUTSIDE RECORDS SUMMARY | 2022-07-07 10:48 | XMS_ITS | Encounter Summary ---
:1950 Author Organization [place] Address [address] [place] [address] Care Team Providers Name Role Phone Ingrid Santana RN Unavailable Unavailable Momo Forbes Primary Care Provider Encounter Details Date Type Department Care Team Description 12/20/2014 Orders Only [facility], [facility] [place] [address] [phone] [place] [address] 729 [place] [address] (Wo rk) Social History Tobacco [...] Results Tacrolimus level (12/25/2014 9:45 AM CDT) [facility] Method Time Signature Tacrolimus Last 12/24/14 [facility] Dose 2130 [facility] Tacrolimus 9.5 5.0 - [facility] Level 15.0 ug/L [facility] [...] perform ance characteristics determined by the [facility], ??Special Chemistry Laboratory. It has [...] e Number [facility] [address] documented in this encounter Visit Diagnoses Not on filedocumented in this encounter Care Teams Asbestos Abatement Worker Relationship Specialty Start Date End Date Momo Forbes PCP - General Family Practice 01/02/14 [place] [phone] Ingrid Santana, RN Registered Nurse Transplant 02/10/12 documented as of this encounter
--- OUTSIDE RECORDS SUMMARY | 2022-07-07 10:48 | XMS_ITS | Encounter Summary ---
:1950 Author Organization [place] Address [address] [place] [address] Care Team Providers Name Role Phone Ingrid Santana RN Unavailable Unavailable Momo Forbes Primary Care Provider Encounter Details Date Type Department Care Team Description 12/30/2014 Orders Only The Transplant Shiva Arias, RN -donor kidney 2nd Floor, Clinic 2A [facility] transplant recipient Tommy Guillermoteen 420 [facility] (Primary Dx) Building [address] [place] [address] [place] [address] Social History Tobacco Use Types [...] transplant documented in this encounter Care Teams Photoengraving Supervisor Relationship Specialty Start Date End Date Momo Forbes PCP - General Family Practice 01/02/14 [facility] [address] [place] [phone] Ingrid Santana, RN Registered Nurse Transplant 02/10/12 documented as of this encounter
--- OUTSIDE RECORDS SUMMARY | 2022-07-07 10:48 | XMS_ITS | Encounter Summary ---
:1950 Author Organization [place] Address [address] [place] [address] Care Team Providers Name Role Phone Ingrid Santana RN Unavailable Unavailable Momo Forbes Primary Care Provider Joseph Quintana MD Unavailable Encounter Details Date Type Department Care Team Description 11/07/2014 External Order Results The Transplant Ce nter Nurse, [facility] 2nd Floor, Clinic [address]A [address] [phone] Social History Tobacco Use [...] Estimated >60 >60 LABDE SCAN (if ml/min/1.7 Cook Islander) 3m2 (External) GFR Estimated 51 (L) >60 [...] on filedocumented in this encounter Care Teams Primer And Powder Canning Leader Relationship Specialty Start Date End Date Momo Forbes PCP - General Family Practice 01/02/14 [place] [address] Ingrid Santana, RN Registered Nurse Transplant 02/10/12 Joseph Quintana, Assigned Nephrology 03/29/21 MD Provider [address] [place] [id number] documented as of this encounter
--- OUTSIDE RECORDS SUMMARY | 2022-07-07 10:48 | XMS_ITS | Encounter Summary ---
:1950 Author Organization [place] Address [address] [place] [address] Care Team Providers Name Role Phone Ingrid Santana RN Unavailable Unavailable Momo Forbes Primary Care Provider Reason for Visit Reason Onset Date Comments Medication Question 07/26/2014 Encounter Details Date Type Department Care Team Description 07/26/2014 Telephone PHARMACY Duncan, Fina, RPH Medication Question 500 [facility] [place] [address] 715 [facility] [phone] [place] [address] Social History Tobacco Use Types [...] very well healthy and happy Beny Staton [facility] Specialty Pharmacist [phone] CAL ASSISTANT SECRETARY documented in this encounter Plan of Treatment Not on filedocumented as of this encounter Visit Diagnoses Not on filedocumented in this encounter Care Teams Engineering Executive Relationship Specialty Start Date End Date Momo Forbes PCP - General Family Practice 01/02/14 [facility] [address] [place] [address] Ingrid Santana, RN Registered Nurse Transplant 02/10/12 documented as of this encounter
--- OUTSIDE RECORDS SUMMARY | 2022-07-07 10:48 | XMS_ITS | Encounter Summary ---
:1950 Author Organization [place] Address [address] [place] [address] Care Team Providers Name Role Phone Ingrid Santana RN Unavailable Unavailable Momo Forbes Primary Care Provider Joseph Quintana MD Unavailable Encounter Details Date Type Department Care Team Description 08/28/2014 External Order Results The Transplant Ce nter Nurse, [facility] 2nd Floor, Clinic 2A [address] [place] [address] Social History Tobacco Use Types [...] 08/26/2014 10:25 AM Results for this RESULTS [facility] procedure are i n the results section. documented in this encounter Results (ABNORMAL) TXP External Lab Result (08/26/2014 10:25 AM [facility] [facility]) Analysis Performed At Patho logist Time Signature [...] 58 (L) >60 LABDE SCAN (if ml/min/1.7 English) 3m2 (External) GFR Estimated 48 (L) >60 [...] / / Volume Laterality 08/26/2014 10:25 AM [facility] Narrative [facility] - 08/28/2014 4:34 PM [facility] Verified by Freddy Mehta on 08/28. Patient Reported LABORATORY Performing Organization Address City/State/ZIP Code Phon e Number [facility] LABDE SCAN documented in this encounter Visit Diagnoses Not on filedocumented in this encounter Care Teams Fish Rod Maker Relationship Specialty Start Date End Date Momo Forbes PCP - General Family Practice 01/02/14 [facility] [address] [place] [address] Ingrid Santana, RN Registered Nurse Transplant 02/10/12 Joseph Quintana, Assigned Nephrology 03/29/21 MD Provider 717 [facility] 353 [facility] [address] [place] [address] documented as of this encounter
--- OUTSIDE RECORDS SUMMARY | 2022-07-07 10:48 | XMS_ITS | Encounter Summary ---
:1950 Author Organization [place] Address [address] [place] [address] Care Team Providers Name Role Phone Ingrid Santana RN Unavailable Unavailable Momo Forbes Primary Care Provider Reason for Visit Reason Onset Date Comments Refill Request 02/10/2015 mycophenolate, smz/t mp Encounter Details Date Type Department Care Team Description 02/10/2015 Refill The Transplant Deysi Burns, Refill Request 2nd Floor, Clinic 2A MD (mycophenolate, Sanders [facility] smz/tmp) Building [address] [place] [id number] [place] [address] [place] [address] Social History Tobacco Use Types [...] Fill Date: 01/09/15 Last Fill Quantity: 240 [id number] Last Fill Date: 01/09/15 Last Fill Quantity: 31 Gayathri Orta [facility] [address] [facility] [address] documented in this encounter Plan of Treatment Not on filedocumented as of this encounter Visit Diagnoses Diagnosis S/P kidney transplant - Primary Kidney replaced by transplant documented in this encounter Care Teams Energy And Sustainability Manager Relationship Specialty Start Date End Date Momo Forbes PCP - General Family Practice 01/02/[address] [address] Ingrid Santana, RN Registered Nurse Transplant 02/10/12 documented as of this encounter
--- OUTSIDE RECORDS SUMMARY | 2022-07-07 10:48 | XMS_ITS | Encounter Summary ---
:1950 Author Organization [place] Address [address] [place] [address] Care Team Providers Name Role Phone Ingrid Santana RN Unavailable Unavailable Momo Forbes Primary Care Provider Reason for Visit Reason Onset Date Comments Medication Question 10/11/2014 Encounter Details Date Type Department Care Team Description 10/11/2014 Telephone PHARMACY Beny Staton Geovanni Medication Question 500 [facility] [place] [address] PHARMACY [phone] [place] [address] Social History Tobacco Use Types [...] is 8 months post-transplant. Medication adherence plan: [employer] pillbox Are you having any issues managing [...] he checks it. Beny Staton [facility] Specialty Pharmacist [phone] T PROTECTION OFFICER documented in this encounter Plan of Treatment Not on filedocumented as of this encounter Visit Diagnoses Not on filedocumented in this encounter Care Teams Avionics Repair Technician Relationship Specialty Start Date End Date Momo Forbes PCP - General Family Practice 01/02/14 [place] [phone] Ingrid Santana, RN Registered Nurse Transplant 02/10/12 documented as of this encounter
--- OUTSIDE RECORDS SUMMARY | 2022-07-07 10:48 | XMS_ITS | Encounter Summary ---
:1950 Author Organization [place] Address [address] [place] [address] Care Team Providers Name Role Phone Ingrid Santana RN Unavailable Unavailable Momo Forbes Primary Care Provider Encounter Details Date Type Department Care Team Description 10/20/2014 Orders Only [facility], Joseph Conor replaced by [facility], [facility] [place] [address] [phone] [place] [address] 707 [place] [address] (Wo rk) Social History Tobacco [...] Results Tacrolimus level (11/05/2014 8:29 AM CDT) [facility] Method Time Signature Tacrolimus Last 2029, [facility] Dose 11/04/14 [facility] Tacrolimus 7.7 5.0 - [facility] Level [...] Phon e Number [facility] [address] documented in this encounter Visit Diagnoses Not on filedocumented in this encounter Care Teams Jigsawyer Relationship Specialty Start Date End Date Momo Forbes PCP - General Family Practice 01/02/14 [place] [phone] Ingrid Santana, RN Registered Nurse Transplant 02/10/12 documented as of this encounter
--- OUTSIDE RECORDS SUMMARY | 2022-07-07 10:48 | XMS_ITS | Encounter Summary ---
:1950 Author Organization [place] Address [address] [place] [address] Care Team Providers Name Role Phone Ingrid Santana RN Unavailable Unavailable Momo Forbes Primary Care Provider Encounter Details Date Type Department Care Team Description 08/22/2014 Orders Only [facility], Joseph Conor [facility] [place] 500 [facility] [address] [place] [address] [phone] [place] [address] 298 [place] [address] (Wo rk) Social History [...] Res ults for this MASS SPECTROMETRY AM NURSE INSTRUCTOR procedure are in the results section. documented in this encounter Results Tacrolimus level (08/26/2014 10:21 AM NURSE INSTRUCTOR) [facility] Method Time Signature Tacrolimus Last 08/25/14 [facility] Dose 2030 [facility] Tacrolimus 6.6 5.0 - [facility] Level 15.0 ug/L [facility] Comment: Tacrolimus Reference Range Kidney [...] / Volume Laterality 08/26/2014 10:21 08/28/2014 AM NURSE INSTRUCTOR 11:34 AM NURSE INSTRUCTOR Mingo Dangelo MD LAB - BLOOD ORDERABLES Performing Organization Address City/State/ZIP Code Phon e Number [facility] [address] documented in this encounter Visit Diagnoses Not on filedocumented in this encounter Care Teams Structured Cabling Technician Relationship Specialty Start Date End Date Momo Forbes PCP - General Family Practice 01/02/14 [facility] 1999 [place] [address] Ingrid Santana, RN Registered Nurse Transplant 02/10/12 documented as of this encounter
--- OUTSIDE RECORDS SUMMARY | 2022-07-07 10:48 | XMS_ITS | Encounter Summary ---
:1950 Author Organization [place] Address [address] [place] [address] Care Team Providers Name Role Phone Ingrid Santnaa RN Unavailable Unavailable Momo Forbes Primary Care Provider Joseph Quintana MD Unavailable Encounter Details Date Type Department Care Team Description 07/17/2014 External Order Results The Transplant Ce nter Nurse, [facility] 2nd Floor, Clinic [address] [place] [address] Social History Tobacco Use Types [...] 8:28 AM Results f or this RESULTS CINDER BLOCK MAKER procedure are i n the results section. documented in this encounter Results (ABNORMAL) TXP External Lab Result (07/15/2014 8:28 AM CINDER BLOCK MAKER) Analysis Performed At Patho logist Time [...] 60 (L) >60 LABDE SCAN (if ml/min/1.7 Guatemalan) 3m2 (External) GFR Estimated 49 (L) >60 [...] / / Volume Laterality 07/15/2014 8:28 AM CINDER BLOCK MAKER Narrative JESSICA PFT - 07/17/2014 8:35 AM CINDER BLOCK MAKER Verified by Maribel Plunkett on 07/17/20 14. Patient Reported LABORATORY Performing Organization Address City/State/ZIP Code Phon e Number [facility] LABDE SCAN documented in this encounter Visit Diagnoses Not on filedocumented in this encounter Care Teams Fish Cutting Machine Operator Relationship Specialty Start Date End Date Momo Forbes PCP - General Family Practice 01/02/14 [place] [address] Ingrid Santana, RN Registered Nurse Transplant 02/10/12 Joseph Quintana, Assigned Nephrology 03/29/21 MD Provider [address] [place] [address] [phone] documented as of this encounter
--- OUTSIDE RECORDS SUMMARY | 2022-07-07 10:48 | XMS_ITS | Encounter Summary ---
:1950 Author Organization [place] Address [address] [place] [address] Care Team Providers Name Role Phone Ingrid Santana RN Unavailable Unavailable Momo Forbes Primary Care Provider Joseph Quintana MD Unavailable Encounter Details Date Type Department Care Team Description 02/03/2015 External Order Results The Transplant Ce nter Nurse, [facility] 2nd Floor, Clinic [address]A [address] [phone] Social History Tobacco Use Types [...] External Lab Result (01/28/2015 8:56 AM CDT) [facility] Method Time Signature Sodium (External) 140 [...] on filedocumented in this encounter Care Teams Melter Supervisor Open Hearth Furnace Relationship Specialty Start Date End Date Momo Forbes PCP - General Family Practice 01/02/14 [facility] 2000 [place] [address] Ingrid Santana, RN Registered Nurse Transplant 02/10/12 Joseph Quintana, Assigned Nephrology 03/29/21 MD Provider [address] [place] [address] [address] [place] [address] documented as of this encounter
--- OUTSIDE RECORDS SUMMARY | 2022-07-07 10:48 | XMS_ITS | Encounter Summary ---
:1950 Author Organization [place] Address [address] [place] [address] Care Team Providers Name Role Phone Ingrid Santana RN Unavailable Unavailable Momo Forbes Primary Care Provider Encounter Details Date Type Department Care Team Description 09/22/2014 Orders Only [facility], [facility] [place] [address] [phone] [place] [address] 658 [place] [address] (Wo rk) Social History Tobacco [...] AM R esults for this MASS SPECTROMETRY COMMERCIAL ADMINISTRATOR procedure are in the results section. TACROLIMUS BY TANDEM Routine 10/03/2014 8:30 AM R esults for this MASS SPECTROMETRY COMMERCIAL ADMINISTRATOR procedure are in the results section. documented in this encounter Results Tacrolimus level (10/17/2014 8:15 AM COMMERCIAL ADMINISTRATOR) [facility] Method Time Signature Tacrolimus Last 2029 [facility] Dose 10/16/14 [facility] Tacrolimus 9.2 5.0 - [facility] Level 15.0 ug/L [facility] [...] its perform ance characteristics determined by the [facility], [...] / Volume Laterality 10/17/2014 8:15 AM 5 COMMERCIAL ADMINISTRATOR 11:17 AM COMMERCIAL ADMINISTRATOR Mingo Dangelo MD LAB - BLOOD ORDERABLES Performing Organization Address City/State/ZIP Code Phon e Number [facility] 500 [place], [place] [phone] [place] [address] Tacrolimus level (10/03/2014 8:30 AM COMMERCIAL ADMINISTRATOR) [facility] Method Time Signature Tacrolimus Last 10/02/14 [facility] Dose 2030 [facility] Tacrolimus 7.4 5.0 - [facility] 15.0 ug/L [facility] [...] its perform ance characteristics determined by the [facility], [...] / Volume Laterality 10/03/2014 8:30 AM 5 COMMERCIAL ADMINISTRATOR 11:09 AM COMMERCIAL ADMINISTRATOR Mingo Dangelo MD LAB - BLOOD ORDERABLES Performing Organization Address City/State/ZIP Code Phon e Number [facility] 500 [place], [place] [phone] [place] [address] documented in this encounter Visit Diagnoses Not on filedocumented in this encounter Care Teams Brand Engineer Relationship Specialty Start Date End Date Momo Forbes PCP - General Family Practice 01/02/14 [facility] [address] [place] [address] Ingrid Santana, RN Registered Nurse Transplant 02/10/12 documented as of this encounter
--- OUTSIDE RECORDS SUMMARY | 2022-07-07 10:48 | XMS_ITS | Encounter Summary ---
:1950 Author Organization [employer] Address [facility] [place] [address] Care Team Providers Name Role Phone Ingrid Santana RN Unavailable Unavailable Momo Forbes Primary Care Provider Reason for Visit Reason Onset Date Comments Patient Reminder 08/28/2015 Encounter Details Date Type Department Care Team Description 08/28/2015 Telephone Nephrology Yesenia Clements LPN Patient Reminder 2nd Floor, Clinic 2A [place] [phone] Social History Tobacco Use Types Packs/Day [...] Patient confirmed and understood. Yesenia Clements CMA NG LINE INSPECTOR documented in this encounter Plan of Treatment Not on filedocumented as of this encounter Visit Diagnoses Not on filedocumented in this encounter Care Teams Wire Stretcher Relationship Specialty Start Date End Date Momo Forbes PCP - General Family Practice 01/02/14 [facility] [address] [place] [address] Ingrid Santana, RN Registered Nurse Transplant 02/10/12 documented as of this encounter
--- OUTSIDE RECORDS SUMMARY | 2022-07-07 10:48 | XMS_ITS | Encounter Summary ---
:1950 Author Organization [place] Address [facility] [place] [address] Care Team Providers Name Role Phone Ingrid Santana RN Unavailable Unavailable Momo Forbes Primary Care Provider Encounter Details Date Type Department Care Team Description 10/04/2014 External Order Results The Transplant Ce nter Nurse, [facility] 2nd Floor, Clinic [address]A [address] [phone] Social History Tobacco Use [...] 8:33 AM Results f or this RESULTS OVERHEAD LINE WORKER procedure are i n the results section. documented in this encounter Results (ABNORMAL) TXP External Lab Result (10/03/2014 8:33 AM OVERHEAD LINE WORKER) Analysis Performed At Patho logist [...] 57 (L) >60 LABDE SCAN (if ml/min/1.7 Tanzanian) 3m2 (External) GFR Estimated 47 (L) >60 [...] / / Volume Laterality 10/03/2014 8:33 AM OVERHEAD LINE WORKER Narrative ZACHERYTYLER PFT - 10/04/2014 8:51 AM OVERHEAD LINE WORKER Verified by Josseline Palma on 5. Patient Reported LABORATORY Performing Organization Address City/State/ZIP Code Phon e Number [facility] LABDE SCAN documented in this encounter Visit Diagnoses Not on filedocumented in this encounter Care Teams Human Resources Safety Manager Relationship Specialty Start Date End Date Momo Forbes PCP - General Family Practice 01/02/14 [facility] 1999 [place] [address] Ingrid Santana, RN Registered Nurse Transplant 02/10/12 documented as of this encounter
--- OUTSIDE RECORDS SUMMARY | 2022-07-07 10:48 | XMS_ITS | Encounter Summary ---
:1950 Author Organization [place] Address [facility] [place] [address] Care Team Providers Name Role Phone Ingrid Santana RN Unavailable Unavailable Momo Forbes Primary Care Provider Encounter Details Date Type Department Care Team Description 12/27/2014 External Order Results The Transplant Ce nter Nurse, [facility] 2nd Floor, Clinic [address] [phone] Social History Tobacco Use [...] External Lab Result (12/25/2014 9:48 AM CDT) [facility] Method Time Signature Sodium 138 135 [...] 51 (L) >60 LABDE SCAN (if ml/min/1. Swiss) 73m2 (External) GFR Estimated 42 (L) >60 [...] on filedocumented in this encounter Care Teams Biomedical Service Engineer Relationship Specialty Start Date End Date Momo Forbes PCP - General Family Practice 01/02/14 [facility] [address] [place] [address] Ingrid Santana, RN Registered Nurse Transplant 02/10/12 documented as of this encounter
--- OUTSIDE RECORDS SUMMARY | 2022-07-07 10:48 | XMS_ITS | Encounter Summary ---
:1950 Author Organization [place] Address [address] [place] [address] Care Team Providers Name Role Phone Ingrid Santana RN Unavailable Unavailable Momo Forbes Primary Care Provider Joseph Quintana MD Unavailable Encounter Details Date Type Department Care Team Description 08/06/2014 External Order Results The Transplant Ce nter Nurse, [facility] 2nd Floor, Clinic [address]A [address] [place] [address] Social History Tobacco Use [...] 8:39 AM Results f or this RESULTS AGRICULTURAL TECHNICAL OFFICER procedure are i n the results section. documented in this encounter Results (ABNORMAL) TXP External Lab Result (08/05/2014 8:39 AM AGRICULTURAL TECHNICAL OFFICER) Analysis Performed At Patho logist Time [...] 55 (L) >60 LABDE SCAN (if ml/min/1.7 Grenadian) 3m2 (External) GFR Estimated 45 (L) >60 [...] / / Volume Laterality 08/05/2014 8:39 AM AGRICULTURAL TECHNICAL OFFICER Narrative JESSICA PFT - 08/06/2014 7:40 AM AGRICULTURAL TECHNICAL OFFICER Verified by Mary Whitehead on 08/06/2014. Patient Reported LABORATORY Performing Organization Address City/State/ZIP Code Phon e Number [facility] LABDE SCAN documented in this encounter Visit Diagnoses Not on filedocumented in this encounter Care Teams Rail Express Clerk Relationship Specialty Start Date End Date Momo Forbes PCP - General Family Practice 01/02/[address] [phone] Ingrid Santana, RN Registered Nurse Transplant 02/10/12 Joseph Quintana, Assigned Nephrology 03/29/21 MD Provider [address] [place] [address] documented as of this encounter
--- OUTSIDE RECORDS SUMMARY | 2022-07-07 10:48 | XMS_ITS | Encounter Summary ---
:1950 Author Organization [place] Address [address] [place] [address] Care Team Providers Name Role Phone Ingrid Santana RN Unavailable Unavailable Momo Forbes Primary Care Provider Joseph Quintana MD Unavailable Encounter Details Date Type Department Care Team Description 08/14/2015 External Order Results The Transplant Ce nter Nurse, [facility] 2nd Floor, Clinic [address]A [address] [phone] Social History Tobacco Use Types [...] 4:41 PM Results f or this RESULTS LEAK GANG SUPERVISOR procedure are i n the results section. documented in this encounter Results (ABNORMAL) TXP External Lab Result (08/12/2015 4:41 PM LEAK GANG SUPERVISOR) Analysis Performed At Patho logist Time [...] 59 (L) >60 LABDE SCAN (if mL/min/1.7 New Zealander) 3/m2 (External) GFR Estimated 48 (L) >60 [...] / / Volume Laterality 08/12/2015 4:41 PM LEAK GANG SUPERVISOR Narrative JESSICA PFT - 08/14/2015 9:25 AM LEAK GANG SUPERVISOR Verified by Freddy Mehta on 08/14. Patient Reported LABORATORY Performing Organization Address City/State/ZIP Code Phon e Number [facility] LABDE SCAN documented in this encounter Visit Diagnoses Not on filedocumented in this encounter Care Teams Drive Man Relationship Specialty Start Date End Date Momo Forbes PCP - General Family Practice 01/02/14 [facility] [address] [place] [address] Ingrid Santana, RN Registered Nurse Transplant 02/10/12 Joseph Quintana, Assigned Nephrology 03/29/21 MD Provider [address] [place] [address] 1932 [place] [address] documented as of this encounter
--- OUTSIDE RECORDS SUMMARY | 2022-07-07 10:48 | XMS_ITS | Encounter Summary ---
:1950 Author Organization [place] Address [facility] [place] [address] Care Team Providers Name Role Phone Ingrid Santana RN Unavailable Unavailable Momo Forbes Primary Care Provider Encounter Details Date Type Department Care Team Description 10/18/2014 External Order Results The Transplant Ce nter Nurse, [facility] 2nd Floor, Clinic [address]A [address] [phone] Social History Tobacco Use Types [...] 8:15 AM Results f or this RESULTS SHEET MANUFACTURING SUPERVISOR procedure are i n the results section. documented in this encounter Results (ABNORMAL) TXP External Lab Result (10/17/2014 8:15 AM SHEET MANUFACTURING SUPERVISOR) Analysis Performed At Patho logist Time [...] 56 (L) >60 LABDE SCAN (if ml/min/1.7 South Korean) 3m2 (External) GFR Estimated 46 (L) >60 [...] / / Volume Laterality 10/17/2014 8:15 AM SHEET MANUFACTURING SUPERVISOR Narrative JESSICA PFT - 10/18/2014 8:50 AM SHEET MANUFACTURING SUPERVISOR Verified by Maribel Plunkett on 10/18/19 15. Patient Reported LABORATORY Performing Organization Address City/State/ZIP Code Phon e Number [facility] LABDE SCAN documented in this encounter Visit Diagnoses Not on filedocumented in this encounter Care Teams Regional Cra Relationship Specialty Start Date End Date Momo Forbes PCP - General Family Practice 01/02/14 [facility] [address] [place] [address] Ingrid Santana, RN Registered Nurse Transplant 02/10/12 documented as of this encounter
--- OUTSIDE RECORDS SUMMARY | 2022-07-07 10:48 | XMS_ITS | Encounter Summary ---
:1950 Author Organization [place] Address [address] [place] [address] Care Team Providers Name Role Phone Ingrid Santana RN Unavailable Unavailable Momo Forbes Primary Care Provider Reason for Visit Reason Onset Date Comments Transplant 08/08/2014 immunosuppression ma neil Encounter Details Date Type Department Care Team Description 08/08/2014 Refill Nephrology Shiva Kahn, configuration consultant 2nd Floor, Clinic 2A [facility] (immunosuppression Sanders Wangensteen [address] [place] [address] management) Building [address] [place] [phone] Social History Tobacco Use Types Packs/Day Years [...] to lower Prograf dose to 1.5mg BID. ING MILL OPERATOR Telephone Encounter - Shiva Kahn RN - 08/08/2014 5:33 PM CST ISSUE: Tacrolimus level 9.0. New target tacrolimus levels 6-8 since patient is now 6 months post kidney transplant. PLAN: Decrease Prograf dose from 2 mg twice daily to 1.5 mg twice daily. TASK: Please call patient with instructions for dose change. 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
--- OUTSIDE RECORDS SUMMARY | 2022-07-07 10:48 | XMS_ITS | Encounter Summary ---
:1950 Author Organization [place] Address [facility] [place] [address] Care Team Providers Name Role Phone Ingrid Santana RN Unavailable Unavailable Momo Forbes Primary Care Provider Reason for Visit Reason Onset Date Comments Refill Request 04/21/2015 crestor Encounter Details Date Type Department Care Team Description 04/21/2015 Refill [facility] [address] Refill Request Physicians Orestes Hernandez MD (crestor) [facility] Building [place] 4th Floor, Clinic 4B [address] [place] [phone] [place] [address] (Wo rk) [address] [phone] Social History Tobacco Use Types Packs/Day Years [...] # refills: 11 [facility] Office [facility] with [facility] primary care provider: 05/14/14 CHOL 126 02/06/2014 HDL 35 02/06/2014 LDL 71 02/06/2014 TRIG 100 02/06/2014 CHOLHDLRATIO 3.6 02/06/2014 Gayathri Orta [facility] [address] [facility] [address] documented in this encounter Plan of Treatment Not on filedocumented as of this encounter Visit Diagnoses Diagnosis DM (diabetes mellitus), type 2 (H) - Ana ashley Type II or unspecified type diabetes aung litus without mention of complication, not stated as uncontrolled Other and unspecified hyperlipidemia documented in this encounter Care Teams Aeronautical Design Engineer Relationship Specialty Start Date End Date Momo Forbes PCP - General Family Practice 01/02/[address] [address] Ingrid Santana, RN Registered Nurse Transplant 02/10/12 documented as of this encounter
--- OUTSIDE RECORDS SUMMARY | 2022-07-07 10:48 | XMS_ITS | Encounter Summary ---
:1950 Author Organization [place] Address [address] [place] [address] Care Team Providers Name Role Phone Ingrid Santana RN Unavailable Unavailable Momo Forbes Primary Care Provider Reason for Visit Reason Onset Date Comments Refill Request 09/06/2014 Dok Plus Encounter Details Date Type Department Care Team Description 09/06/2014 Refill The Transplant Deysi Burns, Refill Request ([facility] 2nd Floor, Clinic 2A MD Plus) Tommy Wilburn [phone] [place] [address] [place] [address] Social History Tobacco Use Types [...] Fill Date: 02/08/14 Quantity: 100 Michael Manuel [facility] [phone] UP MACHINIST documented in this encounter Plan of Treatment Not on filedocumented as of this encounter Visit Diagnoses Diagnosis S/P kidney transplant - Primary Kidney replaced by transplant documented in this encounter Care Teams Sack Cleaner Relationship Specialty Start Date End Date Momo Forbes PCP - General Family Practice 01/02/14 [place] [phone] Ingrid Santana, RN Registered Nurse Transplant 02/10/12 documented as of this encounter
--- OUTSIDE RECORDS SUMMARY | 2022-07-07 10:48 | XMS_ITS | Encounter Summary ---
:1950 Author Organization [place] Address On license of [facility] [place] [address] Care Team Providers Name Role Phone Ingrid Santana RN Unavailable Unavailable Momo Forbes Primary Care Provider Reason for Visit Reason Onset Date Comments Refill Request 06/23/2015 amlodipine Encounter Details Date Type Department Care Team Description 06/23/2015 Refill [facility] [address] Refill Request Physicians Orestes Hernandez MD (amlodipine) [facility] Building [place] 4th Floor, Clinic 4B [address] [phone] (Wo rk) [address] [phone] Social History Tobacco Use Types Packs/Day Years [...] 05/13/14 139/73 04/09/14 163/78 Ada [facility] [phone] O PRODUCTION COORDINATOR documented in this encounter Plan of Treatment Not on filedocumented as of this encounter Visit Diagnoses Diagnosis HTN (hypertension) - Primary Unspecified essential hypertension documented in this encounter Care Teams Cook Fish And Chips Relationship Specialty Start Date End Date Momo Forbes PCP - General Family Practice 01/02/[address] [address] Ingrid Santana, RN Registered Nurse Transplant 02/10/12 documented as of this encounter
--- OUTSIDE RECORDS SUMMARY | 2022-07-07 10:48 | XMS_ITS | Encounter Summary ---
:1950 Author Organization [place] Address [address] [place] [address] Care Team Providers Name Role Phone Ingrid Santana RN Unavailable Unavailable Momo Forbes Primary Care Provider Joseph Quintana MD Unavailable Encounter Details Date Type Department Care Team Description 07/31/2014 External Order Results The Transplant Ce nter Nurse, [facility] 2nd Floor, Clinic [address] [phone] Social History Tobacco Use Types [...] 8:25 AM Results f or this RESULTS SCRIPT SUPERVISOR procedure are i n the results section. documented in this encounter Results (ABNORMAL) TXP External Lab Result (07/29/2014 8:25 AM SCRIPT SUPERVISOR) [facility] Method Time Signature Sodium (External) 138 [...] / / Volume Laterality 07/29/2014 8:25 AM SCRIPT SUPERVISOR Narrative BREEZE PFT - 07/31/2014 2:47 PM SCRIPT SUPERVISOR Verified by Nazia Duncan on 07/31/2014. Verified by Freddy Mehta on 07/31. Patient Reported LABORATORY Performing Organization Address City/State/ZIP Code Phon e Number BREEZE PFT LABDE SCAN documented in this encounter Visit Diagnoses Not on filedocumented in this encounter Care Teams Log Sorting Supervisor Relationship Specialty Start Date End Date Momo Forbes PCP - General Family Practice 01/02/14 [facility] [address] [place] [address] Ingrid Santana, RN Registered Nurse Transplant 02/10/12 Joseph Quintana, Assigned Nephrology 03/29/21 MD Provider [address] [place] [address] [address] [place], [place] [id number] documented as of this encounter
--- OUTSIDE RECORDS SUMMARY | 2022-07-07 10:48 | XMS_ITS | Encounter Summary ---
:1950 Author Organization [place] Address [address] [place] [address] Care Team Providers Name Role Phone Ingrid Santana RN Unavailable Unavailable Momo Forbes Primary Care Provider Encounter Details Date Type Department Care Team Description 07/22/2014 Orders Only [facility], Joseph Conor [facility], [facility] 500 [facility] [address] [place] [phone] [place] [address] 7[address] [place] [address] (Wo rk) Social History Tobacco [...] AM Resul ts for this SINGLE ANTIGEN FRUIT BUYER procedure are in the results section. HLA LUKASZ CLASS I Routine 07/29/2014 8:20 AM Result s for this SINGLE ANTIGEN FRUIT BUYER procedure are in the results section. TACROLIMUS BY TANDEM Routine 07/29/2014 8:20 AM R esults for this MASS SPECTROMETRY FRUIT BUYER procedure are in the results section. TACROLIMUS BY TANDEM Routine 07/22/2014 8:20 AM R esults for this MASS SPECTROMETRY FRUIT BUYER procedure are in the results section. documented in this encounter Results HLA Lukasz Class II Single Antigen (07/29/2014 8:20 AM FRUIT BUYER) [employer] Method Time Signature SA2 Test SA HI [...] Volume Laterality 07/29/2014 8:20 AM 4 3:26 FRUIT BUYER PM FRUIT BUYER Deysi Alicea MD LAB - IMMUNOLOGY ORDERABLES Performing Organization Address [facility] Phon e Number U HLA LABORATORY Immunology/Histocompatabil [place], [place] [address] [facility] 500 [facility], Room 3-580 HISTOTRAC HLA Lukasz Class I Single Antigen (07/29/2014 8:20 AM FRUIT BUYER) [employer] Method Time Signature SA1 Test SA HI [...] Volume Laterality 07/29/2014 8:20 AM 4 3:26 FRUIT BUYER PM FRUIT BUYER Deysi Alicea MD LAB - IMMUNOLOGY ORDERABLES Performing Organization Address [facility] Phon e Number U HLA LABORATORY Immunology/Histocompatabil [place], [place] [address] [facility] 500 [facility] [address] [facility] Building, Room 3-580 HISTOTRAC Tacrolimus level (07/29/2014 8:20 AM FRUIT BUYER) [facility] gist Method Time Signature Tacrolimus Last 1999 [facility] Dose 07/28/14 [facility] Tacrolimus 10.5 5.0 - [facility] Level 15.0 ug/L DELL [...] / Volume Laterality 07/29/2014 8:20 AM 4 FRUIT BUYER 11:17 AM FRUIT BUYER Deysi Alicea MD LAB - BLOOD ORDERABLES Performing Organization Address City/State/ZIP Code Phon e Number [facility] 500 [place] [address] [facility] Tacrolimus level (07/22/2014 8:20 AM FRUIT BUYER) [facility] gist Method Time Signature Tacrolimus Last 1929 [facility] Dose 07/21/14 [facility] Tacrolimus 10.8 5.0 - [facility] Level 15.0 ug/L DELL [...] / Volume Laterality 07/22/2014 8:20 AM 4 FRUIT BUYER 11:45 AM FRUIT BUYER Deysi Alicea MD LAB - BLOOD ORDERABLES Performing Organization Address City/State/ZIP Code Phon e Number [facility] 500 [place] [address] [facility] documented in this encounter Visit Diagnoses Not on filedocumented in this encounter Care Teams Technical Publications Writer Relationship Specialty Start Date End Date Momo Forbes PCP - General Family Practice 01/02/14 [facility] [address] [place] [address] Ingrid Santana, RN Registered Nurse Transplant 02/10/12 documented as of this encounter
--- OUTSIDE RECORDS SUMMARY | 2022-07-07 10:48 | XMS_ITS | Encounter Summary ---
:1950 Author Organization [place] Address [facility] [place] [address] Care Team Providers Name Role Phone Ingrid Santana RN Unavailable Unavailable Momo Forbes Primary Care Provider Encounter Details Date Type Department Care Team Description 08/03/2014 Abstract The Transplant [facility] 2nd Floor, Clinic [address]A [address] [phone] Social History Tobacco Use [...] on filedocumented in this encounter Care Teams Realtime Reporter Relationship Specialty Start Date End Date Momo Forbes PCP - General Family Practice 01/02/14 [facility] [address] [place] [address] Ingrid Santana, RN Registered Nurse Transplant 02/10/12 documented as of this encounter
--- OUTSIDE RECORDS SUMMARY | 2022-07-07 10:48 | XMS_ITS | Encounter Summary ---
:1950 Author Organization [place] Address [address] [place] [address] Care Team Providers Name Role Phone Ingrid Santana RN Unavailable Unavailable Momo Forbes Primary Care Provider Reason for Visit Reason Onset Date Comments Medication Question 01/17/2015 Encounter Details Date Type Department Care Team Description 01/17/2015 Telephone PHARMACY Beny Staton Geovanni Medication Question 500 [facility] [place] [address] PHARMACY [phone] [place] [address] Social History Tobacco Use Types [...] keep better tabs. His last to in [employer] were good but that was 8 months ago. Beny Staton [facility] Specialty Pharmacist [phone] documented in this encounter Plan of Treatment Not on filedocumented as of this encounter Visit Diagnoses Not on filedocumented in this encounter Care Teams Staff Design Engineer Relationship Specialty Start Date End Date Momo Forbes PCP - General Family Practice 01/02/14 [facility] [address] [place] [address] Ingrid Santana, RN Registered Nurse Transplant 02/10/12 documented as of this encounter
--- OUTSIDE RECORDS SUMMARY | 2022-07-07 10:48 | XMS_ITS | Encounter Summary ---
:1950 Author Organization [place] Address [facility] [place] [address] Care Team Providers Name Role Phone Ingrid Santana RN Unavailable Unavailable Momo Forbes Primary Care Provider Reason for Visit Reason Onset Date Comments Transplant 12/31/2014 Encounter Details Date Type Department Care Team Description 12/31/2014 Telephone [facility] Transplant [facility] [address] [place] [phone] Social History Tobacco Use Types [...] on filedocumented in this encounter Care Teams Poultry Farmer Meat Relationship Specialty Start Date End Date Momo Forbes PCP - General Family Practice 01/02/14 [facility] 1999 [place] [address] Ingrid Santana RN Registered Nurse Transplant 02/10/12 documented as of this encounter
--- OUTSIDE RECORDS SUMMARY | 2022-07-07 10:49 | XMS_ITS | Encounter Summary ---
:1950 Author Organization [place] Address [facility] [place] [address] Care Team Providers Name Role Phone Ingrid Santana RN Unavailable Unavailable Momo Forbes Primary Care Provider Encounter Details Date Type Department Care Team Description 06/07/2014 External Order Results The Transplant Ce nter Nurse, [facility] 2nd Floor, Clinic [address]A [address] [phone] Social History Tobacco Use Types [...] Result (06/05/2014 8:30 AM CDT) [facility] Method Time Signature Sodium (External) 138 [...] filedocumented in this encounter Care Teams Hot Room Attendant Relationship Specialty Start Date End Date Momo Forbes PCP - General Family Practice 01/02/14 [facility] [address] [place] [address] Ingrid Santana, RN Registered Nurse Transplant 02/10/12 2 documented as of this encounter
--- OUTSIDE RECORDS SUMMARY | 2022-07-07 10:49 | XMS_ITS | Encounter Summary ---
:1950 Author Organization [place] Address [address] [place] [address] Care Team Providers Name Role Phone Ingrid Santana RN Unavailable Unavailable Momo Forbes Primary Care Provider Joseph Quintana MD Unavailable Encounter Details Date Type Department Care Team Description 05/27/2014 External Order Results The Transplant Ce nter Nurse, [facility] 2nd Floor, Clinic 2A [address] [place] [address] Social History Tobacco Use [...] Estimated >60 >60 LABDE SCAN (if ml/min/1.7 Fijian) 3m2 (External) GFR Estimated 52 (L) >60 [...] on filedocumented in this encounter Care Teams Tinsmith Apprentice Relationship Specialty Start Date End Date Momo Forbes PCP - General Family Practice 01/02/14 [facility] 1999 [place], [place] [phone] Ingrid Santana, RN Registered Nurse Transplant 02/10/12 Joseph Quintana, Assigned Nephrology 03/29/21 MD Provider [address] [place] [address] documented as of this encounter
--- OUTSIDE RECORDS SUMMARY | 2022-07-07 10:49 | XMS_ITS | Encounter Summary ---
:1950 Author Organization [place] Address [facility] [address] Care Team Providers Name Role Phone Ingrid Santana RN Unavailable Unavailable Momo Forbes Primary Care Provider Encounter Details Date Type Department Care Team Description 06/17/2014 External Order Results The Transplant Ce nter Nurse, [facility] 2nd Floor, Clinic [address]A [address] [phone] Social History Tobacco Use Types [...] 57 (L) >60 LABDE SCAN (if ml/min/1.7 Tristanian) 3m2 (External) GFR Estimated 47 (L) >60 [...] filedocumented in this encounter Care Teams Painter Helper Sign Relationship Specialty Start Date End Date Momo Forbes PCP - General Family Practice 01/02/14 [facility] [address] [place] [phone] Ingrid Santana, RN Registered Nurse Transplant 02/10/12 documented as of this encounter
--- OUTSIDE RECORDS SUMMARY | 2022-07-07 10:49 | XMS_ITS | Encounter Summary ---
:1950 Author Organization [place] Address [facility] [place] [address] Care Team Providers Name Role Phone Ingrid Santana RN Unavailable Unavailable Momo Forbes Primary Care Provider Encounter Details Date Type Department Care Team Description 06/10/2014 External Order Results The Transplant Ce nter Nurse, [facility] 2nd Floor, Clinic 2A [address] [phone] Social History Tobacco Use Types [...] 60 (L) >60 LABDE SCAN (if ml/min/1.7 Bolivian) 3m2 (External) GFR Estimated 49 (L) >60 [...] on filedocumented in this encounter Care Teams Headlight Assembler Relationship Specialty Start Date End Date Momo Forbes PCP - General Family Practice 01/02/14 [facility] [address] [place] [address] Ingrid Santana, RN Registered Nurse Transplant 02/10/12 documented as of this encounter
--- OUTSIDE RECORDS SUMMARY | 2022-07-07 10:49 | XMS_ITS | Encounter Summary ---
:1950 Author Organization [place] Address [address] [place] [address] Care Team Providers Name Role Phone Ingrid Santana RN Unavailable Unavailable Momo Forbes Primary Care Provider Joseph Quintana MD Unavailable Encounter Details Date Type Department Care Team Description 07/10/2014 External Order Results The Transplant Ce nter Nurse, [facility] 2nd Floor, Clinic [address]A [address] [place] [address] Social History Tobacco Use Types [...] 8:17 AM Results f or this RESULTS EDUCATIONAL ASSISTANT procedure are i n the results section. documented in this encounter Results (ABNORMAL) TXP External Lab Result (07/08/2014 8:17 AM EDUCATIONAL ASSISTANT) Analysis Performed At Patho logist Time [...] Estimated >60 >60 LABDE SCAN (if ml/min/1.7 Panamanian) 3m2 (External) GFR Estimated 51 (L) >60 [...] / / Volume Laterality 07/08/2014 8:17 AM EDUCATIONAL ASSISTANT Narrative JESSICA PFT - 07/10/2014 6:20 AM EDUCATIONAL ASSISTANT Verified by Janee Alexis on 07/10/2014 . Patient Reported LABORATORY Performing Organization Address City/State/ZIP Code Phon e Number BREEZE PFT LABDE SCAN documented in this encounter Visit Diagnoses Not on filedocumented in this encounter Care Teams Rn Acute Dialysis Relationship Specialty Start Date End Date Momo Forbes PCP - General Family Practice 01/02/[address] [address] Ingrid Santana, RN Registered Nurse Transplant 02/10/12 Joseph Quintana, Assigned Nephrology 03/29/21 MD Provider [address] [place] [address] documented as of this encounter
--- OUTSIDE RECORDS SUMMARY | 2022-07-07 10:49 | XMS_ITS | Encounter Summary ---
:1950 Author Organization [place] Address [facility] [place] [address] Care Team Providers Name Role Phone Ingrid Santana RN Unavailable Unavailable Momo Forbes Primary Care Provider Encounter Details Date Type Department Care Team Description 05/27/2014 Orders Only Nephrology Shiva Kahn RN -donor kidney 2nd Floor, Clinic 2A [facility] transplant recipient Tommy Ruizfelisa [address] [place] [phone] Social History Tobacco Use Types Packs/Day Years [...] transplant documented in this encounter Care Teams Income Tax Administrator Relationship Specialty Start Date End Date Momo Forbes PCP - General Family Practice 01/02/[address] [address] Ingrid Santana RN Registered Nurse Transplant 02/10/12 documented as of this encounter
--- OUTSIDE RECORDS SUMMARY | 2022-07-07 10:49 | XMS_ITS | Encounter Summary ---
:1950 Author Organization [place] Address [facility] [place] [address] Care Team Providers Name Role Phone Ingrid Santana RN Unavailable Unavailable Momo Forbes Primary Care Provider Reason for Visit Reason Onset Date Comments Transplant 06/20/2014 FK 6.6 Encounter Details Date Type Department Care Team Description 06/20/2014 Telephone Nephrology Carmelita Rosario, Transplant (FK 6.6) 2nd Floor, Clinic 2A [place] [phone] Social History Tobacco Use Types Packs/Day [...] transplant documented in this encounter Care Teams R D Manager Relationship Specialty Start Date End Date Momo Forbes PCP - General Family Practice 01/02/[address] [address] Ingrid Santana, RN Registered Nurse Transplant 02/10/12 documented as of this encounter
--- OUTSIDE RECORDS SUMMARY | 2022-07-07 10:49 | XMS_ITS | Encounter Summary ---
:1950 Author Organization [place] Address [address] [place] [address] Care Team Providers Name Role Phone Ingrid Santana RN Unavailable Unavailable Momo Forbes Primary Care Provider Joseph Quintana MD Unavailable Encounter Details Date Type Department Care Team Description 06/24/2014 External Order Results The Transplant Ce nter Nurse, [facility] 2nd Floor, Clinic 2A [address] [place] [address] Social History Tobacco Use [...] 8:37 AM Results f or this RESULTS SKILL LABOR procedure are i n the results section. documented in this encounter Results (ABNORMAL) TXP External Lab Result (06/24/2014 8:37 AM SKILL LABOR) Analysis Performed At Patho logist Time Signature [...] 54 (L) >60 LABDE SCAN (if ml/min/1.7 Canadian) 3m2 (External) GFR Estimated 44 (L) >60 [...] / / Volume Laterality 06/24/2014 8:37 AM SKILL LABOR Narrative JESSICA PFT - 06/24/2014 2:52 PM SKILL LABOR Verified by Sofie Verdin on 4. Patient Reported LABORATORY Performing Organization Address City/State/ZIP Code Phon e Number BREEZE PFT LABDE SCAN documented in this encounter Visit Diagnoses Not on filedocumented in this encounter Care Teams Sociology Adjunct Instructor Relationship Specialty Start Date End Date Momo Forbes PCP - General Family Practice 01/02/14 [place] [phone] Ingrid Santana, RN Registered Nurse Transplant 02/10/12 Joseph Quintana, Assigned Nephrology 03/29/21 MD Provider [address] [place] [phone] documented as of this encounter
--- OUTSIDE RECORDS SUMMARY | 2022-07-07 10:49 | XMS_ITS | Encounter Summary ---
:1950 Author Organization [place] Address [address] [place] [address] Care Team Providers Name Role Phone Ingrid Santana RN Unavailable Unavailable Momo Forbes Primary Care Provider Encounter Details Date Type Department Care Team Description 05/22/2014 Orders Only [facility], [facility], [facility] jm ID [address] [phone] [place] [address] 323 [place] [address] (Wo rk) Social History Tobacco [...] Results Tacrolimus level (06/17/2014 8:05 AM CDT) [facility] gist Method Time Signature Tacrolimus Last 06/16/14 [facility] Dose 2000 [facility] Tacrolimus 6.5 5.0 - [facility] Level 15.0 ug/L [facility] Comment: Tacrolimus Reference Range Kidney Transplant Pediatric [...] Code Phon e Number [facility] 500 [place] [address] [facility] Tacrolimus level (06/10/2014 7:52 AM CDT) [facility] gist Method Time Signature Tacrolimus Last 1999 [facility] Dose 06/09/14 [facility] Tacrolimus 7.9 5.0 - [facility] Level 15.0 ug/L [facility] Comment: Tacrolimus Reference Range Kidney Transplant [...] Code Phon e Number [facility] 500 [place] [address] [facility] Tacrolimus level (06/05/2014 8:28 AM CDT) [facility] gist Method Time Signature Tacrolimus Last 1999 [facility] Dose 06/04/14 [facility] Tacrolimus 7.9 5.0 - [facility] Level 15.0 ug/L [facility] Comment: Tacrolimus Reference Range Kidney Transplant [...] [facility]/ZIP Code Phon e Number [facility] [address] LABS Tacrolimus level (05/24/2014 8:05 AM CDT) [facility] gist Method Time Signature Tacrolimus 05/23/14 [facility] Last Dose 20:00 [facility] Tacrolimus Test 5.0 - [facility] Level canceled - 15.0 ug/L [facility] LAB[facility] entry error Specimen Anatomical Collection Method Collection Time Receive d Time (Source) Location / / Volume Laterality 05/24/2014 8:05 AM 4 2:49 CDT PM CDT Deysi Alicea MD LAB - BLOOD ORDERABLES Performing Organization Address City/[facility]/ZIP Code Phon e Number [facility] [address] LABS Tacrolimus level (05/24/2014 8:05 AM CDT) [facility] gist Method Time Signature Tacrolimus Last 05/23/14 [facility] Dose 20:00 [facility] Tacrolimus 5.8 5.0 - [facility] Level 15.0 ug/L [facility] Comment: Tacrolimus Reference Range Kidney Transplant [...] Code Phon e Number [facility] [address] LABS documented in this encounter Visit Diagnoses Not on filedocumented in this encounter Care Teams Dental Director Relationship Specialty Start Date End Date Momo Forbes PCP - General Family Practice 01/02/14 [facility] 1999 [place] [address] Ingrid Santana, RN Registered Nurse Transplant 02/10/12 documented as of this encounter
--- OUTSIDE RECORDS SUMMARY | 2022-07-07 10:49 | XMS_ITS | Encounter Summary ---
:1950 Author Organization [place] Address [address] [place] [address] Care Team Providers Name Role Phone Ingrid Santana RN Unavailable Unavailable Momo Forbes Primary Care Provider Joseph Quintana MD Unavailable Encounter Details Date Type Department Care Team Description 06/08/2014 External Order Results The Transplant Ce nter Nurse, [facility] 2nd Floor, Clinic [address]A [address] [place] [address] Social History Tobacco Use Types [...] External Lab Result (06/05/2014 8:30 AM CDT) [facility] Method [...] on filedocumented in this encounter Care Teams Dairy Feed Sales Consultant Relationship Specialty Start Date End Date Momo Forbes PCP - General Family Practice 01/02/14 [facility] 1999 [place] [address] Ingrid Santana, RN Registered Nurse Transplant 02/10/12 Joseph Quintana, Assigned Nephrology 03/29/21 MD Provider [address] [place] [address] 1932 [place] [address] documented as of this encounter
--- OUTSIDE RECORDS SUMMARY | 2022-07-07 10:49 | XMS_ITS | Encounter Summary ---
:1950 Author Organization [place] Address [address] [place] [address] Care Team Providers Name Role Phone Ingrid Santana RN Unavailable Unavailable Momo Forbes Primary Care Provider Joseph Quintana MD Unavailable Encounter Details Date Type Department Care Team Description 07/03/2014 External Order Results The Transplant Ce nter Nurse, [facility] 2nd Floor, Clinic 2A [address] [place] [address] Social History Tobacco Use Types [...] 8:27 AM Results f or this RESULTS WARRANTY ADMINISTRATOR procedure are i n the results section. documented in this encounter Results (ABNORMAL) TXP External Lab Result (07/01/2014 8:27 AM WARRANTY ADMINISTRATOR) Analysis Performed At Patho logist Time Signature [...] Citizen Of [place]) 3m2 (External) GFR Estimated 47 (L) >60 [...] / / Volume Laterality 07/01/2014 8:27 AM WARRANTY ADMINISTRATOR Narrative JESSICA PFT - 07/03/2014 2:18 PM WARRANTY ADMINISTRATOR Verified by Xiomara Bello on 07/03/20 14. Patient Reported LABORATORY Performing Organization Address City/State/ZIP Code Phon e Number BREEZE PFT LABDE SCAN documented in this encounter Visit Diagnoses Not on filedocumented in this encounter Care Teams Immigration Investigator Relationship Specialty Start Date End Date Momo Forbes PCP - General Family Practice 01/02/14 [place] [phone] Ingrid Santana, RN Registered Nurse Transplant 02/10/12 Joseph Quintana, Assigned Nephrology 03/29/21 MD Provider [address] [place] [phone] documented as of this encounter
--- OUTSIDE RECORDS SUMMARY | 2022-07-07 10:49 | XMS_ITS | Encounter Summary ---
:1950 Author Organization [place] Address [address] [place] [address] Care Team Providers Name Role Phone Ingrid Santana RN Unavailable Unavailable Momo Forbes Primary Care Provider Encounter Details Date Type Department Care Team Description 06/22/2014 Orders Only [facility], Joseph Conor [facility] jm [place] [address] [phone] [place] [address] [address] [place] [address] (Wo rk) Social History Tobacco [...] AM R esults for this MASS SPECTROMETRY LINUX UNIX ADMINISTRATOR procedure are in the results section. TACROLIMUS BY TANDEM Routine 07/08/2014 8:15 AM R esults for this MASS SPECTROMETRY LINUX UNIX ADMINISTRATOR procedure are in the results section. TACROLIMUS BY TANDEM Routine 07/01/2014 8:25 AM R esults for this MASS SPECTROMETRY LINUX UNIX ADMINISTRATOR procedure are in the results section. TACROLIMUS BY TANDEM Routine 06/24/2014 8:30 AM R esults for this MASS SPECTROMETRY LINUX UNIX ADMINISTRATOR procedure are in the results section. documented in this encounter Results Tacrolimus level (07/15/2014 8:25 AM LINUX UNIX ADMINISTRATOR) [facility] gist Method Time Signature Tacrolimus Last 07/14/14 [facility] Dose 2000 [facility] Tacrolimus 8.1 5.0 - [facility] Level 15.0 ug/L [facility] Comment: Tacrolimus Reference [...] / Volume Laterality 07/15/2014 8:25 AM 4 LINUX UNIX ADMINISTRATOR 10:56 AM LINUX UNIX ADMINISTRATOR Deysi Alicea MD LAB - BLOOD ORDERABLES Performing Organization Address City/State/ZIP Code Phon e Number [facility] [address] [place] [address] [facility] Tacrolimus level (07/08/2014 8:15 AM LINUX UNIX ADMINISTRATOR) [facility] gist Method Time Signature Tacrolimus Last 2000 [facility] Dose 07/07/14 [facility] Tacrolimus 8.6 5.0 - [facility] Level 15.0 ug/L [facility] Comment: Tacrolimus Reference [...] / Volume Laterality 07/08/2014 8:15 AM 4 LINUX UNIX ADMINISTRATOR 11:03 AM LINUX UNIX ADMINISTRATOR Deysi Alicea MD LAB - BLOOD ORDERABLES Performing Organization Address City/State/ZIP Code Phon e Number [facility] [address] [place] [address] [facility] Tacrolimus level (07/01/2014 8:25 AM LINUX UNIX ADMINISTRATOR) [facility] gist Method Time Signature Tacrolimus Last 1999, [facility] Dose 06/30/14 [facility] Tacrolimus 9.3 5.0 - [facility] Level 15.0 ug/L [facility] Comment: Tacrolimus Reference Range Kidney Transplant Pediatric [...] / Volume Laterality 07/01/2014 8:25 AM 4 LINUX UNIX ADMINISTRATOR 12:11 PM LINUX UNIX ADMINISTRATOR Mingo Dangelo MD LAB - BLOOD ORDERABLES Performing Organization Address City/State/ZIP Code Phon e Number [facility] [address] [place] [address] [facility] Tacrolimus level (06/24/2014 8:30 AM LINUX UNIX ADMINISTRATOR) [facility] gist Method Time Signature Tacrolimus Last 1999 [facility] Dose 06/23/14 [facility] Tacrolimus 10.5 5.0 - [facility] Level 15.0 ug/L [facility] Comment: Tacrolimus Reference [...] / Volume Laterality 06/24/2014 8:30 AM 4 LINUX UNIX ADMINISTRATOR 11:18 AM LINUX UNIX ADMINISTRATOR Deysi Alicea MD LAB - BLOOD ORDERABLES Performing Organization Address City/State/ZIP Code Phon e Number [facility] [address] [place] [address] [facility] documented in this encounter Visit Diagnoses Not on filedocumented in this encounter Care Teams Quantitative Manager Relationship Specialty Start Date End Date Momo Forbes PCP - General Family Practice 01/02/14 [facility] [address] [place] [address] Ingrid Santana, RN Registered Nurse Transplant 02/10/12 documented as of this encounter
--- OUTSIDE RECORDS SUMMARY | 2022-07-07 10:50 | XMS_ITS | Encounter Summary ---
:1950 Author Organization [place] Address [facility] [place] [address] Care Team Providers Name Role Phone Ingrid Santana RN Unavailable Unavailable Momo Forbes Primary Care Provider Encounter Details Date Type Department Care Team Description 05/02/2014 Orders Only Nephrology Shiva Kahn RN -donor kidney 2nd Floor, Clinic 2A [facility] transplant recipient Tommy Ruizfelisa [address] [place] [phone] Social History Tobacco Use Types Packs/Day Years [...] transplant documented in this encounter Care Teams Cracking Machine Operator Relationship Specialty Start Date End Date Momo Forbes PCP - General Family Practice 01/02/[address] [address] Ingrid Santana RN Registered Nurse Transplant 02/10/12 documented as of this encounter
--- OUTSIDE RECORDS SUMMARY | 2022-07-07 10:50 | XMS_ITS | Encounter Summary ---
:1950 Author Organization [place] Address [facility] [place] [address] Care Team Providers Name Role Phone Ingrid Santana RN Unavailable Unavailable Momo Forbes Primary Care Provider Reason for Visit Reason Comments RECHECK 3 month Tx follow Up Encounter Details Date Type Department Care Team Description 05/13/2014 Office Visit Nephrology Deysi Alicea, DM (diabetes mellitus), type 2 (H) (Primary Dx); 2nd Floor, Clinic 2A MD S/P kidney transplant Tommy Wilburn [id number] [place] [address] (Wo rk) [address] [phone] Social History Tobacco Use Types Packs/Day Years [...] on Cumadin; Cumadin was stopped by station mechanic helper during the follow up visit, as he [...] Years of Education: 14 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
--- OUTSIDE RECORDS SUMMARY | 2022-07-07 10:50 | XMS_ITS | Encounter Summary ---
:1950 Author Organization [place] Address [facility] [place] [address] Care Team Providers Name Role Phone Ingrid Santana RN Unavailable Unavailable Momo Forbes Primary Care Provider Reason for Visit Reason Comments Heart Problem 2 m f/u Post op AFIB s/p DCC V. on warfarin 4 weeks Encounter Details Date Type Department Care Team Description 04/09/2014 [facility] Atrial fibrill ation (H) (Primary Dx); [facility] Enrique Maria pecified essential hypertension; Heart Other and unspecified hyperlipidemia; Tommy [facility] DM (diabetes mellitus), type 2 (H) Building [place] 4th Floor, Clinic 4B [address] [phone] [place], [place] (Work) [address] [phone] Social History Tobacco Use Types Packs/Day Years [...] questions or concerns. 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 Smoking [...] 04/01/2014 Negative NEG mg/dL Final ??? Specific [place] Urine 04/01/2014 1.017 1.003 - 1.035 Final [...] NEG Ketones Urine Negative NEG mg/dL Specific [place] Urine 1.017 1.003 - 1.035 Blood Urine [...] uncontrolled documented in this encounter Care Teams Estimation Manager Relationship Specialty Start Date End Date Momo Forbes PCP - General Family Practice 01/02/14 [facility] [address] [place] [address] Ingrid Santana, RN Registered Nurse Transplant 02/10/12 documented as of this encounter
--- OUTSIDE RECORDS SUMMARY | 2022-07-07 10:50 | XMS_ITS | Encounter Summary ---
:1950 Author Organization [place] Address [address] [place] [address] Care Team Providers Name Role Phone Ingrid Santana RN Unavailable Unavailable Momo Forbes Primary Care Provider Encounter Details Date Type Department Care Team Description 04/22/2014 Orders Only [facility], [facility], [facility] jm [place] [address] [phone] [place] [address] [address] [place] [address] (Wo rk) Social History [...] (ABNORMAL) Tacrolimus level (05/17/2014 8:17 AM CDT) [facility] Method Time Signature Tacrolimus Last 05/16/2014 [facility] Dose 2000 [facility] Tacrolimus 4.4 (L) 5.0 - [facility] Level 15.0 ug/L [facility] Comment: Tacrolimus Reference Range Kidney Transplant [...] Phon e Number [facility] [address] [place], [place] [id number] [place] [address] [facility] (ABNORMAL) Tacrolimus level (05/15/2014 8:15 AM CDT) [facility] gist Method Time Signature Tacrolimus Last 05/14/14 [facility] Dose 2000 [facility] Tacrolimus 4.6 (L) 5.0 - [facility] Level 15.0 ug/L [facility] Comment: Tacrolimus Reference Range Kidney Transplant [...] Phon e Number [facility] [address] [place] [address] [facility] Tacrolimus level (05/10/2014 8:50 AM CDT) [facility] gist Method Time Signature Tacrolimus Not Provided [facility] Dose [facility] Tacrolimus 14.3 5.0 - [facility] Level 15.0 ug/L [facility] Comment: Tacrolimus Reference Range Kidney Transplant [...] Phon e Number [facility] [address] [place] [address] [place] [facility] (ABNORMAL) Tacrolimus level (05/07/2014 8:15 AM CDT) [facility] gist Method Time Signature Tacrolimus Last 05/06/14 [facility] Dose 2000 [facility] Tacrolimus 15.9 (H) 5.0 - [facility] Level 15.0 ug/L [facility] Comment: Tacrolimus Reference Range Kidney Transplant [...] Phon e Number [facility] [address] [place], [place] [phone] [place] [address] [facility] Tacrolimus level (05/03/2014 8:13 AM CDT) [facility] gist Method Time Signature Tacrolimus Last [facility] Dose 2000 [facility] Tacrolimus 8.8 5.0 - [facility] Level 15.0 ug/L [facility] Comment: Tacrolimus Reference Range Kidney Transplant [...] Phon e Number [facility] [address] [place], [place] [id number] [place] [address] [facility] Tacrolimus level (04/30/2014 8:20 AM CDT) [facility] gist Method Time Signature Tacrolimus Last 04/29/14 [facility] Dose 2000 [facility] Tacrolimus 12.6 5.0 - [facility] Level 15.0 ug/L [facility] Comment: Tacrolimus Reference Range Kidney Transplant [...] Phon e Number [facility] [address] [place], [place] [phone] [place] [address] [facility] Tacrolimus level (04/26/2014 8:30 AM CDT) [facility] gist Method Time Signature Tacrolimus Last 04/25/14 [facility] Dose 1900 [facility] Tacrolimus 10.1 5.0 - [facility] Level 15.0 ug/L [facility] Comment: Tacrolimus Reference Range Kidney Transplant [...] Phon e Number [facility] [address] [place] [address] [facility] Tacrolimus level (04/24/2014 9:00 AM CDT) [facility] gist Method Time Signature Tacrolimus Last 04/23/14 [facility] Dose 1900 [facility] Tacrolimus 13.1 5.0 - [facility] Level 15.0 ug/L [facility] Comment: Tacrolimus Reference Range Kidney Transplant [...] Phon e Number [facility] [address] [place], [place] [phone] [place] [address] LABS documented in this encounter Visit Diagnoses Not on filedocumented in this encounter Care Teams Ase Master Mechanic Relationship Specialty Start Date End Date Momo Forbes PCP - General Family Practice 01/02/14 [facility] [address] [place] [address] Ingrid Santana, RN Registered Nurse Transplant 02/10/12 documented as of this encounter
--- OUTSIDE RECORDS SUMMARY | 2022-07-07 10:50 | XMS_ITS | Encounter Summary ---
:1950 Author Organization [place] Address [address] [facility] [place] [address] Care Team Providers Name Role Phone Ingrid Santana RN Unavailable Unavailable Momo Forbes Primary Care Provider Reason for Referral Specialty Diagnoses / Procedures Referred By Contact Refer red To Contact Migel Merchant MD [address] [facility] 195 [place], [place] [address] Referral ID Status Reason Start Date Expiration Date Visits Requ ested Visits Authorized Scheduling Instructions ANTICOAGULATION CLINIC COLLABORATIVE PRA CTICE AGREEMENT The following represents a collaborative practice agreement among the physicians of the Clinic and staff of the Anticoagulat ion Clinic Service ([facility]) Physicians shall: 1. Refer patients requiring anticoagulat ion to a specialty service staffed by personnel of Pharmacy Services and super vised by Clinic physicians. 2. Respond to questions and referrals fr pharmacy staff regarding delinquent or difficult patients. 3. Inform the [facility] staff when a new patie nt [...] home (current) use of anticoagulant s 420 [facility] 420 [facility] [phone] [place] [address] Social History Tobacco Use Types Packs/Day Years [...] Atrial fibrillation (H) - Primary Atrial fibrillation ocean transportation intermediary (current) use of anticoagulant s Long-term (current) use of anticoagulant s documented in this encounter Care Teams Us Marketing Director Relationship Specialty Start Date End Date Momo Forbes PCP - General Family Practice 01/02/14 [facility] [address] [place] [address] Ingrid Santana, RN Registered Nurse Transplant 02/10/12 documented as of this encounter
--- OUTSIDE RECORDS SUMMARY | 2022-07-07 10:50 | XMS_ITS | Encounter Summary ---
:1950 Author Organization [place] Address [facility] [place] [address] Care Team Providers Name Role Phone Ingrid Santana RN Unavailable Unavailable Momo Forbes Primary Care Provider Reason for Visit Reason Onset Date Comments Refill Request 04/05/2014 Tamy Cabrera Encounter Details Date Type Department Care Team Description 04/05/2014 Refill The Transplant Migel Martinez, Refill Request 2nd Floor, Clinic 2A [facility] 420 [facility] antoprazole) Building [facility] 195 6 [facility] [address] [place] [address] [phone] Social History Tobacco Use Types Packs/Day Years [...] Last Fill: 03/14/14 Qty: 30 [facility] [phone] documented in this encounter Plan of Treatment Not on filedocumented as of this encounter Visit Diagnoses Diagnosis S/P kidney transplant Kidney replaced by transplant Atrial fibrillation (H) Atrial fibrillation documented in this encounter Care Teams Supervisor Alteration Workroom Relationship Specialty Start Date End Date Momo Forbes PCP - General Family Practice 01/02/14 [facility] [address] [place] [address] Ingrid Santana, RN Registered Nurse Transplant 02/10/12 documented as of this encounter
--- OUTSIDE RECORDS SUMMARY | 2022-07-07 10:50 | XMS_ITS | Encounter Summary ---
:1950 Author Organization [place] Address [address] [place] [address]. [place] [address] Care Team Providers Name Role Phone Ingrid Santana RN Unavailable Unavailable Momo Forbes Primary Care Provider Encounter Details Date Type Department Care Team Description 04/04/2014 Orders Only Nephrology Shiva Kahn RN S/P kidney transplant 2nd Floor, Clinic [address]A [address] [phone] Social History Tobacco Use Types Packs/Day Years [...] transplant documented in this encounter Care Teams Call Or Contact Centre Coach Relationship Specialty Start Date End Date Momo Forbes PCP - General Family Practice 01/02/14 [facility] [address] [place] [address] Ingrid Santana RN Registered Nurse Transplant 02/10/12 documented as of this encounter
--- OUTSIDE RECORDS SUMMARY | 2022-07-07 10:50 | XMS_ITS | Encounter Summary ---
:1950 Author Organization [place] Address [facility] [place] [address] Care Team Providers Name Role Phone Ingrid Santana RN Unavailable Unavailable Momo Forbes Primary Care Provider Reason for Visit Reason Comments Heart Problem 6 week F/U Encounter Details Date Type Department Care Team Description 05/14/2014 [facility] es [facility] Kei Hernandez, shanon carey (Primary Heart MD Dx) [facility] [place] 4th Floor, Clinic 4B [address] [facility] [address] [address] [phone] [place], [place] (Work) [address] [phone] Social History Tobacco Use Types Packs/Day Years [...] or concerns. Rubi Howell RN Cardiology Machine Sorter documented in this encounter Progress Notes Kei [...] ramirez documented in this encounter Care Teams Copywriter Relationship Specialty Start Date End Date Momo Forbes PCP - General Family Practice 01/02/14 [place] [id number] Ingrid Santana, RN Registered Nurse Transplant 02/10/12 documented as of this encounter
--- OUTSIDE RECORDS SUMMARY | 2022-07-07 10:50 | XMS_ITS | Encounter Summary ---
:1950 Author Organization [place] Address [address] [place] [address] Care Team Providers Name Role Phone Ingrid Santana RN Unavailable Unavailable Momo Forbes Primary Care Provider Reason for Visit Reason Onset Date Comments Anticoagulation 03/29/2014 Encounter Details Date Type Department Care Team Description 03/29/2014 Telephone [facility] Mary Sheffield RN Anticoagulation Anticoagulation Clin [place] [phone] Social History Tobacco Use Types Packs/Day [...] \this patient. He has INRs done at [facility] He takes Warfarin 5 mg daily He developed Afib after surgery . He sees cardiologylater this month to determine if the Warfarin can be stopped. He is having a stent removed on Tuesday04/01/14 Spoke with the Oncall Dr Perez no need to stop Warfarin INR yesterday at [facility] was [address] Kahn [...] filedocumented in this encounter Care Teams Well Reactivator Operator Relationship Specialty Start Date End Date Momo Forbes PCP - General Family Practice 01/02/[address] [address] Ingrid Santana, RN Registered Nurse Transplant 02/10/12 documented as of this encounter
--- OUTSIDE RECORDS SUMMARY | 2022-07-07 10:50 | XMS_ITS | Encounter Summary ---
:1950 Author Organization [facility] Address [address] [place] [address] Care Team Providers Name Role Phone Ingrid Santana RN Unavailable Unavailable Momo Forbes Primary Care Provider Reason for Visit Auth/Cert - Closed Specialty Diagnoses / Procedures Referred By Contact Refer red To Contact Surgery Diagnoses S/P Kidney Transplant Uu Periop Procedures COMBINED CYSTOSCOPY, REMOVE STENT(S) 500 [place] [address] Phone: Fax: Referral ID Status Reason Start Date Expiration Date Visits Requ ested Visits Authorized [id number] Closed 1 1 Encounter Details Date Type Department Care Team Description 04/01/2014 Hospital Encounter [facility], Migel Evans, Same Day Surgery [place] [address] 500 [facility] [address] [place] [address] [place] [address] (Wo rk) Social History Tobacco Use Types [...] Scott RN - 04/01/2014 10:15 AM CDT [facility], [facility] Same-Day [facility] Adult Discharge Orders & Instructions [...] To contact a doctor, call or: ??? [phone] and ask for the resident consumer loan manager for (answered 24 hours a day) ??? Emergency Department: [facility]: [phone] (TTY for hearing impaired: [phone]) documented in this encounter Medications at Time [...] Component Value Ref Test Analysis Performed At [facility] gist Range Method Time Signature Specimen Unspecified [facility] Urine CAMPUS LABS Special Specimen [facility] [...] Organization Address City/State/ZIP Code Phon e Number [address] [address] [facility] UNIVERSITY C[facility] LABS [facility] MICROBIOLOGY (ABNORMAL) UA with Microscopic (04/01/2014 9:00 AM CDT) Component Value Ref Test Analysis Performed At [facility] gist Range Method Time Signature Color Urine Yellow [facility] LABS Appearance Urine Clear [facility] LABS Glucose Urine 30 (A) NEG [facility] mg/dL UNIVERSITY CAMPUS LABS Bilirubin Urine Negative NEG [facility] LABS Ketones Urine Negative NEG [facility] mg/dL UNIVERSITY CAMPUS LABS Specific [place] 1.017 1.003 - [facility] Urine 1.035 UNIVERSITY CAMPUS LABS Blood Urine Moderate (A) NEG [facility] UNIVERSITY CAMP[facility] LABS pH Urine 6.0 5.0 - [facility] 7.0 pH UNIVERSITY [place] LABS Protein Albumin 10 (A) NEG [facility] Urine mg/dL UNIVERSITY [place] LABS Urobilinogen Normal 0.0 - [facility] mg/dL 2.0 [place] mg/dL [place] LABS Nitrite Urine Negative NEG [facility]IVERSITY CAMP[facility] LABS Leukocyte Negative NEG [facility] Esterase Urine UNIVERSITY [place] LABS Source Unspecified [facility] Urine UNIVERSITY CAMPUS [...] - URINE ORDERABLES Performing Organization Address City/[facility]/ZIP Code Phon e Number [address] LABS (ABNORMAL) INR (04/01/2014 8:36 AM CDT) P athologist Signature INR 1.64 (H) 0.86 - 1.14 [place] [facility] LABS Specimen Anatomical Collection Method Collection Time Receive d Time (Source) Location / / Volume Laterality Blood specimen 04/01/2014 8:36 AM 014 8:41 (specimen) CDT AM CDT Momo Jimenez MD LAB - BLOOD ORDERABLES Performing Organization Address City/[facility]/ZIP Code Phon e Number [facility] [address] LABS EKG 12-lead, tracing only (04/01/2014 8:28 AM CDT) Patholo gist Method Time Signature Interpretation ECG Click View RADIOLOGY Image link RESULTS to view waveform and result Specimen (Source) Anatomical Collection Method Collection Time Re ceived Time Location / / Volume Laterality 04/01/2014 8:28 AM CDT Momo Jimenez MD ECG ORDERABLES Performing Organization Address City/[facility]/ZIP Code Phon e Number RADIOLOGY RESULTS Potassium (04/01/2014 8:11 AM CDT) athologist Signature Potassium 4.1 3.4 - 5.3 [facility] mmol/L [place] LABS Specimen Anatomical Collection Method Collection Time Receive d Time (Source) Location / / Volume Laterality Blood specimen 04/01/2014 8:11 AM 014 8:27 (specimen) CDT AM CDT Momo Jimenez MD LAB - BLOOD ORDERABLES Performing Organization Address [facility]/ZIP Code Phon e Number [address] LABS (ABNORMAL) Hemoglobin (04/01/2014 8:11 AM CDT) athologist Signature Hemoglobin 10.2 (L) 13.3 - [facility] 17.7 g/dL [place] LABS Specimen Anatomical Collection Method Collection Time Receive d Time (Source) Location / / Volume Laterality Blood specimen 04/01/2014 8:11 AM 014 8:27 (specimen) CDT AM CDT Momo Jimenez MD LAB - BLOOD ORDERABLES Performing Organization Address City/[facility]/ZIP Code Phon e Number [address] LABS (ABNORMAL) Glucose by meter (04/01/2014 8:02 AM CDT) athologist Signature Glucose 158 (H) 60 - 99 POINT OF CARE mg/dL TEST, GLUCOSE Specimen Anatomical Collection Method Collection Time Receive d Time (Source) Location / / Volume Laterality 04/01/2014 8:02 AM 4 8:05 CDT AM CDT Migel Merchant MD LAB - BEAKER POCT Performing Organization Address City/[facility]/ZIP Code Phon e Number [facility] POINT OF CARE TEST, GLUCOSE POINT OF CARE TEST, GLUCOSE documented in this encounter Visit Diagnoses Not on filedocumented in this encounter Active and Recently Administered Medications Times are shown in CDT. Scheduled Medication Order 03/30/2014 03/31/2014 04/01/2014 levofloxacin (LEVAQUIN) IVPB 500 mg (COMPLETED) 0850 (Given - Provider: Addis Brannon APRN DISPATCHER SHIP PILOT - Comment: Asked by Fellow to give [...] Intra-procedure documented in this encounter Care Teams Bullet Maker Relationship Specialty Start Date End Date Momo Forbes PCP - General Family Practice 01/02/14 [place] [id number] Ingrid Santana, RN Registered Nurse Transplant 02/10/12 documented as of this encounter
--- OUTSIDE RECORDS SUMMARY | 2022-07-07 10:50 | XMS_ITS | Encounter Summary ---
:1950 Author Organization [facility] Address [facility] [place] [address] Care Team Providers Name Role Phone Ingrid Santana RN Unavailable Unavailable Momo Forbes Primary Care Provider Encounter Details Date Type Department Care Team Description 05/10/2014 Orders Only Nephrology Shiva Kahn RN -donor kidney 2nd Floor, Clinic 2A [facility] transplant recipient Tommy Ruizfelisa [address] [place] [address] (Primary Dx) Building [address] [place] [phone] Social History Tobacco Use Types Packs/Day Years [...] transplant documented in this encounter Care Teams Aircraft Hydraulic Equipment Mechanic Relationship Specialty Start Date End Date Momo Forbes PCP - General Family Practice 01/02/[address] [address] Ingrid Santana RN Registered Nurse Transplant 02/10/12 documented as of this encounter
--- OUTSIDE RECORDS SUMMARY | 2022-07-07 10:50 | XMS_ITS | Encounter Summary ---
:1950 Author Organization [facility] [place] Address [address] [facility] [place] [address] Care Team Providers Name Role Phone Ingrid Santana RN Unavailable Unavailable Momo Forbes Primary Care Provider Reason for Visit Auth/Cert - Closed Specialty Diagnoses / Procedures Referred By Contact Refer red To Contact Surgery Diagnoses S/P Kidney Transplant Uu Periop Procedures COMBINED CYSTOSCOPY, REMOVE STENT(S) 500 [place] [address] Phone: Fax: Referral ID Status Reason Start Date Expiration Date Visits Requ ested Visits Authorized [id number] Closed 1 1 Encounter Details Date Type Department Care Team Description 04/01/2014 Anesthesia Event [facility] Clari Torres MD PeriOp Services [facility] ANESTHESIA 500 [place] [address] [place] [address] [place], [place] [address] (Wo rk) Anesthesia Record Procedure Summary Procedure [...] and alternatives discussed with: patient or sales support representative. I agree with the plan written [...] Intra-op documented in this encounter Care Teams Director Of Safety And Security Relationship Specialty Start Date End Date Momo Forbes PCP - General Family Practice 01/02/14 [place] [phone] Ingrid Santana, RN Registered Nurse Transplant 02/10/12 documented as of this encounter
--- OUTSIDE RECORDS SUMMARY | 2022-07-07 10:50 | XMS_ITS | Encounter Summary ---
:1950 Author Organization [place] Address [address] [place] [address] Care Team Providers Name Role Phone Ingrid Santana RN Unavailable Unavailable Momo Forbes Primary Care Provider Encounter Details Date Type Department Care Team Description 03/22/2014 Orders Only [facility], Joseph Conor [facility], [facility] jm [place] [address] [phone] [place] [address] 922 [place] [address] (Wo rk) Social History Tobacco [...] Results Tacrolimus level (04/19/2014 8:40 AM CDT) [facility] Method Time Signature Tacrolimus Not Provided [facility] Last Dose [facility] LABS Tacrolimus 10.3 5.0 - [facility] Level 15.0 ug/L [facility] [...] Phon e Number [facility] 500 [place], [place] [phone] [place] [address] [facility] LABS Tacrolimus level (04/16/2014 8:22 AM CDT) [facility] gist Method Time Signature Tacrolimus Not Provided [facility] Last Dose [facility] LABS Tacrolimus 9.1 5.0 - [facility] [...] Phon e Number [facility] 500 [place], [place] [phone] [place] [address] [facility] LABS Tacrolimus level (04/11/2014 8:40 AM CDT) [facility] gist Method Time Signature Tacrolimus Last 04/10/14 [facility] Dose 19:00 [facility] LABS Tacrolimus 14.4 5.0 - [facility] Level 15.0 ug/L [facility] [...] Phon e Number [facility] 500 [place] [address] [facility] LABS Tacrolimus level (04/09/2014 8:45 AM CDT) [facility] gist Method Time Signature Tacrolimus Last 04/08/14 [facility] Dose 2000 [facility] LABS Tacrolimus 11.7 5.0 - [facility] Level 15.0 ug/L [facility] [...] Phon e Number [facility] 500 [place], [place] [phone] [place] [address] [facility]S Tacrolimus level (04/05/2014 9:40 AM CDT) [facility] gist Method Time Signature Tacrolimus Last 1999 [facility] Dose 04/04/14 [facility] LAB[facility] Tacrolimus 9.7 5.0 - [facility] Level 15.0 ug/L [facility] [...] Phon e Number [facility] 500 [place] [address] [facility] LAB[facility] (ABNORMAL) Tacrolimus level (03/28/2014 8:30 AM CDT) [facility] gist Method Time Signature Tacrolimus Last 03/27/14 [facility] Dose 1900 [facility] LABS Tacrolimus 15.8 (H) 5.0 - [facility] Level 15.0 ug/L [facility] [...] Phon e Number [facility] 500 [place] [address] [facility] Tacrolimus level (03/26/2014 9:18 AM CDT) [facility] gist Method Time Signature Tacrolimus Last 03/25/14 [facility] Dose 1900 [facility] LABS Tacrolimus 9.2 5.0 - [facility] Level 15.0 ug/L [facility] [...] Phon e Number [facility] 500 [place], [place] [phone] [place] [address] [facility]S Tacrolimus level (03/14/2014 9:00 AM CDT) [facility] gist Method Time Signature Tacrolimus Last 1999 [facility] Dose 03/13/14 [facility] LABS Tacrolimus 9.5 5.0 - [facility] Level 15.0 ug/L [facility] [...] Address City/State/ZIP Code Phon e Number [id number] [place] [address] LABS documented in this encounter Visit Diagnoses Not on filedocumented in this encounter Care Teams Dimpling Machine Operator Relationship Specialty Start Date End Date Momo Forbes PCP - General Family Practice 01/02/14 [facility] 1999 [place] [address] Ingrid Santana, RN Registered Nurse Transplant 02/10/12 documented as of this encounter
--- OUTSIDE RECORDS SUMMARY | 2022-07-07 10:50 | XMS_ITS | Encounter Summary ---
:1950 Author Organization [place] Address [facility] [place] [address] Care Team Providers Name Role Phone Ingrid Santana RN Unavailable Unavailable Momo Forbes Primary Care Provider Reason for Visit Reason Onset Date Comments Pre Visit Planning - Done 05/13/2014 6 week f/u pos t op afib. medication changes last visit. Encounter Details Date Type Department Care Team Description 05/13/2014 PRE VISIT [facility] [address] Pre Visit Planning - Physicians Orestes Hernandez MD Done (6 week f/u post [facility] op afib. medication Building [place] changes last visit. ) 4th Floor, Clinic 4B [address] [phone] (Wo rk) [address] [phone] Social History Tobacco Use Types Packs/Day Years [...] on filedocumented in this encounter Care Teams Superannuation Clerk Relationship Specialty Start Date End Date Momo Forbes PCP - General Family Practice 01/02/[address] [address] Ingrid Santana, RN Registered Nurse Transplant 02/10/12 documented as of this encounter
--- OUTSIDE RECORDS SUMMARY | 2022-07-07 10:50 | XMS_ITS | Encounter Summary ---
:1950 Author Organization [place] Address [facility] [place] [address] Care Team Providers Name Role Phone Ingrid Santana RN Unavailable Unavailable Momo Forbes Primary Care Provider Reason for Visit Reason Comments RECHECK s/p kidney tx Auth/Cert - Closed Specialty Diagnoses / Procedures Referred By Contact Refer red To Contact Surgery Diagnoses S/P Kidney Transplant Uu Periop Procedures COMBINED CYSTOSCOPY, REMOVE STENT(S) 500 [place] [address] Phone: Fax: Referral ID Status Reason Start Date Expiration Date Visits Requ ested Visits Authorized [id number] Closed 1 1 Encounter Details Date Type Department Care Team Description 04/01/2014 Office Visit Nephrology Deysi Alicea Immunosuppressed status (H) (Primary Dx); 2nd Floor, Clinic MD Aline High risk medication use; 2A [facility] Kidney replaced by homeroan t; Tommy DOMÍNGUEZ S/P kidney transplant [place] [address] [place] [address] [place], [place] (Work) [address] [phone] Social History Tobacco Use Types Packs/Day Years [...] -no follow up, I will ask his public relations coordinator to obtain results from his local [...] at home regularly; BP checked by me [id number]; HE was previously on Metoprolol 12.5 mg [...] Years of Education: 14 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
--- OUTSIDE RECORDS SUMMARY | 2022-07-07 10:50 | XMS_ITS | Encounter Summary ---
:1950 Author Organization [place] Address [facility] [place] [address] Care Team Providers Name Role Phone Ingrid Santana RN Unavailable Unavailable Momo Forbes Primary Care Provider Reason for Visit Reason Onset Date Comments Refill Request 04/26/2014 Encounter Details Date Type Department Care Team Description 04/26/2014 Refill Nephrology Shiva Kahn RN Refill Request 2nd Floor, Clinic 2A [facility] [place] [address] [facility] [place], [place] [phone] [place] [address] [place] [phone] Social History Tobacco Use Types Packs/Day [...] transplant documented in this encounter Care Teams Tattoo Designer Relationship Specialty Start Date End Date Momo Forbes PCP - General Family Practice 01/02/14 [facility] 1999 [place] [address] Ingrid Santana RN Registered Nurse Transplant 02/10/12 documented as of this encounter
--- OUTSIDE RECORDS SUMMARY | 2022-07-07 10:50 | XMS_ITS | Encounter Summary ---
:1950 Author Organization [place] Address [address] [place] [address] Care Team Providers Name Role Phone Ingrid Santana RN Unavailable Unavailable Momo Forbes Primary Care Provider Joseph Quintana MD Unavailable Encounter Details Date Type Department Care Team Description 05/16/2014 External Order Results [facility] Transplant [facility] nter Nurse, [facility] 2nd Floor, Clinic [address]A [address] [place] [address] Social History Tobacco Use Types [...] Estimated >60 >60 LABDE SCAN (if ml/min/1.7 Albanian) 3m2 (External) GFR Estimated 52 (L) >60 [...] filedocumented in this encounter Care Teams Yarn Conditioner Relationship Specialty Start Date End Date Momo Forbes PCP - General Family Practice 01/02/14 [facility] [address] [place] [address] Ingrid Santana, RN Registered Nurse Transplant 02/10/12 Joseph Quintana, Assigned Nephrology 03/29/21 MD Provider [address] [place] [address] documented as of this encounter
--- OUTSIDE RECORDS SUMMARY | 2022-07-07 10:50 | XMS_ITS | Encounter Summary ---
:1950 Author Organization [place] Address [facility] [place] [address] Care Team Providers Name Role Phone Ingrid Santana RN Unavailable Unavailable Momo Forbes Primary Care Provider Reason for Visit Reason Onset Date Comments Patient Reminder 03/26/2014 Encounter Details Date Type Department Care Team Description 03/26/2014 Telephone Nephrology Yesenia Clements LPN Patient Reminder 2nd Floor, Clinic [address]A [address] [phone] Social History Tobacco Use [...] filedocumented in this encounter Care Teams Social Media Executive Relationship Specialty Start Date End Date Momo Forbes PCP - General Family Practice 01/02/14 [facility] 2000 [place] [address] Ingrid Santana, RN Registered Nurse Transplant 02/10/12 documented as of this encounter
--- OUTSIDE RECORDS SUMMARY | 2022-07-07 10:50 | XMS_ITS | Encounter Summary ---
:1950 Author Organization [place] Address [address] [place] [address]. [place] [address] Care Team Providers Name Role Phone Ingrid Santana RN Unavailable Unavailable Momo Forbes Primary Care Provider Reason for Visit Reason Onset Date Comments Patient Reminder 05/09/2014 Encounter Details Date Type Department Care Team Description 05/09/2014 Telephone Nephrology Yesenia Clements LPN Patient Reminder 2nd Floor, Clinic [address]A [address] [phone] Social History Tobacco Use [...] filedocumented in this encounter Care Teams Sand Mill Operator Relationship Specialty Start Date End Date Momo Forbes PCP - General Family Practice 01/02/14 [facility] 1999 [place] [address] Ingrid Santana, RN Registered Nurse Transplant 02/10/12 documented as of this encounter
--- OUTSIDE RECORDS SUMMARY | 2022-07-07 10:50 | XMS_ITS | Encounter Summary ---
:1950 Author Organization [place] Address [facility] [place] [address] Care Team Providers Name Role Phone Ingrid Santana RN Unavailable Unavailable Momo Forbes Primary Care Provider Reason for Visit Reason Onset Date Comments Pre Visit Planning - Done 04/08/2014 2 m f/u Post o p AFIB s/p DCCV. on warfarin 4 weeks Encounter Details Date Type Department Care Team Description 04/08/2014 PRE VISIT [facility] [address] Pre Visit Planning - Physicians Heart MD David Done (2 m f/u Post op [facility] AF IB s/p DCCV. on [facility] warfarin 4 weeks) 4th Floor, Clinic 4B [address] [phone] (Wo rk) [address] [phone] Social History Tobacco Use Types Packs/Day Years [...] filedocumented in this encounter Care Teams Sociology Research Assistant Relationship Specialty Start Date End Date Momo Forbes PCP - General Family Practice 01/02/[address] [address] Ingrid Santana, RN Registered Nurse Transplant 02/10/12 documented as of this encounter
--- OUTSIDE RECORDS SUMMARY | 2022-07-07 10:50 | XMS_ITS | Encounter Summary ---
:1950 Author Organization [place] Address [address] [place] [address] Care Team Providers Name Role Phone Ingrid Santana RN Unavailable Unavailable Momo Forbes Primary Care Provider Reason for Visit Auth/Cert - Closed Specialty Diagnoses / Procedures Referred By Contact Refer red To Contact Surgery Diagnoses S/P Kidney Transplant Uu Periop Procedures COMBINED CYSTOSCOPY, REMOVE STENT(S) 500 [place] [address] Phone: Fax: Referral ID Status Reason Start Date Expiration Date Visits Requ ested Visits Authorized [id number] Closed 1 1 Encounter Details Date Type Department Care Team Description 04/01/[address] [facility] Migel Merchant , [place] of Right Double PeriOp Services J Stent 500 [facility] 420 [facility] [place] [address] [place] [address] [place] [address] (Wo rk) Surgery Details Date/Time Status Location [...] Scott RN - 04/01/2014 10:15 AM CDT [facility], [place] Same-Day Surgery Adult Discharge Orders & Instructions [...] To contact a doctor, call or: ??? [phone] and ask for the resident drilling contractor for (answered 24 hours a day) ??? Emergency Department: [facility]: [phone] (TTY for hearing impaired: [phone]) documented in this encounter Medications at Time [...] Component Value Ref Test Analysis Performed At [facility] gist Range Method Time Signature Specimen Unspecified [facility] UNIVERSITY Description Urine CAMPUS LABS Special [...] Number [facility] [address] LABS [facility] MICROBIOLOGY (ABNORMAL) UA with Microscopic (04/01/2014 9:00 AM CDT) Component Value Ref Test Analysis Performed At Patholo gist Range Method Time Signature Color Urine Yellow [facility] CAMPUS LABS Appearance Urine Clear [facility] C[facility] LABS Glucose Urine 30 (A) NEG [facility] mg/dL UNIVERSITY CAMPUS LABS Bilirubin Urine Negative NEG [facility] CAMP[facility] LABS Ketones Urine Negative NEG [facility] mg/dL UN[facility]ERSITY [place] LABS Specific [place] 1.017 1.003 - [facility] Urine 1.035 [facility] [place] LABS Blood Urine Moderate (A) [facility]G [facility] LAB[facility] pH Urine 6.0 5.0 - [facility] 7.0 pH UNIVERSITY CAMPUS LABS Protein Albumin 10 (A) NEG [facility] Urine mg/dL [facility] [place] LABS Urobilinogen Normal 0.0 - [facility] mg/dL 2.0 UNIVERSITY mg/dL CAMPUS LABS Nitrite Urine Negative NEG [facility] UNIVERSITY CAMPUS LABS Leukocyte Negative NEG [facility] Esterase Urine [facility] [place] LABS Source Unspecified [facility] Urine UNIVERSITY CAMPUS [...] e Number [facility] [address] LABS (ABNORMAL) INR (04/01/2014 8:36 AM CDT) P athologist Signature INR 1.64 (H) 0.86 - 1.14 [facility] LABS Specimen Anatomical Collection Method Collection Time Receive d Time (Source) Location / / Volume Laterality Blood specimen 04/01/2014 8:36 AM 014 8:41 (specimen) CDT AM CDT Momo Jimenez MD LAB - BLOOD ORDERABLES Performing Organization Address City/[facility]/ZIP Code Phon e Number [facility] [address] LABS EKG 12-lead, tracing only (04/01/2014 8:28 AM CDT) [facility] gist Method Time Signature Interpretation ECG Click View RADIOLOGY Image link RESULTS to view waveform and result Specimen (Source) Anatomical Collection Method Collection Time Re ceived Time Location / / Volume Laterality 04/01/2014 8:28 AM CDT Momo Jimenez MD ECG ORDERABLES Performing Organization Address City/[facility]/ZIP Code Phon e Number RADIOLOGY RESULTS Potassium (04/01/2014 8:11 AM CDT) athologist Signature Potassium 4.1 3.4 - 5.3 [facility] mmol/L CAMPUS LABS Specimen Anatomical Collection Method Collection Time Receive d Time (Source) Location / / Volume Laterality Blood specimen 04/01/2014 8:11 AM 014 8:27 (specimen) CDT AM CDT Momo Jimenez MD LAB - BLOOD ORDERABLES Performing Organization Address City/[facility] Code Phon e Number [address] LABS (ABNORMAL) Hemoglobin (04/01/2014 8:11 AM CDT) athologist [facility] Hemoglobin 10.2 (L) 13.3 - [facility] 17.7 g/dL CAMPUS LABS Specimen Anatomical Collection Method Collection Time Receive d Time (Source) Location / / Volume Laterality Blood specimen 04/01/2014 8:11 AM 014 8:27 (specimen) CDT AM CDT Momo Jimenez MD LAB - BLOOD ORDERABLES Performing Organization Address City/[facility]/ZIP Code Phon e Number [address] LABS (ABNORMAL) Glucose by meter (04/01/2014 [...] 0850 (Given - Provider: Addis Brannon APRN AML ANALYST - Comment: Asked by Fellow to give [...] Intra-procedure documented in this encounter Care Teams Chief Load Dispatcher Relationship Specialty Start Date End Date Momo Forbes PCP - General Family Practice 01/02/[address] [address] Ingrid Santana, RN Registered Nurse Transplant 02/10/12 documented as of this encounter
--- OUTSIDE RECORDS SUMMARY | 2022-07-07 10:50 | XMS_ITS | Encounter Summary ---
:1950 Author Organization [place] Address [facility] [place] [address] Care Team Providers Name Role Phone Ingrid Santana RN Unavailable Unavailable Momo Forbes Primary Care Provider Encounter Details Date Type Department Care Team Description 05/20/2014 External Order Results The Transplant Ce nter Nurse, [facility] 2nd Floor, Clinic [address] [address] Social History Tobacco Use Types [...] 55 (L) >60 LABDE SCAN (if ml/min/1.7 [place]) 3m2 (External) GFR Estimated 46 (L) >60 [...] on filedocumented in this encounter Care Teams Shuttle Route Vehicle Operator Relationship Specialty Start Date End Date Momo Forbes PCP - General Family Practice 01/02/14 [facility] 1999 [place], [place] [phone] Ingrid Santana, RN Registered Nurse Transplant 02/10/12 documented as of this encounter
--- OUTSIDE RECORDS SUMMARY | 2022-07-07 10:50 | XMS_ITS | Encounter Summary ---
:1950 Author Organization [place] Address [facility] [place] [address] Care Team Providers Name Role Phone Ingrid Santana RN Unavailable Unavailable Momo Forbes Primary Care Provider Encounter Details Date Type Department Care Team Description 05/17/2014 Orders Only Nephrology Shiva Kahn RN -donor kidney 2nd Floor, Clinic 2A [facility] transplant recipient Tommy Ruizfelisa [address] [place] [address] (Primary Dx) Building [address] [place] [phone] Social History Tobacco Use Types Packs/Day Years [...] documented in this encounter Care Teams Health Promoter Relationship Specialty Start Date End Date Momo Forbes PCP - General Family Practice 01/02/[address] [address] Ingrid Santana RN Registered Nurse Transplant 02/10/12 documented as of this encounter
--- OUTSIDE RECORDS SUMMARY | 2022-07-07 10:50 | XMS_ITS | Encounter Summary ---
:1950 Author Organization [place] Address [facility] [place] [address] Care Team Providers Name Role Phone Ingrid Santana RN Unavailable Unavailable Momo Forbes Primary Care Provider Encounter Details Date Type Department Care Team Description 03/19/2014 Orders Only Nephrology Shiva Kahn RN -donor kidney 2nd Floor, Clinic 2A [facility] transplant recipient Tommy Ruizfelisa [address] [place] [phone] Social History Tobacco Use Types Packs/Day Years [...] transplant documented in this encounter Care Teams Substance Abuse Therapist Relationship Specialty Start Date End Date Momo Forbes PCP - General Family Practice 01/02/[address] [address] Ingrid Santana RN Registered Nurse Transplant 02/10/12 documented as of this encounter
--- OUTSIDE RECORDS SUMMARY | 2022-07-07 10:50 | XMS_ITS | Encounter Summary ---
:1950 Author Organization [place] Address [facility] [place] [address] Care Team Providers Name Role Phone Ingrid Santana RN Unavailable Unavailable Momo Forbes Primary Care Provider Reason for Visit Reason Onset Date Comments Anticoagulation 04/01/2014 Encounter Details Date Type Department Care Team Description 04/01/2014 Telephone [facility] Joseph Levine , Anticoagulation Anticoagulation Clin ic [facility] 420 [place], [place] [phone] [facility] [phone] [place] [address] [place] [id number] (Wo rk) Social History Tobacco Use Types Packs/Day Years Used Date Smoking Tobacco: Former Cigars Quit : 08/22/2006 Smokeless Tobacco: Never Alcohol Use Standard Drinks/Week Comments Yes 0 (1 standard drink = 0.6 oz pure alcoho l) occasional drink. Sex Assigned at Date Recorded Not on file documented as of this encounter Miscellaneous Notes Telephone Encounter - Joseph Levine, [facility] - 04/01/2014 5:22 PM CDT INR today was 1.64 I spoke with Diego his proceedure went well. I recommended warfarin 7.5mgs MWF 5mgs all other days He will have an INR on 04/09/14 at his appointment with Dr Rodriguez documented in this encounter Plan of Treatment Not on filedocumented as of this encounter Visit Diagnoses Not on filedocumented in this encounter Care Teams Range Ecologist Relationship Specialty Start Date End Date Momo Forbes PCP - General Family Practice 01/02/14 [place] [phone] Ingrid Santana, RN Registered Nurse Transplant 02/10/12 documented as of this encounter
--- OUTSIDE RECORDS SUMMARY | 2022-07-07 10:50 | XMS_ITS | Encounter Summary ---
:1950 Author Organization [place] Address [facility]0 [facility] [address] Care Team Providers Name Role Phone Ingrid Santana RN Unavailable Unavailable Momo Forbes Primary Care Provider Encounter Details Date Type Department Care Team Description 03/18/2014 Orders Only Nephrology Shiva Kahn RN -donor kidney 2nd Floor, Clinic 2A [facility] transplant recipient Tommy Ruizfelisa [address] [place] [phone] Social History Tobacco Use Types Packs/Day Years [...] transplant documented in this encounter Care Teams Pan Devulcanizer Relationship Specialty Start Date End Date Momo Forbes PCP - General Family Practice 01/02/[address] [address] Ingrid Santana RN Registered Nurse Transplant 02/10/12 documented as of this encounter
--- OUTSIDE RECORDS SUMMARY | 2022-07-07 10:51 | XMS_ITS | Encounter Summary ---
:1950 Author Organization [place] Address [address] [place] [address] Care Team Providers Name Role Phone Ingrid Santana RN Unavailable Unavailable Momo Forbes Primary Care Provider Encounter Details Date Type Department Care Team Description 03/15/2014 Hospital Encounter [facility] Susy Cole, Lymphocele Unit 2A [facility] [address] [place] [address] [phone] [place], [place] [address] (Wo rk) Social History Tobacco Use Types [...] Andrea Can Date of procedure Telephone numbers: [phone] Tuesday-Tuesday 8:00 am to 4:30 pm [phone] After 4:30 pm Tuesday-Tuesday, Weekends & Holidays. Ask for the Interventional Radiologist glass vial bending conveyor feeder. Someone is available 24 hours/day [facility] [...] CCRN March 15, 2014 9:20 AM Pager: [phone] [facility] - 03/15/2014 8:58 AM CDT Discussed order with Dr Merchant today. He would like drain placement if the fluid appears thin. If itappears to be a hematoma then aspiration only. D/w Farid resident and IR staff doing the case. Thanks [facility] GRAIN ELEVATOR SUPERINTENDENT ([phone]) Jeanette Lopez RN - 03/15/2014 8:14 AM CDT Prepped and consented, INR 1.1 FSBS is 219 documented in this encounter Procedure Notes Drea Glasgow MD - 03/15/2014 9:23 AM CDT Interventional Radiology Brief Post Procedure Note Pre Procedure Diagnosis: perinephric fluid collection Post Procedure Diagnosis: Same Procedure: Aspiration of RLQ fluid collection over the tranplant kidney Proceduralist: Drea Glasgow MD, Andrea Gibbons PA-C Superintendent Marine: None Time Out: Prior to the start [...] Dr. Yossi Cox Resident: Dr. Drea Glasgow Superintendent Marine: Andrea Gibbons PA-C. Medications: 1% lidocaine and [...] Dr. Yossi Cox Resident: Dr. Drea Glasgow Superintendent Marine: Andrea Gibbons PA-C. Medications: 1% lidocaine and [...] Component Value Ref Test Analysis Performed At [facility] Range Method Time Signature Specimen Aspirate [facility] Gram Stain Many PMNs seen [facility] No organisms seen MICROBIOLOGY Micro Report FINAL [facility] Status 03/15/2014 MICROBIOLOGY Specimen Anatomical Collection Method Collection Time Receive d Time (Source) Location / / Volume Laterality 03/15/2014 9:05 AM 4 9:59 CDT AM CDT Celina Cole MD LAB - MICRO GENERAL ORDERABL ES Performing Organization Address City/[facility]/ZIP Code Phon e Number [facility] [address] LABS [facility] MICROBIOLOGY (ABNORMAL) Fluid Culture (03/15/2014 9:05 AM CDT) Component Value Ref Test Analysis Performed At Patholo gist Range Method Time Signature Specimen Aspirate [facility] Description [facility] LABS Culture Micro Light growth Coagulase negat jo Staphylococcus Susceptibility testing not [facility] routinely done MICROBIOLOGY (A) Micro Report FINAL 03/18/2014 [facility] Status MICROBIOLOGY Specimen Anatomical Collection Method Collection Time Receive d Time (Source) Location / / Volume Laterality Fluid specimen SPECIMEN OBTAINED 03/15/2014 9:05 AM 9:59 (specimen) BY ASPIRATION / CDT AM CDT Unknown Celina Cole MD LAB - MICRO GENERAL ORDERABL ES Performing Organization Address City/[facility]/ZIP Code Phon e Number [address] LABS [facility] MICROBIOLOGY Triglyceride Fluid (03/15/2014 9:05 AM CDT) Patholo gist Method Time Signature Triglyceride Aspirate [facility] Fluid Source [facility] Triglyceride 94 mg/dL [facility] Fluid [facility] LABS Comment: No reference ranges [...] - BODY FLUIDS ORDERABLES Performing Organization Address City/[facility]/ZIP Code Phon e Number [address] [place] [address] [facility] LABS Cell count with differential fluid (03/15/2014 9:05 AM CDT) Component Value Ref Test Analysis Performed At [facility] Range Method Time Signature Body Fluid Aspirate [facility] Analysis Source [facility] Color Fluid Brown [facility] LABS Appearance Turbid [facility] Fluid [facility] LABS RBC Fluid << Do Not /uL [facility] Report >> [facility] LABS WBC Fluid 10051 /uL [facility] LABS % Neutrophils 97 % [facility] Fluid [facility] LABS % Lymphocytes 2 % [facility] Fluid [facility] LABS % Eosinophils 1 % [facility] Fluid [facility] LABS Specimen Anatomical Collection Method Collection Time Receive d Time (Source) Location / / Volume Laterality SPECIMEN OBTAINED 03/15/2014 9:05 AM 02/20 9:56 BY ASPIRATION / CDT AM CDT Unknown Celina Cole MD LAB - BODY FLUIDS ORDERABLES Performing Organization Address City/State/ZIP Code Phon e Number [facility] [address] LABS Lactate dehydrogenase fluid (03/15/2014 9:05 AM CDT) Component Value Ref Test Analysis Performed At [facility] Range Method Time Signature LD Fluid Source Aspirate [facility] LABS Lactate Canceled, Test credited U/L [...] e Number [facility] 500 [place], [place] [phone] [place] [address] LABS Creatinine fluid (03/15/2014 9:05 AM CDT) [facility] Method Time Signature Creatinine Aspirate [facility] Fluid Source [facility] LABS Creatinine 1.5 mg/dL [facility] LABS Comment: No reference ranges have [...] - BODY FLUIDS ORDERABLES Performing Organization Address City/[facility]/ZIP Code Phon e Number [facility] 500 [place] [address] [facility] LABS INR point of care (03/15/2014 [...] Address City/[facility]/ZIP Code Phon e Number [facility] [...] LAB - BEAKER POCT Performing Organization Address City/[facility]/ZIP Code Phon e Number [facility] [...] mcg, Intravenous, EVERY 5 MIN PRN, severe pain (7-10), If inadequate response may repeat 25 mcg [...] Jeanette Lopez RN) Routine, 3 g, Intravenous, PRE-OP/PRE-NY OCEDURE, Starting on Tue03/15/14 at 0734, For 1 dose, Give dose within 1 hour PRIOR to procedure., Indications: Perioperative Pharmacoprophylaxis, IR Pre-procedure Continuous Medication Order 03/13/2014 03/14/2014 03/15/2014 0.9 % sodium chloride IV solution (CANCELED) 08 (New Bag - Provider: Jeanette Lopez RN) [...] Intra-procedure documented in this encounter Care Teams Integration Assistant Relationship Specialty Start Date End Date Momo Forbes PCP - General Family Practice 01/02/[address] [address] Ingrid Santana, RN Registered Nurse Transplant 02/10/12 documented as of this encounter
--- OUTSIDE RECORDS SUMMARY | 2022-07-07 10:51 | XMS_ITS | Encounter Summary ---
:1950 Author Organization [place] Address [address] [place] [address]. [place] [address] Care Team Providers Name Role Phone Ingrid Santana RN Unavailable Unavailable Momo Forbes Primary Care Provider Encounter Details Date Type Department Care Team Description 02/18/2014 Orders Only Nephrology Shiva Kahn RN -donor kidney transplant recipie nt (Primary Dx); 2nd Floor, Clinic 2A [facility] Kidney replaced by transplant; Tommy Ruizensteen [address] [facility] S/P kidney transplant Building [address] [place] [phone] Social History Tobacco Use Types Packs/Day Years [...] transplant documented in this encounter Care Teams Cut Out Operator Relationship Specialty Start Date End Date Momo Forbes PCP - General Family Practice 01/02/14 [facility] [address] [place] [address] Ingrid Santana RN Registered Nurse Transplant 02/10/12 documented as of this encounter
--- OUTSIDE RECORDS SUMMARY | 2022-07-07 10:51 | XMS_ITS | Encounter Summary ---
:1950 Author Organization [place] Address [facility] [place] [address] Care Team Providers Name Role Phone Ingrid Santana RN Unavailable Unavailable Momo Forbes Primary Care Provider Reason for Visit Reason Onset Date Comments Pt. Information/instruction 03/14/2014 Encounter Details Date Type Department Care Team Description 03/14/2014 Telephone [facility] Beto Womack Pt . Interventional Radio martha Dangelo RN Information/instructio 500 [place] [phone] Social History Tobacco Use Types Packs/Day Years [...] filedocumented in this encounter Care Teams Production Solderer Relationship Specialty Start Date End Date Momo Forbes PCP - General Family Practice 01/02/14 [facility] 1999 [place] [address] Ingrid Santana RN Registered Nurse Transplant 02/10/12 documented as of this encounter
--- OUTSIDE RECORDS SUMMARY | 2022-07-07 10:51 | XMS_ITS | Encounter Summary ---
:1950 Author Organization [place] Address [address] [place] [address] Care Team Providers Name Role Phone Ingrid Santana RN Unavailable Unavailable Momo Forbes Primary Care Provider Reason for Visit Reason Onset Date Comments Previsit 02/20/2014 Encounter Details Date Type Department Care Team Description 02/20/2014 Telephone Transplant Surgery C nanda Merchant, Migel Evans MD Previsit 2nd Floor, Clinic 2A [address] [address] [facility] [place] [phone] Social History Tobacco Use Types Packs/Day Years [...] Family Practice 01/02/14 [facility] [address] [place] [phone] Ingrid Santana, RN Registered Nurse Transplant 02/10/12 documented as of this encounter
--- OUTSIDE RECORDS SUMMARY | 2022-07-07 10:51 | XMS_ITS | Encounter Summary ---
:1950 Author Organization [place] Address [address] [place] [address]. [place] [address] Care Team Providers Name Role Phone Ingrid [...] 12-lead, tracing only (02/18/2014 9:53 AM CDT) [facility] gist Method Time Signature Interpretation ECG [...] on filedocumented in this encounter Care Teams Twister Doffer Relationship Specialty Start Date End Date Momo Forbes PCP - General Family Practice 01/02/14 [facility] [address] [place] [address] Ingrid Santana, RN Registered Nurse Transplant 02/10/12 documented as of this encounter
--- OUTSIDE RECORDS SUMMARY | 2022-07-07 10:51 | XMS_ITS | Encounter Summary ---
:1950 Author Organization [place] Address [facility]0 [facility] [place] [address] Care Team Providers Name Role Phone Ingrid Santana RN Unavailable Unavailable Momo Forbes Primary Care Provider Reason for Visit Reason Onset Date Comments Refill Request 02/15/2014 Encounter Details Date Type Department Care Team Description 02/15/2014 Refill Nephrology Shiva Kahn RN Refill Request 2nd Floor, Clinic 2A [facility] Snaders [place]en [address] [facility] [place], [place] [phone] [place] [address] [place] [phone] Social History Tobacco Use Types Packs/Day [...] on filedocumented in this encounter Care Teams Bevel Operator Relationship Specialty Start Date End Date Momo Forbes PCP - General Family Practice 01/02/14 [facility] [address] [place] [address] Ingrid Santana RN Registered Nurse Transplant 02/10/12 documented as of this encounter
--- OUTSIDE RECORDS SUMMARY | 2022-07-07 10:51 | XMS_ITS | Encounter Summary ---
:1950 Author Organization [place] Address [facility]0 [facility] [place] [address] Care Team Providers Name Role Phone Ingrid Santana RN Unavailable Unavailable Momo Forbes Primary Care Provider Encounter Details Date Type Department Care Team Description 03/01/2014 Orders Only Nephrology Shiva Kahn RN -donor kidney 2nd Floor, Clinic 2A [facility] transplant recipient Tmomy Ruizfelisa [address] [place] [phone] Social History Tobacco Use Types Packs/Day Years [...] transplant documented in this encounter Care Teams Archery Equipment Hay Sorter Relationship Specialty Start Date End Date Momo Forbes PCP - General Family Practice 01/02/[address] [address] Ingrid Santana RN Registered Nurse Transplant 02/10/12 documented as of this encounter
--- OUTSIDE RECORDS SUMMARY | 2022-07-07 10:51 | XMS_ITS | Encounter Summary ---
:1950 Author Organization [place] Address [address] [place] [address] Care Team Providers Name Role Phone Ingrid Santana RN Unavailable Unavailable Momo Forbes Primary Care Provider Reason for Visit Auth/Cert - Closed Specialty Diagnoses / Procedures Referred By Contact Refer red To Contact Surgery Diagnoses Status Post Kidney Transplant Uu Periop Procedures COMBINED CYSTOSCOPY, REMOVE STENT(S) 500 [place] [address] Phone: Fax: Referral ID Status Reason Start Date Expiration Date Visits Requ ested Visits Authorized [id number] Closed 1 1 Encounter Details Date Type Department Care Team Description 03/11/2014 Hospital Encounter [facility] Migel Merchant, Same Day Surgery East [address] 500 [facility] [address] [place] [address] [place] [address] (Wo rk) Social History Tobacco Use Types [...] 8:46 CDT AM CDT Migel Merchant MD [facility] POCT Performing Organization Address City/State/ZIP Code Phon e Number FV POINT OF CARE TEST, GLUCOSE POINT OF CARE TEST, GLUCOSE documented in this encounter Visit Diagnoses Not on filedocumented in this encounter Active and Recently Administered Medications Care Teams Contractor General Engineering Relationship Specialty Start Date End Date Momo Forbes PCP - General Family Practice 01/02/14 [facility] [address] [place] [address] Ingrid Santana, RN Registered Nurse Transplant 02/10/12 documented as of this encounter
--- OUTSIDE RECORDS SUMMARY | 2022-07-07 10:51 | XMS_ITS | Encounter Summary ---
:1950 Author Organization [place] Address [address] [place] [address]. [place] [address] Care Team Providers Name Role Phone Ingrid Santana RN Unavailable Unavailable Momo Forbes Primary Care Provider Encounter Details Date Type Department Care Team Description 02/18/2014 Orders Only Nephrology Shiva Kahn, -donor kidney transp lant recipient (Primary Dx); 2nd Floor, Clinic 2A RN High risk medications (not anticoagulant s) long-term use; Tommy Wilburn [facility] CATY HIGGINS extermination inspector (current) use of anticoagulant s [place] [address] [place] [phone] Social History Tobacco Use Types Packs/Day Years [...] for long-term (current) use of other medications extermination inspector (current) use of anticoagulant s Long-term (current) use of anticoagulant s documented in this encounter Care Teams Technical Services Coordinator Relationship Specialty Start Date End Date Momo Forbes PCP - General Family Practice 01/02/14 [facility] 2000 [place], [place] [phone] Ingrid Santana, RN Registered Nurse Transplant 02/10/12 documented as of this encounter
--- OUTSIDE RECORDS SUMMARY | 2022-07-07 10:51 | XMS_ITS | Encounter Summary ---
:1950 Author Organization [place] Address [address] [facility] [place] [address] Care Team Providers Name Role Phone Ingrid Santana RN Unavailable Unavailable Momo Forbes Primary Care Provider Reason for Visit Reason Comments Surgical Followup kidney tx 02/02/14 Encounter Details Date Type Department Care Team Description 02/25/2014 Office Visit Transplant Surgery Finger, Migel Hypophosp hatemia (Primary Dx); Clinic MD Nathan Kidney replaced by transplant; 2nd Floor, Clinic [address]A [address] [place] [address] -donor kidney transp lant recipient; [address]SE [facility] 1 95 High risk medications (not anticoagulant s) long-term use; Building alf (current) use of anticoagulant s; [address] [place], [place] [address] Orthostatic hypotension [facility] 88 [place], [place] (Work) [phone] Social History Tobacco Use [...] Somewhat lethargic. Otherwise well Abd mod obesity. Gasquet in place. Drain with small amt of [...] will give mag and phos prescription. 5. [place] - Out today 6 Drain -- out [...] (not anticoagulants) section . 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 POCT Performing Organization Address City/State/ZIP Code Phon e Number FV POINT OF CARE TEST, GLUCOSE POINT OF CARE TEST, GLUCOSE BK virus PCR quantitative (02/25/2014 10:54 AM CDT) Component Value Ref Test Analysis Performed At Patholo gist Range Method Time [facility] BK Virus DNA Plasma, EDTA [facility] Quant Source anticoagulant [facility] BK Virus DNA <390 [facility] Quant Unit: cpy/mL [facility] Copy/mL [facility] BK Virus DNA <2.6 [facility] Quant Log Unit: log [place] (Note) [facility] INTERPRETIVE INFORMATION: BK Virus, Quantitation by [...] methodologies. Test developed and characteristics determined by [employer]. See Compliance Statement A: [employer] SMS/ BK Virus DNA Not Detected [facility] Quant Interp Reference range: Not Detected [place] (Note) [facility] Performed by [employer], [address] [place] [id number] [email or web address], Kj Mcmillan MD, Lab. Director Specimen Anatomical Collection Method Collection Time Receive d Time (Source) Location / / Volume Laterality Blood specimen 02/25/2014 10:54 4 (specimen) AM CDT 10:55 AM CDT Deysi Alicea MD LAB - MICRO GENERAL ORDERABL ES Performing Organization Address City/State/ZIP Code Phon e Number [phone] [place] [address] LABS Immunology recipient: SOT PRA (Post Tx for Donor Spec Antibody) (02/25/2014 10:54 AM CDT) [facility] Method Time Signature Immunology PRA [facility] Test Name [facility] Immunology Specimen [facility] Result received - [facility] LABS report to follow upon completion. Specimen Anatomical Collection Method Collection Time Receive d Time (Source) Location / / Volume Laterality Blood specimen 02/25/2014 10:54 4 (specimen) AM CDT 10:55 AM CDT Deysi Alicea MD LAB - IMMUNOLOGY ORDERABLES Performing Organization Address City/State/ZIP Code Phon e Number [facility] [address] LABS (ABNORMAL) INR (02/25/2014 10:53 AM CDT) athologist Signature INR 2.39 (H) 0.86 - 1.14 [facility] Specimen Anatomical Collection Method Collection Time Receive d Time (Source) Location / / Volume Laterality Blood specimen 02/25/2014 10:53 4 (specimen) AM CDT 10:54 AM CDT Migel Merchant MD LAB - BLOOD ORDERABLES Performing Organization Address City/[facility]/ZIP Code Phon e Number [facility] [address] LABS (ABNORMAL) Magnesium (02/25/2014 10:53 AM CDT) athologist Signature Magnesium 1.5 (L) 1.6 - 2.3 [facility] mg/dL [facility] Specimen Anatomical Collection Method Collection Time Receive d Time (Source) Location / / Volume Laterality Blood specimen 02/25/2014 10:53 4 (specimen) AM CDT 10:54 AM CDT Deysi Alicea MD LAB - BLOOD ORDERABLES Performing Organization Address City/[facility]/ZIP Code Phon e Number [facility] [address] LABS (ABNORMAL) Phosphorus (02/25/2014 10:53 AM CDT) athologist Signature Phosphorus 1.3 (L) 2.5 - 4.5 [facility] mg/dL [facility] Specimen Anatomical Collection Method Collection Time Receive d Time (Source) Location / / Volume Laterality Blood specimen 02/25/2014 10:53 4 (specimen) AM CDT 10:54 AM CDT Deysi Alicea MD LAB - BLOOD ORDERABLES Performing Organization Address City/State/ZIP Code Phon e Number [address] LABS Mycophenolic acid (02/25/2014 10:53 AM [...] e Number [facility] [address] [facility] Tacrolimus level (02/25/2014 10:53 AM CDT) [facility] gist Method Time Signature Tacrolimus 02/24/14 ?1999 [facility] Last Dose CORRECTED ON 02/25 AT 1055: PREVIOUSLY REPORTED 1999 [facility] Tacrolimus 9.1 5.0 - [facility] Level [...] e Number [facility] 500 [place] [address] [facility] LABS (ABNORMAL) Basic metabolic panel (02/25/2014 10:53 AM CDT) [facility] gist Method Time Signature Sodium 137 133 - 144 [facility] mmol/L [facility] Potassium 4.6 3.4 - 5.3 [facility] mmol/L [facility] Chloride 108 94 - 109 [facility] mmol/L [facility] Carbon Dioxide 19 (L) 20 - 32 [facility] mmol/L [facility] Anion Gap 10 6 - 17 [facility] mmol/L [facility] Glucose 217 (H) 60 - 99 [facility] mg/dL [facility] Urea Nitrogen 13 7 - 30 [facility] mg/dL [facility] Creatinine 1.48 (H) 0.66 - [facility] 1.25 mg/dL [facility] GFR Estimate 48 (L) >60 [facility] mL/min/1.7 [place] m2 [facility]AMPUS [facility] GFR Estimate If 58 (L) >60 [facility] Black mL/min/1.7 [place] m2 [facility]AMP[facility] Calcium 9.6 8.5 - 10.4 [facility] mg/dL [facility] Specimen Anatomical Collection Method Collection Time Receive d Time (Source) Location / / Volume Laterality Blood specimen 02/25/2014 10:53 4 (specimen) AM CDT 10:54 AM CDT Deysi Alicea MD LAB - BLOOD ORDERABLES Performing Organization Address City/State/ZIP Code Phon e Number [address] [address] [place] [facility] (ABNORMAL) CBC with platelets differential (02/25/2014 10:53 AM CDT) [facility] gist Method Time Signature WBC 4.9 4.0 - [facility] 11.0 [facility] 10e9/L CAMPUS [facility] RBC Count 2.67 (L) 4.4 - 5.9 [facility] 10e12/L [facility] Hemoglobin 7.8 (L) 13.3 - [facility] 17.7 g/dL [facility] Hematocrit 23.5 (L) 40.0 - [facility] 53.0 % [facility] MCV 88 78 - 100 [facility] fl [facility] MCH 29.2 26.5 - [facility] 33.0 pg [facility] MCHC 33.2 31.5 - [facility] 36.5 g/dL [facility] RDW 14.3 10.0 - [facility] 15.0 % [facility] Platelet Count 179 150 - 450 [facility] 10e9/L [facility] Diff Method Automated [facility] Method [facility] % Neutrophils 89.4 % [facility] % Lymphocytes 3.9 % [facility] % Monocytes 5.1 % [facility] % Eosinophils 1.2 % [facility] % Basophils 0.2 % [facility] % Immature 0.2 % [facility] Granulocytes [facility] Absolute 4.4 1.6 - 8.3 [facility] Neutrophil 10e9/L [facility] Absolute 0.2 (L) 0.8 - 5.3 [facility] Lymphocytes 10e9/L [facility] Absolute 0.3 0.0 - 1.3 [facility] Monocytes 10e9/L [facility] Absolute 0.1 0.0 - 0.7 [facility] Eosinophils 10e9/L DEL [...] e Number [facility] [address] [place] [address] [facility] documented in this encounter [...] hypotension documented in this encounter Care Teams Upkeep Worker Relationship Specialty Start Date End Date Momo Forbes PCP - General Family Practice 01/02/[address] [address] Ingrid Santana, RN Registered Nurse Transplant 02/10/12 documented as of this encounter
--- OUTSIDE RECORDS SUMMARY | 2022-07-07 10:51 | XMS_ITS | Encounter Summary ---
:1950 Author Organization [place] Address [address] [place] [address] Care Team Providers Name Role Phone Ingrid Santana RN Unavailable Unavailable Momo Forbes Primary Care Provider Reason for Visit Reason Onset Date Comments Previsit 02/15/[address] Merchant 02/18 Encounter Details Date Type Department Care Team Description 02/15/2014 Telephone Transplant Surgery Radha Acosta LPN Prev isit (Appt with Dr Anthony Merchant 02/18) 2nd Floor, Clinic [address] [place] [address] Social History Tobacco Use Types [...] on filedocumented in this encounter Care Teams Cartoon Animator Relationship Specialty Start Date End Date Momo Forbes PCP - General Family Practice 01/02/14 [place] [phone] Ingrid Santana, RN Registered Nurse Transplant 02/10/12 documented as of this encounter
--- OUTSIDE RECORDS SUMMARY | 2022-07-07 10:51 | XMS_ITS | Encounter Summary ---
:1950 Author Organization [place] Address [facility] [place] [address] Care Team Providers Name Role Phone Ingrid Santana RN Unavailable Unavailable Momo Forbes Primary Care Provider Reason for Visit Reason Comments Eval/Assessment LBA Encounter Details Date Type Department Care Team Description 02/14/2014 Office Visit Specialty Infusion Edward, Naim S, Kidney r eplaced by transplant (Primary Dx); and Procedure Center Immunosuppression (H); Arpita [facility] Hyperka lemia; [facility] Hypophosphatemia; 2nd Floor [address] Atrial fibrillation (H); [address] [place], [place] An[place]; [place] [address] HTN (hypertension) [place], [place] [phone] [address] (Work) [phone] Social History Tobacco Use Types Packs/Day Years [...] Years of Education: 14 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
--- OUTSIDE RECORDS SUMMARY | 2022-07-07 10:51 | XMS_ITS | Encounter Summary ---
:1950 Author Organization [place] Address [address] [place] [address]. [place] [address] Care Team Providers Name Role Phone Ingrid Santana RN Unavailable Unavailable Momo Forbes Primary Care Provider Encounter Details Date Type Department Care Team Description 03/11/2014 Orders Only Transplant Surgery Celina Cole (Primary Clinic A, Dx) 2nd Floor, Clinic 2A [address] [place] [address] [address] [facility] [address] Social History Tobacco Use Types [...] channels documented in this encounter Care Teams Police Aide Relationship Specialty Start Date End Date Momo Forbes PCP - General Family Practice 01/02/14 [facility] [address] [place] [address] Ingrid Santana RN Registered Nurse Transplant 02/10/12 documented as of this encounter
--- OUTSIDE RECORDS SUMMARY | 2022-07-07 10:51 | XMS_ITS | Encounter Summary ---
:1950 Author Organization [place] Address [address] [place] [address] Care Team Providers Name Role Phone Ingrid Santana RN Unavailable Unavailable Momo Forbes Primary Care Provider Reason for Visit Reason Onset Date Comments Pre Visit Planning - Done 03/08/2014 Appointment on 03/11/2014 Encounter Details Date Type Department Care Team Description 03/08/2014 Telephone Nephrology Alexandria Caldera Pre Visit Planning - 2nd Floor, Clinic 2A JATIN Done (Appointment on Tommy Wilburn 03/11/20 14) [address] [address] Social History Tobacco Use [...] bring list of medications. Toldpatient to call [phone] if any questions or needs to reschedule. Alexandria Caldera CMA documented in this encounter Plan of Treatment Not on filedocumented as of this encounter Visit Diagnoses Not on filedocumented in this encounter Care Teams Pet Stylist Relationship Specialty Start Date End Date Momo Forbes PCP - General Family Practice 01/02/14 [facility] [address] [place] [address] Ingrid Santana, RN Registered Nurse Transplant 02/10/12 documented as of this encounter
--- OUTSIDE RECORDS SUMMARY | 2022-07-07 10:51 | XMS_ITS | Encounter Summary ---
:1950 Author Organization [place] Address [facility] [place] [address] Care Team Providers Name Role Phone Ingrid Santana RN Unavailable Unavailable Momo Forbes Primary Care Provider Encounter Details Date Type Department Care Team Description 02/15/2014 Orders Only Nephrology Shiva Kahn RN Kidney replaced by transplant; 2nd Floor, Clinic 2A [facility] S/P kidney transplant Tommy [address] [phone] [phone] Social History Tobacco Use Types Packs/Day Years [...] transplant documented in this encounter Care Teams Professor Of Communication Relationship Specialty Start Date End Date Momo Forbes PCP - General Family Practice 01/02/14 [facility] [address] [place] [address] Ingrid Santana RN Registered Nurse Transplant 02/10/12 documented as of this encounter
--- OUTSIDE RECORDS SUMMARY | 2022-07-07 10:51 | XMS_ITS | Encounter Summary ---
:1950 Author Organization [place] Address [facility] [place] [address] Care Team Providers Name Role Phone Ingrid Santana RN Unavailable Unavailable Momo Forbes Primary Care Provider Encounter Details Date Type Department Care Team Description 02/18/2014 Orders Only The Transplant Deysi Burns, Kidney replaced by transplan t; 2nd Floor, Clinic 2A S/P kidney transplant [facility] 516 [facility] [address] [place] [address] [address] [place], [place] [address] [place] [address] (Wo rk) [address] [phone] Social History Tobacco Use Types Packs/Day Years [...] Signature Magnesium 1.5 (L) 1.6 - 2.3 [facility] mg/dL [place] [facility] Specimen Anatomical Collection Method Collection Time Receive d Time (Source) Location / / Volume Laterality Blood specimen 02/18/2014 8:56 AM 014 8:57 (specimen) CDT AM CDT Kaitlynn Leon MD LAB - BLOOD ORDERABLES Performing Organization Address City/[facility]/ZIP Code Phon e Number [facility] [address] LABS (ABNORMAL) Phosphorus (02/18/2014 8:56 AM CDT) athologist Signature Phosphorus 1.9 (L) 2.5 - 4.5 [facility] mg/dL [place] [facility] Specimen Anatomical Collection Method Collection Time Receive d Time (Source) Location / / Volume Laterality Blood specimen 02/18/2014 8:56 AM 014 8:57 (specimen) CDT AM CDT Kaitlynn Leon MD LAB - BLOOD ORDERABLES Performing Organization Address City/State/ZIP Code Phon e Number [facility] 500 [place], [place] [phone] [place] [address] LABS Tacrolimus level (02/18/2014 8:56 AM CDT) [facility] gist Method Time Signature Tacrolimus Last 02/12/14 [facility] Dose 1930 [facility] Tacrolimus 14.1 5.0 - [facility] Level 15.0 ug/L [facility] [...] Phon e Number [facility] 500 [place], [place] [phone] [place] [address] LABS (ABNORMAL) CBC with platelets differential (02/18/2014 8:56 AM CDT) [facility] Method Time Signature WBC 6.3 4.0 - [facility] 11.0 [facility] 10e9/L [place] [facility] RBC Count 2.59 (L) 4.4 - 5.9 [facility] 10e12/L [facility] Hemoglobin 7.8 (L) 13.3 - [facility] 17.7 g/dL [facility] Hematocrit 23.7 (L) 40.0 - [facility] 53.0 % [facility] MCV 92 78 - 100 [facility] fl [facility] LAB[facility] MCH 30.1 26.5 - [facility] 33.0 pg [facility]S MCHC 32.9 31.5 - [facility] 36.5 g/dL [facility] RDW 14.7 10.0 - [facility] 15.0 % [facility] Platelet Count 140 (L) 150 - 450 [facility] 10e9/L [facility]S Diff Method Automated [facility] Method [facility] LABS % Neutrophils 84.7 % [facility] % Lymphocytes 3.8 % [facility] % Monocytes 6.0 % [facility] % Eosinophils 4.8 % [facility] % Basophils 0.5 % [facility] % Immature 0.2 % [facility] Granulocytes [facility] Absolute 5.3 1.6 - 8.3 [facility] Neutrophil 10e9/L [facility] LABS Absolute 0.2 (L) 0.8 - 5.3 [facility] Lymphocytes 10e9/L [facility]S Absolute 0.4 0.0 - 1.3 [facility] Monocytes 10e9/L [facility] Absolute 0.3 0.0 - 0.7 [facility] Eosinophils 10e9/L [facility] Absolute 0.0 0.0 - 0.2 [facility] Basophils 10e9/L [facility] LABS Abs Immature 0.0 0 - 0.4 [facility] Granulocytes 10e9/L [facility] LABS Specimen Anatomical Collection Method Collection Time Receive d Time (Source) Location / / Volume Laterality Blood specimen 02/18/2014 8:56 AM 014 8:57 (specimen) CDT AM CDT Kaitlynn Leon MD LAB - BLOOD ORDERABLES Performing Organization Address City/State/ZIP Code Phon e Number [phone] [place] [address] LABS (ABNORMAL) Basic metabolic panel (02/18/2014 8:56 AM CDT) [facility] gist Method Time Signature Sodium 141 133 - 144 [facility] mmol/L [facility] LABS Potassium 5.2 3.4 - 5.3 [facility] mmol/L [facility] LABS Chloride 112 (H) 94 - 109 [facility] mmol/L [facility] LABS Carbon Dioxide 18 (L) 20 - 32 [facility] mmol/L [facility] LABS Anion Gap 11 6 - 17 [facility] mmol/L [facility] LABS Glucose 185 (H) 60 - 99 [facility] mg/dL [facility] LABS Urea Nitrogen 24 7 - 30 [facility] mg/dL [facility] LABS Creatinine 1.81 (H) 0.66 - [facility] 1.25 mg/dL [facility] LABS GFR Estimate 38 (L) >60 [facility] mL/min/1.7 [facility] m2 CAMPUS LABS GFR Estimate If 46 (L) >60 [facility] Black mL/min/1.7 [place] [address] CAMPUS LABS Calcium 9.4 8.5 - 10.4 [facility] mg/dL [facility]S Specimen Anatomical Collection Method Collection Time Receive d Time (Source) Location / / Volume Laterality Blood specimen 02/18/2014 8:56 AM 014 8:57 (specimen) CDT AM CDT Kaitlynn Leon MD LAB - BLOOD ORDERABLES Performing Organization Address City/[facility]/ZIP Code Phon e Number [address] [address] [facility] LABS (ABNORMAL) INR (02/18/2014 8:56 AM CDT) P athologist Signature INR 2.13 (H) 0.86 - 1.14 [facility] LABS Specimen Anatomical Collection Method Collection Time Receive d Time (Source) Location / / Volume Laterality Blood specimen 02/18/2014 8:56 AM 014 8:57 (specimen) CDT AM CDT Kaitlynn Leon MD LAB - BLOOD ORDERABLES Performing Organization Address City/[facility] Code Phon e Number [facility] [address] [place] [address] [facility] LABS documented in this encounter Visit Diagnoses Diagnosis Kidney replaced by transplant S/P kidney transplant Kidney replaced by transplant documented in this encounter Care Teams Densitometrist Relationship Specialty Start Date End Date Momo Forbes PCP - General Family Practice 01/02/14 [facility] [address] [place] [address] Ingrid Santana, RN Registered Nurse Transplant 02/10/12 documented as of this encounter
--- OUTSIDE RECORDS SUMMARY | 2022-07-07 10:51 | XMS_ITS | Encounter Summary ---
:1950 Author Organization [place] Address [address] [place] [address] Care Team Providers Name Role Phone Ingrid Santana RN Unavailable Unavailable Momo Forbes Primary Care Provider Reason for Visit Reason Onset Date Comments Transplant 03/08/2014 Elevated tacrolimus level Encounter Details Date Type Department Care Team Description 03/08/2014 Telephone Nephrology Jeff Giordano (Elevated 2nd Floor, Clinic 2A Almita Palomino RN tacrolimus level) Tommy Wilburn [address] [phone] Social History Tobacco Use Types Packs/Day Years [...] repeat the level. Leonor Giordano R.N. - [phone] documented in this encounter Plan of Treatment Not on filedocumented as of this encounter Visit Diagnoses Not on filedocumented in this encounter Care Teams Duplicating Machine Operator Relationship Specialty Start Date End Date Momo Forbes PCP - General Family Practice 01/02/[address] [address] Ingrid Santana, RN Registered Nurse Transplant 02/10/12 documented as of this encounter
--- OUTSIDE RECORDS SUMMARY | 2022-07-07 10:51 | XMS_ITS | Encounter Summary ---
:1950 Author Organization [employer] Address [address] [place] [address]. [place] [address] Care Team Providers Name Role Phone Ingrid Santana RN Unavailable Unavailable Momo Forbes Primary Care Provider Encounter Details Date Type Department Care Team Description 03/13/2014 Orders Only Nephrology Shiva Kahn, Atrial fibrillation (H); 2nd Floor, Clinic 2A RN -donor kidney transplant recipie nt Tommy Wilburn [address] [address] [phone] Social History Tobacco Use Types Packs/Day Years [...] documented in this encounter Care Teams Display Director Relationship Specialty Start Date End Date Momo Forbes PCP - General Family Practice 01/02/14 [facility] [address] [place] [address] Ingrid Santana RN Registered Nurse Transplant 02/10/12 documented as of this encounter
--- OUTSIDE RECORDS SUMMARY | 2022-07-07 10:51 | XMS_ITS | Encounter Summary ---
:1950 Author Organization [place] Address [facility] [place] [address] Care Team Providers Name Role Phone Ingrid Santana RN Unavailable Unavailable Momo Forbes Primary Care Provider Encounter Details Date Type Department Care Team Description 03/14/2014 Orders Only Nephrology Shiva Kahn RN -donor kidney 2nd Floor, Clinic 2A [facility] transplant recipient Tommy Ruizfelisa [address] [place] [id number] [phone] Social History Tobacco Use Types Packs/Day Years [...] transplant documented in this encounter Care Teams Trainmaster Relationship Specialty Start Date End Date Momo Forbes PCP - General Family Practice 01/02/[address] [address] Ingrid Santana RN Registered Nurse Transplant 02/10/12 documented as of this encounter
--- OUTSIDE RECORDS SUMMARY | 2022-07-07 10:51 | XMS_ITS | Encounter Summary ---
:1950 Author Organization [employer] Address [address] [place] [address] Care Team Providers Name Role Phone Ingrid Santana RN Unavailable Unavailable Momo Forbes Primary Care Provider Encounter Details Date Type Department Care Team Description 02/19/2014 Orders Only [facility], Joseph Conor [facility] jm [place] [address] [phone] [place] [address] [place] [address] (Wo rk) Social History Tobacco [...] Results Tacrolimus level (03/19/2014 9:05 AM CDT) [facility] Method Time Signature Tacrolimus Last 03/18/14 [facility] Dose 2100 [facility] Tacrolimus 13.1 5.0 - [facility] Level 15.0 ug/L [facility] Comment: Tacrolimus Reference Range Kidney Transplant [...] Number [facility] [address] [place] [address] [facility] Tacrolimus level (03/12/2014 9:40 AM CDT) [facility] gist Method Time Signature Tacrolimus Not Provided [facility] Last Dose [facility] Tacrolimus 7.3 5.0 - [facility] Level 15.0 ug/L [facility] Comment: Tacrolimus Reference Range Kidney Transplant [...] Number [facility] [address] [place] [address] [facility] Tacrolimus level (03/08/2014 10:15 AM CDT) [facility] gist Method Time Signature Tacrolimus Last 03/07/14 [facility] Dose 2000 [facility] Tacrolimus 6.1 5.0 - [facility] Level 15.0 ug/L [facility] Comment: Tacrolimus Reference Range Kidney Transplant [...] Number [facility] [address] [place], [place] [id number] [place] [address] [facility] Tacrolimus level (03/06/2014 5:13 PM CDT) [facility] gist Method Time Signature Tacrolimus Last 1400 [facility] Dose 03/05/14 [facility] Tacrolimus 11.3 5.0 - [facility] Level 15.0 ug/L [facility] Comment: Tacrolimus Reference Range Kidney Transplant [...] Number [facility] [address] [place] [address] [facility] Tacrolimus level (03/01/2014 8:10 AM CDT) [facility] gist Method Time Signature Tacrolimus Last 02/28/14 [facility] Dose 1930 [facility] Tacrolimus 10.6 5.0 - [facility] Level 15.0 ug/L [facility] Comment: Tacrolimus Reference Range Kidney Transplant [...] Number [facility] [address] [place], [place] [id number] [place] [address] [facility] Tacrolimus level (02/27/2014 8:15 AM CDT) [facility] gist Method Time Signature Tacrolimus Last 02/26/14 [facility] Dose 2000 [facility] Tacrolimus 11.4 5.0 - [facility] Level 15.0 ug/L [facility] Comment: Tacrolimus Reference Range Kidney Transplant [...] Number [facility] [address] [place], [place] [id number] [place] [address] LABS HLA Lukasz Class II Single Antigen (02/25/2014 10:43 AM CDT) Component Value Ref Test Analysis Performed At [facility] Range Method Time Signature SA2 Test [...] Phon e Number [facility] Immunology/Histocompatabil [place], [place] [address] [facility] 500 [facility] [address] Building, Room 3-580 HISTOTRAC HLA Lukasz Class I Single Antigen (02/25/2014 10:43 AM CDT) Component Value Ref Test Analysis Performed At [facility] AqueSys Range Method Time Signature SA1 Test SA [...] LAB - IMMUNOLOGY ORDERABLES Performing Organization Address City/[facility]/ZIP Code Phon e Number [facility] Immunology[place], [place] [address] [facility] 500 [facility], Room 3-580 HISTOTRAC PRA Interfering Substance SCR (02/25/2014 10:43 AM CDT) Component Value Ref Test Analysis Performed At [facility] C$ cMoney Method Time Signature Interfering Luminex HISTOTRAC Substance [...] LAB - IMMUNOLOGY ORDERABLES Performing Organization Address City/[facility]/ZIP Code Phon e Number [facility] Immunology/[place], [place] [address] [facility] 500 [facility] [address] [facility], Room 3-580 HISTOTRAC Tacrolimus level (02/21/2014 8:45 AM CDT) [facility] [employer] Method Time Signature Tacrolimus Last 02/20/14 [facility] Dose 2000 [facility] Tacrolimus 7.9 5.0 - [facility] Level 15.0 ug/L [facility] Comment: Tacrolimus Reference Range Kidney Transplant [...] Number [facility] [address] [place] [address] [facility] documented in this encounter Visit Diagnoses Not on filedocumented in this encounter Care Teams Employment And Claims Aide Relationship Specialty Start Date End Date Momo Forbes PCP - General Family Practice 01/02/14 [place] [id number] Ingrid Santana, RN Registered Nurse Transplant 02/10/12 documented as of this encounter
--- OUTSIDE RECORDS SUMMARY | 2022-07-07 10:51 | XMS_ITS | Encounter Summary ---
:1950 Author Organization [place] Address [facility] [place] [address] Care Team Providers Name Role Phone Ingrid Santana RN Unavailable Unavailable Momo Raines Primary Care Provider Reason for Visit Reason Comments Consult consult for afib Encounter Details Date Type Department Care Team Description 02/18/2014 [facility] Joseph Hernandez (H) (Primary Dx) Heart MD Sanders [facility] Building [place] 4th Floor, Clinic 4B [address] [phone] [place], [place] (Work) [address] [phone] Social History Tobacco Use Types Packs/Day Years [...] Years of Education: 14 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
--- OUTSIDE RECORDS SUMMARY | 2022-07-07 10:51 | XMS_ITS | Encounter Summary ---
:1950 Author Organization [place] Address [address] [address] Care Team Providers Name Role Phone Ingrid Santana RN Unavailable Unavailable Momo Forbes Primary Care Provider Reason for Visit Reason Onset Date Comments Refill Request 03/04/2014Aug Encounter Details Date Type Department Care Team Description 03/04/2014 Refill The Transplant Kaitlynn Moreno MD Refill Request 2nd Floor, Clinic 2A [facility] ([facility]) [phone] (Wo rk) [address] [phone] Social History Tobacco Use Types Packs/Day Years [...] Fill Date: 02/08/14 Quantity: 60 [facility] [phone] documented in this encounter Plan of Treatment Not on filedocumented as of this encounter Visit Diagnoses Diagnosis Atrial fibrillation (H) Atrial fibrillation documented in this encounter Care Teams Remelt Worker Relationship Specialty Start Date End Date Momo Forbes PCP - General Family Practice 01/02/14 [facility] [address] [place] [phone] Ingrid Santana, RN Registered Nurse Transplant 02/10/12 documented as of this encounter
--- OUTSIDE RECORDS SUMMARY | 2022-07-07 10:51 | XMS_ITS | Encounter Summary ---
:1950 Author Organization [place] Address [address] [place] [address] Care Team Providers Name Role Phone Ingrid aSntana RN Unavailable Unavailable Momo Forbes Primary Care Provider Encounter Details Date Type Department Care Team Description 03/11/2014 Anesthesia Event [facility] Aly Esquivel MD PeriOp Services 420 [facility] 500 [facility] [address] [place] [address] [place] [address] [phone] (Wo rk) Anesthesia Record Procedure Summary Procedure [...] benefits and alternatives discussed with: patient or parts representative. Possibility of blood products discussed. Procedures [...] on filedocumented in this encounter Care Teams New Car Make Ready Worker Relationship Specialty Start Date End Date Momo Forbes PCP - General Family Practice 01/02/[address] [address] Ignrid Santana, RN Registered Nurse Transplant 02/10/12 documented as of this encounter
--- OUTSIDE RECORDS SUMMARY | 2022-07-07 10:51 | XMS_ITS | Encounter Summary ---
:1950 Author Organization [place] Address [facility] [place] [address] Care Team Providers Name Role Phone Ingrid Santana RN Unavailable Unavailable Momo Forbes Primary Care Provider Reason for Visit Reason Comments Surgical Followup Post op for kidney transplan t POD 16 Encounter Details Date Type Department Care Team Description 02/18/2014 Office Visit Transplant Surgery Migel Merchant S/P jamari y transplant (Primary Dx); Clinic MD Nathan Postop check; 2nd Floor, Clinic 2A [address] [place] [facility]upp[facility] (H); [facility] 1 95 Atrial fibrillation (H) [phone] [place] [address] [place], [place] (Work) [phone] Social History Tobacco Use [...] fibrillation documented in this encounter Care Teams Breakfast Host Relationship Specialty Start Date End Date Momo Forbes PCP - General Family Practice 01/02/[address] [address] Ingrid Santana, RN Registered Nurse Transplant 02/10/12 documented as of this encounter
--- OUTSIDE RECORDS SUMMARY | 2022-07-07 10:52 | XMS_ITS | Encounter Summary ---
:1950 Author Organization [place] Address [address] [place] [address] Care Team Providers Name Role Phone Ingrid Santana RN Unavailable Unavailable Momo Forbes Primary Care Provider Reason for Visit Reason Onset Date Comments Refill Request 02/12/2014 clotrimazole Encounter Details Date Type Department Care Team Description 02/12/2014 Refill Nephrology Kaitlynn Leon MD Refill Request 2nd Floor, Clinic 2A [facility] (clotrimazole) [address] [phone] Social History Tobacco Use Types Packs/Day Years [...] one month supply. Thanks! Lianne Braswell PharmD [facility] Transplant Program [phone] documented in this encounter Plan of Treatment Not on filedocumented as of this encounter Visit Diagnoses Diagnosis S/P kidney transplant Kidney replaced by transplant documented in this encounter Care Teams Bandoleer Packer Relationship Specialty Start Date End Date Momo Forbes PCP - General Family Practice 01/02/14 [facility] [address] [place] [address] Ingrid Santana, RN Registered Nurse Transplant 02/10/12 documented as of this encounter
--- OUTSIDE RECORDS SUMMARY | 2022-07-07 10:52 | XMS_ITS | Encounter Summary ---
:1950 Author Organization [place] Address [facility] [place] [address] Care Team Providers Name Role Phone Ingrid Santaan RN Unavailable Unavailable Momo Forbes Primary Care Provider Encounter Details Date Type Department Care Team Description 02/11/2014 Radiant Appointment [facility] 1st Floor, Clinic 1D [place], [place] [address] Social History Tobacco Use Types Packs/Day Years [...] filedocumented in this encounter Care Teams Senior Data Modeler Relationship Specialty Start Date End Date Momo Forbes PCP - General Family Practice 01/02/14 [facility] [address] [place] [address] Ingrid Santana, RN Registered Nurse Transplant 02/10/12 documented as of this encounter
--- OUTSIDE RECORDS SUMMARY | 2022-07-07 10:52 | XMS_ITS | Encounter Summary ---
:1950 Author Organization [place] Address [facility] [place] [address] Care Team Providers Name Role Phone Ingrid Santana RN Unavailable Unavailable Momo Forbes Primary Care Provider Reason for Visit Reason Comments Eval/Assessment LABS, ASSESSMENT, EDUCATION AND DRESSING CHANGE. Encounter Details Date Type Department Care Team Description 02/14/2014 Infusion Therapy Specialty Infusion Kaitlynn Leon MD Kidney replaced by transplant (Primary D x); Visit and Procedure Center [facility] S/P kidney transplant [facility] [address] [phone] [place], [place] (Work) [phone] Social History Tobacco Use [...] CDT Diego Guthrie came to [facility] today for a lab and assess following a Kidney transplant on 02/02/14. Discharge date: 02/08/14 regulatory coordinator: Leandro Kahn Phone number patient can be reached at: [phone] Physical Assessment: See physical assessment located under [...] Tuesday. 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/Area Coordinator verbalized understanding, all questions answered: YES [...] Signature INR 2.29 (H) 0.86 - 1.14 [facility] Specimen Anatomical Collection Method Collection Time Receive d Time (Source) Location / / Volume Laterality Blood specimen 02/14/2014 7:51 AM 014 7:58 (specimen) CDT AM CDT Kaitlynn Leon MD LAB - BLOOD ORDERABLES Performing Organization Address City/State/ZIP Code Phon e Number [facility] 500 [place], [place] [phone] [place] [address] LABS Tacrolimus level (02/14/2014 7:51 AM CDT) [facility] gist Method Time Signature Tacrolimus Last 1914 [facility] Dose 02/13/14 [facility] Tacrolimus 7.5 5.0 - [facility] Level 15.0 ug/L [facility] [...] Phon e Number [facility] [address] [facility] (ABNORMAL) CBC with platelets differential (02/14/2014 7:51 AM CDT) [facility] gist Method Time Signature WBC 6.9 4.0 - [facility] 11.0 [place] 10e9/L [place] [facility] RBC Count 2.55 (L) 4.4 - 5.9 [facility] 10e12/L [facility] Hemoglobin 7.8 (L) 13.3 - [facility] 17.7 g/dL [facility] Hematocrit 23.4 (L) 40.0 - [facility] 53.0 % [facility] MCV 92 78 - 100 [facility] fl [facility] MCH 30.6 26.5 - [facility] 33.0 pg [facility] MCHC 33.3 31.5 - [facility] 36.5 g/dL [facility] RDW 14.9 10.0 - [facility] 15.0 % [facility] Platelet Count 122 (L) 150 - 450 [facility] 10e9/L [facility] Diff Method Automated [facility] Method [facility] % Neutrophils 88.7 % [facility] % Lymphocytes 2.6 % [facility] % Monocytes 4.5 % [facility] % Eosinophils 3.8 % [facility] % Basophils 0.1 % [facility] % Immature 0.3 % [facility] Granulocytes [facility] Absolute 6.1 1.6 - 8.3 [facility] Neutrophil 10e9/L [facility] Absolute 0.2 (L) 0.8 - 5.3 [facility] Lymphocytes 10e9/L [facility] Absolute 0.3 0.0 - 1.3 [facility] Monocytes 10e9/L [facility] Absolute 0.3 0.0 - 0.7 [facility] Eosinophils 10e9/L [facility] Absolute 0.0 0.0 - 0.2 [facility] Basophils 10e9/L [facility] Abs Immature 0.0 0 - 0.4 [facility] Granulocytes 10e9/L [facility] Specimen Anatomical Collection Method Collection Time Receive d Time (Source) Location / / Volume Laterality Blood specimen 02/14/2014 7:51 AM 014 7:53 (specimen) CDT AM CDT Joseph Quintana MD LAB - BLOOD ORDERABLES Performing Organization Address City/State/ZIP Code Phon e Number [address] LABS (ABNORMAL) Phosphorus (02/14/2014 7:51 AM CDT) P athologist Signature Phosphorus 2.4 (L) 2.5 - 4.5 [facility] mg/dL [place] [facility] Specimen Anatomical Collection Method Collection Time Receive d Time (Source) Location / / Volume Laterality Blood specimen 02/14/2014 7:51 AM 014 7:53 (specimen) CDT AM CDT Joseph Quintana MD LAB - BLOOD ORDERABLES Performing Organization Address City/State/ZIP Code Phon e Number [address] LABS Magnesium (02/14/2014 7:51 AM CDT) athologist Signature Magnesium 1.6 1.6 - 2.3 [facility] mg/dL CAMPUS LABS Specimen Anatomical Collection Method Collection Time Receive d Time (Source) Location / / Volume Laterality Blood specimen 02/14/2014 7:51 AM 014 7:53 (specimen) CDT AM CDT Joseph Quintana MD LAB - BLOOD ORDERABLES Performing Organization Address City/[facility]/ZIP Code Phon e Number [facility] [address] [place] [address] [facility] LABS (ABNORMAL) Basic metabolic panel (02/14/2014 7:51 AM CDT) [facility] Method Time Signature Sodium 143 133 - 144 [facility] mmol/L [facility] Potassium 5.4 (H) 3.4 - 5.3 [facility] mmol/L [facility] Chloride 113 (H) 94 - 109 [facility] mmol/L [facility] Carbon Dioxide 20 20 - 32 [facility] mmol/L [facility] Anion Gap 9 6 - 17 [facility] mmol/L [facility] Glucose 193 (H) 60 - 99 [facility] mg/dL [facility] Urea Nitrogen 18 7 - 30 [facility] mg/dL [facility] Creatinine 1.82 (H) 0.66 - [facility] 1.25 mg/dL [facility] GFR Estimate 38 (L) >60 [facility] mL/min/1.7 [facility] GFR Estimate If 46 (L) >60 [facility] Black mL/min/1.7 [place] m2 [facility]AMPUS LABS Calcium 9.2 8.5 - 10.4 [facility] mg/dL [facility] Specimen Anatomical Collection Method Collection Time Receive d Time (Source) Location / / Volume Laterality Blood specimen 02/14/2014 7:51 AM 014 7:53 (specimen) CDT AM CDT Joseph Quintana MD LAB - BLOOD ORDERABLES Performing Organization Address City/[facility]/ZIP Code Phon e Number [facility] [address] [place] [address] [facility] LABS documented in this encounter Visit Diagnoses Diagnosis Kidney replaced by transplant - Primary S/P kidney transplant Kidney replaced by transplant documented in this encounter Care Teams Client Evaluator Relationship Specialty Start Date End Date Momo Forbes PCP - General Family Practice 01/02/14 [facility] [address] [place] [address] Ingrid Santana, RN Registered Nurse Transplant 02/10/12 16 documented as of this encounter
--- OUTSIDE RECORDS SUMMARY | 2022-07-07 10:52 | XMS_ITS | Encounter Summary ---
:1950 Author Organization [place] Address [facility] [place] [address] Care Team Providers Name Role Phone Ingrid Santana RN Unavailable Unavailable Momo Forbes Primary Care Provider Reason for Visit Reason Comments Eval/Assessment LBA Encounter Details Date Type Department Care Team Description 02/11/2014 Office Visit Specialty Infusion Kaitlynn Leon, Complica tion of transplanted kidney (Primary Dx); and Procedure Center Anemia; [facility] HTN (hy pertension); [facility] Immunosuppression (H); 2nd Floor [address] Hypophosphatemia 6 [facility] [address] [place], [place] [phone] [address] (Work) [phone] Social History Tobacco Use Types Packs/Day Years [...] Years of Education: 14 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 Discharge: 02/08/2014 Using Medcard: Yes Med review: Went over all meds and dosing with patient and Tete. Went over Prograf and Cellcept side effects. Medication questions/concerns: Patient requested that we transfer 4 rx's (to profile) from local pharmacy to us here. 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 Using medbox: Yes Viewed DVD: Didn't bring up Pain: #2-3, feels good, rarely using Oxycodone Other Concerns: none No further questions for this pharmacist. [facility]i [facility] [phone] documented in this encounter Plan of Treatment [...] INR 2.28 (H) 0.86 - 1.14 [facility] LABS Specimen Anatomical Collection Method Collection Time Receive d Time (Source) Location / / Volume Laterality 02/11/2014 9:30 AM 4 9:41 CDT AM CDT Kaitlynn Leon MD LAB - BLOOD ORDERABLES Performing Organization Address City/State/ZIP Code Phon e Number [id number] [place] [address] LABS documented in this encounter Visit Diagnoses Diagnosis Complication of transplanted kidney - Pr imary Complications of transplanted kidney Anemia Anemia, unspecified HTN (hypertension) Unspecified essential hypertension Immunosuppression (H) Unspecified disorder of immune mechanism Hypophosphatemia Disorders of phosphorus metabolism documented in this encounter Care Teams Supervisor Of Instruction Relationship Specialty Start Date End Date Momo Forbes PCP - General Family Practice 01/02/14 [facility] [address] [place] [address] Ingrid Santana, RN Registered Nurse Transplant 02/10/12 documented as of this encounter
--- OUTSIDE RECORDS SUMMARY | 2022-07-07 10:52 | XMS_ITS | Encounter Summary ---
:1950 Author Organization [place] Address [address] [place] [address] Care Team Providers Name Role Phone Ingrid Santana RN Unavailable Unavailable Momo Forbes Primary Care Provider Reason for Referral CV Cardio consult - Closed Specialty Diagnoses / Procedures Referred By Contact Refer red To Contact Diagnoses Atrial fibrillation (H) Kaitlynn Leon MD [facility] [address] [place] [address] Fax: Referral ID Status Reason Start Date Expiration Date Visits Requ ested Visits Authorized [id number] Closed 02/12/2014 08/11/2014 1 1 Reason for Visit Reason Comments RECHECK Encounter Details Date Type Department Care Team Description 02/12/2014 Office Visit Specialty Infusion Kaitlynn Leon, S/P kidn ey transplant (Primary Dx); and Procedure Center Atrial fibrillation (H); [facility] Hypopho sphatemia; [facility] Nausea; 2nd Floor [address] Immunosuppression (H) [address] [facility] [address] [place], [place] [phone] [address] (Work) [phone] Social History Tobacco Use Types Packs/Day Years [...] Dear Diego Guthrie Thank you for choosing [facility]icians Specialty Infusion and Procedure Center ([facility]) for your transplant cares. The following information is a summary of our appointment as well as important reminders. Please make sure your phone is available today because I will call to update you with your anti-rejection drug levels and possibly make changes to your anti- rejection dosages. Additional information: -Decrease your coumadin dose to 5 mg every evening -Please return to [facility] on for Labs & assessment -Call us or Leandro Kahn with any questions. -Your Home Care Nurse should begin visits on TuesdayFebruary 14. If you do not hear from them by Tuesday morning, try to reach them at [phone]. We look forward in seeing you on your next appointment here at [facility]. Please don???t hesitate to callus at [phone] to reschedule any of your appointments or to speak with one of the [facility] registered nurses. It was a pleasure taking care of you today. 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
--- OUTSIDE RECORDS SUMMARY | 2022-07-07 10:52 | XMS_ITS | Encounter Summary ---
:1950 Author Organization [place] Address [facility] [place] [address] Care Team Providers Name Role Phone Ingrid Santana RN Unavailable Unavailable Momo Forbes Primary Care Provider Reason for Visit Reason Comments Eval/Assessment s/p kidney transplant 8days ago Encounter Details Date Type Department Care Team Description 02/10/2014 Infusion Therapy Specialty Infusion Finger, Migel Mac y replaced by Visit and Procedure MD Nathan transplant (Primary Center [address] [place] [address] Dx) [place] [address] 5 [facility] 2nd Floor [address] [phone] [place], [place] (Work) [phone] Social History Tobacco Use [...] 10:40 AM CDT Diego Guthrie came to [facility] today for a lab and assess 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 Discharge date: 02/08/14 development coordinator: Leandro Kahn RN Phone number patient can be reached at: [phone] (girlfriend's cell) Physical Assessment: See physical assessment located under Document Flowsheets. Incision site: stapled, leaking tiny amount clear pink/pale yellow fluid from mid incision (1.5inch area on dressing from 3hours ago) covered with ABD Lines: MARGARET rlq; 30cc out last tamara; 10cc out overnite;; lite pink clear fluid Gibbs: na states is not having voiding difficulty Urine clarity: not asked Hydration: states he [id number] water yesterday but does not like that [...] Discharge Plan Pt will follow up with [facility] lab/assess in am 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/Cart Driver verbalized understanding, all questions answered: YES Discharged [...] Results Tacrolimus level (02/10/2014 8:37 AM CDT) [facility] Method Time Signature Tacrolimus Not Provided [facility] Last Dose [facility] LABS Tacrolimus 6.8 5.0 - [facility] Level 15.0 ug/L [facility] LAB[facility] Comment: Tacrolimus Reference Range Kidney Transplant [...] Phon e Number [facility] [address] [place], [place] [id number] [place] [address] LABS (ABNORMAL) CBC with platelets differential (02/10/2014 8:37 AM CDT) Component Value Ref Test Analysis Performed At [facility] gist Range Method Time Signature WBC 5.5 4.0 - [facility] 11.0 [place] LABS 10e9/L RBC Count 2.53 (L) 4.4 - [facility] 5.9 [place] LABS 10e12/L Hemoglobin 7.9 (L) 13.3 - [facility] 17.7 [place] LABS g/dL Hematocrit 23.2 (L) 40.0 - [facility] 53.0 % CAMPUS LABS MCV 92 78 - 100 [facility] fl CAMPUS LABS MCH 31.2 26.5 - [facility] 33.0 pg CAMPUS LABS MCHC 34.1 31.5 - [facility] 36.5 CAMPUS LABS g/dL RDW 14.5 10.0 - [facility] 15.0 % CAMPUS LABS Platelet Count 89 (L) 150 - [facility] 450 CAMPUS LABS 10e9/L Diff Method [...] Code Phon e Number [id number] [facility] LABS (ABNORMAL) Phosphorus (02/10/2014 8:37 AM CDT) P athologist Signature Phosphorus 1.9 (L) 2.5 - 4.5 [facility] mg/dL CAMPUS LABS Specimen Anatomical Collection Method Collection Time Receive d Time (Source) Location / / Volume Laterality Blood specimen 02/10/2014 8:37 AM 014 8:38 (specimen) CDT AM CDT Migel Merchant MD LAB - BLOOD ORDERABLES Performing Organization Address City/State/ZIP Code Phon e Number [facility] [address] [place] [address] [facility] LABS Magnesium (02/10/2014 8:37 AM CDT) P athologist Signature Magnesium 2.0 1.6 - 2.3 [facility] UNIVERSITY mg/dL CAMPUS LABS Specimen Anatomical Collection Method Collection Time Receive d Time (Source) Location / / Volume Laterality Blood specimen 02/10/2014 8:37 AM 014 8:38 (specimen) CDT AM CDT Migel Merchant MD LAB - BLOOD ORDERABLES Performing Organization Address City/[facility] Code Phon e Number [facility] [address] [place] [address] [facility] LABS (ABNORMAL) Basic metabolic panel (02/10/2014 8:37 AM CDT) Patholo gist Method Time Signature Sodium 144 133 - 144 [facility] mmol/L [facility] LABS Potassium 4.8 3.4 - 5.3 [facility] mmol/L [facility] LABS Chloride 111 (H) 94 - 109 [facility] mmol/L [facility] LABS Carbon Dioxide 22 20 - 32 [facility] mmol/L [facility] LABS Anion Gap 10 6 - 17 [facility] mmol/L [facility]S Glucose 128 (H) 60 - 99 [facility] mg/dL [facility] LABS Urea Nitrogen 34 (H) 7 - 30 [facility] mg/dL [facility] LABS Creatinine 1.80 (H) 0.66 - [facility] 1.25 mg/dL [facility] LABS GFR Estimate 38 (L) >60 [facility] mL/min/1.7 UNIVERSITY m2 CAMPUS LABS GFR Estimate If 46 (L) >60 [facility] Black mL/min/1.7 [place] [address] CAMPUS LABS Calcium 9.1 8.5 - 10.4 [facility] mg/dL [facility] LABS Specimen Anatomical Collection Method Collection Time Receive d Time (Source) Location / / Volume Laterality Blood specimen 02/10/2014 8:37 AM 014 8:38 (specimen) CDT AM CDT Migel Merchant MD LAB - BLOOD ORDERABLES Performing Organization Address City/State/ZIP Code Phon e Number [facility] [address] [place] [address] [facility] LABS documented in this encounter Visit Diagnoses Diagnosis Kidney replaced by transplant - Primary documented in this encounter Care Teams Stock Transfer Clerk Relationship Specialty Start Date End Date Momo Forbes PCP - General Family Practice 01/02/14 [facility] [address] [place] [id number] Ingrid Santana, RN Registered Nurse Transplant 02/10/12 documented as of this encounter
--- OUTSIDE RECORDS SUMMARY | 2022-07-07 10:52 | XMS_ITS | Encounter Summary ---
:1950 Author Organization [place] Address [facility] [place] [address] Care Team Providers Name Role Phone Ingrid Santana RN Unavailable Unavailable Momo Forbes Primary Care Provider Reason for Visit Reason Comments Eval/Assessment LBA Encounter Details Date Type Department Care Team Description 02/12/2014 Infusion Therapy Specialty Infusion Finger, Migel Mac y replaced by Visit and Procedure MD Nathan transplant (Primary Center [address] [place] [address] Dx) [facility] [place] [address] 5 [facility] 2nd Floor [address] [phone] [place], [place] (Work) [address] Social History Tobacco Use [...] Dear Diego Guthrie Thank you for choosing [facility] Physicians Specialty Infusion and Procedure Center ([facility]) for your transplant cares. The following information is a summary of our appointment as well as important reminders. Additional information: We will see you on for labs & assessment. We look forward in seeing you on your next appointment here at [facility]. Please don???t hesitate to callus at [phone] to reschedule any of your appointments or to speak with one of the [facility] registered nurses. It was a pleasure taking care of you today. Sincerely, Gladis Olvera, BOGDAN [facility] Specialty Infusion [facility] Procedure Center [address] [place] [address] January 2014Tuesday 1 2 3 4 5 6 7 8 9 10 11 12 13 14 Admission 12:55 PM Migel Merchant MD [address] 7[address] [facility] [place] (Discharge: 02/08/2014) XR CHEST 2 VIEWS 1:55 PM (10 min.) [email or web address] [facility], Radiology TRANSPLANT KIDNEY RECIPIENT DONOR 4:00 PM Migel Merchant MD UU OR XR CHEST PORT 2 VIEWS 11:10 PM (15 min.) Uuxrph1 [facility], Radiology 15 US RENAL TRANSPLANT 7:50 AM (50 min.) Uuus2 [facility], Ultrasound 16 IP EVALUATION 6:00 AM (60 min.) Angela Wilder, PT [facility], Physical Therapy UU TRANSPLANT MEDICATIONS 11:00 AM (120 min.) Josseline Almendarez, BOGDAN [facility], Patient Learning Center UU TRANSPLANT FOLLOW-UP CARE 1:00 PM (120 min.) Josseline Almendarez RN [facility] [place], Patient Learning Center ECH LIMITED 3:35 PM (60 min.) Uuechipr1 [facility], Echocardiography 17 IP TREATMENT 5:30 AM (30 min.) Roderick Lawson, PT [facility], Physical Therapy 18 IP TREATMENT 5:30 AM (30 min.) Yesenia Rodriguez, PT [facility], Physical Therapy 19 IP TREATMENT 5:30 AM (30 min.) Reina Kenny, PT [facility], Physical Therapy US RENAL 11:15 AM (60 min.) Uuus2 [facility], Ultrasound 20 IP TREATMENT 5:30 AM (30 min.) Reina Kenny, PT [facility], Physical Therapy UU TRANSPLANT MEDICATIONS 11:00 AM (120 min.) Em Mohan, RN [facility], Patient Learning Center 21 [facility] NEW TRANSPLANT 7:00 AM (360 min.) [facility] Sipc Chair 9 Specialty Infusion and Procedure Center 22 [facility] NEW TRANSPLANT 7:00 AM (360 min.) [facility] Sip[facility] Chair 11 Specialty Infusion and Procedure Center 23 [facility] NEW TRANSPLANT 7:00 AM (360 min.) [facility] Sipc Chair 12 Specialty Infusion and Procedure Center [facility] KIDNEY TX DISCHARGE 9:00 AM (30 min.) Kaitlynn Leon MD Specialty Infusion and Procedure Center US RENAL TRANSPLANT 2:00 PM (60 min.) [address] 24 [facility] NEW TRANSPLANT 7:00 AM (360 min.) [facility] Sipc Bed 14 Specialty Infusion and Procedure Center [facility] SIPC RETURN 9:00 AM (30 min.) Kaitlynn Leon MD Specialty Infusion and Procedure Center 25 26 [facility] SIPC PROCEDURE 7:00 AM (60 min.) [facility] Sipc Chair 9 Specialty Infusion and Procedure Center [facility] SIPC RETURN 8:00 AM (30 min.) Kaitlynn Leon MD Specialty Infusion and Procedure Center 27 28 29 30 [facility] NEW 9:00 AM (30 min.) [facility] Cvc Consult [facility] Physicians Heart [facility] KIDNEY POST OP 1:45 PM [...] 4:27 PM CDT Diego Guthrie came to [facility] today for a lab and assess following a Kidney transplant on 02/02/14. Discharge date: 02/08/14 cardiology coordinator: Leandro Kahn Phone number patient can be reached at: [phone] Physical Assessment: See physical assessment located under Document Flowsheets. Incision site: with modesta & slight ecchymosis. Dry dressing changed. Lines: MARGARET drain to bulb suction is draining sero sanguinous fluid. Continues to drain more than 30 ml/day. Pt will have Tuesday off from [facility] and will return for LBA. Gibbs: [...] of care for today: Pt presented to [facility] for labs and assessment. Labs drawn, reviewed with Dr. Leon. Oral phosphorus tablets ordered. Coumadin dose decreased to 5 mg every evening. Pt will have Tuesday off, return and will start with [facility] Nursing on TuesdayFebruary 15. Pt's MARGARET [...] up with 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 LABS Specimen Anatomical Collection Method Collection Time Receive d Time (Source) Location / / Volume Laterality Blood specimen 02/12/2014 7:41 AM 014 7:43 (specimen) CDT AM CDT Kaitlynn Leon MD LAB - BLOOD ORDERABLES Performing Organization Address City/State/ZIP Code Phon e Number [facility] [address] [place] [address] [facility] LABS Tacrolimus level (02/12/2014 7:41 AM CDT) [facility] gist Method Time Signature Tacrolimus Last 02/11/14 [facility] Dose [address] [facility] LABS Tacrolimus 8.4 5.0 - [facility] Level 15.0 ug/L [facility] [...] e Number [facility] [address] [place] [address] [facility] LABS (ABNORMAL) CBC with platelets differential (02/12/2014 7:41 AM CDT) Patholo gist Method Time Signature WBC 5.0 4.0 - [facility] 11.0 [place] 10e9/L [place] LABS RBC Count 2.41 (L) 4.4 - 5.9 [facility] 10e12/L [facility] LABS Hemoglobin 7.4 (L) 13.3 - [facility] 17.7 g/dL [facility] LABS Hematocrit 22.3 (L) 40.0 - [facility] 53.0 % [facility] LABS MCV 93 78 - 100 [facility] fl [facility] LABS MCH 30.7 26.5 - [facility] 33.0 pg [facility]S MCHC 33.2 31.5 - [facility] 36.5 g/dL [facility]S RDW 14.5 10.0 - [facility] 15.0 % [facility] Platelet Count 95 (L) 150 - 450 [facility] 10e9/L [facility]S Diff Method Automated [facility] Method [facility] LAB[facility] % Neutrophils 85.2 % [facility] LABS % Lymphocytes 5.6 % [facility] LABS % Monocytes 4.6 % [facility] LABS % Eosinophils 4.2 % [facility] % Basophils 0.2 % [facility] % Immature 0.2 % [facility] Granulocytes [facility] Absolute 4.3 1.6 - 8.3 [facility] Neutrophil 10e9/L [facility] Absolute 0.3 (L) 0.8 - 5.3 [facility] Lymphocytes 10e9/L [facility] Absolute 0.2 0.0 - 1.3 [facility] Monocytes 10e9/L [facility] Absolute 0.2 0.0 - 0.7 [facility] Eosinophils 10e9/L [place] [...] e Number [facility] [address] [place], [place] [id number] [place] [address] LABS (ABNORMAL) Phosphorus (02/12/2014 7:41 AM CDT) P athologist Signature Phosphorus 1.7 (L) 2.5 - 4.5 [facility] UNIVERSITY mg/dL CAMPUS LABS Specimen Anatomical Collection Method Collection Time Receive d Time (Source) Location / / Volume Laterality Blood specimen 02/12/2014 7:41 AM 014 7:43 (specimen) CDT AM CDT Kaitlynn Leon MD LAB - BLOOD ORDERABLES Performing Organization Address City/[facility] Phon e Number [facility] [address] LABS Magnesium (02/12/2014 7:41 AM CDT) athologist Signature Magnesium 1.8 1.6 - 2.3 [facility] UNIVERSITY mg/dL CAMPUS LABS Specimen Anatomical Collection Method Collection Time Receive d Time (Source) Location / / Volume Laterality Blood specimen 02/12/2014 7:41 AM 014 7:43 (specimen) CDT AM CDT Kaitlynn Leon MD LAB - BLOOD ORDERABLES Performing Organization Address City/State/[facility] Code Phon e Number [facility] [address] [place], [place] [id number] [place] [address] LABS (ABNORMAL) Basic metabolic panel (02/12/2014 7:41 AM CDT) [facility] gist Method Time Signature Sodium 142 133 - 144 [facility] mmol/L [facility] LABS Potassium 4.9 3.4 - 5.3 [facility] mmol/L [facility]S Chloride 113 (H) 94 - 109 [facility] mmol/L [facility]S Carbon Dioxide 21 20 - 32 [facility] mmol/L [facility] Anion Gap 9 6 - 17 [facility] mmol/L [facility]S Glucose 127 (H) 60 - 99 [facility] mg/dL [facility]S Urea Nitrogen 24 7 - 30 [facility] mg/dL [facility]S Creatinine 1.92 (H) 0.66 - [facility] 1.25 mg/dL [facility] LABS GFR Estimate 36 (L) >60 [facility] mL/min/1.7 [place] m2 CAMPUS LABS GFR Estimate If 43 (L) >60 [facility] Black mL/min/1.7 [place] [address] CAMPUS LABS Calcium 8.9 8.5 - 10.4 [facility] mg/dL [facility] Specimen Anatomical Collection Method Collection Time Receive d Time (Source) Location / / Volume Laterality Blood specimen 02/12/2014 7:41 AM 014 7:43 (specimen) CDT AM CDT Kaitlynn Leon MD LAB - BLOOD ORDERABLES Performing Organization Address City/State/ZIP Code Phon e Number [facility] [address] [place] [address] [facility] LABS documented in this [...] after. documented in this encounter Care Teams Ad Operations Intern Relationship Specialty Start Date End Date Momo Forbse PCP - General Family Practice 01/02/[address] [address] Ingrid Santana, RN Registered Nurse Transplant 02/10/12 documented as of this encounter
--- OUTSIDE RECORDS SUMMARY | 2022-07-07 10:52 | XMS_ITS | Encounter Summary ---
:1950 Author Organization [place] Address [facility] [place] [address] Care Team Providers Name Role Phone Ingrid Santana RN Unavailable Unavailable Momo Forbes Primary Care Provider Encounter Details Date Type Department Care Team Description 02/11/2014 Orders Only Nephrology Josseline Nice, Kidney replaced by 2nd Floor, Clinic 2A BAKEL[facility] MOLDER transplant (Primary Tommy Wilburn Dx) [address] [id number] Social History Tobacco Use Types Packs/Day Years [...] Primary documented in this encounter Care Teams Strip Mine Supervisor Relationship Specialty Start Date End Date Momo Forbes PCP - General Family Practice 01/02/14 [facility] [address] [place] [address] Ingrid Santana RN Registered Nurse Transplant 02/10/12 documented as of this encounter
--- OUTSIDE RECORDS SUMMARY | 2022-07-07 10:52 | XMS_ITS | Encounter Summary ---
:1950 Author Organization [place] Address [facility]ly [facility] [place] [address] Care Team Providers Name Role Phone Ingrid Santana RN Unavailable Unavailable Momo Forbes Primary Care Provider Reason for Visit Reason Comments Eval/Assessment LBA Encounter Details Date Type Department Care Team Description 02/09/2014 Infusion Therapy Specialty Infusion Finger, Migel Mac y replaced by transplant (Primary Dx); Visit and Procedure MD [facility] [address] [place] [address] 19 5 [facility] 2nd Floor [address] [phone] [place], [place] (Work) [phone] Social History Tobacco Use [...] Hospital [facility] ([facility]) for your transplant cares. The following [...] Bring Humulog Insulin Pen to your future [facility] appointments. 5) Return to [facility] tomorrow at 07:30 a.m We look forward in seeing you on your next appointment here at [facility]. Please don???t hesitate to callus at [phone] to reschedule any of your appointments or to speak with one of the [facility] registered nurses. It was a pleasure taking care of you today. Sincerely, MARC HERNANDEZ RN [facility] [address] [address] Coumadin Information: Keep Your Diet Steady Keep [...] 7:31 AM CDT Diego Guthrie came to [facility] today for a lab and assess following a Kidney transplant on 02/02/14. Discharge date: 02/08/14 printing services coordinator: Leandro Kahn Phone number patient can be reached at: [phone] Physical Assessment: See physical assessment located under [...] s/s insulin this morning/nor brought insulin to [facility] appt. I reviewed w/pt the need to monitor BG's QID and to bring Insulin to future [facility] appt's. Last BM: yesterday, loose, pt stopped stool softeners. Pain: Incisional pain rated a 5 , declines pain meds at this time. Laboratory tests: Standard labs drawn. Plan of care for today: 1) Labs/Nausea/Orthostatic BP/MARGARET output reviewed with Dr Hernandes, orders: Increase Zofran to 8mg every 6-8 hours, MARGARET to remain in another day, Administer 1L of NS today, d/c pt from [facility] post 1L NS, return to [facility] tomorrow for LBA, No change in [...] and Phone numbers to call with concenrs (printing services coordinator, [address] [facility]) Patient verbalized understanding and all questions answered. Drug level: Prograf level today reviewed with Dr Hernandes who gave orders to no change in dose. INR of 1.59 also reviewed w/Dr Hernandes who gave orders to increase Coumadin to 7.5mg QD. Patient was updated with this information and verbalized understanding. Discharge Plan Pt will follow up with [facility] tomorrow at 0730. Bring Humulog Insulin Pen to [facility] today (pt did not bring to today's appt). 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, all questions answered: YES Discharged [...] Signature INR 1.59 (H) 0.86 - 1.14 [facility] LABS Specimen Anatomical Collection Method Collection Time Receive d Time (Source) Location / / Volume Laterality Blood specimen 02/09/2014 8:30 AM 014 (specimen) CDT 11:07 AM CDT Migel Merchant MD LAB - BLOOD ORDERABLES Performing Organization Address City/State/ZIP Code Phon e Number [facility] [address] [place], [place] [phone] [place] [address] LABS Tacrolimus level (02/09/2014 7:40 AM CDT) [facility] gist Method Time Signature Tacrolimus Not Provided [facility] Last Dose [facility] LABS Tacrolimus 8.0 5.0 - [facility] Level 15.0 ug/L [facility] LABS Comment: Tacrolimus Reference [...] e Number [facility] [address] [place], [place] [phone] [place] [address] LABS (ABNORMAL) CBC with platelets differential (02/09/2014 7:40 AM CDT) [facility] Method Time Signature WBC 5.8 4.0 - [facility] 11.0 [place] 10e9/L [place] LABS RBC Count 2.66 (L) 4.4 - 5.9 [facility] 10e12/L [facility] LABS Hemoglobin 8.2 (L) 13.3 - [facility] 17.7 g/dL [facility] LABS Hematocrit 24.4 (L) 40.0 - [facility] 53.0 % [facility] LABS MCV 92 78 - 100 [facility] fl [facility] LABS MCH 30.8 26.5 - [facility] 33.0 pg [facility] LABS MCHC 33.6 31.5 - [facility] 36.5 g/dL [facility] LABS RDW 14.6 10.0 - [facility] 15.0 % [facility] LABS Platelet Count 78 (L) 150 - 450 [facility] 10e9/L [facility] LABS Diff Method Automated [facility] Method [facility] LABS % Neutrophils 84.8 % [facility] LABS % Lymphocytes 5.2 % [facility] LABS % Monocytes 6.9 % [facility] LABS % Eosinophils 2.9 % [facility] LABS % Basophils 0.0 % [facility] LABS % Immature 0.2 % [facility] Granulocytes [facility] LABS Absolute 4.9 1.6 - 8.3 [facility] Neutrophil 10e9/L [facility] LABS Absolute 0.3 (L) 0.8 - 5.3 [facility] Lymphocytes 10e9/L [facility] LABS Absolute 0.4 0.0 - 1.3 [facility] Monocytes 10e9/L [facility] LABS Absolute 0.2 0.0 - 0.7 [facility] Eosinophils 10e9/L [facility] LABS Absolute 0.0 0.0 - 0.2 [facility] Basophils 10e9/L [facility] LABS Abs Immature 0.0 0 - 0.4 [facility] Granulocytes 10e9/L [facility] LABS Specimen Anatomical Collection Method Collection Time Receive d Time (Source) Location / / Volume Laterality Blood specimen 02/09/2014 7:40 AM 014 7:49 (specimen) CDT AM CDT Migel Merchant MD LAB - BLOOD ORDERABLES Performing Organization Address City/State/ZIP Code Phon e Number [phone] [place] [address] LABS (ABNORMAL) Phosphorus (02/09/2014 7:40 AM CDT) P athologist Signature Phosphorus 2.0 (L) 2.5 - 4.5 [facility] mg/dL CAMPUS LABS Specimen Anatomical Collection Method Collection Time Receive d Time (Source) Location / / Volume Laterality Blood specimen 02/09/2014 7:40 AM 014 7:49 (specimen) CDT AM CDT Migel Merchant MD LAB - BLOOD ORDERABLES Performing Organization Address City/[facility]/ZIP Code Phon e Number [facility] [address] LABS Magnesium (02/09/2014 7:40 AM CDT) [...] e Number [facility] [address] [place], [place] [phone] [place] [address] LABS (ABNORMAL) Basic metabolic panel (02/09/2014 7:40 AM CDT) Patholo gist Method Time Signature Sodium 145 (H) 133 - 144 [facility] mmol/L [facility] LABS Potassium 4.5 3.4 - 5.3 [facility] mmol/L [facility] LABS Chloride 110 (H) 94 - 109 [facility] mmol/L [facility] LABS Carbon Dioxide 24 20 - 32 [facility] mmol/L [facility] LABS Anion Gap 10 6 - 17 [facility] mmol/L [facility] LABS Glucose 137 (H) 60 - 99 [facility] mg/dL [facility] LABS Urea Nitrogen 48 (H) 7 - 30 [facility] mg/dL [facility] LABS Creatinine 2.02 (H) 0.66 - [facility] 1.25 mg/dL [facility] LABS GFR Estimate 34 (L) >60 [facility] mL/min/1.7 [place] m2 CAMPUS LABS GFR Estimate If 41 (L) >60 [facility] Black mL/min/1.7 [place] m2 CAMPUS LABS Calcium 9.2 8.5 - 10.4 [facility] mg/dL [facility] LABS Specimen Anatomical Collection Method Collection Time Receive d Time (Source) Location / / Volume Laterality Blood specimen 02/09/2014 7:40 AM 014 7:49 (specimen) CDT AM CDT Migel Merchant MD LAB - BLOOD ORDERABLES Performing Organization Address City/State/ZIP Code Phon e Number [facility] [address] [place] [address] [facility] LABS documented in this encounter Visit Diagnoses [...] dose documented in this encounter Care Teams Roll Up Machine Operator Relationship Specialty Start Date End Date Momo Forbes PCP - General Family Practice 01/02/14 [facility] [address] [place] [address] Ingrid Santana, RN Registered Nurse Transplant 02/10/12 documented as of this encounter
--- OUTSIDE RECORDS SUMMARY | 2022-07-07 10:52 | XMS_ITS | Encounter Summary ---
:1950 Author Organization [place] Address [facility] [place] [address] Care Team Providers Name Role Phone Ingrid Santana RN Unavailable Unavailable Momo Forbes Primary Care Provider Reason for Visit Reason Comments Eval/Assessment LBA Encounter Details Date Type Department Care Team Description 02/11/2014 Infusion Therapy Specialty Infusion Finger, Migel Mac y replaced by Visit and Procedure MD Nathan transplant (Primary Center [address] [place] [address] Dx) [facility] [place] [address] 5 [facility] 2nd Floor [address] [phone] [place], [place] (Work[place] [phone] Social History Tobacco Use [...] Center [facility] ([facility]) for your transplant cares. The [...] regarding the result at your appointment in [facility] tomorrow. We look forward in seeing you on your next appointment here at [facility]. Please don???t hesitate to callus at [phone] to reschedule any of your appointments or to speak with one of the [facility] registered nurses. It was a pleasure taking care of you today. Sincerely, Gladis Olvera RN [facility] [address] [place] [address]. [place] [address] documented in this encounter Progress Notes Gladis Olvera RN - 02/11/2014 8:43 AM CDT Diego Guthrie came to [facility] today for a lab and assess following a Kidney transplant on 02/02/14. Discharge date: 02/08/14 assisted living coordinator: Leandro Kahn Phone number patient can be reached at: [phone] Physical Assessment: See physical assessment located under Document Flowsheets. Incision site: Dry dressing with modesta. Dressing changed. Small amt oozing, Small amt ecchymosis. Pt instructed on signs/symptoms of infection. Some swelling under incision, pt has known hematoma andwill have a renal ultrasound today at 2pm. Lines: MARGARET drain to bulb suction, serosanguinous drainage. 20 ml at [facility] appointment today. Gibbs: n/a Urine clarity: clear per patient report Hydration: discussed drinking 2-3 L daily Nutrition: Pt states appetite is improving Last BM: 02/10/14 evening Pain: 2 at rest, 5 with activity. Pain adequately controlled with home medications Laboratory tests: Standard labs drawn. Plan of care for today: Pt presents to [facility] for Labs & Assessment following Kid Txp on 02/02/14. Pt's creatinine up to 1.97 today, but ok per Dr. Leon considering the complications with transplant. Hgb 7.4 and pt c/o slight fatigue. Discussed with Dr. Leon and will hold off on a transfusion for now, but will continue to monitor hgb at [facility] appointments over the next 2 days. INR 2.23, EKG obtained and pt found to be in Normal Sinus Rhythm. Pt will remain on coumadin for now and will follow up with a group exercise instructor near [facility]. Continue daily INRs while pt is coming to [facility]. Pt's MARGARET continues to drain more [...] Discharge Plan Pt will follow up with [facility] tomorrow. 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/Electroneurodiagnostic Technician verbalized understanding, all questions answered: YES [...] Results Tacrolimus level (02/11/2014 7:40 AM CDT) [facility] gist Method Time Signature Tacrolimus Last 02/10/14 [facility] Dose [address] [facility] LABS Tacrolimus 12.2 5.0 - [facility] Level 15.0 ug/L [facility] LABS Comment: Tacrolimus Reference Range [...] Code Phon e Number [facility] [address] [place], [place] [phone] [place] [address] LABS (ABNORMAL) CBC with platelets differential (02/11/2014 7:40 AM CDT) [facility] gist Method Time Signature WBC 4.4 4.0 - [facility] 11.0 [facility] 10e9/L [place] LABS RBC Count 2.39 (L) 4.4 - 5.9 [facility] 10e12/L [facility] LABS Hemoglobin 7.4 (L) 13.3 - [facility] 17.7 g/dL [facility] LABS Hematocrit 22.1 (L) 40.0 - [facility] 53.0 % [facility] LABS MCV 93 78 - 100 [facility] fl [facility] LABS MCH 31.0 26.5 - [facility] 33.0 pg [facility] LABS MCHC 33.5 31.5 - [facility] 36.5 g/dL [facility] LABS RDW 14.7 10.0 - [facility] 15.0 % [facility] LABS Platelet Count 83 (L) 150 - 450 [facility] 10e9/L [facility] LABS Diff Method Automated [facility] Method [facility] LABS % Neutrophils 80.4 % [facility] LABS % Lymphocytes 8.2 % [facility] LABS % Monocytes 5.2 % [facility] LABS % Eosinophils 5.7 % [facility] LABS % Basophils 0.0 % [facility] LABS % Immature 0.5 % [facility] Granulocytes [facility] LABS Absolute 3.5 1.6 - 8.3 [facility] Neutrophil 10e9/L [facility] LABS Absolute 0.4 (L) 0.8 - 5.3 [facility] Lymphocytes 10e9/L [facility] LABS Absolute 0.2 0.0 - 1.3 [facility] Monocytes 10e9/L [facility] LABS Absolute 0.3 0.0 - 0.7 [facility] Eosinophils 10e9/L [facility] LABS Absolute 0.0 0.0 - 0.2 [facility] Basophils 10e9/L [facility] LABS Abs Immature 0.0 0 - 0.4 [facility] Granulocytes 10e9/L [facility] LABS Specimen Anatomical Collection Method Collection Time Receive d Time (Source) Location / / Volume Laterality Blood specimen 02/11/2014 7:40 AM 014 7:41 (specimen) CDT AM CDT Kaitlynn Leon MD LAB - BLOOD ORDERABLES Performing Organization Address City/[facility]/ZIP Code Phon e Number [facility] [address] LABS (ABNORMAL) Phosphorus (02/11/2014 7:40 AM CDT) athologist Signature Phosphorus 1.9 (L) 2.5 - 4.5 [facility] mg/dL [place] LABS Specimen Anatomical Collection Method Collection Time Receive d Time (Source) Location / / Volume Laterality Blood specimen 02/11/2014 7:40 AM 014 7:41 (specimen) CDT AM CDT Kaitlynn Leon MD LAB - BLOOD ORDERABLES Performing Organization Address City/[facility]/ZIP Code Phon e Number [address] LABS Magnesium (02/11/2014 7:40 AM CDT) athologist Signature Magnesium 1.9 1.6 - 2.3 [facility] mg/dL [place] LABS Specimen Anatomical Collection Method Collection Time Receive d Time (Source) Location / / Volume Laterality Blood specimen 02/11/2014 7:40 AM 014 7:41 (specimen) CDT AM CDT Kaitlynn Leon MD LAB - BLOOD ORDERABLES Performing Organization Address City/[facility]/ZIP Code Phon e Number [address] LABS (ABNORMAL) Basic metabolic panel (02/11/2014 7:40 AM CDT) [facility] Method Time Signature Sodium 142 133 - 144 [facility] mmol/L [facility] LABS Potassium 5.4 (H) 3.4 - 5.3 [facility] mmol/L [facility] LABS Chloride 113 (H) 94 - 109 [facility] mmol/L [facility] LABS Carbon Dioxide 22 20 - 32 [facility] mmol/L [facility] LABS Anion Gap 8 6 - 17 [facility] mmol/L [facility] LABS Glucose 155 (H) 60 - 99 [facility] mg/dL [facility] LABS Urea Nitrogen 31 (H) 7 - 30 [facility] mg/dL [facility] LABS Creatinine 1.97 (H) 0.66 - [facility] 1.25 mg/dL [facility] LABS GFR Estimate 35 (L) >60 [facility] mL/min/1.7 [facility] m2 CAMPUS LABS GFR Estimate If 42 (L) >60 [facility] Black mL/min/1.7 [place] [address] CAMPUS LABS Calcium 9.1 8.5 - 10.4 [facility] mg/dL [facility] LABS Specimen Anatomical Collection Method Collection Time Receive d Time (Source) Location / / Volume Laterality Blood specimen 02/11/2014 7:40 AM 014 7:41 (specimen) CDT AM CDT Kaitlynn Leon MD LAB - BLOOD ORDERABLES Performing Organization Address City/State/ZIP Code Phon e Number [phone] [place], [place] [address] [facility] LABS documented in this encounter Visit Diagnoses Diagnosis Kidney replaced by transplant - Primary documented in this encounter Care Teams Tallow Maker Relationship Specialty Start Date End Date Momo Forbes PCP - General Family Practice 01/02/14 [facility] [address] [place] [address] Ingrid Santana, RN Registered Nurse Transplant 02/10/12 documented as of this encounter
--- OUTSIDE RECORDS SUMMARY | 2022-07-07 10:52 | XMS_ITS | Encounter Summary ---
:1950 Author Organization [place] Address [address] [place] [address]. [place] [address] Care Team Providers Name Role Phone Ingrid Santana RN Unavailable Unavailable Momo Forbes Primary Care Provider Reason for Visit Reason Onset Date Comments Refill Request 02/11/2014 Encounter Details Date Type Department Care Team Description 02/11/2014 Refill Nephrology Isa Ly RN Refill Request 2nd Floor, Clinic 2A [place] [phone] Social History Tobacco Use Types Packs/Day [...] documented in this encounter Care Teams Agricultural Equipment Sales Manager Relationship Specialty Start Date End Date Momo Forbes PCP - General Family Practice 01/02/14 [facility] [address] [place] [address] Ingrid Santana RN Registered Nurse Transplant 02/10/12 documented as of this encounter
--- OUTSIDE RECORDS SUMMARY | 2022-07-07 10:53 | XMS_ITS | Encounter Summary ---
:1950 Author Organization [place] Address [address] [place] [address]. [place] [address] Care Team Providers Name Role Phone Ingrid Santana RN Unavailable Unavailable Momo Forbes Primary Care Provider Reason for Visit Reason Comments Transplant Donor culture results Encounter Details Date Type Department Care Team Description 02/04/2014 Documentation Only The Transplant Gladis Yeboah, Transplant (Donor 2nd Floor, Clinic 2A RN culture results) [address] [phone] Social History Tobacco Use Types Packs/Day Years [...] and urine cultures have been uploaded into [facility]. Notification sent to Dr. Rust and Dr. Hernandes. documented in this encounter Plan of Treatment Not on filedocumented as of this encounter Visit Diagnoses Not on filedocumented in this encounter Care Teams Delivery Mgr Relationship Specialty Start Date End Date Momo Forbes PCP - General Family Practice 01/02/14 [facility] [address] [place] [address] Ingrid Santana, RN Registered Nurse Transplant 02/10/12 documented as of this encounter
--- OUTSIDE RECORDS SUMMARY | 2022-07-07 10:53 | XMS_ITS | Encounter Summary ---
:1950 Author Organization [place] Address [facility] [place] [address] Care Team Providers Name Role Phone Ingrid Santana RN Unavailable Unavailable Momo Forbes Primary Care Provider Encounter Details Date Type Department Care Team Description 02/02/2014 Abstract The Transplant [facility] 2nd Floor, Clinic [address] [phone] Social History Tobacco Use [...] filedocumented in this encounter Care Teams Senior Hr Manager Relationship Specialty Start Date End Date Momo Forbes PCP - General Family Practice 01/02/14 [facility] [address] [place] [address] Ingrid Santana, BOGDAN Registered Nurse Transplant 02/10/12 documented as of this encounter
--- OUTSIDE RECORDS SUMMARY | 2022-07-07 10:53 | XMS_ITS | Encounter Summary ---
:1950 Author Organization [place] Address [address] [place] [address] Care Team Providers Name Role Phone Ingrid Santana RN Unavailable Unavailable Momo Forbes Primary Care Provider Encounter Details Date Type Department Care Team Description 02/02/2014 Results Only LABORATORY RESULTS Migel Merchant MD [address] [place] [address] [address] [place], [place] [address] (Wo rk) Social History Tobacco Use Types [...] Phon e Number [facility] Immunology/Histocompatabil [place], [place] [address] [facility] [address] [facility] [address] Building, Room 3-580 HISTOTRAC documented in this encounter Visit Diagnoses Not on filedocumented in this encounter Care Teams Apron Operator Relationship Specialty Start Date End Date Momo Forbes PCP - General Family Practice 01/02/14 [facility] [address] [place] [address] Ingrid Santana, RN Registered Nurse Transplant 02/10/12 documented as of this encounter
--- OUTSIDE RECORDS SUMMARY | 2022-07-07 10:53 | XMS_ITS | Encounter Summary ---
:1950 Author Organization [facility] Address [address] [place] [address] Care Team Providers Name Role Phone Ingrid Santana RN Unavailable Unavailable Momo Forbes Primary Care Provider Reason for Referral Home Health Therapies & Aides Specialty Diagnoses / Procedures Referred By Contact Refer red To Contact Adeline Diaz MD [place] [phone] 5 Referral ID Status Reason Start Date Expiration Date Visits Requ ested Visits Authorized ome Health Therapies & Aides Specialty Diagnoses / Procedures Referred By Contact Gary phelps To Contact Adeline Diaz MD [address] [address] 5 Referral ID Status Reason Start Date Expiration Date Visits Requ ested Visits Authorized ome Health Therapies & Aides Specialty Diagnoses / Procedures Referred By Contact Gary phelps To Contact [facility] [address] [place], [place] [phone] Referral ID Status Reason Start Date Expiration Date Visits Requ ested Visits Authorized Reason for Visit Auth/Cert - Closed Specialty Diagnoses / Procedures Referred By Contact Gary phelps To Contact Med Surg Diagnoses end stage renal disease dialysis End stage renal failure on dialysis Renal Failure Uu U7a Procedures TRANSPLANT KIDNEY RECIPIENT DONOR [address] [place] [address] Phone: Referral ID Status Reason Start Date Expiration Date Visits Requ ested Visits Authorized [id number] Closed 02/04/2014 08/03/2014 1 1 Encounter Details Date Type Department Care Team Description 02/02/2014 [facility] [address] [place] [address] S/P kidney transplant (Primary Dx); 02/08/2014 [facility] [address] [place]w Rust MD [address] [place] [address] Atrial fibrillation (H) Bank [address] [place] [address] Social History Tobacco Use Types [...] Physician Discharge Summary Patient ID: Diego Guthrie [id number] 63 year old 1950 Admit date: 02/02/2014 [...] Take 1 tablet by mouth daily. B eqenxua-N-tkahr acid (NEPHROCAPS) 1 MG capsule Take 1 [...] in [facility]) which is located on the [...] of these appointments you will meetwith a marketing traffic coordinator and meet your coordinator volunteer services. Your nurse will also be in communication with your surgeon and marketing traffic coordinator as needed. The direct number to the [facility] is [phone]. In the [facility] [...] be removed in 4-6 weeks. If a dental scheduler does not contact you for this, please contact your coordinator volunteer services. If you have modesta in place, they will be removed in 3 weeks after operation. Notify your coordinator if you have pain over your kidney, fever greater than 101.5F, or decreased urine output. Notify your coordinator immediately if you are ever unable to take your immunosuppressive medications for any reason. 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 High protein [...] >2. He can be seen by any law clerk in the outpatient setting for coordination. Continue metoprolol 25 po bid until he is r e-evaluated. We did attempt inpatient REFUGIO guided cardioversion, but the patient developed significant bleeding while on heparin. José Miguel Alvarez M.D. Laser Beam Cutter Joseph Quintana MD - 02/08/2014 12:35 PM [...] Dr. Quintana. Sina Robison MD Nephrology Fellow [phone] Attestation: This patient has been seen and [...] Ramires RN - 02/07/2014 2:25 PM CDT Hydropulper D: Diego Guthrie 63 year old male POD #5 s/p DDKT for ESRD 2/[address] Diaz note today. Per Dr Diaz, pt will most likely be ready for d/c to home tomorrow and will return to [facility] for 5 days at 0700. [...] him. Pt does not know where the [facility] or transplant clinic is, I told him and he replied I will find it. Pt does not care which [facility] agency will follow him--There are only 2 to choose from, so I chose the Local [facility] [phone]/ --I called and left a message with Estrella Fletcher and I fax'd his records tothem--pt will need start of care approx Thursday 02/15. Pt is new on warfarin and I called his PCP's office and they have INR nurses Tuesday-Tuesday their fax # is [phone] (when N visits are completed --pt will call main clinic # to schedule INR draws). 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 I verified his address and phone #(is his cell) on the facesheet. Pt has not met his OP health care marketing specialist: Leandro Kahn, yet--I sent Leandro an in [...] Dr. Quintana. Sina Robison MD Nephrology Fellow [phone] Attestation: This patient has been seen and [...] assistance Medical Decision Making: Medium Subsequent visit 24515 (moderate level decision making) PATO/Fellow/Resident Provider: Adeline [...] reflected in the note and orders. . Inud Calixto MD - 02/07/2014 4:20 AM CDT [...] Rodriguez MD - 02/06/2014 4:25 PM CDT [facility] Cardiology Progress Note I have [...] Dr. Quintana. Sina Robison MD Nephrology Fellow [phone] Attestation: This patient has been seen and [...] Bowel sounds. Slight tenderness over graft incision. MRAGARET drain in place. Extremities - Left BKA. [...] Dr. Quintana. Sina Robison MD Nephrology Fellow [phone] Attestation: This patient has been seen and [...] REPLACEMENT ONLY ??? insulin (regular) Stopped (02/05/14 8117) Shiva Kahn RN - 02/05/2014 4:47 PM CDT COMBAT SYSTEMS OFFICER NOTE I met with the patient and his yesterday at [facility] PCU-6B (telemetry unit) to discuss transition from inpatient to outpatient care following kidney translantation. 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 Joseph Rodriguez MD - 02/05/2014 11:16 AM CDT [facility] Cardiology Progress Note I have [...] kidney on 02/02/2014. Pt lives alone in [facility] though reports that his girlfriend in in the process of moving in with him. Pt girlfriend, Tete, will be present when pt returns home but she works time signal wirer. Pt was on dialysis for 2 1/2 years prior to transplant. Pt works independently but reports that he currently has no income coming in. Pt has primary insurancethrough Medicare and Secondary insurance through [employer]. Pt has no co-pays for his immunosuppressants and a high out of pocket cost for DANILO Salcido to look into grants for pt for [employer]. I: Met with pt to introduce this journalists and other writers and explain sw role and services available while inpatient in the hospital. Asked if pt had any questions or concerns and completed an assessment of psychosocialneeds post transplant. Provided education about expectations and requirements post discharge like fol low up in the [facility]. Pt is unsure yet if [...] needs arise prior to discharge. CECY Kearns, VP DIRECTOR OF FINANCE Indu Calixto MD - 02/05/2014 1:50 AM [...] Adds Type of Visit Initial PT Evaluation Fancy Packer Fancy Packer Present no Language Polish Living Environment (R) Lives With alone Living Arrangements ([facility]) Home Accessibility no concerns Number of [...] up when pt is available. CECY Kearns, [facility] [phone] phone [phone] pager Joseph Quintana MD - 02/04/2014 11:51 [...] Dr. Quintana. Sina Robison MD Nephrology Fellow [phone] Attestation: This patient has been seen and [...] for this basename: PTHI, in the last 64969 hours IRON STUDIES No results found for this basename: IRON, FEB, IRONSAT, THEE, in the last 95691 hours Imaging: All imaging studies reviewed by [...] or equal to 12.0 mlU/mL. Adeline Diaz [phone] Attestation: The patient has been seen and [...] donor kidney transplant, with stent on 02/02/14. CERTIFIED BREASTFEEDING EDUCATOR donor. Graft function:uncertain, Cr slightly up. Slow [...] . Medical Decision Making: Medium Subsequent visit 81905 (moderate level decision making) PATO/Fellow/Resident Provider: Caitlin [...] note and orders. Migel Merchant MD, PhD home office claims examiner Abdominal Organ Transplantation Carmelita Rosario, RN - 02/03/2014 9:38 AM CDT Patient removed from the UNOS waitlist after donor kidney transplant. UNOS ID is [id number]. Rafaela Cardona - 02/03/2014 9:17 AM CDT [...] followed general diet. 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 CURRENT NUTRITION ORDERS - [...] DDKT ASSESSED NUTRITION NEEDS: Estimated Energy Needs: 4923-2598+ kcals (25-30+ Kcal/Kg) Justification: maintenance post-transplant Estimated [...] (6- 8 weeks). 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 Implementation Nutrition education: Provided instruction on post-transplant diet with discussion regarding protein sources and high protein needs in acute post-tx phase. 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 Discussed [...] adjustment. Rafaela Cardona RD, LD Weekend Coverage [phone] Carla, Jose Galarza MD - 02/03/2014 4:57 [...] Doing well postoperatively. Pain: Controlled by Dilaudid LEGAL BILLING ANALYST Diet: NPO tonight Volume Status: Borderline low UOP, continue MIVF, 0.9 % NS 500 cc bolus given for low UOP, CVP not accurate, systolic in 100-110 Recheck hemoglobin and potassium normal. Rest of the plan per primary team. Will continue to follow. Jose Aguirre MD PGY-1.................02/03/2014 Surgery Cross Cover Pager:[phone] documented in this encounter H&P Notes Caitlin [...] 1 tablet by mouth daily. ??? 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 Kidney bx [...] note and orders. Migel Merchant MD, PhD home office claims examiner Abdominal Organ Transplantation documented in this encounter Consult Notes Joseph Rodriguez MD - 02/04/2014 11:03 AM CDTAssociated Order(s): CARDIOLOGY IP CONSULT [facility] CARDIOLOGY CONSULT SERVICE INITIAL CONSULT NOTE [...] 1 tablet by mouth daily. ??? 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 José Miguel Alvarez MD Laser Beam Cutter Pager: [phone] February 04, 2014 Kaitlynn Leon MD - 02/03/2014 9:30 AM CDT Nephrology Initial Consult February 03, 2014 Diego uGthrie Date of : 1950 Date of Admission:02/02/2014 Primary care provider: Momo Forbes Requesting physician: Migel Merchant MD ASSESSMENT AND RECOMMENDATIONS: 1. DDKT - CERTIFIED BREASTFEEDING EDUCATOR -59 yo women; slow graft function-no immediate need for dialysis , but may require tomorrow if UO does not crop picker. We will monitor Induction with Thymo/Cellcept [...] h/o type 2 Dm, who received DDKT (CERTIFIED BREASTFEEDING EDUCATOR) on 02/02/2014 donor kidney had severe atherosclerotic [...] ??? Cataract iol, rt/lt both eyes MEDICATIONS: HEATING AND COOLING TECHNICIAN Meds Prior to Admission medications Medication Sig Last Dose Taking? Auth Provider Calcium Carbonate-Vitamin D (CALCIUM + D PO) Take by mouth daily. Reported, Patient lisinopril (PRINIVIL,ZESTRIL) 40 MG tablet Take 40 mg by mouth 2 times daily. Reported, Patient METOPROLOL SUCCINATE PO Take by mouth daily. Reported, Patient aspirin 81 MG tablet Take 1 tablet by mouth daily. Reported, Patient B iazgtfw-G-sullu acid (NEPHROCAPS) 1 MG capsule Take 1 [...] Intravenous Central line Once ??? HYDROmorphone Intravenous LEGAL BILLING ANALYST Infusion Meds ??? 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 Alvin Diego Cardiovascular Disease Fellow [phone] Patient seen and examined by me with [...] Cullen MD, PhD Jarad Cullen MD, PhD [phone] documented in this encounter Nursing Notes Gretta Mary RN - 02/02/2014 11:[address] Owens with Transplant Surgery notified of stat lab results. Magnesium replaced. Dr. Blank with Anesthesia reviewed chest x-ray. CVC not deep enough to give accurate CVP readings, however all lumens aspirate blood well. Patient is ok to transfer to unit 6B per [facility]. documented in this encounter Miscellaneous Notes Plan of Care - Amanda Hernandez RN - 02/08/2014 3:44 PM CDT Problem: IP GENERAL POC-ADULT,OB,BEHAVIORAL FVCPM Goal: Individualization/Patient-Specific Goal (Adult,OB,Behavioral The patient and/or their labor representative will achieve their patient-specific goals related [...] Card updated. Report called to Saima in [facility]. Left facility accompanied by s.o at 1600. Plan of Care - Amanda Hernandez RN - 02/08/2014 2:13 PM CDT Problem: IP GENERAL POC-ADULT,OB,BEHAVIORAL FVCPM Goal: Individualization/Patient-Specific Goal (Adult,OB,Behavioral The patient and/or their labor representative will achieve their patient-specific goals related [...] Individualization/Patient-Specific Goal (Adult,OB,Behavioral The patient and/or their labor representative will achieve their patient-specific goals related [...] Individualization/Patient-Specific Goal (Adult,OB,Behavioral The patient and/or their labor representative will achieve their patient-specific goals related [...] Diet recommendations post-transplant: Heart healthy dietary habits halfway (low saturated/trans fat, low sodium). High protein diet x 8 weeks. Practice food safety precautions - no fish/seafood x 3 weeks. Inez Luevano MS, RD, LD Pager [phone] Pharmacy-Immunosuppression Monitoring - mE Vasquez, [facility] - 02/07/2014 9:06 AM CDT Tacrolimus [...] Pharm.D., [facility] Pager [phone] Plan of Care - Annmarie Colby RN - 02/07/2014 5:11 AM CDT Problem: IP GENERAL POC-ADULT,OB,BEHAVIORAL FVCPM Goal: Individualization/Patient-Specific Goal (Adult,OB,Behavioral The patient and/or their labor representative will achieve their patient-specific goals related [...] Individualization/Patient-Specific Goal (Adult,OB,Behavioral The patient and/or their labor representative will achieve their patient-specific goals related [...] increased fluid intake, urine color is becoming child care associate teacher( tea color/bloody- >dark sy/tea color). Incisional [...] Physical Therapy Goals The patient and/or their labor representative will achieve their patient-specific goals related [...] Physical Therapy Goals The patient and/or their labor representative will achieve their patient-specific goals related [...] Individualization/Patient-Specific Goal (Adult,OB,Behavioral The patient and/or their labor representative will achieve their patient-specific goals related [...] Individualization/Patient-Specific Goal (Adult,OB,Behavioral The patient and/or their labor representative will achieve their patient-specific goals related [...] Physical Therapy Goals The patient and/or their labor representative will achieve their patient-specific goals related [...] at this time. Pharmacy - Cayetano Olivera [facility] - 02/05/2014 12:26 PM CDT Visited 02/05/2014 in hospital room prior to discharge to review medications, review discharge process and review specialty pharmacy program. Med Review: Reviewed patient's medications and medical conditions. Patient would like to use [facility] to manage all medications. Medcard: [...] Specialty Pharmacy review: Discussed the benefits of [facility] and Diego has enrolled. Also gave him supplies (blood pressure cuff, thermometer, and pill box) Other concerns: No other concerns at this time. No further questions for this pharmacist. Inez Cox, Student Pharmacist [employer] Machine Helper [facility] [address] [place] [address] Cayetano Olivera, Pharmacist [facility] [phone] Pharmacy-Anticoagulation Service - Teresa Wright RP - [...] Individualization/Patient-Specific Goal (Adult,OB,Behavioral The patient and/or their labor representative will achieve their patient-specific goals related [...] melonie hard time making full sentences. When journalists and other writers came on shift at 8pm patient was [...] Individualization/Patient-Specific Goal (Adult,OB,Behavioral The patient and/or their labor representative will achieve their patient-specific goals related [...] Physical Therapy Goals The patient and/or their labor representative will achieve their patient-specific goals related [...] by friend. Pt transferred to chair, VSS, playground monitor on, oriented to room. Pharmacy-Admission Medication History - Teresa Wright [facility] - 02/04/2014 11:54 AM CDT Admission medication history interview status for the 02/02/2014 admission is complete. See [facility] admission navigator for allergy information, prior to admission medications and immunization status. Medication history interview sources (including written lists, pill bottles, clinic record):Patient Medication history source reliability:Good Primary pharmacy:[facility] phone number: [phone] Changes made to HEATING AND COOLING TECHNICIAN medication list (reason) Added: Vitamin D 1,000 [...] at Unknown time Yes Reported, Patient B xyvcmtl-M-hsynb acid (NEPHROCAPS) 1 MG capsule Take 1 [...] Individualization/Patient-Specific Goal (Adult,OB,Behavioral The patient and/or their labor representative will achieve their patient-specific goals related [...] Physical Therapy Goals The patient and/or their labor representative will achieve their patient-specific goals related to the plan of care. The patient-specific goals include: PT 7A: HOLD for AM per RN - pt with a-fib this morning. Plan of Care - Alisson Diane RN - 02/04/2014 6:45 AM CDT Problem: IP GENERAL POC-ADULT,OB,BEHAVIORAL FVCPM Goal: Individualization/Patient-Specific Goal (Adult,OB,Behavioral The patient and/or their labor representative will achieve their patient-specific goals related [...] Individualization/Patient-Specific Goal (Adult,OB,Behavioral The patient and/or their labor representative will achieve their patient-specific goals related [...] Individualization/Patient-Specific Goal (Adult,OB,Behavioral The patient and/or their labor representative will achieve their patient-specific goals related to the plan of care. The patient-specific goals include: 1. Pt will remain hemodynamically stable 2. Pt will have adequate urine output 3. Pt will be free of falls. RD Patient will verbalize understanding of 3 important aspects of post-transplant diet guidelines. PO intake >50% meals TID once diet adv. Report taken from [facility] on 6B; patient transferred to from 6B via wheelchair around 1500. Patientsettled into room, oriented to floor/room and call light. VS taken. Orders released. Continue ordersas written and notify MD with any concerns. Plan of Care - Sofie Christianson RN - 02/03/2014 2:59 PM CDT Problem: IP GENERAL POC-ADULT,OB,BEHAVIORAL FVCPM Goal: Plan of Care Review (Adult,OB,Behavioral) The patient and/or their labor representative will communicate an understanding of their [...] algorithm 2, 1 unit now. Pt still [id number] NC to maintain sats above 90 % [...] Individualization/Patient-Specific Goal (Adult,OB,Behavioral The patient and/or their labor representative will achieve their patient-specific goals related [...] Intermittent sharp R lower abd pain. Dilaudid LEGAL BILLING ANALYST encouraged, increased to 0.2/10/1.2. R lower abd [...] 0200 made 20cc/hr, at 0300 made 30cc/hr. [place]/red tinged urine. MIVF @ 125/hr. VSS. HR 70s, BPs 100s-120s/60s. No new orders at this time. Will continue to monitor. Plan of Care - Tasia Andrade RN - 02/03/2014 12:00 AM CDT Pt arrived to 6B from PACU, s/p DDKT. A&O x3-4. VSS. [place]/red urine output. Small amt drainage on abd [...] patient received anorgan offer for a Donor CERTIFIED BREASTFEEDING EDUCATOR (expanded criteria donor) kidney transplant. After discussing [...] The UNOS number of the donor is [id number]. The crossmatch was done prospectively; and the [...] reconstruction. FACULTY SURGEON: Migel Merchant M.D., Ph.D. FELLOW/AIR DUCT MECHANIC SURGEON: Caitlin Owens MD fellow ANESTHESIA: None VERIFICATION: Prior to incision, I verified the donor ABO and recipient ABO. After the donor organ arrived to the operating room and prior to anastamosis, I visually verified that the donor identification, blood type, and other vital data were compatible with the recipient. FINDINGS: Donor type: CERTIFIED BREASTFEEDING EDUCATOR (expanded criteria donor) Organ: kidney Graft Injury: [...] Individualization/Patient-Specific Goal (Adult,OB,Behavioral The patient and/or their labor representative will achieve their patient-specific goals related [...] Individualization/Patient-Specific Goal (Adult,OB,Behavioral The patient and/or their labor representative will achieve their patient-specific goals related [...] LARES - BEAKER POCT Performing Organization Address [facility] Phon e Number FV POINT OF CARE [...] LARES - BEAKER POCT Performing Organization Address [facility] Phon e Number FV POINT OF CARE TEST, GLUCOSE POINT OF CARE TEST, GLUCOSE Tacrolimus level (02/08/2014 6:42 AM CDT) [facility] gist Method Time Signature Tacrolimus Not Provided [facility] Last Dose [facility] Tacrolimus 10.0 5.0 - [facility] Level 15.0 ug/L [facility] Comment: Tacrolimus Reference [...] ORDERABLES Performing Organization Address City/[facility] Code Phon e Number [facility] [address] [place] [address] [facility] LAB[facility] (ABNORMAL) INR (02/08/2014 6:42 AM CDT) P athologist Signature INR 1.28 (H) 0.86 - 1.14 [facility] Specimen Anatomical Collection Method Collection Time Receive d Time (Source) Location / / Volume Laterality Blood specimen 02/08/2014 6:42 AM 014 6:43 (specimen) CDT AM CDT Omaira Chavez PA-C LAB - BLOOD ORDERABLES Performing Organization Address City/State/ZIP Code Phon e Number [facility] [address] LABS (ABNORMAL) Basic metabolic panel (02/08/2014 6:42 AM CDT) Patholo gist Method Time Signature Sodium 144 133 - 144 [facility] mmol/L [facility] Potassium 3.9 3.4 - 5.3 [facility] mmol/L [facility] Chloride 110 (H) 94 - 109 [facility] mmol/L [facility] Carbon Dioxide 25 20 - 32 [facility] mmol/L [facility] Anion Gap 8 6 - 17 [facility] mmol/L [facility] Glucose 144 (H) 60 - 99 [facility] mg/dL [facility] Urea Nitrogen 66 (H) 7 - 30 [facility] mg/dL [facility] Creatinine 2.38 (H) 0.66 - [facility] 1.25 mg/dL [facility] LABS GFR Estimate 28 (L) >60 [facility] mL/min/1.7 [place] m2 CAMPUS LABS GFR Estimate If 34 (L) >60 [facility] Black mL/min/1.7 [place] [address] CAMPUS LABS Calcium 9.4 8.5 - 10.4 [facility] mg/dL [facility] LABS Specimen Anatomical Collection Method Collection Time Receive d Time (Source) Location / / Volume Laterality Blood specimen 02/08/2014 6:42 AM 014 6:43 (specimen) CDT AM CDT Omaira Chavez PA-C LAB - BLOOD ORDERABLES Performing Organization Address City/State/ZIP Code Phon e Number [facility] [address] [place], [place] [id number] [place] [address] LABS Phosphorus (02/08/2014 6:42 AM CDT) P athologist Signature Phosphorus 2.5 2.5 - 4.5 [facility] mg/dL CAMPUS LABS Specimen Anatomical Collection Method Collection Time Receive d Time (Source) Location / / Volume Laterality Blood specimen 02/08/2014 6:42 AM 014 6:43 (specimen) CDT AM CDT Omaira Chavez PA-C LAB - BLOOD ORDERABLES Performing Organization Address City/State/ZIP Code Phon e Number [facility] [address] LABS Magnesium (02/08/2014 6:42 AM CDT) P athologist Signature Magnesium 2.2 1.6 - 2.3 [facility] mg/dL CAMPUS LABS Specimen Anatomical Collection Method Collection Time Receive d Time (Source) Location / / Volume Laterality Blood specimen 02/08/2014 6:42 AM 014 6:43 (specimen) CDT AM CDT Omaira Chavez PA-C LAB - BLOOD ORDERABLES Performing Organization Address City/State/ZIP Code Phon e Number [facility] [address] [place] [address] [facility] LABS (ABNORMAL) CBC with platelets differential (02/08/2014 6:42 AM CDT) Patholo gist Method Time Signature WBC 4.8 4.0 - [facility] 11.0 [place] 10e9/L [place] LABS RBC Count 2.56 (L) 4.4 - 5.9 [facility] 10e12/L [facility] LABS Hemoglobin 7.8 (L) 13.3 - [facility] 17.7 g/dL [facility] LABS Hematocrit 23.5 (L) 40.0 - [facility] 53.0 % [facility] LABS MCV 92 78 - 100 [facility] fl [facility] LABS MCH 30.5 26.5 - [facility] 33.0 pg [facility] LABS MCHC 33.2 31.5 - [facility] 36.5 g/dL [facility] LABS RDW 14.5 10.0 - [facility] 15.0 % [facility] LABS Platelet Count 70 (L) 150 - 450 [facility] 10e9/L [facility] LABS Diff Method Automated [facility] Method [facility] LABS % Neutrophils 86.3 % [facility] LABS % Lymphocytes 3.1 % [facility] LABS % Monocytes 9.4 % [facility] LABS % Eosinophils 1.0 % [facility] LABS % Basophils 0.0 % [facility] LABS % Immature 0.2 % [facility] Granulocytes [facility] LABS Absolute 4.1 1.6 - 8.3 [facility] Neutrophil 10e9/L [facility] LABS Absolute 0.2 (L) 0.8 - 5.3 [facility] Lymphocytes 10e9/L [facility] LABS Absolute 0.5 0.0 - 1.3 [facility] Monocytes 10e9/L [facility] LABS Absolute 0.1 0.0 - 0.7 [facility] Eosinophils 10e9/L [facility] LABS Absolute 0.0 0.0 - 0.2 [facility] Basophils 10e9/L [place] [facility] LABS Abs Immature 0.0 0 - 0.4 [facility] Granulocytes 10e9/L [facility] LABS Specimen Anatomical Collection Method Collection Time Receive d Time (Source) Location / / Volume Laterality Blood specimen 02/08/2014 6:42 AM 014 6:43 (specimen) CDT AM CDT Omaira Chavez PA-C LAB - BLOOD ORDERABLES Performing Organization Address City/State/ZIP Code Phon e Number [address] [address] [facility] LABS (ABNORMAL) Glucose by meter [...] LARES - ROBERT POCT Performing Organization Address City/[facility]/ZIP Code Phon e Number [facility] [...] Signature INR 1.25 (H) 0.86 - 1.14 [facility] LABS Specimen Anatomical Collection Method Collection Time Receive d Time (Source) Location / / Volume Laterality Blood specimen 02/07/2014 4:23 AM 014 4:24 (specimen) CDT AM CDT Omaira Chavez PA-C LAB - BLOOD ORDERABLES Performing Organization Address City/State/ZIP Code Phon e Number [address] LABS (ABNORMAL) Basic metabolic panel (02/07/2014 4:23 AM CDT) Patholo gist Method Time Signature Sodium 143 133 - 144 [facility] mmol/L [facility] LABS Potassium 4.1 3.4 - 5.3 [facility] mmol/L [facility] LABS Chloride 109 94 - 109 [facility] mmol/L [facility] LABS Carbon Dioxide 24 20 - 32 [facility] mmol/L [facility] LABS Anion Gap 10 6 - 17 [facility] mmol/L [facility] LABS Glucose 185 (H) 60 - 99 [facility] mg/dL [facility] LABS Urea Nitrogen 77 (H) 7 - 30 [facility] mg/dL [facility] LABS Creatinine 3.02 (H) 0.66 - [facility] 1.25 mg/dL [facility] LABS GFR Estimate 21 (L) >60 [facility] mL/min/1.7 [place] m2 CAMPUS LABS GFR Estimate If 26 (L) >60 [facility] Black mL/min/1.7 [place] [address] CAMPUS LABS Calcium 9.3 8.5 - 10.4 [facility] mg/dL [facility] LABS Specimen Anatomical Collection Method Collection Time Receive d Time (Source) Location / / Volume Laterality Blood specimen 02/07/2014 4:23 AM 014 4:24 (specimen) CDT AM CDT Omaira Chavez PA-C LAB - BLOOD ORDERABLES Performing Organization Address City/[facility]/ZIP Code Phon e Number [address] LABS Phosphorus (02/07/2014 4:23 AM CDT) [...] Code Phon e Number [facility] [address] [facility] LABS Magnesium (02/07/2014 4:23 AM CDT) P athologist Signature Magnesium 2.1 1.6 - 2.3 [facility] mg/dL [place] LABS Specimen Anatomical Collection Method Collection Time Receive d Time (Source) Location / / Volume Laterality Blood specimen 02/07/2014 4:23 AM 014 4:24 (specimen) CDT AM CDT Omaira Chavez PA-C LAB - BLOOD ORDERABLES Performing Organization Address City/State/ZIP Code Phon e Number [facility] [address] [place] [address] [facility] LABS (ABNORMAL) CBC with platelets differential (02/07/2014 4:23 AM CDT) Patholo gist Method Time Signature WBC 2.7 (L) 4.0 - [facility] 11.0 [facility] 10e9/L [place] LABS RBC Count 2.80 (L) 4.4 - 5.9 [facility] 10e12/L [facility] LABS Hemoglobin 8.5 (L) 13.3 - [facility] 17.7 g/dL [facility] LABS Hematocrit 25.8 (L) 40.0 - [facility] 53.0 % [facility] LABS MCV 92 78 - 100 [facility] fl [facility] LABS MCH 30.4 26.5 - [facility] 33.0 pg [facility] LABS MCHC 32.9 31.5 - [facility] 36.5 g/dL [facility] LABS RDW 14.5 10.0 - [facility] 15.0 % [facility] LABS Platelet Count 77 (L) 150 - 450 [facility] 10e9/L [facility] LABS Diff Method Automated [facility] Method [facility] LABS % Neutrophils 87.5 % [facility] LABS % Lymphocytes 3.8 % [facility] LABS % Monocytes 8.7 % [facility] LABS % Eosinophils 0.0 % [facility] LABS % Basophils 0.0 % [facility] LABS % Immature 0.0 % [facility] Granulocytes [facility] LABS Absolute 2.3 1.6 - 8.3 [facility] Neutrophil 10e9/L [facility] LABS Absolute 0.1 (L) 0.8 - 5.3 [facility] Lymphocytes 10e9/L [facility] LABS Absolute 0.2 0.0 - 1.3 [facility] Monocytes 10e9/L [facility] LABS Absolute 0.0 0.0 - 0.7 [facility] Eosinophils 10e9/L UNIVERSITY CAMPUS LABS Absolute 0.0 0.0 - 0.2 [facility] Basophils 10e9/L [place] [facility] LABS Abs Immature 0.0 0 - 0.4 [facility] Granulocytes 10e9/L [facility] LABS Specimen Anatomical Collection Method Collection Time Receive d Time (Source) Location / / Volume Laterality Blood specimen 02/07/2014 4:23 AM 014 4:24 (specimen) CDT AM CDT Omaira Chavez PA-C LAB - BLOOD ORDERABLES Performing Organization Address City/[facility]/ZIP Code Phon e Number [address] LABS (ABNORMAL) Hemoglobin A1c (02/07/2014 4:23 AM CDT) Analysis Performed At Patho logist Time Signature Hemoglobin A1C 6.1 (H) 4.3 - 6.0 [facility] LABS Specimen Anatomical Collection Method Collection Time Receive d Time (Source) Location / / Volume Laterality Blood specimen 02/07/2014 4:23 AM 014 4:24 (specimen) CDT AM CDT Omaira Chavez PA-C LAB - BLOOD ORDERABLES Performing Organization Address City/State/ZIP Code Phon e Number [facility] [address] LABS (ABNORMAL) Glucose by meter (02/06/2014 [...] - BEAJ POCT Performing Organization Address [facility] Phon e Number [facility] POINT OF CARE TEST, GLUCOSE POINT OF CARE TEST, GLUCOSE (ABNORMAL) Hemoglobin (02/06/2014 4:59 PM CDT) P athologist Signature Hemoglobin 8.8 (L) 13.3 - 17.7 [facility] g/dL [place] LABS Specimen Anatomical Collection Method Collection Time Receive d Time (Source) Location / / Volume Laterality Blood specimen 02/06/2014 4:59 PM 014 5:12 (specimen) CDT PM CDT Omaira Chavez PA-C LAB - BLOOD ORDERABLES Performing Organization Address City/[facility]/ZIP Code Phon e Number [address] [address] [facility] LABS (ABNORMAL) Glucose by meter (02/06/2014 12:01 PM CDT) P athologist Signature Glucose 181 (H) 60 - 99 POINT OF CARE mg/dL TEST, GLUCOSE Specimen Anatomical Collection Method Collection Time Receive d Time (Source) Location / / Volume Laterality 02/06/2014 12:01 02/06/2014 PM CDT 12:05 PM CDT Migel Merchant MD LAB - BEAKER POCT Performing Organization Address City/[facility]/ZIP Code Phon e Number [facility] POINT OF CARE TEST, GLUCOSE POINT OF CARE TEST, GLUCOSE (ABNORMAL) Partial thromboplastin time (02/06/2014 5:57 AM CDT) athologist Signature PTT 154 (HH) 22 - 37 sec [facility] LABS Comment: Critical Value called to and read back Whitney Poon RN AT 0642. PW Specimen Anatomical Collection Method Collection Time Receive d Time (Source) Location / / Volume Laterality 02/06/2014 5:57 AM 4 6:03 CDT AM CDT Adeline Diaz MD LAB - BLOOD ORDERABLES Performing Organization Address City/[facility]/ZIP Code Phon e Number [facility] [address] LABS Heparin Xa (10a) Level (02/06/2014 5:57 AM CDT) athologist Signature Heparin 10A 0.92 IU/mL [facility] LABS Comment: Therapeutic Range: ?? UFH: ?? [...] Code Phon e Number [facility] [address] LABS (ABNORMAL) INR (02/06/2014 5:57 AM CDT) athologist Signature INR 1.32 (H) 0.86 - 1.14 [facility] Specimen Anatomical Collection Method Collection Time Receive d Time (Source) Location / / Volume Laterality Blood specimen 02/06/2014 5:57 AM 014 6:03 (specimen) CDT AM CDT Omaira Chavez PA-C LAB - BLOOD ORDERABLES Performing Organization Address City/[facility]/ZIP Code Phon e Number [facility] [address] LABS (ABNORMAL) Basic metabolic panel (02/06/2014 5:57 AM CDT) [facility] Method Time Signature Sodium 142 133 - 144 [facility] mmol/L [facility] LABS Potassium 4.7 3.4 - 5.3 [facility] mmol/L [facility] LABS Chloride 106 94 - 109 [facility] mmol/L [facility] LABS Carbon Dioxide 28 20 - 32 [facility] mmol/L [facility] LABS Anion Gap 8 6 - 17 [facility] mmol/L [facility] LABS Glucose 196 (H) 60 - 99 [facility] mg/dL [facility] LABS Urea Nitrogen 71 (H) 7 - 30 [facility] mg/dL [facility] LABS Creatinine 3.96 (H) 0.66 - [facility] 1.25 mg/dL [facility] LABS GFR Estimate 15 (L) >60 [facility] mL/min/1.7 [place] m2 CAMPUS LABS GFR Estimate If 19 (L) >60 [facility] Black mL/min/1.[address] LABS Calcium 9.4 8.5 - 10.4 [facility] mg/dL [facility] LABS Specimen Anatomical Collection Method Collection Time Receive d Time (Source) Location / / Volume Laterality Blood specimen 02/06/2014 5:57 AM 014 6:03 (specimen) CDT AM CDT Omaira Chavez PA-C LAB - BLOOD ORDERABLES Performing Organization Address City/State/ZIP Code Phon e Number [facility] [address] LABS Phosphorus (02/06/2014 5:57 AM CDT) athologist Signature Phosphorus 4.5 2.5 - 4.5 [facility]ERSITY mg/dL CAMPUS LABS Specimen Anatomical Collection Method Collection Time Receive d Time (Source) Location / / Volume Laterality Blood specimen 02/06/2014 5:57 AM 014 6:03 (specimen) CDT AM CDT Omaira Chavez PA-C LAB - BLOOD ORDERABLES Performing Organization Address City/State/ZIP Code Phon e Number [facility] [address] [place], [place] [id number] [place] [address] LABS Magnesium (02/06/2014 5:57 AM CDT) P athologist Signature Magnesium 1.9 1.6 - 2.3 [facility] mg/dL [place] LABS Specimen Anatomical Collection Method Collection Time Receive d Time (Source) Location / / Volume Laterality Blood specimen 02/06/2014 5:57 AM 014 6:03 (specimen) CDT AM CDT Omaira Chavez PA-C LAB - BLOOD ORDERABLES Performing Organization Address City/[facility]/ZIP Code Phon e Number [facility] [address] [place] [address] [facility] LABS (ABNORMAL) CBC with platelets differential (02/06/2014 5:57 AM CDT) Patholo gist Method Time Signature WBC 5.1 4.0 - [facility] 11.0 [facility] 10e9/L [place] LABS RBC Count 3.13 (L) 4.4 - 5.9 [facility] 10e12/L [facility] LABS Hemoglobin 9.6 (L) 13.3 - [facility] 17.7 g/dL [facility] LABS Hematocrit 29.0 (L) 40.0 - [facility] 53.0 % [facility] LABS MCV 93 78 - 100 [facility] fl [facility] LABS MCH 30.7 26.5 - [facility] 33.0 pg [facility] LABS MCHC 33.1 31.5 - [facility] 36.5 g/dL [facility] LABS RDW 14.5 10.0 - [facility] 15.0 % [facility] LABS Platelet Count 85 (L) 150 - 450 [facility] 10e9/L [facility] LABS Diff Method Automated [facility] Method [facility] LABS % Neutrophils 86.0 % [facility] LABS % Lymphocytes 5.1 % [facility] LABS % Monocytes 8.7 % [facility] LABS % Eosinophils 0.0 % [facility] LABS % Basophils 0.0 % [facility] LABS % Immature 0.2 % [facility] Granulocytes [facility] LABS Absolute 4.4 1.6 - 8.3 [facility] Neutrophil 10e9/L [facility] LABS Absolute 0.3 (L) 0.8 - 5.3 [facility] Lymphocytes 10e9/L [facility] LABS Absolute 0.4 0.0 - 1.3 [facility] Monocytes 10e9/L [facility] LABS Absolute 0.0 0.0 - 0.7 [facility] Eosinophils 10e9/L [facility] LABS Absolute 0.0 0.0 - 0.2 [facility] Basophils 10e9/L [facility] LABS Abs Immature 0.0 0 - 0.4 [facility] Granulocytes 10e9/L [facility] LABS Specimen Anatomical Collection Method Collection Time Receive d Time (Source) Location / / Volume Laterality Blood specimen 02/06/2014 5:57 AM 014 6:03 (specimen) CDT AM CDT Omaira Chavez PA-C LAB - BLOOD ORDERABLES Performing Organization Address City/State/ZIP Code Phon e Number [facility] [address] [place], [place] [phone] [place] [address] LABS (ABNORMAL) Lipid panel reflex to direct LDL (02/06/2014 5:57 AM CDT) P athologist Signature Cholesterol 126 <200 mg/dL [facility] LABS Comment: LDL Cholesterol is the primary guide to therapy. The NCEP recommends further evaluation of: patients with cholesterol greater than 200 mg/dL if additional risk facto rs are present, cholesterol greater than 240 mg/dL, triglycerides greater than 1 50 mg/dL, or HDL less than 40 mg/dL. Triglycerides 100 0 - 150 mg/dL [facility] ITY [place] LABS HDL Cholesterol 35 (L) >40 mg/dL [facility] Y [place] LABS LDL Cholesterol Calculated 71 0 - 129 mg/dL [facility] LABS Comment: LDL Cholesterol is the primary guide to therapy: LDL-cholesterol goal in high risk patients is <100 mg/dL and in very high risk patients is <70 mg/dL. VLDL-Cholesterol 20 0 - 30 mg/dL [facility] Cholesterol/HDL Ratio 3.6 0.0 - 5.0 [facility] UNI VERSITY [place] LABS Specimen Anatomical Collection Method Collection Time Receive d Time (Source) Location / / Volume Laterality Blood specimen 02/06/2014 5:57 AM 06/18/2 014 6:03 (specimen) CDT AM CDT Omaira Chavez PA-C LAB - BLOOD ORDERABLES Performing Organization Address City/State/ZIP Code Phon e Number [facility] [address] [place] [address] [facility] LABS Tacrolimus level (02/06/2014 5:57 AM CDT) [facility] gist Method Time Signature Tacrolimus S Negative [facility] Last Dose [facility] LABS Tacrolimus 12.7 5.0 - [facility] Level 15.0 ug/L [facility] LABS Comment: Tacrolimus Reference [...] [facility]/ZIP Code Phon e Number [facility] [address] LABS (ABNORMAL) Glucose by meter (02/06/2014 3:21 AM CDT) P athologist Signature Glucose 216 (H) 60 - 99 POINT OF CARE mg/dL TEST, GLUCOSE Specimen Anatomical Collection Method Collection Time Receive d Time (Source) Location / / Volume Laterality 02/06/2014 3:21 AM 4 3:25 CDT AM CDT Migel Merchant MD LAB - BEAKER POCT Performing Organization Address City/[facility]/ZIP Code Phon e Number [facility] POINT OF CARE TEST, GLUCOSE POINT OF CARE TEST, GLUCOSE (ABNORMAL) Hemoglobin (02/06/2014 1:02 AM CDT) athologist Signature Hemoglobin 10.2 (L) 13.3 - [facility] 17.7 g/dL [place] LABS Specimen Anatomical Collection Method Collection Time Receive d Time (Source) Location / / Volume Laterality Blood specimen 02/06/2014 1:02 AM 014 1:11 (specimen) CDT AM CDT Deysi Alicea MD LAB - BLOOD ORDERABLES Performing Organization Address City/[facility]/ZIP Code Phon e Number [address] LABS (ABNORMAL) Glucose by meter (02/05/2014 10:23 PM CDT) P athologist Signature Glucose 254 (H) 60 - 99 POINT OF CARE mg/dL TEST, GLUCOSE Specimen Anatomical Collection Method Collection Time Receive d Time (Source) Location / / Volume Laterality 02/05/2014 10:23 02/05/2014 PM CDT 10:25 PM CDT Migel Merchant MD LAB - BEAKER POCT Performing Organization Address City/[facility]/ZIP Code Phon e Number [facility] POINT OF CARE TEST, GLUCOSE POINT OF CARE TEST, GLUCOSE Heparin 10a Level (02/05/2014 7:32 PM CDT) P athologist Signature Heparin 10A 0.64 IU/mL [facility] LABS Comment: Therapeutic Range: ?? UFH: ?? [...] Address City/State/ZIP Code Phon e Number [address] LABS (ABNORMAL) Glucose by meter (02/05/2014 [...] LARES - BEAJ POCT Performing Organization Address City/[facility]/ZIP Code Phon e Number [facility] [...] LARES - BEAKER POCT Performing Organization Address City/[facility]/ZIP Code Phon e Number [facility] POINT OF CARE TEST, GLUCOSE POINT OF CARE TEST, GLUCOSE (ABNORMAL) INR (02/05/2014 12:04 PM CDT) P athologist Signature INR 1.24 (H) 0.86 - 1.14 [facility] LABS Specimen Anatomical Collection Method Collection Time Receive d Time (Source) Location / / Volume Laterality Blood specimen 02/05/2014 12:04 4 (specimen) PM CDT 12:10 PM CDT Teresa Wright [facility] LAB - BLOOD ORDERABLES Performing Organization Address City/[facility]/ZIP Code Phon e Number [address] [address] [facility] LABS (ABNORMAL) CBC with platelets (02/05/2014 12:04 PM CDT) Patholo gist Method Time Signature WBC 7.4 4.0 - 11.0 [facility] 10e9/L [facility] LABS RBC Count 3.31 (L) 4.4 - 5.9 [facility] 10e12/L [facility] LABS Hemoglobin 10.3 (L) 13.3 - [facility] 17.7 g/dL [facility] LABS Hematocrit 31.0 (L) 40.0 - [facility] 53.0 % [facility] LABS MCV 94 78 - 100 [facility] fl [facility] LABS MCH 31.1 26.5 - [facility] 33.0 pg [facility] LABS MCHC 33.2 31.5 - [facility] 36.5 g/dL [facility] LABS RDW 14.7 10.0 - [facility] 15.0 % [facility] LABS Platelet Count 91 (L) 150 - 450 [facility] 10e9/L [facility] LABS Specimen Anatomical Collection Method Collection Time Receive d Time (Source) Location / / Volume Laterality Blood specimen 02/05/2014 12:04 4 (specimen) PM CDT 12:10 PM CDT Omaira Chavez PA-C LAB - BLOOD ORDERABLES Performing Organization Address City/State/ZIP Code Phon e Number [id number] [place] [address] LABS (ABNORMAL) Glucose by meter (02/05/2014 11:25 [...] LARES - ROBERT POCT Performing Organization Address City/[facility]/ZIP Code Phon e Number [facility] [...] LAB - BEAJ POCT Performing Organization Address City/[facility]/ZIP Code Phon e Number [facility] POINT OF CARE TEST, GLUCOSE POINT OF CARE TEST, GLUCOSE (ABNORMAL) Basic metabolic panel (02/05/2014 7:02 AM CDT) [facility] gist Method Time Signature Sodium 143 133 - 144 [facility] mmol/L [facility] LABS Potassium 4.3 3.4 - 5.3 [facility] mmol/L [facility] LABS Chloride 107 94 - 109 [facility] mmol/L [facility] LABS Carbon Dioxide 25 20 - 32 [facility] mmol/L [facility] LABS Anion Gap 10 6 - 17 [facility] mmol/L [facility] LABS Glucose 123 (H) 60 - 99 [facility] mg/dL [facility] LABS Urea Nitrogen 66 (H) 7 - 30 [facility] mg/dL [facility] LABS Creatinine 4.77 (H) 0.66 - [facility] 1.25 mg/dL [facility] LABS GFR Estimate 12 (L) >60 [facility] mL/min/1.7 [facility] m2 CAMPUS LABS GFR Estimate If 15 (L) >60 [facility] Black mL/min/1.7 [place] [address] CAMPUS LABS Calcium 9.4 8.5 - 10.4 [facility] mg/dL [facility] LABS Specimen Anatomical Collection Method Collection Time Receive d Time (Source) Location / / Volume Laterality Blood specimen 02/05/2014 7:02 AM 014 7:05 (specimen) CDT AM CDT Omaira Chavez PA-C LAB - BLOOD ORDERABLES Performing Organization Address City/[facility]/ZIP Code Phon e Number [facility] [address] LABS (ABNORMAL) Phosphorus (02/05/2014 7:02 AM CDT) P athologist Signature Phosphorus 5.7 (H) 2.5 - 4.5 [facility] mg/dL [place] LABS Specimen Anatomical Collection Method Collection Time Receive d Time (Source) Location / / Volume Laterality Blood specimen 02/05/2014 7:02 AM 014 7:05 (specimen) CDT AM CDT Omaira Chavez PA-C LAB - BLOOD ORDERABLES Performing Organization Address City/[facility]/ZIP Code Phon e Number [facility] [address] LABS Magnesium (02/05/2014 7:02 AM CDT) P athologist Signature Magnesium 2.0 1.6 - 2.3 [facility] mg/dL [place] LABS Specimen Anatomical Collection Method Collection Time Receive d Time (Source) Location / / Volume Laterality Blood specimen 02/05/2014 7:02 AM 014 7:05 (specimen) CDT AM CDT Omaira Chavez PA-C LAB - BLOOD ORDERABLES Performing Organization Address City/[facility]/ZIP Code Phon e Number [facility] [address] [place], [place] [phone] [place] [address] LABS (ABNORMAL) CBC with platelets differential (02/05/2014 7:02 AM CDT) Patholo gist Method Time Signature WBC 8.9 4.0 - [facility] 11.0 [place] 10e9/L [place] LABS RBC Count 3.20 (L) 4.4 - 5.9 [facility] 10e12/L [facility] LABS Hemoglobin 9.7 (L) 13.3 - [facility] 17.7 g/dL [facility] LABS Hematocrit 30.0 (L) 40.0 - [facility] 53.0 % [facility] LABS MCV 94 78 - 100 [facility] fl [facility] MCH 30.3 26.5 - [facility] 33.0 pg [facility] MCHC 32.3 31.5 - [facility] 36.5 g/dL [facility] RDW 14.6 10.0 - [facility] 15.0 % [facility] Platelet Count 96 (L) 150 - 450 [facility] 10e9/L [facility] Diff Method Automated [facility] Method [facility] % Neutrophils 90.2 % [facility] % Lymphocytes 4.4 % [facility] % Monocytes 5.2 % [facility] % Eosinophils 0[facility]0 % [facility] % Basophils 0.0 % [facility] % Immature 0.2 % [facility] Granulocytes [facility] Absolute 8.1 1.6 - 8.3 [facility] Neutrophil 10e9/L [facility] Absolute 0.4 (L) 0.8 - 5.3 [facility] Lymphocytes 10e9/L [facility] Absolute 0.5 0.0 - 1.3 [facility] Monocytes 10e9/L [facility] Absolute 0.0 0.0 - 0.7 [facility] Eosinophils 10e9/L [facility] Absolute 0.0 0.0 - 0.2 [facility] Basophils 10e9/L [facility] Abs Immature 0.0 0 - 0.4 [facility] Granulocytes 10e9/L [facility] Specimen Anatomical Collection Method Collection Time Receive d Time (Source) Location / / Volume Laterality Blood specimen 02/05/2014 7:02 AM 014 7:05 (specimen) CDT AM CDT Omaira Chavez PA-C LAB - BLOOD ORDERABLES Performing Organization Address City/State/ZIP Code Phon e Number [phone] [place] [address] LABS (ABNORMAL) Parathormone intact (02/05/2014 7:02 AM CDT) Patholo gist Method Time Signature Parathyroid 362 (H) 12 - 72 [facility] Hormone Intact pg/mL [facility] Specimen Anatomical Collection Method Collection Time Receive d Time (Source) Location / / Volume Laterality Blood specimen 02/05/2014 7:02 AM 014 7:05 (specimen) CDT AM CDT Sina Robison MD LAB - BLOOD ORDERABLES Performing Organization Address [facility] Code Phon e Number [address] LABS (ABNORMAL) Ferritin (02/05/2014 7:02 AM CDT) P athologist Signature Ferritin 932 (H) 20 - 300 [facility] ng/mL [place] LABS Specimen Anatomical Collection Method Collection Time Receive d Time (Source) Location / / Volume Laterality Blood specimen 02/05/2014 7:02 AM 014 7:05 (specimen) CDT AM CDT Sina Robison MD LAB - BLOOD ORDERABLES Performing Organization Address [facility] Code Phon e Number [address] LABS (ABNORMAL) Iron and iron binding capacity (02/05/2014 7:02 AM CDT) Analysis Performed At Patho logist Time Signature Iron 119 35 - 180 [facility] ug/dL [facility] Iron Binding 207 (L) 240 - 430 [facility] Cap ug/dL [facility] Iron Saturation 58 (H) 15 - 46 % [facility] Index [facility] Specimen Anatomical Collection Method Collection Time Receive d Time (Source) Location / / Volume Laterality Blood specimen 02/05/2014 7:02 AM 014 7:05 (specimen) CDT AM CDT Sina Robison MD LAB - BLOOD ORDERABLES Performing Organization Address City/[facility]/ZIP Code Phon e Number [facility] [address] LABS (ABNORMAL) Glucose by meter (02/05/2014 [...] - BEAKER POCT Performing Organization Address City/[facility]/ZIP Code Phon e Number FV [...] LAB - BEAJ POCT Performing Organization Address City/[facility]/ZIP Code Phon e Number FV [...] LAB - ROBERT POCT Performing Organization Address City/[facility]/ZIP Code Phon e Number FV [...] LARES - ROBERT POCT Performing Organization Address City/[facility]/ZIP Code Phon e Number FV [...] LARES - ROBERT POCT Performing Organization Address City/[facility]/ZIP Code Phon e Number FV [...] LARES - ROBERT POCT Performing Organization Address City/[facility]/ZIP Code Phon e Number FV [...] Carr MD ECG ORDERABLES Performing Organization Address City/[facility]/ZIP Code Phon e Number RADIOLOGY RESULTS (ABNORMAL) Glucose by meter (02/04/2014 10:56 PM CDT) P athologist Signature Glucose 161 (H) 60 - 99 POINT OF CARE mg/dL TEST, GLUCOSE Specimen Anatomical Collection Method Collection Time Receive d Time (Source) Location / / Volume Laterality 02/04/2014 10:56 02/04/2014 PM CDT 11:00 PM CDT Migel LARES - ROBERT POCT Performing Organization Address City/[facility]/ZIP Code Phon e Number FV [...] LARES - ROBERT POCT Performing Organization Address City/[facility]/ZIP Code Phon e Number FV [...] LAB - ROBERT POCT Performing Organization Address City/[facility]/ZIP Code Phon e Number FV [...] athologist Signature Troponin I 0.016 0.000 - [facility] 0.034 ug/L [place] LABS Specimen Anatomical Collection Method Collection Time Receive d Time (Source) Location / / Volume Laterality Blood specimen 02/04/2014 7:10 PM 014 7:23 (specimen) CDT PM CDT Adeline Diaz MD LAB - BLOOD ORDERABLES Performing Organization Address City/[facility]/ZIP Code Phon e Number [id number] [place] [address] LABS (ABNORMAL) Glucose by meter (02/04/2014 7:01 PM CDT) P athologist Signature Glucose 157 (H) 60 - 99 POINT OF CARE mg/dL TEST, GLUCOSE Specimen Anatomical Collection Method Collection Time Receive d Time (Source) Location / / Volume Laterality 02/04/2014 7:01 PM 4 7:05 CDT PM CDT Migel Merchant MD LAB - BEAKER POCT Performing Organization Address City/[facility]/ZIP Code Phon e Number FV [...] - BEAKER POCT Performing Organization Address City/[facility]/ZIP Code Phon e Number FV [...] 4:10 CDT PM CDT Migel LARES - [facility] POCT Performing Organization Address City/State/ZIP [...] - BEAKER POCT Performing Organization Address City/[facility]/ZIP Code Phon e Number FV [...] Troponin I (02/04/2014 12:42 PM CDT) athologist [facility] Troponin I ES 0.025 0.000 - [facility] 0.034 ug/L CAMPUS LABS Specimen Anatomical Collection Method Collection Time Receive d Time (Source) Location / / Volume Laterality Blood specimen 02/04/2014 12:42 4 (specimen) PM CDT 12:45 PM CDT Adeline Diaz MD LAB - BLOOD ORDERABLES Performing Organization Address City/State/ZIP Code Phon e Number [facility] [address] [place] [address] [facility] LABS (ABNORMAL) Glucose by meter (02/04/2014 12:27 PM CDT) P athologist Signature Glucose 140 (H) 60 - 99 POINT OF CARE mg/dL TEST, GLUCOSE Specimen Anatomical Collection Method Collection Time Receive d Time (Source) Location / / Volume Laterality 02/04/2014 12:27 02/04/2014 PM CDT 12:30 PM CDT Migel LARES - ROBERT POCT Performing Organization Address [facility]/ZIP Code Phon e Number FV [...] LARES - BEAJ POCT Performing Organization Address City/[facility]/ZIP Code Phon e Number FV [...] - ROBERT POCT Performing Organization Address [facility]/ZIP Code Phon e Number FV POINT OF CARE TEST, GLUCOSE POINT OF CARE TEST, GLUCOSE EKG 12-lead, complete (02/04/2014 9:21 AM CDT) [facility] Method Time Signature Interpretation ECG Click View RADIOLOGY Image link RESULTS to view waveform and result Specimen (Source) Anatomical Collection Method Collection Time Re ceived Time Location / / Volume Laterality 02/04/2014 9:21 AM CDT Omaira Chavez PA-C ECG ORDERABLES Performing Organization Address [facility]/ZIP [facility] Phon e Number RADIOLOGY [...] - ROBERT POCT Performing Organization Address [facility]/ZIP Code Phon e Number FV [...] - ROBERT POCT Performing Organization Address [facility]/ZIP [facility] Phon e Number [...] - ROBERT POCT Performing Organization Address [facility] Phon e Number FV POINT OF CARE [...] Owens MD ECG ORDERABLES Performing Organization Address [facility] Phon e Number RADIOLOGY RESULTS (ABNORMAL) Glucose [...] Signature Troponin I ES <0.012 0.000 - [facility] 0.034 ug/L CAMP[facility] LABS Specimen Anatomical Collection Method Collection Time Receive d Time (Source) Location / / Volume Laterality 02/04/2014 5:49 AM 201 4 5:51 CDT AM CDT Caitlin Owens MD LAB - BLOOD ORDERABLES Performing Organization Address City/State/ZIP Code Phon e Number [facility] [address] LABS (ABNORMAL) Basic metabolic panel (02/04/2014 5:49 AM CDT) Patholo gist Method Time Signature Sodium 142 133 - 144 [facility] mmol/L [facility] Potassium 4.9 3.4 - 5.3 [facility] mmol/L [facility] Chloride 107 94 - 109 [facility] mmol/L [facility] [place] [facility] Carbon Dioxide 23 20 - 32 [facility] mmol/L [facility] Anion Gap 12 6 - 17 [facility] mmol/L [facility] Glucose 151 (H) 60 - 99 [facility] mg/dL [facility] [place] [facility] Urea Nitrogen 57 (H) 7 - 30 [facility] mg/dL [facility] [place] [facility] Creatinine 5.94 (H) 0.66 - [facility] 1.25 mg/dL [facility] GFR Estimate 10 (L) >60 [facility] mL/min/1.7 [facility] m2 [facility] LABS GFR Estimate If 12 (L) >60 [facility] Black mL/min/1.7 [place] [address] CAMPUS LABS Calcium 9.4 8.5 - 10.4 [facility] mg/dL [facility] Specimen Anatomical Collection Method Collection Time Receive d Time (Source) Location / / Volume Laterality Blood specimen 02/04/2014 5:49 AM 014 5:51 (specimen) CDT AM CDT Omaira Chavez PA-C LAB - BLOOD ORDERABLES Performing Organization Address City/State/ZIP Code Phon e Number [facility] [address] LABS (ABNORMAL) Phosphorus (02/04/2014 5:49 AM CDT) athologist Signature Phosphorus 6.3 (H) 2.5 - 4.5 [facility] mg/dL [place] LABS Specimen Anatomical Collection Method Collection Time Receive d Time (Source) Location / / Volume Laterality Blood specimen 02/04/2014 5:49 AM 014 5:51 (specimen) CDT AM CDT Omaira Chavez PA-C LAB - BLOOD ORDERABLES Performing Organization Address City/[facility] Phon e Number [facility] [address] LABS Magnesium (02/04/2014 5:49 AM CDT) athologist Signature Magnesium 2.1 1.6 - 2.3 [facility] mg/dL [place] [facility] Specimen Anatomical Collection Method Collection Time Receive d Time (Source) Location / / Volume Laterality Blood specimen 02/04/2014 5:49 AM 014 5:51 (specimen) CDT AM CDT Omaira Chavez PA-C LAB - BLOOD ORDERABLES Performing Organization Address City/State/[facility] Code Phon e Number [facility] [address] [place] [address] [facility] LABS (ABNORMAL) CBC with platelets differential (02/04/2014 5:49 AM CDT) [facility] gist Method Time Signature WBC 13.8 (H) 4.0 - [facility] 11.0 [place] 10e9/L [place] [facility] RBC Count 3.10 (L) 4.4 - 5.9 [facility] 10e12/L [facility] Hemoglobin 9.5 (L) 13.3 - [facility] 17.7 g/dL [facility] Hematocrit 28.7 (L) 40.0 - [facility] 53.0 % [facility] MCV 93 78 - 100 [facility] fl [facility] MCH 30.6 26.5 - [facility] 33.0 pg [facility] MCHC 33.1 31.5 - [facility] 36.5 g/dL [facility] RDW 14.6 10.0 - [facility] 15.0 % [facility] Platelet Count 91 (L) 150 - 450 [facility] 10e9/L [facility] Diff Method Automated [facility] Method [facility] % Neutrophils 95.8 % [facility] % Lymphocytes 1.2 % [facility] % Monocytes 2.8 % [facility] % Eosinophils 0.0 % [facility] [place] [facility] % Basophils 0.0 % [facility] % Immature 0.2 % [facility] Granulocytes [facility] Absolute 13.2 (H) 1.6 - 8.3 [facility] Neutrophil 10e9/L [facility] Absolute 0.2 (L) 0.8 - 5.3 [facility] Lymphocytes 10e9/L [facility] Absolute 0.4 0.0 - 1.3 [facility] Monocytes 10e9/L [facility] Absolute 0.0 0.0 - 0.7 [facility] Eosinophils 10e9/L [facility] Absolute 0.0 0.0 - 0.2 [facility] Basophils 10e9/L [facility] Abs Immature 0.0 0 - 0.4 [facility] Granulocytes 10e9/L [facility] Specimen Anatomical Collection Method Collection Time Receive d Time (Source) Location / / Volume Laterality Blood specimen 02/04/2014 5:49 AM 014 5:51 (specimen) CDT AM CDT Omaira Chavez PA-C LAB - BLOOD ORDERABLES Performing Organization Address City/State/ZIP Code Phon e Number [phone] [place] [address] LABS (ABNORMAL) Glucose by meter (02/04/2014 5:33 [...] - ROBERT POCT Performing Organization Address [facility]/ZIP Code Phon e Number FV [...] - ROBERT POCT Performing Organization Address [facility] Code Phon e [...] - ROBERT POCT Performing Organization Address [facility] Code Phon e [...] Migel JONES POCT Performing Organization Address [facility] Code Phon e [...] LARES - ROBERT POCT Performing Organization Address City/[facility]/ZIP Code Phon e Number [facility] POINT OF CARE TEST, GLUCOSE POINT OF CARE TEST, GLUCOSE Potassium (02/03/2014 10:16 PM CDT) athologist Signature Potassium 4.8 3.4 - 5.3 [facility] mmol/L CAMPUS LABS Specimen Anatomical Collection Method Collection Time Receive d Time (Source) Location / / Volume Laterality Blood specimen 02/03/2014 10:16 4 (specimen) PM CDT 10:19 PM CDT Caitlin Owens MD LAB - BLOOD ORDERABLES Performing Organization Address [facility] Phon e Number [address] LABS (ABNORMAL) Hemoglobin (02/03/2014 10:16 PM CDT) athologist Signature Hemoglobin 9.4 (L) 13.3 - 17.7 [facility] g/dL [place] LABS Specimen Anatomical Collection Method Collection Time Receive d Time (Source) Location / / Volume Laterality Blood specimen 02/03/2014 10:16 4 (specimen) PM CDT 10:19 PM CDT Caitlin Owens MD LAB - BLOOD ORDERABLES Performing Organization Address City/[facility]/ZIP [facility] Phon e Number [facility] [address] LABS (ABNORMAL) Glucose by meter (02/03/2014 9:55 PM CDT) athologist Signature Glucose 167 (H) 60 - 99 POINT OF CARE mg/dL TEST, GLUCOSE Specimen Anatomical Collection Method Collection Time Receive d Time (Source) Location / / Volume Laterality 02/03/2014 9:55 PM 4 CDT 10:00 PM CDT Migel Merchant MD LAB - BEAJ POCT Performing Organization Address City/[facility]/ZIP Code Phon e Number FV [...] LAB - BEAJ POCT Performing Organization Address City/[facility]/ZIP Code Phon e Number FV [...] athologist Signature Potassium 4.7 3.4 - 5.3 [facility] mmol/L CAMP[facility] LABS Specimen Anatomical Collection Method Collection Time Receive d Time (Source) Location / / Volume Laterality Blood specimen 02/03/2014 6:52 PM 014 6:53 (specimen) CDT PM CDT Caitlin Owens MD LAB - BLOOD ORDERABLES Performing Organization Address City/[facility]/ZIP Code Phon e Number [facility] [address] LABS (ABNORMAL) Hemoglobin (02/03/2014 6:52 PM CDT) athologist Signature Hemoglobin 9.6 (L) 13.3 - 17.7 [facility] g/dL [place] LABS Specimen Anatomical Collection Method Collection Time Receive d Time (Source) Location / / Volume Laterality Blood specimen 02/03/2014 6:52 PM 014 6:53 (specimen) CDT PM CDT Caitlin Owens MD LAB - BLOOD ORDERABLES Performing Organization Address City/[facility]/ZIP Code Phon e Number [facility] [address] LABS (ABNORMAL) Glucose by meter (02/03/2014 6:00 PM CDT) athologist Signature Glucose 140 (H) 60 - 99 POINT OF CARE mg/dL TEST, GLUCOSE Specimen Anatomical Collection Method Collection Time Receive d Time (Source) Location / / Volume Laterality 02/03/2014 6:00 PM 4 6:05 CDT PM CDT Migel JONES POCT Performing Organization Address City/[facility]/ZIP Code Phon e Number FV [...] CDT Migel JONES POCT Performing Organization Address City/[facility]/ZIP Code Phon e Number FV [...] - BEAKER POCT Performing Organization Address City/[facility]/ZIP Code Phon e Number FV [...] - BEAKER POCT Performing Organization Address [facility] Phon e Number FV POINT OF CARE TEST, GLUCOSE POINT OF CARE TEST, GLUCOSE Potassium (02/03/2014 1:41 PM CDT) athologist Signature Potassium 4.7 3.4 - 5.3 [facility] mmol/L [facility]AMP[facility] LABS Specimen Anatomical Collection Method Collection Time Receive d Time (Source) Location / / Volume Laterality Blood specimen 02/03/2014 1:41 PM 014 1:43 (specimen) CDT PM CDT Caitlin Owens MD LAB - BLOOD ORDERABLES Performing Organization Address [facility] Code Phon e Number [address] LABS (ABNORMAL) Hemoglobin (02/03/2014 1:41 PM CDT) athologist Signature Hemoglobin 9.8 (L) 13.3 - 17.7 [facility] g/dL [place] [facility] Specimen Anatomical Collection Method Collection Time Receive d Time (Source) Location / / Volume Laterality Blood specimen 02/03/2014 1:41 PM 014 1:43 (specimen) CDT PM CDT Caitlin Owens MD LAB - BLOOD ORDERABLES Performing Organization Address City/[facility] Phon e Number [address] [facility] LABS (ABNORMAL) Glucose by [...] LAB - ROBERT POCT Performing Organization Address City/[facility]/ZIP Code Phon e Number FV [...] - BEAKER POCT Performing Organization Address City/[facility]/ZIP Code Phon e Number [facility] POINT OF CARE TEST, GLUCOSE POINT OF CARE TEST, GLUCOSE Potassium (02/03/2014 10:11 AM CDT) P athologist Signature Potassium 4.8 3.4 - 5.3 [facility] mmol/L [place] [facility] Specimen Anatomical Collection Method Collection Time Receive d Time (Source) Location / / Volume Laterality Blood specimen 02/03/2014 10:11 4 (specimen) AM CDT 10:23 AM CDT Caitlin Owens MD LAB - BLOOD ORDERABLES Performing Organization Address City/[facility]/ZIP Code Phon e Number [facility] [address] [place], [place] [id number] [place] [address] LABS (ABNORMAL) Hemoglobin (02/03/2014 10:11 AM CDT) athologist Signature Hemoglobin 9.7 (L) 13.3 - 17.7 [facility] g/dL [place] [facility] Specimen Anatomical Collection Method Collection Time Receive d Time (Source) Location / / Volume Laterality Blood specimen 02/03/2014 10:11 4 (specimen) AM CDT 10:23 AM CDT Caitlin Owens MD LAB - BLOOD ORDERABLES Performing Organization Address City/[facility]/ZIP Code Phon e Number [facility] [address] [place], [place] [id number] [place] [address] LABS (ABNORMAL) Glucose by meter (02/03/2014 9:58 AM CDT) athologist Signature Glucose 168 (H) 60 - 99 POINT OF CARE mg/dL TEST, GLUCOSE Specimen Anatomical Collection Method Collection Time Receive d Time (Source) Location / / Volume Laterality 02/03/2014 9:58 AM 4 CDT 10:00 AM CDT Migel LARES - ROBERT POCT Performing Organization Address City/[facility]/ZIP Code Phon e Number FV [...] LARES - ROBERT POCT Performing Organization Address City/[facility]/ZIP Code Phon e Number FV [...] - ROBERT POCT Performing Organization Address [facility] Phon e Number FV POINT OF CARE [...] - ROBERT POCT Performing Organization Address [facility] Phon e Number FV POINT OF CARE [...] LARES - BEAJ POCT Performing Organization Address [facility] Phon e Number [facility]V POINT OF CARE TEST, GLUCOSE POINT OF CARE TEST, GLUCOSE (ABNORMAL) Basic metabolic panel (02/03/2014 5:38 AM CDT) [facility] gist Method Time Signature Sodium 141 133 - 144 [facility] mmol/L [facility] [place] [facility] Potassium 4.4 3.4 - 5.3 [facility] mmol/L [facility] Chloride 105 94 - 109 [facility] mmol/L [facility] Carbon Dioxide 20 20 - 32 [facility] mmol/L [facility] [place] [facility] Anion Gap 15 6 - 17 [facility] mmol/L [facility] Glucose 170 (H) 60 - 99 [facility] mg/dL [facility] Urea Nitrogen 49 (H) 7 - 30 [facility] mg/dL [facility] Creatinine 6.38 (H) 0.66 - [facility] 1.25 mg/dL [facility] GFR Estimate 9 (L) >60 [facility] mL/min/1.7 [place] m2 [facility] LABS GFR Estimate If 11 (L) >60 [facility] Black mL/min/1.7 [place] m2 [facility] LABS Calcium 9.1 8.5 - 10.4 [facility] mg/dL [facility] Specimen Anatomical Collection Method Collection Time Receive d Time (Source) Location / / Volume Laterality Blood specimen 02/03/2014 5:38 AM 014 5:40 (specimen) CDT AM CDT Omaira Chavez PA-C LAB - BLOOD ORDERABLES Performing Organization Address City/[facility]/ZIP Code Phon e Number [facility] [address] LABS (ABNORMAL) Phosphorus (02/03/2014 5:38 AM CDT) P athologist Signature Phosphorus 4.7 (H) 2.5 - 4.5 [facility] mg/dL [place] [facility] Specimen Anatomical Collection Method Collection Time Receive d Time (Source) Location / / Volume Laterality Blood specimen 02/03/2014 5:38 AM 014 5:40 (specimen) CDT AM CDT Omaira Chavez PA-C LAB - BLOOD ORDERABLES Performing Organization Address City/State/ZIP Code Phon e Number [facility] [address] LABS Magnesium (02/03/2014 5:38 AM CDT) P athologist Signature Magnesium 2.0 1.6 - 2.3 [facility] mg/dL [place] [facility] Specimen Anatomical Collection Method Collection Time Receive d Time (Source) Location / / Volume Laterality Blood specimen 02/03/2014 5:38 AM 014 5:40 (specimen) CDT AM CDT Omaira Chavez PA-C LAB - BLOOD ORDERABLES Performing Organization Address City/State/ZIP Code Phon e Number [facility] [address] LABS (ABNORMAL) CBC with platelets differential (02/03/2014 5:38 AM CDT) Patholo gist Method Time Signature WBC 13.2 (H) 4.0 - [facility] 11.0 [facility] 10e9/L [place] [facility] RBC Count 3.20 (L) 4.4 - 5.9 [facility] 10e12/L [facility] Hemoglobin 9.9 (L) 13.3 - [facility] 17.7 g/dL [facility] Hematocrit 30.2 (L) 40.0 - [facility] 53.0 % [facility] MCV 94 78 - 100 [facility] fl [facility] MCH 30.9 26.5 - [facility] 33.0 pg [facility] MCHC 32.8 31.5 - [facility] 36.5 g/dL [facility] RDW 14.5 10.0 - [facility] 15.0 % [facility] Platelet Count 108 (L) 150 - 450 [facility] 10e9/L [facility] Diff Method Automated [facility] Method [facility] % Neutrophils 96.9 % [facility] % Lymphocytes 0.7 % [facility] % Monocytes 2.1 % [facility] % Eosinophils 0.0 % [facility] % Basophils 0.1 % [facility] % Immature 0.2 % [facility] Granulocytes [facility] Absolute 12.8 (H) 1.6 - 8.3 [facility] Neutrophil 10e9/L [facility] Absolute 0.1 (L) 0.8 - 5.3 [facility] Lymphocytes 10e9/L [facility] Absolute 0.3 0.0 - 1.3 [facility] Monocytes 10e9/L [facility] Absolute 0.0 0.0 - 0.7 [facility] Eosinophils 10e9/L [facility] Absolute 0.0 0.0 - 0.2 [facility] Basophils 10e9/L [facility] Abs Immature 0.0 0 - 0.4 [facility] Granulocytes 10e9/L [facility] Specimen Anatomical Collection Method Collection Time Receive d Time (Source) Location / / Volume Laterality Blood specimen 02/03/2014 5:38 AM 014 5:40 (specimen) CDT AM CDT Omaira Chavez PA-C LAB - BLOOD ORDERABLES Performing Organization Address City/State/ZIP Code Phon e Number [facility] [address] [place] [address] [facility] LABS (ABNORMAL) Hemoglobin A1c (02/03/2014 5:38 AM CDT) Analysis Performed At Patho logist Time Signature Hemoglobin A1C 6.2 (H) 4.3 - 6.0 [facility] LABS Specimen Anatomical Collection Method Collection Time Receive d Time (Source) Location / / Volume Laterality Blood specimen 02/03/2014 5:38 AM 014 5:40 (specimen) CDT AM CDT Caitlin Owens MD LAB - BLOOD ORDERABLES Performing Organization Address City/[facility]/ZIP Code Phon e Number [facility] [address] [place] [address] [facility] LABS (ABNORMAL) Glucose by meter (02/03/2014 5:05 [...] LARES - ROBERT POCT Performing Organization Address City/[facility]/ZIP Code Phon e Number FV [...] - ROBERT POCT Performing Organization Address [facility] Phon e Number FV POINT OF CARE TEST, GLUCOSE POINT OF CARE TEST, GLUCOSE Potassium (02/03/2014 1:18 AM CDT) athologist Signature Potassium 4.7 3.4 - 5.3 [facility] mmol/L CAMPUS LABS Specimen Anatomical Collection Method Collection Time Receive d Time (Source) Location / / Volume Laterality Blood specimen 02/03/2014 1:18 AM 014 1:20 (specimen) CDT AM CDT Caitlin Owens MD LAB - BLOOD ORDERABLES Performing Organization Address [facility] Phon e Number [address] LABS (ABNORMAL) Hemoglobin (02/03/2014 1:18 AM CDT) athologist Signature Hemoglobin 9.8 (L) 13.3 - 17.7 [facility] g/dL CAMPUS LABS Specimen Anatomical Collection Method Collection Time Receive d Time (Source) Location / / Volume Laterality Blood specimen 02/03/2014 1:18 AM 014 1:20 (specimen) CDT AM CDT Caitlin Owens MD LAB - BLOOD ORDERABLES Performing Organization Address [facility] Phon e Number [address] LABS (ABNORMAL) Glucose by meter (02/03/2014 1:16 AM CDT) P athologist Signature Glucose 186 (H) 60 - 99 POINT OF CARE mg/dL TEST, GLUCOSE Specimen Anatomical Collection Method Collection Time Receive d Time (Source) Location / / Volume Laterality 02/03/2014 1:16 AM 4 1:20 CDT AM CDT Migel Merchant MD LAB - BEAKER POCT Performing Organization Address City/[facility] Phon e Number FV POINT OF CARE [...] - BEAKER POCT Performing Organization Address [facility] Phon e Number FV POINT OF CARE [...] athologist Signature Phosphorus 4.4 2.5 - 4.5 [facility] mg/dL [place] LABS Specimen Anatomical Collection Method Collection Time Receive d Time (Source) Location / / Volume Laterality Blood specimen 02/02/2014 10:50 4 (specimen) PM CDT 11:06 PM CDT Caitlin Owens MD LAB - BLOOD ORDERABLES Performing Organization Address City/State/ZIP Code Phon e Number [facility] [address] [place] [address] [facility] LABS Magnesium (02/02/2014 10:50 PM CDT) athologist Signature Magnesium 1.8 1.6 - 2.3 [facility] mg/dL CAMPUS LABS Specimen Anatomical Collection Method Collection Time Receive d Time (Source) Location / / Volume Laterality Blood specimen 02/02/2014 10:50 4 (specimen) PM CDT 11:06 PM CDT Caitlin Owens MD LAB - BLOOD ORDERABLES Performing Organization Address City/[facility]/ZIP Code Phon e Number [facility] [address] [place], [place] [phone] [place] [address] LABS (ABNORMAL) Basic metabolic panel (02/02/2014 10:50 PM CDT) [facility] Method Time Signature Sodium 138 133 - 144 [facility] mmol/L [facility] [place] LABS Potassium 4.5 3.4 - 5.3 [facility] mmol/L [facility] LABS Chloride 104 94 - 109 [facility] mmol/L [facility] LABS Carbon Dioxide 25 20 - 32 [facility] mmol/L [facility] LABS Anion Gap 10 6 - 17 [facility] mmol/L [facility] LABS Glucose 134 (H) 60 - 99 [facility] mg/dL [facility] LABS Urea Nitrogen 44 (H) 7 - 30 [facility] mg/dL [facility] LABS Creatinine 6.14 (H) 0.66 - [facility] 1.25 mg/dL [facility] LABS GFR Estimate 9 (L) >60 [facility] mL/min/1.7 [facility]ITY m2 CAMPUS LABS GFR Estimate If 11 (L) >60 [facility] Black mL/min/1.7 [place] m2 CAMPUS LABS Calcium 8.8 8.5 - 10.4 [facility] mg/dL [facility] LABS Specimen Anatomical Collection Method Collection Time Receive d Time (Source) Location / / Volume Laterality Blood specimen 02/02/2014 10:50 4 (specimen) PM CDT 11:06 PM CDT Caitlin Owens MD LAB - BLOOD ORDERABLES Performing Organization Address City/[facility]/ZIP Code Phon e Number [facility] [address] [place] [address] [facility] LABS (ABNORMAL) CBC with platelets differential (02/02/2014 10:50 PM CDT) [facility] Method Time Signature WBC 8.2 4.0 - [facility] 11.0 [place] 10e9/L [place] LABS RBC Count 3.34 (L) 4.4 - 5.9 [facility] 10e12/L [facility] LABS Hemoglobin 10.3 (L) 13.3 - [facility] 17.7 g/dL [facility] LABS Hematocrit 30.9 (L) 40.0 - [facility] 53.0 % [facility] LABS MCV 93 78 - 100 [facility] fl [facility] LABS MCH 30.8 26.5 - [facility] 33.0 pg [facility] LABS MCHC 33.3 31.5 - [facility] 36.5 g/dL [facility] LABS RDW 14.3 10.0 - [facility] 15.0 % [facility] LABS Platelet Count 79 (L) 150 - 450 [facility] 10e9/L [facility] LABS Diff Method Automated [facility] Method [facility] LABS % Neutrophils 96.7 % [facility] LABS % Lymphocytes 1.6 % [facility] LABS % Monocytes 1.2 % [facility] LABS % Eosinophils 0.4 % [facility] % Basophils 0.0 % [facility] LABS % Immature 0.1 % [facility] Granulocytes [facility] LABS Absolute 7.9 1.6 - 8.3 [facility] Neutrophil 10e9/L [facility] LABS Absolute 0.1 (L) 0.8 - 5.3 [facility] Lymphocytes 10e9/L [facility] LABS Absolute 0.1 0.0 - 1.3 [facility] Monocytes 10e9/L [facility] LABS Absolute 0.0 0.0 - 0.7 [facility] Eosinophils 10e9/L [facility] LABS Absolute 0.0 0.0 - 0.2 [facility] Basophils 10e9/L [facility] LABS Abs Immature 0.0 0 - 0.4 [facility] Granulocytes 10e9/L [facility] LABS Specimen Anatomical Collection Method Collection Time Receive d Time (Source) Location / / Volume Laterality Blood specimen 02/02/2014 10:50 4 (specimen) PM CDT 11:06 PM CDT Caitlin Owens MD LAB - BLOOD ORDERABLES Performing Organization Address City/State/ZIP Code Phon e Number [phone] [place] [address] LABS (ABNORMAL) VENOUS PANEL (02/02/2014 10:09 PM CDT) [facility] Method Time Signature Ph Venous 7.31 (L) 7.32 - [facility] 7.43 pH [facility] LABS PCO2 Venous 52 (H) 40 - 50 [facility] mm Hg [facility] LABS PO2 Venous 34 25 - 47 [facility] mm Hg [facility] LABS Bicarbonate 26 21 - 28 [facility] Venous mmol/L [facility] LABS Base Deficit 0.3 mmol/L [facility] Venous [facility] LABS Comment: Reference range: -7.7 to 1.9 FIO2 45 [facility] [place] LABS Sodium 137 133 - 144 mmol/L [facility] LABS Potassium 4.4 3.4 - 5.3 mmol/L [facility] LABS Hemoglobin 10.0 (L) 13.3 - 17.7 g/dL [facility] LABS Glucose 116 (H) 60 - 99 mg/dL [facility] LABS Calcium Ionized Whole Blood 4.8 4.4 - 5.2 mg/dL [facility] LABS Specimen Anatomical Collection Method Collection Time Receive d Time (Source) Location / / Volume Laterality 02/02/2014 10:09 02/02/2014 PM CDT 10:14 PM CDT Migel Merchant MD LAB - BLOOD ORDERABLES Performing Organization Address City/[facility]/ZIP Code Phon e Number [phone] [place] [address] LABS (ABNORMAL) Glucose by meter (02/02/2014 9:24 PM CDT) P athologist Signature Glucose 129 (H) 60 - 99 POINT OF CARE mg/dL TEST, GLUCOSE Specimen Anatomical Collection Method Collection Time Receive d Time (Source) Location / / Volume Laterality 02/02/2014 9:24 PM 4 9:31 CDT PM CDT Migel Merchant MD LAB - BEAKER POCT Performing Organization Address City/[facility]/ZIP Code Phon e Number FV [...] - BEAKER POCT Performing Organization Address City/[facility]/ZIP Code Phon e Number FV POINT OF CARE TEST, GLUCOSE POINT OF CARE TEST, GLUCOSE (ABNORMAL) VENOUS PANEL (02/02/2014 6:40 PM CDT) athologist Signature Ph Venous 7.35 7.32 - [facility] 7.43 pH [facility] LABS PCO2 Venous 50 40 - 50 mm [facility] Hg [facility] LABS PO2 Venous 46 25 - 47 mm [facility] Hg [facility] LABS Bicarbonate 28 21 - 28 [facility] Venous mmol/L [facility] LABS Base Excess 1.8 mmol/L [facility] Venous [facility] LABS Comment: Reference range: -7.7 to 1.9 FIO2 100% [facility] LABS Sodium 141 133 - 144 mmol/L [facility] LABS Potassium 3.7 3.4 - 5.3 mmol/L [facility] LABS Hemoglobin 10.3 (L) 13.3 - 17.7 g/dL [facility] LABS Glucose 76 60 - 99 mg/dL [facility] LABS Calcium Ionized Whole Blood 4.8 4.4 - 5.2 mg/dL [facility] LABS Specimen Anatomical Collection Method Collection Time Receive d Time (Source) Location / / Volume Laterality 02/02/2014 6:40 PM 4 6:44 CDT PM CDT Migel Merchant MD LAB - BLOOD ORDERABLES Performing Organization Address City/State/ZIP Code Phon e Number [phone] [place] [address] LABS Glucose by meter (02/02/2014 5:11 PM [...] 3:50 CDT PM CDT Migel Merchant MD [facility] POCT Performing Organization Address City/State/ZIP Code [...] MARYELLEN Blood component (02/02/2014 2:07 PM CDT) [facility] Method Time Signature Unit Number [id number] [facility] LABS Blood Red Blood [facility] Component Cells [facility] Leukocyte [place] LABS Reduced Division 00 [facility] Number [facility] LABS Status of No longer [place] Unit available [facility] 02/06/2014 HOSPITAL LAB 0300 Specimen Anatomical Collection Method Collection Time Receive d Time (Source) Location / / Volume Laterality 02/02/2014 2:07 PM 4 2:10 CDT PM CDT Caitlin Owens MD LABORATORY Performing Organization Address City/State/ZIP Code Phon e Number [facility] [address] [place], [place] [address] [facility] LABS [facility] LAB Blood component (02/02/2014 2:07 PM CDT) [facility] [employer] Method Time Signature Unit Number [id number] [facility] LABS Blood Red Blood [facility] Component Cells [facility] Leukocyte [place] LABS Reduced Division 00 [facility] Status of No longer [place] Unit available [facility] 02/06/2014 HOSPITAL LAB 0300 Specimen Anatomical Collection Method Collection Time Receive d Time (Source) Location / / Volume Laterality 02/02/2014 2:07 PM 4 2:10 CDT PM CDT Caitlin Owens MD LABORATORY Performing Organization Address City/[facility]/ZIP Code Phon e Number [place] [address] [place], [place] [address] [facility] LAB ABO/Rh type and screen (02/02/2014 2:07 PM CDT) [facility] [employer] Method Time Signature Units Ordered 2 [facility] LABS ABO A [facility] LABS RH(D) Pos [facility] LABS Antibody Neg [facility] Screen [facility] LABS Test Valid [facility] Only At [facility] BLOOD BANK Center,Aide LAB w Hospital Specimen 02/05/2014 [facility] BLOOD BANK LAB Crossmatch Red Blood [facility] Cells [facility] LABS Specimen Anatomical Collection Method Collection Time Receive d Time (Source) Location / / Volume Laterality Blood specimen 02/02/2014 2:07 PM 014 2:10 (specimen) CDT PM CDT Caitiln Owens MD LAB - BLOOD BANK TEST ORDER Performing Organization Address City/State/ZIP Code Phon e Number [facility] [address] [place] [address] [facility] LABS [facility] BLOOD BANK LAB (ABNORMAL) Lipid Profile (02/02/2014 2:07 PM CDT) P athologist Signature Cholesterol 135 <200 mg/dL [facility] LABS Comment: LDL Cholesterol is the primary guide to therapy. The NCEP recommends further evaluation of: patients with cholesterol greater than 200 mg/dL if additional risk facto rs are present, cholesterol greater than 240 mg/dL, triglycerides greater than 1 50 mg/dL, or HDL less than 40 mg/dL. Triglycerides 124 0 - 150 mg/dL [facility] ITY [place] LABS HDL Cholesterol 34 (L) >40 mg/dL [facility] LABS LDL Cholesterol Calculated 77 0 - 129 mg/dL [facility] LABS Comment: LDL Cholesterol is the primary guide to therapy: LDL-cholesterol goal in high risk patients is <100 mg/dL and in very high risk patients is <70 mg/dL. VLDL-Cholesterol 25 0 - 30 mg/dL [facility] LABS Cholesterol/HDL Ratio 4.0 0.0 - 5.0 [facility] LABS Specimen Anatomical Collection Method Collection Time Receive d Time (Source) Location / / Volume Laterality Blood specimen 02/02/2014 2:07 PM 2 014 2:08 (specimen) CDT PM CDT Caitlin Owens MD LAB - BLOOD ORDERABLES Performing Organization Address City/[facility]/ZIP Code Phon e Number [address] LABS (ABNORMAL) Hemoglobin A1c (02/02/2014 2:07 PM CDT) Analysis Performed At Patho logist Time Signature Hemoglobin A1C 6.2 (H) 4.3 - 6.0 [facility] LABS Specimen Anatomical Collection Method Collection Time Receive d Time (Source) Location / / Volume Laterality Blood specimen 02/02/2014 2:07 PM 2 014 2:08 (specimen) CDT PM CDT Caitlin Owens MD LAB - BLOOD ORDERABLES Performing Organization Address City/State/ZIP Code Phon e Number [address] LABS Hepatitis C antibody (02/02/2014 2:07 [...] [facility]/ZIP Code Phon e Number [facility] [address] [place], [place] [phone] [place] [address] MICROBIOLOGY Hepatitis B core antibody IgM (02/02/2014 2:07 PM CDT) [facility] Method Time Signature Hepatitis B Negative NEG [facility] Core IgM MICROBIOLOGY Specimen Anatomical Collection Method Collection Time Receive d Time (Source) Location / / Volume Laterality Blood specimen 02/02/2014 2:07 PM 014 2:08 (specimen) CDT PM CDT Caitlin Owens MD LAB - BLOOD ORDERABLES Performing Organization Address City/[facility]/ZIP Code Phon e Number [facility] [address] MICROBIOLOGY Hepatitis B surface antigen (02/02/2014 2:07 PM CDT) [facility] Method Time Signature Hep B Surface Negative NEG [facility] Agn MICROBIOLOGY Specimen Anatomical Collection Method Collection Time Receive d Time (Source) Location / / Volume Laterality Blood specimen 02/02/2014 2:07 PM 2 014 2:08 (specimen) CDT PM CDT Caitlin Owens MD LAB - BLOOD ORDERABLES Performing Organization Address City/[facility]/ZIP Code Phon e Number [facility] [address] [place], [place] [phone] [place] [address] MICROBIOLOGY HIV Antigen Antibody Combo (02/02/2014 2:07 PM CDT) [facility] Method Time Signature HIV Antigen Nonreactive NR [facility] Antibody HIV-1 p24 Ag & HIV-1/HIV-2 Ab Not Detected [facility] LABS Specimen Anatomical Collection Method Collection Time Receive d Time (Source) Location / / Volume Laterality Blood specimen 02/02/2014 2:07 PM 014 2:08 (specimen) CDT PM CDT Caitlin Owens MD LAB - BLOOD ORDERABLES Performing Organization Address City/[facility]/ZIP Code Phon e Number [facility] [address] [place], [place] [phone] [place] [address] [facility]AMP[facility] LABS EBV Capsid Antibody IgM (02/02/2014 2:07 PM CDT) [facility] Method Time Signature EBV Capsid <0.2 0.0 - 0.8 [facility] Antibody IgM No detectable antibody. [facility] LABS Specimen Anatomical Collection Method Collection Time Receive d Time (Source) Location / / Volume Laterality Blood specimen 02/02/2014 2:07 PM 014 2:08 (specimen) CDT PM CDT Caitlin Owens MD LAB - BLOOD ORDERABLES Performing Organization Address City/[facility]/ZIP Code Phon e Number [facility] [address] LABS (ABNORMAL) EBV Capsid Antibody IgG (02/02/2014 2:07 PM CDT) [facility] Method Time Signature EBV Capsid >8.0 0.0 - 0.8 [facility] Antibody IgG Positive, suggests recent or past exposure [facility] () [place] LABS Specimen Anatomical Collection Method Collection Time Receive d Time (Source) Location / / Volume Laterality Blood specimen 02/02/2014 2:07 PM 014 2:08 (specimen) CDT PM CDT Caitlin Owens MD LAB - BLOOD ORDERABLES Performing Organization Address City/[facility]/ZIP Code Phon e Number [facility] [address] LABS CMV antibody IgM (02/02/2014 2:07 PM CDT) Analysis Performed At Patho logist Time Signature CMV Antibody <0.2 0.0 - 0.8 [facility] IgM Negative [facility] LABS Specimen Anatomical Collection Method Collection Time Receive d Time (Source) Location / / Volume Laterality Blood specimen 02/02/2014 2:07 PM 014 2:08 (specimen) CDT PM CDT Caitlin Owens MD LAB - BLOOD ORDERABLES Performing Organization Address City/[facility]/ZIP Code Phon e Number [facility] [address] LABS (ABNORMAL) CMV Antibody IgG (02/02/2014 [...] Code Phon e Number [facility] [address] [place] [address] [place] [facility] LABS (ABNORMAL) Comprehensive metabolic panel (02/02/2014 2:07 PM CDT) [facility] gist Method Time Signature Sodium 141 133 - 144 [facility] mmol/L [facility] LABS Potassium 4.2 3.4 - 5.3 [facility] mmol/L [place] [facility] LABS Chloride 101 94 - 109 [facility] mmol/L [facility] LABS Carbon Dioxide 26 20 - 32 [facility] mmol/L [facility] LABS Anion Gap 13 6 - 17 [facility] mmol/L [facility] LABS Glucose 112 (H) 60 - 99 [facility] mg/dL [facility] LABS Urea Nitrogen 42 (H) 7 - 30 [facility] mg/dL [facility] LABS Creatinine 6.03 (H) 0.66 - [facility] 1.25 [facility]ITY mg/dL CAMPUS LABS GFR Estimate 9 (L) >60 [facility] mL/min/1. [place] [address] LABS GFR Estimate If 11 (L) >60 [facility] Black mL/min/1. [address] LABS Calcium 9.9 8.5 - [facility] 10.4 UN[facility]ERSITY mg/dL CAMPUS LABS Bilirubin Total 0.7 0.2 - 1.3 [facility] mg/dL [facility] LABS Albumin 4.2 3.3 - 4.9 [facility] g/dL [facility] LABS Protein Total 7.5 6.8 - 8.8 [facility] g/dL [facility] LABS Alkaline 88 40 - 150 [facility] Phosphatase U/L [facility] LABS ALT 33 0 - 70 [facility] U/L [facility] LABS AST 18 0 - 45 [facility] U/L [facility] LABS Specimen Anatomical Collection Method Collection Time Receive d Time (Source) Location / / Volume Laterality Blood specimen 02/02/2014 2:07 PM 014 2:08 (specimen) CDT PM CDT Caitlin Owens MD LAB - BLOOD ORDERABLES Performing Organization Address City/State/ZIP Code Phon e Number [facility] [address] [place] [address] [place] [facility] ([facility]NORMAL) CBC with platelets differential (02/02/2014 2:07 PM CDT) [facility] gist Method Time Signature WBC 6.3 4.0 - [facility] 11.0 [place] 10e9/L [place] LABS RBC Count 3.71 (L) 4.4 - 5.9 [facility] 10e12/L [facility] LABS Hemoglobin 11.5 (L) 13.3 - [facility] 17.7 g/dL [facility] LABS Hematocrit 33.7 (L) 40.0 - [facility] 53.0 % [facility] LABS MCV 91 78 - 100 [facility] fl [facility] LABS MCH 31.0 26.5 - [facility] 33.0 pg [facility] LABS MCHC 34.1 31.5 - [facility] 36.5 g/dL [facility] LABS RDW 14.0 10.0 - [facility] 15.0 % [facility] LABS Platelet Count 110 (L) 150 - 450 [facility] 10e9/L [facility] LABS Diff Method Automated [facility] Method [facility] LABS % Neutrophils 52.4 % [facility] LABS % Lymphocytes 32.1 % [facility] LABS % Monocytes 7.9 % [facility]S % Eosinophils 7.1 % [facility] LABS % Basophils 0.3 % [facility] LABS % Immature 0.2 % [facility] Granulocytes [facility] LABS Absolute 3.3 1.6 - 8.3 [facility] Neutrophil 10e9/L [facility] LABS Absolute 2.0 0.8 - 5.3 [facility] Lymphocytes 10e9/L [facility] LABS Absolute 0.5 0.0 - 1.3 [facility] Monocytes 10e9/L [facility] LABS Absolute 0.5 0.0 - 0.7 [facility] Eosinophils 10e9/L [facility] LABS Absolute 0.0 0.0 - 0.2 [facility] Basophils 10e9/L [facility] LABS Abs Immature 0.0 0 - 0.4 [facility] Granulocytes 10e9/L [facility] LABS Specimen Anatomical Collection Method Collection Time Receive d Time (Source) Location / / Volume Laterality Blood specimen 02/02/2014 2:07 PM 014 2:08 (specimen) CDT PM CDT Caitlin Owens MD LAB - BLOOD ORDERABLES Performing Organization Address City/State/ZIP Code Phon e Number [facility] [address] [place] [address] [facility] LABS Creatinine urine calculation only (02/02/2014 2:00 PM CDT) P athologist Signature Creatinine 88 mg/dL [facility] Urine [place] LABS Specimen Anatomical Collection Method Collection Time Receive d Time (Source) Location / / Volume Laterality 02/02/2014 2:00 PM 4 2:12 CDT PM CDT Caitlin Owens MD LAB - URINE ORDERABLES Performing Organization Address City/State/ZIP Code Phon e Number [facility] [address] [place] [address] [facility] LABS (ABNORMAL) Urine culture (02/02/2014 2:00 PM CDT) Component Value Ref Test Analysis Performed At [facility] Range Method Time Signature Specimen Midstream Urine [facility] Description [facility] LABS Special Specimen received [facility] Requests in preservative MICROBIOLOGY Culture Micro <10,000 colonies/mL Gram pos itive cocci No further identification Susceptibility [facility] testing not routinely done SD CROBIOLOGY <10,000 [...] GENERAL ORDERABL ES Performing Organization Address City/[facility]/ZIP Code Phon e Number [facility] [address] [place] [address] [facility] LABS [facility] MICROBIOLOGY (ABNORMAL) Protein random urine (02/02/2014 2:00 PM CDT) [facility] gist Method Time Signature Protein Random 1.89 g/L [facility] Urine [facility] LABS Protein Total 2.15 (H) 0 - 0.2 [facility] Urine g/gr g/g Cr [facility] LABS Specimen Anatomical Collection Method Collection Time Receive d Time (Source) Location / / Volume Laterality Urine specimen URINE SPECIMEN 02/02/2014 2:00 PM 02/02 2:12 (specimen) OBTAINED BY CLEAN CDT PM CDT CATCH PROCEDURE / Unknown Caitlin Owens MD LAB - URINE ORDERABLES Performing Organization Address City/[facility]/ZIP Code Phon e Number [facility] [address] LABS (ABNORMAL) Routine UA with microscopic (02/02/2014 2:00 PM CDT) Patholo gist Method Time Signature Color Urine Light Yellow [facility] LABS Appearance Urine Clear [facility] LABS Glucose Urine 70 (A) NEG mg/dL [facility] LABS Bilirubin Urine Negative NEG [facility] [facility] Ketones Urine Negative NEG mg/dL [facility] Specific [place] 1.008 1.003 - [facility] Urine 1.035 [facility] [place] Blood Urine Negative NEG [facility] pH Urine 8.0 (H) 5.0 - 7.0 [facility] pH [facility] Protein Albumin 100 (A) NEG mg/dL [facility] Urine [facility] Urobilinogen Normal 0.0 - 2.0 [facility] mg/dL mg/dL [facility] Nitrite Urine Negative NEG [facility] Leukocyte Negative NEG [facility] Esterase Urine [facility] Source Clean catch [facility] urine [facility] WBC Urine 1 [...] Code Phon e Number [facility] [address] [place] [address] [facility] (ABNORMAL) Glucose by meter [...] only (02/02/2014 1:58 PM CDT) [facility] gist Method Time Signature Interpretation ECG [...] dose, When verbally ordered by the prescriber. [place] throat with 1-4 sprays 5 minutes prior [...] 11:15 PM CDT 0.4 mg HYDROmorphone (DILAUDID) LEGAL BILLING ANALYST 1 mg/mL Shift Total 02/03/2014 6:24 AM CDT LEGAL BILLING ANALYST dose (mg): 0.1, Max LEGAL BILLING ANALYST dose (mg): 0.2, Lockout Interval (min): 10 minutes, LEGAL BILLING ANALYST Continuous Rate (mg/hr): CONTINUOUS RATE IS NOT [...] dose, When verbally ordered by the prescriber. [place] throat with 1-4 sprays 5 minutes prior [...] Braswell RN) 0809 (Given - Provider: Amanda Henrandez, BOGDAN) 40 mg, Oral, DAILY, First dose [...] Provider: Lashaun Braswell RN)1820 (Given - Provider: Lasahun Braswell RN) 0130 (Given - Provider: Annmarie [...] draw. documented in this encounter Care Teams Editor Managing Director Relationship Specialty Start Date End Date Momo Forbes PCP - General Family Practice 01/02/14 [facility] [address] [place] [address] Ingrid Santana, RN Registered Nurse Transplant 02/10/12 documented as of this encounter
--- OUTSIDE RECORDS SUMMARY | 2022-07-07 10:54 | XMS_ITS | Encounter Summary ---
:1950 Author Organization [place] Address [facility]ly [facility] [place] [address] Care Team Providers Name Role Phone Ingrid Santana RN Unavailable Unavailable Momo Forbes Primary Care Provider Encounter Details Date Type Department Care Team Description 02/02/2014 Results Only LABORATORY RESULTS Migel Merchant MD [address] [place] [address] [address] [place], [place] [id number] (Wo rk) Social History Tobacco Use Types [...] T/B Crossmatch Allo (02/02/2014 6:51 PM CDT) [facility] Method Time Signature Crossmatch Donor:[id number], ?Crossmatch Date:02/02/2014 HISTOTRAC Result (Note) Serum Date [...] Phon e Number [facility] Immunology/Histocompatabil [place], [place] [address] ity [facility] [address], Room [address]-580 HISTOTRAC documented in this encounter Visit Diagnoses Not on filedocumented in this encounter Care Teams Acoustical Material Worker Relationship Specialty Start Date End Date Momo Forbes PCP - General Family Practice 01/02/14 [facility] [address] [place] [address] Ingrid Santana, RN Registered Nurse Transplant 02/10/12 documented as of this encounter
--- OUTSIDE RECORDS SUMMARY | 2022-07-07 10:54 | XMS_ITS | Encounter Summary ---
:1950 Author Organization [place] Address [address] [place] [address] Care Team Providers Name Role Phone Ingrid Santana RN Unavailable Unavailable Momo Forbes Primary Care Provider Encounter Details Date Type Department Care Team Description 02/02/2014 Results Only LABORATORY RESULTS Migel Merchant MD [address] [facility] [address] [place], [place] [address] (Wo rk) Social History Tobacco Use Types [...] Single Antigen (02/02/2014 6:51 PM CDT) [facility] Method Time Signature SA2 Test [...] Phon e Number [facility] Immunology/Histocompatabil [place], [place] [address] [facility] [address] [facility] [address] Building, Room 3-580 HISTOTRAC documented in this encounter Visit Diagnoses Not on filedocumented in this encounter Care Teams Licensed Optical Dispenser Relationship Specialty Start Date End Date Momo Forbes PCP - General Family Practice 01/02/14 [facility] [address] [place] [address] Ingrid Santana, RN Registered Nurse Transplant 02/10/12 documented as of this encounter
--- OUTSIDE RECORDS SUMMARY | 2022-07-07 10:54 | XMS_ITS | Encounter Summary ---
:1950 Author Organization [place] Address [address] [place] [address] Care Team Providers Name Role Phone Ingrid Santana RN Unavailable Unavailable Momo Forbes Primary Care Provider Encounter Details Date Type Department Care Team Description 02/02/2014 Results Only LABORATORY RESULTS Migel Merchant MD [address] [facility] [address] [place], [place] [address] (Wo rk) Social History Tobacco Use Types [...] I Single Antigen (02/02/2014 6:51 PM CDT) [facility] Method Time Signature SA1 Test [...] Phon e Number [facility] Immunology/Histocompatabil [place], [place] [address] [facility] [address] [facility] [address] Building, Room 3-580 HISTOTRAC documented in this encounter Visit Diagnoses Not on filedocumented in this encounter Care Teams Hand Candy Dipper Relationship Specialty Start Date End Date Momo Forbes PCP - General Family Practice 01/02/14 [facility] [address] [place] [address] Ingrid Santana, RN Registered Nurse Transplant 02/10/12 documented as of this encounter
--- OUTSIDE RECORDS SUMMARY | 2022-07-07 10:54 | XMS_ITS | Encounter Summary ---
:1950 Author Organization [place] Address [address] [place] [address]. [place] [address] Care Team Providers Name Role Phone Ingrid Santana RN Unavailable Unavailable Momo Forbes Primary Care Provider Reason for Visit Reason Comments Transplant Encounter Details Date Type Department Care Team Description 02/02/2014 Orders Only Transplant Surgery [place], End stage renal failure Clinic BOGDAN Mae on dialysis (H) 2nd Floor, Clinic 2A (Primary Dx) [address] [phone] Social History Tobacco Use Types Packs/Day Years [...] disease documented in this encounter Care Teams Energy Operations Vice President Relationship Specialty Start Date End Date Momo Forbes PCP - General Family Practice 01/02/14 [facility] [address] [place] [address] Ingrid Santana, RN Registered Nurse Transplant 02/10/12 documented as of this encounter
--- OUTSIDE RECORDS SUMMARY | 2022-07-07 10:54 | XMS_ITS | Encounter Summary ---
:1950 Author Organization [place] Address [address] [facility] [place] [address] Care Team Providers Name Role Phone Ingrid Santana RN Unavailable Unavailable Momo Forbes Primary Care Provider Reason for Visit Auth/Cert - Closed Specialty Diagnoses / Procedures Referred By Contact Refer red To Contact Med Surg Diagnoses end stage renal disease dialysis End stage renal failure on dialysis Renal Failure Uu U7a Procedures TRANSPLANT KIDNEY RECIPIENT DONOR [address] [place] [address] Phone: Referral ID Status Reason Start Date Expiration Date Visits Requ ested Visits Authorized [id number] Closed 02/04/2014 08/03/2014 1 1 Encounter Details Date Type Department Care Team Description 02/02/2014 Anesthesia Event [facility] Joseph Ivey MD XXX RESIGNED XXX [address] [place] [address] PeriOp Services Leigh Ann Blank MD 420 [facility] [address] [place], [place] [address] 500 [place] [address] Anesthesia Record Procedure Summary Procedure [...] Hand Inez Mckeon Sara E RN Saima, PROFESSOR OF ART HISTORY RETIRED ETT 02/02/14; 1753; Airway 02/02/14 1753 [...] Take 1 tablet by mouth daily. B taqdjhg-C-gvwfz acid (NEPHROCAPS) 1 MG capsule Take 1 [...] benefits and alternatives discussed with: patient or lead customer service representative. Possibility of blood products [...] plan were discussed with patient/family or family lead customer service representative. All questions were answered and there was agreement to proceed. History & Physical Review Leigh Ann Blank MD Anesthesiology [id number] [phone] 2:47 PM February 02, 2014 Diego Guthrie was seen and examined and the medical history was reviewed with him. The anesthetic plan was discussed, risks were explained and questions were answered. He agrees to proceed as discussed. I have reviewed this note and agree with the assessment and plan. Joseph Ivey M.D. Staff Anesthesiologist [phone] 02/02/2014 4:48 PM documented in this encounter [...] Date/Time Associated Diagnosis Comme nts [facility] AN [place] PA CENTRAL Routine 02/02/2014 6:19 PM Re [...] passed easily into [facility]. Hyunnarm Nazia DO [place] ANESTHESIA documented in this encounter Visit Diagnoses [...] Intra-op documented in this encounter Care Teams Discharge Rn Relationship Specialty Start Date End Date Momo Forbes PCP - General [facility] Practice 01/02/[address] [address] Ingrid Santana, RN Registered Nurse Transplant 02/10/12 documented as of this encounter
--- OUTSIDE RECORDS SUMMARY | 2022-07-07 10:55 | XMS_ITS | Encounter Summary ---
:1950 Author Organization [place] Address [address] [place] [address] Care Team Providers Name Role Phone Toña Jones MD Primary Care Provider Ingrid Santana RN Unavailable Unavailable Encounter Details Date Type Department Care Team Description 01/17/2013 Results Only LABORATORY RESULTS Barbara Bradley MD [address] [place], [place] [address] Social History Tobacco Use [...] II Single Antigen (01/17/2013) [facility] gist Method Time Signature SA2 Test [...] Phon e Number [facility] Immunology/Histocompatabil [place], [place] [address] ity [facility] [address] [facility] [address] Building, Room 3-580 HISTOTRAC documented in this encounter Visit Diagnoses Not on filedocumented in this encounter Care Teams Medical Dosimetrist Relationship Specialty Start Date End Date Toña Jones MD PCP - General Nephrology 11/25/11 01/01/14 Ingrid Santana RN Registered Nurse Transplant 02/10/12 documented as of this encounter
--- OUTSIDE RECORDS SUMMARY | 2022-07-07 10:55 | XMS_ITS | Encounter Summary ---
:1950 Author Organization [place] Address [address] [place] [address] Care Team Providers Name Role Phone Toña Jones MD Primary Care Provider Ingrid Santana RN Unavailable Unavailable Encounter Details Date Type Department Care Team Description 07/30/2013 Results Only LABORATORY RESULTS Mingo Dangelo MD [address] [facility] [address] [place] [address] (Wo rk) Social History Tobacco [...] HLA Lukasz Class II Single Antigen (07/30/2013) [facility] gist Method Time Signature SA2 [...] Volume Laterality 07/30/2013 07/31/2013 2:1 0 PM SUMMER LAW ASSOCIATE Mingo Dangelo MD LAB - IMMUNOLOGY ORDERABLES Performing Organization Address City/State/ZIP Code Phon e Number [facility] Immunology/Histocompatabil [place], [place] [address] ity [facility] [address], Room 3-580 HISTOTRAC documented in this encounter Visit Diagnoses Not on filedocumented in this encounter Care Teams Liquefied Natural Gas Operator Relationship Specialty Start Date End Date Toña Jones MD PCP - General Nephrology 11/25/11 01/01/14 Ingrid Santana, RN Registered Nurse Transplant 02/10/12 documented as of this encounter
--- OUTSIDE RECORDS SUMMARY | 2022-07-07 10:55 | XMS_ITS | Encounter Summary ---
:1950 Author Organization [place] Address [facility] [facility] [address] Care Team Providers Name Role Phone Toña [...] (madeleine betes mellitus), type 2 (H) [address] [phone] Social History Tobacco Use [...] uncontrolled documented in this encounter Care Teams Retort Unloader Relationship Specialty Start Date End Date Toña Jones MD PCP - General Nephrology 11/25/11 01/01/14 Ingrid Santana, RN Registered Nurse Transplant 02/10/12 documented as of this encounter
--- OUTSIDE RECORDS SUMMARY | 2022-07-07 10:55 | XMS_ITS | Encounter Summary ---
:1950 Author Organization [place] Address [address] [place] [address] Care Team Providers Name Role Phone Ingrid Santana RN Unavailable Unavailable Momo Forbes Primary Care Provider Reason for Visit Reason Onset Date Comments Pre Visit Planning - Done 01/30/2014 EKG: pre op: [age] yo M, here for continued clearance for possib le kidney txp. Encounter Details Date Type Department Care Team Description 01/30/2014 PRE VISIT [facility] Barbara Bradley Pre Visit Planning - [facility] MD Monae Done (EKG: pre op: 63 [address] [place], [place] [address] continued clearance 4th Floor, Clinic 4B for possible kidney [facility] 88 txp.) [address] [place] [phone] Social History Tobacco Use Types Packs/Day Years [...] disease documented in this encounter Care Teams Automotive Title Clerk Relationship Specialty Start Date End Date Momo Forbes PCP - General Family Practice 01/02/14 [facility] [address] [place] [address] Ingrid Santana, RN Registered Nurse Transplant 02/10/12 documented as of this encounter
--- OUTSIDE RECORDS SUMMARY | 2022-07-07 10:55 | XMS_ITS | Encounter Summary ---
:1950 Author Organization [place] Address [facility] [place] [address] Care Team Providers Name Role Phone Toña [...] HLA Lukasz Class I Single Antigen (04/16/2013) [facility] gist Method Time Signature SA1 Test [...] Phon e Number [facility] Immunology/Histocompatabil [place], [place] [address] ity [facility] [address], Room [address]-580 HISTOTRAC documented in this encounter Visit Diagnoses Not on filedocumented in this encounter Care Teams Baker Doughnut Relationship Specialty Start Date End Date Toña Jones MD PCP - General Nephrology 11/25/11 01/01/14 Ingrid Santana, RN Registered Nurse Transplant 02/10/12 documented as of this encounter
--- OUTSIDE RECORDS SUMMARY | 2022-07-07 10:55 | XMS_ITS | Encounter Summary ---
:1950 Author Organization [place] Address [facility] [place] [address] Care Team Providers Name Role Phone Toña [...] on filedocumented in this encounter Care Teams Presentation Designer Relationship Specialty Start Date End Date Toña Jones MD PCP - General Nephrology 11/25/11 01/01/14 Momo Forbes PCP - General Family Practice 01/02/[address] [place] [address] Ingrid Santana, RN Registered Nurse Transplant 02/10/12 documented as of this encounter
--- OUTSIDE RECORDS SUMMARY | 2022-07-07 10:55 | XMS_ITS | Encounter Summary ---
:1950 Author Organization [facility] Address [address] [place] [address] Care Team Providers Name Role Phone Ingrid Santana RN Unavailable Unavailable Momo Forbes Primary Care Provider Reason for Visit Auth/Cert - Closed Specialty Diagnoses / Procedures Referred By Contact Refer red To Contact Med Surg Diagnoses end stage renal disease dialysis End stage renal failure on dialysis Renal Failure Uu U7a Procedures TRANSPLANT KIDNEY RECIPIENT DONOR [address] [place] [address] Phone: Referral ID Status Reason Start Date Expiration Date Visits Requ ested Visits Authorized [id number] Closed 02/04/2014 08/03/2014 1 1 Encounter Details Date Type Department Care Team Description 02/02/2014 Surgery [facility] Migel Merchant , Kidney Transplant , PeriOp Services ureteral stent [address] [place] [address] [place] [address] [place], [place] [address] (Wo rk) Surgery Details Date/Time Status Location [...] Panel Migel Merchant MD Primary Transplant 1 Caitlni Owens MD Resident - Assisting Transplant 1 [...] Physician Discharge Summary Patient ID: Diego Guthrie [id number] 63 year old 1950 Admit date: 02/02/2014 [...] Take 1 tablet by mouth daily. B obpzdaq-F-hcnpo acid (NEPHROCAPS) 1 MG capsule Take 1 [...] of these appointments you will meetwith a special client bus driver and meet your quality coordinator. Your nurse will also be in communication with your surgeon and special client bus driver as needed. The direct number to the [facility] is [phone]. In the [facility] [...] This [facility] be located in [facility] transplant surgery clinic on the second floor.Your transplant surgeon is: Dr. Merchant. You have a ureteral stent in place which needs to be removed in 4-6 weeks. If a patient scheduler does not contact you for this, please contact your quality coordinator. If you have modesta in place, they will be removed in 3 weeks after operation. Notify your coordinator if you have pain over your kidney, fever greater than 101.5F, or decreased urine output. Notify your coordinator immediately if you are ever unable to take your immunosuppressive medications for any reason. Director Of Business Operations [phone] Diet recommendations post-transplant: Heart healthy dietary habits ferry terminal agent (low saturated/trans fat, low sodium). High protein [...] >2. He can be seen by any flexographic printing machinist in the outpatient setting for coordination. Continue metoprolol 25 po bid until he is r e-evaluated. We did attempt inpatient REFUGIO guided cardioversion, but the patient developed significant bleeding while on heparin. José Miguel Alvarez M.D. Search Developer Joseph Quintana MD - 02/08/2014 12:35 PM [...] Dr. Quintana. Sina Robison MD Nephrology Fellow [phone] Attestation: This patient has been seen and [...] Ramires RN - 02/07/2014 2:25 PM CDT Team Lead D: Diego Guthrie 63 year old male POD #5 s/p DDKT for ESRD 2/[address] Diaz note today. Per Dr Diaz, pt will most likely be ready for d/c to home tomorrow and will return to [facility] for 5 days at 0700. Pt [...] him. Pt does not know where the [facility] or transplant clinic is, I told him and he replied I will find it. Pt does not care which [facility] agency will follow him--There are only 2 to choose from, so [facility] [phone]/ --I called and left a message with Estrella Fletcher and I fax'd his records tothem--pt will need start of care approx Thursday 02/15. Pt is new on warfarin and I called his PCP's office and they have INR nurses Tuesday-Tuesday their fax # is [phone] (when N visits are completed --pt will call main clinic # to schedule INR draws). 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 I verified his address and phone #(is his cell) on the facesheet. Pt has not met his OP skin care instructor: Leandro Kahn, yet--I sent Leandro an in basket message today-with plan. A: possible d/c to home Tuesday P: see above-will follow and will call [facility] to confirm they can accept [...] Dr. Quintana. Sina Robison MD Nephrology Fellow [phone] Attestation: This patient has been seen and [...] assistance Medical Decision Making: Medium Subsequent visit 04731 (moderate level decision making) PATO/Fellow/Resident Provider: Adeline [...] Hernandez MD - 02/06/2014 4:25 PM CDT [facility] Cardiology Progress Note I [...] Dr. Quintana. Sina Robison MD Nephrology Fellow [phone] Attestation: This patient has been seen and [...] Dr. Quintana. Sina Robison MD Nephrology Fellow [phone] Attestation: This patient has been seen and [...] REPLACEMENT ONLY ??? insulin (regular) Stopped (02/05/14 0207) Shiva Kahn RN - 02/05/2014 4:47 PM CDT NON DESTRUCTIVE TESTING INSPECTOR NOTE I met with the patient and his yesterday at [facility] PCU-6B (telemetry unit) to discuss transition from inpatient to outpatient care following kidney translantation. The patient is POD #3 extended criteria donor (STONE CARRIAGE OPERATOR) kidney transplant for ESRD related to [...] the plan for daily visits to the [facility] for 5 days after discharge followed [...] meet with the patient again in the [facility] following discharge from [facility]. Michael, Joseph Hernandez MD - 02/05/2014 11:16 AM CDT [facility] Cardiology Progress Note I [...] kidney on 02/02/2014. Pt lives alone in [place] though reports that his girlfriend in in the process of moving in with him. Pt girlfriend, Tete, will be present when pt returns home but she works multimedia designer. Pt was on dialysis for 2 1/2 years prior to transplant. Pt works independently but reports that he currently has no income coming in. Pt has primary insurancethrough Medicare and Secondary insurance through [employer]. Pt has no co-pays for his immunosuppressants and a high out of pocket cost for Valcyte, SW to look into grants for pt for Valcyte. I: Met with pt to introduce this underwriter mortgage loan and explain sw role and services available while inpatient in the hospital. Asked if pt had any questions or concerns and completed an assessment of psychosocialneeds post transplant. Provided education about expectations and requirements post discharge like fol low up in the [facility]. Pt is unsure yet if he [...] arise prior to discharge. Roopa Castro, CECY, MECHANICAL MAINTENANCE TECHNICIAN Indu Calixto MD - 02/05/2014 1:50 [...] PT - 02/04/2014 4:57 PM CDT 02/04/14 7630 Quick Adds Type of Visit Initial PT Evaluation Cage/Vault Supervisor Cage/Vault Supervisor Present no Language Citizen Of [place] Living Environment (R) Lives With alone Living Arrangements ([facility]) Home Accessibility no concerns Number of [...] up when pt is available. CECY Kearns, [facility] [phone] phone [phone] pager Joseph Quintana MD - 02/04/2014 11:51 [...] Dr. Quintana. Sina Robison MD Nephrology Fellow [phone] Attestation: This patient has been seen and [...] for this basename: PTHI, in the last 46416 hours IRON STUDIES No results found for this basename: IRON, FEB, IRONSAT, THEE, in the last 42130 hours Imaging: All imaging studies reviewed by [...] or equal to 12.0 mlU/mL. Adeline Diaz [phone] Attestation: The patient has been seen and [...] donor kidney transplant, with stent on 02/02/14. STONE CARRIAGE OPERATOR donor. Graft function:uncertain, Cr slightly up. [...] . Medical Decision Making: Medium Subsequent visit 76407 (moderate level decision making) PATO/Fellow/Resident Provider: Caitlin [...] note and orders. Migel Merchant MD, PhD weave room supervisor Abdominal Organ Transplantation Carmelita Rosario, RN - 02/03/2014 9:38 AM CDT Patient removed from the OS waitlist after donor kidney transplant. OS ID is [id number]. Rafaela Cardona - 02/03/2014 9:17 AM CDT [...] followed general diet. Patient reports good appetite/intake C SOFTWARE DEVELOPER, no nutrition issues/concnerns. CURRENT NUTRITION ORDERS - [...] DDKT ASSESSED NUTRITION NEEDS: Estimated Energy Needs: [id number]+ kcals (25-30+ Kcal/Kg) Justification: maintenance post-transplant Estimated [...] (6- 8 weeks). Rec follow heart-healthy diet ferry terminal agent. Implementation Nutrition education: Provided instruction on post-transplant diet with discussion regarding protein sources and high protein needs in acute post-tx phase. Reviewed recommendations to follow low fat/lowsodium diet ferry terminal agent and discussed heart healthy diet tips. Discussed [...] adjustment. Rafaela Cardona RD, LD Weekend Coverage [phone] Jose Aguirre MD - 02/03/2014 4:57 AM [...] Doing well postoperatively. Pain: Controlled by Dilaudid SAND CAR WORKER Diet: NPO tonight Volume Status: Borderline low UOP, continue MIVF, 0.9 % NS 500 cc bolus given for low UOP, CVP not accurate, systolic in 100-110 Recheck hemoglobin and potassium normal. Rest of the plan per primary team. Will continue to follow. Jose Aguirre MD PGY-1.................02/03/2014 Surgery Cross Cover Pager:[phone] documented in this encounter H&P Notes Caitlin [...] 1 tablet by mouth daily. ??? 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 Kidney [...] note and orders. Migel Merchant MD, PhD weave room supervisor Abdominal Organ Transplantation documented in this encounter Consult Notes Joseph Rodriguez MD - 02/04/2014 11:03 AM CDTAssociated Order(s): CARDIOLOGY IP CONSULT [facility] CARDIOLOGY CONSULT SERVICE INITIAL CONSULT NOTE [...] 1 tablet by mouth daily. ??? 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 José Miguel Alvarez MD Search Developer Pager: [phone] February 04, 2014 Kaitlynn Leon MD - 02/03/2014 9:30 AM CDT Nephrology Initial Consult February 03, 2014 Diego Guthrie Date of : 1950 Date of Admission:02/02/2014 Primary care provider: Momo Forbes Requesting physician: Migel Merchant MD ASSESSMENT AND RECOMMENDATIONS: 1. DDKT - STONE CARRIAGE OPERATOR -59 yo women; slow graft function-no immediate need for dialysis , but may require tomorrow if UO does not pick up attendant. We will monitor Induction with Thymo/Cellcept and [...] h/o type 2 Dm, who received DDKT (STONE CARRIAGE OPERATOR) on 02/02/2014 donor kidney had severe [...] ??? Cataract iol, rt/lt both eyes MEDICATIONS: C SOFTWARE DEVELOPER Meds Prior to Admission medications Medication Sig Last Dose Taking? Auth Provider Calcium Carbonate-Vitamin D (CALCIUM + D PO) Take by mouth daily. Reported, Patient lisinopril (PRINIVIL,ZESTRIL) 40 MG tablet Take 40 mg by mouth 2 times daily. Reported, Patient METOPROLOL SUCCINATE PO Take by mouth daily. Reported, Patient aspirin 81 MG tablet Take 1 tablet by mouth daily. Reported, Patient B khdevmg-Y-nhyzo acid (NEPHROCAPS) 1 MG capsule Take 1 [...] Intravenous Central line Once ??? HYDROmorphone Intravenous SAND CAR WORKER Infusion Meds ??? 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 Alvin Diego Cardiovascular Disease Fellow [phone] Patient seen and examined by me with [...] Cullen MD, PhD Jarad Cullen MD, PhD [phone] documented in this encounter Nursing Notes Gretta [...] Individualization/Patient-Specific Goal (Adult,OB,Behavioral The patient and/or their solar manufacturer's representative will achieve their patient-specific goals related [...] Card updated. Report called to Saima in [facility]. Left facility accompanied by s.o at 1600. Plan of Care - Amanda Hernandez RN - 02/08/2014 2:13 PM CDT Problem: IP GENERAL POC-ADULT,OB,BEHAVIORAL FVCPM Goal: Individualization/Patient-Specific Goal (Adult,OB,Behavioral The patient and/or their solar manufacturer's representative will achieve their patient-specific goals related [...] Individualization/Patient-Specific Goal (Adult,OB,Behavioral The patient and/or their solar manufacturer's representative will achieve their patient-specific goals related [...] Individualization/Patient-Specific Goal (Adult,OB,Behavioral The patient and/or their solar manufacturer's representative will achieve their patient-specific goals related [...] Diet recommendations post-transplant: Heart healthy dietary habits retirement (low saturated/trans fat, low sodium). High protein diet x 8 weeks. Practice food safety precautions - no fish/seafood x 3 weeks. Inez Luevaon MS, RD, LD Pager [phone] Pharmacy-Immunosuppression Monitoring - Em Vasquez [facility] - 02/07/2014 9:06 AM CDT Tacrolimus [...] will continue to follow. Em Vasquez, Pharm.D., [facility] Pager [phone] Plan of Care - Annmarie Colby RN - 02/07/2014 5:11 AM CDT Problem: IP GENERAL POC-ADULT,OB,BEHAVIORAL FVCPM Goal: Individualization/Patient-Specific Goal (Adult,OB,Behavioral The patient and/or their solar manufacturer's representative will achieve their patient-specific goals related [...] Individualization/Patient-Specific Goal (Adult,OB,Behavioral The patient and/or their solar manufacturer's representative will achieve their patient-specific goals related [...] increased fluid intake, urine color is becoming putaway driver( tea color/bloody- >dark sy/tea color). Incisional pain [...] Physical Therapy Goals The patient and/or their solar manufacturer's representative will achieve their patient-specific goals related [...] Physical Therapy Goals The patient and/or their solar manufacturer's representative will achieve their patient-specific goals related [...] Individualization/Patient-Specific Goal (Adult,OB,Behavioral The patient and/or their solar manufacturer's representative will achieve their patient-specific goals related [...] Individualization/Patient-Specific Goal (Adult,OB,Behavioral The patient and/or their solar manufacturer's representative will achieve their patient-specific goals related [...] Physical Therapy Goals The patient and/or their solar manufacturer's representative will achieve their patient-specific goals related [...] at this time. Pharmacy - Cayetano Olivera, [facility] - 02/05/2014 12:26 PM CDT Visited 02/05/2014 in hospital room prior to discharge to review medications, review discharge process and review specialty pharmacy program. Med Review: Reviewed patient's medications and medical conditions. Patient would like to use [facility] to manage all medications. Medcard: [...] Specialty Pharmacy review: Discussed the benefits of [facility] and Diego has enrolled. Also gave him supplies (blood pressure cuff, thermometer, and pill box) Other concerns: No other concerns at this time. No further questions for this pharmacist. Inez Cox, Student Pharmacist Movable Bulkhead Installer [facility] [address] [place] [id number] Cayetano Olivera, Pharmacist [facility] [phone] Pharmacy-Anticoagulation Service - Teresa Wright [facility] - 02/05/2014 11:29 AM CDT Clinical [...] Individualization/Patient-Specific Goal (Adult,OB,Behavioral The patient and/or their solar manufacturer's representative will achieve their patient-specific goals related [...] melonie hard time making full sentences. When underwriter mortgage loan came on shift at 8pm patient was [...] Individualization/Patient-Specific Goal (Adult,OB,Behavioral The patient and/or their solar manufacturer's representative will achieve their patient-specific goals related [...] Physical Therapy Goals The patient and/or their solar manufacturer's representative will achieve their patient-specific goals related [...] by friend. Pt transferred to chair, VSS, quality assurance monitor body on, oriented to room. Pharmacy-Admission Medication History - Teresa Wright [facility] - 02/04/2014 11:54 AM CDT Admission medication history interview status for the 02/02/2014 admission is complete. See [facility] admission navigator for allergy information, prior to admission medications and immunization status. Medication history interview sources (including written lists, pill bottles, clinic record):Patient Medication history source reliability:Good Primary pharmacy:[facility] phone number: [phone] Changes made to C SOFTWARE DEVELOPER medication list (reason) Added: Vitamin D 1,000 [...] at Unknown time Yes Reported, Patient B ajozvgr-K-ksprn acid (NEPHROCAPS) 1 MG capsule Take 1 [...] Individualization/Patient-Specific Goal (Adult,OB,Behavioral The patient and/or their solar manufacturer's representative will achieve their patient-specific goals related [...] 45 minutes and remains in A-fib via bus monitor. Repeat EKG around 1000 showed continued [...] Physical Therapy Goals The patient and/or their solar manufacturer's representative will achieve their patient-specific goals related to the plan of care. The patient-specific goals include: PT 7A: HOLD for AM per RN - pt with a-fib this morning. Plan of Care - Alisson Diane RN - 02/04/2014 6:45 AM CDT Problem: IP GENERAL POC-ADULT,OB,BEHAVIORAL FVCPM Goal: Individualization/Patient-Specific Goal (Adult,OB,Behavioral The patient and/or their solar manufacturer's representative will achieve their patient-specific goals related [...] Individualization/Patient-Specific Goal (Adult,OB,Behavioral The patient and/or their solar manufacturer's representative will achieve their patient-specific goals related [...] to yellow. Pharmacy-Transplant Note - Davina Schuster [facility] - 02/03/2014 4:28 PM CDT Adult [...] Individualization/Patient-Specific Goal (Adult,OB,Behavioral The patient and/or their solar manufacturer's representative will achieve their patient-specific goals related to the plan of care. The patient-specific goals include: 1. Pt will remain hemodynamically stable 2. Pt will have adequate urine output 3. Pt will be free of falls. RD Patient will verbalize understanding of 3 important aspects of post-transplant diet guidelines. PO intake >50% meals TID once diet adv. Report taken from [facility] on 6B; patient transferred to from 6B via wheelchair around 1500. Patientsettled into room, oriented to floor/room and call light. VS taken. Orders released. Continue ordersas written and notify MD with any concerns. Plan of Care - Sofie Christianson RN - 02/03/2014 2:59 PM CDT Problem: IP GENERAL POC-ADULT,OB,BEHAVIORAL FVCPM Goal: Plan of Care Review (Adult,OB,Behavioral) The patient and/or their solar manufacturer's representative will communicate an understanding of their [...] algorithm 2, 1 unit now. Pt still [id number] NC to maintain sats above 90 % [...] Individualization/Patient-Specific Goal (Adult,OB,Behavioral The patient and/or their solar manufacturer's representative will achieve their patient-specific goals related [...] Intermittent sharp R lower abd pain. Dilaudid SAND CAR WORKER encouraged, increased to 0.2//.2. R lower abd [...] 0200 made 20cc/hr, at 0300 made 30cc/hr. Preemption/red tinged urine. MIVF @ 125/hr. VSS. HR 70s, BPs 100s-120s/60s. No new orders at this time. Will continue to monitor. Plan of Care - Tasia Andrade RN - 02/03/2014 12:00 AM CDT Pt arrived to 6B from PACU, s/p DDKT. A&O x3-4. VSS. Preemption/red urine output. Small amt drainage on abd [...] Type 2 Diabetes. The patient received [facility] offer for a Donor STONE CARRIAGE OPERATOR (expanded criteria donor) kidney transplant. After [...] The UNOS number of the donor is [id number]. The crossmatch was done prospectively; and the [...] reconstruction. FACULTY SURGEON: Migel Merchant M.D., Ph.D. FELLOW/COMMUNITY AFFAIRS MANAGER SURGEON: Caitlin Owens MD fellow ANESTHESIA: None VERIFICATION: Prior to incision, I verified the donor ABO and recipient ABO. After the donor organ arrived to the operating room and prior to anastamosis, I visually verified that the donor identification, blood type, and other vital data were compatible with the recipient. FINDINGS: Donor type: STONE CARRIAGE OPERATOR (expanded criteria donor) Organ: kidney Graft [...] Individualization/Patient-Specific Goal (Adult,OB,Behavioral The patient and/or their solar manufacturer's representative will achieve their patient-specific goals related [...] Individualization/Patient-Specific Goal (Adult,OB,Behavioral The patient and/or their solar manufacturer's representative will achieve their patient-specific goals related [...] Not Provided [facility] Last Dose [facility] Tacrolimus 10.0 5.0 - [facility] Level 15.0 ug/L [facility] Comment: Tacrolimus Reference Range Kidney [...] Address City/[facility]/ZIP Code Phon e Number [facility] [address] LABS (ABNORMAL) INR (02/08/2014 6:42 AM CDT) P athologist Signature INR 1.28 (H) 0.86 - 1.14 [facility] Specimen Anatomical Collection Method Collection Time Receive d Time (Source) Location / / Volume Laterality Blood specimen 02/08/2014 6:42 AM 014 6:43 (specimen) CDT AM CDT Omaira Chavez PA-C LAB - BLOOD ORDERABLES Performing Organization Address City/State/ZIP Code Phon e Number [facility] [address] LABS (ABNORMAL) Basic metabolic panel (02/08/2014 6:42 AM CDT) Patholo gist Method Time Signature Sodium 144 133 - 144 [facility] mmol/L [facility] Potassium 3.9 3.4 - 5.3 [facility] mmol/L [facility] Chloride 110 (H) 94 - 109 [facility] mmol/L [facility] Carbon Dioxide 25 20 - 32 [facility] mmol/L [facility] Anion Gap 8 6 - 17 [facility] mmol/L [facility] Glucose 144 (H) 60 - 99 [facility] mg/dL [facility] Urea Nitrogen 66 (H) 7 - 30 [facility] mg/dL [facility] Creatinine 2.38 (H) 0.66 - [facility] 1.25 mg/dL [facility] GFR Estimate 28 (L) >60 [facility] mL/min/1.7 [place] [facility] LABS GFR Estimate If 34 (L) >60 [facility] Black mL/min/1.7 [place] [id number] CAMPUS LABS Calcium 9.4 8.5 - 10.4 [facility] mg/dL [facility] Specimen Anatomical Collection Method Collection Time Receive d Time (Source) Location / / Volume Laterality Blood specimen 02/08/2014 6:42 AM 014 6:43 (specimen) CDT AM CDT Omaira Chavez PA-C LAB - BLOOD ORDERABLES Performing Organization Address City/[facility]/ZIP Code Phon e Number [address] LABS Phosphorus (02/08/2014 6:42 AM CDT) P athologist Signature Phosphorus 2.5 2.5 - 4.5 [facility] mg/dL [place] LABS Specimen Anatomical Collection Method Collection Time Receive d Time (Source) Location / / Volume Laterality Blood specimen 02/08/2014 6:42 AM 014 6:43 (specimen) CDT AM CDT Omaira Chavez PA-C LAB - BLOOD ORDERABLES Performing Organization Address City/[place] Clinic/ZIP Code Phon e Number [address] LABS Magnesium (02/08/2014 6:42 AM CDT) athologist Signature Magnesium 2.2 1.6 - 2.3 [facility] mg/dL [place] LABS Specimen Anatomical Collection Method Collection Time Receive d Time (Source) Location / / Volume Laterality Blood specimen 02/08/2014 6:42 AM 014 6:43 (specimen) CDT AM CDT Omaira Chavez PA-C LAB - BLOOD ORDERABLES Performing Organization Address City/[facility]/ZIP Code Phon e Number [address] LABS (ABNORMAL) CBC with platelets differential (02/08/2014 6:42 AM CDT) Patholo gist Method Time Signature WBC 4.8 4.0 - [facility] 11.0 [place] 10e9/L [place] LABS RBC Count 2.56 (L) 4.4 - 5.9 [facility] 10e12/L [facility] LABS Hemoglobin 7.8 (L) 13.3 - [facility] 17.7 g/dL [facility] LABS Hematocrit 23.5 (L) 40.0 - [facility] 53.0 % [facility] LABS MCV 92 78 - 100 [facility] fl [facility] LABS MCH 30.5 26.5 - [facility] 33.0 pg [facility] [place] [facility] MCHC 33.2 31.5 - [facility] 36.5 g/dL [facility] LABS RDW 14.5 10.0 - [facility] 15.0 % [facility] LABS Platelet Count 70 (L) 150 - 450 [facility] 10e9/L [facility] LABS Diff Method Automated [facility] Method [facility] LABS % Neutrophils 86.3 % [facility] LABS % Lymphocytes 3.1 % [facility] LABS % Monocytes 9.4 % [facility] LABS % Eosinophils 1.0 % [facility] LABS % Basophils 0.0 % [facility] % Immature 0.2 % [facility] Granulocytes [facility] LABS Absolute 4.1 1.6 - 8.3 [facility] Neutrophil 10e9/L [facility] LABS Absolute 0.2 (L) 0.8 - 5.3 [facility] Lymphocytes 10e9/L [facility] LABS Absolute 0.5 0.0 - 1.3 [facility] Monocytes 10e9/L [facility] LABS Absolute 0.1 0.0 - 0.7 [facility] Eosinophils 10e9/L [facility] LABS Absolute 0.0 0.0 - 0.2 [facility] Basophils 10e9/L [facility] LABS Abs Immature 0.0 0 - 0.4 [facility] Granulocytes 10e9/L [facility] LABS Specimen Anatomical Collection Method Collection Time Receive d Time (Source) Location / / Volume Laterality Blood specimen 02/08/2014 6:42 AM 014 6:43 (specimen) CDT AM CDT Omaira Chavez PA-C LAB - BLOOD ORDERABLES Performing Organization Address City/State/ZIP Code Phon e Number [facility] [address] [place], [place] [id number] [place] [address] LABS (ABNORMAL) Glucose by meter (02/07/2014 10:18 PM CDT) P athologist Signature Glucose 233 (H) 60 - 99 POINT OF CARE mg/dL TEST, GLUCOSE Specimen Anatomical Collection Method Collection Time Receive d Time (Source) Location / / Volume Laterality 02/07/2014 10:18 02/07/2014 PM CDT 10:20 PM CDT Migel Merchant MD LAB - BEAKER POCT Performing Organization Address [facility] Phon e Number FV POINT [...] LAB - BEAKER POCT Performing Organization Address [facility] Phon e Number FV POINT [...] LAB - BEAJ POCT Performing Organization Address [facility] Phon e Number FV POINT [...] LAB - BEAJ POCT Performing Organization Address [facility] Phon e Number FV POINT [...] 7:50 CDT AM CDT Migel Merchant MD [facility] POCT Performing Organization Address City/State/ZIP [...] Signature INR 1.25 (H) 0.86 - 1.14 [facility] LABS Specimen Anatomical Collection Method Collection Time Receive d Time (Source) Location / / Volume Laterality Blood specimen 02/07/2014 4:23 AM 014 4:24 (specimen) CDT AM CDT Omaira Chavez PA-C LAB - BLOOD ORDERABLES Performing Organization Address City/State/ZIP Code Phon e Number [id number] [place] [address] LABS (ABNORMAL) Basic metabolic panel (02/07/2014 4:23 AM CDT) [facility] gist Method Time Signature Sodium 143 133 - 144 [facility] mmol/L [facility] LABS Potassium 4.1 3.4 - 5.3 [facility] mmol/L [facility] LABS Chloride 109 94 - 109 [facility] mmol/L [facility] LABS Carbon Dioxide 24 20 - 32 [facility] mmol/L [facility] LABS Anion Gap 10 6 - 17 [facility] mmol/L [facility] LABS Glucose 185 (H) 60 - 99 [facility] mg/dL [facility] LABS Urea Nitrogen 77 (H) 7 - 30 [facility] mg/dL [facility] LABS Creatinine 3.02 (H) 0.66 - [facility] 1.25 mg/dL [facility] LABS GFR Estimate 21 (L) >60 [facility] mL/min/1.7 [place] m2 CAMPUS LABS GFR Estimate If 26 (L) >60 [facility] Black mL/min/1.7 [place] [address] CAMPUS LABS Calcium 9.3 8.5 - 10.4 [facility] mg/dL [facility] LABS Specimen Anatomical Collection Method Collection Time Receive d Time (Source) Location / / Volume Laterality Blood specimen 02/07/2014 4:23 AM 014 4:24 (specimen) CDT AM CDT Omaira Chavez PA-C LAB - BLOOD ORDERABLES Performing Organization Address City/[facility]/ZIP Code Phon e Number [address] LABS Phosphorus (02/07/2014 4:23 AM CDT) P athologist Signature Phosphorus 3.5 2.5 - 4.5 [facility] mg/dL [place] LABS Specimen Anatomical Collection Method Collection Time Receive d Time (Source) Location / / Volume Laterality Blood specimen 02/07/2014 4:23 AM 014 4:24 (specimen) CDT AM CDT Omaira Chavez PA-C LAB - BLOOD ORDERABLES Performing Organization Address City/State/ZIP Code Phon e Number [address] LABS Magnesium (02/07/2014 4:23 AM CDT) P athologist Signature Magnesium 2.1 1.6 - 2.3 [facility] mg/dL [place] LABS Specimen Anatomical Collection Method Collection Time Receive d Time (Source) Location / / Volume Laterality Blood specimen 02/07/2014 4:23 AM 014 4:24 (specimen) CDT AM CDT Omaira Chavez PA-C LAB - BLOOD ORDERABLES Performing Organization Address City/State/ZIP Code Phon e Number [address] LABS (ABNORMAL) CBC with platelets differential (02/07/2014 4:23 AM CDT) Patholo gist Method Time Signature WBC 2.7 (L) 4.0 - [facility] 11.0 [place] 10e9/L [place] LABS RBC Count 2.80 (L) 4.4 - 5.9 [facility] 10e12/L [facility] LABS Hemoglobin 8.5 (L) 13.3 - [facility] 17.7 g/dL [facility] LABS Hematocrit 25.8 (L) 40.0 - [facility] 53.0 % [facility] LABS MCV 92 78 - 100 [facility] fl [facility] LABS MCH 30.4 26.5 - [facility] 33.0 pg [facility] LABS MCHC 32.9 31.5 - [facility] 36.5 g/dL [facility] LABS RDW 14.5 10.0 - [facility] 15.0 % [facility] LABS Platelet Count 77 (L) 150 - 450 [facility] 10e9/L [facility] LABS Diff Method Automated [facility] Method [facility] LABS % Neutrophils 87.5 % [facility] % Lymphocytes 3.8 % [facility] % Monocytes 8.7 % [facility] % Eosinophils 0.0 % [facility] % Basophils 0.0 % [facility] % Immature 0.0 % [facility] Granulocytes [facility] LABS Absolute 2.3 1.6 - 8.3 [facility] Neutrophil 10e9/L [facility] LABS Absolute 0.1 (L) 0.8 - 5.3 [facility] Lymphocytes 10e9/L [facility] LABS Absolute 0.2 0.0 - 1.3 [facility] Monocytes 10e9/L [facility] LABS Absolute 0.0 0.0 - 0.7 [facility] Eosinophils 10e9/L [facility] LABS Absolute 0.0 0.0 - 0.2 [facility] Basophils 10e9/L [facility] LABS Abs Immature 0.0 0 - 0.4 [facility] Granulocytes 10e9/L [facility] LABS Specimen Anatomical Collection Method Collection Time Receive d Time (Source) Location / / Volume Laterality Blood specimen 02/07/2014 4:23 AM 014 4:24 (specimen) CDT AM CDT Omaira Chavez PA-C LAB - BLOOD ORDERABLES Performing Organization Address City/State/ZIP Code Phon e Number [phone] [place] [address] LABS (ABNORMAL) Hemoglobin A1c (02/07/2014 4:23 AM CDT) Analysis Performed At Patho logist Time Signature Hemoglobin A1C 6.1 (H) 4.3 - 6.0 [facility] % [facility] LABS Specimen Anatomical Collection Method Collection Time Receive d Time (Source) Location / / Volume Laterality Blood specimen 02/07/2014 4:23 AM 014 4:24 (specimen) CDT AM CDT Omaira Chavez PA-C LAB - BLOOD ORDERABLES Performing Organization Address City/State/ZIP Code Phon e Number [address] [address] [facility] LABS (ABNORMAL) Glucose by meter (02/06/2014 [...] 13.3 - 17.7 [facility] g/dL [place] LABS Specimen Anatomical Collection Method Collection Time Receive d Time (Source) Location / / Volume Laterality Blood specimen 02/06/2014 4:59 PM 014 5:12 (specimen) CDT PM CDT Omaira Chavez PA-C LAB - BLOOD ORDERABLES Performing Organization Address City/[facility]/ZIP Code Phon e Number [facility] [address] LABS (ABNORMAL) Glucose by meter (02/06/2014 [...] PTT 154 (HH) 22 - 37 sec [facility] LABS Comment: Critical Value called to and read back Whitney HODGSON 6B RN AT 0642. PW Specimen Anatomical Collection Method Collection Time Receive d Time (Source) Location / / Volume Laterality 02/06/2014 5:57 AM 4 6:03 CDT AM CDT Adeline Diaz MD LAB - BLOOD ORDERABLES Performing Organization Address City/[facility]/ZIP Code Phon e Number [facility] [address] [place], [place] [phone] [place] [address] LABS Heparin Xa (10a) Level (02/06/2014 5:57 AM CDT) athologist Signature Heparin 10A 0.92 IU/mL [facility] LABS Comment: Therapeutic Range: ?? UFH: [...] - BLOOD ORDERABLES Performing Organization Address City/[facility] Code Phon e Number [facility] [address] LABS (ABNORMAL) INR (02/06/2014 5:57 AM CDT) P athologist Signature INR 1.32 (H) 0.86 - 1.14 [facility] LABS Specimen Anatomical Collection Method Collection Time Receive d Time (Source) Location / / Volume Laterality Blood specimen 02/06/2014 5:57 AM 014 6:03 (specimen) CDT AM CDT Omaira Chavez PA-C LAB - BLOOD ORDERABLES Performing Organization Address City/State/ZIP Code Phon e Number [facility] [address] LABS (ABNORMAL) Basic metabolic panel (02/06/2014 5:57 AM CDT) Patholo gist Method Time Signature Sodium 142 133 - 144 [facility] mmol/L [facility] LABS Potassium 4.7 3.4 - 5.3 [facility] mmol/L [facility] LABS Chloride 106 94 - 109 [facility] mmol/L [facility] LABS Carbon Dioxide 28 20 - 32 [facility] mmol/L [facility] LABS Anion Gap 8 6 - 17 [facility] mmol/L [facility] LABS Glucose 196 (H) 60 - 99 [facility] mg/dL [facility] LABS Urea Nitrogen 71 (H) 7 - 30 [facility] mg/dL [facility] LABS Creatinine 3.96 (H) 0.66 - [facility] 1.25 mg/dL [facility] [place] LABS GFR Estimate 15 (L) >60 [facility] mL/min/1.7 [place] m2 CAMPUS LABS GFR Estimate If 19 (L) >60 [facility] Black mL/min/1.7 [place] m2 CAMPUS LABS Calcium 9.4 8.5 - 10.4 [facility] mg/dL [facility] LABS Specimen Anatomical Collection Method Collection Time Receive d Time (Source) Location / / Volume Laterality Blood specimen 02/06/2014 5:57 AM 014 6:03 (specimen) CDT AM CDT Omaira Chavez PA-C LAB - BLOOD ORDERABLES Performing Organization Address City/State/ZIP Code Phon e Number [facility] [address] LABS Phosphorus (02/06/2014 5:57 AM CDT) P athologist Signature Phosphorus 4.5 2.5 - 4.5 [facility] mg/dL [place] LABS Specimen Anatomical Collection Method Collection Time Receive d Time (Source) Location / / Volume Laterality Blood specimen 02/06/2014 5:57 AM 014 6:03 (specimen) CDT AM CDT Omaira Chavez PA-C LAB - BLOOD ORDERABLES Performing Organization Address City/State/ZIP Code Phon e Number [facility] [address] LABS Magnesium (02/06/2014 5:57 AM CDT) P athologist Signature Magnesium 1.9 1.6 - 2.3 [facility] mg/dL [place] LABS Specimen Anatomical Collection Method Collection Time Receive d Time (Source) Location / / Volume Laterality Blood specimen 02/06/2014 5:57 AM 014 6:03 (specimen) CDT AM CDT Omaira Chavez PA-C LAB - BLOOD ORDERABLES Performing Organization Address City/State/ZIP Code Phon e Number [facility] [address] [place], [place] [phone] [place] [address] LABS (ABNORMAL) CBC with platelets differential (02/06/2014 5:57 AM CDT) Patholo gist Method Time Signature WBC 5.1 4.0 - [facility] 11.0 [facility] 10e9/L [place] LABS RBC Count 3.13 (L) 4.4 - 5.9 [facility] 10e12/L [facility] LABS Hemoglobin 9.6 (L) 13.3 - [facility] 17.7 g/dL [facility] LABS Hematocrit 29.0 (L) 40.0 - [facility] 53.0 % [facility] LABS MCV 93 78 - 100 [facility] fl [facility] LABS MCH 30.7 26.5 - [facility] 33.0 pg [facility] LABS MCHC 33.1 31.5 - [facility] 36.5 g/dL [facility] LABS RDW 14.5 10.0 - [facility] 15.0 % [facility] LABS Platelet Count 85 (L) 150 - 450 [facility] 10e9/L [facility] LABS Diff Method Automated [facility] Method [facility] LABS % Neutrophils 86.0 % [facility] LABS % Lymphocytes 5.1 % [facility] LABS % Monocytes 8.7 % [facility] LABS % Eosinophils 0.0 % [facility] % Basophils 0.0 % [facility] LABS % Immature 0.2 % [facility] Granulocytes [facility] LABS Absolute 4.4 1.6 - 8.3 [facility] Neutrophil 10e9/L [facility] LABS Absolute 0.3 (L) 0.8 - 5.3 [facility] Lymphocytes 10e9/L [facility] LABS Absolute 0.4 0.0 - 1.3 [facility] Monocytes 10e9/L [facility] LABS Absolute 0.0 0.0 - 0.7 [facility] Eosinophils 10e9/L [facility] LABS Absolute 0.0 0.0 - 0.2 [facility] Basophils 10e9/L [facility] LABS Abs Immature 0.0 0 - 0.4 [facility] Granulocytes 10e9/L [facility] LABS Specimen Anatomical Collection Method Collection Time Receive d Time (Source) Location / / Volume Laterality Blood specimen 02/06/2014 5:57 AM 014 6:03 (specimen) CDT AM CDT Omaira Chavez PA-C LAB - BLOOD ORDERABLES Performing Organization Address City/State/ZIP Code Phon e Number [facility] [address] [place] [address] [facility] LABS (ABNORMAL) Lipid panel reflex to direct LDL (02/06/2014 5:57 AM CDT) P athologist Signature Cholesterol 126 <200 mg/dL [facility] LABS Comment: LDL Cholesterol is the primary guide to therapy. The NCEP recommends further evaluation of: patients with cholesterol greater than 200 mg/dL if additional risk facto rs are present, cholesterol greater than 240 mg/dL, triglycerides greater than 1 50 mg/dL, or HDL less than 40 mg/dL. Triglycerides 100 0 - 150 mg/dL [facility] ITY [place] LABS HDL Cholesterol 35 (L) >40 mg/dL [facility] LABS LDL Cholesterol Calculated 71 0 - 129 mg/dL [facility] LABS Comment: LDL Cholesterol is the primary guide to therapy: LDL-cholesterol goal in high risk patients is <100 mg/dL and in very high risk patients is <70 mg/dL. VLDL-Cholesterol 20 0 - 30 mg/dL [facility] Cholesterol/HDL Ratio 3.6 0.0 - 5.0 [facility] Specimen Anatomical Collection Method Collection Time Receive d Time (Source) Location / / Volume Laterality Blood specimen 02/06/2014 5:57 AM 014 6:03 (specimen) CDT AM CDT Omaira Chavez PA-C LAB - BLOOD ORDERABLES Performing Organization Address City/State/ZIP Code Phon e Number [facility] [address] LABS Tacrolimus level (02/06/2014 5:57 AM CDT) Patholo gist Method Time Signature Tacrolimus S Negative [facility] Last Dose [facility] LABS Tacrolimus 12.7 5.0 - [facility] Level 15.0 ug/L [facility] LABS Comment: Tacrolimus Reference Range Kidney [...] Phon e Number [facility] [address] [place] [address] [facility] LABS (ABNORMAL) Glucose by meter (02/06/2014 [...] (L) 13.3 - [facility] 17.7 g/dL [place] LABS Specimen Anatomical Collection Method Collection Time Receive d Time (Source) Location / / Volume Laterality Blood specimen 02/06/2014 1:02 AM 014 1:11 (specimen) CDT AM CDT Deysi Alicea MD LAB - BLOOD ORDERABLES Performing Organization Address City/State/ZIP Code Phon e Number [facility] [address] [place], [place] [phone] [place] [address] LABS (ABNORMAL) Glucose by meter (02/05/2014 10:23 PM CDT) P athologist Signature Glucose 254 (H) 60 - 99 POINT OF CARE mg/dL TEST, GLUCOSE Specimen Anatomical Collection Method Collection Time Receive d Time (Source) Location / / Volume Laterality 02/05/2014 10:23 02/05/2014 PM CDT 10:25 PM CDT Migel Merchant MD LAB - BEAKER POCT Performing Organization Address City/[facility] Code Phon e Number [facility]V POINT OF CARE TEST, GLUCOSE POINT OF CARE TEST, GLUCOSE Heparin 10a Level (02/05/2014 7:32 PM CDT) P athologist Signature Heparin 10A 0.64 IU/mL [facility] LABS Comment: Therapeutic Range: ?? UFH: [...] Address City/State/ZIP Code Phon e Number [address] [address] [facility] LABS (ABNORMAL) Glucose by meter (02/05/2014 [...] Signature INR 1.24 (H) 0.86 - 1.14 [facility] LABS Specimen Anatomical Collection Method Collection Time Receive d Time (Source) Location / / Volume Laterality Blood specimen 02/05/2014 12:04 4 (specimen) PM CDT 12:10 PM CDT Teresa Wright [facility] LAB - BLOOD ORDERABLES Performing Organization Address City/[facility]/ZIP Code Phon e Number [address] LABS (ABNORMAL) CBC with platelets (02/05/2014 12:04 PM CDT) Patholo gist Method Time Signature WBC 7.4 4.0 - 11.0 [facility] 10e9/L [facility] LABS RBC Count 3.31 (L) 4.4 - 5.9 [facility] 10e12/L [facility] LABS Hemoglobin 10.3 (L) 13.3 - [facility] 17.7 g/dL [facility] LABS Hematocrit 31.0 (L) 40.0 - [facility] 53.0 % [facility] LABS MCV 94 78 - 100 [facility] fl [facility] LABS MCH 31.1 26.5 - [facility] 33.0 pg [facility] LABS MCHC 33.2 31.5 - [facility] 36.5 g/dL [facility] LABS RDW 14.7 10.0 - [facility] 15.0 % [facility] LABS Platelet Count 91 (L) 150 - 450 [facility] 10e9/L [facility] LABS Specimen Anatomical Collection Method Collection Time Receive d Time (Source) Location / / Volume Laterality Blood specimen 02/05/2014 12:04 4 (specimen) PM CDT 12:10 PM CDT Omaira Chavez PA-C LAB - BLOOD ORDERABLES Performing Organization Address City/[facility]/ZIP Code Phon e Number [facility] [place] [address] [address] [facility] LABS (ABNORMAL) Glucose by meter (02/05/2014 [...] LAB - BEAJ POCT Performing Organization Address City/[facility]/ZIP Code [...] LAB - BEAJ POCT Performing Organization Address City/[facility]/ZIP Code [...] Sodium 143 133 - 144 [facility] mmol/L [facility] LABS Potassium 4.3 3.4 - 5.3 [facility] mmol/L [facility] LABS Chloride 107 94 - 109 [facility] mmol/L [facility] LABS Carbon Dioxide 25 20 - 32 [facility] mmol/L [facility] LABS Anion Gap 10 6 - 17 [facility] mmol/L [facility] LABS Glucose 123 (H) 60 - 99 [facility] mg/dL [facility] LABS Urea Nitrogen 66 (H) 7 - 30 [facility] mg/dL [facility] LABS Creatinine 4.77 (H) 0.66 - [facility] 1.25 mg/dL [facility] LABS GFR Estimate 12 (L) >60 [facility] mL/min/1.7 [place] [facility] LABS GFR Estimate If 15 (L) >60 [facility] Black mL/min/1.7 [place] m2 [facility]AMP[facility] LABS Calcium 9.4 8.5 - 10.4 [facility] mg/dL [facility] LABS Specimen Anatomical Collection Method Collection Time Receive d Time (Source) Location / / Volume Laterality Blood specimen 02/05/2014 7:02 AM 014 7:05 (specimen) CDT AM CDT Omaira Chavez PA-C LAB - BLOOD ORDERABLES Performing Organization Address City/[facility]/ZIP Code Phon e Number [address] LABS (ABNORMAL) Phosphorus (02/05/2014 7:02 AM [...] Address City/[facility]/ZIP Code Phon e Number [address] [facility] Magnesium (02/05/2014 7:02 AM CDT) P athologist Signature Magnesium 2.0 1.6 - 2.3 [facility] mg/dL [place] LABS Specimen Anatomical Collection Method Collection Time Receive d Time (Source) Location / / Volume Laterality Blood specimen 02/05/2014 7:02 AM 014 7:05 (specimen) CDT AM CDT Omaira Chavez PA-C LAB - BLOOD ORDERABLES Performing Organization Address City/State/ZIP Code Phon e Number [facility] [address] [place] [address] [facility] LABS (ABNORMAL) CBC with platelets differential (02/05/2014 7:02 AM CDT) Patholo gist Method Time Signature WBC 8.9 4.0 - [facility] 11.0 [facility] 10e9/L [place] LABS RBC Count 3.20 (L) 4.4 - 5.9 [facility] 10e12/L [facility] LABS Hemoglobin 9.7 (L) 13.3 - [facility] 17.7 g/dL [facility] LABS Hematocrit 30.0 (L) 40.0 - [facility] 53.0 % [facility] LABS MCV 94 78 - 100 [facility] fl [facility] LABS MCH 30.3 26.5 - [facility] 33.0 pg [facility] LABS MCHC 32.3 31.5 - [facility] 36.5 g/dL [facility] LABS RDW 14.6 10.0 - [facility] 15.0 % [facility] LABS Platelet Count 96 (L) 150 - 450 [facility] 10e9/L [facility] LABS Diff Method Automated [facility] Method [facility] LAB[facility] % Neutrophils 90.2 % [facility] LABS % Lymphocytes 4.4 % [facility] % Monocytes 5.2 % [facility] % Eosinophils 0.0 % [facility] % Basophils 0.0 % [facility] % Immature 0.2 % [facility] Granulocytes [facility] LABS Absolute 8.1 1.6 - 8.3 [facility] Neutrophil 10e9/L [facility] LABS Absolute 0.4 (L) 0.8 - 5.3 [facility] Lymphocytes 10e9/L [facility] LABS Absolute 0.5 0.0 - 1.3 [facility] Monocytes 10e9/L [facility] Absolute 0.0 0.0 - 0.7 [facility] Eosinophils 10e9/L [facility] Absolute 0.0 0.0 - 0.2 [facility] Basophils 10e9/L [facility] Abs Immature 0.0 0 - 0.4 [facility] Granulocytes 10e9/L [facility] Specimen Anatomical Collection Method Collection Time Receive d Time (Source) Location / / Volume Laterality Blood specimen 02/05/2014 7:02 AM 014 7:05 (specimen) CDT AM CDT Omaira Chavez PA-C LAB - BLOOD ORDERABLES Performing Organization Address City/State/ZIP Code Phon e Number [facility] [address] LABS (ABNORMAL) Parathormone intact (02/05/2014 7:02 AM CDT) Patholo gist Method Time Signature Parathyroid 362 (H) 12 - 72 [facility] Hormone Intact pg/mL [facility] Specimen Anatomical Collection Method Collection Time Receive d Time (Source) Location / / Volume Laterality Blood specimen 02/05/2014 7:02 AM 014 7:05 (specimen) CDT AM CDT Sina Robison MD LAB - BLOOD ORDERABLES Performing Organization Address City/State/ZIP Code Phon e Number [address] LABS (ABNORMAL) Ferritin (02/05/2014 7:02 AM CDT) P athologist Signature Ferritin 932 (H) 20 - 300 [facility] ng/mL [place] LABS Specimen Anatomical Collection Method Collection Time Receive d Time (Source) Location / / Volume Laterality Blood specimen 02/05/2014 7:02 AM 014 7:05 (specimen) CDT AM CDT Sina Robison MD LAB - BLOOD ORDERABLES Performing Organization Address City/[facility]/ZIP Code Phon e Number [address] LABS (ABNORMAL) Iron and iron binding capacity (02/05/2014 7:02 AM CDT) Analysis Performed At Patho logist Time Signature Iron 119 35 - 180 [facility] ug/dL [facility] LABS Iron Binding 207 (L) 240 - 430 [facility] Cap ug/dL [facility] LABS Iron Saturation 58 (H) 15 - 46 % [facility] Index [facility] LABS Specimen Anatomical Collection Method Collection Time Receive d Time (Source) Location / / Volume Laterality Blood specimen 02/05/2014 7:02 AM 014 7:05 (specimen) CDT AM CDT Sina Robison MD LAB - BLOOD ORDERABLES Performing Organization Address City/State/ZIP Code Phon e Number [facility] [address] [place] [address] [facility] LABS (ABNORMAL) Glucose by meter (02/05/2014 6:59 AM CDT) P athologist Signature Glucose 123 (H) 60 - 99 POINT OF CARE mg/dL TEST, GLUCOSE Specimen Anatomical Collection Method Collection Time Receive d Time (Source) Location / / Volume Laterality 02/05/2014 6:59 AM 4 7:05 CDT AM CDT Migel LARES - ROBERT POCT Performing Organization Address City/[facility]/ZIP Code [...] CDT Migel JONES POCT Performing Organization Address City/[facility]/ZIP Code [...] LAB - BEAJ POCT Performing Organization Address City/[facility]/ZIP Code [...] LAB - BEAJ POCT Performing Organization Address City/[facility]/ZIP Code [...] AM 4 1:10 CDT AM CDT Migel JOENS POCT Performing Organization Address [facility] Phon e Number FV POINT OF CARE TEST, GLUCOSE POINT OF CARE TEST, GLUCOSE (ABNORMAL) Glucose by meter (02/05/2014 12:09 AM CDT) P athologist Signature Glucose 136 (H) 60 - 99 POINT OF CARE mg/dL TEST, GLUCOSE Specimen Anatomical Collection Method Collection Time Receive d Time (Source) Location / / Volume Laterality 02/05/2014 12:09 02/05/2014 AM CDT 12:15 AM CDT Migle LARES - ROBERT POCT Performing Organization Address [facility] Phon e Number FV POINT OF CARE TEST, GLUCOSE POINT OF CARE TEST, GLUCOSE EKG 12-lead, complete (02/04/2014 11:09 PM CDT) [facility] gist Method Time Signature Interpretation ECG Click View RADIOLOGY Image link RESULTS to view waveform and result Specimen (Source) Anatomical Collection Method Collection Time Re ceived Time Location / / Volume Laterality 02/04/2014 11:09 PM CDT Chemo Carr MD ECG ORDERABLES Performing Organization Address [facility] Phon e Number RADIOLOGY RESULTS (ABNORMAL) Glucose by meter (02/04/2014 10:56 PM CDT) P athologist Signature Glucose 161 (H) 60 - 99 POINT OF CARE mg/dL TEST, GLUCOSE Specimen Anatomical Collection Method Collection Time Receive d Time (Source) Location / / Volume Laterality 02/04/2014 10:56 02/04/2014 PM CDT 11:00 PM CDT Migel JONES POCT Performing Organization Address [facility] Phon e Number FV POINT [...] LAB - BEAJ POCT Performing Organization Address City/[facility]/ZIP Code [...] LARES - BEAKER POCT Performing Organization Address City/[facility]/ZIP Code Phon e Number FV POINT OF CARE TEST, GLUCOSE POINT OF CARE TEST, GLUCOSE Troponin I (02/04/2014 7:10 PM CDT) athologist Signature Troponin I 0.016 0.000 - [facility] 0.034 ug/L CAMPUS LABS Specimen Anatomical Collection Method Collection Time Receive d Time (Source) Location / / Volume Laterality Blood specimen 02/04/2014 7:10 PM 014 7:23 (specimen) CDT PM CDT Adeline Diaz MD LAB - BLOOD ORDERABLES Performing Organization Address City/State/ZIP Code Phon e Number [address] [address] [facility] LABS (ABNORMAL) Glucose by meter (02/04/2014 7:01 PM CDT) P athologist Signature Glucose 157 (H) 60 - 99 POINT OF CARE mg/dL TEST, GLUCOSE Specimen Anatomical Collection Method Collection Time Receive d Time (Source) Location / / Volume Laterality 02/04/2014 7:01 PM 4 7:05 CDT PM CDT Migel Merchant MD LAB - BEAKER POCT Performing Organization Address [facility] Phon e Number FV POINT [...] LAB - BEAKER POCT Performing Organization Address [facility] Phon e Number FV POINT [...] LAB - BEAKER POCT Performing Organization Address [facility] Phon e Number FV POINT [...] LAB - BEAJ POCT Performing Organization Address [facility] Phon e Number FV POINT [...] LAB - BEAKER POCT Performing Organization Address [facility] Phon e Number FV POINT [...] LAB - BEAJ POCT Performing Organization Address [facility] Phon e Number FV POINT OF CARE TEST, GLUCOSE POINT OF CARE TEST, GLUCOSE Troponin I (02/04/2014 12:42 PM CDT) athologist Signature Troponin I 0.025 0.000 - [facility] 0.034 ug/L [place] LABS Specimen Anatomical Collection Method Collection Time Receive d Time (Source) Location / / Volume Laterality Blood specimen 02/04/2014 12:42 4 (specimen) PM CDT 12:45 PM CDT Adeline Diaz MD LAB - BLOOD ORDERABLES Performing Organization Address City/State/ZIP Code Phon e Number [facility] [address] [place] [address] [facility] LABS (ABNORMAL) Glucose by meter (02/04/2014 [...] CDT Migel JONES POCT Performing Organization Address City/State/[facility] [...] 8:09 AM 4 8:16 CDT AM CDT iMgel LARES - ROBERT [...] EKG 12-lead, complete (02/04/2014 7:03 AM CDT) [facility] Method Time Signature Interpretation ECG Click [...] Signature Troponin I ES <0.012 0.000 - [facility] 0.034 ug/L CAMPUS LABS Specimen Anatomical Collection Method Collection Time Receive d Time (Source) Location / / Volume Laterality 02/04/2014 5:49 AM 4 5:51 CDT AM CDT Caitlin Owens MD LAB - BLOOD ORDERABLES Performing Organization Address City/State/ZIP Code Phon e Number [id number] [place] [address] LABS (ABNORMAL) Basic metabolic panel (02/04/2014 5:49 AM CDT) [facility] Method Time Signature Sodium 142 133 - 144 [facility] mmol/L [facility] LABS Potassium 4.9 3.4 - 5.3 [facility] mmol/L [facility] LABS Chloride 107 94 - 109 [facility] mmol/L [facility] LABS Carbon Dioxide 23 20 - 32 [facility] mmol/L [facility] LABS Anion Gap 12 6 - 17 [facility] mmol/L [facility] LABS Glucose 151 (H) 60 - 99 [facility] mg/dL [facility] LABS Urea Nitrogen 57 (H) 7 - 30 [facility] mg/dL [facility] LABS Creatinine 5.94 (H) 0.66 - [facility] 1.25 mg/dL [facility] LABS GFR Estimate 10 (L) >60 [facility] mL/min/1.7 [place] m2 CAMPUS LABS GFR Estimate If 12 (L) >60 [facility] Black mL/min/1.7 [place] m2 CAMPUS LABS Calcium 9.4 8.5 - 10.4 [facility] mg/dL [facility] LABS Specimen Anatomical Collection Method Collection Time Receive d Time (Source) Location / / Volume Laterality Blood specimen 02/04/2014 5:49 AM 014 5:51 (specimen) CDT AM CDT Omaira Chavez PA-C LAB - BLOOD ORDERABLES Performing Organization Address City/[facility]/ZIP Code Phon e Number [address] LABS (ABNORMAL) Phosphorus (02/04/2014 5:49 AM CDT) P athologist Signature Phosphorus 6.3 (H) 2.5 - 4.5 [facility] mg/dL [place] LABS Specimen Anatomical Collection Method Collection Time Receive d Time (Source) Location / / Volume Laterality Blood specimen 02/04/2014 5:49 AM 014 5:51 (specimen) CDT AM CDT Omaira Chavez PA-C LAB - BLOOD ORDERABLES Performing Organization Address City/State/ZIP Code Phon e Number [facility] [address] LABS Magnesium (02/04/2014 5:49 AM CDT) P athologist Signature Magnesium 2.1 1.6 - 2.3 [facility] mg/dL [place] LABS Specimen Anatomical Collection Method Collection Time Receive d Time (Source) Location / / Volume Laterality Blood specimen 02/04/2014 5:49 AM 014 5:51 (specimen) CDT AM CDT Omaira Chavez PA-C LAB - BLOOD ORDERABLES Performing Organization Address City/State/ZIP Code Phon e Number [facility] [address] [place] [address] [facility] LABS (ABNORMAL) CBC with platelets differential (02/04/2014 5:49 AM CDT) [facility] gist Method Time Signature WBC 13.8 (H) 4.0 - [facility] 11.0 [facility] 10e9/L CAMPUS LABS RBC Count 3.10 (L) 4.4 - 5.9 [facility] 10e12/L [facility] LABS Hemoglobin 9.5 (L) 13.3 - [facility] 17.7 g/dL [facility] LABS Hematocrit 28.7 (L) 40.0 - [facility] 53.0 % [facility] LABS MCV 93 78 - 100 [facility] fl [facility] LABS MCH 30.6 26.5 - [facility] 33.0 pg [facility] LABS MCHC 33.1 31.5 - [facility] 36.5 g/dL [facility] LABS RDW 14.6 10.0 - [facility] 15.0 % [facility] LABS Platelet Count 91 (L) 150 - 450 [facility] 10e9/L [facility] LABS Diff Method Automated [facility] Method [facility] LABS % Neutrophils 95.8 % [facility] LABS % Lymphocytes 1.2 % [facility] LABS % Monocytes 2.8 % [facility] LABS % Eosinophils 0.0 % [facility] LABS % Basophils 0.0 % [facility] LABS % Immature 0.2 % [facility] Granulocytes [facility] LABS Absolute 13.2 (H) 1.6 - 8.3 [facility] Neutrophil 10e9/L [facility] LABS Absolute 0.2 (L) 0.8 - 5.3 [facility] Lymphocytes 10e9/L [facility] LABS Absolute 0.4 0.0 - 1.3 [facility] Monocytes 10e9/L [facility] LABS Absolute 0.0 0.0 - 0.7 [facility] Eosinophils 10e9/L [facility] LABS Absolute 0.0 0.0 - 0.2 [facility] Basophils 10e9/L [facility] LABS Abs Immature 0.0 0 - 0.4 [facility] Granulocytes 10e9/L [facility] LABS Specimen Anatomical Collection Method Collection Time Receive d Time (Source) Location / / Volume Laterality Blood specimen 02/04/2014 5:49 AM 014 5:51 (specimen) CDT AM CDT Omaira Chavez PA-C LAB - BLOOD ORDERABLES Performing Organization Address City/State/ZIP Code Phon e Number [address] [address] [facility] LABS (ABNORMAL) Glucose by meter (02/04/2014 [...] LARES - BEAJ POCT Performing Organization Address City/[facility]/ZIP Code [...] LAB - BEAJ POCT Performing Organization Address City/[facility]/ZIP Code [...] 3.4 - 5.3 [facility] mmol/L CAMPUS LABS Specimen Anatomical Collection Method Collection Time Receive d Time (Source) Location / / Volume Laterality Blood specimen 02/03/2014 10:16 4 (specimen) PM CDT 10:19 PM CDT Caitlin Owens MD LAB - BLOOD ORDERABLES Performing Organization Address City/State/ZIP Code Phon e Number [facility] [address] [place], [place] [id number] [place] [address] LABS (ABNORMAL) Hemoglobin (02/03/2014 10:16 PM CDT) P athologist Signature Hemoglobin 9.4 (L) 13.3 - 17.7 [facility] g/dL [place] LABS Specimen Anatomical Collection Method Collection Time Receive d Time (Source) Location / / Volume Laterality Blood specimen 02/03/2014 10:16 4 (specimen) PM CDT 10:19 PM CDT Caitlin Owens MD LAB - BLOOD ORDERABLES Performing Organization Address City/[facility]/ZIP Code Phon e Number [address] [address] [facility] LABS (ABNORMAL) Glucose by meter (02/03/2014 9:55 PM CDT) athologist Signature Glucose 167 (H) 60 - 99 POINT OF CARE mg/dL TEST, GLUCOSE Specimen Anatomical Collection Method Collection Time Receive d Time (Source) Location / / Volume Laterality 02/03/2014 9:55 PM 4 CDT 10:00 PM CDT Migel LARES - ROBERT POCT Performing Organization Address City/[facility]/ZIP Code [...] 3.4 - 5.3 [facility] mmol/L CAMPUS LABS Specimen Anatomical Collection Method Collection Time Receive d Time (Source) Location / / Volume Laterality Blood specimen 02/03/2014 6:52 PM 014 6:53 (specimen) CDT PM CDT Caitlin Owens MD LAB - BLOOD ORDERABLES Performing Organization Address City/[facility]/ZIP Code Phon e Number [facility] [address] LABS (ABNORMAL) Hemoglobin (02/03/2014 6:52 PM CDT) athologist Signature Hemoglobin 9.6 (L) 13.3 - 17.7 [facility] g/dL CAMPUS LABS Specimen Anatomical Collection Method Collection Time Receive d Time (Source) Location / / Volume Laterality Blood specimen 02/03/2014 6:52 PM 014 6:53 (specimen) CDT PM CDT Caitlin Owens MD LAB - BLOOD ORDERABLES Performing Organization Address City/[facility]/ZIP Code Phon e Number [facility] [address] LABS (ABNORMAL) Glucose by meter (02/03/2014 6:00 PM CDT) athologist Signature Glucose 140 (H) 60 - 99 POINT OF CARE mg/dL TEST, GLUCOSE Specimen Anatomical Collection Method Collection Time Receive d Time (Source) Location / / Volume Laterality 02/03/2014 6:00 PM 4 6:05 CDT PM CDT Migel Merchant MD LAB - BEAJ POCT Performing Organization Address [facility]/ZIP Code Phon e Number FV POINT [...] LAB - ROBERT POCT Performing Organization Address [facility] Phon e Number FV POINT [...] LAB - BEAJ POCT Performing Organization Address [facility] Phon e Number FV POINT [...] LAB - BEAJ POCT Performing Organization Address [facility] Phon e Number FV POINT OF CARE TEST, GLUCOSE POINT OF CARE TEST, GLUCOSE Potassium (02/03/2014 1:41 PM CDT) P athologist Signature Potassium 4.7 3.4 - 5.3 [facility] mmol/L CAMPUS LABS Specimen Anatomical Collection Method Collection Time Receive d Time (Source) Location / / Volume Laterality Blood specimen 02/03/2014 1:41 PM 014 1:43 (specimen) CDT PM CDT Caitlin Owens MD LAB - BLOOD ORDERABLES Performing Organization Address City/[facility]/ZIP Code Phon e Number [phone] [place] [address] LABS (ABNORMAL) Hemoglobin (02/03/2014 1:41 PM CDT) athologist Signature Hemoglobin 9.8 (L) 13.3 - 17.7 [facility] g/dL CAMPUS LABS Specimen Anatomical Collection Method Collection Time Receive d Time (Source) Location / / Volume Laterality Blood specimen 02/03/2014 1:41 PM 014 1:43 (specimen) CDT PM CDT Caitlin Owens MD LAB - BLOOD ORDERABLES Performing Organization Address [facility] Code Phon e Number [phone] [place] [address] LABS (ABNORMAL) Glucose by meter (02/03/2014 1:10 [...] 3.4 - 5.3 [facility] mmol/L CAMPUS LABS Specimen Anatomical Collection Method Collection Time Receive d Time (Source) Location / / Volume Laterality Blood specimen 02/03/2014 10:11 4 (specimen) AM CDT 10:23 AM CDT Caitlin Owens MD LAB - BLOOD ORDERABLES Performing Organization Address City/State/ZIP Code Phon e Number [facility] [address] LABS (ABNORMAL) Hemoglobin (02/03/2014 10:11 AM CDT) P athologist Signature Hemoglobin 9.7 (L) 13.3 - 17.7 [facility] g/dL CAMPUS LABS Specimen Anatomical Collection Method Collection Time Receive d Time (Source) Location / / Volume Laterality Blood specimen 02/03/2014 10:11 4 (specimen) AM CDT 10:23 AM CDT Caitlin Owens MD LAB - BLOOD ORDERABLES Performing Organization Address City/State/ZIP Code Phon e Number [facility] [address] LABS (ABNORMAL) Glucose by meter (02/03/2014 [...] Basic metabolic panel (02/03/2014 5:38 AM CDT) [facility] gist Method Time Signature Sodium 141 [...] Address City/State/ZIP Code Phon e Number [address] [address] [facility] LABS (ABNORMAL) Phosphorus [...] e Number [facility] [address] LABS Magnesium (02/03/2014 5:38 AM CDT) P athologist Signature Magnesium 2.0 1.6 - 2.3 [facility] mg/dL [place] LABS Specimen Anatomical Collection Method Collection Time Receive d Time (Source) Location / / Volume Laterality Blood specimen 02/03/2014 5:38 AM 014 5:40 (specimen) CDT AM CDT Omaira Chavez PA-C LAB - BLOOD ORDERABLES Performing Organization Address City/[facility]/ZIP Code Phon e Number [facility] [address] LABS (ABNORMAL) CBC with platelets differential (02/03/2014 5:38 AM CDT) Patholo gist Method Time Signature WBC 13.2 (H) 4.0 - [facility] 11.0 [facility] 10e9/L [place] LABS RBC Count 3.20 (L) 4.4 - 5.9 [facility] 10e12/L [facility] LABS Hemoglobin 9.9 (L) 13.3 - [facility] 17.7 g/dL [facility] LABS Hematocrit 30.2 (L) 40.0 - [facility] 53.0 % [facility] LABS MCV 94 78 - 100 [facility] fl [facility] LABS MCH 30.9 26.5 - [facility] 33.0 pg [facility] LABS MCHC 32.8 31.5 - [facility] 36.5 g/dL [facility] LABS RDW 14.5 10.0 - [facility] 15.0 % [facility] LABS Platelet Count 108 (L) 150 - 450 [facility] 10e9/L [facility] LABS Diff Method Automated [facility] Method [facility] LABS % Neutrophils 96.9 % [facility] LABS % Lymphocytes 0.7 % [facility] LABS % Monocytes 2.1 % [facility] LABS % Eosinophils 0.0 % [facility] [...] 0.0 - 0.2 [facility] Basophils 10e9/L [place] [facility] LABS Abs Immature 0.0 0 - 0.4 [facility] Granulocytes 10e9/L [facility] LABS Specimen Anatomical Collection Method Collection Time Receive d Time (Source) Location / / Volume Laterality Blood specimen 02/03/2014 5:38 AM 014 5:40 (specimen) CDT AM CDT Omaira Chavez PA-C LAB - BLOOD ORDERABLES Performing Organization Address City/State/ZIP Code Phon e Number [address] LABS (ABNORMAL) Hemoglobin A1c (02/03/2014 5:38 AM CDT) Analysis Performed At Patho logist Time Signature Hemoglobin A1C 6.2 (H) 4.3 - 6.0 [facility] % [facility] LABS Specimen Anatomical Collection Method Collection Time Receive d Time (Source) Location / / Volume Laterality Blood specimen 02/03/2014 5:38 AM 014 5:40 (specimen) CDT AM CDT Caitlin Owens MD LAB - BLOOD ORDERABLES Performing Organization Address City/State/ZIP Code Phon e Number [address] LABS (ABNORMAL) Glucose by meter (02/03/2014 [...] 3.4 - 5.3 [facility] mmol/L [place] LABS Specimen Anatomical Collection Method Collection Time Receive d Time (Source) Location / / Volume Laterality Blood specimen 02/03/2014 1:18 AM 014 1:20 (specimen) CDT AM CDT Caitlin Owens MD LAB - BLOOD ORDERABLES Performing Organization Address City/[facility]/ZIP Code Phon e Number [address] LABS (ABNORMAL) Hemoglobin (02/03/2014 1:18 AM CDT) P athologist Signature Hemoglobin 9.8 (L) 13.3 - 17.7 [facility] g/dL [place] LABS Specimen Anatomical Collection Method Collection Time Receive d Time (Source) Location / / Volume Laterality Blood specimen 02/03/2014 1:18 AM 014 1:20 (specimen) CDT AM CDT Caitlin Owens MD LAB - BLOOD ORDERABLES Performing Organization Address City/[facility]/ZIP Code Phon e Number [address] LABS (ABNORMAL) Glucose by meter (02/03/2014 [...] 10:50 02/03/2014 PM CDT 12:15 AM CDT Miegl Merchant MD LAB - BEAKER POCT Performing Organization Address City/State/ZIP Code Phon e Number FV POINT OF CARE TEST, GLUCOSE POINT OF CARE TEST, GLUCOSE Phosphorus (02/02/2014 10:50 PM CDT) P athologist Signature Phosphorus 4.4 2.5 - 4.5 [facility] mg/dL CAMPUS LABS Specimen Anatomical Collection Method Collection Time Receive d Time (Source) Location / / Volume Laterality Blood specimen 02/02/2014 10:50 201 4 (specimen) PM CDT 11:06 PM CDT Caitlin Owens MD LAB - BLOOD ORDERABLES Performing Organization Address City/[facility]/ZIP Code Phon e Number [facility] [address] LABS Magnesium (02/02/2014 10:50 PM CDT) athologist Signature Magnesium 1.8 1.6 - 2.3 [facility] mg/dL [place] LABS Specimen Anatomical Collection Method Collection Time Receive d Time (Source) Location / / Volume Laterality Blood specimen 02/02/2014 10:50 201 4 (specimen) PM CDT 11:06 PM CDT Caitlin Owens MD LAB - BLOOD ORDERABLES Performing Organization Address City/[facility]/ZIP Code Phon e Number [facility] [address] LABS (ABNORMAL) Basic metabolic panel (02/02/2014 10:50 PM CDT) [facility] gist Method Time Signature Sodium 138 133 - 144 [facility] mmol/L [facility] LABS Potassium 4.5 3.4 - 5.3 [facility] mmol/L [facility] LABS Chloride 104 94 - 109 [facility] mmol/L [facility] LABS Carbon Dioxide 25 20 - 32 [facility] mmol/L [facility] LABS Anion Gap 10 6 - 17 [facility] mmol/L [facility] LABS Glucose 134 (H) 60 - 99 [facility] mg/dL [facility] LABS Urea Nitrogen 44 (H) 7 - 30 [facility] mg/dL [facility] LABS Creatinine 6.14 (H) 0.66 - [facility] 1.25 mg/dL [facility] LABS GFR Estimate 9 (L) >60 [facility] mL/min/1.7 [place] [address] CAMPUS LABS GFR Estimate If 11 (L) >60 [facility] Black mL/min/1.7 [place] [address] CAMPUS LABS Calcium 8.8 8.5 - 10.4 [facility] mg/dL [facility] LABS Specimen Anatomical Collection Method Collection Time Receive d Time (Source) Location / / Volume Laterality Blood specimen 02/02/2014 10:50 4 (specimen) PM CDT 11:06 PM CDT Caitlin Owens MD LAB - BLOOD ORDERABLES Performing Organization Address City/State/ZIP Code Phon e Number [facility] [address] [place] [address] [place] [facility] LAB[facility] (ABNORMAL) CBC with platelets differential (02/02/2014 10:50 PM CDT) [facility] gist Method Time Signature WBC 8.2 4.0 - [facility] 11.0 [facility] 10e9/L [place] LABS RBC Count 3.34 (L) 4.4 - 5.9 [facility] 10e12/L [facility] LABS Hemoglobin 10.3 (L) 13.3 - [facility] 17.7 g/dL [facility] LABS Hematocrit 30.9 (L) 40.0 - [facility] 53.0 % [facility] LABS MCV 93 78 - 100 [facility] fl [facility] LABS MCH 30.8 26.5 - [facility] 33.0 pg [facility] LABS MCHC 33.3 31.5 - [facility] 36.5 g/dL [facility] LABS RDW 14.3 10.0 - [facility] 15.0 % [facility] LABS Platelet Count 79 (L) 150 - 450 [facility] 10e9/L [facility] LABS Diff Method Automated [facility] Method [facility] LABS % Neutrophils 96.7 % [facility] LABS % Lymphocytes 1.6 % [facility] % Monocytes 1.2 % [facility] % Eosinophils 0.4 % [facility] % Basophils 0.0 % [facility] LABS % Immature 0.1 % [facility] Granulocytes [facility] LABS Absolute 7.9 1.6 - 8.3 [facility] Neutrophil 10e9/L [facility] LABS Absolute 0.1 (L) 0.8 - 5.3 [facility] Lymphocytes 10e9/L [facility] LABS Absolute 0.1 0.0 - 1.3 [facility] Monocytes 10e9/L [facility] LABS Absolute 0.0 0.0 - 0.7 [facility] Eosinophils 10e9/L [facility] LABS Absolute 0.0 0.0 - 0.2 [facility] Basophils 10e9/L [facility] LABS Abs Immature 0.0 0 - 0.4 [facility] Granulocytes 10e9/L [facility] LABS Specimen Anatomical Collection Method Collection Time Receive d Time (Source) Location / / Volume Laterality Blood specimen 02/02/2014 10:50 4 (specimen) PM CDT 11:06 PM CDT Caitlin Owens MD LAB - BLOOD ORDERABLES Performing Organization Address City/State/ZIP Code Phon e Number [facility] [address] LABS (ABNORMAL) VENOUS PANEL (02/02/2014 10:09 PM CDT) [facility] Method Time Signature Ph Venous 7.31 (L) 7.32 - [facility] 7.43 pH [facility] LABS PCO2 Venous 52 (H) 40 - 50 [facility] mm Hg [facility] LABS PO2 Venous 34 25 - 47 [facility] mm Hg [facility] LABS Bicarbonate 26 21 - 28 [facility] Venous mmol/L [facility] LABS Base Deficit 0.3 mmol/L [facility] Venous [facility] LABS Comment: Reference range: -7.7 to 1.9 FIO2 45 [facility] LABS Sodium 137 133 - 144 mmol/L [facility] LABS Potassium 4.4 3.4 - 5.3 mmol/L [facility] LABS Hemoglobin 10.0 (L) 13.3 - 17.7 g/dL [facility] LABS Glucose 116 (H) 60 - 99 mg/dL [facility] LABS Calcium Ionized Whole Blood 4.8 4.4 - 5.2 mg/dL [facility] LABS Specimen Anatomical Collection Method Collection Time Receive d Time (Source) Location / / Volume Laterality 02/02/2014 10:09 02/02/2014 PM CDT 10:14 PM CDT Migel Merchant MD LAB - BLOOD ORDERABLES Performing Organization Address City/[facility]/ZIP Code Phon e Number [facility] [address] LABS (ABNORMAL) Glucose by meter (02/02/2014 9:24 PM CDT) P athologist Signature Glucose 129 (H) 60 - 99 POINT OF CARE mg/dL TEST, GLUCOSE Specimen Anatomical Collection Method Collection Time Receive d Time (Source) Location / / Volume Laterality 02/02/2014 9:24 PM 4 9:31 CDT PM CDT Migel Merchant MD LAB - ROBERT POCT Performing Organization Address City/[facility] Phon e Number FV POINT [...] LARES - BEAJ POCT Performing Organization Address City/[facility] Phon e Number FV POINT OF CARE TEST, GLUCOSE POINT OF CARE TEST, GLUCOSE (ABNORMAL) VENOUS PANEL (02/02/2014 6:40 PM CDT) P athologist Signature Ph Venous 7.35 7.32 - [facility] 7.43 pH [facility] LABS PCO2 Venous 50 40 - 50 mm [facility] Hg [facility] LABS PO2 Venous 46 25 - 47 mm [facility] Hg [facility] LABS Bicarbonate 28 21 - 28 [facility] Venous mmol/L [facility] LABS Base Excess 1.8 mmol/L [facility] Venous [facility] LABS Comment: Reference range: -7.7 to 1.9 FIO2 100% [facility] LABS Sodium 141 133 - 144 mmol/L [facility] LABS Potassium 3.7 3.4 - 5.3 mmol/L [facility] LABS Hemoglobin 10.3 (L) 13.3 - 17.7 g/dL [facility] LABS Glucose 76 60 - 99 mg/dL [facility] LABS Calcium Ionized Whole Blood 4.8 4.4 - 5.2 mg/dL [facility] LABS Specimen Anatomical Collection Method Collection Time Receive d Time (Source) Location / / Volume Laterality 02/02/2014 6:40 PM 4 6:44 CDT PM CDT Migel Merchant MD LAB - BLOOD ORDERABLES Performing Organization Address City/State/ZIP Code Phon e Number [facility] [address] [place] [address] [facility] LABS Glucose by meter (02/02/2014 5:11 [...] LAB - BEAKER POCT Performing Organization Address [facility] Phon e Number FV POINT [...] MARYELLEN Blood component (02/02/2014 2:07 PM CDT) [facility] Method Time Signature Unit Number [id number] [facility] LABS Blood Red Blood [facility] Component Cells [facility] LABS Reduced Division 00 [facility] LABS Status of No longer [facility] Unit available [facility] 02/06/2014 HOSPITAL LAB 0300 Specimen Anatomical Collection Method Collection Time Receive d Time (Source) Location / / Volume Laterality 02/02/2014 2:07 PM 4 2:10 CDT PM CDT Caitlin Owens MD LABORATORY Performing Organization Address City/[facility]/ZIP Code Phon e Number [place] [address], [place] [address] [facility] LABS [facility] LAB Blood component (02/02/2014 2:07 PM CDT) [facility] Method Time Signature Unit Number [id number] [facility] LABS Blood Red Blood [facility] Component Cells [facility] LABS Reduced Division 00 [facility] LABS Status of No longer [facility] available [facility] 02/06/2014 HOSPITAL LAB 0300 Specimen Anatomical Collection Method Collection Time Receive d Time (Source) Location / / Volume Laterality 02/02/2014 2:07 PM 4 2:10 CDT PM CDT Caitlin Owens MD LABORATORY Performing Organization Address City/[facility]/ZIP Code Phon e Number [place] [address], [place] [address] HOSPITAL [facility] LABS [facility] LAB ABO/Rh type and screen (02/02/2014 2:07 PM CDT) Patholo gist Method Time Signature Units Ordered 2 [facility] LABS ABO A [facility] LABS RH(D) Pos [facility] LABS Antibody Neg [facility] Screen [facility] LABS Test Valid [facility] Only At [facility] BLOOD BANK Center,[place] LAB w Hospital Specimen 02/05/2014 [facility] Expires [place] BLOOD BANK LAB Crossmatch Red Blood [facility] Cells [facility] LABS Specimen Anatomical Collection Method Collection Time Receive d Time (Source) Location / / Volume Laterality Blood specimen 02/02/2014 2:07 PM 014 2:10 (specimen) CDT PM CDT Caitlin Owens MD LAB - BLOOD BANK TEST ORDER Performing Organization Address City/State/ZIP Code Phon e Number [facility] [address] [place], [place] [id number] [place] [address] LABS [facility] BLOOD BANK LAB (ABNORMAL) Lipid Profile (02/02/2014 2:07 PM CDT) P athologist Signature Cholesterol 135 <200 mg/dL [facility] LABS Comment: LDL Cholesterol is the primary guide to therapy. The NCEP recommends further evaluation of: patients with cholesterol greater than 200 mg/dL if additional risk facto rs are present, cholesterol greater than 240 mg/dL, triglycerides greater than 1 50 mg/dL, or HDL less than 40 mg/dL. Triglycerides 124 0 - 150 mg/dL [facility] HDL Cholesterol 34 (L) >40 mg/dL [facility] [place] LABS LDL Cholesterol Calculated 77 0 - 129 mg/dL [facility] LABS Comment: LDL Cholesterol is the primary guide to therapy: LDL-cholesterol goal in high risk patients is <100 mg/dL and in very high risk patients is <70 mg/dL. VLDL-Cholesterol 25 0 - 30 mg/dL [facility] Cholesterol/HDL Ratio 4.0 0.0 - 5.0 [facility] LABS Specimen Anatomical Collection Method Collection Time Receive d Time (Source) Location / / Volume Laterality Blood specimen 02/02/2014 2:07 PM 014 2:08 (specimen) CDT PM CDT Caitlin Owens MD LAB - BLOOD ORDERABLES Performing Organization Address City/[facility]/ZIP Code Phon e Number [facility] [address] LABS (ABNORMAL) Hemoglobin A1c (02/02/2014 2:07 PM CDT) Analysis Performed At Patho logist Time Signature Hemoglobin A1C 6.2 (H) 4.3 - 6.0 [facility] Specimen Anatomical Collection Method Collection Time Receive d Time (Source) Location / / Volume Laterality Blood specimen 02/02/2014 2:07 PM 014 2:08 (specimen) CDT PM CDT Caitlin Owens MD LAB - BLOOD ORDERABLES Performing Organization Address City/[facility]/ZIP Code Phon e Number [facility] [address] LABS Hepatitis C antibody (02/02/2014 2:07 PM CDT) [facility] gist Method Time Signature Hepatitis C Negative NEG [facility] Antibody MICROBIOLOGY Specimen Anatomical Collection Method Collection Time Receive d Time (Source) Location / / Volume Laterality Blood specimen 02/02/2014 2:07 PM 014 2:08 (specimen) CDT PM CDT Caitlin Oewns MD LAB - BLOOD ORDERABLES Performing Organization Address City/[facility]/ZIP Code Phon e Number [facility] 500 [place], [place] [phone] [place] [address] MICROBIOLOGY Hepatitis B core antibody IgM (02/02/2014 2:07 PM CDT) [facility] gist Method Time Signature Hepatitis B Negative NEG [facility] Core IgM MICROBIOLOGY Specimen Anatomical Collection Method Collection Time Receive d Time (Source) Location / / Volume Laterality Blood specimen 02/02/2014 2:07 PM 014 2:08 (specimen) CDT PM CDT Caitlin Owens MD LAB - BLOOD ORDERABLES Performing Organization Address City/[facility]/ZIP Code Phon e Number [phone] [place] [address] MICROBIOLOGY Hepatitis B surface antigen (02/02/2014 2:07 PM CDT) [facility] gist Method Time Signature Hep B Surface Negative NEG [facility] Agn MICROBIOLOGY Specimen Anatomical Collection Method Collection Time Receive d Time (Source) Location / / Volume Laterality Blood specimen 02/02/2014 2:07 PM 2 014 2:08 (specimen) CDT PM CDT Caitlin Owens MD LAB - BLOOD ORDERABLES Performing Organization Address City/[facility]/ZIP Code Phon e Number [facility] [address] MICROBIOLOGY HIV Antigen Antibody Combo (02/02/2014 2:07 PM CDT) [facility] Method Time Signature HIV Antigen Nonreactive NR [facility] Antibody HIV-1 p24 Ag & HIV-1/HIV-2 Ab Not Detected [facility] LABS Specimen Anatomical Collection Method Collection Time Receive d Time (Source) Location / / Volume Laterality Blood specimen 02/02/2014 2:07 PM 2 014 2:08 (specimen) CDT PM CDT Caitlin Owens MD LAB - BLOOD ORDERABLES Performing Organization Address City/[facility]/ZIP Code Phon e Number [facility] [address] LABS EBV Capsid Antibody IgM (02/02/2014 2:07 PM CDT) [facility] Method [place] Signature EBV Capsid <0.2 0.0 - 0.8 [facility] Antibody IgM No detectable antibody. [facility] LABS Specimen Anatomical Collection Method Collection Time Receive d Time (Source) Location / / Volume Laterality Blood specimen 02/02/2014 2:07 PM 014 2:08 (specimen) CDT PM CDT Caitlin Owens MD LAB - BLOOD ORDERABLES Performing Organization Address City/[facility]/ZIP Code Phon e Number [facility] [address] LABS (ABNORMAL) EBV Capsid Antibody IgG (02/02/2014 2:07 PM CDT) [facility] Method [place] Signature EBV Capsid >8.0 0.0 - 0.8 [facility] Antibody IgG Positive, suggests recent or past exposure AI [place] () [place] LABS Specimen Anatomical Collection Method Collection Time Receive d Time (Source) Location / / Volume Laterality Blood specimen 02/02/2014 2:07 PM 014 2:08 (specimen) CDT PM CDT Caitlin Owens MD LAB - BLOOD ORDERABLES Performing Organization Address City/[facility]/ZIP Code Phon e Number [facility] [address] [place] [address] [facility] LABS CMV antibody IgM (02/02/2014 2:07 PM CDT) Analysis Performed At Patho logist Time Signature CMV Antibody <0.2 0.0 - 0.8 [facility] IgM Negative [facility] LABS Specimen Anatomical Collection Method Collection Time Receive d Time (Source) Location / / Volume Laterality Blood specimen 02/02/2014 2:07 PM 014 2:08 (specimen) CDT PM CDT Caitlin Owens MD LAB - BLOOD ORDERABLES Performing Organization Address City/[facility]/ZIP Code Phon e Number [facility] [address] [place], [place] [phone] [place] [address] LABS (ABNORMAL) CMV Antibody IgG (02/02/2014 2:07 PM CDT) P athologist Signature CMV Antibody 7.8 (H) 0.0 - 0.8 [facility] IgG [facility] LABS Comment: Positive Specimen Anatomical Collection Method Collection Time Receive d Time (Source) Location / / Volume Laterality Blood specimen 02/02/2014 2:07 PM 014 2:08 (specimen) CDT PM CDT Caitlin Owens MD LAB - BLOOD ORDERABLES Performing Organization Address City/[facility]/ZIP Code Phon e Number [facility] [address] [place], [place] [phone] [place] [address] LABS (ABNORMAL) Comprehensive metabolic panel (02/02/2014 2:07 PM CDT) Patholo gist Method Time Signature Sodium 141 133 - 144 [facility] mmol/L [facility] LABS Potassium 4.2 3.4 - 5.3 [facility] mmol/L [facility] LABS Chloride 101 94 - 109 [facility] mmol/L [facility] LABS Carbon Dioxide 26 20 - 32 [facility] mmol/L [facility] LABS Anion Gap 13 6 - 17 [facility] mmol/L [facility] LABS Glucose 112 (H) 60 - 99 [facility] mg/dL [facility] LABS Urea Nitrogen 42 (H) 7 - 30 [facility] mg/dL [facility] LABS Creatinine 6.03 (H) 0.66 - [facility] 1.25 [place] mg/dL CAMPUS LABS GFR Estimate 9 (L) >60 [facility] mL/min/1. [place] 7m2 [place] LABS GFR Estimate If 11 (L) >60 [facility] Black mL/min/1. [place] [address] LABS Calcium 9.9 8.5 - [facility] 10.4 [place] mg/dL [place] LABS Bilirubin Total 0.7 0.2 - 1.3 [facility] mg/dL [facility] LABS Albumin 4.2 3.3 - 4.9 [facility] g/dL [facility] LABS Protein Total 7.5 6.8 - 8.8 [facility] g/dL [facility] LABS Alkaline 88 40 - 150 [facility] Phosphatase U/L [facility] LABS ALT 33 0 - 70 [facility] U/L [facility] LABS AST 18 0 - 45 [facility] U/L [facility] LABS Specimen Anatomical Collection Method Collection Time Receive d Time (Source) Location / / Volume Laterality Blood specimen 02/02/2014 2:07 PM 014 2:08 (specimen) CDT PM CDT Caitlin Owens MD LAB - BLOOD ORDERABLES Performing Organization Address City/State/ZIP Code Phon e Number [address] LABS (ABNORMAL) CBC with platelets differential (02/02/2014 2:07 PM CDT) [facility] gist Method Time Signature WBC 6.3 4.0 - [facility] 11.0 [place] 10e9/L [place] LABS RBC Count 3.71 (L) 4.4 - 5.9 [facility] 10e12/L [facility] LABS Hemoglobin 11.5 (L) 13.3 - [facility] 17.7 g/dL [facility] LABS Hematocrit 33.7 (L) 40.0 - [facility] 53.0 % [facility] LABS MCV 91 78 - 100 [facility] fl [facility] LABS MCH 31.0 26.5 - [facility] 33.0 pg [facility] LABS MCHC 34.1 31.5 - [facility] 36.5 g/dL [facility] LABS RDW 14.0 10.0 - [facility] 15.0 % [facility] LABS Platelet Count 110 (L) 150 - 450 [facility] 10e9/L [facility] LABS Diff Method Automated [facility] Method [facility] LABS % Neutrophils 52.4 % [facility] LABS % Lymphocytes 32.1 % [facility] % Monocytes 7.9 % [facility] % Eosinophils 7.1 % [facility] % Basophils 0.3 % [facility] % Immature 0.2 % [facility] Granulocytes [facility] Absolute 3.3 1.6 - 8.3 [facility] Neutrophil 10e9/L [facility] [place] LABS Absolute 2.0 0.8 - 5.3 [facility] Lymphocytes 10e9/L [facility] Absolute 0.5 0.0 - 1.3 [facility] Monocytes 10e9/L [facility] Absolute 0.5 0.0 - 0.7 [facility] Eosinophils 10e9/L [facility] Absolute 0.0 0.0 - 0.2 [facility] Basophils 10e9/L [facility] LABS Abs Immature 0.0 0 - 0.4 [facility] Granulocytes 10e9/L [facility] LABS Specimen Anatomical Collection Method Collection Time Receive d Time (Source) Location / / Volume Laterality Blood specimen 02/02/2014 2:07 PM 02/02/ 014 2:08 (specimen) CDT PM CDT Caitlin Owens MD LAB - BLOOD ORDERABLES Performing Organization Address City/State/ZIP Code Phon e Number [facility] [address] LABS Creatinine urine calculation only (02/02/2014 2:00 PM CDT) P athologist Signature Creatinine 88 mg/dL [facility] Urine [place] LABS Specimen Anatomical Collection Method Collection Time Receive d Time (Source) Location / / Volume Laterality 02/02/2014 2:00 PM 4 2:12 CDT PM CDT Caitlin Owens MD LAB - URINE ORDERABLES Performing Organization Address City/[facility] Phon e Number [facility] [address] LABS (ABNORMAL) Urine culture (02/02/2014 2:00 PM CDT) Component Value Ref Test Analysis Performed At Patholo gist Range Method Time Signature Specimen Midstream [facility] Special Specimen received [facility] Requests in preservative MICROBIOLOGY Culture Micro <10,000 colonies/mL Gram pos itive cocci No further identification Susceptibility [facility] testing not routinely done [place] CROBIOLOGY <10,000 colonies/mL Strain 2 Gram positive [...] Address City/[facility]/ZIP Code Phon e Number [address] LABS [facility] MICROBIOLOGY (ABNORMAL) Protein random urine (02/02/2014 2:00 PM CDT) [facility] Method Time Signature Protein Random 1.89 g/L [facility] Urine [facility] LABS Protein Total 2.15 (H) 0 - 0.2 [facility] Urine g/gr g/g Cr [facility] LABS Specimen Anatomical Collection Method Collection Time Receive d Time (Source) Location / / Volume Laterality Urine specimen URINE SPECIMEN 02/02/2014 2:00 PM 02/02 2:12 (specimen) OBTAINED BY CLEAN CDT PM CDT CATCH PROCEDURE / Unknown Caitlin Owens MD LAB - URINE ORDERABLES Performing Organization Address City/[facility] Phon e Number [address] LABS (ABNORMAL) Routine UA with microscopic (02/02/2014 2:00 PM CDT) [facility] Method Time Signature Color Urine Light Yellow [facility] LABS Appearance Urine Clear [facility] LABS Glucose Urine 70 (A) NEG mg/dL [facility] LABS Bilirubin Urine Negative NEG [facility] LABS Ketones Urine Negative NEG mg/dL [facility] LABS Specific Mills 1.008 1.003 - [facility] Urine 1.035 [facility] LABS Blood Urine Negative NEG [facility] LABS pH Urine 8.0 (H) 5.0 - 7.0 [facility] pH [facility] LABS Protein Albumin 100 (A) NEG mg/dL [facility] Urine [facility] LABS Urobilinogen Normal 0.0 - 2.0 [facility] mg/dL mg/dL [facility] LABS Nitrite Urine Negative NEG [facility] LABS Leukocyte Negative NEG [facility] Esterase Urine [facility] LABS Source Clean catch [facility] urine [facility] LABS WBC Urine 1 0 - [...] Phon e Number [facility] [address] [place] [address] [facility] LABS (ABNORMAL) Glucose by meter [...] 12-lead, tracing only (02/02/2014 1:58 PM CDT) [facility] gist Method Time Signature Interpretation ECG Click View RADIOLOGY Image link RESULTS to view waveform and result Specimen (Source) Anatomical Collection Method Collection Time Re ceived Time Location / / Volume Laterality 02/02/2014 1:58 PM CDT Caitlin Owens MD ECG ORDERABLES Performing Organization Address City/[facility]/ZIP [facility] Phon e Number RADIOLOGY RESULTS documented in [...] dose, When verbally ordered by the prescriber. [place] throat with 1-4 sprays 5 minutes prior [...] (Not Gi isael - Provider: Lynne Gatica [facility] - Reason: Other - Comment: Dose [...] draw. documented in this encounter Care Teams Assembler Trim Relationship Specialty Start Date End Date Momo Forbes PCP - General Family Practice 01/02/14 [facility] [address] [place] [address] Ingrid Santana, RN Registered Nurse Transplant 02/10/12 documented as of this encounter
--- OUTSIDE RECORDS SUMMARY | 2022-07-07 10:55 | XMS_ITS | Encounter Summary ---
:1950 Author Organization [place] Address [facility] [place] [address] Care Team Providers Name Role Phone Toña Jones MD Primary Care Provider Ingrid Santana RN Unavailable Unavailable Reason for Visit Reason Onset Date Comments Transplant 12/19/2013 Kidney waitlist appo intments Encounter Details Date Type Department Care Team Description 12/19/2013 Telephone The Transplant Edda low Abstract, Provider Transplant (Kidney 2nd Floor, Clinic 2A waitlist appointments) [address] [phone] Social History Tobacco Use Types Packs/Day Years [...] filedocumented in this encounter Care Teams Slate Roofer Relationship Specialty Start Date End Date Toña Jones MD PCP - General Nephrology 11/25/11 01/01/14 Siers, Ingrid A, RN Registered Nurse Transplant 02/10/12 documented as of this encounter
--- OUTSIDE RECORDS SUMMARY | 2022-07-07 10:55 | XMS_ITS | Encounter Summary ---
:1950 Author Organization [place] Address [facility] [place] [address] Care Team Providers Name Role Phone Toña [...] on filedocumented in this encounter Care Teams Spinneret Cleaner Relationship Specialty Start Date End Date Toña Jones MD PCP - General Nephrology 11/25/11 01/01/14 Momo Forbes PCP - General Family Practice 01/02/[address] [place] [address] Ingrid Santana, RN Registered Nurse Transplant 02/10/12 documented as of this encounter
--- OUTSIDE RECORDS SUMMARY | 2022-07-07 10:55 | XMS_ITS | Encounter Summary ---
:1950 Author Organization [place] Address [address] [facility] [place] [address] Care Team Providers Name Role Phone Toña [...] Ump Sot Surgery 2nd Floor, Clinic [address] [phone] Referral ID Status Reason Start Date Expiration Date Visits Requ ested Visits Authorized [id number] Closed 12/10/2013 06/08/2014 1 1 Consultation - Closed Specialty Diagnoses / Procedures Referred By Contact Refer red To Contact Diagnoses Organ transplant candidate ESRD (end stage renal disease) on dialysis (H) DM (diabetes mellitus), type 2 (H) Zz Ump Sot Surgery [facility] Floor, [facility] [address] [phone] Referral ID Status Reason Start Date Expiration Date Visits Requ ested Visits Authorized [id number] Closed 12/10/2013 06/08/2014 1 1 Encounter Details Date Type Department Care Team Description 12/07/2013 Orders Only Transplant Surgery Nazia March LPN Organ transplant candidate (Primary Dx); Clinic Screening for other and unsp ecified cardiovascular conditions; 2nd Floor, Clinic 2A ESRD (end stage renal diseas e) on dialysis (H); Tommy Wilburn DM (madeleine betes mellitus), type 2 (H) [address] [phone] Social History Tobacco Use Types [...] uncontrolled documented in this encounter Care Teams Speed Belt Sander Tender Relationship Specialty Start Date End Date Toña Jones MD PCP - General Nephrology 11/25/11 01/01/14 Ingrid Santana, RN Registered Nurse Transplant 02/10/12 documented as of this encounter
--- OUTSIDE RECORDS SUMMARY | 2022-07-07 10:55 | XMS_ITS | Encounter Summary ---
:1950 Author Organization [place] Address [address] [place] [address] Care Team Providers Name Role Phone Ingrid Santana RN Unavailable Unavailable Momo Forbes Primary Care Provider Encounter Details Date Type Department Care Team Description 01/20/2014 Orders Only [facility] [place] jm [place] [address] [phone] [place] [address] 414 [place] [address] (Wo rk) Social History Tobacco [...] Results Tacrolimus level (02/15/2014 8:55 AM CDT) [facility] Method Time Signature Tacrolimus Last 02/14/2014 [facility] Dose 2030 [facility] Tacrolimus 5.9 5.0 - [facility] Level 15.0 ug/L [facility] [...] Code Phon e Number [facility] 500 [place], [place] [phone] [place] [address] LABS documented in this encounter Visit Diagnoses Not on filedocumented in this encounter Care Teams Roller Man Relationship Specialty Start Date End Date Momo Forbes PCP - General Family Practice 01/02/14 [facility] [address] [place] [address] Ingrid Santana, RN Registered Nurse Transplant 02/10/12 documented as of this encounter
--- OUTSIDE RECORDS SUMMARY | 2022-07-07 10:55 | XMS_ITS | Encounter Summary ---
:1950 Author Organization [place] Address [address] [place] [address] Care Team Providers Name Role Phone Toña Jones MD Primary Care Provider Ingrid Santana RN Unavailable Unavailable Encounter Details Date Type Department Care Team Description 11/05/2013 Results Only LABORATORY RESULTS Barbara Bradley MD [address] [place], [place] [address] Social History Tobacco Use [...] I Single Antigen (11/05/2013 7:20 AM CDT) [facility] gist Method Time Signature SA1 [...] Phon e Number [facility] Immunology/Histocompatabil [place], [place] [address] ity [facility] [address], Room 3-580 HISTOTRAC documented in this encounter Visit Diagnoses Not on filedocumented in this encounter Care Teams Harbor [employer] Launch Commander Relationship Specialty Start Date End Date Toña Jones MD PCP - General Nephrology 11/25/11 01/01/14 Ingrid Santana, RN Registered Nurse Transplant 02/10/12 documented as of this encounter
--- OUTSIDE RECORDS SUMMARY | 2022-07-07 10:55 | XMS_ITS | Encounter Summary ---
:1950 Author Organization [place] Address [address] [place] [address] Care Team Providers Name Role Phone Toña Jones MD Primary Care Provider Ingrid Santana RN Unavailable Unavailable Encounter Details Date Type Department Care Team Description 11/05/2013 Results Only LABORATORY RESULTS Barbara Bradley MD [address] [place], [place] [address] Social History Tobacco Use [...] II Single Antigen (11/05/2013 7:20 AM CDT) [facility] gist Method [...] Phon e Number [facility] Immunology/Histocompatabil [place], [place] [address] ity [facility] [address], Room 3-580 HISTOTRAC documented in this encounter Visit Diagnoses Not on filedocumented in this encounter Care Teams Rn Triage Relationship Specialty Start Date End Date Toña Jones MD PCP - General Nephrology 11/25/11 01/01/14 Ingrid Santana RN Registered Nurse Transplant 02/10/12 documented as of this encounter
--- OUTSIDE RECORDS SUMMARY | 2022-07-07 10:55 | XMS_ITS | Encounter Summary ---
:1950 Author Organization [place] Address [address] [place] [address] Care Team Providers Name Role Phone Ingrid Santana RN Unavailable Unavailable Momo Forbes Primary Care Provider Encounter Details Date Type Department Care Team Description 01/21/2014 Results Only LABORATORY RESULTS Mingo Dangelo MD [address] [facility] SE [facility] 195 [place] [address] (Wo rk) Social History Tobacco [...] HLA Lukasz Class II Single Antigen (01/21/2014) [facility] gist Method Time Signature SA2 Test [...] [place], [place] [address] ity [facility] [address], Room 3-580 HISTOTRAC documented in this encounter Visit Diagnoses Not on filedocumented in this encounter Care Teams Hospitalist Medical Director Relationship Specialty Start Date End Date Momo Forbes PCP - General Family Practice 01/02/14 [facility] [address] [place] [address] Ingrid Santana, RN Registered Nurse Transplant 02/10/12 documented as of this encounter
--- OUTSIDE RECORDS SUMMARY | 2022-07-07 10:55 | XMS_ITS | Encounter Summary ---
:1950 Author Organization [place] Address [address] [place] [address] Care Team Providers Name Role Phone Toña Jones MD Primary Care Provider Ingrid Santana RN Unavailable Unavailable Encounter Details Date Type Department Care Team Description 12/10/2013 Telephone Transplant Surgery C Nazia Bledsoe LPN 2nd Floor, Clinic [address] [place] [phone] Social History Tobacco Use Types Packs/Day [...] on filedocumented in this encounter Care Teams Occupational Therapist Per Diem Relationship Specialty Start Date End Date Toña Jones MD PCP - General Nephrology 11/25/11 01/01/14 Ingrid Santana, RN Registered Nurse Transplant 02/10/12 documented as of this encounter
--- OUTSIDE RECORDS SUMMARY | 2022-07-07 10:55 | XMS_ITS | Encounter Summary ---
:1950 Author Organization [place] Address [facility] [place] [address] Care Team Providers Name Role Phone Toña [...] filedocumented in this encounter Care Teams Parking Inspector Relationship Specialty Start Date End Date Toña Jones MD PCP - General Nephrology 11/25/11 01/01/14 Momo Forbes PCP - General Family Practice 01/02/[address] [place] [address] Ingrid Santana, RN Registered Nurse Transplant 02/10/12 documented as of this encounter
--- OUTSIDE RECORDS SUMMARY | 2022-07-07 10:55 | XMS_ITS | Encounter Summary ---
:1950 Author Organization [place] Address [address] [place] [address] Care Team Providers Name Role Phone Ingrid Santana RN Unavailable Unavailable Momo Forbes Primary Care Provider Encounter Details Date Type Department Care Team Description 01/21/2014 Results Only LABORATORY RESULTS Mingo Dangelo MD [address] [facility] SE [facility] 195 [place] [address] (Wo rk) Social History Tobacco [...] Results HLA Flow T/B Crossmatch Allo (01/21/2014) [facility] gist Method Time Signature Crossmatch Donor:[id number], ?Crossmatch Date:02/02/2014 HISTOTRAC Result (Note) Serum Date [...] Phon e Number [facility] Immunology/Histocompatabil [place], [place] [address] roger [facility] 500 [facility] [address] Building, Room 3-580 HISTOTRAC documented in this encounter Visit Diagnoses Not on filedocumented in this encounter Care Teams Mule Tender Relationship Specialty Start Date End Date Momo Forbes PCP - General Family Practice 01/02/14 [facility] 1999 [place] [address] Ingrid Santana, RN Registered Nurse Transplant 02/10/12 documented as of this encounter
--- OUTSIDE RECORDS SUMMARY | 2022-07-07 10:55 | XMS_ITS | Encounter Summary ---
:1950 Author Organization [place] Address [facility] [place] [address] Care Team Providers Name Role Phone Toña [...] HLA Lukasz Class II Single Antigen (04/16/2013) [facility] gist Method Time Signature SA2 [...] Phon e Number [facility] Immunology/Histocompatabil [place], [place] [address] ity [facility] [address], Room 3-580 HISTOTRAC documented in this encounter Visit Diagnoses Not on filedocumented in this encounter Care Teams Station Cleaning Porter Relationship Specialty Start Date End Date Toña Jones MD PCP - General Nephrology 11/25/11 01/01/14 Ingrid Santana, RN Registered Nurse Transplant 02/10/12 documented as of this encounter
--- OUTSIDE RECORDS SUMMARY | 2022-07-07 10:55 | XMS_ITS | Encounter Summary ---
:1950 Author Organization [place] Address [address] [place] [address] Care Team Providers Name Role Phone Toña Jones MD Primary Care Provider Ingrid Santana RN Unavailable Unavailable Encounter Details Date Type Department Care Team Description 02/28/2013 Orders Only [facility] Molly Sanderson Organ transplant 500 [facility] candidate (Primary Dx) [place] [phone] Social History Tobacco Use Types Packs/Day Years [...] status documented in this encounter Care Teams Evening Or Night Nurse Supervisor Relationship Specialty Start Date End Date Toña Jones MD PCP - General Nephrology 11/25/11 01/01/14 Ingrid Santana RN Registered Nurse Transplant 02/10/12 documented as of this encounter
--- OUTSIDE RECORDS SUMMARY | 2022-07-07 10:55 | XMS_ITS | Encounter Summary ---
:1950 Author Organization [place] [employer] Address [address] [place] [address] Care Team Providers Name Role Phone Ingrid Santana RN Unavailable Unavailable Momo Forbes Primary Care Provider Encounter Details Date Type Department Care Team Description 01/21/2014 Results Only LABORATORY RESULTS Mingo Dangelo MD [address] [facility] 195 [place] [address] (Wo rk) Social History Tobacco [...] Class I Single Antigen (01/21/2014) [facility] gist Method Time Signature SA1 Test [...] Phon e Number [facility] Immunology/Histocompatabil [place], [place] [address] ity [facility] [address] Building, Room 3-580 HISTOTRAC documented in this encounter Visit Diagnoses Not on filedocumented in this encounter Care Teams Technical Specialist Cytology Relationship Specialty Start Date End Date Momo Forbes PCP - General Family Practice 01/02/14 [facility] 1999 [place], [place] [phone] Ingrid Santana, RN Registered Nurse Transplant 02/10/12 documented as of this encounter
--- OUTSIDE RECORDS SUMMARY | 2022-07-07 10:55 | XMS_ITS | Encounter Summary ---
:1950 Author Organization [place] Address [address] [place] [address] Care Team Providers Name Role Phone Toña Jones MD Primary Care Provider Ingrid Santana RN Unavailable Unavailable Encounter Details Date Type Department Care Team Description 07/30/2013 Results Only LABORATORY RESULTS Mingo Dangelo MD [address] [facility] 195 [place] [address] (Wo rk) [...] HLA Lukasz Class I Single Antigen (07/30/2013) [facility] gist Method [...] / Volume Laterality 07/30/2013 07/31/2013 2:10 PM AGRICULTURE SALES ACCOUNT MANAGER Mingo Dangelo MD LAB - IMMUNOLOGY ORDERABLES Performing Organization Address City/State/ZIP Code Phon e Number [facility] Immunology/Histocompatabil [place], [place] [address] ity [facility] [address], Room 3-580 HISTOTRAC documented in this encounter Visit Diagnoses Not on filedocumented in this encounter Care Teams Guest Relations Representative Relationship Specialty Start Date End Date Toña Jones MD PCP - General Nephrology 11/25/11 01/01/14 Ingrid Santana, RN Registered Nurse Transplant 02/10/12 documented as of this encounter
--- OUTSIDE RECORDS SUMMARY | 2022-07-07 10:55 | XMS_ITS | Encounter Summary ---
:1950 Author Organization [place] Address [address] [place] [address] Care Team Providers Name Role Phone Ingrid Santana RN Unavailable Unavailable Momo Forbes Primary Care Provider Reason for Visit Reason Onset Date Comments Transplant 02/02/2014 Kidney Offer Encounter Details Date Type Department Care Team Description 02/02/2014 Telephone Transplant Surgery Carmelita Rosario Tran splant ([facility] RN Offer) 2nd Floor, Clinic [address] [phone] Social History Tobacco Use [...] on filedocumented in this encounter Care Teams Colorman Relationship Specialty Start Date End Date Momo Forbes PCP - General Family Practice 01/02/[address] [address] Ingrid Santana, RN Registered Nurse Transplant 02/10/12 documented as of this encounter
--- OUTSIDE RECORDS SUMMARY | 2022-07-07 10:56 | XMS_ITS | Encounter Summary ---
:1950 Author Organization [place] Address [facility] [place] [address] Care Team Providers Name Role Phone Toña [...] - HIM SCAN - 09/25/2012 8:26 AM AUTOMATION MANAGER ARCHIVE documented in this encounter Results LAB RESULT - HIM SCAN - ARCHIVE (09/25/2012 8:26 AM AUTOMATION MANAGER) Specimen (Source) Anatomical Location Collection Method / Collectio n Time Received Time / Laterality Volume Narrative This result has an attachment that is no t available. Marcela Cordero MD LAB - BLOOD ORDERABLES documented in this encounter Visit Diagnoses Not on filedocumented in this encounter Care Teams Print Shop Manager Relationship Specialty Start Date End Date Toña Jones MD PCP - General Nephrology 11/25/11 01/01/14 Momo Forbes PCP - General Family Practice 01/02/[address] [place] [address] Ingrid Santana, RN Registered Nurse Transplant 02/10/12 documented as of this encounter
--- OUTSIDE RECORDS SUMMARY | 2022-07-07 10:56 | XMS_ITS | Encounter Summary ---
:1950 Author Organization [place] Address [address] [place] [address] Care Team Providers Name Role Phone Toña Jones MD Primary Care Provider Ingrid Santana RN Unavailable Unavailable Encounter Details Date Type Department Care Team Description 10/11/2012 Results Only LABORATORY RESULTS Barbara Bradley MD [address] [place], [place] [address] Social History Tobacco Use [...] HLA Lukasz Class I Single Antigen (10/11/2012) [employer] gist Method Time Signature SA1 Test Single [...] / Volume Laterality 10/11/2012 10/12/2012 1:03 PM BATCH ROOM TECHNICIAN Barbara Bradley MD LAB - IMMUNOLOGY ORDERABLES Performing Organization Address City/State/ZIP Code Phon e Number [facility] Immunology/Histocompatabil [place], [place] [address] ity [facility] 500 [facility] [address] Building, Room 3-580 HISTOTRAC documented in this encounter Visit Diagnoses Not on filedocumented in this encounter Care Teams Personal Care Assistant Relationship Specialty Start Date End Date Toña Jones MD PCP - General Nephrology 11/25/11 01/01/14 Ingrid Santana, RN Registered Nurse Transplant 02/10/12 documented as of this encounter
--- OUTSIDE RECORDS SUMMARY | 2022-07-07 10:56 | XMS_ITS | Encounter Summary ---
:1950 Author Organization [place] Address [address] [place] [address] Care Team Providers Name Role Phone Toña Jones MD Primary Care Provider Ingrid Santana RN Unavailable Unavailable Encounter Details Date Type Department Care Team Description 10/11/2012 Results Only LABORATORY RESULTS Barbara Bradley MD [address] [place], [place] [address] Social History Tobacco Use [...] HLA Lukasz Class II Single Antigen (10/11/2012) [facility] gist Method Time Signature SA2 [...] / Volume Laterality 10/11/2012 10/12/2012 1:03 PM SHERIFF'S DETECTIVE Butler Suseekar Bradley MD LAB - IMMUNOLOGY ORDERABLES Performing Organization Address City/State/ZIP Code Phon e Number [facility] Immunology/Histocompatabil [place], [place] [address] ity [facility] 500 [facility] [address] Building, Room 3-580 HISTOTRAC documented in this encounter Visit Diagnoses Not on filedocumented in this encounter Care Teams Rotoformer Backtender Relationship Specialty Start Date End Date Toña Jones MD PCP - General Nephrology 11/25/11 01/01/14 Ingrid Santana, RN Registered Nurse Transplant 02/10/12 documented as of this encounter
--- OUTSIDE RECORDS SUMMARY | 2022-07-07 10:56 | XMS_ITS | Encounter Summary ---
:1950 Author Organization [place] Address [address] [place] [address] Care Team Providers Name Role Phone Toña Jones MD Primary Care Provider Ingrid Santana RN Unavailable Unavailable Encounter Details Date Type Department Care Team Description 02/08/2012 Results Only LABORATORY RESULTS Jeff Joshi MD [address] [facility] 353 [place] [address] (Wo rk) Social History Tobacco [...] Phon e Number [facility] Immunology/Histocompatabil [place], [place] [address] ity [facility] [address] [facility] [address] Building, Room 3-580 HISTOTRAC documented in this encounter Visit Diagnoses Not on filedocumented in this encounter Care Teams Storage And Backup Administrator Relationship Specialty Start Date End Date Toña Jones MD PCP - General Nephrology 11/25/11 01/01/14 Ingrid Santana, RN Registered Nurse Transplant 02/10/12 documented as of this encounter
--- OUTSIDE RECORDS SUMMARY | 2022-07-07 10:56 | XMS_ITS | Encounter Summary ---
:1950 Author Organization [place] Address [address] [place] [address]. [place] [address] Care Team Providers Name Role Phone Toña Jones MD Primary Care Provider Ingrid Santana RN Unavailable Unavailable Momo Forbes Primary Care Provider Encounter Details Date Type Department Care Team Description 02/18/2012 Abstract The Transplant [facility] r 2nd Floor, Clinic [address] [phone] Social History Tobacco Use [...] filedocumented in this encounter Care Teams Body Shop Manager Relationship Specialty Start Date End Date Toña Jones MD PCP - General Nephrology 11/25/11 01/01/14 Momo Forbes PCP - General Family Practice 01/02/[address] [address] Ingrid Santana, RN Registered Nurse Transplant 02/10/12 documented as of this encounter
--- OUTSIDE RECORDS SUMMARY | 2022-07-07 10:56 | XMS_ITS | Encounter Summary ---
:1950 Author Organization [place] Address [address] [place] [address] Care Team Providers Name Role Phone Toña Jones MD Primary Care Provider Ingrid Santana RN Unavailable Unavailable Encounter Details Date Type Department Care Team Description 02/15/2012 Hospital Encounter [facility] Barbara Bradley Unsp ecified essential hypertension; [facility] MD Monae Pre-operative clearance [address] [place] [address] [place] [phone] Social History Tobacco Use Types Packs/Day [...] tablet by mouth 0 02/18/2014 daily. B dflisxe-I-munna acid Take 1 capsule by mouth 0 [...] unspecified documented in this encounter Care Teams Junior Manufacturing Engineer Relationship Specialty Start Date End Date Toña Jones MD PCP - General Nephrology 11/25/11 01/01/14 Ingrid Santana, RN Registered Nurse Transplant 02/10/12 documented as of this encounter
--- OUTSIDE RECORDS SUMMARY | 2022-07-07 10:56 | XMS_ITS | Encounter Summary ---
:1950 Author Organization [place] Address [address] [place] [address] Care Team Providers Name Role Phone Toña Jones MD Primary Care Provider Ingrid Santana RN Unavailable Unavailable Reason for Visit (Routine) - Closed Specialty Diagnoses / Procedures Referred By Contact Refer red To Contact Cardiology Diagnoses NM [facility] Procedure Notes: UNSPECIFIED ESSENTIAL HYPERTENSION,PREOPERATIVE EXAMINATION, UNSPECIFIED, Zz [facility] Electrocard Procedures RADIOLOGY 500 [place] [address] Referral ID Status Reason Start Date Expiration Date Visits Requ ested Visits Authorized [id number] Closed 02/11/2012 02/10/2013 1 1 Encounter Details Date Type Department Care Team Description 02/15/2012 Hospital Encounter [facility] ELECTROCARD Barbara Bradley 500 [facility] [place] [address] [address] [place], [place] [address] Social History Tobacco Use [...] tablet by mouth 0 02/18/2014 daily. B zkeabcd-O-txnhv acid Take 1 capsule by mouth 0 [...] Test documented in this encounter Care Teams Creative Perfumer Relationship Specialty Start Date End Date Toña Jones MD PCP - General Nephrology 11/25/11 01/01/14 Ingrid Santana, RN Registered Nurse Transplant 02/10/12 documented as of this encounter
--- OUTSIDE RECORDS SUMMARY | 2022-07-07 10:56 | XMS_ITS | Encounter Summary ---
:1950 Author Organization [place] Address [address] [place] [address] Care Team Providers Name Role Phone Toña Jones MD Primary Care Provider Ingrid Santana RN Unavailable Unavailable Encounter Details Date Type Department Care Team Description 02/10/2012 Hospital Encounter M [facility] Jesus Cardenas MD Nutrition Services Martina Harley, RD 420 [facility] [address] [place] [address] [facility] Joseph Quintana MD 717 [facility] 353 [facility] [address] [place] [address] 84 [place] [address] Social History Tobacco Use Types Packs/Day Years [...] tablet by mouth 0 02/18/2014 daily. B ztmnqja-X-dpjvv acid Take 1 capsule by mouth 0 [...] Mcneill, RD - 02/10/2012 8:47 AM CDT [facility] Medical Nutrition Therapy Visit Type: [...] filedocumented in this encounter Care Teams Day Habilitation Specialist Relationship Specialty Start Date End Date Toña Jones MD PCP - General Nephrology 11/25/11 01/01/14 Ingrid Santana RN Registered Nurse Transplant 02/10/12 documented as of this encounter
--- OUTSIDE RECORDS SUMMARY | 2022-07-07 10:56 | XMS_ITS | Encounter Summary ---
:1950 Author Organization [place] Address [address] [place] [address] Care Team Providers Name Role Phone Toña Jones MD Primary Care Provider Ingrid Santana RN Unavailable Unavailable Encounter Details Date Type Department Care Team Description 07/03/2012 Results Only LABORATORY RESULTS Barbara Bradley MD [address] [place], [place] [address] Social History Tobacco Use [...] HLA Lukasz Class I Single Antigen (07/03/2012) [facility] gist Method Time Signature SA1 [...] / Volume Laterality 07/03/2012 07/05/2012 1:57 PM LONG TERM CARE PHLEBOTOMIST Barbara Bradley MD LAB - IMMUNOLOGY ORDERABLES Performing Organization Address City/State/ZIP Code Phon e Number [facility] Immunology/Histocompatabil [place], [place] [address] ity [facility] 500 [facility] [address] Building, Room 3-580 HISTOTRAC documented in this encounter Visit Diagnoses Not on filedocumented in this encounter Care Teams Service Rig Operator Relationship Specialty Start Date End Date Toña Jones MD PCP - General Nephrology 11/25/11 01/01/14 Ingrid Santana, RN Registered Nurse Transplant 02/10/12 documented as of this encounter
--- OUTSIDE RECORDS SUMMARY | 2022-07-07 10:56 | XMS_ITS | Encounter Summary ---
:1950 Author Organization [place] Address [address] [place] [address] Care Team Providers Name Role Phone Toña Jones MD Primary Care Provider Ingrid Santana RN Unavailable Unavailable Encounter Details Date Type Department Care Team Description 07/03/2012 Results Only LABORATORY RESULTS Barbara Bradley MD [address] [place], [place] [address] Social History Tobacco Use [...] HLA Lukasz Class II Single Antigen (07/03/2012) [facility] gist Method Time Signature SA2 Test [...] / Volume Laterality 07/03/2012 07/05/2012 1:57 PM FILTERING MACHINE TENDER HELPER Nelson Suseekar Bradley MD LAB - IMMUNOLOGY ORDERABLES Performing Organization Address City/State/ZIP Code Phon e Number [facility] Immunology/Histocompatabil [place], [place] [address] ity [facility] 500 [facility] [address] Building, Room 3-580 HISTOTRAC documented in this encounter Visit Diagnoses Not on filedocumented in this encounter Care Teams Support Worker Relationship Specialty Start Date End Date Toña Jones MD PCP - General Nephrology 11/25/11 01/01/14 Ingrid Santana, RN Registered Nurse Transplant 02/10/12 documented as of this encounter
--- OUTSIDE RECORDS SUMMARY | 2022-07-07 10:56 | XMS_ITS | Encounter Summary ---
:1950 Author Organization [place] Address [address] [facility] [place] [address] Care Team Providers Name Role Phone Toña Jones MD Primary Care Provider Ingrid Santana RN Unavailable Unavailable Reason for Visit Reason Comments Transplant Evaluation kidney Encounter Details Date Type Department Care Team Description 02/10/2012 Office Visit Nephrology Darian Joshi MD [address] [facility] [address] [place], [place] [id number] Pre-transplant 2nd Floor, Clinic 2A Joseph Quintana MD [address] [facility] [address] [facility] [address] [place], [place] [address] evaluation for Sanders Mimaalyssa chronic kidney Building disease (Primary Dx) [address] [place] [phone] Social History Tobacco Use Types Packs/Day Years [...] Dialysis Type: Incenter HD; and Dialysis unit: [facility] Primary Platform Material Handling Supervisor: Dr. 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 Yes Reported, Patient B jxdlwdo-K-ylzzp acid (NEPHROCAPS) 1 MG capsule Take 1 [...] NEG Ketones Urine Negative NEG (mg/dL) Specific [place] Urine 1.010 1.003 - 1.035 Blood Urine [...] Report Value: Patient Name: ELINOR GUTHRIE MR#: [id number] Specimen #: [id number] Collected: 02/08/2012 07:07 Received: 02/08/2012 09:00 Reported: 02/11/2012 14:03 Ordering Phy(s): DARIAN JOSHI TEST(S) REQUESTED: A: Factor 5 Leiden and Factor 2 by PCR B: DNA Isolation, High purity extraction SPECIMEN DESCRIPTION: Blood METHODOLOGY: The regions of genomic DNA containing the J4049H Factor 5 gene mutation (Factor V Leiden) and the Factor 2(Prothrombin P17416J) gene mutation were simultaneously amplified using the polymerase chain reaction. The amplified products were digested with restriction endonuclease TaqI and products were analyzed by gel electrophoresis. RESULTS: FACTOR 5-LEIDEN RESULTS: Mutation analyzed: 1691G>A Factor 5 Mutation Interpretation: ABSENT Factor 5 Mutation genotype: G/G FACTOR 2/PROTHROMBIN RESULTS: Mutation analyzed: 70797A>A Factor 2 Mutation Interpretation: ABSENT Factor 2 Mutation genotype: G/G INTERPRETATION: The patient is negative for the Factor 5 mutation and negative for the Factor 2 mutation. This test was developed and its performance determined by the [facility]. It has not [...] By: Liliya Stone MD TESTING LAB LOCATION: [address] [address] COLLECTION SITE: Client: [facility] Location: [facility] () HLA LUKASZ CLASS I SINGLE ANTIGEN [...] of an antiphospholipid syndrome, recommend anticardiolipin and tzln-7-fbvvnlmtexgr (IgG and IgM) antibody tests. Dee Duenas M.D. [phone] 02-09-2012. APTT'S: Seconds Reagent = Stago LS [...] Range Ventricular Rate 60 Atrial Rate 60 IL Interval 186 QRS Duration 104 QT 440 QTc 440 P Poneto 36 R AXIS 0 T Poneto 36 Interpretation ECG Sinus rhythm Interpretation ECG [...] Function Test Value: Name: ELINOR GUTHRIE ID: [id number] Doctor: DONYA THOMAS Height: 72.00 in Age: [...] INTERPRETATION: The FVC, FEV1, FEV1/FVC ratio and KWY46-37% are within normal limits. The inspiratory flow [...] AM CDT >> AUSTEN FAUSTIN [facility] Feb 10, 2012 9:54 AM Took vitals, cc, reviewed meds and allergies documented in this encounter Plan of Treatment Not on filedocumented as of this encounter Visit Diagnoses Diagnosis Pre-transplant evaluation for chronic ki dney disease - Primary Other specified pre-operative examinatio n documented in this encounter Care Teams Physical Security Manager Relationship Specialty Start Date End Date Toña Jones MD PCP - General Nephrology 11/25/11 01/01/14 Ingrid Santana, RN Registered Nurse Transplant 02/10/12 documented as of this encounter
--- OUTSIDE RECORDS SUMMARY | 2022-07-07 10:56 | XMS_ITS | Encounter Summary ---
:1950 Author Organization [place] Address [address] [place] [address] Care Team Providers Name Role Phone Toña Jones MD Primary Care Provider Ingrid Santana RN Unavailable Unavailable Encounter Details Date Type Department Care Team Description 01/17/2013 Results Only LABORATORY RESULTS Barbara Bradley MD [address] [place], [place] [address] Social History Tobacco Use [...] HLA Lukasz Class I Single Antigen (01/17/2013) [facility] gist Method Time Signature SA1 Test [...] Phon e Number [facility] Immunology/Histocompatabil [place], [place] [address] ity [facility] [address] [facility] [address] Building, Room 3-580 HISTOTRAC documented in this encounter Visit Diagnoses Not on filedocumented in this encounter Care Teams Senior Research Project Manager Relationship Specialty Start Date End Date Toña Jones MD PCP - General Nephrology 11/25/11 01/01/14 Ingrid Santana, RN Registered Nurse Transplant 02/10/12 documented as of this encounter
--- OUTSIDE RECORDS SUMMARY | 2022-07-07 10:56 | XMS_ITS | Encounter Summary ---
:1950 Author Organization [place] Address [address] [place] [address] Care Team Providers Name Role Phone Toña Jones MD Primary Care Provider Ingrid Santana RN Unavailable Unavailable Encounter Details Date Type Department Care Team Description 02/08/2012 Results Only LABORATORY RESULTS Jeff Joshi MD [address] [facility] 353 [place] [address] (Wo rk) Social History Tobacco [...] II Single Antigen (02/08/2012 7:07 AM CDT) [facility] gist Method [...] Phon e Number [facility] Immunology/Histocompatabil [place], [place] [address] [facility] [address] Building, Room 3-580 HISTOTRAC documented in this encounter Visit Diagnoses Not on filedocumented in this encounter Care Teams Faceter Relationship Specialty Start Date End Date Toña Jones MD PCP - General Nephrology 11/25/11 01/01/14 Ingrid Santana, RN Registered Nurse Transplant 02/10/12 documented as of this encounter
--- OUTSIDE RECORDS SUMMARY | 2022-07-07 10:56 | XMS_ITS | Encounter Summary ---
:1950 Author Organization [place] Address [address] [place] [address] Care Team Providers Name Role Phone Toña Jones MD Primary Care Provider Ingrid Santana RN Unavailable Unavailable Encounter Details Date Type Department Care Team Description 04/13/2012 Results Only LABORATORY RESULTS Mingo Dangelo MD [address] [facility] [address] [place] [address] (Wo rk) Social History Tobacco [...] HLA Lukasz Class II Single Antigen (04/13/2012) [facility] gist Method Time Signature SA2 [...] Phon e Number [facility] Immunology/Histocompatabil [place], [place] [address] ity [facility] [address] Building, Room 3-580 HISTOTRAC documented in this encounter Visit Diagnoses Not on filedocumented in this encounter Care Teams Habilitation Specialist Relationship Specialty Start Date End Date Toña Jones MD PCP - General Nephrology 11/25/11 01/01/14 Ingrid Santana, RN Registered Nurse Transplant 02/10/12 documented as of this encounter
--- OUTSIDE RECORDS SUMMARY | 2022-07-07 10:56 | XMS_ITS | Encounter Summary ---
:1950 Author Organization [place] Address [address] [place] [address] Care Team Providers Name Role Phone Toña Jones MD Primary Care Provider Ingrid Santana RN Unavailable Unavailable Encounter Details Date Type Department Care Team Description 04/13/2012 Results Only LABORATORY RESULTS Mingo Dangelo MD [address] [facility] [address] [place] [address] (Wo rk) Social History Tobacco [...] HLA Lukasz Class I Single Antigen (04/13/2012) [facility] gist Method Time Signature SA1 Test [...] Phon e Number [facility] Immunology/Histocompatabil [place], [place] [address] ity [facility] [address] Building, Room 3-580 HISTOTRAC documented in this encounter Visit Diagnoses Not on filedocumented in this encounter Care Teams Summer Law Clerk Relationship Specialty Start Date End Date Toña Jones MD PCP - General Nephrology 11/25/11 01/01/14 Ingrid Santana, RN Registered Nurse Transplant 02/10/12 documented as of this encounter
--- OUTSIDE RECORDS SUMMARY | 2022-07-07 10:56 | XMS_ITS | Encounter Summary ---
:1950 Author Organization [place] Address [facility] [place] [address] Care Team Providers Name Role Phone Toña Jones MD Primary Care Provider Ingrid Santana RN Unavailable Unavailable Reason for Visit Reason Comments Social Work Services Encounter Details Date Type Department Care Team Description 02/10/2012 Office Visit The Transplant Akanksha Stacy Organ transplant 2nd Floor, Clinic 2A SHALOM Zacarias candidate (Primary Sanders [facility] Dx) [address] [phone] Social History Tobacco Use Types Packs/Day Years [...] old Duration of Interview: 40 min Process: Rbow-jy-Glfq Interview (counseling < 50%) Present at Appointment: Latrell, his brother Kiran and Latrell Zamora, Transplant Financial Hand Ii Tube BenderSubsorter Worker: CECY Ortiz, TEMPORARY ADMINISTRATIVE ASSISTANT Date: February 10, 2012 Type of transplant: Kidney Donor type: Latrell indicated that he does not know of any potential donors at this time. Cadaver Prior Transplants: No Status of Transplant: Current Living Situation Location: [facility] [address] [place] [address] [facility] [phone] With Whom: Alone Family/ Social Support: Kiran lives in [place], [place]. Available, helpful Committed relationship: Latrell indicated [...] Income Savings Insurance Latrell has BC/BS through [employer] until 07/22/13. He has also applied for [...] that assist with fund raising. Discussed asking fish hatchery worker for assistance with cobra premiums and [...] No Adequate Finances Yes Signature: CECY Ortiz, [facility] Title: Clinical Negative Turner documented in this encounter Plan of Treatment Not on filedocumented as of this encounter Visit Diagnoses Diagnosis Organ transplant candidate - Primary Awaiting organ transplant status documented in this encounter Care Teams Scrummaster Relationship Specialty Start Date End Date Toña Jones MD PCP - General Nephrology 11/25/11 01/01/14 Ingrid Santana, RN Registered Nurse Transplant 02/10/12 documented as of this encounter
--- OUTSIDE RECORDS SUMMARY | 2022-07-07 10:56 | XMS_ITS | Encounter Summary ---
:1950 Author Organization [place] Address [address] [place] [address] Care Team Providers Name Role Phone Toña Jones MD Primary Care Provider Ingrid Santana RN Unavailable Unavailable Encounter Details Date Type Department Care Team Description 07/03/2012 Results Only LABORATORY RESULTS Barbara Bradley MD [address] [place], [place] [address] Social History Tobacco Use [...] in this encounter Results Virtual Crossmatch (07/03/2012) [facility] Method Time Signature Crossmatch Donor:ABRAHAM HICKEY ? Crossmatch Date:07/24/2012 HISTOTRAC Result (Note) Serum Date ??Test ?Result ? Donor Specific Antibody ?Comments 07/03/2012 ??Class I/Virtxm1 ? DSA ?None ? 07/03/2012 ??Class II/Virtxm 1 ?DSA ?None ? Specimen (Source) Anatomical Collection Method Collection Time Re ceived Time Location / / Volume Laterality 07/03/2012 07/05/2012 1:57 PM MARKETING GRAPHICS SPECIALIST Barbara Bradley MD LAB - IMMUNOLOGY ORDERABLES Performing Organization Address City/State/ZIP Code Phon e Number [facility] Immunology/Histocompatabil [place], [place] [address] [facility] [address] Building, Room 3-580 HISTOTRAC documented in this encounter Visit Diagnoses Not on filedocumented in this encounter Care Teams Chin Strap Maker Relationship Specialty Start Date End Date Toña Jones MD PCP - General Nephrology 11/25/11 01/01/14 Ingrid Santana RN Registered Nurse Transplant 02/10/12 documented as of this encounter
--- OUTSIDE RECORDS SUMMARY | 2022-07-07 10:56 | XMS_ITS | Encounter Summary ---
:1950 Author Organization [place] Address [address] [place] [address] Care Team Providers Name Role Phone Toña Jones MD Primary Care Provider Ingrid Santana RN Unavailable Unavailable Encounter Details Date Type Department Care Team Description 02/08/2012 Results Only LABORATORY RESULTS Jeff Joshi MD [address] [facility] 353 [place] [address] (Wo rk) Social History [...] Phon e Number [facility] Immunology/Histocompatabil [place], [place] [address] [facility] [address] Building, Room 3-580 HISTOTRAC documented in this encounter Visit Diagnoses Not on filedocumented in this encounter Care Teams Lead Business Analyst Relationship Specialty Start Date End Date Toña Jones MD PCP - General Nephrology 11/25/11 01/01/14 Ingrid Santana, RN Registered Nurse Transplant 02/10/12 documented as of this encounter
--- OUTSIDE RECORDS SUMMARY | 2022-07-07 10:56 | XMS_ITS | Encounter Summary ---
:1950 Author Organization [place] Address [address] [place] [address] Care Team Providers Name Role Phone Toña Jones MD Primary Care Provider Encounter Details Date Type Department Care Team Description 02/08/2012 Hospital Encounter [facility] Jesus Cardenas MD Patient Learning Bobby Angela Leon, BOGDAN [address] [facility] [address] [place] [phone] [place] [address] Social History Tobacco Use Types Packs/Day Years [...] tablet by mouth 0 02/18/2014 daily. B njwyvli-W-drltn acid Take 1 capsule by mouth 0 [...] filedocumented in this encounter Care Teams Seat Joiner Chainstitch Relationship Specialty Start Date End Date Toña Jones MD PCP - General Nephrology 11/25/11 01/01/14 documented as of this encounter
--- OUTSIDE RECORDS SUMMARY | 2022-07-07 10:56 | XMS_ITS | Encounter Summary ---
:1950 Author Organization [place] Address [address] [place] [address] Care Team Providers Name Role Phone Toña Jones MD Primary Care Provider Ingrid Santana RN Unavailable Unavailable Reason for Visit (Routine) - Closed Specialty Diagnoses / Procedures Referred By Contact Refer red To Contact Radiology Diagnoses NM MPI SCAN Procedure Notes: UNSPECIFIED ESSENTIAL HYPERTENSION,PREOPERATIVE EXAMINATION, UNSPECIFIED, [facility] Nuclear Medicine Procedures RADIOLOGY [address] [place] [address] Phone: Referral ID Status Reason Start Date Expiration Date Visits Requ ested Visits Authorized [id number] Closed 02/11/2012 02/10/2013 1 1 Encounter Details Date Type Department Care Team Description 02/15/2012 Hospital Encounter [facility] Barbara Bradley ESRD (end stage [facility] Imaging MD Monae renal disease) (H) [address] [facility] [address] [place] [address] Social History Tobacco Use [...] tablet by mouth 0 02/18/2014 daily. B hovocpb-S-zpbzs acid Take 1 capsule by mouth 0 [...] documented in this encounter Care Teams Energy Infrastructure Engineer Relationship Specialty Start Date End Date Toña Jones MD PCP - General Nephrology 11/25/11 01/01/14 Ingrid Santana RN Registered Nurse Transplant 02/10/12 documented as of this encounter
--- OUTSIDE RECORDS SUMMARY | 2022-07-07 10:56 | XMS_ITS | Encounter Summary ---
:1950 Author Organization [place] Address [address] [place] [address] Care Team Providers Name Role Phone Toña Jones MD Primary Care Provider Ingrid Santana RN Unavailable Unavailable Reason for Visit (Routine) - Closed Specialty Diagnoses / Procedures Referred By Contact Refer red To Contact Radiology Diagnoses NM MPI [place] Procedure Notes: UNSPECIFIED ESSENTIAL HYPERTENSION,PREOPERATIVE EXAMINATION, UNSPECIFIED, U[facility] Nuclear Medicine Procedures RADIOLOGY [address] [place] [address] Phone: Referral ID Status Reason Start Date Expiration Date Visits Requ ested Visits Authorized [id number] Closed 02/11/2012 02/10/2013 1 1 Encounter Details Date Type Department Care Team Description 02/15/[address] En[address] [facility] Barbara Bradley Imaging MD Monae [address] [facility] [address] [place], [place] [address] [phone] Social History Tobacco Use Types Packs/Day Years [...] tablet by mouth 0 02/18/2014 daily. B oebbjwp-V-gqpqn acid Take 1 capsule by mouth 0 [...] filedocumented in this encounter Care Teams Hydro Plant Operator Relationship Specialty Start Date End Date Toña Jones MD PCP - General Nephrology 11/25/11 01/01/14 Ingrid Santana RN Registered Nurse Transplant 02/10/12 documented as of this encounter
--- OUTSIDE RECORDS SUMMARY | 2022-07-07 10:56 | XMS_ITS | Encounter Summary ---
:1950 Author Organization [place] Address [address] [place] [address] Care Team Providers Name Role Phone Toña Jones MD Primary Care Provider Reason for Visit (Routine) - Closed Specialty Diagnoses / Procedures Referred By Contact Refer red To Contact Cardiology Diagnoses ECHO CLINIC COMPLETE ADULT Procedure Notes: DIABETES MELLITUS, TYPE 2,END STAGE RENAL DISEASE,Transplant eval,Performing Location?->[facility] Echocardiography Procedures RADIOLOGY [address] [place] [address] Phone: Referral ID Status Reason Start Date Expiration Date Visits Requ ested Visits Authorized [id number] Closed 01/21/2012 01/20/2013 1 1 Encounter Details Date Type Department Care Team Description 02/08/2012 [facility] Hass an, MD [address] [facility] 353 [place] [address] Diabetes mellitus, type 2 (H); Echocardiography Rajat German MD [address] [facility] [address] [place] [address] End stage renal disease (H) [address] [place] [address] Social History Tobacco Use Types [...] tablet by mouth 0 02/18/2014 daily. B pomlsvj-Y-csmzs acid Take 1 capsule by mouth 0 [...] - Clinic (PWB) (02/08/2012 1:13 PM CDT) [facility] Method Time Signature XCELERA RADIOLOGY Interpretation [...] disease documented in this encounter Care Teams Fisher Trawl Line Relationship Specialty Start Date End Date Toña Jones MD PCP - General Nephrology 11/25/11 01/01/14 documented as of this encounter
--- OUTSIDE RECORDS SUMMARY | 2022-07-07 10:56 | XMS_ITS | Encounter Summary ---
:1950 Author Organization [place] Address [address] [place] [address] Care Team Providers Name Role Phone Toña Jones MD Primary Care Provider Ingrid Santana RN Unavailable Unavailable Encounter Details Date Type Department Care Team Description 08/25/2012 Results Only LABORATORY RESULTS Barbara Bradley MD [address] [place], [place] [address] Social History Tobacco Use [...] AM Results f or this CROSSMATCH ALLO GLOBAL ACCOUNT EXECUTIVE procedure ar e in the results section. documented in this encounter Results HLA Flow T/B Crossmatch Allo (08/25/2012 9:49 AM GLOBAL ACCOUNT EXECUTIVE) [facility] Method Time Signature [...] Volume Laterality 08/25/2012 9:49 AM 3 9:06 GLOBAL ACCOUNT EXECUTIVE AM GLOBAL ACCOUNT EXECUTIVE Barbara Bradley MD LAB - IMMUNOLOGY ORDERABLES Performing Organization Address City/State/ZIP Code Phon e Number [facility] Immunology/Histocompatabil [place] [address], [place] [address] [facility] [address] Building, Room 3-580 HISTOTRAC documented in this encounter Visit Diagnoses Not on filedocumented in this encounter Care Teams Site Inspector Relationship Specialty Start Date End Date Toña Jones MD PCP - General Nephrology 11/25/11 01/01/14 Ingrid Santana RN Registered Nurse Transplant 02/10/12 documented as of this encounter
--- OUTSIDE RECORDS SUMMARY | 2022-07-07 10:56 | XMS_ITS | Encounter Summary ---
:1950 Author Organization [place] Address [facility] [place] [address] Care Team Providers Name Role Phone Toña [...] PCP - General Family Practice 01/02/[address] [place] [address] Ingrid Santana, RN Registered Nurse Transplant 02/10/12 documented as of this encounter
--- OUTSIDE RECORDS SUMMARY | 2022-07-07 10:56 | XMS_ITS | Encounter Summary ---
:1950 Author Organization [place] Address [address] [place] [address] Care Team Providers Name Role Phone Toña Jones MD Primary Care Provider Ingrid Santana RN Unavailable Unavailable Encounter Details Date Type Department Care Team Description 02/10/2012 Orders Only [facility] Anita Joshi MD Diabetes mellitus, type 2 (H); Clinic Imaging [address] [place] [address] End stage renal disease (H) [facility] [address] [place] [address] 1st Floor, Clinic [id number] [place] [address] [address] Social History Tobacco Use Types [...] disease documented in this encounter Care Teams Cherry Dipper Relationship Specialty Start Date End Date Toña Jones MD PCP - General Nephrology 11/25/11 01/01/14 Ingrid Santana RN Registered Nurse Transplant 02/10/12 documented as of this encounter
--- OUTSIDE RECORDS SUMMARY | 2022-07-07 10:56 | XMS_ITS | Encounter Summary ---
:1950 Author Organization [place] Address [address] [facility] [place] [address] Care Team Providers Name Role Phone Toña [...] 2 (H) Tommy Wilburn (Primar y Dx) [address] [phone] Social History Tobacco Use Types Packs/Day Years [...] this time. Patient to follow up with field coordinator. documented in this encounter Plan of Treatment Not on filedocumented as of this encounter Visit Diagnoses Diagnosis DM (diabetes mellitus), type 2 (H) - Ana ashley Type II or unspecified type diabetes aung litus without mention of complication, not stated as uncontrolled documented in this encounter Care Teams Machinist Automotive Relationship Specialty Start Date End Date Toña Jones MD PCP - General Nephrology 11/25/11 01/01/14 Ingrid Santana RN Registered Nurse Transplant 02/10/12 documented as of this encounter
--- OUTSIDE RECORDS SUMMARY | 2022-07-07 10:56 | XMS_ITS | Encounter Summary ---
:1950 Author Organization [place] Address [address] [place] [address] Care Team Providers Name Role Phone Toña Jones MD Primary Care Provider Ingrid Santana RN Unavailable Unavailable Encounter Details Date Type Department Care Team Description 02/08/2012 Results Only LABORATORY RESULTS Jeff Joshi MD [address] [place] [address] [place] [address] (Wo rk) Social History [...] I Single Antigen (02/08/2012 7:07 AM CDT) [facility] [...] LABORATORY Immunology/Histocompatabil [place], [place] [address] [facility] [address] Building, Room 3-580 HISTOTRAC documented in this encounter Visit Diagnoses Not on filedocumented in this encounter Care Teams Product Specialist Relationship Specialty Start Date End Date Toña Jones MD PCP - General Nephrology 11/25/11 01/01/14 Ingrid Santana, RN Registered Nurse Transplant 02/10/12 documented as of this encounter
--- OUTSIDE RECORDS SUMMARY | 2022-07-07 10:56 | XMS_ITS | Encounter Summary ---
:1950 Author Organization [place] Address [facility] [place] [address] Care Team Providers Name Role Phone Toña [...] on filedocumented in this encounter Care Teams Imaging Nurse Relationship Specialty Start Date End Date Toña Jones MD PCP - General Nephrology 11/25/11 01/01/14 Momo Forbes PCP - General Family Practice 01/02/[address] [place] [address] Ingrid Santana, RN Registered Nurse Transplant 02/10/12 documented as of this encounter
--- OUTSIDE RECORDS SUMMARY | 2022-07-07 10:56 | XMS_ITS | Encounter Summary ---
:1950 Author Organization [place] Address [facility] [place] [address] Care Team Providers Name Role Phone Toña [...] Associated Diagnosis Comme nts PATHOLOGY RESULT - [facility] 03/17/2012 8:24 AM CDT SCAN - ARCHIVE documented in this encounter Results PATHOLOGY RESULT - [facility] SCAN - ARCHIVE (03/17/2012 8:24 AM CDT) Specimen (Source) Anatomical Location Collection Method / Collectio n Time Received Time / Laterality Volume Narrative This result has an attachment that is no t available. [facility] Provider LAB - [facility] SPECIAL DIAG OR DERABLES documented in this encounter Visit Diagnoses Not on filedocumented in this encounter Care Teams Code Enforcement Officer Relationship Specialty Start Date End Date Toña Jones MD PCP - General Nephrology 11/25/11 01/01/14 Momo Forbes PCP - General Family Practice 01/02/14 [facility] [address] [place] [address] Ingrid Santana, RN Registered Nurse Transplant 02/10/12 documented as of this encounter
--- OUTSIDE RECORDS SUMMARY | 2022-07-07 10:56 | XMS_ITS | Encounter Summary ---
:1950 Author Organization [place] Address [address] [place] [address] Care Team Providers Name Role Phone Toña Jones MD Primary Care Provider Ingrid Santana RN Unavailable Unavailable Encounter Details Date Type Department Care Team Description 02/08/2012 Orders Only [facility] Jesus Cardenas Di abetes mellitus, type 2 (H); [facility] Gordo oneal MD End stage renal disease (H); [address] DIAGNOSIS [place] [address] Social History Tobacco Use Types Packs/Day Years [...] Results ABO type (02/08/2012 1:52 PM CDT) [facility] Method Time Signature ABO A [facility] RH(D) Pos [facility] Specimen 02/11/2012 [facility] Expires [facility] Specimen Anatomical Collection Method Collection Time Receive d Time (Source) Location / / Volume Laterality Blood specimen 02/08/2012 1:52 PM 012 1:54 (specimen) CDT PM CDT Chucho Joshi MD LAB - BLOOD BANK TEST ORDER Performing Organization Address City/State/ZIP Code Phon e Number [id number] [place] [address] LABS EKG 12-lead, tracing only (02/08/2012 7:30 AM CDT) [facility] Method Time Signature Ventricular Rate 60 BPM RADIOLOGY RESULTS Atrial Rate 60 BPM RADIOLOGY RESULTS VT Interval 186 ms RADIOLOGY RESULTS QRS Duration 104 ms RADIOLOGY RESULTS QT 440 ms RADIOLOGY RESULTS QTc 440 ms RADIOLOGY RESULTS P [place] 36 degrees RADIOLOGY RESULTS R AXIS 0 degrees RADIOLOGY RESULTS T [place] 36 degrees RADIOLOGY RESULTS Interpretation Sinus rhythm [...] DEFINED documented in this encounter Care Teams On Site Services Specialist Relationship Specialty Start Date End Date Toña Jones MD PCP - General Nephrology 11/25/11 01/01/14 Ingrid Santana, RN Registered Nurse Transplant 02/10/12 documented as of this encounter
--- OUTSIDE RECORDS SUMMARY | 2022-07-07 10:56 | XMS_ITS | Encounter Summary ---
:1950 Author Organization [place] Address [address] [facility] [address] Care Team Providers Name Role Phone Toña Jones MD Primary Care Provider Ingrid Santana RN Unavailable Unavailable Reason for Visit Reason Comments Heart Problem Consult prior to kidney proctor splant, needs EKG please. Encounter Details Date Type Department Care Team Description 02/10/2012 Office Visit Justice Barbara Bradley Unspecified es sential hypertension; [facility] [place] Pre-operative clearance Heart [address] [place] [address] Building [phone] 4th Floor, Clinic 4B (Work) [address] [address] Social History Tobacco Use Types [...] Stay Well and Call Maribel Nicole RN [phone] with any questions or concerns. You are scheduled for an Adenosine Stress Test 02/15/2012: Please check into the [facility] Waiting Room at 12:15pm for this test. [...] and you need to reschedule, please call [phone]. January 2012Tuesday 1 2 3 4 5 6 7 8 9 10 11 12 13 14 15 16 17 18 19 [facility] NEW 6:30 AM (30 min.) Evaluation, [facility] The Transplant [facility] FULL PULMONARY FUNCTION 8:00 AM (60 min.) 2, [facility] [place] Pulmonary Function Laboratory RADIOLOGY 8:05 AM (10 min.) [id number] [facility] Diagnostic Imaging UU PREP KIDNEY/PANCREAS TX 9:00 AM (120 min.) Angela Lopez RN [facility], Patient Learning Center [facility] TRANSPLANT CLASS KIDNEY 9:00 AM (90 min.) Class, [facility] Transplant The Transplant Center [facility] TILER 11:00 AM (30 min.) Coordinator, [facility] Care [facility] Transplant [facility] PRE-TX KIDNEY EVAL 11:00 AM (30 min.) Jesus Thomas MD Transplant Surgery LAB 11:30 AM (15 min.) Pwb, Op Lab [facility], Lab RADIOLOGY 1:30 PM (55 min.) [email or web address] [facility], Echocardiography 20 21 [facility] RETURN 7:00 AM (15 min.) Evaluation, [facility] The Transplant Center RADIOLOGY 7:00 AM (60 min.) Uicusr2 [facility] Diagnostic Imaging CONSULT HOD 8:00 AM (60 min.) Martina [address] RD [facility], [place], Nutrition Services [facility] TX SOCIAL WORK 9:00 AM (60 min.) 2, [facility] Tx Consult Room The Transplant Center [facility] PRE-TX KIDNEY EVAL 10:00 AM (60 min.) Joseph Quintana MD Nephrology [facility] PANCREAS-KIDNEY TX W/U 11:30 AM (30 min.) Barbara Bradley MD [facility] Physicians Heart 22 23 24 25 26 RADIOLOGY 12:30 PM (15 min.) Uninj [facility], Nuclear Medicine RADIOLOGY 1:15 PM (20 min.) Unr1 [facility], Nuclear Medicine RADIOLOGY 1:40 PM (30 min.) [facility] RADIOLOGY 3:10 PM (20 min.) [address], Nuclear Medicine 27 28 29 20 [...] On HD since Aug 2011. No past [place], stress tests or coronary angiogorams. No chest [...] 1 tablet by mouth daily. ??? 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 Perez MD grinder chipper. Divisions of Cardiology [place], [place] CC Patient Care Team: Toña Jones MD as PCP - General (Nephrology) Ingrid Santana, RN as Registered Nurse (Transplant) JESUS THOMAS documented in this encounter Plan of Treatment Not on filedocumented as of this encounter Visit Diagnoses Diagnosis Unspecified essential hypertension Pre-operative clearance Preoperative examination, unspecified documented in this encounter Care Teams Senior Technical Specialist Relationship Specialty Start Date End Date Toña Jones MD PCP - General Nephrology 11/25/11 01/01/14 Ingrid Santana, RN Registered Nurse Transplant 02/10/12 documented as of this encounter
--- OUTSIDE RECORDS SUMMARY | 2022-07-07 10:57 | XMS_ITS | Encounter Summary ---
:1950 Author Organization [place] Address [address] 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 Mut Lab Routine Diabetes mellit us, type [...] Routine 02/08/2012 7:25 AM Diabetes melli tus, [id number] MUT ANAL CDT type 2 (H) End [...] Tuberculosis by Quantiferon (02/08/2012 7:26 AM CDT) [facility] Method Time Signature M Tuberculosis Negative NEG [facility] Result [facility] M Tuberculosis 0.01 IU/mL [facility] Antigen Value [facility] Comment: This is a qualitative [...] ORDERABLES Performing Organization Address City/[facility] Phon e Number [address] LABS Antibody titer red cell (02/08/2012 7:26 AM CDT) [facility] Method Stacy Signature Antibody Titer Anti B [facility] titer IgM: [place] 4 Ig [place] [facility] Specimen Anatomical Collection Method Collection Time Receive d Time (Source) Location / / Volume Laterality Blood specimen 02/08/2012 7:26 AM 012 7:31 (specimen) CDT AM CDT Darian Joshi MD LAB - BLOOD BANK TEST ORDER Performing Organization Address [facility] Phon e Number [address] LABS Prostate spec antigen screen (02/08/2012 7:25 AM CDT) athologist Signature PSA 0.44 0 - 4 ug/L [facility] Comment: PSA results are [...] Number [facility] [address] LABS Hemoglobin A1c (02/08/2012 7:25 AM CDT) athologist Signature Hemoglobin A1C 5.3 4.3 - 6.0 [facility] LABS Specimen Anatomical Collection Method Collection Time Receive d Time (Source) Location / / Volume Laterality Blood specimen 02/08/2012 7:25 AM 012 7:30 (specimen) CDT AM CDT Darian Joshi MD LAB - BLOOD ORDERABLES Performing Organization Address City/State/ZIP Code Phon e Number [facility] [address] LABS C-peptide (02/08/2012 7:25 AM CDT) athologist Signature C Peptide 5.3 0.9 - 6.9 [facility] ng/mL [place] [facility] Specimen Anatomical Collection Method Collection Time Receive d Time (Source) Location / / Volume Laterality Blood specimen 02/08/2012 7:25 AM 012 7:30 (specimen) CDT AM CDT Darian Joshi MD LAB - BLOOD ORDERABLES Performing Organization Address City/[facility]/ZIP Code Phon e Number [address] LABS Cardiolipin antibody IgG and IgM (02/08/2012 7:25 AM CDT) [facility] gist Method Time Signature Cardiolipin IgG <15.0 0 - 15.0 [facility] Shaye Interpretation: ??Negative GPL UNI VERSITY CAMPUS [...] e Number [facility] [address] [place] [address] [place] [facility] LABS (ABNORMAL) Comprehensive metabolic panel (02/08/2012 7:25 AM CDT) [facility] gist Method Time Signature Sodium 143 133 - 144 [facility] mmol/L [facility] Potassium 4.4 3.4 - 5.3 [facility] mmol/L [facility] Chloride 106 94 - 109 [facility] mmol/L [facility] Carbon Dioxide 24 20 - 32 [facility] mmol/L [facility] Anion Gap 13 6 - 17 [facility] mmol/L [facility] Glucose 126 (H) 60 - 99 [facility] mg/dL [facility] Urea Nitrogen 32 (H) 7 - 30 [facility] mg/dL [facility] Creatinine 5.46 (H) 0.66 - [facility] 1.25 UNIVERSITY mg/dL CAMPUS LABS GFR Estimate 11 (L) >60 [facility] mL/min/1. [address] LABS GFR Estimate If 13 (L) >60 [facility] Black mL/min/1. [address] LABS Calcium 8.5 8.5 - [facility] 10.4 UNIVERSITY mg/dL CAMPUS LABS Bilirubin Total 0.8 0.2 - 1.3 [facility] mg/dL [facility] Albumin 3.8 3.3 - 4.9 [facility] g/dL [facility] Protein Total 6.8 6.8 - 8.8 [facility] g/dL [facility] Alkaline 92 40 - 150 [facility] Phosphatase U/L [facility] ALT 13 0 - 70 [facility] U/L [facility] AST 18 0 - 45 [facility] U/L [facility] Specimen Anatomical Collection Method Collection Time Receive d Time (Source) Location / / Volume Laterality Blood specimen 02/08/2012 7:25 AM 012 7:30 (specimen) CDT AM CDT Darian Joshi MD LAB - BLOOD ORDERABLES Performing Organization Address City/[facility]/ZIP Code Phon e Number [facility] [address] [place] [address] [facility] LABS Lipid Profile (02/08/2012 7:25 AM CDT) P athologist Signature Cholesterol 134 0 - 200 [facility] mg/dL CAMPUS LABS Comment: LDL Cholesterol is the primary guide to therapy. The NCEP recommends further evaluation of: patients with cholesterol greater than 200 mg/dL if additional risk facto rs are present, cholesterol greater than 240 mg/dL, triglycerides greater than 1 50 mg/dL, or HDL less than 40 mg/dL. Triglycerides 74 0 - 150 mg/dL [facility] LABS HDL Cholesterol 42 40 - 110 mg/dL [facility] LABS LDL Cholesterol Calculated 77 0 - 129 mg/dL [facility] LAB[facility] Comment: LDL Cholesterol is the primary guide to therapy: LDL-cholesterol goal in high risk patients is <100 mg/dL and in very high risk patients is <70 mg/dL. VLDL-Cholesterol 15 0 - 30 mg/dL [facility] LABS Cholesterol/HDL Ratio 3.2 0.0 - 5.0 [facility] LAB[facility] Specimen Anatomical Collection Method Collection Time Receive d Time (Source) Location / / Volume Laterality Blood specimen 02/08/2012 7:25 AM 012 7:30 (specimen) CDT AM CDT Darian Joshi MD LAB - BLOOD ORDERABLES Performing Organization Address City/[facility]/ZIP Code Phon e Number [facility] [address] [place] [address] [facility] ABO/Rh type and screen (02/08/2012 7:25 AM CDT) Patholo gist Method Time Signature ABO A [facility] RH(D) Pos [facility] Antibody Neg [facility] Screen [facility] Specimen 02/11/2012 [facility] Expires [facility] Specimen Anatomical Collection Method Collection Time Receive d Time (Source) Location / / Volume Laterality Blood specimen 02/08/2012 7:25 AM 012 7:30 (specimen) CDT AM CDT Darian Joshi MD LAB - BLOOD BANK TEST ORDER Performing Organization Address City/State/ZIP Code Phon e Number [facility] [address] [place] [address] [facility] Varicella zoster antibody IgG (02/08/2012 7:25 AM CDT) Patholo gist Method Time Signature Varicella 1023.00 [facility] Zoster IgG [facility] Immune Status CAMPUS LABS Ratio Vari Zoster Positive, [facility] IgG Interp suggests [place] prev. CAMPUS LABS exposure and probable immunity Specimen Anatomical Collection Method Collection Time Receive d Time (Source) Location / / Volume Laterality Blood specimen 02/08/2012 7:25 AM 012 7:30 (specimen) CDT AM CDT Darian Joshi MD LAB - BLOOD ORDERABLES Performing Organization Address City/State/ZIP Code Phon e Number [facility] [address] [place], [place] [phone] [place] [address] LABS Anti treponema EIA (02/08/2012 7:25 AM CDT) Analysis Performed At Patho logist Time Signature Treponema Negative NEG [facility] Antibody [place] [facility] Specimen Anatomical Collection Method Collection Time Receive d Time (Source) Location / / Volume Laterality Blood specimen 02/08/2012 7:25 AM 012 7:30 (specimen) CDT AM CDT Darian Joshi MD LAB - BLOOD ORDERABLES Performing Organization Address City/State/ZIP Code Phon e Number [facility] [address] [place], [place] [phone] [place] [address] LABS HIV 1 and 2 Antibody (02/08/2012 7:25 AM CDT) Analysis Performed At Patho logist Time Signature HIV 1&2 Negative NEG [facility] Antibody [facility] Specimen Anatomical Collection Method Collection Time Receive d Time (Source) Location / / Volume Laterality Blood specimen 02/08/2012 7:25 AM 012 7:30 (specimen) CDT AM CDT Darian Joshi MD LAB - BLOOD ORDERABLES Performing Organization Address City/State/ZIP Code Phon e Number [facility] [address] [place], [place] [phone] [place] [address] LABS Hepatitis C antibody (02/08/2012 7:25 AM CDT) Analysis Performed At Patho logist Time Signature Hepatitis C Negative NEG [facility] Antibody [facility] Specimen Anatomical Collection Method Collection Time Receive d Time (Source) Location / / Volume Laterality Blood specimen 02/08/2012 7:25 AM 012 7:30 (specimen) CDT AM CDT Darian Joshi MD LAB - BLOOD ORDERABLES Performing Organization Address City/[facility]/ZIP Code Phon e Number [address] LABS Hepatitis B surface antigen (02/08/2012 7:25 AM CDT) Analysis Performed At Patho logist Time Signature Hep B Surface Negative NEG [facility] Agn [facility] Specimen Anatomical Collection Method Collection Time Receive d Time (Source) Location / / Volume Laterality Blood specimen 02/08/2012 7:25 AM 012 7:30 (specimen) CDT AM CDT Darian Joshi MD LAB - BLOOD ORDERABLES Performing Organization Address City/[facility]/ZIP Code Phon e Number [address] LABS Hepatitis B surface antibody (02/08/2012 7:25 AM CDT) P athologist Signature Hep B Surface 135.0 [facility] LABS Comment: Positive, Patient is considered [...] [facility]/ZIP Code Phon e Number [address] LABS Hepatitis B core antibody (02/08/2012 7:25 AM CDT) Analysis Performed At Patho logist Time Signature Hepatitis B Negative NEG [facility] LABS Specimen Anatomical Collection Method Collection Time Receive d Time (Source) Location / / Volume Laterality Blood specimen 02/08/2012 7:25 AM 012 7:30 (specimen) CDT AM CDT Darian Joshi MD LAB - BLOOD ORDERABLES Performing Organization Address City/[facility]/ZIP Code Phon e Number [facility] [address] [place], [place] [phone] [place] [address] LABS EBV VCA IgG Antibody (02/08/2012 7:25 AM CDT) athologist Signature EBV VCA IgG 188.00 U/mL [facility] Antibody [place] [facility] Comment: Positive, suggests immunologic exposure. Specimen Anatomical Collection Method Collection Time Receive d Time (Source) Location / / Volume Laterality Blood specimen 02/08/2012 7:25 AM 012 7:30 (specimen) CDT AM CDT Darian Joshi MD LAB - BLOOD ORDERABLES Performing Organization Address City/[facility]/ZIP Code Phon e Number [address] [address] [facility] CMV IGG ANTIBODY (02/08/2012 7:25 AM CDT) athologist Signature CMV IgG 3.30 U/mL [facility] Antibody [place] [facility] Comment: Positive for anti-CMV IgG Specimen Anatomical Collection Method Collection Time Receive d Time (Source) Location / / Volume Laterality Blood specimen 02/08/2012 7:25 AM 012 7:30 (specimen) CDT AM CDT Darian Joshi MD LAB - BLOOD ORDERABLES Performing Organization Address City/[facility]/ZIP Code Phon e Number [address] [address] [facility] Immunology recipient: SOT HLA Workup (ABC,DR,DQ,PRA,Crossmatch) (02/08/2012 7:25 AM CDT) [facility] gist Method Time Signature Immunology SOT HLA WORKUP [facility] Test Name [facility] Immunology Specimen [facility] Result received - [facility] CAMPUS LABS report to follow upon completion. Specimen Anatomical Collection Method Collection Time Receive d Time (Source) Location / / Volume Laterality Blood specimen 02/08/2012 7:25 AM 012 7:30 (specimen) CDT AM CDT Darian Joshi MD LAB - IMMUNOLOGY ORDERABLES Performing Organization Address City/State/ZIP Code Phon e Number [address] [place] [address] [place] [facility] (ABNORMAL) CBC with platelets differential (02/08/2012 7:25 AM CDT) [facility] gist Method Time Signature WBC 6.3 4.0 - [facility] 11.0 [place] 10e9/L [place] [facility] RBC Count 3.97 (L) 4.4 - 5.9 [facility] 10e12/L [facility] Hemoglobin 12.0 (L) 13.3 - [facility] 17.7 g/dL [facility] Hematocrit 36.3 (L) 40.0 - [facility] 53.0 % [facility] MCV 91 78 - 100 [facility] fl [facility] MCH 30.2 26.5 - [facility] 33.0 pg [facility] MCHC 33.1 31.5 - [facility] 36.5 g/dL [facility] RDW 15.3 (H) 10.0 - [facility] 15.0 % [facility] Platelet Count 144 (L) 150 - 450 [facility] 10e9/L [facility] Diff Method Automated [facility] Method [facility] % Neutrophils 57.7 40 - 75 % [facility] % Lymphocytes 27.7 20 - 48 % [facility] % Monocytes 8.2 0 - 12 % [facility] % Eosinophils 6.1 (H) 0 - 6 % [facility] % Basophils 0.3 0 - 2 % [facility] % Immature 0.0 0 - 0.4 % [facility] Granulocytes [facility] Absolute 3.6 1.6 - 8.3 [facility] Neutrophil 10e9/L [facility] Absolute 1.7 0.8 - 5.3 [facility] Lymphocytes 10e9/L [facility] Absolute 0.5 0.0 - 1.3 [facility] Monocytes 10e9/L [facility] Absolute 0.4 0.0 - 0.7 [facility] Eosinophils 10e9/L [facility] Absolute 0.0 0.0 - 0.2 [facility] Basophils 10e9/L [facility] Abs Immature 0.0 0 - 0.03 [facility] Granulocytes 10e9/L [facility] Specimen Anatomical Collection Method Collection Time Receive d Time (Source) Location / / Volume Laterality Blood specimen 02/08/2012 7:25 AM 012 7:30 (specimen) CDT AM CDT Darian Joshi MD LAB - BLOOD ORDERABLES Performing Organization Address City/[facility]/ZIP Code Phon e Number [facility] [address] LABS Lupus panel (02/08/2012 7:25 AM CDT) Component Value Ref Test Analysis Performed At Patholo gist Range Method Time Signature Lupus Result Negative NEG [facility] (Note) [place] COMMENTS: [place] [facility] The INR is normal. APTT is normal. ??1:2 Mix is not indicated. DRVVT Screen is normal. Thrombin time is normal. NEGATIVE TEST; A LUPUS ANTICOAGULANT WAS NOT DETECTED IN THI S SPECIMEN WITHIN THE LIMITS OF THE TESTING REPERTOIRE. If the clinical picture is strongly suggestive of an antipho spholipid syndrome, recommend anticardiolipin and [id number]-[id number]-[id number] (IgG and IgM) antibody tests. Dee Duenas M.D. ??[phone] 02-09-2012. APTT'S: ?? Seconds Reagent = Stago [...] [facility]/ZIP Code Phon e Number [facility] [address] LABS Thrombin time (02/08/2012 7:25 AM CDT) athologist Signature Thrombin Time 16.7 13.0 - [facility] 19.0 sec CAMPUS LABS Specimen Anatomical Collection Method Collection Time Receive d Time (Source) Location / / Volume Laterality Blood specimen 02/08/2012 7:25 AM 012 7:30 (specimen) CDT AM CDT Darian Joshi MD LAB - BLOOD ORDERABLES Performing Organization Address City/[facility]/ZIP Code Phon e Number [facility] [address] [place], [place] [phone] [place] [address] LABS Partial thromboplastin time (02/08/2012 7:25 AM CDT) P athologist Signature PTT 29 22 - 37 sec [facility] Specimen Anatomical Collection Method Collection Time Receive d Time (Source) Location / / Volume Laterality Blood specimen 02/08/2012 7:25 AM 012 7:30 (specimen) CDT AM CDT Darian Joshi MD LAB - BLOOD ORDERABLES Performing Organization Address City/[facility]/ZIP Code Phon e Number [address] LABS INR (02/08/2012 7:25 AM CDT) P athologist Signature INR 1.11 0.86 - 1.14 [facility] LAB[facility] Specimen Anatomical Collection Method Collection Time Receive d Time (Source) Location / / Volume Laterality Blood specimen 02/08/2012 7:25 AM 012 7:30 (specimen) CDT AM CDT Darian Joshi MD LAB - BLOOD ORDERABLES Performing Organization Address City/State/ZIP Code Phon e Number [phone] [place] [address] LABS Factor 2 and 5 mutation analysis (02/08/2012 7:07 AM CDT) Component Value Ref Test Analysis Performed At [facility] gist Range Method Time Signature Copath Report Patient Name: ELINOR GUTHRIE MR#: [id number] Specimen #: [id number] Collected: 02/08/2012 07:07 Received: 02/08/2012 09:00 Reported: 02/11/2012 14:03 Ordering Phy(s): DARIAN JOSHI TEST(S) REQUESTED: A: Factor 5 Leiden and Factor 2 by PCR B: DNA Isolation, High purity extraction SPECIMEN DESCRIPTION: Blood METHODOLOGY: ?? The regions of genomic DNA containing the G1 691A Factor 5 gene mutation (Factor V Leiden) and the Factor 2(Prothrombin [id number]) gene mutation were simultaneously amplified using the [employer] chain reaction. ??The amplified products were digested with restri ction endonuclease TaqI and products were analyzed by gel electrop horesis. RESULTS: FACTOR 5-LEIDEN RESULTS: Mutation analyzed: ? 1691G>A Factor 5 Mutation Interpretation: ?ABSENT Factor 5 Mutation genotype: ?G/G FACTOR 2/PROTHROMBIN RESULTS: Mutation analyzed: ? 39079Q>A Factor 2 Mutation Interpretation: ?ABSENT Factor 2 Mutation genotype: ?G/G INTERPRETATION: The patient is negative for the Factor 5 mutation and negati ve for the Factor 2 mutation. This test was developed and its performance determined by [facility] ??Molecular Diagnostic Laboratory. It has [...] By: Liliya Stone MD TESTING LAB LOCATION: [place] [id number] [facility] [address] [place] [id number] COLLECTION SITE: Client: ??[facility] Location: ??UUTXO (B) Specimen Anatomical Collection Method Collection Time Receive d Time (Source) Location / / Volume Laterality 02/08/2012 7:07 AM 2 9:00 CDT AM CDT Provider Unknown LAB - GENOMICS Performing Organization Address City/State/ZIP Code Phon e Number [facility] (ABNORMAL) Routine UA with microscopic (02/08/2012 7:06 AM CDT) Component Value Ref Test Analysis Performed At [facility] gist Range Method Time Signature Color Urine Light Yellow [facility] [place] [facility] Appearance Urine Clear [facility] Glucose Urine 300 (A) NEG [facility] mg/dL [facility] Bilirubin Urine Negative NEG [facility] Ketones Urine Negative NEG [facility] mg/dL [facility] Specific [place] 1.010 1.003 - [facility] Urine 1.035 [facility] Blood Urine Negative NEG [facility] pH Urine 7.5 (H) 5.0 - [facility] 7.0 pH UNIVERSITY CAMPUS LABS Protein Albumin 300 (A) NEG [facility] Urine mg/dL UN[facility]ERSITY CAMPUS LABS Urobilinogen Normal 0.0 - [facility] mg/dL 2.0 UN[facility]ERSITY mg/dL CAMPUS LABS Nitrite Urine Negative NEG [facility] LABS Leukocyte Negative NEG [facility] Esterase Urine [facility] [place] [facility] Source Unspecified [facility] Urine [facility]AMP[facility] LABS WBC Urine 1 0 - 2 [facility] /HPF [facility] [place] [facility] RBC Urine <1 0 - 2 [facility] /HPF [facility] Hyaline Casts 3 (H) 0 - 2 [facility] /LPF [facility] [place] [facility] Specimen Anatomical Collection Method Collection Time Receive d Time (Source) Location / / Volume Laterality Urine specimen 02/08/2012 7:06 AM 012 7:08 (specimen) CDT AM CDT Darian Joshi MD LAB - URINE ORDERABLES Performing Organization Address City/State/ZIP Code Phon e Number [facility] [address] [facility] documented in this encounter Visit Diagnoses Diagnosis Diabetes mellitus, type 2 (H) Type II or unspecified type diabetes aung litus without mention of complication, not stated as uncontrolled End stage renal disease (H) End stage renal disease documented in this encounter Care Teams Manager Financial Services Relationship Specialty Start Date End Date Toña Jones MD PCP - General Nephrology 11/25/11 01/01/14 documented as of this encounter
--- OUTSIDE RECORDS SUMMARY | 2022-07-07 10:57 | XMS_ITS | Encounter Summary ---
:1950 Author Organization [place] Address Formerly [facility] [place] [address] Care Team Providers Name Role Phone Toña Jones MD Primary Care Provider Reason for Visit Reason Comments Transplant Evaluation Kidney transplant evaluation - Diabetes, End Stage Renal Disease Encounter Details Date Type Department Care Team Description 02/08/2012 Office Visit The Transplant Edda Cardenas, Ty Blink, DM (diabetes 2nd Floor, Clinic 2A MD mellitus), type 2 (H) Tommy Wilburn (Primar y Dx) [address] [phone] Social History Tobacco Use Types Packs/Day Years [...] (willing/able to accept information): Yes Any cultural factors/nondenominational beliefs that may influence understanding or compliance? [...] uncontrolled documented in this encounter Care Teams Route Agent Relationship Specialty Start Date End Date Toña Jones MD PCP - General Nephrology 11/25/11 01/01/14 documented as of this encounter
--- OUTSIDE RECORDS SUMMARY | 2022-07-07 10:57 | XMS_ITS | Encounter Summary ---
:1950 Author Organization [place] Address [address] [place] [address] Care Team Providers Name Role Phone Toña Jones MD Primary Care Provider Reason for Visit Reason Onset Date Comments Patient Reminder 02/01/2012 Encounter Details Date Type Department Care Team Description 02/01/2012 PRE VISIT Nephrology Joseph Quintana, Patient Reminder 2nd Floor, Clinic 2A MD Tommy Wilburn [address] [place] [address] [address] [place], [place] [phone] [place] [address] (Wo rk) [phone] Social History Tobacco Use Types Packs/Day Years [...] filedocumented in this encounter Care Teams Card Placer Relationship Specialty Start Date End Date Toña Jones MD PCP - General Nephrology 11/25/11 01/01/14 documented as of this encounter
--- OUTSIDE RECORDS SUMMARY | 2022-07-07 10:57 | XMS_ITS | Encounter Summary ---
:1950 Author Organization [place] Address [address] [place] [address]. [place] [address] Care Team Providers Name Role Phone Toña Jones MD Primary Care Provider Ingrid Santana RN Unavailable Unavailable Momo Forbes Primary Care Provider Encounter Details Date Type Department Care Team Description 12/13/2005 Historic Results [facility] Provider, MD Marcela Social History Tobacco [...] filedocumented in this encounter Care Teams Bottle House Quality Control Technician Relationship Specialty Start Date End Date Toña Jones MD PCP - General Nephrology 11/25/11 01/01/14 Momo Forbes PCP - General Family Practice 01/02/[address] [address] Siers, Ingrid A, RN Registered Nurse Transplant 02/10/12 documented as of this encounter
--- OUTSIDE RECORDS SUMMARY | 2022-07-07 10:57 | XMS_ITS | Encounter Summary ---
:1950 Author Organization [place] Address [address] [place] [address]. [place] [address] Care Team Providers Name Role Phone Toña Jones MD Primary Care Provider Ingrid Santana RN Unavailable Unavailable Momo Forbes Primary Care Provider Encounter Details Date Type Department Care Team Description 05/20/2010 Historic Results [facility] Provider, MD Marcela Social History [...] on filedocumented in this encounter Care Teams Lopper Relationship Specialty Start Date End Date Toña Jones MD PCP - General Nephrology 11/25/11 01/01/14 Momo Forbes PCP - General Family Practice 01/02/[address] [address] Siers, Ingrid A, RN Registered Nurse Transplant 02/10/12 documented as of this encounter
--- OUTSIDE RECORDS SUMMARY | 2022-07-07 10:57 | XMS_ITS | Encounter Summary ---
:1950 Author Organization [place] Address [address] [place] [address]. [place] [address] Care Team Providers Name Role Phone Toña Jones MD Primary Care Provider Ingrid Santana RN Unavailable Unavailable Momo Forbes Primary Care Provider Encounter Details Date Type Department Care Team Description 05/12/2011 Historic Results [facility] Provider, MD Marcela Social [...] on filedocumented in this encounter Care Teams Typesetter Apprentice Relationship Specialty Start Date End Date Toña Jones MD PCP - General Nephrology 11/25/11 01/01/14 Momo Forbes PCP - General Family Practice 01/02/[address] [address] Siers, Ingrid A, RN Registered Nurse Transplant 02/10/12 documented as of this encounter
--- OUTSIDE RECORDS SUMMARY | 2022-07-07 10:57 | XMS_ITS | Encounter Summary ---
:1950 Author Organization [place] Address [address] [place] [address]. [place] [address] Care Team Providers Name Role Phone Toña Jones MD Primary Care Provider Ingrid Santana RN Unavailable Unavailable Momo Forbes Primary Care Provider Encounter Details Date Type Department Care Team Description 04/12/2007 Historic Results [facility] Provider, MD [...] filedocumented in this encounter Care Teams [employer] Teacher Relationship Specialty Start Date End Date Toña Jones MD PCP - General Nephrology 11/25/11 01/01/14 Momo Forbes PCP - General Family Practice 01/02/[address] [address] Siers, Ingrid A, RN Registered Nurse Transplant 02/10/12 documented as of this encounter
--- OUTSIDE RECORDS SUMMARY | 2022-07-07 10:57 | XMS_ITS | Encounter Summary ---
:1950 Author Organization [place] Address [address] [facility] [place] [address] Care Team Providers Name Role Phone Unavailable Primary Care Provider Unavailable Encounter Details Date Type Department Care Team Description 07/30/2009 Results [facility] Results [address] [address] [place] [id number] Social History Tobacco Use Types Packs/Day Years Used Date Smoking Tobacco: Never Assessed Sex Assigned at Date Recorded Not on file documented as of this encounter Plan of Treatment Not on filedocumented as of this encounter Procedures Procedure Name Priority Date/Time Associated Diagnosis [facility] RT DUPLEX Routine 07/30/2009 12:32 PM Results for this EXTREM VENOUS,UNI TERRITORY SUPERVISOR procedure are in OR LTD the results section. documented in this encounter Results RT DUPLEX EXTREM VENOUS,UNI OR LTD (07/30/2009 12:32 PM TERRITORY SUPERVISOR) Anatomical Region Laterality Modality Other Specimen (Source) Anatomical Collection Method Collection Time Re ceived Time Location / / Volume Laterality 07/30/2009 12:32 PM TERRITORY SUPERVISOR Impressions 07/30/2009 4:21 PM TERRITORY SUPERVISOR ULTRASOUND VENOUS LOWER EXTREMITY UNILAT ERAL RIGHT [...]
--- OUTSIDE RECORDS SUMMARY | 2022-07-07 10:57 | XMS_ITS | Encounter Summary ---
:1950 Author Organization [place] Address [address] [facility] [place] [address] Care Team Providers Name Role Phone Toña Jones MD Primary Care Provider Ingrid Santana RN Unavailable Unavailable Momo Forbes Primary Care Provider Encounter Details Date Type Department Care Team Description 08/30/2011 Historic Results [facility] Provider, MD Marcela Social History Tobacco Use Types Packs/Day Years Used Date Smoking Tobacco: Never Assessed Sex Assigned at Date Recorded Not on file documented as of this encounter Plan of Treatment Not on filedocumented as of this encounter Procedures Procedure Name Priority Date/Time Associated Diagnosis Comme nts EKG CARDIAC - HIM SCAN 08/30/2011 8:28 AM WOOL SPOTTER - ARCHIVE ECHO CARDIAC - HIM SCAN 08/30/2011 8:27 AM WOOL SPOTTER - ARCHIVE documented in this encounter Results EKG CARDIAC - HIM SCAN - ARCHIVE (08/30/2011 8:28 AM WOOL SPOTTER) Specimen (Source) Anatomical Location Collection Method / Collectio n Time Received Time / Laterality Volume Narrative This result has an attachment that is no t available. Gich Provider ECG ORDERABLES ECHO CARDIAC - HIM SCAN - ARCHIVE (08/30/2011 8:27 AM WOOL SPOTTER) Anatomical Region Laterality Modality Echocardiography Specimen (Source) Anatomical Location Collection Method / Collectio n Time Received Time / Laterality Volume Narrative This result has an attachment that is no t available. Marcela Provider CV ECHO ORDERABLES documented in this encounter Visit Diagnoses Not on filedocumented in this encounter Care Teams Technical Support Director Relationship Specialty Start Date End Date Toña Jones MD PCP - General Nephrology 11/25/11 01/01/14 Momo Forbes PCP - General Family Practice 01/02/14 [facility] [address] [place] [address] Ingrid Santana, RN Registered Nurse Transplant 02/10/12 documented as of this encounter
--- OUTSIDE RECORDS SUMMARY | 2022-07-07 10:57 | XMS_ITS | Encounter Summary ---
:1950 Author Organization [place] Address [address] [facility] [place] [address] Care Team Providers Name Role Phone Toña Jones MD Primary Care Provider Ingrid Santana RN Unavailable Unavailable Encounter Details Date Type Department Care Team Description 12/07/2011 Orders Only Nephrology Chucho Joshi MD Dialysis patient (H) 2nd Floor, Clinic [address]A [address] [place] (Primary Dx) Tommy Ruiz[address] [place] [address] [place] [address] [place], [place] [phone] (Wo rk) [address] [phone] Social History Tobacco Use Types Packs/Day Years Used Date Smoking Tobacco: Never Assessed Sex Assigned at Date Recorded Not on file documented as of this encounter Plan of Treatment Not on filedocumented as of this encounter Visit Diagnoses Diagnosis Dialysis patient (H) - Primary Renal dialysis status documented in this encounter Care Teams Director Design Relationship Specialty Start Date End Date Toña Jones MD PCP - General Nephrology 11/25/11 01/01/14 Ingrid Santana RN Registered Nurse Transplant 02/10/12 documented as of this encounter
--- OUTSIDE RECORDS SUMMARY | 2022-07-07 10:57 | XMS_ITS | Encounter Summary ---
:1950 Author Organization [place] Address [address] [place] [address] Care Team Providers Name Role Phone Toña Jones MD Primary Care Provider Encounter Details Date Type Department Care Team Description 02/08/2012 Orders Only [facility] Thomas, Ty Blink, End sta ge kidney Pulmonary Function MD disease ( H) (Primary Laboratory Dx) 6th Floor [address] [place] [address] Social History Tobacco Use [...] Lab Testing (Generic) (02/08/2012 8:35 AM CDT) [facility] Method Time Signature Pulmonary COPATH Function Test Name: ? ELINOR GUTHRIE ? ID: ?[id number] Doctor: ?JESUS THOMAS ?Height: ?72.00 in ? [...] INTERPRETATION: The FVC, FEV1, FEV1/FVC ratio and ZSP56-31% are within normal limits. ??The inspiratory flow [...] disease documented in this encounter Care Teams Biodiesel Engine Specialist Relationship Specialty Start Date End Date Toña Jones MD PCP - General Nephrology 11/25/11 01/01/14 documented as of this encounter
--- OUTSIDE RECORDS SUMMARY | 2022-07-07 10:57 | XMS_ITS | Encounter Summary ---
:1950 Author Organization [place] Address [address] [place] [address]. [place] [address] Care Team Providers Name Role Phone Toña Jones MD Primary Care Provider Ingrid Santana RN Unavailable Unavailable Momo Forbes Primary Care Provider Encounter Details Date Type Department Care Team Description 06/05/2008 Historic Results [facility] Provider, [...] filedocumented in this encounter Care Teams Steam Tank Operator Relationship Specialty Start Date End Date Toña Jones MD PCP - General Nephrology 11/25/11 01/01/14 Momo Forbes PCP - General Family Practice 01/02/[address] [address] Siers, Ingrid A, RN Registered Nurse Transplant 02/10/12 documented as of this encounter
--- OUTSIDE RECORDS SUMMARY | 2022-07-07 10:57 | XMS_ITS | Encounter Summary ---
:1950 Author Organization [place] Address [address] [place] [address] Care Team Providers Name Role Phone Toña Jones MD Primary Care Provider Reason for Visit Reason Onset Date Comments Pre Visit Planning - Done 02/07/2012 Consult prior to kidney transplant, needs EKG please. Encounter Details Date Type Department Care Team Description 02/07/2012 PRE VISIT [facility] Barbara Bradley Pre Visit Planning - Physicians Orestes Licona MD Done (Consult prior to [facility] [address] kidney transplant, [place] [address] needs EKG please.) 4th Floor, Clinic [address] [address] Social History Tobacco Use Types [...] on filedocumented in this encounter Care Teams Tier In Relationship Specialty Start Date End Date Toña Jones MD PCP - General Nephrology 11/25/11 01/01/14 documented as of this encounter
--- OUTSIDE RECORDS SUMMARY | 2022-07-07 10:57 | XMS_ITS | Encounter Summary ---
:1950 Author Organization [place] Address [address] [facility] [place] [address] Care Team Providers Name Role Phone Toña [...] on filedocumented in this encounter Care Teams Movie Projectionist Relationship Specialty Start Date End Date Toña Jones MD PCP - General Nephrology 11/25/11 01/01/14 Momo Forbes PCP - General Family Practice 01/02/14 [facility] [address] [place] [address] Ingrid Santana, RN Registered Nurse Transplant 02/10/12 documented as of this encounter
--- OUTSIDE RECORDS SUMMARY | 2022-07-07 10:57 | XMS_ITS | Encounter Summary ---
:1950 Author Organization [place] Address [address] [place] [address] Care Team Providers Name Role Phone Toña [...] filedocumented in this encounter Care Teams Electric Organ Checker Relationship Specialty Start Date End Date Toña Jones MD PCP - General Nephrology 11/25/11 01/01/14 Momo Forbes PCP - General Family Practice 01/02/14 [facility] [address] [place] [address] Ingrid Santana, RN Registered Nurse Transplant 02/10/12 documented as of this encounter
--- OUTSIDE RECORDS SUMMARY | 2022-07-07 10:57 | XMS_ITS | Encounter Summary ---
:1950 Author Organization [place] Address [facility] [place] [address] Care Team Providers Name Role Phone Toña Jones MD Primary Care Provider Reason for Referral - Closed Specialty Diagnoses / Procedures Referred By Contact Refer red To Contact Diagnoses Diabetes mellitus, type 2 (H) End stage renal disease (H) [facility] Renal 2nd Floor, [place] [phone] Referral ID Status Reason Start Date Expiration Date Visits Requ ested Visits Authorized [id number] Closed 12/02/2011 05/30/2012 1 1 - Closed Specialty Diagnoses / Procedures Referred By Contact Refer red To Contact Diagnoses Diabetes mellitus, type 2 (H) End stage renal disease (H) [facility], [place] [phone] Referral ID Status Reason Start Date Expiration Date Visits Requ ested Visits Authorized [id number] Closed 12/02/2011 05/30/2012 1 1 - Closed Specialty Diagnoses / Procedures Referred By Contact Refer red To Contact Diagnoses Diabetes mellitus, type 2 (H) End stage renal disease (H) [facility] Renal 2nd Floor, [place] [phone] Referral ID Status Reason Start Date Expiration Date Visits Requ ested Visits Authorized [id number] Closed 12/02/2011 05/30/2012 1 1 - Closed Specialty Diagnoses / Procedures Referred By Contact Refer red To Contact Diagnoses Diabetes mellitus, type 2 (H) End stage renal disease (H) [facility] Renal 2nd Floor, Clinic 2A [place] [phone] Referral ID Status Reason Start Date Expiration Date Visits Requ ested Visits Authorized [id number] Closed 12/02/2011 05/30/2012 1 1 - Closed Specialty Diagnoses / Procedures Referred By Contact Refer red To Contact Diagnoses Diabetes mellitus, type 2 (H) End stage renal disease (H) [facility], [place] [phone] Referral ID Status Reason Start Date Expiration Date Visits Requ ested Visits Authorized [id number] Closed 12/02/2011 05/30/2012 1 1 - Closed Specialty Diagnoses / Procedures Referred By Contact Refer red To Contact Diagnoses Diabetes mellitus, type 2 (H) End stage renal disease (H) [facility], [place] [phone] Referral ID Status Reason Start Date Expiration Date Visits Requ ested Visits Authorized [id number] Closed 12/02/2011 05/30/2012 1 1 - Closed Specialty Diagnoses / Procedures Referred By Contact Refer red To Contact Diagnoses Diabetes mellitus, type 2 (H) End stage renal disease (H) [facility] Renal 2nd Floor, Clinic [address]A [address] [phone] Referral ID Status Reason Start Date Expiration Date Visits Requ ested Visits Authorized [id number] Closed 12/02/2011 05/30/2012 1 1 - Closed Specialty Diagnoses / Procedures Referred By Contact Refer red To Contact Diagnoses Diabetes mellitus, type 2 (H) End stage renal disease (H) [facility] Renal 2nd Floor, Clinic [address]A [address] [phone] Referral ID Status Reason Start Date Expiration Date Visits Requ ested Visits Authorized [id number] Closed 12/02/2011 05/30/2012 1 1 - Closed Specialty Diagnoses / Procedures Referred By Contact Refer red To Contact Diagnoses Diabetes mellitus, type 2 (H) End stage renal disease (H) [facility] Renal 2nd Floor, Clinic 2A [address] [phone] Referral ID Status Reason Start Date Expiration Date Visits Requ ested Visits Authorized [id number] Closed 12/02/2011 05/30/2012 1 1 Encounter Details Date Type Department Care Team Description 12/02/2011 Orders Only Nephrology Ingrid Santana, Diabetes mellitus, type 2 (H ); 2nd Floor, Clinic 2A RN End stage renal disease (H) [address] [phone] Social History Tobacco Use Types [...] 2 (H) End stage renal disease (H) TAPPER SUPERVISOR Referral Routine Diabetes mellitus, Ordered: 12/02/2011 REFERRAL type 2 (H) End stage renal disease (H) NEPHROLOGY ADULT REFERRAL Referral Routine Diabetes mellit us, Ordered: 12/02/2011 type 2 (H) End stage renal disease (H) GENERAL SURG ADULT Referral Routine Diabetes mellitus, Ord ered: 12/02/2011 REFERRAL type 2 (H) End stage renal disease (H) BRANCH CUSTOMER SERVICE REPRESENTATIVE REFERRAL Referral Routine Diabetes mellitu s, Ordered: [...] disease documented in this encounter Care Teams Underwriter Relationship Specialty Start Date End Date Toña Jones MD PCP - General Nephrology 11/25/11 01/01/14 documented as of this encounter
--- OUTSIDE RECORDS SUMMARY | 2022-07-07 10:57 | XMS_ITS | Encounter Summary ---
:1950 Author Organization [place] Address [address] [place] [address]. [place] [address] Care Team Providers Name Role Phone Toña Jones MD Primary Care Provider Ingrid Santana RN Unavailable Unavailable Momo Forbes Primary Care Provider Encounter Details Date Type Department Care Team Description 01/14/2006 Historic Results [facility] [...] filedocumented in this encounter Care Teams Senior Design Engineer Relationship Specialty Start Date End Date Toña Jones MD PCP - General Nephrology 11/25/11 01/01/14 Momo Forbes PCP - General Family Practice 01/02/[address] [address] Siers, Ingrid A, RN Registered Nurse Transplant 02/10/12 documented as of this encounter
--- OUTSIDE RECORDS SUMMARY | 2022-07-07 10:57 | XMS_ITS | Encounter Summary ---
:1950 Author Organization [place] Address [address] [place] [address]. [place] [address] Care Team Providers Name Role Phone Toña Jones MD Primary Care Provider Ingrid Santana RN Unavailable Unavailable Momo Forbes Primary Care Provider Encounter Details Date Type Department Care Team Description 01/06/2011 Historic Results [facility] Provider, MD Marcela Social History Tobacco Use [...] filedocumented in this encounter Care Teams Qa Auditor Relationship Specialty Start Date End Date Toña Jones MD PCP - General Nephrology 11/25/11 01/01/14 Momo Forbes PCP - General Family Practice 01/02/[address] [address] Siers, Ingrid A, RN Registered Nurse Transplant 02/10/12 documented as of this encounter
--- OUTSIDE RECORDS SUMMARY | 2022-07-07 10:57 | XMS_ITS | Encounter Summary ---
:1950 Author Organization [place] Address [address] [facility] [place] [address] Care Team Providers Name Role Phone Toña [...] Family Practice 01/02/14 [facility] [address] [place] [address] Ingrid Santana, RN Registered Nurse Transplant 02/10/12 documented as of this encounter
--- OUTSIDE RECORDS SUMMARY | 2022-07-07 10:57 | XMS_ITS | Encounter Summary ---
:1950 Author Organization [place] Address [address] [place] [address] Care Team Providers Name Role Phone Toña [...] filedocumented in this encounter Care Teams Leather Dresser Relationship Specialty Start Date End Date Toña Jones MD PCP - General Nephrology 11/25/11 01/01/14 Momo Forbes PCP - General Family Practice 01/02/14 [facility] [address] [place] [address] Ingrid Santana, RN Registered Nurse Transplant 02/10/12 documented as of this encounter
--- OUTSIDE RECORDS SUMMARY | 2022-07-07 10:57 | XMS_ITS | Encounter Summary ---
:1950 Author Organization [place] Address [address] [facility] [place] [address] Care Team Providers Name Role Phone Toña [...] on filedocumented in this encounter Care Teams Folder Machine Relationship Specialty Start Date End Date Toña Jones MD PCP - General Nephrology 11/25/11 01/01/14 Momo Forbes PCP - General Family Practice 01/02/14 [facility] [address] [place] [address] Ingrid Santana, RN Registered Nurse Transplant 02/10/12 documented as of this encounter
--- OUTSIDE RECORDS SUMMARY | 2022-07-07 10:57 | XMS_ITS | Encounter Summary ---
:1950 Author Organization [place] Address [address] [place] [address]. [place] [address] Care Team Providers Name Role Phone Toña Jones MD Primary Care Provider Ingrid Santana RN Unavailable Unavailable Momo Forbes Primary Care Provider Encounter Details Date Type Department Care Team Description 01/12/2010 Historic Results [facility] [...] on filedocumented in this encounter Care Teams Veterinary Parasitologist Relationship Specialty Start Date End Date Tñoa Jones MD PCP - General Nephrology 11/25/11 01/01/14 Momo Forbes PCP - General Family Practice 01/02/[address] [address] Siers, Ingrid A, RN Registered Nurse Transplant 02/10/12 documented as of this encounter
--- OUTSIDE RECORDS SUMMARY | 2022-07-07 10:57 | XMS_ITS | Encounter Summary ---
:1950 Author Organization [place] Address [address] [facility] [place] [address] Care Team Providers Name Role Phone Toña Jones MD Primary Care Provider Blayne Santana RN Unavailable Unavailable Reason for Visit Reason Comments Transplant Evaluation Encounter Details Date Type Department Care Team Description 02/08/2012 Office Visit Transplant Surgery Jesus Cardenas, DM (di abetes mellitus), type 2 (H); Clinic End stage renal disease (H) 2nd Floor, Clinic [address] [phone] Social History Tobacco Use Types Packs/Day Years [...] from the original note were not included. 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 Smoking status: [...] Take 1 tablet by mouth daily. B fzqtkea-H-kfbbm acid (NEPHROCAPS) 1 MG capsule Take 1 [...] Test 02/08/12 0725 INR 1.11 F2MAR -- [id number] -- Lipid Profile: Cholesterol Date Value Range [...] 09, 2012 3:21 PM Pre Abdominal Organ Maintenance Worker Municipal Evaluation Note: present: Dr. Jesus Cardenas Attendees: self Type of transplant: kidney Required Topic(s) Discussed: Evaluation notification document, SRTR data, Multiple wait list brochure, MENTALLY IMPAIRED TEACHER, Evaluation/approval process, Selection committee process, Wait list [...] spent with patient: 15 minutes -- Nurse Maintenance Worker Municipal Pager [phone] BLAYNE SANTANA -- Nurse Maintenance Worker Municipal Pager [phone] >> Lena Sánchez RN santino Feb 08, [...] disease documented in this encounter Care Teams Senior Electronics Design Engineer Relationship Specialty Start Date End Date Toña Jones MD PCP - General Nephrology 11/25/11 01/01/14 Blayne Santana, RN Registered Nurse Transplant 02/10/12 documented as of this encounter
--- OUTSIDE RECORDS SUMMARY | 2022-07-07 10:57 | XMS_ITS | Encounter Summary ---
:1950 Author Organization [place] Address [address] [facility] [place] [address] Care Team Providers Name Role Phone Toña [...] - HIM SCAN - 11/02/2005 8:27 AM ALODIZE MACHINE OPERATOR ARCHIVE LAB RESULT - HIM SCAN - 11/02/2005 8:25 AM ALODIZE MACHINE OPERATOR ARCHIVE documented in this encounter Results LAB RESULT - HIM SCAN - ARCHIVE (11/02/2005 8:27 AM ALODIZE MACHINE OPERATOR) Specimen (Source) Anatomical Location Collection Method / Collectio n Time Received Time / Laterality Volume Narrative This result has an attachment that is no t available. Marcela Provider LAB - BLOOD ORDERABLES LAB RESULT - HIM SCAN - ARCHIVE (11/02/2005 8:25 AM ALODIZE MACHINE OPERATOR) Specimen (Source) Anatomical Location Collection Method / Collectio n Time Received Time / Laterality Volume Narrative This result has an attachment that is no t available. Marcela Provider LAB - BLOOD ORDERABLES documented in this encounter Visit Diagnoses Not on filedocumented in this encounter Care Teams Expander Relationship Specialty Start Date End Date Toña Jones MD PCP - General Nephrology 11/25/11 01/01/14 Momo Forbes PCP - General Family Practice 01/02/[address] [address] Ingrid Santana, RN Registered Nurse Transplant 02/10/12 documented as of this encounter
--- OUTSIDE RECORDS SUMMARY | 2022-07-07 10:57 | XMS_ITS | Encounter Summary ---
:1950 Author Organization [place] Address [address] [place] [address]. [place] [address] Care Team Providers Name Role Phone Toña Jones MD Primary Care Provider Ingrid Santana RN Unavailable Unavailable Momo Forbes Primary Care Provider Encounter Details Date Type Department Care Team Description 05/25/2010 Historic Results [facility] Provider, MD Marcela Social History Tobacco [...] filedocumented in this encounter Care Teams Mechanical Maintenance Engineer Relationship Specialty Start Date End Date Toña Jones MD PCP - General Nephrology 11/25/11 01/01/14 Momo Forbes PCP - General Family Practice 01/02/[address] [address] Siers, Ingrid A, RN Registered Nurse Transplant 02/10/12 documented as of this encounter
--- OUTSIDE RECORDS SUMMARY | 2022-07-07 10:57 | XMS_ITS | Encounter Summary ---
:1950 Author Organization [place] Address [address] [place] [address]. [place] [address] Care Team Providers Name Role Phone Toña Jones MD Primary Care Provider Ingrid Santana RN Unavailable Unavailable Momo Forbes Primary Care Provider Encounter Details Date Type Department Care Team Description 01/02/2008 Historic Results [facility] Provider, MD Marcela Social History [...] on filedocumented in this encounter Care Teams Baggage Screener Relationship Specialty Start Date End Date Toña Jones MD PCP - General Nephrology 11/25/11 01/01/14 Momo Forbes PCP - General Family Practice 01/02/[address] [address] Siers, Ingrid A, RN Registered Nurse Transplant 02/10/12 documented as of this encounter
--- OUTSIDE RECORDS SUMMARY | 2022-07-07 10:57 | XMS_ITS | Encounter Summary ---
:1950 Author Organization [facility] Address [address] [place] [address]. [place] [address] Care Team Providers Name Role Phone Toña Jones MD Primary Care Provider Ingrid Santana RN Unavailable Unavailable Momo Forbes Primary Care Provider Encounter Details Date Type Department Care Team Description 01/20/2012 Historic Results [facility] Provider, MD [...] filedocumented in this encounter Care Teams Collections Manager Relationship Specialty Start Date End Date Toña Jones MD PCP - General Nephrology 11/25/11 01/01/14 Momo Forbes PCP - General Family Practice 01/02/[address] [address] Siers, Ingrid A, RN Registered Nurse Transplant 02/10/12 documented as of this encounter
--- OUTSIDE RECORDS SUMMARY | 2022-07-07 10:58 | XMS_ITS | Encounter Summary ---
:1950 Author Organization [place] Address [facility] [place] [address] Care Team Providers Name Role Phone Toña Jones MD Primary Care Provider Ingrid Santana RN Unavailable Unavailable Momo Forbes Primary Care Provider Encounter Details Date Type Department Care Team Description 01/28/1998 [facility] Cesar Tejeda [facility] [address] [place], [place] [address] (Wo rk) Social History Tobacco Use Types Packs/Day Years Used Date Smoking Tobacco: Never Assessed Sex Assigned at Date Recorded Not on file documented as of this encounter Plan of Treatment Not on filedocumented as of this encounter Visit Diagnoses Not on filedocumented in this encounter Care Teams Sonogram Technician Relationship Specialty Start Date End Date Toña Jones MD PCP - General Nephrology 11/25/11 01/01/14 Momo Forbes PCP - General Family Practice 01/02/[address] [address] Ingrid Santana, RN Registered Nurse Transplant 02/10/12 documented as of this encounter
--- OUTSIDE RECORDS SUMMARY | 2022-07-07 10:58 | XMS_ITS ---
:1950 Author Organization [place] Address [address] [place] [address] Care Team Providers Name Role Phone Momo Forbes Primary Care Provider Joseph Quintana MD Unavailable [facility] [place] [facility] [place] - MNUMOrgan Received: Right KidneyTransplanted on 02/02/2014Marked as Active Follow-up on 02/02/2014 Kidney CoordinatorCHAPO [place]: N/AFax: N/AEmail: N/A [place] Organ Diagnosis Organ Primary Contributory Kidney Diabetes Mellitus - Type II Infection History Noted Survival Infection Treatment Organism Resolved 09/18/2020 6 years 7 months Gram-negative Surgery, Medical bacterial infection management 09/17/2020 6 years 7 months Bacterial infection Antibiotics Donor Information Organ ABO Source Meets Risk HLA Match Mismatches [facility] Criteria Right Kidney A1 DBD No A: [...] N/A G German Jones MD Referring Physician [phone] [email or web address] Events Post-Transplant Pre-Transplant Admitted: 02/02/2014 Referred: 12/07/2011 Transplanted: 02/02/2014 Evaluation began: 02/08/2012 Discharged: 02/08/2014 Committee: 02/16/2012 Center waitlisted: 02/18/2012 Dialysis History Dialysis History Start End Type Comments Center 09/06/2011 02/02/2014 Hemo Dialysis Days per week -- [facility] ([facility] Dialysis Center Information Center Phone Fax Address [facility] [phone] [address] (ESRD) [facility] [phone]
--- OUTSIDE RECORDS SUMMARY | 2022-07-07 10:58 | XMS_ITS | Encounter Summary ---
:1950 Author Organization [facility] Address [address] [facility] 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
--- OUTSIDE RECORDS SUMMARY | 2022-07-07 10:58 | XMS_ITS | Encounter Summary ---
:1950 Author Organization [place] Address [address] [place] [address]. 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
== END 2022-07-07 10:40 | disposition home or self-care (01) ==
LOC: WOUND 10:39
PROVIDERS: PCP Family Medicine; Visit Provider Surgery
DX: L89.323 Pressure ulcer of left buttock, stage 3 (principal); L89.313 Pressure ulcer of right buttock, stage 3; E11.622 Type 2 diabetes mellitus with other skin ulcer; L97.822 Non-pressure chronic ulcer of other part of left lower leg with fat layer exposed
CPT/HCPCS: 99215

== ENCOUNTER 2022-07-10 12:50 | Inpatient (IN) | payer MEDICARE, BC, SELFPAY ==
[2022-07-10] VITALS (30 sets, daily range): BP systolic 100–151; BP diastolic 53–96; PULSE 60–75; RESP 16–24; TEMP 36.7–37.1; O2SAT 86–95; BMI 40.7; BMI 41.9
--- NOTE | 2022-07-10 13:30 | CRLHL7_ITS ---
For Patients: As a result of the Century Cures Act, medical imaging exams and procedure reports are released immediately into your electronic medical record. You may view this report before your referring provider. If you have questions, please contact your health care provider. INDICATION: Short of breath. COMPARISON: 01 July 2022. IMPRESSION: Hazy increase from comparison in the airspace opacity in the parahilar and right upper lobe suggesting pneumonia. Somewhat low lung volumes. Interstitial prominence diffusely similar to before. Some increased hazy airspace opacity at the right base is well. Multifocal pneumonia not excluded. Pulmonary vessels are somewhat prominent. Query some degree of volume overload. Dictated by Florin Cui MD @ 07/10/2022 2:17:34 PM (Electronically Signed)
[2022-07-10 13:32] LABS: SARS Antigen* Negative (Negative)
--- NOTE | 2022-07-10 13:54 | ED_ITS ---
HPI - Weakness General Chief complaint: Weakness Stated complaint: Weakness/SOB Time Seen by Provider: 07/10/22 13:19 History of Present Illness HPI Narrative: 72-year-old man presenting via EMS to the emergency department with complaint of increasing weakness over last few days. Has had a cough over the last couple of months increased again over the last few days. Has had increasing swelling particularly of the lower extremity over the last few days. Increasing shortness of breath over the last few days. Has not measured a fever. Has not had diarrhea. He did have a few episodes of dry heaves this morning before coming to the emergency department. Does live with his girlfriend independently. It is hard for him to manage right now at home. Has rather extensive past medical including donor renal transplant, diabetes, below the knee amputation left leg, immunosuppression, chronic atrial fibrillation. Is not complaining of pain. EMS upon arrival noted oxygenation of 88% on room air. Mr. Guthrie is not typically on oxygen. Has been like this before with urinary tract infections. Says the blood sugars have been in the 150s. Has sacral and lower extremity wounds that are being attended to by the wound clinic. The end of his stump has he reports a nearly fully resolved wound. Has been getting dressing changes every few days. Later questioning reveals that he did have COVID few weeks ago. Was hospitalized. Related Data Home Medications Medication Instructions Recorded Confirmed escitalopram oxalate 20 mg tablet 20 mg PO DAILY 02/25/22 07/10/22 gabapentin 300 mg capsule 300 mg PO QAM 02/25/22 07/10/22 [id number] acid 0.4 1 tab PO QDAY 04/29/22 07/10/22 mg-lycopene 300 mcg-lutein 250 mcg tablet (CertaVite Senior) tacrolimus 0.5 mg capsule, 0.5 mg PO QDAY 04/29/22 07/10/22 immediate-release tacrolimus 1 mg capsule, 1 mg PO HS 04/29/22 07/10/22 immediate-release tamsulosin 0.4 mg capsule 0.4 mg PO DAILY 06/23/22 07/10/22 aspirin 81 mg tablet,delayed 81 mg PO QDAY 07/01/22 07/10/22 release gabapentin 300 mg capsule 600 mg PO QHS 07/10/22 07/10/22 mycophenolate mofetil 250 mg 750 mg PO BID 07/10/22 07/10/22 capsule pantoprazole 40 mg tablet,delayed 40 mg PO DAILY 07/10/22 07/10/22 release rosuvastatin 10 mg tablet 10 mg PO HS 07/10/22 07/10/22 Previous Rx's Medication Instructions Recorded Lactobacillus acidophilus 0.5 mg 1 mg PO TIDWM #30 tabs 07/16/22 (100 million cell) tablet albuterol sulfate 2.5 mg/3 mL 2.5 mg (3 mL) NEB Q4H PRN #90 mL 07/16/22 (0.083 %) solution for nebulization amoxicillin 875 mg-potassium 1 tab PO BIDWM 4 days #8 tabs 07/16/22 clavulanate 125 mg tablet apixaban 5 mg tablet (Eliquis) 2.5 mg PO BID #60 tabs 07/16/22 carvedilol 25 mg tablet 25 mg PO BID #30 tabs 07/16/22 insulin aspart U-100 100 unit/mL 10 unit (0.1 mL) subcut TIDWM #15 07/16/22 (3 mL) subcutaneous pen (Novolog mL Flexpen U-100 Insulin aspart) insulin detemir U-100 100 unit/mL 20 unit (0.2 mL) subcut HS #15 mL 07/16/22 (3 mL) subcutaneous pen (Levemir FlexTouch U-100 Insulin) levothyroxine 25 mcg tablet 25 mcg PO DAILY@0600 #30 tabs 07/16/22 torsemide 10 mg tablet 10 mg PO DAILY 7 days #7 tabs 07/16/22 Allergies Allergy/AdvReac Type Severity Reaction Status Date / Time No Known Drug Allergies Allergy Verified 07/10/22 12:59 Review of Systems Status of ROS: Reports: 10 or more systems reviewed and unremarkable except as noted in History and below [facility] Medical History (Updated 07/18/22 @ 12:38 by Momo Giles MD) Anemia associated with stage 5 chronic renal failure (01/27/10) Below-knee amputation of left lower extremity Charcot's joint of left foot Chronic kidney disease COVID-19 Erectile dysfunction (07/30/06) General patient noncompliance Generalized anxiety disorder History of adenomatous polyp of colon (01/01/14) Hyperlipidemia Hyperparathyroidism due to renal insufficiency (01/27/10) Hypertension Insomnia Insulin dependent diabetes mellitus Major depression Pancreatic lesion Peripheral neuropathy Permanent atrial fibrillation (01/11/22) Proliferative diabetic retinopathy Superficial nodular basal cell carcinoma (BCC) Thyroid nodule Ulcer of left lower extremity Vitamin D deficiency (11/20/11) Surgical History (Updated 07/15/22 @ 08:25 by Jasmina Chinchilla MD) Amputation of left lower extremity (12/17/05) AV fistula History of cataract extraction History of panretinal photocoagulation History of vitrectomy Hx of BKA Renal transplant recipient Family History (Updated 07/10/22 @ 16:38 by Alexandria Cid MD) Father Coronary artery disease Social History Narrative: Lives with Tete, significant other, 8 years. No children. 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 Grew up in [place], [place]. Wears glasses. No dentures. No hearing aids. One brother in [place]. No drugs, no alcohol, distant smoking history. Parents . Highest level of school completed/degree received: Bachelor's degree Smoking Status: Never smoker How often do you have a drink containing alcohol: never How often do you have six or more drinks on one occasion: Never AUDIT-C Alcohol total score: 0 Non-prescribed substance use: denies use Caffeine: No Little interest or pleasure in doing things: several days Feeling down, depressed, or hopeless: not at all service: No Exam Narrative: Exam Narrative: Pleasant. Labored but not terribly tachypneic in his breathing. Appears generally quite fatigued. He is on 2.5 L of nasal cannula satting low 90s. Smells a little of urine. Oropharynx is quite dry. Not erythematous. Neck is supple Lungs are good air movement with diffuse crepitus. No wheeze. Cardiovascular with regular rate and rhythm is distant Abdomen is obese soft and nontender. There is bruising consistent with insulin injections across the low abdomen. Extremities with weak and tremulous movement. The left leg has insert padding in place for [id number] amputation. Removing this padding. I do not appreciate much in way of edema. There is bandage well adhered at the distal aspect of the stump that were there does not appear to be any related induration or redness. I do not remove the bandage. The right leg is generally mild to moderately edematous. Pitting lower extremity. I do not see cellulitic change. A couple bandages in place on the carmona with some scrapes as well. Again without induration or erythema of the skin. Nails are deformed. He is weak to sit transition. I have not examined sacral area. Wearing attends. Later nursing exam with attends change for bowel movement, they note bilateral upper medial buttock ulcerations. Const: Vital Signs, click to edit/add: Vital Signs - 24 hr 07/10/22 12:59 07/10/22 13:16 07/10/22 13:20 Temperature 98.2 F Pulse Rate Pulse Rate [Pulse Oximeter] 68 Respiratory Rate 22 Blood Pressure Blood Pressure [Le ft Upper Arm] 139/73 Pulse Oximetry 87 L 92 95 Oxygen Delivery Me thod Room Air Nasal Cannula Oxygen Flow Rate 2.5 07/10/22 13:19 07/10/22 13:30 07/10/22 13:54 Temperature Pulse Rate 67 71 75 Pulse Rate [Pulse Oximeter] Respiratory Rate Blood Pressure 151/94 H Blood Pressure [Le ft Upper Arm] Pulse Oximetry 92 94 95 Oxygen Delivery Me thod Nasal Cannula Nasal Cannula Nasal Cannula Oxygen Flow Rate 2.5 2.5 2.5 07/10/22 14:00 07/10/22 14:02 07/10/22 14:03 Temperature Pulse Rate 72 70 68 Pulse Rate [Pulse Oximeter] Respiratory Rate Blood Pressure 145/96 H Blood Pressure [Le ft Upper Arm] Pulse Oximetry 94 95 95 Oxygen Delivery Me thod Nasal Cannula Nasal Cannula Nasal Cannula Oxygen Flow Rate 2.5 2.5 2.5 07/10/22 14:30 07/10/22 14:32 07/10/22 15:06 Temperature Pulse Rate 71 70 74 Pulse Rate [Pulse Oximeter] Respiratory Rate Blood Pressure 143/86 H Blood Pressure [Le ft Upper Arm] Pulse Oximetry 94 94 88 Oxygen Delivery Me thod Nasal Cannula Nasal Cannula Nasal Cannula Oxygen Flow Rate 2.5 2.5 2.5 07/10/22 15:07 Temperature Pulse Rate 69 Pulse Rate [Pulse Oximeter] Respiratory Rate Blood Pressure 128/81 Blood Pressure [Le ft Upper Arm] Pulse Oximetry 91 Oxygen Delivery Me thod Nasal Cannula Oxygen Flow Rate 2.5 Course Course Hospital Course: Latrell is a 72-year-old male with multiple medical comorbidities, admitted to the hospital on 07/10/22 for weakness and edema. His weakness was felt to be multifactorial, given comorbidities, acute kidney injury, chronic immunosuppressed status 2/2 renal transplant, DM2, recent COVID infection, untreated CHANELL. Notable findings above and include acute kidney injury (creatinine peaked at 2.8, back to baseline of 2.1 upon discharge). Creatinine noted to improve with diuretic use. Patient's edema was fairly problematic, as he was unable to use his left lower extremity prosthesis 2/2 edema (h/o BKA); edema treated with diuresis and his am lodipine was discontinued. Coreg dose was subsequently increased for blood pressure control. He was seen by PT and OT for his weakness and deconditioning, who recommend SNF placement upon discharge. RT was also consulted given patient's untreated CHANELL (intolerant of CPAP) and dependence on supplemental oxygen. He was noted to have bilateral infiltrates on imaging, these were not felt to be bacterial given his afebrile status, normal white count, normal procalcitonin, and recent COVID infection. Urine culture positive for Proteus during stay, so patient was treated with Augmentin. Patient's comorbidities remained stable and he was medically cleared for discharge to SNF in [place] on 07/16/2022. Vital Signs Vital signs: Initial Vital Signs Temperature 98.2 F 07/10/22 12:59 Temperature Source Oral 07/10/22 12:59 Pulse Rate 68 07/10/22 12:59 Respiratory Rate 22 07/10/22 12:59 Blood Pressure 139/73 07/10/22 12:59 Blood Pressure Mean 95 07/10/22 12:59 Blood Pressure Position Supine 07/10/22 12:59 Pulse Oximetry 87 L 07/10/22 12:59 Oxygen Delivery Method 07/10/22 12:59 Vital Signs Temperature 98.2 F 07/10/22 12:59 Pulse Rate 68 07/10/22 12:59 Respiratory Rate 22 07/10/22 12:59 Blood Pressure 139/73 07/10/22 12:59 Pulse Oximetry 87 L 07/10/22 12:59 Oxygen Delivery Method 07/10/22 12:59 Temperature 98.4 F 07/16/22 14:22 Pulse Rate 76 07/16/22 14:22 Respiratory Rate 22 07/16/22 14:22 Blood Pressure 154/75 H 07/16/22 14:22 Pulse Oximetry 93 07/16/22 07:45 Oxygen Delivery Method 07/16/22 07:45 Oxygen Flow Rate 2 07/16/22 07:45 MDM - Weakness MDM Narrative Medical decision making narrative: Labs and x-rays are pending. Given degree of weakness I would anticipate Mr. Her male needing to be admitted for this and oxygen saturations alone. Would have concerns regarding pneumonia or perhaps influenza. Urine will be checked as well. cxr by my read with ?bilateral infiltrates and with what I would consider possible interstitial congestion covid pcr not unexpectedly pos but Ag neg. urinalysis pending Medical Records Attestation: I reviewed the patient's medical records. Lab Data Attestation: I reviewed the patient's lab results. Labs: Lab Results 07/10/22 07/10/22 07/10/22 Range/Units 13:00 13:50 13:50 WBC 4.56 (4.50-11.00) K/uL RBC 4.23 L (4.30-5.90) m/uL Hgb 11.4 L (13.5-17.5) gm/dL Hct 36.4 L (37.0-53.0) % MCV 86 (80-100) fL MCH 27 (26-34) pg MCHC 31 L (32-36) gm/dL RDW Coeff of Benjamin 15.1 (11.5-15.5) % Plt Count 128 L (140-440) K/uL Neut % (Auto) 77.0 H (42.0-72.0) % Lymph % (Auto) 11.2 L (20-44) % [place] % (Auto) 9.6 (0.0-11.0) % Eos % (Auto) 1.8 (0.0-7.0) % Baso % (Auto) 0.2 (0.0-3.0) % Neut # (Auto) 3.50 (1.7-7.0) K/uL Lymph # (Auto) 0.50 L (0.90-2.90) K/uL [place] # (Auto) 0.40 (0.00-0.90) K/UL Eos # (Auto) 0.08 (0.00-0.50) K/uL Baso # (Auto) 0.01 (0.00-0.30) K/uL Abs Immat Gran (auto) 0.01 (0.00-0.30) K/uL Imm/Tot Granulo (auto) 0.2 % INR (0.91-1.10) VBG pH (7.32-7.43) VBG pCO2 (40-50) mmHG VBG pO2 (25-47) mmHG VBG HCO3 (21-28) mmol/L Sodium 137 (135-149) mmol/L Potassium 4.8 (3.6-5.1) mmol/L Chloride 112 (96-114) mmol/L Carbon Dioxide 22 (20-32) mmol/L BUN 22 (7-30) mg/dL Creatinine 2.2 H (0.5-1.5) mg/dL Estimated Creat Clear 33.31 Estimated GFR 31 ml/min Glucose 314 H (60-115) mg/dL Hemoglobin A1c (0-5.6) % Venous Lactic Acid (Serial Order) Calcium 9.0 (8.4-10.6) mg/dL Ionized Calcium Floyd (1.11-1.30) mmol/L Magnesium (1.5-2.6) mg/dL Total Bilirubin (0.1-1.5) mg/dL Direct Bilirubin (0.0-0.5) mg/dL AST (12-35) U/L ALT (4-50) U/L Alkaline Phosphatase (40-150) U/L Troponin I (0.01-0.04) ng/mL C-Reactive Protein 5.5 H (0.5-1.0) mg/dL NT-Pro-B Natriuret Pep (0-125) PG/mL Total Protein (6.0-8.3) g/dL Albumin (3.3-5.0) g/dL Procalcitonin (<0.50) ng/mL TSH (0.270-4.20) uIU/mL PTH Intact (15-65) pg/mL Urine Color (Yellow) Urine Appearance (Clear) Urine pH (5.0-8.5) Ur Specific Wrights (1.000-1.030) Urine Protein (Negative) Urine Glucose (UA) (Negative) Urine Ketones (Negative) Urine Blood (Negative) Urine Nitrite (Negative) Urine Bilirubin (Negative) Urine Urobilinogen (0.2-1.0) Ur Leukocyte Esterase (Negative) Urine RBC (0-2) Urine WBC (0-5) Ur Squamous Epith Cells (None-Few) Urine Bacteria (None) SARS-CoV-2 (PCR) POSITIVE SARS-CoV-2 A (Negative) Influenza Type A (PCR) Negative PCR FLU A (Negative) Influenza Type B (PCR) Negative PCR FLU B (Negative) RSV (PCR) Negative PCR RSV (Negative) SARS-CoV-2 Ag (Rapid) Negative (Negative) 07/10/22 07/10/22 07/10/22 Range/Units 13:50 13:50 13:50 WBC (4.50-11.00) K/uL RBC (4.30-5.90) m/uL Hgb (13.5-17.5) gm/dL Hct (37.0-53.0) % MCV (80-100) fL MCH (26-34) pg MCHC (32-36) gm/dL RDW Coeff of Benjamin (11.5-15.5) % Plt Count (140-440) K/uL Neut % (Auto) (42.0-72.0) % Lymph % (Auto) (20-44) % [place] % (Auto) (0.0-11.0) % Eos % (Auto) (0.0-7.0) % Baso % (Auto) (0.0-3.0) % Neut # (Auto) (1.7-7.0) K/uL Lymph # (Auto) (0.90-2.90) K/uL [place] # (Auto) (0.00-0.90) K/UL Eos # (Auto) (0.00-0.50) K/uL Baso # (Auto) (0.00-0.30) K/uL Abs Immat Gran (auto) (0.00-0.30) K/uL Imm/Tot Granulo (auto) % INR (0.91-1.10) VBG pH 7.370 (7.32-7.43) VBG pCO2 40 (40-50) mmHG VBG pO2 47.9 H (25-47) mmHG VBG HCO3 23 (21-28) mmol/L Sodium (135-149) mmol/L Potassium (3.6-5.1) mmol/L Chloride (96-114) mmol/L Carbon Dioxide (20-32) mmol/L BUN (7-30) mg/dL Creatinine (0.5-1.5) mg/dL Estimated Creat Clear Estimated GFR ml/min Glucose (60-115) mg/dL Hemoglobin A1c (0-5.6) % Venous Lactic Acid (Serial Order) Calcium (8.4-10.6) mg/dL Ionized Calcium Floyd 1.11 (1.11-1.30) mmol/L Magnesium 1.8 (1.5-2.6) mg/dL Total Bilirubin 1.4 (0.1-1.5) mg/dL Direct Bilirubin 0.2 (0.0-0.5) mg/dL AST 13 (12-35) U/L ALT 12 (4-50) U/L Alkaline Phosphatase 114 (40-150) U/L Troponin I < 0.01 L (0.01-0.04) ng/mL C-Reactive Protein (0.5-1.0) mg/dL NT-Pro-B Natriuret Pep 7710 H (0-125) PG/mL Total Protein 5.8 L (6.0-8.3) g/dL Albumin 2.9 L (3.3-5.0) g/dL Procalcitonin 0.12 (<0.50) ng/mL TSH (0.270-4.20) uIU/mL PTH Intact 213 H (15-65) pg/mL Urine Color (Yellow) Urine Appearance (Clear) Urine pH (5.0-8.5) Ur Specific Wrights (1.000-1.030) Urine Protein (Negative) Urine Glucose (UA) (Negative) Urine Ketones (Negative) Urine Blood (Negative) Urine Nitrite (Negative) Urine Bilirubin (Negative) Urine Urobilinogen (0.2-1.0) Ur Leukocyte Esterase (Negative) Urine RBC (0-2) Urine WBC (0-5) Ur Squamous Epith Cells (None-Few) Urine Bacteria (None) SARS-CoV-2 (PCR) (Negative) Influenza Type A (PCR) (Negative) Influenza Type B (PCR) (Negative) RSV (PCR) (Negative) SARS-CoV-2 Ag (Rapid) (Negative) 07/10/22 07/10/22 07/10/22 Range/Units 13:50 13:50 13:50 WBC (4.50-11.00) K/uL RBC (4.30-5.90) m/uL Hgb (13.5-17.5) gm/dL Hct (37.0-53.0) % MCV (80-100) fL MCH (26-34) pg MCHC (32-36) gm/dL RDW Coeff of Benjamin (11.5-15.5) % Plt Count (140-440) K/uL Neut % (Auto) (42.0-72.0) % Lymph % (Auto) (20-44) % [place] % (Auto) (0.0-11.0) % Eos % (Auto) (0.0-7.0) % Baso % (Auto) (0.0-3.0) % Neut # (Auto) (1.7-7.0) K/uL Lymph # (Auto) (0.90-2.90) K/uL [place] # (Auto) (0.00-0.90) K/UL Eos # (Auto) (0.00-0.50) K/uL Baso # (Auto) (0.00-0.30) K/uL Abs Immat Gran (auto) (0.00-0.30) K/uL Imm/Tot Granulo (auto) % INR 1.18 H (0.91-1.10) VBG pH (7.32-7.43) VBG pCO2 (40-50) mmHG VBG pO2 (25-47) mmHG VBG HCO3 (21-28) mmol/L Sodium (135-149) mmol/L Potassium (3.6-5.1) mmol/L Chloride (96-114) mmol/L Carbon Dioxide (20-32) mmol/L BUN (7-30) mg/dL Creatinine (0.5-1.5) mg/dL Estimated Creat Clear Estimated GFR ml/min Glucose (60-115) mg/dL Hemoglobin A1c 8.53 H (0-5.6) % Venous Lactic Acid (Serial Order) Calcium (8.4-10.6) mg/dL Ionized Calcium Floyd (1.11-1.30) mmol/L Magnesium (1.5-2.6) mg/dL Total Bilirubin (0.1-1.5) mg/dL Direct Bilirubin (0.0-0.5) mg/dL AST (12-35) U/L ALT (4-50) U/L Alkaline Phosphatase (40-150) U/L Troponin I (0.01-0.04) ng/mL C-Reactive Protein (0.5-1.0) mg/dL NT-Pro-B Natriuret Pep (0-125) PG/mL Total Protein (6.0-8.3) g/dL Albumin (3.3-5.0) g/dL Procalcitonin (<0.50) ng/mL TSH 9.480 H (0.270-4.20) uIU/mL PTH Intact (15-65) pg/mL Urine Color (Yellow) Urine Appearance (Clear) Urine pH (5.0-8.5) Ur Specific Wrights (1.000-1.030) Urine Protein (Negative) Urine Glucose (UA) (Negative) Urine Ketones (Negative) Urine Blood (Negative) Urine Nitrite (Negative) Urine Bilirubin (Negative) Urine Urobilinogen (0.2-1.0) Ur Leukocyte Esterase (Negative) Urine RBC (0-2) Urine WBC (0-5) Ur Squamous Epith Cells (None-Few) Urine Bacteria (None) SARS-CoV-2 (PCR) (Negative) Influenza Type A (PCR) (Negative) Influenza Type B (PCR) (Negative) RSV (PCR) (Negative) SARS-CoV-2 Ag (Rapid) (Negative) 07/10/22 Range/Units 16:15 WBC (4.50-11.00) K/uL RBC (4.30-5.90) m/uL Hgb (13.5-17.5) gm/dL Hct (37.0-53.0) % MCV (80-100) fL MCH (26-34) pg MCHC (32-36) gm/dL RDW Coeff of Benjamin (11.5-15.5) % Plt Count (140-440) K/uL Neut % (Auto) (42.0-72.0) % Lymph % (Auto) (20-44) % [place] % (Auto) (0.0-11.0) % Eos % (Auto) (0.0-7.0) % Baso % (Auto) (0.0-3.0) % Neut # (Auto) (1.7-7.0) K/uL Lymph # (Auto) (0.90-2.90) K/uL [place] # (Auto) (0.00-0.90) K/UL Eos # (Auto) (0.00-0.50) K/uL Baso # (Auto) (0.00-0.30) K/uL Abs Immat Gran (auto) (0.00-0.30) K/uL Imm/Tot Granulo (auto) % INR (0.91-1.10) VBG pH (7.32-7.43) VBG pCO2 (40-50) mmHG VBG pO2 (25-47) mmHG VBG HCO3 (21-28) mmol/L Sodium (135-149) mmol/L Potassium (3.6-5.1) mmol/L Chloride (96-114) mmol/L Carbon Dioxide (20-32) mmol/L BUN (7-30) mg/dL Creatinine (0.5-1.5) mg/dL Estimated Creat Clear Estimated GFR ml/min Glucose (60-115) mg/dL Hemoglobin A1c (0-5.6) % Venous Lactic Acid (Serial Order) Calcium (8.4-10.6) mg/dL Ionized Calcium Floyd (1.11-1.30) mmol/L Magnesium (1.5-2.6) mg/dL Total Bilirubin (0.1-1.5) mg/dL Direct Bilirubin (0.0-0.5) mg/dL AST (12-35) U/L ALT (4-50) U/L Alkaline Phosphatase (40-150) U/L Troponin I (0.01-0.04) ng/mL C-Reactive Protein (0.5-1.0) mg/dL NT-Pro-B Natriuret Pep (0-125) PG/mL Total Protein (6.0-8.3) g/dL Albumin (3.3-5.0) g/dL Procalcitonin (<0.50) ng/mL TSH (0.270-4.20) uIU/mL PTH Intact (15-65) pg/mL Urine Color Yellow (Yellow) Urine Appearance Cloudy A (Clear) Urine pH 7.0 (5.0-8.5) Ur Specific Wrights 1.020 (1.000-1.030) Urine Protein 3+ A (Negative) Urine Glucose (UA) 2+ A (Negative) Urine Ketones Trace A (Negative) Urine Blood 2+ A (Negative) Urine Nitrite Negative (Negative) Urine Bilirubin Negative (Negative) Urine Urobilinogen 1.0 (0.2-1.0) Ur Leukocyte Esterase 3+ A (Negative) Urine RBC 10-25 A (0-2) Urine WBC 2-5 (0-5) Ur Squamous Epith Cells None (None-Few) Urine Bacteria Few A (None) SARS-CoV-2 (PCR) (Negative) Influenza Type A (PCR) (Negative) Influenza Type B (PCR) (Negative) RSV (PCR) (Negative) SARS-CoV-2 Ag (Rapid) (Negative) ECG Data Attestation: I personally reviewed and interpreted this ECG as follows: (Atrial fibrillation rate of 71. No ischemic changes. Generally low voltage. ) Discharge Plan Discharge Clinical Impression: Acute kidney injury, Weakness, Pneumonia, Fluid overload Discharge Location: [facility] Condition: Improved Activity Level: Up with assist Discharge Diet: Diabetic
--- OUTSIDE RECORDS SUMMARY | 2022-07-10 13:57 | XMS_ITS | Clinical Summary ---
:1950 Author Organization [employer] [place] [address] Care Team Providers Name Role Phone Momo Forbes MD Primary Care Provider [phone] Allergies No known active allergies Medications [...] Okay to use Medela Wound Vac at [facility] Right foot wound debridement with application of integra bilayer matrix and wound vac, 10.0 cm x 5.0 cm x 0.6 cm. M- W-F dressing changes gabapentin Take 1 capsule 21 capsule 0 09/26/19 Act jo (NEURONTIN) 300 mg by mouth 3 times 21 capsuleIndications: daily. neuropathic pain Indications: neuropathic pain durable medical Custom TULALIP boot 1 Each 0 11/27/19 Active equipment [...] [place] Hypertension; Arnoldo Gregory [facility] Discharge Summary - Arnoldo Gregory [facility] - 06/20/2022 8:17 AM CDT Images from the original not e were not included. HOSPITAL DISCHARGE SUMMARY Patient Name: Diego Guthrie Date of : 1950 Age: 72 y.o. [id number] Primary Physician: Momo Forbes MD Admission Date: 06/15/2022 Discharge Date: 06/20/2022 He will be discharged from [facility] to home. 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 albuterol HFA 90 mcg/actu ation inhaler [...] confined to his/her home and needs intermittent half-way care, physical therapy and/or speech therapy or continues to need occupational therapy. A plan of care has been established and will be reviewed periodically by a physician or allowed practitioner. Services will be furnished while the patient is under the care of a physician or allowed practitioner. The beni ent had a [id number] encou nter with a physician or an [...] [facility] [place] [facility] June 22 at 10:50 with Alexandria Banuelos. [facility] [employer] Whe[facility] [place] You have been referred to [facility] with [facility] ( ) . Please [...] scarlett w up appointment(s) Momo Forbes MD [facility] follow up May resume ARB med [...] medical emergency. Why were you at the [facility]? You were in the hospital fo [...] Cielo Weaver Cough, u nspecified type; L, HEATING FIXTURE TENDER Chronic atrial fibrillation (HC); Giovanni Lara, Pneumon ia of right lower lobe due to infectious organism; History of dasha l transplant; Post-nasal drai nagsantino Discharge Summary - Víctor Schuler DO - 06/05/2022 10:47 AM CDT Images from the original not e were not included. HOSPITALIST DISCHARGE SUMMAR Y ? ? [facility] Admission Date: 06/01/2022 Discharge Date: 06/05/2022 Discharge Plan: Diego agee was discharged to home. Principal Diagnosis Pneumonia due to COVID-19 vi [facility] Hospital Problem List Principal Problem: [...] post renal transplant in 2013 at the [facility] on CellCept and Prograf who presents with [...] transplant team because he is inpatient per [place]'s policy given the EUA stipulations. 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 cefuroxime axetil 500 mg tablet ?? dexAMETHasone 6 mg tablet Pertinent Findings / Procedu res First weight: (!) 148.5 kg ( 327 lb 6.4 oz) (Weighed with prostetic leg on - prostetic leg adds 20 lbs) (06/01/22 9649) Last weight: (!) 148.4 kg (327 lb 3.2 oz) (06/02/22 9511) EXAM: Diego is alert, no acu te [...] 4.3 4.7 CHLORIDE -- 110 112 H [id number] -- BUN -- 42 H 36 H [...] Component Value U nits Date/Time URINE CULTURE [[id number]] (Abnormal) (Susceptibility) Collected: 06/02/2244 Lab Status: Final [...] or P.mirablis. Linear View INFLUENZA A/B/H1N1 PCR [[id number]] (Normal) Collected: 06/02/2238 Lab Status: Final result Sp ecimen: Other from Nasopharyngeal Updated: 06/02/22122 INFLUENZA A PCR NOT Detecte d INFLUENZA B PCR NOT Detecte d COVID 19 [[id number]] (Abno rmal) Collected: 06/02/2238 Lab Status: Final [...] terminated or revoked sooner. BLOOD CULTURE X2 [[id number]] (Normal) Collected: 06/02/2224 Lab Status: Preliminary res ult Specimen: Blood Updated: 06/02/22506 CULTURE No growth to date. BLOOD CULTURE X2 [[id number]] (Normal) Collected: 06/02/2221 Lab Status: Preliminary [...] Duration 110 QT 362 QTc 415 R Stanton 26 Consultants None Curbside with his transplant [...] daycare: If you or others in your [facility] are working, please reach out to your Employer for further direction on work policies. For children who attend scho ol or day care, refer your child's school or day care policy for when its safe to return, You can also refer to the [facility] guidelines. Go to: [email or web address] [email or web address]/[email or web address]/[email or web address] Call 911 if you have [...] Centers for Disease Control (CDC) - https://www.cdc.gov/coronavirus/2019-nCoV/index.html [facility] ([facility]) - https://www.[facility]/diseases/coronavirus/index.html For children who attend scho ol or day care, refer to the following [facility] guidelines: Go to: https://www.[facility]/diseases/coronavirus/schools/exguide.pdf [facility]'s website www.[email or web address].[facility] er and Positioning and Breathing Exercises Positioning: Changing [...] directed. Carry a phone (cordless or c Postcronular) with you at all times in case [...] medical emergency. Why were you at the [facility]? The reason(s) you were in [facility] is/are COVID pneumonia and a bladder infection. [...] and examined today. Víctor Schuler DO Hospitalist, [facility] ? ? [phone] Cc: Sondra Renal Transplant Team 06/01/2022 Travel from Last 3 Months Immunizations Name Administration [...] CHF, ASCVD Mother (Age 70) Ervin Thurston Social History Tobacco Use Types Packs/Day Years [...] Christoph 140/90 Medical Devices Implanted Type Area Steffen [employer] Supervisor Device Shelf Model / Identifier Expiration Date Ser ial / Lot Drsg Wound 4x5in Matrix Bilayer Right: 08/21/2020 [id number] / Implanted: Qty: 1 on 09/23/2020 by Araceli Fowler DPM at [facility] / [id number] Description: DRSG WOUND 4X5IN MATRIX JYOTI BHAVIK [...] - 100 06/20/2022 [place] mg/dL 11:14 AM T HOSPITAL Specimen Anatomical Collection Method Collection Time Receive d Time (Source) Location / / Volume Laterality Blood BLOOD SPECIMEN / 06/20/2022 11:10 022 Unknown AM CDT 11:14 AM CDT Arnoldo Gregory [facility] CHEMISTRY Performing Organization Address City/State/ZIP Code Phon e Number [facility] [address] [address] (ABNORMAL) CBC WITH AUTO DIFFERENTIAL (06/20/2022 5:44 AM CDT)Only the most recent of11 resultswithin the time period is included. [facility] gist Method Time Signature WHITE BLOOD 6.4 4.5 - 11.0 06/20/2022 [place] COUNT thou/cu mm 6:27 AM CDT HOSPITAL RED BLOOD COUNT 4.64 4.30 - 06/20/2022 [place] 5.90 6:27 AM T HOSPITAL mil/cu mm HEMOGLOBIN 12.5 (L) 13.5 - 06/20/2022 [place] 17.5 g/dL 6:27 AM T HOSPITAL HEMATOCRIT 38.8 37.0 - 06/20/2022 [place] 53.0 % 6:27 AM T HOSPITAL MCV 84 80 - 100 06/20/2022 [place] fL 6:27 AM T HOSPITAL MCH 26.9 26.0 - 06/20/2022 [place] [...] AM CDT HOSPITAL ABSOLUTE 0.0 <0.3 06/20/2022 [place] BASOPHILS thou/cu mm 6:27 AM CDT HOSPITAL Specimen Anatomical Collection Method / Collection Time Recei laura Time (Source) Location / Volume Laterality Blood BLOOD SPECIMEN / Venipuncture / 06/20/2022 5:44 2021 6:11 Unknown Unknown AM CDT AM CDT Mistid Drea Gregory [facility] HEMATOLOGY Performing Organization Address City/State/ZIP Code Phon e Number [place] [facility] [address] [address] (ABNORMAL) PROTIME-INR (06/20/2022 5:44 AM CDT)Only the most recent of5 results within the time period is included. athologist Signature INR 1.8 (H) <1.3 06/20/2022 [place] 6:22 AM CDT HOSPITAL PROTIME 20.1 (H) 12.0 - 13.8 06/20/2022 [place] sec 6:22 AM CDT HOSPITAL Specimen Anatomical Collection Method / Collection Time Recei laura Time (Source) Location / Volume Laterality Blood BLOOD SPECIMEN / Venipuncture / 06/20/2022 5:44 2021 6:12 Unknown Unknown AM CDT AM CDT [facility] - 06/20/2022 6:22 AM C DT [...] seconds if the patient is on UFH. Mistitimmy Drea Colt [facility] HEMATOLOGY Performing Organization Address City/State/ZIP Code Phon e Number [facility] [address] [address] (ABNORMAL) BASIC METABOLIC PANEL (06/20/2022 5:44 AM CDT)Only the most recent of 6 resultswithin the time period is included. Analysis Performed At Patho logist Time Signature SODIUM 138 135 - 145 [facility] mmol/L 6:35 AM CDT HOSPITAL POTASSIUM 4.3 3.5 - 5.0 06/20/2022 [place] mmol/L 6:35 AM CDT HOSPITAL CHLORIDE 113 (H) 98 - 110 06/20/2022 [place] mmol/L 6:35 AM CDT HOSPITAL CO2,TOTAL 21 21 - 31 06/20/2022 [place] mmol/L 6:35 AM T HOSPITAL ANION GAP 4 (L) 5 - 18 06/20/2022 [place] 6:35 AM T HOSPITAL GLUCOSE 163 (H) 65 - 100 06/20/2022 [place] mg/dL 6:35 AM T HOSPITAL CALCIUM 8.9 8.5 - 10.5 06/20/2022 [place] mg/dL 6:35 AM T HOSPITAL BUN 51 (H) 8 - 25 06/20/2022 [place] mg/dL 6:35 AM T HOSPITAL CREATININE 2.01 (H) 0.72 - 06/20/2022 [place] 1.25 mg/dL 6:35 AM T HOSPITAL BUN/CREAT RATIO 25 (H) 10 - 20 06/20/2022 [place] 6:35 AM T HOSPITAL eGFR 35 (L) >90 06/20/2022 [place] mL/min/1.7 6:35 AM T HOSPITAL 3m2 Comment: [...] 2021 6:12 Unknown Unknown AM CDT AM T Arnoldo Gregory [facility] CHEMISTRY Performing Organization Address City/State/ZIP Code Phon e Number [facility] [address] [place] [phone] (ABNORMAL) RED CELL MORPHOLOGY (06/19/2022 5:52 AM CDT)Only the most recent of7 resultswithin the time period is included. [facility] Method Time Signature ELLIPTOCYTES Few 06/19/2022 [place] 7:57 AM T HOSPITAL RBC COMMENT Present (A) RBC morphology 06/19/2022 [place] appears 7:57 AM T HOSPITAL normal, RBC morphology within normal limits for newborns. Specimen Anatomical Collection Method / Collection Time Recei laura Time (Source) Location / Volume Laterality Blood BLOOD SPECIMEN / Venipuncture / 06/19/2022 5:52 2021 6:44 Unknown Unknown AM CDT AM CDT [facility] HEMATOLOGY Performing Organization Address [facility]/ZIP [facility] Phon e Number [address] [address] (ABNORMAL) PLATELET ESTIMATE (06/19/2022 5:52 AM CDT)Only the most recent of7 resultswithin the time period is included. [facility] Method Time Signature PLATELET Decreased (A) Adequate, No 06/19/2022 [place] ESTIMATE estimate 7:57 AM CDT HOSPITAL Specimen Anatomical Collection Method / Collection Time Recei laura Time (Source) Location / Volume Laterality Blood BLOOD SPECIMEN / Venipuncture / 06/19/2022 5:52 2021 6:44 Unknown Unknown AM CDT AM CDT [facility] HEMATOLOGY Performing Organization Address [facility] e [address] [address] PROCALCITONIN (06/19/2022 5:52 AM CDT)Only the most recent of2 resultswithin the time period is included. P athologist Signature PROCALCITONIN 0.05 <0.50 ng/ml 06/19/2022 [place] 9:45 AM CDT HOSPITAL Specimen Anatomical Collection Method / Collection Time Recei laura Time (Source) Location / Volume Laterality Blood BLOOD SPECIMEN / Venipuncture / 06/19/2022 5:52 2021 6:44 Unknown Unknown AM CDT AM CDT Narrative [facility] - 06/19/2022 9:45 AM C DT Procalcitonin [...] any concentrations <2.0 ng/mL are obtained. [facility] SEND OUTS Performing Organization Address City/State/ZIP Code Phon e Number [place] [id number] [phone] XR CHEST 1 VIEW PORTABLE (06/18/2022 9:15 AM CDT)Only the most recent of4 resultswithin the time period is included. Anatomical Region Laterality Modality HEART, THORAX, CHEST Digital Radiography Specimen (Source) Anatomical Location Collection Method / Collectio n Time Received Time / Laterality Volume Narrative This result has an attachment that is no t available. [facility] GENERAL IMAGING MAGNESIUM (06/17/2022 6:25 AM CDT)Only the most recent of4 resultswithin the time period is included. P athologist Signature MAGNESIUM 2.2 1.6 - 2.6 06/17/2022 [place] mg/dL 7:01 AM CDT HOSPITAL Specimen Anatomical Collection Method / Collection Time Recei laura Time (Source) Location / Volume Laterality Blood BLOOD SPECIMEN / Venipuncture / 06/17/2022 6:25 2021 6:29 Unknown Unknown AM CDT AM CDT Larry GARCÍABS CHEMISTRY Performing Organization Address City/State/ZIP Code Phon e Number [facility] [address] [address] (ABNORMAL) COMP METABOLIC PANEL (06/17/2022 6:25 AM CDT)Only the most recent of5 resultswithin the time period is included. [facility] Method Time Signature SODIUM 137 135 - 145 06/17/2022 [place] mmol/L 7:01 AM CDT HOSPITAL POTASSIUM 4.7 3.5 - 5.0 06/17/2022 [place] mmol/L 7:01 AM T HOSPITAL CHLORIDE 110 98 - 110 06/17/2022 [place] mmol/L 7:01 AM T HOSPITAL CO2,TOTAL 20 (L) 21 - 31 06/17/2022 [place] mmol/L 7:01 AM CDT HOSPITAL ANION GAP 7 5 - 18 06/17/2022 [place] 7:01 AM CDT HOSPITAL GLUCOSE 263 (H) 65 - 100 06/17/2022 [place] mg/dL 7:01 AM CDT HOSPITAL CALCIUM 9.0 8.5 - 10.5 06/17/2022 [place] mg/dL 7:01 AM T HOSPITAL BUN 53 (H) 8 - 25 06/17/2022 [place] mg/dL 7:01 AM CDT HOSPITAL CREATININE 2.01 (H) 0.72 - 06/17/2022 [place] 1.25 mg/dL 7:01 AM CDT HOSPITAL BUN/CREAT RATIO 26 (H) 10 - 20 06/17/2022 [place] 7:01 AM CDT HOSPITAL ALBUMIN 2.6 (L) 3.2 - 4.6 06/17/2022 [place] g/dL 7:01 AM CDT HOSPITAL PROTEIN,TOTAL 5.3 (L) 6.0 - 8.0 06/17/2022 [place] g/dL 7:01 AM CDT HOSPITAL GLOBULIN 2.7 2.0 - 3.7 06/17/2022 [place] g/dL 7:01 AM CDT HOSPITAL A/G RATIO 1.0 1.0 - 2.0 06/17/2022 [place] 7:01 AM T HOSPITAL BILIRUBIN,TOTAL 1.0 0.2 - 1.2 06/17/2022 [place] mg/dL 7:01 AM [facility]OSPITAL ALK PHOSPHATASE 81 50 - 136 06/17/2022 [place] IU/L 7:01 AM [facility] HOSPITAL ALT (SGPT) 17 8 - 45 06/17/2022 [place] IU/L 7:01 AM [facility]PITAL AST (SGOT) 10 2 - 40 06/17/2022 [place] IU/L 7:01 AM [facility] HOSPITAL eGFR 35 (L) >90 06/17/2022 [place] mL/min/1.7 7:01 AM [facility] 3m2 Comment: As of 2021, eGFR [...] Address City/State/ZIP Code Phon e Number [facility] [address] [address] ECHO COMPLETE WO CONTRAST (06/16/2022 4:09 PM [...] CDT Larry HERNANDEZ CHEMISTRY Performing Organization Address [facility] Phon e Number [facility] [address] [address] (ABNORMAL) Serum Glucose (06/15/2022 11:59 PM CDT)Only [...] Kyle Fontenot DO CHEMISTRY Performing Organization Address City/[facility] Phon e Number [facility] [address] [address] APTT (06/15/2022 11:59 PM CDT)Only the most recent of2 resultswithin the time period is included. P athologist Signature APTT 26 24 - 33 sec 06/16/2022 [place] 12:21 AM CDT HOSPITAL Specimen Anatomical Collection Method / Collection Time Recei laura Time (Source) Location / Volume Laterality Blood BLOOD SPECIMEN / Venipuncture / 06/15/2022 11:59 06/16 Unknown Unknown PM CDT 12:10 AM CDT [facility] - 06/16/2022 12:21 AM CDT Therapeutic Range: 70-95 seconds Larry HERNANDEZ HEMATOLOGY Performing Organization Address City/[facility] Phon e Number [facility] [address] [address] (ABNORMAL) OCCULT BLOOD IFOBT STOOL (06/15/2022 9:14 PM CDT) [facility] Method Time Signature STOOL BLOOD Positive (A) Negative [facility]/15[facility]2022 [facility] Specimen Anatomical Collection Method Collection Time Receive d Time (Source) Location / / Volume Laterality Stool STOOL SPECIMEN / Non-Blood / 06/15/2022 9:14 PM 06/15 9:19 Unknown Unknown CDT PM CDT Kyle Fontenot DO LABORATORY Performing Organization Address [facility]/[address] [address] (ABNORMAL) PLATELET COUNT (06/15/2022 4:58 PM CDT) athologist [facility] PLATELET COUNT 77 (L) 140 - 440 06/15/2022 [place] thou/cu mm 5:28 PM CDT HOSPITAL MPV 06/15/2022 [place] 5:28 PM CDT HOSPITAL Comment: Unable to be determined Specimen Anatomical Collection Method / Collection Time Recei laura Time (Source) Location / Volume Laterality Blood BLOOD SPECIMEN / Venipuncture / 06/15/2022 4:58 2021 5:03 Unknown Unknown PM CDT PM CDT Narrative [facility] - 06/15/2022 5:28 PM C DT Obtain before initiating IV heparin therapy if not done within previous 24 hours. Obtain before initiating IV heparin ther apy if not done within previous 24 hours. Obtain before initiating IV heparin ther apy if not done within previous 24 hours. Larry HERNANDEZ HEMATOLOGY Performing Organization Address [facility]/[address] [address] (ABNORMAL) HEMOGLOBIN (06/15/2022 4:58 PM CDT)Only the most recent of2 results within the time period is included. athologist Signature HEMOGLOBIN 12.5 (L) 13.5 - 06/15/2022 [place] 17.5 g/dL 5:08 PM CDT HOSPITAL MCV 83 80 - 100 06/15/2022 [place] fL 5:08 PM CDT HOSPITAL Specimen Anatomical Collection Method / Collection Time Recei laura Time (Source) Location / Volume Laterality Blood BLOOD SPECIMEN / Venipuncture / 06/15/2022 4:58 2021 5:03 Unknown Unknown PM CDT PM CDT [facility] - 06/15/2022 5:08 PM C DT Obtain before initiating IV heparin therapy if not done within previous 24 hours. Obtain before initiating IV heparin ther apy if not done within previous 24 hours. Obtain before initiating IV heparin ther apy if not done within previous 24 hours. Larry HERNANDEZ HEMATOLOGY Performing Organization Address [facility]/[address] [address] HEMATOCRIT (06/15/2022 4:58 PM CDT) P athologist Signature HEMATOCRIT 38.8 37.0 - 53.0 06/15/2022 [facility] 5[facility]10 PM CDT HOSPITAL Specimen Anatomical Collection Method / Collection Time Recei laura Time (Source) Location / Volume Laterality Blood BLOOD SPECIMEN / Venipuncture / 06/15/2022 4:58 2021 5:03 Unknown Unknown PM CDT PM CDT [facility] - 06/15/2022 5:10 PM C DT Obtain before initiating IV heparin therapy if not done within previous 24 hours. Obtain before initiating IV heparin ther apy if not done within previous 24 hours. Obtain before initiating IV heparin ther apy if not done within previous 24 hours. Larry HERNANDEZ HEMATOLOGY Performing Organization Address City/[facility]/[address] [address] (ABNORMAL) BUN (06/15/2022 4:58 PM CDT) P athologist Signature BUN 65 (H) 8 - 06/15/2022 [place] mg/dL 5:24 PM CDT HOSPITAL Specimen Anatomical Collection Method / Collection Time Recei laura Time (Source) Location / Volume Laterality Blood BLOOD SPECIMEN / Venipuncture / 06/15/2022 4:58 2021 5:03 Unknown Unknown PM CDT PM CDT Larry HERNNADEZ CHEMISTRY Performing Organization Address City/[facility]/ZIP Code [facility] e Number [address] [address] (ABNORMAL) CREATININE (06/15/2022 4:58 PM CDT)Only the most recent of2 results within the time period is included. P athologist Signature CREATININE 2.40 (H) 0.72 - 1.25 06/15/2022 [place] mg/dL 5:23 PM CDT HOSPITAL eGFR 28 (L) >90 06/15/2022 [place] mL/min/1.73 5:23 PM CDT HOSPITAL m2 Comment: [...] CDT Larry HERNANDEZ CHEMISTRY Performing Organization Address City/[facility]/ZIP Code [facility] e Number [address] [address] US VENOUS LOWER EXTREMITY BILATERAL (06/15/2022 4:05 [...] of3 resultswithin the time period is included. [facility] Method Time Signature D-DIMER,QUANT 1.65 See Comment 06/15/2022 [place] ITATIVE / FEU 3:25 PM CDT HOSPITAL mcg/mL D-DIMER Abnormal (A) 06/15/2022 [facility] 3:25 PM CDT HOSPITAL Specimen Anatomical Collection Method / Collection Time Recei laura Time (Source) Location / Volume Laterality Blood BLOOD SPECIMEN / Venipuncture / 06/15/2022 3:01 2021 3:09 Unknown Unknown PM CDT PM CDT Narrative [facility] - 06/15/2022 3:25 PM C DT The [...] range Larry HERNANDEZ HEMATOLOGY Performing Organization Address City/[facility]/ZIP Code Phon e Number [facility] [address] [address] (ABNORMAL) IRON PLUS IRON BINDING CAP (06/15/2022 5:46 AM CDT) Analysis Performed At Patho logist Time Signature IRON 23 (L) 31 - 144 06/17/2022 [facility] ug/dL 7:13 PM CDT LABORATORY-JACKY TRAL LABORATORY UIBC 154 06/17/2022 [facility] (UNSATURATED) 7:13 PM CDT LABORATORY-[facility]ACK[facility] TRAL LABORATORY IRON BINDING 177 (L) 245 - 400 06/17/2022 [facility] [employer] [facility] ug/dL 7:13 PM CDT LABORATORY-JACKY TRAL [...] Organization Address City/State/ZIP Code Phon e Number [facility] [address] [address] LABORATORY-CENTRAL 2000 LABORATORY (ABNORMAL) PTH,INTACT (06/15/2022 5:46 AM CDT) athologist Signature PTH,INTACT 489.0 (H) 14.5 - 06/16/2022 [facility] [employer] 87.1 pg/mL 3:01 PM CDT LABORATORY-JACKY TRAL LABORATORY CALCIUM 8.6 8.5 - 10.5 06/16/2022 [facility] mg/dL 3:01 PM CDT LABORATORY-JACKY TRAL LABORATORY Specimen Anatomical Collection Method / Collection Time Recei laura Time (Source) Location / Volume Laterality Blood BLOOD SPECIMEN / Venipuncture / 06/15/2022 5:46 2021 6:01 Unknown Unknown AM CDT AM CDT Kyle Fontenot DO SEND OUTS Performing Organization Address City/[facility]/ZIP [facility] Phon e Number [facility] [address] [place] [address] LABORATORY-CENTRAL 1999 LABORATORY (ABNORMAL) FERRITIN (06/15/2022 5:46 AM CDT)Only the most recent of2 results within the time period is included. athologist Signature FERRITIN 547.6 (H) 22.0 - 06/17/2022 [facility] 275.0 7:22 PM CDT LABORATORY-CENT ng/mL RAL LABORATORY Specimen Anatomical Collection Method / Collection Time Recei laura Time (Source) Location / Volume Laterality Blood BLOOD SPECIMEN / Venipuncture / 06/15/2022 5:46 2021 6:01 Unknown Unknown AM CDT AM CDT Kyle Fontenot DO CHEMISTRY Performing Organization Address City/[facility] Phon e Number [facility] [address] [place] [address] LABORATORY-CENTRAL 2000 LABORATORY WHITE BLOOD COUNT (06/15/2022 1:45 AM CDT) athologist Signature WHITE BLOOD 9.3 4.5 - 11.0 06/15/2022 [place] COUNT thou/cu mm 1:53 AM CDT HOSPITAL Specimen Anatomical Collection Method Collection Time Receive d Time (Source) Location / / Volume Laterality Blood BLOOD SPECIMEN / Butterfly / 06/15/2022 1:45 AM 06/15 1:49 Unknown Unknown CDT AM CDT Narrative [facility] - 06/15/2022 1:53 AM C DT WBC MUST ALSO BE ORDERED, [id number] Amidevante Fontenot DO HEMATOLOGY Performing Organization Address City/State/ZIP Code Phon e Number [facility] [address] [address] (ABNORMAL) DIFFERENTIAL (06/15/2022 1:45 AM CDT) Analysis Performed At Patho logist Time Signature % NEUT 94.6 % [facility] % LYMPH 2.0 % 06/[facility] % MONO 2.8 % 06/[facility] % EOS 0.5 % 06/15/2022 [place] 1:52 AM CDT HOSPITAL % BASO 0.1 % 06/15/2022 [place] 1:52 AM CDT HOSPITAL ABSOLUTE 8.8 (H) 1.7 - 7.0 06/15/2022 [place] NEUTROPHILS thou/cu mm 1:52 AM CDT HOSPITAL ABSOLUTE 0.2 (L) 0.9 - 2.9 06/15/2022 [place] LYMPHOCYTES thou/cu mm 1:52 AM CDT HOSPITAL ABSOLUTE 0.3 <0.9 06/15/2022 [place] MONOCYTES thou/cu mm 1:52 AM CDT HOSPITAL ABSOLUTE 0.1 <0.5 06/15/2022 [place] EOSINOPHILS thou/cu mm 1:52 AM CDT HOSPITAL ABSOLUTE 0.0 <0.3 06/15/2022 [place] BASOPHILS thou/cu mm 1:52 AM CDT HOSPITAL Specimen Anatomical Collection Method Collection Time Receive d Time (Source) Location / / Volume Laterality Blood BLOOD SPECIMEN / Butterfly / 06/15/2022 1:45 AM 06/15 1:49 Unknown Unknown CDT AM CDT Narrative [facility] - 06/15/2022 1:52 AM C DT WBC MUST ALSO BE ORDERED, [id number] Danadevante Fontenot DO HEMATOLOGY Performing Organization Address City/State/ZIP Code Phon e Number [facility] [address] [address] (ABNORMAL) Hemoglobin A1C (06/15/2022 1:45 AM CDT)Only the most recent of2 resultswithin the time period is included. Analysis Performed At [facility] logist Time Signature HEMOGLOBIN A1C 8.8 (H) <=6.4 % 06/16/2022 [facility] 8:31 PM CDT HOSPITAL (POCT) LABORATORY Specimen Anatomical Collection Method Collection Time Receive d Time (Source) Location / / Volume Laterality Blood BLOOD SPECIMEN / Add On / Unknown 06/15/2022 1:45 AM 1 Unknown CDT 10:06 AM CDT Narrative [facility] - 06/16/2022 8:31 PM CDT ? [...] Organization Address City/State/ZIP Code Phon e Number [facility] SENDOUT INTERNAL ZIP [place], [place] [id number] [address] [facility] SCAN-CARDIAC STRIP (06/15/2022 12:00 AM CDT) Narrative [...] of2 resultswithin the time period is included. Patholo gist Method Time Signature RBC 3-5 (A) 0-2, None 06/14/2022 [place] Seen /HPF 11:14 PM [facility] LABORATORY WBC 6-10 (A) 0-2, 3-5, 06/14/2022 [place] None Seen 11:14 PM [facility] /HPF LABORATORY BACTERIA Few None 06/14/2022 [place] Seen, 11:14 PM [facility] Rare, Few LABORATORY Bacteria/ HPF EPITHELIAL Few None 06/14/2022 [facility] CELLS Seen, Few 11:14 PM [facility] Epi/HPF LABORATORY Mucus Present 06/14/2022 [place] 11:14 PM [facility] LABORATORY WHITE CELL Present (A) (none) 06/14/2022 [facility] CLUMPS 11:14 PM [facility] Specimen Anatomical Collection Method Collection Time Receive d Time (Source) Location / / Volume Laterality Urine URINE SPECIMEN / Non-Blood / 06/14/2022 10:59 022 Unknown Unknown PM CDT 11:01 PM CDT Rosenda Blancas MD URINE Performing Organization Address City/[facility]/ZIP Code Phon e Number [facility] [address] [place] [address] (ABNORMAL) UA W/ SEDIMENT EXAM REFLEXED PER CRITERIA (06/14/2022 10:59 PM CDT) Only the most recent of2 resultswithin the time period is included. [facility] Method Time Signature COLOR Yellow Yellow Color 06/14/2022 [place] 11:07 PM [facility] CLARITY Clear Clear 06/14/2022 [facility] Clarity 11:07 PM [facility] SPECIFIC 1.025 1.010, 06/14/2022 [place] GRAVITY,URINE 1.015, 11:07 PM [facility] MEDICAL 1.020, 1.025 CENTER LABORATORY PH,URINE 6.0 6.0, 7.0, 06/14/2022 [place] 8.0, 5.5, 11:07 PM [facility] 6.5, 7.5, CENTER 8.5 LABORATORY UROBILINOGEN, Normal Normal EU/dl 06/14/2022 [facility] 11:07 [facility] PROTEIN, 100 (A) Negative 06/14/2022 [place] URINE mg/dL 11:07 PM [facility] GLUCOSE, >=1000 (A) Negative 06/14/2022 [place] URINE mg/dL 11:07 PM [facility] CENTER LABORATORY KETONES,URINE Negative Negative 06/14/2022 [place] mg/dL 11:07 PM [facility] CENTER LABORATORY BILIRUBIN,URI Negative Negative 06/14/2022 [place] NE 11:07 PM [facility] CENTER LABORATORY OCCULT Small (A) Negative 06/14/2022 [place] BLOOD,URINE 11:07 PM [facility] CENTER LABORATORY NITRITE Negative Negative 06/14/2022 [place] 11:07 PM [facility]ENTER LABORATORY LEUKOCYTE Negative Negative 06/14/2022 [facility] ESTERASE 11:07 PM [facility] Specimen Anatomical Collection Method Collection Time Receive d Time (Source) Location / / Volume Laterality Urine URINE SPECIMEN / Non-Blood / 06/14/2022 10:59 022 Unknown Unknown PM CDT 11:01 PM CDT Rosenda Blancas MD URINE Performing Organization Address City/[facility]/ZIP Code Phon e Number [facility] [address] [place] [address] LACTATE VENOUS (06/14/2022 8:41 PM CDT)Only the most recent of4 resultswithin the time period is included. athologist Signature LACTATE,VENOUS 1.7 0.5 - 2.0 06/14/2022 [place] mmol/L 8:59 PM [facility] Specimen Anatomical Collection Method / Collection Time Recei laura Time (Source) Location / Volume Laterality Blood BLOOD SPECIMEN / Venipuncture / 06/14/2022 8:41 2021 8:43 Unknown Unknown PM CDT PM CDT Rosenda Blancas MD CHEMISTRY Performing Organization Address City/[facility]/ZIP Code Phon e Number [facility] [address] [place] [address] CT CHEST WO (06/14/2022 7:52 PM CDT) Anatomical Region Laterality Modality CHEST, THORAX, HEART Computed Tomography Specimen (Source) Anatomical Collection Method Collection Time Re ceived Time Location / / Volume Laterality 06/14/2022 8:25 PM CDT Narrative 06/14/2022 8:25 PM CDT For Patients: ??As a result of the Cures Act, medical imaging exams and procedure report s are released immediately into your [facility] medical record. ??You may view this report [...] note that all CT scans at this [facility] use dose modulation, iterative reconstruction, and/or [...] If you have questions, please contact [facility] health care provider. Indication: Shortness of breath [...] note that all CT scans at this [facility] use dose modulation, iterative reconstruction, and/or [...] For Patients: ??As a result of the 21st Century Cures Act, medical imaging exams and procedure report s are released immediately into your [facility] medical record. ??You may view this report [...] note that all CT scans at this [facility] use dose modulation, iterative reconstruction, and/or [...] you have questions, please contact [facility] care provider. Indication: Trauma Technique: Volumetric [...] note that all CT scans at this [facility] use dose modulation, iterative reconstruction, and/or [...] report s are released immediately into your [facility] medical record. ??You may view this report [...] note that all CT scans at this [facility] use dose modulation, iterative reconstruction, and/or [...] note that all CT scans at this [facility] use dose modulation, iterative reconstruction, and/or weight-based dosing when appropriate to reduce radiation dose to as low as reasonably achievable. Dictated by Estevan Tubbs MD @ 06/14/20 8:16:47 PM (Electronically Signed) Rosenda Blancas MD CT BLOOD CULTURE (06/14/2022 6:36 PM CDT)Only the most recent of4 resultswithin the time period is included. athologist Signature CULTURE No growth 06/19/2022 [facility] to date. 9:55 PM [facility] Specimen Anatomical Collection Method / Collection Time Recei laura Time (Source) Location / Volume Laterality Blood BLOOD SPECIMEN / Venipuncture / 06/14/2022 6:36 2021 6:42 Unknown Unknown PM CDT PM CDT Rosenda Blancas MD MICROBIOLOGY Performing Organization Address City/State/ZIP Code Phon e Number [facility] [address] [place] [address] TROPONIN I (06/14/2022 6:35 PM CDT)Only the most recent of2 resultswithin the time period is included. athologist Signature TROPONIN I 0.019 <0.034 06/14/2022 [facility] ng/mL 7:11 PM [facility] Specimen Anatomical Collection Method / Collection Time Recei laura Time (Source) Location / Volume Laterality Blood BLOOD SPECIMEN / Venipuncture / 06/14/2022 6:35 2021 6:42 Unknown Unknown PM CDT PM CDT Rosenda Blancas MD CHEMISTRY Performing Organization Address City/[facility]/ZIP Code Phon e Number [facility] [address] [place] [address] (ABNORMAL) BRAIN NATRIURETIC PEPTIDE (06/14/2022 6:35 PM CDT)Only the most recent of4 resultswithin the time period is included. P athologist Signature BRAIN FILIPPO 116 (H) <100 pg/mL 06/14/2022 [place] PEPTIDE 7:12 PM CDT MEDICAL CENTER LABORATORY Specimen Anatomical Collection Method / Collection Time Recei laura Time (Source) Location / Volume Laterality Blood BLOOD SPECIMEN / Venipuncture / 06/14/2022 6:35 2021 6:42 Unknown Unknown PM CDT PM CDT Rosenda Blancas MD CHEMISTRY Performing Organization Address [facility] Code Phon e Number [facility] [address] [place] [address] (ABNORMAL) COVID 19 (06/14/2022 6:34 PM CDT)Only the most recent of2 results within the time period is included. Patholo gist Method Time Signature COVID 19 Detected (A) Not detected 06/14/2022 [place] 6:59 PM CDT [facility] Specimen Anatomical Location / Collection Method Collection Siddhartha e Received Time (Source) Laterality / Volume Other SPECIMEN FROM Non-Blood / 06/14/2022 6:34 06/14/2022 6:37 NASOPHARYNGEAL Unknown PM CDT PM CDT STRUCTURE / Unknown Narrative [facility] - 6:59 PM CDT This [...] Rosenda Blancas MD MICROBIOLOGY Performing Organization Address [facility]/ZIP Code Phon e Number [facility] [address] [place] [address] COVID 19 COLLECTION (06/14/2022 6:34 PM CDT)Only the most recent of2 results within the time period is included. [facility] Method Time Signature TESTING [facility] 06/14/2022 [place] [facility] Laboratory 6:38 PM CDT [facility] Comment: Specimen submitted to [facility] for testing. Specimen Anatomical Location / Collection Method Collection Siddhartha e Received Time (Source) Laterality / Volume Other SPECIMEN FROM Non-Blood / 06/14/2022 6:34 06/14/2022 6:37 NASOPHARYNGEAL Unknown PM CDT PM CDT STRUCTURE / Unknown Rosenda Blancas MD SEND OUTS Performing Organization Address [facility]/ZIP Code Phon e Number [facility] [address] [place] [address] POTASSIUM (06/05/2022 5:47 AM CDT) P athologist Signature POTASSIUM 4.0 3.5 - 5.0 06/05/2022 [facility] mmol/L 6:36 AM CDT [facility] Specimen Anatomical Collection Method / Collection Time Recei laura Time (Source) Location / Volume Laterality Blood BLOOD SPECIMEN / Venipuncture / 06/05/2022 5:47 2021 6:05 Unknown Unknown AM CDT AM CDT Víctor Schuler DO CHEMISTRY Performing Organization Address [facility]/ZIP Code Phon e Number [facility] [address] [place] [address] (ABNORMAL) BLOOD GAS,VENOUS (06/03/2022 5:47 AM CDT)Only the most recent of2 resultswithin the time period is included. [facility] gist Method Time Signature PH, VENOUS 7.32 7.32 - 7.43 06/03/2022 [place] 6:09 AM CDT [facility] PCO2, VENOUS 41 41 - 51 06/03/2022 [facility] mmHg 6:09 AM [facility] PO2, VENOUS 45 (H) 35 - 40 06/03/2022 [place] mmHg 6:09 AM [facility] HCO3,VENOUS 21 (L) 22 - 29 06/03/2022 [place] mmol/L 6:09 AM [facility] BASE EXCESS, -4.8 (L) -2.0 - 3.0 06/03/2022 [place] VENOUS, POCT 6:09 AM [facility] O2 SATURATION, 83 (H) 70 - 75 % 06/03/2022 [place] VENOUS 6:09 AM [facility] PATIENT 37.0 Degrees C 06/03/2022 [place] TEMPERATURE 6:09 AM [facility] Specimen Anatomical Collection Method / Collection Time Recei laura Time (Source) Location / Volume Laterality Blood VENOUS BLOOD Venipuncture / 06/03/2022 5:47 06/03/2022 6:02 SPECIMEN / Unknown Unknown AM CDT AM CDT Víctor Schuler DO CHEMISTRY Performing Organization Address City/State/ZIP Code Phon e Number [facility] [address] [place] [address] US RENAL BILATERAL (06/02/2022 3:34 PM CDT) [...] s are released immediately into your [facility] medical record. ??You may view this report [...] If you have questions, please contact [facility] health care provider. INDICATION: Renal transplant. Urinary [...] (ABNORMAL) URINE CULTURE (06/02/2022 12:45 AM CDT) [facility] Method Time Signature CULTURE RESULT (A) 06/04/2022 [facility] 7:59 AM CDT LABORATORY-[facility] TRAL LABORATORY CULTURE >100,000 CFU/mL 06/04/2022 [facility] Escherichia coli 7:59 AM CDT LABORATORY- [facility] TRAL LABORATORY CULTURE <10,000 CFU/mL 06/04/2022 [facility] Multiple 7:59 AM CDT LABORATORY-[facility] organisms TRAL [...] Cayetano Shay MD MICROBIOLOGY Performing Organization Address City/[facility] Phon e Number [facility] [address] [place] [address] LABORATORY-CENTRAL 2000 LABORATORY INFLUENZA A/B/H1N1 PCR (06/02/2022 12:39 AM CDT) [facility] gist Method Time Signature INFLUENZA A NOT Detected 06/02/2022 [place] PCR 1:23 AM CDT [facility] INFLUENZA B NOT Detected 06/02/2022 [place] PCR 1:23 AM CDT [facility] Specimen Anatomical Location / Collection Method Collection Siddhartha e Received Time (Source) Laterality / Volume Other SPECIMEN FROM Non-Blood / 06/02/2022 12:39 06/02/2022 NASOPHARYNGEAL Unknown AM CDT 12:52 AM CDT STRUCTURE / Unknown Cayetano Shay MD MICROBIOLOGY Performing Organization Address City/[facility] Code Phon e Number [facility] [address] [place] [address] EKG 12 Lead (06/02/2022 12:29 AM CDT) Component Value Ref Range Test Analysis Performed Patholog t Method Time At Signature Interpretation Atrial fibrillation BEYON D NOW Nonspecific ST abnormality Abnormal ECG Ventricular Rate 79 BPM BEYOND NOW Atrial Rate 69 BPM BEYOND NOW P-R Interval ms BEYOND NOW QRS Duration 110 ms BEYOND NOW QT 362 ms BEYOND NOW QTc 415 ms BEYOND NOW P Stanton degrees BEYOND NOW R Stanton 26 degrees BEYOND NOW T Stanton 26 degrees BEYOND NOW Specimen Anatomical Collection Method Collection Time Receive d Time (Source) Location / / Volume Laterality 06/02/2022 12:29 06/02/2022 4:21 AM CDT AM CDT Cayetano Shay MD EKG ORD Performing Organization Address City/State/ZIP Code Phon e Number [place] NOW [place], [place] (ABNORMAL) C-REACTIVE PROTEIN (06/02/2022 12:25 AM CDT) [facility] C-REACTIVE 1.36 (H) <0.50 06/02/2022 [place] PROTEIN mg/dL 5:38 AM CDT [facility] Specimen Anatomical Collection Method Collection Time Receive d Time (Source) Location / / Volume Laterality Blood BLOOD SPECIMEN / Butterfly / 06/02/2022 12:25 022 Unknown Unknown AM CDT 12:29 AM CDT Giovanni Lara MD CHEMISTRY Performing Organization Address City/State/ZIP Code Phon e Number [facility] [address] [place] [address] from Last 3 Months Additional Health Concerns Infection Onset Date Last Indicated MRSA ClearanceComment: If >12 months sin ce positive culture, precautions can be discontinued if patient has no MRSA risk factors. 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 right check exclusions for contact precaution dis continuation (if > 12 months since positive culture): resides in acute/termination clerk care, receiving hemodialysis, has chronic open wounds/skin [...] Group Dates MEDICARE PART MEDICARE PART A [id number] 2011-Prese A TTN: CLAIMS A - HB USE HB ONLY nt [address] ONLY [facility] [place] [address] MEDICARE PART MEDICARE PART B [id number] 2012-Pres A TTN: CLAIMS B - HB USE HB ONLY ent [address] ONLY [facility] [place] [address] MEDICARE - PB MEDICARE PB [id number] 2014-Prese ATTN: CLAIMS USE ONLY ONLY nt [address] [facility] [place] [address] BLUE CROSS BLUE CROSS OF [id number] 2016-Prese [address] [place] [address] BLUE CROSS BLUE CROSS OF [id number] 2013-Prese [address] [place] [address] MEDICARE PPS HC MEDICARE PPS [id number] 2011-Prese [address] [place] [address] (Home) [place] [address] Diego Guthrie Personal/Family Self [address] (Home) [place] [id number] Diego Guthrie Personal/Family Self [address] (Home) [place] [id number] Diego Guthrie Shelter Self [address] (Home) [place] [id number] Advance Directives Documents on File Type Date Recorded Patient Flight Reservations Manager Explanati on POLST 09/26/2020 Latest Code Status [...] PM Code Status Discussion: Discussed Care Teams Mud Logger Relationship Specialty Start Date End Date Momo Forbes MD PCP - General Family Practice 01/22/211999 [place] [address]
--- OUTSIDE RECORDS SUMMARY | 2022-07-10 13:58 | XMS_ITS | Encounter Summary ---
:1950 Author Organization [place] Address [address] [place] [address] Care Team Providers Name Role Phone Momo Forbes Primary Care Provider Joseph Quintana MD Unavailable Reason for Visit Reason Onset Date Comments Transplant 01/21/2022 Hyperglycemia, eleva moni [facility] Encounter Details Date Type Department Care Team Description 01/21/[address] [facility] Gretta Peacock RN Trans plant Transplant Clinic (Hyperglycemia, elevated [address] [facility]) [place] [address] Social History Tobacco Use [...] 12:07 PM CDT ISSUE: trend up in [facility], hyperglycemia OUTCOME: phone call attempted X3. Will send letter via mail. Gretta Peacock pantograph setterMeat Cooler [phone] documented in this encounter Plan of Treatment Not on filedocumented as of this encounter Visit Diagnoses Not on filedocumented in this encounter Care Teams Collections Technician Relationship Specialty Start Date End Date Momo Forbes PCP - General Family Practice 01/02/14 [facility] [address] [place] [address] Joseph Quintana, Assigned Nephrology 03/29/21 MD Provider [address] [place] [address] [address] [place] [address] documented as of this encounter
--- OUTSIDE RECORDS SUMMARY | 2022-07-10 13:58 | XMS_ITS | Encounter Summary ---
:1950 Author Organization [place] Address [address] [place] [address] Care Team Providers Name Role Phone Momo Forbes Primary Care Provider Joseph Quintana MD Unavailable Reason for Visit Reason Onset Date Comments Transplant 06/17/2022 Covid reassessment Encounter Details Date Type Department Care Team Description 06/17/2022 Telephone [facility] Gret[facility] Peacock [facility] [address] [place] [phone] Social History Tobacco Use Types Packs/Day [...] Covid + 06/01/2022 with inpatient stay at [facility] where MMF was held. Resumed MMF [...] 750mg bid OUTCOME: Patient was readmitted to [facility] with complications of Covid 19 per patient. Difficult to hear patient as he has bad cell phone service at hospital. Spoke with staff member on inpatient unit. Patient is private information unable to be given to RNCC. Provided provider to providernumber to staff member to pass along to RN or inpatient provider. V/U of calling [facility] transplant nephrology to discuss IS. Gretta Peacock vallez filter operatorTextile Knitter [phone] documented in this encounter Plan of Treatment Not on filedocumented as of this encounter Visit Diagnoses Not on filedocumented in this encounter Care Teams Civil Engineering Project Manager Relationship Specialty Start Date End Date Momo Forbes PCP - General Family Practice 01/02/14 [facility] [address] [place] [address] Joseph Quintana, Assigned Nephrology 03/29/21 MD Provider [address] [place] [address] [address] [place] [address] documented as of this encounter
--- OUTSIDE RECORDS SUMMARY | 2022-07-10 13:58 | XMS_ITS | Encounter Summary ---
:1950 Author Organization [place] Address [address] [place] [address] Care Team Providers Name Role Phone Momo Forbes Primary Care Provider Mariano, Joseph Durham MD Unavailable Reason for Visit Reason Onset Date Comments Transplant 12/02/2021 Encounter Details Date Type Department Care Team Description 12/02/2021 Telephone [facility] Transplant Obdulia Peacock, door patcher Clinic [address] [place] [phone] Social History Tobacco Use Types Packs/Day [...] confirm he received message. Gretta Peacock RN Wine Consultant [phone] ADDENDUM: left message for patient stating he has active orders at preferred lab. Asked to please obtain a full set of transplant labs as soon as possible. Gretta Peacock door patcherWine Consultant [phone] documented in this encounter Plan of Treatment Not on filedocumented as of this encounter Visit Diagnoses Not on filedocumented in this encounter Care Teams Area Supervisor Relationship Specialty Start Date End Date Momo Forbes PCP - General Family Practice 01/02/14 [facility] [address] [place] [address] Joseph Quintana, Assigned Nephrology 03/29/[address] [place] [address] [address] [place] [address] documented as of this encounter
--- OUTSIDE RECORDS SUMMARY | 2022-07-10 13:58 | XMS_ITS | Encounter Summary ---
:1950 Author Organization [place] Address [address] [place] [address] Care Team Providers Name Role Phone Momo [...] Call Transplant Clinic (Left 05/06/2022 at 9 [facility] SE 11:55PM., Wanted to [place], [place] discuss lab results) [phone] Social History [...] filedocumented in this encounter Care Teams General Inspector Relationship Specialty Start Date End Date Momo Forbes PCP - General Family Practice 01/02/14 [facility] [address] [place] [address] Joseph Quintana, Assigned Nephrology 03/29/21 MD Provider 717 [facility] 353 [facility] [address] [place] [address] documented as of this encounter
--- OUTSIDE RECORDS SUMMARY | 2022-07-10 13:58 | XMS_ITS | Encounter Summary ---
:1950 Author Organization [place] Address [facility] [place] [address] Care Team Providers Name Role Phone Momo Forbes Primary Care Provider Joseph Quintana MD Unavailable Reason for Visit Reason Onset Date Comments Erroneous encounter-disregard 05/02/2022 Encounter Details Date Type Department Care Team Description 05/02/2022 [facility] Gretta Peacock, BOGDAN [facility] Transplant Clinic encounter-disregard [address] [place] [address] Social History Tobacco Use Types [...] filedocumented in this encounter Care Teams Farm Worker Relationship Specialty Start Date End Date Momo Forbes PCP - General Family Practice 01/02/14 [facility] [address] [place] [address] Joseph Quintana, Assigned Nephrology 03/29/21 Provider 717 [facility] 353 [facility] [address] [place] [address] documented as of this encounter
--- OUTSIDE RECORDS SUMMARY | 2022-07-10 13:58 | XMS_ITS | Encounter Summary ---
:1950 Author Organization [place] Address [address] [place] [address] Care Team Providers Name Role Phone Momo Forbes Primary Care Provider Joseph Quintana MD Unavailable Encounter Details Date Type Department Care Team Description 12/09/2021 External Order [facility] Outside, Provide r Results Molecular Diagnostic s [address] [place] [phone] Social History Tobacco Use Types Packs/Day Years [...] (12/09/2021 11:50 AM CDT) Analysis Performed At [facility] logist Time Signature WBC Count 7.68 [...] filedocumented in this encounter Care Teams Automatic Pattern Edger Relationship Specialty Start Date End Date Momo Forbes PCP - General Family Practice 01/02/14 [facility] [address] [place] [address] Jsoeph Quintana, Assigned Nephrology 03/29/21 MD Provider [address] [place] [address] 1932 [place], [place] [address] documented as of this encounter
--- OUTSIDE RECORDS SUMMARY | 2022-07-10 13:58 | XMS_ITS | Encounter Summary ---
:1950 Author Organization [place] Address [address] [facility] [place] [address] Care Team Providers Name Role Phone Momo Forbes Primary Care Provider Joseph Quintana MD Unavailable Encounter Details Date Type Department Care Team Description 06/02/2022 Documentation Only [facility] Dash Gómez am, MD Nephrology Clinic [address] [place] [phone] Social History Tobacco Use Types Packs/Day Years [...] Satish Gómez MD, [place] Transplant Nephrology Pager: [phone] documented in this encounter Plan of Treatment Not on filedocumented as of this encounter Visit Diagnoses Not on filedocumented in this encounter Care Teams Chocolate Finisher Operator Relationship Specialty Start Date End Date Momo Forbes PCP - General Family Practice 01/02/14 [facility] [address] [place] [address] Joseph Quintana, Assigned Nephrology 03/29/21 MD Provider 717 [facility] 353 [facility] 1932 [place] [address] documented as of this encounter
--- OUTSIDE RECORDS SUMMARY | 2022-07-10 13:58 | XMS_ITS | Encounter Summary ---
:1950 Author Organization [place] Address [address] [place] [address] Care Team Providers Name Role Phone Momo Forbes Primary Care Provider Joseph Quintana MD Unavailable Encounter Details Date Type Department Care Team Description 11/16/2021 External Order [facility] Outside, Provide r Results Molecular Diagnostic s [address] [place] [phone] Social History Tobacco Use Types Packs/Day Years [...] City/State/[facility] Code Phon e Number [facility] P[facility] NON-INTERFACED (ONBASE SCANS) (ABNORMAL) Lipid Profile (11/16/2021 7:12 PM CDT) [facility] Method Time Signature Cholesterol 98 90 [...] Platelets & Differential (11/16/2021 4:35 PM CDT) [facility] Method Time Signature WBC Count 6.8 [...] on filedocumented in this encounter Care Teams Tail Ripper Relationship Specialty Start Date End Date Momo Forbes PCP - General Family Practice 01/02/14 [facility] [address] [place] [address] Joseph Quintana, Assigned Nephrology 03/29/21 Provider 7 [facility] 353 [facility] [address] [place] [address] documented as of this encounter
--- OUTSIDE RECORDS SUMMARY | 2022-07-10 13:58 | XMS_ITS | Encounter Summary ---
:1950 Author Organization [place] Address [address] [place] [address] Care Team Providers Name Role Phone Momo Forbes Primary Care Provider Mariano, Joseph Durham MD Unavailable Reason for Visit Reason Onset Date Comments Transplant Lab 12/10/2021 Encounter Details Date Type Department Care Team Description 12/10/2021 Telephone [facility] Transplant Mati Recinos RN Transplant Lab Clinic [address] [place] [phone] Social History Tobacco Use Types Packs/Day [...] filedocumented in this encounter Care Teams Laborer Stores Relationship Specialty Start Date End Date Momo Forbes PCP - General Family Practice 01/02/14 [facility] [address] [place] [address] Joseph Quintana, Assigned Nephrology 03/29/21 MD Provider [address] [place] [address] 1932 [place], [place] [id number] documented as of this encounter
--- OUTSIDE RECORDS SUMMARY | 2022-07-10 13:58 | XMS_ITS | Continuity of Care Document ---
:1950 Author Organization [facility] Address [address] [address] [place] [address] Phone Care Team Providers Name Role Phone [...] Information Information [facility], 1 [address] [address], [place], [place], [id number], [place] tel:[phone] DEMARCO Cross No Darling MICHELE Referring [facility] Information Davis. Pro vider: [facility], Hosp [address] [place] [address], Street [place], [address] [facility] [address], [place], [place], [facility] [id number], [place], [address], [place] [id number], [place] tel:+ . , [place], [id number] tel:[phone] . tel:[phone] [facility] Pancreas Nesset ROTARY DUMP OPERATOR Digestive Clinic cyst Joan. 3001 Health [facility], [address] [place] [address], [address], [place] [facility], [place], [place], [id number], [id number], [place]. tel:+ tel:[phone] [facility] December- Nesset ROTARY DUMP OPERATOR Digestive Clinic cyst Joan. [address], 1 [place] [address], [address], [facility], s, [place], [place], [id number], [id number], [place]. tel: tel:[phone] [facility] [place] Pancreas Sep- Nesset ROTARY DUMP OPERATOR Digestive Clinic cyst Joan. 3001 [facility], [address] [place] [address] [place], [address], [address], [facility], s, [place], [place], [id number], [id number], [place]. tel: tel:[phone] Subsqt [facility] Cross No Sep- Nesset ROTARY DUMP OPERATOR Referring Hosp-da E&m Digestive [facility] Information Joan. 20 09 Provider: Shay [facility], Hosp [address] [place] [address] NE, Aren BOILER OR ENGINE OPERATOR [address], [address], [place], [address] [facility] [address], [place], [place], [place], [place], [id number], [id number], [place], [address]. [place]. tel:+50 tel: tel:[phone] Init Hosp-da [facility] Cross No Aug- Prem MICHELE Referri ng E&m Mod Digestive [facility] Information Angelina. 3001 P rovider: [facility], Hosp [address] [place] [address] NE, Arendt BOILER OR ENGINE OPERATOR [address], [address], [place], [address], [place], [place], [place], [place], [id number], [id number], [place], [address]. [place]. tel:+50 tel: tel:[phone] Family History Family Member Type Diagnosis Age [...] Registry Payers Payer name Insurance type Covered alliance party ID Authorization(s ) No Information Social [...]
--- OUTSIDE RECORDS SUMMARY | 2022-07-10 13:58 | XMS_ITS | Encounter Summary ---
:1950 Author Organization [place] Address [address] [place] [address] Care Team Providers Name Role Phone Momo Forbes Primary Care Provider Joseph Quintana MD Unavailable Reason for Visit Reason Onset Date Comments Call Back 06/18/2022 Medications Encounter Details Date Type Department Care Team Description 06/18/2022 Telephone [facility] Satish Gómez MD Call Back (Medications) Nephrology Clinic [address] [place] [phone] Social History Tobacco Use Types Packs/Day Years [...] 06/21/2022 2:28 PM CDT General Route to TRANSITION ASSISTANT Reason for call: Diego was returning a missed call Call back needed? Yes Return Call Needed Same as documented in contacts section When to return call?: Same day: Route High Priority Telephone Encounter - Luann Lagunas - 06/18/2022 12:12 PM CDT M [facility] Call Center Phone Message May [...] Please have Dr. Gómez reach out to [facility] [phone] - [facility]. Thanks Action Taken: Message routed to: [facility] Neph Travel Screening: Not Applicable documented in this encounter Plan of Treatment Not on filedocumented as of this encounter Visit Diagnoses Not on filedocumented in this encounter Care Teams Developing Machine Tender Relationship Specialty Start Date End Date Momo Forbes PCP - General Family Practice 01/02/14 [facility] [address] [place] [address] Joseph Quintana, Assigned Nephrology 03/29/21 MD Provider 717 [facility] 353 [facility] 1932 [place], [place] [address] documented as of this encounter
--- OUTSIDE RECORDS SUMMARY | 2022-07-10 13:58 | XMS_ITS | Encounter Summary ---
:1950 Author Organization [place] Address [address] [place] [address] Care Team Providers Name Role Phone Momo Forbes Primary Care Provider Joseph Quintana MD Unavailable Encounter Details Date Type Department Care Team Description 04/29/2022 External Order [facility] Outside, Provide r Results Molecular Diagnostic s [address] [place] [phone] Social History Tobacco Use Types Packs/Day Years [...] URINE ORDERABLES Performing Organization Address City/[facility] Code Phon e Number [...] filedocumented in this encounter Care Teams Solar Resource Assessor Relationship Specialty Start Date End Date Momo Forbes PCP - General Family Practice 01/02/14 [facility] [address] [place] [address] Joseph Quintana, Assigned Nephrology 03/29/21 Provider 717 [facility] 353 [facility] [address] [place] [address] documented as of this encounter
--- OUTSIDE RECORDS SUMMARY | 2022-07-10 13:58 | XMS_ITS | Clinical Summary ---
:1950 Author Organization [place] Address [facility]0 [facility] [place] [address] Care Team Providers Name Role Phone Momo Forbes Primary Care Provider Joseph Quintaan MD Unavailable Allergies Active Allergy Reactions Severity [...] Problem list name updated by automated p CHAINelsess. Provider to review Gout 12/02/2011 Peripheral neuropathy 12/02/2011 Diabetic retinopathy 12/02/2011 HTN, kidney transplant related 12/02/2011 Overview: Problem list name updated by automated p CHAINelsess. Provider to review DM (diabetes mellitus), type 2 12/02/2011 History of tobacco use 12/02/2011 Thrombocytopenia 12/02/2011 Malaise and fatigue 12/02/2011 Overview: Problem list name updated by automated p CHAINelsess. Provider to review Depression Resolved Problems Problem [...] Solid Organ Gretta Peacock, Transplant (C ovid heavy equipment operator apprentice reassessment/) 06/07/2022 Telephone Solid Organ Gretta Peacock, Transplant (C ovid heavy equipment operator apprentice reassessment ) 06/05/2022 Telephone Solid Organ Evelyn Schuster, heavy equipment operator apprentice 06/02/2022 Documentation Only NephSatish Reyes MD 05/06/2022 Telephone Solid Organ Gretta Peacock, Left Message To heavy equipment operator apprentice Call (Left VM 05/06/2022 at 11:55PM., Wante d to discuss lab results) 05/04/2022 Telephone Solid Organ Gretta Peacock Transplant La b heavy equipment operator apprentice (Elevated serum creatinine and proteinuria) 05/02/2022 Telephone Solid Organ Gretta Peacock, Erroneous heavy equipment operator apprentice encounter-disre sebastian 04/29/2022 External Order Lab Outside, Results Provider 04/13/2022 Telephone Solid Organ Gretta Peacock, Voicemail heavy equipment operator apprentice from Last 3 Months Immunizations Name Administration [...] Comments Blood Pressure 169/76 10/09/2019 2:35 PM BLAST FURNACE HELPER Pulse 67 10/09/2019 2:35 PM BLAST FURNACE HELPER Temperature 36.5 ??C (97.7 ??F) 10/17/2018 1:54 PM BLAST FURNACE HELPER Respiratory Rate 18 10/25/2016 4:39 PM BLAST FURNACE HELPER Oxygen Saturation 95% 10/09/2019 2:35 PM BLAST FURNACE HELPER Inhaled Oxygen Concentration - - Weight 132.5 kg (292 lb 1.6 oz) 10/09/2019 2:35 PM BLAST FURNACE HELPER Height 182.9 cm (6') 10/10/2017 2:25 PM BLAST FURNACE HELPER Body Mass Index 39.62 10/10/2017 2:25 PM BLAST FURNACE HELPER Plan of Treatment Health Maintenance Due Date [...] this topic Medical Devices Explanted Type Area Seo Assistant Device Shelf Model / Identifier Expiration Serial / Date Lot Stent Ureteral Childress Renal Transplant [id number] Right: [employer] 11/19/2016 [id number] / Implanted: Qty: 1 on 02/02/2014 by Migel Viveros MD at [facility] [employer] / Explanted: Qty: 1 on 04/01/2014 by Celina Helton MD at [facility] [id number] Procedures Procedure Name Priority Date/Time Associated Comments [...] Platelets & Differential (04/29/2022 11:40 AM CDT) [facility] gist Method Time Signature WBC Count [...] LAB - BLOOD ORDERABLES Performing Organization Address City/[facility]/ZIP Code Phon e Number BREEZE [...] Address T ype Group Dates MEDICARE MEDICARE [id number] 2011-Prese [phone] ATTN [place] Medicare nt 40 [address] [facility] [place] [address] BCBS BCBS OF MD [id number] 2016-Prese [phone] [address] [address] Indemnity nt 00 [place] [address] Diego Guthrie Personal/Family Self [address] [place] ([place]) [place] [address] Advance Directives For more information, please contact: [phone] Latest Code Status on File Code Status Date Activated Date Inactivated Comments Full Code 04/01/2014 9:03 AM Code Status History Code Status Date Activated Date Inactivated Comments Full Code 02/08/2014 7:12 AM 04/01/2014 9:03 AM Full Code 02/03/2014 12:56 AM 02/08/2014 7:12 AM Care Teams Termination Clerk Relationship Specialty Start Date End Date Momo Forbes PCP - General Family Practice 01/02/14 [facility] [address] [place] [address] Joseph Quintana, Assigned Nephrology 03/29/21 MD Provider [address] [place] [address] [address] [place], [place] [id number]
--- OUTSIDE RECORDS SUMMARY | 2022-07-10 13:58 | XMS_ITS | Encounter Summary ---
:1950 Author Organization [place] Address [facility] [place] [address] Care Team Providers Name Role Phone Momo Forbes Primary Care Provider Joseph Quintana MD Unavailable Reason for Visit Reason Onset Date Comments Transplant 06/07/2022 Covid reassessment Encounter Details Date Type Department Care Team Description 06/07/2022 Telephone [facility] Gretta Peacock RN [facility] [address] [place] [phone] Social History Tobacco Use Types Packs/Day [...] that. Mycophenolate was held while inpatient at [facility]. Patient was discharged yesterday, Patient resumed his usual dose of MMF 750 mg bid. Current symptoms: cough, denies SOB. States he is feeling well. Will update transplant nephrology. Gretta Peacock RN Toy Parts Former Supervisor [phone] ADDENDUM: Satish Gómez MD Sveiven, Sara, RN I would actually have him take MMF 500mg bid and if feeling ok in 1 week increase to 750mg bid Patient v/u of taking MMF 500 mg bid for one week. Will reassess symptoms in one week. Gretta Peacock wood veneer taperToy Parts Former Supervisor [phone] documented in this encounter Plan of Treatment Not on filedocumented as of this encounter Visit Diagnoses Not on filedocumented in this encounter Care Teams Dewatering Filtering Supervisor Relationship Specialty Start Date End Date Momo Forbes PCP - General Family Practice 01/02/14 [facility] [address] [place] [address] Joseph Quintana, Assigned Nephrology 03/29/21 Provider [address] [place], [place] [address] documented as of this encounter
--- OUTSIDE RECORDS SUMMARY | 2022-07-10 13:58 | XMS_ITS | Encounter Summary ---
:1950 Author Organization [place] Address [facility] [place] [address] Care Team Providers Name Role Phone Momo Forbes Primary Care Provider Mariano, Joseph Durham MD Unavailable Reason for Visit Reason Onset Date Comments Voicemail 04/13/2022 Encounter Details Date Type Department Care Team Description 04/13/2022 Telephone [facility] Transplant Obdulia Peacock, RN Voicemail Clinic [address] [place] [phone] Social History Tobacco Use Types Packs/Day [...] to patient via mail Gretta Peacock RN Sanitation Technician [phone] Telephone Encounter - Adriana Raza - 04/13/2022 2:31 PM CDT Voicemail Date/Time: 04/13/22 2:27 pm Reason for call: Diego received a letter stating we have been trying ot reach him so he was responding documented in this encounter Plan of Treatment Not on filedocumented as of this encounter Visit Diagnoses Not on filedocumented in this encounter Care Teams Clinical Support Nurse Relationship Specialty Start Date End Date Momo Forbes PCP - General Family Practice 01/02/14 [facility] [address] [place] [address] Joseph Quintana, Assigned Nephrology 03/29/21 MD Provider 7 [facility] 353 [facility] [address] [place] [address] documented as of this encounter
--- OUTSIDE RECORDS SUMMARY | 2022-07-10 13:58 | XMS_ITS | Encounter Summary ---
:1950 Author Organization [place] Address [address] [place] [address] Care Team Providers Name Role Phone Momo Forbes Primary Care Provider Joseph Quintana MD Unavailable Encounter Details Date Type Department Care Team Description 01/19/[address] [facility] Outside, Provide r Results Molecular Diagnostic s [address] [place] [phone] Social History Tobacco Use Types Packs/Day Years [...] External Culture Results (01/19/2022 12:11 PM CDT) [facility] Method Time Signature Scan Culture See Scanned NON-INTERFACE Results Report D (ONBASE (External) SCANS) Specimen (Source) Anatomical Collection Method Collection Time Re ceived Time Location / / Volume Laterality 01/19/2022 12:11 PM CDT Narrative [facility] PFT - 01/25/2022 2:48 PM CDT Verified by Priscilla Mcdaniel on 01/25/2022. Provider Outside LABORATORY Performing Organization Address City/[facility]/ZIP Code Phon e Number BREEZE PFT NON-INTERFACED [...] LAB - URINE ORDERABLES Performing Organization Address City/[facility] Phon e Number BREEZE PFT [...] UA with Microscopic (01/19/2022 11:16 AM CDT) [facility] gist Method Time Signature Color Urine YEL YELLOW NON-INTERFAC (External) ED (ONBASE SCANS) Appearance Urine CLEAR CLEAR NON-INTERFAC (External) ED (ONBASE SCANS) Glucose Urine 2+ NEGATIVE NON-INTERFAC (External) ED (ONBASE SCANS) Bilirubin Urine NEG NEGATIVE NON-INTERFAC (External) ED (ONBASE SCANS) Ketones Urine NEG NEGATIVE NON-INTERFAC (External) ED (ONBASE SCANS) Specific [place] 1.010 1.005 - NON-INTERFAC Urine (External) [...] on filedocumented in this encounter Care Teams Savings Counselor Relationship Specialty Start Date End Date Momo Forbes PCP - General Family Practice 01/02/14 [facility] [address] [place] [address] Joseph Quintana, Assigned Nephrology 03/29/[address] [place] [address] [address] [place], [place] [phone] documented as of this encounter
--- OUTSIDE RECORDS SUMMARY | 2022-07-10 13:58 | XMS_ITS | Encounter Summary ---
:1950 Author Organization [place] Address [address] [place] [address] Care Team Providers Name Role Phone Momo Forbes Primary Care Provider Mariano, Joseph Durham MD Unavailable Reason for Visit Reason Onset Date Comments Transplant 11/24/2021 Encounter Details Date Type Department Care Team Description 11/24/2021 Telephone [facility] Transplant Obdulia Peacock, telecom engineer Clinic [address] [place] [phone] Social History Tobacco Use Types Packs/Day [...] had labs drawn ~one week ago at [facility], however results have not beenfaxed to [facility]. PLAN: call lab to have results faxed OUTCOME: New labs orders sent. Most recent bmp and cbc requested from october 2021. Tac and UPC due. Left detailed message with instructions to obtain tacrolimus trough level and UPC at earliest convenience. Asked for CB to confirm understanding. Gretta Peacock telecom engineerPc Installation Engineer [phone] Telephone Encounter - Azael Rodriguez - 11/24/2021 3:32 PM CDT Patient called to touch base with the RNCC regarding some questions. documented in this encounter Plan of Treatment Not on filedocumented as of this encounter Visit Diagnoses Not on filedocumented in this encounter Care Teams Lighting Director Relationship Specialty Start Date End Date Momo Forbes PCP - General Family Practice 01/02/14 [facility] [address] [place] [address] Joseph Quintana, Assigned Nephrology 03/29/21 MD Provider [address] [place] [address] [address] [place] [address] documented as of this encounter
--- OUTSIDE RECORDS SUMMARY | 2022-07-10 13:59 | XMS_ITS | Encounter Summary ---
:1950 Author Organization [place] Address [address] [place] [address] Care Team Providers Name Role Phone Momo Forbes Primary Care Provider Encounter Details Date Type Department Care Team Description 01/30/2021 Telephone [facility] Transplant Viv Torres RN [place] [phone] Social History Tobacco Use Types Packs/Day [...] included. Message Received: Today Beny Stat[place], [facility] Barbie Ugalde, BOGDAN Diego has not ordered tacro 0.5mg in over a year. ??He just ordered 1mg today but not the 0.5mg. Beny Staton [facility] Specialty Pharmacist [phone] SOLE CUTTER task: Can you please call Diego to find out what dose of tacrolimus he is taking and notify coordinator if different than what is prescribed. Recommend repeat tacrolimus level for previously elevated level 7.3, goal 4-6. Thank you, Barbie Ugalde RN, BSN Solid Organ Transplant, Post Kidney and Pancreas Transplant Oncology Social Work [phone] Telephone Encounter - Viv Torres RN - [...] in this encounter Care Teams Professor Of Social Work Relationship Specialty Start Date End Date Momo Forbes PCP - General Family Practice 01/02/14 [place] [address] documented as of this encounter
--- OUTSIDE RECORDS SUMMARY | 2022-07-10 13:59 | XMS_ITS | Encounter Summary ---
:1950 Author Organization [place] Address [address] [place] [address] Care Team Providers Name Role Phone Momo Forbes Primary Care Provider Joseph Quintana MD Unavailable Encounter Details Date Type Department Care Team Description 01/27/[address] [facility] Outside, Provider Results Transplant Clinic [address] [place] [phone] Social History Tobacco Use Types Packs/Day [...] with platelets differential (01/27/2021 11:45 AM CDT) [facility] gist Method Time Signature WBC Count [...] on filedocumented in this encounter Care Teams Cycle Liaison Relationship Specialty Start Date End Date Momo Forbes PCP - General Family Practice 01/02/14 [facility] [address] [place] [address] Joseph Quintana, Assigned Nephrology 03/29/21 MD Provider [address] [place] [address] [address] [place] [address] documented as of this encounter
--- OUTSIDE RECORDS SUMMARY | 2022-07-10 13:59 | XMS_ITS | Encounter Summary ---
:1950 Author Organization [place] Address [facility] [place] [address] Care Team Providers Name Role Phone Momo Forbes Primary Care Provider Joseph Quintana MD Unavailable Encounter Details Date Type Department Care Team Description 02/02/2021 External Order [facility] Outside, Provider Results Transplant Clinic [address] [place] [phone] Social History Tobacco Use Types Packs/Day [...] by Cassie Florian on 02/04/2021. Performed by: [facility] [address] [place], [place] ??[address] Patient Reported LABORATORY Performing Organization Address City/State/ZIP Code Phon e Number JESSICA PFT COVID-19 EXTERNAL COVID[place] [address], [facility] RESULTS Result Scanned into Patient Record by [employer] Pay[employer] Refer to Result Comment/Narrative for exact performing laboratory documented in this encounter Visit Diagnoses Not on filedocumented in this encounter Care Teams Public Improvement Inspector Relationship Specialty Start Date End Date Momo Forbes PCP - General Family Practice 01/02/14 [facility] [address] [place] [address] Joseph Quintana, Assigned Nephrology 03/29/21 MD Provider [address] [facility] 353 [facility] [address] [place] [address] documented as of this encounter
--- OUTSIDE RECORDS SUMMARY | 2022-07-10 13:59 | XMS_ITS | Encounter Summary ---
:1950 Author Organization [place] Address [address] [place] [address] Care Team Providers Name Role Phone Forbes, Momo He Primary Care Provider Reason for Visit Reason Onset Date Comments Transplant Lab 05/28/2020 Encounter Details Date Type Department Care Team Description 05/28/2020 Telephone [facility] Barbie Ugalde nsplant Lab Transplant Clinic BOGDAN Nam [address] [place] [phone] Social History Tobacco Use Types [...] mg/dL on 05/26/20 at 1025 collected at [facility] [phone] (Phone) CBC appears as expected Missing BMP [...] filedocumented in this encounter Care Teams Clinical Outcomes Manager Relationship Specialty Start Date End Date Momo Forbes PCP - General Family Practice 01/02/14 [facility] [address] [place] [address] documented as of this encounter
--- OUTSIDE RECORDS SUMMARY | 2022-07-10 13:59 | XMS_ITS | Encounter Summary ---
:1950 Author Organization [place] Address [address] [place] [address] Care Team Providers Name Role Phone Momo Forbes Primary Care Provider Reason for Visit Reason Onset Date Comments Transplant 01/07/2021 Encounter Details Date Type Department Care Team Description 01/07/2021 Telephone [facility] Barbie Ugalde nsplanlynda Transplant Clinic BOGDAN Nam [address] [place] [address] [phone] Social History Tobacco Use Types Packs/Day [...] CDT Patient Call: Transplant Lab/Orders Route to INDUSTRIAL ENGINEERING INTERN Post Transplant Days: 2530 When patient is less than 60 days post-transplant, route high priority Reason for Call: Annual lab reorder fax labs to [facility] lab at [phone] Labs drawn Waiting fororders Callback needed? No documented in this encounter Plan of Treatment Not on filedocumented as of this encounter Visit Diagnoses Not on filedocumented in this encounter Care Teams Director Of Training Relationship Specialty Start Date End Date Momo Forbes PCP - General Family Practice 01/02/14 [facility] [address] [place] [address] documented as of this encounter
--- OUTSIDE RECORDS SUMMARY | 2022-07-10 13:59 | XMS_ITS | Encounter Summary ---
:1950 Author Organization [place] Address [facility]0 [facility] [place] [address] Care Team Providers Name Role Phone Momo Forbes Primary Care Provider Reason for Visit Reason Onset Date Comments Critical Values 07/08/2020 Encounter Details Date Type Department Care Team Description 07/08/2020 Telephone [facility] Cristy Chen LPN C ritical Values Transplant Clinic [address] [place] [address] [phone] Social History Tobacco Use Types Packs/Day Years Used Date Smoking Tobacco: Former Cigars Quit : 08/22/2006 Smokeless Tobacco: Never Alcohol Use Standard Drinks/Week Comments Yes 0 (1 standard drink = 0.6 oz pure alcoho l) occasional drink. 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 Per Dr. Huerta from visit in 10/09/19: # Diabetes: Poorly controlled (HbA1c >9%) Last HbA1c: 13.7%. - Management as per primary care. - Recommended all blood sugars stay below 200, with fasting between 90 and 130. ?? Latrell states that he lost his blood sugar meter but he can pick one up at [facility]. He asked how often he [...] level. Latrell states he returns to 08/08. SEWER Telephone Encounter - Cristy Chen LPN - 07/08/2020 3:39 PM CST DATE: 07/08/2020 TIME OF RECEIPT FROM LAB: 3:30 PM LAB TEST: Glucose LAB VALUE: 407 RESULTS GIVEN WITH READ-BACK TO (PROVIDER): Barbie Ugalde RN TIME LAB VALUE REPORTED TO PROVIDER: 3:39 PM SEWER documented in this encounter Plan of Treatment Not on filedocumented as of this encounter Visit Diagnoses Not on filedocumented in this encounter Care Teams Nozzle Operator Relationship Specialty Start Date End Date Momo Forbes PCP - General Family Practice 01/02/14 [facility] [address] [place] [address] documented as of this encounter
--- OUTSIDE RECORDS SUMMARY | 2022-07-10 13:59 | XMS_ITS | Encounter Summary ---
:1950 Author Organization [place] Address [address] [place] [address] Care Team Providers Name Role Phone ForbesMomo Primary Care Provider Reason for Visit Reason Onset Date Comments Transplant 07/11/2020 Encounter Details Date Type Department Care Team Description 07/11/2020 Telephone [facility] Barbie Ugalde Transplant Clinic BOGDAN Nam [address] [place], [place] [phone] Social History Tobacco Use Types Packs/Day Years Used Date Smoking Tobacco: Former Cigars Quit : 08/22/2006 Smokeless Tobacco: Never Alcohol Use Standard Drinks/Week Comments Yes 0 (1 standard drink = 0.6 oz pure alcoho l) occasional drink. Sex Assigned at Date Recorded Not on file documented as of this encounter Miscellaneous Notes Telephone Encounter - Barbie Ugalde RN - 07/11/2020 2:11 PM BEATER WORKER HELPER ISSUE: Potassium 5.2 on 07/08/20. PLAN: Assess for high dietary intake of potassium. Encouraged Diego to reduce the amount of bananas and potatoes he admitted to eating high amounts of. OUTCOME: Please have pt repeat BMP in 1 week. Orders sent ER WORKER HELPER Telephone Encounter - Barbie Ugalde RN - 07/11/2020 1:41 PM BEATER WORKER HELPER ISSUE: Tacrolimus IR level 2.2 on [...] repeatlabs. Patient voiced understanding of plan. 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
--- OUTSIDE RECORDS SUMMARY | 2022-07-10 13:59 | XMS_ITS | Encounter Summary ---
:1950 Author Organization [place] Address [facility] [place] [address] Care Team Providers Name Role Phone Momo Forbes Primary Care Provider Reason for Visit Reason Onset Date Comments Transplant 02/03/2021 spoke w pt and donna rmed annual neph appt on 03/05/21 Encounter Details Date Type Department Care Team Description 02/03/2021 Telephone [facility] Barbie Ugalde (spoke w pt Transplant Clinic BOGDAN Nam and confirmed annual [address] [facility] [address] neph appt on 03/05/21) [place] [phone] Social History Tobacco Use [...] filedocumented in this encounter Care Teams Machinist Supervisor Relationship Specialty Start Date End Date Momo Forbes PCP - General Family Practice 01/02/14 [facility] [address] [place], [place] [phone] documented as of this encounter
--- OUTSIDE RECORDS SUMMARY | 2022-07-10 13:59 | XMS_ITS | Encounter Summary ---
:1950 Author Organization [place] Address [facility] [address] Care Team Providers Name Role Phone Momo Forbes Primary Care Provider Encounter Details Date Type Department Care Team Description [facility] BOGDAN Nam [address] [place], [place] [phone] Social History Tobacco Use Types Packs/Day Years Used Date Smoking Tobacco: Former Cigars Quit : 08/22/2006 Smokeless Tobacco: Never Alcohol Use Standard Drinks/Week Comments Yes 0 (1 standard drink = 0.6 oz pure alcoho l) occasional drink. Sex Assigned at Date Recorded Not on file documented as of this encounter Miscellaneous Notes Telephone Encounter - Barbie Uaglde RN - 10/23/2020 4:27 PM COMMERCIAL TITLE EXAMINER Returned call and left second voicemail message. Patient mentioned in previous phone call he was interested in donating his body upon passing to [facility] for [facility]. Please sent to following website for more information: [email or web address] ERCIAL TITLE EXAMINER Telephone Encounter - Gladis Sosa RN - 10/23/2020 3:21 PM CST Patient Call: Voicemail Date/Time: 10/23/20 139pm Reason for call: Patient left a message requesting a call back ERCIAL TITLE EXAMINER documented in this encounter Plan of Treatment Not on filedocumented as of this encounter Visit Diagnoses Not on filedocumented in this encounter Care Teams Health Data Analyst Relationship Specialty Start Date End Date Momo Forbes PCP - General Family Practice 01/02/14 [facility] [address] [place] [address] documented as of this encounter
--- OUTSIDE RECORDS SUMMARY | 2022-07-10 13:59 | XMS_ITS | Encounter Summary ---
:1950 Author Organization [place] Address [facility] [place] [address] Care Team Providers Name Role Phone Momo Forbes Primary Care Provider Joseph Quintana MD Unavailable Reason for Visit Reason Onset Date Comments Refill Request 08/25/2021 Encounter Details Date Type Department Care Team Description 08/25/2021 Refill [facility] Transplant Debbie Calderon LPN Refill Request Clinic [address] [place] [phone] Social History Tobacco Use Types [...] transplant documented in this encounter Care Teams Shelter Monitor Relationship Specialty Start Date End Date Momo Forbes PCP - General Family Practice 01/02/14 [facility] [address] [place] [address] Joseph Quintana, Assigned Nephrology 03/29/[address] [place] [address] 353 [facility] [address] [place] [address] documented as of this encounter
--- OUTSIDE RECORDS SUMMARY | 2022-07-10 13:59 | XMS_ITS | Encounter Summary ---
:1950 Author Organization [place] Address [address] [place] [address] Care Team Providers Name Role Phone Forbes, Momo He Primary Care Provider Reason for Visit Reason Onset Date Comments Transplant Immunosuppression Management 09/08/2020 Encounter Details Date Type Department Care Team Description 09/08/[address] [facility] Tram, Transplant Transplant Clinic Barbie Nam, Rc [address] [place] [address] [place] [phone] Social History Tobacco Use Types [...] Barbie Ugalde RN - 09/09/2020 3:06 PM GLAZIER APPRENTICE Second call placed to patient and voicemail message left. IER APPRENTICE Telephone Encounter - Barbie Ugalde RN - 09/08/2020 10:31 AM GLAZIER APPRENTICE Images from the original note were not included. Message Received: 3 days ago Message Contents Beny Staton, [facility] Barbie Ugalde, BOGDAN ?? Latrell has not filled immunos since 07/21. ??His tacro dose changed and he has not filled the 0.5mg in over a year. ??He has not returned our calls. ?? Beny Staton [facility] Specialty Pharmacist [phone] OUTCOME: Tacrolimus dose was decreased from 2mg [...] he is currently taking and need labs. IER APPRENTICE documented in this encounter Plan of Treatment Not on filedocumented as of this encounter Visit Diagnoses Not on filedocumented in this encounter Care Teams Talent Acquisition Assistant Relationship Specialty Start Date End Date Momo Forbes PCP - General Family Practice 01/02/[address] [address] documented as of this encounter
--- OUTSIDE RECORDS SUMMARY | 2022-07-10 13:59 | XMS_ITS | Encounter Summary ---
:1950 Author Organization [place] Address [address] [place] [address] Care Team Providers Name Role Phone ForbesMomo Primary Care Provider Reason for Visit Reason Comments RECHECK Follow Up [place] Encounter Details Date Type Department Care Team Description 03/05/2021 Virtual Visit [facility] Joseph Quintana HTN, kevan dney transplant related (Primary Dx); Nephrology Clinic MD Herminio Kidney replaced by transplant; [address] Aftercare following organ tr ansplant; [address] [place] [address] SE [place] 353 [facility] Immunosu ppression (H); [place] [address] Vitamin D deficiency; [place] [phone] Social History Tobacco Use Types Packs/Day Years [...] would you like to be contacted at? [phone] How would you like to obtain your [...] unspecified documented in this encounter Care Teams Materials Intern Relationship Specialty Start Date End Date Momo Forbes PCP - General Family Practice 01/02/14 [facility] [address] [place] [address] documented as of this encounter
--- OUTSIDE RECORDS SUMMARY | 2022-07-10 13:59 | XMS_ITS | Encounter Summary ---
:1950 Author Organization [place] Address [facility]0 [facility] [address] Care Team Providers Name Role Phone Momo Forbes Primary Care Provider Joseph Quintana MD Unavailable Encounter Details Date Type Department Care Team Description 07/08/2020 External Order [facility] Outside, Provider Results Transplant Clinic [address] [place] [phone] Social History Tobacco Use Types Packs/Day [...] 9:23 AM Results f or this RESULTS CHARTER COORDINATOR procedure are i n the results section. documented in this encounter Results External Lab Results (07/08/2020 9:23 AM CHARTER COORDINATOR) Analysis Performed At Patho logist Time Signature Scan Lab View Image LABDE SCAN Results (External) Comment: HLA Antibody Screen, Class I an d Class II Specimen (Source) Anatomical Collection Method Collection Time Re ceived Time Location / / Volume Laterality 07/08/2020 9:23 AM CHARTER COORDINATOR Narrative JESSICA PFT - 07/16/2020 2:42 PM CHARTER COORDINATOR Verified by Ruperto Pepper on 07/15/20 20. Patient Reported LABORATORY Performing Organization Address City/State/ZIP Code Phon e Number [facility] PFT LABDE SCAN documented in this encounter Visit Diagnoses Not on filedocumented in this encounter Care Teams Dragline Operator Helper Relationship Specialty Start Date End Date oMmo Forbes PCP - General Family Practice 01/02/14 [facility] [address] [place] [address] Joseph Quintana, Assigned Nephrology 03/29/21 MD Provider [address] [place] [address] [address] [place], [place] [id number] documented as of this encounter
--- OUTSIDE RECORDS SUMMARY | 2022-07-10 13:59 | XMS_ITS | Encounter Summary ---
:1950 Author Organization [place] Address [address] [place] [address] Care Team Providers Name Role Phone Momo Forbes Primary Care Provider Reason for Visit Reason Onset Date Comments Transplant Immunosuppression Management 07/03/2020 Late to refill Encounter Details Date Type Department Care Team Description 07/03/2020 Telephone [facility] Tram, Transplant Transplant Clinic Barbie Nam, Immunosuppression [address] [place] [address] RN Management (Late to [place], [place] refill) [phone] Social History Tobacco Use [...] Barbie Ugalde RN - 07/03/2020 10:20 AM FOUNDRY SUPERINTENDANT Images from the original note were not included. Late to fill IS meds Received: Yesterday Message Contents Meghan Mccormack, [facility] Barbie Ugalde RN ?? Hi Diego [...] copy to patient so he is aware. 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
--- OUTSIDE RECORDS SUMMARY | 2022-07-10 13:59 | XMS_ITS | Encounter Summary ---
:1950 Author Organization [place] Address [address] [place] [address] Care Team Providers Name Role Phone Momo Forbes Primary Care Provider Joseph Quintana MD Unavailable Reason for Visit Reason Onset Date Comments Transplant Lab 05/04/2021 Encounter Details Date Type Department Care Team Description 05/04/2021 Telephone [facility] Transplant Krys Garcia, Transplant Lab Clinic RN [address] [place] [phone] Social History Tobacco Use Types [...] maroon colored stools. Stateshe had colonoscopy with Leo about a year ago. Appears in CareEverywhere colonoscopy was 03/20/2015. Latrell denies infectious symptoms currently but reports he had R foot surgery at [facility] this last winter for diabetic foot ulcer. Infection in bottom of foot; laid up since Sep. Pretty well healed except a little speck. Follows up with Dr. Chatterjee. Will check iron panel on next labs. Orders sent. Barbie Ugalde, RN, BSN Solid Organ Transplant, Post Kidney and Pancreas Transplant Historic Sites Registrar [phone] Telephone Encounter - Krys Garcia RN - 05/04/2021 8:09 AM CDT ISSUE: Falling hemoglobin. documented in this encounter Plan of Treatment Not on filedocumented as of this encounter Visit Diagnoses Not on filedocumented in this encounter Care Teams Condenser Winder Relationship Specialty Start Date End Date Momo Forbes PCP - General Family Practice 01/02/14 [facility] [address] [place] [address] Joseph Quintana, Assigned Nephrology 03/29/[address] [place] [address] 1932 [place], [place] [address] documented as of this encounter
--- OUTSIDE RECORDS SUMMARY | 2022-07-10 13:59 | XMS_ITS | Encounter Summary ---
:1950 Author Organization [place] Address [address] [place] [address] Care Team Providers Name Role Phone Momo Forbes Primary Care Provider Joseph Quintana MD Unavailable Encounter Details Date Type Department Care Team Description 07/08/2020 External Order [facility] Outside, Provider Results Transplant Clinic [address] [place] [address] Social History Tobacco Use Types [...] 9:23 AM R esults for this DIFFERENTIAL BRAN MIXER procedure are i n the results section. TACROLIMUS BY TANDEM Routine 07/08/2020 9:23 AM R esults for this MASS SPECTROMETRY BRAN MIXER procedure are in the results section. PROTEIN RANDOM URINE Routine 07/08/2020 9:23 AM R esults for this BRAN MIXER procedure are i n the results section. HEMOGLOBIN A1C Routine 07/08/2020 9:23 AM Results for this BRAN MIXER procedure are i n the results section. HEMOGLOBIN A1C Routine 07/08/2020 9:23 AM Results for this BRAN MIXER procedure are i n the results section. BASIC METABOLIC PANEL Routine 07/08/2020 9:23 AM Results for this BRAN MIXER procedure are i n the results section. documented in this encounter Results (ABNORMAL) Protein random urine with Creat Ratio (07/08/2020 9:23 AM BRAN MIXER) Analysis Performed At [facility] Time Signature Protein Random 73 mg/dL LABDE SCAN Urine (External) Creatinine 65 mg/dL LABDE SCAN Urine mg/dL (External) Protein Total 1.12 (H) 0 - 0.19 LABDE SCAN Ur per Cr (External) Specimen (Source) Anatomical Collection Method Collection Time Re ceived Time Location / / Volume Laterality Urine specimen 07/08/2020 9:23 AM (specimen) BRAN MIXER Narrative BREEZE PFT - 07/11/2020 11:13 AM BRAN MIXER Verified by Praful Huff on 2019. Patient Reported LAB - URINE ORDERABLES Performing Organization Address City/State/ZIP Code Phon e Number BREEZE PFT LABDE SCAN (ABNORMAL) Hemoglobin A1c (07/08/2020 9:23 AM BRAN MIXER) Analysis Performed At [facility] Time Signature Hemoglobin A1C 12.3 (H) 0 - 5.6 % LABDE SCAN (External) Specimen (Source) Anatomical Collection Method Collection Time Re ceived Time Location / / Volume Laterality Blood specimen 07/08/2020 9:23 AM (specimen) BRAN MIXER Narrative BREEZE PFT - 07/11/2020 11:13 AM BRAN MIXER Verified by Praful Huff on 2019. Patient Reported LAB - BLOOD ORDERABLES Performing Organization Address City/[facility]/ZIP Code Phon e Number BREEZE PFT LABDE SCAN Tacrolimus level (07/08/2020 9:23 AM BRAN MIXER) P athologist Signature Tacrolimus(FK- 2.2 See scanned LABDE SCAN 506) report ng/mL (External) Specimen (Source) Anatomical Collection Method Collection Time Re ceived Time Location / / Volume Laterality Blood specimen 07/08/2020 9:23 AM (specimen) BRAN MIXER Narrative BREEZE PFT - 07/11/2020 11:13 AM BRAN MIXER Verified by Praful Huff on 2019. Patient Reported LAB - BLOOD ORDERABLES Performing Organization Address City/State/ZIP Code Phon e Number BREEZE PFT LABDE SCAN (ABNORMAL) Hemoglobin A1c (07/08/2020 9:23 AM BRAN MIXER) Analysis Performed At [facility] logist Time Signature Hemoglobin A1C 12.3 (H) 0 - 5.6 % LABDE SCAN (External) Specimen (Source) Anatomical Collection Method Collection Time Re ceived Time Location / / Volume Laterality Blood specimen 07/08/2020 9:23 AM (specimen) BRAN MIXER Narrative MARLENEE PFT - 07/09/2020 11:03 AM BRAN MIXER Verified by Andrade Barajas on 07/09/2020. Patient Reported LAB - BLOOD ORDERABLES Performing Organization Address City/State/ZIP Code Phon e Number BREEZE PFT LABDE SCAN (ABNORMAL) Basic metabolic panel (07/08/2020 9:23 AM BRAN MIXER) Analysis Performed At [facility] logist Time Signature Calcium 10.1 8.4 - [...] Laterality Blood specimen 07/08/2020 9:23 AM (specimen) BRAN MIXER Narrative JESSICA PFT - 07/09/2020 11:02 AM BRAN MIXER Verified by Andrade Barajas on 07/09/2020. Patient Reported LAB - BLOOD ORDERABLES Performing Organization Address City/State/ZIP Code Phon e Number BREEZE PFT LABDE SCAN (ABNORMAL) CBC with platelets differential (07/08/2020 9:23 AM BRAN MIXER) [facility] gist Method Time Signature WBC Count [...] Laterality Blood specimen 07/08/2020 9:23 AM (specimen) BRAN MIXER Narrative JESSICA PFT - 07/09/2020 10:52 AM BRAN MIXER Verified by Praful Huff on 2019. Patient Reported LAB - BLOOD ORDERABLES Performing Organization Address City/State/ZIP Code Phon e Number BREEZE PFT LABDE SCAN documented in this encounter Visit Diagnoses Not on filedocumented in this encounter Care Teams Pants Busheler Relationship Specialty Start Date End Date Momo Forbes PCP - General Family Practice 01/02/14 [place] [id number] Joseph Quintana, Assigned Nephrology 03/29/21 MD Provider [address] [place] [address] documented as of this encounter
--- OUTSIDE RECORDS SUMMARY | 2022-07-10 13:59 | XMS_ITS | Encounter Summary ---
:1950 Author Organization [place] Address [address] [place] [address] Care Team Providers Name Role Phone Momo Forbes Primary Care Provider Joseph Quintana MD Unavailable Encounter Details Date Type Department Care Team Description 05/26/2020 External Order [facility] Outside, Provider Results Transplant Clinic [address] [place] [address] Social History Tobacco Use [...] filedocumented in this encounter Care Teams Central Melt Specialist Relationship Specialty Start Date End Date Momo Forbes PCP - General Family Practice 01/02/14 [facility] [address] [place] [address] Joseph Quintana, Assigned Nephrology 03/29/21 MD Provider 7 [facility] 353 [facility] [address] [place], [place] [address] documented as of this encounter
--- OUTSIDE RECORDS SUMMARY | 2022-07-10 13:59 | XMS_ITS | Encounter Summary ---
:1950 Author Organization [place] Address [facility] [place] [address] Care Team Providers Name Role Phone Momo Forbes Primary Care Provider Joseph Quintana MD Unavailable Encounter Details Date Type Department Care Team Description 08/25/2021 Orders Only [facility] Jose, Kidney tr ansplanted; Transplant Clinic BOGDAN Marcano -donor kidney transp lant recipient [address] [place] [address] Social History Tobacco Use Types [...] transplant documented in this encounter Care Teams Drug Discovery Informatics Specialist Relationship Specialty Start Date End Date Momo Forbes PCP - General Family Practice 01/02/14 [facility] [address] [place] [address] Joseph Quintana, Assigned Nephrology 03/29/21 Provider 717 [facility] 353 [facility] [address] [place], [place] [id number] documented as of this encounter
--- OUTSIDE RECORDS SUMMARY | 2022-07-10 13:59 | XMS_ITS | Encounter Summary ---
:1950 Author Organization [place] Address [address] [place] [address] Care Team Providers Name Role Phone Momo Forbes Primary Care Provider Joseph Quintana MD Unavailable Encounter Details Date Type Department Care Team Description 01/07/2021 External Order [facility] Outside, Provider Results Transplant Clinic [address] [place] [address] Social History Tobacco Use Types Packs/Day [...] on filedocumented in this encounter Care Teams Room Service Waiter/Waitress Relationship Specialty Start Date End Date Momo Forbes PCP - General Family Practice 01/02/14 [facility] [address] [place] [address] Joseph Quintana, Assigned Nephrology 03/29/21 MD Provider 717 [facility] 353 [facility] [address] [place] [address] documented as of this encounter
--- OUTSIDE RECORDS SUMMARY | 2022-07-10 13:59 | XMS_ITS | Encounter Summary ---
:1950 Author Organization [place] Address [facility] [place] [address] Care Team Providers Name Role Phone Momo [...] on filedocumented in this encounter Care Teams Digester Operator Helper Relationship Specialty Start Date End Date Momo Forbes PCP - General Family Practice 01/02/14 [facility] [address] [place] [address] documented as of this encounter
--- OUTSIDE RECORDS SUMMARY | 2022-07-10 13:59 | XMS_ITS | Encounter Summary ---
:1950 Author Organization [place] Address [address] [place] [address] Care Team Providers Name Role Phone Momo Forbes Primary Care Provider Joseph Quintana MD Unavailable Encounter Details Date Type Department Care Team Description 04/30/2021 External Order [facility] Outside, Provide r Results Molecular Diagnostic s [address] [place] [phone] Social History Tobacco Use Types Packs/Day Years [...] Platelets & Differential (04/30/2021 11:20 AM CDT) [facility] gist Method Time Signature WBC Count 4.82 [...] filedocumented in this encounter Care Teams Supervisor Self Service Store Relationship Specialty Start Date End Date Momo Forbes PCP - General Family Practice 01/02/14 [facility] [address] [place] [address] Joseph Quintana, Assigned Nephrology 03/29/21 MD Provider [address] [place] [address] [address] [place] [address] documented as of this encounter
--- OUTSIDE RECORDS SUMMARY | 2022-07-10 13:59 | XMS_ITS | Encounter Summary ---
:1950 Author Organization [place] Address [facility] [place] [address] Care Team Providers Name Role Phone Forbes, Ton Primary Care Provider Reason for Visit Reason Onset Date Comments Transplant Immunosuppression Management 08/11/2020 Encounter Details Date Type Department Care Team Description [facility] nsplant Transplant Clinic BOGDAN Nam Immunosuppression [address] [place] [address] [place] [address] Social History Tobacco [...] Barbie Ugalde RN - 08/11/2020 4:16 PM MERCHANDISE BUYER ISSUE: Tacrolimus IR level 11.7 on 08/08/20, [...] Organ Transplant, Post Kidney and Pancreas Transplant Intensive Care Anaesthetist [phone] OUTCOME: Spoke with patient, they confirm accurate trough level and current dose 2 mg BID. Patient confirmed dose change to 1.5 mg BID and to repeat labs in 1 weeks. Orders sent to preferred pharmacy for dose change and lab for repeat labs. Patient voiced understanding of plan. 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
--- OUTSIDE RECORDS SUMMARY | 2022-07-10 13:59 | XMS_ITS | Encounter Summary ---
:1950 Author Organization [place] Address [facility] [place] [address] Care Team Providers Name Role Phone Momo Forbes Primary Care Provider Joseph Quintana MD Unavailable Reason for Visit Reason Onset Date Comments Transplant 09/22/2021 Encounter Details Date Type Department Care Team Description [facility] BOGDAN Nam [address] [place] [phone] Social History Tobacco Use Types Packs/Day Years Used Date Smoking Tobacco: Former Cigars Quit : 08/22/2006 Smokeless Tobacco: Never Alcohol Use Standard Drinks/Week Comments Yes 0 (1 standard drink = 0.6 oz pure alcoho l) occasional drink. Sex Assigned at Date Recorded Not on file documented as of this encounter Miscellaneous Notes Telephone Encounter - Barbie Ugalde RN - 09/22/2021 2:16 PM BLAST FURNACE OPERATOR Post discharge from [facility] 09/20/21; to rehab/TCU due to wound on stump; can't wear prosthetic until healed. UTI on Cephelaxin 500 mg TID. Katharine TCU Unit Phone [facility] station [phone] Phone BOGDAN Baker [phone] Discussed Prograf dose was 1.5 mg at hospital. Should be 1 mg AM/0.5 mg PM. Repeat level with [facility] 09/24/21. Verbal orders taken by admissions. Babrie Crisostomo, RN, BSN Solid Organ Transplant, Post Kidney and Pancreas Transplant Lap Cutter [phone] T FURNACE OPERATOR Telephone Encounter - MichaelAzael Deann - 09/22/2021 12:09 PM CST Katharine under the new name [facility] TCU has questions regarding medicationsand lab. T FURNACE OPERATOR documented in this encounter Plan of Treatment Not on filedocumented as of this encounter Visit Diagnoses Not on filedocumented in this encounter Care Teams Enrichment Specialist Relationship Specialty Start Date End Date Momo Forbes PCP - General Family Practice 01/02/14 [facility] [address] [place] [address] Joseph Quintana, Assigned Nephrology 03/29/21 MD Provider [address] [place] [address] [address] [place] [address] documented as of this encounter
--- OUTSIDE RECORDS SUMMARY | 2022-07-10 13:59 | XMS_ITS | Encounter Summary ---
:1950 Author Organization [place] Address [address] [place] [address] Care Team Providers Name Role Phone Momo Forbes Primary Care Provider Reason for Visit Reason Onset Date Comments Transplant 10/23/2020 Encounter Details Date Type Department Care Team Description 10/23/2020 Telephone [facility] Barbie Ugalde nsplant Transplant Clinic BOGDAN Nam [address] [place] [phone] Social History Tobacco Use Types [...] Barbie Ugalde RN - 10/23/2020 1:10 PM PROFILING MACHINE SET UP OPERATOR Latrell reports his labs were done yesterday morning at [facility]. Last night ended upat ER at [facility]. Hospital printed out copy of labs and he is worried about creatinine. Latrell states he had R foot infection that needed to be cleaned out; Had surgery last day of August onfoot at [place]. Was hospitalized 10 days before going to [facility] for recovery. Last night his blood sugar was dropping low into 70s and [facility] staff thought his BP was jumping around to much. This morning is BP 130/76, but last night 170s. Explained to Latrell that it has been a year since lastnephrology appointment and he needs to be seen for transplant follow up. He agreed but did not want to schedule at this time but will call back to schedule. Call placed to [facility] lab to fax results. Per Lab need to speak with information management department to release records or go thru [facility] to have orders faxed. Call then [...] and repeating post-transplant labs in 1-2 weeks. ILING MACHINE SET UP OPERATOR Telephone Encounter - Tasia Mack - 10/23/2020 10:03 AM CST Patient Call: Transplant Lab/Orders Route to COMPENSATION EXPERT Post Transplant Days: 2455 When patient is less than 60 days post-transplant, route high priority Reason for Call: Discuss lab results; which results? creatine level Callback needed? Yes Return Call Needed Same as documented in contacts section When to return call?: Greater than one day: Route standard priority ILING MACHINE SET UP OPERATOR documented in this encounter Plan of Treatment Not on filedocumented as of this encounter Visit Diagnoses Not on filedocumented in this encounter Care Teams Adjunct Teacher Relationship Specialty Start Date End Date Momo Forbes PCP - General Family Practice 01/02/14 [facility] [address] [place] [address] documented as of this encounter
--- OUTSIDE RECORDS SUMMARY | 2022-07-10 13:59 | XMS_ITS | Encounter Summary ---
:1950 Author Organization [place] Address [address] [place] [address] Care Team Providers Name Role Phone Momo Forbes Primary Care Provider Joseph Quintana MD Unavailable Encounter Details Date Type Department Care Team Description 08/08/2020 External Order [facility] Outside, Provider Results Transplant Clinic [address] [place] [address] Social History Tobacco Use Types [...] 08/08/2020 11:43 Results f or this AM PUBLIC SERVICE DIRECTOR procedure are i n the results section. TACROLIMUS BY TANDEM Routine 08/08/2020 11:34 Res ults for this MASS SPECTROMETRY AM PUBLIC SERVICE DIRECTOR procedure are in the results section. LIPID PROFILE Routine 08/08/2020 11:34 Results fo r this AM PUBLIC SERVICE DIRECTOR procedure are i n the results section. ALT Routine 08/08/2020 11:34 Results for this AM PUBLIC SERVICE DIRECTOR procedure are i n the results section. BASIC METABOLIC PANEL Routine 08/08/2020 11:34 Re sults for this AM PUBLIC SERVICE DIRECTOR procedure are i n the results section. documented in this encounter Results (ABNORMAL) Hemoglobin A1c (08/08/2020 11:43 AM PUBLIC SERVICE DIRECTOR) Analysis Performed At [facility] Time Signature Hemoglobin A1C 10.2 (H) <=6.9 % LABDE SCAN (External) Specimen (Source) Anatomical Collection Method Collection Time Re ceived Time Location / / Volume Laterality Blood specimen 08/08/2020 11:43 (specimen) AM PUBLIC SERVICE DIRECTOR Narrative BREEZE PFT - 08/11/2020 1:28 PM PUBLIC SERVICE DIRECTOR Verified by Praful Huff on 2019. Patient Reported LAB - BLOOD ORDERABLES Performing Organization Address City/State/ZIP Code Phon e Number BREEZE PFT LABDE SCAN Tacrolimus level (08/08/2020 11:34 AM PUBLIC SERVICE DIRECTOR) P athologist Signature Tacrolimus(FK-5 11.7 See scan LABDE SCAN 06) (External) ng/mL Specimen (Source) Anatomical Collection Method Collection Time Re ceived Time Location / / Volume Laterality Blood specimen 08/08/2020 11:34 (specimen) AM PUBLIC SERVICE DIRECTOR Narrative BREEZE PFT - 08/11/2020 1:28 PM PUBLIC SERVICE DIRECTOR Verified by Praful Huff on 2019. Patient Reported LAB - BLOOD ORDERABLES Performing Organization Address City/State/ZIP Code Phon e Number BREEZE PFT LABDE SCAN (ABNORMAL) Lipid Profile (08/08/2020 11:34 AM PUBLIC SERVICE DIRECTOR) Patholo gist Method Time Signature Cholesterol 79 (L) 90 - 200 LABDE SCAN (External) MG/DL Triglycerides 86 40 - 197 LABDE SCAN (External) MG/DL LDL-Cholesterol 29 <100 mg/dL LABDE SCAN (External) HDL Cholesterol 33 (L) >=40 mg/dL LABDE SCAN (External) Specimen (Source) Anatomical Collection Method Collection Time Re ceived Time Location / / Volume Laterality Blood specimen 08/08/2020 11:34 (specimen) AM PUBLIC SERVICE DIRECTOR Narrative BREEZE PFT - 08/11/2020 1:28 PM PUBLIC SERVICE DIRECTOR Verified by Praful Huff on 2019. Patient Reported LAB - BLOOD ORDERABLES Performing Organization Address City/State/ZIP Code Phon e Number BREEZE PFT LABDE SCAN ALT (08/08/2020 11:34 AM PUBLIC SERVICE DIRECTOR) P athologist Signature ALT (External) 8 4 - 50 U/L LABDE SCAN Specimen (Source) Anatomical Collection Method Collection Time Re ceived Time Location / / Volume Laterality Blood specimen 08/08/2020 11:34 (specimen) AM PUBLIC SERVICE DIRECTOR Narrative BREEZE PFT - 08/11/2020 1:28 PM PUBLIC SERVICE DIRECTOR Verified by Praful Huff on 2019. Patient Reported LAB - BLOOD ORDERABLES Performing Organization Address City/State/ZIP Code Phon e Number BREEZE PFT LABDE SCAN (ABNORMAL) Basic metabolic panel (08/08/2020 11:34 AM PUBLIC SERVICE DIRECTOR) P athologist Signature Glucose 119 (H) 60 [...] Laterality Blood specimen 08/08/2020 11:34 (specimen) AM PUBLIC SERVICE DIRECTOR Narrative BREEZE PFT - 08/11/2020 1:28 PM PUBLIC SERVICE DIRECTOR Verified by Praful Huff on 2019. Patient Reported LAB - BLOOD ORDERABLES Performing Organization Address City/State/ZIP Code Phon e Number BREEZE PFT LABDE SCAN documented in this encounter Visit Diagnoses Not on filedocumented in this encounter Care Teams Chucking Machine Set Up Operator Relationship Specialty Start Date End Date Momo Forbes PCP - General Family Practice 01/02/14 [facility] [address] [place] [address] Joseph Quintana, Assigned Nephrology 03/29/21 MD Provider 7 [facility] 353 [facility] [address] [place], [place] [address] documented as of this encounter
--- OUTSIDE RECORDS SUMMARY | 2022-07-10 13:59 | XMS_ITS | Encounter Summary ---
:1950 Author Organization [place] Address [address] [place] [address]. [place] [address] Care Team Providers Name Role Phone Momo Forbes Primary Care Provider Joseph Quintana MD Unavailable Reason for Visit Reason Onset Date Comments Medication Refill Refill Request 08/20/2021 Encounter Details Date Type Department Care Team Description 08/20/2021 Refill [facility] Joseph Quintana on Refill; Nephrology Clinic MD Herminio Refill Request [address] 909 [facility] 353 [facility] [address] [place], [place] [address] [phone] Social History Tobacco Use Types Packs/Day Years [...] in this encounter Care Teams Manager Of Care Relationship Specialty Start Date End Date Momo Forbes PCP - General Family Practice 01/02/14 [facility] [address] [place] [address] Joseph Quintana, Assigned Nephrology 03/29/21 MD Provider 717 [facility] 353 [facility] [address] [place] [address] documented as of this encounter
--- OUTSIDE RECORDS SUMMARY | 2022-07-10 14:00 | XMS_ITS | Encounter Summary ---
:1950 Author Organization [place] Address [address] [place] [address] Care Team Providers Name Role Phone Momo Forbes Primary Care Provider Reason for Visit Reason Onset Date Comments Kidney Transplant 05/20/2019 Encounter Details Date Type Department Care Team Description 05/20/2019 Telephone [facility] Estefania Nguyen Transplant Transplant Clinic Amanda Fletcher RN [address] [place] [phone] Social History Tobacco Use Types Packs/Day [...] not charted as 12 hour trough. ?? Plan/AGRICULTURAL TECHNICAL OFFICER task: ?? Please confirm timing of lab draw. If this was not a 12 hour level, please repeat labs in May and ensure 12 hour trough level with lab draw. Enter lab orders if needed Telephone Encounter - Amanda Nguyen RN - 05/20/2019 5:38 PM CDT Issue: Tac 4.6 - however this is not charted as 12 hour trough. Plan/AGRICULTURAL TECHNICAL OFFICER task: Please confirm timing of lab draw. If this was not a 12 hour level, please repeat labs in May and ensure 12 hour trough level with lab draw. Enter lab orders if needed. documented in this encounter Plan of Treatment Not on filedocumented as of this encounter Visit Diagnoses Not on filedocumented in this encounter Care Teams Mail Inserter Relationship Specialty Start Date End Date Momo Forbes PCP - General Family Practice 01/02/14 [facility] [address] [place] [address] documented as of this encounter
--- OUTSIDE RECORDS SUMMARY | 2022-07-10 14:00 | XMS_ITS | Encounter Summary ---
:1950 Author Organization [place] Address [address] [place] [address] Care Team Providers Name Role Phone Momo Forbes Primary Care Provider Joseph Quintana MD Unavailable Encounter Details Date Type Department Care Team Description 05/26/2020 External Order [facility] Outside, Provider Results Transplant Clinic [address] [place] [address] Social History Tobacco Use Types [...] with platelets differential (05/26/2020 10:25 AM CDT) [facility] gist [...] filedocumented in this encounter Care Teams Manager Commodities Relationship Specialty Start Date End Date Momo Forbes PCP - General Family Practice 01/02/14 [facility] [address] [place] [address] Joseph Quintana, Assigned Nephrology 03/29/21 MD Provider [address] [place] [address] 353 [facility] [address] [place], [place] [address] documented as of this encounter
--- OUTSIDE RECORDS SUMMARY | 2022-07-10 14:00 | XMS_ITS | Encounter Summary ---
:1950 Author Organization [place] Address [facility] [place] [address] Care Team Providers Name Role Phone Momo [...] on filedocumented in this encounter Care Teams Quiller Runner Relationship Specialty Start Date End Date Momo Forbes PCP - General Family Practice 01/02/14 [facility] [address] [place] [address] documented as of this encounter
--- OUTSIDE RECORDS SUMMARY | 2022-07-10 14:00 | XMS_ITS | Encounter Summary ---
:1950 Author Organization [place] Address [facility] access hospital0 [facility] [place] [address] Care Team Providers Name Role Phone Momo [...] General Family Practice 01/02/14 [facility] [address] [place] [address] documented as of this encounter
--- OUTSIDE RECORDS SUMMARY | 2022-07-10 14:00 | XMS_ITS | Encounter Summary ---
:1950 Author Organization [place] Address [facility] [place] [address] Care Team Providers Name Role Phone Momo [...] on filedocumented in this encounter Care Teams Liquor Runner Relationship Specialty Start Date End Date Momo Forbes PCP - General Family Practice 01/02/14 [facility] [address] [place] [address] documented as of this encounter
--- OUTSIDE RECORDS SUMMARY | 2022-07-10 14:00 | XMS_ITS | Encounter Summary ---
:1950 Author Organization [place] Address [facility] [place] [address] Care Team Providers Name Role Phone Momo Forbes Primary Care Provider Reason for Visit Reason Onset Date Comments Refill Request 01/17/2019 Encounter Details Date Type Department Care Team Description 01/17/2019 Refill [facility] Joseph Quintana MD Refill Request Transplant Clinic [address] [place] [address] [address] [place], [place] [phone] [place], [place] [phone] (Wo rk) Social History Tobacco Use Types [...] documented in this encounter Care Teams Air And Water Filler Relationship Specialty Start Date End Date Momo Forbes PCP - General Family Practice 01/02/14 [facility] [address] [place] [address] documented as of this encounter
--- OUTSIDE RECORDS SUMMARY | 2022-07-10 14:00 | XMS_ITS | Encounter Summary ---
:1950 Author Organization [place] Address [address] [facility] [address] Care Team Providers Name Role Phone Momo Forbes Primary Care Provider Reason for Visit Reason Onset Date Comments Refill Request 03/18/2020 Mycophenolate and Pr ograf 1mg Encounter Details Date Type Department Care Team Description 03/18/2020 Refill M [facility] Mariano, Joseph Refill R equest Nephrology Clinic MD Herminio (Mycophenolate and [place] [address] [place] [address] SE Prograf 1mg) 909 [facility] RANJAN 353 [facility] [address] [place] [address] [phone] Social History Tobacco Use Types Packs/Day Years [...] documented in this encounter Care Teams Golf Club Facer Relationship Specialty Start Date End Date Momo Forbes PCP - General Family Practice 01/02/14 [facility] [address] [place] [address] documented as of this encounter
--- OUTSIDE RECORDS SUMMARY | 2022-07-10 14:00 | XMS_ITS | Encounter Summary ---
:1950 Author Organization [place] Address [facility] [place] [address] Care Team Providers Name Role Phone Momo Forbes Primary Care Provider Encounter Details Date Type Department Care Team Description 10/09/2019 Orders Only [facility] Transplant Mati Recinos RN Clinic [address] [place], [place] [phone] Social History Tobacco Use Types Packs/Day [...] 3:48 PM CST Orders updated. Faxed to [facility] lab: [facility] T [phone] F [phone] ICAL TRIAL HEAD documented in this encounter Plan of Treatment Not on filedocumented as of this encounter Visit Diagnoses Not on filedocumented in this encounter Care Teams Floor Polisher Relationship Specialty Start Date End Date Momo Forbes PCP - General Family Practice 01/02/14 [facility] [address] [place] [address] documented as of this encounter
--- OUTSIDE RECORDS SUMMARY | 2022-07-10 14:00 | XMS_ITS | Encounter Summary ---
:1950 Author Organization [place] Address [address] [place] [address] Care Team Providers Name Role Phone Forbes, Ton Primary Care Provider Reason for Visit Reason Comments Clinic Care Coordination - Follow-up Encounter Details Date Type Department Care Team Description 11/16/2019 Care Coordination [facility] Sejal Rodriguez Nephrology Clinic BOGDAN Llanos Coordination - [place] [phone] Follow-up 9 [facility] (Work) [place] [address] Social History Tobacco Use Types [...] filedocumented in this encounter Care Teams Strip Cutter Relationship Specialty Start Date End Date Momo Forbes PCP - General Family Practice 01/02/14 [facility] [address] [place] [address] documented as of this encounter
--- OUTSIDE RECORDS SUMMARY | 2022-07-10 14:00 | XMS_ITS | Encounter Summary ---
:1950 Author Organization [place] Address [address] [place] [address]. [place] [address] Care Team Providers Name Role Phone Momo Forbes Primary Care Provider Encounter Details Date Type Department Care Team Description 09/25/2019 Medical Correspondence [facility] Scan, PATIENT BLOOD Health Info Mgmt Non-Provider GLUCOSE SIVAKUMAR LEMUS Srvcs [address] [place] [address] Social History Tobacco Use Types [...] filedocumented in this encounter Care Teams Ore Buyer Relationship Specialty Start Date End Date Momo Forbes PCP - General Family Practice 01/02/14 [facility] [address] [place] [address] documented as of this encounter
--- OUTSIDE RECORDS SUMMARY | 2022-07-10 14:00 | XMS_ITS | Encounter Summary ---
:1950 Author Organization [place] Address [address] [place] [address] Care Team Providers Name Role Phone Momo Forbes Primary Care Provider Reason for Visit Reason Comments RECHECK Post kid tx f/u Encounter Details Date Type Department Care Team Description 10/09/2019 Office Visit [facility] Shiva Presley MD [facility] [address] [facility] [address] [place] [address] Kidney transplanted (Primary Dx); Nephrology Clinic , Kidney/Pancreas Recipient Need for influenza vaccination; [place] HTN, kidney transplant relat ed; [address] Immunosupp ression (H); SE Skin cancer screening; [place], [place] Hypovitamino sis D [address] Social History [...] Comments Blood Pressure 169/76 10/09/2019 2:35 PM CANAL DRIVER Pulse 67 10/09/2019 2:35 PM CANAL DRIVER Temperature - - Respiratory Rate - - Oxygen Saturation 95% 10/09/2019 2:35 PM CANAL DRIVER Inhaled Oxygen Concentration - - Weight 132.5 kg (292 lb 1.6 oz) 10/09/2019 2:35 PM CANAL DRIVER Height - - Body Mass Index 39.62 10/10/2017 2:25 PM CANAL DRIVER documented in this encounter Progress Notes Shiva [...] being entered into the official medical record. L DRIVER documented in this encounter Nursing Notes Josseline Recinos RN - 10/09/2019 2:45 PM CST Diego Guthrie was seen today in clinic by this parts data writer. Medications, lab orders, lab frequency,and necessary follow up discussed with patient. Patient was provided with a copy of the current lab letter. Patient voiced understanding and agreement of education and plan. Josseline Recinos RN L DRIVER Jeanette Finley CMA - 10/09/2019 2:45 PM CST Chief Complaint Patient presents with ??? RECHECK Post kid tx f/u Blood pressure (!) 169/76, pulse 67, weight 132.5 kg (292 lb 1.6 oz), SpO2 95 %. Jeanette Finley CMA L DRIVER documented in this encounter Plan of [...] deficiency documented in this encounter Care Teams Control Engineer Relationship Specialty Start Date End Date Momo Forbes PCP - General Family Practice 01/02/14 [facility] [address] [place] [address] documented as of this encounter
--- OUTSIDE RECORDS SUMMARY | 2022-07-10 14:00 | XMS_ITS | Encounter Summary ---
:1950 Author Organization [place] Address [address]50 [facility] [place] [address] Care Team Providers Name Role Phone ForbesMomo santiago A Primary Care Provider Reason for Visit Reason Onset Date Comments Kidney Transplant 07/12/2019 Encounter Details Date Type Department Care Team Description 07/12/2019 Telephone [facility] Estefania Nguyen Transplant Transplant Clinic Amanda Fletcher RN [address] [place] [phone] Social History Tobacco Use Types Packs/Day [...] left with instruction listed below. Order placed NE ROOM OPERATOR Telephone Encounter - Amanda Nguyen RN - 07/12/2019 12:23 PM ENGINE ROOM OPERATOR Clinic appt 07/17 at 4:45 Plan: Called patient to remind him of appt date/time. Asked that he complete labs prior to appt. SREEKANTH task: Please send one time lab order to complete all tx labs within the next week. NE ROOM OPERATOR documented in this encounter Plan of Treatment Not on filedocumented as of this encounter Visit Diagnoses Not on filedocumented in this encounter Care Teams Pathologist Assistant Relationship Specialty Start Date End Date Momo Forbes PCP - General Family Practice 01/02/14 [facility] [address] [place] [address] documented as of this encounter
--- OUTSIDE RECORDS SUMMARY | 2022-07-10 14:00 | XMS_ITS | Encounter Summary ---
:1950 Author Organization [place] Address [address] [place] [address]. [place] [address] Care Team Providers Name Role Phone Momo Forbes Primary Care Provider Encounter Details Date Type Department Care Team Description 09/26/2019 Medical Correspondence [facility] [place] Scan, BLOOD GLUCOSE LOG Health Info Mgmt Non-Provider Srvcs [address] [place] [phone] Social History Tobacco Use Types Packs/Day [...] on filedocumented in this encounter Care Teams Groundman/Lineman Relationship Specialty Start Date End Date Momo Forbes PCP - General Family Practice 01/02/14 [facility] [address] [place] [address] documented as of this encounter
--- OUTSIDE RECORDS SUMMARY | 2022-07-10 14:00 | XMS_ITS | Encounter Summary ---
:1950 Author Organization [place] Address [address] [place] [address] Care Team Providers Name Role Phone Momo Forbes Primary Care Provider Joseph Quintana MD Unavailable Encounter Details Date Type Department Care Team Description 05/16/2019 External Order [facility] Nurse, Santi Txc Afterca re following organ transplant; Results Transplant Clinic Kidney replaced by transplan t; [address] [place] [address] Encounter for long-term curr [place] [address] Social History Tobacco Use Types [...] procedure are in Kidney replaced by the [facility] ts transplant section. Encounter for long-term current use of medication PROTEIN RANDOM URINE Routine 05/16/2019 3:36 PM Aftercare foll owing Results for this CDT organ transplant procedure are in Kidney replaced by the [facility] ts transplant section. Encounter for [...] edication documented in this encounter Care Teams Dipper And Drier Relationship Specialty Start Date End Date Momo Forbes PCP - General Family Practice 01/02/14 [facility] [address] [place] [address] Joseph Quintana, Assigned Nephrology 03/29/21 MD Provider 7 [facility] 353 [facility] [address] [place] [address] documented as of this encounter
--- OUTSIDE RECORDS SUMMARY | 2022-07-10 14:00 | XMS_ITS | Encounter Summary ---
:1950 Author Organization [place] Address [address] [place] [address]. [place] [address] Care Team Providers Name Role Phone Momo Forbes Primary Care Provider Reason for Visit Reason Onset Date Comments Refill Request 02/28/2019 Encounter Details Date Type Department Care Team Description 02/28/2019 Refill [facility] Shiva Presley MD Refill Request Nephrology Clinic [facility] [place] [phone] Social History Tobacco Use Types Packs/Day Years [...] disease documented in this encounter Care Teams Coffee Urn Attendant Relationship Specialty Start Date End Date Momo Forbes PCP - General Family Practice 01/02/14 [facility] [address] [place] [address] documented as of this encounter
--- OUTSIDE RECORDS SUMMARY | 2022-07-10 14:00 | XMS_ITS | Encounter Summary ---
:1950 Author Organization [place] Address [facility]0 [facility] [place] [address] Care Team Providers Name Role Phone Momo Forbes Primary Care Provider Reason for Visit Reason Onset Date Comments Refill Request 05/07/2020 Mycophenplate and Pr ograf Encounter Details Date Type Department Care Team Description 05/07/2020 Refill [facility] [place] Joseph Quintana Refill R equest Nephrology Clinic MD Herminio (Mycophenplate and [address] Prograf) [address] [place] [address] [phone] Social History Tobacco Use Types Packs/Day Years [...] documented in this encounter Care Teams Wireless Sales Consultant Relationship Specialty Start Date End Date Momo Forbes PCP - General Family Practice 01/02/14 [facility] [address] [place] [address] documented as of this encounter
--- OUTSIDE RECORDS SUMMARY | 2022-07-10 14:00 | XMS_ITS | Encounter Summary ---
:1950 Author Organization [place] Address [facility]0 [facility] [place] [address] Care Team Providers Name Role Phone Momo Forbes Primary Care Provider Reason for Visit Reason Onset Date Comments Refill Request 12/22/2018 prograf, mycophenola te (PT IS OUT OF MEDS) Encounter Details Date Type Department Care Team Description 12/22/2018 Refill M [facility] Joseph Quintana Refsid R alenest (prograf, Transplant Clinic MD Herminio mycophenolate (PT IS OUT 909 [facility] SE 717 [facility] SE OF MEDS)) [facility] 353 [facility] [phone] [place], [place] [phone] ( rk) Social History Tobacco Use Types [...] transplant documented in this encounter Care Teams Construction Rigger Relationship Specialty Start Date End Date Momo Forbes PCP - General Family Practice 01/02/14 [facility] [address] [place] [address] documented as of this encounter
--- OUTSIDE RECORDS SUMMARY | 2022-07-10 14:00 | XMS_ITS | Encounter Summary ---
:1950 Author Organization [place] Address [address] [place] [address] Care Team Providers Name Role Phone Momo Forbes Primary Care Provider Reason for Visit Reason Onset Date Comments Transplant Lab 05/16/2019 Encounter Details Date Type Department Care Team Description 05/16/2019 Telephone [facility] Sudhir Fields Trans plant Lab Transplant Clinic Amanda Fletcher RN [address] [place] [address] 5-4800 Social History Tobacco Use Types Packs/Day [...] CDT Provider Call: Transplant Lab/Orders Route to SPIKE MACHINE HEATER Post Transplant Days: 1928 When patient is less than 60 days post-transplant, route high priority Reason for Call: updated lab order faxed Liver patients reporting abnormal lab results: Route to RN and Page Document lab facility information when provider is calling about annual lab orders. Delete facility wildcards when not needed. Facility Name: [facility] Facility Location: [place], [place] Outside Facility Callback needed? If needed documented in this encounter Plan of Treatment Not on filedocumented as of this encounter Visit Diagnoses Diagnosis Kidney replaced by transplant - Primary Aftercare following organ transplant Encounter for long-term current use of m edication documented in this encounter Care Teams Veneer Joiner Relationship Specialty Start Date End Date Momo Forbes PCP - General Family Practice 01/02/14 [facility] [address] [place] [address] documented as of this encounter
--- OUTSIDE RECORDS SUMMARY | 2022-07-10 14:00 | XMS_ITS | Encounter Summary ---
:1950 Author Organization [place] Address [address] [place] [address] Care Team Providers Name Role Phone Forbes, Ton Primary Care Provider Reason for Visit Reason Onset Date Comments Refill Request 10/25/2018 Encounter Details Date Type Department Care Team Description 10/25/2018 Refill [facility] Joseph Quintana MD Refill Request Transplant Clinic [address] [place] [address] 1932 [place], [place] [phone] [place] [address] (Wo rk) Social History Tobacco [...] Marianne Urias RN - 10/26/2018 9:04 AM WOOD HACKER ISSUE: Refill request for MMF 03/2019 appt [...] to call if further questions or concerns. HACKER documented in this encounter Plan of Treatment Not on filedocumented as of this encounter Visit Diagnoses Diagnosis Kidney transplanted Kidney replaced by transplant documented in this encounter Care Teams Shactor Relationship Specialty Start Date End Date Momo Forbes PCP - General [facility] Practice 01/02/14 [facility] [address] [place] [address] documented as of this encounter
--- OUTSIDE RECORDS SUMMARY | 2022-07-10 14:00 | XMS_ITS | Encounter Summary ---
:1950 Author Organization [place] Address [facility] [place] [address] Care Team Providers Name Role Phone Momo Forbes Primary Care Provider Reason for Visit Reason Onset Date Comments Refill Request 02/04/2020 prograf, mycophenola te Encounter Details Date Type Department Care Team Description 02/04/2020 Refill [facility] Spong, Joseph Refill R equest Transplant Clinic MD Herminio (prograf, 909 [facility] SE 717 [facility] mycophenolate) [facility] 353 [facility] 244[address] [phone] [place] [address] (Wo rk) Social History Tobacco [...] documented in this encounter Care Teams Ground Service Equipment Mechanic Relationship Specialty Start Date End Date Momo Forbes PCP - General Family Practice 01/02/14 [facility] [address] [place] [address] documented as of this encounter
--- OUTSIDE RECORDS SUMMARY | 2022-07-10 14:00 | XMS_ITS | Encounter Summary ---
:1950 Author Organization [place] Address [address] [place] [address] Care Team Providers Name Role Phone Forbes, Ton Primary Care Provider Reason for Visit Reason Comments Clinic Care Coordination - Follow-up Encounter Details Date Type Department Care Team Description 10/25/2019 Care Coordination [facility] Sejal Rodriguez Nephrology Clinic BOGDAN Llanos Coordination - [place] [phone] Follow-up 9 [facility] (Work) [place] [address] Social History Tobacco Use Types [...] back (follow up BP). Romi Rodriguez RN REMENT SPECIALIST Romi Rodriguez RN - 10/25/2019 10:15 AM [...] further questions or concerns. Romi Rodriguez, RN REMENT SPECIALIST documented in this encounter Plan of Treatment Not on filedocumented as of this encounter Visit Diagnoses Not on filedocumented in this encounter Care Teams Risk Assessment Consultant Relationship Specialty Start Date End Date Momo Forbes PCP - General Family Practice 01/02/14 [facility] [address] [place] [address] documented as of this encounter
--- OUTSIDE RECORDS SUMMARY | 2022-07-10 14:00 | XMS_ITS | Encounter Summary ---
:1950 Author Organization [place] Address [facility] [place] [address] Care Team Providers Name Role Phone Momo [...] in this encounter Care Teams Electric Motor Tester Relationship Specialty Start Date End Date Momo Forbes PCP - General Family Practice 01/02/14 [facility] [address] [place] [address] documented as of this encounter
--- OUTSIDE RECORDS SUMMARY | 2022-07-10 14:00 | XMS_ITS | Encounter Summary ---
:1950 Author Organization [place] Address [address]50 [facility] [place] [address] Care Team Providers Name Role Phone Momo Forbes Primary Care Provider Reason for Visit Reason Onset Date Comments Transplant Pharmacy Medication Review 01/10/2019 Encounter Details Date Type Department Care Team Description 01/10/2019 Telephone [facility] Meghan Mccormack [facility] [address] [facility] [place] [address] PHARMACY [phone] [place] [phone] (Wo rk) Social History Tobacco Use Types [...] filedocumented in this encounter Care Teams Licensed Direct Entry Midwife Relationship Specialty Start Date End Date Momo Forbes PCP - General Family Practice 01/02/14 [facility] [address] [place] [address] documented as of this encounter
--- OUTSIDE RECORDS SUMMARY | 2022-07-10 14:00 | XMS_ITS | Encounter Summary ---
:1950 Author Organization [place] Address [address]50 [facility] [place] [address] Care Team Providers Name Role Phone Momo Forbes Primary Care Provider Reason for Visit Reason Onset Date Comments Transplant Lab 01/29/2020 overdue labs Encounter Details Date Type Department Care Team Description 01/29/2020 Telephone [facility] Barbie Ugalde Tra nsplant Lab Transplant Clinic BOGDAN Nam (overdue labs) [address] [place] [phone] Social History Tobacco Use Types Packs/Day [...] kit for blood work sent to [facility] as requested. Explained kits are no longer being used for drug levels but new orders could be sent to lab if needed. [facility] [phone] (Phone) [facility] has annual order on file sent September 2019 and can fax to their new [facility] location that opened 2 weeks ago. Patient seen provider in [facility] who meryl Hemoglobin A1C and BMP [...] filedocumented in this encounter Care Teams Building Insulation Installer Relationship Specialty Start Date End Date Momo Forbes PCP - General Family Practice 01/02/14 [facility] [address] [place] [address] documented as of this encounter
--- OUTSIDE RECORDS SUMMARY | 2022-07-10 14:00 | XMS_ITS | Encounter Summary ---
:1950 Author Organization [place] Address [address] [place] [address] Care Team Providers Name Role Phone Momo Forbes Primary Care Provider Encounter Details Date Type Department Care Team Description 05/16/2019 Orders Only [facility] Loy Morales, Aft ercare following organ transplant; [facility] Kidney replaced by transplant; Laboratory [address] [facility] Encounter for long-term curr ent use of medication [address] [place] [address] [phone] (Wo rk) Social History Tobacco Use Types [...] (ABNORMAL) Tacrolimus level (05/16/2019 3:43 PM CDT) [facility] Method Time Signature Tacrolimus Last 05/1605/18/2019 [facility] 1230AM 11:28 AM CDT [facility] Tacrolimus 4.6 (L) 5.0 - 05/18/2019 [facility] 15.0 ug/L 4:11 PM CDT [facility] Comment: Tacrolimus Reference Range Kidney [...] performa nce characteristics determined by the [facility], [...] e Number [facility] 500 [place], [place] [phone] [place] [address] documented in this encounter Visit Diagnoses Diagnosis Aftercare following organ transplant Kidney replaced by transplant Encounter for long-term current use of m edication documented in this encounter Care Teams Humane Officer Relationship Specialty Start Date End Date Momo Forbes PCP - General Family Practice 01/02/14 [facility] [address] [place] [address] documented as of this encounter
--- OUTSIDE RECORDS SUMMARY | 2022-07-10 14:01 | XMS_ITS | Encounter Summary ---
:1950 Author Organization [place] Address [address] [place] [address] Care Team Providers Name Role Phone Momo Forbes Primary Care Provider Reason for Visit Reason Comments RECHECK annual Follow up Kidney TX Encounter Details Date Type Department Care Team Description 10/17/2018 Office Visit [facility] Shiva Presley MD [facility] [address] [facility] [address] [place], [place] [phone] Type 2 diabetes mellitus with other spec ified complication, with long-term current use of insulin (H) (Primary Dx); Nephrology Clinic [facility] Kidney/Pancreas Recipient Kidney replaced by transplant; [place] [facility] following organ tr ansplant; [facility] Immunosupp ression (H); SE HTN, kidney transplant relat ed; [place], [place] Severe obesi ty in adult, BMI [...] Comments Blood Pressure 162/77 10/17/2018 1:54 PM MANAGER OF INTERNATIONAL Pulse 60 10/17/2018 1:54 PM MANAGER OF INTERNATIONAL Temperature 36.5 ??C (97.7 ??F) 10/17/2018 1:54 PM MANAGER OF INTERNATIONAL Respiratory Rate - - Oxygen Saturation 94% 10/17/2018 1:54 PM MANAGER OF INTERNATIONAL Inhaled Oxygen Concentration - - Weight 133.7 kg (294 lb 12.8 oz) 10/17/2018 1:54 PM MANAGER OF INTERNATIONAL Height - - Body Mass Index 39.98 10/10/2017 2:25 PM MANAGER OF INTERNATIONAL documented in this encounter Progress Notes Joseph [...] then 50%0. Also offered to refer to diamond die driller. # Mineral Bone Disorder: - Secondary renal [...] PREVIOUSLY REPORTED 1999 MPACID 1.39 MPAG 80.2 GER OF INTERNATIONAL documented in this encounter Nursing Notes Martina [...] kg (294 lb 12.8 oz). Martina Boyle GER OF INTERNATIONAL documented in this encounter Plan of Treatment [...] >40 documented in this encounter Care Teams Cop Examiner Relationship Specialty Start Date End Date Momo Forbes PCP - General Family Practice 01/02/14 [facility] [address] [place] [address] documented as of this encounter
--- OUTSIDE RECORDS SUMMARY | 2022-07-10 14:01 | XMS_ITS | Encounter Summary ---
:1950 Author Organization [place] Address [address] [place] [address] Care Team Providers Name Role Phone Momo Forbes Primary Care Provider Reason for Visit Reason Onset Date Comments Transplant Lab 09/06/2018 Encounter Details Date Type Department Care Team Description 09/06/2018 Telephone [facility] Transplant Adonay, Transplant Lab Clinic BOGDAN Lopes [address] [address] [phone] Social History Tobacco Use Types Packs/Day Years Used Date Smoking Tobacco: Former Cigars Quit : 08/22/2006 Smokeless Tobacco: Never Alcohol Use Standard Drinks/Week Comments Yes 0 (1 standard drink = 0.6 oz pure alcoho l) occasional drink. Sex Assigned at Date Recorded Not on file documented as of this encounter Miscellaneous Notes Telephone Encounter - Marianne Urias RN - 09/12/2018 11:58 AM WIRE COMMUNICATIONS ENGINEER Attempted to reach pt again regarding his labs, no answer. Left message for pt to return call. COMMUNICATIONS ENGINEER Telephone Encounter - Marianne Urias RN - 09/07/2018 1:30 PM WIRE COMMUNICATIONS ENGINEER Attempted to reach pt again regarding labs, no answer. Left message for pt to return call. COMMUNICATIONS ENGINEER Telephone Encounter - Marianne Urias RN - 09/06/2018 12:59 PM WIRE COMMUNICATIONS ENGINEER ISSUE: Creatinine 1.69, up from pt baseline [...] Left message for pt to return call. COMMUNICATIONS ENGINEER documented in this encounter Plan of Treatment Not on filedocumented as of this encounter Visit Diagnoses Not on filedocumented in this encounter Care Teams Application Processor Relationship Specialty Start Date End Date Momo Forbes PCP - General Family Practice 01/02/14 [facility] [address] [place] [address] documented as of this encounter
--- OUTSIDE RECORDS SUMMARY | 2022-07-10 14:01 | XMS_ITS | Encounter Summary ---
:1950 Author Organization [place] Address [address] [place] [address] Care Team Providers Name Role Phone Momo Forbes Primary Care Provider Encounter Details Date Type Department Care Team Description 05/31/2017 Orders Only [facility] Loy Morales, Kid olivia replaced by [facility] MD transplant Laboratory [address] [facility] 500 [facility] [address] [place] [id number] (Wo rk) Social History Tobacco Use Types [...] (ABNORMAL) Tacrolimus level (05/30/2017 1:01 PM CDT) [facility] Method Time Signature Tacrolimus Last 05/29/17 05/31/2017 [facility] Dose 1930 1:05 PM CDT [facility] Tacrolimus 3.0 (L) 5.0 - 05/31/2017 [facility] Level 15.0 ug/L 7:54 PM CDT [facility] Comment: Tacrolimus [...] its performa nce characteristics determined by the [facility] [...] e Number [facility] [address] [place] [address] [facility] documented in this encounter Visit Diagnoses Diagnosis Kidney replaced by transplant documented in this encounter Care Teams Blindstitch Machine Operator Relationship Specialty Start Date End Date Momo Forbes PCP - General Family Practice 01/02/14 [facility] [address] [place] [address] documented as of this encounter
--- OUTSIDE RECORDS SUMMARY | 2022-07-10 14:01 | XMS_ITS | Encounter Summary ---
:1950 Author Organization [place] Address [address] [place] [address] Care Team Providers Name Role Phone Momo Forbes Primary Care Provider Reason for Visit Reason Onset Date Comments Transplant 10/18/2018 post transplant sche duling Encounter Details Date Type Department Care Team Description 10/18/2018 Telephone [facility] Nazia Jacobson Transplant (post Transplant Clinic BOGDAN Hicksadult daycare coordinator scheduling) [address] [place] [phone] Social History Tobacco Use Types Packs/Day [...] another detailed message with weight managements number. [employer]OR B[employer] Telephone Encounter - Maribel Plunkett - 10/18/2018 9:32 AM CST I attempted to contact pt to give him the number for weight management, as they want to talk directly to the patient when scheduling initial appointment, and reached his VM. I LVM asking him to return my call. CTOR BANKING documented in this encounter Plan of Treatment Not on filedocumented as of this encounter Visit Diagnoses Not on filedocumented in this encounter Care Teams Chyron Operator Relationship Specialty Start Date End Date Momo Forbes PCP - General Family Practice 01/02/14 [facility] [address] [place] [address] documented as of this encounter
--- OUTSIDE RECORDS SUMMARY | 2022-07-10 14:01 | XMS_ITS | Encounter Summary ---
:1950 Author Organization [place] Address [address] [place] [address] Care Team Providers Name Role Phone ForbesMomo Primary Care Provider Reason for Visit Reason Onset Date Comments Transplant 06/01/2017 [place] returning call Left on 06/05/17 Encounter Details Date Type Department Care Team Description 06/01/2017 Telephone [facility] Shiva Kahn, press pipe inspector ([place] Transplant Clinic [facility] returning call Left [address] on 06/05/17) [place], [place] [phone] [place], [place] [phone] Social History Tobacco Use Types Packs/Day [...] VM to call him on Tuesday06/06/17. ADDENDUM: COMPUTER LAB PARA PROFESSIONAL TASK: Call with questions and instruction per [...] filedocumented in this encounter Care Teams Wood Stock Blank Handler Relationship Specialty Start Date End Date Momo Forbes PCP - General Family Practice 01/02/[address] [address] documented as of this encounter
--- OUTSIDE RECORDS SUMMARY | 2022-07-10 14:01 | XMS_ITS | Encounter Summary ---
:1950 Author Organization [place] Address [facility] [place] [address] Care Team Providers Name Role Phone Momo [...] on filedocumented in this encounter Care Teams Liturgical Music Director Relationship Specialty Start Date End Date Momo Forbes PCP - General Family Practice 01/02/14 [facility] [address] [place] [address] documented as of this encounter
--- OUTSIDE RECORDS SUMMARY | 2022-07-10 14:01 | XMS_ITS | Encounter Summary ---
:1950 Author Organization [place] Address [address] [place] [address] Care Team Providers Name Role Phone Momo Forbes Primary Care Provider Reason for Visit Reason Comments RECHECK Kidney tx follow up Encounter Details Date Type Department Care Team Description 10/10/2017 Office Visit [facility] Shiva Presley Sta tus post kidney transplant (Primary Dx); Nephrology Clinic Immunosuppression (H); [place] [facility] Type 2 diabetes mellitus wit h stage 3 chronic kidney disease, with long-term current use of insulin (H); [address] [place] [address] Benign essential hypertension; [place] [address] Hyperlipidemia, unspecified hyperlipidemia type; [place], [place] RANJAN 220 Skin cancer screening [phone] [place] [address] (Wo rk) Social History Tobacco [...] Comments Blood Pressure 153/74 10/10/2017 2:25 PM ECHO TECHNICIAN Pulse 55 10/10/2017 2:25 PM ECHO TECHNICIAN Temperature 36.7 ??C (98.1 ??F) 10/10/2017 2:25 PM ECHO TECHNICIAN Respiratory Rate - - Oxygen Saturation 98% 10/10/2017 2:25 PM ECHO TECHNICIAN Inhaled Oxygen Concentration - - Weight 135.4 kg (298 lb 6.4 oz) 10/10/2017 2:25 PM ECHO TECHNICIAN Height 182.9 cm (6') 10/10/2017 2:25 PM ECHO TECHNICIAN Body Mass Index 40.47 10/10/2017 2:25 PM ECHO TECHNICIAN documented in this encounter Progress Notes [...] is well as a referral to his christian science reader for monitoring for any skin cancers. 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 TECHNICIAN documented in this encounter Nursing Notes Marcelina [...] oz). Medication Reconciliation: amparo ZURITA CMA . TECHNICIAN documented in this encounter Plan of [...] skin documented in this encounter Care Teams Security Officer Relationship Specialty Start Date End Date Momo Forbes PCP - General Family Practice 01/02/14 [facility] [address] [place] [address] documented as of this encounter
--- OUTSIDE RECORDS SUMMARY | 2022-07-10 14:01 | XMS_ITS | Encounter Summary ---
:1950 Author Organization [place] Address [facility] [place] [address] Care Team Providers Name Role Phone Momo Forbes Primary Care Provider Reason for Visit Reason Onset Date Comments Transplant 08/31/2017 Encounter Details Date Type Department Care Team Description 08/31/2017 Telephone [facility] Transplant Amanda Garduno Transplant Clinic M, RN [address] [place] [address] [phone] Social History Tobacco Use Types Packs/Day [...] filedocumented in this encounter Care Teams Paper Goods Machine Operator Relationship Specialty Start Date End Date Momo Forbes PCP - General Family Practice 01/02/14 [facility] [address] [place] [address] documented as of this encounter
--- OUTSIDE RECORDS SUMMARY | 2022-07-10 14:01 | XMS_ITS | Encounter Summary ---
:1950 Author Organization [place] Address [facility] [place] [address] Care Team Providers Name Role Phone Momo Forbes Primary Care Provider Encounter Details Date Type Department Care Team Description 05/17/2018 Orders Only [facility] Alana Calderon Afterc are following Transplant trailers and motor homes salesperson organ transplant [address] [place] [address] (Primary Dx) [place] [address] Social History Tobacco Use Types [...] rimary documented in this encounter Care Teams Tutoring Assistant Relationship Specialty Start Date End Date Momo Forbes PCP - General Family Practice 01/02/14 [facility] [address] [place] [address] documented as of this encounter
--- OUTSIDE RECORDS SUMMARY | 2022-07-10 14:01 | XMS_ITS | Encounter Summary ---
:1950 Author Organization [place] Address [address] [place] [address] Care Team Providers Name Role Phone Momo Forbes Primary Care Provider Joseph Quintana MD Unavailable Encounter Details Date Type Department Care Team Description 05/15/2018 External Order Results [facility] Nurse, [facility] Transplant Clinic 9 [place] [address] Social History Tobacco Use Types [...] 54 (L) >60 LABDE SCAN (if ml/min/1.7 [place]) 3m2 (External) GFR Estimated 44 (L) >60 [...] filedocumented in this encounter Care Teams Group Account Director Relationship Specialty Start Date End Date Momo Forbes PCP - General Family Practice 01/02/14 [facility] [address] [place] [address] Joseph Quintana, Assigned Nephrology 03/29/21 MD Provider [address] [facility] 353 [facility] [address] [place] [address] documented as of this encounter
--- OUTSIDE RECORDS SUMMARY | 2022-07-10 14:01 | XMS_ITS | Encounter Summary ---
:1950 Author Organization [place] Address [address] [place] [address] Care Team Providers Name Role Phone Momo Forbes Primary Care Provider Reason for Referral Consultation - Closed Specialty Diagnoses / Procedures Referred By Contact Refer red To Contact Diagnoses Obesity Kidney transplanted [facility] Other Services 0 [place] [address] Referral ID Status Reason Start Date Expiration Date Visits Requ ested Visits Authorized [id number] Closed 10/17/2018 10/17/2019 1 1 NCE CUTTER Reason for Visit Reason Comments Transplant Encounter Details Date Type Department Care Team Description 10/17/2018 Orders Only [facility] Kavon Nazia Obesity (P rimary Dx); Transplant Clinic BOGDAN Hicks Kidney transplanted 9 [place] [address] Social History Tobacco Use Types [...] transplant documented in this encounter Care Teams Contract Administrative Assistant Relationship Specialty Start Date End Date Forbes, Ton PCP - General Family Practice 01/02/14 [facility] [address] [place] [address] documented as of this encounter
--- OUTSIDE RECORDS SUMMARY | 2022-07-10 14:01 | XMS_ITS | Encounter Summary ---
:1950 Author Organization [place] Address [facility] [place] [address] Care Team Providers Name Role Phone Momo Forbes Primary Care Provider Reason for Visit Reason Onset Date Comments Transplant Pharmacy Medication Review 01/19/2018 Encounter Details Date Type Department Care Team Description 01/19/2018 Telephone [facility] Beny Staton, Transplant Pharmacy [address] [facility] [place] [place] [address] [facility] [phone] [place] [place], [place] [address] Social History Tobacco Use Types Packs/Day Years [...] filedocumented in this encounter Care Teams Technical Training Instructor Relationship Specialty Start Date End Date Momo Forbes PCP - General Family Practice 01/02/14 [facility] [address] [place] [address] documented as of this encounter
--- OUTSIDE RECORDS SUMMARY | 2022-07-10 14:01 | XMS_ITS | Encounter Summary ---
:1950 Author Organization [place] Address [address] [place] [address] Care Team Providers Name Role Phone Momo Forbes Primary Care Provider Encounter Details Date Type Department Care Team Description 05/15/2018 Orders Only [facility] Loy Morales MD [facility] [address] [facility] 609 [address] [place], [place] [address] [place] [address] [phone] Social History Tobacco Use Types Packs/Day Years [...] (ABNORMAL) Tacrolimus level (05/15/2018 2:13 PM CDT) [facility] Method Time Signature Tacrolimus Not Provided 05/18/2018 [facility] Last Dose 7:24 AM CDT [facility] Tacrolimus 3.4 (L) 5.0 - 05/18/2018 [facility] Level 15.0 ug/L 7:24 AM CDT [facility] [...] its performa nce characteristics determined by the [facility], [...] - BLOOD ORDERABLES Performing Organization Address City/State/[facility] Phon e Number [address] Cyclosporine (05/15/2018 2:13 PM CDT) Component Value Ref Test Analysis Performed At [facility] gist Range Method Time Signature Cyclosporine CANCELLED BY 05/17/2018 [facility] Last Dose BOGDAN KOLB 1:00 PM CDT [facility] ETCHEVER ON [facility] 05/17/18 AT CAMPUS 1300 BY [place] Comment: CORRECTED ON 05/17 AT 1300: PRE VIOUSLY REPORTED [id number] Cyclosporine Level CANCELLED BY RN 50 - 400 05/17/2018 1:00 [facility] [place] ug/L PM CDT [facility] ETCHEVER ON [facility] 05/17/18 AT 1300 BY [place] Comment: CORRECTED ON 05/17 AT 1300: PRE VIOUSLY REPORTED <25 Specimen Anatomical Collection Method Collection Time Receive d Time (Source) Location / / Volume Laterality 05/15/2018 2:13 PM 8 9:59 CDT AM CDT Orlando Richey MD LAB - BLOOD ORDERABLES Performing Organization Address City/[facility] Phon e Number [address] documented in this encounter Visit Diagnoses Not on filedocumented in this encounter Care Teams Marine Operations Coordinator Relationship Specialty Start Date End Date Momo Forbes PCP - General Family Practice 01/02/14 [facility] [address] [place] [address] documented as of this encounter
--- OUTSIDE RECORDS SUMMARY | 2022-07-10 14:01 | XMS_ITS | Encounter Summary ---
:1950 Author Organization [place] Address [address] [place] [address] Care Team Providers Name Role Phone ForbesMomo Primary Care Provider Reason for Visit Reason Onset Date Comments Appointment 08/24/2018 Encounter Details Date Type Department Care Team Description 08/24/2018 Telephone [facility] Nephrology Romi Garcia RN Appointment [facility] [phone] ([facility]) [address] [place] [address] [phone] Social History Tobacco Use Types Packs/Day [...] patient to call back. Romi Rodriguez RN RY MACHINE OPERATOR Telephone Encounter - Romi Rodriguez RN - 08/24/2018 1:54 PM CST Left voicemail for patient to call back (follow up from last transplant appointment). Romi Rodriguez RN RY MACHINE OPERATOR documented in this encounter Plan of Treatment Not on filedocumented as of this encounter Visit Diagnoses Not on filedocumented in this encounter Care Teams Substitute Bus Driver Relationship Specialty Start Date End Date Momo Forbes PCP - General Family Practice 01/02/14 [facility] [address] [place] [address] documented as of this encounter
--- OUTSIDE RECORDS SUMMARY | 2022-07-10 14:01 | XMS_ITS | Encounter Summary ---
:1950 Author Organization [place] Address [facility] [place] [address] Care Team Providers Name Role Phone Momo Forbes Primary Care Provider Reason for Visit Reason Onset Date Comments Erroneous encounter-disregard 05/17/2018 Encounter Details Date Type Department Care Team Description 05/17/2018 Telephone [facility] Etcheverry, Erroneous Transplant Clinic BOGDAN Lopes encounter-disregard [address] [place] [phone] Social History Tobacco Use Types Packs/Day [...] filedocumented in this encounter Care Teams Supervisor Cutting And Sewing Room Relationship Specialty Start Date End Date Momo Forbes PCP - General Family Practice 01/02/14 [facility] [address] [place] [address] documented as of this encounter
--- OUTSIDE RECORDS SUMMARY | 2022-07-10 14:01 | XMS_ITS | Encounter Summary ---
:1950 Author Organization [place] Address [facility] [place] [address] Care Team Providers Name Role Phone Momo Forbes Primary Care Provider Encounter Details Date Type Department Care Team Description 08/18/2018 Documentation Only [facility] Josseline Recinos, Transplant Clinic RN [address] [place] [address] Social History Tobacco Use Types [...] orders faxed to: [facility] [phone] (Phone) Lab orders up to date in [facility]. ITY MANAGER documented in this encounter Plan of Treatment Not on filedocumented as of this encounter Visit Diagnoses Not on filedocumented in this encounter Care Teams Structural Fitter Relationship Specialty Start Date End Date Momo Forbes PCP - General Family Practice 01/02/14 [facility] [address] [place], [place] [phone] documented as of this encounter
--- OUTSIDE RECORDS SUMMARY | 2022-07-10 14:01 | XMS_ITS | Encounter Summary ---
:1950 Author Organization [place] Address [address] [place] [address] Care Team Providers Name Role Phone Momo Forbes Primary Care Provider Reason for Visit Reason Onset Date Comments Refill Request 12/19/2017 Encounter Details Date Type Department Care Team Description 12/19/2017 Refill [facility] Joseph Quintana MD Refill Request Transplant Clinic [address] [place] [address] [address] [phone] [place] [address] (Wo rk) Social History Tobacco [...] Fill Date: 11/14/17 Quantity: 60 Janelle Flowers [facility] [phone] documented in this encounter Plan of Treatment Not on filedocumented as of this encounter Visit Diagnoses Diagnosis Kidney transplanted Kidney replaced by transplant documented in this encounter Care Teams Application Penetration Tester Relationship Specialty Start Date End Date Momo Forbes PCP - General Family Practice 01/02/14 [facility] [address] [place] [address] documented as of this encounter
--- OUTSIDE RECORDS SUMMARY | 2022-07-10 14:01 | XMS_ITS | Encounter Summary ---
:1950 Author Organization [place] Address [facility] [place] [address] Care Team Providers Name Role Phone Momo Forbes Primary Care Provider Reason for Visit Reason Onset Date Comments Refill Request 08/31/2017 mycophenolate Encounter Details Date Type Department Care Team Description 08/31/2017 Refill [facility] Mariano, Joseph Refill R equest Transplant Clinic MD Herminio (mycophenolate) [address] [place] [address] [phone] [place] [address] (Wo rk) Social History [...] documented in this encounter Care Teams Dock Boss Relationship Specialty Start Date End Date Momo Forbes PCP - General Family Practice 01/02/14 [facility] [address] [place], [place] [phone] documented as of this encounter
--- OUTSIDE RECORDS SUMMARY | 2022-07-10 14:01 | XMS_ITS | Encounter Summary ---
:1950 Author Organization [place] Address [facility] [place] [address] Care Team Providers Name Role Phone Momo Forbes Primary Care Provider Reason for Visit Reason Onset Date Comments Refill Request 10/11/2017 Encounter Details Date Type Department Care Team Description 10/11/2017 Refill [facility] Transplant Debbie Calderon LPN Refill Request Clinic [address] [place] [address] [phone] Social History Tobacco Use Types Packs/Day [...] transplant documented in this encounter Care Teams Bias Machine Operator Helper Relationship Specialty Start Date End Date Momo Forbes PCP - General Family Practice 01/02/14 [facility] [address] [place] [address] documented as of this encounter
--- OUTSIDE RECORDS SUMMARY | 2022-07-10 14:01 | XMS_ITS | Encounter Summary ---
:1950 Author Organization [place] Address [address] [facility] [place] [address] Care Team Providers Name Role Phone Momo Forbes Primary Care Provider Reason for Visit Reason Onset Date Comments Appointment 10/05/2017 Encounter Details Date Type Department Care Team Description 10/05/2017 Telephone [facility] Shiva Presley MD Appointment Nephrology Clinic [facility] [address] [place] [address] [phone] Social History Tobacco Use Types Packs/Day Years [...] or concernsahead of appointment. Romi Rodriguez RN ERCIAL LOAN ANALYST documented in this encounter Plan of Treatment Not on filedocumented as of this encounter Visit Diagnoses Not on filedocumented in this encounter Care Teams Senior Telecommunications Consultant Relationship Specialty Start Date End Date Momo Forbes PCP - General Family Practice 01/02/14 [facility] [address] [place] [address] documented as of this encounter
--- OUTSIDE RECORDS SUMMARY | 2022-07-10 14:01 | XMS_ITS | Encounter Summary ---
:1950 Author Organization [place] Address [address] [place] [address] Care Team Providers Name Role Phone Momo Forbes Primary Care Provider Encounter Details Date Type Department Care Team Description 11/03/2017 Orders Only [facility] Loy Morales, Rachid olivia replaced by [facility] MD transplant Laboratory [address] [facility] 500 [facility] [address] [place] [phone] (Wo rk) Social History Tobacco Use Types [...] Results Tacrolimus level (11/03/2017 11:30 AM CDT) [facility] Method Time Signature Tacrolimus Not Provided 11/05/2017 [facility] Last Dose 2:20 PM CDT [facility] Tacrolimus 10.7 5.0 - 11/06/2017 [facility] Level 15.0 ug/L 1:00 PM CDT [facility] Comment: Tacrolimus Reference Range Kidney [...] its performa nce characteristics determined by the [facility], ??Special Chemistry Laboratory. It [...] Code Phon e Number [facility] [address] [place], [place] [phone] [place] [address] documented in this encounter Visit Diagnoses Diagnosis Kidney replaced by transplant documented in this encounter Care Teams Selling Underwriter Relationship Specialty Start Date End Date Momo Forbes PCP - General Family Practice 01/02/14 [facility] [address] [place] [address] documented as of this encounter
--- OUTSIDE RECORDS SUMMARY | 2022-07-10 14:01 | XMS_ITS | Encounter Summary ---
:1950 Author Organization [place] Address [facility] [place] [address] Care Team Providers Name Role Phone Momo Forbes Primary Care Provider Reason for Visit Reason Onset Date Comments Refill Request 06/28/2017 mycophenolate Encounter Details Date Type Department Care Team Description 06/28/2017 Refill M [facility] Joseph Quintana Refill R equest Transplant Clinic MD Herminio (mycophenolate) [address] [place] [phone] [place] [address] (Wo rk) Social History Tobacco [...] Fill Date: 05/31/17 Quantity: 180 Janelle [facility] [phone] ING MACHINE OPERATOR documented in this encounter Plan of Treatment Not on filedocumented as of this encounter Visit Diagnoses Diagnosis Kidney transplanted - Primary Kidney replaced by transplant documented in this encounter Care Teams Hide And Skin Classer Relationship Specialty Start Date End Date Momo Forbes PCP - General Family Practice 01/02/14 [facility] [address] [place] [address] documented as of this encounter
--- OUTSIDE RECORDS SUMMARY | 2022-07-10 14:01 | XMS_ITS | Encounter Summary ---
:1950 Author Organization [place] Address [address] [place] [address] Care Team Providers Name Role Phone ForbesMomo Primary Care Provider Reason for Visit Reason Onset Date Comments Transplant 11/07/2017 Encounter Details Date Type Department Care Team Description 11/07/2017 Telephone [facility] Transplant Nazia Jacobson, Transplant Clinic RN [address] [place], [place] [phone] Social History Tobacco Use [...] range, repeat tac level in 1 week. PLATE MAKER ZINC TASK: Call patient with instructions per plan. Enter lab orders if needed. documented in this encounter Plan of Treatment Not on filedocumented as of this encounter Visit Diagnoses Not on filedocumented in this encounter Care Teams Direct Casting Operator Relationship Specialty Start Date End Date Momo Forbes PCP - General Family Practice 01/02/[address] [address] documented as of this encounter
--- OUTSIDE RECORDS SUMMARY | 2022-07-10 14:01 | XMS_ITS | Encounter Summary ---
:1950 Author Organization [place] Address [address] [place] [address] Care Team Providers Name Role Phone Momo Forbes Primary Care Provider Joseph Quintana MD Unavailable Encounter Details Date Type Department Care Team Description 09/09/2017 External Order [facility] Nurse, [place] Kidney replaced by Results Transplant Clinic transplant [address] [place] [phone] Social History Tobacco Use Types Packs/Day [...] 07/15/2017 10:48 AM Result s for this MACHINE HOOP MAKER procedure are i n the results section. BASIC METABOLIC Routine 07/15/2017 10:48 AM Kidney replaced by Results for this PANEL MACHINE HOOP MAKER transplant procedure are i n the results [...] Results (ABNORMAL) Hemoglobin A1c (07/15/2017 10:48 AM MACHINE HOOP MAKER) Patholo gist Method Time Signature Hemoglobin A1C >14.0 (H) <=6.4 % LABDE SCAN (External) Specimen (Source) Anatomical Collection Method Collection Time Re ceived Time Location / / Volume Laterality Blood specimen 07/15/2017 10:48 (specimen) AM MACHINE HOOP MAKER Narrative JESSICA PFT - 09/09/2017 9:36 PM MACHINE HOOP MAKER Verified by Sharon Martinez on 8. Patient Reported LAB - BLOOD ORDERABLES Performing Organization Address City/State/ZIP Code Phon e Number JESSICA PFT LABDE SCAN (ABNORMAL) Basic metabolic panel (07/15/2017 10:48 AM MACHINE HOOP MAKER) Analysis Performed At Patho logist Time [...] 55 (L) >60 LABDE SCAN (if ml/min/1.7 [place]) 3m2 (External) GFR Estimated 46 (L) >60 LABDE SCAN (External) ml/min/1.7 3m2 Specimen (Source) Anatomical Collection Method Collection Time Re ceived Time Location / / Volume Laterality Blood specimen 07/15/2017 10:48 (specimen) AM MACHINE HOOP MAKER Narrative BREEZE PFT - 09/09/2017 9:36 PM MACHINE HOOP MAKER Verified by Sharon Martinez on 8. [place] [...] Narrative BREEZE PFT - 09/09/2017 9:39 PM MACHINE HOOP MAKER Verified by Sharon Martinez on 8. Patient [...] Narrative BREEZE PFT - 09/09/2017 9:39 PM MACHINE HOOP MAKER Verified by Sharon Martinez on 8. [place] [...] 51 (L) >60 LABDE SCAN (if ml/min/1.7 [place]) 3m2 (External) GFR Estimated 42 (L) >60 LABDE SCAN (External) ml/min/1.7 3m2 Specimen (Source) Anatomical Collection Method Collection Time Re ceived Time Location / / Volume Laterality Blood specimen 05/30/2017 9:32 AM (specimen) CDT Narrative BREEZE PFT - 09/09/2017 9:39 PM MACHINE HOOP MAKER Verified by Sharon Martinez on 8. [place] [...] Narrative BREEZE PFT - 09/09/2017 9:44 PM MACHINE HOOP MAKER Verified by Sharon Martinez on 8. Patient Reported LAB - BLOOD ORDERABLES Performing Organization Address City/[facility]/ZIP Code Phon e Number BREEZE [...] Narrative BREEZE PFT - 09/09/2017 9:44 PM MACHINE HOOP MAKER Verified by Sharon Martinez on 8. Patient Reported LAB - BLOOD ORDERABLES Performing Organization Address City/[facility] Code Phon e Number BREEZE PFT LABDE SCAN (ABNORMAL) Hemoglobin A1c (01/19/2017 9:30 AM CDT) Analysis Performed At [facility] logist Time Signature Hemoglobin A1C 12.4 (H) <=6.4 % LABDE SCAN (External) Specimen (Source) Anatomical Collection Method Collection Time Re ceived Time Location / / Volume Laterality Blood specimen 01/19/2017 9:30 AM (specimen) CDT Narrative BREEZE PFT - 09/09/2017 9:44 PM MACHINE HOOP MAKER Verified by Sharon Martinez on 8. Patient Reported LAB - BLOOD ORDERABLES Performing Organization Address City/[facility]/ZIP Code Phon e Number BREEZE [...] 55 (L) >60 LABDE SCAN (if ml/min/1.7 [place]ian) 3m2 (External) GFR Estimated 46 (L) >60 LABDE SCAN (External) ml/min/1.7 3m2 Specimen (Source) Anatomical Collection Method Collection Time Re ceived Time Location / / Volume Laterality Blood specimen 01/19/2017 9:30 AM (specimen) CDT Narrative JESSICA PFT - 09/09/2017 9:44 PM MACHINE HOOP MAKER Verified by Sharon Martinez on 8. Patient Reported LAB - BLOOD ORDERABLES Performing Organization Address City/State/ZIP Code Phon e Number BREEZE PFT LABDE SCAN documented in this encounter Visit Diagnoses Diagnosis Kidney replaced by transplant documented in this encounter Care Teams Commercial Administrator Relationship Specialty Start Date End Date Momo Forbes PCP - General Family Practice 01/02/14 [facility] [address] [place] [address] Joseph Quintana, Assigned Nephrology 03/29/21 MD Provider [address] [place] [address] 353 [facility] [address] [place] [address] documented as of this encounter
--- OUTSIDE RECORDS SUMMARY | 2022-07-10 14:01 | XMS_ITS | Encounter Summary ---
:1950 Author Organization [place] Address [facility] [place] [address] Care Team Providers Name Role Phone Momo Forbes Primary Care Provider Reason for Visit Reason Onset Date Comments Refill Request 10/10/2017 mycophenolae Encounter Details Date Type Department Care Team Description 10/10/2017 Refill M [facility] Joseph Quintana Refill R equest Transplant Clinic MD Herminio (mycophenolae ) [address] [place] [address] [phone] [place] [address] (Wo rk) Social History Tobacco [...] Fill Date: 09/01/17 Quantity: 180 Janelle Flowers [facility] [phone] [address] [place] documented in this encounter Plan of Treatment Not on filedocumented as of this encounter Visit Diagnoses Diagnosis Kidney transplanted Kidney replaced by transplant documented in this encounter Care Teams Vault Service Mechanic Relationship Specialty Start Date End Date Momo Forbes PCP - General Family Practice 01/02/14 [facility] [address] [place] [address] documented as of this encounter
--- OUTSIDE RECORDS SUMMARY | 2022-07-10 14:01 | XMS_ITS | Encounter Summary ---
:1950 Author Organization [place] Address [address] [place] [address] Care Team Providers Name Role Phone Momo Forbes Primary Care Provider Joseph Quintana MD Unavailable Encounter Details Date Type Department Care Team Description 09/04/2018 External Order Results [facility] Nurse, [facility] Transplant Clinic [address] [place] [phone] Social History Tobacco Use Types [...] 2:50 PM R esults for this DIFFERENTIAL ROCK SINGER procedure are i n the results section. BASIC METABOLIC PANEL Routine 09/04/2018 2:50 PM Results for this ROCK SINGER procedure are i n the results section. PROTEIN RANDOM URINE Routine 09/04/2018 2:49 PM R esults for this ROCK SINGER procedure are i n the results section. documented in this encounter Results (ABNORMAL) CBC with platelets differential (09/04/2018 2:50 PM ROCK SINGER) [facility] Method Time Signature WBC Count 3.8 [...] Laterality Blood specimen 09/04/2018 2:50 PM (specimen) ROCK SINGER Narrative JESSICA PFT - 09/06/2018 9:13 AM ROCK SINGER Verified by Cassie Florian on 09/06/2018. Patient Reported LAB - BLOOD ORDERABLES Performing Organization Address City/State/ZIP Code Phon e Number ZACHERYTYLER PFT LABDE SCAN (ABNORMAL) Basic metabolic panel (09/04/2018 2:50 PM ROCK SINGER) Analysis Performed At Patho logist Time Signature [...] Laterality Blood specimen 09/04/2018 2:50 PM (specimen) ROCK SINGER Narrative BREEZE PFT - 09/06/2018 9:13 AM ROCK SINGER Verified by Cassie Florian on 09/06/2018. Patient Reported LAB - BLOOD ORDERABLES Performing Organization Address City/State/ZIP Code Phon e Number [facility]REE[facility] PFT LABDE SCAN (ABNORMAL) Protein random urine with Creat Ratio (09/04/2018 2:49 PM ROCK SINGER) P athologist Signature Protein Random 72 (H) 1 - 14 LABDE SCAN Urine mg/dL (External) Creatinine 104.0 63.0 - LABDE SCAN Urine mg/dL 166.0 (External) mg/dL Protein Total 0.7 (H) <0.2 LABDE SCAN Ur per Cr (External) Specimen (Source) Anatomical Collection Method Collection Time Re ceived Time Location / / Volume Laterality Urine specimen 09/04/2018 2:49 PM (specimen) ROCK SINGER Narrative BREEZE PFT - 09/06/2018 9:13 AM ROCK SINGER Verified by Cassie Florian on 09/06/2018. Patient Reported LAB - URINE ORDERABLES Performing Organization Address City/State/ZIP Code Phon e Number BREEZE PFT LABDE SCAN documented in this encounter Visit Diagnoses Not on filedocumented in this encounter Care Teams Clamp Operator Relationship Specialty Start Date End Date Momo Forbes PCP - General Family Practice 01/02/14 [facility] [address] [place] [address] Joseph Quintana, Assigned Nephrology 03/29/21 MD Provider [address] [place] [address] [address] [place] [address] documented as of this encounter
--- OUTSIDE RECORDS SUMMARY | 2022-07-10 14:01 | XMS_ITS | Encounter Summary ---
:1950 Author Organization [place] Address [address] [place] [address] Care Team Providers Name Role Phone Momo Forbes Primary Care Provider Encounter Details Date Type Department Care Team Description 07/15/[address] [facility] Loy Morales Kid olivia replaced by [facility] MD transplant Laboratory [address] [facility] 500 [facility] [address] [place] [phone] (Wo rk) Social History Tobacco Use Types [...] by Results for this MASS SPECTROMETRY AM MEDICAL STENOGRAPHER transplant procedure are in the results section. documented in this encounter Results (ABNORMAL) Tacrolimus level (07/15/2017 10:48 AM [facility]) [facility] Method Time Signature Tacrolimus Last 0000 07/19/2017 [facility] Dose 07/15/17 10:48 AM [facility] Tacrolimus 4.4 (L) 5.0 - 07/19/2017 [facility] Level 15.0 ug/L 2:38 PM [facility] Comment: Tacrolimus Reference Range [...] its performa nce characteristics determined by the [facility] [...] Blood specimen 07/15/2017 10:48 7 (specimen) AM MEDICAL STENOGRAPHER 10:47 AM MEDICAL STENOGRAPHER Orlando Richey MD LAB - BLOOD ORDERABLES Performing Organization Address City/State/ZIP Code Phon e Number [facility] [place] [facility] [address] [address] [facility] 500 [place] [address] [facility] documented in this encounter Visit Diagnoses Diagnosis Kidney replaced by transplant documented in this encounter Care Teams Sports Fitness And Wellness Director Relationship Specialty Start Date End Date Momo Forbes PCP - General Family Practice 01/02/14 [facility] [address] [place] [address] documented as of this encounter
--- OUTSIDE RECORDS SUMMARY | 2022-07-10 14:01 | XMS_ITS | Encounter Summary ---
:1950 Author Organization [place] Address [address] [place] [address] Care Team Providers Name Role Phone Momo Forbes Primary Care Provider Reason for Visit Reason Onset Date Comments Transplant 09/12/2017 Encounter Details Date Type Department Care Team Description 09/12/2017 Telephone [facility] Transplant Nazia Jacobson, Transplant Clinic RN [address] [place], [place] [phone] Social History Tobacco Use [...] updated standing lab order and faxed to [facility] lab. HOLOGY INTERN Telephone Encounter - Nazia Jacobson, RN - 09/12/2017 8:36 AM PSYCHOLOGY INTERN ISSUE: Hyperglycemia (blood sugar 300-600s w/ last 2 blood draws) Overdue for transplant labs CUSTOMER SERVICES SUPERVISOR TASK: Call Diego Guthrie and ask him who is managing his diabetes? Does he have an customer service consultant? He needs to have better blood sugar control, elevated blood sugars can cause damage to his kidney. Remind him that he should be getting transplant labs done monthly. (3 years out from kidney transplant) Send updated lab letter. HOLOGY INTERN documented in this encounter Plan of Treatment Not on filedocumented as of this encounter Visit Diagnoses Not on filedocumented in this encounter Care Teams Specialist Physicians Relationship Specialty Start Date End Date Momo Forbes PCP - General Family Practice 01/02/14 [facility] [address] [place] [address] documented as of this encounter
[2022-07-10 14:02] LABS: Basophils Absolute Auto 0.01 K/uL (0.00-0.30); Basophils Percent Auto 0.2 % (0.0-3.0); Eosinophils Absolute Auto 0.08 K/uL (0.00-0.50); Eosinophils Percent Auto 1.8 % (0.0-7.0); Hematocrit 36.4 % (37.0-53.0); Hemoglobin* 11.4 gm/dL (13.5-17.5); Immature Granulocytes Abs Auto 0.01 K/uL (0.00-0.30); Immature Granulocytes Pct Auto 0.2 %; Lymphocytes Percent Auto 11.2 % (20-44); Mean Corpuscular HGB Conc 31 gm/dL (32-36); Mean Corpuscular Hemoglobin 27 pg (26-34); Mean Corpuscular Volume 86 fL (80-100); Monocytes Percent Auto 9.6 % (0.0-11.0); Platelet Count* 128 K/uL (140-440); RDW Coefficient of Variation % 15.1 % (11.5-15.5); Red Blood Count 4.23 m/uL (4.30-5.90); White Blood Count* 4.56 K/uL (4.50-11.00)
--- OUTSIDE RECORDS SUMMARY | 2022-07-10 14:02 | XMS_ITS | Encounter Summary ---
:1950 Author Organization [place] Address [address] [place] [address]. [place] [address] Care Team Providers Name Role Phone Momo Forbes Primary Care Provider Reason for Visit Reason Onset Date Comments Transplant 02/06/2016 refill Encounter Details Date Type Department Care Team Description 02/06/2016 Refill [facility] Cristy Chen LPN T ransplant (refill) Transplant Clinic [address] [place] [address] [phone] Social History Tobacco Use Types Packs/Day [...] documented in this encounter Care Teams Mate Fourth Relationship Specialty Start Date End Date Momo Forbes PCP - General Family Practice 01/02/14 [facility] [address] [place] [address] documented as of this encounter
--- OUTSIDE RECORDS SUMMARY | 2022-07-10 14:02 | XMS_ITS | Encounter Summary ---
:1950 Author Organization [place] Address [facility] [place] [address] Care Team Providers Name Role Phone Momo Forbes Primary Care Provider Reason for Visit Reason Onset Date Comments Transplant 05/26/2017 refill Encounter Details Date Type Department Care Team Description 05/26/2017 Refill [facility] Anita Joshi MD Transplant (refill) Nephrology Clinic [address] [place] [address] (Wo rk) [phone] Social History Tobacco Use Types Packs/Day Years [...] transplant documented in this encounter Care Teams Charger Operator Relationship Specialty Start Date End Date Momo Forbes PCP - General Family Practice 01/02/14 [facility] [address] [place] [address] documented as of this encounter
--- OUTSIDE RECORDS SUMMARY | 2022-07-10 14:02 | XMS_ITS | Encounter Summary ---
:1950 Author Organization [place] Address [facility] [place] [address] Care Team Providers Name Role Phone Momo Forbes Primary Care Provider Reason for Visit Reason Onset Date Comments Transplant 04/20/2016 refill Encounter Details Date Type Department Care Team Description 04/20/[address] [facility] Joseph Quintana, Transplant (refill) Transplant Clinic [address] [place] [address] [phone] [place], [place] [phone] (Wo rk) Social History Tobacco Use Types [...] transplant documented in this encounter Care Teams Observatory Director Relationship Specialty Start Date End Date Momo Forbes PCP - General Family Practice 01/02/14 [facility] [address] [place] [address] documented as of this encounter
--- OUTSIDE RECORDS SUMMARY | 2022-07-10 14:02 | XMS_ITS | Encounter Summary ---
:1950 Author Organization [place] Address [address] [place] [address] Care Team Providers Name Role Phone Forbes, Ton Primary Care Provider Encounter Details Date Type Department Care Team Description 02/20/2016 Orders Only [facility], Joseph Conor isael, [facility] 500 [facility] [address] [place] [phone] [place] [address] [place] [address] (Wo rk) Social History Tobacco [...] (ABNORMAL) Tacrolimus level (03/17/2016 10:44 AM CDT) [facility] Method Time Signature Tacrolimus Last 2100 [facility] Dose 03/16/16 [facility] Tacrolimus 4.2 (L) 5.0 - [facility] Level 15.0 ug/L [facility] Comment: Tacrolimus Reference [...] Code Phon e Number [facility] [address] documented in this encounter Visit Diagnoses Not on filedocumented in this encounter Care Teams Managed Care Provider Relationship Specialty Start Date End Date Momo Forbes PCP - General Family Practice 01/02/14 [facility] [address] [place] [phone] documented as of this encounter
--- OUTSIDE RECORDS SUMMARY | 2022-07-10 14:02 | XMS_ITS | Encounter Summary ---
:1950 Author Organization [place] Address [address] [place] [address] Care Team Providers Name Role Phone Momo Forbes Primary Care Provider Reason for Visit Reason Onset Date Comments Transplant 03/30/2016 refill Encounter Details Date Type Department Care Team Description 03/30/2016 Refill The Transplant Deysi Burns MD Transplant (refill) 2nd Floor, Clinic [phone] [place] [address] [facility] [place] [address] Social History Tobacco Use Types [...] Date: 02/19/16 Quantity: 240 Thanks!! Janelle Jackson [facility] documented in this encounter Plan of Treatment Not on filedocumented as of this encounter Visit Diagnoses Diagnosis Kidney transplanted - Primary Kidney replaced by transplant documented in this encounter Care Teams Audio/Video Technician Relationship Specialty Start Date End Date Momo Forbes PCP - General Family Practice 01/02/14 [facility] [address] [place] [address] documented as of this encounter
--- OUTSIDE RECORDS SUMMARY | 2022-07-10 14:02 | XMS_ITS | Encounter Summary ---
:1950 Author Organization [place] Address [address] [place] [address]. [place] [address] Care Team Providers Name Role Phone Momo Forbes Primary Care Provider Encounter Details Date Type Department Care Team Description 03/23/2017 Orders Only [facility] [place], Estefania [place] replaced by Nephrology Clinic transplant (Primary [address] Dx) [address] [place] [phone] Social History Tobacco Use Types Packs/Day Years [...] Primary documented in this encounter Care Teams Mechanic Helper Relationship Specialty Start Date End Date Momo Forbes PCP - General Family Practice 01/02/14 [facility] [address] [place] [address] documented as of this encounter
--- OUTSIDE RECORDS SUMMARY | 2022-07-10 14:02 | XMS_ITS | Encounter Summary ---
:1950 Author Organization [facility] Address [address] [facility] [place] [address] Care Team Providers Name Role Phone Momo Forbes Primary Care Provider Reason for Visit Reason Onset Date Comments Pre Visit Planning - Unable To Reach 10/14/2016 Encounter Details Date Type Department Care Team Description 10/14/2016 Telephone [facility] Anita Joshi MD Pre Visit Planning - Nephrology Clinic [address] [place] [address] Chelsea ble To Reach [address] [address] [phone] Social History Tobacco Use Types Packs/Day Years Used Date Smoking Tobacco: Former Cigars Quit : 08/22/2006 Smokeless Tobacco: Never Alcohol Use Standard Drinks/Week Comments Yes 0 (1 standard drink = 0.6 oz pure alcoho l) occasional drink. Sex Assigned at Date Recorded Not on file documented as of this encounter Miscellaneous Notes Telephone Encounter - Monroe Zurita DIVERSIONAL THERAPIST'S ASSISTANT - 10/14/2016 10:56 AM CST Ezekiel, this is office from Clinic 3[facility] at the [facility]. We are calling to remind you of your upcoming Nephrology appointment on 10/25/16 at 440pm. Please arrive about 1 hours prior to your appointment time for labs. Also, please bring an updated medication list or your labeled medication bottles with you to your appointment. If you have any questions or would like to cancel or reschedule your appointment, please call us at [phone]. You are welcome to have your labs done up to a week before your appointment at any [facility] or [facility] facility. If you have your labs completed before your appointment, please still come 30 minutes early for check-in MONROE ZURITA CMA RVISOR SEAMING documented in this encounter Plan of Treatment Not on filedocumented as of this encounter Visit Diagnoses Not on filedocumented in this encounter Care Teams Epic Manager Relationship Specialty Start Date End Date Momo Forbes PCP - General Family Practice 01/02/14 [facility] [address] [place] [address] documented as of this encounter
--- OUTSIDE RECORDS SUMMARY | 2022-07-10 14:02 | XMS_ITS | Encounter Summary ---
:1950 Author Organization [place] Address [address] [place] [address] Care Team Providers Name Role Phone Forbes, Momo He Primary Care Provider Encounter Details Date Type Department Care Team Description 05/30/[address] Encounter [facility] Orlando Richey, [facility] [address] [phone] (Wo rk) Social History Tobacco Use Types [...] filedocumented in this encounter Care Teams Manager Architectural Relationship Specialty Start Date End Date Momo Forbes PCP - General Family Practice 01/02/14 [facility] [address] [place] [address] documented as of this encounter
--- OUTSIDE RECORDS SUMMARY | 2022-07-10 14:02 | XMS_ITS | Encounter Summary ---
:1950 Author Organization [place] Address [address] [place] [address] Care Team Providers Name Role Phone Forbes, Ton Primary Care Provider Encounter Details Date Type Department Care Team Description 07/22/2016 Orders Only [facility], Joseph Conor isael, [facility] 500 [facility] [address] [place] [phone] [place] [address] [place] [address] (Wo rk) Social History Tobacco [...] Res ults for this MASS SPECTROMETRY PM RENTAL SALES ASSOCIATE procedure are in the results section. documented in this encounter Results (ABNORMAL) Tacrolimus level (08/09/2016 12:15 PM RENTAL SALES ASSOCIATE) [facility] Method Time Signature Tacrolimus Last 08/08/16 [facility] Dose [address] [facility] Tacrolimus 3.8 (L) 5.0 - [facility] [...] its perform ance characteristics determined by the [facility], [...] / Volume Laterality 08/09/2016 12:15 08/11/2016 PM RENTAL SALES ASSOCIATE 10:15 AM RENTAL SALES ASSOCIATE Deysi Alicea MD LAB - BLOOD ORDERABLES Performing Organization Address City/State/ZIP Code Phon e Number [facility] [address] documented in this encounter Visit Diagnoses Not on filedocumented in this encounter Care Teams Engineering Specialist Relationship Specialty Start Date End Date Momo Forbes PCP - General Family Practice 01/02/14 [facility] [address] [place] [id number] documented as of this encounter
--- OUTSIDE RECORDS SUMMARY | 2022-07-10 14:02 | XMS_ITS | Encounter Summary ---
:1950 Author Organization [place] Address [facility] [place] [address] Care Team Providers Name Role Phone Momo Forbes Primary Care Provider Reason for Visit Reason Onset Date Comments Transplant 01/16/2016 refill Encounter Details Date Type Department Care Team Description 01/16/2016 Refill The Transplant Deysi Burns MD Transplant (refill) 2nd Floor, Clinic [address]A [address] [place] [address] [facility] [place] [address] Social History Tobacco Use Types [...] transplant documented in this encounter Care Teams Disbursing Agent Relationship Specialty Start Date End Date Momo Forbes PCP - General Family Practice 01/02/14 [facility] [address] [place] [address] documented as of this encounter
--- OUTSIDE RECORDS SUMMARY | 2022-07-10 14:02 | XMS_ITS | Encounter Summary ---
:1950 Author Organization [place] Address [facility]0 [facility] [place] [address] Care Team Providers Name Role Phone Ingrid Santana RN Unavailable Unavailable Momo Forbes Primary Care Provider Reason for Referral Consultation - Closed Specialty Diagnoses / Procedures Referred By Contact Refer red To Contact Diagnoses Morbid obesity due to excess calories (H) Deysi Alicea MD [facility] [address] [place] [address] Referral ID Status Reason Start Date Expiration Date Visits Requ ested Visits Authorized [id number] Closed 09/02/2015 09/01/2016 1 1 EAR SCIENTIST Reason for Visit Reason Comments RECHECK Follow up Kidney TX 4 Encounter Details Date Type Department Care Team Description 09/02/2015 Office Visit Nephrology Deysi Alicea, S/P kidney transplant (Prima ry Dx); 2nd Floor, Clinic 2A Morbid obesity due to excess calories (H ) Tommy Wilburn [address] [place] [address] [place] [address] (Wo rk) [address] [phone] Social History Tobacco Use Types Packs/Day Years [...] Blood Pressure 128/72 09/02/2015 4:32 PM NUCLEAR SCIENTIST Pulse 61 09/02/2015 4:32 PM NUCLEAR SCIENTIST Temperature 36.7 ??C (98 ??F) 09/02/2015 4:32 PM NUCLEAR SCIENTIST Respiratory Rate - - Oxygen Saturation 94% 09/02/2015 4:32 PM NUCLEAR SCIENTIST Inhaled Oxygen Concentration - - Weight 141.8 kg (312 lb 9.6 oz) 09/02/2015 4:32 PM NUCLEAR SCIENTIST Height 182.9 cm (6' 0.01) 09/02/2015 4:32 PM NUCLEAR SCIENTIST Body Mass Index 42.39 09/02/2015 4:32 PM NUCLEAR SCIENTIST documented in this encounter Progress Notes Deysi [...] discharged on Cumadin; Cumadin was stopped by gravity meter observer during the follow up visit, as he [...] appears normal and affect normal Results: EAR SCIENTIST documented in this encounter Nursing Notes Teresa [...] BP completed using cuff size: large EAR SCIENTIST documented in this encounter Plan of [...] ) documented in this encounter Care Teams Metal Fabricating Shop Helper Relationship Specialty Start Date End Date Momo Forbes PCP - General Family Practice 01/02/14 [facility] [address] [place] [address] Ingrid Santana, RN Registered Nurse Transplant 02/10/12 documented as of this encounter
--- OUTSIDE RECORDS SUMMARY | 2022-07-10 14:02 | XMS_ITS | Encounter Summary ---
:1950 Author Organization [place] Address [facility] [place] [address] Care Team Providers Name Role Phone Momo Forbes Primary Care Provider Reason for Visit Reason Onset Date Comments Transplant Pharmacy Medication Review 02/05/2016 Encounter Details Date Type Department Care Team Description 02/05/2016 Telephone [facility] Nani Humphrey, [facility] Transplant Pharmacy 500 [facility] [place] [address] [place] [phone] [address] [place] [address] (Wo rk) Social History Tobacco Use Types [...] on filedocumented in this encounter Care Teams Events Director Relationship Specialty Start Date End Date Momo Forbes PCP - General Family Practice 01/02/14 [facility] [address] [place] [address] documented as of this encounter
--- OUTSIDE RECORDS SUMMARY | 2022-07-10 14:02 | XMS_ITS | Encounter Summary ---
:1950 Author Organization [place] Address [facility] [place] [address] Care Team Providers Name Role Phone Momo Forbes Primary Care Provider Reason for Visit Reason Onset Date Comments Transplant 12/02/2016 refill Encounter Details Date Type Department Care Team Description 12/02/[address] [facility] Anita Joshi MD Transplant (refill) Nephrology Clinic [address] [place] [address] (Wo rk) [address] [phone] Social History Tobacco Use Types Packs/Day Years [...] documented in this encounter Care Teams Clinical Admissions Manager Relationship Specialty Start Date End Date Momo Forbes PCP - General Family Practice 01/02/14 [facility] [address] [place] [address] documented as of this encounter
--- OUTSIDE RECORDS SUMMARY | 2022-07-10 14:02 | XMS_ITS | Encounter Summary ---
:1950 Author Organization [place] Address [address] [place] [address] Care Team Providers Name Role Phone Momo Forbes Primary Care Provider Encounter Details Date Type Department Care Team Description 01/19/2017 Orders Only [facility] Loy Morales, Aft ercare following organ transplant; [facility] Kidney replaced by transplant; Laboratory [address] [facility] [address] [facility] Encounter for long-term curr ent use of medication [address] [place] [address] [phone] (Wo rk) Social History Tobacco Use Types [...] Results Tacrolimus level (01/19/2017 9:25 AM CDT) [facility] Method Time Signature Tacrolimus Last 0800 [facility] Dose 01/19/17 [facility] Tacrolimus 6.5 5.0 - [facility] 15.0 ug/L [facility] Comment: Tacrolimus Reference Range Kidney Transplant [...] Address City/State/ZIP Code Phon e Number [address] [address], [facility] documented in this encounter Visit Diagnoses Diagnosis Aftercare following organ transplant Kidney replaced by transplant Encounter for long-term current use of m edication documented in this encounter Care Teams Mandarin Speaking Nanny Relationship Specialty Start Date End Date Momo Forbes PCP - General Family Practice 01/02/14 [facility] [address] [place] [address] documented as of this encounter
--- OUTSIDE RECORDS SUMMARY | 2022-07-10 14:02 | XMS_ITS | Encounter Summary ---
:1950 Author Organization [place] Address [address] [place] [address] Care Team Providers Name Role Phone Momo Forbes Primary Care Provider Joseph Quintana MD Unavailable Encounter Details Date Type Department Care Team Description 08/18/2016 External Order Results [facility] Nurse, [facility] Transplant Clinic [address] [place] [address] Social History Tobacco Use Types [...] 08/09/2016 12:21 PM Results for this RESULTS INDUSTRIAL WORKERS procedure are i n the results section. documented in this encounter Results (ABNORMAL) TXP External Lab Result (08/09/2016 12:21 PM INDUSTRIAL WORKERS) Analysis Performed At Patho logist Time Signature [...] / / Volume Laterality 08/09/2016 12:21 PM INDUSTRIAL WORKERS Narrative [facility] - 08/18/2016 1:35 PM INDUSTRIAL WORKERS Verified by Jessica Major on 016. Patient Reported LABORATORY Performing Organization Address City/State/ZIP Code Phon e Number [facility] documented in this encounter Visit Diagnoses Not on filedocumented in this encounter Care Teams Etl Manager Relationship Specialty Start Date End Date Momo Forbes PCP - General Family Practice 01/02/14 [facility] [address] [place] [address] Joseph Quintana, Assigned Nephrology 03/29/21 MD Provider [address] [place] [address] [address] [place], [place] [id number] documented as of this encounter
--- OUTSIDE RECORDS SUMMARY | 2022-07-10 14:02 | XMS_ITS | Encounter Summary ---
:1950 Author Organization [place] Address [address] [place] [address]. [place] [address] Care Team Providers Name Role Phone Momo Forbes Primary Care Provider Reason for Visit Reason Onset Date Comments Transplant 03/15/2016 refill Encounter Details Date Type Department Care Team Description 03/15/2016 Refill [facility] Cristy Chen LPN T ransplant (refill) Transplant Clinic [address] [place] [phone] Social History Tobacco Use Types Packs/Day [...] transplant documented in this encounter Care Teams Career Services Assistant Relationship Specialty Start Date End Date Momo Forbes PCP - General Family Practice 01/02/14 [facility] [address] [place] [address] documented as of this encounter
--- OUTSIDE RECORDS SUMMARY | 2022-07-10 14:02 | XMS_ITS | Encounter Summary ---
:1950 Author Organization [place] Address [address] [place] [address] Care Team Providers Name Role Phone Momo Forbes Primary Care Provider Joseph Quintana MD Unavailable Encounter Details Date Type Department Care Team Description 03/18/2016 External Order Results [facility] Nurse, [facility] Transplant Clinic [address] [place] [address] Social History Tobacco Use [...] External Lab Result (03/17/2016 10:45 AM CDT) [facility] Method Time Signature Sodium (External) [...] on filedocumented in this encounter Care Teams Mathematical Physicist Relationship Specialty Start Date End Date Momo Forbes PCP - General Family Practice 5/14/14 [facility] [address] [place] [address] Joseph Quintana, Assigned Nephrology 03/29/21 MD Provider [address] [place] [address] [address] [place] [address] documented as of this encounter
--- OUTSIDE RECORDS SUMMARY | 2022-07-10 14:02 | XMS_ITS | Encounter Summary ---
:1950 Author Organization [place] Address [facility] [place] [address] Care Team Providers Name Role Phone Momo Forbes Primary Care Provider Reason for Visit Reason Comments RECHECK Kidney follow up Encounter Details Date Type Department Care Team Description 10/25/2016 Office Visit [facility] Anita Joshi MD Renal hypertension, Nephrology Clinic [address] [place] [address] 1-4 [address] [place] [address] unspecified chronic [address] [place], [place] [address] (Primary Dx) [address] [phone] Social History Tobacco Use Types Packs/Day Years [...] Comments Blood Pressure 168/83 10/25/2016 4:39 PM PATROL GUARD Pulse 55 10/25/2016 4:39 PM PATROL GUARD Temperature 36.8 ??C (98.3 ??F) 10/25/2016 4:39 PM PATROL GUARD Respiratory Rate 18 10/25/2016 4:39 PM PATROL GUARD Oxygen Saturation - - Inhaled Oxygen Concentration - - Weight 138.2 kg (304 lb 9.6 oz) 10/25/2016 4:39 PM PATROL GUARD Height 182.9 cm (6') 10/25/2016 4:39 PM PATROL GUARD Body Mass Index 41.31 10/25/2016 4:39 PM PATROL GUARD documented in this encounter Progress Notes Chucho [...] (304 lb 9.6 oz). Medication Reconciliation: complete OL GUARD documented in this encounter Plan of Treatment Not on filedocumented as of this encounter Visit Diagnoses Diagnosis Renal hypertension, stage 1-4 or unspeci fied chronic kidney disease - Primary documented in this encounter Care Teams Coat Check Attendant Relationship Specialty Start Date End Date Momo Forbes PCP - General Family Practice 01/02/14 [facility] [address] [place] [address] documented as of this encounter
--- OUTSIDE RECORDS SUMMARY | 2022-07-10 14:02 | XMS_ITS | Encounter Summary ---
:1950 Author Organization [place] Address [address] [place] [address] Care Team Providers Name Role Phone Momo Forbes Primary Care Provider Joseph Quintana MD Unavailable Encounter Details Date Type Department Care Team Description 05/03/2016 External Order Results [facility] Nurse, [facility] Transplant Clinic [address] [place] [address] Social History Tobacco Use Types [...] - 05/03/2016 9:58 AM CDT Verified by Xiomaar Bello on 05/03/20 16. Patient Reported LABORATORY Performing Organization Address City/State/ZIP Code Phon e Number [facility] documented in this encounter Visit Diagnoses Not on filedocumented in this encounter Care Teams Ladies Underwear Operator Relationship Specialty Start Date End Date Momo Forbes PCP - General Family Practice 01/02/14 [facility] [address] [place] [address] Joseph Quintana, Assigned Nephrology 03/29/21 MD Provider 7 [facility] 353 [facility] [address] [place] [address] documented as of this encounter
--- OUTSIDE RECORDS SUMMARY | 2022-07-10 14:02 | XMS_ITS | Encounter Summary ---
:1950 Author Organization [place] Address [address] [place] [address] Care Team Providers Name Role Phone Momo Forbes Primary Care Provider Encounter Details Date Type Department Care Team Description 10/25/2016 [facility] Only [facility] Th[facility]ocyt[facility] (H[facility] [address] [facility] SE Aftercare following organ tr ansplant; 1st Floor Kidney replaced by transplan t; [place], [place] Encounter fo r long-term current use [...] Thrombocytopenia (H) Resu lts for this PM DRIVER/GUIDE procedure are i n the results section. BASIC METABOLIC Routine 10/25/2016 3:54 Aftercare following Re sults for this PANEL PM DRIVER/GUIDE organ transplant procedure are in Kidney replaced by the [facility] ts transplant section. Encounter for long-term current use of medication CBC WITH PLATELETS Routine 10/25/2016 3:54 Aftercare following Results for this PM DRIVER/GUIDE organ transplant procedure are in Kidney replaced by the [facility] ts transplant section. Encounter for long-term current use of medication PROTEIN RANDOM Routine 10/25/2016 3:52 Aftercare following Res ults for this URINE PM DRIVER/GUIDE organ transplant procedure are in Kidney replaced by the [facility] ts transplant section. Encounter for long-term current use of medication CREATININE URINE Routine 10/25/2016 3:52 Thrombocytopenia (H) Results for this CALCULATION ONLY PM DRIVER/GUIDE procedure a re in (LAB ONLY) the results section. documented in this encounter Results (ABNORMAL) Basic metabolic panel (10/25/2016 3:54 PM DRIVER/GUIDE) Patholo gist Method Time Signature Sodium 142 133 - 144 [facility] mmol/L [facility] Potassium 4.2 3.4 - 5.3 [facility] mmol/L [facility] Chloride 108 94 - 109 [facility] mmol/L [facility] Carbon Dioxide 28 20 - 32 [facility] mmol/L [facility] Anion Gap 7 3 - 14 [facility] mmol/L [facility] Glucose 120 (H) 70 - 99 [facility] mg/dL [facility] Urea Nitrogen 19 7 - 30 [facility] mg/dL [facility] Creatinine 1.39 (H) 0.66 - [facility] 1.25 mg/dL [facility] GFR Estimate 51 (L) >60 [facility] mL/min/1.7 [place] m2 [facility] Comment: Non GFR Calc GFR Estimate If Black 62 >60 mL/min/1.7m2 U [facility] Comment: GFR Calc Calcium 9.4 8.5 - 10.1 mg/dL [facility] Specimen Anatomical Collection Method Collection Time Receive d Time (Source) Location / / Volume Laterality Blood specimen 10/25/2016 3:54 PM 017 3:55 (specimen) DRIVER/GUIDE PM DRIVER/GUIDE Chucho Joshi MD LAB - BLOOD ORDERABLES Performing Organization Address City/State/ZIP Code Phon e Number [address] [address] [facility] (ABNORMAL) CBC with platelets (10/25/2016 3:54 PM DRIVER/GUIDE) Analysis Performed At Patho logist Time Signature WBC 5.1 4.0 - 11.0 [facility] 10e9/L [facility] RBC Count 5.50 4.4 - 5.9 [facility] 10e12/L [facility] Hemoglobin 15.5 13.3 - [facility] 17.7 g/dL [facility] Hematocrit 46.0 40.0 - [facility] 53.0 % [facility] MCV 84 78 - 100 [facility] fl [facility] MCH 28.2 26.5 - [facility] 33.0 pg [facility] MCHC 33.7 31.5 - [facility] 36.5 g/dL [facility] RDW 14.1 10.0 - [facility] 15.0 % [facility] Platelet Count 124 (L) 150 - 450 [facility] 10e9/L [facility] Specimen Anatomical Collection Method Collection Time Receive d Time (Source) Location / / Volume Laterality Blood specimen 10/25/2016 3:54 PM 017 3:55 (specimen) DRIVER/GUIDE PM DRIVER/GUIDE Chucho Joshi MD LAB - BLOOD ORDERABLES Performing Organization Address City/[facility]/ZIP Code Phon e Number [address] [address] [facility] Folate RBC (10/25/2016 3:54 PM DRIVER/GUIDE) athologist Signature HCT Within 46.0 % [facility] Past 24h [facility] Folate RBC 663 ng/mL [facility] Comment: Reference range: >=366 (Note) Performed by [employer], [address] [place] [id number] [email or web address], Geoff Reed MD, Lab. Director Specimen Anatomical Collection Method Collection Time Receive d Time (Source) Location / / Volume Laterality Blood specimen 10/25/2016 3:54 PM 017 3:55 (specimen) DRIVER/GUIDE PM DRIVER/GUIDE Chucho Joshi MD LAB - BLOOD ORDERABLES Performing Organization Address City/State/ZIP Code Phon e Number [address] [address] [facility] Creatinine urine calculation only (10/25/2016 3:52 PM DRIVER/GUIDE) P athologist Signature Creatinine 152 mg/dL [facility] Specimen Anatomical Collection Method Collection Time Receive d Time (Source) Location / / Volume Laterality 10/25/2016 3:52 PM 7 4:12 DRIVER/GUIDE PM DRIVER/GUIDE Chucho Joshi MD LAB - URINE ORDERABLES Performing Organization Address City/State/ZIP Code Phon e Number M [facility] [address] [place] [place] [address] [facility] [address] [place] [address], [place] [phone] (ABNORMAL) Protein random urine (10/25/2016 3:52 PM DRIVER/GUIDE) Analysis Performed At Patho logist Time Signature Protein Random 0.48 g/L [place] Urine [facility] Protein Total 0.31 (H) 0 - 0.2 [place] Urine g/gr g/g Cr [facility] Specimen Anatomical Collection Method Collection Time Receive d Time (Source) Location / / Volume Laterality Urine specimen 10/25/2016 3:52 PM 017 4:12 (specimen) DRIVER/GUIDE PM DRIVER/GUIDE Chucho Joshi MD LAB - URINE ORDERABLES Performing Organization Address City/State/ZIP Code Phon e Number [facility] [address] [place] [phone] [facility] [address] [place] [address], [place] [phone] documented in this encounter Visit Diagnoses Diagnosis Thrombocytopenia (H) Thrombocytopenia, unspecified Aftercare following organ transplant Kidney replaced by transplant Encounter for long-term current use of m edication documented in this encounter Care Teams Help Desk Manager Relationship Specialty Start Date End Date Momo Forbes PCP - General Family Practice 01/02/14 [facility] [address] [place] [address] documented as of this encounter
--- OUTSIDE RECORDS SUMMARY | 2022-07-10 14:02 | XMS_ITS | Encounter Summary ---
:1950 Author Organization [place] Address [facility] [place] [address] Care Team Providers Name Role Phone Momo Forbes Primary Care Provider Reason for Visit Reason Onset Date Comments Transplant Pharmacy Medication Review 01/26/2017 Encounter Details Date Type Department Care Team Description 01/26/2017 Telephone [facility] Janes Rodriguez, Transplant Pharmacy [address] [facility] [place] [phone] Social History Tobacco Use Types Packs/Day Years [...] on filedocumented in this encounter Care Teams Morning Caregiver Relationship Specialty Start Date End Date Momo Forbes PCP - General Family Practice 01/02/14 [facility] [address] [place] [address] documented as of this encounter
--- OUTSIDE RECORDS SUMMARY | 2022-07-10 14:02 | XMS_ITS | Encounter Summary ---
:1950 Author Organization [place] Address [facility] access hospital0 [facility] [place] [address] Care Team Providers Name Role Phone Momo Forbes Primary Care Provider Reason for Visit Reason Onset Date Comments Transplant 02/19/2016 refill Encounter Details Date Type Department Care Team Description 02/19/2016 Refill The Transplant Deysi Burns MD Transplant (refill) 2nd Floor, Clinic [address] [place] [address] [place] [address] Social History Tobacco Use Types [...] transplant documented in this encounter Care Teams Cna Gna Relationship Specialty Start Date End Date Momo Forbes PCP - General Family Practice 01/02/14 [facility] [address] [place] [address] documented as of this encounter
--- OUTSIDE RECORDS SUMMARY | 2022-07-10 14:02 | XMS_ITS | Encounter Summary ---
:1950 Author Organization [place] Address [address] [place] [address] Care Team Providers Name Role Phone Momo Forbes Primary Care Provider Reason for Visit Reason Onset Date Comments Transplant 05/10/2016 refill Encounter Details Date Type Department Care Team Description 05/10/2016 Refill The Transplant Chucho Perez MD Transplant (refill) 2nd Floor, Clinic [address]A [address] [place] [address] [facility] [place] [address] Social History Tobacco Use Types [...] send new rx Thank you Janelle Flowers [facility] [phone] documented in this encounter Plan of Treatment Not on filedocumented as of this encounter Visit Diagnoses Diagnosis Kidney transplanted - Primary Kidney replaced by transplant documented in this encounter Care Teams Kiss Machine Operator Relationship Specialty Start Date End Date Momo Forbes PCP - General Family Practice 01/02/14 [facility] [address] [place] [phone] documented as of this encounter
--- OUTSIDE RECORDS SUMMARY | 2022-07-10 14:02 | XMS_ITS | Encounter Summary ---
:1950 Author Organization [place] Address [address] [place] [address] Care Team Providers Name Role Phone Forbes, Momo He Primary Care Provider Reason for Visit Reason Onset Date Comments Transplant Immunosuppression Management 08/13/2016 Encounter Details Date Type Department Care Team Description 08/13/2016 Telephone [facility] Shiva Kahn Transp [facility] Transplant Clinic RN Immunosuppression [address] [place] [address] [phone] [place] [address] [place] [phone] Social History Tobacco Use Types Packs/Day Years [...] Patient will repeat labs in 1-2 weeks. VOLTAGE ELECTRICIAN Telephone Encounter - Shiva Kahn RN - 08/13/2016 7:42 AM CST Tacrolimus level 3.8 reported as 18-hour level. PLAN: Verify timing of labs tac dose and time of blood draw for tac level. Repeat tac level taking care to get a good 12-hour level (11-13 hours acceptable). TASK: Please call patient with questions and instructions per plan. VOLTAGE ELECTRICIAN documented in this encounter Plan of Treatment Not on filedocumented as of this encounter Visit Diagnoses Diagnosis Kidney replaced by transplant - Primary Aftercare following organ transplant Encounter for long-term current use of m edication documented in this encounter Care Teams Guide Delegate Relationship Specialty Start Date End Date Momo Forbes PCP - General Family Practice 01/02/14 [facility] [address] [place] [address] documented as of this encounter
--- OUTSIDE RECORDS SUMMARY | 2022-07-10 14:02 | XMS_ITS | Encounter Summary ---
:1950 Author Organization [place] Address Critical access hospital0 [facility] [place] [address] Care Team Providers Name Role Phone Momo Forbes Primary Care Provider Reason for Visit Reason Comments RECHECK 6 mo follow up,christiano cruz Encounter Details Date Type Department Care Team Description [facility]2016 [facility] Renal hypertension, stage 1-4 or unspecified chronic kidney disease (Primary Dx); Nephrology Clinic Reactive depression; [address] Thrombocytopenia (H) [facility] RANJAN [address] [place] [phone] Social History Tobacco Use Types Packs/Day [...] Mass Index 41.55 09/02/2015 4:32 PM DIRECTOR POWER documented in this encounter Progress Notes Chucho [...] Results Folate RBC (10/25/2016 3:54 PM DIRECTOR POWER) athologist Signature HCT Within 46.0 % [address] Folate RBC 663 ng/mL [facility] Comment: Reference range: >=366 (Note) Performed by [employer], [address] [place] [address] [email or web address], Geoff Reed MD, Lab. Director Specimen Anatomical Collection Method Collection Time Receive d Time (Source) Location / / Volume Laterality Blood specimen 10/25/2016 3:54 PM 017 3:55 (specimen) DIRECTOR POWER PM DIRECTOR POWER Chucho Joshi MD LAB - BLOOD ORDERABLES Performing Organization Address City/State/ZIP Code Phon e Number [address] [address] [facility] documented in this encounter Visit Diagnoses Diagnosis Renal hypertension, stage 1-4 or unspeci fied chronic kidney disease - Primary Reactive depression Dysthymic disorder Thrombocytopenia (H) Thrombocytopenia, unspecified documented in this encounter Care Teams Document Management Analyst Relationship Specialty Start Date End Date Momo Forbes PCP - General Family Practice 01/02/14 [facility] [address] [place] [address] documented as of this encounter
--- OUTSIDE RECORDS SUMMARY | 2022-07-10 14:02 | XMS_ITS | Encounter Summary ---
:1950 Author Organization [place] Address [facility] [place] [address] Care Team Providers Name Role Phone Momo Forbes Primary Care Provider Reason for Visit Reason Onset Date Comments Refill Request 09/28/2016 Encounter Details Date Type Department Care Team Description 09/28/2016 Refill [facility] Anita Joshi MD Refill Request Nephrology Clinic [address] [place] [address] [place] [phone] Social History Tobacco Use Types Packs/Day Years [...] 1:51 PM CST Last Office Visit with Sewing Machinist: March 2016. Medication refilled per Nephrology Clinic protocol. Janes Jauregui RN AIN CANNERY TENDER documented in this encounter Plan of Treatment Not on filedocumented as of this encounter Visit Diagnoses Diagnosis Reactive depression - Primary Dysthymic disorder documented in this encounter Care Teams Footwear Production Machine Operator Relationship Specialty Start Date End Date Momo Forbes PCP - General Family Practice 01/02/[address] [place] [address] documented as of this encounter
--- OUTSIDE RECORDS SUMMARY | 2022-07-10 14:02 | XMS_ITS | Encounter Summary ---
:1950 Author Organization [place] Address [facility] [place] [address] Care Team Providers Name Role Phone Momo Forbes Primary Care Provider Reason for Visit Reason Onset Date Comments Transplant 02/19/2016 refill Encounter Details Date Type Department Care Team Description 02/19/2016 Refill The Transplant Deysi Burns MD Transplant (refill) 2nd Floor, Clinic [address]A [address] [place] [address] [facility] [place] [address] Social History Tobacco Use Types [...] documented in this encounter Care Teams Last Turner Relationship Specialty Start Date End Date Momo Forbes PCP - General Family Practice 01/02/14 [facility] [address] [place] [address] documented as of this encounter
[2022-07-10 14:03] LABS: Slide Review Reflex No
--- OUTSIDE RECORDS SUMMARY | 2022-07-10 14:03 | XMS_ITS | Encounter Summary ---
:1950 Author Organization [place] Address [address] [place] [address] Care Team Providers Name Role Phone Ingrid Santana RN Unavailable Unavailable Momo Forbes Primary Care Provider Reason for Visit Reason Onset Date Comments Medication Question 09/12/2014 Encounter Details Date Type Department Care Team Description 09/12/2014 Telephone PHARMACY Beny Staton Geovanni Medication Question 500 [facility] [place] [address] PHARMACY [phone] [place] [address] Social History Tobacco Use Types [...] his dr told himhis bp was good. FCASE SEWER documented in this encounter Plan of Treatment Not on filedocumented as of this encounter Visit Diagnoses Not on filedocumented in this encounter Care Teams Train Operations Supervisor Relationship Specialty Start Date End Date Momo Forbes PCP - General Family Practice 01/02/14 [facility] [address] [place] [address] Ingrid Santana, RN Registered Nurse Transplant 02/10/12 documented as of this encounter
--- OUTSIDE RECORDS SUMMARY | 2022-07-10 14:03 | XMS_ITS | Encounter Summary ---
:1950 Author Organization [place] Address [facility] [place] [address] Care Team Providers Name Role Phone Ingrid Santana RN Unavailable Unavailable Momo Forbes Primary Care Provider Encounter Details Date Type Department Care Team Description 12/27/2014 External Order Results The Transplant Ce nter Nurse, [facility] 2nd Floor, Clinic [address]A [address] [phone] Social History Tobacco Use Types [...] External Lab Result (12/25/2014 9:48 AM CDT) [facility] Method Time Signature Sodium 138 135 [...] 51 (L) >60 LABDE SCAN (if ml/min/1. Central African) 73m2 (External) GFR Estimated 42 (L) >60 [...] on filedocumented in this encounter Care Teams Lace Paper Machine Operator Relationship Specialty Start Date End Date Momo Forbes PCP - General Family Practice 01/02/14 [facility] [address] [place] [address] Ingrid Santana, RN Registered Nurse Transplant 02/10/12 documented as of this encounter
--- OUTSIDE RECORDS SUMMARY | 2022-07-10 14:03 | XMS_ITS | Encounter Summary ---
:1950 Author Organization [place] Address [facility] [place] [address] Care Team Providers Name Role Phone Ingrid Santana RN Unavailable Unavailable Momo Forbes Primary Care Provider Encounter Details Date Type Department Care Team Description 08/03/2014 Abstract The Transplant [facility] 2nd Floor, Clinic 2A [address] [phone] Social History Tobacco Use [...] filedocumented in this encounter Care Teams Financial Economist Relationship Specialty Start Date End Date Momo Forbes PCP - General Family Practice 01/02/14 [facility] [address] [place] [address] Ingrid Santana, RN Registered Nurse Transplant 02/10/12 documented as of this encounter
--- OUTSIDE RECORDS SUMMARY | 2022-07-10 14:03 | XMS_ITS | Encounter Summary ---
:1950 Author Organization [place] Address [address] [place] [address] Care Team Providers Name Role Phone Ingrid Santana RN Unavailable Unavailable Momo Forbes Primary Care Provider Encounter Details Date Type Department Care Team Description 10/20/[address] [facility], [facility] critical [facility], [facility] [place] [address] [phone] [place] [address] [address] [place] [address] (Wo rk) Social History Tobacco [...] Results Tacrolimus level (11/05/2014 8:29 AM CDT) [facility] Method Time Signature Tacrolimus Last 2029, [facility] Dose 11/04/14 [facility] Tacrolimus 7.7 5.0 - [facility] Level 15.0 ug/L [facility] Comment: Tacrolimus [...] its perform ance characteristics determined by the [facility], ??Special Chemistry Laboratory. It has [...] Code Phon e Number [facility] [address] documented in this encounter Visit Diagnoses Not on filedocumented in this encounter Care Teams Customs Port Director Relationship Specialty Start Date End Date Momo Forbes PCP - General Family Practice 01/02/14 [place] [phone] Ingrid Santana, RN Registered Nurse Transplant 02/10/12 documented as of this encounter
--- OUTSIDE RECORDS SUMMARY | 2022-07-10 14:03 | XMS_ITS | Encounter Summary ---
:1950 Author Organization [place] Address [address] [place] [address] Care Team Providers Name Role Phone Ingrid Santana RN Unavailable Unavailable Momo Forbes Primary Care Provider Joseph Quintana MD Unavailable Encounter Details Date Type Department Care Team Description 08/28/2014 External Order Results The Transplant Ce nter Nurse, [facility] 2nd Floor, Clinic 2A [address] [place] [address] Social History Tobacco Use Types [...] 08/26/2014 10:25 AM Results for this RESULTS HEDGE FUND MANAGER procedure are i n the results section. documented in this encounter Results (ABNORMAL) TXP External Lab Result (08/26/2014 10:25 AM HEDGE FUND MANAGER) Analysis Performed At Patho logist Time [...] 58 (L) >60 LABDE SCAN (if ml/min/1.7 Venezuelan) 3m2 (External) GFR Estimated 48 (L) >60 [...] / / Volume Laterality 08/26/2014 10:25 AM HEDGE FUND MANAGER Narrative [facility] - 08/28/2014 4:34 PM HEDGE FUND MANAGER Verified by Freddy Mehta on 08/28. Patient Reported LABORATORY Performing Organization Address City/State/ZIP Code Phon e Number [facility] LABDE SCAN documented in this encounter Visit Diagnoses Not on filedocumented in this encounter Care Teams Manufacturer Agent Relationship Specialty Start Date End Date Momo Forbes PCP - General Family Practice 01/02/14 [facility] [address] [place] [address] Ingrid Santana, RN Registered Nurse Transplant 02/10/12 Joseph Quintana, Assigned Nephrology 03/29/21 MD Provider [address]17 [facility] 353 [facility] [address] [place] [address] documented as of this encounter
--- OUTSIDE RECORDS SUMMARY | 2022-07-10 14:03 | XMS_ITS | Encounter Summary ---
:1950 Author Organization [place] Address [facility] [place] [address] Care Team Providers Name Role Phone Ingrid Santana RN Unavailable Unavailable Momo Forbes Primary Care Provider Reason for Visit Reason Onset Date Comments Refill Request 04/21/2015 crestor Encounter Details Date Type Department Care Team Description 04/21/2015 Refill [facility] [address] Refill Request Physicians Orestes Hernandez MD (crestor) [facility] Building [place] 4th Floor, Clinic 4B [address] [place] [id number] [place] [address] (Wo rk) [phone] Social History Tobacco Use Types Packs/Day Years [...] # refills: 11 Last Office Visit with [facility] primary care provider: 05/14/14 CHOL 126 02/06/2014 HDL 35 02/06/2014 LDL 71 02/06/2014 TRIG 100 02/06/2014 CHOLHDLRATIO 3.6 02/06/2014 Gayathri Or[facility] [address] [place] [facility] [address] documented in this encounter Plan of Treatment Not on filedocumented as of this encounter Visit Diagnoses Diagnosis DM (diabetes mellitus), type 2 (H) - Ana ashley Type II or unspecified type diabetes aung litus without mention of complication, not stated as uncontrolled Other and unspecified hyperlipidemia documented in this encounter Care Teams Steel Shot Header Operator Relationship Specialty Start Date End Date Momo Forbes PCP - General Family Practice 01/02/[address] [address] Ingrid Santana, RN Registered Nurse Transplant 02/10/12 documented as of this encounter
--- OUTSIDE RECORDS SUMMARY | 2022-07-10 14:03 | XMS_ITS | Encounter Summary ---
:1950 Author Organization [place] Address [address] [place] [address] Care Team Providers Name Role Phone Ingrid Santana RN Unavailable Unavailable Momo Forbes Primary Care Provider Joseph Quintana MD Unavailable Encounter Details Date Type Department Care Team Description 11/07/2014 External Order Results The Transplant Ce nter Nurse, [facility] 2nd Floor, Clinic [address]A [address] [phone] Social History Tobacco Use [...] Estimated >60 >60 LABDE SCAN (if ml/min/1.7 Somali) 3m2 (External) GFR Estimated 51 (L) >60 [...] filedocumented in this encounter Care Teams Solar Sales Assessor Relationship Specialty Start Date End Date Momo Forbes PCP - General Family Practice 01/02/14 [place] [address] Ingrid Santana, RN Registered Nurse Transplant 02/10/12 Joseph Quintana, Assigned Nephrology 03/29/21 MD Provider [address] [place] [phone] documented as of this encounter
--- OUTSIDE RECORDS SUMMARY | 2022-07-10 14:03 | XMS_ITS | Encounter Summary ---
:1950 Author Organization [place] Address [address] [place] [address] Care Team Providers Name Role Phone Ingrid Santana RN Unavailable Unavailable Momo Forbes Primary Care Provider Encounter Details Date Type Department Care Team Description 12/30/2014 Orders Only The Transplant Shiva Arias, RN -donor kidney 2nd Floor, Clinic 2A [facility] transplant recipient Tommy Guillermoteen 420 [facility] (Primary Dx) Building [address] [place] [address] [place] [address] Social History Tobacco Use Types [...] documented in this encounter Care Teams President Trust Company Relationship Specialty Start Date End Date Momo Forbes PCP - General Family Practice 01/02/14 [facility] [address] [place] [phone] Ingrid Santana, RN Registered Nurse Transplant 02/10/12 documented as of this encounter
--- OUTSIDE RECORDS SUMMARY | 2022-07-10 14:03 | XMS_ITS | Encounter Summary ---
:1950 Author Organization [place] Address [address] [place] [address] Care Team Providers Name Role Phone Ingrid Santana RN Unavailable Unavailable Momo Forbes Primary Care Provider Joseph Quintana MD Unavailable Encounter Details Date Type Department Care Team Description 02/03/2015 External Order Results The Transplant Ce nter Nurse, [facility] 2nd Floor, Clinic 2A [address] [phone] Social History Tobacco Use [...] External Lab Result (01/28/2015 8:56 AM CDT) [facility] Method Time Signature Sodium (External) 140 [...] in this encounter Care Teams Meat Cutter Relationship Specialty Start Date End Date Momo Forbes PCP - General Family Practice 01/02/14 [facility] [address] [place] [address] Ingrid Santana, RN Registered Nurse Transplant 02/10/12 Joseph Quintana, Assigned Nephrology 03/29/21 MD Provider [address] [place] [address] [address] [place] [address] documented as of this encounter
--- OUTSIDE RECORDS SUMMARY | 2022-07-10 14:03 | XMS_ITS | Encounter Summary ---
:1950 Author Organization [place] Address [facility] [place] [address] Care Team Providers Name Role Phone Ingrid Santana RN Unavailable Unavailable Momo Forbes Primary Care Provider Reason for Visit Reason Onset Date Comments Transplant 12/31/2014 Encounter Details Date Type Department Care Team Description 12/31/2014 Telephone [facility] Transplant Ankita Ordo[facility]ez Transplant Clinic [address] [place] [phone] Social History Tobacco Use Types [...] filedocumented in this encounter Care Teams Heat Seal Operator Relationship Specialty Start Date End Date Momo Forbes PCP - General Family Practice 01/02/14 [facility] [address] [place] [address] Ingrid Santana RN Registered Nurse Transplant 02/10/12 documented as of this encounter
--- OUTSIDE RECORDS SUMMARY | 2022-07-10 14:03 | XMS_ITS | Encounter Summary ---
:1950 Author Organization [place] Address [address] [place] [address] Care Team Providers Name Role Phone Ingrid Santana RN Unavailable Unavailable Momo Forbes Primary Care Provider Joseph Quintana MD Unavailable Encounter Details Date Type Department Care Team Description 08/14/2015 External Order Results The Transplant Ce nter Nurse, [facility] 2nd Floor, Clinic 2A [address] [phone] Social History Tobacco Use Types [...] 4:41 PM Results f or this RESULTS ASSOCIATE CHEMIST procedure are i n the results section. documented in this encounter Results (ABNORMAL) TXP External Lab Result (08/12/2015 4:41 PM ASSOCIATE CHEMIST) Analysis Performed At Patho logist Time Signature [...] 59 (L) >60 LABDE SCAN (if mL/min/1.7 Filipino) 3/m2 (External) GFR Estimated 48 (L) >60 [...] / / Volume Laterality 08/12/2015 4:41 PM ASSOCIATE CHEMIST Narrative JESSICA [facility]FT - 08/14/2015 9:25 AM ASSOCIATE CHEMIST Verified by Freddy Mehta on 08/14. Patient Reported LABORATORY Performing Organization Address City/State/ZIP Code Phon e Number [facility] LABDE SCAN documented in this encounter Visit Diagnoses Not on filedocumented in this encounter Care Teams Senior Sales Administrator Relationship Specialty Start Date End Date Momo Forbes PCP - General Family Practice 01/02/14 [facility] [address] [place] [address] Ingrid Santana, RN Registered Nurse Transplant 02/10/12 Joseph Quintana, Assigned Nephrology 03/29/21 MD Provider [address] [place] [address] [address] [place] [address] documented as of this encounter
--- OUTSIDE RECORDS SUMMARY | 2022-07-10 14:03 | XMS_ITS | Encounter Summary ---
:1950 Author Organization [place] Address [address] [place] [address] Care Team Providers Name Role Phone Ingrid Santana RN Unavailable Unavailable Momo Forbes Primary Care Provider Reason for Visit Reason Onset Date Comments Transplant 08/08/2014 immunosuppression ma neil Encounter Details Date Type Department Care Team Description 08/08/2014 Refill Nephrology Shiva Kahn, ventilator specialist 2nd Floor, Clinic 2A [facility] (immunosuppression Sanders Wangensteen [address] [place] [address] management) Building [address] [place] [phone] Social History Tobacco Use Types Packs/Day Years [...] to lower Prograf dose to 1.5mg BID. BOAT BUILDER SUPERVISOR Telephone Encounter - Shiva Kahn RN - 08/08/2014 5:33 PM CST ISSUE: Tacrolimus level 9.0. New target tacrolimus levels 6-8 since patient is now 6 months post kidney transplant. PLAN: Decrease Prograf dose from 2 mg twice daily to 1.5 mg twice daily. TASK: Please call patient with instructions for dose change. 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
--- OUTSIDE RECORDS SUMMARY | 2022-07-10 14:03 | XMS_ITS | Encounter Summary ---
:1950 Author Organization [place] Address [address] [place] [address] Care Team Providers Name Role Phone Ingrid Santana RN Unavailable Unavailable Momo Forbes Primary Care Provider Encounter Details Date Type Department Care Team Description 12/20/2014 Orders Only [facility], [facility] [place] [address] [phone] [place] [address] 403 [place] [address] (Wo rk) Social History Tobacco [...] Results Tacrolimus level (12/25/2014 9:45 AM CDT) [facility] Method Time Signature Tacrolimus Last 12/24/14 [facility] Dose 2130 [facility] Tacrolimus 9.5 5.0 - [facility] Level 15.0 ug/L [facility] Comment: Tacrolimus Reference Range [...] e Number [facility] [address] documented in this encounter Visit Diagnoses Not on filedocumented in this encounter Care Teams Outbound Supervisor Relationship Specialty Start Date End Date Momo Forbes PCP - General Family Practice 01/02/14 [place] [id number] Ingrid Santana, RN Registered Nurse Transplant 02/10/12 documented as of this encounter
--- OUTSIDE RECORDS SUMMARY | 2022-07-10 14:03 | XMS_ITS | Encounter Summary ---
:1950 Author Organization [place] Address [address] [place] [address] Care Team Providers Name Role Phone Ingrid Santana RN Unavailable Unavailable Momo Forbes Primary Care Provider Encounter Details Date Type Department Care Team Description 07/22/2015 Orders Only [facility] Dereck Dangelo MD [facility] Laborato ry 420 [facility] 195 500 [place], [place] [phone] [place] [address] [phone] Social History Tobacco Use Types Packs/Day Years [...] PM R esults for this MASS SPECTROMETRY REEFER TRUCK DRIVER procedure are in the results section. documented in this encounter Results Tacrolimus level (08/12/2015 4:35 PM REEFER TRUCK DRIVER) [facility] Method Time Signature Tacrolimus Last 0700 [facility] Dose 08/12/15 [facility] Tacrolimus 5.3 5.0 - [facility] Level 15.0 ug/L [facility] Comment: Tacrolimus Reference Range [...] Laterality 08/12/2015 4:35 PM 08/18/ 5 9:11 REEFER TRUCK DRIVER AM REEFER TRUCK DRIVER Mingo Dangelo MD LAB - BLOOD ORDERABLES Performing Organization Address City/State/ZIP Code Phon e Number [facility] [address] documented in this encounter Visit Diagnoses Not on filedocumented in this encounter Care Teams Travel Registered Nurse Pacu Relationship Specialty Start Date End Date Momo Forbes PCP - General Family Practice 01/02/14 [facility] 1999 [place] [address] Ingrid Santana, RN Registered Nurse Transplant 02/10/12 documented as of this encounter
--- OUTSIDE RECORDS SUMMARY | 2022-07-10 14:03 | XMS_ITS | Encounter Summary ---
:1950 Author Organization [place] Address [address] [place] [address] Care Team Providers Name Role Phone Ingrid Santana RN Unavailable Unavailable Momo Forbes Primary Care Provider Reason for Visit Reason Onset Date Comments Refill Request 02/10/2015 mycophenolate, smz/t mp Encounter Details Date Type Department Care Team Description 02/10/2015 Refill The Transplant Deysi Burns, Refill Request 2nd Floor, Clinic 2A MD (mycophenolate, Sanders Wangensteen [facility] smz/tmp) Building [address] [place] [phone] [place] [address] [place] [address] Social History Tobacco Use [...] Fill Date: 01/09/15 Last Fill Quantity: 240 [id number] Last Fill Date: 01/09/15 Last Fill Quantity: 31 Gayathri Orta [facility] [address] [facility] [address] documented in this encounter Plan of Treatment Not on filedocumented as of this encounter Visit Diagnoses Diagnosis S/P kidney transplant - Primary Kidney replaced by transplant documented in this encounter Care Teams Regulatory Specialist Relationship Specialty Start Date End Date Momo Forbes PCP - General Family Practice 01/02/[address] [address] Ingrid Santana, RN Registered Nurse Transplant 02/10/12 documented as of this encounter
--- OUTSIDE RECORDS SUMMARY | 2022-07-10 14:03 | XMS_ITS | Encounter Summary ---
:1950 Author Organization [place] Address [address] [place] [address] Care Team Providers Name Role Phone Ingrid Santana RN Unavailable Unavailable Momo Forbes Primary Care Provider Reason for Visit Reason Onset Date Comments Medication Question 01/17/2015 Encounter Details Date Type Department Care Team Description 01/17/2015 Telephone PHARMACY Beny Staton Geovanni Medication Question 500 [facility] [place] [address] PHARMACY [phone] [place] [address] Social History Tobacco Use Types [...] keep better tabs. His last to in [employer] were good but that was 8 months ago. Beny Staton [facility] Specialty Pharmacist [phone] documented in this encounter Plan of Treatment Not on filedocumented as of this encounter Visit Diagnoses Not on filedocumented in this encounter Care Teams Plate Glass Installer Helper Relationship Specialty Start Date End Date Momo Forbes PCP - General Family Practice 01/02/14 [facility] 1999 [place] [address] Ingrid Santana, RN Registered Nurse Transplant 02/10/12 documented as of this encounter
--- OUTSIDE RECORDS SUMMARY | 2022-07-10 14:03 | XMS_ITS | Encounter Summary ---
:1950 Author Organization [place] Address [address] [place] [address]. [place] [address] Care Team Providers Name Role Phone Ingrid Santana RN Unavailable Unavailable Momo Forbes Primary Care Provider Encounter Details Date Type Department Care Team Description 08/29/2015 Orders Only The Transplant Deepa Morgan Aftercare following organ tr ansplant (Primary Dx); 2nd Floor, Clinic 2A Saima Kidney replaced by transplan t; Tommy Wilburn [facility] for long-term current use of medication [address] [phone] Social History Tobacco Use Types Packs/Day Years [...] edication documented in this encounter Care Teams Brush Fabrication Supervisor Relationship Specialty Start Date End Date Momo Forbes PCP - General Family Practice 01/02/14 [facility] [address] [place] [address] Ingrid Santana RN Registered Nurse Transplant 02/10/12 documented as of this encounter
--- OUTSIDE RECORDS SUMMARY | 2022-07-10 14:03 | XMS_ITS | Encounter Summary ---
:1950 Author Organization [place] Address [address] [place] [address] Care Team Providers Name Role Phone Ingrid Santana RN Unavailable Unavailable Momo Forbes Primary Care Provider Reason for Visit Reason Onset Date Comments Refill Request 09/06/2014 Dok Plus Encounter Details Date Type Department Care Team Description 09/06/2014 Refill The Transplant Deysi Burns, Refill Request (Dok 2nd Floor, Clinic 2A MD Plus) Tommy Wilburn [phone] [place] [address] [place] [address] Social History Tobacco Use Types [...] Fill Date: 02/08/14 Quantity: 100 Michael Manuel [facility] [phone] [place] documented in this encounter Plan of Treatment Not on filedocumented as of this encounter Visit Diagnoses Diagnosis S/P kidney transplant - Primary Kidney replaced by transplant documented in this encounter Care Teams Photograph Retoucher Relationship Specialty Start Date End Date Momo Forbes PCP - General Family Practice 01/02/14 [place] [id number] Ingrid Santana, RN Registered Nurse Transplant 02/10/12 documented as of this encounter
--- OUTSIDE RECORDS SUMMARY | 2022-07-10 14:03 | XMS_ITS | Encounter Summary ---
:1950 Author Organization [place] Address [address] [place] [address] Care Team Providers Name Role Phone Ingrid Santana RN Unavailable Unavailable Momo Forbes Primary Care Provider Joseph Quintana MD Unavailable Encounter Details Date Type Department Care Team Description 08/06/2014 External Order Results The Transplant Ce nter Nurse, [facility] 2nd Floor, Clinic [address]A [address] [place] [address] Social History Tobacco Use [...] 8:39 AM Results f or this RESULTS CARDIOLOGY TECH procedure are i n the results section. documented in this encounter Results (ABNORMAL) TXP External Lab Result (08/05/2014 8:39 AM CARDIOLOGY TECH) Analysis Performed At Patho logist Time Signature [...] 55 (L) >60 LABDE SCAN (if ml/min/1.7 [place]) 3m2 (External) GFR Estimated 45 (L) >60 [...] / / Volume Laterality 08/05/2014 8:39 AM CARDIOLOGY TECH Narrative JESSICA PFT - 08/06/2014 7:40 AM CARDIOLOGY TECH Verified by Mary Whitehead on 08/06/2014. Patient Reported LABORATORY Performing Organization Address City/State/ZIP Code Phon e Number [facility] documented in this encounter Visit Diagnoses Not on filedocumented in this encounter Care Teams Construction Rigger Relationship Specialty Start Date End Date Momo Forbes PCP - General Family Practice 01/02/[address] [id number] Ingrid Santana, RN Registered Nurse Transplant 02/10/12 Joseph Quintana, Assigned Nephrology 03/29/21 MD Provider [address] [place] [address] documented as of this encounter
--- OUTSIDE RECORDS SUMMARY | 2022-07-10 14:03 | XMS_ITS | Encounter Summary ---
:1950 Author Organization [place] Address [address] [place] [address] Care Team Providers Name Role Phone Ingrid Santana RN Unavailable Unavailable Momo Forbes Primary Care Provider Encounter Details Date Type Department Care Team Description 09/22/2014 Orders Only [facility], [facility] [place] [address] [phone] [place] [address] [address] [place] [address] (Wo rk) Social History Tobacco [...] AM R esults for this MASS SPECTROMETRY MASTER HEARTH TECHNICIAN procedure are in the results section. TACROLIMUS BY TANDEM Routine 10/03/2014 8:30 AM R esults for this MASS SPECTROMETRY MASTER HEARTH TECHNICIAN procedure are in the results section. documented in this encounter Results Tacrolimus level (10/17/2014 8:15 AM MASTER HEARTH TECHNICIAN) [facility] Method Time Signature Tacrolimus Last 2029 [facility] Dose 10/16/14 [facility] Tacrolimus 9.2 5.0 - [facility] Level 15.0 ug/L [facility] Comment: Tacrolimus Reference Range Kidney [...] its perform ance characteristics determined by the [facility], ??Special Chemistry Laboratory. It has not been cleared or approved by the FDA . The laboratory is regulated under CLIA as qualified to perform high-complexity testing. This test is used for clinical purposes. It should not be regarded as investigational or for research. Specimen Anatomical Collection Method Collection Time Receive d Time (Source) Location / / Volume Laterality 10/17/2014 8:15 AM 5 MASTER HEARTH TECHNICIAN 11:17 AM MASTER HEARTH TECHNICIAN Mingo Dangelo MD LAB - BLOOD ORDERABLES Performing Organization Address City/State/ZIP Code Phon e Number [facility] 500 [place], [place] [phone] [place] [address] Tacrolimus level (10/03/2014 8:30 AM MASTER HEARTH TECHNICIAN) [facility] Method Time Signature Tacrolimus Last 10/02/14 [facility] Dose 2030 [facility] Tacrolimus 7.4 5.0 - [facility] 15.0 ug/L [facility] Comment: Tacrolimus Reference Range Kidney [...] its perform ance characteristics determined by the [facility], ??Special Chemistry Laboratory. It has not been cleared or approved by the FDA . The laboratory is regulated under CLIA as qualified to perform high-complexity testing. This test is used for clinical purposes. It should not be regarded as investigational or for research. Specimen Anatomical Collection Method Collection Time Receive d Time (Source) Location / / Volume Laterality 10/03/2014 8:30 AM 5 MASTER HEARTH TECHNICIAN 11:09 AM MASTER HEARTH TECHNICIAN Mingo Dangelo MD LAB - BLOOD ORDERABLES Performing Organization Address City/State/ZIP Code Phon e Number [facility] 500 [place], [place] [phone] [place] [address] documented in this encounter Visit Diagnoses Not on filedocumented in this encounter Care Teams Smoke Jumper Relationship Specialty Start Date End Date Momo Forbes PCP - General Family Practice 01/02/14 [facility] [address] [place] [address] Ingrid Santana, RN Registered Nurse Transplant 02/10/12 documented as of this encounter
--- OUTSIDE RECORDS SUMMARY | 2022-07-10 14:03 | XMS_ITS | Encounter Summary ---
:1950 Author Organization [place] Address [facility] [place] [address] Care Team Providers Name Role Phone Ingrid Santana RN Unavailable Unavailable Momo Forbes Primary Care Provider Encounter Details Date Type Department Care Team Description 10/18/2014 External Order Results The Transplant Ce nter Nurse, [facility] 2nd Floor, Clinic [address]A [address] [phone] Social History Tobacco Use Types [...] 8:15 AM Results f or this RESULTS SHELL COREMAKER procedure are i n the results section. documented in this encounter Results (ABNORMAL) TXP External Lab Result (10/17/2014 8:15 AM SHELL COREMAKER) Analysis Performed At Patho logist Time Signature [...] 56 (L) >60 LABDE SCAN (if ml/min/1.7 Portuguese) 3m2 (External) GFR Estimated 46 (L) >60 [...] / / Volume Laterality 10/17/2014 8:15 AM SHELL COREMAKER Narrative JESSICA PFT - 10/18/2014 8:50 AM SHELL COREMAKER Verified by Maribel Plunkett on 10/18/19 15. Patient Reported LABORATORY Performing Organization Address City/State/ZIP Code Phon e Number [facility] documented in this encounter Visit Diagnoses Not on filedocumented in this encounter Care Teams Concrete Layer Relationship Specialty Start Date End Date Momo Forbes PCP - General Family Practice 01/02/14 [facility] [address] [place] [address] Ingrid Santana, RN Registered Nurse Transplant 02/10/12 documented as of this encounter
--- OUTSIDE RECORDS SUMMARY | 2022-07-10 14:03 | XMS_ITS | Encounter Summary ---
:1950 Author Organization [place] Address [address] [place] [address] Care Team Providers Name Role Phone Ingrid Santana RN Unavailable Unavailable Momo Forbes Primary Care Provider Reason for Visit Reason Onset Date Comments Medication Question 10/11/2014 Encounter Details Date Type Department Care Team Description 10/11/2014 Telephone PHARMACY Beny Staton Geovanni Medication Question 500 [facility] [place] [address] PHARMACY [phone] [place] [address] Social History Tobacco Use Types [...] is 8 months post-transplant. Medication adherence plan: SDId pillbox Are you having any issues managing [...] activity before he checks it. Beny Staton [facility] Specialty Pharmacist [phone] DENCE SUPERVISOR documented in this encounter Plan of Treatment Not on filedocumented as of this encounter Visit Diagnoses Not on filedocumented in this encounter Care Teams Systems Coordinator Relationship Specialty Start Date End Date Momo Forbes PCP - General Family Practice 01/02/14 [place] [id number] Ingrid Santana, RN Registered Nurse Transplant 02/10/12 documented as of this encounter
--- OUTSIDE RECORDS SUMMARY | 2022-07-10 14:03 | XMS_ITS | Encounter Summary ---
:1950 Author Organization [place] Address [address] [place] [address] Care Team Providers Name Role Phone Ingrid Santana RN Unavailable Unavailable Momo Forbes Primary Care Provider Encounter Details Date Type Department Care Team Description 08/22/2014 Orders Only [facility], Joseph Conor [facility] jm [place] 500 [facility] [address] [place] [address] [phone] [place] [address] 617 [place] [address] (Wo rk) Social History Tobacco [...] Res ults for this MASS SPECTROMETRY AM FISHING LURE ASSEMBLER procedure are in the results section. documented in this encounter Results Tacrolimus level (08/26/2014 10:21 AM FISHING LURE ASSEMBLER) [facility] Method Time Signature Tacrolimus Last 08/25/14 [facility] Dose 2030 [facility] Tacrolimus 6.6 5.0 - [facility] Level 15.0 ug/L [facility] Comment: Tacrolimus Reference Range Kidney Transplant Pediatric [...] / Volume Laterality 08/26/2014 10:21 08/28/2014 AM FISHING LURE ASSEMBLER 11:34 AM FISHING LURE ASSEMBLER Mingo Dangelo MD LAB - BLOOD ORDERABLES Performing Organization Address City/State/ZIP Code Phon e Number [facility] [address] documented in this encounter Visit Diagnoses Not on filedocumented in this encounter Care Teams Vessel Ordinary Seaman Relationship Specialty Start Date End Date Momo Forbes PCP - General Family Practice 01/02/14 [facility] 1999 [place] [address] Ingrid Santana, RN Registered Nurse Transplant 02/10/12 documented as of this encounter
--- OUTSIDE RECORDS SUMMARY | 2022-07-10 14:03 | XMS_ITS | Encounter Summary ---
:1950 Author Organization [place] Address [facility] [place] [address] Care Team Providers Name Role Phone Ingrid Santana RN Unavailable Unavailable Momo Forbes Primary Care Provider Reason for Visit Reason Onset Date Comments Refill Request 06/23/2015 amlodipine Encounter Details Date Type Department Care Team Description 06/23/2015 Refill [facility] [address] Refill Request Physicians Orestes Hernandez MD (amlodipine) [facility] Building [place] 4th Floor, Clinic 4B [address] [phone] (Wo rk) [address] [phone] Social History Tobacco Use Types Packs/Day Years [...] 05/13/14 139/73 04/09/14 163/78 Ada You Cpht [facility] [phone] T AND OATS FLAKE MILLER documented in this encounter Plan of Treatment Not on filedocumented as of this encounter Visit Diagnoses Diagnosis HTN (hypertension) - Primary Unspecified essential hypertension documented in this encounter Care Teams Sheet Rock Installer Relationship Specialty Start Date End Date Momo Forbes PCP - General Family Practice 01/02/[address] [address] Ingrid Santana, RN Registered Nurse Transplant 02/10/12 documented as of this encounter
--- OUTSIDE RECORDS SUMMARY | 2022-07-10 14:03 | XMS_ITS | Encounter Summary ---
:1950 Author Organization [place] Address [address] [place] [address] Care Team Providers Name Role Phone Ingrid Santana RN Unavailable Unavailable Momo Forbes Primary Care Provider oJseph Quintana MD Unavailable Encounter Details Date Type Department Care Team Description 07/31/2014 External Order Results The Transplant Ce nter Nurse, [facility] 2nd Floor, Clinic [address]A [address] [address] Social History Tobacco Use Types [...] 8:25 AM Results f or this RESULTS EXPLOSIVE ORDNANCE MANAGER procedure are i n the results section. documented in this encounter Results (ABNORMAL) TXP External Lab Result (07/29/2014 8:25 AM EXPLOSIVE ORDNANCE MANAGER) [facility] Method Time Signature [...] / / Volume Laterality 07/29/2014 8:25 AM EXPLOSIVE ORDNANCE MANAGER Narrative [facility] - 07/31/2014 2:47 PM EXPLOSIVE ORDNANCE MANAGER Verified by Nazia Duncan on 07/31/2014. Verified by Freddy Mehta on 07/31. Patient Reported LABORATORY Performing Organization Address City/State/ZIP Code Phon e Number [facility]DE [facility] documented in this encounter Visit Diagnoses Not on filedocumented in this encounter Care Teams Soil Chemist Relationship Specialty Start Date End Date Momo Forbes PCP - General Family Practice 01/02/14 [facility] 2000 [place] [address] nIgrid Santana, RN Registered Nurse Transplant 02/10/12 Joseph Quintana, Assigned Nephrology 03/29/21 MD Provider [address] [place] [address] 1932 [place], [place] [address] documented as of this encounter
--- OUTSIDE RECORDS SUMMARY | 2022-07-10 14:03 | XMS_ITS | Encounter Summary ---
:1950 Author Organization [place] Address [facility] [place] [address] Care Team Providers Name Role Phone Ingrid Santana RN Unavailable Unavailable Momo Forbes Primary Care Provider Encounter Details Date Type Department Care Team Description 10/04/2014 External Order Results The Transplant Ce nter Nurse, [facility] 2nd Floor, Clinic [address]A [address] [address] Social History Tobacco Use Types [...] 8:33 AM Results f or this RESULTS SWING FRAME GRINDER OPERATOR procedure are i n the results section. documented in this encounter Results (ABNORMAL) TXP External Lab Result (10/03/2014 8:33 AM SWING FRAME GRINDER OPERATOR) Analysis Performed At Patho logist Time [...] 57 (L) >60 LABDE SCAN (if ml/min/1.7 [place] Islander) 3m2 (External) GFR Estimated 47 (L) >60 [...] / / Volume Laterality 10/03/2014 8:33 AM SWING FRAME GRINDER OPERATOR Narrative ZACHERYTYLER PFT - 10/04/2014 8:51 AM SWING FRAME GRINDER OPERATOR Verified by Josseline Palma on 5. Patient Reported LABORATORY Performing Organization Address City/State/ZIP Code Phon e Number [facility] documented in this encounter Visit Diagnoses Not on filedocumented in this encounter Care Teams Meat Butcher Relationship Specialty Start Date End Date Momo Forbes PCP - General Family Practice 01/02/14 [facility] [address] [place] [address] Ingrid Santana, RN Registered Nurse Transplant 02/10/12 documented as of this encounter
--- OUTSIDE RECORDS SUMMARY | 2022-07-10 14:03 | XMS_ITS | Encounter Summary ---
:1950 Author Organization [place] Address [facility] [place] [address] Care Team Providers Name Role Phone Ingrid Santana RN Unavailable Unavailable Momo Forbes Primary Care Provider Reason for Visit Reason Onset Date Comments Patient Reminder 08/28/2015 Encounter Details Date Type Department Care Team Description 08/28/2015 Telephone Nephrology Yesenia Clements LPN Patient Reminder 2nd Floor, Clinic 2A [place] [phone] Social History Tobacco Use Types Packs/Day [...] Patient confirmed and understood. Yesenia Clements CMA Y PROCESSOR documented in this encounter Plan of Treatment Not on filedocumented as of this encounter Visit Diagnoses Not on filedocumented in this encounter Care Teams Fitness Coordinator Relationship Specialty Start Date End Date Momo Forbes PCP - General Family Practice 01/02/14 [facility] [address] [place] [address] Ingrid Santana, RN Registered Nurse Transplant 02/10/12 documented as of this encounter
--- OUTSIDE RECORDS SUMMARY | 2022-07-10 14:04 | XMS_ITS | Encounter Summary ---
:1950 Author Organization [place] Address [address] [place] [address]. [place] [address] Care Team Providers Name Role Phone Ingrid Santana RN Unavailable Unavailable Momo Forbes Primary Care Provider Reason for Visit Reason Onset Date Comments Patient Reminder 05/09/2014 Encounter Details Date Type Department Care Team Description 05/09/2014 Telephone Nephrology Yesenia Clements LPN Patient Reminder 2nd Floor, Clinic [address]A [address] [phone] Social History Tobacco Use [...] medications list or current medication bottles. Yesenia Clmeents CMA documented in this encounter Plan of Treatment Not on filedocumented as of this encounter Visit Diagnoses Not on filedocumented in this encounter Care Teams Naval Gunfire Spotter Relationship Specialty Start Date End Date Momo Forbes PCP - General Family Practice 01/02/14 [facility] [address] [place] [address] Ingrid Santana, RN Registered Nurse Transplant 02/10/12 documented as of this encounter
--- OUTSIDE RECORDS SUMMARY | 2022-07-10 14:04 | XMS_ITS | Encounter Summary ---
:1950 Author Organization [place] Address [address] [place] [address] Care Team Providers Name Role Phone Ingrid Santana RN Unavailable Unavailable Momo Forbes Primary Care Provider Joseph Quintana MD Unavailable Encounter Details Date Type Department Care Team Description 07/25/2014 External Order Results The Transplant Ce nter Nurse, [facility] 2nd Floor, Clinic [address]A [address] [place] [address] Social History Tobacco Use Types [...] 8:22 AM Results f or this RESULTS MILLWRIGHT INSTRUCTOR procedure are i n the results section. documented in this encounter Results (ABNORMAL) TXP External Lab Result (07/22/2014 8:22 AM MILLWRIGHT INSTRUCTOR) Analysis Performed At Patho logist Time [...] 52 (L) >60 LABDE SCAN (if ml/min/1.7 Azerbaijani) 3m2 (External) GFR Estimated 43 (L) >60 [...] / / Volume Laterality 07/22/2014 8:22 AM MILLWRIGHT INSTRUCTOR Narrative JESSICA PFT - 07/25/2014 6:19 AM MILLWRIGHT INSTRUCTOR Verified by Janee Alexis on 07/25/2014 . Patient Reported LABORATORY Performing Organization Address City/State/ZIP Code Phon e Number [facility] LABDE SCAN documented in this encounter Visit Diagnoses Not on filedocumented in this encounter Care Teams Data Keyer Relationship Specialty Start Date End Date Momo Forbes PCP - General Family Practice 01/02/14 [facility] [address] [place] [phone] Ingrid Santana, RN Registered Nurse Transplant 02/10/12 Joseph Quintana, Assigned Nephrology 03/29/21 MD Provider [address] [place] [address] documented as of this encounter
--- OUTSIDE RECORDS SUMMARY | 2022-07-10 14:04 | XMS_ITS | Encounter Summary ---
:1950 Author Organization [place] Address [facility] [place] [address] Care Team Providers Name Role Phone Ingrid Santana RN Unavailable Unavailable Momo Forbes Primary Care Provider Reason for Visit Reason Comments RECHECK 3 month Tx follow Up Encounter Details Date Type Department Care Team Description 05/13/2014 Office Visit Nephrology Deysi Alicea, DM (diabetes mellitus), type 2 (H) (Primary Dx); 2nd Floor, Clinic 2A MD S/P kidney transplant Tommy Wilburn [address] [place] [address] (Wo rk) [phone] [phone] Social History Tobacco Use Types Packs/Day Years [...] discharged on Cumadin; Cumadin was stopped by journeyman machinist during the follow up visit, as he [...] Years of Education: 14 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
--- OUTSIDE RECORDS SUMMARY | 2022-07-10 14:04 | XMS_ITS | Encounter Summary ---
:1950 Author Organization [place] Address [facility] [place] [address] Care Team Providers Name Role Phone Ingrid Santana RN Unavailable Unavailable Momo Forbes Primary Care Provider Encounter Details Date Type Department Care Team Description 06/07/2014 External Order Results The Transplant Ce nter Nurse, [facility] 2nd Floor, Clinic [address]A [address] [address] Social History Tobacco Use Types [...] External Lab Result (06/05/2014 8:30 AM CDT) [facility] Method Time Signature Sodium (External) [...] filedocumented in this encounter Care Teams Fitness Floor Attendant Relationship Specialty Start Date End Date Momo Forbes PCP - General Family Practice 01/02/14 [facility] [address] [place] [address] Ingrid Santana, RN Registered Nurse Transplant 02/10/12 2 documented as of this encounter
--- OUTSIDE RECORDS SUMMARY | 2022-07-10 14:04 | XMS_ITS | Encounter Summary ---
:1950 Author Organization [place] Address [address] [place] [address] Care Team Providers Name Role Phone Ingrid Santana RN Unavailable Unavailable Momo Forbes Primary Care Provider Joseph Quintana MD Unavailable Encounter Details Date Type Department Care Team Description 05/16/2014 External Order Results The Transplant Ce nter Nurse, [facility] 2nd Floor, Clinic [address]A [address] [place] [address] Social History Tobacco Use Types [...] Estimated >60 >60 LABDE SCAN (if ml/min/1.7 British) 3m2 (External) GFR Estimated 52 (L) >60 [...] filedocumented in this encounter Care Teams Front Maker Lockstitch Relationship Specialty Start Date End Date Momo Forbes PCP - General Family Practice 01/02/14 [facility] [address] [place] [address] Ingrid Santana, RN Registered Nurse Transplant 02/10/12 Joseph Quintana, Assigned Nephrology 03/29/21 MD Provider [address] [place] [address] documented as of this encounter
--- OUTSIDE RECORDS SUMMARY | 2022-07-10 14:04 | XMS_ITS | Encounter Summary ---
:1950 Author Organization [place] Address [address] [place] [address] Care Team Providers Name Role Phone Ingrid Santana RN Unavailable Unavailable Momo Forbes Primary Care Provider Encounter Details Date Type Department Care Team Description 05/22/2014 Orders Only [facility], Joseph Conor [facility], [facility] jm [place] [address] [phone] [place] [address] 914 [place] [address] (Wo rk) Social History Tobacco [...] Results Tacrolimus level (06/17/2014 8:05 AM CDT) [facility] gist Method Time Signature Tacrolimus Last 06/16/14 [facility] Dose 2000 [facility] Tacrolimus 6.5 5.0 - [facility] Level 15.0 ug/L [facility] Comment: Tacrolimus Reference Range Kidney [...] [facility] [address] [place] [address] [facility] LABS Tacrolimus level (06/10/2014 7:52 AM CDT) [facility] gist Method Time Signature Tacrolimus Last 1999 [facility] Dose 06/09/[address] [facility] LABS Tacrolimus 7.9 5.0 - [facility] Level 15.0 ug/L [facility] [...] [facility] [address] [place] [address] [facility] LABS Tacrolimus level (06/05/2014 8:28 AM CDT) [facility] gist Method Time Signature Tacrolimus Last 1999 [facility] Dose 06/04/[address] [facility] LABS Tacrolimus 7.9 5.0 - [facility] Level 15.0 ug/L [facility] [...] [facility]/ZIP Code Phon e Number [facility] [address] LABS Tacrolimus level (05/24/2014 8:05 AM CDT) [facility] gist Method Time Signature Tacrolimus 05/23/14 [facility] Last Dose 20:[address] [facility] LABS Tacrolimus Test 5.0 - [facility] Level canceled - 15.0 ug/L [place] [facility] LABS entry error Specimen Anatomical Collection Method Collection Time Receive d Time (Source) Location / / Volume Laterality 05/24/2014 8:05 AM 4 2:49 CDT PM CDT Deysi Alicea MD LAB - BLOOD ORDERABLES Performing Organization Address City/[facility]/ZIP Code Phon e Number [facility] [address] LABS Tacrolimus level (05/24/2014 8:05 AM CDT) [facility] gist Method Time Signature Tacrolimus Last 05/23/14 [facility] Dose 20:[address] [facility] LABS Tacrolimus 5.8 5.0 - [facility] Level 15.0 ug/L [facility]I [...] [facility] [address] LABS documented in this encounter Visit Diagnoses Not on filedocumented in this encounter Care Teams Chisel Mortiser Operator Relationship Specialty Start Date End Date Momo Forbes PCP - General Family Practice 01/02/14 [facility] [address] [place] [address] Ingrid Santana, RN Registered Nurse Transplant 02/10/12 documented as of this encounter
--- OUTSIDE RECORDS SUMMARY | 2022-07-10 14:04 | XMS_ITS | Encounter Summary ---
:1950 Author Organization [place] Address [address] [place] [address] Care Team Providers Name Role Phone Ingrid Santana RN Unavailable Unavailable Momo Forbes Primary Care Provider Joseph Quintana MD Unavailable Encounter Details Date Type Department Care Team Description 07/17/2014 External Order Results The Transplant Ce nter Nurse, [facility] 2nd Floor, Clinic [address]A [address] [place] [address] Social History Tobacco Use Types [...] 8:28 AM Results f or this RESULTS BAFFLE INSTALLER procedure are i n the results section. documented in this encounter Results (ABNORMAL) TXP External Lab Result (07/15/2014 8:28 AM BAFFLE INSTALLER) Analysis Performed At Patho logist Time [...] 60 (L) >60 LABDE SCAN (if ml/min/1.7 Swazi) 3m2 (External) GFR Estimated 49 (L) >60 [...] / / Volume Laterality 07/15/2014 8:28 AM BAFFLE INSTALLER Narrative JESSICA PFT - 07/17/2014 8:35 AM BAFFLE INSTALLER Verified by Maribel Plunkett on 07/17/20 14. Patient Reported LABORATORY Performing Organization Address City/State/ZIP Code Phon e Number [facility] LABDE SCAN documented in this encounter Visit Diagnoses Not on filedocumented in this encounter Care Teams Kiln Packer Relationship Specialty Start Date End Date Momo Forbes PCP - General Family Practice 01/02/14 [place] [address] Ingrid Santana, RN Registered Nurse Transplant 02/10/12 Joseph Quintana, Assigned Nephrology 03/29/21 MD Provider [address] [place] [id number] documented as of this encounter
--- OUTSIDE RECORDS SUMMARY | 2022-07-10 14:04 | XMS_ITS | Encounter Summary ---
:1950 Author Organization [place] Address [address] [place] [address] Care Team Providers Name Role Phone Ingrid Santana RN Unavailable Unavailable Momo Forbes Primary Care Provider Reason for Visit Reason Onset Date Comments Medication Question 07/26/2014 Encounter Details Date Type Department Care Team Description 07/26/2014 Telephone PHARMACY Duncan, Fina, RPH Medication Question 500 [facility] [place] [address] 712 [facility] [phone] [place] [address] Social History Tobacco Use Types [...] very well healthy and happy Beny [facility] Specialty Pharmacist [phone] E EXAMINER documented in this encounter Plan of Treatment Not on filedocumented as of this encounter Visit Diagnoses Not on filedocumented in this encounter Care Teams Rn Care Transition Relationship Specialty Start Date End Date Momo Forbes PCP - General Family Practice 01/02/14 [facility] [address] [place] [address] Ingrid Santana, RN Registered Nurse Transplant 02/10/12 documented as of this encounter
--- OUTSIDE RECORDS SUMMARY | 2022-07-10 14:04 | XMS_ITS | Encounter Summary ---
:1950 Author Organization [place] Address [facility] [place] [address] Care Team Providers Name Role Phone Ingrid Santana RN Unavailable Unavailable Momo Forbes Primary Care Provider Reason for Visit Reason Comments Heart Problem 6 week F/U Encounter Details Date Type Department Care Team Description 05/14/2014 [facility] Un[facility] es sential [place] [facility] Kei Hernandez, shanon carey (Primary Heart MD Dx) [facility] [place] 4th Floor, Clinic 4B [address] [facility] [address] [phone] [place], [place] (Work) [address] [phone] Social History Tobacco Use Types Packs/Day Years [...] questions or concerns. Rubi Howell RN Cardiology Survey Research Manager documented in this encounter Progress Notes Kei [...] ramirez documented in this encounter Care Teams Tab Machine Operator Relationship Specialty Start Date End Date Momo Forbes PCP - General Family Practice 01/02/14 [place] [phone] Ingrid Santana, RN Registered Nurse Transplant 02/10/12 documented as of this encounter
--- OUTSIDE RECORDS SUMMARY | 2022-07-10 14:04 | XMS_ITS | Encounter Summary ---
:1950 Author Organization [place] Address [facility] [place] [address] Care Team Providers Name Role Phone Ingrid Santana RN Unavailable Unavailable Momo Forbes Primary Care Provider Encounter Details Date Type Department Care Team Description 05/10/2014 Orders Only Nephrology Shiva Kahn RN -donor kidney 2nd Floor, Clinic 2A [facility] transplant recipient Tommy Ruizfelisa [address] [place] [address] (Primary Dx) Building [address] [place] [address] [phone] Social History Tobacco Use Types Packs/Day Years [...] transplant documented in this encounter Care Teams Risk And Insurance Manager Relationship Specialty Start Date End Date Momo Forbes PCP - General Family Practice 01/02/[address] [address] Ingrid Santana RN Registered Nurse Transplant 02/10/12 documented as of this encounter
--- OUTSIDE RECORDS SUMMARY | 2022-07-10 14:04 | XMS_ITS | Encounter Summary ---
:1950 Author Organization [place] Address [address] [place] [address] Care Team Providers Name Role Phone Ingrid Santana RN Unavailable Unavailable Momo Forbes Primary Care Provider Joseph Quintana MD Unavailable Encounter Details Date Type Department Care Team Description 06/08/2014 External Order Results The Transplant Ce nter Nurse, [facility] 2nd Floor, Clinic 2A [address] [place] [address] Social History Tobacco Use Types [...] External Lab Result (06/05/2014 8:30 AM CDT) [facility] [place] [facility] Method Time Signature Sodium (External) 138 [...] filedocumented in this encounter Care Teams Physician In Private Practice Relationship Specialty Start Date End Date Momo Forbes PCP - General Family Practice 01/02/14 [facility] [address] [place] [address] Ingrid Santana, RN Registered Nurse Transplant 02/10/12 Joseph Quintana, Assigned Nephrology 03/29/21 MD Provider [address] [place] [address] [address] [place] [address] documented as of this encounter
--- OUTSIDE RECORDS SUMMARY | 2022-07-10 14:04 | XMS_ITS | Encounter Summary ---
:1950 Author Organization [place] Address [facility] [place] [address] Care Team Providers Name Role Phone Ingrid aSntana RN Unavailable Unavailable Momo Forbes Primary Care Provider Reason for Visit Reason Onset Date Comments Transplant 06/20/2014 FK 6.6 Encounter Details Date Type Department Care Team Description 06/20/2014 Telephone Nephrology Carmelita Rosario, Transplant (FK 6.6) 2nd Floor, Clinic 2A [place] [phone] Social History Tobacco Use Types Packs/Day [...] transplant documented in this encounter Care Teams It Administrator Relationship Specialty Start Date End Date Momo Forbes PCP - General Family Practice 01/02/[address] [address] Ingrid Santana, RN Registered Nurse Transplant 02/10/12 documented as of this encounter
--- OUTSIDE RECORDS SUMMARY | 2022-07-10 14:04 | XMS_ITS | Encounter Summary ---
:1950 Author Organization [place] Address [address] [place] [address] Care Team Providers Name Role Phone Ingrid Santana RN Unavailable Unavailable Momo Forbes Primary Care Provider Encounter Details Date Type Department Care Team Description 06/22/2014 Orders Only [facility], Joseph Conor [facility] jm [place] [address] [phone] [place] [address] 797 [place] [address] (Wo rk) Social History Tobacco [...] AM R esults for this MASS SPECTROMETRY ESCALATOR ATTENDANT procedure are in the results section. TACROLIMUS BY TANDEM Routine 07/08/2014 8:15 AM R esults for this MASS SPECTROMETRY ESCALATOR ATTENDANT procedure are in the results section. TACROLIMUS BY TANDEM Routine 07/01/2014 8:25 AM R esults for this MASS SPECTROMETRY ESCALATOR ATTENDANT procedure are in the results section. TACROLIMUS BY TANDEM Routine 06/24/2014 8:30 AM R esults for this MASS SPECTROMETRY ESCALATOR ATTENDANT procedure are in the results section. documented in this encounter Results Tacrolimus level (07/15/2014 8:25 AM ESCALATOR ATTENDANT) [place] [facility] gist Method Time Signature Tacrolimus Last 07/14/14 [facility] Dose 2000 [facility] Tacrolimus 8.1 5.0 - [facility] Level 15.0 ug/L [facility] Comment: Tacrolimus Reference Range Kidney Transplant [...] / Volume Laterality 07/15/2014 8:25 AM 4 ESCALATOR ATTENDANT 10:56 AM ESCALATOR ATTENDANT Deysi Alicea MD LAB - BLOOD ORDERABLES Performing Organization Address City/State/ZIP Code Phon e Number [facility] [address] [place] [address] [facility] Tacrolimus level (07/08/2014 8:15 AM ESCALATOR ATTENDANT) [facility] gist Method Time Signature Tacrolimus Last 2000 [facility] Dose 07/07/14 [facility] Tacrolimus 8.6 5.0 - [facility] Level 15.0 ug/L [facility] Comment: Tacrolimus Reference Range Kidney Transplant [...] / Volume Laterality 07/08/2014 8:15 AM 4 ESCALATOR ATTENDANT 11:03 AM ESCALATOR ATTENDANT Deysi Alicea MD LAB - BLOOD ORDERABLES Performing Organization Address City/State/ZIP Code Phon e Number [facility] [address] [place] [address] [facility] LABS Tacrolimus level (07/01/2014 8:25 AM ESCALATOR ATTENDANT) [facility] gist Method Time Signature Tacrolimus Last 1999, [facility] Dose 06/30/14 [facility] Tacrolimus 9.3 5.0 - [facility] Level 15.0 ug/L [facility] Comment: Tacrolimus Reference Range Kidney [...] / Volume Laterality 07/01/2014 8:25 AM 4 ESCALATOR ATTENDANT 12:11 PM ESCALATOR ATTENDANT Mingo Dangelo MD LAB - BLOOD ORDERABLES Performing Organization Address City/State/ZIP Code Phon e Number [facility] [address] [place] [address] [facility] Tacrolimus level (06/24/2014 8:30 AM ESCALATOR ATTENDANT) [place] [facility] gist Method Time Signature Tacrolimus Last 1999 [facility] Dose 06/23/14 [facility] Tacrolimus 10.5 5.0 - [facility] Level 15.0 ug/L [facility] Comment: Tacrolimus Reference Range Kidney Transplant [...] / Volume Laterality 06/24/2014 8:30 AM 4 ESCALATOR ATTENDANT 11:18 AM ESCALATOR ATTENDANT Deysi Alicea MD LAB - BLOOD ORDERABLES Performing Organization Address City/State/ZIP Code Phon e Number [facility] [address] [place] [address] [facility] documented in this encounter Visit Diagnoses Not on filedocumented in this encounter Care Teams Motorcycle Racer Relationship Specialty Start Date End Date Momo Forbes PCP - General Family Practice 01/02/14 [facility] [address] [place] [address] Ingrid Santana, RN Registered Nurse Transplant 02/10/12 documented as of this encounter
--- OUTSIDE RECORDS SUMMARY | 2022-07-10 14:04 | XMS_ITS | Encounter Summary ---
:1950 Author Organization [place] Address [facility] [place] [address] Care Team Providers Name Role Phone Ingrid Santana RN Unavailable Unavailable Momo Forbes Primary Care Provider Encounter Details Date Type Department Care Team Description 06/10/2014 External Order Results The Transplant Ce nter Nurse, [facility] 2nd Floor, Clinic 2A [address] [phone] Social History Tobacco Use Types [...] 60 (L) >60 LABDE SCAN (if ml/min/1.7 Paraguayan) 3m2 (External) GFR Estimated 49 (L) >60 [...] filedocumented in this encounter Care Teams Data Processor Relationship Specialty Start Date End Date Momo Forbes PCP - General Family Practice 01/02/14 [facility] [address] [place] [address] Ingrid Santana, RN Registered Nurse Transplant 02/10/12 documented as of this encounter
--- OUTSIDE RECORDS SUMMARY | 2022-07-10 14:04 | XMS_ITS | Encounter Summary ---
:1950 Author Organization [place] Address [facility] [place] [address] Care Team Providers Name Role Phone Ingrid Santana RN Unavailable Unavailable Momo Forbes Primary Care Provider Encounter Details Date Type Department Care Team Description 06/17/2014 External Order Results The Transplant Ce nter Nurse, [facility] 2nd Floor, Clinic 2A [address] [phone] Social History Tobacco Use Types [...] 57 (L) >60 LABDE SCAN (if ml/min/1.7 Italian) 3m2 (External) GFR Estimated 47 (L) >60 [...] filedocumented in this encounter Care Teams Aircraft Maintenance Engineer Relationship Specialty Start Date End Date Momo Forbes PCP - General Family Practice 01/02/14 [facility] [address] [place] [phone] Ingrid Santana, RN Registered Nurse Transplant 02/10/12 documented as of this encounter
--- OUTSIDE RECORDS SUMMARY | 2022-07-10 14:04 | XMS_ITS | Encounter Summary ---
:1950 Author Organization [place] Address [address] [place] [address] Care Team Providers Name Role Phone Ingrid Santana RN Unavailable Unavailable Momo Forbes Primary Care Provider Joseph Quintana MD Unavailable Encounter Details Date Type Department Care Team Description 05/27/2014 External Order Results The Transplant Ce nter Nurse, [facility] 2nd Floor, Clinic 2A [address] [place] [address] Social History Tobacco Use Types [...] Estimated >60 >60 LABDE SCAN (if ml/min/1.7 Botswanan) 3m2 (External) GFR Estimated 52 (L) >60 [...] on filedocumented in this encounter Care Teams Radioactive Waste Disposal Dispatcher Relationship Specialty Start Date End Date Momo Forbes PCP - General Family Practice 01/02/14 [facility] [address] [place], [place] [phone] Ingrid Santana, RN Registered Nurse Transplant 02/10/12 Joseph Quintana, Assigned Nephrology 03/29/21 MD Provider [address] [place] [address] documented as of this encounter
--- OUTSIDE RECORDS SUMMARY | 2022-07-10 14:04 | XMS_ITS | Encounter Summary ---
:1950 Author Organization [place] Address [address] [place] [address] Care Team Providers Name Role Phone Ingrid Santana RN Unavailable Unavailable Momo Forbes Primary Care Provider Encounter Details Date Type Department Care Team Description 07/22/2014 Orders Only [facility], [facility], [facility] 500 [facility] [address] [place] [address] [phone] [place] [address] 226 [place] [address] (Wo rk) Social History Tobacco [...] AM Resul ts for this SINGLE ANTIGEN CAPACITY PLANNING ENGINEER procedure are in the results section. HLA LUKASZ CLASS I Routine 07/29/2014 8:20 AM Result s for this SINGLE ANTIGEN CAPACITY PLANNING ENGINEER procedure are in the results section. TACROLIMUS BY TANDEM Routine 07/29/2014 8:20 AM R esults for this MASS SPECTROMETRY CAPACITY PLANNING ENGINEER procedure are in the results section. TACROLIMUS BY TANDEM Routine 07/22/2014 8:20 AM R esults for this MASS SPECTROMETRY CAPACITY PLANNING ENGINEER procedure are in the results section. documented in this encounter Results HLA Lukasz Class II Single Antigen (07/29/2014 8:20 AM CAPACITY PLANNING ENGINEER) [employer]ek[employer] Method Time Signature SA2 Test SA HI [...] Volume Laterality 07/29/2014 8:20 AM 4 3:26 CAPACITY PLANNING ENGINEER PM CAPACITY PLANNING ENGINEER Deysi Alicea MD LAB - IMMUNOLOGY ORDERABLES Performing Organization Address [facility] Phon e Number U HLA [facility]ORATORY Immunology/Histocompatabil [place], [place] [address] [facility] 500 [facility], Room 3-580 HISTOTRAC HLA Lukasz Class I Single Antigen (07/29/2014 8:20 AM CAPACITY PLANNING ENGINEER) OneWire Method Time Signature SA1 Test SA HI [...] Volume Laterality 07/29/2014 8:20 AM 4 3:26 CAPACITY PLANNING ENGINEER PM CAPACITY PLANNING ENGINEER Deysi Alicea MD LAB - IMMUNOLOGY ORDERABLES Performing Organization Address [facility] Phon e Number U HLA LABORATORY Immunology/Histocompatabil [place], [place] [address] [facility] 500 [facility] [address] Building, Room 3-580 HISTOTRAC Tacrolimus level (07/29/2014 8:20 AM CAPACITY PLANNING ENGINEER) [facility] gist Method Time Signature Tacrolimus Last 1999 [facility] Dose 07/28/14 [facility] Tacrolimus 10.5 5.0 - [facility] Level 15.0 ug/L [facility] Comment: Tacrolimus Reference Range [...] / Volume Laterality 07/29/2014 8:20 AM 4 CAPACITY PLANNING ENGINEER 11:17 AM CAPACITY PLANNING ENGINEER Deysi Alicea MD LAB - BLOOD ORDERABLES Performing Organization Address City/State/ZIP Code Phon e Number [facility] 500 [place] [address] [facility] Tacrolimus level (07/22/2014 8:20 AM CAPACITY PLANNING ENGINEER) [facility] gist Method Time Signature Tacrolimus Last 1929 [facility] Dose 07/21/14 [facility] Tacrolimus 10.8 5.0 - [facility] Level 15.0 ug/L [facility] Comment: Tacrolimus Reference Range [...] / Volume Laterality 07/22/2014 8:20 AM 4 CAPACITY PLANNING ENGINEER 11:45 AM CAPACITY PLANNING ENGINEER Deysi Alicea MD LAB - BLOOD ORDERABLES Performing Organization Address City/State/ZIP Code Phon e Number [facility] 500 [place] [address] [facility] documented in this encounter Visit Diagnoses Not on filedocumented in this encounter Care Teams Grant Writer Relationship Specialty Start Date End Date Momo Forbes PCP - General Family Practice 01/02/14 [facility] 1999 [place] [address] Ingrid Santana, RN Registered Nurse Transplant 02/10/12 documented as of this encounter
--- OUTSIDE RECORDS SUMMARY | 2022-07-10 14:04 | XMS_ITS | Encounter Summary ---
:1950 Author Organization [place] Address [facility] [place] [address] Care Team Providers Name Role Phone Ingrid Santana RN Unavailable Unavailable Momo Forbes Primary Care Provider Encounter Details Date Type Department Care Team Description 05/27/2014 Orders Only Nephrology Shiva Kahn RN -donor kidney 2nd Floor, Clinic 2A [facility] transplant recipient Tommy Ruizfelisa [address] [place] [phone] Social History Tobacco Use Types Packs/Day Years [...] transplant documented in this encounter Care Teams Vamp Cut Out Worker Relationship Specialty Start Date End Date Momo Forbes PCP - General Family Practice 01/02/[address] [address] Ingrid Santana RN Registered Nurse Transplant 02/10/12 documented as of this encounter
--- OUTSIDE RECORDS SUMMARY | 2022-07-10 14:04 | XMS_ITS | Encounter Summary ---
:1950 Author Organization [place] Address [facility] [place] [address] Care Team Providers Name Role Phone Ingrid Santana RN Unavailable Unavailable Momo Forbes Primary Care Provider Encounter Details Date Type Department Care Team Description 05/17/2014 Orders Only Nephrology Shiva Kahn RN -donor kidney 2nd Floor, Clinic 2A [facility] transplant recipient Tommy Ruizfelisa [address] [place] [address] (Primary Dx) Building [address] [place] [address] [phone] Social History Tobacco Use Types Packs/Day Years [...] documented in this encounter Care Teams Belt Line Feeder Relationship Specialty Start Date End Date Momo Forbes PCP - General Family Practice 01/02/[address] [address] Ingrid Santana RN Registered Nurse Transplant 02/10/12 documented as of this encounter
--- OUTSIDE RECORDS SUMMARY | 2022-07-10 14:04 | XMS_ITS | Encounter Summary ---
:1950 Author Organization [place] Address [facility], [facility] [facility] [place] [place] [address] Care Team Providers Name Role Phone Ingrid Santana RN Unavailable Unavailable Momo Forbes Primary Care Provider Encounter Details Date Type Department Care Team Description 05/20/2014 External Order Results The Transplant Ce nter Nurse, [facility] 2nd Floor, Clinic [address] [address] Social History Tobacco Use [...] (if ml/min/1.7 Omani) 3m2 (External) GFR Estimated 46 (L) >60 [...] on filedocumented in this encounter Care Teams Reinforcing Steel Erector Relationship Specialty Start Date End Date Momo Forbes PCP - General Family Practice 01/02/14 [facility] 1999 [place], [place] [phone] Ingrid Santana, RN Registered Nurse Transplant 02/10/12 documented as of this encounter
--- OUTSIDE RECORDS SUMMARY | 2022-07-10 14:04 | XMS_ITS | Encounter Summary ---
:1950 Author Organization [place] Address [address] [place] [address] Care Team Providers Name Role Phone Ingrid Santana RN Unavailable Unavailable Momo Forbes Primary Care Provider Joseph Quintana MD Unavailable Encounter Details Date Type Department Care Team Description 07/10/2014 External Order Results The Transplant Ce nter Nurse, [facility] 2nd Floor, Clinic [address]A [address] [place] [address] Social History Tobacco Use Types [...] 8:17 AM Results f or this RESULTS RATCHET SETTER procedure are i n the results section. documented in this encounter Results (ABNORMAL) TXP External Lab Result (07/08/2014 8:17 AM RATCHET SETTER) Analysis Performed At Patho logist Time [...] Estimated >60 >60 LABDE SCAN (if ml/min/1.7 Armenian) 3m2 (External) GFR Estimated 51 (L) >60 [...] / / Volume Laterality 07/08/2014 8:17 AM RATCHET SETTER Narrative JESSCIA PFT - 07/10/2014 6:20 AM RATCHET SETTER Verified by Janee Alexis on 07/10/2014 . Patient Reported LABORATORY Performing Organization Address City/State/ZIP Code Phon e Number [facility]DE [facility] documented in this encounter Visit Diagnoses Not on filedocumented in this encounter Care Teams Ear Nose Throat Physician Relationship Specialty Start Date End Date Momo Forbes PCP - General Family Practice 01/02/[address] [address] Ingrid Santana, RN Registered Nurse Transplant 02/10/12 Joseph Quintana, Assigned Nephrology 03/29/21 MD Provider [address] [place] [address] documented as of this encounter
--- OUTSIDE RECORDS SUMMARY | 2022-07-10 14:04 | XMS_ITS | Encounter Summary ---
:1950 Author Organization [place] Address [address] [place] [address] Care Team Providers Name Role Phone Ingrid Santana RN Unavailable Unavailable Momo Forbes Primary Care Provider Joseph Quintana MD Unavailable Encounter Details Date Type Department Care Team Description 07/03/2014 External Order Results The Transplant Ce nter Nurse, [facility] 2nd Floor, Clinic [address]A [address] [place] [address] Social History Tobacco Use Types [...] 8:27 AM Results f or this RESULTS CENTRAL OFFICE TECHNICIAN procedure are i n the results section. documented in this encounter Results (ABNORMAL) TXP External Lab Result (07/01/2014 8:27 AM CENTRAL OFFICE TECHNICIAN) Analysis Performed At Patho logist Time [...] 57 (L) >60 LABDE SCAN (if ml/min/1.7 Egyptian) 3m2 (External) GFR Estimated 47 (L) >60 [...] / / Volume Laterality 07/01/2014 8:27 AM CENTRAL OFFICE TECHNICIAN Narrative JESSICA PFT - 07/03/2014 2:18 PM CENTRAL OFFICE TECHNICIAN Verified by Xiomara Bello on 07/03/20 14. Patient Reported LABORATORY Performing Organization Address City/State/ZIP Code Phon e Number [facility] documented in this encounter Visit Diagnoses Not on filedocumented in this encounter Care Teams Alligator Trapper Relationship Specialty Start Date End Date Momo Forbes PCP - General Family Practice 01/02/14 [place] [id number] Ingrid Santana, RN Registered Nurse Transplant 02/10/12 Joseph Quintana, Assigned Nephrology 03/29/21 MD Provider [address] [place] [phone] documented as of this encounter
--- OUTSIDE RECORDS SUMMARY | 2022-07-10 14:04 | XMS_ITS | Encounter Summary ---
:1950 Author Organization [place] Address [facility] [place] [address] Care Team Providers Name Role Phone Ingrid Santana RN Unavailable Unavailable Momo Forbes Primary Care Provider Reason for Visit Reason Onset Date Comments Pre Visit Planning - Done 05/13/2014 6 week f/u pos t op afib. medication changes last visit. Encounter Details Date Type Department Care Team Description 05/13/2014 PRE VISIT [facility] [address] Pre Visit Planning - Physicians Orestes Hernandez MD Done (6 week f/u post [facility] op afib. medication Building [place] changes last visit. ) 4th Floor, Clinic 4B [address] [phone] (Wo rk) [address] [phone] Social History Tobacco Use Types Packs/Day Years [...] on filedocumented in this encounter Care Teams Limnology Teacher Relationship Specialty Start Date End Date Momo Forbes PCP - General Family Practice 01/02/[address] [address] Ingrid Santana, RN Registered Nurse Transplant 02/10/12 documented as of this encounter
--- OUTSIDE RECORDS SUMMARY | 2022-07-10 14:04 | XMS_ITS | Encounter Summary ---
:1950 Author Organization [place] Address [address] [place] [address] Care Team Providers Name Role Phone Ingrid Santana RN Unavailable Unavailable Momo Forbes Primary Care Provider Joseph Quintana MD Unavailable Encounter Details Date Type Department Care Team Description 06/24/2014 External Order Results The Transplant Ce nter Nurse, [facility] 2nd Floor, Clinic [address]A [address] [place] [address] Social History Tobacco Use Types [...] 8:37 AM Results f or this RESULTS DIRECTOR AUTO procedure are i n the results section. documented in this encounter Results (ABNORMAL) TXP External Lab Result (06/24/2014 8:37 AM DIRECTOR AUTO) Analysis Performed At Patho logist Time Signature [...] 54 (L) >60 LABDE SCAN (if ml/min/1.7 Martiniquais) 3m2 (External) GFR Estimated 44 (L) >60 [...] / / Volume Laterality 06/24/2014 8:37 AM DIRECTOR AUTO Narrative JESSICA PFT - 06/24/2014 2:52 PM DIRECTOR AUTO Verified by Sofie Verdin on 4. Patient Reported LABORATORY Performing Organization Address City/State/ZIP Code Phon e Number [facility]DE [facility] documented in this encounter Visit Diagnoses Not on filedocumented in this encounter Care Teams Textile Artist Relationship Specialty Start Date End Date Momo Forbes PCP - General Family Practice 01/02/14 [place] [id number] Ingrid Santana, RN Registered Nurse Transplant 02/10/12 Joseph Quintana, Assigned Nephrology 03/29/21 MD Provider [address] [place] [address] [id number] documented as of this encounter
[2022-07-10 14:05] LABS: HCO3 VBG 23 mmol/L (21-28); PCO2 VBG 40 mmHG (40-50); PO2 VBG 47.9 mmHG (25-47)
--- OUTSIDE RECORDS SUMMARY | 2022-07-10 14:05 | XMS_ITS | Encounter Summary ---
:1950 Author Organization [place] Address [address] [place] [address] Care Team Providers Name Role Phone Ingrid Santana RN Unavailable Unavailable Momo Forbes Primary Care Provider Reason for Referral Specialty Diagnoses / Procedures Referred By Contact Refer red To Contact Migel Merchant MD 420 [facility] 195 [place], [place] [address] Referral ID Status Reason Start Date [...] of adverse or sub-therapeutic effects including at [facility] the following: Has the patient experienced [...] Care Team Description 03/29/2014 Orders Only [facility] Migel Merchanta l fibrillation (H) (Primary Dx); Anticoagulation Clin ic MD [facility] (current) use of anticoagulant s 420 [facility] 420 [facility] 195 [phone] [place] [address] Social History Tobacco Use Types Packs/Day Years [...] Routine Atrial fibri llation (H) Ordered: 03/29/2014 Assisted (Current) Use Of Anticoagulants documented as of this encounter Visit Diagnoses Diagnosis Atrial fibrillation (H) - Primary Atrial fibrillation superintendent container terminal (current) use of anticoagulant s Long-term (current) use of anticoagulant s documented in this encounter Care Teams Keyboard Specialist Relationship Specialty Start Date End Date Momo Forbes PCP - General Family Practice 01/02/14 [facility] 1999 [place] [address] Ingrid Santana, RN Registered Nurse Transplant 02/10/12 documented as of this encounter
--- OUTSIDE RECORDS SUMMARY | 2022-07-10 14:05 | XMS_ITS | Encounter Summary ---
:1950 Author Organization [place] Address [address] [place] [address] Care Team Providers Name Role Phone Ingrid Santana RN Unavailable Unavailable Momo Forbes Primary Care Provider Reason for Visit Auth/Cert - Closed Specialty Diagnoses / Procedures Referred By Contact Refer red To Contact Surgery Diagnoses S/P Kidney Transplant Uu Periop Procedures COMBINED CYSTOSCOPY, REMOVE STENT(S) 500 [place] [address] Phone: Fax: Referral ID Status Reason Start Date Expiration Date Visits Requ ested Visits Authorized [id number] Closed 1 1 Encounter Details Date Type Department Care Team Description 04/01/2014 Surgery [facility] Migel Merchant , [place] of Right Double PeriOp Services J Stent 500 [facility] 420 [facility] [place] [address] [place] [address] [place] [address] (Wo rk) Surgery Details Date/Time Status Location [...] Scott RN - 04/01/2014 10:15 AM CDT [facility] [place] Same-Day Surgery Adult Discharge Orders & Instructions [...] To contact a doctor, call or: ??? [phone] and ask for the resident clinical documentation nurse for (answered 24 hours a day) ??? Emergency Department: [facility]: [phone] (TTY for hearing impaired: [phone]) documented in this encounter Medications at Time [...] Component Value Ref Test Analysis Performed At [facility] gist Range Method Time Signature Specimen Unspecified [facility] UNIVERSITY Description Urine CAMPUS LABS Special Specimen [...] Number [facility] [address] LABS [facility] MICROBIOLOGY (ABNORMAL) UA with Microscopic (04/01/2014 9:00 AM CDT) Component Value Ref Test Analysis Performed At Patholo gist Range Method Time Signature Color Urine Yellow [facility] UNIVERSITY CAMPUS LABS Appearance Urine Clear [facility] UNIVERSITY CAMPUS LABS Glucose Urine 30 (A) NEG [facility] mg/dL UNIVERSITY CAMPUS LABS Bilirubin Urine Negative NEG [facility] UNIVERSITY CAMPUS LABS Ketones Urine Negative NEG [facility] mg/dL UNIVERSITY DIAGONAL LABS Specific [place] 1.017 1.003 - [facility] Urine 1.035 UNIV[facility]ITY DIAGONAL LABS Blood Urine Moderate (A) NEG [facility] LAB[facility] pH Urine 6.0 5.0 - [facility] 7.0 pH UNIVERSITY CAMPUS LABS Protein Albumin 10 (A) NEG [facility] Urine mg/dL UNIVERSITY DIAGONAL LABS Urobilinogen Normal 0.0 - [facility] mg/dL 2.0 UNIVERSITY mg/dL CAMPUS LABS Nitrite Urine Negative NEG [facility] UNIVERSITY CAMPUS LABS Leukocyte Negative NEG [facility] Esterase Urine UNIVERSITY DIAGONAL LABS Source Unspecified [facility] Urine UNIVERSITY CAMPUS [...] Phon e Number [facility] [address] LABS (ABNORMAL) INR (04/01/2014 8:36 AM CDT) P athologist Signature INR 1.64 (H) 0.86 - 1.14 [facility] LABS Specimen Anatomical Collection Method Collection Time Receive d Time (Source) Location / / Volume Laterality Blood specimen 04/01/2014 8:36 AM 014 8:41 (specimen) CDT AM CDT Momo Jimenez MD LAB - BLOOD ORDERABLES Performing Organization Address City/[facility]/ZIP Code Phon e Number [facility] [address] LABS EKG 12-lead, tracing only (04/01/2014 8:28 AM CDT) [facility] gist Method Time Signature Interpretation ECG Click View RADIOLOGY Image link RESULTS to view waveform and result Specimen (Source) Anatomical Collection Method Collection Time Re ceived Time Location / / Volume Laterality 04/01/2014 8:28 AM CDT Momo Jimenez MD ECG ORDERABLES Performing Organization Address City/[facility]/ZIP Code Phon e Number RADIOLOGY RESULTS Potassium (04/01/2014 8:11 AM CDT) athologist Signature Potassium 4.1 3.4 - 5.3 [facility] mmol/L CAMPUS LABS Specimen Anatomical Collection Method Collection Time Receive d Time (Source) Location / / Volume Laterality Blood specimen 04/01/2014 8:11 AM 014 8:27 (specimen) CDT AM CDT Momo Jimenez MD LAB - BLOOD ORDERABLES Performing Organization Address City/[facility] Code Phon e Number [address] LABS (ABNORMAL) Hemoglobin (04/01/2014 8:11 AM CDT) athologist [facility] Hemoglobin 10.2 (L) 13.3 - [facility] 17.7 g/dL CAMPUS LABS Specimen Anatomical Collection Method Collection Time Receive d Time (Source) Location / / Volume Laterality Blood specimen 04/01/2014 8:11 AM 014 8:27 (specimen) CDT AM CDT Momo Jimenez MD LAB - BLOOD ORDERABLES Performing Organization Address City/[facility]/ZIP Code Phon e Number [address] LABS (ABNORMAL) Glucose by meter (04/01/2014 [...] 0850 (Given - Provider: Addis Brannon APRN BID CLERK - Comment: Asked by Fellow to give [...] Intra-procedure documented in this encounter Care Teams Dockworker Relationship Specialty Start Date End Date Momo Forbes PCP - General Family Practice 01/02/[address] [address] Ingrid Santana, RN Registered Nurse Transplant 02/10/12 documented as of this encounter
--- OUTSIDE RECORDS SUMMARY | 2022-07-10 14:05 | XMS_ITS | Encounter Summary ---
:1950 Author Organization [place] Address [facility] [place] [address] Care Team Providers Name Role Phone Ingrid Santana RN Unavailable Unavailable Momo Forbes Primary Care Provider Encounter Details Date Type Department Care Team Description 03/18/2014 Orders Only Nephrology Shiva Kahn RN -donor kidney 2nd Floor, Clinic 2A [facility] transplant recipient Tommy Ruizfelisa [address] [place] [phone] Social History Tobacco Use Types Packs/Day Years [...] transplant documented in this encounter Care Teams Brake Lining Driller Relationship Specialty Start Date End Date Momo Forbes PCP - General Family Practice 01/02/[address] [address] Ingrid Santana RN Registered Nurse Transplant 02/10/12 documented as of this encounter
--- OUTSIDE RECORDS SUMMARY | 2022-07-10 14:05 | XMS_ITS | Encounter Summary ---
:1950 Author Organization [place] Address [facility] [place] [address] Care Team Providers Name Role Phone Ingrid Santana RN Unavailable Unavailable Momo Forbes Primary Care Provider Encounter Details Date Type Department Care Team Description 03/19/2014 Orders Only Nephrology Shiva Kahn RN -donor kidney 2nd Floor, Clinic 2A [facility] transplant recipient Tommy Ruizfelisa [address] [place] [phone] Social History Tobacco Use Types Packs/Day Years [...] transplant documented in this encounter Care Teams Film Processing Shift Supervisor Relationship Specialty Start Date End Date Momo Forbes PCP - General Family Practice 01/02/[address] [address] Ingrid Santana RN Registered Nurse Transplant 02/10/12 documented as of this encounter
--- OUTSIDE RECORDS SUMMARY | 2022-07-10 14:05 | XMS_ITS | Encounter Summary ---
:1950 Author Organization [place] Address [facility] [place] [address] Care Team Providers Name Role Phone Ingrid Santana RN Unavailable Unavailable Momo Forbes Primary Care Provider Reason for Visit Reason Onset Date Comments Refill Request 04/26/2014 Encounter Details Date Type Department Care Team Description 04/26/2014 Refill Nephrology Shiva Kahn RN Refill Request 2nd Floor, Clinic 2A [facility] [place] [address] [facility]2 [place], [place] [phone] [place] [address] [place] [phone] Social History Tobacco Use Types Packs/Day [...] transplant documented in this encounter Care Teams Physical Sciences Instructor Relationship Specialty Start Date End Date Momo Forbes PCP - General Family Practice 01/02/14 [facility] 1999 [place] [address] Ingrid Santana RN Registered Nurse Transplant 02/10/12 documented as of this encounter
--- OUTSIDE RECORDS SUMMARY | 2022-07-10 14:05 | XMS_ITS | Encounter Summary ---
:1950 Author Organization [place] Address [address] [place] [address] Care Team Providers Name Role Phone Ingrid Santana RN Unavailable Unavailable Momo Forbes Primary Care Provider Encounter Details Date Type Department Care Team Description 03/22/2014 Orders Only [facility], Joseph Conor [facility], [facility] jm [place] [address] [phone] [place] [address] 596 [place] [address] (Wo rk) Social History Tobacco [...] Results Tacrolimus level (04/19/2014 8:40 AM CDT) [facility] Method Time Signature Tacrolimus Not Provided [facility] Last Dose [facility] Tacrolimus 10.3 5.0 - [facility] Level 15.0 ug/L [facility] Comment: Tacrolimus Reference Range [...] Phon e Number [facility] 500 [place], [place] [phone] [place] [address] [facility] Tacrolimus level (04/16/2014 8:22 AM CDT) [facility] gist Method Time Signature Tacrolimus Not Provided [facility] Last Dose [facility] Tacrolimus 9.1 5.0 - [facility] Level 15.0 ug/L [facility] Comment: Tacrolimus Reference Range [...] Phon e Number [facility] 500 [place], [place] [id number] [place] [address] [facility] Tacrolimus level (04/11/2014 8:40 AM CDT) [facility] gist Method Time Signature Tacrolimus Last 04/10/14 [facility] Dose 19:00 [facility] Tacrolimus 14.4 5.0 - [facility] Level 15.0 ug/L [facility] Comment: Tacrolimus Reference Range [...] Phon e Number [facility] 500 [place] [address] [place] [facility] Tacrolimus level (04/09/2014 8:45 AM CDT) [facility] gist Method Time Signature Tacrolimus Last 04/08/14 [facility] Dose 2000 [facility] Tacrolimus 11.7 5.0 - [facility] Level 15.0 ug/L [facility] Comment: Tacrolimus Reference Range [...] Phon e Number [facility] 500 [place], [place] [phone] [place] [address] [facility] Tacrolimus level (04/05/2014 9:40 AM CDT) [facility] gist Method Time Signature Tacrolimus Last 1999 [facility] Dose 04/04/14 [facility] Tacrolimus 9.7 5.0 - [facility] Level 15.0 ug/L [facility] Comment: Tacrolimus Reference Range [...] Phon e Number [facility] 500 [place] [address] [place] [facility] (ABNORMAL) Tacrolimus level (03/28/2014 8:30 AM CDT) [facility] gist Method Time Signature Tacrolimus Last 03/27/14 [facility] Dose 1900 [facility] Tacrolimus 15.8 (H) 5.0 - [facility] Level 15.0 ug/L [facility] Comment: Tacrolimus Reference Range [...] Phon e Number [facility] 500 [place] [address] [place] [facility] Tacrolimus level (03/26/2014 9:18 AM CDT) [facility] gist Method Time Signature Tacrolimus Last 03/25/14 [facility] Dose 1900 [facility] Tacrolimus 9.2 5.0 - [facility] Level 15.0 ug/L [facility] Comment: Tacrolimus Reference Range [...] Phon e Number [facility] 500 [place], [place] [phone] [place] [address] [facility] Tacrolimus level (03/14/2014 9:00 AM CDT) [facility] gist Method Time Signature Tacrolimus Last 1999 [facility] Dose 03/13/14 [facility] Tacrolimus 9.5 5.0 - [facility] Level 15.0 ug/L [facility] Comment: Tacrolimus Reference Range [...] Address City/State/ZIP Code Phon e Number [phone] [place] [address] LABS documented in this encounter Visit Diagnoses Not on filedocumented in this encounter Care Teams Care Services Manager Relationship Specialty Start Date End Date Momo Forbes PCP - General Family Practice 01/02/14 [facility] [address] [place] [address] Ingrid Santana, RN Registered Nurse Transplant 02/10/12 documented as of this encounter
--- OUTSIDE RECORDS SUMMARY | 2022-07-10 14:05 | XMS_ITS | Encounter Summary ---
:1950 Author Organization [place] Address [facility] [place] [address] Care Team Providers Name Role Phone Ingrid Santana RN Unavailable Unavailable Momo Forbes Primary Care Provider Reason for Visit Reason Comments Heart Problem 2 m f/u Post op AFIB s/p DCC V. on warfarin 4 weeks Encounter Details Date Type Department Care Team Description 04/09/2014 [facility] Atrial fibrill ation (H) (Primary Dx); [facility] Enrique Maria pecified essential hypertension; Heart Other and unspecified hyperlipidemia; Tommy [facility] DM (diabetes mellitus), type 2 (H) Building [place] 4th Floor, Clinic 4B [address] [phone] [place], [place] (Work) [address] [phone] Social History Tobacco Use Types Packs/Day Years [...] questions or concerns. 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 Smoking [...] 04/01/2014 Negative NEG mg/dL Final ??? Specific [place] Urine 04/01/2014 1.017 1.003 - 1.035 Final [...] NEG Ketones Urine Negative NEG mg/dL Specific [place] Urine 1.017 1.003 - 1.035 Blood Urine [...] uncontrolled documented in this encounter Care Teams Sourcing Consultant Relationship Specialty Start Date End Date Momo Forbes PCP - General Family Practice 01/02/14 [facility] [address] [place] [address] Ingrid Santana, RN Registered Nurse Transplant 02/10/12 documented as of this encounter
--- OUTSIDE RECORDS SUMMARY | 2022-07-10 14:05 | XMS_ITS | Encounter Summary ---
:1950 Author Organization [place] Address [facility] [place] [address] Care Team Providers Name Role Phone Ingrid Santana RN Unavailable Unavailable oMmo Forbes Primary Care Provider Encounter Details Date Type Department Care Team Description 05/02/2014 Orders Only Nephrology Shiva Kahn RN -donor kidney 2nd Floor, Clinic 2A [facility] transplant recipient Tommy Ruizfelisa [address] [place] [phone] Social History Tobacco Use Types Packs/Day Years [...] transplant documented in this encounter Care Teams Aerospace Project Manager Relationship Specialty Start Date End Date Momo Forbes PCP - General Family Practice 01/02/[address] [address] Ingrid Santana RN Registered Nurse Transplant 02/10/12 documented as of this encounter
--- OUTSIDE RECORDS SUMMARY | 2022-07-10 14:05 | XMS_ITS | Encounter Summary ---
:1950 Author Organization [place] Address [address] [place] [address]. [place] [address] Care Team Providers Name Role Phone Ingrid Santana RN Unavailable Unavailable Momo Forbes Primary Care Provider Encounter Details Date Type Department Care Team Description 04/04/2014 Orders Only Nephrology Shiva Kahn RN S/P kidney transplant 2nd Floor, Clinic [address]A [address] [phone] Social History Tobacco Use Types Packs/Day Years [...] transplant documented in this encounter Care Teams Wire Brush Maker Relationship Specialty Start Date End Date Momo Forbes PCP - General Family Practice 01/02/14 [facility] [address] [place] [address] Ingrid Santana RN Registered Nurse Transplant 02/10/12 documented as of this encounter
--- OUTSIDE RECORDS SUMMARY | 2022-07-10 14:05 | XMS_ITS | Encounter Summary ---
:1950 Author Organization [place] Address [address] [place] [address] Care Team Providers Name Role Phone Ingrid Santana RN Unavailable Unavailable Momo Forbes Primary Care Provider Encounter Details Date Type Department Care Team Description 03/15/2014 Hospital Encounter [facility] Susy Cole, Lymphocele Unit 2A [facility] [address] [place] [phone] [place], [place] [address] (Wo rk) Social History Tobacco Use Types [...] until healed, wash daily with antibacterial soap. [facility] INTERVENTIONAL RADIOLOGY DEPARTMENT Procedure Physician Andrea Can Date of procedure Telephone numbers: [phone] Tuesday-Tuesday 8:00 am to 4:30 pm [phone] After 4:30 pm Tuesday-Tuesday, Weekends & Holidays. Ask for the Interventional Radiologist traveling missionary. Someone is available 24 hours/day [facility] toll free number: Tuesday-Tuesday 8:00 am [...] CCRN March 15, 2014 9:20 AM Pager: [phone] [facility] - 03/15/2014 8:58 AM CDT Discussed order with Dr Merchant today. He would like drain placement if the fluid appears thin. If itappears to be a hematoma then aspiration only. D/w Far[place] resident and IR staff doing the case. Thanks [facility] FORENSICS TEAM DIRECTOR ([phone]) Jeanette Lopez RN - 03/15/2014 8:14 AM CDT Prepped and consented, INR 1.1 FSBS is 219 documented in this encounter Procedure Notes Drea Glasgow MD - 03/15/2014 9:23 AM CDT Interventional Radiology Brief Post Procedure Note Pre Procedure Diagnosis: perinephric fluid collection Post Procedure Diagnosis: Same Procedure: Aspiration of RLQ fluid collection over the tranplant kidney Proceduralist: Drea Glasgow MD, Andrea Gibbons PA-C Pusher Runner: None Time Out: Prior to the start [...] Dr. Yossi Cox Resident: Dr. Drea Glasgow Pusher Runner: Andrea Gibbons PA-C. Medications: 1% lidocaine and [...] Dr. Yossi Cox Resident: Dr. Drea Glasgow Pusher Runner: Andrea Gibbons PA-C. Medications: 1% lidocaine and [...] Component Value Ref Test Analysis Performed At [facility] Range Method Time Signature Specimen Aspirate [facility] Gram Stain Many PMNs seen [facility] No organisms seen MICROBIOLOGY Micro Report FINAL [facility] Status 03/15/2014 MICROBIOLOGY Specimen Anatomical Collection Method Collection Time Receive d Time (Source) Location / / Volume Laterality 03/15/2014 9:05 AM 4 9:59 CDT AM CDT Celina Cole MD LAB - MICRO GENERAL ORDERABL ES Performing Organization Address City/[facility]/ZIP Code Phon e Number [facility] [address] LABS [facility] MICROBIOLOGY (ABNORMAL) Fluid Culture (03/15/2014 9:05 AM CDT) Component Value Ref Test Analysis Performed At Patholo gist Range Method Time Signature Specimen Aspirate [facility] Description [facility] Culture Micro Light growth Coagulase negat jo Staphylococcus Susceptibility testing not [facility] routinely done MICROBIOLOGY (A) Micro Report FINAL 03/18/2014 [facility] Status MICROBIOLOGY Specimen Anatomical Collection Method Collection Time Receive d Time (Source) Location / / Volume Laterality Fluid specimen SPECIMEN OBTAINED 03/15/2014 9:05 AM 9:59 (specimen) BY ASPIRATION / CDT AM CDT Unknown Celina Cole MD LAB - MICRO GENERAL ORDERABL ES Performing Organization Address City/[facility]/ZIP Code Phon e Number [address] LABS [facility] MICROBIOLOGY Triglyceride Fluid (03/15/2014 9:05 AM CDT) Patholo gist Method Time Signature Triglyceride Aspirate [facility] Fluid Source [facility] Triglyceride 94 mg/dL [facility] Fluid [facility] Comment: No reference ranges have been [...] Performing Organization Address City/[facility]/ZIP Code Phon e Number [address] [place] [address] [facility] Cell count with differential fluid (03/15/2014 9:05 AM CDT) Component Value Ref Test Analysis Performed At [facility] Range Method Time Signature Body Fluid Aspirate [facility] Analysis Source [facility] Color Fluid Brown [facility] LAB[facility] Appearance Turbid [facility] Fluid [facility]S RBC Fluid << Do Not /uL [facility] Report >> [facility] LABS WBC Fluid 57886 /uL [facility] % Neutrophils 97 % [facility] Fluid [facility] % Lymphocytes 2 % [facility] Fluid [facility]S % Eosinophils 1 % [facility] Fluid [facility]S Specimen Anatomical Collection Method Collection Time Receive d Time (Source) Location / / Volume Laterality SPECIMEN OBTAINED 03/15/2014 9:05 AM 02/20 9:56 BY ASPIRATION / CDT AM CDT Unknown Celina Cole MD LAB - BODY FLUIDS ORDERABLES Performing Organization Address City/State/ZIP Code Phon e Number [facility] [address] LABS Lactate dehydrogenase fluid (03/15/2014 9:05 AM CDT) Component Value Ref Test Analysis Performed At [facility] Range Method Time Signature LD Fluid Source Aspirate [facility] LABS Lactate Canceled, Test credited [...] e Number [facility] 500 [place], [place] [phone] [place] [address] LABS Creatinine fluid (03/15/2014 9:05 AM CDT) [facility] Method Time Signature Creatinine Aspirate [facility] Fluid Source [facility] Creatinine 1.5 mg/dL [facility] LABS Comment: No reference ranges [...] Performing Organization Address City/[facility]/ZIP Code Phon e Number [facility] 500 [place] [address] [facility] LABS INR point of care [...] Performing Organization Address City/[facility]/ZIP Code Phon e Number [facility] PO[facility] OF [...] Performing Organization Address City/[facility]/ZIP Code Phon e Number [facility] POINT OF [...] Jeanette Lopez RN) Routine, 3 g, Intravenous, PRE-OP/PRE-MI OCEDURE, Starting on Tue03/15/14 at 0734, For [...] Intra-procedure documented in this encounter Care Teams Seed Mill Superintendent Relationship Specialty Start Date End Date Momo Forbes PCP - General Family Practice 01/02/[address] [address] Ingrid Santana, RN Registered Nurse Transplant 02/10/12 documented as of this encounter
--- OUTSIDE RECORDS SUMMARY | 2022-07-10 14:05 | XMS_ITS | Encounter Summary ---
:1950 Author Organization [place] Address [address] [place] [address] Care Team Providers Name Role Phone Ingrid Santana RN Unavailable Unavailable Momo Forbes Primary Care Provider Reason for Visit Reason Onset Date Comments Anticoagulation 03/29/2014 Encounter Details Date Type Department Care Team Description 03/29/2014 Telephone [facility] ED Mary Sheffield RN Anticoagulation Anticoagulation Clin [place] [phone] Social History Tobacco Use Types Packs/Day [...] \this patient. He has INRs done at [facility] He takes Warfarin 5 mg daily He developed Afib after surgery . He sees cardiologylater this month to determine if the Warfarin can be stopped. He is having a stent removed on Tuesday04/01/14 Spoke with the Oncall Dr Perez no need to stop Warfarin INR yesterday at [facility] was 1[address] Kahn Instructed patient's to give 7.5 mg tonight and then 5 mg Sat , Sun Conservative increase since we do not know how quickly he responds. He is having the procedure on Tuesday. documented in this encounter Plan of Treatment Not on filedocumented as of this encounter Visit Diagnoses Not on filedocumented in this encounter Care Teams Youth Liaison Officer Relationship Specialty Start Date End Date Momo Forbes PCP - General Family Practice 01/02/[address] [address] Ingrid Santana, RN Registered Nurse Transplant 02/10/12 documented as of this encounter
--- OUTSIDE RECORDS SUMMARY | 2022-07-10 14:05 | XMS_ITS | Encounter Summary ---
:1950 Author Organization [place] Address [address] [facility] [place] [address] Care Team Providers Name Role Phone Ingrid Santana RN Unavailable Unavailable Momo Forbes Primary Care Provider Reason for Visit Auth/Cert - Closed Specialty Diagnoses / Procedures Referred By Contact Refer red To Contact Surgery Diagnoses S/P Kidney Transplant Uu Periop Procedures COMBINED CYSTOSCOPY, REMOVE STENT(S) 500 [place] [address] Phone: Fax: Referral ID Status Reason Start Date Expiration Date Visits Requ ested Visits Authorized [id number] Closed 1 1 Encounter Details Date Type Department Care Team Description 04/01/2014 Anesthesia Event [facility] Clari Torres MD PeriOp Services [facility] ANESTHESIA 500 [place] [address] [place] [address] [place], [place] [id number] (Wo rk) Anesthesia Record Procedure Summary Procedure [...] benefits and alternatives discussed with: patient or medical representative. I agree with the plan written [...] Intra-op documented in this encounter Care Teams Scrub Tech Relationship Specialty Start Date End Date Momo Forbes PCP - General Family Practice 01/02/14 [place] [id number] Ingrid Santana, RN Registered Nurse Transplant 02/10/12 documented as of this encounter
--- OUTSIDE RECORDS SUMMARY | 2022-07-10 14:05 | XMS_ITS | Encounter Summary ---
:1950 Author Organization [place] Address [facility] [place] [address] Care Team Providers Name Role Phone Ingrid Santana RN Unavailable Unavailable Momo Forbes Primary Care Provider Reason for Visit Reason Onset Date Comments Refill Request 04/05/2014 Tamy Cabrera Encounter Details Date Type Department Care Team Description 04/05/2014 Refill The Transplant Migel Martinez, Refill Request 2nd Floor, Clinic 2A [facility] 420 [facility] antoprazole) Building [facility] 195 6 [facility] [address] [place] [phone] Social History Tobacco Use Types Packs/Day Years [...] Last Fill: 03/14/14 Qty: 30 Michael [facility] [phone] documented in this encounter Plan of Treatment Not on filedocumented as of this encounter Visit Diagnoses Diagnosis S/P kidney transplant Kidney replaced by transplant Atrial fibrillation (H) Atrial fibrillation documented in this encounter Care Teams Epilepsy Physician Relationship Specialty Start Date End Date Momo Forbes PCP - General Family Practice 01/02/14 [facility] [address] [place] [address] Ingrid Santana, RN Registered Nurse Transplant 02/10/12 documented as of this encounter
--- OUTSIDE RECORDS SUMMARY | 2022-07-10 14:05 | XMS_ITS | Encounter Summary ---
:1950 Author Organization [place] Address [facility] [place] [address] Care Team Providers Name Role Phone Ingrid Santana RN Unavailable Unavailable Momo Forbes Primary Care Provider Reason for Visit Reason Comments RECHECK s/p kidney tx Auth/Cert - Closed Specialty Diagnoses / Procedures Referred By Contact Refer red To Contact Surgery Diagnoses S/P Kidney Transplant Uu Periop Procedures COMBINED CYSTOSCOPY, REMOVE STENT(S) 500 [place] [address] Phone: Fax: Referral ID Status Reason Start Date Expiration Date Visits Requ ested Visits Authorized [id number] Closed 1 1 Encounter Details Date Type Department Care Team Description 04/01/2014 Office Visit Nephrology Deysi Alicea Immunosuppressed status (H) (Primary Dx); 2nd Floor, Clinic MD Aline High risk medication use; 2A [facility] Kidney replaced by homeroan t; Tommy DOMÍNGUEZ S/P kidney transplant [place] [address] [place] [address] [place], [place] (Work) [address] [phone] Social History Tobacco Use Types Packs/Day Years [...] -no follow up, I will ask his adoption coordinator to obtain results from his local [...] at home regularly; BP checked by me [id number]; HE was previously on Metoprolol 12.5 mg [...] of Education: 14 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
--- OUTSIDE RECORDS SUMMARY | 2022-07-10 14:05 | XMS_ITS | Encounter Summary ---
:1950 Author Organization [place] Address [facility] [place] [address] Care Team Providers Name Role Phone Ingrid Santana RN Unavailable Unavailable Momo Forbes Primary Care Provider Reason for Visit Reason Onset Date Comments Patient Reminder 03/26/2014 Encounter Details Date Type Department Care Team Description 03/26/2014 Telephone Nephrology Yesenia Clements LPN Patient Reminder 2nd Floor, Clinic [address]A [address] [phone] Social History Tobacco [...] filedocumented in this encounter Care Teams Paint Stripper Relationship Specialty Start Date End Date Momo Forbes PCP - General Family Practice 01/02/14 [facility] [address] [place] [address] Ingrid Santana, RN Registered Nurse Transplant 02/10/12 documented as of this encounter
--- OUTSIDE RECORDS SUMMARY | 2022-07-10 14:05 | XMS_ITS | Encounter Summary ---
:1950 Author Organization [place] Address [facility] [place] [address] Care Team Providers Name Role Phone Ingrid Santana RN Unavailable Unavailable Momo Forbes Primary Care Provider Reason for Visit Reason Onset Date Comments Anticoagulation 04/01/2014 Encounter Details Date Type Department Care Team Description 04/01/2014 Telephone [facility] Joseph Levine , Anticoagulation Anticoagulation Clin ic [facility] [address] [place], [place] [phone] [facility] [phone] [place] [address] [place] [address] (Wo rk) Social History Tobacco Use Types Packs/Day Years Used Date Smoking Tobacco: Former Cigars Quit : 08/22/2006 Smokeless Tobacco: Never Alcohol Use Standard Drinks/Week Comments Yes 0 (1 standard drink = 0.6 oz pure alcoho l) occasional drink. Sex Assigned at Date Recorded Not on file documented as of this encounter Miscellaneous Notes Telephone Encounter - Joseph Levine, [facility] - 04/01/2014 5:22 PM CDT INR today [...] filedocumented in this encounter Care Teams Concrete Technician Relationship Specialty Start Date End Date Momo Forbes PCP - General Family Practice 01/02/14 [place] [id number] Ingrid Santana, RN Registered Nurse Transplant 02/10/12 documented as of this encounter
--- OUTSIDE RECORDS SUMMARY | 2022-07-10 14:05 | XMS_ITS | Encounter Summary ---
:1950 Author Organization [place] Address [address] [place] [address] Care Team Providers Name Role Phone Ingrid Santana RN Unavailable Unavailable Momo Forbes Primary Care Provider Reason for Visit Auth/Cert - Closed Specialty Diagnoses / Procedures Referred By Contact Refer red To Contact Surgery Diagnoses S/P Kidney Transplant Uu Periop Procedures COMBINED CYSTOSCOPY, REMOVE STENT(S) 500 [place] [address] Phone: Fax: Referral ID Status Reason Start Date Expiration Date Visits Requ ested Visits Authorized [id number] Closed 1 1 Encounter Details Date Type Department Care Team Description 04/01/2014 Hospital Encounter [facility] Mayur, Migel Evans, Same Day Surgery East [address] 500 [facility] 195 [place] [address] [place] [address] (Wo rk) Social History Tobacco Use Types [...] Scott RN - 04/01/2014 10:15 AM CDT [facility], [place] Same-Day Surgery Adult Discharge Orders & Instructions [...] To contact a doctor, call or: ??? [phone] and ask for the resident substation electrician supervisor for (answered 24 hours a day) ??? Emergency Department: [facility]: [phone] (TTY for hearing impaired: [phone]) documented in this encounter Medications at Time [...] Test Analysis Performed At [facility] gist Range Method Time Signature Specimen Unspecified [facility] LABS Special Specimen [facility] Requests [...] Organization Address City/State/ZIP Code Phon e Number [address] [address] [facility] MICROBIOLOGY (ABNORMAL) UA with Microscopic (04/01/2014 9:00 AM CDT) Component Value Ref Test Analysis Performed At [facility] gist Range Method Time Signature Color Urine Yellow [facility] Appearance Urine Clear [facility] Glucose Urine 30 (A) NEG [facility] mg/dL [facility] LABS Bilirubin Urine Negative NEG [facility] Ketones Urine Negative NEG [facility] mg/dL [facility] LABS Specific [place] 1.017 1.003 - [facility] Urine 1.035 [facility]S Blood Urine Moderate (A) NEG [facility] pH Urine 6.0 5.0 - [facility] 7.0 pH UN[facility]ITY [place] [facility] Protein Albumin 10 (A) NEG [facility] Urine mg/dL [facility] [place] [facility] Urobilinogen Normal 0.0 - [facility] mg/dL 2.0 [place] mg/dL [place] [facility] Nitrite Urine Negative NEG [facility] Leukocyte Negative NEG [facility] Esterase Urine [facility]ITY [place] [facility] Source Unspecified [facility] Urine UNIVERSITY CAMPUS [...] - URINE ORDERABLES Performing Organization Address City/[facility]/ZIP Code Phon e Number [address] LABS (ABNORMAL) INR (04/01/2014 8:36 AM CDT) P athologist Signature INR 1.64 (H) 0.86 - 1.14 [facility] LABS Specimen Anatomical Collection Method Collection Time Receive d Time (Source) Location / / Volume Laterality Blood specimen 04/01/2014 8:36 AM 014 8:41 (specimen) CDT AM CDT Momo Jimenez MD LAB - BLOOD ORDERABLES Performing Organization Address City/[facility]/ZIP Code Phon e Number [facility] [address] LABS EKG 12-lead, tracing only (04/01/2014 8:28 AM CDT) Patholo gist Method Time Signature Interpretation ECG Click View RADIOLOGY Image link RESULTS to view waveform and result Specimen (Source) Anatomical Collection Method Collection Time Re ceived Time Location / / Volume Laterality 04/01/2014 8:28 AM CDT Momo Jimenez MD ECG ORDERABLES Performing Organization Address City/[facility]/ZIP Code Phon e Number RADIOLOGY RESULTS Potassium (04/01/2014 8:11 AM CDT) athologist Signature Potassium 4.1 3.4 - 5.3 [facility] mmol/L [place] LABS Specimen Anatomical Collection Method Collection Time Receive d Time (Source) Location / / Volume Laterality Blood specimen 04/01/2014 8:11 AM 014 8:27 (specimen) CDT AM CDT Momo Jimenez MD LAB - BLOOD ORDERABLES Performing Organization Address [facility]/ZIP Code Phon e Number [address] LABS (ABNORMAL) Hemoglobin (04/01/2014 8:11 AM CDT) athologist Signature Hemoglobin 10.2 (L) 13.3 - [facility] 17.7 g/dL [place] LABS Specimen Anatomical Collection Method Collection Time Receive d Time (Source) Location / / Volume Laterality Blood specimen 04/01/2014 8:11 AM 014 8:27 (specimen) CDT AM CDT Momo Jimenez MD LAB - BLOOD ORDERABLES Performing Organization Address City/[facility]/ZIP Code Phon e Number [address] LABS (ABNORMAL) Glucose by meter (04/01/2014 8:02 AM CDT) athologist Signature Glucose 158 (H) 60 - 99 POINT OF CARE mg/dL TEST, GLUCOSE Specimen Anatomical Collection Method Collection Time Receive d Time (Source) Location / / Volume Laterality 04/01/2014 8:02 AM 4 8:05 CDT AM CDT Migel Merchant MD LAB - BEAKER POCT Performing Organization Address City/[facility]/ZIP Code Phon e Number [facility] POINT OF CARE TEST, GLUCOSE POINT OF CARE TEST, GLUCOSE documented in this encounter Visit Diagnoses Not on filedocumented in this encounter Active and Recently Administered Medications Times are shown in CDT. Scheduled Medication Order 03/30/2014 03/31/2014 04/01/2014 levofloxacin (LEVAQUIN) IVPB 500 mg (COMPLETED) 0850 (Given - Provider: Addis Brannon APRN OPEN HEARTH HELPER - Comment: Asked by Fellow to give [...] Intra-procedure documented in this encounter Care Teams Shooting Gallery Operator Relationship Specialty Start Date End Date Momo Forbes PCP - General Family Practice 01/02/14 [place] [id number] Ingrid Santana, RN Registered Nurse Transplant 02/10/12 documented as of this encounter
--- OUTSIDE RECORDS SUMMARY | 2022-07-10 14:05 | XMS_ITS | Encounter Summary ---
:1950 Author Organization [place] Address [address] [place] [address] Care Team Providers Name Role Phone Ingrid Santana RN Unavailable Unavailable Momo Forbes Primary Care Provider Encounter Details Date Type Department Care Team Description 04/22/2014 Orders Only [facility], [facility], [facility] j[place] [address] [phone] [place] [address] [address] [place] [address] (Wo rk) Social History Tobacco [...] (ABNORMAL) Tacrolimus level (05/17/2014 8:17 AM CDT) [facility] Method Time Signature Tacrolimus Last 05/16/2014 [facility] Dose 2000 [facility] LABS Tacrolimus 4.4 (L) 5.0 - [facility] Level 15.0 ug/L NEXUS [...] Phon e Number [facility] 500 [place], [place] [id number] [place] [address] [facility] LABS (ABNORMAL) Tacrolimus level (05/15/2014 8:15 AM CDT) [facility] gist Method Time Signature Tacrolimus Last 05/14/14 [facility] Dose 2000 [facility] LABS Tacrolimus 4.6 (L) 5.0 - [facility] Level 15.0 ug/L NEXUS [...] Phon e Number [facility] 500 [place] [address] [facility] LABS Tacrolimus level (05/10/2014 8:50 AM CDT) [facility] gist Method Time Signature Tacrolimus Not Provided [facility] Last Dose [facility] LABS Tacrolimus 14.3 5.0 - [facility] Level 15.0 ug/L [facility] [...] Phon e Number [facility] 500 [place] [address] [place] [facility] LABS (ABNORMAL) Tacrolimus level (05/07/2014 8:15 AM CDT) [facility] gist Method Time Signature Tacrolimus Last 05/06/14 [facility] Dose 2000 [facility] LABS Tacrolimus 15.9 (H) 5.0 - [facility] Level 15.0 ug/L NEXUS [...] Phon e Number [facility] 500 [place], [place] [phone] [place] [address] [facility] LABS Tacrolimus level (05/03/2014 8:13 AM CDT) [facility] gist Method Time Signature Tacrolimus Last [facility] Dose 2000 [facility] LABS Tacrolimus 8.8 5.0 - [facility] Level 15.0 ug/L NEXUS [...] Phon e Number [facility] 500 [place], [place] [phone] [place] [address] [facility]S Tacrolimus level (04/30/2014 8:20 AM CDT) [facility] gist Method Time Signature Tacrolimus Last 04/29/14 [facility] Dose 2000 [facility] LABS Tacrolimus 12.6 5.0 - [facility] Level 15.0 ug/L NEXUS [...] Phon e Number [facility] 500 [place], [place] [id number] [place] [address] [facility] LABS Tacrolimus level (04/26/2014 8:30 AM CDT) [facility] gist Method Time Signature Tacrolimus Last 04/25/14 [facility] Dose 1900 [facility] LABS Tacrolimus 10.1 5.0 - [facility] Level 15.0 ug/L NEXUS [...] Phon e Number [facility] 500 [place] [address] [facility] LABS Tacrolimus level (04/24/2014 9:00 AM CDT) [facility] gist Method Time Signature Tacrolimus Last 04/23/14 [facility] Dose 1900 [facility] LABS Tacrolimus 13.1 5.0 - [facility] Level 15.0 ug/L NEXUS [...] Phon e Number [facility] 500 [place], [place] [id number] [place] [address] LABS documented in this encounter Visit Diagnoses Not on filedocumented in this encounter Care Teams Grocery Store Bagger Relationship Specialty Start Date End Date Momo Forbes PCP - General Family Practice 01/02/14 [facility] 1999 [place] [address] Ingrid Santana, RN Registered Nurse Transplant 02/10/12 documented as of this encounter
[2022-07-10 14:06] LABS: Lactate Sepsis w/Reflex* 1.3 mmol/L (0.5-1.9)
--- OUTSIDE RECORDS SUMMARY | 2022-07-10 14:06 | XMS_ITS | Encounter Summary ---
:1950 Author Organization [place] Address Critical access hospital0 [facility] [place] [address] Care Team Providers Name Role Phone Ingrid Santana RN Unavailable Unavailable Momo Forbes Primary Care Provider Reason for Visit Reason Comments Eval/Assessment LBA Encounter Details Date Type Department Care Team Description 02/14/2014 Office Visit Specialty Infusion Edward, Naim S, Kidney r eplaced by transplant (Primary Dx); and Procedure Center Immunosuppression (H); Arpita [facility] Hyperka lemia; [facility] Hypophosphatemia; 2nd Floor [address] Atrial fibrillation (H); [address] [place], [place] Anemia; [place] [address] HTN (hypertension) [place], [place] [phone] [address] (Work) [phone] Social History Tobacco Use Types Packs/Day Years [...] Years of Education: 14 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
--- OUTSIDE RECORDS SUMMARY | 2022-07-10 14:06 | XMS_ITS | Encounter Summary ---
:1950 Author Organization [place] Address [address] [place] [address] Care Team Providers Name Role Phone Ingrid Santana RN Unavailable Unavailable Momo Forbes Primary Care Provider Reason for Visit Auth/Cert - Closed Specialty Diagnoses / Procedures Referred By Contact Refer red To Contact Surgery Diagnoses Status Post Kidney Transplant Uu Periop Procedures COMBINED CYSTOSCOPY, REMOVE STENT(S) 500 [place] [address] Phone: Fax: Referral ID Status Reason Start Date Expiration Date Visits Requ ested Visits Authorized [id number] Closed 1 1 Encounter Details Date Type Department Care Team Description 03/11/2014 Hospital Encounter [facility] Migel Merchant, Same Day Surgery East [address] 500 [facility] 195 [place] [address] [place] [address] (Wo rk) Social History Tobacco Use Types [...] 8:46 CDT AM CDT Migel Merchant MD [facility] POCT Performing Organization Address City/State/ZIP Code Phon e Number [facility] POINT OF CARE TEST, GLUCOSE POINT OF CARE TEST, GLUCOSE documented in this encounter Visit Diagnoses Not on filedocumented in this encounter Active and Recently Administered Medications Care Teams House Designer Relationship Specialty Start Date End Date Momo Forbes PCP - General Family Practice 01/02/14 [facility] 1999 [place] [address] Ingrid Santana, RN Registered Nurse Transplant 02/10/12 documented as of this encounter
--- OUTSIDE RECORDS SUMMARY | 2022-07-10 14:06 | XMS_ITS | Encounter Summary ---
:1950 Author Organization [place] Address [address] [place] [address] Care Team Providers Name Role Phone Ingrid Santana RN Unavailable Unavailable Momo Forbes Primary Care Provider Reason for Visit Reason Onset Date Comments Pre Visit Planning - Done 03/08/2014 Appointment on 03/11/2014 Encounter Details Date Type Department Care Team Description 03/08/2014 Telephone Nephrology Alexandria Caldera Pre Visit Planning - 2nd Floor, Clinic 2A JATIN Done (Appointment on Tommy Wilburn 03/11/20 14) [address] [address] Social History Tobacco Use [...] bring list of medications. Toldpatient to call [phone] if any questions or needs to reschedule. Alexandria Caldera CMA documented in this encounter Plan of Treatment Not on filedocumented as of this encounter Visit Diagnoses Not on filedocumented in this encounter Care Teams Animal Stunner Relationship Specialty Start Date End Date Momo Forbes PCP - General Family Practice 01/02/14 [facility] 1999 [place] [address] Ingrid Santana, RN Registered Nurse Transplant 02/10/12 documented as of this encounter
--- OUTSIDE RECORDS SUMMARY | 2022-07-10 14:06 | XMS_ITS | Encounter Summary ---
:1950 Author Organization [place] Address [address] [place] [address]. [place] [address] Care Team Providers Name Role Phone Ingrid [...] 12-lead, tracing only (02/18/2014 9:53 AM CDT) [facility] gist Method Time Signature Interpretation ECG [...] on filedocumented in this encounter Care Teams Finger Lift Operator Relationship Specialty Start Date End Date Momo Forbes PCP - General Family Practice 01/02/14 [facility] 1999 [place] [address] Ingrid Santana, RN Registered Nurse Transplant 02/10/12 documented as of this encounter
--- OUTSIDE RECORDS SUMMARY | 2022-07-10 14:06 | XMS_ITS | Encounter Summary ---
:1950 Author Organization [place] Address [address] [place] [address] Care Team Providers Name Role Phone Ingrid Santana RN Unavailable Unavailable Momo Forbes Primary Care Provider Reason for Visit Reason Onset Date Comments Refill Request 03/04/2014Aug Encounter Details Date Type Department Care Team Description 03/04/2014 Refill The Transplant Kaitlynn Moreno MD Refill Request 2nd Floor, Clinic 2A [facility] [address] [address] [place], [place] [phone] (Wo rk) [address] [phone] Social History Tobacco Use Types Packs/Day Years [...] Fill Date: 02/08/14 Quantity: 60 Michael [facility] [phone] documented in this encounter Plan of Treatment Not on filedocumented as of this encounter Visit Diagnoses Diagnosis Atrial fibrillation (H) Atrial fibrillation documented in this encounter Care Teams Probation Worker Relationship Specialty Start Date End Date Momo Forbes PCP - General Family Practice 01/02/14 [facility] 1999 [place] [phone] Ingrid Santana, RN Registered Nurse Transplant 02/10/12 documented as of this encounter
--- OUTSIDE RECORDS SUMMARY | 2022-07-10 14:06 | XMS_ITS | Encounter Summary ---
:1950 Author Organization [place] Address [address] [place] [address]. [place] [address] Care Team Providers Name Role Phone Ingrid Santana RN Unavailable Unavailable Momo Forbes Primary Care Provider Encounter Details Date Type Department Care Team Description 02/18/2014 Orders Only Nephrology Shiva Kahn, -donor kidney transp lant recipient (Primary Dx); 2nd Floor, Clinic 2A RN High risk medications (not anticoagulant s) long-term use; Tommy Wilburn [facility] CATY HIGGINS intermediate accountant (current) use of anticoagulant s [place] [id number] [place] [phone] Social History Tobacco Use Types Packs/Day Years [...] long-term (current) use of other medications intermediate accountant (current) use of anticoagulant s Long-term (current) use of anticoagulant s documented in this encounter Care Teams Heavy Antiarmor Weapons Infantryman Relationship Specialty Start Date End Date Momo Forbes PCP - General Family Practice 01/02/14 [facility] 2000 [place], [place] [phone] Ingrid Santana, RN Registered Nurse Transplant 02/10/12 documented as of this encounter
--- OUTSIDE RECORDS SUMMARY | 2022-07-10 14:06 | XMS_ITS | Encounter Summary ---
:1950 Author Organization [place] Address [address] [place] [address]. [place] [address] Care Team Providers Name Role Phone Ingrid Santana RN Unavailable Unavailable Momo Forbes Primary Care Provider Encounter Details Date Type Department Care Team Description 02/18/2014 Orders Only Nephrology Shiva Kahn RN -donor kidney transplant recipie nt (Primary Dx); 2nd Floor, Clinic 2A [facility] Kidney replaced by transplant; Tommy Ruizensteen 420 [facility] S/P kidney transplant Building [address] [place] [phone] Social History Tobacco Use Types Packs/Day Years [...] 01/02/14 [facility] 1999 [place] [address] Ingrid Santana RN Registered Nurse Transplant 02/10/12 documented as of this encounter
--- OUTSIDE RECORDS SUMMARY | 2022-07-10 14:06 | XMS_ITS | Encounter Summary ---
:1950 Author Organization [place] Address [address] [place] [address] Care Team Providers Name Role Phone Ingrid Santana RN Unavailable Unavailable Momo Forbes Primary Care Provider Reason for Visit Reason Onset Date Comments Previsit 02/15/[address] Merchant 02/18 Encounter Details Date Type Department Care Team Description 02/15/2014 Telephone Transplant Surgery Radha Acosta LPN Prev isit (Appt with Dr Anthony Merchant 02/18) 2nd Floor, Clinic [address] [place] [address] Social History Tobacco Use Types [...] filedocumented in this encounter Care Teams Health Aide Relationship Specialty Start Date End Date Momo Forbes PCP - General Family Practice 01/02/14 [place] [phone] Ingrid Santana, RN Registered Nurse Transplant 02/10/12 documented as of this encounter
--- OUTSIDE RECORDS SUMMARY | 2022-07-10 14:06 | XMS_ITS | Encounter Summary ---
:1950 Author Organization [place] Address [facility] [place] [address] Care Team Providers Name Role Phone Ingrid [...] Clinic 2A [address] [place] Immunosuppression (H); [facility] 1 95 Atrial fibrillation (H) [phone] [place] [address] [place], [place] (Work) [phone] Social History Tobacco [...] fibrillation documented in this encounter Care Teams Tile Layer Drainage Relationship Specialty Start Date End Date Momo Forbes PCP - General Family Practice 01/02/[address] [address] Ingrid Santana, RN Registered Nurse Transplant 02/10/12 documented as of this encounter
--- OUTSIDE RECORDS SUMMARY | 2022-07-10 14:06 | XMS_ITS | Encounter Summary ---
:1950 Author Organization [place] Address [address] [place] [address]. [place] [address] Care Team Providers Name Role Phone Ingrid Santana RN Unavailable Unavailable Momo Forbes Primary Care Provider Encounter Details Date Type Department Care Team Description 03/11/2014 Orders Only Transplant Surgery Celina Cole (Primary Clinic A, Dx) 2nd Floor, Clinic 2A [address] [place] [address] [address] [place] [address] Social History Tobacco Use Types [...] channels documented in this encounter Care Teams Nurse Staff Industrial Relationship Specialty Start Date End Date Momo Forbes PCP - General Family Practice 01/02/14 [facility] 1999 [place] [address] Ingrid Santana RN Registered Nurse Transplant 02/10/12 documented as of this encounter
--- OUTSIDE RECORDS SUMMARY | 2022-07-10 14:06 | XMS_ITS | Encounter Summary ---
:1950 Author Organization [place] Address [facility] [place] [address] Care Team Providers Name Role Phone Ingrid Santana RN Unavailable Unavailable Momo Forbes Primary Care Provider Encounter Details Date Type Department Care Team Description 03/14/2014 Orders Only Nephrology Shiva Kahn RN -donor kidney 2nd Floor, Clinic 2A [facility] transplant recipient Tommy Ruizfelias [address] [place] [phone] [phone] Social History Tobacco Use Types Packs/Day Years [...] transplant documented in this encounter Care Teams Geophysical E Logger Relationship Specialty Start Date End Date Momo Forbes PCP - General Family Practice 01/02/[address] [address] Ingrid Santana RN Registered Nurse Transplant 02/10/12 documented as of this encounter
--- OUTSIDE RECORDS SUMMARY | 2022-07-10 14:06 | XMS_ITS | Encounter Summary ---
:1950 Author Organization [place] Address [facility] [place] [address] Care Team Providers Name Role Phone Ingrid Santana RN Unavailable Unavailable Momo Forbes Primary Care Provider Encounter Details Date Type Department Care Team Description 02/18/2014 Orders Only The Transplant Deysi Burns, Kidney replaced by transplan t; 2nd Floor, Clinic 2A S/P kidney transplant [facility] 516 [facility] [address] [place] [address] [address] [place], [place] [id number] [place] [address] (Wo rk) [address] [phone] Social History Tobacco Use Types Packs/Day Years [...] Signature Magnesium 1.5 (L) 1.6 - 2.3 [facility] mg/dL [place] LABS Specimen Anatomical Collection Method Collection Time Receive d Time (Source) Location / / Volume Laterality Blood specimen 02/18/2014 8:56 AM 014 8:57 (specimen) CDT AM CDT Kaitlynn Leon MD LAB - BLOOD ORDERABLES Performing Organization Address City/[facility]/ZIP Code Phon e Number [facility] [address] LABS (ABNORMAL) Phosphorus (02/18/2014 8:56 AM CDT) athologist Signature Phosphorus 1.9 (L) 2.5 - 4.5 [facility] mg/dL [place] LABS Specimen Anatomical Collection Method Collection Time Receive d Time (Source) Location / / Volume Laterality Blood specimen 02/18/2014 8:56 AM 014 8:57 (specimen) CDT AM CDT Kaitlynn Leon MD LAB - BLOOD ORDERABLES Performing Organization Address City/State/ZIP Code Phon e Number [facility] 500 [place], [place] [id number] [place] [address] LABS Tacrolimus level (02/18/2014 8:56 AM CDT) [facility] gist Method Time Signature Tacrolimus Last 02/12/14 [facility] Dose 1930 [facility] LABS Tacrolimus 14.1 5.0 - [facility] Level 15.0 ug/L [facility] LABS Comment: Tacrolimus Reference Range Kidney [...] e Number [facility] 500 [place], [place] [id number] [place] [address] LABS (ABNORMAL) CBC with platelets differential (02/18/2014 8:56 AM CDT) [facility] Method Time Signature WBC 6.3 4.0 - [facility] 11.0 [facility] 10e9/L [place] LABS RBC Count 2.59 (L) 4.4 - 5.9 [facility] 10e12/L [facility] LABS Hemoglobin 7.8 (L) 13.3 - [facility] 17.7 g/dL [facility] LABS Hematocrit 23.7 (L) 40.0 - [facility] 53.0 % [facility] LABS MCV 92 78 - 100 [facility] fl [facility] LABS MCH 30.1 26.5 - [facility] 33.0 pg [facility] LABS MCHC 32.9 31.5 - [facility] 36.5 g/dL [facility] LABS RDW 14.7 10.0 - [facility] 15.0 % [facility] LABS Platelet Count 140 (L) 150 - 450 [facility] 10e9/L [facility] LABS Diff Method Automated [facility] Method [facility] LABS % Neutrophils 84.7 % [facility] LABS % Lymphocytes 3.8 % [facility] LABS % Monocytes 6.0 % [facility] LABS % Eosinophils 4.8 % [facility] LABS % Basophils 0.5 % [facility] LABS % Immature 0.2 % [facility] Granulocytes [facility] LABS Absolute 5.3 1.6 - 8.3 [facility] Neutrophil 10e9/L [facility] LABS Absolute 0.2 (L) 0.8 - 5.3 [facility] Lymphocytes 10e9/L [facility] LABS Absolute 0.4 0.0 - 1.3 [facility] Monocytes 10e9/L [facility] LABS Absolute 0.3 0.0 - 0.7 [facility] Eosinophils 10e9/L [facility] LABS Absolute 0.0 0.0 - 0.2 [facility] Basophils 10e9/L [facility] LABS Abs Immature 0.0 0 - 0.4 [facility] Granulocytes 10e9/L [facility] LABS Specimen Anatomical Collection Method Collection Time Receive d Time (Source) Location / / Volume Laterality Blood specimen 02/18/2014 8:56 AM 014 8:57 (specimen) CDT AM CDT Kaitlynn Leon MD LAB - BLOOD ORDERABLES Performing Organization Address City/State/ZIP Code Phon e Number [phone] [place] [address] LABS (ABNORMAL) Basic metabolic panel (02/18/2014 8:56 AM CDT) [facility] gist Method Time Signature Sodium 141 133 - 144 [facility] mmol/L [facility] LABS Potassium 5.2 3.4 - 5.3 [facility] mmol/L [facility] LABS Chloride 112 (H) 94 - 109 [facility] mmol/L [facility] LABS Carbon Dioxide 18 (L) 20 - 32 [facility] mmol/L [facility] LABS Anion Gap 11 6 - 17 [facility] mmol/L [facility] LABS Glucose 185 (H) 60 - 99 [facility] mg/dL [facility] LABS Urea Nitrogen 24 7 - 30 [facility] mg/dL [facility] LABS Creatinine 1.81 (H) 0.66 - [facility] 1.25 mg/dL [facility] LABS GFR Estimate 38 (L) >60 [facility] mL/min/1.7 [facility] m2 CAMPUS LABS GFR Estimate If 46 (L) >60 [facility] Black mL/min/1.7 [place] [address] CAMPUS LABS Calcium 9.4 8.5 - 10.4 [facility] mg/dL [facility] LABS Specimen Anatomical Collection Method Collection Time Receive d Time (Source) Location / / Volume Laterality Blood specimen 02/18/2014 8:56 AM 014 8:57 (specimen) CDT AM CDT Kaitlynn Leon MD LAB - BLOOD ORDERABLES Performing Organization Address City/[facility]/ZIP Code Phon e Number [address] [address] [facility] LABS (ABNORMAL) INR (02/18/2014 8:56 AM CDT) P athologist Signature INR 2.13 (H) 0.86 - 1.14 [facility] LABS Specimen Anatomical Collection Method Collection Time Receive d Time (Source) Location / / Volume Laterality Blood specimen 02/18/2014 8:56 AM 014 8:57 (specimen) CDT AM CDT Kaitlynn Leon MD LAB - BLOOD ORDERABLES Performing Organization Address City/[facility] Code Phon e Number [facility] 500 [place] [address] [facility] LABS documented in this encounter Visit Diagnoses Diagnosis Kidney replaced by transplant S/P kidney transplant Kidney replaced by transplant documented in this encounter Care Teams Pit Recorder Relationship Specialty Start Date End Date Momo Forbes PCP - General Family Practice 01/02/14 [facility] 1999 [place] [address] Ingrid Santana, RN Registered Nurse Transplant 02/10/12 documented as of this encounter
--- OUTSIDE RECORDS SUMMARY | 2022-07-10 14:06 | XMS_ITS | Encounter Summary ---
:1950 Author Organization [place] Address [facility]0 [facility] [place] [address] Care Team Providers Name Role Phone Ingrid Santana RN Unavailable Unavailable Momo Forbes Primary Care Provider Reason for Visit Reason Onset Date Comments Refill Request 02/15/2014 Encounter Details Date Type Department Care Team Description 02/15/2014 Refill Nephrology Shiva Kahn RN Refill Request 2nd Floor, Clinic 2A [facility] Sanders Wang[address]steen [address] [facility] [place], [place] [id number] [place] [address] [place] [phone] Social History Tobacco Use Types Packs/Day [...] on filedocumented in this encounter Care Teams Fabrication Mig Welder Relationship Specialty Start Date End Date Momo Forbes PCP - General Family Practice 01/02/14 [facility] 2000 [place] [address] Ingrid Santana RN Registered Nurse Transplant 02/10/12 documented as of this encounter
--- OUTSIDE RECORDS SUMMARY | 2022-07-10 14:06 | XMS_ITS | Encounter Summary ---
:1950 Author Organization [place] Address [address] [place] [address]. [place] [address] Care Team Providers Name Role Phone Ingrid Santana RN Unavailable Unavailable Momo Forbes Primary Care Provider Encounter Details Date Type Department Care Team Description 03/13/2014 Orders Only Nephrology Shiva Kahn, Atrial fibrillation (H); 2nd Floor, Clinic 2A RN -donor kidney transplant recipie nt Tommy Wilburn [address] [address] [phone] Social History Tobacco Use Types Packs/Day Years [...] in this encounter Care Teams Vice President [employer] Relationship Specialty Start Date End Date Momo Forbes PCP - General Family Practice 01/02/14 [facility] 1999 [place] [address] Ingrid Santana RN Registered Nurse Transplant 02/10/12 documented as of this encounter
--- OUTSIDE RECORDS SUMMARY | 2022-07-10 14:06 | XMS_ITS | Encounter Summary ---
:1950 Author Organization [place] Address [address] [place] [address] Care Team Providers Name Role Phone Ingrid Santana RN Unavailable Unavailable Momo Forbes Primary Care Provider Encounter Details Date Type Department Care Team Description 03/11/2014 Anesthesia Event [facility] Aly Esquivel MD PeriOp Services 420 [facility] 500 [facility] 294 [place] [address] [place] [address] [phone] (Wo rk) Anesthesia Record Procedure Summary Procedure [...] alternatives discussed with: patient or sales representative canvas products. Possibility of blood products discussed. Procedures and [...] on filedocumented in this encounter Care Teams Planning And Analysis Manager Relationship Specialty Start Date End Date Momo Forbes PCP - General Family Practice 01/02/[address] [address] Ingrid Santana, RN Registered Nurse Transplant 02/10/12 documented as of this encounter
--- OUTSIDE RECORDS SUMMARY | 2022-07-10 14:06 | XMS_ITS | Encounter Summary ---
:1950 Author Organization [place] Address [address] [place] [address] Care Team Providers Name Role Phone Ingrid Santana RN Unavailable Unavailable Momo Forbes Primary Care Provider Reason for Visit Reason Onset Date Comments Previsit 02/20/2014 Encounter Details Date Type Department Care Team Description 02/20/2014 Telephone Transplant Surgery C nanad Merchant, Migel Evans MD Previsit 2nd Floor, Clinic 2A [address] [address] [facility] [place] [phone] Social History Tobacco Use Types Packs/Day Years [...] filedocumented in this encounter Care Teams Assembly Loader Relationship Specialty Start Date End Date Momo Forbes PCP - General Family Practice 01/02/14 [facility] 1999 [place] [id number] Ingrid Santana, RN Registered Nurse Transplant 02/10/12 documented as of this encounter
--- OUTSIDE RECORDS SUMMARY | 2022-07-10 14:06 | XMS_ITS | Encounter Summary ---
:1950 Author Organization [place] Address [facility]0 [facility] [place] [address] Care Team Providers Name Role Phone Ingrid Santana RN Unavailable Unavailable Momo Raines Primary Care Provider Reason for Visit Reason Comments Consult consult for afib Encounter Details Date Type Department Care Team Description 02/18/2014 [facility] Joseph Hernandez (H) (Primary Dx) Heart MD Sanders [facility] Building [place] 4th Floor, Clinic 4B [address] [phone] [place], [place] (Work) [address] [phone] Social History Tobacco Use Types Packs/Day Years [...] fibrillation documented in this encounter Care Teams Jack [employer] All Trades Relationship Specialty Start Date End Date Momo Raines PCP - General Family Practice 01/02/14 [facility] 1999 [place] [address] Ingrid Santana, RN Registered Nurse Transplant 02/10/12 documented as of this encounter
--- OUTSIDE RECORDS SUMMARY | 2022-07-10 14:06 | XMS_ITS | Encounter Summary ---
:1950 Author Organization [place] Address [address] [place] [address] Care Team Providers Name Role Phone Ingrid Santana RN Unavailable Unavailable Momo Forbes Primary Care Provider Reason for Visit Reason Comments Surgical Followup kidney tx 02/02/14 Encounter Details Date Type Department Care Team Description 02/25/2014 Office Visit Transplant Surgery Finger, Migel Hypophosp hatemia (Primary Dx); Clinic MD Nathan Kidney replaced by transplant; 2nd Floor, Clinic [address]A [address] [place] [address] -donor kidney transp lant recipient; Sanders [address] 1 95 High risk medications (not anticoagulant s) long-term use; Building alf (current) use of anticoagulant s; 516 [place], [place]emia; [place] [address] Orthostatic hypotension [facility] 88 [place], [place] (Work) [phone] Social History Tobacco Use [...] Somewhat lethargic. Otherwise well Abd mod obesity. [place] in place. Drain with small amt of [...] will give mag and phos prescription. 5. [place] - Out today 6 Drain -- out [...] sults (not anticoagulants) section . 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 PHOSPHORUS Routine 02/25/2014 [...] 4 1:40 CDT PM CDT [facility] POCT Performing Organization Address City/State/ZIP Code Phon e Number [facility] POINT OF CARE TEST, GLUCOSE POINT OF CARE TEST, GLUCOSE BK virus PCR quantitative (02/25/2014 10:54 AM CDT) Component Value Ref Test Analysis Performed At Patholo gist Range Method Time [facility] BK Virus DNA Plasma, EDTA [facility] Quant Source anticoagulant [facility] LABS BK Virus DNA <390 [facility] Quant Unit: cpy/mL [facility] Copy/mL [place] [facility] BK Virus DNA <2.6 [facility] Quant Log Unit: log [place] (Note) [place] [facility] INTERPRETIVE INFORMATION: BK Virus, Quantitation by [...] methodologies. Test developed and characteristics determined by [employer]. See Compliance Statement A: [email or web address]/ BK Virus DNA Not Detected [facility] Quant Interp Reference range: Not Detected [facility] (Note) [place] [facility] Performed by [employer], [address] [place] [id number] [email or web address], Kj Mcmillan MD, Lab. Director Specimen Anatomical Collection Method Collection Time Receive d Time (Source) Location / / Volume Laterality Blood specimen 02/25/2014 10:54 4 (specimen) AM CDT 10:55 AM CDT Deysi Alicea MD LAB - MICRO GENERAL ORDERABL ES Performing Organization Address City/State/ZIP Code Phon e Number [phone] [place] [address] LABS Immunology recipient: SOT PRA (Post Tx for Donor Spec Antibody) (02/25/2014 10:54 AM CDT) [facility] Method Time Signature Immunology PRA [facility] Test Name [facility] LABS Immunology Specimen [facility] Result received - [facility] LABS report to follow upon completion. Specimen Anatomical Collection Method Collection Time Receive d Time (Source) Location / / Volume Laterality Blood specimen 02/25/2014 10:54 4 (specimen) AM CDT 10:55 AM CDT Deysi Alicea MD LAB - IMMUNOLOGY ORDERABLES Performing Organization Address City/State/ZIP Code Phon e Number [facility] [address] LABS (ABNORMAL) INR (02/25/2014 10:53 AM CDT) athologist Signature INR 2.39 (H) 0.86 - 1.14 [facility] LABS Specimen Anatomical Collection Method Collection Time Receive d Time (Source) Location / / Volume Laterality Blood specimen 02/25/2014 10:53 4 (specimen) AM CDT 10:54 AM CDT Migel Merchant MD LAB - BLOOD ORDERABLES Performing Organization Address City/[facility]/ZIP Code Phon e Number [facility] [address] LABS (ABNORMAL) Magnesium (02/25/2014 10:53 AM CDT) athologist Signature Magnesium 1.5 (L) 1.6 - 2.3 [facility] mg/dL [place] [facility] Specimen Anatomical Collection Method Collection Time Receive d Time (Source) Location / / Volume Laterality Blood specimen 02/25/2014 10:53 4 (specimen) AM CDT 10:54 AM CDT Deysi Alicea MD LAB - BLOOD ORDERABLES Performing Organization Address City/[facility]/ZIP Code Phon e Number [facility] [address] LABS (ABNORMAL) Phosphorus (02/25/2014 10:53 AM CDT) athologist Signature Phosphorus 1.3 (L) 2.5 - 4.5 [facility] mg/dL [place] [facility] Specimen Anatomical Collection Method Collection Time Receive d Time (Source) Location / / Volume Laterality Blood specimen 02/25/2014 10:53 4 (specimen) AM CDT 10:54 AM CDT Deysi Alicea MD LAB - BLOOD ORDERABLES Performing Organization Address City/State/ZIP Code Phon e Number [address] LABS Mycophenolic acid (02/25/2014 10:53 AM [...] e Number [facility] [address] [facility] [place] [facility] Tacrolimus level (02/25/2014 10:53 AM CDT) [facility] gist Method Time Signature Tacrolimus 02/24/14 ?1999 [facility] Last Dose CORRECTED ON 02/25 AT 1055: PREVIOUSLY REPORTED 1999 [facility] [place] [facility] Tacrolimus 9.1 5.0 - [facility] Level 15.0 ug/L [facility] [...] e Number [facility] 500 [place] [address] [facility] LABS (ABNORMAL) Basic metabolic panel (02/25/2014 10:53 AM CDT) [facility] gist Method Time Signature Sodium 137 133 - 144 [facility] mmol/L [facility] LABS Potassium 4.6 3.4 - 5.3 [facility] mmol/L [facility] Chloride 108 94 - 109 [facility] mmol/L [facility] LABS Carbon Dioxide 19 (L) 20 - 32 [facility] mmol/L [facility] [place] [facility] Anion Gap 10 6 - 17 [facility] mmol/L [facility] LABS Glucose 217 (H) 60 - 99 [facility] mg/dL [facility] LABS Urea Nitrogen 13 7 - 30 [facility] mg/dL [facility] LABS Creatinine 1.48 (H) 0.66 - [facility] 1.25 mg/dL [facility] [place] [facility] GFR Estimate 48 (L) >60 [facility] mL/min/1.7 [place] m2 CAMPUS LABS GFR Estimate If 58 (L) >60 [facility] Black mL/min/1.7 [place] m2 CAMPUS LABS Calcium 9.6 8.5 - 10.4 [facility] mg/dL [facility] LABS Specimen Anatomical Collection Method Collection Time Receive d Time (Source) Location / / Volume Laterality Blood specimen 02/25/2014 10:53 4 (specimen) AM CDT 10:54 AM CDT Deysi Alicea MD LAB - BLOOD ORDERABLES Performing Organization Address City/State/ZIP Code Phon e Number [address] [address] [place] [facility] (ABNORMAL) CBC with platelets differential (02/25/2014 10:53 AM CDT) [facility] gist Method Time Signature WBC 4.9 4.0 - [facility] 11.0 UNIVERSITY 10e9/L CAMPUS LABS RBC Count 2.67 (L) 4.4 - 5.9 [facility] 10e12/L [facility] LABS Hemoglobin 7.8 (L) 13.3 - [facility] 17.7 g/dL [facility] LABS Hematocrit 23.5 (L) 40.0 - [facility] 53.0 % [facility] LABS MCV 88 78 - 100 [facility] fl [facility] LAB[facility] MCH 29.2 26.5 - [facility] 33.0 pg [facility] LABS MCHC 33.2 31.5 - [facility] 36.5 g/dL [facility] LABS RDW 14.3 10.0 - [facility] 15.0 % [facility] Platelet Count 179 150 - 450 [facility] 10e9/L [facility] LABS Diff Method Automated [facility] Method [facility] LAB[facility] % Neutrophils 89.4 % [facility] LABS % Lymphocytes 3.9 % [facility] LABS % Monocytes 5.1 % [facility] LABS % Eosinophils 1.2 % [facility] LABS % Basophils 0.2 % [facility] LABS % Immature 0.2 % [facility] Granulocytes [facility] Absolute 4.4 1.6 - 8.3 [facility] Neutrophil 10e9/L [facility] Absolute 0.2 (L) 0.8 - 5.3 [facility] Lymphocytes 10e9/L [facility] Absolute 0.3 0.0 - 1.3 [facility] Monocytes 10e9/L [facility] Absolute 0.1 0.0 - 0.7 [facility] Eosinophils 10e9/L [facility] Absolute 0.0 0.0 - 0.2 [facility] Basophils 10e9/L [facility] LABS Abs Immature 0.0 0 - 0.4 [facility] Granulocytes 10e9/L [facility] LABS Specimen Anatomical Collection Method Collection Time Receive d Time (Source) Location / / Volume Laterality Blood specimen 02/25/2014 10:53 4 (specimen) AM CDT 10:54 AM CDT Deysi Alicea MD LAB - BLOOD ORDERABLES Performing Organization Address City/State/ZIP Code Phon e Number [facility] 500 [place] [address] [facility] LABS documented in this [...] hypotension documented in this encounter Care Teams [employer] Judicial Law Clerk Relationship Specialty Start Date End Date Momo Forbes PCP - General Family Practice 01/02/[address] [address] Ingrid Santana, RN Registered Nurse Transplant 02/10/12 documented as of this encounter
--- OUTSIDE RECORDS SUMMARY | 2022-07-10 14:06 | XMS_ITS | Encounter Summary ---
:1950 Author Organization [place] Address [facility]0 [facility] [place] [address] Care Team Providers Name Role Phone Ingrid Santana RN Unavailable Unavailable Momo Forbes Primary Care Provider Encounter Details Date Type Department Care Team Description 02/15/2014 Orders Only Nephrology Shiva Kahn RN Kidney replaced by transplant; 2nd Floor, Clinic 2A [facility] S/P kidney transplant Tommy [address] [id number] [phone] Social History Tobacco Use Types Packs/Day Years [...] documented in this encounter Care Teams Equipment Service Engineer Relationship Specialty Start Date End Date Momo Forbes PCP - General Family Practice 01/02/14 [facility] [address] [place] [address] Ingrid Santana RN Registered Nurse Transplant 02/10/12 documented as of this encounter
--- OUTSIDE RECORDS SUMMARY | 2022-07-10 14:06 | XMS_ITS | Encounter Summary ---
:1950 Author Organization [place] Address [address] [place] [address] Care Team Providers Name Role Phone Ingrid Santana RN Unavailable Unavailable Momo Forbes Primary Care Provider Reason for Visit Reason Onset Date Comments Transplant 03/08/2014 Elevated tacrolimus level Encounter Details Date Type Department Care Team Description 03/08/2014 Telephone Nephrology Jeff Giordano (Elevated 2nd Floor, Clinic 2A Almita Palomino RN tacrolimus level) Tommy Wilburn [address] [phone] Social History Tobacco Use Types Packs/Day Years [...] repeat the level. Leonor Giordano R.N. - [phone] documented in this encounter Plan of Treatment Not on filedocumented as of this encounter Visit Diagnoses Not on filedocumented in this encounter Care Teams Piano Technician Relationship Specialty Start Date End Date Momo Forbes PCP - General Family Practice 01/02/[address] [address] Ingrid Santana, RN Registered Nurse Transplant 02/10/12 documented as of this encounter
--- OUTSIDE RECORDS SUMMARY | 2022-07-10 14:06 | XMS_ITS | Encounter Summary ---
:1950 Author Organization [place] Address [address] [place] [address] Care Team Providers Name Role Phone Ingrid Santana RN Unavailable Unavailable Momo Forbes Primary Care Provider Encounter Details Date Type Department Care Team Description 02/19/2014 Orders Only [facility], Joseph Conor [facility] jm [place] [address] [phone] [place] [address] 764 [place] [address] (Wo rk) Social History Tobacco [...] Signature Tacrolimus Last 03/18/14 [facility] Dose 2100 [facility] Tacrolimus 13.1 5.0 - [facility] Level 15.0 ug/L [facility] Comment: Tacrolimus Reference Range [...] e Number [facility] 500 [place] [address] [facility] Tacrolimus level (03/12/2014 9:40 AM CDT) [facility] gist Method Time Signature Tacrolimus Not Provided [facility] Last Dose [facility] Tacrolimus 7.3 5.0 - [facility] Level 15.0 ug/L [facility] Comment: Tacrolimus Reference Range [...] e Number [facility] [address] [place] [address] [facility] Tacrolimus level (03/08/2014 10:15 AM CDT) [facility] gist Method Time Signature Tacrolimus Last 03/07/14 [facility] Dose 2000 [facility] Tacrolimus 6.1 5.0 - [facility] Level 15.0 ug/L [facility] Comment: Tacrolimus Reference Range [...] e Number [facility] [address] [place], [place] [id number] [place] [address] [facility] Tacrolimus level (03/06/2014 5:13 PM CDT) [facility] gist Method Time Signature Tacrolimus Last 1400 [facility] Dose 03/05/14 [facility] Tacrolimus 11.3 5.0 - [facility] Level 15.0 ug/L [facility] Comment: Tacrolimus Reference Range [...] e Number [facility] [address] [place] [address] [facility] Tacrolimus level (03/01/2014 8:10 AM CDT) [facility] gist Method Time Signature Tacrolimus Last 02/28/14 [facility] Dose 1930 [facility] Tacrolimus 10.6 5.0 - [facility] Level 15.0 ug/L [facility] Comment: Tacrolimus Reference Range [...] e Number [facility] 500 [place], [place] [phone] [place] [address] [facility] Tacrolimus level (02/27/2014 8:15 AM CDT) [facility] gist Method Time Signature Tacrolimus Last 02/26/14 [facility] Dose 2000 [facility] Tacrolimus 11.4 5.0 - [facility] Level 15.0 ug/L [facility] Comment: Tacrolimus Reference Range [...] e Number [facility] [address] [place], [place] [id number] [place] [address] LABS HLA Lukasz Class II Single Antigen [...] Phon e Number [facility] Immunology/Histocompatabil [place], [place] [address] [facility] 500 [facility] [address] Building, Room 3-580 HISTOTRAC HLA Lukasz Class I Single Antigen (02/25/2014 10:43 AM CDT) Component Value Ref Test Analysis Performed At [facility] Weekdone Range Method Time Signature SA1 Test SA [...] LAB - IMMUNOLOGY ORDERABLES Performing Organization Address City/[facility]/ZIP Code Phon e Number [facility] Immunology/[place], [place] [address] [facility] 500 [facility] [address] [facility], Room 3-580 HISTOTRAC PRA Interfering Substance SCR (02/25/2014 10:43 AM CDT) Component Value Ref Test Analysis Performed At [facility] [email or web address] Method Time Signature Interfering Luminex HISTOTRAC Substance [...] LAB - IMMUNOLOGY ORDERABLES Performing Organization Address City/[facility]/ZIP Code Phon e Number [facility] Immunology/[place], [place] [address] [facility] 500 [facility] [address] [facility], Room 3-580 HISTOTRAC Tacrolimus level (02/21/2014 8:45 AM CDT) [facility] Weekdone Method Time Signature Tacrolimus Last 02/20/14 [facility] Dose 2000 [facility] Tacrolimus 7.9 5.0 - [facility] Level 15.0 ug/L [facility] Comment: Tacrolimus Reference Range [...] e Number [facility] [address] [place] [address] [facility] documented in this encounter Visit Diagnoses Not on filedocumented in this encounter Care Teams Intelligence Officer Relationship Specialty Start Date End Date Momo Forbes PCP - General Family Practice 01/02/14 [place] [id number] Ingrid aSntana, RN Registered Nurse Transplant 02/10/12 documented as of this encounter
--- OUTSIDE RECORDS SUMMARY | 2022-07-10 14:06 | XMS_ITS | Encounter Summary ---
:1950 Author Organization [place] Address [facility]0 [facility] [place] [address] Care Team Providers Name Role Phone Ingrid Santana RN Unavailable Unavailable Momo Forbes Primary Care Provider Encounter Details Date Type Department Care Team Description 03/01/2014 Orders Only Nephrology Shiva Kahn RN -donor kidney 2nd Floor, Clinic 2A [facility] transplant recipient Tommy Ruizfelisa [address] [place] [id number] [phone] Social History Tobacco Use Types Packs/Day Years [...] documented in this encounter Care Teams It Application Development Manager Relationship Specialty Start Date End Date Momo Forbes PCP - General Family Practice 01/02/[address] [address] Ingrid Santana RN Registered Nurse Transplant 02/10/12 documented as of this encounter
--- OUTSIDE RECORDS SUMMARY | 2022-07-10 14:07 | XMS_ITS | Encounter Summary ---
:1950 Author Organization [place] Address [facility] [address] Care Team Providers Name Role Phone Ingrid Santana RN Unavailable Unavailable Momo Forbes Primary Care Provider Reason for Visit Reason Comments Eval/Assessment LBA Encounter Details Date Type Department Care Team Description 02/12/2014 Infusion Therapy Specialty Infusion Finger, Migel Mac y replaced by Visit and Procedure MD Nathan transplant (Primary Center [address] [place] [address] Dx) [facility] [place] [address] 5 [facility] 2nd Floor [address] [phone] [place], [place] (Work) [phone] Social History Tobacco Use [...] Guthrie Thank you for choosing [facility] Specialty Infusion [facility] Procedure [facility] ([facility]) for your transplant cares. The following information is a summary of our appointment as well as important reminders. Additional information: We will see you on for labs & assessment. We look forward in seeing you on your next appointment here at [facility]. Please don???t hesitate to callus at [phone] to reschedule any of your appointments or to speak with one of the [facility] registered nurses. It was a pleasure taking care of you today. Sincerely, Gladis Olvera, BOGDAN [facility] [address] [place] [address] January 2014Tuesday 1 2 3 4 5 6 7 8 9 10 11 12 13 14 Admission 12:55 PM Migel Merchant MD Unit [address]A [facility] [place] (Discharge: 02/08/2014) XR CHEST 2 VIEWS 1:55 [...] Almendarez, BOGDAN [facility], Patient Learning Center UU TRANSPLANT FOLLOW-UP CARE 1:00 PM (120 min.) Josseline Almendarez RN [facility] [place], Patient Learning Center ECH LIMITED 3:35 PM [...] 11:00 AM (120 min.) Em Mohan, RN [facility], Patient Learning Center 21 [facility] NEW TRANSPLANT 7:00 AM (360 min.) [facility] Sipc Chair 9 Specialty Infusion and Procedure Center 22 [facility] NEW TRANSPLANT 7:00 AM (360 min.) [facility] Sipc Chair 11 [facility] Center 23 [facility] NEW TRANSPLANT 7:00 AM (360 min.) [facility] Sipc Chair 12 Special[facility] Infusion [facility] Procedure Center [facility] KIDNEY TX DISCHARGE 9:00 AM (30 min.) Kaitlynn Leon MD [facility] US RENAL TRANSPLANT 2:00 PM (60 min.) [address] 24 [facility] NEW TRANSPLANT 7:00 AM (360 min.) [facility] Sipc Bed 14 Specialty Infusion and Procedure Center [facility] SIPC RETURN 9:00 AM (30 min.) Kaitlynn Leon MD [facility] Center 25 26 [facility] SIPC PROCEDURE 7:00 AM (60 min.) [facility] Sipc Chair 9 Specialty Infusion and Procedure Center [facility] SIPC RETURN 8:00 AM (30 min.) Kaitlynn Leon MD [facility] 27 28 29 30 [facility] NEW 9:00 AM (30 min.) [facility] Cvc Consult [facility] Heart [facility] KIDNEY POST OP 1:45 PM (15 [...] 4:27 PM CDT Diego Guthrie came to [facility] today for a lab and assess following a Kidney transplant on 02/02/14. Discharge date: 02/08/14 accounts receivable coordinator: Leandro Kahn Phone number patient can be reached at: [phone] Physical Assessment: See physical assessment located under Document Flowsheets. Incision site: with modesta & slight ecchymosis. Dry dressing changed. Lines: MARGARET drain to bulb suction is draining sero sanguinous fluid. Continues to drain more than 30 ml/day. Pt will have Tuesday off from [facility] and will return for LBA. [...] of care for today: Pt presented to [facility] for labs and assessment. Labs drawn, reviewed with Dr. Leon. Oral phosphorus tablets ordered. Coumadin dose decreased to 5 mg every evening. Pt will have Tuesday off, return and will start with [facility] Nursing on TuesdayFebruary 15. Pt's [...] Discharge Plan Pt will follow up with [facility] on 02/14 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/Field Auditor verbalized understanding, all questions answered: YES Discharged [...] Signature INR 2.64 (H) 0.86 - 1.14 [facility] Specimen Anatomical Collection Method Collection Time Receive d Time (Source) Location / / Volume Laterality Blood specimen 02/12/2014 7:41 AM 014 7:43 (specimen) CDT AM CDT Kaitlynn Leon MD LAB - BLOOD ORDERABLES Performing Organization Address City/State/ZIP Code Phon e Number [facility] [address] [place] [address] [facility] Tacrolimus level (02/12/2014 7:41 AM CDT) [facility] gist Method Time Signature Tacrolimus Last 02/11/14 [facility] Dose 1900 [facility] Tacrolimus 8.4 5.0 - [facility] Level 15.0 ug/L [facility] [...] [facility] [address] [place] [address] [facility] LABS (ABNORMAL) CBC with platelets differential (02/12/2014 7:41 AM CDT) Patholo gist Method Time Signature WBC 5.0 4.0 - [facility] 11.0 [place] 10e9/L [place] LABS RBC Count 2.41 (L) 4.4 - 5.9 [facility] 10e12/L [facility]S Hemoglobin 7.4 (L) 13.3 - [facility] 17.7 g/dL [facility]S Hematocrit 22.3 (L) 40.0 - [facility] 53.0 % [facility] MCV 93 78 - 100 [facility] fl [facility] MCH 30.7 26.5 - [facility] 33.0 pg [facility] MCHC 33.2 31.5 - [facility] 36.5 g/dL [facility] RDW 14.5 10.0 - [facility] 15.0 % [facility] Platelet Count 95 (L) 150 - 450 [facility] 10e9/L [facility]S Diff Method Automated [facility] Method [facility] LABS % Neutrophils 85.2 % [facility] LABS % Lymphocytes 5.6 % [facility] LABS % Monocytes 4.6 % [facility] LABS % Eosinophils 4.2 % [facility] % Basophils 0.2 % [facility] % Immature 0.2 % [facility] Granulocytes [facility] Absolute 4.3 1.6 - 8.3 [facility] Neutrophil 10e9/L [facility] Absolute 0.3 (L) 0.8 - 5.3 [facility] Lymphocytes 10e9/L [facility] Absolute 0.2 0.0 - 1.3 [facility] Monocytes 10e9/L [facility] Absolute 0.2 0.0 - 0.7 [facility] Eosinophils 10e9/L [facility] Absolute 0.0 0.0 - 0.2 [facility] Basophils 10e9/L [facility] Abs Immature 0.0 0 - 0.4 [facility] Granulocytes 10e9/L [facility] Specimen Anatomical Collection Method Collection Time Receive d Time (Source) Location / / Volume Laterality Blood specimen 02/12/2014 7:41 AM 014 7:43 (specimen) CDT AM CDT Kaitlynn Leon MD LAB - BLOOD ORDERABLES Performing Organization Address City/State/ZIP Code Phon e Number [facility] [address] [place], [place] [phone] [place] [address] LABS (ABNORMAL) Phosphorus (02/12/2014 7:41 AM CDT) P athologist Signature Phosphorus 1.7 (L) 2.5 - 4.5 [facility] mg/dL CAMPUS LABS Specimen Anatomical Collection Method Collection Time Receive d Time (Source) Location / / Volume Laterality Blood specimen 02/12/2014 7:41 AM 014 7:43 (specimen) CDT AM CDT Kaitlynn Leon MD LAB - BLOOD ORDERABLES Performing Organization Address City/[facility] Phon e Number [facility] [address] LABS Magnesium (02/12/2014 7:41 AM CDT) athologist Signature Magnesium 1.8 1.6 - 2.3 [facility] mg/dL CAMPUS LABS Specimen Anatomical Collection Method Collection Time Receive d Time (Source) Location / / Volume Laterality Blood specimen 02/12/2014 7:41 AM 014 7:43 (specimen) CDT AM CDT Kaitlynn Leon MD LAB - BLOOD ORDERABLES Performing Organization Address City/State/[facility] Code Phon e Number [facility] [address] [place], [place] [phone] [place] [address] LABS (ABNORMAL) Basic metabolic panel (02/12/2014 7:41 AM CDT) [facility] gist Method Time Signature Sodium 142 133 - 144 [facility] mmol/L [facility]S Potassium 4.9 3.4 - 5.3 [facility] mmol/L [facility] LABS Chloride 113 (H) 94 - 109 [facility] mmol/L [facility] LABS Carbon Dioxide 21 20 - 32 [facility] mmol/L [facility]S Anion Gap 9 6 - 17 [facility] mmol/L [facility]S Glucose 127 (H) 60 - 99 [facility] mg/dL [facility]S Urea Nitrogen 24 7 - 30 [facility] mg/dL [facility]S Creatinine 1.92 (H) 0.66 - [facility] 1.25 mg/dL [facility] LABS GFR Estimate 36 (L) >60 [facility] mL/min/1.7 [place] m2 CAMPUS LABS GFR Estimate If 43 (L) >60 [facility] Black mL/min/1.7 [place] [address] CAMPUS LABS Calcium 8.9 8.5 - 10.4 [facility] mg/dL [facility] LAB[facility] Specimen Anatomical Collection Method Collection Time Receive d Time (Source) Location / / Volume Laterality Blood specimen 02/12/2014 7:41 AM 014 7:43 (specimen) CDT AM CDT Kaitlynn Leon MD LAB - BLOOD ORDERABLES Performing Organization Address City/State/ZIP Code Phon e Number [facility] [address] [place] [address] [facility] LABS documented in this encounter [...] after. documented in this encounter Care Teams Video Game Technician Relationship Specialty Start Date End Date Momo Forbes PCP - General Family Practice 01/02/[address] [address] Ingrid Santana, RN Registered Nurse Transplant 02/10/12 documented as of this encounter
--- OUTSIDE RECORDS SUMMARY | 2022-07-10 14:07 | XMS_ITS | Encounter Summary ---
:1950 Author Organization [place] Address [address] [place] [address]. [place] [address] Care Team Providers Name Role Phone Ingrid Santana RN Unavailable Unavailable Momo Forbes Primary Care Provider Reason for Visit Reason Onset Date Comments Refill Request 02/11/2014 Encounter Details Date Type Department Care Team Description 02/11/2014 Refill Nephrology Isa Ly RN Refill Request 2nd Floor, Clinic 2A [place] [phone] Social History Tobacco Use Types Packs/Day [...] documented in this encounter Care Teams Cable Lacer Relationship Specialty Start Date End Date Momo Forbes PCP - General Family Practice 01/02/14 [facility] [address] [place] [address] Ingrid Santana RN Registered Nurse Transplant 02/10/12 documented as of this encounter
--- OUTSIDE RECORDS SUMMARY | 2022-07-10 14:07 | XMS_ITS | Encounter Summary ---
:1950 Author Organization [place] Address [facility] [place] [address] Care Team Providers Name Role Phone Ingrid Santana RN Unavailable Unavailable Momo Forbes Primary Care Provider Reason for Visit Reason Comments Eval/Assessment LBA Encounter Details Date Type Department Care Team Description 02/09/2014 Infusion Therapy Specialty Infusion Finger, Migel Mac y replaced by transplant (Primary Dx); Visit and Procedure MD [facility] [address] [place] [address] 19 5 [facility] 2nd Floor [address] [phone] [place], [place] (Work) [phone] Social History Tobacco Use [...] Infusion and Procedure Center ([facility]) for your transplant cares. The following information [...] Pen to your future [facility] appointments. 5) Return to [facility] tomorrow at 07:30 a.m We look forward in seeing you on your next appointment here at [facility]. Please don???t hesitate to callus at [phone] to reschedule any of your appointments or to speak with one of the [facility] registered nurses. It was a pleasure taking care of you today. Sincerely, MARC HERNANDEZ RN [facility] [address] [address] Coumadin Information: Keep Your Diet Steady Keep [...] Diego Guthrie came to [facility] today for a lab and assess following a Kidney transplant on 02/02/14. Discharge date: 02/08/14 lifestyle coordinator: Leandro Kahn Phone number patient can be reached at: [phone] Physical Assessment: See physical assessment located under [...] morning/nor brought insulin to [facility] appt. I reviewed w/pt the need to monitor BG's QID and to bring Insulin to future [facility] appt's. Last BM: yesterday, loose, pt stopped [...] today, d/c pt from [facility] post 1L NS, return to [facility] tomorrow for LBA, No change in Prograf [...] and Phone numbers to call with concenrs (lifestyle coordinator, [address] and [facility]) Patient verbalized understanding and all questions answered. Drug level: Prograf level today reviewed with Dr Hernandes who gave orders to no change in dose. INR of 1.59 also reviewed w/Dr Hernandes who gave orders to increase Coumadin to 7.5mg QD. Patient was updated with this information and verbalized understanding. Discharge Plan Pt will follow up with [facility] tomorrow at 0730. Bring Humulog Insulin Pen to [facility] today (pt did not bring to today's appt). 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/Pediatric Physical Therapist verbalized understanding, all questions answered: YES Discharged [...] Signature INR 1.59 (H) 0.86 - 1.14 [facility] LABS Specimen Anatomical Collection Method Collection Time Receive d Time (Source) Location / / Volume Laterality Blood specimen 02/09/2014 8:30 AM 014 (specimen) CDT 11:07 AM CDT Migel Merchant MD LAB - BLOOD ORDERABLES Performing Organization Address City/State/ZIP Code Phon e Number [facility] [address] [place], [place] [phone] [place] [address] LABS Tacrolimus level (02/09/2014 7:40 AM CDT) [facility] gist Method Time Signature Tacrolimus Not Provided [facility] Last Dose [facility] LABS Tacrolimus 8.0 5.0 - [facility] Level 15.0 ug/L [facility] [...] Phon e Number [facility] [address] [place], [place] [phone] [place] [address] LABS (ABNORMAL) CBC with platelets differential (02/09/2014 7:40 AM CDT) [facility] Method Time Signature WBC 5.8 4.0 - [facility] 11.0 [place] 10e9/L [place] LABS RBC Count 2.66 (L) 4.4 - 5.9 [facility] 10e12/L [facility] LABS Hemoglobin 8.2 (L) 13.3 - [facility] 17.7 g/dL [facility] LABS Hematocrit 24.4 (L) 40.0 - [facility] 53.0 % [facility] LABS MCV 92 78 - [address] [facility] [address] [facility] LABS MCH 30.8 26.5 - [facility] 33.[address] [facility] LABS MCHC 33.6 31.5 - [facility] 36.5 g/dL [facility] LABS RDW 14.6 10.0 - [facility] 15.0 % [facility] LABS Platelet Count 78 (L) 150 - 450 [facility] 10e9/L [facility] LABS Diff Method Automated [facility] Method [facility] LABS % Neutrophils 84.8 % [facility] LABS % Lymphocytes 5.2 % [facility] LABS % Monocytes 6.9 % [facility] LABS % Eosinophils 2.9 % [facility] LABS % Basophils 0.0 % [facility] LABS % Immature 0.2 % [facility] Granulocytes [facility] LABS Absolute 4.9 1.6 - 8.3 [facility] Neutrophil 10e9/L [facility] LABS Absolute 0.3 (L) 0.8 - 5.3 [facility] Lymphocytes 10e9/L [facility] LABS Absolute 0.4 0.0 - 1.3 [facility] Monocytes 10e9/L [facility] LABS Absolute 0.2 0.0 - 0.7 [facility] Eosinophils 10e9/L [facility] LABS Absolute 0.0 0.0 - 0.2 [facility] Basophils 10e9/L [facility] LABS Abs Immature 0.0 0 - 0.4 [facility] Granulocytes 10e9/L [facility] LABS Specimen Anatomical Collection Method Collection Time Receive d Time (Source) Location / / Volume Laterality Blood specimen 02/09/2014 7:40 AM 014 7:49 (specimen) CDT AM CDT Migel Mercahnt MD LAB - BLOOD ORDERABLES Performing Organization Address City/State/ZIP Code Phon e Number [phone] [place] [address] LABS (ABNORMAL) Phosphorus (02/09/2014 7:40 AM CDT) P athologist Signature Phosphorus 2.0 (L) 2.5 - 4.5 [facility] mg/dL CAMPUS LABS Specimen Anatomical Collection Method Collection Time Receive d Time (Source) Location / / Volume Laterality Blood specimen 02/09/2014 7:40 AM 014 7:49 (specimen) CDT AM CDT Migel Merchant MD LAB - BLOOD ORDERABLES Performing Organization Address City/[facility]/ZIP Code Phon e Number [facility] [address] LABS Magnesium (02/09/2014 7:40 AM CDT) [...] Phon e Number [facility] [address] [place], [place] [phone] [place] [address] LABS (ABNORMAL) Basic metabolic panel (02/09/2014 7:40 AM CDT) Patholo gist Method Time Signature Sodium 145 (H) 133 - 144 [facility] mmol/L [facility] LABS Potassium 4.5 3.4 - 5.3 [facility] mmol/L [facility] LABS Chloride 110 (H) 94 - 109 [facility] mmol/L [facility] LABS Carbon Dioxide 24 20 - 32 [facility] mmol/L [facility] LABS Anion Gap 10 6 - 17 [facility] mmol/L [facility] LABS Glucose 137 (H) 60 - 99 [facility] mg/dL [facility] LABS Urea Nitrogen 48 (H) 7 - 30 [facility] mg/dL [facility] LABS Creatinine 2.02 (H) 0.66 - [facility] 1.25 mg/dL [facility] LABS GFR Estimate 34 (L) >60 [facility] mL/min/1.7 [place] m2 CAMPUS LABS GFR Estimate If 41 (L) >60 [facility] Black mL/min/1.7 [place] m2 CAMPUS LABS Calcium 9.2 8.5 - 10.4 [facility] mg/dL [facility] LABS Specimen Anatomical Collection Method Collection Time Receive d Time (Source) Location / / Volume Laterality Blood specimen 02/09/2014 7:40 AM 014 7:49 (specimen) CDT AM CDT Migel Merchant MD LAB - BLOOD ORDERABLES Performing Organization Address City/State/ZIP Code Phon e Number [facility] [address] [place] [address] [facility] LABS documented in this encounter Visit Diagnoses [...] dose documented in this encounter Care Teams Doctor Of Naprapathy Relationship Specialty Start Date End Date Momo Forbes PCP - General Family Practice 01/02/14 [facility] [address] [place] [address] Ingrid Santana, RN Registered Nurse Transplant 02/10/12 documented as of this encounter
--- OUTSIDE RECORDS SUMMARY | 2022-07-10 14:07 | XMS_ITS | Encounter Summary ---
:1950 Author Organization [place] Address [address] [place] [address] Care Team Providers Name Role Phone Ingrid Santana RN Unavailable Unavailable Momo Forbes Primary Care Provider Reason for Visit Reason Onset Date Comments Refill Request 02/12/2014 clotrimazole Encounter Details Date Type Department Care Team Description 02/12/2014 Refill Nephrology Kaitlynn Leon MD Refill Request 2nd Floor, Clinic 2A [facility] (clotrimazole) [address] [phone] Social History Tobacco Use Types Packs/Day Years [...] one month supply. Thanks! Lianne Braswell PharmD [facility] Transplant Program [phone] documented in this encounter Plan of Treatment Not on filedocumented as of this encounter Visit Diagnoses Diagnosis S/P kidney transplant Kidney replaced by transplant documented in this encounter Care Teams Piano Technician Relationship Specialty Start Date End Date Momo Forbes PCP - General Family Practice 01/02/14 [facility] [address] [place] [address] Ingrid Santana, RN Registered Nurse Transplant 02/10/12 documented as of this encounter
--- OUTSIDE RECORDS SUMMARY | 2022-07-10 14:07 | XMS_ITS | Encounter Summary ---
:1950 Author Organization [place] Address [facility] [place] [address] Care Team Providers Name Role Phone Ingrid Santana RN Unavailable Unavailable Momo Forbes Primary Care Provider Reason for Visit Reason Comments Eval/Assessment LBA Encounter Details Date Type Department Care Team Description 02/11/2014 Infusion Therapy Specialty Infusion Finger, Migel Mac y replaced by Visit and Procedure MD Nathan transplant (Primary Center [address] [place] [address] Dx[facility] [place] [address] 5 [facility] 2nd Floor [address] [phone] [place], [place] (Work) [phone] Social History Tobacco Use [...] Dear Diego Guthrie Thank you for choosing [facility] Procedure Center ([facility]) for your transplant cares. The [...] regarding the result at your appointment in [facility] tomorrow. We look forward in seeing you on your next appointment here at [facility]. Please don???t hesitate to callus at [phone] to reschedule any of your appointments or to speak with one of the [facility] registered nurses. It was a pleasure taking care of you today. Sincerely, Gladis Olvera RN [facility] [address] [place] [address]. [place] [address] documented in this encounter Progress Notes Gladis Olvera RN - 02/11/2014 8:43 AM CDT Diego Guthrie came to [facility] today for a lab and assess following a Kidney transplant on 02/02/14. Discharge date: 02/08/14 cold rolling coordinator: Leandro Kahn Phone number patient can be reached at: [phone] Physical Assessment: See physical assessment located under Document Flowsheets. Incision site: Dry dressing with modesta. Dressing changed. Small amt oozing, Small amt ecchymosis. Pt instructed on signs/symptoms of infection. Some swelling under incision, pt has known hematoma andwill have a renal ultrasound today at 2pm. Lines: MARGARET drain to bulb suction, serosanguinous drainage. 20 ml at [facility] appointment today. Gibbs: n/a Urine clarity: clear per patient report Hydration: discussed drinking 2-3 L daily Nutrition: Pt states appetite is improving Last BM: 02/10/14 evening Pain: 2 at rest, 5 with activity. Pain adequately controlled with home medications Laboratory tests: Standard labs drawn. Plan of care for today: Pt presents to [facility] for Labs & Assessment following Kid Txp on 02/02/14. Pt's creatinine up to 1.97 today, but ok per Dr. Leon considering the complications with transplant. Hgb 7.4 and pt c/o slight fatigue. Discussed with Dr. Leon and will hold off on a transfusion for now, but will continue to monitor hgb at [facility] appointments over the next 2 days. INR 2.23, EKG obtained and pt found to be in Normal Sinus Rhythm. Pt will remain on coumadin for now and will follow up with a senior research executive near [facility]. Continue daily INRs while pt is coming to [facility]. Pt's MARGARET continues to drain [...] Discharge Plan Pt will follow up with [facility] tomorrow. 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/Pole Peeling Machine Operator Helper verbalized understanding, all questions [...] Results Tacrolimus level (02/11/2014 7:40 AM CDT) [facility] gist Method Time Signature Tacrolimus Last 02/10/14 [facility] Dose 2000 [facility] LABS Tacrolimus 12.2 5.0 - [facility] Level 15.0 ug/L [facility] LABS Comment: Tacrolimus Reference Range Kidney [...] Phon e Number [facility] [address] [place], [place] [phone] [place] [address] LABS (ABNORMAL) CBC with platelets differential (02/11/2014 7:40 AM CDT) [facility] gist Method Time Signature WBC 4.4 4.0 - [facility] 11.0 [facility] 10e9/L [place] LABS RBC Count 2.39 (L) 4.4 - 5.9 [facility] 10e12/L [facility] LABS Hemoglobin 7.4 (L) 13.3 - [facility] 17.7 g/dL [facility] LABS Hematocrit 22.1 (L) 40.0 - [facility] 53.0 % [facility] LABS MCV 93 78 - 100 [facility] fl [facility] LABS MCH 31.0 26.5 - [facility] 33.0 pg [facility] LABS MCHC 33.5 31.5 - [facility] 36.5 g/dL [facility] LABS RDW 14.7 10.0 - [facility] 15.0 % [facility] LABS Platelet Count 83 (L) 150 - 450 [facility] 10e9/L [facility] LABS Diff Method Automated [facility] Method [facility] LABS % Neutrophils 80.4 % [facility] LABS % Lymphocytes 8.2 % [facility] LABS % Monocytes 5.2 % [facility] LABS % Eosinophils 5.7 % [facility] LABS % Basophils 0.0 % [facility] LABS % Immature 0.5 % [facility] Granulocytes [facility] LABS Absolute 3.5 1.6 - 8.3 [facility] Neutrophil 10e9/L [facility] LABS Absolute 0.4 (L) 0.8 - 5.3 [facility] Lymphocytes 10e9/L [facility] LABS Absolute 0.2 0.0 - 1.3 [facility] Monocytes 10e9/L [facility] LABS Absolute 0.3 0.0 - 0.7 [facility] Eosinophils 10e9/L [facility] LABS Absolute 0.0 0.0 - 0.2 [facility] Basophils 10e9/L [facility] LABS Abs Immature 0.0 0 - 0.4 [facility] Granulocytes 10e9/L [facility] LABS Specimen Anatomical Collection Method Collection Time Receive d Time (Source) Location / / Volume Laterality Blood specimen 02/11/2014 7:40 AM 014 7:41 (specimen) CDT AM CDT Kaitlynn Leon MD LAB - BLOOD ORDERABLES Performing Organization Address City/[facility]/ZIP Code Phon e Number [facility] [address] LABS (ABNORMAL) Phosphorus (02/11/2014 7:40 AM CDT) athologist Signature Phosphorus 1.9 (L) 2.5 - 4.5 [facility] mg/dL [place] LABS Specimen Anatomical Collection Method Collection Time Receive d Time (Source) Location / / Volume Laterality Blood specimen 02/11/2014 7:40 AM 014 7:41 (specimen) CDT AM CDT Kaitlynn Leon MD LAB - BLOOD ORDERABLES Performing Organization Address City/[facility]/ZIP Code Phon e Number [address] LABS Magnesium (02/11/2014 7:40 AM CDT) athologist Signature Magnesium 1.9 1.6 - 2.3 [facility] mg/dL [place] LABS Specimen Anatomical Collection Method Collection Time Receive d Time (Source) Location / / Volume Laterality Blood specimen 02/11/2014 7:40 AM 014 7:41 (specimen) CDT AM CDT Kaitlynn Leon MD LAB - BLOOD ORDERABLES Performing Organization Address City/[facility]/ZIP Code Phon e Number [address] LABS (ABNORMAL) Basic metabolic panel (02/11/2014 7:40 AM CDT) [facility] Method Time Signature Sodium 142 133 - 144 [facility] mmol/L [facility] LABS Potassium 5.4 (H) 3.4 - 5.3 [facility] mmol/L [facility] LABS Chloride 113 (H) 94 - 109 [facility] mmol/L [facility] LABS Carbon Dioxide 22 20 - 32 [facility] mmol/L [facility] LABS Anion Gap 8 6 - 17 [facility] mmol/L [facility] LABS Glucose 155 (H) 60 - 99 [facility] mg/dL [facility] LABS Urea Nitrogen 31 (H) 7 - 30 [facility] mg/dL [facility] LABS Creatinine 1.97 (H) 0.66 - [facility] 1.25 mg/dL [facility] LABS GFR Estimate 35 (L) >60 [facility] mL/min/1.7 [place] m2 CAMPUS LABS GFR Estimate If 42 (L) >60 [facility] Black mL/min/1.7 [place] [address] CAMPUS LABS Calcium 9.1 8.5 - 10.4 [facility] mg/dL [facility] LABS Specimen Anatomical Collection Method Collection Time Receive d Time (Source) Location / / Volume Laterality Blood specimen 02/11/2014 7:40 AM 014 7:41 (specimen) CDT AM CDT Kaitlynn Leon MD LAB - BLOOD ORDERABLES Performing Organization Address City/State/ZIP Code Phon e Number [phone] [place], [place] [id number] [facility] LABS documented in this encounter Visit Diagnoses Diagnosis Kidney replaced by transplant - Primary documented in this encounter Care Teams Act Tutor Relationship Specialty Start Date End Date Momo Forbes PCP - General Family Practice 01/02/14 [facility] [address] [place] [address] Ingrid Santana, RN Registered Nurse Transplant 02/10/12 documented as of this encounter
--- OUTSIDE RECORDS SUMMARY | 2022-07-10 14:07 | XMS_ITS | Encounter Summary ---
:1950 Author Organization [place] Address [facility] [place] [address] Care Team Providers Name Role Phone Ingrid Santana RN Unavailable Unavailable Momo Forbes Primary Care Provider Encounter Details Date Type Department Care Team Description 02/11/2014 Orders Only Nephrology Josseline Nice, Kidney replaced by 2nd Floor, Clinic 2A [facility]BER transplant (Primary Tommy Wilburn Dx) [address] [id number] Social History Tobacco Use Types Packs/Day Years [...] Primary documented in this encounter Care Teams Wheel Shop Supervisor Relationship Specialty Start Date End Date Momo Forbes PCP - General Family Practice 01/02/14 [facility] [address] [place] [address] Ingrid Santana RN Registered Nurse Transplant 02/10/12 documented as of this encounter
--- OUTSIDE RECORDS SUMMARY | 2022-07-10 14:07 | XMS_ITS | Encounter Summary ---
:1950 Author Organization [place] Address [facility] [place] [address] Care Team Providers Name Role Phone Ingrid Santana RN Unavailable Unavailable Momo Forbes Primary Care Provider Reason for Visit Reason Comments Eval/Assessment s/p kidney transplant 8days ago Encounter Details Date Type Department Care Team Description 02/10/2014 Infusion Therapy Specialty Infusion Finger, Migel Mac y replaced by Visit and Procedure MD Nathan transplant (Primary Center [address] [place] [address] Dx) [place] [address] 5 [facility] 2nd Floor [address] [phone] [place], [place] (Work) [address] Social History Tobacco Use [...] 10:40 AM CDT Diego Guthrie came to [facility] today for a lab and assess 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 Discharge date: 02/08/14 sales program coordinator: Leandro Kahn RN Phone number patient can be reached at: [phone] (girlfriend's cell) Physical Assessment: See physical assessment located under Document Flowsheets. Incision site: stapled, leaking tiny amount clear pink/pale yellow fluid from mid incision (1.5inch area on dressing from 3hours ago) covered with ABD Lines: MARGARET rlq; 30cc out last tamara; 10cc out overnite;; lite pink clear fluid Gibbs: na states is not having voiding difficulty Urine clarity: not asked Hydration: states he [id number] water yesterday but does not like that [...] up with [facility] lab/assess in am 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/Warp Drawer verbalized understanding, all questions answered: YES [...] Results Tacrolimus level (02/10/2014 8:37 AM CDT) [facility] Method Time Signature Tacrolimus Not Provided [facility] Last Dose [facility] LABS Tacrolimus 6.8 5.0 - [facility] Level 15.0 ug/L [facility] [...] Phon e Number [facility] [address] [place], [place] [id number] [place] [address] LABS (ABNORMAL) CBC with platelets differential (02/10/2014 8:37 AM CDT) Component Value Ref Test Analysis Performed At [facility] gist Range Method Time Signature WBC 5.5 4.0 - [facility] 11.0 [place] LABS 10e9/L RBC Count 2.53 (L) 4.4 - [facility] 5.9 [place] LABS 10e12/L Hemoglobin 7.9 (L) 13.3 - [facility] 17.7 [place] LABS g/dL Hematocrit 23.2 (L) 40.0 - [facility] 53.0 % CAMPUS LABS MCV 92 78 - 100 [facility] fl CAMPUS LABS MCH 31.2 26.5 - [facility] 33.0 pg CAMPUS LABS MCHC 34.1 31.5 - [facility] 36.5 CAMPUS LABS g/dL RDW 14.5 10.0 - [facility] 15.0 % CAMPUS LABS Platelet Count 89 (L) 150 - [facility] 450 CAMPUS LABS 10e9/L Diff [...] Code Phon e Number SYSMEX [id number] DIFFERENTIAL [facility] LABS (ABNORMAL) Phosphorus (02/10/2014 8:37 AM CDT) P athologist Signature Phosphorus 1.9 (L) 2.5 - 4.5 [facility] mg/dL CAMPUS LABS Specimen Anatomical Collection Method Collection Time Receive d Time (Source) Location / / Volume Laterality Blood specimen 02/10/2014 8:37 AM 014 8:38 (specimen) CDT AM CDT Migel Merchant MD LAB - BLOOD ORDERABLES Performing Organization Address City/State/ZIP Code Phon e Number [facility] [address] [place] [address] [facility] LABS Magnesium (02/10/2014 8:37 AM CDT) P athologist Signature Magnesium 2.0 1.6 - 2.3 [facility]ITY mg/dL CAMPUS LABS Specimen Anatomical Collection Method Collection Time Receive d Time (Source) Location / / Volume Laterality Blood specimen 02/10/2014 8:37 AM 014 8:38 (specimen) CDT AM CDT Migel Merchant MD LAB - BLOOD ORDERABLES Performing Organization Address City/[facility] Code Phon e Number [facility] [address] [place] [address] [facility] LABS (ABNORMAL) Basic metabolic panel (02/10/2014 8:37 AM CDT) Patholo gist Method Time Signature Sodium 144 133 - 144 [facility] mmol/L [facility] LABS Potassium 4.8 3.4 - 5.3 [facility] mmol/L [facility] LABS Chloride 111 (H) 94 - 109 [facility] mmol/L [facility] LABS Carbon Dioxide 22 20 - 32 [facility] mmol/L [facility] LABS Anion Gap 10 6 - 17 [facility] mmol/L [facility] LABS Glucose 128 (H) 60 - 99 [facility] mg/dL [facility] LABS Urea Nitrogen 34 (H) 7 - 30 [facility] mg/dL [facility] LABS Creatinine 1.80 (H) 0.66 - [facility] 1.25 mg/dL [facility] LABS GFR Estimate 38 (L) >60 [facility] mL/min/1.7 UNIVERSITY m2 CAMPUS LABS GFR Estimate If 46 (L) >60 [facility] Black mL/min/1.7 [place] [address] CAMPUS LABS Calcium 9.1 8.5 - 10.4 [facility] mg/dL [facility] LABS Specimen Anatomical Collection Method Collection Time Receive d Time (Source) Location / / Volume Laterality Blood specimen 02/10/2014 8:37 AM 014 8:38 (specimen) CDT AM CDT Migel Merchant MD LAB - BLOOD ORDERABLES Performing Organization Address City/State/ZIP Code Phon e Number [facility] [address] [place] [address] [facility] LABS documented in this encounter Visit Diagnoses Diagnosis Kidney replaced by transplant - Primary documented in this encounter Care Teams Computer Technologist Relationship Specialty Start Date End Date Momo Forbes PCP - General Family Practice 01/02/14 [facility] [address] [place] [phone] Ingrid Santana, RN Registered Nurse Transplant 02/10/12 documented as of this encounter
--- OUTSIDE RECORDS SUMMARY | 2022-07-10 14:07 | XMS_ITS | Encounter Summary ---
:1950 Author Organization [place] Address [facility] [place] [address] Care Team Providers Name Role Phone Ingrid Santana RN Unavailable Unavailable Momo Forbes Primary Care Provider Encounter Details Date Type Department Care Team Description 02/11/2014 Radiant Appointment [facility] 1st Floor, Clinic [address] [place], [place] [address] Social History Tobacco Use Types Packs/Day Years [...] Procedure Name Priority Date/Time Associated Diagnosis Comme [facility] US RENAL TRANSPLANT Routine 02/11/2014 2:48 [...] filedocumented in this encounter Care Teams Glass Fitter Relationship Specialty Start Date End Date Momo Forbes PCP - General Family Practice 01/02/14 [facility] [address] [place] [address] Ingrid Santana, RN Registered Nurse Transplant 02/10/12 documented as of this encounter
--- OUTSIDE RECORDS SUMMARY | 2022-07-10 14:07 | XMS_ITS | Encounter Summary ---
:1950 Author Organization [place] Address [facility] [place] [address] Care Team Providers Name Role Phone Ingrid Santana RN Unavailable Unavailable Momo Forbes Primary Care Provider Reason for Visit Reason Comments Eval/Assessment LABS, ASSESSMENT, EDUCATION AND DRESSING CHANGE. Encounter Details Date Type Department Care Team Description 02/14/2014 Infusion Therapy Specialty Infusion Kaitlynn Leon MD Kidney replaced by transplant (Primary D x); Visit and Procedure Center [facility] S/P kidney transplant [facility] [address] [phone] [place], [place] (Work) [address] Social History Tobacco Use [...] 3:25 PM CDT Diego Guthrie came to [facility] today for a lab and assess following a Kidney transplant on 02/02/14. Discharge date: 02/08/14 technical services coordinator: Leandro Kahn Phone number patient can be reached at: [phone] Physical Assessment: See physical assessment located under [...] Tuesday. 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/Clinical Administrator verbalized understanding, all questions answered: YES Discharged [...] Signature INR 2.29 (H) 0.86 - 1.14 [facility] LABS Specimen Anatomical Collection Method Collection Time Receive d Time (Source) Location / / Volume Laterality Blood specimen 02/14/2014 7:51 AM 014 7:58 (specimen) CDT AM CDT Kaitlynn Leon MD LAB - BLOOD ORDERABLES Performing Organization Address City/State/ZIP Code Phon e Number [facility] [address] [place], [place] [phone] [place] [address] LABS Tacrolimus level (02/14/2014 7:51 AM CDT) [facility] gist Method Time Signature Tacrolimus Last 1914 [facility] Dose 02/13/14 [facility] LABS Tacrolimus 7.5 5.0 - [facility] Level 15.0 ug/L [facility] LABS Comment: Tacrolimus Reference Range [...] e Number [facility] [address] [facility] LAB[facility] (ABNORMAL) CBC with platelets differential (02/14/2014 7:51 AM CDT) [facility] gist Method Time Signature WBC 6.9 4.0 - [facility] 11.0 [place] 10e9/L [place] LABS RBC Count 2.55 (L) 4.4 - 5.9 [facility] 10e12/L [facility] LABS Hemoglobin 7.8 (L) 13.3 - [facility] 17.7 g/dL [facility] LABS Hematocrit 23.4 (L) 40.0 - [facility] 53.0 % [facility] LABS MCV 92 78 - 100 [facility] fl [facility] LABS MCH 30.6 26.5 - [facility] 33.0 pg [facility] LABS MCHC 33.3 31.5 - [facility] 36.5 g/dL [facility] LABS RDW 14.9 10.0 - [facility] 15.0 % [facility] LABS Platelet Count 122 (L) 150 - 450 [facility] 10e9/L [facility] LABS Diff Method Automated [facility] Method [facility] % Neutrophils 88.7 % [facility] LABS % Lymphocytes 2.6 % [facility] LABS % Monocytes 4.5 % [facility] LABS % Eosinophils 3.8 % [facility] % Basophils 0.1 % [facility] % Immature 0.3 % [facility] Granulocytes [facility] LABS Absolute 6.1 1.6 - 8.3 [facility] Neutrophil 10e9/L [facility] LABS Absolute 0.2 (L) 0.8 - 5.3 [facility] Lymphocytes 10e9/L [facility] LABS Absolute 0.3 0.0 - 1.3 [facility] Monocytes 10e9/L [facility] LABS Absolute 0.3 0.0 - 0.7 [facility] Eosinophils 10e9/L [facility] LABS Absolute 0.0 0.0 - 0.2 [facility] Basophils 10e9/L [facility] LABS Abs Immature 0.0 0 - 0.4 [facility] Granulocytes 10e9/L [facility] LABS Specimen Anatomical Collection Method Collection Time Receive d Time (Source) Location / / Volume Laterality Blood specimen 02/14/2014 7:51 AM 014 7:53 (specimen) CDT AM CDT Joseph Quintana MD LAB - BLOOD ORDERABLES Performing Organization Address City/State/ZIP Code Phon e Number [address] LABS (ABNORMAL) Phosphorus (02/14/2014 7:51 AM CDT) P athologist Signature Phosphorus 2.4 (L) 2.5 - 4.5 [facility] mg/dL [place] LABS Specimen Anatomical Collection Method Collection Time Receive d Time (Source) Location / / Volume Laterality Blood specimen 02/14/2014 7:51 AM 014 7:53 (specimen) CDT AM CDT Joseph Quintana MD LAB - BLOOD ORDERABLES Performing Organization Address City/State/ZIP Code Phon e Number [address] LABS Magnesium (02/14/2014 7:51 AM CDT) athologist Signature Magnesium 1.6 1.6 - 2.3 [facility] mg/dL CAMPUS LABS Specimen Anatomical Collection Method Collection Time Receive d Time (Source) Location / / Volume Laterality Blood specimen 02/14/2014 7:51 AM 014 7:53 (specimen) CDT AM CDT Joseph Quintana MD LAB - BLOOD ORDERABLES Performing Organization Address City/[facility]/ZIP Code Phon e Number [facility] [address] [place] [address] [facility] LABS (ABNORMAL) Basic metabolic panel (02/14/2014 7:51 AM CDT) [facility] Method Time Signature Sodium 143 133 - 144 [facility] mmol/L [facility] LABS Potassium 5.4 (H) 3.4 - 5.3 [facility] mmol/L [facility] LABS Chloride 113 (H) 94 - 109 [facility] mmol/L [facility] LABS Carbon Dioxide 20 20 - 32 [facility] mmol/L [facility] LABS Anion Gap 9 6 - 17 [facility] mmol/L [facility] LABS Glucose 193 (H) 60 - 99 [facility] mg/dL [facility] LABS Urea Nitrogen 18 7 - 30 [facility] mg/dL [facility] LABS Creatinine 1.82 (H) 0.66 - [facility] 1.25 mg/dL [facility] LABS GFR Estimate 38 (L) >60 [facility] mL/min/1.7 [facility] m2 CAMPUS LABS GFR Estimate If 46 (L) >60 [facility] Black mL/min/1.7 [place] m2 CAMPUS LABS Calcium 9.2 8.5 - 10.4 [facility] mg/dL [facility] LABS Specimen Anatomical Collection Method Collection Time Receive d Time (Source) Location / / Volume Laterality Blood specimen 02/14/2014 7:51 AM 014 7:53 (specimen) CDT AM CDT Joseph Quintana MD LAB - BLOOD ORDERABLES Performing Organization Address City/[facility]/ZIP Code Phon e Number [facility] [address] [place] [address] [facility] LABS documented in this encounter Visit Diagnoses Diagnosis Kidney replaced by transplant - Primary S/P kidney transplant Kidney replaced by transplant documented in this encounter Care Teams Wrist Closer Relationship Specialty Start Date End Date Momo Forbes PCP - General Family Practice 01/02/14 [facility] [address] [place] [address] Ingrid Santana, RN Registered Nurse Transplant 02/10/12 16 documented as of this encounter
--- OUTSIDE RECORDS SUMMARY | 2022-07-10 14:07 | XMS_ITS | Encounter Summary ---
:1950 Author Organization [place] Address [address] [place] [address] Care Team Providers Name Role Phone Ingrid Santana RN Unavailable Unavailable Momo Forbes Primary Care Provider Reason for Referral CV Cardio consult - Closed Specialty Diagnoses / Procedures Referred By Contact Refer red To Contact Diagnoses Atrial fibrillation (H) Kaitlynn Leon MD [facility] [address] [place] [address] Fax: Referral ID Status Reason Start Date Expiration Date Visits Requ ested Visits Authorized [id number] Closed 02/12/2014 08/11/2014 1 1 Reason for Visit Reason Comments RECHECK Encounter Details Date Type Department Care Team Description 02/12/2014 Office Visit Specialty Infusion Kaitlynn Leon, S/P kidn ey transplant (Primary Dx); and Procedure Center Atrial fibrillation (H); [place] Hypopho sphatemia; Critical access hospital Nausea; 2nd Floor [address] Immunosuppression (H) [address] [facility] [address] [place], [place] [phone] [address] (Work) [phone] Social History Tobacco Use Types Packs/Day Years [...] Diego Guthrie Thank you for choosing [facility] ([facility]) for your transplant cares. The following information is a summary of our appointment as well as important reminders. Please make sure your phone is available today because I will call to update you with your anti-rejection drug levels and possibly make changes to your anti- rejection dosages. Additional information: -Decrease your coumadin dose to 5 mg every evening -Please return to [facility] on for Labs & assessment -Call us or Leandro Kahn with any questions. -Your Home Care Nurse should begin visits on TuesdayFebruary 14. If you do not hear from them by Tuesday morning, try to reach them at [phone]. We look forward in seeing you on your next appointment here at [facility]. Please don???t hesitate to callus at [phone] to reschedule any of your appointments or to speak with one of the [facility] registered nurses. It was a pleasure taking care of you today. 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
--- OUTSIDE RECORDS SUMMARY | 2022-07-10 14:07 | XMS_ITS | Encounter Summary ---
:1950 Author Organization [place] Address [facility] [place] [address] Care Team Providers Name Role Phone Ingrid Santana RN Unavailable Unavailable Momo Forbes Primary Care Provider Reason for Visit Reason Comments Eval/Assessment LBA Encounter Details Date Type Department Care Team Description 02/11/2014 Office Visit Specialty Infusion Kaitlynn Leon, Complica tion of transplanted kidney (Primary Dx); and Procedure Center Anemia; [place] [facility] HTN (hy pertension); [facility] Immunosuppression (H); [address]nd Floor [address] Hypophosphatemia [address] [facility] [address] [place], [place] [phone] [address] (Work) [phone] Social History Tobacco Use Types Packs/Day Years [...] Years of Education: 14 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 Discharge: 02/08/2014 Using Medcard: Yes Med review: Went over all meds and dosing with patient and Tete. Went over Prograf and Cellcept side effects. Medication questions/concerns: Patient requested that we transfer 4 rx's (to profile) from local pharmacy to us here. 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 Using medbox: Yes Viewed DVD: Didn't bring up Pain: #2-3, feels good, rarely using Oxycodone Other Concerns: none No further questions for this pharmacist. Yi Londono [facility] [phone] documented in this encounter Plan of Treatment [...] Signature INR 2.28 (H) 0.86 - 1.14 [facility] LABS Specimen Anatomical Collection Method Collection Time Receive d Time (Source) Location / / Volume Laterality 02/11/2014 9:30 AM 4 9:41 CDT AM CDT Kaitlynn Leon MD LAB - BLOOD ORDERABLES Performing Organization Address City/State/ZIP Code Phon e Number [phone] [place] [address] LABS documented in this encounter Visit Diagnoses Diagnosis Complication of transplanted kidney - Pr imary Complications of transplanted kidney Anemia Anemia, unspecified HTN (hypertension) Unspecified essential hypertension Immunosuppression (H) Unspecified disorder of immune mechanism Hypophosphatemia Disorders of phosphorus metabolism documented in this encounter Care Teams Player Manager Relationship Specialty Start Date End Date Momo Forbes PCP - General Family Practice 01/02/14 [facility] [address] [place] [address] Ingrid Santana, RN Registered Nurse Transplant 02/10/12 documented as of this encounter
[2022-07-10 14:08] LABS: PCR FLU A Negative PCR FLU A (Negative); PCR FLU B Negative PCR FLU B (Negative); PCR RSV Negative PCR RSV (Negative)
--- OUTSIDE RECORDS SUMMARY | 2022-07-10 14:08 | XMS_ITS | Encounter Summary ---
:1950 Author Organization [place] Address [address] [place] [address] Care Team Providers Name Role Phone Ingrid Santana RN Unavailable Unavailable Momo Forbes Primary Care Provider Encounter Details Date Type Department Care Team Description 02/02/2014 Results Only LABORATORY RESULTS Migel Merchant MD [address] [place] [address] [address] [place], [place] [id number] (Wo rk) Social History Tobacco Use Types [...] T/B Crossmatch Auto (02/02/2014 6:51 PM CDT) [facility] Method Time Signature Crossmatch Donor:ELINOR GUTHRIE [...] 6:51 PM 4 6:58 CDT PM CDT Miegl Merchant MD LAB - IMMUNOLOGY ORDERABLES Performing Organization Address City/State/ZIP Code Phon e Number [facility] Immunology/Histocompatabil [place], [place] [address] [facility] [address] [facility] [address] Building, Room 3-580 HISTOTRAC documented in this encounter Visit Diagnoses Not on filedocumented in this encounter Care Teams Agribusiness Internship Relationship Specialty Start Date End Date Momo Forbes PCP - General Family Practice 01/02/14 [facility] [address] [place] [address] Ingrid Santana, RN Registered Nurse Transplant 02/10/12 documented as of this encounter
--- OUTSIDE RECORDS SUMMARY | 2022-07-10 14:08 | XMS_ITS | Encounter Summary ---
:1950 Author Organization [facility] Address [address] [place] [address] Care Team Providers Name Role Phone Ingrid Santana RN Unavailable Unavailable Momo Forbes Primary Care Provider Reason for Referral Home Health Therapies & Aides Specialty Diagnoses / Procedures Referred By Contact Refer red To Contact Adeline Diaz MD [place] [phone] Referral ID Status Reason Start Date Expiration Date Visits Requ ested Visits Authorized ome Health Therapies & Aides Specialty Diagnoses / Procedures Referred By Contact Gary phelps To Contact Adeline Diaz MD [address] [address] Referral ID Status Reason Start Date Expiration Date Visits Requ ested Visits Authorized ome Health Therapies & Aides Specialty Diagnoses / Procedures Referred By Contact Gary phelps To Contact [facility] [address] [place], [place] [phone] Referral ID Status Reason Start Date Expiration Date Visits Requ ested Visits Authorized Reason for Visit Auth/Cert - Closed Specialty Diagnoses / Procedures Referred By Contact Gary phelps To Contact Med Surg Diagnoses end stage renal disease dialysis End stage renal failure on dialysis Renal Failure Uu U7a Procedures TRANSPLANT KIDNEY RECIPIENT DONOR [address] [place] [address] Phone: Referral ID Status Reason Start Date Expiration Date Visits Requ ested Visits Authorized [id number] Closed 02/04/2014 08/03/2014 1 1 Encounter Details Date Type Department Care Team Description [facility]/02[facility] [address] [place] [address] S/P kidney transplant (Primary Dx); 02/08/2014 [facility] [address] [place]w Rust MD [address] [place] [address] Atrial fibrillation (H) Bank [address] [place] [address] Social History Tobacco Use Types [...] Physician Discharge Summary Patient ID: Diego Guthrie [id number] 63 year old 1950 Admit date: 02/02/2014 [...] Take 1 tablet by mouth daily. B hfeqiim-X-memac acid (NEPHROCAPS) 1 MG capsule Take 1 [...] located on the second floor of the [facility] next to the Transplant Clinic. Your [...] of these appointments you will meetwith a profiler operator and meet your content coordinator. Your nurse will also be in communication with your surgeon and profiler operator as needed. The direct number to the [facility] is [phone]. In the [facility] [...] the hospital. This will be located in [facility] transplant surgery clinic on the second floor.Your transplant surgeon is: Dr. Merchant. You have a ureteral stent in place which needs to be removed in 4-6 weeks. If a care team coordinator scheduler does not contact you for this, please contact your content coordinator. If you have modesta in place, they will be removed in 3 weeks after operation. Notify your coordinator if you have pain over your kidney, fever greater than 101.5F, or decreased urine output. Notify your coordinator immediately if you are ever unable to take your immunosuppressive medications for any reason. Wellness Director [phone] Diet recommendations post-transplant: Heart healthy dietary habits terminal gauger (low saturated/trans fat, low sodium). High protein [...] >2. He can be seen by any brick pitcher in the outpatient setting for coordination. Continue metoprolol 25 po bid until he is r e-evaluated. We did attempt inpatient REFUGIO guided cardioversion, but the patient developed significant bleeding while on heparin. José Miguel Alvarez M.D. Manager Dialysis Joseph Quintana MD - 02/08/2014 12:35 PM [...] Dr. Quintana. Sina Robison MD Nephrology Fellow [phone] Attestation: This patient has been seen and [...] Ramires RN - 02/07/2014 2:25 PM CDT Exchange Consultant D: Diego Guthrie 63 year old [...] find it. Pt does not care which [facility] agency will follow him--There are only 2 to choose from, so I chose the Local [facility] [phone]/ --I called and left a message with Estrella Fletcher and I fax'd his records tothem--pt will need start of care approx Thursday 02/15. Pt is new on warfarin and I called his PCP's office and they have INR nurses Tuesday-Tuesday their fax # is [phone] (when N visits are completed --pt will call main clinic # to schedule INR draws). 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 I verified his address and phone #(is his cell) on the facesheet. Pt has not met his OP childcare administrator: Leandro Kahn, yet--I sent Leandro an in basket message today-with plan. A: possible d/c to home Tuesday P: see above-will follow and will call [facility] to confirm they can accept [...] Dr. Quintana. Sina Robison MD Nephrology Fellow [phone] Attestation: This patient has been seen and [...] assistance Medical Decision Making: Medium Subsequent visit 59329 (moderate level decision making) PATO/Fellow/Resident Provider: Adeline [...] Rodriguez MD - 02/06/2014 4:25 PM CDT [facility] Cardiology Progress Note I have [...] Dr. Quintana. Sina Robison MD Nephrology Fellow [phone] Attestation: This patient has been seen and [...] Dr. Quintana. Sina Robison MD Nephrology Fellow [phone] Attestation: This patient has been seen and [...] REPLACEMENT ONLY ??? insulin (regular) Stopped (02/05/14 8827) Shiva Kahn RN - 02/05/2014 4:47 PM CDT ADAPTED PHYSICAL EDUCATION TEACHER NOTE I met with the patient and his yesterday at [facility] PCU-6B (telemetry unit) to discuss transition from inpatient to outpatient care following kidney translantation. 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 Joseph Rodriguez MD - 02/05/2014 11:16 AM CDT [facility] Cardiology Progress Note I have [...] 02/02/2014. Pt lives alone in [place] though reports that his girlfriend in in the process of moving in with him. Pt girlfriend, Tete, will be present when pt returns home but she works multimedia services manager. Pt was on dialysis for 2 1/2 years prior to transplant. Pt works independently but reports that he currently has no income coming in. Pt has primary insurancethrough Medicare and Secondary insurance through [employer]. Pt has no co-pays for his immunosuppressants and a high out of pocket cost for DANILO Salcido to look into grants for pt for [employer]. I: Met with pt to introduce this scientific technical writer and explain sw role and services [...] needs arise prior to discharge. CECY Kearns, WEIGHT CHECKER Indu Calixto MD - 02/05/2014 1:50 AM [...] Adds Type of Visit Initial PT Evaluation Bookstore Clerk Bookstore Clerk Present no Language Andorran Living Environment (R) Lives With alone Living Arrangements ([facility]) Home Accessibility no concerns Number of [...] up when pt is available. CECY Kearns, [facility] [phone] phone [phone] pager Joseph Quintana MD - 02/04/2014 11:51 [...] Dr. Quintana. Sina Robison MD Nephrology Fellow [phone] Attestation: This patient has been seen and [...] for this basename: PTHI, in the last 24740 hours IRON STUDIES No results found for this basename: IRON, FEB, IRONSAT, THEE, in the last 20316 hours Imaging: All imaging studies reviewed by [...] or equal to 12.0 mlU/mL. Adeline Diaz [phone] Attestation: The patient has been seen and [...] donor kidney transplant, with stent on 02/02/14. FISH ROE PROCESSOR donor. Graft function:uncertain, Cr slightly up. Slow [...] . Medical Decision Making: Medium Subsequent visit 96407 (moderate level decision making) PATO/Fellow/Resident Provider: Caitlin [...] note and orders. Migel Merchant MD, PhD user experience designer Abdominal Organ Transplantation Carmelita Rosario, RN - 02/03/2014 9:38 AM CDT Patient removed from the UNOS waitlist after donor kidney transplant. UNOS ID is [id number]. Rafaela Cardona - 02/03/2014 9:17 AM CDT [...] followed general diet. Patient reports good appetite/intake FROG FARMER, no nutrition issues/concnerns. CURRENT NUTRITION ORDERS - [...] DDKT ASSESSED NUTRITION NEEDS: Estimated Energy Needs: 0770-3797+ kcals (25-30+ Kcal/Kg) Justification: maintenance post-transplant Estimated [...] 8 weeks). Rec follow heart-healthy diet terminal gauger. Implementation Nutrition education: Provided instruction on post-transplant diet with discussion regarding protein sources and high protein needs in acute post-tx phase. Reviewed recommendations to follow low fat/lowsodium diet terminal gauger and discussed heart healthy diet tips. Discussed [...] adjustment. Rafaela Cardona RD, LD Weekend Coverage [phone] Carla, Jose Galarza MD - 02/03/2014 4:57 [...] Doing well postoperatively. Pain: Controlled by Dilaudid GUN EXAMINER Diet: NPO tonight Volume Status: Borderline low UOP, continue MIVF, 0.9 % NS 500 cc bolus given for low UOP, CVP not accurate, systolic in 100-110 Recheck hemoglobin and potassium normal. Rest of the plan per primary team. Will continue to follow. Jose Aguirre MD PGY-1.................02/03/2014 Surgery Cross Cover Pager:[phone] documented in this encounter H&P Notes Caitlin [...] 1 tablet by mouth daily. ??? B hpyeted-F-wgxre acid (NEPHROCAPS) 1 MG capsule Take 1 [...] Transplant Fellow, Caitlin Morales MD Surgery Cross-Cover Pager:[phone] Addendum: Donor 59 yo F FISH ROE PROCESSOR, CVA, h/o HTN, CMV+, EBV+. Kidney bx [...] note and orders. Migel Merchant MD, PhD user experience designer Abdominal Organ Transplantation documented in this encounter Consult Notes Joseph Rodriguez MD - 02/04/2014 11:03 AM CDTAssociated Order(s): CARDIOLOGY IP CONSULT [facility] CARDIOLOGY CONSULT SERVICE INITIAL CONSULT NOTE [...] 1 tablet by mouth daily. ??? 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 José Miguel Alvarez MD Manager Dialysis Pager: [phone] February 04, 2014 Kaitlynn Leon MD - 02/03/2014 9:30 AM CDT Nephrology Initial Consult February 03, 2014 Diego Guthrie Date of : 1950 Date of Admission:02/02/2014 Primary care provider: Momo Forbes Requesting physician: Migel Merchant MD ASSESSMENT AND RECOMMENDATIONS: 1. DDKT - FISH ROE PROCESSOR -59 yo women; slow graft function-no immediate need for dialysis , but may require tomorrow if UO does not pickle solution maker. We will monitor Induction with Thymo/Cellcept [...] h/o type 2 Dm, who received DDKT (FISH ROE PROCESSOR) on 02/02/2014 donor kidney had severe atherosclerotic [...] ??? Cataract iol, rt/lt both eyes MEDICATIONS: FROG FARMER Meds Prior to Admission medications Medication Sig Last Dose Taking? Auth Provider Calcium Carbonate-Vitamin D (CALCIUM + D PO) Take by mouth daily. Reported, Patient lisinopril (PRINIVIL,ZESTRIL) 40 MG tablet Take 40 mg by mouth 2 times daily. Reported, Patient METOPROLOL SUCCINATE PO Take by mouth daily. Reported, Patient aspirin 81 MG tablet Take 1 tablet by mouth daily. Reported, Patient B kbuvlrt-E-qezdx acid (NEPHROCAPS) 1 MG capsule Take 1 [...] Intravenous Central line Once ??? HYDROmorphone Intravenous GUN EXAMINER Infusion Meds ??? 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 Alvin Diego Cardiovascular Disease Fellow [phone] Patient seen and examined by me with [...] Cullen MD, PhD Jarad Cullen MD, PhD [phone] documented in this encounter Nursing Notes Gretta Mary RN - 02/02/2014 11:[address] Owens with Transplant Surgery notified of stat lab results. Magnesium replaced. Dr. Blank with Anesthesia reviewed chest x-ray. CVC not deep enough to give accurate CVP readings, however all lumens aspirate blood well. Patient is ok to transfer to unit 6B per [facility]. documented in this encounter Miscellaneous Notes Plan of Care - Amanda Hernandez RN - 02/08/2014 3:44 PM CDT Problem: IP GENERAL POC-ADULT,OB,BEHAVIORAL FVCPM Goal: Individualization/Patient-Specific Goal (Adult,OB,Behavioral The patient and/or their administrative representative will achieve their patient-specific goals related [...] Individualization/Patient-Specific Goal (Adult,OB,Behavioral The patient and/or their administrative representative will achieve their patient-specific goals related [...] Individualization/Patient-Specific Goal (Adult,OB,Behavioral The patient and/or their administrative representative will achieve their patient-specific goals related [...] Individualization/Patient-Specific Goal (Adult,OB,Behavioral The patient and/or their administrative representative will achieve their patient-specific goals related [...] after classes. Plan of Care - Reina Kneny, PT - 02/07/2014 10:24 AM CDT Problem: [...] weeks. Inez Luevano MS, RD, LD Pager [phone] Pharmacy-Immunosuppression Monitoring - Em Vasquez, [facility] - 02/07/2014 9:06 AM CDT [...] continue to follow. Em Vasquez, Pharm.D., [facility] Pager [phone] Plan of Care - Annmarie Colby RN - 02/07/2014 5:11 AM CDT Problem: IP GENERAL POC-ADULT,OB,BEHAVIORAL FVCPM Goal: Individualization/Patient-Specific Goal (Adult,OB,Behavioral The patient and/or their administrative representative will achieve their patient-specific goals related [...] Individualization/Patient-Specific Goal (Adult,OB,Behavioral The patient and/or their administrative representative will achieve their patient-specific goals related [...] increased fluid intake, urine color is becoming trauma surgeon( tea color/bloody- >dark sy/tea color). Incisional pain [...] Physical Therapy Goals The patient and/or their administrative representative will achieve their patient-specific goals related [...] Physical Therapy Goals The patient and/or their administrative representative will achieve their patient-specific goals related [...] Individualization/Patient-Specific Goal (Adult,OB,Behavioral The patient and/or their administrative representative will achieve their patient-specific goals related [...] Individualization/Patient-Specific Goal (Adult,OB,Behavioral The patient and/or their administrative representative will achieve their patient-specific goals related [...] Physical Therapy Goals The patient and/or their administrative representative will achieve their patient-specific goals related [...] at this time. Pharmacy - Cayetano Olivera [facility] - 02/05/2014 12:26 PM CDT Visited 02/05/2014 in hospital room prior to discharge to review medications, review discharge process and review specialty pharmacy program. Med Review: Reviewed patient's medications and medical conditions. Patient would like to use [facility] to manage all medications. Medcard: [...] Specialty Pharmacy review: Discussed the benefits of [facility] and Diego has enrolled. Also gave him supplies (blood pressure cuff, thermometer, and pill box) Other concerns: No other concerns at this time. No further questions for this pharmacist. Inez Cox, Student Pharmacist Biomedical Engineering Aide [facility] [address] [place] [address] Cayetano Olivera, Pharmacist [facility] [phone] Pharmacy-Anticoagulation Service - Teresa Wright RP - [...] Individualization/Patient-Specific Goal (Adult,OB,Behavioral The patient and/or their administrative representative will achieve their patient-specific goals related [...] hard time making full sentences. When scientific technical writer came on shift at 8pm patient [...] Individualization/Patient-Specific Goal (Adult,OB,Behavioral The patient and/or their administrative representative will achieve their patient-specific goals related [...] Physical Therapy Goals The patient and/or their administrative representative will achieve their patient-specific goals related [...] by friend. Pt transferred to chair, VSS, threat monitoring analyst on, oriented to room. Pharmacy-Admission Medication History - Teresa Wright [facility] - 02/04/2014 11:54 AM CDT Admission medication history interview status for the 02/02/2014 admission is complete. See [facility] admission navigator for allergy information, prior to admission medications and immunization status. Medication history interview sources (including written lists, pill bottles, clinic record):Patient Medication history source reliability:Good Primary pharmacy:[facility] phone number: [phone] Changes made to FROG FARMER medication list (reason) Added: Vitamin D 1,000 [...] at Unknown time Yes Reported, Patient B lrlsoks-P-exwdj acid (NEPHROCAPS) 1 MG capsule Take 1 [...] Individualization/Patient-Specific Goal (Adult,OB,Behavioral The patient and/or their administrative representative will achieve their patient-specific goals related [...] 45 minutes and remains in A-fib via vehicle monitor technician. Repeat EKG around 1000 showed continued Afibl. [...] Physical Therapy Goals The patient and/or their administrative representative will achieve their patient-specific goals related to the plan of care. The patient-specific goals include: PT 7A: HOLD for AM per RN - pt with a-fib this morning. Plan of Care - Alisson Diane RN - 02/04/2014 6:45 AM CDT Problem: IP GENERAL POC-ADULT,OB,BEHAVIORAL FVCPM Goal: Individualization/Patient-Specific Goal (Adult,OB,Behavioral The patient and/or their administrative representative will achieve their patient-specific goals related [...] Individualization/Patient-Specific Goal (Adult,OB,Behavioral The patient and/or their administrative representative will achieve their patient-specific goals related [...] to yellow. Pharmacy-Transplant Note - Davina Schuster [facility] - 02/03/2014 4:28 PM CDT [...] Individualization/Patient-Specific Goal (Adult,OB,Behavioral The patient and/or their administrative representative will achieve their patient-specific goals related to the plan of care. The patient-specific goals include: 1. Pt will remain hemodynamically stable 2. Pt will have adequate urine output 3. Pt will be free of falls. RD Patient will verbalize understanding of 3 important aspects of post-transplant diet guidelines. PO intake >50% meals TID once diet adv. Report taken from [facility] on 6B; patient transferred to from 6B via wheelchair around 1500. Patientsettled into room, oriented to floor/room and call light. VS taken. Orders released. Continue ordersas written and notify MD with any concerns. Plan of Care - Sofie Christianson RN - 02/03/2014 2:59 PM CDT Problem: IP GENERAL POC-ADULT,OB,BEHAVIORAL FVCPM Goal: Plan of Care Review (Adult,OB,Behavioral) The patient and/or their administrative representative will communicate an understanding of their [...] algorithm 2, 1 unit now. Pt still qqcyycwug7F NC to maintain sats above 90 % [...] Individualization/Patient-Specific Goal (Adult,OB,Behavioral The patient and/or their administrative representative will achieve their patient-specific goals related [...] Intermittent sharp R lower abd pain. Dilaudid GUN EXAMINER encouraged, increased to 0.2/10/1.2. R lower abd [...] 0200 made 20cc/hr, at 0300 made 30cc/hr. [place]/red tinged urine. MIVF @ 125/hr. VSS. HR 70s, BPs 100s-120s/60s. No new orders at this time. Will continue to monitor. Plan of Care - Tasia Andrade RN - 02/03/2014 12:00 AM CDT Pt arrived to 6B from PACU, s/p DDKT. A&O x3-4. VSS. [place]/red urine output. Small amt drainage on abd [...] patient received anorgan offer for a Donor FISH ROE PROCESSOR (expanded criteria donor) kidney transplant. After discussing [...] The UNOS number of the donor is [id number]. The crossmatch was done prospectively; and the [...] reconstruction. FACULTY SURGEON: Migel Merchant M.D., Ph.D. FELLOW/AUTO REPAIR TECHNICIAN SURGEON: Caitlin Owens MD fellow ANESTHESIA: None VERIFICATION: Prior to incision, I verified the donor ABO and recipient ABO. After the donor organ arrived to the operating room and prior to anastamosis, I visually verified that the donor identification, blood type, and other vital data were compatible with the recipient. FINDINGS: Donor type: FISH ROE PROCESSOR (expanded criteria donor) Organ: kidney Graft Injury: [...] Individualization/Patient-Specific Goal (Adult,OB,Behavioral The patient and/or their administrative representative will achieve their patient-specific goals related [...] Individualization/Patient-Specific Goal (Adult,OB,Behavioral The patient and/or their administrative representative will achieve their patient-specific goals related [...] LARES - BEAKER POCT Performing Organization Address [facility] Phon e Number FV POINT OF CARE [...] LARES - BEAKER POCT Performing Organization Address [facility] Phon e Number FV POINT OF CARE TEST, GLUCOSE POINT OF CARE TEST, GLUCOSE Tacrolimus level (02/08/2014 6:42 AM CDT) [facility] gist Method Time Signature Tacrolimus Not Provided [facility] Last Dose [facility] Tacrolimus 10.0 5.0 - [facility] Level [...] ORDERABLES Performing Organization Address City/[facility] Code Phon e Number [facility] [address] [place] [address] [facility] LABS (ABNORMAL) INR (02/08/2014 6:42 AM CDT) P athologist Signature INR 1.28 (H) 0.86 - 1.14 [facility] Specimen Anatomical Collection Method Collection Time Receive d Time (Source) Location / / Volume Laterality Blood specimen 02/08/2014 6:42 AM 014 6:43 (specimen) CDT AM CDT Omaira Chavez PA-C LAB - BLOOD ORDERABLES Performing Organization Address City/State/ZIP Code Phon e Number [facility] [address] LABS (ABNORMAL) Basic metabolic panel (02/08/2014 6:42 AM CDT) Patholo gist Method Time Signature Sodium 144 133 - 144 [facility] mmol/L [facility] Potassium 3.9 3.4 - 5.3 [facility] mmol/L [facility] Chloride 110 (H) 94 - 109 [facility] mmol/L [facility] Carbon Dioxide 25 20 - 32 [facility] mmol/L [facility] Anion Gap 8 6 - 17 [facility] mmol/L [facility] Glucose 144 (H) 60 - 99 [facility] mg/dL [facility] Urea Nitrogen 66 (H) 7 - 30 [facility] mg/dL [facility] Creatinine 2.38 (H) 0.66 - [facility] 1.25 mg/dL [facility] GFR Estimate 28 (L) >60 [facility] mL/min/1.7 [place] m2 CAMPUS LABS GFR Estimate If 34 (L) >60 [facility] Black mL/min/1.7 [place] [id number] CAMPUS LABS Calcium 9.4 8.5 - 10.4 [facility] mg/dL [facility] Specimen Anatomical Collection Method Collection Time Receive d Time (Source) Location / / Volume Laterality Blood specimen 02/08/2014 6:42 AM 014 6:43 (specimen) CDT AM CDT Omaira Chavez PA-C LAB - BLOOD ORDERABLES Performing Organization Address City/State/ZIP Code Phon e Number [facility] [address] [place], [place] [id number] [place] [address] LABS Phosphorus (02/08/2014 6:42 AM CDT) P [...] e Number [facility] [address] LABS Magnesium (02/08/2014 6:42 AM CDT) P athologist Signature Magnesium 2.2 1.6 - 2.3 [facility] mg/dL CAMPUS LABS Specimen Anatomical Collection Method Collection Time Receive d Time (Source) Location / / Volume Laterality Blood specimen 02/08/2014 6:42 AM 014 6:43 (specimen) CDT AM CDT Omaira Chavez PA-C LAB - BLOOD ORDERABLES Performing Organization Address City/State/ZIP Code Phon e Number [facility] [address] [place] [address] [facility] LABS (ABNORMAL) CBC with platelets differential (02/08/2014 6:42 AM CDT) Patholo gist Method Time Signature WBC 4.8 4.0 - [facility] 11.0 [facility] 10e9/L [place] LABS RBC Count 2.56 (L) 4.4 - 5.9 [facility] 10e12/L [facility] LABS Hemoglobin 7.8 (L) 13.3 - [facility] 17.7 g/dL [facility] LABS Hematocrit 23.5 (L) 40.0 - [facility] 53.0 % [facility] LABS MCV 92 78 - 100 [facility] fl [facility] LABS MCH 30.5 26.5 - [facility] 33.0 pg [facility] LABS MCHC 33.2 31.5 - [facility] 36.5 g/dL [facility] LABS RDW 14.5 10.0 - [facility] 15.0 % [facility] LABS Platelet Count 70 (L) 150 - 450 [facility] 10e9/L [facility] LABS Diff Method Automated [facility] Method [facility] LABS % Neutrophils 86.3 % [facility] LABS % Lymphocytes 3.1 % [facility] LABS % Monocytes 9.4 % [facility] LABS % Eosinophils 1.0 % [facility] LABS % Basophils 0.0 % [facility] LABS % Immature 0.2 % [facility] Granulocytes [facility] LABS Absolute 4.1 1.6 - 8.3 [facility] Neutrophil 10e9/L [facility] LABS Absolute 0.2 (L) 0.8 - 5.3 [facility] Lymphocytes 10e9/L [facility] LABS Absolute 0.5 0.0 - 1.3 [facility] Monocytes 10e9/L [facility] LABS Absolute 0.1 0.0 - 0.7 [facility] Eosinophils 10e9/L [facility] LABS Absolute 0.0 0.0 - 0.2 [facility] Basophils 10e9/L [facility] LABS Abs Immature 0.0 0 - 0.4 [facility] Granulocytes 10e9/L [facility] LABS Specimen Anatomical Collection Method Collection Time Receive d Time (Source) Location / / Volume Laterality Blood specimen 02/08/2014 6:42 AM 014 6:43 (specimen) CDT AM CDT Omaira Chavez PA-C LAB - BLOOD ORDERABLES Performing Organization Address City/State/ZIP Code Phon e Number [address] [address] [facility] LABS (ABNORMAL) Glucose by meter [...] LARES - ROBERT POCT Performing Organization Address City/[facility] [...] Signature INR 1.25 (H) 0.86 - 1.14 [facility] LABS Specimen Anatomical Collection Method Collection Time Receive d Time (Source) Location / / Volume Laterality Blood specimen 02/07/2014 4:23 AM 014 4:24 (specimen) CDT AM CDT Omaira Chavez PA-C LAB - BLOOD ORDERABLES Performing Organization Address City/State/ZIP Code Phon e Number [address] LABS (ABNORMAL) Basic metabolic panel (02/07/2014 4:23 AM CDT) Patholo gist Method Time Signature Sodium 143 133 - 144 [facility] mmol/L [facility] LABS Potassium 4.1 3.4 - 5.3 [facility] mmol/L [facility] LABS Chloride 109 94 - 109 [facility] mmol/L [facility] LABS Carbon Dioxide 24 20 - 32 [facility] mmol/L [facility] LABS Anion Gap 10 6 - 17 [facility] mmol/L [facility] LABS Glucose 185 (H) 60 - 99 [facility] mg/dL [facility] LABS Urea Nitrogen 77 (H) 7 - 30 [facility] mg/dL [facility] LABS Creatinine 3.02 (H) 0.66 - [facility] 1.25 mg/dL [facility] LABS GFR Estimate 21 (L) >60 [facility] mL/min/1.7 [facility] m2 CAMPUS LABS GFR Estimate If 26 (L) >60 [facility] Black mL/min/1.7 [place] [address] CAMPUS LABS Calcium 9.3 8.5 - 10.4 [facility] mg/dL [facility] LABS Specimen Anatomical Collection Method Collection Time Receive d Time (Source) Location / / Volume Laterality Blood specimen 02/07/2014 4:23 AM 014 4:24 (specimen) CDT AM CDT Omaira Chavez PA-C LAB - BLOOD ORDERABLES Performing Organization Address City/[facility]/ZIP Code Phon e Number [address] LABS Phosphorus (02/07/2014 4:23 AM CDT) [...] Phon e Number [facility] [address] [facility] LABS Magnesium (02/07/2014 4:23 AM CDT) P athologist Signature Magnesium 2.1 1.6 - 2.3 [facility] mg/dL [place] LABS Specimen Anatomical Collection Method Collection Time Receive d Time (Source) Location / / Volume Laterality Blood specimen 02/07/2014 4:23 AM 014 4:24 (specimen) CDT AM CDT Omaira Chavez PA-C LAB - BLOOD ORDERABLES Performing Organization Address City/State/ZIP Code Phon e Number [facility] [address] [place] [address] [facility] LABS (ABNORMAL) CBC with platelets differential (02/07/2014 4:23 AM CDT) Patholo gist Method Time Signature WBC 2.7 (L) 4.0 - [facility] 11.0 [facility] 10e9/L [place] LABS RBC Count 2.80 (L) 4.4 - 5.9 [facility] 10e12/L [facility] LABS Hemoglobin 8.5 (L) 13.3 - [facility] 17.7 g/dL [facility] LABS Hematocrit 25.8 (L) 40.0 - [facility] 53.0 % [facility] LABS MCV 92 78 - 100 [facility] fl [facility] LABS MCH 30.4 26.5 - [facility] 33.0 pg [facility] LABS MCHC 32.9 31.5 - [facility] 36.5 g/dL [facility] LABS RDW 14.5 10.0 - [facility] 15.0 % [facility] LABS Platelet Count 77 (L) 150 - 450 [facility] 10e9/L [facility] LABS Diff Method Automated [facility] Method [facility] LABS % Neutrophils 87.5 % [facility] LABS % Lymphocytes 3.8 % [facility] LABS % Monocytes 8.7 % [facility] LABS % Eosinophils 0.0 % [facility] LABS % Basophils 0.0 % [facility] LABS % Immature 0.0 % [facility] Granulocytes [facility] LABS Absolute 2.3 1.6 - 8.3 [facility] Neutrophil 10e9/L [facility] LABS Absolute 0.1 (L) 0.8 - 5.3 [facility] Lymphocytes 10e9/L [facility] LABS Absolute 0.2 0.0 - 1.3 [facility] Monocytes 10e9/L [facility] LABS Absolute 0.0 0.0 - 0.7 [facility] Eosinophils 10e9/L UNIVERSITY CAMPUS LABS Absolute 0.0 0.0 - 0.2 [facility] Basophils 10e9/L [facility] LABS Abs Immature 0.0 0 - [...] [facility]/ZIP Code Phon e Number [address] LABS (ABNORMAL) Hemoglobin A1c (02/07/2014 4:23 AM CDT) Analysis Performed At Patho logist Time Signature Hemoglobin A1C 6.1 (H) 4.3 - 6.0 [facility] LABS Specimen Anatomical Collection Method Collection Time Receive d Time (Source) Location / / Volume Laterality Blood specimen 02/07/2014 4:23 AM 014 4:24 (specimen) CDT AM CDT Omaira Chavez PA-C LAB - BLOOD ORDERABLES Performing Organization Address City/State/ZIP Code Phon e Number [facility] [address] LABS (ABNORMAL) Glucose by meter (02/06/2014 [...] LAB - BEAJ POCT Performing Organization Address [facility] Phon e Number [facility] POINT OF CARE TEST, GLUCOSE POINT OF CARE TEST, GLUCOSE (ABNORMAL) Hemoglobin (02/06/2014 4:59 PM CDT) P athologist Signature Hemoglobin 8.8 (L) 13.3 - 17.7 [facility] g/dL [place] LABS Specimen Anatomical Collection Method Collection Time Receive d Time (Source) Location / / Volume Laterality Blood specimen 02/06/2014 4:59 PM 014 5:12 (specimen) CDT PM CDT Omaira Chavez PA-C LAB - BLOOD ORDERABLES Performing Organization Address City/[facility]/ZIP Code Phon e Number [address] [address] [facility] LABS (ABNORMAL) Glucose by meter [...] PTT 154 (HH) 22 - 37 sec [facility] LABS Comment: Critical Value called to and read back Whitney Poon RN AT 0642. PW Specimen Anatomical Collection Method Collection Time Receive d Time (Source) Location / / Volume Laterality 02/06/2014 5:57 AM 4 6:03 CDT AM CDT Adeline Diaz MD LAB - BLOOD ORDERABLES Performing Organization Address City/[facility]/ZIP Code Phon e Number [facility] [address] LABS Heparin Xa (10a) Level (02/06/2014 5:57 AM CDT) athologist Signature Heparin 10A 0.92 IU/mL [facility] LABS Comment: Therapeutic Range: ?? UFH: [...] e Number [facility] [address] LABS (ABNORMAL) INR (02/06/2014 5:57 AM CDT) athologist Signature INR 1.32 (H) 0.86 - 1.14 [facility] LABS Specimen Anatomical Collection Method Collection Time Receive d Time (Source) Location / / Volume Laterality Blood specimen 02/06/2014 5:57 AM 014 6:03 (specimen) CDT AM CDT Omaira Chavez PA-C LAB - BLOOD ORDERABLES Performing Organization Address City/[facility]/ZIP Code Phon e Number [facility] [address] LABS (ABNORMAL) Basic metabolic panel (02/06/2014 5:57 AM CDT) [facility] Method Time Signature Sodium 142 133 - 144 [facility] mmol/L [facility] LABS Potassium 4.7 3.4 - 5.3 [facility] mmol/L [facility] LABS Chloride 106 94 - 109 [facility] mmol/L [facility] LABS Carbon Dioxide 28 20 - 32 [facility] mmol/L [facility] LABS Anion Gap 8 6 - 17 [facility] mmol/L [facility] LABS Glucose 196 (H) 60 - 99 [facility] mg/dL [facility] LABS Urea Nitrogen 71 (H) 7 - 30 [facility] mg/dL [facility] LABS Creatinine 3.96 (H) 0.66 - [facility] 1.25 mg/dL [facility] LABS GFR Estimate 15 (L) >60 [facility] mL/min/1.7 [facility] m2 CAMPUS LABS GFR Estimate If 19 (L) >60 [facility] Black mL/min/1.[address] LABS Calcium 9.4 8.5 - 10.4 [...] e Number [facility] [address] LABS Phosphorus (02/06/2014 5:57 AM CDT) [...] Phon e Number [facility] [address] [place], [place] [id number] [place] [address] LABS Magnesium (02/06/2014 5:57 AM CDT) P athologist Signature Magnesium 1.9 1.6 - 2.3 [facility] mg/dL [place] LABS Specimen Anatomical Collection Method Collection Time Receive d Time (Source) Location / / Volume Laterality Blood specimen 02/06/2014 5:57 AM 014 6:03 (specimen) CDT AM CDT Omaira Chavez PA-C LAB - BLOOD ORDERABLES Performing Organization Address City/[facility]/ZIP Code Phon e Number [facility] [address] [place] [address] [facility] LABS (ABNORMAL) CBC with platelets differential (02/06/2014 5:57 AM CDT) Patholo gist Method Time Signature WBC 5.1 4.0 - [facility] 11.0 [facility] 10e9/L [place] LABS RBC Count 3.13 (L) 4.4 - 5.9 [facility] 10e12/L [facility] LABS Hemoglobin 9.6 (L) 13.3 - [facility] 17.7 g/dL [facility] LABS Hematocrit 29.0 (L) 40.0 - [facility] 53.0 % [facility] LABS MCV 93 78 - 100 [facility] fl [facility] LABS MCH 30.7 26.5 - [facility] 33.0 pg [facility] LABS MCHC 33.1 31.5 - [facility] 36.5 g/dL [facility] LABS RDW 14.5 10.0 - [facility] 15.0 % [facility] LABS Platelet Count 85 (L) 150 - 450 [facility] 10e9/L [facility] LABS Diff Method Automated [facility] Method [facility] LABS % Neutrophils 86.0 % [facility] LABS % Lymphocytes 5.1 % [facility] LABS % Monocytes 8.7 % [facility] LABS % Eosinophils 0.0 % [facility] LABS % Basophils 0.0 % [facility] LABS % Immature 0.2 % [facility] Granulocytes [facility] LABS Absolute 4.4 1.6 - 8.3 [facility] Neutrophil 10e9/L [facility] LABS Absolute 0.3 (L) 0.8 - 5.3 [facility] Lymphocytes 10e9/L [facility] LABS Absolute 0.4 0.0 - 1.3 [facility] Monocytes 10e9/L [facility] LABS Absolute 0.0 0.0 - 0.7 [facility] [...] Phon e Number [facility] [address] [place], [place] [phone] [place] [address] LABS (ABNORMAL) Lipid panel reflex to direct LDL (02/06/2014 5:57 AM CDT) P athologist Signature Cholesterol 126 <200 mg/dL [facility] LABS Comment: LDL Cholesterol is the primary guide to therapy. The NCEP recommends further evaluation of: patients with cholesterol greater than 200 mg/dL if additional risk facto rs are present, cholesterol greater than 240 mg/dL, triglycerides greater than 1 50 mg/dL, or HDL less than 40 mg/dL. Triglycerides 100 0 - 150 mg/dL [facility] [place] LABS HDL Cholesterol 35 (L) >40 mg/dL [facility] [place] LABS LDL Cholesterol Calculated 71 0 - 129 mg/dL [facility] LABS Comment: LDL Cholesterol is the primary guide to therapy: LDL-cholesterol goal in high risk patients is <100 mg/dL and in very high risk patients is <70 mg/dL. VLDL-Cholesterol 20 0 - 30 mg/dL [facility] LABS Cholesterol/HDL Ratio 3.6 0.0 - 5.0 [facility] [place] LABS Specimen Anatomical Collection Method Collection Time Receive d Time (Source) Location / / Volume Laterality Blood specimen 02/06/2014 5:57 AM 06/18/2 014 6:03 (specimen) CDT AM CDT Omaira Chavez PA-C LAB - BLOOD ORDERABLES Performing Organization Address City/State/ZIP Code Phon e Number [facility] [address] [place] [address] [facility] LABS Tacrolimus level (02/06/2014 5:57 AM CDT) [facility] gist Method Time Signature Tacrolimus S Negative [facility] Last Dose [facility] LABS Tacrolimus 12.7 5.0 - [facility] Level [...] [facility]/ZIP Code Phon e Number [facility] [address] LABS (ABNORMAL) Glucose by meter (02/06/2014 [...] Signature Hemoglobin 10.2 (L) 13.3 - [facility] 17.7 g/dL [place] LABS Specimen Anatomical Collection Method Collection Time Receive d Time (Source) Location / / Volume Laterality Blood specimen 02/06/2014 1:02 AM 014 1:11 (specimen) CDT AM CDT Deysi Alicea MD LAB - BLOOD ORDERABLES Performing Organization Address City/[facility]/ZIP Code Phon e Number [address] LABS (ABNORMAL) Glucose by meter (02/05/2014 [...] P athologist Signature Heparin 10A 0.64 IU/mL [facility] LABS Comment: Therapeutic Range: ?? UFH: [...] Address City/State/ZIP Code Phon e Number [address] LABS (ABNORMAL) Glucose by meter (02/05/2014 [...] LARES - BEAJ POCT Performing Organization Address City/[facility] [...] LARES - BEAKER POCT Performing Organization Address City/[facility]/ZIP Code Phon e Number [facility] POINT OF CARE TEST, GLUCOSE POINT OF CARE TEST, GLUCOSE (ABNORMAL) INR (02/05/2014 12:04 PM CDT) P athologist Signature INR 1.24 (H) 0.86 - 1.14 [facility] LABS Specimen Anatomical Collection Method Collection Time Receive d Time (Source) Location / / Volume Laterality Blood specimen 02/05/2014 12:04 4 (specimen) PM CDT 12:10 PM CDT Teresa Wright [facility] LAB - BLOOD ORDERABLES Performing Organization Address City/[facility]/ZIP Code Phon e Number [address] [address] [facility] LABS (ABNORMAL) CBC with platelets (02/05/2014 12:04 PM CDT) Patholo gist Method Time Signature WBC 7.4 4.0 - 11.0 [facility] 10e9/L [facility] LABS RBC Count 3.31 (L) 4.4 - 5.9 [facility] 10e12/L [facility] LABS Hemoglobin 10.3 (L) 13.3 - [facility] 17.7 g/dL [facility] LABS Hematocrit 31.0 (L) 40.0 - [facility] 53.0 % [facility] LABS MCV 94 78 - 100 [facility] fl [facility] LABS MCH 31.1 26.5 - [facility] 33.0 pg [facility] LABS MCHC 33.2 31.5 - [facility] 36.5 g/dL [facility] LABS RDW 14.7 10.0 - [facility] 15.0 % [facility] LABS Platelet Count 91 (L) 150 - 450 [facility] 10e9/L [facility] LABS Specimen Anatomical Collection Method Collection Time Receive d Time (Source) Location / / Volume Laterality Blood specimen 02/05/2014 12:04 4 (specimen) PM CDT 12:10 PM CDT Omaira Chavez PA-C LAB - BLOOD ORDERABLES Performing Organization Address City/State/ZIP Code Phon e Number [phone] [place] [address] LABS (ABNORMAL) Glucose by meter (02/05/2014 11:25 [...] 02/05/2014 AM CDT 10:39 AM CDT Migel LARSE - ROBERT POCT Performing Organization Address City/[facility] [...] 9:43 AM 4 9:45 CDT AM CDT Mgiel Merchant MD LAB - BEAJ [...] LAB - BEAJ POCT Performing Organization Address City/[facility]/ZIP Code Phon e Number [facility] POINT OF CARE TEST, GLUCOSE POINT OF CARE TEST, GLUCOSE (ABNORMAL) Basic metabolic panel (02/05/2014 7:02 AM CDT) [facility] gist Method Time Signature Sodium 143 133 - 144 [facility] mmol/L [facility] LABS Potassium 4.3 3.4 - 5.3 [facility] mmol/L [facility] LABS Chloride 107 94 - 109 [facility] mmol/L [facility] LABS Carbon Dioxide 25 20 - 32 [facility] mmol/L [facility] LABS Anion Gap 10 6 - 17 [facility] mmol/L [facility] LABS Glucose 123 (H) 60 - 99 [facility] mg/dL [facility] LABS Urea Nitrogen 66 (H) 7 - 30 [facility] mg/dL [facility] LABS Creatinine 4.77 (H) 0.66 - [facility] 1.25 mg/dL [facility] LABS GFR Estimate 12 (L) >60 [facility] mL/min/1.7 [facility] m2 CAMPUS LABS GFR Estimate If 15 (L) >60 [facility] Black mL/min/1.7 [place] [address] CAMPUS LABS Calcium 9.4 8.5 - 10.4 [facility] mg/dL [facility] LABS Specimen Anatomical Collection Method Collection Time Receive d Time (Source) Location / / Volume Laterality Blood specimen 02/05/2014 7:02 AM 014 7:05 (specimen) CDT AM CDT Omaira Chavze PA-C LAB - BLOOD ORDERABLES Performing Organization Address City/[facility]/ZIP Code Phon e Number [facility] [address] LABS (ABNORMAL) Phosphorus (02/05/2014 7:02 AM CDT) P athologist Signature Phosphorus 5.7 (H) 2.5 - 4.5 [facility] mg/dL [place] LABS Specimen Anatomical Collection Method Collection Time Receive d Time (Source) Location / / Volume Laterality Blood specimen 02/05/2014 7:02 AM 014 7:05 (specimen) CDT AM CDT Omaira Chavez PA-C LAB - BLOOD ORDERABLES Performing Organization Address City/[facility]/ZIP Code Phon e Number [facility] [address] LABS Magnesium (02/05/2014 7:02 AM CDT) P athologist Signature Magnesium 2.0 1.6 - 2.3 [facility] mg/dL [place] LABS Specimen Anatomical Collection Method Collection Time Receive d Time (Source) Location / / Volume Laterality Blood specimen 02/05/2014 7:02 AM 014 7:05 (specimen) CDT AM CDT Omaira Chavez PA-C LAB - BLOOD ORDERABLES Performing Organization Address City/[facility]/ZIP Code Phon e Number [facility] [address] [place], [place] [phone] [place] [address] LABS (ABNORMAL) CBC with platelets differential (02/05/2014 7:02 AM CDT) Patholo gist Method Time Signature WBC 8.9 4.0 - [facility] 11.0 [facility] 10e9/L [place] LABS RBC Count 3.20 (L) 4.4 - 5.9 [facility] 10e12/L [facility] LABS Hemoglobin 9.7 (L) 13.3 - [facility] 17.7 g/dL [facility] LABS Hematocrit 30.0 (L) 40.0 - [facility] 53.0 % [facility] LABS MCV 94 78 - 100 [facility] fl [facility] LABS MCH 30.3 26.5 - [facility] 33.0 pg [facility] LABS MCHC 32.3 31.5 - [facility] 36.5 g/dL [facility] LABS RDW 14.6 10.0 - [facility] 15.0 % [facility] LABS Platelet Count 96 (L) 150 - 450 [facility] 10e9/L [facility] LABS Diff Method Automated [facility] Method [facility] LABS % Neutrophils 90.2 % [facility] LABS % Lymphocytes 4.4 % [facility] LABS % Monocytes 5.2 % [facility] LABS % Eosinophils 0.0 % [facility] % Basophils 0.0 % [facility] LABS % Immature 0.2 % [facility] Granulocytes [facility] LABS Absolute 8.1 1.6 - 8.3 [facility] Neutrophil 10e9/L [facility] LABS Absolute 0.4 (L) 0.8 - 5.3 [facility] Lymphocytes 10e9/L [facility] LABS Absolute 0.5 0.0 - 1.3 [facility] Monocytes 10e9/L [facility] LABS Absolute 0.0 0.0 - 0.7 [facility] [...] Address City/State/ZIP Code Phon e Number [id number] [place] [address] LABS (ABNORMAL) Parathormone intact (02/05/2014 7:02 AM CDT) Patholo gist Method Time Signature Parathyroid 362 (H) 12 - 72 [facility] Hormone Intact pg/mL [facility] LABS Specimen Anatomical Collection Method Collection Time Receive d Time (Source) Location / / Volume Laterality Blood specimen 02/05/2014 7:02 AM 014 7:05 (specimen) CDT AM CDT Sina Robison MD LAB - BLOOD ORDERABLES Performing Organization Address [facility] Code Phon e Number [address] LABS (ABNORMAL) Ferritin (02/05/2014 7:02 AM CDT) P athologist Signature Ferritin 932 (H) 20 - 300 [facility] ng/mL [place] LABS Specimen Anatomical Collection Method Collection Time Receive d Time (Source) Location / / Volume Laterality Blood specimen 02/05/2014 7:02 AM 014 7:05 (specimen) CDT AM CDT Sina Robison MD LAB - BLOOD ORDERABLES Performing Organization Address [facility] Code Phon e Number [address] LABS (ABNORMAL) Iron and iron binding capacity (02/05/2014 7:02 AM CDT) Analysis Performed At Patho logist Time Signature Iron 119 35 - 180 [facility] ug/dL [facility] Iron Binding 207 (L) 240 - 430 [facility] Cap ug/dL [facility] Iron Saturation 58 (H) 15 - 46 % [facility] Index [facility] Specimen Anatomical Collection Method Collection Time Receive d Time (Source) Location / / Volume Laterality Blood specimen 02/05/2014 7:02 AM 014 7:05 (specimen) CDT AM CDT Sina Robison MD LAB - BLOOD ORDERABLES Performing Organization Address City/[facility]/ZIP Code Phon e Number [facility] [address] LABS (ABNORMAL) Glucose by meter (02/05/2014 [...] LAB - BEAJ POCT Performing Organization Address City/[facility] [...] LAB - ROBERT POCT Performing Organization Address City/[facility] [...] LARES - ROBERT POCT Performing Organization Address City/[facility] [...] LARES - ROBERT POCT Performing Organization Address City/[facility] [...] LARES - ROBERT POCT Performing Organization Address City/[facility] [...] Carr MD ECG ORDERABLES Performing Organization Address City/[facility]/ZIP Code Phon e Number RADIOLOGY RESULTS (ABNORMAL) Glucose by meter (02/04/2014 10:56 PM CDT) P athologist Signature Glucose 161 (H) 60 - 99 POINT OF CARE mg/dL TEST, GLUCOSE Specimen Anatomical Collection Method Collection Time Receive d Time (Source) Location / / Volume Laterality 02/04/2014 10:56 02/04/2014 PM CDT 11:00 PM CDT Migel LARES - ROBERT POCT Performing Organization Address City[facility] LARES - ROBERT POCT Performing Organization Address City/[facility] [...] LAB - ROBERT POCT Performing Organization Address City/[facility] [...] Signature Troponin I 0.016 0.000 - [facility] 0.034 ug/L [place] LABS Specimen Anatomical Collection Method Collection Time Receive d Time (Source) Location / / Volume Laterality Blood specimen 02/04/2014 7:10 PM 014 7:23 (specimen) CDT PM CDT Adeline Diaz MD LAB - BLOOD ORDERABLES Performing Organization Address City/[facility]/ZIP Code Phon e Number [id number] [place] [address] LABS (ABNORMAL) Glucose by meter (02/04/2014 7:01 [...] 4:10 CDT PM CDT Migel LARES - [place] POCT Performing Organization Address [...] Troponin I (02/04/2014 12:42 PM CDT) athologist [facility] Troponin I ES 0.025 0.000 - [facility] 0.034 ug/L CAMPUS LABS Specimen Anatomical Collection Method Collection Time Receive d Time (Source) Location / / Volume Laterality Blood specimen 02/04/2014 12:42 4 (specimen) PM CDT 12:45 PM CDT Adeline Diaz MD LAB - BLOOD ORDERABLES Performing Organization Address City/State/ZIP Code Phon e Number [facility] 500 [place] [address] [facility] LABS (ABNORMAL) Glucose by meter (02/04/2014 12:27 PM CDT) P athologist Signature Glucose 140 (H) 60 - 99 POINT OF CARE mg/dL TEST, GLUCOSE Specimen Anatomical Collection Method Collection Time Receive d Time (Source) Location / / Volume Laterality 02/04/2014 12:27 02/04/2014 PM CDT 12:30 PM CDT Migel LARES - ROBERT POCT Performing Organization Address [facility]/ZIP Code Phon e Number [...] LARES - BEAJ POCT Performing Organization Address City/[facility] [...] LAB - ROBERT POCT Performing Organization Address [facility]/ZIP Code Phon e Number FV POINT OF CARE TEST, GLUCOSE POINT OF CARE TEST, GLUCOSE EKG 12-lead, complete (02/04/2014 9:21 AM CDT) [facility] gist Method Time Signature Interpretation ECG Click View RADIOLOGY Image link RESULTS to view waveform and result Specimen (Source) Anatomical Collection Method Collection Time Re ceived Time Location / / Volume Laterality 02/04/2014 9:21 AM CDT Omaira Chavez PA-C ECG ORDERABLES Performing Organization Address [facility]/ZIP [facility] Phon e Number RADIOLOGY RESULTS (ABNORMAL) Glucose by meter (02/04/2014 9:02 AM CDT) P athologist Signature Glucose 203 (H) 60 - 99 POINT OF CARE mg/dL TEST, GLUCOSE Specimen Anatomical Collection Method Collection Time Receive d Time (Source) Location / / Volume Laterality 02/04/2014 9:02 AM 4 9:05 CDT AM CDT Migel Merchant MD LAB - ROBERT POCT Performing Organization Address [facility]/ZIP Code Phon e Number [...] LAB - ROBERT POCT Performing Organization Address [facility]/ZIP [facility] Phon e Number FV POINT OF CARE [...] LAB - ROBERT POCT Performing Organization Address [facility] Phon e Number FV POINT OF CARE [...] Owens MD ECG ORDERABLES Performing Organization Address [facility] Phon e Number RADIOLOGY RESULTS (ABNORMAL) Glucose [...] Troponin I ES <0.012 0.000 - [facility] 0.034 ug/L CAMPUS LABS Specimen Anatomical Collection Method Collection Time Receive d Time (Source) Location / / Volume Laterality 02/04/2014 5:49 AM 201 4 5:51 CDT AM CDT Caitlin Owens MD LAB - BLOOD ORDERABLES Performing Organization Address City/State/ZIP Code Phon e Number [facility] [address] LABS (ABNORMAL) Basic metabolic panel (02/04/2014 5:49 AM CDT) Patholo gist Method Time Signature Sodium 142 133 - 144 [facility] mmol/L [facility] Potassium 4.9 3.4 - 5.3 [facility] mmol/L [facility] Chloride 107 94 - 109 [facility] mmol/L [facility] [place] [facility] Carbon Dioxide 23 20 - 32 [facility] mmol/L [facility] Anion Gap 12 6 - 17 [facility] mmol/L [facility] Glucose 151 (H) 60 - 99 [facility] mg/dL [facility] [place] [facility] Urea Nitrogen 57 (H) 7 - 30 [facility] mg/dL [facility] [place] [facility] Creatinine 5.94 (H) 0.66 - [facility] 1.25 mg/dL [facility] GFR Estimate 10 (L) >60 [facility] mL/min/1.7 [facility] m2 CAMPUS LABS GFR Estimate If 12 (L) >60 [facility] Black mL/min/1.7 [place] [address] CAMPUS LABS Calcium 9.4 8.5 - 10.4 [facility] mg/dL [facility] Specimen Anatomical Collection Method Collection Time Receive d Time (Source) Location / / Volume Laterality Blood specimen 02/04/2014 5:49 AM 014 5:51 (specimen) CDT AM CDT Omaira Chavez PA-C LAB - BLOOD ORDERABLES Performing Organization Address City/State/ZIP Code Phon e Number [facility] [address] LABS (ABNORMAL) Phosphorus (02/04/2014 5:49 AM CDT) athologist Signature Phosphorus 6.3 (H) 2.5 - 4.5 [facility] mg/dL [place] LABS Specimen Anatomical Collection Method Collection Time Receive d Time (Source) Location / / Volume Laterality Blood specimen 02/04/2014 5:49 AM 014 5:51 (specimen) CDT AM CDT Omaira Chavez PA-C LAB - BLOOD ORDERABLES Performing Organization Address City/[facility] Phon e Number [facility] [address] LABS Magnesium (02/04/2014 5:49 AM CDT) athologist Signature Magnesium 2.1 1.6 - 2.3 [facility] mg/dL [place] LABS Specimen Anatomical Collection Method Collection Time Receive d Time (Source) Location / / Volume Laterality Blood specimen 02/04/2014 5:49 AM 014 5:51 (specimen) CDT AM CDT Omaira Chavez PA-C LAB - BLOOD ORDERABLES Performing Organization Address City/State/[facility] Code Phon e Number [facility] [address] [place] [address] [facility] LABS (ABNORMAL) CBC with platelets differential (02/04/2014 5:49 AM CDT) [facility] gist Method Time Signature WBC 13.8 (H) 4.0 - [facility] 11.0 [place] 10e9/L [place] LABS RBC Count 3.10 (L) 4.4 - 5.9 [facility] 10e12/L [facility] Hemoglobin 9.5 (L) 13.3 - [facility] 17.7 g/dL [facility] Hematocrit 28.7 (L) 40.0 - [facility] 53.0 % [facility] MCV 93 78 - 100 [facility] fl [facility] MCH 30.6 26.5 - [facility] 33.0 pg [facility] MCHC 33.1 31.5 - [facility] 36.5 g/dL [facility] RDW 14.6 10.0 - [facility] 15.0 % [facility] Platelet Count 91 (L) 150 - 450 [facility] 10e9/L [facility] LABS Diff Method Automated [facility] Method [facility] % Neutrophils 95.8 % [facility] % Lymphocytes 1.2 % [facility] % Monocytes 2.8 % [facility] % Eosinophils 0.0 % [facility] [facility] % Basophils 0.0 % [facility] % Immature 0.2 % [facility] Granulocytes [facility] Absolute 13.2 (H) 1.6 - 8.3 [facility] Neutrophil 10e9/L [facility] Absolute 0.2 (L) 0.8 - 5.3 [facility] Lymphocytes 10e9/L [facility] Absolute 0.4 0.0 - 1.3 [facility] Monocytes 10e9/L [facility] Absolute 0.0 0.0 - 0.7 [facility] [...] Address City/State/ZIP Code Phon e Number [id number] [place] [address] LABS (ABNORMAL) Glucose by meter (02/04/2014 5:33 [...] LARES - ROBERT POCT Performing Organization Address [facility]/ZIP Code Phon e Number [...] LARES - ROBERT POCT Performing Organization Address [facility] Code Phon e Number FV POINT [...] LARES - ROBERT POCT Performing Organization Address [facility] Code Phon e Number FV POINT [...] CDT Migel JONES POCT Performing Organization Address [facility] Code Phon e Number FV POINT [...] LARES - ROBERT POCT Performing Organization Address City/[facility]/ZIP Code Phon e Number FV POINT OF CARE TEST, GLUCOSE POINT OF CARE TEST, GLUCOSE Potassium (02/03/2014 10:16 PM CDT) athologist Signature Potassium 4.8 3.4 - 5.3 [facility] mmol/L CAMPUS LABS Specimen Anatomical Collection Method Collection Time Receive d Time (Source) Location / / Volume Laterality Blood specimen 02/03/2014 10:16 4 (specimen) PM CDT 10:19 PM CDT Caitlin Owens MD LAB - BLOOD ORDERABLES Performing Organization Address [facility] Phon e Number [address] LABS (ABNORMAL) Hemoglobin (02/03/2014 10:16 PM CDT) athologist Signature Hemoglobin 9.4 (L) 13.3 - 17.7 [facility] g/dL [place] LABS Specimen Anatomical Collection Method Collection Time Receive d Time (Source) Location / / Volume Laterality Blood specimen 02/03/2014 10:16 4 (specimen) PM CDT 10:19 PM CDT Caitlin Owens MD LAB - BLOOD ORDERABLES Performing Organization Address City/[facility]/ZIP [facility] Phon e Number [facility] [address] LABS (ABNORMAL) Glucose by meter (02/03/2014 9:55 PM CDT) athologist Signature Glucose 167 (H) 60 - 99 POINT OF CARE mg/dL TEST, GLUCOSE Specimen Anatomical Collection Method Collection Time Receive d Time (Source) Location / / Volume Laterality 02/03/2014 9:55 PM 4 CDT 10:00 PM CDT Migel Merchant MD LAB - BEAJ POCT Performing Organization Address City/[facility] [...] LAB - BEAJ POCT Performing Organization Address City/[facility] [...] Signature Potassium 4.7 3.4 - 5.3 [facility] mmol/L CAMPUS LABS Specimen Anatomical Collection Method Collection Time Receive d Time (Source) Location / / Volume Laterality Blood specimen 02/03/2014 6:52 PM 014 6:53 (specimen) CDT PM CDT Caitlin Owens MD LAB - BLOOD ORDERABLES Performing Organization Address City/[facility]/ZIP Code Phon e Number [facility] [address] LABS (ABNORMAL) Hemoglobin (02/03/2014 6:52 PM CDT) athologist Signature Hemoglobin 9.6 (L) 13.3 - 17.7 [facility] g/dL [place] LABS Specimen Anatomical Collection Method Collection Time Receive d Time (Source) Location / / Volume Laterality Blood specimen 02/03/2014 6:52 PM 014 6:53 (specimen) CDT PM CDT Caitlin Owens MD LAB - BLOOD ORDERABLES Performing Organization Address City/[facility]/ZIP Code Phon e Number [facility] [address] LABS (ABNORMAL) Glucose by meter (02/03/2014 6:00 PM CDT) athologist Signature Glucose 140 (H) 60 - 99 POINT OF CARE mg/dL TEST, GLUCOSE Specimen Anatomical Collection Method Collection Time Receive d Time (Source) Location / / Volume Laterality 02/03/2014 6:00 PM 4 6:05 CDT PM CDT Migel JONES POCT Performing Organization Address City/[facility] [...] CDT Migel JONES POCT Performing Organization Address City/[facility] [...] LAB - BEAKER POCT Performing Organization Address [facility] Phon e Number FV POINT OF CARE TEST, GLUCOSE POINT OF CARE TEST, GLUCOSE Potassium (02/03/2014 1:41 PM CDT) athologist Signature Potassium 4.7 3.4 - 5.3 [facility] mmol/L CAMPUS LABS Specimen Anatomical Collection Method Collection Time Receive d Time (Source) Location / / Volume Laterality Blood specimen 02/03/2014 1:41 PM 014 1:43 (specimen) CDT PM CDT Caitlin Owens MD LAB - BLOOD ORDERABLES Performing Organization Address [facility] Code Phon e Number [address] LABS (ABNORMAL) Hemoglobin (02/03/2014 1:41 PM CDT) athologist Signature Hemoglobin 9.8 (L) 13.3 - 17.7 [facility] g/dL [place] LABS Specimen Anatomical Collection Method Collection Time Receive d Time (Source) Location / / Volume Laterality Blood specimen 02/03/2014 1:41 PM 014 1:43 (specimen) CDT PM CDT Caitlin Owens MD LAB - BLOOD ORDERABLES Performing Organization Address City/[facility] Phon e Number [address] UN[facility]ERSITY [facility]AMP[facility] LABS (ABNORMAL) Glucose by [...] LAB - ROBERT POCT Performing Organization Address City/[facility] [...] Signature Potassium 4.8 3.4 - 5.3 [facility] mmol/L [place] LABS Specimen Anatomical Collection Method Collection Time Receive d Time (Source) Location / / Volume Laterality Blood specimen 02/03/2014 10:11 4 (specimen) AM CDT 10:23 AM CDT Caitlin Owens MD LAB - BLOOD ORDERABLES Performing Organization Address City/[facility]/ZIP Code Phon e Number [facility] [address] [place], [place] [phone] [place] [address] LABS (ABNORMAL) Hemoglobin (02/03/2014 10:11 AM CDT) athologist Signature Hemoglobin 9.7 (L) 13.3 - 17.7 [facility] g/dL [place] LABS Specimen Anatomical Collection Method Collection Time Receive d Time (Source) Location / / Volume Laterality Blood specimen 02/03/2014 10:11 4 (specimen) AM CDT 10:23 AM CDT Caitlin Owens MD LAB - BLOOD ORDERABLES Performing Organization Address City/[facility]/ZIP Code Phon e Number [facility] [address] [place], [place] [id number] [place] [address] LABS (ABNORMAL) Glucose by meter (02/03/2014 9:58 AM CDT) athologist Signature Glucose 168 (H) 60 - 99 POINT OF CARE mg/dL TEST, GLUCOSE Specimen Anatomical Collection Method Collection Time Receive d Time (Source) Location / / Volume Laterality 02/03/2014 9:58 AM 4 CDT 10:00 AM CDT Migel LARES - ROBERT POCT Performing Organization Address City/[facility] [...] LARES - ROBERT POCT Performing Organization Address City/[facility] [...] LARES - ROBERT POCT Performing Organization Address [facility] Phon e Number FV POINT OF CARE [...] LARES - ROBERT POCT Performing Organization Address [facility] Phon e Number FV POINT OF CARE [...] LARES - BEAJ POCT Performing Organization Address [facility] Phon e Number FV POINT OF CARE TEST, GLUCOSE POINT OF CARE TEST, GLUCOSE (ABNORMAL) Basic metabolic panel (02/03/2014 5:38 AM CDT) [facility] gist Method Time Signature Sodium 141 133 - 144 [facility] mmol/L [facility] [place] [facility] Potassium 4.4 3.4 - 5.3 [facility] mmol/L [facility] Chloride 105 94 - 109 [facility] mmol/L [facility] Carbon Dioxide 20 20 - 32 [facility] mmol/L [facility] [place] [facility] Anion Gap 15 6 - 17 [facility] mmol/L [facility] Glucose 170 (H) 60 - 99 [facility] mg/dL [facility] Urea Nitrogen 49 (H) 7 - 30 [facility] mg/dL [facility] Creatinine 6.38 (H) 0.66 - [facility] 1.25 mg/dL [facility] GFR Estimate 9 (L) >60 [facility] mL/min/1.7 [place] m2 CAMPUS LABS GFR Estimate If 11 (L) >60 [facility] Black mL/min/1.7 [place] m2 CAMPUS LABS Calcium 9.1 8.5 - 10.4 [facility] mg/dL [facility] Specimen Anatomical Collection Method Collection Time Receive d Time (Source) Location / / Volume Laterality Blood specimen 02/03/2014 5:38 AM 014 5:40 (specimen) CDT AM CDT Omaira Chavez PA-C LAB - BLOOD ORDERABLES Performing Organization Address City/[facility]/ZIP Code Phon e Number [facility] [address] LABS (ABNORMAL) Phosphorus (02/03/2014 5:38 AM CDT) P athologist Signature Phosphorus 4.7 (H) 2.5 - 4.5 [facility] mg/dL [place] [facility] Specimen Anatomical Collection Method Collection Time Receive d Time (Source) Location / / Volume Laterality Blood specimen 02/03/2014 5:38 AM 014 5:40 (specimen) CDT AM CDT Omaira Chavez PA-C LAB - BLOOD ORDERABLES Performing Organization Address City/State/ZIP Code Phon e Number [facility] [address] LABS Magnesium (02/03/2014 5:38 AM CDT) P athologist Signature Magnesium 2.0 1.6 - 2.3 [facility] mg/dL [place] LAB[facility] Specimen Anatomical Collection Method Collection Time Receive d Time (Source) Location / / Volume Laterality Blood specimen 02/03/2014 5:38 AM 014 5:40 (specimen) CDT AM CDT Omaira Chavez PA-C LAB - BLOOD ORDERABLES Performing Organization Address City/State/ZIP Code Phon e Number [facility] [address] LABS (ABNORMAL) CBC with platelets differential (02/03/2014 5:38 AM CDT) Patholo gist Method Time Signature WBC 13.2 (H) 4.0 - [facility] 11.0 [facility] 10e9/L [place] LABS RBC Count 3.20 (L) 4.4 - 5.9 [facility] 10e12/L [facility] Hemoglobin 9.9 (L) 13.3 - [facility] 17.7 g/dL [facility] Hematocrit 30.2 (L) 40.0 - [facility] 53.0 % [facility] MCV 94 78 - 100 [facility] fl [facility] MCH 30.9 26.5 - [facility] 33.0 pg [facility] MCHC 32.8 31.5 - [facility] 36.5 g/dL [facility] RDW 14.5 10.0 - [facility] 15.0 % [facility] Platelet Count 108 (L) 150 - 450 [facility] 10e9/L [facility] Diff Method Automated [facility] Method [facility] % Neutrophils 96.9 % [facility] % Lymphocytes 0.7 % [facility] % Monocytes 2.1 % [facility] % Eosinophils 0.0 % [facility] % Basophils 0.1 % [facility] % Immature 0.2 % [facility] Granulocytes [facility] Absolute 12.8 (H) 1.6 - 8.3 [facility] Neutrophil 10e9/L [facility] Absolute 0.1 (L) 0.8 - 5.3 [facility] Lymphocytes 10e9/L [facility] Absolute 0.3 0.0 - 1.3 [facility] Monocytes 10e9/L [facility] Absolute 0.0 0.0 - 0.7 [facility] [...] Phon e Number [facility] [address] [place] [address] [facility] LABS (ABNORMAL) Hemoglobin A1c (02/03/2014 5:38 AM CDT) Analysis Performed At Patho logist Time Signature Hemoglobin A1C 6.2 (H) 4.3 - 6.0 [facility] LABS Specimen Anatomical Collection Method Collection Time Receive d Time (Source) Location / / Volume Laterality Blood specimen 02/03/2014 5:38 AM 014 5:40 (specimen) CDT AM CDT Caitlin Owens MD LAB - BLOOD ORDERABLES Performing Organization Address City/[facility]/ZIP Code Phon e Number [facility] [address] [place] [address] [facility] LABS (ABNORMAL) Glucose by meter [...] LARES - ROBERT POCT Performing Organization Address City/[facility] [...] LARES - ROBERT POCT Performing Organization Address [facility] Phon e Number FV POINT OF CARE TEST, GLUCOSE POINT OF CARE TEST, GLUCOSE Potassium (02/03/2014 1:18 AM CDT) athologist Signature Potassium 4.7 3.4 - 5.3 [facility] mmol/L CAMPUS LABS Specimen Anatomical Collection Method Collection Time Receive d Time (Source) Location / / Volume Laterality Blood specimen 02/03/2014 1:18 AM 014 1:20 (specimen) CDT AM CDT Caitlin Owens MD LAB - BLOOD ORDERABLES Performing Organization Address [facility] Phon e Number [address] LABS (ABNORMAL) Hemoglobin (02/03/2014 1:18 AM CDT) athologist Signature Hemoglobin 9.8 (L) 13.3 - 17.7 [facility] g/dL CAMPUS LABS Specimen Anatomical Collection Method Collection Time Receive d Time (Source) Location / / Volume Laterality Blood specimen 02/03/2014 1:18 AM 014 1:20 (specimen) CDT AM CDT Caitlin Owens MD LAB - BLOOD ORDERABLES Performing Organization Address [facility] Phon e Number [address] LABS (ABNORMAL) Glucose by meter (02/03/2014 1:16 AM CDT) P athologist Signature Glucose 186 (H) 60 - 99 POINT OF CARE mg/dL TEST, GLUCOSE Specimen Anatomical Collection Method Collection Time Receive d Time (Source) Location / / Volume Laterality 02/03/2014 1:16 AM 4 1:20 CDT AM CDT Migel Merchant MD LAB - BEAKER POCT Performing Organization Address City/[facility] Phon e Number FV POINT OF CARE [...] LAB - BEAKER POCT Performing Organization Address [facility] Phon e Number FV POINT OF CARE [...] Signature Phosphorus 4.4 2.5 - 4.5 [facility] mg/dL [place] [facility] Specimen Anatomical Collection Method Collection Time Receive d Time (Source) Location / / Volume Laterality Blood specimen 02/02/2014 10:50 4 (specimen) PM CDT 11:06 PM CDT Caitlin Owens MD LAB - BLOOD ORDERABLES Performing Organization Address City/State/ZIP Code Phon e Number [facility] [address] [place] [address] [facility] LABS Magnesium (02/02/2014 10:50 PM [...] [facility]/ZIP Code Phon e Number [facility] [address] [place], [place] [phone] [place] [address] LABS (ABNORMAL) Basic metabolic panel (02/02/2014 10:50 PM CDT) [facility] Method Time Signature Sodium 138 133 - 144 [facility] mmol/L [facility] [place] LABS Potassium 4.5 3.4 - 5.3 [facility] mmol/L [facility] LABS Chloride 104 94 - 109 [facility] mmol/L [facility] LABS Carbon Dioxide 25 20 - 32 [facility] mmol/L [facility] LABS Anion Gap 10 6 - 17 [facility] mmol/L [facility] LABS Glucose 134 (H) 60 - 99 [facility] mg/dL [facility] LABS Urea Nitrogen 44 (H) 7 - 30 [facility] mg/dL [facility] LABS Creatinine 6.14 (H) 0.66 - [facility] 1.25 mg/dL [facility] LABS GFR Estimate 9 (L) >60 [facility] mL/min/1.7 [facility] m2 CAMPUS LABS GFR Estimate If 11 (L) >60 [facility] Black mL/min/1.7 [place] m2 CAMPUS LABS Calcium 8.8 8.5 - 10.4 [facility] mg/dL [facility] LABS Specimen Anatomical Collection Method Collection Time Receive d Time (Source) Location / / Volume Laterality Blood specimen 02/02/2014 10:50 4 (specimen) PM CDT 11:06 PM CDT Caitlin Owens MD LAB - BLOOD ORDERABLES Performing Organization Address City/[facility]/ZIP Code Phon e Number [facility] [address] [place] [address] [facility] LABS (ABNORMAL) CBC with platelets differential (02/02/2014 10:50 PM CDT) [facility] Method Time Signature WBC 8.2 4.0 - [facility] 11.0 [facility] 10e9/L [place] LABS RBC Count 3.34 (L) 4.4 - 5.9 [facility] 10e12/L [facility] LABS Hemoglobin 10.3 (L) 13.3 - [facility] 17.7 g/dL [facility] LABS Hematocrit 30.9 (L) 40.0 - [facility] 53.0 % [facility] LABS MCV 93 78 - 100 [facility] fl [facility] LABS MCH 30.8 26.5 - [facility] 33.0 pg [facility] LABS MCHC 33.3 31.5 - [facility] 36.5 g/dL [facility] LABS RDW 14.3 10.0 - [facility] 15.0 % [facility] LABS Platelet Count 79 (L) 150 - 450 [facility] 10e9/L [facility] LABS Diff Method Automated [facility] Method [facility] LABS % Neutrophils 96.7 % [facility] LABS % Lymphocytes 1.6 % [facility] LABS % Monocytes 1.2 % [facility] LABS % Eosinophils 0.4 % [facility] % Basophils 0.0 % [facility] LABS % Immature 0.1 % [facility] Granulocytes [facility] LABS Absolute 7.9 1.6 - 8.3 [facility] Neutrophil 10e9/L [facility] LABS Absolute 0.1 (L) 0.8 - 5.3 [facility] Lymphocytes 10e9/L [facility] LABS Absolute 0.1 0.0 - 1.3 [facility] Monocytes 10e9/L [facility] LABS Absolute 0.0 0.0 - 0.7 [facility] [...] Address City/State/ZIP Code Phon e Number [phone] [place] [address] LABS (ABNORMAL) VENOUS PANEL (02/02/2014 10:09 PM CDT) [facility] Method Time Signature Ph Venous 7.31 (L) 7.32 - [facility] 7.43 pH [facility] LABS PCO2 Venous 52 (H) 40 - 50 [facility] mm Hg [facility] LABS PO2 Venous 34 25 - 47 [facility] mm Hg [facility] LABS Bicarbonate 26 21 - 28 [facility] Venous mmol/L [facility] LABS Base Deficit 0.3 mmol/L [facility] Venous [facility] LABS Comment: Reference range: -7.7 to 1.9 FIO2 45 [facility] LABS Sodium 137 133 - 144 mmol/L [facility] LABS Potassium 4.4 3.4 - 5.3 mmol/L [facility] LABS Hemoglobin 10.0 (L) 13.3 - 17.7 g/dL [facility] LABS Glucose 116 (H) 60 - 99 mg/dL [facility] LABS Calcium Ionized Whole Blood 4.8 4.4 - 5.2 mg/dL [facility] LABS Specimen Anatomical Collection Method Collection Time Receive d Time (Source) Location / / Volume Laterality 02/02/2014 10:09 02/02/2014 PM CDT 10:14 PM CDT Migel Merchant MD LAB - BLOOD ORDERABLES Performing Organization Address City/[facility]/ZIP Code Phon e Number [phone] [place] [address] LABS (ABNORMAL) Glucose by meter (02/02/2014 9:24 [...] [facility] PCO2 Venous 50 40 - 50 mm [facility] Hg [facility] LABS PO2 Venous 46 25 - 47 mm [facility] Hg [facility] LABS Bicarbonate 28 21 - 28 [facility] Venous mmol/L [facility] LABS Base Excess 1.8 mmol/L [facility] Venous [facility] LABS Comment: Reference range: -7.7 to 1.9 FIO2 100% [facility] LABS Sodium 141 133 - 144 mmol/L [facility] LABS Potassium 3.7 3.4 - 5.3 mmol/L [facility] LABS Hemoglobin 10.3 (L) 13.3 - 17.7 g/dL [facility] LABS Glucose 76 60 - 99 mg/dL [facility] LABS Calcium Ionized Whole Blood 4.8 4.4 - 5.2 mg/dL [facility] LABS Specimen Anatomical Collection Method Collection Time Receive d Time (Source) Location / / Volume Laterality 02/02/2014 6:40 PM 4 6:44 CDT PM CDT Migel Merchant MD LAB - BLOOD ORDERABLES Performing Organization Address City/State/ZIP Code Phon e Number [phone] [place] [address] LABS Glucose by meter (02/02/2014 5:11 PM [...] 3:50 CDT PM CDT Migel Merchant MD [facility] POCT Performing Organization Address City/State/ZIP [...] MARYELLEN Blood component (02/02/2014 2:07 PM CDT) [facility] Method Time Signature Unit Number [id number] [facility] LABS Blood Red Blood [facility] Component Cells [facility] Leukocyte [place] LABS Reduced Division 00 [facility] Number [facility] LABS Status of No longer [place] Unit available [facility] 02/06/2014 HOSPITAL LAB 0300 Specimen Anatomical Collection Method Collection Time Receive d Time (Source) Location / / Volume Laterality 02/02/2014 2:07 PM 4 2:10 CDT PM CDT Caitlin Owens MD LABORATORY Performing Organization Address City/State/ZIP Code Phon e Number [facility] [address] [place] [address] [facility] LABS [facility] LAB Blood component (02/02/2014 2:07 PM CDT) [facility] Method Time Signature Unit Number [id number] [facility] LABS Blood Red Blood [facility] Component Cells [facility] Leukocyte [place] [facility] Red[facility] Status of No longer [place] Unit available [facility] 02/06/2014 HOSPITAL LAB 0300 Specimen Anatomical Collection Method Collection Time Receive d Time (Source) Location / / Volume Laterality 02/02/2014 2:07 PM 4 2:10 CDT PM CDT Caitlin Owens MD LABORATORY Performing Organization Address City/[facility]/ZIP Code Phon e Number [place] [address] [place], [place] [address] [facility] LAB ABO/Rh type and screen (02/02/2014 2:07 PM CDT) [facility] Method Time Signature Units Ordered 2 [facility] LABS ABO A [facility] LABS RH(D) Pos [facility] LABS Antibody Neg [facility] Screen [facility] LABS Test Valid [facility] Only At [facility] BLOOD BANK Center,Aide LAB w Hospital Specimen 02/05/2014 [facility] BLOOD BANK LAB Crossmatch Red Blood [facility] Cells [facility] LABS Specimen Anatomical Collection Method Collection Time Receive d Time (Source) Location / / Volume Laterality Blood specimen 02/02/2014 2:07 PM 014 2:10 (specimen) CDT PM CDT Caitlin Owens MD LAB - BLOOD BANK TEST ORDER Performing Organization Address City/State/ZIP Code Phon e Number [facility] [address] [place] [address] [facility] LABS [facility] BLOOD BANK LAB (ABNORMAL) Lipid Profile (02/02/2014 2:07 PM CDT) P athologist Signature Cholesterol 135 <200 mg/dL [facility] LABS Comment: LDL Cholesterol is the primary guide to therapy. The NCEP recommends further evaluation of: patients with cholesterol greater than 200 mg/dL if additional risk facto rs are present, cholesterol greater than 240 mg/dL, triglycerides greater than 1 50 mg/dL, or HDL less than 40 mg/dL. Triglycerides 124 0 - 150 mg/dL [facility] [place] LABS HDL Cholesterol 34 (L) >40 mg/dL [facility] LABS LDL Cholesterol Calculated 77 0 - 129 mg/dL [facility] LABS Comment: LDL Cholesterol is the primary guide to therapy: LDL-cholesterol goal in high risk patients is <100 mg/dL and in very high risk patients is <70 mg/dL. VLDL-Cholesterol 25 0 - 30 mg/dL [facility] LABS Cholesterol/HDL Ratio 4.0 0.0 - 5.0 [facility] LABS Specimen Anatomical Collection Method Collection Time Receive d Time (Source) Location / / Volume Laterality Blood specimen 02/02/2014 2:07 PM 2 014 2:08 (specimen) CDT PM CDT Caitlin Ownes MD LAB - BLOOD ORDERABLES Performing Organization Address City/[facility]/ZIP Code Phon e Number [address] LABS (ABNORMAL) Hemoglobin A1c (02/02/2014 2:07 PM CDT) Analysis Performed At Patho logist Time Signature Hemoglobin A1C 6.2 (H) 4.3 - 6.0 [facility] LABS Specimen Anatomical Collection Method Collection Time Receive d Time (Source) Location / / Volume Laterality Blood specimen 02/02/2014 2:07 PM 2 014 2:08 (specimen) CDT PM CDT Caitlin Owens MD LAB - BLOOD ORDERABLES Performing Organization Address City/State/ZIP Code Phon e Number [address] LABS Hepatitis C antibody (02/02/2014 2:07 [...] [facility]/ZIP Code Phon e Number [facility] [address] [place], [place] [phone] [place] [address] MICROBIOLOGY Hepatitis B core antibody IgM (02/02/2014 2:07 PM CDT) [facility] Method Time Signature Hepatitis B Negative NEG [facility] Core IgM MICROBIOLOGY Specimen Anatomical Collection Method Collection Time Receive d Time (Source) Location / / Volume Laterality Blood specimen 02/02/2014 2:07 PM 014 2:08 (specimen) CDT PM CDT Caitlin Owens MD LAB - BLOOD ORDERABLES Performing Organization Address City/[facility]/ZIP Code Phon e Number [facility] [address] MICROBIOLOGY Hepatitis B surface antigen (02/02/2014 2:07 PM CDT) [facility] Method Time Signature Hep B Surface Negative NEG [facility] Agn MICROBIOLOGY Specimen Anatomical Collection Method Collection Time Receive d Time (Source) Location / / Volume Laterality Blood specimen 02/02/2014 2:07 PM 2 014 2:08 (specimen) CDT PM CDT Caitlin Owens MD LAB - BLOOD ORDERABLES Performing Organization Address City/[facility]/ZIP Code Phon e Number [facility] [address] [place], [place] [phone] [place] [address] MICROBIOLOGY HIV Antigen Antibody Combo (02/02/2014 2:07 PM CDT) [facility] Method Time Signature HIV Antigen Nonreactive NR [facility] Antibody HIV-1 p24 Ag & HIV-1/HIV-2 Ab Not Detected [facility] LABS Specimen Anatomical Collection Method Collection Time Receive d Time (Source) Location / / Volume Laterality Blood specimen 02/02/2014 2:07 PM 014 2:08 (specimen) CDT PM CDT Caitlin Owens MD LAB - BLOOD ORDERABLES Performing Organization Address City/[facility]/ZIP Code Phon e Number [facility] [address] [place], [place] [phone] [place] [address] [facility] LABS EBV Capsid Antibody IgM (02/02/2014 2:07 PM CDT) [facility] Method Time Signature EBV Capsid <0.2 0.0 - 0.8 [facility] Antibody IgM No detectable antibody. [place] [facility] LABS Specimen Anatomical Collection Method Collection Time Receive d Time (Source) Location / / Volume Laterality Blood specimen 02/02/2014 2:07 PM 014 2:08 (specimen) CDT PM CDT Caitlin Owens MD LAB - BLOOD ORDERABLES Performing Organization Address City/[facility]/ZIP Code Phon e Number [facility] [address] LABS (ABNORMAL) EBV Capsid Antibody IgG (02/02/2014 2:07 PM CDT) [facility] Method Time Signature EBV Capsid >8.0 0.0 - 0.8 [facility] Antibody IgG Positive, suggests recent or past exposure [facility] [place] LABS Specimen Anatomical Collection Method Collection Time Receive d Time (Source) Location / / Volume Laterality Blood specimen 02/02/2014 2:07 PM 014 2:08 (specimen) CDT PM CDT Caitlin Owens MD LAB - BLOOD ORDERABLES Performing Organization Address City/[facility]/ZIP Code Phon e Number [facility] [address] LABS CMV antibody IgM (02/02/2014 2:07 PM CDT) Analysis Performed At Patho logist Time Signature CMV Antibody <0.2 0.0 - 0.8 [facility] IgM Negative [facility] LABS Specimen Anatomical Collection Method Collection Time Receive d Time (Source) Location / / Volume Laterality Blood specimen 02/02/2014 2:07 PM 014 2:08 (specimen) CDT PM CDT Caitlin Owens MD LAB - BLOOD ORDERABLES Performing Organization Address City/[facility]/ZIP Code Phon e Number [facility] [address] LABS (ABNORMAL) CMV Antibody IgG (02/02/2014 [...] Phon e Number [facility] [address] [place] [address] [place] [facility] LABS (ABNORMAL) Comprehensive metabolic panel (02/02/2014 2:07 PM CDT) [facility] gist Method Time Signature Sodium 141 133 - 144 [facility] mmol/L [facility] LABS Potassium 4.2 3.4 - 5.3 [facility] mmol/L [facility] LABS Chloride 101 94 - 109 [facility] mmol/L [facility] LABS Carbon Dioxide 26 20 - 32 [facility] mmol/L [facility] LABS Anion Gap 13 6 - 17 [facility] mmol/L [facility] LABS Glucose 112 (H) 60 - 99 [facility] mg/dL [facility] LABS Urea Nitrogen 42 (H) 7 - 30 [facility] mg/dL [facility] LABS Creatinine 6.03 (H) 0.66 - [facility] 1.25 [facility]ITY mg/dL CAMPUS LABS GFR Estimate 9 (L) >60 [facility] mL/min/1. [facility] [address] LABS GFR Estimate If 11 (L) >60 [facility] Black mL/min/1. [address] LABS Calcium 9.9 8.5 - [facility] 10.4 UNIVERSITY mg/dL CAMPUS LABS Bilirubin Total 0.7 0.2 - 1.3 [facility] mg/dL [facility] LABS Albumin 4.2 3.3 - 4.9 [facility] g/dL [facility] LABS Protein Total 7.5 6.8 - 8.8 [facility] g/dL [facility] LABS Alkaline 88 40 - 150 [facility] Phosphatase U/L [facility] LABS ALT 33 0 - 70 [facility] U/L [facility] LABS AST 18 0 - 45 [facility] U/L [facility] LABS Specimen Anatomical Collection Method Collection Time Receive d Time (Source) Location / / Volume Laterality Blood specimen 02/02/2014 2:07 PM 014 2:08 (specimen) CDT PM CDT Caitlin Owens MD LAB - BLOOD ORDERABLES Performing Organization Address City/State/ZIP Code Phon e Number [facility] [address] [place] [address] [place] [facility] LABS (ABNORMAL) CBC with platelets differential (02/02/2014 2:07 PM CDT) [facility] gist Method Time Signature WBC 6.3 4.0 - [facility] 11.0 [facility] 10e9/L [place] LABS RBC Count 3.71 (L) 4.4 - 5.9 [facility] 10e12/L [facility] LABS Hemoglobin 11.5 (L) 13.3 - [facility] 17.7 g/dL [facility] LABS Hematocrit 33.7 (L) 40.0 - [facility] 53.0 % [facility] LABS MCV 91 78 - 100 [facility] fl [facility] LABS MCH 31.0 26.5 - [facility] 33.0 pg [facility] LABS MCHC 34.1 31.5 - [facility] 36.5 g/dL [facility] LABS RDW 14.0 10.0 - [facility] 15.0 % [facility] LABS Platelet Count 110 (L) 150 - 450 [facility] 10e9/L [facility] LABS Diff Method Automated [facility] Method [facility] LABS % Neutrophils 52.4 % [facility] LABS % Lymphocytes 32.1 % [facility] LABS % Monocytes 7.9 % [facility] LABS % Eosinophils 7.1 % [facility] LABS % Basophils 0.3 % [facility] LABS % Immature 0.2 % [facility] Granulocytes [facility] LABS Absolute 3.3 1.6 - 8.3 [facility] Neutrophil 10e9/L [facility] LABS Absolute 2.0 0.8 - 5.3 [facility] Lymphocytes 10e9/L [facility] LABS Absolute 0.5 0.0 - 1.3 [facility] Monocytes 10e9/L [facility] LABS Absolute 0.5 0.0 - 0.7 [facility] [...] Phon e Number [facility] [address] [place] [address] [facility] LABS Creatinine urine calculation only (02/02/2014 2:00 PM CDT) P athologist Signature Creatinine 88 mg/dL [facility] Urine [place] LABS Specimen Anatomical Collection Method Collection Time Receive d Time (Source) Location / / Volume Laterality 02/02/2014 2:00 PM 4 2:12 CDT PM CDT Caitlin Owens MD LAB - URINE ORDERABLES Performing Organization Address City/State/ZIP Code Phon e Number [facility] [address] [place] [address] [facility] LABS (ABNORMAL) Urine culture (02/02/2014 2:00 PM CDT) Component Value Ref Test Analysis Performed At [facility] Range Method Time Signature Specimen Midstream Urine [facility] Description [facility] LABS Special Specimen received [facility] Requests in preservative MICROBIOLOGY Culture Micro <10,000 colonies/mL Gram pos itive cocci No further identification Susceptibility [facility] testing not routinely done [place] CROBIOLOGY <10,000 colonies/mL Strain 2 Gram positive [...] MICRO GENERAL ORDERABL ES Performing Organization Address City/[facility]/ZIP Code Phon e Number [facility] [address] [place] [address] [facility] LABS [facility] MICROBIOLOGY (ABNORMAL) Protein random urine (02/02/2014 2:00 PM CDT) [facility] gist Method Time Signature Protein Random 1.89 g/L [facility] Urine [facility] LABS Protein Total 2.15 (H) 0 - 0.2 [facility] Urine g/gr g/g Cr [facility] LABS Specimen Anatomical Collection Method Collection Time Receive d Time (Source) Location / / Volume Laterality Urine specimen URINE SPECIMEN 02/02/2014 2:00 PM 02/02 2:12 (specimen) OBTAINED BY CLEAN CDT PM CDT CATCH PROCEDURE / Unknown Caitlin Owens MD LAB - URINE ORDERABLES Performing Organization Address City/[facility]/ZIP Code Phon e Number [facility] [address] LABS (ABNORMAL) Routine UA with microscopic (02/02/2014 2:00 PM CDT) Patholo gist Method Time Signature Color Urine Light Yellow [facility] LABS Appearance Urine Clear [facility] LABS Glucose Urine 70 (A) NEG mg/dL [facility] LABS Bilirubin Urine Negative NEG [facility] LABS Ketones Urine Negative NEG mg/dL [facility] UNIVERSITY [place] LABS Specific [place] 1.008 1.003 - [facility] Urine 1.035 [facility]ITY [place] LABS Blood Urine Negative NEG [facility] pH Urine 8.0 (H) 5.0 - 7.0 [facility] pH [facility]AMP[facility] LABS Protein Albumin 100 (A) NEG mg/dL [facility] Urine [facility] LABS Urobilinogen Normal 0.0 - 2.0 [facility] mg/dL mg/dL [facility] LABS Nitrite Urine Negative NEG [facility] LABS Leukocyte Negative NEG [facility] Esterase Urine [facility] LABS Source Clean catch [facility] urine [facility] LABS WBC Urine 1 0 - 2 [...] Phon e Number [facility] [address] [place] [address] [facility] LABS (ABNORMAL) Glucose by meter [...] 12-lead, tracing only (02/02/2014 1:58 PM CDT) [facility] gist Method Time Signature Interpretation ECG [...] dose, When verbally ordered by the prescriber. Carpio throat with 1-4 sprays 5 minutes prior [...] 11:15 PM CDT 0.4 mg HYDROmorphone (DILAUDID) GUN EXAMINER 1 mg/mL Shift Total 02/03/2014 6:24 AM CDT GUN EXAMINER dose (mg): 0.1, Max GUN EXAMINER dose (mg): 0.2, Lockout Interval (min): 10 minutes, GUN EXAMINER Continuous Rate (mg/hr): CONTINUOUS RATE IS NOT [...] dose, When verbally ordered by the prescriber. Carpio throat with 1-4 sprays 5 minutes prior [...] mg 2028 (Not Gi isael - Provider: Lnyne Gatica [facility] - Reason: Other - Comment: [...] draw. documented in this encounter Care Teams Credit Counselor Relationship Specialty Start Date End Date Momo Forbes PCP - General Family Practice 01/02/14 [facility] [address] [place] [address] Ingrid Santana, RN Registered Nurse Transplant 02/10/12 documented as of this encounter
--- OUTSIDE RECORDS SUMMARY | 2022-07-10 14:08 | XMS_ITS | Encounter Summary ---
:1950 Author Organization [place] Address [address] [place] [address]. [place] [address] Care Team Providers Name Role Phone Ingrid Santana RN Unavailable Unavailable Momo Forbes Primary Care Provider Reason for Visit Reason Comments Transplant Donor culture results Encounter Details Date Type Department Care Team Description 02/04/2014 Documentation Only The Transplant Gladis Yeboah, Transplant (Donor 2nd Floor, Clinic 2A RN culture results) [address] [id number] Social History Tobacco Use Types Packs/Day Years [...] and urine cultures have been uploaded into [employer]. Notification sent to Dr. Rust and Dr. Hernandes. documented in this encounter Plan of Treatment Not on filedocumented as of this encounter Visit Diagnoses Not on filedocumented in this encounter Care Teams Analytical Technician Relationship Specialty Start Date End Date Momo Forbes PCP - General Family Practice 01/02/14 [facility] [address] [place] [address] Ingrid Santana, RN Registered Nurse Transplant 02/10/12 documented as of this encounter
--- OUTSIDE RECORDS SUMMARY | 2022-07-10 14:08 | XMS_ITS | Encounter Summary ---
:1950 Author Organization [place] Address [facility] [place] [address] Care Team Providers Name Role Phone Ingrid Santana RN Unavailable Unavailable Momo Forbes Primary Care Provider Encounter Details Date Type Department Care Team Description 02/02/2014 Abstract The Transplant [facility] 2nd Floor, Clinic [address] [phone] Social History Tobacco Use [...] on filedocumented in this encounter Care Teams Fleece Tier Relationship Specialty Start Date End Date Momo Forbes PCP - General Family Practice 01/02/14 [facility] [address] [place] [address] Ingrid Santana, BOGDAN Registered Nurse Transplant 02/10/12 documented as of this encounter
--- OUTSIDE RECORDS SUMMARY | 2022-07-10 14:09 | XMS_ITS | Encounter Summary ---
:1950 Author Organization [place] Address [address] [place] [address]. [place] [address] Care Team Providers Name Role Phone Ingrid Santana RN Unavailable Unavailable Momo Forbes Primary Care Provider Reason for Visit Reason Comments Transplant Encounter Details Date Type Department Care Team Description 02/02/2014 Orders Only Transplant Surgery [place], End stage renal failure Clinic BOGDAN Mae on dialysis (H) 2nd Floor, Clinic 2A (Primary Dx) [address] [phone] Social History Tobacco Use Types Packs/Day Years [...] disease documented in this encounter Care Teams Technology Consultant Relationship Specialty Start Date End Date Momo Forbes PCP - General Family Practice 01/02/14 [facility] [address] [place] [address] Ingrid Santana, RN Registered Nurse Transplant 02/10/12 documented as of this encounter
--- OUTSIDE RECORDS SUMMARY | 2022-07-10 14:09 | XMS_ITS | Encounter Summary ---
:1950 Author Organization [place] Address [address] [place] [address] Care Team Providers Name Role Phone Ingrid Santana RN Unavailable Unavailable Momo Forbes Primary Care Provider Encounter Details Date Type Department Care Team Description 02/02/2014 Results Only LABORATORY RESULTS Migel Merchant MD 420 [facility] 195 [place], [place] [phone] (Wo rk) Social History Tobacco Use Types [...] II Single Antigen (02/02/2014 6:51 PM CDT) [facility] Method Time Signature SA2 Test SA [...] Phon e Number [facility] HLA LABORATORY Immunology/Histocompatabil [place], [place] [address] [facility] 500 [facility] [address] Building, Room 3-580 HISTOTRAC documented in this encounter Visit Diagnoses Not on filedocumented in this encounter Care Teams Harmonic Analyst Relationship Specialty Start Date End Date Momo Forbes PCP - General Family Practice 01/02/14 [facility] [address] [place] [address] Ingrid Santana, RN Registered Nurse Transplant 02/10/12 documented as of this encounter
--- OUTSIDE RECORDS SUMMARY | 2022-07-10 14:09 | XMS_ITS | Encounter Summary ---
:1950 Author Organization [place] Address [facility] [place] [address] Care Team Providers Name Role Phone Ingrid Santana RN Unavailable Unavailable Momo Forbes Primary Care Provider Encounter Details Date Type Department Care Team Description 02/02/2014 Results Only LABORATORY RESULTS Migel Merchant MD [address] [place] [address] 195 [place], [place] [address] (Wo rk) Social History Tobacco Use Types [...] [facility] Method Time Signature Crossmatch Donor:[id number], ?Crossmatch Date:02/02/2014 HISTOTRAC Result (Note) Serum Date [...] Phon e Number [facility] HLA LABORATORY Immunology/Histocompatabil [place], [place] [address] ity [facility] [address], Room 3-580 HISTOTRAC documented in this encounter Visit Diagnoses Not on filedocumented in this encounter Care Teams Investor Relationship Specialty Start Date End Date Momo Forbes PCP - General Family Practice 01/02/14 [facility] [address] [place] [address] Ingrid Santana, RN Registered Nurse Transplant 02/10/12 documented as of this encounter
--- OUTSIDE RECORDS SUMMARY | 2022-07-10 14:09 | XMS_ITS | Encounter Summary ---
:1950 Author Organization [place] Address [address] [facility] [address] Care Team Providers Name Role Phone Ingrid Santana RN Unavailable Unavailable Momo Forbes Primary Care Provider Reason for Visit Auth/Cert - Closed Specialty Diagnoses / Procedures Referred By Contact Refer red To Contact Med Surg Diagnoses end stage renal disease dialysis End stage renal failure on dialysis Renal Failure Uu U7a Procedures TRANSPLANT KIDNEY RECIPIENT DONOR 500 [place] [address] Phone: Referral ID Status Reason Start Date Expiration Date Visits Requ ested Visits Authorized [id number] Closed 02/04/2014 08/03/2014 1 1 Encounter Details Date Type Department Care Team Description 02/02/2014 Anesthesia Event [facility] Joseph Ivey MD XXX RESIGNED XXX [address] [place] [address] PeriOp Services Leigh Ann Blank MD 420 [facility] 294 [place], [place] [phone] [place] [phone] Anesthesia Record Procedure Summary Procedure [...] Hand Inez Mckeon Sara E RN Saima, SQUEEGEER AND FORMER RETIRED ETT 02/02/14; 1753; Airway 02/02/14 1753 [...] Take 1 tablet by mouth daily. B cmvmjov-F-knbmf acid (NEPHROCAPS) 1 MG capsule Take 1 [...] and alternatives discussed with: patient or operations support representative. Possibility of blood products discussed. I [...] were discussed with patient/family or family operations support representative. All questions were answered and there was agreement to proceed. History & Physical Review Leigh Ann Blank MD Anesthesiology CA-2 [phone] 2:47 PM February 02, 2014 Diego Guthrie was seen and examined and the medical history was reviewed with him. The anesthetic plan was discussed, risks were explained and questions were answered. He agrees to proceed as discussed. I have reviewed this note and agree with the assessment and plan. Joseph Ivey M.D. Staff Anesthesiologist [phone] 02/02/2014 4:48 PM documented in this encounter [...] Date/Time Associated Diagnosis Comme nts [facility]V AN MI PA CENTRAL Routine 02/02/2014 6:19 PM Re [...] cathy was punctured, and needle was obser luara entering vein on U/S ?? Permanent Image [...] passed easily into [facility]. Hyunnarm Nazia DO MI ANESTHESIA documented in this encounter Visit Diagnoses [...] Intra-op documented in this encounter Care Teams Engine Manager Relationship Specialty Start Date End Date Momo Forbes PCP - General [facility] Practice 01/02/[address] [address] Ingrid Santana, RN Registered Nurse Transplant 02/10/12 documented as of this encounter
--- OUTSIDE RECORDS SUMMARY | 2022-07-10 14:09 | XMS_ITS | Encounter Summary ---
:1950 Author Organization [place] Address [address] [place] [address] Care Team Providers Name Role Phone Ingrid Santana RN Unavailable Unavailable Momo Forbes Primary Care Provider Encounter Details Date Type Department Care Team Description 02/02/2014 Results Only LABORATORY RESULTS Migel Merchant MD 420 [facility] 195 [place], [place] [address] (Wo rk) Social History Tobacco Use Types [...] I Single Antigen (02/02/2014 6:51 PM CDT) [facility] Method Time Signature SA1 Test [...] Phon e Number [facility] HLA LABORATORY Immunology/Histocompatabil [place], [place] [address] [facility] 500 [facility] [address] Building, Room 3-580 HISTOTRAC documented in this encounter Visit Diagnoses Not on filedocumented in this encounter Care Teams Surgical Specialist Relationship Specialty Start Date End Date Momo Forbes PCP - General Family Practice 01/02/14 [facility] [address] [place] [address] Ingrid Santana, RN Registered Nurse Transplant 02/10/12 documented as of this encounter
--- OUTSIDE RECORDS SUMMARY | 2022-07-10 14:10 | XMS_ITS | Encounter Summary ---
:1950 Author Organization [place] Address [address] [place] [address] Care Team Providers Name Role Phone Ingrid Santana RN Unavailable Unavailable Momo Forbes Primary Care Provider Encounter Details Date Type Department Care Team Description 01/21/2014 Results Only LABORATORY RESULTS Mingo Dangelo MD 420 [facility] 195 [place] [address] (Wo rk) Social History Tobacco [...] HLA Lukasz Class II Single Antigen (01/21/2014) [facility] gist Method Time Signature SA2 [...] Phon e Number [facility] HLA LABORATORY Immunology/Histocompatabil [place], [place] [address] ity [facility] [address], Room 3-580 HISTOTRAC documented in this encounter Visit Diagnoses Not on filedocumented in this encounter Care Teams Oil Refinery Process Technician Relationship Specialty Start Date End Date Momo Forbes PCP - General Family Practice 01/02/14 [facility] [address] [place] [address] Ingrid Santana, RN Registered Nurse Transplant 02/10/12 documented as of this encounter
--- OUTSIDE RECORDS SUMMARY | 2022-07-10 14:10 | XMS_ITS | Encounter Summary ---
:1950 Author Organization [place] Address [address] [address] Care Team Providers Name Role Phone Toña Jones MD Primary Care Provider Ingrid Santana RN Unavailable Unavailable Encounter Details Date Type Department Care Team Description 11/05/2013 Results Only LABORATORY RESULTS Barbara Bradley MD [address] [place], [place] [address] Social History Tobacco Use [...] I Single Antigen (11/05/2013 7:20 AM CDT) [facility] gist Method Time Signature [...] Phon e Number [facility] HLA LABORATORY Immunology/Histocompatabil [place], [place] [address] ity [facility] [address], Room 3-580 HISTOTRAC documented in this encounter Visit Diagnoses Not on filedocumented in this encounter Care Teams Java J2Ee Application Developer Relationship Specialty Start Date End Date Toña Jones MD PCP - General Nephrology 11/25/11 01/01/14 Ingrid Santana, RN Registered Nurse Transplant 02/10/12 documented as of this encounter
--- OUTSIDE RECORDS SUMMARY | 2022-07-10 14:10 | XMS_ITS | Encounter Summary ---
:1950 Author Organization [place] Address [facility] [place] [address] Care Team Providers Name Role Phone Toña [...] Pumper Relationship Specialty Start Date End Date Toña Jones MD PCP - General Nephrology 11/25/11 01/01/14 Momo Forbes PCP - General Family Practice 01/02/[address] [place] [address] Ingrid Santana, RN Registered Nurse Transplant 02/10/12 documented as of this encounter
--- OUTSIDE RECORDS SUMMARY | 2022-07-10 14:10 | XMS_ITS | Encounter Summary ---
:1950 Author Organization [place] Address [address] [facility] [place] [address] Care Team Providers Name Role Phone Toña [...] Ump Sot Surgery 2nd Floor, Clinic 2A [address] [phone] Referral ID Status Reason Start Date Expiration Date Visits Requ ested Visits Authorized [id number] Closed 12/10/2013 06/08/2014 1 1 Consultation - Closed Specialty Diagnoses / Procedures Referred By Contact Refer red To Contact Diagnoses Organ transplant candidate ESRD (end stage renal disease) on dialysis (H) DM (diabetes mellitus), type 2 (H) Zz Ump Sot Surgery [facility] Floor, [facility] [address]A [address] [phone] Referral ID Status Reason Start Date Expiration Date Visits Requ ested Visits Authorized [id number] Closed 12/10/2013 06/08/2014 1 1 Encounter Details Date Type Department Care Team Description 12/07/2013 Orders Only Transplant Surgery Nazia March LPN Organ transplant candidate (Primary Dx); Clinic Screening for other and unsp ecified cardiovascular conditions; 2nd Floor, Clinic 2A ESRD (end stage renal diseas e) on dialysis (H); Tommy Wilburn DM (madeleine betes mellitus), type 2 (H) [address] [phone] Social History Tobacco Use Types [...] uncontrolled documented in this encounter Care Teams Electrician Relationship Specialty Start Date End Date Toña Jones MD PCP - General Nephrology 11/25/11 01/01/14 Ingrid Santana, RN Registered Nurse Transplant 02/10/12 documented as of this encounter
--- OUTSIDE RECORDS SUMMARY | 2022-07-10 14:10 | XMS_ITS | Encounter Summary ---
:1950 Author Organization [place] Address [facility] [place] [address] Care Team Providers Name Role Phone Toña Jones MD Primary Care Provider Ingrid Santana RN Unavailable Unavailable Reason for Visit Reason Onset Date Comments Transplant 12/19/2013 Kidney waitlist appo intments Encounter Details Date Type Department Care Team Description 12/19/2013 Telephone The Transplant [place] Abstract, Provider Transplant (Kidney 2nd Floor, Clinic 2A waitlist appointments) [address] [phone] Social History Tobacco Use Types Packs/Day Years [...]
--- OUTSIDE RECORDS SUMMARY | 2022-07-10 14:10 | XMS_ITS | Encounter Summary ---
:1950 Author Organization [place] Address [address] [place] [address] Care Team Providers Name Role Phone Ingrid Santana RN Unavailable Unavailable Momo Forbes Primary Care Provider Encounter Details Date Type Department Care Team Description 01/21/2014 Results Only LABORATORY RESULTS Mingo Dangelo MD [address] [facility] 195 [place] [address] (Wo rk) Social History Tobacco [...] Results HLA Flow T/B Crossmatch Allo (01/21/2014) [facility] gist Method Time Signature Crossmatch Donor:[id number], ?Crossmatch Date:02/02/2014 HISTOTRAC Result (Note) Serum Date [...] Phon e Number [facility] HLA LABORATORY Immunology/Histocompatabil [place], [place] [address] [facility] 500 [facility] [address] Building, Room 3-580 HISTOTRAC documented in this encounter Visit Diagnoses Not on filedocumented in this encounter Care Teams Rac Specialist Relationship Specialty Start Date End Date Momo Forbes PCP - General Family Practice 01/02/14 [facility] [address] [place] [address] Ingrid Santana, RN Registered Nurse Transplant 02/10/12 documented as of this encounter
--- OUTSIDE RECORDS SUMMARY | 2022-07-10 14:10 | XMS_ITS | Encounter Summary ---
:1950 Author Organization [place] Address [address] [place] [address] Care Team Providers Name Role Phone Toña Jones MD Primary Care Provider Ingrid Santana RN Unavailable Unavailable Encounter Details Date Type Department Care Team Description 12/10/2013 Telephone Transplant Surgery C Nazia Bledsoe LPN 2nd Floor, Clinic 2A [place] [phone] Social History Tobacco Use Types Packs/Day [...] on filedocumented in this encounter Care Teams Goods Layer Relationship Specialty Start Date End Date Toña Jones MD PCP - General Nephrology 11/25/11 01/01/14 Ingrid Santana, RN Registered Nurse Transplant 02/10/12 documented as of this encounter
--- OUTSIDE RECORDS SUMMARY | 2022-07-10 14:10 | XMS_ITS | Encounter Summary ---
:1950 Author Organization [place] Address [facility] [place] [address] Care Team Providers Name Role Phone Toña [...] DM (madeleine betes mellitus), type 2 (H) [address] [phone] Social History Tobacco Use Types [...] documented in this encounter Care Teams Supervisor Lamp Shades Relationship Specialty Start Date End Date Toña Jones MD PCP - General Nephrology 11/25/11 01/01/14 Ingrid Santana, RN Registered Nurse Transplant 02/10/12 documented as of this encounter
--- OUTSIDE RECORDS SUMMARY | 2022-07-10 14:10 | XMS_ITS | Encounter Summary ---
:1950 Author Organization [place] Address [address] [place] [address] Care Team Providers Name Role Phone Toña Jones MD Primary Care Provider Ingrid Santana RN Unavailable Unavailable Encounter Details Date Type Department Care Team Description 11/05/2013 Results Only LABORATORY RESULTS Barbara Bradley MD [address] [place], [place] [address] Social History Tobacco Use [...] II Single Antigen (11/05/2013 7:20 AM CDT) [facility] gist Method Time Signature [...] Phon e Number [facility] HLA LABORATORY Immunology/Histocompatabil [place], [place] [address] ity [facility] [address], Room 3-580 HISTOTRAC documented in this encounter Visit Diagnoses Not on filedocumented in this encounter Care Teams Tab Card Press Operator Relationship Specialty Start Date End Date Toña Jones MD PCP - General Nephrology 11/25/11 01/01/14 Ingrid Santana RN Registered Nurse Transplant 02/10/12 documented as of this encounter
--- OUTSIDE RECORDS SUMMARY | 2022-07-10 14:10 | XMS_ITS | Encounter Summary ---
:1950 Author Organization [place] Address [address] [place] [address] Care Team Providers Name Role Phone Toña Jones MD Primary Care Provider Ingrid Santana RN Unavailable Unavailable Encounter Details Date Type Department Care Team Description 07/30/2013 Results Only LABORATORY RESULTS Mingo Dangelo MD [address] [place] [address] [facility] 195 [place] [address] (Wo rk) Social History Tobacco [...] HLA Lukasz Class I Single Antigen (07/30/2013) [facility] gist Method Time Signature SA1 Test Single [...] / Volume Laterality 07/30/2013 07/31/2013 2:10 PM BATTERY STACKER Mingo Dangelo MD LAB - IMMUNOLOGY ORDERABLES Performing Organization Address City/State/ZIP Code Phon e Number [facility] HLA LABORATORY Immunology/Histocompatabil [place], [place] [address] ity [facility] [address], Room 3-580 HISTOTRAC documented in this encounter Visit Diagnoses Not on filedocumented in this encounter Care Teams Piano Builder Relationship Specialty Start Date End Date Toña Jones MD PCP - General Nephrology 11/25/11 01/01/14 Ingrid Santana, RN Registered Nurse Transplant 02/10/12 documented as of this encounter
--- OUTSIDE RECORDS SUMMARY | 2022-07-10 14:10 | XMS_ITS | Encounter Summary ---
:1950 Author Organization [place] Address [address] [place] [address] Care Team Providers Name Role Phone Ingrid Santana RN Unavailable Unavailable Momo Forbes Primary Care Provider Reason for Visit Reason Onset Date Comments Transplant 02/02/2014 Kidney Offer Encounter Details Date Type Department Care Team Description 02/02/2014 Telephone Transplant Surgery Carmelita Rosario Tran splant (Kidney Clinic RN Offer) 2nd Floor, Clinic 2A [address] [phone] Social History Tobacco Use Types [...] this encounter Care Teams President And Chief Commercial Officer Relationship Specialty Start Date End Date Momo Forbes PCP - General Family Practice 01/02/[address] [address] Ingrid Santana, RN Registered Nurse Transplant 02/10/12 documented as of this encounter
--- OUTSIDE RECORDS SUMMARY | 2022-07-10 14:10 | XMS_ITS | Encounter Summary ---
:1950 Author Organization [place] Address [address] 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
--- OUTSIDE RECORDS SUMMARY | 2022-07-10 14:10 | XMS_ITS | Encounter Summary ---
:1950 Author Organization [facility] Address [address] [place] [address] Care Team Providers Name Role Phone Ingrid Santana RN Unavailable Unavailable Momo Forbes Primary Care Provider Reason for Visit Auth/Cert - Closed Specialty Diagnoses / Procedures Referred By Contact Refer red To Contact Med Surg Diagnoses end stage renal disease dialysis End stage renal failure on dialysis Renal Failure Uu U7a Procedures TRANSPLANT KIDNEY RECIPIENT DONOR [address] [place] [address] Phone: Referral ID Status Reason Start Date Expiration Date Visits Requ ested Visits Authorized [id number] Closed 02/04/2014 08/03/2014 1 1 Encounter Details Date Type Department Care Team Description 02/02/2014 Surgery [facility]ly [facility] Migel Merchant , Kidney Transplant , PeriOp Services ureteral stent [address] [place] [address] [place] [address] [place], [place] [address] (Wo rk) Surgery Details Date/Time Status Location [...] Physician Discharge Summary Patient ID: Diego Guthrie [id number] 63 year old 1950 Admit date: 02/02/2014 [...] Take 1 tablet by mouth daily. B wpaiiqg-N-mcpzp acid (NEPHROCAPS) 1 MG capsule Take 1 [...] located on the second floor of the [facility] next to the Transplant Clinic. Your [...] of these appointments you will meetwith a perforator operator oil well and meet your title coordinator. Your nurse will also be in communication with your surgeon and perforator operator oil well as needed. The direct number to the [facility] is [phone]. In the [facility] [...] the hospital. This will be located in [facility] transplant surgery clinic on the second floor.Your transplant surgeon is: Dr. Merchant. You have a ureteral stent in place which needs to be removed in 4-6 weeks. If a instructor tap dancing does not contact you for this, please contact your title coordinator. If you have modesta in place, they will be removed in 3 weeks after operation. Notify your coordinator if you have pain over your kidney, fever greater than 101.5F, or decreased urine output. Notify your coordinator immediately if you are ever unable to take your immunosuppressive medications for any reason. 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 He can be seen by any business process analyst in the outpatient setting for coordination. Continue metoprolol 25 po bid until he is r e-evaluated. We did attempt inpatient REFUGIO guided cardioversion, but the patient developed significant bleeding while on heparin. José Miguel Alvarez M.D. Library Technology Instructor Joseph Quintana MD - 02/08/2014 12:35 PM [...] Dr. Quintana. Sina Robison MD Nephrology Fellow [phone] Attestation: This patient has been seen and [...] Ramires RN - 02/07/2014 2:25 PM CDT Pelt Grader D: Diego Guthrie 63 year old male POD #5 s/p DDKT for ESRD 2/[address] Diaz note today. Per Dr Diaz, pt will most likely be ready for d/c to home tomorrow and will return to [facility] for 5 days at 0700. Pt will [...] Pt does not know where the [facility] or transplant clinic is, I told him and he replied I will find it. Pt does not care which [facility] agency will follow him--There are only 2 to [facility], [phone] --I called and left a message with Estrella Fletcher and I fax'd his records tothem--pt will need start of care approx Thursday 02/15. Pt is new on warfarin and I called his PCP's office and they have INR nurses Tuesday-Tuesday their fax # is [phone] (when N visits are completed --pt will call main clinic # to schedule INR draws). 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 I verified his address and phone #(is his cell) on the facesheet. Pt has not met his OP medicare specialist: Leandro Kahn, yet--I sent Leandro an in basket message today-with plan. A: possible d/c to home Tuesday P: see above-will follow and will call [facility] to confirm they can accept [...] Dr. Quintana. Sina Robison MD Nephrology Fellow [phone] Attestation: This patient has been seen and [...] assistance Medical Decision Making: Medium Subsequent visit 87406 (moderate level decision making) PATO/Fellow/Resident Provider: Adeline [...] Hernandez MD - 02/06/2014 4:25 PM CDT [facility] Cardiology Progress Note I have [...] Dr. Quintana. Sina Robison MD Nephrology Fellow [phone] Attestation: This patient has been seen and [...] Dr. Quintana. Sina Robison MD Nephrology Fellow [phone] Attestation: This patient has been seen and [...] REPLACEMENT ONLY ??? insulin (regular) Stopped (02/05/14 7137) Shiva Kahn RN - 02/05/2014 4:47 PM CDT CHANGE BOOTH ATTENDANT NOTE I met with the patient and his yesterday at [facility] PCU-6B (telemetry unit) to discuss transition from inpatient to outpatient care following kidney translantation. 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 Michael, Joseph Hernandez MD - 02/05/2014 11:16 AM CDT [facility] Cardiology Progress Note I have [...] kidney on 02/02/2014. Pt lives alone in [place] [facility] though reports that his girlfriend in in the process of moving in with him. Pt girlfriend, Tete, will be present when pt returns home but she works maritime engineer. Pt was on dialysis for 2 1/2 years prior to transplant. Pt works independently but reports that he currently has no income coming in. Pt has primary insurancethrough Medicare and Secondary insurance through [employer]. Pt has no co-pays for his immunosuppressants and a high out of pocket cost for Valcyte, SW to look into grants for pt for Valcyte. I: Met with pt to introduce this contract technical writer and explain sw role and services available while inpatient in the hospital. Asked if pt had any questions or concerns and completed an assessment of psychosocialneeds post transplant. Provided education about expectations and requirements post discharge like fol low up in the [facility]. Pt is unsure yet if he will [...] arise prior to discharge. Roopa Castro, CECY, SHOP LEAD Indu Calixto MD - 02/05/2014 1:50 AM [...] PT - 02/04/2014 4:57 PM CDT 02/04/14 6702 Quick Adds Type of Visit Initial PT Evaluation Financial Operations Consultant Financial Operations Consultant Present no Language Guinean Living Environment (R) Lives With alone [facility] Ar[facility]ements ([facility] Home Accessibility no concerns Number of [...] up when pt is available. CECY Kearns, [facility] [phone] phone [phone] pager Joseph Quintana MD - 02/04/2014 11:51 [...] Dr. Quintana. Sina Robison MD Nephrology Fellow [phone] Attestation: This patient has been seen and [...] for this basename: PTHI, in the last 71513 hours IRON STUDIES No results found for this basename: IRON, FEB, IRONSAT, THEE, in the last 65200 hours Imaging: All imaging studies reviewed by [...] or equal to 12.0 mlU/mL. Adeline Diaz [phone] Attestation: The patient has been seen and [...] donor kidney transplant, with stent on 02/02/14. CUT PLUG PACKER donor. Graft function:uncertain, Cr slightly up. Slow [...] . Medical Decision Making: Medium Subsequent visit 33966 (moderate level decision making) PATO/Fellow/Resident Provider: Caitlin [...] note and orders. Migel Merchant MD, PhD field horticultural specialty grower Abdominal Organ Transplantation Carmelita Rosario, RN - 02/03/2014 9:38 AM CDT Patient removed from the OS waitlist after donor kidney transplant. OS ID is [id number]. Rafaela Cardona - 02/03/2014 9:17 AM CDT [...] followed general diet. 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 CURRENT NUTRITION [...] DDKT ASSESSED NUTRITION NEEDS: Estimated Energy Needs: 1099-5447+ kcals (25-30+ Kcal/Kg) Justification: maintenance post-transplant Estimated [...] 8 weeks). 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 Implementation Nutrition education: Provided instruction on post-transplant diet with discussion regarding protein sources and high protein needs in acute post-tx phase. 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 Rafaela Cardona RD, LD Weekend Coverage [phone] Jose Aguirre MD - 02/03/2014 4:57 AM [...] Doing well postoperatively. Pain: Controlled by Dilaudid CAREER CONSULTANT Diet: NPO tonight Volume Status: Borderline low UOP, continue MIVF, 0.9 % NS 500 cc bolus given for low UOP, CVP not accurate, systolic in 100-110 Recheck hemoglobin and potassium normal. Rest of the plan per primary team. Will continue to follow. Jose Aguirre MD PGY-1.................02/03/2014 Surgery Cross Cover Pager:[phone] documented in this encounter H&P Notes Caitlin [...] 1 tablet by mouth daily. ??? 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 Kidney bx [...] note and orders. Migel Merchant MD, PhD field horticultural specialty grower Abdominal Organ Transplantation documented in this encounter Consult Notes Joseph Rodriguez MD - 02/04/2014 11:03 AM CDTAssociated Order(s): CARDIOLOGY IP CONSULT [facility] CARDIOLOGY CONSULT SERVICE INITIAL CONSULT NOTE [...] 1 tablet by mouth daily. ??? 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 José Miguel Alvarez MD Library Technology Instructor Pager: [phone] February 04, 2014 Kaitlynn Leon MD - 02/03/2014 9:30 AM CDT Nephrology Initial Consult February 03, 2014 Diego Guthrie Date of : 1950 Date of Admission:02/02/2014 Primary care provider: Momo Forbes Requesting physician: Migel Merchant MD ASSESSMENT AND RECOMMENDATIONS: 1. DDKT - CUT PLUG PACKER -59 yo women; slow graft function-no immediate need for dialysis , but may require tomorrow if UO does not shrimp picker. We will monitor Induction with Thymo/Cellcept [...] h/o type 2 Dm, who received DDKT (CUT PLUG PACKER) on 02/02/2014 donor kidney had severe atherosclerotic [...] ??? 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 Reported, Patient B idfvpph-U-varuj acid (NEPHROCAPS) 1 MG capsule Take 1 [...] Intravenous Central line Once ??? HYDROmorphone Intravenous CAREER CONSULTANT Infusion Meds ??? 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 Alvin Diego Cardiovascular Disease Fellow [phone] Patient seen and examined by me with [...] Cullen MD, PhD Jarad Cullen MD, PhD [phone] documented in this encounter Nursing Notes Gretta Mary RN - 02/02/2014 11:[address] Owens with Transplant Surgery notified of stat lab results. Magnesium replaced. Dr. Blank with Anesthesia reviewed chest x-ray. CVC not deep enough to give accurate CVP readings, however all lumens aspirate blood well. Patient is ok to transfer to unit 6B per [employer]. documented in this encounter Miscellaneous Notes Plan of Care - Amanda Hernandez RN - 02/08/2014 3:44 PM CDT Problem: IP GENERAL POC-ADULT,OB,BEHAVIORAL FVCPM Goal: Individualization/Patient-Specific Goal (Adult,OB,Behavioral The patient and/or their registration representative will achieve their patient-specific goals related [...] Card updated. Report called to Saima in [facility]. Left facility accompanied by s.o at 1600. Plan of Care - Amanda Hernandez RN - 02/08/2014 2:13 PM CDT Problem: IP GENERAL POC-ADULT,OB,BEHAVIORAL FVCPM Goal: Individualization/Patient-Specific Goal (Adult,OB,Behavioral The patient and/or their registration representative will achieve their patient-specific goals related [...] Individualization/Patient-Specific Goal (Adult,OB,Behavioral The patient and/or their registration representative will achieve their patient-specific goals related [...] Individualization/Patient-Specific Goal (Adult,OB,Behavioral The patient and/or their registration representative will achieve their patient-specific goals related [...] Diet recommendations post-transplant: Heart healthy dietary habits group home (low saturated/trans fat, low sodium). High protein diet x 8 weeks. Practice food safety precautions - no fish/seafood x 3 weeks. Inez Luevano MS, RD, LD Pager [phone] Pharmacy-Immunosuppression Monitoring - Em Vasquez [facility] [...] will continue to follow. Em Vasquez, Pharm.D., [facility] Pager [phone] Plan of Care - Annmarie Colby RN - 02/07/2014 5:11 AM CDT Problem: IP GENERAL POC-ADULT,OB,BEHAVIORAL FVCPM Goal: Individualization/Patient-Specific Goal (Adult,OB,Behavioral The patient and/or their registration representative will achieve their patient-specific goals related [...] Individualization/Patient-Specific Goal (Adult,OB,Behavioral The patient and/or their registration representative will achieve their patient-specific goals related [...] increased fluid intake, urine color is becoming staffing associate( tea color/bloody- >dark sy/tea color). Incisional [...] Physical Therapy Goals The patient and/or their registration representative will achieve their patient-specific goals related [...] balance deficits. Plan of Care - Yesenia Rodriguze, PT - 02/06/2014 10:09 AM CDT Problem: General Rehab Plan of Care Goal: Physical Therapy Goals The patient and/or their registration representative will achieve their patient-specific goals related [...] Individualization/Patient-Specific Goal (Adult,OB,Behavioral The patient and/or their registration representative will achieve their patient-specific goals related [...] Individualization/Patient-Specific Goal (Adult,OB,Behavioral The patient and/or their registration representative will achieve their patient-specific goals related [...] Physical Therapy Goals The patient and/or their registration representative will achieve their patient-specific goals related [...] medical conditions. Patient would like to use [facility] to manage all medications. Medcard: [...] Specialty Pharmacy review: Discussed the benefits of [facility] and Diego has enrolled. Also gave him supplies (blood pressure cuff, thermometer, and pill box) Other concerns: No other concerns at this time. No further questions for this pharmacist. Inez Cox, Student Pharmacist Sld Teacher [facility] [address] [place] [phone] Cayetano Olivera, Pharmacist [facility] [phone] Pharmacy-Anticoagulation Service - Teresa Wright [facility] [...] Individualization/Patient-Specific Goal (Adult,OB,Behavioral The patient and/or their registration representative will achieve their patient-specific goals related [...] melonie hard time making full sentences. When contract technical writer came on shift at 8pm [...] Individualization/Patient-Specific Goal (Adult,OB,Behavioral The patient and/or their registration representative will achieve their patient-specific goals related [...] Physical Therapy Goals The patient and/or their registration representative will achieve their patient-specific goals related [...] by friend. Pt transferred to chair, VSS, ironworker machine operator on, oriented to room. Pharmacy-Admission Medication History - Teresa Wright [facility] - 02/04/2014 11:54 AM CDT Admission medication history interview status for the 02/02/2014 admission is complete. See [facility] admission navigator for allergy information, prior to admission medications and immunization status. 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 Repeat EKG around 1000 showed continued [...] Physical Therapy Goals The patient and/or their registration representative will achieve their patient-specific goals related to the plan of care. The patient-specific goals include: PT 7A: HOLD for AM per RN - pt with a-fib this morning. Plan of Care - Alisson Diane RN - 02/04/2014 6:45 AM CDT Problem: IP GENERAL POC-ADULT,OB,BEHAVIORAL FVCPM Goal: Individualization/Patient-Specific Goal (Adult,OB,Behavioral The patient and/or their registration representative will achieve their patient-specific goals related [...] Individualization/Patient-Specific Goal (Adult,OB,Behavioral The patient and/or their registration representative will achieve their patient-specific goals related [...] Individualization/Patient-Specific Goal (Adult,OB,Behavioral The patient and/or their registration representative will achieve their patient-specific goals related to the plan of care. The patient-specific goals include: 1. Pt will remain hemodynamically stable 2. Pt will have adequate urine output 3. Pt will be free of falls. RD Patient will verbalize understanding of 3 important aspects of post-transplant diet guidelines. PO intake >50% meals TID once diet adv. Report taken from [facility] on 6B; patient transferred to from 6B via wheelchair around 1500. Patientsettled into room, oriented to floor/room and call light. VS taken. Orders released. Continue ordersas written and notify MD with any concerns. Plan of Care - Sofie Christianson RN - 02/03/2014 2:59 PM CDT Problem: IP GENERAL POC-ADULT,OB,BEHAVIORAL FVCPM Goal: Plan of Care Review (Adult,OB,Behavioral) The patient and/or their registration representative will communicate an understanding of their [...] algorithm 2, 1 unit now. Pt still [id number] NC to maintain sats above 90 % [...] Individualization/Patient-Specific Goal (Adult,OB,Behavioral The patient and/or their registration representative will achieve their patient-specific goals related [...] Intermittent sharp R lower abd pain. Dilaudid CAREER CONSULTANT encouraged, increased to 0.2//.2. R lower abd [...] 0200 made 20cc/hr, at 0300 made 30cc/hr. [place]/red tinged urine. MIVF @ 125/hr. VSS. HR 70s, BPs 100s-120s/60s. No new orders at this time. Will continue to monitor. Plan of Care - Tasia Andrade RN - 02/03/2014 12:00 AM CDT Pt arrived to 6B from PACU, s/p DDKT. A&O x3-4. VSS. [place]/red urine output. Small amt drainage on abd [...] received [facility] for a Donor CUT PLUG PACKER (expanded criteria donor) kidney transplant. After discussing [...] The UNOS number of the donor is [id number]. The crossmatch was done prospectively; and the [...] reconstruction. FACULTY SURGEON: Migel Merchant M.D., Ph.D. FELLOW/JOURNEYMAN WIREMAN SURGEON: Caitlin Owens MD fellow ANESTHESIA: None VERIFICATION: Prior to incision, I verified the donor ABO and recipient ABO. After the donor organ arrived to the operating room and prior to anastamosis, I visually verified that the donor identification, blood type, and other vital data were compatible with the recipient. FINDINGS: Donor type: CUT PLUG PACKER (expanded criteria donor) Organ: kidney Graft Injury: [...] Individualization/Patient-Specific Goal (Adult,OB,Behavioral The patient and/or their registration representative will achieve their patient-specific goals related [...] Individualization/Patient-Specific Goal (Adult,OB,Behavioral The patient and/or their registration representative will achieve their patient-specific goals related [...] [facility] Tacrolimus 10.0 5.0 - [facility] Level 15.0 ug/L [facility] Comment: Tacrolimus Reference Range Kidney Transplant [...] Center & Hospital/ZIP Code Phon e Number [facility] [address] LABS (ABNORMAL) INR (02/08/2014 6:42 AM CDT) P athologist Signature INR 1.28 (H) 0.86 - 1.14 [facility] Specimen Anatomical Collection Method Collection Time Receive d Time (Source) Location / / Volume Laterality Blood specimen 02/08/2014 6:42 AM 014 6:43 (specimen) CDT AM CDT Omaira Chavez PA-C LAB - BLOOD ORDERABLES Performing Organization Address City/State/ZIP Code Phon e Number [facility] [address] LABS (ABNORMAL) Basic metabolic panel (02/08/2014 6:42 AM CDT) Patholo gist Method Time Signature Sodium 144 133 - 144 [facility] mmol/L [facility] Potassium 3.9 3.4 - 5.3 [facility] mmol/L [facility] Chloride 110 (H) 94 - 109 [facility] mmol/L [facility] Carbon Dioxide 25 20 - 32 [facility] mmol/L [facility] Anion Gap 8 6 - 17 [facility] mmol/L [facility] Glucose 144 (H) 60 - 99 [facility] mg/dL [facility] Urea Nitrogen 66 (H) 7 - 30 [facility] mg/dL [facility] Creatinine 2.38 (H) 0.66 - [facility] 1.25 mg/dL [facility] GFR Estimate 28 (L) >60 [facility] mL/min/1.7 [place] m2 CAMPUS LABS GFR Estimate If 34 (L) >60 [facility] Black mL/min/1.7 [place] [id number] CAMPUS LABS Calcium 9.4 8.5 - 10.4 [facility] mg/dL [facility] Specimen Anatomical Collection Method Collection Time Receive d Time (Source) Location / / Volume Laterality Blood specimen 02/08/2014 6:42 AM 014 6:43 (specimen) CDT AM CDT Omaira Chavez PA-C LAB - BLOOD ORDERABLES Performing Organization Address City/[facility]/ZIP Code Phon e Number [address] LABS Phosphorus (02/08/2014 6:42 AM CDT) P athologist Signature Phosphorus 2.5 2.5 - 4.5 [facility] mg/dL [place] [facility] Specimen Anatomical Collection Method Collection Time Receive d Time (Source) Location / / Volume Laterality Blood specimen 02/08/2014 6:42 AM 014 6:43 (specimen) CDT AM CDT Omaira Chavez PA-C LAB - BLOOD ORDERABLES Performing Organization Address City/[facility]/ZIP Code Phon e Number [address] LABS Magnesium (02/08/2014 6:42 AM CDT) athologist Signature Magnesium 2.2 1.6 - 2.3 [facility] mg/dL [place] [facility] Specimen Anatomical Collection Method Collection Time Receive d Time (Source) Location / / Volume Laterality Blood specimen 02/08/2014 6:42 AM 014 6:43 (specimen) CDT AM CDT Omaira Chavez PA-C LAB - BLOOD ORDERABLES Performing Organization Address City/[facility]/ZIP Code Phon e Number [address] LABS (ABNORMAL) CBC with platelets differential (02/08/2014 6:42 AM CDT) Patholo gist Method Time Signature WBC 4.8 4.0 - [facility] 11.0 [facility] 10e9/L [place] LABS RBC Count 2.56 (L) 4.4 - 5.9 [facility] 10e12/L [facility] LABS Hemoglobin 7.8 (L) 13.3 - [facility] 17.7 g/dL [facility] LABS Hematocrit 23.5 (L) 40.0 - [facility] 53.0 % [facility] LABS MCV 92 78 - 100 [facility] fl [facility] LABS MCH 30.5 26.5 - [facility] 33.0 pg [facility] [place] LABS MCHC 33.2 31.5 - [facility] 36.5 g/dL [facility] LABS RDW 14.5 10.0 - [facility] 15.0 % [facility] LABS Platelet Count 70 (L) 150 - 450 [facility] 10e9/L [facility] LABS Diff Method Automated [facility] Method [facility] LABS % Neutrophils 86.3 % [facility] LABS % Lymphocytes 3.1 % [facility] LABS % Monocytes 9.4 % [facility] LABS % Eosinophils 1.0 % [facility] LABS % Basophils 0.0 % [facility] % Immature 0.2 % [facility] Granulocytes [facility] LABS Absolute 4.1 1.6 - 8.3 [facility] Neutrophil 10e9/L [facility] LABS Absolute 0.2 (L) 0.8 - 5.3 [facility] Lymphocytes 10e9/L [facility] LABS Absolute 0.5 0.0 - 1.3 [facility] Monocytes 10e9/L [facility] LABS Absolute 0.1 0.0 - 0.7 [facility] Eosinophils 10e9/L [facility] LABS Absolute 0.0 0.0 - 0.2 [facility] Basophils 10e9/L [facility] LABS Abs Immature 0.0 0 - 0.4 [facility] Granulocytes 10e9/L [facility] LABS Specimen Anatomical Collection Method Collection Time Receive d Time (Source) Location / / Volume Laterality Blood specimen 02/08/2014 6:42 AM 014 6:43 (specimen) CDT AM CDT Omaira Chavez PA-C LAB - BLOOD ORDERABLES Performing Organization Address City/State/ZIP Code Phon e Number [facility] [address] [place], [place] [id number] [place] [address] LABS (ABNORMAL) Glucose by meter (02/07/2014 10:18 PM CDT) P athologist Signature Glucose 233 (H) 60 - 99 POINT OF CARE mg/dL TEST, GLUCOSE Specimen Anatomical Collection Method Collection Time Receive d Time (Source) Location / / Volume Laterality 02/07/2014 10:18 02/07/2014 PM CDT 10:20 PM CDT Migel Merchant MD LAB - BEAKER POCT Performing Organization Address [facility] Phon e Number FV [...] LAB - BEAKER POCT Performing Organization Address [facility] Phon e Number FV [...] LAB - BEAJ POCT Performing Organization Address [facility] Phon e Number FV [...] LAB - BEAJ POCT Performing Organization Address [facility] Phon e Number FV [...] 7:50 CDT AM CDT Migel Merchant MD [facility] POCT Performing Organization [...] Signature INR 1.25 (H) 0.86 - 1.14 [facility] LABS Specimen Anatomical Collection Method Collection Time Receive d Time (Source) Location / / Volume Laterality Blood specimen 02/07/2014 4:23 AM 014 4:24 (specimen) CDT AM CDT Omaira Chavez PA-C LAB - BLOOD ORDERABLES Performing Organization Address City/State/ZIP Code Phon e Number [phone] [place] [address] LABS (ABNORMAL) Basic metabolic panel (02/07/2014 4:23 AM CDT) [facility] gist Method Time Signature Sodium 143 133 - 144 [facility] mmol/L [facility] LABS Potassium 4.1 3.4 - 5.3 [facility] mmol/L [facility] LABS Chloride 109 94 - 109 [facility] mmol/L [facility] LABS Carbon Dioxide 24 20 - 32 [facility] mmol/L [facility] LABS Anion Gap 10 6 - 17 [facility] mmol/L [facility] LABS Glucose 185 (H) 60 - 99 [facility] mg/dL [facility] LABS Urea Nitrogen 77 (H) 7 - 30 [facility] mg/dL [facility] LABS Creatinine 3.02 (H) 0.66 - [facility] 1.25 mg/dL [facility] LABS GFR Estimate 21 (L) >60 [facility] mL/min/1.7 [place] m2 CAMPUS LABS GFR Estimate If 26 (L) >60 [facility] Black mL/min/1.7 [place] [id number] CAMPUS LABS Calcium 9.3 8.5 - 10.4 [facility] mg/dL [facility] LABS Specimen Anatomical Collection Method Collection Time Receive d Time (Source) Location / / Volume Laterality Blood specimen 02/07/2014 4:23 AM 014 4:24 (specimen) CDT AM CDT Omaira Chavez PA-C LAB - BLOOD ORDERABLES Performing Organization Address City/[facility]/ZIP Code Phon e Number [address] LABS Phosphorus (02/07/2014 4:23 AM CDT) P athologist Signature Phosphorus 3.5 2.5 - 4.5 [facility] mg/dL [place] LABS Specimen Anatomical Collection Method Collection Time Receive d Time (Source) Location / / Volume Laterality Blood specimen 02/07/2014 4:23 AM 014 4:24 (specimen) CDT AM CDT Omaira Chavez PA-C LAB - BLOOD ORDERABLES Performing Organization Address City/State/ZIP Code Phon e Number [address] LABS Magnesium (02/07/2014 4:23 AM CDT) P athologist Signature Magnesium 2.1 1.6 - 2.3 [facility] mg/dL [place] LABS Specimen Anatomical Collection Method Collection Time Receive d Time (Source) Location / / Volume Laterality Blood specimen 02/07/2014 4:23 AM 014 4:24 (specimen) CDT AM CDT Omaira Chavez PA-C LAB - BLOOD ORDERABLES Performing Organization Address City/State/ZIP Code Phon e Number [address] LABS (ABNORMAL) CBC with platelets differential (02/07/2014 4:23 AM CDT) Patholo gist Method Time Signature WBC 2.7 (L) 4.0 - [facility] 11.0 [facility] 10e9/L [place] LABS RBC Count 2.80 (L) 4.4 - 5.9 [facility] 10e12/L [facility] LABS Hemoglobin 8.5 (L) 13.3 - [facility] 17.7 g/dL [facility] LABS Hematocrit 25.8 (L) 40.0 - [facility] 53.0 % [facility] LABS MCV 92 78 - 100 [facility] fl [facility] LABS MCH 30.4 26.5 - [facility] 33.0 pg [facility] LABS MCHC 32.9 31.5 - [facility] 36.5 g/dL [facility] LABS RDW 14.5 10.0 - [facility] 15.0 % [facility] LABS Platelet Count 77 (L) 150 - 450 [facility] 10e9/L [facility] LABS Diff Method Automated [facility] Method [facility] LABS % Neutrophils 87.5 % [facility] % Lymphocytes 3.8 % [facility] % Monocytes 8.7 % [facility] % Eosinophils 0.0 % [facility] % Basophils 0.0 % [facility] % Immature 0.0 % [facility] Granulocytes [facility] LABS Absolute 2.3 1.6 - 8.3 [facility] Neutrophil 10e9/L [facility] LABS Absolute 0.1 (L) 0.8 - 5.3 [facility] Lymphocytes 10e9/L [facility] LABS Absolute 0.2 0.0 - 1.3 [facility] Monocytes 10e9/L [facility] LABS Absolute 0.0 0.0 - 0.7 [facility] Eosinophils 10e9/L [facility] LABS Absolute 0.0 0.0 - 0.2 [facility] Basophils 10e9/L [facility] LABS Abs Immature 0.0 0 - 0.4 [facility] Granulocytes 10e9/L [facility] LABS Specimen Anatomical Collection Method Collection Time Receive d Time (Source) Location / / Volume Laterality Blood specimen 02/07/2014 4:23 AM 014 4:24 (specimen) CDT AM CDT Omaira Chavez PA-C LAB - BLOOD ORDERABLES Performing Organization Address City/State/ZIP Code Phon e Number [phone] [place] [address] LABS (ABNORMAL) Hemoglobin A1c (02/07/2014 4:23 AM CDT) Analysis Performed At Patho logist Time Signature Hemoglobin A1C 6.1 (H) 4.3 - 6.0 [facility] % [facility] LABS Specimen Anatomical Collection Method Collection Time Receive d Time (Source) Location / / Volume Laterality Blood specimen 02/07/2014 4:23 AM 014 4:24 (specimen) CDT AM CDT Omaira Chavez PA-C LAB - BLOOD ORDERABLES Performing Organization Address City/State/ZIP Code Phon e Number [address] [address] [facility] LABS (ABNORMAL) Glucose by meter [...] 13.3 - 17.7 [facility] g/dL [place] LABS Specimen Anatomical Collection Method Collection Time Receive d Time (Source) Location / / Volume Laterality Blood specimen 02/06/2014 4:59 PM 014 5:12 (specimen) CDT PM CDT Omaira Chavez PA-C LAB - BLOOD ORDERABLES Performing Organization Address City/[facility]/ZIP Code Phon e Number [facility] [address] LABS (ABNORMAL) Glucose by meter (02/06/2014 12:01 PM CDT) athologist Signature Glucose 181 (H) 60 - 99 POINT OF CARE mg/dL TEST, GLUCOSE Specimen Anatomical Collection Method Collection Time Receive d Time (Source) Location / / Volume Laterality 02/06/2014 12:01 02/06/2014 PM CDT 12:05 PM CDT Migel Merchant MD LAB - BEAKER POCT Performing Organization Address City/[facility]/ZIP Code Phon e Number FV POINT OF CARE TEST, GLUCOSE POINT OF CARE TEST, GLUCOSE (ABNORMAL) Partial thromboplastin time (02/06/2014 5:57 AM CDT) athologist Signature PTT 154 (HH) 22 - 37 sec [facility] LABS Comment: Critical Value called to and read back Whitney HODGSON 6B RN AT 0642. PW Specimen Anatomical Collection Method Collection Time Receive d Time (Source) Location / / Volume Laterality 02/06/2014 5:57 AM 4 6:03 CDT AM CDT Adeline Diaz MD LAB - BLOOD ORDERABLES Performing Organization Address City/[facility]/ZIP Code Phon e Number [facility] [address] [place], [place] [phone] [place] [address] LABS Heparin Xa (10a) Level (02/06/2014 5:57 AM CDT) athologist Signature Heparin 10A 0.92 IU/mL [facility] LABS Comment: Therapeutic Range: ?? [...] 014 6:03 (specimen) CDT AM CDT Omaira Chvaez PA-C LAB - BLOOD ORDERABLES Performing Organization Address City/[facility] Code Phon e Number [facility] [address] LABS (ABNORMAL) INR (02/06/2014 5:57 AM CDT) P athologist Signature INR 1.32 (H) 0.86 - 1.14 [facility] LABS Specimen Anatomical Collection Method Collection Time Receive d Time (Source) Location / / Volume Laterality Blood specimen 02/06/2014 5:57 AM 014 6:03 (specimen) CDT AM CDT Omaira Chavez PA-C LAB - BLOOD ORDERABLES Performing Organization Address City/State/ZIP Code Phon e Number [facility] [address] LABS (ABNORMAL) Basic metabolic panel (02/06/2014 5:57 AM CDT) Patholo gist Method Time Signature Sodium 142 133 - 144 [facility] mmol/L [facility] LABS Potassium 4.7 3.4 - 5.3 [facility] mmol/L [facility] LABS Chloride 106 94 - 109 [facility] mmol/L [facility] LABS Carbon Dioxide 28 20 - 32 [facility] mmol/L [facility] LABS Anion Gap 8 6 - 17 [facility] mmol/L [facility] LABS Glucose 196 (H) 60 - 99 [facility] mg/dL [facility] LABS Urea Nitrogen 71 (H) 7 - 30 [facility] mg/dL [facility] LABS Creatinine 3.96 (H) 0.66 - [facility] 1.25 mg/dL [facility] [place] LABS GFR Estimate 15 (L) >60 [facility] mL/min/1.7 [place] m2 CAMPUS LABS GFR Estimate If 19 (L) >60 [facility] Black mL/min/1.7 [place] m2 CAMPUS LABS Calcium 9.4 8.5 - 10.4 [facility] mg/dL [facility] LABS Specimen Anatomical Collection Method Collection Time Receive d Time (Source) Location / / Volume Laterality Blood specimen 02/06/2014 5:57 AM 014 6:03 (specimen) CDT AM CDT Omaira Chavez PA-C LAB - BLOOD ORDERABLES Performing Organization Address City/State/ZIP Code Phon e Number [facility] [address] LABS Phosphorus (02/06/2014 5:57 AM CDT) P athologist Signature Phosphorus 4.5 2.5 - 4.5 [facility] mg/dL [place] LABS Specimen Anatomical Collection Method Collection Time Receive d Time (Source) Location / / Volume Laterality Blood specimen 02/06/2014 5:57 AM 014 6:03 (specimen) CDT AM CDT Omaira Chavez PA-C LAB - BLOOD ORDERABLES Performing Organization Address City/State/ZIP Code Phon e Number [facility] [address] LABS Magnesium (02/06/2014 5:57 AM CDT) P athologist Signature Magnesium 1.9 1.6 - 2.3 [facility] mg/dL [place] LABS Specimen Anatomical Collection Method Collection Time Receive d Time (Source) Location / / Volume Laterality Blood specimen 02/06/2014 5:57 AM 014 6:03 (specimen) CDT AM CDT Omaira Chavez PA-C LAB - BLOOD ORDERABLES Performing Organization Address City/State/ZIP Code Phon e Number [facility] [address] [place], [place] [phone] [place] [address] LABS (ABNORMAL) CBC with platelets differential (02/06/2014 5:57 AM CDT) Patholo gist Method Time Signature WBC 5.1 4.0 - [facility] 11.0 [facility] 10e9/L [place] LABS RBC Count 3.13 (L) 4.4 - 5.9 [facility] 10e12/L [facility] LABS Hemoglobin 9.6 (L) 13.3 - [facility] 17.7 g/dL [facility] LABS Hematocrit 29.0 (L) 40.0 - [facility] 53.0 % [facility] LABS MCV 93 78 - 100 [facility] fl [facility] LABS MCH 30.7 26.5 - [facility] 33.0 pg [facility] LABS MCHC 33.1 31.5 - [facility] 36.5 g/dL [facility] LABS RDW 14.5 10.0 - [facility] 15.0 % [facility] LABS Platelet Count 85 (L) 150 - 450 [facility] 10e9/L [facility] LABS Diff Method Automated [facility] Method [facility] LABS % Neutrophils 86.0 % [facility] LABS % Lymphocytes 5.1 % [facility] LABS % Monocytes 8.7 % [facility] LABS % Eosinophils 0.0 % [facility] % Basophils 0.0 % [facility] LABS % Immature 0.2 % [facility] Granulocytes [facility] LABS Absolute 4.4 1.6 - 8.3 [facility] Neutrophil 10e9/L [facility] LABS Absolute 0.3 (L) 0.8 - 5.3 [facility] Lymphocytes 10e9/L [facility] LABS Absolute 0.4 0.0 - 1.3 [facility] Monocytes 10e9/L [facility] LABS Absolute 0.0 0.0 - 0.7 [facility] Eosinophils 10e9/L [facility] LABS Absolute 0.0 0.0 - 0.2 [facility] Basophils 10e9/L [facility] LABS Abs Immature 0.0 0 - 0.4 [facility] Granulocytes 10e9/L [facility] LABS Specimen Anatomical Collection Method Collection Time Receive d Time (Source) Location / / Volume Laterality Blood specimen 02/06/2014 5:57 AM 014 6:03 (specimen) CDT AM CDT Omaira Chavez PA-C LAB - BLOOD ORDERABLES Performing Organization Address City/State/ZIP Code Phon e Number [facility] [address] [place] [address] [facility] LABS (ABNORMAL) Lipid panel reflex to direct LDL (02/06/2014 5:57 AM CDT) P athologist Signature Cholesterol 126 <200 mg/dL [facility] LABS Comment: LDL Cholesterol is the primary guide to therapy. The NCEP recommends further evaluation of: patients with cholesterol greater than 200 mg/dL if additional risk facto rs are present, cholesterol greater than 240 mg/dL, triglycerides greater than 1 50 mg/dL, or HDL less than 40 mg/dL. Triglycerides 100 0 - 150 mg/dL [facility] ITY [place] LABS HDL Cholesterol 35 (L) >40 mg/dL [facility] LABS LDL Cholesterol Calculated 71 0 - 129 mg/dL [facility] LABS Comment: LDL Cholesterol is the primary guide to therapy: LDL-cholesterol goal in high risk patients is <100 mg/dL and in very high risk patients is <70 mg/dL. VLDL-Cholesterol 20 0 - 30 mg/dL [facility] Cholesterol/HDL Ratio 3.6 0.0 - 5.0 [facility] LAB[facility] Specimen Anatomical Collection Method Collection Time Receive d Time (Source) Location / / Volume Laterality Blood specimen 02/06/2014 5:57 AM 014 6:03 (specimen) CDT AM CDT Omaira Chavez PA-C LAB - BLOOD ORDERABLES Performing Organization Address City/State/ZIP Code Phon e Number [facility] [address] LABS Tacrolimus level (02/06/2014 5:57 AM CDT) Patholo gist Method Time Signature Tacrolimus S Negative [facility] Last Dose [facility] LABS Tacrolimus 12.7 5.0 - [facility] Level 15.0 ug/L [facility] LABS Comment: Tacrolimus Reference Range Kidney Transplant [...] [facility] [address] [place] [address] [facility] LABS (ABNORMAL) Glucose by meter [...] (L) 13.3 - [facility] 17.7 g/dL [place] LABS Specimen Anatomical Collection Method Collection Time Receive d Time (Source) Location / / Volume Laterality Blood specimen 02/06/2014 1:02 AM 014 1:11 (specimen) CDT AM CDT Deysi Alicea MD LAB - BLOOD ORDERABLES Performing Organization Address City/State/ZIP Code Phon e Number [facility] [address] [place], [place] [phone] [place] [address] LABS (ABNORMAL) Glucose by meter (02/05/2014 10:23 PM CDT) P athologist Signature Glucose 254 (H) 60 - 99 POINT OF CARE mg/dL TEST, GLUCOSE Specimen Anatomical Collection Method Collection Time Receive d Time (Source) Location / / Volume Laterality 02/05/2014 10:23 02/05/2014 PM CDT 10:25 PM CDT Migel Merchant MD LAB - BEAKER POCT Performing Organization Address City/[facility] Code Phon e Number FV POINT OF CARE TEST, GLUCOSE POINT OF CARE TEST, GLUCOSE Heparin 10a Level (02/05/2014 7:32 PM CDT) P athologist Signature Heparin 10A 0.64 IU/mL [facility] LABS Comment: Therapeutic Range: ?? [...] Address City/State/ZIP Code Phon e Number [address] [address] [facility] LABS (ABNORMAL) Glucose by meter [...] Signature INR 1.24 (H) 0.86 - 1.14 [facility] LABS Specimen Anatomical Collection Method Collection Time Receive d Time (Source) Location / / Volume Laterality Blood specimen 02/05/2014 12:04 4 (specimen) PM CDT 12:10 PM CDT Teresa Wright [facility] LAB - BLOOD ORDERABLES Performing Organization Address City/[facility]/ZIP Code Phon e Number [address] LABS (ABNORMAL) CBC with platelets (02/05/2014 12:04 PM CDT) Patholo gist Method Time Signature WBC 7.4 4.0 - 11.0 [facility] 10e9/L [facility] LABS RBC Count 3.31 (L) 4.4 - 5.9 [facility] 10e12/L [facility] LABS Hemoglobin 10.3 (L) 13.3 - [facility] 17.7 g/dL [facility] LABS Hematocrit 31.0 (L) 40.0 - [facility] 53.0 % [facility] LABS MCV 94 78 - 100 [facility] fl [facility] LABS MCH 31.1 26.5 - [facility] 33.0 pg [facility] LABS MCHC 33.2 31.5 - [facility] 36.5 g/dL [facility] LABS RDW 14.7 10.0 - [facility] 15.0 % [facility] LABS Platelet Count 91 (L) 150 - 450 [facility] 10e9/L [facility] LABS Specimen Anatomical Collection Method Collection Time Receive d Time (Source) Location / / Volume Laterality Blood specimen 02/05/2014 12:04 4 (specimen) PM CDT 12:10 PM CDT Omaira Chavez PA-C LAB - BLOOD ORDERABLES Performing Organization Address City/[facility]/ZIP Code Phon e Number [facility] [place] [address] [address] [facility] LABS (ABNORMAL) Glucose by meter (02/05/2014 11:25 AM CDT) P athologist Signature Glucose 190 (H) 60 - 99 POINT OF CARE mg/dL TEST, GLUCOSE Specimen Anatomical Collection Method Collection Time Receive d Time (Source) Location / / Volume Laterality 02/05/2014 11:25 02/05/2014 AM CDT 11:30 AM CDT Migel Merchant MD LAB - BEAKER POCT Performing Organization Address City/[facility]/ZIP Code Phon e Number FV POINT [...] LAB - BEAJ POCT Performing Organization Address City/[facility]/ZIP Code Phon e Number FV POINT [...] LAB - BEAJ POCT Performing Organization Address City/[facility]/ZIP Code Phon e Number FV POINT [...] [facility] LABS Potassium 4.3 3.4 - 5.3 [facility] mmol/L [facility] LABS Chloride 107 94 - 109 [facility] mmol/L [facility] LABS Carbon Dioxide 25 20 - 32 [facility] mmol/L [facility] LABS Anion Gap 10 6 - 17 [facility] mmol/L [facility] LABS Glucose 123 (H) 60 - 99 [facility] mg/dL [facility] LABS Urea Nitrogen 66 (H) 7 - 30 [facility] mg/dL [facility] LABS Creatinine 4.77 (H) 0.66 - [facility] 1.25 mg/dL [facility] LABS GFR Estimate 12 (L) >60 [facility] mL/min/1.7 [place] m2 [facility]AMPUS LABS GFR Estimate If 15 (L) >60 [facility] Black mL/min/1.7 [place] m2 [facility]AMPUS LABS Calcium 9.4 8.5 - 10.4 [facility] mg/dL [facility] LABS Specimen Anatomical Collection Method Collection Time Receive d Time (Source) Location / / Volume Laterality Blood specimen 02/05/2014 7:02 AM 014 7:05 (specimen) CDT AM CDT Omaira Chavez PA-C LAB - BLOOD ORDERABLES Performing Organization Address City/[facility]/ZIP Code Phon e Number [address] LABS (ABNORMAL) Phosphorus (02/05/2014 7:02 AM [...] Center [facility] Hospital/ZIP Code Phon e Number [address] [facility] Magnesium (02/05/2014 7:02 AM CDT) P athologist Signature Magnesium 2.0 1.6 - 2.3 [facility] mg/dL [place] LABS Specimen Anatomical Collection Method Collection Time Receive d Time (Source) Location / / Volume Laterality Blood specimen 02/05/2014 7:02 AM 014 7:05 (specimen) CDT AM CDT Omaira Chavez PA-C LAB - BLOOD ORDERABLES Performing Organization Address City/State/ZIP Code Phon e Number [facility] [address] [place] [address] [facility] LABS (ABNORMAL) CBC with platelets differential (02/05/2014 7:02 AM CDT) Patholo gist Method Time Signature WBC 8.9 4.0 - [facility] 11.0 [facility] 10e9/L [place] LABS RBC Count 3.20 (L) 4.4 - 5.9 [facility] 10e12/L [facility] Hemoglobin 9.7 (L) 13.3 - [facility] 17.7 g/dL [facility] Hematocrit 30.0 (L) 40.0 - [facility] 53.0 % [facility] MCV 94 78 - 100 [facility] fl [facility] MCH 30.3 26.5 - [facility] 33.0 pg [facility] MCHC 32.3 31.5 - [facility] 36.5 g/dL [facility] RDW 14.6 10.0 - [facility] 15.0 % [facility] Platelet Count 96 (L) 150 - 450 [facility] 10e9/L [facility] Diff Method Automated [facility] Method [facility] % Neutrophils 90.2 % [facility] % Lymphocytes 4.4 % [facility] % Monocytes 5.2 % [facility] % Eosinophils 0.0 % [facility] % Basophils 0.0 % [facility] % Immature 0.2 % [facility] Granulocytes [facility] Absolute 8.1 1.6 - 8.3 [facility] Neutrophil 10e9/L [facility] Absolute 0.4 (L) 0.8 - 5.3 [facility] Lymphocytes 10e9/L [facility] Absolute 0.5 0.0 - 1.3 [facility] Monocytes 10e9/L [facility] Absolute 0.0 0.0 - 0.7 [facility] Eosinophils 10e9/L [facility] Absolute 0.0 0.0 - 0.2 [facility] Basophils 10e9/L [facility] Abs Immature 0.0 0 - 0.4 [facility] Granulocytes 10e9/L [facility] Specimen Anatomical Collection Method Collection Time Receive d Time (Source) Location / / Volume Laterality Blood specimen 02/05/2014 7:02 AM 014 7:05 (specimen) CDT AM CDT Omaira Chavez PA-C LAB - BLOOD ORDERABLES Performing Organization Address City/State/ZIP Code Phon e Number [facility] [address] LABS (ABNORMAL) Parathormone intact (02/05/2014 7:02 AM CDT) Patholo gist Method Time Signature Parathyroid 362 (H) 12 - 72 [facility] Hormone Intact pg/mL [facility] Specimen Anatomical Collection Method Collection Time Receive d Time (Source) Location / / Volume Laterality Blood specimen 02/05/2014 7:02 AM 014 7:05 (specimen) CDT AM CDT Sina Robison MD LAB - BLOOD ORDERABLES Performing Organization Address City/State/ZIP Code Phon e Number [address] LABS (ABNORMAL) Ferritin (02/05/2014 7:02 AM CDT) P athologist Signature Ferritin 932 (H) 20 - 300 [facility] ng/mL [place] LABS Specimen Anatomical Collection Method Collection Time Receive d Time (Source) Location / / Volume Laterality Blood specimen 02/05/2014 7:02 AM 014 7:05 (specimen) CDT AM CDT Sina Robison MD LAB - BLOOD ORDERABLES Performing Organization Address City/[facility]/ZIP Code Phon e Number [address] LABS (ABNORMAL) Iron and iron binding capacity (02/05/2014 7:02 AM CDT) Analysis Performed At Patho logist Time Signature Iron 119 35 - 180 [facility] ug/dL [facility] Iron Binding 207 (L) 240 - 430 [facility] Cap ug/dL [facility] Iron Saturation 58 (H) 15 - 46 % [facility] Index [facility] Specimen Anatomical Collection Method Collection Time Receive d Time (Source) Location / / Volume Laterality Blood specimen 02/05/2014 7:02 AM 014 7:05 (specimen) CDT AM CDT Sina Robison MD LAB - BLOOD ORDERABLES Performing Organization Address City/State/ZIP Code Phon e Number [facility] [address] [place] [address] [facility] LABS (ABNORMAL) Glucose by meter (02/05/2014 6:59 AM CDT) P athologist Signature Glucose 123 (H) 60 - 99 POINT OF CARE mg/dL TEST, GLUCOSE Specimen Anatomical Collection Method Collection Time Receive d Time (Source) Location / / Volume Laterality 02/05/2014 6:59 AM 4 7:05 CDT AM CDT Migel LARES - ROBERT POCT Performing Organization Address City/[facility]/ZIP Code Phon e Number FV POINT [...] CDT Migel JONES POCT Performing Organization Address City/[facility]/ZIP Code Phon e Number FV POINT [...] LAB - BEAJ POCT Performing Organization Address City/[facility]/ZIP Code Phon e Number FV POINT [...] LAB - BEAJ POCT Performing Organization Address City/[facility]/ZIP Code Phon e Number FV POINT [...] CDT Migel JONES POCT Performing Organization Address [facility] Phon e Number FV [...] LARES - ROBERT POCT Performing Organization Address [facility] Phon e Number FV POINT OF CARE TEST, GLUCOSE POINT OF CARE TEST, GLUCOSE EKG 12-lead, complete (02/04/2014 11:09 PM CDT) [facility] gist Method Time Signature Interpretation ECG Click View RADIOLOGY Image link RESULTS to view waveform and result Specimen (Source) Anatomical Collection Method Collection Time Re ceived Time Location / / Volume Laterality 02/04/2014 11:09 PM CDT Chemo Carr MD ECG ORDERABLES Performing Organization Address [facility] Phon e Number RADIOLOGY RESULTS (ABNORMAL) Glucose by meter (02/04/2014 10:56 PM CDT) P athologist Signature Glucose 161 (H) 60 - 99 POINT OF CARE mg/dL TEST, GLUCOSE Specimen Anatomical Collection Method Collection Time Receive d Time (Source) Location / / Volume Laterality 02/04/2014 10:56 02/04/2014 PM CDT 11:00 PM CDT Migel JONES POCT Performing Organization Address [facility] Phon e Number FV [...] LAB - BEAJ POCT Performing Organization Address City/[facility]/ZIP Code Phon e Number FV POINT [...] LARES - BEAKER POCT Performing Organization Address City/[facility]/ZIP Code Phon e Number FV POINT [...] Address City/State/ZIP Code Phon e Number [address] [address] [facility] LABS (ABNORMAL) Glucose by meter (02/04/2014 7:01 PM CDT) P athologist Signature Glucose 157 (H) 60 - 99 POINT OF CARE mg/dL TEST, GLUCOSE Specimen Anatomical Collection Method Collection Time Receive d Time (Source) Location / / Volume Laterality 02/04/2014 7:01 PM 4 7:05 CDT PM CDT Migel Merchant MD LAB - BEAKER POCT Performing Organization Address [facility] Phon e Number FV [...] LAB - BEAKER POCT Performing Organization Address [facility] Phon e Number FV [...] LAB - BEAKER POCT Performing Organization Address [facility] Phon e Number FV [...] LAB - BEAJ POCT Performing Organization Address [facility] Phon e Number FV [...] LAB - BEAKER POCT Performing Organization Address [facility] Phon e Number FV [...] LAB - BEAJ POCT Performing Organization Address [facility] Phon e Number FV POINT OF CARE TEST, GLUCOSE POINT OF CARE TEST, GLUCOSE Troponin I (02/04/2014 12:42 PM CDT) athologist Signature Troponin I 0.025 0.000 - [facility] 0.034 ug/L [place] [facility] Specimen Anatomical Collection Method Collection Time Receive d Time (Source) Location / / Volume Laterality Blood specimen 02/04/2014 12:42 4 (specimen) PM CDT 12:45 PM CDT Adeline Diaz MD LAB - BLOOD ORDERABLES Performing Organization Address City/State/ZIP Code Phon e Number [facility] [address] [place] [address] [facility] LABS (ABNORMAL) Glucose by meter (02/04/2014 12:27 PM CDT) athologist Signature Glucose 140 (H) 60 - 99 POINT OF CARE mg/dL TEST, GLUCOSE Specimen Anatomical Collection Method Collection Time Receive d Time (Source) Location / / Volume Laterality 02/04/2014 12:27 02/04/2014 PM CDT 12:30 PM CDT iMgel LARES - BEAJ POCT Performing Organization Address [...] CDT Migel JONES POCT Performing Organization Address City/State/[facility] Code Phon e Number FV POINT [...] EKG 12-lead, complete (02/04/2014 7:03 AM CDT) [facility] Method Time Signature Interpretation ECG Click [...] Address City/State/ZIP Code Phon e Number [id number] [place] [address] LABS (ABNORMAL) Basic metabolic panel (02/04/2014 5:49 AM CDT) [facility] Method Time Signature Sodium 142 133 - 144 [facility] mmol/L [facility] Potassium 4.9 3.4 - 5.3 [facility] mmol/L [facility] Chloride 107 94 - 109 [facility] mmol/L [facility] Carbon Dioxide 23 20 - 32 [facility] mmol/L [facility] Anion Gap 12 6 - 17 [facility] mmol/L [facility] Glucose 151 (H) 60 - 99 [facility] mg/dL [facility] Urea Nitrogen 57 (H) 7 - 30 [facility] mg/dL [facility] Creatinine 5.94 (H) 0.66 - [facility] 1.25 mg/dL [facility] GFR Estimate 10 (L) >60 [facility] mL/min/1.7 [facility] LABS GFR Estimate If 12 (L) >60 [facility] Black mL/min/1.7 [facility]2 [facility] LABS Calcium 9.4 8.5 - 10.4 [facility] mg/dL [facility] Specimen Anatomical Collection Method Collection Time Receive d Time (Source) Location / / Volume Laterality Blood specimen 02/04/2014 5:49 AM 014 5:51 (specimen) CDT AM CDT Omaira Chavez PA-C LAB - BLOOD ORDERABLES Performing Organization Address City/[facility]/ZIP Code Phon e Number [address] LABS (ABNORMAL) Phosphorus (02/04/2014 5:49 AM CDT) P athologist Signature Phosphorus 6.3 (H) 2.5 - 4.5 [facility] mg/dL [place] LABS Specimen Anatomical Collection Method Collection Time Receive d Time (Source) Location / / Volume Laterality Blood specimen 02/04/2014 5:49 AM 014 5:51 (specimen) CDT AM CDT Omaira Chavez PA-C LAB - BLOOD ORDERABLES Performing Organization Address City/State/ZIP Code Phon e Number [facility] [address] LABS Magnesium (02/04/2014 5:49 AM CDT) P athologist Signature Magnesium 2.1 1.6 - 2.3 [facility] mg/dL [place] LABS Specimen Anatomical Collection Method Collection Time Receive d Time (Source) Location / / Volume Laterality Blood specimen 02/04/2014 5:49 AM 014 5:51 (specimen) CDT AM CDT Omaira Chavez PA-C LAB - BLOOD ORDERABLES Performing Organization Address City/State/ZIP Code Phon e Number [facility] [address] [place] [address] [facility] (ABNORMAL) CBC with platelets differential (02/04/2014 5:49 AM CDT) [facility] gist Method Time Signature WBC 13.8 (H) 4.0 - [facility] 11.0 [facility]ERS[facility] 10e9/L CAMPUS LABS RBC Count 3.10 (L) 4.4 - 5.9 [facility] 10e12/L [facility] Hemoglobin 9.5 (L) 13.3 - [facility] 17.7 g/dL [facility] Hematocrit 28.7 (L) 40.0 - [facility] 53.0 % [facility] MCV 93 78 - 100 [facility] fl [facility] MCH 30.6 26.5 - [facility] 33.0 pg [facility] MCHC 33.1 31.5 - [facility] 36.5 g/dL [facility] RDW 14.6 10.0 - [facility] 15.0 % [facility] Platelet Count 91 (L) 150 - 450 [facility] 10e9/L [facility] Diff Method Automated [facility] Method [facility] % Neutrophils 95.8 % [facility] % Lymphocytes 1.2 % [facility] % Monocytes 2.8 % [facility] % Eosinophils 0.0 % [facility] % Basophils 0.0 % [facility] % Immature 0.2 % [facility] Granulocytes [facility] Absolute 13.2 (H) 1.6 - 8.3 [facility] Neutrophil 10e9/L [facility] Absolute 0.2 (L) 0.8 - 5.3 [facility] Lymphocytes 10e9/L [facility] Absolute 0.4 0.0 - 1.3 [facility] Monocytes 10e9/L [facility] Absolute 0.0 0.0 - 0.7 [facility] Eosinophils 10e9/L [facility] Absolute 0.0 0.0 - 0.2 [facility] Basophils 10e9/L [facility] Abs Immature 0.0 0 - 0.4 [facility] Granulocytes 10e9/L [facility] Specimen Anatomical Collection Method Collection Time Receive d Time (Source) Location / / Volume Laterality Blood specimen 02/04/2014 5:49 AM 014 5:51 (specimen) CDT AM CDT Omaira Chavez PA-C LAB - BLOOD ORDERABLES Performing Organization Address City/State/ZIP Code Phon e Number [address] [address] [facility] LABS (ABNORMAL) Glucose by meter [...] LARES - BEAJ POCT Performing Organization Address City/[facility]/ZIP Code Phon e Number FV POINT [...] LAB - BEAJ POCT Performing Organization Address City/[facility]/ZIP Code Phon e Number FV POINT [...] LAB - BEAKER POCT Performing Organization Address City/[facility]/ZIP Code Phon e Number FV POINT [...] [facility] [address] [place], [place] [id number] [place] [address] LABS (ABNORMAL) Hemoglobin (02/03/2014 10:16 PM CDT) P athologist Signature Hemoglobin 9.4 (L) 13.3 - 17.7 [facility] g/dL [place] LABS Specimen Anatomical Collection Method Collection Time Receive d Time (Source) Location / / Volume Laterality Blood specimen 02/03/2014 10:16 4 (specimen) PM CDT 10:19 PM CDT Caitlin Owens MD LAB - BLOOD ORDERABLES Performing Organization Address City/[facility]/ZIP Code Phon e Number [address] [address] [facility] LABS (ABNORMAL) Glucose by meter (02/03/2014 9:55 PM CDT) athologist Signature Glucose 167 (H) 60 - 99 POINT OF CARE mg/dL TEST, GLUCOSE Specimen Anatomical Collection Method Collection Time Receive d Time (Source) Location / / Volume Laterality 02/03/2014 9:55 PM 4 CDT 10:00 PM CDT Migel LARES - ROBERT POCT Performing Organization Address City/[facility]/ZIP Code Phon e Number FV POINT [...] 8:06 PM 4 8:10 CDT PM CDT Migle Nathan Finger MD LAB - BEAKER POCT [...] Center & Hospital/ZIP Code Phon e Number [facility] [address] LABS (ABNORMAL) Hemoglobin (02/03/2014 6:52 PM [...] [facility] Hospital/ZIP Code Phon e Number [facility] [address] LABS (ABNORMAL) Glucose by meter (02/03/2014 6:00 PM CDT) athologist Signature Glucose 140 (H) 60 - 99 POINT OF CARE mg/dL TEST, GLUCOSE Specimen Anatomical Collection Method Collection Time Receive d Time (Source) Location / / Volume Laterality 02/03/2014 6:00 PM 4 6:05 CDT PM CDT Migel Merchant MD LAB - BEAJ POCT Performing Organization Address [facility]/ZIP Code Phon e Number FV POINT [...] LAB - ROBERT POCT Performing Organization Address [facility] Phon e Number FV [...] LAB - BEAJ POCT Performing Organization Address [facility] Phon e Number FV [...] LAB - BEAJ POCT Performing Organization Address [facility] Phon e Number FV [...] Center & Hospital/ZIP Code Phon e Number [id number] [place] [address] LABS (ABNORMAL) Hemoglobin (02/03/2014 1:41 PM CDT) athologist Signature Hemoglobin 9.8 (L) 13.3 - 17.7 [facility] g/dL [facility]AMPUS LABS Specimen Anatomical Collection Method Collection Time Receive d Time (Source) Location / / Volume Laterality Blood specimen 02/03/2014 1:41 PM 014 1:43 (specimen) CDT PM CDT Caitlin Owens MD LAB - BLOOD ORDERABLES Performing Organization Address [facility] Code Phon e Number [phone] [place] [address] LABS (ABNORMAL) Glucose by meter (02/03/2014 1:10 PM CDT) athologist Signature Glucose 135 (H) 60 - 99 POINT OF CARE mg/dL TEST, GLUCOSE Specimen Anatomical Collection Method Collection Time Receive d Time (Source) Location / / Volume Laterality 02/03/2014 1:10 PM 4 1:15 CDT PM CDT Migel Merchant MD LAB - BEAKER POCT Performing Organization Address City/[facility]/ZIP Code Phon e Number FV POINT [...] [facility] [address] LABS (ABNORMAL) Hemoglobin (02/03/2014 10:11 AM [...] [facility] [address] LABS (ABNORMAL) Glucose by meter (02/03/2014 [...] Basic metabolic panel (02/03/2014 5:38 AM CDT) [facility] gist Method Time Signature Sodium [...] Address City/State/ZIP Code Phon e Number [address] [address] [facility] LABS (ABNORMAL) Phosphorus [...] [facility] [address] LABS Magnesium (02/03/2014 5:38 AM CDT) P athologist Signature Magnesium 2.0 1.6 - 2.3 [facility] mg/dL [place] LABS Specimen Anatomical Collection Method Collection Time Receive d Time (Source) Location / / Volume Laterality Blood specimen 02/03/2014 5:38 AM 014 5:40 (specimen) CDT AM CDT Omaira Chavez PA-C LAB - BLOOD ORDERABLES Performing Organization Address City/[facility]/ZIP Code Phon e Number [facility] [address] LABS (ABNORMAL) CBC with platelets differential (02/03/2014 5:38 AM CDT) Patholo gist Method Time Signature WBC 13.2 (H) 4.0 - [facility] 11.0 [facility] 10e9/L [place] LABS RBC Count 3.20 (L) 4.4 - 5.9 [facility] 10e12/L [facility] Hemoglobin 9.9 (L) 13.3 - [facility] 17.7 g/dL [facility] Hematocrit 30.2 (L) 40.0 - [facility] 53.0 % [facility] MCV 94 78 - 100 [facility] fl [facility] MCH 30.9 26.5 - [facility] 33.0 pg [facility] MCHC 32.8 31.5 - [facility] 36.5 g/dL [facility] RDW 14.5 10.0 - [facility] 15.0 % [facility] Platelet Count 108 (L) 150 - 450 [facility] 10e9/L [facility]S Diff Method Automated [facility] Method [facility]S % Neutrophils 96.9 % [facility] % Lymphocytes 0.7 % [facility] % Monocytes 2.1 % [facility] % Eosinophils 0.0 % [facility] [...] 0.0 0.0 - 0.2 [facility] Basophils 10e9/L [facility] [facility] Abs Immature 0.0 0 - 0.4 [facility] Granulocytes 10e9/L [facility] Specimen Anatomical Collection Method Collection Time Receive d Time (Source) Location / / Volume Laterality Blood specimen 02/03/2014 5:38 AM 014 5:40 (specimen) CDT AM CDT Omaira Chavez PA-C LAB - BLOOD ORDERABLES Performing Organization Address City/State/ZIP Code Phon e Number [address] LABS (ABNORMAL) Hemoglobin A1c (02/03/2014 5:38 AM CDT) Analysis Performed At Patho logist Time Signature Hemoglobin A1C 6.2 (H) 4.3 - 6.0 [facility] % [facility] Specimen Anatomical Collection Method Collection Time Receive d Time (Source) Location / / Volume Laterality Blood specimen 02/03/2014 5:38 AM 014 5:40 (specimen) CDT AM CDT Caitlin Owens MD LAB - BLOOD ORDERABLES Performing Organization Address City/State/ZIP Code Phon e Number [address] LABS (ABNORMAL) Glucose by meter (02/03/2014 [...] 3.4 - 5.3 [facility] mmol/L [place] [facility] Specimen Anatomical Collection Method Collection Time Receive d Time (Source) Location / / Volume Laterality Blood specimen 02/03/2014 1:18 AM 014 1:20 (specimen) CDT AM CDT Caitlin Owens MD LAB - BLOOD ORDERABLES Performing Organization Address City/[facility]/ZIP Code Phon e Number [address] LABS (ABNORMAL) Hemoglobin (02/03/2014 1:18 AM CDT) P athologist Signature Hemoglobin 9.8 (L) 13.3 - 17.7 [facility] g/dL [place] [facility] Specimen Anatomical Collection Method Collection Time Receive d Time (Source) Location / / Volume Laterality Blood specimen 02/03/2014 1:18 AM 014 1:20 (specimen) CDT AM CDT Caitlin Owens MD LAB - BLOOD ORDERABLES Performing Organization Address City/[facility]/ZIP Code Phon e Number [address] LABS (ABNORMAL) Glucose by meter (02/03/2014 1:16 AM CDT) P athologist Signature Glucose 186 (H) 60 - 99 POINT OF CARE mg/dL TEST, GLUCOSE Specimen Anatomical Collection Method Collection Time Receive d Time (Source) Location / / Volume Laterality 02/03/2014 1:16 AM 4 1:20 CDT AM CDT Migel Merchant MD LAB - BEAKER POCT Performing Organization Address City/[facility]/ZIP Code Phon e Number FV POINT [...] LAB - BEAKER POCT Performing Organization Address City/[facility]/ZIP Code Phon e Number FV POINT [...] [facility] Hospital/ZIP Code Phon e Number [facility] [address] LABS Magnesium (02/02/2014 10:50 PM CDT) athologist Signature Magnesium 1.8 1.6 - 2.3 [facility] mg/dL [place] [facility] Specimen Anatomical Collection Method Collection Time Receive d Time (Source) Location / / Volume Laterality Blood specimen 02/02/2014 10:50 201 4 (specimen) PM CDT 11:06 PM CDT Caitlin Owens MD LAB - BLOOD ORDERABLES Performing Organization Address City/[facility]/ZIP Code Phon e Number [facility] [address] LABS (ABNORMAL) Basic metabolic panel (02/02/2014 10:50 PM CDT) [facility] gist Method Time Signature Sodium 138 133 - 144 [facility] mmol/L [facility]S Potassium 4.5 3.4 - 5.3 [facility] mmol/L [facility]S Chloride 104 94 - 109 [facility] mmol/L [facility]S Carbon Dioxide 25 20 - 32 [facility] mmol/L [facility]S Anion Gap 10 6 - 17 [facility] mmol/L [facility] Glucose 134 (H) 60 - 99 [facility] mg/dL [facility] Urea Nitrogen 44 (H) 7 - 30 [facility] mg/dL [facility] Creatinine 6.14 (H) 0.66 - [facility] 1.25 mg/dL [facility] GFR Estimate 9 (L) >60 [facility] mL/min/1.7 [place] [id number] CAMPUS LABS GFR Estimate If 11 (L) >60 [facility] Black mL/min/1.7 [place] [id number] CAMPUS LABS Calcium 8.8 8.5 - 10.4 [facility] mg/dL [facility] Specimen Anatomical Collection Method Collection Time Receive d Time (Source) Location / / Volume Laterality Blood specimen 02/02/2014 10:50 4 (specimen) PM CDT 11:06 PM CDT Caitlin Owens MD LAB - BLOOD ORDERABLES Performing Organization Address City/State/ZIP Code Phon e Number [facility] [address] [place] [address] [place] [facility] (ABNORMAL) CBC with platelets differential (02/02/2014 10:50 PM CDT) [facility] gist Method Time Signature WBC 8.2 4.0 - [facility] 11.0 [facility] 10e9/L [place] LABS RBC Count 3.34 (L) 4.4 - 5.9 [facility] 10e12/L [facility] Hemoglobin 10.3 (L) 13.3 - [facility] 17.7 g/dL [facility] Hematocrit 30.9 (L) 40.0 - [facility] 53.0 % [facility] MCV 93 78 - 100 [facility] fl [facility] [facility] MCH 30.8 26.5 - [facility] 33.0 pg [facility] MCHC 33.3 31.5 - [facility] 36.5 g/dL [facility] RDW 14.3 10.0 - [facility] 15.0 % [facility] Platelet Count 79 (L) 150 - 450 [facility] 10e9/L [facility] Diff Method Automated [facility] Method [facility] % Neutrophils 96.7 % [facility] % Lymphocytes 1.6 % [facility] % Monocytes 1.2 % [facility] % Eosinophils 0.4 % [facility] % Basophils 0.0 % [facility] % Immature 0.1 % [facility] Granulocytes [facility] Absolute 7.9 1.6 - 8.3 [facility] Neutrophil 10e9/L [facility] Absolute 0.1 (L) 0.8 - 5.3 [facility] Lymphocytes 10e9/L [facility] Absolute 0.1 0.0 - 1.3 [facility] Monocytes 10e9/L [facility] Absolute 0.0 0.0 - 0.7 [facility] Eosinophils 10e9/L [facility] Absolute 0.0 0.0 - 0.2 [facility] Basophils 10e9/L [facility] Abs Immature 0.0 0 - 0.4 [facility] Granulocytes 10e9/L [facility] Specimen Anatomical Collection Method Collection Time Receive d Time (Source) Location / / Volume Laterality Blood specimen 02/02/2014 10:50 4 (specimen) PM CDT 11:06 PM CDT Caitlin Owens MD LAB - BLOOD ORDERABLES Performing Organization Address City/State/ZIP Code Phon e Number [facility] [address] LABS (ABNORMAL) VENOUS PANEL (02/02/2014 10:09 PM CDT) [facility] Method Time Signature Ph Venous 7.31 (L) 7.32 - [facility] 7.43 pH [facility] PCO2 Venous 52 (H) 40 - 50 [facility] mm Hg [facility] PO2 Venous 34 25 - 47 [facility] mm Hg [facility] Bicarbonate 26 21 - 28 [facility] Venous mmol/L [facility] Base Deficit 0.3 mmol/L [facility] Venous [facility] Comment: Reference range: -7.7 to 1.9 FIO2 45 [facility] LABS Sodium 137 133 - 144 mmol/L [facility] LABS Potassium 4.4 3.4 - 5.3 mmol/L [facility] LABS Hemoglobin 10.0 (L) 13.3 - 17.7 g/dL [facility] LABS Glucose 116 (H) 60 - 99 mg/dL [facility] LABS Calcium Ionized Whole Blood 4.8 4.4 - 5.2 mg/dL [facility] LABS Specimen Anatomical Collection Method Collection Time Receive d Time (Source) Location / / Volume Laterality 02/02/2014 10:09 02/02/2014 PM CDT 10:14 PM CDT Migel Merchant MD LAB - BLOOD ORDERABLES Performing Organization Address City/[facility]/ZIP Code Phon e Number [facility] [address] LABS (ABNORMAL) Glucose by meter (02/02/2014 9:24 PM CDT) P athologist Signature Glucose 129 (H) 60 - 99 POINT OF CARE mg/dL TEST, GLUCOSE Specimen Anatomical Collection Method Collection Time Receive d Time (Source) Location / / Volume Laterality 02/02/2014 9:24 PM 4 9:31 CDT PM CDT Migel Merchant MD LAB - ROBERT POCT Performing Organization Address City/[facility] Phon e Number FV [...] LARES - BEAJ POCT Performing Organization Address City/[facility] Phon e Number FV POINT OF CARE TEST, GLUCOSE POINT OF CARE TEST, GLUCOSE (ABNORMAL) VENOUS PANEL (02/02/2014 6:40 PM CDT) P athologist Signature Ph Venous 7.35 7.32 - [facility] 7.43 pH [facility] PCO2 Venous 50 40 - 50 mm [facility] Hg [facility] PO2 Venous 46 25 - 47 mm [facility] Hg [facility] Bicarbonate 28 21 - 28 [facility] Venous mmol/L [facility] Base Excess 1.8 mmol/L [facility] Venous [facility] Comment: Reference range: -7.7 to 1.9 FIO2 100% [facility] LABS Sodium 141 133 - 144 mmol/L [facility] LABS Potassium 3.7 3.4 - 5.3 mmol/L [facility] LABS Hemoglobin 10.3 (L) 13.3 - 17.7 g/dL [facility] LABS Glucose 76 60 - 99 mg/dL [facility] LABS Calcium Ionized Whole Blood 4.8 4.4 - 5.2 mg/dL [facility] Specimen Anatomical Collection Method Collection Time Receive d Time (Source) Location / / Volume Laterality 02/02/2014 6:40 PM 4 6:44 CDT PM CDT Migel Merchant MD LAB - BLOOD ORDERABLES Performing Organization Address City/State/ZIP Code Phon e Number [facility] [address] [place] [address] [facility] LABS Glucose by meter (02/02/2014 [...] LAB - BEAKER POCT Performing Organization Address [facility] Phon e Number FV [...] MARYELLEN Blood component (02/02/2014 2:07 PM CDT) [facility] Method Time Signature Unit Number [id number] [facility]S Blood Red Blood [facility] Component Cells [facility] LABS Reduced Division 00 [facility] LABS Status of No longer [facility] Unit available [facility] 02/06/2014 HOSPITAL LAB 0300 Specimen Anatomical Collection Method Collection Time Receive d Time (Source) Location / / Volume Laterality 02/02/2014 2:07 PM 4 2:10 CDT PM CDT Caitlin Owens MD LABORATORY Performing Organization Address City/[facility]/ZIP Code Phon e Number [place] [address] [place], [place] [address] [facility] LABS [facility] LAB Blood component (02/02/2014 2:07 PM CDT) [facility] Method Time Signature Unit Number [id number] [facility]S Blood Red Blood [facility] Component Cells [facility] LABS Reduced Division 00 [facility] LABS Status of No longer [facility] Unit available [facility] 02/06/2014 HOSPITAL LAB 0300 Specimen Anatomical Collection Method Collection Time Receive d Time (Source) Location / / Volume Laterality 02/02/2014 2:07 PM 4 2:10 CDT PM CDT Caitlin Owens MD LABORATORY Performing Organization Address City/[facility]/ZIP Code Phon e Number [place] [address], [place] [address] [facility] LABS [facility] LAB ABO/Rh type and screen (02/02/2014 2:07 PM CDT) Patholo gist Method Time Signature Units Ordered 2 [facility]S ABO A [facility] RH(D) Pos [facility] Antibody Neg [facility] Screen [facility] Test Valid [facility] Only At [facility] BLOOD BANK Center,[place] LAB w Hospital Specimen 02/05/2014 [facility] Expires [facility]OD [facility] LAB Crossmatch Red Blood [facility] Cells [facility] Specimen Anatomical Collection Method Collection Time Receive d Time (Source) Location / / Volume Laterality Blood specimen 02/02/2014 2:07 PM 014 2:10 (specimen) CDT PM CDT Caitlin Owens MD LAB - BLOOD BANK TEST ORDER Performing Organization Address City/State/ZIP Code Phon e Number [facility] [address] [place], [place] [id number] [place] [address] LABS [facility] BLOOD BANK LAB (ABNORMAL) Lipid Profile (02/02/2014 2:07 PM CDT) P athologist Signature Cholesterol 135 <200 mg/dL [facility] LABS Comment: LDL Cholesterol is the primary guide to therapy. The NCEP recommends further evaluation of: patients with cholesterol greater than 200 mg/dL if additional risk facto rs are present, cholesterol greater than 240 mg/dL, triglycerides greater than 1 50 mg/dL, or HDL less than 40 mg/dL. Triglycerides 124 0 - 150 mg/dL [facility] HDL Cholesterol 34 (L) >40 mg/dL [facility] LABS LDL Cholesterol Calculated 77 0 - 129 mg/dL [facility] LAB[facility] Comment: LDL Cholesterol is the primary guide to therapy: LDL-cholesterol goal in high risk patients is <100 mg/dL and in very high risk patients is <70 mg/dL. VLDL-Cholesterol 25 0 - 30 mg/dL [facility] Cholesterol/HDL Ratio 4.0 0.0 - 5.0 [facility] LAB[facility] Specimen Anatomical Collection Method Collection Time Receive d Time (Source) Location / / Volume Laterality Blood specimen 02/02/2014 2:07 PM 014 2:08 (specimen) CDT PM CDT Caitlin Owens MD LAB - BLOOD ORDERABLES Performing Organization Address City/[facility]/ZIP Code Phon e Number [facility] [address] LABS (ABNORMAL) Hemoglobin A1c (02/02/2014 2:07 PM CDT) Analysis Performed At Patho logist Time Signature Hemoglobin A1C 6.2 (H) 4.3 - 6.0 [facility] Specimen Anatomical Collection Method Collection Time Receive d Time (Source) Location / / Volume Laterality Blood specimen 02/02/2014 2:07 PM 014 2:08 (specimen) CDT PM CDT Caitlin Owens MD LAB - BLOOD ORDERABLES Performing Organization Address City/[facility]/ZIP Code Phon e Number [facility] [address] LABS Hepatitis C antibody (02/02/2014 2:07 PM CDT) [facility] gist Method Time Signature Hepatitis C Negative NEG [facility] Antibody MICROBIOLOGY Specimen Anatomical Collection Method Collection Time Receive d Time (Source) Location / / Volume Laterality Blood specimen 02/02/2014 2:07 PM 014 2:08 (specimen) CDT PM CDT Caitlin Owens MD LAB - BLOOD ORDERABLES Performing Organization Address City/[facility]/ZIP Code Phon e Number [facility] 500 [place], [place] [id number] [place] [address] MICROBIOLOGY Hepatitis B core antibody IgM (02/02/2014 2:07 PM CDT) [facility] gist Method Time Signature Hepatitis B Negative NEG [facility] Core IgM MICROBIOLOGY Specimen Anatomical Collection Method Collection Time Receive d Time (Source) Location / / Volume Laterality Blood specimen 02/02/2014 2:07 PM 014 2:08 (specimen) CDT PM CDT Caitlin Owens MD LAB - BLOOD ORDERABLES Performing Organization Address City/[facility]/ZIP Code Phon e Number [id number] [place] [address] MICROBIOLOGY Hepatitis B surface antigen (02/02/2014 2:07 PM CDT) [facility] gist Method Time Signature Hep B Surface Negative NEG [facility] Agn MICROBIOLOGY Specimen Anatomical Collection Method Collection Time Receive d Time (Source) Location / / Volume Laterality Blood specimen 02/02/2014 2:07 PM 2 014 2:08 (specimen) CDT PM CDT Caitlin Owens MD LAB - BLOOD ORDERABLES Performing Organization Address City/[facility]/ZIP Code Phon e Number [facility] [address] MICROBIOLOGY HIV Antigen Antibody Combo (02/02/2014 2:07 PM CDT) [facility] Method Time Signature HIV Antigen Nonreactive NR [facility] Antibody HIV-1 p24 Ag & HIV-1/HIV-2 Ab Not Detected [facility] LABS Specimen Anatomical Collection Method Collection Time Receive d Time (Source) Location / / Volume Laterality Blood specimen 02/02/2014 2:07 PM 2 014 2:08 (specimen) CDT PM CDT Caitlin Owens MD LAB - BLOOD ORDERABLES Performing Organization Address City/[facility]/ZIP Code Phon e Number [facility] [address] LABS EBV Capsid Antibody IgM (02/02/2014 2:07 PM CDT) [facility] Method [place] Signature EBV Capsid <0.2 0.0 - 0.8 [facility] Antibody IgM No detectable antibody. AI [facility] LABS Specimen Anatomical Collection Method Collection Time Receive d Time (Source) Location / / Volume Laterality Blood specimen 02/02/2014 2:07 PM 014 2:08 (specimen) CDT PM CDT Caitlin Owens MD LAB - BLOOD ORDERABLES Performing Organization Address City/[facility]/ZIP Code Phon e Number [facility] [address] LABS (ABNORMAL) EBV Capsid Antibody IgG (02/02/2014 2:07 PM CDT) [facility] Method [place] Signature EBV Capsid >8.0 0.0 - 0.8 [facility] Antibody IgG Positive, suggests recent or past exposure [facility] [place] LABS Specimen Anatomical Collection Method Collection Time Receive d Time (Source) Location / / Volume Laterality Blood specimen 02/02/2014 2:07 PM 014 2:08 (specimen) CDT PM CDT Caitlin Owens MD LAB - BLOOD ORDERABLES Performing Organization Address City/[facility]/ZIP Code Phon e Number [facility] [address] [place] [address] [facility] LABS CMV antibody IgM (02/02/2014 2:07 PM CDT) Analysis Performed At Patho logist Time Signature CMV Antibody <0.2 0.0 - 0.8 [facility] IgM Negative [facility] LABS Specimen Anatomical Collection Method Collection Time Receive d Time (Source) Location / / Volume Laterality Blood specimen 02/02/2014 2:07 PM 014 2:08 (specimen) CDT PM CDT Caitlin Owens MD LAB - BLOOD ORDERABLES Performing Organization Address City/[facility]/ZIP Code Phon e Number [facility] [address] [place], [place] [phone] [place] [address] LABS (ABNORMAL) CMV Antibody IgG (02/02/2014 2:07 PM CDT) P athologist Signature CMV Antibody 7.8 (H) 0.0 - 0.8 [facility] IgG [facility] LABS Comment: Positive Specimen Anatomical Collection Method Collection Time Receive d Time (Source) Location / / Volume Laterality Blood specimen 02/02/2014 2:07 PM 014 2:08 (specimen) CDT PM CDT Caitlin Owens MD LAB - BLOOD ORDERABLES Performing Organization Address City/[facility]/ZIP Code Phon e Number [facility] [address] [place], [place] [phone] [place] [address] LABS (ABNORMAL) Comprehensive metabolic panel (02/02/2014 2:07 PM CDT) Patholo gist Method Time Signature Sodium 141 133 - 144 [facility] mmol/L [facility] LABS Potassium 4.2 3.4 - 5.3 [facility] mmol/L [facility] LABS Chloride 101 94 - 109 [facility] mmol/L [facility] LABS Carbon Dioxide 26 20 - 32 [facility] mmol/L [facility] LABS Anion Gap 13 6 - 17 [facility] mmol/L [facility] LABS Glucose 112 (H) 60 - 99 [facility] mg/dL [facility] LABS Urea Nitrogen 42 (H) 7 - 30 [facility] mg/dL [facility] LABS Creatinine 6.03 (H) 0.66 - [facility] 1.25 [facility] mg/dL CAMPUS LABS GFR Estimate 9 (L) >60 [facility] mL/min/1. [facility] 7m2 [place] LABS GFR Estimate If 11 (L) >60 [facility] Black mL/min/1. [facility] [address] LABS Calcium 9.9 8.5 - [facility] 10.4 [place] mg/dL [place] LABS Bilirubin Total 0.7 0.2 - 1.3 [facility] mg/dL [facility] LABS Albumin 4.2 3.3 - 4.9 [facility] g/dL [facility]S Protein Total 7.5 6.8 - 8.8 [facility] g/dL [facility] LABS Alkaline 88 40 - 150 [facility] Phosphatase U/L [facility] ALT 33 0 - 70 [facility] U/L [facility] AST 18 0 - 45 [facility] U/L [facility] LABS Specimen Anatomical Collection Method Collection Time Receive d Time (Source) Location / / Volume Laterality Blood specimen 02/02/2014 2:07 PM 014 2:08 (specimen) CDT PM CDT Caitlin Owens MD LAB - BLOOD ORDERABLES Performing Organization Address City/State/ZIP Code Phon e Number [address] LABS (ABNORMAL) CBC with platelets differential (02/02/2014 2:07 PM CDT) [facility] gist Method Time Signature WBC 6.3 4.0 - [facility] 11.0 [facility] 10e9/L [place] LABS RBC Count 3.71 (L) 4.4 - 5.9 [facility] 10e12/L [facility] Hemoglobin 11.5 (L) 13.3 - [facility] 17.7 g/dL [facility] LABS Hematocrit 33.7 (L) 40.0 - [facility] 53.0 % [facility] MCV 91 78 - 100 [facility] fl [facility] MCH 31.0 26.5 - [facility] 33.0 pg [facility] MCHC 34.1 31.5 - [facility] 36.5 g/dL [facility]S RDW 14.0 10.0 - [facility] 15.0 % [facility] Platelet Count 110 (L) 150 - 450 [facility] 10e9/L [facility] LABS Diff Method Automated [facility] Method [facility] LABS % Neutrophils 52.4 % [facility] LABS % Lymphocytes 32.1 % [facility] % Monocytes 7.9 % [facility] % Eosinophils 7.1 % [facility] % Basophils 0.3 % [facility] % Immature 0.2 % [facility] Granulocytes [facility] Absolute 3.3 1.6 - 8.3 [facility] Neutrophil 10e9/L [facility] [place] [facility] Absolute 2.0 0.8 - 5.3 [facility] Lymphocytes 10e9/L [facility] Absolute 0.5 0.0 - 1.3 [facility] Monocytes 10e9/L [facility] Absolute 0.5 0.0 - 0.7 [facility] Eosinophils 10e9/L [facility] Absolute 0.0 0.0 - 0.2 [facility] Basophils 10e9/L [facility] Abs Immature 0.0 0 - 0.4 [facility] Granulocytes 10e9/L [facility] LABS Specimen Anatomical Collection Method Collection Time Receive d Time (Source) Location / / Volume Laterality Blood specimen 02/02/2014 2:07 PM 02/02/ 014 2:08 (specimen) CDT PM CDT Caitlin Owens MD LAB - BLOOD ORDERABLES Performing Organization Address City/State/ZIP Code Phon e Number [facility] [address] LABS Creatinine urine calculation only (02/02/2014 2:00 PM CDT) P athologist Signature Creatinine 88 mg/dL [facility] Urine [place] LABS Specimen Anatomical Collection Method Collection Time Receive d Time (Source) Location / / Volume Laterality 02/02/2014 2:00 PM 4 2:12 CDT PM CDT Caitlin Owens MD LAB - URINE ORDERABLES Performing Organization Address City/[facility] Phon e Number [facility] [address] LABS (ABNORMAL) Urine culture (02/02/2014 2:00 PM CDT) Component Value Ref Test Analysis Performed At Patholo gist Range Method Time Signature Specimen [facility]stream [facility] Special Specimen received [facility] Requests in preservative MICROBIOLOGY Culture Micro <10,000 colonies/mL Gram pos itive cocci No further identification Susceptibility [facility] testing not routinely done [place] CROBIOLOGY <10,000 colonies/mL Strain 2 Gram positive [...] MICRO GENERAL ORDERABL ES Performing Organization Address City/[facility]/ZIP Code Phon e Number [address] LABS [facility] MICROBIOLOGY (ABNORMAL) Protein random urine (02/02/2014 2:00 PM CDT) [facility] Method Time Signature Protein Random 1.89 g/L [facility] Urine [facility] LABS Protein Total 2.15 (H) 0 - 0.2 [facility] Urine g/gr g/g [facility] LABS Specimen Anatomical Collection Method Collection Time Receive d Time (Source) Location / / Volume Laterality Urine specimen URINE SPECIMEN 02/02/2014 2:00 PM 02/02 2:12 (specimen) OBTAINED BY CLEAN CDT PM CDT CATCH PROCEDURE / Unknown Caitlin Owens MD LAB - URINE ORDERABLES Performing Organization Address City/[facility] Phon e Number [address] LABS (ABNORMAL) Routine UA with microscopic (02/02/2014 2:00 PM CDT) [facility] Method Time Signature Color Urine Light Yellow [facility] LABS Appearance Urine Clear [facility] LABS Glucose Urine 70 (A) NEG mg/dL [facility] LABS Bilirubin Urine Negative NEG [facility] LABS Ketones Urine Negative NEG mg/dL [facility] LABS Specific [place] 1.008 1.003 - [facility] Urine 1.035 [facility] LABS Blood Urine Negative NEG [facility] LABS pH Urine 8.0 (H) 5.0 - 7.0 [facility] pH [facility] LABS Protein Albumin 100 (A) NEG mg/dL [facility] Urine [facility] LABS Urobilinogen Normal 0.0 - 2.0 [facility] mg/dL mg/dL [facility] LABS Nitrite Urine Negative NEG [facility] LABS Leukocyte Negative NEG [facility] Esterase Urine [facility] LABS Source Clean catch [facility] urine [facility] LABS WBC Urine 1 0 - 2 [...] [facility] [address] [place] [address] [facility] LABS (ABNORMAL) Glucose by meter (02/02/2014 [...] 12-lead, tracing only (02/02/2014 1:58 PM CDT) [facility] gist Method Time Signature Interpretation ECG Click View RADIOLOGY Image link RESULTS to view waveform and result Specimen (Source) Anatomical Collection Method Collection Time Re ceived Time Location / / Volume Laterality 02/02/2014 1:58 PM CDT Caitlin Owens MD ECG ORDERABLES Performing Organization Address City/[facility]/ZIP [facility] Phon e Number RADIOLOGY RESULTS documented in [...] dose, When verbally ordered by the prescriber. [place] throat with 1-4 sprays 5 minutes prior [...] draw. documented in this encounter Care Teams Artificial Intelligence Specialist Relationship Specialty Start Date End Date Momo Forbes PCP - General Family Practice 01/02/14 [facility] [address] [place] [address] Ingrid Santana, RN Registered Nurse Transplant 02/10/12 documented as of this encounter
--- OUTSIDE RECORDS SUMMARY | 2022-07-10 14:10 | XMS_ITS | Encounter Summary ---
:1950 Author Organization [place] Address [address] [place] [address] Care Team Providers Name Role Phone Ingrid Santana RN Unavailable Unavailable Momo Forbes Primary Care Provider Encounter Details Date Type Department Care Team Description 01/21/2014 Results Only LABORATORY RESULTS Mingo Dangelo MD [address] [address] [facility] [address] [place] [address] (Wo rk) Social History Tobacco [...] HLA Lukasz Class I Single Antigen (01/21/2014) [facility] gist Method Time Signature SA1 Test [...] Phon e Number [facility] LABORATORY Immunology/Histocompatabil [place], [place] [address] ity [facility] [address], Room 3[address]580 HISTOTRAC documented in this encounter Visit Diagnoses Not on filedocumented in this encounter Care Teams Choirmaster Relationship Specialty Start Date End Date Momo Forbes PCP - General Family Practice 01/02/14 [facility] [address] [place], [place] [phone] Ingrid Santana, RN Registered Nurse Transplant 02/10/12 documented as of this encounter
--- OUTSIDE RECORDS SUMMARY | 2022-07-10 14:10 | XMS_ITS | Encounter Summary ---
:1950 Author Organization [place] Address [address] [place] [address] Care Team Providers Name Role Phone Ingrid Santana RN Unavailable Unavailable Momo Forbes Primary Care Provider Encounter Details Date Type Department Care Team Description 01/20/2014 Orders Only [facility], [facility] jm [place] [address] [phone] [place] [address] 140 [place] [address] (Wo rk) Social History Tobacco [...] Results Tacrolimus level (02/15/2014 8:55 AM CDT) [facility] Method Time Signature Tacrolimus Last 02/14/2014 [facility] Dose 2030 [facility] Tacrolimus 5.9 5.0 - [facility] Level 15.0 ug/L [facility] Comment: Tacrolimus Reference Range Kidney Transplant [...] Phon e Number [facility] 500 [place], [place] [phone] [place] [address] LABS documented in this encounter Visit Diagnoses Not on filedocumented in this encounter Care Teams Office Chair Assembler Relationship Specialty Start Date End Date Momo Forbes PCP - General Family Practice 01/02/14 [facility] [address] [place] [address] Ingrid Santana, RN Registered Nurse Transplant 02/10/12 documented as of this encounter
--- OUTSIDE RECORDS SUMMARY | 2022-07-10 14:10 | XMS_ITS | Encounter Summary ---
:1950 Author Organization [place] Address [address] [place] [address] Care Team Providers Name Role Phone Ingrid Santana RN Unavailable Unavailable Momo Forbes Primary Care Provider Reason for Visit Reason Onset Date Comments Pre Visit Planning - Done 01/30/2014 EKG: pre op: [age] yo M, here for continued clearance for possib le kidney txp. Encounter Details Date Type Department Care Team Description 01/30/2014 PRE VISIT [facility] Barbara Bradley Pre Visit Planning - [facility] MD Monae Done (EKG: pre op: 63 [address] [place] M, [place] [address] continued clearance 4th Floor, Clinic 4B for possible kidney [facility] 88 txp.) [address] [place] [phone] Social History Tobacco Use Types Packs/Day Years [...] disease documented in this encounter Care Teams Strategic Marketing Leader Relationship Specialty Start Date End Date Momo Forbes PCP - General Family Practice 01/02/14 [facility] [address] [place] [address] Ingrid Santana, RN Registered Nurse Transplant 02/10/12 documented as of this encounter
--- OUTSIDE RECORDS SUMMARY | 2022-07-10 14:11 | XMS_ITS | Encounter Summary ---
:1950 Author Organization [place] Address [address] [place] [address] Care Team Providers Name Role Phone Toña Jones MD Primary Care Provider Ingrid Santana RN Unavailable Unavailable Encounter Details Date Type Department Care Team Description 07/03/2012 Results Only LABORATORY RESULTS Barbara Bradley MD [address] [place], [place] [address] Social History Tobacco Use [...] in this encounter Results Virtual Crossmatch (07/03/2012) [facility] Method Time Signature Crossmatch Donor:ABRAHAM HICKEY ? Crossmatch Date:07/24/2012 HISTOTRAC Result (Note) Serum Date ??Test ?Result ? Donor Specific Antibody ?Comments 07/03/2012 ??Class I/Virtxm1 ? DSA ?None ? 07/03/2012 ??Class II/Virtxm 1 ?DSA ?None ? Specimen (Source) Anatomical Collection Method Collection Time Re ceived Time Location / / Volume Laterality 07/03/2012 07/05/2012 1:57 PM TOLL PATROLMAN Barbara Bradley MD LAB - IMMUNOLOGY ORDERABLES Performing Organization Address City/State/ZIP Code Phon e Number [facility] Immunology/Histocompatabil [place], [place] [address] [facility] [address], Room 3-580 HISTOTRAC documented in this encounter Visit Diagnoses Not on filedocumented in this encounter Care Teams Claims Associate Relationship Specialty Start Date End Date Toña Jones MD PCP - General Nephrology 11/25/11 01/01/14 Ingrid Santana RN Registered Nurse Transplant 02/10/12 documented as of this encounter
--- OUTSIDE RECORDS SUMMARY | 2022-07-10 14:11 | XMS_ITS | Encounter Summary ---
:1950 Author Organization [place] Address [facility] [place] [address] Care Team Providers Name Role Phone Toña Jones MD Primary Care Provider Ingrid Santana RN Unavailable Unavailable Reason for Visit Reason Comments Social Work Services Encounter Details Date Type Department Care Team Description 02/10/2012 Office Visit The Transplant Akanksha Stacy Organ transplant 2nd Floor, Clinic 2A SHALOM Zacarias candidate (Primary [facility] Dx) [address] [phone] Social History Tobacco Use Types Packs/Day Years [...] old Duration of Interview: 40 min Process: Qcym-sg-Aibg Interview (counseling < 50%) Present at Appointment: Latrell, his brother Kiran and Latrell Zamora, Transplant Financial Manager Field ServicesPlant General Manager Worker: CECY Ortiz, SPECIAL PROCEDURES TECH Date: February 10, 2012 Type of transplant: Kidney Donor type: Latrell indicated that he does not know of any potential donors at this time. Cadaver Prior Transplants: No Status of Transplant: Current Living Situation Location: [facility] [address] [place] [address] [facility] [phone] With Whom: Alone Family/ Social Support: Kiran lives in [place], [place]. Available, helpful Committed relationship: Latrell indicated [...] Income Savings Insurance Latrell has BC/BS through [employer] until 07/22/13. He has also applied for [...] that assist with fund raising. Discussed asking private household worker for assistance with cobra premiums and [...] No Adequate Finances Yes Signature: CECY Ortiz, [facility] Title: Clinical Process Development Technician documented in this encounter Plan of Treatment Not on filedocumented as of this encounter Visit Diagnoses Diagnosis Organ transplant candidate - Primary Awaiting organ transplant status documented in this encounter Care Teams Tin Plater Relationship Specialty Start Date End Date Toña Jones MD PCP - General Nephrology 11/25/11 01/01/14 Ingrid Santana, RN Registered Nurse Transplant 02/10/12 documented as of this encounter
--- OUTSIDE RECORDS SUMMARY | 2022-07-10 14:11 | XMS_ITS | Encounter Summary ---
:1950 Author Organization [place] Address [facility] [place] [address] Care Team Providers Name Role [...] filedocumented in this encounter Care Teams Film Developer Relationship Specialty Start Date End Date Toña Jones MD PCP - General Nephrology 11/25/11 01/01/14 Momo Forbes PCP - General Family Practice 01/02/[address] [place] [address] Ingrid Santana, RN Registered Nurse Transplant 02/10/12 documented as of this encounter
--- OUTSIDE RECORDS SUMMARY | 2022-07-10 14:11 | XMS_ITS | Encounter Summary ---
:1950 Author Organization [place] Address [facility] [place] [address] Care Team Providers Name Role Phone Toña [...] HLA Lukasz Class I Single Antigen (04/16/2013) [facility] gist Method Time Signature [...] Phon e Number [facility] Immunology/Histocompatabil [place], [place] [address] ity [facility] [address] Building, Room 3-580 HISTOTRAC documented in this encounter Visit Diagnoses Not on filedocumented in this encounter Care Teams Sectionizer Relationship Specialty Start Date End Date Toña Jones MD PCP - General Nephrology 11/25/11 01/01/14 Ingrid Santana, RN Registered Nurse Transplant 02/10/12 documented as of this encounter
--- OUTSIDE RECORDS SUMMARY | 2022-07-10 14:11 | XMS_ITS | Encounter Summary ---
:1950 Author Organization [place] Address [address] [place] [address]. [place] [address] Care Team Providers Name Role Phone Toña Jones MD Primary Care Provider Ingrid Santana RN Unavailable Unavailable Momo Forbes Primary Care Provider Encounter Details Date Type Department Care Team Description 02/18/2012 Abstract The Transplant [facility] r 2nd Floor, Clinic [address]A [address] [phone] Social History Tobacco Use [...] in this encounter Care Teams Fire Management Technician Relationship Specialty Start Date End Date Toña Jones MD PCP - General Nephrology 11/25/11 01/01/14 Momo Forbes PCP - General Family Practice 01/02/[address] [address] Ingrid Santana, RN Registered Nurse Transplant 02/10/12 documented as of this encounter
--- OUTSIDE RECORDS SUMMARY | 2022-07-10 14:11 | XMS_ITS | Encounter Summary ---
:1950 Author Organization [place] Address [address] [place] [address] Care Team Providers Name Role Phone Toña Jones MD Primary Care Provider Ingrid Santana RN Unavailable Unavailable Encounter Details Date Type Department Care Team Description 01/17/2013 Results Only LABORATORY RESULTS Barbara Bradley MD [address] [place], [place] [address] Social History Tobacco Use [...] HLA Lukasz Class I Single Antigen (01/17/2013) [facility] gist Method Time Signature SA1 [...] Phon e Number [facility] Immunology/Histocompatabil [place], [place] [address] ity [facility] [address] [facility] [address] Building, Room 3-580 HISTOTRAC documented in this encounter Visit Diagnoses Not on filedocumented in this encounter Care Teams Instruction Dean Relationship Specialty Start Date End Date Toña Jones MD PCP - General Nephrology 11/25/11 01/01/14 Ingrid Santana, RN Registered Nurse Transplant 02/10/12 documented as of this encounter
--- OUTSIDE RECORDS SUMMARY | 2022-07-10 14:11 | XMS_ITS | Encounter Summary ---
:1950 Author Organization [place] Address [facility] [place] [address] Care Team Providers Name Role Phone Toña [...] - HIM SCAN - 09/25/2012 8:26 AM STOREROOM KEEPER ARCHIVE documented in this encounter Results LAB RESULT - HIM SCAN - ARCHIVE (09/25/2012 8:26 AM STOREROOM KEEPER) Specimen (Source) Anatomical Location Collection Method / Collectio n Time Received Time / Laterality Volume Narrative This result has an attachment that is no t available. Marcela Cordero MD LAB - BLOOD ORDERABLES documented in this encounter Visit Diagnoses Not on filedocumented in this encounter Care Teams Lunchroom Food Service Supervisor Relationship Specialty Start Date End Date Toña Jones MD PCP - General Nephrology 11/25/11 01/01/14 Momo Forbes PCP - General Family Practice 01/02/[address] [place] [address] Ingrid Santana, RN Registered Nurse Transplant 02/10/12 documented as of this encounter
--- OUTSIDE RECORDS SUMMARY | 2022-07-10 14:11 | XMS_ITS | Encounter Summary ---
:1950 Author Organization [place] Address [address] [place] [address] Care Team Providers Name Role Phone Toña Jones MD Primary Care Provider Ingrid Santana RN Unavailable Unavailable Encounter Details Date Type Department Care Team Description 04/13/2012 Results Only LABORATORY RESULTS Mingo Dangelo MD [address] [facility] 195 [place] [address] (Wo rk) Social History [...] HLA Lukasz Class I Single Antigen (04/13/2012) [facility] gist Method Time Signature [...] Phon e Number [facility] Immunology/Histocompatabil [place], [place] [address] ity [facility] [address] Building, Room 3-580 HISTOTRAC documented in this encounter Visit Diagnoses Not on filedocumented in this encounter Care Teams Crocheter Relationship Specialty Start Date End Date Toña Jones MD PCP - General Nephrology 11/25/11 01/01/14 Ingrid Santana, RN Registered Nurse Transplant 02/10/12 documented as of this encounter
--- OUTSIDE RECORDS SUMMARY | 2022-07-10 14:11 | XMS_ITS | Encounter Summary ---
:1950 Author Organization [place] Address [facility] [place] [address] Care Team Providers Name Role Phone Toña [...] on filedocumented in this encounter Care Teams Tester Waste Disposal Leakage Relationship Specialty Start Date End Date Toña Jones MD PCP - General Nephrology 11/25/11 01/01/14 Momo Forbes PCP - General Family Practice 01/02/[address] [place] [address] Ingrid Santana, RN Registered Nurse Transplant 02/10/12 documented as of this encounter
--- OUTSIDE RECORDS SUMMARY | 2022-07-10 14:11 | XMS_ITS | Encounter Summary ---
:1950 Author Organization [place] Address [address] [place] [address] Care Team Providers Name Role Phone Toña Jones MD Primary Care Provider Ingrid Santana RN Unavailable Unavailable Encounter Details Date Type Department Care Team Description 02/28/2013 Orders Only [facility] Molly Sanderson Organ transplant 500 [facility] candidate (Primary Dx) [place] [phone] Social History Tobacco Use Types Packs/Day Years [...] status documented in this encounter Care Teams Office Inspector Relationship Specialty Start Date End Date Toña Jones MD PCP - General Nephrology 11/25/11 01/01/14 Ingrid Santana RN Registered Nurse Transplant 02/10/12 documented as of this encounter
--- OUTSIDE RECORDS SUMMARY | 2022-07-10 14:11 | XMS_ITS | Encounter Summary ---
:1950 Author Organization [place] Address [address] [place] [address] Care Team Providers Name Role Phone Toña Jones MD Primary Care Provider Ingrid Santana RN Unavailable Unavailable Encounter Details Date Type Department Care Team Description 10/11/2012 Results Only LABORATORY RESULTS Barbara Bradley MD [address] [place], [place] [address] Social History Tobacco Use [...] HLA Lukasz Class I Single Antigen (10/11/2012) [facility] gist Method Time Signature SA1 [...] / Volume Laterality 10/11/2012 10/12/2012 1:03 PM ESCROW REPRESENTATIVE Barbara Bradley MD LAB - IMMUNOLOGY ORDERABLES Performing Organization Address City/State/ZIP Code Phon e Number [facility] Immunology/Histocompatabil [place], [place] [address] ity [facility] [address] [facility] [address] Building, Room 3-580 HISTOTRAC documented in this encounter Visit Diagnoses Not on filedocumented in this encounter Care Teams Head Irrigator Relationship Specialty Start Date End Date Toña Jones MD PCP - General Nephrology 11/25/11 01/01/14 Ingrid Santana, RN Registered Nurse Transplant 02/10/12 documented as of this encounter
--- OUTSIDE RECORDS SUMMARY | 2022-07-10 14:11 | XMS_ITS | Encounter Summary ---
:1950 Author Organization [place] Address [address] [place] [address] Care Team Providers Name Role Phone Toña Jones MD Primary Care Provider Ingrid Santana RN Unavailable Unavailable Encounter Details Date Type Department Care Team Description 04/13/2012 Results Only LABORATORY RESULTS Mingo Dangelo MD [address] [facility] 195 [place] [address] (Wo rk) Social History Tobacco [...] HLA Lukasz Class II Single Antigen (04/13/2012) [facility] gist Method Time Signature SA2 Test Single [...] Phon e Number [facility] Immunology/Histocompatabil [place], [place] [address] ity [facility] [address] Building, Room 3-580 HISTOTRAC documented in this encounter Visit Diagnoses Not on filedocumented in this encounter Care Teams Transverse Abdominal Muscle Surgeon Relationship Specialty Start Date End Date Toña Jones MD PCP - General Nephrology 11/25/11 01/01/14 Ingrid Santana, RN Registered Nurse Transplant 02/10/12 documented as of this encounter
--- OUTSIDE RECORDS SUMMARY | 2022-07-10 14:11 | XMS_ITS | Encounter Summary ---
:1950 Author Organization [place] Address [address] [place] [address] Care Team Providers Name Role Phone Toña Jones MD Primary Care Provider Ingrid Santana RN Unavailable Unavailable Encounter Details Date Type Department Care Team Description 10/11/2012 Results Only LABORATORY RESULTS Barbara Bradley MD [address] [place], [place] [address] Social History Tobacco Use [...] HLA Lukasz Class II Single Antigen (10/11/2012) [facility] gist Method Time Signature SA2 Test [...] / Volume Laterality 10/11/2012 10/12/2012 1:03 PM IRONING PLEATER [place] Suseekar Bradley MD LAB - IMMUNOLOGY ORDERABLES Performing Organization Address City/State/ZIP Code Phon e Number [facility] Immunology/Histocompatabil [place], [place] [address] ity [facility] [address] [facility] [address] Building, Room 3-580 HISTOTRAC documented in this encounter Visit Diagnoses Not on filedocumented in this encounter Care Teams Pupil Personnel Services Director Relationship Specialty Start Date End Date Toña Jones MD PCP - General Nephrology 11/25/11 01/01/14 Ingrid Santana, RN Registered Nurse Transplant 02/10/12 documented as of this encounter
--- OUTSIDE RECORDS SUMMARY | 2022-07-10 14:11 | XMS_ITS | Encounter Summary ---
:1950 Author Organization [place] Address [address] [place] [address] Care Team Providers Name Role Phone Toña Jones MD Primary Care Provider Ingrid Santana RN Unavailable Unavailable Reason for Visit (Routine) - Closed Specialty Diagnoses / Procedures Referred By Contact Refer red To Contact Cardiology Diagnoses NM STRESS LEXISCAN Procedure Notes: UNSPECIFIED ESSENTIAL HYPERTENSION,PREOPERATIVE EXAMINATION, UNSPECIFIED, Zz [facility] Electrocard Procedures RADIOLOGY 500 [place] [address] Referral ID Status Reason Start Date Expiration Date Visits Requ ested Visits Authorized [id number] Closed 02/11/2012 02/10/2013 1 1 Encounter Details Date Type Department Care Team Description 02/15/2012 Hospital Encounter [facility]Z [facility] E[facility]ROC[facility] Barbara Bradley 500 [facility] [place] [phone] [address] [place], [place] [address] Social History Tobacco Use [...] as needed Per patient on hold B qqmmrzx-B-xeose acid Take 1 capsule by mouth 0 [...] Test documented in this encounter Care Teams Millwright Relationship Specialty Start Date End Date Toña Jones MD PCP - General Nephrology 11/25/11 01/01/14 Ingrid Santana, RN Registered Nurse Transplant 02/10/12 documented as of this encounter
--- OUTSIDE RECORDS SUMMARY | 2022-07-10 14:11 | XMS_ITS | Encounter Summary ---
:1950 Author Organization [place] Address [address] [place] [address] Care Team Providers Name Role Phone Toña Jones MD Primary Care Provider Ingrid Santana RN Unavailable Unavailable Encounter Details Date Type Department Care Team Description 08/25/2012 Results Only LABORATORY RESULTS Barbara Bradley MD [address] [place], [place] [address] Social History Tobacco Use [...] AM Results f or this CROSSMATCH ALLO OCCUPATIONAL THERAPIST'S ASSISTANT procedure ar e in the results section. documented in this encounter Results HLA Flow T/B Crossmatch Allo (08/25/2012 9:49 AM OCCUPATIONAL THERAPIST'S ASSISTANT) [facility] Method Time Signature Crossmatch Donor:ABRAHAM HICKEY [...] Volume Laterality 08/25/2012 9:49 AM 3 9:06 OCCUPATIONAL THERAPIST'S ASSISTANT AM OCCUPATIONAL THERAPIST'S ASSISTANT Barbara Bradley MD LAB - IMMUNOLOGY ORDERABLES Performing Organization Address City/State/ZIP Code Phon e Number [facility] Immunology/Histocompatabil [place], [place] [address] [facility] [address] Building, Room 3-580 HISTOTRAC documented in this encounter Visit Diagnoses Not on filedocumented in this encounter Care Teams Transformer Mechanic Relationship Specialty Start Date End Date Toña Jones MD PCP - General Nephrology 11/25/11 01/01/14 Ingrid Santana RN Registered Nurse Transplant 02/10/12 documented as of this encounter
--- OUTSIDE RECORDS SUMMARY | 2022-07-10 14:11 | XMS_ITS | Encounter Summary ---
:1950 Author Organization [place] Address [facility] [place] [address] Care Team Providers Name Role Phone Toña [...] on filedocumented in this encounter Care Teams Second Cook And Baker Relationship Specialty Start Date End Date Toña Jones MD PCP - General Nephrology 11/25/11 01/01/14 Momo Forbes PCP - General Family Practice 01/02/[address] [place] [address] Ingrid Santana, RN Registered Nurse Transplant 02/10/12 documented as of this encounter
--- OUTSIDE RECORDS SUMMARY | 2022-07-10 14:11 | XMS_ITS | Encounter Summary ---
:1950 Author Organization [place] Address [address] [place] [address] Care Team Providers Name Role Phone Toña Jones MD Primary Care Provider Ingrid Santana RN Unavailable Unavailable Encounter Details Date Type Department Care Team Description 02/15/[address] [facility] Barbara Bradley Unsp ecified essential hypertension; [facility] MD Monae Pre-operative clearance [address] [place] [phone] Social History Tobacco Use Types Packs/Day [...] as needed Per patient on hold B ecvkbel-H-xhypt acid Take 1 capsule by mouth 0 [...] unspecified documented in this encounter Care Teams Bus Company Manager Relationship Specialty Start Date End Date Toña Jones MD PCP - General Nephrology 11/25/11 01/01/14 Ingrid Santana, RN Registered Nurse Transplant 02/10/12 documented as of this encounter
--- OUTSIDE RECORDS SUMMARY | 2022-07-10 14:11 | XMS_ITS | Encounter Summary ---
:1950 Author Organization [place] Address [address] [place] [address] Care Team Providers Name Role Phone Toña Jones MD Primary Care Provider Ingrid Santana RN Unavailable Unavailable Encounter Details Date Type Department Care Team Description 07/03/2012 Results Only LABORATORY RESULTS Barbara Bradley MD [address] [place], [place] [address] Social History Tobacco Use [...] HLA Lukasz Class II Single Antigen (07/03/2012) [facility] gist Method Time Signature SA2 [...] / Volume Laterality 07/03/2012 07/05/2012 1:57 PM NURSE SUBSTANCE ABUSE [place] Suseekar Bradley MD LAB - IMMUNOLOGY ORDERABLES Performing Organization Address City/State/ZIP Code Phon e Number [facility] Immunology/Histocompatabil [place], [place] [address] ity [facility] [address] [facility] [address] Building, Room 3-580 HISTOTRAC documented in this encounter Visit Diagnoses Not on filedocumented in this encounter Care Teams Printer Slotter Feeder Relationship Specialty Start Date End Date Toña Jones MD PCP - General Nephrology 11/25/11 01/01/14 Ingrid Santana, RN Registered Nurse Transplant 02/10/12 documented as of this encounter
--- OUTSIDE RECORDS SUMMARY | 2022-07-10 14:11 | XMS_ITS | Encounter Summary ---
:1950 Author Organization [place] Address [address] [place] [address] Care Team Providers Name Role Phone Toña Jones MD Primary Care Provider Ingrid Santana RN Unavailable Unavailable Encounter Details Date Type Department Care Team Description 01/17/2013 Results Only LABORATORY RESULTS Barbara Bradley MD [address] [place], [place] [address] Social History Tobacco Use [...] HLA Lukasz Class II Single Antigen (01/17/2013) [facility] gist Method Time Signature SA2 Test Single [...] Phon e Number [facility] Immunology/Histocompatabil [place], [place] [address] ity [facility] [address] [facility] [address] Building, Room 3-580 HISTOTRAC documented in this encounter Visit Diagnoses Not on filedocumented in this encounter Care Teams Shoe Repairer Helper Relationship Specialty Start Date End Date Toña Jones MD PCP - General Nephrology 11/25/11 01/01/14 Ingrid Santana RN Registered Nurse Transplant 02/10/12 documented as of this encounter
--- OUTSIDE RECORDS SUMMARY | 2022-07-10 14:11 | XMS_ITS | Encounter Summary ---
:1950 Author Organization [place] Address [facility] [place] [address] Care Team Providers Name Role Phone Toña [...] Associated Diagnosis Comme nts PATHOLOGY RESULT - [facility] 03/17/2012 8:24 AM CDT SCAN - ARCHIVE documented in this encounter Results PATHOLOGY RESULT - [facility] SCAN - ARCHIVE (03/17/2012 8:24 AM CDT) Specimen (Source) Anatomical Location Collection Method / Collectio n Time Received Time / Laterality Volume Narrative This result has an attachment that is no t available. Gich Provider LAB - COPATH SPECIAL DIAG OR DERABLES documented in this encounter Visit Diagnoses Not on filedocumented in this encounter Care Teams Industrial Maintenance Technician Relationship Specialty Start Date End Date Toña Jones MD PCP - General Nephrology 11/25/11 01/01/14 Momo Forbes PCP - General Family Practice 01/02/14 [facility] [address] [place] [address] Ingrid Santana, RN Registered Nurse Transplant 02/10/12 documented as of this encounter
--- OUTSIDE RECORDS SUMMARY | 2022-07-10 14:11 | XMS_ITS | Encounter Summary ---
:1950 Author Organization [place] Address [address] [place] [address] Care Team Providers Name Role Phone Toña Jones MD Primary Care Provider Ingrid Santana RN Unavailable Unavailable Reason for Visit (Routine) - Closed Specialty Diagnoses / Procedures Referred By Contact Refer red To Contact Radiology Diagnoses NM MPI L[place] Procedure Notes: UNSPECIFIED ESSENTIAL HYPERTENSION,PREOPERATIVE EXAMINATION, UNSPECIFIED, [facility] Nuclear Medicine Procedures RADIOLOGY [address] [place] [address] Phone: Referral ID Status Reason Start Date Expiration Date Visits Requ ested Visits Authorized [id number] Closed 02/11/2012 02/10/2013 1 1 Encounter Details Date Type Department Care Team Description 02/15/2012 Hospital Encounter [facility] Barbara Bradley Imaging MD Monae [address] [facility] [address] [place], [place] [id number] [phone] Social History Tobacco Use Types Packs/Day Years [...] as needed Per patient on hold B ieothol-M-fxlaf acid Take 1 capsule by mouth 0 02/08/2014 (NEPHROCAPS) 1 MG daily. capsule lisinopril Take 40 mg by mouth 0 02/08 (PRINIVIL,ZESTRIL) 40 daily MG tablet METOPROLOL SUCCINATE Take 100 mg by mouth 0 02/08/2014 PO daily documented as of this encounter Plan of Treatment Not on filedocumented as of this encounter Visit Diagnoses Not on filedocumented in this encounter Care Teams Melt Helper Relationship Specialty Start Date End Date Toña Jones MD PCP - General Nephrology 11/25/11 01/01/14 Ingrid Santana, RN Registered Nurse Transplant 02/10/12 documented as of this encounter
--- OUTSIDE RECORDS SUMMARY | 2022-07-10 14:11 | XMS_ITS | Encounter Summary ---
:1950 Author Organization [place] Address [facility] [place] [address] Care Team Providers Name Role Phone Toña [...] HLA Lukasz Class II Single Antigen (04/16/2013) [facility] gist Method Time Signature SA2 [...] Phon e Number [facility] LABORATORY Immunology/Histocompatabil [place], [place] [address] ity [facility] [address], Room 3-580 HISTOTRAC documented in this encounter Visit Diagnoses Not on filedocumented in this encounter Care Teams Kindergarten Teacher Relationship Specialty Start Date End Date Toña Jones MD PCP - General Nephrology 11/25/11 01/01/14 Ingrid Santana, RN Registered Nurse Transplant 02/10/12 documented as of this encounter
--- OUTSIDE RECORDS SUMMARY | 2022-07-10 14:11 | XMS_ITS | Encounter Summary ---
:1950 Author Organization [place] Address [address] [place] [address] Care Team Providers Name Role Phone Toña Jones MD Primary Care Provider Ingrid Santana RN Unavailable Unavailable Reason for Visit (Routine) - Closed Specialty Diagnoses / Procedures Referred By Contact Refer red To Contact Radiology Diagnoses NM MPI SCAN Procedure Notes: UNSPECIFIED ESSENTIAL HYPERTENSION,PREOPERATIVE EXAMINATION, UNSPECIFIED, [facility] Nuclear Medicine Procedures RADIOLOGY [address] [place] [address] Phone: Referral ID Status Reason Start Date Expiration Date Visits Requ ested Visits Authorized [id number] Closed 02/11/2012 02/10/2013 1 1 Encounter Details Date Type Department Care Team Description 02/15/2012 Hospital Encounter [facility] Barbara Bradley ESRD (end stage [facility] Imaging MD Monae renal disease) (H) [address] [facility] [address] [place] [address] Social History Tobacco Use [...] as needed Per patient on hold B fozxefh-P-jgzpx acid Take 1 capsule by mouth 0 [...] disease documented in this encounter Care Teams Insurance Underwriter Sales Relationship Specialty Start Date End Date Toña Jones MD PCP - General Nephrology 11/25/11 01/01/14 Ingrid Santana RN Registered Nurse Transplant 02/10/12 documented as of this encounter
--- OUTSIDE RECORDS SUMMARY | 2022-07-10 14:11 | XMS_ITS | Encounter Summary ---
:1950 Author Organization [place] Address [facility] [place] [address] Care Team Providers Name Role Phone Toña [...] filedocumented in this encounter Care Teams Performance Solutions Specialist Relationship Specialty Start Date End Date Toña Jones MD PCP - General Nephrology 11/25/11 01/01/14 Momo Forbes PCP - General Family Practice 01/02/[address] [place] [address] Ingrid Santana, RN Registered Nurse Transplant 02/10/12 documented as of this encounter
--- OUTSIDE RECORDS SUMMARY | 2022-07-10 14:11 | XMS_ITS | Encounter Summary ---
:1950 Author Organization [place] Address [address] [place] [address] Care Team Providers Name Role Phone Toña Jones MD Primary Care Provider Ingrid Santana RN Unavailable Unavailable Encounter Details Date Type Department Care Team Description 07/03/2012 Results Only LABORATORY RESULTS Barbara Bradley MD [address] [place], [place] [address] Social History Tobacco Use [...] HLA Lukasz Class I Single Antigen (07/03/2012) [facility] gist Method Time Signature SA1 [...] / Volume Laterality 07/03/2012 07/05/2012 1:57 PM [facility] WORKER Barbara Bradley MD LAB - IMMUNOLOGY ORDERABLES Performing Organization Address City/State/ZIP Code Phon e Number [facility] Immunology/Histocompatabil [place], [place] [address] [facility] [address] [facility] [address] Building, Room 3-580 HISTOTRAC documented in this encounter Visit Diagnoses Not on filedocumented in this encounter Care Teams Welfare Eligibility Interviewer Relationship Specialty Start Date End Date Toña Jones MD PCP - General Nephrology 11/25/11 01/01/14 Ingrid Santana, RN Registered Nurse Transplant 02/10/12 documented as of this encounter
--- OUTSIDE RECORDS SUMMARY | 2022-07-10 14:12 | XMS_ITS | Encounter Summary ---
:1950 Author Organization [place] Address [address] [facility] [place] [address] Care Team Providers Name Role Phone Toña Jones MD Primary Care Provider Ingrid Santana RN Unavailable Unavailable Reason for Visit Reason Comments Transplant Evaluation kidney Encounter Details Date Type Department Care Team Description 02/10/2012 Office Visit Nephrology Darian Joshi MD [address] [facility] [address] [place], [place] [id number] Pre-transplant 2nd Floor, Clinic 2A Joseph Quintana MD [address] [facility] [address] [facility] [address] [place], [place] [address] evaluation for Sanders Mimaalyssa chronic kidney Building disease (Primary Dx) [address] [place] [phone] Social History Tobacco Use Types Packs/Day Years [...] Dialysis Type: [facility] HD; and Dialysis unit: [facility] Primary Exchange Trouble Shooter: Dr. 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 Yes Reported, Patient B vjawkoo-E-pgijb acid (NEPHROCAPS) 1 MG capsule Take 1 [...] NEG Ketones Urine Negative NEG (mg/dL) Specific [place] Urine 1.010 1.003 - 1.035 Blood Urine [...] Report Value: Patient Name: ELINOR GUTHRIE MR#: [id number] Specimen #: [id number] Collected: 02/08/2012 07:07 Received: 02/08/2012 09:00 Reported: 02/11/2012 14:03 Ordering Phy(s): DARIAN JOSHI TEST(S) REQUESTED: A: Factor 5 Leiden and Factor 2 by PCR B: DNA Isolation, High purity extraction SPECIMEN DESCRIPTION: Blood METHODOLOGY: The regions of genomic DNA containing the [id number] Factor 5 gene mutation (Factor V Leiden) and the Factor 2(Prothrombin [id number]) gene mutation were simultaneously amplified using the polymerase chain reaction. The amplified products were digested with restriction endonuclease TaqI and products were analyzed by gel electrophoresis. RESULTS: FACTOR 5-LEIDEN RESULTS: Mutation analyzed: 1691G>A Factor 5 Mutation Interpretation: ABSENT Factor 5 Mutation genotype: G/G FACTOR 2/PROTHROMBIN RESULTS: Mutation analyzed: 62503K>A Factor 2 Mutation Interpretation: ABSENT Factor 2 Mutation genotype: G/G INTERPRETATION: The patient is negative for the Factor 5 mutation and negative for the Factor 2 mutation. This test was developed and its performance determined by the [facility] acute hospital [facility]. It has not been cleared or approved by the U.S. Food and Drug Administration. The FDA has determined that such clearance or approval is not necessary. Pursuant to the requirements of CLIA'88, this laboratory has established and verified the test's accuracy and precision. This test is used for clinical purposes. Electronically Signed Out By: Liliya Stone MD TESTING LAB LOCATION: [address] [address] COLLECTION SITE: Client: General acute hospital Location: [facility] () HLA LUKASZ CLASS I [...] of an antiphospholipid syndrome, recommend anticardiolipin and lypu-3-eghuoxysibxz (IgG and IgM) antibody tests. Dee Duenas M.D. [phone] 02-09-2012. APTT'S: Seconds Reagent = Stago LS [...] Range Ventricular Rate 60 Atrial Rate 60 IA Interval 186 QRS Duration 104 QT 440 QTc 440 P [place] 36 R AXIS 0 T [place] 36 Interpretation ECG Sinus rhythm Interpretation ECG [...] Function Test Value: Name: ELINOR GUTHRIE ID: [id number] Doctor: DONYA THOMAS Height: 72.00 in Age: [...] INTERPRETATION: The FVC, FEV1, FEV1/FVC ratio and BAX88-23% are within normal limits. The inspiratory flow [...] n documented in this encounter Care Teams Tin Pourer Relationship Specialty Start Date End Date Toña Jones MD PCP - General Nephrology 11/25/11 01/01/14 Ingrid Santana, RN Registered Nurse Transplant 02/10/12 documented as of this encounter
--- OUTSIDE RECORDS SUMMARY | 2022-07-10 14:12 | XMS_ITS | Encounter Summary ---
:1950 Author Organization [place] Address [address] [place] [address] Care Team Providers Name Role Phone Toña Jones MD Primary Care Provider Ingrid Santana RN Unavailable Unavailable Encounter Details Date Type Department Care Team Description 02/08/2012 Orders Only [facility] Jesus Cardenas Di abetes mellitus, type 2 (H); [facility] Gordo oneal MD End stage renal disease (H); [address] [place] [address] Social History Tobacco Use Types Packs/Day Years [...] ABO type (02/08/2012 1:52 PM CDT) [facility] Method Time Signature ABO A [facility] RH(D) Pos [facility] Specimen 02/11/2012 [facility] Expires [facility] Specimen Anatomical Collection Method Collection Time Receive d Time (Source) Location / / Volume Laterality Blood specimen 02/08/2012 1:52 PM 012 1:54 (specimen) CDT PM CDT Chucho Joshi MD LAB - BLOOD BANK TEST ORDER Performing Organization Address City/State/ZIP Code Phon e Number [id number] [place] [address] LABS EKG 12-lead, tracing only (02/08/2012 7:30 AM CDT) [facility] Method Time Signature Ventricular Rate 60 BPM RADIOLOGY RESULTS Atrial Rate 60 BPM RADIOLOGY RESULTS MT Interval 186 ms RADIOLOGY RESULTS QRS Duration 104 ms RADIOLOGY RESULTS QT 440 ms RADIOLOGY RESULTS QTc 440 ms RADIOLOGY RESULTS P [place] 36 degrees RADIOLOGY RESULTS R AXIS 0 degrees RADIOLOGY RESULTS T [place] 36 degrees RADIOLOGY RESULTS Interpretation Sinus rhythm [...] DEFINED documented in this encounter Care Teams Oil Gauger Relationship Specialty Start Date End Date Toña Jones MD PCP - General Nephrology 11/25/11 01/01/14 Ingrid Santana, RN Registered Nurse Transplant 02/10/12 documented as of this encounter
--- OUTSIDE RECORDS SUMMARY | 2022-07-10 14:12 | XMS_ITS | Encounter Summary ---
:1950 Author Organization [place] Address [address] [place] [address] Care Team Providers Name Role Phone Toña Jones MD Primary Care Provider Ingrid Santana RN Unavailable Unavailable Encounter Details Date Type Department Care Team Description 02/08/2012 Results Only LABORATORY RESULTS Jeff Joshi MD [address] [place] [address] (Wo rk) Social History Tobacco [...] Single Antigen (02/08/2012 7:07 AM CDT) [facility] gist Method Time Signature SA1 [...] Phon e Number [facility] Immunology/Histocompatabil [place], [place] [address] [facility] [address], Room 3-580 HISTOTRAC documented in this encounter Visit Diagnoses Not on filedocumented in this encounter Care Teams Call Or Contact Centre Operator Relationship Specialty Start Date End Date Toña Jones MD PCP - General Nephrology 11/25/11 01/01/14 Ingrid Santana, RN Registered Nurse Transplant 02/10/12 documented as of this encounter
--- OUTSIDE RECORDS SUMMARY | 2022-07-10 14:12 | XMS_ITS | Encounter Summary ---
:1950 Author Organization [place] Address [facility] [address] Care Team Providers Name Role Phone Toña Jones MD Primary Care Provider Reason for Visit Reason Comments Transplant Evaluation Kidney transplant evaluation - Diabetes, End Stage Renal Disease Encounter Details Date Type Department Care Team Description 02/08/2012 Office Visit The Transplant Edda Cardenas, Ty Blink, DM (diabetes 2nd Floor, Clinic 2A MD mellitus), type 2 (H) Tommy Wilburn (Primar y Dx) [address] [phone] Social History Tobacco Use Types Packs/Day Years [...] uncontrolled documented in this encounter Care Teams Public Affairs Manager Relationship Specialty Start Date End Date Toña Jones MD PCP - General Nephrology 11/25/11 01/01/14 documented as of this encounter
--- OUTSIDE RECORDS SUMMARY | 2022-07-10 14:12 | XMS_ITS | Encounter Summary ---
:1950 Author Organization [place] Address [address] [facility] [place] [address] Care Team Providers Name Role Phone Toña Jones MD Primary Care Provider Blayne Santana RN Unavailable Unavailable Reason for Visit Reason Comments Transplant Evaluation Encounter Details Date Type Department Care Team Description 02/08/2012 Office Visit Transplant Surgery Jesus Cardenas, DM (di abetes mellitus), type 2 (H); Clinic End stage renal disease (H) 2nd Floor, Clinic [address] [phone] Social History Tobacco Use Types Packs/Day Years [...] from the original note were not included. 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 Smoking status: [...] Take 1 tablet by mouth daily. B pxxpbet-K-vmdxt acid (NEPHROCAPS) 1 MG capsule Take 1 [...] Test 02/08/12 0725 INR 1.11 F2MAR -- [id number] -- Lipid Profile: Cholesterol Date Value Range [...] 09, 2012 3:21 PM Pre Abdominal Organ Golf Tournament Consultant Evaluation Note: present: Dr. Jesus Cardenas Attendees: self Type of transplant: kidney Required Topic(s) Discussed: Evaluation notification document, SRTR data, Multiple wait list brochure, MANAGER NEONATAL, Evaluation/approval process, Selection committee process, Wait list [...] spent with patient: 15 minutes -- Nurse Golf Tournament Consultant Pager [phone] BLAYNE SANTANA -- Nurse Golf Tournament Consultant Pager [phone] >> Lena Sánchez RN santino Feb 08, [...] disease documented in this encounter Care Teams Change Management Administrator Relationship Specialty Start Date End Date Toña Jones MD PCP - General Nephrology 11/25/11 01/01/14 Blayne Santana, RN Registered Nurse Transplant 02/10/12 documented as of this encounter
--- OUTSIDE RECORDS SUMMARY | 2022-07-10 14:12 | XMS_ITS | Encounter Summary ---
:1950 Author Organization [place] Address [address] [place] [address] Care Team Providers Name Role Phone Toña Jones MD Primary Care Provider Encounter Details Date Type Department Care Team Description 02/08/2012 [facility] Jesus Gamboa MD Diabetes mellitus, type 2 (H ); Health/Nurse 2nd Floor, Clinic 2A Coordinator, [facility] Care End stage renal disease (H) Visit [address] [place] [id number] Social History Tobacco Use Types Packs/Day Years [...] Priority Associated Diagnoses Date/Ti me F2 prothrombin 10213F Mut Lab Routine Diabetes mellit us, type [...] Routine 02/08/2012 7:25 AM Diabetes melli tus, 23633A MUT ANAL CDT type 2 (H) End [...] Tuberculosis by Quantiferon (02/08/2012 7:26 AM CDT) [facility] Method Time Signature M Tuberculosis Negative NEG [facility] Result [facility] M Tuberculosis 0.01 IU/mL [facility] Antigen Value [facility] Comment: This is a qualitative test. [...] LAB - BLOOD ORDERABLES Performing Organization Address City/[facility] Phon e Number [address] LABS Antibody titer red cell (02/08/2012 7:26 AM CDT) [facility] Method [place] Signature Antibody Titer Anti B [facility] titer IgM: [place] 4 Ig [place] [facility] Specimen Anatomical Collection Method Collection Time Receive d Time (Source) Location / / Volume Laterality Blood specimen 02/08/2012 7:26 AM 012 7:31 (specimen) CDT AM CDT Darian Joshi MD LAB - BLOOD BANK TEST ORDER Performing Organization Address [facility] Phon e Number [address] LABS Prostate spec antigen screen (02/08/2012 7:25 AM CDT) athologist Signature PSA 0.44 0 - 4 ug/L [facility] Comment: PSA results are [...] Phon e Number [facility] [address] LABS Hemoglobin A1c (02/08/2012 7:25 AM CDT) athologist Signature Hemoglobin A1C 5.3 4.3 - 6.0 [facility] LABS Specimen Anatomical Collection Method Collection Time Receive d Time (Source) Location / / Volume Laterality Blood specimen 02/08/2012 7:25 AM 012 7:30 (specimen) CDT AM CDT Darian Joshi MD LAB - BLOOD ORDERABLES Performing Organization Address City/State/ZIP Code Phon e Number [facility] [address] LABS C-peptide (02/08/2012 7:25 AM CDT) athologist Signature C Peptide 5.3 0.9 - 6.9 [facility] ng/mL [place] [facility] Specimen Anatomical Collection Method Collection Time Receive d Time (Source) Location / / Volume Laterality Blood specimen 02/08/2012 7:25 AM 012 7:30 (specimen) CDT AM CDT Darian Joshi MD LAB - BLOOD ORDERABLES Performing Organization Address City/[facility]/ZIP Code Phon e Number [address] LABS Cardiolipin antibody IgG and IgM (02/08/2012 7:25 AM CDT) [facility] gist Method Time Signature Cardiolipin IgG <15.0 0 - 15.0 [facility] Shaye Interpretation: ??Negative GPL [facility] [...] Phon e Number [facility] [address] [place] [address] [place] [facility] LAB[facility] (ABNORMAL) Comprehensive metabolic panel (02/08/2012 7:25 AM CDT) [facility] gist Method Time Signature Sodium 143 133 - 144 [facility] mmol/L [facility] Potassium 4.4 3.4 - 5.3 [facility] mmol/L [facility] Chloride 106 94 - 109 [facility] mmol/L [facility] Carbon Dioxide 24 20 - 32 [facility] mmol/L [facility] Anion Gap 13 6 - 17 [facility] mmol/L [facility] Glucose 126 (H) 60 - 99 [facility] mg/dL [facility] Urea Nitrogen 32 (H) 7 - 30 [facility] mg/dL [facility] Creatinine 5.46 (H) 0.66 - [facility] 1.25 [facility]ITY mg/dL CAMPUS LABS GFR Estimate 11 (L) >60 [facility] mL/min/1. [address] LABS GFR Estimate If 13 (L) >60 [facility] Black mL/min/1. [address] LABS Calcium 8.5 8.5 - [facility] 10.4 UNIVERSITY mg/dL CAMPUS LABS Bilirubin Total 0.8 0.2 - 1.3 [facility] mg/dL [facility] Albumin 3.8 3.3 - 4.9 [facility] g/dL [facility] Protein Total 6.8 6.8 - 8.8 [facility] g/dL [facility] Alkaline 92 40 - 150 [facility] Phosphatase U/L [facility]S ALT 13 0 - 70 [facility] U/L [facility] AST 18 0 - 45 [facility] U/L [facility] Specimen Anatomical Collection Method Collection Time Receive d Time (Source) Location / / Volume Laterality Blood specimen 02/08/2012 7:25 AM 012 7:30 (specimen) CDT AM CDT Darian Joshi MD LAB - BLOOD ORDERABLES Performing Organization Address City/[facility]/ZIP Code Phon e Number [facility] [address] [place] [address] [facility] Lipid Profile (02/08/2012 7:25 AM CDT) P athologist Signature Cholesterol 134 0 - 200 [facility] mg/dL CAMPUS LABS Comment: LDL Cholesterol is the primary guide to therapy. The NCEP recommends further evaluation of: patients with cholesterol greater than 200 mg/dL if additional risk facto rs are present, cholesterol greater than 240 mg/dL, triglycerides greater than 1 50 mg/dL, or HDL less than 40 mg/dL. Triglycerides 74 0 - 150 mg/dL [facility] LABS HDL Cholesterol 42 40 - 110 mg/dL [facility] LDL Cholesterol Calculated 77 0 - 129 mg/dL [facility] LABS Comment: LDL Cholesterol is the primary guide to therapy: LDL-cholesterol goal in high risk patients is <100 mg/dL and in very high risk patients is <70 mg/dL. VLDL-Cholesterol 15 0 - 30 mg/dL [facility] LABS Cholesterol/HDL Ratio 3.2 0.0 - 5.0 [facility] Specimen Anatomical Collection Method Collection Time Receive d Time (Source) Location / / Volume Laterality Blood specimen 02/08/2012 7:25 AM 012 7:30 (specimen) CDT AM CDT Darian Joshi MD LAB - BLOOD ORDERABLES Performing Organization Address City/[facility]/ZIP Code Phon e Number [facility] [address] [place] [address] [facility] ABO/Rh type and screen (02/08/2012 7:25 AM CDT) Patholo gist Method Time Signature ABO A [facility] RH(D) Pos [facility] Antibody Neg [facility] Screen [facility] Specimen 02/11/2012 [facility] Expires [facility] Specimen Anatomical Collection Method Collection Time Receive d Time (Source) Location / / Volume Laterality Blood specimen 02/08/2012 7:25 AM 012 7:30 (specimen) CDT AM CDT Darian Joshi MD LAB - BLOOD BANK TEST ORDER Performing Organization Address City/State/ZIP Code Phon e Number [facility] [address] [place] [address] [facility] Varicella zoster antibody IgG (02/08/2012 7:25 AM CDT) Patholo gist Method Time Signature Varicella 1023.00 [facility] Zoster IgG [facility] Immune Status CAMP[facility] LABS Ratio Vari Zoster Positive, [facility] IgG Interp suggests [facility] prev. CAMPUS LABS exposure and probable immunity Specimen Anatomical Collection Method Collection Time Receive d Time (Source) Location / / Volume Laterality Blood specimen 02/08/2012 7:25 AM 012 7:30 (specimen) CDT AM CDT Darian Joshi MD LAB - BLOOD ORDERABLES Performing Organization Address City/State/ZIP Code Phon e Number [facility] [address] [place], [place] [phone] [place] [address] LABS Anti treponema EIA (02/08/2012 7:25 AM CDT) Analysis Performed At Patho logist Time Signature Treponema Negative NEG [facility] Antibody [place] [facility] Specimen Anatomical Collection Method Collection Time Receive d Time (Source) Location / / Volume Laterality Blood specimen 02/08/2012 7:25 AM 012 7:30 (specimen) CDT AM CDT Darian Joshi MD LAB - BLOOD ORDERABLES Performing Organization Address City/State/ZIP Code Phon e Number [facility] 500 [place], [place] [phone] [place] [address] LABS HIV 1 and 2 Antibody (02/08/2012 7:25 AM CDT) Analysis Performed At Patho logist Time Signature HIV 1&2 Negative NEG [facility] Antibody [facility] Specimen Anatomical Collection Method Collection Time Receive d Time (Source) Location / / Volume Laterality Blood specimen 02/08/2012 7:25 AM 012 7:30 (specimen) CDT AM CDT Darian Joshi MD LAB - BLOOD ORDERABLES Performing Organization Address City/State/ZIP Code Phon e Number [facility] [address] [place], [place] [phone] [place] [address] LABS Hepatitis C antibody (02/08/2012 7:25 AM CDT) Analysis Performed At Patho logist Time Signature Hepatitis C Negative NEG [facility] Antibody [facility] Specimen Anatomical Collection Method Collection Time Receive d Time (Source) Location / / Volume Laterality Blood specimen 02/08/2012 7:25 AM 012 7:30 (specimen) CDT AM CDT Darian Joshi MD LAB - BLOOD ORDERABLES Performing Organization Address City/[facility]/ZIP Code Phon e Number [address] LABS Hepatitis B surface antigen (02/08/2012 7:25 AM CDT) Analysis Performed At Patho logist Time Signature Hep B Surface Negative NEG [facility] Agn [facility] Specimen Anatomical Collection Method Collection Time Receive d Time (Source) Location / / Volume Laterality Blood specimen 02/08/2012 7:25 AM 012 7:30 (specimen) CDT AM CDT Darian Joshi MD LAB - BLOOD ORDERABLES Performing Organization Address City/[facility]/ZIP Code Phon e Number [address] LABS Hepatitis B surface antibody (02/08/2012 7:25 AM CDT) P athologist Signature Hep B Surface 135.0 [facility] LABS Comment: Positive, Patient is considered [...] LAB - BLOOD ORDERABLES Performing Organization Address City/[facility]/ZIP Code Phon e Number [address] LABS Hepatitis B core antibody (02/08/2012 7:25 AM CDT) Analysis Performed At Patho logist Time Signature Hepatitis B Negative NEG [facility] LABS Specimen Anatomical Collection Method Collection Time Receive d Time (Source) Location / / Volume Laterality Blood specimen 02/08/2012 7:25 AM 012 7:30 (specimen) CDT AM CDT Darian Joshi MD LAB - BLOOD ORDERABLES Performing Organization Address City/[facility]/ZIP Code Phon e Number [facility] [address] [place], [place] [phone] [place] [address] LABS EBV VCA IgG Antibody (02/08/2012 7:25 AM CDT) athologist Signature EBV VCA IgG 188.00 U/mL [facility] Antibody [place] [facility] Comment: Positive, suggests immunologic exposure. Specimen Anatomical Collection Method Collection Time Receive d Time (Source) Location / / Volume Laterality Blood specimen 02/08/2012 7:25 AM 012 7:30 (specimen) CDT AM CDT Darian Joshi MD LAB - BLOOD ORDERABLES Performing Organization Address City/[facility]/ZIP Code Phon e Number [address] [address] [facility] CMV IGG ANTIBODY (02/08/2012 7:25 AM CDT) athologist Signature CMV IgG 3.30 U/mL [facility] Antibody [place] [facility] Comment: Positive for anti-CMV IgG Specimen Anatomical Collection Method Collection Time Receive d Time (Source) Location / / Volume Laterality Blood specimen 02/08/2012 7:25 AM 012 7:30 (specimen) CDT AM CDT Darian Joshi MD LAB - BLOOD ORDERABLES Performing Organization Address City/[facility]/ZIP Code Phon e Number [address] [address] [facility] Immunology recipient: SOT HLA Workup (ABC,DR,DQ,PRA,Crossmatch) (02/08/2012 7:25 AM CDT) [facility] gist Method Time Signature Immunology SOT HLA WORKUP [facility] Test Name [facility] Immunology Specimen [facility] Result received - [facility] LABS report to follow upon completion. Specimen Anatomical Collection Method Collection Time Receive d Time (Source) Location / / Volume Laterality Blood specimen 02/08/2012 7:25 AM 012 7:30 (specimen) CDT AM CDT Darian Joshi MD LAB - IMMUNOLOGY ORDERABLES Performing Organization Address City/State/ZIP Code Phon e Number [address] [place] [address] [place] [facility] ([facility] CBC with platelets differential (02/08/2012 7:25 AM CDT) [facility] gist Method Time Signature WBC 6.3 4.0 - [facility] 11.0 [place] 10e9/L [place] [facility] RBC Count 3.97 (L) 4.4 - 5.9 [facility] 10e12/L [facility] Hemoglobin 12.0 (L) 13.3 - [facility] 17.7 g/dL [facility] Hematocrit 36.3 (L) 40.0 - [facility] 53.0 % [facility] MCV 91 78 - 100 [facility] fl [facility] MCH 30.2 26.5 - [facility] 33.0 pg [facility] MCHC 33.1 31.5 - [facility] 36.5 g/dL [facility] RDW 15.3 (H) 10.0 - [facility] 15.0 % [facility] Platelet Count 144 (L) 150 - 450 [facility] 10e9/L [facility] Diff Method Automated [facility] Method [facility] % Neutrophils 57.7 40 - 75 % [facility] LAB[facility] % Lymphocytes 27.7 20 - 48 % [facility] % Monocytes 8.2 0 - 12 % [facility] % Eosinophils 6.1 (H) 0 - 6 % [facility] % Basophils 0.3 0 - 2 % [facility] LAB[facility] % Immature 0.0 0 - 0.4 % [facility] Granulocytes [facility] Absolute 3.6 1.6 - 8.3 [facility] Neutrophil 10e9/L [facility] Absolute 1.7 0.8 - 5.3 [facility] Lymphocytes 10e9/L [facility] Absolute 0.5 0.0 - 1.3 [facility] Monocytes 10e9/L [facility] Absolute 0.4 0.0 - 0.7 [facility] Eosinophils 10e9/L [facility] Absolute 0.0 0.0 - 0.2 [facility] Basophils 10e9/L [facility] Abs Immature 0.0 0 - 0.03 [facility] Granulocytes 10e9/L [facility] Specimen Anatomical Collection Method Collection Time Receive d Time (Source) Location / / Volume Laterality Blood specimen 02/08/2012 7:25 AM 012 7:30 (specimen) CDT AM CDT Darian Joshi MD LAB - BLOOD ORDERABLES Performing Organization Address City/[facility]/ZIP Code Phon e Number [facility] [address] LABS Lupus panel (02/08/2012 7:25 AM CDT) Component Value Ref Test Analysis Performed At Patholo gist Range Method Time Signature Lupus Result Negative NEG [facility] (Note) [place] COMMENTS: [place] [facility] The INR is normal. APTT is normal. ??1:2 Mix is not indicated. DRVVT Screen is normal. Thrombin time is normal. NEGATIVE TEST; A LUPUS ANTICOAGULANT WAS NOT DETECTED IN THI S SPECIMEN WITHIN THE LIMITS OF THE TESTING REPERTOIRE. If the clinical picture is strongly suggestive of an antipho spholipid syndrome, recommend anticardiolipin and [id number] (IgG and IgM) antibody tests. Dee Duenas M.D. ??[phone] 02-09-2012. APTT'S: ?? Seconds Reagent = Stago [...] LAB - BLOOD ORDERABLES Performing Organization Address City/[facility]/ZIP Code Phon e Number [facility] [address] LABS Thrombin time (02/08/2012 7:25 AM CDT) athologist Signature Thrombin Time 16.7 13.0 - [facility] 19.0 sec CAMPUS LABS Specimen Anatomical Collection Method Collection Time Receive d Time (Source) Location / / Volume Laterality Blood specimen 02/08/2012 7:25 AM 012 7:30 (specimen) CDT AM CDT Darian Joshi MD LAB - BLOOD ORDERABLES Performing Organization Address City/[facility]/ZIP Code Phon e Number [facility] [address] [place], [place] [phone] [place] [address] LABS Partial thromboplastin time (02/08/2012 7:25 AM CDT) P athologist Signature PTT 29 22 - 37 sec [facility] LABS Specimen Anatomical Collection Method Collection Time Receive d Time (Source) Location / / Volume Laterality Blood specimen 02/08/2012 7:25 AM 012 7:30 (specimen) CDT AM CDT Darian Joshi MD LAB - BLOOD ORDERABLES Performing Organization Address City/[facility]/ZIP Code Phon e Number [address] LABS INR (02/08/2012 7:25 AM CDT) P athologist Signature INR 1.11 0.86 - 1.14 [facility] LABS Specimen Anatomical Collection Method Collection Time Receive d Time (Source) Location / / Volume Laterality Blood specimen 02/08/2012 7:25 AM 012 7:30 (specimen) CDT AM CDT Darian Joshi MD LAB - BLOOD ORDERABLES Performing Organization Address City/State/ZIP Code Phon e Number [phone] [place] [address] LABS Factor 2 and 5 mutation analysis (02/08/2012 7:07 AM CDT) Component Value Ref Test Analysis Performed At [facility] gist Range Method Time Signature Copath Report Patient Name: ELINOR GUTHRIE MR#: [id number] Specimen #: [id number] Collected: 02/08/2012 07:07 Received: 02/08/2012 09:00 Reported: 02/11/2012 14:03 Ordering Phy(s): DARIAN JOSHI TEST(S) REQUESTED: A: Factor 5 Leiden and Factor 2 by PCR B: DNA Isolation, High purity extraction SPECIMEN DESCRIPTION: Blood METHODOLOGY: ?? The regions of genomic DNA containing the G1 691A Factor 5 gene mutation (Factor V Leiden) and the Factor 2(Prothrombin [id number]) gene mutation were simultaneously amplified using the iHydroRune Fancye chain reaction. ??The amplified products were digested with restri ction endonuclease TaqI and products were analyzed by gel electrop horesis. RESULTS: FACTOR 5-LEIDEN RESULTS: Mutation analyzed: ? 1691G>A Factor 5 Mutation Interpretation: ?ABSENT Factor 5 Mutation genotype: ?G/G FACTOR 2/PROTHROMBIN RESULTS: Mutation analyzed: ? [id number] Factor 2 Mutation Interpretation: ?ABSENT Factor 2 Mutation genotype: ?G/G INTERPRETATION: The patient is negative for the Factor 5 mutation and negati ve for the Factor 2 mutation. This test was developed and its performance determined by [facility] ??Molecular Diagnostic Laboratory. It has [...] By: Liliya Stone MD TESTING LAB LOCATION: [place] [id number] [facility] [address] [place] [id number] COLLECTION SITE: Client: ??[facility] Location: ??UUTXO (B) Specimen Anatomical Collection Method Collection Time Receive d Time (Source) Location / / Volume Laterality 02/08/2012 7:07 AM 2 9:00 CDT AM CDT Provider Unknown LAB - GENOMICS Performing Organization Address City/State/ZIP Code Phon e Number [facility] (ABNORMAL) Routine UA with microscopic (02/08/2012 7:06 AM CDT) Component Value Ref Test Analysis Performed At [facility] gist Range Method Time Signature Color Urine Light Yellow [facility] [place] [facility] Appearance Urine Clear [facility] Glucose Urine 300 (A) NEG [facility] mg/dL [facility] Bilirubin Urine Negative NEG [facility] Ketones Urine Negative NEG [facility] mg/dL [facility] Specific [place] 1.010 1.003 - [facility] Urine 1.035 [facility] Blood Urine Negative NEG [facility] pH Urine 7.5 (H) 5.0 - [facility] 7.0 pH [facility] LAB[facility] Protein Albumin 300 (A) NEG [facility] Urine mg/dL [facility] Urobilinogen Normal 0.0 - [facility] mg/dL 2.0 [facility] mg/dL [facility] LABS Nitrite Urine Negative NEG [facility] Leukocyte Negative NEG [facility] Esterase Urine [facility] [place] [facility] Source Unspecified [facility] Urine [facility] WBC Urine 1 0 - 2 [facility] /HPF [facility] [place] [facility] RBC Urine <1 0 - 2 [facility] /HPF [facility] Hyaline Casts 3 (H) 0 - 2 [facility] /LPF [facility] [place] [facility] Specimen Anatomical Collection Method Collection Time Receive d Time (Source) Location / / Volume Laterality Urine specimen 02/08/2012 7:06 AM 012 7:08 (specimen) CDT AM CDT Darian Joshi MD LAB - URINE ORDERABLES Performing Organization Address City/State/ZIP Code Phon e Number [facility] [address] [facility] documented in this encounter Visit Diagnoses Diagnosis Diabetes mellitus, type 2 (H) Type II or unspecified type diabetes aung litus without mention of complication, not stated as uncontrolled End stage renal disease (H) End stage renal disease documented in this encounter Care Teams Dredge Operator Supervisor Relationship Specialty Start Date End Date Toña Jones MD PCP - General Nephrology 11/25/11 01/01/14 documented as of this encounter
--- OUTSIDE RECORDS SUMMARY | 2022-07-10 14:12 | XMS_ITS | Encounter Summary ---
:1950 Author Organization [place] Address [address] [place] [address] Care Team Providers Name Role Phone Toña [...] Heart [address] [place] [address] Building [phone] 4th Floor, Clinic 4B (Work) [address] [address] Social History Tobacco Use [...] Stay Well and Call Maribel Nicole RN [phone] with any questions or concerns. You are scheduled for an Adenosine Stress Test 02/15/2012: Please check into the [facility] [place] Waiting Room at 12:15pm for this test. [...] and you need to reschedule, please call [phone]. January 2012Tuesday 1 2 3 4 5 6 7 8 9 10 11 12 13 14 15 16 17 18 19 [facility] NEW 6:30 AM (30 min.) Evaluation, [facility] The Transplant [facility] FULL PULMONARY FUNCTION 8:00 AM (60 min.) 2, [facility] Pfl [place] Pulmonary Function Laboratory RADIOLOGY 8:05 AM (10 min.) Uicxr2 [facility] Diagnostic Imaging [facility] PREP KIDNEY/PANCREAS TX 9:00 AM (120 min.) Angela Lopez RN [facility], Patient Learning Center [facility] TRANSPLANT CLASS KIDNEY 9:00 AM (90 min.) Class, [facility] Transplant The Transplant Center [facility] COOLER SERVICER 11:00 AM (30 min.) Coordinator, [facility] Care [facility] Transplant [facility] PRE-TX KIDNEY EVAL 11:00 AM (30 min.) Jesus Thomas MD Transplant Surgery LAB 11:30 AM (15 min.) Pwb, Op Lab [facility], Lab RADIOLOGY 1:30 PM (55 min.) Uecvc1 [facility], Echocardiography 20 21 [facility] RETURN 7:00 AM (15 min.) Evaluation, [facility] The Transplant Center RADIOLOGY 7:00 AM (60 min.) Uicusr2 [facility] Diagnostic Imaging CONSULT HOD 8:00 AM (60 min.) Martina Mcneill RD [facility], [place], Nutrition Services [facility] TX SOCIAL WORK 9:00 AM (60 min.) 2, [facility] Tx Consult Room The Transplant Center [facility] PRE-TX KIDNEY EVAL 10:00 AM (60 min.) oJseph Quintana MD Nephrology [facility] PANCREAS-KIDNEY TX W/U 11:30 AM (30 min.) Barbara Bradley MD [facility] Heart 22 23 24 25 26 RADIOLOGY 12:30 PM (15 min.) Uninj [facility], Nuclear Medicine RADIOLOGY 1:15 PM (20 min.) Unr1 [facility], Nuclear Medicine RADIOLOGY 1:40 PM (30 min.) [facility] ELECTROCARDIOLOGY RADIOLOGY 3:10 PM (20 min.) [address], Nuclear Medicine 27 28 29 20 [...] On HD since Aug 2011. No past PA, stress tests or coronary angiogorams. No chest [...] 1 tablet by mouth daily. ??? 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 Perez MD ways operator. Divisions of Cardiology [place], [place] CC Patient Care Team: Toña [place] MD as PCP - General (Nephrology) Ingrid Santana, RN as Registered Nurse (Transplant) JESUS THOMAS documented in this encounter Plan of Treatment Not on filedocumented as of this encounter Visit Diagnoses Diagnosis Unspecified essential hypertension Pre-operative clearance Preoperative examination, unspecified documented in this encounter Care Teams Cylinder Filler Relationship Specialty Start Date End Date Toña [place] MD PCP - General Nephrology 11/25/11 01/01/14 Ingrid Santana, RN Registered Nurse Transplant 02/10/12 documented as of this encounter
--- OUTSIDE RECORDS SUMMARY | 2022-07-10 14:12 | XMS_ITS | Encounter Summary ---
:1950 Author Organization [place] Address [address] [place] [address] Care Team Providers Name Role Phone Toña [place] MD Primary Care Provider Ingrid Santana RN Unavailable Unavailable Encounter Details Date Type Department Care Team Description 02/10/2012 Hospital Encounter [facility] Jesus Cardenas MD Nutrition Services Martina Harley, RD 420 [facility] 84 [place] [address] 420 [facility] Joseph Quintana MD [address] [facility] 353 [facility] [address] [place] [address] 84 [place] [address] Social History Tobacco Use Types Packs/Day Years [...] as needed Per patient on hold B rxrvist-U-auumn acid Take 1 capsule by mouth 0 02/08/2014 (NEPHROCAPS) 1 MG daily. capsule lisinopril Take 40 mg by mouth 0 02/08 (PRINIVIL,ZESTRIL) 40 daily MG tablet METOPROLOL SUCCINATE Take 100 mg by mouth 0 02/08/2014 PO daily documented as of this encounter Progress Notes Martina Mcneill, RD - 02/10/2012 8:47 AM CDT [facility] Medical Nutrition Therapy Visit Type: [...] on filedocumented in this encounter Care Teams Detasseler Relationship Specialty Start Date End Date Toña [place] MD PCP - General Nephrology 11/25/11 01/01/14 Ingrid Santana RN Registered Nurse Transplant 02/10/12 documented as of this encounter
--- OUTSIDE RECORDS SUMMARY | 2022-07-10 14:12 | XMS_ITS | Encounter Summary ---
:1950 Author Organization [place] Address [address] [facility] [place] [address] Care Team Providers Name Role Phone Toña [place] MD Primary Care Provider Ingrid Santana RN Unavailable Unavailable Encounter Details Date Type Department Care Team Description 12/07/2011 Orders Only Nephrology Chucho Joshi MD Dialysis patient (H) 2nd Floor, Clinic 2A [address] [place] (Primary Dx) Tommy Ruiz[address] [place] [address] [place], [place] [phone] (Wo rk) [address] [phone] Social History Tobacco Use Types Packs/Day Years Used Date Smoking Tobacco: Never Assessed Sex Assigned at Date Recorded Not on file documented as of this encounter Plan of Treatment Not on filedocumented as of this encounter Visit Diagnoses Diagnosis Dialysis patient (H) - Primary Renal dialysis status documented in this encounter Care Teams Lead Painter Relationship Specialty Start Date End Date Toña [place] MD PCP - General Nephrology 11/25/11 01/01/14 Ingrid Santana RN Registered Nurse Transplant 02/10/12 documented as of this encounter
--- OUTSIDE RECORDS SUMMARY | 2022-07-10 14:12 | XMS_ITS | Encounter Summary ---
:1950 Author Organization [place] Address [address] [place] [address] Care Team Providers Name Role Phone Toña [place] MD Primary Care Provider Encounter Details Date Type Department Care Team Description 02/08/2012 Orders Only [facility] Thomas, Ty Blink, End sta ge kidney Pulmonary Function MD disease ( H) (Primary Laboratory Dx) 6th Floor 500 [place] [address] Social History Tobacco Use Types [...] Lab Testing (Generic) (02/08/2012 8:35 AM CDT) [facility] Method Time Signature Pulmonary COPATH Function Test Name: ? ELINOR GUTHRIE ? ID: ?[id number] Doctor: ?JESUS THOMAS ?Height: ?72.00 in ? Age: ?? 61 Aki ?aKtrina Cortez ?Weight: ? 273.40 lbs ?? Sex: [...] INTERPRETATION: The FVC, FEV1, FEV1/FVC ratio and CME52-43% are within normal limits. ??The inspiratory flow [...] disease documented in this encounter Care Teams Ship/Rec/Doc Control Relationship Specialty Start Date End Date Toña [place] MD PCP - General Nephrology 11/25/11 01/01/14 documented as of this encounter
--- OUTSIDE RECORDS SUMMARY | 2022-07-10 14:12 | XMS_ITS | Encounter Summary ---
:1950 Author Organization [place] Address [address] [place] [address] Care Team Providers Name Role Phone Toña [place] MD Primary Care Provider Ingrid Santana RN Unavailable Unavailable Encounter Details Date Type Department Care Team Description 02/08/2012 Results Only LABORATORY RESULTS Jeff Joshi MD [address] [facility] 353 [place] [address] (Wo rk) Social History Tobacco [...] Phon e Number [facility] LABORATORY Immunology/Histocompatabil [place], [place] [address] [facility] [address] Building, Room 3-580 HISTOTRAC documented in this encounter Visit Diagnoses Not on filedocumented in this encounter Care Teams Machine Maintenance Supervisor Relationship Specialty Start Date End Date Toña Joens MD PCP - General Nephrology 11/25/11 01/01/14 Ingrid Santana, RN Registered Nurse Transplant 02/10/12 documented as of this encounter
--- OUTSIDE RECORDS SUMMARY | 2022-07-10 14:12 | XMS_ITS | Encounter Summary ---
:1950 Author Organization [place] Address [address] [place] [address] Care Team Providers Name Role Phone Toña [place] MD Primary Care Provider Encounter Details Date Type Department Care Team Description 02/08/2012 Hospital Encounter [facility] Jesus Cardenas MD Patient Learning Bobby Angela Leon, BOGDAN [address] [facility] [address] [place] [id number] 420 [place] [address] Social History Tobacco Use Types Packs/Day Years [...] 0 02/10/2012 10 MG tablet daily. B habcylw-T-srcsg acid Take 1 capsule by mouth 0 [...] on filedocumented in this encounter Care Teams [employer] Wiring Technician Relationship Specialty Start Date End Date Toña [place] MD PCP - General Nephrology 11/25/11 01/01/14 documented as of this encounter
--- OUTSIDE RECORDS SUMMARY | 2022-07-10 14:12 | XMS_ITS | Encounter Summary ---
:1950 Author Organization [place] Address [address] [place] [address] Care Team Providers Name Role Phone Toña [place] MD Primary Care Provider Ingrid Santana RN Unavailable Unavailable Encounter Details Date Type Department Care Team Description 02/08/2012 Results Only LABORATORY RESULTS Jeff Joshi MD [address] [facility] 353 [place] [address] (Wo rk) Social History Tobacco [...] Phon e Number [facility] LABORATORY Immunology/Histocompatabil [place], [place] [address] ity [facility] [address] [facility] [address] Building, Room 3-580 HISTOTRAC documented in this encounter Visit Diagnoses Not on filedocumented in this encounter Care Teams Patcher Relationship Specialty Start Date End Date Toña [place] MD PCP - General Nephrology 11/25/11 01/01/14 Ingrid Santana, RN Registered Nurse Transplant 02/10/12 documented as of this encounter
--- OUTSIDE RECORDS SUMMARY | 2022-07-10 14:12 | XMS_ITS | Encounter Summary ---
:1950 Author Organization [place] Address [address] [place] [address] Care Team Providers Name Role Phone Toña [place] MD Primary Care Provider Reason for Visit (Routine) - Closed Specialty Diagnoses / Procedures Referred By Contact Refer red To Contact Cardiology Diagnoses ECHO CLINIC COMPLETE ADULT Procedure Notes: DIABETES MELLITUS, TYPE 2,END STAGE RENAL DISEASE,Transplant eval,Performing Location?->[facility] [facility] Echocardiography Procedures RADIOLOGY [address] [place] [address] Phone: Referral ID Status Reason Start Date Expiration Date Visits Requ ested Visits Authorized [id number] Closed 01/21/2012 01/20/2013 1 1 Encounter Details Date Type Department Care Team Description 02/08/2012 Hospital [facility], Hass an, MD [address] [facility] 353 [place] [address] Diabetes mellitus, type 2 (H); Echocardiography Rajat German MD [address] [facility] [address] [place] [address] End stage renal disease (H) [address] [place] [address] Social History Tobacco Use Types [...] 0 02/10/2012 10 MG tablet daily. B guwvfkf-B-uvhus acid Take 1 capsule by mouth 0 [...] - Clinic (PWB) (02/08/2012 1:13 PM CDT) [facility] Method Time Signature XCELERA RADIOLOGY Interpretation Summary [...] disease documented in this encounter Care Teams Collating Machine Operator Relationship Specialty Start Date End Date Toña [place] MD PCP - General Nephrology 11/25/11 01/01/14 documented as of this encounter
--- OUTSIDE RECORDS SUMMARY | 2022-07-10 14:12 | XMS_ITS | Encounter Summary ---
:1950 Author Organization [place] Address [address] [place] [address] Care Team Providers Name Role Phone Toña [place] MD Primary Care Provider Ingrid Santana RN Unavailable Unavailable Encounter Details Date Type Department Care Team Description 02/08/2012 Results Only LABORATORY RESULTS Jeff Joshi MD [address] [facility] 353 [place] [address] (Wo rk) Social History Tobacco [...] II Single Antigen (02/08/2012 7:07 AM CDT) [facility] gist Method Time Signature SA2 [...] Phon e Number [facility] HLA LABORATORY Immunology/Histocompatabil [place], [place] [address] [facility] [address] Building, Room 3-580 HISTOTRAC documented in this encounter Visit Diagnoses Not on filedocumented in this encounter Care Teams Rate Clerk Passenger Relationship Specialty Start Date End Date Toña [place] MD PCP - General Nephrology 11/25/11 01/01/14 Ingrid Santana, RN Registered Nurse Transplant 02/10/12 documented as of this encounter
--- OUTSIDE RECORDS SUMMARY | 2022-07-10 14:12 | XMS_ITS | Encounter Summary ---
:1950 Author Organization [place] Address [address] [facility] [place] [address] Care Team Providers Name Role Phone Toña [...] 2 (H) Tommy Wilburn (Primar y Dx) [address] [phone] Social History Tobacco Use Types Packs/Day Years [...] this time. Patient to follow up with youth coordinator. documented in this encounter Plan of Treatment Not on filedocumented as of this encounter Visit Diagnoses Diagnosis DM (diabetes mellitus), type 2 (H) - Ana ashley Type II or unspecified type diabetes aung litus without mention of complication, not stated as uncontrolled documented in this encounter Care Teams Recycling Manager Relationship Specialty Start Date End Date Toña [place] MD PCP - General Nephrology 11/25/11 01/01/14 Ingrid Santana RN Registered Nurse Transplant 02/10/12 documented as of this encounter
--- OUTSIDE RECORDS SUMMARY | 2022-07-10 14:12 | XMS_ITS | Encounter Summary ---
:1950 Author Organization [place] Address [address] [place] [address]. [place] [address] Care Team Providers Name Role Phone Toña [place] MD Primary Care Provider Ingrid Santana RN Unavailable Unavailable Momo Forbes Primary Care Provider Encounter Details Date Type Department Care Team Description 01/20/2012 Historic Results [facility] Provider, MD Marcela Social History Tobacco Use [...] filedocumented in this encounter Care Teams Stone Unloader Relationship Specialty Start Date End Date Toña [place] MD PCP - General Nephrology 11/25/11 01/01/14 Momo Forbes PCP - General Family Practice 01/02/[address] [address] Siers, Ingrid A, RN Registered Nurse Transplant 02/10/12 documented as of this encounter
--- OUTSIDE RECORDS SUMMARY | 2022-07-10 14:12 | XMS_ITS | Encounter Summary ---
:1950 Author Organization [place] Address [address] [place] [address] Care Team Providers Name Role Phone Toña [place] MD Primary Care Provider Ingrid Santana RN Unavailable Unavailable Encounter Details Date Type Department Care Team Description 02/10/2012 Orders Only [facility] Anita Joshi MD Diabetes mellitus, type 2 (H); Clinic Imaging [address] [place] [address] End stage renal disease (H) [facility] [address] [place] [address] 1st Floor, Clinic [id number] [place] [address] [address] Social History Tobacco Use Types [...] disease documented in this encounter Care Teams Corporate Compliance Manager Relationship Specialty Start Date End Date Toña [place] MD PCP - General Nephrology 11/25/11 01/01/14 Ingrid Santana RN Registered Nurse Transplant 02/10/12 documented as of this encounter
--- OUTSIDE RECORDS SUMMARY | 2022-07-10 14:12 | XMS_ITS | Encounter Summary ---
:1950 Author Organization [place] Address [address] [place] [address] Care Team Providers Name Role Phone Toña [place] MD Primary Care Provider Reason for Visit Reason Onset Date Comments Patient Reminder 02/01/2012 Encounter Details Date Type Department Care Team Description 02/01/2012 PRE VISIT Nephrology Joseph Quintana, Patient Reminder 2nd Floor, Clinic 2A MD Tommy Wilburn [address] [place] [address] [address] [place], [place] [address] [place] [address] (Wo rk) [address] [phone] Social History Tobacco Use Types Packs/Day Years [...] in this encounter Care Teams Professor Of Forest Planning Relationship Specialty Start Date End Date Toña [place] MD PCP - General Nephrology 11/25/11 01/01/14 documented as of this encounter
--- OUTSIDE RECORDS SUMMARY | 2022-07-10 14:12 | XMS_ITS | Encounter Summary ---
:1950 Author Organization [place] Address [address] [place] [address] Care Team Providers Name Role Phone Toña [place] MD Primary Care Provider Reason for Visit Reason Onset Date Comments Pre Visit Planning - Done 02/07/2012 Consult prior to kidney transplant, needs EKG please. Encounter Details Date Type Department Care Team Description 02/07/2012 PRE VISIT [facility] Barbara Bradley Pre Visit Planning - Physicians Orestes Licona MD Done (Consult prior to [place] [facility] [address] kidney transplant, [place] [address] needs EKG please.) 4th Floor, Clinic [address]B [address] [address] Social History Tobacco Use Types [...] filedocumented in this encounter Care Teams Manufacturing Weaver Relationship Specialty Start Date End Date Toña [place] MD PCP - General Nephrology 11/25/11 01/01/14 documented as of this encounter
--- OUTSIDE RECORDS SUMMARY | 2022-07-10 14:13 | XMS_ITS | Encounter Summary ---
:1950 Author Organization [place] Address [address] [place] [address] Care Team Providers Name Role Phone Toña [...] filedocumented in this encounter Care Teams Procurement Analyst Relationship Specialty Start Date End Date Toña [place] MD PCP - General Nephrology 11/25/11 01/01/14 Momo Forbes PCP - General Family Practice 01/02/14 [facility] [address] [place] [address] Ingrid Santana, RN Registered Nurse Transplant 02/10/12 documented as of this encounter
--- OUTSIDE RECORDS SUMMARY | 2022-07-10 14:13 | XMS_ITS | Encounter Summary ---
:1950 Author Organization [place] Address [address] [place] [address]. [place] [address] Care Team Providers Name Role Phone Toña [place] MD Primary Care Provider Ingrid Santana RN Unavailable Unavailable Momo Forbes Primary Care Provider Encounter Details Date Type Department Care Team Description 05/20/2010 Historic Results [facility] Provider, MD Marcela Social History Tobacco [...] on filedocumented in this encounter Care Teams Harm Reduction Worker Relationship Specialty Start Date End Date Toña [place] MD PCP - General Nephrology 11/25/11 01/01/14 Momo Forbes PCP - General Family Practice 01/02/[address] [address] Siers, Ingrid A, RN Registered Nurse Transplant 02/10/12 documented as of this encounter
--- OUTSIDE RECORDS SUMMARY | 2022-07-10 14:13 | XMS_ITS | Encounter Summary ---
:1950 Author Organization [place] Address [facility] [place] [address] Care Team Providers Name Role Phone Toña [place] MD Primary Care Provider Ingrid Santana RN Unavailable Unavailable Momo Forbes Primary Care Provider Encounter Details Date Type Department Care Team Description 01/28/1998 [facility] Cesar Tejeda [facility] [address] [place], [place] [address] (Wo rk) Social History Tobacco Use Types Packs/Day Years Used Date Smoking Tobacco: Never Assessed Sex Assigned at Date Recorded Not on file documented as of this encounter Plan of Treatment Not on filedocumented as of this encounter Visit Diagnoses Not on filedocumented in this encounter Care Teams Advanced Practice Rn Relationship Specialty Start Date End Date Toña [place] MD PCP - General Nephrology 11/25/11 01/01/14 Momo Forbes PCP - General Family Practice 01/02/[address] [address] Ingrid Santana, RN Registered Nurse Transplant 02/10/12 documented as of this encounter
--- OUTSIDE RECORDS SUMMARY | 2022-07-10 14:13 | XMS_ITS | Encounter Summary ---
:1950 Author Organization [place] Address [address] [place] [address]. [place] [address] Care Team Providers Name Role Phone Toña [place] MD Primary Care Provider Ingrid Santana RN Unavailable Unavailable Momo Forbes Primary Care Provider Encounter Details Date Type Department Care Team Description 05/12/2011 Historic Results [facility] - [...] filedocumented in this encounter Care Teams Lard Mixer Relationship Specialty Start Date End Date Toña [place] MD PCP - General Nephrology 11/25/11 01/01/14 Momo Forbes PCP - General Family Practice 01/02/[address] [address] Siers, Ingrid A, RN Registered Nurse Transplant 02/10/12 documented as of this encounter
--- OUTSIDE RECORDS SUMMARY | 2022-07-10 14:13 | XMS_ITS | Encounter Summary ---
:1950 Author Organization [place] Address [address] [place] [address] Care Team Providers Name Role Phone Toña [...] filedocumented in this encounter Care Teams Lead Refiner Relationship Specialty Start Date End Date Toña [place] MD PCP - General Nephrology 11/25/11 01/01/14 Momo Forbes PCP - General Family Practice 01/02/14 [facility] [address] [place] [address] Ingrid Santana, RN Registered Nurse Transplant 02/10/12 documented as of this encounter
--- OUTSIDE RECORDS SUMMARY | 2022-07-10 14:13 | XMS_ITS | Encounter Summary ---
:1950 Author Organization [place] Address [address] [place] [address] Care Team Providers Name Role Phone Toña [...] on filedocumented in this encounter Care Teams Bail Bond Agent Relationship Specialty Start Date End Date Toña [place] MD PCP - General Nephrology 11/25/11 01/01/14 Momo Forbes PCP - General Family Practice 01/02/14 [facility] [address] [place] [address] Ingrid Santana, RN Registered Nurse Transplant 02/10/12 documented as of this encounter
--- OUTSIDE RECORDS SUMMARY | 2022-07-10 14:13 | XMS_ITS | Encounter Summary ---
:1950 Author Organization [place] Address [address] [facility] [place] [address] Care Team Providers Name Role Phone Toña [...] - HIM SCAN - 11/02/2005 8:27 AM DRAWING IN MACHINE TENDER HELPER ARCHIVE LAB RESULT - HIM SCAN - 11/02/2005 8:25 AM DRAWING IN MACHINE TENDER HELPER ARCHIVE documented in this encounter Results LAB RESULT - HIM SCAN - ARCHIVE (11/02/2005 8:27 AM DRAWING IN MACHINE TENDER HELPER) Specimen (Source) Anatomical Location Collection Method / Collectio n Time Received Time / Laterality Volume Narrative This result has an attachment that is no t available. Marcela Provider LAB - BLOOD ORDERABLES LAB RESULT - HIM SCAN - ARCHIVE (11/02/2005 8:25 AM DRAWING IN MACHINE TENDER HELPER) Specimen (Source) Anatomical Location Collection Method / Collectio n Time Received Time / Laterality Volume Narrative This result has an attachment that is no t available. Marcela Provider LAB - BLOOD ORDERABLES documented in this encounter Visit Diagnoses Not on filedocumented in this encounter Care Teams Plastics Plater Relationship Specialty Start Date End Date Toña [place] MD PCP - General Nephrology 11/25/11 01/01/14 Momo Forbes PCP - General Family Practice 01/02/[address] [address] Ingrid Santana, RN Registered Nurse Transplant 02/10/12 documented as of this encounter
--- OUTSIDE RECORDS SUMMARY | 2022-07-10 14:13 | XMS_ITS | Encounter Summary ---
:1950 Author Organization [place] Address [address] [place] [address]. [place] [address] Care Team Providers Name Role Phone Toña Jones MD Primary Care Provider Ingrid Santana RN Unavailable Unavailable Momo Forbes Primary Care Provider Encounter Details Date Type Department Care Team Description 01/06/2011 [facility] Marcela Social History Tobacco [...] filedocumented in this encounter Care Teams Rn Review Relationship Specialty Start Date End Date Toña Jones MD PCP - General Nephrology 11/25/11 01/01/14 Momo Forbes PCP - General Family Practice 01/02/[address] [address] Siers, Ingrid A, RN Registered Nurse Transplant 02/10/12 documented as of this encounter
--- OUTSIDE RECORDS SUMMARY | 2022-07-10 14:13 | XMS_ITS | Encounter Summary ---
:1950 Author Organization [place] Address [address] [facility] [place] [address] Care Team Providers Name Role Phone Unavailable Primary Care Provider Unavailable Encounter Details Date Type Department Care Team Description 07/30/2009 Results [facility] Results [address] [place] [address] [place] [id number] Social History Tobacco Use Types Packs/Day Years Used Date Smoking Tobacco: Never Assessed Sex Assigned at Date Recorded Not on file documented as of this encounter Plan of Treatment Not on filedocumented as of this encounter Procedures Procedure Name Priority Date/Time Associated Diagnosis [facility] RT DUPLEX Routine 07/30/2009 12:32 PM Results for this EXTREM VENOUS,UNI RESEARCH CHIEF ENGINEER procedure are in OR LTD the results section. documented in this encounter Results RT DUPLEX EXTREM VENOUS,UNI OR LTD (07/30/2009 12:32 PM RESEARCH CHIEF ENGINEER) Anatomical Region Laterality Modality Other Specimen (Source) Anatomical Collection Method Collection Time Re ceived Time Location / / Volume Laterality 07/30/2009 12:32 PM RESEARCH CHIEF ENGINEER Impressions 07/30/2009 4:21 PM RESEARCH CHIEF ENGINEER ULTRASOUND VENOUS LOWER EXTREMITY UNILAT ERAL RIGHT [...]
--- OUTSIDE RECORDS SUMMARY | 2022-07-10 14:13 | XMS_ITS | Encounter Summary ---
:1950 Author Organization [place] Address [address] [facility] [place] [address] Care Team Providers Name Role Phone Toña Jones MD Primary Care Provider Ingrid Santana RN Unavailable Unavailable Momo Forbes Primary Care Provider Encounter Details Date Type Department Care Team Description 08/30/2011 Historic Results [facility] [...] CARDIAC - HIM SCAN 08/30/2011 8:28 AM INVOICING MACHINE OPERATOR - ARCHIVE ECHO CARDIAC - HIM SCAN 08/30/2011 8:27 AM INVOICING MACHINE OPERATOR - ARCHIVE documented in this encounter Results EKG CARDIAC - HIM SCAN - ARCHIVE (08/30/2011 8:28 AM INVOICING MACHINE OPERATOR) Specimen (Source) Anatomical Location Collection Method / Collectio n Time Received Time / Laterality Volume Narrative This result has an attachment that is no t available. Gich Provider ECG ORDERABLES ECHO CARDIAC - HIM SCAN - ARCHIVE (08/30/2011 8:27 AM INVOICING MACHINE OPERATOR) Anatomical Region Laterality Modality Echocardiography Specimen (Source) Anatomical Location Collection Method / Collectio n Time Received Time / Laterality Volume Narrative This result has an attachment that is no t available. Marcela Provider CV ECHO ORDERABLES documented in this encounter Visit Diagnoses Not on filedocumented in this encounter Care Teams Bolt Machine Operator Relationship Specialty Start Date End Date Toña Jones MD PCP - General Nephrology 11/25/11 01/01/14 Momo Forbes PCP - General Family Practice 01/02/14 [facility] [address] [place] [address] Ingrid Santana, RN Registered Nurse Transplant 02/10/12 documented as of this encounter
--- OUTSIDE RECORDS SUMMARY | 2022-07-10 14:13 | XMS_ITS | Encounter Summary ---
:1950 Author Organization [place] Address [address] [place] [address]. [place] [address] Care Team Providers Name Role Phone Toña Jones MD Primary Care Provider Ingrid Santana RN Unavailable Unavailable Momo Forbes Primary Care Provider Encounter Details Date Type Department Care Team Description 12/13/2005 Historic Results [facility] Provider, MD Marcela [...] filedocumented in this encounter Care Teams Building Maintenance Worker Relationship Specialty Start Date End Date Toña oJnes MD PCP - General Nephrology 11/25/11 01/01/14 Momo Forbes PCP - General Family Practice 01/02/[address] [address] Siers, Ingrid A, RN Registered Nurse Transplant 02/10/12 documented as of this encounter
--- OUTSIDE RECORDS SUMMARY | 2022-07-10 14:13 | XMS_ITS | Encounter Summary ---
:1950 Author Organization [place] Address [address] [facility] [place] [address] Care Team Providers Name Role Phone Toña [...] attachment that is no t available. Macrela Provider LAB - BLOOD ORDERABLES documented in this encounter Visit Diagnoses Not on filedocumented in this encounter Care Teams Bench Repair Technician Relationship Specialty Start Date End Date Toña Jones MD PCP - General Nephrology 11/25/11 01/01/14 Momo Forbes PCP - General Family Practice 01/02/14 [facility] [address] [place] [address] Ingrid Santana, RN Registered Nurse Transplant 02/10/12 documented as of this encounter
--- OUTSIDE RECORDS SUMMARY | 2022-07-10 14:13 | XMS_ITS | Encounter Summary ---
:1950 Author Organization [place] Address [address] [place] [address]. [place] [address] Care Team Providers Name Role Phone Toña Jones MD Primary Care Provider Ingrid Santana RN Unavailable Unavailable Momo Forbes Primary Care Provider Encounter Details Date Type Department Care Team Description 06/05/2008 Historic Results [facility] Provider, MD [...] filedocumented in this encounter Care Teams Automatic Nailing Machine Operator Relationship Specialty Start Date End Date Toña Jones MD PCP - General Nephrology 11/25/11 01/01/14 Momo Forbes PCP - General Family Practice 01/02/[address] [address] Siers, Ingrid A, RN Registered Nurse Transplant 02/10/12 documented as of this encounter
--- OUTSIDE RECORDS SUMMARY | 2022-07-10 14:13 | XMS_ITS | Encounter Summary ---
:1950 Author Organization [place] Address [address] [place] [address]. [place] [address] Care Team Providers Name Role Phone Toña Jones MD Primary Care Provider Ingrid Santana RN Unavailable Unavailable Momo Forbes Primary Care Provider Encounter Details Date Type Department Care Team Description 01/12/2010 Historic Results [facility] [...] PCP - General Family Practice 01/02/[address] [address] Siers, Ingrid A, RN Registered Nurse Transplant 02/10/12 documented as of this encounter
--- OUTSIDE RECORDS SUMMARY | 2022-07-10 14:13 | XMS_ITS | Encounter Summary ---
:1950 Author Organization [place] Address [address] [place] [address]. [place] [address] Care Team Providers Name Role Phone Toña [...] filedocumented in this encounter Care Teams Cashier Parking Lot Relationship Specialty Start Date End Date Toña Jones MD PCP - General Nephrology 11/25/11 01/01/14 Momo Forbes PCP - General Family Practice 01/02/[address] [address] Siers, Ingrid A, RN Registered Nurse Transplant 02/10/12 documented as of this encounter
--- OUTSIDE RECORDS SUMMARY | 2022-07-10 14:13 | XMS_ITS | Encounter Summary ---
:1950 Author Organization [place] Address [address] [place] [address]. [place] [address] Care Team Providers Name Role Phone Toña Jones MD Primary Care Provider Ingrid Santana RN Unavailable Unavailable Momo Forbes Primary Care Provider Encounter Details Date Type Department Care Team Description 01/14/2006 Historic Results [facility] Provider, MD Marcela Social History [...] on filedocumented in this encounter Care Teams Catalyst Recovery Operator Relationship Specialty Start Date End Date Toña Jones MD PCP - General Nephrology 11/25/11 01/01/14 Momo Forbes PCP - General Family Practice 01/02/[address] [address] Siers, Ingrid A, RN Registered Nurse Transplant 02/10/12 documented as of this encounter
--- OUTSIDE RECORDS SUMMARY | 2022-07-10 14:13 | XMS_ITS ---
:1950 Author Organization [place] Address [address] [place] [address] Care Team Providers Name Role Phone Momo Forbes Primary Care Provider Joseph Quintana MD Unavailable [facility] [place] [facility] [place] - MNUMOrgan Received: Right KidneyTransplanted on 02/02/2014Marked as Active Follow-up on 02/02/2014 Kidney CoordinatorCHAPO [place]hone: N/AFax: N/AEmail: N/A [place] Organ Diagnosis Organ Primary Contributory Kidney Diabetes Mellitus - Type II Infection History Noted Survival Infection Treatment Organism Resolved 09/18/2020 6 years 7 months Gram-negative Surgery, Medical bacterial infection management 09/17/2020 6 years 7 months Bacterial infection Antibiotics Donor Information Organ ABO Source Meets Risk HLA Match Mismatches [facility] Criteria Right Kidney A1 DBD No A: [...] N/A G German Jones MD Referring Physician [phone] [email or web address] Post-Transplant Pre-Transplant Admitted: 02/02/2014 Referred: 12/07/2011 Transplanted: 02/02/2014 Evaluation began: 02/08/2012 Discharged: 02/08/2014 Committee: 02/16/2012 Center waitlisted: 02/18/2012 Dialysis History Dialysis History Start End Type Comments Center 09/06/2011 02/02/2014 Hemo Dialysis Days per week -- [facility] ([facility] Dialysis Center Information Center Phone Fax Address [facility] [phone] [address] (ESRD) [facility] [phone]
--- OUTSIDE RECORDS SUMMARY | 2022-07-10 14:13 | XMS_ITS | Encounter Summary ---
:1950 Author Organization [place] Address [address] [place] [address]. [place] [address] Care Team Providers Name Role Phone Toña Jones MD Primary Care Provider Ingrid Santana RN Unavailable Unavailable Momo Forbes Primary Care Provider Encounter Details Date Type Department Care Team Description 04/12/2007 Historic Results [facility] [...] filedocumented in this encounter Care Teams Automatic Glove Former Relationship Specialty Start Date End Date Toña Jones MD PCP - General Nephrology 11/25/11 01/01/14 Momo Forbes PCP - General Family Practice 01/02/[address] [address] Siers, Ingrid A, RN Registered Nurse Transplant 02/10/12 documented as of this encounter
--- OUTSIDE RECORDS SUMMARY | 2022-07-10 14:13 | XMS_ITS | Encounter Summary ---
:1950 Author Organization [place] Address [facility] [place] [address] Care Team Providers Name Role Phone Toña Jones MD Primary Care Provider Reason for Referral - Closed Specialty Diagnoses / Procedures Referred By Contact Refer red To Contact Diagnoses Diabetes mellitus, type 2 (H) End stage renal disease (H) [facility] 2nd Floor, [place] [phone] Referral ID Status Reason Start Date Expiration Date Visits Requ ested Visits Authorized [id number] Closed 12/02/2011 05/30/2012 1 1 - Closed Specialty Diagnoses / Procedures Referred By Contact Refer red To Contact Diagnoses Diabetes mellitus, type 2 (H) End stage renal disease (H) [facility] Floor, [place] [phone] Referral ID Status Reason Start Date Expiration Date Visits Requ ested Visits Authorized [id number] Closed 12/02/2011 05/30/2012 1 1 - Closed Specialty Diagnoses / Procedures Referred By Contact Refer red To Contact Diagnoses Diabetes mellitus, type 2 (H) End stage renal disease (H) [facility] 2nd Floor, [place] [phone] Referral ID Status Reason Start Date Expiration Date Visits Requ ested Visits Authorized [id number] Closed 12/02/2011 05/30/2012 1 1 - Closed Specialty Diagnoses / Procedures Referred By Contact Refer red To Contact Diagnoses Diabetes mellitus, type 2 (H) End stage renal disease (H) [facility] 2nd Floor, [facility] [address] [place] [phone] Referral ID Status Reason Start Date Expiration Date Visits Requ ested Visits Authorized [id number] Closed 12/02/2011 05/30/2012 1 1 - Closed Specialty Diagnoses / Procedures Referred By Contact Refer red To Contact Diagnoses Diabetes mellitus, type 2 (H) End stage renal disease (H) [facility] Floor, [place] [phone] Referral ID Status Reason Start Date Expiration Date Visits Requ ested Visits Authorized [id number] Closed 12/02/2011 05/30/2012 1 1 - Closed Specialty Diagnoses / Procedures Referred By Contact Refer red To Contact Diagnoses Diabetes mellitus, type 2 (H) End stage renal disease (H) [facility] Floor, [place] [phone] Referral ID Status Reason Start Date Expiration Date Visits Requ ested Visits Authorized [id number] Closed 12/02/2011 05/30/2012 1 1 - Closed Specialty Diagnoses / Procedures Referred By Contact Refer red To Contact Diagnoses Diabetes mellitus, type 2 (H) End stage renal disease (H) [facility] 2nd Floor, [facility] [address] [address] [phone] Referral ID Status Reason Start Date Expiration Date Visits Requ ested Visits Authorized [id number] Closed 12/02/2011 05/30/2012 1 1 - Closed Specialty Diagnoses / Procedures Referred By Contact Refer red To Contact Diagnoses Diabetes mellitus, type 2 (H) End stage renal disease (H) [facility] 2nd Floor, [facility] [address] [address] [phone] Referral ID Status Reason Start Date Expiration Date Visits Requ ested Visits Authorized [id number] Closed 12/02/2011 05/30/2012 1 1 - Closed Specialty Diagnoses / Procedures Referred By Contact Refer red To Contact Diagnoses Diabetes mellitus, type 2 (H) End stage renal disease (H) [facility] 2nd Floor, [facility] [address] [phone] Referral ID Status Reason Start Date Expiration Date Visits Requ ested Visits Authorized [id number] Closed 12/02/2011 05/30/2012 1 1 Encounter Details Date Type Department Care Team Description 12/02/2011 Orders Only Nephrology Ingrid Santana, Diabetes mellitus, type 2 (H ); 2nd Floor, Clinic [facility] RN End stage renal disease (H) [address] [phone] Social History Tobacco Use Types [...] 2 (H) End stage renal disease (H) MANAGER GARAGE Referral Routine Diabetes mellitus, Ordered: 12/02/2011 REFERRAL type 2 (H) End stage renal disease (H) NEPHROLOGY ADULT REFERRAL Referral Routine Diabetes mellit us, Ordered: 12/02/2011 type 2 (H) End stage renal disease (H) GENERAL SURG ADULT Referral Routine Diabetes mellitus, Ord ered: 12/02/2011 REFERRAL type 2 (H) End stage renal disease (H) MANAGER BOOKS REFERRAL Referral Routine Diabetes mellitu s, Ordered: [...] disease documented in this encounter Care Teams Trial Justice Relationship Specialty Start Date End Date Toña Jones MD PCP - General Nephrology 11/25/11 01/01/14 documented as of this encounter
--- OUTSIDE RECORDS SUMMARY | 2022-07-10 14:13 | XMS_ITS | Encounter Summary ---
:1950 Author Organization [place] Address [address] [place] [address]. [place] [address] Care Team Providers Name Role Phone Toña Jones MD Primary Care Provider Ingrid Santana RN Unavailable Unavailable Momo Forbes Primary Care Provider Encounter Details Date Type Department Care Team Description 05/25/[address] [facility] Provider, MD Marcela Social History [...] on filedocumented in this encounter Care Teams Gallery Manager Relationship Specialty Start Date End Date Toña Jones MD PCP - General Nephrology 11/25/11 01/01/14 Momo Forbes PCP - General Family Practice 01/02/[address] [address] Siers, Ingrid A, RN Registered Nurse Transplant 02/10/12 documented as of this encounter
--- OUTSIDE RECORDS SUMMARY | 2022-07-10 14:13 | XMS_ITS | Encounter Summary ---
:1950 Author Organization [place] Address [address] [place] [address] Care Team Providers Name Role [...] filedocumented in this encounter Care Teams Him Tech Relationship Specialty Start Date End Date Toña Jones MD PCP - General Nephrology 11/25/11 01/01/14 Momo Forbes PCP - General Family Practice 01/02/14 [facility] [address] [place] [address] Ingrid Santana, RN Registered Nurse Transplant 02/10/12 documented as of this encounter
--- OUTSIDE RECORDS SUMMARY | 2022-07-10 14:13 | XMS_ITS | Encounter Summary ---
:1950 Author Organization [place] Address [address] [facility] [place] [address] Care Team Providers Name Role Phone Toña [...] on filedocumented in this encounter Care Teams Refining Still Operator Relationship Specialty Start Date End Date Toña Jones MD PCP - General Nephrology 11/25/11 01/01/14 Momo Forbes PCP - General Family Practice 01/02/14 [facility] [address] [place] [address] Ingrid Santana, RN Registered Nurse Transplant 02/10/12 documented as of this encounter
--- OUTSIDE RECORDS SUMMARY | 2022-07-10 14:13 | XMS_ITS | Encounter Summary ---
:1950 Author Organization [place] Address [address] [place] [address]. [place] [address] Care Team Providers Name Role Phone Toña Jones MD Primary Care Provider Ingrid Santana RN Unavailable Unavailable Momo Forbes Primary Care Provider Encounter Details Date Type Department Care Team Description 01/02/2008 Historic Results [facility] Provider, MD Marcela Social History [...] filedocumented in this encounter Care Teams Mechanical Equipment Sales Engineer Relationship Specialty Start Date End Date Toña Jones MD PCP - General Nephrology 11/25/11 01/01/14 Momo Forbes PCP - General Family Practice 01/02/[address] [address] Siers, Ingrid A, RN Registered Nurse Transplant 02/10/12 documented as of this encounter
[2022-07-10] MEDS: 0.9 % SODIUM CHLORIDE 1000 ml 1,000 ML IV (14:20)
[2022-07-10] MEDS: ONDANSETRON 2 MG/ML inj 4 MG IVP (14:20)
[2022-07-10 14:22] LABS: Chloride* 112 mmol/L (96-114); Potassium* 4.8 mmol/L (3.6-5.1); Sodium* 137 mmol/L (135-149)
[2022-07-10 14:23] LABS: Albumin* 2.9 g/dL (3.3-5.0)
[2022-07-10 14:25] LABS: Blood Urea Nitrogen* 22 mg/dL (7-30); Carbon Dioxide* 22 mmol/L (20-32); Creatinine* 2.2 mg/dL (0.5-1.5); Est. Creatinine Clearance* 33.31; Estimated Glomerular Filt Rate 31 ml/min
[2022-07-10 14:25] LABS: SARS PCR* POSITIVE SARS-CoV-2 (Negative)
[2022-07-10 14:26] LABS: Alanine Aminotransferase* 12 U/L (4-50); Alkaline Phosphatase* 114 U/L (40-150); Aspartate Amino Transferase* 13 U/L (12-35); Bilirubin Direct* 0.2 mg/dL (0.0-0.5); Bilirubin Total* 1.4 mg/dL (0.1-1.5); Glucose* 314 mg/dL (60-115); Magnesium* 1.8 mg/dL (1.5-2.6); Total Protein* 5.8 g/dL (6.0-8.3)
[2022-07-10 14:28] LABS: C Reactive Protein* 5.5 mg/dL (0.5-1.0)
[2022-07-10 14:34] LABS: NT Pro B Type NatriureticPept* 7710 PG/mL (0-125)
--- NOTE | 2022-07-10 15:11 | ED.NURSE ---
Pt incontinent of stool. Pt cleaned with laurel wipes. While cleaning pt's buttocks, multiple wounds noted on pt's buttocks. 3 wounds noted on pt's R buttock near the upper aspect of the gluteal cleft measuring approx 2.5 cm, 1 cm, and 1 cm in length. 2 wounds noted on pt's L buttock near the upper aspect of the gluteal cleft measuring approx 1.5cm and 1cm in length. Pt's inguinal area noted bilaterally to be slightly reddened and discolored. Inguinal areas also cleaned with laurel wipes. New brief applied to pt.
--- NOTE | 2022-07-10 15:24 | ED.NURSE ---
Pt gave verbal permission for update to his partner, Tete. Called Tete ([phone]) and provided update.
--- NOTE | 2022-07-10 15:27 | PM.IMHP1 ---
Hospitalist- H&P: HPI History of Present Illness Date Seen: 07/10/22 Chief complaint: Weakness/SOB Narrative: ADMISSION HISTORY AND PHYSICAL - HOSPITALIST Chief Complaint: Increasing weakness, DOVE HPI: Latrell has had a rough 5 weeks. 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 He has been COVID PCR positive since 06/01/2022. He reports feeling ill since the beginning of May. Today's presentation via EMS is for continued and worsening weakness and dyspnea on exertion. He was first admitted on 06/01/22 to [facility], covid pneumonia with hypoxia, UTI. He was discharged in 5 days improved. He was given Decadron and Ceftin. He regressed and was readmitted in on 06/15/22 to [facility]. Discharged on 06/20/22. He had continued to be hypoxic and weak attributed to continued Covid. He is immunocompromised secondary to a renal transplant 2014 for end-stage diabetic nephropathy. In his last admission he was treated with dexamethasone, Baricitnib, oxygen. Each time he discharged on room air. Since his last discharge on 06/20/2022 he has had a progressive weakness and dyspnea on exertion. He lives with his exceptional significant other, Tete, who is worried about this progressive weakness and inability to stay continent of urine and stool. She tells our pharmacist, Katarina, that she is not sure he has been going to the kitchen and taking his insulin. He spends most of his time in a recliner in the living room. Most recently he denies fever, chills. He has had a cough but there has been no significant change in this over the last several weeks. He said he just has trouble moving. He states he has no energy and it takes him a long time to get his prosthesis on and moved toward the bathroom. He states he gets extremely short of breath with most movements. Looking through his epic record and our previous [employer] record it appears he has poor compliance and poor follow-up. However Latrell tells me ?I love life and I am happy. Just tired of being sick? -Latrell did see his PCP, Dr. Forbes, on June 23. He either started or continued Omnicef, continuing for 10 more days from the 23 June. In the ED -found to be hypoxic needing 2.5 L to keep his sats greater than 90%, other vital signs are stable -chest x-ray and chest CT demonstrate bilateral pneumonia and likely a component of CHF -Latrell is in rate controlled AFib -normal pH on his blood gas and no CO2 retention -dramatically increased BNP from last month -negative procalcitonin -elevated blood glucose -at his baseline creatinine -covid PCR positive, antigen negative -he was given a small fluid bolus and Zofran. Hospital medicine team was asked to admit for acute respiratory failure. I've updated the PFSH, medications and allergies in the [facility] tabs. INVESTIGATIONS: LABS/MICRO/ECG/IMAGING REVIEW OF SYSTEMS: 12-point ROS completed with patient and negative unless otherwise stated in HPI or below. Afebrile since arrival in the ED Blood pressure 139/73, 151/94, 145/96 Pulse 70s Respiratory rate 22 Sats 95% on 2.5 L but originally 87% air upon presentation CBC reflects a normal white blood cell count, 4.6 Baseline anemia, 11.4 Platelet count 128 Blood gas reveals a normal pH, normal pCO2 Normal electrolytes Chronic kidney disease at his baseline 2.2 Glucose 314 Normal magnesium, normal LFTs CRP 5.5 ProBNP 7700 ProBNP previously: 116 on June 14 266 on June 04 435 June 03 601 on August of 2011 Chest x-ray from ER - one-view portable IMPRESSION: Hazy increase from comparison in the airspace opacity in the parahilar and right upper lobe suggesting pneumonia. Somewhat low lung volumes. Interstitial prominence diffusely similar to before. Some increased hazy airspace opacity at the right base is well. Multifocal pneumonia not excluded. Pulmonary vessels are somewhat prominent. Query some degree of volume overload. Chest CT tonight upon admission (noncon) 1. Bilateral lung infiltrates compatible with pneumonia. 2. Small bilateral pleural effusions. 3. Increased number of small mediastinal and hilar lymph nodes which could be reactive. Blood cultures drawn this afternoon x2 are pending. EKG shows AFib, rate controlled Chest CT without contrast done on 06/14/2022 when admitted to [facility] Demonstration of extensive interstitial, ground-glass and airspace opacities throughout the bilateral hemithoraces with reactive mediastinal and hilar lymph nodes commensurate with multifocal infiltrates and/or pulmonary edema. Bailey virus infection can have this appearance. Correlate with clinical testing if there is persistent clinical concern. Bilateral renal ultrasound done on May 31 while admitted to [place] [id number] 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 No perinephric fluid collection or other significant finding. Echo done on 06/16/2022 Normal left ventricular chamber size, no regional wall motion abnormalities, EF 58% Abnormal left ventricular geometry with concentric LVH, indeterminate filling pressure Mild enlarged right ventricle, normal systolic function, unable to detect peak tricuspid regurg velocity for pulmonary artery systolic pressure calculation No hemodynamically significant valvular heart disease Enlarged IVC with normal inspiratory collapse No effusion PHYSICAL EXAM: CODE STATUS: FULL CODE CONSTITUTIONAL: Tired but awake. Looks chronically ill, fatigued. Making sense but has limited insight. VITAL SIGNS: see record. HEENT: Normocephalic, atraumatic. PERRL, EOMI, conjunctivae pink, no scleral icterus. Ears and nose externally normal. Pharynx dry. NECK: No JVD. No carotid bruit, no thyromegaly, no adenopathy. CHEST: Shallow inspirations. No wheezes auscultated. HEART: S1 and S2 normal. No harsh murmurs. Edema 1+. MUSCULOSKELETAL: Examination of his BKA, left: Nontender. No obvious erythema or hematoma. Small abrasion, chronic, on the lateral side of the stump. NEURO: Cranial nerves intact. Grossly intact. No asymmetric findings. SKIN: Gluteal fold skin breakdown, contaminated with stool. Not decubitus ulcers, or chronic ulceration likely from hyperglycemia or poor self-care PSYCHIATRIC: Euthymic. ADMIT TO MEDSURG: FLOOR CARE DVT: Starting him on renally dosed Eliquis GI: PO intake and continued PPI Time spent: 70 minutes examining patient, conferring with family and patient, care staff, developing care plan [facility] Medical History (Updated 07/10/22 @ 17:53 by Alexandria Cid MD) Anemia associated with stage 5 chronic renal failure (01/27/10) Below-knee amputation of left lower extremity Charcot's joint of left foot Chronic kidney disease COVID-19 Erectile dysfunction (07/30/06) General patient noncompliance Generalized anxiety disorder History of adenomatous polyp of colon (01/01/14) Hyperlipidemia Hyperparathyroidism due to renal insufficiency (01/27/10) Hypertension Insomnia Insulin dependent diabetes mellitus Major depression Pancreatic lesion Peripheral neuropathy Permanent atrial fibrillation (01/11/22) Proliferative diabetic retinopathy Superficial nodular basal cell carcinoma (BCC) Thyroid nodule Ulcer of left lower extremity Vitamin D deficiency (11/20/11) Surgical History (Updated 07/10/22 @ 17:28 by Alexandria Cid MD) Amputation of left lower extremity (12/17/05) AV fistula History of cataract extraction History of panretinal photocoagulation History of vitrectomy Hx of BKA Renal transplant recipient Family History (Updated 07/10/22 @ 16:38 by Alexandria Cid MD) Father Coronary artery disease Social History Narrative: Lives with Tete, significant other, 8 years. No children. 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 Grew up in [place], [place]. Wears glasses. No dentures. No hearing aids. One brother in [place]. No drugs, no alcohol, distant smoking history. Parents . Highest level of school completed/degree received: Bachelor's degree Smoking Status: Never smoker How often do you have a drink containing alcohol: never How often do you have six or more drinks on one occasion: Never AUDIT-C Alcohol total score: 0 Non-prescribed substance use: denies use Caffeine: No Little interest or pleasure in doing things: several days Feeling down, depressed, or hopeless: not at all service: No Meds Home Medications and Allergies Home Medications Medication Instructions Recorded Confirmed Type escitalopram oxalate 20 mg tablet 20 mg PO DAILY 02/25/22 07/10/22 History gabapentin 300 mg capsule 300 mg PO QAM 02/25/22 07/10/22 History insulin glargine 100 unit/mL (3 40 unit subcut HS 04/29/22 07/10/22 History mL) subcutaneous pen enxyjjmz-miw-nwtfe acid 0.4 1 tab PO QDAY 04/29/22 07/10/22 History mg-lycopene 300 mcg-lutein 250 mcg tablet ([employer] Senior) tacrolimus 0.5 mg capsule, 0.5 mg PO QDAY 04/29/22 07/10/22 History immediate-release tacrolimus 1 mg capsule, 1 mg PO HS 04/29/22 07/10/22 History immediate-release amlodipine 5 mg tablet 5 mg PO BID 06/23/22 07/10/22 History carvedilol 25 mg tablet 12.5 mg PO BID 06/23/22 07/10/22 History insulin lispro 100 unit/mL 15 - 20 unit subcut TID 06/23/22 07/10/22 History subcutaneous pen tamsulosin 0.4 mg capsule 0.4 mg PO DAILY 06/23/22 07/10/22 History aspirin 81 mg tablet,delayed 81 mg PO QDAY 07/01/22 07/10/22 History release gabapentin 300 mg capsule 600 mg PO QHS 07/10/22 07/10/22 History mycophenolate mofetil 250 mg 750 mg PO BID 07/10/22 07/10/22 History capsule pantoprazole 40 mg tablet,delayed 40 mg PO DAILY 07/10/22 07/10/22 History release rosuvastatin 10 mg tablet 10 mg PO HS 07/10/22 07/10/22 History Allergies Allergy/AdvReac Type Severity Reaction Status Date / Time No Known Drug Allergies Allergy Verified 07/10/22 12:59 Exam Const: Vital Signs, click to edit/add: Vital Signs - 24 hr 07/10/22 12:59 07/10/22 13:16 07/10/22 13:20 Temperature 98.2 F Pulse Rate Pulse Rate [Pulse Oximeter] 68 Respiratory Rate 22 Blood Pressure Blood Pressure [Le ft Upper Arm] 139/73 Pulse Oximetry 87 L 92 95 Oxygen Delivery Me thod Room Air Nasal Cannula Oxygen Flow Rate 2.5 07/10/22 13:19 07/10/22 13:30 07/10/22 13:54 Temperature Pulse Rate 67 71 75 Pulse Rate [Pulse Oximeter] Respiratory Rate Blood Pressure 151/94 H Blood Pressure [Le ft Upper Arm] Pulse Oximetry 92 94 95 Oxygen Delivery Me thod Nasal Cannula Nasal Cannula Nasal Cannula Oxygen Flow Rate 2.5 2.5 2.5 07/10/22 14:00 07/10/22 14:02 07/10/22 14:03 Temperature Pulse Rate 72 70 68 Pulse Rate [Pulse Oximeter] Respiratory Rate Blood Pressure 145/96 H Blood Pressure [Le ft Upper Arm] Pulse Oximetry 94 95 95 Oxygen Delivery Me thod Nasal Cannula Nasal Cannula Nasal Cannula Oxygen Flow Rate 2.5 2.5 2.5 07/10/22 14:30 07/10/22 14:32 07/10/22 15:06 Temperature Pulse Rate 71 70 74 Pulse Rate [Pulse Oximeter] Respiratory Rate Blood Pressure 143/86 H Blood Pressure [Le ft Upper Arm] Pulse Oximetry 94 94 88 Oxygen Delivery Me thod Nasal Cannula Nasal Cannula Nasal Cannula Oxygen Flow Rate 2.5 2.5 2.5 07/10/22 15:07 Temperature Pulse Rate 69 Pulse Rate [Pulse Oximeter] Respiratory Rate Blood Pressure 128/81 Blood Pressure [Le ft Upper Arm] Pulse Oximetry 91 Oxygen Delivery Me thod Nasal Cannula Oxygen Flow Rate 2.5 Hospitalist - H&P: Result Labs Labs: Short CBC 07/10/22 Range/Units 13:50 WBC 4.56 (4.50-11.00) K/uL Hgb 11.4 L (13.5-17.5) gm/dL Hct 36.4 L (37.0-53.0) % Plt Count 128 L (140-440) K/uL BMP 07/10/22 13:50 Sodium 137 Potassium 4.8 Chloride 112 Carbon Dioxide 22 BUN 22 Creatinine 2.2 H Glucose 314 H Calcium 9.0 Liver Function 07/10/22 Range/Units 13:50 Total Bilirubin 1.4 (0.1-1.5) mg/dL Direct Bilirubin 0.2 (0.0-0.5) mg/dL AST 13 (12-35) U/L ALT 12 (4-50) U/L Alkaline Phosphatase 114 (40-150) U/L Albumin 2.9 L (3.3-5.0) g/dL Assessment and Plan Assessment and plan (1) DOVE (dyspnea on exertion): Problem comment: w/weakness. multifactorial: -acute on chronic diastolic heart failure with preserved EF. -immunocompromised with long hauler COVID presentation -sedentary lifestyle with morbid obesity, adult failure to thrive, poor compliance, multiple medical problems Status: Acute (2) Acute diastolic CHF (congestive heart failure), NYHA class 3: Problem comment: I suspect his dyspnea is related to congestive failure more than infectious process. He has been COVID positive since 06/02/2022, antigen negative tonight. He has no leukocytosis, fever. Negative procalcitonin. His dyspnea on exertion is acute on chronic. His BNP is 66 times higher than it was just at the end of last month. I'm going to give him 80 mg of IV Lasix to evaluate response to his dyspnea. I have ordered a repeat echo, understanding that he just had one in May however the clinical deterioration supports getting follow-up echo. I have added a troponin to his ER labs. I will closely monitor his potassium, input and output, daily weight, oxygen demand. Status: Suspected (3) Bilateral pneumonia: Problem comment: More supported by imaging than his clinical presentation. His procalcitonin is reassuring. No leukocytosis. COVID antigen negative. However given his lack of reserve and multiple medical problems, I will cover with broad-spectrum antibiotics. Blood cultures are pending. RT is aware. Continue oxygen support. Status: Acute (4) Diarrhea: Problem comment: cdiff pending Status: Acute (5) Skin ulcer of buttock: Problem comment: wound care; blood sugar management -he has been seen at our wound care clinic for previous wounds on his stump. I think these gluteal fold wounds are new. Status: Acute (6) Insulin dependent diabetes mellitus: Problem comment: 8.8 on 06/15/22; compliance with insulin is in question. SSI/bedside glucose checks. I've taken both reported doses of basal and bolus insulin and started at 50% of that dose with sliding scale, expecting adjustments will be needed. Status: Chronic (7) Permanent atrial fibrillation: Problem comment: some question regarding compliance with warfarin, suitability for DOAC. starting renal dose eliquis. rate controlled on admission. on coreg, amlodipine. dose adjust as needed. on telemetry. Status: Acute (8) COVID-19 in immunocompromised patient: Problem comment: Positive on June 02. Status post dexamethasone, Baricitnib, oxygen support. Two previous admissions in May. Antigen negative tonight. Status: Acute (9) Hypertension: Problem comment: continue home meds Status: Acute (10) Renal transplant recipient: Problem comment: 2013, follows with the [facility] transplant Team, intermittently. On CellCept and tacrolimus. Indication was end-stage diabetic nephropathy. Status: Chronic (11) Below-knee amputation of left lower extremity: Problem comment: November of 2005. 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 Wears a prosthesis. superficial skin breakdown known on the lateral side of his stump. Will keep this clean and dry and his prosthesis sleeve and unit off. Status: Chronic (12) Major depression: Problem comment: Continue Lexapro Status: Chronic (13) Chronic kidney disease: Problem comment: s/p renal transplant. baseline creat 2.0-2.1 Status: Chronic (14) General patient noncompliance: Status: Chronic (15) Hyperparathyroidism due to renal insufficiency: Problem comment: will recheck PTH, known to be elevated at last admission ([id number]) - outpatient workup/followup. Status: Chronic (16) Thyroid nodule: Problem comment: 1.4 cm left thyroid nodule. noted at last hospitalization. needs outpatient workup. Status: Acute (17) Pancreatic lesion: Problem comment: 1.7 cm pancreatic uncinate process lesion. EUS wit biopsy done in January 2021. Status: Acute (18) CHAENLL (obstructive sleep apnea): Problem comment: no known diagnosis; likely dx; follow Status: Acute
[2022-07-10 15:46] LABS: Lactate Sepsis 2 Hour 0.8 mmol/L (0.5-1.9)
--- NOTE | 2022-07-10 15:50 | CRLHL7_ITS ---
For Patients: As a result of the Century Cures Act, medical imaging exams and procedure reports are released immediately into your electronic medical record. You may view this report before your referring provider. If you have questions, please contact your health care provider. HISTORY: Weakness. Shortness of breath. Pneumonia. TECHNIQUE: Noncontrast chest CT. COMPARISON: 07/10/2022. FINDINGS: No thoracic aortic aneurysm. Coronary artery calcifications are present compatible with coronary artery disease. Trace pericardial fluid. Increased number of small nonspecific mediastinal and bilateral hilar lymph nodes. - Bilateral lung infiltrates. Small bilateral pleural effusions. No pneumothorax. - Limited evaluation of the upper abdomen demonstrates cholelithiasis. - Degenerative changes of the spine likely with diffuse idiopathic skeletal hyperostosis changes. IMPRESSION: 1. Bilateral lung infiltrates compatible with pneumonia. 2. Small bilateral pleural effusions. 3. Increased number of small mediastinal and hilar lymph nodes which could be reactive. Dictated by Mello Ruiz MD @ 07/10/2022 4:40:03 PM Please note that all CT scans at this facility use dose modulation, iterative reconstruction, and/or weight-based dosing when appropriate to reduce radiation dose to as low as reasonably achievable. Dictated by: Mello Ruiz MD @ 07/10/2022 16:40:13 (Electronically Signed)
[2022-07-10 16:25] LABS: Procalcitonin* 0.12 ng/mL (<0.50)
[2022-07-10 16:30] LABS: Appearance Urine Cloudy (Clear); Bilirubin Urine Negative (Negative); Blood Urine 2+ (Negative); Color Urine Yellow (Yellow); Glucose Urine 2+ (Negative); Ketones Urine Trace (Negative); Leukocyte Esterase Urine 3+ (Negative); Nitrite Urine Negative (Negative); Protein Urine 3+ (Negative)
[2022-07-10 16:52] LABS: Bacteria Urine Few
[2022-07-10 17:16] LABS: Ionized Calcium* 1.11 mmol/L (1.11-1.30)
[2022-07-10 17:26] LABS: INR 1.18 (0.91-1.10); Prothrombin Time 15.7 Seconds
[2022-07-10 17:37] LABS: PTH Intact* 213 pg/mL (15-65)
[2022-07-10] MEDS: AZITHROMYCIN 250 MG TABLET 500 MG PO (17:37)
[2022-07-10] MEDS: FUROSEMIDE 10 MG/ML inj 80 MG IVP (17:38)
[2022-07-10 17:39] LABS: Troponin I* < 0.01 ng/mL (0.01-0.04)
[2022-07-10 17:43] LABS: Hemoglobin A1C* 8.53 % (0-5.6)
[2022-07-10] MEDS: PIPERACILLIN/TAZOBACTAM 3.375 GM in 0.9 % SODIUM CHLORIDE Mini-bag 100 ML IVPB ×2 (17:52→23:27)
[2022-07-10] MEDS: IPRAT-ALBUT 0.5-2.5 MG/3 ML NEB 1 NEB IH ×2 (18:37→23:25)
--- NOTE | 2022-07-10 18:52 | PC.NURSE ---
Pt. up to floor at 1630. IV in left forearm patent, saline locked. SCD on left leg only. left leg amputated. Right arm restricted extremity. Pt. on 1 L NC sating at 90-93%. Pt. on Tele.
[2022-07-10] MEDS: AMLODIPINE 5 MG TABLET PO (20:32)
[2022-07-10] MEDS: mycophenolate mofetiL 250 MG CAPSULE 750 MG PO (20:32)
[2022-07-10] MEDS: GABAPENTIN 300 MG CAPSULE 600 MG PO (20:32)
[2022-07-10] MEDS: carvediloL 25 MG TABLET 12.5 MG PO (20:32)
[2022-07-10] MEDS: LACTOBACILLUS ACIDOPHILUS 1 TABLET 2 TAB PO (20:34)
[2022-07-10] MEDS: ROSUVASTATIN CALCIUM 10 MG TABLET PO (20:35)
[2022-07-10] MEDS: APIXABAN 5 MG TABLET 2.5 MG PO (20:35)
[2022-07-10] MEDS: BUDESONIDE 0.5 MG/2ML NEB NEB (20:39)
[2022-07-10] MEDS: SODIUM CHLORIDE 0.9 % (FLUSH) 10 ML SYRINGE IVF (20:47)
[2022-07-10] MEDS: TACROLIMUS 0.5 MG CAPSULE 1 MG PO (21:19)
[2022-07-10] MEDS: LOPERAMIDE HCL 2 MG CAPSULE 4 MG PO (21:21)
[2022-07-11] VITALS (9 sets, daily range): BP systolic 101–139; BP diastolic 49–74; PULSE 62–79; RESP 16–20; TEMP 36.4–36.8; O2SAT 91–93
--- NOTE | 2022-07-11 04:44 | PC.NURSE ---
Pt rested well this night. Afebrile. VS unremarkable. Pt came to floor with open sores on coccyx. Mepilex placed. Oriented x3. Reporting zero pain. Pt voiding via Gibbs. Right arm restriction due to fistulas.
[2022-07-11] MEDS: IPRAT-ALBUT 0.5-2.5 MG/3 ML NEB 1 NEB IH (05:31)
[2022-07-11] MEDS: PIPERACILLIN/TAZOBACTAM 3.375 GM in 0.9 % SODIUM CHLORIDE Mini-bag 100 ML IVPB ×4 (05:31→23:26)
[2022-07-11 06:43] LABS: HCO3 VBG 25 mmol/L (21-28); Ionized Calcium* 1.25 mmol/L (1.11-1.30); PCO2 VBG 51 mmHG (40-50); PO2 VBG 52.8 mmHG (25-47); pH VBG 7.299 (7.32-7.43)
[2022-07-11 06:55] LABS: Hematocrit 33.8 % (37.0-53.0); Hemoglobin* 10.3 gm/dL (13.5-17.5); Mean Corpuscular HGB Conc 31 gm/dL (32-36); Mean Corpuscular Hemoglobin 27 pg (26-34); Mean Corpuscular Volume 88 fL (80-100); Platelet Count* 124 K/uL (140-440); Red Blood Count 3.84 m/uL (4.30-5.90); White Blood Count* 4.29 K/uL (4.50-11.00)
[2022-07-11 07:09] LABS: Slide Review Reflex No
[2022-07-11 07:11] LABS: Albumin* 2.5 g/dL (3.3-5.0); Chloride* 113 mmol/L (96-114); Potassium* 4.2 mmol/L (3.6-5.1); Sodium* 140 mmol/L (135-149)
[2022-07-11 07:13] LABS: Creatinine* 2.5 mg/dL (0.5-1.5); Est. Creatinine Clearance* 29.32; Estimated Glomerular Filt Rate 27 ml/min
[2022-07-11 07:14] LABS: Blood Urea Nitrogen* 24 mg/dL (7-30); Carbon Dioxide* 25 mmol/L (20-32); Glucose* 113 mg/dL (60-115)
[2022-07-11 07:15] LABS: Calcium* 8.3 mg/dL (8.4-10.6); Magnesium* 1.7 mg/dL (1.5-2.6); Uric Acid* 5.2 mg/dL (2.2-8.4)
[2022-07-11 07:17] LABS: C Reactive Protein* 5.8 mg/dL (0.5-1.0)
[2022-07-11 07:26] LABS: Troponin I* 0.02 ng/mL (0.01-0.04)
[2022-07-11 07:31] LABS: Procalcitonin* 0.39 ng/mL (<0.50)
[2022-07-11] MEDS: mycophenolate mofetiL 250 MG CAPSULE 750 MG PO ×2 (09:46→20:55)
[2022-07-11] MEDS: ASPIRIN 81 MG TABLET EC PO (09:46)
[2022-07-11] MEDS: TACROLIMUS 0.5 MG CAPSULE PO (09:46)
[2022-07-11] MEDS: APIXABAN 5 MG TABLET 2.5 MG PO ×2 (09:51→20:56)
[2022-07-11] MEDS: OMEPRAZOLE 20 MG CAPSULE DR 40 MG PO (09:51)
[2022-07-11] MEDS: ESCITALOPRAM 10 MG TABLET 20 MG PO (09:52)
[2022-07-11] MEDS: GABAPENTIN 300 MG CAPSULE PO (09:53)
[2022-07-11] MEDS: LACTOBACILLUS ACIDOPHILUS 1 TABLET 2 TAB PO ×2 (09:53→14:37)
[2022-07-11] MEDS: TORSEMIDE 20 MG TABLET 10 MG PO (09:54)
[2022-07-11] MEDS: TAMSULOSIN HCL 0.4 MG CAPSULE PO (09:54)
[2022-07-11] MEDS: BUDESONIDE 0.5 MG/2ML NEB NEB ×2 (09:55→20:57)
[2022-07-11] MEDS: SODIUM CHLORIDE 0.9 % (FLUSH) 10 ML SYRINGE IVF ×2 (09:55→21:00)
--- NOTE | 2022-07-11 16:07 | PM.IMPN1 ---
Progress Note: A&P Assessment and plan (1) DOVE (dyspnea on exertion): Problem details: w/weakness. multifactorial: -acute on chronic diastolic heart failure with preserved EF. -immunocompromised with long hauler COVID presentation -sedentary lifestyle with morbid obesity, adult failure to thrive, poor compliance, multiple medical problems -physical debility, acute on chronic Status: Acute (2) Acute diastolic CHF (congestive heart failure), NYHA class 3: Problem details: I suspect his dyspnea is related to congestive failure more than infectious process. He has been COVID positive since 06/02/2022, antigen negative tonight. He has no leukocytosis, fever. Negative procalcitonin. His dyspnea on exertion is acute on chronic. His BNP is 66 times higher than it was just at the end of last month. I'm going to give him 80 mg of IV Lasix to evaluate response to his dyspnea. I have ordered a repeat echo, understanding that he just had one in May however the clinical deterioration supports getting follow-up echo. I have added a troponin to his ER labs. I will closely monitor his potassium, input and output, daily weight, oxygen demand. Status: Suspected Assessment and Plan: Await echo resolved. Continue with diuresis efforts for now. (3) Bilateral pneumonia: Problem details: More supported by imaging than his clinical presentation. His procalcitonin is reassuring. No leukocytosis. COVID antigen negative. However given his lack of reserve and multiple medical problems, I will cover with broad-spectrum antibiotics. Blood cultures are pending. RT is aware. Continue oxygen support. Status: Acute Assessment and Plan: It is unlikely that he has a community-acquired pneumonia. More likely he has unresolved radiographic infiltrates from the COVID pneumonia that he recently had. Will recheck procalcitonin level again tomorrow. (4) Diarrhea: Problem details: cdiff pending Status: Acute (5) Skin ulcer of buttock: Problem details: wound care; blood sugar management -he has been seen at our wound care clinic for previous wounds on his stump. I think these gluteal fold wounds are new. Status: Acute (6) Insulin dependent diabetes mellitus: Problem details: 8.8 on 06/15/22; compliance with insulin is in question. SSI/bedside glucose checks. I've taken both reported doses of basal and bolus insulin and started at 50% of that dose with sliding scale, expecting adjustments will be needed. Status: Chronic (7) Permanent atrial fibrillation: Problem details: some question regarding compliance with warfarin, suitability for DOAC. starting renal dose eliquis. rate controlled on admission. on coreg, amlodipine. dose adjust as needed. on telemetry. Status: Acute (8) COVID-19 in immunocompromised patient: Problem details: Positive on June 02. Status post dexamethasone, Baricitnib, oxygen support. Two previous admissions in May. Antigen negative tonight. Status: Acute (9) Hypertension: Problem details: continue home meds Status: Acute Assessment and Plan: Tending toward being hypotensive. Will adjust antihypertensive medications as warranted. (10) Renal transplant recipient: Problem details: 2013, follows with the [facility] transplant Team, intermittently. On CellCept and tacrolimus. Indication was end-stage diabetic nephropathy. Status: Chronic (11) Below-knee amputation of left lower extremity: Problem details: November of 2005. 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 Wears a prosthesis. superficial skin breakdown known on the lateral side of his stump. Will keep this clean and dry and his prosthesis sleeve and unit off. Status: Chronic (12) Major depression: Problem details: Continue Lexapro Status: Chronic (13) Chronic kidney disease: Problem details: s/p renal transplant. baseline creat 2.0-2.1 Status: Chronic (14) General patient noncompliance: Status: Chronic (15) Hyperparathyroidism due to renal insufficiency: Problem details: will recheck PTH, known to be elevated at last admission (489) - outpatient workup/followup. Status: Chronic (16) Thyroid nodule: Problem details: 1.4 cm left thyroid nodule. noted at last hospitalization. needs outpatient workup. Status: Acute (17) Pancreatic lesion: Problem details: 1.7 cm pancreatic uncinate process lesion. EUS wit biopsy done in January 2021. Status: Acute (18) CHANELL (obstructive sleep apnea): Problem details: no known diagnosis; likely dx; follow Status: Acute (19) Acute lower UTI (urinary tract infection): Problem details: Urine culture 07/10/2022: Gram neg so Status: Acute Assessment and Plan: Continue with Zosyn for now. Plan 1. Reviewed with the patient. 2. Answered his questions. 3. Continue to work with physical and occupational therapy. 4. Continue to administer the Zosyn antibiotic for now. 5. Check a procalcitonin level tomorrow. If still normal will stop the azithromycin. 6. Based on his current abilities I am concerned about him returning home at this time. He may require short-term transitional care services in a detention facility. Time Spent With Patient Total time spent: 30 minutes Subjective Time Seen by Provider: 10:00 Date Seen: 07/11/22 Interval history: 72-year-old man with increased weakness. Weakness has been gradual and progressive. He states his girlfriend could not tolerate it anymore and thus had him brought in for further assessment. Patient was unable to manage bowel and urinary incontinence. Girlfriend indicated she was not able to help him with that also. Left [id number] amputation prosthesis was recently modified per the limb Lab shop in [place], [place], due to the prosthesis being to lose previously. Patient states that it has been more difficult for him to fit the prosthesis device since then. Acknowledges dyspnea with exertion. Perhaps a little improved today compared to yesterday. Denies chest heaviness or pressure or tightness. Appetite slowly improving. Acknowledges he is still quite weak. Acknowledges that something needs to improved because he is hardly able to help himself anymore. Exam Narrative: Exam Narrative: Appears comfortable and in no acute distress. Alert, oriented to self, place, time, situation. Articulate, cooperative, friendly. Humorous in a sarcastic fashion. Mood and affect are congruent. Lungs with some end inspiratory rales bibasilarly. No CVA tenderness. Heart tones with irregular rhythm, chronic. Abdomen is obese with active bowel sounds, soft, nontender. With help from the trapezius apparatus on his bed and assist of 1 he is able to transfer from supine to sitting and then transferred to the edge of the bed. He attempts to put his left prosthesis on but needs assist of 1. With standby assist of 1 and the use of his walker and a gait belt he is able to transfer from sitting at the edge of bed to standing at the edge of the bed. No focal motor neurologic deficits. No tremor, asterixis, or ataxia. Chronic wound on buttock. Const: Vital Signs, click to edit/add: Vital Signs - 24 hr 07/10/22 16:12 07/10/22 16:41 07/10/22 16:41 Temperature Pulse Rate 63 Pulse Rate [Left R adial] Respiratory Rate 24 Blood Pressure [Le ft Arm] Pulse Oximetry 92 86 L 86 L Oxygen Delivery Me thod Nasal Cannula Room Air Oxygen Flow Rate 2 07/10/22 16:41 07/10/22 16:45 07/10/22 16:51 Temperature 98.5 F 98.5 F Pulse Rate Pulse Rate [Left R adial] 69 69 Respiratory Rate 22 22 Blood Pressure [Le ft Arm] 133/86 133/86 Pulse Oximetry 86 L 86 L 94 Oxygen Delivery Me thod Room Air Nasal Cannula Oxygen Flow Rate 1 07/10/22 17:06 07/10/22 17:30 07/10/22 17:31 Temperature Pulse Rate 71 Pulse Rate [Left R adial] Respiratory Rate 22 Blood Pressure [Le ft Arm] Pulse Oximetry 91 90 Oxygen Delivery Me thod Nasal Cannula Oxygen Flow Rate 1 07/10/22 17:36 07/10/22 19:00 07/10/22 19:44 Temperature 98.7 F 98.7 F Pulse Rate Pulse Rate [Left R adial] 75 75 Respiratory Rate 20 18 18 Blood Pressure [Le ft Arm] 108/53 L Pulse Oximetry 92 92 92 Oxygen Delivery Me thod Nasal Cannula Room Air Room Air Oxygen Flow Rate 1 1 07/10/22 23:23 07/10/22 23:56 07/10/22 23:56 Temperature 98.1 F Pulse Rate 66 Pulse Rate [Left R adial] 66 Respiratory Rate 16 Blood Pressure [Le ft Arm] 100/61 Pulse Oximetry 91 91 Oxygen Delivery Me thod Nasal Cannula Oxygen Flow Rate 1 07/10/22 23:57 07/11/22 02:49 07/11/22 07:00 Temperature 97.9 F 98.3 F Pulse Rate Pulse Rate [Left R adial] 62 67 Respiratory Rate 18 16 16 Blood Pressure [Le ft Arm] 101/52 L 101/56 L Pulse Oximetry 91 91 91 Oxygen Delivery Me thod Nasal Cannula Nasal Cannula Oxygen Flow Rate 1 1 07/11/22 09:00 07/11/22 09:00 Temperature Pulse Rate Pulse Rate [Left R adial] Respiratory Rate 16 Blood Pressure [Le ft Arm] Pulse Oximetry 92 92 Oxygen Delivery Me thod Nasal Cannula Oxygen Flow Rate 1 Documenting provider has reviewed patient's vital signs: yes Labs Labs: Laboratory Results - last 24 hr 07/10/22 07/10/22 07/10/22 13:50 13:50 13:50 WBC RBC Hgb Hct MCV MCH MCHC Plt Count INR 1.18 H VBG pH VBG pCO2 VBG pO2 VBG HCO3 Sodium Potassium Chloride Carbon Dioxide BUN Creatinine Estimated Creat Clear Estimated GFR Glucose Hemoglobin A1c Uric Acid Calcium Ionized Calcium Floyd 1.11 Magnesium Troponin I < 0.01 L C-Reactive Protein Albumin Procalcitonin 0.12 TSH PTH Intact 213 H Urine Color Urine Appearance Urine pH Ur Specific [place] Urine Protein Urine Glucose (UA) Urine Ketones Urine Blood Urine Nitrite Urine Bilirubin Urine Urobilinogen Ur Leukocyte Esterase Urine RBC Urine WBC Ur Squamous Epith Cells Urine Bacteria 07/10/22 07/10/22 07/10/22 13:50 13:50 16:15 WBC RBC Hgb Hct MCV MCH MCHC Plt Count INR VBG pH VBG pCO2 VBG pO2 VBG HCO3 Sodium Potassium Chloride Carbon Dioxide BUN Creatinine Estimated Creat Clear Estimated GFR Glucose Hemoglobin A1c 8.53 H Uric Acid Calcium Ionized Calcium Floyd Magnesium Troponin I C-Reactive Protein Albumin Procalcitonin TSH 9.480 H PTH Intact Urine Color Yellow Urine Appearance Cloudy A Urine pH 7.0 Ur Specific [place] 1.020 Urine Protein 3+ A Urine Glucose (UA) 2+ A Urine Ketones Trace A Urine Blood 2+ A Urine Nitrite Negative Urine Bilirubin Negative Urine Urobilinogen 1.0 Ur Leukocyte Esterase 3+ A Urine RBC 10-25 A Urine WBC 2-5 Ur Squamous Epith Cells None Urine Bacteria Few A 07/11/22 07/11/22 07/11/22 06:25 06:30 06:30 WBC 4.29 L RBC 3.84 L Hgb 10.3 L Hct 33.8 L MCV 88 MCH 27 MCHC 31 L Plt Count 124 L INR VBG pH 7.299 L VBG pCO2 51 H VBG pO2 52.8 H VBG HCO3 25 Sodium 140 Potassium 4.2 Chloride 113 Carbon Dioxide 25 BUN 24 Creatinine 2.5 H Estimated Creat Clear 29.32 Estimated GFR 27 Glucose 113 Hemoglobin A1c Uric Acid 5.2 Calcium 8.3 L Ionized Calcium Floyd 1.25 Magnesium 1.7 Troponin I 0.02 C-Reactive Protein 5.8 H Albumin 2.5 L Procalcitonin 0.39 TSH PTH Intact Urine Color Urine Appearance Urine pH Ur Specific [place] Urine Protein Urine Glucose (UA) Urine Ketones Urine Blood Urine Nitrite Urine Bilirubin Urine Urobilinogen Ur Leukocyte Esterase Urine RBC Urine WBC Ur Squamous Epith Cells Urine Bacteria
[2022-07-11] MEDS: AZITHROMYCIN 250 MG TABLET 500 MG PO (18:15)
[2022-07-11] MEDS: TACROLIMUS 0.5 MG CAPSULE 1 MG PO (20:56)
[2022-07-11] MEDS: carvediloL 25 MG TABLET 12.5 MG PO (20:56)
[2022-07-11] MEDS: GABAPENTIN 300 MG CAPSULE 600 MG PO (20:57)
[2022-07-11] MEDS: ROSUVASTATIN CALCIUM 10 MG TABLET PO (20:57)
[2022-07-12] VITALS (10 sets, daily range): BP systolic 117–133; BP diastolic 61–82; PULSE 63–89; RESP 18–27; TEMP 36.1–36.9; O2SAT 92–96
--- NOTE | 2022-07-12 04:43 | PC.NURSE ---
Pt rested well this night. VSS. Remained on 2L NC all night to maintain Sats in the ow 90s. Pt reporting zero pain. Turn and repo only . Pt voiding via Gibbs. Pleasant and cooperative.
[2022-07-12] MEDS: PIPERACILLIN/TAZOBACTAM 3.375 GM in 0.9 % SODIUM CHLORIDE Mini-bag 100 ML IVPB ×4 (05:54→23:45)
[2022-07-12] MEDS: IPRAT-ALBUT 0.5-2.5 MG/3 ML NEB 1 NEB IH ×4 (05:54→23:46)
[2022-07-12 06:16] LABS: HCO3 VBG 25 mmol/L (21-28); Lactate* 0.5 mmol/L (0.5-1.9); PCO2 VBG 51 mmHG (40-50); PO2 VBG 58.8 mmHG (25-47); pH VBG 7.293 (7.32-7.43)
[2022-07-12 06:18] LABS: Hematocrit 34.7 % (37.0-53.0); Hemoglobin* 10.4 gm/dL (13.5-17.5); Mean Corpuscular HGB Conc 30 gm/dL (32-36); Mean Corpuscular Hemoglobin 27 pg (26-34); Mean Corpuscular Volume 89 fL (80-100); Platelet Count* 135 K/uL (140-440); Red Blood Count 3.91 m/uL (4.30-5.90); White Blood Count* 4.29 K/uL (4.50-11.00)
[2022-07-12 06:20] LABS: Slide Review Reflex No
[2022-07-12 06:41] LABS: Albumin* 2.6 g/dL (3.3-5.0); Chloride* 114 mmol/L (96-114); Sodium* 141 mmol/L (135-149)
[2022-07-12 06:42] LABS: Potassium* 4.5 mmol/L (3.6-5.1)
[2022-07-12 06:44] LABS: Alanine Aminotransferase* 9 U/L (4-50); Alkaline Phosphatase* 80 U/L (40-150); Aspartate Amino Transferase* 12 U/L (12-35); Bilirubin Total* 0.8 mg/dL (0.1-1.5); Blood Urea Nitrogen* 27 mg/dL (7-30); Carbon Dioxide* 25 mmol/L (20-32); Creatinine* 2.8 mg/dL (0.5-1.5); Est. Creatinine Clearance* 26.17; Estimated Glomerular Filt Rate 23 ml/min; Total Protein* 5.5 g/dL (6.0-8.3)
[2022-07-12 06:45] LABS: Calcium* 8.1 mg/dL (8.4-10.6); Glucose* 151 mg/dL (60-115); Magnesium* 1.7 mg/dL (1.5-2.6); Phosphorus* 4.7 mg/dL (2.5-4.5)
[2022-07-12 06:47] LABS: C Reactive Protein* 6.1 mg/dL (0.5-1.0)
[2022-07-12 06:53] LABS: NT Pro B Type NatriureticPept* 5200 PG/mL (0-125)
[2022-07-12 07:00] LABS: Procalcitonin* 0.42 ng/mL (<0.50)
[2022-07-12] MEDS: AMLODIPINE 5 MG TABLET PO (09:06)
[2022-07-12] MEDS: TORSEMIDE 20 MG TABLET 10 MG PO (09:06)
[2022-07-12] MEDS: LACTOBACILLUS ACIDOPHILUS 1 TABLET 2 TAB PO ×3 (09:06→17:59)
[2022-07-12] MEDS: carvediloL 25 MG TABLET 12.5 MG PO ×2 (09:07→21:58)
[2022-07-12] MEDS: GABAPENTIN 300 MG CAPSULE PO (09:07)
[2022-07-12] MEDS: OMEPRAZOLE 20 MG CAPSULE DR 40 MG PO (09:08)
[2022-07-12] MEDS: ESCITALOPRAM 10 MG TABLET 20 MG PO (09:08)
[2022-07-12] MEDS: TAMSULOSIN HCL 0.4 MG CAPSULE PO (09:08)
[2022-07-12] MEDS: APIXABAN 5 MG TABLET 2.5 MG PO ×2 (09:08→21:56)
[2022-07-12] MEDS: ASPIRIN 81 MG TABLET EC PO (09:09)
[2022-07-12] MEDS: mycophenolate mofetiL 250 MG CAPSULE 750 MG PO ×2 (09:11→22:01)
[2022-07-12] MEDS: SODIUM CHLORIDE 0.9 % (FLUSH) 10 ML SYRINGE IVF (09:12)
[2022-07-12] MEDS: TACROLIMUS 0.5 MG CAPSULE PO (09:12)
[2022-07-12] MEDS: BUDESONIDE 0.5 MG/2ML NEB NEB ×2 (10:01→21:57)
--- NOTE | 2022-07-12 14:15 | NUTR.NU ---
RDN attempted x3 to visit with patient regarding diabetes and offer diet education, however patient was not available on all attempts. Will attempt to visit at a later date.
--- NOTE | 2022-07-12 17:16 | PM.IMPN1 ---
Progress Note: A&P Assessment and plan (1) DOVE (dyspnea on exertion): Problem details: w/weakness. multifactorial: -acute on chronic diastolic heart failure with preserved EF. -immunocompromised with long hauler COVID presentation -sedentary lifestyle with morbid obesity, adult failure to thrive, poor compliance, multiple medical problems -physical debility, acute on chronic Status: Acute (2) Acute diastolic CHF (congestive heart failure), NYHA class 3: Problem details: I suspect his dyspnea is related to congestive failure more than infectious process. He has been COVID positive since 06/02/2022, antigen negative tonight. He has no leukocytosis, fever. Negative procalcitonin. His dyspnea on exertion is acute on chronic. His BNP is 66 times higher than it was just at the end of last month. I'm going to give him 80 mg of IV Lasix to evaluate response to his dyspnea. I have ordered a repeat echo, understanding that he just had one in May however the clinical deterioration supports getting follow-up echo. I have added a troponin to his ER labs. I will closely monitor his potassium, input and output, daily weight, oxygen demand. Status: Suspected (3) Bilateral pneumonia: Problem details: More supported by imaging than his clinical presentation. His procalcitonin is reassuring. No leukocytosis. COVID antigen negative. However given his lack of reserve and multiple medical problems, I will cover with broad-spectrum antibiotics. Blood cultures are pending. RT is aware. Continue oxygen support. Status: Acute (4) Diarrhea: Problem details: cdiff pending Status: Acute (5) Skin ulcer of buttock: Problem details: wound care; blood sugar management -he has been seen at our wound care clinic for previous wounds on his stump. I think these gluteal fold wounds are new. Status: Acute (6) Insulin dependent diabetes mellitus: Problem details: 8.8 on 06/15/22; compliance with insulin is in question. SSI/bedside glucose checks. I've taken both reported doses of basal and bolus insulin and started at 50% of that dose with sliding scale, expecting adjustments will be needed. Status: Chronic (7) Permanent atrial fibrillation: Status: Acute (8) COVID-19 in immunocompromised patient: Problem details: Positive on June 02. Status post dexamethasone, Baricitnib, oxygen support. Two previous admissions in May. Antigen negative tonight. Status: Acute (9) Hypertension: Problem details: continue home meds Status: Acute (10) Renal transplant recipient: Problem details: 2013, follows with the [facility] transplant Team, intermittently. On CellCept and tacrolimus. Indication was end-stage diabetic nephropathy. Status: Chronic (11) Below-knee amputation of left lower extremity: Problem details: November of 2005. 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 Wears a prosthesis. superficial skin breakdown known on the lateral side of his stump. Will keep this clean and dry and his prosthesis sleeve and unit off. Status: Chronic (12) Major depression: Problem details: Continue Lexapro Status: Chronic (13) Chronic kidney disease: Problem details: s/p renal transplant. baseline creat 2.0-2.1 Status: Chronic (14) General patient noncompliance: Status: Chronic (15) Hyperparathyroidism due to renal insufficiency: Problem details: will recheck PTH, known to be elevated at last admission (489) - outpatient workup/followup. Status: Chronic (16) Thyroid nodule: Problem details: 1.4 cm left thyroid nodule. noted at last hospitalization. needs outpatient workup. Status: Acute (17) Pancreatic lesion: Problem details: 1.7 cm pancreatic uncinate process lesion. EUS wit biopsy done in January 2021. Status: Acute (18) CHANELL (obstructive sleep apnea): Problem details: no known diagnosis; likely dx; follow Status: Acute (19) Acute lower UTI (urinary tract infection): Problem details: Urine culture 07/10/2022: Gram neg so Status: Acute (20) Acute kidney injury: Status: Acute Plan 1. I remain concerned for him. I review this with him and his girlfriend. 2. Will continue the same regimen for now. 3. Recheck labs tomorrow. Consider holding the diuretic tomorrow and given IV fluids if his creatinine and BUN continue to rise. 4. Had been trying to reach out to the [facility] to see if they can assist with wound assessment and recommendations given that they follow in the outpatient setting. 5. Patient and girlfriend are agreeable to transitional care services when it is time for him to be discharged from the hospital. I have asked manager social to continue to assist us with discharge disposition planning. 6. Continue to work with PT and OT. Time Spent With Patient Total time spent: 40 minutes Subjective Time Seen by Provider: 10:00 Date Seen: 07/12/22 Interval history: 72-year-old man with increased weakness. Weakness has been gradual and progressive. He states his girlfriend could not tolerate it anymore and thus had him brought in for further assessment. Patient was unable to manage bowel and urinary incontinence. Girlfriend indicated she was not able to help him with that also. Left [id number] amputation prosthesis was recently modified per the limb Lab shop in [place], [place], due to the prosthesis being to lose previously. Patient states that it has been more difficult for him to fit the prosthesis device since then. Acknowledges dyspnea with exertion. Perhaps a little improved today compared to yesterday. Denies chest heaviness or pressure or tightness. Appetite slowly improving. Acknowledges he is still quite weak. Acknowledges that something needs to improved because he is hardly able to help himself anymore. Exam Narrative: Exam Narrative: Appears comfortable no acute distress. Alert and oriented to self, place, time, situation. Articulate, cooperative, friendly. Mood and affect are congruent. Overall generally still weak. Requiring a lot of support with any transfers. Lungs with scattered rales and rhonchi without wheezing. Heart tones with regular rhythm, normal S1-S2. Abdomen obese with active bowel sounds, soft, nontender. Extremities with edema right more so than left. Still has open wounds which are chronic and appear clean. No obvious focal motor neurologic deficits. Weight today 140 kg compared to 141 kg yesterday and 140.2 kg on admission. Const: Vital Signs, click to edit/add: Vital Signs - 24 hr 07/11/22 19:15 07/11/22 23:44 07/11/22 23:46 Temperature 97.6 F 98 F Pulse Rate Pulse Rate [Left R adial] 67 63 63 Respiratory Rate 16 16 16 Blood Pressure [Le ft Arm] 102/49 L 139/63 Pulse Oximetry 93 92 Oxygen Delivery Me thod Nasal Cannula Nasal Cannula Oxygen Flow Rate 2 2 07/12/22 01:46 07/12/22 01:46 07/12/22 01:48 Temperature Pulse Rate 64 Pulse Rate [Left R adial] Respiratory Rate Blood Pressure [Le ft Arm] Pulse Oximetry 92 92 Oxygen Delivery Me thod Nasal Cannula Oxygen Flow Rate 2 07/12/22 02:50 07/12/22 08:18 07/12/22 08:18 Temperature 98.4 F 97.6 F Pulse Rate Pulse Rate [Left R adial] 72 89 Respiratory Rate 18 20 Blood Pressure [Le ft Arm] 128/65 133/65 Pulse Oximetry 93 95 95 Oxygen Delivery Me thod Nasal Cannula Nasal Cannula Oxygen Flow Rate 2 2 07/12/22 08:18 07/12/22 07:11 07/12/22 13:37 Temperature 97.0 F L Pulse Rate 75 Pulse Rate [Left R adial] 71 Respiratory Rate 18 Blood Pressure [Le ft Arm] 117/61 Pulse Oximetry 95 94 Oxygen Delivery Me thod Nasal Cannula Nasal Cannula Oxygen Flow Rate 2 2 07/12/22 15:00 07/12/22 15:00 Temperature 98.3 F Pulse Rate Pulse Rate [Left R adial] 72 72 Respiratory Rate 27 H 27 H Blood Pressure [Le ft Arm] 131/75 Pulse Oximetry 94 Oxygen Delivery Me thod Nasal Cannula Oxygen Flow Rate 2 Documenting provider has reviewed patient's vital signs: yes Labs Labs: Laboratory Results - last 24 hr 07/12/22 07/12/22 07/12/22 05:36 05:36 05:36 WBC 4.29 L RBC 3.91 L Hgb 10.4 L Hct 34.7 L MCV 89 MCH 27 MCHC 30 L Plt Count 135 L VBG pH 7.293 L VBG pCO2 51 H VBG pO2 58.8 H VBG HCO3 25 Sodium 141 Potassium 4.5 Chloride 114 Carbon Dioxide 25 BUN 27 Creatinine 2.8 H Estimated Creat Clear 26.17 Estimated GFR 23 Glucose 151 H Lactate 0.5 Calcium 8.1 L Phosphorus 4.7 H Magnesium 1.7 Total Bilirubin 0.8 AST 12 ALT 9 Alkaline Phosphatase 80 C-Reactive Protein 6.1 H NT-Pro-B Natriuret Pep 5200 H Total Protein 5.5 L Albumin 2.6 L Procalcitonin 0.42 TSH 07/12/22 05:36 WBC RBC Hgb Hct MCV MCH MCHC Plt Count VBG pH VBG pCO2 VBG pO2 VBG HCO3 Sodium Potassium Chloride Carbon Dioxide BUN Creatinine Estimated Creat Clear Estimated GFR Glucose Lactate Calcium Phosphorus Magnesium Total Bilirubin AST ALT Alkaline Phosphatase C-Reactive Protein NT-Pro-B Natriuret Pep Total Protein Albumin Procalcitonin TSH 8.280 H
[2022-07-12 19:37] LABS: HCO3 VBG 25 mmol/L (21-28); PCO2 VBG 49 mmHG (40-50); PO2 VBG 39.7 mmHG (25-47); pH VBG 7.318 (7.32-7.43)
[2022-07-12] MEDS: GABAPENTIN 300 MG CAPSULE 600 MG PO (21:58)
[2022-07-12] MEDS: TACROLIMUS 0.5 MG CAPSULE 1 MG PO (22:02)
[2022-07-12] MEDS: ROSUVASTATIN CALCIUM 10 MG TABLET PO (22:02)
--- NOTE | 2022-07-12 23:38 | PC.NURSE ---
Nursing Care Hours: [id number] Pt this shift taking a nap in bed upon arrival. Startled pt when newspaper writer said pt name, pt then asked where the small man was who was looking over the bed. Vp [employer] reoriented pt and pt alert and oriented but fatigued. Tele shows afib with nvr. Bounding radial pulse, No JVD noted, BP 131/75 and 122/82. Bilat 2+ pitting edema. Coarse crackles throughout, wet cough, not productive. Scheduled nebs given. Encouraged use of IS, 1000 reached x3. Per pt, day nurse already changed dressings to lower extremities. Dressing CDI. Coccyx/bilat glute bandage changed, Medihoney applied with new Mepliex on right and left glute. L glute has two open sores, 3cm, and 2cm diameter. R glute has one open sore about 1 cm diameter. Gibbs draining clear light sy urine. Post dinner BS was 63, high protein snack given. 2L supplemental oxygen increased to 3L while eating d/t saturation dropping to 89%.
[2022-07-13] VITALS (10 sets, daily range): BP systolic 127–135; BP diastolic 59–75; PULSE 70–82; RESP 18–24; TEMP 36.4–37.6; O2SAT 86–95
--- NOTE | 2022-07-13 05:10 | PC.NURSE ---
[id number] Pt slept well during night, denies any pain, pt refused repositioning during night, slept semi fowlers/supine all shift, educated pt on wound healing, pressure ulcer prevention and importance of moving, pt acknowledged he understood but still declined repositioning. required 2LPM O2 to maintain sats >90%
[2022-07-13] MEDS: LEVOTHYROXINE 25 MCG TABLET PO (06:13)
[2022-07-13] MEDS: PIPERACILLIN/TAZOBACTAM 3.375 GM in 0.9 % SODIUM CHLORIDE Mini-bag 100 ML IVPB (06:13)
[2022-07-13] MEDS: IPRAT-ALBUT 0.5-2.5 MG/3 ML NEB 1 NEB IH ×4 (06:13→23:33)
[2022-07-13] MEDS: SODIUM CHLORIDE 0.9 % (FLUSH) 10 ML SYRINGE IVF ×3 (06:14→20:58)
[2022-07-13 06:59] LABS: Albumin* 2.6 g/dL (3.3-5.0); Chloride* 113 mmol/L (96-114); Potassium* 4.5 mmol/L (3.6-5.1); Sodium* 142 mmol/L (135-149)
[2022-07-13 07:02] LABS: Blood Urea Nitrogen* 27 mg/dL (7-30); Carbon Dioxide* 25 mmol/L (20-32); Creatinine* 2.7 mg/dL (0.5-1.5); Est. Creatinine Clearance* 27.14; Estimated Glomerular Filt Rate 24 ml/min; Glucose* 144 mg/dL (60-115); Phosphorus* 4.2 mg/dL (2.5-4.5)
[2022-07-13 07:03] LABS: Calcium* 8.3 mg/dL (8.4-10.6)
[2022-07-13] MEDS: mycophenolate mofetiL 250 MG CAPSULE 750 MG PO ×2 (09:14→20:51)
[2022-07-13] MEDS: TACROLIMUS 0.5 MG CAPSULE PO (09:16)
[2022-07-13] MEDS: LACTOBACILLUS ACIDOPHILUS 1 TABLET 2 TAB PO ×3 (09:17→17:44)
[2022-07-13] MEDS: OMEPRAZOLE 20 MG CAPSULE DR 40 MG PO (09:18)
[2022-07-13] MEDS: ESCITALOPRAM 10 MG TABLET 20 MG PO (09:18)
[2022-07-13] MEDS: TAMSULOSIN HCL 0.4 MG CAPSULE PO (09:19)
[2022-07-13] MEDS: TORSEMIDE 20 MG TABLET 10 MG PO (09:19)
[2022-07-13] MEDS: APIXABAN 5 MG TABLET 2.5 MG PO ×2 (09:21→20:53)
[2022-07-13] MEDS: ASPIRIN 81 MG TABLET EC PO (09:21)
[2022-07-13] MEDS: carvediloL 25 MG TABLET 12.5 MG PO ×2 (09:22→20:54)
[2022-07-13] MEDS: AMLODIPINE 5 MG TABLET PO (09:23)
[2022-07-13] MEDS: GABAPENTIN 300 MG CAPSULE PO (09:23)
[2022-07-13] MEDS: BUDESONIDE 0.5 MG/2ML NEB NEB ×2 (09:38→20:50)
[2022-07-13] MEDS: AMOXICILLIN/CLAVULANATE 875 mg/125 mg TABLET PO ×2 (12:11→17:43)
--- NOTE | 2022-07-13 13:09 | RESP.RT ---
Started Aerobika this AM, as pt is having a difficult time clearing secretions. RN reports he did spontaneously cough up some sputum. Does well with Aerobika with coaching and encouragement. Needs to do every 2 hours. BBS coarse Rhonch. He is very somnolent. Girlfriend reports this is how he is. There may be a sleep apnea component. He has had a sleep study in the past, per pt. he did not follow up on results. Will try an autopap on him tonight. He states he is willing to try it. He has a heavy wilde, and this may prove difficult to get a good seal with out in house masks.
--- NOTE | 2022-07-13 15:02 | PM.IMPN1 ---
Progress Note: A&P Assessment and plan (1) DOVE (dyspnea on exertion): Problem details: w/weakness. multifactorial: -acute on chronic diastolic heart failure with preserved EF. -immunocompromised with long hauler COVID presentation -sedentary lifestyle with morbid obesity, adult failure to thrive, poor compliance, multiple medical problems -physical debility, acute on chronic Status: Acute (2) Acute diastolic CHF (congestive heart failure), NYHA class 3: Problem details: I suspect his dyspnea is related to congestive failure more than infectious process. He has been COVID positive since 06/02/2022, antigen negative tonight. He has no leukocytosis, fever. Negative procalcitonin. His dyspnea on exertion is acute on chronic. His BNP is 66 times higher than it was just at the end of last month. I'm going to give him 80 mg of IV Lasix to evaluate response to his dyspnea. I have ordered a repeat echo, understanding that he just had one in May however the clinical deterioration supports getting follow-up echo. I have added a troponin to his ER labs. I will closely monitor his potassium, input and output, daily weight, oxygen demand. Status: Suspected (3) Bilateral pneumonia: Problem details: More supported by imaging than his clinical presentation - pulmonary infiltrates albeit status post COVID. His procalcitonin is reassuring. No leukocytosis. COVID antigen negative. However, given his lack of reserve and multiple medical problems, he was initially covered with broad-spectrum antibiotics. Blood cultures negative to date. RT is assisting. Continue oxygen support. Status: Acute (4) Diarrhea: Problem details: c. diff pending. Diarrhea resolved. Status: Acute (5) Skin ulcer of buttock: Problem details: wound care; blood sugar management -he has been seen at our wound care clinic for previous wounds on his stump. I think these gluteal fold wounds are new. Status: Acute (6) Insulin dependent diabetes mellitus: Problem details: 8.8 on 06/15/22; compliance with insulin is in question. SSI/bedside glucose checks. I've taken both reported doses of basal and bolus insulin and started at 50% of that dose with sliding scale, expecting adjustments will be needed. Status: Chronic (7) Permanent atrial fibrillation: Status: Acute (8) COVID-19 in immunocompromised patient: Problem details: Positive on June 02. Status post dexamethasone, Baricitnib, oxygen support. Two previous admissions in May. Antigen negative tonight. Status: Acute (9) Hypertension: Problem details: continue home meds Status: Acute (10) Renal transplant recipient: Problem details: 2013, follows with the [facility] transplant Team, intermittently. On CellCept and tacrolimus. Indication was end-stage diabetic nephropathy. Status: Chronic (11) Below-knee amputation of left lower extremity: Problem details: November of 2005. 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 Wears a prosthesis. superficial skin breakdown known on the lateral side of his stump. Will keep this clean and dry and his prosthesis sleeve and unit off. Status: Chronic (12) Major depression: Problem details: Continue Lexapro Status: Chronic (13) Chronic kidney disease: Problem details: s/p renal transplant. baseline creat 2.0-2.1 Status: Chronic (14) General patient noncompliance: Status: Chronic (15) Hyperparathyroidism due to renal insufficiency: Problem details: will recheck PTH, known to be elevated at last admission (489) - outpatient workup/followup. Status: Chronic (16) Thyroid nodule: Problem details: 1.4 cm left thyroid nodule. noted at last hospitalization. needs outpatient workup. Status: Acute (17) Pancreatic lesion: Problem details: 1.7 cm pancreatic uncinate process lesion. EUS wit biopsy done in January 2021. Status: Acute (18) CHANELL (obstructive sleep apnea): Problem details: Remote history of diagnosis made in sleep study assessment.; likely dx; follow Status: Acute Assessment and Plan: 1. Patient agreeable to making an appointment for a formal polysomnographic sleep study evaluation and consider appropriate intervention. (19) Acute lower UTI (urinary tract infection): Problem details: Urine culture 07/10/2022: Gram neg so, Proteus Status: Acute Assessment and Plan: 1. Stop IV antibiotics 2. Switch to oral antibiotics, Augmentin 875/125, 1 tab p.o. b.i.d. (20) Acute kidney injury: Problem details: Current creatinine 2.7-2.8 Status: Acute Plan 1. Today's serum creatinine is 2.7, yesterday's was 2.8. 2. Continue with current diuresis efforts. 3. Recheck labs tomorrow morning. 4. Patient will need transitional care services when he is ready for discharge. Work with manager social media. 5. Answered patient's and 's questions to their satisfaction. They are agreeable with above stated plans or recommendations. Time Spent With Patient Total time spent: 30 Subjective Time Seen by Provider: 10:30 Date Seen: 07/13/22 Interval history: Hospital day 4. 72-year-old man with increased weakness. Weakness has been gradual and progressive. He states his girlfriend could not tolerate it anymore and thus had him brought in for further assessment. Patient was unable to manage bowel and urinary incontinence. Girlfriend indicated she was not able to help him with that also. Left [id number] amputation prosthesis was recently modified per the [facility] [facility] in [place], [place], due to the prosthesis being too lose previously. Patient states that it has been more difficult for him to fit the prosthesis device since then. Acknowledges dyspnea with exertion. Minimal improvement at best since yesterday. Denies chest heaviness or pressure or tightness. Appetite slowly improving. Acknowledges he is still quite weak. Acknowledges that something needs to improved because he is hardly able to help himself anymore. Today acknowledges daytime hypersomnolence, not an acute problem, which has been evolving over the last several months. Exam Narrative: Exam Narrative: No acute distress, appears comfortable. Falls asleep during our conversation today. He states this is not new. His girlfriend who is present today also indicates this is not new. This has been evolving over the last several months. Patient acknowledges that historically he has been told that he has obstructive sleep apnea but he has not had any follow-up for this or treatment for this for a number of years. Alert, oriented to self, place, time, situation. Articulate, friendly, cooperative. Mood and affect are congruent. Midline trachea, normal thyroid. Lungs actually are clear to auscultation. Heart tones with regular rhythm, distant tones. Abdomen with active bowel sounds, soft, nontender. Bilateral lower extremity edema right more so than left. Left side is where he has a gnugn-elf-[id number] amputation. Multiple chronic wounds, stable. Const: Vital Signs, click to edit/add: Vital Signs - 24 hr 07/12/22 17:00 07/12/22 17:00 07/12/22 17:00 Temperature Pulse Rate 64 Pulse Rate [Apical ] Pulse Rate [Left R adial] Respiratory Rate 27 H Blood Pressure [Le ft Arm] Pulse Oximetry 94 94 Oxygen Delivery Me thod Nasal Cannula Oxygen Flow Rate 2 07/12/22 19:00 07/12/22 23:00 07/12/22 23:00 Temperature 97.8 F Pulse Rate Pulse Rate [Apical ] Pulse Rate [Left R adial] 63 68 68 Respiratory Rate 27 H 24 22 Blood Pressure [Le ft Arm] 122/82 125/62 Pulse Oximetry 96 95 Oxygen Delivery Me thod Nasal Cannula Nasal Cannula Oxygen Flow Rate 3 2 07/13/22 01:00 07/13/22 01:00 07/13/22 01:00 Temperature Pulse Rate 77 Pulse Rate [Apical ] Pulse Rate [Left R adial] Respiratory Rate 22 Blood Pressure [Le ft Arm] Pulse Oximetry 95 95 Oxygen Delivery Me thod Nasal Cannula Oxygen Flow Rate 3 07/13/22 02:36 07/13/22 07:55 07/13/22 08:00 Temperature 97.8 F Pulse Rate 81 Pulse Rate [Apical ] 71 Pulse Rate [Left R adial] 72 Respiratory Rate 24 21 Blood Pressure [Le ft Arm] 134/70 Pulse Oximetry 95 Oxygen Delivery Me thod Nasal Cannula Oxygen Flow Rate 2 07/13/22 09:00 07/13/22 09:00 07/13/22 10:30 Temperature 97.7 F Pulse Rate Pulse Rate [Apical ] 70 Pulse Rate [Left R adial] Respiratory Rate 21 22 Blood Pressure [Le ft Arm] 127/75 Pulse Oximetry 95 95 86 L Oxygen Delivery Me thod Nasal Cannula Nasal Cannula Oxygen Flow Rate 2 2 07/13/22 12:10 Temperature 97.6 F Pulse Rate Pulse Rate [Apical ] 75 Pulse Rate [Left R adial] Respiratory Rate 20 Blood Pressure [Le ft Arm] 133/67 Pulse Oximetry 92 Oxygen Delivery Me thod Nasal Cannula Oxygen Flow Rate 2 Documenting provider has reviewed patient's vital signs: yes Labs Labs: Laboratory Results - last 24 hr 07/12/22 07/13/22 19:34 05:37 VBG pH 7.318 L VBG pCO2 49 VBG pO2 39.7 VBG HCO3 25 Sodium 142 Potassium 4.5 Chloride 113 Carbon Dioxide 25 BUN 27 Creatinine 2.7 H Estimated Creat Clear 27.14 Estimated GFR 24 Glucose 144 H Calcium 8.3 L Phosphorus 4.2 Albumin 2.6 L
--- NOTE | 2022-07-13 16:08 | PC.SOCIAL ---
Discharge planning- Met with pt and pt's girlfriend in pt's room. Pt is aware that he will go to a SNF for ST rehab. Pt does not want to go to [facility] in [place]. Pt would like to be as close to [place] as possible. Pt is aware that there is some difficulty in locating open beds at SNF's. Contacted the following SNF's. 1. [facility]- phone call to Catrina in admissions. Catrina states there are open beds. Faxed referral to [phone]. 2. [facility]- Phone call to Admissions. There is an open bed. Faxed referral to [phone]. 3. [facility]- Faxed referral to [phone]. Also emailed referral to Sean at [email or web address].
[2022-07-13 17:31] LABS: HCO3 VBG 25 mmol/L (21-28); PCO2 VBG 43 mmHG (40-50); PO2 VBG 49.5 mmHG (25-47); pH VBG 7.373 (7.32-7.43)
--- NOTE | 2022-07-13 18:13 | PC.NURSE ---
Patient is alert but confused at times. Has wheezes bilaterally throughout during inhalation, base lung sounds have course crackles and are diminished. Productive cough with brown/rust thick sputum. O2 sats decreased to 83% room air. O2 sats 92-96% 2L O2. Attempted to put prosthetic leg on to left extremity continues to not fit due to swelling. Patient wearing compression sleeve from home to reduce swelling to stump. Denies pain. Mepilex dressings to left stump, right carmona, and coccyx CDI. Order updated by MD for dressing changes to be completed Tuesday, Tuesday, and Tuesday. Dressing change orders placed in front of chart.
[2022-07-13] MEDS: TACROLIMUS 0.5 MG CAPSULE 1 MG PO (20:52)
[2022-07-13] MEDS: GABAPENTIN 300 MG CAPSULE 600 MG PO (20:53)
[2022-07-13] MEDS: ROSUVASTATIN CALCIUM 10 MG TABLET PO (21:03)
--- NOTE | 2022-07-13 23:05 | PC.NURSE ---
Patient is alert and oriented but has a bit of confusion at times. Bilateral wheezing and course crackles heard on auscultation, bases are diminished. Pt. has productive cough w/thick sputum. O2 sats decreased to 83% room air. O2 sats 92-96% 2L O2. Used ceiling lift to transfer back to bed from chair, pt. tolerated activity well. Pt. wearing compression sleeve from home on left amputated leg to reduce swelling to stump. Denies pain. Mepilex dressings to left stump, right carmona, and coccyx CDI. Dressing changes are to be completed Tuesday, Tuesday, and Tuesday. Dressing change orders placed in front of pt. chart.?
[2022-07-14 03:00] VITALS: BP 143/84; PULSE 76; RESP 18; TEMP 36.9; O2SAT 97
[2022-07-14] MEDS: IPRAT-ALBUT 0.5-2.5 MG/3 ML NEB 1 NEB IH ×3 (06:08→18:32)
[2022-07-14] MEDS: LEVOTHYROXINE 25 MCG TABLET PO (06:08)
[2022-07-14 06:18] LABS: HCO3 VBG 25 mmol/L (21-28); Lactate* 0.4 mmol/L (0.5-1.9); PCO2 VBG 45 mmHG (40-50); pH VBG 7.349 (7.32-7.43)
--- NOTE | 2022-07-14 06:27 | PC.NURSE ---
Addendum entered by Harjeet Gerardo RN 07/14/22 06:56: Unable to get stool sample for lab. investigation. Original Note: Shift note: Pt continue on 2L of oxygen. Refused CPAP and reposition. O2 level has been well above 90% throughout the shift. No pain reported by patient. Gibbs draining well.
[2022-07-14 06:44] LABS: Chloride* 113 mmol/L (96-114); Potassium* 4.3 mmol/L (3.6-5.1); Sodium* 139 mmol/L (135-149)
[2022-07-14 06:47] LABS: Carbon Dioxide* 24 mmol/L (20-32); Creatinine* 2.3 mg/dL (0.5-1.5); Est. Creatinine Clearance* 31.86; Estimated Glomerular Filt Rate 29 ml/min
[2022-07-14 06:48] LABS: Blood Urea Nitrogen* 27 mg/dL (7-30); Calcium* 8.4 mg/dL (8.4-10.6); Glucose* 130 mg/dL (60-115); Magnesium* 1.7 mg/dL (1.5-2.6)
[2022-07-14 06:51] LABS: Iron* 15 ug/dL (49-181)
[2022-07-14 06:57] LABS: Hematocrit 32.4 % (37.0-53.0); Immature Reticulocyte Fraction 20.9 % (2.3-13.4); Mean Corpuscular HGB Conc 31 gm/dL (32-36); Mean Corpuscular Hemoglobin 27 pg (26-34); Mean Corpuscular Volume 87 fL (80-100); Platelet Count* 143 K/uL (140-440); Red Blood Count 3.73 m/uL (4.30-5.90); Reticulocyte Hemoglobin Equivi 20.5 pg (29.0-35.0); Reticulocyte Percent 1.5 % (0.5-2.0); Reticulocytes Absolute 0.06 # (0.03-0.08); White Blood Count* 4.67 K/uL (4.50-11.00)
[2022-07-14 07:00] VITALS: BP 138/74; PULSE 74; RESP 20; TEMP 36.8; O2SAT 92
[2022-07-14 07:00] LABS: Percent Iron Saturation 8 % (20-50); Total Iron Binding Capacity 176 ug/dL (261-462)
[2022-07-14 07:07] LABS: Slide Review Reflex No
[2022-07-14] MEDS: LACTOBACILLUS ACIDOPHILUS 1 TABLET 2 TAB PO ×3 (09:22→18:57)
[2022-07-14] MEDS: AMOXICILLIN/CLAVULANATE 875 mg/125 mg TABLET PO ×2 (09:22→18:31)
[2022-07-14] MEDS: APIXABAN 5 MG TABLET 2.5 MG PO ×2 (09:23→21:26)
[2022-07-14] MEDS: TORSEMIDE 20 MG TABLET PO (09:23)
[2022-07-14] MEDS: ESCITALOPRAM 10 MG TABLET 20 MG PO (09:23)
[2022-07-14] MEDS: ASPIRIN 81 MG TABLET EC PO (09:23)
[2022-07-14] MEDS: TAMSULOSIN HCL 0.4 MG CAPSULE PO (09:24)
[2022-07-14] MEDS: GABAPENTIN 300 MG CAPSULE PO (09:24)
[2022-07-14] MEDS: carvediloL 25 MG TABLET 12.5 MG PO ×2 (09:24→21:25)
[2022-07-14] MEDS: AMLODIPINE 5 MG TABLET PO (09:24)
[2022-07-14] MEDS: TACROLIMUS 0.5 MG CAPSULE PO (09:25)
[2022-07-14] MEDS: SODIUM CHLORIDE 0.9 % (FLUSH) 10 ML SYRINGE IVF ×2 (09:25→21:31)
[2022-07-14] MEDS: OMEPRAZOLE 20 MG CAPSULE DR 40 MG PO (09:25)
[2022-07-14] MEDS: mycophenolate mofetiL 250 MG CAPSULE 750 MG PO ×2 (09:25→21:27)
[2022-07-14 11:00] VITALS: PULSE 69; RESP 20; O2SAT 95
--- NOTE | 2022-07-14 11:39 | P.IMPN_ITS ---
Progress Note: A&P Assessment and plan (1) DOVE (dyspnea on exertion): Problem details: w/weakness. multifactorial: -acute on chronic diastolic heart failure with preserved EF. -immunocompromised with long hauler COVID presentation -sedentary lifestyle with morbid obesity, adult failure to thrive, poor compliance, multiple medical problems -physical debility, acute on chronic -acute UTI, with history of recurrent UTIs Status: Acute (2) Acute diastolic CHF (congestive heart failure), NYHA class 3: Problem details: I suspect his dyspnea is related to congestive failure more than infectious proc ess. He has been COVID positive since 06/02/2022, antigen negative on admission. He has no leukocytosis, fever. Negative procalcitonin. His dyspnea on exertion is acute on chronic. His BNP is 66 times higher than it was just at the end of last month. I'm going to give him 80 mg of IV Lasix to evaluate response to his dyspnea. I have ordered a repeat echo, understanding that he just had one in May however the clinical deterioration supports getting follow-up echo. I have added a troponin to his ER labs. I will closely monitor his potassium, input and output, daily weight, oxygen demand. Status: Suspected Assessment and Plan: His weights have been gradually rising. On presentation he weighed roughly 140.5 kg. Current weight 144 kg. We initially gave him furosemide 80 mg IV and then switched him to oral torsemide 10 mg daily. Today I am increasing the dose of torsemide to 20 mg daily. His serum creatinine at baseline is around 2.1. On presentation it was 2.4. Subsequently nghia as high as 2.8. Today his serum creatinine is 2.3. Will continue to monitor his serum creatinine (3) Bilateral pneumonia: Problem details: More supported by imaging than his clinical presentation - pulmonary infiltrates albeit status post COVID. His procalcitonin is reassuring. No leukocytosis. COVID antigen negative. However, given his lack of reserve and multiple medical problems, he was initially covered with broad-spectrum antibiotics. Blood cultures negative to date. RT is assisting. Continue oxygen support. Status: Acute Assessment and Plan: I doubt he has a pneumonia at this time. More likely radiographic findings are residual from previous COVID infection. (4) Diarrhea: Problem details: Diarrhea resolved. Unable to obtain a C diff sample. Status: Acute (5) Skin ulcer of buttock: Problem details: wound care; blood sugar management -he has been seen at our wound care clinic for previous wounds on his stump and buttock. Status: Acute Assessment and Plan: We have conferred with the wound clinic. We have been following and adhering to their treatment regimen. (6) Insulin dependent diabetes mellitus: Problem details: 8.8 on 06/15/22; compliance with insulin is in question. SSI/bedside glucose checks. I've taken both reported doses of basal and bolus insulin and started at 50% of that dose with sliding scale, expecting adjustments will be needed. Status: Chronic Assessment and Plan: Blood sugars fairly well controlled at this time. Continue to monitor and adjust as needed. (7) Permanent atrial fibrillation: Status: Acute (8) COVID-19 in immunocompromised patient: Problem details: Positive on June 02. Status post dexamethasone, Baricitnib, oxygen support. Two previous admissions in May. Antigen negative tonight. Status: Acute (9) Hypertension: Problem details: continue home meds Status: Acute (10) Renal transplant recipient: Problem details: 2013, follows with the [facility] transplant Team, intermittently. On CellCept and tacrolimus. Indication was end-stage diabetic nephropathy. Status: Chronic (11) Below-knee amputation of left lower extremity: Problem details: November of 2005. 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 Wears a prosthesis. superficial skin breakdown known on the lateral side of his stump. Will keep this clean and dry and his prosthesis sleeve and unit off. Status: Chronic Assessment and Plan: Still has Charcot foot on the unaffected right foot. (12) Major depression: Problem details: Continue Lexapro Status: Chronic (13) Chronic kidney disease: Problem details: s/p renal transplant. baseline creat 2.0-2.1 Status: Chronic (14) General patient noncompliance: Status: Chronic (15) Hyperparathyroidism due to renal insufficiency: Problem details: will recheck PTH, known to be elevated at last admission (489) - outpatient workup/followup. Status: Chronic (16) Thyroid nodule: Problem details: 1.4 cm left thyroid nodule. noted at last hospitalization. needs outpatient workup. Status: Acute (17) Pancreatic lesion: Problem details: 1.7 cm pancreatic uncinate process lesion. EUS wit biopsy done in January 2021. Status: Acute (18) CHANELL (obstructive sleep apnea): Problem details: Remote history of diagnosis made in sleep study assessment.; likely dx; follow Status: Acute Assessment and Plan: Attempted to use our auto titrating CPAP machine here in the hospital but was unable to tolerate it due to a sense of claustrophobia. Still warrants outpatient sleep study polysomnogram, which will need to be arranged by primary care physician. (19) Acute lower UTI (urinary tract infection): Problem details: Urine culture 07/10/2022: Gram neg so, Proteus Status: Acute Assessment and Plan: S switch from IV Proteus which the organism is sensitive to, to oral Augmentin 875/1251 tab p.o. b.i.d.. Likely requires full 7 days of this still. (20) Acute kidney injury: Problem details: Baseline serum creatinine of around 2.1. Today's values 2.3. Status: Acute Assessment and Plan: Continue monitor. Plan 1. Patient currently not in a state to return to his home. 2. We are looking for a transitional care service for him before he can return home assuming that he improves his physical abilities. [employer] is assisting in this effort. Working closely with patient and his girlfriend. Time Spent With Patient Total time spent: 40 minutes Subjective Time Seen by Provider: 08:00 Date Seen: 07/14/22 Interval history: Hospital day 5. 72-year-old man with increased weakness. Weakness has been gradual and progressive. He states his girlfriend could not tolerate it anymore and thus had him brought in for further assessment. Patient was unable to manage bowel and urinary incontinence. Girlfriend indicated she was not able to help him with that also. Had 2 recent hospitalizations due to COVID-19 and complications associated there with. Has not been able to return to usual function at home with persistent weakness. Status post left [id number] amputation and has a prosthesis, which was recently modified per the [facility] [facility] in [place], [place], due to the prosthesis being too lose previously. Patient states that it has been more difficult for him to fit the prosthesis device since then. Acknowledges continued dyspnea with exertion. Minimal improvement only since yesterday. Denies chest heaviness or pressure or tightness. Appetite slowly improving. Acknowledges he is still quite weak. Acknowledges that something needs to improve and change because he is hardly able to help himself anymore in his home setting. Daytime hypersomnolence, not an acute problem, is improved today compared to yesterday but in general has been worsening over the last several months. Historically has been diagnosed with obstructive sleep apnea and previously had a CPAP machine. He never did tolerated. He has not used his CPAP machine for literally years. We attempted to use our auto titration CPAP machine here with him yesterday, any use it for short period of time but he felt claustrophobic with the mask and thus he stopped using it. Interestingly today he does not feel as somnolent as he did yesterday. Exam Narrative: Exam Narrative: No acute distress. Appears comfortable. Alert, oriented to self, place, time, situation. Friendly, cooperative, articulate. Mood and affect are congruent. Vision and hearing are grossly normal. Full neck with tight oral aperture. Lungs relatively clear. Heart tones with regular rhythm. Abdomen is obese with active bowel sounds, soft, nontender. Extremities still with edema more so on the right than on the left. No obvious focal motor neurologic deficits. More of a global sense of weakness. Const: Vital Signs, click to edit/add: Vital Signs - 24 hr 07/13/22 12:10 07/13/22 15:00 07/13/22 15:00 Temperature 97.6 F 98.6 F Pulse Rate [Apical ] 75 82 Pulse Rate [Left R adial] Respiratory Rate 20 22 22 Blood Pressure [Le ft Arm] 133/67 134/70 Pulse Oximetry 92 88 Oxygen Delivery Me thod Nasal Cannula Room Air Oxygen Flow Rate 2 07/13/22 19:00 07/13/22 23:00 07/13/22 23:00 Temperature 99.6 F Pulse Rate [Apical ] Pulse Rate [Left R adial] 76 Respiratory Rate 20 18 Blood Pressure [Le ft Arm] 128/59 L Pulse Oximetry 95 94 94 Oxygen Delivery Me thod Nasal Cannula Nasal Cannula Oxygen Flow Rate 2 2 07/13/22 23:00 07/13/22 23:00 07/14/22 03:00 Temperature 98 F 98.4 F Pulse Rate [Apical ] 82 75 76 Pulse Rate [Left R adial] 76 Respiratory Rate 18 18 18 Blood Pressure [Le ft Arm] 135/74 143/84 H Pulse Oximetry 94 97 Oxygen Delivery Me thod Nasal Cannula Nasal Cannula Oxygen Flow Rate 2 2 07/14/22 07:00 07/14/22 07:00 07/14/22 07:00 Temperature Pulse Rate [Apical ] Pulse Rate [Left R adial] Respiratory Rate 20 20 Blood Pressure [Le ft Arm] Pulse Oximetry 92 92 Oxygen Delivery Me thod Nasal Cannula Oxygen Flow Rate 2 07/14/22 07:00 07/14/22 11:00 Temperature 98.2 F Pulse Rate [Apical ] Pulse Rate [Left R adial] 74 69 Respiratory Rate 20 20 Blood Pressure [Le ft Arm] 138/74 Pulse Oximetry 92 95 Oxygen Delivery Me thod Nasal Cannula Nasal Cannula Oxygen Flow Rate 2 2 Documenting provider has reviewed patient's vital signs: yes Labs Labs: Laboratory Results - last 24 hr 07/13/22 07/14/22 07/14/22 17:27 05:34 05:34 WBC 4.67 RBC 3.73 L Hgb 10.0 L Hct 32.4 L MCV 87 MCH 27 MCHC 31 L Plt Count 143 Absolute Retic 0.06 Percent Retic 1.5 Immature Retic Fraction 20.9 H Retic Hgb Equivalent 20.5 L VBG pH 7.373 VBG pCO2 43 VBG pO2 49.5 H VBG HCO3 25 Sodium 139 Potassium 4.3 Chloride 113 Carbon Dioxide 24 BUN 27 Creatinine 2.3 H Estimated Creat Clear 31.86 Estimated GFR 29 Glucose 130 H Lactate Calcium 8.4 Magnesium 1.7 Iron TIBC % Saturation Ferritin 07/14/22 07/14/22 07/14/22 05:34 05:34 05:34 WBC RBC Hgb Hct MCV MCH MCHC Plt Count Absolute Retic Percent Retic Immature Retic Fraction Retic Hgb Equivalent VBG pH 7.349 VBG pCO2 45 VBG pO2 62.0 H VBG HCO3 25 Sodium Potassium Chloride Carbon Dioxide BUN Creatinine Estimated Creat Clear Estimated GFR Glucose Lactate 0.4 L Calcium Magnesium Iron 15 L TIBC 176 L % Saturation 8 L Ferritin 184.0
[2022-07-14] MEDS: CLOTRIMAZOLE 1 % CREAM 1 APPLIC TOPICAL (14:00)
[2022-07-14] MEDS: TRIAMCINOLONE ACETONIDE CREAM 0.1 % 1 APPLIC TOPICAL (14:00)
--- NOTE | 2022-07-14 14:27 | PC.SOCIAL ---
Discharge planning- Received a phone call from Catrina in admissions at [facility]. Catrina has accepted pt for admission for Tuesday07/16/22. Catrina states that pt will have to go into a room that is shared. Catrina states that there was recently Covid in the building so pt should be made aware of this. This worker will discuss with pt and return a call to Catrina. Met with pt and pt's girlfriend in pt's room. Informed pt that [facility] has accepted him for admission. Informed pt that pt will be in a shared room and informed pt that the facility recently had Covid in the facility and they want pt to be aware of this. Pt states that he will not accept the room as he does not want to share a room with anyone. Pt additionally states that he does not want to go to a facility with Covid as he is still getting over Covid from a month ago. This worker informed that any facility could potentially have Covid even after he admits. Pt states he understands but hopes if he is in a private room then there is less of a chance of him getting Covid. Informed pt that bed availability is low at any SNF in the area and right now [facility] is the only facility that has an opening. Informed Pt that this worker also sent pt's information to [facility], but this worker has not heard back yet. Pt stated that he has been to [facility] in the past and he does not want to go there again. This worker will call [facility] in [place] to see if there are any openings. This worker was able to find out that [facility] in [place] does not have any openings. Discussed with MD about current situation. MD went into room and discussed with pt and pt's girlfriend. Pt decided that he will accept and go to [facility]. Provided an update to Charge Nurse (Rola). Charge nurse will set the transport for Tuesday around 11am with the non-emergency ambulance. Provided charge nurse with the cover sheet for discharge paperwork to be sent to [facility] on Tuesday. Made a phone call back to Catrina in Admissions at [facility]. Informed that pt was skeptical to go into a shared room, but pt has agreed to go to [facility] Informed Catrina that discharge will occur around 11am and pt will be transported by the non-emergency ambulance. Informed Catrina that Christelle Porter will be the only Neighborhood Planner at [facility] on Tuesday. Catrina called this worker back and informed that she got the approval to place pt in a private room and bill medicare. The only stipulation is if they are low on beds pt may potentially have to get a roommate. This worker provided an update to pt and he was grateful.
[2022-07-14 15:00] VITALS: BP 156/77; PULSE 72; RESP 22; TEMP 36.8; O2SAT 93
--- NOTE | 2022-07-14 15:13 | PC.SOCIAL ---
Completed preadmission screening for pt to admit to [facility]. Confirmation #[id number]. Faxed preadmission screening to [facility].
--- NOTE | 2022-07-14 15:50 | PC.NURSE ---
Addendum entered by Lakia Orozco RN 07/14/22 15:56: Gibbs patent and draining. Size G tubi-risk control consultant placed on left leg for compression while prosthetic sleeve is off. Original Note: Pt pleasant and cooperative while being flat and fatigued. Falls alseep in chair while in room doing cares. Pt continues to need 2L O2 nasal canula as well as continues to refuse use of CPAP. Pt states the mask on that machine make me feel like I have a hockey mask on and I can't sleep like that. Wound care performed as ordered. Encourgaged repositioning often. ROHO pillow placed on chair in room. Pt agreed to be positioned on right side after dressing changes in bed.
[2022-07-14 19:00] VITALS: BP 155/84; PULSE 87; RESP 22; TEMP 36.4; O2SAT 93
--- NOTE | 2022-07-14 19:36 | PC.NURSE ---
Nursing Care Hours: [id number] Pt this shift dosing off throughout shift. Held conversation with jingle writer after dinner. Alert and oriented x4. Gibbs patent. Bandage on coccyx changed, wound care done per pt request d/t discomfort. Bilat legs elevated, turned and repositioned x2. Tolerating regular diet. 2L nasal cannula.
[2022-07-14] MEDS: GABAPENTIN 300 MG CAPSULE 600 MG PO (21:25)
[2022-07-14] MEDS: TACROLIMUS 0.5 MG CAPSULE 1 MG PO (21:26)
[2022-07-14] MEDS: ROSUVASTATIN CALCIUM 10 MG TABLET PO (21:31)
[2022-07-14] MEDS: BUDESONIDE 0.5 MG/2ML NEB NEB (21:32)
[2022-07-14 23:00] VITALS: BP 130/77; PULSE 79; RESP 20; TEMP 37.2; O2SAT 94
[2022-07-15 03:00] VITALS: BP 136/72; PULSE 72; RESP 20; TEMP 36.8; O2SAT 94
[2022-07-15] MEDS: IPRAT-ALBUT 0.5-2.5 MG/3 ML NEB 1 NEB IH ×4 (05:12→23:50)
[2022-07-15] MEDS: LEVOTHYROXINE 25 MCG TABLET PO (05:12)
[2022-07-15 06:11] LABS: HCO3 VBG 25 mmol/L (21-28); PCO2 VBG 42 mmHG (40-50); pH VBG 7.383 (7.32-7.43)
--- NOTE | 2022-07-15 06:18 | PC.NURSE ---
-: pt occasionally compliant with cares, verbalizes frustration with being woke for VS and repos. Needs encouragement with aerobika, refused scheduled duoneb at midnight, stated he just wanted to sleep. Pt on 2L O2 via NC. Mepi to right foot and thigh CDI.?Bilat LE elevated. ?
[2022-07-15 06:23] LABS: Hematocrit 32.1 % (37.0-53.0); Hemoglobin* 9.9 gm/dL (13.5-17.5); Mean Corpuscular HGB Conc 31 gm/dL (32-36); Mean Corpuscular Hemoglobin 27 pg (26-34); Mean Corpuscular Volume 86 fL (80-100); Platelet Count* 156 K/uL (140-440); Red Blood Count 3.73 m/uL (4.30-5.90); White Blood Count* 4.91 K/uL (4.50-11.00)
[2022-07-15 06:28] LABS: Slide Review Reflex No
[2022-07-15 06:30] LABS: Chloride* 114 mmol/L (96-114); Potassium* 3.8 mmol/L (3.6-5.1); Sodium* 140 mmol/L (135-149)
[2022-07-15 06:33] LABS: Creatinine* 2.1 mg/dL (0.5-1.5); Estimated Glomerular Filt Rate 33 ml/min
[2022-07-15 06:34] LABS: Blood Urea Nitrogen* 27 mg/dL (7-30); Calcium* 8.8 mg/dL (8.4-10.6); Carbon Dioxide* 24 mmol/L (20-32); Glucose* 143 mg/dL (60-115); Magnesium* 1.6 mg/dL (1.5-2.6); Phosphorus* 3.2 mg/dL (2.5-4.5)
[2022-07-15 06:36] LABS: C Reactive Protein* 7.7 mg/dL (0.5-1.0)
[2022-07-15 06:42] LABS: NT Pro B Type NatriureticPept* 10000 PG/mL (0-125)
[2022-07-15 07:00] VITALS: BP 160/77; PULSE 82; RESP 18; TEMP 37.2; O2SAT 93
--- NOTE | 2022-07-15 08:21 | P.IMPN_ITS ---
Progress Note: A&P Assessment and plan (1) DOVE (dyspnea on exertion): Problem details: - accompanied by weakness, multifactorial: - acute on chronic diastolic heart failure with preserved EF - immunocompromised with long hauler COVID presentation - sedentary lifestyle with morbid obesity, adult failure to thrive, poor compliance, multiple comorbidities - physical deconditioning, acute on chronic - acute UTI, with history of recurrent UTIs - Appreciate input from therapies, will need SNF placement upon discharge Status: Acute (2) Acute diastolic CHF (congestive heart failure), NYHA class 3: Problem details: - more likely related to congestive failure than infectious process: significantly elevated BNP, normal WBC, afebrile, negative procalcitonin. - COVID + 06/02/2022, antigen negative on admission 07/10 is dyspnea on exertion is acute on chronic - repeat TTE exhibits no significant change from previous, troponins negative upon admission - continue diuresis, will given an extra dose of Torsemide today (07/15) given increase in BNP and dyspnea - continue to follow potassium, renal function, input and output, daily weight, oxygen demand Status: Suspected (3) Bilateral pneumonia: Problem details: - supported by imaging > clinical presentation - pulmonary infiltrates (albeit status post COVID), reassuring WBC, procalcitonin - currently on Augmentin for UTI - appreciate input from RT Status: Acute (4) Skin ulcer of buttock: Problem details: - wound care (known patient to our wound care team); blood sugar management Status: Acute (5) Insulin dependent diabetes mellitus: Problem details: - A1C 8.8 on 06/15/22; query outpatient compliance with insulin - continue SSI/bedside glucose checks. Status: Chronic (6) Permanent atrial fibrillation: Problem details: - rate controlled, on Carvedilol. on ASA for anticoagulation Status: Acute (7) COVID-19 in immunocompromised patient: Problem details: - +06/02/22. Status post dexamethasone, Baricitnib, oxygen support. Two previous admissions in May. 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 noted at last hospitalization, outpatient workup Status: Acute (13) CHANELL (obstructive sleep apnea): Problem details: - Remote history of diagnosis made in sleep study assessment, noncompliant with CPAP Status: Acute (14) Acute lower UTI (urinary tract infection): Problem details: - Urine culture 07/10/2022: Proteus, on Augmentin (07/13) per sensitivities Status: Acute (15) Acute kidney injury: Problem details: - baseline outpatient creatinine 2.1 - creatinine at baseline 07/15 (creatinine noted to improve with diuretic use) Status: Acute (16) Chronic kidney disease: Problem details: - s/p renal transplant. baseline creatinine 2.0-2.1 Status: Chronic (17) Edema: Problem details: - multifactorial, possibly iatrogenic given amlodipine use, will stop this and increased patient's carvedilol on 07/15 - anticipate improvement with diuretics and mobility (currently not able to amb ulate, unable to get prosthesis to fit while edematous) Status: Acute (18) Daytime hypersomnia: Problem details: - likely related to untreated CHANELL and comorbidities as noted in #1 above - no significant CO2 retention on VBG - patient tends to improve throughout the day Status: Acute Plan - per above - Apixaban for prophylaxis - plan is for SNF placement 07/16 Subjective Date Seen: 07/15/22 Interval history: 72-year-old male, admitted to the hospital on 07/10/2022 for progressive weakness in the setting of multiple medical comorbidities, recent COVID infection. When I see Latrell this morning, he is laying in bed. Appears tired, states I feel like crap. Specifically notes that his breathing seems harder. Chest x-ray exhibits mild increase in airspace opacities bilaterally. Upon reassessment later this morning, Latrell feels quite a bit better (please note that his initial visit was prior to morning medication administration). He is tolerating supplemental oxygen and p.o. intake. He continues to feel weak and is working with our therapy teams. We have a tentative discharge plan to a SNF in [place] tomorrow morning. Exam Narrative: Exam Narrative: GEN: Resting comfortably, + somnolence but arousable HEENT: Normal external ears, EOMIs bilaterally CV: Rate controlled atrial fibrillation, No concerning murmurs, rubs, or gallops R: Decreased air movement throughout, exam limited by body habitus. No wheezing Ext: Left BKA, 2+ pitting edema Skin: No concerning skin lesions or rashes on exposed skin, skin wound on buttocks not formally examined this morning Neuro: No focal deficits Psych: Appropriate Const: Vital Signs, click to edit/add: Vital Signs - 24 hr 07/14/22 11:00 07/14/22 15:00 07/14/22 15:00 Temperature Pulse Rate [Apical ] Pulse Rate [Left R adial] 69 72 Pulse Rate [Pulse Oximeter] Respiratory Rate 20 22 Blood Pressure [Le ft Arm] Pulse Oximetry 95 93 Oxygen Delivery Me thod Nasal Cannula Oxygen Flow Rate 2 07/14/22 15:00 07/14/22 15:00 07/14/22 19:00 Temperature 98.2 F 97.5 F L Pulse Rate [Apical ] 72 87 Pulse Rate [Left R adial] Pulse Rate [Pulse Oximeter] Respiratory Rate 22 22 22 Blood Pressure [Le ft Arm] 156/77 H 155/84 H Pulse Oximetry 93 93 93 Oxygen Delivery Me thod Nasal Cannula Nasal Cannula Nasal Cannula Oxygen Flow Rate 2 2 2 07/14/22 23:00 07/14/22 23:00 07/14/22 23:00 Temperature Pulse Rate [Apical ] Pulse Rate [Left R adial] Pulse Rate [Pulse Oximeter] 79 Respiratory Rate 20 20 Blood Pressure [Le ft Arm] Pulse Oximetry 94 94 Oxygen Delivery Me thod Nasal Cannula Oxygen Flow Rate 2 07/14/22 23:00 07/15/22 03:00 Temperature 99 F 98.2 F Pulse Rate [Apical ] Pulse Rate [Left R adial] Pulse Rate [Pulse Oximeter] 79 72 Respiratory Rate 20 20 Blood Pressure [Le ft Arm] 130/77 136/72 Pulse Oximetry 94 94 Oxygen Delivery Me thod Nasal Cannula Nasal Cannula Oxygen Flow Rate 2 2 Labs Labs: Laboratory Results - last 24 hr 07/15/22 07/15/22 07/15/22 06:00 06:00 06:00 WBC 4.91 RBC 3.73 L Hgb 9.9 L Hct 32.1 L MCV 86 MCH 27 MCHC 31 L Plt Count 156 VBG pH 7.383 VBG pCO2 42 VBG pO2 79.0 H VBG HCO3 25 Sodium 140 Potassium 3.8 Chloride 114 Carbon Dioxide 24 BUN 27 Creatinine 2.1 H Estimated Creat Clear 34.90 Estimated GFR 33 Glucose 143 H Calcium 8.8 Phosphorus 3.2 Magnesium 1.6 C-Reactive Protein 7.7 H NT-Pro-B Natriuret Pep [address] H
--- NOTE | 2022-07-15 08:50 | CRLHL7_ITS ---
For Patients: As a result of the Century Cures Act, medical imaging exams and procedure reports are released immediately into your electronic medical record. You may view this report before your referring provider. If you have questions, please contact your health care provider. INDICATION: Mama. Follow-up infiltrates. COMPARISON: Chest x-ray and chest CT done 07/10/2022. FINDINGS: A portable semi upright AP view of the chest was obtained. The cardiac silhouette is stable. There are diffuse scratched airspace opacity lungs in the bilaterally, increased from the previous the study. There are small bilateral pleural effusions. Impression: Increased airspace opacity in the lungs bilaterally. Dictated by German Suero MD @ 07/15/2022 9:53:23 AM (Electronically Signed)
[2022-07-15] MEDS: LACTOBACILLUS ACIDOPHILUS 1 TABLET 2 TAB PO ×3 (08:54→17:32)
[2022-07-15] MEDS: AMLODIPINE 5 MG TABLET PO (08:54)
[2022-07-15] MEDS: TACROLIMUS 0.5 MG CAPSULE PO (08:54)
[2022-07-15] MEDS: OMEPRAZOLE 20 MG CAPSULE DR 40 MG PO (08:54)
[2022-07-15] MEDS: AMOXICILLIN/CLAVULANATE 875 mg/125 mg TABLET PO ×2 (08:55→17:31)
[2022-07-15] MEDS: carvediloL 25 MG TABLET 12.5 MG PO (08:55)
[2022-07-15] MEDS: GABAPENTIN 300 MG CAPSULE PO (08:57)
[2022-07-15] MEDS: TORSEMIDE 20 MG TABLET PO (08:57)
[2022-07-15] MEDS: mycophenolate mofetiL 250 MG CAPSULE 750 MG PO ×2 (08:57→20:51)
[2022-07-15] MEDS: ESCITALOPRAM 10 MG TABLET 20 MG PO (08:57)
[2022-07-15] MEDS: TAMSULOSIN HCL 0.4 MG CAPSULE PO (08:57)
[2022-07-15] MEDS: APIXABAN 5 MG TABLET 2.5 MG PO ×2 (08:58→20:48)
[2022-07-15] MEDS: BUDESONIDE 0.5 MG/2ML NEB NEB ×2 (08:59→20:50)
[2022-07-15] MEDS: ASPIRIN 81 MG TABLET EC PO (08:59)
[2022-07-15] MEDS: SODIUM CHLORIDE 0.9 % (FLUSH) 10 ML SYRINGE IVF ×2 (08:59→20:53)
--- NOTE | 2022-07-15 10:25 | PC.NURSE ---
Pt fatigued today, continuing to fall asleep. Pt did attempt to stand with PT today with prosthetic but not successful. 02 assessment while sleeping at 1020, sats dropped to 86% after 5 min on RA. 2L NC turned back on and sats 91-92%. course crackles throughout with some wheezes. pt initially refused neb this AM but after education and discussion pt did agree to do this. verbalized he has been using incentive spirometer and aerobika when nursing is not in room however pt typically falls asleep after nursing leaves. significant edema throughout, elevated legs on pillows at this time. oral diuretic given this AM. BG this AM 163. Gibbs patent and draining with clear yellow urine. will continue to assist with T&R when in bed.
[2022-07-15 11:00] VITALS: BP 147/67; PULSE 72; RESP 20; TEMP 36.7; O2SAT 91
[2022-07-15] MEDS: TORSEMIDE 5 MG TABLET 10 MG PO (14:12)
[2022-07-15 15:00] VITALS: BP 116/72; PULSE 76; RESP 22; TEMP 36.6; O2SAT 93
[2022-07-15 19:00] VITALS: BP 116/54; PULSE 75; PULSE 76; RESP 20; TEMP 36.8; O2SAT 93
[2022-07-15] MEDS: carvediloL 25 MG TABLET PO (20:50)
[2022-07-15] MEDS: GABAPENTIN 300 MG CAPSULE 600 MG PO (20:50)
[2022-07-15] MEDS: TACROLIMUS 0.5 MG CAPSULE 1 MG PO (20:52)
[2022-07-15] MEDS: ROSUVASTATIN CALCIUM 10 MG TABLET PO (20:53)
[2022-07-15 23:00] VITALS: BP 129/63; PULSE 73; RESP 20; TEMP 36.6; O2SAT 91
[2022-07-16 03:00] VITALS: BP 129/65; PULSE 68; RESP 20; TEMP 36.8; O2SAT 93
--- NOTE | 2022-07-16 05:50 | PC.NURSE ---
[id number] Pt slept well during night, denies pain, 2 LPM O2 to maintain sats, Pt compliant with repositioning during night.
[2022-07-16] MEDS: LEVOTHYROXINE 25 MCG TABLET PO (06:11)
[2022-07-16] MEDS: IPRAT-ALBUT 0.5-2.5 MG/3 ML NEB 1 NEB IH (06:11)
[2022-07-16 06:54] LABS: Basophils Absolute Auto 0.03 K/uL (0.00-0.30); Basophils Percent Auto 0.7 % (0.0-3.0); Eosinophils Absolute Auto 0.16 K/uL (0.00-0.50); Eosinophils Percent Auto 3.5 % (0.0-7.0); Hematocrit 32.7 % (37.0-53.0); Hemoglobin* 10.2 gm/dL (13.5-17.5); Immature Granulocytes Abs Auto 0.01 K/uL (0.00-0.30); Immature Granulocytes Pct Auto 0.2 %; Lymphocytes Percent Auto 14.9 % (20-44); Mean Corpuscular HGB Conc 31 gm/dL (32-36); Mean Corpuscular Hemoglobin 27 pg (26-34); Mean Corpuscular Volume 86 fL (80-100); Monocytes Percent Auto 11.2 % (0.0-11.0); Neutrophils Absolute Auto 3.17 K/uL (1.7-7.0); Neutrophils Percent Auto 69.5 % (42.0-72.0); Platelet Count* 156 K/uL (140-440); RDW Coefficient of Variation % 14.5 % (11.5-15.5); Red Blood Count 3.82 m/uL (4.30-5.90); White Blood Count* 4.56 K/uL (4.50-11.00)
[2022-07-16 07:13] LABS: Slide Review Reflex No
[2022-07-16 07:17] LABS: Albumin* 2.8 g/dL (3.3-5.0)
[2022-07-16 07:18] LABS: Chloride* 111 mmol/L (96-114); Potassium* 3.7 mmol/L (3.6-5.1); Sodium* 141 mmol/L (135-149)
[2022-07-16 07:20] LABS: Aspartate Amino Transferase* 16 U/L (12-35); Bilirubin Total* 0.6 mg/dL (0.1-1.5); Carbon Dioxide* 25 mmol/L (20-32); Creatinine* 2.1 mg/dL (0.5-1.5); Estimated Glomerular Filt Rate 33 ml/min
[2022-07-16 07:21] LABS: Alanine Aminotransferase* 10 U/L (4-50); Alkaline Phosphatase* 76 U/L (40-150); Blood Urea Nitrogen* 28 mg/dL (7-30); Calcium* 8.6 mg/dL (8.4-10.6); Glucose* 163 mg/dL (60-115); Total Protein* 5.7 g/dL (6.0-8.3)
[2022-07-16 07:26] LABS: NT Pro B Type NatriureticPept* 9940 PG/mL (0-125)
[2022-07-16 07:34] LABS: Procalcitonin* 0.18 ng/mL (<0.50)
[2022-07-16 07:45] VITALS: BP 154/75; PULSE 76; RESP 22; TEMP 36.9; O2SAT 93
--- NOTE | 2022-07-16 08:00 | CRLHL7_ITS ---
For Patients: As a result of the Century Cures Act, medical imaging exams and procedure reports are released immediately into your electronic medical record. You may view this report before your referring provider. If you have questions, please contact your health care provider. Indication: Pulmonary infiltrates. Technique: Chest 1 view. Comparison: 07/15/2022. Findings/Impression: Cardiovascular and mediastinum: Heart size is within normal limits. Lungs and pleural space: Relatively severe bilateral infiltrates are not significantly changed. No significant effusion and no pneumothorax. No new abnormality. Bones and soft tissues: No acute findings. Dictated by Dharmesh Clarke MD @ 07/16/2022 8:46:35 AM (Electronically Signed)
--- NOTE | 2022-07-16 09:08 | P.DS_ITS ---
DS: Providers Provider Date Seen: 07/16/22 Date of admission: 07/10/22 16:40 Primary care physician: Momo Forbes MD Admitting Clinician: Alexandria Cid MD Consults: PT, OT, Wound Care, RT Attending Physician on discharge: Jasmina Chinchilla MD Date of Discharge: 07/16/22 DS: Diagnosis Discharge Diagnosis (1) Edema: Status: Acute Problem details: - multifactorial, possibly iatrogenic given amlodipine use, discontinued this and increased patient's carvedilol on 07/15 - anticipate improvement with diuretics and mobility (currently not able to ambulate, unable to get prosthesis to fit while edematous) (2) Daytime hypersomnia: Status: Acute Problem details: - likely related to untreated CHANELL and comorbidities as noted in #1 above - no significant CO2 retention on VBG - patient tends to improve throughout the day (3) Acute kidney injury: Status: Acute Problem details: - baseline outpatient creatinine 2.1, peaked at 2.8 during stay - creatinine at baseline on 07/16 for discharge (creatinine noted to improve with diuretic use) (4) Skin ulcer of buttock: Status: Acute Problem details: - wound care (known patient to our wound care team); blood sugar management (5) Below-knee amputation of left lower extremity: Status: Chronic Problem details: - November 2005, 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 On CellCept and tacrolimus (8) COVID-19 in immunocompromised patient: Status: Acute Problem details: - +06/02/22. Status post dexamethasone, Baricitnib, oxygen support. Two previous admissions in May. Antigen negative on admission (9) Insulin dependent diabetes mellitus: Status: Chronic Problem details: - A1C 8.8 on 06/15/22; query outpatient compliance with insulin - continue SSI/bedside glucose checks. (10) Chronic kidney disease: Status: Chronic Problem details: - s/p renal transplant. baseline creatinine 2.0-2.1 DS: Summary Hospital Course Hospital Course: Latrell is a 72-year-old male with multiple medical comorbidities, admitted to the hospital on 07/10/22 for weakness and edema. His weakness was felt to be multifactorial, given comorbidities, acute kidney injury, chronic immunosuppressed status 2/2 renal transplant, DM2, recent COVID infection, untreated CHANELL. Notable findings above and include acute kidney injury (creatinine peaked at 2.8, back to baseline of 2.1 upon discharge). Creatinine noted to improve with diuretic use. Patient's edema was fairly problematic, as he was unable to use his left lower extremity prosthesis 2/2 edema (h/o BKA); edema treated with diuresis and his amlodipine was discontinued. Coreg dose was subsequently increased for blood pressure control. He was seen by PT and OT for his weakness and deconditioning, who recommend SNF placement upon discharge. RT was also consulted given patient's untreated CHANELL (intolerant of CPAP) and dependence on supplemental oxygen. He was noted to have bilateral infiltrates on imaging, these were not felt to be bacterial given his afebrile status, normal white count, normal procalcitonin, and recent COVID infection. Urine culture positive for Proteus during stay, so patient was treated with Augmentin. Patient's comorbidities remained stable and he was medically cleared for discharge to SNF in [place] on 07/16/2022. Status at Discharge Functional status at discharge: bed bound Overall status at discharge: patient is progressing back to baseline Time Spent with Patient Time attestation: Total time spent providing and/or coordinating discharge services: Time spent: Greater than 30 minutes Specific discharge activities: Medication reconciliation, care management Exam Narrative: Exam Narrative: GEN: Alert and laying comfortably in bed, appears deconditioned and chronically ill but not toxic HEENT: Normal external ears, EOMIs bilaterally, no scleral icterus CV: Rate controlled atrial fibrillation, No concerning murmurs, rubs, or gallops R: Decreased lung sounds bilaterally, no acute wheezing or rales Ext: Left BKA, 2+ pitting edema right lower extremity Skin: No concerning skin lesions or rashes on exposed skin Psych: Appropriate Const: Vital Signs, click to edit/add: Vital Signs - 24 hr 07/15/22 11:00 07/15/22 15:00 07/15/22 15:00 Temperature 98.1 F Pulse Rate [Left R adial] Pulse Rate [Pulse Oximeter] 72 76 Respiratory Rate 20 22 Blood Pressure [Le ft Arm] 147/67 H Pulse Oximetry 91 93 Oxygen Delivery Me thod Nasal Cannula Oxygen Flow Rate 2 07/15/22 15:00 07/15/22 15:00 07/15/22 19:00 Temperature 98 F 98.3 F Pulse Rate [Left R adial] 75 Pulse Rate [Pulse Oximeter] 76 76 Respiratory Rate 22 22 20 Blood Pressure [Le ft Arm] 116/72 116/54 L Pulse Oximetry 93 93 93 Oxygen Delivery Me thod Nasal Cannula Nasal Cannula Nasal Cannula Oxygen Flow Rate 2 2 2 07/15/22 23:00 07/15/22 23:00 07/15/22 23:00 Temperature Pulse Rate [Left R adial] Pulse Rate [Pulse Oximeter] 73 Respiratory Rate 20 Blood Pressure [Le ft Arm] Pulse Oximetry 91 91 Oxygen Delivery Me thod Nasal Cannula Oxygen Flow Rate 2 07/15/22 23:00 07/16/22 03:00 Temperature 97.9 F 98.2 F Pulse Rate [Left R adial] 68 Pulse Rate [Pulse Oximeter] 73 68 Respiratory Rate 20 20 Blood Pressure [Le ft Arm] 129/63 129/65 Pulse Oximetry 91 93 Oxygen Delivery Me thod Nasal Cannula Nasal Cannula Oxygen Flow Rate 2 2 DS: Data Data Completed and Pending Labs on day of discharge: Labs from last 24 hours 07/16/22 07/16/22 05:49 05:49 WBC 4.56 RBC 3.82 L Hgb 10.2 L Hct 32.7 L MCV 86 MCH 27 MCHC 31 L RDW Coeff of Benjamin 14.5 Plt Count 156 Neut % (Auto) 69.5 Lymph % (Auto) 14.9 L Montgomery % (Auto) 11.2 H Eos % (Auto) 3.5 Baso % (Auto) 0.7 Neut # (Auto) 3.17 Lymph # (Auto) 0.70 L Montgomery # (Auto) 0.50 Eos # (Auto) 0.16 Baso # (Auto) 0.03 Abs Immat Gran (auto) 0.01 Imm/Tot Granulo (auto) 0.2 Sodium 141 Potassium 3.7 Chloride 111 Carbon Dioxide 25 BUN 28 Creatinine 2.1 H Estimated Creat Clear 34.90 Estimated GFR 33 Glucose 163 H Calcium 8.6 Total Bilirubin 0.6 AST 16 ALT 10 Alkaline Phosphatase 76 NT-Pro-B Natriuret Pep 9940 H Total Protein 5.7 L Albumin 2.8 L Procalcitonin 0.18 Discharge Plan Discharge Disposition: [facility] Date of Admission: 07/10/22 16:40 Attending Provider on Discharge: Jasmina Chinchilla Primary Care Provider: Momo Forbes Condition: Improved Anticipated Discharge Date/Time: 07/16/22 11:00 Discharge Medications: New carvedilol 25 mg Tablet 25 mg PO BID Qty: 30 0RF Rx Instructions: please note dose increase (previously on 12.5mg BID) insulin aspart U-100 [Novolog Flexpen U-100 Insulin] 100 unit/mL (3 mL) Insulin Pen 10 unit subcut TIDWM Qty: 15 0RF Levemir FlexTouch U-100 Insuln 100 unit/mL (3 mL) Insulin Pen 20 unit subcut HS Qty: 15 0RF albuterol sulfate 2.5 mg /3 mL (0.083 %) Solution For Nebulization 2.5 mg NEB Q4H PRNQty: 90 0RF amoxicillin-pot clavulanate 875-125 mg Tablet 1 tab PO BIDWM 4 Days Qty: 8 0RF Rx Instructions: 4 more days to complete full 10 day course of therapy Eliquis 5 mg Tablet 2.5 mg PO BID Qty: 60 0RF levothyroxine 25 mcg Tablet 25 mcg PO DAILY@0600 Qty: 30 0RF Lactobacillus acidophilus 0.5 mg (100 million cell) Tablet 1 mg PO TIDWM Qty: 30 0RF torsemide 10 mg tablet 10 mg PO DAILY 7 Days Qty: 7 2RF Rx Instructions: for one week, then physician to re-assess need for continued diuresis Continued tacrolimus 0.5 mg capsule 0.5 mg PO QDAY Label Comments: TAKE ONE CAPSULE BY MOUTH EVERY DAY tacrolimus 1 mg capsule 1 mg PO HS CertaVite Senior 0.4 mg-300 mcg- 250 mcg tablet 1 tab PO QDAY escitalopram oxalate 20 mg tablet 20 mg PO DAILY gabapentin 300 mg capsule 300 mg PO QAM Label Comments: TAKING 300 MG IN AM AND 600 HS SEE OTHER ENTRY tamsulosin 0.4 mg capsule 0.4 mg PO DAILY Label Comments: TAKE ONE CAPSULE BY MOUTH EVERY DAY aspirin 81 mg tablet,delayed release (DR/EC) 81 mg PO QDAY gabapentin 300 mg capsule 600 mg PO QHS mycophenolate mofetil 250 mg capsule 750 mg PO BID pantoprazole 40 mg tablet,delayed release (DR/EC) 40 mg PO DAILY Label Comments: TAKE ONE TABLET BY MOUTH TWICE A DAY rosuvastatin 10 mg tablet 10 mg PO HS Discontinued insulin glargine 100 unit/mL (3 mL) insulin pen 40 unit subcut HS Label Comments: PATIENT HAS BEEN TOO SICK TO TAKE. amlodipine 5 mg tablet 5 mg PO BID carvedilol 25 mg tablet 12.5 mg PO BID insulin lispro 100 unit/mL insulin pen 15 - 20 unit subcut TID Discharge Orders: Discharge Order (Routine); Ordered 07/16/22 Ordered By: Jasmina Chinchilla Activity Level: Up with assist Activity Detail: with assist, may use prosthetic when edema improves Activity Restrictions: per PT/OT Discharge Diet: Diabetic Follow Up Appointments: Momo Forbes MD [Primary Care Provider] - (within one week after d/c from SNF (patient to call and make appt)) Forms: [employer] Info Instructions Discharge Comments: Please keep catheter in place until significant improvement in coccyx wound Wound Care: see printed orders from [facility] wound center - dressing changes to be performed thrice weekly (M/W/F) Admit to: SNF Discharge Potential: Fair Length of Stay: 30-90 days Can use facility standing orders?: Yes Code Status: Full Code Rehab Potential: Good Therapy: Physical Therapy and Occupational Therapy Therapy Orders: Evaluate and Treat and ADL Oxygen: Yes Oxygen Delivery Method: Nasal Cannula Oxygen Flow Rate: 1-4, goal O2 saturation 88-90%, high risk for CO2 retention given untreated Urinary Catheter: Yes Gibbs Catheter Mozambican Size: 16 Glucose Checks: yes, AC and HS Orders are good >30 days: Yes Signature: Jasmina Chinchilla MD
[2022-07-16] MEDS: AMOXICILLIN/CLAVULANATE 875 mg/125 mg TABLET PO (09:32)
[2022-07-16] MEDS: TORSEMIDE 20 MG TABLET PO (09:33)
[2022-07-16] MEDS: LACTOBACILLUS ACIDOPHILUS 1 TABLET 2 TAB PO (09:33)
[2022-07-16] MEDS: ASPIRIN 81 MG TABLET EC PO (09:34)
[2022-07-16] MEDS: OMEPRAZOLE 20 MG CAPSULE DR 40 MG PO (09:34)
[2022-07-16] MEDS: carvediloL 25 MG TABLET PO (09:34)
[2022-07-16] MEDS: APIXABAN 5 MG TABLET 2.5 MG PO (09:35)
[2022-07-16] MEDS: GABAPENTIN 300 MG CAPSULE PO (09:37)
[2022-07-16] MEDS: TAMSULOSIN HCL 0.4 MG CAPSULE PO (09:37)
[2022-07-16] MEDS: TACROLIMUS 0.5 MG CAPSULE PO (09:38)
[2022-07-16] MEDS: mycophenolate mofetiL 250 MG CAPSULE 750 MG PO (09:39)
[2022-07-16] MEDS: ESCITALOPRAM 10 MG TABLET 20 MG PO (09:47)
--- NOTE | 2022-07-16 10:08 | PC.SOCIAL ---
Discharge plan: Met with pt who is aware and agrees with plan for discharge today to [facility]. Pt is aware non-emergency transportation has been arranged. Provided pt with Important Message from Medicare and explained option to appeal discharge. Pt states he is not interested in appealing. Pt requested his girlfriend Tete be called regarding discharge time as he is not sure if she is coming here or will meet him at the facility. Pt also requested pediatric social worker ask Tete to bring in shorts and T-shirts for him to wear at the snf facility. Called Tete and provided her with requested information on the [facility]. She is aware and agrees with transportation arrangements and is planning to meet him at [facility] when he arrives there. She will bring requested clothing to him there. She is requesting to talk with admission staff at the [facility] to get information on visiting rules. Tete gave pediatric social worker permission to provide her contact information to [facility] so they could call her to answer these questions. Called [facility] and left message for Catrina in admitting confirming plans and timing of admit today. Left message requesting she call Tete to answer her questions.
[2022-07-16] MEDS: SODIUM CHLORIDE 0.9 % (FLUSH) 10 ML SYRINGE IVF (10:30)
[2022-07-16] MEDS: TRIAMCINOLONE ACETONIDE CREAM 0.1 % 1 APPLIC TOPICAL (10:30)
[2022-07-16] MEDS: CLOTRIMAZOLE 1 % CREAM 1 APPLIC TOPICAL (10:30)
[2022-07-16 14:22] VITALS: BP 154/75; PULSE 76; RESP 22; TEMP 36.9
--- NOTE | 2022-07-16 14:26 | PC.NURSE ---
shift note: vss stable. pt afeb. coccyx wound x2 cleansed and redressed per dr orders. stg 2 pressure ulcers x2 on coccyx. Rt carmona drsg change performed per d.o with 4x4 mepilex covering. Rt foot drsg changed. 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 No open wound noted. LS with course rhonchi. pt has 2L pnc in place with sats 93%. pt denies pain. IV dc'd intact Lt FA. Report given to Catrina MCFADDEN at [facility] via phone. pt transferred by non emergent service at de. bose intact at de. pt refused stool softner and/or laxative. last BM 07/10/22
== END 2022-07-16 11:07 | DRG 291 ==
LOC: ED 13:55 → MEDSURG 15:53
PROVIDERS: Family Medicine; Internal Medicine; Admitting Provider Family Medicine; Emergency Provider Family Medicine; PCP Family Medicine; Visit Provider Family Medicine
DX: I13.2 Hypertensive heart and chronic kidney disease with heart failure and with stage 5 chronic kidney disease, or end stage renal disease (principal); I50.33 Acute on chronic diastolic (congestive) heart failure; J96.01 Acute respiratory failure with hypoxia; J18.9 Pneumonia, unspecified organism; U07.1 COVID-19; N17.9 Acute kidney failure, unspecified; N18.5 Chronic kidney disease, stage 5; Z94.0 Kidney transplant status; D84.81 Immunodeficiency due to conditions classified elsewhere; L97.829 Non-pressure chronic ulcer of other part of left lower leg with unspecified severity; N25.81 Secondary hyperparathyroidism of renal origin; N39.0 Urinary tract infection, site not specified; Z68.41 Body mass index [BMI] 40.0-44.9, adult; I48.21 Permanent atrial fibrillation; L97.828 Non-pressure chronic ulcer of other part of left lower leg with other specified severity; U09.9 Post COVID-19 condition, unspecified; G47.19 Other hypersomnia; L89.322 Pressure ulcer of left buttock, stage 2; L89.312 Pressure ulcer of right buttock, stage 2; B96.4 Proteus (mirabilis) (morganii) as the cause of diseases classified elsewhere; D63.1 Anemia in chronic kidney disease; G47.33 Obstructive sleep apnea (adult) (pediatric); R53.1 Weakness; R60.0 Localized edema; Z99.81 Dependence on supplemental oxygen; R62.7 Adult failure to thrive; E11.42 Type 2 diabetes mellitus with diabetic polyneuropathy; Z79.4 Long term (current) use of insulin; E11.3599 Type 2 diabetes mellitus with proliferative diabetic retinopathy without macular edema, unspecified eye; E11.22 Type 2 diabetes mellitus with diabetic chronic kidney disease; E11.65 Type 2 diabetes mellitus with hyperglycemia; Z89.512 Acquired absence of left leg below knee; F41.1 Generalized anxiety disorder; G47.00 Insomnia, unspecified; F32.9 Major depressive disorder, single episode, unspecified; E66.01 Morbid (severe) obesity due to excess calories; R32 Unspecified urinary incontinence; R15.9 Full incontinence of feces; R19.7 Diarrhea, unspecified; K86.89 Other specified diseases of pancreas; E04.1 Nontoxic single thyroid nodule; N52.9 Male erectile dysfunction, unspecified; E78.5 Hyperlipidemia, unspecified; Z85.828 Personal history of other malignant neoplasm of skin; Z79.01 Long term (current) use of anticoagulants
CPT/HCPCS: 36415; 71045; 71250; 80048; 80053; 80069; 80076; 81001; 82040; 82330; 82728; 82803; 82962; 83036; 83540; 83550; 83605; 83735; 83880; 83970; 84100; 84145; 84443; 84484; 84550; 85025; 85027; 85045; 85610; 86140; 87040; 87086; 87186; 87426; 87493; 87502; 87634; 87635; 93005; 93306; 94640; 94664; 94761; 97110; 97162; 97165; 97530; 97535; 99215; 99284; 99285; A9270; J1940; J2405; J2543; J7030; J7507; J7626

== ENCOUNTER 2022-07-16 10:52 | Outpatient (CLI) | payer MEDICARE, BC, SELFPAY ==
--- OUTSIDE RECORDS SUMMARY | 2022-07-29 12:53 | XMS_ITS | Clinical Summary ---
:1950 Author Organization [facility] Address [facility] [place] [address] Care Team Providers Name Role Phone Momo [...] Problem list name updated by automated p [employer]. Provider to review Gout 12/02/2011 Peripheral neuropathy 12/02/2011 Diabetic retinopathy 12/02/2011 HTN, kidney transplant related 12/02/2011 Overview: Problem list name updated by automated p [employer]. Provider to review DM (diabetes mellitus), type 2 12/02/2011 History of tobacco use 12/02/2011 Thrombocytopenia 12/02/2011 Malaise and fatigue 12/02/2011 Overview: Problem list name updated by automated p [employer]. Provider to review Depression Resolved Problems Problem [...] Solid Organ Gretta Peacock, Transplant (C ovid retail solar advisor reassessment/) 06/07/2022 Telephone Solid Organ Gretta Peacock, Transplant (C ovid retail solar advisor reassessment ) 06/05/2022 Telephone Solid Organ Evelyn Schuster, retail solar advisor 06/02/2022 Documentation Only Nephrology Satish Gómez MD 05/06/2022 Telephone Solid Organ Gretta Peacock, Left Message To retail solar advisor Call (Left VM 05/06/2022 at 11:55PM., Wante d to discuss lab results) 05/04/2022 Telephone Solid Organ Gretta Peacock, Transplant La b retail solar advisor (Elevated serum creatinine and proteinuria) 05/02/2022 Telephone Solid Organ Gretta Peacock, Erroneous retail solar advisor encounter-disre sebastian 04/29/2022 External Order Lab Outside, Results Provider from Last 3 Months Immunizations Name Administration [...] Comments Blood Pressure 169/76 10/09/2019 2:35 PM DAIRY FEED WORKER Pulse 67 10/09/2019 2:35 PM DAIRY FEED WORKER Temperature 36.5 ??C (97.7 ??F) 10/17/2018 1:54 PM DAIRY FEED WORKER Respiratory Rate 18 10/25/2016 4:39 PM DAIRY FEED WORKER Oxygen Saturation 95% 10/09/2019 2:35 PM DAIRY FEED WORKER Inhaled Oxygen Concentration - - Weight 132.5 kg (292 lb 1.6 oz) 10/09/2019 2:35 PM DAIRY FEED WORKER Height 182.9 cm (6') 10/10/2017 2:25 PM DAIRY FEED WORKER Body Mass Index 39.62 10/10/2017 2:25 PM DAIRY FEED WORKER Plan of Treatment Health Maintenance Due Date [...] this topic Medical Devices Explanted Type Area Irrigation System Operator Device Shelf Model / Identifier Expiration Serial / Date Lot Stent Ureteral [employer] Renal Transplant [id number] Right: [employer] 11/19/2016 [id number] / Implanted: Qty: 1 on 02/02/2014 by Migel Viveros MD at [facility] [employer] / Explanted: Qty: 1 on 04/01/2014 by Celina Helton MD at [facility] [id number] Procedures Procedure Name Priority Date/Time Associated Comments [...] Platelets & Differential (04/29/2022 11:40 AM CDT) [facility] gist Method [...] e Number JESSICA [id number] NON-INTERFACED (ONBASE SCANS) Tacrolimus by Tandem [place] [...] City/State/ZIP Code Phon e Number [place] PFT NON-INTERFACED (ONBASE SCANS) from Last 3 Months Insurance Payer Benefit Plan / Subscriber ID Effective Phone Address T ype Group Dates MEDICARE MEDICARE [id number] 2011-Prese [phone] ATTN CLAI MS Medicare nt 40 [address] [place] [address] BC[place] OF [place] [id number] 2016-Prese [phone] [address] [address] Indemnity nt 00 [place] [address] [place] (Home) [place] [address] Diego Guthrie Personal/Family Self [address] [place] ([place]) [place] [address] Advance Directives For more information, please contact: [phone] Latest Code Status on File Code Status Date Activated Date Inactivated Comments Full Code 04/01/2014 9:03 AM Code Status History Code Status Date Activated Date Inactivated Comments Full Code 02/08/2014 7:12 AM 04/01/2014 9:03 AM Full Code 02/03/2014 12:56 AM 02/08/2014 7:12 AM Care Teams Metal Bonding Helper Relationship Specialty Start Date End Date Momo Forbes PCP - General Family Practice 01/02/14 [facility] [address] [place] [address] Joseph Quintana, Assigned Nephrology 03/29/21 MD Provider [address] [place] [address] [address] [place] [address]
--- OUTSIDE RECORDS SUMMARY | 2022-07-29 12:53 | XMS_ITS | Clinical Summary ---
:1950 Author Organization [facility] [place] [address] Care Team Providers Name Role Phone Momo Forbes MD Primary Care Provider [phone] Allergies No known active allergies Medications Medication Sig Dispensed Refills Start Date End Date Status mycophenolate Take 3 capsules by 0 06/03/2016 Active (CELLCEPT) 250 mg mouth every 12 capsuleIndications: hours. -donor kidney transplant recipient rosuvastatin TAKE ONE TABLET BY 90 tablet 1 07/11/2018 Active (CRESTOR) 10 mg MOUTH EVERY DAY AT tabletIndications: BEDTIME Hyperlipidemia, unspecified hyperlipidemia type escitalopram oxalate Take 20 mg by 0 Active (LEXAPRO) 20 mg mouth once daily. tablet miscellaneous medical As directed. KCI 1 unit 0 09/24/2020 Active supply wound VAC Setting miscIndications: 125mmHg placed Diabetic foot 09/19/20 - Okay to infection (HC) use Medela Wound Vac at Intermediate Facility Right foot wound debridement with application of integra bilayer matrix and wound vac, 10.0 cm x 5.0 cm x 0.6 cm. M- W-F dressing changes gabapentin Take 1 capsule by 21 capsule 0 09/26/2020 Active (NEURONTIN) 300 mg mouth 3 times capsuleIndications: daily. 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 of skin (HC) Gauze Bandage 4 X [...] in the evening. insulin lispro Inject 15-20 units 0 09/30/2021 Active (HUMALOG; ADMELOG) subcutaneous 3 100 unit/mL injection times daily before meals. insulin glargine, Inject 25-40 units 0 09/30/2021 Active U-100, 100 unit/mL (3 subcutaneous at mL) penIndications: bedtime. Type 2 diabetes mellitus with complication, with [...] mouth 2 times daily with meals. guaiFENesin (MUCINEX) Take 600 mg by 0 Active 600 mg mouth 2 times Extended-Release daily if needed tablet for Expectoration. sodium chloride Inhale 2 Sprays 45 mL 0 06/05/2022 Active (OCEAN) 0.65 % nasal into affected solutionIndications: nostril(s) 4 times Post-nasal drainage daily if needed for Nasal Congestion. warfarinIndications: As directed 5 mg 7 Each 0 06/20/2022 Active Chronic atrial once daily. fibrillation (HC) pantoprazole Take 1 Tablet (40 60 Tablet 0 06/20/2022 07/20/20 2 (PROTONIX) 40 mg mg) by mouth two 2 delayed-release times daily. tabletIndications: Gastrointestinal hemorrhage, unspecified gastrointestinal hemorrhage type amLODIPine (NORVASC) Take 1 Tablet (5 60 Tablet 0 06/20/2022 1 5 mg mg) by mouth two 2 tabletIndications: times daily. Hypertension albuterol HFA Inhale 2 Puffs by 1 Each 0 06/20/2022 02 (PRO-AIR; VENTOLIN; mouth every 4 2 PROVENTIL) 90 hours if needed mcg/actuation for Wheezing 1st inhalerIndications: choice. Cough in adult Active Problems Problem Noted Date Pneumonia due [...] Encounters Date Type Specialty Care Team Description 07/11/2022 Orders Only <No scans attac hed> 06/18/2022 Travel 06/15/2022 - Hospital Encounter Corie, Amir Acute hyp oxemic respiratory failure due to COVID-19 (HC) (Primary Dx); 06/20/2022 Ali, DO Chronic atrial fibrillation (HC); Larry Casas Gastrointestina l hemorrhage, unspecified gastrointestinal hemorrhage type; DAVID Denton Hypertension; Arnoldo Gregory Cough in adult Drea [facility] Discharge Summary - Arnoldo Gregory [facility] - 06/20/2022 8:17 AM CDT Images from the original not e were not included. HOSPITAL DISCHARGE SUMMARY Patient Name: Elinor Guthrie Date of : 1950 Age: 72 y.o. [id number] Primary Physician: Momo Forbes MD Admission Date: 06/15/2022 Discharge Date: 06/20/2022 [facility] be [facility] to home. 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 male who was transferred from [facility] after initially presenting there on June [...] NA Latest Laboratory Results: Chem: Recent Labs 06/20/2244 06/19/22 05 SODIUM 138 139 POTASSIUM 4.3 [...] Take 1 Tablet (5 mg) by kwabena two times daily. 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 miscellaneous medical supply Mis For diagnoses: Diabetic foot infection (HC) As directed. KCI wound VAC Setting 125mmHg placed 09/19/20 - Okay to use Medela Wound Vac at Intermediate [facility] Right foot wound debridement with [...] diagnoses: Post-nasal dr dyson Commonly known as: OCEAN Inhale 2 Sprays into affect ed nostril(s) [...] medicines These medications were sent to [facility], [place] [facility] [address] [facility] [id number] ?? albuterol HFA 90 mcg/actu ation inhaler [...] and I nstructions AMB CONSULT TO HOME FDC Health Certification/F dharmesh to Face Attestation: I certify that this patient is confined to his/her home and needs intermittent fpc care, physical therapy and/or speech therapy or continues to need occupational therapy. A plan of care has been established and will be reviewed periodically by a physician or allowed practitioner. Services will be furnished while the patient is under the care of a physician or allowed practitioner. The beni ent had a [id number] encou nter with a physician or an [...] services: Momo Forbes MD Electronically signed, Dr Gregroy 06/18/2022 After Hospital Follow Up Ap pointment(s) Please follow up with [facility] [place] on June 22 at 10:50 with Alexandria Banuelos. Meals on Wheels [place] You have been referred to [facility] with [facility] ( ) . Please [...] scarlett w up appointment(s) Momo Forbes MD [facility] follow up May resume ARB med [...] Try herb and spice blends such as Mrs. Anthony??. Limit foods canned and processed with salt. [...] medical emergency. Why were you at the [facility]? You were in the hospital fo r [...] if had recurrent GIB?? 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 HOSPITALIST DISCHARGE SUMMAR Y ? ? [facility] Admission Date: 06/01/2022 Discharge Date: 06/05/2022 Discharge Plan: Elinor agee was discharged to home. Principal Diagnosis Pneumonia due to COVID-[address] [facility] Hospital Problem List Principal Problem: [...] of resources and specialty equipment. Hospital Course Elinor CUNNINGHAM is a 72 y.o. mal e with a past medical history of uncontrolled type 2 diabetes mellitus, status post left BKA, end-stage renal disease status post renal transplant in 2013 at [facility] on CellCept and Prograf who presents with [...] transplant team because he is inpatient per [facility]'s policy given the EUA stipulations. 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 KCI wound VAC Setting 125mmHg placed 09/19/20 - Rashaaday to use Medela Wound Vac at [facility] Right foot wound debridement with application [...] medicines [facility] [place] [place] [facility] [place] [facility] [address] [facility] [address] ?? cefuroxime axetil 500 mg tablet ?? dexAMETHasone 6 mg tablet Pertinent Findings / Procedu res First weight: (!) 148.5 kg ( 327 lb 6.4 oz) (Weighed with prostetic leg on - prostetic leg adds 20 lbs) (06/01/22 0696) Last weight: (!) 148.4 kg (327 lb 3.2 oz) (06/02/22 0668) EXAM: Elinor is alert, no acu te distress. Affect [...] 4.3 4.7 CHLORIDE -- 110 112 H [id number] -- 21 21 BUN -- 42 H 36 H CREATININE [...] H 283 H 230 H Recent Labs 06/02/2244 COLOR Yellow CLARITY Clear SPECGRAV 1.020 PHURINE 6.0 UROBILINOGEN Normal PROTEINUA 100 A Recent Labs 06/02/2244 GLUCOSEUA 100 A KETONESUA Negative BILIURINE Negative BLOODUA Small A NITRITE Positive A LEUKOCYTE Moderate A Micro Microbiology Results (72 CAIO RS) Procedure Component Value U nits Date/Time URINE CULTURE [[id number]] (Abnormal) (Susceptibility) Collected: 06/02/2244 Lab Status: Final [...] or P.mirablis. Linear View INFLUENZA A/B/H1N1 PCR [[id number]] (Normal) Collected: 06/02/2238 Lab Status: Final result Sp ecimen: Other from Nasopharyngeal Updated: 06/02/22122 INFLUENZA A PCR NOT Detecte d INFLUENZA B PCR NOT Detecte d COVID 19 [[id number]] (Abno rmal) Collected: 06/02/2238 Lab Status: Final [...] terminated or revoked sooner. BLOOD CULTURE X2 [[id number]] (Normal) Collected: 06/02/2224 Lab Status: Preliminary res ult Specimen: Blood Updated: 06/02/22 0507 CULTURE No growth to date. BLOOD CULTURE X2 [[id number]] (Normal) Collected: 06/02/2221 Lab Status: Preliminary res ult Specimen: Blood Updated: 06/02/22 0507 CULTURE No growth to date. Imaging XR [...] Duration 110 QT 362 QTc 415 R [place] [facility] Dana Bermudez with his transplant team at [facility]. Diet / Activity / Follow-Up After Discharge Orders and I nstructions COVID-19 Discharge Informat ion: Discharge instructions for COVID test positive You were tested for COVID-19 and your test result was positive. Additional Information When it is safe to return to work, school, or daycare: If you or others in your [facility] are working, please reach out to your Employer for further direction on work policies. For children who attend scho ol or day care, refer your child's school or day care policy for when its safe to return, You can also refer to the [facility] guidelines. Go to: https://www.[facility]./di ranulfoes/coronavirus/schools/exguide.pdf Call 911 if [...] for Disease Control (CDC) - https://www.cdc.gov/coronavirus/2019-nCoV/index.html Formerly [facility] ([facility]) - https://www.[facility]./diseases/coronavirus/index.html For children who attend scho ol or day care, refer to the following [facility] guidelines: Go to: https://www.[facility]./diseases/coronavirus/schools/exguide.pdf [facility]'s website www.[facility].[place].gov and Positioning and Breathing Exercises Positioning: Changing [...] or crutches as directed. Carry a phone (Volta or Xand) with you at all times in case [...] medical emergency. Why were you at the [facility]? The reason(s) you were in [facility] is/are COVID pneumonia and a bladder infection. Pending Studies Lab results that may not be resulted at time of discharge: (From admission through now) Start Ordered 06/02/2214 BLOOD CULTURE X2 Q1MIN, STAT Start Priority Status 06/02/2214 STAT Prelimina ry result Details 06/02/22 0020 STAT Prelimina ry result Details 06/02/22 000 Total time spent on discharg e coordination: 33 minutes. Patient was seen and examined today. Víctor Schuler DO Hospitalist, [facility] ? ? [phone] Cc: Sondra Renal Transplant Team 06/01/2022 Travel [...] Christoph 140/90 Medical Devices Implanted Type Area Gear Lapping Machine Operator Device Shelf Model / Identifier Expiration Date Ser ial / Lot Drsg Wound 4x5in Matrix Bilayer Right: 08/21/2020 [id number] / Implanted: Qty: 1 on 09/23/2020 by Araceli Fowler DPM at [facility] / [id number] Description: DRSG WOUND 4X5IN MATRIX JYOTI BHAVIK Procedures Procedure Name Priority Date/Time Associated Comments Diagnosis ECHO COMPLETE WO Routine 07/11/2022 3:35 PM Acute heart failur e Results for this CONTRAST QUALITY ASSISTANT (HC) procedure are i n the results section. SCAN 06/21/2022 12:00 Results for this CORRESP-DIAGNOSTICS [...] results section. from Last 3 Months Results ECHO COMPLETE WO CONTRAST (07/11/2022 3:35 PM QUALITY ASSISTANT)Only the most recent of2 resultswithin the time period is included. P athologist Signature AORTIC VALVE 7 mmHg MEAN PG EJECTION 71 % FRACTION PEAK TR 3.4 m/s VELOCITY LVEDD 5.0 cm Anatomical Region Laterality Modality HEART Ultrasound Specimen (Source) Anatomical Collection Method Collection Time Re ceived Time Location / / Volume Laterality 07/11/2022 2:52 PM QUALITY ASSISTANT Narrative 07/11/2022 7:32 PM QUALITY ASSISTANT ECHOCARDIOGRAM ELINOR GUTHRIE ?Accessio n#: ?? [id number] : ?1950 72 years Study Date: ?? 07/11/2022 2:52:02 PM Gender: M ? BP: ? 101/56 mmHg Height: 175.00 cm ? BSA: ?2.48 m? ?? Weight: 140.00 kg ? Tech: ? MCK ?R danny MICHELE: ALEXANDRIA STEWART Site: ? [facility] Reading Location: [place] Procedure: 2D, Color Doppler and Spectra l Doppler. Indication for study: new heart failure Cardiac Rhythm: Irregular.Study quality: Fair. Imaging limitations: This study was subj ect to imaging limitations due to body habitus and a prominent lung artifact. Final Impressions: 1. Normal left ventricular size, severe ly increased wall thickness, normal global systolic function, calculated EF of 71 %. 2. Normal right ventricular size and fu nction. 3. Moderately enlarged left atrium. 4. The aortic valve is trileaflet and s clerotic, no stenosis and trivial regurgitation. 5. MAC, the mitral valve is sclerotic, mean gradient 6 mmHg at 66 bpm, mild mitral regurgitation. 6. The ascending aorta is dilated with a maximal diameter of 4.0 cm. 7. Estimated RVSP 45 mmHg plus RA press ure (BP 101/56). 8. The inferior vena cava is normal siz ed, respiratory size variation not well visualized. Comparison Compared to prior exam of 06/16/2022December o, there has been no significant change. - Mitral valve gradient not given. Chamber Sizes and Function Normal left ventricular size, severely i ncreased wall thickness, normal global systolic function, calculated EF of 71 %. Left atrial size is moderately enlarged. Right ventricular cavity size is normal, global systolic RV function is normal. RV wall thickness is normal. The right atrium is mildly enlarged. Right atrial volume index is 32 ml/m? ??. Right atrial area is 27 cm? ??. The pulmonary artery i s of normal size and origin. The sinus o f Valsalva is normal sized. The ascending aorta is dilated. Valves, RV Pressures and Diastolic Funct ion The aortic valve is trileaflet and scler otic, no stenosis and trivial regurgitation. The mitral valve is sclerotic, mild mitral regurgitation. Mitral annular calcification is present. Indeterminate darrel agnes of LV diastolic filling. The tricusp id valve is normal in structure. Tricuspid regurgitation is trace regurgitation. The tricuspid regurgitant velocity is 3.4 m/s, the estimated right ventricular sy stolic pressure is 45 mmHg plus right at rial pressure. There is elevated estimated pulmonary pressure by tricuspid regurgitation velocity and right atrial pressure. The pulmonic valve is normal. Trace pulmonary regurgitation. Masses, Effusion, Shunts There is no pericardial effusion. There is a significant pericardial fat pad present. The inferior vena cava is normal sized, respiratory size variation not well visualized. Interatrial septum is not well visualized. MEASUREMENTS AND CALCULATIONS 2-D Measurements and LV Function: LVID (d) 5.0 cm Planimetered EF 71 % LVID (s) 2.9 cm LV FS% (2D) ? 42 % IVS (d) ??1.7 cm LVOT diameter ?? 2.1 cm LVPW (d) 1.7 cm HR ?7 0 bpm Ao Sinus 3.9 cm LA Vol index ?41 ml/ m2 Asc Ao ?? 4.0 cm RA Vol index ?32 ml /m2 LA ? 5.1 cm RA area ? 2 7 cm?RV Max 4C (d) ?? 3.5 cm Diastology: Mitral ?Tissue Doppler ?Pulmonary veins E Peak 1.7 m/s ??e', Lateral ?0.09 m /s Pulm s ?54.3 cm/s DT ? 189 msec ? Pulm d ?90.6 cm/s IVRT ?? 77 msec ?Pulm s/d ratio ??0.60 Aortic Valve: Vmax ? 1.8 m/s ??SAIGE (V) ?? 2.13 cm? ?? VTI ?0.40 m ?? SAIGE (I) ?? 2.10 cm? ?? LVOT V max 1.1 m/s ??Max PG ?14 mmHg LVOT VTI ?? 0.25 m ?? Mean PG ?? 7 mmHg SV ? 84 ml ?Dim Index 0.61 SV index ?? 34 ml/m? ?? CO ?5.9 l/min ?CI ?2.4 l/min/m? ?? Mitral Valve: MVA ? 4.0 cm? ?? MV P 1/2 ??55 msec MV Mean G 6 mmHg MV VTI ?0.44 m Tricuspid Valve and estimated PA pressur es: TR Vmax 3.4 m/s TAPSE 2.7 cm TR maxG 45 mmHg . This study [facility]. CC: [facility], Med/ Surg - IP [facility]. ??Final ?? Procedure Note Destin Hsu, [facility] - 07/11/2022Formatt ing of this note might be different from the original. ECHOCARDIOGRAM ELINOR GUTHRIE : 1950 72 years Study Date: 07/11 2:52:02 PM Gender: M BP: 101/56 mmHg Height: 175.00 cm BSA: 2.48 m? ?? Weight: 140.00 kg Tech: [facility] Referring MD: ALEXANDRIA STEWART Site: [facility] Reading Location: [facility] Procedure: 2D, Color Doppler and Spectra l Doppler. Indication for study: new heart failure Cardiac Rhythm: Irregular.Study quality: Fair. Imaging limitations: This study was subj ect to imaging limitations due to body habitus and a prominent lung artifact. Final Impressions: 1. Normal left ventricular size, severe ly increased wall thickness, normal global systolic function, calculated EF of 71 %. 2. Normal right ventricular size and fu nction. 3. Moderately enlarged left atrium. 4. The aortic valve is trileaflet and s clerotic, no stenosis and trivial regurgitation. 5. MAC, the mitral valve is sclerotic, mean gradient 6 mmHg at 66 bpm, mild mitral regurgitation. 6. The ascending aorta is dilated with a maximal diameter of 4.0 cm. 7. Estimated RVSP 45 mmHg plus RA press ure (BP 101/56). 8. The inferior vena cava is normal siz ed, respiratory size variation not well visualized. Comparison Compared to prior exam of 06/16/2022December o, there has been no significant change. - Mitral valve gradient not given. Chamber Sizes and Function Normal left ventricular size, severely i ncreased wall thickness, normal global systolic function, calculated EF of 71 %. Left atrial size is moderately enlarged. Right ventricular cavity size is normal, global systolic RV function is normal. RV wall thickness is normal. The right atrium is mildly enlarged. Right atrial volume index is 32 ml/m? ??. Right atrial area is 27 cm? ??. The pulmonary artery is of normal size and origin. The sinus of Valsalva is normal sized. T he ascending aorta is dilated. Valves, RV Pressures and Diastolic Funct ion The aortic valve is trileaflet and scler otic, no stenosis and trivial regurgitation. The mitral valve is sclerotic, mild mitral regurgitation. Mitral annular calcification is present. Indeterminate pattern of LV diastolic filling. The tricuspid valve i s normal in structure. Tricuspid regurgitation is trace regurgitation. The tricuspid regurgitant velocity is 3.4 m/s, the estimated right ventricular systolic pressure is 45 mmHg plus right atrial pressure. There is anshul vated estimated pulmonary pressure by tricuspid regurgitation velocity and right atrial pressure. The pulmonic valve is normal. Trace pulmonary regurgitation. Masses, Effusion, Shunts There is no pericardial effusion. There is a significant pericardial fat pad present. The inferior vena cava is normal sized, respiratory size variation not well visualized. Interatrial septum is not well visualized. MEASUREMENTS AND CALCULATIONS 2-D Measurements and LV Function: LVID (d) 5.0 cm Planimetered EF 71 % LVID (s) 2.9 cm LV FS% (2D) 42 % IVS (d) 1.7 cm LVOT diameter 2.1 cm LVPW (d) 1.7 cm HR 70 bpm Ao Sinus 3.9 cm LA Vol index 41 ml/m2 Asc Ao 4.0 cm RA Vol index 32 ml/m2 LA 5.1 cm RA area 27 cm? ?? RV Max 4C (d) 3.5 cm Diastology: Mitral Tissue Doppler Pulmonary veins E Peak 1.7 m/s e', Lateral 0.09 m/s Pulm s 54.3 cm/s DT 189 msec Pulm d 90.6 cm/s IVRT 77 msec Pulm s/d ratio 0.60 Aortic Valve: Vmax 1.8 m/s SAIGE (V) 2.13 cm? ?? VTI 0.40 m SAIGE (I) 2.10 cm? ?? LVOT V max 1.1 m/s Max PG 14 mmHg LVOT VTI 0.25 m Mean PG 7 mmHg SV 84 ml Dim Index 0.61 SV index 34 ml/m? ?? CO 5.9 l/min CI 2.4 l/min/m? ?? Mitral Valve: MVA 4.0 cm? ?? MV P 1/2 55 msec MV Mean G 6 mmHg MV VTI 0.44 m Tricuspid Valve and estimated PA pressur es: TR Vmax 3.4 m/s TAPSE 2.7 cm TR maxG 45 mmHg . This study was interpreted by [facility]. CC: [facility] [place], Med/ Surg - IP [facility]. Final Alexandria Stewart MD ECHO ORD SCAN CORRESP-DIAGNOSTICS (06/21/2022 12:00 AM CDT) Narrative [...] AM CDT 11:14 AM CDT Arnoldo Gregory [facility] CHEMISTRY Performing Organization Address City/State/ZIP Code Phon e Number [facility] [address] [address] (ABNORMAL) CBC WITH AUTO DIFFERENTIAL (06/20/2022 5:44 AM CDT)Only the most recent of11 resultswithin the time period is included. [facility] Method Time Signature WHITE BLOOD 6.4 [...] ABSOLUTE 0.4 (L) 0.9 - 2.9 06/20/2022 [place] LYMPHOCYTES thou/cu mm 6:27 AM T HOSPITAL ABSOLUTE 0.4 <0.9 06/[facility]2022 [facility]/cu mm 6:27 AM T [facility] ABSOLUTE 0.0 <0.5 06/20/2022 [place] EOSINOPHILS thou/cu mm 6:27 AM T HOSPITAL ABSOLUTE 0.0 <0.3 06/20/2022 [place] BASOPHILS thou/cu mm 6:27 AM T HOSPITAL Specimen Anatomical Collection Method / Collection Time Recei laura Time (Source) Location / Volume Laterality Blood BLOOD SPECIMEN / Venipuncture / 06/20/2022 5:44 2021 6:11 Unknown Unknown AM CDT AM CDT Mistid Drea Betzyrianna [facility] HEMATOLOGY Performing Organization Address City/State/ZIP Code Phon e Number [facility] [address] [phone] (ABNORMAL) PROTIME-INR (06/20/2022 5:44 AM CDT)Only the most recent of5 results within the time period is included. P athologist Signature INR 1.8 (H) <1.3 06/20/2022 [place] 6:22 AM T HOSPITAL PROTIME 20.1 (H) 12.0 - 13.8 06/20/2022 [place] sec 6:22 AM T [facility] Specimen Anatomical Collection Method / Collection Time Recei laura Time (Source) Location / Volume Laterality Blood BLOOD SPECIMEN / Venipuncture / 06/20/2022 5:44 2021 6:12 Unknown Unknown AM CDT AM CDT Narrative [facility] - 06/20/2022 6:22 AM C DT ?Therapeutic [...] the patient is on UFH. Arnoldo Gregory [facility] HEMATOLOGY Performing Organization Address City/State/ZIP Code Phon e Number [facility] [address] [place] [phone] (ABNORMAL) BASIC METABOLIC PANEL (06/20/2022 5:44 AM [...] 10 - 20 06/20/2022 [place] 6:35 AM T HOSPITAL eGFR 35 (L) >90 06/20/2022 [place] mL/min/1.7 6:35 AM T HOSPITAL 3m2 Comment: [...] 6:12 Unknown Unknown AM CDT AM CDT [facility] CHEMISTRY Performing Organization Address City/[facility] Phon e Number [facility] [address] [phone] (ABNORMAL) RED CELL MORPHOLOGY (06/19/2022 5:52 AM CDT)Only the most recent of7 resultswithin the time period is included. [facility] [employer] Method Time Signature ELLIPTOCYTES Few 06/19/2022 [place] 7:57 AM CDT HOSPITAL RBC COMMENT Present (A) RBC morphology 06/19/2022 [place] appears 7:57 AM CDT HOSPITAL normal, RBC morphology within normal limits for newborns. Specimen Anatomical Collection Method / Collection Time Recei laura Time (Source) Location / Volume Laterality Blood BLOOD SPECIMEN / Venipuncture / 06/19/2022 5:52 2021 6:44 Unknown Unknown AM CDT AM CDT [facility] HEMATOLOGY Performing Organization Address [facility] Phon e Number [facility] [address] [phone] (ABNORMAL) PLATELET ESTIMATE (06/19/2022 5:52 AM CDT)Only the most recent of7 resultswithin the time period is included. [facility] [employer] Method Time Signature PLATELET Decreased (A) Adequate, No 06/19/2022 [place] ESTIMATE estimate 7:57 AM CDT HOSPITAL Specimen Anatomical Collection Method / Collection Time Recei laura Time (Source) Location / Volume Laterality Blood BLOOD SPECIMEN / Venipuncture / 06/19/2022 5:52 2021 6:44 Unknown Unknown AM CDT AM CDT [facility] HEMATOLOGY Performing Organization Address City/[facility] Phon e Number [facility] [address] [address] PROCALCITONIN (06/19/2022 5:52 AM CDT)Only the most recent of2 resultswithin the time period is included. P athologist Signature PROCALCITONIN 0.05 <0.50 ng/ml 06/19/2022 [place] 9:45 AM CDT HOSPITAL Specimen Anatomical Collection Method / Collection Time Recei laura Time (Source) Location / Volume Laterality Blood BLOOD SPECIMEN / Venipuncture / 06/19/2022 5:52 2021 6:44 Unknown Unknown AM CDT AM CDT Narrative [facility] - 06/19/2022 9:45 AM C DT [...] concentrations <2.0 ng/mL are obtained. Arnoldo Gregory [facility] SEND OUTS Performing Organization Address City/State/ZIP Code Phon e Number [address] [phone] XR CHEST 1 VIEW PORTABLE (06/18/2022 9:15 AM CDT)Only the most recent of4 resultswithin the time period is included. Anatomical Region Laterality Modality HEART, THORAX, CHEST Digital Radiography Specimen (Source) Anatomical Location Collection Method / Collectio n Time Received Time / Laterality Volume Narrative This result has an attachment that is no t available. Arnoldo Drea Colt [facility] GENERAL IMAGING MAGNESIUM (06/17/2022 6:25 AM CDT)Only the most recent of4 resultswithin the time period is included. athologist Signature MAGNESIUM 2.2 1.6 - 2.6 06/17/2022 [place] mg/dL 7:01 AM CDT HOSPITAL Specimen Anatomical Collection Method / Collection Time Recei laura Time (Source) Location / Volume Laterality Blood BLOOD SPECIMEN / Venipuncture / 06/17/2022 6:25 2021 6:29 Unknown Unknown AM CDT AM CDT Larry HERNANDEZ CHEMISTRY Performing Organization Address City/State/ZIP Code Phon e Number [address] [phone] (ABNORMAL) COMP METABOLIC PANEL (06/17/2022 6:25 AM CDT)Only the most recent of5 resultswithin the time period is included. [facility] gist Method Time Signature SODIUM 137 135 [...] - 10.5 06/17/2022 [place] mg/dL 7:01 AM [facility] BUN 53 (H) 8 - 25 06/17/2022 [place] mg/dL 7:01 AM [facility] CREATININE 2.01 (H) 0.72 - 06/17/2022 [place] 1.25 mg/dL 7:01 AM [facility] BUN/CREAT RATIO 26 (H) 10 - 20 06/17/2022 [place] 7:01 AM [facility] ALBUMIN 2.6 (L) 3.2 - 4.6 06/17/2022 [place] g/dL 7:01 AM [facility] PROTEIN,TOTAL 5.3 (L) 6.0 - 8.0 06/17/2022 [place] g/dL 7:01 AM [facility] GLOBULIN 2.7 2.0 - 3.7 06/17/2022 [place] g/dL 7:01 AM [facility] A/G RATIO 1.0 1.0 - 2.0 06/17/2022 [place] 7:01 AM [facility] BILIRUBIN,TOTAL 1.0 0.2 - 1.2 06/17/2022 [place] mg/dL 7:01 AM [facility] ALK PHOSPHATASE 81 50 - 136 06/17/2022 [place] IU/L 7:01 AM [facility] ALT (SGPT) 17 8 - 45 06/17/2022 [place] IU/L 7:01 AM [facility] AST (SGOT) 10 2 - 40 06/17/2022 [place] IU/L 7:01 AM [facility] eGFR 35 (L) >90 06/17/2022 [place] mL/min/1.7 7:01 AM [facility] 3m2 Comment: As of 2021, eGFR [...] CDT Larry HERNANDEZ CHEMISTRY Performing Organization Address [facility] e [address] [address] PHOSPHORUS (06/16/2022 5:17 AM CDT)Only the most [...] CDT Larry HERNANDEZ CHEMISTRY Performing Organization Address [facility]/[address] [address] (ABNORMAL) Serum Glucose (06/15/2022 11:59 PM CDT)Only [...] Kyle Fontenot DO CHEMISTRY Performing Organization Address [facility] e [address] [address] APTT (06/15/2022 11:59 PM CDT)Only the most recent of2 resultswithin the time period is included. P athologist Signature APTT 26 24 - 33 sec 06/16/2022 [place] 12:21 AM CDT HOSPITAL Specimen Anatomical Collection Method / Collection Time Recei laura Time (Source) Location / Volume Laterality Blood BLOOD SPECIMEN / Venipuncture / 06/15/2022 11:59 06/16 Unknown Unknown PM CDT 12:10 AM CDT [facility] - 06/16/2022 12:21 AM CDT Therapeutic Range: 70-95 seconds Larry HERNANDEZ HEMATOLOGY Performing Organization Address City/[facility]/ZIP [facility] e Number [facility] [address] [address] (ABNORMAL) OCCULT BLOOD IFOBT STOOL (06/15/2022 9:14 PM CDT) Patholo gist Method Time Signature STOOL BLOOD Positive (A) Negative [facility] Specimen Anatomical Collection Method Collection Time Receive d Time (Source) Location / / Volume Laterality Stool STOOL SPECIMEN / Non-Blood / 06/15/2022 9:14 PM 06/15 9:19 Unknown Unknown CDT PM CDT Kyle Fontenot DO LABORATORY Performing Organization Address City/[facility] e Number [facility] [address] [address] (ABNORMAL) PLATELET COUNT (06/15/2022 4:58 PM CDT) P athologist Signature PLATELET COUNT 77 (L) 140 - 440 06/15/2022 [place] thou/cu mm 5:28 PM CDT HOSPITAL MPV 06/15/2022 [place] 5:28 PM CDT HOSPITAL Comment: Unable to be determined Specimen Anatomical Collection Method / Collection Time Recei laura Time (Source) Location / Volume Laterality Blood BLOOD SPECIMEN / Venipuncture / 06/15/2022 4:58 2021 5:03 Unknown Unknown PM CDT PM CDT Narrative [facility] - 06/15/2022 5:28 PM C DT Obtain before initiating IV heparin therapy if not done within previous 24 hours. Obtain before initiating IV heparin ther apy if not done within previous 24 hours. Obtain before initiating IV heparin ther apy if not done within previous 24 hours. Larry HERNANDEZ HEMATOLOGY Performing Organization Address City/[facility] [address] [place] [phone] (ABNORMAL) HEMOGLOBIN (06/15/2022 4:58 PM CDT)Only the most recent of2 results within the time period is included. athologist Signature HEMOGLOBIN 12.5 (L) 13.5 - 06/15/2022 [place] 17.5 g/dL 5:08 PM CDT HOSPITAL MCV 83 80 - 100 06/15/2022 [place] fL 5:08 PM CDT HOSPITAL Specimen Anatomical Collection Method / Collection Time Recei laura Time (Source) Location / Volume Laterality Blood BLOOD SPECIMEN / Venipuncture / 06/15/2022 4:58 2021 5:03 Unknown Unknown PM CDT PM CDT [facility] - 06/15/2022 5:08 PM C DT Obtain before initiating IV heparin therapy if not done within previous 24 hours. Obtain before initiating IV heparin ther apy if not done within previous 24 hours. Obtain before initiating IV heparin ther apy if not done within previous 24 hours. Larry HERNANDEZ HEMATOLOGY Performing Organization Address [facility]/[address] [address] HEMATOCRIT (06/15/2022 4:58 PM CDT) athologist Signature HEMATOCRIT 38.8 37.0 - 53.0 06/15/2022 [place] % 5:10 PM CDT HOSPITAL Specimen Anatomical Collection Method / Collection Time Recei laura Time (Source) Location / Volume Laterality Blood BLOOD SPECIMEN / Venipuncture / 06/15/2022 4:58 2021 5:03 Unknown Unknown PM CDT PM CDT [facility] - 06/15/2022 5:10 PM C DT Obtain before initiating IV heparin therapy if not done within previous 24 hours. Obtain before initiating IV heparin ther apy if not done within previous 24 hours. Obtain before initiating IV heparin ther apy if not done within previous 24 hours. Larry HERNANDEZ HEMATOLOGY Performing Organization Address [facility]/[address] [place] [address] (ABNORMAL) BUN (06/15/2022 4:58 PM CDT) athologist Signature BUN 65 (H) 8 - 25 06/15/2022 [place] mg/dL 5:24 PM CDT HOSPITAL Specimen Anatomical Collection Method / Collection Time Recei laura Time (Source) Location / Volume Laterality Blood BLOOD SPECIMEN / Venipuncture / 06/15/2022 4:58 2021 5:03 Unknown Unknown PM CDT PM CDT Larry HERNANDEZ CHEMISTRY Performing Organization Address City/[facility]/ZIP Code [facility] e [facility] [address] [place] [phone] (ABNORMAL) CREATININE (06/15/2022 4:58 PM CDT)Only the most recent of2 results within the time period is included. athologist Signature CREATININE 2.40 (H) 0.72 - 1.25 06/15/2022 [place] mg/dL 5:23 PM CDT HOSPITAL eGFR 28 (L) >90 [facility]/1.73 5:23 PM [facility]T [facility] m2 Comment: [...] CDT Larry HERNANDEZ CHEMISTRY Performing Organization Address City/[facility]/ZIP [facility] Phon e Number [facility] [address] [place] [phone] [place] VENOUS LOWER EXTREMITY BILATERAL (06/15/2022 4:05 PM CDT) Anatomical Region Laterality Modality LEGS, LEG L, LEG R Ultrasound Specimen (Source) Anatomical Location Collection Method / Collectio n Time Received Time / Laterality Volume Narrative This result has an attachment that is no t available. Larry HERNANDEZ (ABNORMAL) D-DIMER,QUANTITATIVE (06/15/2022 3:01 PM CDT)Only the most recent of3 resultswithin the time period is included. [facility] gist Method Time Signature D-DIMER,QUANT 1.65 See Comment 06/15/2022 [place] ITATIVE / FEU 3:25 PM CDT HOSPITAL mcg/mL D-DIMER Abnormal (A) 06/15/2022 [place] INTERP 3:25 PM CDT HOSPITAL Specimen Anatomical Collection Method / Collection Time Recei laura Time (Source) Location / Volume Laterality Blood BLOOD SPECIMEN / Venipuncture / 06/15/2022 3:01 2021 3:09 Unknown Unknown PM CDT PM CDT Narrative [facility] - 06/15/2022 3:25 PM C DT [...] Code Phon e Number [facility] [address] [address] (ABNORMAL) IRON PLUS IRON BINDING CAP (06/15/2022 5:46 AM CDT) [facility] Signature IRON 23 (L) 31 [...] Kyle Fontenot DO CHEMISTRY Performing Organization Address [facility]/ZIP Code Phon e Number [facility] [address] [place] [phone] LABORATORY-CENTRAL 2000 LABORATORY (ABNORMAL) PTH,INTACT (06/15/2022 5:46 AM CDT) athologist Signature PTH,INTACT 489.0 (H) 14.5 - 06/16/2022 [place] [facility] 87.1 pg/mL 3:01 PM CDT LABORATORY-JACKY TRAL LABORATORY CALCIUM 8.6 8.5 - 10.5 06/16/2022 [facility] mg/dL 3:01 PM CDT LABORATORY-JACKY TRAL LABORATORY Specimen Anatomical Collection Method / Collection Time Recei laura Time (Source) Location / Volume Laterality Blood BLOOD SPECIMEN / Venipuncture / 06/15/2022 5:46 2021 6:01 Unknown Unknown AM CDT AM CDT Kyle Fontenot DO SEND OUTS Performing Organization Address [facility] Phon e Number [facility] [address] [place] [phone] LABORATORY-CENTRAL 1999 LABORATORY (ABNORMAL) FERRITIN (06/15/2022 5:46 AM CDT)Only the most recent of2 results within the time period is included. athologist Signature FERRITIN 547.6 (H) 22.0 - 06/17/2022 [facility] 275.0 7:22 PM CDT LABORATORY-CENT ng/mL RAL LABORATORY Specimen Anatomical Collection Method / Collection Time Recei laura Time (Source) Location / Volume Laterality Blood BLOOD SPECIMEN / Venipuncture / 06/15/2022 5:46 2021 6:01 Unknown Unknown AM CDT AM CDT Kyle Fontenot DO CHEMISTRY Performing Organization Address [facility] Phon e Number [facility] [address] [place] [phone] LABORATORY-CENTRAL 1999 LABORATORY WHITE BLOOD COUNT (06/15/2022 1:45 AM CDT) P athologist Signature WHITE BLOOD 9.3 4.5 - 11.0 06/15/2022 [place] COUNT thou/cu mm 1:53 AM CDT HOSPITAL Specimen Anatomical Collection Method Collection Time Receive d Time (Source) Location / / Volume Laterality Blood BLOOD SPECIMEN / Butterfly / 06/15/2022 1:45 AM 06/15 1:49 Unknown Unknown CDT AM CDT Narrative [facility] - 06/15/2022 1:53 AM C DT WBC MUST ALSO BE ORDERED, [id number] Kyle Fontenot DO HEMATOLOGY Performing Organization Address City/State/ZIP Code Phon e Number [facility] [address] [phone] (ABNORMAL) DIFFERENTIAL (06/15/2022 1:45 AM CDT) Analysis Performed At Patho logist Time Signature % NEUT 94.6 % 06/15/2022 [place] 1:52 AM CDT HOSPITAL % LYMPH 2.0 % 06/15/2022 [place] 1:52 AM CDT HOSPITAL % MONO 2.8 % [facility] % EOS 0.5 % 06/15/2022 [place] 1:52 AM CDT HOSPITAL % BASO 0.1 % 06/15/2022 [place] 1:52 AM CDT HOSPITAL ABSOLUTE 8.8 (H) 1.7 - 7.0 06/15/2022 [place] NEUTROPHILS thou/cu mm 1:52 AM CDT HOSPITAL ABSOLUTE 0.2 (L) 0.9 - 2.9 06/15/2022 [place] LYMPHOCYTES thou/cu mm 1:52 AM CDT HOSPITAL ABSOLUTE 0.3 <0.9 06/15/2022 [place] MONOCYTES thou/cu mm 1:52 AM CDT HOSPITAL ABSOLUTE 0.1 <0.5 06/15/2022 [place] EOSINOPHILS thou/cu mm 1:52 AM CDT HOSPITAL ABSOLUTE 0.0 <0.3 06/15/2022 [place] BASOPHILS thou/cu mm 1:52 AM T HOSPITAL Specimen Anatomical Collection Method Collection Time Receive d Time (Source) Location / / Volume Laterality Blood BLOOD SPECIMEN / Butterfly / 06/15/2022 1:45 AM 06/15 1:49 Unknown Unknown CDT AM CDT Narrative [facility] - 06/15/2022 1:52 AM C DT WBC MUST ALSO BE ORDERED, [id number] Kyle Fontenot DO HEMATOLOGY Performing Organization Address City/[facility]/ZIP Code Phon e Number [facility] [address] [address] (ABNORMAL) Hemoglobin A1C (06/15/2022 1:45 AM CDT)Only the most recent of2 resultswithin the time period is included. Analysis Performed At Patho logist Time Signature HEMOGLOBIN A1C 8.8 (H) <=6.4 % 06/16/2022 [facility] 8:31 PM CDT HOSPITAL (POCT) LABORATORY Specimen Anatomical Collection Method Collection Time Receive d Time (Source) Location / / Volume Laterality Blood BLOOD SPECIMEN / Add On / Unknown 06/15/2022 1:45 AM 1 Unknown CDT 10:06 AM CDT Narrative [facility] LABORATORY - 06/16/2022 8:31 PM CDT ? [...] Organization Address City/State/ZIP Code Phon e Number [facility] LABORATORY SENDOUT INTERNAL ZIP [place], [place] [phone] [facility] SCAN-CARDIAC STRIP (06/15/2022 12:00 AM CDT) Narrative [...] of2 resultswithin the time period is included. [facility] Method Time Signature RBC 3-5 (A) 0-2, None [facility]/14/2022 [facility] /HPF 11:14 PM [facility] LABORATORY WBC 6-10 (A) 0-2, 3-5, 06/14/2022 [place] None Seen 11:14 PM T [facility] /HPF LABORATORY BACTERIA Few None 06/14/2022 [facility] Seen, 11:14 PM T [facility] Rare, Few LABORATORY Bacteria/ HPF EPITHELIAL Few None 06/14/2022 [facility] CELLS Seen, Few 11:14 PM [facility] Epi/HPF LABORATORY Mucus Present 06/14/2022 [place] 11:14 PM [facility] LABORATORY WHITE CELL Present (A) (none) [facility]14 PM [facility] LABORATORY Specimen Anatomical Collection Method Collection Time Receive d Time (Source) Location / / Volume Laterality Urine URINE SPECIMEN / Non-Blood / 06/14/2022 10:59 022 Unknown Unknown PM CDT 11:01 PM CDT Rosenda Blancas MD URINE Performing Organization Address City/State/ZIP Code Phon e Number [facility] LABORATORY [address] [place] [address] (ABNORMAL) UA W/ SEDIMENT EXAM REFLEXED PER CRITERIA (06/14/2022 10:59 PM CDT) Only the most recent of2 resultswithin the time period is included. [facility] Method Time Signature COLOR Yellow Yellow Color 06/14/2022 [place] 11:07 PM T [facility] LABORATORY CLARITY Clear Clear 06/14/2022 [facility] Clarity 11:07 PM T [facility] LABORATORY SPECIFIC 1.025 1.010, 06/14/2022 [place] GRAVITY,URINE 1.015, 11:07 PM [facility] MEDICAL 1.020, 1.025 CENTER LABORATORY PH,URINE 6.0 6.0, 7.0, 06/14/2022 [place] 8.0, 5.5, 11:07 PM [facility] MEDICAL 6.5, 7.5, CENTER 8.5 LABORATORY UROBILINOGEN, Normal Normal EU/dl 06/14/2022 [place] QUALITATIVE 11:07 PM [facility] LABORATORY PROTEIN, 100 (A) Negative 06/14/2022 [facility] URINE mg/dL 11:07 PM [facility] LABORATORY GLUCOSE, >=1000 (A) Negative 06/14/2022 [facility] UR[facility] mg/dL 11:07 PM [facility] LABORATORY KETONES,URINE Negative Negative 06/14/2022 [facility] mg/dL 11:07 [facility] LABORATORY BILIRUBIN,URI Negative Negative 06/14/2022 [facility] NE 11:07 PM [facility] LABORATORY OCCULT Small (A) Negative 06/14/2022 [facility] BLOOD,URINE 11:07 [facility] LABORATORY NITRITE Negative Negative 06/14/2022 [facility] 11:07 PM [facility] LABORATORY LEUKOCYTE Negative Negative 06/14/2022 [facility] ESTERASE 11:07 PM [facility] LABORATORY Specimen Anatomical Collection Method Collection Time Receive d Time (Source) Location / / Volume Laterality Urine URINE SPECIMEN / Non-Blood / 06/14/2022 10:59 022 Unknown Unknown PM CDT 11:01 PM CDT Rosenda Blancas MD URINE Performing Organization Address City/State/ZIP Code Phon e Number [facility]OR[facility]ORY [address] [place] [address] LACTATE VENOUS (06/14/2022 8:41 PM CDT)Only the most recent of4 resultswithin the time period is included. P athologist Signature LACTATE,VENOUS 1.7 0.5 - 2.0 06/14/2022 [place] mmol/L 8:59 PM [facility] LABORATORY Specimen Anatomical Collection Method / Collection Time Recei laura Time (Source) Location / Volume Laterality Blood BLOOD SPECIMEN / Venipuncture / 06/14/2022 8:41 2021 8:43 Unknown Unknown PM CDT PM CDT Rosenda Blancas MD CHEMISTRY Performing Organization Address City/State/ZIP Code Phon e Number [facility] [address] [place] [address] CT CHEST WO (06/14/2022 7:52 PM CDT) Anatomical Region Laterality Modality CHEST, THORAX, HEART Computed Tomography Specimen (Source) Anatomical Collection Method Collection Time Re ceived Time Location / / Volume Laterality 06/14/2022 8:25 PM CDT Narrative 06/14/2022 8:25 PM CDT For Patients: ??As a result of the Cures Act, medical imaging exams and procedure report s are released immediately into your [facility] medical record. ??You may view this report [...] note that all CT scans at this [facility] use dose modulation, iterative reconstruction, and/or [...] provider. If you have questions, please contact [facility] care provider. Indication: Shortness of breath Technique: [...] note that all CT scans at this [facility] use dose modulation, iterative reconstruction, and/or [...] report s are released immediately into your [facility] medical record. ??You may view this report [...] note that all CT scans at this [facility] use dose modulation, iterative reconstruction, and/or [...] provider. If you have questions, please contact [facility] health care provider. Indication: Trauma Technique: Volumetric [...] note that all CT scans at this [facility] use dose modulation, iterative reconstruction, and/or [...] report s are released immediately into your [facility] medical record. ??You may view this report [...] note that all CT scans at this [facility] use dose modulation, iterative reconstruction, and/or [...] note that all CT scans at this [facility] use dose modulation, iterative reconstruction, and/or weight-based dosing when appropriate to reduce radiation dose to as low as reasonably achievable. Dictated by Estevan Tubbs MD @ 06/14/20 22 8:16:47 PM (Electronically Signed) Rosenda Blancas MD CT BLOOD CULTURE (06/14/2022 6:36 PM CDT)Only the most recent of4 resultswithin the time period is included. athologist Signature CULTURE No growth 06/19/2022 [place] to date. 9:55 PM CDT [facility] LAB[facility] Specimen Anatomical Collection Method / Collection Time Recei laura Time (Source) Location / Volume Laterality Blood BLOOD SPECIMEN / Venipuncture / 06/14/2022 6:36 2021 6:42 Unknown Unknown PM CDT PM CDT Rosenda Blancas MD MICROBIOLOGY Performing Organization Address City/State/ZIP Code Phon e Number [facility] [address] [place] [address] TROPONIN I (06/14/2022 6:35 PM CDT)Only the most recent of2 resultswithin the time period is included. athologist Signature TROPONIN I 0.019 <0.034 06/14/2022 [place] ng/mL 7:11 PM CDT [facility] Specimen Anatomical Collection Method / Collection Time Recei laura Time (Source) Location / Volume Laterality Blood BLOOD SPECIMEN / Venipuncture / 06/14/2022 6:35 2021 6:42 Unknown Unknown PM CDT PM CDT Rosenda Blancas MD CHEMISTRY Performing Organization Address City/[facility] Phon e Number [facility] [address] [place] [address] (ABNORMAL) BRAIN NATRIURETIC PEPTIDE (06/14/2022 6:35 PM CDT)Only the most recent of4 resultswithin the time period is included. athologist [facility] BRAIN FILIPPO 116 (H) <100 pg/mL 06/14/2022 [place] PEPTIDE 7:12 PM CDT [facility] LABORAT[facility] Specimen Anatomical Collection Method / Collection Time Recei laura Time (Source) Location / Volume Laterality Blood BLOOD SPECIMEN / Venipuncture / 06/14/2022 6:35 2021 6:42 Unknown Unknown PM CDT PM CDT Rosenda Blancas MD CHEMISTRY Performing Organization Address City/[facility] Phon e Number [facility] [address] [place] [address] (ABNORMAL) COVID 19 (06/14/2022 6:34 PM CDT)Only the most recent of2 results within the time period is included. [facility] gist Method Time Signature COVID 19 Detected (A) Not detected 06/14/2022 [place] 6:59 PM CDT [facility] LABORATORY Specimen Anatomical Location / Collection Method Collection Selvin e Received Time (Source) Laterality / Volume Other SPECIMEN FROM Non-Blood / 06/14/2022 6:34 06/14/2022 6:37 NASOPHARYNGEAL Unknown PM CDT PM CDT STRUCTURE / Unknown Narrative [facility] - 6:59 PM CDT This test [...] Rosenda Blancas MD MICROBIOLOGY Performing Organization Address [facility] Phon e Number [facility] [address] [place] [address] COVID 19 COLLECTION (06/14/2022 6:34 PM CDT)Only the most recent of2 results within the time period is included. [facility] gist Method Time Signature TESTING [facility] 06/14/2022 [place] [facility] Laboratory 6:38 PM [facility] Comment: Specimen submitted to [facility] for testing. Specimen Anatomical Location / Collection Method Collection Selvin e Received Time (Source) Laterality / Volume Other SPECIMEN FROM Non-Blood / 06/14/2022 6:34 06/14/2022 6:37 NASOPHARYNGEAL Unknown PM CDT PM CDT STRUCTURE / Unknown Rosenda Blancas MD SEND OUTS Performing Organization Address [facility] Phon e Number [facility] [address] [place] [address] POTASSIUM (06/05/2022 5:47 AM CDT) P athologist Signature POTASSIUM 4.0 3.5 - 5.0 06/05/2022 [place] mmol/L 6:36 AM T [facility] Specimen Anatomical Collection Method / Collection Time Recei laura Time (Source) Location / Volume Laterality Blood BLOOD SPECIMEN / Venipuncture / 06/05/2022 5:47 2021 6:05 Unknown Unknown AM CDT AM CDT Víctor Schuler DO CHEMISTRY Performing Organization Address [facility] Phon e Number [facility] [address] [place] [address] (ABNORMAL) BLOOD GAS,VENOUS (06/03/2022 5:47 AM CDT)Only the most recent of2 resultswithin the time period is included. [facility] gist Method Time Signature PH, VENOUS 7.32 7.32 - 7.43 [facility] PCO2, VENOUS 41 41 - 51 06/03/2022 [facility] mmHg 6:09 AM [facility] PO2, VENOUS 45 (H) 35 - 40 06/03/2022 [place] mmHg 6:09 AM [facility] HCO3,VENOUS 21 (L) 22 - 29 06/03/2022 [facility] mmol/L 6:09 AM [facility] BASE EXCESS, -4.8 (L) -2.0 - 3.0 06/03/2022 [place] VENOUS, POCT 6:09 AM [facility] O2 SATURATION, 83 (H) 70 - 75 % 06/03/2022 [place] VENOUS 6:09 AM [facility] PATIENT 37.0 Degrees C 06/03/2022 [place] TEMPERATURE 6:09 AM [facility] Specimen Anatomical Collection Method / Collection Time Recei laura Time (Source) Location / Volume Laterality Blood VENOUS BLOOD Venipuncture / 06/03/2022 5:47 06/03/2022 6:02 SPECIMEN / Unknown Unknown AM CDT AM CDT Víctor Schuler DO CHEMISTRY Performing Organization Address [facility] Phon e Number [facility] [address] [place] [address] US RENAL BILATERAL (06/02/2022 3:34 PM CDT) [...] s are released immediately into your anshul AbilTo medical record. ??You may view this report [...] 8:43 PM (Electronically Signed) Víctor Schuler DO (ABNORMAL) URINE CULTURE (06/02/2022 12:45 AM CDT) [facility] [employer] Method Time Signature CULTURE RESULT (A) 06/04/2022 [facility] 7:59 AM CDT LABORAT[facility] TRAL LABORATORY CULTURE >100,000 CFU/mL 06/04/2022 [facility] Escherichia coli 7:59 AM CDT LABORATORY- [facility] LABORATORY CULTURE <10,000 CFU/mL 06/04/2022 [facility] Multiple 7:59 AM CDT LABORATORY-[facility] organisms TRAL [...] Organization Address City/State/ZIP Code Phon e Number [facility] [address] [place] [address] LABORATORY-CENTRAL 2000 LABORATORY INFLUENZA A/B/H1N1 PCR (06/02/2022 12:39 AM CDT) [facility] [employer] Method Time Signature INFLUENZA A NOT Detected [...] Cayetano Shay MD MICROBIOLOGY Performing Organization Address City/[facility]/ZIP Code Phon e Number [facility] [address] [place] [address] EKG 12 Lead (06/02/2022 12:29 AM CDT) [...] NOW QTc 415 ms BEYOND NOW P [place] degrees BEYOND NOW R [place] 26 degrees BEYOND NOW T [place] 26 degrees BEYOND NOW Specimen Anatomical Collection Method Collection Time Receive d Time (Source) Location / / Volume Laterality 06/02/2022 12:29 06/02/2022 4:21 AM CDT AM CDT Cayetano Shay MD EKG ORD Performing Organization Address City/[facility]/ZIP Code Phon e Number BEYOND NOW [place], [place] (ABNORMAL) C-REACTIVE PROTEIN (06/02/2022 12:25 AM CDT) Analysis Performed At Patho logist Time [facility] C-REACTIVE 1.36 (H) <0.50 06/02/2022 [place] PROTEIN mg/dL 5:38 AM CDT [facility] Specimen Anatomical Collection Method Collection Time Receive d Time (Source) Location / / Volume Laterality Blood BLOOD SPECIMEN / Butterfly / 06/02/2022 12:25 022 Unknown Unknown AM CDT 12:29 AM CDT Giovanni Lara MD CHEMISTRY Performing Organization Address City/[facility]/ZIP Code Phon e Number [facility] [address] [place] [address] from Last 3 Months Additional Health Concerns Infection Onset Date Last Indicated MRSA ClearanceComment: If >12 months sin ce positive culture, precautions can be discontinued if patient has no MRSA risk factors. 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 right check exclusions for contact precaution dis continuation (if > 12 months since positive culture): resides in acute/longterm care, receiving hemodialysis, has chronic open wounds/skin [...] Group Dates MEDICARE PART MEDICARE PART A [id number] 2011-Prese A TTN: CLAIMS A - HB USE HB ONLY nt [address] [place] [address] MEDICARE PART MEDICARE PART B [id number] 2012-Pres A TTN: CLAIMS B - HB USE HB ONLY [place] [address] [place] [address] MEDICARE - PB MEDICARE PB [id number] 2014-Prese ATTN: CLAIMS USE ONLY ONLY nt [address] [place] [address] BLUE CROSS BLUE CROSS OF [id number] 2016-Prese [address] [place] [address] BLUE CROSS BLUE CROSS OF [id number] 2013-Prese [address] [place] [address] MEDICARE PPS HC MEDICARE PPS [id number] 2011-Prese [address] [place] [address] Elinor Guthrie Personal/Family Self [address] (Home) [place] [address] Elinor Guthrie Personal/Family Self [address] (Home) [place] [address] Elinor Guthrie Snf Self [address] (Home) [place] [address] Advance Directives Documents on File Type Date Recorded Patient Operations Staff Specialist Security Explanati on POLST 09/26/2020 Latest Code Status [...] PM Code Status Discussion: Discussed Care Teams Commercial Journeyman Electrician Relationship Specialty Start Date End Date Momo Forbes MD PCP - General Family Practice 01/22/211999 [place] [address]
--- OUTSIDE RECORDS SUMMARY | 2022-07-29 12:54 | XMS_ITS | Encounter Summary ---
:1950 Author Organization [place] Address [address] [place] [address] Care Team Providers Name Role Phone Momo Forbes Primary Care Provider Joseph Quintana MD Unavailable Encounter Details Date Type Department Care Team Description 01/27/2021 External Order [facility] Outside, Provider Results Transplant Clinic [address] [place] [phone] Social History Tobacco Use Types Packs/Day [...] with platelets differential (01/27/2021 11:45 AM CDT) [facility] gist Method Time Signature WBC Count [...] filedocumented in this encounter Care Teams Electrical Repairer Relationship Specialty Start Date End Date Momo Forbes PCP - General Family Practice 01/02/14 [facility] [address] [place] [address] Joseph Quintana, Assigned Nephrology 03/29/21 MD Provider [address] [place] [address] [address] [place] [address] documented as of this encounter
--- OUTSIDE RECORDS SUMMARY | 2022-07-29 12:54 | XMS_ITS | Encounter Summary ---
:1950 Author Organization [place] Address [facility] [place] [address] Care Team Providers Name Role Phone Momo [...] filedocumented in this encounter Care Teams Electrical Mechanic Relationship Specialty Start Date End Date Momo Forbes PCP - General Family Practice 01/02/14 [facility] [address] [place] [address] documented as of this encounter
--- OUTSIDE RECORDS SUMMARY | 2022-07-29 12:54 | XMS_ITS | Encounter Summary ---
:1950 Author Organization [place] Address [facility] [address] Care Team Providers Name Role Phone Momo Forbes Primary Care Provider Reason for Visit Reason Onset Date Comments Transplant 02/03/2021 spoke w pt and donna rmed annual neph appt on 03/05/21 Encounter Details Date Type Department Care Team Description 02/03/2021 Telephone [facility] Barbie Ugalde (spoke w pt Transplant Clinic BOGDAN Nam and confirmed annual [address] [facility] SE neph appt on 03/05/21) [place] [address] Social History Tobacco Use [...] filedocumented in this encounter Care Teams Car Salesperson Relationship Specialty Start Date End Date Momo Forbes PCP - General Family Practice 01/02/14 [facility] [address] [place], [place] [id number] documented as of this encounter
--- OUTSIDE RECORDS SUMMARY | 2022-07-29 12:54 | XMS_ITS | Encounter Summary ---
:1950 Author Organization [place] Address [address] [place] [address] Care Team Providers Name Role Phone Momo Forbes Primary Care Provider Joseph Quintana MD Unavailable Encounter Details Date Type Department Care Team Description 04/29/2022 External Order [facility] Outside, Provide r Results Molecular Diagnostic s [address] [place] [phone] Social History Tobacco Use Types Packs/Day Years [...] ORDERABLES Performing Organization Address City/[facility] Code Phon e Number [facility] NON-INTERFACED [...] on filedocumented in this encounter Care Teams Section Chief Relationship Specialty Start Date End Date Momo Forbes PCP - General Family Practice 01/02/14 [facility] [address] [place] [address] Joseph Quintana, Assigned Nephrology 03/29/21 Provider 717 [facility] 353 [facility] [address] [place] [address] documented as of this encounter
--- OUTSIDE RECORDS SUMMARY | 2022-07-29 12:54 | XMS_ITS | Encounter Summary ---
:1950 Author Organization [place] Address [address] [place] [address] Care Team Providers Name Role Phone Momo Forbes Primary Care Provider Mariano, Joseph Durham MD Unavailable Reason for Visit Reason Onset Date Comments Left Message To Call 05/06/2022 Left 05/06/2022 at 11:55PM., Wanted to discuss lab results Encounter Details Date Type Department Care Team Description 05/06/2022 [facility] Gretta Peacock RN Left Message To Call Transplant Clinic (Left 05/06/2022 at 9 [facility] SE 11:55PM., Wanted to [place], [place] discuss lab results) [phone] Social History [...] filedocumented in this encounter Care Teams Needle Loom Operator Helper Relationship Specialty Start Date End Date Momo Forbes PCP - General Family Practice 01/02/14 [facility] [address] [place] [address] Joseph Quintana, Assigned Nephrology 03/29/21 MD Provider 717 [facility] 353 [facility] [address] [place] [address] documented as of this encounter
--- OUTSIDE RECORDS SUMMARY | 2022-07-29 12:54 | XMS_ITS | Encounter Summary ---
:1950 Author Organization [place] Address [address] [place] [address] Care Team Providers Name Role Phone Momo Forbes Primary Care Provider Joseph Quintana MD Unavailable Encounter Details Date Type Department Care Team Description 01/19/2022 External Order [facility] Outside, Provide r Results Molecular Diagnostic s [address] [place] [address] Social History Tobacco Use Types Packs/Day Years [...] External Culture Results (01/19/2022 12:11 PM CDT) [facility] Method Time Signature Scan Culture See Scanned NON-INTERFACE Results Report D (ONBASE (External) SCANS) Specimen (Source) Anatomical Collection Method Collection Time Re ceived Time Location / / Volume Laterality 01/19/2022 12:11 PM CDT Narrative [facility] - 01/25/2022 2:48 PM CDT Verified by Priscilla Mcdaniel on 01/25/2022. Provider Outside LABORATORY Performing Organization Address City/[facility]/ZIP Code Phon e Number [facility] [...] LAB - URINE ORDERABLES Performing Organization Address City/[facility] Phon e Number [facility] NON-INTERFACED (ONBASE [...] UA with Microscopic (01/19/2022 11:16 AM CDT) [facility] gist Method Time Signature Color Urine YEL YELLOW NON-INTERFAC (External) ED (ONBASE SCANS) Appearance Urine CLEAR CLEAR NON-INTERFAC (External) ED (ONBASE SCANS) Glucose Urine 2+ NEGATIVE NON-INTERFAC (External) ED (ONBASE SCANS) Bilirubin Urine NEG NEGATIVE NON-INTERFAC (External) ED (ONBASE SCANS) Ketones Urine NEG NEGATIVE NON-INTERFAC (External) ED (ONBASE SCANS) Specific [place] 1.010 1.005 - NON-INTERFAC Urine (External) 1.030 [...] filedocumented in this encounter Care Teams Business Transformation Consultant Relationship Specialty Start Date End Date Momo Forbes PCP - General Family Practice 01/02/14 [facility] [address] [place] [address] Joseph Quintana, Assigned Nephrology 03/29/[address] [place] [address] [address] [place], [place] [id number] documented as of this encounter
--- OUTSIDE RECORDS SUMMARY | 2022-07-29 12:54 | XMS_ITS | Encounter Summary ---
:1950 Author Organization [place] Address [address] [place] [address] Care Team Providers Name Role Phone ForbesMomo Primary Care Provider Reason for Visit Reason Comments RECHECK Follow Up [place] Encounter Details Date Type Department Care Team Description 03/05/2021 Virtual Visit [facility] Joseph Quintana HTN, kevan dney transplant related (Primary Dx); Nephrology Clinic MD Herminio Kidney replaced by transplant; [address] Aftercare following organ tr ansplant; [address] [place] [address] SE RANJAN 353 [facility] Immunosu ppression (H); SE 1932 Vitamin D deficiency; [place] [phone] [phone] Social History Tobacco Use Types Packs/Day Years [...] would you like to be contacted at? [phone] How would you like to obtain your [...] unspecified documented in this encounter Care Teams Financial Operations Consultant Relationship Specialty Start Date End Date Momo Forbes PCP - General Family Practice 01/02/14 [facility] [address] [place] [address] documented as of this encounter
--- OUTSIDE RECORDS SUMMARY | 2022-07-29 12:54 | XMS_ITS | Encounter Summary ---
:1950 Author Organization [place] Address [address] [facility] [place] [address] Care Team Providers Name Role Phone Momo Forbes Primary Care Provider Joseph Quintana MD Unavailable Encounter Details Date Type Department Care Team Description 06/02/2022 Documentation Only [facility] Dash Gómez am, MD Nephrology Clinic [address] [place] [phone] Social History Tobacco Use Types Packs/Day Years [...] Satish Gómez MD, [place] Transplant Nephrology Pager: [phone] documented in this encounter Plan of Treatment Not on filedocumented as of this encounter Visit Diagnoses Not on filedocumented in this encounter Care Teams Rn Geriatric Relationship Specialty Start Date End Date Momo Forbes PCP - General Family Practice 01/02/14 [facility] [address] [place] [address] Joseph Quintana, Assigned Nephrology 03/29/21 MD Provider 717 [facility] 353 [facility] [address] [place] [address] documented as of this encounter
--- OUTSIDE RECORDS SUMMARY | 2022-07-29 12:54 | XMS_ITS | Encounter Summary ---
:1950 Author Organization [place] Address [address] [place] [address] Care Team Providers Name Role Phone Momo Forbes Primary Care Provider Joseph Quintana MD Unavailable Encounter Details Date Type Department Care Team Description 11/16/2021 External Order [facility] Outside, Provide r Results Molecular Diagnostic s [address] [place] [phone] Social History Tobacco Use Types Packs/Day Years [...] City/State/[facility] Code Phon e Number B[facility]ZE [...] on filedocumented in this encounter Care Teams Contact Lens Flashing Puncher Relationship Specialty Start Date End Date Momo Forbes PCP - General Family Practice 01/02/14 [facility] [address] [place] [address] Joseph Quintana, Assigned Nephrology 03/29/21 Provider 7 [facility] 353 [facility] [address] [place] [address] documented as of this encounter
--- OUTSIDE RECORDS SUMMARY | 2022-07-29 12:54 | XMS_ITS | Encounter Summary ---
:1950 Author Organization [place] Address [address] [place] [address] Care Team Providers Name Role Phone Momo Forbes Primary Care Provider Joseph Quintana MD Unavailable Encounter Details Date Type Department Care Team Description 12/09/2021 External Order [facility] Outside, Provide r Results Molecular Diagnostic s [address] [place] [phone] Social History Tobacco Use Types Packs/Day Years [...] (12/09/2021 11:50 AM CDT) Analysis Performed At [facility] logist Time Signature WBC Count 7.68 [...] on filedocumented in this encounter Care Teams Rap Artist Relationship Specialty Start Date End Date Momo Forbes PCP - General Family Practice 01/02/14 [facility] [address] [place] [address] Joseph Quintana, Assigned Nephrology 03/29/21 MD Provider [address] [place] [address] [address] [place], [place] [address] documented as of this encounter
--- OUTSIDE RECORDS SUMMARY | 2022-07-29 12:54 | XMS_ITS | Encounter Summary ---
:1950 Author Organization [place] Address [address] [place] [address] Care Team Providers Name Role Phone Momo Forbes Primary Care Provider Joseph Quintana MD Unavailable Reason for Visit Reason Onset Date Comments Call Back 06/18/2022 Medications Encounter Details Date Type Department Care Team Description 06/18/2022 Telephone [facility] Satish Gómez MD Call Back (Medications) Nephrology Clinic [address] [place] [phone] Social History Tobacco Use Types Packs/Day Years [...] 06/21/2022 2:28 PM CDT General Route to FERN CUTTER Reason for call: [place] was returning a missed call Call back needed? Yes Return Call Needed Same as documented in contacts section When to return call?: Same day: Route High Priority Telephone Encounter - Luann Lagunas - 06/18/2022 12:12 PM CDT [facility] Call Center Phone Message May [...] Please have Dr. Gómez reach out to [facility] [phone] - [facility]. Thanks Action Taken: Message routed to: [facility] Neph Travel Screening: Not Applicable documented in this encounter Plan of Treatment Not on filedocumented as of this encounter Visit Diagnoses Not on filedocumented in this encounter Care Teams Toll Bridge Attendant Relationship Specialty Start Date End Date Momo Forbes PCP - General Family Practice 01/02/14 [facility] [address] [place] [address] Joseph Quintana, Assigned Nephrology 03/29/21 MD Provider 717 [facility] 353 [facility] 1932 [place], [place] [address] documented as of this encounter
--- OUTSIDE RECORDS SUMMARY | 2022-07-29 12:54 | XMS_ITS | Encounter Summary ---
:1950 Author Organization [place] Address [address] [place] [address]. [place] [address] Care Team Providers Name Role Phone Momo Forbes Primary Care Provider Joseph Quintana MD Unavailable Reason for Visit Reason Onset Date Comments Medication Refill Refill Request 08/20/2021 Encounter Details Date Type Department Care Team Description 08/20/2021 Refill [facility] Joseph Quintana on Refill; Nephrology Clinic MD Herminio Refill Request [address] 909 [facility] 353 [facility] 1932 [place], [place] [address] [phone] Social History Tobacco Use Types Packs/Day Years [...] transplant documented in this encounter Care Teams Radiator Core Tester Relationship Specialty Start Date End Date Momo Forbes PCP - General Family Practice 01/02/14 [facility] [address] [place] [address] Joseph Quintana, Assigned Nephrology 03/29/21 MD Provider 717 [facility] 353 [facility] [address] [place] [address] documented as of this encounter
--- OUTSIDE RECORDS SUMMARY | 2022-07-29 12:54 | XMS_ITS | Encounter Summary ---
:1950 Author Organization [place] Address [facility] [place] [address] Care Team Providers Name Role Phone Momo Forbes Primary Care Provider Joseph Quintana MD Unavailable Reason for Visit Reason Onset Date Comments Transplant 09/22/2021 Encounter Details Date Type Department Care Team Description [facility] BOGDAN Nam [address] [place] [phone] Social History Tobacco Use Types Packs/Day Years Used Date Smoking Tobacco: Former Cigars Quit : 08/22/2006 Smokeless Tobacco: Never Alcohol Use Standard Drinks/Week Comments Yes 0 (1 standard drink = 0.6 oz pure alcoho l) occasional drink. Sex Assigned at Date Recorded Not on file documented as of this encounter Miscellaneous Notes Telephone Encounter - Barbie Ugalde RN - 09/22/2021 2:16 PM THREAD MARKER Post discharge from [facility] 09/20/21; to rehab/TCU due to wound on stump; can't wear prosthetic until healed. UTI on Cephelaxin 500 mg TID. Katharine TCU Unit Phone [facility] station [phone] Phone BOGDAN Baker [phone] Discussed Prograf dose was 1.5 mg at hospital. Should be 1 mg AM/0.5 mg PM. Repeat level with [facility] 09/24/21. Verbal orders taken by admissions. Barbie Crisostomo, RN, BSN Solid Organ Transplant, Post Kidney and Pancreas Transplant [place] [phone] AD MARKER Telephone Encounter - MichaelAzael Deann - 09/22/2021 12:09 PM CST Katharine under the new name [facility] TCU has questions regarding medicationsand lab. AD MARKER documented in this encounter Plan of Treatment Not on filedocumented as of this encounter Visit Diagnoses Not on filedocumented in this encounter Care Teams Pigeon Fancier Relationship Specialty Start Date End Date Momo Forbes PCP - General Family Practice 01/02/14 [facility] [address] [place] [address] Joseph Quintana, Assigned Nephrology 03/29/21 MD Provider [address] [place] [address] [address] [place] [address] documented as of this encounter
--- OUTSIDE RECORDS SUMMARY | 2022-07-29 12:54 | XMS_ITS | Encounter Summary ---
:1950 Author Organization [place] Address [address] [place] [address] Care Team Providers Name Role Phone Momo Forbes Primary Care Provider Mariano, Joseph Durham MD Unavailable Reason for Visit Reason Onset Date Comments Transplant Lab 12/10/2021 Encounter Details Date Type Department Care Team Description 12/10/2021 Telephone [facility] Transplant Mati Recinos RN Transplant Lab Clinic [address] [place] [address] [phone] Social History Tobacco Use Types Packs/Day [...] on filedocumented in this encounter Care Teams Protocol Officer Relationship Specialty Start Date End Date Momo Forbes PCP - General Family Practice 01/02/14 [facility] [address] [place] [address] Joseph Quintana, Assigned Nephrology 03/29/21 MD Provider [address] [place] [address] [address] [place], [place] [id number] documented as of this encounter
--- OUTSIDE RECORDS SUMMARY | 2022-07-29 12:54 | XMS_ITS | Encounter Summary ---
:1950 Author Organization [place] Address [address] [place] [address] Care Team Providers Name Role Phone Momo Forbes Primary Care Provider Joseph Quintana MD Unavailable Reason for Visit Reason Onset Date Comments Transplant 01/21/2022 Hyperglycemia, eleva moni [facility] Encounter Details Date Type Department Care Team Description 01/21/2022 Telephone [facility] Gretta Peacock RN Trans plant Transplant Clinic (Hyperglycemia, elevated [address] [facility]) [place] [address] Social History Tobacco Use Types [...] 12:07 PM CDT ISSUE: trend up in [facility], hyperglycemia OUTCOME: phone call attempted X3. Will send letter via mail. Gretta Peacock driver license technicianDirector [facility] [phone] documented in this encounter Plan of Treatment Not on filedocumented as of this encounter Visit Diagnoses Not on filedocumented in this encounter Care Teams Torch Straightener And Heater Relationship Specialty Start Date End Date Momo Forbes PCP - General Family Practice 01/02/14 [facility] [address] [place] [address] Joseph Quintana, Assigned Nephrology 03/29/21 MD Provider [address] [place] [address] [address] [place] [address] documented as of this encounter
--- OUTSIDE RECORDS SUMMARY | 2022-07-29 12:54 | XMS_ITS | Encounter Summary ---
:1950 Author Organization [place] Address [facility] [place] [address] Care Team Providers Name Role Phone Momo Forbes Primary Care Provider Joseph Quintana MD Unavailable Encounter Details Date Type Department Care Team Description 02/02/2021 External Order [facility] Outside, Provider Results Transplant Clinic [address] [place] [phone] Social History Tobacco Use Types Packs/Day [...] Cassie Florian on 02/04/2021. Performed by: [facility] [address] [place], [place] ??[address] Patient Reported LABORATORY Performing Organization Address City/State/ZIP Code Phon e Number JESSICA PFT COVID-19 EXTERNAL COVID-19 [place] [address], [facility] RESULTS Result Scanned into Patient Record by Mohound Refer to Result Comment/Narrative for exact performing laboratory documented in this encounter Visit Diagnoses Not on filedocumented in this encounter Care Teams Terrazzo Laborer Relationship Specialty Start Date End Date Momo Forbes PCP - General Family Practice 01/02/14 [facility] [address] [place] [address] Joseph Quintana, Assigned Nephrology 03/29/21 MD Provider 717 [facility] 353 [facility] [address] [place] [address] documented as of this encounter
--- OUTSIDE RECORDS SUMMARY | 2022-07-29 12:54 | XMS_ITS | Encounter Summary ---
:1950 Author Organization [place] Address [facility] [place] [address] Care Team Providers Name Role Phone Momo Forbes Primary Care Provider Joseph Quintana MD Unavailable Reason for Visit Reason Onset Date Comments Refill Request 08/25/2021 Prograf 0.5mg Encounter Details Date Type Department Care Team Description 08/25/2021 Telephone [facility] Orlando Richey, Refil l Request (Prograf Transplant Clinic 0.5mg) [address] [place] [phone] Social History Tobacco Use Types [...] CPA: [facility] COLLABORATIVE AGREEMENT FOR IMMUNOSUPPRESSENT PRESCRIPTION MODIFICATION. Routing encounter to Transplant as an FYI. 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
--- OUTSIDE RECORDS SUMMARY | 2022-07-29 12:54 | XMS_ITS | Encounter Summary ---
:1950 Author Organization [place] Address [address] [place] [address] Care Team Providers Name Role Phone Momo Forbes Primary Care Provider Joseph Quintana MD Unavailable Reason for Visit Reason Onset Date Comments Transplant Lab 05/04/2021 Encounter Details Date Type Department Care Team Description 05/04/[address] [facility] Transplant Krys Garcia, Transplant Lab Clinic RN [address] [place] [address] [phone] Social History Tobacco Use Types [...] maroon colored stools. Stateshe had colonoscopy with [facility] about a year ago. Appears in CareEverywhere colonoscopy was 03/20/2015. Latrell denies infectious symptoms currently but reports he had R foot surgery at [facility] this last winter for diabetic foot ulcer. Infection in bottom of foot; laid up since Sep. Pretty well healed except a little speck. Follows up with Dr. Chatterjee. Will check iron panel on next labs. Orders sent. Barbie Ugalde, RN, BSN Solid Organ Transplant, Post Kidney and Pancreas Transplant Senior Ui Designer [phone] Telephone Encounter - Krys Garcia RN - 05/04/2021 8:09 AM CDT ISSUE: Falling hemoglobin. documented in this encounter Plan of Treatment Not on filedocumented as of this encounter Visit Diagnoses Not on filedocumented in this encounter Care Teams Group Chief Operator Relationship Specialty Start Date End Date Momo Forbes PCP - General Family Practice 01/02/14 [facility] [address] [place] [address] Joseph Quintana, Assigned Nephrology 03/29/[address] [place] [address] 1932 [place], [place] [address] documented as of this encounter
--- OUTSIDE RECORDS SUMMARY | 2022-07-29 12:54 | XMS_ITS | Encounter Summary ---
:1950 Author Organization [place] Address [facility] [place] [address] Care Team Providers Name Role Phone Momo Forbes Primary Care Provider Joseph Quintana MD Unavailable Reason for Visit Reason Onset Date Comments Erroneous encounter-disregard 05/02/2022 Encounter Details Date Type Department Care Team Description 05/02/2022 [facility] Gretta Peacock, BOGDAN [facility] Transplant Clinic encounter-disregard [address] [place] [phone] Social History Tobacco Use Types [...] on filedocumented in this encounter Care Teams Emulsion Operator Relationship Specialty Start Date End Date Momo Forbes PCP - General Family Practice 01/02/14 [facility] [address] [place] [address] Joseph Quintana, Assigned Nephrology 03/29/21 Provider 717 [facility] 353 [facility] [address] [place] [address] documented as of this encounter
--- OUTSIDE RECORDS SUMMARY | 2022-07-29 12:54 | XMS_ITS | Encounter Summary ---
:1950 Author Organization [place] Address [address] [place] [address] Care Team Providers Name Role Phone Momo Fobres Primary Care Provider Joseph Quintana MD Unavailable Reason for Visit Reason Onset Date Comments Transplant 06/17/2022 Covid reassessment Encounter Details Date Type Department Care Team Description 06/17/2022 Telephone [facility] Gretta Peacock RN [facility] [address] [place] [phone] Social History Tobacco Use Types Packs/Day [...] Covid + 06/01/2022 with inpatient stay at [facility] where MMF was held. Resumed MMF [...] 750mg bid OUTCOME: Patient was readmitted to [facility] with complications of Covid 19 per patient. Difficult to hear patient as he has bad cell phone service at hospital. Spoke with staff member on inpatient unit. Patient is private information unable to be given to RNCC. Provided provider to providernumber to staff member to pass along to RN or inpatient provider. V/U of calling [facility] transplant nephrology to discuss IS. Gretta Peacock campaign advisorScientist Propagator [phone] documented in this encounter Plan of Treatment Not on filedocumented as of this encounter Visit Diagnoses Not on filedocumented in this encounter Care Teams Mechanic Assistant Relationship Specialty Start Date End Date Momo Forbes PCP - General Family Practice 01/02/14 [facility] [address] [place] [address] Joseph Quintana, Assigned Nephrology 03/29/21 MD Provider [address] [place] [address] [address] [place] [address] documented as of this encounter
--- OUTSIDE RECORDS SUMMARY | 2022-07-29 12:54 | XMS_ITS | Encounter Summary ---
:1950 Author Organization [place] Address [facility] [place] [address] Care Team Providers Name Role Phone Momo Forbes Primary Care Provider Mariano, Joseph Durham MD Unavailable Reason for Visit Reason Onset Date Comments Voicemail 04/13/2022 Encounter Details Date Type Department Care Team Description 04/13/2022 Telephone [facility] Transplant Obdulia Peacock, RN Voicemail Clinic [address] [place] [address] [phone] Social History Tobacco Use Types Packs/Day Years Used Date Smoking Tobacco: Former Cigars Quit : 08/22/2006 Smokeless Tobacco: Never Alcohol Use Standard Drinks/Week Comments Yes 0 (1 standard drink = 0.6 oz pure alcoho l) occasional drink. Sex Assigned at Date Recorded Not on file documented as of this encounter Miscellaneous Notes Telephone Encounter - Gretta Pecaock RN - 04/14/2022 9:54 AM CDT ISSUE: patient due for transplant labs OUTCOME: patient agreeable to obtaining labs. Updated labs sent to local lab as well as hard copy sent to patient via mail Gretta Peacock RN End Trimmer [phone] Telephone Encounter - Adriana Raza - 04/13/2022 2:31 PM CDT Voicemail Date/Time: 04/13/22 2:27 pm Reason for call: Diego received a letter stating we have been trying ot reach him so he was responding documented in this encounter Plan of Treatment Not on filedocumented as of this encounter Visit Diagnoses Not on filedocumented in this encounter Care Teams Division Manager Relationship Specialty Start Date End Date Momo Forbes PCP - General Family Practice 01/02/14 [facility] [address] [place] [address] Joseph Quintana, Assigned Nephrology 03/29/21 MD Provider 7 [facility] 353 [facility] 1932 [place] [address] documented as of this encounter
--- OUTSIDE RECORDS SUMMARY | 2022-07-29 12:54 | XMS_ITS | Encounter Summary ---
:1950 Author Organization [place] Address [address] [place] [address] Care Team Providers Name Role Phone Momo Forbes Primary Care Provider Encounter Details Date Type Department Care Team Description 01/30/2021 Telephone [facility] Transplant Viv Torres RN [place] [phone] Social History Tobacco Use Types Packs/Day [...] not included. Message Received: Today Beny Staton, [facility] Barbie Ugalde, BOGDAN Diego has not ordered tacro 0.5mg in over a year. ??He just ordered 1mg today but not the 0.5mg. Beny Staton [facility] Specialty Pharmacist [phone] JOINT TERMINAL ATTACK CONTROLLER task: Can you please call Diego to find out what dose of tacrolimus he is taking and notify coordinator if different than what is prescribed. Recommend repeat tacrolimus level for previously elevated level 7.3, goal 4-6. Thank you, Barbie Ugalde RN, BSN Solid Organ Transplant, Post Kidney and Pancreas Transplant Parking Lot Signaler [phone] Telephone Encounter - Viv Torres RN - [...] documented in this encounter Care Teams Manager Review Relationship Specialty Start Date End Date Momo Forbes PCP - General Family Practice 01/02/14 [place] [address] documented as of this encounter
--- OUTSIDE RECORDS SUMMARY | 2022-07-29 12:54 | XMS_ITS | Encounter Summary ---
:1950 Author Organization [place] Address [address] [place] [address] Care Team Providers Name Role Phone Momo Forbes Primary Care Provider Joseph Quintana MD Unavailable Encounter Details Date Type Department Care Team Description 04/30/2021 External Order [facility] Outside, Provide r Results Molecular Diagnostic s [address] [place] [phone] Social History Tobacco Use Types Packs/Day Years [...] Platelets & Differential (04/30/2021 11:20 AM CDT) [facility] gist Method Time Signature WBC Count [...] in this encounter Care Teams Clinical Laboratory Service Teacher Relationship Specialty Start Date End Date Momo Forbes PCP - General Family Practice 01/02/14 [facility] [address] [place] [address] Joseph Quintana, Assigned Nephrology 03/29/21 MD Provider [address] [place] [address] 1932 [place] [address] documented as of this encounter
--- OUTSIDE RECORDS SUMMARY | 2022-07-29 12:54 | XMS_ITS | Encounter Summary ---
:1950 Author Organization [place] Address [facility] [place] [address] Care Team Providers Name Role Phone Momo Forbes Primary Care Provider Joseph Quintana MD Unavailable Reason for Visit Reason Onset Date Comments Transplant 06/07/2022 Covid reassessment Encounter Details Date Type Department Care Team Description 06/07/2022 Telephone [facility] Gretta Peacock RN Trans [facility] [address] [place] [phone] Social History Tobacco Use Types Packs/Day [...] that. Mycophenolate was held while inpatient at [facility]. Patient was discharged yesterday, Patient resumed his usual dose of MMF 750 mg bid. Current symptoms: cough, denies SOB. States he is feeling well. Will update transplant nephrology. Gretta Peacock RN Database Admin [phone] ADDENDUM: Satish Gómez MD Sveiven, Sara, RN I would actually have him take MMF 500mg bid and if feeling ok in 1 week increase to 750mg bid Patient v/u of taking MMF 500 mg bid for one week. Will reassess symptoms in one week. Gretta Peacock education reviewerDatabase Admin [phone] documented in this encounter Plan of Treatment Not on filedocumented as of this encounter Visit Diagnoses Not on filedocumented in this encounter Care Teams Logistics Planning Engineer Relationship Specialty Start Date End Date Momo Forbes PCP - General Family Practice 01/02/14 [facility] [address] [place] [address] Joseph Quintana, Assigned Nephrology 03/29/21 Provider [address] [place], [place] [address] documented as of this encounter
--- OUTSIDE RECORDS SUMMARY | 2022-07-29 12:54 | XMS_ITS | Encounter Summary ---
:1950 Author Organization [place] Address [facility] [place] [address] Care Team Providers Name Role Phone Momo Forbes Primary Care Provider Joseph Quintana MD Unavailable Reason for Visit Reason Onset Date Comments Refill Request 08/25/2021 Encounter Details Date Type Department Care Team Description 08/25/2021 Refill [facility] Transplant Debbie Calderon LPN Refill Request Clinic [address] [place] [phone] Social History Tobacco Use Types [...] documented in this encounter Care Teams Epic Ambulatory Analyst Relationship Specialty Start Date End Date Momo Forbes PCP - General Family Practice 01/02/14 [facility] [address] [place] [address] Joseph Quintana, Assigned Nephrology 03/29/[address] [place] [address] 353 [facility] [address] [place] [address] documented as of this encounter
--- OUTSIDE RECORDS SUMMARY | 2022-07-29 12:54 | XMS_ITS | Encounter Summary ---
:1950 Author Organization [place] Address [address] [place] [address] Care Team Providers Name Role Phone Momo Forbes Primary Care Provider Mariano, Joseph Durham MD Unavailable Reason for Visit Reason Onset Date Comments Transplant 12/02/2021 Encounter Details Date Type Department Care Team Description 12/02/2021 Telephone [facility] Transplant Obdulia Peacock, acetylene cutter Clinic [address] [place] [address] [phone] Social History Tobacco Use Types Packs/Day [...] confirm he received message. Gretta Peacock RN Filter Cleaner [phone] ADDENDUM: left message for patient stating he has active orders at preferred lab. Asked to please obtain a full set of transplant labs as soon as possible. Gretta Peacock acetylene cutterFilter Cleaner [phone] documented in this encounter Plan of Treatment Not on filedocumented as of this encounter Visit Diagnoses Not on filedocumented in this encounter Care Teams Management Scientist Relationship Specialty Start Date End Date Momo Forbes PCP - General Family Practice 01/02/14 [facility] [address] [place] [address] Joseph Quintana, Assigned Nephrology 03/29/[address] [place] [address] 1932 [place] [address] documented as of this encounter
--- OUTSIDE RECORDS SUMMARY | 2022-07-29 12:54 | XMS_ITS | Encounter Summary ---
:1950 Author Organization [place] Address [address] [place] [address] Care Team Providers Name Role Phone Momo Forbes Primary Care Provider Joseph Quintana MD Unavailable Encounter Details Date Type Department Care Team Description 01/07/2021 External Order [facility] Outside, Provider Results Transplant Clinic [address] [place] [phone] Social History Tobacco Use Types Packs/Day [...] on filedocumented in this encounter Care Teams Costume Specialist Relationship Specialty Start Date End Date Momo Forbes PCP - General Family Practice 01/02/14 [facility] [address] [place] [address] Joseph Quintana, Assigned Nephrology 03/29/21 MD Provider 717 [facility] 353 [facility] [address] [place] [address] documented as of this encounter
--- OUTSIDE RECORDS SUMMARY | 2022-07-29 12:54 | XMS_ITS | Encounter Summary ---
:1950 Author Organization [place] Address [facility] [place] [address] Care Team Providers Name Role Phone Momo Forbes Primary Care Provider Joseph Quintana MD Unavailable Encounter Details Date Type Department Care Team Description 08/25/2021 Orders Only [facility] Jose, Kidney tr ansplanted; Transplant Clinic BOGDAN Marcano -donor kidney transp lant recipient [address] [place] [phone] Social History Tobacco Use Types [...] transplant documented in this encounter Care Teams Publicity Person Relationship Specialty Start Date End Date Momo Forbes PCP - General Family Practice 01/02/14 [facility] [address] [place] [address] Joseph Quintana, Assigned Nephrology 03/29/21 Provider 717 [facility] 353 [facility] 1932 [place], [place] [address] documented as of this encounter
--- OUTSIDE RECORDS SUMMARY | 2022-07-29 12:54 | XMS_ITS | Encounter Summary ---
:1950 Author Organization [place] Address [address] [place] [address] Care Team Providers Name Role Phone Momo Forbes Primary Care Provider Mariano, Joseph Durham MD Unavailable Reason for Visit Reason Onset Date Comments Transplant 11/24/2021 Encounter Details Date Type Department Care Team Description 11/24/2021 Telephone [facility] Transplant Obdulia Peacock, machine builder Clinic [address] [place] [address] [phone] Social History Tobacco Use Types Packs/Day [...] had labs drawn ~one week ago at [facility], however results have not beenfaxed to [facility]. PLAN: call lab to have results faxed OUTCOME: New labs orders sent. Most recent bmp and cbc requested from october 2021. Tac and UPC due. Left detailed message with instructions to obtain tacrolimus trough level and UPC at earliest convenience. Asked for CB to confirm understanding. Gretta Peacock machine builderLaborer Electroplating [phone] Telephone Encounter - Azael Rodriguez - 11/24/2021 3:32 PM CDT Patient called to touch base with the RNCC regarding some questions. documented in this encounter Plan of Treatment Not on filedocumented as of this encounter Visit Diagnoses Not on filedocumented in this encounter Care Teams Test Consultant Relationship Specialty Start Date End Date Momo Forbes PCP - General Family Practice 01/02/14 [facility] [address] [place] [address] Joseph Quintana, Assigned Nephrology 03/29/21 MD Provider [address] [place] [address] 1932 [place] [address] documented as of this encounter
--- OUTSIDE RECORDS SUMMARY | 2022-07-29 12:54 | XMS_ITS | Encounter Summary ---
:1950 Author Organization [place] Address [address] [place] [address] Care Team Providers Name Role Phone Momo Forbes Primary Care Provider Joseph Quintana MD Unavailable Reason for Visit Reason Onset Date Comments Transplant Lab 05/04/2022 Elevated serum creat inine and proteinuria Encounter Details Date Type Department Care Team Description 05/04/[address] [facility] Gretta Peacock RN Trans plant Lab (Elevated Transplant Clinic serum creatinine and [address] proteinuria) [place] [phone] Social History Tobacco Use Types [...] on filedocumented in this encounter Care Teams Travertine Installer Relationship Specialty Start Date End Date Momo Forbes PCP - General Family Practice 01/02/14 [facility] [address] [place] [address] Joseph Quintana, Assigned Nephrology 03/29/[address] [place] [address] documented as of this encounter
--- OUTSIDE RECORDS SUMMARY | 2022-07-29 12:55 | XMS_ITS | Encounter Summary ---
:1950 Author Organization [place] Address [address] [facility] [place] [address] Care Team Providers Name Role Phone Momo Forbes Primary Care Provider Joseph Quintana MD Unavailable Encounter Details Date Type Department Care Team Description 05/26/2020 External Order [facility] Outside, Provider Results Transplant Clinic 9 [place] [phone] Social History Tobacco Use Types [...] with platelets differential (05/26/2020 10:25 AM CDT) [facility] gist [...] on filedocumented in this encounter Care Teams Wax Pattern Repairer Relationship Specialty Start Date End Date Momo Forbes PCP - General Family Practice 01/02/14 [facility] [address] [place] [address] Joseph Quintana, Assigned Nephrology 03/29/21 MD Provider [address] [place] [address] 353 [facility] 1932 [place], [place] [address] documented as of this encounter
--- OUTSIDE RECORDS SUMMARY | 2022-07-29 12:55 | XMS_ITS | Encounter Summary ---
:1950 Author Organization [place] Address [address] [place] [address] Care Team Providers Name Role Phone Momo Forbes Primary Care Provider Reason for Visit Reason Onset Date Comments Transplant 10/23/2020 Encounter Details Date Type Department Care Team Description 10/23/2020 Telephone [facility] Barbie Ugalde nsplant Transplant Clinic BOGDAN Nam [address] [place] [address] [phone] Social History Tobacco Use Types [...] Barbie Ugalde RN - 10/23/2020 1:10 PM DIGITAL PERFORMANCE ANALYST Latrell reports his labs were done yesterday morning at [facility]. Last night ended upat ER at [facility]. Hospital printed out copy of labs and he is worried about creatinine. Latrell states he had R foot infection that needed to be cleaned out; Had surgery last day of August onfoot at [facility]. Was hospitalized 10 days before going to [facility] for recovery. Last night his blood sugar was dropping low into 70s and halfway staff thought his BP was jumping around to much. This morning is BP 130/76, but last night 170s. Explained to Latrell that it has been a year since lastnephrology appointment and he needs to be seen for transplant follow up. He agreed but did not want to schedule at this time but will call back to schedule. Call placed to [facility] lab to fax results. Per Lab need to speak with information management department to release records or go thru [facility] to have orders faxed. Call then [...] and repeating post-transplant labs in 1-2 weeks. TAL PERFORMANCE ANALYST Telephone Encounter - Tasia Mack - 10/23/2020 10:03 AM CST Patient Call: Transplant Lab/Orders Route to ELEVATOR WORKER Post Transplant Days: 2455 When patient is less than 60 days post-transplant, route high priority Reason for Call: Discuss lab results; which results? creatine level Callback needed? Yes Return Call Needed Same as documented in contacts section When to return call?: Greater than one day: Route standard priority TAL PERFORMANCE ANALYST documented in this encounter Plan of Treatment Not on filedocumented as of this encounter Visit Diagnoses Not on filedocumented in this encounter Care Teams Welt Pocket Machine Operator Relationship Specialty Start Date End Date Momo Forbes PCP - General Family Practice 01/02/14 [facility] [address] [place] [address] documented as of this encounter
--- OUTSIDE RECORDS SUMMARY | 2022-07-29 12:55 | XMS_ITS | Encounter Summary ---
:1950 Author Organization [place] Address [address] [address] Care Team Providers Name Role Phone Momo Forbes Primary Care Provider Reason for Visit Reason Onset Date Comments Transplant 01/07/2021 Encounter Details Date Type Department Care Team Description 01/07/2021 Telephone [facility] Barbie Ugalde nsplanlynda Transplant Clinic BOGDAN Nam [address] [place] [address] [phone] Social History Tobacco Use Types Packs/Day [...] CDT Patient Call: Transplant Lab/Orders Route to DRAWER WAXER Post Transplant Days: 2530 When patient is less than 60 days post-transplant, route high priority Reason for Call: Annual lab reorder fax labs to [facility] lab at [phone] Labs drawn Waiting fororders Callback needed? No documented in this encounter Plan of Treatment Not on filedocumented as of this encounter Visit Diagnoses Not on filedocumented in this encounter Care Teams Awning Hanger Helper Relationship Specialty Start Date End Date Momo Forbes PCP - General Family Practice 01/02/14 [facility] [address] [place] [address] documented as of this encounter
--- OUTSIDE RECORDS SUMMARY | 2022-07-29 12:55 | XMS_ITS | Encounter Summary ---
:1950 Author Organization [place] Address [address] [place] [address] Care Team Providers Name Role Phone Momo Forbes Primary Care Provider Joseph Quintana MD Unavailable Encounter Details Date Type Department Care Team Description 08/08/2020 External Order [facility] Outside, Provider Results Transplant Clinic [address] [place] [address] Social History Tobacco Use Types [...] 08/08/2020 11:43 Results f or this AM MCAT INSTRUCTOR procedure are i n the results section. TACROLIMUS BY TANDEM Routine 08/08/2020 11:34 Res ults for this MASS SPECTROMETRY AM MCAT INSTRUCTOR procedure are in the results section. LIPID PROFILE Routine 08/08/2020 11:34 Results fo r this AM MCAT INSTRUCTOR procedure are i n the results section. ALT Routine 08/08/2020 11:34 Results for this AM MCAT INSTRUCTOR procedure are i n the results section. BASIC METABOLIC PANEL Routine 08/08/2020 11:34 Re sults for this AM MCAT INSTRUCTOR procedure are i n the results section. documented in this encounter Results (ABNORMAL) Hemoglobin A1c (08/08/2020 11:43 AM MCAT INSTRUCTOR) Analysis Performed At [facility] Time Signature Hemoglobin A1C 10.2 (H) <=6.9 % LABDE SCAN (External) Specimen (Source) Anatomical Collection Method Collection Time Re ceived Time Location / / Volume Laterality Blood specimen 08/08/2020 11:43 (specimen) AM MCAT INSTRUCTOR Narrative [facility] - 08/11/2020 1:28 PM MCAT INSTRUCTOR Verified by Praufl Huff on 2019. Patient Reported LAB - BLOOD ORDERABLES Performing Organization Address City/State/ZIP Code Phon e Number [facility] LABDE SCAN Tacrolimus level (08/08/2020 11:34 AM MCAT INSTRUCTOR) P athologist Signature Tacrolimus(FK-5 11.7 See scan LABDE SCAN 06) (External) ng/mL Specimen (Source) Anatomical Collection Method Collection Time Re ceived Time Location / / Volume Laterality Blood specimen 08/08/2020 11:34 (specimen) AM MCAT INSTRUCTOR Narrative [facility] - 08/11/2020 1:28 PM MCAT INSTRUCTOR Verified by Praful Huff on 2019. Patient Reported LAB - BLOOD ORDERABLES Performing Organization Address City/State/ZIP Code Phon e Number [facility] LABDE SCAN (ABNORMAL) Lipid Profile (08/08/2020 11:34 AM MCAT INSTRUCTOR) Patholo gist Method Time Signature Cholesterol 79 (L) 90 - 200 LABDE SCAN (External) MG/DL Triglycerides 86 40 - 197 LABDE SCAN (External) MG/DL LDL-Cholesterol 29 <100 mg/dL LABDE SCAN (External) HDL Cholesterol 33 (L) >=40 mg/dL LABDE SCAN (External) Specimen (Source) Anatomical Collection Method Collection Time Re ceived Time Location / / Volume Laterality Blood specimen 08/08/2020 11:34 (specimen) AM MCAT INSTRUCTOR Narrative [facility] - 08/11/2020 1:28 PM MCAT INSTRUCTOR Verified by Praful Huff on 2019. Patient Reported LAB - BLOOD ORDERABLES Performing Organization Address City/State/ZIP Code Phon e Number [facility] LABDE SCAN ALT (08/08/2020 11:34 AM MCAT INSTRUCTOR) P athologist Signature ALT (External) 8 4 - 50 U/L LABDE SCAN Specimen (Source) Anatomical Collection Method Collection Time Re ceived Time Location / / Volume Laterality Blood specimen 08/08/2020 11:34 (specimen) AM MCAT INSTRUCTOR Narrative [facility] - 08/11/2020 1:28 PM MCAT INSTRUCTOR Verified by Praful Huff on 2019. Patient Reported LAB - BLOOD ORDERABLES Performing Organization Address City/State/ZIP Code Phon e Number [facility] LABDE SCAN (ABNORMAL) Basic metabolic panel (08/08/2020 11:34 AM MCAT INSTRUCTOR) P athologist Signature Glucose 119 (H) 60 [...] Laterality Blood specimen 08/08/2020 11:34 (specimen) AM MCAT INSTRUCTOR Narrative [facility] - 08/11/2020 1:28 PM MCAT INSTRUCTOR Verified by Praful Huff on 2019. Patient Reported LAB - BLOOD ORDERABLES Performing Organization Address City/State/ZIP Code Phon e Number [facility] LABDE SCAN documented in this encounter Visit Diagnoses Not on filedocumented in this encounter Care Teams Animal Surgeon Relationship Specialty Start Date End Date Momo Forbes PCP - General Family Practice 01/02/14 [facility] [address] [place] [address] Joseph Quintana, Assigned Nephrology 03/29/21 MD Provider 7 [facility] 353 [facility] [address] [place], [place] [address] documented as of this encounter
--- OUTSIDE RECORDS SUMMARY | 2022-07-29 12:55 | XMS_ITS | Encounter Summary ---
:1950 Author Organization [place] Address formerly [facility] [place] [address] Care Team Providers Name Role Phone Momo Forbes Primary Care Provider Joseph Quintana MD Unavailable Encounter Details Date Type Department Care Team Description 07/08/2020 External Order [facility] Outside, Provider Results Transplant Clinic [address] [place] [phone] Social History Tobacco Use Types Packs/Day [...] 9:23 AM Results f or this RESULTS ASSET PROTECTION ASSISTANT procedure are i n the results section. documented in this encounter Results External Lab Results (07/08/2020 9:23 AM ASSET PROTECTION ASSISTANT) Analysis Performed At Patho logist Time Signature Scan Lab View Image LABDE SCAN Results (External) Comment: HLA Antibody Screen, Class I an d Class II Specimen (Source) Anatomical Collection Method Collection Time Re ceived Time Location / / Volume Laterality 07/08/2020 9:23 AM ASSET PROTECTION ASSISTANT Narrative [facility] - 07/16/2020 2:42 PM ASSET PROTECTION ASSISTANT Verified by Ruperto Pepper on 07/15/20 20. Patient Reported LABORATORY Performing Organization Address City/State/ZIP Code Phon e Number [facility] LABDE SCAN documented in this encounter Visit Diagnoses Not on filedocumented in this encounter Care Teams Skein Straightener Relationship Specialty Start Date End Date Momo Forbes PCP - General Family Practice 01/02/14 [facility] [address] [place] [address] Joseph Quintana, Assigned Nephrology 03/29/21 MD Provider [address] [place] [address] [address] [place], [place] [id number] documented as of this encounter
--- OUTSIDE RECORDS SUMMARY | 2022-07-29 12:55 | XMS_ITS | Encounter Summary ---
:1950 Author Organization [place] Address [address] [place] [address] Care Team Providers Name Role Phone Forbes, Momo He Primary Care Provider Reason for Visit Reason Onset Date Comments Transplant Lab 05/28/2020 Encounter Details Date Type Department Care Team Description 05/28/2020 Telephone [facility] Barbie Ugalde nsplant Lab Transplant Clinic BOGDAN Nam [address] [place] [address] [phone] Social History Tobacco Use Types [...] mg/dL on 05/26/20 at 1025 collected at [facility] [phone] (Phone) CBC appears as expected Missing BMP [...] Family Practice 01/02/14 [facility] [address] [place] [address] documented as of this encounter
--- OUTSIDE RECORDS SUMMARY | 2022-07-29 12:55 | XMS_ITS | Encounter Summary ---
:1950 Author Organization [place] Address [address] [facility] [place] [address] Care Team Providers Name Role Phone Momo Forbes Primary Care Provider Reason for Visit Reason Onset Date Comments Refill Request 03/18/2020 Mycophenolate and Pr ograf 1mg Encounter Details Date Type Department Care Team Description 03/18/[address] [facility] Mariano, Joseph Refill R equest Nephrology Clinic MD Herminio (Mycophenolate and [place] [address] [place] [address] SE Prograf 1mg) [address] RANJAN [address] [facility] [address] [place], [place] [phone] Social History Tobacco Use Types Packs/Day Years [...] documented in this encounter Care Teams Special Agent Secret Service Relationship Specialty Start Date End Date Momo Forbes PCP - General Family Practice 01/02/14 [facility] [address] [place] [address] documented as of this encounter
--- OUTSIDE RECORDS SUMMARY | 2022-07-29 12:55 | XMS_ITS | Encounter Summary ---
:1950 Author Organization [place] Address [address] [place] [address] Care Team Providers Name Role Phone Momo Forbes Primary Care Provider Reason for Visit Reason Onset Date Comments Transplant Immunosuppression Management 07/03/2020 Late to refill Encounter Details Date Type Department Care Team Description 07/03/2020 Telephone [facility] Tram, Transplant Transplant Clinic Barbie Nam, Immunosuppression [address] [place] [address] RN Management (Late to [place], [place] refill) [phone] Social History Tobacco Use [...] Barbie Ugalde RN - 07/03/2020 10:20 AM THEATRE DIRECTOR Images from the original note were not [...] copy to patient so he is aware. 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
--- OUTSIDE RECORDS SUMMARY | 2022-07-29 12:55 | XMS_ITS | Encounter Summary ---
:1950 Author Organization [place] Address [address] [place] [address] Care Team Providers Name Role Phone ForbesMomo Primary Care Provider Reason for Visit Reason Onset Date Comments Transplant 07/11/2020 Encounter Details Date Type Department Care Team Description 07/11/2020 Telephone [facility] Barbie Ugalde Transplant Clinic BOGDAN Nam [address] [place], [place] [phone] Social History Tobacco Use Types Packs/Day Years Used Date Smoking Tobacco: Former Cigars Quit : 08/22/2006 Smokeless Tobacco: Never Alcohol Use Standard Drinks/Week Comments Yes 0 (1 standard drink = 0.6 oz pure alcoho l) occasional drink. Sex Assigned at Date Recorded Not on file documented as of this encounter Miscellaneous Notes Telephone Encounter - Barbie Ugalde RN - 07/11/2020 2:11 PM LIQUIFIED NATURAL GAS SPECIALIST ISSUE: Potassium 5.2 on 07/08/20. PLAN: Assess for high dietary intake of potassium. Encouraged Diego to reduce the amount of bananas and potatoes he admitted to eating high amounts of. OUTCOME: Please have pt repeat BMP in 1 week. Orders sent IFIED NATURAL GAS SPECIALIST Telephone Encounter - Barbie Ugalde RN - 07/11/2020 1:41 PM LIQUIFIED NATURAL GAS SPECIALIST ISSUE: Tacrolimus IR level 2.2 on 07/08/20 [...] for repeatlabs. Patient voiced understanding of plan. 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
--- OUTSIDE RECORDS SUMMARY | 2022-07-29 12:55 | XMS_ITS | Encounter Summary ---
:1950 Author Organization [place] Address [address] [place] [address] Care Team Providers Name Role Phone Forbes, Momo He Primary Care Provider Reason for Visit Reason Onset Date Comments Transplant Immunosuppression Management 09/08/2020 Encounter Details Date Type Department Care Team Description 09/08/2020 Telephone [facility] Tram, Transplant Transplant Clinic Barbie Nam, Rc [address] [place] [address] [place] [address] Social History Tobacco Use Types [...] Barbie Ugalde RN - 09/09/2020 3:06 PM DANCE COSTUME DESIGNER Second call placed to patient and voicemail message left. E COSTUME DESIGNER Telephone Encounter - Barbie Ugalde RN - 09/08/2020 10:31 AM DANCE COSTUME DESIGNER Images from the original note were not included. Message Received: 3 days ago Message Contents Beny Staton, [facility] Babrie Ugalde, BOGDAN ?? Latrell has not filled immunos since 07/21. ??His tacro dose changed and he has not filled the 0.5mg in over a year. ??He has not returned our calls. ?? Beny Staton [facility] Specialty Pharmacist [phone] OUTCOME: Tacrolimus dose was decreased from 2mg [...] he is currently taking and need labs. E COSTUME DESIGNER documented in this encounter Plan of Treatment Not on filedocumented as of this encounter Visit Diagnoses Not on filedocumented in this encounter Care Teams Lamp Developer Relationship Specialty Start Date End Date Momo Forbes PCP - General Family Practice 01/02/[address] [address] documented as of this encounter
--- OUTSIDE RECORDS SUMMARY | 2022-07-29 12:55 | XMS_ITS | Encounter Summary ---
:1950 Author Organization [place] Address [facility] [place] [address] Care Team Providers Name Role Phone Momo Forbes Primary Care Provider Reason for Visit Reason Onset Date Comments Refill Request 02/04/2020 prograf, mycophenola te Encounter Details Date Type Department Care Team Description 02/04/2020 Refill [facility] Spong, Joseph Refill R equest Transplant Clinic MD Herminio (prograf, [address] [facility] [address] [facility] mycophenolate) [facility] [address] [facility] [address] [phone] [place] [address] (Wo rk) Social History Tobacco [...] in this encounter Care Teams Customer Support Assistant Relationship Specialty Start Date End Date Momo Forbes PCP - General Family Practice 01/02/14 [facility] [address] [place] [address] documented as of this encounter
--- OUTSIDE RECORDS SUMMARY | 2022-07-29 12:55 | XMS_ITS | Encounter Summary ---
:1950 Author Organization [place] Address [address] [place] [address] Care Team Providers Name Role Phone Forbes, Ton Primary Care Provider Reason for Visit Reason Comments Clinic Care Coordination - Follow-up Encounter Details Date Type Department Care Team Description 10/25/2019 Care Coordination [facility] Sejal Rodriguez Nephrology Clinic BOGDAN Llanos Coordination - [place] [phone] Follow-up 9 [facility] (Work) [place] [address] Social History Tobacco Use [...] back (follow up BP). Romi Rodriguez RN ISH MAKER Romi Rodriguez RN - 10/25/2019 10:15 AM [...] further questions or concerns. Romi Rodriguez, RN ISH MAKER documented in this encounter Plan of Treatment Not on filedocumented as of this encounter Visit Diagnoses Not on filedocumented in this encounter Care Teams Inspector Circuitry Negative Relationship Specialty Start Date End Date Momo Forbes PCP - General Family Practice 01/02/14 [facility] [address] [place] [address] documented as of this encounter
--- OUTSIDE RECORDS SUMMARY | 2022-07-29 12:55 | XMS_ITS | Encounter Summary ---
:1950 Author Organization [place] Address [facility] [place] [address] Care Team Providers Name Role Phone Momo Forbes Primary Care Provider Encounter Details Date Type Department Care Team Description [facility] BOGDAN Nam [address] [place], [place] [phone] Social History Tobacco Use [...] Barbie Ugalde RN - 10/23/2020 4:27 PM CINDER CRUSHER OPERATOR Returned call and left second voicemail message. Patient mentioned in previous phone call he was interested in donating his body upon passing to [facility] for science. Please sent to following website for more information: [email or web address] ER CRUSHER OPERATOR Telephone Encounter - Gladis Sosa RN - 10/23/2020 3:21 PM CST Patient Call: Voicemail Date/Time: 10/23/20 139pm Reason for call: Patient left a message requesting a call back ER CRUSHER OPERATOR documented in this encounter Plan of Treatment Not on filedocumented as of this encounter Visit Diagnoses Not on filedocumented in this encounter Care Teams Dairy Technologist Relationship Specialty Start Date End Date Momo Forbes PCP - General Family Practice 01/02/14 [facility] [address] [place] [address] documented as of this encounter
--- OUTSIDE RECORDS SUMMARY | 2022-07-29 12:55 | XMS_ITS | Encounter Summary ---
:1950 Author Organization [place] Address [address] [facility] [place] [address] Care Team Providers Name Role Phone Momo Forbes Primary Care Provider Reason for Visit Reason Onset Date Comments Transplant Lab 01/29/2020 overdue labs Encounter Details Date Type Department Care Team Description 01/29/2020 Telephone [facility] Barbei Ugalde Tra nsplant Lab Transplant Clinic BOGDAN Nam (overdue labs) [address] [place] [phone] Social History Tobacco Use Types Packs/Day [...] a kit for blood work sent to [facility] as requested. Explained kits are no longer being used for drug levels but new orders could be sent to lab if needed. [facility] [phone] (Phone) [facility] has annual order on file sent September 2019 and can fax to their new [facility] location that opened 2 weeks ago. Patient seen provider in [facility] who meryl Hemoglobin A1C and BMP butnot [...] filedocumented in this encounter Care Teams Service Tech/Welder Relationship Specialty Start Date End Date Momo Forbes PCP - General Family Practice 01/02/14 [facility] [address] [place] [address] documented as of this encounter
--- OUTSIDE RECORDS SUMMARY | 2022-07-29 12:55 | XMS_ITS | Encounter Summary ---
:1950 Author Organization [place] Address [facility] [place] [address] Care Team Providers Name Role Phone Forbes, Ton Primary Care Provider Reason for Visit Reason Onset Date Comments Transplant Immunosuppression Management 08/11/2020 Encounter Details Date Type Department Care Team Description [facility] nsplant Transplant Clinic BOGDAN Nam Immunosuppression [address] [place] [address] [place] [address] Social History Tobacco Use Types [...] Barbie Ugalde RN - 08/11/2020 4:16 PM LEGISLATIVE DIRECTOR ISSUE: Tacrolimus IR level 11.7 on 08/08/20, [...] Organ Transplant, Post Kidney and Pancreas Transplant Account Coordinator [phone] OUTCOME: Spoke with patient, they confirm accurate trough level and current dose 2 mg BID. Patient confirmed dose change to 1.5 mg BID and to repeat labs in 1 weeks. Orders sent to preferred pharmacy for dose change and lab for repeat labs. Patient voiced understanding of plan. 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
--- OUTSIDE RECORDS SUMMARY | 2022-07-29 12:55 | XMS_ITS | Encounter Summary ---
:1950 Author Organization [place] Address [address] [facility] [place] [address] Care Team Providers Name Role Phone Momo Forbes Primary Care Provider Joseph Quintana MD Unavailable Encounter Details Date Type Department Care Team Description 07/08/2020 External Order [facility] Outside, Provider Results Transplant Clinic [address] [place] [address] Social History Tobacco Use Types [...] 9:23 AM R esults for this DIFFERENTIAL REDRAWER procedure are i n the results section. TACROLIMUS BY TANDEM Routine 07/08/2020 9:23 AM R esults for this MASS SPECTROMETRY REDRAWER procedure are in the results section. PROTEIN RANDOM URINE Routine 07/08/2020 9:23 AM R esults for this REDRAWER procedure are i n the results section. HEMOGLOBIN A1C Routine 07/08/2020 9:23 AM Results for this REDRAWER procedure are i n the results section. HEMOGLOBIN A1C Routine 07/08/2020 9:23 AM Results for this REDRAWER procedure are i n the results section. BASIC METABOLIC PANEL Routine 07/08/2020 9:23 AM Results for this REDRAWER procedure are i n the results section. documented in this encounter Results (ABNORMAL) Protein random urine with Creat Ratio (07/08/2020 9:23 AM REDRAWER) Analysis Performed At [facility] Time Signature Protein Random 73 mg/dL LABDE SCAN Urine (External) Creatinine 65 mg/dL LABDE SCAN Urine mg/dL (External) Protein Total 1.12 (H) 0 - 0.19 LABDE SCAN Ur per Cr (External) Specimen (Source) Anatomical Collection Method Collection Time Re ceived Time Location / / Volume Laterality Urine specimen 07/08/2020 9:23 AM (specimen) REDRAWER Narrative [facility] - 07/11/2020 11:13 AM REDRAWER Verified by Praful Huff on 2019. Patient Reported LAB - URINE ORDERABLES Performing Organization Address City/State/ZIP Code Phon e Number [facility] LABDE SCAN (ABNORMAL) Hemoglobin A1c (07/08/2020 9:23 AM REDRAWER) Analysis Performed At [facility] Time Signature Hemoglobin A1C 12.3 (H) 0 - 5.6 % LABDE SCAN (External) Specimen (Source) Anatomical Collection Method Collection Time Re ceived Time Location / / Volume Laterality Blood specimen 07/08/2020 9:23 AM (specimen) REDRAWER Narrative [facility] - 07/11/2020 11:13 AM REDRAWER Verified by Praful Huff on 2019. Patient Reported LAB - BLOOD ORDERABLES Performing Organization Address City/[facility]/ZIP Code Phon e Number [facility] LABDE SCAN Tacrolimus level (07/08/2020 9:23 AM REDRAWER) P athologist Signature Tacrolimus(FK- 2.2 See scanned LABDE SCAN 506) report ng/mL (External) Specimen (Source) Anatomical Collection Method Collection Time Re ceived Time Location / / Volume Laterality Blood specimen 07/08/2020 9:23 AM (specimen) REDRAWER Narrative [facility] - 07/11/2020 11:13 AM REDRAWER Verified by Praful Huff on 2019. Patient Reported LAB - BLOOD ORDERABLES Performing Organization Address City/State/ZIP Code Phon e Number [facility] LABDE SCAN (ABNORMAL) Hemoglobin A1c (07/08/2020 9:23 AM REDRAWER) Analysis Performed At [facility] logist Time Signature Hemoglobin A1C 12.3 (H) 0 - 5.6 % LABDE SCAN (External) Specimen (Source) Anatomical Collection Method Collection Time Re ceived Time Location / / Volume Laterality Blood specimen 07/08/2020 9:23 AM (specimen) REDRAWER Narrative MARLENEE PFT - 07/09/2020 11:03 AM REDRAWER Verified by Andrade Barajas on 07/09/2020. Patient Reported LAB - BLOOD ORDERABLES Performing Organization Address City/State/ZIP Code Phon e Number [facility] LABDE SCAN (ABNORMAL) Basic metabolic panel (07/08/2020 9:23 AM REDRAWER) Analysis Performed At [facility] logist Time Signature Calcium 10.1 [...] Laterality Blood specimen 07/08/2020 9:23 AM (specimen) REDRAWER Narrative JESSICA PFT - 07/09/2020 11:02 AM REDRAWER Verified by Andrade Barajas on 07/09/2020. Patient Reported LAB - BLOOD ORDERABLES Performing Organization Address City/State/ZIP Code Phon e Number [facility] LABDE SCAN (ABNORMAL) CBC with platelets differential (07/08/2020 9:23 AM REDRAWER) [facility] gist Method [...] Laterality Blood specimen 07/08/2020 9:23 AM (specimen) REDRAWER Narrative JESSICA PFT - 07/09/2020 10:52 AM REDRAWER Verified by Praful Huff on 2019. Patient Reported LAB - BLOOD ORDERABLES Performing Organization Address City/State/ZIP Code Phon e Number [facility] LABDE SCAN documented in this encounter Visit Diagnoses Not on filedocumented in this encounter Care Teams Supervisor Throwing Department Relationship Specialty Start Date End Date Momo Forbes PCP - General Family Practice 01/02/14 [place] [id number] Joseph Quintana, Assigned Nephrology 03/29/21 MD Provider [address] [place] [id number] documented as of this encounter
--- OUTSIDE RECORDS SUMMARY | 2022-07-29 12:55 | XMS_ITS | Encounter Summary ---
:1950 Author Organization [place] Address [facility] [place] [address] Care Team Providers Name Role Phone Momo Forbes Primary Care Provider Reason for Visit Reason Onset Date Comments Critical Values 07/08/2020 Encounter Details Date Type Department Care Team Description 07/08/2020 Telephone [facility] Cristy Chen LPN C ritical Values Transplant Clinic [address] [place] [address] [phone] Social History Tobacco Use Types Packs/Day Years Used Date Smoking Tobacco: Former Cigars Quit : 08/22/2006 Smokeless Tobacco: Never Alcohol Use Standard Drinks/Week Comments Yes 0 (1 standard drink = 0.6 oz pure alcoho l) occasional drink. Sex Assigned at Date Recorded Not on file documented as of this encounter Miscellaneous Notes Telephone Encounter - Barbie Ugalde RN - 07/08/2020 4:10 PM SUPERVISOR KENNEL Call placed to Latrell regarding the critical [...] the summer and that as a transplant case aide he was not prescribing his insulin. Per Dr. Huerta from visit in 10/09/19: # Diabetes: Poorly controlled (HbA1c >9%) Last HbA1c: 13.7%. - Management as per primary care. - Recommended all blood sugars stay below 200, with fasting between 90 and 130. ?? Latrell states that he lost his blood sugar meter but he can pick one up at [facility]. He asked how often he should [...] level. Latrell states he returns to 08/08. RVISOR KENNEL Telephone Encounter - Cristy Chen LPN - 07/08/2020 3:39 PM CST DATE: 07/08/2020 TIME OF RECEIPT FROM LAB: 3:30 PM LAB TEST: Glucose LAB VALUE: 407 RESULTS GIVEN WITH READ-BACK TO (PROVIDER): Barbie Ugalde RN TIME LAB VALUE REPORTED TO PROVIDER: 3:39 PM RVISOR KENNEL documented in this encounter Plan of Treatment Not on filedocumented as of this encounter Visit Diagnoses Not on filedocumented in this encounter Care Teams Speech Pathology Supervisor Relationship Specialty Start Date End Date Momo Forbes PCP - General Family Practice 01/02/14 [facility] [address] [place] [address] documented as of this encounter
--- OUTSIDE RECORDS SUMMARY | 2022-07-29 12:55 | XMS_ITS | Encounter Summary ---
:1950 Author Organization [place] Address [address] [place] [address] Care Team Providers Name Role Phone Forbes, Ton Primary Care Provider Reason for Visit Reason Comments Clinic Care Coordination - Follow-up Encounter Details Date Type Department Care Team Description 11/16/2019 Care Coordination [facility] Sejal Rodriguez Nephrology Clinic BOGDAN Llanos Coordination - [place] [phone] Follow-up 9 [facility] (Work) [place] [address] Social History Tobacco Use Types [...] filedocumented in this encounter Care Teams Pharmacy Informaticist Relationship Specialty Start Date End Date Momo Forbes PCP - General Family Practice 01/02/14 [facility] [address] [place] [address] documented as of this encounter
--- OUTSIDE RECORDS SUMMARY | 2022-07-29 12:55 | XMS_ITS | Encounter Summary ---
:1950 Author Organization [place] Address [address] [facility] [place] [address] Care Team Providers Name Role Phone Momo Forbes Primary Care Provider Joseph Quintana MD Unavailable Encounter Details Date Type Department Care Team Description 05/26/2020 External Order [facility] Outside, Provider Results Transplant Clinic [address] [place] [address] Social History Tobacco Use Types [...] filedocumented in this encounter Care Teams Foundry Engineer Relationship Specialty Start Date End Date Momo Forbes PCP - General Family Practice 01/02/14 [facility] [address] [place] [address] Joseph Quintana, Assigned Nephrology 03/29/21 MD Provider 7 [facility] [address] [facility] [address] [place], [place] [address] documented as of this encounter
--- OUTSIDE RECORDS SUMMARY | 2022-07-29 12:56 | XMS_ITS | Encounter Summary ---
:1950 Author Organization [place] Address [address] [place] [address]. [place] [address] Care Team Providers Name Role Phone Momo Forbes Primary Care Provider Reason for Visit Reason Onset Date Comments Refill Request 02/28/2019 Encounter Details Date Type Department Care Team Description 02/28/2019 Refill [facility] Shiva Presley MD Refill Request Nephrology Clinic [facility] [place] [address] [phone] Social History Tobacco Use Types Packs/Day Years [...] disease documented in this encounter Care Teams Coal Washer Relationship Specialty Start Date End Date Momo Forbes PCP - General Family Practice 01/02/14 [facility] [address] [place] [address] documented as of this encounter
--- OUTSIDE RECORDS SUMMARY | 2022-07-29 12:56 | XMS_ITS | Encounter Summary ---
:1950 Author Organization [place] Address Critical access hospital0 [facility] [place] [address] Care Team Providers Name Role Phone Momo [...] filedocumented in this encounter Care Teams Assembly Instructions Writer Relationship Specialty Start Date End Date Momo Forbes PCP - General Family Practice 01/02/14 [facility] [address] [place] [address] documented as of this encounter
--- OUTSIDE RECORDS SUMMARY | 2022-07-29 12:56 | XMS_ITS | Encounter Summary ---
:1950 Author Organization [place] Address [address] [place] [address] Care Team Providers Name Role Phone Momo Forbes Primary Care Provider Reason for Visit Reason Onset Date Comments Refill Request 12/19/2017 Encounter Details Date Type Department Care Team Description 12/19/2017 Refill [facility] Joseph Quintana MD Refill Request Transplant Clinic [address] [place] [address] [address] [place] [phone] [place] [address] (Wo rk) Social History Tobacco [...] Fill Date: 11/14/17 Quantity: 60 Janelle Flowers [facility] [phone] documented in this encounter Plan of Treatment Not on filedocumented as of this encounter Visit Diagnoses Diagnosis Kidney transplanted Kidney replaced by transplant documented in this encounter Care Teams Scaler Relationship Specialty Start Date End Date Momo Forbes PCP - General Family Practice 01/02/14 [facility] [address] [place] [address] documented as of this encounter
--- OUTSIDE RECORDS SUMMARY | 2022-07-29 12:56 | XMS_ITS | Encounter Summary ---
:1950 Author Organization [place] Address [address] [place] [address] Care Team Providers Name Role Phone Momo Forbes Primary Care Provider Reason for Visit Reason Comments RECHECK annual Follow up Kidney [place] Encounter Details Date Type Department Care Team Description 10/17/2018 Office Visit [facility] Shiva Presley MD [facility] [address] [facility] [address] [place], [place] [address] Type 2 diabetes mellitus with other spec ified complication, with long-term current use of insulin (H) (Primary Dx); Nephrology Clinic [facility] Kidney/Pancreas Recipient Kidney replaced by transplant; [place] Aftercare following organ tr ansplant; [address] [facility] Immunosupp ression (H); SE HTN, kidney transplant relat ed; [place], [place] Severe obesi ty in adult, BMI [...] Comments Blood Pressure 162/77 10/17/2018 1:54 PM TRANSITIONAL CARE NURSE Pulse 60 10/17/2018 1:54 PM TRANSITIONAL CARE NURSE Temperature 36.5 ??C (97.7 ??F) 10/17/2018 1:54 PM TRANSITIONAL CARE NURSE Respiratory Rate - - Oxygen Saturation 94% 10/17/2018 1:54 PM TRANSITIONAL CARE NURSE Inhaled Oxygen Concentration - - Weight 133.7 kg (294 lb 12.8 oz) 10/17/2018 1:54 PM TRANSITIONAL CARE NURSE Height - - Body Mass Index 39.98 10/10/2017 2:25 PM TRANSITIONAL CARE NURSE documented in this encounter Progress Notes Joseph [...] then 50%0. Also offered to refer to double surface operator. # Mineral Bone Disorder: - Secondary [...] PREVIOUSLY REPORTED 1999 MPACID 1.39 MPAG 80.2 SITIONAL CARE NURSE documented in this encounter Nursing Notes Martina [...] kg (294 lb 12.8 oz). Martina Boyle SITIONAL CARE NURSE documented in this encounter Plan of [...] >40 documented in this encounter Care Teams Cinder Crusher Operator Relationship Specialty Start Date End Date Momo Forbes PCP - General Family Practice 01/02/14 [facility] [address] [place] [address] documented as of this encounter
--- OUTSIDE RECORDS SUMMARY | 2022-07-29 12:56 | XMS_ITS | Encounter Summary ---
:1950 Author Organization [place] Address [address] [place] [address] Care Team Providers Name Role Phone Forbes, Ton Primary Care Provider Reason for Visit Reason Onset Date Comments Refill Request 10/25/2018 Encounter Details Date Type Department Care Team Description 10/25/2018 Refill [facility] Joseph Quintana MD Refill Request Transplant Clinic [address] [place] [address] [address] [place], [place] [phone] [place] [address] (Wo rk) Social History Tobacco [...] Marianne Urias RN - 10/26/2018 9:04 AM SOLID GLASS ROD DOWEL MACHINE OPERATOR ISSUE: Refill request for MM[facility] 03/2019 [...] to call if further questions or concerns. 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
--- OUTSIDE RECORDS SUMMARY | 2022-07-29 12:56 | XMS_ITS | Encounter Summary ---
:1950 Author Organization [place] Address [facility] [place] [address] Care Team Providers Name Role Phone Momo Forbes Primary Care Provider Encounter Details Date Type Department Care Team Description 10/09/2019 Orders Only [facility] Transplant Mati Recinos RN Clinic [address] [place], [place] [phone] Social History Tobacco Use Types Packs/Day [...] 3:48 PM CST Orders updated. Faxed to [facility] lab: [facility] T [phone] F [phone] VITIES LEADER documented in this encounter Plan of Treatment Not on filedocumented as of this encounter Visit Diagnoses Not on filedocumented in this encounter Care Teams Java Oracle Developer Relationship Specialty Start Date End Date Momo Forbes PCP - General Family Practice 01/02/14 [facility] [address] [place] [address] documented as of this encounter
--- OUTSIDE RECORDS SUMMARY | 2022-07-29 12:56 | XMS_ITS | Encounter Summary ---
:1950 Author Organization [place] Address [address] [place] [address] Care Team Providers Name Role Phone Momo Forbes Primary Care Provider Encounter Details Date Type Department Care Team Description 05/16/[address] [facility] Loy Morales, Aft ercare following organ transplant; [facility] Kidney replaced by transplant; Laboratory [address] [facility] Encounter for long-term curr ent use of medication [address] [place] [phone] (Wo rk) Social History Tobacco Use Types [...] (ABNORMAL) Tacrolimus level (05/16/2019 3:43 PM CDT) [facility] Method Time Signature Tacrolimus Last 05/1605/18/2019 [facility] 1230AM 11:28 AM CDT [facility] Tacrolimus 4.6 (L) 5.0 - 05/18/2019 [facility] 15.0 ug/L 4:11 PM CDT [facility] Comment: Tacrolimus Reference Range Kidney Transplant [...] its performa nce characteristics determined by the [facility], [...] [facility] [address] [place], [place] [id number] [place] [address] documented in this encounter Visit Diagnoses Diagnosis Aftercare following organ transplant Kidney replaced by transplant Encounter for long-term current use of m edication documented in this encounter Care Teams Turn Laster Relationship Specialty Start Date End Date Momo Forbes PCP - General Family Practice 01/02/14 [facility] [address] [place] [address] documented as of this encounter
--- OUTSIDE RECORDS SUMMARY | 2022-07-29 12:56 | XMS_ITS | Encounter Summary ---
:1950 Author Organization [place] Address [address] [place] [address]. [place] [address] Care Team Providers Name Role Phone Momo Forbes Primary Care Provider Encounter Details Date Type Department Care Team Description 09/26/2019 [facility] Scan, BLOOD GLUCOSE LOG Health Info Mgmt Non-Provider Srvcs [address] [place] [phone] Social History Tobacco Use Types Packs/Day [...] filedocumented in this encounter Care Teams Automatic Machines Supervisor Relationship Specialty Start Date End Date Momo Forbes PCP - General Family Practice 01/02/14 [facility] [address] [place] [address] documented as of this encounter
--- OUTSIDE RECORDS SUMMARY | 2022-07-29 12:56 | XMS_ITS | Encounter Summary ---
:1950 Author Organization [place] Address [address] [facility] [place] [address] Care Team Providers Name Role Phone ForbesMomo santiago A Primary Care Provider Reason for Visit Reason Onset Date Comments Kidney Transplant 07/12/2019 Encounter Details Date Type Department Care Team Description 07/12/2019 Telephone [facility] Estefania Nguyen Transplant Transplant Clinic Amanda Fletcher RN [address] [place] [phone] Social History Tobacco Use Types Packs/Day [...] left with instruction listed below. Order placed ATIONS DEVELOPER Telephone Encounter - Amanda Nguyen RN - 07/12/2019 12:23 PM OPERATIONS DEVELOPER Clinic appt 07/17 at 4:45 Plan: Called patient to remind him of appt date/time. Asked that he complete labs prior to appt. SREEKANTH task: Please send one time lab order to complete all tx labs within the next week. ATIONS DEVELOPER documented in this encounter Plan of Treatment Not on filedocumented as of this encounter Visit Diagnoses Not on filedocumented in this encounter Care Teams Business Operations Manager Relationship Specialty Start Date End Date Momo Forbes PCP - General Family Practice 01/02/14 [facility] [address] [place] [address] documented as of this encounter
--- OUTSIDE RECORDS SUMMARY | 2022-07-29 12:56 | XMS_ITS | Encounter Summary ---
:1950 Author Organization [place] Address [facility] [place] [address] Care Team Providers Name Role Phone Momo Forbes Primary Care Provider Reason for Visit Reason Onset Date Comments Erroneous encounter-disregard 05/17/2018 Encounter Details Date Type Department Care Team Description 05/17/2018 Telephone [facility] [place], Erroneous Transplant Clinic BOGDAN Lopes encounter-disregard [address] [place] [phone] Social History Tobacco Use Types Packs/Day [...] on filedocumented in this encounter Care Teams Spindle Repairer Relationship Specialty Start Date End Date Momo Forbes PCP - General Family Practice 01/02/14 [facility] [address] [place] [address] documented as of this encounter
--- OUTSIDE RECORDS SUMMARY | 2022-07-29 12:56 | XMS_ITS | Encounter Summary ---
:1950 Author Organization [place] Address [address] [place] [address] Care Team Providers Name Role Phone ForbesMoom Primary Care Provider Reason for Visit Reason Onset Date Comments Transplant 11/07/2017 Encounter Details Date Type Department Care Team Description 11/07/2017 Telephone [facility] Transplant Nazia Jacobson, Transplant Clinic RN [address] [place], [place] [phone] Social History Tobacco Use [...] range, repeat tac level in 1 week. DENTAL EQUIPMENT INSTALLER AND SERVICER TASK: Call patient with instructions per plan. Enter lab orders if needed. documented in this encounter Plan of Treatment Not on filedocumented as of this encounter Visit Diagnoses Not on filedocumented in this encounter Care Teams Central Sterile Supply Technician Relationship Specialty Start Date End Date Momo Forbes PCP - General Family Practice 01/02/[address] [address] documented as of this encounter
--- OUTSIDE RECORDS SUMMARY | 2022-07-29 12:56 | XMS_ITS | Encounter Summary ---
:1950 Author Organization [place] Address [facility] [place] [address] Care Team Providers Name Role [...] on filedocumented in this encounter Care Teams Joy Loader Relationship Specialty Start Date End Date Momo Forbes PCP - General Family Practice 01/02/14 [facility] [address] [place] [address] documented as of this encounter
--- OUTSIDE RECORDS SUMMARY | 2022-07-29 12:56 | XMS_ITS | Encounter Summary ---
:1950 Author Organization [place] Address [address] [facility] [place] [address] Care Team Providers Name Role Phone Momo Forbes Primary Care Provider Reason for Visit Reason Onset Date Comments Transplant Pharmacy Medication Review 01/10/2019 Encounter Details Date Type Department Care Team Description 01/10/2019 Telephone [facility] Meghan Mccormack [facility] [address] [facility] [employer] [place] [address] PHARMACY [phone] [place] [address] (Wo rk) Social History Tobacco Use Types [...] on filedocumented in this encounter Care Teams Piece Dyeing Machine Tender Relationship Specialty Start Date End Date Momo Forbes PCP - General Family Practice 01/02/14 [facility] [address] [place] [address] documented as of this encounter
--- OUTSIDE RECORDS SUMMARY | 2022-07-29 12:56 | XMS_ITS | Encounter Summary ---
:1950 Author Organization [place] Address [facility] [place] [address] Care Team Providers Name Role Phone Momo [...] filedocumented in this encounter Care Teams Plant Operator Control Room Operator Relationship Specialty Start Date End Date Momo Forbes PCP - General Family Practice 01/02/14 [facility] [address] [place] [address] documented as of this encounter
--- OUTSIDE RECORDS SUMMARY | 2022-07-29 12:56 | XMS_ITS | Encounter Summary ---
:1950 Author Organization [place] Address Count includes the [facility] [place] [address] Care Team Providers Name Role Phone Momo Forbes Primary Care Provider Reason for Visit Reason Onset Date Comments Refill Request 01/17/2019 Encounter Details Date Type Department Care Team Description 01/17/2019 Refill [facility] Joseph Quintana MD Refill Request Transplant Clinic [address] [place] [address] [address] [place], [place] [phone] [place], [place] [phone] (Wo rk) Social History Tobacco Use Types [...] transplant documented in this encounter Care Teams Vinyl Top Installer Relationship Specialty Start Date End Date Momo Forbes PCP - General Family Practice 01/02/14 [facility] [address] [place] [address] documented as of this encounter
--- OUTSIDE RECORDS SUMMARY | 2022-07-29 12:56 | XMS_ITS | Encounter Summary ---
:1950 Author Organization [place] Address [address] [place] [address] Care Team Providers Name Role Phone Momo Forbes Primary Care Provider Encounter Details Date Type Department Care Team Description 11/03/2017 Orders Only [facility] Loy Morales, Rachid olivia replaced by [facility] MD transplant Laboratory [address] [facility] 500 [facility] 609 [place] [phone] (Wo rk) Social History Tobacco Use Types [...] Results Tacrolimus level (11/03/2017 11:30 AM CDT) [facility] Method Time Signature Tacrolimus Not Provided 11/05/2017 [facility] Last Dose 2:[address] [facility] Tacrolimus 10.7 5.0 - 11/06/2017 [facility] Level 15.0 ug/L 1:[address] [facility] Comment: Tacrolimus Reference Range Kidney Transplant Pediatric [...] Phon e Number [facility] [address] [place], [place] [id number] [place] [address] documented in this encounter Visit Diagnoses Diagnosis Kidney replaced by transplant documented in this encounter Care Teams Ship Propeller Finisher Relationship Specialty Start Date End Date Momo Forbes PCP - General Family Practice 01/02/14 [facility] [address] [place] [address] documented as of this encounter
--- OUTSIDE RECORDS SUMMARY | 2022-07-29 12:56 | XMS_ITS | Encounter Summary ---
:1950 Author Organization [place] Address [facility] [place] [address] Care Team Providers Name Role Phone Momo Forbes Primary Care Provider Reason for Visit Reason Onset Date Comments Transplant Pharmacy Medication Review 01/19/2018 Encounter Details Date Type Department Care Team Description 01/19/2018 Telephone [facility] Beny Staton, Transplant Pharmacy 500 [facility] [place] [address] [facility] [phone] PHARMACY [place], [place] [address] Social History Tobacco Use Types Packs/Day Years [...] filedocumented in this encounter Care Teams Electric Relay Tester Relationship Specialty Start Date End Date Momo Forbes PCP - General Family Practice 01/02/14 [facility] [address] [place] [address] documented as of this encounter
--- OUTSIDE RECORDS SUMMARY | 2022-07-29 12:56 | XMS_ITS | Encounter Summary ---
:1950 Author Organization [place] Address [address] [place] [address] Care Team Providers Name Role Phone Momo Forbes Primary Care Provider Reason for Visit Reason Comments RECHECK Post kid tx f/u Encounter Details Date Type Department Care Team Description 10/09/2019 Office Visit [facility] Shiva Presley MD [facility] [address] [facility] 220 [place] [address] Kidney transplanted (Primary Dx); Nephrology Clinic , Kidney/Pancreas Recipient Need for influenza vaccination; [place] HTN, kidney transplant relat ed; [address] Immunosupp ression (H); SE Skin cancer screening; [place], [place] Hypovitamino sis D [address] Social History [...] Comments Blood Pressure 169/76 10/09/2019 2:35 PM STATIONARY ENGINEER SUPERVISOR Pulse 67 10/09/2019 2:35 PM STATIONARY ENGINEER SUPERVISOR Temperature - - Respiratory Rate - - Oxygen Saturation 95% 10/09/2019 2:35 PM STATIONARY ENGINEER SUPERVISOR Inhaled Oxygen Concentration - - Weight 132.5 kg (292 lb 1.6 oz) 10/09/2019 2:35 PM STATIONARY ENGINEER SUPERVISOR Height - - Body Mass Index 39.62 10/10/2017 2:25 PM STATIONARY ENGINEER SUPERVISOR documented in this encounter Progress Notes Shiva [...] being entered into the official medical record. IONARY ENGINEER SUPERVISOR documented in this encounter Nursing Notes Josseline Recinos RN - 10/09/2019 2:45 PM CST Diego Guthrie was seen today in clinic by this assembly instructions writer. Medications, lab orders, lab frequency,and necessary follow up discussed with patient. Patient was provided with a copy of the current lab letter. Patient voiced understanding and agreement of education and plan. Josseline Recinos RN IONARY ENGINEER SUPERVISOR Jeanette Finley CMA - 10/09/2019 2:45 PM CST Chief Complaint Patient presents with ??? RECHECK Post kid tx f/u Blood pressure (!) 169/76, pulse 67, weight 132.5 kg (292 lb 1.6 oz), SpO2 95 %. Jeanette Finley CMA IONARY ENGINEER SUPERVISOR documented in this encounter Plan of [...] deficiency documented in this encounter Care Teams Terminal Superintendent Relationship Specialty Start Date End Date Momo Forbes PCP - General Family Practice 01/02/14 [facility] [address] [place] [address] documented as of this encounter
--- OUTSIDE RECORDS SUMMARY | 2022-07-29 12:56 | XMS_ITS | Encounter Summary ---
:1950 Author Organization [place] Address [address] [place] [address] Care Team Providers Name Role Phone Momo Forbes Primary Care Provider Reason for Visit Reason Onset Date Comments Kidney Transplant 05/20/2019 Encounter Details Date Type Department Care Team Description 05/20/2019 Telephone [facility] Estefania Nguyen Transplant Transplant Clinic Amanda Fletcher RN [address] [place] [phone] Social History Tobacco Use Types Packs/Day [...] not charted as 12 hour trough. ?? Plan/CHISEL WORKER task: ?? Please confirm timing of lab draw. If this was not a 12 hour level, please repeat labs in May and ensure 12 hour trough level with lab draw. Enter lab orders if needed Telephone Encounter - Amanda Nguyen RN - 05/20/2019 5:38 PM CDT Issue: Tac 4.6 - however this is not charted as 12 hour trough. Plan/CHISEL WORKER task: Please confirm timing of lab draw. If this was not a 12 hour level, please repeat labs in May and ensure 12 hour trough level with lab draw. Enter lab orders if needed. documented in this encounter Plan of Treatment Not on filedocumented as of this encounter Visit Diagnoses Not on filedocumented in this encounter Care Teams Boat Garnisher Relationship Specialty Start Date End Date Momo Forbes PCP - General Family Practice 01/02/14 [facility] [address] [place] [address] documented as of this encounter
--- OUTSIDE RECORDS SUMMARY | 2022-07-29 12:56 | XMS_ITS | Encounter Summary ---
:1950 Author Organization [place] Address [address] [place] [address]. [place] [address] Care Team Providers Name Role Phone Momo Forbes Primary Care Provider Encounter Details Date Type Department Care Team Description 09/25/2019 Medical Correspondence [facility] Scan, PATIENT BLOOD Health Info Mgmt Non-Provider GLUCOSE SIVAKUMAR LEMUS [facility] [address] [place] [address] Social History Tobacco Use Types [...] filedocumented in this encounter Care Teams Marine Engine Driver Relationship Specialty Start Date End Date Momo Forbes PCP - General Family Practice 01/02/14 [facility] [address] [place] [address] documented as of this encounter
--- OUTSIDE RECORDS SUMMARY | 2022-07-29 12:56 | XMS_ITS | Encounter Summary ---
:1950 Author Organization [place] Address [address] [place] [address] Care Team Providers Name Role Phone Momo Forbes Primary Care Provider Encounter Details Date Type Department Care Team Description 05/15/2018 Orders Only [facility] Loy Morales MD [facility]ato 420 [facility] 609 500 [place], [place] [address] [place] [phone] Social History Tobacco Use Types Packs/Day Years [...] (ABNORMAL) Tacrolimus level (05/15/2018 2:13 PM CDT) [facility] Method Time Signature Tacrolimus Not Provided 05/18/2018 [facility] Last Dose 7:24 AM CDT [facility] Tacrolimus 3.4 (L) 5.0 - 05/18/2018 [facility] Level 15.0 ug/L 7:24 AM CDT [facility] Comment: Tacrolimus Reference Range [...] performa nce characteristics determined by the [facility], ??Special Chemistry Laboratory. It has [...] PM 8 9:59 CDT AM CDT Orlando Ricehy MD LAB - BLOOD ORDERABLES Performing Organization Address City/State/[facility] Phon e Number [address] Cyclosporine (05/15/2018 2:13 PM CDT) Component Value Ref Test Analysis Performed At [facility] gist Range Method Time Signature Cyclosporine CANCELLED BY 05/17/2018 [facility] Last Dose BOGDAN KOLB 1:00 PM CDT [facility] 05/17/18 AT C[facility] 1300 BY [place] Comment: CORRECTED ON 05/17 AT 1300: PRE VIOUSLY REPORTED [id number] Cyclosporine Level CANCELLED BY RN 50 - 400 05/17/2018 1:00 [facility] [place] ug/L PM CDT [facility] 05/17/18 AT 1300 BY [place] Comment: CORRECTED ON 05/17 AT 1300: PRE VIOUSLY REPORTED <25 Specimen Anatomical Collection Method Collection Time Receive d Time (Source) Location / / Volume Laterality 05/15/2018 2:13 PM 8 9:59 CDT AM CDT Orlando Richey MD LAB - BLOOD ORDERABLES Performing Organization Address City/[facility] Phon e Number [address] documented in this encounter Visit Diagnoses Not on filedocumented in this encounter Care Teams Horse Exerciser Relationship Specialty Start Date End Date Momo Forbes PCP - General Family Practice 01/02/14 [facility] [address] [place] [address] documented as of this encounter
--- OUTSIDE RECORDS SUMMARY | 2022-07-29 12:56 | XMS_ITS | Encounter Summary ---
:1950 Author Organization [place] Address [facility] [place] [address] Care Team Providers Name Role Phone Momo [...] filedocumented in this encounter Care Teams Management Intern Relationship Specialty Start Date End Date Momo Forbes PCP - General Family Practice 01/02/14 [facility] [address] [place] [address] documented as of this encounter
--- OUTSIDE RECORDS SUMMARY | 2022-07-29 12:56 | XMS_ITS | Encounter Summary ---
:1950 Author Organization [place] Address [address] [place] [address] Care Team Providers Name Role Phone Momo Forbes Primary Care Provider Joseph Quintana MD Unavailable Encounter Details Date Type Department Care Team Description 05/16/2019 External Order [facility] Nurse, Santi Txc Afterca re following organ transplant; Results Transplant Clinic Kidney replaced by transplan t; [address] [place] [address] Encounter for long-term cur[place] [address] Social History Tobacco Use Types [...] procedure are in Kidney replaced by the [facility] ts transplant section. Encounter for long-term current use of medication PROTEIN RANDOM URINE Routine 05/16/2019 3:36 PM Aftercare foll owing Results for this CDT organ transplant procedure are in Kidney replaced by the [facility] ts transplant section. Encounter [...] Estimated >60 >60 LABDE SCAN (if ml/min/1.7 Senegalese) 3m2 (External) GFR Estimated 56 (L) >60 [...] edication documented in this encounter Care Teams Tuckpointer Cleaner Caulker Relationship Specialty Start Date End Date Momo Forbes PCP - General Family Practice 01/02/14 [facility] [address] [place] [address] Joseph Quintana, Assigned Nephrology 03/29/21 MD Provider 7 [facility] 353 [facility] [address] [place] [address] documented as of this encounter
--- OUTSIDE RECORDS SUMMARY | 2022-07-29 12:56 | XMS_ITS | Encounter Summary ---
:1950 Author Organization [place] Address [facility] [place] [address] Care Team Providers Name Role Phone Momo Forbes Primary Care Provider Encounter Details Date Type Department Care Team Description 05/17/2018 Orders Only [facility] Alana Calderon Afterc are following Transplant door hanger organ transplant [address] [place] [address] (Primary Dx) [place] [address] Social History Tobacco Use Types [...] rimary documented in this encounter Care Teams Medical Imaging Tech Relationship Specialty Start Date End Date Momo Forbes PCP - General Family Practice 01/02/14 [facility] [address] [place] [address] documented as of this encounter
--- OUTSIDE RECORDS SUMMARY | 2022-07-29 12:56 | XMS_ITS | Encounter Summary ---
:1950 Author Organization [place] Address [address] [place] [address] Care Team Providers Name Role Phone Momo Forbes Primary Care Provider Joseph Quintana MD Unavailable Encounter Details Date Type Department Care Team Description 05/15/2018 External Order Results [facility] Nurse, [facility] Transplant Clinic 9 [place] [address] Social History Tobacco Use Types [...] 54 (L) >60 LABDE SCAN (if ml/min/1.7 Finnish) 3m2 (External) GFR Estimated 44 (L) >60 [...] on filedocumented in this encounter Care Teams Preschool Teacher Relationship Specialty Start Date End Date Momo Forbes PCP - General Family Practice 01/02/14 [facility] [address] [place] [address] Joseph Quintana, Assigned Nephrology 03/29/21 MD Provider 7[address] [facility] 353 [facility] [address] [place] [address] documented as of this encounter
--- OUTSIDE RECORDS SUMMARY | 2022-07-29 12:56 | XMS_ITS | Encounter Summary ---
:1950 Author Organization [place] Address [address] [place] [address] Care Team Providers Name Role Phone Momo Forbes Primary Care Provider Joseph Quintana MD Unavailable Encounter Details Date Type Department Care Team Description 09/04/2018 External Order Results [facility] Nurse, [facility] Transplant Clinic [address] [place] [address] Social History Tobacco Use Types [...] 2:50 PM R esults for this DIFFERENTIAL CROSSBAR SWITCH ADJUSTER procedure are i n the results section. BASIC METABOLIC PANEL Routine 09/04/2018 2:50 PM Results for this CROSSBAR SWITCH ADJUSTER procedure are i n the results section. PROTEIN RANDOM URINE Routine 09/04/2018 2:49 PM R esults for this CROSSBAR SWITCH ADJUSTER procedure are i n the results section. documented in this encounter Results (ABNORMAL) CBC with platelets differential (09/04/2018 2:50 PM CROSSBAR SWITCH ADJUSTER) [facility] Method Time Signature WBC Count 3.8 [...] Laterality Blood specimen 09/04/2018 2:50 PM (specimen) CROSSBAR SWITCH ADJUSTER Narrative JESSICA PFT - 09/06/2018 9:13 AM CROSSBAR SWITCH ADJUSTER Verified by Cassie Florian on 09/06/2018. Patient Reported LAB - BLOOD ORDERABLES Performing Organization Address City/State/ZIP Code Phon e Number ZACHERYTYLER PFT LABDE SCAN (ABNORMAL) Basic metabolic panel (09/04/2018 2:50 PM CROSSBAR SWITCH ADJUSTER) Analysis Performed At Patho logist Time Signature [...] 49 (L) >60 LABDE SCAN (if ml/min/1.7 Jordanian) 3m2 (External) GFR Estimated 41 (L) >60 LABDE SCAN (External) ml/min/1.7 3m2 Specimen (Source) Anatomical Collection Method Collection Time Re ceived Time Location / / Volume Laterality Blood specimen 09/04/2018 2:50 PM (specimen) CROSSBAR SWITCH ADJUSTER Narrative [facility] PFT - 09/06/2018 9:13 AM CROSSBAR SWITCH ADJUSTER Verified by Cassie Florian on 09/06/2018. Patient Reported LAB - BLOOD ORDERABLES Performing Organization Address City/State/ZIP Code Phon e Number [facility] LABDE SCAN (ABNORMAL) Protein random urine with Creat Ratio (09/04/2018 2:49 PM CROSSBAR SWITCH ADJUSTER) P athologist Signature Protein Random 72 (H) 1 - 14 LABDE SCAN Urine mg/dL (External) Creatinine 104.0 63.0 - LABDE SCAN Urine mg/dL 166.0 (External) mg/dL Protein Total 0.7 (H) <0.2 LABDE SCAN Ur per Cr (External) Specimen (Source) Anatomical Collection Method Collection Time Re ceived Time Location / / Volume Laterality Urine specimen 09/04/2018 2:49 PM (specimen) CROSSBAR SWITCH ADJUSTER Narrative [facility] - 09/06/2018 9:13 AM CROSSBAR SWITCH ADJUSTER Verified by Cassie Florian on 09/06/2018. Patient Reported LAB - URINE ORDERABLES Performing Organization Address City/State/ZIP Code Phon e Number [facility] LABDE SCAN documented in this encounter Visit Diagnoses Not on filedocumented in this encounter Care Teams Telemarketing Representative Relationship Specialty Start Date End Date Momo Forbes PCP - General Family Practice 01/02/14 [facility] [address] [place] [address] Joseph Quintana, Assigned Nephrology 03/29/21 MD Provider [address] [place] [address] [address] [place] [address] documented as of this encounter
--- OUTSIDE RECORDS SUMMARY | 2022-07-29 12:56 | XMS_ITS | Encounter Summary ---
:1950 Author Organization [place] Address [address] [place] [address] Care Team Providers Name Role Phone ForbesMomo Primary Care Provider Reason for Visit Reason Onset Date Comments Appointment 08/24/2018 Encounter Details Date Type Department Care Team Description 08/24/2018 Telephone [facility] Nephrology Romi Garcia RN Appointment [facility] [phone] ([facility]) [address] [place] [address] [phone] Social History Tobacco Use Types Packs/Day [...] patient to call back. Romi Rodriguez RN INSPECTOR Telephone Encounter - Romi Rodriguez RN - 08/24/2018 1:54 PM CST Left voicemail for patient to call back (follow up from last transplant appointment). Romi Rodriguez RN INSPECTOR documented in this encounter Plan of Treatment Not on filedocumented as of this encounter Visit Diagnoses Not on filedocumented in this encounter Care Teams Program Writer Relationship Specialty Start Date End Date Momo Forbes PCP - General Family Practice 01/02/14 [facility] [address] [place] [address] documented as of this encounter
--- OUTSIDE RECORDS SUMMARY | 2022-07-29 12:56 | XMS_ITS | Encounter Summary ---
:1950 Author Organization [place] Address [address] [place] [address] Care Team Providers Name Role Phone Momo Forbes Primary Care Provider Reason for Visit Reason Onset Date Comments Transplant 10/18/2018 post transplant sche duling Encounter Details Date Type Department Care Team Description 10/18/2018 Telephone [facility] Nazia Jacobson Transplant (post Transplant Clinic BOGDAN Hicksmuseum or zoo director scheduling) [address] [place] [phone] Social History Tobacco Use Types Packs/Day [...] another detailed message with weight managements number. STANCE COORDINATOR Telephone Encounter - Maribel Plunkett - 10/18/2018 9:32 AM CST I attempted to contact pt to give him the number for weight management, as they want to talk directly to the patient when scheduling initial appointment, and reached his VM. I LVM asking him to return my call. STANCE COORDINATOR documented in this encounter Plan of Treatment Not on filedocumented as of this encounter Visit Diagnoses Not on filedocumented in this encounter Care Teams Tyre Retreader Relationship Specialty Start Date End Date Momo Forbes PCP - General Family Practice 01/02/14 [facility] [address] [place] [address] documented as of this encounter
--- OUTSIDE RECORDS SUMMARY | 2022-07-29 12:56 | XMS_ITS | Encounter Summary ---
:1950 Author Organization [place] Address [address] [place] [address] Care Team Providers Name Role Phone Momo Forbes Primary Care Provider Reason for Visit Reason Onset Date Comments Transplant Lab 09/06/2018 Encounter Details Date Type Department Care Team Description 09/06/2018 Telephone [facility] Transplant Adonay, Transplant Lab Clinic BOGDAN Lopes [address] [place] [address] [phone] Social History Tobacco Use Types Packs/Day Years Used Date Smoking Tobacco: Former Cigars Quit : 08/22/2006 Smokeless Tobacco: Never Alcohol Use Standard Drinks/Week Comments Yes 0 (1 standard drink = 0.6 oz pure alcoho l) occasional drink. Sex Assigned at Date Recorded Not on file documented as of this encounter Miscellaneous Notes Telephone Encounter - Marianne Urias RN - 09/12/2018 11:58 AM COLD WORK OPERATOR Attempted to reach pt again regarding his labs, no answer. Left message for pt to return call. WORK OPERATOR Telephone Encounter - Marianne Urias RN - 09/07/2018 1:30 PM COLD WORK OPERATOR Attempted to reach pt again regarding labs, no answer. Left message for pt to return call. WORK OPERATOR Telephone Encounter - Marianne Urias RN - 09/06/2018 12:59 PM COLD WORK OPERATOR ISSUE: Creatinine 1.69, up from pt baseline [...] Left message for pt to return call. WORK OPERATOR documented in this encounter Plan of Treatment Not on filedocumented as of this encounter Visit Diagnoses Not on filedocumented in this encounter Care Teams Proof Coins Inspector Relationship Specialty Start Date End Date Momo Forbes PCP - General Family Practice 01/02/14 [facility] [address] [place] [address] documented as of this encounter
--- OUTSIDE RECORDS SUMMARY | 2022-07-29 12:56 | XMS_ITS | Encounter Summary ---
:1950 Author Organization [place] Address [facility] [place] [address] Care Team Providers Name Role Phone Momo Forbes Primary Care Provider Encounter Details Date Type Department Care Team Description 08/18/2018 Documentation Only [facility] Josseline Recinos, Transplant Clinic RN [address] [place] [address] Social History Tobacco Use Types [...] letter updated: 08/17/18 Lab orders faxed to: [facility] [phone] (Phone) Lab orders up to date in [facility]. ANALYST documented in this encounter Plan of Treatment Not on filedocumented as of this encounter Visit Diagnoses Not on filedocumented in this encounter Care Teams Reporting Coordinator Relationship Specialty Start Date End Date Momo Forbes PCP - General Family Practice 01/02/14 [facility] [address] [place], [place] [phone] documented as of this encounter
--- OUTSIDE RECORDS SUMMARY | 2022-07-29 12:56 | XMS_ITS | Encounter Summary ---
:1950 Author Organization [place] Address Pending sale to [facility] [place] [address] Care Team Providers Name Role Phone Momo Forbes Primary Care Provider Reason for Visit Reason Onset Date Comments Refill Request 12/22/2018 prograf, mycophenola te (PT IS OUT OF MEDS) Encounter Details Date Type Department Care Team Description 12/22/[address] [facility] Joseph Quintana Refsid R alenest (prograf, Transplant Clinic MD Herminio mycophenolate (PT IS OUT [address] [facility] [address] [facility] SE OF MEDS)) [facility] 353 [facility] [phone] [place], [place] [phone] ( rk) Social History Tobacco Use Types [...] transplant documented in this encounter Care Teams Actimize Architect Relationship Specialty Start Date End Date Momo Forbes PCP - General Family Practice 01/02/14 [facility] [address] [place] [address] documented as of this encounter
--- OUTSIDE RECORDS SUMMARY | 2022-07-29 12:57 | XMS_ITS | Encounter Summary ---
:1950 Author Organization [place] Address [address] [place] [address] Care Team Providers Name Role Phone Momo Forbes Primary Care Provider Encounter Details Date Type Department Care Team Description 07/15/2017 Orders Only [facility] Loy Morales Kid olivia replaced by [facility] MD transplant Laboratory 420 [facility] 500 [facility] 609 [place] [phone] [id number] (Wo rk) Social History Tobacco Use Types [...] by Results for this MASS SPECTROMETRY AM BAD CREDIT COLLECTOR transplant procedure are in the results section. documented in this encounter Results (ABNORMAL) Tacrolimus level (07/15/2017 10:48 AM [facility] Method Time Signature Tacrolimus Last 0000 07/19/2017 [facility] Dose 07/15/17 10:[address] [facility] Tacrolimus 4.4 (L) 5.0 - 07/19/2017 [facility] Level 15.0 ug/L 2:[address] [facility] Comment: Tacrolimus Reference Range Kidney Transplant [...] Blood specimen 07/15/2017 10:48 7 (specimen) AM BAD CREDIT COLLECTOR 10:47 AM BAD CREDIT COLLECTOR Orlando Richey MD LAB - BLOOD ORDERABLES Performing Organization Address City/State/ZIP Code Phon e Number [facility] [place] [facility] [address] [address] [facility] 500 [place] [address] [facility] documented in this encounter Visit Diagnoses Diagnosis Kidney replaced by transplant documented in this encounter Care Teams Skin Installer Relationship Specialty Start Date End Date Momo Forbes PCP - General Family Practice 01/02/14 [facility] 1999 [place] [address] documented as of this encounter
--- OUTSIDE RECORDS SUMMARY | 2022-07-29 12:57 | XMS_ITS | Encounter Summary ---
:1950 Author Organization [place] Address [address] [place] [address] Care Team Providers Name Role Phone Momo Forbes Primary Care Provider Encounter Details Date Type Department Care Team Description 05/31/2017 Orders Only [facility] Loy Morales, Kid olivia replaced by [facility] MD transplant Laboratory 420 [facility] 500 [facility] 609 [place] [id number] (Wo rk) Social History Tobacco Use Types [...] (ABNORMAL) Tacrolimus level (05/30/2017 1:01 PM CDT) [facility] Method Time Signature Tacrolimus Last 05/29/17 05/31/2017 [facility] Dose 1930 1:05 PM CDT [facility] Tacrolimus 3.0 (L) 5.0 - 05/31/2017 [facility] Level 15.0 ug/L 7:54 PM CDT [facility] Comment: Tacrolimus Reference Range Kidney [...] its performa nce characteristics determined by the [facility], ??Special Chemistry Laboratory. [...] Code Phon e Number [facility] 500 [place] [address] [facility] documented in this encounter Visit Diagnoses Diagnosis Kidney replaced by transplant documented in this encounter Care Teams Cloth Measurer Machine Relationship Specialty Start Date End Date Momo Forbes PCP - General Family Practice 01/02/14 [facility] [address] [place] [address] documented as of this encounter
--- OUTSIDE RECORDS SUMMARY | 2022-07-29 12:57 | XMS_ITS | Encounter Summary ---
:1950 Author Organization [place] Address [facility] [place] [address] Care Team Providers Name Role Phone Momo Forbes Primary Care Provider Reason for Visit Reason Onset Date Comments Refill Request 10/10/2017 mycophenolae Encounter Details Date Type Department Care Team Description 10/10/2017 Refill M [facility] Joseph Quintana Refill R equest Transplant Clinic MD Herminio (mycophenolae ) [address] [place] [address] [phone] [place] [address] (Wo rk) Social History Tobacco [...] Fill Date: 09/01/17 Quantity: 180 Janelle Flowers [facility] [phone] GATION CLAIM REPRESENTATIVE documented in this encounter Plan of Treatment Not on filedocumented as of this encounter Visit Diagnoses Diagnosis Kidney transplanted Kidney replaced by transplant documented in this encounter Care Teams Crm Dynamics Developer Relationship Specialty Start Date End Date Momo Forbes PCP - General Family Practice 01/02/14 [facility] [address] [place] [address] documented as of this encounter
--- OUTSIDE RECORDS SUMMARY | 2022-07-29 12:57 | XMS_ITS | Encounter Summary ---
:1950 Author Organization [place] Address [address] [place] [address] Care Team Providers Name Role Phone Momo Forbes Primary Care Provider Joseph Quintana MD Unavailable Encounter Details Date Type Department Care Team Description 09/09/2017 External Order [facility] Nurse, Tx Kidney replaced by Results Transplant Clinic transplant [address] [place] [phone] Social History Tobacco Use Types Packs/Day [...] 07/15/2017 10:48 AM Result s for this FOX FARMER procedure are i n the results section. BASIC METABOLIC Routine 07/15/2017 10:48 AM Kidney replaced by Results for this PANEL FOX FARMER transplant procedure are i n the results [...] Results (ABNORMAL) Hemoglobin A1c (07/15/2017 10:48 AM FOX FARMER) Patholo gist Method Time Signature Hemoglobin A1C >14.0 (H) <=6.4 % LABDE SCAN (External) Specimen (Source) Anatomical Collection Method Collection Time Re ceived Time Location / / Volume Laterality Blood specimen 07/15/2017 10:48 (specimen) AM [facility] Narrative [facility] - 09/09/2017 9:36 PM [employer] F[employer]ER Verified by Sharon Martinez on 8. Patient Reported LAB - BLOOD ORDERABLES Performing Organization Address City/State/ZIP Code Phon e Number [facility] LABDE SCAN (ABNORMAL) Basic metabolic panel (07/15/2017 10:48 AM FOX FARMER) Analysis Performed At Patho logist Time Signature [...] 55 (L) >60 LABDE SCAN (if ml/min/1.7 Maldivian) 3m2 (External) GFR Estimated 46 (L) >60 LABDE SCAN (External) ml/min/1.7 3m2 Specimen (Source) Anatomical Collection Method Collection Time Re ceived Time Location / / Volume Laterality Blood specimen 07/15/2017 10:48 (specimen) AM FOX FARMER Narrative [facility] - 09/09/2017 9:36 PM FOX FARMER Verified by Sharon Martinez on 8. Orlando [...] Narrative [facility] - 09/09/2017 9:39 PM FOX FARMER Verified by Sharon Martinez on 8. Patient [...] Narrative [facility] - 09/09/2017 9:39 PM FOX FARMER Verified by Sharon Martinez on 8. Orlando [...] 51 (L) >60 LABDE SCAN (if ml/min/1.7 Maldivian) 3m2 (External) GFR Estimated 42 (L) >60 LABDE SCAN (External) ml/min/1.7 3m2 Specimen (Source) Anatomical Collection Method Collection Time Re ceived Time Location / / Volume Laterality Blood specimen 05/30/2017 9:32 AM (specimen) CDT Narrative [facility] - 09/09/2017 9:39 PM FOX FARMER Verified by Sharon Martinez on 8. Orlando [...] Narrative [facility] - 09/09/2017 9:44 PM FOX FARMER Verified by Sharon Martinez on 8. Patient Reported LAB - BLOOD ORDERABLES Performing Organization Address City/[facility]/ZIP Code Phon e Number [facility] LABDE [...] Narrative [facility] - 09/09/2017 9:44 PM FOX FARMER Verified by Sharon Martinez on 8. Patient Reported LAB - BLOOD ORDERABLES Performing Organization Address City/[facility] Code Phon e Number [facility] LABDE SCAN (ABNORMAL) Hemoglobin A1c (01/19/2017 9:30 AM CDT) Analysis Performed At [facility] logist Time Signature Hemoglobin A1C 12.4 (H) <=6.4 % LABDE SCAN (External) Specimen (Source) Anatomical Collection Method Collection Time Re ceived Time Location / / Volume Laterality Blood specimen 01/19/2017 9:30 AM (specimen) CDT Narrative [facility] - 09/09/2017 9:44 PM FOX FARMER Verified by Sharon Martinez on 8. Patient Reported LAB - BLOOD ORDERABLES Performing Organization Address City/[facility]/ZIP Code Phon e Number [facility] LABDE [...] 55 (L) >60 LABDE SCAN (if ml/min/1.7 Maldivian) 3m2 (External) GFR Estimated 46 (L) >60 LABDE SCAN (External) ml/min/1.7 3m2 Specimen (Source) Anatomical Collection Method Collection Time Re ceived Time Location / / Volume Laterality Blood specimen 01/19/2017 9:30 AM (specimen) CDT Narrative [facility] - 09/09/2017 9:44 PM FOX FARMER Verified by Sharon Martinez on 8. Patient Reported LAB - BLOOD ORDERABLES Performing Organization Address City/State/ZIP Code Phon e Number [facility] LABDE SCAN documented in this encounter Visit Diagnoses Diagnosis Kidney replaced by transplant documented in this encounter Care Teams Epidemiology Internship Relationship Specialty Start Date End Date Momo Forbes PCP - General Family Practice 01/02/14 [facility] [address] [place] [address] Joseph Quintana, Assigned Nephrology 03/29/21 MD Provider [address] [place] [address] 353 [facility] [address] [place] [address] documented as of this encounter
--- OUTSIDE RECORDS SUMMARY | 2022-07-29 12:57 | XMS_ITS | Encounter Summary ---
:1950 Author Organization [place] Address [address] [place] [address]. [place] [address] Care Team Providers Name Role Phone Momo Forbes Primary Care Provider Encounter Details Date Type Department Care Team Description 03/23/2017 Orders Only [facility] Rossi, Estefania [place] replaced by Nephrology Clinic transplant (Primary [address] Dx) [address] [place] [phone] Social History Tobacco Use Types Packs/Day Years [...] Primary documented in this encounter Care Teams Parts Clerk Plant Maintenance Relationship Specialty Start Date End Date Momo Forbes PCP - General Family Practice 01/02/14 [facility] [address] [place] [address] documented as of this encounter
--- OUTSIDE RECORDS SUMMARY | 2022-07-29 12:57 | XMS_ITS | Encounter Summary ---
:1950 Author Organization [place] Address [address] [facility] [place] [address] Care Team Providers Name Role Phone Momo Forbes Primary Care Provider Reason for Visit Reason Onset Date Comments Appointment 10/05/2017 Encounter Details Date Type Department Care Team Description 10/05/2017 Telephone [facility] Shiva Presley MD Appointment Nephrology [facility] [place] [address] [phone] Social History Tobacco Use Types Packs/Day Years [...] or concernsahead of appointment. Romi Rodriguez RN RACT LEAD documented in this encounter Plan of Treatment Not on filedocumented as of this encounter Visit Diagnoses Not on filedocumented in this encounter Care Teams Granite Chip Terrazzo Finisher Relationship Specialty Start Date End Date Momo Forbes PCP - General Family Practice 01/02/14 [facility] [address] [place] [address] documented as of this encounter
--- OUTSIDE RECORDS SUMMARY | 2022-07-29 12:57 | XMS_ITS | Encounter Summary ---
:1950 Author Organization [place] Address [address] [place] [address] Care Team Providers Name Role Phone ForbesMomo Primary Care Provider Reason for Visit Reason Onset Date Comments Transplant 06/01/2017 Diego returning call Left on 06/05/17 Encounter Details Date Type Department Care Team Description 06/01/2017 Telephone [facility] Shiva Kahn, residential nurse (Diego Transplant Clinic [facility] returning call Left [address] on 06/05/17) [place], [place] [phone] [place], [place] [phone] Social History Tobacco Use Types Packs/Day [...] VM to call him on Tuesday06/06/17. ADDENDUM: RECEPTION CENTRE MANAGER TASK: Call with questions and instruction [...] filedocumented in this encounter Care Teams Medical Donation Professional Relationship Specialty Start Date End Date Momo Fobres PCP - General Family Practice 01/02/[address] [address] documented as of this encounter
--- OUTSIDE RECORDS SUMMARY | 2022-07-29 12:57 | XMS_ITS | Encounter Summary ---
:1950 Author Organization [place] Address [address] [place] [address] Care Team Providers Name Role Phone Forbes, Momo He Primary Care Provider Encounter Details Date Type Department Care Team Description 05/30/2017 Hospital Encounter [facility] Orlando Richey, [facility] [address] [phone] (Wo rk) Social History Tobacco Use Types [...] filedocumented in this encounter Care Teams Small Products I Assembler Relationship Specialty Start Date End Date Momo Forbes PCP - General Family Practice 01/02/14 [facility] 1999 [place] [address] documented as of this encounter
--- OUTSIDE RECORDS SUMMARY | 2022-07-29 12:57 | XMS_ITS | Encounter Summary ---
:1950 Author Organization [place] Address [facility] [place] [address] Care Team Providers Name Role Phone Momo Forbes Primary Care Provider Reason for Visit Reason Onset Date Comments Transplant 08/31/2017 Encounter Details Date Type Department Care Team Description 08/31/2017 Telephone [facility] Transplant Amanda Garduno Transplant Clinic M, RN [address] [place] [address] [phone] Social History Tobacco Use Types Packs/Day [...] on filedocumented in this encounter Care Teams Recordist Relationship Specialty Start Date End Date Momo Forbes PCP - General Family Practice 01/02/14 [facility] [address] [place] [address] documented as of this encounter
--- OUTSIDE RECORDS SUMMARY | 2022-07-29 12:57 | XMS_ITS | Encounter Summary ---
:1950 Author Organization [place] Address [facility]0 [facility] [place] [address] Care Team Providers Name Role Phone Momo Forbes Primary Care Provider Reason for Visit Reason Onset Date Comments Refill Request 10/11/2017 Encounter Details Date Type Department Care Team Description 10/11/2017 Refill [facility] Transplant Debbie Calderon LPN Refill Request Clinic [address] [place] [address] [phone] Social History Tobacco Use Types Packs/Day [...] transplant documented in this encounter Care Teams Oyster Cultivator Relationship Specialty Start Date End Date Momo Forbes PCP - General Family Practice 01/02/14 [facility] [address] [place] [address] documented as of this encounter
--- OUTSIDE RECORDS SUMMARY | 2022-07-29 12:57 | XMS_ITS | Encounter Summary ---
:1950 Author Organization [place] Address [address] [place] [address] Care Team Providers Name Role Phone Momo Forbes Primary Care Provider Reason for Visit Reason Comments RECHECK Kidney tx follow up Encounter Details Date Type Department Care Team Description 10/10/2017 Office Visit [facility] Shiva Presley Sta tus post kidney transplant (Primary Dx); Nephrology Clinic Immunosuppression (H); [facility] Type 2 diabetes mellitus wit h stage 3 chronic kidney disease, with long-term current use of insulin (H); [address] [place] [address] Benign essential hypertension; [address] Hyperlipidemia, unspecified hyperlipidemia type; [place], [place] RANJAN 220 Skin cancer screening [phone] [place] [address] (Wo rk) Social History Tobacco [...] Comments Blood Pressure 153/74 10/10/2017 2:25 PM SIGNALS INTELLIGENCE ANALYST Pulse 55 10/10/2017 2:25 PM SIGNALS INTELLIGENCE ANALYST Temperature 36.7 ??C (98.1 ??F) 10/10/2017 2:25 PM SIGNALS INTELLIGENCE ANALYST Respiratory Rate - - Oxygen Saturation 98% 10/10/2017 2:25 PM SIGNALS INTELLIGENCE ANALYST Inhaled Oxygen Concentration - - Weight 135.4 kg (298 lb 6.4 oz) 10/10/2017 2:25 PM SIGNALS INTELLIGENCE ANALYST Height 182.9 cm (6') 10/10/2017 2:25 PM SIGNALS INTELLIGENCE ANALYST Body Mass Index 40.47 10/10/2017 2:25 PM SIGNALS INTELLIGENCE ANALYST documented in this encounter Progress Notes Shiva [...] is well as a referral to his motorcoach driver for monitoring for any skin cancers. 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 ALS INTELLIGENCE ANALYST documented in this encounter Nursing Notes Marcelina [...] oz). Medication Reconciliation: amparo ZURITA CMA . ALS INTELLIGENCE ANALYST documented in this encounter Plan of [...] skin documented in this encounter Care Teams Sld Teacher Relationship Specialty Start Date End Date Momo Forbes PCP - General Family Practice 01/02/14 [facility] [address] [place] [address] documented as of this encounter
--- OUTSIDE RECORDS SUMMARY | 2022-07-29 12:57 | XMS_ITS | Encounter Summary ---
:1950 Author Organization [place] Address [facility] hospital0 [facility] [place] [address] Care Team Providers Name Role Phone Momo Forbes Primary Care Provider Reason for Visit Reason Onset Date Comments Transplant Pharmacy Medication Review 01/26/2017 Encounter Details Date Type Department Care Team Description 01/26/2017 Telephone [facility] Janes Rodriguez, Transplant Pharmacy [address] [facility] [place] [place] [phone] Social History Tobacco Use Types Packs/Day Years [...] in this encounter Care Teams Tractor Trailer Technician Relationship Specialty Start Date End Date Momo Forbes PCP - General Family Practice 01/02/14 [facility] 1999 [place] [address] documented as of this encounter
--- OUTSIDE RECORDS SUMMARY | 2022-07-29 12:57 | XMS_ITS | Encounter Summary ---
:1950 Author Organization [place] Address [address] [place] [address] Care Team Providers Name Role Phone Momo Forbes Primary Care Provider Reason for Visit Reason Onset Date Comments Transplant 09/12/2017 Encounter Details Date Type Department Care Team Description 09/12/2017 Telephone [facility] Transplant Nazia Jacobson, Transplant Clinic RN 909 [place], [place] [phone] Social History Tobacco Use [...] standing lab order and faxed to [facility] lab. [facility]OM[facility] Telephone Encounter - Nazia Jacobson, RN - 09/12/2017 8:36 AM DIRECTOR WOMEN ISSUE: Hyperglycemia (blood sugar 300-600s w/ last 2 blood draws) Overdue for transplant labs PHARMACY TECHNICIAN INPATIENT TASK: Call Diego Guthrie and ask him who is managing his diabetes? Does he have an load dispatcher? He needs to have better blood sugar control, elevated blood sugars can cause damage to his kidney. Remind him that he should be getting transplant labs done monthly. (3 years out from kidney transplant) Send updated lab letter. [facility] WOMEN documented in this encounter Plan of Treatment Not on filedocumented as of this encounter Visit Diagnoses Not on filedocumented in this encounter Care Teams Court Interpreter Relationship Specialty Start Date End Date Momo Forbes PCP - General Family Practice 01/02/14 [facility] [address] [place] [address] documented as of this encounter
--- OUTSIDE RECORDS SUMMARY | 2022-07-29 12:57 | XMS_ITS | Encounter Summary ---
:1950 Author Organization [place] Address [facility] [place] [address] Care Team Providers Name Role Phone Momo Forbes Primary Care Provider Reason for Visit Reason Onset Date Comments Refill Request 06/28/2017 mycophenolate Encounter Details Date Type Department Care Team Description 06/28/2017 Refill M [facility] Joseph Quintana Refill R equest Transplant Clinic MD Herminio (mycophenolate) [address] [place] [phone] [place] [address] (Wo rk) Social History [...] Fill Date: 05/31/17 Quantity: 180 Janelle Lionel [facility] [phone] NISTRATIVE ACCOUNTANT documented in this encounter Plan of Treatment Not on filedocumented as of this encounter Visit Diagnoses Diagnosis Kidney transplanted - Primary Kidney replaced by transplant documented in this encounter Care Teams Rn Review Relationship Specialty Start Date End Date Momo Forbes PCP - General Family Practice 01/02/14 [facility] [address] [place] [address] documented as of this encounter
--- OUTSIDE RECORDS SUMMARY | 2022-07-29 12:58 | XMS_ITS | Encounter Summary ---
:1950 Author Organization [place] Address [address] [place] [address] Care Team Providers Name Role Phone Momo Forbes Primary Care Provider Reason for Visit Reason Onset Date Comments Transplant 03/30/2016 refill Encounter Details Date Type Department Care Team Description 03/30/2016 Refill The Transplant Deysi Burns MD Transplant (refill) 2nd Floor, Clinic [phone] [place] [address] [facility] [place] [phone] Social History Tobacco Use Types [...] Date: 02/19/16 Quantity: 240 Thanks!! Janelle Jackson [facility] documented in this encounter Plan of Treatment Not on filedocumented as of this encounter Visit Diagnoses Diagnosis Kidney transplanted - Primary Kidney replaced by transplant documented in this encounter Care Teams Watch Crystal Molder Relationship Specialty Start Date End Date Momo Forbes PCP - General Family Practice 01/02/14 [facility] [address] [place] [address] documented as of this encounter
--- OUTSIDE RECORDS SUMMARY | 2022-07-29 12:58 | XMS_ITS | Encounter Summary ---
:1950 Author Organization [place] Address [address] [facility] [place] [address] Care Team Providers Name Role Phone Momo Forbes Primary Care Provider Reason for Visit Reason Onset Date Comments Pre Visit Planning - Unable To Reach 10/14/2016 Encounter Details Date Type Department Care Team Description 10/14/2016 Telephone [facility] Anita Joshi MD Pre Visit Planning - Nephrology Clinic [address] [place] [address] Chelsea ble To Reach [address] [phone] Social History Tobacco Use Types Packs/Day Years Used Date Smoking Tobacco: Former Cigars Quit : 08/22/2006 Smokeless Tobacco: Never Alcohol Use Standard Drinks/Week Comments Yes 0 (1 standard drink = 0.6 oz pure alcoho l) occasional drink. Sex Assigned at Date Recorded Not on file documented as of this encounter Miscellaneous Notes Telephone Encounter - Monroe Zurita CANTEEN ATTENDANT - 10/14/2016 10:56 AM CST Ezekiel, this is office from Clinic 3[facility] at the [facility]. We are calling to remind you of your upcoming Nephrology appointment on 10/25/16 at 440pm. Please arrive about 1 hours prior to your appointment time for labs. Also, please bring an updated medication list or your labeled medication bottles with you to your appointment. If you have any questions or would like to cancel or reschedule your appointment, please call us at [phone]. You are welcome to have your labs done up to a week before your appointment at any [facility] or [facility] facility. If you have your labs completed before your appointment, please still come 30 minutes early for check-in MONROE ZURITA CMA TH SOCIAL WORK PROFESSOR documented in this encounter Plan of Treatment Not on filedocumented as of this encounter Visit Diagnoses Not on filedocumented in this encounter Care Teams Vascular Sonographer Relationship Specialty Start Date End Date Momo Forbes PCP - General Family Practice 01/02/14 [facility] [address] [place] [address] documented as of this encounter
--- OUTSIDE RECORDS SUMMARY | 2022-07-29 12:58 | XMS_ITS | Encounter Summary ---
:1950 Author Organization [place] Address [address] [place] [address] Care Team Providers Name Role Phone Momo Forbes Primary Care Provider Encounter Details Date Type Department Care Team Description 01/19/2017 Orders Only [facility] Loy Morales, Aft ercare following organ transplant; [facility] Kidney replaced by transplant; Laboratory [address] [facility] Encounter for long-term curr ent use of medication [address] [place] [address] [phone] (Wo rk) Social History Tobacco Use Types [...] Results Tacrolimus level (01/19/2017 9:25 AM CDT) [facility] Method Time Signature Tacrolimus Last 0800 [facility] Dose 01/19/17 [facility] Tacrolimus 6.5 5.0 - [facility] 15.0 ug/L [facility] Comment: Tacrolimus Reference Range Kidney Transplant Pediatric [...] Address City/State/ZIP Code Phon e Number [address] [address], [facility] documented in this encounter Visit Diagnoses Diagnosis Aftercare following organ transplant Kidney replaced by transplant Encounter for long-term current use of m edication documented in this encounter Care Teams Forest Fire Officer Relationship Specialty Start Date End Date Momo Forbes PCP - General Family Practice 01/02/14 [facility] [address] [place] [address] documented as of this encounter
--- OUTSIDE RECORDS SUMMARY | 2022-07-29 12:58 | XMS_ITS | Encounter Summary ---
:1950 Author Organization [place] Address [address] [place] [address] Care Team Providers Name Role Phone Momo Forbes Primary Care Provider Reason for Visit Reason Onset Date Comments Transplant 05/10/2016 refill Encounter Details Date Type Department Care Team Description 05/10/2016 Refill The Transplant Chucho Perez MD Transplant (refill) 2nd Floor, Clinic [address] [place] [address] [facility] [address] Social History Tobacco Use Types [...] send new rx Thank you Janelle Flowers [facility] [phone] documented in this encounter Plan of Treatment Not on filedocumented as of this encounter Visit Diagnoses Diagnosis Kidney transplanted - Primary Kidney replaced by transplant documented in this encounter Care Teams Pensions Retirement Plan Specialist Relationship Specialty Start Date End Date Momo Forbes PCP - General Family Practice 01/02/14 [facility] [address] [place] [phone] documented as of this encounter
--- OUTSIDE RECORDS SUMMARY | 2022-07-29 12:58 | XMS_ITS | Encounter Summary ---
:1950 Author Organization [place] Address [address] [place] [address] Care Team Providers Name Role Phone Momo Forbes Primary Care Provider Encounter Details Date Type Department Care Team Description 10/25/2016 Orders Only [facility] Thrombocytopenia (H); 909 [facility] Aftercare following organ tr ansplant; 1st Floor Kidney replaced by transplan t; [place], [place] Encounter fo r long-term current use [...] Thrombocytopenia (H) Resu lts for this PM TIP PUNCHER procedure are i n the results section. BASIC METABOLIC Routine 10/25/2016 3:54 Aftercare following Re sults for this PANEL PM TIP PUNCHER organ transplant procedure are in Kidney replaced by [facility] ts transplant section. Encounter for long-term current use of medication CBC WITH PLATELETS Routine 10/25/2016 3:54 Aftercare following Results for this PM TIP PUNCHER organ transplant procedure are in Kidney replaced by the [facility] ts transplant section. Encounter for long-term current use of medication PROTEIN RANDOM Routine 10/25/2016 3:52 Aftercare following Res ults for this URINE PM TIP PUNCHER organ transplant procedure are in Kidney replaced by the [facility] ts transplant section. Encounter for long-term current use of medication CREATININE URINE Routine 10/25/2016 3:52 Thrombocytopenia (H) Results for this CALCULATION ONLY PM TIP PUNCHER procedure a re in (LAB ONLY) the results section. documented in this encounter Results (ABNORMAL) Basic metabolic panel (10/25/2016 3:54 PM TIP PUNCHER) Patholo gist Method Time Signature Sodium 142 133 - 144 [facility] mmol/L [facility] Potassium 4.2 3.4 - 5.3 [facility] mmol/L [facility] Chloride 108 94 - 109 [facility] mmol/L [facility] Carbon Dioxide 28 20 - 32 [facility] mmol/L [facility] Anion Gap 7 3 - 14 [facility] mmol/L [facility] Glucose 120 (H) 70 - 99 [facility] mg/dL [facility] Urea Nitrogen 19 7 - 30 [facility] mg/dL [facility] Creatinine 1.39 (H) 0.66 - [facility] 1.25 mg/dL [facility] GFR Estimate 51 (L) >60 [facility] mL/min/1.7 [place] m2 [facility] Comment: Non GFR Calc GFR Estimate If Black 62 >60 mL/min/1.7m2 [facility] Comment: GFR Calc Calcium 9.4 8.5 - 10.1 mg/dL [facility] Specimen Anatomical Collection Method Collection Time Receive d Time (Source) Location / / Volume Laterality Blood specimen 10/25/2016 3:54 PM 017 3:55 (specimen) TIP PUNCHER PM TIP PUNCHER Cuhcho Joshi MD LAB - BLOOD ORDERABLES Performing Organization Address City/State/ZIP Code Phon e Number [address] [address] [facility] (ABNORMAL) CBC with platelets (10/25/2016 3:54 PM TIP PUNCHER) Analysis Performed At Patho logist Time Signature WBC 5.1 4.0 - 11.0 [facility] 10e9/L [facility] RBC Count 5.50 4.4 - 5.9 [facility] 10e12/L [facility] Hemoglobin 15.5 13.3 - [facility] 17.7 g/dL [facility] Hematocrit 46.0 40.0 - [facility] 53.0 % [facility] MCV 84 78 - 100 [facility] fl [facility] MCH 28.2 26.5 - [facility] 33.0 pg [facility] MCHC 33.7 31.5 - [facility] 36.5 g/dL [facility] RDW 14.1 10.0 - [facility] 15.0 % [facility] Platelet Count 124 (L) 150 - 450 [facility] 10e9/L [facility] Specimen Anatomical Collection Method Collection Time Receive d Time (Source) Location / / Volume Laterality Blood specimen 10/25/2016 3:54 PM 017 3:55 (specimen) TIP PUNCHER PM TIP PUNCHER Chucho Joshi MD LAB - BLOOD ORDERABLES Performing Organization Address City/[facility]/ZIP Code Phon e Number [address] [address] [facility] Folate RBC (10/25/2016 3:54 PM TIP PUNCHER) athologist Signature HCT Within 46.0 % [facility] Past 24h [facility] Folate RBC 663 ng/mL [facility] Comment: Reference range: >=366 (Note) Performed by [employer], [address] [place] [id number] [email or web address], Geoff Reed MD, Lab. Director Specimen Anatomical Collection Method Collection Time Receive d Time (Source) Location / / Volume Laterality Blood specimen 10/25/2016 3:54 PM 017 3:55 (specimen) TIP PUNCHER PM TIP PUNCHER Chucho Joshi MD LAB - BLOOD ORDERABLES Performing Organization Address City/State/ZIP Code Phon e Number [address] [address] [facility] Creatinine urine calculation only (10/25/2016 3:52 PM TIP PUNCHER) P athologist Signature Creatinine 152 mg/dL [employer] Specimen Anatomical Collection Method Collection Time Receive d Time (Source) Location / / Volume Laterality 10/25/2016 3:52 PM 7 4:12 TIP PUNCHER PM TIP PUNCHER Chucho Joshi MD LAB - URINE ORDERABLES Performing Organization Address City/State/ZIP Code Phon e Number [facility] [address] [address] [facility] [address] [place] [address], [place] [phone] (ABNORMAL) Protein random urine (10/25/2016 3:52 PM TIP PUNCHER) Analysis Performed At Patho logist Time Signature Protein Random 0.48 g/L [facility] Urine [facility] Protein Total 0.31 (H) 0 - 0.2 [place] Urine g/gr g/g Cr [facility] Specimen Anatomical Collection Method Collection Time Receive d Time (Source) Location / / Volume Laterality Urine specimen 10/25/2016 3:52 PM 017 4:12 (specimen) TIP PUNCHER PM TIP PUNCHER Chucho Joshi MD LAB - URINE ORDERABLES Performing Organization Address City/State/ZIP Code Phon e Number [facility] [address] [address] [phone] [facility] [address] [address], [place] [phone] documented in this encounter Visit Diagnoses Diagnosis Thrombocytopenia (H) Thrombocytopenia, unspecified Aftercare following organ transplant Kidney replaced by transplant Encounter for long-term current use of m edication documented in this encounter Care Teams Mainframe Programmer Relationship Specialty Start Date End Date Momo Forbes PCP - General Family Practice 01/02/14 [facility] [address] [place] [address] documented as of this encounter
--- OUTSIDE RECORDS SUMMARY | 2022-07-29 12:58 | XMS_ITS | Encounter Summary ---
:1950 Author Organization [place] Address [address] [place] [address] Care Team Providers Name Role Phone Momo Forbes Primary Care Provider Joseph Quintana MD Unavailable Encounter Details Date Type Department Care Team Description 05/03/2016 External Order Results [facility] Nurse, [facility] Transplant Clinic [address] [place] [address] Social History Tobacco Use Types [...] on filedocumented in this encounter Care Teams Vial Gauger Relationship Specialty Start Date End Date Momo Forbes PCP - General Family Practice 01/02/14 [facility] [address] [place] [address] Joseph Quintana, Assigned Nephrology 03/29/21 MD Provider 7 [facility] 353 [facility] [address] [place] [address] documented as of this encounter
--- OUTSIDE RECORDS SUMMARY | 2022-07-29 12:58 | XMS_ITS | Encounter Summary ---
:1950 Author Organization [place] Address [address] [place] [address] Care Team Providers Name Role Phone Forbes, Ton Primary Care Provider Encounter Details Date Type Department Care Team Description 07/22/2016 Orders Only [facility], Joseph Conor isael, [facility] 500 [facility] [address] [place] [address] [phone] [place] [address] [place] [address] (Wo rk) Social History Tobacco [...] Res ults for this MASS SPECTROMETRY PM TUBE MAN procedure are in the results section. documented in this encounter Results (ABNORMAL) Tacrolimus level (08/09/2016 12:15 PM TUBE MAN) [facility] Method Time Signature Tacrolimus Last 08/08/16 [...] / Volume Laterality 08/09/2016 12:15 08/11/2016 PM TUBE MAN 10:15 AM TUBE MAN Deysi Alicea MD LAB - BLOOD ORDERABLES Performing Organization Address City/State/ZIP Code Phon e Number [facility] [address] documented in this encounter Visit Diagnoses Not on filedocumented in this encounter Care Teams Payroll Director Relationship Specialty Start Date End Date Momo Forbes PCP - General Family Practice 01/02/14 [facility] [address] [place] [phone] documented as of this encounter
--- OUTSIDE RECORDS SUMMARY | 2022-07-29 12:58 | XMS_ITS | Encounter Summary ---
:1950 Author Organization [place] Address [facility] [place] [address] Care Team Providers Name Role Phone Momo Forbes Primary Care Provider Reason for Visit Reason Onset Date Comments Transplant 12/02/2016 refill Encounter Details Date Type Department Care Team Description 12/02/2016 Refill [facility] Anita Joshi MD Transplant (refill) Nephrology Clinic [address] [place] [address] (Wo rk) [address] [phone] Social History Tobacco Use Types Packs/Day Years [...] transplant documented in this encounter Care Teams Budget Controller Relationship Specialty Start Date End Date Momo Forbes PCP - General Family Practice 01/02/14 [facility] [address] [place] [address] documented as of this encounter
--- OUTSIDE RECORDS SUMMARY | 2022-07-29 12:58 | XMS_ITS | Encounter Summary ---
:1950 Author Organization [place] Address [facility] [place] [address] Care Team Providers Name Role Phone Momo Forbes Primary Care Provider Reason for Visit Reason Comments RECHECK Kidney follow up Encounter Details Date Type Department Care Team Description 10/25/2016 Office Visit [facility] Anita Joshi MD Renal hypertension, Nephrology Clinic [address] [place] [address] 1-4 or [place] [address] unspecified chronic [address] [place], [place] [address] (Primary Dx) [address] [phone] Social History Tobacco Use Types Packs/Day Years [...] Comments Blood Pressure 168/83 10/25/2016 4:39 PM [employer] Pulse 55 10/25/2016 4:39 PM [employer] Temperature 36.8 ??C (98.3 ??F) 10/25/2016 4:39 PM [employer] Respiratory Rate 18 10/25/2016 4:39 PM [employer] Oxygen Saturation - - Inhaled Oxygen Concentration - - Weight 138.2 kg (304 lb 9.6 oz) 10/25/2016 4:39 PM [employer] Height 182.9 cm (6') 10/25/2016 4:39 PM [employer] Body Mass Index 41.31 10/25/2016 4:39 PM [employer] documented in this encounter Progress Notes Chucho [...] (304 lb 9.6 oz). Medication Reconciliation: complete [employer] documented in this encounter Plan of Treatment Not on filedocumented as of this encounter Visit Diagnoses Diagnosis Renal hypertension, stage 1-4 or unspeci fied chronic kidney disease - Primary documented in this encounter Care Teams Melter Supervisor Relationship Specialty Start Date End Date Momo Forbes PCP - General Family Practice 01/02/14 [facility] [address] [place] [address] documented as of this encounter
--- OUTSIDE RECORDS SUMMARY | 2022-07-29 12:58 | XMS_ITS | Encounter Summary ---
:1950 Author Organization [place] Address [facility] [place] [address] Care Team Providers Name Role Phone Momo Forbes Primary Care Provider Reason for Visit Reason Onset Date Comments Transplant 04/20/2016 refill Encounter Details Date Type Department Care Team Description 04/20/2016 Refill [facility] Joseph Quintana, Transplant (refill) Transplant Clinic [address] [place] [phone] [place], [place] [phone] (Wo rk) Social History Tobacco Use Types [...] documented in this encounter Care Teams Health Information Manager Relationship Specialty Start Date End Date Momo Forbes PCP - General Family Practice 01/02/14 [facility] [address] [place] [address] documented as of this encounter
--- OUTSIDE RECORDS SUMMARY | 2022-07-29 12:58 | XMS_ITS | Encounter Summary ---
:1950 Author Organization [place] Address [address] [place] [address] Care Team Providers Name Role Phone Momo Forbes Primary Care Provider Joseph Quintana MD Unavailable Encounter Details Date Type Department Care Team Description 03/18/2016 External Order Results [facility] Nurse, [facility] Transplant Clinic 9 [place] [address] Social History Tobacco Use Types [...] External Lab Result (03/17/2016 10:45 AM CDT) [facility] Method Time Signature Sodium (External) 139 [...] filedocumented in this encounter Care Teams Direct Mail Manager Relationship Specialty Start Date End Date Momo Forbes PCP - General Family Practice 5/14/14 [facility] [address] [place] [address] Joseph Quintana, Assigned Nephrology 03/29/21 MD Provider [address] [place] [address] [address] [place] [address] documented as of this encounter
--- OUTSIDE RECORDS SUMMARY | 2022-07-29 12:58 | XMS_ITS | Encounter Summary ---
:1950 Author Organization [place] Address [facility] [place] [address] Care Team Providers Name Role Phone Momo Forbes Primary Care Provider Reason for Visit Reason Onset Date Comments Refill Request 09/28/2016 Encounter Details Date Type Department Care Team Description 09/28/[address] [facility] Anita Joshi MD Refill Request Nephrology Clinic [address] [place] [address] [place] [phone] Social History Tobacco Use Types Packs/Day Years [...] 1:51 PM CST Last Office Visit with Supervisor Motor Vehicle Assembly: March 2016. Medication refilled per Nephrology Clinic protocol. Janes Jauregui RN OR ELECTRONICS DESIGN ENGINEER documented in this encounter Plan of Treatment Not on filedocumented as of this encounter Visit Diagnoses Diagnosis Reactive depression - Primary Dysthymic disorder documented in this encounter Care Teams Chimney Builder Relationship Specialty Start Date End Date Momo Forbes PCP - General Family Practice 01/02/[address] [place] [address] documented as of this encounter
--- OUTSIDE RECORDS SUMMARY | 2022-07-29 12:58 | XMS_ITS | Encounter Summary ---
:1950 Author Organization [place] Address [address] [place] [address] Care Team Providers Name Role Phone Momo Forbes Primary Care Provider Joseph Quintana MD Unavailable Encounter Details Date Type Department Care Team Description 08/18/2016 External Order Results [facility] Nurse, [facility] Transplant Clinic 9 [place] [address] Social History Tobacco Use Types [...] 08/09/2016 12:21 PM Results for this RESULTS COMMAND AND CONTROL SPECIALIST procedure are i n the results section. documented in this encounter Results (ABNORMAL) TXP External Lab Result (08/09/2016 12:21 PM COMMAND AND CONTROL SPECIALIST) Analysis Performed At Patho logist Time [...] / / Volume Laterality 08/09/2016 12:21 PM COMMAND AND CONTROL SPECIALIST Narrative [facility] - 08/18/2016 1:35 PM COMMAND AND CONTROL SPECIALIST Verified by Jessica Major on 016. Patient Reported LABORATORY Performing Organization Address City/State/ZIP Code Phon e Number [facility] documented in this encounter Visit Diagnoses Not on filedocumented in this encounter Care Teams Senior Web Engineer Relationship Specialty Start Date End Date Momo Forbes PCP - General Family Practice 01/02/14 [facility] [address] [place] [address] Joseph Quintana, Assigned Nephrology 03/29/21 MD Provider [address] [place] [address] [address] [place], [place] [phone] documented as of this encounter
--- OUTSIDE RECORDS SUMMARY | 2022-07-29 12:58 | XMS_ITS | Encounter Summary ---
:1950 Author Organization [place] Address [facility] [place] [address] Care Team Providers Name Role Phone Momo Forbes Primary Care Provider Reason for Visit Reason Comments RECHECK 6 mo follow up,christiano cruz Encounter Details Date Type Department Care Team Description 04/20/2016 [facility] Renal hypertension, stage 1-4 or unspecified chronic kidney disease (Primary Dx); Nephrology Clinic Reactive depression; [address] Thrombocytopenia (H) 909 [facility] RANJAN [address] [place] [address] Social History Tobacco Use Types Packs/Day [...] Body Mass Index 41.55 09/02/2015 4:32 PM RENDERING EQUIPMENT TENDER documented in this encounter Progress Notes Chucho [...] encounter Results Folate RBC (10/25/2016 3:54 PM RENDERING EQUIPMENT TENDER) athologist Signature HCT Within 46.0 % [address] Folate RBC 663 ng/mL [facility] Comment: Reference range: >=366 (Note) Performed by [facility], [address] [place] [address] [email or web address], Geoff Reed MD, Lab. Director Specimen Anatomical Collection Method Collection Time Receive d Time (Source) Location / / Volume Laterality Blood specimen 10/25/2016 3:54 PM 017 3:55 (specimen) RENDERING EQUIPMENT TENDER PM RENDERING EQUIPMENT TENDER Chucho Joshi MD LAB - BLOOD ORDERABLES Performing Organization Address City/State/ZIP Code Phon e Number [address] [address] [facility] documented in this encounter Visit Diagnoses Diagnosis Renal hypertension, stage 1-4 or unspeci fied chronic kidney disease - Primary Reactive depression Dysthymic disorder Thrombocytopenia (H) Thrombocytopenia, unspecified documented in this encounter Care Teams Gut Puller Relationship Specialty Start Date End Date Momo Forbes PCP - General Family Practice 01/02/14 [facility] [address] [place] [address] documented as of this encounter
--- OUTSIDE RECORDS SUMMARY | 2022-07-29 12:59 | XMS_ITS | Encounter Summary ---
:1950 Author Organization [place] Address [address] [place] [address] Care Team Providers Name Role Phone Ingrid Santana RN Unavailable Unavailable Momo Forbes Primary Care Provider Reason for Visit Reason Onset Date Comments Refill Request 02/10/2015 mycophenolate, smz/t mp Encounter Details Date Type Department Care Team Description 02/10/2015 Refill The Transplant Deysi Burns, Refill Request 2nd Floor, Clinic 2A MD (mycophenolate, Sanders Wangensteen [facility] smz/tmp) Building [address] [place] [phone] [place] [address] [place] [address] Social History Tobacco Use Types [...] Fill Date: 01/09/15 Last Fill Quantity: 240 [id number] Last Fill Date: 01/09/15 Last Fill Quantity: 31 Gayath[facility] [address] [facility] [address] documented in this encounter Plan of Treatment Not on filedocumented as of this encounter Visit Diagnoses Diagnosis S/P kidney transplant - Primary Kidney replaced by transplant documented in this encounter Care Teams Hat Body Sorter Relationship Specialty Start Date End Date Momo Forbes PCP - General Family Practice 01/02/[address] [address] Ingrid Santana, RN Registered Nurse Transplant 02/10/12 documented as of this encounter
--- OUTSIDE RECORDS SUMMARY | 2022-07-29 12:59 | XMS_ITS | Encounter Summary ---
:1950 Author Organization [place] Address [facility] [place] [address] Care Team Providers Name Role Phone Momo Forbes Primary Care Provider Reason for Visit Reason Onset Date Comments Transplant 02/19/2016 refill Encounter Details Date Type Department Care Team Description 02/19/2016 Refill The Transplant Deysi Burns MD Transplant (refill) 2nd Floor, Clinic [address] [place] [address] [place] [address] Social History Tobacco Use Types [...] documented in this encounter Care Teams Marine Plumber Relationship Specialty Start Date End Date Momo Forbes PCP - General Family Practice 01/02/14 [facility] [address] [place] [address] documented as of this encounter
--- OUTSIDE RECORDS SUMMARY | 2022-07-29 12:59 | XMS_ITS | Encounter Summary ---
:1950 Author Organization [place] Address [address] [place] [address] Care Team Providers Name Role Phone Ingrid Santana RN Unavailable Unavailable Momo Forbes Primary Care Provider Encounter Details Date Type Department Care Team Description 07/22/2015 Orders Only [facility] Dereck Dangelo MD [facility] Laborato ry 420 [facility] 195 500 [place], [place] [id number] [place] [address] [phone] Social History Tobacco Use Types Packs/Day Years [...] PM R esults for this MASS SPECTROMETRY ANIMAL ANATOMY TEACHER procedure are in the results section. documented in this encounter Results Tacrolimus level (08/12/2015 4:35 PM ANIMAL ANATOMY TEACHER) [facility] Method Time Signature Tacrolimus Last 0700 [facility] Dose 08/12/15 [facility] Tacrolimus 5.3 5.0 - [facility] Level 15.0 ug/L [facility] Comment: Tacrolimus Reference Range Kidney [...] its perform ance characteristics determined by the [facility], [...] Laterality 08/12/2015 4:35 PM 08/18/ 5 9:11 ANIMAL ANATOMY TEACHER AM ANIMAL ANATOMY TEACHER Mingo Dangelo MD LAB - BLOOD ORDERABLES Performing Organization Address City/State/ZIP Code Phon e Number [facility] [address] documented in this encounter Visit Diagnoses Not on filedocumented in this encounter Care Teams Drawbridge Operator Relationship Specialty Start Date End Date Momo Forbes PCP - General Family Practice 01/02/14 [facility] [address] [place] [address] Ingrid Santana, RN Registered Nurse Transplant 02/10/12 documented as of this encounter
--- OUTSIDE RECORDS SUMMARY | 2022-07-29 12:59 | XMS_ITS | Encounter Summary ---
:1950 Author Organization [place] Address [facility] [place] [address] Care Team Providers Name Role Phone Momo Forbes Primary Care Provider Reason for Visit Reason Onset Date Comments Transplant Pharmacy Medication Review 02/05/2016 Encounter Details Date Type Department Care Team Description 02/05/2016 Telephone [facility] Nani Humphrey, [facility] Transplant Pharmacy 500 [facility] [place] [address] [place] [phone] 711 [place] [address] (Wo rk) Social History Tobacco Use Types [...] on filedocumented in this encounter Care Teams Electroplating Laborer Relationship Specialty Start Date End Date Momo Forbes PCP - General Family Practice 01/02/14 [facility] 1999 [place] [address] documented as of this encounter
--- OUTSIDE RECORDS SUMMARY | 2022-07-29 12:59 | XMS_ITS | Encounter Summary ---
:1950 Author Organization [place] Address [address] [place] [address] Care Team Providers Name Role Phone Ingrid Santana RN Unavailable Unavailable Momo Forbes Primary Care Provider Reason for Visit Reason Onset Date Comments Medication Question 09/12/2014 Encounter Details Date Type Department Care Team Description 09/12/2014 Telephone PHARMACY Beny Staton Geovanni Medication Question 500 [facility] [place] [address] PHARMACY [phone] [place] [address] Social History Tobacco Use Types [...] his dr told himhis bp was good. documented in this encounter Plan of Treatment Not on filedocumented as of this encounter Visit Diagnoses Not on filedocumented in this encounter Care Teams Wet Wheeler Relationship Specialty Start Date End Date Momo Forbes PCP - General Family Practice 01/02/14 [facility] [address] [place] [address] Ingrid Santana, RN Registered Nurse Transplant 02/10/12 documented as of this encounter
--- OUTSIDE RECORDS SUMMARY | 2022-07-29 12:59 | XMS_ITS | Encounter Summary ---
:1950 Author Organization [place] Address [facility] [address] Care Team Providers Name Role Phone Momo Forbes Primary Care Provider Reason for Visit Reason Onset Date Comments Transplant 01/16/2016 refill Encounter Details Date Type Department Care Team Description 01/16/2016 Refill The Transplant Deysi Burns MD Transplant (refill) 2nd Floor, Clinic [address]A [address] [place] [address] [facility] [address] Social History Tobacco Use Types [...] transplant documented in this encounter Care Teams Crime Scene Analyst Relationship Specialty Start Date End Date Momo Forbes PCP - General Family Practice 01/02/14 [facility] [address] [place] [address] documented as of this encounter
--- OUTSIDE RECORDS SUMMARY | 2022-07-29 12:59 | XMS_ITS | Encounter Summary ---
:1950 Author Organization [place] Address [address] [place] [address] Care Team Providers Name Role Phone Ingrid Santana RN Unavailable Unavailable Momo Forbes Primary Care Provider Encounter Details Date Type Department Care Team Description 12/30/2014 Orders Only The Transplant Shiva Arias, RN -donor kidney 2nd Floor, Clinic 2A [facility] transplant recipient Tommy Guillermoteen 420 [facility] (Primary Dx) Building [address] [place] [address] [place] [address] Social History Tobacco Use Types [...] transplant documented in this encounter Care Teams Reprographics Associate Relationship Specialty Start Date End Date Momo Forbes PCP - General Family Practice 01/02/14 [facility] 1999 [place] [phone] Ingrid Santana, RN Registered Nurse Transplant 02/10/12 documented as of this encounter
--- OUTSIDE RECORDS SUMMARY | 2022-07-29 12:59 | XMS_ITS | Encounter Summary ---
:1950 Author Organization [place] Address [address] [place] [address] Care Team Providers Name Role Phone Ingrid Santana RN Unavailable Unavailable Momo Forbes Primary Care Provider Joseph Quintana MD Unavailable Encounter Details Date Type Department Care Team Description 08/14/2015 External Order Results The Transplant Ce nter Nurse, [facility] 2nd Floor, Clinic [address]A [address] [address] Social History Tobacco Use Types [...] 4:41 PM Results f or this RESULTS CLOCK ASSEMBLER procedure are i n the results section. documented in this encounter Results (ABNORMAL) TXP External Lab Result (08/12/2015 4:41 PM CLOCK ASSEMBLER) Analysis Performed At Patho logist Time Signature [...] 59 (L) >60 LABDE SCAN (if mL/min/1.7 Bahamian) 3/m2 (External) GFR Estimated 48 (L) >60 [...] / / Volume Laterality 08/12/2015 4:41 PM CLOCK ASSEMBLER Narrative JESSICA PFT - 08/14/2015 9:25 AM CLOCK ASSEMBLER Verified by Freddy Mehta on 08/14. Patient Reported LABORATORY Performing Organization Address City/State/ZIP Code Phon e Number [facility]DE SCAN documented in this encounter Visit Diagnoses Not on filedocumented in this encounter Care Teams Director Child Abuse Therapy Relationship Specialty Start Date End Date Momo Forbes PCP - General Family Practice 01/02/14 [facility] [address] [place] [address] Ingrid Santana, RN Registered Nurse Transplant 02/10/12 Joseph Quintana, Assigned Nephrology 03/29/21 MD Provider [address] [place] [address] 1932 [place] [address] documented as of this encounter
--- OUTSIDE RECORDS SUMMARY | 2022-07-29 12:59 | XMS_ITS | Encounter Summary ---
:1950 Author Organization [place] Address [address] [place] [address] Care Team Providers Name Role Phone Ingrid Santana RN Unavailable Unavailable Momo Forbes Primary Care Provider Encounter Details Date Type Department Care Team Description 10/20/2014 Orders Only [facility], Joseph Conor [facility], [facility] [place] [address] [phone] [place] [address] 010 [place] [address] (Wo rk) Social History Tobacco [...] Results Tacrolimus level (11/05/2014 8:29 AM CDT) [facility] Method Time Signature Tacrolimus Last 2029, [facility] Dose 11/04/14 [facility] Tacrolimus 7.7 5.0 - [facility] Level 15.0 ug/L [facility] Comment: Tacrolimus Reference Range [...] [facility] [address] documented in this encounter Visit Diagnoses Not on filedocumented in this encounter Care Teams Development Technical Lead Relationship Specialty Start Date End Date Momo Forbes PCP - General Family Practice 01/02/14 [place] [phone] Ingrid Santana, RN Registered Nurse Transplant 02/10/12 documented as of this encounter
--- OUTSIDE RECORDS SUMMARY | 2022-07-29 12:59 | XMS_ITS | Encounter Summary ---
:1950 Author Organization [place] Address [facility] [place] [address] Care Team Providers Name Role Phone Ingrid Santana RN Unavailable Unavailable Momo Forbes Primary Care Provider Reason for Referral Consultation - Closed Specialty Diagnoses / Procedures Referred By Contact Refer red To Contact Diagnoses Morbid obesity due to excess calories (H) Deysi Alicea MD [facility] [address] [place] [id number] Referral ID Status Reason Start Date Expiration Date Visits Requ ested Visits Authorized [id number] Closed 09/02/2015 09/01/2016 1 1 NATOR ASSEMBLER Reason for Visit Reason Comments RECHECK Follow up Kidney TX 4 Encounter Details Date Type Department Care Team Description 09/02/2015 Office Visit Nephrology Deysi Alicea, S/P kidney transplant (Prima ry Dx); 2nd Floor, Clinic 2A Morbid obesity due to excess calories (H ) Tommy Wilburn [address] [place] [id number] [place] [address] (Wo rk) [address] [phone] Social History Tobacco Use Types Packs/Day Years [...] Comments Blood Pressure 128/72 09/02/2015 4:32 PM DETONATOR ASSEMBLER Pulse 61 09/02/2015 4:32 PM DETONATOR ASSEMBLER Temperature 36.7 ??C (98 ??F) 09/02/2015 4:32 PM DETONATOR ASSEMBLER Respiratory Rate - - Oxygen Saturation 94% 09/02/2015 4:32 PM DETONATOR ASSEMBLER Inhaled Oxygen Concentration - - Weight 141.8 kg (312 lb 9.6 oz) 09/02/2015 4:32 PM DETONATOR ASSEMBLER Height 182.9 cm (6' 0.01) 09/02/2015 4:32 PM DETONATOR ASSEMBLER Body Mass Index 42.39 09/02/2015 4:32 PM DETONATOR ASSEMBLER documented in this encounter Progress Notes Deysi [...] discharged on Cumadin; Cumadin was stopped by cotton ginner helper during the follow up visit, as [...] Years of Education: 14 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 BP completed using cuff size: large NATOR ASSEMBLER documented in this encounter Plan of [...] ) documented in this encounter Care Teams Fisher Net Relationship Specialty Start Date End Date Momo Forbes PCP - General Family Practice 01/02/14 [facility] [address] [place] [address] Ingrid Santana, RN Registered Nurse Transplant 02/10/12 documented as of this encounter
--- OUTSIDE RECORDS SUMMARY | 2022-07-29 12:59 | XMS_ITS | Encounter Summary ---
:1950 Author Organization [place] Address [facility] [address] Care Team Providers Name Role Phone Momo Forbes Primary Care Provider Reason for Visit Reason Onset Date Comments Transplant 02/19/2016 refill Encounter Details Date Type Department Care Team Description 02/19/2016 Refill The Transplant Deysi Burns MD Transplant (refill) 2nd Floor, Clinic [address]A [address] [place] [address] [facility] [place] [address] Social History Tobacco Use Types [...] documented in this encounter Care Teams Senior Drafter Relationship Specialty Start Date End Date Momo Forbes PCP - General Family Practice 01/02/14 [facility] 1999 [place] [address] documented as of this encounter
--- OUTSIDE RECORDS SUMMARY | 2022-07-29 12:59 | XMS_ITS | Encounter Summary ---
:1950 Author Organization [place] Address [facility] [place] [address] Care Team Providers Name Role Phone Ingrid Santana RN Unavailable Unavailable Momo Forbes Primary Care Provider Encounter Details Date Type Department Care Team Description 10/04/2014 External Order Results The Transplant Ce nter Nurse, [facility] 2nd Floor, Clinic 2A [address] [address] Social History Tobacco Use Types [...] 8:33 AM Results f or this RESULTS COURT OPERATIONS CLERK procedure are i n the results section. documented in this encounter Results (ABNORMAL) TXP External Lab Result (10/03/2014 8:[address] OPERATIONS CLERK) Analysis Performed At Patho logist Time Signature [...] 57 (L) >60 LABDE SCAN (if ml/min/1.7 Qatari) 3m2 (External) GFR Estimated 47 (L) >60 [...] / / Volume Laterality 10/03/2014 8:[address] OPERATIONS CLERK Narrative ZACHERYTYLER PFT - 10/04/2014 8:[address] OPERATIONS CLERK Verified by Josseline Palma on 5. Patient Reported LABORATORY Performing Organization Address City/State/ZIP Code Phon e Number [facility] LABDE SCAN documented in this encounter Visit Diagnoses Not on filedocumented in this encounter Care Teams Fashion Intern Relationship Specialty Start Date End Date Momo Forbes PCP - General Family Practice 01/02/14 [facility] [address] [place] [address] Ingrid Santana, RN Registered Nurse Transplant 02/10/12 documented as of this encounter
--- OUTSIDE RECORDS SUMMARY | 2022-07-29 12:59 | XMS_ITS | Encounter Summary ---
:1950 Author Organization [place] Address [address] [place] [address] Care Team Providers Name Role Phone Ingrid aSntana RN Unavailable Unavailable Momo Forbes Primary Care Provider Reason for Visit Reason Onset Date Comments Medication Question 01/17/2015 Encounter Details Date Type Department Care Team Description 01/17/2015 Telephone PHARMACY Beny Staton Geovanni Medication Question 500 [facility] [place] [address] PHARMACY [phone] [place] [address] Social History Tobacco Use Types [...] keep better tabs. His last to in [place] were good but that was 8 months ago. Beny Staton [facility] Specialty Pharmacist [phone] documented in this encounter Plan of Treatment Not on filedocumented as of this encounter Visit Diagnoses Not on filedocumented in this encounter Care Teams Business And Financial Counsel Relationship Specialty Start Date End Date Momo Forbes PCP - General Family Practice 01/02/14 [facility] [address] [place] [address] Ingrid Santana, RN Registered Nurse Transplant 02/10/12 documented as of this encounter
--- OUTSIDE RECORDS SUMMARY | 2022-07-29 12:59 | XMS_ITS | Encounter Summary ---
:1950 Author Organization [place] Address [address] [place] [address] Care Team Providers Name Role Phone Forbes, Ton Primary Care Provider Encounter Details Date Type Department Care Team Description 02/20/2016 Orders Only [facility], Joseph Conor isael, [facility] 500 [facility] [address] [place] [phone] [place] [address] [place] [address] (Wo rk) Social History Tobacco [...] (ABNORMAL) Tacrolimus level (03/17/2016 10:44 AM CDT) [facility] Method Time Signature Tacrolimus Last 2100 [facility] Dose 03/16/16 [facility] Tacrolimus 4.2 (L) 5.0 - [facility] Level 15.0 ug/L [facility] Comment: Tacrolimus Reference Range [...] its perform ance characteristics determined by the [facility], ??Special Chemistry Laboratory. It has [...] Phon e Number [facility] [address] documented in this encounter Visit Diagnoses Not on filedocumented in this encounter Care Teams Distribution Spec Relationship Specialty Start Date End Date Momo Forbes PCP - General Family Practice 01/02/14 [facility] [address] [place] [phone] documented as of this encounter
--- OUTSIDE RECORDS SUMMARY | 2022-07-29 12:59 | XMS_ITS | Encounter Summary ---
:1950 Author Organization [place] Address [address] [place] [address] Care Team Providers Name Role Phone Ingrid Santana RN Unavailable Unavailable Momo Forbes Primary Care Provider Reason for Visit Reason Onset Date Comments Refill Request 09/06/2014 [facility] Encounter Details Date Type Department Care Team Description 09/06/2014 Refill The Transplant Deysi Burns, Refill Request ([facility] 2nd Floor, Clinic 2A MD Plus) Tommy Wilburn [phone] [place] [address] [place] [address] Social History Tobacco Use Types [...] Date: 02/08/14 Quantity: 100 Michael Manuel [facility] [phone] TRIMMER documented in this encounter Plan of Treatment Not on filedocumented as of this encounter Visit Diagnoses Diagnosis S/P kidney transplant - Primary Kidney replaced by transplant documented in this encounter Care Teams Cotton Converter Relationship Specialty Start Date End Date Momo Forbes PCP - General Family Practice 01/02/14 [place] [phone] Ingrid Santana, RN Registered Nurse Transplant 02/10/12 documented as of this encounter
--- OUTSIDE RECORDS SUMMARY | 2022-07-29 12:59 | XMS_ITS | Encounter Summary ---
:1950 Author Organization [place] Address [address] [place] [address]. [place] [address] Care Team Providers Name Role Phone Momo Forbes Primary Care Provider Reason for Visit Reason Onset Date Comments Transplant 02/06/2016 refill Encounter Details Date Type Department Care Team Description 02/06/2016 Refill [facility] Cristy Chen LPN T ransplant (refill) Transplant Clinic [address] [place] [address] [phone] Social History Tobacco Use Types Packs/Day [...] documented in this encounter Care Teams Box Spring Maker Relationship Specialty Start Date End Date Momo Forbes PCP - General Family Practice 01/02/14 [facility] [address] [place] [address] documented as of this encounter
--- OUTSIDE RECORDS SUMMARY | 2022-07-29 12:59 | XMS_ITS | Encounter Summary ---
:1950 Author Organization [place] Address [address] [place] [address] Care Team Providers Name Role Phone Ingrid Santana RN Unavailable Unavailable Momo Forbes Primary Care Provider Joseph Quintana MD Unavailable Encounter Details Date Type Department Care Team Description 11/07/2014 External Order Results The Transplant Ce nter Nurse, [facility] 2nd Floor, Clinic 2A [address] [address] Social History Tobacco Use Types [...] Estimated >60 >60 LABDE SCAN (if ml/min/1.7 Malaysian) 3m2 (External) GFR Estimated 51 (L) >60 [...] on filedocumented in this encounter Care Teams Precise Winder Relationship Specialty Start Date End Date Momo Forbes PCP - General Family Practice 01/02/14 [place] [address] Ingrid Santana, RN Registered Nurse Transplant 02/10/12 Joseph Quintana, Assigned Nephrology 03/29/21 MD Provider [address] [place] [phone] documented as of this encounter
--- OUTSIDE RECORDS SUMMARY | 2022-07-29 12:59 | XMS_ITS | Encounter Summary ---
:1950 Author Organization [place] Address [facility] [place] [address] Care Team Providers Name Role Phone Ingrid Santana RN Unavailable Unavailable Momo Forbes Primary Care Provider Reason for Visit Reason Onset Date Comments Transplant 12/31/2014 Encounter Details Date Type Department Care Team Description 12/31/2014 Telephone [facility] Transplant Ankita Ordoñez Transplant Clinic [address] [place] [phone] Social History Tobacco Use Types [...] on filedocumented in this encounter Care Teams Packaging Clerk Relationship Specialty Start Date End Date Momo Forbes PCP - General Family Practice 01/02/14 [facility] [address] [place] [address] Ingrid Santana RN Registered Nurse Transplant 02/10/12 documented as of this encounter
--- OUTSIDE RECORDS SUMMARY | 2022-07-29 12:59 | XMS_ITS | Encounter Summary ---
:1950 Author Organization [place] Address [facility] [place] [address] Care Team Providers Name Role Phone Ingrid Santana RN Unavailable Unavailable Momo Forbes Primary Care Provider Encounter Details Date Type Department Care Team Description 10/18/2014 External Order Results The Transplant Ce nter Nurse, [facility] 2nd Floor, Clinic 2A [address] [phone] Social History Tobacco Use [...] 8:15 AM Results f or this RESULTS LEAD CARGO MOVER procedure are i n the results section. documented in this encounter Results (ABNORMAL) TXP External Lab Result (10/17/2014 8:15 AM LEAD CARGO MOVER) Analysis Performed At Patho logist Time Signature [...] 56 (L) >60 LABDE SCAN (if ml/min/1.7 Iraqi) 3m2 (External) GFR Estimated 46 (L) >60 [...] / / Volume Laterality 10/17/2014 8:15 AM LEAD CARGO MOVER Narrative JESSICA PFT - 10/18/2014 8:50 AM LEAD CARGO MOVER Verified by Maribel Plunkett on 10/18/19 15. Patient Reported LABORATORY Performing Organization Address City/State/ZIP Code Phon e Number [facility] LABDE SCAN documented in this encounter Visit Diagnoses Not on filedocumented in this encounter Care Teams Medical Physicist Relationship Specialty Start Date End Date Momo Forbes PCP - General Family Practice 01/02/14 [facility] 1999 [place] [address] Ingrid Santana, RN Registered Nurse Transplant 02/10/12 documented as of this encounter
--- OUTSIDE RECORDS SUMMARY | 2022-07-29 12:59 | XMS_ITS | Encounter Summary ---
:1950 Author Organization [place] Address [address] [place] [address] Care Team Providers Name Role Phone Ingrid Santana RN Unavailable Unavailable Momo Forbes Primary Care Provider Joseph Quintana MD Unavailable Encounter Details Date Type Department Care Team Description 02/03/2015 External Order Results The Transplant Ce nter Nurse, [facility] 2nd Floor, Clinic 2A [address] [phone] Social History Tobacco Use [...] External Lab Result (01/28/2015 8:56 AM CDT) [facility] Method Time Signature Sodium (External) 140 [...] General Family Practice 01/02/14 [facility] 2000 [place] [address] Ingrid Santana, RN Registered Nurse Transplant 02/10/12 Joseph Quintana, Assigned Nephrology 03/29/21 MD Provider [address] [place] [address] 1932 [place] [address] documented as of this encounter
--- OUTSIDE RECORDS SUMMARY | 2022-07-29 12:59 | XMS_ITS | Encounter Summary ---
:1950 Author Organization [place] Address [address] [place] [address] Care Team Providers Name Role Phone Ingrid Santana RN Unavailable Unavailable Momo Forbes Primary Care Provider Encounter Details Date Type Department Care Team Description 08/22/2014 Orders Only [facility], Joseph Conor [facility] jm [place] 500 [facility] [address] [place] [address] [phone] [place] [address] 931 [place] [address] (Wo rk) Social History Tobacco [...] Res ults for this MASS SPECTROMETRY AM UX INTERACTION DESIGNER procedure are in the results section. documented in this encounter Results Tacrolimus level (08/26/2014 10:21 AM UX INTERACTION DESIGNER) [facility] Method Time Signature Tacrolimus Last 08/25/14 [facility] Dose 2030 [facility] Tacrolimus 6.6 5.0 - [facility] Level 15.0 ug/L [facility] Comment: Tacrolimus Reference Range Kidney [...] its perform ance characteristics determined by the [facility], ??Special Chemistry Laboratory. It has not been cleared or approved by the FDA . The laboratory is regulated under CLIA as qualified to perform high-complexity testing. This test is used for clinical purposes. It should not be regarded as investigational or for research. Specimen Anatomical Collection Method Collection Time Receive d Time (Source) Location / / Volume Laterality 08/26/2014 10:21 08/28/2014 AM UX INTERACTION DESIGNER 11:34 AM UX INTERACTION DESIGNER Mingo Dangelo MD LAB - BLOOD ORDERABLES Performing Organization Address City/State/ZIP Code Phon e Number [facility] [address] documented in this encounter Visit Diagnoses Not on filedocumented in this encounter Care Teams Safety Equipment Testing Specialist Relationship Specialty Start Date End Date Momo Forbes PCP - General Family Practice 01/02/14 [facility] [address] [place] [address] Ingrid Santana, RN Registered Nurse Transplant 02/10/12 documented as of this encounter
--- OUTSIDE RECORDS SUMMARY | 2022-07-29 12:59 | XMS_ITS | Encounter Summary ---
:1950 Author Organization [place] Address [facility] [place] [address] Care Team Providers Name Role Phone Ingrid Santana RN Unavailable Unavailable Momo Forbes Primary Care Provider Encounter Details Date Type Department Care Team Description 12/27/2014 External Order Results The Transplant Ce nter Nurse, [facility] 2nd Floor, Clinic [address] [phone] Social History Tobacco Use Types [...] External Lab Result (12/25/2014 9:48 AM CDT) [facility] Method Time Signature Sodium 138 [...] 51 (L) >60 LABDE SCAN (if ml/min/1. Mongolian) 73m2 (External) GFR Estimated 42 (L) >60 [...] on filedocumented in this encounter Care Teams Audio Visual Collections Coordinator Relationship Specialty Start Date End Date Momo Forbes PCP - General Family Practice 01/02/14 [facility] [address] [place] [address] Ingrid Santana, RN Registered Nurse Transplant 02/10/12 documented as of this encounter
--- OUTSIDE RECORDS SUMMARY | 2022-07-29 12:59 | XMS_ITS | Encounter Summary ---
:1950 Author Organization [place] Address [address] [place] [address]. [place] [address] Care Team Providers Name Role Phone Momo Forbes Primary Care Provider Reason for Visit Reason Onset Date Comments Transplant 03/15/2016 refill Encounter Details Date Type Department Care Team Description 03/15/2016 Refill [facility] Cristy Chen LPN T ransplant (refill) Transplant Clinic [address] [place] [address] [phone] Social History Tobacco Use Types Packs/Day [...] transplant documented in this encounter Care Teams Welfare Manager Relationship Specialty Start Date End Date Momo Forbes PCP - General Family Practice 01/02/14 [facility] [address] [place] [address] documented as of this encounter
--- OUTSIDE RECORDS SUMMARY | 2022-07-29 12:59 | XMS_ITS | Encounter Summary ---
:1950 Author Organization [place] Address [address] [place] [address] Care Team Providers Name Role Phone Ingrid Santana RN Unavailable Unavailable Momo Forbes Primary Care Provider Reason for Visit Reason Onset Date Comments Medication Question 10/11/2014 Encounter Details Date Type Department Care Team Description 10/11/2014 Telephone PHARMACY Beny Staton Geovanni Medication Question 500 [facility] [address] PHARMACY [phone] [place] [address] Social History Tobacco Use Types [...] is 8 months post-transplant. Medication adherence plan: [place] pillbox Are you having any issues managing [...] activity before he checks it. Beny Staton [facility] Specialty Pharmacist [phone] CREDIT COLLECTOR documented in this encounter Plan of Treatment Not on filedocumented as of this encounter Visit Diagnoses Not on filedocumented in this encounter Care Teams Bindery Library Technical Assistant Relationship Specialty Start Date End Date Momo Forbes PCP - General Family Practice 01/02/14 [place] [phone] Ingrid Santana, RN Registered Nurse Transplant 02/10/12 documented as of this encounter
--- OUTSIDE RECORDS SUMMARY | 2022-07-29 12:59 | XMS_ITS | Encounter Summary ---
:1950 Author Organization [place] Address [address] [place] [address]. [place] [address] Care Team Providers Name Role Phone Ingrid Santana RN Unavailable Unavailable Momo Forbes Primary Care Provider Encounter Details Date Type Department Care Team Description 08/29/2015 Orders Only The Transplant Deepa Morgan Aftercare following organ tr ansplant (Primary Dx); 2nd Floor, Clinic 2A Saima Kidney replaced by transplan t; [facility] current use of medication [address] [phone] Social History Tobacco Use Types Packs/Day Years [...] edication documented in this encounter Care Teams Triage Technician Relationship Specialty Start Date End Date Momo Forbes PCP - General Family Practice 01/02/14 [facility] [address] [place] [address] Ingrid Santana RN Registered Nurse Transplant 02/10/12 documented as of this encounter
--- OUTSIDE RECORDS SUMMARY | 2022-07-29 12:59 | XMS_ITS | Encounter Summary ---
:1950 Author Organization [place] Address [address] [place] [address] Care Team Providers Name Role Phone Ingrid Santana RN Unavailable Unavailable Momo Forbes Primary Care Provider Reason for Visit Reason Onset Date Comments Transplant 08/08/2014 immunosuppression ma neil Encounter Details Date Type Department Care Team Description 08/08/2014 Refill Nephrology Shiva Kahn, nutrition representative 2nd Floor, Clinic 2A [facility] (immunosuppression Sanders Wangensteen [address] [place] [address] management) Building [address] [place] [phone] [phone] Social History Tobacco Use Types Packs/Day Years [...] to lower Prograf dose to 1.5mg BID. MATIC TIRE TESTER Telephone Encounter - Shiva Kahn RN - 08/08/2014 5:33 PM CST ISSUE: Tacrolimus level 9.0. New target tacrolimus levels 6-8 since patient is now 6 months post kidney transplant. PLAN: Decrease Prograf dose from 2 mg twice daily to 1.5 mg twice daily. TASK: Please call patient with instructions for dose change. 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
--- OUTSIDE RECORDS SUMMARY | 2022-07-29 12:59 | XMS_ITS | Encounter Summary ---
:1950 Author Organization [place] Address [facility] [place] [address] Care Team Providers Name Role Phone Ingrid Santana RN Unavailable Unavailable Momo Forbes Primary Care Provider Reason for Visit Reason Onset Date Comments Refill Request 04/21/2015 crestor Encounter Details Date Type Department Care Team Description 04/21/2015 Refill [facility] [address] Refill Request Physicians Orestes Hernandez MD (crestor) [facility] Building [place] 4th Floor, Clinic 4B [address] [place] [phone] [place] [address] (Wo rk) [phone] [phone] Social History Tobacco Use Types Packs/Day Years [...] refills: 11 Last Office Visit with [facility] primary care provider: 05/14/14 CHOL 126 02/06/2014 HDL 35 02/06/2014 LDL 71 02/06/2014 TRIG 100 02/06/2014 CHOLHDLRATIO 3.6 02/06/2014 Gayathri Orta [facility] [address] [facility] [address] documented in this encounter Plan of Treatment Not on filedocumented as of this encounter Visit Diagnoses Diagnosis DM (diabetes mellitus), type 2 (H) - Ana ashley Type II or unspecified type diabetes aung litus without mention of complication, not stated as uncontrolled Other and unspecified hyperlipidemia documented in this encounter Care Teams Agent Based Modeler Relationship Specialty Start Date End Date Momo Forbes PCP - General Family Practice 01/02/[address] [address] Ingrid Santana, RN Registered Nurse Transplant 02/10/12 documented as of this encounter
--- OUTSIDE RECORDS SUMMARY | 2022-07-29 12:59 | XMS_ITS | Encounter Summary ---
:1950 Author Organization [place] Address [address] [place] [address] Care Team Providers Name Role Phone Ingrid Santana RN Unavailable Unavailable Momo Forbes Primary Care Provider Joseph Quintana MD Unavailable Encounter Details Date Type Department Care Team Description 08/28/2014 External Order Results The Transplant Ce nter Nurse, [facility] 2nd Floor, Clinic [address]A [address] [place] [address] Social History Tobacco Use Types [...] 08/26/2014 10:25 AM Results for this RESULTS CATASTROPHE CLAIMS SUPERVISOR procedure are i n the results section. documented in this encounter Results (ABNORMAL) TXP External Lab Result (08/26/2014 10:25 AM CATASTROPHE CLAIMS SUPERVISOR) Analysis Performed At Patho logist Time [...] / / Volume Laterality 08/26/2014 10:25 AM CATASTROPHE CLAIMS SUPERVISOR Narrative [facility] - 08/28/2014 4:34 PM CATASTROPHE CLAIMS SUPERVISOR Verified by Freddy Mehta on 08/28. Patient Reported LABORATORY Performing Organization Address City/State/ZIP Code Phon e Number [facility] documented in this encounter Visit Diagnoses Not on filedocumented in this encounter Care Teams Supervisor Contact And Service Clerks Relationship Specialty Start Date End Date Momo Forbes PCP - General Family Practice 01/02/14 [facility] [address] [place] [address] Ingrid Santana, RN Registered Nurse Transplant 02/10/12 Joseph Quintana, Assigned Nephrology 03/29/21 MD Provider 717 [facility] 353 [facility] 1932 [place] [address] documented as of this encounter
--- OUTSIDE RECORDS SUMMARY | 2022-07-29 12:59 | XMS_ITS | Encounter Summary ---
:1950 Author Organization [place] Address [facility] [place] [address] Care Team Providers Name Role Phone Ingrid Santana RN Unavailable Unavailable Momo Forbes Primary Care Provider Reason for Visit Reason Onset Date Comments Refill Request 06/23/2015 amlodipine Encounter Details Date Type Department Care Team Description 06/23/2015 Refill [facility] [address] Refill Request Physicians Orestes Hernandez MD (amlodipine) [facility] Building [place] 4th Floor, Clinic 4B [address] [phone] (Wo rk) [address] [phone] Social History Tobacco Use Types Packs/Day Years [...] 05/13/14 139/73 04/09/14 163/78 Ada You Cpht [facility] [phone] EE URN ATTENDANT documented in this encounter Plan of Treatment Not on filedocumented as of this encounter Visit Diagnoses Diagnosis HTN (hypertension) - Primary Unspecified essential hypertension documented in this encounter Care Teams Bobbin Presser Relationship Specialty Start Date End Date Momo Forbes PCP - General Family Practice 01/02/[address] [address] Ingrid Santana, RN Registered Nurse Transplant 02/10/12 documented as of this encounter
--- OUTSIDE RECORDS SUMMARY | 2022-07-29 12:59 | XMS_ITS | Encounter Summary ---
:1950 Author Organization [place] Address [address] [place] [address] Care Team Providers Name Role Phone Ingrid Santana RN Unavailable Unavailable Momo Forbes Primary Care Provider Encounter Details Date Type Department Care Team Description 12/20/2014 Orders Only [facility], [facility] jm [place] [address] [phone] [place] [address] 486 [place] [address] (Wo rk) Social History Tobacco [...] Results Tacrolimus level (12/25/2014 9:45 AM CDT) [facility] Method Time Signature Tacrolimus Last 12/24/14 [facility] Dose 2130 [facility] Tacrolimus 9.5 5.0 - [facility] Level 15.0 ug/L [facility] Comment: Tacrolimus Reference Range Kidney [...] ance characteristics determined by the [facility], [...] Phon e Number [facility] [address] documented in this encounter Visit Diagnoses Not on filedocumented in this encounter Care Teams Roller Leveler Relationship Specialty Start Date End Date Momo Forbes PCP - General Family Practice 01/02/14 [place] [phone] Ingrid Santana, RN Registered Nurse Transplant 02/10/12 documented as of this encounter
--- OUTSIDE RECORDS SUMMARY | 2022-07-29 12:59 | XMS_ITS | Encounter Summary ---
:1950 Author Organization [place] Address [facility] [place] [address] Care Team Providers Name Role Phone Ingrid Santana RN Unavailable Unavailable Momo Forbes Primary Care Provider Reason for Visit Reason Onset Date Comments Patient Reminder 08/28/2015 Encounter Details Date Type Department Care Team Description 08/28/2015 Telephone Nephrology Yesenia Clements LPN Patient Reminder 2nd Floor, Clinic 2A [place] [phone] Social History Tobacco Use Types Packs/Day [...] and understood. Yesenia Clements CMA ING MACHINE SETUP OPERATOR documented in this encounter Plan of Treatment Not on filedocumented as of this encounter Visit Diagnoses Not on filedocumented in this encounter Care Teams Office Rep Relationship Specialty Start Date End Date Momo Forbes PCP - General Family Practice 01/02/14 [facility] [address] [place] [address] Ingrid Santana, RN Registered Nurse Transplant 02/10/12 documented as of this encounter
--- OUTSIDE RECORDS SUMMARY | 2022-07-29 12:59 | XMS_ITS | Encounter Summary ---
:1950 Author Organization [place] Address [address] [place] [address] Care Team Providers Name Role Phone Ingrid Santana RN Unavailable Unavailable Momo Forbes Primary Care Provider Encounter Details Date Type Department Care Team Description 09/22/2014 Orders Only [facility], [facility] jm [place] [address] [phone] [place] [address] 496 [place] [address] (Wo rk) Social History Tobacco [...] AM R esults for this MASS SPECTROMETRY CONCRETE JOURNEYMAN procedure are in the results section. TACROLIMUS BY TANDEM Routine 10/03/2014 8:30 AM R esults for this MASS SPECTROMETRY CONCRETE JOURNEYMAN procedure are in the results section. documented in this encounter Results Tacrolimus level (10/17/2014 8:15 AM CONCRETE JOURNEYMAN) [facility] Method Time Signature Tacrolimus Last 2029 [facility] Dose 10/16/14 [facility] Tacrolimus 9.2 5.0 - [facility] Level 15.0 ug/L [facility] Comment: Tacrolimus Reference Range Kidney Transplant Pediatric [...] / Volume Laterality 10/17/2014 8:15 AM 5 CONCRETE JOURNEYMAN 11:17 AM CONCRETE JOURNEYMAN Mingo Dangelo MD LAB - BLOOD ORDERABLES Performing Organization Address City/State/ZIP Code Phon e Number [facility] 500 [place], [place] [phone] [place] [address] Tacrolimus level (10/03/2014 8:30 AM CONCRETE JOURNEYMAN) [facility] Method Time Signature Tacrolimus Last 10/02/14 [facility] Dose 2030 [facility] Tacrolimus 7.4 5.0 - [facility] 15.0 ug/L [facility] Comment: Tacrolimus Reference Range Kidney Transplant Pediatric [...] / Volume Laterality 10/03/2014 8:30 AM 5 CONCRETE JOURNEYMAN 11:09 AM CONCRETE JOURNEYMAN Mingo Dangelo MD LAB - BLOOD ORDERABLES Performing Organization Address City/State/ZIP Code Phon e Number [facility] 500 [place], [place] [phone] [place] [address] documented in this encounter Visit Diagnoses Not on filedocumented in this encounter Care Teams Operations Officer Relationship Specialty Start Date End Date Momo Forbes PCP - General Family Practice 01/02/14 [facility] [address] [place] [address] Ingrid Santana, RN Registered Nurse Transplant 02/10/12 documented as of this encounter
--- OUTSIDE RECORDS SUMMARY | 2022-07-29 13:00 | XMS_ITS | Encounter Summary ---
:1950 Author Organization [place] Address [address] [place] [address] Care Team Providers Name Role Phone Ingrid Santana RN Unavailable Unavailable Momo Forbes Primary Care Provider Reason for Visit Reason Onset Date Comments Medication Question 07/26/2014 Encounter Details Date Type Department Care Team Description 07/26/2014 Telephone PHARMACY Duncan, Fina, RPH Medication Question 500 [facility] [place] [address] 713 [facility] [phone] [place] [address] Social History Tobacco Use Types [...] [facility] [place] [facility] Specialty Pharmacist [phone] N SAW DRIVER documented in this encounter Plan of Treatment Not on filedocumented as of this encounter Visit Diagnoses Not on filedocumented in this encounter Care Teams Self Sealing Fuel Tank Builder Relationship Specialty Start Date End Date Momo Forbes PCP - General Family Practice 01/02/14 [facility] [address] [place] [address] Ingrid Santana, RN Registered Nurse Transplant 02/10/12 documented as of this encounter
--- OUTSIDE RECORDS SUMMARY | 2022-07-29 13:00 | XMS_ITS | Encounter Summary ---
:1950 Author Organization [place] Address [facility] hospital0 [facility] [place] [address] Care Team Providers Name Role Phone Ingrid Santana RN Unavailable Unavailable Momo Forbes Primary Care Provider Encounter Details Date Type Department Care Team Description 08/03/2014 Abstract The Transplant [facility] 2nd Floor, Clinic [address]A [address] [phone] Social History Tobacco Use [...] on filedocumented in this encounter Care Teams Corrugated Fastener Driver Relationship Specialty Start Date End Date Momo Forbes PCP - General Family Practice 01/02/14 [facility] [address] [place] [address] Ingrid Santana, RN Registered Nurse Transplant 02/10/12 documented as of this encounter
--- OUTSIDE RECORDS SUMMARY | 2022-07-29 13:00 | XMS_ITS | Encounter Summary ---
:1950 Author Organization [place] Address [address] [place] [address] Care Team Providers Name Role Phone Ingrid Santana RN Unavailable Unavailable Momo Forbes Primary Care Provider Encounter Details Date Type Department Care Team Description 07/22/2014 Orders Only [facility], Joseph [facility], [facility] 500 [facility] [address] [place] [phone] [place] [address] 079 [place] [address] (Wo rk) Social History [...] AM Resul ts for this SINGLE ANTIGEN IDENTITY MANAGEMENT CONSULTANT procedure are in the results section. HLA LUKASZ CLASS I Routine 07/29/2014 8:20 AM Result s for this SINGLE ANTIGEN IDENTITY MANAGEMENT CONSULTANT procedure are in the results section. TACROLIMUS BY TANDEM Routine 07/29/2014 8:20 AM R esults for this MASS SPECTROMETRY IDENTITY MANAGEMENT CONSULTANT procedure are in the results section. TACROLIMUS BY TANDEM Routine 07/22/2014 8:20 AM R esults for this MASS SPECTROMETRY IDENTITY MANAGEMENT CONSULTANT procedure are in the results section. documented in this encounter Results HLA Lukasz Class II Single Antigen (07/29/2014 8:20 AM IDENTITY MANAGEMENT CONSULTANT) [facility] Method Time Signature SA2 Test SA HI [...] Volume Laterality 07/29/2014 8:20 AM 4 3:26 IDENTITY MANAGEMENT CONSULTANT PM IDENTITY MANAGEMENT CONSULTANT Deysi Alicea MD LAB - IMMUNOLOGY ORDERABLES Performing Organization Address [facility] Phon e Number U HLA LABORATORY Immunology/Histocompatabil [place], [place] [address] [facility] 500 [facility], Room 3-580 HISTOTRAC HLA Ulkasz Class I Single Antigen (07/29/2014 8:20 AM IDENTITY MANAGEMENT CONSULTANT) [facility] Method Time Signature SA1 Test SA HI [...] Volume Laterality 07/29/2014 8:20 AM 4 3:26 IDENTITY MANAGEMENT CONSULTANT PM IDENTITY MANAGEMENT CONSULTANT Deysi Alicea MD LAB - IMMUNOLOGY ORDERABLES Performing Organization Address [facility] Phon e Number [facility] Immunology/Histocompatabil [place], [place] [address] [facility] [address] [facility] [address] Building, Room 3-580 HISTOTRAC Tacrolimus level (07/29/2014 8:20 AM IDENTITY MANAGEMENT CONSULTANT) [facility] gist Method Time Signature Tacrolimus Last 1999 [facility] Dose 07/28/14 [facility] Tacrolimus 10.5 5.0 - [facility] Level 15.0 ug/L [facility] [...] / Volume Laterality 07/29/2014 8:20 AM 4 IDENTITY MANAGEMENT CONSULTANT 11:17 AM IDENTITY MANAGEMENT CONSULTANT Deysi Alicea MD LAB - BLOOD ORDERABLES Performing Organization Address City/State/ZIP Code Phon e Number [facility] 500 [place] [address] [facility] Tacrolimus level (07/22/2014 8:20 AM IDENTITY MANAGEMENT CONSULTANT) [facility] gist Method Time Signature Tacrolimus Last 1929 [facility] Dose 07/21/14 [facility] Tacrolimus 10.8 5.0 - [facility] Level 15.0 ug/L [facility] [...] / Volume Laterality 07/22/2014 8:20 AM 4 IDENTITY MANAGEMENT CONSULTANT 11:45 AM IDENTITY MANAGEMENT CONSULTANT Deysi Alicea MD LAB - BLOOD ORDERABLES Performing Organization Address City/State/ZIP Code Phon e Number [facility] 500 [place] [address] [facility] documented in this encounter Visit Diagnoses Not on filedocumented in this encounter Care Teams Vest Maker Relationship Specialty Start Date End Date Momo Forbes PCP - General Family Practice 01/02/14 [facility] [address] [place] [address] Ingrid Santana, RN Registered Nurse Transplant 02/10/12 documented as of this encounter
--- OUTSIDE RECORDS SUMMARY | 2022-07-29 13:00 | XMS_ITS | Encounter Summary ---
:1950 Author Organization [place] Address [address] [place] [address] Care Team Providers Name Role Phone Ingrid Santana RN Unavailable Unavailable Momo Forbes Primary Care Provider Joseph Qunitana MD Unavailable Encounter Details Date Type Department Care Team Description 07/25/2014 External Order Results The Transplant Ce nter Nurse, [facility] 2nd Floor, Clinic 2A [address] [place] [address] Social History Tobacco Use Types [...] 8:22 AM Results f or this RESULTS RUBBER BOOTS AND SHOES REPAIRER procedure are i n the results section. documented in this encounter Results (ABNORMAL) TXP External Lab Result (07/22/2014 8:22 AM RUBBER BOOTS AND SHOES REPAIRER) Analysis Performed At Patho logist Time Signature [...] 52 (L) >60 LABDE SCAN (if ml/min/1.7 Canadian) 3m2 (External) GFR Estimated 43 (L) >60 [...] / / Volume Laterality 07/22/2014 8:22 AM RUBBER BOOTS AND SHOES REPAIRER Narrative JESSICA PFT - 07/25/2014 6:19 AM RUBBER BOOTS AND SHOES REPAIRER Verified by Janee Alexis on 07/25/2014 . Patient Reported LABORATORY Performing Organization Address City/State/ZIP Code Phon e Number [facility] LABDE SCAN documented in this encounter Visit Diagnoses Not on filedocumented in this encounter Care Teams Guitar Player Relationship Specialty Start Date End Date Momo Forbes PCP - General Family Practice 01/02/14 [facility] [address] [place] [phone] Ingrid Santana, RN Registered Nurse Transplant 02/10/12 Joseph Quintana, Assigned Nephrology 03/29/21 MD Provider [address] [place] [address] documented as of this encounter
--- OUTSIDE RECORDS SUMMARY | 2022-07-29 13:00 | XMS_ITS | Encounter Summary ---
:1950 Author Organization [place] Address [address] [place] [address] Care Team Providers Name Role Phone Ingrid Santana RN Unavailable Unavailable Momo Forbes Primary Care Provider Joseph Quintana MD Unavailable Encounter Details Date Type Department Care Team Description 08/06/2014 External Order Results The Transplant Ce nter Nurse, [facility] 2nd Floor, Clinic [address]A [address] [place] [address] Social History Tobacco Use Types [...] 8:39 AM Results f or this RESULTS INSTRUMENT LENS GRINDER APPRENTICE procedure are i n the results section. documented in this encounter Results (ABNORMAL) TXP External Lab Result (08/05/2014 8:39 AM INSTRUMENT LENS GRINDER APPRENTICE) Analysis Performed At Patho logist Time [...] 55 (L) >60 LABDE SCAN (if ml/min/1.7 Burmese) 3m2 (External) GFR Estimated 45 (L) >60 [...] / / Volume Laterality 08/05/2014 8:39 AM INSTRUMENT LENS GRINDER APPRENTICE Narrative JESSICA PFT - 08/06/2014 7:40 AM INSTRUMENT LENS GRINDER APPRENTICE Verified by Mary Whitehead on 08/06/2014. Patient Reported LABORATORY Performing Organization Address City/State/ZIP Code Phon e Number [facility] LABDE SCAN documented in this encounter Visit Diagnoses Not on filedocumented in this encounter Care Teams Manager Inventory Relationship Specialty Start Date End Date Momo Forbes PCP - General Family Practice 01/02/[address] [phone] Ingrid Santana, RN Registered Nurse Transplant 02/10/12 Joseph Quintana, Assigned Nephrology 03/29/21 MD Provider [address] [place] [address] documented as of this encounter
--- OUTSIDE RECORDS SUMMARY | 2022-07-29 13:00 | XMS_ITS | Encounter Summary ---
:1950 Author Organization [place] Address [address] [place] [address] Care Team Providers Name Role Phone Ingrid Santana RN Unavailable Unavailable Momo Forbes Primary Care Provider Joseph Quintana MD Unavailable Encounter Details Date Type Department Care Team Description 07/10/2014 External Order Results The Transplant Ce nter Nurse, [facility] 2nd Floor, Clinic 2A [address] [place] [address] Social History Tobacco Use Types [...] 8:17 AM Results f or this RESULTS DRY CLEANING MACHINE OPERATOR procedure are i n the results section. documented in this encounter Results (ABNORMAL) TXP External Lab Result (07/08/2014 8:17 AM DRY CLEANING MACHINE OPERATOR) Analysis Performed At Patho logist [...] (if ml/min/1.7 Kosovan) 3m2 (External) GFR Estimated 51 (L) >60 [...] / / Volume Laterality 07/08/2014 8:17 AM DRY CLEANING MACHINE OPERATOR Narrative JESSICA PFT - 07/10/2014 6:20 AM DRY CLEANING MACHINE OPERATOR Verified by Janee Aleixs on 07/10/2014 . Patient Reported LABORATORY Performing Organization Address City/State/ZIP Code Phon e Number [facility] LABDE SCAN documented in this encounter Visit Diagnoses Not on filedocumented in this encounter Care Teams Braiding Operator Relationship Specialty Start Date End Date Momo Forbes PCP - General Family Practice 01/02/[address] [address] Ingrid Santana, RN Registered Nurse Transplant 02/10/12 Joseph Quintana, Assigned Nephrology 03/29/21 MD Provider [address] [place] [address] documented as of this encounter
--- OUTSIDE RECORDS SUMMARY | 2022-07-29 13:00 | XMS_ITS | Encounter Summary ---
:1950 Author Organization [place] Address [address] [place] [address] Care Team Providers Name Role Phone Ingrid Santana RN Unavailable Unavailable Momo Forbes Primary Care Provider Joseph Quintana MD Unavailable Encounter Details Date Type Department Care Team Description 07/31/2014 External Order Results The Transplant Ce nter Nurse, [facility] 2nd Floor, Clinic [address]A [address] [address] Social History Tobacco Use [...] 8:25 AM Results f or this RESULTS REAL ESTATE ATTORNEY procedure are i n the results section. documented in this encounter Results (ABNORMAL) TXP External Lab Result (07/29/2014 8:25 AM REAL ESTATE ATTORNEY) [facility] Method Time Signature Sodium (External) [...] / / Volume Laterality 07/29/2014 8:25 AM REAL ESTATE ATTORNEY Narrative BREEZE PFT - 07/31/2014 2:47 PM REAL ESTATE ATTORNEY Verified by Nazia Duncan on 07/31/2014. Verified by Freddy Mehta on 07/31. Patient Reported LABORATORY Performing Organization Address City/State/ZIP Code Phon e Number [facility] LABDE SCAN documented in this encounter Visit Diagnoses Not on filedocumented in this encounter Care Teams Line Tender Flakeboard Relationship Specialty Start Date End Date Momo Forbes PCP - General Family Practice 01/02/14 [facility] [address] [place] [address] Ingrid Santana, RN Registered Nurse Transplant 02/10/12 Joseph Quintana, Assigned Nephrology 03/29/21 MD Provider [address] [place] [address] [address] [place], [place] [phone] documented as of this encounter
--- OUTSIDE RECORDS SUMMARY | 2022-07-29 13:00 | XMS_ITS | Encounter Summary ---
:1950 Author Organization [place] Address [address] [place] [address] Care Team Providers Name Role Phone Ingrid Santana RN Unavailable Unavailable Momo Forbes Primary Care Provider Encounter Details Date Type Department Care Team Description 06/22/2014 Orders Only [facility], Joseph Conor [facility] [place] [address] [phone] [place] [address] 895 [place] [address] (Wo rk) Social History Tobacco [...] AM R esults for this MASS SPECTROMETRY WATER ENGINEER procedure are in the results section. TACROLIMUS BY TANDEM Routine 07/08/2014 8:15 AM R esults for this MASS SPECTROMETRY WATER ENGINEER procedure are in the results section. TACROLIMUS BY TANDEM Routine 07/01/2014 8:25 AM R esults for this MASS SPECTROMETRY WATER ENGINEER procedure are in the results section. TACROLIMUS BY TANDEM Routine 06/24/2014 8:30 AM R esults for this MASS SPECTROMETRY WATER ENGINEER procedure are in the results section. documented in this encounter Results Tacrolimus level (07/15/2014 8:25 AM WATER ENGINEER) [facility] gist Method Time Signature Tacrolimus Last 07/14/14 [facility] Dose 2000 [facility] Tacrolimus 8.1 5.0 - [facility] Level 15.0 ug/L [facility] [...] / Volume Laterality 07/15/2014 8:25 AM 4 WATER ENGINEER 10:56 AM WATER ENGINEER Deysi Alicea MD LAB - BLOOD ORDERABLES Performing Organization Address City/State/ZIP Code Phon e Number [facility] [address] [place] [address] [facility] Tacrolimus level (07/08/2014 8:15 AM WATER ENGINEER) [facility] gist Method Time Signature Tacrolimus Last 2000 [facility] Dose 07/07/14 [facility] Tacrolimus 8.6 5.0 - [facility] Level 15.0 ug/L [place] [...] / Volume Laterality 07/08/2014 8:15 AM 4 WATER ENGINEER 11:03 AM WATER ENGINEER Deysi Alicea MD LAB - BLOOD ORDERABLES Performing Organization Address City/State/ZIP Code Phon e Number [facility] [address] [place] [address] [facility] Tacrolimus level (07/01/2014 8:25 AM WATER ENGINEER) [facility] gist Method Time Signature Tacrolimus Last 1999, [facility] Dose 06/30/14 [facility] Tacrolimus 9.3 5.0 - [facility] Level 15.0 ug/L [facility] Comment: Tacrolimus Reference Range Kidney Transplant [...] / Volume Laterality 07/01/2014 8:25 AM 4 WATER ENGINEER 12:11 PM WATER ENGINEER Mingo Dangelo MD LAB - BLOOD ORDERABLES Performing Organization Address City/State/ZIP Code Phon e Number [facility] [address] [place] [address] [facility] Tacrolimus level (06/24/2014 8:30 AM WATER ENGINEER) [facility] gist Method Time Signature Tacrolimus Last 1999 [facility] Dose 06/23/14 [facility] Tacrolimus 10.5 5.0 - [facility] Level 15.0 ug/L [facility] [...] / Volume Laterality 06/24/2014 8:30 AM 4 WATER ENGINEER 11:18 AM WATER ENGINEER Deysi Alicea MD LAB - BLOOD ORDERABLES Performing Organization Address City/State/ZIP Code Phon e Number [facility] [address] [place] [address] [facility] documented in this encounter Visit Diagnoses Not on filedocumented in this encounter Care Teams Lye Bath Operator Relationship Specialty Start Date End Date Momo Forbes PCP - General Family Practice 01/02/14 [facility] [address] [place] [address] Ingrid Santana, RN Registered Nurse Transplant 02/10/12 documented as of this encounter
--- OUTSIDE RECORDS SUMMARY | 2022-07-29 13:00 | XMS_ITS | Encounter Summary ---
:1950 Author Organization [place] Address [address] [place] [address] Care Team Providers Name Role Phone Ingrid Santana RN Unavailable Unavailable Momo Forbes Primary Care Provider Joseph Quintana MD Unavailable Encounter Details Date Type Department Care Team Description 06/24/2014 External Order Results The Transplant Ce nter Nurse, [facility] 2nd Floor, Clinic [address]A [address] [place] [address] Social History Tobacco Use Types [...] 8:37 AM Results f or this RESULTS PLANNING ASSOCIATE procedure are i n the results section. documented in this encounter Results (ABNORMAL) TXP External Lab Result (06/24/2014 8:37 AM PLANNING ASSOCIATE) Analysis Performed At Patho logist Time Signature [...] 54 (L) >60 LABDE SCAN (if ml/min/1.7 Cook Islander) 3m2 (External) GFR Estimated 44 (L) >60 [...] / / Volume Laterality 06/24/2014 8:37 AM PLANNING ASSOCIATE Narrative JESSICA PFT - 06/24/2014 2:52 PM PLANNING ASSOCIATE Verified by Sofie Verdin on 4. Patient Reported LABORATORY Performing Organization Address City/State/ZIP Code Phon e Number [facility] LABDE SCAN documented in this encounter Visit Diagnoses Not on filedocumented in this encounter Care Teams Director Of Preclinical Research Relationship Specialty Start Date End Date Momo Forbes PCP - General Family Practice 01/02/14 [place] [phone] Ingrid Santana, RN Registered Nurse Transplant 02/10/12 Joseph Quintana, Assigned Nephrology 03/29/21 MD Provider [address] [place] [phone] documented as of this encounter
--- OUTSIDE RECORDS SUMMARY | 2022-07-29 13:00 | XMS_ITS | Encounter Summary ---
:1950 Author Organization [place] Address [address] [place] [address] Care Team Providers Name Role Phone Ingrid Santana RN Unavailable Unavailable Momo Forbes Primary Care Provider Joseph Quintana MD Unavailable Encounter Details Date Type Department Care Team Description 07/17/2014 External Order Results The Transplant Ce nter Nurse, [facility] 2nd Floor, Clinic 2A [address] [place] [address] Social History Tobacco Use Types [...] 8:28 AM Results f or this RESULTS FIELD HAND procedure are i n the results section. documented in this encounter Results (ABNORMAL) TXP External Lab Result (07/15/2014 8:28 AM FIELD HAND) Analysis Performed At Patho logist Time [...] 60 (L) >60 LABDE SCAN (if ml/min/1.7 Irish) 3m2 (External) GFR Estimated 49 (L) >60 [...] / / Volume Laterality 07/15/2014 8:28 AM FIELD HAND Narrative JESSICA PFT - 07/17/2014 8:35 AM FIELD HAND Verified by Maribel Plunkett on 07/17/20 14. Patient Reported LABORATORY Performing Organization Address City/State/ZIP Code Phon e Number [facility] LABDE SCAN documented in this encounter Visit Diagnoses Not on filedocumented in this encounter Care Teams Auto Body Technician Relationship Specialty Start Date End Date Momo Forbes PCP - General Family Practice 01/02/14 [place] [address] Ingrid Santana, RN Registered Nurse Transplant 02/10/12 Joseph Quintana, Assigned Nephrology 03/29/21 MD Provider [address] [place] [phone] documented as of this encounter
--- OUTSIDE RECORDS SUMMARY | 2022-07-29 13:00 | XMS_ITS | Encounter Summary ---
:1950 Author Organization [place] Address Count includes the [facility] [place] [address] Care Team Providers Name Role Phone Ingrid Santana RN Unavailable Unavailable Momo Forbes Primary Care Provider Reason for Visit Reason Onset Date Comments Transplant 06/20/2014 FK 6.6 Encounter Details Date Type Department Care Team Description 06/20/2014 Telephone Nephrology Carmelita Rosario, Transplant (FK 6.6) 2nd Floor, Clinic 2A [place] [phone] Social History Tobacco Use Types Packs/Day [...] transplant documented in this encounter Care Teams Repeat Chief Relationship Specialty Start Date End Date Momo Forbes PCP - General Family Practice 01/02/[address] [address] Ingrid Santana, RN Registered Nurse Transplant 02/10/12 documented as of this encounter
--- OUTSIDE RECORDS SUMMARY | 2022-07-29 13:00 | XMS_ITS | Encounter Summary ---
:1950 Author Organization [place] Address [address] [place] [address] Care Team Providers Name Role Phone Ingrid Santana RN Unavailable Unavailable Momo Forbes Primary Care Provider Joseph Quintana MD Unavailable Encounter Details Date Type Department Care Team Description 07/03/2014 External Order Results The Transplant Ce nter Nurse, [facility] 2nd Floor, Clinic 2A [address] [place] [address] Social History Tobacco Use Types [...] 8:27 AM Results f or this RESULTS ASSEMBLYMAN OR WOMAN procedure are i n the results section. documented in this encounter Results (ABNORMAL) TXP External Lab Result (07/01/2014 8:27 AM ASSEMBLYMAN OR WOMAN) Analysis Performed At Patho logist Time Signature [...] 57 (L) >60 LABDE SCAN (if ml/min/1.7 Chadian) 3m2 (External) GFR Estimated 47 (L) >60 [...] / / Volume Laterality 07/01/2014 8:27 AM ASSEMBLYMAN OR WOMAN Narrative JESSICA PFT - 07/03/2014 2:18 PM ASSEMBLYMAN OR WOMAN Verified by Xiomara Bello on 07/03/20 14. Patient Reported LABORATORY Performing Organization Address City/State/ZIP Code Phon e Number [facility] PFT LABDE SCAN documented in this encounter Visit Diagnoses Not on filedocumented in this encounter Care Teams Senior Recruiter Relationship Specialty Start Date End Date Momo Forbes PCP - General Family Practice 01/02/14 [place] [phone] Ingrid Santana, RN Registered Nurse Transplant 02/10/12 Joseph Quintana, Assigned Nephrology 03/29/21 MD Provider [address] [place] [phone] documented as of this encounter
--- OUTSIDE RECORDS SUMMARY | 2022-07-29 13:01 | XMS_ITS | Encounter Summary ---
:1950 Author Organization [place] Address [address] [facility] [place] [place] [address] Care Team Providers Name Role Phone Ingrid Santana RN Unavailable Unavailable Momo Forbes Primary Care Provider Reason for Visit Auth/Cert - Closed Specialty Diagnoses / Procedures Referred By Contact Refer red To Contact Surgery Diagnoses S/P Kidney Transplant Uu Periop Procedures COMBINED CYSTOSCOPY, REMOVE STENT(S) 500 [place] [address] Phone: Fax: Referral ID Status Reason Start Date Expiration Date Visits Requ ested Visits Authorized [id number] Closed 1 1 Encounter Details Date Type Department Care Team Description 04/01/2014 Anesthesia Event [facility] Clari Torres MD PeriOp Services [facility] ANESTHESIA [address] [place] [address] [place] [address] [place], [place] [phone] (Wo rk) Anesthesia Record Procedure Summary Procedure [...] benefits and alternatives discussed with: patient or personal banking representative. I agree with the plan written [...] Intra-op documented in this encounter Care Teams Platform Power Technician Relationship Specialty Start Date End Date Momo Forbes PCP - General Family Practice 01/02/14 [place] [phone] Ingrid Santana, RN Registered Nurse Transplant 02/10/12 documented as of this encounter
--- OUTSIDE RECORDS SUMMARY | 2022-07-29 13:01 | XMS_ITS | Encounter Summary ---
:1950 Author Organization [place] Address [facility] [address] Care Team Providers Name Role Phone Ingrid Santana RN Unavailable Unavailable Momo Forbes Primary Care Provider Encounter Details Date Type Department Care Team Description 05/02/2014 Orders Only Nephrology Shiva Kahn RN -donor kidney 2nd Floor, Clinic 2A [facility] transplant recipient Tommy Ruizfelisa [address] [place] [phone] Social History Tobacco Use Types Packs/Day Years [...] transplant documented in this encounter Care Teams Fabric Inspector Relationship Specialty Start Date End Date Momo Forbes PCP - General Family Practice 01/02/[address] [address] Ingrid Santana RN Registered Nurse Transplant 02/10/12 documented as of this encounter
--- OUTSIDE RECORDS SUMMARY | 2022-07-29 13:01 | XMS_ITS | Encounter Summary ---
:1950 Author Organization [place] Address [address] [place] [address]. [place] [address] Care Team Providers Name Role Phone Ingrid Santana RN Unavailable Unavailable Momo Forbes Primary Care Provider Reason for Visit Reason Onset Date Comments Patient Reminder 05/09/2014 Encounter Details Date Type Department Care Team Description 05/09/2014 Telephone Nephrology Yesenia Clements LPN Patient Reminder 2nd Floor, Clinic [address]A [address] [phone] Social History Tobacco [...] on filedocumented in this encounter Care Teams Rental Manager Relationship Specialty Start Date End Date Momo Forbes PCP - General Family Practice 01/02/14 [facility] [address] [place] [address] Ingrid Santana, RN Registered Nurse Transplant 02/10/12 documented as of this encounter
--- OUTSIDE RECORDS SUMMARY | 2022-07-29 13:01 | XMS_ITS | Encounter Summary ---
:1950 Author Organization [place] Address [address] [place] [address] Care Team Providers Name Role Phone Ingrid Santana RN Unavailable Unavailable Momo Forbes Primary Care Provider Joseph Quintana MD Unavailable Encounter Details Date Type Department Care Team Description 05/27/2014 External Order Results The Transplant Ce nter Nurse, [facility] 2nd Floor, Clinic 2A [address] [place] [address] Social History Tobacco Use Types [...] Estimated >60 >60 LABDE SCAN (if ml/min/1.7 Gambian) 3m2 (External) GFR Estimated 52 (L) >60 [...] filedocumented in this encounter Care Teams Cook Pressure Relationship Specialty Start Date End Date Momo Forbes PCP - General Family Practice 01/02/14 [facility] [address] [place], [place] [phone] Ingrid Santana, RN Registered Nurse Transplant 02/10/12 Joseph Quintana, Assigned Nephrology 03/29/21 MD Provider [address] [place] [phone] documented as of this encounter
--- OUTSIDE RECORDS SUMMARY | 2022-07-29 13:01 | XMS_ITS | Encounter Summary ---
:1950 Author Organization [place] Address [facility] [place] [address] Care Team Providers Name Role Phone Ingrid Santana RN Unavailable Unavailable Momo Forbes Primary Care Provider Encounter Details Date Type Department Care Team Description 06/17/2014 External Order Results The Transplant Ce nter Nurse, [facility] 2nd Floor, Clinic [address]A [address] [phone] Social History Tobacco Use Types [...] 57 (L) >60 LABDE SCAN (if ml/min/1.7 Belarusian) 3m2 (External) GFR Estimated 47 (L) >60 [...] on filedocumented in this encounter Care Teams Documentation Specialist Relationship Specialty Start Date End Date Momo Forbes PCP - General Family Practice 01/02/14 [facility] [address] [place] [phone] Ingrid Santana, RN Registered Nurse Transplant 02/10/12 documented as of this encounter
--- OUTSIDE RECORDS SUMMARY | 2022-07-29 13:01 | XMS_ITS | Encounter Summary ---
:1950 Author Organization [place] Address [facility] [place] [address] Care Team Providers Name Role Phone Ingrid Santana RN Unavailable Unavailable Momo Forbes Primary Care Provider Encounter Details Date Type Department Care Team Description 05/27/2014 Orders Only Nephrology Shiva Kahn RN -donor kidney 2nd Floor, Clinic 2A [facility] transplant recipient Tommy Ruizfelisa [address] [place] [phone] Social History Tobacco Use Types Packs/Day Years [...] documented in this encounter Care Teams Software Systems Engineer Relationship Specialty Start Date End Date Momo Forbes PCP - General Family Practice 01/02/[address] [address] Ingrid Santana RN Registered Nurse Transplant 02/10/12 documented as of this encounter
--- OUTSIDE RECORDS SUMMARY | 2022-07-29 13:01 | XMS_ITS | Encounter Summary ---
:1950 Author Organization [place] Address [facility] [place] [address] Care Team Providers Name Role Phone Ingrid Santana RN Unavailable Unavailable Moom Forbes Primary Care Provider Reason for Visit Reason Onset Date Comments Anticoagulation 04/01/2014 Encounter Details Date Type Department Care Team Description 04/01/2014 Telephone [facility] Joseph Levine , Anticoagulation Anticoagulation Clin ic [facility] [address] [place], [place] [phone] [facility] [phone] [place] [address] [place] [phone] (Wo rk) Social History Tobacco Use Types Packs/Day Years Used Date Smoking Tobacco: Former Cigars Quit : 08/22/2006 Smokeless Tobacco: Never Alcohol Use Standard Drinks/Week Comments Yes 0 (1 standard drink = 0.6 oz pure alcoho l) occasional drink. Sex Assigned at Date Recorded Not on file documented as of this encounter Miscellaneous Notes Telephone Encounter - Joseph Levine, [facility] - 04/01/2014 5:22 PM CDT [...] in this encounter Care Teams Director Of Labor Relations Relationship Specialty Start Date End Date Momo Forbes PCP - General Family Practice 01/02/14 [place] [phone] Ingrid Santana, RN Registered Nurse Transplant 02/10/12 documented as of this encounter
--- OUTSIDE RECORDS SUMMARY | 2022-07-29 13:01 | XMS_ITS | Encounter Summary ---
:1950 Author Organization [place] Address [address] [place] [address] Care Team Providers Name Role Phone Ingrid Santana RN Unavailable Unavailable Momo Forbes Primary Care Provider Joseph Quintana MD Unavailable Encounter Details Date Type Department Care Team Description 06/08/2014 External Order Results The Transplant Ce nter Nurse, [facility] 2nd Floor, Clinic [address]A [address] [place] [address] Social History Tobacco Use Types [...] External Lab Result (06/05/2014 8:30 AM CDT) [facility] Method Time Signature Sodium (External) 138 [...] in this encounter Care Teams Director Of Informatics Relationship Specialty Start Date End Date Momo Forbes PCP - General Family Practice 01/02/14 [facility] [address] [place] [address] Ingrid Santana, RN Registered Nurse Transplant 02/10/12 Joseph Quintana, Assigned Nephrology 03/29/21 MD Provider [address] [place] [address] [address] [place] [address] documented as of this encounter
--- OUTSIDE RECORDS SUMMARY | 2022-07-29 13:01 | XMS_ITS | Encounter Summary ---
:1950 Author Organization [place] Address [facility] [place] [address] Care Team Providers Name Role Phone Ingrid Santana RN Unavailable Unavailable Momo Forbes Primary Care Provider Reason for Visit Reason Comments RECHECK 3 month Tx follow Up Encounter Details Date Type Department Care Team Description 05/13/2014 Office Visit Nephrology Deysi Alicea, DM (diabetes mellitus), type 2 (H) (Primary Dx); 2nd Floor, Clinic 2A MD S/P kidney transplant Tommy Wilburn [id number] [place] [address] (Wo rk) [address] [phone] Social History Tobacco Use Types Packs/Day Years [...] discharged on Cumadin; Cumadin was stopped by claim attorney during the follow up visit, as he [...] Years of Education: 14 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 Roomed and ready for provider. Yesenia Cleemnts CMA documented in this encounter Plan of Treatment Not on filedocumented as of this encounter Visit Diagnoses Diagnosis DM (diabetes mellitus), type 2 (H) - Ana ashley Type II or unspecified type diabetes aung litus without mention of complication, not stated as uncontrolled S/P kidney transplant Kidney replaced by transplant documented in this encounter Care Teams Converter Operator Relationship Specialty Start Date End Date Momo Forbes PCP - General Family Practice 01/02/14 [place] [id number] Ingrid Santana, RN Registered Nurse Transplant 02/10/12 documented as of this encounter
--- OUTSIDE RECORDS SUMMARY | 2022-07-29 13:01 | XMS_ITS | Encounter Summary ---
:1950 Author Organization [place] Address [facility] [place] [address] Care Team Providers Name Role Phone Ingrid Santana RN Unavailable Unavailable Momo Forbes Primary Care Provider Encounter Details Date Type Department Care Team Description 06/10/2014 External Order Results The Transplant Ce nter Nurse, [facility] 2nd Floor, Clinic [address]A [address] [phone] Social History Tobacco Use Types [...] 60 (L) >60 LABDE SCAN (if ml/min/1.7 Gibralt[place]) 3m2 (External) GFR Estimated 49 (L) >60 [...] filedocumented in this encounter Care Teams Nursery Worker Relationship Specialty Start Date End Date Momo Forbes PCP - General Family Practice 01/02/14 [facility] [address] [place] [address] Ingrid Santana, RN Registered Nurse Transplant 02/10/12 documented as of this encounter
--- OUTSIDE RECORDS SUMMARY | 2022-07-29 13:01 | XMS_ITS | Encounter Summary ---
:1950 Author Organization [place] Address [facility] [place] [address] Care Team Providers Name Role Phone Ingrid Santana RN Unavailable Unavailable Momo Forbes Primary Care Provider Encounter Details Date Type Department Care Team Description 06/07/2014 External Order Results The Transplant Ce nter Nurse, [facility] 2nd Floor, Clinic [address]A [address] [phone] Social History Tobacco Use Types [...] External Lab Result (06/05/2014 8:30 AM CDT) [facility] Method Time Signature Sodium (External) [...] filedocumented in this encounter Care Teams Geriatric Assistant Relationship Specialty Start Date End Date Momo Forbes PCP - General Family Practice 01/02/14 [facility] [address] [place] [address] Ingrid Santana, RN Registered Nurse Transplant 02/10/12 2 documented as of this encounter
--- OUTSIDE RECORDS SUMMARY | 2022-07-29 13:01 | XMS_ITS | Encounter Summary ---
:1950 Author Organization [place] Address [facility] [place] [address] Care Team Providers Name Role Phone Ingrid Santana RN Unavailable Unavailable Momo Forbes Primary Care Provider Reason for Visit Reason Comments Heart Problem 6 week F/U Encounter Details Date Type Department Care Team Description 05/14/2014 [facility] [place] [facility] Kei Hernandez, shanon carey (Primary Heart MD Dx) [facility] [place] 4th Floor, Clinic [address]B [address] [phone] [employer], [place] (Work) [address] [phone] Social History Tobacco Use Types Packs/Day Years [...] questions or concerns. 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
--- OUTSIDE RECORDS SUMMARY | 2022-07-29 13:01 | XMS_ITS | Encounter Summary ---
:1950 Author Organization [place] Address [facility] [place] [address] Care Team Providers Name Role Phone Ingrid Santana RN Unavailable Unavailable Momo Forbes Primary Care Provider Reason for Visit Reason Comments Heart Problem 2 m f/u Post op AFIB s/p DCC V. on warfarin 4 weeks Encounter Details Date Type Department Care Team Description 04/09/2014 [facility] Atrial fibrill ation (H) (Primary Dx); [place] [facility] Enrique Maria pecified essential hypertension; Heart Other and unspecified hyperlipidemia; Tommy [facility] DM (diabetes mellitus), type 2 (H) Building [place] 4th Floor, Clinic 4B [address] [phone] [place], [place] (Work) [address] [phone] Social History Tobacco Use Types Packs/Day Years [...] questions or concerns. 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 Smoking [...] 04/01/2014 Negative NEG mg/dL Final ??? Specific [place] Urine 04/01/2014 1.017 1.003 - 1.035 Final [...] NEG Ketones Urine Negative NEG mg/dL Specific [place] Urine 1.017 1.003 - 1.035 Blood Urine [...] uncontrolled documented in this encounter Care Teams Pipe Line Inspector Relationship Specialty Start Date End Date Momo Forbes PCP - General Family Practice 01/02/14 [facility] [address] [place] [address] Ingrid Santana, RN Registered Nurse Transplant 02/10/12 documented as of this encounter
--- OUTSIDE RECORDS SUMMARY | 2022-07-29 13:01 | XMS_ITS | Encounter Summary ---
:1950 Author Organization [place] Address [facility] [place] [address] Care Team Providers Name Role Phone Ingrid Santana RN Unavailable Unavailable Momo Forbes Primary Care Provider Encounter Details Date Type Department Care Team Description 05/17/2014 Orders Only Nephrology Shiva Kahn RN -donor kidney 2nd Floor, Clinic 2A [facility] transplant recipient Tommy Ruizfelisa [address] [place] [address] (Primary Dx) Building [address] [place] [phone] [phone] Social History Tobacco Use Types Packs/Day Years [...] transplant documented in this encounter Care Teams Distance Education Teacher Relationship Specialty Start Date End Date Momo Forbes PCP - General Family Practice 01/02/[address] [address] Ingrid Santana RN Registered Nurse Transplant 02/10/12 documented as of this encounter
--- OUTSIDE RECORDS SUMMARY | 2022-07-29 13:01 | XMS_ITS | Encounter Summary ---
:1950 Author Organization [place] Address [facility] [place] [address] Care Team Providers Name Role Phone Ingrid Santana RN Unavailable Unavailable Momo Forbes Primary Care Provider Reason for Visit Reason Onset Date Comments Refill Request 04/05/2014 Tamy Cabrera Encounter Details Date Type Department Care Team Description 04/05/2014 Refill The Transplant Migel Martinez, Refill Request 2nd Floor, Clinic 2A ([facility] 420 [facility] antoprazole) Building [facility] 195 6 [facility] 88 [place] [address] [phone] Social History Tobacco Use Types Packs/Day Years [...] Last Fill: 03/14/14 Qty: 30 [facility] [phone] documented in this encounter Plan of Treatment Not on filedocumented as of this encounter Visit Diagnoses Diagnosis S/P kidney transplant Kidney replaced by transplant Atrial fibrillation (H) Atrial fibrillation documented in this encounter Care Teams Rn Maternity Relationship Specialty Start Date End Date Momo Forbes PCP - General Family Practice 01/02/14 [facility] [address] [place] [address] Ingrid Santana, RN Registered Nurse Transplant 02/10/12 documented as of this encounter
--- OUTSIDE RECORDS SUMMARY | 2022-07-29 13:01 | XMS_ITS | Encounter Summary ---
:1950 Author Organization [place] Address [address] [place] [address] Care Team Providers Name Role Phone Ingrid Santana RN Unavailable Unavailable Momo Forbes Primary Care Provider Joseph Quintana MD Unavailable Encounter Details Date Type Department Care Team Description 05/16/2014 External Order Results The Transplant Ce nter Nurse, [facility] 2nd Floor, Clinic 2A [address] [place] [address] Social History Tobacco Use Types [...] ml/min/1.7 [place]) 3m2 (External) GFR Estimated 52 (L) >60 [...] filedocumented in this encounter Care Teams Dry Chain Worker Relationship Specialty Start Date End Date Momo Forbes PCP - General Family Practice 01/02/14 [facility] [address] [place] [address] Ingrid Santana, RN Registered Nurse Transplant 02/10/12 Joseph Quintana, Assigned Nephrology 03/29/21 MD Provider [address] [place] [address] documented as of this encounter
--- OUTSIDE RECORDS SUMMARY | 2022-07-29 13:01 | XMS_ITS | Encounter Summary ---
:1950 Author Organization [place] Address [facility] [place] [address] Care Team Providers Name Role Phone Ingrid Santana RN Unavailable Unavailable Momo Forbes Primary Care Provider Encounter Details Date Type Department Care Team Description 05/10/2014 Orders Only Nephrology Shiva Kahn RN -donor kidney 2nd Floor, Clinic 2A [facility] transplant recipient Tommy Ruizfelisa [address] [place] [address] (Primary Dx) Building [address] [place] [phone] Social History Tobacco Use Types Packs/Day Years [...] transplant documented in this encounter Care Teams Shoe Singer Relationship Specialty Start Date End Date Momo Forbes PCP - General Family Practice 01/02/[address] [address] Ingrid Santana RN Registered Nurse Transplant 02/10/12 documented as of this encounter
--- OUTSIDE RECORDS SUMMARY | 2022-07-29 13:01 | XMS_ITS | Encounter Summary ---
:1950 Author Organization [place] Address [address] [place] [address] Care Team Providers Name Role Phone Ingrid Santana RN Unavailable Unavailable Momo Forbes Primary Care Provider Encounter Details Date Type Department Care Team Description 04/22/2014 Orders Only [facility], Joseph [facility], [facility] j[place] [address] [phone] [place] [address] 433 [place] [address] (Wo rk) Social History Tobacco [...] (ABNORMAL) Tacrolimus level (05/17/2014 8:17 AM CDT) [facility] Method Time Signature Tacrolimus Last 05/16/2014 [facility] Dose 2000 [facility] Tacrolimus 4.4 (L) 5.0 - [facility] Level 15.0 ug/L [facility] [...] Phon e Number [facility] 500 [place], [place] [id number] [place] [address] [facility] (ABNORMAL) Tacrolimus level (05/15/2014 8:15 AM CDT) [facility] gist Method Time Signature Tacrolimus Last 05/14/14 [facility] Dose 2000 [facility] Tacrolimus 4.6 (L) 5.0 - [facility] Level 15.0 ug/L [facility] [...] Phon e Number [facility] [address] [place] [address] [facility] Tacrolimus level (05/10/2014 8:50 AM CDT) [facility] gist Method Time Signature Tacrolimus Not Provided [facility] Last Dose [facility] Tacrolimus 14.3 5.0 - [facility] Level 15.0 ug/L [facility] [...] Phon e Number [facility] [address] [place] [address] [place] [facility] (ABNORMAL) Tacrolimus level (05/07/2014 8:15 AM CDT) [facility] gist Method Time Signature Tacrolimus Last 05/06/14 [facility] Dose 2000 [facility] Tacrolimus 15.9 (H) 5.0 - [facility] Level 15.0 ug/L [facility] [...] Phon e Number [facility] [address] [place], [place] [phone] [place] [address] [facility] Tacrolimus level (05/03/2014 8:13 AM CDT) [facility] gist Method Time Signature Tacrolimus Last [facility] Dose 2000 [facility] Tacrolimus 8.8 5.0 - [facility] Level 15.0 ug/L [facility] [...] Phon e Number [facility] [address] [place], [place] [phone] [place] [address] [facility] Tacrolimus level (04/30/2014 8:20 AM CDT) [facility] gist Method Time Signature Tacrolimus Last 04/29/14 [facility] Dose 2000 [facility] Tacrolimus 12.6 5.0 - [facility] Level 15.0 ug/L [facility] [...] Phon e Number [facility] 500 [place], [place] [phone] [place] [address] [facility] Tacrolimus level (04/26/2014 8:30 AM CDT) [facility] gist Method Time Signature Tacrolimus Last 04/25/14 [facility] Dose 1900 [facility] Tacrolimus 10.1 5.0 - [facility] Level 15.0 ug/L [facility] [...] Phon e Number [facility] [address] [place] [address] [facility] Tacrolimus level (04/24/2014 9:00 AM CDT) [facility] gist Method Time Signature Tacrolimus Last 04/23/14 [facility] Dose 1900 [facility] Tacrolimus 13.1 5.0 - [facility] Level [...] Phon e Number [facility] 500 [place], [place] [phone] [place] [address] LABS documented in this encounter Visit Diagnoses Not on filedocumented in this encounter Care Teams Mortgage Clerk Relationship Specialty Start Date End Date Momo Forbes PCP - General Family Practice 01/02/14 [facility] [address] [place] [address] Ingrid Santana, RN Registered Nurse Transplant 02/10/12 documented as of this encounter
--- OUTSIDE RECORDS SUMMARY | 2022-07-29 13:01 | XMS_ITS | Encounter Summary ---
:1950 Author Organization [place] Address [facility] [address] Care Team Providers Name Role Phone Ingrid Santana RN Unavailable Unavailable Momo Forbes Primary Care Provider Reason for Visit Reason Onset Date Comments Pre Visit Planning - Done 05/13/2014 6 week f/u pos t op afib. medication changes last visit. Encounter Details Date Type Department Care Team Description 05/13/2014 PRE VISIT [facility] [address] Pre Visit Planning - Physicians Orestes Hernandez MD Done (6 week f/u post [facility] op afib. medication Building [place] changes last visit. ) 4th Floor, Clinic 4B [address] [phone] (Wo rk) [address] [phone] Social History Tobacco Use Types Packs/Day Years [...] on filedocumented in this encounter Care Teams A/C Tech Relationship Specialty Start Date End Date Momo Forbes PCP - General Family Practice 01/02/[address] [address] Ingrid Santana, RN Registered Nurse Transplant 02/10/12 documented as of this encounter
--- OUTSIDE RECORDS SUMMARY | 2022-07-29 13:01 | XMS_ITS | Encounter Summary ---
:1950 Author Organization [place] Address [facility]0 [facility] [place] [address] Care Team Providers Name Role Phone Ingrid Santana RN Unavailable Unavailable Momo Forbes Primary Care Provider Encounter Details Date Type Department Care Team Description 05/20/2014 External Order Results The Transplant Ce nter Nurse, [facility] 2nd Floor, Clinic 2A [address] [phone] Social History Tobacco Use Types [...] 55 (L) >60 LABDE SCAN (if ml/min/1.7 Trin[place]adian) 3m2 (External) GFR Estimated 46 (L) >60 [...] filedocumented in this encounter Care Teams Exterminator Termite Relationship Specialty Start Date End Date Momo Forbes PCP - General Family Practice 01/02/14 [facility] [address] [place], [place] [phone] Ingrid Santana, RN Registered Nurse Transplant 02/10/12 documented as of this encounter
--- OUTSIDE RECORDS SUMMARY | 2022-07-29 13:01 | XMS_ITS | Encounter Summary ---
:1950 Author Organization [place] Address [address] [place] [address]. [place] [address] Care Team Providers Name Role Phone Ingrid Santana RN Unavailable Unavailable Momo Forbes Primary Care Provider Encounter Details Date Type Department Care Team Description 04/04/2014 Orders Only Nephrology Shiva Kahn RN S/P kidney transplant 2nd Floor, Clinic [address]A [address] [phone] Social History Tobacco Use Types Packs/Day Years [...] transplant documented in this encounter Care Teams Ticket Seller Relationship Specialty Start Date End Date Momo Forbes PCP - General Family Practice 01/02/14 [facility] [address] [place] [address] Ingrid Santana RN Registered Nurse Transplant 02/10/12 documented as of this encounter
--- OUTSIDE RECORDS SUMMARY | 2022-07-29 13:01 | XMS_ITS | Encounter Summary ---
:1950 Author Organization [place] Address [facility] [place] [address] Care Team Providers Name Role Phone Ingrid Santana RN Unavailable Unavailable Momo Forbes Primary Care Provider Reason for Visit Reason Onset Date Comments Refill Request 04/26/2014 Encounter Details Date Type Department Care Team Description 04/26/2014 Refill Nephrology Shiva Kahn RN Refill Request 2nd Floor, Clinic 2A [facility] Sanders [place] [address] [facility]2 [place], [place] [phone] [place] [address] [place] [phone] Social History Tobacco Use Types Packs/Day [...] transplant documented in this encounter Care Teams Truck Technician Relationship Specialty Start Date End Date Momo Forbes PCP - General Family Practice 01/02/14 [facility] [address] [place] [address] Ingrid Santana RN Registered Nurse Transplant 02/10/12 documented as of this encounter
--- OUTSIDE RECORDS SUMMARY | 2022-07-29 13:01 | XMS_ITS | Encounter Summary ---
:1950 Author Organization [place] Address [facility] [place] [address] Care Team Providers Name Role Phone Ingrid Santana RN Unavailable Unavailable Momo Forbes Primary Care Provider Reason for Visit Reason Onset Date Comments Pre Visit Planning - Done 04/08/2014 2 m f/u Post o p AFIB s/p DCCV. on warfarin 4 weeks Encounter Details Date Type Department Care Team Description 04/08/2014 PRE VISIT [facility] [address] Pre Visit Planning - Physicians Heart MD David Done (2 m f/u Post op [facility] AF IB s/p DCCV. on [facility] warfarin 4 weeks) 4th Floor, Clinic 4B [address] [phone] (Wo rk) [address] [phone] Social History Tobacco Use Types Packs/Day Years [...] filedocumented in this encounter Care Teams Metal Handler Relationship Specialty Start Date End Date Momo Forbes PCP - General Family Practice 01/02/[address] [address] Ingrid Santana, RN Registered Nurse Transplant 02/10/12 documented as of this encounter
--- OUTSIDE RECORDS SUMMARY | 2022-07-29 13:01 | XMS_ITS | Encounter Summary ---
:1950 Author Organization [place] Address [address] [place] [address] Care Team Providers Name Role Phone Ingrid Santana RN Unavailable Unavailable Momo Forbes Primary Care Provider Encounter Details Date Type Department Care Team Description 05/22/[address] [facility], [facility], [facility] jm ID [address] [phone] [place] [address] [address] [place] [address] (Wo rk) Social History [...] Results Tacrolimus level (06/17/2014 8:05 AM CDT) [facility] gist Method Time Signature Tacrolimus Last 06/16/14 [facility] Dose 2000 [facility] Tacrolimus 6.5 5.0 - [facility] Level 15.0 ug/L [facility] Comment: Tacrolimus Reference Range [...] Phon e Number [facility] 500 [place] [address] [facility] LABS Tacrolimus level (06/10/2014 7:52 AM CDT) [facility] gist Method Time Signature Tacrolimus Last 1999 [facility] Dose 06/09/14 [facility] LABS Tacrolimus 7.9 5.0 - [facility] Level 15.0 ug/L CARL [...] Phon e Number [facility] 500 [place] [address] [facility] LABS Tacrolimus level (06/05/2014 8:28 AM CDT) [facility] gist Method Time Signature Tacrolimus Last 1999 [facility] Dose 06/04/14 [facility] LABS Tacrolimus 7.9 5.0 - [facility] Level 15.0 ug/L CARL [...] City/[facility]/ZIP Code Phon e Number [facility] [address] LABS Tacrolimus level (05/24/2014 8:05 AM CDT) [facility] gist Method Time Signature Tacrolimus 05/23/14 [facility] Last Dose 20:00 [facility] LABS Tacrolimus Test 5.0 - [facility] Level canceled - 15.0 ug/L [place] [facility] order CAMPUS LABS entry error Specimen Anatomical Collection Method Collection Time Receive d Time (Source) Location / / Volume Laterality 05/24/2014 8:05 AM 4 2:49 CDT PM CDT Deysi Alicea MD LAB - BLOOD ORDERABLES Performing Organization Address City/[facility]/ZIP Code Phon e Number [facility] [address] LABS Tacrolimus level (05/24/2014 8:05 AM CDT) [facility] gist Method Time Signature Tacrolimus Last 05/23/14 [facility] Dose 20:00 [facility] LABS Tacrolimus 5.8 5.0 - [facility] Level 15.0 ug/L CARL [...] Phon e Number [facility] [address] LABS documented in this encounter Visit Diagnoses Not on filedocumented in this encounter Care Teams Birdcage Assembler Relationship Specialty Start Date End Date Momo Forbes PCP - General Family Practice 01/02/14 [facility] [address] [place] [address] Ingrid Santana, RN Registered Nurse Transplant 02/10/12 documented as of this encounter
--- OUTSIDE RECORDS SUMMARY | 2022-07-29 13:02 | XMS_ITS | Encounter Summary ---
:1950 Author Organization [place] Address [address] [place] [address] Care Team Providers Name Role Phone Ingrid Santana RN Unavailable Unavailable Momo Forbes Primary Care Provider Encounter Details Date Type Department Care Team Description 03/11/2014 Anesthesia Event [facility] Aly Esquivel MD PeriOp Services 420 [facility] 500 [facility] 294 [place] [address] [place] [address] [phone] (Wo rk) Anesthesia Record Procedure Summary Procedure [...] alternatives discussed with: patient or practice representative. Possibility of blood products discussed. Procedures [...] on filedocumented in this encounter Care Teams Grazing Examiner Relationship Specialty Start Date End Date Momo Forbes PCP - General Family Practice 01/02/[address] [address] Ingrid Santana, RN Registered Nurse Transplant 02/10/12 documented as of this encounter
--- OUTSIDE RECORDS SUMMARY | 2022-07-29 13:02 | XMS_ITS | Encounter Summary ---
:1950 Author Organization [place] Address [address] [place] [address] Care Team Providers Name Role Phone Ingrid Santana RN Unavailable Unavailable Momo Forbes Primary Care Provider Reason for Visit Auth/Cert - Closed Specialty Diagnoses / Procedures Referred By Contact Refer red To Contact Surgery Diagnoses S/P Kidney Transplant Uu Periop Procedures COMBINED CYSTOSCOPY, REMOVE STENT(S) 500 [place] [address] Phone: Fax: Referral ID Status Reason Start Date Expiration Date Visits Requ ested Visits Authorized [id number] Closed 1 1 Encounter Details Date Type Department Care Team Description 04/01/2014 Surgery [facility] Migel Merchant , [place] of Right Double PeriOp Services J Stent 500 [facility] 420 [facility] [place] [address] [place] [address] [place] [address] (Wo rk) Surgery Details Date/Time Status Location [...] Scott RN - 04/01/2014 10:15 AM CDT [facility] [place] Same-Day Surgery Adult Discharge Orders & Instructions [...] To contact a doctor, call or: ??? [phone] and ask for the resident telephone supervisor for (answered 24 hours a day) ??? Emergency Department: [facility]: [phone] (TTY for hearing impaired: [phone]) documented in this encounter Medications at Time [...] gist Range Method Time Signature Specimen Unspecified [facility] Description Urine CAMPUS LABS Special Specimen [...] Number [facility] [address] LABS [facility] MICROBIOLOGY (ABNORMAL) UA with Microscopic (04/01/2014 9:00 AM CDT) Component Value Ref Test Analysis Performed At Patholo gist Range Method Time Signature Color Urine Yellow [facility] LABS Appearance Urine Clear [facility] Glucose Urine 30 (A) NEG [facility] mg/dL [facility] LABS Bilirubin Urine Negative NEG [facility] Ketones Urine Negative NEG [facility] mg/dL [facility] [place] [facility] Specific [place] 1.017 1.003 - [facility] Urine 1.035 [facility] [place] [facility] Blood Urine Moderate (A) [facility] pH Urine 6.0 5.0 - [facility] 7.0 pH [facility] LABS Protein Albumin 10 (A) NEG [facility] Urine mg/dL [facility] [place] [facility] Urobilinogen Normal 0.0 - [facility] mg/dL 2.0 [facility]ITY mg/dL CAMPUS LABS Nitrite Urine Negative NEG [facility] Leukocyte Negative NEG [facility] Esterase Urine [facility] [place] [facility] Source Unspecified [facility] Urine UNIVERSITY CAMPUS [...] Code Phon e Number [facility] [address] LABS (ABNORMAL) INR (04/01/2014 8:36 AM CDT) P athologist Signature INR 1.64 (H) 0.86 - 1.14 [facility] LABS Specimen Anatomical Collection Method Collection Time Receive d Time (Source) Location / / Volume Laterality Blood specimen 04/01/2014 8:36 AM 014 8:41 (specimen) CDT AM CDT Momo Jimenez MD LAB - BLOOD ORDERABLES Performing Organization Address City/[facility]/ZIP Code Phon e Number [facility] [address] LABS EKG 12-lead, tracing only (04/01/2014 8:28 AM CDT) [facility] gist Method Time Signature Interpretation ECG Click View RADIOLOGY Image link RESULTS to view waveform and result Specimen (Source) Anatomical Collection Method Collection Time Re ceived Time Location / / Volume Laterality 04/01/2014 8:28 AM CDT Momo Jimenez MD ECG ORDERABLES Performing Organization Address City/[facility]/ZIP Code Phon e Number RADIOLOGY RESULTS Potassium (04/01/2014 8:11 AM CDT) athologist Signature Potassium 4.1 3.4 - 5.3 [facility] mmol/L CAMPUS LABS Specimen Anatomical Collection Method Collection Time Receive d Time (Source) Location / / Volume Laterality Blood specimen 04/01/2014 8:11 AM 014 8:27 (specimen) CDT AM CDT Momo Jimenez MD LAB - BLOOD ORDERABLES Performing Organization Address City/[facility] Code Phon e Number [address] LABS (ABNORMAL) Hemoglobin (04/01/2014 8:11 AM CDT) athologist [facility] Hemoglobin 10.2 (L) 13.3 - [facility] 17.7 g/dL CAMPUS LABS Specimen Anatomical Collection Method Collection Time Receive d Time (Source) Location / / Volume Laterality Blood specimen 04/01/2014 8:11 AM 014 8:27 (specimen) CDT AM CDT Momo Jimenez MD LAB - BLOOD ORDERABLES Performing Organization Address City/[facility]/ZIP Code Phon e Number [address] LABS (ABNORMAL) Glucose by meter (04/01/2014 [...] 0850 (Given - Provider: Addis Brannon APRN AD WRITER - Comment: Asked by Fellow to give [...] in this encounter Care Teams Senior Technical Architect Relationship Specialty Start Date End Date Momo Forbes PCP - General Family Practice 01/02/[address] [address] Ingrid Santana, RN Registered Nurse Transplant 02/10/12 documented as of this encounter
--- OUTSIDE RECORDS SUMMARY | 2022-07-29 13:02 | XMS_ITS | Encounter Summary ---
:1950 Author Organization [place] Address [address] [facility] [place] [address] Care Team Providers Name Role Phone Ingrid Santana RN Unavailable Unavailable Momo Forbes Primary Care Provider Reason for Visit Reason Comments Surgical Followup kidney tx 02/02/14 Encounter Details Date Type Department Care Team Description 02/25/2014 Office Visit Transplant Surgery Finger, Migel Hypophosp hatemia (Primary Dx); Clinic MD Nathan Kidney replaced by transplant; 2nd Floor, Clinic [address] [place] [address] -donor kidney transp lant recipient; [address] 1 95 High risk medications (not anticoagulant s) long-term use; Building care home (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 Otherwise well Abd mod obesity. [place] in place. Drain with small amt of [...] will give mag and phos prescription. 5. [place] - Out today 6 Drain -- out [...] sults (not anticoagulants) section . 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 PHOSPHORUS Routine 02/25/2014 [...] PM 4 1:40 CDT PM CDT Migel [facility] POCT Performing Organization Address City/State/ZIP Code Phon e Number [facility] POINT OF CARE TEST, GLUCOSE POINT OF CARE TEST, GLUCOSE BK virus PCR quantitative (02/25/2014 10:54 AM CDT) Component Value Ref Test Analysis Performed At Patholo gist Range Method Time [facility] BK Virus DNA Plasma, EDTA [facility] Quant Source anticoagulant [facility] LABS BK Virus DNA <390 [facility] Quant Unit: cpy/mL [facility] Copy/mL [place] LABS BK Virus DNA <2.6 [facility] Quant Log Unit: log [facility] (Note) [place] LABS INTERPRETIVE INFORMATION: BK Virus, Quantitation by [...] methodologies. Test developed and characteristics determined by [employer]. See Compliance Statement A: [employer]lyce/ BK Virus DNA Not Detected [facility] Quant Interp Reference range: Not Detected [facility] (Note) [place] [facility]S Performed by [employer], [address] [place] [id number] [email or web address], Kj Mcmillan MD, Lab. Director Specimen Anatomical Collection Method Collection Time Receive d Time (Source) Location / / Volume Laterality Blood specimen 02/25/2014 10:54 4 (specimen) AM CDT 10:55 AM CDT Deysi Alicea MD LAB - MICRO GENERAL ORDERABL ES Performing Organization Address City/State/ZIP Code Phon e Number [id number] [place] [address] LABS Immunology recipient: SOT PRA (Post Tx for Donor Spec Antibody) (02/25/2014 10:54 AM CDT) [facility] Method Time Signature Immunology PRA [facility] Test Name [facility] LABS Immunology Specimen [facility] Result received - [facility] LABS report to follow upon completion. Specimen Anatomical Collection Method Collection Time Receive d Time (Source) Location / / Volume Laterality Blood specimen 02/25/2014 10:54 4 (specimen) AM CDT 10:55 AM CDT Deysi Alicea MD LAB - IMMUNOLOGY ORDERABLES Performing Organization Address City/State/ZIP Code Phon e Number [facility] [address] LABS (ABNORMAL) INR (02/25/2014 10:53 AM CDT) athologist Signature INR 2.39 (H) 0.86 - 1.14 [facility] LABS Specimen Anatomical Collection Method Collection Time Receive d Time (Source) Location / / Volume Laterality Blood specimen 02/25/2014 10:53 4 (specimen) AM CDT 10:54 AM CDT Migel Merchant MD LAB - BLOOD ORDERABLES Performing Organization Address City/[facility]/ZIP Code Phon e Number [facility] [address] LABS (ABNORMAL) Magnesium (02/25/2014 10:53 AM CDT) athologist Signature Magnesium 1.5 (L) 1.6 - 2.3 [facility] mg/dL [place] LABS Specimen Anatomical Collection Method Collection Time Receive d Time (Source) Location / / Volume Laterality Blood specimen 02/25/2014 10:53 4 (specimen) AM CDT 10:54 AM CDT Deysi Alicea MD LAB - BLOOD ORDERABLES Performing Organization Address City/[facility]/ZIP Code Phon e Number [facility] [address] LABS (ABNORMAL) Phosphorus (02/25/2014 10:53 AM CDT) athologist Signature Phosphorus 1.3 (L) 2.5 - 4.5 [facility] mg/dL [place] LABS Specimen Anatomical Collection Method Collection Time Receive d Time (Source) Location / / Volume Laterality Blood specimen 02/25/2014 10:53 4 (specimen) AM CDT 10:54 AM CDT Deysi Alicea MD LAB - BLOOD ORDERABLES Performing Organization Address City/State/ZIP Code Phon e Number [address] LABS Mycophenolic acid (02/25/2014 10:53 AM [...] Phon e Number [facility] [address] [facility] [place] [facility]S Tacrolimus level (02/25/2014 10:53 AM CDT) [facility] gist Method Time Signature Tacrolimus 02/24/14 ?1999 [facility] Last Dose CORRECTED ON 02/25 AT 1055: PREVIOUSLY REPORTED 1999 [facility] [place] LABS Tacrolimus 9.1 5.0 - [facility] Level 15.0 ug/L [place] [...] Phon e Number [facility] 500 [place] [address] [facility] LABS (ABNORMAL) Basic metabolic panel (02/25/2014 10:53 AM CDT) [facility] gist Method Time Signature Sodium 137 133 - 144 [facility] mmol/L [facility] LABS Potassium 4.6 3.4 - 5.3 [facility] mmol/L [facility] Chloride 108 94 - 109 [facility] mmol/L [facility] LABS Carbon Dioxide 19 (L) 20 - 32 [facility] mmol/L [facility] [place] LABS Anion Gap 10 6 - 17 [facility] mmol/L [facility] LABS Glucose 217 (H) 60 - 99 [facility] mg/dL [facility] LABS Urea Nitrogen 13 7 - 30 [facility] mg/dL [facility] LABS Creatinine 1.48 (H) 0.66 - [facility] 1.25 mg/dL [facility] [place] LABS GFR Estimate 48 (L) >60 [facility] mL/min/1.7 [facility] m2 CAMPUS LABS GFR Estimate If 58 (L) >60 [facility] Black mL/min/1.7 [facility] m2 CAMPUS LABS Calcium 9.6 8.5 - 10.4 [facility] mg/dL [facility] LABS Specimen Anatomical Collection Method Collection Time Receive d Time (Source) Location / / Volume Laterality Blood specimen 02/25/2014 10:53 4 (specimen) AM CDT 10:54 AM CDT Deysi Alicea MD LAB - BLOOD ORDERABLES Performing Organization Address City/State/ZIP Code Phon e Number [address] [address] [place] [facility] (ABNORMAL) CBC with platelets differential (02/25/2014 10:53 AM CDT) [facility] gist Method Time Signature WBC 4.9 4.0 - [facility] 11.0 UN[facility]ITY 10e9/L CAMPUS LABS RBC Count 2.67 (L) 4.4 - 5.9 [facility] 10e12/L [facility] LABS Hemoglobin 7.8 (L) 13.3 - [facility] 17.7 g/dL [facility] LABS Hematocrit 23.5 (L) 40.0 - [facility] 53.0 % [facility] LABS MCV 88 78 - 100 [facility] fl [facility] LABS MCH 29.2 26.5 - [facility] 33.0 pg [facility] LABS MCHC 33.2 31.5 - [facility] 36.5 g/dL [facility] LABS RDW 14.3 10.0 - [facility] 15.0 % [facility] LABS Platelet Count 179 150 - 450 [facility] 10e9/L [facility] LABS Diff Method Automated [facility] Method [facility] % Neutrophils 89.4 % [facility] LABS % Lymphocytes 3.9 % [facility] LABS % Monocytes 5.1 % [facility] % Eosinophils 1.2 % [facility] LABS % Basophils 0.2 % [facility] LABS % Immature 0.2 % [facility] Granulocytes [facility] LABS Absolute 4.4 1.6 - 8.3 [facility] Neutrophil 10e9/L [facility] LABS Absolute 0.2 (L) 0.8 - 5.3 [facility] Lymphocytes 10e9/L [facility] LABS Absolute 0.3 0.0 - 1.3 [facility] Monocytes 10e9/L [facility] LABS Absolute 0.1 0.0 - 0.7 [facility] Eosinophils 10e9/L [facility] LABS Absolute 0.0 0.0 - 0.2 [facility] Basophils 10e9/L [facility] LABS Abs Immature 0.0 0 - 0.4 [facility] Granulocytes 10e9/L [facility] LABS Specimen Anatomical Collection Method Collection Time Receive d Time (Source) Location / / Volume Laterality Blood specimen 02/25/2014 10:53 4 (specimen) AM CDT 10:54 AM CDT Deysi Alicea MD LAB - BLOOD ORDERABLES Performing Organization Address City/State/ZIP Code Phon e Number [facility] [address] [place] [address] [facility] LABS documented in [...] hypotension documented in this encounter Care Teams Dust Mop Maker Relationship Specialty Start Date End Date Momo Forbes PCP - General Family Practice 01/02/[address] [address] Ingrid Santana, RN Registered Nurse Transplant 02/10/12 documented as of this encounter
--- OUTSIDE RECORDS SUMMARY | 2022-07-29 13:02 | XMS_ITS | Encounter Summary ---
:1950 Author Organization [place] Address [facility]0 [facility] [place] [address] Care Team Providers Name Role Phone Ingrid Santana RN Unavailable Unavailable Momo Forbes Primary Care Provider Encounter Details Date Type Department Care Team Description 03/01/2014 Orders Only Nephrology Shiva Kahn RN -donor kidney 2nd Floor, Clinic 2A [facility] transplant recipient Tommy Ruizfelisa [address] [place] [phone] Social History Tobacco Use Types Packs/Day Years [...] transplant documented in this encounter Care Teams Devil Tender Relationship Specialty Start Date End Date Momo Forbes PCP - General Family Practice 01/02/[address] [address] Ingrid Santana RN Registered Nurse Transplant 02/10/12 documented as of this encounter
--- OUTSIDE RECORDS SUMMARY | 2022-07-29 13:02 | XMS_ITS | Encounter Summary ---
:1950 Author Organization [place] Address [facility] [place] [address] Care Team Providers Name Role Phone Ingrid Santana RN Unavailable Unavailable Momo Forbes Primary Care Provider Encounter Details Date Type Department Care Team Description 03/14/2014 Orders Only Nephrology Shiva Kahn RN -donor kidney 2nd Floor, Clinic 2A [facility] transplant recipient Tommy Ruizfelisa [address] [place] [phone] Social History Tobacco Use Types Packs/Day Years [...] transplant documented in this encounter Care Teams Bus Escort Relationship Specialty Start Date End Date Momo Forebs PCP - General Family Practice 01/02/[address] [address] Ingrid Santana RN Registered Nurse Transplant 02/10/12 documented as of this encounter
--- OUTSIDE RECORDS SUMMARY | 2022-07-29 13:02 | XMS_ITS | Encounter Summary ---
:1950 Author Organization [place] Address [address] [place] [address] Care Team Providers Name Role Phone Ingrid Santana RN Unavailable Unavailable Momo Forbes Primary Care Provider Reason for Visit Reason Onset Date Comments Pre Visit Planning - Done 03/08/2014 Appointment on 03/11/2014 Encounter Details Date Type Department Care Team Description 03/08/2014 Telephone Nephrology Alexandria Caldera Pre Visit Planning - 2nd Floor, Clinic 2A [place] Done (Appointment on Tommy Wilburn 03/11/20 14) [address] [address] Social History Tobacco Use Types [...] bring list of medications. Toldpatient to call [phone] if any questions or needs to reschedule. Alexandria Caldera CMA documented in this encounter Plan of Treatment Not on filedocumented as of this encounter Visit Diagnoses Not on filedocumented in this encounter Care Teams Loan Adviser Relationship Specialty Start Date End Date Momo Forbes PCP - General Family Practice 01/02/14 [facility] [address] [place] [address] Ingrid Santana, RN Registered Nurse Transplant 02/10/12 documented as of this encounter
--- OUTSIDE RECORDS SUMMARY | 2022-07-29 13:02 | XMS_ITS | Encounter Summary ---
:1950 Author Organization [place] Address [address] [place] [address] Care Team Providers Name Role Phone Ingrid Santana RN Unavailable Unavailable Momo Forbes Primary Care Provider Encounter Details Date Type Department Care Team Description 03/22/2014 Orders Only [facility], [facility], [facility] jm [place] [address] [phone] [place] [address] [address] [place] [address] (Wo rk) Social History [...] Tacrolimus level (04/19/2014 8:40 AM CDT) [facility] Method Time Signature Tacrolimus Not Provided [facility] Last Dose [facility] Tacrolimus 10.3 5.0 - [facility] Level 15.0 ug/L [facility] Comment: Tacrolimus Reference Range Kidney [...] Phon e Number [facility] 500 [place], [place] [phone] [place] [address] [facility] Tacrolimus level (04/16/2014 8:22 AM CDT) [facility] gist Method Time Signature Tacrolimus Not Provided [facility] Last Dose [facility] Tacrolimus 9.1 5.0 - [facility] Level 15.0 ug/L [facility] Comment: Tacrolimus Reference Range Kidney [...] Phon e Number [facility] 500 [place], [place] [phone] [place] [address] [facility] Tacrolimus level (04/11/2014 8:40 AM CDT) [facility] gist Method Time Signature Tacrolimus Last 04/10/14 [facility] Dose 19:00 [facility] Tacrolimus 14.4 5.0 - [facility] Level 15.0 ug/L [facility] Comment: Tacrolimus Reference Range Kidney [...] Phon e Number [facility] 500 [place] [address] [facility] Tacrolimus level (04/09/2014 8:45 AM CDT) [facility] gist Method Time Signature Tacrolimus Last 04/08/14 [facility] Dose 2000 [facility] Tacrolimus 11.7 5.0 - [facility] Level 15.0 ug/L [facility] Comment: Tacrolimus Reference Range Kidney [...] Phon e Number [facility] 500 [place], [place] [phone] [place] [address] [facility] Tacrolimus level (04/05/2014 9:40 AM CDT) [facility] gist Method Time Signature Tacrolimus Last 1999 [facility] Dose 04/04/14 [facility] Tacrolimus 9.7 5.0 - [facility] Level 15.0 ug/L [facility] Comment: Tacrolimus Reference Range Kidney [...] Phon e Number [facility] 500 [place] [address] [facility] (ABNORMAL) Tacrolimus level (03/28/2014 8:30 AM CDT) [facility] gist Method Time Signature Tacrolimus Last 03/27/14 [facility] Dose 1900 [facility] Tacrolimus 15.8 (H) 5.0 - [facility] Level 15.0 ug/L [facility] Comment: Tacrolimus Reference Range Kidney [...] Phon e Number [facility] 500 [place] [address] [facility] Tacrolimus level (03/26/2014 9:18 AM CDT) [facility] gist Method Time Signature Tacrolimus Last 03/25/14 [facility] Dose 1900 [facility] Tacrolimus 9.2 5.0 - [facility] Level 15.0 ug/L [facility] Comment: Tacrolimus Reference Range Kidney [...] Phon e Number [facility] 500 [place], [place] [phone] [place] [address] [facility] Tacrolimus level (03/14/2014 9:00 AM CDT) [facility] gist Method Time Signature Tacrolimus Last 1999 [facility] Dose 03/13/14 [facility] Tacrolimus 9.5 5.0 - [facility] Level 15.0 ug/L [facility] Comment: Tacrolimus Reference Range Kidney [...] Organization Address City/State/ZIP Code Phon e Number [id number] [place] [address] LABS documented in this encounter Visit Diagnoses Not on filedocumented in this encounter Care Teams Ship Surveyor Relationship Specialty Start Date End Date Momo Forbes PCP - General Family Practice 01/02/14 [facility] 1999 [place] [address] Ingrid Santana, RN Registered Nurse Transplant 02/10/12 documented as of this encounter
--- OUTSIDE RECORDS SUMMARY | 2022-07-29 13:02 | XMS_ITS | Encounter Summary ---
:1950 Author Organization [place] Address [address] [facility] [place] [address] Care Team Providers Name Role Phone Ingrid Santana RN Unavailable Unavailable Momo Forbes Primary Care Provider Reason for Referral Specialty Diagnoses / Procedures Referred By Contact Refer red To Contact Migel Merchant MD [address] [facility] [address] [place], [place] [address] Referral ID Status Reason Start Date Expiration Date Visits Requ ested Visits Authorized Scheduling Instructions ANTICOAGULATION CLINIC COLLABORATIVE PRA CTICE AGREEMENT The following represents a collaborative practice agreement among the physicians of the Clinic and staff of the Anticoagulat ion Clinic Service ([facility]) Physicians shall: 1. Refer patients requiring anticoagulat ion to a specialty service staffed by personnel of Pharmacy Services and super vised by Clinic physicians. 2. Respond to questions and referrals fr pharmacy staff regarding delinquent or difficult patients. 3. Inform the [facility] staff when a new [...] of adverse or sub-therapeutic effects including at [facility] the following: Has the patient experienced [...] Department Care Team Description 03/29/[address] [facility] Migel Merchanta l fibrillation (H) (Primary Dx); Anticoagulation Clin ic MD Nathan correction (current) use of anticoagulant s [address] [facility] [address] [facility] 195 [phone] [place] [address] Social History Tobacco Use Types Packs/Day Years [...] Routine Atrial fibri llation (H) Ordered: 03/29/2014 [facility] (Current) Use Of Anticoagulants documented as of this encounter Visit Diagnoses Diagnosis Atrial fibrillation (H) - Primary Atrial fibrillation track oiler (current) use of anticoagulant s Long-term (current) use of anticoagulant s documented in this encounter Care Teams Stacker Attendant Relationship Specialty Start Date End Date Momo Forbes PCP - General Family Practice 01/02/14 [facility] [address] [place] [address] Ingrid Santana, RN Registered Nurse Transplant 02/10/12 documented as of this encounter
--- OUTSIDE RECORDS SUMMARY | 2022-07-29 13:02 | XMS_ITS | Encounter Summary ---
:1950 Author Organization [place] Address [address] [place] [address] Care Team Providers Name Role Phone Ingrid Santana RN Unavailable Unavailable Momo Forbes Primary Care Provider Encounter Details Date Type Department Care Team Description 03/15/2014 Hospital Encounter [facility] Susy Cole, Lymphocele Unit 2A [facility] [address] [place] [phone] [place], [place] [phone] (Wo rk) Social History Tobacco Use Types [...] until healed, wash daily with antibacterial soap. [facility] INTERVENTIONAL RADIOLOGY DEPARTMENT Procedure Physician Andrea Can Date of procedure Telephone numbers: [phone] Tuesday-Tuesday 8:00 am to 4:30 pm [phone] After 4:30 pm Tuesday-Tuesday, Weekends & Holidays. Ask for the Interventional Radiologist immigration case worker. Someone is available 24 hours/day [facility] toll free number: Tuesday-Tuesday 8:00 am to [...] CCRN March 15, 2014 9:20 AM Pager: [phone] [facility] - 03/15/2014 8:58 AM CDT Discussed order with Dr Merchant today. He would like drain placement if the fluid appears thin. If itappears to be a hematoma then aspiration only. D/w [facility] resident and IR staff doing the case. 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 Yossi Cox Resident: Dr. Drea Glasgow Magazine Grinder Loader: Andrea Gibbons PA-C. Medications: 1% lidocaine and [...] Dr. Yossi Cox Resident: Dr. Drea Glasgow Magazine Grinder Loader: Andrea Gibbons PA-C. Medications: 1% lidocaine and [...] Ref Test Analysis Performed At [facility] Range Method Time Signature Specimen Aspirate [facility] Gram Stain Many PMNs seen [facility] No organisms seen MICROBIOLOGY Micro Report FINAL [facility] Status 03/15/2014 MICROBIOLOGY Specimen Anatomical Collection Method Collection Time Receive d Time (Source) Location / / Volume Laterality 03/15/2014 9:05 AM 4 9:59 CDT AM CDT Celina Cole MD LAB - MICRO GENERAL ORDERABL ES Performing Organization Address City/[facility]/ZIP Code Phon e Number [facility] [address] LABS [facility] MICROBIOLOGY (ABNORMAL) Fluid Culture (03/15/2014 9:05 AM CDT) Component Value Ref Test Analysis Performed At Patholo gist Range Method Time Signature Specimen Aspirate [facility] Description [facility]S Culture Micro Light growth Coagulase [...] MICRO GENERAL ORDERABL ES Performing Organization Address City/[facility]/ZIP Code Phon e Number [address] LABS [facility] MICROBIOLOGY Triglyceride Fluid (03/15/2014 9:05 AM CDT) Patholo gist Method Time Signature Triglyceride Aspirate [facility] Fluid Source [facility] Triglyceride 94 mg/dL [facility] Fluid [facility] LABS Comment: No reference ranges have [...] - BODY FLUIDS ORDERABLES Performing Organization Address City/[facility]/ZIP Code Phon e Number [address] [place] [address] [facility] Cell count with differential fluid (03/15/2014 9:05 AM CDT) Component Value Ref Test Analysis Performed At [facility] Range Method Time Signature Body Fluid Aspirate [facility] Analysis Source [facility] Color Fluid Brown [facility] LABS Appearance Turbid [facility] Fluid [facility] LABS RBC Fluid << Do Not /uL [facility] Report >> [facility] LABS WBC Fluid 64521 /uL [facility] LAB[facility] % Neutrophils 97 % [facility] Fluid [facility] LABS % Lymphocytes 2 % [facility] Fluid [facility] LABS % Eosinophils 1 % [facility] Fluid [facility] LABS Specimen Anatomical Collection Method Collection Time Receive d Time (Source) Location / / Volume Laterality SPECIMEN OBTAINED 03/15/2014 9:05 AM 02/20 9:56 BY ASPIRATION / CDT AM CDT Unknown Celina Cole MD LAB - BODY FLUIDS ORDERABLES Performing Organization Address City/State/ZIP Code Phon e Number [facility] [address] LABS Lactate dehydrogenase fluid (03/15/2014 9:05 AM CDT) Component Value Ref Test Analysis Performed At [facility] Range Method Time Signature LD Fluid Source Aspirate [facility] LABS Lactate Canceled, Test credited [...] Phon e Number [facility] 500 [place], [place] [phone] [place] [address] LABS Creatinine fluid (03/15/2014 9:05 AM CDT) [facility] Method Time Signature Creatinine Aspirate [facility] Fluid Source [facility] LABS Creatinine 1.5 mg/dL [facility] LABS Comment: No reference ranges have [...] - BODY FLUIDS ORDERABLES Performing Organization Address City/[facility]/ZIP Code Phon e Number [facility] 500 [place] [address] [facility] LABS INR point of care (03/15/2014 [...] [facility]/ZIP Code Phon e Number [facility] [...] LAB - BEAKER POCT Performing Organization Address City/[facility]/ZIP Code Phon e Number [facility] [...] Jeanette Lopez RN) Routine, 3 g, Intravenous, PRE-OP/PRE-MN OCEDURE, Starting on Tue03/15/14 at 0734, For [...] Intra-procedure documented in this encounter Care Teams Pharmacist Assistant Relationship Specialty Start Date End Date Momo Forbes PCP - General Family Practice 01/02/[address] [address] Ingrid Santana, RN Registered Nurse Transplant 02/10/12 documented as of this encounter
--- OUTSIDE RECORDS SUMMARY | 2022-07-29 13:02 | XMS_ITS | Encounter Summary ---
:1950 Author Organization [place] Address [address] [place] [address] Care Team Providers Name Role Phone Ingrid Santana RN Unavailable Unavailable Momo Forbes Primary Care Provider Encounter Details Date Type Department Care Team Description 02/19/2014 Orders Only [facility], [facility] jm [place] [address] [phone] [place] [address] 575 [place] [address] (Wo rk) Social History Tobacco [...] Results Tacrolimus level (03/19/2014 9:05 AM CDT) [facility] Method Time Signature Tacrolimus Last 03/18/14 [facility] Dose [address] [facility] Tacrolimus 13.1 5.0 - [facility] Level 15.0 ug/L [facility] [...] e Number [facility] 500 [place] [address] [facility] Tacrolimus level (03/12/2014 9:40 AM CDT) [facility] gist Method Time Signature Tacrolimus Not Provided [facility] Last Dose [facility] Tacrolimus 7.3 5.0 - [facility] Level 15.0 ug/L [facility] [...] e Number [facility] 500 [place] [address] [facility] Tacrolimus level (03/08/2014 10:15 AM CDT) [facility] gist Method Time Signature Tacrolimus Last 03/07/14 [facility] Dose 2000 [facility] Tacrolimus 6.1 5.0 - [facility] Level 15.0 ug/L [facility] [...] e Number [facility] 500 [place], [place] [phone] [place] [address] [facility] Tacrolimus level (03/06/2014 5:13 PM CDT) [facility] gist Method Time Signature Tacrolimus Last 1400 [facility] Dose 03/05/14 [facility] Tacrolimus 11.3 5.0 - [facility] Level 15.0 ug/L [facility] [...] e Number [facility] 500 [place] [address] [facility] Tacrolimus level (03/01/2014 8:10 AM CDT) [facility] gist Method Time Signature Tacrolimus Last 02/28/14 [facility] Dose 1930 [facility] Tacrolimus 10.6 5.0 - [facility] Level 15.0 ug/L [facility] [...] e Number [facility] 500 [place], [place] [phone] [place] [address] [facility] Tacrolimus level (02/27/2014 8:15 AM CDT) [facility] gist Method Time Signature Tacrolimus Last 02/26/14 [facility] Dose 2000 [facility] LABS Tacrolimus 11.4 5.0 - [facility] Level 15.0 ug/L [facility] [...] e Number [facility] 500 [place], [place] [phone] [place] [address] LABS HLA Lukasz Class II Single Antigen (02/25/2014 10:43 AM CDT) Component Value Ref Test Analysis Performed At [facility] Range Method Time Signature SA2 Test [...] Phon e Number [facility] Immunology/Histocompatabil [place], [place] [address] [facility] [address] [facility] [address] [facility], Room 3-580 HISTOTRAC HLA Lukasz Class I Single Antigen (02/25/2014 10:43 AM CDT) Component Value Ref Test Analysis Performed At [facility] [employer] Range Method Time Signature SA1 Test SA [...] LAB - IMMUNOLOGY ORDERABLES Performing Organization Address City/[facility]/ZIP Code Phon e Number [facility] Immunology/[place], [place] [address] [facility] 500 [facility] [address] [facility] Room 3-580 HISTOTRAC PRA Interfering Substance SCR (02/25/2014 10:43 AM CDT) Component Value Ref Test Analysis Performed At [facility] [employer] Method Time Signature Interfering [employer] HISTOTRAC Substance [...] LAB - IMMUNOLOGY ORDERABLES Performing Organization Address City/[facility]/ZIP Code Phon e Number [facility] Immunology/[place], [place] [address] [facility] 500 [facility] [address] [facility], Room 3-580 HISTOTRAC Tacrolimus level (02/21/2014 8:45 AM CDT) [facility] [employer] Method Time Signature Tacrolimus Last 02/20/14 [facility] Dose 2000 [facility] LABS Tacrolimus 7.9 5.0 - [facility] Level 15.0 ug/L [facility] [...] e Number [facility] 500 [place] [address] [facility] LABS documented in this encounter Visit Diagnoses Not on filedocumented in this encounter Care Teams Range Management Specialist Relationship Specialty Start Date End Date Momo Forbes PCP - General Family Practice 01/02/14 [place] [id number] Ingrid Santana, RN Registered Nurse Transplant 02/10/12 documented as of this encounter
--- OUTSIDE RECORDS SUMMARY | 2022-07-29 13:02 | XMS_ITS | Encounter Summary ---
:1950 Author Organization [place] Address [facility] [place] [address] Care Team Providers Name Role Phone Ingrid Santana RN Unavailable Unavailable Momo Forbes Primary Care Provider Reason for Visit Reason Onset Date Comments Patient Reminder 03/26/2014 Encounter Details Date Type Department Care Team Description 03/26/2014 Telephone Nephrology Yesenia Clements LPN Patient Reminder 2nd Floor, Clinic [address] [phone] Social History Tobacco Use [...] on filedocumented in this encounter Care Teams Registration Representative Relationship Specialty Start Date End Date Momo Forbes PCP - General Family Practice 01/02/14 [facility] 2000 [place] [address] Ingrid Santana, RN Registered Nurse Transplant 02/10/12 documented as of this encounter
--- OUTSIDE RECORDS SUMMARY | 2022-07-29 13:02 | XMS_ITS | Encounter Summary ---
:1950 Author Organization [place] Address [facility] [place] [address] Care Team Providers Name Role Phone Ingrid Santana RN Unavailable Unavailable Momo Forbes Primary Care Provider Encounter Details Date Type Department Care Team Description 03/19/2014 Orders Only Nephrology Shiva Kahn RN -donor kidney 2nd Floor, Clinic 2A [facility] transplant recipient Tommy Ruizfelisa [address] [place] [phone] Social History Tobacco Use Types Packs/Day Years [...] transplant documented in this encounter Care Teams Silverer Relationship Specialty Start Date End Date Momo Forbes PCP - General Family Practice 01/02/[address] [address] Ingrid Santana RN Registered Nurse Transplant 02/10/12 documented as of this encounter
--- OUTSIDE RECORDS SUMMARY | 2022-07-29 13:02 | XMS_ITS | Encounter Summary ---
:1950 Author Organization [place] Address [address] [place] [address]. [place] [address] Care Team Providers Name Role Phone Ingrid Santana RN Unavailable Unavailable Momo Forbes Primary Care Provider Encounter Details Date Type Department Care Team Description 03/11/2014 Orders Only Transplant Surgery Celina Cole (Primary Clinic A, Dx) 2nd Floor, Clinic 2A [address] [address] [facility] [place] [phone] Social History Tobacco Use Types [...] channels documented in this encounter Care Teams Paper Coater Relationship Specialty Start Date End Date Momo Forbes PCP - General Family Practice 01/02/14 [facility] [address] [place] [address] Ingrid Santana RN Registered Nurse Transplant 02/10/12 documented as of this encounter
--- OUTSIDE RECORDS SUMMARY | 2022-07-29 13:02 | XMS_ITS | Encounter Summary ---
:1950 Author Organization [place] Address [address] [place] [address] Care Team Providers Name Role Phone Ingrid Santana RN Unavailable Unavailable Momo Forbes Primary Care Provider Reason for Visit Auth/Cert - Closed Specialty Diagnoses / Procedures Referred By Contact Refer red To Contact Surgery Diagnoses S/P Kidney Transplant Uu Periop Procedures COMBINED CYSTOSCOPY, REMOVE STENT(S) 500 [place] [address] Phone: Fax: Referral ID Status Reason Start Date Expiration Date Visits Requ ested Visits Authorized [id number] Closed 1 1 Encounter Details Date Type Department Care Team Description 04/01/2014 Hospital Encounter [facility] [place], Migel Evans, Same Day Surgery East [address] 500 [facility] 195 [place] [address] [place] [address] (Wo rk) Social History Tobacco Use Types [...] Scott RN - 04/01/2014 10:15 AM CDT [facility], [place] Same-Day Surgery Adult Discharge Orders & Instructions [...] To contact a doctor, call or: ??? [phone] and ask for the resident distribution systems superintendent for (answered 24 hours a day) ??? Emergency Department: [facility]: [phone] (TTY for hearing impaired: [phone]) documented in this encounter Medications at Time [...] Value Ref Test Analysis Performed At [facility] gist Range Method Time Signature Specimen Unspecified [facility] Urine CAMPUS LABS Special Specimen [facility] Requests [...] Address City/State/ZIP Code Phon e Number [address] [address] [facility] LABS [facility] MICROBIOLOGY (ABNORMAL) UA with Microscopic (04/01/2014 9:00 AM CDT) Component Value Ref Test Analysis Performed At [facility] gist Range Method Time Signature Color Urine Yellow [facility] LABS Appearance Urine Clear [facility]S Glucose Urine 30 (A) NEG [facility] mg/dL UNIVERSITY CAMPUS LABS Bilirubin Urine Negative NEG [facility] LABS Ketones Urine Negative NEG [facility] mg/dL UNIVERSITY CAMPUS LABS Specific [place] 1.017 1.003 - [facility] Urine 1.035 UNIVERSITY CAMPUS LABS Blood Urine Moderate (A) NEG [facility]IV[facility] CAMP[facility] LABS pH Urine 6.0 5.0 - [facility] 7.0 pH UNIVERSITY [place] LABS Protein Albumin 10 (A) NEG [facility] Urine mg/dL UNIVERSITY [place] LABS Urobilinogen Normal 0.0 - [facility] mg/dL 2.0 [place] mg/dL [place] LABS Nitrite Urine Negative NEG [facility]IV[facility] LABS Leukocyte Negative NEG [facility] Esterase Urine UNIV[facility]ITY [place] LABS Source Unspecified [facility] Urine UNIVERSITY CAMPUS [...] LAB - URINE ORDERABLES Performing Organization Address City/[facility]/ZIP Code Phon e Number [address] LABS (ABNORMAL) INR (04/01/2014 8:36 AM CDT) P athologist Signature INR 1.64 (H) 0.86 - 1.14 [facility] LABS Specimen Anatomical Collection Method Collection Time Receive d Time (Source) Location / / Volume Laterality Blood specimen 04/01/2014 8:36 AM 014 8:41 (specimen) CDT AM CDT Momo Jimenez MD LAB - BLOOD ORDERABLES Performing Organization Address City/[facility]/ZIP Code Phon e Number [facility] [address] LABS EKG 12-lead, tracing only (04/01/2014 8:28 AM CDT) Patholo gist Method Time Signature Interpretation ECG Click View RADIOLOGY Image link RESULTS to view waveform and result Specimen (Source) Anatomical Collection Method Collection Time Re ceived Time Location / / Volume Laterality 04/01/2014 8:28 AM CDT Momo Jimenez MD ECG ORDERABLES Performing Organization Address City/[facility]/ZIP Code Phon e Number RADIOLOGY RESULTS Potassium (04/01/2014 8:11 AM CDT) athologist Signature Potassium 4.1 3.4 - 5.3 [facility] mmol/L [place] LABS Specimen Anatomical Collection Method Collection Time Receive d Time (Source) Location / / Volume Laterality Blood specimen 04/01/2014 8:11 AM 014 8:27 (specimen) CDT AM CDT Momo Jimenez MD LAB - BLOOD ORDERABLES Performing Organization Address [facility]/ZIP Code Phon e Number [address] LABS (ABNORMAL) Hemoglobin (04/01/2014 8:11 AM CDT) athologist Signature Hemoglobin 10.2 (L) 13.3 - [facility] 17.7 g/dL [place] LABS Specimen Anatomical Collection Method Collection Time Receive d Time (Source) Location / / Volume Laterality Blood specimen 04/01/2014 8:11 AM 014 8:27 (specimen) CDT AM CDT Momo Jimenez MD LAB - BLOOD ORDERABLES Performing Organization Address City/[facility]/ZIP Code Phon e Number [address] LABS (ABNORMAL) Glucose by meter (04/01/2014 8:02 AM CDT) athologist Signature Glucose 158 (H) 60 - 99 POINT OF CARE mg/dL TEST, GLUCOSE Specimen Anatomical Collection Method Collection Time Receive d Time (Source) Location / / Volume Laterality 04/01/2014 8:02 AM 4 8:05 CDT AM CDT Migel Merchant MD LAB - BEAKER POCT Performing Organization Address City/[facility]/ZIP Code Phon e Number [facility] POINT OF CARE TEST, GLUCOSE POINT OF CARE TEST, GLUCOSE documented in this encounter Visit Diagnoses Not on filedocumented in this encounter Active and Recently Administered Medications Times are shown in CDT. Scheduled Medication Order 03/30/2014 03/31/2014 04/01/2014 levofloxacin (LEVAQUIN) IVPB 500 mg (COMPLETED) 0850 (Given - Provider: Addis Brannon APRN CLEANER AND POLISHER - Comment: Asked by Fellow to give [...] Intra-procedure documented in this encounter Care Teams Mcat Tutor Relationship Specialty Start Date End Date Momo Forbes PCP - General Family Practice 01/02/14 [place] [id number] Ingrid Santana, RN Registered Nurse Transplant 02/10/12 documented as of this encounter
--- OUTSIDE RECORDS SUMMARY | 2022-07-29 13:02 | XMS_ITS | Encounter Summary ---
:1950 Author Organization [place] Address [facility] [place] [place] [address] Care Team Providers Name Role Phone Ingrid Santana RN Unavailable Unavailable Momo Forbes Primary Care Provider Reason for Visit Reason Onset Date Comments Pt. Information/instruction 03/14/2014 Encounter Details Date Type Department Care Team Description 03/14/[address] [facility] Beto Womack Pt . Interventional Radio martha Dangelo RN Information/instructio 500 [place] [phone] Social History Tobacco Use Types Packs/Day Years [...] on filedocumented in this encounter Care Teams Recruiting Internship Relationship Specialty Start Date End Date Momo Forbes PCP - General Family Practice 01/02/14 [facility] 1999 [place] [address] Ingrid Santana RN Registered Nurse Transplant 02/10/12 documented as of this encounter
--- OUTSIDE RECORDS SUMMARY | 2022-07-29 13:02 | XMS_ITS | Encounter Summary ---
:1950 Author Organization [place] Address [address] [place] [address] Care Team Providers Name Role Phone Ingrid Santana RN Unavailable Unavailable Momo Forbes Primary Care Provider Reason for Visit Reason Onset Date Comments Anticoagulation 03/29/2014 Encounter Details Date Type Department Care Team Description 03/29/2014 Telephone [facility] Mary Sheffield RN Anticoagulation Anticoagulation Clin [place] [phone] Social History Tobacco Use Types Packs/Day [...] \this patient. He has INRs done at [facility] He takes Warfarin 5 mg daily He developed Afib after surgery . He sees cardiologylater this month to determine if the Warfarin can be stopped. He is having a stent removed on Tuesday04/01/14 Spoke with the Oncall Dr Perez no need to stop Warfarin INR yesterday at [facility] was 1[address] Kahn Instructed patient's to give 7.5 mg tonight and then 5 mg Sat , Sun Conservative increase since we do not know how quickly he responds. He is having the procedure on Tuesday. documented in this encounter Plan of Treatment Not on filedocumented as of this encounter Visit Diagnoses Not on filedocumented in this encounter Care Teams Graphotype Operator Relationship Specialty Start Date End Date Momo Forbes PCP - General Family Practice 01/02/[address] [address] Ingrid Santana, RN Registered Nurse Transplant 02/10/12 documented as of this encounter
--- OUTSIDE RECORDS SUMMARY | 2022-07-29 13:02 | XMS_ITS | Encounter Summary ---
:1950 Author Organization [place] Address [address] [place] [address] Care Team Providers Name Role Phone Ingrid Santana RN Unavailable Unavailable Momo Forbes Primary Care Provider Reason for Visit Reason Onset Date Comments Transplant 03/08/2014 Elevated tacrolimus level Encounter Details Date Type Department Care Team Description 03/08/2014 Telephone Nephrology Jeff Giordano (Elevated 2nd Floor, Clinic 2A Almita Palomino RN tacrolimus level) Tommy Wilburn [address] [phone] Social History Tobacco Use Types Packs/Day Years [...] repeat the level. Leonor Giordano R.N. - [phone] documented in this encounter Plan of Treatment Not on filedocumented as of this encounter Visit Diagnoses Not on filedocumented in this encounter Care Teams State Pilot Relationship Specialty Start Date End Date Momo Forbes PCP - General Family Practice 01/02/[address] [address] Ingrid Santana, RN Registered Nurse Transplant 02/10/12 documented as of this encounter
--- OUTSIDE RECORDS SUMMARY | 2022-07-29 13:02 | XMS_ITS | Encounter Summary ---
:1950 Author Organization [place] Address [address] [place] [address]. [place] [address] Care Team Providers Name Role Phone Ingrid Santana RN Unavailable Unavailable Momo Forbes Primary Care Provider Encounter Details Date Type Department Care Team Description 03/13/2014 Orders Only Nephrology Shiva Kahn, Atrial fibrillation (H); 2nd Floor, Clinic 2A RN -donor kidney transplant recipie nt Tommy Wilburn [address] [phone] Social History Tobacco Use Types Packs/Day Years [...] transplant documented in this encounter Care Teams Deliverer Outside Relationship Specialty Start Date End Date Momo Forbes PCP - General Family Practice 01/02/14 [facility] [address] [place] [address] Ingrid Santana RN Registered Nurse Transplant 02/10/12 documented as of this encounter
--- OUTSIDE RECORDS SUMMARY | 2022-07-29 13:02 | XMS_ITS | Encounter Summary ---
:1950 Author Organization [place] Address [facility] [place] [address] Care Team Providers Name Role Phone Ingrid Santana RN Unavailable Unavailable Momo Forbes Primary Care Provider Encounter Details Date Type Department Care Team Description 03/18/2014 Orders Only Nephrology Shiva Kahn RN -donor kidney 2nd Floor, Clinic 2A [facility] transplant recipient Tommy Ruizfelisa [address] [place] [phone] Social History Tobacco Use Types Packs/Day Years [...] transplant documented in this encounter Care Teams Coating Operator Relationship Specialty Start Date End Date Momo Forbes PCP - General Family Practice 01/02/[address] [address] Ingrid Santana RN Registered Nurse Transplant 02/10/12 documented as of this encounter
--- OUTSIDE RECORDS SUMMARY | 2022-07-29 13:02 | XMS_ITS | Encounter Summary ---
:1950 Author Organization [place] Address [address] [place] [address] Care Team Providers Name Role Phone Ingrid Santana RN Unavailable Unavailable Momo Forbes Primary Care Provider Reason for Visit Auth/Cert - Closed Specialty Diagnoses / Procedures Referred By Contact Refer red To Contact Surgery Diagnoses Status Post Kidney Transplant Uu Periop Procedures COMBINED CYSTOSCOPY, REMOVE STENT(S) 500 [place] [address] Phone: Fax: Referral ID Status Reason Start Date Expiration Date Visits Requ ested Visits Authorized [id number] Closed 1 1 Encounter Details Date Type Department Care Team Description 03/11/2014 Hospital Encounter [facility] Migel Merchant, Same Day Surgery East [address] 500 [facility] 195 [place] [address] [place] [address] (Wo rk) Social History Tobacco Use Types [...] 8:46 CDT AM CDT Migel Merchant MD [facility] POCT Performing Organization Address City/State/ZIP Code Phon e Number [facility] POINT OF CARE TEST, GLUCOSE POINT OF CARE TEST, GLUCOSE documented in this encounter Visit Diagnoses Not on filedocumented in this encounter Active and Recently Administered Medications Care Teams Training Project Manager Relationship Specialty Start Date End Date Momo Forbes PCP - General Family Practice 01/02/14 [facility] [address] [place] [address] Ingrid Santana, RN Registered Nurse Transplant 02/10/12 documented as of this encounter
--- OUTSIDE RECORDS SUMMARY | 2022-07-29 13:02 | XMS_ITS | Encounter Summary ---
:1950 Author Organization [place] Address [facility] [place] [address] Care Team Providers Name Role Phone Ingrid Santana RN Unavailable Unavailable Momo Forbes Primary Care Provider Reason for Visit Reason Comments RECHECK s/p kidney tx Auth/Cert - Closed Specialty Diagnoses / Procedures Referred By Contact Refer red To Contact Surgery Diagnoses S/P Kidney Transplant Uu Periop Procedures COMBINED CYSTOSCOPY, REMOVE STENT(S) 500 [place] [address] Phone: Fax: Referral ID Status Reason Start Date Expiration Date Visits Requ ested Visits Authorized [id number] Closed 1 1 Encounter Details Date Type Department Care Team Description 04/01/2014 Office Visit Nephrology Deysi Alicea Immunosuppressed status (H) (Primary Dx); 2nd Floor, Clinic MD Aline High risk medication use; 2A [facility] Kidney replaced by homeroan t; Tommy DOMÍNGUEZ S/P kidney transplant [place] [address] [place] [address] [place], [place] (Work) [phone] Social History Tobacco Use Types Packs/Day Years [...] -no follow up, I will ask his nursing coordinator to obtain results from his local [...] at home regularly; BP checked by me [id number]; HE was previously on Metoprolol 12.5 mg [...] Years of Education: 14 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
--- OUTSIDE RECORDS SUMMARY | 2022-07-29 13:02 | XMS_ITS | Encounter Summary ---
:1950 Author Organization [place] Address [address] [place] [address] Care Team Providers Name Role Phone Ingrid Santana RN Unavailable Unavailable Momo Forbes Primary Care Provider Reason for Visit Reason Onset Date Comments Refill Request 03/04/2014Aug Encounter Details Date Type Department Care Team Description 03/04/2014 Refill The Transplant Kaitlynn Moreno MD Refill Request 2nd Floor, Clinic 2A [facility] ([facility]) [address] [address] [place], [place] [phone] (Wo rk) [address] [phone] Social History Tobacco Use Types Packs/Day Years [...] Fill Date: 02/08/14 Quantity: 60 [facility] [phone] documented in this encounter Plan of Treatment Not on filedocumented as of this encounter Visit Diagnoses Diagnosis Atrial fibrillation (H) Atrial fibrillation documented in this encounter Care Teams Ict Customer Support Officer Relationship Specialty Start Date End Date Momo Forbes PCP - General Family Practice 01/02/14 [facility] 1999 [place] [phone] Ingrid Santana, RN Registered Nurse Transplant 02/10/12 documented as of this encounter
--- OUTSIDE RECORDS SUMMARY | 2022-07-29 13:02 | XMS_ITS | Encounter Summary ---
:1950 Author Organization [place] Address [address] [place] [address] Care Team Providers Name Role Phone Ingrid Santana RN Unavailable Unavailable Momo Forbes Primary Care Provider Reason for Visit Reason Onset Date Comments Previsit 02/20/2014 Encounter Details Date Type Department Care Team Description 02/20/2014 Telephone Transplant Surgery C nanda Merchant, Migel Evans MD Previsit 2nd Floor, Clinic 2A [address] [address] [facility] [place] [phone] Social History Tobacco Use Types Packs/Day Years [...] Stamper Relationship Specialty Start Date End Date Momo Forbes PCP - General Family Practice 01/02/14 [facility] 1999 [place] [phone] Ingrid Santaan, RN Registered Nurse Transplant 02/10/12 documented as of this encounter
--- OUTSIDE RECORDS SUMMARY | 2022-07-29 13:03 | XMS_ITS | Encounter Summary ---
:1950 Author Organization [place] Address [address] [place] [address]. [place] [address] Care Team Providers Name Role Phone Ingrid [...] 12-lead, tracing only (02/18/2014 9:53 AM CDT) [facility] gist Method Time Signature Interpretation [...] filedocumented in this encounter Care Teams Cloth Bleaching Supervisor Relationship Specialty Start Date End Date Momo Forbse PCP - General Family Practice 01/02/14 [facility] [address] [place] [address] Ingrid Santana, RN Registered Nurse Transplant 02/10/12 documented as of this encounter
--- OUTSIDE RECORDS SUMMARY | 2022-07-29 13:03 | XMS_ITS | Encounter Summary ---
:1950 Author Organization [place] Address [facility] [place] [address] Care Team Providers Name Role Phone Ingrid Santana RN Unavailable Unavailable Momo Forbes Primary Care Provider Reason for Visit Reason Comments Surgical Followup Post op for kidney transplan t POD 16 Encounter Details Date Type Department Care Team Description 02/18/2014 Office Visit Transplant Surgery Migel Merchant S/P jaamri y transplant (Primary Dx); Clinic MD Nathan Postop check; 2nd Floor, Clinic 2A [address] [place] Immunosuppression (H); [facility] 1 95 Atrial fibrillation (H) [phone] [place] [address] [place], [place] (Work) [phone] Social History Tobacco Use [...] fibrillation documented in this encounter Care Teams Bulk Station Operator Relationship Specialty Start Date End Date Momo Forbes PCP - General Family Practice 01/02/[address] [address] Ingrid Santana, RN Registered Nurse Transplant 02/10/12 documented as of this encounter
--- OUTSIDE RECORDS SUMMARY | 2022-07-29 13:03 | XMS_ITS | Encounter Summary ---
:1950 Author Organization [place] Address [facility] [place] [address] Care Team Providers Name Role Phone Ingrid Santana RN Unavailable Unavailable Momo Forbes Primary Care Provider Encounter Details Date Type Department Care Team Description 02/15/2014 Orders Only Nephrology Shiva Kahn RN Kidney replaced by transplant; 2nd Floor, Clinic 2A [employer] S/P kidney transplant Tommy [address] [phone] Social History Tobacco Use Types Packs/Day Years [...] transplant documented in this encounter Care Teams Negative Cutter Relationship Specialty Start Date End Date Momo Forbes PCP - General Family Practice 01/02/14 [facility] [address] [place] [address] Ingrid Santana RN Registered Nurse Transplant 02/10/12 documented as of this encounter
--- OUTSIDE RECORDS SUMMARY | 2022-07-29 13:03 | XMS_ITS | Encounter Summary ---
:1950 Author Organization [place] Address [facility] [place] [address] Care Team Providers Name Role Phone Ingrid Santana RN Unavailable Unavailable Momo Forbes Primary Care Provider Reason for Visit Reason Comments Eval/Assessment LBA Encounter Details Date Type Department Care Team Description 02/11/2014 Infusion Therapy Specialty Infusion Finger, Migel Mac y replaced by Visit and Procedure MD Nathan transplant (Primary Center [address] [place] [address] Dx) [facility] [place] [address] 5 [facility] 2nd Floor [address] [phone] [place], [place] (Work) [phone] Social History Tobacco Use [...] Dear Diego Guthrie Thank you for choosing [facility] ([facility]) for your transplant cares. The [...] regarding the result at your appointment in [facility] tomorrow. We look forward in seeing you on your next appointment here at [facility]. Please don???t hesitate to callus at [phone] to reschedule any of your appointments or to speak with one of the [facility] registered nurses. It was a pleasure taking care of you today. Sincerely, Gladis Olvera RN [facility] [address] [place] [address]. [place] [address] documented in this encounter Progress Notes Gladis Olvera RN - 02/11/2014 8:43 AM CDT Diego Guthrie came to [facility] today for a lab and assess following a Kidney transplant on 02/02/14. Discharge date: 02/08/14 hall coordinator: Leandro Kahn Phone number patient can be reached at: [phone] Physical Assessment: See physical assessment located under Document Flowsheets. Incision site: Dry dressing with modesta. Dressing changed. Small amt oozing, Small amt ecchymosis. Pt instructed on signs/symptoms of infection. Some swelling under incision, pt has known hematoma andwill have a renal ultrasound today at 2pm. Lines: MARGARET drain to bulb suction, serosanguinous drainage. 20 ml at [facility] appointment today. Gibbs: n/a Urine clarity: clear per patient report Hydration: discussed drinking 2-3 L daily Nutrition: Pt states appetite is improving Last BM: 02/10/14 evening Pain: 2 at rest, 5 with activity. Pain adequately controlled with home medications Laboratory tests: Standard labs drawn. Plan of care for today: Pt presents to [facility] for Labs & Assessment following Kid Txp on 02/02/14. Pt's creatinine up to 1.97 today, but ok per Dr. Leon considering the complications with transplant. Hgb 7.4 and pt c/o slight fatigue. Discussed with Dr. Leon and will hold off on a transfusion for now, but will continue to monitor hgb at [facility] appointments over the next 2 days. INR 2.23, EKG obtained and pt found to be in Normal Sinus Rhythm. Pt will remain on coumadin for now and will follow up with a fur sewer near [facility]. Continue daily INRs while pt is coming to [facility]. Pt's MARGARET continues to drain [...] Discharge Plan Pt will follow up with [facility] tomorrow. 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 verbalized understanding, all questions answered: YES Discharged [...] Results Tacrolimus level (02/11/2014 7:40 AM CDT) [facility] gist Method Time Signature Tacrolimus Last 02/10/14 [facility] Dose 2000 [facility] LABS Tacrolimus 12.2 5.0 - [facility] Level 15.0 ug/L [facility] [...] e Number [facility] [address] [place], [place] [phone] [place] [address] LABS (ABNORMAL) CBC with platelets differential (02/11/2014 7:40 AM CDT) [facility] gist Method Time Signature WBC 4.4 4.0 - [facility] 11.0 [facility] 10e9/L [place] LABS RBC Count 2.39 (L) 4.4 - 5.9 [facility] 10e12/L [facility] LABS Hemoglobin 7.4 (L) 13.3 - [facility] 17.7 g/dL [facility] LABS Hematocrit 22.1 (L) 40.0 - [facility] 53.0 % [facility] LABS MCV 93 78 - 100 [facility] fl [facility] LABS MCH 31.0 26.5 - [facility] 33.0 pg [facility] LABS MCHC 33.5 31.5 - [facility] 36.5 g/dL [facility] LABS RDW 14.7 10.0 - [facility] 15.0 % [facility]S Platelet Count 83 (L) 150 - 450 [facility] 10e9/L [facility] LABS Diff Method Automated [facility] Method [facility] LABS % Neutrophils 80.4 % [facility] LABS % Lymphocytes 8.2 % [facility] LABS % Monocytes 5.2 % [facility] LABS % Eosinophils 5.7 % [facility] LABS % Basophils 0.0 % [facility] LABS % Immature 0.5 % [facility] Granulocytes [facility] LABS Absolute 3.5 1.6 - 8.3 [facility] Neutrophil 10e9/L [facility] Absolute 0.4 (L) 0.8 - 5.3 [facility] Lymphocytes 10e9/L [facility] Absolute 0.2 0.0 - 1.3 [facility] Monocytes 10e9/L [facility] Absolute 0.3 0.0 - 0.7 [facility] Eosinophils 10e9/L [facility] Absolute 0.0 0.0 - 0.2 [facility] Basophils 10e9/L [facility] LABS Abs Immature 0.0 0 - 0.4 [facility] Granulocytes 10e9/L [facility] LABS Specimen Anatomical Collection Method Collection Time Receive d Time (Source) Location / / Volume Laterality Blood specimen 02/11/2014 7:40 AM 014 7:41 (specimen) CDT AM CDT Kaitlynn Leon MD LAB - BLOOD ORDERABLES Performing Organization Address City/[facility]/ZIP Code Phon e Number [facility] [address] LABS (ABNORMAL) Phosphorus (02/11/2014 7:40 AM CDT) athologist Signature Phosphorus 1.9 (L) 2.5 - 4.5 [facility] mg/dL [place] LABS Specimen Anatomical Collection Method Collection Time Receive d Time (Source) Location / / Volume Laterality Blood specimen 02/11/2014 7:40 AM 014 7:41 (specimen) CDT AM CDT Kaitlynn Leon MD LAB - BLOOD ORDERABLES Performing Organization Address City/[facility]/ZIP Code Phon e Number [address] LABS Magnesium (02/11/2014 7:40 AM CDT) athologist Signature Magnesium 1.9 1.6 - 2.3 [facility] mg/dL [place] LABS Specimen Anatomical Collection Method Collection Time Receive d Time (Source) Location / / Volume Laterality Blood specimen 02/11/2014 7:40 AM 014 7:41 (specimen) CDT AM CDT Kaitlynn Leon MD LAB - BLOOD ORDERABLES Performing Organization Address City/[facility]/ZIP Code Phon e Number [address] LABS (ABNORMAL) Basic metabolic panel (02/11/2014 7:40 AM CDT) [facility] Method Time Signature Sodium 142 133 - 144 [facility] mmol/L [facility] LABS Potassium 5.4 (H) 3.4 - 5.3 [facility] mmol/L [facility] LABS Chloride 113 (H) 94 - 109 [facility] mmol/L [facility] LABS Carbon Dioxide 22 20 - 32 [facility] mmol/L [facility] LABS Anion Gap 8 6 - 17 [facility] mmol/L [facility] LABS Glucose 155 (H) 60 - 99 [facility] mg/dL [facility] LABS Urea Nitrogen 31 (H) 7 - 30 [facility] mg/dL [facility] LABS Creatinine 1.97 (H) 0.66 - [facility] 1.25 mg/dL [facility] LABS GFR Estimate 35 (L) >60 [facility] mL/min/1.7 [place] m2 CAMPUS LABS GFR Estimate If 42 (L) >60 [facility] Black mL/min/1.7 [place] [address] CAMPUS LABS Calcium 9.1 8.5 - 10.4 [facility] mg/dL [facility] LABS Specimen Anatomical Collection Method Collection Time Receive d Time (Source) Location / / Volume Laterality Blood specimen 02/11/2014 7:40 AM 014 7:41 (specimen) CDT AM CDT Kaitlynn Leon MD LAB - BLOOD ORDERABLES Performing Organization Address City/State/ZIP Code Phon e Number [phone] [place], [place] [address] [facility] LABS documented in this encounter Visit Diagnoses Diagnosis Kidney replaced by transplant - Primary documented in this encounter Care Teams Railway Shunter Relationship Specialty Start Date End Date Momo Forbes PCP - General Family Practice 01/02/14 [facility] [address] [place] [address] Ingrid Santana, RN Registered Nurse Transplant 02/10/12 documented as of this encounter
--- OUTSIDE RECORDS SUMMARY | 2022-07-29 13:03 | XMS_ITS | Encounter Summary ---
:1950 Author Organization [place] Address Critical access hospital0 [facility] [place] [address] Care Team Providers Name Role Phone Ingrid Santana RN Unavailable Unavailable Momo Forbes Primary Care Provider Reason for Visit Reason Comments Eval/Assessment LBA Encounter Details Date Type Department Care Team Description 02/09/2014 Infusion Therapy Specialty Infusion Finger, Migel Mac y replaced by transplant (Primary Dx); Visit and Procedure MD [facility] [address] [place] [address] 19 5 [facility] 2nd Floor [address] [phone] [place] (Work) [phone] Social History Tobacco Use [...] you for choosing [facility] ([facility]) for your transplant cares. The following [...] Bring Humulog Insulin Pen to your future [facility] appointments. 5) Return to [facility] tomorrow at 07:30 a.m We look forward in seeing you on your next appointment here at [facility]. Please don???t hesitate to callus at [phone] to reschedule any of your appointments or to speak with one of the [facility] registered nurses. It was a pleasure taking care of you today. Sincerely, MARC HERNANDEZ RN [facility] [address] [address] Coumadin Information: Keep Your Diet Steady Keep [...] 7:31 AM CDT Diego Guthrie came to [facility] today for a lab and assess following a Kidney transplant on 02/02/14. Discharge date: 02/08/14 stroke program coordinator: Leandro Kahn Phone number patient can be reached at: [phone] Physical Assessment: See physical assessment located under [...] s/s insulin this morning/nor brought insulin to [facility] appt. I reviewed w/pt the need to monitor BG's QID and to bring Insulin to future [facility] appt's. Last BM: yesterday, loose, pt stopped stool softeners. Pain: Incisional pain rated a 5 , declines pain meds at this time. Laboratory tests: Standard labs drawn. Plan of care for today: 1) Labs/Nausea/Orthostatic BP/MARGARET output reviewed with Dr Hernandes, orders: Increase Zofran to 8mg every 6-8 hours, MARGARET to remain in another day, Administer 1L of NS today, d/c pt from [facility] post 1L NS, return to [facility] tomorrow for LBA, No change in [...] and Phone numbers to call with concenrs (stroke program coordinator, [address] and [facility]) Patient verbalized understanding and all questions answered. Drug level: Prograf level today reviewed with Dr Hernandes who gave orders to no change in dose. INR of 1.59 also reviewed w/Dr Hernandes who gave orders to increase Coumadin to 7.5mg QD. Patient was updated with this information and verbalized understanding. Discharge Plan Pt will follow up with [facility] tomorrow at 0730. Bring Humulog Insulin Pen to [facility] today (pt did not bring to today's appt). 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/Kerrick Kleaner Operator verbalized understanding, all questions answered: YES [...] Signature INR 1.59 (H) 0.86 - 1.14 [facility] LABS Specimen Anatomical Collection Method Collection Time Receive d Time (Source) Location / / Volume Laterality Blood specimen 02/09/2014 8:30 AM 014 (specimen) CDT 11:07 AM CDT Migel Merchant MD LAB - BLOOD ORDERABLES Performing Organization Address City/State/ZIP Code Phon e Number [facility] 500 [place], [place] [phone] [place] [address] LABS Tacrolimus level (02/09/2014 7:40 AM CDT) [facility] gist Method Time Signature Tacrolimus Not Provided [facility] Last Dose [facility] LABS Tacrolimus 8.0 5.0 - [facility] Level 15.0 ug/L [facility] LABS [...] Phon e Number [facility] [address] [place], [place] [phone] [place] [address] LABS (ABNORMAL) CBC with platelets differential (02/09/2014 7:40 AM CDT) [facility] Method Time Signature WBC 5.8 4.0 - [facility] 11.0 [place] 10e9/L [place] LABS RBC Count 2.66 (L) 4.4 - 5.9 [facility] 10e12/L [facility] LABS Hemoglobin 8.2 (L) 13.3 - [facility] 17.7 g/dL [facility] LABS Hematocrit 24.4 (L) 40.0 - [facility] 53.0 % [facility] LABS MCV 92 78 - 100 [facility] fl [facility] LABS MCH 30.8 26.5 - [facility] 33.0 pg [facility] LABS MCHC 33.6 31.5 - [facility] 36.5 g/dL [facility] LABS RDW 14.6 10.0 - [facility] 15.0 % [facility] LABS Platelet Count 78 (L) 150 - 450 [facility] 10e9/L [facility] LABS Diff Method Automated [facility] Method [facility]S % Neutrophils 84.8 % [facility] LABS % Lymphocytes 5.2 % [facility] LABS % Monocytes 6.9 % [facility] LABS % Eosinophils 2.9 % [facility] LABS % Basophils 0.0 % [facility] LABS % Immature 0.2 % [facility] Granulocytes [facility] LABS Absolute 4.9 1.6 - 8.3 [facility] Neutrophil 10e9/L [facility] LABS Absolute 0.3 (L) 0.8 - 5.3 [facility] Lymphocytes 10e9/L [facility] LABS Absolute 0.4 0.0 - 1.3 [facility] Monocytes 10e9/L [facility] LABS Absolute 0.2 0.0 - 0.7 [facility] Eosinophils 10e9/L [facility] [...] Address City/State/ZIP Code Phon e Number [phone] [place] [address] LABS (ABNORMAL) Phosphorus (02/09/2014 7:40 AM CDT) P athologist Signature Phosphorus 2.0 (L) 2.5 - 4.5 [facility] mg/dL CAMPUS LABS Specimen Anatomical Collection Method Collection Time Receive d Time (Source) Location / / Volume Laterality Blood specimen 02/09/2014 7:40 AM 014 7:49 (specimen) CDT AM CDT Migel Merchant MD LAB - BLOOD ORDERABLES Performing Organization Address City/[facility]/ZIP Code Phon e Number [facility] [address] LABS Magnesium (02/09/2014 7:40 AM CDT) [...] Phon e Number [facility] [address] [place], [place] [phone] [place] [address] LABS (ABNORMAL) Basic metabolic panel (02/09/2014 7:40 AM CDT) Patholo gist Method Time Signature Sodium 145 (H) 133 - 144 [facility] mmol/L [facility] LABS Potassium 4.5 3.4 - 5.3 [facility] mmol/L [facility] LABS Chloride 110 (H) 94 - 109 [facility] mmol/L [facility] LABS Carbon Dioxide 24 20 - 32 [facility] mmol/L [facility] LABS Anion Gap 10 6 - 17 [facility] mmol/L [facility] LABS Glucose 137 (H) 60 - 99 [facility] mg/dL [facility] LABS Urea Nitrogen 48 (H) 7 - 30 [facility] mg/dL [facility] LABS Creatinine 2.02 (H) 0.66 - [facility] 1.25 mg/dL [facility] LABS GFR Estimate 34 (L) >60 [facility] mL/min/1.7 [place] m2 [facility]AMPUS LABS GFR Estimate If 41 (L) >60 [facility] Black mL/min/1.7 [place] m2 CAMPUS LABS Calcium 9.2 8.5 - 10.4 [facility] mg/dL [facility] LABS Specimen Anatomical Collection Method Collection Time Receive d Time (Source) Location / / Volume Laterality Blood specimen 02/09/2014 7:40 AM 014 7:49 (specimen) CDT AM CDT Migel Merchant MD LAB - BLOOD ORDERABLES Performing Organization Address City/State/ZIP Code Phon e Number [facility] [address] [place] [address] [facility] LABS documented in this encounter Visit [...] dose documented in this encounter Care Teams Emergency Preparedness Coordinator Relationship Specialty Start Date End Date Momo Forbes PCP - General Family Practice 01/02/14 [facility] [address] [place] [address] Ingrid Santana, RN Registered Nurse Transplant 02/10/12 documented as of this encounter
--- OUTSIDE RECORDS SUMMARY | 2022-07-29 13:03 | XMS_ITS | Encounter Summary ---
:1950 Author Organization [place] Address Critical access hospital[address] [place] [address] Care Team Providers Name Role Phone Ingrid Santana RN Unavailable Unavailable Momo Forbes Primary Care Provider Reason for Visit Reason Comments Eval/Assessment LBA Encounter Details Date Type Department Care Team Description 02/11/2014 Office Visit Specialty Infusion Kaitlynn Leon, Complica tion of transplanted kidney (Primary Dx); and Procedure Center Anemia; [facility] HTN (hy pertension); [facility] Immunosuppression (H); 2nd Floor [address] Hypophosphatemia 6 [facility] [address] [place], [place] [phone] (Work) [phone] Social History Tobacco Use Types Packs/Day Years [...] of Education: 14 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 Discharge: 02/08/2014 Using Medcard: Yes Med review: Went over all meds and dosing with patient and Tete. Went over Prograf and Cellcept side effects. Medication questions/concerns: Patient requested that we transfer 4 rx's (to profile) from local pharmacy to us here. Pt wants us to get Zofran filled for berry picker 02/12- new dose of 2 Q6-8H PRN. Using medbox: Yes Viewed DVD: Didn't bring up Pain: #2-3, feels good, rarely using Oxycodone Other Concerns: none No further questions for this pharmacist. Yi Londono [facility] [phone] documented in this encounter Plan of Treatment [...] Signature INR 2.28 (H) 0.86 - 1.14 [facility] LABS Specimen Anatomical Collection Method Collection Time Receive d Time (Source) Location / / Volume Laterality 02/11/2014 9:30 AM 4 9:41 CDT AM CDT Kaitlynn Leon MD LAB - BLOOD ORDERABLES Performing Organization Address City/State/ZIP Code Phon e Number [phone] [place] [address] LABS documented in this encounter Visit Diagnoses Diagnosis Complication of transplanted kidney - Pr imary Complications of transplanted kidney Anemia Anemia, unspecified HTN (hypertension) Unspecified essential hypertension Immunosuppression (H) Unspecified disorder of immune mechanism Hypophosphatemia Disorders of phosphorus metabolism documented in this encounter Care Teams Crane Follower Relationship Specialty Start Date End Date Momo Forbes PCP - General Family Practice 01/02/14 [facility] [address] [place] [address] Ingrid Santana, RN Registered Nurse Transplant 02/10/12 documented as of this encounter
--- OUTSIDE RECORDS SUMMARY | 2022-07-29 13:03 | XMS_ITS | Encounter Summary ---
:1950 Author Organization [place] Address [address] [place] [address] Care Team Providers Name Role Phone Ingrid Santana RN Unavailable Unavailable Momo Forbes Primary Care Provider Reason for Visit Reason Onset Date Comments Previsit 02/15/[address] Merchant 02/18 Encounter Details Date Type Department Care Team Description 02/15/2014 Telephone Transplant Surgery Radha Acosta LPN Prev isit (Appt with Dr Anthony Merchant 02/18) 2nd Floor, Clinic [address] [place] [address] Social History Tobacco Use Types [...] filedocumented in this encounter Care Teams Range Master Relationship Specialty Start Date End Date Momo Forbes PCP - General Family Practice 01/02/14 [place] [id number] Ingrid Santana, RN Registered Nurse Transplant 02/10/12 documented as of this encounter
--- OUTSIDE RECORDS SUMMARY | 2022-07-29 13:03 | XMS_ITS | Encounter Summary ---
:1950 Author Organization [place] Address [address] [place] [address]. [place] [address] Care Team Providers Name Role Phone Ingrid Santana RN Unavailable Unavailable Momo Forbes Primary Care Provider Reason for Visit Reason Onset Date Comments Refill Request 02/11/2014 Encounter Details Date Type Department Care Team Description 02/11/2014 Refill Nephrology Isa Ly RN Refill Request 2nd Floor, Clinic 2A [place] [phone] Social History Tobacco Use Types Packs/Day [...] transplant documented in this encounter Care Teams Filler Spreader Relationship Specialty Start Date End Date Momo Forbes PCP - General Family Practice 01/02/14 [facility] [address] [place] [address] Ingrid Santana RN Registered Nurse Transplant 02/10/12 documented as of this encounter
--- OUTSIDE RECORDS SUMMARY | 2022-07-29 13:03 | XMS_ITS | Encounter Summary ---
:1950 Author Organization [place] Address [facility] [address] Care Team Providers Name Role Phone Ingrid Santana RN Unavailable Unavailable Momo Forbes Primary Care Provider Encounter Details Date Type Department Care Team Description 02/11/2014 Orders Only Nephrology J[place]eline [place], Kidney replaced by 2nd Floor, Clinic 2A RESIDENTIAL SUBCONTRACTOR transplant (Primary Tommy Wilburn Dx) [address] [phone] Social History Tobacco Use Types Packs/Day Years [...] Primary documented in this encounter Care Teams Assisted Living Director Relationship Specialty Start Date End Date Momo Forbes PCP - General Family Practice 01/02/14 [facility] [address] [place] [address] Ingrid Santana RN Registered Nurse Transplant 02/10/12 documented as of this encounter
--- OUTSIDE RECORDS SUMMARY | 2022-07-29 13:03 | XMS_ITS | Encounter Summary ---
:1950 Author Organization [place] Address [facility] [address] Care Team Providers Name Role Phone Ingrid Santana RN Unavailable Unavailable Momo Forbes Primary Care Provider Reason for Visit Reason Comments Eval/Assessment s/p kidney transplant 8days ago Encounter Details Date Type Department Care Team Description 02/10/2014 Infusion Therapy Specialty Infusion Finger, Migel Mac y replaced by Visit and Procedure MD Nathan transplant (Primary Center [address] [place] [address] Dx) [place] [id number] 5 [facility] 2nd Floor [address] [phone] [place], [place] (Work) [address] Social History Tobacco Use [...] 10:40 AM CDT Diego Guthrie came to [facility] today for a lab and assess 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 Discharge date: 02/08/14 flow coordinator: Leandro Kahn RN Phone number patient can be reached at: [phone] (girlfriend's cell) Physical Assessment: See physical assessment located under Document Flowsheets. Incision site: stapled, leaking tiny amount clear pink/pale yellow fluid from mid incision (1.5inch area on dressing from 3hours ago) covered with ABD Lines: MARGARET rlq; 30cc out last tamara; 10cc out overnite;; lite pink clear fluid Gibbs: na states is not having voiding difficulty Urine clarity: not asked Hydration: states he [id number] water yesterday but does not like that [...] Discharge Plan Pt will follow up with [facility] lab/assess in am 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/Service Line Coordinator verbalized understanding, all questions answered: YES [...] Results Tacrolimus level (02/10/2014 8:37 AM CDT) [facility] Method Time Signature Tacrolimus Not Provided [facility] Last Dose [facility] LABS Tacrolimus 6.8 5.0 - [facility] Level 15.0 ug/L [facility] LABS Comment: Tacrolimus Reference [...] Phon e Number [facility] [address] [place], [place] [id number] [place] [address] LABS (ABNORMAL) CBC with platelets differential (02/10/2014 8:37 AM CDT) Component Value Ref Test Analysis Performed At [facility] gist Range Method Time Signature WBC 5.5 4.0 - [facility] 11.0 [place] LABS 10e9/L RBC Count 2.53 (L) 4.4 - [facility] 5.9 [place] LABS 10e12/L Hemoglobin 7.9 (L) 13.3 - [facility] 17.7 [place] LABS g/dL Hematocrit 23.2 (L) 40.0 - [facility] 53.0 % CAMPUS LABS MCV 92 78 - 100 [facility] fl CAMPUS LABS MCH 31.2 26.5 - [facility] 33.0 pg CAMPUS LABS MCHC 34.1 31.5 - [facility] 36.5 CAMPUS LABS g/dL RDW 14.5 10.0 - [facility] 15.0 % CAMPUS LABS Platelet Count 89 (L) 150 - [facility] 450 CAMPUS LABS 10e9/L Diff Method Manual [...] Code Phon e Number [id number] DIFFERENTIAL [facility] LABS (ABNORMAL) Phosphorus (02/10/2014 8:37 AM CDT) P athologist Signature Phosphorus 1.9 (L) 2.5 - 4.5 [facility] mg/dL CAMPUS LABS Specimen Anatomical Collection Method Collection Time Receive d Time (Source) Location / / Volume Laterality Blood specimen 02/10/2014 8:37 AM 014 8:38 (specimen) CDT AM CDT Migel Merchant MD LAB - BLOOD ORDERABLES Performing Organization Address City/State/ZIP Code Phon e Number [facility] [address] [place] [address] [facility] LABS Magnesium (02/10/2014 8:37 AM CDT) P athologist Signature Magnesium 2.0 1.6 - 2.3 [facility] UNIVERSITY mg/dL CAMPUS LABS Specimen Anatomical Collection Method Collection Time Receive d Time (Source) Location / / Volume Laterality Blood specimen 02/10/2014 8:37 AM 014 8:38 (specimen) CDT AM CDT Migel Merchant MD LAB - BLOOD ORDERABLES Performing Organization Address City/[facility] Code Phon e Number [facility] [address] [place] [address] [facility] LABS (ABNORMAL) Basic metabolic panel (02/10/2014 8:37 AM CDT) Patholo gist Method Time Signature Sodium 144 133 - 144 [facility] mmol/L [facility] LABS Potassium 4.8 3.4 - 5.3 [facility] mmol/L [facility] LABS Chloride 111 (H) 94 - 109 [facility] mmol/L [facility] LABS Carbon Dioxide 22 20 - 32 [facility] mmol/L [facility] LABS Anion Gap 10 6 - 17 [facility] mmol/L [facility] LABS Glucose 128 (H) 60 - 99 [facility] mg/dL [facility] LABS Urea Nitrogen 34 (H) 7 - 30 [facility] mg/dL [facility] LABS Creatinine 1.80 (H) 0.66 - [facility] 1.25 mg/dL [facility] LABS GFR Estimate 38 (L) >60 [facility] mL/min/1.7 UNIVERSITY m2 CAMPUS LABS GFR Estimate If 46 (L) >60 [facility] Black mL/min/1.7 [place] [address] CAMPUS LABS Calcium 9.1 8.5 - 10.4 [facility] mg/dL [facility] LABS Specimen Anatomical Collection Method Collection Time Receive d Time (Source) Location / / Volume Laterality Blood specimen 02/10/2014 8:37 AM 014 8:38 (specimen) CDT AM CDT Migel Merchant MD LAB - BLOOD ORDERABLES Performing Organization Address City/State/ZIP Code Phon e Number [facility] [address] [place] [address] [facility] LABS documented in this encounter Visit Diagnoses Diagnosis Kidney replaced by transplant - Primary documented in this encounter Care Teams Stone Dresser Relationship Specialty Start Date End Date Momo Forbes PCP - General Family Practice 01/02/14 [facility] [address] [place] [id number] Ingrid Santana, RN Registered Nurse Transplant 02/10/12 documented as of this encounter
--- OUTSIDE RECORDS SUMMARY | 2022-07-29 13:03 | XMS_ITS | Encounter Summary ---
:1950 Author Organization [place] Address [facility] [place] [address] Care Team Providers Name Role Phone Ingrid Santana RN Unavailable Unavailable Momo Raines Primary Care Provider Reason for Visit Reason Comments Consult consult for afib Encounter Details Date Type Department Care Team Description 02/18/2014 Office [facility] Joseph [facility] (H[facility] (Primary Dx) Heart MD Sanders [facility] Building [facility] 4th Floor, Clinic [address]B [address] [phone] [place], [place] (Work) [address] [phone] Social History Tobacco Use Types Packs/Day Years [...] Years of Education: 14 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
--- OUTSIDE RECORDS SUMMARY | 2022-07-29 13:03 | XMS_ITS | Encounter Summary ---
:1950 Author Organization [place] Address [facility] [place] [address] Care Team Providers Name Role Phone Ingrid Santana RN Unavailable Unavailable Momo Forbes Primary Care Provider Reason for Visit Reason Comments Eval/Assessment LABS, ASSESSMENT, EDUCATION AND DRESSING CHANGE. Encounter Details Date Type Department Care Team Description 02/14/2014 Infusion Therapy Specialty Infusion Kaitlynn Leon MD Kidney replaced by transplant (Primary D x); Visit and Procedure Center [facility] S/P kidney transplant [facility] [address] [phone] [place], [place] (Work) [phone] Social History Tobacco Use [...] 3:25 PM CDT Diego Guthrie came to [facility] today for a lab and assess following a Kidney transplant on 02/02/14. Discharge date: 02/08/14 food services coordinator: Leandro Kahn Phone number patient can be reached at: [phone] Physical Assessment: See physical assessment located under [...] Tuesday. 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/Sub Acute Care Nurse verbalized understanding, all questions answered: YES [...] Signature INR 2.29 (H) 0.86 - 1.14 [facility] LABS Specimen Anatomical Collection Method Collection Time Receive d Time (Source) Location / / Volume Laterality Blood specimen 02/14/2014 7:51 AM 014 7:58 (specimen) CDT AM CDT Kaitlynn Leon MD LAB - BLOOD ORDERABLES Performing Organization Address City/State/ZIP Code Phon e Number [facility] [address] [place], [place] [phone] [place] [address] LABS Tacrolimus level (02/14/2014 7:51 AM CDT) [facility] gist Method Time Signature Tacrolimus Last 1914 [facility] Dose 02/13/14 [facility] LABS Tacrolimus 7.5 5.0 - [facility] Level 15.0 ug/L [facility] LABS Comment: Tacrolimus Reference Range [...] e Number [facility] [address] [facility] ([facility]NORM[facility]) CBC with platelets differential (02/14/2014 7:51 AM CDT) [facility] gist Method Time Signature WBC 6.9 4.0 - [facility] 11.0 [place] 10e9/L [place] LABS RBC Count 2.55 (L) 4.4 - 5.9 [facility] 10e12/L [facility] LABS Hemoglobin 7.8 (L) 13.3 - [facility] 17.7 g/dL [facility] LABS Hematocrit 23.4 (L) 40.0 - [facility] 53.0 % [facility] LABS MCV 92 78 - 100 [facility] fl [facility] LABS MCH 30.6 26.5 - [facility] 33.0 pg [facility] LABS MCHC 33.3 31.5 - [facility] 36.5 g/dL [facility] LABS RDW 14.9 10.0 - [facility] 15.0 % [facility] LABS Platelet Count 122 (L) 150 - 450 [facility] 10e9/L [facility] LABS Diff Method Automated [facility] Method [facility] LABS % Neutrophils 88.7 % [facility] LABS % Lymphocytes 2.6 % [facility] LABS % Monocytes 4.5 % [facility] LABS % Eosinophils 3.8 % [facility] % Basophils 0.1 % [facility] LABS % Immature 0.3 % [facility] Granulocytes [facility] LABS Absolute 6.1 1.6 - 8.3 [facility] Neutrophil 10e9/L [facility] LABS Absolute 0.2 (L) 0.8 - 5.3 [facility] Lymphocytes 10e9/L [facility] LABS Absolute 0.3 0.0 - 1.3 [facility] Monocytes 10e9/L [facility] LABS Absolute 0.3 0.0 - 0.7 [facility] Eosinophils 10e9/L [facility] LABS Absolute 0.0 0.0 - 0.2 [facility] Basophils 10e9/L [facility] LABS Abs Immature 0.0 0 - 0.4 [facility] Granulocytes 10e9/L [facility] LABS Specimen Anatomical Collection Method Collection Time Receive d Time (Source) Location / / Volume Laterality Blood specimen 02/14/2014 7:51 AM 014 7:53 (specimen) CDT AM CDT Joseph Quintana MD LAB - BLOOD ORDERABLES Performing Organization Address City/State/ZIP Code Phon e Number [address] LABS (ABNORMAL) Phosphorus (02/14/2014 7:51 AM CDT) P athologist Signature Phosphorus 2.4 (L) 2.5 - 4.5 [facility] mg/dL [place] LABS Specimen Anatomical Collection Method Collection Time Receive d Time (Source) Location / / Volume Laterality Blood specimen 02/14/2014 7:51 AM 014 7:53 (specimen) CDT AM CDT Joseph Quintana MD LAB - BLOOD ORDERABLES Performing Organization Address City/State/ZIP Code Phon e Number [address] LABS Magnesium (02/14/2014 7:51 AM CDT) athologist Signature Magnesium 1.6 1.6 - 2.3 [facility] mg/dL CAMPUS LABS Specimen Anatomical Collection Method Collection Time Receive d Time (Source) Location / / Volume Laterality Blood specimen 02/14/2014 7:51 AM 014 7:53 (specimen) CDT AM CDT Joseph Quintana MD LAB - BLOOD ORDERABLES Performing Organization Address City/[facility]/ZIP Code Phon e Number [facility] [address] [place] [address] [facility] LABS (ABNORMAL) Basic metabolic panel (02/14/2014 7:51 AM CDT) [facility] Method Time Signature Sodium 143 133 - 144 [facility] mmol/L [facility] LABS Potassium 5.4 (H) 3.4 - 5.3 [facility] mmol/L [facility] LABS Chloride 113 (H) 94 - 109 [facility] mmol/L [facility] LABS Carbon Dioxide 20 20 - 32 [facility] mmol/L [facility] LABS Anion Gap 9 6 - 17 [facility] mmol/L [facility] LABS Glucose 193 (H) 60 - 99 [facility] mg/dL [facility] LABS Urea Nitrogen 18 7 - 30 [facility] mg/dL [facility] LABS Creatinine 1.82 (H) 0.66 - [facility] 1.25 mg/dL [facility] LABS GFR Estimate 38 (L) >60 [facility] mL/min/1.7 [facility] m2 CAMPUS LABS GFR Estimate If 46 (L) >60 [facility] Black mL/min/1.7 [place] m2 CAMPUS LABS Calcium 9.2 8.5 - 10.4 [facility] mg/dL [facility] LABS Specimen Anatomical Collection Method Collection Time Receive d Time (Source) Location / / Volume Laterality Blood specimen 02/14/2014 7:51 AM 014 7:53 (specimen) CDT AM CDT Joseph Quintana MD LAB - BLOOD ORDERABLES Performing Organization Address City/[facility]/ZIP Code Phon e Number [facility] [address] [place] [address] [facility] LABS documented in this encounter Visit Diagnoses Diagnosis Kidney replaced by transplant - Primary S/P kidney transplant Kidney replaced by transplant documented in this encounter Care Teams Carpet Jack Relationship Specialty Start Date End Date Momo Forbes PCP - General Family Practice 01/02/14 [facility] [address] [place] [address] Ingrid Santana, RN Registered Nurse Transplant 02/10/12 16 documented as of this encounter
--- OUTSIDE RECORDS SUMMARY | 2022-07-29 13:03 | XMS_ITS | Encounter Summary ---
:1950 Author Organization [place] Address [facility] [place] [address] Care Team Providers Name Role Phone Ingrid Santana RN Unavailable Unavailable Momo Forbes Primary Care Provider Reason for Visit Reason Comments Eval/Assessment LBA Encounter Details Date Type Department Care Team Description 02/14/2014 Office Visit Specialty Infusion Edward, Naim S, Kidney r eplaced by transplant (Primary Dx); and Procedure Center Immunosuppression (H); Arpita [facility] Hyperka lemia; [facility] Hypophosphatemia; 2nd Floor [address] Atrial fibrillation (H); [address] [place], [place] Anemia; [place] [address] HTN (hypertension) [place], [place] [phone] [address] (Work) [phone] Social History Tobacco Use Types Packs/Day Years [...] of Education: 14 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
--- OUTSIDE RECORDS SUMMARY | 2022-07-29 13:03 | XMS_ITS | Encounter Summary ---
:1950 Author Organization [place] Address [address] [place] [address] Care Team Providers Name Role Phone Ingrid Santana RN Unavailable Unavailable Momo Forbes Primary Care Provider Reason for Visit Reason Onset Date Comments Refill Request 02/12/2014 clotrimazole Encounter Details Date Type Department Care Team Description 02/12/2014 Refill Nephrology Kaitlynn Leon MD Refill Request 2nd Floor, Clinic 2A [facility] (clotrimazole) [address] [id number] [phone] Social History Tobacco Use Types Packs/Day Years [...] one month supply. Thanks! Lianne Braswell PharmD [facility] Transplant Program [phone] documented in this encounter Plan of Treatment Not on filedocumented as of this encounter Visit Diagnoses Diagnosis S/P kidney transplant Kidney replaced by transplant documented in this encounter Care Teams Steel Tester Relationship Specialty Start Date End Date Momo Forbes PCP - General Family Practice 01/02/14 [facility] [address] [place] [address] Ingrid Santana, RN Registered Nurse Transplant 02/10/12 documented as of this encounter
--- OUTSIDE RECORDS SUMMARY | 2022-07-29 13:03 | XMS_ITS | Encounter Summary ---
:1950 Author Organization [place] Address [address] [place] [address]. [place] [address] Care Team Providers Name Role Phone Ingrid Santana RN Unavailable Unavailable Momo Forbes Primary Care Provider Encounter Details Date Type Department Care Team Description 02/18/2014 Orders Only Nephrology Shiva Kahn RN -donor kidney transplant recipie nt (Primary Dx); 2nd Floor, Clinic 2A [facility] Kidney replaced by transplant; Tommy Ruizensteen [address] [facility] S/P kidney transplant Building [address] [place] [phone] Social History Tobacco Use Types Packs/Day Years [...] transplant documented in this encounter Care Teams Intellectual Property Lawyer Relationship Specialty Start Date End Date Momo Forbes PCP - General Family Practice 01/02/14 [facility] [address] [place] [address] Ingrid Santana RN Registered Nurse Transplant 02/10/12 documented as of this encounter
--- OUTSIDE RECORDS SUMMARY | 2022-07-29 13:03 | XMS_ITS | Encounter Summary ---
:1950 Author Organization [place] Address [facility] [place] [address] Care Team Providers Name Role Phone Ingrid Santana RN Unavailable Unavailable Momo Forbes Primary Care Provider Reason for Visit Reason Onset Date Comments Refill Request 02/15/2014 Encounter Details Date Type Department Care Team Description 02/15/2014 Refill Nephrology Shiva Kahn RN Refill Request 2nd Floor, Clinic 2A [facility] Sanders [place]steen [address] [facility] [place], [place] [id number] [place] [address] [place] [phone] Social History Tobacco Use Types Packs/Day [...] filedocumented in this encounter Care Teams Car Trimmer Relationship Specialty Start Date End Date Momo Forbes PCP - General Family Practice 01/02/14 [facility] [address] [place] [address] Ingrid Santana RN Registered Nurse Transplant 02/10/12 documented as of this encounter
--- OUTSIDE RECORDS SUMMARY | 2022-07-29 13:03 | XMS_ITS | Encounter Summary ---
:1950 Author Organization [place] Address Formerly [facility] [place] [address] Care Team Providers Name Role Phone Ingrid Santana RN Unavailable Unavailable Momo Forbes Primary Care Provider Encounter Details Date Type Department Care Team Description 02/18/2014 Orders Only The Transplant Deysi Burns, Kidney replaced by transplan t; 2nd Floor, Clinic 2A S/P kidney transplant [facility] 516 [facility] [place] [address] [place] [address] [address] [place], [place] [id number] [place] [address] (Wo rk) [id number] [phone] Social History Tobacco Use Types Packs/Day Years [...] 1.5 (L) 1.6 - 2.3 [facility] mg/dL [place] [facility] Specimen Anatomical Collection Method Collection Time Receive d Time (Source) Location / / Volume Laterality Blood specimen 02/18/2014 8:56 AM 014 8:57 (specimen) CDT AM CDT Kaitlynn Leon MD LAB - BLOOD ORDERABLES Performing Organization Address City/[facility]/ZIP Code Phon e Number [facility] [address] LABS (ABNORMAL) Phosphorus (02/18/2014 8:56 AM CDT) athologist Signature Phosphorus 1.9 (L) 2.5 - 4.5 [facility] mg/dL [place] [facility] Specimen Anatomical Collection Method Collection Time Receive d Time (Source) Location / / Volume Laterality Blood specimen 02/18/2014 8:56 AM 014 8:57 (specimen) CDT AM CDT Kaitlynn Leon MD LAB - BLOOD ORDERABLES Performing Organization Address City/State/ZIP Code Phon e Number [facility] 500 [place], [place] [id number] [place] [address] LABS Tacrolimus level (02/18/2014 8:56 AM CDT) [facility] gist Method Time Signature Tacrolimus Last 02/12/14 [facility] Dose 1930 [facility] LABS Tacrolimus 14.1 5.0 - [facility] Level 15.0 ug/L [facility] LABS Comment: Tacrolimus Reference Range Kidney Transplant [...] Phon e Number [facility] 500 [place], [place] [phone] [place] [address] LABS (ABNORMAL) CBC with platelets differential (02/18/2014 8:56 AM CDT) [facility] Method Time Signature WBC 6.3 4.0 - [facility] 11.0 [place] 10e9/L [place] [facility] RBC Count 2.59 (L) 4.4 - 5.9 [employer] 10e12/L [facility] LABS Hemoglobin 7.8 (L) 13.3 - [facility] 17.7 g/dL [facility] LABS Hematocrit 23.7 (L) 40.0 - [facility] 53.0 % [facility] LABS MCV 92 78 - 100 [facility] fl [facility] LABS MCH 30.1 26.5 - [facility] 33.0 pg [facility] LABS MCHC 32.9 31.5 - [facility] 36.5 g/dL [facility] LABS RDW 14.7 10.0 - [facility] 15.0 % [facility] LABS Platelet Count 140 (L) 150 - 450 [facility] 10e9/L [facility] LABS Diff Method Automated [facility] Method [facility] LABS % Neutrophils 84.7 % [facility] LABS % Lymphocytes 3.8 % [facility] LABS % Monocytes 6.0 % [facility] LABS % Eosinophils 4.8 % [facility] LABS % Basophils 0.5 % [facility] LABS % Immature 0.2 % [facility] Granulocytes [facility] LABS Absolute 5.3 1.6 - 8.3 [facility] Neutrophil 10e9/L [facility] LABS Absolute 0.2 (L) 0.8 - 5.3 [facility] Lymphocytes 10e9/L [facility] LABS Absolute 0.4 0.0 - 1.3 [facility] Monocytes 10e9/L [facility] LABS Absolute 0.3 0.0 - 0.7 [facility] Eosinophils 10e9/L [facility] LABS Absolute 0.0 0.0 - 0.2 [facility] Basophils 10e9/L [facility] LABS Abs Immature 0.0 0 - 0.4 [facility] Granulocytes 10e9/L [facility] LABS Specimen Anatomical Collection Method Collection Time Receive d Time (Source) Location / / Volume Laterality Blood specimen 02/18/2014 8:56 AM 014 8:57 (specimen) CDT AM CDT Kaitlynn Leon MD LAB - BLOOD ORDERABLES Performing Organization Address City/State/ZIP Code Phon e Number [phone] [place] [address] LABS (ABNORMAL) Basic metabolic panel (02/18/2014 8:56 AM CDT) [facility] gist Method Time Signature Sodium 141 133 - 144 [facility] mmol/L [facility] LABS Potassium 5.2 3.4 - 5.3 [facility] mmol/L [facility] LABS Chloride 112 (H) 94 - 109 [facility] mmol/L [facility] LABS Carbon Dioxide 18 (L) 20 - 32 [facility] mmol/L [facility] LABS Anion Gap 11 6 - 17 [facility] mmol/L [facility] LABS Glucose 185 (H) 60 - 99 [facility] mg/dL [facility] LABS Urea Nitrogen 24 7 - 30 [facility] mg/dL [facility] LABS Creatinine 1.81 (H) 0.66 - [facility] 1.25 mg/dL [facility] LABS GFR Estimate 38 (L) >60 [facility] mL/min/1.7 [place] m2 CAMPUS LABS GFR Estimate If 46 (L) >60 [facility] Black mL/min/1.7 [place] [address] CAMPUS LABS Calcium 9.4 8.5 - 10.4 [facility] mg/dL [facility] LABS Specimen Anatomical Collection Method Collection Time Receive d Time (Source) Location / / Volume Laterality Blood specimen 02/18/2014 8:56 AM 014 8:57 (specimen) CDT AM CDT Kaitlynn Leon MD LAB - BLOOD ORDERABLES Performing Organization Address City/[facility]/ZIP Code Phon e Number [address] [address] [facility] LABS (ABNORMAL) INR (02/18/2014 8:56 AM CDT) P athologist Signature INR 2.13 (H) 0.86 - 1.14 [facility] LABS Specimen Anatomical Collection Method Collection Time Receive d Time (Source) Location / / Volume Laterality Blood specimen 02/18/2014 8:56 AM 014 8:57 (specimen) CDT AM CDT Kaitlynn Leon MD LAB - BLOOD ORDERABLES Performing Organization Address City/[facility]/[place] Code Phon e Number [facility] 500 [place] [address] [facility] LABS documented in this encounter Visit Diagnoses Diagnosis Kidney replaced by transplant S/P kidney transplant Kidney replaced by transplant documented in this encounter Care Teams Database Reporting Consultant Relationship Specialty Start Date End Date Momo Forbes PCP - General Family Practice 01/02/14 [facility] [address] [place] [address] Ingrid Santana, RN Registered Nurse Transplant 02/10/12 documented as of this encounter
--- OUTSIDE RECORDS SUMMARY | 2022-07-29 13:03 | XMS_ITS | Encounter Summary ---
:1950 Author Organization [place] Address Counts include 234 beds at the [facility] [place] [address] Care Team Providers Name Role Phone Ingrid Santana RN Unavailable Unavailable Momo Forbes Primary Care Provider Encounter Details Date Type Department Care Team Description 02/11/2014 Radiant Appointment [facility] 1st Floor, Clinic 1D [place], [place] [address] Social History Tobacco Use Types Packs/Day Years [...] filedocumented in this encounter Care Teams Certified Medication Aide Relationship Specialty Start Date End Date Momo Forbes PCP - General Family Practice 01/02/14 [facility] [address] [place] [address] Ingrid Santana, RN Registered Nurse Transplant 02/10/12 documented as of this encounter
--- OUTSIDE RECORDS SUMMARY | 2022-07-29 13:03 | XMS_ITS | Encounter Summary ---
:1950 Author Organization [place] Address [address] [place] [address]. [place] [address] Care Team Providers Name Role Phone Ingrid Santana RN Unavailable Unavailable Momo Forbes Primary Care Provider Encounter Details Date Type Department Care Team Description 02/18/2014 Orders Only Nephrology Shiva Kahn, -donor kidney transp lant recipient (Primary Dx); 2nd Floor, Clinic 2A RN High risk medications (not anticoagulant s) long-term use; Tommy Wilburn 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
--- OUTSIDE RECORDS SUMMARY | 2022-07-29 13:03 | XMS_ITS | Encounter Summary ---
:1950 Author Organization [place] Address Critical access hospital0 [facility] [place] [address] Care Team Providers Name Role Phone Ingrid Santana RN Unavailable Unavailable Momo Forbes Primary Care Provider Reason for Visit Reason Comments Eval/Assessment LBA Encounter Details Date Type Department Care Team Description 02/12/2014 Infusion Therapy Specialty Infusion Finger, Migel Mac y replaced by Visit and Procedure MD Nathan transplant (Primary Center [address] [place] [address] Dx) [facility] [place] [address] 5 [facility] 2nd Floor [address] [phone] [place], [place] (Work) [phone] Social History Tobacco Use [...] Diego Guthrie Thank you for choosing [facility] ([facility]) for your transplant cares. The following information is a summary of our appointment as well as important reminders. Additional information: We will see you on for labs & assessment. We look forward in seeing you on your next appointment here at [facility]. Please don???t hesitate to callus at [phone] to reschedule any of your appointments or to speak with one of the [facility] registered nurses. It was a pleasure taking care of you today. Sincerely, Gladis Olvera, BOGDAN [facility] [address] [place] [address] January 2014Tuesday 1 2 3 4 5 6 7 8 9 10 11 12 13 14 Admission 12:55 PM Migel Merchant MD Unit 7A [facility] [place] (Discharge: 02/08/2014) XR CHEST 2 VIEWS 1:55 PM (10 min.) [facility]ux[facility], Radiology TRANSPLANT KIDNEY RECIPIENT DONOR 4:00 PM Migel Merchant MD UU OR XR CHEST PORT 2 VIEWS 11:10 PM (15 min.) Uuxrph1 [facility], Radiology 15 US RENAL TRANSPLANT 7:50 AM (50 min.) [facility]uus[facility], Ultrasound 16 IP EVALUATION 6:00 AM (60 min.) Angela Wilder, PT [facility], Physical Therapy UU TRANSPLANT MEDICATIONS 11:00 AM (120 min.) Josseline Almendarez, BOGDAN [facility], Patient Learning Center UU TRANSPLANT FOLLOW-UP CARE 1:00 PM (120 min.) Josseline Almendarez RN [facility] [place], Patient Learning Center ECH LIMITED 3:35 PM (60 min.) Uuechipr1 [facility], Echocardiography 17 IP TREATMENT 5:30 AM (30 min.) Roderick Lawson, PT [facility], Physical Therapy 18 IP TREATMENT 5:30 AM (30 min.) Yesenia Rodriguez, PT [facility], Physical Therapy 19 IP TREATMENT 5:30 AM (30 min.) Reina Kenny, PT [facility], Physical Therapy US RENAL 11:15 AM (60 min.) [facility]uus[facility], Ultrasound 20 IP TREATMENT 5:30 AM (30 min.) Reina Kenny, PT [facility], Physical Therapy UU TRANSPLANT MEDICATIONS 11:00 AM (120 min.) Em Mohan, RN [facility], Patient Learning Center 21 [facility] NEW TRANSPLANT 7:00 AM (360 min.) [facility] Sipc Chair 9 Specialty Infusion and Procedure Center 22 [facility] NEW TRANSPLANT 7:00 AM (360 min.) [facility] Sipc Chair 11 Specialty Infusion and Procedure Center 23 [facility] NEW TRANSPLANT 7:00 AM (360 min.) [facility] Sipc Chair 12 Specialty Infusion and Procedure Center [facility] KIDNEY TX DISCHARGE 9:00 AM (30 min.) Kaitlynn Leon MD Specialty Infusion [facility] Procedure Center US RENAL TRANSPLANT 2:00 PM (60 min.) [address] 24 [facility] NEW TRANSPLANT 7:00 AM (360 min.) [facility] Sipc Bed 14 Specialty Infusion and Procedure Center [facility] SIPC RETURN 9:00 AM (30 min.) Kaitlynn Leon MD [facility]fusion [facility] Procedure Center 25 26 [facility] SIPC PROCEDURE 7:00 AM (60 min.) [facility] Sipc Chair 9 Specialty Infusion and Procedure Center [facility] SIPC RETURN 8:00 AM (30 min.) Kaitlynn Leon MD Specialty Infusion and Procedure Center 27 28 29 30 [facility] NEW 9:00 AM (30 min.) [facility] Cvc Consult [facility] Heart [facility] KIDNEY POST OP 1:45 PM (15 min.) [...] 4:27 PM CDT Diego Guthrie came to [facility] today for a lab and assess following a Kidney transplant on 02/02/14. Discharge date: 02/08/14 tax collection coordinator: Leandro Kahn Phone number patient can be reached at: [phone] Physical Assessment: See physical assessment located under Document Flowsheets. Incision site: with modesta & slight ecchymosis. Dry dressing changed. Lines: MARGARET drain to bulb suction is draining sero sanguinous fluid. Continues to drain more than 30 ml/day. Pt will have Tuesday off from [facility] and will return for [...] of care for today: Pt presented to [facility] for labs and assessment. 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 Adjuster Leader verbalized understanding, all questions answered: YES Discharged [...] Signature INR 2.64 (H) 0.86 - 1.14 [facility] LABS Specimen Anatomical Collection Method Collection Time Receive d Time (Source) Location / / Volume Laterality Blood specimen 02/12/2014 7:41 AM 014 7:43 (specimen) CDT AM CDT Kaitlynn Leon MD LAB - BLOOD ORDERABLES Performing Organization Address City/State/ZIP Code Phon e Number [facility] 500 [place] [address] [facility] LABS Tacrolimus level (02/12/2014 7:41 AM CDT) [facility] gist Method Time Signature Tacrolimus Last 02/11/14 [facility] Dose 1900 [facility] LABS Tacrolimus 8.4 5.0 - [facility] Level 15.0 ug/L [facility] [...] Phon e Number [facility] 500 [place] [address] [facility] LABS (ABNORMAL) CBC with platelets differential (02/12/2014 7:41 AM CDT) Patholo gist Method Time Signature WBC 5.0 4.0 - [facility] 11.0 [place] 10e9/L [place] LABS RBC Count 2.41 (L) 4.4 - 5.9 [facility] 10e12/L [facility] Hemoglobin 7.4 (L) 13.3 - [facility] 17.7 g/dL [facility] LABS Hematocrit 22.3 (L) 40.0 - [facility] 53.0 % [facility] LABS MCV 93 78 - 100 [facility] fl [facility] LABS MCH 30.7 26.5 - [facility] 33.0 pg [facility] LABS MCHC 33.2 31.5 - [facility] 36.5 g/dL [facility] RDW 14.5 10.0 - [facility] 15.0 % [facility] Platelet Count 95 (L) 150 - 450 [facility] 10e9/L [facility] Diff Method Automated [facility] Method [facility] % Neutrophils 85.2 % [facility] LABS % Lymphocytes 5.6 % [facility] LABS % Monocytes 4.6 % [facility] LABS % Eosinophils 4.2 % [facility] % Basophils 0.2 % [facility] % Immature 0.2 % [facility] Granulocytes [facility] Absolute 4.3 1.6 - 8.3 [facility] Neutrophil 10e9/L [facility] Absolute 0.3 (L) 0.8 - 5.3 [facility] Lymphocytes 10e9/L [facility] Absolute 0.2 0.0 - 1.3 [facility] Monocytes 10e9/L [facility] Absolute 0.2 0.0 - 0.7 [facility] Eosinophils 10e9/L MEDICAL [...] Phon e Number [facility] 500 [place], [place] [id number] [place] [address] LABS (ABNORMAL) Phosphorus (02/12/2014 7:41 AM CDT) P athologist Signature Phosphorus 1.7 (L) 2.5 - 4.5 [facility] mg/dL CAMPUS LABS Specimen Anatomical Collection Method Collection Time Receive d Time (Source) Location / / Volume Laterality Blood specimen 02/12/2014 7:41 AM 014 7:43 (specimen) CDT AM CDT Kaitlynn Leon MD LAB - BLOOD ORDERABLES Performing Organization Address City/[facility] Phon e Number [facility] [address] LABS Magnesium (02/12/2014 7:41 AM CDT) athologist Signature Magnesium 1.8 1.6 - 2.3 [facility] mg/dL CAMPUS LABS Specimen Anatomical Collection Method Collection Time Receive d Time (Source) Location / / Volume Laterality Blood specimen 02/12/2014 7:41 AM 014 7:43 (specimen) CDT AM CDT Kaitlynn Leon MD LAB - BLOOD ORDERABLES Performing Organization Address City/State/[facility] Code Phon e Number [facility] 500 [place], [place] [phone] [place] [address] LABS (ABNORMAL) Basic metabolic panel (02/12/2014 7:41 AM CDT) [facility] gist Method Time Signature Sodium 142 133 - 144 [facility] mmol/L [facility] Potassium 4.9 3.4 - 5.3 [facility] mmol/L [facility] Chloride 113 (H) 94 - 109 [facility] mmol/L [facility]S Carbon Dioxide 21 20 - 32 [facility] mmol/L [facility] Anion Gap 9 6 - 17 [facility] mmol/L [facility] Glucose 127 (H) 60 - 99 [facility] mg/dL [facility] Urea Nitrogen 24 7 - 30 [facility] mg/dL [facility] Creatinine 1.92 (H) 0.66 - [facility] 1.25 mg/dL [facility] GFR Estimate 36 (L) >60 [facility] mL/min/1.7 [place] m2 CAMPUS LABS GFR Estimate If 43 (L) >60 [facility] Black mL/min/1.7 [place] [address] CAMPUS LABS Calcium 8.9 8.5 - 10.4 [facility] mg/dL [facility] Specimen Anatomical Collection Method Collection Time Receive d Time (Source) Location / / Volume Laterality Blood specimen 02/12/2014 7:41 AM 014 7:43 (specimen) CDT AM CDT Kaitlynn Leon MD LAB - BLOOD ORDERABLES Performing Organization Address City/State/ZIP Code Phon e Number [facility] [address] [place] [address] [facility] LABS documented in this encounter [...] after. documented in this encounter Care Teams Mold Shifter Relationship Specialty Start Date End Date Momo Forbes PCP - General Family Practice 01/02/[address] [address] Ingrid Santana, RN Registered Nurse Transplant 02/10/12 documented as of this encounter
--- OUTSIDE RECORDS SUMMARY | 2022-07-29 13:03 | XMS_ITS | Encounter Summary ---
:1950 Author Organization [place] Address [address] [place] [address] Care Team Providers Name Role Phone Ingrid Santana RN Unavailable Unavailable Momo Forbes Primary Care Provider Reason for Referral CV Cardio consult - Closed Specialty Diagnoses / Procedures Referred By Contact Refer red To Contact Diagnoses Atrial fibrillation (H) Kaitlynn Leon MD [facility] [place] [address] [place] [address] Fax: Referral ID Status Reason Start Date Expiration Date Visits Requ ested Visits Authorized [id number] Closed 02/12/2014 08/11/2014 1 1 Reason for Visit Reason Comments RECHECK Encounter Details Date Type Department Care Team Description 02/12/2014 Office Visit Specialty Infusion Kaitlynn Leon, S/P kidn ey transplant (Primary Dx); and Procedure Center Atrial fibrillation (H); [place] [facility] Hypopho sphatemia; [facility]; 2nd Floor [address] Immunosuppression (H) 516 [facility] [address] [place], [place] [phone] [address] (Work) [phone] Social History Tobacco Use Types Packs/Day Years [...] Guthrie Thank you for choosing [facility] ([facility]) for your transplant cares. The following information is a summary of our appointment as well as important reminders. Please make sure your phone is available today because I will call to update you with your anti-rejection drug levels and possibly make changes to your anti- rejection dosages. Additional information: -Decrease your coumadin dose to 5 mg every evening -Please return to [facility] on for Labs & assessment -Call us or Leandro Kahn with any questions. -Your Home Care Nurse should begin visits on TuesdayFebruary 14. If you do not hear from them by Tuesday morning, try to reach them at [phone]. We look forward in seeing you on your next appointment here at [facility]. Please don???t hesitate to callus at [phone] to reschedule any of your appointments or to speak with one of the [facility] registered nurses. It was a pleasure taking care of you today. 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
--- OUTSIDE RECORDS SUMMARY | 2022-07-29 13:05 | XMS_ITS | Encounter Summary ---
:1950 Author Organization [facility] Address [address] [place] [address] Care Team Providers Name Role Phone Ingrid Santana RN Unavailable Unavailable Momo Forbes Primary Care Provider Reason for Referral Home Health Therapies & Aides Specialty Diagnoses / Procedures Referred By Contact Refer red To Contact Adeline Diaz MD [place] [phone] Referral ID Status Reason Start Date Expiration Date Visits Requ ested Visits Authorized ome Health Therapies & Aides Specialty Diagnoses / Procedures Referred By Contact Gary phelps To Contact Adeline Diaz MD [address] [address] 5 Referral ID Status Reason Start Date Expiration Date Visits Requ ested Visits Authorized ome Health Therapies & Aides Specialty Diagnoses / Procedures Referred By Contact Gary phelps To Contact [facility] [address] [place], [place] [phone] Referral ID Status Reason Start Date Expiration Date Visits Requ ested Visits Authorized Reason for Visit Auth/Cert - Closed Specialty Diagnoses / Procedures Referred By Contact Gary phelps To Contact Med Surg Diagnoses end stage renal disease dialysis End stage renal failure on dialysis Renal Failure Uu U7a Procedures TRANSPLANT KIDNEY RECIPIENT DONOR [address] [place] [address] Phone: Referral ID Status Reason Start Date Expiration Date Visits Requ ested Visits Authorized [id number] Closed 02/04/2014 08/03/2014 1 1 Encounter Details Date Type Department Care Team Description 02/02/2014 - [facility] [address] [place] [id number] S/P kidney transplant (Primary Dx); 02/08/2014 [facility] [address] [place]w Rust MD [address] [place] [address] Atrial fibrillation (H) Bank [address] [place] [address] Social History Tobacco Use Types [...] Physician Discharge Summary Patient ID: Diego Guthrie [id number] 63 year old 1950 Admit date: 02/02/2014 [...] Take 1 tablet by mouth daily. B zxljsvy-D-qtlzb acid (NEPHROCAPS) 1 MG capsule Take 1 [...] in the [facility] ([facility]) which is located on the second floor of the [facility] next to the Transplant Clinic. Your [...] of these appointments you will meetwith a conference planning manager and meet your sourcing coordinator. Your nurse will also be in communication with your surgeon and conference planning manager as needed. The direct number to the [facility] is [phone]. In the [facility] [...] the hospital. This will be located in [facility] transplant surgery clinic on the second floor.Your transplant surgeon is: Dr. Merchant. You have a ureteral stent in place which needs to be removed in 4-6 weeks. If a lounge car attendant does not contact you for this, please contact your sourcing coordinator. If you have modesta in place, they will be removed in 3 weeks after operation. Notify your coordinator if you have pain over your kidney, fever greater than 101.5F, or decreased urine output. Notify your coordinator immediately if you are ever unable to take your immunosuppressive medications for any reason. Anesthesiologist Assistant [phone] Diet recommendations post-transplant: Heart healthy dietary habits terminal worker (low saturated/trans fat, low sodium). High protein [...] >2. He can be seen by any lead former in the outpatient setting for coordination. Continue metoprolol 25 po bid until he is r e-evaluated. We did attempt inpatient REFUGIO guided cardioversion, but the patient developed significant bleeding while on heparin. José Miguel Alvarez M.D. Law Enforcement Officer Joseph Quintana MD - 02/08/2014 12:35 PM [...] Dr. Quintana. Sina Robison MD Nephrology Fellow [phone] Attestation: This patient has been seen and [...] Ramires RN - 02/07/2014 2:25 PM CDT Float Remover D: Diego Guthrie 63 year old male POD #5 s/p DDKT for ESRD 2/[address] Diaz note today. Per Dr Diaz, pt will most likely be ready for d/c to home tomorrow and will return to [facility] for 5 days at 0700. Pt [...] him. Pt does not know where the [facility] or transplant clinic is, I told him and he replied I will find it. Pt does not care which [facility] agency will follow him--There are only 2 to choose from, so I chose the [facility] [phone]/ --I called and left a message with Estrella Fletcher and I fax'd his records tothem--pt will need start of care approx Thursday 02/15. Pt is new on warfarin and I called his PCP's office and they have INR nurses Tuesday-Tuesday their fax # is [phone] (when N visits are completed --pt will call main clinic # to schedule INR draws). 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 I verified his address and phone #(is his cell) on the facesheet. Pt has not met his OP congregational care pastor: Leandro Kahn, yet--I sent Leandro an in [...] Dr. Quintana. Sina Robison MD Nephrology Fellow [phone] Attestation: This patient has been seen and [...] assistance Medical Decision Making: Medium Subsequent visit 41335 (moderate level decision making) PATO/Fellow/Resident Provider: Adeline [...] Rodriguez MD - 02/06/2014 4:25 PM CDT [facility] Cardiology Progress Note I have [...] Dr. Quintana. Sina Robison MD Nephrology Fellow [phone] Attestation: This patient has been seen and [...] Dr. Quintana. Sina Robison MD Nephrology Fellow [phone] Attestation: This patient has been seen and [...] REPLACEMENT ONLY ??? insulin (regular) Stopped (02/05/14 4157) Shiva Kahn RN - 02/05/2014 4:47 PM CDT DEWAXER NOTE I met with the patient and his yesterday at [facility] PCU-6B (telemetry unit) to discuss transition from inpatient to outpatient care following kidney translantation. 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 Jsoeph Rodriguez MD - 02/05/2014 11:16 AM CDT [facility] Cardiology Progress Note I have [...] 02/02/2014. Pt lives alone in [place] though reports that his girlfriend in in the process of moving in with him. Pt girlfriend, Tete, will be present when pt returns home but she works methods time analyst. Pt was on dialysis for 2 1/2 years prior to transplant. Pt works independently but reports that he currently has no income coming in. Pt has primary insurancethrough Medicare and Secondary insurance through [employer]. Pt has no co-pays for his immunosuppressants [...] discharge like fol low up in the [facility]. Pt is unsure yet if he [...] needs arise prior to discharge. CECY Kearns, PACKAGING SALES Indu Calixto MD - 02/05/2014 1:50 AM [...] Adds Type of Visit Initial PT Evaluation Technology Trainer Technology Trainer Present no Language Albanian Living Environment (R) Lives With alone Living Arrangements ([facility]) Home Accessibility no concerns Number of [...] up when pt is available. CECY Kearns, [facility] [phone] phone [phone] pager Joseph Quintana MD - 02/04/2014 11:51 [...] Dr. Quintana. Sina Robison MD Nephrology Fellow [phone] Attestation: This patient has been seen and [...] for this basename: PTHI, in the last 62978 hours IRON STUDIES No results found for this basename: IRON, FEB, IRONSAT, THEE, in the last 48355 hours Imaging: All imaging studies reviewed by [...] or equal to 12.0 mlU/mL. Adeline Diaz [phone] Attestation: The patient has been seen and [...] donor kidney transplant, with stent on 02/02/14. COMPRESSED GAS PLANT WORKER donor. Graft function:uncertain, Cr slightly up. Slow [...] . Medical Decision Making: Medium Subsequent visit 42058 (moderate level decision making) PATO/Fellow/Resident Provider: Caitlin [...] note and orders. Migel Merchant MD, PhD general repairer Abdominal Organ Transplantation Carmelita Rosario, RN - 02/03/2014 9:38 AM CDT Patient removed from the UNOS waitlist after donor kidney transplant. UNOS ID is [id number]. Rafaela Cardona - 02/03/2014 9:17 AM CDT [...] followed general diet. Patient reports good appetite/intake JUNIOR SALES ASSISTANT, no nutrition issues/concnerns. CURRENT NUTRITION ORDERS - [...] DDKT ASSESSED NUTRITION NEEDS: Estimated Energy Needs: 6087-4216+ kcals (25-30+ Kcal/Kg) Justification: maintenance post-transplant Estimated [...] 8 weeks). Rec follow heart-healthy diet terminal worker. Implementation Nutrition education: Provided instruction on post-transplant diet with discussion regarding protein sources and high protein needs in acute post-tx phase. Reviewed recommendations to follow low fat/lowsodium diet terminal worker and discussed heart healthy diet tips. Discussed [...] adjustment. Rafaela Cardona RD, LD Weekend Coverage [phone] Carla, Jose Galarza MD - 02/03/2014 4:57 [...] Doing well postoperatively. Pain: Controlled by Dilaudid FIELD SECRETARY Diet: NPO tonight Volume Status: Borderline low UOP, continue MIVF, 0.9 % NS 500 cc bolus given for low UOP, CVP not accurate, systolic in 100-110 Recheck hemoglobin and potassium normal. Rest of the plan per primary team. Will continue to follow. Jose Aguirre MD PGY-1.................02/03/2014 Surgery Cross Cover Pager:[phone] documented in this encounter H&P Notes Caitlin [...] 1 tablet by mouth daily. ??? 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 Kidney bx [...] note and orders. Migel Merchant MD, PhD general repairer Abdominal Organ Transplantation documented in this encounter Consult Notes Joseph Rodriguez MD - 02/04/2014 11:03 AM CDTAssociated Order(s): CARDIOLOGY IP CONSULT [facility] CARDIOLOGY CONSULT SERVICE INITIAL CONSULT NOTE [...] 1 tablet by mouth daily. ??? B ocyuako-K-hbepw acid (NEPHROCAPS) 1 MG capsule Take 1 [...] basename: TSH, in the last 168 hours MtkZ7bLd components found with this basename: HGBA1C, TroponinNo [...] assessment and plan. José Miguel Alvarez MD Law Enforcement Officer Pager: [phone] February 04, 2014 Kaitlynn Leon MD - 02/03/2014 9:30 AM CDT Nephrology Initial Consult February 03, 2014 Diego Guthrie Date of : 1950 Date of Admission:02/02/2014 Primary care provider: Momo Forbes Requesting physician: Migel Merchant MD ASSESSMENT AND RECOMMENDATIONS: 1. DDKT - COMPRESSED GAS PLANT WORKER -59 yo women; slow graft function-no immediate need for dialysis , but may require tomorrow if UO does not hop picker. We will monitor Induction with Thymo/Cellcept [...] h/o type 2 Dm, who received DDKT (COMPRESSED GAS PLANT WORKER) on 02/02/2014 donor kidney had severe atherosclerotic [...] ??? Cataract iol, rt/lt both eyes MEDICATIONS: JUNIOR SALES ASSISTANT Meds Prior to Admission medications Medication Sig Last Dose Taking? Auth Provider Calcium Carbonate-Vitamin D (CALCIUM + D PO) Take by mouth daily. Reported, Patient lisinopril (PRINIVIL,ZESTRIL) 40 MG tablet Take 40 mg by mouth 2 times daily. Reported, Patient METOPROLOL SUCCINATE PO Take by mouth daily. Reported, Patient aspirin 81 MG tablet Take 1 tablet by mouth daily. Reported, Patient B crwtyun-R-ubfst acid (NEPHROCAPS) 1 MG capsule Take 1 [...] Intravenous Central line Once ??? HYDROmorphone Intravenous FIELD SECRETARY Infusion Meds ??? IV fluid REPLACEMENT ONLY [...] Date 02/03/14 0700 - 02/04/14 0659 Shift [id number] 7427-7292 0783-8897 24 Hour Total I N T A [...] for this basename: PTHI, in the last 04529 hours IRON STUDIES No results found for this basename: IRON, FEB, IRONSAT, THEE, in the last 21647 hours Deysi Alicea MD Jarad Cullen MD [...] tablet by mouth daily. Reported, Patient B lveptpm-Z-pnnuh acid (NEPHROCAPS) 1 MG capsule Take 1 [...] and plan. Alvin Diego Cardiovascular Disease Fellow [phone] Patient seen and examined by me with [...] Cullen MD, PhD Jarad Cullen MD, PhD [phone] documented in this encounter Nursing Notes Gretta Mary RN - 02/02/2014 11:[address] Owens with Transplant Surgery notified of stat lab results. Magnesium replaced. Dr. Blank with Anesthesia reviewed chest x-ray. CVC not deep enough to give accurate CVP readings, however all lumens aspirate blood well. Patient is ok to transfer to unit 6B per [facility]. documented in this encounter Miscellaneous Notes Plan of Care - Amanda Hernandez RN - 02/08/2014 3:44 PM CDT Problem: IP GENERAL POC-ADULT,OB,BEHAVIORAL FVCPM Goal: Individualization/Patient-Specific Goal (Adult,OB,Behavioral The patient and/or their sales training representative will achieve their patient-specific goals related [...] Card updated. Report called to Saima in [facility]. Left facility accompanied by s.o at 1600. Plan of Care - Amanda Hernandez RN - 02/08/2014 2:13 PM CDT Problem: IP GENERAL POC-ADULT,OB,BEHAVIORAL FVCPM Goal: Individualization/Patient-Specific Goal (Adult,OB,Behavioral The patient and/or their sales training representative will achieve their patient-specific goals related [...] Goal (Adult,OB,Behavioral The patient and/or their sales training representative will achieve their patient-specific goals related [...] Goal (Adult,OB,Behavioral The patient and/or their sales training representative will achieve their patient-specific goals related [...] weeks. Inez Luevano MS, RD, LD Pager [phone] Pharmacy-Immunosuppression Monitoring - Em Vasquez, [facility] - 02/07/2014 9:06 AM [...] will continue to follow. Em Vasquez, Pharm.D., [facility] Pager [phone] Plan of Care - Annmarie Colby RN - 02/07/2014 5:11 AM CDT Problem: IP GENERAL POC-ADULT,OB,BEHAVIORAL FVCPM Goal: Individualization/Patient-Specific Goal (Adult,OB,Behavioral The patient and/or their sales training representative will achieve their patient-specific goals related [...] Goal (Adult,OB,Behavioral The patient and/or their sales training representative will achieve their patient-specific goals related [...] increased fluid intake, urine color is becoming planer tailer( tea color/bloody- >dark sy/tea color). Incisional pain [...] Therapy Goals The patient and/or their sales training representative will achieve their patient-specific goals related [...] Therapy Goals The patient and/or their sales training representative will achieve their patient-specific goals related [...] Goal (Adult,OB,Behavioral The patient and/or their sales training representative will achieve their patient-specific goals related [...] Goal (Adult,OB,Behavioral The patient and/or their sales training representative will achieve their patient-specific goals related [...] Therapy Goals The patient and/or their sales training representative will achieve their patient-specific goals related [...] this time. Pharmacy - Cayetano Olivera [facility] - 02/05/2014 12:26 PM CDT Visited 02/05/2014 in hospital room prior to discharge to review medications, review discharge process and review specialty pharmacy program. Med Review: Reviewed patient's medications and medical conditions. Patient would like to use [facility] to manage all medications. Medcard: [...] Specialty Pharmacy review: Discussed the benefits of [facility] and Diego has enrolled. Also gave him supplies (blood pressure cuff, thermometer, and pill box) Other concerns: No other concerns at this time. No further questions for this pharmacist. Inez Cox, Student Pharmacist Stud Beef Cattle Farmer [facility] [address] [place] [address] Cayetano Olivera, Pharmacist [facility] [phone] Pharmacy-Anticoagulation Service - Teresa Wright RP - [...] Goal (Adult,OB,Behavioral The patient and/or their sales training representative will achieve their patient-specific goals related [...] Goal (Adult,OB,Behavioral The patient and/or their sales training representative will achieve their patient-specific goals related [...] Therapy Goals The patient and/or their sales training representative will achieve their patient-specific goals related [...] by friend. Pt transferred to chair, VSS, night monitor on, oriented to room. Pharmacy-Admission Medication History - Teresa Wright [facility] - 02/04/2014 11:54 AM CDT Admission medication history interview status for the 02/02/2014 admission is complete. See [facility] admission navigator for allergy information, prior to admission medications and immunization status. Medication history interview sources (including written lists, pill bottles, clinic record):Patient Medication history source reliability:Good Primary pharmacy:[email or web address] phone number: [phone] Changes made to JUNIOR SALES ASSISTANT medication list (reason) Added: Vitamin D 1,000 [...] at Unknown time Yes Reported, Patient B rpbsmou-Q-xfnob acid (NEPHROCAPS) 1 MG capsule Take 1 [...] Goal (Adult,OB,Behavioral The patient and/or their sales training representative will achieve their patient-specific goals related [...] Therapy Goals The patient and/or their sales training representative will achieve their patient-specific goals related to the plan of care. The patient-specific goals include: PT 7A: HOLD for AM per RN - pt with a-fib this morning. Plan of Care - Alisson Diane RN - 02/04/2014 6:45 AM CDT Problem: IP GENERAL POC-ADULT,OB,BEHAVIORAL FVCPM Goal: Individualization/Patient-Specific Goal (Adult,OB,Behavioral The patient and/or their sales training representative will achieve their patient-specific goals related [...] Goal (Adult,OB,Behavioral The patient and/or their sales training representative will achieve their patient-specific goals related [...] Goal (Adult,OB,Behavioral The patient and/or their sales training representative will achieve their patient-specific goals related to the plan of care. The patient-specific goals include: 1. Pt will remain hemodynamically stable 2. Pt will have adequate urine output 3. Pt will be free of falls. RD Patient will verbalize understanding of 3 important aspects of post-transplant diet guidelines. PO intake >50% meals TID once diet adv. Report taken from [facility] on 6B; patient transferred to from 6B via wheelchair around 1500. Patientsettled into room, oriented to floor/room and call light. VS taken. Orders released. Continue ordersas written and notify MD with any concerns. Plan of Care - Sofie Christianson RN - 02/03/2014 2:59 PM CDT Problem: IP GENERAL POC-ADULT,OB,BEHAVIORAL FVCPM Goal: Plan of Care Review (Adult,OB,Behavioral) The patient and/or their sales training representative will communicate an understanding of their [...] algorithm 2, 1 unit now. Pt still [id number] NC to maintain sats above 90 % [...] Goal (Adult,OB,Behavioral The patient and/or their sales training representative will achieve their patient-specific goals related [...] Intermittent sharp R lower abd pain. Dilaudid FIELD SECRETARY encouraged, increased to 0.2/10/1.2. R lower abd [...] 0200 made 20cc/hr, at 0300 made 30cc/hr. Exline/red tinged urine. MIVF @ 125/hr. VSS. HR 70s, BPs 100s-120s/60s. No new orders at this time. Will continue to monitor. Plan of Care - Tasia Andrade RN - 02/03/2014 12:00 AM CDT Pt arrived to 6B from PACU, s/p DDKT. A&O x3-4. VSS. Exline/red urine output. Small amt drainage on abd [...] patient received anorgan offer for a Donor COMPRESSED GAS PLANT WORKER (expanded criteria donor) kidney transplant. After discussing [...] The UNOS number of the donor is [id number]. The crossmatch was done prospectively; and the [...] reconstruction. FACULTY SURGEON: Migel Merchant M.D., Ph.D. FELLOW/ENGINEER CHIEF SURGEON: Caitlin Owens MD fellow ANESTHESIA: None VERIFICATION: Prior to incision, I verified the donor ABO and recipient ABO. After the donor organ arrived to the operating room and prior to anastamosis, I visually verified that the donor identification, blood type, and other vital data were compatible with the recipient. FINDINGS: Donor type: COMPRESSED GAS PLANT WORKER (expanded criteria donor) Organ: kidney Graft Injury: [...] Goal (Adult,OB,Behavioral The patient and/or their sales training representative will achieve their patient-specific goals related [...] Goal (Adult,OB,Behavioral The patient and/or their sales training representative will achieve their patient-specific goals related [...] LARES - BEAKER POCT Performing Organization Address [place] Phon e Number FV POINT OF CARE [...] LARES - BEAKER POCT Performing Organization Address [place]/[facility] Phon e Number FV POINT OF CARE TEST, GLUCOSE POINT OF CARE TEST, GLUCOSE Tacrolimus level (02/08/2014 6:42 AM CDT) [facility] gist Method Time Signature Tacrolimus Not Provided [facility] Last Dose [facility] Tacrolimus 10.0 5.0 - [facility] Level 15.0 ug/L [facility] [...] BLOOD ORDERABLES Performing Organization Address City/[facility] Code Phon e Number [facility] [address] [place] [address] [facility] LABS (ABNORMAL) INR (02/08/2014 6:42 AM CDT) P athologist Signature INR 1.28 (H) 0.86 - 1.14 [facility] LABS Specimen Anatomical Collection Method Collection Time Receive d Time (Source) Location / / Volume Laterality Blood specimen 02/08/2014 6:42 AM 014 6:43 (specimen) CDT AM CDT Omaira Chavez PA-C LAB - BLOOD ORDERABLES Performing Organization Address City/State/ZIP Code Phon e Number [facility] [address] LABS (ABNORMAL) Basic metabolic panel (02/08/2014 6:42 AM CDT) Patholo gist Method Time Signature Sodium 144 133 - 144 [facility] mmol/L [facility] Potassium 3.9 3.4 - 5.3 [facility] mmol/L [facility] Chloride 110 (H) 94 - 109 [facility] mmol/L [facility] Carbon Dioxide 25 20 - 32 [facility] mmol/L [facility] Anion Gap 8 6 - 17 [facility] mmol/L [facility] Glucose 144 (H) 60 - 99 [facility] mg/dL [facility] Urea Nitrogen 66 (H) 7 - 30 [facility] mg/dL [facility] Creatinine 2.38 (H) 0.66 - [facility] 1.25 mg/dL [facility] GFR Estimate 28 (L) >60 [facility] mL/min/1.7 [place] m2 CAMPUS LABS GFR Estimate If 34 (L) >60 [facility] [place] mL/min/1.7 [place] [address] CAMPUS LABS Calcium 9.4 8.5 - 10.4 [facility] mg/dL [facility] Specimen Anatomical Collection Method Collection Time Receive d Time (Source) Location / / Volume Laterality Blood specimen 02/08/2014 6:42 AM 014 6:43 (specimen) CDT AM CDT Omaira Chavez PA-C LAB - BLOOD ORDERABLES Performing Organization Address City/State/ZIP Code Phon e Number [facility] [address] [place], [place] [id number] [place] [address] LABS Phosphorus (02/08/2014 6:42 AM CDT) P [...] Phon e Number [facility] [address] LABS Magnesium (02/08/2014 6:42 AM CDT) P athologist Signature Magnesium 2.2 1.6 - 2.3 [facility] mg/dL CAMPUS LABS Specimen Anatomical Collection Method Collection Time Receive d Time (Source) Location / / Volume Laterality Blood specimen 02/08/2014 6:42 AM 014 6:43 (specimen) CDT AM CDT Omaira Chavez PA-C LAB - BLOOD ORDERABLES Performing Organization Address City/State/ZIP Code Phon e Number [facility] [address] [place] [address] [facility] LABS (ABNORMAL) CBC with platelets differential (02/08/2014 6:42 AM CDT) Patholo gist Method Time Signature WBC 4.8 4.0 - [facility] 11.0 [place] 10e9/L [place] LABS RBC Count 2.56 (L) 4.4 - 5.9 [facility] 10e12/L [facility] LABS Hemoglobin 7.8 (L) 13.3 - [facility] 17.7 g/dL [facility] Hematocrit 23.5 (L) 40.0 - [facility] 53.0 % [facility] MCV 92 78 - 100 [facility] fl [facility] MCH 30.5 26.5 - [facility] 33.0 pg [facility] MCHC 33.2 31.5 - [facility] 36.5 g/dL [facility] RDW 14.5 10.0 - [facility] 15.0 % [facility] Platelet Count 70 (L) 150 - 450 [facility] 10e9/L [facility] Diff Method Automated [facility] Method [facility] % Neutrophils 86.3 % [facility] % Lymphocytes 3.1 % [facility] % Monocytes 9.4 % [facility] % Eosinophils 1.0 % [facility] % Basophils 0.0 % [facility] % Immature 0.2 % [facility] Granulocytes [facility] Absolute 4.1 1.6 - 8.3 [facility] Neutrophil 10e9/L [facility] Absolute 0.2 (L) 0.8 - 5.3 [facility] Lymphocytes 10e9/L [facility] Absolute 0.5 0.0 - 1.3 [facility] Monocytes 10e9/L [facility] Absolute 0.1 0.0 - 0.7 [facility] Eosinophils 10e9/L [facility] Absolute 0.0 0.0 - 0.2 [facility] Basophils 10e9/L [facility] Abs Immature 0.0 0 - 0.4 [facility] Granulocytes 10e9/L [facility] Specimen Anatomical Collection Method Collection Time Receive d Time (Source) Location / / Volume Laterality Blood specimen 02/08/2014 6:42 AM 014 6:43 (specimen) CDT AM CDT Omaira Chavez PA-C LAB - BLOOD ORDERABLES Performing Organization Address City/State/ZIP Code Phon e Number [address] [address] [facility] (ABNORMAL) Glucose by meter (02/07/2014 10:18 [...] LARES - ROBERT POCT Performing Organization Address City/[facility]/ZIP Code Phon e Number F[facility] POINT [...] Signature INR 1.25 (H) 0.86 - 1.14 [facility] Specimen Anatomical Collection Method Collection Time Receive d Time (Source) Location / / Volume Laterality Blood specimen 02/07/2014 4:23 AM 014 4:24 (specimen) CDT AM CDT Omaira Chavez PA-C LAB - BLOOD ORDERABLES Performing Organization Address City/State/ZIP Code Phon e Number [address] LABS (ABNORMAL) Basic metabolic panel (02/07/2014 4:23 AM CDT) Patholo gist Method Time Signature Sodium 143 133 - 144 [facility] mmol/L [facility] Potassium 4.1 3.4 - 5.3 [facility] mmol/L [facility] Chloride 109 94 - 109 [facility] mmol/L [facility] Carbon Dioxide 24 20 - 32 [facility] mmol/L [facility] Anion Gap 10 6 - 17 [facility] mmol/L [facility] Glucose 185 (H) 60 - 99 [facility] mg/dL [facility] Urea Nitrogen 77 (H) 7 - 30 [facility] mg/dL [facility] Creatinine 3.02 (H) 0.66 - [facility] 1.25 mg/dL [facility] GFR Estimate 21 (L) >60 [facility] mL/min/1.7 [place] [facility] GFR Estimate If 26 (L) >60 [facility] Black mL/min/1.7 [place] [address] [facility] LABS Calcium 9.3 8.5 - 10.4 [facility] mg/dL [facility] Specimen Anatomical Collection Method Collection Time Receive d Time (Source) Location / / Volume Laterality Blood specimen 02/07/2014 4:23 AM 014 4:24 (specimen) CDT AM CDT Omaira Chavez PA-C LAB - BLOOD ORDERABLES Performing Organization Address City/[facility]/ZIP Code Phon e Number [address] LABS Phosphorus (02/07/2014 4:23 AM CDT) [...] Phon e Number [facility] [address] [facility] Magnesium (02/07/2014 4:23 AM CDT) P athologist Signature Magnesium 2.1 1.6 - 2.3 [facility] mg/dL [place] [facility] Specimen Anatomical Collection Method Collection Time Receive d Time (Source) Location / / Volume Laterality Blood specimen 02/07/2014 4:23 AM 014 4:24 (specimen) CDT AM CDT Omaira Chavez PA-C LAB - BLOOD ORDERABLES Performing Organization Address City/State/ZIP Code Phon e Number [facility] [address] [place] [address] [facility]S (ABNORMAL) CBC with platelets differential (02/07/2014 4:23 AM CDT) Patholo gist Method Time Signature WBC 2.7 (L) 4.0 - [facility] 11.0 [facility] 10e9/L [place] [facility] RBC Count 2.80 (L) 4.4 - 5.9 [facility] 10e12/L [facility] Hemoglobin 8.5 (L) 13.3 - [facility] 17.7 g/dL [facility] Hematocrit 25.8 (L) 40.0 - [facility] 53.0 % [facility] MCV 92 78 - 100 [facility] fl [facility] MCH 30.4 26.5 - [facility] 33.0 pg [facility] MCHC 32.9 31.5 - [facility] 36.5 g/dL [facility] RDW 14.5 10.0 - [facility] 15.0 % [facility] Platelet Count 77 (L) 150 - 450 [facility] 10e9/L [facility] Diff Method Automated [facility] Method [facility] % Neutrophils 87.5 % [facility] % Lymphocytes 3.8 % [facility] % Monocytes 8.7 % [facility] % Eosinophils 0.0 % [facility] % Basophils 0.0 % [facility] % Immature 0.0 % [facility] Granulocytes [facility] Absolute 2.3 1.6 - 8.3 [facility] Neutrophil 10e9/L [facility] Absolute 0.1 (L) 0.8 - 5.3 [facility] Lymphocytes 10e9/L [facility] Absolute 0.2 0.0 - 1.3 [facility] Monocytes 10e9/L [facility] Absolute 0.0 0.0 - 0.7 [facility] Eosinophils 10e9/L [facility] Absolute 0.0 0.0 - 0.2 [facility] Basophils 10e9/L [facility] Abs Immature 0.0 0 - 0.4 [facility] Granulocytes 10e9/L [facility] Specimen Anatomical Collection Method Collection Time Receive d Time (Source) Location / / Volume Laterality Blood specimen 02/07/2014 4:23 AM 014 4:24 (specimen) CDT AM CDT Omaira Chavez PA-C LAB - BLOOD ORDERABLES Performing Organization Address City/[facility]/ZIP Code Phon e Number [address] LABS (ABNORMAL) Hemoglobin A1c (02/07/2014 4:23 AM CDT) Analysis Performed At Patho logist Time Signature Hemoglobin A1C 6.1 (H) 4.3 - 6.0 [facility] Specimen Anatomical Collection Method Collection Time Receive d Time (Source) Location / / Volume Laterality Blood specimen 02/07/2014 4:23 AM 014 4:24 (specimen) CDT AM CDT Omaira Chavez PA-C LAB - BLOOD ORDERABLES Performing Organization Address City/State/ZIP Code Phon e Number [facility] [address] LABS (ABNORMAL) Glucose by meter (02/06/2014 [...] LAB - BEAJ POCT Performing Organization Address [place]/[facility] Phon e Number [facility] POINT OF CARE TEST, GLUCOSE POINT OF CARE TEST, GLUCOSE (ABNORMAL) Hemoglobin (02/06/2014 4:59 PM CDT) P athologist Signature Hemoglobin 8.8 (L) 13.3 - 17.7 [facility] g/dL [place] [facility] Specimen Anatomical Collection Method Collection Time Receive d Time (Source) Location / / Volume Laterality Blood specimen 02/06/2014 4:59 PM 014 5:12 (specimen) CDT PM CDT Omaira Chavez PA-C LAB - BLOOD ORDERABLES Performing Organization Address City/[facility]/ZIP Code Phon e Number [address] [address] [facility]S (ABNORMAL) Glucose by meter (02/06/2014 12:01 PM CDT) P athologist Signature Glucose 181 (H) 60 - 99 POINT OF CARE mg/dL TEST, GLUCOSE Specimen Anatomical Collection Method Collection Time Receive d Time (Source) Location / / Volume Laterality 02/06/2014 12:01 02/06/2014 PM CDT 12:05 PM CDT Migel Merchant MD LAB - BEAKER POCT Performing Organization Address City/[facility]/ZIP Code Phon e Number [facility] POINT OF CARE TEST, GLUCOSE POINT OF CARE TEST, GLUCOSE (ABNORMAL) Partial thromboplastin time (02/06/2014 5:57 AM CDT) athologist Signature PTT 154 (HH) 22 - 37 sec [facility] Comment: Critical Value called to and read back Whitney Poon RN AT 0642. PW Specimen Anatomical Collection Method Collection Time Receive d Time (Source) Location / / Volume Laterality 02/06/2014 5:57 AM 4 6:03 CDT AM CDT Adeline Diaz MD LAB - BLOOD ORDERABLES Performing Organization Address City/[facility]/ZIP Code Phon e Number [facility] [address] LABS Heparin Xa (10a) Level (02/06/2014 5:57 AM CDT) athologist Signature Heparin 10A 0.92 IU/mL [facility] LABS Comment: Therapeutic Range: ?? UFH: [...] Phon e Number [facility] [address] LABS (ABNORMAL) INR (02/06/2014 5:57 AM CDT) athologist Signature INR 1.32 (H) 0.86 - 1.14 [facility] Specimen Anatomical Collection Method Collection Time Receive d Time (Source) Location / / Volume Laterality Blood specimen 02/06/2014 5:57 AM 014 6:03 (specimen) CDT AM CDT Omaira Chavez PA-C LAB - BLOOD ORDERABLES Performing Organization Address City/[facility]/ZIP Code Phon e Number [facility] [address] LABS (ABNORMAL) Basic metabolic panel (02/06/2014 5:57 AM CDT) [facility] Method Time Signature Sodium 142 133 - 144 [facility] mmol/L [facility] Potassium 4.7 3.4 - 5.3 [facility] mmol/L [facility] Chloride 106 94 - 109 [facility] mmol/L [facility] Carbon Dioxide 28 20 - 32 [facility] mmol/L [facility] Anion Gap 8 6 - 17 [facility] mmol/L [facility] Glucose 196 (H) 60 - 99 [facility] mg/dL [facility] Urea Nitrogen 71 (H) 7 - 30 [facility] mg/dL [facility] Creatinine 3.96 (H) 0.66 - [facility] 1.25 mg/dL [facility] GFR Estimate 15 (L) >60 [facility] mL/min/1.7 [place] [facility] LABS GFR Estimate If 19 (L) >60 [facility] Black mL/min/1.[address] LABS Calcium 9.4 8.5 - 10.4 [facility] mg/dL [facility] Specimen Anatomical Collection Method Collection Time Receive d Time (Source) Location / / Volume Laterality Blood specimen 02/06/2014 5:57 AM 014 6:03 (specimen) CDT AM CDT Omaira Chavez PA-C LAB - BLOOD ORDERABLES Performing Organization Address City/State/ZIP Code Phon e Number [facility] [address] LABS Phosphorus (02/06/2014 5:57 AM CDT) [...] Phon e Number [facility] 500 [place], [place] [id number] [place] [address] LABS Magnesium (02/06/2014 5:57 AM CDT) P athologist Signature Magnesium 1.9 1.6 - 2.3 [facility] mg/dL [place] [facility] Specimen Anatomical Collection Method Collection Time Receive d Time (Source) Location / / Volume Laterality Blood specimen 02/06/2014 5:57 AM 014 6:03 (specimen) CDT AM CDT Omaira Chavez PA-C LAB - BLOOD ORDERABLES Performing Organization Address City/[facility]/ZIP Code Phon e Number [facility] [address] [place] [address] [facility] LABS (ABNORMAL) CBC with platelets differential (02/06/2014 5:57 AM CDT) Patholo gist Method Time Signature WBC 5.1 4.0 - [facility] 11.0 [facility] 10e9/L [place] [facility] RBC Count 3.13 (L) 4.4 - 5.9 [facility] 10e12/L [facility] Hemoglobin 9.6 (L) 13.3 - [facility] 17.7 g/dL [facility] Hematocrit 29.0 (L) 40.0 - [facility] 53.0 % [facility] MCV 93 78 - 100 [facility] fl [facility] MCH 30.7 26.5 - [facility] 33.0 pg [facility] MCHC 33.1 31.5 - [facility] 36.5 g/dL [facility] RDW 14.5 10.0 - [facility] 15.0 % [facility] Platelet Count 85 (L) 150 - 450 [facility] 10e9/L [facility] Diff Method Automated [facility] Method [facility] % Neutrophils 86.0 % [facility] % Lymphocytes 5.1 % [facility] % Monocytes 8.7 % [facility] % Eosinophils 0.0 % [facility] % Basophils 0.0 % [facility] % Immature 0.2 % [facility] Granulocytes [facility] Absolute 4.4 1.6 - 8.3 [facility] Neutrophil 10e9/L [facility] Absolute 0.3 (L) 0.8 - 5.3 [facility] Lymphocytes 10e9/L [facility] Absolute 0.4 0.0 - 1.3 [facility] Monocytes 10e9/L [facility] Absolute 0.0 0.0 - 0.7 [facility] Eosinophils 10e9/L [facility] Absolute 0.0 0.0 - 0.2 [facility] Basophils 10e9/L [facility] Abs Immature 0.0 0 - 0.4 [facility] Granulocytes 10e9/L [facility] Specimen Anatomical Collection Method Collection Time Receive d Time (Source) Location / / Volume Laterality Blood specimen 02/06/2014 5:57 AM 014 6:03 (specimen) CDT AM CDT Omaira Chavez PA-C LAB - BLOOD ORDERABLES Performing Organization Address City/State/ZIP Code Phon e Number [facility] [address] [place], [place] [id number] [place] [address] LABS (ABNORMAL) Lipid panel reflex to direct LDL (02/06/2014 5:57 AM CDT) P athologist Signature Cholesterol 126 <200 mg/dL [facility] Comment: LDL Cholesterol is the primary guide to therapy. The NCEP recommends further evaluation of: patients with cholesterol greater than 200 mg/dL if additional risk facto rs are present, cholesterol greater than 240 mg/dL, triglycerides greater than 1 50 mg/dL, or HDL less than 40 mg/dL. Triglycerides 100 0 - 150 mg/dL [facility] [place] [facility] HDL Cholesterol 35 (L) >40 mg/dL [facility] [place] [facility] LDL Cholesterol Calculated 71 0 - 129 mg/dL [facility] Comment: LDL Cholesterol is the primary guide to therapy: LDL-cholesterol goal in high risk patients is <100 mg/dL and in very high risk patients is <70 mg/dL. VLDL-Cholesterol 20 0 - 30 mg/dL [facility] Cholesterol/HDL Ratio 3.6 0.0 - 5.0 [facility] UNI [facility]ERSITY [place] [facility]S Specimen Anatomical Collection Method Collection Time Receive d Time (Source) Location / / Volume Laterality Blood specimen 02/06/2014 5:57 AM 06/18/2 014 6:03 (specimen) CDT AM CDT Omaira Chavez PA-C LAB - BLOOD ORDERABLES Performing Organization Address City/State/ZIP Code Phon e Number [facility] [address] [place] [address] [facility] Tacrolimus level (02/06/2014 5:57 AM CDT) [facility] gist Method Time Signature Tacrolimus S Negative [facility] Last Dose [facility] Tacrolimus 12.7 5.0 - [facility] Level 15.0 ug/L [facility] [...] BLOOD ORDERABLES Performing Organization Address City/[facility]/ZIP Code Phon e Number [facility] [address] LABS (ABNORMAL) Glucose by meter (02/06/2014 3:21 AM CDT) P athologist Signature Glucose 216 (H) 60 - 99 POINT OF CARE mg/dL TEST, GLUCOSE Specimen Anatomical Collection Method Collection Time Receive d Time (Source) Location / / Volume Laterality 02/06/2014 3:21 AM 4 3:25 CDT AM CDT Migel Merchant MD LAB - BEAKER POCT Performing Organization Address City/[facility]/ZIP Code Phon e Number [facility] POINT OF CARE TEST, GLUCOSE POINT OF CARE TEST, GLUCOSE (ABNORMAL) Hemoglobin (02/06/2014 1:02 AM CDT) athologist Signature Hemoglobin 10.2 (L) 13.3 - [facility] 17.7 g/dL [place] [facility] Specimen Anatomical Collection Method Collection Time Receive d Time (Source) Location / / Volume Laterality Blood specimen 02/06/2014 1:02 AM 014 1:11 (specimen) CDT AM CDT Deysi Alicea MD LAB - BLOOD ORDERABLES Performing Organization Address City/[facility]/ZIP Code Phon e Number [address] LABS (ABNORMAL) Glucose by meter (02/05/2014 10:23 PM CDT) P athologist Signature Glucose 254 (H) 60 - 99 POINT OF CARE mg/dL TEST, GLUCOSE Specimen Anatomical Collection Method Collection Time Receive d Time (Source) Location / / Volume Laterality 02/05/2014 10:23 02/05/2014 PM CDT 10:25 PM CDT Migel Merchant MD LAB - BEAKER POCT Performing Organization Address City/[facility]/ZIP Code Phon e Number [facility] POINT OF CARE TEST, GLUCOSE POINT OF CARE TEST, GLUCOSE Heparin 10a Level (02/05/2014 7:32 PM CDT) P athologist Signature Heparin 10A 0.64 IU/mL [facility] LABS Comment: Therapeutic Range: ?? UFH: [...] Organization Address City/State/ZIP Code Phon e Number [address] LABS (ABNORMAL) Glucose by meter (02/05/2014 [...] LARES - BEAJ POCT Performing Organization Address City/[facility]/ZIP Code Phon e Number FV POINT [...] LARES - BEAKER POCT Performing Organization Address City/[facility]/ZIP Code Phon e Number [facility] POINT OF CARE TEST, GLUCOSE POINT OF CARE TEST, GLUCOSE (ABNORMAL) INR (02/05/2014 12:04 PM CDT) P athologist Signature INR 1.24 (H) 0.86 - 1.14 [facility] Specimen Anatomical Collection Method Collection Time Receive d Time (Source) Location / / Volume Laterality Blood specimen 02/05/2014 12:04 4 (specimen) PM CDT 12:10 PM CDT Teresa Wright [facility] LAB - BLOOD ORDERABLES Performing Organization Address City/[facility]/ZIP Code Phon e Number [address] [address] [facility] LABS (ABNORMAL) CBC with platelets (02/05/2014 12:04 PM CDT) Patholo gist Method Time Signature WBC 7.4 4.0 - 11.0 [facility] 10e9/L [facility] RBC Count 3.31 (L) 4.4 - 5.9 [facility] 10e12/L [facility] Hemoglobin 10.3 (L) 13.3 - [facility] 17.7 g/dL [facility] Hematocrit 31.0 (L) 40.0 - [facility] 53.0 % [facility] MCV 94 78 - 100 [facility] fl [facility] MCH 31.1 26.5 - [facility] 33.0 pg [facility] MCHC 33.2 31.5 - [facility] 36.5 g/dL [facility] RDW 14.7 10.0 - [facility] 15.0 % [facility] Platelet Count 91 (L) 150 - 450 [facility] 10e9/L [facility] Specimen Anatomical Collection Method Collection Time Receive d Time (Source) Location / / Volume Laterality Blood specimen 02/05/2014 12:04 4 (specimen) PM CDT 12:10 PM CDT Omaira Chavez PA-C LAB - BLOOD ORDERABLES Performing Organization Address City/State/ZIP Code Phon e Number [id number] [place] [address] LABS (ABNORMAL) Glucose by meter (02/05/2014 11:25 [...] LARES - ROBERT POCT Performing Organization Address City/[facility]/ZIP Code Phon e Number FV POINT [...] LAB - BEAJ POCT Performing Organization Address City/[facility]/ZIP Code Phon e Number [facility] POINT OF CARE TEST, GLUCOSE POINT OF CARE TEST, GLUCOSE (ABNORMAL) Basic metabolic panel (02/05/2014 7:02 AM CDT) [facility] gist Method Time Signature Sodium 143 133 - 144 [facility] mmol/L [facility] Potassium 4.3 3.4 - 5.3 [facility] mmol/L [facility] Chloride 107 94 - 109 [facility] mmol/L [facility] Carbon Dioxide 25 20 - 32 [facility] mmol/L [facility] Anion Gap 10 6 - 17 [facility] mmol/L [facility] Glucose 123 (H) 60 - 99 [facility] mg/dL [facility] Urea Nitrogen 66 (H) 7 - 30 [facility] mg/dL [facility] Creatinine 4.77 (H) 0.66 - [facility] 1.25 mg/dL [facility] GFR Estimate 12 (L) >60 [facility] mL/min/1.7 [facility] LABS GFR Estimate If 15 (L) >60 [facility] Black mL/min/1.7 [place] [address] CAMPUS LABS Calcium 9.4 8.5 - 10.4 [facility] mg/dL [facility] Specimen Anatomical Collection Method Collection Time Receive d Time (Source) Location / / Volume Laterality Blood specimen 02/05/2014 7:02 AM 014 7:05 (specimen) CDT AM CDT Omaira Chavez PA-C LAB - BLOOD ORDERABLES Performing Organization Address City/[facility]/ZIP Code Phon e Number [facility] [address] LABS (ABNORMAL) Phosphorus (02/05/2014 7:02 AM CDT) P athologist Signature Phosphorus 5.7 (H) 2.5 - 4.5 [facility] mg/dL [place] LABS Specimen Anatomical Collection Method Collection Time Receive d Time (Source) Location / / Volume Laterality Blood specimen 02/05/2014 7:02 AM 014 7:05 (specimen) CDT AM CDT Omaira Chavez PA-C LAB - BLOOD ORDERABLES Performing Organization Address City/[facility]/ZIP Code Phon e Number [facility] [address] LABS Magnesium (02/05/2014 7:02 AM CDT) P athologist Signature Magnesium 2.0 1.6 - 2.3 [facility] mg/dL [place] [facility] Specimen Anatomical Collection Method Collection Time Receive d Time (Source) Location / / Volume Laterality Blood specimen 02/05/2014 7:02 AM 014 7:05 (specimen) CDT AM CDT Omaira Chavez PA-C LAB - BLOOD ORDERABLES Performing Organization Address City/[facility]/ZIP Code Phon e Number [facility] 500 [place], [place] [phone] [place] [address] LABS (ABNORMAL) CBC with platelets differential (02/05/2014 7:02 AM CDT) Patholo gist Method Time Signature WBC 8.9 4.0 - [facility] 11.0 [place] 10e9/L [place] LABS RBC Count 3.20 (L) 4.4 - 5.9 [facility] 10e12/L [facility] Hemoglobin 9.7 (L) 13.3 - [facility] 17.7 g/dL [facility] Hematocrit 30.0 (L) 40.0 - [facility] 53.0 % [facility] MCV 94 78 - 100 [facility] fl [facility] MCH 30.3 26.5 - [facility] 33.0 pg [facility] MCHC 32.3 31.5 - [facility] 36.5 g/dL [facility] RDW 14.6 10.0 - [facility] 15.0 % [facility] Platelet Count 96 (L) 150 - 450 [facility] 10e9/L [facility] Diff Method Automated [facility] Method [facility] % Neutrophils 90.2 % [facility] LABS % Lymphocytes 4.4 % [facility] % Monocytes 5.2 % [facility] % Eosinophils 0.0 % [facility] % Basophils 0.0 % [facility] LABS % Immature 0.2 % [facility] Granulocytes [facility] Absolute 8.1 1.6 - 8.3 [facility] Neutrophil 10e9/L [facility] Absolute 0.4 (L) 0.8 - 5.3 [facility] Lymphocytes 10e9/L [facility] Absolute 0.5 0.0 - 1.3 [facility] Monocytes 10e9/L [facility] Absolute 0.0 0.0 - 0.7 [facility] Eosinophils 10e9/L [facility] Absolute 0.0 0.0 - 0.2 [facility] Basophils 10e9/L [facility] Abs Immature 0.0 0 - 0.4 [facility] Granulocytes 10e9/L [facility] Specimen Anatomical Collection Method Collection Time Receive d Time (Source) Location / / Volume Laterality Blood specimen 02/05/2014 7:02 AM 014 7:05 (specimen) CDT AM CDT Omaira Chavez PA-C LAB - BLOOD ORDERABLES Performing Organization Address City/State/ZIP Code Phon e Number [phone] [place] [address] LABS (ABNORMAL) Parathormone intact (02/05/2014 7:02 AM CDT) Patholo gist Method Time Signature Parathyroid 362 (H) 12 - 72 [facility] Hormone Intact pg/mL [facility] Specimen Anatomical Collection Method Collection Time Receive d Time (Source) Location / / Volume Laterality Blood specimen 02/05/2014 7:02 AM 014 7:05 (specimen) CDT AM CDT Sina Robison MD LAB - BLOOD ORDERABLES Performing Organization Address [place] Code Phon e Number [address] LABS (ABNORMAL) Ferritin (02/05/2014 7:02 AM CDT) P athologist Signature Ferritin 932 (H) 20 - 300 [facility] ng/mL [place] [facility] Specimen Anatomical Collection Method Collection Time Receive d Time (Source) Location / / Volume Laterality Blood specimen 02/05/2014 7:02 AM 014 7:05 (specimen) CDT AM CDT Sina Robison MD LAB - BLOOD ORDERABLES Performing Organization Address [place]/[facility] Code Phon e Number [address] LABS (ABNORMAL) Iron and iron binding capacity (02/05/2014 7:02 AM CDT) Analysis Performed At Patho logist Time Signature Iron 119 35 - 180 [facility] ug/dL [facility] Iron Binding 207 (L) 240 - 430 [facility] Cap ug/dL [facility] Iron Saturation 58 (H) 15 - 46 % [facility] Index [facility] Specimen Anatomical Collection Method Collection Time Receive d Time (Source) Location / / Volume Laterality Blood specimen 02/05/2014 7:02 AM 014 7:05 (specimen) CDT AM CDT Sina Robison MD LAB - BLOOD ORDERABLES Performing Organization Address City/[facility]/ZIP Code Phon e Number [facility] [address] LABS (ABNORMAL) Glucose by meter (02/05/2014 [...] LAB - BEAKER POCT Performing Organization Address City/[facility]/ZIP Code Phon e Number FV POINT [...] LAB - BEAJ POCT Performing Organization Address City/[facility]/ZIP Code Phon e Number FV POINT [...] LAB - ROBERT POCT Performing Organization Address City/[facility]/ZIP Code Phon e Number FV POINT [...] LARES - ROBERT POCT Performing Organization Address City/[facility]/ZIP Code Phon e Number FV POINT [...] LARES - ROBERT POCT Performing Organization Address City/[facility]/ZIP Code Phon e Number FV POINT [...] LARES - ROBERT POCT Performing Organization Address City/[facility]/ZIP Code Phon e Number FV POINT [...] Carr MD ECG ORDERABLES Performing Organization Address City/[facility]/ZIP Code Phon e Number RADIOLOGY RESULTS (ABNORMAL) Glucose by meter (02/04/2014 10:56 PM CDT) P athologist Signature Glucose 161 (H) 60 - 99 POINT OF CARE mg/dL TEST, GLUCOSE Specimen Anatomical Collection Method Collection Time Receive d Time (Source) Location / / Volume Laterality 02/04/2014 10:56 02/04/2014 PM CDT 11:00 PM CDT Migel LARES - ROBERT POCT Performing Organization Address City/[facility]/ZIP Code Phon e Number FV POINT [...] LARES - ROBERT POCT Performing Organization Address City/[facility]/ZIP Code Phon e Number FV POINT [...] LAB - ROBERT POCT Performing Organization Address City/[facility]/ZIP Code Phon e Number FV POINT [...] Signature Troponin I 0.016 0.000 - [facility] 0.034 ug/L [place] LABS Specimen Anatomical Collection Method Collection Time Receive d Time (Source) Location / / Volume Laterality Blood specimen 02/04/2014 7:10 PM 014 7:23 (specimen) CDT PM CDT Adeline Diaz MD LAB - BLOOD ORDERABLES Performing Organization Address City/[facility]/ZIP Code Phon e Number [phone] [place] [address] LABS (ABNORMAL) Glucose by meter (02/04/2014 7:01 PM CDT) P athologist Signature Glucose 157 (H) 60 - 99 POINT OF CARE mg/dL TEST, GLUCOSE Specimen Anatomical Collection Method Collection Time Receive d Time (Source) Location / / Volume Laterality 02/04/2014 7:01 PM 4 7:05 CDT PM CDT Migel Merchant MD LAB - BEAKER POCT Performing Organization Address City/[facility]/ZIP Code Phon e Number FV POINT [...] LAB - BEAKER POCT Performing Organization Address City/[facility]/ZIP Code Phon e Number FV POINT [...] 4:10 CDT PM CDT Migel LARES - [facility] [...] LAB - BEAKER POCT Performing Organization Address City/[facility]/ZIP Code Phon e Number FV POINT [...] I (02/04/2014 12:42 PM CDT) athologist [facility] [place] Troponin I ES 0.025 0.000 - [facility] 0.034 ug/L CAMPUS LABS Specimen Anatomical Collection Method Collection Time Receive d Time (Source) Location / / Volume Laterality Blood specimen 02/04/2014 12:42 4 (specimen) PM CDT 12:45 PM CDT Adeline Diaz MD LAB - BLOOD ORDERABLES Performing Organization Address City/State/ZIP Code Phon e Number [facility] [address] [place] [address] [facility] LABS (ABNORMAL) Glucose by meter (02/04/2014 12:27 PM CDT) P athologist Signature Glucose 140 (H) 60 - 99 POINT OF CARE mg/dL TEST, GLUCOSE Specimen Anatomical Collection Method Collection Time Receive d Time (Source) Location / / Volume Laterality 02/04/2014 12:27 02/04/2014 PM CDT 12:30 PM CDT Migel LARES - ROBERT POCT Performing Organization Address [place]/[facility]/ZIP Code Phon e Number FV POINT [...] LARES - BEAJ POCT Performing Organization Address City/[facility]/ZIP Code Phon e Number FV POINT [...] LAB - ROBERT POCT Performing Organization Address [place]/[facility]/ZIP Code Phon e Number FV POINT OF CARE TEST, GLUCOSE POINT OF CARE TEST, GLUCOSE EKG 12-lead, complete (02/04/2014 9:21 AM CDT) [facility]ist Method Time Signature Interpretation ECG Click View RADIOLOGY Image link RESULTS to view waveform and result Specimen (Source) Anatomical Collection Method Collection Time Re ceived Time Location / / Volume Laterality 02/04/2014 9:21 AM CDT Omaira Chavez PA-C ECG ORDERABLES Performing Organization Address [place]/[facility]/ZIP [facility] Phon e Number RADIOLOGY RESULTS (ABNORMAL) Glucose by meter (02/04/2014 9:02 AM CDT) P athologist Signature Glucose 203 (H) 60 - 99 POINT OF CARE mg/dL TEST, GLUCOSE Specimen Anatomical Collection Method Collection Time Receive d Time (Source) Location / / Volume Laterality 02/04/2014 9:02 AM 4 9:05 CDT AM CDT Migel Merchant MD LAB - ROBERT POCT Performing Organization Address [place]/[facility]/ZIP Code Phon e Number FV POINT [...] LAB - ROBERT POCT Performing Organization Address [place]/[facility]/ZIP [facility] [place] Phon e Number FV POINT OF CARE [...] LAB - ROBERT POCT Performing Organization Address [place]/[facility] Phon e Number FV POINT OF CARE [...] Owens MD ECG ORDERABLES Performing Organization Address [place]/[facility] Phon e Number RADIOLOGY RESULTS (ABNORMAL) Glucose [...] Troponin I ES <0.012 0.000 - [facility] 0.034 ug/L CAMPUS LABS Specimen Anatomical Collection Method Collection Time Receive d Time (Source) Location / / Volume Laterality 02/04/2014 5:49 AM 201 4 5:51 CDT AM CDT Caitlin Owens MD LAB - BLOOD ORDERABLES Performing Organization Address City/State/ZIP Code Phon e Number [facility] [address] LABS (ABNORMAL) Basic metabolic panel (02/04/2014 5:49 AM CDT) Patholo gist Method Time Signature Sodium 142 133 - 144 [facility] mmol/L [facility] Potassium 4.9 3.4 - 5.3 [facility] mmol/L [facility] Chloride 107 94 - 109 [facility] mmol/L [facility] [place] [facility] Carbon Dioxide 23 20 - 32 [facility] mmol/L [facility] Anion Gap 12 6 - 17 [facility] mmol/L [facility] Glucose 151 (H) 60 - 99 [facility] mg/dL [facility] [place] [facility] Urea Nitrogen 57 (H) 7 - 30 [facility] mg/dL [facility] [place] [facility] Creatinine 5.94 (H) 0.66 - [facility] 1.25 mg/dL [facility] GFR Estimate 10 (L) >60 [facility] mL/min/1.7 [facility] m2 CAMPUS LABS GFR Estimate If 12 (L) >60 [facility] Black mL/min/1.7 [place] [address] CAMPUS LABS Calcium 9.4 8.5 - 10.4 [facility] mg/dL [facility] LABS Specimen Anatomical Collection Method Collection Time Receive d Time (Source) Location / / Volume Laterality Blood specimen 02/04/2014 5:49 AM 014 5:51 (specimen) CDT AM CDT Omaira Chavez PA-C LAB - BLOOD ORDERABLES Performing Organization Address City/State/ZIP Code Phon e Number [facility] [address] LABS (ABNORMAL) Phosphorus (02/04/2014 5:49 AM CDT) athologist Signature Phosphorus 6.3 (H) 2.5 - 4.5 [facility] mg/dL [place] LABS Specimen Anatomical Collection Method Collection Time Receive d Time (Source) Location / / Volume Laterality Blood specimen 02/04/2014 5:49 AM 014 5:51 (specimen) CDT AM CDT Omaira Chavez PA-C LAB - BLOOD ORDERABLES Performing Organization Address City/[facility] Phon e Number [facility] [address] LABS Magnesium (02/04/2014 5:49 AM CDT) athologist Signature Magnesium 2.1 1.6 - 2.3 [facility] mg/dL [place] LABS Specimen Anatomical Collection Method Collection Time Receive d Time (Source) Location / / Volume Laterality Blood specimen 02/04/2014 5:49 AM 014 5:51 (specimen) CDT AM CDT Omaira Chavez PA-C LAB - BLOOD ORDERABLES Performing Organization Address City/State/[facility] Code Phon e Number [facility] [address] [place] [address] [facility] LABS (ABNORMAL) CBC with platelets differential (02/04/2014 5:49 AM CDT) [facility] gist Method Time Signature WBC 13.8 (H) 4.0 - [facility] 11.0 [place] 10e9/L [place] LABS RBC Count 3.10 (L) 4.4 - 5.9 [facility] 10e12/L [facility] Hemoglobin 9.5 (L) 13.3 - [facility] 17.7 g/dL [facility] Hematocrit 28.7 (L) 40.0 - [facility] 53.0 % [facility] MCV 93 78 - 100 [facility] fl [facility] MCH 30.6 26.5 - [facility] 33.0 pg [facility] MCHC 33.1 31.5 - [facility] 36.5 g/dL [facility] RDW 14.6 10.0 - [facility] 15.0 % [facility] Platelet Count 91 (L) 150 - 450 [facility] 10e9/L [facility] LABS Diff Method Automated [facility] Method [facility] % Neutrophils 95.8 % [facility] % Lymphocytes 1.2 % [facility] % Monocytes 2.8 % [facility] % Eosinophils 0.0 % [facility] [place] [facility] LABS % Basophils 0.0 % [facility] % Immature 0.2 % [facility] Granulocytes [facility] Absolute 13.2 (H) 1.6 - 8.3 [facility] Neutrophil 10e9/L [facility] Absolute 0.2 (L) 0.8 - 5.3 [facility] Lymphocytes 10e9/L [facility] Absolute 0.4 0.0 - 1.3 [facility] Monocytes 10e9/L [facility] Absolute 0.0 0.0 - 0.7 [facility] Eosinophils 10e9/L [facility] Absolute 0.0 0.0 - 0.2 [facility] Basophils 10e9/L [facility] Abs Immature 0.0 0 - 0.4 [facility] Granulocytes 10e9/L [facility] Specimen Anatomical Collection Method Collection Time Receive d Time (Source) Location / / Volume Laterality Blood specimen 02/04/2014 5:49 AM 014 5:51 (specimen) CDT AM CDT Omaira Chavez PA-C LAB - BLOOD ORDERABLES Performing Organization Address City/State/ZIP Code Phon e Number [phone] [place] [address] LABS (ABNORMAL) Glucose by meter (02/04/2014 5:33 [...] LARES - ROBERT POCT Performing Organization Address [place]/[facility]/ZIP Code Phon e Number FV POINT OF CARE TEST, GLUCOSE POINT OF CARE TEST, GLUCOSE (ABNORMAL) Glucose by meter (02/04/2014 3:01 AM CDT) P athologist Signature Glucose 122 (H) 60 - 99 POINT OF CARE mg/dL TEST, GLUCOSE Specimen Anatomical Collection Method Collection Time Receive d Time (Source) Location / / Volume Laterality 02/04/2014 3:01 AM 4 3:05 CDT AM CDT Miegl LARES - ROBERT POCT Performing Organization Address [place]/[facility] Code Phon e Number FV POINT [...] LARES - ROBERT POCT Performing Organization Address [place]/[facility] Code Phon e Number FV POINT [...] CDT Migel JONES POCT Performing Organization Address [place]/[facility] Code Phon e Number FV POINT [...] LARES - ROBERT POCT Performing Organization Address City/[facility]/ZIP Code Phon e Number FV POINT OF CARE TEST, GLUCOSE POINT OF CARE TEST, GLUCOSE Potassium (02/03/2014 10:16 PM CDT) athologist Signature Potassium 4.8 3.4 - 5.3 [facility] mmol/L CAMPUS LABS Specimen Anatomical Collection Method Collection Time Receive d Time (Source) Location / / Volume Laterality Blood specimen 02/03/2014 10:16 4 (specimen) PM CDT 10:19 PM CDT Caitlin Owens MD LAB - BLOOD ORDERABLES Performing Organization Address [place]/[facility] Phon e Number [address] LABS (ABNORMAL) Hemoglobin (02/03/2014 10:16 PM CDT) athologist Signature Hemoglobin 9.4 (L) 13.3 - 17.7 [facility] g/dL [place] LABS Specimen Anatomical Collection Method Collection Time Receive d Time (Source) Location / / Volume Laterality Blood specimen 02/03/2014 10:16 4 (specimen) PM CDT 10:19 PM CDT Caitlin Owens MD LAB - BLOOD ORDERABLES Performing Organization Address City/[facility]/ZIP [facility] Phon e Number [facility] [address] LABS (ABNORMAL) Glucose by meter (02/03/2014 9:55 PM CDT) athologist Signature Glucose 167 (H) 60 - 99 POINT OF CARE mg/dL TEST, GLUCOSE Specimen Anatomical Collection Method Collection Time Receive d Time (Source) Location / / Volume Laterality 02/03/2014 9:55 PM 4 CDT 10:00 PM CDT Migel Merchant MD LAB - BEAJ POCT Performing Organization Address City/[facility]/ZIP Code Phon e Number FV POINT [...] LAB - BEAJ POCT Performing Organization Address City/[facility]/ZIP Code Phon e Number FV POINT [...] Signature Potassium 4.7 3.4 - 5.3 [facility] mmol/L CAMPUS LABS Specimen Anatomical Collection Method Collection Time Receive d Time (Source) Location / / Volume Laterality Blood specimen 02/03/2014 6:52 PM 014 6:53 (specimen) CDT PM CDT Caitlin Owens MD LAB - BLOOD ORDERABLES Performing Organization Address City/[facility]/ZIP Code Phon e Number [facility] [address] LABS (ABNORMAL) Hemoglobin (02/03/2014 6:52 PM CDT) athologist Signature Hemoglobin 9.6 (L) 13.3 - 17.7 [facility] g/dL [place] LABS Specimen Anatomical Collection Method Collection Time Receive d Time (Source) Location / / Volume Laterality Blood specimen 02/03/2014 6:52 PM 014 6:53 (specimen) CDT PM CDT Caitlin Owens MD LAB - BLOOD ORDERABLES Performing Organization Address City/[facility]/ZIP Code Phon e Number [facility] [address] LABS (ABNORMAL) Glucose by meter (02/03/2014 6:00 PM CDT) athologist Signature Glucose 140 (H) 60 - 99 POINT OF CARE mg/dL TEST, GLUCOSE Specimen Anatomical Collection Method Collection Time Receive d Time (Source) Location / / Volume Laterality 02/03/2014 6:00 PM 4 6:05 CDT PM CDT Migel JONES POCT Performing Organization Address City/[facility]/ZIP Code Phon e Number FV POINT [...] CDT Migel JONES POCT Performing Organization Address City/[facility]/ZIP Code Phon e Number FV POINT [...] LAB - BEAKER POCT Performing Organization Address City/[facility]/ZIP Code Phon e Number FV POINT [...] LAB - BEAKER POCT Performing Organization Address [place]/[facility] Phon e Number FV POINT OF CARE TEST, GLUCOSE POINT OF CARE TEST, GLUCOSE Potassium (02/03/2014 1:41 PM CDT) athologist Signature Potassium 4.7 3.4 - 5.3 [facility] mmol/L CAMPUS LABS Specimen Anatomical Collection Method Collection Time Receive d Time (Source) Location / / Volume Laterality Blood specimen 02/03/2014 1:41 PM 014 1:43 (specimen) CDT PM CDT Caitlin Owens MD LAB - BLOOD ORDERABLES Performing Organization Address [place]/[facility] Code Phon e Number [address] LABS (ABNORMAL) Hemoglobin (02/03/2014 1:41 PM CDT) athologist Signature Hemoglobin 9.8 (L) 13.3 - 17.7 [facility] g/dL [place] LABS Specimen Anatomical Collection Method Collection Time Receive d Time (Source) Location / / Volume Laterality Blood specimen 02/03/2014 1:41 PM 014 1:43 (specimen) CDT PM CDT Caitlin Owens MD LAB - BLOOD ORDERABLES Performing Organization Address City/[facility] Phon e Number [address] UNIVERSITY [facility]AMPUS LABS (ABNORMAL) Glucose by [...] LAB - ROBERT POCT Performing Organization Address City/[facility]/ZIP Code Phon e Number FV POINT [...] LAB - BEAKER POCT Performing Organization Address City/[facility]/ZIP Code Phon e Number FV POINT OF CARE TEST, GLUCOSE POINT OF CARE TEST, GLUCOSE Potassium (02/03/2014 10:11 AM CDT) P athologist Signature Potassium 4.8 3.4 - 5.3 [facility] mmol/L [place] LABS Specimen Anatomical Collection Method Collection Time Receive d Time (Source) Location / / Volume Laterality Blood specimen 02/03/2014 10:11 4 (specimen) AM CDT 10:23 AM CDT Caitlin Owens MD LAB - BLOOD ORDERABLES Performing Organization Address City/[facility]/ZIP Code Phon e Number [facility] [address] [place], [place] [phone] [place] [address] LABS (ABNORMAL) Hemoglobin (02/03/2014 10:11 AM CDT) athologist Signature Hemoglobin 9.7 (L) 13.3 - 17.7 [facility] g/dL [place] LABS Specimen Anatomical Collection Method Collection Time Receive d Time (Source) Location / / Volume Laterality Blood specimen 02/03/2014 10:11 4 (specimen) AM CDT 10:23 AM CDT Caitlin Owens MD LAB - BLOOD ORDERABLES Performing Organization Address City/[facility]/ZIP Code Phon e Number [facility] [address] [place], [place] [id number] [place] [address] LABS (ABNORMAL) Glucose by meter (02/03/2014 9:58 AM CDT) athologist Signature Glucose 168 (H) 60 - 99 POINT OF CARE mg/dL TEST, GLUCOSE Specimen Anatomical Collection Method Collection Time Receive d Time (Source) Location / / Volume Laterality 02/03/2014 9:58 AM 4 CDT 10:00 AM CDT Migel LARES - ROBERT POCT Performing Organization Address City/[facility]/ZIP Code Phon e Number FV POINT [...] LARES - ROBERT POCT Performing Organization Address City/[facility]/ZIP Code Phon e Number FV POINT [...] LARES - ROBERT POCT Performing Organization Address [place]/[facility] Phon e Number FV POINT OF CARE [...] LARES - ROBERT POCT Performing Organization Address [place]/[facility] Phon e Number FV POINT OF CARE [...] LARES - BEAJ POCT Performing Organization Address [place]/[facility] Phon e Number FV POINT OF CARE TEST, GLUCOSE POINT OF CARE TEST, GLUCOSE (ABNORMAL) Basic metabolic panel (02/03/2014 5:38 AM CDT) [facility] gist Method Time Signature Sodium 141 133 - 144 [facility] mmol/L [facility] [place] LAB[facility] Potassium 4.4 3.4 - 5.3 [facility] mmol/L [facility] Chloride 105 94 - 109 [facility] mmol/L [facility] Carbon Dioxide 20 20 - 32 [facility] mmol/L [facility] [place] [facility] Anion Gap 15 6 - 17 [facility] mmol/L [facility] Glucose 170 (H) 60 - 99 [facility] mg/dL [facility] Urea Nitrogen 49 (H) 7 - 30 [facility] mg/dL [facility] Creatinine 6.38 (H) 0.66 - [facility] 1.25 mg/dL [facility] GFR Estimate 9 (L) >60 [facility] mL/min/1.7 [place] m2 CAMPUS LABS GFR Estimate If 11 (L) >60 [facility] Black mL/min/1.7 [place] m2 CAMPUS LABS Calcium 9.1 8.5 - 10.4 [facility] mg/dL [facility] Specimen Anatomical Collection Method Collection Time Receive d Time (Source) Location / / Volume Laterality Blood specimen 02/03/2014 5:38 AM 014 5:40 (specimen) CDT AM CDT Omaira Chavez PA-C LAB - BLOOD ORDERABLES Performing Organization Address City/[facility]/ZIP Code Phon e Number [facility] [address] LABS (ABNORMAL) Phosphorus (02/03/2014 5:38 AM CDT) P athologist Signature Phosphorus 4.7 (H) 2.5 - 4.5 [facility] mg/dL [place] LABS Specimen Anatomical Collection Method Collection Time Receive d Time (Source) Location / / Volume Laterality Blood specimen 02/03/2014 5:38 AM 014 5:40 (specimen) CDT AM CDT Omaira Chavez PA-C LAB - BLOOD ORDERABLES Performing Organization Address City/State/ZIP Code Phon e Number [facility] [address] LABS Magnesium (02/03/2014 5:38 AM CDT) P athologist Signature Magnesium 2.0 1.6 - 2.3 [facility] mg/dL [place] LABS Specimen Anatomical Collection Method Collection Time Receive d Time (Source) Location / / Volume Laterality Blood specimen 02/03/2014 5:38 AM 014 5:40 (specimen) CDT AM CDT Omaira Chavez PA-C LAB - BLOOD ORDERABLES Performing Organization Address City/State/ZIP Code Phon e Number [facility] [address] LABS (ABNORMAL) CBC with platelets differential (02/03/2014 5:38 AM CDT) Patholo gist Method Time Signature WBC 13.2 (H) 4.0 - [facility] 11.0 [facility] 10e9/L [place] LABS RBC Count 3.20 (L) 4.4 - 5.9 [facility] 10e12/L [facility] Hemoglobin 9.9 (L) 13.3 - [facility] 17.7 g/dL [facility] Hematocrit 30.2 (L) 40.0 - [facility] 53.0 % [facility] MCV 94 78 - 100 [facility] fl [facility] MCH 30.9 26.5 - [facility] 33.0 pg [facility] MCHC 32.8 31.5 - [facility] 36.5 g/dL [facility] RDW 14.5 10.0 - [facility] 15.0 % [facility] Platelet Count 108 (L) 150 - 450 [facility] 10e9/L [facility] Diff Method Automated [facility] Method [facility] % Neutrophils 96.9 % [facility] % Lymphocytes 0.7 % [facility] % Monocytes 2.1 % [facility] % Eosinophils 0.0 % [facility] % Basophils 0.1 % [facility] % Immature 0.2 % [facility] Granulocytes [facility] Absolute 12.8 (H) 1.6 - 8.3 [facility] Neutrophil 10e9/L [facility] Absolute 0.1 (L) 0.8 - 5.3 [facility] Lymphocytes 10e9/L [facility] Absolute 0.3 0.0 - 1.3 [facility] Monocytes 10e9/L [facility] Absolute 0.0 0.0 - 0.7 [facility] Eosinophils 10e9/L [facility] Absolute 0.0 0.0 - 0.2 [facility] Basophils 10e9/L [facility] Abs Immature 0.0 0 - 0.4 [facility] Granulocytes 10e9/L [facility] Specimen Anatomical Collection Method Collection Time Receive d Time (Source) Location / / Volume Laterality Blood specimen 02/03/2014 5:38 AM 014 5:40 (specimen) CDT AM CDT Omaira Chavez PA-C LAB - BLOOD ORDERABLES Performing Organization Address City/State/ZIP Code Phon e Number [facility] [address] [place] [address] [facility] LABS (ABNORMAL) Hemoglobin A1c (02/03/2014 5:38 AM CDT) Analysis Performed At Patho logist Time Signature Hemoglobin A1C 6.2 (H) 4.3 - 6.0 [facility] LABS Specimen Anatomical Collection Method Collection Time Receive d Time (Source) Location / / Volume Laterality Blood specimen 02/03/2014 5:38 AM 014 5:40 (specimen) CDT AM CDT Caitlin Owens MD LAB - BLOOD ORDERABLES Performing Organization Address City/[facility]/ZIP Code Phon e Number [facility] [address] [place] [address] [facility] LABS (ABNORMAL) Glucose by meter (02/03/2014 5:05 [...] LARES - ROBERT POCT Performing Organization Address City/[facility]/ZIP Code Phon e Number FV POINT [...] LARES - ROBERT POCT Performing Organization Address [place]/[facility] Phon e Number FV POINT OF CARE TEST, GLUCOSE POINT OF CARE TEST, GLUCOSE Potassium (02/03/2014 1:18 AM CDT) athologist Signature Potassium 4.7 3.4 - 5.3 [facility] mmol/L CAMPUS LABS Specimen Anatomical Collection Method Collection Time Receive d Time (Source) Location / / Volume Laterality Blood specimen 02/03/2014 1:18 AM 014 1:20 (specimen) CDT AM CDT Caitlin Owens MD LAB - BLOOD ORDERABLES Performing Organization Address [place]/[facility] Phon e Number [address] LABS (ABNORMAL) Hemoglobin (02/03/2014 1:18 AM CDT) athologist Signature Hemoglobin 9.8 (L) 13.3 - 17.7 [facility] g/dL CAMPUS LABS Specimen Anatomical Collection Method Collection Time Receive d Time (Source) Location / / Volume Laterality Blood specimen 02/03/2014 1:18 AM 014 1:20 (specimen) CDT AM CDT Caitlin Owens MD LAB - BLOOD ORDERABLES Performing Organization Address [place]/[facility] Phon e Number [address] LABS (ABNORMAL) Glucose by meter (02/03/2014 1:16 AM CDT) P athologist Signature Glucose 186 (H) 60 - 99 POINT OF CARE mg/dL TEST, GLUCOSE Specimen Anatomical Collection Method Collection Time Receive d Time (Source) Location / / Volume Laterality 02/03/2014 1:16 AM 4 1:20 CDT AM CDT Migel Merchant MD LAB - BEAKER POCT Performing Organization Address [place]/[facility] Phon e Number FV POINT OF CARE [...] LAB - BEAKER POCT Performing Organization Address [place]/[facility] Phon e Number FV POINT OF CARE [...] Signature Phosphorus 4.4 2.5 - 4.5 [facility] mg/dL [place] LABS Specimen Anatomical Collection Method Collection Time Receive d Time (Source) Location / / Volume Laterality Blood specimen 02/02/2014 10:50 4 (specimen) PM CDT 11:06 PM CDT Caitlin Owens MD LAB - BLOOD ORDERABLES Performing Organization Address City/State/ZIP Code Phon e Number [facility] [address] [place] [address] [facility] LABS Magnesium (02/02/2014 10:50 PM CDT) athologist Signature Magnesium 1.8 1.6 - 2.3 [facility] mg/dL CAMPUS LABS Specimen Anatomical Collection Method Collection Time Receive d Time (Source) Location / / Volume Laterality Blood specimen 02/02/2014 10:50 4 (specimen) PM CDT 11:06 PM CDT Caitlin Owens MD LAB - BLOOD ORDERABLES Performing Organization Address City/[facility]/ZIP Code Phon e Number [facility] [address] [place], [place] [id number] [place] [address] LABS (ABNORMAL) Basic metabolic panel (02/02/2014 10:50 PM CDT) [facility] Method Time Signature Sodium 138 133 - 144 [facility] mmol/L [facility] [place] LABS Potassium 4.5 3.4 - 5.3 [facility] mmol/L [facility] LABS Chloride 104 94 - 109 [facility] mmol/L [facility] LABS Carbon Dioxide 25 20 - 32 [facility] mmol/L [facility] LABS Anion Gap 10 6 - 17 [facility] mmol/L [facility] LABS Glucose 134 (H) 60 - 99 [facility] mg/dL [facility] LABS Urea Nitrogen 44 (H) 7 - 30 [facility] mg/dL [facility] LABS Creatinine 6.14 (H) 0.66 - [facility] 1.25 mg/dL [facility] LABS GFR Estimate 9 (L) >60 [facility] mL/min/1.7 UNIVERSITY m2 CAMPUS LABS GFR Estimate If 11 (L) >60 [facility] Black mL/min/1.7 [place] m2 CAMPUS LABS Calcium 8.8 8.5 - 10.4 [facility] mg/dL [facility] LABS Specimen Anatomical Collection Method Collection Time Receive d Time (Source) Location / / Volume Laterality Blood specimen 02/02/2014 10:50 4 (specimen) PM CDT 11:06 PM CDT Caitlin Owens MD LAB - BLOOD ORDERABLES Performing Organization Address City/[facility]/ZIP Code Phon e Number [facility] [address] [place] [address] [facility] LABS (ABNORMAL) CBC with platelets differential (02/02/2014 10:50 PM CDT) [facility] Method Time Signature WBC 8.2 4.0 - [facility] 11.0 [place] 10e9/L [place] LABS RBC Count 3.34 (L) 4.4 - 5.9 [facility] 10e12/L [facility] LABS Hemoglobin 10.3 (L) 13.3 - [facility] 17.7 g/dL [facility] LABS Hematocrit 30.9 (L) 40.0 - [facility] 53.0 % [facility] LABS MCV 93 78 - 100 [facility] fl [facility] LABS MCH 30.8 26.5 - [facility] 33.0 pg [facility] LABS MCHC 33.3 31.5 - [facility] 36.5 g/dL [facility] LABS RDW 14.3 10.0 - [facility] 15.0 % [facility] LABS Platelet Count 79 (L) 150 - 450 [facility] 10e9/L [facility] LABS Diff Method Automated [facility] Method [facility] LABS % Neutrophils 96.7 % [facility] LABS % Lymphocytes 1.6 % [facility] LABS % Monocytes 1.2 % [facility] LABS % Eosinophils 0.4 % [facility] % Basophils 0.0 % [facility] LABS % Immature 0.1 % [facility] Granulocytes [facility] LABS Absolute 7.9 1.6 - 8.3 [facility] Neutrophil 10e9/L [facility] LABS Absolute 0.1 (L) 0.8 - 5.3 [facility] Lymphocytes 10e9/L [facility] LABS Absolute 0.1 0.0 - 1.3 [facility] Monocytes 10e9/L [facility] LABS Absolute 0.0 0.0 - 0.7 [facility] Eosinophils 10e9/L [facility] LABS Absolute 0.0 0.0 - 0.2 [facility] Basophils 10e9/L [facility] LABS Abs Immature 0.0 0 - 0.4 [facility] Granulocytes 10e9/L [facility] LABS Specimen Anatomical Collection Method Collection Time Receive d Time (Source) Location / / Volume Laterality Blood specimen 02/02/2014 10:50 4 (specimen) PM CDT 11:06 PM CDT Caitlin Owens MD LAB - BLOOD ORDERABLES Performing Organization Address City/State/ZIP Code Phon e Number [phone] [place] [address] LABS (ABNORMAL) VENOUS PANEL (02/02/2014 10:09 PM CDT) [facility] gist Method Time Signature Ph Venous 7.31 (L) 7.32 - [facility] 7.43 pH [facility] LABS PCO2 Venous 52 (H) 40 - 50 [facility] mm Hg [facility] LABS PO2 Venous 34 25 - 47 [facility] mm Hg [facility] LABS Bicarbonate 26 21 - 28 [facility] Venous mmol/L [facility] LABS Base Deficit 0.3 mmol/L [facility] Venous [facility] LABS Comment: Reference range: -7.7 to 1.9 FIO2 45 [facility] LABS Sodium 137 133 - 144 mmol/L [facility] LABS Potassium 4.4 3.4 - 5.3 mmol/L [facility] LABS Hemoglobin 10.0 (L) 13.3 - 17.7 g/dL [facility] LABS Glucose 116 (H) 60 - 99 mg/dL [facility] LABS Calcium Ionized Whole Blood 4.8 4.4 - 5.2 mg/dL [facility] LABS Specimen Anatomical Collection Method Collection Time Receive d Time (Source) Location / / Volume Laterality 02/02/2014 10:09 02/02/2014 PM CDT 10:14 PM CDT Migel Merchant MD LAB - BLOOD ORDERABLES Performing Organization Address City/[facility]/ZIP Code Phon e Number [phone] [place] [address] LABS (ABNORMAL) Glucose by meter (02/02/2014 9:24 PM CDT) P athologist Signature Glucose 129 (H) 60 - 99 POINT OF CARE mg/dL TEST, GLUCOSE Specimen Anatomical Collection Method Collection Time Receive d Time (Source) Location / / Volume Laterality 02/02/2014 9:24 PM 4 9:31 CDT PM CDT Migel Merchant MD LAB - BEAKER POCT Performing Organization Address City/[facility]/ZIP Code Phon e Number FV POINT [...] LAB - BEAKER POCT Performing Organization Address City/[facility]/ZIP Code Phon e Number FV POINT OF CARE TEST, GLUCOSE POINT OF CARE TEST, GLUCOSE (ABNORMAL) VENOUS PANEL (02/02/2014 6:40 PM CDT) athologist Signature Ph Venous 7.35 7.32 - [facility] 7.43 pH [facility] LABS PCO2 Venous 50 40 - 50 mm [facility] Hg [facility] LABS PO2 Venous 46 25 - 47 mm [facility] Hg [facility] LABS Bicarbonate 28 21 - 28 [facility] Venous mmol/L [facility] LABS Base Excess 1.8 mmol/L [facility] Venous [facility] LABS Comment: Reference range: -7.7 to 1.9 FIO2 100% [facility] LABS Sodium 141 133 - 144 mmol/L [facility] LABS Potassium 3.7 3.4 - 5.3 mmol/L [facility] LABS Hemoglobin 10.3 (L) 13.3 - 17.7 g/dL [facility] LABS Glucose 76 60 - 99 mg/dL [facility] LABS Calcium Ionized Whole Blood 4.8 4.4 - 5.2 mg/dL [facility] LABS Specimen Anatomical Collection Method Collection Time Receive d Time (Source) Location / / Volume Laterality 02/02/2014 6:40 PM 4 6:44 CDT PM CDT Migel Merchant MD LAB - BLOOD ORDERABLES Performing Organization Address City/State/ZIP Code Phon e Number [phone] [place] [address] LABS Glucose by meter (02/02/2014 5:11 PM [...] PM CDT Migel Merchant MD [facility] POCT Performing Organization Address City/State/ZIP Code [...] MARYELLEN Blood component (02/02/2014 2:07 PM CDT) [facility] Method Time Signature Unit Number [id number] [facility] LABS Blood Red Blood [facility] Component Cells [facility] Leukocyte [place] LABS Reduced Division 00 [facility] Number [facility] LABS Status of No longer [place] Unit available [facility] 02/06/2014 HOSPITAL LAB 0300 Specimen Anatomical Collection Method Collection Time Receive d Time (Source) Location / / Volume Laterality 02/02/2014 2:07 PM 4 2:10 CDT PM CDT Caitlin Owens MD LABORATORY Performing Organization Address City/State/ZIP Code Phon e Number [facility] [address] [place], [place] [address] [facility] LABS [facility] LAB Blood component (02/02/2014 2:07 PM CDT) [facility] Method Time Signature Unit Number [id number] [facility] LABS Blood Red Blood [facility] Component Cells [facility] Leukocyte [place] LABS Reduced Division 00 [facility] Status of No longer [place] Unit available [facility] 02/06/2014 HOSPITAL LAB 0300 Specimen Anatomical Collection Method Collection Time Receive d Time (Source) Location / / Volume Laterality 02/02/2014 2:07 PM 4 2:10 CDT PM CDT Caitlin Owens MD LABORATORY Performing Organization Address City/[facility]/ZIP Code Phon e Number [place] [address] [place], [place] [address] [facility] LAB ABO/Rh type and screen (02/02/2014 2:07 PM CDT) [facility] Method Time Signature Units Ordered 2 [facility] LABS ABO A [facility] LABS RH(D) Pos [facility] LABS Antibody Neg [facility] Screen [facility] LABS Test Valid [facility] Only At [facility] BLOOD BANK Center,Aide LAB w Hospital Specimen 02/05/2014 [facility] BLOOD BANK LAB Crossmatch Red Blood [facility] Cells [facility] LABS Specimen Anatomical Collection Method Collection Time Receive d Time (Source) Location / / Volume Laterality Blood specimen 02/02/2014 2:07 PM 014 2:10 (specimen) CDT PM CDT Caitlin Owens MD LAB - BLOOD BANK TEST ORDER Performing Organization Address City/State/ZIP Code Phon e Number [facility] [address] [place] [address] [facility] LABS [facility] BLOOD BANK LAB (ABNORMAL) Lipid Profile (02/02/2014 2:07 PM CDT) P athologist Signature Cholesterol 135 <200 mg/dL [facility] LABS Comment: LDL Cholesterol is the primary guide to therapy. The NCEP recommends further evaluation of: patients with cholesterol greater than 200 mg/dL if additional risk facto rs are present, cholesterol greater than 240 mg/dL, triglycerides greater than 1 50 mg/dL, or HDL less than 40 mg/dL. Triglycerides 124 0 - 150 mg/dL [facility] [place] LABS HDL Cholesterol 34 (L) >40 mg/dL [facility] LABS LDL Cholesterol Calculated 77 0 - 129 mg/dL [facility] LABS Comment: LDL Cholesterol is the primary guide to therapy: LDL-cholesterol goal in high risk patients is <100 mg/dL and in very high risk patients is <70 mg/dL. VLDL-Cholesterol 25 0 - 30 mg/dL [facility] LABS Cholesterol/HDL Ratio 4.0 0.0 - 5.0 [facility] LABS Specimen Anatomical Collection Method Collection Time Receive d Time (Source) Location / / Volume Laterality Blood specimen 02/02/2014 2:07 PM 2 014 2:08 (specimen) CDT PM CDT Caitlin Owens MD LAB - BLOOD ORDERABLES Performing Organization Address City/[facility]/ZIP Code Phon e Number [address] LABS (ABNORMAL) Hemoglobin A1c (02/02/2014 2:07 PM CDT) Analysis Performed At Patho logist Time Signature Hemoglobin A1C 6.2 (H) 4.3 - 6.0 [facility] LABS Specimen Anatomical Collection Method Collection Time Receive d Time (Source) Location / / Volume Laterality Blood specimen 02/02/2014 2:07 PM 2 014 2:08 (specimen) CDT PM CDT Caitlin Owens MD LAB - BLOOD ORDERABLES Performing Organization Address City/State/ZIP Code Phon e Number [address] LABS Hepatitis C antibody (02/02/2014 2:07 PM CDT) Patholo gist Method Time Signature Hepatitis C Negative NEG [facility] Antibody MICROBIOLOGY Specimen Anatomical Collection Method Collection Time Receive d Time (Source) Location / / Volume Laterality Blood specimen 02/02/2014 2:07 PM 2 014 2:08 (specimen) CDT PM CDT Caitlin Owens MD LAB - BLOOD ORDERABLES Performing Organization Address City/[facility]/ZIP Code Phon e Number [facility] [address] [place], [place] [phone] [place] [address] MICROBIOLOGY Hepatitis B core antibody IgM (02/02/2014 2:07 PM CDT) [facility] Method Time Signature Hepatitis B Negative NEG [facility] Core IgM MICROBIOLOGY Specimen Anatomical Collection Method Collection Time Receive d Time (Source) Location / / Volume Laterality Blood specimen 02/02/2014 2:07 PM 014 2:08 (specimen) CDT PM CDT Caitlin Owens MD LAB - BLOOD ORDERABLES Performing Organization Address City/[facility]/ZIP Code Phon e Number [facility] [address] MICROBIOLOGY Hepatitis B surface antigen (02/02/2014 2:07 PM CDT) [facility] Method Time Signature Hep B Surface Negative NEG [facility] Agn MICROBIOLOGY Specimen Anatomical Collection Method Collection Time Receive d Time (Source) Location / / Volume Laterality Blood specimen 02/02/2014 2:07 PM 2 014 2:08 (specimen) CDT PM CDT Caitlin Owens MD LAB - BLOOD ORDERABLES Performing Organization Address City/[facility]/ZIP Code Phon e Number [facility] [address] [place], [place] [phone] [place] [address] MICROBIOLOGY HIV Antigen Antibody Combo (02/02/2014 2:07 PM CDT) [facility] Method Time Signature HIV Antigen Nonreactive NR [facility] Antibody HIV-1 p24 Ag & HIV-1/HIV-2 Ab Not Detected [facility] LABS Specimen Anatomical Collection Method Collection Time Receive d Time (Source) Location / / Volume Laterality Blood specimen 02/02/2014 2:07 PM 014 2:08 (specimen) CDT PM CDT Caitlin Owens MD LAB - BLOOD ORDERABLES Performing Organization Address City/[facility]/ZIP Code Phon e Number [facility] [address] [place], [place] [phone] [place] [address] [facility]ITY [facility]AMP[facility] LABS EBV Capsid Antibody IgM (02/02/2014 2:07 PM CDT) [facility] Method Time Signature EBV Capsid <0.2 0.0 - 0.8 [facility] Antibody IgM No detectable antibody. [facility] LABS Specimen Anatomical Collection Method Collection Time Receive d Time (Source) Location / / Volume Laterality Blood specimen 02/02/2014 2:07 PM 014 2:08 (specimen) CDT PM CDT Caitlin Owens MD LAB - BLOOD ORDERABLES Performing Organization Address City/[facility]/ZIP Code Phon e Number [facility] [address] LABS (ABNORMAL) EBV Capsid Antibody IgG (02/02/2014 2:07 PM CDT) [facility] Method Time Signature EBV Capsid >8.0 0.0 - 0.8 [facility] Antibody IgG Positive, suggests recent or past exposure [facility] () [place] LABS Specimen Anatomical Collection Method Collection Time Receive d Time (Source) Location / / Volume Laterality Blood specimen 02/02/2014 2:07 PM 014 2:08 (specimen) CDT PM CDT Caitlin Owens MD LAB - BLOOD ORDERABLES Performing Organization Address City/[facility]/ZIP Code Phon e Number [facility] [address] LABS CMV antibody IgM (02/02/2014 2:07 PM CDT) Analysis Performed At Patho logist Time Signature CMV Antibody <0.2 0.0 - 0.8 [facility] IgM Negative [facility] LABS Specimen Anatomical Collection Method Collection Time Receive d Time (Source) Location / / Volume Laterality Blood specimen 02/02/2014 2:07 PM 014 2:08 (specimen) CDT PM CDT Caitlin Owens MD LAB - BLOOD ORDERABLES Performing Organization Address City/[facility]/ZIP Code Phon e Number [facility] [address] LABS (ABNORMAL) CMV Antibody IgG (02/02/2014 [...] Phon e Number [facility] [address] [place] [address] [place] [facility] LABS (ABNORMAL) Comprehensive metabolic panel (02/02/2014 2:07 PM CDT) [facility] gist Method Time Signature Sodium 141 133 - 144 [facility] mmol/L [facility] LABS Potassium 4.2 3.4 - 5.3 [facility] mmol/L [place] [facility] LABS Chloride 101 94 - 109 [facility] mmol/L [facility] LABS Carbon Dioxide 26 20 - 32 [facility] mmol/L [facility] LABS Anion Gap 13 6 - 17 [facility] mmol/L [facility] LABS Glucose 112 (H) 60 - 99 [facility] mg/dL [facility] LABS Urea Nitrogen 42 (H) 7 - 30 [facility] mg/dL [facility] LABS Creatinine 6.03 (H) 0.66 - [facility] 1.25 UN[facility]ERSITY mg/dL CAMPUS LABS GFR Estimate 9 (L) >60 [facility] mL/min/1. [place] [address] LABS GFR Estimate If 11 (L) >60 [facility] Black mL/min/1. [address] LABS Calcium 9.9 8.5 - [facility] 10.4 UN[facility]ERSITY mg/dL CAMPUS LABS Bilirubin Total 0.7 0.2 - 1.3 [facility] mg/dL [facility] LABS Albumin 4.2 3.3 - 4.9 [facility] g/dL [facility] LABS Protein Total 7.5 6.8 - 8.8 [facility] g/dL [facility] LABS Alkaline 88 40 - 150 [facility] Phosphatase U/L [facility] LABS ALT 33 0 - 70 [facility] U/L [facility] LABS AST 18 0 - 45 [facility] U/L [facility] LABS Specimen Anatomical Collection Method Collection Time Receive d Time (Source) Location / / Volume Laterality Blood specimen 02/02/2014 2:07 PM 014 2:08 (specimen) CDT PM CDT Caitlin Owens MD LAB - BLOOD ORDERABLES Performing Organization Address City/State/ZIP Code Phon e Number [facility] [address] [place] [address] [place] [facility] LABS (ABNORMAL) CBC with platelets differential (02/02/2014 2:07 PM CDT) [facility] gist Method Time Signature WBC 6.3 4.0 - [facility] 11.0 [place] 10e9/L [place] LABS RBC Count 3.71 (L) 4.4 - 5.9 [facility] 10e12/L [facility] LABS Hemoglobin 11.5 (L) 13.3 - [facility] 17.7 g/dL [facility] LABS Hematocrit 33.7 (L) 40.0 - [facility] 53.0 % [facility] LABS MCV 91 78 - 100 [facility] fl [facility] LABS MCH 31.0 26.5 - [facility] 33.0 pg [facility] LABS MCHC 34.1 31.5 - [facility] 36.5 g/dL [facility] LABS RDW 14.0 10.0 - [facility] 15.0 % [facility] LABS Platelet Count 110 (L) 150 - 450 [facility] 10e9/L [facility] LABS Diff Method Automated [facility] Method [facility] LABS % Neutrophils 52.4 % [facility] LABS % Lymphocytes 32.1 % [facility] LABS % Monocytes 7.9 % [facility] LABS % Eosinophils 7.1 % [facility] LABS % Basophils 0.3 % [facility] LABS % Immature 0.2 % [facility] Granulocytes [facility] LABS Absolute 3.3 1.6 - 8.3 [facility] Neutrophil 10e9/L [facility] LABS Absolute 2.0 0.8 - 5.3 [facility] Lymphocytes 10e9/L [facility] LABS Absolute 0.5 0.0 - 1.3 [facility] Monocytes 10e9/L [facility] LABS Absolute 0.5 0.0 - 0.7 [facility] Eosinophils 10e9/L [facility] LABS Absolute 0.0 0.0 - 0.2 [facility] Basophils 10e9/L [facility] LABS Abs Immature 0.0 0 - 0.4 [facility] Granulocytes 10e9/L [facility] LABS Specimen Anatomical Collection Method Collection Time Receive d Time (Source) Location / / Volume Laterality Blood specimen 02/02/2014 2:07 PM 014 2:08 (specimen) CDT PM CDT Caitlin Owens MD LAB - BLOOD ORDERABLES Performing Organization Address City/State/ZIP Code Phon e Number [facility] [address] [place] [address] [facility] LABS Creatinine urine calculation only (02/02/2014 2:00 PM CDT) P athologist Signature Creatinine 88 mg/dL [facility] Urine [place] LABS Specimen Anatomical Collection Method Collection Time Receive d Time (Source) Location / / Volume Laterality 02/02/2014 2:00 PM 4 2:12 CDT PM CDT Caitlin Owens MD LAB - URINE ORDERABLES Performing Organization Address City/State/ZIP Code Phon e Number [facility] [address] [place] [address] [facility] LABS (ABNORMAL) Urine culture (02/02/2014 2:00 PM CDT) Component Value Ref Test Analysis Performed At [facility] Range Method Time Signature Specimen Midstream Urine [facility] Description [facility] LABS Special Specimen received [facility] Requests in preservative MICROBIOLOGY Culture Micro <10,000 colonies/mL Gram pos itive cocci No further identification Susceptibility [facility] testing not routinely done CT CROBIOLOGY <10,000 colonies/mL Strain 2 Gram positive [...] MICRO GENERAL ORDERABL ES Performing Organization Address City/[facility]/ZIP Code Phon e Number [facility] [address] [place] [address] [facility] LABS [facility] MICROBIOLOGY (ABNORMAL) Protein random urine (02/02/2014 2:00 PM CDT) [facility] gist Method Time Signature Protein Random 1.89 g/L [facility] Urine [facility] LABS Protein Total 2.15 (H) 0 - 0.2 [facility] Urine g/gr g/g Cr [facility] LABS Specimen Anatomical Collection Method Collection Time Receive d Time (Source) Location / / Volume Laterality Urine specimen URINE SPECIMEN 02/02/2014 2:00 PM 02/02 2:12 (specimen) OBTAINED BY CLEAN CDT PM CDT CATCH PROCEDURE / Unknown Caitlin Owens MD LAB - URINE ORDERABLES Performing Organization Address City/[facility]/ZIP Code Phon e Number [facility] [address] LABS (ABNORMAL) Routine UA with microscopic (02/02/2014 2:00 PM CDT) Patholo gist Method Time Signature Color Urine Light Yellow [facility] LABS Appearance Urine Clear [facility] LABS Glucose Urine 70 (A) NEG mg/dL [facility] LABS Bilirubin Urine Negative NEG [facility] UN[facility]ERSITY [facility]AMP[facility] LABS Ketones Urine Negative NEG mg/dL [facility] UNIVERSITY [place] LABS Specific [place] 1.008 1.003 - [facility] Urine 1.035 UNIVERSITY [place] LABS Blood U[facility]G [facility] [place] [facility] pH Urine 8.0 (H) 5.0 - 7.0 [facility] pH [facility] LABS Protein Albumin 100 (A) NEG mg/dL [facility] Urine [place] [facility] LAB[facility] Urobilinogen Normal 0.0 - 2.0 [facility] mg/dL mg/dL [facility] LABS Nitrite Urine Negative NEG [facility] LABS Leukocyte Negative NEG [facility] Esterase Urine [facility] LABS Source Clean catch [facility] urine [facility] LABS WBC Urine 1 0 - [...] Phon e Number [facility] [address] [place] [address] [facility] LABS (ABNORMAL) Glucose by meter (02/02/2014 1:59 [...] 12-lead, tracing only (02/02/2014 1:58 PM CDT) [facility] gist Method Time Signature Interpretation ECG [...] dose, When verbally ordered by the prescriber. [place] throat with 1-4 sprays 5 minutes prior [...] 11:15 PM CDT 0.4 mg HYDROmorphone (DILAUDID) FIELD SECRETARY 1 mg/mL Shift Total 02/03/2014 6:24 AM CDT FIELD SECRETARY dose (mg): 0.1, Max FIELD SECRETARY dose (mg): 0.2, Lockout Interval (min): 10 minutes, FIELD SECRETARY Continuous Rate (mg/hr): CONTINUOUS RATE IS NOT [...] dose, When verbally ordered by the prescriber. [place] throat with 1-4 sprays 5 minutes prior [...] after. insulin aspart (NovoLOG) injection (CANCELED) 0818 (z Missed (do not use) - Provider: Ganesh Covarrubias RN - Reason: [...] after. insulin aspart (NovoLOG) injection (CANCELED) 0730 (z Missed (do not use) - Provider: Ganesh Covarrubias RN - Reason: NPO)1335 (z Missed (do not use) - Provider: Ganesh Covarrubias RN - Reason: Other)1738 (z Missed (do not use) - Provider: Lashaun Braswell RN - Reason: Other - Comment: Duplicate order) 0839 (z Missed (do not use) - Provider: Lashaun Braswell RN - Reason: Other - Comment: duplicate order)1342 (Given - Provider: Lashaun Braswell RN)1924 (Given - Provider: Annmarie Colby RN) 0902 (Given - Provider: Amanda low RN)1130 (Canceled Entry - Provider: Orders Generic Provider - Comment: Automatically canceled at discontinue of medication order) Subcutaneous, 4 TIMES DAILY BEFORE MEALS & NIGHTLY, First dose on Tue02/05/14 at 1130, DOSE: 1 units per 15 grams of carbohydrate. Only chart total amount of units given. Do not give if pre-prandial 2209 (z Missed (do not use) - Provider: Annmarie Colby RN - Reason: Other - Comment: pt. not eating at HS) 2224 (z Missed (do not use) - Provider: Annmarie Colby RN - Reason: Other) 1630 (Canceled Entry - Provider: Orders Generic [...] Lashaun Braswell, BOGDAN)1820 (Given - Provider: Lashaun Braswell RN) 0808 [...] (Given - Provider: Lashaun Braswell RN) 0810 (z Missed (do not use) - Provider: Amanda Hernandez RN - Reason: [...] 0836 (Given - Provider: Lashaun Braswell, BOGDAN)1999 (z Missed (do not use) - Provider: Annmarie Colby RN - Reason: Patient/family refused - Comment: pt. had 2 large BMs today) 0810 (z Missed (do not use) - Provider: Amanda Hernandez RN - Reason: Patient/family refused) 2 tablet, Oral, 2 TIMES DAILY, First dos e (after last modification) on 02/03/14 at 0945, Start on POD #2, Hold if PO intake < 300 mL's/Day. sertraline (ZOLOFT) tablet 100 mg (CANCELED) 1202 (Giv en - Provider: Ganesh Covarrubias RN) 0836 (Given - Provider: Lashaun Braswell, BOGDAN) 0809 (Give n - Provider: Amanda Hernandez, BOGDAN) 100 mg, Oral, DAILY, First dose on 02/03/14 at 1515 sodium chloride (PF) 0.9% PF flush 10 mL (CANCELED) 01 00 (z Missed (do not use) - Provider: Farideh Hodgson RN - Reason: IV Infusing)1207 (Given - Provider: Ganesh Covarrubias RN)1622 (Given - Provider: Lashaun Braswell, RN)1656 (Given - Provider: Odalis Seaman) 0803 (Canceled Entry - Provider: Lashaun Braswell, BOGDAN - Comment: unknown if given by previous nurse.)0838 (Given - Provider: Lashaun Braswell RN)1820 (Given - Provider: Lashaun Braswell RN) 0130 (Given - Provider: Annmarie Colby RN)0810 (z Missed (do not use) - Provider: Amanda Hernandez, BOGDAN - Reason: Other) 10 mL, Intravenous, EVERY 8 HOURS, First dose on Tue02/03/14 at 0100, And Q1H PRN, 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 2208 (Given - Provider: Annmarie Colby RN) sulfamethoxazole-trimethoprim (BACTRIM,S EPTRA) 400-80 MG per tablet. [...] tacrolimus (Prograf BRAND) capsule 1.5 mg 2028 (z Miss ed (do not use) - Provider: Lynne Gatica [facility] - Reason: Other - Comment: Dose already received, see previous order) 0838 (Given - Provider: Lashaun Braswell RN)1820 (Given - Provider: Lashaun Braswell RN) 0809 (Given - Provider: Amanda Hernandez, BOGDAN) 1.5 mg, Oral, 2 TIMES DAILY., First dose on Tue02/06/14 at 1930, Check if BLOOD LEVEL is needed BEFORE administering dose. This order is specifically written for PROGRAF (BRAND NAME) capsules. tacrolimus (PROGRAF BRAND) capsule 2 mg (CANCELED) 120 3 (Given - Provider: Ganesh Covarrubias RN)1758 (Given - Provider: Lashaun J French, RN) 2 mg, Oral, 2 TIMES DAILY., [...] mg 1 227 (Given - Provider: Lashaun Braswell RN) 0812 (Given - Provider: Amanda olw RN) Routine, 450 mg, Oral, DAILY, First [...] draw. documented in this encounter Care Teams Rod Puller And Coiler Relationship Specialty Start Date End Date Momo Forbes PCP - General Family Practice 01/02/14 [place] [id number] Ingrid Santana, RN Registered Nurse Transplant 02/10/12 documented as of this encounter
--- OUTSIDE RECORDS SUMMARY | 2022-07-29 13:05 | XMS_ITS | Encounter Summary ---
:1950 Author Organization [place] Address [facility]0 [facility] [place] [address] Care Team Providers Name Role Phone Ingrid Santana RN Unavailable Unavailable Momo Forbes Primary Care Provider Encounter Details Date Type Department Care Team Description 02/02/2014 Abstract The Transplant [facility] 2nd Floor, Clinic [address] [phone] Social History Tobacco [...] in this encounter Care Teams Talent Acquisition Consultant Relationship Specialty Start Date End Date Momo Forbes PCP - General Family Practice 01/02/14 [facility] [address] [place] [address] Ingrid Santana, BOGDAN Registered Nurse Transplant 02/10/12 documented as of this encounter
--- OUTSIDE RECORDS SUMMARY | 2022-07-29 13:05 | XMS_ITS | Encounter Summary ---
:1950 Author Organization [place] Address [address] [place] [address] Care Team Providers Name Role Phone Ingrid Santana RN Unavailable Unavailable Momo Forbes Primary Care Provider Encounter Details Date Type Department Care Team Description 02/02/2014 Results Only LABORATORY RESULTS Migel Merchant MD 420 [facility] 195 [place], [place] [phone] (Wo rk) Social History Tobacco Use Types [...] I Single Antigen (02/02/2014 6:51 PM CDT) [facility] Method Time Signature SA1 Test SA [...] Phon e Number UU HLA LABORATORY Immunology/Histocompatabil [place], [place] [address] [facility] [address] [facility] [address] Building, Room 3-580 HISTOTRAC documented in this encounter Visit Diagnoses Not on filedocumented in this encounter Care Teams Proof Load Mechanic Relationship Specialty Start Date End Date Momo Forbes PCP - General Family Practice 01/02/14 [facility] [address] [place] [address] Ingrid Santana, RN Registered Nurse Transplant 02/10/12 documented as of this encounter
--- OUTSIDE RECORDS SUMMARY | 2022-07-29 13:05 | XMS_ITS | Encounter Summary ---
:1950 Author Organization [place] Address [address] [place] [address]. [place] [address] Care Team Providers Name Role Phone Ingrid Santana RN Unavailable Unavailable Momo Forbes Primary Care Provider Reason for Visit Reason Comments Transplant Encounter Details Date Type Department Care Team Description 02/02/2014 Orders Only Transplant Surgery [place], End stage renal failure Clinic BOGDAN Mae on dialysis (H) 2nd Floor, Clinic 2A (Primary Dx) [address] [phone] Social History Tobacco Use Types Packs/Day Years [...] documented in this encounter Care Teams Metal Sander Relationship Specialty Start Date End Date Momo Forbes PCP - General Family Practice 01/02/14 [facility] 2000 [place] [address] Ingrid Santana, RN Registered Nurse Transplant 02/10/12 documented as of this encounter
--- OUTSIDE RECORDS SUMMARY | 2022-07-29 13:05 | XMS_ITS | Encounter Summary ---
:1950 Author Organization [place] Address [address] [place] [address] Care Team Providers Name Role Phone Ingrid Santana RN Unavailable Unavailable Momo Forbes Primary Care Provider Encounter Details Date Type Department Care Team Description 02/02/2014 Results Only LABORATORY RESULTS Migel Merchant MD 420 [facility] 195 [place], [place] [phone] (Wo rk) Social History Tobacco Use Types [...] II Single Antigen (02/02/2014 6:51 PM CDT) [facility] Method Time Signature SA2 Test [...] Phon e Number UU HLA LABORATORY Immunology/Histocompatabil [place], [place] [address] [facility] [address] [facility] [address] Building, Room 3-580 HISTOTRAC documented in this encounter Visit Diagnoses Not on filedocumented in this encounter Care Teams Brake Drum Lathe Operator Relationship Specialty Start Date End Date Momo Forbes PCP - General Family Practice 01/02/14 [facility] [address] [place] [address] Ingrid Santana, RN Registered Nurse Transplant 02/10/12 documented as of this encounter
--- OUTSIDE RECORDS SUMMARY | 2022-07-29 13:05 | XMS_ITS | Encounter Summary ---
:1950 Author Organization [place] Address [address] [place] [address]. [place] [address] Care Team Providers Name Role Phone Ingrid Santana RN Unavailable Unavailable Momo Forbes Primary Care Provider Reason for Visit Reason Comments Transplant Donor culture results Encounter Details Date Type Department Care Team Description 02/04/2014 Documentation Only The Transplant Gladis Yeboah, Transplant (Donor 2nd Floor, Clinic 2A RN culture results) [address] [phone] Social History Tobacco Use Types Packs/Day Years [...] and urine cultures have been uploaded into [employer]. Notification sent to Dr. Rust and Dr. Hernandes. documented in this encounter Plan of Treatment Not on filedocumented as of this encounter Visit Diagnoses Not on filedocumented in this encounter Care Teams Farmworker Animal Relationship Specialty Start Date End Date Momo Forbes PCP - General Family Practice 01/02/14 [facility] [address] [place] [address] Ingrid Santana, RN Registered Nurse Transplant 02/10/12 documented as of this encounter
--- OUTSIDE RECORDS SUMMARY | 2022-07-29 13:05 | XMS_ITS | Encounter Summary ---
:1950 Author Organization [place] Address [address] [facility] [place] [address] Care Team Providers Name Role Phone Ingrid Santana RN Unavailable Unavailable Momo Forbes Primary Care Provider Reason for Visit Auth/Cert - Closed Specialty Diagnoses / Procedures Referred By Contact Refer red To Contact Med Surg Diagnoses end stage renal disease dialysis End stage renal failure on dialysis Renal Failure Uu U7a Procedures [facility] DON[facility] 500 [place] [address] Phone: Referral ID Status Reason Start Date Expiration Date Visits Requ ested Visits Authorized [id number] Closed 02/04/2014 08/03/2014 1 1 Encounter Details Date Type Department Care Team Description 02/02/2014 Anesthesia Event [facility] Joseph Ivey MD XXX RESIGNED XXX [address] [place] [address] PeriOp Services Leigh Ann Blank MD 420 [facility] 294 [place], [place] [phone] [place] [address] Anesthesia Record Procedure Summary Procedure [...] Hand Inez Mckeon Sara E RN Saima, BED MANAGER RETIRED ETT 02/02/14; 1753; Airway 02/02/14 1753 [...] Take 1 tablet by mouth daily. B lqmhtdv-W-ribba acid (NEPHROCAPS) 1 MG capsule Take 1 [...] benefits and alternatives discussed with: patient or associate sales representative. Possibility of blood products discussed. [...] plan were discussed with patient/family or family associate sales representative. All questions were answered and there was agreement to proceed. History & Physical Review Leigh Ann Blank MD Anesthesiology [phone] 2:47 PM February 02, 2014 Diego Guthrie was seen and examined and the medical history was reviewed with him. The anesthetic plan was discussed, risks were explained and questions were answered. He agrees to proceed as discussed. I have reviewed this note and agree with the assessment and plan. Joseph Ivey M.D. Staff Anesthesiologist [phone] 02/02/2014 4:48 PM documented in this encounter [...] Intra-op documented in this encounter Care Teams Visual Merchandiser Relationship Specialty Start Date End Date Momo Forbes PCP - General [facility] Practice 01/02/[address] [address] Ingrid Santana, RN Registered Nurse Transplant 02/10/12 documented as of this encounter
--- OUTSIDE RECORDS SUMMARY | 2022-07-29 13:05 | XMS_ITS | Encounter Summary ---
:1950 Author Organization [place] Address [facility] [place] [address] Care Team Providers Name Role Phone Ingrid Santana RN Unavailable Unavailable Momo Forbes Primary Care Provider Encounter Details Date Type Department Care Team Description 02/02/2014 Results Only LABORATORY RESULTS Migel Merchant MD [address] [place] [address] 195 [place], [place] [address] (Wo rk) Social History Tobacco Use Types [...] T/B Crossmatch Allo (02/02/2014 6:51 PM CDT) [facility] Method Time Signature Crossmatch Donor:[id number], ?Crossmatch Date:02/02/2014 HISTOTRAC Result (Note) Serum Date [...] Phon e Number UU HLA LABORATORY Immunology/Histocompatabil [place], [place] [address] ity [facility] Ctr [address], Room 3-580 HISTOTRAC documented in this encounter Visit Diagnoses Not on filedocumented in this encounter Care Teams Oceanographer Physical Relationship Specialty Start Date End Date Momo Forbes PCP - General Family Practice 01/02/14 [facility] [address] [place] [address] Ingrid Santana, RN Registered Nurse Transplant 02/10/12 documented as of this encounter
--- OUTSIDE RECORDS SUMMARY | 2022-07-29 13:05 | XMS_ITS | Encounter Summary ---
:1950 Author Organization [place] Address [address] [place] [address] Care Team Providers Name Role Phone Ingrid Santana RN Unavailable Unavailable Momo Forbes Primary Care Provider Encounter Details Date Type Department Care Team Description 02/02/2014 Results Only LABORATORY RESULTS Migel Merchant MD [address] [place] [address] 195 [place], [place] [address] (Wo rk) Social History Tobacco Use Types [...] T/B Crossmatch Auto (02/02/2014 6:51 PM CDT) [facility] Method Time Signature Crossmatch Donor:ELINOR GUTHRIE [...] HLA LABORATORY Immunology/Histocompatabil [place], [place] [address] [facility] 500 [facility] [address] Building, Room 3-580 HISTOTRAC documented in this encounter Visit Diagnoses Not on filedocumented in this encounter Care Teams Enrober Relationship Specialty Start Date End Date Momo Forbes PCP - General Family Practice 01/02/14 [facility] [address] [place] [address] Ingrid Santana, RN Registered Nurse Transplant 02/10/12 documented as of this encounter
--- OUTSIDE RECORDS SUMMARY | 2022-07-29 13:06 | XMS_ITS | Encounter Summary ---
:1950 Author Organization [place] Address [address] [place] [address] Care Team Providers Name Role Phone Ingrid Santana RN Unavailable Unavailable Momo Forbes Primary Care Provider Encounter Details Date Type Department Care Team Description 01/21/2014 Results Only LABORATORY RESULTS Mingo Dangelo MD 420 [facility] SE [facility] 195 [place] [address] (Wo rk) Social History Tobacco [...] HLA Lukasz Class II Single Antigen (01/21/2014) [facility] gist Method Time [...] Phon e Number UU HLA LABORATORY Immunology/Histocompatabil [place], [place] [address] ity [facility] Ctr [address] Building, Room 3-580 HISTOTRAC documented in this encounter Visit Diagnoses Not on filedocumented in this encounter Care Teams Maintainer Operator Relationship Specialty Start Date End Date Momo Forbes PCP - General Family Practice 01/02/14 [facility] [address] [place] [address] Ingrid Santana, RN Registered Nurse Transplant 02/10/12 documented as of this encounter
--- OUTSIDE RECORDS SUMMARY | 2022-07-29 13:06 | XMS_ITS | Encounter Summary ---
:1950 Author Organization [place] Address [facility] [place] [address] Care Team Providers Name Role Phone Toña Jones MD Primary Care Provider Ingrid Santana RN Unavailable Unavailable Reason for Visit Reason Onset Date Comments Transplant 12/19/2013 Kidney waitlist appo intments Encounter Details Date Type Department Care Team Description 12/19/2013 Telephone The Transplant Edda low Abstract, Provider Transplant (Kidney 2nd Floor, Clinic 2A waitlist appointments) [address] [phone] Social History Tobacco Use Types Packs/Day Years [...]
--- OUTSIDE RECORDS SUMMARY | 2022-07-29 13:06 | XMS_ITS | Encounter Summary ---
:1950 Author Organization [place] Address [address] [place] [address] Care Team Providers Name Role Phone Ingrid Santana RN Unavailable Unavailable Momo Forbes Primary Care Provider Reason for Visit Reason Onset Date Comments Transplant 02/02/2014 Kidney Offer Encounter Details Date Type Department Care Team Description 02/02/2014 Telephone Transplant Surgery Carmelita Rosario Tran splant (Kidney Clinic RN Offer) 2nd Floor, Clinic [address]A [address] [phone] Social History Tobacco Use [...] on filedocumented in this encounter Care Teams Ophthalmology Assistant Relationship Specialty Start Date End Date Momo Forbes PCP - General Family Practice 01/02/[address] [address] Ingrid Santana, RN Registered Nurse Transplant 02/10/12 documented as of this encounter
--- OUTSIDE RECORDS SUMMARY | 2022-07-29 13:06 | XMS_ITS | Encounter Summary ---
:1950 Author Organization [place] Address [address] [place] [address] Care Team Providers Name Role Phone Ingrid Santana RN Unavailable Unavailable Momo Forbes Primary Care Provider Encounter Details Date Type Department Care Team Description 01/20/2014 Orders Only [facility], [facility] jm [place] [address] [phone] [place] [address] 367 [place] [address] (Wo rk) Social History Tobacco [...] Results Tacrolimus level (02/15/2014 8:55 AM CDT) [facility] Method Time Signature Tacrolimus Last 02/14/2014 [facility] Dose 2030 [facility] Tacrolimus 5.9 5.0 - [facility] Level 15.0 ug/L [facility] Comment: Tacrolimus Reference Range [...] e Number [facility] [address] [place], [place] [phone] [place] [address] LABS documented in this encounter Visit Diagnoses Not on filedocumented in this encounter Care Teams Strickler Attendant Relationship Specialty Start Date End Date Momo Forbes PCP - General Family Practice 01/02/14 [facility] [address] [place] [address] Ingrid Santana, RN Registered Nurse Transplant 02/10/12 documented as of this encounter
--- OUTSIDE RECORDS SUMMARY | 2022-07-29 13:06 | XMS_ITS | Encounter Summary ---
:1950 Author Organization [place] Address [facility], [facility] [place] [address] Care Team Providers Name Role Phone Toña [...] DM (madeleine betes mellitus), type 2 (H) [address] [phone] Social History Tobacco Use Types [...] uncontrolled documented in this encounter Care Teams Humanities Teacher Relationship Specialty Start Date End Date Toña Jones MD PCP - General Nephrology 11/25/11 01/01/14 Ingrid Santana, RN Registered Nurse Transplant 02/10/12 documented as of this encounter
--- OUTSIDE RECORDS SUMMARY | 2022-07-29 13:06 | XMS_ITS | Encounter Summary ---
:1950 Author Organization [facility] Address [address] [place] [address] Care Team Providers Name Role Phone Ingrid Santana RN Unavailable Unavailable Momo Forbes Primary Care Provider Reason for Visit Auth/Cert - Closed Specialty Diagnoses / Procedures Referred By Contact Refer red To Contact Med Surg Diagnoses end stage renal disease dialysis End stage renal failure on dialysis Renal Failure Uu U7a Procedures TRANSPLANT KIDNEY RECIPIENT DONOR [address] [place] [address] Phone: Referral ID Status Reason Start Date Expiration Date Visits Requ ested Visits Authorized [id number] Closed 02/04/2014 08/03/2014 1 1 Encounter Details Date Type Department Care Team Description 02/02/2014 Surgery [facility] Migel Merchant , Kidney Transplant , PeriOp Services ureteral stent [address] [place] [address] [place] [address] [place], [place] [address] (Wo rk) Surgery Details Date/Time Status Location [...] Physician Discharge Summary Patient ID: Diego Guthrie [id number] 63 year old 1950 Admit date: 02/02/2014 [...] Take 1 tablet by mouth daily. B kmvclgo-H-sxnmt acid (NEPHROCAPS) 1 MG capsule Take 1 [...] located on the second floor of the [facility] next to the Transplant Clinic. Your [...] of these appointments you will meetwith a process development manager and meet your education coordinator. Your nurse will also be in communication with your surgeon and process development manager as needed. The direct number to the [facility] is [phone]. In the [facility] [...] This will be located in [facility] transplant surgery clinic on the second floor.Your transplant surgeon is: Dr. Merchant. You have a ureteral stent in place which needs to be removed in 4-6 weeks. If a poultry picker does not contact you for this, please contact your education coordinator. If you have modesta in place, they will be removed in 3 weeks after operation. Notify your coordinator if you have pain over your kidney, fever greater than 101.5F, or decreased urine output. Notify your coordinator immediately if you are ever unable to take your immunosuppressive medications for any reason. Bottoming Machine Operator [phone] Diet recommendations post-transplant: Heart healthy dietary habits termite control servicer (low saturated/trans fat, low sodium). High protein [...] >2. He can be seen by any portable trackman in the outpatient setting for coordination. Continue metoprolol 25 po bid until he is r e-evaluated. We did attempt inpatient REFUGIO guided cardioversion, but the patient developed significant bleeding while on heparin. José Miguel Alvarez M.D. Etiologist Joseph Quintana MD - 02/08/2014 12:35 PM [...] Dr. Quintana. Sina Robison MD Nephrology Fellow [phone] Attestation: This patient has been seen and [...] Ramires RN - 02/07/2014 2:25 PM CDT Warper Fixer D: Diego Guthrie 63 year old male POD #5 s/p DDKT for ESRD 2/[address] Diaz note today. Per Dr Diaz, pt will most likely be ready for d/c to home tomorrow and will return to [facility] for 5 days at 0700. Pt [...] him. Pt does not know where the [facility] or transplant clinic is, I told him and he replied I will find it. Pt does not care which [facility] agency will follow him--There are only 2 to choose from, [phone] --I called and left a message with Estrella Fletcher and I fax'd his records tothem--pt will need start of care approx Thursday 02/15. Pt is new on warfarin and I called his PCP's office and they have INR nurses Tuesday-Tuesday their fax # is [phone] (when N visits are completed --pt will call main clinic # to schedule INR draws). 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 I verified his address and phone #(is his cell) on the facesheet. Pt has not met his OP nursing care partner: Leandro Kahn, yet--I sent Leandro an in basket message today-with plan. A: possible d/c to home Tuesday P: see above-will follow and will call [facility] to confirm they can accept him. Joseph [...] Dr. Quintana. Sina Robison MD Nephrology Fellow [phone] Attestation: This patient has been seen and [...] assistance Medical Decision Making: Medium Subsequent visit 94049 (moderate level decision making) PATO/Fellow/Resident Provider: Adeline [...] Hernandez MD - 02/06/2014 4:25 PM CDT [facility] Cardiology Progress Note I have seen [...] Dr. Quintana. Sina Robison MD Nephrology Fellow [phone] Attestation: This patient has been seen and [...] drain in place with serosanguinous drainage. : gbibs is present. The genitalia is not edematous. [...] Dr. Quintana. Sina Robison MD Nephrology Fellow [phone] Attestation: This patient has been seen and [...] REPLACEMENT ONLY ??? insulin (regular) Stopped (02/05/14 9467) Shiva Kahn RN - 02/05/2014 4:47 PM CDT MANAGER CORPORATE STRATEGY NOTE I met with the patient and his yesterday at [facility] PCU-6B (telemetry unit) to discuss transition from inpatient to outpatient care following kidney translantation. The patient is POD #3 extended criteria donor (FISHERIES DIRECTOR) kidney transplant for ESRD related to [...] the plan for daily visits to the [facility] for 5 days after discharge followed [...] meet with the patient again in the [facility] following discharge from [facility]. Michael, Joseph Hernandez MD - 02/05/2014 11:16 AM CDT [facility] Cardiology Progress Note I have seen [...] plan for REFUGIO cardioversion tomorrow, NPO at [place] (orders placed) -- continue heparin and initiate [...] 02/02/2014. Pt lives alone in [place] though reports that his girlfriend in in the process of moving in with him. Pt girlfriend, Tete, will be present when pt returns home but she works multimedia programmer. Pt was on dialysis for 2 1/2 years prior to transplant. Pt works independently but reports that he currently has no income coming in. Pt has primary insurancethrough Medicare and Secondary insurance through [employer]. Pt has no co-pays for his immunosuppressants and a high out of pocket cost for Valcyte, SW to look into grants for pt for Valcyte. I: Met with pt to introduce this jingle writer and explain sw role and services available while inpatient in the hospital. Asked if pt had any questions or concerns and completed an assessment of psychosocialneeds post transplant. Provided education about expectations and requirements post discharge like fol low up in the [facility]. Pt is unsure yet if he [...] arise prior to discharge. Roopa Castro, CECY, CUTTER GRINDER OPERATOR Indu Calixto MD - 02/05/2014 1:50 [...] PT - 02/04/2014 4:57 PM CDT 02/04/14 4813 Quick Adds Type of Visit Initial PT Evaluation Psychological Science Professor Psychological Science Professor Present no Language Belarusian Living Environment (R) Lives With alone Living Arrangements ([facility]) Home Accessibility no concerns Number of [...] up when pt is available. CECY Kearns, [facility] [phone] phone [phone] pager Joseph Quintana MD - 02/04/2014 11:51 [...] Dr. Quintana. Sina Robison MD Nephrology Fellow [phone] Attestation: This patient has been seen and [...] for this basename: PTHI, in the last 23345 hours IRON STUDIES No results found for this basename: IRON, FEB, IRONSAT, THEE, in the last 29563 hours Imaging: All imaging studies reviewed by [...] or equal to 12.0 mlU/mL. Adeline Diaz [phone] Attestation: The patient has been seen and [...] donor kidney transplant, with stent on 02/02/14. FISHERIES DIRECTOR donor. Graft function:uncertain, Cr slightly up. [...] . Medical Decision Making: Medium Subsequent visit 50732 (moderate level decision making) PATO/Fellow/Resident Provider: Caitlin [...] note and orders. Migel Merchant MD, PhD bobbin dumper Abdominal Organ Transplantation Carmelita Rosario, RN - 02/03/2014 9:38 AM CDT Patient removed from the OS waitlist after donor kidney transplant. OS ID is [id number]. Rafaela Cardona - 02/03/2014 9:17 AM CDT [...] followed general diet. Patient reports good appetite/intake CATEGORY SPECIALIST, no nutrition issues/concnerns. CURRENT NUTRITION ORDERS - [...] DDKT ASSESSED NUTRITION NEEDS: Estimated Energy Needs: 7639-4427+ kcals (25-30+ Kcal/Kg) Justification: maintenance post-transplant Estimated [...] 8 weeks). Rec follow heart-healthy diet termite control servicer. Implementation Nutrition education: Provided instruction on post-transplant diet with discussion regarding protein sources and high protein needs in acute post-tx phase. Reviewed recommendations to follow low fat/lowsodium diet termite control servicer and discussed heart healthy diet tips. Discussed [...] adjustment. Rafaela Cardona RD, LD Weekend Coverage [phone] Jose Aguirre MD - 02/03/2014 4:57 AM [...] Doing well postoperatively. Pain: Controlled by Dilaudid JOB CHECKER Diet: NPO tonight Volume Status: Borderline low UOP, continue MIVF, 0.9 % NS 500 cc bolus given for low UOP, CVP not accurate, systolic in 100-110 Recheck hemoglobin and potassium normal. Rest of the plan per primary team. Will continue to follow. Jose Aguirre MD PGY-1.................02/03/2014 Surgery Cross Cover Pager:[phone] documented in this encounter H&P Notes Caitlin [...] 1 tablet by mouth daily. ??? 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 Kidney [...] note and orders. Migel Merchant MD, PhD bobbin dumper Abdominal Organ Transplantation documented in this encounter Consult Notes Joseph Rodriguez MD - 02/04/2014 11:03 AM CDTAssociated Order(s): CARDIOLOGY IP CONSULT [facility] CARDIOLOGY CONSULT SERVICE INITIAL CONSULT [...] 1 tablet by mouth daily. ??? 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 José Miguel Alvarez MD Etiologist Pager: [phone] February 04, 2014 Kaitlynn Leon MD - 02/03/2014 9:30 AM CDT Nephrology Initial Consult February 03, 2014 Diego Guthrie Date of : 1950 Date of Admission:02/02/2014 Primary care provider: Momo Forbes Requesting physician: Migel Merchant MD ASSESSMENT AND RECOMMENDATIONS: 1. DDKT - FISHERIES DIRECTOR -59 yo women; slow graft function-no immediate need for dialysis , but may require tomorrow if UO does not brass pickler. We will monitor Induction with Thymo/Cellcept and [...] h/o type 2 Dm, who received DDKT (FISHERIES DIRECTOR) on 02/02/2014 donor kidney had severe [...] ??? Cataract iol, rt/lt both eyes MEDICATIONS: CATEGORY SPECIALIST Meds Prior to Admission medications Medication Sig Last Dose Taking? Auth Provider Calcium Carbonate-Vitamin D (CALCIUM + D PO) Take by mouth daily. Reported, Patient lisinopril (PRINIVIL,ZESTRIL) 40 MG tablet Take 40 mg by mouth 2 times daily. Reported, Patient METOPROLOL SUCCINATE PO Take by mouth daily. Reported, Patient aspirin 81 MG tablet Take 1 tablet by mouth daily. Reported, Patient B sivdnnh-O-fhwto acid (NEPHROCAPS) 1 MG capsule Take 1 [...] Intravenous Central line Once ??? HYDROmorphone Intravenous JOB CHECKER Infusion Meds ??? 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 Alvin Diego Cardiovascular Disease Fellow [phone] Patient seen and examined by me with [...] Cullen MD, PhD Jarad Cullen MD, PhD [phone] documented in this encounter Nursing Notes Gretta Mary RN - 02/02/2014 11:[address] Owens with Transplant Surgery notified of stat lab results. Magnesium replaced. Dr. Balnk with Anesthesia reviewed chest x-ray. CVC not deep enough to give accurate CVP readings, however all lumens aspirate blood well. Patient is ok to transfer to unit 6B per [facility]. documented in this encounter Miscellaneous Notes Plan of Care - Amanda Hernandez RN - 02/08/2014 3:44 PM CDT Problem: IP GENERAL POC-ADULT,OB,BEHAVIORAL FVCPM Goal: Individualization/Patient-Specific Goal (Adult,OB,Behavioral The patient and/or their footwear sales representative will achieve their patient-specific goals [...] Card updated. Report called to Saima in [facility]. Left facility accompanied by s.o at 1600. Plan of Care - Amanda Hernandez RN - 02/08/2014 2:13 PM CDT Problem: IP GENERAL POC-ADULT,OB,BEHAVIORAL FVCPM Goal: Individualization/Patient-Specific Goal (Adult,OB,Behavioral The patient and/or their footwear sales representative will achieve their patient-specific goals [...] Individualization/Patient-Specific Goal (Adult,OB,Behavioral The patient and/or their footwear sales representative will achieve their patient-specific goals [...] Individualization/Patient-Specific Goal (Adult,OB,Behavioral The patient and/or their footwear sales representative will achieve their patient-specific goals [...] weeks. Inez Luevano MS, RD, LD Pager [phone] Pharmacy-Immunosuppression Monitoring - Em Vasquez [facility] - 02/07/2014 9:06 AM CDT Tacrolimus Monitoring [...] will continue to follow. Em Vasquez, Pharm.D., [facility] Pager [phone] Plan of Care - Annmarie Colby RN - 02/07/2014 5:11 AM CDT Problem: IP GENERAL POC-ADULT,OB,BEHAVIORAL FVCPM Goal: Individualization/Patient-Specific Goal (Adult,OB,Behavioral The patient and/or their footwear sales representative will achieve their patient-specific goals [...] Individualization/Patient-Specific Goal (Adult,OB,Behavioral The patient and/or their footwear sales representative will achieve their patient-specific goals [...] increased fluid intake, urine color is becoming theatre instructor( tea color/bloody- >dark sy/tea color). Incisional pain [...] Dr. Hernandes notified. Plan of Care - Yeseina Rodriguez, PT - 02/06/2014 12:42 PM CDT Problem: General Rehab Plan of Care Goal: Physical Therapy Goals The patient and/or their footwear sales representative will achieve their patient-specific goals [...] Physical Therapy Goals The patient and/or their footwear sales representative will achieve their patient-specific goals [...] Individualization/Patient-Specific Goal (Adult,OB,Behavioral The patient and/or their footwear sales representative will achieve their patient-specific goals [...] Individualization/Patient-Specific Goal (Adult,OB,Behavioral The patient and/or their footwear sales representative will achieve their patient-specific goals [...] Physical Therapy Goals The patient and/or their footwear sales representative will achieve their patient-specific goals [...] at this time. Pharmacy - Cayetano Olivera, [facility] - 02/05/2014 12:26 PM CDT Visited 02/05/2014 in hospital room prior to discharge to review medications, review discharge process and review specialty pharmacy program. Med Review: Reviewed patient's medications and medical conditions. Patient would like to use [facility] to manage all medications. Medcard: [...] Specialty Pharmacy review: Discussed the benefits of [facility] and Diego has enrolled. Also gave him supplies (blood pressure cuff, thermometer, and pill box) Other concerns: No other concerns at this time. No further questions for this pharmacist. Inez Cox, Student Pharmacist Fuel Truck Driver [facility] [address] [place] [address] Cayetano Olivera, Pharmacist [facility] [phone] Pharmacy-Anticoagulation Service - Teresa Wright [facility] - 02/05/2014 11:29 AM CDT Clinical Pharmacy- [...] Individualization/Patient-Specific Goal (Adult,OB,Behavioral The patient and/or their footwear sales representative will achieve their patient-specific goals [...] melonie hard time making full sentences. When jingle writer came on shift at 8pm patient [...] Individualization/Patient-Specific Goal (Adult,OB,Behavioral The patient and/or their footwear sales representative will achieve their patient-specific goals [...] Physical Therapy Goals The patient and/or their footwear sales representative will achieve their patient-specific goals [...] by friend. Pt transferred to chair, VSS, patient safety sitter on, oriented to room. Pharmacy-Admission Medication History - Teresa Wright [facility] - 02/04/2014 11:54 AM CDT Admission medication history interview status for the 02/02/2014 admission is complete. See [facility] admission navigator for allergy information, prior to admission medications and immunization status. Medication history interview sources (including written lists, pill bottles, clinic record):Patient Medication history source reliability:Good Primary pharmacy:[facility] phone number: [phone] Changes made to CATEGORY SPECIALIST medication list (reason) Added: Vitamin D 1,000 [...] at Unknown time Yes Reported, Patient B eilynni-Q-mggcg acid (NEPHROCAPS) 1 MG capsule Take 1 [...] Individualization/Patient-Specific Goal (Adult,OB,Behavioral The patient and/or their footwear sales representative will achieve their patient-specific goals [...] 45 minutes and remains in A-fib via shipping and receiving. Repeat EKG around 1000 showed continued Afibl. [...] Physical Therapy Goals The patient and/or their footwear sales representative will achieve their patient-specific goals related to the plan of care. The patient-specific goals include: PT 7A: HOLD for AM per RN - pt with a-fib this morning. Plan of Care - Alisson Diane RN - 02/04/2014 6:45 AM CDT Problem: IP GENERAL POC-ADULT,OB,BEHAVIORAL FVCPM Goal: Individualization/Patient-Specific Goal (Adult,OB,Behavioral The patient and/or their footwear sales representative will achieve their patient-specific goals [...] Individualization/Patient-Specific Goal (Adult,OB,Behavioral The patient and/or their footwear sales representative will achieve their patient-specific goals [...] yellow. Pharmacy-Transplant Note - Davina Schuster [facility] - 02/03/2014 4:28 PM CDT Adult Kidney [...] Individualization/Patient-Specific Goal (Adult,OB,Behavioral The patient and/or their footwear sales representative will achieve their patient-specific goals related to the plan of care. The patient-specific goals include: 1. Pt will remain hemodynamically stable 2. Pt will have adequate urine output 3. Pt will be free of falls. RD Patient will verbalize understanding of 3 important aspects of post-transplant diet guidelines. PO intake >50% meals TID once diet adv. Report taken from [facility] on 6B; patient transferred to from 6B via wheelchair around 1500. Patientsettled into room, oriented to floor/room and call light. VS taken. Orders released. Continue ordersas written and notify MD with any concerns. Plan of Care - Sofie Christianson RN - 02/03/2014 2:59 PM CDT Problem: IP GENERAL POC-ADULT,OB,BEHAVIORAL FVCPM Goal: Plan of Care Review (Adult,OB,Behavioral) The patient and/or their footwear sales representative will communicate an understanding of [...] algorithm 2, 1 unit now. Pt still hkcheuuxd6L NC to maintain sats above 90 % [...] Individualization/Patient-Specific Goal (Adult,OB,Behavioral The patient and/or their footwear sales representative will achieve their patient-specific goals [...] Intermittent sharp R lower abd pain. Dilaudid JOB CHECKER encouraged, increased to 0.2//.2. R lower abd [...] 0200 made 20cc/hr, at 0300 made 30cc/hr. Gresham/red tinged urine. MIVF @ 125/hr. VSS. HR 70s, BPs 100s-120s/60s. No new orders at this time. Will continue to monitor. Plan of Care - Tasia Andrade RN - 02/03/2014 12:00 AM CDT Pt arrived to 6B from PACU, s/p DDKT. A&O x3-4. VSS. Gresham/red urine output. Small amt drainage on abd [...] 2 Diabetes. The patient received [facility] offer for a Donor FISHERIES DIRECTOR (expanded criteria donor) kidney transplant. After [...] The UNOS number of the donor is [id number]. The crossmatch was done prospectively; and the [...] reconstruction. FACULTY SURGEON: Migel Merchant M.D., Ph.D. FELLOW/MANAGER PROFESSIONAL DEVELOPMENT SURGEON: Caitlin Owens MD fellow ANESTHESIA: None VERIFICATION: Prior to incision, I verified the donor ABO and recipient ABO. After the donor organ arrived to the operating room and prior to anastamosis, I visually verified that the donor identification, blood type, and other vital data were compatible with the recipient. FINDINGS: Donor type: FISHERIES DIRECTOR (expanded criteria donor) Organ: kidney Graft [...] Individualization/Patient-Specific Goal (Adult,OB,Behavioral The patient and/or their footwear sales representative will achieve their patient-specific goals [...] Individualization/Patient-Specific Goal (Adult,OB,Behavioral The patient and/or their footwear sales representative will achieve their patient-specific goals [...] Not Provided [facility] Last Dose [facility] Tacrolimus 10.0 5.0 - [facility] Level 15.0 ug/L [facility] Comment: Tacrolimus Reference Range Kidney Transplant [...] Address City/[facility]/ZIP Code Phon e Number [facility] [address] LABS (ABNORMAL) INR (02/08/2014 6:42 AM CDT) P athologist Signature INR 1.28 (H) 0.86 - 1.14 [facility] Specimen Anatomical Collection Method Collection Time Receive d Time (Source) Location / / Volume Laterality Blood specimen 02/08/2014 6:42 AM 014 6:43 (specimen) CDT AM CDT Omaira Chavez PA-C LAB - BLOOD ORDERABLES Performing Organization Address City/State/ZIP Code Phon e Number [facility] [address] LABS (ABNORMAL) Basic metabolic panel (02/08/2014 6:42 AM CDT) Patholo gist Method Time Signature Sodium 144 133 - 144 [facility] mmol/L [facility] Potassium 3.9 3.4 - 5.3 [facility] mmol/L [facility] Chloride 110 (H) 94 - 109 [facility] mmol/L [facility] Carbon Dioxide 25 20 - 32 [facility] mmol/L [facility] Anion Gap 8 6 - 17 [facility] mmol/L [facility] Glucose 144 (H) 60 - 99 [facility] mg/dL [facility] Urea Nitrogen 66 (H) 7 - 30 [facility] mg/dL [facility] Creatinine 2.38 (H) 0.66 - [facility] 1.25 mg/dL [facility] GFR Estimate 28 (L) >60 [facility] mL/min/1.7 [place] m2 CAMPUS LABS GFR Estimate If 34 (L) >60 [facility] Black mL/min/1.7 [place] [id number] CAMPUS LABS Calcium 9.4 8.5 - 10.4 [facility] mg/dL [facility] Specimen Anatomical Collection Method Collection Time Receive d Time (Source) Location / / Volume Laterality Blood specimen 02/08/2014 6:42 AM 014 6:43 (specimen) CDT AM CDT Omaira Chavez PA-C LAB - BLOOD ORDERABLES Performing Organization Address City/[facility]/ZIP Code Phon e Number [address] LABS Phosphorus (02/08/2014 6:42 AM CDT) P athologist Signature Phosphorus 2.5 2.5 - 4.5 [facility] mg/dL [place] [facility] Specimen Anatomical Collection Method Collection Time Receive d Time (Source) Location / / Volume Laterality Blood specimen 02/08/2014 6:42 AM 014 6:43 (specimen) CDT AM CDT Omaira Chavez PA-C LAB - BLOOD ORDERABLES Performing Organization Address City/[facility]/ZIP Code Phon e Number 90 [address] LABS Magnesium (02/08/2014 6:42 AM CDT) athologist Signature Magnesium 2.2 1.6 - 2.3 [facility] mg/dL [place] [facility] Specimen Anatomical Collection Method Collection Time Receive d Time (Source) Location / / Volume Laterality Blood specimen 02/08/2014 6:42 AM 014 6:43 (specimen) CDT AM CDT Omaira Chavez PA-C LAB - BLOOD ORDERABLES Performing Organization Address City/[facility]/ZIP Code Phon e Number [address] LABS (ABNORMAL) CBC with platelets differential (02/08/2014 6:42 AM CDT) Patholo gist Method Time Signature WBC 4.8 4.0 - [facility] 11.0 [place] 10e9/L [place] [facility] RBC Count 2.56 (L) 4.4 - 5.9 [facility] 10e12/L [facility] LABS Hemoglobin 7.8 (L) 13.3 - [facility] 17.7 g/dL [facility] LABS Hematocrit 23.5 (L) 40.0 - [facility] 53.0 % [facility]S MCV 92 78 - 100 [facility] fl [facility] MCH 30.5 26.5 - [facility] 33.0 pg [facility] [place] [facility] MCHC 33.2 31.5 - [facility] 36.5 g/dL [facility] RDW 14.5 10.0 - [facility] 15.0 % [facility] Platelet Count 70 (L) 150 - 450 [facility] 10e9/L [facility] Diff Method Automated [facility] Method [facility] % Neutrophils 86.3 % [facility] LABS % Lymphocytes 3.1 % [facility] LABS % Monocytes 9.4 % [facility] LABS % Eosinophils 1.0 % [facility] % Basophils 0.0 % [facility] % Immature 0.2 % [facility] Granulocytes [facility] Absolute 4.1 1.6 - 8.3 [facility] Neutrophil 10e9/L [facility] Absolute 0.2 (L) 0.8 - 5.3 [facility] Lymphocytes 10e9/L [facility] Absolute 0.5 0.0 - 1.3 [facility] Monocytes 10e9/L [facility] Absolute 0.1 0.0 - 0.7 [facility] Eosinophils 10e9/L [facility] Absolute 0.0 0.0 - 0.2 [facility] Basophils 10e9/L [facility] Abs Immature 0.0 0 - 0.4 [facility] Granulocytes 10e9/L [facility] LAB[facility] Specimen Anatomical Collection Method Collection Time Receive d Time (Source) Location / / Volume Laterality Blood specimen 02/08/2014 6:42 AM 014 6:43 (specimen) CDT AM CDT Omaira Chavez PA-C LAB - BLOOD ORDERABLES Performing Organization Address City/State/ZIP Code Phon e Number [facility] [address] [place], [place] [id number] [place] [address] LABS (ABNORMAL) Glucose by meter (02/07/2014 10:18 PM CDT) P athologist Signature Glucose 233 (H) 60 - 99 POINT OF CARE mg/dL TEST, GLUCOSE Specimen Anatomical Collection Method Collection Time Receive d Time (Source) Location / / Volume Laterality 02/07/2014 10:18 02/07/2014 PM CDT 10:20 PM CDT Migel Merchant MD LAB - BEAKER POCT Performing Organization Address [facility] Phon e Number F[facility] POINT OF CARE [...] LAB - BEAKER POCT Performing Organization Address [facility] Phon e Number [facility] POINT OF CARE [...] LAB - BEAJ POCT Performing Organization Address [facility] Phon e Number [facility] POINT OF CARE [...] LAB - BEAJ POCT Performing Organization Address [facility] Phon e Number F[facility] POINT OF CARE [...] 7:50 CDT AM CDT Migel Merchant MD [facility] POCT Performing Organization Address City/State/ZIP [...] 4:48 AM 4 4:50 CDT AM CDT iMgel Merchant MD LAB - BEAKER POCT Performing Organization Address City/State/ZIP Code Phon e Number [facility] POINT OF CARE TEST, GLUCOSE POINT OF CARE TEST, GLUCOSE (ABNORMAL) INR (02/07/2014 4:23 AM CDT) athologist Signature INR 1.25 (H) 0.86 - 1.14 [facility] LABS Specimen Anatomical Collection Method Collection Time Receive d Time (Source) Location / / Volume Laterality Blood specimen 02/07/2014 4:23 AM 014 4:24 (specimen) CDT AM CDT Omaira Chavez PA-C LAB - BLOOD ORDERABLES Performing Organization Address City/State/ZIP Code Phon e Number [phone] [place] [address] LABS (ABNORMAL) Basic metabolic panel (02/07/2014 4:23 AM CDT) [facility] gist Method Time Signature Sodium 143 133 - 144 [facility] mmol/L [facility] LABS Potassium 4.1 3.4 - 5.3 [facility] mmol/L [facility] Chloride 109 94 - 109 [facility] mmol/L [facility]S Carbon Dioxide 24 20 - 32 [facility] mmol/L [facility]S Anion Gap 10 6 - 17 [facility] mmol/L [facility] Glucose 185 (H) 60 - 99 [facility] mg/dL [facility] Urea Nitrogen 77 (H) 7 - 30 [facility] mg/dL [facility]S Creatinine 3.02 (H) 0.66 - [facility] 1.25 mg/dL [facility] LABS GFR Estimate 21 (L) >60 [facility] mL/min/1.7 [place] m2 CAMPUS LABS GFR Estimate If 26 (L) >60 [facility] Black mL/min/1.7 [place] [id number] CAMPUS LABS Calcium 9.3 8.5 - 10.4 [facility] mg/dL [facility] LABS Specimen Anatomical Collection Method Collection Time Receive d Time (Source) Location / / Volume Laterality Blood specimen 02/07/2014 4:23 AM 014 4:24 (specimen) CDT AM CDT Omaira Chavez PA-C LAB - BLOOD ORDERABLES Performing Organization Address City/[facility]/ZIP Code Phon e Number [address] LABS Phosphorus (02/07/2014 4:23 AM CDT) P athologist Signature Phosphorus 3.5 2.5 - 4.5 [facility] mg/dL [place] [facility] Specimen Anatomical Collection Method Collection Time Receive d Time (Source) Location / / Volume Laterality Blood specimen 02/07/2014 4:23 AM 014 4:24 (specimen) CDT AM CDT Omaira Chavez PA-C LAB - BLOOD ORDERABLES Performing Organization Address City/State/ZIP Code Phon e Number [address] LABS Magnesium (02/07/2014 4:23 AM CDT) P athologist Signature Magnesium 2.1 1.6 - 2.3 [facility] mg/dL [place] [facility] Specimen Anatomical Collection Method Collection Time Receive d Time (Source) Location / / Volume Laterality Blood specimen 02/07/2014 4:23 AM 014 4:24 (specimen) CDT AM CDT Omaira Chavez PA-C LAB - BLOOD ORDERABLES Performing Organization Address City/State/ZIP Code Phon e Number [address] LABS (ABNORMAL) CBC with platelets differential (02/07/2014 4:23 AM CDT) Patholo gist Method Time Signature WBC 2.7 (L) 4.0 - [facility] 11.0 [place] 10e9/L [place] [facility] RBC Count 2.80 (L) 4.4 - 5.9 [facility] 10e12/L [facility]S Hemoglobin 8.5 (L) 13.3 - [facility] 17.7 g/dL [facility] LABS Hematocrit 25.8 (L) 40.0 - [facility] 53.0 % [facility]S MCV 92 78 - 100 [facility] fl [facility] MCH 30.4 26.5 - [facility] 33.0 pg [facility] MCHC 32.9 31.5 - [facility] 36.5 g/dL [facility]S RDW 14.5 10.0 - [facility] 15.0 % [facility] Platelet Count 77 (L) 150 - 450 [facility] 10e9/L [facility] Diff Method Automated [facility] Method [facility] % Neutrophils 87.5 % [facility] % Lymphocytes 3.8 % [facility] % Monocytes 8.7 % [facility] % Eosinophils 0.0 % [facility] % Basophils 0.0 % [facility] % Immature 0.0 % [facility] Granulocytes [facility] Absolute 2.3 1.6 - 8.3 [facility] Neutrophil 10e9/L [facility] Absolute 0.1 (L) 0.8 - 5.3 [facility] Lymphocytes 10e9/L [facility] Absolute 0.2 0.0 - 1.3 [facility] Monocytes 10e9/L [facility] Absolute 0.0 0.0 - 0.7 [facility] Eosinophils 10e9/L [facility] Absolute 0.0 0.0 - 0.2 [facility] Basophils 10e9/L [facility] Abs Immature 0.0 0 - 0.4 [facility] Granulocytes 10e9/L [facility] Specimen Anatomical Collection Method Collection Time Receive d Time (Source) Location / / Volume Laterality Blood specimen 02/07/2014 4:23 AM 014 4:24 (specimen) CDT AM CDT Omaira Chavez PA-C LAB - BLOOD ORDERABLES Performing Organization Address City/State/ZIP Code Phon e Number [phone] [place] [address] LABS (ABNORMAL) Hemoglobin A1c (02/07/2014 4:23 AM CDT) Analysis Performed At Patho logist Time Signature Hemoglobin A1C 6.1 (H) 4.3 - 6.0 [facility] % [facility] LABS Specimen Anatomical Collection Method Collection Time Receive d Time (Source) Location / / Volume Laterality Blood specimen 02/07/2014 4:23 AM 014 4:24 (specimen) CDT AM CDT Omaira Chavez PA-C LAB - BLOOD ORDERABLES Performing Organization Address City/State/ZIP Code Phon e Number [address] [address] [facility] LABS (ABNORMAL) Glucose by meter (02/06/2014 [...] Signature Hemoglobin 8.8 (L) 13.3 - 17.7 [facility] g/dL [place] [facility] Specimen Anatomical Collection Method Collection Time Receive d Time (Source) Location / / Volume Laterality Blood specimen 02/06/2014 4:59 PM 014 5:12 (specimen) CDT PM CDT Omaira Chavez PA-C LAB - BLOOD ORDERABLES Performing Organization Address City/[facility]/ZIP Code Phon e Number [facility] [address] LABS (ABNORMAL) Glucose by meter (02/06/2014 [...] PTT 154 (HH) 22 - 37 sec [facility] LABS Comment: Critical Value called to and read back Whitney HODGSON 6B RN AT 0642. PW Specimen Anatomical Collection Method Collection Time Receive d Time (Source) Location / / Volume Laterality 02/06/2014 5:57 AM 4 6:03 CDT AM CDT Adeline Diaz MD LAB - BLOOD ORDERABLES Performing Organization Address City/[facility]/ZIP Code Phon e Number [facility] [address] [place], [place] [id number] [place] [address] LABS Heparin Xa (10a) Level (02/06/2014 5:57 AM CDT) athologist Signature Heparin 10A 0.92 IU/mL [facility] LABS Comment: Therapeutic Range: ?? UFH: ?? [...] - BLOOD ORDERABLES Performing Organization Address City/[facility] Code Phon e Number [facility] [address] LABS (ABNORMAL) INR (02/06/2014 5:57 AM CDT) P athologist Signature INR 1.32 (H) 0.86 - 1.14 [facility] LABS Specimen Anatomical Collection Method Collection Time Receive d Time (Source) Location / / Volume Laterality Blood specimen 02/06/2014 5:57 AM 014 6:03 (specimen) CDT AM CDT Omaira Chavez PA-C LAB - BLOOD ORDERABLES Performing Organization Address City/State/ZIP Code Phon e Number [facility] [address] LABS (ABNORMAL) Basic metabolic panel (02/06/2014 5:57 AM CDT) Patholo gist Method Time Signature Sodium 142 133 - 144 [facility] mmol/L [facility] Potassium 4.7 3.4 - 5.3 [facility] mmol/L [facility] Chloride 106 94 - 109 [facility] mmol/L [facility] Carbon Dioxide 28 20 - 32 [facility] mmol/L [facility] Anion Gap 8 6 - 17 [facility] mmol/L [facility] Glucose 196 (H) 60 - 99 [facility] mg/dL [facility] Urea Nitrogen 71 (H) 7 - 30 [facility] mg/dL [facility] Creatinine 3.96 (H) 0.66 - [facility] 1.25 mg/dL [facility] [place] [facility] GFR Estimate 15 (L) >60 [facility] mL/min/1.7 [place] m2 CAMPUS LABS GFR Estimate If 19 (L) >60 [facility] Black mL/min/1.7 [place] m2 [facility]AMPUS LABS Calcium 9.4 8.5 - 10.4 [facility] mg/dL [facility] LABS Specimen Anatomical Collection Method Collection Time Receive d Time (Source) Location / / Volume Laterality Blood specimen 02/06/2014 5:57 AM 014 6:03 (specimen) CDT AM CDT Omaira Chavez PA-C LAB - BLOOD ORDERABLES Performing Organization Address City/State/ZIP Code Phon e Number [facility] [address] LABS Phosphorus (02/06/2014 5:57 AM CDT) P athologist Signature Phosphorus 4.5 2.5 - 4.5 [facility] mg/dL [place] [facility] Specimen Anatomical Collection Method Collection Time Receive d Time (Source) Location / / Volume Laterality Blood specimen 02/06/2014 5:57 AM 014 6:03 (specimen) CDT AM CDT Omaira Chavez PA-C LAB - BLOOD ORDERABLES Performing Organization Address City/State/ZIP Code Phon e Number [facility] [address] LABS Magnesium (02/06/2014 5:57 AM CDT) P athologist Signature Magnesium 1.9 1.6 - 2.3 [facility] mg/dL [place] [facility] Specimen Anatomical Collection Method Collection Time Receive d Time (Source) Location / / Volume Laterality Blood specimen 02/06/2014 5:57 AM 014 6:03 (specimen) CDT AM CDT Omaira Chavez PA-C LAB - BLOOD ORDERABLES Performing Organization Address City/State/ZIP Code Phon e Number [facility] [address] [place], [place] [phone] [place] [address] LABS (ABNORMAL) CBC with platelets differential (02/06/2014 5:57 AM CDT) Patholo gist Method Time Signature WBC 5.1 4.0 - [facility] 11.0 [facility] 10e9/L [place] [facility] RBC Count 3.13 (L) 4.4 - 5.9 [facility] 10e12/L [facility] Hemoglobin 9.6 (L) 13.3 - [facility] 17.7 g/dL [facility] Hematocrit 29.0 (L) 40.0 - [facility] 53.0 % [facility] MCV 93 78 - 100 [facility] fl [facility] MCH 30.7 26.5 - [facility] 33.0 pg [facility] MCHC 33.1 31.5 - [facility] 36.5 g/dL [facility] RDW 14.5 10.0 - [facility] 15.0 % [facility] Platelet Count 85 (L) 150 - 450 [facility] 10e9/L [facility] Diff Method Automated [facility] Method [facility] % Neutrophils 86.0 % [facility] LABS % Lymphocytes 5.1 % [facility] LABS % Monocytes 8.7 % [facility] LABS % Eosinophils 0.0 % [facility] % Basophils 0.0 % [facility] LABS % Immature 0.2 % [facility] Granulocytes [facility] Absolute 4.4 1.6 - 8.3 [facility] Neutrophil 10e9/L [facility] Absolute 0.3 (L) 0.8 - 5.3 [facility] Lymphocytes 10e9/L [facility] Absolute 0.4 0.0 - 1.3 [facility] Monocytes 10e9/L [facility] Absolute 0.0 0.0 - 0.7 [facility] Eosinophils 10e9/L [facility] Absolute 0.0 0.0 - 0.2 [facility] Basophils 10e9/L [facility] Abs Immature 0.0 0 - 0.4 [facility] Granulocytes 10e9/L [facility] Specimen Anatomical Collection Method Collection Time Receive d Time (Source) Location / / Volume Laterality Blood specimen 02/06/2014 5:57 AM 014 6:03 (specimen) CDT AM CDT Omaira Chavez PA-C LAB - BLOOD ORDERABLES Performing Organization Address City/State/ZIP Code Phon e Number [facility] [address] [place] [address] [facility] LABS (ABNORMAL) Lipid panel reflex to direct LDL (02/06/2014 5:57 AM CDT) P athologist Signature Cholesterol 126 <200 mg/dL [facility] LABS Comment: LDL Cholesterol is the primary guide to therapy. The NCEP recommends further evaluation of: patients with cholesterol greater than 200 mg/dL if additional risk facto rs are present, cholesterol greater than 240 mg/dL, triglycerides greater than 1 50 mg/dL, or HDL less than 40 mg/dL. Triglycerides 100 0 - 150 mg/dL [facility] ITY [place] LABS HDL Cholesterol 35 (L) >40 mg/dL [facility] LABS LDL Cholesterol Calculated 71 0 - 129 mg/dL [facility] LABS Comment: LDL Cholesterol is the primary guide to therapy: LDL-cholesterol goal in high risk patients is <100 mg/dL and in very high risk patients is <70 mg/dL. VLDL-Cholesterol 20 0 - 30 mg/dL [facility] Cholesterol/HDL Ratio 3.6 0.0 - 5.0 [facility] Specimen Anatomical Collection Method Collection Time Receive d Time (Source) Location / / Volume Laterality Blood specimen 02/06/2014 5:57 AM 014 6:03 (specimen) CDT AM CDT Omaira Chavez PA-C LAB - BLOOD ORDERABLES Performing Organization Address City/State/ZIP Code Phon e Number [facility] [address] LABS Tacrolimus level (02/06/2014 5:57 AM CDT) Patholo gist Method Time Signature Tacrolimus S Negative [facility] Last Dose [facility] Tacrolimus 12.7 5.0 - [facility] Level 15.0 ug/L [facility] Comment: Tacrolimus Reference Range Kidney Transplant [...] Phon e Number [facility] [address] [place] [address] [facility] LABS (ABNORMAL) Glucose by meter (02/06/2014 [...] (L) 13.3 - [facility] 17.7 g/dL [place] [facility] Specimen Anatomical Collection Method Collection Time Receive d Time (Source) Location / / Volume Laterality Blood specimen 02/06/2014 1:02 AM 014 1:11 (specimen) CDT AM CDT Deysi Alicea MD LAB - BLOOD ORDERABLES Performing Organization Address City/State/ZIP Code Phon e Number [facility] [address] [place], [place] [phone] [place] [address] LABS (ABNORMAL) Glucose by meter (02/05/2014 10:23 PM CDT) P athologist Signature Glucose 254 (H) 60 - 99 POINT OF CARE mg/dL TEST, GLUCOSE Specimen Anatomical Collection Method Collection Time Receive d Time (Source) Location / / Volume Laterality 02/05/2014 10:23 02/05/2014 PM CDT 10:25 PM CDT Migel Merchant MD LAB - BEAKER POCT Performing Organization Address City/[facility] Code Phon e Number [facility] POINT OF CARE TEST, GLUCOSE POINT OF CARE TEST, GLUCOSE Heparin 10a Level (02/05/2014 7:32 PM CDT) P athologist Signature Heparin 10A 0.64 IU/mL [facility] LABS Comment: Therapeutic Range: ?? UFH: ?? [...] Address City/State/ZIP Code Phon e Number [address] [address] [facility] LABS (ABNORMAL) Glucose by meter (02/05/2014 [...] Signature INR 1.24 (H) 0.86 - 1.14 [facility] LABS Specimen Anatomical Collection Method Collection Time Receive d Time (Source) Location / / Volume Laterality Blood specimen 02/05/2014 12:04 4 (specimen) PM CDT 12:10 PM CDT Teresa Wright [facility] LAB - BLOOD ORDERABLES Performing Organization Address City/[facility]/ZIP Code Phon e Number [address] LABS (ABNORMAL) CBC with platelets (02/05/2014 12:04 PM CDT) Patholo gist Method Time Signature WBC 7.4 4.0 - 11.0 [facility] 10e9/L [facility] RBC Count 3.31 (L) 4.4 - 5.9 [facility] 10e12/L [facility] Hemoglobin 10.3 (L) 13.3 - [facility] 17.7 g/dL [facility]S Hematocrit 31.0 (L) 40.0 - [facility] 53.0 % [facility]S MCV 94 78 - 100 [facility] fl [facility] MCH 31.1 26.5 - [facility] 33.0 pg [facility] MCHC 33.2 31.5 - [facility] 36.5 g/dL [facility] RDW 14.7 10.0 - [facility] 15.0 % [facility] Platelet Count 91 (L) 150 - 450 [facility] 10e9/L [facility] Specimen Anatomical Collection Method Collection Time Receive d Time (Source) Location / / Volume Laterality Blood specimen 02/05/2014 12:04 4 (specimen) PM CDT 12:10 PM CDT Omaira Chavez PA-C LAB - BLOOD ORDERABLES Performing Organization Address City/[facility]/ZIP Code Phon e Number [facility] [place] [address] [address] [facility] LABS (ABNORMAL) Glucose by meter (02/05/2014 [...] 133 - 144 [facility] mmol/L [facility] Potassium 4.3 3.4 - 5.3 [facility] mmol/L [facility] Chloride 107 94 - 109 [facility] mmol/L [facility] Carbon Dioxide 25 20 - 32 [facility] mmol/L [facility] Anion Gap 10 6 - 17 [facility] mmol/L [facility] Glucose 123 (H) 60 - 99 [facility] mg/dL [facility] Urea Nitrogen 66 (H) 7 - 30 [facility] mg/dL [facility] Creatinine 4.77 (H) 0.66 - [facility] 1.25 mg/dL [facility] GFR Estimate 12 (L) >60 [facility] mL/min/1.7 [place] m2 [facility] LABS GFR Estimate If 15 (L) >60 [facility] Black mL/min/1.7 [place] m2 [facility]AMP[facility] LABS Calcium 9.4 8.5 - 10.4 [facility] mg/dL [facility] Specimen Anatomical Collection Method Collection Time Receive d Time (Source) Location / / Volume Laterality Blood specimen 02/05/2014 7:02 AM 014 7:05 (specimen) CDT AM CDT Omaira Chavez PA-C LAB - BLOOD ORDERABLES Performing Organization Address City/[facility]/ZIP Code Phon e Number [address] LABS (ABNORMAL) Phosphorus (02/05/2014 7:02 AM [...] Address City/[facility]/ZIP Code Phon e Number [address] [facility] Magnesium (02/05/2014 7:02 AM CDT) P athologist Signature Magnesium 2.0 1.6 - 2.3 [facility] mg/dL [place] [facility] Specimen Anatomical Collection Method Collection Time Receive d Time (Source) Location / / Volume Laterality Blood specimen 02/05/2014 7:02 AM 014 7:05 (specimen) CDT AM CDT Omaira Chavez PA-C LAB - BLOOD ORDERABLES Performing Organization Address City/State/ZIP Code Phon e Number [facility] [address] [place] [address] [facility] LABS (ABNORMAL) CBC with platelets differential (02/05/2014 7:02 AM CDT) Patholo gist Method Time Signature WBC 8.9 4.0 - [facility] 11.0 [facility] 10e9/L [place] [facility] RBC Count 3.20 (L) 4.4 - 5.9 [facility] 10e12/L [facility] Hemoglobin 9.7 (L) 13.3 - [facility] 17.7 g/dL [facility] Hematocrit 30.0 (L) 40.0 - [facility] 53.0 % [facility] MCV 94 78 - 100 [facility] fl [facility] MCH 30.3 26.5 - [facility] 33.0 pg [facility] MCHC 32.3 31.5 - [facility] 36.5 g/dL [facility] RDW 14.6 10.0 - [facility] 15.0 % [facility] Platelet Count 96 (L) 150 - 450 [facility] 10e9/L [facility] Diff Method Automated [facility] Method [facility] % Neutrophils 90.2 % [facility] LABS % Lymphocytes 4.4 % [facility] LABS % Monocytes 5.2 % [facility] LABS % Eosinophils 0.0 % [facility] LABS % Basophils 0.0 % [facility] LABS % Immature 0.2 % [facility] Granulocytes [facility] Absolute 8.1 1.6 - 8.3 [facility] Neutrophil 10e9/L [facility] Absolute 0.4 (L) 0.8 - 5.3 [facility] Lymphocytes 10e9/L [facility] Absolute 0.5 0.0 - 1.3 [facility] Monocytes 10e9/L [facility] Absolute 0.0 0.0 - 0.7 [facility] Eosinophils 10e9/L [facility] Absolute 0.0 0.0 - 0.2 [facility] Basophils 10e9/L [facility] Abs Immature 0.0 0 - 0.4 [facility] Granulocytes 10e9/L [facility] Specimen Anatomical Collection Method Collection Time Receive d Time (Source) Location / / Volume Laterality Blood specimen 02/05/2014 7:02 AM 014 7:05 (specimen) CDT AM CDT Omaira Chavez PA-C LAB - BLOOD ORDERABLES Performing Organization Address City/State/ZIP Code Phon e Number [facility] [address] LABS (ABNORMAL) Parathormone intact (02/05/2014 7:02 AM CDT) Patholo gist Method Time Signature Parathyroid 362 (H) 12 - 72 [facility] Hormone Intact pg/mL [facility] Specimen Anatomical Collection Method Collection Time Receive d Time (Source) Location / / Volume Laterality Blood specimen 02/05/2014 7:02 AM 014 7:05 (specimen) CDT AM CDT Sina Robison MD LAB - BLOOD ORDERABLES Performing Organization Address City/State/ZIP Code Phon e Number [address] LABS (ABNORMAL) Ferritin (02/05/2014 7:02 AM CDT) P athologist Signature Ferritin 932 (H) 20 - 300 [facility] ng/mL [place] [facility] Specimen Anatomical Collection Method Collection Time Receive d Time (Source) Location / / Volume Laterality Blood specimen 02/05/2014 7:02 AM 014 7:05 (specimen) CDT AM CDT Sina Robison MD LAB - BLOOD ORDERABLES Performing Organization Address City/[facility]/ZIP Code Phon e Number [address] LABS (ABNORMAL) Iron and iron binding capacity (02/05/2014 7:02 AM CDT) Analysis Performed At Patho logist Time Signature Iron 119 35 - 180 [facility] ug/dL [facility] Iron Binding 207 (L) 240 - 430 [facility] Cap ug/dL [facility] Iron Saturation 58 (H) 15 - 46 % [facility] Index [facility] Specimen Anatomical Collection Method Collection Time Receive d Time (Source) Location / / Volume Laterality Blood specimen 02/05/2014 7:02 AM 014 7:05 (specimen) CDT AM CDT Sina Robison MD LAB - BLOOD ORDERABLES Performing Organization Address City/State/ZIP Code Phon e Number [facility] [address] [place] [address] [facility] LABS (ABNORMAL) Glucose by meter (02/05/2014 [...] CDT Migel JONES POCT Performing Organization Address [facility] Phon e Number [facility] POINT OF CARE [...] LARES - ROBERT POCT Performing Organization Address [facility] Phon e Number [facility] POINT OF CARE TEST, GLUCOSE POINT OF CARE TEST, GLUCOSE EKG 12-lead, complete (02/04/2014 11:09 PM CDT) [facility] [facility] gist Method Time Signature Interpretation ECG Click View RADIOLOGY Image link RESULTS to view waveform and result Specimen (Source) Anatomical Collection Method Collection Time Re ceived Time Location / / Volume Laterality 02/04/2014 11:09 PM CDT Chemo Carr MD ECG ORDERABLES Performing Organization Address [facility] Phon e Number RADIOLOGY RESULTS (ABNORMAL) Glucose by meter (02/04/2014 10:56 PM CDT) P athologist Signature Glucose 161 (H) 60 - 99 POINT OF CARE mg/dL TEST, GLUCOSE Specimen Anatomical Collection Method Collection Time Receive d Time (Source) Location / / Volume Laterality 02/04/2014 10:56 02/04/2014 PM CDT 11:00 PM CDT Migel JONES POCT Performing Organization Address [facility] Phon e Number FV POINT OF CARE [...] athologist Signature Troponin I 0.016 0.000 - [facility] 0.034 ug/L CAMPUS LABS Specimen Anatomical Collection Method Collection Time Receive d Time (Source) Location / / Volume Laterality Blood specimen 02/04/2014 7:10 PM 014 7:23 (specimen) CDT PM CDT Adeline Diaz MD LAB - BLOOD ORDERABLES Performing Organization Address City/State/ZIP Code Phon e Number [address] [address] [facility] LABS (ABNORMAL) Glucose by meter (02/04/2014 7:01 PM CDT) P athologist Signature Glucose 157 (H) 60 - 99 POINT OF CARE mg/dL TEST, GLUCOSE Specimen Anatomical Collection Method Collection Time Receive d Time (Source) Location / / Volume Laterality 02/04/2014 7:01 PM 4 7:05 CDT PM CDT Migel Merchant MD LAB - BEAKER POCT Performing Organization Address [facility] Phon e Number FV POINT OF CARE [...] LAB - BEAKER POCT Performing Organization Address [facility] Phon e Number FV POINT OF CARE [...] LAB - BEAKER POCT Performing Organization Address [facility] Phon e Number FV POINT OF CARE [...] LAB - BEAJ POCT Performing Organization Address [facility] Phon e Number FV POINT OF CARE [...] LAB - BEAKER POCT Performing Organization Address [facility] Phon e Number FV POINT OF CARE [...] LAB - BEAJ POCT Performing Organization Address [facility] Phon e Number FV POINT OF CARE TEST, GLUCOSE POINT OF CARE TEST, GLUCOSE Troponin I (02/04/2014 12:42 PM CDT) athologist Signature Troponin I 0.025 0.000 - [facility] 0.034 ug/L [place] LABS Specimen Anatomical Collection Method Collection Time Receive d Time (Source) Location / / Volume Laterality Blood specimen 02/04/2014 12:42 4 (specimen) PM CDT 12:45 PM CDT Adeline Diaz MD LAB - BLOOD ORDERABLES Performing Organization Address City/State/ZIP Code Phon e Number [facility] [address] [place] [address] [facility] LABS (ABNORMAL) Glucose by meter (02/04/2014 [...] EKG 12-lead, complete (02/04/2014 7:03 AM CDT) [facility] Method Time Signature Interpretation ECG [...] Signature Troponin I ES <0.012 0.000 - [facility] 0.034 ug/L CAMPUS LABS Specimen Anatomical Collection Method Collection Time Receive d Time (Source) Location / / Volume Laterality 02/04/2014 5:49 AM 4 5:51 CDT AM CDT Caitlin Owens MD LAB - BLOOD ORDERABLES Performing Organization Address City/State/ZIP Code Phon e Number [phone] [place] [address] LABS (ABNORMAL) Basic metabolic panel (02/04/2014 5:49 AM CDT) [facility] Method Time Signature Sodium 142 133 - 144 [facility] mmol/L [facility] LABS Potassium 4.9 3.4 - 5.3 [facility] mmol/L [facility] LABS Chloride 107 94 - 109 [facility] mmol/L [facility] LABS Carbon Dioxide 23 20 - 32 [facility] mmol/L [facility] LABS Anion Gap 12 6 - 17 [facility] mmol/L [facility] LABS Glucose 151 (H) 60 - 99 [facility] mg/dL [facility] LABS Urea Nitrogen 57 (H) 7 - 30 [facility] mg/dL [facility] LABS Creatinine 5.94 (H) 0.66 - [facility] 1.25 mg/dL [facility] LABS GFR Estimate 10 (L) >60 [facility] mL/min/1.7 [place] m2 CAMPUS LABS GFR Estimate If 12 (L) >60 [facility] Black mL/min/1.7 [place] m2 CAMPUS LABS Calcium 9.4 8.5 - 10.4 [facility] mg/dL [facility] LABS Specimen Anatomical Collection Method Collection Time Receive d Time (Source) Location / / Volume Laterality Blood specimen 02/04/2014 5:49 AM 014 5:51 (specimen) CDT AM CDT Omaira Chavez PA-C LAB - BLOOD ORDERABLES Performing Organization Address City/[facility]/ZIP Code Phon e Number [address] LABS (ABNORMAL) Phosphorus (02/04/2014 5:49 AM CDT) P athologist Signature Phosphorus 6.3 (H) 2.5 - 4.5 [facility] mg/dL [place] LAB[facility] Specimen Anatomical Collection Method Collection Time Receive d Time (Source) Location / / Volume Laterality Blood specimen 02/04/2014 5:49 AM 014 5:51 (specimen) CDT AM CDT Omaira Chavez PA-C LAB - BLOOD ORDERABLES Performing Organization Address City/State/ZIP Code Phon e Number [facility] [address] LABS Magnesium (02/04/2014 5:49 AM CDT) P athologist Signature Magnesium 2.1 1.6 - 2.3 [facility] mg/dL [place] LABS Specimen Anatomical Collection Method Collection Time Receive d Time (Source) Location / / Volume Laterality Blood specimen 02/04/2014 5:49 AM 014 5:51 (specimen) CDT AM CDT Omaira Chavez PA-C LAB - BLOOD ORDERABLES Performing Organization Address City/State/ZIP Code Phon e Number [facility] [address] [place] [address] [facility] LABS (ABNORMAL) CBC with platelets differential (02/04/2014 5:49 AM CDT) [facility] gist Method Time Signature WBC 13.8 (H) 4.0 - [facility] 11.0 UN[facility]ERSITY 10e9/L CAMPUS LABS RBC Count 3.10 (L) 4.4 - 5.9 [facility] 10e12/L [facility] LABS Hemoglobin 9.5 (L) 13.3 - [facility] 17.7 g/dL [facility] LABS Hematocrit 28.7 (L) 40.0 - [facility] 53.0 % [facility] LABS MCV 93 78 - 100 [facility] fl [facility] LABS MCH 30.6 26.5 - [facility] 33.0 pg [facility] LABS MCHC 33.1 31.5 - [facility] 36.5 g/dL [facility] LABS RDW 14.6 10.0 - [facility] 15.0 % [facility] LABS Platelet Count 91 (L) 150 - 450 [facility] 10e9/L [facility] LABS Diff Method Automated [facility] Method [facility] LABS % Neutrophils 95.8 % [facility] LABS % Lymphocytes 1.2 % [facility] LABS % Monocytes 2.8 % [facility] LABS % Eosinophils 0.0 % [facility] LABS % Basophils 0.0 % [facility] LABS % Immature 0.2 % [facility] Granulocytes [facility] LABS Absolute 13.2 (H) 1.6 - 8.3 [facility] Neutrophil 10e9/L [facility] LABS Absolute 0.2 (L) 0.8 - 5.3 [facility] Lymphocytes 10e9/L [facility] LABS Absolute 0.4 0.0 - 1.3 [facility] Monocytes 10e9/L [facility] LABS Absolute 0.0 0.0 - 0.7 [facility] Eosinophils 10e9/L [facility] LABS Absolute 0.0 0.0 - 0.2 [facility] Basophils 10e9/L [facility] LABS Abs Immature 0.0 0 - 0.4 [facility] Granulocytes 10e9/L [facility] LABS Specimen Anatomical Collection Method Collection Time Receive d Time (Source) Location / / Volume Laterality Blood specimen 02/04/2014 5:49 AM 014 5:51 (specimen) CDT AM CDT Omaira Chavez PA-C LAB - BLOOD ORDERABLES Performing Organization Address City/State/ZIP Code Phon e Number [address] [address] [facility] LABS (ABNORMAL) Glucose by meter (02/04/2014 [...] athologist Signature Potassium 4.8 3.4 - 5.3 [facility] mmol/L CAMPUS LABS Specimen Anatomical Collection Method Collection Time Receive d Time (Source) Location / / Volume Laterality Blood specimen 02/03/2014 10:16 4 (specimen) PM CDT 10:19 PM CDT Caitlin Owens MD LAB - BLOOD ORDERABLES Performing Organization Address City/State/ZIP Code Phon e Number [facility] [address] [place], [place] [id number] [place] [address] LABS (ABNORMAL) Hemoglobin (02/03/2014 10:16 PM CDT) P athologist Signature Hemoglobin 9.4 (L) 13.3 - 17.7 [facility] g/dL [place] LABS Specimen Anatomical Collection Method Collection Time Receive d Time (Source) Location / / Volume Laterality Blood specimen 02/03/2014 10:16 4 (specimen) PM CDT 10:19 PM CDT Caitlin Owens MD LAB - BLOOD ORDERABLES Performing Organization Address City/[facility]/ZIP Code Phon e Number [address] [address] [facility] LABS (ABNORMAL) Glucose by meter (02/03/2014 [...] athologist Signature Potassium 4.7 3.4 - 5.3 [facility] mmol/L CAMPUS LABS Specimen Anatomical Collection Method Collection Time Receive d Time (Source) Location / / Volume Laterality Blood specimen 02/03/2014 6:52 PM 014 6:53 (specimen) CDT PM CDT Caitlin Owens MD LAB - BLOOD ORDERABLES Performing Organization Address City/[facility]/ZIP Code Phon e Number [facility] [address] LABS (ABNORMAL) Hemoglobin (02/03/2014 6:52 PM CDT) athologist Signature Hemoglobin 9.6 (L) 13.3 - 17.7 [facility] g/dL CAMPUS LABS Specimen Anatomical Collection Method Collection Time Receive d Time (Source) Location / / Volume Laterality Blood specimen 02/03/2014 6:52 PM 014 6:53 (specimen) CDT PM CDT Caitlin Owens MD LAB - BLOOD ORDERABLES Performing Organization Address City/[facility]/ZIP Code Phon e Number [facility] [address] LABS (ABNORMAL) Glucose by meter (02/03/2014 6:00 PM CDT) athologist Signature Glucose 140 (H) 60 - 99 POINT OF CARE mg/dL TEST, GLUCOSE Specimen Anatomical Collection Method Collection Time Receive d Time (Source) Location / / Volume Laterality 02/03/2014 6:00 PM 4 6:05 CDT PM CDT Migel Merchant MD LAB - BEAJ POCT Performing Organization Address [facility]/ZIP Code Phon e Number FV POINT [...] LAB - ROBERT POCT Performing Organization Address [facility] Phon e Number FV POINT OF CARE [...] LAB - BEAJ POCT Performing Organization Address [facility] Phon e Number FV POINT OF CARE [...] LAB - BEAJ POCT Performing Organization Address [facility] Phon e Number FV POINT OF CARE TEST, GLUCOSE POINT OF CARE TEST, GLUCOSE Potassium (02/03/2014 1:41 PM CDT) P athologist Signature Potassium 4.7 3.4 - 5.3 [facility] mmol/L CAMPUS LABS Specimen Anatomical Collection Method Collection Time Receive d Time (Source) Location / / Volume Laterality Blood specimen 02/03/2014 1:41 PM 014 1:43 (specimen) CDT PM CDT Caitlin Owens MD LAB - BLOOD ORDERABLES Performing Organization Address City/[facility]/ZIP Code Phon e Number [phone] [place] [address] LABS (ABNORMAL) Hemoglobin (02/03/2014 1:41 PM CDT) athologist Signature Hemoglobin 9.8 (L) 13.3 - 17.7 [facility] g/dL CAMPUS LABS Specimen Anatomical Collection Method Collection Time Receive d Time (Source) Location / / Volume Laterality Blood specimen 02/03/2014 1:41 PM 014 1:43 (specimen) CDT PM CDT Caitlin Owens MD LAB - BLOOD ORDERABLES Performing Organization Address [facility] Code Phon e Number [phone] [place] [address] LABS (ABNORMAL) Glucose by meter (02/03/2014 1:10 [...] athologist Signature Potassium 4.8 3.4 - 5.3 [facility] mmol/L CAMPUS LABS Specimen Anatomical Collection Method Collection Time Receive d Time (Source) Location / / Volume Laterality Blood specimen 02/03/2014 10:11 4 (specimen) AM CDT 10:23 AM CDT Caitlin Owens MD LAB - BLOOD ORDERABLES Performing Organization Address City/State/ZIP Code Phon e Number [facility] [address] LABS (ABNORMAL) Hemoglobin (02/03/2014 10:11 AM CDT) P athologist Signature Hemoglobin 9.7 (L) 13.3 - 17.7 [facility] g/dL CAMPUS LABS Specimen Anatomical Collection Method Collection Time Receive d Time (Source) Location / / Volume Laterality Blood specimen 02/03/2014 10:11 4 (specimen) AM CDT 10:23 AM CDT Caitlin Owens MD LAB - BLOOD ORDERABLES Performing Organization Address City/State/ZIP Code Phon e Number [facility] [address] LABS (ABNORMAL) Glucose by meter (02/03/2014 [...] Basic metabolic panel (02/03/2014 5:38 AM CDT) [facility] gist Method Time Signature Sodium 141 133 [...] Address City/State/ZIP Code Phon e Number [address] [address] [facility] LABS (ABNORMAL) [...] Phon e Number [facility] [address] LABS Magnesium (02/03/2014 5:38 AM CDT) P athologist Signature Magnesium 2.0 1.6 - 2.3 [facility] mg/dL [place] LABS Specimen Anatomical Collection Method Collection Time Receive d Time (Source) Location / / Volume Laterality Blood specimen 02/03/2014 5:38 AM 014 5:40 (specimen) CDT AM CDT Omaira Chavez PA-C LAB - BLOOD ORDERABLES Performing Organization Address City/[facility]/ZIP Code Phon e Number [facility] [address] LABS (ABNORMAL) CBC with platelets differential (02/03/2014 5:38 AM CDT) Patholo gist Method Time Signature WBC 13.2 (H) 4.0 - [facility] 11.0 [facility] 10e9/L [place] [facility] RBC Count 3.20 (L) 4.4 - 5.9 [facility] 10e12/L [facility] LABS Hemoglobin 9.9 (L) 13.3 - [facility] 17.7 g/dL [facility] LABS Hematocrit 30.2 (L) 40.0 - [facility] 53.0 % [facility] LABS MCV 94 78 - 100 [facility] fl [facility] LABS MCH 30.9 26.5 - [facility] 33.0 pg [facility] LABS MCHC 32.8 31.5 - [facility] 36.5 g/dL [facility] LABS RDW 14.5 10.0 - [facility] 15.0 % [facility] LABS Platelet Count 108 (L) 150 - 450 [facility] 10e9/L [facility] LABS Diff Method Automated [facility] Method [facility] LABS % Neutrophils 96.9 % [facility] LABS % Lymphocytes 0.7 % [facility] LABS % Monocytes 2.1 % [facility] LABS % Eosinophils 0.0 % [facility] UNIVERSITY [...] 0.0 0.0 - 0.2 [facility] Basophils 10e9/L [place] [facility] LABS Abs Immature 0.0 0 - 0.4 [facility] Granulocytes 10e9/L [facility] LABS Specimen Anatomical Collection Method Collection Time Receive d Time (Source) Location / / Volume Laterality Blood specimen 02/03/2014 5:38 AM 014 5:40 (specimen) CDT AM CDT Omaira Chavez PA-C LAB - BLOOD ORDERABLES Performing Organization Address City/State/ZIP Code Phon e Number [address] LABS (ABNORMAL) Hemoglobin A1c (02/03/2014 5:38 AM CDT) Analysis Performed At Patho logist Time Signature Hemoglobin A1C 6.2 (H) 4.3 - 6.0 [facility] % [facility] LABS Specimen Anatomical Collection Method Collection Time Receive d Time (Source) Location / / Volume Laterality Blood specimen 02/03/2014 5:38 AM 014 5:40 (specimen) CDT AM CDT Caitlin Owens MD LAB - BLOOD ORDERABLES Performing Organization Address City/State/ZIP Code Phon e Number [address] LABS (ABNORMAL) Glucose by meter (02/03/2014 [...] athologist Signature Potassium 4.7 3.4 - 5.3 [facility] mmol/L [place] LABS Specimen Anatomical Collection Method Collection Time Receive d Time (Source) Location / / Volume Laterality Blood specimen 02/03/2014 1:18 AM 014 1:20 (specimen) CDT AM CDT Caitlin Owens MD LAB - BLOOD ORDERABLES Performing Organization Address City/[facility]/ZIP Code Phon e Number [address] LABS (ABNORMAL) Hemoglobin (02/03/2014 1:18 AM CDT) P athologist Signature Hemoglobin 9.8 (L) 13.3 - 17.7 [facility] g/dL [place] LABS Specimen Anatomical Collection Method Collection Time Receive d Time (Source) Location / / Volume Laterality Blood specimen 02/03/2014 1:18 AM 014 1:20 (specimen) CDT AM CDT Caitlin Owens MD LAB - BLOOD ORDERABLES Performing Organization Address City/[facility]/ZIP Code Phon e Number [address] LABS (ABNORMAL) Glucose by meter (02/03/2014 [...] athologist Signature Phosphorus 4.4 2.5 - 4.5 [facility] mg/dL CAMPUS LABS Specimen Anatomical Collection Method Collection Time Receive d Time (Source) Location / / Volume Laterality Blood specimen 02/02/2014 10:50 201 4 (specimen) PM CDT 11:06 PM CDT Caitlin Owens MD LAB - BLOOD ORDERABLES Performing Organization Address City/[facility]/ZIP Code Phon e Number [facility] [address] LABS Magnesium (02/02/2014 10:50 PM CDT) athologist Signature Magnesium 1.8 1.6 - 2.3 [facility] mg/dL [place] [facility] Specimen Anatomical Collection Method Collection Time Receive d Time (Source) Location / / Volume Laterality Blood specimen 02/02/2014 10:50 201 4 (specimen) PM CDT 11:06 PM CDT Caitlin Owens MD LAB - BLOOD ORDERABLES Performing Organization Address City/[facility]/ZIP Code Phon e Number [facility] [address] LABS (ABNORMAL) Basic metabolic panel (02/02/2014 10:50 PM CDT) [facility] gist Method Time Signature Sodium 138 133 - 144 [facility] mmol/L [facility] LABS Potassium 4.5 3.4 - 5.3 [facility] mmol/L [facility] LABS Chloride 104 94 - 109 [facility] mmol/L [facility] LABS Carbon Dioxide 25 20 - 32 [facility] mmol/L [facility] LABS Anion Gap 10 6 - 17 [facility] mmol/L [facility] LABS Glucose 134 (H) 60 - 99 [facility] mg/dL [facility] LABS Urea Nitrogen 44 (H) 7 - 30 [facility] mg/dL [facility] LABS Creatinine 6.14 (H) 0.66 - [facility] 1.25 mg/dL [facility] LABS GFR Estimate 9 (L) >60 [facility] mL/min/1.7 [place] [id number] CAMPUS LABS GFR Estimate If 11 (L) >60 [facility] Black mL/min/1.7 [place] [address] CAMPUS LABS Calcium 8.8 8.5 - 10.4 [facility] mg/dL [facility] LABS Specimen Anatomical Collection Method Collection Time Receive d Time (Source) Location / / Volume Laterality Blood specimen 02/02/2014 10:50 4 (specimen) PM CDT 11:06 PM CDT Caitlin Owens MD LAB - BLOOD ORDERABLES Performing Organization Address City/State/ZIP Code Phon e Number [facility] [address] [place] [address] [place] [facility] ([facility]NORMAL[facility] CBC with platelets differential (02/02/2014 10:50 PM CDT) [facility] gist Method Time Signature WBC 8.2 4.0 - [facility] 11.0 [facility] 10e9/L [place] [facility] RBC Count 3.34 (L) 4.4 - 5.9 [facility] 10e12/L [facility] LABS Hemoglobin 10.3 (L) 13.3 - [facility] 17.7 g/dL [facility] LABS Hematocrit 30.9 (L) 40.0 - [facility] 53.0 % [facility] LABS MCV 93 78 - 100 [facility] fl [facility] LABS MCH 30.8 26.5 - [facility] 33.0 pg [facility] LABS MCHC 33.3 31.5 - [facility] 36.5 g/dL [facility] LABS RDW 14.3 10.0 - [facility] 15.0 % [facility] LABS Platelet Count 79 (L) 150 - 450 [facility] 10e9/L [facility] LABS Diff Method Automated [facility] Method [facility] LABS % Neutrophils 96.7 % [facility] LABS % Lymphocytes 1.6 % [facility] % Monocytes 1.2 % [facility] % Eosinophils 0.4 % [facility] % Basophils 0.0 % [facility] LABS % Immature 0.1 % [facility] Granulocytes [facility]S Absolute 7.9 1.6 - 8.3 [facility] Neutrophil 10e9/L [facility] LABS Absolute 0.1 (L) 0.8 - 5.3 [facility] Lymphocytes 10e9/L [facility] LABS Absolute 0.1 0.0 - 1.3 [facility] Monocytes 10e9/L [facility]S Absolute 0.0 0.0 - 0.7 [facility] Eosinophils 10e9/L [facility] LABS Absolute 0.0 0.0 - 0.2 [facility] Basophils 10e9/L [facility] LABS Abs Immature 0.0 0 - 0.4 [facility] Granulocytes 10e9/L [facility] LABS Specimen Anatomical Collection Method Collection Time Receive d Time (Source) Location / / Volume Laterality Blood specimen 02/02/2014 10:50 4 (specimen) PM CDT 11:06 PM CDT Caitlin Owens MD LAB - BLOOD ORDERABLES Performing Organization Address City/State/ZIP Code Phon e Number [facility] [address] LABS (ABNORMAL) VENOUS PANEL (02/02/2014 10:09 PM CDT) [facility] Method Time Signature Ph Venous 7.31 (L) 7.32 - [facility] 7.43 pH [facility] LABS PCO2 Venous 52 (H) 40 - 50 [facility] mm Hg [facility] PO2 Venous 34 25 - 47 [facility] mm Hg [facility] LABS Bicarbonate 26 21 - 28 [facility] Venous mmol/L [facility] LABS Base Deficit 0.3 mmol/L [facility] Venous [facility] LABS Comment: Reference range: -7.7 to 1.9 FIO2 45 [facility] LABS Sodium 137 133 - 144 mmol/L [facility] LABS Potassium 4.4 3.4 - 5.3 mmol/L [facility] LABS Hemoglobin 10.0 (L) 13.3 - 17.7 g/dL [facility] LABS Glucose 116 (H) 60 - 99 mg/dL [facility] LABS Calcium Ionized Whole Blood 4.8 4.4 - 5.2 mg/dL [facility] LABS Specimen Anatomical Collection Method Collection Time Receive d Time (Source) Location / / Volume Laterality 02/02/2014 10:09 02/02/2014 PM CDT 10:14 PM CDT Migel Merchant MD LAB - BLOOD ORDERABLES Performing Organization Address City/[facility]/ZIP Code Phon e Number [facility] [address] LABS (ABNORMAL) Glucose by meter (02/02/2014 9:24 PM CDT) P athologist Signature Glucose 129 (H) 60 - 99 POINT OF CARE mg/dL TEST, GLUCOSE Specimen Anatomical Collection Method Collection Time Receive d Time (Source) Location / / Volume Laterality 02/02/2014 9:24 PM 4 9:31 CDT PM CDT Migel Merchant MD LAB - ROBERT POCT Performing Organization Address City/[facility] Phon e Number FV POINT OF CARE [...] - BEAJ POCT Performing Organization Address City/[facility] Phon e Number FV POINT OF CARE TEST, GLUCOSE POINT OF CARE TEST, GLUCOSE (ABNORMAL) VENOUS PANEL (02/02/2014 6:40 PM CDT) P athologist Signature Ph Venous 7.35 7.32 - [facility] 7.43 pH [facility] LABS PCO2 Venous 50 40 - 50 mm [facility] Hg [facility] PO2 Venous 46 25 - 47 mm [facility] Hg [facility] LABS Bicarbonate 28 21 - 28 [facility] Venous mmol/L [facility] LABS Base Excess 1.8 mmol/L [facility] Venous [facility] LABS Comment: Reference range: -7.7 to 1.9 FIO2 100% [facility] LABS Sodium 141 133 - 144 mmol/L [facility] LABS Potassium 3.7 3.4 - 5.3 mmol/L [facility] LABS Hemoglobin 10.3 (L) 13.3 - 17.7 g/dL [facility] LABS Glucose 76 60 - 99 mg/dL [facility] LABS Calcium Ionized Whole Blood 4.8 4.4 - 5.2 mg/dL [facility] LABS Specimen Anatomical Collection Method Collection Time Receive d Time (Source) Location / / Volume Laterality 02/02/2014 6:40 PM 4 6:44 CDT PM CDT Migel Merchant MD LAB - BLOOD ORDERABLES Performing Organization Address City/State/ZIP Code Phon e Number [facility] [address] [place] [address] [facility] LABS Glucose by meter (02/02/2014 5:11 [...] LAB - BEAKER POCT Performing Organization Address [facility] Phon e Number FV POINT OF CARE [...] MARYELLEN Blood component (02/02/2014 2:07 PM CDT) [facility] Method Time Signature Unit Number [id number] [facility] LABS Blood Red Blood [facility] Component Cells [facility] LABS Reduced Division 00 [facility] LABS Status of No longer [facility] Unit available [facility] 02/06/2014 HOSPITAL LAB 0300 Specimen Anatomical Collection Method Collection Time Receive d Time (Source) Location / / Volume Laterality 02/02/2014 2:07 PM 4 2:10 CDT PM CDT Caitlin Owens MD LABORATORY Performing Organization Address City/[facility]/ZIP Code Phon e Number [place] [address] [address] [place], [place] [address] [facility] LABS [facility] LAB Blood component (02/02/2014 2:07 PM CDT) [facility] Method Time Signature Unit Number [id number] [facility] LABS Blood Red Blood [facility] Component Cells [facility] LABS Reduced Division 00 [facility] LABS Status of No longer [facility] Unit available [facility] 02/06/2014 HOSPITAL LAB 0300 Specimen Anatomical Collection Method Collection Time Receive d Time (Source) Location / / Volume Laterality 02/02/2014 2:07 PM 4 2:10 CDT PM CDT Caitlin Owens MD LABORATORY Performing Organization Address City/[facility]/ZIP Code Phon e Number [place] [address] [address] [place], [place] [address] HOSPITAL [facility] LABS [facility] LAB ABO/Rh type and screen (02/02/2014 2:07 PM CDT) Patholo gist Method Time Signature Units Ordered 2 [facility] LABS ABO A [facility] LABS RH(D) Pos [facility] LABS Antibody Neg [facility] Screen [facility] LABS Test Valid [facility] Only At [facility] BLOOD BANK Center,[place] LAB w Hospital Specimen 02/05/2014 [facility] Expires [facility]OD [facility] LAB Crossmatch Red Blood [facility] Cells [facility] LABS Specimen Anatomical Collection Method Collection Time Receive d Time (Source) Location / / Volume Laterality Blood specimen 02/02/2014 2:07 PM 014 2:10 (specimen) CDT PM CDT Caitlin Owens MD LAB - BLOOD BANK TEST ORDER Performing Organization Address City/State/ZIP Code Phon e Number [facility] [address] [place], [place] [id number] [place] [address] LABS [facility] BLOOD BANK LAB (ABNORMAL) Lipid Profile (02/02/2014 2:07 PM CDT) P athologist Signature Cholesterol 135 <200 mg/dL [facility] LABS Comment: LDL Cholesterol is the primary guide to therapy. The NCEP recommends further evaluation of: patients with cholesterol greater than 200 mg/dL if additional risk facto rs are present, cholesterol greater than 240 mg/dL, triglycerides greater than 1 50 mg/dL, or HDL less than 40 mg/dL. Triglycerides 124 0 - 150 mg/dL [facility] HDL Cholesterol 34 (L) >40 mg/dL [facility] [place] LABS LDL Cholesterol Calculated 77 0 - 129 mg/dL [facility] LABS Comment: LDL Cholesterol is the primary guide to therapy: LDL-cholesterol goal in high risk patients is <100 mg/dL and in very high risk patients is <70 mg/dL. VLDL-Cholesterol 25 0 - 30 mg/dL [facility] Cholesterol/HDL Ratio 4.0 0.0 - 5.0 [facility] Specimen Anatomical Collection Method Collection Time Receive d Time (Source) Location / / Volume Laterality Blood specimen 02/02/2014 2:07 PM 014 2:08 (specimen) CDT PM CDT Caitlin Owens MD LAB - BLOOD ORDERABLES Performing Organization Address City/[facility]/ZIP Code Phon e Number [facility] [address] LABS (ABNORMAL) Hemoglobin A1c (02/02/2014 2:07 PM CDT) Analysis Performed At Patho logist Time Signature Hemoglobin A1C 6.2 (H) 4.3 - 6.0 [facility] Specimen Anatomical Collection Method Collection Time Receive d Time (Source) Location / / Volume Laterality Blood specimen 02/02/2014 2:07 PM 014 2:08 (specimen) CDT PM CDT Caitlin Owens MD LAB - BLOOD ORDERABLES Performing Organization Address City/[facility]/ZIP Code Phon e Number [facility] [address] LABS Hepatitis C antibody (02/02/2014 2:07 PM CDT) [facility] gist Method Time Signature Hepatitis C Negative NEG [facility] Antibody MICROBIOLOGY Specimen Anatomical Collection Method Collection Time Receive d Time (Source) Location / / Volume Laterality Blood specimen 02/02/2014 2:07 PM 014 2:08 (specimen) CDT PM CDT Caitlin Owens MD LAB - BLOOD ORDERABLES Performing Organization Address City/[facility]/ZIP Code Phon e Number [facility] 500 [place], [place] [id number] [place] [address] MICROBIOLOGY Hepatitis B core antibody IgM (02/02/2014 2:07 PM CDT) [facility] gist Method Time Signature Hepatitis B Negative NEG [facility] Core IgM MICROBIOLOGY Specimen Anatomical Collection Method Collection Time Receive d Time (Source) Location / / Volume Laterality Blood specimen 02/02/2014 2:07 PM 014 2:08 (specimen) CDT PM CDT Caitlin Owens MD LAB - BLOOD ORDERABLES Performing Organization Address City/[facility]/ZIP Code Phon e Number [phone] [place] [address] MICROBIOLOGY Hepatitis B surface antigen (02/02/2014 2:07 PM CDT) [facility] gist Method Time Signature Hep B Surface Negative NEG [facility] Agn MICROBIOLOGY Specimen Anatomical Collection Method Collection Time Receive d Time (Source) Location / / Volume Laterality Blood specimen 02/02/2014 2:07 PM 2 014 2:08 (specimen) CDT PM CDT Caitlin Owens MD LAB - BLOOD ORDERABLES Performing Organization Address City/[facility]/ZIP Code Phon e Number [facility] [address] MICROBIOLOGY HIV Antigen Antibody Combo (02/02/2014 2:07 PM CDT) [facility] Method Time Signature HIV Antigen Nonreactive NR [facility] Antibody HIV-1 p24 Ag & HIV-1/HIV-2 Ab Not Detected [facility] LABS Specimen Anatomical Collection Method Collection Time Receive d Time (Source) Location / / Volume Laterality Blood specimen 02/02/2014 2:07 PM 2 014 2:08 (specimen) CDT PM CDT Caitlin Owens MD LAB - BLOOD ORDERABLES Performing Organization Address City/[facility]/ZIP Code Phon e Number [facility] [address] LABS EBV Capsid Antibody IgM (02/02/2014 2:07 PM CDT) [facility] Method [place] Signature EBV Capsid <0.2 0.0 - 0.8 [facility] Antibody IgM No detectable antibody. AI [facility] LABS Specimen Anatomical Collection Method Collection Time Receive d Time (Source) Location / / Volume Laterality Blood specimen 02/02/2014 2:07 PM 014 2:08 (specimen) CDT PM CDT Caitlin Owens MD LAB - BLOOD ORDERABLES Performing Organization Address City/[facility]/ZIP Code Phon e Number [facility] [address] LABS (ABNORMAL) EBV Capsid Antibody IgG (02/02/2014 2:07 PM CDT) [facility] Method [place] Signature EBV Capsid >8.0 0.0 - 0.8 [facility] Antibody IgG Positive, suggests recent or past exposure AI [facility] () [place] LABS Specimen Anatomical Collection Method Collection Time Receive d Time (Source) Location / / Volume Laterality Blood specimen 02/02/2014 2:07 PM 014 2:08 (specimen) CDT PM CDT Caitlin Owens MD LAB - BLOOD ORDERABLES Performing Organization Address City/[facility]/ZIP Code Phon e Number [facility] [address] [place] [address] [facility] LABS CMV antibody IgM (02/02/2014 2:07 PM CDT) Analysis Performed At Patho logist Time Signature CMV Antibody <0.2 0.0 - 0.8 [facility] IgM Negative [facility] LABS Specimen Anatomical Collection Method Collection Time Receive d Time (Source) Location / / Volume Laterality Blood specimen 02/02/2014 2:07 PM 014 2:08 (specimen) CDT PM CDT Caitlin Owens MD LAB - BLOOD ORDERABLES Performing Organization Address City/[facility]/ZIP Code Phon e Number [facility] [address] [place], [place] [phone] [place] [address] LABS (ABNORMAL) CMV Antibody IgG (02/02/2014 2:07 PM CDT) P athologist Signature CMV Antibody 7.8 (H) 0.0 - 0.8 [facility] IgG [facility] LABS Comment: Positive Specimen Anatomical Collection Method Collection Time Receive d Time (Source) Location / / Volume Laterality Blood specimen 02/02/2014 2:07 PM 014 2:08 (specimen) CDT PM CDT Caitlin Owens MD LAB - BLOOD ORDERABLES Performing Organization Address City/[facility]/ZIP Code Phon e Number [facility] [address] [place], [place] [id number] [place] [address] LABS (ABNORMAL) Comprehensive metabolic panel (02/02/2014 2:07 PM CDT) Patholo gist Method Time Signature Sodium 141 133 - 144 [facility] mmol/L [facility] LABS Potassium 4.2 3.4 - 5.3 [facility] mmol/L [facility] LABS Chloride 101 94 - 109 [facility] mmol/L [facility] LABS Carbon Dioxide 26 20 - 32 [facility] mmol/L [facility] LABS Anion Gap 13 6 - 17 [facility] mmol/L [facility] LABS Glucose 112 (H) 60 - 99 [facility] mg/dL [facility] LABS Urea Nitrogen 42 (H) 7 - 30 [facility] mg/dL [facility] LABS Creatinine 6.03 (H) 0.66 - [facility] 1.25 [facility] mg/dL [facility]AMPUS LABS GFR Estimate 9 (L) >60 [facility] mL/min/1. [facility] 7m2 [place] LAB[facility] GFR Estimate If 11 (L) >60 [facility] Black mL/min/1. [facility] [address] LABS Calcium 9.9 8.5 - [facility] 10.4 [facility] mg/dL [place] [facility] Bilirubin Total 0.7 0.2 - 1.3 [facility] mg/dL [facility] LABS Albumin 4.2 3.3 - 4.9 [facility] g/dL [facility] LABS Protein Total 7.5 6.8 - 8.8 [facility] g/dL [facility] LABS Alkaline 88 40 - 150 [facility] Phosphatase U/L [facility] ALT 33 0 - 70 [facility] U/L [facility] AST 18 0 - 45 [facility] U/L [facility] LABS Specimen Anatomical Collection Method Collection Time Receive d Time (Source) Location / / Volume Laterality Blood specimen 02/02/2014 2:07 PM 014 2:08 (specimen) CDT PM CDT Caitlin Owens MD LAB - BLOOD ORDERABLES Performing Organization Address City/State/ZIP Code Phon e Number [address] LABS (ABNORMAL) CBC with platelets differential (02/02/2014 2:07 PM CDT) [facility] gist Method Time Signature WBC 6.3 4.0 - [facility] 11.0 [facility] 10e9/L [place] LABS RBC Count 3.71 (L) 4.4 - 5.9 [facility] 10e12/L [facility] LABS Hemoglobin 11.5 (L) 13.3 - [facility] 17.7 g/dL [facility] LABS Hematocrit 33.7 (L) 40.0 - [facility] 53.0 % [facility] LABS MCV 91 78 - 100 [facility] fl [facility] LABS MCH 31.0 26.5 - [facility] 33.0 pg [facility] LABS MCHC 34.1 31.5 - [facility] 36.5 g/dL [facility] LABS RDW 14.0 10.0 - [facility] 15.0 % [facility]S Platelet Count 110 (L) 150 - 450 [facility] 10e9/L [facility] LABS Diff Method Automated [facility] Method [facility] LABS % Neutrophils 52.4 % [facility] LABS % Lymphocytes 32.1 % [facility] % Monocytes 7.9 % [facility] % Eosinophils 7.1 % [facility] % Basophils 0.3 % [facility] % Immature 0.2 % [facility] Granulocytes [facility] LAB[facility] Absolute 3.3 1.6 - 8.3 [facility] Neutrophil 10e9/L [facility] [place] [facility] Absolute 2.0 0.8 - 5.3 [facility] Lymphocytes 10e9/L [facility] Absolute 0.5 0.0 - 1.3 [facility] Monocytes 10e9/L [facility] Absolute 0.5 0.0 - 0.7 [facility] Eosinophils 10e9/L [facility] Absolute 0.0 0.0 - 0.2 [facility] Basophils 10e9/L [facility] LABS Abs Immature 0.0 0 - 0.4 [facility] Granulocytes 10e9/L [facility] LABS Specimen Anatomical Collection Method Collection Time Receive d Time (Source) Location / / Volume Laterality Blood specimen 02/02/2014 2:07 PM 02/02/ 014 2:08 (specimen) CDT PM CDT Caitlin Owens MD LAB - BLOOD ORDERABLES Performing Organization Address City/State/ZIP Code Phon e Number [facility] [address] LABS Creatinine urine calculation only (02/02/2014 2:00 PM CDT) P athologist Signature Creatinine 88 mg/dL [facility] Urine [place] LABS Specimen Anatomical Collection Method Collection Time Receive d Time (Source) Location / / Volume Laterality 02/02/2014 2:00 PM 4 2:12 CDT PM CDT Caitlin Owens MD LAB - URINE ORDERABLES Performing Organization Address City/[facility] Phon e Number [facility] [address] LABS (ABNORMAL) Urine culture (02/02/2014 2:00 PM CDT) Component Value Ref Test Analysis Performed At Patholo gist Range Method Time Signature Specimen Midstream Urine [facility] Special Specimen received [facility] [...] Address City/[facility]/ZIP Code Phon e Number [address] LABS [facility] MICROBIOLOGY (ABNORMAL) Protein random urine (02/02/2014 2:00 PM CDT) [facility] Method Time Signature Protein Random 1.89 g/L [facility] Urine [facility] LABS Protein Total 2.15 (H) 0 - 0.2 [facility] Urine g/gr g/g Cr [facility] LABS Specimen Anatomical Collection Method Collection Time Receive d Time (Source) Location / / Volume Laterality Urine specimen URINE SPECIMEN 02/02/2014 2:00 PM 02/02 2:12 (specimen) OBTAINED BY CLEAN CDT PM CDT CATCH PROCEDURE / Unknown Caitlin Owens MD LAB - URINE ORDERABLES Performing Organization Address City/[facility] Phon e Number [address] LABS (ABNORMAL) Routine UA with microscopic (02/02/2014 2:00 PM CDT) [facility] Method Time Signature Color Urine Light Yellow [facility] LABS Appearance Urine Clear [facility] LABS Glucose Urine 70 (A) NEG mg/dL [facility] LABS Bilirubin Urine Negative NEG [facility] LABS Ketones Urine Negative NEG mg/dL [facility] LABS Specific [place] 1.008 1.003 - [facility] Urine 1.035 [facility] LABS Blood Urine Negative NEG [facility] LABS pH Urine 8.0 (H) 5.0 - 7.0 [facility] pH [facility] LABS Protein Albumin 100 (A) NEG mg/dL [facility] Urine [facility] LABS Urobilinogen Normal 0.0 - 2.0 [facility] mg/dL mg/dL [facility] LABS Nitrite Urine Negative NEG [facility] LABS Leukocyte Negative NEG [facility] Esterase Urine [facility] LABS Source Clean catch [facility] urine [facility] LABS WBC Urine 1 0 - 2 [...] Phon e Number [facility] [address] [place] [address] [facility] LABS (ABNORMAL) Glucose by meter [...] 12-lead, tracing only (02/02/2014 1:58 PM CDT) [facility] gist Method Time Signature Interpretation ECG Click View RADIOLOGY Image link RESULTS to view waveform and result Specimen (Source) Anatomical Collection Method Collection Time Re ceived Time Location / / Volume Laterality 02/02/2014 1:58 PM CDT Caitlin Owens MD ECG ORDERABLES Performing Organization Address City/[facility]/ZIP [facility] Phon e Number RADIOLOGY RESULTS documented in [...] dose, When verbally ordered by the prescriber. Cedar throat with 1-4 sprays 5 minutes prior [...] Provider: Lashaun Braswell, RN)1924 (Given - Provider: Anmnarie Colby, BOGDAN) 0902 (Given - Provider: Amanda [...] given. Do not give if pre-prandial 2210 (z Missed (do not use) - Provider: Annmarie Colby RN - Reason: Other - Comment: pt. not eating at HS) 2223 (z Missed (do not use) - Provider: [...] % mouth solution 15 mL (COMPLE ALOK) 15 (Given - Provider: Viry Kessler RN) 15 [...] Ganesh Covarrubias RN)195 (Given - Provider: Annmarie Colby RN) 0836 (Given - Provider: Lashaun Braswell, BOGDAN)2004 (Given - Provider: Annmarie Colby, BOGDAN) 0809 [...] RN) 0838 (Given - Provider: Lashaun Braswell, RN)1820 (Given - Provider: Lashaun Braswell RN) [...] 30 mg, Oral, DAILY, First dose on 02/06/14 at 1400, For 2 day s senna-docusate (SENOKOT-S;PERICOLACE) 8.6-50 MG per ta blet 2 tablet 1203 (Given - Provider: Ganesh Covarrubias RN)1952 (Given - Provider: Annmarie Colby RN) 0836 (Given - Provider: Lashaun Braswell RN)2000 (z Missed (do not use) - Provider: [...] Lashaun Braswell, BOGDAN)1656 (Given - Provider: Odalis Seaman) 0803 (Canceled Entry - Provider: Lashaun Braswell [...] (do not use) - Provider: Lynne Gatica [facility] - Reason: Other - Comment: Dose already received, see previous order) 0838 (Given - Provider: Lashaun Braswell RN)1820 (Given - Provider: Lashaun Braswell RN) 0809 (Given - Provider: Amanda Hernandez RN) 1.5 mg, Oral, 2 TIMES DAILY., [...] draw. documented in this encounter Care Teams Adult Care Provider Relationship Specialty Start Date End Date Momo Forbes PCP - General Family Practice 01/02/14 [place] [phone] Ingrid Santana, RN Registered Nurse Transplant 02/10/12 documented as of this encounter
--- OUTSIDE RECORDS SUMMARY | 2022-07-29 13:06 | XMS_ITS | Encounter Summary ---
:1950 Author Organization Veteran Address [address] [place] [address] Care Team Providers Name Role Phone Ingrid Santana RN Unavailable Unavailable Momo Forbes Primary Care Provider Encounter Details Date Type Department Care Team Description 01/21/2014 Results Only LABORATORY RESULTS Mingo Dangelo MD [address] [facility] [address] [place] [address] (Wo rk) Social History Tobacco [...] HLA Lukasz Class I Single Antigen (01/21/2014) [facility] gist Method Time Signature SA1 Test [...] HLA LABORATORY Immunology/Histocompatabil [place], [place] [address] ity [facility] [address], Room [address]580 HISTOTRAC documented in this encounter Visit Diagnoses Not on filedocumented in this encounter Care Teams Set Up Mechanic Stamping Machines Relationship Specialty Start Date End Date Momo Forbes PCP - General Family Practice 01/02/14 [facility] [address] [place], [place] [phone] Ingrid Santana, RN Registered Nurse Transplant 02/10/12 documented as of this encounter
--- OUTSIDE RECORDS SUMMARY | 2022-07-29 13:06 | XMS_ITS | Encounter Summary ---
:1950 Author Organization [place] Address [address] [place] [address] Care Team Providers Name Role Phone Ingrid Santana RN Unavailable Unavailable Momo Forbes Primary Care Provider Reason for Visit Reason Onset Date Comments Pre Visit Planning - Done 01/30/2014 EKG: pre op: [age] yo M, here for continued clearance for possib le kidney txp. Encounter Details Date Type Department Care Team Description 01/30/2014 PRE VISIT [facility] Barbara Bradley Pre Visit Planning - Physicians Heart MD Monae Done (EKG: pre op: 63 [address] [place], [place] [address] continued clearance 4th Floor, Clinic [address] for possible kidney [facility] [address] txp.) [address] [place] [phone] Social History Tobacco Use Types Packs/Day Years [...] On HD since Aug 2011. No past CT, stress tests or coronary angiogorams. No chest [...] disease documented in this encounter Care Teams Medic Technician Relationship Specialty Start Date End Date Momo Forbes PCP - General Family Practice 01/02/14 [facility] [address] [place] [address] Ingrid Santana, RN Registered Nurse Transplant 02/10/12 documented as of this encounter
--- OUTSIDE RECORDS SUMMARY | 2022-07-29 13:06 | XMS_ITS | Encounter Summary ---
:1950 Author Organization [place] Address [address] [place] [address] Care Team Providers Name Role Phone Ingrid Santana RN Unavailable Unavailable Momo Forbes Primary Care Provider Encounter Details Date Type Department Care Team Description 01/21/2014 Results Only LABORATORY RESULTS Mingo Dangelo MD [address] [facility] [address] [facility] [address] [place] [address] (Wo rk) Social History Tobacco [...] Results HLA Flow T/B Crossmatch Allo (01/21/2014) [facility] gist Method Time Signature Crossmatch Donor:[id number], ?Crossmatch Date:02/02/2014 HISTOTRAC Result (Note) Serum Date [...] Phon e Number [facility] HLA LABORATORY Immunology/Histocompatabil [place], [place] [address] [address] [facility] [address] [facility] [address] Building, Room 3-580 HISTOTRAC documented in this encounter Visit Diagnoses Not on filedocumented in this encounter Care Teams Gold Layer Relationship Specialty Start Date End Date Momo Forbes PCP - General Family Practice 01/02/14 [facility] [address] [place] [address] Ingrid Santana, RN Registered Nurse Transplant 02/10/12 documented as of this encounter
--- OUTSIDE RECORDS SUMMARY | 2022-07-29 13:06 | XMS_ITS | Encounter Summary ---
:1950 Author Organization [place] Address [address] [place] [address] Care Team Providers Name Role Phone Toña Jones MD Primary Care Provider Ingrid Santana RN Unavailable Unavailable Encounter Details Date Type Department Care Team Description 12/10/2013 Telephone Transplant Surgery C Nazia Bledsoe LPN 2nd Floor, Clinic [address] [place] [phone] Social History Tobacco Use Types Packs/Day [...] on filedocumented in this encounter Care Teams Measurement Advisor Relationship Specialty Start Date End Date Toña Jones MD PCP - General Nephrology 11/25/11 01/01/14 Ingrid Santana, RN Registered Nurse Transplant 02/10/12 documented as of this encounter
--- OUTSIDE RECORDS SUMMARY | 2022-07-29 13:07 | XMS_ITS | Encounter Summary ---
:1950 Author Organization [place] Address [address] [place] [address] Care Team Providers Name Role Phone Toña Jones MD Primary Care Provider Ingrid Santana RN Unavailable Unavailable Encounter Details Date Type Department Care Team Description 07/03/2012 Results Only LABORATORY RESULTS Barbara Bradley MD [address] [place], [place] [address] Social History Tobacco Use [...] HLA Lukasz Class I Single Antigen (07/03/2012) [facility] gist Method Time Signature SA1 [...] / Volume Laterality 07/03/2012 07/05/2012 1:57 PM MOTION AND TIME STUDY TEACHER Barbara Bradley MD LAB - IMMUNOLOGY ORDERABLES Performing Organization Address City/State/ZIP Code Phon e Number [facility] HLA LABORATORY Immunology/Histocompatabil [place], [place] [address] [facility] [address] [facility] [address] Building, Room 3-580 HISTOTRAC documented in this encounter Visit Diagnoses Not on filedocumented in this encounter Care Teams Public Affairs Director Relationship Specialty Start Date End Date Toña Jones MD PCP - General Nephrology 11/25/11 01/01/14 Ingrid Santana, RN Registered Nurse Transplant 02/10/12 documented as of this encounter
--- OUTSIDE RECORDS SUMMARY | 2022-07-29 13:07 | XMS_ITS | Encounter Summary ---
:1950 Author Organization [place] Address [address] [place] [address] Care Team Providers Name Role Phone Toña Jones MD Primary Care Provider Ingrid Santana RN Unavailable Unavailable Encounter Details Date Type Department Care Team Description 08/25/2012 Results Only LABORATORY RESULTS Barbara Bradley MD [address] [place], [place] [address] Social History Tobacco Use [...] AM Results f or this CROSSMATCH ALLO ECONOMIC HISTORIAN procedure ar e in the results section. documented in this encounter Results HLA Flow T/B Crossmatch Allo (08/25/2012 9:49 AM ECONOMIC HISTORIAN) [facility] Method Time Signature Crossmatch Donor:ABRAHAM HICKEY [...] Volume Laterality 08/25/2012 9:49 AM 3 9:06 ECONOMIC HISTORIAN AM ECONOMIC HISTORIAN Barbara Bradley MD LAB - IMMUNOLOGY ORDERABLES Performing Organization Address City/State/ZIP Code Phon e Number [facility] HLA LABORATORY Immunology/Histocompatabil [place], [place] [address] [address] [facility] [address], Room [address]-580 HISTOTRAC documented in this encounter Visit Diagnoses Not on filedocumented in this encounter Care Teams Site Supervising Technical Operator Relationship Specialty Start Date End Date Toña Jones MD PCP - General Nephrology 11/25/11 01/01/14 Ingrid Santana RN Registered Nurse Transplant 02/10/12 documented as of this encounter
--- OUTSIDE RECORDS SUMMARY | 2022-07-29 13:07 | XMS_ITS | Encounter Summary ---
:1950 Author Organization [place] Address [address] [place] [address] Care Team Providers Name Role Phone Toña Jones MD Primary Care Provider Ingrid Santana RN Unavailable Unavailable Encounter Details Date Type Department Care Team Description 07/30/2013 Results Only LABORATORY RESULTS Mingo Dangelo MD [address] [facility] [address] [place] [address] (Wo rk) Social History Tobacco [...] HLA Lukasz Class II Single Antigen (07/30/2013) [facility] gist Method Time Signature SA2 Test [...] Volume Laterality 07/30/2013 07/31/2013 2:1 0 PM BELT GLASS SANDER Mingo Dangelo MD LAB - IMMUNOLOGY ORDERABLES Performing Organization Address City/State/ZIP Code Phon e Number [facility] Immunology/Histocompatabil [place], [place] [address] ity [facility] Ctr [address], Room 3-580 HISTOTRAC documented in this encounter Visit Diagnoses Not on filedocumented in this encounter Care Teams Shank Sander Relationship Specialty Start Date End Date Toña Jones MD PCP - General Nephrology 11/25/11 01/01/14 Ingrid Santana, RN Registered Nurse Transplant 02/10/12 documented as of this encounter
--- OUTSIDE RECORDS SUMMARY | 2022-07-29 13:07 | XMS_ITS | Encounter Summary ---
:1950 Author Organization [place] Address [address] [place] [address] Care Team Providers Name Role Phone Toña Jones MD Primary Care Provider Ingrid Santana RN Unavailable Unavailable Encounter Details Date Type Department Care Team Description 07/30/2013 Results Only LABORATORY RESULTS Mingo Dangelo MD [address] [facility] [address] [place] [address] (Wo rk) Social History Tobacco [...] HLA Lukasz Class I Single Antigen (07/30/2013) [facility] gist Method Time Signature SA1 Test [...] / Volume Laterality 07/30/2013 07/31/2013 2:10 PM IRISH MOSS GATHERER Mingo Dangelo MD LAB - IMMUNOLOGY ORDERABLES Performing Organization Address City/State/ZIP Code Phon e Number [facility] Immunology/Histocompatabil [place], [place] [address] ity [facility] Ctr [address] Building, Room 3-580 HISTOTRAC documented in this encounter Visit Diagnoses Not on filedocumented in this encounter Care Teams Rn Family Practice Relationship Specialty Start Date End Date Toña Jones MD PCP - General Nephrology 11/25/11 01/01/14 Ingrid Santana, RN Registered Nurse Transplant 02/10/12 documented as of this encounter
--- OUTSIDE RECORDS SUMMARY | 2022-07-29 13:07 | XMS_ITS | Encounter Summary ---
:1950 Author Organization [place] Address Pending sale to [facility] [address] Care Team Providers Name Role Phone Toña [...] on filedocumented in this encounter Care Teams Surety Bond Agent Relationship Specialty Start Date End Date Toña Jones MD PCP - General Nephrology 11/25/11 01/01/14 Momo Forbes PCP - General Family Practice 01/02/[address] [place] [address] Ingrid Santana, RN Registered Nurse Transplant 02/10/12 documented as of this encounter
--- OUTSIDE RECORDS SUMMARY | 2022-07-29 13:07 | XMS_ITS | Encounter Summary ---
:1950 Author Organization [place] Address Formerly [facility], [facility] [place] [address] Care Team Providers Name Role Phone Toña [...] on filedocumented in this encounter Care Teams Encephalographer Relationship Specialty Start Date End Date Toña Jones MD PCP - General Nephrology 11/25/11 01/01/14 Momo Forbes PCP - General Family Practice 01/02/[address] [place] [address] Ingrid Santana, RN Registered Nurse Transplant 02/10/12 documented as of this encounter
--- OUTSIDE RECORDS SUMMARY | 2022-07-29 13:07 | XMS_ITS | Encounter Summary ---
:1950 Author Organization [place] Address [address] [facility] [place] [address] Care Team Providers Name Role Phone Toña [...] Ump Sot Surgery 2nd Floor, Clinic [address] [phone] Referral ID Status Reason Start Date Expiration Date Visits Requ ested Visits Authorized [id number] Closed 12/10/2013 06/08/2014 1 1 Consultation - Closed Specialty Diagnoses / Procedures Referred By Contact Refer red To Contact Diagnoses Organ transplant candidate ESRD (end stage renal disease) on dialysis (H) DM (diabetes mellitus), type 2 (H) Zz Ump Sot Surgery [facility] Floor, [facility] [address] [phone] Referral ID Status Reason Start Date Expiration Date Visits Requ ested Visits Authorized [id number] Closed 12/10/2013 06/08/2014 1 1 Encounter Details Date Type Department Care Team Description 12/07/2013 Orders Only Transplant Surgery Nazia March LPN Organ transplant candidate (Primary Dx); Clinic Screening for other and unsp ecified cardiovascular conditions; 2nd Floor, Clinic 2A ESRD (end stage renal diseas e) on dialysis (H); Tommy Wilburn DM (madeleine betes mellitus), type 2 (H) [address] [phone] Social History Tobacco Use [...] uncontrolled documented in this encounter Care Teams Insulation Blower Relationship Specialty Start Date End Date Toña Jones MD PCP - General Nephrology 11/25/11 01/01/14 Ingrid Santana, RN Registered Nurse Transplant 02/10/12 documented as of this encounter
--- OUTSIDE RECORDS SUMMARY | 2022-07-29 13:07 | XMS_ITS | Encounter Summary ---
:1950 Author Organization [place] Address [address] [place] [address] Care Team Providers Name Role Phone Toña Jones MD Primary Care Provider Ingrid Santana RN Unavailable Unavailable Reason for Visit (Routine) - Closed Specialty Diagnoses / Procedures Referred By Contact Refer red To Contact Radiology Diagnoses NM MPI SCAN Procedure Notes: UNSPECIFIED ESSENTIAL HYPERTENSION,PREOPERATIVE EXAMINATION, UNSPECIFIED, [facility] Nuclear Medicine Procedures RADIOLOGY [address] [place] [address] Phone: Referral ID Status Reason Start Date Expiration Date Visits Requ ested Visits Authorized [id number] Closed 02/11/2012 02/10/2013 1 1 Encounter Details Date Type Department Care Team Description 02/15/[address] [facility] Barbara Bradley ESRD (end stage [facility] Imaging MD Monae renal disease) (H) [address] [facility] [address] [place] [address] Social History Tobacco Use [...] tablet by mouth 0 02/18/2014 daily. B ulcvlnh-S-tphhy acid Take 1 capsule by mouth 0 [...] disease documented in this encounter Care Teams Department Sales Manager Relationship Specialty Start Date End Date Toña Jones MD PCP - General Nephrology 11/25/11 01/01/14 Ingrid Santana RN Registered Nurse Transplant 02/10/12 documented as of this encounter
--- OUTSIDE RECORDS SUMMARY | 2022-07-29 13:07 | XMS_ITS | Encounter Summary ---
:1950 Author Organization [place] Address [address] [place] [address] Care Team Providers Name Role Phone Toña Jones MD Primary Care Provider Ingrid Santana RN Unavailable Unavailable Encounter Details Date Type Department Care Team Description 01/17/2013 Results Only LABORATORY RESULTS Barbara Bradley MD [address] [place], [place] [address] Social History Tobacco [...] HLA Lukasz Class I Single Antigen (01/17/2013) [facility] gist Method Time Signature SA1 [...] Phon e Number [facility] Immunology/Histocompatabil [place], [place] [address] ity [facility] Ctr [address] [facility] [address] Building, Room 3-580 HISTOTRAC documented in this encounter Visit Diagnoses Not on filedocumented in this encounter Care Teams Stoneworker Relationship Specialty Start Date End Date Toña Jones MD PCP - General Nephrology 11/25/11 01/01/14 Ingrid Santana, RN Registered Nurse Transplant 02/10/12 documented as of this encounter
--- OUTSIDE RECORDS SUMMARY | 2022-07-29 13:07 | XMS_ITS | Encounter Summary ---
:1950 Author Organization [place] Address [address] [place] [address] Care Team Providers Name Role Phone Toña Jones MD Primary Care Provider Ingrid Santana RN Unavailable Unavailable Encounter Details Date Type Department Care Team Description 07/03/2012 Results Only LABORATORY RESULTS Barbara Bradley MD [address] [place], [place] [address] Social History Tobacco Use [...] in this encounter Results Virtual Crossmatch (07/03/2012) [facility] Method Time Signature Crossmatch Donor:ABRAHAM HICKEY ? Crossmatch Date:07/24/2012 HISTOTRAC Result (Note) Serum Date ??Test ?Result ? Donor Specific Antibody ?Comments 07/03/2012 ??Class I/Virtxm1 ? DSA ?None ? 07/03/2012 ??Class II/Virtxm 1 ?DSA ?None ? Specimen (Source) Anatomical Collection Method Collection Time Re ceived Time Location / / Volume Laterality 07/03/2012 07/05/2012 1:57 PM WORKPLACE REHABILITATION OFFICER Barbara Bradley MD LAB - IMMUNOLOGY ORDERABLES Performing Organization Address City/State/ZIP Code Phon e Number [facility] Immunology/Histocompatabil [place], [place] [address] [facility] [address], Room 3-580 HISTOTRAC documented in this encounter Visit Diagnoses Not on filedocumented in this encounter Care Teams Metallography Teacher Relationship Specialty Start Date End Date Toña Jones MD PCP - General Nephrology 11/25/11 01/01/14 Ingrid Santana RN Registered Nurse Transplant 02/10/12 documented as of this encounter
--- OUTSIDE RECORDS SUMMARY | 2022-07-29 13:07 | XMS_ITS | Encounter Summary ---
:1950 Author Organization [place] Address [facility] [place] [address] Care Team Providers Name Role Phone Toña [...] Associated Diagnosis Comme nts PATHOLOGY RESULT - [facility] 03/17/2012 8:24 AM CDT SCAN - ARCHIVE documented in this encounter Results PATHOLOGY RESULT - [facility] SCAN - ARCHIVE (03/17/2012 8:24 AM CDT) Specimen (Source) Anatomical Location Collection Method / Collectio n Time Received Time / Laterality Volume Narrative This result has an attachment that is no t available. Gich Provider LAB - COPATH SPECIAL DIAG OR DERABLES documented in this encounter Visit Diagnoses Not on filedocumented in this encounter Care Teams Hospice Nurse Relationship Specialty Start Date End Date Toña Jones MD PCP - General Nephrology 11/25/11 01/01/14 Momo Forbes PCP - General Family Practice 01/02/14 [facility] [address] [place] [address] Ingrid Santana, RN Registered Nurse Transplant 02/10/12 documented as of this encounter
--- OUTSIDE RECORDS SUMMARY | 2022-07-29 13:07 | XMS_ITS | Encounter Summary ---
:1950 Author Organization [place] Address [address] [place] [address] Care Team Providers Name Role Phone Toña Jones MD Primary Care Provider Ingrid Santana RN Unavailable Unavailable Encounter Details Date Type Department Care Team Description 11/05/2013 Results Only LABORATORY RESULTS Barbara Bradley MD [address] [place], [place] [address] Social History Tobacco Use [...] II Single Antigen (11/05/2013 7:20 AM CDT) [facility] gist Method Time Signature SA2 Test [...] LABORATORY Immunology/Histocompatabil [place], [place] [address] ity [facility]alth [facility] Ctr [address], Room 3-580 HISTOTRAC documented in this encounter Visit Diagnoses Not on filedocumented in this encounter Care Teams Sales Representative Facility Services Relationship Specialty Start Date End Date Toña Jones MD PCP - General Nephrology 11/25/11 01/01/14 Ingrid Santana RN Registered Nurse Transplant 02/10/12 documented as of this encounter
--- OUTSIDE RECORDS SUMMARY | 2022-07-29 13:07 | XMS_ITS | Encounter Summary ---
:1950 Author Organization [place] Address [address] [place] [address] Care Team Providers Name Role Phone Toña [...] HLA Lukasz Class I Single Antigen (10/11/2012) [facility] gist Method Time Signature SA1 Test Single [...] / Volume Laterality 10/11/2012 10/12/2012 1:03 PM SHOEMAKER APPRENTICE Barbara Bradley MD LAB - IMMUNOLOGY ORDERABLES Performing Organization Address City/State/ZIP Code Phon e Number [facility] Immunology/Histocompatabil [place], [place] [address] ity [facility] Ctr [address] [facility] [address] Building, Room 3-580 HISTOTRAC documented in this encounter Visit Diagnoses Not on filedocumented in this encounter Care Teams Value Analyst Relationship Specialty Start Date End Date Toña Jones MD PCP - General Nephrology 11/25/11 01/01/14 Ingrid Santana, RN Registered Nurse Transplant 02/10/12 documented as of this encounter
--- OUTSIDE RECORDS SUMMARY | 2022-07-29 13:07 | XMS_ITS | Encounter Summary ---
:1950 Author Organization [place] Address [facility] [place] [address] Care Team Providers Name Role Phone Toña [...] on filedocumented in this encounter Care Teams Account Planner Relationship Specialty Start Date End Date Toña Jones MD PCP - General Nephrology 11/25/11 01/01/14 Momo Forbes PCP - General Family Practice 01/02/[address] [place] [address] Ingrid Santana, RN Registered Nurse Transplant 02/10/12 documented as of this encounter
--- OUTSIDE RECORDS SUMMARY | 2022-07-29 13:07 | XMS_ITS | Encounter Summary ---
:1950 Author Organization [place] Address [address] [place] [address]. [place] [address] Care Team Providers Name Role Phone Toña Jones MD Primary Care Provider Ingrid Santana RN Unavailable Unavailable Momo Forbes Primary Care Provider Encounter Details Date Type Department Care Team Description 02/18/2012 Abstract [facility] 2nd Floor, Clinic 2A [address] [phone] Social History Tobacco Use [...] filedocumented in this encounter Care Teams Salesperson Parts Relationship Specialty Start Date End Date Toña Jones MD PCP - General Nephrology 11/25/11 01/01/14 Momo Forbes PCP - General Family Practice 01/02/[address] [address] Ingrid Santana, RN Registered Nurse Transplant 02/10/12 documented as of this encounter
--- OUTSIDE RECORDS SUMMARY | 2022-07-29 13:07 | XMS_ITS | Encounter Summary ---
:1950 Author Organization [place] Address [address] [place] [address] Care Team Providers Name Role Phone Toña Jones MD Primary Care Provider Ingrid Santana RN Unavailable Unavailable Encounter Details Date Type Department Care Team Description 02/15/2012 Hospital Encounter [facility] Barbara Bradley Unsp ecified essential hypertension; [facility] Imaging MD Monae Pre-operative clearance [address] [place] [phone] Social History Tobacco Use Types Packs/Day [...] tablet by mouth 0 02/18/2014 daily. B boqvfey-L-hdczu acid Take 1 capsule by mouth 0 [...] unspecified documented in this encounter Care Teams Wood Finisher Relationship Specialty Start Date End Date Toña Jones MD PCP - General Nephrology 11/25/11 01/01/14 Ingrid Santana, RN Registered Nurse Transplant 02/10/12 documented as of this encounter
--- OUTSIDE RECORDS SUMMARY | 2022-07-29 13:07 | XMS_ITS | Encounter Summary ---
:1950 Author Organization [place] Address [address] [place] [address] Care Team Providers Name Role Phone Toña Jones MD Primary Care Provider Ingrid Santana RN Unavailable Unavailable Encounter Details Date Type Department Care Team Description 10/11/2012 Results Only LABORATORY RESULTS Barbara Bradley MD [address] [place], [place] [address] Social History Tobacco Use [...] HLA Lukasz Class II Single Antigen (10/11/2012) [facility] gist Method Time Signature SA2 Test [...] / Volume Laterality 10/11/2012 10/12/2012 1:03 PM MOBILE SALES TECHNICIAN [place] Suseekar Bradley MD LAB - IMMUNOLOGY ORDERABLES Performing Organization Address City/State/ZIP Code Phon e Number [facility] Immunology/Histocompatabil [place], [place] [address] ity [facility] C[facility] [address] [facility] [address] Building, Room 3-580 HISTOTRAC documented in this encounter Visit Diagnoses Not on filedocumented in this encounter Care Teams Horse Breeder Relationship Specialty Start Date End Date Toña Jones MD PCP - General Nephrology 11/25/11 01/01/14 Ingrid Santana, RN Registered Nurse Transplant 02/10/12 documented as of this encounter
--- OUTSIDE RECORDS SUMMARY | 2022-07-29 13:07 | XMS_ITS | Encounter Summary ---
:1950 Author Organization [place] Address [facility]0 [facility] [place] [address] Care Team Providers Name Role Phone Toña Joens MD Primary Care Provider Ingrid Santana RN Unavailable Unavailable Reason for Visit Reason Comments Social Work Services Encounter Details Date Type Department Care Team Description 02/10/2012 Office Visit [facility] Stacy Organ transplant 2nd Floor, Clinic 2A SHALOM Zacarias candidate (Primary [facility] Dx) [address] [phone] Social History Tobacco Use Types Packs/Day Years [...] old Duration of Interview: 40 min Process: Qwjq-zd-Iteb Interview (counseling < 50%) Present at Appointment: Latrell, his brother Kiran and Latrell Zamora, Transplant Financial Travel Services ProfessionalLoss Prevention Representative Worker: CECY Ortiz, PRIMER CHARGING TOOL SETTER Date: February 10, 2012 Type of transplant: Kidney Donor type: Latrell indicated that he does not know of any potential donors at this time. Cadaver Prior Transplants: No Status of Transplant: Current Living Situation Location: [facility] [address] [place] [address] [facility] [phone] With Whom: Alone Family/ Social Support: Kiran lives in [place], [place]. Available, helpful Committed relationship: Latrell indicated [...] Income Savings Insurance Latrell has BC/BS through [email or web address] until 07/22/13. He has also applied for [...] that assist with fund raising. Discussed asking fiber worker for assistance with cobra premiums and [...] CECY Ortiz, [facility] Title: Clinical Public Welfare Director documented in this encounter Plan of Treatment Not on filedocumented as of this encounter Visit Diagnoses Diagnosis Organ transplant candidate - Primary Awaiting organ transplant status documented in this encounter Care Teams Yeast Maker Relationship Specialty Start Date End Date Toña Jones MD PCP - General Nephrology 11/25/11 01/01/14 Ingrid Santana, RN Registered Nurse Transplant 02/10/12 documented as of this encounter
--- OUTSIDE RECORDS SUMMARY | 2022-07-29 13:07 | XMS_ITS | Encounter Summary ---
:1950 Author Organization [place] Address [address] [facility] [place] [address] Care Team Providers Name Role Phone Toña [...] 2 (H) Tommy Wilburn (Primar y Dx) [address] [phone] Social History Tobacco Use Types Packs/Day Years [...] this time. Patient to follow up with multi share program coordinator. documented in this encounter Plan of Treatment Not on filedocumented as of this encounter Visit Diagnoses Diagnosis DM (diabetes mellitus), type 2 (H) - Ana ashley Type II or unspecified type diabetes aung litus without mention of complication, not stated as uncontrolled documented in this encounter Care Teams Resident Care Provider Relationship Specialty Start Date End Date Toña Jones MD PCP - General Nephrology 11/25/11 01/01/14 Ingrid Santana RN Registered Nurse Transplant 02/10/12 documented as of this encounter
--- OUTSIDE RECORDS SUMMARY | 2022-07-29 13:07 | XMS_ITS | Encounter Summary ---
:1950 Author Organization [place] Address [address] [place] [address] Care Team Providers Name Role Phone Toña Jones MD Primary Care Provider Ingrid Santana RN Unavailable Unavailable Reason for Visit (Routine) - Closed Specialty Diagnoses / Procedures Referred By Contact Refer red To Contact Radiology Diagnoses NM MPI L[place]AN Procedure Notes: UNSPECIFIED ESSENTIAL HYPERTENSION,PREOPERATIVE EXAMINATION, UNSPECIFIED, [facility] Nuclear Medicine Procedures RADIOLOGY [address] [place] [address] Phone: Referral ID Status Reason Start Date Expiration Date Visits Requ ested Visits Authorized [id number] Closed 02/11/2012 02/10/2013 1 1 Encounter Details Date Type Department Care Team Description 02/15/2012 Hospital Encounter [facility] Barbara Bradley Imaging MD Monae [address] [facility] [address] [place], [place] [phone] [phone] Social History Tobacco Use Types Packs/Day Years [...] tablet by mouth 0 02/18/2014 daily. B prajzoa-Q-cotot acid Take 1 capsule by mouth 0 [...] on filedocumented in this encounter Care Teams Job Tracer Relationship Specialty Start Date End Date Toña Jones MD PCP - General Nephrology 11/25/11 01/01/14 Ingrid Santana RN Registered Nurse Transplant 02/10/12 documented as of this encounter
--- OUTSIDE RECORDS SUMMARY | 2022-07-29 13:07 | XMS_ITS | Encounter Summary ---
:1950 Author Organization [place] Address [address] [place] [address] Care Team Providers Name Role Phone Toña Jones MD Primary Care Provider Ingrid Santana RN Unavailable Unavailable Encounter Details Date Type Department Care Team Description 02/28/2013 Orders Only [facility] Molly Sanderson Organ transplant 500 [facility] candidate (Primary Dx) [place] [address] Social History Tobacco Use Types Packs/Day Years [...] status documented in this encounter Care Teams Tours Hostess Relationship Specialty Start Date End Date Toña Jones MD PCP - General Nephrology 11/25/11 01/01/14 Ingrid Santana RN Registered Nurse Transplant 02/10/12 documented as of this encounter
--- OUTSIDE RECORDS SUMMARY | 2022-07-29 13:07 | XMS_ITS | Encounter Summary ---
:1950 Author Organization [place] Address [facility] [place] [address] Care Team Providers Name Role Phone Toña [...] filedocumented in this encounter Care Teams Home And School Visitor Relationship Specialty Start Date End Date Toña Jones MD PCP - General Nephrology 11/25/11 01/01/14 Momo Forbes PCP - General Family Practice 01/02/[address] [place] [address] Ingrid Santana, RN Registered Nurse Transplant 02/10/12 documented as of this encounter
--- OUTSIDE RECORDS SUMMARY | 2022-07-29 13:07 | XMS_ITS | Encounter Summary ---
:1950 Author Organization [place] Address [address] [place] [address] Care Team Providers Name Role Phone Toña Jones MD Primary Care Provider Ingrid Santana RN Unavailable Unavailable Encounter Details Date Type Department Care Team Description 07/03/2012 Results Only LABORATORY RESULTS Barbara Bradley MD [address] [place], [place] [address] Social History Tobacco Use [...] HLA Lukasz Class II Single Antigen (07/03/2012) [facility] gist Method Time Signature SA2 Test Single Antigen HISTOTRAC Method SA2 Cell Class II HISTOTRAC SA2 PRA %POS 0 HISTOTRAC SA2 Hi Risk None HISTOTRAC Lukasz SA2 Mod Risk None HISTOTRAC Lkuasz SA2 Comments High-risk, mfi >3,000. Mod-r isk, mfi 500-3,000. Predictive PRA derived HISTOTRAC from local donor pool. Specimen (Source) Anatomical Collection Method Collection Time Re ceived Time Location / / Volume Laterality 07/03/2012 07/05/2012 1:57 PM GLASSWARE MAKER DEMONSTRATOR [place] Suseekar Bradley MD LAB - IMMUNOLOGY ORDERABLES Performing Organization Address City/State/ZIP Code Phon e Number [facility] Immunology/Histocompatabil [place], [place] [address] ity [facility] Ctr [address] [facility] [address] Building, Room 3-580 HISTOTRAC documented in this encounter Visit Diagnoses Not on filedocumented in this encounter Care Teams Information Systems Specialist Relationship Specialty Start Date End Date Toña Jones MD PCP - General Nephrology 11/25/11 01/01/14 Ingrid Santana, RN Registered Nurse Transplant 02/10/12 documented as of this encounter
--- OUTSIDE RECORDS SUMMARY | 2022-07-29 13:07 | XMS_ITS | Encounter Summary ---
:1950 Author Organization [place] Address [facility] [place] [address] Care Team Providers Name Role Phone Toña [...] filedocumented in this encounter Care Teams Campus Executive Director Relationship Specialty Start Date End Date Toña Jones MD PCP - General Nephrology 11/25/11 01/01/14 Momo Forbes PCP - General Family Practice 01/02/[address] [place] [address] Inrgid Santana, RN Registered Nurse Transplant 02/10/12 documented as of this encounter
--- OUTSIDE RECORDS SUMMARY | 2022-07-29 13:07 | XMS_ITS | Encounter Summary ---
:1950 Author Organization [place] Address [address] [place] [address] Care Team Providers Name Role Phone Toña Jones MD Primary Care Provider Ingrid Santana RN Unavailable Unavailable Encounter Details Date Type Department Care Team Description 02/10/2012 Orders Only [facility] Anita Joshi MD Diabetes mellitus, type 2 (H); Clinic Imaging [address] [place] [address] End stage renal disease (H) [facility] [address] [place] [address] 1st Floor, Clinic [id number] [place] [address] [address] Social History Tobacco Use Types [...] disease documented in this encounter Care Teams Cuff Maker Relationship Specialty Start Date End Date Toña Jones MD PCP - General Nephrology 11/25/11 01/01/14 Ingrid Santana RN Registered Nurse Transplant 02/10/12 documented as of this encounter
--- OUTSIDE RECORDS SUMMARY | 2022-07-29 13:07 | XMS_ITS | Encounter Summary ---
:1950 Author Organization [place] Address [address] [place] [address] Care Team Providers Name Role Phone Toña Jones MD Primary Care Provider Ingrid Santana RN Unavailable Unavailable Encounter Details Date Type Department Care Team Description 01/17/2013 Results Only LABORATORY RESULTS Barbara Bradley MD [address] [place], [place] [address] Social History Tobacco Use [...] II Single Antigen (01/17/2013) [facility] gist Method Time Signature [...] Phon e Number [facility] HLA LABORATORY Immunology/Histocompatabil [place], [place] [address] ity [facility] [address] [...]
--- OUTSIDE RECORDS SUMMARY | 2022-07-29 13:07 | XMS_ITS | Encounter Summary ---
:1950 Author Organization [place] Address [address] [place] [address] Care Team Providers Name Role Phone Toña Jones MD Primary Care Provider Ingrid Santana RN Unavailable Unavailable Reason for Visit (Routine) - Closed Specialty Diagnoses / Procedures Referred By Contact Refer red To Contact Cardiology Diagnoses NM [facility] Procedure Notes: UNSPECIFIED ESSENTIAL HYPERTENSION,PREOPERATIVE EXAMINATION, UNSPECIFIED, Zz [facility] Electrocard Procedures RADIOLOGY [address] [place] [address] Referral ID Status Reason Start Date Expiration Date Visits Requ ested Visits Authorized [id number] Closed 02/11/2012 02/10/2013 1 1 Encounter Details Date Type Department Care Team Description 02/15/2012 Hospital Encounter ZZ [facility] ELECTROCARD Barbara Bradley [address] [facility] [address] [address] [place], [place] [address] Social History Tobacco Use [...] tablet by mouth 0 02/18/2014 daily. B [id number] acid Take 1 capsule by mouth 0 [...] Test documented in this encounter Care Teams Vp Customer Service Relationship Specialty Start Date End Date Toña Jones MD PCP - General Nephrology 11/25/11 01/01/14 Ingrid Santana, RN Registered Nurse Transplant 02/10/12 documented as of this encounter
--- OUTSIDE RECORDS SUMMARY | 2022-07-29 13:07 | XMS_ITS | Encounter Summary ---
:1950 Author Organization [place] Address [facility] [place] [address] Care Team Providers Name Role Phone Toña [...] HLA Lukasz Class II Single Antigen (04/16/2013) [facility] gist Method Time Signature SA2 Test [...] Phon e Number [facility] HLA LABORATORY Immunology/Histocompatabil [place], [place] [address] ity [facility] [address] Building, Room 3-580 HISTOTRAC documented in this encounter Visit Diagnoses Not on filedocumented in this encounter Care Teams Pcas Relationship Specialty Start Date End Date Toña Jones MD PCP - General Nephrology 11/25/11 01/01/14 Ingrid Santana, RN Registered Nurse Transplant 02/10/12 documented as of this encounter
--- OUTSIDE RECORDS SUMMARY | 2022-07-29 13:07 | XMS_ITS | Encounter Summary ---
:1950 Author Organization [place] Address [address] [place] [address] Care Team Providers Name Role Phone Toña Jones MD Primary Care Provider Ingrid Santana RN Unavailable Unavailable Encounter Details Date Type Department Care Team Description 04/13/2012 Results Only LABORATORY RESULTS Mingo Dangelo MD [address] [facility] [address] [place] [address] (Wo rk) Social History Tobacco [...] HLA Lukasz Class II Single Antigen (04/13/2012) [facility] gist Method Time Signature SA2 [...] Phon e Number [facility] HLA LABORATORY Immunology/Histocompatabil [place], [place] [address] [facility] [address], Room 3-580 HISTOTRAC documented in this encounter Visit Diagnoses Not on filedocumented in this encounter Care Teams Photo Mask Inspector Relationship Specialty Start Date End Date Toña Jones MD PCP - General Nephrology 11/25/11 01/01/14 Ingrid Santana, RN Registered Nurse Transplant 02/10/12 documented as of this encounter
--- OUTSIDE RECORDS SUMMARY | 2022-07-29 13:07 | XMS_ITS | Encounter Summary ---
:1950 Author Organization [place] Address [facility]0 [facility] [place] [address] Care Team Providers Name Role Phone Toña [...] - HIM SCAN - 09/25/2012 8:26 AM PROOF TECHNICIAN HELPER ARCHIVE documented in this encounter Results LAB RESULT - HIM SCAN - ARCHIVE (09/25/2012 8:26 AM PROOF TECHNICIAN HELPER) Specimen (Source) Anatomical Location Collection Method / Collectio n Time Received Time / Laterality Volume Narrative This result has an attachment that is no t available. Marcela Cordero MD LAB - BLOOD ORDERABLES documented in this encounter Visit Diagnoses Not on filedocumented in this encounter Care Teams Healthcare Technician Relationship Specialty Start Date End Date Toña Jones MD PCP - General Nephrology 11/25/11 01/01/14 Momo Forbes PCP - General Family Practice 01/02/[address] [place] [address] Ingrid Santana, RN Registered Nurse Transplant 02/10/12 documented as of this encounter
--- OUTSIDE RECORDS SUMMARY | 2022-07-29 13:07 | XMS_ITS | Encounter Summary ---
:1950 Author Organization [place] Address [address] [place] [address] Care Team Providers Name Role Phone Toña Jones MD Primary Care Provider Ingrid Santana RN Unavailable Unavailable Encounter Details Date Type Department Care Team Description 04/13/2012 Results Only LABORATORY RESULTS Mingo Dangelo MD [address] [facility] [address] [place] [address] (Wo rk) Social History Tobacco [...] HLA Lukasz Class I Single Antigen (04/13/2012) [facility] gist Method Time Signature SA1 [...] Phon e Number [facility] HLA LABORATORY Immunology/Histocompatabil [place], [place] [address] ity [facility] [address] Building, Room [address]-580 HISTOTRAC documented in this encounter Visit Diagnoses Not on filedocumented in this encounter Care Teams Import Customer Service Manager Relationship Specialty Start Date End Date Toña Jones MD PCP - General Nephrology 11/25/11 01/01/14 Ingrid Santana, RN Registered Nurse Transplant 02/10/12 documented as of this encounter
--- OUTSIDE RECORDS SUMMARY | 2022-07-29 13:07 | XMS_ITS | Encounter Summary ---
:1950 Author Organization [place] Address [facility] [place] [address] Care Team Providers Name Role Phone Toña [...] HLA Lukasz Class I Single Antigen (04/16/2013) [facility] gist Method Time Signature SA1 [...] Phon e Number [facility] HLA LABORATORY Immunology/Histocompatabil [place], [place] [address] ity [facility] [address], Room [address]-580 HISTOTRAC documented in this encounter Visit Diagnoses Not on filedocumented in this encounter Care Teams Radiologic Technology Teacher Relationship Specialty Start Date End Date Toña Jones MD PCP - General Nephrology 11/25/11 01/01/14 Ingrid Santana, RN Registered Nurse Transplant 02/10/12 documented as of this encounter
--- OUTSIDE RECORDS SUMMARY | 2022-07-29 13:07 | XMS_ITS | Encounter Summary ---
:1950 Author Organization [place] Address [address] [place] [address] Care Team Providers Name Role Phone Toña Jones MD Primary Care Provider Ingrid Santana RN Unavailable Unavailable Encounter Details Date Type Department Care Team Description 11/05/2013 Results Only LABORATORY RESULTS Barbara Bradley MD [address] [place], [place] [address] Social History Tobacco Use [...] I Single Antigen (11/05/2013 7:20 AM CDT) [facility] gist Method Time Signature SA1 Test [...] Immunology/Histocompatabil [place], [place] [address] ity [facility] [address] Building, Room [address]-580 HISTOTRAC documented in this encounter Visit Diagnoses Not on filedocumented in this encounter Care Teams Manufacturing Industrial Engineer Relationship Specialty Start Date End Date Toña Jones MD PCP - General Nephrology 11/25/11 01/01/14 Ingrid Santana, RN Registered Nurse Transplant 02/10/12 documented as of this encounter
--- OUTSIDE RECORDS SUMMARY | 2022-07-29 13:08 | XMS_ITS | Encounter Summary ---
:1950 Author Organization [place] Address [address] [place] [address] Care Team Providers Name Role Phone Toña Jones MD Primary Care Provider Reason for Visit Reason Onset Date Comments Pre Visit Planning - Done 02/07/2012 Consult prior to kidney transplant, needs EKG please. Encounter Details Date Type Department Care Team Description 02/07/2012 PRE VISIT [facility] Barbara Bradley Pre Visit Planning - Physicians Orestes Licona MD Done (Consult prior to [facility] [address] kidney transplant, [place] [address] needs EKG please.) 4th Floor, Clinic [address] [address] Social History Tobacco Use Types [...] filedocumented in this encounter Care Teams Teacher Visually Impaired Relationship Specialty Start Date End Date Toña Jones MD PCP - General Nephrology 11/25/11 01/01/14 documented as of this encounter
--- OUTSIDE RECORDS SUMMARY | 2022-07-29 13:08 | XMS_ITS | Encounter Summary ---
:1950 Author Organization [facility] Address [address] [place] [address] Care Team Providers Name Role Phone Toña Jones MD Primary Care Provider Encounter Details Date Type Department Care Team Description 02/08/2012 [facility] Jesus Gamboa MD Diabetes mellitus, type 2 (H ); Health/Nurse 2nd Floor, Clinic 2A Coordinator, [facility] Care End stage renal disease (H) Visit [address] [place] [id number] Social History Tobacco Use Types Packs/Day Years [...] Priority Associated Diagnoses Date/Ti me F2 prothrombin [id number] Mut Lab Routine Diabetes mellit us, type [...] Routine 02/08/2012 7:25 AM Diabetes melli tus, [id number] MUT ANAL CDT type 2 (H) End [...] by Quantiferon (02/08/2012 7:26 AM CDT) [facility] Method Time Signature M Tuberculosis Negative NEG [facility] Result [facility] M Tuberculosis 0.01 IU/mL [facility] Antigen Value [facility] Comment: This is a qualitative test. [...] - BLOOD ORDERABLES Performing Organization Address City/[facility] Phon e Number [address] LABS Antibody titer red cell (02/08/2012 7:26 AM CDT) [facility] Method [place] Signature Antibody Titer Anti B [facility] titer IgM: [place] 4 Ig [place] [facility] Specimen Anatomical Collection Method Collection Time Receive d Time (Source) Location / / Volume Laterality Blood specimen 02/08/2012 7:26 AM 012 7:31 (specimen) CDT AM CDT Darian Joshi MD LAB - BLOOD BANK TEST ORDER Performing Organization Address [facility] Phon e Number [address] LABS Prostate spec antigen screen (02/08/2012 7:25 AM CDT) athologist Signature PSA 0.44 0 - 4 ug/L [facility] Comment: PSA results are about [...] Phon e Number [facility] [address] LABS Hemoglobin A1c (02/08/2012 7:25 AM CDT) athologist Signature Hemoglobin A1C 5.3 4.3 - 6.0 [facility] LABS Specimen Anatomical Collection Method Collection Time Receive d Time (Source) Location / / Volume Laterality Blood specimen 02/08/2012 7:25 AM 012 7:30 (specimen) CDT AM CDT Darian Joshi MD LAB - BLOOD ORDERABLES Performing Organization Address City/State/ZIP Code Phon e Number [facility] [address] LABS C-peptide (02/08/2012 7:25 AM CDT) athologist Signature C Peptide 5.3 0.9 - 6.9 [facility] ng/mL [place] [facility] Specimen Anatomical Collection Method Collection Time Receive d Time (Source) Location / / Volume Laterality Blood specimen 02/08/2012 7:25 AM 012 7:30 (specimen) CDT AM CDT Darian Joshi MD LAB - BLOOD ORDERABLES Performing Organization Address City/[facility]/ZIP Code Phon e Number [address] LABS Cardiolipin antibody IgG and IgM (02/08/2012 7:25 AM CDT) [facility] gist Method Time Signature Cardiolipin IgG <15.0 0 - 15.0 [facility] Shaye Interpretation: ??Negative GPL UNI VERSITY [...] Phon e Number [facility] [address] [place] [address] [place] [facility] (ABNORMAL) Comprehensive metabolic panel (02/08/2012 7:25 AM CDT) [facility] gist Method Time Signature Sodium 143 133 - 144 [facility] mmol/L [facility] Potassium 4.4 3.4 - 5.3 [facility] mmol/L [facility] Chloride 106 94 - 109 [facility] mmol/L [facility] Carbon Dioxide 24 20 - 32 [facility] mmol/L [facility] Anion Gap 13 6 - 17 [facility] mmol/L [facility] Glucose 126 (H) 60 - 99 [facility] mg/dL [facility] Urea Nitrogen 32 (H) 7 - 30 [facility] mg/dL [facility] Creatinine 5.46 (H) 0.66 - [facility] 1.25 UNIVERSITY mg/dL CAMPUS LABS GFR Estimate 11 (L) >60 [facility] mL/min/1. [address] LABS GFR Estimate If 13 (L) >60 [facility] Black mL/min/1. [address] LABS Calcium 8.5 8.5 - [facility] 10.4 UNIVERSITY mg/dL CAMPUS LABS Bilirubin Total 0.8 0.2 - 1.3 [facility] mg/dL [facility] Albumin 3.8 3.3 - 4.9 [facility] g/dL [facility] Protein Total 6.8 6.8 - 8.8 [facility] g/dL [facility] Alkaline 92 40 - 150 [facility] Phosphatase U/L [facility]S ALT 13 0 - 70 [facility] U/L [facility] AST 18 0 - 45 [facility] U/L [facility] Specimen Anatomical Collection Method Collection Time Receive d Time (Source) Location / / Volume Laterality Blood specimen 02/08/2012 7:25 AM 012 7:30 (specimen) CDT AM CDT Darian Joshi MD LAB - BLOOD ORDERABLES Performing Organization Address City/[facility]/ZIP Code Phon e Number [facility] [address] [place] [address] [facility] LABS Lipid Profile (02/08/2012 7:25 AM CDT) P athologist Signature Cholesterol 134 0 - 200 [facility] mg/dL CAMPUS LABS Comment: LDL Cholesterol is the primary guide to therapy. The NCEP recommends further evaluation of: patients with cholesterol greater than 200 mg/dL if additional risk facto rs are present, cholesterol greater than 240 mg/dL, triglycerides greater than 1 50 mg/dL, or HDL less than 40 mg/dL. Triglycerides 74 0 - 150 mg/dL [facility] LABS HDL Cholesterol 42 40 - 110 mg/dL [facility] LABS LDL Cholesterol Calculated 77 0 - 129 mg/dL [facility] Comment: LDL Cholesterol is the primary guide to therapy: LDL-cholesterol goal in high risk patients is <100 mg/dL and in very high risk patients is <70 mg/dL. VLDL-Cholesterol 15 0 - 30 mg/dL [facility] LABS Cholesterol/HDL Ratio 3.2 0.0 - 5.0 [facility] Specimen Anatomical Collection Method Collection Time Receive d Time (Source) Location / / Volume Laterality Blood specimen 02/08/2012 7:25 AM 012 7:30 (specimen) CDT AM CDT Darian Joshi MD LAB - BLOOD ORDERABLES Performing Organization Address City/[facility]/ZIP Code Phon e Number [facility] [address] [place] [address] [facility] LABS ABO/Rh type and screen (02/08/2012 7:25 AM CDT) Patholo gist Method Time Signature ABO A [facility] RH(D) Pos [facility] Antibody Neg [facility] Screen [facility] Specimen 02/11/2012 [facility] Expires [facility] Specimen Anatomical Collection Method Collection Time Receive d Time (Source) Location / / Volume Laterality Blood specimen 02/08/2012 7:25 AM 012 7:30 (specimen) CDT AM CDT Darian Joshi MD LAB - BLOOD BANK TEST ORDER Performing Organization Address City/State/ZIP Code Phon e Number [facility] [address] [place] [address] [facility] LABS Varicella zoster antibody IgG (02/08/2012 7:25 AM CDT) Patholo gist Method Time Signature Varicella 1023.00 [facility] Zoster IgG [facility] Immune Status CAMPUS LABS Ratio Vari Zoster Positive, [facility] IgG Interp suggests [place] prev. CAMPUS LABS exposure and probable immunity Specimen Anatomical Collection Method Collection Time Receive d Time (Source) Location / / Volume Laterality Blood specimen 02/08/2012 7:25 AM 012 7:30 (specimen) CDT AM CDT Darian Joshi MD LAB - BLOOD ORDERABLES Performing Organization Address City/State/ZIP Code Phon e Number [facility] [address] [place], [place] [id number] [place] [address] LABS Anti treponema EIA (02/08/2012 7:25 AM CDT) Analysis Performed At Patho logist Time Signature Treponema Negative NEG [facility] Antibody [place] [facility] Specimen Anatomical Collection Method Collection Time Receive d Time (Source) Location / / Volume Laterality Blood specimen 02/08/2012 7:25 AM 012 7:30 (specimen) CDT AM CDT Darian Joshi MD LAB - BLOOD ORDERABLES Performing Organization Address City/State/ZIP Code Phon e Number [facility] [address] [place], [place] [id number] [place] [address] LABS HIV 1 and 2 Antibody (02/08/2012 7:25 AM CDT) Analysis Performed At Patho logist Time Signature HIV 1&2 Negative NEG [facility] Antibody [facility] Specimen Anatomical Collection Method Collection Time Receive d Time (Source) Location / / Volume Laterality Blood specimen 02/08/2012 7:25 AM 012 7:30 (specimen) CDT AM CDT Darian Joshi MD LAB - BLOOD ORDERABLES Performing Organization Address City/State/ZIP Code Phon e Number [facility] [address] [place], [place] [id number] [place] [address] LABS Hepatitis C antibody (02/08/2012 7:25 AM CDT) Analysis Performed At Patho logist Time Signature Hepatitis C Negative NEG [facility] Antibody [facility] Specimen Anatomical Collection Method Collection Time Receive d Time (Source) Location / / Volume Laterality Blood specimen 02/08/2012 7:25 AM 012 7:30 (specimen) CDT AM CDT Darian Joshi MD LAB - BLOOD ORDERABLES Performing Organization Address City/[facility]/ZIP Code Phon e Number [address] LABS Hepatitis B surface antigen (02/08/2012 7:25 AM CDT) Analysis Performed At Patho logist Time Signature Hep B Surface Negative NEG [facility] Agn [facility] Specimen Anatomical Collection Method Collection Time Receive d Time (Source) Location / / Volume Laterality Blood specimen 02/08/2012 7:25 AM 012 7:30 (specimen) CDT AM CDT Darian Joshi MD LAB - BLOOD ORDERABLES Performing Organization Address City/[facility]/ZIP Code Phon e Number [address] LABS Hepatitis B surface antibody (02/08/2012 7:25 AM CDT) P athologist Signature Hep B Surface 135.0 [facility] LABS Comment: Positive, Patient is considered [...] - BLOOD ORDERABLES Performing Organization Address City/[facility]/ZIP Code Phon e Number [address] LABS Hepatitis B core antibody (02/08/2012 7:25 AM CDT) Analysis Performed At Patho logist Time Signature Hepatitis B Negative NEG [facility] LABS Specimen Anatomical Collection Method Collection Time Receive d Time (Source) Location / / Volume Laterality Blood specimen 02/08/2012 7:25 AM 012 7:30 (specimen) CDT AM CDT Darian Joshi MD LAB - BLOOD ORDERABLES Performing Organization Address City/[facility]/ZIP Code Phon e Number [facility] [address] [place], [place] [phone] [place] [address] LABS EBV VCA IgG Antibody (02/08/2012 7:25 AM CDT) athologist Signature EBV VCA IgG 188.00 U/mL [facility] Antibody [place] [facility] Comment: Positive, suggests immunologic exposure. Specimen Anatomical Collection Method Collection Time Receive d Time (Source) Location / / Volume Laterality Blood specimen 02/08/2012 7:25 AM 012 7:30 (specimen) CDT AM CDT Darian Joshi MD LAB - BLOOD ORDERABLES Performing Organization Address City/[facility]/ZIP Code Phon e Number [address] [facility] LABS CMV IGG ANTIBODY (02/08/2012 7:25 AM CDT) athologist Signature CMV IgG 3.30 U/mL [facility] Antibody [place] [facility] Comment: Positive for anti-CMV IgG Specimen Anatomical Collection Method Collection Time Receive d Time (Source) Location / / Volume Laterality Blood specimen 02/08/2012 7:25 AM 012 7:30 (specimen) CDT AM CDT Darian Joshi MD LAB - BLOOD ORDERABLES Performing Organization Address City/[facility]/ZIP Code Phon e Number [address] [facility] LABS Immunology recipient: SOT HLA Workup (ABC,DR,DQ,PRA,Crossmatch) (02/08/2012 7:25 AM CDT) [facility] gist Method Time Signature Immunology SOT HLA WORKUP [facility] Test Name [facility] Immunology Specimen [facility] Result received - [facility] LABS report to follow upon completion. Specimen Anatomical Collection Method Collection Time Receive d Time (Source) Location / / Volume Laterality Blood specimen 02/08/2012 7:25 AM 012 7:30 (specimen) CDT AM CDT Darian Joshi MD LAB - IMMUNOLOGY ORDERABLES Performing Organization Address City/State/ZIP Code Phon e Number [address] [place] [address] [place] [facility] (ABNORMAL) CBC with platelets differential (02/08/2012 7:25 AM CDT) [facility] gist Method Time Signature WBC 6.3 4.0 - [facility] 11.0 [place] 10e9/L [place] [facility] RBC Count 3.97 (L) 4.4 - 5.9 [facility] 10e12/L [facility] Hemoglobin 12.0 (L) 13.3 - [facility] 17.7 g/dL [facility] Hematocrit 36.3 (L) 40.0 - [facility] 53.0 % [facility] MCV 91 78 - 100 [facility] fl [facility] MCH 30.2 26.5 - [facility] 33.0 pg [facility] MCHC 33.1 31.5 - [facility] 36.5 g/dL [facility] RDW 15.3 (H) 10.0 - [facility] 15.0 % [facility] Platelet Count 144 (L) 150 - 450 [facility] 10e9/L [facility] Diff Method Automated [facility] Method [facility] % Neutrophils 57.7 40 - 75 % [facility] % Lymphocytes 27.7 20 - 48 % [facility] % Monocytes 8.2 0 - 12 % [facility] % Eosinophils 6.1 (H) 0 - 6 % [facility] % Basophils 0.3 0 - 2 % [facility] % Immature 0.0 0 - 0.4 % [facility] Granulocytes [facility] Absolute 3.6 1.6 - 8.3 [facility] Neutrophil 10e9/L [facility] Absolute 1.7 0.8 - 5.3 [facility] Lymphocytes 10e9/L [facility] Absolute 0.5 0.0 - 1.3 [facility] Monocytes 10e9/L [facility] Absolute 0.4 0.0 - 0.7 [facility] Eosinophils 10e9/L [facility] Absolute 0.0 0.0 - 0.2 [facility] Basophils 10e9/L [facility] Abs Immature 0.0 0 - 0.03 [facility] Granulocytes 10e9/L [facility] Specimen Anatomical Collection Method Collection Time Receive d Time (Source) Location / / Volume Laterality Blood specimen 02/08/2012 7:25 AM 012 7:30 (specimen) CDT AM CDT Darian Joshi MD LAB - BLOOD ORDERABLES Performing Organization Address City/[facility]/ZIP Code Phon e Number [facility] [address] LABS Lupus panel (02/08/2012 7:25 AM CDT) Component Value Ref Test Analysis Performed At Patholo gist Range Method Time Signature Lupus Result Negative NEG [facility] (Note) [place] COMMENTS: [place] [facility] The INR is normal. APTT is normal. ??1:2 Mix is not indicated. DRVVT Screen is normal. Thrombin time is normal. NEGATIVE TEST; A LUPUS ANTICOAGULANT WAS NOT DETECTED IN THI S SPECIMEN WITHIN THE LIMITS OF THE TESTING REPERTOIRE. If the clinical picture is strongly suggestive of an antipho spholipid syndrome, recommend anticardiolipin and [id number] (IgG and IgM) antibody tests. Dee Duenas M.D. ??[phone] 02-09-2012. APTT'S: ?? Seconds Reagent = Stago [...] - BLOOD ORDERABLES Performing Organization Address City/[facility]/ZIP Code Phon e Number [facility] [address] LABS Thrombin time (02/08/2012 7:25 AM CDT) athologist Signature Thrombin Time 16.7 13.0 - [facility] 19.0 sec CAMPUS LABS Specimen Anatomical Collection Method Collection Time Receive d Time (Source) Location / / Volume Laterality Blood specimen 02/08/2012 7:25 AM 012 7:30 (specimen) CDT AM CDT Darian Joshi MD LAB - BLOOD ORDERABLES Performing Organization Address City/[facility]/ZIP Code Phon e Number [facility] [address] [place], [place] [id number] [place] [address] LABS Partial thromboplastin time (02/08/2012 7:25 AM CDT) P athologist Signature PTT 29 22 - 37 sec [facility] Specimen Anatomical Collection Method Collection Time Receive d Time (Source) Location / / Volume Laterality Blood specimen 02/08/2012 7:25 AM 012 7:30 (specimen) CDT AM CDT Darian Joshi MD LAB - BLOOD ORDERABLES Performing Organization Address City/[facility]/ZIP Code Phon e Number [address] LABS INR (02/08/2012 7:25 AM CDT) P athologist Signature INR 1.11 0.86 - 1.14 [facility] Specimen Anatomical Collection Method Collection Time Receive d Time (Source) Location / / Volume Laterality Blood specimen 02/08/2012 7:25 AM 012 7:30 (specimen) CDT AM CDT Darian Joshi MD LAB - BLOOD ORDERABLES Performing Organization Address City/State/ZIP Code Phon e Number [id number] [place] [address] LABS Factor 2 and 5 mutation analysis (02/08/2012 7:07 AM CDT) Component Value Ref Test Analysis Performed At [facility] gist Range Method Time Signature Copath Report Patient Name: ELINOR GUTHRIE MR#: [id number] Specimen #: [id number] Collected: 02/08/2012 07:07 Received: 02/08/2012 09:00 Reported: 02/11/2012 14:03 Ordering Phy(s): DARIAN JOSHI TEST(S) REQUESTED: A: Factor 5 Leiden and Factor 2 by PCR B: DNA Isolation, High purity extraction SPECIMEN DESCRIPTION: Blood METHODOLOGY: ?? The regions of genomic DNA containing the G1 691A Factor 5 gene mutation (Factor V Leiden) and the Factor 2(Prothrombin [id number]) gene mutation were simultaneously amplified using the InSeT Systemse Transparency Softwaree chain reaction. ??The amplified products were digested with restri ction endonuclease TaqI and products were analyzed by gel electrop horesis. RESULTS: FACTOR 5-LEIDEN RESULTS: Mutation analyzed: ? 1691G>A Factor 5 Mutation Interpretation: ?ABSENT Factor 5 Mutation genotype: ?G/G FACTOR 2/PROTHROMBIN RESULTS: Mutation analyzed: ? 41712S>A Factor 2 Mutation Interpretation: ?ABSENT Factor 2 Mutation genotype: ?G/G INTERPRETATION: The patient is negative for the Factor 5 mutation and negati ve for the Factor 2 mutation. This test was developed and its performance determined by kj de [facility] ??Molecular Diagnostic Laboratory. It [...] By: Liliya Stone MD TESTING LAB LOCATION: [place] [id number] [facility] [address] [place] [id number] COLLECTION SITE: Client: ??[facility] Location: ??UUTXO (B) Specimen Anatomical Collection Method Collection Time Receive d Time (Source) Location / / Volume Laterality 02/08/2012 7:07 AM 2 9:00 CDT AM CDT Provider Unknown LAB - GENOMICS Performing Organization Address City/State/ZIP Code Phon e Number [facility] (ABNORMAL) Routine UA with microscopic (02/08/2012 7:06 AM CDT) Component Value Ref Test Analysis Performed At [facility] gist Range Method Time Signature Color Urine Light Yellow [facility] [place] [facility] Appearance Urine Clear [facility] Glucose Urine 300 (A) NEG [facility] mg/dL [facility] Bilirubin Urine Negative NEG [facility] Ketones Urine Negative NEG [facility] mg/dL [facility] Specific [place] 1.010 1.003 - [facility] Urine 1.035 [facility] Blood Urine Negative NEG [facility] pH Urine 7.5 (H) 5.0 - [facility] 7.0 pH UNIVERSITY CAMPUS LABS Protein Albumin 300 (A) NEG [facility] Urine mg/dL UNIVERSITY CAMPUS LABS Urobilinogen Normal 0.0 - [facility] mg/dL 2.0 UN[facility]ITY mg/dL CAMPUS LABS Nitrite Urine Negative NEG [facility]ITY [facility]S Leukocyte Negative NEG [facility] Esterase Urine [facility]ITY [place] [facility] Source Unspecified [facility] Urine UNIVERSITY [facility]AMP[facility] LABS WBC Urine 1 0 - 2 [facility] /HPF [facility] [place] [facility] RBC Urine <1 0 - 2 [facility] /HPF [facility] Hyaline Casts 3 (H) 0 - 2 [facility] /LPF [facility] [place] [facility] Specimen Anatomical Collection Method Collection Time Receive d Time (Source) Location / / Volume Laterality Urine specimen 02/08/2012 7:06 AM 012 7:08 (specimen) CDT AM CDT Darian Joshi MD LAB - URINE ORDERABLES Performing Organization Address City/State/ZIP Code Phon e Number [facility] [address] [facility] documented in this encounter Visit Diagnoses Diagnosis Diabetes mellitus, type 2 (H) Type II or unspecified type diabetes aung litus without mention of complication, not stated as uncontrolled End stage renal disease (H) End stage renal disease documented in this encounter Care Teams Paedodontist Relationship Specialty Start Date End Date Toña Jones MD PCP - General Nephrology 11/25/11 01/01/14 documented as of this encounter
--- OUTSIDE RECORDS SUMMARY | 2022-07-29 13:08 | XMS_ITS | Encounter Summary ---
:1950 Author Organization [facility] Address [address] [place] [address]. [place] [address] Care Team Providers Name Role Phone Toña Jones MD Primary Care Provider Ingrid Santana RN Unavailable Unavailable Momo Forbes Primary Care Provider Encounter Details Date Type Department Care Team Description 01/06/2011 Historic Results [facility] Provider, MD Marcela Social History [...] filedocumented in this encounter Care Teams Supervisor Waterworks Relationship Specialty Start Date End Date Toña Jones MD PCP - General Nephrology 11/25/11 01/01/14 Momo Forbes PCP - General Family Practice 01/02/[address] [address] Siers, Ingrid A, RN Registered Nurse Transplant 02/10/12 documented as of this encounter
--- OUTSIDE RECORDS SUMMARY | 2022-07-29 13:08 | XMS_ITS | Encounter Summary ---
:1950 Author Organization [facility] Address [address] [place] [address] Care Team Providers Name Role Phone Toña Jones MD Primary Care Provider Ingrid Santana RN Unavailable Unavailable Encounter Details Date Type Department Care Team Description 02/08/2012 Results Only LABORATORY RESULTS Jeff Joshi MD [address] [place] [address] (Wo rk) Social History Tobacco [...] I Single Antigen (02/08/2012 7:07 AM CDT) [facility] gist Method Time [...] Phon e Number [facility]ORAT[facility] Immunology/Histocompatabil [place], [place] [address] [facility] [address], Room 3-580 HISTOTRAC documented in this encounter Visit Diagnoses Not on filedocumented in this encounter Care Teams Newspaper Writer Relationship Specialty Start Date End Date Toña Jones MD PCP - General Nephrology 11/25/11 01/01/14 Ingrid Santana, RN Registered Nurse Transplant 02/10/12 documented as of this encounter
--- OUTSIDE RECORDS SUMMARY | 2022-07-29 13:08 | XMS_ITS | Encounter Summary ---
:1950 Author Organization [place] Address [address] [place] [address]. [place] [address] Care Team Providers Name Role Phone Toña Jones MD Primary Care Provider Ingrid Santana RN Unavailable Unavailable Momo Forbes Primary Care Provider Encounter Details Date Type Department Care Team Description 01/20/2012 Historic Results [facility] AT [...] on filedocumented in this encounter Care Teams Coach Cleaner Relationship Specialty Start Date End Date Toña Jones MD PCP - General Nephrology 11/25/11 01/01/14 Momo Forbes PCP - General Family Practice 01/02/[address] [address] Siers, Ingrid A, RN Registered Nurse Transplant 02/10/12 documented as of this encounter
--- OUTSIDE RECORDS SUMMARY | 2022-07-29 13:08 | XMS_ITS | Encounter Summary ---
:1950 Author Organization [place] Address [address] [place] [address]. [place] [address] Care Team Providers Name Role Phone Toña Jones MD Primary Care Provider Ingrid Santana RN Unavailable Unavailable Momo Forbes Primary Care Provider Encounter Details Date Type Department Care Team Description 05/25/2010 Historic Results [facility] Provider, [...] on filedocumented in this encounter Care Teams Thermal Spray Operator Relationship Specialty Start Date End Date Toña Jones MD PCP - General Nephrology 11/25/11 01/01/14 Momo Forbes PCP - General Family Practice 01/02/[address] [address] Siers, Ingrid A, RN Registered Nurse Transplant 02/10/12 documented as of this encounter
--- OUTSIDE RECORDS SUMMARY | 2022-07-29 13:08 | XMS_ITS | Encounter Summary ---
:1950 Author Organization [place] Address [address] [place] [address] Care Team Providers Name Role Phone Toña [...] filedocumented in this encounter Care Teams Wood Die Maker Relationship Specialty Start Date End Date Toña Jones MD PCP - General Nephrology 11/25/11 01/01/14 Momo Forbes PCP - General Family Practice 01/02/14 [facility] [address] [place] [address] Ingrid Santana, RN Registered Nurse Transplant 02/10/12 documented as of this encounter
--- OUTSIDE RECORDS SUMMARY | 2022-07-29 13:08 | XMS_ITS | Encounter Summary ---
:1950 Author Organization [place] Address [address] [facility] [address] Care Team Providers Name Role Phone Toña Jones MD Primary Care Provider Blayne Santana RN Unavailable Unavailable Reason for Visit Reason Comments Transplant Evaluation Encounter Details Date Type Department Care Team Description 02/08/2012 Office Visit Transplant Surgery Jesus Cardenas, DM (di abetes mellitus), type 2 (H); Clinic End stage renal disease (H) 2nd Floor, Clinic [address] [phone] Social History Tobacco Use Types Packs/Day Years [...] from the original note were not included. 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 Smoking status: [...] Take 1 tablet by mouth daily. B aloasmd-Y-svboh acid (NEPHROCAPS) 1 MG capsule Take 1 [...] Test 02/08/12 0725 INR 1.11 F2MAR -- [id number] -- Lipid Profile: Cholesterol Date Value Range [...] 09, 2012 3:21 PM Pre Abdominal Organ Cosmetology Professor Evaluation Note: present: Dr. Jesus Cardenas Attendees: self Type of transplant: kidney Required Topic(s) Discussed: Evaluation notification document, SRTR data, Multiple wait list brochure, VIDEO PRODUCTION ENGINEER, Evaluation/approval process, Selection committee process, Wait list [...] spent with patient: 15 minutes -- Nurse Cosmetology Professor Pager [phone] BLAYNE SANTANA -- Nurse Cosmetology Professor Pager [phone] >> Lena Sánchez RN santino Feb 08, [...] disease documented in this encounter Care Teams County Surveyor Relationship Specialty Start Date End Date Toña Jones MD PCP - General Nephrology 11/25/11 01/01/14 Blayne Santana, RN Registered Nurse Transplant 02/10/12 documented as of this encounter
--- OUTSIDE RECORDS SUMMARY | 2022-07-29 13:08 | XMS_ITS | Encounter Summary ---
:1950 Author Organization [place] Address [address] [place] [address] Care Team Providers Name Role Phone Toña Jones MD Primary Care Provider Ingrid Santana RN Unavailable Unavailable Encounter Details Date Type Department Care Team Description 12/07/2011 Orders Only Nephrology Chucho Joshi MD Dialysis patient (H) 2nd Floor, Clinic 2A [address] [place] (Primary Dx) Tommy Ruiz[address] [place] [address] [place], [place] [phone] (Wo rk) [phone] [phone] Social History Tobacco Use Types Packs/Day Years Used Date Smoking Tobacco: Never Assessed Sex Assigned at Date Recorded Not on file documented as of this encounter Plan of Treatment Not on filedocumented as of this encounter Visit Diagnoses Diagnosis Dialysis patient (H) - Primary Renal dialysis status documented in this encounter Care Teams Museum Service Scheduler Relationship Specialty Start Date End Date Toña Jones MD PCP - General Nephrology 11/25/11 01/01/14 Ingrid Santana RN Registered Nurse Transplant 02/10/12 documented as of this encounter
--- OUTSIDE RECORDS SUMMARY | 2022-07-29 13:08 | XMS_ITS | Encounter Summary ---
:1950 Author Organization [place] Address [address] [place] [address] Care Team Providers Name Role Phone Toña Jones MD Primary Care Provider Ingrid Santana RN Unavailable Unavailable Encounter Details Date Type Department Care Team Description 02/08/2012 Results Only LABORATORY RESULTS Jeff Joshi MD [address] [facility] [address] [place] [address] (Wo rk) Social History Tobacco [...] Phon e Number [facility] LABORATORY Immunology/Histocompatabil [place], [place] [address] ity ealth [facility] [address] [facility] [address] Building, Room 3-580 HISTOTRAC documented in this encounter Visit Diagnoses Not on filedocumented in this encounter Care Teams Corporate Planner Relationship Specialty Start Date End Date Toña Jones MD PCP - General Nephrology 11/25/11 01/01/14 Ingrid Santana, RN Registered Nurse Transplant 02/10/12 documented as of this encounter
--- OUTSIDE RECORDS SUMMARY | 2022-07-29 13:08 | XMS_ITS | Encounter Summary ---
:1950 Author Organization [place] Address [address] [facility] [place] [address] Care Team Providers Name Role Phone Toña [...] on filedocumented in this encounter Care Teams Hat Trimmer Relationship Specialty Start Date End Date Toña Jones MD PCP - General Nephrology 11/25/11 01/01/14 Momo Forbes PCP - General Family Practice 01/02/14 [facility] [address] [place] [address] Ingrid Santana, RN Registered Nurse Transplant 02/10/12 documented as of this encounter
--- OUTSIDE RECORDS SUMMARY | 2022-07-29 13:08 | XMS_ITS | Encounter Summary ---
:1950 Author Organization [place] Address [facility] [place] [address] Care Team Providers Name Role Phone Toña Jones MD Primary Care Provider Reason for Referral - Closed Specialty Diagnoses / Procedures Referred By Contact Refer red To Contact Diagnoses Diabetes mellitus, type 2 (H) End stage renal disease (H) [facility] 2nd Floor, [place] [phone] Referral ID Status Reason Start Date Expiration Date Visits Requ ested Visits Authorized [id number] Closed 12/02/2011 05/30/2012 1 1 - Closed Specialty Diagnoses / Procedures Referred By Contact Refer red To Contact Diagnoses Diabetes mellitus, type 2 (H) End stage renal disease (H) [facility] Floor, [place] [phone] Referral ID Status Reason Start Date Expiration Date Visits Requ ested Visits Authorized [id number] Closed 12/02/2011 05/30/2012 1 1 - Closed Specialty Diagnoses / Procedures Referred By Contact Refer red To Contact Diagnoses Diabetes mellitus, type 2 (H) End stage renal disease (H) [facility] 2nd Floor, [place] [phone] Referral ID Status Reason Start Date Expiration Date Visits Requ ested Visits Authorized [id number] Closed 12/02/2011 05/30/2012 1 1 - Closed Specialty Diagnoses / Procedures Referred By Contact Refer red To Contact Diagnoses Diabetes mellitus, type 2 (H) End stage renal disease (H) [facility] 2nd Floor, Clinic 2A [place] [phone] Referral ID Status Reason Start Date Expiration Date Visits Requ ested Visits Authorized [id number] Closed 12/02/2011 05/30/2012 1 1 - Closed Specialty Diagnoses / Procedures Referred By Contact Refer red To Contact Diagnoses Diabetes mellitus, type 2 (H) End stage renal disease (H) [facility] Floor, [place] [phone] Referral ID Status Reason Start Date Expiration Date Visits Requ ested Visits Authorized [id number] Closed 12/02/2011 05/30/2012 1 1 - Closed Specialty Diagnoses / Procedures Referred By Contact Refer red To Contact Diagnoses Diabetes mellitus, type 2 (H) End stage renal disease (H) [facility] Floor, [place] [phone] Referral ID Status Reason Start Date Expiration Date Visits Requ ested Visits Authorized [id number] Closed 12/02/2011 05/30/2012 1 1 - Closed Specialty Diagnoses / Procedures Referred By Contact Refer red To Contact Diagnoses Diabetes mellitus, type 2 (H) End stage renal disease (H) [facility] 2nd Floor, Clinic [address]A [address] [phone] Referral ID Status Reason Start Date Expiration Date Visits Requ ested Visits Authorized [id number] Closed 12/02/2011 05/30/2012 1 1 - Closed Specialty Diagnoses / Procedures Referred By Contact Refer red To Contact Diagnoses Diabetes mellitus, type 2 (H) End stage renal disease (H) [facility] 2nd Floor, Clinic 2A [address] [phone] Referral ID Status Reason Start Date Expiration Date Visits Requ ested Visits Authorized [id number] Closed 12/02/2011 05/30/2012 1 1 - Closed Specialty Diagnoses / Procedures Referred By Contact Refer red To Contact Diagnoses Diabetes mellitus, type 2 (H) End stage renal disease (H) [facility] 2nd Floor, Clinic 2A [address] [phone] Referral ID Status Reason Start Date Expiration Date Visits Requ ested Visits Authorized [id number] Closed 12/02/2011 05/30/2012 1 1 Encounter Details Date Type Department Care Team Description 12/02/2011 Orders Only Nephrology Ingrid Santana, Diabetes mellitus, type 2 (H ); 2nd Floor, Clinic 2A RN End stage renal disease (H) [address] [phone] Social History Tobacco Use [...] 2 (H) End stage renal disease (H) ACCOUNTING SYSTEM EXPERT Referral Routine Diabetes mellitus, Ordered: 12/02/2011 REFERRAL type 2 (H) End stage renal disease (H) NEPHROLOGY ADULT REFERRAL Referral Routine Diabetes mellit us, Ordered: 12/02/2011 type 2 (H) End stage renal disease (H) GENERAL SURG ADULT Referral Routine Diabetes mellitus, Ord ered: 12/02/2011 REFERRAL type 2 (H) End stage renal disease (H) AUTOMATION ARCHITECT REFERRAL Referral Routine Diabetes mellitu s, Ordered: [...] disease documented in this encounter Care Teams Advice Line Rn Relationship Specialty Start Date End Date Toña Jones MD PCP - General Nephrology 11/25/11 01/01/14 documented as of this encounter
--- OUTSIDE RECORDS SUMMARY | 2022-07-29 13:08 | XMS_ITS | Encounter Summary ---
:1950 Author Organization [place] Address [address] [place] [address] Care Team Providers Name Role Phone Toña Jones MD Primary Care Provider Ingrid Santana RN Unavailable Unavailable Encounter Details Date Type Department Care Team Description 02/08/2012 Results Only LABORATORY RESULTS Jeff Joshi MD [address] [facility] [address] [place] [address] (Wo rk) Social History Tobacco [...] II Single Antigen (02/08/2012 7:07 AM CDT) [facility] gist Method Time Signature SA2 Test Single [...] Phon e Number [facility] LABORAT[facility] Immunology/Histocompatabil [place], [place] [address] [facility] [address] Building, Room 3-580 HISTOTRAC documented in this encounter Visit Diagnoses Not on filedocumented in this encounter Care Teams Drill Instructor Relationship Specialty Start Date End Date Toña Jones MD PCP - General Nephrology 11/25/11 01/01/14 Ingrid Santana, RN Registered Nurse Transplant 02/10/12 documented as of this encounter
--- OUTSIDE RECORDS SUMMARY | 2022-07-29 13:08 | XMS_ITS | Encounter Summary ---
:1950 Author Organization [place] Address [address] [place] [address] Care Team Providers Name Role Phone Toña Jones MD Primary Care Provider Reason for Visit (Routine) - Closed Specialty Diagnoses / Procedures Referred By Contact Refer red To Contact Cardiology Diagnoses ECHO CLINIC COMPLETE ADULT Procedure Notes: DIABETES MELLITUS, TYPE 2,END STAGE RENAL DISEASE,Transplant eval,Performing Location?->[facility] Echocardiography Procedures RADIOLOGY [address] [place] [address] Phone: Referral ID Status Reason Start Date Expiration Date Visits Requ ested Visits Authorized [id number] Closed 01/21/2012 01/20/2013 1 1 Encounter Details Date Type Department Care Team Description 02/08/2012 [facility] Hass an, MD [address] [facility] [address] [place] [address] Diabetes mellitus, type 2 (H); Echocardiography Rajat German MD [address] [facility] [address] [place] [address] End stage renal disease (H) [address] [place] [address] Social History Tobacco Use Types [...] tablet by mouth 0 02/18/2014 daily. B gbnqryg-J-ctcpj acid Take 1 capsule by mouth 0 [...] Clinic (PWB) (02/08/2012 1:13 PM CDT) [facility] Method Time Signature XCELERA RADIOLOGY [...] disease documented in this encounter Care Teams Certified Prosthetist Vice President Relationship Specialty Start Date End Date Toña Jones MD PCP - General Nephrology 11/25/11 01/01/14 documented as of this encounter
--- OUTSIDE RECORDS SUMMARY | 2022-07-29 13:08 | XMS_ITS | Encounter Summary ---
:1950 Author Organization [place] Address [address] [facility] [place] [address] Care Team Providers Name Role Phone Toña Jones MD Primary Care Provider Ingrid Santana RN Unavailable Unavailable Reason for Visit Reason Comments Heart Problem Consult prior to kidney proctor splant, needs EKG please. Encounter Details Date Type Department Care Team Description 02/10/2012 Office Visit Justice Barbara Bradley Unspecified es sential hypertension; [facility] [place] Pre-operative clearance Heart [address] [place] [address] Building [phone] 4th Floor, Clinic 4B (Work) [address] [address] Social History Tobacco Use [...] Stay Well and Call Maribel Nicole RN [phone] with any questions or concerns. You are scheduled for an Adenosine Stress Test 02/15/2012: Please check into the [facility] Waiting Room at 12:15pm for this test. [...] and you need to reschedule, please call [phone]. January 2012Tuesday 1 2 3 4 5 6 7 8 9 10 11 12 13 14 15 16 17 18 19 [facility] NEW 6:30 AM (30 min.) Evaluation, [facility] The Transplant [facility] FULL PULMONARY FUNCTION 8:00 AM (60 min.) 2, [email or web address] [place] Pulmonary Function Laboratory RADIOLOGY 8:05 AM (10 min.) Uicxr2 [facility] Diagnostic Imaging [facility] PREP KIDNEY/PANCREAS [place] 9:00 AM (120 min.) Angela Lopez RN [facility], Patient Learning Center [facility] TRANSPLANT CLASS KIDNEY 9:00 AM (90 min.) Class, [facility] [[email or web address] Transplant The Transplant Center [facility] DIRECTOR INDUSTRIAL NURSING 11:00 AM (30 min.) Coordinator, [facility] Care [facility] Transplant [facility] PRE-TX KIDNEY EVAL 11:00 AM (30 min.) Jesus Thomas MD Transplant Surgery LAB 11:30 AM (15 min.) Pwb, Op Lab [facility], Lab RADIOLOGY 1:30 PM (55 min.) Uecvc1 [facility], Echocardiography 20 21 [facility] RETURN 7:00 AM (15 min.) Evaluation, [facility] The Transplant Center RADIOLOGY 7:00 AM (60 min.) Uicusr2 [facility] Diagnostic Imaging CONSULT HOD 8:00 AM (60 min.) Martina Mcneill RD [facility], [place], Nutrition Services [facility] TX SOCIAL WORK 9:00 AM (60 min.) 2, [facility] [[email or web address]] Tx Consult Room The Transplant Center [facility] PRE-TX KIDNEY EVAL 10:00 AM (60 min.) Joseph Quintana MD Nephrology [facility] PANCREAS-KIDNEY TX W/U 11:30 AM (30 min.) Barbara Bradley MD [facility] Physicians Heart 22 23 24 25 26 RADIOLOGY 12:30 PM (15 min.) Uninj [facility], Nuclear Medicine RADIOLOGY 1:15 PM (20 min.) Unr1 [facility], Nuclear Medicine RADIOLOGY 1:40 PM (30 min.) [facility] ELECTR[facility] RADIOLOGY 3:10 PM (20 min.) [address], Nuclear Medicine 27 28 29 20 [...] 1 tablet by mouth daily. ??? 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 Perez MD oracle technical developer. Divisions of Cardiology [place], [place] CC Patient Care Team: Toña Jones MD as PCP - General (Nephrology) Ingrid Santana, RN as Registered Nurse (Transplant) JESUS THOMAS documented in this encounter Plan of Treatment Not on filedocumented as of this encounter Visit Diagnoses Diagnosis Unspecified essential hypertension Pre-operative clearance Preoperative examination, unspecified documented in this encounter Care Teams Biology Specialist Relationship Specialty Start Date End Date Toña Jones MD PCP - General Nephrology 11/25/11 01/01/14 Ingrid Santana, RN Registered Nurse Transplant 02/10/12 documented as of this encounter
--- OUTSIDE RECORDS SUMMARY | 2022-07-29 13:08 | XMS_ITS | Encounter Summary ---
:1950 Author Organization [place] Address [address] [place] [address] Care Team Providers Name Role Phone Toña Jones MD Primary Care Provider Ingrid Santana RN Unavailable Unavailable Encounter Details Date Type Department Care Team Description 02/10/2012 Hospital Encounter M [facility] Jesus Cardenas MD Nutrition Services Martina Harley, RD [address] [facility] EMERGENCY DEPARTMENT [address] [place] [address] [address] [facility] Joseph Quintana MD [address] [facility] [address] [facility] [address] [place] [address] 84 [place] [address] Social History Tobacco Use Types Packs/Day Years [...] tablet by mouth 0 02/18/2014 daily. B vahttyy-A-mrvpc acid Take 1 capsule by mouth 0 [...] Mcneill, RD - 02/10/2012 8:47 AM CDT [facility] Medical Nutrition Therapy Visit Type: [...] on filedocumented in this encounter Care Teams Bargeman Relationship Specialty Start Date End Date Toña Jones MD PCP - General Nephrology 11/25/11 01/01/14 Ingrid Santana RN Registered Nurse Transplant 02/10/12 documented as of this encounter
--- OUTSIDE RECORDS SUMMARY | 2022-07-29 13:08 | XMS_ITS | Encounter Summary ---
:1950 Author Organization [place] Address [address] [place] [address] Care Team Providers Name Role Phone Toña Jones MD Primary Care Provider Ingrid Santana RN Unavailable Unavailable Momo Forbes Primary Care Provider Encounter Details Date Type Department Care Team Description 08/30/2011 Historic Results [facility] Provider, MD Marcela Social History Tobacco Use Types Packs/Day Years Used Date Smoking Tobacco: Never Assessed Sex Assigned at Date Recorded Not on file documented as of this encounter Plan of Treatment Not on filedocumented as of this encounter Procedures Procedure Name Priority Date/Time Associated Diagnosis Comme nts EKG CARDIAC - HIM SCAN 08/30/2011 8:28 AM SURGICAL ASSISTANT - ARCHIVE ECHO CARDIAC - HIM SCAN 08/30/2011 8:27 AM SURGICAL ASSISTANT - ARCHIVE documented in this encounter Results EKG CARDIAC - HIM SCAN - ARCHIVE (08/30/2011 8:28 AM SURGICAL ASSISTANT) Specimen (Source) Anatomical Location Collection Method / Collectio n Time Received Time / Laterality Volume Narrative This result has an attachment that is no t available. Gich Provider ECG ORDERABLES ECHO CARDIAC - HIM SCAN - ARCHIVE (08/30/2011 8:27 AM SURGICAL ASSISTANT) Anatomical Region Laterality Modality Echocardiography Specimen (Source) Anatomical Location Collection Method / Collectio n Time Received Time / Laterality Volume Narrative This result has an attachment that is no t available. Marcela Provider CV ECHO ORDERABLES documented in this encounter Visit Diagnoses Not on filedocumented in this encounter Care Teams Freelance Data Entry Relationship Specialty Start Date End Date Toña Jones MD PCP - General Nephrology 11/25/11 01/01/14 Momo Forbes PCP - General Family Practice 01/02/14 [facility] [address] [place] [address] Ingrid Santana, RN Registered Nurse Transplant 02/10/12 documented as of this encounter
--- OUTSIDE RECORDS SUMMARY | 2022-07-29 13:08 | XMS_ITS | Encounter Summary ---
:1950 Author Organization [place] Address [address] [place] [address]. [place] [address] Care Team Providers Name Role Phone Toña Jones MD Primary Care Provider Ingrid Santana RN Unavailable Unavailable Momo Forbes Primary Care Provider Encounter Details Date Type Department Care Team Description 05/20/[address] [facility] Provider, MD [...] on filedocumented in this encounter Care Teams Turf Farm Worker Relationship Specialty Start Date End Date Toña Jones MD PCP - General Nephrology 11/25/11 01/01/14 Momo Forbes PCP - General Family Practice 01/02/[address] [address] Siers, Ingrid A, RN Registered Nurse Transplant 02/10/12 documented as of this encounter
--- OUTSIDE RECORDS SUMMARY | 2022-07-29 13:08 | XMS_ITS | Encounter Summary ---
:1950 Author Organization [place] Address [facility] [place] [address] Care Team Providers Name Role Phone Toña Jones MD Primary Care Provider Reason for Visit Reason Comments Transplant Evaluation Kidney transplant evaluation - Diabetes, End Stage Renal Disease Encounter Details Date Type Department Care Team Description 02/08/2012 Office Visit The Transplant Edda Cardenas, Ty Blink, DM (diabetes 2nd Floor, Clinic 2A MD mellitus), type 2 (H) Tommy Wilburn (Primar y Dx) [address] [phone] Social History Tobacco Use Types Packs/Day Years [...] (willing/able to accept information): Yes Any cultural factors/methodist beliefs that may influence understanding or compliance? [...] uncontrolled documented in this encounter Care Teams Acid Regenerator Relationship Specialty Start Date End Date Toña Jones MD PCP - General Nephrology 11/25/11 01/01/14 documented as of this encounter
--- OUTSIDE RECORDS SUMMARY | 2022-07-29 13:08 | XMS_ITS | Encounter Summary ---
:1950 Author Organization [place] Address [address] [place] [address] Care Team Providers Name Role Phone Toña Jones MD Primary Care Provider Encounter Details Date Type Department Care Team Description 02/08/2012 Orders Only [facility] Thomas, Ty Blink, End sta ge kidney Pulmonary Function MD disease ( H) (Primary Laboratory Dx) 6th Floor [address] [place] [address] Social History Tobacco Use Types [...] Lab Testing (Generic) (02/08/2012 8:35 AM CDT) [facility] Method Time Signature Pulmonary COPATH Function Test Name: ? ELINOR GUTHRIE ? ID: ?[id number] Doctor: ?JESUS THMOAS ?Height: ?72.00 in ? Age: ?? 61 [...] INTERPRETATION: The FVC, FEV1, FEV1/FVC ratio and APG54-84% are within normal limits. ??The inspiratory flow [...] disease documented in this encounter Care Teams Stone Spreader Operator Relationship Specialty Start Date End Date Toña Jones MD PCP - General Nephrology 11/25/11 01/01/14 documented as of this encounter
--- OUTSIDE RECORDS SUMMARY | 2022-07-29 13:08 | XMS_ITS | Encounter Summary ---
:1950 Author Organization [place] Address [address] [place] [address]. [place] [address] Care Team Providers Name Role Phone Toña Jones MD Primary Care Provider Ingrid Santana RN Unavailable Unavailable Momo Forbes Primary Care Provider Encounter Details Date Type Department Care Team Description 05/12/2011 Historic Results [facility] Provider, [...] filedocumented in this encounter Care Teams Green Feed Attendant Relationship Specialty Start Date End Date Toña Jones MD PCP - General Nephrology 11/25/11 01/01/14 Momo Forbes PCP - General Family Practice 01/02/[address] [address] Siers, Ingrid A, RN Registered Nurse Transplant 02/10/12 documented as of this encounter
--- OUTSIDE RECORDS SUMMARY | 2022-07-29 13:08 | XMS_ITS | Encounter Summary ---
:1950 Author Organization [place] Address [address] [place] [address] Care Team Providers Name Role Phone Toña Jones MD Primary Care Provider Encounter Details Date Type Department Care Team Description 02/08/2012 Hospital Encounter [facility] Jesus Cardenas MD Patient Learning Bobby Angela Leon, BOGDAN [address] [facility] [address] [place] [id number] [address] [place] [address] Social History Tobacco Use Types Packs/Day Years [...] tablet by mouth 0 02/18/2014 daily. B uobcnyp-Y-wqgwm acid Take 1 capsule by mouth 0 [...] filedocumented in this encounter Care Teams Lumber Driver Relationship Specialty Start Date End Date Toña Jones MD PCP - General Nephrology 11/25/11 01/01/14 documented as of this encounter
--- OUTSIDE RECORDS SUMMARY | 2022-07-29 13:08 | XMS_ITS | Encounter Summary ---
:1950 Author Organization [place] Address [address] [place] [address] Care Team Providers Name Role Phone Toña Jones MD Primary Care Provider Ingrid Santana RN Unavailable Unavailable Encounter Details Date Type Department Care Team Description 02/08/2012 Orders Only [facility] Jesus Cardenas Di abetes mellitus, type 2 (H); [facility] Gordo oneal MD End stage renal disease (H); [address] [place]AG[place] [address] Social History Tobacco Use Types Packs/Day Years [...] Results ABO type (02/08/2012 1:52 PM CDT) [facility] Method Time Signature ABO A [facility] RH(D) Pos [facility] Specimen 02/11/2012 [facility] Expires [facility] Specimen Anatomical Collection Method Collection Time Receive d Time (Source) Location / / Volume Laterality Blood specimen 02/08/2012 1:52 PM 012 1:54 (specimen) CDT PM CDT Chucho Joshi MD LAB - BLOOD BANK TEST ORDER Performing Organization Address City/State/ZIP Code Phon e Number [id number] [place] [address] LABS EKG 12-lead, tracing only (02/08/2012 7:30 AM CDT) [facility] Method Time Signature Ventricular Rate 60 BPM RADIOLOGY RESULTS Atrial Rate 60 BPM RADIOLOGY RESULTS [place] Interval 186 ms RADIOLOGY RESULTS QRS Duration 104 ms RADIOLOGY RESULTS QT 440 ms RADIOLOGY RESULTS QTc 440 ms RADIOLOGY RESULTS P Varney 36 degrees RADIOLOGY RESULTS R AXIS 0 degrees RADIOLOGY RESULTS T [place] 36 degrees RADIOLOGY RESULTS Interpretation Sinus rhythm [...] DEFINED documented in this encounter Care Teams Professor/Nurse Anesthetist Relationship Specialty Start Date End Date Toña Jones MD PCP - General Nephrology 11/25/11 01/01/14 Ingrid Santana, RN Registered Nurse Transplant 02/10/12 documented as of this encounter
--- OUTSIDE RECORDS SUMMARY | 2022-07-29 13:08 | XMS_ITS | Encounter Summary ---
:1950 Author Organization [place] Address [address] [facility] [place] [address] Care Team Providers Name Role Phone Toña Jones MD Primary Care Provider Ingrid Santana RN Unavailable Unavailable Reason for Visit Reason Comments Transplant Evaluation kidney Encounter Details Date Type Department Care Team Description 02/10/2012 Office Visit Nephrology Darian Joshi MD [address] [facility] [address] [place], [place] [id number] Pre-transplant 2nd Floor, Clinic 2A Joseph Quintana MD [address] [facility] [address] [facility] [address] [place], [place] [id number] evaluation for Sanders Mimaalyssa chronic kidney Building disease (Primary Dx) [address] [place] [phone] Social History Tobacco Use Types Packs/Day Years [...] Dialysis unit: [facility] Primary Plastic Block Boiler Reliner: Dr. 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 Yes Reported, Patient B oyshkhg-C-bibof acid (NEPHROCAPS) 1 MG capsule Take 1 [...] NEG Ketones Urine Negative NEG (mg/dL) Specific [place] Urine 1.010 1.003 - 1.035 Blood Urine [...] Report Value: Patient Name: ELINOR GUTHRIE MR#: [id number] Specimen #: [id number] Collected: 02/08/2012 07:07 Received: 02/08/2012 09:00 Reported: 02/11/2012 14:03 Ordering Phy(s): DARIAN JOSHI TEST(S) REQUESTED: A: Factor 5 Leiden and Factor 2 by PCR B: DNA Isolation, High purity extraction SPECIMEN DESCRIPTION: Blood METHODOLOGY: The regions of genomic DNA containing the S7814P Factor 5 gene mutation (Factor V Leiden) and the Factor 2(Prothrombin P01320B) gene mutation were simultaneously amplified using the polymerase chain reaction. The amplified products were digested with restriction endonuclease TaqI and products were analyzed by gel electrophoresis. RESULTS: FACTOR 5-LEIDEN RESULTS: Mutation analyzed: 1691G>A Factor 5 Mutation Interpretation: ABSENT Factor 5 Mutation genotype: G/G FACTOR 2/PROTHROMBIN RESULTS: Mutation analyzed: 93330F>A Factor 2 Mutation Interpretation: ABSENT Factor 2 Mutation genotype: G/G INTERPRETATION: The patient is negative for the Factor 5 mutation and negative for the Factor 2 mutation. This test was developed and its performance determined by the [facility]. It has [...] By: Liliya Stone MD TESTING LAB LOCATION: [address] [address] COLLECTION SITE: Client: [facility] Location: [facility] () HLA LUKASZ CLASS I SINGLE [...] of an antiphospholipid syndrome, recommend anticardiolipin and qypb-2-yxpbzawweomd (IgG and IgM) antibody tests. Dee Duenas M.D. [phone] 02-09-2012. APTT'S: Seconds Reagent = Stago LS [...] Duration 104 QT 440 QTc 440 P [place] 36 R AXIS 0 T [place] 36 Interpretation ECG Sinus rhythm Interpretation ECG [...] Function Test Value: Name: ELINOR GUTHRIE ID: [id number] Doctor: DONYA THOMAS Height: 72.00 in Age: [...] INTERPRETATION: The FVC, FEV1, FEV1/FVC ratio and MIK71-68% are within normal limits. The inspiratory flow [...] CDT >> AUSTEN FAUSTIN [facility] Feb 10, 2012 9:54 AM Took vitals, cc, reviewed meds and allergies documented in this encounter Plan of Treatment Not on filedocumented as of this encounter Visit Diagnoses Diagnosis Pre-transplant evaluation for chronic ki dney disease - Primary Other specified pre-operative examinatio n documented in this encounter Care Teams Residential Mental Health Worker Relationship Specialty Start Date End Date Toña Jones MD PCP - General Nephrology 11/25/11 01/01/14 Ingrid Santana, RN Registered Nurse Transplant 02/10/12 documented as of this encounter
--- OUTSIDE RECORDS SUMMARY | 2022-07-29 13:08 | XMS_ITS | Encounter Summary ---
:1950 Author Organization [place] Address [address] [facility] [place] [address] Care Team Providers Name Role Phone Toña [...] filedocumented in this encounter Care Teams Bit Sharpener Operator Relationship Specialty Start Date End Date Toña Jones MD PCP - General Nephrology 11/25/11 01/01/14 Momo Forbes PCP - General Family Practice 01/02/14 [facility] [address] [place] [address] Ingrid Santana, RN Registered Nurse Transplant 02/10/12 documented as of this encounter
--- OUTSIDE RECORDS SUMMARY | 2022-07-29 13:09 | XMS_ITS | Encounter Summary ---
:1950 Author Organization [place] Address [address] [place] [address]. [place] [address] Care Team Providers Name Role Phone Toña Jones MD Primary Care Provider Ingrid Santana RN Unavailable Unavailable Momo Forbes Primary Care Provider Encounter Details Date Type Department Care Team Description 01/14/2006 Historic Results [facility] Provider, MD Marcela Social History Tobacco [...] on filedocumented in this encounter Care Teams Decorating Kiln Operator Relationship Specialty Start Date End Date Toña Jones MD PCP - General Nephrology 11/25/11 01/01/14 Momo Forbes PCP - General Family Practice 01/02/[address] [address] Siers, Ingrid A, RN Registered Nurse Transplant 02/10/12 documented as of this encounter
--- OUTSIDE RECORDS SUMMARY | 2022-07-29 13:09 | XMS_ITS | Encounter Summary ---
:1950 Author Organization [place] Address [address] [place] [address]. [place] [address] Care Team Providers Name Role Phone Toña Jones MD Primary Care Provider Ingrid Santana RN Unavailable Unavailable Momo Forbes Primary Care Provider Encounter Details Date Type Department Care Team Description 01/02/2008 Historic Results [facility] - [...] filedocumented in this encounter Care Teams Maintenance Supervisor Electrical Relationship Specialty Start Date End Date Toña Jones MD PCP - General Nephrology 11/25/11 01/01/14 Momo Forbes PCP - General Family Practice 01/02/[address] [address] Siers, Ingrid A, RN Registered Nurse Transplant 02/10/12 documented as of this encounter
--- OUTSIDE RECORDS SUMMARY | 2022-07-29 13:09 | XMS_ITS | Encounter Summary ---
:1950 Author Organization [place] Address [address] [place] [address]. [place] [address] Care Team Providers Name Role Phone Toña Jones MD Primary Care Provider Ingrid Santana RN Unavailable Unavailable Momo Forbes Primary Care Provider Encounter Details Date Type Department Care Team Description 04/12/2007 Historic Results [facility] Provider, [...] filedocumented in this encounter Care Teams Wool Hat Sanding Machine Operator Relationship Specialty Start Date End Date Toña Jones MD PCP - General Nephrology 11/25/11 01/01/14 Momo Forbes PCP - General Family Practice 01/02/[address] [address] Siers, Ingrid A, RN Registered Nurse Transplant 02/10/12 documented as of this encounter
--- OUTSIDE RECORDS SUMMARY | 2022-07-29 13:09 | XMS_ITS ---
:1950 Author Organization [place] Address [address] [place] [address] Care Team Providers Name Role Phone Momo Forbes Primary Care Provider Joseph Quintana MD Unavailable [facility] [place] [facility], [place] - MNUMOrgan Received: Right KidneyTransplanted on 02/02/2014Marked as Active Follow-up on 02/02/2014 Kidney CoordinatorCHAPO Durhamhone: N/AFax: N/AEmail: N/A [place] Organ Diagnosis Organ Primary Contributory Kidney Diabetes Mellitus - Type II Infection History Noted Survival Infection Treatment Organism Resolved 09/18/2020 6 years 7 months Gram-negative Surgery, Medical bacterial infection management 09/17/2020 6 years 7 months Bacterial infection Antibiotics Donor Information Organ ABO Source Meets Risk HLA Match Mismatches Cross [facility] Criteria Right Kidney A1 DBD No [...] N/A G German Jones MD Referring Physician [phone] [email or web address] Events Post-Transplant Pre-Transplant Admitted: 02/02/2014 Referred: 12/07/2011 Transplanted: 02/02/2014 Evaluation began: 02/08/2012 Discharged: 02/08/2014 Committee: 02/16/2012 Center waitlisted: 02/18/2012 Dialysis History Dialysis History Start End Type Comments Center 09/06/2011 02/02/2014 Hemo Dialysis Days per week -- [facility] ([facility] Dialysis Center Information Center Phone Fax Address [facility] [phone] [address] (ESRD) [facility] [phone]
--- OUTSIDE RECORDS SUMMARY | 2022-07-29 13:09 | XMS_ITS | Encounter Summary ---
:1950 Author Organization [place] Address [address] [place] [address]. [place] [address] Care Team Providers Name Role Phone Toña Jones MD Primary Care Provider Ingrid Santana RN Unavailable Unavailable Momo Forbes Primary Care Provider Encounter Details Date Type Department Care Team Description 12/13/2005 Historic Results [facility] Provider, MD Marcela Social History Tobacco Use [...] filedocumented in this encounter Care Teams Kiln Repairer Relationship Specialty Start Date End Date Toña Jones MD PCP - General Nephrology 11/25/11 01/01/14 Momo Forbes PCP - General Family Practice 01/02/[address] [address] Siers, Ingrid A, RN Registered Nurse Transplant 02/10/12 documented as of this encounter
--- OUTSIDE RECORDS SUMMARY | 2022-07-29 13:09 | XMS_ITS | Encounter Summary ---
:1950 Author Organization [place] Address [address] [place] [address] Care Team Providers Name Role Phone Toña [...] filedocumented in this encounter Care Teams Health Program Director Relationship Specialty Start Date End Date Toña Jones MD PCP - General Nephrology 11/25/11 01/01/14 Momo Forbes PCP - General Family Practice 01/02/14 [facility] [address] [place] [address] Ingrid Santana, RN Registered Nurse Transplant 02/10/12 documented as of this encounter
--- OUTSIDE RECORDS SUMMARY | 2022-07-29 13:09 | XMS_ITS | Encounter Summary ---
:1950 Author Organization [place] Address [address] [facility] [place] [address] Care Team Providers Name Role Phone Toña [...] filedocumented in this encounter Care Teams Hatchery Helper Relationship Specialty Start Date End Date Toña Jones MD PCP - General Nephrology 11/25/11 01/01/14 Momo Forbes PCP - General Family Practice 01/02/14 [facility] [address] [place] [address] Ingrid Santana, RN Registered Nurse Transplant 02/10/12 documented as of this encounter
--- OUTSIDE RECORDS SUMMARY | 2022-07-29 13:09 | XMS_ITS | Encounter Summary ---
:1950 Author Organization [place] Address [address] [place] [address]. [place] [address] Care Team Providers Name Role Phone Toña Jones MD Primary Care Provider Ingrid Santana RN Unavailable Unavailable Momo Forbes Primary Care Provider Encounter Details Date Type Department Care Team Description 01/12/2010 Historic Results [facility] Provider, MD Marcela Social History Tobacco [...] filedocumented in this encounter Care Teams Dry Man Relationship Specialty Start Date End Date Toña Jones MD PCP - General Nephrology 11/25/11 01/01/14 Momo Forbes PCP - General Family Practice 01/02/[address] [address] Siers, Ingrid A, RN Registered Nurse Transplant 02/10/12 documented as of this encounter
--- OUTSIDE RECORDS SUMMARY | 2022-07-29 13:09 | XMS_ITS | Encounter Summary ---
:1950 Author Organization [place] Address [address] [place] [address] Care Team Providers Name Role Phone Toña [...] filedocumented in this encounter Care Teams Client Experience Manager Relationship Specialty Start Date End Date Toña Jones MD PCP - General Nephrology 11/25/11 01/01/14 Momo Forbes PCP - General Family Practice 01/02/14 [facility] [address] [place] [address] Ingrid Santana, RN Registered Nurse Transplant 02/10/12 documented as of this encounter
--- OUTSIDE RECORDS SUMMARY | 2022-07-29 13:09 | XMS_ITS | Encounter Summary ---
:1950 Author Organization [place] Address [address] [place] [address]. [place] [address] Care Team Providers Name Role Phone Toña [...] on filedocumented in this encounter Care Teams Orthodontist Assistant Relationship Specialty Start Date End Date Toña Jones MD PCP - General Nephrology 11/25/11 01/01/14 Momo Forbes PCP - General Family Practice 01/02/[address] [address] Siers, Ingrid A, RN Registered Nurse Transplant 02/10/12 documented as of this encounter
--- OUTSIDE RECORDS SUMMARY | 2022-07-29 13:09 | XMS_ITS | Encounter Summary ---
:1950 Author Organization [place] Address [address] [facility] [place] [address] Care Team Providers Name Role Phone Toña [...] - HIM SCAN - 11/02/2005 8:27 AM BARRELHEAD INSPECTOR ARCHIVE LAB RESULT - HIM SCAN - 11/02/2005 8:25 AM BARRELHEAD INSPECTOR ARCHIVE documented in this encounter Results LAB RESULT - HIM SCAN - ARCHIVE (11/02/2005 8:27 AM BARRELHEAD INSPECTOR) Specimen (Source) Anatomical Location Collection Method / Collectio n Time Received Time / Laterality Volume Narrative This result has an attachment that is no t available. Marcela Provider LAB - BLOOD ORDERABLES LAB RESULT - HIM SCAN - ARCHIVE (11/02/2005 8:25 AM BARRELHEAD INSPECTOR) Specimen (Source) Anatomical Location Collection Method / Collectio n Time Received Time / Laterality Volume Narrative This result has an attachment that is no t available. Marcela Provider LAB - BLOOD ORDERABLES documented in this encounter Visit Diagnoses Not on filedocumented in this encounter Care Teams Net Sorter Relationship Specialty Start Date End Date Toña Jones MD PCP - General Nephrology 11/25/11 01/01/14 Momo Forbes PCP - General Family Practice 01/02/[address] [address] Ingrid Santana, RN Registered Nurse Transplant 02/10/12 documented as of this encounter
--- OUTSIDE RECORDS SUMMARY | 2022-07-29 13:09 | XMS_ITS | Encounter Summary ---
:1950 Author Organization [place] Address [address] [place] [address]. [place] [address] Care Team Providers Name Role Phone Toña Jones MD Primary Care Provider Ingrid Santana RN Unavailable Unavailable Momo Forbes Primary Care Provider Encounter Details Date Type Department Care Team Description 06/05/2008 Historic Results [facility] Provider, MD Marcela Social History Tobacco Use [...] filedocumented in this encounter Care Teams Tail Board Worker Relationship Specialty Start Date End Date Toña Jones MD PCP - General Nephrology 11/25/11 01/01/14 Momo Forbes PCP - General Family Practice 01/02/[address] [address] Siers, Ingrid A, RN Registered Nurse Transplant 02/10/12 documented as of this encounter
--- OUTSIDE RECORDS SUMMARY | 2022-07-29 13:09 | XMS_ITS | Encounter Summary ---
:1950 Author Organization [place] Address [address] [facility] [place] [address] Care Team Providers Name Role Phone Unavailable Primary Care Provider Unavailable Encounter Details Date Type Department Care Team Description 07/30/2009 Results [facility] Results [address] [place] [address] [place] [id number] Social History Tobacco Use Types Packs/Day Years Used Date Smoking Tobacco: Never Assessed Sex Assigned at Date Recorded Not on file documented as of this encounter Plan of Treatment Not on filedocumented as of this encounter Procedures Procedure Name Priority Date/Time Associated Diagnosis [facility] RT DUPLEX Routine 07/30/2009 12:32 PM Results for this EXTREM VENOUS,UNI GENERAL MAINTENANCE TECHNICIAN procedure are in OR LTD the results section. documented in this encounter Results RT DUPLEX EXTREM VENOUS,UNI OR LTD (07/30/2009 12:32 PM GENERAL MAINTENANCE TECHNICIAN) Anatomical Region Laterality Modality Other Specimen (Source) Anatomical Collection Method Collection Time Re ceived Time Location / / Volume Laterality 07/30/2009 12:32 PM GENERAL MAINTENANCE TECHNICIAN Impressions 07/30/2009 4:21 PM GENERAL MAINTENANCE TECHNICIAN ULTRASOUND VENOUS LOWER EXTREMITY UNILAT ERAL [...]
== END 2022-07-16 10:53 | disposition home or self-care (01) ==
LOC: AMB 07-29 12:51
PROVIDERS: PCP Family Medicine; Visit Provider Emergency Medicine
DX: R53.1 Weakness (principal); E66.01 Morbid (severe) obesity due to excess calories; Z99.81 Dependence on supplemental oxygen
CPT/HCPCS: A0425; A0426

== ENCOUNTER 2022-09-14 11:03 | Outpatient (CLI) | payer MEDICARE, BC, SELFPAY ==
[2022-09-14 14:29] LABS: Chloride* 109 mmol/L (96-114); Sodium* 142 mmol/L (135-149)
[2022-09-14 14:32] LABS: Blood Urea Nitrogen* 35 mg/dL (7-30); Calcium* 10.2 mg/dL (8.4-10.6); Carbon Dioxide* 25 mmol/L (20-32); Creatinine* 2.4 mg/dL (0.5-1.5); Estimated Glomerular Filt Rate 28 ml/min; Glucose* 99 mg/dL (60-115)
[2022-09-14 16:43] LABS: Potassium* 5.1 mmol/L (3.6-5.1)
== END 2022-09-14 11:04 | disposition home or self-care (01) ==
PROVIDERS: PCP Family Medicine; Visit Provider Family Medicine
DX: I10 Essential (primary) hypertension (principal); E03.9 Hypothyroidism, unspecified; E78.5 Hyperlipidemia, unspecified; E11.9 Type 2 diabetes mellitus without complications; R35.0 Frequency of micturition
CPT/HCPCS: 80048; 83036; 84443; 85025; 87086; 87186

== ENCOUNTER 2022-09-14 14:36 | Outpatient (REF) | payer MEDICARE, BC, SELFPAY ==
[2022-09-14 16:23] LABS: Basophils Absolute Auto 0.02 K/uL (0.00-0.30); Basophils Percent Auto 0.4 % (0.0-3.0); Chloride* 108 mmol/L (96-114); Eosinophils Absolute Auto 0.25 K/uL (0.00-0.50); Eosinophils Percent Auto 4.5 % (0.0-7.0); Hematocrit 37.4 % (37.0-53.0); Hemoglobin* 11.2 gm/dL (13.5-17.5); Lymphocytes Percent Auto 14.5 % (20-44); Mean Corpuscular HGB Conc 30 gm/dL (32-36); Mean Corpuscular Hemoglobin 26 pg (26-34); Mean Corpuscular Volume 87 fL (80-100); Monocytes Percent Auto 7.5 % (0.0-11.0); Neutrophils Percent Auto 73.1 % (42.0-72.0); Platelet Count* 116 K/uL (140-440); Potassium* 4.4 mmol/L (3.6-5.1); RDW Coefficient of Variation % 17.5 % (11.5-15.5); Red Blood Count 4.28 m/uL (4.30-5.90); Sodium* 140 mmol/L (135-149)
[2022-09-14 16:26] LABS: Blood Urea Nitrogen* 34 mg/dL (7-30); Calcium* 9.9 mg/dL (8.4-10.6); Carbon Dioxide* 25 mmol/L (20-32); Creatinine* 2.3 mg/dL (0.5-1.5); Estimated Glomerular Filt Rate 29 ml/min; Glucose* 95 mg/dL (60-115)
[2022-09-14 16:32] LABS: Slide Review Reflex No
[2022-09-14 17:01] LABS: Hemoglobin A1C* 7.28 % (0-5.6)
[2022-09-17 07:48] LABS: Tacrolimus by HPLC-MS/MS 5.1 ng/mL
== END 2022-09-14 14:37 | disposition home or self-care (01) ==
LOC: NPINS 14:36
PROVIDERS: PCP Family Medicine; Visit Provider Family Medicine
DX: R35.0 Frequency of micturition (principal); E11.9 Type 2 diabetes mellitus without complications
CPT/HCPCS: 80048; 80197; 83036; 85025

== ENCOUNTER 2022-10-04 14:48 | Outpatient (CLI) | payer MEDICARE, BC, SELFPAY ==
[2022-10-04 23:06] LABS: Chloride* 107 mmol/L (96-114); Potassium* 5.1 mmol/L (3.6-5.1); Sodium* 138 mmol/L (135-149)
[2022-10-04 23:09] LABS: Blood Urea Nitrogen* 40 mg/dL (7-30); Carbon Dioxide* 24 mmol/L (20-32); Creatinine* 2.5 mg/dL (0.5-1.5); Estimated Glomerular Filt Rate 27 ml/min
[2022-10-04 23:10] LABS: Calcium* 9.6 mg/dL (8.4-10.6); Glucose* 274 mg/dL (60-115)
== END 2022-10-04 14:49 | disposition home or self-care (01) ==
LOC: FBOREF 14:48
PROVIDERS: PCP Family Medicine; Visit Provider Family Medicine
DX: I10 Essential (primary) hypertension (principal)
CPT/HCPCS: 80048

== ENCOUNTER 2022-10-05 10:17 | Outpatient (CLI) | payer MEDICARE, BC, SELFPAY ==
--- NOTE | 2022-10-05 11:00 | CRLHL7_ITS ---
For Patients: As a result of the Century Cures Act, medical imaging exams and procedure reports are released immediately into your electronic medical record. You may view this report before your referring provider. If you have questions, please contact your health care provider. INDICATION: FOLLOW UP ELEVATED CREATININE, HYPERTENSION, RENAL TRANSPLANT (2013) TECHNIQUE: Pina scale, color Doppler and power Doppler evaluation of the right renal transplant. COMPARISON: None available FINDINGS: The transplanted kidney is located within the right lower quadrant and measures 10.8 cm in length. The renal cortex measures 8 millimeters. Moderate hydronephrosis is present. Peak systolic velocity within the renal artery measures 90-140. Resistive indices measure 0.8. Normal evaluation of the right iliac artery and right iliac vein. IMPRESSION: Moderate hydronephrosis of the transplanted kidney in the right lower quadrant. Mild renal cortical thinning and slight elevation of resistive indices. No evidence of renal artery stenosis. Dictated by Momo Joaquin MD @ 10/05/2022 12:51:50 PM (Electronically Signed)
== END 2022-10-05 10:18 | disposition home or self-care (01) ==
LOC: US 10:18
PROVIDERS: PCP Family Medicine; Visit Provider Internal Medicine
DX: R79.82 Elevated C-reactive protein (CRP) (principal); N13.30 Unspecified hydronephrosis; I10 Essential (primary) hypertension
CPT/HCPCS: 76775; 76776; 80048; 80197; 85025; 93975

== ENCOUNTER 2022-10-05 11:40 | Outpatient (REF) | payer MEDICARE, BC, SELFPAY ==
[2022-10-05 11:57] LABS: Chloride* 108 mmol/L (96-114); Sodium* 140 mmol/L (135-149)
[2022-10-05 12:00] LABS: Blood Urea Nitrogen* 43 mg/dL (7-30); Carbon Dioxide* 25 mmol/L (20-32); Creatinine* 2.6 mg/dL (0.5-1.5); Estimated Glomerular Filt Rate 25 ml/min
[2022-10-05 12:01] LABS: Basophils Absolute Auto 0.02 K/uL (0.00-0.30); Basophils Percent Auto 0.4 % (0.0-3.0); Calcium* 9.7 mg/dL (8.4-10.6); Eosinophils Absolute Auto 0.39 K/uL (0.00-0.50); Eosinophils Percent Auto 6.9 % (0.0-7.0); Glucose* 144 mg/dL (60-115); Hematocrit 42.3 % (37.0-53.0); Hemoglobin* 12.9 gm/dL (13.5-17.5); Immature Granulocytes Abs Auto 0.01 K/uL (0.00-0.30); Immature Granulocytes Pct Auto 0.2 %; Lymphocytes Absolute Auto 1.15 K/uL (0.90-2.90); Lymphocytes Percent Auto 20.2 % (20-44); Mean Corpuscular HGB Conc 31 gm/dL (32-36); Mean Corpuscular Hemoglobin 26 pg (26-34); Mean Corpuscular Volume 86 fL (80-100); Monocytes Percent Auto 8.3 % (0.0-11.0); Neutrophils Absolute Auto 3.64 K/uL (1.7-7.0); Platelet Count* 125 K/uL (140-440); RDW Coefficient of Variation % 16.4 % (11.5-15.5); Red Blood Count 4.92 m/uL (4.30-5.90); White Blood Count* 5.68 K/uL (4.50-11.00)
[2022-10-05 12:03] LABS: Slide Review Reflex No
[2022-10-07 08:19] LABS: Tacrolimus by HPLC-MS/MS 7.6 ng/mL
== END 2022-10-05 11:41 | disposition home or self-care (01) ==
LOC: NPINS 11:40
PROVIDERS: PCP Family Medicine
DX: Z94.0 Kidney transplant status (principal)
CPT/HCPCS: 80048; 80197; 85025

== ENCOUNTER 2022-10-19 13:51 | Outpatient (RCR) | payer MEDICARE, BC, SELFPAY ==
[2022-10-19 14:18] LABS: Basophils Absolute Auto 0.01 K/uL (0.00-0.30); Basophils Percent Auto 0.2 % (0.0-3.0); Eosinophils Absolute Auto 0.29 K/uL (0.00-0.50); Eosinophils Percent Auto 5.1 % (0.0-7.0); Hematocrit 42.6 % (37.0-53.0); Hemoglobin* 13.4 gm/dL (13.5-17.5); Lymphocytes Absolute Auto 1.16 K/uL (0.90-2.90); Lymphocytes Percent Auto 20.2 % (20-44); Mean Corpuscular HGB Conc 32 gm/dL (32-36); Mean Corpuscular Hemoglobin 26 pg (26-34); Mean Corpuscular Volume 83 fL (80-100); Monocytes Percent Auto 7.7 % (0.0-11.0); Neutrophils Absolute Auto 3.84 K/uL (1.7-7.0); Neutrophils Percent Auto 66.8 % (42.0-72.0); Platelet Count* 128 K/uL (140-440); RDW Coefficient of Variation % 15.4 % (11.5-15.5); Red Blood Count 5.11 m/uL (4.30-5.90); White Blood Count* 5.74 K/uL (4.50-11.00)
[2022-10-19 14:19] LABS: Chloride* 109 mmol/L (96-114); Potassium* 4.4 mmol/L (3.6-5.1); Sodium* 142 mmol/L (135-149)
[2022-10-19 14:22] LABS: Blood Urea Nitrogen* 50 mg/dL (7-30); Carbon Dioxide* 23 mmol/L (20-32); Creatinine* 2.8 mg/dL (0.5-1.5); Estimated Glomerular Filt Rate 23 ml/min; Glucose* 277 mg/dL (60-115)
[2022-10-19 14:23] LABS: Calcium* 9.8 mg/dL (8.4-10.6)
[2022-10-19 14:47] LABS: Slide Review Reflex Yes
[2022-10-21 14:51] LABS: Tacrolimus by HPLC-MS/MS 8.2 ng/mL
[2022-10-26 15:12] LABS: Basophils Absolute Auto 0.01 K/uL (0.00-0.30); Basophils Percent Auto 0.2 % (0.0-3.0); Eosinophils Absolute Auto 0.26 K/uL (0.00-0.50); Eosinophils Percent Auto 4.1 % (0.0-7.0); Hematocrit 45.3 % (37.0-53.0); Hemoglobin* 14.4 gm/dL (13.5-17.5); Immature Granulocytes Abs Auto 0.01 K/uL (0.00-0.30); Immature Granulocytes Pct Auto 0.2 %; Lymphocytes Percent Auto 18.6 % (20-44); Mean Corpuscular HGB Conc 32 gm/dL (32-36); Mean Corpuscular Hemoglobin 26 pg (26-34); Mean Corpuscular Volume 83 fL (80-100); Monocytes Percent Auto 6.7 % (0.0-11.0); Neutrophils Absolute Auto 4.42 K/uL (1.7-7.0); Neutrophils Percent Auto 70.2 % (42.0-72.0); Platelet Count* 142 K/uL (140-440); RDW Coefficient of Variation % 15.2 % (11.5-15.5); Red Blood Count 5.47 m/uL (4.30-5.90); White Blood Count* 6.29 K/uL (4.50-11.00)
[2022-10-26 17:52] LABS: Chloride* 105 mmol/L (96-114); Sodium* 140 mmol/L (135-149)
[2022-10-26 17:53] LABS: Potassium* 4.4 mmol/L (3.6-5.1)
[2022-10-26 17:55] LABS: Blood Urea Nitrogen* 53 mg/dL (7-30); Carbon Dioxide* 24 mmol/L (20-32); Creatinine* 2.9 mg/dL (0.5-1.5); Estimated Glomerular Filt Rate 22 ml/min
[2022-10-26 17:56] LABS: Calcium* 10.2 mg/dL (8.4-10.6); Glucose* 205 mg/dL (60-115)
[2022-10-26 19:15] LABS: Slide Review Reflex Yes
[2022-10-26 19:17] LABS: Slide Review Acceptable Review (Acceptable)
[2022-10-26 19:18] LABS: Slide Review Acceptable Review (Acceptable)
[2022-10-29 10:02] LABS: Tacrolimus by HPLC-MS/MS 7.6 ng/mL
== END 2023-09-21 14:37 | disposition home or self-care (01) ==
LOC: NPINS 13:51
PROVIDERS: PCP Family Medicine; Visit Provider Internal Medicine
DX: Z94.0 Kidney transplant status (principal)
CPT/HCPCS: 80048; 80197; 81003; 85025; 87086

== ENCOUNTER 2022-12-09 12:39 | Outpatient (CLI) | payer MEDICARE, BC, SELFPAY ==
--- NOTE | 2022-12-09 12:15 | CRLHL7_ITS ---
For Patients: As a result of the Century Cures Act, medical imaging exams and procedure reports are released immediately into your electronic medical record. You may view this report before your referring provider. If you have questions, please contact your health care provider. CLINICAL HISTORY: Renal transplant evaluation COMPARISON: 10/05/2022 TECHNIQUE: Sandoval scale and color Doppler images were acquired of the transplant kidney and bladder FINDINGS: Mild prominence of the right renal pelvis is present which has improved compared to the prior study. The transplant kidney measures 11.8 cm in length. The renal cortex is normal in thickness measuring 1.3 cm. Normal color Doppler flow to the transplanted kidney in the right lower quadrant. Small cysts are present, as before, measuring up to 1.1 cm. The urinary bladder appears normal. Prevoid bladder volume 260 cc. Postvoid bladder volume 5 cc. Mild fullness of the bladder wall may be present measuring up to 9 millimeters. IMPRESSION: Decreased renal transplant hydronephrosis compared to the prior study. Dictated by Momo Joaquin MD @ 12/10/2022 10:53:20 AM (Electronically Signed)
== END 2022-12-09 12:40 | disposition home or self-care (01) ==
LOC: US 12:41
PROVIDERS: PCP Family Medicine; Visit Provider Internal Medicine
DX: R30.0 Dysuria (principal); Z94.0 Kidney transplant status
CPT/HCPCS: 76770

== ENCOUNTER 2023-02-09 09:12 | Outpatient (CLI) | payer MEDICARE, BC, SELFPAY ==
--- OUTSIDE RECORDS SUMMARY | 2023-02-09 09:16 | XMS_ITS | Continuity of Care Document ---
Author Name Unknown Organization [facility] Address [address] [place] [address] Phone Care Team Providers Care Fiction Writer Name Role Phone Bebo Peñaloza DO Unavailable Unavailable Results Test Name Date and Time Measure Units Reference Range Abnormal Flag Status Commen ts Panel Description: IM Final AST 16:35:00 20 U/L 5-34 Final Creatinine 16:35:00 3.5 mg/dL 0.5-1.3 HH Final ALB 16:35:00 3.0 g/dL 3.5-5.3 L Final Uric Acid 16:35:00 4.2 mg/dL 3.5-7.2 Final Alk Phos 16:35:00 82 U/L 30-103 Final CK 16:35:00 86 U/L 38-174 Final Advance Directives Directive Yes / No Effective Date File Name No Information Encounters Encounter Description Practice Location Reason(s) For Visit Diagnoses Date Provider Providers Copied on Encounter [facility], [address], [place], [address], tel:[phone] No Information 3 Jh Lagunas. [facility] [address], [place], [address], [place]. tel:[phone] Family History Family Member Type Diagnosis Age At Onset No Information Payers Payer name Insurance type Covered green party ID Authoriza tion(s) No Information Social History Type Description Quantity Date Captured Comments Sex Male Smoking Status No Information Chief Complaint And Reason For Visit No Information Reason For Referral Reason For Referral No Information Plan Of Treatment Date Type Action Status No Information History Of Present Illness Encounter Date Complaint History Of Prese nt Illness No Information Functional Status Date Functional Assessmen t No Information Instructions Date Instruction Additional Infor mation No Information Assessments Type Assessment Date No Information Patient Care Teams Name Effective Dates (start - stop) Status Members No Information
== END 2023-02-09 09:13 | disposition home or self-care (01) ==
LOC: WOUND 09:14
PROVIDERS: PCP Family Medicine; Visit Provider Surgery
DX: L89.313 Pressure ulcer of right buttock, stage 3 (principal); L89.322 Pressure ulcer of left buttock, stage 2
CPT/HCPCS: 97597; 99212

== ENCOUNTER 2023-02-16 10:25 | Outpatient (CLI) | payer MEDICARE, BC, SELFPAY | END 2023-02-16 10:26 | disposition home or self-care (01) | LOC: WOUND 10:25 | PROVIDERS: PCP Family Medicine; Visit Provider Surgery | DX: L89.313 Pressure ulcer of right buttock, stage 3 (principal) | CPT/HCPCS: 97597 ==

== ENCOUNTER 2023-02-23 09:50 | Outpatient (CLI) | payer MEDICARE, BC, SELFPAY ==
--- OUTSIDE RECORDS SUMMARY | 2023-02-23 09:52 | XMS_ITS | Continuity of Care Document ---
Author Name Unknown Organization [facility] Address [address] [place] [address] Phone Care Team Providers Care Manager Fire Name Role Phone Bebo Peñaloza DO Unavailable [...] [facility], [address], [place], [address], tel:[phone] No Information 3 Jh Lagunas. [facility] [address], [place], [address], [place]. tel:[phone] Family History Family Member Type Diagnosis Age At Onset No Information Payers Payer name Insurance type Covered libertarian ID Authoriza tion(s) No Information Social History [...]
== END 2023-02-23 09:51 | disposition home or self-care (01) ==
LOC: WOUND 09:50
PROVIDERS: PCP Family Medicine; Visit Provider Surgery
DX: L89.313 Pressure ulcer of right buttock, stage 3 (principal)
CPT/HCPCS: 97597

== ENCOUNTER 2023-03-02 10:21 | Outpatient (CLI) | payer MEDICARE, BC, SELFPAY | END 2023-03-02 10:22 | disposition home or self-care (01) | LOC: WOUND 10:21 | PROVIDERS: PCP Family Medicine; Visit Provider Surgery | DX: L89.313 Pressure ulcer of right buttock, stage 3 (principal) | CPT/HCPCS: 97597 ==

== ENCOUNTER 2023-03-04 13:27 | Outpatient (CLI) | payer MEDICARE, BC, SELFPAY | END 2023-03-04 13:28 | disposition home or self-care (01) | LOC: WOUND 13:28 | PROVIDERS: PCP Family Medicine; Visit Provider Surgery | DX: L89.313 Pressure ulcer of right buttock, stage 3 (principal); L89.92 Pressure ulcer of unspecified site, stage 2; T87.89 Other complications of amputation stump; L89.512 Pressure ulcer of right ankle, stage 2 | CPT/HCPCS: 99213 ==

== ENCOUNTER 2023-03-07 11:37 | Outpatient (CLI) | payer MEDICARE, BC, SELFPAY | END 2023-03-07 11:38 | disposition home or self-care (01) | LOC: WOUND 11:38 | PROVIDERS: PCP Family Medicine; Visit Provider Surgery | DX: L89.313 Pressure ulcer of right buttock, stage 3 (principal); L89.92 Pressure ulcer of unspecified site, stage 2; T87.89 Other complications of amputation stump; L89.512 Pressure ulcer of right ankle, stage 2 | CPT/HCPCS: 99213 ==

== ENCOUNTER 2023-03-09 10:55 | Outpatient (CLI) | payer MEDICARE, BC, SELFPAY | END 2023-03-09 10:56 | disposition home or self-care (01) | LOC: WOUND 10:55 | PROVIDERS: PCP Family Medicine; Visit Provider Physician Assistant Surgical | DX: L89.313 Pressure ulcer of right buttock, stage 3 (principal); L89.892 Pressure ulcer of other site, stage 2; Z89.512 Acquired absence of left leg below knee; I87.311 Chronic venous hypertension (idiopathic) with ulcer of right lower extremity; L97.812 Non-pressure chronic ulcer of other part of right lower leg with fat layer exposed; S91.204A Unspecified open wound of right lesser toe(s) with damage to nail, initial encounter | CPT/HCPCS: 11042; 99212 ==

== ENCOUNTER 2023-03-11 13:07 | Outpatient (CLI) | payer MEDICARE, BC, SELFPAY | END 2023-03-11 13:08 | disposition home or self-care (01) | LOC: WOUND 13:07 | PROVIDERS: PCP Family Medicine; Visit Provider Physician Assistant Surgical | DX: L89.313 Pressure ulcer of right buttock, stage 3 (principal); S91.204A Unspecified open wound of right lesser toe(s) with damage to nail, initial encounter; I87.311 Chronic venous hypertension (idiopathic) with ulcer of right lower extremity; L97.812 Non-pressure chronic ulcer of other part of right lower leg with fat layer exposed; L89.892 Pressure ulcer of other site, stage 2; Z89.512 Acquired absence of left leg below knee | CPT/HCPCS: 99215 ==

== ENCOUNTER 2023-03-14 11:01 | Outpatient (CLI) | payer MEDICARE, BC, SELFPAY | END 2023-03-14 11:02 | disposition home or self-care (01) | LOC: WOUND 11:01 | PROVIDERS: PCP Family Medicine; Visit Provider Physician Assistant Surgical | DX: L89.313 Pressure ulcer of right buttock, stage 3 (principal); I87.311 Chronic venous hypertension (idiopathic) with ulcer of right lower extremity; L97.812 Non-pressure chronic ulcer of other part of right lower leg with fat layer exposed; L89.892 Pressure ulcer of other site, stage 2; Z89.512 Acquired absence of left leg below knee | CPT/HCPCS: 99213 ==

== ENCOUNTER 2023-03-16 11:05 | Outpatient (CLI) | payer MEDICARE, BC, SELFPAY | END 2023-03-16 11:06 | disposition home or self-care (01) | LOC: WOUND 11:05 | PROVIDERS: PCP Family Medicine; Visit Provider Surgery | DX: L89.313 Pressure ulcer of right buttock, stage 3 (principal); I87.311 Chronic venous hypertension (idiopathic) with ulcer of right lower extremity; L97.812 Non-pressure chronic ulcer of other part of right lower leg with fat layer exposed; L89.892 Pressure ulcer of other site, stage 2; Z89.512 Acquired absence of left leg below knee | CPT/HCPCS: 97597 ==

== ENCOUNTER 2023-03-21 10:14 | Outpatient (CLI) | payer MEDICARE, BC, SELFPAY ==
--- OUTSIDE RECORDS SUMMARY | 2023-03-21 10:16 | XMS_ITS | Continuity of Care Document ---
Author Name Unknown Organization [facility] Address [address] [place] [address] Phone Care Team Providers Care Hooker Laster Name Role Phone Bebo Peñaloza DO Unavailable [...] [facility], [address], [place], [address], tel:[phone] No Information 3 Jh Lagunas. [facility] [address], [place], [address], [place]. tel:[phone] Family History Family Member Type Diagnosis Age At Onset No Information Payers Payer name Insurance type Covered green party ID Authoriza tion(s) No Information Social History Type Description Quantity Date Captured Comments Sex Male Smoking Status No Information Chief Complaint And Reason For Visit No Information Reason For Referral Reason For Referral No Information History Of Present Illness Encounter Date Complaint History Of Prese nt Illness No Information Functional Status Date Functional Assessmen t No Information Instructions Date Instruction Additional Infor mation No Information Assessments Type Assessment Date No Information Patient Care Teams Name Effective Dates (start - stop) Status Members No Information
== END 2023-03-21 10:15 | disposition home or self-care (01) ==
LOC: WOUND 10:14
PROVIDERS: PCP Family Medicine; Visit Provider Surgery
DX: L89.313 Pressure ulcer of right buttock, stage 3 (principal); S91.204A Unspecified open wound of right lesser toe(s) with damage to nail, initial encounter; I87.311 Chronic venous hypertension (idiopathic) with ulcer of right lower extremity; L97.812 Non-pressure chronic ulcer of other part of right lower leg with fat layer exposed
CPT/HCPCS: 99213

== ENCOUNTER 2023-03-23 10:51 | Outpatient (CLI) | payer MEDICARE, BC, SELFPAY | END 2023-03-23 10:52 | disposition home or self-care (01) | LOC: WOUND 10:51 | PROVIDERS: PCP Family Medicine; Visit Provider Surgery | DX: I87.311 Chronic venous hypertension (idiopathic) with ulcer of right lower extremity (principal); L97.812 Non-pressure chronic ulcer of other part of right lower leg with fat layer exposed | CPT/HCPCS: 97597 ==

== ENCOUNTER 2023-03-24 11:11 | Outpatient (CLI) | payer MEDICARE, BC, SELFPAY ==
[2023-03-24 14:22] LABS: Chloride* 104 mmol/L (96-114); Potassium* 3.6 mmol/L (3.6-5.1); Sodium* 137 mmol/L (135-149)
[2023-03-24 14:25] LABS: Blood Urea Nitrogen* 39 mg/dL (7-30); Carbon Dioxide* 24 mmol/L (20-32); Cholesterol* 93 mg/dL (90-199); Creatinine* 2.6 mg/dL (0.5-1.5); Estimated Glomerular Filt Rate 25 ml/min; Triglycerides* 90 mg/dL (40-149)
[2023-03-24 14:26] LABS: Calcium* 9.2 mg/dL (8.4-10.6); HDL Cholesterol* 38 mg/dL (>=40); LDL Cholesterol Calculated 37 mg/dL (<100)
[2023-03-24 14:39] LABS: Glucose* 387 mg/dL (60-115)
== END 2023-03-24 11:12 | disposition home or self-care (01) ==
PROVIDERS: PCP Family Medicine; Visit Provider Family Medicine
DX: E11.9 Type 2 diabetes mellitus without complications (principal); E03.9 Hypothyroidism, unspecified; E78.5 Hyperlipidemia, unspecified; I10 Essential (primary) hypertension; R35.0 Frequency of micturition
CPT/HCPCS: 80048; 80061; 81015; 82043; 82570; 84439; 84443; 87086; 87186

== ENCOUNTER 2023-03-25 13:46 | Outpatient (CLI) | payer MEDICARE, BC, SELFPAY | END 2023-03-25 13:47 | disposition home or self-care (01) | LOC: WOUND 13:46 | PROVIDERS: PCP Family Medicine; Visit Provider Surgery | DX: I87.311 Chronic venous hypertension (idiopathic) with ulcer of right lower extremity (principal); L97.812 Non-pressure chronic ulcer of other part of right lower leg with fat layer exposed | CPT/HCPCS: 99212 ==

== ENCOUNTER 2023-03-28 10:35 | Outpatient (CLI) | payer MEDICARE, BC, SELFPAY | END 2023-03-28 10:36 | disposition home or self-care (01) | LOC: WOUND 10:35 | PROVIDERS: PCP Family Medicine; Visit Provider Surgery | DX: L89.313 Pressure ulcer of right buttock, stage 3 (principal); I87.311 Chronic venous hypertension (idiopathic) with ulcer of right lower extremity; L97.812 Non-pressure chronic ulcer of other part of right lower leg with fat layer exposed | CPT/HCPCS: 99212 ==

== ENCOUNTER 2023-03-30 10:21 | Outpatient (CLI) | payer MEDICARE, BC, SELFPAY | END 2023-03-30 10:22 | disposition home or self-care (01) | LOC: WOUND 10:21 | PROVIDERS: PCP Family Medicine; Visit Provider Surgery | DX: L89.313 Pressure ulcer of right buttock, stage 3 (principal); I87.311 Chronic venous hypertension (idiopathic) with ulcer of right lower extremity; L97.812 Non-pressure chronic ulcer of other part of right lower leg with fat layer exposed | CPT/HCPCS: 97597 ==

== ENCOUNTER 2023-04-01 15:04 | Outpatient (CLI) | payer MEDICARE, BC, SELFPAY | END 2023-04-01 15:05 | disposition home or self-care (01) | LOC: WOUND 15:04 | PROVIDERS: PCP Family Medicine; Visit Provider Surgery | DX: L89.313 Pressure ulcer of right buttock, stage 3 (principal); I87.311 Chronic venous hypertension (idiopathic) with ulcer of right lower extremity; L97.812 Non-pressure chronic ulcer of other part of right lower leg with fat layer exposed | CPT/HCPCS: 99213 ==

== ENCOUNTER 2023-04-04 10:11 | Outpatient (CLI) | payer MEDICARE, BC, SELFPAY | END 2023-04-04 10:12 | disposition home or self-care (01) | LOC: WOUND 10:11 | PROVIDERS: PCP Family Medicine; Visit Provider Surgery | DX: L89.313 Pressure ulcer of right buttock, stage 3 (principal); I87.311 Chronic venous hypertension (idiopathic) with ulcer of right lower extremity; L97.812 Non-pressure chronic ulcer of other part of right lower leg with fat layer exposed | CPT/HCPCS: 99212 ==

== ENCOUNTER 2023-04-06 10:56 | Outpatient (CLI) | payer MEDICARE, BC, SELFPAY | END 2023-04-06 10:57 | disposition home or self-care (01) | LOC: WOUND 10:57 | PROVIDERS: PCP Family Medicine; Visit Provider Surgery | DX: I87.311 Chronic venous hypertension (idiopathic) with ulcer of right lower extremity (principal); L97.812 Non-pressure chronic ulcer of other part of right lower leg with fat layer exposed | CPT/HCPCS: 97597 ==

== ENCOUNTER 2023-04-13 10:26 | Outpatient (CLI) | payer MEDICARE, BC, SELFPAY | END 2023-04-13 10:27 | disposition home or self-care (01) | LOC: WOUND 10:26 | PROVIDERS: PCP Family Medicine; Visit Provider Surgery | DX: L89.512 Pressure ulcer of right ankle, stage 2 (principal) | CPT/HCPCS: 97597 ==

== ENCOUNTER 2023-04-15 15:20 | Outpatient (CLI) | payer MEDICARE, BC, SELFPAY | END 2023-04-15 15:21 | disposition home or self-care (01) | LOC: WOUND 15:20 | PROVIDERS: PCP Family Medicine; Visit Provider Surgery | DX: L89.512 Pressure ulcer of right ankle, stage 2 (principal) | CPT/HCPCS: 99212 ==

== ENCOUNTER 2023-04-18 13:44 | Outpatient (CLI) | payer MEDICARE, BC, SELFPAY ==
--- OUTSIDE RECORDS SUMMARY | 2023-04-18 13:47 | XMS_ITS | Continuity of Care Document ---
Author Name Unknown Organization [facility] Address [address] [place] [address] Phone Care Team Providers Care Turntable Worker Name Role Phone Bebo Peñaloza DO Unavailable [...] [facility], [address], [place], [address], tel:[phone] No Information 3 Jh Lagunas. [facility] [address], [place], [address], [place]. tel:[phone] Family History Family Member Type Diagnosis Age At Onset No Information Payers Payer name Insurance type Covered constitution party ID Authoriza tion(s) No Information Social [...]
== END 2023-04-18 13:45 | disposition home or self-care (01) ==
LOC: WOUND 13:44
PROVIDERS: PCP Family Medicine; Visit Provider Surgery
DX: L89.512 Pressure ulcer of right ankle, stage 2 (principal)
CPT/HCPCS: 99211

== ENCOUNTER 2023-04-20 11:02 | Outpatient (CLI) | payer MEDICARE, BC, SELFPAY | END 2023-04-20 11:03 | disposition home or self-care (01) | LOC: WOUND 11:02 | PROVIDERS: PCP Family Medicine; Visit Provider Surgery | DX: I87.311 Chronic venous hypertension (idiopathic) with ulcer of right lower extremity (principal); L97.812 Non-pressure chronic ulcer of other part of right lower leg with fat layer exposed | CPT/HCPCS: 97597 ==

== ENCOUNTER 2023-05-05 11:58 | Outpatient (CLI) | payer MEDICARE, BC, SELFPAY ==
--- OUTSIDE RECORDS SUMMARY | 2023-05-05 12:02 | XMS_ITS | Continuity of Care Document ---
Author Name Unknown Organization [facility] Address [address] [place] [address] Phone Care Team Providers Care Medical Research Associate Name Role Phone Bebo Peñaloza DO Unavailable [...] [facility], [address], [place], [address], tel:[phone] No Information 3 Jh Lagunas. [facility] [address], [place], [address], [place]. tel:[phone] Family History Family Member Type Diagnosis Age [...]
[2023-05-05 14:43] LABS: Chloride* 103 mmol/L (96-114); Sodium* 136 mmol/L (135-149)
[2023-05-05 14:44] LABS: Basophils Absolute Auto 0.03 K/uL (0.00-0.30); Basophils Percent Auto 0.6 % (0.0-3.0); Eosinophils Absolute Auto 0.19 K/uL (0.00-0.50); Eosinophils Percent Auto 3.7 % (0.0-7.0); Hematocrit 42.1 % (37.0-53.0); Hemoglobin* 13.5 gm/dL (13.5-17.5); Lymphocytes Percent Auto 16.8 % (20-44); Mean Corpuscular HGB Conc 32 gm/dL (32-36); Mean Corpuscular Hemoglobin 26 pg (26-34); Mean Corpuscular Volume 82 fL (80-100); Monocytes Percent Auto 7.6 % (0.0-11.0); Neutrophils Absolute Auto 3.65 K/uL (1.7-7.0); Neutrophils Percent Auto 71.3 % (42.0-72.0); Platelet Count* 98 K/uL (140-440); Potassium* 4.5 mmol/L (3.6-5.1); RDW Coefficient of Variation % 15.2 % (11.5-15.5); Red Blood Count 5.14 m/uL (4.30-5.90); White Blood Count* 5.12 K/uL (4.50-11.00)
[2023-05-05 14:46] LABS: Creatinine* 2.8 mg/dL (0.5-1.5); Estimated Glomerular Filt Rate 23 ml/min
[2023-05-05 14:47] LABS: Anion Gap 13 mEq/L (7-15); Blood Urea Nitrogen* 52 mg/dL (7-30); Calcium* 9.9 mg/dL (8.4-10.6); Carbon Dioxide* 20 mmol/L (20-32)
[2023-05-05 15:06] LABS: Glucose* 440 mg/dL (60-115)
[2023-05-05 15:44] LABS: Slide Review Reflex Yes
[2023-05-05 15:47] LABS: Slide Review Acceptable Review (Acceptable)
[2023-05-05 16:19] LABS: Free T4 Free Thyroxine* 1.24 ng/dL (0.70-1.85)
== END 2023-05-05 11:59 | disposition home or self-care (01) ==
PROVIDERS: PCP Family Medicine; Visit Provider Family Medicine
DX: E03.9 Hypothyroidism, unspecified (principal); N39.0 Urinary tract infection, site not specified; Z94.0 Kidney transplant status; I13.0 Hypertensive heart and chronic kidney disease with heart failure and stage 1 through stage 4 chronic kidney disease, or unspecified chronic kidney disease; I50.32 Chronic diastolic (congestive) heart failure; N18.4 Chronic kidney disease, stage 4 (severe); E11.22 Type 2 diabetes mellitus with diabetic chronic kidney disease; E78.2 Mixed hyperlipidemia
CPT/HCPCS: 80048; 81015; 84439; 84443; 85025; 87086; 87186

== ENCOUNTER 2023-05-10 20:00 | Inpatient (IN) | payer MEDICARE, BC, SELFPAY ==
[2023-05-10 20:08] VITALS: BP 136/74; PULSE 59; RESP 18; TEMP 36.6; O2SAT 95; BMI 39.2
--- NOTE | 2023-05-10 22:07 | ED_ITS ---
HPI - Weakness General Date Seen: 05/10/23 Chief complaint: Weakness Stated complaint: Weakness Time Seen by Provider: 05/10/23 22:06 Source: patient and RN notes reviewed Mode of arrival: ambulatory Limitations: no limitations History of Present Illness HPI Narrative: Elinor is a 73-year-old male with multiple chronic medical issues including recent UTI, history of end-stage renal disease status post kidney transplant, hypertension, hyperlipidemia, left lower extremity amputee, history of pancreatic cancer, diabetes coming in with weakness. He has had progressive weakness over the last few days. He is sleeping when I come in the room, his significant other has went home to go to bed. He notes he has a recurrent small buttock wound which is not really painful or bothering him. He has no skin lesions that are bothering him, no sore areas of the skin. No headaches, no sore throat, no congestion. He is not been coughing, no shortness of breath, no chest pain, no abdominal pain, no nausea vomiting or diarrhea. He is not giving me any symptoms for UTI but recently reportedly had 1. He is immune compromised with immunosuppressants for his kidney transplant. He states he is just tired. I see Cipro as a medication for potential active treatment for UTI. His blood sugar was low 200s per EMS. His significant other reported to nursing staff that she felt he maybe had some slurred speech and might be concerning for a stroke. Again these symptoms are not acute in the time frame, he has been weak over 3 days. MD Complaint: generalized weakness Related Data Home Medications Medication Instructions Recorded Confirmed tacrolimus 0.5 mg capsule, 0.5 mg PO BID 12/06/22 05/10/23 immediate-release apixaban 2.5 mg tablet (Eliquis) 2.5 mg PO BID 05/10/23 05/10/23 carvedilol 25 mg tablet 25 mg PO BID 05/10/23 05/10/23 Previous Rx's Medication Instructions Recorded escitalopram oxalate 20 mg tablet 20 mg PO DAILY #90 tabs 09/14/22 mycophenolate mofetil 250 mg 750 mg (3 x 250 mg) PO BID #180 09/14/22 capsule caps pantoprazole 40 mg tablet,delayed 40 mg PO DAILY #90 tabs 09/14/22 release potassium chloride 20 mEq 20 meq PO BID #180 tabs 01/24/23 tablet,extended release rosuvastatin 10 mg tablet 10 mg PO HS #90 tabs 09/14/22 tamsulosin 0.4 mg capsule 0.8 mg (2 x 0.4 mg) PO DAILY #180 09/14/22 caps torsemide 20 mg tablet See Rx Instructions PO BID #90 tabs 09/14/22 insulin aspart U-100 100 unit/mL 15 unit (0.15 mL) subcut TIDWM #15 01/28/23 (3 mL) subcutaneous pen (Novolog mL FlexPen U-100 Insulin aspart) insulin detemir U-100 100 unit/mL 40 unit (0.4 mL) subcut HS #30 mL 01/28/23 (3 mL) subcutaneous pen insulin lispro 100 unit/mL 15 unit (0.15 mL) subcut TID #30 mL 02/14/23 subcutaneous pen (Humalog KwikPen (U-100) Insulin) pregabalin 150 mg capsule 150 mg PO BID #60 caps 03/07/23 zolpidem 10 mg tablet (Ambien) 10 mg PO QHS PRN insomnia #30 tabs 03/27/23 levothyroxine 88 mcg tablet 88 mcg PO QDAY #90 tabs 05/05/23 ciprofloxacin HCl 500 mg tablet 500 mg PO QDAY #10 tabs 05/07/23 Allergies Allergy/AdvReac Type Severity Reaction Status Date / Time lisinopril Allergy Unknown Unknown Verified 05/10/23 20:32 Review of Systems Status of ROS: Reports: 10 or more systems reviewed and unremarkable except as noted in History and below [facility] Medical History Urinary retention ?R33.9 - Retention of urine, unspecified (ICD-10) Basal cell carcinoma (BCC) of right ear ?C44.212 - Basal cell carcinoma of skin of right ear and external auricular canal (ICD-10) Swelling of lower limb ?M79.89 - Other specified soft tissue disorders (ICD-10) Primary hypertension ?I10 - Essential (primary) hypertension (ICD-10) Mixed hyperlipidemia ?E78.2 - Mixed hyperlipidemia (ICD-10) Facial basal cell cancer ?C44.310 - Basal cell carcinoma of skin of unspecified parts of face (ICD-10) Hypothyroidism ?E03.9 - Hypothyroidism, unspecified (ICD-10) Diabetic neuropathy ?E11.40 - Type 2 diabetes mellitus with diabetic neuropathy, unspecified (ICD-10) Type 2 diabetes mellitus ?E11.9 - Type 2 diabetes mellitus without complications (ICD-10) History of pancreatic cancer ?Z85.07 - Personal history of malignant neoplasm of pancreas (ICD-10) Immunocompromised, acquired ?D84.9 - Immunodeficiency, unspecified (ICD-10) CHF (congestive heart failure) ?I50.9 - Heart failure, unspecified (ICD-10) BPH (benign prostatic hyperplasia) ?N40.0 - Benign prostatic hyperplasia without lower urinary tract symptoms (ICD-10) Thrombocytopenia ?D69.6 - Thrombocytopenia, unspecified (ICD-10) Pneumonia (06/01/22) ?J18.9 - Pneumonia, unspecified organism (ICD-10) Daytime hypersomnia ?G47.10 - Hypersomnia, unspecified (ICD-10) DOVE (dyspnea on exertion) ?R06.09 - Other forms of dyspnea (ICD-10) CHANELL (obstructive sleep apnea) ?G47.33 - Obstructive sleep apnea (adult) (pediatric) (ICD-10) Skin ulcer of buttock ?L98.419 - Non-pressure chronic ulcer of buttock with unspecified severity (ICD-10) Thyroid nodule ?E04.1 - Nontoxic single thyroid nodule (ICD-10) Major depression ?F32.9 - Major depressive disorder, single episode, unspecified (ICD-10) Vitamin D deficiency (11/20/11) ?E55.9 - Vitamin D deficiency, unspecified (ICD-10) Proliferative diabetic retinopathy ?E11.3599 - Type 2 diabetes mellitus with proliferative diabetic retinopathy without macular edema, unspecified eye (ICD-10) Permanent atrial fibrillation (01/11/22) ?I48.21 - Permanent atrial fibrillation (ICD-10) Hyperparathyroidism due to renal insufficiency (01/27/10) ?N25.81 - Secondary hyperparathyroidism of renal origin (ICD-10) History of adenomatous polyp of colon (01/01/14) ?Z86.010 - Personal history of colonic polyps (ICD-10) Generalized anxiety disorder ?F41.1 - Generalized anxiety disorder (ICD-10) General patient noncompliance ?Z91.19 - Patient's noncompliance with other medical treatment and regimen (ICD-10) Erectile dysfunction (07/30/06) ?N52.9 - Male erectile dysfunction, unspecified (ICD-10) Enrolled in chronic care management ?Z78.9 - Other specified health status (ICD-10) Chronic kidney disease ?N18.9 - Chronic kidney disease, unspecified (ICD-10) Surgical History Skin cancer (03/24/21) ?C44.90 - Unspecified malignant neoplasm of skin, unspecified (ICD-10) Renal transplant recipient (2013) ?Z94.0 - Kidney transplant status (ICD-10) History of vitrectomy ?Z98.890 - Other specified postprocedural states (ICD-10) History of panretinal photocoagulation ?Z98.890 - Other specified postprocedural states (ICD-10) History of cataract extraction ?Z98.49 - Cataract extraction status, unspecified eye (ICD-10) 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 No children. 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 Grew up in [place], [place]. Wears glasses. No dentures. No hearing aids. One brother in [place]. No drugs, no alcohol, distant smoking history. Parents . Highest level of school completed/degree received: Bachelor's degree Smoking Status: Former smoker Do you use any of these nicotine containing products: None Second hand tobacco smoke exposure: No How often do you have a drink containing alcohol: never How often do you have six or more drinks on one occasion: Never AUDIT-C Alcohol total score: 0 Non-prescribed substance use: denies use Caffeine: No Little interest or pleasure in doing things: not at all Feeling down, depressed, or hopeless: not at all service: No Exam Const: Vital Signs, click to edit/add: Vital Signs - 24 hr 05/10/23 20:08 05/10/23 22:21 Temperature 97.9 F Pulse Rate [Left P ulse Oximeter] 59 L Respiratory Rate 18 Blood Pressure [Ri ght Upper Arm] 136/74 Pulse Oximetry 95 96 Oxygen Delivery Me thod Room Air Elinor is asleep lying in exam bed 1, awakens easily. Overall body habitus is obese. Sclera clear, speech sounds normal to me do not note any significant slurring or dysarthria. He has symmetrical facial function. Neck is thick but no palpable masses. Lungs are clear anteriorly and along the axilla, cannot get him to even sit upper rollover so I can listen to him posteriorly and I cannot lift him by myself. CV sounds mostly regular, I do not hear any murmur, normal S1 and S2. Abdomen is obese but soft, nontender no rebound or guarding. He has prosthetic on his left lower leg. Visualized his right lower extremity, there is some abrasions/scabs but I see no active evidence of any erythema suggesting cellulitis. Documenting provider has reviewed patient's vital signs: yes Course Course ED Course: His global weakness certainly could be infectious, metabolic. Will get portable chest x-ray, do full complement of labs and including to blood cultures, will have nursing staff catheterization for urinalysis. Will have EKG obtained, get a troponin. Reevaluation(s) Time of Reevaluation #1: 00:22 Reevaluation #1: Have reviewed with patient that there is nothing definitive in his labs at her change, creatinine may be elevated a little bit. He states he is just so weak that he can not even walk. He reports he has been taking his Cipro with all as other medicines, wonders if there could be a medication reaction. I cannot answer that for him, maybe pharmacy can look at this tomorrow. Reviewed with Elinor that we are going to be placing him in the hospital for his weakness as he cannot ambulate to go home. Consultations Consultation #1: Reviewed with hospitalist covering that we were unable to secure medsurg bed in [facility] ([place] on full divert, no beds [facility] [place] systems for medsurg). We had spoken earlier on this patient and he thought that he may benefit from being at higher level institution with multispecialty care. Did have to review this with patient as to why he was waiting down in the ED longer than anticipated. He understands that he will be placed in hospital here. Time: 01:32 Vital Signs Vital signs: Initial Vital Signs Temperature 97.9 F 05/10/23 20:08 Temperature Source Temporal Artery Scan 05/10/23 20:08 Pulse Rate 59 L 05/10/23 20:08 Respiratory Rate 18 05/10/23 20:08 Blood Pressure 136/74 05/10/23 20:08 Blood Pressure Mean 94 05/10/23 20:08 Blood Pressure Position Sitting 05/10/23 20:08 Pulse Oximetry 95 05/10/23 20:08 Oxygen Delivery Method Room Air 05/10/23 20:08 Vital Signs Temperature 97.9 F 05/10/23 20:08 Pulse Rate 59 L 05/10/23 20:08 Respiratory Rate 18 05/10/23 20:08 Blood Pressure 136/74 05/10/23 20:08 Pulse Oximetry 95 05/10/23 20:08 Oxygen Delivery Method Room Air 05/10/23 20:08 Temperature 97.9 F 05/10/23 20:08 Pulse Rate 59 L 05/10/23 20:08 Respiratory Rate 18 05/10/23 20:08 Blood Pressure 136/74 05/10/23 20:08 Pulse Oximetry 96 05/10/23 22:21 Oxygen Delivery Method Room Air 05/10/23 20:08 MDM - Weakness Lab Data Attestation: I reviewed the patient's lab results. Labs: Lab Results 05/10/23 05/10/23 05/10/23 Range/Units 22:22 22:54 23:00 WBC 5.71 (4.50-11.00) K/uL RBC 4.88 (4.30-5.90) m/uL Hgb 13.2 L (13.5-17.5) gm/dL Hct 39.8 (37.0-53.0) % MCV 82 (80-100) fL MCH 27 (26-34) pg MCHC 33 (32-36) gm/dL RDW Coeff of Benjamin 15.5 (11.5-15.5) % Plt Count 94 L (140-440) K/uL Neut % (Auto) 66.4 (42.0-72.0) % Lymph % (Auto) 19.6 L (20-44) % [place] % (Auto) 8.2 (0.0-11.0) % Eos % (Auto) 4.9 (0.0-7.0) % Baso % (Auto) 0.4 (0.0-3.0) % Neut # (Auto) 3.79 (1.7-7.0) K/uL Lymph # (Auto) 1.10 (0.90-2.90) K/uL [place] # (Auto) 0.50 (0.00-0.90) K/UL Eos # (Auto) 0.28 (0.00-0.50) K/uL Baso # (Auto) 0.02 (0.00-0.30) K/uL Abs Immat Gran (auto) 0.03 (0.00-0.30) K/uL Imm/Tot Granulo (auto) 0.5 % ESR 12 (2-15) mm/hr Sodium 132 L (135-149) mmol/L Potassium 4.6 (3.6-5.1) mmol/L Chloride 100 (96-114) mmol/L Carbon Dioxide 22 (20-32) mmol/L Anion Gap 10 (7-15) mEq/L BUN 60 H (7-30) mg/dL Creatinine 3.2 H (0.5-1.5) mg/dL Estimated Creat Clear 22.57 Estimated GFR 20 ml/min Glucose 249 H (60-115) mg/dL Lactate 1.3 (0.5-1.9) mmol/L Calcium 10.0 (8.4-10.6) mg/dL Total Bilirubin 0.9 (0.1-1.5) mg/dL AST 17 (12-35) U/L ALT 12 (4-50) U/L Alkaline Phosphatase 164 H (40-150) U/L C-Reactive Protein 1.0 (0.5-1.0) mg/dL NT-Pro-B Natriuret Pep 5370 pg/mL Total Protein 6.9 (6.0-8.3) g/dL Albumin 3.8 (3.3-5.0) g/dL Procalcitonin 0.13 (<0.50) ng/mL Urine Color Yellow (Yellow) Urine Appearance Cloudy A (Clear) Urine pH 5.5 (5.0-8.5) Ur Specific [place] 1.010 (1.000-1.030) Urine Protein 2+ A (Negative) Urine Glucose (UA) 1+ A (Negative) Urine Ketones Negative (Negative) Urine Blood Trace-intact A (Negative) Urine Nitrite Negative (Negative) Urine Bilirubin Negative (Negative) Urine Urobilinogen 0.2 (0.2-1.0) Ur Leukocyte Esterase 2+ A (Negative) Urine RBC 2-5 A (0-2) Urine WBC 25-50 A (0-5) Ur Squamous Epith Cells Few (None-Few) Urine Bacteria Moderate A (None) SARS-CoV-2 (PCR) Negative SARS-CoV-2 (Negative) Influenza Type A (PCR) Negative PCR FLU A (Negative) Influenza Type B (PCR) Negative PCR FLU B (Negative) RSV (PCR) Negative PCR RSV (Negative) Lab Acknowledgement POC Troponin I 0.02 (0.01-0.04) ng/ml 05/10/23 Range/Units 23:21 WBC (4.50-11.00) K/uL RBC (4.30-5.90) m/uL Hgb (13.5-17.5) gm/dL Hct (37.0-53.0) % MCV (80-100) fL MCH (26-34) pg MCHC (32-36) gm/dL RDW Coeff of Benjamin (11.5-15.5) % Plt Count (140-440) K/uL Neut % (Auto) (42.0-72.0) % Lymph % (Auto) (20-44) % [place] % (Auto) (0.0-11.0) % Eos % (Auto) (0.0-7.0) % Baso % (Auto) (0.0-3.0) % Neut # (Auto) (1.7-7.0) K/uL Lymph # (Auto) (0.90-2.90) K/uL [place] # (Auto) (0.00-0.90) K/UL Eos # (Auto) (0.00-0.50) K/uL Baso # (Auto) (0.00-0.30) K/uL Abs Immat Gran (auto) (0.00-0.30) K/uL Imm/Tot Granulo (auto) % ESR (2-15) mm/hr Sodium (135-149) mmol/L Potassium (3.6-5.1) mmol/L Chloride (96-114) mmol/L Carbon Dioxide (20-32) mmol/L Anion Gap (7-15) mEq/L BUN (7-30) mg/dL Creatinine (0.5-1.5) mg/dL Estimated Creat Clear Estimated GFR ml/min Glucose (60-115) mg/dL Lactate (0.5-1.9) mmol/L Calcium (8.4-10.6) mg/dL Total Bilirubin (0.1-1.5) mg/dL AST (12-35) U/L ALT (4-50) U/L Alkaline Phosphatase (40-150) U/L C-Reactive Protein (0.5-1.0) mg/dL NT-Pro-B Natriuret Pep pg/mL Total Protein (6.0-8.3) g/dL Albumin (3.3-5.0) g/dL Procalcitonin (<0.50) ng/mL Urine Color (Yellow) Urine Appearance (Clear) Urine pH (5.0-8.5) Ur Specific [place] (1.000-1.030) Urine Protein (Negative) Urine Glucose (UA) (Negative) Urine Ketones (Negative) Urine Blood (Negative) Urine Nitrite (Negative) Urine Bilirubin (Negative) Urine Urobilinogen (0.2-1.0) Ur Leukocyte Esterase (Negative) Urine RBC (0-2) Urine WBC (0-5) Ur Squamous Epith Cells (None-Few) Urine Bacteria (None) SARS-CoV-2 (PCR) (Negative) Influenza Type A (PCR) (Negative) Influenza Type B (PCR) (Negative) RSV (PCR) (Negative) Lab Acknowledgement Test Added POC Troponin I (0.01-0.04) ng/ml Imaging Data Chest x-ray: Attestation: I have reviewed the pertinent imaging results. Radiologist's impression: Patient: ELINOR ROCA Facility:?[facility] Patient ID:?[id number] Site Patient ID:?[id number]. Site :?[id number] Study:?XRay Chest PCXR-05/10/2023 10:58:39 PM Ordering Physician:?Pbomel-Alvarez Xiomara Final Report: INDICATION: Weakness TECHNIQUE: Chest radiograph 1 view COMPARISON: 01/13/2023 FINDINGS: The sensitivity and specificity of the exam are severely limited by the patient`s body habitus. Mediastinum: The mediastinum is normal in appearance. Mild to moderate stable cardiomegaly is seen. Lung: Mild pulmonary vascular congestion with bibasilar subsegmental atelectasis is noted. No sign of pleural effusion seen. No pneumothorax is identified. Bone and Soft tissue: Unremarkable for age. IMPRESSIONS: 1. Mild pulmonary vascular congestion with bibasilar subsegmental atelectasis is noted. 2. Mild to moderate stable cardiomegaly is seen. Dictated by Seng Rea MD @ 05/10/2023 11:09:13 PM Dictated by: Seng Rea MD @ 05/10/2023 23:09:19 (Electronic Signature) ECG Data Attestation: I personally reviewed and interpreted this ECG as follows: (Atrial fibrillation, 60 beats per minute. No acute ischemia. QT corrected 422 milliseconds.) ECG interpretation date: 05/11/23 ECG interpretation time: 00:38 Discharge Plan Discharge Clinical Impression: Weakness, CKD (chronic kidney disease), Urinary tract infection Patient Disposition: Admitted As Observation
[2023-05-10 22:21] VITALS: O2SAT 96
--- NOTE | 2023-05-10 22:21 | CRLHL7_ITS ---
For Patients: As a result of the Century Cures Act, medical imaging exams and procedure reports are released immediately into your electronic medical record. You may view this report before your referring provider. If you have questions, please contact your health care provider. INDICATION: Weakness TECHNIQUE: Chest radiograph 1 view COMPARISON: 01/13/2023 FINDINGS: The sensitivity and specificity of the exam are severely limited by the patient`s body habitus. Mediastinum: The mediastinum is normal in appearance. Mild to moderate stable cardiomegaly is seen. Lung: Mild pulmonary vascular congestion with bibasilar subsegmental atelectasis is noted. No sign of pleural effusion seen. No pneumothorax is identified. Bone and Soft tissue: Unremarkable for age. IMPRESSIONS: 1. Mild pulmonary vascular congestion with bibasilar subsegmental atelectasis is noted. 2. Mild to moderate stable cardiomegaly is seen. Dictated by Seng Rea MD @ 05/10/2023 11:09:13 PM Dictated by: Seng Rea MD @ 05/10/2023 23:09:19 (Electronically Signed)
--- OUTSIDE RECORDS SUMMARY | 2023-05-10 22:23 | XMS_ITS | Continuity of Care Document ---
Author Name Unknown Organization [facility] Address [address] [address] [place] [address] Phone Care Team Providers Care Grinder Operator Surface Tool Name Role Phone No Information Unavailable Unavailable Procedures Procedure Date Ugi Endo; W/us Guid Asp/bx Subsqt Hosp-da E&m Minr Compl Init Hosp-da E&m Mod Severity 1 Advance Directives Directive Yes / No Effective Date File Name No Information Encounters Encounter Description Practice Location Reason(s) For Visit Diagnoses Date Provider Providers Copied on Encounter [facility], [address] [address], [place], [id number], [place] tel:[phone] No Information No Information [facility], [address] [address], [place], [id number], [place] tel:[phone] [facility] No Information Darling Cannon. [address] [facility], [facility] [address], [place], [place], [id number], [place]. tel:[phone] Referring Provider: Davis Hastings MD, [address] [facility] [address], [place], [address] . tel:[phone] [facility], [address] [address], [place], [id number], [place] tel:[phone] [facility] Pancreas cyst Sunny Franco. [address] [facility], [facility] [address] [place] [address], [id number], [place]. tel:[phone] [facility], [address] [address], [place], [id number], [place] tel:[phone] [facility] Pancreas cyst 1 Nesset OFFICE MACHINE SERVICE SUPERVISOR Joan. [address] [facility], [address] [address], [place], [place], [id number], [place]. tel:[phone] [facility], [address] [address], [place], [id number], [place] tel:[phone] [facility] Pancreas cyst 1 Nesset OFFICE MACHINE SERVICE SUPERVISOR Joan. [address], [id number], [place]. tel:[phone] Subsqt Hosp-da E&m Minr Compl [facility], [address] [address], [place], [id number], [place] tel:[phone] [facility] No Information 1 Nesset OFFICE MACHINE SERVICE SUPERVISOR Joan. [address] [address], [place], [place], [id number], [place]. tel:[phone] Referring Provider: Alexandria Fletcher, [address] [place] [address], [address]. tel:[phone] Init Hosp-da E&m Mod Severity [facility] JA, [address] [address], [place], [id number], [place] tel:[phone] [facility] No Information 1 Prem Alfaro. [address], [id number], [place]. tel:[phone] Referring Provider: Alexandria Banuelos CNP M, [address] [place] [address], [address]. tel:[phone] Family History Family Member Type Diagnosis Age At Onset No Information Immunizations Vaccine Date Status Comments SARS-COV-2 (COVID-19) vaccin e, mRNA, spike protein, LNP, preservative free, 100 mcg/0.5mL dose administered Note: [facility] bi-direct ional interface ; Source: Other Registry SARS-COV-2 (COVID-19) vaccin e, mRNA, spike protein, LNP, preservative free, 100 mcg/0.5mL dose administered Note: [facility] bi-direct ional interface ; Source: Other Registry influenza virus vaccine, unspecified formulation administered Note: [facility] bi-di rectional interface ; Source: Other Registry influenza, high dose seasona l, preservative-free administered Note: [facility] bi-direct ional interface ; Source: Other Registry tetanus and diphtheria toxoi ds, adsorbed, preservative free, for adult use (2 Lf of tetanus toxoid and 2 Lf of diphtheria toxoid) administered Note: [facility] bi-direct ional interface ; Source: Other Registry Seasonal trivalent influenza vaccine, adjuvanted, preservative free administered Note: [facility] bi-direct ional interface ; Source: Other Registry Seasonal trivalent influenza vaccine, adjuvanted, preservative free administered Note: [facility] bi-direct ional interface ; Source: Other Registry influenza, high dose seasona l, preservative-free administered Note: [facility] bi-direct ional interface ; Source: Other Registry Prevnar 13 administered Note: [facility] bi-d irectional interface ; Source: Other Registry Afluria Qd administered Note: [facility] bi-directional interface ; Source: Other Registry Afluria Qd administered Note: [facility] bi-directional interface ; Source: Other Registry Influenza, seasonal, injecta ble, preservative free administered Note: [facility] bi-direct ional interface ; Source: Other Registry Pneumovax 23 administered Note: [facility] bi-d irectional interface ; Source: Other Registry Influenza, seasonal, injecta ble, preservative free administered Note: [facility] bi-direct ional interface ; Source: Other Registry Influenza, seasonal, injectable administe red Note: [facility] bi- directional interface ; Source: Other Registry Payers Payer name Insurance type Covered constitution party ID Authoriza tialvarez(s) No Information Social History Type Description Quantity Date Captured Comments Sex Male Smoking Status No Information Chief Complaint And Reason For Visit No Information Reason For Referral Reason For Referral No Information Plan Of Treatment Date Type Action Status Referral Ordered: EUS Appointment date/timeframe: 02/05/2021 ordered Referral Ordered: MRI Abdomen WITHOUT And WITH Contrast Appointment date/timeframe: 01/05/2021 ordered Referral Ordered: MRI Abdomen WITH Contrast Appointment date/timeframe: 01/01/2021 ordered History Of Present Illness Encounter Date Complaint History Of Prese nt Illness No Information Functional Status Date Functional Assessmen t No Information Instructions Date Instruction Additional Infor mation No Information Assessments Type Assessment Date No Information Patient Care Teams Name Effective Dates (start - stop) Status Members No Information
--- OUTSIDE RECORDS SUMMARY | 2023-05-10 22:23 | XMS_ITS | Continuity of Care Document ---
Author Name Unknown Organization [facility] Address [address] [place] [address] Phone Care Team Providers Care Validation Manager Name Role Phone Bebo Peñaloza DO Unavailable [...] [facility], [address], [place], [address], tel:[phone] No Information 3 Jh Lagunas. [facility] [address], [place], [address], [place]. tel:[phone] Family History Family Member Type Diagnosis Age At Onset No Information Payers Payer name Insurance type Covered republican ID Authoriza tion(s) No Information Social History [...]
[2023-05-10 23:18] LABS: Lactate* 1.3 mmol/L (0.5-1.9)
[2023-05-10 23:20] LABS: Troponin, Point-of-Care* 0.02 ng/ml (0.01-0.04)
[2023-05-10 23:23] LABS: Basophils Absolute Auto 0.02 K/uL (0.00-0.30); Basophils Percent Auto 0.4 % (0.0-3.0); Eosinophils Absolute Auto 0.28 K/uL (0.00-0.50); Eosinophils Percent Auto 4.9 % (0.0-7.0); Hematocrit 39.8 % (37.0-53.0); Hemoglobin* 13.2 gm/dL (13.5-17.5); Immature Granulocytes Abs Auto 0.03 K/uL (0.00-0.30); Immature Granulocytes Pct Auto 0.5 %; Lymphocytes Percent Auto 19.6 % (20-44); Mean Corpuscular HGB Conc 33 gm/dL (32-36); Mean Corpuscular Hemoglobin 27 pg (26-34); Mean Corpuscular Volume 82 fL (80-100); Monocytes Percent Auto 8.2 % (0.0-11.0); Neutrophils Absolute Auto 3.79 K/uL (1.7-7.0); Neutrophils Percent Auto 66.4 % (42.0-72.0); Platelet Count* 94 K/uL (140-440); RDW Coefficient of Variation % 15.5 % (11.5-15.5); Red Blood Count 4.88 m/uL (4.30-5.90); White Blood Count* 5.71 K/uL (4.50-11.00)
[2023-05-10 23:32] LABS: Appearance Urine Cloudy (Clear); Bilirubin Urine Negative (Negative); Blood Urine Trace-intact (Negative); Color Urine Yellow (Yellow); Glucose Urine 1+ (Negative); Ketones Urine Negative (Negative); Leukocyte Esterase Urine 2+ (Negative); Nitrite Urine Negative (Negative); Protein Urine 2+ (Negative); Urobilinogen Urine 0.2 (0.2-1.0); pH Urine 5.5 (5.0-8.5)
[2023-05-10 23:41] LABS: Albumin* 3.8 g/dL (3.3-5.0); Chloride* 100 mmol/L (96-114); Sodium* 132 mmol/L (135-149)
[2023-05-10 23:42] LABS: Potassium* 4.6 mmol/L (3.6-5.1)
[2023-05-10 23:43] LABS: Slide Review Reflex No
[2023-05-10 23:44] LABS: Alanine Aminotransferase* 12 U/L (4-50); Alkaline Phosphatase* 164 U/L (40-150); Anion Gap 10 mEq/L (7-15); Aspartate Amino Transferase* 17 U/L (12-35); Bilirubin Total* 0.9 mg/dL (0.1-1.5); Blood Urea Nitrogen* 60 mg/dL (7-30); Carbon Dioxide* 22 mmol/L (20-32); Creatinine* 3.2 mg/dL (0.5-1.5); Est. Creatinine Clearance* 22.57; Estimated Glomerular Filt Rate 20 ml/min; Glucose* 249 mg/dL (60-115); Total Protein* 6.9 g/dL (6.0-8.3)
[2023-05-10 23:44] LABS: Bacteria Urine Moderate; Squamous Epithelial Cell Urine Few (None-Few); WBC Urine 25-50 (0-5)
[2023-05-11] VITALS (8 sets, daily range): BP systolic 113–153; BP diastolic 54–80; PULSE 56–85; RESP 16–20; TEMP 36.4–36.9; O2SAT 92–98; BMI 39.0
[2023-05-11] LABS: NT Pro B Type NatriureticPept* 5370 pg/mL
[2023-05-11 00:05] LABS: PCR FLU A Negative PCR FLU A (Negative); PCR FLU B Negative PCR FLU B (Negative); PCR RSV Negative PCR RSV (Negative)
[2023-05-11 00:06] LABS: Procalcitonin* 0.13 ng/mL (<0.50)
[2023-05-11 00:08] LABS: Erythrocyte SedimentationRate* 12 mm/hr (2-15); SARS PCR* Negative SARS-CoV-2 (Negative)
--- NOTE | 2023-05-11 01:00 | ED.NURSE ---
Report given to BOGDAN Sandhu. Pt will transfer to [facility] on med/surg. Pt in stable condition upon transfer. All questions answered. All belongings with patient upon discharge from ED.
--- NOTE | 2023-05-11 01:41 | P.IMHP_ITS ---
Hospitalist- H&P: NEMO History of Present Illness Date Seen: 05/11/23 Chief complaint: Weakness Narrative: Diego Guthrie is a 73 year old male with multiple chronic medical issues including recent UTI, history of end-stage renal disease status post kidney transplant, hypertension, hyperlipidemia, left lower extremity amputee, history of pancreatic cancer, diabetes coming in with weakness. He has had progressive weakness over the last few days along with exacerbation of chronic back pain with transferring. On interview, the patient is not a great historian, but he does not seem to have any focal symptoms, simply fatigue and weakness and inability to ambulate. No chest pain, no sob, no abdominal pain. He does complain of chronic back pain that has been exacerbated the last few days due to difficulty transferring. He ambulates with a walker at baseline despite his left leg BKA, using a prosthesis. He denies fevers and chills. Denies any sick contacts, although his partner just returned from a trip to [facility]. He says that she is not sick, although he is not too clear on that fact. In the ED, his workup is rather unremarkable. His CXR shows perhaps some pulmonary edema, although he does not complain of sob, no hypoxia. He does have persistent pyuria, and he was prescribed ciprofloxacin on 05/05, but he states he only has taken about 2-3 doses. Cultures growing Serratia that is sensitive. Due to weakness and inability to ambulate, he will be admitted for home safety assessment. of note, he is COVD negative. Review of Systems Status of ROS: Reports: 10 or more systems reviewed and unremarkable except as noted in History and below [facility] Medical History Urinary retention ?R33.9 - Retention of urine, unspecified (ICD-10) Basal cell carcinoma (BCC) of right ear ?C44.212 - Basal cell carcinoma of skin of right ear and external auricular canal (ICD-10) Swelling of lower limb ?M79.89 - Other specified soft tissue disorders (ICD-10) Primary hypertension ?I10 - Essential (primary) hypertension (ICD-10) Mixed hyperlipidemia ?E78.2 - Mixed hyperlipidemia (ICD-10) Facial basal cell cancer ?C44.310 - Basal cell carcinoma of skin of unspecified parts of face (ICD-10) Hypothyroidism ?E03.9 - Hypothyroidism, unspecified (ICD-10) Diabetic neuropathy ?E11.40 - Type 2 diabetes mellitus with diabetic neuropathy, unspecified (ICD-10) Type 2 diabetes mellitus ?E11.9 - Type 2 diabetes mellitus without complications (ICD-10) History of pancreatic cancer ?Z85.07 - Personal history of malignant neoplasm of pancreas (ICD-10) Immunocompromised, acquired ?D84.9 - Immunodeficiency, unspecified (ICD-10) CHF (congestive heart failure) ?I50.9 - Heart failure, unspecified (ICD-10) BPH (benign prostatic hyperplasia) ?N40.0 - Benign prostatic hyperplasia without lower urinary tract symptoms (ICD-10) Thrombocytopenia ?D69.6 - Thrombocytopenia, unspecified (ICD-10) Pneumonia (06/01/22) ?J18.9 - Pneumonia, unspecified organism (ICD-10) Daytime hypersomnia ?G47.10 - Hypersomnia, unspecified (ICD-10) DOVE (dyspnea on exertion) ?R06.09 - Other forms of dyspnea (ICD-10) CHANELL (obstructive sleep apnea) ?G47.33 - Obstructive sleep apnea (adult) (pediatric) (ICD-10) Skin ulcer of buttock ?L98.419 - Non-pressure chronic ulcer of buttock with unspecified severity (ICD-10) Thyroid nodule ?E04.1 - Nontoxic single thyroid nodule (ICD-10) Major depression ?F32.9 - Major depressive disorder, single episode, unspecified (ICD-10) Vitamin D deficiency (11/20/11) ?E55.9 - Vitamin D deficiency, unspecified (ICD-10) Proliferative diabetic retinopathy ?E11.3599 - Type 2 diabetes mellitus with proliferative diabetic retinopathy without macular edema, unspecified eye (ICD-10) Permanent atrial fibrillation (01/11/22) ?I48.21 - Permanent atrial fibrillation (ICD-10) Hyperparathyroidism due to renal insufficiency (01/27/10) ?N25.81 - Secondary hyperparathyroidism of renal origin (ICD-10) History of adenomatous polyp of colon (01/01/14) ?Z86.010 - Personal history of colonic polyps (ICD-10) Generalized anxiety disorder ?F41.1 - Generalized anxiety disorder (ICD-10) General patient noncompliance ?Z91.19 - Patient's noncompliance with other medical treatment and regimen (ICD-10) Erectile dysfunction (07/30/06) ?N52.9 - Male erectile dysfunction, unspecified (ICD-10) Enrolled in chronic care management ?Z78.9 - Other specified health status (ICD-10) Chronic kidney disease ?N18.9 - Chronic kidney disease, unspecified (ICD-10) Surgical History Skin cancer (03/24/21) ?C44.90 - Unspecified malignant neoplasm of skin, unspecified (ICD-10) Renal transplant recipient (2013) ?Z94.0 - Kidney transplant status (ICD-10) History of vitrectomy ?Z98.890 - Other specified postprocedural states (ICD-10) History of panretinal photocoagulation ?Z98.890 - Other specified postprocedural states (ICD-10) History of cataract extraction ?Z98.49 - Cataract extraction status, unspecified eye (ICD-10) 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 No children. 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 Grew up in [place], [place]. Wears glasses. No dentures. No hearing aids. One brother in [place]. No drugs, no alcohol, distant smoking history. Parents . Highest level of school completed/degree received: Bachelor's degree Smoking Status: Former smoker Do you use any of these nicotine containing products: None Second hand tobacco smoke exposure: No How often do you have a drink containing alcohol: never How often do you have six or more drinks on one occasion: Never AUDIT-C Alcohol total score: 0 Non-prescribed substance use: denies use Caffeine: No Little interest or pleasure in doing things: not at all Feeling down, depressed, or hopeless: not at all service: No Meds Home Medications and Allergies Home Medications Medication Instructions Recorded Confirmed Type tacrolimus 0.5 mg capsule, 0.5 mg PO BID 12/06/22 05/10/23 History immediate-release apixaban 2.5 mg tablet (Eliquis) 2.5 mg PO BID 05/10/23 05/10/23 History carvedilol 25 mg tablet 25 mg PO BID 05/10/23 05/10/23 History Allergies Allergy/AdvReac Type Severity Reaction Status Date / Time lisinopril Allergy Unknown Unknown Verified 05/10/23 20:32 Exam Narrative: Exam Narrative: GEN: AA, NAD, obese HEENT: normocephalic, atraumatic Neck: supple, no masses, no JVD CVS: S1 S2 RRR Lungs: CTA b/l Abd: soft, ND, NT, obese Ext: left BKA, no sore, no open wounds, 1-2+ edema right foot Skin: no rashes, no lesions Neuro: no gross focal motor deficits Psych: normal affect Const: Vital Signs, click to edit/add: Vital Signs - 24 hr 05/10/23 20:08 05/10/23 22:21 Temperature 97.9 F Pulse Rate [Left P ulse Oximeter] 59 L Respiratory Rate 18 Blood Pressure [Ri ght Upper Arm] 136/74 Pulse Oximetry 95 96 Oxygen Delivery Me thod Room Air Hospitalist - H&P: Result Labs Labs: Short CBC 05/10/23 Range/Units 22:54 WBC 5.71 (4.50-11.00) K/uL Hgb 13.2 L (13.5-17.5) gm/dL Hct 39.8 (37.0-53.0) % Plt Count 94 L (140-440) K/uL BMP 05/10/23 22:54 Sodium 132 L Potassium 4.6 Chloride 100 Carbon Dioxide 22 BUN 60 H Creatinine 3.2 H Glucose 249 H Calcium 10.0 Liver Function 05/10/23 Range/Units 22:54 Total Bilirubin 0.9 (0.1-1.5) mg/dL AST 17 (12-35) U/L ALT 12 (4-50) U/L Alkaline Phosphatase 164 H (40-150) U/L Albumin 3.8 (3.3-5.0) g/dL Urine 05/10/23 Range/Units 23:00 Urine Color Yellow (Yellow) Urine Appearance Cloudy A (Clear) Urine pH 5.5 (5.0-8.5) Ur Specific [place] 1.010 (1.000-1.030) Urine Protein 2+ A (Negative) Urine Glucose (UA) 1+ A (Negative) Assessment and Plan Assessment and plan (1) Weakness: Status: Acute Assessment and Plan: -uncertain etiology, likely multifactorial, perhaps persistent UTI -will give ceftriaxone -follow urine/blood culture -PT/OT consult (2) CKD (chronic kidney disease): Status: Acute Assessment and Plan: -certainly seems to be at baseline, no evidence of acute decompensation -monitor renal function and UOP (3) UTI (urinary tract infection): Status: Acute Assessment and Plan: -recently treated with cipro with Serration sp which was sensitive -persistent pyuria, will give ceftriaxone IV -follow repeat cultures (4) Urinary retention: Status: Acute Assessment and Plan: -flomax (5) Hypertension: Status: Acute Assessment and Plan: -stable, continue home meds when med rec completed (6) Hyperlipidemia: Status: Acute (7) CHF (congestive heart failure): Status: Chronic Assessment and Plan: -CXR with some congestion, but patient appears intravascularly dry -no evidence of overt volume overload, BNP is 5000 but has been much higher in the past (8) BPH (benign prostatic hyperplasia): Problem comment: Stable on Flomax. Status: Chronic (9) AV fistula: Problem comment: right arm Status: Acute Assessment and Plan: -available if need be -patient is ESRD s/p kidney transplantation (10) Hyponatremia: Status: Acute Assessment and Plan: -Na 132, likely intravascularly depleted but CXR with congestion -will hold aggressive IVFs -encouarage PO intake (11) Type 2 diabetes mellitus: Status: Acute Assessment and Plan: -sliding scale coverage as needed
[2023-05-11 03:59] LABS: Basophils Absolute Auto 0.01 K/uL (0.00-0.30); Basophils Percent Auto 0.2 % (0.0-3.0); Eosinophils Absolute Auto 0.27 K/uL (0.00-0.50); Eosinophils Percent Auto 4.7 % (0.0-7.0); Hematocrit 38.7 % (37.0-53.0); Hemoglobin* 12.7 gm/dL (13.5-17.5); Immature Granulocytes Abs Auto 0.01 K/uL (0.00-0.30); Immature Granulocytes Pct Auto 0.2 %; Lymphocytes Absolute Auto 1.29 K/uL (0.90-2.90); Lymphocytes Percent Auto 22.7 % (20-44); Mean Corpuscular HGB Conc 33 gm/dL (32-36); Mean Corpuscular Hemoglobin 27 pg (26-34); Mean Corpuscular Volume 81 fL (80-100); Monocytes Percent Auto 8.8 % (0.0-11.0); Neutrophils Absolute Auto 3.61 K/uL (1.7-7.0); Neutrophils Percent Auto 63.4 % (42.0-72.0); Platelet Count* 87 K/uL (140-440); RDW Coefficient of Variation % 15.2 % (11.5-15.5); Red Blood Count 4.76 m/uL (4.30-5.90); Slide Review Reflex No; White Blood Count* 5.69 K/uL (4.50-11.00)
[2023-05-11] MEDS: cefTRIAXone 1 GM in 0.9 % SODIUM CHLORIDE Mini-bag 100 ML IVPB (04:05)
[2023-05-11] MEDS: ACETAMINOPHEN 325 MG TABLET PO ×2 (04:06→10:05)
[2023-05-11] MEDS: SODIUM CHLORIDE 0.9 % (FLUSH) 10 ML SYRINGE 5 ML IVF ×3 (04:09→20:46)
[2023-05-11 04:11] LABS: Chloride* 103 mmol/L (96-114); Potassium* 4.5 mmol/L (3.6-5.1); Sodium* 134 mmol/L (135-149)
[2023-05-11 04:13] LABS: Creatinine* 3.3 mg/dL (0.5-1.5); Est. Creatinine Clearance* 21.88; Estimated Glomerular Filt Rate 19 ml/min
[2023-05-11 04:14] LABS: Anion Gap 7 mEq/L (7-15); Blood Urea Nitrogen* 62 mg/dL (7-30); Calcium* 9.7 mg/dL (8.4-10.6); Carbon Dioxide* 24 mmol/L (20-32); Glucose* 309 mg/dL (60-115)
--- NOTE | 2023-05-11 07:33 | PC.NURSE ---
Pt is alert and oriented x3. Pt reports 10/10 pain in back, pain managed with PRN medications. Pt denies chest pain, SOB and N/V. SOB is noted with exertion. Pt has restricted right extremity due to fistula on right forearm. Pt is voiding via urinal and had one episode of incontinence overnight bed sheets were changed and pt was cleaned up. Pt has right buttocks ulcer covered with meplex that is CDI. Barrier cream applied to groin and panace due to reddness. Pt reported unable to stand and refused attempt when asked to stand for scale. Pt has left leg prosthetic for below knee amputation. Pt slept intermittently throughout night.
[2023-05-11] MEDS: APIXABAN 5 MG TABLET 2.5 MG PO ×2 (09:20→20:45)
[2023-05-11] MEDS: TAMSULOSIN HCL 0.4 MG CAPSULE 0.8 MG PO (09:23)
[2023-05-11] MEDS: TACROLIMUS 0.5 MG CAPSULE PO ×2 (09:26→20:46)
[2023-05-11] MEDS: mycophenolate mofetiL 250 MG CAPSULE 750 MG PO ×2 (09:26→20:44)
[2023-05-11] MEDS: LEVOTHYROXINE 88 MCG TABLET PO (10:56)
[2023-05-11] MEDS: PREGABALIN 75 MG CAPSULE 150 MG PO ×2 (10:56→20:45)
[2023-05-11] MEDS: OMEPRAZOLE 20 MG CAPSULE DR 40 MG PO (10:57)
--- NOTE | 2023-05-11 12:03 | P.IMPN_ITS ---
Progress Note: A&P Assessment and plan (1) UTI (urinary tract infection): Problem details: - on Ceftriaxone (05/11) Status: Acute (2) Weakness: Problem details: - likely multifactorial (UTI, CHF exacerbation, multiple comorbidities) - urine culture pending, TTE pending - therapies following Status: Acute (3) CKD (chronic kidney disease): Problem details: - with MICHELLE - baseline creatinine ~2.6, current creatinine 3.3 - h/o renal transplant remotely - continue anti-rejection meds, follow closely Status: Acute (4) Type 2 diabetes mellitus: Problem details: - continue home insulin, accuchecks, sliding scale Status: Acute (5) Hypertension: Problem details: - age appropriate control, continue home medications Status: Acute (6) Hyperlipidemia: Status: Acute (7) BPH (benign prostatic hyperplasia): Problem details: - Stable on Flomax Status: Chronic (8) AV fistula: Problem details: - right arm Status: Acute (9) Hyponatremia: Problem details: - mild, normal when corrected for hyperglycemia Status: Acute Time Spent With Patient Total time spent: - per above - Apixaban for ppx - may need SNF upon d/c, patient plans to refuse this recommendation - partner Tete updated at bedside, questions answered Subjective Date Seen: 05/11/23 Interval history: Latrell was admitted last night for acute on chronic weakness with concern for UTI. This morning, he continues to feel weak. He has no other concerns for hospitalist team. His last urine culture grew Serratia (05/05/23). Exam Narrative: Exam Narrative: GEN: Alert and answering questions appropriately, sitting comfortably in bed HEENT: EOMIs bilaterally, no scleral icterus CV: RRR, No concerning murmurs R: No concerning wheezing, no tachypnea Ext: L BKA, small skin breakdown RLE not formally examined (covered) Skin: No concerning skin lesions or rashes on exposed skin; nursing staff following buttock lesion Neuro: No facial droop, intermittent resting tremor BUE (R>L) Psych: Flat affect, intermittently slow with word finding (partner notes this is close to baseline) Const: Vital Signs, click to edit/add: Vital Signs - 24 hr 05/10/23 20:08 05/10/23 22:21 05/11/23 01:41 Temperature 97.9 F 97.9 F Pulse Rate [Left P ulse Oximeter] 59 L 63 Pulse Rate [Pulse Oximeter] Respiratory Rate 18 18 Blood Pressure [Le ft Arm] Blood Pressure [Ri ght Upper Arm] 136/74 122/74 Pulse Oximetry 95 96 96 Oxygen Delivery Me thod Room Air Room Air 05/11/23 03:00 05/11/23 05:09 05/11/23 05:09 Temperature 97.6 F 97.6 F Pulse Rate [Left P ulse Oximeter] Pulse Rate [Pulse Oximeter] 60 66 Respiratory Rate 18 18 18 Blood Pressure [Le ft Arm] 142/76 H 152/76 H Blood Pressure [Ri ght Upper Arm] Pulse Oximetry 96 96 96 Oxygen Delivery Me thod Room Air Room Air Room Air 05/11/23 07:00 05/11/23 07:00 Temperature 97.5 F L Pulse Rate [Left P ulse Oximeter] Pulse Rate [Pulse Oximeter] 64 64 Respiratory Rate 20 20 Blood Pressure [Le ft Arm] 153/71 H Blood Pressure [Ri ght Upper Arm] Pulse Oximetry 92 Oxygen Delivery Nj thod Room Air Labs Labs: Laboratory Results - last 24 hr 05/10/23 05/10/23 05/10/23 22:22 22:54 23:00 WBC 5.71 RBC 4.88 Hgb 13.2 L Hct 39.8 MCV 82 MCH 27 MCHC 33 RDW Coeff of Benjamin 15.5 Plt Count 94 L Neut % (Auto) 66.4 Lymph % (Auto) 19.6 L [place] % (Auto) 8.2 Eos % (Auto) 4.9 Baso % (Auto) 0.4 Neut # (Auto) 3.79 Lymph # (Auto) 1.10 [place] # (Auto) 0.50 Eos # (Auto) 0.28 Baso # (Auto) 0.02 Abs Immat Gran (auto) 0.03 Imm/Tot Granulo (auto) 0.5 ESR 12 Sodium 132 L Potassium 4.6 Chloride 100 Carbon Dioxide 22 Anion Gap 10 BUN 60 H Creatinine 3.2 H Estimated Creat Clear 22.57 Estimated GFR 20 Glucose 249 H Lactate 1.3 Calcium 10.0 Total Bilirubin 0.9 AST 17 ALT 12 Alkaline Phosphatase 164 H C-Reactive Protein 1.0 NT-Pro-B Natriuret Pep 5370 Total Protein 6.9 Albumin 3.8 Procalcitonin 0.13 Urine Color Yellow Urine Appearance Cloudy A Urine pH 5.5 Ur Specific [place] 1.010 Urine Protein 2+ A Urine Glucose (UA) 1+ A Urine Ketones Negative Urine Blood Trace-intact A Urine Nitrite Negative Urine Bilirubin Negative Urine Urobilinogen 0.2 Ur Leukocyte Esterase 2+ A Urine RBC 2-5 A Urine WBC 25-50 A Ur Squamous Epith Cells Few Urine Bacteria Moderate A SARS-CoV-2 (PCR) Negative SARS-CoV-2 Influenza Type A (PCR) Negative PCR FLU A Influenza Type B (PCR) Negative PCR FLU B RSV (PCR) Negative PCR RSV Lab Acknowledgement POC Troponin I 0.02 05/10/23 05/11/23 23:21 03:50 WBC 5.69 RBC 4.76 Hgb 12.7 L Hct 38.7 MCV 81 MCH 27 MCHC 33 RDW Coeff of Benjamin 15.2 Plt Count 87 L Neut % (Auto) 63.4 Lymph % (Auto) 22.7 [place] % (Auto) 8.8 Eos % (Auto) 4.7 Baso % (Auto) 0.2 Neut # (Auto) 3.61 Lymph # (Auto) 1.29 [place] # (Auto) 0.50 Eos # (Auto) 0.27 Baso # (Auto) 0.01 Abs Immat Gran (auto) 0.01 Imm/Tot Granulo (auto) 0.2 ESR Sodium 134 L Potassium 4.5 Chloride 103 Carbon Dioxide 24 Anion Gap 7 BUN 62 H Creatinine 3.3 H Estimated Creat Clear 21.88 Estimated GFR 19 Glucose 309 H Lactate Calcium 9.7 Total Bilirubin AST ALT Alkaline Phosphatase C-Reactive Protein NT-Pro-B Natriuret Pep Total Protein Albumin Procalcitonin Urine Color Urine Appearance Urine pH Ur Specific [place] Urine Protein Urine Glucose (UA) Urine Ketones Urine Blood Urine Nitrite Urine Bilirubin Urine Urobilinogen Ur Leukocyte Esterase Urine RBC Urine WBC Ur Squamous Epith Cells Urine Bacteria SARS-CoV-2 (PCR) Influenza Type A (PCR) Influenza Type B (PCR) RSV (PCR) Lab Acknowledgement Test Added POC Troponin I
--- NOTE | 2023-05-11 18:55 | PC.NURSE ---
Patient pleasant and cooperative. Sleeping on and off today, mostly this afternoon after therapy. Transferred with two assist. Stood up at bedside and used urinal. Continent of urine. Large void this am of 550ml and small void this afternoon of 100ml. Patient requesting to try using commode after dinner. Urine is clear yellow with no odor. He has had no complaints of urinary discomfort. Patient c/o back and neck pain. PRN Tylenol was given and effective. Reported abdominal pain this am when elevating HOB but has had no further c/o abdominal pain. BS active x4. Passing gas. Afebrile. Tolerating regular diet.
--- NOTE | 2023-05-11 19:44 | PC.NURSE ---
Patient voided on toilet, unable to measure, post void bladder scan done and showed 41cc.
[2023-05-11] MEDS: carvediloL 25 MG TABLET PO (20:45)
[2023-05-11] MEDS: ROSUVASTATIN CALCIUM 10 MG TABLET PO (20:45)
[2023-05-12 03:35] VITALS: BP 140/86; PULSE 65; RESP 16; TEMP 36.7; O2SAT 97
[2023-05-12] MEDS: SODIUM CHLORIDE 0.9 % (FLUSH) 10 ML SYRINGE 5 ML IVF ×3 (03:36→21:01)
[2023-05-12] MEDS: cefTRIAXone 1 GM in 0.9 % SODIUM CHLORIDE Mini-bag 100 ML IVPB (03:36)
[2023-05-12 06:27] LABS: Basophils Absolute Auto 0.02 K/uL (0.00-0.30); Basophils Percent Auto 0.4 % (0.0-3.0); Eosinophils Absolute Auto 0.28 K/uL (0.00-0.50); Eosinophils Percent Auto 5.8 % (0.0-7.0); Hematocrit 40.9 % (37.0-53.0); Hemoglobin* 13.1 gm/dL (13.5-17.5); Mean Corpuscular HGB Conc 32 gm/dL (32-36); Mean Corpuscular Hemoglobin 27 pg (26-34); Mean Corpuscular Volume 83 fL (80-100); Neutrophils Absolute Auto 2.87 K/uL (1.7-7.0); Neutrophils Percent Auto 59.8 % (42.0-72.0); Platelet Count* 93 K/uL (140-440); RDW Coefficient of Variation % 15.8 % (11.5-15.5); Red Blood Count 4.95 m/uL (4.30-5.90)
[2023-05-12 06:36] LABS: Chloride* 108 mmol/L (96-114); Potassium* 4.4 mmol/L (3.6-5.1); Sodium* 140 mmol/L (135-149)
[2023-05-12 06:38] LABS: Creatinine* 3.5 mg/dL (0.5-1.5); Est. Creatinine Clearance* 20.63; Estimated Glomerular Filt Rate 18 ml/min
[2023-05-12 06:39] LABS: Anion Gap 12 mEq/L (7-15); Blood Urea Nitrogen* 66 mg/dL (7-30); Calcium* 9.9 mg/dL (8.4-10.6); Carbon Dioxide* 20 mmol/L (20-32); Glucose* 331 mg/dL (60-115)
[2023-05-12] MEDS: OMEPRAZOLE 20 MG CAPSULE DR 40 MG PO (06:39)
[2023-05-12] MEDS: LEVOTHYROXINE 88 MCG TABLET PO (06:39)
[2023-05-12 07:00] VITALS: BP 164/96; PULSE 71; RESP 18; TEMP 36.5; O2SAT 93
[2023-05-12 07:28] LABS: Slide Review Reflex No
--- NOTE | 2023-05-12 07:52 | PC.NURSE ---
Pt is alert and oriented x3. Afebrile. Pt denies pain, chest pain, and N/V. Meplex on right buttock?is CDI. Pt repositioned throughout night. Pt reports SOB with exertion. Pt is up A2 with walker gait belt. Pt?1 large BM. Pt slept throughout most of night. ?
[2023-05-12] MEDS: APIXABAN 5 MG TABLET 2.5 MG PO ×2 (09:03→20:59)
[2023-05-12] MEDS: ESCITALOPRAM 10 MG TABLET 20 MG PO (09:08)
[2023-05-12] MEDS: mycophenolate mofetiL 250 MG CAPSULE 750 MG PO ×2 (09:08→20:58)
[2023-05-12] MEDS: TACROLIMUS 0.5 MG CAPSULE PO ×2 (09:10→20:58)
[2023-05-12] MEDS: TAMSULOSIN HCL 0.4 MG CAPSULE 0.8 MG PO (09:10)
[2023-05-12] MEDS: PREGABALIN 75 MG CAPSULE 150 MG PO ×2 (09:12→20:58)
[2023-05-12] MEDS: carvediloL 25 MG TABLET PO ×2 (09:12→20:58)
[2023-05-12 11:00] VITALS: BP 136/72; PULSE 63; RESP 17; TEMP 36.6; O2SAT 98
--- NOTE | 2023-05-12 11:15 | P.IMPN_ITS ---
Progress Note: A&P Assessment and plan (1) UTI (urinary tract infection): Problem details: - on Ceftriaxone (05/11) - culture + for Serratia, sensitive to Ceftriaxone Status: Acute (2) Weakness: Problem details: - likely multifactorial (UTI, CHF exacerbation, multiple comorbidities) - urine culture pending, TTE pending - therapies following, will require SNF upon d/c Status: Acute (3) CKD (chronic kidney disease): Problem details: - with MICHELLE - baseline creatinine ~2.6, current creatinine 3.3 - h/o renal transplant remotely - continue anti-rejection meds, follow closely - reviewed case with Gretta Peacock, customer solutions coordinator ([phone]) on 05/12. She is aware of patient's MICHELLE and will contact him for outpatient f/u Status: Acute (4) Type 2 diabetes mellitus: Problem details: - continue home insulin, accuchecks, sliding scale - A1C typically 9-11, poor insight into disease process Status: Acute (5) Skin ulcer of buttock: Problem details: - in addition to R ankle, followed by wound care team - chronic without evidence of acute infection Status: Acute (6) Permanent atrial fibrillation: Problem details: - rate controlled on Coreg, anticoagulated on Apixaban Status: Chronic (7) BPH (benign prostatic hyperplasia): Problem details: - Stable on Flomax Status: Chronic (8) AV fistula: Problem details: - right arm Status: Acute (9) Hyponatremia: Problem details: - mild, normal when corrected for hyperglycemia Status: Acute (10) CHF (congestive heart failure): Problem details: - no clinical evidence of exacerbation - continue home medications - TTE 05/11: Final Impressions: 1. Technically limited exam. 2. Normal left ventricular size, moderately increased wall thickness, normal global systolic function, calculated EF of 64 %. 3. Right ventricular cavity size is normal, global systolic RV function is normal. 4. Normal left atrium size. 5. The aortic valve is sclerotic, no stenosis and trivial regurgitation. 6. The mitral valve is sclerotic, trace mitral regurgitation. 7. Tricuspid valve is normal. 8. 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 9. The aortic sinus is dilated with a maximal diameter of 3.9 cm. 10. No pericardial effusion. Status: Chronic Plan - per above - Apixaban for ppx - reviewed with partner Tete, she agrees that patient requires a SNF upon d/c, Social Work consulted Subjective Date Seen: 05/12/23 Interval history: Latrell is a renal transplant patient who was admitted to the hospital on 05/11 for acute on chronic weakness, in addition to recurrent UTI. Current urine culture is growing Serratia, sensitive to ceftriaxone, resistant to ciprofloxacin. He continues to feel weak and is ambulating minimally. He understands that he will require rehab stay upon discharge. BG 250+ Exam Narrative: Exam Narrative: GEN: Alert and answering questions appropriately, sitting comfortably in bed HEENT: EOMIs bilaterally, no scleral icterus CV: Irregular, no concerning murmurs R: Breathing comfortably without tachypnea, no wheezing Ext: L BKA Skin: Mild skin irritation proximally to stump, no concerning features. Wounds on R ankle and buttock not formally examined (seeing Dr. Tate from [facility] today) Neuro: No facial droop, intermittent resting tremor BUE (R>L) Psych: Mildly frustrated regarding need for rehab stay, appropriate Const: Vital Signs, click to edit/add: Vital Signs - 24 hr 05/11/23 15:00 05/11/23 19:00 05/11/23 23:20 Temperature 97.9 F 98.2 F Pulse Rate [Pulse Oximeter] 56 L 57 L 61 Respiratory Rate 16 16 16 Blood Pressure [Le ft Arm] 113/54 L 128/67 Pulse Oximetry 95 98 Oxygen Delivery Me thod Room Air Room Air 05/11/23 23:20 05/12/23 03:35 Temperature 98.5 F 98.0 F Pulse Rate [Pulse Oximeter] 85 65 Respiratory Rate 16 16 Blood Pressure [Le ft Arm] 122/61 140/86 H Pulse Oximetry 97 97 Oxygen Delivery Me thod Room Air Room Air Labs Labs: Laboratory Results - last 24 hr 05/12/23 05:56 WBC 4.80 RBC 4.95 Hgb 13.1 L Hct 40.9 MCV 83 MCH 27 MCHC 32 RDW Coeff of Benjamin 15.8 H Plt Count 93 L Neut % (Auto) 59.8 Lymph % (Auto) 25.0 [place] % (Auto) 9.0 Eos % (Auto) 5.8 Baso % (Auto) 0.4 Neut # (Auto) 2.87 Lymph # (Auto) 1.20 [place] # (Auto) 0.40 Eos # (Auto) 0.28 Baso # (Auto) 0.02 Abs Immat Gran (auto) 0.00 Imm/Tot Granulo (auto) 0.0 Sodium 140 Potassium 4.4 Chloride 108 Carbon Dioxide 20 Anion Gap 12 BUN 66 H Creatinine 3.5 H Estimated Creat Clear 20.63 Estimated GFR 18 Glucose 331 H Calcium 9.9
[2023-05-12] MEDS: TORSEMIDE 5 MG TABLET PO (12:21)
--- NOTE | 2023-05-12 14:32 | PC.SOCIAL ---
Addendum entered by Shira Caro LCSW 05/12/23 15:51: Updated patient, and roommate, Tete about facilities. They would also like to consider [facility] in [place], if [facility] not accept him. Social work to call and fax packet. Original Note: Discharge Planning: Met with patient in his room. Discussed need for rehab stay with patient. Patient initially stated that he did not want to go to any nursing homes for rehab. He was able to give this telegraphic typewriter operator his preference for which facilities he would like to go to. The following facilities were contacted with the following results: 1. [facility] -would consider but could not accept until Tuesday05/16/2023 2. [facility]- not accepting patients 3. [facility]-([phone]) Paperwork faxed ( ) They have a bed for tomorrow 05/13/2023 and are considering Social work to follow up as needed
[2023-05-12 15:00] VITALS: BP 112/51; PULSE 58; RESP 20; TEMP 36.3; O2SAT 97
[2023-05-12 19:30] VITALS: BP 142/73; PULSE 60; RESP 16; TEMP 36.4; O2SAT 98
--- NOTE | 2023-05-12 19:58 | PC.NURSE ---
Patient alert, oriented and pleasant. Areas of scattered redness, dryness and flaky areas noted to stump. MD updated and new orders for Vanicream given. Tolerated regular diet. Ambulated to bathroom with assist of 1-2, walker and gait belt. Mepilet to right lateral calf CD&I. Dr Tate assessed wound and instructed she would bring new dressing from [facility] but not brought to room yet. Mepilex maintained at this time. Mepilex to gluteal cleft changed this evening. Reported back pain rated 3/10 this morning, but reported back discomfort was not measurable since that time and declined pain medications.
[2023-05-12] MEDS: ROSUVASTATIN CALCIUM 10 MG TABLET PO (20:59)
[2023-05-12 23:00] VITALS: BP 139/70; PULSE 60; RESP 16; TEMP 36.7; O2SAT 98
--- NOTE | 2023-05-12 23:14 | PC.NURSE ---
End of shift nursing note, care provided from [id number]: Pt alert and oriented, pleasant and cooperative. Ax1 w/ walker to bathroom. Had BM this evening, voided. Mepilex to buttocks changed d/t being soiled. Mepilex to R calf CDI. Pt denies pain, need for PRN pain intervention. Blood glucose 193 this evening, scheduled long acting insulin admin. Pt denies needs, concerns. Took scheduled medication without issue. Denies chest pain, denies SOB and nausea. IV to L forearm flushed, patent and saline locked. Pt comfortable in bed and resting at end of shift. Call light within pt reach.
[2023-05-13] MEDS: cefTRIAXone 1 GM in 0.9 % SODIUM CHLORIDE Mini-bag 100 ML IVPB (02:49)
[2023-05-13] MEDS: SODIUM CHLORIDE 0.9 % (FLUSH) 10 ML SYRINGE 5 ML IVF ×3 (02:50→20:42)
[2023-05-13 03:00] VITALS: BP 155/78; PULSE 59; RESP 18; TEMP 36.7; O2SAT 97
--- NOTE | 2023-05-13 05:23 | PC.NURSE ---
[id number] Pt slept well during night, denies chest pain, N/V or headache. urinal use during night.
[2023-05-13 06:29] LABS: Basophils Absolute Auto 0.02 K/uL (0.00-0.30); Basophils Percent Auto 0.4 % (0.0-3.0); Eosinophils Absolute Auto 0.33 K/uL (0.00-0.50); Eosinophils Percent Auto 6.3 % (0.0-7.0); Hematocrit 40.2 % (37.0-53.0); Hemoglobin* 12.8 gm/dL (13.5-17.5); Lymphocytes Absolute Auto 1.27 K/uL (0.90-2.90); Lymphocytes Percent Auto 24.4 % (20-44); Mean Corpuscular HGB Conc 32 gm/dL (32-36); Mean Corpuscular Hemoglobin 26 pg (26-34); Mean Corpuscular Volume 83 fL (80-100); Monocytes Percent Auto 8.1 % (0.0-11.0); Neutrophils Absolute Auto 3.16 K/uL (1.7-7.0); Neutrophils Percent Auto 60.8 % (42.0-72.0); Platelet Count* 84 K/uL (140-440); RDW Coefficient of Variation % 15.8 % (11.5-15.5); Red Blood Count 4.84 m/uL (4.30-5.90)
[2023-05-13] MEDS: LEVOTHYROXINE 88 MCG TABLET PO (06:37)
[2023-05-13] MEDS: OMEPRAZOLE 20 MG CAPSULE DR 40 MG PO ×2 (06:37→08:03)
[2023-05-13 06:59] LABS: Chloride* 109 mmol/L (96-114)
[2023-05-13 07:00] VITALS: BP 168/82; PULSE 56; PULSE 62; RESP 16; RESP 18; TEMP 36.4; O2SAT 92
[2023-05-13 07:00] LABS: Potassium* 4.4 mmol/L (3.6-5.1); Sodium* 137 mmol/L (135-149)
[2023-05-13 07:01] LABS: Slide Review Reflex No
[2023-05-13 07:02] LABS: Anion Gap 10 mEq/L (7-15); Carbon Dioxide* 18 mmol/L (20-32); Creatinine* 3.3 mg/dL (0.5-1.5); Est. Creatinine Clearance* 21.88; Estimated Glomerular Filt Rate 19 ml/min
[2023-05-13 07:03] LABS: Blood Urea Nitrogen* 69 mg/dL (7-30); Calcium* 9.7 mg/dL (8.4-10.6); Glucose* 258 mg/dL (60-115)
[2023-05-13] MEDS: TORSEMIDE 20 MG TABLET PO ×2 (07:58→14:28)
[2023-05-13] MEDS: mycophenolate mofetiL 250 MG CAPSULE 750 MG PO ×2 (08:37→20:34)
[2023-05-13] MEDS: TACROLIMUS 0.5 MG CAPSULE PO ×2 (08:37→20:34)
[2023-05-13] MEDS: ESCITALOPRAM 10 MG TABLET 20 MG PO (08:37)
[2023-05-13] MEDS: carvediloL 25 MG TABLET PO ×2 (08:38→20:33)
[2023-05-13] MEDS: TAMSULOSIN HCL 0.4 MG CAPSULE 0.8 MG PO (08:38)
[2023-05-13] MEDS: APIXABAN 5 MG TABLET 2.5 MG PO ×2 (08:38→20:33)
[2023-05-13] MEDS: PREGABALIN 75 MG CAPSULE 150 MG PO ×2 (08:48→20:33)
[2023-05-13 11:00] VITALS: BP 144/69; PULSE 56; RESP 20; TEMP 36.4; O2SAT 98
--- NOTE | 2023-05-13 11:26 | PC.SOCIAL ---
Addendum entered by Shira Caro LCSW 05/13/23 13:47: Patient has decided to have Home Care for PT and OT. [facility] ([phone]) accepted this patient for Tuesday05/16/2023. Discharge paperwork and orders have been faxed. Tete Junior is currently in patient's room. This insurance writer gave patient contact information for [facility] in case they have any questions. Reminded Tete that patient refused recommendation for non-emergent ambulance ride home and opted for ride from her instead. Roommate will transport patient home today after his lunch. Social work to follow up as needed. Original Note: Discharge Planning: Met with patient to discuss SNF. [facility] patient for today due to lack of rooms. Waiting for call back from [facility]. Patient states that he is unhappy that his SNF rehab stay would be private pay. Explained that he does not meet criteria for Medicare to pay for SNF. Discussed applying for MA, patient declined this. Patient states that he will not go to a SNF if he has to pay for it. Patient is aware that SNF is the recommendation from Hospital. Recommendation is for patient to discharge home today via non-emergency ambulance, which would also be private pay. Patient states that he will not pay for transfer and plans on having his roommate drive him home and help him in his house. Patient is aware of hospital recommendation of going to SNF and having a non-emergency transfer home. Explained and offered patient Home Care referral for Therapy. Supplied patient with list of agencies and offered to set up. Patient will discuss with Tete junior. Patient requested this insurance writer speak with Tete junior about conversations. This insurance writer called Tete and discussed conversation with patient. Tete states that she does not understand decision of non qualifying stay. Offered to meet with patient and roommate when she arrives. Roommate has insurance writer remote phone number and in addition knows to ask for social work. Updated Hospitalist on patient's plan. Hospitalist will talk with patient. Updated Rehab team of patient's plan. Social work to follow up as needed.
--- NOTE | 2023-05-13 11:42 | PM.DS1 ---
DS: Providers Provider Date Seen: 05/13/23 Date of admission: 05/11/23 01:04 Primary care physician: Momo Forbes MD Admitting Clinician: German Capone MD Consults: PT, OT, SW Attending Physician on discharge: Jasmina Chinchilla MD Date of Discharge: 05/13/23 DS: Diagnosis Discharge Diagnosis (1) UTI (urinary tract infection): Status: Acute Problem details: - on Ceftriaxone (05/11) - culture + for Serratia, sensitive to Ceftriaxone - discharging 05/13 on course of Omnicef (2) Weakness: Status: Acute Problem details: - likely multifactorial (UTI, CHF exacerbation, multiple comorbidities) - urine culture pending, TTE pending - therapies following, SNF recommended upon discharge - patient refusing SNF on 05/13, would like to go home with partner and HH, understands risk (3) CKD (chronic kidney disease): Status: Acute Problem details: - with MICHELLE - baseline creatinine ~2.6, discharge creatinine on 05/13/23 is 3.3 - h/o renal transplant remotely - continue anti-rejection meds, follow closely - reviewed case with Gretta Peacock, sales development coordinator ([phone]) on 05/12. She is aware of patient's MICHELLE and will contact him for outpatient f/u (4) Type 2 diabetes mellitus: Status: Acute Problem details: - continue home insulin, accuchecks, sliding scale - A1C typically 9-11, poor insight into disease process (5) Skin ulcer of buttock: Status: Acute Problem details: - in addition to R ankle, followed by wound care team - chronic without evidence of acute infection (6) Permanent atrial fibrillation: Status: Chronic Problem details: - rate controlled on Coreg, anticoagulated on Apixaban (7) BPH (benign prostatic hyperplasia): Status: Chronic Problem details: - Stable on Flomax (8) AV fistula: Status: Acute Problem details: - right arm (9) Hyponatremia: Status: Acute Problem details: - mild, normal when corrected for hyperglycemia (10) CHF (congestive heart failure): Status: Chronic Problem details: - no clinical evidence of exacerbation - continue home medications - TTE 05/11: Final Impressions: 1. Technically limited exam. 2. Normal left ventricular size, moderately increased wall thickness, normal global systolic function, calculated EF of 64 %. 3. Right ventricular cavity size is normal, global systolic RV function is normal. 4. Normal left atrium size. 5. The aortic valve is sclerotic, no stenosis and trivial regurgitation. 6. The mitral valve is sclerotic, trace mitral regurgitation. 7. Tricuspid valve is normal. 8. 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 9. The aortic sinus is dilated with a maximal diameter of 3.9 cm. 10. No pericardial effusion. DS: Summary Hospital Course Hospital Course: Latrell was admitted to the hospital on 05/11 for concerns of acute on chronic weakness. He was also found to have a UTI and elevated creatinine on admission. Urine culture + for Serratia, ceftriaxone initiated on admission. Patient seen by therapies during stay, who recommended SNF upon discharge. Patient refused SNF upon discharge, understanding risk of not following this recommendation; patient is high risk for readmission given multiple comorbidities and noncompliance. Home health referral placed. Comorbidities with notable findings listed above. No changes made to home medications, course of Omnicef continued upon discharge for UTI. 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 Trace pretibial edema RLE Neuro: No facial droop or focal deficits Const: Vital Signs, click to edit/add: Vital Signs - 24 hr 05/12/23 15:00 05/12/23 15:00 05/12/23 19:30 Temperature 97.4 F L 97.5 F L Pulse Rate [Pulse Oximeter] 58 L 58 L 60 Respiratory Rate 20 20 16 Blood Pressure [Le ft Arm] 112/51 L 142/73 H Pulse Oximetry 97 98 Oxygen Delivery Me thod Room Air Room Air 05/12/23 23:00 05/13/23 03:00 05/13/23 07:00 Temperature 98.1 F 98.1 F 97.6 F Pulse Rate [Pulse Oximeter] 60 59 L 62 Respiratory Rate 16 18 18 Blood Pressure [Le ft Arm] 139/70 155/78 H 168/82 H Pulse Oximetry 98 97 92 Oxygen Delivery Me thod Room Air Room Air Room Air DS: Data Data Completed and Pending Completed studies during hospitalization: Procedures Introduction of Other Gas into Respiratory Tract, Via Natural or Artificial Opening (07/10/22) Labs on day of discharge: Labs from last 24 hours 05/13/23 05:55 WBC 5.20 RBC 4.84 Hgb 12.8 L Hct 40.2 MCV 83 MCH 26 MCHC 32 RDW Coeff of Benjamin 15.8 H Plt Count 84 L Neut % (Auto) 60.8 Lymph % (Auto) 24.4 [place] % (Auto) 8.1 Eos % (Auto) 6.3 Baso % (Auto) 0.4 Neut # (Auto) 3.16 Lymph # (Auto) 1.27 [place] # (Auto) 0.40 Eos # (Auto) 0.33 Baso # (Auto) 0.02 Abs Immat Gran (auto) 0.00 Imm/Tot Granulo (auto) 0.0 Sodium 137 Potassium 4.4 Chloride 109 Carbon Dioxide 18 L Anion Gap 10 BUN 69 H Creatinine 3.3 H Estimated Creat Clear 21.88 Estimated GFR 19 Glucose 258 H Calcium 9.7 Total Bilirubin Pending Direct Bilirubin Pending AST Pending ALT Pending Alkaline Phosphatase Pending Total Protein Pending Albumin Pending Preliminary micro results at discharge 05/10/23 23:10 Blood Culture - Preliminary Blood NO GROWTH AFTER 48 HOURS 05/10/23 22:54 Blood Culture - Preliminary Blood NO GROWTH AFTER 48 HOURS Discharge Plan Discharge Disposition: Home, Self-Care Date of Admission: 05/11/23 01:04 Attending Provider on Discharge: Jasmina Chinchilla Primary Care Provider: Momo Forbes Condition: Stable Anticipated Discharge Date/Time: 05/13/23 11:37 Discharge Medications: New cefdinir 300 mg capsule 300 mg PO BID 7 Days Qty: 14 0RF Continued escitalopram oxalate 20 mg tablet 20 mg PO DAILY Qty: 90 3RF pantoprazole 40 mg tablet,delayed release (DR/EC) 40 mg PO DAILY Qty: 90 3RF mycophenolate mofetil 250 mg capsule 750 mg PO BID Qty: 180 3RF rosuvastatin 10 mg tablet 10 mg PO HS Qty: 90 3RF tamsulosin 0.4 mg capsule 0.8 mg PO DAILY Qty: 180 3RF torsemide 20 mg tablet See Rx Instructions PO BID Qty: 90 5RF Rx Instructions: orally twice a day; 2 Qam and 1 Qnoon potassium chloride 20 mEq tablet extended release 20 meq PO BID Qty: 180 3RF tacrolimus 0.5 mg capsule 0.5 mg PO BID zolpidem [Ambien] 10 mg tablet 10 mg PO QHS PRN (Reason: insomnia) Qty: 30 2RF carvedilol 25 mg tablet 25 mg PO BID Eliquis 2.5 mg tablet 2.5 mg PO BID insulin detemir U-100 100 unit/mL (3 mL) insulin pen 40 unit subcut HS Qty: 30 5RF insulin aspart U-100 [Novolog FlexPen U-100 Insulin] 100 unit/mL (3 mL) insulin pen 15 unit subcut TIDWM Qty: 15 5RF insulin lispro [Humalog KwikPen Insulin] 100 unit/mL insulin pen 15 unit subcut TID Qty: 30 2RF pregabalin 150 mg capsule 150 mg PO BID Qty: 60 1RF levothyroxine 88 mcg tablet 88 mcg PO QDAY Qty: 90 0RF Discontinued ciprofloxacin HCl 500 mg tablet 500 mg PO QDAY Qty: 10 0RF Discharge Orders: Discharge Order (Routine); Ordered 05/13/23 Ordered By: Jasmina Chinchilla Additional Instructions: Antibiotics at [facility] ER. Home Health referral has been placed upon discharge. DO YOUR HOME EXERCISES TWICE/DAY to help with strengthening. See wound care clinic and Dr. Forbes next week. Activity Level: Activity as Tolerated and No strenuous activity Discharge Diet: Diabetic Follow Up Appointments: Momo Forbes MD [Primary Care Provider] - 05/17/23 9:45 am ([facility] 05/18/23 @ 11:00 am [place] ) Forms: [facility] Info Instructions
[2023-05-13 12:11] LABS: Albumin* 3.2 g/dL (3.3-5.0)
[2023-05-13 12:14] LABS: Aspartate Amino Transferase* 23 U/L (12-35); Bilirubin Direct* 0.1 mg/dL (0.0-0.5); Bilirubin Total* 0.6 mg/dL (0.1-1.5); Total Protein* 6.2 g/dL (6.0-8.3)
[2023-05-13 12:15] LABS: Alanine Aminotransferase* 12 U/L (4-50); Alkaline Phosphatase* 138 U/L (40-150)
--- NOTE | 2023-05-13 14:27 | PM.EN ---
Chart Event Note Chart Event Note: Evaluation of patients known RLE wound. He is seen by this provider in the wound clinic. Wound is about 5 mm in size, minimal fibrinous exudate with some granulation tissue within wound bed. No concern for infection. Can continue with current wound cares, keep covered with Mepilex and follow up in wound clinic next week. Recommend applying lotion daily to extremities.
[2023-05-13 15:00] VITALS: BP 143/69; PULSE 56; PULSE 58; RESP 16; RESP 20; TEMP 36.6; O2SAT 96
--- NOTE | 2023-05-13 15:43 | PM.EN ---
Chart Event Note Date Seen: 05/13/23 Chart Event Note: met with roommate/partner and she feels forced to care for him and feels unable emotionally and physically to provide the care he needs. he was offered short term rehab but refuses to be straddled with this bill he does not have a safe discharge plan if his partner is unwilling/unable. he was made an inpatient for unsafe discharge plan and will likely be placed in rehab early next week.
--- NOTE | 2023-05-13 16:48 | PC.SOCIAL ---
Discharge planning: box storage worker contacted [facility] and updated that patient will not be discharging today, 05/13. Packet faxed to [facility] and secure e-mailed, and [facility]. box storage worker to follow up as needed.
[2023-05-13] MEDS: POTASSIUM CHLORIDE 10 MEQ CAPSULE ER 20 MEQ PO (18:09)
--- NOTE | 2023-05-13 18:16 | PC.NURSE ---
Elevated BP, bradycardic, otherwise VSS. RA. Denies pain. Tolerating regular diet, blood sugars consistently in low to mid 200s when checked despite scheduled and SS insulin given. Drinking lots of fluids. Up to bathroom w/ 1-assist and walker. Large BM x1. Right AV fistula present. LBK amputation/prosthetic. Wound on buttocks and right carmona, no drainage, Mepilex c/d/i. No longer has IV- pt was supposed to d/c today, but plan has changed. Pt now inpatient as could not discharge safely home, will go to rehab. Will continue to monitor & follow care until placement identified. Anna Robbins RN
[2023-05-13 19:00] VITALS: BP 104/74; PULSE 59; RESP 18; TEMP 36.6; O2SAT 99
[2023-05-13] MEDS: ROSUVASTATIN CALCIUM 10 MG TABLET PO (20:33)
[2023-05-13 23:00] VITALS: BP 163/69; PULSE 52; RESP 18; TEMP 36.4; O2SAT 91
[2023-05-14] VITALS (10 sets, daily range): BP systolic 120–167; BP diastolic 61–89; PULSE 52–76; RESP 16; TEMP 36.3–36.4; O2SAT 95–99
[2023-05-14] MEDS: cefTRIAXone 1 GM in 0.9 % SODIUM CHLORIDE Mini-bag 100 ML IVPB (02:47)
--- NOTE | 2023-05-14 04:02 | PC.NURSE ---
PATIENT PLEASANT AND COOPERATIVE, ALERT AND ORIENTED, UP A1 WITH WALKER AND BELT, INCONTINENT OF URINE USING URINAL/TOILET AND/OR BRIEF THIS SHIFT, DECLINING PAIN.
[2023-05-14] MEDS: LEVOTHYROXINE 88 MCG TABLET PO (06:41)
[2023-05-14] MEDS: OMEPRAZOLE 20 MG CAPSULE DR 40 MG PO (06:41)
[2023-05-14] MEDS: POTASSIUM CHLORIDE 10 MEQ CAPSULE ER 20 MEQ PO ×2 (09:21→17:25)
[2023-05-14] MEDS: TORSEMIDE 20 MG TABLET 40 MG PO (09:22)
[2023-05-14] MEDS: PREGABALIN 75 MG CAPSULE 150 MG PO ×2 (10:12→20:53)
[2023-05-14] MEDS: carvediloL 25 MG TABLET PO ×2 (10:13→20:53)
[2023-05-14] MEDS: APIXABAN 5 MG TABLET 2.5 MG PO ×2 (10:13→20:53)
[2023-05-14] MEDS: ESCITALOPRAM 10 MG TABLET 20 MG PO (10:13)
[2023-05-14] MEDS: TACROLIMUS 0.5 MG CAPSULE PO ×2 (10:14→20:54)
[2023-05-14] MEDS: TAMSULOSIN HCL 0.4 MG CAPSULE 0.8 MG PO (10:14)
[2023-05-14] MEDS: mycophenolate mofetiL 250 MG CAPSULE 750 MG PO ×2 (10:14→20:53)
[2023-05-14] MEDS: SODIUM CHLORIDE 0.9 % (FLUSH) 10 ML SYRINGE 5 ML IVF ×2 (10:15→20:55)
[2023-05-14] MEDS: TORSEMIDE 20 MG TABLET PO (12:20)
--- NOTE | 2023-05-14 13:41 | P.IMPN_ITS ---
Progress Note: A&P Assessment and plan (1) UTI (urinary tract infection): Problem details: - on Ceftriaxone (05/11) - culture + for Serratia, sensitive to Ceftriaxone - discharging 05/13 on course of Omnicef Status: Acute (2) Urinary retention: Status: Acute (3) Weakness: Problem details: - likely multifactorial (UTI, CHF exacerbation, multiple comorbidities) - urine culture pending, TTE pending - therapies following, SNF recommended upon discharge - patient refusing SNF on 05/13, would like to go home with partner and HH, understands risk Status: Acute (4) CKD (chronic kidney disease): Problem details: - with MICHELLE - baseline creatinine ~2.6, discharge creatinine on 05/13/23 is 3.3 - h/o renal transplant remotely - continue anti-rejection meds, follow closely - reviewed case with Gretta Peacock, community center coordinator ([phone]) on 05/12. She is aware of patient's MICHELLE and will contact him for outpatient f/u Status: Acute (5) Hyponatremia: Problem details: - mild, normal when corrected for hyperglycemia Status: Acute (6) Pancreatic mass: Problem details: - EUS with biopsy ([facility], 01/2021), no overt malignancy on path, presumed IPMN Status: Acute (7) Basal cell carcinoma (BCC) of right ear: Status: Acute (8) Type 2 diabetes mellitus: Problem details: - continue home insulin, accuchecks, sliding scale - A1C typically 9-11, poor insight into disease process Status: Acute (9) CHF (congestive heart failure): Problem details: - no clinical evidence of exacerbation - continue home medications - TTE 05/11: Final Impressions: 1. Technically limited exam. 2. Normal left ventricular size, moderately increased wall thickness, normal global systolic function, calculated EF of 64 %. 3. Right ventricular cavity size is normal, global systolic RV function is normal. 4. Normal left atrium size. 5. The aortic valve is sclerotic, no stenosis and trivial regurgitation. 6. The mitral valve is sclerotic, trace mitral regurgitation. 7. Tricuspid valve is normal. 8. 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 9. The aortic sinus is dilated with a maximal diameter of 3.9 cm. 10. No pericardial effusion. Status: Chronic (10) BPH (benign prostatic hyperplasia): Problem details: - Stable on Flomax Status: Chronic (11) CHANELL (obstructive sleep apnea): Problem details: Noncompliant with CPAP. Status: Chronic (12) Permanent atrial fibrillation: Problem details: - rate controlled on Coreg, anticoagulated on Apixaban Status: Chronic (13) Skin ulcer of buttock: Problem details: - in addition to R ankle, followed by wound care team - chronic without evidence of acute infection Status: Acute (14) General patient noncompliance: Status: Chronic Plan 1. Reviewed impression with patient 2. Answered patient's questions 3. Continue supportive efforts 4. Continue with efforts to strive to achieve safe discharge disposition on behalf of patient 5. Patient agreeable with above stated plans and recommendations Time Spent With Patient Total time spent: 35 Subjective Time Seen by Provider: 07:30 Date Seen: 05/14/23 Interval history: Hospital day 4. Patient admitted for observation to the hospital on 05/11/2023. Found to have a urinary tract infection, grew out Serratia marcescens sensitive to IV ceftriaxone which he was started on empirically. Was ready for discharge yesterday to home with his partner. At time of discharge yesterday, his partner indicated she could no longer care for him. We thus had an unsafe discharge plan at that juncture, because patient does need 24 hour cares at this time. Thus he was admitted to the hospital yesterday for inpatient care as we sort through potentially safe discharge disposition plans. He indicates he is feeling better and well now. Has no concerns or complaints. Denies chest heaviness, pressure, tightness or pain. Denies dyspnea at rest, paroxysmal nocturnal dyspnea, orthopnea. Acknowledges baseline dyspnea with exertion. Eating and drinking without difficulties. Denies diarrhea or constipation. Denies dysuria, urgency, frequency, hematuria. Still needing support with some of his ADLs. Exam Narrative: Exam Narrative: I examined patient in his hospital room. Appears comfortable and in no acute distress. Vision and hearing are grossly adequate. Alert and oriented to self, place, time, and in great measure to situation as well. Talkative, friendly. Lungs are clear to auscultation. Heart tones with regular rhythm. Abdomen is obese with active bowel sounds, soft, nontender. No focal motor neurologic deficits. Still weak and requires support was some of his ADLs. Const: Vital Signs, click to edit/add: Vital Signs - 24 hr 05/13/23 15:00 05/13/23 15:00 05/13/23 19:00 Temperature 97.8 F 97.8 F Pulse Rate [Pulse Oximeter] 56 L 58 L 59 L Pulse Rate [orthos tatic lying] Pulse Rate [orthos tatic sitting] Pulse Rate [orthos tatic standing] Respiratory Rate 16 20 18 Blood Pressure [Le ft Arm] 143/69 H 104/74 Blood Pressure [or thostatic lying] Blood Pressure [or thostatic sitting] Blood Pressure [or thostatic standing ] Pulse Oximetry 96 99 Oxygen Delivery Me thod Room Air Room Air 05/13/23 23:00 05/14/23 03:00 05/14/23 07:00 Temperature 97.5 F L Pulse Rate [Pulse Oximeter] 52 L 52 L Pulse Rate [orthos tatic lying] Pulse Rate [orthos tatic sitting] Pulse Rate [orthos tatic standing] Respiratory Rate 18 16 16 Blood Pressure [Le ft Arm] 163/69 H Blood Pressure [or thostatic lying] Blood Pressure [or thostatic sitting] Blood Pressure [or thostatic standing ] Pulse Oximetry 91 Oxygen Delivery Me thod Room Air 05/14/23 07:00 05/14/23 09:33 05/14/23 09:35 Temperature Pulse Rate [Pulse Oximeter] 57 L Pulse Rate [orthos tatic lying] 60 Pulse Rate [orthos tatic sitting] 66 Pulse Rate [orthos tatic standing] Respiratory Rate 16 Blood Pressure [Le ft Arm] 167/89 H Blood Pressure [or thostatic lying] 158/81 H Blood Pressure [or thostatic sitting] 136/74 Blood Pressure [or thostatic standing ] Pulse Oximetry 96 Oxygen Delivery Me thod Room Air 05/14/23 09:39 05/14/23 11:00 Temperature 97.4 F L Pulse Rate [Pulse Oximeter] 71 Pulse Rate [orthos tatic lying] Pulse Rate [orthos tatic sitting] Pulse Rate [orthos tatic standing] 76 Respiratory Rate 16 Blood Pressure [Le ft Arm] 120/61 Blood Pressure [or thostatic lying] Blood Pressure [or thostatic sitting] Blood Pressure [or thostatic standing ] 129/78 Pulse Oximetry 95 Oxygen Delivery Me thod Room Air
--- NOTE | 2023-05-14 17:48 | PC.NURSE ---
Elevated BP, bradycardic, otherwise VSS. RA. Denies pain. Tolerating regular diet, 100% of meals. Drinking lots of liquids. Blood sugars seem to be better controlled today (~196, 225, 152). Voided x6. BM x2. Pt having a hard time wiping himself. Wound on right buttock, sanguinous drainage- dressing changed. PIV in left arm- SL'd. Worked w/ PT and OT today, Tete here for awhile this evening. Pt in good spirits. Will continue to monitor, follow POC, and keep pt and family updated. Anna Robbins RN
[2023-05-14] MEDS: ROSUVASTATIN CALCIUM 10 MG TABLET PO (20:52)
[2023-05-15] MEDS: cefTRIAXone 1 GM in 0.9 % SODIUM CHLORIDE Mini-bag 100 ML IVPB (02:47)
[2023-05-15 03:00] VITALS: BP 150/78; PULSE 63; RESP 16; TEMP 36.4; O2SAT 96
--- NOTE | 2023-05-15 05:08 | PC.NURSE ---
PATIENT ALERT AND ORIENTED PLEASANT AND COOPERATIVE, UP A1 WITH WALKER AND BELT, DECLINING PAIN.
[2023-05-15 07:00] VITALS: BP 148/73; PULSE 47; RESP 20; TEMP 36.4; O2SAT 97
[2023-05-15] MEDS: OMEPRAZOLE 20 MG CAPSULE DR 40 MG PO (08:18)
[2023-05-15] MEDS: POTASSIUM CHLORIDE 10 MEQ CAPSULE ER 20 MEQ PO ×2 (08:18→19:00)
[2023-05-15] MEDS: LEVOTHYROXINE 88 MCG TABLET PO (08:19)
[2023-05-15] MEDS: ESCITALOPRAM 10 MG TABLET 20 MG PO (09:15)
[2023-05-15] MEDS: TACROLIMUS 0.5 MG CAPSULE PO ×2 (09:15→20:58)
[2023-05-15] MEDS: carvediloL 25 MG TABLET PO ×2 (09:16→20:58)
[2023-05-15] MEDS: APIXABAN 5 MG TABLET 2.5 MG PO ×2 (09:16→20:57)
[2023-05-15] MEDS: mycophenolate mofetiL 250 MG CAPSULE 750 MG PO ×2 (09:17→20:58)
[2023-05-15] MEDS: PREGABALIN 75 MG CAPSULE 150 MG PO ×2 (09:20→20:57)
[2023-05-15] MEDS: NYSTATIN POWDER 1 APPLIC TOPICAL ×2 (09:20→21:05)
[2023-05-15] MEDS: TAMSULOSIN HCL 0.4 MG CAPSULE 0.8 MG PO (09:20)
[2023-05-15] MEDS: SODIUM CHLORIDE 0.9 % (FLUSH) 10 ML SYRINGE 5 ML IVF ×2 (09:20→20:59)
[2023-05-15] MEDS: TORSEMIDE 20 MG TABLET 40 MG PO (09:23)
[2023-05-15 11:00] VITALS: BP 126/75; PULSE 54; RESP 20; TEMP 36.4; O2SAT 97
[2023-05-15] MEDS: TORSEMIDE 20 MG TABLET PO (11:55)
--- NOTE | 2023-05-15 13:19 | P.IMPN_ITS ---
Progress Note: A&P Assessment and plan (1) UTI (urinary tract infection): Problem details: - on Ceftriaxone (05/11) - culture + for Serratia, sensitive to Ceftriaxone - anticipated discharging of 05/13 on course of Omnicef, but he was not discharged on that date due to his partner suddenly indicating that she will no longer be able to care for him in their home Status: Acute (2) Urinary retention: Status: Acute (3) Weakness: Problem details: - likely multifactorial (UTI, CHF exacerbation, multiple comorbidities) - urine culture pending, TTE pending - therapies following, SNF recommended upon discharge - patient had refused SNF on 05/13, indicating that he would like to go home with partner and HH, understands risk - patient now willing to go to nursing home facility since his partner refuses to care for him in their home Status: Acute (4) CKD (chronic kidney disease): Problem details: - with MICHELLE - baseline creatinine ~2.6, discharge creatinine on 05/13/23 is 3.3 - h/o renal transplant remotely - continue anti-rejection meds, follow closely - reviewed case with Gretta Peacock, complaint coordinator ([phone]) on 05/12. She is aware of patient's MICHELLE and will contact him for outpatient f/u Status: Acute (5) Hyponatremia: Problem details: - mild, normal when corrected for hyperglycemia Status: Acute (6) Pancreatic mass: Problem details: - EUS with biopsy ([facility], 01/2021), no overt malignancy on path, presumed IPMN Status: Acute (7) Basal cell carcinoma (BCC) of right ear: Status: Acute (8) Type 2 diabetes mellitus: Problem details: - continue home insulin, accuchecks, sliding scale - A1C typically 9-11, poor insight into disease process Status: Acute (9) CHF (congestive heart failure): Problem details: - no clinical evidence of exacerbation - continue home medications - TTE 05/11: Final Impressions: 1. Technically limited exam. 2. Normal left ventricular size, moderately increased wall thickness, normal global systolic function, calculated EF of 64 %. 3. Right ventricular cavity size is normal, global systolic RV function is normal. 4. Normal left atrium size. 5. The aortic valve is sclerotic, no stenosis and trivial regurgitation. 6. The mitral valve is sclerotic, trace mitral regurgitation. 7. Tricuspid valve is normal. 8. 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 9. The aortic sinus is dilated with a maximal diameter of 3.9 cm. 10. No pericardial effusion. Status: Chronic (10) BPH (benign prostatic hyperplasia): Problem details: - Stable on Flomax Status: Chronic (11) CHANELL (obstructive sleep apnea): Problem details: Noncompliant with CPAP. Status: Chronic (12) Permanent atrial fibrillation: Problem details: - rate controlled on Coreg, anticoagulated on Apixaban Status: Chronic (13) Skin ulcer of buttock: Problem details: - in addition to R ankle, followed by wound care team - chronic without evidence of acute infection Status: Acute (14) General patient noncompliance: Status: Chronic Plan 1. Patient agreeable with above stated plans and recommendations. Time Spent With Patient Total time spent: 35 minutes Subjective Time Seen by Provider: 09:00 Date Seen: 05/15/23 Interval history: Hospital day 5. Patient admitted for observation to the hospital on 05/11/2023. Found to have a urinary tract infection, grew out Serratia marcescens sensitive to IV ceftriaxone for which he was started on empirically. Was ready for discharge on to home with his partner. At time of discharge yesterday, his partner indicated she could no longer care for him. We thus had an unsafe discharge plan at that juncture, because patient does need 24 hour cares at this time. Thus he was admitted to the hospital yesterday for inpatient care as we sort through potentially safe discharge disposition plans. He indicates he is feeling better and well now. Has no concerns or complaints. Denies chest heaviness, pressure, tightness or pain. Denies dyspnea at rest, paroxysmal nocturnal dyspnea, orthopnea. Acknowledges baseline dyspnea with exertion. Eating and drinking without difficulties. Denies diarrhea or constipation. Denies dysuria, urgency, frequency, hematuria. Still needing support with some of his ADLs. Exam Narrative: Exam Narrative: Examined patient in his hospital room and as he is walking in the hallways. Appears comfortable and in no acute distress. Vision and hearing are grossly adequate. Alert and oriented to self, place, time, situation. Talkative, friendly. Lungs are clear to auscultation. Heart tones with regular rhythm. Abdomen with active bowel sounds, soft. Right lower extremity with trace edema. Left lower extremity status post [id number] amputation. Has prosthesis in place. Standby assist with use of his walker for transfers, station, and gait. Const: Vital Signs, click to edit/add: Vital Signs - 24 hr 05/14/23 13:58 05/14/23 14:17 05/14/23 19:00 Temperature 97.5 F L 97.6 F Pulse Rate [Pulse Oximeter] 55 L 55 L 54 L Respiratory Rate 16 16 16 Blood Pressure [Le ft Arm] 136/63 Pulse Oximetry 96 99 Oxygen Delivery Me thod Room Air Room Air 05/14/23 23:00 05/15/23 03:00 05/15/23 07:00 Temperature 97.6 F Pulse Rate [Pulse Oximeter] 63 47 L Respiratory Rate 16 16 20 Blood Pressure [Le ft Arm] 150/78 H Pulse Oximetry 96 Oxygen Delivery Me thod Room Air 05/15/23 07:00 Temperature 97.6 F Pulse Rate [Pulse Oximeter] 47 L Respiratory Rate 20 Blood Pressure [Le ft Arm] 148/73 H Pulse Oximetry 97 Oxygen Delivery Me thod Room Air
--- NOTE | 2023-05-15 13:19 | P.IMHP_ITS ---
Hospitalist- H&P: HPI History of Present Illness Date Seen: 05/15/23 Chief complaint: Weakness Narrative: Diego Guthrie is a 73 year old male [facility] Medical History (Updated 05/13/23 @ 12:22 by Jasmina Chinchilla MD) Pancreatic mass ?K86.89 - Other specified diseases of pancreas (ICD-10) Chondritis of auricle ?H61.039 - Chondritis of external ear, unspecified ear (ICD-10) Urinary retention ?R33.9 - Retention of urine, unspecified (ICD-10) Basal cell carcinoma (BCC) of right ear ?C44.212 - Basal cell carcinoma of skin of right ear and external auricular canal (ICD-10) Swelling of lower limb ?M79.89 - Other specified soft tissue disorders (ICD-10) Primary hypertension ?I10 - Essential (primary) hypertension (ICD-10) Mixed hyperlipidemia ?E78.2 - Mixed hyperlipidemia (ICD-10) Facial basal cell cancer ?C44.310 - Basal cell carcinoma of skin of unspecified parts of face (ICD-10) Hypothyroidism ?E03.9 - Hypothyroidism, unspecified (ICD-10) Diabetic neuropathy ?E11.40 - Type 2 diabetes mellitus with diabetic neuropathy, unspecified (ICD-10) Type 2 diabetes mellitus ?E11.9 - Type 2 diabetes mellitus without complications (ICD-10) Immunocompromised, acquired ?D84.9 - Immunodeficiency, unspecified (ICD-10) CHF (congestive heart failure) ?I50.9 - Heart failure, unspecified (ICD-10) BPH (benign prostatic hyperplasia) ?N40.0 - Benign prostatic hyperplasia without lower urinary tract symptoms (ICD-10) Thrombocytopenia ?D69.6 - Thrombocytopenia, unspecified (ICD-10) Pneumonia (06/01/22) ?J18.9 - Pneumonia, unspecified organism (ICD-10) Daytime hypersomnia ?G47.10 - Hypersomnia, unspecified (ICD-10) DOVE (dyspnea on exertion) ?R06.09 - Other forms of dyspnea (ICD-10) CHANELL (obstructive sleep apnea) ?G47.33 - Obstructive sleep apnea (adult) (pediatric) (ICD-10) Skin ulcer of buttock ?L98.419 - Non-pressure chronic ulcer of buttock with unspecified severity (ICD-10) Thyroid nodule ?E04.1 - Nontoxic single thyroid nodule (ICD-10) Major depression ?F32.9 - Major depressive disorder, single episode, unspecified (ICD-10) Vitamin D deficiency (11/20/11) ?E55.9 - Vitamin D deficiency, unspecified (ICD-10) Proliferative diabetic retinopathy ?E11.3599 - Type 2 diabetes mellitus with proliferative diabetic retinopathy without macular edema, unspecified eye (ICD-10) Permanent atrial fibrillation (01/11/22) ?I48.21 - Permanent atrial fibrillation (ICD-10) Hyperparathyroidism due to renal insufficiency (01/27/10) ?N25.81 - Secondary hyperparathyroidism of renal origin (ICD-10) History of adenomatous polyp of colon (01/01/14) ?Z86.010 - Personal history of colonic polyps (ICD-10) Generalized anxiety disorder ?F41.1 - Generalized anxiety disorder (ICD-10) General patient noncompliance ?Z91.19 - Patient's noncompliance with other medical treatment and regimen (ICD-10) Erectile dysfunction (07/30/06) ?N52.9 - Male erectile dysfunction, unspecified (ICD-10) Enrolled in chronic care management ?Z78.9 - Other specified health status (ICD-10) Chronic kidney disease ?N18.9 - Chronic kidney disease, unspecified (ICD-10) Surgical History (Updated 05/11/23 @ 12:04 by Jasmina Chinchilla MD) Skin cancer (03/24/21) ?C44.90 - Unspecified malignant neoplasm of skin, unspecified (ICD-10) Renal transplant recipient (2013) ?Z94.0 - Kidney transplant status (ICD-10) History of vitrectomy ?Z98.890 - Other specified postprocedural states (ICD-10) History of panretinal photocoagulation ?Z98.890 - Other specified postprocedural states (ICD-10) History of cataract extraction ?Z98.49 - Cataract extraction status, unspecified eye (ICD-10) 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 No children. 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 Grew up in [place], [place]. Wears glasses. No dentures. No hearing aids. One brother in [place]. No drugs, no alcohol, distant smoking history. Parents . What is your current living situation?: I presently have a place to live Problems where you live: no known problems Problems where you live details: No known problems In the past 12 months, utilities in danger of being shut off: no In past 12 months, lack of transportation kept you from medical appts, meetings, work, or getting things needed for daily living: no In the past 12 mos, have been you worried that your food would run out before you had money to buy more?: never true In the past 12 mos, the food you bought just didn't last and you didn't have money to buy more?: never true Highest level of school completed/degree received: Bachelor's degree Smoking Status: Never smoker Do you use any of these nicotine containing products: None Second hand tobacco smoke exposure: No How often do you have a drink containing alcohol: never How often do you have six or more drinks on one occasion: Never AUDIT-C Alcohol total score: 0 Non-prescribed substance use: denies use Caffeine: No How often does anyone, including family, friends and others, physically hurt you : never How often does anyone, including family, friends and others, insult or talk down to you: never How often does anyone, including family, friends and others, threaten you with harm: never How often does anyone, including family, friends and others, scream or curse at you: never Little interest or pleasure in doing things: not at all Feeling down, depressed, or hopeless: not at all service: No Meds Home Medications and Allergies Home Medications Medication Instructions Recorded Confirmed Type tacrolimus 0.5 mg capsule, 0.5 mg PO BID 12/06/22 05/10/23 History immediate-release apixaban 2.5 mg tablet (Eliquis) 2.5 mg PO BID 05/10/23 05/10/23 History carvedilol 25 mg tablet 25 mg PO BID 05/10/23 05/10/23 History Allergies Allergy/AdvReac Type Severity Reaction Status Date / Time lisinopril Allergy Unknown Unknown Verified 05/10/23 20:32 Exam Const: Vital Signs, click to edit/add: Vital Signs - 24 hr 05/14/23 13:58 05/14/23 14:17 05/14/23 19:00 Temperature 97.5 F L 97.6 F Pulse Rate [Pulse Oximeter] 55 L 55 L 54 L Respiratory Rate 16 16 16 Blood Pressure [Le ft Arm] 136/63 Pulse Oximetry 96 99 Oxygen Delivery Me thod Room Air Room Air 05/14/23 23:00 05/15/23 03:00 05/15/23 07:00 Temperature 97.6 F Pulse Rate [Pulse Oximeter] 63 47 L Respiratory Rate 16 16 20 Blood Pressure [Le ft Arm] 150/78 H Pulse Oximetry 96 Oxygen Delivery Me thod Room Air 05/15/23 07:00 Temperature 97.6 F Pulse Rate [Pulse Oximeter] 47 L Respiratory Rate 20 Blood Pressure [Le ft Arm] 148/73 H Pulse Oximetry 97 Oxygen Delivery [place] thod Room Air
[2023-05-15 15:00] VITALS: BP 124/65; PULSE 54; RESP 20; TEMP 36.4; O2SAT 96
[2023-05-15 19:00] VITALS: BP 135/72; PULSE 61; RESP 18; TEMP 36.4; O2SAT 100
[2023-05-15] MEDS: ROSUVASTATIN CALCIUM 10 MG TABLET PO (20:57)
[2023-05-15 23:00] VITALS: BP 154/81; PULSE 53; RESP 18; TEMP 36.4; O2SAT 99
[2023-05-16 03:00] VITALS: BP 158/67; PULSE 62; RESP 14; TEMP 36.4; O2SAT 96
[2023-05-16] MEDS: cefTRIAXone 1 GM in 0.9 % SODIUM CHLORIDE Mini-bag 100 ML IVPB (03:09)
--- NOTE | 2023-05-16 04:25 | PC.NURSE ---
PATIENT PLEASANT AND COOPERATIVE, ALERT AND ORIENTED, UP A1 WALKER AND BELT, DECLINING PAIN, PT MENTIONED FEELING WORRIED ABOUT A REHAB STAY, REASSURED PT WITH RELIEF.
[2023-05-16 08:00] VITALS: BP 146/69; PULSE 57; RESP 14; RESP 18; TEMP 36.9; O2SAT 98
[2023-05-16 08:27] LABS: Chloride* 112 mmol/L (96-114)
[2023-05-16 08:28] LABS: Albumin* 3.4 g/dL (3.3-5.0); Sodium* 144 mmol/L (135-149)
[2023-05-16 08:30] LABS: Anion Gap 10 mEq/L (7-15); Blood Urea Nitrogen* 71 mg/dL (7-30); Carbon Dioxide* 22 mmol/L (20-32); Creatinine* 2.9 mg/dL (0.5-1.5); Estimated Glomerular Filt Rate 22 ml/min
[2023-05-16 08:31] LABS: Calcium* 9.6 mg/dL (8.4-10.6); Glucose* 72 mg/dL (60-115)
[2023-05-16] MEDS: LEVOTHYROXINE 88 MCG TABLET PO (09:35)
[2023-05-16] MEDS: APIXABAN 5 MG TABLET 2.5 MG PO ×2 (09:35→21:30)
[2023-05-16] MEDS: carvediloL 25 MG TABLET PO ×2 (09:35→21:30)
[2023-05-16] MEDS: POTASSIUM CHLORIDE 10 MEQ CAPSULE ER 20 MEQ PO ×2 (09:36→18:35)
[2023-05-16] MEDS: TORSEMIDE 20 MG TABLET 40 MG PO (09:36)
[2023-05-16] MEDS: OMEPRAZOLE 20 MG CAPSULE DR 40 MG PO (09:36)
[2023-05-16] MEDS: PREGABALIN 75 MG CAPSULE 150 MG PO ×2 (09:36→21:37)
[2023-05-16] MEDS: mycophenolate mofetiL 250 MG CAPSULE 750 MG PO ×2 (09:37→21:31)
[2023-05-16] MEDS: ESCITALOPRAM 10 MG TABLET 20 MG PO (09:37)
[2023-05-16] MEDS: TACROLIMUS 0.5 MG CAPSULE PO ×2 (09:37→21:31)
[2023-05-16] MEDS: TAMSULOSIN HCL 0.4 MG CAPSULE 0.8 MG PO (09:37)
[2023-05-16] MEDS: NYSTATIN POWDER 1 APPLIC TOPICAL ×2 (09:37→21:31)
[2023-05-16] MEDS: SODIUM CHLORIDE 0.9 % (FLUSH) 10 ML SYRINGE 5 ML IVF ×2 (09:38→21:31)
--- NOTE | 2023-05-16 12:41 | P.IMPN_ITS ---
Progress Note: A&P Assessment and plan (1) UTI (urinary tract infection): Problem details: - on Ceftriaxone (05/11) - culture + for Serratia, sensitive to Ceftriaxone - anticipated discharging of 05/13 on course of Omnicef, but he was not discharged on that date due to his partner suddenly indicating that she will no longer be able to care for him in their home Status: Acute (2) Urinary retention: Status: Acute (3) Weakness: Problem details: - likely multifactorial (UTI, CHF exacerbation, multiple comorbidities) - urine culture pending, TTE pending - therapies following, SNF recommended upon discharge - patient had refused SNF on 05/13, indicating that he would like to go home with partner and HH, understands risk - patient now willing to go to long-term facility since his partner refuses to care for him in their home Status: Acute (4) CKD (chronic kidney disease): Problem details: - with MICHELLE - baseline creatinine ~2.6, discharge creatinine on 05/13/23 is 3.3 - h/o renal transplant remotely - continue anti-rejection meds, follow closely - reviewed case with Gretta Peacock, database coordinator ([phone]) on 05/12. She is aware of patient's MICHELLE and will contact him for outpatient f/u Status: Acute (5) Hyponatremia: Problem details: - mild, normal when corrected for hyperglycemia Status: Acute (6) Pancreatic mass: Problem details: - EUS with biopsy ([facility], 01/2021), no overt malignancy on path, presumed IPMN Status: Acute (7) Basal cell carcinoma (BCC) of right ear: Status: Acute (8) Type 2 diabetes mellitus: Problem details: - continue home insulin, accuchecks, sliding scale - A1C typically 9-11, poor insight into disease process or subjective awareness of hypoglycemia - hold morning dose of short-acting insulin and decrease evening dose of long- acting insulin by 25%. Status: Acute (9) CHF (congestive heart failure): Problem details: - no clinical evidence of exacerbation - continue home medications - TTE 05/11: Final Impressions: 1. Technically limited exam. 2. Normal left ventricular size, moderately increased wall thickness, normal global systolic function, calculated EF of 64 %. 3. Right ventricular cavity size is normal, global systolic RV function is normal. 4. Normal left atrium size. 5. The aortic valve is sclerotic, no stenosis and trivial regurgitation. 6. The mitral valve is sclerotic, trace mitral regurgitation. 7. Tricuspid valve is normal. 8. 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 9. The aortic sinus is dilated with a maximal diameter of 3.9 cm. 10. No pericardial effusion. Status: Chronic (10) BPH (benign prostatic hyperplasia): Problem details: - Stable on Flomax Status: Chronic (11) CHANELL (obstructive sleep apnea): Problem details: Noncompliant with CPAP. Status: Chronic (12) Permanent atrial fibrillation: Problem details: - rate controlled on Coreg, anticoagulated on Apixaban Status: Chronic (13) Skin ulcer of buttock: Problem details: - in addition to R ankle, followed by wound care team - chronic without evidence of acute infection Status: Acute (14) General patient noncompliance: Status: Chronic Plan 1. Reviewed impression and plans as specified above with patient. 2. Answered his questions likes 9 3. Patient is agreeable Time Spent With Patient Total time spent: 40 minutes Subjective Time Seen by Provider: 07:30 Date Seen: 05/16/23 Interval history: Hospital day 6. Patient admitted for observation to the hospital on 05/11/2023. Found to have a urinary tract infection, grew out Serratia marcescens sensitive to IV ceftriaxone for which he was started on empirically. Was ready for discharge on to home with his partner. At time of discharge yesterday, his partner indicated she could no longer care for him. We thus had an unsafe discharge plan at that juncture, because patient does need 24 hour cares at this time. Thus he was admitted to the hospital yesterday for inpatient care as we sort through potentially safe discharge disposition plans. He indicates he is feeling better and well now than when he 1st came to the hospital. This morning he said he did not feel quite himself. Fingerstick blood glucose 1st thing in the morning was low at 64. Ate breakfast. Morning insulin held. Blood sugar improved to the 130s. Fell closer to himself afterward. Denies chest heaviness, pressure, tightness or pain. Denies dyspnea at rest, paroxysmal nocturnal dyspnea, orthopnea. Acknowledges baseline dyspnea with exertion. Eating and drinking without difficulties. Denies diarrhea or constipation. Denies dysuria, urgency, frequency, hematuria. Still needing support with some of his ADLs. Exam Narrative: Exam Narrative: Examine him in his hospital room. Appears comfortable no acute distress. Vision and hearing are grossly adequate. Lungs clear to auscultation. Heart tones with regular rhythm. Abdomen benign. Left lower extremity [id number] amputation. Right lower extremity with trace edema pretibially bilaterally. Const: Vital Signs, click to edit/add: Vital Signs - 24 hr 05/15/23 15:00 05/15/23 15:00 05/15/23 19:00 Temperature 97.5 F L 97.6 F Pulse Rate [Pulse Oximeter] 54 L 54 L 61 Respiratory Rate 20 20 18 Blood Pressure [Le ft Arm] 124/65 135/72 Pulse Oximetry 96 100 Oxygen Delivery Me thod Room Air Room Air 05/15/23 23:00 05/16/23 03:00 Temperature 97.6 F 97.6 F Pulse Rate [Pulse Oximeter] 53 L 62 Respiratory Rate 18 14 Blood Pressure [Le ft Arm] 154/81 H 158/67 H Pulse Oximetry 99 96 Oxygen Delivery Me thod Room Air Room Air Documenting provider has reviewed patient's vital signs: yes Labs Labs: Laboratory Results - last 24 hr 05/16/23 08:01 Sodium 144 Potassium 4.0 Chloride 112 Carbon Dioxide 22 Anion Gap 10 BUN 71 H Creatinine 2.9 H Estimated Creat Clear 24.90 Estimated GFR 22 Glucose 72 Calcium 9.6 Phosphorus 4.0 Albumin 3.4
[2023-05-16 13:00] VITALS: BP 162/80; PULSE 56; RESP 18; TEMP 36.7; O2SAT 97
[2023-05-16] MEDS: TORSEMIDE 20 MG TABLET PO (13:14)
--- NOTE | 2023-05-16 13:37 | NUTR.NU ---
RDN with nutrition screen for skin ulcer of buttock in addition to right ankle. Patient is followed by wound care team. Per chart calculator, patient has been eating 75-100% of most meals recorded since admission. Weight fluctuations noted within weight history likely r/t diuretic use and CHF diagnosis. Weight history: 287lbs 05/11/23, 297lbs 03/24/23, 280lbs 01/24/23, 280lbs 12/06/22, 291lbs 10/04/22, 198lbs 09/14/22, 312lbs 04/29/22. Weight changes not significant at this time. RDN discussed nutrition for wound healing. Encouraged adequate protein at meals and snacks. Discussed multivitamin as appropriate. Patient verbalized understanding. RDN contact information was provided and patient was encouraged to call with questions. Patient declined all nutritional supplements to promote wound healing at this time. Per MD note, patient's partner is unable to care for him at home. Patient needs safe discharge plan. RDN will follow PRN.
[2023-05-16 15:00] VITALS: BP 160/85; PULSE 52; RESP 16; TEMP 36.6; O2SAT 97
--- NOTE | 2023-05-16 16:00 | PC.NURSE ---
VSS AND AFEBRILE. LS CLEAR. BLOOD SUGAR AT BEGINNING OF SHIFT 64. PATIENT WAS DROWSY AND LETHARGIC. OJ GIVEN AND BREAKFAST ORDERED. RECHECK OF BLOOD SUGAR 1 HOUR AFTER BREAKFAST WAS 137. DR. UMANA UPDATED AND AM INSULIN HELD PER MD. UP WITH A1, WALKER AND GAIT BELT AND TOLERATED ACTIVITY WELL. DENIED PAIN OR N/V. LUNCH BLOOD SUGAR WAS 173. PATIENT HAD LARGE BM.
--- NOTE | 2023-05-16 16:26 | PC.SOCIAL ---
Discharge planning- Met with pt in room. Recommendations per therapy is SNF short-term rehab. Pt is in agreement. Will follow up with SNF's that information was previously sent to. Contacted the following SNF's for possible placement. 1. [facility]- Information was faxed last week. Phone call to Yudi in admissions at [phone]. [facility] is declining pt for admission. 2. [facility] in [place]- Information was faxed last week. Phone call to Nani Braswell in admissions at [phone]. Nani confirms the bed was given to another pt last week and there is no availability. 3. [facility] in [place]- Information was faxed last week. Phone call to Alisson in admissions at [phone]. Left a voicemail and re-faxed referral packet. 4. [facility] in [place]- Phone call to Antony in admissions at [phone]. There are no openings this week. 5. [facility] in [facility]- Phone call to admissions at [phone]. Left a voicemail inquiring on bed availability. 6. [facility]- Phone call to Jeanette in admissions at [phone]. There are openings and they will review referral. Faxed referral to [phone]. Social work will continue to follow up as needed.
[2023-05-16 19:00] VITALS: PULSE 55; RESP 16; TEMP 36.4; O2SAT 98
[2023-05-16] MEDS: ROSUVASTATIN CALCIUM 10 MG TABLET PO (21:30)
[2023-05-16 23:00] VITALS: BP 146/82; PULSE 58; RESP 16; TEMP 36.3; O2SAT 94
--- NOTE | 2023-05-16 23:20 | PC.NURSE ---
Elevated BP, bradycardic, otherwise VSS, RA. Denies pain. Tolerating regular diet, eating 100%. Drinking lots of fluids. Adequate UOP, BM today. Skin irritation in groin- nystatin applied. PIV, SL'd. Up in chair most of evening. Awaiting placement. Will continue to monitor, follow POC, and keep pt and caregiver updated. Anna Robbins RN
[2023-05-17] MEDS: cefTRIAXone 1 GM in 0.9 % SODIUM CHLORIDE Mini-bag 100 ML IVPB (02:52)
--- NOTE | 2023-05-17 05:17 | PC.NURSE ---
End of Shift Note: Have only taken care of patient since 299. He has been sleeping. Did saline lock his IV after his antibiotic. Report received is that he had not slept for previous nurse so did not awake him since he was sleeping. Will continue to monitor until next shift arrives.
[2023-05-17 07:00] VITALS: BP 158/85; PULSE 60; RESP 16; RESP 18; TEMP 36.5; O2SAT 97
[2023-05-17] MEDS: OMEPRAZOLE 20 MG CAPSULE DR 40 MG PO (08:30)
[2023-05-17] MEDS: LEVOTHYROXINE 88 MCG TABLET PO (08:30)
[2023-05-17] MEDS: POTASSIUM CHLORIDE 10 MEQ CAPSULE ER 20 MEQ PO ×2 (09:38→17:47)
[2023-05-17] MEDS: TORSEMIDE 20 MG TABLET 40 MG PO (09:38)
[2023-05-17] MEDS: carvediloL 25 MG TABLET PO ×2 (09:39→20:36)
[2023-05-17] MEDS: APIXABAN 5 MG TABLET 2.5 MG PO ×2 (09:39→20:36)
[2023-05-17] MEDS: ESCITALOPRAM 10 MG TABLET 20 MG PO (09:39)
[2023-05-17] MEDS: NYSTATIN POWDER 1 APPLIC TOPICAL ×2 (09:40→20:37)
[2023-05-17] MEDS: TAMSULOSIN HCL 0.4 MG CAPSULE 0.8 MG PO (09:40)
[2023-05-17] MEDS: TACROLIMUS 0.5 MG CAPSULE PO ×2 (09:41→20:37)
[2023-05-17] MEDS: mycophenolate mofetiL 250 MG CAPSULE 750 MG PO ×2 (09:41→20:37)
[2023-05-17] MEDS: PREGABALIN 75 MG CAPSULE 150 MG PO ×2 (09:42→20:36)
[2023-05-17 11:00] VITALS: BP 139/56; PULSE 56; RESP 16; TEMP 36.4; O2SAT 98
[2023-05-17] MEDS: TORSEMIDE 20 MG TABLET PO (12:25)
--- NOTE | 2023-05-17 13:01 | PM.IMPN1 ---
Progress Note: A&P Assessment and plan (1) UTI (urinary tract infection): Problem details: - on Ceftriaxone (05/11) - culture + for Serratia, sensitive to Ceftriaxone - anticipated discharging of 05/13 on course of Omnicef, but he was not discharged on that date due to his partner suddenly indicating that she will no longer be able to care for him in their home Status: Acute (2) Urinary retention: Status: Acute (3) Weakness: Problem details: - likely multifactorial (UTI, CHF exacerbation, multiple comorbidities) - urine culture pending, TTE pending - therapies following, SNF recommended upon discharge - patient had refused SNF on 05/13, indicating that he would like to go home with partner and HH, understands risk - patient now willing to go to senior care facility since his partner refuses to care for him in their home Status: Acute (4) CKD (chronic kidney disease): Problem details: - with MICHELLE - baseline creatinine ~2.6, discharge creatinine on 05/13/23 is 3.3 - h/o renal transplant remotely - continue anti-rejection meds, follow closely - reviewed case with Gretta Peacock, cooperative education coordinator ([phone]) on 05/12. She is aware of patient's MICHELLE and will contact him for outpatient f/u Status: Acute (5) Hyponatremia: Problem details: - mild, normal when corrected for hyperglycemia Status: Acute (6) Pancreatic mass: Problem details: - EUS with biopsy ([facility], 01/2021), no overt malignancy on path, presumed IPMN Status: Acute (7) Basal cell carcinoma (BCC) of right ear: Status: Acute (8) Type 2 diabetes mellitus: Problem details: - continue home insulin, accuchecks, sliding scale - A1C typically 9-11, poor insight into disease process or subjective awareness of hypoglycemia - hold morning dose of short-acting insulin and decrease evening dose of long-acting insulin by 25%. Status: Acute (9) CHF (congestive heart failure): Problem details: - no clinical evidence of exacerbation - continue home medications - TTE 05/11: Final Impressions: 1. Technically limited exam. 2. Normal left ventricular size, moderately increased wall thickness, normal global systolic function, calculated EF of 64 %. 3. Right ventricular cavity size is normal, global systolic RV function is normal. 4. Normal left atrium size. 5. The aortic valve is sclerotic, no stenosis and trivial regurgitation. 6. The mitral valve is sclerotic, trace mitral regurgitation. 7. Tricuspid valve is normal. 8. 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 9. The aortic sinus is dilated with a maximal diameter of 3.9 cm. 10. No pericardial effusion. Status: Chronic (10) BPH (benign prostatic hyperplasia): Problem details: - Stable on Flomax Status: Chronic (11) CHANELL (obstructive sleep apnea): Problem details: Noncompliant with CPAP. Status: Chronic (12) Permanent atrial fibrillation: Problem details: - rate controlled on Coreg, anticoagulated on Apixaban Status: Chronic (13) Skin ulcer of buttock: Problem details: - in addition to R ankle, followed by wound care team - chronic without evidence of acute infection Status: Acute (14) General patient noncompliance: Status: Chronic Plan 1. Continues to warrant placement. Our bilingual social worker staff is working on trying to establish a safe discharge disposition plan for him. 2. Continue with supportive efforts. 3. Patient agreeable to above stated plans and recommendations. Time Spent With Patient Total time spent: 30 minutes Subjective Time Seen by Provider: 09:00 Date Seen: 05/17/23 Interval history: Hospital day 7. Patient admitted for observation to the hospital on 05/11/2023. Found to have a urinary tract infection, grew out Serratia marcescens sensitive to IV ceftriaxone for which he was started on empirically. Was ready for discharge on to home with his partner. At time of discharge yesterday, his partner indicated she could no longer care for him. We thus had an unsafe discharge plan at that juncture, because patient does need 24 hour cares at this time. Thus he was admitted to the hospital yesterday for inpatient care as we sort through potentially safe discharge disposition plans. No further episodes of hypoglycemia. No longer has symptoms of hypoglycemia. Eating and drinking well. Feels closer to his baseline self. Denies chest heaviness, pressure, tightness or pain. Denies dyspnea at rest, paroxysmal nocturnal dyspnea, orthopnea. Acknowledges baseline dyspnea with exertion. Eating and drinking without difficulties. Denies diarrhea or constipation. Denies dysuria, urgency, frequency, hematuria. Still needing support with some of his ADLs. Exam Narrative: Exam Narrative: Examined patient in his hospital room. Appears comfortable and in no acute distress. Vision and hearing are grossly adequate. Alert and oriented to self and place, time, and in great measure to situation. Poor insight. Poor problem-solving abilities. Still warrants supervisory cares. Articulate and cooperative. Lungs are clear to auscultation. Heart tones with regular rhythm. Abdomen is obese with active bowel sounds. Right lower extremity with trace edema. 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 Const: Vital Signs, click to edit/add: Vital Signs - 24 hr 05/16/23 15:00 05/16/23 15:00 05/16/23 19:00 Temperature 97.9 F 97.6 F Pulse Rate [Pulse Oximeter] 52 L 52 L 55 L Respiratory Rate 16 16 16 Blood Pressure [Le ft Arm] 160/85 H Pulse Oximetry 97 98 Oxygen Delivery Me thod Room Air 05/16/23 23:00 05/16/23 23:00 05/17/23 07:00 Temperature 97.4 F L Pulse Rate [Pulse Oximeter] 58 L 58 L 60 Respiratory Rate 16 16 16 Blood Pressure [Le ft Arm] 146/82 H Pulse Oximetry 94 Oxygen Delivery Me thod Room Air 05/17/23 07:00 Temperature 97.7 F Pulse Rate [Pulse Oximeter] 60 Respiratory Rate 18 Blood Pressure [Le ft Arm] 158/85 H Pulse Oximetry 97 Oxygen Delivery Me thod Room Air Documenting provider has reviewed patient's vital signs: yes
[2023-05-17 15:00] VITALS: BP 161/78; PULSE 62; RESP 12; O2SAT 95
--- NOTE | 2023-05-17 16:21 | PC.SOCIAL ---
Contacted the following SNF's for possible placement. 1. [facility] in [place]- Information was faxed last week. Phone call to Alisson in admissions at [phone]. Alisson informs that there are no male beds available at this time. 2. [facility] in [facility]- Phone call to admissions at [phone]. Left a follow up voicemail inquiring on bed availability. 3. [facility]- Phone call to Jeanette in admissions at [phone]. There are openings and they will review referral. Faxed referral to [phone]. 4. [facility] in [place]- Phone call to Marissa in admissions at [phone]. Left a voicemail inquiring on availability and faxed referral to [phone]. 5. [facility] ([facility])- Phone call to Janet in admissions at [phone]. Left a voicemail inquiring on availability and faxed referral to [phone]. Social work will continue to follow up as needed.
[2023-05-17 19:00] VITALS: BP 153/78; PULSE 54; RESP 16; TEMP 36.6; O2SAT 99
--- NOTE | 2023-05-17 20:00 | PC.NURSE ---
Nursing Care Hours: [id number] Pt alert and oriented, calm and cooperative. Assist x1 with walker and gait belt. Eating and drinking sufficiently, voiding in toilet. No c/o pain. Nystatin to bilat groins for redness. Bandage on buttocks CDI.
[2023-05-17] MEDS: SODIUM CHLORIDE 0.9 % (FLUSH) 10 ML SYRINGE 5 ML IVF ×2 (20:35→20:37)
[2023-05-17] MEDS: ROSUVASTATIN CALCIUM 10 MG TABLET PO (20:36)
[2023-05-17 22:43] VITALS: BP 139/78; PULSE 53; RESP 18; TEMP 36.7; O2SAT 98
[2023-05-18] MEDS: cefTRIAXone 1 GM in 0.9 % SODIUM CHLORIDE Mini-bag 100 ML IVPB (02:32)
[2023-05-18] MEDS: SODIUM CHLORIDE 0.9 % (FLUSH) 10 ML SYRINGE 5 ML IVF ×2 (02:33→09:33)
[2023-05-18] MEDS: 0.9 % SODIUM CHLORIDE 250 ml IV (02:35)
[2023-05-18 02:57] VITALS: BP 155/80; PULSE 48; RESP 18; TEMP 36.7; O2SAT 93
--- NOTE | 2023-05-18 05:14 | PC.NURSE ---
[phone] Pt up in recliner in the evening, slept well during night in bed. denies pain. no concerns overnight
[2023-05-18] MEDS: OMEPRAZOLE 20 MG CAPSULE DR 40 MG PO (05:51)
[2023-05-18] MEDS: LEVOTHYROXINE 88 MCG TABLET PO (05:51)
[2023-05-18] MEDS: POTASSIUM CHLORIDE 10 MEQ CAPSULE ER 20 MEQ PO (07:55)
[2023-05-18 07:58] VITALS: BP 168/89; PULSE 59; RESP 18; TEMP 36.2; O2SAT 99
[2023-05-18] MEDS: APIXABAN 5 MG TABLET 2.5 MG PO (09:30)
[2023-05-18] MEDS: TAMSULOSIN HCL 0.4 MG CAPSULE 0.8 MG PO (09:30)
[2023-05-18] MEDS: ESCITALOPRAM 10 MG TABLET 20 MG PO (09:31)
[2023-05-18] MEDS: carvediloL 25 MG TABLET PO (09:31)
[2023-05-18] MEDS: NYSTATIN POWDER 1 APPLIC TOPICAL (09:34)
[2023-05-18] MEDS: TACROLIMUS 0.5 MG CAPSULE PO (09:36)
[2023-05-18] MEDS: mycophenolate mofetiL 250 MG CAPSULE 750 MG PO (09:37)
[2023-05-18] MEDS: PREGABALIN 75 MG CAPSULE 150 MG PO (09:39)
[2023-05-18] MEDS: TORSEMIDE 20 MG TABLET 40 MG PO (09:40)
[2023-05-18 11:00] VITALS: BP 148/77; PULSE 72; RESP 18; TEMP 36.9; O2SAT 97
--- NOTE | 2023-05-18 11:59 | P.IMPN_ITS ---
Progress Note: A&P Assessment and plan (1) UTI (urinary tract infection): Problem details: - on Ceftriaxone (05/11) - culture + for Serratia, sensitive to Ceftriaxone - anticipated discharging of 05/13 on course of Omnicef, but he was not discharged on that date due to his partner suddenly indicating that she will no longer be able to care for him in their home Status: Acute (2) Urinary retention: Status: Acute (3) Weakness: Problem details: - likely multifactorial (UTI, CHF exacerbation, multiple comorbidities) - urine culture pending, TTE pending - therapies following, SNF recommended upon discharge - patient had refused SNF on 05/13, indicating that he would like to go home with partner and HH, understands risk - condition improving sufficiently such that will ask our physical therapy and occupational therapy staff the question is to whether not it might be safe for him to go home with his friend and home health support Status: Acute (4) CKD (chronic kidney disease): Problem details: - with MICHELLE - baseline creatinine ~2.6, discharge creatinine on 05/16/23 is 2.9 - h/o renal transplant remotely - continue anti-rejection meds, follow closely - reviewed case with Gretta Peacock, field operations coordinator ([phone]) on 05/12. She is aware of patient's MICHELLE and will contact him for outpatient f/u Status: Acute (5) Hyponatremia: Problem details: - mild, normal when corrected for hyperglycemia Status: Acute (6) Pancreatic mass: Problem details: - EUS with biopsy ([facility], 01/2021), no overt malignancy on path, presumed IPMN Status: Acute (7) Basal cell carcinoma (BCC) of right ear: Status: Acute (8) Type 2 diabetes mellitus: Problem details: - continue home insulin, accuchecks, sliding scale - A1C typically 9-11, poor insight into disease process or subjective awareness of hypoglycemia - hold morning dose of short-acting insulin and decrease evening dose of long- acting insulin by 25%. Status: Acute (9) CHF (congestive heart failure): Problem details: - no clinical evidence of exacerbation - continue home medications - TTE 05/11: Final Impressions: 1. Technically limited exam. 2. Normal left ventricular size, moderately increased wall thickness, normal global systolic function, calculated EF of 64 %. 3. Right ventricular cavity size is normal, global systolic RV function is normal. 4. Normal left atrium size. 5. The aortic valve is sclerotic, no stenosis and trivial regurgitation. 6. The mitral valve is sclerotic, trace mitral regurgitation. 7. Tricuspid valve is normal. 8. 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 9. The aortic sinus is dilated with a maximal diameter of 3.9 cm. 10. No pericardial effusion. Status: Chronic (10) BPH (benign prostatic hyperplasia): Problem details: - Stable on Flomax Status: Chronic (11) HCANELL (obstructive sleep apnea): Problem details: Noncompliant with CPAP. Status: Chronic (12) Permanent atrial fibrillation: Problem details: - rate controlled on Coreg, anticoagulated on Apixaban Status: Chronic (13) Skin ulcer of buttock: Problem details: - in addition to R ankle, followed by wound care team - chronic without evidence of acute infection Status: Acute (14) General patient noncompliance: Status: Chronic Plan 1. Will work with patient and his roommate on the possibility of patient returning home with home health services. 2. Will stop IV antibiotics at this time 3. Continue with probiotic for a minimum of 1 month beyond the time he completes the antibiotic 4. He will need to continue to work with his renal transplant team 5. Patient agreeable with above stated plans Time Spent With Patient Total time spent: 35 minute Subjective Time Seen by Provider: 08:30 Date Seen: 05/18/23 Interval history: Hospital day 8. Patient admitted for observation to the hospital on 05/11/2023. Found to have a urinary tract infection, grew out Serratia marcescens sensitive to IV ceftriaxone for which he was started on empirically. Was ready for discharge on to home with his partner. At time of discharge yesterday, his partner indicated she could no longer care for him. We thus had an unsafe discharge plan at that juncture, because patient does need 24 hour cares at this time. Thus he was admitted to the hospital yesterday for inpatient care as we sort through potentially safe discharge disposition plans. Fasting glucose again low this morning without symptoms. Improved after eating. Eating and drinking well. Denies chest heaviness, pressure, tightness or pain. Denies dyspnea at rest, paroxysmal nocturnal dyspnea, orthopnea. Acknowledges baseline dyspnea with exertion. Eating and drinking without difficulties. Denies diarrhea or constipation. Denies dysuria, urgency, frequency, hematuria. Still needing support with some of his ADLs, but much improved compared to few days ago. Will confer with physical and occupational therapy about the possibility of patient going home with home health support plus his roommate. Exam Narrative: Exam Narrative: Examined patient in his hospital room. Appears comfortable and in no acute distress. Vision and hearing are grossly adequate. Alert and oriented to self, place, time, and for the most part to situation - sometimes it takes a while for him to process that he actually does need help and support. Friendly, articulate, cooperative. Mood and affect are congruent. Lungs remain clear to auscultation. Heart tones with regular rhythm. Abdomen with active bowel sounds, soft, nontender. Ambulates with walker and his left [id number] prosthesis. Const: Vital Signs, click to edit/add: Vital Signs - 24 hr 05/17/23 15:00 05/17/23 15:00 05/17/23 19:00 Temperature 97.9 F Pulse Rate [Pulse Oximeter] 62 62 54 L Respiratory Rate 12 12 16 Blood Pressure [Le ft Arm] 161/78 H 153/78 H Pulse Oximetry 95 99 Oxygen Delivery Me thod Room Air Room Air 05/17/23 22:43 05/18/23 02:57 05/18/23 07:58 Temperature 98.0 F 98.0 F 97.1 F L Pulse Rate [Pulse Oximeter] 53 L 48 L 59 L Respiratory Rate 18 18 18 Blood Pressure [Le ft Arm] 139/78 155/80 H 168/89 H Pulse Oximetry 98 93 99 Oxygen Delivery Me thod Room Air Room Air Room Air Documenting provider has reviewed patient's vital signs: yes
[2023-05-18] MEDS: TORSEMIDE 20 MG TABLET PO (13:10)
--- NOTE | 2023-05-18 16:27 | PC.SOCIAL ---
Addendum entered by GUY Saha 05/20/23 15:11: Phone call to [facility] and they reviewed pt and were unable to accept due to pt needs and staffing. Discussed with [facility] to re-assess and they are unable to accept due to staffing. Original Note: Discharge plans- Met with pt in pt's room as pt was requesting to go home instead of SNF. Discussed with therapy and pt is moving well and toileting on his own today. This worker and pt discussed his progress. Pt would like to go home with home care in place. Pt gives this worker permission to contact his roommate (Tete) to discuss discharge plans. Phone call to pt's roommate Tete and discussed discharge plans. Provided an update on pt's status with therapy. Tete is comfortable with pt returning home with home care in place. Provided update to charge nurse and MD. Completed face to face for home care orders. Contacted the following home care agencies to get home care in place. 1. [facility] to [place] (Ext. [phone]). They are unable to accept referral. 2. [facility] to intake at [phone]. [facility] is unable to accept referral due to not having nursing staff available. 3. [facility] to intake at [phone]. They will assess referral and call this worker back. Faxed referral to [phone]. Social work will continue to follow up as needed.
--- NOTE | 2023-05-18 18:00 | PC.NURSE ---
shift note: pt up 1/walker. pt denies pain. LS clr. Reviewed a.m BS @ [address] Ding. gave 8oz of OJ and rechecked BS in 30 mins @100. Pt ate full breakfast. Dr. Ding changed insulin orders. wound care orders reviewed with Dr. Tate and Dr. Ding. Wound care performed to rt buttock per D.O. Rt ankle sore drschuck changed per D.O. both wound beds intact with minimal serous drainage. IV dc'd,intact. Reviewed dc instructions; copies sent with pt at ne. Belongings reviewed and sent with pt at ne.
--- NOTE | 2023-05-19 14:57 | PM.DS1 ---
DS: Providers Provider Time Seen by Provider: 10:00 Date Seen: 05/18/23 Date of admission: 05/13/23 15:17 Primary care physician: Momo Forbes MD Admitting Clinician: German Capone MD Consults: 05/11/23 01:54 Consult to Physical Therapy [CONS] Routine Comment: Reason(s) for PT Consult:: Evaluate and Treat Any Restrictions?:: See Comment Comment: SHALINI amputee 05/11/23 02:00 Consult to Occupational Therapy [CONS] Routine Comment: Reason(s) for OT Consult:: Evaluate and Treat Any Restrictions?:: See Comment Comment: SHALINI amputee 05/12/23 09:59 Consult to Route Carrier [CONS] Routine Comment: needs SNF - will be medically ready for d/c 05/13 Reason for Consult:: Discharge Planning Needs Attending Physician on discharge: Iraj Julian MD Date of Discharge: 05/18/23 DS: Diagnosis Discharge Diagnosis (1) Weakness: Status: Acute Problem details: - likely multifactorial (UTI, CHF exacerbation, multiple comorbidities) - urine culture pending, TTE pending - therapies following, SNF recommended upon discharge - patient had refused SNF on 05/13, indicating that he would like to go home with partner and HH, understands risk - condition improving sufficiently such that will ask our physical therapy and occupational therapy staff the question is to whether not it might be safe for him to go home with his friend and home health support (2) UTI (urinary tract infection): Status: Acute Problem details: - on IV Ceftriaxone (05/11-05/18/2013) - culture + for Serratia, sensitive to Ceftriaxone - anticipated discharging of 05/13 on course of Omnicef, but he was not discharged on that date due to his partner suddenly indicating that she will no longer be able to care for him in their home (3) Pressure ulcer of unspecified buttock, stage 2: Status: Acute (4) Chronic venous hypertension (idiopathic) with ulcer of right lower extremity: Status: Acute (5) Urinary retention: Status: Acute (6) Chronic kidney disease, stage 4, severely decreased GFR: Status: Acute Problem details: GFR 25 (7) Chronic diastolic heart failure with preserved ejection fraction: Status: Acute (8) Pancreatic mass: Status: Acute Problem details: - EUS with biopsy ([facility], 01/2021), no overt malignancy on path, 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 She is aware of patient's MICHELLE and will contact him for outpatient f/u (10) Hyponatremia: Status: Acute Problem details: - mild, normal when corrected for hyperglycemia (11) Swelling of lower limb: Status: Acute Problem details: Status post left szzyu-jec-bdlo amputation (12) Buttock wound: Status: Acute (13) Peripheral neuropathy: Status: Acute (14) Hypertension: Status: Acute Problem details: (15) Hyperlipidemia: Status: Acute (16) Extremity amputee: Status: Acute (17) Charcot's joint of foot due to diabetes: Status: Acute (18) Diabetic neuropathy: Status: Acute (19) Type 2 diabetes mellitus: Status: Acute Problem details: - continue home insulin, accuchecks, sliding scale - A1C typically 9-11, poor insight into disease process or subjective awareness of hypoglycemia - hold morning dose of short-acting insulin and decrease evening dose of long-acting insulin by 25%. 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 Follows / [facility] transplant Team. On CellCept and tacrolimus. DS: Summary Hospital Course Hospital Course: Latrell was admitted to the hospital on 05/11 for concerns of acute on chronic weakness. He was also found to have a UTI and elevated creatinine on admission. Urine culture + for Serratia, ceftriaxone initiated on admission. Patient seen by therapies during stay, who recommended SNF upon discharge. Patient refused SNF upon initial attempt to discharge, understanding risk of not following this recommendation; patient is high risk for readmission given multiple comorbidities and noncompliance. Home health referral placed. At this juncture his roommate refuse to take care of him. Thus he remained in hospital until such time as we could either find a transitional care service for him in a senior care facility or until his condition improved. It turned out to be the latter. There were no rooms available in senior care facilities around the region and his condition improved sufficiently that he was able to go back home with support from his roommate. Comorbidities with notable findings listed above. No changes made to home medications, in-hospital he did complete an 8 day course of IV ceftriaxone for treatment of a UTI. Status at Discharge Functional status at discharge: uses cane/walker Overall status at discharge: patient is progressing back to baseline Time Spent with Patient Time attestation: Total time spent providing and/or coordinating discharge services: Time spent: Greater than 30 minutes Exam Narrative: Exam Narrative: Examined patient in his hospital room. Appears comfortable and in no acute distress. Vision and hearing are grossly adequate. Alert and oriented to self, place, time, and for the most part to situation - sometimes it takes a while for him to process that he actually does need help and support. Friendly, articulate, cooperative. Mood and affect are congruent. Lungs remain clear to auscultation. Heart tones with regular rhythm. Abdomen with active bowel sounds, soft, nontender. Ambulates with walker and his left dmxzu-gdh-qrut prosthesis. Const: Documenting provider has reviewed patient's vital signs: yes DS: Data Data Completed and Pending Completed studies during hospitalization: Procedures Introduction of Other Gas into Respiratory Tract, Via Natural or Artificial Opening (07/10/22) Imaging Chest x-ray: Radiologist's impression: IMPRESSIONS: 1. Mild pulmonary vascular congestion with bibasilar subsegmental atelectasis is noted. 2. Mild to moderate stable cardiomegaly is seen. Discharge Plan Discharge Disposition: Home w/ Parent or Adult Date of Admission: 05/13/23 15:17 Attending Provider on Discharge: Iraj Julian Primary Care Provider: Momo Forbes Condition: Stable Anticipated Discharge Date/Time: 05/18/23 14:30 Discharge Medications: New nystatin 100,000 unit/gram Powder 1 applic topical BID 14 Days Qty: 30 0RF torsemide 20 mg Tablet 40 mg PO DAILY@0800 30 Days Qty: 60 0RF Continued escitalopram oxalate 20 mg tablet 20 mg PO DAILY Qty: 90 3RF pantoprazole 40 mg tablet,delayed release (DR/EC) 40 mg PO DAILY Qty: 90 3RF mycophenolate mofetil 250 mg capsule 750 mg PO BID Qty: 180 3RF rosuvastatin 10 mg tablet 10 mg PO HS Qty: 90 3RF tamsulosin 0.4 mg capsule 0.8 mg PO DAILY Qty: 180 3RF potassium chloride 20 mEq tablet extended release 20 meq PO BID Qty: 180 3RF tacrolimus 0.5 mg capsule 0.5 mg PO BID zolpidem [Ambien] 10 mg tablet 10 mg PO QHS PRN (Reason: insomnia) Qty: 30 2RF carvedilol 25 mg tablet 25 mg PO BID Eliquis 2.5 mg tablet 2.5 mg PO BID insulin detemir U-100 100 unit/mL (3 mL) insulin pen 40 unit subcut HS Qty: 30 5RF insulin aspart U-100 [Novolog FlexPen U-100 Insulin] 100 unit/mL (3 mL) insulin pen 15 unit subcut TIDWM Qty: 15 5RF insulin lispro [Humalog KwikPen Insulin] 100 unit/mL insulin pen 15 unit subcut TID Qty: 30 2RF pregabalin 150 mg capsule 150 mg PO BID Qty: 60 1RF levothyroxine 88 mcg tablet 88 mcg PO QDAY Qty: 90 0RF Discontinued torsemide 20 mg tablet See Rx Instructions PO BID Qty: 90 5RF Rx Instructions: orally twice a day; 2 Qam and 1 Qnoon ciprofloxacin HCl 500 mg tablet 500 mg PO QDAY Qty: 10 0RF Discharge Orders: Discharge Order (Routine); Ordered 05/18/23 Ordered By: Iraj Julian Patient Education: Torsemide (By mouth), Cefdinir (By mouth), Urinary Tract Infection in Men (DC), Weakness (DC) Additional Instructions: New prescriptions at [facility]. Home Health referral has been placed upon discharge: Nurse to help with wound cares on Mondays and Fridays (Wound Clinic on Wednesdays) and help with diabetes management efforts; home PT and OT to evaluate and treat; home safety assessment and recommendations. DO YOUR HOME EXERCISES TWICE/DAY to help with strengthening. See wound care clinic and Dr. Forbes next week Activity Level: Activity as Tolerated and No strenuous activity Discharge Diet: Diabetic Follow Up Appointments: Wound,Clinic [Other] - 05/25/23 11:00 am (TuesdayMay 25 at 11am) Momo Forbes MD [Primary Care Provider] - 05/26/23 11:00 am ([facility]CNadia Graham ) Forms: MyHealth Info Instructions
--- NOTE | 2023-05-20 16:17 | PC.SOCIAL ---
Phone call to the following home care agencies for home care. 1. [facility]- Phone call to intake at [phone]. There are no home care openings. 2. [facility]- Phone call to intake at [phone]. No answer, left a voicemail. 3. [facility]- Phone call to intake at [phone]. They have openings and can potentially accept the referral. Faxed referral to [phone]. Social work will follow up as needed.
--- NOTE | 2023-05-23 12:26 | PC.SOCIAL ---
Follow up phone call to [facility] at [phone]. Verified that the referral was received and is being processed. Jb informs they will reach out to this worker and to pt. Social work will follow up as needed.
== END 2023-05-18 15:30 | disposition home health service (06) | DRG 689 ==
LOC: ED 05-11 01:03 → MEDSURG 05-11 01:05
PROVIDERS: Family Medicine; Internal Medicine; Admitting Provider Family Medicine; Emergency Provider Family Medicine; PCP Family Medicine; Visit Provider Family Medicine
DX: N39.0 Urinary tract infection, site not specified (principal); I50.43 Acute on chronic combined systolic (congestive) and diastolic (congestive) heart failure; N17.9 Acute kidney failure, unspecified; N18.4 Chronic kidney disease, stage 4 (severe); I13.0 Hypertensive heart and chronic kidney disease with heart failure and stage 1 through stage 4 chronic kidney disease, or unspecified chronic kidney disease; I48.21 Permanent atrial fibrillation; Z94.0 Kidney transplant status; E87.1 Hypo-osmolality and hyponatremia; L97.319 Non-pressure chronic ulcer of right ankle with unspecified severity; R53.1 Weakness; E11.40 Type 2 diabetes mellitus with diabetic neuropathy, unspecified; E11.3599 Type 2 diabetes mellitus with proliferative diabetic retinopathy without macular edema, unspecified eye; E11.22 Type 2 diabetes mellitus with diabetic chronic kidney disease; E11.610 Type 2 diabetes mellitus with diabetic neuropathic arthropathy; Z99.2 Dependence on renal dialysis; Z79.4 Long term (current) use of insulin; D13.6 Benign neoplasm of pancreas; L89.302 Pressure ulcer of unspecified buttock, stage 2; I87.2 Venous insufficiency (chronic) (peripheral); D89.49 Other mast cell activation disorder; Z91.199 Patient's noncompliance with other medical treatment and regimen due to unspecified reason; G47.33 Obstructive sleep apnea (adult) (pediatric); F32.9 Major depressive disorder, single episode, unspecified; Z89.512 Acquired absence of left leg below knee; F41.1 Generalized anxiety disorder; N40.1 Benign prostatic hyperplasia with lower urinary tract symptoms; R33.8 Other retention of urine; B96.89 Other specified bacterial agents as the cause of diseases classified elsewhere; Z79.01 Long term (current) use of anticoagulants; C44.212 Basal cell carcinoma of skin of right ear and external auricular canal; E03.9 Hypothyroidism, unspecified; Z85.07 Personal history of malignant neoplasm of pancreas; Z85.828 Personal history of other malignant neoplasm of skin; E78.5 Hyperlipidemia, unspecified
CPT/HCPCS: 36415; 51798; 71045; 80048; 80053; 80069; 80076; 81001; 82962; 83605; 83880; 84145; 84484; 85025; 85651; 86140; 87040; 87086; 87186; 87631; 93005; 93306; 94761; 97110; 97112; 97116; 97162; 97165; 97530; 97535; 99284; 99285; A9270; G0378; J0696; J7050; J7507

== ENCOUNTER 2023-05-25 11:26 | Outpatient (CLI) | payer MEDICARE, BC, SELFPAY | END 2023-05-25 11:27 | disposition home or self-care (01) | LOC: WOUND 11:26 | PROVIDERS: PCP Family Medicine; Visit Provider Surgery | DX: L89.512 Pressure ulcer of right ankle, stage 2 (principal) | CPT/HCPCS: 97597 ==

== ENCOUNTER 2023-06-22 10:32 | Outpatient (CLI) | payer MEDICARE, BC, SELFPAY | END 2023-06-22 10:33 | disposition home or self-care (01) | PROVIDERS: PCP Family Medicine; Visit Provider Surgery | DX: L89.512 Pressure ulcer of right ankle, stage 2 (principal) | CPT/HCPCS: 97597 ==

== ENCOUNTER 2023-07-19 11:20 | Outpatient (CLI) | payer MEDICARE, BC, SELFPAY ==
--- OUTSIDE RECORDS SUMMARY | 2023-07-19 12:33 | XMS_ITS | Continuity of Care Document ---
Author Name Unknown Organization [facility] Address [address] [address] [place] [address] Phone Care Team Providers Care Supervisor Aircraft Cleaning Name Role Phone No Information Unavailable Unavailable Procedures Procedure Date Ugi Endo; W/us Guid Asp/bx Subsqt Hosp-da E&m Minr Compl Init Hosp-da E&m Mod Severity 1 Advance Directives Directive Yes / No Effective Date File Name No Information Encounters Encounter Description Practice Location Reason(s) For Visit Diagnoses Date Provider Providers Copied on Encounter [facility], [address] [address], [place], [id number], [place] tel:[phone] No Information No Information [facility], [address] [address], [place], [id number], [place] tel:[phone] [facility] No Information Darling Cannon. [address] [facility], [facility] [address], [place], [place], [id number], [place]. tel:[phone] Referring Provider: Davis Hastings MD, [address] [facility] [address], [place], [address] . tel:[phone] [facility], [address] [address], [place], [id number], [place] tel:[phone] [facility] Pancreas cyst Sunny Franco. [address] [facility], [facility] [address] [place] [address], [id number], [place]. tel:[phone] [facility], [address] [address], [place], [id number], [place] tel:[phone] [facility] [place] [facility] Pancreas cyst 1 Nesset TOP FLAVOR ATTENDANT Joan. [address] [facility], [address] [address], [place], [place], [id number], [place]. tel:[phone] [facility], [address] [address], [place], [id number], [place] tel:[phone] [facility] Pancreas cyst 1 Nesset TOP FLAVOR ATTENDANT Joan. [address], [id number], [place]. tel:[phone] Subsqt Hosp-da E&m Minr Compl [facility], [address] [address], [place], [id number], [place] tel:[phone] [facility] No Information 1 Nesset TOP FLAVOR ATTENDANT Joan. [address] [address], [place], [place], [id number], [place]. tel:[phone] Referring Provider: Alexandria Fletcher, [address] [place] [address], [address]. tel:[phone] Init Hosp-da E&m Mod Severity [facility], [address] [address], [place], [id number], [place] tel:[phone] [facility] No Information 1 Prem Alfaro. [address], [id number], [place]. tel:[phone] Referring Provider: Alexandria Banuelos CNP M, [address] [place] [address], [address]. tel:[phone] Family History Family Member Type Diagnosis Age [...] name Insurance type Covered alliance party ID Authoriza tialvarez(s) No Information Social [...]
== END 2023-07-19 11:21 | disposition home or self-care (01) ==
LOC: NFLDREF 12:31
PROVIDERS: PCP Family Medicine; Referring Provider Family Medicine; Visit Provider Family Medicine
DX: R35.0 Frequency of micturition (principal)
CPT/HCPCS: 81015; 87086

== ENCOUNTER 2023-07-20 10:53 | Outpatient (CLI) | payer MEDICARE, BC, SELFPAY ==
--- OUTSIDE RECORDS SUMMARY | 2023-07-20 10:57 | XMS_ITS | Continuity of Care Document ---
Author Name Unknown Organization [facility] Address [address] [place] [address] Phone Care Team Providers Care Journey Lineman Name Role Phone Bebo Peñaloza DO Unavailable [...] [facility], [address], [place], [address], tel:[phone] No Information 3 Jh Lagunas. [facility] [address], [place], [address], [place]. tel:[phone] Family History Family Member Type Diagnosis Age [...]
== END 2023-07-20 10:54 | disposition home or self-care (01) ==
LOC: WOUND 10:54
PROVIDERS: PCP Family Medicine; Visit Provider Surgery
DX: I87.311 Chronic venous hypertension (idiopathic) with ulcer of right lower extremity (principal); L97.812 Non-pressure chronic ulcer of other part of right lower leg with fat layer exposed
CPT/HCPCS: 97597

== ENCOUNTER 2023-07-27 09:05 | Outpatient (CLI) | payer MEDICARE, BC, SELFPAY | END 2023-07-27 09:06 | disposition home or self-care (01) | LOC: WOUND 09:05 | PROVIDERS: PCP Family Medicine; Visit Provider Surgery | DX: L97.812 Non-pressure chronic ulcer of other part of right lower leg with fat layer exposed (principal); L89.312 Pressure ulcer of right buttock, stage 2; I87.311 Chronic venous hypertension (idiopathic) with ulcer of right lower extremity | CPT/HCPCS: 11042; 97597 ==

== ENCOUNTER 2023-08-03 11:11 | Outpatient (CLI) | payer MEDICARE, BC, SELFPAY | END 2023-08-03 11:12 | disposition home or self-care (01) | LOC: WOUND 11:11 | PROVIDERS: PCP Family Medicine; Visit Provider Physician Assistant | DX: I87.311 Chronic venous hypertension (idiopathic) with ulcer of right lower extremity (principal); L97.812 Non-pressure chronic ulcer of other part of right lower leg with fat layer exposed; L89.322 Pressure ulcer of left buttock, stage 2; L89.312 Pressure ulcer of right buttock, stage 2 | CPT/HCPCS: 97597 ==

== ENCOUNTER 2023-08-11 09:07 | Outpatient (RCR) | payer MEDICARE, BC, SELFPAY ==
[2023-08-11] MEDS: SODIUM CHLORIDE 0.9 % (FLUSH) 10 ML SYRINGE IVF (08:55)
[2023-08-11] MEDS: REGADENOSON 0.4 MG/5 ML SYRINGE IVP (08:55)
[2023-08-11 10:10] VITALS: BP 185/77; PULSE 77
--- NOTE | 2023-08-11 10:41 | W.PM.STED ---
Stress Test Note Date Date of test: 08/11/23 Providers Primary care provider: Momo Forbes Stress test physician: Alejandro Kitchen Stress Test Note Stress test ordered: Lexiscan Indication for test: Chest pain Stress test medicine: Lexiscan Results discussion: Patient is a very nice gentleman who presents for the above test, after discussion the risks benefits side effects he would like to proceed, cardiac stress test medical history form is reviewed. Pretest EKG, irregular rhythm, with a ventricular rate of 69, appears to be atrial fibrillation. Left anterior fascicular block, blood pressure 174 and 82, no acute ST wave changes, assessment normal EKG. At rest. Standard Lexiscan protocol with infusion over 5 minute. Is done, XR was 154, which is 123% of the target. He had no chest pain, he had some nonspecific diffuse symptoms. Likely due to the infusion of Lexiscan. There was a lot artifact on the monitor, but no specific ST wave changes are noted suggestive ischemia. Impression: Negative electrographic portion of Lexiscan, resting EKG abnormal Follow up suggested: Await nuclear images report, these will be read by nuclear Medicine, clinical correlation with these will be needed, patient left this testing facility in good condition.
== END 2023-08-23 23:59 | disposition home or self-care (01) ==
LOC: STRESS 09:07
PROVIDERS: PCP Family Medicine; Visit Provider Family Medicine
DX: R07.9 Chest pain, unspecified (principal)
CPT/HCPCS: 78452; 93016; 93017; A9500; J2785

== ENCOUNTER 2023-08-16 12:56 | Outpatient (CLI) | payer MEDICARE, BC, SELFPAY | END 2023-08-16 12:57 | disposition home or self-care (01) | PROVIDERS: PCP Family Medicine; Visit Provider Family Medicine | DX: Z01.818 Encounter for other preprocedural examination (principal); E11.9 Type 2 diabetes mellitus without complications; I10 Essential (primary) hypertension; R35.0 Frequency of micturition; N18.4 Chronic kidney disease, stage 4 (severe); R53.1 Weakness | CPT/HCPCS: 80048; 81015; 85025; 87086; 87186 ==

== ENCOUNTER 2023-08-17 11:00 | Outpatient (CLI) | payer MEDICARE, BC, SELFPAY | END 2023-08-17 11:01 | disposition home or self-care (01) | LOC: WOUND 11:00 | PROVIDERS: PCP Family Medicine; Visit Provider Physician Assistant Surgical | DX: L89.313 Pressure ulcer of right buttock, stage 3 (principal); I87.311 Chronic venous hypertension (idiopathic) with ulcer of right lower extremity; L97.812 Non-pressure chronic ulcer of other part of right lower leg with fat layer exposed | CPT/HCPCS: 11042 ==

== ENCOUNTER 2023-08-23 09:42 | Outpatient (CLI) | payer MEDICARE, BC, SELFPAY | END 2023-08-23 09:43 | disposition home or self-care (01) | LOC: WOUND 09:42 | PROVIDERS: PCP Family Medicine; Visit Provider Physician Assistant | DX: L89.313 Pressure ulcer of right buttock, stage 3 (principal); S81.001A Unspecified open wound, right knee, initial encounter | CPT/HCPCS: 97597 ==

== ENCOUNTER 2023-08-31 13:03 | Outpatient (CLI) | payer MEDICARE, BC, SELFPAY ==
--- OUTSIDE RECORDS SUMMARY | 2023-08-31 13:06 | XMS_ITS | Encounter Summary ---
Author Name Unknown Organization [facility] Address [address] [place] [address] Care Team Providers Care Graphics Artist Name Role Phone Dannie Davalosgumaro Kirby APRN, C.N.P., M.S.N. Primary C are Provider Encounter Details Date Type Department Care Team (Late st Contact Info) Description 08/03/2023 Orders Only Department of General Surgery in [place], [place] [address], [place] [address] Jessica Bradley, C.N.A. [address] [place] [phone] Social History Tobacco Use Types Packs/Day Years Used Date Smoking Tobacco: Former Cigars Smokeless Tobacco: Never Nutrition Answer Date Recorded Nutrition: EVOO Fat Source Unknown 03/05 Nutrition: Servings of Fruits/Vegetables per Day Not on file 03/05/2022 Dental Answer Date Recorded Dental: Regular Dentist Unknown 03/05/20 Sex and Gender Information Value Date Recorded Sex Assigned at Not on file Gender Identity Not on file Sexual Orientation Not on file documented as of this encounter Plan of Treatment Upcoming Encounters Date Type Department Care Team (Late st Contact Info) Description 09/01/2023 11:30 AM VEGETABLE WORKER Office Visit Department of Urology in [place], [place] [address], [place] [address] Antonia Krause APRN, C.N.P. [address] [phone] documented as of this encounter Visit Diagnoses Not on filedocumented in this encounter Care Teams Graphics Artist Relationship Specialty Start Date End Date Manoj Davalos APRN, C.N.P., M.S.N. [address] [place] [address] PCP - General Internal Medicine 06/30/23 08/10/23 documented as of this encounter
--- OUTSIDE RECORDS SUMMARY | 2023-08-31 13:06 | XMS_ITS | Encounter Summary ---
Author Name Unknown Organization [facility] Address [address] [place] [address] Care Team Providers Care Medical Affairs Leader Name Role Phone Niyah Davalosanatoliy Kirby APRN, C.N.P., M.S.N. Primary C are Provider Encounter Details Date Type Department Care Team (Latest Contact Info) Description 08/01/2023 1:30 PM BRASS FINISHER - 08/01/2023 11:59 PM [facility] Hospital Encounter Department of Laboratory Medicine in [place], [place] [address] [place] [phone] Ebenezer Sanchez M.D. [address] [place] [phone] Urinary Tract Infection Site Not Specified; Retention Urinary Discharge Disposition: Home or Self Care Social History Tobacco Use Types Packs/Day Years [...] Sig Dispensed Refills Start Date End Date apixaban (ELIQUIS) 2.5 mg tablet Take 1 tablet (2.5 mg total) by mouth 2 (two) times a day. 60 tablet 0 07/11/2023 escitalopram (LEXAPRO) 20 mg tablet Take 1 tablet (20 mg total) by mouth daily. 30 tablet 0 07/11/2023 insulin detemir U-100 (Levemir FlexPen) 100 unit/mL (3 mL) injection Inject 42 Units under the skin at bedtime. 12.6 mL 0 07/11/2023 insulin lispro (HumaLOG U-100 Insulin) 100 unit/mL injection Inject 42 Units under the skin 3 (three) times a day with meals. Sliding scale 150-199-3U, 200-249-6U 250-299-9U, 300-399 12U, 399+ 18 U and call MD 40 mL 0 07/11/2023 levothyroxine (SYNTHROID, LEVOTHROID) 88 mcg tablet Take 1 tablet (88 mcg total) by mouth daily. 30 tablet 0 07/11/2023 mycophenolate (CELLCEPT) 250 mg capsule Take 3 capsules (750 mg total) by mouth every 12 (twelve) hours. 180 capsule 0 07/11/2023 NIFEdipine (ADALAT CC) 60 mg ER tablet Take 1 tablet (60 mg total) by mouth daily. 30 tablet 0 07/11/2023 rosuvastatin (CRESTOR) 10 mg tablet Take 1 tablet (10 mg total) by mouth at bedtime. 30 tablet 0 07/11/2023 tacrolimus (PROGRAF) 0.5 mg capsuleIndications:pr evention of kidney transplant rejection Take 1 capsule (0.5 mg total) by mouth 2 (two) times a day Indications: prevent kidney transplant rejection. 60 capsule 0 07/11/2023 tamsulosin (FLOMAX) 0.4 mg 24 hr capsule Take 1 capsule (0.4 mg total) by mouth 2 (two) times a day. 60 capsule 11 07/11/2023 07/10/2024 torsemide 40 mg tablet Take 40 mg by mouth daily. 60 tablet 0 07/11/2023 melatonin 3 mg tabletIndications:Ins omnia Take 1 tablet (3 mg total) by mouth at bedtime. 30 tablet 0 07/11/2023 08/10/2023 pantoprazole (PROTONIX) 40 mg EC tablet Take 1 tablet (40 mg total) by mouth every morning before breakfast. 30 tablet 0 07/11/2023 08/10/2023 potassium chloride (K-TAB) 20 mEq CR tablet Take 1 tablet (20 mEq total) by mouth 2 (two) times a day. 60 tablet 0 07/11/2023 08/10/2023 documented as of this encounter Plan of Treatment Upcoming Encounters Date Type Department Care Team (Late st Contact Info) Description 09/01/2023 11:30 AM BRASS FINISHER Office Visit Department of Urology in [place], [place] [address], [place] [address] Antonia Krause APRN, C.N.P. [address], [place] [address] documented as of this encounter Procedures Procedure Name Priority Date/Time Associated Diagnosis Comments BACTERIAL CULTURE, AEROBIC + SUSC, URINE Routine 08/01/2023 1:20 PM BRASS FINISHER Urinary Tract Infection Site Not Specified Retention Urinary documented in this encounter Results * (ABNORMAL) Bacterial Culture, Aerobic + Susceptibility, Urine (08/01/2023 1:20 PM BRASS FINISHER) Urine Culture SERRATIA MARCESCENS >100,000 cfu/mL (A) 08/03/2023 7:03 AM BRASS FINISHER MKTO Urine (Urine, Midstream) 08/01/2023 1:20 PM BRASS FINISHER 08/01/2023 6:48 PM BRASS FINISHER Comment:Specimen Source Site : Urine Narrative Organism Antibiotic Method Susceptibility Serratia marcescens Ceftazidime SUSCEPTIBILI TY, SHAILESH (MCG/ML) <=1 mcg/mL: Susceptible Serratia marcescens Ceftriaxone SUSCEPTIBILI TY, SHAILESH (MCG/ML) 2 mcg/mL: Intermediate Serratia marcescens Cefepime SUSCEPTIBILI TY, SHAILESH (MCG/ML) <=1 mcg/mL: Susceptible Serratia marcescens Aztreonam SUSCEPTIBILI TY, SHAILESH (MCG/ML) <=1 mcg/mL: Susceptible Serratia marcescens Ertapenem SUSCEPTIBILI TY, SHAILESH (MCG/ML) <=0.5 mcg/mL: Susceptible Serratia marcescens Meropenem SUSCEPTIBILI TY, SHAILESH (MCG/ML) <=0.25 mcg/mL: Susceptible Serratia marcescens Gentamicin SUSCEPTIBILI TY, SHAILESH (MCG/ML) <=1 mcg/mL: Susceptible Serratia marcescens Tobramycin SUSCEPTIBILI TY, SHAILESH (MCG/ML) 2 mcg/mL: Susceptible Serratia marcescens Levofloxacin SUSCEPTIBILI TY, SHAILESH (MCG/ML) 0.5 mcg/mL: Susceptible Serratia marcescens Nitrofurantoin SUSCEPTIBILI TY, SHAILESH (MCG/ML) >=512 mcg/mL: Resistant Serratia marcescens Trimethoprim + Sulfamethoxazole SUSCEPTIBILITY, SHAILESH (MCG/ML) <=20 mcg/mL: Susceptible Ebenezer Sanchez M.D. LAB MICROBIOLOGY - [place] [address], [facility] in [place] [address] [place] [address] documented in this encounter Visit Diagnoses Diagnosis Urinary Tract Infection Site Not Specified Retention Urinary documented in this encounter Care Teams Medical Affairs Leader Relationship Specialty Start Date End Date Manoj Davalos APRN, C.N.P., M.S.N. [address] [place] [phone] PCP - General Internal Medicine 06/30/23 08/10/23 documented as of this encounter
--- OUTSIDE RECORDS SUMMARY | 2023-08-31 13:06 | XMS_ITS | Encounter Summary ---
Author Name Unknown Organization [facility] Address [address] [place] [address] Care Team Providers Care Host/Hostess Head Name Role Phone Niyah Davalosanatoliy Kirby APRN, C.N.P., M.S.N. 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 [address] [phone] Ebenezer Sanchez M.D. [address] [phone] Referral ID Status Reason Start Date Expiration Date V isits Requested Visits Authorized [id number] Authorized 08/08/2023 08/07/2024 1 1 SFER SPECIALIST Reason for Visit * Reason Comments Procedure * Appointment Request (Routine) - Closed Specialty Diagnoses / Procedures Referred By Contac t Referred To Contact Urology Referral ID Status Reason Start Date Expiration Date Visits Re quested Visits Authorized [id number] Closed 05/09/2023 05/08/2024 1 1 Encounter Details Date Type Department Care Team (Late st Contact Info) Description 08/08/2023 1:30 PM TRANSFER SPECIALIST Office Visit Department of Urology in [place], [place] [address] [phone] Ebenezer Sanchez M.D. [address] [phone] Cystitis Recurrent; Other Urethral 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 Social History Tobacco Use Types Packs/Day Years [...] on file documented as of this encounter Procedure Notes * Ebenezer Sanchez M.D. - 08/08/2023 1:30 PM CST CHIEF COMPLAINT / REASON FOR VISIT Cystoscopy. The patient was appropriately identified with at least two separate identifiers and the correct procedure was confirmed. Verbal consent was obtained. INDICATION: Meatal stenosis, urethral stricture, recurrent urinary tract infections. Still on Eliquis. Recent documented infection, started on antibiotics one week ago. INSTRUMENT: Flexible cystourethroscope. ANESTHESIA: 2% aqueous lidocaine jelly introduced into the urethra. PROCEDURE: The patient was placed in a supine position. The genitalia were prepped and draped sterilely. The urethra was anesthetized with 2% aqueous lidocaine jelly. The cystoscope was advanced intothe urethra. FINDINGS: Meatus: Normal. Urethra: Dense stricture of the fossa navicularis. Once this was identified it was elected to conclude procedure. The procedure was well tolerated by the patient. He was discharged from the office in satisfactory condition. Post-cystoscopy instructions were reviewed with him. IMPRESSION: 1. 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 Recurrent urinary tract infection 3. Chronic anticoagulation 4. Renal transplant, chronic immunosuppression PLAN: We will schedule him to have cystoscopy and urethral dilation sometime in the near future, this will be done in the office setting. Per patient request, Ativan is sent to his pharmacy, 0.5 mg. He is to take this approximately 1 hour prior to the procedure. He will need to have a drive away driver. We will ask him to discontinue the Eliquis at least 72 hours prior to the planned procedure. We will be contacting his primary team to see if he should be on Lovenox in the interval. He will need a urine culture one week prior to the planned procedure. A positive we will need to treat this. The patient is advised that urethral strictures tend to be recurrent. Likely give him a self urethral dilator, to be used after we have succeeded in opening the tract. Ebenezer Sanchez M.D. 08/08/23 2:09 PM TRANSFER SPECIALIST SFER SPECIALIST documented in this encounter Plan of Treatment Upcoming Encounters Date Type Department Care Team (Late st Contact Info) Description 09/01/2023 11:30 AM TRANSFER SPECIALIST Office Visit Department of Urology in [place], [place] [address] [phone] Antonia Krause APRN, C.N.P. [address] [phone] Scheduled Orders Name Type Priority Associated Diagnoses Orde r Schedule Bacterial Culture, Aerobic + Susceptibility, Urine Microbiology Routine Cystitis Recurrent Other Urethral 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 Expected: 08/15/2023 (Approximate), Expires: 11/06/2024 documented as of this encounter Visit Diagnoses Diagnosis Cystitis Recurrent Other Urethral 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 documented in this encounter Care Teams Host/Hostess Head Relationship Specialty Start Date End Date Manoj Davalos APRN, C.N.P., M.S.N. [address] [place] [phone] PCP - General Internal Medicine 06/30/23 08/10/23 documented as of this encounter
--- OUTSIDE RECORDS SUMMARY | 2023-08-31 13:06 | XMS_ITS | Clinical Summary ---
Author Name Unknown Organization [facility] Address [address] [place] [address] Care Team Providers Care Mobile Sales Assistant Name Role Phone Elsewhere, Pcp Primary Care Provider Unavailabl e Source Comments Patient records contain information from all sites at [facility]. For routine questions regarding patient records, call [phone] during business hours, M-F 8:00 AM - 5:00 PM Central Time. Record requests for emergency care only can be directed to [phone] at any time.[facility] Allergies Active Allergy Reactions Criticality Noted Date Comments Lisinopril Cough 05/14/2014 Medications Medication Sig Dispensed Refills Start Date End Date Status torsemide 40 mg tablet Take 40 mg by mouth daily. 60 tablet 0 07/11/2023 Active tacrolimus (PROGRAF) 0.5 mg capsuleIndicatio ns:prevention of kidney transplant rejection Take 1 capsule (0.5 mg total) by mouth 2 (two) times a day Indications: prevent kidney transplant rejection. 60 capsule 0 07/11/2023 Active NIFEdipine (ADALAT CC) 60 mg ER tablet Take 1 tablet (60 mg total) by mouth daily. 30 tablet 0 07/11/2023 Active apixaban (ELIQUIS) 2.5 mg tablet Take 1 tablet (2.5 mg total) by mouth 2 (two) times a day. 60 tablet 0 07/11/2023 Active escitalopram (LEXAPRO) 20 mg tablet Take 1 tablet (20 mg total) by mouth daily. 30 tablet 0 07/11/2023 Active insulin detemir U-100 (Levemir FlexPen) 100 unit/mL (3 mL) injection Inject 42 Units under the skin at bedtime. 12.6 mL 0 07/11/2023 Active insulin lispro (HumaLOG U-100 Insulin) 100 unit/mL injection Inject 42 Units under the skin 3 (three) times a day with meals. Sliding scale 150-199-3U, 200-249-6U 250-299-9U, 300-399 12U, 399+ 18 U and call MD 40 mL 0 07/11/2023 Active levothyroxine (SYNTHROID, LEVOTHROID) 88 mcg tablet Take 1 tablet (88 mcg total) by mouth daily. 30 tablet 0 07/11/2023 Active mycophenolate (CELLCEPT) 250 mg capsule Take 3 capsules (750 mg total) by mouth every 12 (twelve) hours. 180 capsule 0 07/11/2023 Active rosuvastatin (CRESTOR) 10 mg tablet Take 1 tablet (10 mg total) by mouth at bedtime. 30 tablet 0 07/11/2023 Active tamsulosin (FLOMAX) 0.4 mg 24 hr capsule Take 1 capsule (0.4 mg total) by mouth 2 (two) times a day. 60 capsule 11 07/11/2023 4 Active pregabalin (LYRICA) 150 mg capsule Take 1 capsule (150 mg total) by mouth 2 (two) times a day for 10 doses. 10 capsule 0 07/11/2023 Active melatonin 3 mg tabletIndication s:Insomnia Take 1 tablet (3 mg total) by mouth at bedtime. 30 tablet 0 07/11/2023 3 pantoprazole (PROTONIX) 40 mg EC tablet Take 1 tablet (40 mg total) by mouth every morning before breakfast. 30 tablet 0 07/11/2023 3 potassium chloride (K-TAB) 20 mEq CR tablet Take 1 tablet (20 mEq total) by mouth 2 (two) times a day. 60 tablet 0 07/11/2023 3 cefdinir (OMNICEF) 300 mg capsule Take 1 capsule (300 mg total) by mouth every 12 (twelve) hours for 5 days. 10 capsule 0 08/02/2023 3 Discontinued (Reorder) cefdinir (OMNICEF) 300 mg capsule Take 1 capsule (300 mg total) by mouth every 12 (twelve) hours for 5 days. 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 Last Assessment & Plan: He will need diabetic follow up with his PCP after discharge. Weakness General 07/04/2023 Overview: This is multifactorial and related to recent acute infection, deconditioning, recent hospitalization, and immunodeficiency. Last Assessment & Plan: His strength has improved with therapy. He will need in home PT. Home Health Certification/Face to Face Attestation: I certify that this patient is confined to his home and needs physical therapy A plan of care has been established and will be reviewed periodically by a physician or allowed practitioner. Services will be furnished while the patient is under the care of a physician or allowed practitioner. The patient had a [id number] encounter with a physician or an allowed non-physician practitioner and the encounter was related to the primary reason for home health. Date of Face to Face Encounter: 07/11/23 Based on my finding, review of the medical records, and/or collaboration with the other providers, the following services are medically necessary home health services: Physical Therapy and Wound care This patient is confined to his home because: Patient requires assistance of another individual and it is burdensome ot leave the home. to leave the home. Provider following for home care services: Dr. Momo Nath, EDUARDO, C.N.P. 07/11/23 Cystitis Recurrent 07/04/2023 Overview: Multiple recent urine infections with some leading to hospitalization. Urology evaluation 10/18/2022 with cystoscopy suggested urethral stricture as possible contributing factor. Last Assessment & Plan: He has completed a course of IV ceftriaxone and is awaiting clearance from Infectious Disease to pull PICC line. 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 Last Assessment & Plan: He saw Cardiology 06/23/2023 at which time it was suggested that he may be on subtherapeutic dose of apixaban. It is unclear if he has had bleeding complications. Will defer to primary in the outpatient setting. Hypothyroidism On Replacement 07/04/2023 Overview: Managed on levothyroxine 88 mcg daily Last Assessment & Plan: Lab Results Component Value Date TSH 4.61 01/14/2023 Atrial Fibrillation Permanent 07/04/2023 Overview: Rate control recently changed to nifedipine from carvedilol due to difficult symptomatic bradycardia. He is on apixaban for anticoagulation. Dose may be subtherapeutic. 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 Recommendations at that time included: Adequate fluid intake Retract foreskin with each urination, clean and dry, and return foreskin to [place] position. Returned to urology clinic in 6 months for uroflow and residual Returned to urology clinic sooner if recurrent infections Last Assessment & Plan: Good hygiene and follow up with PCP and urology Diabetes Mellitus Type 2 Wit h Diabetic Neuropathy Hyperglycemic 07/04/2023 Overview: Recent A1C Status: Final result Component Ref Range & Units 2 wk ago (06/23/23) 1 yr ago (06/15/22) 1 yr ago (06/02/22) 1 yr ago (01/11/22) 2 yr ago (09/19/20) 4 yr ago (03/09/19) 4 yr ago (09/04/18) EXT Hemoglobin A1c, Point of Care, B <=6.4 % 9.1 High He is on Levemir 42 units at bedtime and Humalog sliding scale Symptoms addressed with pregabalin. Last Assessment & Plan: Levemir up to 42 units with Humalog sliding scale Gastroesophageal Reflux Disease Without Esophagi tis 07/04/2023 Overview: Managed on protonix Last Assessment & Plan: Asymptomatic with medication Anemia Of Chronic Renal Disease 07/04/2023 Last Assessment & Plan: Most recent hemoglobin 11.6. Bradycardia 07/04/2023 Overview: Hospitalized for symptomatic bradycardia 06/22 to 06/24/2023. Carvedilol transitioned to nifedipine. Pressure Injury (Ulcer) Of Right Ankle Stage 2 1 09/03/2022 Overview: Ulceration right lateral lower leg felt secondary to pressure from high top shoe. Last Assessment & Plan: Wound has slough with granulating buds. There was MRSA in the wound. He has completed a course of doxycycline today. Silverstat will be applied to the wound daily after cleaning with saline and drying with a gauze.a gauze will be applied and secured with a rolled gauze. Insomnia 07/04/2023 Overview: Latent sleep initiation. Last Assessment & Plan: He is sleeping well with the melatonin Diabetes Mellitus Type 2 Ulcer Foot 07/01/2023 Overview: Right lateral leg from shoes rubbing-chronic wound Last Assessment & Plan: He was treated for MRSA in the wound. Daily dressing changes. Anxiety Generalized Disorder 08/12/2022 Overview: On lexapro Last Assessment & Plan: Nursing to monitor anxiety Apnea Sleep Obstructive 08/12/2022 Overview: Refuses CPAP Last Assessment & Plan: Nursing will monitor O2 Sats and apply oxygen to keep sats greater than 90% Fistula Arteriovenous Acquired 08/12/2022 Overview: Right forearm No longer used for dialysis. Last Assessment & Plan: Lump under skin. Major Depressive Disorder Single Episode Unspeci fied 08/12/2022 Overview: Stable on Lexapro Last Assessment & Plan: Continue lexapro Malignant Neoplasm Of Skin Basal Cell Carcinoma 08/12/2022 Sleep Disorder 08/12/2022 Overview: CHANELL refuses CPAP Last Assessment & Plan: He sleeps in a recliner with his head more upright Chronic Diastolic (Congestive) Heart Failure Overview: He is normotensive and hemodynamically stable on his current medications Last Assessment & Plan: Renal function has been stable on current dose of torsemide. Pancreas Disease 06/15/2022 Overview: 08/12/2022 CT Abdomen Pelvis without IV Contrast IMPRESSION: 1. Right lower quadrant renal transplant with collecting system gas. Peritransplant and urinary bladder bladder mural edema, correlate with urinalysis for cystitis and emphysematous pyelitis and/or pyelonephritis. 2. Mild ill-defined L2-L3 ventral paraspinous induration, no overt endplate destruction. Suspect infectious/inflammatory, correlate with biomarkers and MRI to exclude early discitis given new back pain. 3. Suspect lung base fibrosis with 5mm lung base nodules, see follow-up recommendations below. 4. Background pancreatic fatty atrophy with multilobular low-density pancreatic lesions, pancreatic protocol MRI recommended. 5. Cholelithiasis. Last Assessment & Plan: He needs follow up with his PCP after discharge. Pressure Injury (Ulcer) Of Right Buttock Stage 2 01/11/2022 Overview: Chronic right buttock near gluteal cleft ulcers. There are small superficial open areas. Wound beds are clean and pink. No drainage noted. Last Assessment & Plan: SensaCare 2 cream is applied several times a day Morbid Obesity 06/16/2016 Overview: BMI Readings from Last 1 Encounters: 07/04/23 39.93 kg/m?? Last Assessment & Plan: Maintain good nutrition for healing and health Depression Major Recurrent Moderate 01/28/2015 Overview: On lexapro Last Assessment & Plan: On escitalopram. Most recent PHQ-9 0. Immunodeficiency Due To Conditions Classified [place] 02/05/2014 Overview: Immunosuppression related to right renal transplant 2013 Mycophenolate and tacrolimus. Last Assessment & Plan: He will need to keep any follow up appointments with his transplant team Transplant Renal 02/02/2014 Overview: Renal transplant 02/04/2014 to address end-stage renal disease on dialysis Follows with [facility]. Last Assessment & Plan: He follows with renal transplant Service at [facility]. On tacrolimus and mycophenolate. Hypertension Secondary To Other Renal Disorders 12/02/2011 Overview: Blood pressures in range on nifedipine. Potassium and torsenide Last Assessment & Plan: Continue current antihypertensive medications Polyneuropathy 12/02/2011 Overview: Diabetic polyneuropathy on pregabalin to control symptoms. Last Assessment & Plan: Continue lyrica Deficiency Vitamin D 11/20/2011 Hyperlipidemia 11/14/2010 Overview: On rosuvastatin in the setting of diabetes. Last Assessment & Plan: Continue rosuvastatin Nodule Thyroid Nontoxic 03/02/2010 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 Rate 15-29 01/27/2010 Overview: In the setting of renal transplant. Most recent GFR 28. Follows with renal transplant at [facility]. 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 12/17/2005 [facility] Last Assessment & Plan: He will follow up with [facility] for new shoes Resolved Problems Problem Noted Date Diagnosed Date Resolved Date Cataract 09/22/2022 07/01/2023 Edema 08/12/2022 07/01/2023 Hypersomnia 08/12/2022 07/01/2023 Depression 08/12/2022 07/01/2023 Non-Pressure Chronic Ulcer O f Buttock With Unspecified Severity 08/12/2022 07/01/2023 Non-Pressure Chronic Ulcer O f Unspecified Part Of Left Lower Leg With Unspecified Severity 08/12/2022 07/01/2023 Other Dyspnea 08/12/2022 07/01/2023 Charcots Joint Left Ankle And Foot 07/16/2022 07/01/2023 Malignant Neoplasm Of Pancreatic Duct 07/16/2022 07/01/2023 Diabetes Mellitus Type 1 Without Complication 06/15/2007/01/2023 Pneumonia Due To COVID-19 06/15/2022 Failure Renal Acute (Acute Kidney Injury) 01/11/2022 07/01/2023 Urinary Tract Infection Site Not Specified 01/11/2022 07/11/2023 Overview: He is currently receiving Rocephin 1 GM per PICC in Left arm Last Assessment & Plan: He is tolerating the medication well. Malignant Neoplasm Of Skin 03/24/2021 1 08/31/2022 Abscess Foot Right 09/18/2020 Diabetes Mellitus Type 2 Wit h Other Skin Complication 09/18/2020 07/01/2023 Infection Bacterial 09/17/2020 07/11/20 Overview: UTI on IV rocephin Last Assessment & Plan: He will complete the course of rocephin. cefTRIAXone (ROCEPHIN) 1 gram injection Indications: Urinary tract infection without hematuria, site unspecified Inject 1,000 mg intravenous every 24 hours for 4 days. 4 g 0 06/29/2023 07/03/2023 Syncope And Collapse 03/08/201907/11/ 023 Overview: Fall at home related to septic UTI Last Assessment & Plan: He walks with a walker. He has left BKA left side with prosthesis and built up shoes bilaterally Benign Neoplasm Colon 01/01/20142022 Diabetes Mellitus Type 2 12/02/2011 Diabetes Mellitus Type 2 Wit h Unspecified Diabetic Retinopathy Without Macular Edema Hyperglycemic 12/02/2011 07/11/2023 Overview: Insulin dependent Lab Results Component Value Date HGBA1C 9.1 (H) 06/23/2023 Last Assessment & Plan: He is currently on insulin glargine and sliding scale insulin at mealtime. He has had recent adjustments in attempt to improve control. Malaise 12/02/2011 07/01/2023 Overview: Problem list name updated by automated process. 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 08/17/2023 Orders Only Department of Urology in [address] [phone] Ebenezer Sanchez M.D. Other Urethral 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 (Primary Dx) 08/16/2023 Clinical Communication Department of Urology in [address] [phone] Ebenezer Sanchez M.D. 08/12/2023 Clinical Communication Department of Urology in [address] [phone] Ebenezer Sanchez M.D. 08/08/2023 2:35 PM [facility] Ancillary Procedure Department of Urology 08/08/2023 1:30 PM [facility] Office Visit Department of Urology in [address] [phone] Ebenezer Sanchez M.D. Cystitis Recurrent; Other Urethral 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 08/08/2023 Clinical Communication Department of [facility] in [place], [place] [address] [place] [address] Arlette Nath APRN, C.N.P. 08/03/2023 Orders Only Department of General Surgery in [address] [phone] Jessica Bradley, C.N.AGeneva 08/02/2023 Orders Only Department of Urology in [address] [phone] Ebenezer Sanchez M.D. 08/01/2023 1:30 PM [facility] - 08/01/2023 11:59 PM [facility] Hospital Encounter Department of Laboratory Medicine in [place], [place] [address] [place] [phone] Ebenezer Sanchez M.D. Urinary Tract Infection Site Not Specified; Retention Urinary Discharge Disposition: Home or Self Care 07/11/2023 10:00 AM [facility] External Outreach [facility] in [address] [phone] Victorina Braun M.D. Dunton, Peggy V., APRN, C.N.P. 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 Hyperglycemic ([facility]); Diabetes Mellitus Type 2 With Diabetic Neuropathy Hyperglycemic ([facility]); Insomnia; Transplant Renal ([facility]); Sleep Disorder; Pressure Injury (Ulcer) Of Right Buttock Stage 2 ([facility]); Pressure Injury (Ulcer) Of Right Ankle Stage 2 ([facility]); Polyneuropathy; Pancreas Disease; Other Urethral 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; Morbid Obesity ([facility]); Major Depressive Disorder Single Episode Unspecified; 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 Use Of Insulin Active ([facility]); Immunodeficiency Due To Conditions Classified Elsewhere ([facility]); Hypothyroidism On Replacement; Hypertension Secondary To Other Renal Disorders; Hyperlipidemia; Gastroesophageal Reflux Disease Without Esophagitis; 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[facility]); Diabetes Mellitus Type 2 Ulcer Foot ([facility]); Depression Major Recurrent Moderate ([facility]); 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 07/08/2023 Clinical Communication Senior Services in [address] [phone] Arlette Nath APRN, C.N.P. 07/04/2023 3:00 PM [facility] in [address] [phone] Victorina Braun M.D. Transplant Renal ([facility]) (Primary Dx); Weakness General; Pressure Injury (Ulcer) Of Right Buttock Stage 2 ([facility]); Pancreas Disease; Morbid Obesity ([facility]); Immunodeficiency Due To Conditions Classified Elsewhere ([facility]); Hypertension Secondary To Other Renal Disorders; 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HCC); Alf Use Of Insulin Active (HCC); 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 Hyperglycemic (HCC); Depression Major Recurrent Moderate (HCC); Chronic Diastolic (Congestive) Heart Failure (HCC); Apnea Sleep Obstructive; Anemia Of Chronic Renal Disease; Cystitis Recurrent; Gastroesophageal Reflux Disease Without Esophagitis; Diabetes Mellitus Type 2 With Diabetic Neuropathy Hyperglycemic (HCC); Other Urethral 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; Hyperlipidemia; Atrial Fibrillation Permanent (HCC); Alf (Current) Anticoagulant Treatment; Hypothyroidism On Replacement; 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 (HCC); 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 Rate 15-29 (HCC); Polyneuropathy; Bradycardia; Pressure Injury (Ulcer) Of Right Ankle Stage 2 (HCC); Insomnia 06/30/2023 3:00 PM [facility] in [place] [address] [phone] Arlette Nath V., EDUARDO, C.N.P. Urinary Tract Infection Site Not Specified (Primary Dx); Malignant Neoplasm Of Pancreatic Duct (HCC); Immunodeficiency (HCC); Pressure Induced Deep Tissue Damage Of Left Buttock; Chronic Diastolic (Congestive) Heart Failure (HCC); Depression Major Recurrent Moderate (HCC); Diabetes Mellitus Type 2 With Other Skin Complication (HCC); 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HCC); Morbid Obesity (HCC); Hyperparathyroidism Renal Secondary (HCC); Unspecified Abnormalities Of Gait And Mobility; Pressure Injury (Ulcer) Of Right Buttock Stage 2 (HCC); Pressure Injury (Ulcer) Of Left Buttock Stage 2 (HCC); Pancreas Disease; Sleep Disorder; Transplant Renal (HCC); Syncope And Collapse; Major Depressive Disorder Single Episode Unspecified; Infection Bacterial; Hypertension Secondary To Other Renal Disorders; 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 (HCC); Complete Traumatic Amputation At Level Between Knee And Ankle Left Lower Leg Initial (HCC); Apnea Sleep Obstructive; Anxiety Generalized Disorder; 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 ([facility]); Diabetes Mellitus Type 2 Ulcer Foot ([facility]) 06/30/2023 Orders Only [facility] in [place] [address] [phone] Arlette Nath V., EDUARDO, C.N.P. from Last 3 Months Immunizations Name Administration Dates Next Due HepB, Unspecified 02/08/2012 Influenza (IM) Preservative Free 05/12/2011,04/23 Influenza TIV (IM) 06/26/2018, 7,05/30/2017,2012,06/05/2013,05/17/2012,05/12/2011,0 05/15/2010,05/20/2009 Influenza high dose QV(65 ye ars or older) (PF) 07/01/2022,09/22/2021,07/30/2021 Influenza, Seasonal, Injectable 07/12/20 17,06/05/2013,05/17/2012,2008 Influenza, Unspecified 05/29/2020,05/20/2009 PCV13 03/17/2016 PPSV23 05/05/2011 SARS-COV-2 (COVID-19) - [facility] ([facility]) 09/22/2021 Td (Adult), adsorbed 01/12/2019 Td Preservative Free (TENIVA C, DECAVAC) 01/12/2019,12/23/2018 Td, (Adult) Unspecified 12/23/2018 Tdap 12/23/2018 Tuberculin Skin Test, Unspecified 07/30/2022, influenza high dose (65 year s or older) (PF) 10/09/2019,08/09/2016 influenza vaccine quad (FLUZONE/FLUARIX) (6 months and older)(PF) 05/29/2020,10/09/2019,06/26/2018,2016,05/30/2017,08/09/2016,08/12/2015,1 ,06/05/2013,05/17/2012, 011,05/15/2010,05/20/2009 Social History Tobacco Use Types Packs/Day Years Used Date Smoking Tobacco: Former Cigars Smokeless Tobacco: Never Tobacco Cessation:Counseling Given: Not Answered Nutrition Answer Date Recorded Nutrition: EVOO Fat Source Unknown 03/05 Nutrition: Servings of Fruits/Vegetables per Day Not on file 03/05/2022 Dental Answer Date Recorded Dental: Regular Dentist Unknown 03/05/20 22 Sex and Gender Information Value Date Recorded Sex Assigned at Not on file Gender Identity Not on file Sexual Orientation Not on file Last Filed Vital Signs Vital Sign Reading Time Taken Comments Blood Pressure 103/66 07/11/2023 8:54 AM [facility] Pulse 79 07/11/2023 8:54 AM [facility] Temperature 36.5 ??C (97.7 ??F) 07/11/2023 8:54 AM CS T Respiratory Rate 16 07/11/2023 8:54 AM [facility] Oxygen Saturation 97% 07/11/2023 8:54 AM [facility] Inhaled Oxygen Concentration - - Weight 134 kg (294 lb 6.4 oz) 07/11/2023 8:54 AM [facility] Height 182.9 cm (6') 07/04/2023 6:11 PM [facility] Body Mass Index 39.93 07/04/2023 6:11 PM [facility] Plan of Treatment Upcoming Encounters Date Type Department Care Team (Late st Contact Info) Description 09/01/2023 11:30 AM [facility] Office Visit Department of Urology in [place], [place] [address] [phone] Antonia Krause, GLASS CUTTER HAND, C.N.P. [address] [phone] Health Maintenance Due Date Last Done Comments CT Colonography 1950 Cologuard 1950 Colonoscopy 1950 Colorectal Cancer Screening 1950 Depression Monitoring (PHQ-9) 1950 Diabetic Office Visit with Foot Exam 1950 Dilated Eye Exam 1950 FIT 1950 Hemoglobin A1C 1950 Hepatitis C Screening 1950 Urine Albumin 1950 Zoster Vaccines (1 of 2) 1969 Hepatitis B Vaccines (2 of 3 - Risk 3-dose series) 03/07/2012 02/08/2012 Pneumococcal vaccine (65+ years) (3 of 3 - PPSV23 or PCV20) 05/12/2016 03/17/2016, 05/05/2011 COVID-19 Vaccine ( - season) 2023 09/22/2021, 09/22/2021, 11/18/2020, Additional history exists Fall Risk Screen (Annual) 08/22/2023 Lipid (Cholesterol) Screening 06/23/2024 06/23/2023, 09/19/2020, 05/15/2018, Additional history exists Creatinine Level (Kidney Function Test) 07/04/2024 07/04/2023, 06/29/2023, 06/28/2023, Additional history exists Office Visit for Blood Pressure Check / Re-check 07/11/2024 07/11/2023 DTaP,Tdap,and Td Vaccines (5 - Td or Tdap) 01/12/2029 01/12/2019, 01/12/2019, 12/23/2018, Additional history exists Abdominal Aortic Aneurysm (AAA) Screen Completed 08/12/2022, 09/17/2020 Influenza Vaccine Completed 05/26/2023, , 09/22/2021, Additional history exists HPV Vaccines Aged Out No longer eligi ble based on patient's age to complete this topic Procedures Procedure Name Priority Date/Time Associated Diagnosis Comments UROLOGY IMAGE EXAM Routine 08/08/2023 1: 52 PM [facility] BACTERIAL CULTURE, AEROBIC + SUSC, URINE Routine 08/01/2023 1:20 PM [facility] Urinary Tract Infection Site Not Specified Retention Urinary from Last 3 Months Results * CYSTOSCOPY-Urology Image Exam (08/08/2023 1:52 PM [facility]) 08/08/2023 2:33 PM [facility] Narrative IIMS - 08/08/2023 1:52 PM [facility] This order has been created and auto-finalized to support the import of images acquired without order. The clinical documentation to support these images can be found on the encounter that produced images. Provider Not In System IMG NON RAD IMAGI NG PROCEDURES IIMS NA * (ABNORMAL) Bacterial Culture, Aerobic + Susceptibility, Urine (08/01/2023 1:20 PM [facility]) Urine Culture SERRATIA MARCESCENS >100,000 cfu/mL (A) 08/03/2023 7:03 AM [facility] Urine (Urine, Midstream) 08/01/2023 1:20 PM [facility] 08/01/2023 6:48 PM [facility] Comment:Specimen Source Site : Urine Narrative Organism [...] M.D. LAB MICROBIOLOGY - G ENERAL ORDERABLES [facility] [address] [id number], [facility] in [place] [address] [place] [address] from Last 3 Months Advance Directives For more information, please contact: [phone] Latest Code Status on File Code Status Date Activated Date Inactivated Comments Full Code 07/01/2023 1:09 PM Question Answer Comments Full Code: Discussed Care Teams Mobile Sales Assistant Relationship Specialty Start Date End Date Elsewhere, Pcp PCP - General Internal Medicine 08/11/23
--- OUTSIDE RECORDS SUMMARY | 2023-08-31 13:06 | XMS_ITS | Encounter Summary ---
Author Name Unknown Organization [facility] Address [address] [place] [address] Care Team Providers Care Wind Site Manager Name Role Phone Elsewhere, Pcp Primary Care Provider Unavailabl e Encounter Details Date Type Department Care Team (Late Contact Info) Description 08/16/2023 Clinical Communication Department of Urology in [place], [place] [address] [phone] Ebenezer Sanchez M.D. [address] [phone] Social History Tobacco Use Types Packs/Day [...] Encounters Date Type Department Care Team (Late Contact Info) Description 09/01/2023 11:30 AM NOTCH GRINDER Office Visit Department of Urology in [place], [place] [address] [phone] Antonia Krause APRN, C.N.P. [address] [address] documented as of this encounter Visit Diagnoses Not on filedocumented in this encounter Care Teams Wind Site Manager Relationship Specialty Start Date End Date Elsewhere, Pcp PCP - General Internal Medicine 08/11/23 documented as of this encounter
--- OUTSIDE RECORDS SUMMARY | 2023-08-31 13:06 | XMS_ITS | Encounter Summary ---
Author Name Unknown Organization [facility] Address [address] [place] [address] Care Team Providers Care Electronic Equipment Repairmen Name Role Phone Elsewhere, Pcp Primary Care Provider Unavailabl e Reason for Referral * Outpatient (Routine) - Authorized Specialty Diagnoses / Procedures Referred By Armaan howell Referred To Contact Urology Ebenezer Sanchez M.D. 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 [address] [place] [phone] [facility] Region Referral ID Status Reason Start Date Expiration Date V isits Requested Visits Authorized [id number] Authorized 08/17/2023 08/16/2024 1 1 ON DIOXIDE OPERATOR Encounter Details Date Type Department Care Team (Late st Contact Info) Description 08/17/2023 Orders Only Department of Urology in [place], [place] [address] [address] Ebenezer Sanchez M.D. 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 [address] [phone] Scheduled Orders Name Type Priority Associated Diagnoses Orde r Schedule Bacterial Culture, Aerobic + Susceptibility, Urine Microbiology Routine Other Urethral 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 Expected: 08/24/2023 (Approximate), Expires: 11/15/2024 Scheduled Referrals Name Type Priority Associated Diagnoses Orde r Schedule Primary Care - ARTI consult (clinic) Outpatient Referral Routine Other Urethral 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 Expected: 08/17/2023 (Approximate), Expires: 11/15/2024 Urology office visit (clinic) Outpatient Referral Routine Expected: 08/24/2023 (Approximate), Expires: 11/15/2024 documented as of this encounter Visit Diagnoses Diagnosis Other Urethral 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- Primary documented in this encounter Care Teams Electronic Equipment Repairmen Relationship Specialty Start Date End Date Elsewhere, Pcp PCP - General Internal Medicine 08/11/23 documented as of this encounter
--- OUTSIDE RECORDS SUMMARY | 2023-08-31 13:06 | XMS_ITS | Encounter Summary ---
Author Name Unknown Organization [facility] Address [address] [place] [address] Care Team Providers Care Information Coder Name Role Phone Elsewhere, Pcp Primary Care Provider Unavailabl e Encounter Details Date Type Department Care Team (Late st Contact Info) Description 08/08/2023 Clinical Communication Department of Community Internal Medicine in [place], [place] [address] [place] [phone] Arlette Nath V., EDUARDO, C.N.P. [address] [place] [address] Social History Tobacco Use Types Packs/Day Years [...] documented as of this encounter Miscellaneous Notes * Telephone Encounter - Lucille Cano RMelissa - 08/17/2023 10:19 AM CST Surgery orders given to equipment scheduler who will contact patient. Fax request for pre op from Dr. Leidy Khan has been sent, 08/17/23. ING AND VENTILATION ENGINEER * Telephone Encounter - Lucille Cano R.N. - 08/17/2023 9:16 AM CST Patient now lives back home, not at [facility]. Per Tete, Dr. Forbes did a preop as patient nowwishes to be knocked out for the procedure; wants to go to the OR. Will forward to Dr. Sanchez to review and advise. Will keep August 25 appointment in case uro provider needs to discuss greater detail of procedure for surgery. ING AND VENTILATION ENGINEER * Telephone Encounter - Lucille Cano R.N. - 08/17/2023 8:50 AM CST OW Uro RN has scheduled patient for urology appointment August [address] Sanchez. Will forwardto SNF and Provider Dosumu to arrange needed Eliquis instructions, urine testing and Ativan. ING AND VENTILATION ENGINEER documented in this encounter Plan of Treatment Upcoming Encounters Date Type Department Care Team (Late st Contact Info) Description 09/01/2023 11:30 AM HEATING AND VENTILATION ENGINEER Office Visit Department of Urology in [place], [place] [address] [place] [phone] Antonia Krause APRN, C.N.P. [address] [place] [phone] documented as of this encounter Visit Diagnoses Not on filedocumented in this encounter Care Teams Information Coder Relationship Specialty Start Date End Date Elsewhere, Pcp PCP - General Internal Medicine 08/11/23 documented as of this encounter
--- OUTSIDE RECORDS SUMMARY | 2023-08-31 13:06 | XMS_ITS | Referral Summary ---
Author Name Unknown Organization [facility] Address [address] [place] [address] Care Team Providers Care Structural Manager Name Role Phone Elsewhere, Pcp Primary Care Provider Unavailabl e Source Comments Patient records contain information from all sites at [facility]. For routine questions regarding patient records, call [phone] during business hours, M-F 8:00 AM - 5:00 PM Central Time. Record requests for emergency care only can be directed to [phone] at any time.[facility] Encounters Date Type Department Care Team Description 08/17/2023 Clinical Communication Department of Urology in [address] [address] Ebenezer Sanchez M.D. 08/17/2023 Orders Only Department of Urology in [place], [place] [address] [place] [phone] Ebenezer Sanchez M.D. 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 08/12/2023 Clinical Communication Department of Urology in [address] [phone] Ebenezer Sanchez M.D. 08/08/2023 Clinical Communication Department of Community Internal Medicine in [address] [phone] Arlette Nath APRN, C.N.P. 08/08/2023 2:35 PM 911 DISPATCHER Ancillary Procedure Department of Urology 08/08/2023 1:30 PM 911 DISPATCHER Office Visit Department of Urology in [place], [place] [address] [phone] Ebenezer Sanchez M.D. 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 08/01/2023 1:30 PM 911 DISPATCHER - 08/01/2023 11:59 PM 911 DISPATCHER Hospital Encounter Department of Laboratory Medicine in [place], [place] [address] [place] [address] Ebenezer Sanchez M.D. Urinary Tract Infection Site Not Specified; Retention Urinary Discharge Disposition: Home or Self Care 07/11/2023 Orders Only Senior Services in [place] [address] [address] Arlette Nath APRN, C.N.P. 07/11/2023 10:00 AM 911 DISPATCHER External Outreach [facility] in [place] [address] [address] Victorina Braun M.D. Dunton, Peggy V., APRN, C.N.P. 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; Morbid Obesity ([facility]); Major Depressive Disorder Single Episode Unspecified; Consultant Education Use Of Insulin Active (HCC); Immunodeficiency Due To Conditions Classified Elsewhere ([facility]); Hypothyroidism On Replacement; Hypertension Secondary To Other Renal Disorders; Hyperlipidemia; Gastroesophageal Reflux Disease Without Esophagitis; 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[facility]); Diabetes Mellitus Type 2 Ulcer Foot ([facility]); Depression Major Recurrent Moderate ([facility]); 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 ([facility]) 07/08/2023 Clinical Communication [facility] in [place] [address] [place] [phone] Arlette Nath APRN, C.N.P. 07/04/2023 3:00 PM 911 DISPATCHER External Outreach [facility] in [place] [address] [place] [phone] Victorina Braun M.D. 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 Hyperglycemic ([facility]); Depression Major Recurrent Moderate (HCC); Chronic Diastolic (Congestive) Heart Failure ([facility]); Apnea Sleep Obstructive; Anemia Of Chronic Renal Disease; Cystitis Recurrent; Gastroesophageal Reflux Disease Without Esophagitis; Diabetes Mellitus Type 2 With Diabetic Neuropathy Hyperglycemic ([facility]); Other Urethral 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; Hyperlipidemia; Atrial Fibrillation Permanent (HCC); Consultant Education (Current) Anticoagulant Treatment; Hypothyroidism On Replacement; 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 Urinary Tract [...] Leg Below Knee Status Post Left (HCC); Diabetes Mellitus Type 2 Ulcer Foot ([facility]) 06/30/2023 Orders Only Senior Services in [facility] [address] [address] Arlette Nath V., EDUARDO, C.N.P. from Last 3 Months Allergies Active Allergy Reactions Criticality Noted Date [...] Active Problems Problem Noted Date Diagnosed Date Mcc Use Of Insulin Active 07/04/2023 Overview: He [...] or allowed practitioner. The patient had a [id number] encounter with a physician or an allowed [...] for home care services: Dr. Momo Nath, EDUAROD, C.N.P. 07/11/23 Cystitis Recurrent 07/04/2023 Overview: Multiple recent urine infections with some leading to hospitalization. Urology evaluation 10/18/2022 with cystoscopy suggested urethral stricture as possible contributing factor. Last Assessment & Plan: He has completed a course of IV ceftriaxone and is awaiting clearance from Infectious Disease to pull PICC line. Mcc (Current) Anticoagulant Treatment 06/22 Overview: On apixaban [...] clean and dry, and return foreskin to iqugmiut position. Returned to urology clinic in 6 [...] end-stage renal disease on dialysis Follows with [facility]. Last Assessment & Plan: He follows with renal transplant Service at the [facility]. On tacrolimus and mycophenolate. Hypertension Secondary To [...] GFR 28. Follows with renal transplant at [facility]. 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 12/17/2005 [facility] limb lab Last Assessment & Plan: He [...] g 0 06/29/2023 07/03/2023 Syncope And Collapse 03/08/2019 023 Overview: Fall at home related to [...] And Mobility 12/14/2005 07/01/2023 Hypertension 07/14/2005 07/01/2023 Immunizations Name Administration Dates Next Due HepB, Unspecified 02/08/2012 Influenza (IM) Preservative Free 05/12/2011,04/23 Influenza TIV (IM) 06/26/2018, 7,05/30/2017,2012,06/05/2013,05/17/2012,05/12/2011,0 05/15/2010,05/20/2009 Influenza high dose QV(65 ye ars or older) (PF) 07/01/2022,09/22/2021,07/30/2021 Influenza, Seasonal, Injectable 07/12/20 17,06/05/2013,05/17/2012,2008 Influenza, Unspecified 05/29/2020,05/20/2009 PCV13 03/17/2016 PPSV23 05/05/2011 SARS-COV-2 (COVID-19) - [facility] ([facility] 09/22/2021 Td (Adult), adsorbed 01/12/2019 Td [...] Comments Blood Pressure 103/66 07/11/2023 8:54 AM 911 DISPATCHER Pulse 79 07/11/2023 8:54 AM 911 DISPATCHER Temperature 36.5 ??C (97.7 ??F) 07/11/2023 8:54 AM CS T Respiratory Rate 16 07/11/2023 8:54 AM 911 DISPATCHER Oxygen Saturation 97% 07/11/2023 8:54 AM 911 DISPATCHER Inhaled Oxygen Concentration - - Weight 134 kg (294 lb 6.4 oz) 07/11/2023 8:54 AM 911 DISPATCHER Height 182.9 cm (6') 07/04/2023 6:11 PM 911 DISPATCHER Body Mass Index 39.93 07/04/2023 6:11 PM 911 DISPATCHER Plan of Treatment Upcoming Encounters Date Type Department Care Team (Late st Contact Info) Description 09/01/2023 11:30 AM 911 DISPATCHER Office Visit Department of Urology in [place], [place] [address] [phone] Antonia Krause APRN, C.N.P. [address] [phone] Procedures Procedure Name Priority Date/Time Associated Diagnosis Comments UROLOGY IMAGE EXAM Routine 08/08/2023 1: 52 PM 911 DISPATCHER BACTERIAL CULTURE, AEROBIC + SUSC, URINE Routine 08/01/2023 1:20 PM 911 DISPATCHER Urinary Tract Infection Site Not Specified Retention Urinary from Last 3 Months Results * CYSTOSCOPY-Urology Image Exam (08/08/2023 1:52 PM 911 DISPATCHER) 08/08/2023 2:33 PM 911 DISPATCHER Narrative IIMS - 08/08/2023 1:52 PM 911 DISPATCHER This order has been created and auto-finalized to support the import of images acquired without order. The clinical documentation to support these images can be found on the encounter that produced images. Provider Not In System IMG NON RAD IMAGI NG PROCEDURES IIMS NA * (ABNORMAL) Bacterial Culture, Aerobic + Susceptibility, Urine (08/01/2023 1:20 PM 911 DISPATCHER) Urine Culture SERRATIA MARCESCENS >100,000 cfu/mL (A) 08/03/2023 7:03 AM 911 DISPATCHER MKTO Urine (Urine, Midstream) 08/01/2023 1:20 PM 911 DISPATCHER 08/01/2023 6:48 PM 911 DISPATCHER Comment:Specimen Source Site : Urine Narrative Organism [...] Sulfamethoxazole SUSCEPTIBILITY, SHAILESH (MCG/ML) <=20 mcg/mL: Susceptible Eebnezer Sanchez M.D. LAB MICROBIOLOGY - G ENERAL ORDERABLES [facility] [address] [place] [address], [facility] MKTO [facility] in [place] [address] [place] [address] from Last 3 Months Advance Directives For more information, please contact: [phone] Latest Code Status on File Code Status Date Activated Date Inactivated Comments Full Code 07/01/2023 1:09 PM Question Answer Comments Full Code: Discussed Care Teams Structural Manager Relationship Specialty Start Date End Date Elsewhere, Pcp PCP - General Internal Medicine 08/11/23
--- OUTSIDE RECORDS SUMMARY | 2023-08-31 13:06 | XMS_ITS | Encounter Summary ---
Author Name Unknown Organization [facility] Address [address] [place] [address] Care Team Providers Care Faculty Criminal Justice Name Role Phone Niyah Davalosanatoliy Kirby APRN, C.N.P., M.S.N. Primary C are Provider Encounter Details Date Type Department Care Team (Late Contact Info) Description 08/08/2023 2:35 PM MAINTENANCE PERSON Ancillary Procedure Department of Urology Social History Tobacco Use Types Packs/Day Years [...] (Late Contact Info) Description 09/01/2023 11:30 AM MAINTENANCE PERSON Office Visit Department of Urology in [place], [place] [address] [address] Antonia Krause APRN, C.N.P. [address] [place] [address] documented as of this encounter Procedures Procedure Name Priority Date/Time Associated Diagnosis Comments UROLOGY IMAGE EXAM Routine 08/08/2023 1: 52 PM MAINTENANCE PERSON documented in this encounter Results * CYSTOSCOPY-Urology Image Exam (08/08/2023 1:52 PM MAINTENANCE PERSON) 08/08/2023 2:33 PM MAINTENANCE PERSON Narrative IIMS - 08/08/2023 1:52 PM MAINTENANCE PERSON This order has been created and auto-finalized to support the import of images acquired without order. The clinical documentation to support these images can be found on the encounter that produced images. Provider Not In System IMG NON RAD IMAGI NG PROCEDURES IIMS NA documented in this encounter Visit Diagnoses Not on filedocumented in this encounter Care Teams Faculty Criminal Justice Relationship Specialty Start Date End Date Manoj Davalos APRN, C.N.P., M.S.N. [address] [place] [address] PCP - General Internal Medicine 06/30/23 08/10/23 documented as of this encounter
--- OUTSIDE RECORDS SUMMARY | 2023-08-31 13:06 | XMS_ITS ---
Author Name Unknown Organization [facility] Address [address] [place] [address] Care Team Providers Care Hot Tar Roofer Name Role Phone Unavailable Unavailable Unavailable Surgery Details Not on file Complications Check Surgery Details section. Procedure Estimated Blood Loss Check Surgery Details section. Procedure Findings Check Surgery Details section. Procedure Specimens Taken Check Surgery Details section.
--- OUTSIDE RECORDS SUMMARY | 2023-08-31 13:06 | XMS_ITS | Encounter Summary ---
Author Name Unknown Organization [facility] Address [address] [place] [address] Care Team Providers Care Adoption Social Worker Name Role Phone Elsewhere, Pcp Primary Care Provider Unavailabl e Encounter Details Date Type Department Care Team (Late Contact Info) Description 08/17/2023 Clinical Communication Department of Urology in [place], [place] [address] [phone] Ebenezer Sanchez M.D. [address] [phone] Social History Tobacco Use Types [...] (Late Contact Info) Description 09/01/2023 11:30 AM VISUAL DESIGN LEAD Office Visit Department of Urology in [place], [place] [address] [phone] Antonia Krause APRN, C.N.P. [address] [phone] documented as of this encounter Visit Diagnoses Not on filedocumented in this encounter Care Teams Adoption Social Worker Relationship Specialty Start Date End Date Elsewhere, Pcp PCP - General Internal Medicine 08/11/23 documented as of this encounter
--- OUTSIDE RECORDS SUMMARY | 2023-08-31 13:06 | XMS_ITS | Encounter Summary ---
Author Name Unknown Organization [facility] Address [address] [place] [address] Care Team Providers Care Manufacturing Applications Engineer Name Role Phone Dannie Davalosgumaro Kirby APRN, C.N.P., M.S.N. Primary C are Provider Encounter Details Date Type Department Care Team (Late st Contact Info) Description 08/02/2023 Orders Only Department of Urology in [place], [place] [address] [place] [phone] Ebenezer Sanchez M.D. [address], [place] [address] Social History Tobacco Use Types Packs/Day [...] st Contact Info) Description 09/01/2023 11:30 AM FARMER AND GRAZIER Office Visit Department of Urology in [place], [place] [address], [place] [address] Antonia Krause APRN, C.N.P. [address], [place] [address] documented as of this encounter Visit Diagnoses Not on filedocumented in this encounter Care Teams Manufacturing Applications Engineer Relationship Specialty Start Date End Date Manoj Davalos APRN, C.N.P., [place] [address] PCP - General Internal Medicine 06/30/23 08/10/23 documented as of this encounter
--- OUTSIDE RECORDS SUMMARY | 2023-08-31 13:06 | XMS_ITS | Encounter Summary ---
Author Name Unknown Organization [facility] Address [address] [place] [address] Care Team Providers Care Internal Carver Name Role Phone Elsewhere, Pcp Primary Care Provider Unavailabl e Encounter Details Date Type Department Care Team (Late Contact Info) Description 08/12/2023 Clinical Communication Department of Urology in [place], [place] [address] [phone] Ebenezer Sanchez M.D. [address] [phone] Social History Tobacco Use Types [...] (Late Contact Info) Description 09/01/2023 11:30 AM TANK TESTER Office Visit Department of Urology in [place], [place] [address] [phone] Antonia Krause APRN, C.N.P. [address] [phone] documented as of this encounter Visit Diagnoses Not on filedocumented in this encounter Care Teams Internal Carver Relationship Specialty Start Date End Date Elsewhere, Pcp PCP - General Internal Medicine 08/11/23 documented as of this encounter
--- OUTSIDE RECORDS SUMMARY | 2023-08-31 13:07 | XMS_ITS | Encounter Summary ---
Author Name Unknown Organization [facility] Address [address] [place] [address] Care Team Providers Care Splicer Machine Operator Name Role Phone Susannah Manoj Kirby APRN, C.N.P., M.S.N. Primary C are Provider Reason for Visit * Appointment Request (Routine) - Closed Specialty Diagnoses / Procedures Referred By Armaan t Referred To Contact Long-Term Facility Referral ID Status Reason Start Date Expiration Date Visits Re quested Visits Authorized [id number] Closed 06/30/2023 06/29/2024 1 1 Encounter Details Date Type Department Care Team (Latest Contact Info) Description 06/30/2023 3:00 PM COMPLIANCE INVESTIGATOR External Outreach [facility] in [facility] [id number] [address] Arlette Nath APRN, C.N.P. [address] [place] [phone] Urinary Tract Infection Site Not Specified (Primary [...] (HCC); Diabetes Mellitus Type 2 Ulcer Foot ([facility]) Social History Tobacco Use Types Packs/Day Years [...] Sign Reading Time Taken Comments Blood Pressure 132/66 06/30/2023 3:58 PM COMPLIANCE INVESTIGATOR Pulse 74 06/30/2023 3:58 PM COMPLIANCE INVESTIGATOR Temperature 36.5 ??C (97.7 ??F) 06/30/2023 3:58 PM CS T Respiratory Rate 18 06/30/2023 3:58 PM COMPLIANCE INVESTIGATOR Oxygen Saturation 96% 06/30/2023 3:58 PM COMPLIANCE INVESTIGATOR Inhaled Oxygen Concentration - - Weight 135 kg (296 lb 9.6 oz) 06/30/2023 3:58 PM COMPLIANCE INVESTIGATOR Height - - Body Mass Index - - documented in this encounter Patient Instructions * Patient Instructions* Arlette Nath V., EDUARDO, C.N.P. - 06/30/2023 3:00 PM COMPLIANCE INVESTIGATOR : 1950 ORDERS and INSTRUCTIONS: Medication Reconciliation/Admit Visit done Orders Placed This Encounter Full code Order Specific Question: Full Code Answer: Discussed DISCONTD: insulin lispro (HumaLOG U-100 Insulin) 100 unit/mL injection Sig: Sliding scale 150-199-3U, 200-249-6U 250-299-9U, 300-399 12U, 399+ 18 U and call MD Dispense: 30 mL Refill: 11 levothyroxine (SYNTHROID, LEVOTHROID) 88 mcg tablet Sig: Take 1 tablet (88 mcg total) by mouth daily. Dispense: 90 tablet Refill: 3 insulin lispro (HumaLOG U-100 Insulin) 100 unit/mL injection Sig: Sliding scale 150-199-3U, 200-249-6U 250-299-9U, 300-399 12U, 399+ 18 U and call MD Dispense: 30 mL Refill: 11 pantoprazole (PROTONIX) 40 mg EC tablet Sig: Take 1 tablet (40 mg total) by mouth every morning before breakfast. Dispense: 90 tablet Refill: 3 mycophenolate (CELLCEPT) 250 mg capsule Sig: Take 3 capsules (750 mg total) by mouth every 12 (twelve) hours. Dispense: 540 capsule Refill: 3 Order Specific Question: Is the ordering provider enrolled in the REMS program? Answer: No Order Specific Question: Please provide rationale Answer: [facility] resident ordered by anither provider Order Specific Question: I certify that I have reviewed and ensured compliance to the REMS program requirements outlined in the reference links Answer: No Order Specific Question: Please provide rationale Answer: [facility] admit ordered by another clinician DISCONTD: potassium chloride (K-TAB) 20 mEq CR tablet Sig: Take 1 tablet (20 mEq total) by mouth 2 (two) times a day. Dispense: 60 tablet Refill: 11 torsemide (DEMADEX) 20 mg tablet Sig: Take 1 tablet (20 mg total) by mouth 2 (two) times a day. Dispense: 180 tablet Refill: 3 apixaban (ELIQUIS) 2.5 mg tablet Sig: Take 1 tablet (2.5 mg total) by mouth 2 (two) times a day. Dispense: 180 tablet Refill: 3 tamsulosin (FLOMAX) 0.4 mg 24 hr capsule Sig: Take 1 capsule (0.4 mg total) by mouth 2 (two) times a day. Dispense: 180 capsule Refill: 3 rosuvastatin (CRESTOR) 10 mg tablet Sig: Take 1 tablet (10 mg total) by mouth at bedtime. Dispense: 90 tablet Refill: 3 NIFEdipine (ADALAT CC) 60 mg ER tablet Sig: Take 1 tablet (60 mg total) by mouth daily. Dispense: 90 tablet Refill: 3 potassium chloride (K-TAB) 20 mEq CR tablet Sig: Take 1 tablet (20 mEq total) by mouth 2 (two) times a day. Dispense: 180 tablet Refill: 3 cefTRIAXone in dextrose, iso osm, (ROCEPHIN) 1 gram/50 mL IVBP Sig: Infuse 1 g into a venous catheter daily Indications: Lower UTI, Non-Catheter. pregabalin (LYRICA) 100 mg capsule Sig: Take 1 capsule (100 mg total) by mouth 2 (two) times a day. Will start once gabapentin is finished Dispense: 180 capsule Refill: 3 Electronically signed by: Arlette Nath APRN, C.NArsh 07/01/23 3:52 PM COMPLIANCE INVESTIGATOR LIANCE INVESTIGATOR documented in this encounter H&P Notes * Arlette Nath APRN, C.NArsh - 06/30/2023 3:00 PM CST CHIEF COMPLAINT / REASON FOR VISIT [facility] Admission / Medication Reconciliation Visit Visit Type: In Person: Face to Face Hospital: [facility] Admit: 06/26/23 Discharge: 06/29/23 Full Code SUBJECTIVE HISTORY OF PRESENT ILLNESS Today's narrative history (obtained from Patient and Nursing): Mr. Diego Guthrie is a 73 y.o. male with a history of charcot foot, CKD, kidney transplant recipient, type 2 diabetes who presents with increasing weakness. Patient was in the hospital and discharged 06/24 for a TIA and bradycardia. Since discharge, he has had generalized increased weakness at home. He did have 1 fall the morning of admit and was unable to get himself off the floor. He denies inju vivek from his fall. He does endorse urinary frequency and dysuria. He does have a history of renal transplant. Right kidney in 2013 at [facility]. He was on dialysis for short period and a left leg amputation due to infection of his foot. He had hematuria and a UTI. Staff at [facility] contacted [facility] transplant and rocephin 1 gm per PICC was ordered. Nursing reports he washallucinating during the night. He was eating pudding one time and petting cats another time. He denies hallucinations. He states that he has vivid dreams. He is a good historian today. 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 There are small superficial open areas. Wound bedsare clean and pink. No drainage noted. Urinary Tract Infection Site Not Specified Overview: He is currently receiving Rocephin 1 GM per PICC in Left arm #15 Pancreas Disease Overview: He denies and cancerous lesions. CT Abdomen Pelvis without IV Contrast IMPRESSION: [...] lesions, pancreatic protocol MRI recommended. 5. Cholelithiasis. Sleep Disorder Overview: CHANELL refuses CPAP Past medical/surgical history, social history, medications, and allergies were reviewed and are visible in the Encounter view. Review of systems was performed, as allowable by patient's cognitive status, and incorporating collateral history if applicable. Relevant positives are noted elsewhere in this note, otherwise negative. OBJECTIVE BP 132/66 Pulse 74 Temp 36.5 ??C Resp 18 Wt 135 kg SpO2 96% PHYSICAL EXAM Vitals and nursing note reviewed. Exam conducted with a medical director of hospice present. Constitutional Appearance: He is obese. HENT Head: Normocephalic and atraumatic. Right Ear: External ear normal. Left Ear: External ear normal. Nose: Nose normal. Mouth/Throat: Mouth: Mucous membranes are dry. Pharynx: Oropharynx is clear. Eyes Conjunctiva/sclera: Conjunctivae normal. Cardiovascular Rate and Rhythm: Normal rate and regular rhythm. Pulses: Normal pulses. Heart sounds: Normal heart sounds. Pulmonary Effort: Pulmonary effort is normal. Breath sounds: Normal breath sounds. Abdominal General: Bowel sounds are normal. Palpations: Abdomen is soft. Musculoskeletal Cervical back: Normal range of motion. Comments: LBKA amputation Skin General: Skin is warm and dry. Neurological Mental Status: He is alert. Mental status is at baseline. Psychiatric Mood and Affect: Mood normal. Behavior: Behavior normal. Thought Content: Thought content normal. Judgment: Judgment normal. ASSESSMENT / PLAN Full background details regarding problems addressed at today's visit can be found in the HPI. Pertinent changes to the care plan based on today's evaluation are explicitly discussed below, otherwiselisted problems are stable and present management will be continued. #1 Malignant Neoplasm Of Pancreatic Duct (HCC) #2 Immunodeficiency (HCC) Assessment & Plan: Extra precautions for respiratory viruses. 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 Dimethicone cream will be applied bid andprn #12 Pressure Injury (Ulcer) Of Left Buttock Stage 2 (HCC) #13 Urinary Tract Infection Site Not Specified Assessment & Plan: He is tolerating the medication well. #14 Pancreas Disease Assessment & Plan: No recent scans. He has a care conference scheduled next week. We will need to find out what he would like for follow up for his plan of care regarding the pancreas and lung nodules. #15 Sleep Disorder Assessment & Plan: Sleeps in recliner at home and now in the [facility]. He had been on Ambien a few times a week at home. The Ambien was ordered upon admit. Ambien was discontinued.It is an inappropriate medication for people 65 and older. It can cause vivid dreams and sleep walking. Nursing will monitor his O2 sats during the night and apply oxygen per [place] per standing orders if sats go below 90 %\. #16 Transplant Renal (HCC) Assessment & Plan: [facility] [address] [place] [phone] Gretta Peacock RN S Iron Worker. 06/27/2023 TACROLIMUS 4.5 DATE OF LAST DOSE,TACROLIMUS 06/26/2023 TIME OF LAST DOSE,TACROLIMUS 5:49 PM #17 Syncope And Collapse Assessment & Plan: He walks with a walker. He has left BKA left side with prosthesis and built up shoes bilaterally #18 Major Depressive Disorder Single Episode Unspecified Assessment & Plan: s iron worker will monitor PHQ-9 #19 Infection Bacterial Assessment & Plan: He will complete the course of rocephin. cefTRIAXone (ROCEPHIN) 1 gram injection Indications: Urinary tract infection without hematuria, site unspecified Inject 1,000 mg intravenous every 24 hours for 4 days. 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 He stopped at [employer] on his way to the [facility] from [facility]. 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 #26 Diabetes Mellitus Type 2 Ulcer Foot ([facility]) Assessment & Plan: Wound measures 1,.4 cm x 1 cm and 0,2 cm deep. Wound has inner huslia of slough with erythema in the periwound carmona. Wound was cleansed with saline and dried Wound culture obtained. Santyl will be applied to wound bed, covered with sterile 2 x 2 gauze and island dressing Change daily Other orders - Full code - levothyroxine (SYNTHROID, LEVOTHROID) 88 mcg tablet; Take 1 tablet (88 mcg total) by mouth daily., Starting Tue07/01/2023, Until 06/30/2024, Normal - insulin lispro (HumaLOG U-100 Insulin) 100 unit/mL injection; Sliding scale 150-199-3U, 200-249-6U 250-299-9U, 300-399 12U, 399+ 18 U and call MD, Sri - pantoprazole (PROTONIX) 40 mg EC tablet; Take 1 tablet (40 mg total) by mouth every morning before breakfast., Starting Tue07/01/2023, Until Tue06/30/2024, Normal - mycophenolate (CELLCEPT) 250 mg capsule; Take 3 capsules (750 mg total) by mouth every 12 (twelve) hours., Starting Tue07/01/2023, Until Tue06/30/2024, Normal - torsemide (DEMADEX) 20 mg tablet; Take 1 tablet (20 mg total) by mouth 2 (two) times a day., Starting Tue07/01/2023, Until Tue06/30/2024, Normal - apixaban (ELIQUIS) 2.5 mg tablet; Take 1 tablet (2.5 mg total) by mouth 2 (two) times a day., Starting Tue07/01/2023, Until Tue06/30/2024, Normal - tamsulosin (FLOMAX) 0.4 mg 24 hr capsule; Take 1 capsule (0.4 mg total) by mouth 2 (two) times a day., Starting Tue07/01/2023, Until Tue06/30/2024, Normal - rosuvastatin (CRESTOR) 10 mg tablet; Take 1 tablet (10 mg total) by mouth at bedtime., Starting Tue07/01/2023, Until Tue06/30/2024, Normal - NIFEdipine (ADALAT CC) 60 mg ER tablet; Take 1 tablet (60 mg total) by mouth daily., Starting Tue07/01/2023, Until Tue06/30/2024, Normal - potassium chloride (K-TAB) 20 mEq CR tablet; Take 1 tablet (20 mEq total) by mouth 2 (two) times a day., Starting Tue07/01/2023, Until Tue06/30/2024, Normal - pregabalin (LYRICA) 100 mg capsule; Take 1 capsule (100 mg total) by mouth 2 (two) times a day. Will start once gabapentin is finished, Starting Tue07/01/2023, Until Tue06/30/2024, Normal PATIENT EDUCATION Ready to learn, no apparent learning barriers were identified; learning preferences include listening. Explained diagnosis and treatment plan; patient/child/caregiver expressed understanding of the content. BILLING Billing based on: Time, including the following tasks: reviewing the electronic medical record, updating the EPIC Problem List, reviewing written facility- provided information, medication reconciliation, obtaining collateral history from facility staff, obtaining collateral history from family member(s), Interviewing and examining the patient, placing orders, communicating orders to facility. Total time 44 minutes. LIANCE INVESTIGATOR documented in this encounter Miscellaneous Notes * Assessment & Plan Note - Arlette Nath APRN, C.N.P. - 07/01/2023 3:50 PM CSTAssociated Problem(s): 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) Wound measures 1,.4 cm x 1 cm and 0,2 cm deep. Wound has inner huslia of slough with erythema in the periwound carmona. Wound was cleansed with saline and dried Wound culture obtained. Santyl will be applied to wound bed, covered with sterile 2 x 2 gauze and island dressing Change daily LIANCE INVESTIGATOR * Assessment & Plan Note - Arlette Nath APRN, C.N.P. - 07/01/2023 3:45 PM CSTAssociated Problem(s): Chronic Diastolic (Congestive) Heart Failure (HCC) Continue current plans LIANCE INVESTIGATOR * Assessment & Plan Note - Arlette Nath APRN, C.N.P. - 07/01/2023 3:42 PM CSTAssociated Problem(s): Anxiety Generalized Disorder Nursing to monitor anxiety LIANCE INVESTIGATOR * Assessment & Plan Note - Arlette Nath APRN, C.N.P. - 07/01/2023 3:41 PM CSTAssociated Problem(s): Apnea Sleep Obstructive Nursing will monitor O2 Sats and apply oxygen to keep sats greater than 90% LIANCE INVESTIGATOR * Assessment & Plan Note - Arlette Nath APRN, C.N.P. 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 He stopped at [employer] on his way to the [facility] from [facility]. LIANCE INVESTIGATOR * Assessment & Plan Note - Arlette Nath APRN, C.N.P. - 07/01/2023 3:35 PM CSTAssociated Problem(s): 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HCC) Fistula not used since renal transplant LIANCE INVESTIGATOR * Assessment & Plan Note - Arlette Nath APRN, C.N.P. 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 LIANCE INVESTIGATOR * Assessment & Plan Note - Arlette Nath APRN, C.N.P. - 07/01/2023 3:29 PM CSTAssociated Problem(s): Infection Bacterial (Resolved 07/11/2023) He will complete the course of rocephin. cefTRIAXone (ROCEPHIN) 1 gram injection Indications: Urinary tract infection without hematuria, site unspecified Inject 1,000 mg intravenous every 24 hours for 4 days. 4 g 0 06/29/2023 07/03/2023 LIANCE INVESTIGATOR * Assessment & Plan Note - Arlette Nath APRN, C.N.P. - 07/01/2023 3:24 PM CSTAssociated Problem(s): Major Depressive Disorder Single Episode Unspecified s iron worker will monitor PHQ-9 LIANCE INVESTIGATOR * Assessment & Plan Note - Arlette Nath APRN, C.N.P. - 07/01/2023 3:23 PM CSTAssociated Problem(s): Syncope And Collapse (Resolved 07/11/2023) He walks with a walker. He has left BKA left side with prosthesis and built up shoes bilaterally LIANCE INVESTIGATOR * Assessment & Plan Note - Arlette Nath APRN, C.N.P. - 07/01/2023 3:20 PM CSTAssociated Problem(s): Transplant Renal (HCC) [facility] [address] [place] [phone] Gretta Peacock RN S Iron Worker. 06/27/2023 TACROLIMUS 4.5 DATE OF LAST DOSE,TACROLIMUS 06/26/2023 TIME OF LAST DOSE,TACROLIMUS 5:49 PM LIANCE INVESTIGATOR * Assessment & Plan Note - Arlette Nath APRN, C.N.P. - 07/01/2023 2:28 PM CSTAssociated Problem(s): Sleep Disorder Sleeps in recliner at home and now in the [facility]. He had been on Ambien a few times a week at home. The Ambien was ordered upon admit. Ambien was discontinued.It is an inappropriate medication for people 65 and older. It can cause vivid dreams and sleep walking. Nursing will monitor his O2 sats during the night and apply oxygen per [place] per standing orders if sats go below 90 %\. LIANCE INVESTIGATOR * Assessment & Plan Note - Arlette Nath APRN, C.N.P. - 07/01/2023 2:15 PM CSTAssociated Problem(s): Pancreas Disease No recent scans. He has a care conference scheduled next week. We will need to find out what he would like for follow up for his plan of care regarding the pancreas and lung nodules. LIANCE INVESTIGATOR * Assessment & Plan Note - Arlette Nath APRN, C.N.P. - 07/01/2023 2:00 PM CSTAssociated Problem(s): Pressure Injury (Ulcer) Of Right Buttock Stage 2 (HCC) Wounds will be cleansed with water and dried bid and prn. Dimethicone cream will be applied bid andprn LIANCE INVESTIGATOR * Assessment & Plan Note - Arlette Nath APRN, C.N.P. - 07/01/2023 1:56 PM CSTAssociated Problem(s): Urinary Tract Infection Site Not Specified (Resolved 07/11/2023) He is tolerating the medication well. LIANCE INVESTIGATOR * Assessment & Plan Note - Arlette Nath APRN, C.N.P. 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 LIANCE INVESTIGATOR * ACP (Advance Care Planning) - Arlette Nath APRN, C.N.P. - 06/30/2023 3:00 PM CST Advance Care Planning Reason for Conversation This patient is a 73 y.o. year old male that presents for [facility] Medication Reconciliation /Admit. 1. Patient has understanding of conditions: yes 2. Patient understands treatment options: yes 3. Patient has potential benefits and risks of proposed treatments/interventions: yes. Alternative Decision Maker: The patient, Diego Guthrie, expresses the following preference: Arnoldo Trinidad, friend Optional Expression of Values/Preferences for Specific Life-Prolonging Treatments: Full Code The patient, Diego Guthrie, indicates the following preference: Attempt CPR, this requires full medical treatment including mechanical ventilation Others Present: The following person/people were also present during the discussion: None Other Comments: He will be full code in the [facility] LIANCE INVESTIGATOR documented in this encounter Plan of Treatment Upcoming Encounters Date Type Department Care Team (Late st Contact Info) Description 09/01/2023 11:30 AM COMPLIANCE INVESTIGATOR Office Visit Department of Urology in [place], [place] [address] [place] [phone] Antonia Krause APRN, C.N.P. [address] [phone] documented as of this encounter Visit Diagnoses Diagnosis Urinary Tract Infection Site Not Specified- Primary Malignant Neoplasm Of Pancreatic Duct (HCC) Immunodeficiency (HCC) Pressure Induced Deep Tissue Damage Of Left Buttock Chronic Diastolic (Congestive) Heart Failure (HCC) Depression Major Recurrent Moderate (HCC) Diabetes Mellitus Type 2 With Other Skin Complication (HCC) 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HCC) Morbid Obesity (HCC) Hyperparathyroidism Renal Secondary (HCC) Unspecified Abnormalities Of Gait And Mobility Pressure Injury (Ulcer) Of Right Buttock Stage 2 (HCC) Pressure Injury (Ulcer) Of Left Buttock Stage 2 (HCC) Pancreas Disease Sleep Disorder Transplant Renal (HCC) Syncope And Collapse Major Depressive Disorder Single Episode Unspecified Infection Bacterial 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 [address] [place] [phone] PCP - General Internal Medicine 06/30/23 08/10/23 documented as of this encounter
--- OUTSIDE RECORDS SUMMARY | 2023-08-31 13:07 | XMS_ITS | Encounter Summary ---
Author Name Unknown Organization [facility] Address [address] [place] [address] Care Team Providers Care Landscape Foreman Name Role Phone Manoj Davalos Kofi CLARK, C.N.P., M.S.N. 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 [address] [place] [phone] [facility] Referral ID Status Reason Start Date Expiration Date Visits Re quested Visits Authorized [id number] Closed 07/04/2023 07/03/2026 1 1 DING MACHINE OPERATOR * Outpatient (Routine) - Closed Specialty Diagnoses / Procedures Referred By Armaan howell Referred To Contact Urology Diagnoses Cystitis Recurrent Other Urethral 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 Victorina Dowell M.D. [address] [place] [phone] Ebenezer Sanchez M.D. [address] [place] [phone] Referral ID Status Reason Start Date Expiration Date Visits Re quested Visits Authorized [id number] Closed 07/04/2023 07/03/2026 1 1 DING MACHINE OPERATOR Reason for Visit * Reason Comments Routine Longterm Visit SNF admission * Appointment Request (Routine) - Closed Specialty Diagnoses / Procedures Referred By Contac t Referred To Contact [facility] Referral ID Status Reason Start Date Expiration Date Visits Re quested Visits Authorized [id number] Closed 06/30/2023 06/29/2024 1 1 Encounter Details Date Type Department Care Team (Latest Contact Info) Description 07/04/2023 3:00 PM BOARDING MACHINE OPERATOR External Outreach [facility] [id number] [phone] Victorina Cao M.D. 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 Hyperglycemic (HCC); Depression Major Recurrent Moderate (HCC); Chronic Diastolic (Congestive) Heart Failure ([facility]); Apnea Sleep Obstructive; Anemia Of Chronic Renal Disease; Cystitis Recurrent; Gastroesophageal Reflux Disease Without Esophagitis; Diabetes Mellitus Type 2 With Diabetic Neuropathy Hyperglycemic (HCC); Other Urethral 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; Hyperlipidemia; Atrial Fibrillation Permanent (HCC); Intermediate (Current) Anticoagulant Treatment; Hypothyroidism On Replacement; 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 (HCC); 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 Rate 15-29 (HCC); Polyneuropathy; Bradycardia; Pressure Injury (Ulcer) Of Right Ankle Stage 2 (HCC); Insomnia Social History Tobacco Use Types Packs/Day Years [...] Sign Reading Time Taken Comments Blood Pressure 150/78 07/04/2023 6:11 PM BOARDING MACHINE OPERATOR Pulse 81 07/04/2023 6:11 PM BOARDING MACHINE OPERATOR Temperature 36.6 ??C (97.8 ??F) 07/04/2023 6:11 PM CS T Respiratory Rate 16 07/04/2023 6:11 PM BOARDING MACHINE OPERATOR Oxygen Saturation 95% 07/04/2023 6:11 PM BOARDING MACHINE OPERATOR Room air Inhaled Oxygen Concentration - - Weight 134 kg (294 lb 6.4 oz) 07/04/2023 6:11 PM BOARDING MACHINE OPERATOR Height 182.9 cm (6') 07/04/2023 6:11 PM BOARDING MACHINE OPERATOR Body Mass Index 39.93 07/04/2023 6:11 PM BOARDING MACHINE OPERATOR documented in this encounter Patient Instructions * Patient Instructions* Victorina Dowell M.D. - 07/04/2023 3:00 PM BOARDING MACHINE OPERATOR 1. Remove PICC line 2. Discontinue zolpidem 3. Please arrange for urology follow-up in the outpatient setting. He is overdue for follow-up regarding urethral stricture. 4. At discharge, he needs appointment scheduled with Dr. Forbes through [facility] in [place]. 5. COMPUTER AIDED DESIGN DRAFTER to follow-up blood sugars next week. ORDERS and INSTRUCTIONS: Orders Placed This Encounter Return to provider in another specialty Standing Status: Future Standing Expiration Date: 10/04/2024 Referral Priority: Routine Referral Type: Outpatient Referral Location: [facility] Region Referred to Provider: Ebenezer Sanchez M.D. Number of Visits Requested: 1 [facility] office visit (clinic) Follow-up blood sugars. Standing Status: Future Standing Expiration Date: 10/04/2024 Referral Priority: Routine Referral Type: Outpatient Referral Location: [facility] Region Number of Visits Requested: 1 melatonin 3 mg tablet Sig: Take 1 tablet (3 mg total) by mouth at bedtime. Dispense: 30 tablet Refill: 1 Electronically signed by: Victorina Dowell M.D. 07/04/23 8:55 PM BOARDING MACHINE OPERATOR DING MACHINE OPERATOR documented in this encounter H&P Notes * Victorina Dowell M.D. - 07/04/2023 3:00 PM CST CHIEF COMPLAINT / REASON FOR VISIT [facility] Admission Visit Visit Type: In Person: Face to Face Living situation prior to admission: Town home in [place] with girlfriend Primary care provider: Dr. Forbes, [facility] in [place] SUBJECTIVE HISTORY OF PRESENT ILLNESS Today's narrative history (obtained from Patient and Nursing): Diego Guthrie was admitted to [facility] on 06/29/2023 from [facility]. Patient was admitted there on 06/26/2023 with weakness associated with urine infection. PICC line was placed and he was treated with IV ceftriaxone with last dose scheduled 07/03. Hospital course was complicated by renal transplant status. The past medical history is significant for renal transplant, left BKA, diabetes on insulin, recurrent urine infections. He was hospitalized 06/22 to 06/24 with symptomatic bradycardia with concern for stroke due to expressive aphasia but no evidence on imaging. Since admission to [facility], he has had some loose stools which he states is not unusual. Wound on right ankle was draining on admission and culture has grown MRSA. He was startedon doxycycline earlier today. The following medical problems were actively reviewed (including updating overview sections as necessary) and addressed as part of today's visit: Diagnosis Overview 1. 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 Anemia Of Chronic Renal Disease 3. Apnea Sleep Obstructive Refuses CPAP 4. Atrial Fibrillation Permanent (HCC) Rate control recently changed to nifedipine from carvedilol due to difficult symptomatic bradycardia. He is on apixaban for anticoagulation. Dose may be subtherapeutic. 5. Bradycardia Hospitalized for symptomatic bradycardia 06/22 to 06/24/2023. Carvedilol transitioned to nifedipine. 6. Chronic Diastolic (Congestive) Heart Failure ([facility]) He is normotensive and hemodynamically stable on his current medications 7. 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 Rate 15-29 ([facility]) In the setting of renal transplant. Most recent GFR 28. Follows with renal transplant at [facility]. 8. Cystitis Recurrent Multiple recent urine infections with some leading to hospitalization. Urology evaluation 10/18/2022 with cystoscopy suggested urethral stricture as possible contributingfactor. 9. Depression Major Recurrent Moderate ([facility]) 10. Diabetes Mellitus Type 2 With Diabetic Neuropathy Hyperglycemic ([facility]) Symptoms addressed with pregabalin. 11. 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 13. Gastroesophageal Reflux Disease Without Esophagitis 14. Hyperlipidemia On rosuvastatin in the setting of diabetes. 15. Hypertension Secondary To Other Renal Disorders Blood pressures in range on nifedipine. Potassium and torsenide 16. Hypothyroidism On Replacement 17. Immunodeficiency Due To Conditions Classified Elsewhere ([facility]) Immunosuppression related to right renal transplant 2014 Mycophenolate and tacrolimus. 18. Insomnia 19. Intermediate (Current) Anticoagulant Treatment On apixaban in the setting of atrial fibrillation. 20. String Laster Use Of Insulin Active ([facility]) He uses long and short-acting insulins. 21. Morbid Obesity ([facility]) BMI Readings from Last 1 Encounters: 07/04/23 39.93 kg/m?? 22. Other Urethral 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 To evaluate recurrent urine infections, he underwent cystoscopy on 10/18/2022. 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 Recommendations at that time included: Adequate fluid intake Retract foreskin with each urination, clean and dry, and return foreskin to iroquois position. Returned to urology clinic in 6 months for uroflow and residual Returned to urology clinic sooner if recurrent infections 23. Pancreas Disease 08/12/2022 CT Abdomen Pelvis without IV Contrast [...] lesions, pancreatic protocol MRI recommended. 5. Cholelithiasis. 24. Polyneuropathy Diabetic polyneuropathy on pregabalin to control symptoms. 25. Pressure Injury (Ulcer) Of Right Ankle Stage 2 (HCC) Ulceration right lateral lower leg felt secondary to pressure from high top shoe. 26. Pressure Injury (Ulcer) Of Right Buttock Stage 2 (HCC) Chronic right buttock near gluteal cleft ulcers. There are small superficial open areas. Wound bedsare clean and pink. No drainage noted. 27. Transplant Renal ([facility]) - Primary Renal transplant 02/04/2014 to address end-stage renal disease on dialysis Follows with [facility]. 28. Weakness General This is multifactorial and related to recent acute infection, deconditioning, recent hospitalization, and immunodeficiency. Past medical/surgical history, social history, medications, and allergies were reviewed and are visible in the Encounter view. Review of systems was performed, as allowable by patient's cognitive status, and incorporating collateral history if applicable. Relevant positives are noted elsewhere in this note, otherwise negative. Eating: Good appetite Diet: Consistent carbohydrate, regular texture, regular consistency Pain: No complaints of pain Mobility: Assist of 1 Skin concerns: Ulcerations on buttocks and right lower leg Falls at facility: No Falls Continue activity: Physical therapy, occupational therapy, speech therapy Behavior/mood concerns: No concerns ADL status: Assist of 1 Vision, hearing or dentition concerns. Glasses Bladder: Occasionally incontinent Bowel: Occasionally incontinent BIMS: 15 PHQ-9: 0 OBJECTIVE BP 150/78 Pulse 81 Temp 36.6 ??C Resp 16 Ht 182.9 cm Wt 134 kg SpO2 95% Comment: Room air BMI 39.93 kg/m?? PHYSICAL EXAM GENERAL: Patient is alert and oriented. Patient is a good historian. HEART: Slow and irregular. LUNGS: Clear without wheeze crackle or rhonchus. ABDOMEN: Normal bowel sounds. EXTREMITIES: Left BKA with prosthesis in place . Right leg with mild to moderate edema. SKIN: There is an ulceration approximately 1 to 2 cm in diameter right lateral lower leg. Shallow and dry. ASSESSMENT / PLAN Full background details regarding problems addressed at today's visit can be found in the HPI. Pertinent changes to the care plan based on today's evaluation are explicitly discussed below, otherwiselisted problems are stable and present management will be continued. #1 Weakness General Assessment & Plan: This is expected to improve with continued resolution of acute illness and with therapies. #2 Transplant Renal ([facility]) Assessment & Plan: Follows with renal transplant Service at the [facility]. On tacrolimus and mycophenolate. #3 Pressure Injury (Ulcer) Of Right Buttock Stage 2 ([facility]) Assessment & Plan: Wound care consists of cleansing b.i.d. and as needed after bowel movements. Apply simethicone cream twice daily and PRN. #4 Pancreas Disease Assessment & Plan: Lesions noted on CT scan July 2022. Pancreas MRI recommended. It is unclear whether he has had follow-up regarding this. 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 He has had recent adjustments in attempt to improve control. Orders: - [facility] office visit (clinic); Future; Expected date: 07/11/2023 #11 Depression Major Recurrent Moderate ([facility]) Assessment & Plan: On escitalopram. Most recent PHQ-9 0. #12 Chronic Diastolic (Congestive) Heart Failure ([facility]) Assessment & Plan: Renal function has been stable on current dose of torsemide. #13 Apnea Sleep Obstructive #14 Anemia Of Chronic Renal Disease Assessment & Plan: Most recent hemoglobin 11.6. #15 Cystitis Recurrent Assessment & Plan: He has completed a course of IV ceftriaxone and is awaiting clearance from Infectious Disease to pull PICC line. #16 Gastroesophageal Reflux Disease Without Esophagitis #17 Diabetes Mellitus Type 2 With Diabetic Neuropathy Hyperglycemic ([facility]) #18 Other Urethral 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 Assessment & Plan: He is due for urology follow-up, especially given hospitalization for infection. #19 Hyperlipidemia #20 Atrial Fibrillation Permanent ([facility]) #21 Intermediate (Current) Anticoagulant Treatment Assessment & Plan: He saw Cardiology 06/23/2023 at which time it was suggested that he may be on subtherapeutic dose of apixaban. It is unclear if he has had bleeding complications. Will defer to primary in the outpatient setting. #22 Hypothyroidism On Replacement Assessment & Plan: Lab Results Component Value Date TSH 4.61 01/14/2023 #23 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 (HCC) #24 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 Rate 15-29 ([facility]) #25 Polyneuropathy #26 Bradycardia #27 Pressure Injury (Ulcer) Of Right Ankle Stage 2 ([facility]) Assessment & Plan: Recent culture grew MRSA. He was started on doxycycline and local cares. Wound looks much better today than previous reports. #28 Insomnia Assessment & Plan: He is currently on zolpidem. Previous intent to discontinue. Will discontinue today. Orders: - melatonin 3 mg tablet; Take 1 tablet (3 mg total) by mouth at bedtime., Starting 07/04/2023, Normal Other orders - Return to provider in another specialty; Future; Expected date: 08/03/2023 #29 Disposition Planning This is a planned short-term retirement stay for rehabilitation. Patient plans to return to previous living situation at the completion of therapies. #30 Longterm Stay Justification Exam Current comorbidities, ADL need/level of debility requires skilled care/therapy. Medications and labs all reviewed and appropriate related to comorbidities, unless otherwise indicated. Physician order sheet signed. Continue physical therapy, occupational therapy, nutrition intervention, skin protection, and fall prevention. PATIENT EDUCATION Ready to learn, no apparent learning barriers were identified; learning preferences include listening. Explained diagnosis and treatment plan; patient/child/caregiver expressed understanding of the content. BILLING Billing based on: Time, including the following tasks: reviewing the electronic medical record, updating the EPIC Problem List, reviewing information in facility EMR, medication reconciliation, obtaining collateral history from facility staff, Interviewing and examining the patient, placing orders, communicating orders to facility. Total time 70 minutes. DING MACHINE OPERATOR documented in this encounter Miscellaneous Notes * Assessment & Plan Note - Victorina Dowell M.D. - 07/04/2023 8:48 PM CSTAssociated Problem(s): Insomnia He is currently on zolpidem. Previous intent to discontinue. Will discontinue today. DING MACHINE OPERATOR * Assessment & Plan Note - Victorina Dowell M.D. - 07/04/2023 8:30 PM CSTAssociated Problem(s): Pressure Injury (Ulcer) Of Right Ankle Stage 2 (HCC) Recent culture grew MRSA. He was started on doxycycline and local cares. Wound looks much better today than previous reports. DING MACHINE OPERATOR * Assessment & Plan Note - Victorina Dowell M.D. - 07/04/2023 8:26 PM CSTAssociated Problem(s): Depression Major Recurrent Moderate (HCC) On escitalopram. Most recent PHQ-9 0. DING MACHINE OPERATOR * Assessment & Plan Note - Victorina Dowell M.D. - 07/04/2023 8:25 PM CSTAssociated Problem(s): Intermediate (Current) Anticoagulant Treatment He saw Cardiology 06/23/2023 at which time it was suggested that he may be on subtherapeutic dose of apixaban. It is unclear if he has had bleeding complications. Will defer to primary in the outpatient setting. DING MACHINE OPERATOR * Assessment & Plan Note - Victorina Dowell M.D. - 07/04/2023 8:16 PM CSTAssociated Problem(s): Anemia Of Chronic Renal Disease Most recent hemoglobin 11.6. DING MACHINE OPERATOR * Assessment & Plan Note - Victorina Dowell M.D. - 07/04/2023 8:14 PM CSTAssociated Problem(s): Chronic Diastolic (Congestive) Heart Failure (HCC) Renal function has been stable on current dose of torsemide. DING MACHINE OPERATOR * Assessment & Plan Note - Victorina Dowell M.D. - 07/04/2023 8:13 PM CSTAssociated Problem(s): Cystitis Recurrent He has completed a course of IV ceftriaxone and is awaiting clearance from Infectious Disease to pull PICC line. DING MACHINE OPERATOR * Assessment & Plan Note - Victorina Dowell M.D. 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 He has had recent adjustments in attempt to improve control. DING MACHINE OPERATOR * Assessment & Plan Note - Victorina Dowell M.D. - 07/04/2023 8:04 PM CSTAssociated Problem(s): Hypothyroidism On Replacement Lab Results Component Value Date TSH 4.61 01/14/2023 DING MACHINE OPERATOR * Assessment & Plan Note - Victorina Dowell M.D. 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 DING MACHINE OPERATOR * Assessment & Plan Note - Victorina Dowell M.D. - 07/04/2023 7:58 PM CSTAssociated Problem(s): Pancreas Disease Lesions noted on CT scan July 2022. Pancreas MRI recommended. It is unclear whether he has had follow-up regarding this. DING MACHINE OPERATOR * Assessment & Plan Note - Victorina Dowell M.D. - 07/04/2023 7:20 PM CSTAssociated Problem(s): Pressure Injury (Ulcer) Of Right Buttock Stage 2 (HCC) Wound care consists of cleansing b.i.d. and as needed after bowel movements. Apply simethicone cream twice daily and PRN. DING MACHINE OPERATOR * Assessment & Plan Note - Victorina Dowell M.D. - 07/04/2023 7:17 PM CSTAssociated Problem(s): Transplant Renal (HCC) Follows with renal transplant Service at the [facility]. On tacrolimus and mycophenolate. DING MACHINE OPERATOR * Assessment & Plan Note - Victorina Dowell M.D. - 07/04/2023 7:15 PM CSTAssociated Problem(s): Weakness General This is expected to improve with continued resolution of acute illness and with therapies. DING MACHINE OPERATOR documented in this encounter Plan of Treatment Upcoming Encounters Date Type Department Care Team (Late st Contact Info) Description 09/01/2023 11:30 AM BOARDING MACHINE OPERATOR Office Visit Department of Urology in [place], [place] [address], [place] [phone] Antonia Krause APRN, C.N.P. 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 Hyperglycemic (HCC) Expected: 07/11/2023 (Approximate), Expires: 10/04/2024 documented as of this encounter Visit Diagnoses Diagnosis Transplant Renal (HCC)- Primary Weakness General Pressure Injury (Ulcer) Of Right Buttock Stage 2 (HCC) Pancreas Disease Morbid Obesity (HCC) Immunodeficiency Due To Conditions Classified Elsewhere (HCC) Hypertension Secondary To Other Renal Disorders 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HCC) String Laster Use Of Insulin Active (HCC) 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 Hyperglycemic (HCC) Depression Major Recurrent Moderate (HCC) Chronic Diastolic (Congestive) Heart Failure (HCC) Apnea Sleep Obstructive Anemia Of Chronic Renal Disease Cystitis Recurrent Gastroesophageal Reflux Disease Without Esophagitis Diabetes Mellitus Type 2 With Diabetic Neuropathy Hyperglycemic (HCC) Other Urethral 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 Hyperlipidemia Atrial Fibrillation Permanent (HCC) Intermediate (Current) Anticoagulant Treatment Hypothyroidism On Replacement 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 (HCC) 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 Rate 15-29 (HCC) Polyneuropathy Bradycardia Pressure Injury (Ulcer) Of Right Ankle Stage 2 (HCC) Insomnia documented in this encounter Care Teams Landscape Foreman Relationship Specialty Start Date End Date Manoj Davalos APRN, C.N.P., M.S.N. [address] [place] [phone] PCP - General Internal Medicine 06/30/23 08/10/23 documented as of this encounter
--- OUTSIDE RECORDS SUMMARY | 2023-08-31 13:07 | XMS_ITS | Encounter Summary ---
Author Name Unknown Organization [facility] Address [address] [place] [address] Care Team Providers Care Shoe Stock Associate Name Role Phone Elsewhere, Pcp Primary Care Provider Unavailabl e Reason for Referral * Outpatient (Routine) - Closed Specialty Diagnoses / Procedures Referred By Armaan t Referred To Contact Urology Diagnoses Urinary Tract Infection Site Not Specified Retention Urinary Momo Forbes M.D. [address] [place] [phone] [facility] Referral ID Status Reason Start Date Expiration Date Visits Re quested Visits Authorized [id number] Closed 03/28/2023 2024 1 1 Encounter Details Date Type Department Care Team (Late st Contact Info) Description 03/28/2023 [facility] [address] [place] [phone] Momo Forbes M.D. [address] [place] [address] Urinary Tract Infection Site Not Specified (Primary Dx); Retention Urinary Social History Tobacco Use Types Packs/Day Years [...] st Contact Info) Description 09/01/2023 11:30 AM ACCOUNTING ADVISORY SERVICES MANAGER Office Visit Department of Urology in [place], [place] [address] [place] [phone] Antonia Krause APRN, C.N.P. [address], [place] [address] Scheduled Referrals Name Type Priority Associated Diagnoses Orde r Schedule Urology Referral Outpatient Referral Routine Urinary Tract Infection Site Not Specified Retention Urinary Expected: 03/28/2023 (Approximate), Expires: 06/28/2024 documented as of this encounter Visit Diagnoses Diagnosis Urinary Tract Infection Site Not Specified- Primary Retention Urinary documented in this encounter Care Teams Shoe Stock Associate Relationship Specialty Start Date End Date Elsewhere, Pcp PCP - General Internal Medicine 08/12/22 06/29/23 documented as of this encounter
--- OUTSIDE RECORDS SUMMARY | 2023-08-31 13:07 | XMS_ITS | Encounter Summary ---
Author Name Unknown Organization [facility] Address [address] [place] [address] Care Team Providers Care Milk Receiver Name Role Phone Elsewhere, Pcp Primary Care Provider Unavailabl e Reason for Referral * Outpatient (Routine) - Closed Specialty Diagnoses / Procedures Referred By Armaan howell Referred To Contact Urology Ebenezer Sanchez M.D. [address] [phone] [facility] Referral ID Status Reason Start Date Expiration Date Visits Re quested Visits Authorized [id number] Closed 10/18/2022 10/17/2025 1 1 ARED FOODS ASSOCIATE Reason for Visit * Reason Comments Follow-up * Outpatient (Routine) - Closed Specialty Diagnoses / Procedures Referred By Armaan howell Referred To Contact Urology Antonia Krause APRN, C.N.P. [address] [place] [phone] [facility] Referral ID Status Reason Start Date Expiration Date Visits Re quested Visits Authorized [id number] Closed 09/21/2022 09/20/2025 1 1 Encounter Details Date Type Department Care Team (Late st Contact Info) Description 10/18/2022 2:30 PM PREPARED FOODS ASSOCIATE Office Visit Department of Urology in [place], [place] [address] [place] [phone] Ebenezer Sanchez M.D. [address] [place] [phone] Urinary Tract Infection Site Not Specified (Primary Dx); Postprocedural Fossa Navicularis Urethral Stricture Social History Tobacco Use Types Packs/Day Years [...] Procedure Notes * Ebenezer Sanchez M.D. - 10/18/2022 2:30 PM CST CHIEF COMPLAINT / REASON FOR VISIT Cystoscopy. The patient was appropriately identified with at least two separate identifiers and the correct procedure was confirmed. Verbal consent was obtained. INDICATION: Recurrent urinary tract infections, renal transplant patient INSTRUMENT: Flexible cystourethroscope. ANESTHESIA: 2% aqueous lidocaine jelly introduced into the urethra. PROCEDURE: The patient was placed in a supine position. The genitalia were prepped and draped sterilely. The urethra was anesthetized with 2% aqueous lidocaine jelly. The cystoscope was advanced intothe urethra. FINDINGS: Meatus: Normal. Urethra: . 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 This calibrate to between 16 and 18 Malay. Prostate: Length: 2.5 cm. Lateral Lobes: Mild hypertrophy with no visual obstruction. Middle Lobe: absent. Bladder Neck: Normal. Residual Urine: Minimal (< 75 ml). Ureteral Orifices: Singular bilaterally, normal position on the trigone, slit- like in configurationwithout efflux present. A brock ureteral orifice is present on the right side of the dome of the bladder. Trabeculation: mild to moderate. Tumors: No tumors, exophytic lesions, foreign bodies or calculi. The procedure was well tolerated by the patient. He was discharged from the office in satisfactory condition. Post-cystoscopy instructions were reviewed with him. IMPRESSION: Wide bore, nonobstructing fossa navicularis stricture. This likely is contributing to his urinary tract infections. Given that this is wide bore, I am not inclined to proceed with urethral dilation or any other procedure at this time. PLAN: Return to clinic in six months for uroflow and residual. If his stream slows down significantly, particularly if he goes on to have more infections, we could consider urethral dilation or otheroptions. At this time, the patient is asked to maintain a high fluid intake. He is also asked to retract theforeskin with each urination, clean and dry the head of the penis and return the foreskin to its eastern cherokee position after micturition. Ebenezer Sanchez M.D. 10/18/22 2:48 PM PREPARED FOODS ASSOCIATE ARED FOODS ASSOCIATE documented in this encounter Plan of Treatment Upcoming Encounters Date Type Department Care Team (Late st Contact Info) Description 09/01/2023 11:30 AM PREPARED FOODS ASSOCIATE Office Visit Department of Urology in [place], [place] [address] [phone] Antonia Krause, EDUARDO, C.N.P. [address] [phone] Scheduled Referrals Name Type Priority Associated Diagnoses Orde r Schedule Urology office visit (clinic) Outpatient Referral Routine Expected: 04/17/2023 (Approximate), Expires: 01/16/2024 documented as of this encounter Visit Diagnoses Diagnosis Urinary Tract Infection Site Not Specified- Primary Postprocedural Fossa Navicularis Urethral Stricture documented in this encounter Additional Health Concerns Infection Onset Date Last Indicated Resolved Time MRSA Comment:+MRSA-urine (straight cath): 08/03/22 08/03/2022 08/03/2022 11/01/2022 4:45 AM C DT documented as of this encounter Care Teams Milk Receiver Relationship Specialty Start Date End Date Elsewhere, Pcp PCP - General Internal Medicine 08/12/22 06/29/23 documented as of this encounter
--- OUTSIDE RECORDS SUMMARY | 2023-08-31 13:07 | XMS_ITS | Encounter Summary ---
Author Name Unknown Organization [facility] Address [address] [place] [address] Care Team Providers Care Master Automotive Technician Name Role Phone Dannie Davalosgumaro Kirby APRN, C.N.P., M.S.N. Primary C are Provider Encounter Details Date Type Department Care Team (Late st Contact Info) Description 07/11/2023 Orders Only Senior Services in [facility] [address] [phone] Arlette Nath APRN, C.N.P. [address] [facility] [place] [phone] Social History Tobacco Use Types Packs/Day Years [...] st Contact Info) Description 09/01/2023 11:30 AM YOUTH CARE PROFESSIONAL Office Visit Department of Urology in [place], [place] [address] [place] [phone] Antonia Krause APRN, C.N.P. [address], [place] [phone] documented as of this encounter Visit Diagnoses Not on filedocumented in this encounter Care Teams Master Automotive Technician Relationship Specialty Start Date End Date Manoj Davalos APRN, C.N.P., M.S.N. [address] [place] [phone] PCP - General Internal Medicine 06/30/23 08/10/23 documented as of this encounter
--- OUTSIDE RECORDS SUMMARY | 2023-08-31 13:07 | XMS_ITS | Encounter Summary ---
Author Name Unknown Organization [facility] Address [address] [place] [address] Care Team Providers Care Water Pollution Control Technician Name Role Phone Elsewhere, Pcp Primary Care Provider Unavailabl e Reason for Referral * Outpatient (Routine) - Closed Specialty Diagnoses / Procedures Referred By Armaan howell Referred To Contact UrologEbenezer Vega M.D. [address] [place] [phone] [facility] Referral ID Status Reason Start Date Expiration Date Visits Re quested Visits Authorized [id number] Closed 05/09/2023 05/08/2026 1 1 Reason for Visit * Reason Comments Urinary Tract Infection Been on cipro fo r last 3 days Does not typically have symptoms noted. Follow-up Per Dr. Forbes * Outpatient (Routine) - Closed Specialty Diagnoses / Procedures Referred By Armaan howell Referred To Contact Urology Ebenezer Sanchez M.D. [address], [place] [address] [facility] Referral ID Status Reason Start Date Expiration Date Visits Re quested Visits Authorized [id number] Closed 10/18/2022 10/17/2025 1 1 Encounter Details Date Type Department Care Team (Late st Contact Info) Description 05/09/2023 3:30 PM CDT Office Visit Department of Urology in [place], [place] [address], [place] [phone] Ebenezer Sanchez M.D. [address] [phone] Transplant Renal (HCC) (Primary Dx); Urinary Tract Infection Site Not Specified; Retention Urinary; Postprocedural Fossa Navicularis Urethral Stricture Social History [...] documented as of this encounter Progress Notes * Ebenezer Sanchez M.D. - 05/09/2023 3:30 PM CDT SUBJECTIVE CHIEF COMPLAINT / REASON FOR VISIT Chief Complaint Patient presents with Urinary Tract Infection Been on cipro for last 3 days Does not typically have symptoms noted. Follow-up Per Dr. Forbes HISTORY OF PRESENT ILLNESS Diego Guthrie is a 73 y.o. male who has a history of recurrent UTIs and a renal transplant. Cystoscopy on October 18 of this year showed a mild wide bore stricture of the fossa navicularis. Itcalibrate to approximately 18 Guyanese. I was reluctant to a dilate, at the time because I was not convinced it was causing the problem. In the interval he has had two infections, including one now for which he is completing antibiotics. The following portions of the patient's history were reviewed and updated as appropriate: allergies, current medications, family history, medical history, social history, surgical history and problemlist. ASSESSMENT / PLAN #1 Urinary Tract Infection Site Not Specified #2 Retention Urinary PLAN: In the short term I would like him to add cranberry supplement (or juice) and vitamin-C. If he continues to have frequent UTIs, we will plan to see him in three months. He will need a urine culture prior to the visit. And we will plan to proceed with cystoscopy and urethral dilation. Ebenezer Sanchez M.D. 05/09/23 4:13 PM CDT documented in this encounter Plan of Treatment Upcoming Encounters Date Type Department Care Team (Late st Contact Info) Description 09/01/2023 11:30 AM FILLING STATION LABORER Office Visit Department of Urology in [place], [place] [address], [place] [phone] Antonia Krause APRN, C.N.P. [address], [place] [phone] Scheduled Referrals Name Type Priority Associated Diagnoses Orde r Schedule Urology office visit (clinic) Outpatient Referral Routine Expected: 08/08/2023 (Approximate), Expires: 08/08/2024 documented as of this encounter Results * (ABNORMAL) Bacterial Culture, Aerobic + Susceptibility, Urine (08/01/2023 1:20 PM FILLING STATION LABORER) Urine Culture SERRATIA MARCESCENS >100,000 cfu/mL (A) 08/03/2023 7:03 AM FILLING STATION LABORER MKTO Urine (Urine, Midstream) 08/01/2023 1:20 PM FILLING STATION LABORER 08/01/2023 6:48 PM FILLING STATION LABORER Comment:Specimen Source Site : Urine Narrative Organism [...] M.D. LAB MICROBIOLOGY - G ENERAL ORDERABLES [facility] [address] [place] [address], [facility] MKTO [facility] [place] [address] documented in this encounter Visit Diagnoses Diagnosis Transplant Renal (HCC)- Primary Urinary Tract Infection Site Not Specified Retention Urinary Postprocedural Fossa Navicularis Urethral Stricture documented in this encounter Care Teams Water Pollution Control Technician Relationship Specialty Start Date End Date Elsewhere, Pcp PCP - General Internal Medicine 08/12/22 06/29/23 documented as of this encounter
--- OUTSIDE RECORDS SUMMARY | 2023-08-31 13:07 | XMS_ITS | Encounter Summary ---
Author Name Unknown Organization [facility] Address [address] [place] [address] Care Team Providers Care Receptionist Airline Lounge Name Role Phone Elsewhere, Pcp Primary Care Provider Unavailabl e Encounter Details Date Type Department Care Team (Late st Contact Info) Description 10/18/2022 3:35 PM TYING MACHINE OPERATOR Ancillary Procedure Department of Urology Social History [...] st Contact Info) Description 09/01/2023 11:30 AM TYING MACHINE OPERATOR Office Visit Department of Urology in [place], [place] [address] [phone] Antonia Krause APRN, C.N.P. [address] [phone] documented as of this encounter Procedures Procedure Name Priority Date/Time Associated Diagnosis Comments UROLOGY IMAGE EXAM Routine 10/18/2022 2: 40 PM TYING MACHINE OPERATOR documented in this encounter Results * CYSTO-Urology Image Exam (10/18/2022 2:40 PM TYING MACHINE OPERATOR) 10/18/2022 3:34 PM TYING MACHINE OPERATOR Narrative IIMS - 10/18/2022 2:40 PM TYING MACHINE OPERATOR This order has been created and auto-finalized to support the import of images acquired without order. The clinical documentation to support these images can be found on the encounter that produced images. Provider Not In System IMG NON RAD IMAGI NG PROCEDURES IIMS NA documented in this encounter Visit Diagnoses Not on filedocumented in this encounter Additional Health Concerns Infection Onset Date Last Indicated Resolved Time MRSA Comment:+MRSA-urine (straight cath): 08/03/22 08/03/2022 08/03/2022 11/01/2022 4:45 AM C DT documented as of this encounter Care Teams Receptionist Airline Lounge Relationship Specialty Start Date End Date Elsewhere, Pcp PCP - General Internal Medicine 08/12/22 06/29/23 documented as of this encounter
--- OUTSIDE RECORDS SUMMARY | 2023-08-31 13:07 | XMS_ITS | Encounter Summary ---
Author Name Unknown Organization [facility] Address [address] [place] [address] Care Team Providers Care Cath Lab Radiological Technologist Name Role Phone Manoj Davalos Kofi CLARK, C.N.P., M.S.N. Primary C are Provider Encounter Details Date Type Department Care Team (Late st Contact Info) Description 07/08/2023 Clinical Communication Senior Services in [facility] [address] [phone] Arlette Nath APRN, C.N.P. [address] [place] [phone] Social History Tobacco Use Types Packs/Day Years [...] encounter Miscellaneous Notes * Telephone Encounter - Arlette Nath APRN, C.N.P. - 07/08/2023 9:15 AM WELL SERVICING RIG OPERATOR : 1950 ORDERS and INSTRUCTIONS: I was contacted by Jeana MCFADDEN that Diego had received his long acting insulin Levemir [address] units this morning in place of his short acting insulin. His current blood sugar is 120. Hold all insulin today and restart current regimen tomorrow. Give mid morning and mid afternoon snacks. Administer glucagon if need for blood sugar under 70. Electronically signed by: Arlette Nath APRN, C.N.P. 07/08/23 9:15 AM WELL SERVICING RIG OPERATOR SERVICING RIG OPERATOR documented in this encounter Plan of Treatment Upcoming Encounters Date Type Department Care Team (Late st Contact Info) Description 09/01/2023 11:30 AM WELL SERVICING RIG OPERATOR Office Visit Department of Urology in [place], [place] [address] [place] [phone] Antonia Krause APRN, C.N.P. [address] [place] [phone] documented as of this encounter Visit Diagnoses Not on filedocumented in this encounter Care Teams Cath Lab Radiological Technologist Relationship Specialty Start Date End Date Manoj Davalos APRN, C.N.P., M.S.N. [address] [place] [phone] PCP - General Internal Medicine 06/30/23 08/10/23 documented as of this encounter
--- OUTSIDE RECORDS SUMMARY | 2023-08-31 13:07 | XMS_ITS | Encounter Summary ---
Author Name Unknown Organization [facility] Address [address] [place] [address] Care Team Providers Care Panel Installer Name Role Phone Susannah Manoj Kirby APRN, C.N.P., M.S.N. 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 [address] [phone] [facility] Region Referral ID Status Reason Start Date Expiration Date Visits Re quested Visits Authorized [id number] Closed 07/04/2023 07/03/2026 1 1 Encounter Details Date Type Department Care Team (Latest Contact Info) Description 07/11/2023 10:00 AM COMMUNICATIONS ASSOCIATE External Outreach [facility] [address] [phone] Victorina Cao M.D. 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 Hyperglycemic ([facility]); Diabetes Mellitus Type 2 With Diabetic Neuropathy Hyperglycemic ([facility]); Insomnia; Transplant Renal ([facility]); Sleep Disorder; Pressure Injury (Ulcer) Of Right Buttock Stage 2 (HCC); Pressure Injury (Ulcer) Of Right Ankle Stage 2 (HCC); Polyneuropathy; Pancreas Disease; Other Urethral 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; Morbid Obesity ([facility]); Major Depressive Disorder Single Episode Unspecified; 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 Active ([facility]); Immunodeficiency Due To Conditions Classified Elsewhere ([facility]); Hypothyroidism On Replacement; Hypertension Secondary To Other Renal Disorders; Hyperlipidemia; Gastroesophageal Reflux Disease Without Esophagitis; 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[facility]); Diabetes Mellitus Type 2 Ulcer Foot ([facility]); Depression Major Recurrent Moderate ([facility]); 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 ([facility]) Social History Tobacco Use Types Packs/Day Years [...] Comments Blood Pressure 103/66 07/11/2023 8:54 AM COMMUNICATIONS ASSOCIATE Pulse 79 07/11/2023 8:54 AM COMMUNICATIONS ASSOCIATE Temperature 36.5 ??C (97.7 ??F) 07/11/2023 8:54 AM CS T Respiratory Rate 16 07/11/2023 8:54 AM COMMUNICATIONS ASSOCIATE Oxygen Saturation 97% 07/11/2023 8:54 AM COMMUNICATIONS ASSOCIATE Inhaled Oxygen Concentration - - Weight 134 kg (294 lb 6.4 oz) 07/11/2023 8:54 AM COMMUNICATIONS ASSOCIATE Height - - Body Mass Index 39.93 07/04/2023 6:11 PM COMMUNICATIONS ASSOCIATE documented in this encounter Patient Instructions * Patient Instructions* Kehinde Nath APRN, C.N.P. - 07/11/2023 10:00 AM COMMUNICATIONS ASSOCIATE : 1950 ORDERS and INSTRUCTIONS: Face to Face Discharge Visit Done Orders Placed This Encounter torsemide 40 mg tablet Sig: Take 40 mg by mouth daily. Dispense: 60 tablet Refill: 0 tacrolimus (PROGRAF) 0.5 mg capsule Sig: Take 1 capsule (0.5 mg total) by mouth 2 (two) times a day Indications: prevent kidney transplant rejection. Dispense: 60 capsule Refill: 0 pregabalin (LYRICA) 100 mg capsule Sig: Take 1 capsule (100 mg total) by mouth 2 (two) times a day. Will start once gabapentin is finished Dispense: 60 capsule Refill: 0 NIFEdipine (ADALAT CC) 60 mg ER tablet Sig: Take 1 tablet (60 mg total) by mouth daily. Dispense: 30 tablet Refill: 0 apixaban (ELIQUIS) 2.5 mg tablet Sig: Take 1 tablet (2.5 mg total) by mouth 2 (two) times a day. Dispense: 60 tablet Refill: 0 escitalopram (LEXAPRO) 20 mg tablet Sig: Take 1 tablet (20 mg total) by mouth daily. Dispense: 30 tablet Refill: 0 insulin detemir U-100 (Levemir FlexPen) 100 unit/mL (3 mL) injection Sig: Inject 42 Units under the skin at bedtime. Dispense: 12.6 mL Refill: 0 insulin lispro (HumaLOG U-100 Insulin) 100 unit/mL injection Sig: Inject 42 Units under the skin 3 (three) times a day with meals. Sliding scale 150-199-3U, 200-249-6U 250-299-9U, 300-399 12U, 399+ 18 U and call MD Dispense: 40 mL Refill: 0 levothyroxine (SYNTHROID, LEVOTHROID) 88 mcg tablet Sig: Take 1 tablet (88 mcg total) by mouth daily. Dispense: 30 tablet Refill: 0 melatonin 3 mg tablet Sig: Take 1 tablet (3 mg total) by mouth at bedtime. Dispense: 30 tablet Refill: 0 pantoprazole (PROTONIX) 40 mg EC tablet Sig: Take 1 tablet (40 mg total) by mouth every morning before breakfast. Dispense: 30 tablet Refill: 0 mycophenolate (CELLCEPT) 250 mg capsule Sig: Take 3 capsules (750 mg total) by mouth every 12 (twelve) hours. Dispense: 180 capsule Refill: 0 Order Specific Question: Is the ordering provider enrolled in the REMS program? Answer: No Order Specific Question: Please provide rationale Answer: Group Home resident ordered by anither provider Order Specific Question: I certify that I have reviewed and ensured compliance to the REMS program requirements outlined in the reference links Answer: No Order Specific Question: Please provide rationale Answer: [facility] admit ordered by another clinician potassium chloride (K-TAB) 20 mEq CR tablet Sig: Take 1 tablet (20 mEq total) by mouth 2 (two) times a day. Dispense: 60 tablet Refill: 0 rosuvastatin (CRESTOR) 10 mg tablet Sig: Take 1 tablet (10 mg total) by mouth at bedtime. Dispense: 30 tablet Refill: 0 tamsulosin (FLOMAX) 0.4 mg 24 hr capsule Sig: Take 1 capsule (0.4 mg total) by mouth 2 (two) times a day. Dispense: 60 capsule Refill: 11 Electronically signed by: Kehinde Nath APRN, C.N.P. 07/11/23 3:41 PM COMMUNICATIONS ASSOCIATE UNICATIONS ASSOCIATE documented in this encounter Progress Notes * Kehinde Nath APRN, C.N.P. - 07/11/2023 10:00 AM CST CHIEF COMPLAINT / REASON FOR VISIT [facility] Discharge Visit Visit Type: In Person: Face to Face SUBJECTIVE HISTORY OF PRESENT ILLNESS Today's narrative history (obtained from Patient and Nursing): Diego Guthrie is a 73 y.o. male who underwent rehab at [facility] from 06/25/23 to 07/13/23, after being hospitalized at [facility] from 06/26/23 to 06/29/23 for UTI and fall. Latrell has completed therapy and can be discharge to home with home PT. He completed his PICC course of Rocephin for the UTI and doxycycline for MRSA in a right lower leg nonhealing wound. The following medical problems were actively reviewed (including updating overview sections as necessary) and addressed as part of today's visit: Diagnosis Overview 1. 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 Depression Major Recurrent Moderate (HCC) On lexapro 3. 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 5. Hyperlipidemia On rosuvastatin in the setting of diabetes. 6. Hypertension Secondary To Other Renal Disorders Blood pressures in range on nifedipine. Potassium and torsenide 7. Immunodeficiency Due To Conditions Classified Elsewhere ([facility]) Immunosuppression related to right renal transplant 2014 Mycophenolate and tacrolimus. 8. Major Depressive Disorder Single Episode Unspecified Stable on Lexapro 9. Morbid Obesity ([facility]) BMI Readings from Last 1 Encounters: 07/04/23 39.93 kg/m?? 10. Pancreas Disease 08/12/2022 CT Abdomen Pelvis without [...] lesions, pancreatic protocol MRI recommended. 5. Cholelithiasis. 11. Polyneuropathy Diabetic polyneuropathy on pregabalin to control symptoms. 12. Sleep Disorder CHANELL refuses CPAP 13. Transplant Renal ([facility]) Renal transplant 02/04/2014 to address end-stage renal disease on dialysis Follows with [facility]. 14. 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 There are small superficial open areas. Wound bedsare clean and pink. No drainage noted. 15. 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 17. Weakness General - Primary This is multifactorial and related to recent acute infection, deconditioning, recent hospitalization, and immunodeficiency. 18. Hypothyroidism On Replacement Managed on levothyroxine 88 mcg daily 19. Other Urethral 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 To evaluate recurrent urine infections, he underwent cystoscopy on 10/18/2022. 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 Recommendations at that time included: Adequate fluid intake Retract foreskin with each urination, clean and dry, and return foreskin to [place] [employer] position. Returned to urology clinic in 6 months for uroflow and residual Returned to urology clinic sooner if recurrent infections 20. Diabetes Mellitus Type 2 With Diabetic Neuropathy Hyperglycemic (HCC) Recent A1C Status: Final result Component Ref [...] Humalog sliding scale Symptoms addressed with pregabalin. 21. Gastroesophageal Reflux Disease Without Esophagitis Managed on protonix 22. Pressure Injury (Ulcer) Of Right Ankle Stage 2 (HCC) Ulceration right lateral lower leg felt secondary to pressure from high top shoe. 23. Insomnia Latent sleep initiation. Past medical/surgical history, social history, medications, and allergies were reviewed and are visible in the Encounter view. Review of systems was performed, as allowable by patient's cognitive status, and incorporating collateral history if applicable. Relevant positives are noted elsewhere in this note, otherwise negative. OBJECTIVE BP 103/66 Pulse 79 Temp 36.5 ??C Resp 16 Wt 134 kg SpO2 97% BMI 39.93 kg/m?? PHYSICAL EXAM Vitals and nursing note reviewed. Constitutional Appearance: He is obese. HENT Head: [...] Cervical back: Normal range of motion. Comments: L BKA Right leg swollen Skin General: Skin is warm and dry. Capillary Refill: Capillary refill takes less than 2 seconds. Comments: See assessment for wound care Neurological General: No focal deficit present. Mental Status: He is alert and oriented to person, place, and time. Mental status is at baseline. Psychiatric Mood [...] and present management will be continued. 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 The patient had a [id number] encounter with a physician or an allowed [...] services: Dr. Momo Nath, EDUARDO, C.N.P. 07/11/23 #5 Transplant Renal ([facility]) Assessment & Plan: He follows with renal transplant Service at the [facility]. On tacrolimus and mycophenolate. #6 Sleep Disorder Assessment & Plan: He sleeps in a recliner with his head more upright #7 Pressure Injury (Ulcer) Of Right Buttock Stage 2 ([facility]) Assessment & Plan: SensaCare 2 cream is applied several times a day #8 Pressure Injury (Ulcer) Of Right Ankle Stage 2 ([facility]) Assessment & Plan: Wound has slough with granulating buds. There was MRSA in the wound. He has completed a course of doxycycline today. Silverstat will be applied to the wound daily after cleaning with saline and drying with a gauze.a gauze will be applied and secured with a rolled gauze. #9 Polyneuropathy Assessment & Plan: Continue lyrica #10 Pancreas Disease Assessment & Plan: He needs follow up with his PCP after discharge. 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 #15 Immunodeficiency Due To Conditions Classified Elsewhere ([facility]) Assessment & Plan: He will need to keep any follow up appointments with his transplant team #16 Hypothyroidism On Replacement #17 Hypertension Secondary To Other Renal Disorders Assessment & Plan: Continue current antihypertensive medications #18 Hyperlipidemia Assessment & Plan: Continue rosuvastatin #19 Gastroesophageal Reflux Disease Without Esophagitis Assessment & Plan: Asymptomatic with medication #20 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[facility]) Assessment & Plan: Lump under skin. #21 Diabetes Mellitus Type 2 Ulcer Foot ([facility]) Assessment & Plan: He was treated for MRSA in the wound. Daily dressing changes. 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 Will start once gabapentin is finished, Starting Tue07/11/2023, Until Tue08/10/2023, Normal - NIFEdipine (ADALAT CC) 60 mg ER tablet; Take 1 tablet (60 mg total) by mouth daily., Starting Tue07/11/2023, Until Tue08/10/2023, Normal - apixaban (ELIQUIS) 2.5 mg tablet; Take 1 tablet (2.5 mg total) by mouth 2 (two) times a day., Starting Tue07/11/2023, Until Tue08/10/2023, Normal - escitalopram (LEXAPRO) 20 mg tablet; Take 1 tablet (20 mg total) by mouth daily., Starting Tue07/11/2023, Until Tue08/10/2023, Normal - insulin detemir U-100 (Levemir FlexPen) 100 unit/mL (3 mL) injection; Inject 42 Units under the skin at bedtime., Starting Tue07/11/2023, Until Tue08/10/2023, Normal - insulin lispro (HumaLOG U-100 Insulin) 100 unit/mL injection; Inject 42 Units under the skin 3 (three) times a day with meals. Sliding scale 150-199-3U, 200-249-6U 250-299-9U, 300-399 12U, 399+ 18 U and call MD, Starting Tue07/11/2023, Until Tue08/12/2023, Normal - levothyroxine (SYNTHROID, LEVOTHROID) 88 mcg tablet; Take 1 tablet (88 mcg total) by mouth daily., Starting Tue07/11/2023, Until Tue08/10/2023, Normal - pantoprazole (PROTONIX) 40 mg EC tablet; Take 1 tablet (40 mg total) by mouth every morning before breakfast., Starting Tue07/11/2023, Until Tue08/10/2023, Normal - mycophenolate (CELLCEPT) 250 mg capsule; Take 3 capsules (750 mg total) by mouth every 12 (twelve) hours., Starting Tue07/11/2023, Until Tue08/10/2023, Normal - potassium chloride (K-TAB) 20 mEq CR tablet; Take 1 tablet (20 mEq total) by mouth 2 (two) times a day., Starting Tue07/11/2023, Until Tue08/10/2023, Normal - rosuvastatin (CRESTOR) 10 mg tablet; Take 1 tablet (10 mg total) by mouth at bedtime., Starting Tue07/11/2023, Until Tue08/10/2023, Normal - tamsulosin (FLOMAX) 0.4 mg 24 hr capsule; Take 1 capsule (0.4 mg total) by mouth 2 (two) times a day., Starting Tue07/11/2023, Until Tue07/10/2024, Normal #24 Disposition Follow up:PCP Other:Transplant Team as needed. Discharge Order: Latrell will discharge to home with home care when therapy goals are met. Medications ordered: 30 days to [facility] Scheduled Appointments 08/08/2023 1:30 PM bEenezer Sanchez M.D. Urology For appointment details refer to your Patient Appointment Guide. PATIENT EDUCATION Ready to learn, no apparent learning barriers were identified; learning preferences include listening. Explained diagnosis and treatment plan; patient/child/caregiver expressed understanding of the content. BILLING Billing based on: Time, including the following tasks: reviewing the electronic medical record, updating the EPIC Problem List, reviewing written facility- provided information, reviewing information in facility EMR, medication reconciliation, obtaining collateral history from facility staff, Interviewing and examining the patient, placing orders, communicating orders to facility. Total time 40 minutes. UNICATIONS ASSOCIATE documented in this encounter Miscellaneous Notes * Assessment & Plan Note - Kehinde Nath APRN, C.N.P. 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 - 07/11/2023 3:38 PM CSTAssociated Problem(s): 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) He was treated for MRSA in the wound. Daily dressing changes. UNICATIONS ASSOCIATE * Assessment & Plan Note - Kehinde Nath APRN, C.N.P. - 07/11/2023 3:37 PM CSTAssociated Problem(s): Diabetes Mellitus Type 2 With Diabetic Neuropathy Hyperglycemic (HCC) Levemir up to 42 units with Humalog sliding scale UNICATIONS ASSOCIATE * Assessment & Plan Note - Kehinde Nath APRN, C.N.P. - 07/11/2023 3:37 PM CSTAssociated Problem(s): 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HCC) Lump under skin. UNICATIONS ASSOCIATE * Assessment & Plan Note - Kehinde Nath APRN, C.N.P. - 07/11/2023 3:36 PM CSTAssociated Problem(s): Gastroesophageal Reflux Disease Without Esophagitis Asymptomatic with medication UNICATIONS ASSOCIATE * Assessment & Plan Note - Kehinde Nath APRN, C.N.P. - 07/11/2023 3:35 PM CSTAssociated Problem(s): Hyperlipidemia Continue rosuvastatin UNICATIONS ASSOCIATE * Assessment & Plan Note - Kehinde Nath APRN, C.N.P. - 07/11/2023 3:35 PM CSTAssociated Problem(s): Hypertension Secondary To Other Renal Disorders Continue current antihypertensive medications UNICATIONS ASSOCIATE * Assessment & Plan Note - Kehinde Nath APRN, C.N.P. - 07/11/2023 3:34 PM CSTAssociated Problem(s): Immunodeficiency Due To Conditions Classified Elsewhere (HCC) He will need to keep any follow up appointments with his transplant team UNICATIONS ASSOCIATE * Assessment & Plan Note - Kehinde Nath APRN, C.N.P. - 07/11/2023 3:32 PM CSTAssociated Problem(s): Insomnia He is sleeping well with the melatonin UNICATIONS ASSOCIATE * Assessment & Plan Note - Kehinde Nath APRN, C.N.P. - 07/11/2023 3:32 PM CSTAssociated Problem(s): Halfway Use Of Insulin Active (HCC) He will need diabetic follow up with his PCP after discharge. UNICATIONS ASSOCIATE * Assessment & Plan Note - Kehinde Nath APRN, C.N.P. - 07/11/2023 3:31 PM CSTAssociated Problem(s): Major Depressive Disorder Single Episode Unspecified Continue lexapro UNICATIONS ASSOCIATE * Assessment & Plan Note - Kehinde Nath APRN, C.N.P. - 07/11/2023 3:31 PM CSTAssociated Problem(s): Morbid Obesity (HCC) Maintain good nutrition for healing and health UNICATIONS ASSOCIATE * Assessment & Plan Note - Kehinde Nath APRN, C.N.P. 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 - 07/11/2023 3:29 PM CSTAssociated Problem(s): Pancreas Disease He needs follow up with his PCP after discharge. UNICATIONS ASSOCIATE * Assessment & Plan Note - Kehinde Nath APRN, C.N.P. - 07/11/2023 3:28 PM CSTAssociated Problem(s): Polyneuropathy Continue lyrica UNICATIONS ASSOCIATE * Assessment & Plan Note - Kehinde Nath APRN, C.N.P. - 07/11/2023 3:22 PM CSTAssociated Problem(s): Pressure Injury (Ulcer) Of Right Ankle Stage 2 (HCC) Wound has slough with granulating buds. There was MRSA in the wound. He has completed a course of doxycycline today. Silverstat will be applied to the wound daily after cleaning with saline and drying with a gauze.a gauze will be applied and secured with a rolled gauze. UNICATIONS ASSOCIATE * Assessment & Plan Note - Kehinde Nath APRN, C.N.P. - 07/11/2023 3:17 PM CSTAssociated Problem(s): Pressure Injury (Ulcer) Of Right Buttock Stage 2 (HCC) SensaCare 2 cream is applied several times a day UNICATIONS ASSOCIATE * Assessment & Plan Note - Kehinde Nath APRN, C.N.P. - 07/11/2023 3:16 PM CSTAssociated Problem(s): Sleep Disorder He sleeps in a recliner with his head more upright UNICATIONS ASSOCIATE * Assessment & Plan Note - Kehinde Nath APRN, C.N.P. - 07/11/2023 3:16 PM CSTAssociated Problem(s): Transplant Renal (HCC) He follows with renal transplant Service at the [facility]. On tacrolimus and mycophenolate. UNICATIONS ASSOCIATE * Assessment & Plan Note - Kehinde Nath APRN, C.N.P. - 07/11/2023 3:15 PM CSTAssociated Problem(s): Weakness General His strength has improved with therapy. He [...] or allowed practitioner. The patient had a [id number] encounter with a physician or an allowed [...] following for home care services: Dr. Momo Nath APRN, C.N.P. 07/11/23 UNICATIONS ASSOCIATE * Addendum Note - Kehinde Nath APRN, C.N.P. - 07/11/2023 10:00 AM COMMUNICATIONS ASSOCIATE Addended by: KEHINDE NATH V on: 07/11/2023 04:24 PM Modules accepted: Level of Service UNICATIONS ASSOCIATE documented in this encounter Plan of Treatment Upcoming Encounters Date Type Department Care Team (Late st Contact Info) Description 09/01/2023 11:30 AM COMMUNICATIONS ASSOCIATE Office Visit Department of Urology in [place], [place] [address] [phone] Antonia Krause APRN, C.N.P. 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 Morbid Obesity (HCC) Major Depressive Disorder Single Episode Unspecified 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 Active (HCC) Immunodeficiency Due To Conditions Classified Elsewhere (HCC) Hypothyroidism On Replacement Hypertension Secondary To Other Renal Disorders Hyperlipidemia Gastroesophageal Reflux Disease Without Esophagitis 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HCC) 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) Depression Major Recurrent Moderate (HCC) 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 [address] [place] [phone] PCP - General Internal Medicine 06/30/23 08/10/23 documented as of this encounter
--- OUTSIDE RECORDS SUMMARY | 2023-08-31 13:07 | XMS_ITS | Encounter Summary ---
Author Name Unknown Organization [facility] Address [address] [place] [address] Care Team Providers Care Assistant Public Defender Name Role Phone Dannie Davalosgumaro Kirby APRN, C.N.P., M.S.N. Primary C are Provider Encounter Details Date Type Department Care Team (Late st Contact Info) Description 06/30/2023 Orders Only Senior Services in [facility] [id number] [phone] Arlette Nath APRN, C.N.P. [address] [facility] [place] [phone] Social History Tobacco Use Types Packs/Day Years [...] st Contact Info) Description 09/01/2023 11:30 AM REPAIR ELECT[employer]OR ASSEMBLER Office Visit Department of Urology in [place], [place] [address] [place] [phone] Antonia Krause APRN, C.N.P. [address] [phone] documented as of this encounter Visit Diagnoses Not on filedocumented in this encounter Care Teams Assistant Public Defender Relationship Specialty Start Date End Date Manoj Davalos APRN, C.N.P., M.S.N. [address] [place] [phone] PCP - General Internal Medicine 06/30/23 08/10/23 documented as of this encounter
--- OUTSIDE RECORDS SUMMARY | 2023-08-31 13:07 | XMS_ITS | Encounter Summary ---
Author Name Unknown Organization [facility] Address [address] [place] [address] Care Team Providers Care Plate Mounter Name Role Phone Elsewhere, Pcp Primary Care Provider Unavailabl e Encounter Details Date Type Department Care Team (Latest Contact Info) Description 09/07/2022 11:35 AM RELATIONSHIP COUNSELOR - 09/07/2022 11:59 PM RELATIONSHIP COUNSELOR Hospital Encounter Department of Laboratory Medicine in [address] [phone] Qasim Jade M.D. [address] [phone] Immunodeficiency (HCC); High Risk Medication; Transplant Renal (HCC); Anemia Of Chronic Renal Failure Discharge Disposition: Home or Self Care Social History Tobacco Use Types Packs/Day Years Used Date Smoking Tobacco: Former Cigars Nutrition Answer Date Recorded Nutrition: EVOO Fat [...] Sig Dispensed Refills Start Date End Date albuterol 2.5 mg /3 mL nebulizer solution 2.5 mg. 0 07/16/2022 apixaban (ELIQUIS) 2.5 mg tablet Take 2.5 mg by mouth 2 (two) times a day. 0 07/16/2022 07/01/2023 ascorbic acid, vitamin C, (VITAMIN C) 500 mg tablet Take 500 mg by mouth 2 (two) times a day. 0 09/21/[address] tablet 81 mg daily. 0 07/01/202208/24 carvediloL (COREG) 25 mg tablet Take 25 mg by mouth 2 (two) times a day with meals. 0 07/16/2022 07/01/2023 cholecalciferol (VITAMIN D3) 125 mcg (5,000 Unit) capsule Take 125 mcg by mouth daily. 0 09/21/2022 escitalopram (LEXAPRO) 20 mg tablet Take 20 mg by mouth daily. 0 02/25/2022 07/11/2023 gabapentin (NEURONTIN) 300 mg capsule Take 300 mg by mouth daily. In AM 0 02/25/2022 07/01/2023 gabapentin (NEURONTIN) 300 mg capsule Take 600 mg by mouth at bedtime. 0 07/10/2022 07/01/2023 insulin aspart U-100 (NovoLOG) 100 unit/mL injection Inject under the skin. 0 09/01/2022 07/01/2023 insulin detemir U-100 (Levemir FlexPen) 100 unit/mL (3 mL) injection Inject 40 Units under the skin at bedtime. 0 07/16/2022 07/04/2023 Lactobacillus acidophilus capsule Take 1 capsule by mouth 3 (three) times a day with meals. 0 09/21/2022 levothyroxine (SYNTHROID, LEVOTHROID) 25 mcg tablet Take 25 mcg by mouth every morning before breakfast. 0 07/16/2022 07/01/2023 multivit-min/FA/lycopen/l utein (CERTAVITE SENIOR ORAL) Take 1 tablet by mouth daily. 0 04/29/2022 07/01/2023 mycophenolate (CELLCEPT) 250 mg capsule Take 750 mg by mouth every 12 (twelve) hours. 0 06/03/2016 07/01/2023 ondansetron ODT (ZOFRAN-ODT) 4 mg disintegrating tablet Dissolve 4 mg in the mouth 3 (three) times a day as needed for nausea or vomiting. 0 09/21/2022 pantoprazole (PROTONIX) 20 mg EC tablet Take 40 mg by mouth every morning before breakfast. 0 07/10/2022 07/01/2023 rosuvastatin (CRESTOR) 10 mg tablet Take 10 mg by mouth at bedtime. 0 07/10/2022 07/01/2023 sennosides-docusate sodium (Senna with Docusate Sodium) 8.6-50 mg per tablet Take 1 tablet by mouth every other day. Every other day - evening shift 0 09/21/2022 sodium phosphates (Enema) 19-7 gram/118 mL enema Insert 1 enema into the rectum daily as needed. 0 09/21/2022 tacrolimus (PROGRAF) 0.5 mg capsuleIndications:preven tion of kidney transplant rejection Take 0.5 mg by mouth 2 (two) times a day Indications: prevent kidney transplant rejection. 0 08/25/2021 07/11/2023 tacrolimus (PROGRAF) 1 mg capsule Take 1 mg by mouth at bedtime. 0 08/25/2021 07/01/2023 tamsulosin (FLOMAX) 0.4 mg 24 hr capsule Take 0.8 mg by mouth daily. 0 11/02/2021 07/01/2023 torsemide (DEMADEX) 10 mg tablet 10 mg. 0 07/16/2022 09/21/2022 torsemide (DEMADEX) 20 mg tablet Take 20 mg by mouth daily with lunch. 0 07/01/2023 torsemide (DEMADEX) 20 mg tablet Take 40 mg by mouth daily. Daily in AM 0 07/01/2023 VITAMIN A ORAL Take 8,000 Units by mouth daily. 0 09/21/2022 VITAMIN B COMPLEX ORAL Take 1 tablet by mouth daily. Vitamin B Complex - C Capsule 0 09/21/2022 ZINC ORAL Take 1 tablet by mouth daily. 0 09/21/2022 documented as of this encounter Plan of Treatment Upcoming Encounters Date Type Department Care Team (Late st Contact Info) Description 09/01/2023 11:30 AM RELATIONSHIP COUNSELOR Office Visit Department of Urology in [place], [place] [address] [place] [phone] Antonia Krause APRN, C.N.P. [address] [place] [phone] documented as of this encounter Procedures Procedure Name Priority Date/Time Associated Diagnosis Comments TACROLIMUS LEVEL, B Routine 09/07/2022 1 0:58 AM RELATIONSHIP COUNSELOR Immunodeficiency (HCC) High Risk Medication Transplant Renal (HCC) Anemia Of Chronic Renal Failure 25-HYDROXYVITAMIN D2 AND D3, S Routine 09/07/2022 10:58 AM RELATIONSHIP COUNSELOR Immunodeficiency (HCC) High Risk Medication Transplant Renal (HCC) Anemia Of Chronic Renal Failure CBC WITH DIFFERENTIAL, B Routine 09/07/2022 10:58 AM RELATIONSHIP COUNSELOR Immunodeficiency (HCC) High Risk Medication Transplant Renal (HCC) Anemia Of Chronic Renal Failure MAGNESIUM, S Routine 09/07/2022 10:58 AM RELATIONSHIP COUNSELOR Immunodeficiency (HCC) High Risk Medication Transplant Renal (HCC) Anemia Of Chronic Renal Failure BASIC METABOLIC PANEL, S/P Routine 09/07/2022 10:58 AM RELATIONSHIP COUNSELOR Immunodeficiency (HCC) High Risk Medication Transplant Renal (HCC) Anemia Of Chronic Renal Failure documented in this encounter Results * (ABNORMAL) Magnesium (09/07/2022 10:58 AM RELATIONSHIP COUNSELOR) Magnesium, P 1.5(L) 1.7 - 2.3 mg/dL 09/07/2022 1:13 PM RELATIONSHIP COUNSELOR CNFL Blood (Blood, Venous) 09/07/2022 10:58 AM RELATIONSHIP COUNSELOR 09/07/2022 12:51 PM RELATIONSHIP COUNSELOR Qasim Jade M.D. LAB BLOOD ADD-ON [facility] [address] [place] [phone], [facility] CNFL [facility] in [address] [address] * (ABNORMAL) Basic Metabolic Panel (09/07/2022 10:58 AM RELATIONSHIP COUNSELOR) Potassium, P 3.1(L) 3.6 - 5.2 mmol/L 09/07/2022 1:13 PM RELATIONSHIP COUNSELOR CNFL Sodium, P 139 135 - 145 mmol/L 09/07/2022 1:13 PM RELATIONSHIP COUNSELOR CNFL Chloride, P 104 98 - 107 mmol/L 09/07/2022 1:13 PM RELATIONSHIP COUNSELOR CNFL Bicarbonate, P 25 22 - 29 mmol/L 09/07/2022 1:13 PM RELATIONSHIP COUNSELOR CNFL Anion Gap, P 10 7 - 15 09/07/2022 1:13 PM RELATIONSHIP COUNSELOR CNFL BUN (Blood Urea Nitrogen), P 39(H) 8 - 24 mg/dL 09/07/2022 1:13 PM RELATIONSHIP COUNSELOR CNFL Creatinine 2.22(H) 0.74 - 1.35 mg/dL 09/07/2022 1:13 PM RELATIONSHIP COUNSELOR CNFL Estimated GFR (eGFR) 31(L) >=60 mL/min/BSA 09/07/2022 1:13 PM RELATIONSHIP COUNSELOR CNFL Comment: Estimated GFR calculated using the 2020 CKD_EPI creatinine equation. Calcium, Total, P 9.8 8.8 - 10.2 mg/dL 09/07/2022 1:13 PM RELATIONSHIP COUNSELOR CNFL Glucose, P 93 70 - 140 mg/dL 09/07/2022 1:13 PM RELATIONSHIP COUNSELOR CNFL Blood (Blood, Venous) 09/07/2022 10:58 AM RELATIONSHIP COUNSELOR 09/07/2022 12:51 PM RELATIONSHIP COUNSELOR Qasim Jade M.D. LAB BLOOD ADD-ON Performing Organization Address [facility]/State/ZIP Co de Phone Number [facility] [address] [place] [phone], [facility] CNFL [facility] in [address] [address] * (ABNORMAL) CBC with Differential, Blood (09/07/2022 10:58 AM RELATIONSHIP COUNSELOR) Hemoglobin 11.1(L) 13.2 - 16.6 g/dL 09/07/2022 1:25 PM RELATIONSHIP COUNSELOR CNFL Hematocrit 36.2(L) 38.3 - 48.6 % 09/07/2022 1:25 PM RELATIONSHIP COUNSELOR CNFL Erythrocytes 4.32(L) 4.35 - 5.65 x10(12)/L 09/07/2022 1:25 PM RELATIONSHIP COUNSELOR CNFL MCV 83.8 78.2 - 97.9 fL 09/07/2022 1:25 PM RELATIONSHIP COUNSELOR CNFL RBC Distrib Width 17.2(H) 11.8 - 14.5 % 09/07/2022 1:25 PM RELATIONSHIP COUNSELOR CNFL Platelet Count 110(L) 135 - 317 x10(9)/L 09/07/2022 1:25 PM RELATIONSHIP COUNSELOR CNFL Leukocytes 4.3 3.4 - 9.6 x10(9)/L 09/07/2022 1:25 PM RELATIONSHIP COUNSELOR CNFL Neutrophils 2.50 1.56 - 6.45 x10(9)/L 09/07/2022 1:25 PM RELATIONSHIP COUNSELOR CNFL Lymphocytes 1.03 0.95 - 3.07 x10(9)/L 09/07/2022 1:25 PM RELATIONSHIP COUNSELOR CNFL Monocytes 0.47 0.26 - 0.81 x10(9)/L 09/07/2022 1:25 PM RELATIONSHIP COUNSELOR CNFL Eosinophils 0.32 0.03 - 0.48 x10(9)/L 09/07/2022 1:25 PM RELATIONSHIP COUNSELOR CNFL Basophils <0.04 0.01 - 0.08 x10(9)/L 09/07/2022 1:25 PM RELATIONSHIP COUNSELOR CNFL Blood (Blood, Venous) 09/07/2022 10:58 AM RELATIONSHIP COUNSELOR 09/07/2022 12:51 PM RELATIONSHIP COUNSELOR Qasim Jade M.D. LAB BLOOD ADD-ON [facility] [address] [place] [phone], [facility] CNFL [facility] in [address] [address] * Tacrolimus, B (09/07/2022 10:58 AM RELATIONSHIP COUNSELOR) [facility] Tacrolimus, B 5.2 5.0-15.0 (Trough) ng/mL 09/08/2022 11:21 AM RELATIONSHIP COUNSELOR [facility] Comment: ----ADDITIONAL INFORMATION---- Target steady-state trough concentrations vary depending on the type of transplant, concomitant immunosuppression, clinical/institutional protocols, and time post-transplant. Results should be interpreted in conjunction with this clinical information and any physical signs/symptoms of rejection/toxicity. Testing performed by Liquid Chromatography-Tandem Mass Spectrometry (LC-MS/MS). This test was developed and its performance characteristics determined by [facility] in a manner consistent with CLIA requirements. This test has not been cleared or approved by the U.S. Food and Drug Administration. Blood (Blood, Venous) 09/07/2022 10:58 AM RELATIONSHIP COUNSELOR 09/08/2022 7:33 AM RELATIONSHIP COUNSELOR Qasim Jade M.D. LAB BLOOD NON ADD-O N Performing Organization Address [facility]/ZIP Co de Phone Number [facility] [address] [place] [address] [facility] [address] [place] [address] * 25-Hydroxyvitamin D2 and D3 (09/07/2022 10:58 AM RELATIONSHIP COUNSELOR) [facility] 25-Hydroxy D2 <4.0 ng/mL 09/10/2022 1:00 PM RELATIONSHIP COUNSELOR [facility] 25-Hydroxy D3 29 ng/mL 09/10/2022 1:00 PM RELATIONSHIP COUNSELOR [facility] 25-Hydroxy D Total 29 ng/mL 2022 1:00 PM RELATIONSHIP COUNSELOR [facility] Comment: ----REFERENCE VALUE---- 25-HYDROXY D TOTAL (D2+D3) Optimum levels in the healthy population are 20-50, patients with bone disease may benefit from higher levels within this range. ----ADDITIONAL INFORMATION---- This test was developed and its performance characteristics determined by [facility] in a manner consistent with CLIA requirements. This test has not been cleared or approved by the U.S. Food and Drug Administration. Blood (Blood, Venous) 09/07/2022 10:58 AM RELATIONSHIP COUNSELOR 09/08/2022 7:37 AM RELATIONSHIP COUNSELOR Qasim Jade M.D. LAB BLOOD ADD-ON Performing Organization Address City/[facility]/ZIP Co de Phone Number [facility] [address] [place] [address] [facility] [address] [place] [address] documented in this encounter Visit Diagnoses Diagnosis Immunodeficiency (HCC) High Risk Medication Transplant Renal (HCC) Anemia Of Chronic Renal Failure documented in this encounter Additional Health Concerns Infection Onset Date Last Indicated Resolved Time MRSA Comment:+MRSA-urine (straight cath): 08/03/22 08/03/2022 08/03/2022 11/01/2022 4:45 AM C DT documented as of this encounter Care Teams Plate Mounter Relationship Specialty Start Date End Date Elsewhere, Pcp PCP - General Internal Medicine 08/12/22 06/29/23 documented as of this encounter
--- OUTSIDE RECORDS SUMMARY | 2023-08-31 13:07 | XMS_ITS | Encounter Summary ---
Author Name Unknown Organization [facility] Address [address] [place] [address] Care Team Providers Care Nurse Orthopaedic Name Role Phone Elsewhere, Pcp Primary Care Provider Unavailabl e Reason for Referral * Outpatient (Routine) - Closed Specialty Diagnoses / Procedures Referred By Armaan howell Referred To Contact Urology Antonia Krause APRN, C.N.P. [address] [place] [phone] [facility] Referral ID Status Reason Start Date Expiration Date Visits Re quested Visits Authorized [id number] Closed 09/21/2022 09/20/2025 1 1 Scheduling Instructions 2-4 weeks ER IN Reason for Visit * Reason Comments Consult Urinary Incontinence Urinary Tract Infection * Appointment Request (Routine) - Closed Specialty Diagnoses / Procedures Referred By Armaan t Referred To Contact Urology Referral ID Status Reason Start Date Expiration Date Visits Re quested Visits Authorized [id number] Closed 09/03/2022 09/03/2023 1 Encounter Details Date Type Department Care Team (Latest Contact Info) Description 09/21/2022 1:30 PM TAILER IN Comprehensive Visit Department of Urology in [place], [place] [address] [place] [phone] Antonia Krause APRN, C.N.P. [address], [place] [phone] Cystitis Recurrent (Primary Dx); Transplant Renal (HCC); Apnea Sleep Obstructive; Nocturia Social History Tobacco Use Types Packs/Day Years [...] on file documented as of this encounter Consult Notes * Antonia Krause APRN, C.N.P. - 09/21/2022 1:30 PM CST SUBJECTIVE REQUESTING PROVIDER No ref. provider found REASON FOR CONSULT Urinary symptoms HISTORY OF PRESENT ILLNESS Latrell is a pleasant 72 year old male here today with his for consultation for recurrent UTI in renal transplant patient. 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 His transplanted kidney is in the right lower quadrant, bilateral atrophied venetie ira kidneys are present. He started having symptomatic urinarytract infections in December and was hospitalized several times in [facility], and [facility]. He did have Gibbs catheter placed in May due to urinary incontinence and on healed pressure ulcers. Now that his sacral ulcers are healed, Gibbs catheter is no longer present. Is most bothered by his nighttime urinary symptoms, he gets up 4 times in the night to urinate. He does snore but does not wear CPAP. He states that with each of his infections his urinary symptoms with infection has completely resolved. He typically drinks about 64 oz of water each day and some sugar free ice tea. He states that he only voids 1 or 2 times during the day even though he takes torsemide in the morning. He takes tamsulosin 0.4 mg capsule twice daily. Lower Urinary Symptoms Lower Urinary Sx: nocturia (+) # of UTI's in past year: 3 or more The following portions of the patient's history were reviewed and updated as appropriate: allergies, current medications, family history, medical history, social history, surgical history, and problem list. REVIEW OF SYSTEMS Gastrointestinal: - Negative for constipation and diarrhea. Genitourinary: Positive for frequent urination. 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) Edema Failure Renal Acute (Acute Kidney Injury) (HCC) 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HCC) Gout Hyperlipidemia Hyperparathyroidism Renal Secondary (HCC) Hypertension Secondary To Other Renal Disorders Immunodeficiency (HCC) Infection Bacterial Hypersomnia Major Depressive Disorder Single Episode Unspecified Malaise Malignant Neoplasm Of Skin Malignant Neoplasm Of Skin Basal Cell Carcinoma Depression Morbid Obesity (HCC) Nodule Thyroid Nontoxic Non-Pressure Chronic Ulcer Of Buttock With Unspecified Severity (HCC) Non-Pressure Chronic Ulcer Of Unspecified Part Of Left Lower Leg With Unspecified Severity (HCC) Osteomyelitis Ankle Foot Acute (HCC) Other Dyspnea Pancreas Disease Polyneuropathy Sleep Disorder Syncope And Collapse Anemia Iron Deficiency Transplant Renal (HCC) Ulcer Buttock Decubitus Stage 2 (HCC) Unspecified Abnormalities Of Gait And Mobility Pneumonia Due To COVID-19 Cataract Acute Diastolic (Congestive) Heart Failure (HCC) Charcots Joint Left 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 No past surgical history on file. No family history on file. Allergies Allergen Reactions Lisinopril Cough Current Outpatient Medications on File Prior to Visit Medication Sig Dispense Refill apixaban (ELIQUIS) 2.5 mg tablet Take 2.5 mg by mouth 2 (two) times a day. carvediloL (COREG) 25 mg tablet Take 25 mg by mouth 2 (two) times a day with meals. escitalopram (LEXAPRO) 20 mg tablet Take 20 mg by mouth daily. gabapentin (NEURONTIN) 300 mg capsule Take 300 mg by mouth daily. In AM gabapentin (NEURONTIN) 300 mg capsule Take 600 mg by mouth at bedtime. insulin aspart U-100 (NovoLOG) 100 unit/mL injection Inject under the skin. insulin detemir U-100 (Levemir FlexPen) 100 unit/mL (3 mL) injection Inject 40 Units under the skinat bedtime. levothyroxine (SYNTHROID, LEVOTHROID) 25 mcg tablet Take 25 mcg by mouth every morning before breakfast. multivit-min/FA/lycopen/lutein (CERTAVITE SENIOR ORAL) 1 tablet. mycophenolate (CELLCEPT) 250 mg capsule Take 750 mg by mouth every 12 (twelve) hours. pantoprazole (PROTONIX) 20 mg EC tablet Take 40 mg by mouth every morning before breakfast. rosuvastatin (CRESTOR) 10 mg tablet Take 10 mg by mouth at bedtime. tacrolimus (PROGRAF) 0.5 mg capsule Take 0.5 mg by mouth daily. Every morning tacrolimus (PROGRAF) 1 mg capsule Take 1 mg by mouth at bedtime. tamsulosin (FLOMAX) 0.4 mg 24 hr capsule Take 0.8 mg by mouth daily. torsemide (DEMADEX) 20 mg tablet Take 20 mg by mouth daily with lunch. torsemide (DEMADEX) 20 mg tablet Take 40 mg by mouth daily. Daily in AM ciprofloxacin (CIPRO) 500 mg tablet Take 500 mg by mouth daily. insulin lispro 100 unit/mL injection Inject 10-15 Units under the skin. potassium chloride (K-TAB) 20 mEq CR tablet Take 20 mEq by mouth 2 (two) times a day. pregabalin (LYRICA) 100 mg capsule Take 100 mg by mouth 2 (two) times a day. Will start once gabapentin is finished [DISCONTINUED] albuterol 2.5 mg /3 mL nebulizer solution 2.5 mg. [DISCONTINUED] ascorbic acid, vitamin C, (VITAMIN C) 500 mg tablet Take 500 mg by mouth 2 (two) times a day. [DISCONTINUED] aspirin [address] tablet 81 mg daily. [DISCONTINUED] cholecalciferol (VITAMIN D3) 125 mcg (5,000 Unit) capsule Take 125 mcg by mouth daily. [DISCONTINUED] Lactobacillus acidophilus capsule Take 1 capsule by mouth 3 (three) times a day withmeals. [DISCONTINUED] ondansetron ODT (ZOFRAN-ODT) 4 mg disintegrating tablet Dissolve 4 mg in the mouth 3(three) times a day as needed for nausea or vomiting. [DISCONTINUED] sennosides-docusate sodium (Senna with Docusate Sodium) 8.6-50 mg per tablet Take 1 tablet by mouth every other day. Every other day - evening shift [DISCONTINUED] sodium phosphates (Enema) 19-7 gram/118 mL enema Insert 1 enema into the rectum daily as needed. [DISCONTINUED] torsemide (DEMADEX) 10 mg tablet 10 mg. [DISCONTINUED] VITAMIN A ORAL Take 8,000 Units by mouth daily. [DISCONTINUED] VITAMIN B COMPLEX ORAL Take 1 tablet by mouth daily. Vitamin B Complex - C Capsule [DISCONTINUED] ZINC ORAL Take 1 tablet by mouth daily. No current facility-administered medications on file prior to visit. Social History Tobacco Use Smoking status: Former Types: Cigars Smokeless tobacco: Never Vaping Use Vaping Use: never used OBJECTIVE There were no vitals filed for this visit. PHYSICAL EXAM Vitals and nursing note reviewed. General: Well developed, well nourished, well groomed male in no acute distress. Neurological: Alert, cooperative, oriented x3. Appropriate mood and affect. Head: Normal appearance, no abnormalities, normocephalic. Abdomen: Soft, non-tender, non-distended, obese : Skin color and turgor appropriate for region. No ulcers, erythema, rashes, or pigmented lesionsnoted. PROSTATE: Perianal area intact without lesions or visible hemorrhoids. No fissures or fistulas. Good sphincter tone, no masses. Prostate is symmetrical, smooth, non-enlarged, non-tender and without nodules. Seminal vesicles are non- palpable. Approximate size is 25-30 grams. Extremities: Warm, with RLE edema, left below knee amputation. DIAGNOSTIC Uroflow is performed utilizing calibrated electronic equipment. Patient voided 232 mL over 26 seconds. Peak flow 14 mL/sec, average flow 8 mL/sec. Postvoid residual by bladder scan 55 mL. Normal voiding curve. ASSESSMENT / PLAN 1. Cystitis Recurrent 2. Transplant Renal (HCC) We discussed options for prevention of urinary tract infection. We discussed importance of drinkingadequate amounts of fluid, emptying bladder well, voiding regularly, at least every 2-4 hours when awake. We discussed possibility of daily antibiotics which we would like to avoid if possible, Hiprex twice daily with Vitamin C would require clearance from transplant trailer truck driver. We discussed importance of cystoscopy to assess for abnormalities of the prostate and/or bladder that could be causing recurrent infections. He would like to avoid cystoscopy at this time. 3. Apnea Sleep Obstructive 4. Nocturia We discussed that his prostate is not enlarged on exam, prostate is not likely cause of nocturia. We discussed importance of use of c-pap and how this can help with nocturia. We also discussed that with the amount of torsemide that he is prescribed, he should be urinating more often during the day.Bladder diaries are provided, he is to fill out at least two days of fluid intake with voided amounts of urine. They will return to clinic in 2-4 weeks with completed bladder diaries. At that time we again discuss going forward with cystoscopy. All questions answered today. Signed by: Antonia Krause APRN, C.N.P. 09/21/2022 1:45 PM TAILER IN ER IN documented in this encounter Plan of Treatment Upcoming Encounters Date Type Department Care Team (Late st Contact Info) Description 09/01/2023 11:30 AM TAILER IN Office Visit Department of Urology in [place], [place] [address] [phone] Antonia Krause APRN, C.N.P. [address] [phone] Scheduled Referrals Name Type Priority Associated Diagnoses Orde r Schedule Urology office visit (clinic) Outpatient Referral Routine Expected: 10/19/2022 (Approximate), Expires: 12/20/2023 documented as of this encounter Visit Diagnoses Diagnosis Cystitis Recurrent- Primary Transplant Renal (HCC) Apnea Sleep Obstructive Nocturia documented in this encounter Additional Health Concerns Infection Onset Date Last Indicated Resolved Time MRSA Comment:+MRSA-urine (straight cath): 08/03/22 08/03/2022 08/03/2022 11/01/2022 4:45 AM C DT documented as of this encounter Care Teams Nurse Orthopaedic Relationship Specialty Start Date End Date Elsewhere, Pcp PCP - General Internal Medicine 08/12/22 06/29/23 documented as of this encounter
--- OUTSIDE RECORDS SUMMARY | 2023-08-31 13:08 | XMS_ITS | Clinical Summary ---
Author Name Unknown Organization [facility] Address [place], [place] [address] Care Team Providers Care Access Director Name Role Phone Momo Forbes MD Primary Care Provider + [facility] Unavailable [phone] Allergies Active Allergy Reactions Criticality Noted Date Comments Lisinopril Cough 08/17/2023 Medications Medication Sig Dispensed Refills Start Date End Date Status mycophenolate (CELLCEPT) 250 mg capsuleIndications: -donor kidney transplant recipient Take 3 capsules by mouth every 12 hours. 0 6 Active rosuvastatin (CRESTOR) 10 mg tabletIndications:H yperlipidemia, unspecified hyperlipidemia type TAKE ONE TABLET BY MOUTH EVERY DAY AT BEDTIME 90 tablet 1 8 Active escitalopram oxalate (LEXAPRO) 20 mg tablet Take 20 mg by mouth once daily. 0 Active tacrolimus (PROGRAF) 0.5 mg capsule Take 0.5 mg by mouth two times daily. 0 Active tamsulosin (FLOMAX) 0.4 mg capsule Take 0.4 mg by mouth two times daily. 0 2 Active Levemir FlexTouch U100 Insulin 100 unit/mL (3 mL) pen Inject 40 units subcutaneous before bedtime. 0 Active levothyroxine (SYNTHROID) 88 mcg tablet Take 88 mcg by mouth once daily. 0 3 Active pantoprazole (PROTONIX) 40 mg delayed-release tablet Take 40 mg by mouth once daily. 0 Active pregabalin (LYRICA) 150 mg capsule Take 150 mg by mouth two times daily. 0 3 Active torsemide (DEMADEX) 20 mg tablet Take 40 mg (2 tab) by mouth every morning and 20 mg (1 tab) at 12:00 noon. 0 Active zolpidem (AMBIEN) 10 mg tablet Take 10 mg by mouth once daily if needed for Sleep. 0 3 Active Eliquis 2.5 mg tabletIndications:C hronic atrial fibrillation (HC) Take 1 Tablet (2.5 mg) by mouth two times daily. 60 Tablet 0 3 Active insulin lispro (HUMALOG; ADMELOG) 100 unit/mL injectionIndication s:Insulin dependent type 2 diabetes mellitus (HC) HIGH SCALE CORRECTIVE DOSES For BG less than 70, refer to Hypoglycemia Treatment Protocol For BG 70 - 149, no corrective insulin, administer full dose of prandial insulin if ordered For BG 150 - 199, give 3 units For BG 200 - 249, give 6 units For BG 250 - 299, give 9 units For BG 300 - 349, give 12 units For BG 350 - 399, give 15 units For BG 400 or greater, give 18 units and notify MD NOTE: Do not administer corrective dose for PRN, post-prandial or nocturnal glucose meter checks unless otherwise ordered. 10 mL 0 3 Active pregabalin (LYRICA) 50 mg capsuleIndications: Neuropathy Take 1 Capsule (50 mg) by mouth three times daily. 30 Capsule 0 3 Active Additional Information Patient taking differently:50 mg OralBID, Reported on 08/17/2023 LORazepam (ATIVAN) 1 mg tablet Take 1 mg by mouth at bedtime if needed. 0 3 Active carvediloL (COREG) 6.25 mg tablet Take 6.25 mg by mouth two times daily with meals. 0 Active durable medical equipment (DME)Indications:Ab normality of gait,Diabetes mellitus with neurological manifestations, uncontrolled,Status post below knee amputation, unspecified laterality (HC),Type 2 diabetes mellitus with diabetic nephropathy, with long-term current use of insulin (HC) Custom KASIGLUK boot to control charcot midfoot instability 1 Each 0 1 08/17/20 23 Discontinu ed(*Patien t states no longer taking) durable medical equipment (DME)Indications:Di abetic foot (HC),Peripheral polyneuropathy,Jacqueline cot's joint of right foot Extra depth diabetic shoes, 3 pair tri layer accommodative inserts 1 Each 0 1 08/17/20 Discontinu ed(*Patien t states no longer taking) durable medical equipment (DME)Indications:Ul cer of right foot, limited to breakdown of skin (HC) Modify shoe/insert so that there is not pressure at the ulceration sites. 1 Each 0 1 08/17/20 Discontinu ed(*Patien t states no longer taking) durable medical equipment (DME)Indications:Di abetic foot (HC),Peripheral polyneuropathy,Jacqueline cot's joint of right foot Extra depth diabetic shoes, 3 pair tri layer accommodative inserts 1 Each 0 2 08/17/20 Discontinu ed(*Patien t states no longer taking) potassium chloride (K-TAB) 20 mEq extended-release tablet Take 20 mEq by mouth two times daily with meals. 0 08/18/20 Discontinu ed(*Patien t states no longer taking) NIFEdipine (PROCARDIA XL) 30 mg extended-release tabletIndications:H ypertension Take 2 Tablets (60 mg) by mouth once daily before a meal. 30 Tablet 0 3 08/18/20 Discontinu ed(*Patien t states no longer taking) pregabalin (LYRICA) 100 mg capsuleIndications: Neuropathy Take 1 Capsule (100 mg) by mouth two times daily. 150 Capsule 0 3 08/17/20 Discontinu ed(*Patien t states no longer taking) Active Problems Problem Noted Date Diagnosed Date Acute cystitis with hematuria 06/26/2023 Weakness 06/26/2023 MICHELLE (acute kidney injury) 06/26/2023 Symptomatic bradycardia 06/23/2023 TIA (transient ischemic attack) 06/22/2023 CKD (chronic kidney disease) stage 4, GFR 15-29 ml/min 06/22/2023 Insulin dependent type 2 diabetes mellitus 06/22 Morbid obesity 06/15/2022 Hypertension 06/15/2022 Renal transplant, status post 06/15/2022 Pancreatic lesion 06/15/2022 Thyroid nodule 06/15/2022 History of renal transplant 06/02/2022 Acute kidney injury 01/11/2022 Pressure injury of buttock, stage 2 01/11/2022 Permanent atrial fibrillation 01/11/2022 Mood disorder 01/11/2022 Malignant neoplasm of skin 03/24/2021 Ulcer of right foot with fat layer exposed 11/12 Diabetic foot infection 09/18/2020 Foot abscess 09/18/2020 Morbid obesity 06/16/2016 Major depressive disorder, recurrent episode, mo derate 01/28/2015 Aftercare following organ transplant 02/05/2014 Immunosuppression 02/05/2014 Atrial fibrillation 02/04/2014 -donor kidney transplant recipient 02/02 Tubular adenoma of colon 01/01/2014 Hypertension 09/26/2012 Insomnia 09/26/2012 History of tobacco use 12/02/2011 Malaise and fatigue 12/02/2011 Peripheral neuropathy 12/02/2011 Vitamin D deficiency 11/20/2011 ACP (advance care planning) 08/30/2011 Overview: Patient has identified Health Care Agent(s): No Add Health Care Agents: No Patient has Advance Care Plan Documents (Health Care Directive, POLST): no Patient has identified Specific Treatment Preferences: Yes Specific Treatment Preferences: a.) Code Status: CPR/Attempt Resuscitation b.) Goals of Treatment: iii. Provide Life sustaining treatment. Intubate, cardiovert, and provide medically necessary care to sustain life. c.) Interventions and Treatments: i. Antibiotics: - Use Aggressive antibiotic treatment Thrombocytopenia, unspecified 08/30/2011 Hyperlipidemia 11/14/2010 Gout 06/09/2010 Thyroid nodule 03/02/2010 Hyperparathyroidism, secondary renal 01/27/2010 Anemia associated with chronic renal failure 03/2010 Iron deficiency anemia 08/19/2009 Proliferative diabetic retinopathy(362.02) 10/06 Erectile Dysfunction 07/30/2006 Lower limb amputation, below knee 12/22/2005 CHARCOT FOOT 12/14/2005 PERIPHERAL NEUROPATHY 12/14/2005 Acute osteomyelitis of ankle and foot 12/14/2005 Overview: L foot--left BKA on 12/17/05 Resolved Problems Problem Noted Date Diagnosed Date Resolved Date Pneumonia due to COVID-19 virus 06/15/2022 06/22/2023 Acute hypoxemic respiratory failure due to COVID-19 06/15/2022 06/22/2023 Insulin dependent diabetes mellitus type IA 06/15/2022 06/22/2023 CKD (chronic kidney disease) 06/15/2022 06/22/2023 Atrial fibrillation 06/15/2022 06/22/20 23 Pneumonia due to COVID-19 virus 06/02/2022 06/22/2023 Acute respiratory distress 06/02/2022 1 08/22/2022 Pneumonia of right lower lob e due to infectious organism 06/02/2022 06/22/2023 Urinary tract infection 01/11/2022 11/0 08/2022 Syncope and collapse 03/08/2019 023 CKD stage 3 due to type 2 diabetes mellitus 11/03/2016 05/31/2017 Type 2 diabetes mellitus wit h diabetic nephropathy 01/28/2015 01/28/2015 Type 2 diabetes mellitus wit h diabetic nephropathy 01/22/2015 06/22/2023 HTN, kidney transplant related 12/02/2011 06/22/2023 Type 2 diabetes mellitus 10/10/201110/2014 Type II or unspecified type diabetes mellitus with neurological manifestations, uncontrolled(250.62) 09/01/2011 10/17/2013 CKD (chronic kidney disease) stage 5, GFR less than 15 ml/min 08/30/2011 10/17/2013 End-stage renal disease needing dialysis 08/30/2011 02/12/2014 Anemia, unspecified 08/30/2011 10/17/19 14 Knee pain, right 05/27/2010 06/09/2010 Overview: severe Chest pressure 05/27/2010 06/09/2010 CKD (chronic kidney disease) stage 4, GFR 15-29 ml/min 05/27/2010 08/30/2011 Diabetes mellitus type II 05/27/2010 Overview: a system change updated this record. This will not affect patient care or billing. This comment can be deleted. Amputation stump infection 05/27/2010 1 Gait instability 05/27/2010 06/09/2010 Major depression, recurrent 04/21/2010 01/28/2015 CKD (chronic kidney disease) stage 3, GFR 30-59 ml/min 03/05/2010 06/09/2010 CKD (chronic kidney disease) stage 4, GFR 15-29 ml/min 05/31/2009 03/05/2010 Depressive disorder, not elsewhere classified 10/06/19 07 05/15/2008 Overview: Unwilling to take meds. FOOT ULCER 12/14/2005 07/30/2006 Unspecified essential hypertension 12/14/2005 10/17/2013 Anemia, unspecified 12/14/2005 07/30/20 06 RENAL INSUFFICIENCY 12/14/2005 05/31/20 09 STAPH AUREUS BACTEREMIA 12/14/200504/2006 Encounters Date Type Department Care Team Description 08/31/[address] [place] [address] Dionicio Callahan MD Results 08/24/2023 10:15 AM [facility]ARAGUS CUTTER Anesthesia Event [facility] [address] [place] [address] Kendell Ontiveros III, MD Fields, Virgilio Chang DO 08/24/2023 10:02 AM [facility]ARAGUS CUTTER - 08/24/2023 11:06 AM [facility]ARAGUS CUTTER Surgery [facility] [address] [place] [address] Ebenezer Sanchez MD CYSTOSCOPY DILATION URETHRA 08/24/2023 8:34 AM ASPARAGUS CUTTER - 08/24/2023 12:30 PM [facility]ARAGUS CUTTER Hospital Encounter [facility] [address] [place] [address] Ebenezer Sanchez MD Discharge Disposition: Home Self Care 08/24/2023 Travel 08/11/2023 9:00 AM ASPARAGUS CUTTER Ancillary Procedure [facility] [address] [place] [address] 08/02/[address] [place] [address] Dionicio Callahan MD Follow Up 07/29/2023 11:00 AM [facility]ARAGUS CUTTER Office Visit [facility] [address] [facility] [place] [place] [address] Dionicio Callahan MD 07/03/2023 Lab Requisition [facility] [address] [place] [address] Victorina Valerio MD 06/30/2023 Lab Requisition [facility] [address] [place] [address] Victorina Valerio MD 06/29/2023 Orders Only [facility] [address] [place] [address] Sloan Carlos, MADALYN <No scans attached> 06/29/2023 Orders Only [facility] [address] [place] [address] Sloan Carlos, LUNCH TRUCK OPERATOR <No scans attached> 06/27/2023 Home Care Visit [facility] [address] [place] [address] Henrique Little, PT NOT TAKEN UNDER HOME CARE 06/26/2023 1:27 PM [facility]ARAGUS CUTTER - 06/29/2023 11:10 AM [facility]ARAGUS CUTTER Hospital Encounter [facility] [address] [place] [address] Radha Francois DO Beardsley, Jonathan Philip, Nadiya Mike MD Urinary tract infection without hematuria, site unspecified (Primary Dx); Weakness; Acute renal failure superimposed on chronic kidney disease, unspecified acute renal failure type, unspecified CKD stage (HC); Insulin dependent type 2 diabetes mellitus (HC); Multifocal motor neuropathy (HC); MICHELLE (acute kidney injury) (HC) [facility]position[facility] 06/26/2023 Travel 06/26/2023 Home Care Visit [facility] [address] [place] [address] Henrique Little, PT CARE COORDINATION 06/24/2023 Travel 06/23/2023 8:30 AM CDT Office Visit [facility] [address] [facility] [address] [place] [address] Dionicio Callahan MD 06/22/2023 2:30 PM CDT - 06/24/2023 5:10 PM CDT Hospital Encounter [facility] [address] [place] [address] Gema Valdovinos MD Estharabadi, Navid, DO Elsenheimer Plutt, Megan Maureen, DO Weaver, Cielo Palomino, MADALYN Carlos, Sloan Mann, MADALYN Bullard, Nadiya Moran MD Symptomatic bradycardia (Primary Dx); TIA (transient ischemic attack); Chronic atrial fibrillation (HC); Morbid obesity (HC); Nocturnal hypoxia; Hypertension; Peripheral polyneuropathy; Permanent atrial fibrillation (HC) Discharge Disposition: Home Health 06/22/2023 Travel from Last 3 Months Immunizations Name Administration Dates Next Due Influenza Virus, Unspecified 05/29/2020,05/20/20 09 Influenza, High-dose Inactivated 10/09/2019,07/22 Influenza, High-dose Quadriv alent Inactivated 09/22/2021,07/30/2021 Influenza, IIV3 (Age >=3 years) 07/12/20 17,06/05/2013,05/17/2012,2010,05/15/2010,05/20/2009 Influenza, IIV4 05/29/2020,08/12/2015,05/24/2014 Influenza, Inactivated IIV3 (Age 65+ Years) Preserv Free 06/26/2018,05/30/2017 Pneumococcal Poly,23-Valent (Pneumovax) 05/05/2011 Pneumococcal conj 13-Valent (Prevnar 13) 03/17/2016 Td (Age >=7 Years) 01/12/2019 Td, Preservative Free (age > = 7 Years) 01/12/2019 Family History Medical History Relation Name Comments Heart Disease Father Other Mother Parkinson's, Al zheimers Relation Name Status Comments Brother Alive Good health Father CHF, ASCVD Mother (Age 70) Alzheimers , Parkinsons Social History Tobacco Use Types Packs/Day Years Used Date Smoking Tobacco: Former Cigars Passive Smoke Exposure: Past Smokeless Tobacco: Never Tobacco Cessation:Counseling Given: No Alcohol Use Standard Drinks/Week Comments No 0 (1 standard drink = 0.6 oz pur e alcohol) PHQ-2 Answer Date Recorded PHQ-2 Score 1 10/21/2018 Social Connections Answer Date Recorded Frequency of Communication with Friends and Fami ly 0 06/26/2023 Financial Resource Strain Answer Date R ecorded Difficulty of Paying Living Expenses 3 06/22/2023 Difficulty of Paying Living Expenses Not on file 06/22/2023 Food Insecurity Answer Date Recorded Worried About Running Out of Food in the Last Ye ar 1 06/22/2023 Transportation Needs Answer Date Record ed Lack of Transportation (Medical) 1 06/22/2023 Housing Stability Answer Date Recorded Unable to Pay for Housing in the Last Year 1 06/22/2023 Sex and Gender Information Value Date Recorded Sex Assigned at Not on file Gender Identity Not on file Sexual Orientation Not on file Obstetrics History Last Filed Vital Signs Vital Sign Reading Time Taken Comments Blood Pressure 168/95 08/24/2023 12:20 PM [facility]ARAGUS CUTTER Pulse 62 08/24/2023 12:20 PM [facility]ARAGUS CUTTER Temperature 36.7 ??C (98 ??F) 08/24/2023 11: 35 AM [facility]ARAGUS CUTTER Respiratory Rate 18 08/24/2023 12:2 0 PM [facility] C[facility]TER Oxygen Saturation 98% 08/24/2023 12: 20 PM [facility]ARAGUS CUTTER Inhaled Oxygen Concentration - - Weight 138.5 kg (305 lb 6.4 oz) 08/24/2023 8:57 AM [facility]ARAGUS CUTTER Height 182.9 cm (6') 06/26/2023 1:29 PM [facility]ARAGUS CUTTER Body Mass Index 41.42 06/26/2023 1:29 PM [facility]ARAGUS CUTTER Plan of Treatment Upcoming Encounters Date Type Department Care Team (Late st Contact Info) Description 09/29/2023 10:00 AM ASPARAGUS CUTTER Office Visit [facility] [address] [facility] [address] [place] [address] Aleksandr Anguiano MD [address] [facility] [address] [place] [address] 10/04/2023 3:30 PM [facility]ARAGUS CUTTER Office Visit [facility] [address] [place] [id number] [place] [phone] Jose Aj MD [address] [place] [address] [place], [place] [id number] Health Maintenance Due Date Last Done Comments Tdap 1961 Zoster (shingles) series for age 50+ (1 of 2) 1969 Medicare Wellness for age 65+ 2015 Pneumococcal series for age 65+ (3 of 3 - PPSV23 or PCV20) 05/12/2016 03/17/2016, 05/05/2011 Depression screening for age 12+ 06/26/2019 06/26/20 18, 03/17/2016 Colonoscopy through age 75 03/20/202003/20, 03/20/2015, 03/17/2012, Additional history exists BMI (ht and wt on same day) for age 18+ 01/05/2023 01/05/2022, 10/06/2021, 01/12/2019, Additional history exists COVID-19 vaccine series ( season) 2023 09/22/2021, 11/18/2020, 10/21/2020 Influenza for age 65+ 04/22/2023 09/22/2021 , 07/30/2021, 05/29/2020, Additional history exists Lipids for age 45-75 06/23/2028 06/23/2023, 09/19/2020, 05/15/2018, Additional history exists Tetanus booster 01/12/2029 01/12/2019, 12/21, 08/11/2006 Hepatitis C screening for ag e 18-79 Completed 07/29/2014, 12/17/2005 AAA screening age 65-74 Completed 09/17/2020 Goals Goal Patient Goal Type Associated Problems Recent Progress Patient-Stated? Author BLOOD PRESSURE - MAINTAINS BP less than 140/90 Blood Pressure Momo Bang MD Medical Devices Implanted Type Area Supervisor Contact Lens Device Identifier Shelf Expiration Date Model / Serial / Lot Drsg Wound 4x5in Matrix Bilayer Implanted:Qty: 1 on 09/23/2020 by Araceli Amaro DPM at [facility] Right: Foot 08/21/2020 [id number] / / [id number] Description:DRSG WOUND 4X5IN MATRIX BILAYER Procedures Procedure Name Priority Date/Time Associated Diagnosis Comments GLUCOSE METER Routine 08/24/2023 11:10 AM [facility]ARAGUS CUTTER SUPRAGLOTTIC-LMA Routine 08/24/2023 10:2 7 AM [facility]ARAGUS CUTTER CYSTOSCOPY DILATION URETHRA 08/24/2023 10:15 AM ASPARAGUS CUTTER same Case Notes MRSAType 1 DMPatient would like early in the morning Special Needs [id number] MRSA/SA PCR Timed 08/24/2023 9:00 AM ASPARAGUS CUTTER NM CARDIAC MPI STRESS TEST Routine 08/11/2023 1:13 PM [facility]ARAGUS CUTTER Chest pain, unspecified type PLATELET ESTIMATE Routine 07/04/2023 6:3 3 AM ASPARAGUS CUTTER Acute cystitis with hematuria CBC WITH AUTO DIFFERENTIAL Routine 07/04/2023 6:33 AM ASPARAGUS CUTTER Acute cystitis with hematuria COMP METABOLIC PANEL Routine 07/04/2023 6:33 AM ASPARAGUS CUTTER Acute cystitis with hematuria CBC WITH AUTO DIFFERENTIAL Routine 07/04/2023 6:33 AM ASPARAGUS CUTTER Acute cystitis with hematuria AEROBIC BACTERIAL CULTURE, STAIN Routine 06/30/2023 12:15 PM [facility]ARAGUS CUTTER Pressure ulcer of right ankle, unstageable (HC) GLUCOSE METER Routine 06/29/2023 8:10 AM [facility]ARAGUS CUTTER CREATININE Early AM 06/29/2023 5:50 AM [facility]ARAGUS CUTTER SODIUM Early AM 06/29/2023 5:50 AM ASPARAGUS CUTTER POTASSIUM Early AM 06/29/2023 5:50 AM ASPARAGUS CUTTER XR CHEST 1 VIEW PORTABLE STAT 06/28/2023 11:37 PM ASPARAGUS CUTTER XR CHEST 1 VIEW PORTABLE STAT 06/28/2023 11:37 PM ASPARAGUS CUTTER GLUCOSE METER Routine 06/28/2023 9:57 PM ASPARAGUS CUTTER GLUCOSE METER Routine 06/28/2023 5:05 PM ASPARAGUS CUTTER GLUCOSE METER Routine 06/28/2023 11:35 AM ASPARAGUS CUTTER SCAN-CARDIAC STRIP 06/28/2023 8: 18 AM ASPARAGUS CUTTER GLUCOSE METER Routine 06/28/2023 7:46 AM ASPARAGUS CUTTER ALBUMIN Early AM 06/28/2023 5:53 AM ASPARAGUS CUTTER ALT (SGPT) Early AM 06/28/2023 5:53 AM ASPARAGUS CUTTER CREATININE Early AM 06/28/2023 5:53 AM ASPARAGUS CUTTER POTASSIUM Early AM 06/28/2023 5:53 AM ASPARAGUS CUTTER SODIUM Early AM 06/28/2023 5:53 AM ASPARAGUS CUTTER GLUCOSE METER Routine 06/27/2023 8:48 PM ASPARAGUS CUTTER GLUCOSE METER Routine 06/27/2023 3:59 PM ASPARAGUS CUTTER GLUCOSE METER Routine 06/27/2023 9:41 AM ASPARAGUS CUTTER MYCOPHENOLIC ACID (MPA) AND METABOLITE Today 06/27/2023 9:00 AM ASPARAGUS CUTTER TACROLIMUS (UMN) TACR Today 06/27/2023 9:00 AM ASPARAGUS CUTTER SCAN-CARDIAC STRIP 06/27/2023 8: 35 AM ASPARAGUS CUTTER PLATELET COUNT Early AM 06/27/2023 5:57 AM ASPARAGUS CUTTER HEPATIC FUNCTION PANEL Early AM 06/27/2023 5:57 AM ASPARAGUS CUTTER HEMOGLOBIN Early AM 06/27/2023 5:57 AM ASPARAGUS CUTTER WHITE BLOOD COUNT Early AM 06/27/2023 5:5 7 AM ASPARAGUS CUTTER MAGNESIUM Early AM 06/27/2023 5:57 AM ASPARAGUS CUTTER CREATININE Early AM 06/27/2023 5:57 AM ASPARAGUS CUTTER POTASSIUM Early AM 06/27/2023 5:57 AM ASPARAGUS CUTTER SODIUM Early AM 06/27/2023 5:57 AM ASPARAGUS CUTTER GLUCOSE METER Routine 06/26/2023 8:49 PM ASPARAGUS CUTTER SCAN-CARDIAC STRIP 06/26/2023 6: 30 PM ASPARAGUS CUTTER GLUCOSE METER Routine 06/26/2023 5:[address] HEAD BRAIN WO STAT 06/26/2023 4:23 PM ASPARAGUS CUTTER TROPONIN T (HS) ONE TIME Timed 06/26/2023 4:06 PM ASPARAGUS CUTTER XR CHEST 1 VIEW PORTABLE STAT 06/26/2023 2:28 PM ASPARAGUS CUTTER EKG 12 LEAD STAT 06/26/2023 2:15 PM [facility]ARAGUS CUTTER LACTATE VENOUS Today 06/26/2023 2:03 PM ASPARAGUS CUTTER CBC WITH AUTO DIFFERENTIAL STAT 06/26/2023 1:58 PM ASPARAGUS CUTTER TROPONIN T (HS) ACUTE W/2HR REFLEX STAT 06/26/2023 1:58 PM ASPARAGUS CUTTER COMP METABOLIC PANEL STAT 06/26/2023 1:58 PM ASPARAGUS CUTTER CBC WITH AUTO DIFFERENTIAL STAT 06/26/2023 1:58 PM ASPARAGUS CUTTER URINE CULTURE JOVANNI 06/26/2023 1:47 PM ASPARAGUS CUTTER URINALYSIS MICROSCOPIC STAT 06/26/2023 1:47 PM ASPARAGUS CUTTER UA W/ SEDIMENT EXAM REFLEXED PER CRITERIA STAT 06/26/2023 1:47 PM ASPARAGUS CUTTER SCAN-CARDIAC STRIP 06/24/2023 4: 52 PM CDT SCAN-CARDIAC STRIP 06/24/2023 12 :34 PM CDT SCAN-CARDIAC STRIP 06/24/2023 11 :56 AM CDT GLUCOSE METER Routine 06/24/2023 11:44 AM CDT GLUCOSE METER Routine 06/24/2023 8:52 AM CDT PROTIME-INR Today 06/24/2023 8:38 AM CDT CREATININE Today 06/24/2023 8:38 AM CDT GLUCOSE METER Routine 06/24/2023 1:26 AM CDT SCAN-CARDIAC STRIP 06/23/2023 11 :09 PM CDT GLUCOSE METER Routine 06/23/2023 9:29 PM CDT SCAN-CARDIAC STRIP 06/23/2023 7: 40 PM CDT GLUCOSE METER Routine 06/23/2023 5:49 PM CDT SCAN-CARDIAC STRIP 06/23/2023 1: 59 PM CDT GLUCOSE METER Routine 06/23/2023 1:22 PM CDT GLUCOSE METER Routine 06/23/2023 1:12 PM CDT ECHO TTE LIMITED W CONTRAST W COLOR W DOPPLER Routine 06/23/2023 12:47 PM CDT SCAN-CARDIAC STRIP 06/23/2023 10 :22 AM CDT EKG 12 LEAD Routine 06/23/2023 10:19 AM CDT SCAN-CARDIAC STRIP 06/23/2023 10 :18 AM CDT SCAN-CARDIAC STRIP 06/23/2023 9: 23 AM CDT SCAN-CARDIAC STRIP 06/23/2023 8: 14 AM CDT GLUCOSE METER Routine 06/23/2023 7:27 AM CDT SCAN-CARDIAC STRIP 06/23/2023 6: 34 AM CDT HEMOGLOBIN A1C SCREENING Early AM 06/23/2023 5:58 AM CDT LIPID PANEL Early AM 06/23/2023 5:58 AM CDT SCAN-CARDIAC STRIP 06/22/2023 10 :41 PM CDT GLUCOSE METER Routine 06/22/2023 10:33 PM CDT MR ANGIO STROKE HEAD WO AND NECK WO AND MR BRAIN WO STAT 06/22/2023 6:32 PM CDT TROPONIN T (HS) ONE TIME Timed 06/22/2023 5:00 PM CDT GLUCOSE METER Routine 06/22/2023 4:[address] HEAD STROKE PROTOCOL WITHOUT CONTRAST STAT 06/22/2023 4:06 PM CDT PLATELET ESTIMATE STAT 06/22/2023 2:5 1 PM CDT RED CELL MORPHOLOGY STAT 06/22/2023 2 :51 PM CDT APTT STAT 06/22/2023 2:51 PM CDT PROTIME-INR STAT 06/22/2023 2:51 PM CDT TROPONIN T (HS) ACUTE W/2HR REFLEX STAT 06/22/2023 2:51 PM CDT BASIC METABOLIC PANEL STAT 06/22/2023 2:51 PM CDT CBC W PLT NO DIFF STAT 06/22/2023 2:5 1 PM CDT EKG 12 LEAD STAT 06/22/2023 2:38 PM CDT from Last 3 Months Results * (ABNORMAL) GLUCOSE METER (08/24/2023 11:10 AM ASPARAGUS CUTTER) Only the most recent of21 resultswithin the time period is included. GLUCOSE METER 248(H) 65 - 100 mg/dL 08/24/2023 11:15 AM [facility] C[facility] Blood BLOOD SPECIMEN / Unknown 08/24/2023 11:10 AM ASPARAGUS CUTTER 08/24/2023 11:15 AM [facility]AG[facility] CUTTER Ebenezer Sanchez MD CHEMISTRY [facility] [address] [address] * Supraglottic (08/24/2023 10:27 AM ASPARAGUS CUTTER) Narrative Sharon Pete CRNA - 08/24/2023 10:27 AM [facility]ARAGUS CUTTER Sharon Pete CRNA ? 08/24/2023 10:28 AM Procedure: Supraglottic Patient location during procedure: OR Supraglottic Airway Properties Mask Ventilation: not attempted Type: i-gel Tube Size: 5 Insertion Attempts: 1 Placement Verification: auscultation and CO2 detection Assessment Assessment: atraumatic and dentition unchanged Kendell Ontiveros III, MD ANESTHES IA PX NOTE ORDERABLES * (ABNORMAL) MRSA/SA PCR (08/24/2023 9:00 AM ASPARAGUS CUTTER) MRSA DNA PCR Positive( A) Negative 08/24/2023 11:31 PM [facility] C[facility]TER [facility] STAPHYLOCOCCUS AUREUS PCR Positive( A) Negative 08/24/2023 11:31 PM [facility]ARAGUS CUTTER [facility] Other SPECIMEN FROM INTERNAL NOSE / Unknown Non-Blood / Unknown 08/24/2023 9:00 AM ASPARAGUS CUTTER 08/24/2023 9:07 AM [facility]AG[facility] CUTTER Narrative [facility] - 08/24/2023 11:31 PM ASPARAGUS CUTTER A positive test result does not necessarily indicate the presence of viable organisms. It is, however, presumptive for the presence of Methicillin Resistant Staphylococcus aureus (MRSA) or Staphylococcus aureus. Ebenezer Sanchez MD MICROBIOLOGY [facility] [address] [place] [address], [place] * NM CARDIAC MPI STRESS TEST (08/11/2023 1:13 PM [facility]ARAG[facility] CUTTER) Anatomical Region Laterality Modality HEART Ultrasound 08/11/2023 9:28 AM [facility]ARAG[facility] CUTTER Narrative 08/11/2023 5:07 PM [facility]ARAGUS CUTTER ? Toll -free: [phone] ?[employer] ? MYOCARDIAL PERFUSION IMAGING REPORT REST/STRESS SINGLE ISOTOPE GATED SPECT IMAGING Patient Name: ?? ELINOR GUTHRIE ? Gender: ? M ? Height: ? 70 in Accession #: ?[id number] ?Weight: ? 300 lb Study Date: ? 08/11/2023 9:28:55 AM ?BSA: ?2.48 m? ? ? : ?1950 73 years ?BMI: ?43.05 kg/m? ? ? Ord. Prov.: ? DIONICIO CALLAHAN ? Monitoring Prov.: Performing Site [facility] Clinical History: ? Chest pain, dyspnea, lightheadedness, nausea and fatigue. ?No known coronary artery disease. Cardiac Risk Factors: Hypertension, hypercholesterolemia, diabetes mellitus and ?family history of heart disease. Other Symptomatology: PVD. Cardiac History: ?Abnormal ECG. Beta berto/calcium channel berto/nitrate taken today: No. Caffeine/methylxanthine taken within 12 hrs: ?No. Chest pain/discomfort at baseline: ?No. IMPRESSION 1. Myocardial perfusion was normal. 2. Overall left ventricular systolic function was normal without wall motion abnormalities. The post stress LVEF was calculated to be 64 %. 3. Adequate pharmacologic stress test with regadenoson. 4. Left ventricular cavity size was mildly enlarged (resting EDV 157 ml). 5. See separate report for EKG intrepretation. 6. There were no prior studies available for comparison. STRESS MPI PROCEDURE The patient was studied utilizing a two day rest/stress protocol. Myocardial perfusion imaging was performed at rest, 25 minutes following the intravenous injection of 41.1 mCi of 99mTc sestamibi. 30 seconds after the 15 second IV regadenoson injection, the patient was injected via IV with 40.8 mCi of 99mTc sestamibi. Gated post-stress tomographic imaging was performed 35 minutes after stress. After image acquisition was completed, data was reconstructed in short, horizontal long and vertical long axis views and tomographic slices were generated. - Pharmacologic stress testing was performed with an IV regadenoson dose of 0.4 mg. - No low level exercise was performed. - Resting heart rate was 67 bpm, peak heart rate was 154 bpm. - Resting blood pressure was 174/82 mmHg; peak blood pressure was 193/82 mmHg. FINDINGS Imaging - The overall quality of the study was good with moderate soft tissue attenuation and patient motion. Computerized motion correction was not applied. - SPECT perfusion images were normal without evidence of ischemia or infarction. - Computer processed gated imaging revealed mildly enlarged left ventricular size with a calculated LVEF of 64 %. (Lab normals: LVEF >50%, LV Size <150 ml). - There was normal post-stress myocardial thickening and wall motion. - No right ventricular abnormalities were identified. - There was no evidence of abnormal lung or extracardiac activity. - Risk/extent of ischemia per ACC Noninvasive Risk Stratification Guideline: LOW RISK. This study was interpreted and electronically signed by Barbara Baig MD on 08/11/2023 5:07:02 PM. ??Final ?? Procedure Note Barbara Baig MD - 08/11/2023 Toll -free: [phone] [employer] MYOCARDIAL PERFUSION IMAGING REPORT REST/STRESS SINGLE ISOTOPE GATED SPECT IMAGING Patient Name: ELINOR GUTHRIE Gender: M Height: 70 in Weight: 300 lb Study Date: 08/11/2023 9:28:55 AM BSA: 2.48 m? ? ? : 1950 73 years BMI: 43.05kg/m? ? ? Ord. Prov.: [employer] [facility] Monitoring Prov.: Performing Site [facility] Clinical History: Chest pain, dyspnea, lightheadedness, nausea andfatigue. No known coronary artery disease. Cardiac Risk Factors: Hypertension, hypercholesterolemia, diabetesmellitus and family history of heart disease. Other Symptomatology: PVD. Cardiac History: Abnormal ECG. Beta berto/calcium channel berto/nitrate taken today: No. Caffeine/methylxanthine taken within 12 hrs: No. Chest pain/discomfort at baseline: No. IMPRESSION 1. Myocardial perfusion was normal. 2. Overall left ventricular systolic function was normal without wallmotion abnormalities. The post stress LVEF was calculated to be 64 %. 3. Adequate pharmacologic stress test with regadenoson. 4. Left ventricular cavity size was mildly enlarged (resting EDV 157ml). 5. See separate report for EKG intrepretation. 6. There were no prior studies available for comparison. STRESS MPI PROCEDURE The patient was studied utilizing a two day rest/stress protocol.Myocardial perfusion imaging was performed at rest, 25 minutes followingthe intravenous injection of 41.1 mCi of 99mTc sestamibi. 30 seconds afterthe 15 second IV regadenoson injection, the patient was injected via IVwith 40.8 mCi of 99mTc sestamibi. Gated post-stress tomographic imagingwas performed 35 minutes after stress. After image acquisition wascompleted, data was reconstructed in short, horizontal long and verticallong axis views and tomographic slices were generated. - Pharmacologic stress testing was performed with an IV regadenoson doseof 0.4 mg. - No low level exercise was performed. - Resting heart rate was 67 bpm, peak heart rate was 154 bpm. - Resting blood pressure was 174/82 mmHg; peak blood pressure was 193/82mmHg. FINDINGS Imaging - The overall quality of the study was good with moderate soft tissue attenuation and patient motion. Computerized motion correction was notapplied. - SPECT perfusion images were normal without evidence of ischemia orinfarction. - Computer processed gated imaging revealed mildly enlarged leftventricular size with a calculated LVEF of 64 %. (Lab normals: LVEF >50%, LV Size <150ml). - There was normal post-stress myocardial thickening and wall motion. - No right ventricular abnormalities were identified. - There was no evidence of abnormal lung or extracardiac activity. - Risk/extent of ischemia per ACC Noninvasive Risk StratificationGuideline: LOW RISK. This study was interpreted and electronically signed by Barbara Baig MD on08/11/2023 5:07:02 PM. Final Dionicio Callahan MD NM * (ABNORMAL) CBC WITH AUTO DIFFERENTIAL (07/04/2023 6:33 AM [facility]) Only the most recent of2 resultswithin the time period is included. Pathologist [facility] WHITE BLOOD COUNT 5.7 4.5 - 11.0 thou/cu mm 07/04/2023 7:48 AM [facility] RED BLOOD COUNT 4.28(L) 4.30 - 5.90 mil/cu mm 07/04/2023 7:48 AM [facility] HEMOGLOBIN 11.6(L) 13.5 - 17.5 g/dL 07/04/2023 7:48 AM [facility] HEMATOCRIT 36.0(L) 37.0 - 53.0 % 07/04/2023 7:48 AM [facility] MCV 84 80 - 100 fL 07/04/2023 7:48 AM [facility] MCH 27.1 26.0 - 34.0 pg 07/04/2023 7:48 AM [facility] MCHC 32.2 32.0 - 36.0 g/dL 07/04/2023 7:48 AM [facility] RDW 15.3 11.5 - 15.5 % 07/04/2023 7:48 AM [facility] PLATELET COUNT 81(L) 140 - 440 thou/cu mm 07/04/2023 7:48 AM [facility] MPV 11.9(H) 6.5 - 11.0 fL 07/04/2023 7:48 AM [facility] % NEUT 65.2 % 07/04/2023 7:48 AM [facility] % LYMPH 16.0 % 07/04/2023 7:48 AM [facility] % MONO 9.1 % 07/04/2023 7:48 AM [facility] % EOS 9.5 % 07/04/2023 7:48 AM [facility] % BASO 0.2 % 07/04/2023 7:48 AM [facility] ABSOLUTE NEUTROPHILS 3.7 1.7 - 7.0 thou/cu mm 07/04/2023 7:48 AM [facility] ABSOLUTE LYMPHOCYTES 0.9 0.9 - 2.9 thou/cu mm 07/04/2023 7:48 AM [facility] ABSOLUTE MONOCYTES 0.5 <0.9 thou/cu mm 07/04/2023 7:48 AM [facility] ABSOLUTE EOSINOPHILS 0.5(H) <0.5 thou/cu mm 07/04/2023 7:48 AM [facility] ABSOLUTE BASOPHILS 0.0 <0.3 thou/cu mm 07/04/2023 7:48 AM [facility] Blood BLOOD SPECIMEN / Unknown Line/Port / Unknown 07/04/2023 6:33 AM [facility] C[facility]TER 07/04/2023 7:20 AM [facility] Victorina Dowell MD HEMAT OLOGY [facility] [address] [address] * (ABNORMAL) PLATELET ESTIMATE (07/04/2023 6:33 AM [facility]AR[facility] CUTTER) Only the most recent of2 resultswithin the time period is included. PLATELET ESTIMATE Decreased (A) Adequate, No estimate 07/04/2023 7:48 AM [facility] Blood BLOOD SPECIMEN / Unknown Line/Port / Unknown 07/04/2023 6:33 AM [facility] C[facility]TER 07/04/2023 7:20 AM [facility] C[facility]TER Victorina Dowell MD HEMAT OLOGY Performing Organization Address [facility] Co de Phone Number [facility] [address] [address] * (ABNORMAL) COMP METABOLIC PANEL (07/04/2023 6:33 AM [facility]ARAG[facility] CUTTER) Only the most recent of2 resultswithin the time period is included. Pathologist [facility] SODIUM 138 136 - 145 mmol/L 07/04/2023 8:14 AM [facility] POTASSIUM 3.8 3.5 - 5.1 mmol/L 07/04/2023 8:14 AM [facility] CHLORIDE 105 98 - 107 mmol/L 07/04/2023 8:14 AM [facility] CO2,TOTAL 23 22 - 29 mmol/L 07/04/2023 8:14 AM [facility] ANION GAP 10 5 - 18 07/04/2023 8:14 AM [facility] GLUCOSE 158(H) 70 - 99 mg/dL 07/04/2023 8:14 AM [facility] CALCIUM 9.1 8.8 - 10.2 mg/dL 07/04/2023 8:14 AM [facility] BUN 36(H) 8 - 23 mg/dL 07/04/2023 8:14 AM [facility] CREATININE 2.39(H) 0.70 - 1.20 mg/dL 07/04/2023 8:14 AM [facility] BUN/CREAT RATIO 15 10 - 20 8:14 AM [facility] eGFR 28(L) >90 mL/min/1.7 3m2 07/04/2023 8:14 AM [facility] Comment:As of 2021, eG FR is calculated by the CKD-EPI creatinine equation without race adjustment. ??eGFR can be influenced by muscle mass, exercise, and diet. ??The reported eGFR is an estimation only and is only applicable if the renal function is stable. ALBUMIN 3.1(L) 4.0 - 4.9 g/dL 07/04/2023 8:14 AM [facility] PROTEIN,TOTAL 5.8(L) 6.0 - 8.0 g/dL 07/04/2023 8:14 AM [facility] BILIRUBIN,TOTAL 0.4 0.0 - 1.2 mg/dL 07/04/2023 8:14 AM [facility] ALK PHOSPHATASE 109 40 - 129 IU/L 07/04/2023 8:14 AM [facility] ALT (SGPT) <5(L) 10 - 50 IU/L 07/04/2023 8:14 AM [facility] AST (SGOT) 14 10 - 50 IU/L 07/04/2023 8:14 AM [facility] Blood BLOOD SPECIMEN / Unknown Line/Port / Unknown 07/04/2023 6:33 AM [facility] C[facility]TER 07/04/2023 7:20 AM [facility] Victorina Dowell MD CHEMI STRY [facility] [address] [address] * (ABNORMAL) AEROBIC BACTERIAL CULTURE, STAIN (06/30/2023 12:15 PM [facility]ARAG[facility] CUTTER) CULTURE RESULT(A) 07/04/2023 7:15 AM [facility] CUTTER [facility]AL LABORAT[facility] CULTURE 4+ Staphylococcus aureus 07/04/2023 7:15 AM [facility] CUTTER [facility] Comment:Isolate is MRSA (Met hicillin-resistant Staph aureus). CULTURE 1+ Mixed charlene present 07/04/2023 7:15 AM [facility] C[facility] GRAM STAIN No Epithelial cells 07/04/2023 7:15 AM [facility] C[facility] GRAM STAIN No RBCs 07/04/2023 7:15 AM [facility] CUTTER [facility] GRAM STAIN No PMNs 07/04/2023 7:15 AM [facility] CUTTER [facility] GRAM STAIN 4+ Gram Positive Cocci 07/04/2023 7:15 AM [facility] CUTTER [facility] Swab SPECIMEN FROM LOWER LIMB / Unknown Non-Blood / Unknown 06/30/2023 12:15 PM [facility] CUTTER 06/30/2023 1:22 PM [facility] C[facility]TER Narrative [facility] - 07/04/2023 7:15 AM ASPARAGUS CUTTER Mixed Charlene; beta-Strep, Strep. pneumoniae, or Pseudomonas aeruginosa Organism Antibiotic Method Susceptibility Staphylococcus aureus OXACILLIN >=4: R Staphylococcus aureus CLINDAMYCIN >=4: R Staphylococcus aureus DOXYCYCLINE <=0.5: S Staphylococcus aureus CEFAZOLIN R Staphylococcus aureus VANCOMYCIN 1: S Staphylococcus aureus TRIMETHOPRIM/SULF <=0.5/9.5: S Victorina Dowell MD MICRO BIOLOGY [facility] [address] [place] [address], * SODIUM (06/29/2023 5:50 AM [facility] CUTTER) Only the most recent of3 resultswithin the time period is included. SODIUM 139 136 - 145 mmol/L 06/29/2023 11:44 AM [facility]ARAG[facility] CUTTER [facility] Blood BLOOD SPECIMEN / Unknown Venipuncture / Unknown 06/29/2023 5:50 AM [facility] CUTTER 06/29/2023 6:35 AM [facility] Sloan Carlos NP CHEMISTRY [facility] [address] [place] [address] * POTASSIUM (06/29/2023 5:50 AM [facility] CUTTER) Only the most recent of3 resultswithin the time period is included. POTASSIUM 3.7 3.5 - 5.1 mmol/L 06/29/2023 11:44 AM [facility] Blood BLOOD SPECIMEN / Unknown Venipuncture / Unknown 06/29/2023 5:50 AM [facility] CUTTER 06/29/2023 6:35 AM [facility] Sloan Carlos LUNCH TRUCK OPERATOR CHEMISTRY [facility] [address] [place] [address] * (ABNORMAL) CREATININE (06/29/2023 5:50 AM [facility] CUTTER) Only the most recent of4 resultswithin the time period is included. Pathologist [facility] eGFR 27(L) >90 mL/min/1.7 3m2 06/29/2023 11:44 AM [facility] Comment:As of 2021, eG FR is calculated by the CKD-EPI creatinine equation without race adjustment. ??eGFR can be influenced by muscle mass, exercise, and diet. ??The reported eGFR is an estimation only and is only applicable if the renal function is stable. CREATININE 2.45(H) 0.70 - 1.20 mg/dL 06/29/2023 11:44 AM [facility] Blood BLOOD SPECIMEN / Unknown Venipuncture / Unknown 06/29/2023 5:50 AM [facility] C[facility]TER 06/29/2023 6:35 AM [facility] Sloan Carlos NP CHEMISTRY Performing Organization Address City/[facility]/ZIP Co de Phone Number [facility] [address] [place] [address] * XR CHEST 1 VIEW PORTABLE (06/28/2023 11:37 PM [facility] CUTTER) Only the most recent of3 resultswithin the time period is included. Anatomical Region Laterality Modality HEART, THORAX, CHEST Digital Rad iography 06/29/2023 12:1 6 AM [facility] C[facility]TER Impressions 06/29/2023 12:16 AM [facility] C[facility] Left upper extremity PICC tip projects over the lower SVC. Dictated by Camden Moreno MD @ 06/29/2023 12:16:27 AM (Electronically Signed) Narrative 06/29/2023 12:16 AM [facility] CUTTER For Patients: ??As a result of the Cures Act, medical imaging exams and procedure reports are released immediately into your electronic medical record. ??You may view this report before your referring provider. ??If you have questions, please contact your health care provider. INDICATION: Line placement. TECHNIQUE: Chest 1 view. COMPARISON: Few minutes prior. FINDINGS: Cardiovascular and mediastinum: Stable cardiomediastinal silhouette. Advancement of the left upper extremity PICC with its tip projecting over the lower SVC. Lungs and pleural spaces: Vascular congestion. No new focal consolidation. No large pleural effusion. No pneumothorax. Bones and soft tissues: No significant findings. Procedure Note Camden Moreno MD - 06/29/2023 For Patients: As a result of the Cures Act, medical imagingexams and procedure reports are released immediately into your electronicmedical record. You may view this report before your referring provider.If you have questions, please contact your health care provider. INDICATION: Line placement. TECHNIQUE: Chest 1 view. COMPARISON: Few minutes prior. FINDINGS: Cardiovascular and mediastinum: Stable cardiomediastinal silhouette.Advancement of the left upper extremity PICC with its tip projecting overthe lower SVC. Lungs and pleural spaces: Vascular congestion. No new focal consolidation.No large pleural effusion. No pneumothorax. Bones and soft tissues: No significant findings. IMPRESSION: Left upper extremity PICC tip projects over the lower SVC. Dictated by Camden Moreno MD @ 06/29/2023 12:16:27 AM (Electronically Signed) Inez Duncan RN GENERAL IMAGING * SCAN-CARDIAC STRIP (06/28/2023 8:18 AM [facility] CUTTER) Scanner OTHER * (ABNORMAL) ALT (SGPT) (06/28/2023 5:53 AM [facility] CUTTER) ALT (SGPT) <5(L) 10 - 50 IU/L 06/28/2023 6:53 AM [facility]AG[facility] CUTTER [facility] Blood BLOOD SPECIMEN / Unknown Venipuncture / Unknown 06/28/2023 5:53 AM [facility] CUTTER 06/28/2023 6:19 AM [facility] Sloan Carlos LUNCH TRUCK OPERATOR CHEMISTRY [facility] [address] [place] [address] * (ABNORMAL) ALBUMIN (06/28/2023 5:53 AM [facility]AG[facility] CUTTER) Pathologist [facility] ALBUMIN 3.1(L) 4.0 - 4.9 g/dL 06/28/2023 6:52 AM [facility] CUTTER [facility] Blood BLOOD SPECIMEN / Unknown Venipuncture / Unknown 06/28/2023 5:53 AM [facility] CUTTER 06/28/2023 6:19 AM [facility] Sloan Carlos LUNCH TRUCK OPERATOR CHEMISTRY [facility] [address] [place] [address] * (ABNORMAL) MYCOPHENOLIC ACID (MPA) AND METABOLITE (06/27/2023 9:00 AM [facility] CUTTER) Pathologist [facility] Mycophenolic Acid 2.6 1.0 - 3.5 ug/mL 06/30/2023 10:10 AM [facility] Mycophenolic Acid Glucuronide 152(H) 15 - 125 ug/mL 06/30/2023 10:[address] [facility] ([facility]) Blood BLOOD SPECIMEN / Unknown Butterfly / Unknown 06/27/2023 9:00 AM [facility] C[facility]TER 06/27/2023 9:22 AM [facility] CUTTER N[address]ative [facility] ([facility]) - 06/30/2023 10:10 AM [facility]ARAGUS CUTTER Test(s) 310332-Rxxmomyugbqb Acid; 581320- Mycophenolic Acid Glucuronide was developed and its performance characteristics determined by [facility]. It has not been cleared or approved by the Food and Drug Administration. Performed at: ??01 - [facility] [address] [place] [address] ??[id number] Mesh Worker: Bing Lemus MD, Phone: ??[phone] Nadiya Bullard MD SEND OUT S [facility] (CET) [address] [place] [id number], * TACROLIMUS (06/27/2023 9:00 AM [facility] CUTTER) TACROLIMUS 4.5 ng/mL 06/28/2023 9:08 AM [facility] DATE OF LAST DOSE,TACROLIMUS 06/26/2023 06/28/2023 9:08 AM [facility] CUTTER [facility] TIME OF LAST DOSE,TACROLIMUS 5:49 PM 06/28/2023 9:08 AM [facility] Blood BLOOD SPECIMEN / Unknown Butterfly / Unknown 06/27/2023 9:00 AM [facility] CUTTER 06/27/2023 9:22 AM [facility]ARAGUS CUTTER [facility] LABORAT[facility]AL LABORATORY - 06/28/2023 9:08 AM ASPARAGUS CUTTER Target blood levels in Heart Transplant recipient: ?o 0-3 months post transplant: ?12-15 ng/ml ?o >3-6 months post transplant: ? 10-15 ng/ml ?o >6-12 months post transplant: ? 8-12 ng/ml ?o >12 months post transplant: ? 5-10 ng/ml Target blood levels in Kidney Transplant recipient: ?o 0-3 months post transplant: ?10-12 ng/ml ?o >3-6 months post transplant: ?8-10 ng/ml ?o >6-12 months post transplant: ? 5-8 ??ng/ml ?o >12 months post transplant: ? 4-6 ??ng/ml Patients may have an individual goal range due to risk of rejection or adverse effects of tacrolimus. Biotin supplements may cause clinically significant interference for this test assay. If interference is suspected, it is strongly recommended that biotin is discontinued for at least one week prior to retesting Analytical method is electrochemiluminescence immunoassay (ECLIA) and the method platform is the Cynthia Immunoassay analyzer. Nadiya Bullard MD SEND OUT S Performing Organization Address City/[facility] Co de Phone Number [facility] LAB[facility] [address] [place] [address], [facility] [address] [place] [address] * SCAN-CARDIAC STRIP (06/27/2023 8:35 AM [facility] CUTTER) Scanner OTHER * (ABNORMAL) PLATELET COUNT (06/27/2023 5:57 AM [facility]ARAG[facility] CUTTER) PLATELET COUNT 79(L) 140 - 440 thou/cu mm 06/27/2023 6:22 AM [facility]AG[facility] CUTTER [facility] MPV 12.2(H) 6.5 - 11.0 fL 06/27/2023 6:22 AM [facility] CUTTER [facility] Blood BLOOD SPECIMEN / Unknown Butterfly / Unknown 06/27/2023 5:57 AM [facility] CUTTER 06/27/2023 6:14 AM [facility] Sloan Carlos NP HEMATOLOGY Performing Organization Address [facility]/ZIP Co de Phone Number [facility] [address] [place] [address] * WHITE BLOOD COUNT (06/27/2023 5:57 AM [facility] CUTTER) WHITE BLOOD COUNT 7.4 4.5 - 11.0 thou/cu mm 06/27/2023 6:22 AM [facility] CUTTER [facility] Blood BLOOD SPECIMEN / Unknown Butterfly / Unknown 06/27/2023 5:57 AM [facility] C[facility]TER 06/27/2023 6:14 AM [facility] Sloan Carlos NP HEMATOLOGY Performing Organization Address City/[facility]/ZIP Co de Phone Number [facility] [address] [place] [address] * (ABNORMAL) HEMOGLOBIN (06/27/2023 5:57 AM [facility] C[facility]TER) HEMOGLOBIN 12.7(L) 13.5 - 17.5 g/dL 06/27/2023 6:22 AM [facility]AG[facility] CUTTER [facility] MCV 84 80 - 100 fL 06/27/2023 6:22 AM [facility]ARAGUS CUTTER [facility] Blood BLOOD SPECIMEN / Unknown Butterfly / Unknown 06/27/2023 5:57 AM [facility] CUTTER 06/27/2023 6:14 AM [facility] Sloan Carlos NP HEMATOLOGY Performing Organization Address [facility]/ZIP Co de Phone Number [facility] [address] [place] [address] * MAGNESIUM (06/27/2023 5:57 AM [facility] CUTTER) MAGNESIUM 1.9 1.6 - 2.4 mg/dL 06/27/2023 7:53 AM [facility]AG[facility] CUTTER [facility] Blood BLOOD SPECIMEN / Unknown Butterfly / Unknown 06/27/2023 5:57 AM [facility] CUTTER 06/27/2023 6:14 AM [facility] Sloan Carlos NP CHEMISTRY Performing Organization Address City/[facility]/ZIP Co de Phone Number [facility] [address] [place] [address] * (ABNORMAL) HEPATIC FUNCTION PANEL (06/27/2023 5:57 AM [facility] CUTTER) ALBUMIN 3.1(L) 4.0 - 4.9 g/dL 06/27/2023 8:10 AM [facility] PROTEIN,TOTAL 6.0 6.0 - 8.0 g/dL 06/27/2023 8:10 AM [facility] BILIRUBIN,TOTAL 0.8 0.0 - 1.2 mg/dL 06/27/2023 8:10 AM [facility] BILIRUBIN,DIRECT 0.3 0.0 - 0.3 mg/dL 06/27/2023 8:10 AM [facility] BILIRUBIN,INDIRE CT 0.5 0.2 - 0.8 mg/dL 06/27/2023 8:10 AM [facility] ALK PHOSPHATASE 127 40 - 129 IU/L 06/27/2023 8:10 AM [facility] ALT (SGPT) <5(L) 10 - 50 IU/L 06/27/2023 8:10 AM [facility] AST (SGOT) 12 10 - 50 IU/L 06/27/2023 8:10 AM [facility] Blood BLOOD SPECIMEN / Unknown Butterfly / Unknown 06/27/2023 5:57 AM [facility] CUTTER 06/27/2023 6:14 AM [facility] Sloan Carlos LUNCH TRUCK OPERATOR CHEMISTRY Performing Organization Address City/State/[facility] Co de Phone Number [facility] [address] [place] [address] * SCAN-CARDIAC STRIP (06/26/2023 6:30 PM [facility]AG[facility] CUTTER) Scanner OTHER * CT HEAD BRAIN WO (06/26/2023 4:23 PM [facility]ARAG[facility] CUTTER) Anatomical Region Laterality Modality HEAD, BRAIN Computed Tomogra phy 06/26/2023 5:01 PM [facility]ARAG[facility] CUTTER Impressions 06/26/2023 5:01 PM [facility] CUTTER Unremarkable noncontrast head CT. Please note that all CT scans at this facility use dose modulation, iterative reconstruction, and/or weight-based dosing when appropriate to reduce radiation dose to as low as reasonably achievable. Dictated by Dharmesh Clarke MD @ 06/26/2023 5:01:34 PM (Electronically Signed) Narrative 06/26/2023 5:01 PM [facility]AG[facility] CUTTER For Patients: ??As a result of the Cures Act, medical imaging exams and procedure reports are released immediately into your electronic medical record. ??You may view this report before your referring provider. ??If you have questions, please contact your health care provider. INDICATION: Confusion. TECHNIQUE: CT head without contrast. COMPARISON: None. FINDINGS: CSF spaces: Within normal limits for age. ?? Brain parenchyma and extra-axial spaces: The smith-white differentiation is normal. ??No sign of mass, hemorrhage, or midline shift. No extra-axial fluid collection. ?? Skull base and calvarium: The visualized paranasal sinuses and mastoid air cells demonstrate no acute or significant findings. ??The visualized orbits are grossly unremarkable. ??No skull fractures. ?? Procedure Note Dharmesh Clarke MD - 06/26/2023 For Patients: As a result of the Cures Act, medical imagingexams and procedure reports are released immediately into your electronicmedical record. You may view this report before your referring provider.If you have questions, please contact your health care provider. INDICATION: Confusion. TECHNIQUE: CT head without contrast. COMPARISON: None. FINDINGS: CSF spaces: Within normal limits for age. Brain parenchyma and extra-axial spaces: The smith-white differentiation isnormal. No sign of mass, hemorrhage, or midline shift. No extra-axialfluid collection. Skull base and calvarium: The visualized paranasal sinuses and mastoid aircells demonstrate no acute or significant findings. The visualized orbitsare grossly unremarkable. No skull fractures. IMPRESSION: Unremarkable noncontrast head CT. Please note that all CT scans at this facility use dose modulation,iterative reconstruction, and/or weight-based dosing when appropriate toreduce radiation dose to as low as reasonably achievable. Dictated by Dharmesh Clarke MD @ 06/26/2023 5:01:34 PM (Electronically Signed) Radha Francois DO CT * (ABNORMAL) TROPONIN T (HS) ONE TIME (06/26/2023 4:06 PM ASPARAGUS CUTTER) Only the most recent of2 resultswithin the time period is included. [facility] TROPONIN T HS 39(H) 6-15 ng/L ng/L 06/26/2023 4:29 PM ASPARAGUS CUTTER [facility] Blood BLOOD SPECIMEN / Unknown Venipuncture / Unknown 06/26/2023 4:06 PM ASPARAGUS CUTTER 06/26/2023 4:11 PM ASPARAGUS CUTTER Radha Francois DO CHEMISTRY Performing Organization Address City/[facility] Co de Phone Number [facility] [address] [place] [address] * EKG 12 LEAD (06/26/2023 2:15 PM ASPARAGUS CUTTER) Only the most recent of3 resultswithin the time period is included. [facility] Interpretation Atrial fibrillation Abnormal ECG When compared with ECG of 23-JUN-2023 10:19, No significant change was found no acute ST IT wave abnormalities ?? BEYOND NOW Ventricular Rate 61 BPM BEYOND NOW Atrial Rate 88 BPM BEYOND NOW P-R Interval ms BEYOND NOW QRS Duration 116 ms BEYOND NOW QT 438 ms BEYOND NOW QTc 440 ms BEYOND NOW P [place] degrees BEYOND NOW R [place] -10 degrees BEYOND NOW T [place] 33 degrees BEYOND NOW 06/26/2023 2:15 PM ASPARAGUS CUTTER 06/26/2023 6:19 PM ASPARAGUS CUTTER Radha Francois DO EKG ORD Performing Organization Address City/[facility] Co de Phone Number BEYOND NOW [place], [place] * LACTATE VENOUS (06/26/2023 2:03 PM ASPARAGUS CUTTER) [facility] LACTATE,VENOUS 1.1 0.5 - 2.0 mmol/L 06/26/2023 2:31 PM ASPARAGUS CUTTER [facility] Blood BLOOD SPECIMEN / Unknown Venipuncture / Unknown 06/26/2023 2:03 PM ASPARAGUS CUTTER 06/26/2023 2:05 PM ASPARAGUS CUTTER Radha Francois DO CHEMISTRY Performing Organization Address City/[facility]/ZIP Co de Phone Number [facility] [address] [place] [address] * (ABNORMAL) TROPONIN T (HS) ACUTE W/2HR REFLEX (06/26/2023 1:58 PM ASPARAGUS CUTTER) Only the most recent of2 resultswithin the time period is included. TROPONIN T HS 40(H) 6-15 ng/L ng/L 06/26/2023 2:26 PM [facility] Blood BLOOD SPECIMEN / Unknown Venipuncture / Unknown 06/26/2023 1:58 PM ASPARAGUS CUTTER 06/26/2023 2:05 PM ASPARAGUS CUTTER [facility] - 06/26/2023 2:26 PM ASPARAGUS CUTTER hs-cTnT (Elecsys Troponin T Gen 5) concentration (s) above the sex-specific 99th percentile (16 ng/L or greater for males or 11 ng/L or greater for females) are indicative of myocardial injury. If initial hs-cTnT <=100 ng/L at presentation, a 0h/2h ABSOLUTE (ng/L) delta change (rising or falling) of >=10 ng/L suggests a significant change, whereas a 0h/2h delta change <=3 ng/L suggests no significant change. If initial hs-cTnT >100 ng/L at presentation, a 0h/2h/ RELATIVE (percent, %) delta change of 20% is suggested to distinguish patients with acute vs. chronic myocardial injury. There are multiple etiologies that can cause hs-cTnT increases above the 99th percentile (myocardial injury) other than acute myocardial infarction. Clinical context and careful clinical evaluation are critical for diagnosis and risk-stratification. The diagnosis of acute myocardial infarction requires a rising and/or falling pattern in hs-cTnT concentrations with at least one value above the sex-specific 99th percentile PLUS at least one of the following clinical criteria: ischemic symptoms, new or presumed new significant ST-T wave changes or new LBBB, development of pathological Q waves, imaging evidence of new loss of viable myocardium or new regional wall motion abnormality, or identification of intracoronary atherothrombosis or an acute angiographic culprit on coronary angiography. In appropriate low-risk patients with a non-ischemic electrocardiogram without active chest pain with a symptom onset >3-hours without recurrence, a single initial hs-cTnT<6 ng/L identifies patient with a very low risk in emergency department patient population. Radha Francois DO CHEMISTRY Performing Organization Address City/[facility]/ZIP Co de Phone Number [facility] [address] [place] [address] * (ABNORMAL) URINALYSIS MICROSCOPIC (06/26/2023 1:47 PM ASPARAGUS CUTTER) RBC 3-5(A) 0-2, None Seen /HPF 06/26/2023 1:56 PM ASPARAGUS CUTTER [facility] WBC >100(A) 0-2, 3-5, None Seen /HPF 06/26/2023 1:56 PM ASPARAGUS CUTTER [facility] BACTERIA Moderate(A ) None Seen, Rare, Few Bacteria/ HPF 06/26/2023 1:56 PM ASPARAGUS CUTTER [facility] EPITHELIAL CELLS Few None Seen, Few Epi/HPF 06/26/2023 1:56 PM ASPARAGUS CUTTER [facility] WHITE CELL CLUMPS Present(A) (none) 06/26/2023 1:56 PM ASPARAGUS CUTTER [facility] Urine URINE SPECIMEN / Unknown Non-Blood / Unknown 06/26/2023 1:47 PM ASPARAGUS CUTTER 06/26/2023 1:50 PM ASPARAGUS CUTTER Radha Francois DO URINE Performing Organization Address [facility] Co de Phone Number [facility] [address] [place] [address] * (ABNORMAL) URINE CULTURE (06/26/2023 1:47 PM ASPARAGUS CUTTER) CULTURE RESULT(A) 06/28/2023 6:50 AM ASPARAGUS CUTTER [facility]-C [facility]TRAL LAB[facility]ATORY CULTURE >100,000 CFU/mL Serratia marcescens 06/28/2023 6:50 AM ASPARAGUS CUTTER [facility]TRAL LAB[facility]ATORY Comment:Oral cephalosporins are not recommended due to concern for derepression of AmpC beta-lactamases. CULTURE <10,000 CFU/mL Multiple organisms probable contaminants 06/28/2023 6:50 AM ASPARAGUS CUTTER [facility]-C ENTRAL LABORATORY Urine URINE SPECIMEN / Unknown Non-Blood / Unknown 06/26/2023 1:47 PM ASPARAGUS CUTTER 06/26/2023 1:50 PM ASPARAGUS CUTTER Narrative Organism Antibiotic Method Susceptibility Serratia marcescens TRIMETHOPRIM/SULF <=1/19: S Serratia marcescens CEFAZOLIN >=64: R Serratia marcescens GENTAMICIN <=1: S Serratia marcescens CEFTRIAXONE <=1: S Serratia marcescens CEFTAZIDIME <=1: S Serratia marcescens LEVOFLOXACIN 1: I Serratia marcescens CIPROFLOXACIN 1: R Serratia marcescens CEFEPIME <=1: S Serratia marcescens TOBRAMYCIN 2: S Serratia marcescens MEROPENEM <=0.25: S Serratia marcescens NITROFURANTOIN 128: R Radha Francois DO MICROBIOLOGY [facility] [address] [place] [address], [place] * (ABNORMAL) UA W/ SEDIMENT EXAM REFLEXED PER CRITERIA (06/26/2023 1:47 PM ASPARAGUS CUTTER) COLOR Yellow Yellow Color 06/26/2023 1:54 PM [facility] CLARITY Cloudy(A) Clear Clarity 06/26/2023 1:54 PM [facility] SPECIFIC GRAVITY,URINE 1.025 1.010, 1.015, 1.020, 1.025 06/26/2023 1:54 PM [facility] PH,URINE 5.5 6.0, 7.0, 8.0, 5.5, 6.5, 7.5, 8.5 06/26/2023 1:54 PM [facility] UROBILINOGEN, QUALITATIVE Normal Normal EU/dl 06/26/2023 1:54 PM [facility] PROTEIN, URINE >=300(A) Negative mg/dL 06/26/2023 1:54 PM [facility] GLUCOSE, URINE 250(A) Negative mg/dL 06/26/2023 1:54 PM [facility] KETONES,URINE Negative Negative mg/dL 06/26/2023 1:54 PM [facility] BILIRUBIN,URI NE Negative Negative 06/26/2023 1:54 PM ASPARAGUS CUTTER [facility] OCCULT BLOOD,URINE Small(A) Negative 06/26/2023 1:54 PM ASPARAGUS CUTTER [facility] NITRITE Negative Negative 06/26/2023 1:54 PM ASPARAGUS CUTTER [facility] LEUKOCYTE ESTERASE Large(A) Negative 06/26/2023 1:54 PM ASPARAGUS CUTTER [facility] Urine URINE SPECIMEN / Unknown Non-Blood / Unknown 06/26/2023 1:47 PM ASPARAGUS CUTTER 06/26/2023 1:50 PM ASPARAGUS CUTTER Radha Francois DO URINE [facility] [address] [place] [address] * SCAN-CARDIAC STRIP (06/24/2023 4:52 PM CDT) Scanner OTHER * SCAN-CARDIAC STRIP (06/24/2023 12:34 PM CDT) Scanner OTHER * SCAN-CARDIAC STRIP (06/24/2023 11:56 AM CDT) Scanner OTHER * (ABNORMAL) PROTIME-INR (06/24/2023 8:38 AM CDT) Only the most recent of2 resultswithin the time period is included. INR 1.2 <1.3 06/24/2023 8:52 AM CDT [facility] PROTIME 15.4(H) 12.2 - 14.3 sec 06/24/2023 8:52 AM CDT [facility] Blood BLOOD SPECIMEN / Unknown Butterfly / Unknown 06/24/2023 8:38 AM CDT 06/24/2023 8:42 AM CDT Narrative [facility] - 06/24/2023 8:52 AM CDT ?Therapeutic Range 2.0-3.0 for most anticoagulated patients 2.5-3.5 or 4.0 for high risk patients The INR is only used for patients on stable oral anticoagulant therapy. It makes no significant contribution to the diagnosis or treatment of patients whose Protime is prolonged for other reasons. INR results are increased when heparin levels exceed 1.0 U/mL, which corresponds to an aPTT >125 seconds if the patient is on UFH. Nadiya Bullard MD HEMATOLO GY [facility] [address] [place] [address] * SCAN-CARDIAC STRIP (06/23/2023 11:09 PM CDT) Scanner OTHER * SCAN-CARDIAC STRIP (06/23/2023 7:40 PM CDT) Scanner OTHER * SCAN-CARDIAC STRIP (06/23/2023 1:59 PM CDT) Scanner OTHER * ECHO TTE LIMITED W CONTRAST W COLOR W DOPPLER (06/23/2023 12:47 PM CDT) AORTIC VALVE MEAN PG 6 mmHg LVEDD 5.5 cm EJECTION FRACTION 55 - 60% Anatomical Region Laterality Modality Ultrasound, Othe r 06/23/2023 11:5 1 AM CDT Narrative 06/23/2023 1:21 PM CDT ECHOCARDIOGRAM ELINOR GUTHRIE ?Accession#: ?? [id number] : ?1950 73 years Study Date: ?? 06/23/2023 11:51:27 AM Gender: M ? BP: ? 142/72 mmHg Height: 183.00 cm ? BSA: ?2.50 m? ? ? Weight: 132.00 kg ? Tech: ? MBW ?Referring MD: LUCIO ARMANDO Site: ? [facility] ([place]) Reading Location: [facility] Patient Location: Inpatient. Procedure: Limited Echo w/ Contrast, Color Doppler and Limited Spectral Doppler. Indication for study: TIA Cardiac Rhythm: Atrial fibrillation with slow ventricular response.Study quality: Fair. Imaging limitations: This study was subject to imaging limitations due to lying in a supine position and body habitus. Final Impressions: Limited Echocardiogram performed 1. Normal LV size (upper limit of normal), moderately increased wall thickness, normal global systolic function with an estimated EF of 55%. 2. Severely enlarged left atrium (unchanged compared to prior echo) 3. Right ventricular cavity size is normal, global systolic RV function is normal. 4. The aortic valve is sclerotic, mild stenosis and mild regurgitation. 5. The mitral valve is sclerotic, mild mitral regurgitation. 6. Echo contrast was administered to enhance visualization of all left ventricular segments. 7. No pericardial effusion. Chamber Sizes and Function Normal left ventricular size, moderately increased wall thickness, normal global systolic function with an estimated EF of 55 - 60%. No definite resting regional wall motion abnormality seen. Left atrial size is severely enlarged. Right ventricular cavity size is normal, global systolic RV function is normal. RV wall thickness is normal. Valves, RV Pressures and Diastolic Function The aortic valve is sclerotic, mild stenosis and mild regurgitation. The mitral valve is sclerotic, mild mitral regurgitation. The mitral valve peak velocity is 1.14 m/s and the mean gradient is 1.2 mmHg. The tricuspid valve is normal in structure. Tricuspid regurgitation is mild. Unable to assess right ventricular systolic pressure. Masses, Effusion, Shunts There is no pericardial effusion. MEASUREMENTS AND CALCULATIONS 2-D Measurements and LV Function: LVID (d) 5.5 cm LV FS% (2D) ?? 40 % LVID (s) 3.3 cm HR ?43 bpm IVS (d) ??1.5 cm RV Max 4C (d) 3.7 cm LVPW (d) 1.3 cm LA ? 5.5 cm Aortic Valve: Vmax ? 1.7 m/s Max PG ?11 mmHg AI P 1/2 550 msec VTI ?0.41 m ??Mean PG ?? 6 mmHg LVOT V max 0.8 m/s Dim Index 0.43 LVOT VTI ?? 0.18 m Mitral Valve: MV Mean G 1 mmHg MV VTI ?0.33 m Tricuspid Valve and estimated PA pressures: TAPSE 1.6 cm Contrast documentation: 4 ml diluted Definity, lot #[id number], [facility]# [id number] was administered peripherally to enhance visualization of all left ventricular segments. . This study was interpreted by an [facility] accredited facility. CC: Cielo Weaver, Nadiya Owen, Momo Forbes. ??Final ?? Procedure Note Dionicio Callahan MD - 06/23/2023 ECHOCARDIOGRAM ELINOR GUTHRIE : 1950 73 years Study Date: 06/23/2023 11:51:27 AM Gender: M BP: 142/72 mmHg Height: 183.00 cm BSA: 2.50 m? ? ? Weight: 132.00 kg Tech: BENSON Referring MD: LUCIO ARMANDO Site: [facility] Reading Location: [facility] Patient Location: Inpatient. Procedure: Limited Echo w/ Contrast, Color Doppler and Limited SpectralDoppler. Indication for study: TIA Cardiac Rhythm: Atrial fibrillation with slow ventricular response.Studyquality: Fair. Imaging limitations: This study was subject to imaging limitations due tolying in a supine position and body habitus. Final Impressions: Limited Echocardiogram performed 1. Normal LV size (upper limit of normal), moderately increased wallthickness, normal global systolic function with an estimated EF of 55%. 2. Severely enlarged left atrium (unchanged compared to prior echo) 3. Right ventricular cavity size is normal, global systolic RV functionis normal. 4. The aortic valve is sclerotic, mild stenosis and mild regurgitation. 5. The mitral valve is sclerotic, mild mitral regurgitation. 6. Echo contrast was administered to enhance visualization of all leftventricular segments. 7. No pericardial effusion. Chamber Sizes and Function Normal left ventricular size, moderately increased wall thickness, normalglobal systolic function with an estimated EF of 55 - 60%. No definiteresting regional wall motion abnormality seen. Left atrial size isseverely enlarged. Right ventricular cavity size is normal, globalsystolic RV function is normal. RV wall thickness is normal. Valves, RV Pressures and Diastolic Function The aortic valve is sclerotic, mild stenosis and mild regurgitation. Themitral valve is sclerotic, mild mitral regurgitation. The mitral valvepeak velocity is 1.14 m/s and the mean gradient is 1.2 mmHg. The tricuspidvalve is normal in structure. Tricuspid regurgitation is mild. Unable toassess right ventricular systolic pressure. Masses, Effusion, Shunts There is no pericardial effusion. MEASUREMENTS AND CALCULATIONS 2-D Measurements and LV Function: LVID (d) 5.5 cm LV FS% (2D) 40 % LVID (s) 3.3 cm HR 43 bpm IVS (d) 1.5 cm RV Max 4C (d) 3.7 cm LVPW (d) 1.3 cm LA 5.5 cm Aortic Valve: Vmax 1.7 m/s Max PG 11 mmHg AI P 1/2 550 msec VTI 0.41 m Mean PG 6 mmHg LVOT V max 0.8 m/s Dim Index 0.43 LVOT VTI 0.18 m Mitral Valve: MV Mean G 1 mmHg MV VTI 0.33 m Tricuspid Valve and estimated PA pressures: TAPSE 1.6 cm Contrast documentation: 4 ml diluted Definity, lot #[id number], [facility]#[id number] was administered peripherally to enhance visualization of allleft ventricular segments. . This study was interpreted by an [facility] accredited facility. CC: Cielo Weaver, Nadiya Owen, Momo Forbes. Final Lucio Tr DO ECHO ORD * SCAN-CARDIAC STRIP (06/23/2023 10:22 AM CDT) Scanner OTHER * SCAN-CARDIAC STRIP (06/23/2023 10:18 AM CDT) Scanner OTHER * SCAN-CARDIAC STRIP (06/23/2023 9:23 AM CDT) Scanner OTHER * SCAN-CARDIAC STRIP (06/23/2023 8:14 AM CDT) Scanner OTHER * SCAN-CARDIAC STRIP (06/23/2023 6:34 AM CDT) Scanner OTHER * (ABNORMAL) Hemoglobin A1C Screening (06/23/2023 5:58 AM CDT) HEMOGLOBIN A1C SCREENING 9.1(H) <=6.4 % 06/23/2023 7:15 AM CDT [facility] Blood BLOOD SPECIMEN / Unknown Venipuncture / Unknown 06/23/2023 5:58 AM CDT 06/23/2023 6:05 AM CDT Narrative [facility] - 06/23/2023 7:15 AM CDT ? (<5.7%) ?Normal ? (5.7% to 6.4%) ? Indicates prediabetes ? (>=6.5%) ? Confirms diabetes Falsely low levels may be seen with: Recent Transfusion, Recent Significant Blood Loss, Hemolytic Diseases, or Falsely elevated levels may be seen with: Untreated Anemias, Splenectomy Lucio Armando DO CHEMISTRY [facility] [address] [place] [address] * (ABNORMAL) Lipid Panel (06/23/2023 5:58 AM CDT) CHOLESTEROL,TOTAL 76(L) 100 - 199 mg/dL 06/23/2023 6:35 AM CDT [facility] Comment: Cholesterol, Total Reference Ranges Desirable <200 mg/dL Borderline 200-239 mg/dL High >=240 mg/dL TRIGLYCERIDES 83 <150 mg/dL 06/23/2023 6:35 AM CDT [facility] HDL CHOLESTEROL 36(L) >40 mg/dL 6:35 AM CDT [facility] NON-HDL CHOLESTEROL 40 <145 mg/dl 06/23/2023 6:35 AM CDT [facility] CHOL/HDL RATIO 2.11 <4.50 06/23/2023 6:35 AM CDT [facility] LDL CHOLESTEROL 23 <=130 mg/dL 06/23/2023 6:35 AM CDT [facility] VLDL CHOLESTEROL 17 <=30 mg/dL 06/23/2023 6:35 AM CDT [facility] PROVIDER ORDERED STATUS RANDOM 06/23/2023 6:35 AM CDT [facility] Blood BLOOD SPECIMEN / Unknown Venipuncture / Unknown 06/23/2023 5:58 AM CDT 06/23/2023 6:05 AM CDT Lucio Armando DO CHEMISTRY [facility] [address] [place] [address] * MR ANGIO STROKE HEAD WO AND NECK WO AND MR BRAIN WO (06/22/2023 6:32 PM CDT) Anatomical Region Laterality Modality BRAIN, HEAD Magnetic Resonan ce 06/22/2023 6:41 PM CDT Addenda Addendum by Evelio Oliva MD on 06/22/2023 6:42 PM CDT For Patients: ??As a result of the Century Cures Act, medical imaging exams and procedure reports are released immediately into your electronic medical record. ??You may view this report before your referring provider. ?? If you have questions, please contact your health care provider. Dictation for this exam included within the brain MRI report from the same date. Dictated by Evelio Oliva MD @ 06/22/2023 6:42:21 PM (Electronically Signed) Addendum by Evelio Oliva MD on 06/22/2023 6:42 PM CDT For Patients: ??As a result of the Cures Act, medical imaging exams and procedure reports are released immediately into your electronic medical record. ??You may view this report before your referring provider. ?? If you have questions, please contact your health care provider. Dictation for this exam included within the brain MRI report from the same date. Dictated by Evelio Oliva MD @ 06/22/2023 6:42:06 PM (Electronically Signed) Impressions 06/22/2023 6:41 PM CDT MRI Head: 1. No acute ischemia or other acute intracranial pathology. 2. Mild chronic microvascular ischemic changes and mild to moderate generalized parenchymal volume loss. MRA Head: 1. No proximal large vessel occlusion or flow limiting stenosis involving the major intracranial arteries. MRA Neck: 1. No flow-limiting stenosis involving the imaged portions of the cervical arteries. Dictated by Evelio Oliva MD @ 06/22/2023 6:41:34 PM (Electronically Signed) Narrative 06/22/2023 6:41 PM CDT For Patients: ??As a result of the Cures Act, medical imaging exams and procedure reports are released immediately into your electronic medical record. ??You may view this report before your referring provider. ??If you have questions, please contact your health care provider. INDICATION: TIAs. TECHNIQUE: Brain MRI without contrast. The following sequences were obtained: Sagittal T1 weighted sequence. DWI and ADC mapping sequences. Axial FLAIR, SWI or GRE and HUSAM T2 weighted sequences. Magnetic Resonance Angiography of the head and neck with and without contrast. The following sequences were obtained: 3D Time of Flight MRA sequence of the intracranial circulation. 3D Time of Flight and gadolinium bolus MRA sequences of the neck with all measurements are based on NASCET criteria. Maximum Intensity Reconstructions are provided. COMPARISON: Head CT from 06/22/2023. FINDINGS: MRI Head: No acute infarction. No acute or chronic intracranial blood products. Scattered FLAIR hyperintensities throughout the supratentorial white matter, typical for chronic microvascular ischemic change. Mild generalized parenchymal volume loss. No hydrocephalus or extra-axial collections. Partially empty sella. Parasellar structures and optic chiasm are normal. Posterior fossa is normal. The orbital contents are normal. No calvarial or skull base marrow signal abnormality. No obstructive sinus disease. No extracranial soft tissue findings. MRA Head: No proximal large vessel occlusion. The anterior cerebral arteries are patent. The middle cerebral arteries are patent. The posterior cerebral arteries are patent. The intradural vertebral arteries and basilar artery are patent. The intracranial internal carotid arteries are patent. No aneurysm or high flow vascular malformation. MRA Neck: The visualized portions of the common/internal carotid arteries are patent. The visualized portions of the vertebral arteries are patent. Procedure Note Evelio Oliva MD - 06/22/2023 For Patients: As a result of the Cures Act, medical imagingexams and procedure reports are released immediately into your electronicmedical record. You may view this report before your referring provider.If you have questions, please contact your health care provider. INDICATION: TIAs. TECHNIQUE: Brain MRI without contrast. The following sequences were obtained: Sagittal T1 weighted sequence. DWI and ADC mapping sequences. Axial FLAIR, SWI or GRE and HUSAM T2 weighted sequences. Magnetic Resonance Angiography of the head and neck with and withoutcontrast. The following sequences were obtained: 3D Time of Flight MRA sequence of the intracranial circulation. 3D Time of Flight and gadolinium bolus MRA sequences of the neck with allmeasurements are based on NASCET criteria. Maximum Intensity Reconstructions are provided. COMPARISON: Head CT from 06/22/2023. FINDINGS: MRI Head: No acute infarction. No acute or chronic intracranial blood products.Scattered FLAIR hyperintensities throughout the supratentorial whitematter, typical for chronic microvascular ischemic change. Mildgeneralized parenchymal volume loss. No hydrocephalus or extra-axialcollections. Partially empty sella. Parasellar structures and optic chiasmare normal. Posterior fossa is normal. The orbital contents are normal. No calvarial or skull base marrow signalabnormality. No obstructive sinus disease. No extracranial soft tissuefindings. MRA Head: No proximal large vessel occlusion. The anterior cerebral arteries arepatent. The middle cerebral arteries are patent. The posterior cerebralarteries are patent. The intradural vertebral arteries and basilar arteryare patent. The intracranial internal carotid arteries are patent. Noaneurysm or high flow vascular malformation. MRA Neck: The visualized portions of the common/internal carotid arteries arepatent. The visualized portions of the vertebral arteries are patent. IMPRESSION: MRI Head: 1. No acute ischemia or other acute intracranial pathology. 2. Mild chronic microvascular ischemic changes and mild to moderategeneralized parenchymal volume loss. MRA Head: 1. No proximal large vessel occlusion or flow limiting stenosis involvingthe major intracranial arteries. MRA Neck: 1. No flow-limiting stenosis involving the imaged portions of the cervicalarteries. Dictated by Evelio Oliva MD @ 06/22/2023 6:41:34 PM (Electronically Signed) Gema Valdovinos MD MR * CT HEAD STROKE PROTOCOL WITHOUT CONTRAST (06/22/2023 4:06 PM CDT) Anatomical Region Laterality Modality BRAIN Computed Tomogra phy 06/22/2023 4:32 PM CDT Addenda Addendum by Jerica Steel MD on 06/22/2023 8:24 PM CDT INDICATION: Right-sided weakness, facial droop. TECHNIQUE: CT head without contrast. COMPARISON: CT head dated 01/14/2023. FINDINGS: Cerebral parenchyma: No evidence of acute territorial infarct. No acute intraparenchymal hemorrhage. Stable punctate calcifications in the left basal ganglia. No significant mass effect/midline shift. Normal smith-white matter differentiation. Extra-axial spaces: No extra-axial collection or hemorrhage. Ventricles: Unremarkable. Calvarium: Intact. Visualized paranasal sinuses/mastoid air cells: Grossly clear. Posterior fossa: No cerebellar tonsillar herniation. Visualized orbits: Thinning of the bilateral lens. No acute abnormality. IMPRESSION: No acute intracranial abnormality. Please note that all CT scans at this facility use dose modulation, iterative reconstruction, and/or weight-based dosing when appropriate to reduce radiation dose to as low as reasonably achievable. Dictated by Jerica Steel MD @ 06/22/2023 4:32:31 PM ----- ADDENDUM ----- Report receipt confirmed with Dr. Lainez at 16:39 on 06/22/2023. Dictated by Jerica Steel MD @ Jun ??1 2022 ??8:24PM (Electronically Signed) Impressions 06/22/2023 4:32 PM CDT No acute intracranial abnormality. Please note that all CT scans at this facility use dose modulation, iterative reconstruction, and/or weight-based dosing when appropriate to reduce radiation dose to as low as reasonably achievable. Dictated by eJrica Steel MD @ 06/22/2023 4:32:31 PM (Electronically Signed) Narrative 06/22/2023 4:32 PM CDT For Patients: ??As a result of the Cures Act, medical imaging exams and procedure reports are released immediately into your electronic medical record. ??You may view this report before your referring provider. ??If you have questions, please contact your health care provider. INDICATION: Right-sided weakness, facial droop. TECHNIQUE: CT head without contrast. COMPARISON: CT head dated 01/14/2023. FINDINGS: Cerebral parenchyma: No evidence of acute territorial infarct. No acute intraparenchymal hemorrhage. Stable punctate calcifications in the left basal ganglia. No significant mass effect/midline shift. Normal smith-white matter differentiation. Extra-axial spaces: No extra-axial collection or hemorrhage. Ventricles: Unremarkable. Calvarium: Intact. Visualized paranasal sinuses/mastoid air cells: Grossly clear. Posterior fossa: No cerebellar tonsillar herniation. Visualized orbits: Thinning of the bilateral lens. No acute abnormality. Procedure Note Jerica Steel MD - 06/22/2023 For Patients: As a result of the Cures Act, medical imagingexams and procedure reports are released immediately into your electronicmedical record. You may view this report before your referring provider.If you have questions, please contact your health care provider. INDICATION: Right-sided weakness, facial droop. TECHNIQUE: CT head without contrast. COMPARISON: CT head dated 01/14/2023. FINDINGS: Cerebral parenchyma: No evidence of acute territorial infarct. No acuteintraparenchymal hemorrhage. Stable punctate calcifications in the leftbasal ganglia. No significant mass effect/midline shift. Normal smith-whitematter differentiation. Extra-axial spaces: No extra-axial collection or hemorrhage. Ventricles: Unremarkable. Calvarium: Intact. Visualized paranasal sinuses/mastoid air cells: Grossly clear. Posterior fossa: No cerebellar tonsillar herniation. Visualized orbits: Thinning of the bilateral lens. No acute abnormality. IMPRESSION: No acute intracranial abnormality. Please note that all CT scans at this facility use dose modulation,iterative reconstruction, and/or weight-based dosing when appropriate toreduce radiation dose to as low as reasonably achievable. Dictated by Jerica Steel MD @ 06/22/2023 4:32:31 PM (Electronically Signed) Gema Valdovinos MD CT * RED CELL MORPHOLOGY (06/22/2023 2:51 PM CDT) RBC COMMENT RBC morphology appears normal RBC morphology appears normal, RBC morphology within normal limits for newborns. 06/22/2023 3:42 PM CDT [facility] Blood BLOOD SPECIMEN / Unknown Venipuncture / Unknown 06/22/2023 2:51 PM CDT 06/22/2023 2:59 PM CDT Gema Valdovinos MD HEMATOLOGY [facility] [address] [place] [address] * (ABNORMAL) CBC W PLT NO DIFF (06/22/2023 2:51 PM CDT) WHITE BLOOD COUNT 6.7 4.5 - 11.0 thou/cu mm 06/22/2023 3:42 PM CDT [facility] RED BLOOD COUNT 4.81 4.30 - 5.90 mil/cu mm 06/22/2023 3:42 PM T [facility] HEMOGLOBIN 13.0(L) 13.5 - 17.5 g/dL 06/22/2023 3:42 PM T [facility] HEMATOCRIT 40.5 37.0 - 53.0 % 06/22/2023 3:42 PM T [facility] MCV 84 80 - 100 fL 06/22/2023 3:42 PM CDT [facility] MCH 27.0 26.0 - 34.0 pg 06/22/2023 3:42 PM CDT [facility] MCHC 32.1 32.0 - 36.0 g/dL 06/22/2023 3:42 PM T [facility] RDW 15.2 11.5 - 15.5 % 06/22/2023 3:42 PM CDT [facility] PLATELET COUNT 82(L) 140 - 440 thou/cu mm 06/22/2023 3:42 PM CDT [facility] MPV 11.6(H) 6.5 - 11.0 fL 06/22/2023 3:42 PM CDT [facility] Blood BLOOD SPECIMEN / Unknown Venipuncture / Unknown 06/22/2023 2:51 PM CDT 06/22/2023 2:59 PM CDT Gema Valdovinos MD HEMATOLOGY [facility] [address] [place] [address] * APTT (06/22/2023 2:51 PM CDT) APTT 30 25 - 33 sec 06/22/2023 4:53 PM CDT [facility] Blood BLOOD SPECIMEN / Unknown Venipuncture / Unknown 06/22/2023 2:51 PM CDT 06/22/2023 2:59 PM CDT Narrative [facility] - 06/22/2023 4:53 PM CDT Therapeutic Range: 78-109 seconds Gema Valdovinos MD HEMATOLOGY [facility] [address] [place] [address] * (ABNORMAL) BASIC METABOLIC PANEL (06/22/2023 2:51 PM CDT) SODIUM 139 136 - 145 mmol/L 06/22/2023 4:29 PM CDT [facility] POTASSIUM 4.1 3.5 - 5.1 mmol/L 06/22/2023 4:29 PM CDT [facility] CHLORIDE 105 98 - 107 mmol/L 06/22/2023 4:29 PM CDT [facility] CO2,TOTAL 25 22 - 29 mmol/L 06/22/2023 4:29 PM [facility] ANION GAP 9 5 - 18 06/22/2023 4:29 PM [facility] GLUCOSE 98 70 - 99 mg/dL 06/22/2023 4:29 PM [facility] CALCIUM 9.7 8.8 - 10.2 mg/dL 06/22/2023 4:29 PM [facility] BUN 31(H) 8 - 23 mg/dL 06/22/2023 4:29 PM [facility] CREATININE 2.80(H) 0.70 - 1.20 mg/dL 06/22/2023 4:29 PM [facility] BUN/CREAT RATIO 11 - 4:29 PM [facility] eGFR 23(L) >90 mL/min/1.7 3m2 06/22/2023 4:29 PM [facility] Comment:As of 2021, eG FR is calculated by the CKD-EPI creatinine equation without race adjustment. ??eGFR can be influenced by muscle mass, exercise, and diet. ??The reported eGFR is an estimation only and is only applicable if the renal function is stable. Blood BLOOD SPECIMEN / Unknown Venipuncture / Unknown 06/22/2023 2:51 PM CDT 06/22/2023 2:59 PM CDT Gema Valdovinos MD CHEMISTRY Performing Organization Address [facility]/State/[facility] Co de Phone Number [facility] [address] [place] [address] from Last 3 Months Additional Health Concerns Infection Onset Date Last Indicated MRSA Comment:Order Contact Precautions. Nares surveillance cultures needed to clear patient if <12 months since positive culture. If >12 months since positive culture, precautions can be discontinued if patient has no MRSA risk factors. 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 right check +MRSA 06/30/2023 ankle exclusions for contact precaution discontinuation (if > 12 months since positive culture): resides in acute/terminologist care, receiving hemodialysis, has chronic open wounds/skin damage, has long-term percutaneous indwelling medical devices Exclusions for nares collection (if <12 months since positive culture) include all of the previous exclusions plus patients on antibiotics 7 days prior to collection 06/30/2023 08/24/2023 Advance Directives Documents on File Type Date Recorded Patient Rabbit Dresser Expl anation Healthcare Directive 06/23/2023 023 POLST 09/26/2020 Latest Code Status on File Code Status Date Activated Date Inactivated Comments Full Code 08/24/2023 7:11 AM 08/24/2023 3:18 PM Question Answer Comments Code Status Discussion: Unable to Assess Preferences, Provider to review later Code Status History Code Status Date Activated Date Inactivated Comments Full Code 06/26/2023 4:38 PM 06/29/2023 1:25 PM Question Answer Comments Code Status Discussion: Reviewed Preferences Full Code 06/22/2023 8:24 PM 06/24/2023 8:05 PM Question Answer Comments Code Status Discussion: Reviewed Preferences Full Code 06/15/2022 1:22 AM 06/20/2022 3:42 PM Question Answer Comments Code Status Discussion: Reviewed Preferences Full Code 06/02/2022 5:13 AM 06/05/2022 3:55 PM Question Answer Comments Code Status Discussion: Reviewed Preferences Care Teams Access Director Relationship Specialty Start Date End Date Momo Forbes MD [address] [place] [address] PCP - General Family Practice 01/22/21 [facility] [address] [place] [address] 06/25/23
--- OUTSIDE RECORDS SUMMARY | 2023-08-31 13:08 | XMS_ITS | Encounter Summary ---
Author Name Unknown Organization [facility] Address [address] [place] [address] Care Team Providers Care Process Owner Name Role Phone Elsewhere, Pcp Primary Care Provider Unavailabl e Encounter Details Date Type Department Care Team (Latest Contact Info) Description 08/31/2022 12:23 PM BEARING PRESS MACHINE OPERATOR - 08/31/2022 11:59 PM BEARING PRESS MACHINE OPERATOR Hospital Encounter Department of Laboratory Medicine in [address] [phone] Qasim Jade M.D. [address] [phone] High Risk Medication Discharge Disposition: Home or Self Care Social [...] mg DR tablet 81 mg daily. 0 07/01/2022/08/2022 carvediloL (COREG) 25 mg tablet Take 25 [...] mouth at bedtime. 0 07/10/2022 07/01/2023 insulin detemir U-100 (Levemir FlexPen) 100 [...] st Contact Info) Description 09/01/2023 11:30 AM BEARING PRESS MACHINE OPERATOR Office Visit Department of Urology in [place], [place] [address], [place] [phone] Antonia Krause APRN, C.N.P. [address] [phone] documented as of this encounter Procedures Procedure Name Priority Date/Time Associated Diagnosis Comments TACROLIMUS LEVEL, B Routine 08/31/2022 1 1:20 AM BEARING PRESS MACHINE OPERATOR High Risk Medication BASIC METABOLIC PANEL, S/P Routine 08/31/2022 11:20 AM BEARING PRESS MACHINE OPERATOR High Risk Medication documented in this encounter Results * (ABNORMAL) Basic Metabolic Panel (08/31/2022 11:20 AM BEARING PRESS MACHINE OPERATOR) Pathologist [facility] Potassium, P 3.4(L) 3.6 - 5.2 mmol/L 08/31/2022 1:22 PM BEARING PRESS MACHINE OPERATOR [facility] Sodium, P 142 135 - 145 mmol/L 08/31/2022 1:22 PM BEARING PRESS MACHINE OPERATOR [facility] Chloride, P 104 98 - 107 mmol/L 08/31/2022 1:22 PM BEARING PRESS MACHINE OPERATOR [facility] Bicarbonate, P 26 22 - 29 mmol/L 08/31/2022 1:22 PM BEARING PRESS MACHINE OPERATOR [facility] Anion Gap, P 12 7 - 15 08/31/2022 1:22 PM BEARING PRESS MACHINE OPERATOR [facility] BUN (Blood Urea Nitrogen), P 42(H) 8 - 24 mg/dL 08/31/2022 1:22 PM BEARING PRESS MACHINE OPERATOR [facility] Creatinine 2.57(H) 0.74 - 1.35 mg/dL 08/31/2022 1:22 PM BEARING PRESS MACHINE OPERATOR [facility] Estimated GFR (eGFR) 26(L) >=60 mL/min/BSA 08/31/2022 1:22 PM BEARING PRESS MACHINE OPERATOR [facility] Comment: Estimated GFR calculated using the 2020 CKD_EPI creatinine equation. Calcium, Total, P 9.7 8.8 - 10.2 mg/dL 08/31/2022 1:22 PM BEARING PRESS MACHINE OPERATOR [facility] Glucose, P 151(H) 70 - 140 mg/dL 08/31/2022 1:22 PM BEARING PRESS MACHINE OPERATOR [facility] Blood (Blood, Venous) 08/31/2022 11:20 AM BEARING PRESS MACHINE OPERATOR 08/31/2022 1:07 PM BEARING PRESS MACHINE OPERATOR Qasim Jade M.D. LAB BLOOD ADD-ON [facility] [address] [place] [address], [facility] CNFL [facility] in [address] [address] * Tacrolimus, B (08/31/2022 11:20 AM BEARING PRESS MACHINE OPERATOR) Tacrolimus, B 6.7 5.0-15.0 (Trough) ng/mL 09/01/2022 10:07 AM BEARING PRESS MACHINE OPERATOR [facility] Comment: ----ADDITIONAL INFORMATION---- Target steady-state trough concentrations vary depending on the type of transplant, concomitant immunosuppression, clinical/institutional protocols, and time post-transplant. Results should be interpreted in conjunction with this clinical information and any physical signs/symptoms of rejection/toxicity. Testing performed by Liquid Chromatography-Tandem Mass Spectrometry (LC-MS/MS). This test was developed and its performance characteristics determined by [facility] in a manner consistent with CLIA requirements. This test has not been cleared or approved by the U.S. Food and Drug Administration. Blood (Blood, Venous) 08/31/2022 11:20 AM BEARING PRESS MACHINE OPERATOR 09/01/2022 6:59 AM BEARING PRESS MACHINE OPERATOR Qasim Jade M.D. LAB BLOOD NON ADD-O N Performing Organization Address City/State/[facility] Co de Phone Number [facility] [address] [place] [address] [facility] [address] [place] [address] documented in this encounter Visit Diagnoses Diagnosis High Risk Medication documented in this encounter Additional Health Concerns Infection Onset Date Last Indicated Resolved Time MRSA Comment:+MRSA-urine (straight cath): 08/03/22 08/03/2022 08/03/2022 11/01/2022 4:45 AM C DT documented as of this encounter Care Teams Process Owner Relationship Specialty Start Date End Date Elsewhere, Pcp PCP - General Internal Medicine 08/12/22 06/29/23 documented as of this encounter
--- OUTSIDE RECORDS SUMMARY | 2023-08-31 13:08 | XMS_ITS | Encounter Summary ---
Author Name Unknown Organization [facility] Address [address] [place] [address] Care Team Providers Care Bowl Turner Name Role Phone Elsewhere, Pcp Primary Care Provider Unavailabl e Encounter Details Date Type Department Care Team (Latest Contact Info) Description 09/03/2022 1:46 PM KNOCK UP ASSEMBLER - 09/03/2022 11:59 PM KNOCK UP ASSEMBLER Hospital Encounter Department of Laboratory Medicine in [address] [phone] Qasim Jade M.D. 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 documented in this encounter Results * (ABNORMAL) Microscopic Manual (09/03/2022 4:27 PM KNOCK UP ASSEMBLER) White Blood Cells Occ-3 /hpf 09/03/2022 5:15 PM KNOCK UP ASSEMBLER [facility] Comment: ----REFERENCE VALUE---- Males: 0-3 Females: 0-10 Unknown: 0-10 Red Blood Cells Occ-2 0 - 2 /hpf 09/03/2022 5:15 PM KNOCK UP ASSEMBLER [facility] Dysmorphic Red Blood Cells <=25 <=25 % 09/03/2022 5:15 PM KNOCK UP ASSEMBLER [facility] Hyaline Casts 1-3 /lpf 09/03/2022 5:15 PM KNOCK UP ASSEMBLER [facility] Crystals Calcium Oxalate(A) None Seen /lpf 09/03/2022 5:15 PM KNOCK UP ASSEMBLER CN[facility] Bacteria Present(A) None Seen 09/03/2022 5:15 PM KNOCK UP ASSEMBLER CNFL Urine 09/03/2022 4:27 PM KNOCK UP ASSEMBLER 09/03/2022 4:27 PM KNOCK UP ASSEMBLER Soft Results Interface LAB URINE ORDERAB LES [facility] [address] [place] [address], [facility] CN[facility] in [address] [address] * (ABNORMAL) Urinalysis with Microscopic if Indicated (09/03/2022 4:27 PM KNOCK UP ASSEMBLER) Source Urine, Urine, Straight Catheter 09/03/2022 4:27 PM KNOCK UP ASSEMBLER [facility] Clarity Clear Clear 09/03/2022 4:43 PM KNOCK UP ASSEMBLER [facility] Color Yellow 09/03/2022 4:43 PM KNOCK UP ASSEMBLER [facility] Comment: ----REFERENCE VALUE---- Colorless Yellow Haylie Blood Negative Negative 09/03/2022 4:43 PM KNOCK UP ASSEMBLER CNFL Nitrite Negative Negative 09/03/2022 4:43 PM KNOCK UP ASSEMBLER CN[facility] Leukocyte Esterase Negative Negative 09/03/2022 4:43 PM KNOCK UP ASSEMBLER CN[facility] Protein 100(A) mg/dL 09/03/2022 4:43 PM KNOCK UP ASSEMBLER [facility] Comment: ----REFERENCE VALUE---- Negative Trace Glucose Negative Negative mg/dL 09/03/2022 4:43 PM KNOCK UP ASSEMBLER CNFL Ketones, QI(U) Negative Negative mg/dL 09/03/2022 4:43 PM KNOCK UP ASSEMBLER CNFL Bilirubin Negative Negative 09/03/2022 4:43 PM KNOCK UP ASSEMBLER CN[facility] pH 5.5 5.0 - 8.0 09/03/2022 4:43 PM KNOCK UP ASSEMBLER CNFL Specific [place] 1.015 1.001 - 1.035 09/03/2022 4:43 PM KNOCK UP ASSEMBLER CNFL Urobilinogen 0.2 0.2 - 1.0 mg/dL 09/03/2022 4:43 PM KNOCK UP ASSEMBLER CNFL Urine (Urine, Straight Catheter) 09/03/2022 4:27 PM KNOCK UP ASSEMBLER 09/03/2022 4:27 PM KNOCK UP ASSEMBLER Erin Navarro LAB URINE ORDERABLE S [facility] [address] [place] [address], [facility] CNFL [facility] [place] [address] * Bacterial Culture, Aerobic + Susc, Urine (09/03/2022 4:27 PM KNOCK UP ASSEMBLER) Urine Culture No growth after 1 day of incubation. 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
--- OUTSIDE RECORDS SUMMARY | 2023-08-31 13:09 | XMS_ITS | Encounter Summary ---
Author Name Unknown Organization [facility] Address [address] [place] [address]. [place] [address] Care Team Providers Care Caustic Loader Name Role Phone Momo Forbes MD Primary Care Provider [phone] Encounter Details Date Type Department Care Team (Late st Contact Info) Description 11/10/2022 Orders Only INTERFACED REPORT Outside, Provider Social History Tobacco Use Types Packs/Day Years Used Date Smoking Tobacco: Former Cigars Q uit: 08/22/2006 Smokeless Tobacco: Never Alcohol Use Standard Drinks/Week Comments Yes 0 (1 standard drink = 0.6 oz pur e alcohol) occasional drink. PHQ-2 Answer Date Recorded PHQ-2 Score 0 08/29/2018 Sex and Gender Information Value Date Recorded Sex Assigned at Not on file Gender Identity Not on file Sexual Orientation Not on file COVID-19 Exposure Response Date Recorded In the last 10 days, have yo u been in contact with someone who was confirmed or suspected to have Coronavirus/COVID-19? No / Unsure 11/08/2022 11:02 AM CDT documented as of this encounter Plan of Treatment Not on file documented as of this encounter Procedures Procedure Name Priority Date/Time Associated Diagnosis Comments HLA RESULT REPORT 11/10/2022 5:18 PM CDT HLA RESULT REPORT 11/10/2022 5:16 PM CDT HLA RESULT REPORT 11/10/2022 5:16 PM CDT documented in this encounter Results * HLA RESULT REPORT (11/10/2022 5:18 PM CDT) Provider Outside LAB - IMMUNOLOGY ORD ERABLES * HLA RESULT REPORT (11/10/2022 5:16 PM CDT) Provider Outside LAB - IMMUNOLOGY ORD ERABLES * HLA RESULT REPORT (11/10/2022 5:16 PM CDT) Provider Outside LAB - IMMUNOLOGY ORD ERABLES documented in this encounter Visit Diagnoses Not on filedocumented in this encounter Care Teams Caustic Loader Relationship Specialty Start Date End Date Momo Forbes MD PCP - General Family Practice 01/02/14 documented as of this encounter
--- OUTSIDE RECORDS SUMMARY | 2023-08-31 13:09 | XMS_ITS | Encounter Summary ---
Author Name Unknown Organization [facility] Address [address] [place] [address]. [place] [address] Care Team Providers Care Sheet Ironworker Name Role Phone Momo Forbes MD Primary Care Provider + [phone] Reason for Visit * Reason Onset Date Comments Transplant 12/03/2022 Encounter Details Date Type Department Care Team (Late st Contact Info) Description 12/03/2022 Telephone [facility] [address] [place] [phone] Gretta Peacock RN Transplant Social History Tobacco Use Types Packs/Day Years [...] suspected to have Coronavirus/COVID-19? No / Unsure 11/30/2022 11:33 AM CDT documented as of this encounter Miscellaneous Notes * Telephone Encounter - Gretta Peacock RN - 12/03/2022 11:32 AM CDT Patient returning phone call from yesterday regarding elevated creatinine. Patient denies UIT symptoms. States he has no difficulty with urination. States it is only rare that he feels he can only dribble while urinating. Patient agreeable to repeating labs with UA/ UC and possibly US if done locally. Will sent orders. Gretta Peacock vp trainingSat Tutor [phone] * Telephone Encounter - Latosha Green - 12/03/2022 11:14 AM CDT Pt returning call documented in this encounter Plan of Treatment Not on file documented as of this encounter Visit Diagnoses Not on filedocumented in this encounter Care Teams Sheet Ironworker Relationship Specialty Start Date End Date Momo Forbes MD PCP - General Family Practice 01/02/14 documented as of this encounter
--- OUTSIDE RECORDS SUMMARY | 2023-08-31 13:09 | XMS_ITS | Encounter Summary ---
Author Name Unknown Organization [facility] Address [address] [place] [address]. [place] [address] Care Team Providers Care Licensed Social Worker Name Role Phone Momo Forbes MD Primary Care Provider Reason for Visit * Reason Onset Date Comments Transplant Care Coordination 12/08/2022 hyp erglycemia Encounter Details Date Type Department Care Team (Late st Contact Info) Description 12/08/2022 Telephone [facility] [address] [place] [phone] Gretta Paecock RN Transplant Care Coordination (hyperglycemia) Social History Tobacco Use Types Packs/Day Years [...] Telephone Encounter - Gretta Peacock RN - 12/08/2022 3:31 PM CDT ISSUE: continued hyperglycemia with transplant labs, BG: >300 on 12/06/2022 OUTCOME: Patient currently at PCP discussing DM control. He is also having Renal tx US today. Will update patient with results- cr did trend down from last week Gretta Peacock mechanical expertAssistant Center Manager [phone] documented in this encounter Plan of Treatment Not on file documented as of this encounter Visit Diagnoses Not on filedocumented in this encounter Care Teams Licensed Social Worker Relationship Specialty Start Date End Date Mmoo Forbes MD PCP - General Family Practice 01/02/14 documented as of this encounter
--- OUTSIDE RECORDS SUMMARY | 2023-08-31 13:09 | XMS_ITS | Encounter Summary ---
Author Name Unknown Organization [facility] Address [address] [place] [address]. [place] [address] Care Team Providers Care Repairer Controller Tester Name Role Phone Momo Forbes MD Primary Care Provider [phone] Encounter Details Date Type Department Care Team (Late st Contact Info) Description 11/30/2022 12:00 PM CDT [facility] [address] [place] [address] Kidney transplanted Social History Tobacco Use Types Packs/Day Years [...] Name Priority Date/Time Associated Diagnosis Comments TACROLIMUS BY TANDEM MASS SPECTROMETRY Routine 11/30/2022 11:33 AM CDT Kidney transplanted BASIC METABOLIC PANEL Routine 11/30/2022 11:33 AM CDT Kidney transplanted CBC WITH PLATELETS Routine 11/30/2022 11 :33 AM CDT Kidney transplanted documented in this encounter Results * (ABNORMAL) CBC with platelets (11/30/2022 11:33 AM CDT) WBC Count 5.3 4.0 - 11.0 10e3/uL 11/30/2022 11:59 AM CDT [facility] RBC Count 5.04 4.40 - 5.90 10e6/uL 11/30/2022 11:59 AM CDT [facility] Hemoglobin 13.4 13.3 - 17.7 g/dL 11/30/2022 11:59 AM CDT [facility] Hematocrit 41.6 40.0 - 53.0 % 11/30/2022 11:59 AM CDT [facility] MCV 83 78 - 100 fL 11/30/2022 11:59 AM CDT [facility] MCH 26.6 26.5 - 33.0 pg 11/30/2022 11:59 AM CDT [facility] MCHC 32.2 31.5 - 36.5 g/dL 11/30/2022 11:59 AM CDT [facility] RDW 15.4(H) 10.0 - 15.0 % 11/30/2022 11:59 AM CDT [facility] Platelet Count 103(L) 150 - 450 10e3/uL 11/30/2022 11:59 AM CDT [facility] Blood BLOOD SPECIMEN / Unknown Venipuncture / Unknown 11/30/2022 11:33 AM CDT 11/30/2022 11:33 AM CDT Joseph Quintana MD LAB - BLOOD SURYA HURST [facility] [address] [facility] (no room number, 1st floor of clinic) [place] [address], [facility] [phone] * (ABNORMAL) Basic metabolic panel (11/30/2022 11:33 AM CDT) Pathologist [facility] Sodium 142 136 - 145 mmol/L 11/30/2022 8:02 PM CDT [facility] Potassium 5.2 3.4 - 5.3 mmol/L 11/30/2022 8:02 PM CDT [facility] Chloride 109(H) 98 - 107 mmol/L 11/30/2022 8:02 PM CDT [facility] Carbon Dioxide (CO2) 22 22 - 29 mmol/L 11/30/2022 8:02 PM CDT [facility] Anion Gap 11 7 - 15 mmol/L 11/30/2022 8:02 PM CDT [facility] Urea Nitrogen 41.7(H) 8.0 - 23.0 mg/dL 11/30/2022 8:02 PM CDT [facility] Creatinine 2.94(H) 0.67 - 1.17 mg/dL 11/30/2022 8:02 PM CDT [facility] Calcium 9.9 8.8 - 10.2 mg/dL 11/30/2022 8:02 PM CDT [facility] Glucose 239(H) 70 - 99 mg/dL 11/30/2022 8:02 PM CDT [facility] GFR Estimate 22(L) >60 mL/min/1.7 3m2 11/30/2022 8:02 PM CDT [facility] Comment:eGFR calculated us2020 CKD-EPI equation. Blood BLOOD SPECIMEN / Unknown Venipuncture / Unknown 11/30/2022 11:33 AM CDT 11/30/2022 11:33 AM CDT Joseph Quintana MD LAB - BLOOD SURYA HURST [facility] [address] [facility], Room [address] [place] [address] [phone] * Tacrolimus by Tandem Mass Spectrometry (11/30/2022 11:33 AM CDT) Pathologist [facility] Tacrolimus by Tandem Mass Spectrometry 7.5 5.0 - 15.0 ug/L 11/30/2022 8:36 PM CDT [facility] Comment: Tacrolimus Reference Range (ug/L): Kidney Transplant: Pediatric 0-3 months post transplant: 10-12 3-6 months post transplant: 8-10 6-12 months post transplant: 6-8 >12 months post transplant: 4-7 Adult 0-6 months post transplant: 8-10 6-12 months post transplant: 6-8 >12 months post transplant: 4-6 >5 years post transplant: 3-5 Heart Transplant: Pediatric 0-12 months post transplant: 10-15 >12 months post transplant: 5-10 Adult 0-3 months post transplant: 10-15 3-6 months post transplant: 8-12 6-12 months post transplant: 6-12 >12 months post transplant: 6-10 Lung Transplant: 0-12 months post transplant: 10-15 >12 months post transplant: 8-12 Liver Transplant: Pediatric 0-3 months post transplant: 10-15 3-6 months post transplant: 8-10 6 months-5 years post transplant: 6-8 >5 years post transplant: 1-3 Adult 0-3 months post transplant: 10-12 3-6 months post transplant: 8-10 >6 months post transplant: 6-8 Pancreas Transplant: 0-6 months post transplant: 8-10 >6 months post transplant: 5-8 Tacrolimus Last Dose Date 11/30/2022 8:36 PM CDT [facility] Comment:Last dose informatio n not provided. Tacrolimus Last Dose Time 11/30/2022 8:36 PM CDT [facility] Comment:Last dose informatio n not provided. Blood BLOOD SPECIMEN / Unknown Venipuncture / Unknown 11/30/2022 11:33 AM CDT 11/30/2022 11:33 AM CDT Narrative [facility] - 11/30/2022 8:36 PM CDT This test was developed and its performance characteristics determined by the [facility], ??Special Chemistry Laboratory. It has not been cleared or approved by the FDA. The laboratory is regulated under CLIA as qualified to perform high-complexity testing. This test is used for clinical purposes. It should not be regarded as investigational or for research. Joseph Quintana MD LAB - BLOOD SURYA HURST [facility] [address] [facility], [address] [place] [address], [facility] [phone] documented in this encounter Visit Diagnoses Diagnosis Kidney transplanted Kidney replaced by transplant documented in this encounter Care Teams Repairer Controller Tester Relationship Specialty Start Date End Date Momo Forbes MD PCP - General Family Practice 01/02/14 documented as of this encounter
--- OUTSIDE RECORDS SUMMARY | 2023-08-31 13:09 | XMS_ITS | Referral Summary ---
Author Name Unknown Organization [facility] Address [address] [place] [address]. [place] [address] Care Team Providers Care Central Office Associate Name Role Phone Momo Forbes MD Primary Care Provider [phone] Encounters Date Type Department Care Team Description 06/28/2023 Telephone [facility] [address] [phone] Satish Gómez MD Call Back from Last 3 Months Allergies Active Allergy Reactions Criticality Noted Date Comments Lisinopril 05/14/2014 Medications Medication Sig Dispensed Refills Start Date End Date Status LANTUS VIAL 100 UNITS/ML SC SOLN Inject 50 Units Subcutaneous every evening 0 Active HumaLOG VIAL 100 UNITS/ML SOLN Inject 20-40 Units Subcutaneous 3 times daily (before meals) Patient reported his dose 10-12 unit 2-3 times daily before meals 0 Active rosuvastatin (CRESTOR) 10 MG tabletIndications:DM (diabetes mellitus), type 2 (H),Other and unspecified hyperlipidemia Take 1 tablet (10 mg) by mouth daily 90 tablet 3 04/22/2015 Active gabapentin 300 MG PO capsule Take 300 mg by mouth 3 times daily 0 10/08/2019 Active carvedilol 6.25 MG PO tabletIndications:HT N, kidney transplant related Take 1 tablet (6.25 mg) by mouth 2 times daily (with meals) 180 tablet 3 10/09/2019 Active losartan 100 MG PO tablet Take 1 tablet (100 mg) by mouth daily 90 tablet 3 10/09/2019 Active mycophenolate (GENERIC EQUIVALENT) 250 MG capsuleIndications:K idney transplanted, d-donor kidney transplant recipient TAKE THREE CAPSULES BY MOUTH TWICE A DAY 180 capsule 11 10/15/2022 Active apixaban ANTICOAGULANT (ELIQUIS) 5 MG tablet Take 2.5 mg by mouth 2 times daily 0 Active levothyroxine (SYNTHROID/LEVOTHROI D) 50 MCG tablet Take 50 mcg by mouth daily 0 Active pantoprazole (PROTONIX) 40 MG EC tablet Take 40 mg by mouth daily 0 Active potassium chloride ER (KLOR-CON M) 20 MEQ CR tablet Take 20 mEq by mouth 2 times daily 0 Active PROGRAF (BRAND) 1 MG capsuleIndications:Aline idolivia transplanted Take 1 capsule (1 mg) by mouth 2 times daily HOLD FOR FUTURE DOSE CHANGES 30 capsule 11 11/11/2022 Active PROGRAF (BRAND) 0.5 MG capsuleIndications:Aline idolivia transplanted, d-donor kidney transplant recipient Take 1 capsule (0.5 mg) by mouth 2 times daily 60 capsule 11 11/29/2022 Active Active Problems Problem Noted Date Diagnosed Date MRSA infection 08/03/2022 08/03/2022 Lung infection 06/01/2022 06/01/2022 Bladder infection 06/01/2022 06/01/2022 Clinical diagnosis of COVID-19 06/01/2022 1 Vitamin D deficiency 03/24/2021 Skin cancer 03/24/2021 Gram-negative bacterial infection 09/18/2020 Bacterial infection 09/17/2020 Kidney replaced by transplant 02/18/2014 Immunosuppression (H24) 02/05/2014 Aftercare following organ transplant 02/05/2014 Atrial fibrillation 02/04/2014 Hyperlipidemia 12/02/2011 Overview: Problem list name updated by automated process. Provider to review Gout 12/02/2011 Peripheral neuropathy 12/02/2011 Diabetic retinopathy 12/02/2011 HTN, kidney transplant related 12/02/2011 Overview: Problem list name updated by automated process. Provider to review DM (diabetes mellitus), type 2 12/02/2011 History of tobacco use 12/02/2011 Thrombocytopenia (H24) 12/02/2011 Malaise and fatigue 12/02/2011 Overview: Problem list name updated by automated process. Provider to review Depression Resolved Problems Problem Noted Date Diagnosed Date Resolved Date End stage renal failure on dialysis 02/02/2014 02/07/2014 ESRD (end stage renal disease) on dialysis 12/10/2013 10/17/2018 Organ transplant candidate 12/07/2013 0 10/17/2018 Screening for cardiovascular condition 12/07/2013 10/17/2018 Overview: Problem list name updated by automated process. Provider to review Anemia 12/02/2011 10/17/2018 Overview: Problem list name updated by automated process. Provider to review Dialysis patient (H24) 12/02/201110/17 Immunizations Name Administration Dates Next Due Hepatitis B Immunity: Titer 02/08/2012 Influenza (High Dose) 3 valent vaccine 0 Influenza (IIV3) PF 07/12/2017,06/22/2013 Pneumococcal 23 valent 05/05/2011 TD,PF 7+ (Tenivac) 01/12/2019 Social History Tobacco Use Types Packs/Day Years Used Date Smoking Tobacco: Former Cigars Q uit: 08/22/2006 Smokeless Tobacco: Never Alcohol Use Standard Drinks/Week Comments Yes 0 (1 standard drink = 0.6 oz pur e alcohol) occasional drink. PHQ-2 Answer Date Recorded PHQ-2 Score 0 08/29/2018 Adolescent Education Answer Date Record ed Getting School Help Needed Not on file 05/16 Sex and Gender Information Value Date Recorded Sex Assigned at Not on file Gender Identity Not on file Sexual Orientation Not on file Last Filed Vital Signs Vital Sign Reading Time Taken Comments Blood Pressure 145/90 11/02/2022 4:45 PM CDT Pulse 64 11/02/2022 4:45 PM CDT Temperature 36.4 ??C (97.6 ??F) 11/02/2022 3:06 PM CD T Respiratory Rate 18 11/02/2022 4:45 PM CDT Oxygen Saturation 96% 11/02/2022 4:45 PM CDT Inhaled Oxygen Concentration - - Weight 136.1 kg (300 lb) 10/22/2022 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 Height 182.9 cm (6') 10/22/2022 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 Body Mass Index 40.69 10/22/2022 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 Plan of Treatment Not on file Medical Devices Explanted Type Area Social Worker Device Identifier Shelf Expiration Date Model / Serial / Lot Stent Ureteral [employer] Renal Transplant [id number] Implanted:Qty: 1 on 02/02/2014 by Migel Merchant MD at [facility] Explanted:Qty: 1 on 04/01/2014 by Celina Cole MD at [facility] Right: Ureter [employer] 11/19/2016 [id number] / / [id number] Insurance Payer Benefit Plan / Group Subscriber ID Effective Dates Phone Address Type MEDICARE MEDICARE [id number] 2011-Prese nt ATTN CLAIMS [address] [place] [place] [address] Medicare BCBS BCBS OF [place] [id number] 2016-Pr ashley nt [address] [address] [place] [address] Indemnity Advance Directives For more information, please contact: [phone] Latest Code Status on File Code Status Date Activated Date Inactivated Comments Full Code 04/01/2014 9:03 AM 10/22/2022 7:29 AM Code Status History Code Status Date Activated Date Inactivated Comments Full Code 02/08/2014 7:12 AM 04/01/2014 9:03 AM Full Code 02/03/2014 12:56 AM 02/08/2014 7:12 AM Care Teams Central Office Associate Relationship Specialty Start Date End Date Momo Forbes MD PCP - General Family Practice 01/02/14
--- OUTSIDE RECORDS SUMMARY | 2023-08-31 13:09 | XMS_ITS | Encounter Summary ---
Author Name Unknown Organization [facility] Address [address] [place] [address]. [place] [address] Care Team Providers Care Supervisor/Port Director Name Role Phone Momo Forbes MD Primary Care Provider + [phone] Reason for Referral * Diagnostic Imaging Ultrasound (Routine) - Pending Review Specialty Diagnoses / Procedures Referred By Contac t Referred To Contact Radiology. Diagnoses Elevated serum creatinine UTI symptoms Procedures US Renal Transplant without Doppler Joseph Quintana MD [address] [place] [address] [address] [facility] [address] [place] [address] Referral ID Status Reason Start Date Expiration Date V isits Requested Visits Authorized [id number] Pending Review 12/02/2022 12/02/2023 1 1 Reason for Visit * Reason Onset Date Comments Transplant Immunosuppression Management 12/02/19 23 Transplant Care Coordination 12/01/2022 Encounter Details Date Type Department Care Team (Late st Contact Info) Description 12/01/2022 Telephone [facility] [address] [facility] 1st [place] [address] Gretta Frias RN Transplant Immunosuppression Management; Transplant Care Coordination Social History Tobacco Use Types Packs/Day Years [...] Miscellaneous Notes * Telephone Encounter - Gretta Frias RN - 12/02/2022 4:33 PM CDT Renal tx US with PVR order placed. Voice message left for patient's with instruction to call US scheduling to schedule US. Asked for CB to confirm message received. Gretta Frias RN Manager Supply [phone] * Telephone Encounter - Gretta Frias RN - 12/01/2022 10:37 AM CDT ISSUE: Creatinine: 2.94, baseline 2.5-2.8, hyperglycemia, B on 11/30/2022 PLAN: Call and assess hydration status. How much water is he drinking per day? Any recent illness, diarrhea, s/s of a UTI, or medication changes? Any increased intake of alcohol or caffeine? Recommend increasing hydration and repeating labs within 1 week. OUTCOME: Drinking ~100oz of sugar free crystal lite lemonade per day Per , Patient states sometimes when he goes to the bathroom he only dribbles Was treated for UTI 11/09 with cipro 250 mg bid x 24 days No Caffeine or alcohol PCP apt 12/01/2022 Tacrolimus level 7.5 on 11/30/2022. Goal 4-6. Current dose 0.5 mg in AM, 0.5 mg in PM Remain on current dose and repeat labs in one week, instructed to obtain UA, UC this week Discussed with patient's , Tete Gretta Frias RN Manager Supply [phone] * Addendum Note - Gretta Frias RN - 12/01/2022 10:33 AM CDTAddended by: GRETTA FRIAS on: 12/02/2022 04:35 PM Modules accepted: Orders documented in this encounter Plan of Treatment Scheduled Orders Name Type Priority Associated Diagnoses Orde r Schedule UA reflex to Microscopic Lab Routine Elevated serum creatinine UTI symptoms Expected: 12/01/2022 (Approximate), Expires: 12/02/2023 Urine Culture Microbiology Routine Elevated serum creatinine UTI symptoms Expected: 12/01/2022 (Approximate), Expires: 12/02/2023 Basic metabolic panel Lab Routine Kidney transplanted Elevated serum creatinine Expected: 12/08/2022 (Approximate), Expires: 12/02/2023 CBC with platelets Lab Routine Kidney transplanted Elevated serum creatinine Expected: 12/08/2022 (Approximate), Expires: 12/02/2023 US Renal Transplant without Doppler Imaging Routine Elevated serum creatinine UTI symptoms Expected: 12/02/2022 (Approximate), Expires: 12/03/2023 documented as of this encounter Visit Diagnoses Diagnosis Elevated serum creatinine- Primary Other nonspecific findings on examination of blood Kidney transplanted Kidney replaced by transplant -donor kidney transplant recipient Kidney replaced by transplant UTI symptoms documented in this encounter Care Teams Supervisor/Port Director Relationship Specialty Start Date End Date Momo Forbes MD PCP - General Family Practice 01/02/14 documented as of this encounter
--- OUTSIDE RECORDS SUMMARY | 2023-08-31 13:09 | XMS_ITS | Encounter Summary ---
Author Name Unknown Organization [place] Address [address] [place] [address]. [place] [address] Care Team Providers Care Membership Correspondent Name Role Phone Momo Forbes MD Primary Care Provider + [phone] Reason for Visit * Reason Onset Date Comments Returning Missed Call 11/10/2022 Encounter Details Date Type Department Care Team (Late st Contact Info) Description 11/10/2022 Telephone [facility] [address] [place] [phone] Gretta Peacock, RN Returning Missed Call Social History Tobacco Use Types Packs/Day Years [...] Telephone Encounter - Gretta Peacock RN - 11/11/2022 11:24 AM CDT Duplicate encounter see note dated 11/09 Gretta Peacock RN Product Craftsman [phone] * Telephone Encounter - Tommie Alcazar - 11/10/2022 4:31 PM CDT Patient Call: 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 Call back [phone]. Call back needed? Yes Return Call Needed Same as documented in contacts section When to return call?: Same day: Route High Priority documented in this encounter Plan of Treatment Not on file documented as of this encounter Visit Diagnoses Not on filedocumented in this encounter Care Teams Membership Correspondent Relationship Specialty Start Date End Date Momo Forbes MD PCP - General Family Practice 01/02/14 documented as of this encounter
--- OUTSIDE RECORDS SUMMARY | 2023-08-31 13:09 | XMS_ITS | Encounter Summary ---
Author Name Unknown Organization [facility] Address [address] [place] [address]. [place] [address] Care Team Providers Care Publicity Expert Name Role Phone Momo Forbes MD Primary Care Provider + [phone] Reason for Visit * Reason Onset Date Comments Refill Request 11/29/2022 Encounter Details Date Type Department Care Team (Late st Contact Info) Description 11/29/2022 Refill [facility] [address] [place] [phone] Gretta Peacock RN Refill Request Social History Tobacco Use Types Packs/Day Years [...] kidney transplant recipient Kidney replaced by transplant documented in this encounter Care Teams Publicity Expert Relationship Specialty Start Date End Date Momo Forbes MD PCP - General Family Practice 01/02/14 documented as of this encounter
--- OUTSIDE RECORDS SUMMARY | 2023-08-31 13:09 | XMS_ITS | Encounter Summary ---
Author Name Unknown Organization [place] Address [address] [address] Care Team Providers Care Medical Secretary Name Role Phone Momo Forbes MD Primary Care Provider [phone] Encounter Details Date Type Department Care Team (Late st Contact Info) Description 12/06/2022 External Order Results [facility] [address] [place] [address] Outside, Provider Social History Tobacco Use Types [...] Procedure Name Priority Date/Time Associated Diagnosis Comments CBC WITH PLATELETS & DIFFERENTIAL Routine 12/06/2022 2:15 PM CDT EXTERNAL CULTURE RESULTS Routine 12/06/2022 2:15 PM CDT ROUTINE UA WITH MICROSCOPIC Routine 12/06/2022 2:15 PM CDT BASIC METABOLIC PANEL Routine 12/06/2022 2:15 PM CDT documented in this encounter Results * External Culture Results (12/06/2022 2:15 PM CDT) Scan Culture Results (External) See Scanned Report NON-INTERFACE D (ONBASE SCANS) Comment:Urine Culture FInal 12/06/2022 2:15 PM CDT Narrative JESSICA PFT - 12/06/2022 2:15 PM CDT Verified by Priscilla Mcdaniel on 12/09/2022. Verified by Priscilla Mcdaniel on 12/10/2022. Verified by Gabby Nayak on 12/10/2022. Satish Gómez MD LABORATORY JESSICA PFT NON-INTERFACED (ONBASE SCANS) * (ABNORMAL) UA with Microscopic (12/06/2022 2:15 PM CDT) Color Urine (External) YEL Yellow ML NON-INTERFAC ED (ONBASE SCANS) Appearance Urine (External) Clear Clear ML NON-INTERFAC ED (ONBASE SCANS) Glucose Urine (External) 2+(A) Negative ML NON-INTERFAC ED (ONBASE SCANS) Bilirubin Urine (External) NEG Negative ML NON-INTERFAC ED (ONBASE SCANS) Ketones Urine (External) NEG Negative ML NON-INTERFAC ED (ONBASE SCANS) Specific Parkin Urine (External) 1.015 1.000 - 1.030 ML NON-INTERFAC ED (ONBASE SCANS) Blood Urine (External) Trace-int act(A) Negative NON-INTERFAC ED (ONBASE SCANS) pH Urine (External) 6.0 5.0 - 8.5 ML NON-INTERFAC ED (ONBASE SCANS) Protein Albumin Ur (External) 3+(A) Negative ML NON-INTERFAC ED (ONBASE SCANS) Urobilinogen (External) 0.2 0.2 - 1.0 ML NON-INTERFAC ED (ONBASE SCANS) Nitrites Urine (External) NEG Negative ML NON-INTERFAC ED (ONBASE SCANS) Leukocyte Esterase Urine (External) NEG Negative ML NON-INTERFAC ED (ONBASE SCANS) RBC Urine (External) 0-2 0 - 2 ML NON-INTERFAC ED (ONBASE SCANS) WBC Urine (External) 0-2 0 - 5 ML NON-INTERFAC ED (ONBASE SCANS) Squamous Epithelial Urine (External) Few None-Few ML NON-INTERFAC ED (ONBASE SCANS) Bacteria Urine (External) None None ML NON-INTERFAC ED (ONBASE SCANS) Urine 12/06/2022 2:15 PM CDT Narrative BREEZE PFT - 12/08/2022 1:00 PM CDT Verified by Ruperto Pepper on 12/08/2022. Patient Reported LAB - URINE ORDERABL ES JESSICA PFT NON-INTERFACED (ONBASE SCANS) * (ABNORMAL) CBC with Platelets & Differential (12/06/2022 2:15 PM CDT) WBC Count (External) 5.43 4.50 - 11.00 K/uL NON-INTERFACE D (ONBASE SCANS) RBC Count (External) 5.36 4.30 - 5.90 m/uL NON-INTERFACE D (ONBASE SCANS) Hemoglobin (External) 14.0 13.5 - 17.5 gm/dL NON-INTERFACE D (ONBASE SCANS) Hematocrit (External) 43.9 37.0 - 53.0 % NON-INTERFACE D (ONBASE SCANS) MCV (External) 82 80 - 100 fL NON-INTERFACE D (ONBASE SCANS) MCH (External) 26 26 - 34 pg NON- INTERFACE D (ONBASE SCANS) MCHC (External) 32 32 - 36 gm/dL NON-INTERFACE D (ONBASE SCANS) Platelet Count (External) 102(L) 140 - 440 K/uL NON-INTERFACE D (ONBASE SCANS) RDW (External) 14.6 11.5 - 15.5 % NON-INTERFACE D (ONBASE SCANS) % Neutrophils (External) 68.5 42.0 - 72.0 % NON-INTERFACE D (ONBASE SCANS) % Lymphocytes (External) 18.4(L) 20 - 44 % NON-INTERFACE D (ONBASE SCANS) % Monocytes (External) 8.5 0.0 - 11.0 % NON-INTERFACE D (ONBASE SCANS) % Eosinophils (External) 3.5 0.0 - 7.0 % NON-INTERFACE D (ONBASE SCANS) % Basophils (External) 0.2 0.0 - 3.0 % NON-INTERFACE D (ONBASE SCANS) Absolute Neutrophils (External) 3.72 1.7 - 7.0 K/uL NON-INTERFACE D (ONBASE SCANS) Absolute Lymphocytes (External) 1.00 0.90 - 2.90 K/uL NON-INTERFACE D (ONBASE SCANS) Absolute Monocytes (External) 0.50 0.00 - 0.90 K/UL NON-INTERFACE D (ONBASE SCANS) Absolute Eosinophils (External) 0.19 0.00 - 0.50 K/uL NON-INTERFACE D (ONBASE SCANS) Absolute Basophils (External) 0.01 0.00 - 0.30 K/uL NON-INTERFACE D (ONBASE SCANS) Blood BLOOD SPECIMEN / Unknown 12/06/2022 2:15 PM CDT Narrative JESSICA PFT - 12/08/2022 1:00 PM CDT Verified by Ruperto Pepper on 12/08/2022. Patient Reported LAB - BLOOD ORDERABL ES [facility]ESS[facility] NON-INTERFACED (ONBASE SCANS) * (ABNORMAL) Basic metabolic panel (12/06/2022 2:15 PM CDT) Sodium (External) 134(L) 135 - 149 mmol/L NON-INTERFACED (ONBASE SCANS) Potassium (External) 4.6 3.6 - 5.1 mmol/L NON-INTERFACED (ONBASE SCANS) Chloride (External) 102 96 - 114 mmol/L NON-INTERFACED (ONBASE SCANS) CO2 (External) 26 20 - 32 mmol/L NON-INTERFACED (ONBASE SCANS) Urea Nitrogen (External) 41(H) 7 - 30 mg/dL NON-INTERFACED (ONBASE SCANS) Creatinine (External) 2.4(H) 0.5 - 1.5 mg/dL NON-INTERFACED (ONBASE SCANS) GFR Estimated (External) 28 ml/min NON-INTERFACED (ONBASE SCANS) Calcium (External) 9.5 8.4 - 10.6 mg/dL NON-INTERFACED (ONBASE SCANS) Glucose (External) 333(H) 60 - 115 mg/dL NON-INTERFACED (ONBASE SCANS) Blood BLOOD SPECIMEN / Unknown 12/06/2022 2:15 PM CDT Narrative JESSICA PFT - 12/08/2022 1:00 PM CDT Verified by Ruperto Pepper on 12/08/2022. Patient Reported LAB - BLOOD ORDERABL ES JESSICA [place] NON-INTERFACED (ONBASE SCANS) documented in this encounter Visit Diagnoses Not on filedocumented in this encounter Care Teams Medical Secretary Relationship Specialty Start Date End Date Momo Forbes MD PCP - General Family Practice 01/02/14 documented as of this encounter
--- OUTSIDE RECORDS SUMMARY | 2023-08-31 13:09 | XMS_ITS | Encounter Summary ---
Author Name Unknown Organization [place] Address [facility] [place] [address] Care Team Providers Care Vp Integration Name Role Phone Momo Forbes MD Primary Care Provider Encounter Details Date Type Department Care Team (Late st Contact Info) Description 05/12/2023 Telephone [facility] [address] [place] [phone] Gretta Peacock, BOGDAN Social History Tobacco Use Types Packs/Day Years [...] filedocumented in this encounter Care Teams Vp Integration Relationship Specialty Start Date End Date Momo Forbes MD PCP - General Family Practice 01/02/14 documented as of this encounter
--- OUTSIDE RECORDS SUMMARY | 2023-08-31 13:09 | XMS_ITS | Encounter Summary ---
Author Name Unknown Organization [place] Address [address] [place] [address]. [place] [address] Care Team Providers Care Thresher Broomcorn Name Role Phone Momo Forbes MD Primary Care Provider + [phone] Reason for Visit * Reason Onset Date Comments Transplant 11/11/2022 Encounter Details Date Type Department Care Team (Late st Contact Info) Description 11/11/2022 Telephone [facility] [address] [place] [phone] Alana Calderon LPN Transplant Social History Tobacco Use Types Packs/Day [...] encounter Miscellaneous Notes * Telephone Encounter - Cristy Chen LPN - 11/15/2022 11:15 AM CDT Returned call to pharmacy asking them to return call to txp office with questions/concerns. * Telephone Encounter - Latosha Green - 11/11/2022 12:18 PM CDT Pharmacy is calling regarding dosage documented in this encounter Plan of Treatment Not on file documented as of this encounter Visit Diagnoses Not on filedocumented in this encounter Care Teams Thresher Broomcorn Relationship Specialty Start Date End Date Momo Forbes MD PCP - General Family Practice 01/02/14 documented as of this encounter
--- OUTSIDE RECORDS SUMMARY | 2023-08-31 13:09 | XMS_ITS | Encounter Summary ---
Author Name Unknown Organization [place] Address [address] [place] [address]. [place] [address] Care Team Providers Care Clinical Research Nurse Name Role Phone Momo Forbes MD Primary Care Provider + [phone] Reason for Visit * Reason Onset Date Comments Refill Request 11/29/2022 Encounter Details Date Type Department Care Team (Late st Contact Info) Description 11/29/2022 Refill [facility] [place] [address] [place] [phone] Joseph Quintana MD [address] [place] [address] [address] [facility] [address] [place] [address] Refill Request Social History Tobacco Use Types [...] of this encounter Visit Diagnoses Diagnosis 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
--- OUTSIDE RECORDS SUMMARY | 2023-08-31 13:09 | XMS_ITS ---
Author Name Unknown Organization [place] Address [address] [place] [address]. [place] [address] Care Team Providers Care Lens Cutter Name Role Phone Momo Forbes MD Primary Care Provider Active Problems Problem Noted Date Diagnosed Date [...] by automated process. Provider to review Depression Current Oncology Plans No current plan information found. Past Plans No past plan information found. Radiation Treatments * No radiation treatments are documented for this patient in [facility]. Treatments may have been administered in another system. Lifetime Dose Tracking * Chemical Lifetime Dose Automatic Entry Manual Entr y Air Kerma 190 mGy 190 mGy 0 mGy Fluoro Time 0.2 Minutes 0.2 Minutes 0 Minutes Resolved Problems Problem Noted Date Diagnosed Date [...]
--- OUTSIDE RECORDS SUMMARY | 2023-08-31 13:09 | XMS_ITS | Clinical Summary ---
Author Name Unknown Organization [place] Address [address] [place] [address]. [place] [address] Care Team Providers Care Cement Mason [employer] Name Role Phone Moom Forbes MD Primary Care Provider Allergies Active Allergy Reactions Criticality Noted Date [...] Active mycophenolate (GENERIC EQUIVALENT) 250 MG capsuleIndications:K jaun transplanted, d-donor kidney transplant recipient TAKE THREE [...] 0 Active PROGRAF (BRAND) 1 MG capsuleIndications:Aline zamorano transplanted Take 1 capsule (1 mg) by [...] Provider to review Dialysis patient (H24) 12/02/201110/17 Encounters Date Type Department Care Team Description 06/28/2023 Telephone [facility] [address] [phone] Satish Gómez MD Call Back from Last 3 Months Immunizations Name Administration Dates Next Due Hepatitis B Immunity: Titer 02/08/2012 Influenza (High Dose) 3 valent vaccine 0 Influenza (IIV3) PF 07/12/2017,06/22/2013 Pneumococcal 23 valent 05/05/2011 TD,PF 7+ (Tenivac) 01/12/2019 Family History Medical History Relation Comments [...] 136.1 kg (300 lb) 10/22/2022 8:00 AM DUCT LAYER SUPERVISOR Height 182.9 cm (6') 10/22/2022 8:00 AM DUCT LAYER SUPERVISOR Body Mass Index 40.69 10/22/2022 8:00 AM DUCT LAYER SUPERVISOR Plan of Treatment Health Maintenance Due Date Last Done Comments ADVANCE CARE PLANNING 1950 ANNUAL REVIEW OF HM ORDERS [address] CT COLONOGRAPHY 1950 DIABETIC FOOT EXAM 1950 FLEX SIG 1950 MICROALBUMIN 1950 sDNA (Cologuard) 1950 COLONOSCOPY 1960 ZOSTER IMMUNIZATION (1 of 2) 1969 RSV VACCINE ( & 60+) (1 - 1-dose 60+ series) 2010 TSH W/FREE T4 REFLEX 02/04/2015 02/04/2014 MEDICARE ANNUAL WELLNESS VISIT 2015 Pneumococcal Vaccine: 65+ Years (3 of 3 - PPSV23 or PCV20) 05/12/2016 03/17/2016, 05/05/2011 FALL RISK ASSESSMENT 10/10/2018 10/10/2017 EYE EXAM 07/31/2021 07/31/2020 LIPID 11/16/2022 11/16/2021, 07/22, 05/15/2018, Additional history exists A1C 03/14/2023 09/14/2022, 10/21, 01/27/2021, Additional history exists COVID-19 Vaccine ( season) 2023 09/22/2021, 09/22/2021, 11/18/2020, Additional history exists COLORECTAL CANCER SCREENING 06/15/2023 FIT 06/15/2023 06/15/2022 PHQ-2 (once per calendar year) 2023 10/10/2017 BMP 12/07/2023 12/06/2022, 11/20, 11/08/2022, Additional history exists DTAP/TDAP/TD IMMUNIZATION (5 - Td or Tdap) 01/12/2029 01/12/2019, 01/12/2019, 12/23/2018, Additional history exists HEPATITIS C SCREENING Completed 02/02/2014, 012 LUNG CANCER SCREENING Discontinued 06/14/2022 AORTIC ANEURYSM SCREENING (SYSTEM ASSIGNED) Completed 08/12/2022, 09/17/2020 INFLUENZA VACCINE Completed 05/26/2023, , 09/22/2021, Additional history exists HPV IMMUNIZATION Aged Out No longer e ligible based on patient's age to complete this topic IPV IMMUNIZATION Aged Out No longer e ligible based on patient's age to complete this topic MENINGITIS IMMUNIZATION Aged Out No l onger eligible based on patient's age to complete this topic RSV MONOCLONAL ANTIBODY Aged Out No l onger eligible based on patient's age to complete this topic Medical Devices Explanted Type Area Publisher Assistant Device Identifier Shelf Expiration Date Model / Serial / Lot Stent Ureteral [employer] Renal Transplant [id number] Implanted:Qty: 1 on 02/02/2014 by Migel Merchant MD at [facility] Explanted:Qty: 1 on 04/01/2014 by Celina Cole MD at [facility] Right: U[employer] 11/19/2016 [id number] / / [id number] Advance Directives For more information, please contact: [phone] Latest Code Status on File Code Status Date Activated Date Inactivated Comments Full Code 04/01/2014 9:03 AM 10/22/2022 7:29 AM Code Status History Code Status Date Activated Date Inactivated Comments Full Code 02/08/2014 7:12 AM 04/01/2014 9:03 AM Full Code 02/03/2014 12:56 AM 02/08/2014 7:12 AM Care Teams [employer] Relationship Specialty Start Date End Date Momo Forbes MD PCP - General Family Practice 01/02/14
--- OUTSIDE RECORDS SUMMARY | 2023-08-31 13:09 | XMS_ITS | Encounter Summary ---
Author Name Unknown Organization [place] Address [address] [place] [address]. [place] [address] Care Team Providers Care Assistant Secretary Name Role Phone Momo Forbes MD Primary Care Provider [phone] Reason for Visit * Reason Onset Date Comments Transplant Care Coordination 11/09/2022 RX Encounter Details Date Type Department Care Team (Late st Contact Info) Description 11/09/2022 Telephone [facility] Trans[facility] [address] [place] [phone] Gretta Peacock RN Transplant Care Coordination (RX) Social History Tobacco Use Types Packs/Day Years [...] Telephone Encounter - Gretta Peacock RN - 11/09/2022 2:57 PM CDT Images from the original note were not included. Spong, Joseph Herminio, MD Sveiven, Gretta, RN Continued elevated creatinine and proteinuria with new baseline creatinine ~ 2.5-2.8. ??Recent biopsy was possibly suggestive of pyelonephritis and urinalysis is suggestive of infection. ??Recommend treating with ciprofloxacin 250 mg bid x 14 days (CrCl ~ 47 ml/min). OUTCOME: Detailed message left on both patient and his 's voice mail with instruction to start cipro 250 mg bid X14 days. RX sent to local pharmacy. Asked for CB to confirm message. Gretta Peacock RN Accordion Maker [phone] ADDENDUM: , Tete v/u of starting cipro X14 day for UTI. Tacrolimus level 9.8 at 12 hours, on 11/08/22. Goal 4-6. Current dose 1 mg in AM, 0.5 mg in PM Dose changed to 0.5 mg in AM, 0.5 mg in PM Recheck level in 1-2 weeks Discussed with patient's Gretta Peacock RN Accordion Maker [phone] documented in this encounter Plan of Treatment Not on file documented as of this encounter Results * (ABNORMAL) CBC with [...] LAB - BLOOD SURYA [facility]ST LV LABORATORY [facility] [address] [facility] Lab (no room number, 1st floor of clinic) [place] [address], [facility] [phone] * (ABNORMAL) Basic metabolic panel (11/30/2022 11:33 AM CDT) Sodium 142 136 - 145 mmol/L 11/30/2022 [...] LAB - BLOOD SURYA H[facility] UU LABORATORY [facility] [address] [facility], [address] [address], [facility] [phone] * Tacrolimus by Tandem Mass Spectrometry (11/30/2022 11:33 AM CDT) Pathologist [facility] Tacrolimus by Tandem Mass Spectrometry 7.5 5.0 - 15.0 ug/L 11/30/2022 8:36 PM CDT [facility] Comment: Tacrolimus Reference Range (ug/L): [...] and its performance characteristics determined by the [facility], ??Special Chemistry Laboratory. It has not been cleared or approved by the FDA. The laboratory is regulated under CLIA as qualified to perform high-complexity testing. This test is used for clinical purposes. It should not be regarded as investigational or for research. 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
--- OUTSIDE RECORDS SUMMARY | 2023-08-31 13:09 | XMS_ITS | Encounter Summary ---
Author Name Unknown Organization [place] Address [address] [place] [address]. [place] [address] Care Team Providers Care White Kid Buffer Name Role Phone Momo Forbes MD Primary Care Provider Encounter Details Date Type Department Care Team (Latest Contact Info) Description 11/30/2022 Travel Social History Tobacco Use Types Packs/Day [...] filedocumented in this encounter Care Teams White Kid Buffer Relationship Specialty Start Date End Date Momo Forbes MD PCP - General Family Practice 01/02/14 documented as of this encounter
--- OUTSIDE RECORDS SUMMARY | 2023-08-31 13:09 | XMS_ITS | Encounter Summary ---
Author Name Unknown Organization [place] Address [address] [facility] [place] [address] Care Team Providers Care News Assignment Editor Name Role Phone Momo Forbes MD Primary Care Provider [phone] Reason for Visit * Reason Onset Date Comments Call Back 06/28/2023 Encounter Details Date Type Department Care Team (Late st Contact Info) Description 06/28/2023 Telephone [facility] Nephrology Clinic [address] [phone] Satish Gómez MD [address] [place] [phone] Call Back Social History Tobacco Use Types Packs/Day Years [...] Telephone Encounter - Gretta Peacock RN - 06/28/2023 4:15 PM CST Images from the original note were not included. Satish Gómez MD Sveiven, Sara, BOGDAN Do not recommend P.O. abx. Needs IV ceftriaxone 2g daily to complete course ----- Message ----- From: Gretta Peacock RN Sent: 06/28/2023 4:28 PM POLICE CHIEF DEPUTY To: Satish Gómez MD Subject: UTI/ MICHELLE inpatient at [facility]! I received a call from MADALYN Guerrero caring for Diego Guthrie at [facility] who is being treated for UTI/MICHELLE. Creatinine upon admission 3.5 down to 2.5 today which is at baseline. Ucx: >100,000 CFU/mL Serratia marcescens <10,000 CFU/mL Multiple organisms probable contaminants Susceptibility Organism Antibiotic Susceptibility Serratia marcescens TRIMETHOPRIM/SULF <=09/09: S Serratia marcescens CEFAZOLIN >=64: R Serratia marcescens GENTAMICIN <=1: S Serratia marcescens CEFTRIAXONE <=1: S Serratia marcescens CEFTAZIDIME <=1: S Serratia marcescens LEVOFLOXACIN 1: I Serratia marcescens CIPROFLOXACIN 1: R Serratia marcescens CEFEPIME <=1: S Serratia marcescens TOBRAMYCIN 2: S Serratia marcescens MEROPENEM <=0.25: S Serratia marcescens NITROFURANTOIN 128: R Currently being treated with IV ABX however the plan was to switch to double strength bactrim tomorrow and discharge to rehab. With the Serratia Marcescens Oral cephalosporins are not recommended due to concern for derepression of AmpC beta-lactamases. What would you recommend for PO abx as we do not want him on the double strength bactrim? Gretta Peacock RN Jigsaw Operator [phone] OUTCOME: provider aware and agreeable to continuing IV ABX Gretta Peacock RN Jigsaw Operator [phone] CE CHIEF DEPUTY * Telephone Encounter - Gretta Peacock RN - 06/28/2023 4:09 PM CST Returned call to provider. Asked for CB to discuss patient's current states. Left RNCC contact information as well as the provider to provider line. Gretta Peacock RN Jigsaw Operator [phone] CE CHIEF DEPUTY * Telephone Encounter - Haleigh Hodgson - 06/28/2023 12:46 PM CST [facility] Phone Message May a detailed message be left on voicemail: yes Reason for Call: Per Cesar PERIPHERAL EQUIPMENT OPERATOR from [facility] calling stating that pt is currently inpatient for MICHELLE and a UTI. Cesar is wanting to speak with Dalia or a care steam train driver regarding this. Please call Cesar Action Taken: Message routed to: Other: Neph Travel Screening: Not Applicable CE CHIEF DEPUTY documented in this encounter Plan of Treatment Not on file documented as of this encounter Visit Diagnoses Not on filedocumented in this encounter Care Teams News Assignment Editor Relationship Specialty Start Date End Date Momo Forbes MD PCP - General Family Practice 01/02/14 documented as of this encounter
--- OUTSIDE RECORDS SUMMARY | 2023-08-31 13:10 | XMS_ITS | Encounter Summary ---
Author Name Unknown Organization [place] Address [address] [place] [address] Care Team Providers Care Violin Repairer Name Role Phone Momo Forbes MD Primary Care Provider [phone] Encounter Details Date Type Department Care Team (Late st Contact Info) Description 10/26/2022 External Order Results [facility] [address] [place] [address] Outside, Provider Social History Tobacco Use Types [...] was confirmed or suspected to have Coronavirus/COVID-19? Unable to assess 10/28/2022 12:48 PM TEAMCENTER SOLUTION ARCHITECT documented as of this encounter Plan of Treatment Not on file documented as of this encounter Procedures Procedure Name Priority Date/Time Associated Diagnosis Comments CBC WITH PLATELETS & DIFFERENTIAL Routine 10/26/2022 11:25 AM TEAMCENTER SOLUTION ARCHITECT TACROLIMUS BY TANDEM MASS SPECTROMETRY Routine 10/26/2022 11:25 AM TEAMCENTER SOLUTION ARCHITECT BASIC METABOLIC PANEL Routine 10/26/2022 11:25 AM TEAMCENTER SOLUTION ARCHITECT documented in this encounter Results * Tacrolimus by Tandem Mass Spectrometry (10/26/2022 11:25 AM TEAMCENTER SOLUTION ARCHITECT) Pathologist [facility] Tacrolimus([id number]) (External) 7.6 ng/mL NON-INTERFACE D (ONBASE SCANS) Blood 10/26/2022 11:2 5 AM TEAMCENTER SOLUTION ARCHITECT Narrative JESSICA PFT - 11/01/2022 1:42 PM CDT Verified by Yudi Ruano on 11/01/2022. Joseph Quintana MD LAB - BLOOD SURYA HURST JESSICA PFT NON-INTERFACED (ONBASE SCANS) * (ABNORMAL) CBC with Platelets & Differential (10/26/2022 11:25 AM TEAMCENTER SOLUTION ARCHITECT) Pathologist [facility] WBC Count (External) 6.29 4.50 - 11.00 K/uL NON-INTERFACE D (ONBASE SCANS) RBC Count (External) 5.47 4.30 - 5.90 M/uL NON-INTERFACE D (ONBASE SCANS) Hemoglobin (External) 14.4 13.5 - 17.5 gm/dL NON-INTERFACE D (ONBASE SCANS) Hematocrit (External) 45.3 37.0 - 53.0 % NON-INTERFACE D (ONBASE SCANS) MCV (External) 83 80 - 100 fL NON-INTERFACE D (ONBASE SCANS) MCH (External) 26 26 - 34 pg NON- INTERFACE D (ONBASE SCANS) MCHC (External) 32 32 - 36 gm/dL NON-INTERFACE D (ONBASE SCANS) Platelet Count (External) 142 140 - 440 K/uL NON-INTERFACE D (ONBASE SCANS) RDW (External) 15.2 11.5 - 15.5 % NON-INTERFACE D (ONBASE SCANS) % Neutrophils (External) 70.2 42.0 - 72.0 % NON-INTERFACE D (ONBASE SCANS) % Lymphocytes (External) 18.6(L) 20 - 44 % NON-INTERFACE D (ONBASE SCANS) % Monocytes (External) 6.7 0.0 - 11.0 % NON-INTERFACE D (ONBASE SCANS) % Eosinophils (External) 4.1 0.0 - 7.0 % NON-INTERFACE D (ONBASE SCANS) % Basophils (External) 0.2 0.0 - 3.0 % NON-INTERFACE D (ONBASE SCANS) Absolute Neutrophils (External) 4.42 1.7 - 7.0 K/uL NON-INTERFACE D (ONBASE SCANS) Absolute Lymphocytes (External) 1.20 0.90 - 2.90 K/uL NON-INTERFACE D (ONBASE SCANS) Absolute Monocytes (External) 0.40 0.00 - 0.90 K/UL NON-INTERFACE D (ONBASE SCANS) Absolute Eosinophils (External) 0.26 0.00 - 0.50 K/uL NON-INTERFACE D (ONBASE SCANS) Absolute Basophils (External) 0.01 0.00 - 0.30 K/uL NON-INTERFACE D (ONBASE SCANS) Blood BLOOD SPECIMEN / Unknown 10/26/2022 11:25 AM TEAMCENTER SOLUTION ARCHITECT Narrative JESSICA MORELIA - 10/27/2022 11:03 AM TEAMCENTER SOLUTION ARCHITECT Verified by Praful Huff on 10/27/2022. Joseph Quintana MD LAB - [facility]LOOD [facility] NON-[facility] (ONBASE SCANS) * (ABNORMAL) Basic metabolic panel (10/26/2022 11:25 AM TEAMCENTER SOLUTION ARCHITECT) Sodium (External) 140 135 - 149 mmol/L NON-INTERFACED (ONBASE SCANS) Potassium (External) 4.4 3.6 - 5.1 mmol/L NON-INTERFACED (ONBASE SCANS) Chloride (External) 105 96 - 114 mmol/L NON-INTERFACED (ONBASE SCANS) CO2 (External) 24 20 - 32 mmol/L NON-INTERFACED (ONBASE SCANS) Urea Nitrogen (External) 53(H) 7 - 30 mg/dL NON-INTERFACED (ONBASE SCANS) Creatinine (External) 2.9(H) 0.5 - 1.5 mg/dL NON-INTERFACED (ONBASE SCANS) GFR Estimated (External) 22 mL/min NON-INTERFACED (ONBASE SCANS) Calcium (External) 10.2 8.4 - 10.6 mg/dL NON-INTERFACED (ONBASE SCANS) Glucose (External) 205(H) 60 - 115 mg/dL NON-INTERFACED (ONBASE SCANS) Blood BLOOD SPECIMEN / Unknown 10/26/2022 11:25 AM TEAMCENTER SOLUTION ARCHITECT Narrative JESSICA PFT - 10/27/2022 11:03 AM TEAMCENTER SOLUTION ARCHITECT Verified by Praful Huff on 10/27/2022. Joseph Quintana MD LAB - BLOOD SURYA HURST [facility] Organization Address City/State/ZIP Co de Phone Number JESSICA MORELIA NON-INTERFACED (ONBASE SCANS) documented in this encounter Visit Diagnoses Not on filedocumented in this encounter Care Teams Violin Repairer Relationship Specialty Start Date End Date Momo Forbes MD PCP - General Family Practice 01/02/14 documented as of this encounter
--- OUTSIDE RECORDS SUMMARY | 2023-08-31 13:10 | XMS_ITS | Encounter Summary ---
Author Name Unknown Organization [place] Address [address] [place] [address] Care Team Providers Care Mobile Plant Operators Name Role Phone Momo Forbes MD Primary Care Provider + [phone] Encounter Details Date Type Department Care Team (Late st Contact Info) Description 10/26/2022 Orders Only [facility] Interventional Radiology [address] [place] [address] Chemo Gupta PA-C [address] [facility] [address] [place] [address] Social History Tobacco Use Types Packs/Day [...] suspected to have Coronavirus/COVID-19? No / Unsure 10/25/2022 12:16 PM PEDIATRIC CRITICAL CARE NURSE documented as of this encounter Progress Notes * Chemo Gupta PA-C - 10/26/2022 1:13 PM CST Diego Guthrie [phone] Authorizing: Joseph Quintana MD in SOT Priority: Routine: Next available opening Assign to: CHEMO GUPTA Diagnosis: Elevated serum creatinine [R79.89] Order Specific Questions What is the reason for the IR order request? Biopsy What type of biopsy is needed? Kidney Kidney biopsy options Transplant Patients clinical information/history? elevated creatinine Is this biopsy procedure for research? Yes Specimen orders should be placed per site protocol Acknowledge Call Back # [phone] Is the patient on aspirin, Plavix or blood thinners? Yes - Patient may be asked to stop taking medications ATRIC CRITICAL CARE NURSE documented in this encounter Plan of Treatment Not on file documented as of this encounter Visit Diagnoses Not on filedocumented in this encounter Care Teams Mobile Plant Operators Relationship Specialty Start Date End Date Momo Forbes MD PCP - General Family Practice 01/02/14 documented as of this encounter
--- OUTSIDE RECORDS SUMMARY | 2023-08-31 13:10 | XMS_ITS | Encounter Summary ---
Author Name Unknown Organization [place] Address [address] [place] [address]. [place] [address] Care Team Providers Care Tariff Compiler Name Role Phone Momo Forbes MD Primary Care Provider + [phone] Encounter Details Date Type Department Care Team (Late st Contact Info) Description 10/28/[address] [facility] [address] [place] [phone] Gretta Peacock RN Kidney transplanted (Primary Dx); Elevated serum creatinine Social History Tobacco Use Types Packs/Day Years [...] Coronavirus/COVID-19? Unable to assess 10/28/2022 12:48 PM CLERICAL STOCK INSPECTOR documented as of this encounter Plan of Treatment Not on file documented as of this encounter Results * (ABNORMAL) Protein random urine (11/08/2022 11:27 AM CDT) Total Protein Urine mg/dL 151.0(H) 1.0 - 14.0 mg/dL 11/08/2022 5:53 PM CDT [facility] Comment:The reference ranges have not been established in urine protein. The results should be integrated into the clinical context for interpretation. Total Protein Urine mg/mg Creat 2.39(H) 0.00 - 0.20 mg/mg Cr 11/08/2022 5:53 PM CDT [facility] Creatinine Urine mg/dL 63.2 mg/dL 11/08/2022 5:53 PM CDT [facility] Comment:The reference ranges have not been established in urine creatinine. The results should be integrated into the clinical context for interpretation. Urine MID-STREAM URINE SPECIMEN / Unknown Non-blood Collection / Unknown 11/08/2022 11:27 AM CDT 11/08/2022 11:27 AM CDT Joseph Quintana MD LAB - URINE ORDE ARIS [facility] [address] [facility], [address] [id number] [phone] * (ABNORMAL) UA reflex to Microscopic (11/08/2022 11:27 AM CDT) Color Urine Yellow Colorless, Straw, Light Yellow, Yellow 11/08/2022 11:39 AM CDT [facility] Appearance Urine Slightly Cloudy(A) Clear 11/08/2022 11:39 AM CDT [facility] Glucose Urine 500(A) Negative mg/dL 11/08/2022 11:39 AM CDT [facility] Bilirubin Urine Negative Negative 11:39 AM CDT [facility] Ketones Urine Negative Negative mg/dL 11/08/2022 11:39 AM CDT [facility] Specific [place] Urine 1.015 1.003 - 1.035 11/08/2022 11:39 AM CDT [facility] Blood Urine Large(A) Negative 11/08/2022 11:39 AM CDT [facility] pH Urine 6.0 5.0 - 7.0 11/08/2022 11:39 AM CDT [facility] Protein Albumin Urine >=300(A) Negative mg/dL 11/08/2022 11:39 AM CDT [facility] Urobilinogen Urine 0.2 0.2, 1.0 E.U./dL 11/08/2022 11:39 AM CDT [facility] Nitrite Urine Negative Negative 11/08/2022 11:39 AM CDT [facility] Leukocyte Esterase Urine Moderate(A) Negative 11/08/2022 11:39 AM CDT [facility] Urine MID-STREAM URINE SPECIMEN / Unknown Non-blood Collection / Unknown 11/08/2022 11:27 AM CDT 11/08/2022 11:27 AM CDT Joseph Quintana MD LAB - URINE SURYA HURST [facility] [address] [facility] Lab (no room number, 1st floor of clinic) [place] [address], [facility] [phone] * (ABNORMAL) CBC with platelets (11/08/2022 11:16 AM CDT) WBC Count 4.6 4.0 - 11.0 10e3/uL 11/08/2022 11:27 AM CDT [facility] RBC Count 5.07 4.40 - 5.90 10e6/uL 11/08/2022 11:27 AM CDT [facility] Hemoglobin 13.3 13.3 - 17.7 g/dL 11/08/2022 11:27 AM CDT [facility] Hematocrit 42.0 40.0 - 53.0 % 11/08/2022 11:27 AM CDT [facility] MCV 83 78 - 100 fL 11/08/2022 11:27 AM CDT [facility] MCH 26.2(L) 26.5 - 33.0 pg 11/08/2022 11:27 AM CDT [facility] MCHC 31.7 31.5 - 36.5 g/dL 11/08/2022 11:27 AM CDT [facility] RDW 15.1(H) 10.0 - 15.0 % 11/08/2022 11:27 AM CDT [facility] Platelet Count 107(L) 150 - 450 10e3/uL 11/08/2022 11:27 AM CDT [facility] Blood STRUCTURE OF LEFT UPPER LIMB / Unknown Venipuncture / Unknown 11/08/2022 11:16 AM CDT 11/08/2022 11:16 AM CDT Joseph Quintana MD LAB - BLOOD ORDBea HURST [facility] [address] [facility] Lab (no room number, 1st floor of [facility]) [place] [address], [facility] [phone] * (ABNORMAL) Basic metabolic panel (11/08/2022 11:16 AM CDT) [facility] Sodium 140 136 - 145 mmol/L 11/08/2022 5:47 PM CDT [facility] Potassium 5.0 3.4 - 5.3 mmol/L 11/08/2022 5:47 PM CDT [facility] Chloride 104 98 - 107 mmol/L 11/08/2022 5:47 PM CDT [facility] Carbon Dioxide (CO2) 24 22 - 29 mmol/L 11/08/2022 5:47 PM CDT [facility] Anion Gap 12 7 - 15 mmol/L 11/08/2022 5:47 PM CDT [facility] Urea Nitrogen 36.0(H) 8.0 - 23.0 mg/dL 11/08/2022 5:47 PM CDT [facility] Creatinine 2.71(H) 0.67 - 1.17 mg/dL 11/08/2022 5:47 PM CDT [facility] Calcium 10.0 8.8 - 10.2 mg/dL 11/08/2022 5:47 PM CDT [facility] Glucose 303(H) 70 - 99 mg/dL 11/08/2022 5:47 PM CDT [facility] GFR Estimate 24(L) >60 mL/min/1.7 3m2 11/08/2022 5:47 PM CDT [facility] Comment:eGFR calculated 2020 CKD-EPI equation. Blood BLOOD SPECIMEN / Unknown Venipuncture / Unknown 11/08/2022 11:16 AM CDT 11/08/2022 11:16 AM CDT Joseph Quintana MD LAB - BLOOD SURYA HURST [facility] [facility] [address] [facility], [address] [place] [phone], [facility] [phone] documented in this encounter Visit Diagnoses Diagnosis Kidney transplanted- Primary Kidney replaced by transplant Elevated serum creatinine Other nonspecific findings on examination of blood documented in this encounter Care Teams Tariff Compiler Relationship Specialty Start Date End Date Momo Forbes MD PCP - General Family Practice 01/02/14 documented as of this encounter
--- OUTSIDE RECORDS SUMMARY | 2023-08-31 13:10 | XMS_ITS | Encounter Summary ---
Author Name Unknown Organization [facility] Address [address] [place] [address]. [place] [address] Care Team Providers Care Atomic Physics Teacher Name Role Phone Momo Forbes MD Primary Care Provider + [phone] Reason for Referral * Diagnostic Imaging NM (Routine) - Closed Specialty Diagnoses / Procedures Referred By Contac t Referred To Contact Radiology. Diagnoses Elevated serum creatinine Procedures NM Renogram with Joseph Ashton MD [address] [place] [id number] Referral ID Status Reason Start Date Expiration Date Visits Re quested Visits Authorized [id number] Closed 10/26/2022 10/26/2023 1 1 MOBILE DRIVER Reason for Visit * Diagnostic Imaging NM (Routine) - Closed Specialty Diagnoses / Procedures Referred By Contac t Referred To Contact Radiology. Diagnoses Elevated serum creatinine Procedures NM Renogram with Joseph Ashton MD [address] [place] [address] [place] [address] Referral ID Status Reason Start Date Expiration Date Visits Re quested Visits Authorized [id number] Closed 10/26/2022 10/26/2023 1 1 Encounter Details Date Type Department Care Team (Latest Contact Info) Description 10/28/2022 12:49 PM BOOKMOBILE DRIVER - 10/28/2022 11:59 PM BOOKMOBILE DRIVER Hospital Encounter [facility] Imaging [address] [place] [phone] Joseph Quintana MD [address] [facility] [address] [facility] [address] [place], [place] [phone] Elevated serum creatinine Discharge Disposition: Home or Self Care Social [...] Coronavirus/COVID-19? Unable to assess 10/28/2022 12:48 PM BOOKMOBILE DRIVER documented as of this encounter Medications at Time of Discharge Medication Sig Dispensed Refills Start Date End Date apixaban ANTICOAGULANT (ELIQUIS) 5 MG tablet Take 2.5 mg by mouth 2 times daily 0 carvedilol 6.25 MG PO tabletIndications:HTN, kidney transplant related Take 1 tablet (6.25 mg) by mouth 2 times daily (with meals) 180 tablet 3 10/09/2019 gabapentin 300 MG PO capsule Take 300 mg by mouth 3 times daily 0 10/08/2019 HumaLOG VIAL 100 UNITS/ML SOLN Inject 20-40 Units Subcutaneous 3 times daily (before meals) Patient reported his dose 10-12 unit 2-3 times daily before meals 0 LANTUS VIAL 100 UNITS/ML SC SOLN Inject 50 Units Subcutaneous every evening 0 levothyroxine (SYNTHROID/LEVOTHROID) 50 MCG tablet Take 50 mcg by mouth daily 0 losartan 100 MG PO tablet Take 1 tablet (100 mg) by mouth daily 90 tablet 3 10/09/2019 mycophenolate (GENERIC EQUIVALENT) 250 MG capsuleIndications:Kid olivia transplanted,- donor kidney transplant recipient TAKE THREE CAPSULES BY MOUTH TWICE A DAY 180 capsule 11 10/15/2022 pantoprazole (PROTONIX) 40 MG EC tablet Take 40 mg by mouth daily 0 potassium chloride ER (KLOR-CON M) 20 MEQ CR tablet Take 20 mEq by mouth 2 times daily 0 rosuvastatin (CRESTOR) 10 MG tabletIndications:DM (diabetes mellitus), type 2 (H),Other and unspecified hyperlipidemia Take 1 tablet (10 mg) by mouth daily 90 tablet 3 04/22/2015 amLODIPine (NORVASC) 10 MG tabletIndications:HTN, kidney transplant related Take 1 tablet (10 mg) by mouth At Bedtime 90 tablet 3 03/05/2021 11/02/2022 aspirin 81 MG tabletIndications:DM (diabetes mellitus), type 2 (H) Take 1 tablet (81 mg) by mouth daily 180 tablet 0 04/09/2014 11/02/2022 Calcium Carbonate-Vitamin D (CALCIUM + D PO) Take 1 tablet by mouth daily (dose unknown) 0 11/02/2022 citalopram (CELEXA) 20 MG tabletIndications:Reac tive depression Take 1 tablet (20 mg) by mouth daily 90 tablet 3 09/28/2016 11/02/2022 PROGRAF (BRAND) 0.5 MG capsuleIndications:Dec eased-donor kidney transplant recipient,Kidney transplanted Take 1 capsule (0.5 mg) by mouth every evening TOTAL dose 1 mg AM and 0.5 mg PM 30 capsule 11 10/15/2022 11/03/2022 PROGRAF (BRAND) 1 MG capsuleIndications:Rachid olivia transplanted,- donor kidney transplant recipient TAKE ONE CAPSULE BY MOUTH ONCE DAILY (TOTAL DOSE = 1MG IN THE MORNING AND 0.5MG IN THE EVENING) 30 capsule 11 10/15/2022 11/03/2022 documented as of this encounter Plan of Treatment Not on file documented as of this encounter Procedures Procedure Name Priority Date/Time Associated Diagnosis Comments NM RENOGRAM WITH LASIX Routine 10/28/2022 2:59 PM BOOKMOBILE DRIVER Elevated serum creatinine documented in this encounter Results * NM Renogram with Lasix (10/28/2022 2:59 PM BOOKMOBILE DRIVER) Anatomical Region Laterality Modality Abdomen/Pelvis Nuclear Medicine Impressions 10/28/2022 3:04 PM BOOKMOBILE DRIVER Impression: 1. Normal perfusion of the transplanted kidney. 2. 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 3. No evidence of obstruction or leakage of the transplanted kidney. KJ THOMPSON MD Narrative 10/28/2022 3:04 PM BOOKMOBILE DRIVER Examination: ??NM transplant RENOGRAM WITH LASIX Date: ??10/28/2022 2:59 PM Indication: ??Elevated serum creatinine Additional Information: none Technique: The patient received 10.0 mCi of Tc-99m labeled MAG3 intravenously. The patient received 20 mg of Lasix intravenously at 20 minutes. Findings: The nuclear medicine study was performed on a renal transplant in the right lower quadrant of the pelvis. The flow phase demonstrates that there is normal perfusion of the adjacent iliac vessel and the transplanted kidney. Excretion curves demonstrates slight diminution of uptake into the kidney there is normal excretion without hydronephrosis or obstruction. After Lasix ministration there is further augmentation washout from the kidney. There is no evidence of a leak around the kidney. Procedure Note Kj Thompson MD - 10/28/2022 Examination: NM transplant RENOGRAM WITH LASIX Date: 10/28/2022 2:59 PM Indication: Elevated serum creatinine Additional Information: none Technique: The patient received 10.0 mCi of Tc-99m labeled MAG3 intravenously. The patient received 20 mg of Lasix intravenously at 20 minutes. Findings: The nuclear medicine study was performed on a renal transplant in the right lower quadrant of the pelvis. The flow phase demonstrates that there is normal perfusion of the adjacent iliac vessel and the transplanted kidney. Excretion curves demonstrates slight diminution of uptake into the kidney there is normal excretion without hydronephrosis or obstruction. After Lasix ministration there is further augmentation washout from the kidney. There is no evidence of a leak around the kidney. Impression: 1. Normal perfusion of the transplanted kidney. 2. 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 3. No evidence of obstruction or leakage of the transplanted kidney. KJ THOMPSON MD Joseph Quintana MD [facility] [place] documented in this encounter Visit Diagnoses Diagnosis Elevated serum creatinine Other nonspecific findings on examination of blood documented in this encounter Administered Medications Inactive Administered Medications - up to 3 most recent administrations Medication Order MAR Action Action Date Dose Rate Site furosemide (LASIX) injection 20 mg 20 mg, Intravenous, ONCE, Administer over 1-2 Minutes, On Renetta 10/28/22 at 1330, For 1 dose $Given 10/28/2022 1:57 PM BOOKMOBILE DRIVER 20 mg technetium mertiatide Tc99m (MAG3) radioisotope injection 8-12 millicurie 8-12 millicurie, Intravenous, ONCE, On Renetta 10/28/22 at 1330, For 1 dose, Supplied by, and administered by Nuclear Medicine. *HW* $Given 10/28/2022 1:36 PM BOOKMOBILE DRIVER 10 millicuries documented in this encounter Care Teams Atomic Physics Teacher Relationship Specialty Start Date End Date Momo Forbes MD PCP - General Family Practice 01/02/14 documented as of this encounter
--- OUTSIDE RECORDS SUMMARY | 2023-08-31 13:10 | XMS_ITS | Encounter Summary ---
Author Name Unknown Organization [place] Address [address] [place] [address]. [place] [address] Care Team Providers Care Analysis Internship Name Role Phone Momo Forbes MD Primary Care Provider Encounter Details Date Type Department Care Team (Latest Contact Info) Description 11/08/2022 Travel Social History Tobacco Use Types Packs/Day [...] on filedocumented in this encounter Care Teams Analysis Internship Relationship Specialty Start Date End Date Momo Forbes MD PCP - General Family Practice 01/02/14 documented as of this encounter
--- OUTSIDE RECORDS SUMMARY | 2023-08-31 13:10 | XMS_ITS | Encounter Summary ---
Author Name Unknown Organization [place] Address [facility]ly [facility], later [facility] [place] [address] Care Team Providers Care Field Marketing Coordinator Name Role Phone Momo Forbes MD Primary Care Provider [phone] Reason for Visit * Reason Onset Date Comments Transplant Immunosuppression Management 11/04/19 Transplant Care Coordination 11/03/2022 Encounter Details Date Type Department Care Team (Late st Contact Info) Description 11/03/2022 Telephone [facility] [address] [place] [address] Gretta Frias RN Transplant Immunosuppression [...] suspected to have Coronavirus/COVID-19? Unable to assess 11/02/2022 12:19 PM CDT documented as of this encounter Miscellaneous Notes * Telephone Encounter - Gretta Frias RN - 11/03/2022 8:29 AM CDT Discussed renal biopsy at chronic meeting. No obvious signs of rejection. Patient to obtain full set of transplant labs along with BK, UA, UC. Orders placed. Biopsy findings discussed with patient's . [facility] labs will be obtained atF lab Tuesday11/08/2022 Gretta Frias RN Plant Hr Manager [phone] * Addendum Note - Gretta Frias RN - 11/03/2022 8:29 AM CDTAddended by: GRETTA FRIAS on: 11/03/2022 04:03 PM Modules accepted: Orders documented in this encounter Plan of Treatment Not on file documented as of this encounter Results * (ABNORMAL) Urine Culture (11/08/2022 11:27 AM CDT) Culture >100,000 CFU/mL Hajavon gerardi(A) SHAILESH 11/10/2022 3:47 AM CDT [facility] Urine MID-STREAM URINE SPECIMEN / Unknown Non-blood Collection / Unknown 11/08/2022 11:27 AM CDT 11/08/2022 11:27 AM CDT Narrative Organism Antibiotic Method Susceptibility Hafnia moustaphai Ampicillin SHAILESH >=32 ug/mL: Resistant Comment:Intrinsicall y Resistant Hafluis enrique gerardi Ampicillin/ Sulbactam SHAILESH >=32 ug/mL: Resistant Comment:Intrinsicall y Resistant Hafnia alvei Piperacillin/Tazobactam SHAILESH >=128 ug/mL: Resistant Hafnia alvei Cefazolin SHAILESH >=64 ug/mL: Resistant Comment: Cefazolin SHAILESH breakpoints are for the treatment of uncomplicated urinary tract infections. For the treatment of systemic infections, please contact the laboratory for additional testing. Intrinsically Resistant Hafluis enrique moustaphai Cefoxitin SHAILESH Resistant Comment:Intrinsicall y Resistant Hafluis enrique moustaphai Ceftazidime SHAILESH <=1 ug/mL: Susceptible Hafnia moustaphai Ceftriaxone SHAILESH <=1 ug/mL: Susceptible Hafnia moustaphai Cefepime SHAILESH <=1 ug/mL: Susceptible Hafnia moustaphai Gentamicin SHAILESH <=1 ug/mL: Susceptible Hafnia alvei Tobramycin SHAILESH <=1 ug/mL: Susceptible Hafnia alvei Ciprofloxacin SHAILESH <=0.25 ug/mL: Susceptible Hafnia alvei Levofloxacin SHAILESH <=0.12 ug/mL: Susceptible Hafnia alvei Nitrofurantoin SHAILESH <=16 ug/mL: Susceptible Hafluis enrique alvei Trimethoprim/Sulfamethoxazole SHAILESH <=1/19 ug/mL: Susceptible Joseph Quintana MD LAB - MICRO GENE RAL ORDERABLES [facility] Inf. Diseases Diag. Lab [address] [facility], [address] [place] [address], [facility] [phone] * BK Virus Quantitative, PCR (11/08/2022 11:16 AM CDT) Pathologist [facility] BK Virus DNA copies/mL Not Detected Not Detected copies/mL 11/09/2022 10:55 AM CDT [facility] Blood BLOOD SPECIMEN / Unknown Venipuncture / Unknown 11/08/2022 11:16 AM CDT 11/08/2022 11:17 AM CDT Narrative [facility] - 11/09/2022 10:55 AM CDT The real-time quantitative BK Virus assay was developed and its performance characteristics determined by the Infectious Diseases Diagnostic Laboratory at [facility]. The primers and probes for each analyte are Analyte Specific Reagents (ASRs) manufactured by [employer]. ASRs are used in many laboratory tests necessary for standard medical care and generally do not require U.S. Food and Drug Administration approval. The FDA has determined that such clearance or approval is not necessary. This test is used for clinical purposes. It should not be regarded as investigational or for research. This laboratory is certified under the Clinical Laboratory Improvement Amendments of 1988 (CLIA-88) as qualified to perform high complexity clinical laboratory testing. The real-time quantitative BK Virus assay was developed and its performance characteristics determined by the Infect[facility] Diagnostic Laboratory at [facility]. The primers and probes for each analyte are Analyte Specific Reagents (ASRs) manufactured by [employer]. ASRs are used in many laboratory tests necessary for standard medical care and generally do not require U.S. Food and Drug Administration approval. The FDA has determined that such clearance or approval is not necessary. This test is used for clinical purposes. It should not be regarded as investigational or for research. This laboratory is certified under the Clinical Laboratory Improvement Amendments of 1988 (CLIA-88) as qualified to perform high complexity clinical laboratory testing. Joseph Quintana MD LAB - MICRO GENE RAL ORDERABLES [facility] Inf. Diseases Diag. Lab [address] [facility], [address] [place] [phone] [phone] * Tacrolimus by Tandem Mass Spectrometry (11/08/2022 11:16 AM CDT) [facility] Tacrolimus by Tandem Mass Spectrometry 9.8 5.0 - 15.0 ug/L 11/08/2022 10:05 PM CDT [facility] Comment: Tacrolimus [...] post transplant: 5-8 Tacrolimus Last Dose Date 11/07/2022 11/08/2022 10:05 PM CDT [facility] Tacrolimus Last Dose Time 11:15 PM 11/08/2022 10:05 PM CDT [facility] Blood STRUCTURE OF LEFT UPPER LIMB / Unknown Venipuncture / Unknown 11/08/2022 11:16 AM CDT 11/08/2022 11:16 AM CDT Narrative [facility] - 11/08/2022 10:05 PM CDT This test was developed and [...] research. Joseph Quintana MD LAB - BLOOD ORDBea HURST [facility] [address] [facility], [address] [place] [phone], [facility] [phone] documented in this encounter Visit Diagnoses Diagnosis Kidney transplanted- Primary Kidney replaced by transplant -donor kidney transplant recipient Kidney replaced by transplant Elevated serum creatinine Other nonspecific findings on examination of blood Elevated random blood glucose level Other abnormal glucose Acute pyelonephritis Acute pyelonephritis without lesion of renal medullary necrosis documented in this encounter Care Teams Field Marketing Coordinator Relationship Specialty Start Date End Date Momo Forbes MD PCP - General Family Practice 01/02/14 documented as of this encounter
--- OUTSIDE RECORDS SUMMARY | 2023-08-31 13:10 | XMS_ITS | Encounter Summary ---
Author Name Unknown Organization [place] Address [address] [place] [address]. [place] [address] Care Team Providers Care Collar Trimmer Name Role Phone Momo Forbes MD Primary Care Provider Encounter Details Date Type Department Care Team (Latest Contact Info) Description 11/02/2022 Travel Social History Tobacco Use Types Packs/Day [...] PM CDT documented as of this encounter Plan of Treatment Not on file documented as of this encounter Visit Diagnoses Not on filedocumented in this encounter Care Teams Collar Trimmer Relationship Specialty Start Date End Date Momo Forbes MD PCP - General Family Practice 01/02/14 documented as of this encounter
--- OUTSIDE RECORDS SUMMARY | 2023-08-31 13:10 | XMS_ITS | Encounter Summary ---
Author Name Unknown Organization [place] Address [address] [place] [address] Care Team Providers Care Travel Consultant Name Role Phone Momo Forbes MD Primary Care Provider Encounter Details Date Type Department Care Team (Late st Contact Info) Description 10/28/2022 Telephone [facility] Interventional Radiology [address] [place] [address] Carmen Luevano, BOGDAN Social History Tobacco Use Types Packs/Day [...] Coronavirus/COVID-19? Unable to assess 10/28/2022 12:48 PM FLATWARE MAKER documented as of this encounter Plan of Treatment Not on file documented as of this encounter Visit Diagnoses Not on filedocumented in this encounter Care Teams Travel Consultant Relationship Specialty Start Date End Date Momo Forbes MD PCP - General Family Practice 01/02/14 documented as of this encounter
--- OUTSIDE RECORDS SUMMARY | 2023-08-31 13:10 | XMS_ITS | Encounter Summary ---
Author Name Unknown Organization [place] Address [address] [facility] [place] [address] Care Team Providers Care Lead Burner Supervisor Name Role Phone Momo Forbes MD Primary Care Provider [phone] Encounter Details Date Type Department Care Team (Late st Contact Info) Description 11/02/2022 Orders Only [facility] Laboratory [address] [place] [phone] Gino Wan Social History Tobacco Use Types Packs/Day Years [...] filedocumented in this encounter Care Teams Lead Burner Supervisor Relationship Specialty Start Date End Date Momo Forbes MD PCP - General Family Practice 01/02/14 documented as of this encounter
--- OUTSIDE RECORDS SUMMARY | 2023-08-31 13:10 | XMS_ITS | Encounter Summary ---
Author Name Unknown Organization [place] Address [address] [facility] [place] [address] Care Team Providers Care Wreath Machine Tender Name Role Phone Momo Forbes MD Primary Care Provider [phone] Encounter Details Date Type Department Care Team (Late st Contact Info) Description 10/28/2022 Telephone [facility] Interventional Radiology [address] [place] [address] Carmen Luevano, BOGDAN Social History [...] Coronavirus/COVID-19? No / Unsure 10/25/2022 12:16 PM CHEF SAUCIER documented as of this encounter Plan of Treatment Not on file documented as of this encounter Visit Diagnoses Not on filedocumented in this encounter Care Teams Wreath Machine Tender Relationship Specialty Start Date End Date Momo Forbes MD PCP - General Family Practice 01/02/14 documented as of this encounter
--- OUTSIDE RECORDS SUMMARY | 2023-08-31 13:10 | XMS_ITS | Encounter Summary ---
Author Name Unknown Organization [facility] Address [address] [facility] [place] [address] Care Team Providers Care Billet Worker Name Role Phone Momo Forbes MD Primary Care Provider + [phone] Reason for Referral * Therapeutic Imaging/IR (Routine: Next available opening) - Closed Specialty Diagnoses / Procedures Referred By Contac t Referred To Contact Radiology. Diagnoses Elevated serum creatinine Procedures IR Renal Biopsy Right IR Referral outpatient referral Joseph Quintana MD [address] [place] [address] [address] [place] [address] Referral ID Status Reason Start Date Expiration Date Visits Re quested Visits Authorized [id number] Closed 10/26/2022 10/26/2023 1 1 Encounter Details Date Type Department Care Team (Latest Contact Info) Description 11/02/2022 12:18 PM CDT - 11/02/2022 5:10 PM CDT Hospital Encounter [facility] [address] [place] [address] Joseph Quintana MD [address] [place] [address] [place] [id number] Marco Enrique PA-C [facility] [address] [place] [address] Kidney replaced by transplant (Primary Dx); Elevated serum creatinine Discharge Disposition: Home or [...] PM CDT documented as of this encounter Last Filed [...] - documented in this encounter Discharge Instructions * Discharge Instructions* Yudi Purvis RN - 11/02/2022 3:27 PM CDT [facility] Interventional Radiology Patient Instructions Following Transplanted Kidney Biopsy AFTER YOU GO HOME If you were given sedation DO NOT drive or operate machinery at home or at work for at least 24 hours DO relax and take it easy for 48 hours, no strenuous activity for 24 hours DO drink plenty of fluids DO resume your regular diet, unless otherwise instructed by your Primary Physician Keep the dressing dry and in place for 24 hours. DO NOT SMOKE FOR AT LEAST 24 HOURS, if you have been given any medications that were to help you relax or sedate you during your procedure DO NOT drink alcoholic beverages the day of your procedure DO NOT do any strenuous exercise or lifting (> 10 lbs) for at least 3 days following your procedure DO NOT take a bath or shower for at least 12 hours following your procedure Remove dressing after shower the next day. Replace with Band aid for 2 days. Never leave a wet dressing in place. DO NOT make any important or legal decisions for 24 hours following your procedure There should be minimum drainage from the biopsy site CALL THE PHYSICIAN IF: You start bleeding from the procedure site. If you do start to bleed from that site, hold pressure on the site for a minimum of 10 minutes. Your physician will tell you if you need to return to the hospital You develop nausea or vomiting You have excessive swelling, redness, or tenderness at the site You have drainage that looks like it is infected. You experience severe pain You develop hives or a rash or unexplained itching You develop a temperature of 101 degrees F or greater You develop bloody clots or red urine after you are discharged ADDITIONAL INSTRUCTIONS: None [facility] INTERVENTIONAL RADIOLOGY DEPARTMENT Procedure Physician: Marco Enrique Pa-C Date of procedure: November 02, 2022 Telephone Numbers: [phone] Tuesday-Tuesday 7:30 am to 4:00 pm [phone] After 4:00 pm Tuesday-Tuesday, Weekends & Holidays. Ask for the Interventional Radiologist satellite communications operator. Someone is satellite communications operator 24 hrs/day [facility] toll free number: Tuesday-Tuesday 8:00 am to 4:30 pm [facility] Emergency Dept: [phone] documented in this encounter Medications at Time [...] 3 10/09/2019 mycophenolate (GENERIC EQUIVALENT) 250 MG capsuleIndications:Rachid baker transplanted,- donor kidney transplant recipient TAKE THREE [...] by mouth daily 90 tablet 3 04/22/2015 PROGRAF (BRAND) 0.5 MG capsuleIndications:Dec eased-donor kidney transplant recipient,Kidney transplanted Take 1 capsule (0.5 mg) by mouth every evening TOTAL dose 1 mg AM and 0.5 mg PM 30 capsule 11 10/15/2022 11/03/2022 PROGRAF (BRAND) 1 MG capsuleIndications:Rachid baker transplanted,- donor kidney transplant recipient TAKE ONE CAPSULE BY MOUTH ONCE DAILY (TOTAL DOSE = 1MG IN THE MORNING AND 0.5MG IN THE EVENING) 30 capsule 11 10/15/2022 11/03/2022 documented as of this encounter Progress Notes * Yudi Purvis RN - 11/02/2022 5:40 PM CDT Pt tolerated recovery without complication. Pt voided clear yellow. Discharge instructions reviewed, copy given to pt. Pt tolerated oral intake and ambulation. OXNAA dc'd. Pt discharged home accompanied by friend. * Thad Garcia RN - 11/02/2022 3:10 PM CDT Patient arrived to room via litter with IR RN s/p renal biopsy . VSS. Denies/report pain. Pt alert and oriented x4. Site CDI. documented in this encounter Procedure Notes * Marco Enrique PA-C - 11/02/2022 2:59 PM CDTAssociated Order(s): IR Procedure Note Post-Procedure Diagnose(s): Elevated serum creatinine; Kidney replaced by transplant [facility] Procedure: IR Procedure Note Date/Time: 11/02/2022 2:57 PM Performed by: Marco Enrique PA-C Authorized by: Marco Enrique PA-C [employer] Site Marked: NA Prior Images Obtained and Reviewed: Yes Required items: Required blood products, implants, devices and special equipment available Patient identity confirmed: Verbally with patient, arm band, provided demographic data and hospital-assigned identification number Patient was reevaluated immediately before administering moderate or deep sedation or anesthesia Confirmation Checklist: Patient's identity using two indicators, relevant allergies, procedure was appropriate and matched the consent or emergent situation and correct equipment/implants were available Time out: Immediately prior to the procedure a time out was called [place] Protocol: the Joint Commission [place] Protocol was followed Preparation: Patient was prepped and draped in usual sterile fashion ANESTHESIA Anesthesia: Local infiltration Local Anesthetic: Lidocaine 1% without epinephrine SEDATION Patient Sedated: Yes Sedation: Fentanyl and midazolam Vital signs: Vital signs monitored during sedation See dictated procedure note for full details. Findings: Sedation medications administered: Midazolam 2 mg, Fentanyl 100 mcg Specimens: core needle biopsy specimens sent for pathological analysis Complications: None Condition: Stable Plan: Transport to for bedrest and recovery PROCEDURE Describe Procedure: Completed ultrasound-guided RLQ transplant kidney biopsy. three passes yielded three cores sent to pathology in preservative. Gelfoam in tract. Patient Tolerance: Patient tolerated the procedure well with no immediate complications Length of time physician/provider present for 1:1 monitoring during sedation: 15 (14) documented in this encounter Miscellaneous Notes * IR Note - Molly Sotelo RN - 11/02/2022 3:00 PM CDT Patient Name: Diego Guthrie Today's Date: 11/02/2022 Procedure: Transplant Renal Biopsy Proceduralist: Marco Enrique PA-C Pathology present: Yes Procedure Start: 14:40 Procedure end: 14:55 Sedation Start: 14:41 Sedation End: 14:55 Total Sedation Time: 14 minutes Sedation medications administered: Midazolam 2 mg, Fentanyl 100 mcg Report given to: BOGDAN Oneil Coal Washer Tender: N/A Other Notes: Pt arrived to IR room 6 from . Consent reviewed. Pt denies any questions or concernsregarding procedure. Pt positioned supine and monitored per protocol. 3 cores obtained and sent to lab as ordered. GelFoam used to close biopsy needle track. Hemostatis achieved. Patient to be on bedrest for 2 hours, ending at 16:55 per Marco Enrique PA-C. Pt tolerated procedure without any noted complications. Pt transferred back to . * Pre-Procedure - Marco Enrique PA-C - 11/02/2022 1:09 PM CDT GENERAL PRE-PROCEDURE: Procedure: Image guided right lower quadrant transplant kidney biopsy Date/Time: 11/02/2022 1:09 PM Written consent obtained?: Yes Risks and benefits: Risks, benefits and alternatives were discussed Consent given by: Patient Patient states understanding of procedure being performed: Yes Patient's understanding of procedure matches consent: Yes Procedure consent matches procedure scheduled: Yes Expected level of sedation: Moderate Appropriately NPO: Yes ASA Class: 3 Mallampati : Grade 2- soft palate, base of uvula, tonsillar pillars, and portion of posterior pharyngeal wall visible Lungs: Lungs clear with good breath sounds bilaterally Heart: Normal heart sounds and rate History & Physical reviewed: History and physical reviewed and no updates needed Statement of review: I have reviewed the lab findings, diagnostic data, medications, and the plan for sedation Eliquis has been held for 6 doses. documented in this encounter Plan of Treatment Not on file documented as of this encounter Procedures Procedure Name Priority Date/Time Associated Diagnosis Comments IR RENAL BIOPSY RIGHT Routine: Next available opening 11/02/2022 2:57 PM CDT Elevated serum creatinine IR PROCEDURE NOTE Routine 11/02/2022 2:5 7 PM CDT Elevated serum creatinine Kidney replaced by transplant SURGICAL PATHOLOGY EXAM STAT 11/02/2022 2:52 PM CDT GLUCOSE BY METER Routine 11/02/2022 1:34 PM CDT documented in this encounter Results * IR Renal Biopsy Right (11/02/2022 2:57 PM CDT) Anatomical Region Laterality Modality Abdomen/Pelvis Radio Fluoroscop y Impressions 11/02/2022 3:02 PM CDT IMPRESSION: Completed ultrasound-guided right lower quadrant transplant kidney biopsy. A total of three kidney cores obtained. Pathology was on site to determine adequacy of specimen. ??Samples sent for pathological evaluation. No immediate complication. CLINICAL HISTORY: 72 year old male with RLQ transplanted kidney on 02/02/2014 presents for biopsy in setting of elevated creatinine. ?? PERFORMED BY: Marco Enrique PA-C CONSENT: Written informed consent was obtained and is documented in the patient record. MEDICATIONS: 1. 2 mg midazolam IV 2. 100 mcg fentanyl IV 3. 4 mL 1% lidocaine for local anesthesia NURSING: Patient continuously monitored by trained, independent observer. SEDATION TIME: 14 minutes [id number] DESCRIPTION: The patient's right low abdomen was prepped and draped in the usual sterile fashion. Color ultrasound was used to assess the subcutaneous tissues. No vessels were identified in the region of planned puncture. Under ultrasound guidance, the patient's skin, subcutaneous tissue, and kidney capsule were anesthetized. With ultrasound guidance, using a 17/18 gauge coaxial needle system, kidney tissue specimens were obtained. Needle was removed and the tract was sealed with Gelfoam pledgets. Pressure was held the site, and then cleansed and sterile dressing applied. Images were saved throughout the procedure. COMPLICATIONS: No immediate concerns, the patient remained stable throughout the procedure and tolerated it well. ESTIMATED BLOOD LOSS: Minimal SPECIMENS: 3 cores sent in preservative for pathological evaluation. MARCO ENRIQUE PA-C Narrative 11/02/2022 3:02 PM CDT DIAGNOSIS: Elevated serum creatinine PROCEDURE: IR RENAL BIOPSY RIGHT Procedure Note Marco Enrique PA-C - 11/02/2022 DIAGNOSIS: Elevated serum creatinine PROCEDURE: IR RENAL BIOPSY RIGHT IMPRESSION: Completed ultrasound-guided right lower quadrant transplant kidney biopsy. A total of three kidney cores obtained. Pathology was on site to determine adequacy of specimen. Samples sent for pathological evaluation. No immediate complication. CLINICAL HISTORY: 72 year old male with RLQ transplanted kidney on 02/02/2014 presents for biopsy in setting of elevated creatinine. PERFORMED BY: Marco Enrique PA-C CONSENT: Written informed consent was obtained and is documented in the patient record. MEDICATIONS: 1. 2 mg midazolam IV 2. 100 mcg fentanyl IV 3. 4 mL 1% lidocaine for local anesthesia NURSING: Patient continuously monitored by trained, independent observer. SEDATION TIME: 14 minutes [id number] DESCRIPTION: The patient's right low abdomen was prepped and draped in the usual sterile fashion. Color ultrasound was used to assess the subcutaneous tissues. No vessels were identified in the region of planned puncture. Under ultrasound guidance, the patient's skin, subcutaneous tissue, and kidney capsule were anesthetized. With ultrasound guidance, using a 17/18 gauge coaxial needle system, kidney tissue specimens were obtained. Needle was removed and the tract was sealed with Gelfoam pledgets. Pressure was held the site, and then cleansed and sterile dressing applied. Images were saved throughout the procedure. COMPLICATIONS: No immediate concerns, the patient remained stable throughout the procedure and tolerated it well. ESTIMATED BLOOD LOSS: Minimal SPECIMENS: 3 cores sent in preservative for pathological evaluation. MARCO ENRIQUE PA-C Joseph Quintana MD IMG IR ORDERABLE S * IR Procedure Note (11/02/2022 2:57 PM CDT) [facility] - 11/02/2022 2:57 PM CDT Marco Enrique PA-C ? 11/02/2022 ??3:02 PM [facility] Procedure: IR Procedure Note Date/Time: 11/02/2022 2:57 PM Performed by: Marco Enrique PA-C Authorized by: Marco Enrique PA-C [employer] Site Marked: NA Prior Images Obtained and Reviewed: ??Yes Required items: Required blood products, implants, devices and special equipment available ?? Patient identity confirmed: ??Verbally with patient, arm band, provided demographic data and hospital-assigned identification number Patient was reevaluated immediately before administering moderate or deep sedation or anesthesia Confirmation Checklist: ??Patient's identity using two indicators, relevant allergies, procedure was appropriate and matched the consent or emergent situation and correct equipment/implants were available Time out: Immediately prior to the procedure a time out was called ?? [place] Protocol: the Joint Commission [place] Protocol was followed ?? Preparation: Patient was prepped and draped in usual sterile fashion ?? ANESTHESIA Anesthesia: Local infiltration Local Anesthetic: ??Lidocaine 1% without epinephrine SEDATION Patient Sedated: Yes ?? Sedation: ??Fentanyl and midazolam Vital signs: Vital signs monitored during sedation ?? See dictated procedure note for full details. Findings: Sedation medications administered: Midazolam 2 mg, Fentanyl 100 mcg Specimens: core needle biopsy specimens sent for pathological analysis Complications: None Condition: Stable Plan: Transport to for bedrest and recovery PROCEDURE Describe Procedure: Completed ultrasound-guided RLQ transplant kidney biopsy. three passes yielded three cores sent to pathology in preservative. Gelfoam in tract. Patient Tolerance: ??Patient tolerated the procedure well with no immediate complications Length of time physician/provider present for 1:1 monitoring during sedation: 15 (14) Marco Enrique PA-C PROCEDURE/MINOR SURG ICAL ORDERABLES Performing Organization Address [facility] Co de Phone Number [address] [phone] * Surgical pathology exam - Transplant Renal (11/02/2022 2:52 PM CDT) Case Report Surgical Pathology Report ? Case: [id number] ? Authorizing Provider: ??Joseph Quintana MD ??Collected: ? 11/02/2022 02:52 PM ? Ordering Location: ? [facility] ? Received: ?11/02/2022 03:01 PM ? [address] [facility] ? Pathologist: ? Stanton Barraza MD ? Specimen: ?Kidney, Transplanted, Kidney biopsy, transp w/EM, IF ? 11/11/2022 9:50 AM CDT [facility] Addendum A sections of the sample submitted for immunofluorescence studies was also incubated with antibodies specific for complement component C1q. There is no significant staining for C1q in the glomeruli. 11/11/2022 9:50 AM CDT [facility] Addendum electronically signed by Stanton Barraza MD on 11/11/2022 at 9:50 AM Final Diagnosis A. kidney allograft biopsy (needle), 9 years post-transplantation : Focal neutrophil-rich interstitial inflammation in a small medullary area, suggesting the possibility of mild acute pyelonephritis Mild tubulitis, associated with no other significant signs of acute cell-mediated rejection in the cortex (t1 i0 v0) Mild glomerular hypercellularity, no significant peritubular capillaritis, positive c4d staining in isolated peritubular capillaries, and no transplant glomerulopathy, suggestive of mild or early active antibody-mediated rejection only in the presence of donor-specific antibodies (g1 ptc0 c4d1 cg0) Mild IgA nephropathy, with few mesangial deposits Acute tubular injury, mild - polarizable oxalate crystals in several tubules Moderate chronic changes of the parenchyma, including: - focal global glomerulosclerosis (20% of glomeruli) - focal segmental glomerulosclerosis (12% of glomeruli) - focal tubular atrophy and interstitial fibrosis (30% of the cortex) - severe arterial sclerosis and arteriolar hyalinosis (ct2 ci2 cv3 ah3 mm2) 11/11/2022 9:50 AM CDT [facility] Comment Preliminary results were reported to Dr. Quintana on 11.03.2022 at 12:15PM. 11/11/2022 9:50 AM CDT [facility] Clinical Information a 72 y/o male with a PMH gout, DM 2, HTN, A fib, tobacco use, ESRD s/p renal transplant 02/02/14, moderate hydronephrosis, elevated creatinine. Recently discharged from TCU after being admitted to OSH with + COVID, hypoxia, possible UTI, community acquired PNA. He was treated with dexamethasone, received bebtelovimab. IR has been asked to place an urgent PNT for concerns of ureteral stenosis after patient was reviewed at transplant committee review. US on 10/05/22 showed Moderate hydronephrosis of the transplant kidney in the right lower quadrant 11/11/2022 9:50 AM CDT [facility] Gross Description A(A). Kidney, Transplanted, Kidney biopsy, transp w/EM, IF: Transplant kidney biopsy, immediate assessment: Kidney tissue confirmed; Tissue submitted for light microscopy, immunofluorescence, and electron microscopy. (Eloisa Wan Gross Technologist) The specimen is received in formalin with proper patient identification, labeled transplant kidney biopsy. The specimen consists of 3 pale day needle core biopsies ranging from 0.9-1.3 cm in length and each 0.1 cm in diameter. The specimen is wrapped and is entirely submitted in cassette 1 for wei processing. A separate specimen is received in Porfirio fixative and consists of a single pale day core biopsy, 0.4 cm in length and 0.1 cm in diameter which is processed for immunofluorescence studies. A separate specimen is in glutaraldehyde and consists of a single pale day core biopsy, 0.2 in length and 0.1 cm in diameter which is processed for electron microscopic studies. 11/11/2022 9:50 AM CDT [facility] Microscopic Description LIGHT MICROSCOPY: Sections of formalin-fixed, paraffin embedded tissue were evaluated using H&E, PAS, Cox, and trichrome stains with the appropriate controls. An H&E-stained frozen section taken from the tissue allocated for immunofluorescence microscopy and methylene blue-stained epoxy sections of the tissue processed for electron microscopy were also evaluated using light microscopy. The sample consists of kidney cortex and medulla, and it includes 25 glomeruli (LM-17; IF-4; EM-4), of which 5 (3+1+1) are globally sclerosed, and 3 show segmental sclerosis. The non-sclerosed glomeruli are of normal size and architecture. No basement membrane spikes, double contours, or craters are seen in the glomeruli. Few capillary loops contain circulating mononuclear inflammatory cells. Cellular crescents are not seen in the glomeruli. The mesangium of some glomeruli appears moderately expanded by mesangial matrix and mesangial cells. There is focal loss of the brush border of the proximal tubular epithelium. Several tubules contain polarizable oxalate crystals. Rare tubules are infiltrated by mononuclear inflammatory cells (mild tubulitis). The sample reveals focal interstitial inflammation in a small medullary area, and the infiltrates are composed of mononuclear cells and neutrophils. There is no significant interstitial inflammation in non-atrophic cortical tissue. Obvious signs of a viral cytopathic effect are not seen in the sample. Peritubular capillaries contain no significant number of circulating inflammatory cells. About 30% of the renal cortex shows tubular atrophy and interstitial fibrosis. Arteries and arterioles show severe sclerosis. Arterioles also show severe hyalinosis. No vasculitis is present in the sample. IMMUNOFLUORESCENCE MICROSCOPY: The sections of the sample submitted for immunofluorescence studies were incubated with antibodies specific for the heavy chains of IgG, IgA, and IgM, for kappa and lambda light chains, albumin, fibrin, and complement components C3 and C4d. The sample contains 4 glomeruli. There is 1 globally sclerosed glomerulus. There is fine granular reactivity for IgA (trace), kappa LC (trace) and lambda LC (trace) in the mesangium. Tubules contain few intraluminal casts reactive for polyclonal IgA. The interstitium reveals scattered fibrin deposits. Arterioles reveal focal and strong reactivity for C3. There is no difference in reactivity between kappa and lambda light chains in the glomeruli, tubular casts and background of the tissue. The C4d staining is focally positive along isolated peritubular capillaries. The CD31 staining as a positive control shows diffuse positivity in peritubular capillaries. ELECTRON MICROSCOPY: The sample submitted for electron microscopy examination contains 4 glomeruli; 2 glomeruli are examined ultrastructurally. The glomerular visceral epithelial cells reveal moderate effacement of their foot processes. The glomerular basement membranes are irregularly thickened. The endothelial cells show focal prominent swelling. Tubuloreticular inclusions are not seen within the cytoplasm of glomerular endothelial cells. The mesangium reveals normal cellular elements and a moderately increased amount of matrix. Isolated granular electron dense deposits are present in the mesangium. Tubules show no specific changes. 11/11/2022 9:50 AM CDT [facility] Performing Labs The technical component of this testing was completed at [facility] 11/11/2022 9:50 AM CDT [facility] Case Images 11/11/2022 9:50 AM CDT [facility] Tissue STRUCTURE OF TRANSPLANTED KIDNEY / Unknown Non-blood Collection / Unknown 11/02/2022 2:52 PM CDT 11/02/2022 3:01 PM CDT Comment:STAT/WEI processing required Joseph LARES - ROBERT AP Performing Organization Address City/[facility] Co de Phone Number [facility] Specialty Lab [address] [facility], [address] [place] [address], [facility] [phone] [facility] Core Lab [address] [facility], [address] [place] [address], [place] [phone] [facility] [address] [place] [address], [place] [phone] * (ABNORMAL) Glucose by meter (11/02/2022 1:34 PM CDT) GLUCOSE BY METER POCT 226(H) 70 - 99 mg/dL 11/02/2022 1:40 PM CDT [facility] POC Blood, Capillary BLOOD SPECIMEN / Unknown 11/02/2022 1:34 PM CDT 11/02/2022 1:40 PM CDT Joseph JONES POC T Performing Organization Address City/[facility]/ZIP Co de Phone Number [facility] POC [facility] Lab [address] [facility] [place] [address], [facility] [phone] documented in this encounter Visit Diagnoses Diagnosis Kidney replaced by transplant- Primary Elevated serum creatinine Other nonspecific findings on examination of blood documented in this encounter Administered Medications Inactive Administered Medications - up to 3 most recent administrations Medication Order MAR Action Action Date Dose Rate Site fentaNYL (PF) (SUBLIMAZE) injection 25-50 mcg 25-50 mcg, Intravenous, EVERY 5 MIN PRN, severe pain, If inadequate response may repeat 25 mcg IV slowly every 5 min PRN severe pain; when verbally requested by provider., Administer over 2 Minutes, Starting on Tue11/02/22 at 1309, Doses can be exceeded under direct oversight of patient by physician., IR Intra-procedure $Given 11/02/2022 2:46 PM CDT 50 mcg $Given 11/02/2022 2:41 PM CDT 50 mcg flumazenil (ROMAZICON) injection 0.2 mg 0.2 mg, Intravenous, EVERY 1 MIN PRN, benzodiazepine reversal, If inadequate response after 45 seconds, may repeat 0.2 mg IV every 1 minute PRN oversedation., Administer over 1 Minutes, Starting on Tue11/02/22 at 1309, Give over 15 seconds. Maximum total dose of 1 mg. Continue monitoring until discharge criteria met for a minimum of 2 hours. Irritant. Use with caution in patients on benzodiazepine therapy., IR Intra-procedure lidocaine (LMX4) cream Topical, EVERY 1 HOUR PRN, pain, with VAD insertion, Starting on Tue11/02/22 at 1242, Apply at least 30 minutes prior to VAD insertion in divided doses as needed for size of site for insertion. MAX Dose: 2.5 g (?? of 5 g tube) Do NOT give if patient has a history of allergy to any local anesthetic or any lane product. Do NOT use both lidocaine intradermal/subcutaneous injection and the lidocaine cream on the same site., IR Pre-procedure lidocaine 1 % 0.1-1 mL 0.1-1 mL, Other, EVERY 1 HOUR PRN, mild pain with VAD insertion, Starting on Tue11/02/22 at 1242, MAX dose 1 mL subcutaneous OR intradermal along the side of the vein in divided doses as needed for VAD insertion. Do NOT give if patient has a history of allergy to any local anesthetic or any lane product. Do NOT use both lidocaine intradermal/subcutaneous injection and the lidocaine cream on the same site., IR Pre-procedure lidocaine 1 % 1-30 mL 1-30 mL, Intradermal, ONCE PRN, local anesthetic. When verbally ordered by prescriber during the procedure., Starting on Tue11/02/22 at 1309, For 1 dose, Dose to be divided into smaller volumes appropriate for the procedure. Provider to administer intradermally. Dose to be divided into smaller volumes appropriate for the procedure., IR Intra-procedure $Given by Other Clinician 11/02/2022 2:43 PM CDT 4 mLs midazolam (VERSED) injection 0.5-2 mg 0.5-2 mg, Intravenous, Administer over 1 Minutes, EVERY 4 MIN PRN, sedation, If inadequate response may repeat 0.5 mg IV slowly every 4 minutes PRN sedation until desired response; when verbally requested by provider., Starting on Tue11/02/22 at 1309, Doses can be exceeded under direct oversight of patient by physician. This drug may cause significant respiratory depression. Monitor respiratory status and vital signs carefully for 1 hour after each dose., IR Intra-procedure $Given 11/02/2022 2:46 PM CDT 1 mg $Given 11/02/2022 2:41 PM CDT 1 mg naloxone (NARCAN) injection 0.2 mg 0.2 mg, Intravenous, EVERY 2 MIN PRN, opioid reversal, Starting on Tue11/02/22 at 1309, Administer intravenous route when available and notify provider when administered. For unintended sedation or respiratory depression if all of the below criteria are met: ~ respiratory rate LESS than or EQUAL to 8. ~SaO2 less than 92% and or/end-tidal CO2 is greater than 50. ~ the patient is receiving an opioid, has unintended sedations assessed as RASS (-3), and is currently not on mechanical ventilation. RASS scale moderate (-3) is movement or eye opening to voice but no eye contact. Patient Monitoring Once the patient has demonstrated a response to the naloxone, continue to monitor respiratory rate, depth, oxygen saturation and end-tidal CO2 (if available) every 15 minutes x 2, then every 30 minutes x 2, then every 1 hour x 1 after each naloxone dose. Consider transfer to ICU if patient respiratory parameters have not improved after 4 naloxone doses., IR Intra-procedure naloxone (NARCAN) injection 0.2 mg 0.2 mg, Intramuscular, EVERY 2 MIN PRN, opioid reversal, Starting on Tue11/02/22 at 1309, Administer intramuscular if an intravenous route is not available and notify provider when administered. For unintended sedation or respiratory depression if all of the below criteria are met: ~ respiratory rate LESS than or EQUAL to 8. ~SaO2 less than 92% and or/end-tidal CO2 is greater than 50. ~ the patient is receiving an opioid, has unintended sedations assessed as RASS (-3), and is currently not on mechanical ventilation. RASS scale moderate (-3) is movement or eye opening to voice but no eye contact. Patient Monitoring Once the patient has demonstrated a response to the naloxone, continue to monitor respiratory rate, depth, oxygen saturation and end-tidal CO2 (if available) every 15 minutes x 2, then every 30 minutes x 2, then every 1 hour x 1 after each naloxone dose. Consider transfer to ICU if patient respiratory parameters have not improved after 4 naloxone doses., IR Intra-procedure naloxone (NARCAN) injection 0.4 mg 0.4 mg, Intravenous, EVERY 2 MIN PRN, opioid reversal, Starting on Tue11/02/22 at 1309, Administer intravenous route when available and notify provider when administered. For unintended sedation or respiratory depression if all of the below criteria are met: ~ respiratory rate LESS than or EQUAL to 8. ~ SaO2 less than 92% and or/end-tidal CO2 is greater than 50. ~ the patient is receiving an opioid, has unintended sedation assessed as RASS (-4) or (-5) and patient is currently not on mechanical ventilation. RASS scale (-4) is deep sedation with no response to voice but movement or eye opening to physical stimulation. RASS scale (-5) is unarousable. Patient Monitoring Once the patient has demonstrated a response to the naloxone, continue to monitor respiratory rate, depth, oxygen saturation and end-tidal CO2 (if available) every 15 minutes x 2, then every 30 minutes x 2, then every 1 hour x 1 after each naloxone dose. Consider transfer to ICU if patient respiratory parameters have not improved after 4 naloxone doses., IR Intra-procedure naloxone (NARCAN) injection 0.4 mg 0.4 mg, Intramuscular, EVERY 2 MIN PRN, opioid reversal, Starting on Tue11/02/22 at 1309, Administer intramuscular if an intravenous route is not available and notify provider when administered. For unintended sedation or respiratory depression if all of the below criteria are met: ~ respiratory rate LESS than or EQUAL to 8. ~ SaO2 less than 92% and or/end-tidal CO2 is greater than 50. ~ the patient is receiving an opioid, has unintended sedation assessed as RASS (-4) or (-5) and patient is currently not on mechanical ventilation. RASS scale (-4) is deep sedation with no response to voice but movement or eye opening to physical stimulation. RASS scale (-5) is unarousable. Patient Monitoring Once the patient has demonstrated a response to the naloxone, continue to monitor respiratory rate, depth, oxygen saturation and end-tidal CO2 (if available) every 15 minutes x 2, then every 30 minutes x 2, then every 1 hour x 1 after each naloxone dose. Consider transfer to ICU if patient respiratory parameters have not improved after 4 naloxone doses., IR Intra-procedure sodium chloride (PF) 0.9% PF flush 3 mL 3 mL, Intracatheter, EVERY 8 HOURS, First dose on Tue11/02/22 at 1300, to lock peripheral IV dormant line, IR Pre-procedure sodium chloride (PF) 0.9% PF flush 3 mL 3 mL, Intracatheter, EVERY 1 MIN PRN, line flush, other, to ensure patency or to lock dormant line, Starting on Tue11/02/22 at 1242, IR Pre-procedure sodium chloride 0.9% infusion at 75 mL/hr, Intravenous, CONTINUOUS, IF PATIENT IS RECEIVING RENAL DIALYSIS, RN to reduce rate of 0.9 % sodium chloride IV solution to 10 mL /hour (TKO) IV infusion to prevent fluid overload., IR Pre-procedure, Starting on Tue11/02/22 at 1300, Until Tue11/02/22 at 1944 $New Bag 11/02/2022 1:29 PM CDT 75 mL/hr documented in this encounter Active and Recently Administered Medications Due to Daylight Saving Time, this section may contain times in both [facility] TECHNICIAN and CDT. Scheduled Medication Order 10/31/2022 11/01/2022 11/02/2022 sodium chloride (PF) 0.9% PF flush 3 mL 3 mL, Intracatheter, EVERY 8 HOURS, First dose on Tue11/02/22 at 1300, to lock peripheral IV dormant line, IR Pre-procedure 1300 (Canceled Entry - Provider: Orders Generic Provider - Comment: Automatically canceled at discontinue of medication order) Continuous Medication Order 10/31/2022 11/01/2022 11/02/2022 sodium chloride 0.9% infusion at 75 mL/hr, Intravenous, CONTINUOUS, IF PATIENT IS RECEIVING RENAL DIALYSIS, RN to reduce rate of 0.9 % sodium chloride IV solution to 10 mL /hour (TKO) IV infusion to prevent fluid overload., IR Pre-procedure, Starting on Tue11/02/22 at 1300, Until Tue11/02/22 at 1944 1329 ($New Bag - Pro vider: Yudi Purvis RN) PRN Medication Order 10/31/2022 11/01/2022 11/02/2022 fentaNYL (PF) (SUBLIMAZE) injection 25-50 mcg 25-50 mcg, Intravenous, EVERY 5 MIN PRN, severe pain (7-10), If inadequate response may repeat 25 mcg IV slowly every 5 min PRN severe pain; when verbally requested by provider., Administer over 2 Minutes, Starting on Tue11/02/22 at 1309, Doses can be exceeded under direct oversight of patient by physician., IR Intra-procedure 1441 ($Given - Provi toribio: Molly Sotelo, BOGDAN)1446 ($Given - Provider: Molly Sotelo RN) flumazenil (ROMAZICON) injection 0.2 mg 0.2 mg, Intravenous, EVERY 1 MIN PRN, benzodiazepine reversal, If inadequate response after 45 seconds, may repeat 0.2 mg IV every 1 minute PRN oversedation., Administer over 1 Minutes, Starting on Tue11/02/22 at 1309, Give over 15 seconds. Maximum total dose of 1 mg. Continue monitoring until discharge criteria met for a minimum of 2 hours. Irritant. Use with caution in patients on benzodiazepine therapy., IR Intra-procedure lidocaine (LMX4) cream Topical, EVERY 1 HOUR PRN, pain, with VAD insertion, Starting on Tue11/02/22 at 1242, Apply at least 30 minutes prior to VAD insertion in divided doses as needed for size of site for insertion. MAX Dose: 2.5 g (?? of 5 g tube) Do NOT give if patient has a history of allergy to any local anesthetic or any lane product. Do NOT use both lidocaine intradermal/subcutaneous injection and the lidocaine cream on the same site., IR Pre-procedure lidocaine 1 % 0.1-1 mL 0.1-1 mL, Other, EVERY 1 HOUR PRN, mild pain with VAD insertion, Starting on Tue11/02/22 at 1242, MAX dose 1 mL subcutaneous OR intradermal along the side of the vein in divided doses as needed for VAD insertion. Do NOT give if patient has a history of allergy to any local anesthetic or any lane product. Do NOT use both lidocaine intradermal/subcutaneous injection and the lidocaine cream on the same site., IR Pre-procedure lidocaine 1 % 1-30 mL (COMPLETED) 1-30 mL, Intradermal, ONCE PRN, local anesthetic. When verbally ordered by prescriber during the procedure., Starting on Tue11/02/22 at 1309, For 1 dose, Dose to be divided into smaller volumes appropriate for the procedure. Provider to administer intradermally. Dose to be divided into smaller volumes appropriate for the procedure., IR Intra-procedure 1443 ($Given by Jayleen r Clinician - Provider: Molly Sotelo RN - Comment: Marco Enrique PA-C; total dose charted) midazolam (VERSED) injection 0.5-2 mg 0.5-2 mg, Intravenous, Administer over 1 Minutes, EVERY 4 MIN PRN, sedation, If inadequate response may repeat 0.5 mg IV slowly every 4 minutes PRN sedation until desired response; when verbally requested by provider., Starting on Tue11/02/22 at 1309, Doses can be exceeded under direct oversight of patient by physician. This drug may cause significant respiratory depression. Monitor respiratory status and vital signs carefully for 1 hour after each dose., IR Intra-procedure 1441 ($Given - Provi toribio: Molly Sotelo RN)1446 ($Given - Provider: Molly Sotelo RN) naloxone (NARCAN) injection 0.2 mg(Linked Group 1) 0.2 mg, Intravenous, EVERY 2 MIN PRN, opioid reversal, Starting on Tue11/02/22 at 1309, Administer intravenous route when available and notify provider when administered. For unintended sedation or respiratory depression if all of the below criteria are met: ~ respiratory rate LESS than or EQUAL to 8. ~SaO2 less than 92% and or/end-tidal CO2 is greater than 50. ~ the patient is receiving an opioid, has unintended sedations assessed as RASS (-3), and is currently not on mechanical ventilation. RASS scale moderate (-3) is movement or eye opening to voice but no eye contact. Patient Monitoring Once the patient has demonstrated a response to the naloxone, continue to monitor respiratory rate, depth, oxygen saturation and end-tidal CO2 (if available) every 15 minutes x 2, then every 30 minutes x 2, then every 1 hour x 1 after each naloxone dose. Consider transfer to ICU if patient respiratory parameters have not improved after 4 naloxone doses., IR Intra-procedure naloxone (NARCAN) injection 0.2 mg(Linked Group 1) 0.2 mg, Intramuscular, EVERY 2 MIN PRN, opioid reversal, Starting on Tue11/02/22 at 1309, Administer intramuscular if an intravenous route is not available and notify provider when administered. For unintended sedation or respiratory depression if all of the below criteria are met: ~ respiratory rate LESS than or EQUAL to 8. ~SaO2 less than 92% and or/end-tidal CO2 is greater than 50. ~ the patient is receiving an opioid, has unintended sedations assessed as RASS (-3), and is currently not on mechanical ventilation. RASS scale moderate (-3) is movement or eye opening to voice but no eye contact. Patient Monitoring Once the patient has demonstrated a response to the naloxone, continue to monitor respiratory rate, depth, oxygen saturation and end-tidal CO2 (if available) every 15 minutes x 2, then every 30 minutes x 2, then every 1 hour x 1 after each naloxone dose. Consider transfer to ICU if patient respiratory parameters have not improved after 4 naloxone doses., IR Intra-procedure naloxone (NARCAN) injection 0.4 mg(Linked Group 1) 0.4 mg, Intravenous, EVERY 2 MIN PRN, opioid reversal, Starting on Tue11/02/22 at 1309, Administer intravenous route when available and notify provider when administered. For unintended sedation or respiratory depression if all of the below criteria are met: ~ respiratory rate LESS than or EQUAL to 8. ~ SaO2 less than 92% and or/end-tidal CO2 is greater than 50. ~ the patient is receiving an opioid, has unintended sedation assessed as RASS (-4) or (-5) and patient is currently not on mechanical ventilation. RASS scale (-4) is deep sedation with no response to voice but movement or eye opening to physical stimulation. RASS scale (-5) is unarousable. Patient Monitoring Once the patient has demonstrated a response to the naloxone, continue to monitor respiratory rate, depth, oxygen saturation and end-tidal CO2 (if available) every 15 minutes x 2, then every 30 minutes x 2, then every 1 hour x 1 after each naloxone dose. Consider transfer to ICU if patient respiratory parameters have not improved after 4 naloxone doses., IR Intra-procedure naloxone (NARCAN) injection 0.4 mg(Linked Group 1) 0.4 mg, Intramuscular, EVERY 2 MIN PRN, opioid reversal, Starting on Tue11/02/22 at 1309, Administer intramuscular if an intravenous route is not available and notify provider when administered. For unintended sedation or respiratory depression if all of the below criteria are met: ~ respiratory rate LESS than or EQUAL to 8. ~ SaO2 less than 92% and or/end-tidal CO2 is greater than 50. ~ the patient is receiving an opioid, has unintended sedation assessed as RASS (-4) or (-5) and patient is currently not on mechanical ventilation. RASS scale (-4) is deep sedation with no response to voice but movement or eye opening to physical stimulation. RASS scale (-5) is unarousable. Patient Monitoring Once the patient has demonstrated a response to the naloxone, continue to monitor respiratory rate, depth, oxygen saturation and end-tidal CO2 (if available) every 15 minutes x 2, then every 30 minutes x 2, then every 1 hour x 1 after each naloxone dose. Consider transfer to ICU if patient respiratory parameters have not improved after 4 naloxone doses., IR Intra-procedure sodium chloride (PF) 0.9% PF flush 3 mL 3 mL, Intracatheter, EVERY 1 MIN PRN, line flush, other, to ensure patency or to lock dormant line, Starting on Tue11/02/22 at 1242, IR Pre-procedure Linked Groups Order Group 1: naloxone (NARCAN) injection 0.2 mgJump to med 0.2 mg, Intravenous, EVERY 2 MIN PRN, opioid reversal, Starting on Tue11/02/22 at 1309, Administer intravenous route when available and notify provider when administered. For unintended sedation or respiratory depression if all of the below criteria are met: ~ respiratory rate LESS than or EQUAL to 8. ~SaO2 less than 92% and or/end-tidal CO2 is greater than 50. ~ the patient is receiving an opioid, has unintended sedations assessed as RASS (-3), and is currently not on mechanical ventilation. RASS scale moderate (-3) is movement or eye opening to voice but no eye contact. Patient Monitoring Once the patient has demonstrated a response to the naloxone, continue to monitor respiratory rate, depth, oxygen saturation and end-tidal CO2 (if available) every 15 minutes x 2, then every 30 minutes x 2, then every 1 hour x 1 after each naloxone dose. Consider transfer to ICU if patient respiratory parameters have not improved after 4 naloxone doses., IR Intra- procedure Or naloxone (NARCAN) injection 0.4 mgJump to med 0.4 mg, Intravenous, EVERY 2 MIN PRN, opioid reversal, Starting on Tue11/02/22 at 1309, Administer intravenous route when available and notify provider when administered. For unintended sedation or respiratory depression if all of the below criteria are met: ~ respiratory rate LESS than or EQUAL to 8. ~ SaO2 less than 92% and or/end-tidal CO2 is greater than 50. ~ the patient is receiving an opioid, has unintended sedation assessed as RASS (-4) or (-5) and patient is currently not on mechanical ventilation. RASS scale (-4) is deep sedation with no response to voice but movement or eye opening to physical stimulation. RASS scale (-5) is unarousable. Patient Monitoring Once the patient has demonstrated a response to the naloxone, continue to monitor respiratory rate, depth, oxygen saturation and end-tidal CO2 (if available) every 15 minutes x 2, then every 30 minutes x 2, then every 1 hour x 1 after each naloxone dose. Consider transfer to ICU if patient respiratory parameters have not improved after 4 naloxone doses., IR Intra-procedure Or naloxone (NARCAN) injection 0.2 mgJump to med 0.2 mg, Intramuscular, EVERY 2 MIN PRN, opioid reversal, Starting on Tue11/02/22 at 1309, Administer intramuscular if an intravenous route is not available and notify provider when administered. For unintended sedation or respiratory depression if all of the below criteria are met: ~ respiratory rate LESS than or EQUAL to 8. ~SaO2 less than 92% and or/end-tidal CO2 is greater than 50. ~ the patient is receiving an opioid, has unintended sedations assessed as RASS (-3), and is currently not on mechanical ventilation. RASS scale moderate (-3) is movement or eye opening to voice but no eye contact. Patient Monitoring Once the patient has demonstrated a response to the naloxone, continue to monitor respiratory rate, depth, oxygen saturation and end-tidal CO2 (if available) every 15 minutes x 2, then every 30 minutes x 2, then every 1 hour x 1 after each naloxone dose. Consider transfer to ICU if patient respiratory parameters have not improved after 4 naloxone doses., IR Intra- procedure Or naloxone (NARCAN) injection 0.4 mgJump to med 0.4 mg, Intramuscular, EVERY 2 MIN PRN, opioid reversal, Starting on Tue11/02/22 at 1309, Administer intramuscular if an intravenous route is not available and notify provider when administered. For unintended sedation or respiratory depression if all of the below criteria are met: ~ respiratory rate LESS than or EQUAL to 8. ~ SaO2 less than 92% and or/end-tidal CO2 is greater than 50. ~ the patient is receiving an opioid, has unintended sedation assessed as RASS (-4) or (-5) and patient is currently not on mechanical ventilation. RASS scale (-4) is deep sedation with no response to voice but movement or eye opening to physical stimulation. RASS scale (-5) is unarousable. Patient Monitoring Once the patient has demonstrated a response to the naloxone, continue to monitor respiratory rate, depth, oxygen saturation and end-tidal CO2 (if available) every 15 minutes x 2, then every 30 minutes x 2, then every 1 hour x 1 after each naloxone dose. 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
--- OUTSIDE RECORDS SUMMARY | 2023-08-31 13:10 | XMS_ITS | Encounter Summary ---
Author Name Unknown Organization [facility] Address [address] [place] [address]. [place] [address] Care Team Providers Care Freelance Graphic Designer Name Role Phone Momo Forbes MD Primary Care Provider [phone] Encounter Details Date Type Department Care Team (Late st Contact Info) Description 11/08/2022 11:[address] [facility] [address] [place] [address] Kidney transplanted; Elevated serum creatinine; -donor kidney transplant recipient; Elevated random blood glucose level; Acute pyelonephritis Social History Tobacco Use Types Packs/Day Years [...] Procedure Name Priority Date/Time Associated Diagnosis Comments URINE MACROSCOPIC WITH REFLEX TO MICRO Routine 11/08/2022 11:27 AM CDT Kidney transplanted Elevated serum creatinine PROTEIN RANDOM URINE Routine 11/08/2022 11:27 AM CDT Kidney transplanted Elevated serum creatinine URINE MICROSCOPIC EXAM Routine 11/08/2022 11:27 AM CDT Kidney transplanted Elevated serum creatinine URINE CULTURE Routine 11/08/2022 11:27 AM CDT Kidney transplanted -donor kidney transplant recipient Elevated serum creatinine Elevated random blood glucose level Acute pyelonephritis PRA DONOR SPECIFIC ANTIBODY Routine 11/08/2022 11:16 AM CDT Kidney transplanted Elevated serum creatinine HLA DONOR SPECIFIC ANTIBODY Routine 11/08/2022 11:16 AM CDT Kidney transplanted Elevated serum creatinine HLA LUKASZ, CPRA Routine 11/08/2022 11:16 AM CDT Kidney transplanted Elevated serum creatinine HLA LUKASZ CLASS II, SINGLE ANTIGEN Routine 11/08/2022 11:16 AM CDT Kidney transplanted Elevated serum creatinine HLA LUKASZ CLASS I, SINGLE ANTIGEN Routine 11/08/2022 11:16 AM CDT Kidney transplanted Elevated serum creatinine PRA DONOR SPECIFIC ANTIBODY Routine 11/08/2022 11:16 AM CDT Kidney transplanted Elevated serum creatinine TACROLIMUS BY TANDEM MASS SPECTROMETRY Routine 11/08/2022 11:16 AM CDT Kidney transplanted BK VIRUS QUANTITATIVE, PCR Routine 11/08/2022 11:16 AM CDT Kidney transplanted -donor kidney transplant recipient Elevated serum creatinine BASIC METABOLIC PANEL Routine 11/08/2022 11:16 AM CDT Kidney transplanted Elevated serum creatinine CBC WITH PLATELETS Routine 11/08/2022 11 :16 AM CDT Kidney transplanted Elevated serum creatinine documented in this encounter Results * (ABNORMAL) Urine Microscopic Exam (11/08/2022 11:27 AM CDT) Bacteria Urine Many(A) None Seen /HPF SHAILESH 11/08/2022 11:41 AM CDT [facility] RBC Urine >100(A) 0-2 /HPF /HPF SHAILESH 11/08/2022 11:41 AM CDT [facility] WBC Urine 50-100(A) 0-5 /HPF /HPF SHAILESH 11/08/2022 11:41 AM CDT [facility] Urine MID-STREAM URINE SPECIMEN / Unknown Non-blood Collection / Unknown 11/08/2022 11:27 AM CDT 11/08/2022 11:27 AM CDT Joseph Quintana MD LAB - URINE SURYA HURST [facility] [address] [facility] Lab (no room number, 1st floor of clinic) [place] [address], [facility] [phone] * (ABNORMAL) Urine Culture (11/08/2022 11:27 AM CDT) Culture >100,000 CFU/mL Hafnia alvei(A) SHAILESH 11/10/2022 3:47 AM CDT [facility] Urine MID-STREAM URINE SPECIMEN / Unknown Non-blood Collection / Unknown 11/08/2022 11:27 AM CDT 11/08/2022 11:27 AM CDT Narrative Organism Antibiotic Method Susceptibility Hafnia alvei Ampicillin SHAILESH >=32 ug/mL: Resistant Comment:Intrinsicall y Resistant Hafnia alvei Ampicillin/ Sulbactam SHAILESH >=32 ug/mL: Resistant Comment:Intrinsicall y Resistant Hafnia alvei Piperacillin/Tazobactam SHAILESH >=128 ug/mL: Resistant Hafnia alvei Cefazolin SHAILESH >=64 ug/mL: Resistant Comment: Cefazolin SHAILESH breakpoints are for the treatment of uncomplicated urinary tract infections. For the treatment of systemic infections, please contact the laboratory for additional testing. Intrinsically Resistant Hafnia alvei Cefoxitin SHAILESH Resistant Comment:Intrinsicall y Resistant Hafnia alvei Ceftazidime SHAILESH <=1 ug/mL: Susceptible Hafnia alvei Ceftriaxone SHAILESH <=1 ug/mL: Susceptible Hafnia alvei Cefepime SHAILESH <=1 ug/mL: Susceptible Hafnia alvei Gentamicin SHAILESH <=1 ug/mL: Susceptible Hafnia alvei Tobramycin SHAILESH <=1 ug/mL: Susceptible Hafnia alvei Ciprofloxacin SHAILESH <=0.25 ug/mL: Susceptible Hafnia alvei Levofloxacin SHAILESH <=0.12 ug/mL: Susceptible Hafnia alvei Nitrofurantoin SHAILESH <=16 ug/mL: Susceptible Hafnia alvei Trimethoprim/Sulfamethoxazole SHAILESH <=1/19 ug/mL: Susceptible Joseph Quintana MD LAB - MICRO GENE RAL ORDERABLES Performing Organization Address City/[facility]/ZIP Co de Phone Number [facility] Inf. Diseases Diag. Lab [address] [facility], [address] [place] [address], [facility] [phone] * (ABNORMAL) Protein random urine (11/08/2022 11:27 [...] Joseph Quintana MD LAB - URINE ORDE RABLES [facility] [address] [facility], [address] [place] [address]RUST [phone] * (ABNORMAL) UA reflex to Microscopic (11/08/2022 [...] 11/08/2022 11:39 AM CDT [facility] Specific Waddy Urine 1.015 1.003 - 1.035 11/08/2022 11:39 [...] Urine Negative Negative 11/08/2022 11:39 AM CDT LABORATORY Leukocyte Esterase Urine Moderate(A) Negative 11/08/2022 11:39 AM CDT [facility] Urine MID-STREAM URINE SPECIMEN / Unknown Non-blood Collection / Unknown 11/08/2022 11:27 AM CDT 11/08/2022 11:27 AM CDT Joseph Quintana MD LAB - URINE CHELIE ARIS [facility] [address] [facility] Lab (no room number, 1st floor of clinic) [place] [address], [facility] [phone] * HLA Lukasz, CPRA (11/08/2022 11:16 AM CDT) UNOS CPRA 50 11/10/2022 5:15 PM CDT [facility] UNACCEPTABLE ANTIGENS A:2 B:51 11/10/2022 5:15 PM CDT [facility] Blood STRUCTURE OF LEFT UPPER LIMB / Unknown Venipuncture / Unknown 11/08/2022 11:16 AM CDT 11/08/2022 11:16 AM CDT Joseph Quintana MD LAB - IMMUNOLOGY ORDERABLES [facility] Immunology/Histocomp atability [facility] [address] [facility] [address], Room [address] [phone] * HLA Lukasz Class II, Single Antigen (11/08/2022 11:16 AM CDT) SA 2 TEST METHOD SA EDTA FCS 11/10/2022 5:15 PM CDT [facility] SA 2 CELL Class II 11/10/2022 5:15 PM CDT [facility] SA2 HI RISK LUKASZ None 11/10/2022 5:15 PM CDT [facility] SA2 MOD RISK LUKASZ None 11/10/2022 5:15 PM CDT [facility] SA 2 COMMENTS HLA PRA Test performed by modified testing procedure that may also include pretreatment of serum. Pretreatment may be the addition of calf serum, EDTA, and/or adsorption. High-risk, MFI > 3,000. Mod-risk, MFI 500-3,000. 11/10/2022 5:15 PM CDT [facility] Blood STRUCTURE OF LEFT UPPER LIMB / Unknown Venipuncture / Unknown 11/08/2022 11:16 AM CDT 11/08/2022 11:16 AM CDT Joseph Quintana MD LAB - IMMUNOLOGY ORDERABLES [facility] Immunology/Histocomp atability [facility] [address] [facility] [address], [address] [phone] * HLA Lukasz Class I, Single Antigen (11/08/2022 11:16 AM CDT) SA 1 TEST METHOD SA EDTA FCS 11/10/2022 5:15 PM CDT [facility] SA 1 CELL Class I 11/10/2022 5:15 PM CDT [facility] SA1 HI RISK LUKASZ None 11/10/2022 5:15 PM CDT [facility] SA1 MOD RISK LUKASZ A:2B:51 11/10/2022 5:15 PM CDT [facility] SA 1 COMMENTS HLA PRA Test performed by modified testing procedure that may also include pretreatment of serum. Pretreatment may be the addition of calf serum, EDTA, and/or adsorption. High-risk, MFI > 3,000. Mod-risk, MFI 500-3,000. 11/10/2022 5:15 PM CDT [facility] Blood STRUCTURE OF LEFT UPPER LIMB / Unknown Venipuncture / Unknown 11/08/2022 11:16 AM CDT 11/08/2022 11:16 AM CDT Joseph Quintana MD LAB - IMMUNOLOGY ORDERABLES [facility] Immunology/Histocomp atability [facility] [address], [address] [phone] * HLA Donor Specific Antibody (11/08/2022 11:16 AM CDT) Donor Identification 02/02/2014 11/10/2022 5:15 PM CDT [facility] Organ Right Kidney 11/10/2022 5:15 PM CDT [facility] DSA Present NO 11/10/2022 5:15 PM CDT [facility] DSA Comments Flow Single Antigen Beads assays are intended for detection/dre ntification of IgG anti-HLA antibodies. Mfi values may not accurately quantify donor-specifi c antibody levels in all instances. 11/10/2022 5:15 PM CDT [facility] DSA Test Method EDTA FCS 11/11/19 5:15 PM CDT [facility] Blood STRUCTURE OF LEFT UPPER LIMB / Unknown Venipuncture / Unknown 11/08/2022 11:16 AM CDT 11/08/2022 11:16 AM CDT Joseph Quintana MD LAB - IMMUNOLOGY ORDERABLES [facility] Immunology/Histocomp atability [facility] [address] [facility], [address] [address], [facility] [phone] * PRA Donor Specific Antibody (11/08/2022 11:16 AM CDT) Blood STRUCTURE OF LEFT UPPER LIMB / Unknown Venipuncture / Unknown 11/08/2022 11:16 AM CDT 11/08/2022 11:16 AM CDT Joseph Quintana MD LAB - IMMUNOLOGY ORDERABLES Performing Organization Address City/[facility]/ZIP Co de Phone Number [facility] Immunology/Histocomp atability [facility] [address] [facility], [address] [phone] * BK Virus Quantitative, PCR (11/08/2022 11:16 AM CDT) Pathologist [facility] BK Virus DNA copies/mL Not Detected Not Detected copies/mL 11/09/2022 10:55 AM CDT [facility] Blood BLOOD SPECIMEN / Unknown Venipuncture / Unknown 11/08/2022 11:16 AM CDT 11/08/2022 11:17 AM CDT Narrative [facility] - 11/09/2022 10:55 AM CDT The real-time quantitative BK Virus assay was developed and its performance characteristics determined by the Infectious [facility] Diagnostic Laboratory at [facility]. The primers and probes for each analyte [...] by the Infect[facility] Diseases Diagnostic Laboratory at [facility]. The primers and probes for each analyte [...] MICRO GENE RAL ORDERABLES [facility] Inf. Diseases Diag. Lab [address] [facility], [address] [place] [address], [facility] [phone] * Tacrolimus by Tandem Mass Spectrometry (11/08/2022 11:16 AM CDT) [facility] Tacrolimus by Tandem Mass Spectrometry 9.8 5.0 - 15.0 ug/L 11/08/2022 10:05 PM CDT [facility] Comment: Tacrolimus Reference Range (ug/L): Kidney Transplant: Pediatric 0-3 months post transplant: 10- 3-6 months post transplant: 8-10 6-12 months [...] and its performance characteristics determined by the [facility], [...] [facility] [address] [facility], [address] [place] [address], [facility] [phone] * (ABNORMAL) CBC with platelets (11/08/2022 11:16 AM CDT) [facility] WBC Count 4.6 4.0 - 11.0 10e3/uL [...] LAB - BLOOD SURYA HURST [facility] [address] [facility] Lab (no room number, 1st floor of clinic) [place] [address]RUST [phone] * (ABNORMAL) Basic metabolic panel (11/08/2022 11:16 AM CDT) Sodium 140 136 - 145 mmol/L 11/08/2022 [...] 5:47 PM CDT [facility] Comment:eGFR calculated usin 2020 CKD-EPI equation. Blood BLOOD SPECIMEN / Unknown Venipuncture / Unknown 11/08/2022 11:16 AM CDT 11/08/2022 11:16 AM CDT Joseph Quintana MD LAB - BLOOD SURYA HURST [facility] Core Lab [address] [facility], [address] [place] [phone], [facility] [phone] documented in this encounter Visit Diagnoses Diagnosis Kidney transplanted Kidney replaced by transplant Elevated serum creatinine Other nonspecific findings on examination of blood -donor kidney transplant recipient Kidney replaced by transplant Elevated random blood glucose level Other abnormal glucose Acute pyelonephritis Acute pyelonephritis without lesion of renal medullary necrosis documented in this encounter Care Teams Freelance Graphic Designer Relationship Specialty Start Date End Date Momo Forbes MD PCP - General Family Practice 01/02/14 documented as of this encounter
--- OUTSIDE RECORDS SUMMARY | 2023-08-31 13:10 | XMS_ITS | Encounter Summary ---
Author Name Unknown Organization [facility] Address [address] [place] [address]. [place] [address] Care Team Providers Care Corporate Controller Name Role Phone Momo Forbes MD Primary Care Provider Encounter Details Date Type Department Care Team (Latest Contact Info) Description 10/28/2022 Travel Social History Tobacco Use Types Packs/Day [...] Coronavirus/COVID-19? Unable to assess 10/28/2022 12:48 PM PROPERTY APPRAISER documented as of this encounter Plan of Treatment Not on file documented as of this encounter Visit Diagnoses Not on filedocumented in this encounter Care Teams Corporate Controller Relationship Specialty Start Date End Date Momo Forbes MD PCP - General Family Practice 01/02/14 documented as of this encounter
--- OUTSIDE RECORDS SUMMARY | 2023-08-31 13:10 | XMS_ITS | Encounter Summary ---
Author Name Unknown Organization [facility] Address [facility] [place] [address] Care Team Providers Care Consultant Intern Name Role Phone Momo Forbes MD Primary Care Provider + [phone] Encounter Details Date Type Department Care Team (Late st Contact Info) Description 11/03/2022 Telephone [facility] [address] [place] [address] Gretta Peacock, RN Social History Tobacco Use Types Packs/Day Years [...] Telephone Encounter - Gretta Peacock RN - 11/03/2022 2:05 PM CDT Duplicate encounter see additional phone call dated 11/03/2022 Gretta Peacock RN Second Helper [phone] * Telephone Encounter - Tommie Alcazar - 11/03/2022 1:45 PM CDT Patient Call: General Route to NETWORK SPECIALIST Reason for call: returning missed call and would like to speak with coordinator. Call back number is [phone]. Call back needed? Yes Return Call Needed Same as documented in contacts section When to return call?: Same day: Route High Priority documented in this encounter Plan of Treatment Not on file documented as of this encounter Visit Diagnoses Not on filedocumented in this encounter Care Teams Consultant Intern Relationship Specialty Start Date End Date Momo Forbes MD PCP - General Family Practice 01/02/14 documented as of this encounter
--- OUTSIDE RECORDS SUMMARY | 2023-08-31 13:10 | XMS_ITS | Encounter Summary ---
Author Name Unknown Organization [facility] Address [address] [place] [address]. [place] [address] Care Team Providers Care Mine Inspector Name Role Phone Momo Forbes MD Primary Care Provider + [phone] Reason for Visit * Reason Onset Date Comments Transplant 10/28/2022 Encounter Details Date Type Department Care Team (Late st Contact Info) Description 10/28/2022 Telephone [facility] [address] [place] [address] rGetta Peacock RN Transplant Social History Tobacco Use [...] Coronavirus/COVID-19? Unable to assess 10/28/2022 12:48 PM TERRA COTTA MOLD MAKER documented as of this encounter Miscellaneous Notes * Telephone Encounter - Gretta Peacock RN - 10/28/2022 8:25 PM CST Images from the original note were not included. Joseph Quintana MD Sveiven, Sara, RN Elevated creatinine with no evidence of obstruction on renogram and recommend a kidney transplant biopsy. Patient and both aware transplant team would like to proceed with renal transplant biopsy Thursday 11/02 Gretta Peacock RN Sanding Line Operator [phone] A COTTA MOLD MAKER * Telephone Encounter - Gretta Peacock RN - 10/28/2022 1:53 PM CST Left detailed message for letting her know renal biopsy was rescheduled for next Thursday 11/02 pending results of todays renogram. Asked for CB to confirm message received as well as to discuss tac level of 8.7 on 10/25- does not appear to be an accurate 12 hour trough level Gretta Peacock RN Sanding Line Operator [phone] A COTTA MOLD MAKER * Telephone Encounter - Laisha Porter - 10/28/2022 12:23 PM CST Patient Call: General Route to CENTER HOLE REAMER Pt on his way and have questions about appts for today and tomorrow and is need a return call [email or web address] Reason for call: Call back needed? Yes Return Call Needed Same as documented in contacts section When to return call?: Greater than one day: Route standard priority A COTTA MOLD MAKER documented in this encounter Plan of Treatment Not on file documented as of this encounter Visit Diagnoses Not on filedocumented in this encounter Care Teams Mine Inspector Relationship Specialty Start Date End Date Momo Forbes MD PCP - General Family Practice 01/02/14 documented as of this encounter
--- OUTSIDE RECORDS SUMMARY | 2023-08-31 13:11 | XMS_ITS | Encounter Summary ---
Author Name Unknown Organization [place] Address [address] 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 Diagnoses Elevated serum creatinine Hydronephrosis Procedures IR Nephrostomy Tube Placement Right Joseph Quintana MD [address] [facility] [address] [facility] [address] [place] [address] Referral ID Status Reason Start Date Expiration Date Visits Re quested Visits Authorized [id number] Closed 10/21/2022 10/21/2023 1 1 ERY CHARGER TESTER Encounter Details Date Type Department Care Team (Latest Contact Info) Description 10/22/2022 7:28 AM BATTERY CHARGER TESTER - 10/22/2022 12:15 PM BATTERY CHARGER TESTER Hospital Encounter [facility] [address] [place] [address] [place] [address] Joseph Quintana MD [address] [facility] [address] [facility] [address] [place], [place] [id number] Isaias Rios MD [address] [id number] Elevated serum creatinine; Hydronephrosis Discharge Disposition: Home or Self Care Social [...] suspected to have Coronavirus/COVID-19? No / Unsure 10/22/2022 7:28 AM BATTERY CHARGER TESTER documented as of this encounter Last Filed Vital Signs Vital Sign Reading Time Taken Comments Blood Pressure 129/70 10/22/2022 12:15 PM BATTERY CHARGER TESTER Pulse 61 10/22/2022 11:30 AM BATTERY CHARGER TESTER Temperature 37.2 ??C (98.9 ??F) 10/22/2022 8:00 AM CS T Respiratory Rate 15 10/22/2022 11:00 AM BATTERY CHARGER TESTER Oxygen Saturation 95% 10/22/2022 12:15 PM BATTERY CHARGER TESTER Inhaled Oxygen Concentration - - Weight 136.1 kg (300 lb) 10/22/2022 8:00 AM BATTERY CHARGER TESTER Height 182.9 cm (6') 10/22/2022 8:00 AM BATTERY CHARGER TESTER Body Mass Index 40.69 10/22/2022 8:00 AM BATTERY CHARGER TESTER documented in this encounter Discharge Instructions * Discharge Instructions* Catrina Ford RN - 10/22/2022 11:41 AM BATTERY CHARGER TESTER [facility] Discharge Instructions for Nephrostogram After you go home: Have an adult stay with you for 24 hours. Drink plenty of fluids. Resume a regular diet unless otherwise ordered by your physician. For 24 Hours: Relax and take it easy. Do not drive or operate machines at home or at work. No alcohol for 24 hours. Do not make any important or legal decisions. Do not do any strenuous exercise or lifting greater that 10 lbs for at least 2 days following your procedure. CALL THE PHYSICIAN IF: You start bleeding from the procedure site. If you do start to bleed from the site lie down and hold some pressure on the site. Your physician will tell you if you need to return to the hospital. You develop nausea or vomiting. You develop hives or a rash or any unexplained itching. You can remove the dressing after 24 hours. [facility] INTERVENTIONAL RADIOLOGY DEPARTMENT Procedure Physician: Dr. Rios Date:October 22, 2022 Telephone Numbers: [phone] Tuesday-Tuesday 7:30 am to 4:00 pm [phone] After 4:30 PM Tuesday-Tuesday, Weekends and Holidays. Ask for Interventional Radiologiston Call. Someone is available 24 hours a day. [facility] toll free number: Tuesday- Tuesday 8:00AM -4:30PM. ERY CHARGER TESTER documented in this encounter Medications at Time of Discharge Medication Sig Dispensed Refills Start Date End Date carvedilol 6.25 MG PO tabletIndications:HTN, kidney transplant [...] Inject 50 Units Subcutaneous every evening 0 losartan 100 MG PO tablet Take 1 tablet (100 mg) by mouth daily 90 tablet 3 10/09/2019 mycophenolate (GENERIC EQUIVALENT) 250 MG capsuleIndications:Rachid baker transplanted,- donor kidney transplant recipient TAKE THREE CAPSULES BY MOUTH TWICE A DAY 180 capsule 11 10/15/2022 rosuvastatin (CRESTOR) 10 MG tabletIndications:DM (diabetes mellitus), [...] 11 10/15/2022 11/03/2022 PROGRAF (BRAND) 1 MG capsuleIndications:Kid olivia transplanted,- donor kidney transplant recipient TAKE ONE CAPSULE BY MOUTH ONCE DAILY (TOTAL DOSE = 1MG IN THE MORNING AND 0.5MG IN THE EVENING) 30 capsule 11 10/15/2022 11/03/2022 documented as of this encounter Progress Notes * Catrina Ford RN - 10/22/2022 12:24 PM CST Patient discharged at 1215 via wheelchair. Ambulated with walker to bathroom, voided. VSS. Eating and drinking. Denies pain. RLQ site, no bleeding, dry, intact. Discharge instructions gone over, patient reports understanding. ERY CHARGER TESTER * Catrina Ford RN - 10/22/2022 11:42 AM CST Patient arrived from s/t nephrostogram. VSS, alert and oriented. Orders for bedrest until 12pm. Eating and drinking. BG 268, patient self administered short acting insulin per his orders. RLQ dressing C/D/I. ERY CHARGER TESTER * Catrina Ford RN - 10/22/2022 9:10 AM CST Prep completed for right nephrostomy tube placement. Patient type II diabetic, held am long acting and short acting insulin, BG at 0815 282, INR 1.36. Took AM Eliquis per instructions. IV in L FA, infusing. Voided. 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 Consent signed. Friend Tete in room with [phone] ERY CHARGER TESTER documented in this encounter Procedure Notes * Isaias Rios MD - 10/22/2022 10:54 AM CSTAssociated Order(s): IR Procedure Note [facility] Procedure: IR Procedure Note Date/Time: 10/22/2022 10:53 AM Performed by: Isaias Rios MD Authorized by: Isaias Rios MD UNIVERSAL PROTOCOL Site Marked: NA Prior Images [...] the procedure a time out was called [place] Protocol: the Joint Commission [place] Protocol was followed Preparation: Patient was prepped and draped in usual sterile fashion ESBL (mL): 0 ANESTHESIA Anesthesia: Local infiltration Local Anesthetic: Lidocaine 1% without epinephrine Anesthetic Total (mL): 8 SEDATION Patient Sedated: Yes Sedation Type: Moderate (conscious) sedation Sedation: Fentanyl and midazolam Vital signs: Vital signs monitored during sedation Fluoroscopy Time: 1 minute(s) See dictated procedure note for full details. Findings: Chiba needle placed into a right lower quadrant renal transplant mid kidney anterior calyx. Antegrade nephrostogram performed through the needle. Needle removed. Sterile dressing applied. Specimens: none Complications: None Condition: Stable PROCEDURE Patient Tolerance: Patient tolerated the procedure well with no immediate complications Length of time physician/provider present for 1:1 monitoring during sedation: 15 ERY CHARGER TESTER documented in this encounter Miscellaneous Notes * IR Note - Radha Calhoun RN - 10/22/2022 10:14 AM CST Patient Name: Diego Guthrie Today's Date: 10/22/2022 Procedure: right transplant kidney nephrostogram Proceduralist: Dr Antolin Rios Sedation start time: 1035 Sedation end time: 1050 Sedation medications administered: 1 mg versed, 50 mcg fentanyl Total sedation time: 15 min Sedation Notes: none Procedure start time: 1037 Procedure end time: 1050 Report given to: Gladis MCFADDEN Public Relations Officer: none Other Notes: Pt arrived to IR room 4 from . Consent reviewed, pt confirmed. Pt denies any questions or concerns regarding procedure. Pt positioned supine and monitored per protocol. RLQ site cleansed and dressed per protocol. Pt tolerated procedure without any noted complications. Pt transferred back to . ERY CHARGER TESTER * Pre-Procedure - Shiva Villalpando - 10/22/2022 8:16 AM CST GENERAL PRE-PROCEDURE: Procedure: Right transplant nephrostogram and possible PNT placement Date/Time: 10/22/2022 8:16 AM Written consent obtained?: Yes Risks and benefits: [...] data, medications, and the plan for sedation ERY CHARGER TESTER documented in this encounter Plan of Treatment Not on file documented as of this encounter Procedures Procedure Name Priority Date/Time Associated Diagnosis Comments GLUCOSE BY METER Routine 10/22/2022 11:2 1 AM BATTERY CHARGER TESTER IR NEPHROSTOMY TUBE PLACEMENT RIGHT Routine 10/22/2022 11:04 AM BATTERY CHARGER TESTER Elevated serum creatinine Hydronephrosis IR PROCEDURE NOTE Routine 10/22/2022 10: 53 AM BATTERY CHARGER TESTER GLUCOSE BY METER Routine 10/22/2022 8:32 AM BATTERY CHARGER TESTER INR STAT 10/22/2022 8:25 AM BATTERY CHARGER TESTER documented in this encounter Results * (ABNORMAL) Glucose by meter (10/22/2022 11:21 AM BATTERY CHARGER TESTER) Pathologist [facility] GLUCOSE BY METER POCT 268(H) 70 - 99 mg/dL 10/22/2022 11:28 AM BATTERY CHARGER TESTER [facility] Blood, Capillary BLOOD SPECIMEN / Unknown 10/22/2022 11:21 AM BATTERY CHARGER TESTER 10/22/2022 11:28 AM BATTERY CHARGER TESTER Joseph Quintana MD LAB - BEAKER POC T [facility] P[facility] Core Lab [address] [facility], [address] [place] [id number] [phone] * IR Nephrostomy Tube Placement Right (10/22/2022 11:04 AM BATTERY CHARGER TESTER) Anatomical Region Laterality Modality Abdomen/Pelvis Radio Fluoroscop y Impressions 10/22/2022 11:31 AM BATTERY CHARGER TESTER IMPRESSION: 1. Chiba needle placed into a right lower quadrant renal transplant mid kidney anterior calyx under ultrasound guidance. 2. Antegrade nephrostogram demonstrated adequate emptying. No filling defect. No percutaneous nephrostomy tube placed. 3. If there is still concern for urinary obstruction, Nuclear Medicine renogram could be performed for further evaluation. ISAIAS RIOS MD Narrative 10/22/2022 11:31 AM BATTERY CHARGER TESTER PROCEDURES 10/22/2022 11:04 AM: 1. Ultrasound guided right lower quadrant renal transplant Chiba needle nephrostomy. 2. Antegrade nephrostogram through needle. CLINICAL HISTORY: Image guided antegrade nephrostogram with possible PNT placement if obstructed; Elevated serum creatinine; Hydronephrosis. COMPARISONS: Ultrasound 03/11/2014. REFERRING PROVIDER: JOSEPH QUINTANA STEVEN ATTENDING RADIOLOGIST: Samir Rios MD I, ISAIAS RIOS MD, attest that I was present in the procedure room for the entire procedure. MEDICATIONS: The patient was placed on continuous monitoring. Vital signs and sedation were monitored by the Interventional Radiology nurse under the Attending Physician's supervision. 1 mg Versed and 50 mcg Fentanyl IV. The patient remained stable throughout the procedure. ATTENDING [id number] SEDATION TIME: 15 minutes. FLUOROSCOPY TIME: 0.3 minutes. DOSE: 190 mGy. CONTRAST: 8 mL Visipaque 320. PROCEDURE: The patient understood the limitations, alternatives, and risks of the procedure and requested the procedure be performed. Both written and verbal consent were obtained. The right lower quadrant was prepped and draped in the usual sterile fashion. 1% lidocaine without epinephrine was used for local anesthesia. Under ultrasound guidance, a Chiba needle was advanced into a right lower quadrant renal transplant mid kidney anterior calyx. Ultrasound image documenting needle placement was saved in the patient's record. Antegrade nephrostogram performed through the needle. Needle removed. Sterile dressing applied. No immediate complication. FINDINGS: Prompt emptying through the transplant ureter to the bladder. No significant residual in delayed imaging. No filling defect. Procedure Note Isaias Rios MD - 10/22/2022 PROCEDURES 10/22/2022 11:04 AM: 1. Ultrasound guided right lower quadrant renal transplant Chiba needle nephrostomy. 2. Antegrade nephrostogram through needle. CLINICAL HISTORY: Image guided antegrade nephrostogram with possible PNT placement if obstructed; Elevated serum creatinine; Hydronephrosis. COMPARISONS: Ultrasound 03/11/2014. REFERRING PROVIDER: JOSEPH QUINTANA STEVEN ATTENDING RADIOLOGIST: Samir Rios MD I, ISAIAS RIOS MD, attest that I was present in the procedure room for the entire procedure. MEDICATIONS: The patient was placed on continuous monitoring. Vital signs and sedation were monitored by the Interventional Radiology nurse under the Attending Physician's supervision. 1 mg Versed and 50 mcg Fentanyl IV. The patient remained stable throughout the procedure. ATTENDING [id number] SEDATION TIME: 15 minutes. FLUOROSCOPY TIME: 0.3 minutes. DOSE: 190 mGy. CONTRAST: 8 mL Visipaque 320. PROCEDURE: The patient understood the limitations, alternatives, and risks of the procedure and requested the procedure be performed. Both written and verbal consent were obtained. The right lower quadrant was prepped and draped in the usual sterile fashion. 1% lidocaine without epinephrine was used for local anesthesia. Under ultrasound guidance, a Chiba needle was advanced into a right lower quadrant renal transplant mid kidney anterior calyx. Ultrasound image documenting needle placement was saved in the patient's record. Antegrade nephrostogram performed through the needle. Needle removed. Sterile dressing applied. No immediate complication. FINDINGS: Prompt emptying through the transplant ureter to the bladder. No significant residual in delayed imaging. No filling defect. IMPRESSION: 1. Chiba needle placed into a right lower quadrant renal transplant mid kidney anterior calyx under ultrasound guidance. 2. Antegrade nephrostogram demonstrated adequate emptying. No filling defect. No percutaneous nephrostomy tube placed. 3. If there is still concern for urinary obstruction, Nuclear Medicine renogram could be performed for further evaluation. ISAIAS RIOS MD Joseph Quintana MD IMG IR ORDERABLE S * IR Procedure Note (10/22/2022 10:53 AM BATTERY CHARGER TESTER) [facility] - 10/22/2022 10:53 AM BATTERY CHARGER TESTER Isaias Rios MD ? 10/22/2022 10:54 AM [facility] Procedure: IR Procedure Note Date/Time: 10/22/2022 10:53 AM Performed by: Isaias Rios MD Authorized by: Isaias Rios MD UNIVERSAL PROTOCOL Site Marked: NA Prior Images [...] procedure a time out was called ?? [place] Protocol: the Joint Commission [place] Protocol was followed ?? Preparation: Patient was prepped and draped in usual sterile fashion ?? ESBL (mL): ??0 ANESTHESIA Anesthesia: Local infiltration Local Anesthetic: ??Lidocaine 1% without epinephrine Anesthetic Total (mL): ??8 SEDATION Patient Sedated: Yes ?? Sedation Type: ??Moderate (conscious) sedation Sedation: ??Fentanyl and midazolam Vital signs: Vital signs monitored during sedation ?? Fluoroscopy Time: 1 minute(s) See dictated procedure note for full details. Findings: Chiba needle placed into a right lower quadrant renal transplant mid kidney anterior calyx. Antegrade nephrostogram performed through the needle. Needle removed. Sterile dressing applied. Specimens: none Complications: None Condition: Stable PROCEDURE Patient Tolerance: ??Patient tolerated the procedure well with no immediate complications Length of time physician/provider present for 1:1 monitoring during sedation: 15 Isaias Rios MD PROCEDURE/MINOR CARLOS GICAL ORDERABLES [facility] [address] [place], [place] [id number] [place] [address] * (ABNORMAL) Glucose by meter (10/22/2022 8:32 AM BATTERY CHARGER TESTER) GLUCOSE BY METER POCT 282(H) 70 - 99 mg/dL 10/22/2022 8:38 AM BATTERY CHARGER TESTER [facility] Blood, Capillary BLOOD SPECIMEN / Unknown 10/22/2022 8:32 AM BATTERY CHARGER TESTER 10/22/2022 8:38 AM BATTERY CHARGER TESTER Joseph Quintana MD LAB - BEAKER POC T [facility] P[facility] Core Lab [address] [facility], Room [address] [place] [phone], [place] [phone] * (ABNORMAL) INR (10/22/2022 8:25 AM BATTERY CHARGER TESTER) INR 1.36(H) 0.85 - 1.15 10/22/2022 8:53 AM BATTERY CHARGER TESTER [facility] Blood VENOUS LINE / Unknown Venipuncture / Unknown 10/22/2022 8:25 AM BATTERY CHARGER TESTER 10/22/2022 8:28 AM BATTERY CHARGER TESTER Harriet Dale APRN [facility] - BLOOD ORDERABLES [facility] [place] Core Lab [address] [facility], [address] [place] [address], [place] [phone] documented in this encounter Visit Diagnoses Diagnosis Elevated serum creatinine Other nonspecific findings on examination of blood Hydronephrosis documented in this encounter Administered Medications Inactive [...] provider., Administer over 2 Minutes, Starting on Tue10/22/22 at 0815, Doses can be exceeded under direct oversight of patient by physician., IR Intra-procedure $Given 10/22/2022 10:35 AM BATTERY CHARGER TESTER 50 mcg iodixanol (VISIPAQUE 320) injection 100 mL 100 mL, Intravenous, ONCE, On Tue10/22/22 at 1030, For 1 dose $Given 10/22/2022 11:05 AM BATTERY CHARGER TESTER 5 mLs lidocaine 1 % 1-30 mL 1-30 mL, Intradermal, ONCE PRN, local anesthetic. When verbally ordered by prescriber during the procedure., Starting on Tue10/22/22 at 0815, For 1 dose, Dose to be divided into smaller volumes appropriate for the procedure. Provider to administer intradermally. Dose to be divided into smaller volumes appropriate for the procedure., IR Intra-procedure $Given by Other Clinician 10/22/2022 10:57 AM BATTERY CHARGER TESTER 6 mLs midazolam (VERSED) injection 0.5-2 mg 0.5-2 mg, Intravenous, Administer over 1 Minutes, EVERY 4 MIN PRN, sedation, If inadequate response may repeat 0.5 mg IV slowly every 4 minutes PRN sedation until desired response; when verbally requested by provider., Starting on Tue10/22/22 at 0815, Doses can be exceeded under direct oversight of patient by physician. This drug may cause significant respiratory depression. Monitor respiratory status and vital signs carefully for 1 hour after each dose., IR Intra-procedure $Given 10/22/2022 10:35 AM BATTERY CHARGER TESTER 1 mg sodium chloride 0.9% infusion at 75 mL/hr, Intravenous, CONTINUOUS, IF PATIENT IS RECEIVING RENAL DIALYSIS, RN to reduce rate of 0.9 % sodium chloride IV solution to 10 mL /hour (TKO) IV infusion to prevent fluid overload., IR Pre-procedure, Starting on Tue10/22/22 at 0800, Until Tue10/22/22 at 1318 $New Bag 10/22/2022 8:48 AM BATTERY CHARGER TESTER 75 mL/hr documented in this encounter Active and Recently Administered Medications Times are shown in BATTERY CHARGER TESTER. Scheduled Medication Order 10/20/2022 10/21/2022 10/22/2022 iodixanol (VISIPAQUE 320) injection 100 mL (COMPLETED) 100 mL, Intravenous, ONCE, On Tue10/22/22 at 1030, For 1 dose 1105 ($Given - Provi toribio: Sina Hung) Continuous Medication Order 10/20/2022 10/21/2022 10/22/2022 sodium chloride 0.9% infusion (CANCELED) at 75 mL/hr, Intravenous, CONTINUOUS, IF PATIENT IS RECEIVING RENAL DIALYSIS, RN to reduce rate of 0.9 % sodium chloride IV solution to 10 mL /hour (TKO) IV infusion to prevent fluid overload., IR Pre-procedure, Starting on Tue10/22/22 at 0800, Until Tue10/22/22 at 1318 0848 ($New Bag - Pro vider: Catrina Ford, BOGDAN) PRN Medication Order 10/20/2022 10/21/2022 10/22/2022 fentaNYL (PF) (SUBLIMAZE) injection 25-50 mcg (CANCELED) 25-50 mcg, Intravenous, EVERY 5 MIN PRN, severe pain (7-10), If inadequate response may repeat 25 mcg IV slowly every 5 min PRN severe pain; when verbally requested by provider., Administer over 2 Minutes, Starting on Tue10/22/22 at 0815, Doses can be exceeded under direct oversight of patient by physician., IR Intra-procedure 1035 ($Given - Provi toribio: Radha Calhoun, BOGDAN) lidocaine 1 % 1-30 mL (COMPLETED) 1-30 mL, Intradermal, ONCE PRN, local anesthetic. When verbally ordered by prescriber during the procedure., Starting on Tue10/22/22 at 0815, For 1 dose, Dose to be divided into smaller volumes appropriate for the procedure. Provider to administer intradermally. Dose to be divided into smaller volumes appropriate for the procedure., IR Intra-procedure 1057 ($Given by Jayleen low Clinician - Provider: Radha Calhoun RN - Comment: Antolin Rios) midazolam (VERSED) injection 0.5-2 mg (CANCELED) 0.5-2 mg, Intravenous, Administer over 1 Minutes, EVERY 4 MIN PRN, sedation, If inadequate response may repeat 0.5 mg IV slowly every 4 minutes PRN sedation until desired response; when verbally requested by provider., Starting on Tue10/22/22 at 0815, Doses can be exceeded under direct oversight of patient by physician. This drug may cause significant respiratory depression. Monitor respiratory status and vital signs carefully for 1 hour after each dose., IR Intra-procedure 1035 ($Given - Provi toribio: Radha Calhoun RN) documented in this encounter Care Teams Laundry Laborer Relationship Specialty Start Date End Date Momo Forbes MD PCP - General Family Practice 01/02/14 documented as of this encounter
--- OUTSIDE RECORDS SUMMARY | 2023-08-31 13:11 | XMS_ITS | Encounter Summary ---
Author Name Unknown Organization [place] Address [address] [place] [address]. [place] [address] Care Team Providers Care Robotics Technician Name Role Phone Momo Forbes MD Primary Care Provider [phone] Reason for Referral * Therapeutic Imaging/IR (Emergency: 1-2 Days) - Pending Review Specialty Diagnoses / Procedures Referred By Contac t Referred To Contact Radiology. Diagnoses Elevated serum creatinine Hydronephrosis Procedures IR Referral outpatient referral IR Referral outpatient referral Joseph Quintana MD [address] [place] [address] [address] [facility] [address] [place] [address] Referral ID Status Reason Start Date Expiration Date V isits Requested Visits Authorized [id number] Pending Review 10/20/2022 10/20/2023 1 1 AVING PRESS OPERATOR Reason for Visit * Reason Onset Date Comments Transplant 10/19/2022 Encounter Details Date Type Department Care Team (Late st Contact Info) Description 10/19/[address] [facility] Transplant Clinic [address] [place] [address] Gretta Frias RN Transplant Social History Tobacco Use Types [...] Telephone Encounter - Gretta Frias RN - 10/20/2022 10:16 AM CST Images from the original note were not included. Satish Gómez MD Sveiven, Sara, RN It is not clear if U/S showed distended bladder. If bladder is not distended then concern would be for ureteral stenosis. Please obtain BK PCR blood, bring up for discussion tmrw afternoon. I think the easiest thing would be just to place a bose and if things don't improve he would either need urology here to place a stent retrograde vs IR for PNT and anterograde nephrostogram. ?? Previous Messages ----- Message ----- From: Gretta Frias RN Sent: 10/19/2022 ?? 1:33 PM ENGRAVING PRESS OPERATOR To: Satish Gómez MD Subject: elevated creatinine, hydro ? Dr Dalia Cortez Ian Guthrie is sp kidney 8 y 8 m. ?? Recently discharged from TCU after being admitted to OSH with + COVID, hypoxia, possible UTI, community acquired PNA. He was treated with dexamethasone, received bebtelovimab. Was also treated for UTI with double strength bactrim in July at OSH ??abnormal CT scan obtained while in ED at [facility] July 2022. This was discussed at [facility] last month- advised patient to obtain tx US. ??Impression is available in care everywhere. ??I have requested the images Impression: Moderate Hydronephroses of the tx kidney Creatinine now 2.6 on 10/05/2022, baseline 1.4-1.7 He did see Urology locally and had a cystoscopy done yesterday. I have a call out to the patient, however have not reached him today to discuss. ??Please advise. Gretta Frias RN OUTCOME: Patient states he is feeling well. Denies abdominal pain. No change in UOP. Feels like he is emptying bladder. Endorses intermittent lower back pain. States this is not new Drinking ~60 oz daily Denies UTI s/s Denies recent illness Will update provider. Requested US imaged be pushed through in PACS today. Gretta Frias RN Foam Cutting Supervisor [phone] DISCUSSED AT CHRONIC REVIEW: Per Dr Arenas and Dr Quintana, Place order for emergent PNT via IR, if unable to do in IR in the next 1-2 days, patient will need to be admitted. Patient and aware of PNT orders. Will ensure he is scheduled in the next 1- [address] orders for admission Gretta Frias RN Foam Cutting Supervisor [phone] AVING PRESS OPERATOR * Telephone Encounter - Tommie Alcazar - 10/19/2022 4:44 PM CST Patient Call: General Route to CHIEF CLERK Reason for call: called in regards to touch base and return call. Call back needed? Yes Return Call Needed Same as documented in contacts section When to return call?: Same day: Route High Priority AVING PRESS OPERATOR * Addendum Note - Gretta Frias RN - 10/19/2022 4:44 PM CSTAddended by: GRETTA FRIAS on: 10/20/2022 03:57 PM Modules accepted: Orders AVING PRESS OPERATOR documented in this encounter Plan of Treatment Not on file documented as of this encounter Visit Diagnoses Diagnosis Elevated serum creatinine- Primary Other nonspecific findings on examination of blood Hydronephrosis documented in this encounter Care Teams Robotics Technician Relationship Specialty Start Date End Date Momo Forbes MD PCP - General Family Practice 01/02/14 documented as of this encounter
--- OUTSIDE RECORDS SUMMARY | 2023-08-31 13:11 | XMS_ITS | Encounter Summary ---
Author Name Unknown Organization [place] Address [address] [place] [address] Care Team Providers Care Manager Of Compensation Name Role Phone Momo Forbes MD Primary Care Provider Encounter Details Date Type Department Care Team (Late st Contact Info) Description 10/19/2022 External Order Results [facility] [address] [place] [address] Outside, Provider Social History Tobacco Use Types [...] Coronavirus/COVID-19? No / Unsure 10/22/2022 7:28 AM MEDIA CENTER DIRECTOR SCHOOL documented as of this encounter Plan of Treatment Not on file documented as of this encounter Visit Diagnoses Not on filedocumented in this encounter Care Teams Manager Of Compensation Relationship Specialty Start Date End Date Momo Forbes MD PCP - General Family Practice 01/02/14 documented as of this encounter
--- OUTSIDE RECORDS SUMMARY | 2023-08-31 13:11 | XMS_ITS | Encounter Summary ---
Author Name Unknown Organization [place] Address [address] [place] [address]. [place] [address] Care Team Providers Care Exploration Manager Name Role Phone Momo Forbes MD Primary Care Provider [phone] Encounter Details Date Type Department Care Team (Late st Contact Info) Description 10/25/2022 12:30 PM VICE PRESIDENT QUALITY IMPROVEMENT [facility] [address] [place] [address] Kidney transplanted Social History Tobacco [...] Coronavirus/COVID-19? No / Unsure 10/25/2022 12:16 PM VICE PRESIDENT QUALITY IMPROVEMENT documented as of this encounter Plan of Treatment Not on file documented as of this encounter Procedures Procedure Name Priority Date/Time Associated Diagnosis Comments CBC WITH PLATELETS Routine 10/25/2022 3: 18 PM VICE PRESIDENT QUALITY IMPROVEMENT Kidney transplanted TACROLIMUS BY TANDEM MASS SPECTROMETRY Routine 10/25/2022 2:46 PM VICE PRESIDENT QUALITY IMPROVEMENT Kidney transplanted BASIC METABOLIC PANEL Routine 10/25/2022 2:42 PM VICE PRESIDENT QUALITY IMPROVEMENT Kidney transplanted documented in this encounter Results * (ABNORMAL) CBC with platelets (10/25/2022 3:18 PM VICE PRESIDENT QUALITY IMPROVEMENT) WBC Count 6.7 4.0 - 11.0 10e3/uL 10/25/2022 3:20 PM VICE PRESIDENT QUALITY IMPROVEMENT [facility] RBC Count 5.16 4.40 - 5.90 10e6/uL 10/25/2022 3:20 PM VICE PRESIDENT QUALITY IMPROVEMENT [facility] Hemoglobin 13.9 13.3 - 17.7 g/dL 10/25/2022 3:20 PM VICE PRESIDENT QUALITY IMPROVEMENT [facility] Hematocrit 41.7 40.0 - 53.0 % 10/25/2022 3:20 PM VICE PRESIDENT QUALITY IMPROVEMENT [facility] MCV 81 78 - 100 fL 10/25/2022 3:20 PM VICE PRESIDENT QUALITY IMPROVEMENT [facility] MCH 26.9 26.5 - 33.0 pg 10/25/2022 3:20 PM VICE PRESIDENT QUALITY IMPROVEMENT [facility] MCHC 33.3 31.5 - 36.5 g/dL 10/25/2022 3:20 PM VICE PRESIDENT QUALITY IMPROVEMENT [facility] RDW 15.4(H) 10.0 - 15.0 % 10/25/2022 3:20 PM VICE PRESIDENT QUALITY IMPROVEMENT [facility] Platelet Count 115(L) 150 - 450 10e3/uL 10/25/2022 3:20 PM VICE PRESIDENT QUALITY IMPROVEMENT [facility] Blood BLOOD SPECIMEN / Unknown Venipuncture / Unknown 10/25/2022 3:18 PM VICE PRESIDENT QUALITY IMPROVEMENT 10/25/2022 3:18 PM VICE PRESIDENT QUALITY IMPROVEMENT Joseph Quintana MD LAB - BLOOD [facility] [address] [facility] Lab (no room number, 1st floor of clinic) [place] [address], [facility] [phone] * Tacrolimus by Tandem Mass Spectrometry (10/25/2022 2:46 PM VICE PRESIDENT QUALITY IMPROVEMENT) Pathologist [facility] Tacrolimus by Tandem Mass Spectrometry 8.7 5.0 - 15.0 ug/L 10/25/2022 10:35 PM VICE PRESIDENT QUALITY IMPROVEMENT [facility] Comment: Tacrolimus Reference Range [...] post transplant: 5-8 Tacrolimus Last Dose Date 10/24/2022 10/25/2022 10:35 PM VICE PRESIDENT QUALITY IMPROVEMENT [facility] Tacrolimus Last Dose Time 9:00 PM 10/25/2022 10:35 PM VICE PRESIDENT QUALITY IMPROVEMENT [facility] Blood STRUCTURE OF RIGHT UPPER LIMB / Unknown Venipuncture / Unknown 10/25/2022 2:46 PM VICE PRESIDENT QUALITY IMPROVEMENT 10/25/2022 2:46 PM VICE PRESIDENT QUALITY IMPROVEMENT Narrative [facility] - 10/25/2022 10:35 PM VICE PRESIDENT QUALITY IMPROVEMENT This test was developed and its performance characteristics determined by the [facility], [...] [facility] [address] [facility], [address] [place] [address], [facility] [phone] * (ABNORMAL) Basic metabolic panel (10/25/2022 2:42 PM VICE PRESIDENT QUALITY IMPROVEMENT) Sodium 136 136 - 145 mmol/L 10/25/2022 6:50 PM VICE PRESIDENT QUALITY IMPROVEMENT [facility] Potassium 4.5 3.4 - 5.3 mmol/L 10/25/2022 6:50 PM VICE PRESIDENT QUALITY IMPROVEMENT [facility] Chloride 100 98 - 107 mmol/L 10/25/2022 6:50 PM VICE PRESIDENT QUALITY IMPROVEMENT [facility] Carbon Dioxide (CO2) 24 22 - 29 mmol/L 10/25/2022 6:50 PM VICE PRESIDENT QUALITY IMPROVEMENT [facility] Anion Gap 12 7 - 15 mmol/L 10/25/2022 6:50 PM VICE PRESIDENT QUALITY IMPROVEMENT [facility] Urea Nitrogen 45.2(H) 8.0 - 23.0 mg/dL 10/25/2022 6:50 PM VICE PRESIDENT QUALITY IMPROVEMENT [facility] Creatinine 2.53(H) 0.67 - 1.17 mg/dL 10/25/2022 6:50 PM VICE PRESIDENT QUALITY IMPROVEMENT [facility] Calcium 10.3(H) 8.8 - 10.2 mg/dL 10/25/2022 6:50 PM VICE PRESIDENT QUALITY IMPROVEMENT [facility] Glucose 342(H) 70 - 99 mg/dL 10/25/2022 6:50 PM VICE PRESIDENT QUALITY IMPROVEMENT [facility] GFR Estimate 26(L) >60 mL/min/1.7 3m2 10/25/2022 6:50 PM VICE PRESIDENT QUALITY IMPROVEMENT [facility] Comment:eGFR calculated us2020 CKD-EPI equation. Blood BLOOD SPECIMEN / Unknown Venipuncture / Unknown 10/25/2022 2:42 PM VICE PRESIDENT QUALITY IMPROVEMENT 10/25/2022 2:42 PM VICE PRESIDENT QUALITY IMPROVEMENT Joseph Quintana MD LAB - BLOOD [facility] [address] [facility] [address] [facility], [address] [place] [address], [facility] [phone] documented in this encounter Visit Diagnoses Diagnosis Kidney transplanted Kidney replaced by transplant documented in this encounter Care Teams Exploration Manager Relationship Specialty Start Date End Date Momo Forbes MD PCP - General Family Practice 01/02/14 documented as of this encounter
--- OUTSIDE RECORDS SUMMARY | 2023-08-31 13:11 | XMS_ITS | Encounter Summary ---
Author Name Unknown Organization [place] Address [address] [place] [address] Care Team Providers Care Engineering Documentation Specialist Name Role Phone Momo Forbes MD Primary Care Provider + [phone] Encounter Details Date Type Department Care Team (Late st Contact Info) Description 10/19/2022 External Order Results [facility] [address] [place] [address] Outside, Provider Social History Tobacco Use Types [...] Coronavirus/COVID-19? No / Unsure 10/22/2022 7:28 AM FAMILY PRACTITIONER documented as of this encounter Plan of Treatment Not on file documented as of this encounter Procedures Procedure Name Priority Date/Time Associated Diagnosis Comments CBC WITH PLATELETS & DIFFERENTIAL Routine 10/19/2022 11:00 AM FAMILY PRACTITIONER BASIC METABOLIC PANEL Routine 10/19/2022 11:00 AM FAMILY PRACTITIONER documented in this encounter Results * (ABNORMAL) CBC with Platelets & Differential (10/19/2022 11:00 AM FAMILY PRACTITIONER) WBC Count (External) 5.74 4.50 - 11.00 K/uL NON-INTERFACE D (ONBASE SCANS) RBC Count (External) 5.11 4.30 - 5.90 m/uL NON-INTERFACE D (ONBASE SCANS) Hemoglobin (External) 13.4(L) 13.5 - 17.5 gm/dL NON-INTERFACE D (ONBASE SCANS) Hematocrit (External) 42.6 37.0 - 53.0 % NON-INTERFACE D (ONBASE SCANS) MCV (External) 83 80 - 100 fl NON-INTERFACE D (ONBASE SCANS) MCH (External) 26 26 - 34 pg NON- INTERFACE D (ONBASE SCANS) MCHC (External) 32 32 - 36 gm/dL NON-INTERFACE D (ONBASE SCANS) Platelet Count (External) 128(L) 140 - 440 K/uL NON-INTERFACE D (ONBASE SCANS) RDW (External) 15.4 11.5 - 15.5 % NON-INTERFACE D (ONBASE SCANS) % Neutrophils (External) 66.8 42.0 - 72.0 % NON-INTERFACE D (ONBASE SCANS) % Lymphocytes (External) 20.2 20 - 44 % NON-INTERFACE D (ONBASE SCANS) % Monocytes (External) 7.7 0.0 - 11.0 % NON-INTERFACE D (ONBASE SCANS) % Eosinophils (External) 5.1 0.0 - 7.0 % NON-INTERFACE D (ONBASE SCANS) % Basophils (External) 0.2 0.0 - 3.0 % NON-INTERFACE D (ONBASE SCANS) Absolute Neutrophils (External) 3.84 1.7 - 7.0 K/uL NON-INTERFACE D (ONBASE SCANS) Absolute Lymphocytes (External) 1.16 0.90 - 2.90 K/uL NON-INTERFACE D (ONBASE SCANS) Absolute Monocytes (External) 0.40 0.00 - 0.90 K/uL NON-INTERFACE D (ONBASE SCANS) Absolute Eosinophils (External) 0.29 0.00 - 0.50 K/uL NON-INTERFACE D (ONBASE SCANS) Absolute Basophils (External) 0.01 0.00 - 0.30 K/uL NON-INTERFACE D (ONBASE SCANS) Blood BLOOD SPECIMEN / Unknown 10/19/2022 11:00 AM FAMILY PRACTITIONER Narrative [facility] - 10/21/2022 11:10 AM FAMILY PRACTITIONER Verified by Andrade Barajas on 10/21/2022. Provider Outside LAB - BLOOD ORDERABL ES [facility] NON-INTERFACED (ONBASE SCANS) * (ABNORMAL) Basic metabolic panel (10/19/2022 11:00 AM FAMILY PRACTITIONER) Sodium (External) 142 135 - 149 mmol/L NON-INTERFACED (ONBASE SCANS) Potassium (External) 4.4 3.6 - 5.1 mmol/L NON-INTERFACED (ONBASE SCANS) Chloride (External) 109 96 - 114 mmol/L NON-INTERFACED (ONBASE SCANS) CO2 (External) 23 20 - 32 mmol/L NON-INTERFACED (ONBASE SCANS) Urea Nitrogen (External) 50(H) 7 - 30 mg/dL NON-INTERFACED (ONBASE SCANS) Creatinine (External) 2.8(H) 0.5 - 1.5 mg/dL NON-INTERFACED (ONBASE SCANS) GFR Estimated (External) 23 mL/min NON-INTERFACED (ONBASE SCANS) Calcium (External) 9.8 8.4 - 10.6 mg/dL NON-INTERFACED (ONBASE SCANS) Glucose (External) 277(H) 60 - 115 mg/dL NON-INTERFACED (ONBASE SCANS) Blood BLOOD SPECIMEN / Unknown 10/19/2022 11:00 AM FAMILY PRACTITIONER Narrative [facility] - 10/21/2022 11:10 AM FAMILY PRACTITIONER Verified by Andrade Barajas on 10/21/2022. Provider Outside LAB - BLOOD ORDERABL ES [facility] NON-INTERFACED (ONBASE SCANS) documented in this encounter Visit Diagnoses Not on filedocumented in this encounter Care Teams Engineering Documentation Specialist Relationship Specialty Start Date End Date Momo Forbes MD PCP - General Family Practice 01/02/14 documented as of this encounter
--- OUTSIDE RECORDS SUMMARY | 2023-08-31 13:11 | XMS_ITS | Encounter Summary ---
Author Name Unknown Organization [place] Address [address] [place] [address]. [place] [address] Care Team Providers Care Parts Assembler Name Role Phone Momo Forbse MD Primary Care Provider + [phone] Reason for Visit * Reason Onset Date Comments Transplant Committee Review 10/20/2022 Encounter Details Date Type Department Care Team (Late st Contact Info) Description 10/20/2022 Team Conference [facility] [address] [place] [phone] Alana Calderon LPN Social History Tobacco Use Types Packs/Day Years [...] Coronavirus/COVID-19? No / Unsure 10/22/2022 7:28 AM FIREWALL ADMINISTRATOR documented as of this encounter Miscellaneous Notes * Telephone Encounter - Alana Calderon LPN - 10/20/2022 4:56 PM CST [facility] Team Conference Date: 10/20/2022 Certified Adapted Physical Educator: Gretta Peacock Attendees: [] Dr. Quintana [] Arline Leigh RN [] Cristy Chen LPN [] Dr. Richey [] Isa Ly RN [] Alana Calderon LPN [] Dr. Herrera [] Gladis Man RN [] Dr. Gómez [] Amanda Holland RN [] Destin Tom, PharmD [] Dr. Myles [] Gretta Peacock RN [] Dr. Rabago [] Cosmo Recinos RN [] Dr. Guerrreo [] Barbie Ugalde, BOGDAN [] Nita Garcia RN [] Dr. Dangelo [] Nazia Jacobson RN [] Dr. Holland [] Yudi Porras RN [] Dr. Merchant [] Inez Chávez RN [] Radha Kaufman NP [] Catrina Dinh RN Verbal Plan Read Back: Urgent PNT with in 2 days Routed to RN Coordinator Alana Calderon LPN WALL ADMINISTRATOR documented in this encounter Plan of Treatment Not on file documented as of this encounter Visit Diagnoses Not on filedocumented in this encounter Care Teams Parts Assembler Relationship Specialty Start Date End Date Momo Forbes MD PCP - General Family Practice 01/02/14 documented as of this encounter
--- OUTSIDE RECORDS SUMMARY | 2023-08-31 13:11 | XMS_ITS | Encounter Summary ---
Author Name Unknown Organization [place] Address [address] [facility] [place] [address] Care Team Providers Care Counter Molder Name Role Phone Momo Forbes MD Primary Care Provider + [phone] Reason for Referral * Therapeutic Imaging/IR (Routine) - Closed Specialty Diagnoses / Procedures Referred By Contac t Referred To Contact Radiology. Diagnoses Elevated serum creatinine Hydronephrosis Procedures IR Nephrostomy Tube Placement Right Kei Quintana MD [address] [facility] [address] [facility] [address] [place] [address] Referral ID Status Reason Start Date Expiration Date Visits Re quested Visits Authorized [id number] Closed 10/21/2022 10/21/2023 1 1 SH VISITOR Encounter Details Date Type Department Care Team (Late st Contact Info) Description 10/21/2022 Orders Only [facility] Interventional Radiology [address] [place] [phone] Harriet Dale APRN PUGGER HELPER [address] [place] [address] Elevated serum creatinine; Hydronephrosis Social History Tobacco Use Types Packs/Day Years [...] as of this encounter Consult Notes * Harriet Dale APRN CNP - 10/21/2022 7:07 AM CSTAssociated Order(s): IR REFERRAL Images from the original note were not included. Outpatient IR Referral Patient is a 72 y/o male with a PMH [...] was reviewed at transplant committee review. US 10/05/22 Moderate hydronephrosis of the transplant kidney in the right lower quadrant. Creatinine 2.6 10/05/22 Case and imaging US 10/05/[address] England from IR who recommends a nephrostogram and if obstruction a PNT can be placed Procedure orders placed for antegrade nephrostogram with possible PNT placement. No hold asa for transplant kidney. If requesting team would like samples sent for anything else please enter them prior to scheduled procedure. Primary team Dr. Quintana made aware of IR recommendations via iPipeline messaging. Harriet Dale DNP, APRN Interventional Radiology IR on-call pager: [phone] SH VISITOR documented in this encounter Plan of Treatment Not on file documented as of this encounter Results * IR Nephrostomy Tube Placement Right (10/22/2022 11:04 AM PARISH VISITOR) Anatomical Region Laterality Modality Abdomen/Pelvis Radio Fluoroscop y Impressions 10/22/2022 11:31 AM PARISH VISITOR IMPRESSION: 1. Chiba needle placed into a right lower quadrant renal transplant mid kidney anterior calyx under ultrasound guidance. 2. Antegrade nephrostogram demonstrated adequate emptying. No filling defect. No percutaneous nephrostomy tube placed. 3. If there is still concern for urinary obstruction, Nuclear Medicine renogram could be performed for further evaluation. ISAIAS RIOS MD Narrative 10/22/2022 11:31 AM PARISH VISITOR PROCEDURES 10/22/2022 11:04 AM: 1. Ultrasound guided right lower quadrant renal transplant Chiba needle nephrostomy. 2. Antegrade nephrostogram through needle. CLINICAL HISTORY: Image guided antegrade nephrostogram with possible PNT placement if obstructed; Elevated serum creatinine; Hydronephrosis. COMPARISONS: Ultrasound 03/11/2014. REFERRING PROVIDER: KEI QUINTANA STEVEN ATTENDING RADIOLOGIST: Samir Rios MD [...] patient remained stable throughout the procedure. ATTENDING [id number] SEDATION TIME: 15 minutes. FLUOROSCOPY TIME: 0.3 [...] creatinine; Hydronephrosis. COMPARISONS: Ultrasound 03/11/2014. REFERRING PROVIDER: KEI QUINTANA STEVEN ATTENDING RADIOLOGIST: Samir Rios MD [...] patient remained stable throughout the procedure. ATTENDING [id number] SEDATION TIME: 15 minutes. FLUOROSCOPY TIME: 0.3 [...] performed for further evaluation. ISAIAS RIOS MD Kei Quintana MD IMG IR ORDERABLE S documented in this encounter Visit Diagnoses Diagnosis Elevated serum creatinine Other nonspecific findings on examination of blood Hydronephrosis documented in this encounter Care Teams Counter Molder Relationship Specialty Start Date End Date Momo Forbes MD PCP - General Family Practice 01/02/14 documented as of this encounter
--- OUTSIDE RECORDS SUMMARY | 2023-08-31 13:11 | XMS_ITS | Encounter Summary ---
Author Name Unknown Organization [place] Address [facility] [place] [address] Care Team Providers Care Curber Name Role Phone Momo Forbes MD Primary Care Provider Encounter Details Date Type Department Care Team (Late st Contact Info) Description 10/21/2022 Telephone [facility] Interventional Radiology [address] [place] [address] Mayo Suarez, RN Social History Tobacco Use Types Packs/Day [...] on filedocumented in this encounter Care Teams Curber Relationship Specialty Start Date End Date Momo Forbes MD PCP - General Family Practice 01/02/14 documented as of this encounter
--- OUTSIDE RECORDS SUMMARY | 2023-08-31 13:11 | XMS_ITS | Encounter Summary ---
Author Name Unknown Organization [place] Address [address] [place] [address]. [place] [address] Care Team Providers Care Design Teacher Name Role Phone Momo Forbes MD Primary Care Provider + [phone] Reason for Visit * Reason Onset Date Comments Transplant 10/19/2022 Encounter Details Date Type Department Care Team (Late st Contact Info) Description 10/19/2022 Telephone [facility] [address] [place] [phone] Grteta Peacock RN Transplant Social History Tobacco Use [...] encounter Miscellaneous Notes * Telephone Encounter - Laisha Porter - 10/19/2022 4:49 PM CST Pt returning call. Pleas call pt back O OPERATOR documented in this encounter Plan of Treatment Not on file documented as of this encounter Visit Diagnoses Not on filedocumented in this encounter Care Teams Design Teacher Relationship Specialty Start Date End Date Momo Forbes MD PCP - General Family Practice 01/02/14 documented as of this encounter
--- OUTSIDE RECORDS SUMMARY | 2023-08-31 13:11 | XMS_ITS | Encounter Summary ---
Author Name Unknown Organization [facility] Address [address] [place] [address]. [place] [address] Care Team Providers Care Assistant Plant Control Operator Name Role Phone Momo Forbes MD Primary Care Provider + [phone] Reason for Referral * Therapeutic Imaging/IR (Routine: Next available opening) - Closed Specialty Diagnoses / Procedures Referred By Contac t Referred To Contact Radiology. Diagnoses Elevated serum creatinine Procedures IR Renal Biopsy Right IR Referral outpatient referral Joseph Quintana MD [address] [place] [address] 353 [facility] [address] [place] [address] Referral ID Status Reason Start Date Expiration Date Visits Re quested Visits Authorized [id number] Closed 10/26/2022 10/26/2023 1 1 CTOR AGRICULTURAL SERVICES * Diagnostic Imaging NM (Routine) - Closed Specialty Diagnoses / Procedures Referred By Contac t Referred To Contact Radiology. Diagnoses Elevated serum creatinine Procedures NM Renogram with Lasix Joseph Quintana MD [address] [place] [address] [address] [facility] [address] [place] [address] Referral ID Status Reason Start Date Expiration Date Visits Re quested Visits Authorized [id number] Closed 10/26/2022 10/26/2023 1 1 CTOR AGRICULTURAL SERVICES Encounter Details Date Type Department Care Team (Late st Contact Info) Description 10/26/2022 Telephone [facility] [address] [place] [phone] Gretta Peacock RN Social History Tobacco Use Types Packs/Day [...] Coronavirus/COVID-19? No / Unsure 10/25/2022 12:16 PM DIRECTOR AGRICULTURAL SERVICES documented as of this encounter Miscellaneous Notes * Telephone Encounter - Gretta Peacock RN - 10/26/2022 9:10 AM CST Images from the original note were not included. Joseph Quintana MD Sveiven, Sara, BOGDAN Continued elevation in creatinine and recommend Lasix renogram and consideration of kidney transplant biopsy. Order placed. Scheduled for renogram 10/28 at 1300, check in at 1245 No food or drink restrictions Spoke with patient's who v/u of of renoram scheduled 10/28 at 1300. She is aware biospyis a possibility pending results of renogram Gretta Peacock RN Hospice Clinical Marketer [phone] [employer] AGRICULTURAL [employer] documented in this encounter Plan of Treatment Not on file documented as of this encounter Results * IR Renal Biopsy [...] setting of elevated creatinine. ?? PERFORMED BY: Debi Enrique PA-C CONSENT: Written informed consent was obtained and is documented in the patient record. MEDICATIONS: 1. 2 mg midazolam IV 2. 100 mcg fentanyl IV 3. 4 mL 1% lidocaine for local anesthesia NURSING: Patient continuously monitored by trained, independent observer. SEDATION TIME: 14 minutes [id number] DESCRIPTION: The patient's right low abdomen was [...] cores sent in preservative for pathological evaluation. DEBI ENRIQUE PA-C Narrative 11/02/2022 3:02 PM CDT DIAGNOSIS: Elevated serum creatinine PROCEDURE: IR RENAL BIOPSY RIGHT Procedure Note Debi Enrique PA-C - 11/02/2022 DIAGNOSIS: Elevated serum [...] in setting of elevated creatinine. PERFORMED BY: Debi Enrique PA-C CONSENT: Written informed consent was obtained and is documented in the patient record. MEDICATIONS: 1. 2 mg midazolam IV 2. 100 mcg fentanyl IV 3. 4 mL 1% lidocaine for local anesthesia NURSING: Patient continuously monitored by trained, independent observer. SEDATION TIME: 14 minutes [id number] DESCRIPTION: The patient's right low abdomen was [...] cores sent in preservative for pathological evaluation. DEBI ENRIQUE PA-C Joseph Quintana MD IMG IR ORDERABLE S * NM Renogram with Lasix (10/28/2022 2:59 PM DIRECTOR AGRICULTURAL SERVICES) Anatomical Region Laterality Modality Abdomen/Pelvis Nuclear Medicine Impressions 10/28/2022 3:04 PM DIRECTOR AGRICULTURAL SERVICES Impression: 1. Normal perfusion of the transplanted kidney. 2. 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 3. No evidence of obstruction or leakage of the transplanted kidney. KJ THOMPSON MD Narrative 10/28/2022 3:04 PM DIRECTOR AGRICULTURAL SERVICES Examination: ??NM transplant RENOGRAM WITH LASIX Date: [...] kidney. KJ THOMPSON MD Joseph Quintana MD IMG NM ORDERABLE S documented in this encounter Visit Diagnoses Diagnosis Elevated serum creatinine- Primary Other nonspecific findings on examination of blood Elevated serum creatinine Other nonspecific findings on examination of blood documented in this encounter Care Teams Assistant Plant Control Operator Relationship Specialty Start Date End Date Momo Forbes MD PCP - General Family Practice 01/02/14 documented as of this encounter
--- OUTSIDE RECORDS SUMMARY | 2023-08-31 13:11 | XMS_ITS | Encounter Summary ---
Author Name Unknown Organization [facility] Address [address] [place] [address] Care Team Providers Care Ammonia Print Operator Name Role Phone Momo Forbes MD Primary Care Provider + [phone] Encounter Details Date Type Department Care Team (Late st Contact Info) Description 10/19/2022 External Order Results [facility] [address] [place] [address] Outside, Provider Social History Tobacco Use Types [...] Coronavirus/COVID-19? No / Unsure 10/22/2022 7:28 AM EXTRUDER OPERATOR HORIZONTAL documented as of this encounter Plan of Treatment Not on file documented as of this encounter Procedures Procedure Name Priority Date/Time Associated Diagnosis Comments TACROLIMUS BY TANDEM MASS SPECTROMETRY Routine 10/19/2022 11:00 AM EXTRUDER OPERATOR HORIZONTAL documented in this encounter Results * Tacrolimus by Tandem Mass Spectrometry (10/19/2022 11:00 AM EXTRUDER OPERATOR HORIZONTAL) Tacrolimus(FK-5 06) (External) 8.2 5.0 - 15.0 ng/ml NON-INTERFACED (ONBASE SCANS) Blood 10/19/2022 11:0 0 AM EXTRUDER OPERATOR HORIZONTAL Narrative JESSICA PFT - 10/28/2022 9:41 AM EXTRUDER OPERATOR HORIZONTAL Verified by Andrade Barajas on 10/28/2022. Joseph Quintana MD LAB - BLOOD SUR[facility] Organization Address City/State/ZIP Co de Phone Number JESSICA PFT NON-INTERFACED (ONBASE SCANS) documented in this encounter Visit Diagnoses Not on filedocumented in this encounter Care Teams Ammonia Print Operator Relationship Specialty Start Date End Date Momo Forbes MD PCP - General Family Practice 01/02/14 documented as of this encounter
--- OUTSIDE RECORDS SUMMARY | 2023-08-31 13:11 | XMS_ITS | Encounter Summary ---
Author Name Unknown Organization [place] Address [address] [place] [address] Care Team Providers Care Blockman Name Role Phone Momo Forbes MD Primary Care Provider + [phone] Encounter Details Date Type Department Care Team (Late st Contact Info) Description 10/22/2022 Telephone [facility] [address] [place] [phone] Gretta Peacock, RN Social History Tobacco [...] Coronavirus/COVID-19? No / Unsure 10/22/2022 7:28 AM MANAGER CREDIT documented as of this encounter Miscellaneous Notes * Telephone Encounter - Gretta Peacock RN - 10/22/2022 3:55 PM CST ISSUE: nephrostomy completed today in IR for hydronephrosis. PLAN: call with instruction to have labs completed Wednesday 10/25 OUTCOME: Left detailed instructions for patient to have labs obtained preferably at lab on Tuesday in order for SOT team to review results Tuesday. Asked for CB to confirm message Gretta Peacock programmerPeer Specialist [phone] GER CREDIT documented in this encounter Plan of Treatment Not on file documented as of this encounter Results * (ABNORMAL) CBC with platelets (10/25/2022 3:18 PM MANAGER CREDIT) WBC Count 6.7 4.0 - 11.0 10e3/uL 10/25/2022 3:20 PM MANAGER CREDIT [facility] RBC Count 5.16 4.40 - 5.90 10e6/uL 10/25/2022 3:20 PM MANAGER CREDIT [facility] Hemoglobin 13.9 13.3 - 17.7 g/dL 10/25/2022 3:20 PM MANAGER CREDIT [facility] Hematocrit 41.7 40.0 - 53.0 % 10/25/2022 3:20 PM MANAGER CREDIT [facility] MCV 81 78 - 100 fL 10/25/2022 3:20 PM MANAGER CREDIT [facility] MCH 26.9 26.5 - 33.0 pg 10/25/2022 3:20 PM MANAGER CREDIT [facility] MCHC 33.3 31.5 - 36.5 g/dL 10/25/2022 3:20 PM MANAGER CREDIT [facility] RDW 15.4(H) 10.0 - 15.0 % 10/25/2022 3:20 PM MANAGER CREDIT [facility] Platelet Count 115(L) 150 - 450 10e3/uL 10/25/2022 3:20 PM MANAGER CREDIT [facility] Blood BLOOD SPECIMEN / Unknown Venipuncture / Unknown 10/25/2022 3:18 PM MANAGER CREDIT 10/25/2022 3:18 PM MANAGER CREDIT Joseph Quintana MD LAB - BLOOD [facility] [address] [facility] (no room number, 1st floor of clinic) [place] [address], [facility] [phone] * Tacrolimus by Tandem Mass Spectrometry (10/25/2022 2:46 PM MANAGER CREDIT) Pathologist [facility] Tacrolimus by Tandem Mass Spectrometry 8.7 5.0 - 15.0 ug/L 10/25/2022 10:35 PM MANAGER CREDIT [facility] Comment: Tacrolimus Reference Range [...] Last Dose Date 10/24/2022 10/25/2022 10:35 PM MANAGER CREDIT [facility] Tacrolimus Last Dose Time 9:00 PM 10/25/2022 10:35 PM MANAGER CREDIT [facility] Blood STRUCTURE OF RIGHT UPPER LIMB / Unknown Venipuncture / Unknown 10/25/2022 2:46 PM MANAGER CREDIT 10/25/2022 2:46 PM MANAGER CREDIT Narrative [facility] - 10/25/2022 10:35 PM MANAGER CREDIT This test was developed and its performance characteristics determined by the [facility] [...] [facility] [address] [facility] [address], [address] [address], [facility] [phone] * (ABNORMAL) Basic metabolic panel (10/25/2022 2:42 PM MANAGER CREDIT) Sodium 136 136 - 145 mmol/L 10/25/2022 6:50 PM MANAGER CREDIT [facility] Potassium 4.5 3.4 - 5.3 mmol/L 10/25/2022 6:50 PM MANAGER CREDIT [facility] Chloride 100 98 - 107 mmol/L 10/25/2022 6:50 PM MANAGER CREDIT [facility] Carbon Dioxide (CO2) 24 22 - 29 mmol/L 10/25/2022 6:50 PM MANAGER CREDIT [facility] Anion Gap 12 7 - 15 mmol/L 10/25/2022 6:50 PM MANAGER CREDIT [facility] Urea Nitrogen 45.2(H) 8.0 - 23.0 mg/dL 10/25/2022 6:50 PM MANAGER CREDIT [facility] Creatinine 2.53(H) 0.67 - 1.17 mg/dL 10/25/2022 6:50 PM MANAGER CREDIT [facility] Calcium 10.3(H) 8.8 - 10.2 mg/dL 10/25/2022 6:50 PM MANAGER CREDIT [facility] Glucose 342(H) 70 - 99 mg/dL 10/25/2022 6:50 PM MANAGER CREDIT [facility] GFR Estimate 26(L) >60 mL/min/1.7 3m2 10/25/2022 6:50 PM MANAGER CREDIT [facility] Comment:eGFR calculated us2020 CKD-EPI equation. Blood BLOOD SPECIMEN / Unknown Venipuncture / Unknown 10/25/2022 2:42 PM MANAGER CREDIT 10/25/2022 2:42 PM MANAGER CREDIT Joseph Quintana MD LAB - BLOOD ORDBea [facility] [address] [facility] [address] [facility] [address], [address] [address], [facility] [phone] documented in this encounter Visit Diagnoses Diagnosis Kidney transplanted- Primary Kidney replaced by transplant documented in this encounter Care Teams Blockman Relationship Specialty Start Date End Date Momo Forbes MD PCP - General Family Practice 01/02/14 documented as of this encounter
--- OUTSIDE RECORDS SUMMARY | 2023-08-31 13:11 | XMS_ITS | Encounter Summary ---
Author Name Unknown Organization [place] Address [address] [place] [address]. [place] [address] Care Team Providers Care Supervisor Ticket Sales Name Role Phone Momo Forbes MD Primary Care Provider + [phone] Reason for Referral * Consultation (Routine) - Pending Review Specialty Diagnoses / Procedures Referred By Contac t Referred To Contact Transplant / Solid Organ Transplant Diagnoses Kidney transplanted Satish Gómez MD [address] [place] [address] [address] [place] [phone] Referral ID Status Reason Start Date Expiration Date V isits Requested Visits Authorized [id number] Pending Review 10/15/2022 10/15/2023 1 1 Question Answer Order to be scheduled by Transplant Complex Assistant Financial Accountant? Yes Scheduling Visit Type Return Patient to be seen by MD Gaytan RKT in person with first available provider PICKER Encounter Details Date Type Department Care Team ([facility] Contact Info) Description 10/15/2022 Telephone [facility] [address] [place] [phone] Gretta Peacock RN Social History Tobacco Use [...] Miscellaneous Notes * Telephone Encounter - Gretta Peacock, RN - 10/20/2022 9:16 AM CST [facility] [phone] Renal US images requested to be pushed through in PACS. Gretta Peacock conference services coordinatorCollar Packer [phone] PICKER * Telephone Encounter - Latricia Alejandro - 10/15/2022 10:37 AM CST Mariposa MCFADDEN at [facility] calling regarding how often labs should be drawn, and would like for someone to reach out to patient to schedule appointment with , spong she will be faxing over lab results for labs drawn on 10/05 PICKER documented in this encounter Plan of Treatment Scheduled Referrals Name Type Priority Associated Diagnoses Orde r Schedule SOT Follow up Referral Routine Kidney transplanted Expected: 04/14/2023 (Approximate), Expires: 10/15/2023 documented as of this encounter Visit Diagnoses Diagnosis Kidney transplanted- Primary Kidney replaced by transplant documented in this encounter Care Teams Supervisor Ticket Sales Relationship Specialty Start Date End Date Momo Forbes MD PCP - General Family Practice 01/02/14 documented as of this encounter
--- OUTSIDE RECORDS SUMMARY | 2023-08-31 13:11 | XMS_ITS | Encounter Summary ---
Author Name Unknown Organization [facility] Address [address] [place] [address]. [place] [address] Care Team Providers Care Manufactured Buildings Repairer Name Role Phone Momo Forbes MD Primary Care Provider Encounter Details Date Type Department Care Team (Latest Contact Info) Description 10/25/2022 Travel Social History Tobacco Use Types Packs/Day [...] Coronavirus/COVID-19? No / Unsure 10/25/2022 12:16 PM CHILDCARE ATTENDANT documented as of this encounter Plan of Treatment Not on file documented as of this encounter Visit Diagnoses Not on filedocumented in this encounter Care Teams Manufactured Buildings Repairer Relationship Specialty Start Date End Date Momo Forbes MD PCP - General Family Practice 01/02/14 documented as of this encounter
--- OUTSIDE RECORDS SUMMARY | 2023-08-31 13:11 | XMS_ITS | Encounter Summary ---
Author Name Unknown Organization [facility] Address [address] [place] [address]. [place] [address] Care Team Providers Care Lead Pharmacy Technician Name Role Phone Momo Forbes MD Primary Care Provider + [phone] Reason for Visit * Reason Onset Date Comments Call Back 10/21/2022 left 10/21/19 from Tete S/O., wanted to discuss care plan on [place] please call #[phone] Encounter Details Date Type Department Care Team (Late st Contact Info) Description 10/21/2022 Telephone [facility] [address] [place] [phone] Gretta Peacock RN Call Back (VM left 10/20/2022 from Tete S/O., wanted to discuss care plan on [place] please call #[phone]) Social History Tobacco Use Types Packs/Day Years [...] Telephone Encounter - Gretta Peacock RN - 10/21/2022 3:18 PM CST ISSUE: patient and wifes questions answered by RNCC yesterday. Patient scheduled for IR procedure tomorrow 3/3 at 0800. Patient has not been notified. Will call IR and have them contact patient. Gretta Peacock environmental services directorNetwork Infrastructure Architect [phone] NG AND MOLDING MACHINE OPERATOR * Telephone Encounter - Mary Whitehead - 10/21/2022 9:07 AM CST VM left 10/20/2022 from Tete S/O., wanted to discuss care plan on [place] please call #[phone] NG AND MOLDING MACHINE OPERATOR documented in this encounter Plan of Treatment Not on file documented as of this encounter Visit Diagnoses Not on filedocumented in this encounter Care Teams Lead Pharmacy Technician Relationship Specialty Start Date End Date Momo Forbes MD PCP - General Family Practice 01/02/14 documented as of this encounter
--- OUTSIDE RECORDS SUMMARY | 2023-08-31 13:11 | XMS_ITS | Encounter Summary ---
Author Name Unknown Organization [facility] Address [address] [place] [address]. [place] [address] Care Team Providers Care Parliamentary Librarian Name Role Phone Momo Forbes MD Primary Care Provider Encounter Details Date Type Department Care Team (Latest Contact Info) Description 10/22/2022 Travel Social History Tobacco Use Types Packs/Day [...] Coronavirus/COVID-19? No / Unsure 10/22/2022 7:28 AM LIQUOR MERCHANT documented as of this encounter Plan of Treatment Not on file documented as of this encounter Visit Diagnoses Not on filedocumented in this encounter Care Teams Parliamentary Librarian Relationship Specialty Start Date End Date Momo Forbes MD PCP - General Family Practice 01/02/14 documented as of this encounter
--- OUTSIDE RECORDS SUMMARY | 2023-08-31 13:11 | XMS_ITS | Encounter Summary ---
Author Name Unknown Organization [place] Address [facility] [place] [facility] [place] [address] Care Team Providers Care Systematic Theology Professor Name Role Phone Momo Forbes MD Primary Care Provider Encounter Details Date Type Department Care Team (Late st Contact Info) Description 10/19/2022 Telephone [facility] Transplant Clinic [address] [place] [phone] Gretta Peacock, BOGDAN Social History Tobacco [...] on filedocumented in this encounter Care Teams Systematic Theology Professor Relationship Specialty Start Date End Date Momo Forbes MD PCP - General Family Practice 01/02/14 documented as of this encounter
--- OUTSIDE RECORDS SUMMARY | 2023-08-31 13:12 | XMS_ITS | Encounter Summary ---
Author Name Unknown Organization [facility] Address [address] [place] [address] Care Team Providers Care Metal Control Worker Name Role Phone Momo Forbes MD Primary Care Provider + [phone] Encounter Details Date Type Department Care Team (Late st Contact Info) Description 09/13/2022 Telephone [facility] Transplant Clinic [address] [place] [address] Gretta Peacock, RN Social History [...] Telephone Encounter - Gretta Peacock RN - 09/13/2022 2:34 PM CST ISSUE: Patient discharged from in patient rehab last week. Renal transplant US to be scheduled to follow up on abnormal CT scan obtained while in ED at [facility] July 2022. Patient to also repeat transplant labs OUTCOME: per , patient had labs drawn yesterday morning 09/14/2021. Per patient will obtainUS locally. Order faxed. Gretta Peacock RN Debt Recovery Officer [phone] OR RELATIONSHIP MANAGER documented in this encounter Plan of Treatment Not on file documented as of this encounter Visit Diagnoses Not on filedocumented in this encounter Care Teams Metal Control Worker Relationship Specialty Start Date End Date Momo Forbes MD PCP - General Family Practice 01/02/14 documented as of this encounter
--- OUTSIDE RECORDS SUMMARY | 2023-08-31 13:12 | XMS_ITS | Encounter Summary ---
Author Name Unknown Organization [place] Address [address] [place] [address]. [place] [address] Care Team Providers Care Mail Sorter And Delivery Name Role Phone Momo Forbes MD Primary Care Provider + [phone] Reason for Visit * Reason Onset Date Comments Refill Request 10/15/2022 Encounter Details Date Type Department Care Team (Late st Contact Info) Description 10/15/2022 Refill [facility] [place] [address] [place] [address] Joseph Quintana MD [address] [place] [address] [address] [facility] [address] [place], [place] [address] Refill Request Social History Tobacco Use Types [...] encounter Visit Diagnoses Diagnosis -donor kidney transplant recipient Kidney replaced by transplant Kidney transplanted Kidney replaced by transplant documented in this encounter Care Teams Mail Sorter And Delivery Relationship Specialty Start Date End Date Momo Forbes MD PCP - General Family Practice 01/02/14 documented as of this encounter
--- OUTSIDE RECORDS SUMMARY | 2023-08-31 13:12 | XMS_ITS | Encounter Summary ---
Author Name Unknown Organization [facility] Address [address] [facility] [place] [address] Care Team Providers Care Catalyst Unit Operator Name Role Phone Momo Forbes MD Primary Care Provider Joseph Quintana MD Unavailable [phone] Reason for Visit * Reason Onset Date Comments Transplant 08/25/2022 Encounter Details Date Type Department Care Team (Late st Contact Info) Description 08/25/2022 Telephone [facility] [address] [place] [address] Gretta Peacock, director compensation Social History Tobacco Use Types Packs/Day Years [...] Telephone Encounter - Gretta Peacock RN - 08/30/2022 12:[address] scan records request sent. Patient aware, Will send SOT provider an update on Abnormal CT results- results available in Care everywhere Gretta Peacock RN Top Collar Maker [phone] Orders sent to obtain labs tomorrow morning 08/31/2022 including a 12 hour tac trough level. Education provided on how to obtain a trough level, Instructed to hold tacrol Bactrim discontinued 08/25 RNCC asked for latest MD note to be faxed to SOT, fax number provided. Medical record request placed to received CT scan from [facility] from 2021 Will review with Transplant team once received Gretta Paecock RN Top Collar Maker [phone] ICAL SUPPORT MANAGER * Telephone Encounter - Tommie Alcazar - 08/25/2022 4:49 PM CST Patient Call: General Route to LASER BEAM MACHINE OPERATOR Reason for call: called in regards to touch base and follow up on a few things. Call back number [phone]. Call back needed? Yes Return Call Needed Same as documented in contacts section When to return call?: Same day: Route High Priority ICAL SUPPORT MANAGER documented in this encounter Plan of Treatment Not on file documented as of this encounter Visit Diagnoses Not on filedocumented in this encounter Care Teams Catalyst Unit Operator Relationship Specialty Start Date End Date Momo Forbes MD PCP - General Family Practice 01/02/14 Joseph Quintana MD [address] [place] [address] Assigned Nephrology Provider 03/29/21 09/10/22 documented as of this encounter
--- OUTSIDE RECORDS SUMMARY | 2023-08-31 13:12 | XMS_ITS | Encounter Summary ---
Author Name Unknown [facility] Address [address] [place] [address] Care Team Providers Care Buckshot Swage Operator Name Role Phone Momo Forbes MD Primary Care Provider Joseph Quintana MD Unavailable [phone] Encounter Details Date Type Department Care Team (Late st Contact Info) Description 04/29/2022 External Order Results [facility] [address] [place] [address] Outside, Provider Social History Tobacco Use Types [...] Comments CBC WITH PLATELETS & DIFFERENTIAL Routine 04/29/2022 11:40 AM CDT TACROLIMUS BY TANDEM MASS SPECTROMETRY Routine 04/29/2022 11:40 AM CDT PROTEIN RANDOM URINE Routine 04/29/2022 11:40 AM CDT BASIC METABOLIC PANEL Routine 04/29/2022 11:40 AM CDT documented in this encounter Results * Tacrolimus by Tandem Mass Spectrometry (04/29/2022 11:40 AM CDT) Tacrolimus(FK-5 06) (External) 5.5 5.0 - 15.0 ng/mL NON-INTERFACED (ONBASE SCANS) Blood 04/29/2022 11:4 0 AM CDT Yohana ROSARIOE PFT - 05/03/2022 12:33 PM CDT Verified by Praful Huff on 05/03/2022. Provider Outside LAB - BLOOD ORDERABL ES Performing Organization Address City/[facility]/ZIP Co de Phone Number MARLENEE PFT NON-INTERFACED (ONBASE SCANS) * (ABNORMAL) Protein random urine (04/29/2022 11:40 AM CDT) Creatinine Urine mg/dL (External) 79.5 mg/dL NON-INTERFACE D (ONBASE SCANS) Protein Random Urine (External) 199 mg/dL NON-INTERFACE D (ONBASE SCANS) Protein Total Ur per Cr (External) 2.50(H) 0 - 0.19 NON-INTERFACE D (ONBASE SCANS) Urine 04/29/2022 11:4 0 AM CDT Yohana ROSARIOE PFT - 04/30/2022 12:29 PM CDT Verified by Andrade Barajas on 04/30/2022. Provider Outside LAB - URINE ORDERABL ES ZACHERYEZE PFT NON-INTERFACED (ONBASE SCANS) * (ABNORMAL) CBC with Platelets & Differential (04/29/2022 11:40 AM CDT) WBC Count (External) 4.89 4.50 - 11.00 K/uL NON-INTERFACE D (ONBASE SCANS) RBC Count (External) 4.48 4.30 - 5.90 m/uL NON-INTERFACE D (ONBASE SCANS) Hemoglobin (External) 12.0(L) 13.5 - 17.5 gm/dL NON-INTERFACE D (ONBASE SCANS) Hematocrit (External) 38.7 37.0 - 53.0 % NON-INTERFACE D (ONBASE SCANS) MCV (External) 86 80 - 100 fL NON-INTERFACE D (ONBASE SCANS) MCH (External) 27 26 - 34 pg NON- INTERFACE D (ONBASE SCANS) MCHC (External) 31(L) 32 - 36 gm/dL NON-INTERFACE D (ONBASE SCANS) Platelet Count (External) 109(L) 140 - 440 K/uL NON-INTERFACE D (ONBASE SCANS) RDW (External) 15.7(H) 11.5 - 15.5 % NON-INTERFACE D (ONBASE SCANS) % Neutrophils (External) 64.7 42.0 - 72.0 % NON-INTERFACE D (ONBASE SCANS) % Lymphocytes (External) 20.0 20 - 44 % NON-INTERFACE D (ONBASE SCANS) % Monocytes (External) 8.2 0.0 - 11.0 % NON-INTERFACE D (ONBASE SCANS) % Eosinophils (External) 6.5 0.0 - 7.0 % NON-INTERFACE D (ONBASE SCANS) % Basophils (External) 0.4 0.0 - 3.0 % NON-INTERFACE D (ONBASE SCANS) Absolute Neutrophils (External) 3.16 1.7 - 7.0 K/uL NON-INTERFACE D (ONBASE SCANS) Absolute Lymphocytes (External) 0.98 0.90 - 2.90 K/uL NON-INTERFACE D (ONBASE SCANS) Absolute Monocytes (External) 0.40 0.00 - 0.90 K/UL NON-INTERFACE D (ONBASE SCANS) Absolute Eosinophils (External) 0.32 0.00 - 0.50 K/uL NON-INTERFACE D (ONBASE SCANS) Absolute Basophils (External) 0.02 0.00 - 0.30 K/uL NON-INTERFACE D (ONBASE SCANS) Absolute Immature Granulocytes (External) 0.01 0.00 - 0.30 K/uL NON-INTERFACE D (ONBASE SCANS) Blood 04/29/2022 11:4 0 AM CDT Narrative JESSICA PFT - 04/30/2022 12:29 PM CDT Verified by Andrade Barajas on 04/30/2022. Provider Outside LAB - BLOOD ORDERABL ES Performing Organization Address City/State/[facility] Co de Phone Number JESSICA PFT NON-INTERFACED (ONBASE SCANS) * (ABNORMAL) Basic metabolic panel (04/29/2022 11:40 AM CDT) Sodium (External) 144 135 - 149 mmol/L NON-INTERFACED (ONBASE SCANS) Potassium (External) 5.0 3.6 - 5.1 mmol/L NON-INTERFACED (ONBASE SCANS) Chloride (External) 111 96 - 114 mmol/L NON-INTERFACED (ONBASE SCANS) CO2 (External) 21 20 - 32 mmol/L NON-INTERFACED (ONBASE SCANS) Urea Nitrogen (External) 34(H) 7 - 30 mg/dL NON-INTERFACED (ONBASE SCANS) Creatinine (External) 2.4(H) 0.5 - 1.5 mg/dL NON-INTERFACED (ONBASE SCANS) GFR Estimated (External) 28 ml/min NON-INTERFACED (ONBASE SCANS) Calcium (External) 9.5 8.4 - 10.6 mg/dL NON-INTERFACED (ONBASE SCANS) Glucose (External) 103 60 - 115 mg/dL NON-INTERFACED (ONBASE SCANS) Blood 04/29/2022 11:4 0 AM CDT Narrative BREEZE PFT - 04/30/2022 12:29 PM CDT Verified by Andrade Barajas on 04/30/2022. Provider Outside LAB - BLOOD ORDERABL ES Performing Organization Address City/[facility] Co de Phone Number JESSICA PFT NON-INTERFACED (ONBASE SCANS) documented in this encounter Visit Diagnoses Not on filedocumented in this encounter Care Teams Buckshot Swage Operator Relationship Specialty Start Date End Date Momo Forbes MD PCP - General Family Practice 01/02/14 Joseph Quintana MD [address] [facility] [address] [facility] [address] [place] [address] Assigned Nephrology Provider 03/29/21 09/10/22 documented as of this encounter
--- OUTSIDE RECORDS SUMMARY | 2023-08-31 13:12 | XMS_ITS | Encounter Summary ---
Author Name Unknown Organization [facility] Address [address] [place] [address]. [place] [address] Care Team Providers Care Pediatrics Teacher Name Role Phone Momo Forbes MD Primary Care Provider [phone] Reason for Visit * Reason Comments Medication Refill Encounter Details Date Type Department Care Team (Late st Contact Info) Description 10/14/2022 [facility] [place] [address] [place] [address] Joseph Quintana MD [address] [place] [address] 353 [facility] [address] [place], [place] [id number] Medication Refill Social History Tobacco Use Types Packs/Day Years [...] transplant documented in this encounter Care Teams Pediatrics Teacher Relationship Specialty Start Date End Date Momo Forbes MD PCP - General Family Practice 01/02/14 documented as of this encounter
--- OUTSIDE RECORDS SUMMARY | 2023-08-31 13:12 | XMS_ITS | Encounter Summary ---
Author Name Unknown [facility] Address [address] [place] [address] Care Team Providers Care Derrick Boat Lever Operator Name Role Phone Momo Forbes MD Primary Care Provider Joseph Quintana MD Unavailable [phone] Encounter Details Date Type Department Care Team (Late st Contact Info) Description 12/09/2021 External Order Results [facility] [address] [place] [address] Outside, Provider Social History Tobacco Use Types [...] Comments TACROLIMUS BY TANDEM MASS SPECTROMETRY Routine 12/09/2021 11:50 AM CDT PROTEIN RANDOM URINE Routine 12/09/2021 11:50 AM CDT BASIC METABOLIC PANEL Routine 12/09/2021 11:50 AM CDT CBC WITH PLATELETS Routine 12/09/2021 11 :50 AM CDT documented in this encounter Results * (ABNORMAL) CBC with platelets (12/09/2021 11:50 AM CDT) WBC Count (External) 7.68 5.00 - 10.00 K/UL NON-INTERFACE D (ONBASE SCANS) RBC Count (External) 4.41 4.32 - 5.72 M/UL NON-INTERFACE D (ONBASE SCANS) Hemoglobin (External) 12.3(L) 13.5 - 17.5 GM/DL NON-INTERFACE D (ONBASE SCANS) Hematocrit (External) 38.7(L) 38.8 - 50.0 % NON-INTERFACE D (ONBASE SCANS) MCV (External) 88 81 - 95 FL NON- INTERFACE D (ONBASE SCANS) MCH (External) 28 27 - 34 PG NON- INTERFACE D (ONBASE SCANS) MCHC (External) 32 32 - 36 GM/DL NON-INTERFACE D (ONBASE SCANS) Platelet Count (External) 151 150 - 450 K/UL NON-INTERFACE D (ONBASE SCANS) Blood 12/09/2021 11:5 0 AM CDT Narrative BREEZE PFT - 12/15/2021 3:20 PM CDT Verified by Ruperto Pepper on 12/15/2021. Provider Outside LAB - BLOOD ORDERABL ES BREEZE PFT NON-INTERFACED (ONBASE SCANS) * Tacrolimus by Tandem Mass Spectrometry (12/09/2021 11:50 AM CDT) Tacrolimus(FK-5 06) (External) 4.5 See scan ng/mL NON-INTERFACED (ONBASE SCANS) Blood 12/09/2021 11:5 0 AM CDT Narrative BREEZE PFT - 12/11/2021 4:45 PM CDT Verified by Cassie Florian on 12/11/2021. Orlando Richey MD LAB - BLOOD ORDERABL ES BREEZE PFT NON-INTERFACED (ONBASE SCANS) * (ABNORMAL) Protein random urine (12/09/2021 11:50 AM CDT) Protein Random Urine (External) 138 mg/dL NON-INTERFACE D (ONBASE SCANS) Creatinine Urine mg/dL (External) 82 mg/dL NON-INTERFACE D (ONBASE SCANS) Protein Total Ur per Cr (External) 1.68(H) 0 - 0.19 NON-INTERFACE D (ONBASE SCANS) Urine 12/09/2021 11:5 0 AM CDT Narrative BREEZE PFT - 12/10/2021 9:52 AM CDT Verified by Praful Huff on 12/10/2021. Orlando Richey MD LAB - URINE ORDERABL ES [facility] NON-INTERFACED (ONBASE SCANS) * (ABNORMAL) Basic metabolic panel (12/09/2021 11:50 AM CDT) Glucose (External) 133(H) 60 - 115 mg/dL NON-INTERFACED (ONBASE SCANS) Urea Nitrogen (External) 24 7 - 30 mg/dL NON-INTERFACED (ONBASE SCANS) Creatinine (External) 1.9(H) 0.5 - 1.5 mg/dL NON-INTERFACED (ONBASE SCANS) Sodium (External) 139 135 - 149 mmol/L NON-INTERFACED (ONBASE SCANS) Potassium (External) 4.3 3.5 - 5.1 mmol/L NON-INTERFACED (ONBASE SCANS) Chloride (External) 107 96 - 114 mmol/L NON-INTERFACED (ONBASE SCANS) CO2 (External) 25 20 - 32 mmol/L NON-INTERFACED (ONBASE SCANS) Calcium (External) 9.4 8.4 - 10.6 mg/dL NON-INTERFACED (ONBASE SCANS) Blood 12/09/2021 11:5 0 AM CDT Narrative BREEZE PFT - 12/10/2021 9:23 AM CDT Verified by Cassie Florian on 12/10/2021. Orlando Richey MD LAB - BLOOD ORDERABL ES BREEZE PFT NON-INTERFACED (ONBASE SCANS) documented in this encounter Visit Diagnoses Not on filedocumented in this encounter Care Teams Derrick Boat Lever Operator Relationship Specialty Start Date End Date Momo Forbes MD PCP - General Family Practice 01/02/14 Joseph Quintana MD [address] [place] [address] Assigned Nephrology Provider 03/29/21 09/10/22 documented as of this encounter
--- OUTSIDE RECORDS SUMMARY | 2023-08-31 13:12 | XMS_ITS | Encounter Summary ---
Author Name Unknown [facility] Address [address] [place] [address] Care Team Providers Care Erector Operator Name Role Phone Momo Forbes MD Primary Care Provider Joseph Quintana MD Unavailable [phone] Encounter Details Date Type Department Care Team (Late st Contact Info) Description 09/07/2022 External Order Results [facility] [address] [place] [address] Outside, Provider Social History Tobacco Use Types [...] Comments CBC WITH PLATELETS & DIFFERENTIAL Routine 09/07/2022 10:58 AM FEATURES REPORTER TACROLIMUS BY TANDEM MASS SPECTROMETRY Routine 09/07/2022 10:58 AM FEATURES REPORTER MAGNESIUM Routine 09/07/2022 10:58 AM FEATURES REPORTER documented in this encounter Results * (ABNORMAL) CBC with Platelets & Differential (09/07/2022 10:58 AM FEATURES REPORTER) [facility] Hemoglobin (External) 11.1(L) 13.2 - 16.6 g/dL [facility] Hematocrit (External) 36.2(L) 38.3 - 48.6 % [facility] RBC Count (External) 4.32(L) 4.35 - 5.65 x10(12)/L [facility] MCV (External) 83.8 78.2 - 97.9 fL [facility] Platelet Count (External) 110(L) 135 - 317 x10(9)/L [facility] WBC Count (External) 4.3 3.4 - 9.6 x10(9)/L [facility] Absolute Neutrophils (External) 2.50 1.56 - 6.45 x10(9)/L [facility] Absolute Lymphocytes (External) 1.03 0.95 - 3.07 x10(9)/L [facility] Absolute Monocytes (External) 0.47 0.26 - 0.81 x10(9)/L [facility] Absolute Eosinophils (External) 0.32 0.03 - 0.48 x10(9)/L [facility] Absolute Basophils (External) <0.04 0.01 - 0.08 x10(9)/L [facility] Blood BLOOD SPECIMEN / Unknown 09/07/2022 10:58 AM FEATURES REPORTER Narrative ZACHERYTYLER MORELIA - 09/10/2022 1:04 PM FEATURES REPORTER Verified by Yudi Ruano on 09/10/2022. Provider Outside LAB - [facility]LOOD [facility]ABL ES [facility] [address] [place] [address] * Tacrolimus by Tandem Mass Spectrometry (09/07/2022 10:58 AM FEATURES REPORTER) Pathologist [facility] Tacrolimus(FK-5 06) (External) 5.2 5.0 - 15.0 ng/ml NON-INTERFACED (ONBASE SCANS) Blood 09/07/2022 10:5 8 AM FEATURES REPORTER Narrative BREEZE PFT - 09/10/2022 12:55 PM FEATURES REPORTER Verified by Andrade Barajas on 09/10/2022. Provider Outside LAB - BLOOD ORDERABL ES BREEZE PFT NON-INTERFACED (ONBASE SCANS) * (ABNORMAL) Magnesium (09/07/2022 10:58 AM FEATURES REPORTER) Magnesium (External) 1.5(L) 1.7 - 2.3 mg/dl NON-INTERFACED (ONBASE SCANS) Blood BLOOD SPECIMEN / Unknown 09/07/2022 10:58 AM FEATURES REPORTER Narrative BREEZE PFT - 09/10/2022 12:55 PM FEATURES REPORTER Verified by Andrade Barajas on 09/10/2022. Provider Outside LAB - BLOOD ORDERABL ES BREEZE PFT NON-INTERFACED (ONBASE SCANS) documented in this encounter Visit Diagnoses Not on filedocumented in this encounter Care Teams Erector Operator Relationship Specialty Start Date End Date Momo Forbes MD PCP - General Family Practice 01/02/14 Joseph Quintana MD [address] [place] [address] Assigned Nephrology Provider 03/29/21 09/10/22 documented as of this encounter
--- OUTSIDE RECORDS SUMMARY | 2023-08-31 13:12 | XMS_ITS | Encounter Summary ---
Author Name Unknown Organization [facility] Address [address] [place] [address]. [place] [address] Care Team Providers Care Hangar Attendant Name Role Phone Momo Forbes MD Primary Care Provider [phone] Joseph Quintana MD Unavailable [phone] Reason for Visit * Reason Onset Date Comments Left Message To Call 05/06/2022 Left VM at 11:55PM., Wanted to discuss lab results Encounter Details Date Type Department Care Team (Late st Contact Info) Description 05/06/2022 Telephone [facility] [address] [place] [address] Gretta Peacock, BOGDAN Left Message To Call (Left VM 05/06/2022 at 11:55PM., Wanted to discuss lab results) Social History Tobacco Use Types Packs/Day Years [...] encounter Miscellaneous Notes * Telephone Encounter - Janet Rojas RN - 05/06/2022 4:05 PM CDT See other encounter * Telephone Encounter - Mary Whitehead - 05/06/2022 12:28 PM CDT Left VM 05/06/2022 at 11:55PM., Wanted to discuss lab results documented in this encounter Plan of Treatment Not on file documented as of this encounter Visit Diagnoses Not on filedocumented in this encounter Care Teams Hangar Attendant Relationship Specialty Start Date End Date Momo Forbes MD PCP - General Family Practice 01/02/14 Joseph Quintana MD [address] [place] [address] Assigned Nephrology Provider 03/29/21 09/10/22 documented as of this encounter
--- OUTSIDE RECORDS SUMMARY | 2023-08-31 13:12 | XMS_ITS | Encounter Summary ---
Author Name Unknown Organization [facility] Address [address] [place] [address] Care Team Providers Care Butcher Name Role Phone Momo Forbes MD Primary Care Provider [phone] Encounter Details Date Type Department Care Team (Late st Contact Info) Description 09/29/2022 Telephone [facility] [address] [place] [address] Gretta Peacock RN Social History Tobacco [...] Telephone Encounter - Alana Calderon LPN - 09/29/2022 12:24 PM CST Order sent MGR * Telephone Encounter - Tommie Alcazar - 09/29/2022 9:25 AM CST Patient Call: General Route to [facility] Reason for call: called in regards of need new lab orders faxed over for for patient. The provider name and signuture was not on the orders. Call back number is [phone] Fax number [phone] Call back needed? Yes Return Call Needed Same as documented in contacts section When to return call?: Same day: Route High Priority MGR documented in this encounter Plan of Treatment Not on file documented as of this encounter Visit Diagnoses Not on filedocumented in this encounter Care Teams Butcher Relationship Specialty Start Date End Date Momo Forbes MD PCP - General Family Practice 01/02/14 documented as of this encounter
--- OUTSIDE RECORDS SUMMARY | 2023-08-31 13:12 | XMS_ITS | Encounter Summary ---
Author Name Unknown Organization [facility] Address [address] [place] [address] Care Team Providers Care Nurses Superintendent Name Role Phone Momo Forbes MD Primary Care Provider + [phone] Encounter Details Date Type Department Care Team (Late st Contact Info) Description 10/07/2022 Telephone [facility] [address] [place] [address] Gretta Peacock, RN Social History [...] Telephone Encounter - Gretta Peacock RN - 10/08/2022 2:17 PM CST ISSUE: patient having cystoscopy done locally 10/20 OUTCOME: patient to update RNCC after cystoscopy is completed to review finding. Renal US obtained locally this past week. Will review results on received Gretta Peacock food service utility workerManager State [phone] COLLECTION SYSTEM OPERATOR * Telephone Encounter - Latricia Alejandro - 10/07/2022 3:11 PM CST Diego is calling in regards to his upcoming Urology Procedure on 10/20/[address]. Patient wondering if he should have it done at the wanting to know RNCC thoughts COLLECTION SYSTEM OPERATOR documented in this encounter Plan of Treatment Not on file documented as of this encounter Visit Diagnoses Not on filedocumented in this encounter Care Teams Nurses Superintendent Relationship Specialty Start Date End Date Momo Forbes MD PCP - General Family Practice 01/02/14 documented as of this encounter
--- OUTSIDE RECORDS SUMMARY | 2023-08-31 13:12 | XMS_ITS | Encounter Summary ---
Author Name Unknown [facility] Address [address] [place] [address] Care Team Providers Care Paper Coater Name Role Phone Momo Forbes MD Primary Care Provider [phone] Joseph Quintana MD Unavailable [phone] Encounter Details Date Type Department Care Team (Late st Contact Info) Description 01/19/2022 External Order Results [facility] [address] [place] [address] Outside, Provider Social History Tobacco Use Types [...] Procedure Name Priority Date/Time Associated Diagnosis Comments EXTERNAL CULTURE RESULTS Routine 01/19/2022 12:11 PM CDT PROTEIN RANDOM URINE Routine 01/19/2022 11:55 AM CDT BASIC METABOLIC PANEL Routine 01/19/2022 11:55 AM CDT ROUTINE UA WITH MICROSCOPIC Routine 01/19/2022 11:16 AM CDT documented in this encounter Results * External Culture Results (01/19/2022 12:11 PM CDT) Scan Culture Results (External) See Scanned Report NON-INTERFACE D (ONBASE SCANS) 01/19/2022 12:1 1 PM CDT Yohana LOPEZ PFT - 01/25/2022 2:48 PM CDT Verified by Priscilla Mcdaniel on 01/25/2022. Provider Outside LABORATORY Performing Organization Address City/[facility]/ZIP Co de Phone Number ZACHERYEZE PFT NON-INTERFACED (ONBASE SCANS) * (ABNORMAL) Protein random urine (01/19/2022 11:55 AM CDT) Protein Random Urine (External) 176 mg/dL NON-INTERFACE D (ONBASE SCANS) Creatinine Urine mg/dL (External) 66 mg/dL NON-INTERFACE D (ONBASE SCANS) Protein Total Ur per Cr (External) 2.66(H) 0 - 0.19 Ratio NON-INTERFACE D (ONBASE SCANS) Urine 01/19/2022 11:5 5 AM CDT Yohana LOPEZ PFT - 01/21/2022 8:22 AM CDT Verified by Priscilla Mcdaniel on 01/21/2022. Provider Outside LAB - URINE ORDERABL ES Performing Organization Address [facility]/ZIP Co de Phone Number ZACHERYEZE PFT NON-INTERFACED (ONBASE SCANS) * (ABNORMAL) Basic metabolic panel (01/19/2022 11:55 AM CDT) Glucose (External) 236(H) 60 - 115 mg/dL NON-INTERFACED (ONBASE SCANS) Urea Nitrogen (External) 24 7 - 30 mg/dL NON-INTERFACED (ONBASE SCANS) Creatinine (External) 1.9(H) 0.5 - 1.5 mg/dL NON-INTERFACED (ONBASE SCANS) Sodium (External) 140 135 - 149 mmol/L NON-INTERFACED (ONBASE SCANS) Potassium (External) 4.5 3.6 - 5.1 mmol/L NON-INTERFACED (ONBASE SCANS) Chloride (External) 105 96 - 114 mmol/L NON-INTERFACED (ONBASE SCANS) CO2 (External) 22 20 - 32 mmol/L NON-INTERFACED (ONBASE SCANS) Calcium (External) 9.5 8.4 - 10.6 mg/dL NON-INTERFACED (ONBASE SCANS) Blood 01/19/2022 11:5 5 AM CDT Narrative JESSICA PFT - 01/21/2022 8:19 AM CDT Verified by Yudi Ruano on 01/21/2022. Provider Outside LAB - BLOOD ORDERABL ES JESSICA PFT NON-INTERFACED (ONBASE SCANS) * (ABNORMAL) UA with Microscopic (01/19/2022 11:16 AM CDT) Color Urine (External) YEL YELLOW NON-INTERFAC ED (ONBASE SCANS) Appearance Urine (External) CLEAR CLEAR NON-INTERFAC ED (ONBASE SCANS) Glucose Urine (External) 2+ NEGATIVE NON-INTERFAC ED (ONBASE SCANS) Bilirubin Urine (External) NEG NEGATIVE NON-INTERFAC ED (ONBASE SCANS) Ketones Urine (External) NEG NEGATIVE NON-INTERFAC ED (ONBASE SCANS) Specific Encinal Urine (External) 1.010 1.005 - 1.030 NON-INTERFAC ED (ONBASE SCANS) Blood Urine (External) 2+(A) NEGATIVE NON-INTERFAC ED (ONBASE SCANS) pH Urine (External) 5.5 5.0 - 8.0 NON-INTERFAC ED (ONBASE SCANS) Protein Albumin Ur (External) 2+(A) NEGATIVE NON-INTERFAC ED (ONBASE SCANS) Urobilinogen (External) 0.2 NON-INTERFAC ED (ONBASE SCANS) Nitrites Urine (External) NEG NEGATIVE NON-INTERFAC ED (ONBASE SCANS) Leukocyte Esterase Urine (External) TRACE(A) NEGATIVE NON-INTERFAC ED (ONBASE SCANS) WBC Urine (External) 0 0 - 2 NON-INTERFAC ED (ONBASE SCANS) RBC Urine (External) 5-10(A) 0 - 2 NON-INTERFAC ED (ONBASE SCANS) Casts Urine (External) 0 0 NON-INTERFAC ED (ONBASE SCANS) Crystal Urine (External) 0 0 NON-INTERFAC ED (ONBASE SCANS) Squamous Epithelial Urine (External) FEW FEW NON-INTERFAC ED (ONBASE SCANS) Bacteria Urine (External) 0 0 NON-INTERFAC ED (ONBASE SCANS) Urine 01/19/2022 11:1 6 AM CDT Narrative JESSICA PFT - 01/21/2022 8:14 AM CDT Verified by Ruperto Pepper on 01/21/2022. Provider Outside LAB - URINE ORDERABL ES JESSICA PFT NON-INTERFACED (ONBASE SCANS) documented in this encounter Visit Diagnoses Not on filedocumented in this encounter Care Teams Paper Coater Relationship Specialty Start Date End Date Momo Forbes MD PCP - General Family Practice 01/02/14 Joseph Quintana MD [address] [facility] [address] [facility] [address] [place] [address] Assigned Nephrology Provider 03/29/21 09/10/22 documented as of this encounter
--- OUTSIDE RECORDS SUMMARY | 2023-08-31 13:12 | XMS_ITS | Encounter Summary ---
Author Name Unknown Organization [facility] Address [address] [place] [address]. [place] [address] Care Team Providers Care Senior Firmware Engineer Name Role Phone Momo Forbes MD Primary Care Provider [phone] Joseph Quintana MD Unavailable [phone] Encounter Details Date Type Department Care Team (Late st Contact Info) Description 09/02/2022 Telephone [facility] [address] [place] [address] Gretta Peacock, RN Social History [...] Telephone Encounter - Gretta Peacock RN - 09/09/2022 3:26 PM CST ISSUE: Patient was discharged from TCU today. Urology apt scheduled at [facility] urology later this month. Will reach out to the patient to renal tx US and ensure he repeats transplant labs Per Ada TCU RN, labs were obtained this week prior to discharge. K+ and Mag supplements were increase due to low values. Have not yet received results, Will review once received. Gretta Sveiven standard machine stitcherProduction Checker [phone] SHAPER HAND * Telephone Encounter - Tommie Alcazar - 09/02/2022 3:48 PM CST Patient Call: General Route to SAMPLE DYE MIXER Reason for call: Ada from [place] called in regards of follow up and touch base on orders. Call back number is [phone]. Call back needed? Yes Return Call Needed Same as documented in contacts section When to return call?: Same day: Route High Priority SHAPER HAND documented in this encounter Plan of Treatment Not on file documented as of this encounter Visit Diagnoses Not on filedocumented in this encounter Care Teams Senior Firmware Engineer Relationship Specialty Start Date End Date Momo Forbes MD PCP - General Family Practice 01/02/14 Joseph Quintana MD 717 [facility] 353 [facility] [address] [place] [address] Assigned Nephrology Provider 03/29/21 09/10/22 documented as of this encounter
--- OUTSIDE RECORDS SUMMARY | 2023-08-31 13:12 | XMS_ITS | Encounter Summary ---
Author Name Unknown [facility] Address [address] [place] [address] Care Team Providers Care Licensing Coordinator Name Role Phone Momo Forbes MD Primary Care Provider Joseph Quintana MD Unavailable [phone] Encounter Details Date Type Department Care Team (Late st Contact Info) Description 08/31/2022 External Order Results [facility] [address] [place] [address] Outside, Provider Social History Tobacco Use Types [...] Procedure Name Priority Date/Time Associated Diagnosis Comments BASIC METABOLIC PANEL Routine 09/07/2022 10:58 AM RESEARCH SUPPORT SPECIALIST TACROLIMUS BY TANDEM MASS SPECTROMETRY Routine 08/31/2022 11:20 AM RESEARCH SUPPORT SPECIALIST BASIC METABOLIC PANEL Routine 08/31/2022 11:20 AM RESEARCH SUPPORT SPECIALIST documented in this encounter Results * (ABNORMAL) Basic metabolic panel (09/07/2022 10:58 AM RESEARCH SUPPORT SPECIALIST) Potassium (External) 3.1(L) 3.6 - 5.2 mmol/L NON-INTERFACE D (ONBASE SCANS) Sodium (External) 139 135 - 145 mmol/L NON-INTERFACE D (ONBASE SCANS) Chloride (External) 104 98 - 107 mmol/L NON-INTERFACE D (ONBASE SCANS) CO2 (External) 25 22 - 29 mmol/L NON-INTERFACE D (ONBASE SCANS) Anion Gap (External) 10 7 - 15 Calc NON-INTERFACE D (ONBASE SCANS) Urea Nitrogen (External) 39(H) 8 - 24 mg/dL NON-INTERFACE D (ONBASE SCANS) Creatinine (External) 2.22(H) 0.74 - 1.35 mg/dL NON-INTERFACE D (ONBASE SCANS) GFR Estimated (External) 31(L) >=60 ml/min/1.7 3m2 NON-INTERFACE D (ONBASE SCANS) Calcium (External) 9.8 8.8 - 10.2 mg/dL NON-INTERFACE D (ONBASE SCANS) Glucose (External) 93 70 - 140 mg/dL NON-INTERFACE D (ONBASE SCANS) Blood BLOOD SPECIMEN / Unknown 09/07/2022 10:58 AM RESEARCH SUPPORT SPECIALIST Narrative BREEZE PFT - 09/10/2022 1:01 PM RESEARCH SUPPORT SPECIALIST Verified by Priscilla Mcdaniel on 09/10/2022. Provider Outside LAB - BLOOD ORDERABL ES Performing Organization Address [facility]/ZIP Co de Phone Number BREEZE PFT NON-INTERFACED (ONBASE SCANS) * Tacrolimus by Tandem Mass Spectrometry (08/31/2022 11:20 AM RESEARCH SUPPORT SPECIALIST) Pathologist [facility] Tacrolimus(FK-5 06) (External) 6.7 5.0 - 15.0 ng/mL NON-INTERFACED (ONBASE SCANS) Blood 08/31/2022 11:2 0 AM RESEARCH SUPPORT SPECIALIST Narrative BREEZE PFT - 09/02/2022 12:37 PM RESEARCH SUPPORT SPECIALIST Verified by Yudi Ruano on 09/02/2022. Qasim Jade LAB - BLOOD ORDERABL ES BREEZE PFT NON-INTERFACED (ONBASE SCANS) * (ABNORMAL) Basic metabolic panel (08/31/2022 11:20 AM RESEARCH SUPPORT SPECIALIST) Potassium (External) 3.4(L) 3.6 - 5.2 mmol/L NON-INTERFACE D (ONBASE SCANS) Sodium (External) 142 135 - 145 mmol/L NON-INTERFACE D (ONBASE SCANS) Chloride (External) 104 98 - 107 mmol/L NON-INTERFACE D (ONBASE SCANS) CO2 (External) 26 2 - 29 mmol/L NON-INTERFACE D (ONBASE SCANS) Anion Gap (External) 12 7 - 15 NON-INTERFACE D (ONBASE SCANS) Urea Nitrogen (External) 42(H) 8 - 24 mg/dL NON-INTERFACE D (ONBASE SCANS) Creatinine (External) 2.57(H) 0.74 - 1.35 mg/dL NON-INTERFACE D (ONBASE SCANS) GFR Estimated (External) 26(L) >=60 ml/min/1.7 3m2 NON-INTERFACE D (ONBASE SCANS) Calcium (External) 9.7 8.8 - 10.2 mg/dL NON-INTERFACE D (ONBASE SCANS) Glucose (External) 151(H) 70 - 140 mg/dL NON-INTERFACE D (ONBASE SCANS) Blood BLOOD SPECIMEN / Unknown 08/31/2022 11:20 AM RESEARCH SUPPORT SPECIALIST Narrative JESSICA PFT - 09/02/2022 12:37 PM RESEARCH SUPPORT SPECIALIST Verified by Yudi Ruano on 09/02/2022. Qasim Jade LAB - BLOOD ORDERABL ES JESSICA PFT NON-INTERFACED (ONBASE SCANS) documented in this encounter Visit Diagnoses Not on filedocumented in this encounter Care Teams Licensing Coordinator Relationship Specialty Start Date End Date Momo Forbes MD PCP - General Family Practice 01/02/14 Joseph Quintana MD 717 [facility] 353 [facility] [address] [place] [address] Assigned Nephrology Provider 03/29/21 09/10/22 documented as of this encounter
--- OUTSIDE RECORDS SUMMARY | 2023-08-31 13:12 | XMS_ITS | Encounter Summary ---
Author Name Unknown Organization [facility] Address [address] [place] [address] Care Team Providers Care Deputy Sheriff Civil Division Name Role Phone Momo Forbes MD Primary Care Provider [phone] Encounter Details Date Type Department Care Team (Late st Contact Info) Description 10/05/2022 External Order Results [facility] [address] [place] [address] Outside, Provider Social History Tobacco Use Types [...] Comments CBC WITH PLATELETS & DIFFERENTIAL Routine 10/05/2022 10:00 AM VENEER PULLER TACROLIMUS BY TANDEM MASS SPECTROMETRY Routine 10/05/2022 10:00 AM VENEER PULLER BASIC METABOLIC PANEL Routine 10/05/2022 10:00 AM VENEER PULLER documented in this encounter Results * Tacrolimus by Tandem Mass Spectrometry (10/05/2022 10:00 AM VENEER PULLER) Tacrolimus(FK-5 06) (External) 7.6 See scan ng/mL NON-INTERFACED (ONBASE SCANS) Blood 10/05/2022 10:0 0 AM VENEER PULLER Narrative JESSICA PFT - 10/18/2022 3:21 PM VENEER PULLER Verified by Cassie Florian on 10/18/2022. Provider Outside LAB - BLOOD ORDERABL ES JESSICA PFT NON-INTERFACED (ONBASE SCANS) * (ABNORMAL) CBC with Platelets & Differential (10/05/2022 10:00 AM VENEER PULLER) WBC Count (External) 5.68 4.50 - 11.00 K/uL NON-INTERFACE D (ONBASE SCANS) RBC Count (External) 4.92 4.30 - 5.90 m/uL NON-INTERFACE D (ONBASE SCANS) Hemoglobin (External) 12.9(L) 13.5 - 17.5 gm/dL NON-INTERFACE D (ONBASE SCANS) Hematocrit (External) 42.3 37.0 - 53.0 % NON-INTERFACE D (ONBASE SCANS) MCV (External) 86 80 - 100 fL NON-INTERFACE D (ONBASE SCANS) MCH (External) 26 26 - 34 pg NON- INTERFACE D (ONBASE SCANS) MCHC (External) 31(L) 32 - 36 gm/dL NON-INTERFACE D (ONBASE SCANS) Platelet Count (External) 125(L) 140 - 440 K/uL NON-INTERFACE D (ONBASE SCANS) RDW (External) 16.4(H) 11.5 - 15.5 % NON-INTERFACE D (ONBASE SCANS) % Neutrophils (External) 64.0 42.0 - 72.0 % NON-INTERFACE D (ONBASE SCANS) % Lymphocytes (External) 20.2 20 - 44 % NON-INTERFACE D (ONBASE SCANS) % Monocytes (External) 8.3 0.0 - 11.0 % NON-INTERFACE D (ONBASE SCANS) % Eosinophils (External) 6.9 0.0 - 7.0 % NON-INTERFACE D (ONBASE SCANS) % Basophils (External) 0.4 0.0 - 3.0 % NON-INTERFACE D (ONBASE SCANS) Absolute Neutrophils (External) 3.64 1.7 - 7.0 K/uL NON-INTERFACE D (ONBASE SCANS) Absolute Lymphocytes (External) 1.15 0.90 - 2.90 K/uL NON-INTERFACE D (ONBASE SCANS) Absolute Monocytes (External) 0.50 0.00 - 0.90 K/UL NON-INTERFACE D (ONBASE SCANS) Absolute Eosinophils (External) 0.39 0.00 - 0.50 K/uL NON-INTERFACE D (ONBASE SCANS) Absolute Basophils (External) 0.02 0.00 - 0.30 K/uL NON-INTERFACE D (ONBASE SCANS) Blood BLOOD SPECIMEN / Unknown 10/05/2022 10:00 AM VENEER PULLER Narrative MARLENEE PFT - 10/18/2022 3:21 PM VENEER PULLER Verified by Cassie Florian on 10/18/2022. Provider Outside LAB - BLOOD ORDERABL ES MARLENEBea PFT NON-INTERFACED (ONBASE SCANS) * (ABNORMAL) Basic metabolic panel (10/05/2022 10:00 AM VENEER PULLER) Sodium (External) 140 135 - 149 mmol/L NON-INTERFACED (ONBASE SCANS) Potassium (External) 5.0 3.6 - 5.1 mmol/L NON-INTERFACED (ONBASE SCANS) Chloride (External) 108 96 - 114 mmol/L NON-INTERFACED (ONBASE SCANS) CO2 (External) 25 20 - 32 mmol/L NON-INTERFACED (ONBASE SCANS) Urea Nitrogen (External) 43(H) 7 - 30 mg/dL NON-INTERFACED (ONBASE SCANS) Creatinine (External) 2.6(H) 0.5 - 1.5 mg/dL NON-INTERFACED (ONBASE SCANS) GFR Estimated (External) 25 ml/min NON-INTERFACED (ONBASE SCANS) Calcium (External) 9.7 8.4 - 10.6 mg/dL NON-INTERFACED (ONBASE SCANS) Glucose (External) 144(H) 60 - 115 mg/dL NON-INTERFACED (ONBASE SCANS) Blood BLOOD SPECIMEN / Unknown 10/05/2022 10:00 AM VENEER PULLER Narrative JESSICA PFT - 10/18/2022 3:21 PM VENEER PULLER Verified by Cassie Florian on 10/18/2022. Provider Outside LAB - BLOOD ORDERABL ES JESSICA PFT NON-INTERFACED (ONBASE SCANS) documented in this encounter Visit Diagnoses Not on filedocumented in this encounter Care Teams Deputy Sheriff Civil Division Relationship Specialty Start Date End Date Momo Forbes MD PCP - General Family Practice 01/02/14 documented as of this encounter
--- OUTSIDE RECORDS SUMMARY | 2023-08-31 13:12 | XMS_ITS | Encounter Summary ---
Author Name Unknown Organization [facility] Address [address] [place] [address] Care Team Providers Care Chainstitch Felled Seam Operator Name Role Phone Momo Forbes MD Primary Care Provider [phone] Encounter Details Date Type Department Care Team (Late st Contact Info) Description 09/14/2022 External Order Results [facility] [address] [place] [address] Outside, Provider Social History Tobacco Use Types [...] Comments CBC WITH PLATELETS & DIFFERENTIAL Routine 09/14/2022 10:30 AM PARK POLICE HEMOGLOBIN A1C Routine 09/14/2022 10:30 AM PARK POLICE documented in this encounter Results * (ABNORMAL) Hemoglobin A1c (09/14/2022 10:30 AM PARK POLICE) Hemoglobin A1C (External) 7.28(H) 0 - 5.6 % NON-INTERFACE D (ONBASE SCANS) Blood BLOOD SPECIMEN / Unknown 09/14/2022 10:30 AM PARK POLICE Narrative JESSICA PFT - 09/15/2022 7:58 AM PARK POLICE Verified by Ruperto Pepper on 09/15/2022. Momo Forbes MD LAB - BLOOD ORDERABL ES JESSICA THIBODEAUX NON-INTERFACED (ONBASE SCANS) * (ABNORMAL) CBC with Platelets & Differential (09/14/2022 10:30 AM PARK POLICE) Pathologist [facility] WBC Count (External) 5.60 4.50 - 11.00 K/uL NON-INTERFACE D (ONBASE SCANS) RBC Count (External) 4.28(L) 4.30 - 5.90 m/uL NON-INTERFACE D (ONBASE SCANS) Hemoglobin (External) 11.2(L) 13.5 - 17.5 gm/dl NON-INTERFACE D (ONBASE SCANS) Hematocrit (External) 37.4 37.0 - 53.0 % NON-INTERFACE D (ONBASE SCANS) MCV (External) 87 80 - 100 fL NON-INTERFACE D (ONBASE SCANS) MCH (External) 26 26 - 34 pg NON- INTERFACE D (ONBASE SCANS) MCHC (External) 30(L) 32 - 36 gm/dL NON-INTERFACE D (ONBASE SCANS) Platelet Count (External) 116(L) 140 - 440 K/uL NON-INTERFACE D (ONBASE SCANS) RDW (External) 17.5(H) 11.5 - 15.5 % NON-INTERFACE D (ONBASE SCANS) % Neutrophils (External) 73.1(H) 42.0 - 72.0 % NON-INTERFACE D (ONBASE SCANS) % Lymphocytes (External) 14.5(L) 20 - 44 % NON-INTERFACE D (ONBASE SCANS) % Monocytes (External) 7.5 0.0 - 11.0 % NON-INTERFACE D (ONBASE SCANS) % Eosinophils (External) 4.5 0.0 - 7.0 % NON-INTERFACE D (ONBASE SCANS) % Basophils (External) 0.4 0.0 - 3.0 % NON-INTERFACE D (ONBASE SCANS) Absolute Neutrophils (External) 4.10 1.7 - 7.0 K/uL NON-INTERFACE D (ONBASE SCANS) Absolute Lymphocytes (External) 0.80(L) 0.90 - 2.90 K/uL NON-INTERFACE D (ONBASE SCANS) Absolute Monocytes (External) 0.40 0.00 - 0.90 K/UL NON-INTERFACE D (ONBASE SCANS) Absolute Eosinophils (External) 0.25 0.00 - 0.50 K/UL NON-INTERFACE D (ONBASE SCANS) Absolute Basophils (External) 0.02 0.00 - 0.30 K/uL NON-INTERFACE D (ONBASE SCANS) Blood BLOOD SPECIMEN / Unknown 09/14/2022 10:30 AM [employer] Narrative BREEZE PFT - 09/15/2022 7:58 AM [employer] Verified by Ruperto Pepper on 09/15/2022. Momo Forbes MD LAB - BLOOD ORDERABL ES JESSICA PFT NON-INTERFACED (ONBASE SCANS) documented in this encounter Visit Diagnoses Not on filedocumented in this encounter Care Teams Chainstitch Felled Seam Operator Relationship Specialty Start Date End Date Momo Forbes MD PCP - General Family Practice 01/02/14 documented as of this encounter
--- OUTSIDE RECORDS SUMMARY | 2023-08-31 13:12 | XMS_ITS | Encounter Summary ---
Author Name Unknown Organization [facility] Address [address] [place] [address]. [place] [address] Care Team Providers Care Breadman Name Role Phone Momo Forbes MD Primary Care Provider Joseph Quintana MD Unavailable [phone] Encounter Details Date Type Department Care Team (Late st Contact Info) Description 09/01/2022 Telephone [facility] [address] [place] [address] Gretta Peacock, RN Social History [...] Telephone Encounter - Gretta Peacock RN - 09/03/2022 11:16 AM CST Bactrim was stopped 08/13, augmentin was started after sensitives results ISSUE: Tacrolimus IR level 6.7 on 08/31/2022, goal , dose 0.5 mg/ 1 mg2 BID. PLAN: Please call patient and confirm this was an accurate 12-hour trough. Verify Tacrolimus IR dose 0.5 mg/ 1 mg BID. Confirm no new medications or illness. Confirm no missed doses. If accurate trough andaccurate dose, decrease Tacrolimus IR dose to 0.5 mg BID and repeat labs in 1 weeks OUTCOME: Spoke with patient, they confirm accurate trough level and current dose 0.5mg/1 mg BID. Patient confirmed dose change to 0.5 mg BID and to repeat labs in 1 weeks. Orders sent to preferred pharmacy for dose change and lab for repeat labs. Patient voiced understanding of plan. tac order sent to Gretta Peacock RN Associate Faculty [phone] R CANE FARM MANAGER * Telephone Encounter - Gretta Peacock RN - 09/01/2022 3:00 PM CST ISSUE: abnormal CT scan obtained while in ED at [facility] July 2022. Patient was also treatedwith Bactrim double strength for UTI in July. Last creatinine level available in Care everywhere above baseline CT impression discussed at Chronic pancrease meeting. PLAN repeat UAUC and labs 1 week renal tx US OUTCOME Fax number for labs at TCU: [phone] Spoke with floor RN, Discussed repeating labs early next week with UA and UC. Asked for CB from RN bead supervisor to discuss discharge plan and getting patient set up for renal tx US. Gretta Peacock natural sciences professorAssociate Faculty [phone] R CANE FARM MANAGER documented in this encounter Plan of Treatment Not on file documented as of this encounter Visit Diagnoses Not on filedocumented in this encounter Care Teams Breadman Relationship Specialty Start Date End Date Momo Forbes MD PCP - General Family Practice 01/02/14 Joseph Quintana MD [address] [place] [address] Assigned Nephrology Provider 03/29/21 09/10/22 documented as of this encounter
--- OUTSIDE RECORDS SUMMARY | 2023-08-31 13:12 | XMS_ITS | Encounter Summary ---
Author Name Unknown Organization [facility] Address [address] [place] [address]. [place] [address] Care Team Providers Care Baby Formula Mixer Name Role Phone Momo Forbes MD Primary Care Provider Joseph Quintana MD Unavailable [phone] Encounter Details Date Type Department Care Team (Latest Contact Info) Description 08/13/2022 Medical Correspondence [facility] [address] [place] [address] Outside, Provider [facility] [email or web address] [facility] Social History Tobacco Use Types Packs/Day Years [...] Coronavirus/COVID-19? Unable to assess 10/28/2022 12:48 PM FLOOR PLAN ADJUSTER documented as of this encounter Plan of Treatment Not on file documented as of this encounter Visit Diagnoses Not on filedocumented in this encounter Care Teams Baby Formula Mixer Relationship Specialty Start Date End Date Momo Forbes MD PCP - General Family Practice 01/02/14 Joseph Quintana MD [address] [address] Assigned Nephrology Provider 03/29/21 09/10/22 documented as of this encounter
--- OUTSIDE RECORDS SUMMARY | 2023-08-31 13:12 | XMS_ITS | Encounter Summary ---
Author Name Unknown Organization [facility] Address [address] [place] [address] Care Team Providers Care Paper Gluing Operator Name Role Phone Momo Forbes MD Primary Care Provider [phone] Encounter Details Date Type Department Care Team (Late st Contact Info) Description 09/27/2022 Telephone [facility] [address] [place] [address] Gretta Peacock, BOGDAN Social History Tobacco [...] Telephone Encounter - Gretta Peacock RN - 09/27/2022 9:00 PM CST ISSUE: transplant renal US orders sent 09/15/2022 to follow up on abnormal abd CT scan obtained at [facility] 07/2022. PLAN: call patient to ensure US has been scheduled as well as to discuss standing transplant lab orders OUTCOME: patient states he has renal US scheduled this month at [facility]. Had urology apt where cystoscopy was ordered. Lab orders updated at [facility]. Patient aware he is due for labs Gretta Peacock RN Drapery Installer [phone] MIXER documented in this encounter Plan of Treatment Not on file documented as of this encounter Visit Diagnoses Not on filedocumented in this encounter Care Teams Paper Gluing Operator Relationship Specialty Start Date End Date Momo Forbes MD PCP - General Family Practice 01/02/14 documented as of this encounter
--- OUTSIDE RECORDS SUMMARY | 2023-08-31 13:13 | XMS_ITS | Encounter Summary ---
Author Name Unknown [facility] Address [address] [place] [address] Care Team Providers Care Solar Lab Technician Name Role Phone Momo Forbes MD Primary Care Provider Joseph Quintana MD Unavailable [phone] Encounter Details Date Type Department Care Team (Late st Contact Info) Description 11/16/2021 External Order Results [facility] [address] [place] [address] Outside, Provider Social History Tobacco Use Types [...] Procedure Name Priority Date/Time Associated Diagnosis Comments PSA TUMOR MARKER Routine 11/16/2021 7:12 PM CDT LIPID PROFILE Routine 11/16/2021 7:12 PM CDT ALT Routine 11/16/2021 7:12 PM CDT BASIC METABOLIC PANEL Routine 11/16/2021 7:12 PM CDT CBC WITH PLATELETS & DIFFERENTIAL Routine 11/16/2021 4:35 PM CDT HEMOGLOBIN A1C Routine 11/16/2021 2:05 PM CDT documented in this encounter Results * PSA tumor marker (11/16/2021 7:12 PM CDT) PSA (External) 0.30 0.10 - 4.00 NG/ML NON-INTERFACED (ONBASE SCANS) Blood 11/16/2021 7:12 PM CDT Narrative ZACHERYEZE PFT - 12/02/2021 8:18 AM CDT Verified by Yudi Ruano on 12/02/2021. Felicia Tate MD LAB - BLOOD SURYA HURST JESSICA PFT NON-INTERFACED (ONBASE SCANS) * (ABNORMAL) Basic metabolic panel (11/16/2021 7:12 PM CDT) Glucose (External) 271(H) 60 - 115 mg/dL NON-INTERFACED (ONBASE SCANS) Urea Nitrogen (External) 32(H) 7 - 30 mg/dL NON-INTERFACED (ONBASE SCANS) Creatinine (External) 1.8(H) 0.5 - 1.5 mg/dL NON-INTERFACED (ONBASE SCANS) Sodium (External) 136 135 - 149 mmol/L NON-INTERFACED (ONBASE SCANS) Potassium (External) 4.4 3.6 - 5.1 mmol/L NON-INTERFACED (ONBASE SCANS) Chloride (External) 101 96 - 114 mmol/L NON-INTERFACED (ONBASE SCANS) CO2 (External) 23 20 - 32 mmol/L NON-INTERFACED (ONBASE SCANS) Calcium (External) 9.7 8.4 - 10.6 mg/dL NON-INTERFACED (ONBASE SCANS) Blood 11/16/2021 7:12 PM CDT Narrative MARLENEE PFT - 12/02/2021 8:18 AM CDT Verified by Yudi Ruano on 12/02/2021. Felicia Tate MD LAB - BLOOD ORDE ARIS Performing Organization Address [facility]/ZIP Co de Phone Number BREEZE PFT NON-INTERFACED (ONBASE SCANS) * ALT (11/16/2021 7:12 PM CDT) ALT (External) 9 4 - 50 U/L NON- INTERFACED (ONBASE SCANS) Blood 11/16/2021 7:12 PM CDT Narrative BREEZE PFT - 12/02/2021 8:18 AM CDT Verified by Yudi Ruano on 12/02/2021. Felicia Tate MD LAB - BLOOD ORDE ARIS Performing Organization Address [facility] de Phone Number ZACHERYEZE PFT NON-INTERFACED (ONBASE SCANS) * (ABNORMAL) Lipid Profile (11/16/2021 7:12 PM CDT) Cholesterol (External) 98 90 - 199 MG/DL NON-INTERFACE D (ONBASE SCANS) Triglycerides (External) 113 40 - 149 MG/DL NON-INTERFACE D (ONBASE SCANS) LDL-Cholesterol (External) 39 <100 mg/dL NON-INTERFACE D (ONBASE SCANS) HDL Cholesterol (External) 36(L) >=40 mg/dL NON-INTERFACE D (ONBASE SCANS) Blood 11/16/2021 7:12 PM CDT Narrative BREEZE PFT - 12/02/2021 8:18 AM CDT Verified by Yudi Ruano on 12/02/2021. Felicia Tate MD LAB - BLOOD ORDE ARIS Performing Organization Address [facility] Co de Phone Number BREEZE PFT NON-INTERFACED (ONBASE SCANS) * (ABNORMAL) CBC with Platelets & Differential (11/16/2021 4:35 PM CDT) WBC Count (External) 6.8 4.5 - 11.0 K/uL NON-INTERFACE D (ONBASE SCANS) RBC Count (External) 4.68 4.30 - 5.90 M/UL NON-INTERFACE D (ONBASE SCANS) Hemoglobin (External) 12.6(L) 13.5 - 17.5 GM/DL NON-INTERFACE D (ONBASE SCANS) Hematocrit (External) 39.4 37 - 53 % NON-INTERFACE D (ONBASE SCANS) MCV (External) 84 80 - 100 FL NON-INTERFACE D (ONBASE SCANS) MCH (External) 27 26 - 34 PG NON- INTERFACE D (ONBASE SCANS) MCHC (External) 32 32 - 36 GM/DL NON-INTERFACE D (ONBASE SCANS) Platelet Count (External) 147 140 - 440 K/UL NON-INTERFACE D (ONBASE SCANS) % Neutrophils (External) 69.1 42 - 72 % NON-INTERFACE D (ONBASE SCANS) % Lymphocytes (External) 19.5(L) 20 - 44 % NON-INTERFACE D (ONBASE SCANS) % Monocytes (External) 7.7 0 - 11 % NON-INTERFACE D (ONBASE SCANS) % Eosinophils (External) 3.4 0 - 7 % NON-INTERFACE D (ONBASE SCANS) % Basophils (External) 0.3 0.0 - 3.0 % NON-INTERFACE D (ONBASE SCANS) Absolute Neutrophils (External) 4.7 1.7 - 7.0 K/UL NON-INTERFACE D (ONBASE SCANS) Absolute Lymphocytes (External) 1.3 0.9 - 2.9 K/UL NON-INTERFACE D (ONBASE SCANS) Absolute Monocytes (External) 0.5 0.0 - 0.9 K/UL NON-INTERFACE D (ONBASE SCANS) Absolute Eosinophils (External) 0.2 0.0 - 0.5 K/UL NON-INTERFACE D (ONBASE SCANS) Absolute Basophils (External) 0.0 0.0 - 0.3 K/UL NON-INTERFACE D (ONBASE SCANS) Absolute Immature Granulocytes (External) 0.0 K/uL NON-INTERFACE D (ONBASE SCANS) % Immature Granulocytes (External) 0.0 % NON-INTERFACE D (ONBASE SCANS) Blood 11/16/2021 4:35 PM CDT Narrative JESSICA ANDREAT - 12/02/2021 8:18 AM CDT Verified by Priscilla Mcdaniel on 12/02/2021. Provider Outside LAB - BLOOD ORDERABL ES BREEZE PFT NON-INTERFACED (ONBASE SCANS) * (ABNORMAL) Hemoglobin A1c (11/16/2021 2:05 PM CDT) Hemoglobin A1C (External) 10.2(H) <=6.9 % NON-INTERFACE D (ONBASE SCANS) Blood 11/16/2021 2:05 PM CDT Narrative BREEZE PFT - 12/02/2021 8:17 AM CDT Verified by Praful Huff on 12/02/2021. Momo Forbes MD LAB - BLOOD ORDERABL ES BREEZE PFT NON-INTERFACED (ONBASE SCANS) documented in this encounter Visit Diagnoses Not on filedocumented in this encounter Care Teams Solar Lab Technician Relationship Specialty Start Date End Date Momo Forbes MD PCP - General Family Practice 01/02/14 Joseph Quintana MD [address] [place] [address] [address] [place] [address] Assigned Nephrology Provider 03/29/21 09/10/22 documented as of this encounter
--- OUTSIDE RECORDS SUMMARY | 2023-08-31 13:13 | XMS_ITS | Encounter Summary ---
Author Name Unknown [facility] Address [address] [place] [address]. [place] [address] Care Team Providers Care Advertising Clerk Name Role Phone Momo Forbes MD Primary Care Provider [phone] Joseph Quintana MD Unavailable [phone] Encounter Details Date Type Department Care Team (Latest Contact Info) Description 05/16/2019 External Order Results [facility] [address] [place] [address] Nurse, [facility] Aftercare following organ transplant; Kidney replaced by transplant; Encounter for long-term current use of medication Social History Tobacco Use Types Packs/Day Years [...] Comments CBC WITH PLATELETS & DIFFERENTIAL Routine 05/16/2019 3:43 PM CDT BASIC METABOLIC PANEL Routine 05/16/2019 3:43 PM CDT Aftercare following organ transplant Kidney replaced by transplant Encounter for long-term current use of medication PROTEIN RANDOM URINE Routine 05/16/2019 3:36 PM CDT Aftercare following organ transplant Kidney replaced by transplant Encounter for long-term current use of medication documented in this encounter Results * (ABNORMAL) CBC with platelets differential (05/16/2019 3:43 PM CDT) WBC Count (External) 4.6 4.5 - 11.0 thou/cu mm LABDE SCAN RBC Count (External) 5.42 4.30 - 5.90 mil/cu mm LABDE SCAN Hemoglobin (External) 15.7 13.5 - 17.5 g/dL LABDE SCAN Hematocrit (External) 46.1 37.0 - 53.0 % LABDE SCAN MCV (External) 85 80 - 100 fL LABDE SCAN MCH (External) 29.0 26.0 - 34.0 Pg LABDE SCAN MCHC (External) 34.1 32.0 - 36.0 g/dL LABDE SCAN RDW (External) 14.1 11.5 - 15.5 % LABDE SCAN Platelet Count (External) 90(L) 140 - 440 thou/cu mm LABDE SCAN % Neutrophils (External) 58.3 % LABDE SCAN % Lymphocytes (External) 26.7 % LABDE SCAN % Monocytes (External) 8.7 % LABDE SCAN % Eosinophils (External) 6.1 % LABDE SCAN % Basophils (External) 0.2 % LABDE SCAN Absolute Neutrophils (External) 2.7 1.7 - 7.0 thou/cu mm LABDE SCAN Absolute Lymphocytes (External) 1.2 0.9 - 2.9 thou/cu mm LABDE SCAN Absolute Monocytes (External) 0.4 <0.9 thou/cu mm LABDE SCAN Absolute Eosinophils (External) 0.3 <0.5 thou/cu mm LABDE SCAN Absolute Basophils (External) 0.0 <0.3 thou/cu mm LABDE SCAN Blood specimen (specimen) 05/16/2019 3:43 PM CDT Yohana THIBODEAUX - 05/17/2019 1:22 PM CDT Verified by Praful Huff on 05/17/2019. Patient Reported LAB - BLOOD ORDERABL ES BREEZE PFT LABDE SCAN * (ABNORMAL) Basic metabolic panel (05/16/2019 3:43 PM CDT) Sodium (External) 136 135 - 145 mmol/L LABDE SCAN Potassium (External) 4.2 3.5 - 5.0 mmol/L LABDE SCAN Chloride (External) 105 98 - 110 mmol/L LABDE SCAN CO2 (External) 24 21 - 31 mmol/L LABDE SCAN Anion Gap (External) 7 5 - 18 LABDE SCAN Glucose (External) 266(H) 65 - 100 mg/dL LABDE SCAN Calcium (External) 9.9 8.5 - 10.5 mg/dL LABDE SCAN Urea Nitrogen (External) 17 8 - 25 mg/dL LABDE SCAN Creatinine (External) 1.27(H) 0.72 - 1.25 mg/dL LABDE SCAN BUN/Creatinine Ratio (External) 13 10 - 20 LABDE SCAN GFR Estimated (if ) (External) >60 >60 ml/min/1.7 3m2 LABDE SCAN GFR Estimated (External) 56(L) >60 ml/min/1.7 3m2 LABDE SCAN Blood specimen (specimen) 05/16/2019 3:43 PM CDT Yohana LOPEZ PFT - 05/17/2019 1:22 PM CDT Verified by Praful Huff on 05/17/2019. Joseph Quintana MD LAB - BLOOD SURYA HURST JESSICA PF LABDE SCAN * (ABNORMAL) Protein random urine with Creat Ratio (05/16/2019 3:36 PM CDT) Protein Random Urine (External) 41(H) <=14 mg/dL LABDE SCAN Creatinine Urine mg/dL (External) 59.4(L) 63.0 - 166.0 mg/dL LABDE SCAN Protein Total Ur per Cr (External) 0.7(H) <0.2 LABDE SCAN Urine specimen (specimen) 05/16/2019 3:36 PM CDT Narrative JESSICA PFT - 05/17/2019 1:22 PM CDT Verified by Praful Huff on 05/17/2019. Joseph Quintana MD LAB - URINE SURYA HURST JESSICA PFT LABDE SCAN documented in this encounter Visit Diagnoses Diagnosis Aftercare following organ transplant Kidney replaced by transplant Encounter for long-term current use of medication documented in this encounter Care Teams Advertising Clerk Relationship Specialty Start Date End Date Momo Forbes MD PCP - General Family Practice 01/02/14 Joseph Quintana MD [address] [place] [address] Assigned Nephrology Provider 03/29/21 09/10/22 documented as of this encounter
--- OUTSIDE RECORDS SUMMARY | 2023-08-31 13:13 | XMS_ITS | Encounter Summary ---
Author Name Unknown Organization [facility] Address [address] [place] [address]. [place] [address] Care Team Providers Care Network Technician Name Role Phone Momo Forbes MD Primary Care Provider [phone] Joseph Quintana MD Unavailable [phone] Encounter Details Date Type Department Care Team (Late st Contact Info) Description 07/08/2020 External Order Results [facility] [address] [place] [address] Outside, Provider Social History Tobacco Use Types [...] Name Priority Date/Time Associated Diagnosis Comments EXTERNAL LAB RESULTS Routine 07/08/2020 9:23 AM LIFE INSURANCE UNDERWRITER documented in this encounter Results * External Lab Results (07/08/2020 9:23 AM LIFE INSURANCE UNDERWRITER) Scan Lab Results (External) View Image LABDE SCAN Comment:HLA Antibody Screen, Class I and Class II 07/08/2020 9:23 AM LIFE INSURANCE UNDERWRITER Narrative JESSICA PFT - 07/16/2020 2:42 PM LIFE INSURANCE UNDERWRITER Verified by Ruperto Pepper on 07/15/2020. Patient Reported LABORATORY JESSICA PFT LABDE SCAN documented in this encounter Visit Diagnoses Not on filedocumented in this encounter Care Teams Network Technician Relationship Specialty Start Date End Date Momo Forbes MD PCP - General Family Practice 01/02/14 Joseph Quintana MD [address] [place] [address] Assigned Nephrology Provider 03/29/21 09/10/22 documented as of this encounter
--- OUTSIDE RECORDS SUMMARY | 2023-08-31 13:13 | XMS_ITS | Encounter Summary ---
Author Name Unknown Organization [place] Address [facility] [place] [address] Care Team Providers Care Senior Systems Architect Name Role Phone Momo Forbes MD Primary Care Provider [phone] Joseph Quintana MD Unavailable [phone] Encounter Details Date Type Department Care Team (Late st Contact Info) Description 05/26/2020 External Order Results [facility] [address] [place] [address] Outside, Provider Social History Tobacco Use [...] Comments CBC WITH PLATELETS & DIFFERENTIAL Routine 05/26/2020 10:25 AM CDT PROTEIN RANDOM URINE Routine 05/26/2020 10:25 AM CDT documented in this encounter Results * (ABNORMAL) Protein random urine with Creat Ratio (05/26/2020 10:25 AM CDT) Protein Random Urine (External) 114 mg/dL LABDE SCAN Creatinine Urine mg/dL (External) 70 mg/dL LABDE SCAN Protein Total Ur per Cr (External) 1.62(H) 0 - 0.19 LABDE SCAN Urine specimen (specimen) 05/26/2020 10:25 AM CDT Narrative JESSICA PFT - 05/27/2020 12:06 PM CDT Verified by Ruperto Pepper on 05/27/2020. Patient Reported LAB - URINE ORDERABL ES JESSICA PFT LABDE SCAN * (ABNORMAL) CBC with platelets differential (05/26/2020 10:25 AM CDT) WBC Count (External) 4.49(L) 5.00 - 10.00 K/UL LABDE SCAN RBC Count (External) 5.31 4.32 - 5.72 M/UL LABDE SCAN Hemoglobin (External) 15.1 13.5 - 17.5 GM/DL LABDE SCAN Hematocrit (External) 46.5 38.8 - 50.0 % LABDE SCAN MCV (External) 88 81 - 95 FL LABDE SCAN MCH (External) 28 27 - 34 PG LABDE SCAN MCHC (External) 33 32 - 36 GM/DL LABDE SCAN Platelet Count (External) 118(L) 150 - 450 K/UL LABDE SCAN % Neutrophils (External) 58.2 50.0 - 70.0 % LABDE SCAN % Lymphocytes (External) 22.9(L) 25.0 - 45.0 % LABDE SCAN % Monocytes (External) 9.8 0.00 - 11.0 % LABDE SCAN % Eosinophils (External) 8.5(H) 0.0 - 7.0 % LABDE SCAN % Basophils (External) 0.4 0.0 - 3.0 % LABDE SCAN % Immature Granulocytes (External) 0.2 % LABDE SCAN RDW (External) 14.6 11.5 - 15.3 % LABDE SCAN Absolute Neutrophils (External) 2.61 1.70 - 7.00 K/UL LABDE SCAN Absolute Lymphocytes (External) 1.03 0.90 - 2.90 K/UL LABDE SCAN Absolute Monocytes (External) 0.44 0.30 - 0.90 K/UL LABDE SCAN Absolute Eosinophils (External) 0.38 0.00 - 0.50 K/UL LABDE SCAN Absolute Basophils (External) 0.02 0.00 - 0.20 K/UL LABDE SCAN Absolute Immature Granulocytes (External) 0.01 K/UL LABDE SCAN Blood specimen (specimen) 05/26/2020 10:25 AM CDT Narrative ZACHERYEZE PFT - 05/27/2020 12:06 PM CDT Verified by Andrade Barajas on 05/27/2020. Patient Reported LAB - BLOOD ORDERABL ES BRETYLER PFT LABDE SCAN documented in this encounter Visit Diagnoses Not on filedocumented in this encounter Care Teams Senior Systems Architect Relationship Specialty Start Date End Date Momo Forbes MD PCP - General Family Practice 01/02/14 Joseph Quintana MD [address] [place] [address] Assigned Nephrology Provider 03/29/21 09/10/22 documented as of this encounter
--- OUTSIDE RECORDS SUMMARY | 2023-08-31 13:13 | XMS_ITS | Encounter Summary ---
Author Name Unknown [facility] Address [address] [place] [address] Care Team Providers Care Visual C Developer Name Role Phone Momo Forbes MD Primary Care Provider [phone] Joseph Quintana MD Unavailable [phone] Encounter Details Date Type Department Care Team (Latest Contact Info) Description 09/09/[address] [facility] [address] [place] [address] Nurse, [facility] Kidney replaced by transplant Social History Tobacco Use Types Packs/Day Years Used Date Smoking Tobacco: Former Cigars Q uit: 08/22/2006 Smokeless Tobacco: Never Alcohol Use Standard Drinks/Week Comments Yes 0 (1 standard drink = 0.6 oz pur e alcohol) occasional drink. Sex and Gender Information Value Date Recorded Sex Assigned at Not on file Gender Identity Not on file Sexual Orientation Not on file documented as of this encounter Plan of Treatment Not on file documented as of this encounter Procedures Procedure Name Priority Date/Time Associated Diagnosis Comments HEMOGLOBIN A1C Routine 07/15/2017 10:48 AM EMBALMER/FUNERAL DIRECTOR BASIC METABOLIC PANEL Routine 07/15/2017 10:48 AM EMBALMER/FUNERAL DIRECTOR Kidney replaced by transplant HEMOGLOBIN A1C Routine 05/30/2017 9:32 AM CDT BASIC METABOLIC PANEL Routine 05/30/2017 9:32 AM CDT Kidney replaced by transplant CBC WITH PLATELETS Routine 05/30/2017 9: 32 AM CDT Kidney replaced by transplant LIPID PROFILE Routine 01/19/2017 9:30 AM CDT HEMOGLOBIN A1C Routine 01/19/2017 9:30 AM CDT ALT Routine 01/19/2017 9:30 AM CDT BASIC METABOLIC PANEL Routine 01/19/2017 9:30 AM CDT documented in this encounter Results * (ABNORMAL) Hemoglobin A1c (07/15/2017 10:48 AM EMBALMER/FUNERAL DIRECTOR) Hemoglobin A1C (External) >14.0(H) <=6.4 % LABDE SCAN Blood specimen (specimen) 07/15/2017 10:48 AM EMBALMER/FUNERAL DIRECTOR Narrative JESSICA PFT - 09/09/2017 9:36 PM EMBALMER/FUNERAL DIRECTOR Verified by Sharon Martinez on 09/09/2017. Patient Reported LAB - BLOOD ORDERABL ES JESSICA PFT LABDE SCAN * (ABNORMAL) Basic metabolic panel (07/15/2017 10:48 AM EMBALMER/FUNERAL DIRECTOR) Sodium (External) 135 135 - 145 mmol/L LABDE SCAN Potassium (External) 4.2 3.5 - 5.0 mmol/L LABDE SCAN Chloride (External) 104 98 - 110 mmol/L LABDE SCAN CO2 (External) 22 21 - 31 mmol/L LABDE SCAN Anion Gap (External) 9 5 - 18 LABDE SCAN Glucose (External) 347(H) 65 - 100 mg/dL LABDE SCAN Calcium (External) 10.1 8.5 - 10.5 mg/dL LABDE SCAN Urea Nitrogen (External) 26(H) 8 - 25 mg/dL LABDE SCAN Creatinine (External) 1.53(H) 0.72 - 1.25 mg/dL LABDE SCAN BUN/Creatinine Ratio (External) 17 10 - 20 LABDE SCAN GFR Estimated (if ) (External) 55(L) >60 ml/min/1.7 3m2 LABDE SCAN GFR Estimated (External) 46(L) >60 ml/min/1.7 3m2 LABDE SCAN Blood specimen (specimen) 07/15/2017 10:48 AM EMBALMER/FUNERAL DIRECTOR Narrative ZACHERYEZE PFT - 09/09/2017 9:36 PM EMBALMER/FUNERAL DIRECTOR Verified by Sharon Martinez on 09/09/2017. Orlando Richey MD LAB - BLOOD ORDERABL ES BREEZE PFT LABDE SCAN * (ABNORMAL) Hemoglobin A1c (05/30/2017 9:32 AM CDT) Hemoglobin A1C (External) 14.0(H) <=6.4 % LABDE SCAN Blood specimen (specimen) 05/30/2017 9:32 AM CDT Narrative ZACHERYEZE PFT - 09/09/2017 9:39 PM EMBALMER/FUNERAL DIRECTOR Verified by Sharon Martinez on 09/09/2017. Patient Reported LAB - BLOOD ORDERABL ES BREEZE PFT LABDE SCAN * (ABNORMAL) CBC with platelets (05/30/2017 9:32 AM CDT) WBC Count (External) 4.4(L) 4.5 - 11.0 thou/cu mm LABDE SCAN RBC Count (External) 5.48 4.30 - 5.90 mil/cu mm LABDE SCAN Hemoglobin (External) 15.7 13.5 - 17.5 g/dL LABDE SCAN Hematocrit (External) 45.8 37.0 - 53.0 % LABDE SCAN MCV (External) 84 80 - 100 fL LABDE SCAN MCH (External) 28.6 26.0 - 34.0 Pg LABDE SCAN MCHC (External) 34.3 32.0 - 36.0 g/dL LABDE SCAN RDW (External) 14.0 11.5 - 15.5 % LABDE SCAN Platelet Count (External) 103(L) 140 - 440 thou/cu mm LABDE SCAN Blood specimen (specimen) 05/30/2017 9:32 AM CDT Narrative MARLENEE PFT - 09/09/2017 9:39 PM EMBALMER/FUNERAL DIRECTOR Verified by Sharon Martinez on 09/09/2017. Orlando Richey MD LAB - BLOOD ORDERABL ES Performing Organization Address [facility]/ZIP Co de Phone Number [facility] LABDE SCAN * (ABNORMAL) Basic metabolic panel (05/30/2017 9:32 AM CDT) Sodium (External) 131(L) 135 - 145 mmol/L LABDE SCAN Potassium (External) 4.7 3.5 - 5.0 mmol/L LABDE SCAN Chloride (External) 98 98 - 110 mmol/L LABDE SCAN CO2 (External) 23 21 - 31 mmol/L LABDE SCAN Anion Gap (External) 10 5 - 18 LABDE SCAN Glucose (External) 640(HH) 65 - 100 mg/dL LABDE SCAN Calcium (External) 10.1 8.5 - 10.5 mg/dL LABDE SCAN Urea Nitrogen (External) 20 8 - 25 mg/dL LABDE SCAN Creatinine (External) 1.63(H) 0.72 - 1.25 mg/dL LABDE SCAN BUN/Creatinine Ratio (External) 12 10 - 20 LABDE SCAN GFR Estimated (if ) (External) 51(L) >60 ml/min/1.7 3m2 LABDE SCAN GFR Estimated (External) 42(L) >60 ml/min/1.7 3m2 LABDE SCAN Blood specimen (specimen) 05/30/2017 9:32 AM CDT Narrative JESSICA PFT - 09/09/2017 9:39 PM EMBALMER/FUNERAL DIRECTOR Verified by Sharon Martinez on 09/09/2017. Orlando Richey MD LAB - BLOOD ORDERABL ES Performing Organization Address [facility]/ZIP Co de Phone Number JESSICA PFT LABDE SCAN * ALT (01/19/2017 9:30 AM CDT) ALT (External) 11 8 - 45 IU/L LABDE SCAN Blood specimen (specimen) 01/19/2017 9:30 AM CDT Yohana BINGHAMEZE PFT - 09/09/2017 9:44 PM EMBALMER/FUNERAL DIRECTOR Verified by Sharon Martinez on 09/09/2017. Patient Reported LAB - BLOOD ORDERABL ES Performing Organization Address [facility]/ZIP Co de Phone Number BREEZE PFT LABDE SCAN * (ABNORMAL) Lipid Profile (01/19/2017 9:30 AM CDT) Cholesterol (External) 102 100 - 199 mg/dL LABDE SCAN Triglycerides (External) 110 <150 mg/dL LABDE SCAN HDL Cholesterol (External) 35(L) >40 mg/dL LABDE SCAN LDL Cholesterol Calculated (External) 45 <=130 mg/dL LABDE SCAN Blood specimen (specimen) 01/19/2017 9:30 AM CDT [facility] MARLENEE PFT - 09/09/2017 9:44 PM EMBALMER/FUNERAL DIRECTOR Verified by Sharon Martinez on 09/09/2017. Patient Reported LAB - BLOOD ORDERABL ES Performing Organization Address [facility] Co de Phone Number BREEZE PFT LABDE SCAN * (ABNORMAL) Hemoglobin A1c (01/19/2017 9:30 AM CDT) Hemoglobin A1C (External) 12.4(H) <=6.4 % LABDE SCAN Blood specimen (specimen) 01/19/2017 9:30 AM CDT [facility] JESSICA PFT - 09/09/2017 9:44 PM EMBALMER/FUNERAL DIRECTOR Verified by Sharon Martinez on 09/09/2017. Patient Reported LAB - BLOOD ORDERABL ES Performing Organization Address [facility]/ZIP Co de Phone Number BREEZE PFT LABDE SCAN * (ABNORMAL) Basic metabolic panel (01/19/2017 9:30 AM CDT) Sodium (External) 138 135 - 145 mmol/L LABDE SCAN Potassium (External) 4.2 3.5 - 5.0 mmol/L LABDE SCAN Chloride (External) 105 98 - 110 mmol/L LABDE SCAN CO2 (External) 25 21 - 31 mmol/L LABDE SCAN Anion Gap (External) 8 5 - 18 LABDE SCAN Glucose (External) 304(H) 65 - 100 mg/dL LABDE SCAN Calcium (External) 10.0 8.5 - 10.5 mg/dL LABDE SCAN Urea Nitrogen (External) 19 8 - 25 mg/dL LABDE SCAN Creatinine (External) 1.53(H) 0.72 - 1.25 mg/dL LABDE SCAN BUN/Creatinine Ratio (External) 12 10 - 20 LABDE SCAN GFR Estimated (if ) (External) 55(L) >60 ml/min/1.7 3m2 LABDE SCAN GFR Estimated (External) 46(L) >60 ml/min/1.7 3m2 LABDE SCAN Blood specimen (specimen) 01/19/2017 9:30 AM CDT Narrative JESSICA PFT - 09/09/2017 9:44 PM EMBALMER/FUNERAL DIRECTOR Verified by Sharon Martinez on 09/09/2017. Patient Reported LAB - BLOOD ORDERABL ES JESSICA PFT LABDE SCAN documented in this encounter Visit Diagnoses Diagnosis Kidney replaced by transplant documented in this encounter Care Teams Visual C Developer Relationship Specialty Start Date End Date Momo Forbes MD PCP - General Family Practice 01/02/14 Joseph Quintana MD [address] [place] [address] [address] [place] [address] Assigned Nephrology Provider 03/29/21 09/10/22 documented as of this encounter
--- OUTSIDE RECORDS SUMMARY | 2023-08-31 13:13 | XMS_ITS | Encounter Summary ---
Author Name Unknown Organization [place] Address [address] [facility] [place] [address] Care Team Providers Care Junior Php Developer Name Role Phone Momo Forbes MD Primary Care Provider Joseph Quintana MD Unavailable [phone] Encounter Details Date Type Department Care Team (Late st Contact Info) Description 07/08/2020 External Order Results [facility] [address] [place] [address] Outside, Provider Social History Tobacco [...] Comments CBC WITH PLATELETS & DIFFERENTIAL Routine 07/08/2020 9:23 AM RN CLINICAL APPEALS TACROLIMUS BY TANDEM MASS SPECTROMETRY Routine 07/08/2020 9:23 AM RN CLINICAL APPEALS PROTEIN RANDOM URINE Routine 07/08/2020 9:23 AM RN CLINICAL APPEALS HEMOGLOBIN A1C Routine 07/08/2020 9:23 AM RN CLINICAL APPEALS HEMOGLOBIN A1C Routine 07/08/2020 9:23 AM RN CLINICAL APPEALS BASIC METABOLIC PANEL Routine 07/08/2020 9:23 AM RN CLINICAL APPEALS documented in this encounter Results * (ABNORMAL) Protein random urine with Creat Ratio (07/08/2020 9:23 AM RN CLINICAL APPEALS) Protein Random Urine (External) 73 mg/dL LABDE SCAN Creatinine Urine mg/dL (External) 65 mg/dL LABDE SCAN Protein Total Ur per Cr (External) 1.12(H) 0 - 0.19 LABDE SCAN Urine specimen (specimen) 07/08/2020 9:23 AM RN CLINICAL APPEALS Narrative BREEZE PFT - 07/11/2020 11:13 AM RN CLINICAL APPEALS Verified by Praful Huff on 07/11/2020. Patient Reported LAB - URINE ORDERABL ES BREEZE PFT LABDE SCAN * (ABNORMAL) Hemoglobin A1c (07/08/2020 9:23 AM RN CLINICAL APPEALS) Hemoglobin A1C (External) 12.3(H) 0 - 5.6 % LABDE SCAN Blood specimen (specimen) 07/08/2020 9:23 AM RN CLINICAL APPEALS Narrative BREEZE PFT - 07/11/2020 11:13 AM RN CLINICAL APPEALS Verified by Praful Huff on 07/11/2020. Patient Reported LAB - BLOOD ORDERABL ES BREEZE PFT LABDE SCAN * Tacrolimus level (07/08/2020 9:23 AM RN CLINICAL APPEALS) Tacrolimus(FK- 506) (External) 2.2 See scanned report ng/mL LABDE SCAN Blood specimen (specimen) 07/08/2020 9:23 AM RN CLINICAL APPEALS Narrative BREEZE PFT - 07/11/2020 11:13 AM RN CLINICAL APPEALS Verified by Praful Huff on 07/11/2020. Patient Reported LAB - BLOOD ORDERABL ES Performing Organization Address [facility]/ZIP Co de Phone Number BREEZE PFT LABDE SCAN * (ABNORMAL) Hemoglobin A1c (07/08/2020 9:23 AM RN CLINICAL APPEALS) Hemoglobin A1C (External) 12.3(H) 0 - 5.6 % LABDE SCAN Blood specimen (specimen) 07/08/2020 9:23 AM RN CLINICAL APPEALS Narrative BREEZE PFT - 07/09/2020 11:03 AM RN CLINICAL APPEALS Verified by Andrade Barajas on 07/09/2020. Patient Reported LAB - BLOOD ORDERABL ES Performing Organization Address [facility] de Phone Number BREEZE PFT LABDE SCAN * (ABNORMAL) Basic metabolic panel (07/08/2020 9:23 AM RN CLINICAL APPEALS) Calcium (External) 10.1 8.4 - 10.6 mg/dL LABDE SCAN Urea Nitrogen (External) 37(H) 7 - 30 mg/dL LABDE SCAN Creatinine (External) 1.7(H) 0.5 - 1.5 mg/dL LABDE SCAN Glucose (External) 407(HH) 60 - 115 mg/dL LABDE SCAN Sodium (External) 138 135 - 149 mmol/L LABDE SCAN Potassium (External) 5.2(H) 3.6 - 5.1 mmol/L LABDE SCAN Chloride (External) 103 96 - 114 mmol/L LABDE SCAN CO2 (External) 28 20 - 32 mmol/L LABDE SCAN Blood specimen (specimen) 07/08/2020 9:23 AM RN CLINICAL APPEALS Narrative BREEZE PFT - 07/09/2020 11:02 AM RN CLINICAL APPEALS Verified by Andrade Barajas on 07/09/2020. Patient Reported LAB - BLOOD ORDERABL ES Performing Organization Address [facility] Co de Phone Number BREEZE PFT LABDE SCAN * (ABNORMAL) CBC with platelets differential (07/08/2020 9:23 AM RN CLINICAL APPEALS) WBC Count (External) 4.32(L) 5.00 - 10.00 K/uL LABDE SCAN RBC Count (External) 5.46 4.32 - 5.72 M/uL LABDE SCAN Hemoglobin (External) 15.5 13.5 - 17.5 GM/DL LABDE SCAN Hematocrit (External) 47.9 38.8 - 50.0 % LABDE SCAN MCV (External) 88 81 - 95 FL LABDE SCAN MCH (External) 28 27 - 34 PG LABDE SCAN MCHC (External) 32 32 - 36 GM/DL LABDE SCAN Platelet Count (External) 101(L) 150 - 450 K/uL LABDE SCAN % Neutrophils (External) 68.5 50.0 - 70.0 % LABDE SCAN % Lymphocytes (External) 16.9(L) 25.0 - 45.0 % LABDE SCAN % Monocytes (External) 8.6 0.00 - 11.0 % LABDE SCAN % Eosinophils (External) 5.8 0.0 - 7.0 % LABDE SCAN % Basophils (External) 0.2 0.0 - 3.0 % LABDE SCAN % Immature Granulocytes (External) 0.0 % LABDE SCAN RDW (External) 14.3 11.5 - 15.3 % LABDE SCAN Absolute Neutrophils (External) 2.96 1.70 - 7.00 K/uL LABDE SCAN Absolute Lymphocytes (External) 0.73(L) 0.90 - 2.90 K/uL LABDE SCAN Absolute Monocytes (External) 0.37 0.30 - 0.90 K/uL LABDE SCAN Absolute Eosinophils (External) 0.25 0.00 - 0.50 K/uL LABDE SCAN Absolute Basophils (External) 0.01 0.00 - 0.20 K/uL LABDE SCAN Absolute Immature Granulocytes (External) 0.00 K/uL LABDE SCAN Blood specimen (specimen) 07/08/2020 9:23 AM RN CLINICAL APPEALS Narrative JESSICA PFT - 07/09/2020 10:52 AM RN CLINICAL APPEALS Verified by Praful Huff on 07/09/2020. Patient Reported LAB - BLOOD ORDERABL ES BREEZE PFT LABDE SCAN documented in this encounter Visit Diagnoses Not on filedocumented in this encounter Care Teams Junior Php Developer Relationship Specialty Start Date End Date Momo Forbes MD PCP - General Family Practice 01/02/14 Joseph Quintana MD [address] [place] [address] [place] [address] Assigned Nephrology Provider 03/29/21 09/10/22 documented as of this encounter
--- OUTSIDE RECORDS SUMMARY | 2023-08-31 13:13 | XMS_ITS | Encounter Summary ---
Author Name Unknown [facility] Address [address] [facility] [place] [address] Care Team Providers Care Fast Food Delivery Driver Name Role Phone Momo Forbes MD Primary Care Provider Joseph Quintana MD Unavailable [phone] Encounter Details Date Type Department Care Team (Late st Contact Info) Description 05/15/2018 External Order Results [facility] [address] [place] [address] Nurse, [facility] Social History Tobacco Use Types Packs/Day Years [...] Associated Diagnosis Comments BASIC METABOLIC PANEL Routine 05/15/2018 2:16 PM CDT CBC WITH PLATELETS Routine 05/15/2018 2: 16 PM CDT documented in this encounter Results * (ABNORMAL) CBC with platelets (05/15/2018 2:16 PM CDT) WBC Count (External) 5.9 4.5 - 11.0 thou/cu mm LABDE SCAN RBC Count (External) 5.75 4.30 - 5.90 mil/cu mm LABDE SCAN Hemoglobin (External) 16.6 13.5 - 17.5 g/dL LABDE SCAN Hematocrit (External) 48.4 37.0 - 53.0 % LABDE SCAN MCV (External) 84 80 - 100 fL LABDE SCAN MCH (External) 28.9 26.0 - 34.0 pg LABDE SCAN MCHC (External) 34.3 32.0 - 36.0 g/dL LABDE SCAN RDW (External) 14.5 11.5 - 15.5 % LABDE SCAN Platelet Count (External) 107(L) 140 - 440 thou/cu mm LABDE SCAN Blood specimen (specimen) 05/15/2018 2:16 PM CDT Narrative JESSICA PFT - 05/16/2018 12:16 PM CDT Verified by Gabby Nayak on 05/16/2018. Patient Reported LAB - BLOOD ORDERABL ES JESSICA PFT LABDE SCAN * (ABNORMAL) Basic metabolic panel (05/15/2018 2:16 PM CDT) Sodium (External) 137 135 - 145 mmol/L LABDE SCAN Potassium (External) 5.0 3.5 - 5.0 mmol/L LABDE SCAN Chloride (External) 106 98 - 110 mmol/L LABDE SCAN CO2 (External) 22 21 - 31 mmol/L LABDE SCAN Anion Gap (External) 9 5 - 18 LABDE SCAN Glucose (External) 342(H) 65 - 100 mg/dL LABDE SCAN Calcium (External) 10.4 8.5 - 10.5 mg/dL LABDE SCAN Urea Nitrogen (External) 27(H) 8 - 25 mg/dL LABDE SCAN Creatinine (External) 1.57(H) 0.72 - 1.25 mg/dL LABDE SCAN BUN/Creatinine Ratio (External) 17 10 - 20 LABDE SCAN GFR Estimated (if ) (External) 54(L) >60 ml/min/1.7 3m2 LABDE SCAN GFR Estimated (External) 44(L) >60 ml/min/1.7 3m2 LABDE SCAN Blood specimen (specimen) 05/15/2018 2:16 PM CDT Narrative BREEZE PFT - 05/16/2018 12:16 PM CDT Verified by Gabby Nayak on 05/16/2018. Patient Reported LAB - BLOOD ORDERABL ES BRETYLER PFT LABDE SCAN documented in this encounter Visit Diagnoses Not on filedocumented in this encounter Care Teams Fast Food Delivery Driver Relationship Specialty Start Date End Date Momo Forbes MD PCP - General Family Practice 01/02/14 Joseph Quintana MD [address] [place] [address] [address] [place] [address] Assigned Nephrology Provider 03/29/21 09/10/22 documented as of this encounter
--- OUTSIDE RECORDS SUMMARY | 2023-08-31 13:13 | XMS_ITS | Encounter Summary ---
Author Name Unknown Organization [place] Address [address] [facility] [place] [address] Care Team Providers Care Chief Of Pediatric Urology Name Role Phone Momo Forbes MD Primary Care Provider [phone] Joseph Quintana MD Unavailable [phone] Encounter Details Date Type Department Care Team (Late st Contact Info) Description 05/26/2020 External Order Results [facility] [address] [place] [address] Outside, Provider Social History Tobacco [...] Comments TACROLIMUS BY TANDEM MASS SPECTROMETRY Routine 05/26/2020 10:25 AM CDT BASIC METABOLIC PANEL Routine 05/26/2020 10:25 AM CDT documented in this encounter Results * (ABNORMAL) Basic metabolic panel (05/26/2020 10:25 AM CDT) Glucose (External) 303(H) 60 - 115 mg/dL LABDE SCAN Urea Nitrogen (External) 27 7 - 30 mg/dL LABDE SCAN Creatinine (External) 1.4 0.5 - 1.5 mg/dL LABDE SCAN Sodium (External) 139 135 - 149 mmol/L LABDE SCAN Potassium (External) 4.6 3.6 - 5.1 mmol/L LABDE SCAN Chloride (External) 103 96 - 114 mmol/L LABDE SCAN CO2 (External) 30 20 - 32 mmol/L LABDE SCAN Calcium (External) 9.9 8.4 - 10.6 mg/dL LABDE SCAN Blood specimen (specimen) 05/26/2020 10:25 AM CDT Narrative BREEZE PFT - 05/29/2020 4:03 PM CDT Verified by Gabby Nayak on 05/29/2020. Patient Reported LAB - BLOOD ORDERABL ES BREEZE PFT LABDE SCAN * Tacrolimus level (05/26/2020 10:25 AM CDT) Tacrolimus(FK-5 06) (External) 2.5 See Image ng/mL LABDE SCAN Blood specimen (specimen) 05/26/2020 10:25 AM CDT Narrative BREEZE PFT - 05/29/2020 1:33 PM CDT Verified by Ruperto Pepper on 05/29/2020. Patient Reported LAB - BLOOD ORDERABL ES BREEZE PFT LABDE SCAN documented in this encounter Visit Diagnoses Not on filedocumented in this encounter Care Teams Chief Of Pediatric Urology Relationship Specialty Start Date End Date Momo Forbes MD PCP - General Family Practice 01/02/14 Joseph Quintana MD [address] [facility] [address] [facility] [address] [place] [address] Assigned Nephrology Provider 03/29/21 09/10/22 documented as of this encounter
--- OUTSIDE RECORDS SUMMARY | 2023-08-31 13:13 | XMS_ITS | Encounter Summary ---
Author Name Unknown [facility] Address [address] [facility] [place] [address] Care Team Providers Care Deputy Coroner Name Role Phone Momo Forbes MD Primary Care Provider [phone] Joseph Quintana MD Unavailable [phone] Encounter Details Date Type Department Care Team (Late st Contact Info) Description 09/04/2018 External Order Results [facility] [address] [place] [address] Nurse, [facility] Social History Tobacco Use Types Packs/Day [...] Comments CBC WITH PLATELETS & DIFFERENTIAL Routine 09/04/2018 2:50 PM TOLL PATROLMAN BASIC METABOLIC PANEL Routine 09/04/2018 2:50 PM TOLL PATROLMAN PROTEIN RANDOM URINE Routine 09/04/2018 2:49 PM TOLL PATROLMAN documented in this encounter Results * (ABNORMAL) CBC with platelets differential (09/04/2018 2:50 PM TOLL PATROLMAN) WBC Count (External) 3.8(L) 4.5 - 11.0 thou/cu mm LABDE SCAN RBC Count (External) 5.49 4.30 - 5.90 mil/cu mm LABDE SCAN Hemoglobin (External) 15.9 13.5 - 17.5 g/dL LABDE SCAN Hematocrit (External) 47.2 37.0 - 53.0 % LABDE SCAN MCV (External) 86 80 - 100 fL LABDE SCAN MCH (External) 29.0 26.0 - 34.0 pg LABDE SCAN MCHC (External) 33.7 32.0 - 36.0 g/dL LABDE SCAN RDW (External) 14.0 11.5 - 15.5 % LABDE SCAN Platelet Count (External) 78(L) 140 - 440 thou/cu mm LABDE SCAN % Neutrophils (External) 57.8 % LABDE SCAN % Lymphocytes (External) 25.8 % LABDE SCAN % Monocytes (External) 15.1 % LABDE SCAN % Eosinophils (External) 1.0 % LABDE SCAN % Basophils (External) 0.3 % LABDE SCAN % Immature Granulocytes (External) 0.0 % LABDE SCAN Absolute Neutrophils (External) 2.2 1.7 - 7.0 thou/cu mm LABDE SCAN Absolute Lymphocytes (External) 1.0 0.9 - 2.9 thou/cu mm LABDE SCAN Absolute Monocytes (External) 0.6 <0.9 thou/cu mm LABDE SCAN Absolute Eosinophils (External) 0.0 <0.5 thou/cu mm LABDE SCAN Absolute Basophils (External) 0.0 <0.3 thou/cu mm LABDE SCAN Absolute Immature Granulocytes (External) 0.0 <0.3 thou/cu mm LABDE SCAN Blood specimen (specimen) 09/04/2018 2:50 PM TOLL PATROLMAN Narrative JESSICA THIBODEAUX - 09/06/2018 9:13 AM TOLL PATROLMAN Verified by Cassie Florian on 09/06/2018. Patient Reported LAB - BLOOD ORDERABL ES JESSICA PFT LABDE SCAN * (ABNORMAL) Basic metabolic panel (09/04/2018 2:50 PM TOLL PATROLMAN) Sodium (External) 136 135 - 145 mmol/L LABDE SCAN Potassium (External) 4.3 3.5 - 5.0 mmol/L LABDE SCAN Chloride (External) 101 98 - 110 mmol/L LABDE SCAN CO2 (External) 26 21 - 31 mmol/L LABDE SCAN Anion Gap (External) 9 5 - 18 LABDE SCAN Glucose (External) 334(H) 65 - 100 mg/dL LABDE SCAN Calcium (External) 9.9 8.5 - 10.5 mg/dL LABDE SCAN Urea Nitrogen (External) 16 8 - 25 mg/dL LABDE SCAN Creatinine (External) 1.69(H) 0.72 - 1.25 mg/dL LABDE SCAN BUN/Creatinine Ratio (External) 9(L) 10 - 20 LABDE SCAN GFR Estimated (if ) (External) 49(L) >60 ml/min/1.7 3m2 LABDE SCAN GFR Estimated (External) 41(L) >60 ml/min/1.7 3m2 LABDE SCAN Blood specimen (specimen) 09/04/2018 2:50 PM TOLL PATROLMAN Narrative JESSICA PFT - 09/06/2018 9:13 AM TOLL PATROLMAN Verified by Cassie Florian on 09/06/2018. Patient Reported LAB - [facility]LOOD [facility]ABL ES [facility] LABDE SCAN * (ABNORMAL) Protein random urine with Creat Ratio (09/04/2018 2:49 PM TOLL PATROLMAN) Protein Random Urine (External) 72(H) 1 - 14 mg/dL LABDE SCAN Creatinine Urine mg/dL (External) 104.0 63.0 - 166.0 mg/dL LABDE SCAN Protein Total Ur per Cr (External) 0.7(H) <0.2 LABDE SCAN Urine specimen (specimen) 09/04/2018 2:49 PM TOLL PATROLMAN Narrative JESSICA PFT - 09/06/2018 9:13 AM TOLL PATROLMAN Verified by Cassie Florian on 09/06/2018. Patient Reported LAB - URINE ORDERABL ES BREEZE PFT LABDE SCAN documented in this encounter Visit Diagnoses Not on filedocumented in this encounter Care Teams Deputy Coroner Relationship Specialty Start Date End Date Momo Forbes MD PCP - General Family Practice 01/02/14 Joseph Quintana MD [address] [place] [address] Assigned Nephrology Provider 03/29/21 09/10/22 documented as of this encounter
--- OUTSIDE RECORDS SUMMARY | 2023-08-31 13:13 | XMS_ITS | Encounter Summary ---
Author Name Unknown Organization [place] Address [address] [facility] [place] [address] Care Team Providers Care Lace Sewer Name Role Phone Momo Forbes MD Primary Care Provider Joseph Quintana MD Unavailable [phone] Encounter Details Date Type Department Care Team (Late st Contact Info) Description 02/02/2021 External Order Results [facility] [address] [place] [address] Outside, Provider Social History Tobacco Use [...] Procedure Name Priority Date/Time Associated Diagnosis Comments COVID-19 VIRUS (CORONAVIRUS) BY PCR (EXTERNAL RESULT) Routine 02/02/2021 10:54 AM CDT documented in this encounter Results * COVID-19 Virus (Coronavirus) by PCR (External Result) (02/02/2021 10:54 AM CDT) COVID-19 Virus by PCR (External Result) Negative Negative COVID-19 EXTERNAL RESULTS 02/02/2021 10:5 4 AM CDT Narrative JESSICA PFT - 02/04/2021 2:10 PM CDT Verified by Cassie Florian on 02/04/2021. Performed by: [address] ??[id number] Patient Reported LABORATORY ZACHERYTYLER PFT COVID-19 EXTERNAL RESULTS COVID-19 External Result Scanned into Patient Record by CSR Refer to Result Comment/Narrative for exact performing laboratory [address] documented in this encounter Visit Diagnoses Not on filedocumented in this encounter Care Teams Lace Sewer Relationship Specialty Start Date End Date Momo Forbes MD PCP - General Family Practice 01/02/14 Joseph Quintana MD [address] [facility] [address] [facility] [address] [place] [address] Assigned Nephrology Provider 03/29/21 09/10/22 documented as of this encounter
--- OUTSIDE RECORDS SUMMARY | 2023-08-31 13:13 | XMS_ITS | Encounter Summary ---
Author Name Unknown Organization [place] Address [address] [facility] [place] [address] Care Team Providers Care Optical Glass Wet Inspector Name Role Phone Momo Forbes MD Primary Care Provider Joseph Quintana MD Unavailable [phone] Encounter Details Date Type Department Care Team (Late st Contact Info) Description 08/08/2020 External Order Results [facility] [address] [place] [address] Outside, Provider Social History Tobacco [...] Date/Time Associated Diagnosis Comments HEMOGLOBIN A1C Routine 08/08/2020 11:43 AM RN CLINICAL TACROLIMUS BY TANDEM MASS SPECTROMETRY Routine 08/08/2020 11:34 AM RN CLINICAL LIPID PROFILE Routine 08/08/2020 11:34 AM RN CLINICAL ALT Routine 08/08/2020 11:34 AM RN CLINICAL BASIC METABOLIC PANEL Routine 08/08/2020 11:34 AM RN CLINICAL documented in this encounter Results * (ABNORMAL) Hemoglobin A1c (08/08/2020 11:43 AM RN CLINICAL) Hemoglobin A1C (External) 10.2(H) <=6.9 % LABDE SCAN Blood specimen (specimen) 08/08/2020 11:43 AM RN CLINICAL Narrative BREEZE PFT - 08/11/2020 1:28 PM RN CLINICAL Verified by Praful Huff on 08/11/2020. Patient Reported LAB - BLOOD ORDERABL ES BREEZE PFT LABDE SCAN * Tacrolimus level (08/08/2020 11:34 AM RN CLINICAL) Tacrolimus(FK-5 06) (External) 11.7 See scan ng/mL LABDE SCAN Blood specimen (specimen) 08/08/2020 11:34 AM RN CLINICAL Narrative BREEZE PFT - 08/11/2020 1:28 PM RN CLINICAL Verified by Praful Huff on 08/11/2020. Patient Reported LAB - BLOOD ORDERABL ES Performing Organization Address City/[facility]/ZIP Co de Phone Number BREEZE PFT LABDE SCAN * (ABNORMAL) Lipid Profile (08/08/2020 11:34 AM RN CLINICAL) Cholesterol (External) 79(L) 90 - 200 MG/DL LABDE SCAN Triglycerides (External) 86 40 - 197 MG/DL LABDE SCAN LDL-Cholesterol (External) 29 <100 mg/dL LABDE SCAN HDL Cholesterol (External) 33(L) >=40 mg/dL LABDE SCAN Blood specimen (specimen) 08/08/2020 11:34 AM RN CLINICAL Narrative BREEZE PFT - 08/11/2020 1:28 PM RN CLINICAL Verified by Praful Huff on 08/11/2020. Patient Reported LAB - BLOOD ORDERABL ES BREEZE PFT LABDE SCAN * ALT (08/08/2020 11:34 AM RN CLINICAL) ALT (External) 8 4 - 50 U/L LABDE SCAN Blood specimen (specimen) 08/08/2020 11:34 AM RN CLINICAL Narrative BREEZE PFT - 08/11/2020 1:28 PM RN CLINICAL Verified by Praful Huff on 08/11/2020. Patient Reported LAB - BLOOD ORDERABL ES Performing Organization Address City/[facility]/ZIP Co de Phone Number BREEZE PFT LABDE SCAN * (ABNORMAL) Basic metabolic panel (08/08/2020 11:34 AM RN CLINICAL) Glucose (External) 119(H) 60 - 115 mg/dL LABDE SCAN Urea Nitrogen (External) 25 7 - 30 mg/dL LABDE SCAN Creatinine (External) 1.5 0.5 - 1.5 mg/dL LABDE SCAN Sodium (External) 142 135 - 149 mmol/L LABDE SCAN Potassium (External) 4.2 3.6 - 5.1 mmol/L LABDE SCAN Chloride (External) 111 96 - 114 mmol/L LABDE SCAN CO2 (External) 27 20 - 32 mmol/L LABDE SCAN Calcium (External) 9.8 8.4 - 10.6 mg/dL LABDE SCAN Blood specimen (specimen) 08/08/2020 11:34 AM RN CLINICAL Narrative BREEZE PFT - 08/11/2020 1:28 PM RN CLINICAL Verified by Praful Huff on 08/11/2020. Patient Reported LAB - BLOOD ORDERABL ES BREEZE PFT LABDE SCAN documented in this encounter Visit Diagnoses Not on filedocumented in this encounter Care Teams Optical Glass Wet Inspector Relationship Specialty Start Date End Date Momo Forbes MD PCP - General Family Practice 01/02/14 Joseph Quintana MD [address] [place] [address] [facility] [address] [place] [address] Assigned Nephrology Provider 03/29/21 09/10/22 documented as of this encounter
--- OUTSIDE RECORDS SUMMARY | 2023-08-31 13:13 | XMS_ITS | Encounter Summary ---
Author Name Unknown [facility] Address [address] [place] [address] Care Team Providers Care Sales Operations Analyst Name Role Phone Momo Forbes MD Primary Care Provider [phone] Joseph Quintana MD Unavailable [phone] Encounter Details Date Type Department Care Team (Late st Contact Info) Description 04/30/2021 External Order Results [facility] [address] [place] [address] Outside, Provider Social History Tobacco Use Types [...] Comments CBC WITH PLATELETS & DIFFERENTIAL Routine 04/30/2021 11:20 AM CDT TACROLIMUS BY TANDEM MASS SPECTROMETRY Routine 04/30/2021 11:20 AM CDT documented in this encounter Results * (ABNORMAL) Tacrolimus level (04/30/2021 11:20 AM CDT) Tacrolimus(FK- 506) (External) 3.9(L) 5.0 - 15.0 ng/mL NON-INTERFACED (ONBASE SCANS) Blood 04/30/2021 11:2 0 AM CDT Narrative JESSICA PFT - 05/05/2021 10:14 AM CDT Verified by Andrade Barajas on 05/05/2021. Patient Reported LAB - BLOOD ORDERABL ES JESSICA PFT NON-INTERFACED (ONBASE SCANS) * (ABNORMAL) CBC with Platelets & Differential (04/30/2021 11:20 AM CDT) WBC Count (External) 4.82(L) 5.00 - 10.00 K/uL NON-INTERFACE D (ONBASE SCANS) RBC Count (External) 4.72 4.32 - 5.72 M/uL NON-INTERFACE D (ONBASE SCANS) Hemoglobin (External) 13.1(L) 13.5 - 17.5 GM/DL NON-INTERFACE D (ONBASE SCANS) Hematocrit (External) 41.3 38.8 - 50.0 % NON-INTERFACE D (ONBASE SCANS) MCV (External) 88 81 - 95 FL NON- INTERFACE D (ONBASE SCANS) MCH (External) 28 27 - 34 PG NON- INTERFACE D (ONBASE SCANS) MCHC (External) 32 32 - 36 GM/DL NON-INTERFACE D (ONBASE SCANS) Platelet Count (External) 132(L) 150 - 450 K/UL NON-INTERFACE D (ONBASE SCANS) % Neutrophils (External) 70.9(H) 50.0 - 70.0 % NON-INTERFACE D (ONBASE SCANS) % Lymphocytes (External) 16.2(L) 25.0 - 45.0 % NON-INTERFACE D (ONBASE SCANS) % Monocytes (External) 7.5 0.00 - 11.0 % NON-INTERFACE D (ONBASE SCANS) % Eosinophils (External) 5.2 0.0 - 7.0 % NON-INTERFACE D (ONBASE SCANS) % Basophils (External) 0.2 0.0 - 3.0 % NON-INTERFACE D (ONBASE SCANS) % Immature Granulocytes (External) 0.0 % NON-INTERFACE D (ONBASE SCANS) RDW (External) 15.3 11.5 - 15.3 % NON-INTERFACE D (ONBASE SCANS) Absolute Neutrophils (External) 3.42 1.70 - 7.00 K/uL NON-INTERFACE D (ONBASE SCANS) Absolute Lymphocytes (External) 0.78(L) 0.90 - 2.90 K/uL NON-INTERFACE D (ONBASE SCANS) Absolute Monocytes (External) 0.36 0.30 - 0.90 % NON-INTERFACE D (ONBASE SCANS) Absolute Eosinophils (External) 0.25 0.00 - 0.50 K/uL NON-INTERFACE D (ONBASE SCANS) Absolute Basophils (External) 0.01 0.00 - 0.20 K/uL NON-INTERFACE D (ONBASE SCANS) Absolute Immature Granulocytes (External) 0.00 K/uL NON-INTERFACE D (ONBASE SCANS) Blood 04/30/2021 11:2 0 AM CDT Narrative JESSICA PFT - 05/03/2021 8:36 AM CDT Verified by Praful Huff on 05/03/2021. Patient Reported LAB - BLOOD ORDERABL ES JESSICA PFT NON-INTERFACED (ONBASE SCANS) documented in this encounter Visit Diagnoses Not on filedocumented in this encounter Care Teams Sales Operations Analyst Relationship Specialty Start Date End Date Momo Forbes MD PCP - General Family Practice 01/02/14 Joseph Quintana MD [address] [place] [address] Assigned Nephrology Provider 03/29/21 09/10/22 documented as of this encounter
--- OUTSIDE RECORDS SUMMARY | 2023-08-31 13:13 | XMS_ITS | Encounter Summary ---
Author Name Unknown Organization [place] Address [address] [facility] [place] [address] Care Team Providers Care Re Dye Hand Name Role Phone Momo Forbes MD Primary Care Provider Joseph Quintana MD Unavailable [phone] Encounter Details Date Type Department Care Team (Late st Contact Info) Description 01/27/2021 External Order Results [facility] [address] [place] [address] Outside, Provider Social History Tobacco [...] Comments CBC WITH PLATELETS & DIFFERENTIAL Routine 01/27/2021 11:45 AM CDT TACROLIMUS BY TANDEM MASS SPECTROMETRY Routine 01/27/2021 11:45 AM CDT HEMOGLOBIN A1C Routine 01/27/2021 11:45 AM CDT BASIC METABOLIC PANEL Routine 01/27/2021 11:45 AM CDT documented in this encounter Results * (ABNORMAL) Hemoglobin A1c (01/27/2021 11:45 AM CDT) Hemoglobin A1C (External) 7.4(H) <=6.9 % LABDE SCAN Blood 01/27/2021 11:4 5 AM CDT Narrative BREEZE PFT - 03/06/2021 2:31 PM CDT Verified by Cassie Florian on 03/06/2021. Patient Reported LAB - BLOOD ORDERABL ES BREEZE PFT LABDE SCAN * Tacrolimus level (01/27/2021 11:45 AM CDT) Tacrolimus(FK-5 06) (External) 7.3 5.0 - 15.0 ng/mL LABDE SCAN Blood 01/27/2021 11:4 5 AM CDT Narrative BREEZE PFT - 01/30/2021 7:07 AM CDT Verified by Ruperto Pepper on 01/30/2021. Patient Reported LAB - BLOOD ORDERABL ES BREEZE PFT LABDE SCAN * (ABNORMAL) Basic metabolic panel (01/27/2021 11:45 AM CDT) Glucose (External) 156(H) 60 - 115 mg/dL LABDE SCAN Urea Nitrogen (External) 20 7 - 30 mg/dL LABDE SCAN Creatinine (External) 1.3 0.5 - 1.5 mg/dL LABDE SCAN GFR Estimated (External) Patient height/weight data not available ml/min/1. 73m2 LABDE SCAN Sodium (External) 141 135 - 149 mmol/L LABDE SCAN Potassium (External) 4.5 3.6 - 5.1 mmol/L LABDE SCAN Chloride (External) 107 96 - 114 mmol/L LABDE SCAN CO2 (External) 27 20 - 32 mmol/L LABDE SCAN Calcium (External) 9.5 8.4 - 10.6 mg/dL LABDE SCAN Blood 01/27/2021 11:4 5 AM CDT Narrative JESSICA PFT - 01/28/2021 10:21 AM CDT Verified by Ruperto Pepper on 01/28/2021. Patient Reported LAB - BLOOD ORDERABL ES JESSICA PFT LABDE SCAN * (ABNORMAL) CBC with platelets differential (01/27/2021 11:45 AM CDT) WBC Count (External) 5.08 5.00 - 10.00 K/UL LABDE SCAN RBC Count (External) 5.12 4.32-5.72. M/UL LABDE SCAN Hemoglobin (External) 14.2 13.5 - 17.5 GM/DL LABDE SCAN Hematocrit (External) 43.9 38.8 - 50.0 % LABDE SCAN MCV (External) 86 81 - 95 FL LABDE SCAN MCH (External) 28 27 - 34 PG LABDE SCAN MCHC (External) 32 32 - 36 GM/DL LABDE SCAN Platelet Count (External) 115(L) 150 - 450 K/UL LABDE SCAN % Neutrophils (External) 69.5 50.0 - 70.0 % LABDE SCAN % Lymphocytes (External) 18.1(L) 25.0 - 45.0 % LABDE SCAN % Monocytes (External) 8.1 0.00 - 11.0 % LABDE SCAN % Eosinophils (External) 4.1 0.0 - 7.0 % LABDE SCAN % Basophils (External) 0.2 0.0 - 3.0 % LABDE SCAN % Immature Granulocytes (External) 0.0 % LABDE SCAN RDW (External) 15.3 11.5 - 15.3 % LABDE SCAN Absolute Neutrophils (External) 3.53 1.70 - 7.00 K/UL LABDE SCAN Absolute Lymphocytes (External) 0.92 0.90 - 2.90 K/UL LABDE SCAN Absolute Monocytes (External) 0.41 0.30 - 0.90 K/UL LABDE SCAN Absolute Eosinophils (External) 0.21 0.00 - 0.50 K/UL LABDE SCAN Absolute Basophils (External) 0.01 0.00 - 0.20 K/UL LABDE SCAN Absolute Immature Granulocytes (External) 0.00 K/uL LABDE SCAN Blood 01/27/2021 11:4 5 AM CDT Narrative JESSICA PFT - 01/28/2021 10:15 AM CDT Verified by Praful Huff on 01/28/2021. Patient Reported LAB - BLOOD ORDERABL ES JESSICA PFT LABDE SCAN documented in this encounter Visit Diagnoses Not on filedocumented in this encounter Care Teams Re Dye Hand Relationship Specialty Start Date End Date Momo Forbes MD PCP - General Family Practice 01/02/14 Joseph Quintana MD [address] [place] [address] Assigned Nephrology Provider 03/29/21 09/10/22 documented as of this encounter
--- OUTSIDE RECORDS SUMMARY | 2023-08-31 13:13 | XMS_ITS | Encounter Summary ---
Author Name Unknown Organization [place] Address [address] [place] [address]. [place] [address] Care Team Providers Care Draw Furnace Tender Name Role Phone Momo Forbes MD Primary Care Provider Joseph Quintana MD Unavailable [phone] Encounter Details Date Type Department Care Team (Late st Contact Info) Description 01/07/2021 External Order Results [facility] [address] [place] [phone] Outside, Provider Social History Tobacco Use [...] Procedure Name Priority Date/Time Associated Diagnosis Comments ALT Routine 01/07/2021 9:30 AM CDT BASIC METABOLIC PANEL Routine 01/07/2021 9:30 AM CDT documented in this encounter Results * ALT (01/07/2021 9:30 AM CDT) ALT (External) 10 4 - 50 U/L LABDE SCAN Blood 01/07/2021 9:30 AM CDT Narrative BREEZE PFT - 01/12/2021 10:34 AM CDT Verified by Cassie Florian on 01/12/2021. Patient Reported LAB - BLOOD ORDERABL ES BREEZE PFT LABDE SCAN * (ABNORMAL) Basic metabolic panel (01/07/2021 9:30 AM CDT) Glucose (External) 172(H) 60 - 115 mg/dL LABDE SCAN Urea Nitrogen (External) 23 7 - 30 mg/dl LABDE SCAN Creatinine (External) 1.3 0.5 - 1.5 mg/dL LABDE SCAN Sodium (External) 143 135 - 149 mmol/L LABDE SCAN Potassium (External) 4.0 3.6 - 5.1 mmol/L LABDE SCAN Chloride (External) 106 96 - 114 mmol/L LABDE SCAN CO2 (External) 24 20 - 32 mmol/L LABDE SCAN Calcium (External) 9.7 8.4 - 10.6 mg/dL LABDE SCAN Blood 01/07/2021 9:30 AM CDT Narrative BREEZE PFT - 01/12/2021 10:34 AM CDT Verified by Cassie Florian on 01/12/2021. Patient Reported LAB - BLOOD ORDERABL ES BREEZE PFT LABDE SCAN documented in this encounter Visit Diagnoses Not on filedocumented in this encounter Care Teams Draw Furnace Tender Relationship Specialty Start Date End Date Momo Forbes MD PCP - General Family Practice 01/02/14 Joseph Quintana MD [address] [place] [address] Assigned Nephrology Provider 03/29/21 09/10/22 documented as of this encounter
--- OUTSIDE RECORDS SUMMARY | 2023-08-31 13:14 | XMS_ITS | Encounter Summary ---
Author Name Unknown Organization [place] Address [address] [place] [address]. [place] [address] Care Team Providers Care Fire Hazard Inspector Name Role Phone Ingrid Santana RN Unavailable Unavailable Momo Forbes MD Primary Care Provider Joseph Quintana MD Unavailable [phone] Encounter Details Date Type Department Care Team (Late st Contact Info) Description 05/27/2014 External Order Results [facility] [address] [place] [phone] Nurse, [facility] Social History Tobacco Use Types Packs/Day Years [...] Associated Diagnosis Comments EXTERNAL LAB RESULTS Routine 05/24/2014 8:11 AM CDT documented in this encounter Results * (ABNORMAL) TXP External Lab Result (05/24/2014 8:11 AM CDT) Sodium (External) 142 135 - 145 mmol/L LABDE SCAN Potassium (External) 4.7 3.5 - 5.0 mmol/L LABDE SCAN Chloride (External) 109(H) 98 - 107 mmol/L LABDE SCAN CO2 (External) 25 21 - 31 mmol/L LABDE SCAN Anion Gap (External) 8 5 - 18 LABDE SCAN Glucose (External) 183(H) 65 - 100 mg/dL LABDE SCAN Calcium (External) 10.6(H) 8.5 - 10.5 mg/dL LABDE SCAN Urea Nitrogen (External) 24 8 - 25 mg/dL LABDE SCAN Creatinine (External) 1.38(H) 0.72 - 1.25 mg/dL LABDE SCAN BUN/Creatinine Ratio (External) 17 10 - 20 LABDE SCAN GFR Estimated (if ) (External) >60 >60 ml/min/1.7 3m2 LABDE SCAN GFR Estimated (External) 52(L) >60 ml/min/1.7 3m2 LABDE SCAN WBC Count (External) 3.1(L) 4.5 - 11.0 thou/cu mm LABDE SCAN RBC Count (External) 4.51 4.30 - 5.90 mil/cu mm LABDE SCAN Hemoglobin (External) 12.7(L) 13.5 - 17.5 g/dL LABDE SCAN Hematocrit (External) 39.3 37.0 - 53.0 % LABDE SCAN MCV (External) 87 80 - 100 fL LABDE SCAN MCH (External) 28.2 26.0 - 34.0 pg LABDE SCAN MCHC (External) 32.3 32.0 - 36.0 g/dL LABDE SCAN RDW (External) 14.9 11.5 - 15.5 % LABDE SCAN Platelet Count (External) 123(L) 140 - 440 thou/cu mm LABDE SCAN MPV (External) 11.6(H) 6.5 - 11.0 fL LABDE SCAN 05/24/2014 8:11 AM CDT Narrative JESSICA PFT - 05/27/2014 2:16 PM CDT Verified by Jessica Major on 05/27/2014. Patient Reported LABORATORY BREEZE PFT LABDE SCAN documented in this encounter Visit Diagnoses Not on filedocumented in this encounter Care Teams Fire Hazard Inspector Relationship Specialty Start Date End Date Momo Forbes MD PCP - General Family Practice 01/02/14 Ingrid Santana, RN Registered Nurse Transplant 02/10/12 10/01/15 Joseph Quintana MD [address] [address] Assigned Nephrology Provider 03/29/21 09/10/22 documented as of this encounter
--- OUTSIDE RECORDS SUMMARY | 2023-08-31 13:14 | XMS_ITS | Encounter Summary ---
Author Name Unknown Organization [place] Address [address] [place] [address]. [place] [address] Care Team Providers Care Railway Signal Technician Name Role Phone Ingrid Santana RN Unavailable Unavailable Momo Forbes MD Primary Care Provider Joseph Quintana MD Unavailable [phone] Encounter Details Date Type Department Care Team (Late st Contact Info) Description 07/25/2014 External Order Results [facility] [address] [place] [phone] Nurse, [facility] Social History Tobacco Use Types Packs/Day [...] Associated Diagnosis Comments EXTERNAL LAB RESULTS Routine 07/22/2014 8:22 AM SEEDLING PULLER documented in this encounter Results * (ABNORMAL) TXP External Lab Result (07/22/2014 8:22 AM SEEDLING PULLER) Sodium (External) 140 135 - 145 mmol/L LABDE SCAN Potassium (External) 4.6 3.5 - 5.0 mmol/L LABDE SCAN Chloride (External) 107 98 - 110 mmol/L LABDE SCAN CO2 (External) 25 21 - 31 mmol/L LABDE SCAN Anion Gap (External) 8 5 - 18 LABDE SCAN Glucose (External) 191(H) 65 - 100 mg/dL LABDE SCAN Calcium (External) 10.1 8.5 - 10.5 mg/dL LABDE SCAN Urea Nitrogen (External) 25 8 - 25 mg/dL LABDE SCAN Creatinine (External) 1.63(H) 0.72 - 1.25 mg/dL LABDE SCAN BUN/Creatinine Ratio (External) 15 10 - 20 LABDE SCAN GFR Estimated (if ) (External) 52(L) >60 ml/min/1.7 3m2 LABDE SCAN GFR Estimated (External) 43(L) >60 ml/min/1.7 3m2 LABDE SCAN WBC Count (External) 4.6 4.5 - 11.0 thou/cu mm LABDE SCAN RBC Count (External) 4.82 4.30 - 5.90 mil/cu mm LABDE SCAN Hemoglobin (External) 13.7 13.5 - 17.5 g/dL LABDE SCAN Hematocrit (External) 42.2 37.0 - 53.0 % LABDE SCAN MCV (External) 88 80 - 100 fL LABDE SCAN MCH (External) 28.4 26.0 - 34.0 pg LABDE SCAN MCHC (External) 32.5 32.0 - 36.0 g/dL LABDE SCAN RDW (External) 14.7 11.5 - 15.5 % LABDE SCAN Platelet Count (External) 118(L) 140 - 440 thou/cu mm LABDE SCAN MPV (External) 10.7 6.5 - 11.0 fL LABDE SCAN 07/22/2014 8:22 AM SEEDLING PULLER Narrative JESSICA PFT - 07/25/2014 6:19 AM SEEDLING PULLER Verified by Janee Alexis on 07/25/2014. Patient Reported LABORATORY JESSICA PFT LABDE SCAN documented in this encounter Visit Diagnoses Not on filedocumented in this encounter Care Teams Railway Signal Technician Relationship Specialty Start Date End Date Moom Forbes MD PCP - General Family Practice 01/02/14 Ingrid Santana, RN Registered Nurse Transplant 02/10/12 10/01/15 Joseph Quintana MD [address] [place] [address] Assigned Nephrology Provider 03/29/21 09/10/22 documented as of this encounter
--- OUTSIDE RECORDS SUMMARY | 2023-08-31 13:14 | XMS_ITS | Encounter Summary ---
Author Name Unknown Organization [place] Address [address] [place] [address]. [place] [address] Care Team Providers Care Restaurant Bartender Name Role Phone Ingrid Santana RN Unavailable Unavailable Momo Forbes MD Primary Care Provider Joseph Quintana MD Unavailable [phone] Encounter Details Date Type Department Care Team (Late st Contact Info) Description 07/10/2014 External Order Results [facility] [address] [address] [place] [phone] Nurse, [facility] Social History Tobacco Use Types Packs/Day Years [...] Associated Diagnosis Comments EXTERNAL LAB RESULTS Routine 07/08/2014 8:17 AM BLISTER PACK OPERATOR documented in this encounter Results * (ABNORMAL) TXP External Lab Result (07/08/2014 8:17 AM BLISTER PACK OPERATOR) Sodium (External) 138 135 - 145 mmol/L LABDE SCAN Potassium (External) 4.8 3.5 - 5.0 mmol/L LABDE SCAN Chloride (External) 109(H) 98 - 107 mmol/L LABDE SCAN CO2 (External) 24 21 - 31 mmol/L LABDE SCAN Anion Gap (External) 5 5 - 18 LABDE SCAN Glucose (External) 190(H) 65 - 100 mg/dL LABDE SCAN Calcium (External) 10.0 8.5 - 10.5 mg/dL LABDE SCAN Urea Nitrogen (External) 23 8 - 25 mg/dL LABDE SCAN Creatinine (External) 1.40(H) 0.72 - 1.25 mg/dL LABDE SCAN BUN/Creatinine Ratio (External) 16 10 - 20 LABDE SCAN GFR Estimated (if ) (External) >60 >60 ml/min/1.7 3m2 LABDE SCAN GFR Estimated (External) 51(L) >60 ml/min/1.7 3m2 LABDE SCAN WBC Count (External) 4.5 4.5 - 11.0 thou/cu mm LABDE SCAN RBC Count (External) 4.79 4.30 - 5.90 mil/cu mm LABDE SCAN Hemoglobin (External) 13.5 13.5 - 17.5 g/dL LABDE SCAN Hematocrit (External) 41.2 37.0 - 53.0 % LABDE SCAN MCV (External) 86 80 - 100 fL LABDE SCAN MCH (External) 28.2 26.0 - 34.0 pg LABDE SCAN MCHC (External) 32.8 32.0 - 36.0 g/dL LABDE SCAN RDW (External) 14.8 11.5 - 15.5 % LABDE SCAN Platelet Count (External) 103(L) 140 - 440 thou/cu mm LABDE SCAN MPV (External) 10.7 6.5 - 11.0 fL LABDE SCAN 07/08/2014 8:17 AM BLISTER PACK OPERATOR Narrative JESSICA PFT - 07/10/2014 6:20 AM BLISTER PACK OPERATOR Verified by Janee Alexis on 07/10/2014. Patient Reported LABORATORY JESSICA PFT LABDE SCAN documented in this encounter Visit Diagnoses Not on filedocumented in this encounter Care Teams Restaurant Bartender Relationship Specialty Start Date End Date Momo Forbes MD PCP - General Family Practice 01/02/14 Ingrid Santana, RN Registered Nurse Transplant 02/10/12 10/01/15 Joseph Quintana MD [address] [place] [address] Assigned Nephrology Provider 03/29/21 09/10/22 documented as of this encounter
--- OUTSIDE RECORDS SUMMARY | 2023-08-31 13:14 | XMS_ITS | Encounter Summary ---
Author Name Unknown Organization [place] Address [address] [place] [address]. [place] [address] Care Team Providers Care Bat Boy/Girl Name Role Phone Ingrid Santana RN Unavailable Unavailable Momo Forbes MD Primary Care Provider Joseph Quintana MD Unavailable [phone] Encounter Details Date Type Department Care Team (Late st Contact Info) Description 07/31/2014 External Order Results [facility] [address] [address] [place] [phone] Nurse, [facility] Social History Tobacco Use Types Packs/Day [...] Associated Diagnosis Comments EXTERNAL LAB RESULTS Routine 07/29/2014 8:25 AM DRYWALL FINISHER FOREMAN documented in this encounter Results * (ABNORMAL) TXP External Lab Result (07/29/2014 8:25 AM DRYWALL FINISHER FOREMAN) Sodium (External) 138 135 - 145 mmol/L LABDE SCAN Potassium (External) 4.5 3.5 - 5.0 mmol/L LABDE SCAN Chloride (External) 109 98 - 110 mmol/L LABDE SCAN CO2 (External) 23 21 - 31 mmol/L LABDE SCAN Anion Gap (External) 6 5 - 18 LABDE SCAN Glucose (External) 196(H) 65 - 100 mg/dL LABDE SCAN Calcium (External) 10.0 8.5 - 10.5 mg/dL LABDE SCAN Urea Nitrogen (External) 22 8 - 25 mg/dL LABDE SCAN Creatinine (External) 1.42(H) 0.72 - 1.25 mg/dL LABDE SCAN BUN/Creatinine Ratio (External) 15 10 - 20 LABDE SCAN GFR Estimated (if ) (External) >60 >60 ml/min/1.73 m2 LABDE SCAN GFR Estimated (External) 50(L) >60 ml/min/1.73 m2 LABDE SCAN Albumin (External) 4.2 3.2 - 4.6 g/dL LABDE SCAN Protein Total (External) 6.7 6.0 - 8.0 g/dL LABDE SCAN Bilirubin Total (External) 0.9 0.2 - 1.2 mg/dL LABDE SCAN Bilirubin Direct (External) 0.4 0.1 - 0.5 mg/dL LABDE SCAN Alk Phosphatase (External) 101 50 - 136 IU/L LABDE SCAN ALT (External) 18 8 - 45 IU/L LABDE SCAN AST (External) 12 2 - 40 IU/L LABDE SCAN Cholesterol (External) 100 100 - 199 mg/dL LABDE SCAN Triglycerides (External) 64 <150 mg/dL LABDE SCAN LDL-Cholesterol (External) 49 <=130 mg/dL LABDE SCAN Protein Albumin Ur (External) 14 1 - 14 mg/dL LABDE SCAN Creatinine Urine mg/dL (External) 81.0 63.0 - 166.0 mg/dL LABDE SCAN Protein Total Ur per Cr (External) 0.2 LABDE SCAN WBC Count (External) 4.2(L) 4.5 - 11.0 thou/cu mm LABDE SCAN RBC Count (External) 4.67 4.30 - 5.90 mil/cu mm LABDE SCAN Hemoglobin (External) 13.3(L) 13.5 - 17.5 g/dL LABDE SCAN Hematocrit (External) 40.6 37.0 - 53.0 % LABDE SCAN MCV (External) 87 80 - 100 fL LABDE SCAN MCH (External) 28.5 26.0 - 34.0 pg LABDE SCAN MCHC (External) 32.8 32.0 - 36.0 g/dL LABDE SCAN RDW (External) 14.4 11.5 - 15.5 % LABDE SCAN Platelet Count (External) 109(L) 140 - 440 thou/cu mm LABDE SCAN MPV (External) 10.6 6.5 - 11.0 fL LABDE SCAN Hep B Surface Agn (External) 38.75 >=12.00 mIU/mL LABDE SCAN Hepatitis B Core Shaye (External) Non-Reactiv e Non-Reactiv e LABDE SCAN BK Virus Quant Rapid PCR (External) None detected None detected LABDE SCAN Hepatitis C Antibody (External) Non-Reactiv e Non-Reactiv e LABDE SCAN HDL Cholesterol (External) 38(L) >40 mg/dL LABDE SCAN 07/29/2014 8:25 AM DRYWALL FINISHER FOREMAN Narrative JESSICA PFT - 07/31/2014 2:47 PM DRYWALL FINISHER FOREMAN Verified by Nazia Duncan on 07/31/2014. Verified by Freddy Mehta on 07/31/2014. Patient Reported LABORATORY BRETYLER PFT LABDE SCAN documented in this encounter Visit Diagnoses Not on filedocumented in this encounter Care Teams Bat Boy/Girl Relationship Specialty Start Date End Date Momo Forbes MD PCP - General Family Practice 01/02/14 Ingrid Santana, RN Registered Nurse Transplant 02/10/12 10/01/15 Joseph Quintana MD [address] [facility] [address] [facility] [address] [place] [address] Assigned Nephrology Provider 03/29/21 09/10/22 documented as of this encounter
--- OUTSIDE RECORDS SUMMARY | 2023-08-31 13:14 | XMS_ITS | Encounter Summary ---
Author Name Unknown Organization [place] Address [address] [place] [address]. [place] [address] Care Team Providers Care Photo Lab Technician Name Role Phone Ingrid Santana RN Unavailable Unavailable Momo Forbes MD Primary Care Provider Joseph Quintana MD Unavailable [phone] Encounter Details Date Type Department Care Team (Late st Contact Info) Description 07/03/2014 External Order Results [facility] Clinic [address]A [address] [place] [phone] Nurse, [facility] Social History Tobacco Use Types [...] Associated Diagnosis Comments EXTERNAL LAB RESULTS Routine 07/01/2014 8:27 AM RN CLINICIAN documented in this encounter Results * (ABNORMAL) TXP External Lab Result (07/01/2014 8:27 AM RN CLINICIAN) Sodium (External) 140 135 - 145 mmol/L LABDE SCAN Potassium (External) 4.5 3.5 - 5.0 mmol/L LABDE SCAN Chloride (External) 110(H) 98 - 107 mmol/L LABDE SCAN CO2 (External) 23 21 - 31 mmol/L LABDE SCAN Anion Gap (External) 7 5 - 18 LABDE SCAN Glucose (External) 224(H) 65 - 100 mg/dL LABDE SCAN Calcium (External) 10.0 8.5 - 10.5 mg/dL LABDE SCAN Urea Nitrogen (External) 25 8 - 25 mg/dL LABDE SCAN Creatinine (External) 1.51(H) 0.72 - 1.25 mg/dL LABDE SCAN BUN/Creatinine Ratio (External) 17 10 - 20 LABDE SCAN GFR Estimated (if ) (External) 57(L) >60 ml/min/1.7 3m2 LABDE SCAN GFR Estimated (External) 47(L) >60 ml/min/1.7 3m2 LABDE SCAN WBC Count (External) 4.8 4.5 - 11.0 thou/cu mm LABDE SCAN RBC Count (External) 4.76 4.30 - 5.90 mil/cu mm LABDE SCAN Hemoglobin (External) 13.2(L) 13.5 - 17.5 g/dL LABDE SCAN Hematocrit (External) 41.3 37.0 - 53.0 % LABDE SCAN MCV (External) 87 80 - 100 fL LABDE SCAN MCH (External) 27.7 26.0 - 34.0 pg LABDE SCAN MCHC (External) 32.0 32.0 - 36.0 g/dL LABDE SCAN RDW (External) 14.9 11.5 - 15.5 % LABDE SCAN Platelet Count (External) 103(L) 140 - 440 thou/cu mm LABDE SCAN MPV (External) 11.1(H) 6.5 - 11.0 fL LABDE SCAN 07/01/2014 8:27 AM RN CLINICIAN Narrative JESSICA PFT - 07/03/2014 2:18 PM RN CLINICIAN Verified by Xiomara Bello on 07/03/2014. Patient Reported LABORATORY BREEZE PFT LABDE SCAN documented in this encounter Visit Diagnoses Not on filedocumented in this encounter Care Teams Photo Lab Technician Relationship Specialty Start Date End Date Momo Forbes MD PCP - General Family Practice 01/02/14 Ingrid Santana, RN Registered Nurse Transplant 02/10/12 10/01/15 Joseph Quintana MD [address] [place] [address] Assigned Nephrology Provider 03/29/21 09/10/22 documented as of this encounter
--- OUTSIDE RECORDS SUMMARY | 2023-08-31 13:14 | XMS_ITS | Encounter Summary ---
Author Name Unknown Organization [facility] Address [address] [place] [address]. [place] [address] Care Team Providers Care Customer Business Manager Name Role Phone Ingrid Santana RN Unavailable Unavailable Momo Forbes MD Primary Care Provider Joseph Quintana MD Unavailable [phone] Encounter Details Date Type Department Care Team (Late st Contact Info) Description 07/17/2014 External Order Results [facility] Clinic [address]A [address] [place] [phone] Nurse, [facility] Social History Tobacco Use Types Packs/Day [...] Associated Diagnosis Comments EXTERNAL LAB RESULTS Routine 07/15/2014 8:28 AM DRY CANS OPERATOR documented in this encounter Results * (ABNORMAL) TXP External Lab Result (07/15/2014 8:28 AM DRY CANS OPERATOR) Sodium (External) 138 135 - 145 mmol/L LABDE SCAN Potassium (External) 4.4 3.5 - 5.0 mmol/L LABDE SCAN Chloride (External) 109 98 - 110 mmol/L LABDE SCAN CO2 (External) 22 21 - 31 mmol/L LABDE SCAN Anion Gap (External) 7 5 - 18 LABDE SCAN Glucose (External) 219(H) 65 - 100 mg/dL LABDE SCAN Calcium (External) 9.9 8.5 - 10.5 mg/dL LABDE SCAN Urea Nitrogen (External) 22 8 - 25 mg/dL LABDE SCAN Creatinine (External) 1.44(H) 0.72 - 1.25 mg/dL LABDE SCAN BUN/Creatinine Ratio (External) 15 10 - 20 LABDE SCAN GFR Estimated (if ) (External) 60(L) >60 ml/min/1.7 3m2 LABDE SCAN GFR Estimated (External) 49(L) >60 ml/min/1.7 3m2 LABDE SCAN WBC Count (External) 5.2 4.5 - 11.0 thou/cu mm LABDE SCAN RBC Count (External) 4.70 4.30 - 5.90 mil/cu mm LABDE SCAN Hemoglobin (External) 13.1(L) 13.5 - 17.5 g/dL LABDE SCAN Hematocrit (External) 40.5 37.0 - 53.0 % LABDE SCAN MCV (External) 86 80 - 100 fL LABDE SCAN MCH (External) 27.9 26.0 - 34.0 pg LABDE SCAN MCHC (External) 32.3 32.0 - 36.0 g/dL LABDE SCAN RDW (External) 14.7 11.5 - 15.5 % LABDE SCAN Platelet Count (External) 108(L) 140 - 440 thou/cu mm LABDE SCAN MPV (External) 10.8 6.5 - 11.0 fL LABDE SCAN 07/15/2014 8:28 AM DRY CANS OPERATOR Narrative JESSICA PFT - 07/17/2014 8:35 AM DRY CANS OPERATOR Verified by Maribel Plunkett on 07/17/2014. Patient Reported LABORATORY BREEZE PFT LABDE SCAN documented in this encounter Visit Diagnoses Not on filedocumented in this encounter Care Teams Customer Business Manager Relationship Specialty Start Date End Date Momo Forbes MD PCP - General Family Practice 01/02/14 Ingrid Santana, RN Registered Nurse Transplant 02/10/12 10/01/15 Joseph Quintana MD [address] [place] [address] Assigned Nephrology Provider 03/29/21 09/10/22 documented as of this encounter
--- OUTSIDE RECORDS SUMMARY | 2023-08-31 13:14 | XMS_ITS | Encounter Summary ---
Author Name Unknown Organization [place] Address [address] [place] [address]. [place] [address] Care Team Providers Care Gas Burner Operator Name Role Phone Ingrid Santana RN Unavailable Unavailable Momo Forbes MD Primary Care Provider Joseph Quintana MD Unavailable [phone] Encounter Details Date Type Department Care Team (Late st Contact Info) Description 08/28/2014 External Order Results [facility] [address] [place] [phone] Nurse, [facility] Social History Tobacco Use Types Packs/Day [...] Associated Diagnosis Comments EXTERNAL LAB RESULTS Routine 08/26/2014 10:25 AM GAS STOVE SERVICER HELPER documented in this encounter Results * (ABNORMAL) TXP External Lab Result (08/26/2014 10:25 AM GAS STOVE SERVICER HELPER) Sodium (External) 139 135 - 145 mmol/L LABDE SCAN Potassium (External) 4.8 3.5 - 5.0 mmol/L LABDE SCAN Chloride (External) 107 98 - 110 mmol/L LABDE SCAN CO2 (External) 24 21 - 31 mmol/L LABDE SCAN Anion Gap (External) 8 5 - 18 LABDE SCAN Glucose (External) 192(H) 65 - 100 mg/dL LABDE SCAN Calcium (External) 10.4 8.5 - 10.5 mg/dL LABDE SCAN Urea Nitrogen (External) 30(H) 8 - 25 mg/dL LABDE SCAN Creatinine (External) 1.48(H) 0.72 - 1.25 mg/dL LABDE SCAN BUN/Creatinine Ratio (External) 20 10 - 20 LABDE SCAN GFR Estimated (if ) (External) 58(L) >60 ml/min/1.7 3m2 LABDE SCAN GFR Estimated (External) 48(L) >60 ml/min/1.7 3m2 LABDE SCAN WBC Count (External) 4.2(L) 4.5 - 11.0 thou/cu mm LABDE SCAN RBC Count (External) 4.66 4.30 - 5.90 mil/cu mm LABDE SCAN Hemoglobin (External) 13.6 13.5 - 17.5 g/dL LABDE SCAN Hematocrit (External) 40.7 37.0 - 53.0 % LABDE SCAN Platelet Count (External) 105(L) 140 - 440 thou/cu mm LABDE SCAN 08/26/2014 10:2 5 AM GAS STOVE SERVICER HELPER Narrative JESSICA PFT - 08/28/2014 4:34 PM GAS STOVE SERVICER HELPER Verified by Freddy Mehta on 08/28/2014. Patient Reported LABORATORY BRETYLER PFT LABDE SCAN documented in this encounter Visit Diagnoses Not on filedocumented in this encounter Care Teams Gas Burner Operator Relationship Specialty Start Date End Date Momo Forbes MD PCP - General Family Practice 01/02/14 Ingrid Santana, RN Registered Nurse Transplant 02/10/12 10/01/15 Joseph Quintana MD [address] [place] [address] Assigned Nephrology Provider 03/29/21 09/10/22 documented as of this encounter
--- OUTSIDE RECORDS SUMMARY | 2023-08-31 13:14 | XMS_ITS | Encounter Summary ---
Author Name Unknown Organization [place] Address [address] [facility] [place] [address] Care Team Providers Care Lastex Thread Winder Name Role Phone Momo Forbes MD Primary Care Provider Joseph Quintana MD Unavailable [phone] Encounter Details Date Type Department Care Team (Late st Contact Info) Description 08/18/2016 External Order Results [facility] [address] [place] [address] Nurse, [facility] Social History Tobacco Use Types Packs/Day [...] Associated Diagnosis Comments EXTERNAL LAB RESULTS Routine 08/09/2016 12:21 PM MIXER ATTENDANT documented in this encounter Results * (ABNORMAL) TXP External Lab Result (08/09/2016 12:21 PM MIXER ATTENDANT) Sodium (External) 140 135 - 145 LABDE SCAN Potassium (External) 5.0 3.5 - 5.0 LABDE SCAN Chloride (External) 106 98 - 110 LABDE SCAN CO2 (External) 26 21 - 31 LABDE SCAN Anion Gap (External) 8 5 - 18 LABDE SCAN Glucose (External) 249(H) 65 - 100 LABDE SCAN Calcium (External) 9.9 8.5 - 10.5 LABDE SCAN Urea Nitrogen (External) 16 8 - 25 LABDE SCAN Creatinine (External) 1.37(H) 0.72 - 1.25 LABDE SCAN BUN/Creatinine Ratio (External) 12 10 - 20 LABDE SCAN GFR Estimated (if ) (External) >60 >60 LABDE SCAN GFR Estimated (External) 52(L) >60 LABDE SCAN Hemoglobin A1C (External) 12.0(H) <=6.4 LABDE SCAN 08/09/2016 12:2 1 PM MIXER ATTENDANT Narrative ZACHERYEZBea PFT - 08/18/2016 1:35 PM MIXER ATTENDANT Verified by Jessica Major on 08/18/2016. Patient Reported LABORATORY BREEZE PFT LABDE SCAN documented in this encounter Visit Diagnoses Not on filedocumented in this encounter Care Teams Lastex Thread Winder Relationship Specialty Start Date End Date Momo Forbes MD PCP - General Family Practice 01/02/14 Joseph Quintana MD [address] [place] [address] Assigned Nephrology Provider 03/29/21 09/10/22 documented as of this encounter
--- OUTSIDE RECORDS SUMMARY | 2023-08-31 13:14 | XMS_ITS | Encounter Summary ---
Author Name Unknown Organization [place] Address [address] [place] [address]. [place] [address] Care Team Providers Care Herpetologist Name Role Phone Ingrid Santana RN Unavailable Unavailable Momo Forbes MD Primary Care Provider [phone] Joseph Quintana MD Unavailable [phone] Encounter Details Date Type Department Care Team (Late st Contact Info) Description 06/24/2014 External Order Results [facility] [address] [place] [phone] Nurse, [facility] Social History Tobacco Use Types Packs/Day [...] Associated Diagnosis Comments EXTERNAL LAB RESULTS Routine 06/24/2014 8:37 AM CURED MEAT PACKING SUPERVISOR documented in this encounter Results * (ABNORMAL) TXP External Lab Result (06/24/2014 8:37 AM CURED MEAT PACKING SUPERVISOR) Sodium (External) 139 135 - 145 mmol/L LABDE SCAN Potassium (External) 5.1(H) 3.5 - 5.0 mmol/L LABDE SCAN Chloride (External) 109(H) 98 - 107 mmol/L LABDE SCAN CO2 (External) 24 21 - 31 mmol/L LABDE SCAN Anion Gap (External) 6 5 - 18 LABDE SCAN Glucose (External) 209(H) 65 - 100 mg/dL LABDE SCAN Calcium (External) 10.2 8.5 - 10.5 mg/dL LABDE SCAN Urea Nitrogen (External) 28(H) 8 - 25 mg/dL LABDE SCAN Creatinine (External) 1.58(H) 0.72 - 1.25 mg/dL LABDE SCAN BUN/Creatinine Ratio (External) 18 10 - 20 LABDE SCAN GFR Estimated (if ) (External) 54(L) >60 ml/min/1.7 3m2 LABDE SCAN GFR Estimated (External) 44(L) >60 ml/min/1.7 3m2 LABDE SCAN WBC Count (External) 4.5 4.5 - 11.0 thou/cu mm LABDE SCAN RBC Count (External) 4.94 4.30 - 5.90 mil/cu mm LABDE SCAN Hemoglobin (External) 13.9 13.5 - 17.5 g/dL LABDE SCAN Hematocrit (External) 42.4 37.0 - 53.0 % LABDE SCAN MCV (External) 86 80 - 100 fL LABDE SCAN MCH (External) 28.1 26.0 - 34.0 pg LABDE SCAN MCHC (External) 32.8 32.0 - 36.0 g/dL LABDE SCAN RDW (External) 15.0 11.5 - 15.5 % LABDE SCAN Platelet Count (External) 105(L) 140 - 440 thou/cu mm LABDE SCAN MPV (External) 10.5 6.5 - 11.0 fL LABDE SCAN 06/24/2014 8:37 AM CURED MEAT PACKING SUPERVISOR Narrative JESSICA PFT - 06/24/2014 2:52 PM CURED MEAT PACKING SUPERVISOR Verified by Sofie Verdin on 06/24/2014. Patient Reported LABORATORY BREEZE PFT LABDE SCAN documented in this encounter Visit Diagnoses Not on filedocumented in this encounter Care Teams Herpetologist Relationship Specialty Start Date End Date Momo Forbes MD PCP - General Family Practice 01/02/14 Ingrid Santana, RN Registered Nurse Transplant 02/10/12 10/01/15 Joseph Quintana MD [address] [place] [id number] Assigned Nephrology Provider 03/29/21 09/10/22 documented as of this encounter
--- OUTSIDE RECORDS SUMMARY | 2023-08-31 13:14 | XMS_ITS | Encounter Summary ---
Author Name Unknown Organization [place] Address [address] [facility] [address] Care Team Providers Care Urban Planning Teacher Name Role Phone Momo Forbes MD Primary Care Provider [phone] Joseph Quintana MD Unavailable [phone] Encounter Details Date Type Department Care Team (Late st Contact Info) Description 05/03/2016 External Order Results [facility] [address] [place] [address] Nurse, [facility] Social History Tobacco Use Types Packs/Day [...] Associated Diagnosis Comments EXTERNAL LAB RESULTS Routine 03/17/2016 10:40 AM CDT documented in this encounter Results * (ABNORMAL) TXP External Lab Result (03/17/2016 10:40 AM CDT) Protein Total Ur (External) 25(H) 1 - 14 mg/dL LABDE SCAN Creatinine Urine mg/dL (External) 57.4(L) 63.0 - 166.0 mg/dL LABDE SCAN Protein Total Ur per Cr (External) 0.4 RATIO LABDE SCAN 03/17/2016 10:4 0 AM CDT Narrative JESSICA PFT - 05/03/2016 9:58 AM CDT Verified by Xiomara Bello on 05/03/2016. Patient Reported LABORATORY BRETYLER PFT LABDE SCAN documented in this encounter Visit Diagnoses Not on filedocumented in this encounter Care Teams Urban Planning Teacher Relationship Specialty Start Date End Date Momo Forbes MD PCP - General Family Practice 01/02/14 Joseph Quintana MD [address] [place] [address] [address] [place] [address] Assigned Nephrology Provider 03/29/21 09/10/22 documented as of this encounter
--- OUTSIDE RECORDS SUMMARY | 2023-08-31 13:14 | XMS_ITS | Encounter Summary ---
Author Name Unknown Organization [place] Address [address] [place] [address]. [place] [address] Care Team Providers Care Cleaner Name Role Phone Ingrid Santana RN Unavailable Unavailable Momo Forbes MD Primary Care Provider Joseph Quintana MD Unavailable [phone] Encounter Details Date Type Department Care Team (Late st Contact Info) Description 02/03/2015 External Order Results [facility] [address] [place] [phone] Nurse, [facility] Social History Tobacco Use [...] Associated Diagnosis Comments EXTERNAL LAB RESULTS Routine 01/28/2015 8:56 AM CDT documented in this encounter Results * (ABNORMAL) TXP External Lab Result (01/28/2015 8:56 AM CDT) Sodium (External) 140 135 - 145 mmol/L LABDE SCAN Potassium (External) 4.3 3.5 - 5.0 mmol/L LABDE SCAN Chloride (External) 108 98 - 110 mmol/L LABDE SCAN CO2 (External) 21 21 - 31 mmol/L LABDE SCAN Anion Gap (External) 11 5 - 18 LABDE SCAN Glucose (External) 299(H) 65 - 100 mg/dL LABDE SCAN Calcium (External) 10.0 8.5 - 10.5 mg/dL LABDE SCAN Urea Nitrogen (External) 20 8 - 25 mg/dL LABDE SCAN Creatinine (External) 1.65(H) 0.72 - 1.25 mg/dL LABDE SCAN BUN/Creatinine Ratio (External) 12 10 - 20 LABDE SCAN GFR Estimated (if ) (External) 51(L) >60 ml/min/1. 73m2 LABDE SCAN GFR Estimated (External) 42(L) >60 ml/min/1. 73m2 LABDE SCAN Albumin (External) 4.0 3.2 - 4.6 g/dL LABDE SCAN Protein Total (External) 6.5 6.0 - 8.0 g/dL LABDE SCAN Bilirubin Total (External) 0.8 0.2 - 1.2 mg/dL LABDE SCAN Bilirubin Direct (External) 0.3 0.1 - 0.5 mg/dL LABDE SCAN Alk Phosphatase (External) 102 50 - 136 U/L LABDE SCAN ALT (External) 14 8 - 45 U/L LABDE SCAN AST (External) 13 2 - 40 U/L LABDE SCAN Cholesterol (External) 114 100 - 199 mg/dL LABDE SCAN WBC Count (External) 3.1(L) 4.5 - 11.0 thou/cu mm LABDE SCAN RBC Count (External) 5.06 4.30 - 5.90 mil/cu mm LABDE SCAN Hemoglobin (External) 14.8 13.5 - 17.5 g/dL LABDE SCAN Hematocrit (External) 43.1 37.0 - 53.0 % LABDE SCAN MCV (External) 85 80 - 100 fL LABDE SCAN MCH (External) 29.2 26.0 - 34.0 pg LABDE SCAN MCHC (External) 34.3 32.0 - 36.0 g/dL LABDE SCAN RDW (External) 14.2 11.5 - 15.5 % LABDE SCAN Platelet Count (External) 106(L) 140 - 440 thou/cu mm LABDE SCAN MPV (External) 11.2(H) 6.5 - 11.0 fL LABDE SCAN Hemoglobin A1C (External) 9.3(H) <=6.4 % LABDE SCAN Triglycerides (External) 155(H) <150 mg/dL LABDE SCAN HDL Cholesterol (External) 32(L) >40 mg/dL LABDE SCAN LDL-Cholesterol (External) 51 <=130 mg/dL LABDE SCAN Protein Albumin Ur (External) 15(H) 1 - 14 mg/dL LABDE SCAN Creatinine Urine mg/dL (External) 120.1 63.0 - 166.0 mg/dL LABDE SCAN Protein Total Ur per Cr (External) 0.1 RATIO LABDE SCAN 01/28/2015 8:56 AM CDT Narrative JESSICA PFT - 02/03/2015 9:19 AM CDT Verified by Freddy Mehta on 02/03/2015. Patient Reported LABORATORY ZACHERYTYLER PFT LABDE SCAN documented in this encounter Visit Diagnoses Not on filedocumented in this encounter Care Teams Cleaner Relationship Specialty Start Date End Date Momo Forbes MD PCP - General Family Practice 01/02/14 Ingrid Santana, RN Registered Nurse Transplant 02/10/12 10/01/15 Joseph Quintana MD [address] [place] [address] [address] [place] [address] Assigned Nephrology Provider 03/29/21 09/10/22 documented as of this encounter
--- OUTSIDE RECORDS SUMMARY | 2023-08-31 13:14 | XMS_ITS | Encounter Summary ---
Author Name Unknown Organization [place] Address [address] [facility] [place] [address] Care Team Providers Care Greige Goods Inspector Name Role Phone Momo Forbes MD Primary Care Provider [phone] Joseph Quintana MD Unavailable [phone] Encounter Details Date Type Department Care Team (Late st Contact Info) Description 03/18/2016 External Order Results [facility] [address] [place] [address] Nurse, [facility] Social History Tobacco Use Types [...] Diagnosis Comments EXTERNAL LAB RESULTS Routine 03/17/2016 10:45 AM CDT documented in this encounter Results * (ABNORMAL) TXP External Lab Result (03/17/2016 10:45 AM CDT) Sodium (External) 139 135 - 145 mmol/L LABDE SCAN Potassium (External) 4.4 3.5 - 5.0 mmol/L LABDE SCAN Chloride (External) 108 98 - 110 mmol/L LABDE SCAN CO2 (External) 20(L) 21 - 31 mmol/L LABDE SCAN Anion Gap (External) 11 5 - 18 LABDE SCAN Glucose (External) 298(H) 65 - 100 mg/dL LABDE SCAN Calcium (External) 10.3 8.5 - 10.5 mg/dL LABDE SCAN Urea Nitrogen (External) 18 8 - 25 mg/dL LABDE SCAN Creatinine (External) 1.53(H) 0.72 - 1.25 mg/dL LABDE SCAN BUN/Creatinine Ratio (External) 12 10 - 20 LABDE SCAN GFR Estimated (if ) (External) 56(L) >60 ml/min/1. 73m2 LABDE SCAN GFR Estimated (External) 46(L) >60 ml/min/1. 73m2 LABDE SCAN Cholesterol (External) 94(L) 100 - 199 mg/dL LABDE SCAN Triglycerides (External) 103 <150 mg/dL LABDE SCAN HDL Cholesterol (External) 33(L) >40 mg/dL LABDE SCAN LDL-Cholesterol (External) 40 <=130 mg/dL LABDE SCAN WBC Count (External) 4.6 4.5 - 11.0 thou/cu mm LABDE SCAN RBC Count (External) 5.08 4.30 - 5.90 mil/cu mm LABDE SCAN Hemoglobin (External) 14.5 13.5 - 17.5 g/dL LABDE SCAN Hematocrit (External) 43.3 37.0 - 53.0 % LABDE SCAN MCV (External) 85 80 - 100 fL LABDE SCAN MCH (External) 28.5 26.0 - 34.0 pg LABDE SCAN MCHC (External) 33.5 32.0 - 36.0 g/dL LABDE SCAN RDW (External) 14.6 11.5 - 15.5 % LABDE SCAN Platelet Count (External) 104(L) 140 - 440 thou/cu mm LABDE SCAN MPV (External) 11.3(H) 6.5 - 11.0 fL LABDE SCAN 03/17/2016 10:4 5 AM CDT Narrative ZACHERYTYLER MORELIA - 03/18/2016 7:35 AM CDT Verified by Tabitha Mora on 03/18/2016. Patient Reported LABORATORY ZACHERYEZE PFT LABDE SCAN documented in this encounter Visit Diagnoses Not on filedocumented in this encounter Care Teams Greige Goods Inspector Relationship Specialty Start Date End Date Momo Forbes MD PCP - General Family Practice 01/02/14 Joseph Quintana MD [address] [place] [address] Assigned Nephrology Provider 03/29/21 09/10/22 documented as of this encounter
--- OUTSIDE RECORDS SUMMARY | 2023-08-31 13:14 | XMS_ITS | Encounter Summary ---
Author Name Unknown Organization [place] Address [address] [place] [address]. [place] [address] Care Team Providers Care Station Agent Name Role Phone Ingrid Santana RN Unavailable Unavailable Momo Forbes MD Primary Care Provider Joseph Quintana MD Unavailable [phone] Encounter Details Date Type Department Care Team (Late st Contact Info) Description 06/08/2014 External Order Results [facility] Clinic [address] [place] [phone] Nurse, [facility] Social History Tobacco Use Types Packs/Day [...] Associated Diagnosis Comments EXTERNAL LAB RESULTS Routine 06/05/2014 8:30 AM CDT documented in this encounter Results * (ABNORMAL) TXP External Lab Result (06/05/2014 8:30 AM CDT) Sodium (External) 138 135 - 145 mmol/L LABDE SCAN Potassium (External) 4.5 3.5 - 5.0 mmol/L LABDE SCAN Chloride (External) 108(H) 98 - 107 mmol/L LABDE SCAN CO2 (External) 22 21 - 31 mmol/L LABDE SCAN Anion Gap (External) 8 5 - 18 LABDE SCAN Glucose (External) 185(H) 65 - 100 mg/dL LABDE SCAN Calcium (External) 9.9 8.5 - 10.5 mg/dL LABDE SCAN Urea Nitrogen (External) 28(H) 8 - 25 mg/dL LABDE SCAN Creatinine (External) 1.40(H) 0.72 - 1.25 mg/dL LABDE SCAN BUN/Creatinine Ratio (External) 20 10 - 20 LABDE SCAN GFR Estimated (if ) (External) >60 >60 ml/min/1. 73m2 LABDE SCAN GFR Estimated (External) 51(L) >60 ml/min/1. 73m2 LABDE SCAN Cholesterol (External) 98(L) 100 - 199 mg/dL LABDE SCAN Triglycerides (External) 87 <150 mg/dL LABDE SCAN HDL Cholesterol (External) 31(L) >40 mg/dL LABDE SCAN LDL-Cholesterol (External) 50 <=130 mg/dL LABDE SCAN WBC Count (External) 4.2(L) 4.5 - 11.0 thou/cu mm LABDE SCAN RBC Count (External) 4.86 4.30 - 5.90 mil/cu mm LABDE SCAN Hemoglobin (External) 13.5 13.5 - 17.5 g/dL LABDE SCAN Hematocrit (External) 41.5 37.0 - 53.0 % LABDE SCAN MCV (External) 85 80 - 100 fL LABDE SCAN MCH (External) 27.8 26.0 - 34.0 pg LABDE SCAN MCHC (External) 32.5 32.0 - 36.0 g/dL LABDE SCAN RDW (External) 14.9 11.5 - 15.5 % LABDE SCAN Platelet Count (External) 123(L) 140 - 440 thou/cu mm LABDE SCAN MPV (External) 10.5 6.5 - 11.0 fL LABDE SCAN 06/05/2014 8:30 AM CDT Yohana ANDREAT - 06/08/2014 9:01 AM CDT Verified by Janee Alexis on 06/08/2014. Patient Reported LABORATORY BREEZE PFT LABDE SCAN documented in this encounter Visit Diagnoses Not on filedocumented in this encounter Care Teams Station Agent Relationship Specialty Start Date End Date Momo Forbes MD PCP - General Family Practice 01/02/14 Ingrid Santana, RN Registered Nurse Transplant 02/10/12 10/01/15 Joseph Quintana MD [address] [facility] [address] [facility] [address] [place] [address] Assigned Nephrology Provider 03/29/21 09/10/22 documented as of this encounter
--- OUTSIDE RECORDS SUMMARY | 2023-08-31 13:14 | XMS_ITS | Encounter Summary ---
Author Name Unknown Organization [place] Address [address] [place] [address]. [place] [address] Care Team Providers Care Slip Presser Name Role Phone Ingrid Santana RN Unavailable Unavailable Momo Forbes MD Primary Care Provider Joseph Quintana MD Unavailable [phone] Encounter Details Date Type Department Care Team (Late st Contact Info) Description 08/14/2015 External Order Results [facility] Clinic [address] [place] [phone] Nurse, [facility] Social History Tobacco Use Types Packs/Day [...] Associated Diagnosis Comments EXTERNAL LAB RESULTS Routine 08/12/2015 4:41 PM WATCH DIAL STONER documented in this encounter Results * (ABNORMAL) TXP External Lab Result (08/12/2015 4:41 PM WATCH DIAL STONER) Sodium (External) 135 135 - 145 mmol/L LABDE SCAN Potassium (External) 4.6 3.5 - 5.0 mmol/L LABDE SCAN Chloride (External) 107 98 - 110 mmol/L LABDE SCAN CO2 (External) 21 21 - 31 mmol/L LABDE SCAN Anion Gap (External) 7 5 - 18 LABDE SCAN Glucose (External) 301(H) 65 - 100 mg/dL LABDE SCAN Calcium (External) 10.2 8.5 - 10.5 mg/dL LABDE SCAN Urea Nitrogen (External) 24 8 - 25 mg/dL LABDE SCAN Creatinine (External) 1.46(H) 0.72 - 1.25 mg/dL LABDE SCAN BUN/Creatinine Ratio (External) 16 10 - 20 LABDE SCAN GFR Estimated (if ) (External) 59(L) >60 mL/min/1.7 3/m2 LABDE SCAN GFR Estimated (External) 48(L) >60 mL/min/1.7 3/m2 LABDE SCAN Protein Total Ur (External) 16(H) 1 - 14 mg/dL LABDE SCAN Creatinine Urine mg/dL (External) 74.2 63.0 - 166.0 mg/dL LABDE SCAN Protein Total Ur per Cr (External) 0.2 LABDE SCAN WBC Count (External) 5.7 4.5 - 11.0 thou/cu mm LABDE SCAN RBC Count (External) 5.02 4.3 - 5.9 mil/cu mm LABDE SCAN Hemoglobin (External) 14.6 13.5 - 17.5 g/dL LABDE SCAN Hematocrit (External) 42.5 37.0 - 53.0 % LABDE SCAN MCV (External) 85 80 - 100 fL LABDE SCAN MCH (External) 29.1 26.0 - 34.0 pg LABDE SCAN MCHC (External) 34.4 32.0 - 36.0 g/dL LABDE SCAN RDW (External) 14.1 11.5 - 15.5 % LABDE SCAN Platelet Count (External) 119(L) 140 - 440 thou/cu mm LABDE SCAN MPV (External) 10.5 6.5 - 11.0 fL LABDE SCAN Hemoglobin A1C (External) 8.1(H) <=6.4 % LABDE SCAN 08/12/2015 4:41 PM WATCH DIAL STONER Yohana THIBODEAUX - 08/14/2015 9:25 AM WATCH DIAL STONER Verified by Freddy Mehta on 08/14/2015. Patient Reported LABORATORY BREEZE PFT LABDE SCAN documented in this encounter Visit Diagnoses Not on filedocumented in this encounter Care Teams Slip Presser Relationship Specialty Start Date End Date Momo Forbes MD PCP - General Family Practice 01/02/14 Ingrid Santana, RN Registered Nurse Transplant 02/10/12 10/01/15 Joseph Quintana MD 717 [facility] [address] [facility] [address] [place] [address] Assigned Nephrology Provider 03/29/21 09/10/22 documented as of this encounter
--- OUTSIDE RECORDS SUMMARY | 2023-08-31 13:14 | XMS_ITS | Encounter Summary ---
Author Name Unknown Organization [place] Address [address] [place] [address]. [place] [address] Care Team Providers Care Geothermal Powerplant Mechanic Name Role Phone Ingrid Santana RN Unavailable Unavailable Momo Forbes MD Primary Care Provider [phone] Joseph Quintana MD Unavailable [phone] Encounter Details Date Type Department Care Team (Late st Contact Info) Description 08/06/2014 External Order Results [facility] [address] [place] [phone] Nurse, [facility] Social History Tobacco Use Types Packs/Day [...] Associated Diagnosis Comments EXTERNAL LAB RESULTS Routine 08/05/2014 8:39 AM CAGE SUPERVISOR documented in this encounter Results * (ABNORMAL) TXP External Lab Result (08/05/2014 8:39 AM CAGE SUPERVISOR) Sodium (External) 137 135 - 145 mmol/L LABDE SCAN Potassium (External) 4.9 3.5 - 5.0 mmol/L LABDE SCAN Chloride (External) 109 98 - 110 mmol/L LABDE SCAN CO2 (External) 21 21 - 31 mmol/L LABDE SCAN Anion Gap (External) 7 5 - 18 LABDE SCAN Glucose (External) 241(H) 65 - 100 mg/dL LABDE SCAN Calcium (External) 10.0 8.5 - 10.5 mg/dL LABDE SCAN Urea Nitrogen (External) 26(H) 8 - 25 mg/dL LABDE SCAN Creatinine (External) 1.56(H) 0.72 - 1.25 mg/dL LABDE SCAN BUN/Creatinine Ratio (External) 17 10 - 20 LABDE SCAN GFR Estimated (if ) (External) 55(L) >60 ml/min/1.7 3m2 LABDE SCAN GFR Estimated (External) 45(L) >60 ml/min/1.7 3m2 LABDE SCAN WBC Count (External) 4.6 4.5 - 11.0 thou/cu mm LABDE SCAN RBC Count (External) 4.67 4.30 - 5.90 mil/cu mm LABDE SCAN Hemoglobin (External) 13.4(L) 13.5 - 17.5 g/dL LABDE SCAN Hematocrit (External) 41.3 37.0 - 53.0 % LABDE SCAN MCV (External) 88 80 - 100 fL LABDE SCAN MCH (External) 28.7 26.0 - 34.0 pg LABDE SCAN MCHC (External) 32.4 32.0 - 36.0 g/dL LABDE SCAN RDW (External) 14.6 11.5 - 15.5 % LABDE SCAN Platelet Count (External) 106(L) 140 - 440 thou/cu mm LABDE SCAN MPV (External) 10.9 6.5 - 11.0 fL LABDE SCAN 08/05/2014 8:39 AM CAGE SUPERVISOR Narrative JESSICA PFT - 08/06/2014 7:40 AM CAGE SUPERVISOR Verified by Mary Whitehead on 08/06/2014. Patient Reported LABORATORY BREEZE PFT LABDE SCAN documented in this encounter Visit Diagnoses Not on filedocumented in this encounter Care Teams Geothermal Powerplant Mechanic Relationship Specialty Start Date End Date Momo Forbes MD PCP - General Family Practice 01/02/14 Ingrid Santana, RN Registered Nurse Transplant 02/10/12 10/01/15 Joseph Quintana MD [address] [place] [id number] Assigned Nephrology Provider 03/29/21 09/10/22 documented as of this encounter
--- OUTSIDE RECORDS SUMMARY | 2023-08-31 13:14 | XMS_ITS | Encounter Summary ---
Author Name Unknown Organization [place] Address [address] [place] [address]. [place] [address] Care Team Providers Care Wireworker Supervisor Name Role Phone Ingrid Santana RN Unavailable Unavailable Momo Forbes MD Primary Care Provider [phone] Joseph Quintana MD Unavailable [phone] Encounter Details Date Type Department Care Team (Late st Contact Info) Description 11/07/2014 External Order Results [facility], Clinic [address] [place] [phone] Nurse, [facility] Social History Tobacco Use Types Packs/Day [...] Associated Diagnosis Comments EXTERNAL LAB RESULTS Routine 11/05/2014 8:32 AM CDT documented in this encounter Results * (ABNORMAL) TXP External Lab Result (11/05/2014 8:32 AM CDT) Sodium (External) 140 135 - 145 mmol/L LABDE SCAN Potassium (External) 4.3 3.5 - 5.0 mmol/L LABDE SCAN Chloride (External) 110 98 - 110 mmol/L LABDE SCAN CO2 (External) 22 21 - 31 mmol/L LABDE SCAN Anion Gap (External) 8 5 - 18 LABDE SCAN Glucose (External) 257(H) 65 - 100 mg/dL LABDE SCAN Calcium [...] ml/min/1.7 3m2 LABDE SCAN WBC Count (External) 3.4(L) 4.5 - 11.0 thou/cu mm LABDE SCAN RBC Count (External) 4.89 4.30 - 5.90 mil/cu mm LABDE SCAN Hemoglobin (External) 14.1 13.5 - 17.5 g/dL LABDE SCAN Hematocrit (External) 41.7 37.0 - 53.0 % LABDE SCAN MCV (External) 85 80 - 100 fL LABDE SCAN MCH (External) 28.8 26.0 - 34.0 pg LABDE SCAN MCHC (External) 33.8 32.0 - 36.0 g/dL LABDE SCAN RDW (External) 13.8 11.5 - 15.5 % LABDE SCAN Platelet Count (External) 109(L) 140 - 440 thou/cu mm LABDE SCAN MPV (External) 11.2(H) 6.5 - 11.0 fL LABDE SCAN 11/05/2014 8:32 AM CDT Narrative JESSICA PFT - 11/07/2014 12:25 PM CDT Verified by Freddy Mehta on 11/07/2014. Patient Reported LABORATORY ZACHERYEZE PFT LABDE SCAN documented in this encounter Visit Diagnoses Not on filedocumented in this encounter Care Teams Wireworker Supervisor Relationship Specialty Start Date End Date Momo Forbes MD PCP - General Family Practice 01/02/14 Ingrid Santana, RN Registered Nurse Transplant 02/10/12 10/01/15 Joseph Quintana MD [address] [place] [address] Assigned Nephrology Provider 03/29/21 09/10/22 documented as of this encounter
--- OUTSIDE RECORDS SUMMARY | 2023-08-31 13:15 | XMS_ITS ---
Author Name Unknown Organization [place] Address [facility] 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 Marked as Active Follow-up on 02/02/2014 Kidney CoordinatorGretta Peacock RN Phone: N/A Fax: N/A Email: N/A [place] Organ Diagnosis Organ Primary Contributory Kidney Diabetes Mellitus - Type II Infection History Noted Survival Infection Treatment Organism Resolved 08/03/2022 8 years 5 months MRSA infection Antibioti cs, Medical management, Antibiotics, Antibiotics 06/01/2022 8 years 3 months Clinical diagno sis of COVID-19 Medical management, Medical management, Medical management 06/01/2022 8 years 3 months Lung infection Antibioti cs, Antibiotics 06/01/2022 8 years 3 months Bladder infection Antibi otics, Antibiotics 09/18/2020 6 years 7 months Gram-negative bacterial infection Surgery, Medical management 09/17/2020 6 years 7 months Bacterial infection Antibiotics Donor Information Organ ABO Source Meets Risk Criteria HLA Match Mismatches Cross Match Right Kidney Transplanted A1 DBD No A: B: DR: T cell (Negative) B cell (Negative) Right Kidney Donor Serology Results Anti-CMV CMV IgG: Positive CMV Nucleic Acid: Positive EBV IgG EBV VCA IgG: Positive Anti-HBcAb HBC Total: Negative HBsAg HBsAg: Negative HBV DNA No results on file Anti-HCV HCV: Negative Anti-HIV I/II HIV-1: Negative Anti-HTLV I/II HTLV: Not Done RPR/VDRL RPR: Negative EBV IgM EBV VCA IgM: Negative HBsAb No results on file EBNA No results on file SARS CoV-2 No results on file Toxoplasma No results on file Trypanosoma Cruzi No results on file Care Team Name Role Phone Fax Email Gretta Peacock RN Kidney Coordinator N/A N/A N/A G German Jones MD Referring Physician [phone] [email or web address] Post-Transplant Pre-Transplant Admitted: 02/02/2014 Referred: 12/07/2011 Transplanted: 02/02/2014 Evaluation began: 2 Discharged: 02/08/2014 Committee: 02/16/2012 Center waitlisted: 2 Appointments (07/31/2023 - 10/01/2023) When With Description 08/26/2023 SOT - Malepati, D No Show Dialysis History Dialysis History Start End Type Comments Center 09/06/2011 02/02/2014 Hemo Dialysis Days p er week -- [facility] Information Center Phone Fax Address [facility] ([facility]) [phone] [address] [place] [address]
--- OUTSIDE RECORDS SUMMARY | 2023-08-31 13:15 | XMS_ITS | Encounter Summary ---
Author Name Unknown Organization [facility] Address [address] [place] [address]. [place] [address] Care Team Providers Care Manager Process Excellence Name Role Phone Ingrid Santana RN Unavailable Unavailable Momo Forbes MD Primary Care Provider Joseph Quintana MD Unavailable [phone] Encounter Details Date Type Department Care Team (Late st Contact Info) Description 05/16/2014 External Order Results [facility], Clinic [address] [place] [phone] Nurse, [facility] Social History Tobacco Use Types Packs/Day [...] Associated Diagnosis Comments EXTERNAL LAB RESULTS Routine 05/15/2014 8:16 AM CDT documented in this encounter Results * (ABNORMAL) TXP External Lab Result (05/15/2014 8:16 AM CDT) Sodium (External) 141 135 - 145 mmol/L LABDE SCAN Potassium (External) 4.8 3.5 - 5.0 mmol/L LABDE SCAN Chloride (External) 110(H) 98 - 107 mmol/L LABDE SCAN CO2 (External) 23 21 - 31 mmol/L LABDE SCAN Anion Gap (External) 8 5 - 18 LABDE SCAN Glucose (External) 180(H) 65 - 100 mg/dL LABDE SCAN Calcium (External) 10.1 8.5 - 10.5 mg/dL LABDE SCAN Urea Nitrogen (External) 29(H) 8 - 25 mg/dL LABDE SCAN Creatinine (External) 1.38(H) 0.72 - 1.25 mg/dL LABDE SCAN BUN/Creatinine Ratio (External) 21(H) 10 - 20 LABDE SCAN GFR Estimated (if ) (External) >60 >60 ml/min/1.7 3m2 LABDE SCAN GFR Estimated (External) 52(L) >60 ml/min/1.7 3m2 LABDE SCAN WBC Count (External) 4.2(L) 4.5 - 11.0 thou/cu mm LABDE SCAN RBC Count (External) 4.56 4.30 - 5.90 mil/cu mm LABDE SCAN Hemoglobin (External) 12.7(L) 13.5 - 17.5 g/dL LABDE SCAN Hematocrit (External) 39.7 37.0 - 53.0 % LABDE SCAN MCV (External) 87 80 - 100 fL LABDE SCAN MCH (External) 27.9 26.0 - 34.0 pg LABDE SCAN MCHC (External) 32.0 32.0 - 36.0 g/dL LABDE SCAN RDW (External) 14.9 11.5 - 15.5 % LABDE SCAN Platelet Count (External) 111(L) 140 - 440 thou/cu mm LABDE SCAN MPV (External) 11.9(H) 6.5 - 11.0 fL LABDE SCAN 05/15/2014 8:16 AM CDT Narrative JESSICA PFT - 05/16/2014 10:38 AM CDT Verified by Mary Whitehead on 05/16/2014. Patient Reported LABORATORY BREEZE PFT LABDE SCAN documented in this encounter Visit Diagnoses Not on filedocumented in this encounter Care Teams Manager Process Excellence Relationship Specialty Start Date End Date Momo Forbes MD PCP - General Family Practice 01/02/14 Ingrid Santana, RN Registered Nurse Transplant 02/10/12 10/01/15 Joseph Quintana MD [address] [place] [address] [id number] Assigned Nephrology Provider 03/29/21 09/10/22 documented as of this encounter
== END 2023-08-31 13:04 | disposition home or self-care (01) ==
LOC: WOUND 13:03
PROVIDERS: PCP Family Medicine; Visit Provider Physician Assistant
DX: L89.312 Pressure ulcer of right buttock, stage 2 (principal); L89.512 Pressure ulcer of right ankle, stage 2
CPT/HCPCS: G0463

== ENCOUNTER 2023-09-07 11:04 | Outpatient (CLI) | payer MEDICARE, BC, SELFPAY | END 2023-09-07 11:05 | disposition home or self-care (01) | LOC: WOUND 11:04 | PROVIDERS: PCP Family Medicine; Visit Provider Physician Assistant | DX: L89.312 Pressure ulcer of right buttock, stage 2 (principal); L89.313 Pressure ulcer of right buttock, stage 3 | CPT/HCPCS: 97597 ==

== ENCOUNTER 2023-09-21 11:14 | Outpatient (CLI) | payer MEDICARE, BC, SELFPAY ==
--- OUTSIDE RECORDS SUMMARY | 2023-09-21 11:16 | XMS_ITS | Clinical Summary ---
Author Name Unknown Organization [facility] Address [address] [place] [address] Care Team Providers Care Vending Machine Filler Name Role Phone Elsewhere, Pcp Primary Care Provider Unavailabl e Source Comments Patient records contain information from all sites at [facility]. For routine questions regarding patient records, call [phone] during business hours, M-F 8:00 AM - 5:00 PM Central Time. Record requests for emergency care only can be directed to [phone] at any time.[facility] Allergies Active Allergy Reactions Criticality Noted Date Comments Lisinopril Cough 05/14/2014 Medications Medication Sig Dispensed Refills Start Date End Date Status torsemide 40 mg tablet Take 40 mg by mouth daily. 60 tablet 0 07/11/2023 Active tacrolimus (PROGRAF) 0.5 mg capsuleIndication s:prevention of kidney transplant rejection Take 1 capsule [...] a day. 60 capsule 11 07/11/2023 07/10/2024 Active pregabalin (LYRICA) 150 mg capsule Take 1 capsule (150 mg total) by mouth 2 (two) times a day for 10 doses. 10 capsule 0 07/11/2023 Active Hospital, Clinic, or Other Facility Administered Medication Ordered Dose Route Frequency Start Date End Date Status LORazepam tablet 1 mg (ATIVAN) 1 mg oral Once 08/08/2023 Active Active Problems Problem Noted Date Diagnosed Date Burrer Machine Use Of Insulin Active 07/04/2023 Overview: He [...] or allowed practitioner. The patient had a [id number] encounter with a physician or an allowed [...] for home care services: Dr. Momo Nath, COUNSELOR DORMITORY, C.N.P. 07/11/23 Cystitis Recurrent 07/04/2023 Overview: Multiple recent urine infections with some leading to hospitalization. Urology evaluation 10/18/2022 with cystoscopy suggested urethral stricture as possible contributing factor. Last Assessment & Plan: He has completed a course of IV ceftriaxone and is awaiting clearance from Infectious Disease to pull PICC line. Burrer Machine (Current) Anticoagulant Treatment 06/22 Overview: On apixaban [...] clean and dry, and return foreskin to kluti kaah position. 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 Diagnosis Maintenance Updates Aug 2023 Last Assessment & Plan: Levemir up to [...] end-stage renal disease on dialysis Follows with [facility]. Last Assessment & Plan: He follows with renal transplant Service at the [facility]. On tacrolimus and mycophenolate. Hypertension Secondary To [...] GFR 28. Follows with renal transplant at [facility]. 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 08/17/2023 Orders Only Department of Urology in [place], [place] [address] [place] [phone] Ebenezer Sanchez M.D. 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 08/12/2023 Clinical Communication Department of Urology in [place], [place] [address] [phone] Ebenezer Sanchez M.D. 08/08/2023 2:35 PM RECYCLE DRIVER Ancillary Procedure Department of Urology 08/08/2023 1:30 PM RECYCLE DRIVER Office Visit Department of Urology in [place], [place] [address] [phone] Ebenezer Sanchez M.D. 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 08/03/2023 Orders Only Department of General Surgery in [place], [place] [address] [phone] Jessica Bradley, Juan.NGenevaAGeneva 08/02/2023 Orders Only Department of Urology in [address] [phone] Ebenezer Sanchez M.D. 08/01/2023 1:30 PM RECYCLE DRIVER - 08/01/2023 11:59 PM RECYCLE DRIVER Hospital Encounter Department of Laboratory Medicine in [address] [phone] Ebenezer Sanchez M.D. Urinary Tract Infection Site Not Specified; Retention Urinary Discharge Disposition: Home or Self Care 07/11/2023 10:00 AM RECYCLE DRIVER External Outreach [facility] in [facility] [address] [phone] Victorina Cao M.D. Dunton, Peggy V., EDUARDO, C.N.P. 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 07/08/2023 Clinical Communication [facility] in [place] [address] [phone] Arlette Nath APRN, C.N.P. 07/04/2023 3:00 PM RECYCLE DRIVER External Outreach [facility] in [place] [address] [phone] Victorina Cao M.D. 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 Hyperglycemic (HCC); Depression Major Recurrent Moderate (HCC); Chronic Diastolic (Congestive) Heart Failure ([facility]); Apnea Sleep Obstructive; Anemia Of Chronic Renal Disease; Cystitis Recurrent; Gastroesophageal Reflux Disease Without Esophagitis; Diabetes Mellitus Type 2 With Diabetic Neuropathy Hyperglycemic (HCC); Other Urethral 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; Hyperlipidemia; Atrial Fibrillation Permanent (HCC); Penitentiary (Current) Anticoagulant Treatment; Hypothyroidism On Replacement; 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 (HCC); 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 Rate 15-29 (HCC); Polyneuropathy; Bradycardia; Pressure Injury (Ulcer) Of Right Ankle Stage 2 (HCC); Insomnia 06/30/2023 3:00 PM RECYCLE DRIVER External Outreach [facility] in [facility] [address] [phone] Arlette Nath APRN, C.N.P. Urinary Tract Infection Site Not Specified [...] (HCC); 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) 06/30/2023 Orders Only [facility] in [place] [address] [phone] Arlette Nath V., EDUARDO, C.N.P. from Last 3 Months Immunizations Name Administration Dates Next Due HepB, Unspecified 02/08/2012 Influenza (IM) Preservative Free 05/12/2011,04/23 Influenza TIV (IM) 06/26/2018, 7,05/30/2017,2012,06/05/2013,05/17/2012,05/12/2011,0 05/15/2010,05/20/2009 Influenza high dose QV(65 ye ars or older) (PF) 07/01/2022,09/22/2021,07/30/2021 Influenza, Seasonal, Injectable 07/12/20 17,06/05/2013,05/17/2012,2008 Influenza, Unspecified 05/29/2020,05/20/2009 PCV13 03/17/2016 PPSV23 05/05/2011 SARS-COV-2 (COVID-19) - LEO (J&J) 09/22/2021 Td (Adult), adsorbed 01/12/2019 Td [...] Comments Blood Pressure 103/66 07/11/2023 8:54 AM RECYCLE DRIVER Pulse 79 07/11/2023 8:54 AM RECYCLE DRIVER Temperature 36.5 ??C (97.7 ??F) 07/11/2023 8:54 AM CS T Respiratory Rate 16 07/11/2023 8:54 AM RECYCLE DRIVER Oxygen Saturation 97% 07/11/2023 8:54 AM RECYCLE DRIVER Inhaled Oxygen Concentration - - Weight 134 kg (294 lb 6.4 oz) 07/11/2023 8:54 AM RECYCLE DRIVER Height 182.9 cm (6') 07/04/2023 6:11 PM RECYCLE DRIVER Body Mass Index 39.93 07/04/2023 6:11 PM RECYCLE DRIVER Plan of Treatment Upcoming Encounters Date Type Department Care Team (Late st Contact Info) Description 12/01/2023 11:00 AM CDT Office Visit Department of Urology in [place], [place] [address], [place] [address] Antonia Krause APRN, C.N.P. [address], [place] [address] Health Maintenance Due Date Last Done [...] PCV20) 05/12/2016 03/17/2016, 05/05/2011 COVID-19 Vaccine ( season) 2023 09/22/2021, 09/22/2021, [...] IMAGE EXAM Routine 08/08/2023 1: 52 PM RECYCLE DRIVER BACTERIAL CULTURE, AEROBIC + SUSC, URINE Routine 08/01/2023 1:20 PM RECYCLE DRIVER Urinary Tract Infection Site Not Specified Retention Urinary from Last 3 Months Results * CYSTOSCOPY-Urology Image Exam (08/08/2023 1:52 PM RECYCLE DRIVER) 08/08/2023 2:33 PM RECYCLE DRIVER Narrative IIMS - 08/08/2023 1:52 PM RECYCLE DRIVER This order has been created and auto-finalized to support the import of images acquired without order. The clinical documentation to support these images can be found on the encounter that produced images. Provider Not In System IMG NON RAD IMAGI NG PROCEDURES IIMS NA * (ABNORMAL) Bacterial Culture, Aerobic + Susceptibility, Urine (08/01/2023 1:20 PM RECYCLE DRIVER) Urine Culture SERRATIA MARCESCENS >100,000 cfu/mL (A) 08/03/2023 7:03 AM RECYCLE DRIVER MKTO Urine (Urine, Midstream) 08/01/2023 1:20 PM RECYCLE DRIVER 08/01/2023 6:48 PM RECYCLE DRIVER Comment:Specimen Source Site : Urine Narrative Organism [...] mcg/mL: Susceptible Serratia marcescens Levofloxacin SUSCEPTIBILI TY, SAHILESH (MCG/ML) 0.5 mcg/mL: Susceptible Serratia marcescens Nitrofurantoin SUSCEPTIBILI TY, SHAILESH (MCG/ML) >=512 mcg/mL: Resistant Serratia marcescens Trimethoprim + Sulfamethoxazole SUSCEPTIBILITY, SHAILESH (MCG/ML) <=20 mcg/mL: Susceptible Ebenezer Sanchez M.D. LAB MICROBIOLOGY - G ENERAL ORDERABLES [facility] [address] [place] [address], [facility] in [place] [address] [place] [phone] from Last 3 Months Advance Directives For more information, please contact: [phone] Latest Code Status on File Code Status Date Activated Date Inactivated Comments Full Code 07/01/2023 1:09 PM Question Answer Comments Full Code: Discussed Care Teams Vending Machine Filler Relationship Specialty Start Date End Date Elsewhere, Pcp PCP - General Internal Medicine 08/11/23
--- OUTSIDE RECORDS SUMMARY | 2023-09-21 11:16 | XMS_ITS | Referral Summary ---
Author Name Unknown Organization [facility] Address [address] [place] [address] Care Team Providers Care Tennis Instructor Name Role Phone Elsewhere, Pcp Primary Care Provider Unavailabl e Source Comments Patient records contain information from all sites at [facility]. For routine questions regarding patient records, call [phone] during business hours, M-F 8:00 AM - 5:00 PM Central Time. Record requests for emergency care only can be directed to [phone] at any time.[facility] Encounters Date Type Department Care Team Description 09/01/2023 11:30 AM TALLIER Office Visit Department of Urology in [address] [phone] Antonia Krause, EDUARDO, C.N.P. Other Urethral 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 (Primary Dx); Cystitis Recurrent 08/17/2023 Clinical Communication Department of Urology in [place], [place] [address] [place] [phone] Ebenezer Sanchez M.D. 08/17/2023 Orders Only Department of Urology in [place], [place] [address] [place] [phone] Ebenezer Sanchez M.D. 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 08/12/2023 Clinical Communication Department of Urology in [place] [address] [phone] Ebenezer Sanchez M.D. 08/08/2023 Clinical Communication Department of Community Internal Medicine in [place], [place] [address] [place] [address] Arlette Nath APRN, C.N.P. 08/08/2023 2:35 PM TALLIER Ancillary Procedure Department of Urology 08/08/2023 1:30 PM TALLIER Office Visit Department of Urology in [place], [place] [address] [phone] Ebenezer Sanchez M.D. 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 08/02/2023 Orders Only Department of Urology in [address] [phone] Ebenezer Sanchez M.D. 08/01/2023 1:30 PM TALLIER - 08/01/2023 11:59 PM TALLIER Hospital Encounter Department of Laboratory Medicine in [place], [place] [address] [place] [address] Ebenezer Sanchez M.D. Urinary Tract Infection Site Not Specified; Retention Urinary Discharge Disposition: Home or Self Care 07/11/2023 Orders Only Senior Services in [facility] [address] [place] [phone] Arlette Nath APRN, C.N.P. 07/11/2023 10:00 AM TALLIER External Outreach Senior Services in [facility] [address] [phone] Victorina Cao M.D. Dunton, Peggy V., APRN, C.N.P. 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 07/04/2023 3:00 PM TALLIER External Outreach Senior Services in [place] [address] [phone] Victorina Cao M.D. 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 Hyperglycemic ([facility]); Depression Major Recurrent Moderate ([facility]); Chronic Diastolic (Congestive) Heart Failure ([facility]); Apnea Sleep Obstructive; Anemia Of Chronic Renal Disease; Cystitis Recurrent; Gastroesophageal Reflux Disease Without Esophagitis; Diabetes Mellitus Type 2 With Diabetic Neuropathy Hyperglycemic ([facility]); Other Urethral 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; Hyperlipidemia; Atrial Fibrillation Permanent ([facility]); Supervisor/Port Director (Current) Anticoagulant Treatment; Hypothyroidism On Replacement; 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 ([facility]); 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 Rate 15-29 ([facility]); Polyneuropathy; Bradycardia; Pressure Injury (Ulcer) Of Right Ankle Stage 2 ([facility]); Insomnia 06/30/2023 3:00 PM TALLIER External Outreach Senior Services in [place] [address] [phone] Arlette Nath APRN, C.N.P. Urinary Tract Infection Site Not Specified (Primary Dx); Malignant Neoplasm Of Pancreatic Duct ([facility]); Immunodeficiency ([facility]); Pressure Induced Deep Tissue Damage Of Left Buttock; Chronic Diastolic (Congestive) Heart Failure ([facility]); Depression Major Recurrent Moderate ([facility]); Diabetes Mellitus Type 2 With Other Skin Complication ([facility]); 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[facility]); Morbid Obesity ([facility]); Hyperparathyroidism Renal Secondary ([facility]); Unspecified Abnormalities Of Gait And Mobility; Pressure Injury (Ulcer) Of Right Buttock Stage 2 ([facility]); Pressure Injury (Ulcer) Of Left Buttock Stage 2 ([facility]); Pancreas Disease; Sleep Disorder; Transplant Renal ([facility]); Syncope And Collapse; Major Depressive Disorder Single Episode Unspecified; Infection Bacterial; Hypertension Secondary To Other Renal Disorders; 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 ([facility]); 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 from Last 3 Months Allergies Active [...] Active Problems Problem Noted Date Diagnosed Date Prison Use Of Insulin Active 07/04/2023 Overview: He [...] or allowed practitioner. The patient had a [id number] encounter with a physician or an allowed [...] services: Dr. Momo Nath APRN, C.N.P. 07/11/23 Cystitis Recurrent 07/04/2023 Overview: Multiple recent urine infections with some leading to hospitalization. Urology evaluation 10/18/2022 with cystoscopy suggested urethral stricture as possible contributing factor. Last Assessment & Plan: He has completed a course of IV ceftriaxone and is awaiting clearance from Infectious Disease to pull PICC line. Prison (Current) Anticoagulant Treatment 06/22 Overview: On apixaban [...] clean and dry, and return foreskin to wilton position. Returned to urology clinic in 6 [...] end-stage renal disease on dialysis Follows with [facility]. Last Assessment & Plan: He follows with renal transplant Service at the [facility]. On tacrolimus and mycophenolate. Hypertension Secondary To [...] GFR 28. Follows with renal transplant at [facility]. 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 12/17/2005 [employer] Specialist limb lab Last Assessment & Plan: He will follow up with [employer] Specialist for new shoes Resolved Problems Problem Noted [...] Complication 09/18/2020 07/01/2023 Infection Bacterial 09/17/2020 07/11/20 23 Overview: UTI on IV rocephin Last Assessment [...] Comments Blood Pressure 103/66 07/11/2023 8:54 AM TALLIER Pulse 79 07/11/2023 8:54 AM TALLIER Temperature 36.5 ??C (97.7 ??F) 07/11/2023 8:54 AM CS T Respiratory Rate 16 07/11/2023 8:54 AM TALLIER Oxygen Saturation 97% 07/11/2023 8:54 AM TALLIER Inhaled Oxygen Concentration - - Weight 134 kg (294 lb 6.4 oz) 07/11/2023 8:54 AM TALLIER Height 182.9 cm (6') 07/04/2023 6:11 PM TALLIER Body Mass Index 39.93 07/04/2023 6:11 PM TALLIER Plan of Treatment Upcoming Encounters Date Type Department Care Team (Late st Contact Info) Description 12/01/2023 11:00 AM CDT Office Visit Department of Urology in [place], [place] [address] [place] [address] Antonia Krause APRN, C.N.P. [address] [place] [phone] Procedures Procedure Name Priority Date/Time Associated Diagnosis Comments UROLOGY IMAGE EXAM Routine 08/08/2023 1: 52 PM TALLIER BACTERIAL CULTURE, AEROBIC + SUSC, URINE Routine 08/01/2023 1:20 PM TALLIER Urinary Tract Infection Site Not Specified Retention Urinary from Last 3 Months Results * CYSTOSCOPY-Urology Image Exam (08/08/2023 1:52 PM TALLIER) 08/08/2023 2:33 PM TALLIER Narrative IIMS - 08/08/2023 1:52 PM TALLIER This order has been created and auto-finalized to support the import of images acquired without order. The clinical documentation to support these images can be found on the encounter that produced images. Provider Not In System IMG NON RAD IMAGI NG PROCEDURES IIMS NA * (ABNORMAL) Bacterial Culture, Aerobic + Susceptibility, Urine (08/01/2023 1:20 PM TALLIER) Urine Culture SERRATIA MARCESCENS >100,000 cfu/mL (A) 08/03/2023 7:03 AM TALLIER MKTO Urine (Urine, Midstream) 08/01/2023 1:20 PM TALLIER 08/01/2023 6:48 PM TALLIER Comment:Specimen Source Site : Urine Narrative Organism [...] M.D. LAB MICROBIOLOGY - G ENERAL ORDERABLES [facility] [address] [place] [address], [facility] in [place] [address] [place] [address] from Last 3 Months Advance Directives For more information, please contact: [phone] Latest Code Status on File Code Status Date Activated Date Inactivated Comments Full Code 07/01/2023 1:09 PM Question Answer Comments Full Code: Discussed Care Teams Tennis Instructor Relationship Specialty Start Date End Date Elsewhere, Pcp PCP - General Internal Medicine 08/11/23
--- OUTSIDE RECORDS SUMMARY | 2023-09-21 11:17 | XMS_ITS | Encounter Summary ---
Author Name Unknown Organization [facility] Address [address] [place] [address] Care Team Providers Care Poultry Killer Name Role Phone Elsewhere, Pcp Primary Care Provider Unavailabl e Encounter Details Date Type Department Care Team (Late st Contact Info) Description 08/08/2023 Clinical Communication Department of Community Internal Medicine in [place], [place] [address] [place] [phone] Arlette Nath V., EDUARDO, C.N.P. [address] [place] [address] Social History Tobacco Use Types [...] 10:19 AM CST Surgery orders given to applications system analyst who will contact patient. Fax request for pre op from Dr. Leidy Khan has been sent, 08/17/23. RAL PRODUCTION MANAGER * Telephone Encounter - Lucille Cano R.N. - 08/17/2023 9:16 AM CST Patient now lives back home, not at [facility]. Per Tete, Dr. Forbes did a preop as patient nowwishes to be knocked out for the procedure; wants to go to the OR. Will forward to Dr. Sanchez to review and advise. Will keep August 25 appointment in case uro provider needs to discuss greater detail of procedure for surgery. RAL PRODUCTION MANAGER * Telephone Encounter - Lucille Cano R.N. - 08/17/2023 8:50 AM CST OW Uro RN has scheduled patient for urology appointment August [address] Sanchez. Will forwardto SNF and Provider Dosumu to arrange needed Eliquis instructions, urine testing and Ativan. RAL PRODUCTION MANAGER documented in this encounter Plan of Treatment Upcoming Encounters Date Type Department Care Team (Late st Contact Info) Description 12/01/2023 11:00 AM CDT Office Visit Department of Urology in [place], [place] [address] [phone] Antonia Krause APRN, C.N.P. [address] [place] [phone] documented as of this encounter Visit Diagnoses Not on filedocumented in this encounter Care Teams Poultry Killer Relationship Specialty Start Date End Date Elsewhere, Pcp PCP - General Internal Medicine 08/11/23 documented as of this encounter
--- OUTSIDE RECORDS SUMMARY | 2023-09-21 11:17 | XMS_ITS | Encounter Summary ---
Author Name Unknown Organization [facility] Address [address] [place] [address] Care Team Providers Care Salesperson [employer] Name Role Phone Dannie Davalosgumaro Kirby APRN, C.N.P., M.S.N. Primary C are Provider Encounter Details Date Type Department Care Team (Late st Contact Info) Description 08/03/2023 Orders Only Department of General Surgery in [place], [place] [address], [place] [phone] Jessica Bradley, C.N.A. [address] [place] [phone] Social History Tobacco Use Types Packs/Day [...] CDT Office Visit Department of Urology in [place], [place] [address], [place] [address] Antonia Krause APRN, C.N.P. [address] [place] [phone] documented as of this encounter Visit Diagnoses Not on filedocumented in this encounter Care Teams Salesperson [employer] Relationship Specialty Start Date End Date Manoj Davalos APRN, C.N.P., [place] [phone] PCP - General Internal Medicine 06/30/23 08/10/23 documented as of this encounter
--- OUTSIDE RECORDS SUMMARY | 2023-09-21 11:17 | XMS_ITS | Encounter Summary ---
Author Name Unknown Organization [facility] Address [address] [place] [address] Care Team Providers Care Truck Driver'S Offsider Name Role Phone Niyah Davalosanatoliy Kirby APRN, C.N.P., M.S.N. Primary C are Provider Encounter Details Date Type Department Care Team (Latest Contact Info) Description 08/01/2023 1:30 PM BANKING SPECIALIST - 08/01/2023 11:59 PM [facility] Encounter Department of Laboratory Medicine in [place], [place] [address] [place] [phone] Ebenezer Sanchez M.D. [address] [place] [phone] Urinary Tract Infection Site Not Specified; Retention [...] CDT Office Visit Department of Urology in [place], [place] [address] [place] [address] Antonia Krause APRN, C.N.P. [address], [place] [address] documented as of this encounter Procedures Procedure Name Priority Date/Time Associated Diagnosis Comments BACTERIAL CULTURE, AEROBIC + SUSC, URINE Routine 08/01/2023 1:20 PM BANKING SPECIALIST Urinary Tract Infection Site Not Specified Retention Urinary documented in this encounter Results * (ABNORMAL) Bacterial Culture, Aerobic + Susceptibility, Urine (08/01/2023 1:20 PM BANKING SPECIALIST) Urine Culture SERRATIA MARCESCENS >100,000 cfu/mL (A) 08/03/2023 7:03 AM BANKING SPECIALIST MKTO Urine (Urine, Midstream) 08/01/2023 1:20 PM BANKING SPECIALIST 08/01/2023 6:48 PM BANKING SPECIALIST Comment:Specimen Source Site : Urine Narrative Organism [...] M.D. LAB MICROBIOLOGY [place] [address], [facility] in [place] [address] [place] [address] documented in this encounter Visit Diagnoses Diagnosis Urinary Tract Infection Site Not Specified Retention Urinary documented in this encounter Care Teams Truck Driver'S Offsider Relationship Specialty Start Date End Date Manoj Davalos APRN, C.N.P., M.S.N. [address] [place] [phone] PCP - General Internal Medicine 06/30/23 08/10/23 documented as of this encounter
--- OUTSIDE RECORDS SUMMARY | 2023-09-21 11:17 | XMS_ITS | Encounter Summary ---
Author Name Unknown Organization [facility] Address [address] [place] [address] Care Team Providers Care Pilot Submersible Name Role Phone Manoj Davalos Kofi CLARK, C.N.P., M.S.N. Primary C are Provider Encounter Details Date Type Department Care Team (Late st Contact Info) Description 07/08/2023 Clinical Communication Senior Services in [facility] [address] [phone] Arlette Nath APRN, C.N.P. [address] [place] [phone] Social History Tobacco Use Types Packs/Day Years [...] Nath APRN, C.N.P. - 07/08/2023 9:15 AM IRRIGATION FLUME LAYER : 1950 ORDERS and INSTRUCTIONS: I was [...] Arlette Nath APRN, C.N.P. 07/08/23 9:15 AM IRRIGATION FLUME LAYER GATION FLUME LAYER documented in this encounter Plan of Treatment Upcoming Encounters Date Type Department Care Team (Late st Contact Info) Description 12/01/2023 11:00 AM CDT Office Visit Department of Urology in [place], [place] [address] [place] [phone] Antonia Krause APRN, C.N.P. [address] [place] [phone] documented as of this encounter Visit Diagnoses Not on filedocumented in this encounter Care Teams Pilot Submersible Relationship Specialty Start Date End Date Manoj Davalos APRN, C.N.P., M.S.N. [address] [place] [phone] PCP - General Internal Medicine 06/30/23 08/10/23 documented as of this encounter
--- OUTSIDE RECORDS SUMMARY | 2023-09-21 11:17 | XMS_ITS | Encounter Summary ---
Author Name Unknown Organization [facility] Address [address] [place] [address] Care Team Providers Care Booking Clerk Name Role Phone Manoj Davalos Kofi CLARK, C.N.P., M.S.N. 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 [address] [place] [phone] [facility] Referral ID Status Reason Start Date Expiration Date Visits Re quested Visits Authorized [id number] Closed 07/04/2023 07/03/2026 1 1 NEERING RESEARCH MANAGER * Outpatient (Routine) - Closed Specialty Diagnoses / Procedures Referred By Armaan howell Referred To Contact Urology Diagnoses Cystitis Recurrent Other Urethral 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 iVctorina Dowell M.D. [address] [place] [phone] Ebenezer Sanchez M.D. [address] [place] [phone] Referral ID Status Reason Start Date Expiration Date Visits Re quested Visits Authorized [id number] Closed 07/04/2023 07/03/2026 1 1 NEERING RESEARCH MANAGER Reason for Visit * Reason Comments Routine Assisted Visit SNF admission * Appointment Request (Routine) - Closed Specialty Diagnoses / Procedures Referred By Contac t Referred To Contact Residential Facility Referral ID Status Reason Start Date Expiration Date Visits Re quested Visits Authorized [id number] Closed 06/30/2023 06/29/2024 1 1 Encounter Details Date Type Department Care Team (Latest Contact Info) Description 07/04/2023 3:00 PM ENGINEERING RESEARCH MANAGER External Outreach Senior [facility] in [facility] [id number] [phone] Victorina Cao M.D. 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 Hyperglycemic (HCC); Depression Major Recurrent Moderate (HCC); Chronic Diastolic (Congestive) Heart Failure ([facility]); Apnea Sleep Obstructive; Anemia Of Chronic Renal Disease; Cystitis Recurrent; Gastroesophageal Reflux Disease Without Esophagitis; Diabetes Mellitus Type 2 With Diabetic Neuropathy Hyperglycemic (HCC); Other Urethral 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; Hyperlipidemia; Atrial Fibrillation Permanent (HCC); Skilled Nursing (Current) Anticoagulant Treatment; Hypothyroidism On Replacement; Amputation [...] Comments Blood Pressure 150/78 07/04/2023 6:11 PM ENGINEERING RESEARCH MANAGER Pulse 81 07/04/2023 6:11 PM ENGINEERING RESEARCH MANAGER Temperature 36.6 ??C (97.8 ??F) 07/04/2023 6:11 PM CS T Respiratory Rate 16 07/04/2023 6:11 PM ENGINEERING RESEARCH MANAGER Oxygen Saturation 95% 07/04/2023 6:11 PM ENGINEERING RESEARCH MANAGER Room air Inhaled Oxygen Concentration - - Weight 134 kg (294 lb 6.4 oz) 07/04/2023 6:11 PM ENGINEERING RESEARCH MANAGER Height 182.9 cm (6') 07/04/2023 6:11 PM ENGINEERING RESEARCH MANAGER Body Mass Index 39.93 07/04/2023 6:11 PM ENGINEERING RESEARCH MANAGER documented in this encounter Patient Instructions * Patient Instructions* Victorina Dowell M.D. - 07/04/2023 3:00 PM ENGINEERING RESEARCH MANAGER 1. Remove PICC line 2. Discontinue zolpidem 3. Please arrange for urology follow-up in the outpatient setting. He is overdue for follow-up regarding urethral stricture. 4. At discharge, he needs appointment scheduled with Dr. Forbes through [facility] in [place]. 5. CORN SHELLER OPERATOR to follow-up blood sugars next week. ORDERS and INSTRUCTIONS: Orders Placed This Encounter Return to provider in another specialty Standing Status: Future Standing Expiration Date: 10/04/2024 Referral Priority: Routine Referral Type: Outpatient Referral Location: [facility] Region Referred to Provider: Ebenezer Sanchez M.D. Number of Visits Requested: 1 Community Internal Medicine office visit (clinic) Follow-up blood sugars. Standing Status: Future Standing Expiration Date: 10/04/2024 Referral Priority: Routine Referral Type: Outpatient Referral Location: [facility] Region Number of Visits Requested: 1 melatonin 3 mg tablet Sig: Take 1 tablet (3 mg total) by mouth at bedtime. Dispense: 30 tablet Refill: 1 Electronically signed by: Victorina Dowell M.D. 07/04/23 8:55 PM ENGINEERING RESEARCH MANAGER NEERING RESEARCH MANAGER documented in this encounter H&P Notes * Victorina Dowell M.D. - 07/04/2023 3:00 PM CST CHIEF COMPLAINT / REASON FOR VISIT [facility] Admission Visit Visit Type: In Person: Face to Face Living situation prior to admission: Town home in [place] with girlfriend Primary care provider: Dr. Forbes, [facility] in [place] SUBJECTIVE HISTORY OF PRESENT ILLNESS Today's narrative history (obtained from Patient and Nursing): Diego Guthrie was admitted to [facility] on 06/29/2023 from [facility] [place]. Patient was admitted there on 06/26/2023 with [...] no evidence on imaging. 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 Anemia Of Chronic Renal Disease 3. Apnea Sleep Obstructive Refuses CPAP 4. Atrial Fibrillation Permanent (HCC) Rate control recently changed to nifedipine from carvedilol due to difficult symptomatic bradycardia. He is on apixaban for anticoagulation. Dose may be subtherapeutic. 5. Bradycardia Hospitalized for symptomatic bradycardia 06/22 to 06/24/2023. Carvedilol transitioned to nifedipine. 6. Chronic Diastolic (Congestive) Heart Failure ([facility]) He is normotensive and hemodynamically stable on his current medications 7. 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 Rate 15-29 ([facility]) In the setting of renal transplant. Most recent GFR 28. Follows with renal transplant at [facility]. 8. Cystitis Recurrent Multiple recent urine infections with some leading to hospitalization. Urology evaluation 10/18/2022 with cystoscopy suggested urethral stricture as possible contributingfactor. 9. Depression Major Recurrent Moderate ([facility]) 10. Diabetes Mellitus Type 2 With Diabetic Neuropathy Hyperglycemic ([facility]) Symptoms addressed with pregabalin. 11. 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 13. Gastroesophageal Reflux Disease Without Esophagitis 14. Hyperlipidemia On rosuvastatin in the setting of diabetes. 15. Hypertension Secondary To Other Renal Disorders Blood pressures in range on nifedipine. Potassium and torsenide 16. Hypothyroidism On Replacement 17. 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 18. Insomnia 19. Skilled Nursing (Current) Anticoagulant Treatment On apixaban in the setting of atrial fibrillation. 20. Pest Management Supervisor Use Of Insulin Active ([facility]) He uses long and short-acting insulins. 21. Morbid Obesity ([facility]) BMI Readings from Last 1 Encounters: 07/04/23 39.93 kg/m?? 22. Other Urethral 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 To evaluate recurrent urine infections, he underwent cystoscopy on 10/18/2022. 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 Recommendations at that time included: Adequate fluid intake Retract foreskin with each urination, clean and dry, and return foreskin to [place] position. Returned to urology clinic in 6 [...] pink. No drainage noted. 27. Transplant Renal ([facility]) - Primary Renal transplant 02/04/2014 to address end-stage renal disease on dialysis Follows with [facility]. 28. Weakness General This is multifactorial [...] illness and with therapies. #2 Transplant Renal ([facility]) Assessment & Plan: Follows with renal transplant Service at the [facility]. On tacrolimus and mycophenolate. #3 Pressure Injury (Ulcer) Of Right Buttock Stage 2 ([facility]) Assessment & Plan: Wound care consists of cleansing b.i.d. and as needed after bowel movements. Apply simethicone cream twice daily and PRN. #4 Pancreas Disease Assessment & Plan: Lesions noted on CT scan July 2022. Pancreas MRI recommended. It is unclear whether he has had follow-up regarding this. 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 He has had recent adjustments in attempt to improve control. Orders: - [facility] Internal [facility] office visit (clinic); Future; Expected date: 07/11/2023 #11 Depression Major Recurrent Moderate ([facility]) Assessment & Plan: On escitalopram. Most recent PHQ-9 0. #12 Chronic Diastolic (Congestive) Heart Failure ([facility]) Assessment & Plan: Renal [...] Mellitus Type 2 With Diabetic Neuropathy Hyperglycemic ([facility]) #18 Other Urethral 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 Assessment & Plan: He is due for urology follow-up, especially given hospitalization for infection. #19 Hyperlipidemia #20 Atrial Fibrillation Permanent ([facility]) #21 Skilled Nursing (Current) Anticoagulant Treatment Assessment & Plan: He [...] Disease Stage 4 Glomerular Filtration Rate 15-29 ([facility]) #25 Polyneuropathy #26 Bradycardia #27 Pressure Injury (Ulcer) Of Right Ankle Stage 2 ([facility]) Assessment & Plan: Recent [...] Disposition Planning This is a planned short-term half-way stay for rehabilitation. Patient plans to return to previous living situation at the completion of therapies. #30 Assisted Stay Justification Exam Current comorbidities, ADL need/level [...] orders to facility. Total time 70 minutes. NEERING RESEARCH MANAGER documented in this encounter Miscellaneous Notes * Assessment & Plan Note - Victorina Dowell M.D. - 07/04/2023 8:48 PM CSTAssociated Problem(s): Insomnia He is currently on zolpidem. Previous intent to discontinue. Will discontinue today. NEERING RESEARCH MANAGER * Assessment & Plan Note - Victorina Dowell M.D. - 07/04/2023 8:30 PM CSTAssociated Problem(s): Pressure Injury (Ulcer) Of Right Ankle Stage 2 (HCC) Recent culture grew MRSA. He was started on doxycycline and local cares. Wound looks much better today than previous reports. NEERING RESEARCH MANAGER * Assessment & Plan Note - Victorina Dowell M.D. - 07/04/2023 8:26 PM CSTAssociated Problem(s): Depression Major Recurrent Moderate (HCC) On escitalopram. Most recent PHQ-9 0. NEERING RESEARCH MANAGER * Assessment & Plan Note - Victorina Dowell M.D. - 07/04/2023 8:25 PM CSTAssociated Problem(s): Skilled Nursing (Current) Anticoagulant Treatment He saw Cardiology 06/23/2023 at which time it was suggested that he may be on subtherapeutic dose of apixaban. It is unclear if he has had bleeding complications. Will defer to primary in the outpatient setting. NEERING RESEARCH MANAGER * Assessment & Plan Note - Victorina Dowell M.D. - 07/04/2023 8:16 PM CSTAssociated Problem(s): Anemia Of Chronic Renal Disease Most recent hemoglobin 11.6. NEERING RESEARCH MANAGER * Assessment & Plan Note - Victorina Dowell M.D. - 07/04/2023 8:14 PM CSTAssociated Problem(s): Chronic Diastolic (Congestive) Heart Failure (HCC) Renal function has been stable on current dose of torsemide. NEERING RESEARCH MANAGER * Assessment & Plan Note - Victorina Dowell M.D. - 07/04/2023 8:13 PM CSTAssociated Problem(s): Cystitis Recurrent He has completed a course of IV ceftriaxone and is awaiting clearance from Infectious Disease to pull PICC line. NEERING RESEARCH MANAGER * Assessment & Plan Note - Victorina Dowell M.D. 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 He has had recent adjustments in attempt to improve control. NEERING RESEARCH MANAGER * Assessment & Plan Note - Victorina Dowell M.D. - 07/04/2023 8:04 PM CSTAssociated Problem(s): Hypothyroidism On Replacement Lab Results Component Value Date TSH 4.61 01/14/2023 NEERING RESEARCH MANAGER * Assessment & Plan Note - Vcitorina Dowell M.D. 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 NEERING RESEARCH MANAGER * Assessment & Plan Note - Victorina Dowell M.D. - 07/04/2023 7:58 PM CSTAssociated Problem(s): Pancreas Disease Lesions noted on CT scan July 2022. Pancreas MRI recommended. It is unclear whether he has had follow-up regarding this. NEERING RESEARCH MANAGER * Assessment & Plan Note - Victorina Dowell M.D. - 07/04/2023 7:20 PM CSTAssociated Problem(s): Pressure Injury (Ulcer) Of Right Buttock Stage 2 (HCC) Wound care consists of cleansing b.i.d. and as needed after bowel movements. Apply simethicone cream twice daily and PRN. NEERING RESEARCH MANAGER * Assessment & Plan Note - Victorina Dowell M.D. - 07/04/2023 7:17 PM CSTAssociated Problem(s): Transplant Renal (HCC) Follows with renal transplant Service at the [facility]. On tacrolimus and mycophenolate. NEERING RESEARCH MANAGER * Assessment & Plan Note - Victorina Dowell M.D. - 07/04/2023 7:15 PM CSTAssociated Problem(s): Weakness General This is expected to improve with continued resolution of acute illness and with therapies. NEERING RESEARCH MANAGER documented in this encounter Plan of Treatment Upcoming Encounters Date Type Department Care Team (Late st Contact Info) Description 12/01/2023 11:00 AM CDT Office Visit Department of Urology in [place], [place] [address] [place] [phone] Antonia Krause APRN, C.N.P. 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 Hyperglycemic (HCC) Depression Major Recurrent Moderate (HCC) Chronic Diastolic (Congestive) Heart Failure (HCC) Apnea Sleep Obstructive Anemia Of Chronic Renal Disease Cystitis Recurrent Gastroesophageal Reflux Disease Without Esophagitis Diabetes Mellitus Type 2 With Diabetic Neuropathy Hyperglycemic (HCC) Other Urethral 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 Hyperlipidemia Atrial Fibrillation Permanent (HCC) Skilled Nursing (Current) Anticoagulant Treatment Hypothyroidism On Replacement 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 [address] [place] [phone] PCP - General Internal Medicine 06/30/23 08/10/23 documented as of this encounter
--- OUTSIDE RECORDS SUMMARY | 2023-09-21 11:17 | XMS_ITS | Encounter Summary ---
Author Name Unknown Organization [facility] Address [address] [place] [address] Care Team Providers Care Assistant Speech Language Pathologist Name Role Phone Elsewhere, Pcp Primary Care Provider Unavailabl e Encounter Details Date Type Department Care Team (Late Contact Info) Description 08/16/2023 Clinical Communication Department of Urology in [place], [place] [address] [phone] Ebenezer Sanchez M.D. [address] [phone] Social History Tobacco Use Types [...] Department Care Team (Late Contact Info) Description 12/01/2023 11:00 AM CDT Office Visit Department of Urology in [place], [place] [address] [place] [phone] Antonia Krause APRN, C.N.P. [address] [phone] documented as of this encounter Visit Diagnoses Not on filedocumented in this encounter Care Teams Assistant Speech Language Pathologist Relationship Specialty Start Date End Date Elsewhere, Pcp PCP - General Internal Medicine 08/11/23 documented as of this encounter
--- OUTSIDE RECORDS SUMMARY | 2023-09-21 11:17 | XMS_ITS | Encounter Summary ---
Author Name Unknown Organization [facility] Address [address] [place] [address] Care Team Providers Care Social Problems Specialist Name Role Phone Dannie Davalosgumaro Kirby APRN, C.N.P., M.S.N. Primary C are Provider Encounter Details Date Type Department Care Team (Late Contact Info) Description 08/02/2023 Orders Only Department of Urology in [place], [place] [address] [place] [phone] Ebenezer Sanchez M.D. [address] [phone] Social History Tobacco Use Types [...] CDT Office Visit Department of Urology in [place], [place] [address], [place] [phone] Antonia Krause APRN, C.N.P. [address], [place] [phone] documented as of this encounter Visit Diagnoses Not on filedocumented in this encounter Care Teams Social Problems Specialist Relationship Specialty Start Date End Date Manoj Davalos APRN, C.N.[place]., [place] [phone] PCP - General Internal Medicine 06/30/23 08/10/23 documented as of this encounter
--- OUTSIDE RECORDS SUMMARY | 2023-09-21 11:17 | XMS_ITS | Encounter Summary ---
Author Name Unknown Organization [facility] Address [address] [place] [address] Care Team Providers Care Organ Tuner Name Role Phone Elsewhere, Pcp Primary Care Provider Unavailabl e Encounter Details Date Type Department Care Team (Late Contact Info) Description 08/12/2023 Clinical Communication Department of Urology in [place], [place] [address] [phone] Ebenezer Sanchez M.D. [address] [phone] Social History Tobacco Use Types [...] CDT Office Visit Department of Urology in [place], [place] [address] [place] [phone] Antonia Krause APRN, C.N.P. [address] [phone] documented as of this encounter Visit Diagnoses Not on filedocumented in this encounter Care Teams Organ Tuner Relationship Specialty Start Date End Date Elsewhere, Pcp PCP - General Internal Medicine 08/11/23 documented as of this encounter
--- OUTSIDE RECORDS SUMMARY | 2023-09-21 11:17 | XMS_ITS | Encounter Summary ---
Author Name Unknown Organization [facility] Address [address] [place] [address] Care Team Providers Care Organ Fixer Name Role Phone Dannie Davalosgumaro Kirby APRN, C.N.P., M.S.N. Primary C are Provider Encounter Details Date Type Department Care Team (Late st Contact Info) Description 07/11/2023 Orders Only Senior Services in [facility] [address] [phone] Arlette Nath APRN, C.N.P. [address] [facility] [place] [phone] Social History Tobacco Use Types Packs/Day Years [...] CDT Office Visit Department of Urology in [place], [place] [address] [place] [phone] Antonia Krause APRN, C.N.P. [address] [place] [phone] documented as of this encounter Visit Diagnoses Not on filedocumented in this encounter Care Teams Organ Fixer Relationship Specialty Start Date End Date Manoj Davalos APRN, C.N.P., M.S.N. [address] [place] [phone] PCP - General Internal Medicine 06/30/23 08/10/23 documented as of this encounter
--- OUTSIDE RECORDS SUMMARY | 2023-09-21 11:17 | XMS_ITS | Encounter Summary ---
Author Name Unknown Organization [facility] Address [address] [place] [address] Care Team Providers Care Blind Eyeletter Name Role Phone Susannah Manoj Kirby APRN, C.N.P., M.S.N. 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 [address] [phone] [facility] Region Referral ID Status Reason Start Date Expiration Date Visits Re quested Visits Authorized [id number] Closed 07/04/2023 07/03/2026 1 1 Encounter Details Date Type Department Care Team (Latest Contact Info) Description 07/11/2023 10:00 AM VEGETABLE PACKER External Outreach Senior [facility] in [facility] [id number] [phone] Victorina Cao M.D. 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 Hyperglycemic ([facility]); Diabetes Mellitus Type 2 With Diabetic Neuropathy Hyperglycemic ([facility]); Insomnia; Transplant Renal ([facility]); Sleep Disorder; Pressure Injury (Ulcer) Of Right Buttock Stage 2 (HCC); Pressure Injury (Ulcer) Of Right Ankle Stage 2 (HCC); Polyneuropathy; Pancreas Disease; Other Urethral 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; Morbid Obesity ([facility]); Major Depressive Disorder Single Episode Unspecified; Cardiac Surgeon Use Of Insulin Active ([facility]); Immunodeficiency Due To Conditions Classified Elsewhere ([facility]); Hypothyroidism On Replacement; Hypertension Secondary To Other Renal Disorders; Hyperlipidemia; Gastroesophageal Reflux Disease Without Esophagitis; 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[facility]); Diabetes Mellitus Type 2 Ulcer Foot ([facility]); Depression Major Recurrent Moderate ([facility]); 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 ([facility]) Social History Tobacco Use Types Packs/Day [...] Comments Blood Pressure 103/66 07/11/2023 8:54 AM VEGETABLE PACKER Pulse 79 07/11/2023 8:54 AM VEGETABLE PACKER Temperature 36.5 ??C (97.7 ??F) 07/11/2023 8:54 AM CS T Respiratory Rate 16 07/11/2023 8:54 AM VEGETABLE PACKER Oxygen Saturation 97% 07/11/2023 8:54 AM VEGETABLE PACKER Inhaled Oxygen Concentration - - Weight 134 kg (294 lb 6.4 oz) 07/11/2023 8:54 AM VEGETABLE PACKER Height - - Body Mass Index 39.93 07/04/2023 6:11 PM VEGETABLE PACKER documented in this encounter Patient Instructions * Patient Instructions* Kehinde Nath APRN, C.N.P. - 07/11/2023 10:00 AM VEGETABLE PACKER : 1950 ORDERS and INSTRUCTIONS: Face to [...] Order Specific Question: Please provide rationale Answer: [facility] resident ordered by anither provider Order Specific Question: I certify that I have reviewed and ensured compliance to the REMS program requirements outlined in the reference links Answer: No Order Specific Question: Please provide rationale Answer: prison admit ordered by another clinician potassium chloride [...] Kehinde Nath APRN, C.N.P. 07/11/23 3:41 PM VEGETABLE PACKER TABLE PACKER documented in this encounter Progress Notes * Kehinde Nath APRN, C.N.P. - 07/11/2023 10:00 AM CST CHIEF COMPLAINT / REASON FOR VISIT [facility] Discharge Visit Visit Type: In Person: Face to Face SUBJECTIVE HISTORY OF PRESENT ILLNESS Today's narrative history (obtained from Patient and Nursing): Diego Guthrie is a 73 y.o. male who underwent rehab at [facility] from 06/25/23 to 07/13/23, after being hospitalized at [facility] from 06/26/23 to 06/29/23 for UTI and [...] Unspecified Diabetic Retinopathy Without Macular Edema Hyperglycemic ([facility]) Insulin dependent Lab Results Component Value Date HGBA1C 9.1 (H) 06/23/2023 4. 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 5. Hyperlipidemia On rosuvastatin in the setting of diabetes. 6. Hypertension Secondary To Other Renal Disorders Blood pressures in range on nifedipine. Potassium and torsenide 7. 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 8. Major Depressive Disorder Single Episode Unspecified Stable on Lexapro 9. Morbid Obesity ([facility]) BMI Readings from Last 1 Encounters: [...] Disorder CHANELL refuses CPAP 13. Transplant Renal ([facility]) Renal transplant 02/04/2014 to address end-stage renal disease on dialysis Follows with [facility]. 14. Pressure Injury (Ulcer) Of Right Buttock Stage 2 ([facility]) Chronic right buttock near gluteal cleft ulcers. There are small superficial open areas. Wound bedsare clean and pink. No drainage noted. 15. 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 Cardiac Surgeon Use Of Insulin Active ([facility]) He uses long and short-acting insulins. [...] clean and dry, and return foreskin to otoe-[place] position. Returned to urology clinic in 6 [...] Unspecified Diabetic Retinopathy Without Macular Edema Hyperglycemic ([facility]) - Community Internal Medicine office visit (clinic) #2 Diabetes Mellitus Type 2 With Diabetic Neuropathy Hyperglycemic ([facility]) Assessment & Plan: Levemir up to [...] or allowed practitioner. The patient had a [id number] encounter with a physician or an allowed [...] Nath, EDUARDO, C.N.P. 07/11/23 #5 Transplant Renal ([facility]) Assessment & Plan: He follows with renal transplant Service at the [facility]. On tacrolimus and mycophenolate. #6 Sleep Disorder Assessment & Plan: He sleeps in a recliner with his head more upright #7 Pressure Injury (Ulcer) Of Right Buttock Stage 2 ([facility]) Assessment & Plan: SensaCare 2 cream is applied several times a day #8 Pressure Injury (Ulcer) Of Right Ankle Stage 2 ([facility]) Assessment & Plan: Wound has slough [...] with PCP and urology #12 Morbid Obesity ([facility]) Assessment & Plan: Maintain good nutrition for healing and health #13 Major Depressive Disorder Single Episode Unspecified Assessment & Plan: Continue lexapro #14 Group Home Use Of Insulin Active ([facility]) Assessment & Plan: He will need diabetic follow up with his PCP after discharge. 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 #21 Diabetes Mellitus Type 2 Ulcer Foot ([facility]) Assessment & Plan: He was treated for MRSA in the wound. Daily dressing changes. 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 Urology For appointment details refer [...] orders to facility. Total time 40 minutes. TABLE PACKER documented in this encounter Miscellaneous Notes * Assessment & Plan Note - Kehinde Nath APRN, C.N.P. 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 - 07/11/2023 3:38 PM CSTAssociated Problem(s): 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) He was treated for MRSA in the wound. Daily dressing changes. TABLE PACKER * Assessment & Plan Note - Kehinde Nath APRN, C.N.P. - 07/11/2023 3:37 PM CSTAssociated Problem(s): Diabetes Mellitus Type 2 With Diabetic Neuropathy (HCC) Levemir up to 42 units with Humalog sliding scale TABLE PACKER * Assessment & Plan Note - Kehinde Nath APRN, C.N.P. - 07/11/2023 3:37 PM CSTAssociated Problem(s): 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HCC) Lump under skin. TABLE PACKER * Assessment & Plan Note - Kehinde Nath APRN, C.N.P. - 07/11/2023 3:36 PM CSTAssociated Problem(s): Gastroesophageal Reflux Disease Without Esophagitis Asymptomatic with medication TABLE PACKER * Assessment & Plan Note - Kehinde Nath APRN, C.N.P. - 07/11/2023 3:35 PM CSTAssociated Problem(s): Hyperlipidemia Continue rosuvastatin TABLE PACKER * Assessment & Plan Note - Kehinde Nath APRN, C.N.P. - 07/11/2023 3:35 PM CSTAssociated Problem(s): Hypertension Secondary To Other Renal Disorders Continue current antihypertensive medications TABLE PACKER * Assessment & Plan Note - Kehinde Nath APRN, C.N.P. 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 - 07/11/2023 3:32 PM CSTAssociated Problem(s): Insomnia He is sleeping well with the melatonin TABLE PACKER * Assessment & Plan Note - Kehinde Nath APRN, C.N.P. - 07/11/2023 3:32 PM CSTAssociated Problem(s): Cardiac Surgeon Use Of Insulin Active (HCC) He will need diabetic follow up with his PCP after discharge. TABLE PACKER * Assessment & Plan Note - Kehinde Nath APRN, C.N.P. - 07/11/2023 3:31 PM CSTAssociated Problem(s): Major Depressive Disorder Single Episode Unspecified Continue lexapro TABLE PACKER * Assessment & Plan Note - Kehinde Nath APRN, C.N.P. - 07/11/2023 3:31 PM CSTAssociated Problem(s): Morbid Obesity (HCC) Maintain good nutrition for healing and health TABLE PACKER * Assessment & Plan Note - Kehinde Nath APRN, C.N.P. 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 - 07/11/2023 3:29 PM CSTAssociated Problem(s): Pancreas Disease He needs follow up with his PCP after discharge. TABLE PACKER * Assessment & Plan Note - Kehinde Nath APRN, C.N.P. - 07/11/2023 3:28 PM CSTAssociated Problem(s): Polyneuropathy Continue lyrica TABLE PACKER * Assessment & Plan Note - Kehinde [...] applied and secured with a rolled gauze. TABLE PACKER * Assessment & Plan Note - Kehinde Nath APRN, C.N.P. - 07/11/2023 3:17 PM CSTAssociated Problem(s): Pressure Injury (Ulcer) Of Right Buttock Stage 2 (HCC) SensaCare 2 cream is applied several times a day TABLE PACKER * Assessment & Plan Note - Kehinde Nath APRN, C.N.P. - 07/11/2023 3:16 PM CSTAssociated Problem(s): Sleep Disorder He sleeps in a recliner with his head more upright TABLE PACKER * Assessment & Plan Note - Kehinde Nath APRN, C.N.P. - 07/11/2023 3:16 PM CSTAssociated Problem(s): Transplant Renal (HCC) He follows with renal transplant Service at the [facility]. On tacrolimus and mycophenolate. TABLE PACKER * Assessment & Plan Note - Kehinde [...] or allowed practitioner. The patient had a [id number] encounter with a physician or an allowed [...] services: Dr. Momo Nath APRN, C.N.P. 07/11/23 TABLE PACKER * Addendum Note - Kehinde Nath APRN, C.N.P. - 07/11/2023 10:00 AM VEGETABLE PACKER Addended by: KEHINDE NATH V on: 07/11/2023 04:24 PM Modules accepted: Level of Service TABLE PACKER documented in this encounter Plan of Treatment Upcoming Encounters Date Type Department Care Team (Late st Contact Info) Description 12/01/2023 11:00 AM CDT Office Visit Department of Urology in [place], [place] [address] [phone] Antonia Krause APRN, C.N.P. 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 [address] [place] [phone] PCP - General Internal Medicine 06/30/23 08/10/23 documented as of this encounter
--- OUTSIDE RECORDS SUMMARY | 2023-09-21 11:17 | XMS_ITS | Encounter Summary ---
Author Name Unknown Organization [facility] Address [address] [place] [address] Care Team Providers Care Plant Taxonomy Teacher Name Role Phone Elsewhere, Pcp Primary Care Provider Unavailabl e Reason for Referral * Outpatient (Routine) - Authorized Specialty Diagnoses / Procedures Referred By Armaan howell Referred To Contact Urology Antonia Krause APRN, C.N.P. [address], [place] [address] [facility] Region Referral ID Status Reason Start Date Expiration Date V isits Requested Visits Authorized [id number] Authorized 09/01/2023 08/31/2026 1 1 Scheduling Instructions Nelida Sanchez CTOR SOCIAL Reason for Visit * Outpatient (Routine) - Closed Specialty Diagnoses / Procedures Referred By Armaan howell Referred To Contact Urology Ebenezer Sanchez M.D. [address], [place] [address] [facility] Region Referral ID Status Reason Start Date Expiration Date Visits Re quested Visits Authorized [id number] Closed 08/17/2023 08/16/2026 1 1 Encounter Details Date Type Department Care Team (Late st Contact Info) Description 09/01/2023 11:30 AM DIRECTOR SOCIAL Office Visit Department of Urology in [place], [place] [address], [place] [phone] Antonia Krause APRN, C.N.P. 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 - 09/01/2023 11:30 AM CST SUBJECTIVE CHIEF COMPLAINT/REASON FOR VISIT Post-op HISTORY OF PRESENT ILLNESS Diego is a pleasant 73 year old male here today for one-week follow-up after cystoscopy and urethral dilation in the operating room with Dr. Sanchez. He has completed antibiotics has prescribed, he denies any symptoms of infection at this time. The following portions of the patient's history were reviewed and updated as appropriate: allergies, current medications, family history, medical history, social history, surgical history, and problem list. REVIEW OF SYSTEMS Gastrointestinal: - Negative for constipation. Genitourinary: - Negative for incontinence, difficulty urinating, pain with urination, blood in urine, urgency andfrequent urination. 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 Provider to review Malignant Neoplasm Of Pancreatic Duct ([facility]) 07/16/2022 Malignant Neoplasm Of Skin 03/24/2021 Non-Pressure Chronic Ulcer Of Buttock With Unspecified Severity ([facility]) 08/12/2022 Non-Pressure Chronic Ulcer Of Unspecified Part Of Left Lower Leg With Unspecified Severity ([facility]) 08/12/2022 Other Dyspnea 08/12/2022 Pneumonia Due To COVID-19 06/15/2022 Polyneuropathy 12/02/2011 Syncope And Collapse Fall at home related to septic UTI Urinary Tract Infection Site Not Specified He is currently receiving Rocephin 1 GM per PICC in Left arm No past surgical history on file. No family history on file. Allergies Allergen Reactions Lisinopril Cough Current Outpatient Medications on File Prior to Visit Medication Sig Dispense Refill apixaban (ELIQUIS) 2.5 mg tablet Take 1 tablet (2.5 mg total) by mouth 2 (two) times a day. 60 tablet 0 escitalopram (LEXAPRO) 20 mg tablet Take 1 tablet (20 mg total) by mouth daily. 30 tablet 0 insulin detemir U-100 (Levemir FlexPen) 100 unit/mL (3 mL) injection Inject 42 Units under the skinat bedtime. 12.6 mL 0 insulin lispro (HumaLOG U-100 Insulin) 100 unit/mL injection Inject 42 Units under the skin 3 (three) times a day with meals. Sliding scale 150-199-3U, 200-249-6U 250-299-9U, 300-399 12U, 399+ 18 U and call MD 40 mL 0 levothyroxine (SYNTHROID, LEVOTHROID) 88 mcg tablet Take 1 tablet (88 mcg total) by mouth daily. 30tablet 0 mycophenolate (CELLCEPT) 250 mg capsule Take 3 capsules (750 mg total) by mouth every 12 (twelve) hours. 180 capsule 0 NIFEdipine (ADALAT CC) 60 mg ER tablet Take 1 tablet (60 mg total) by mouth daily. 30 tablet 0 pregabalin (LYRICA) 150 mg capsule Take 1 capsule (150 mg total) by mouth 2 (two) times a day for 10 doses. 10 capsule 0 rosuvastatin (CRESTOR) 10 mg tablet Take 1 tablet (10 mg total) by mouth at bedtime. 30 tablet 0 tacrolimus (PROGRAF) 0.5 mg capsule Take 1 capsule (0.5 mg total) by mouth 2 (two) times a day Indications: prevent kidney transplant rejection. 60 capsule 0 tamsulosin (FLOMAX) 0.4 mg 24 hr capsule Take 1 capsule (0.4 mg total) by mouth 2 (two) times a day. 60 capsule 11 torsemide 40 mg tablet Take 40 mg by mouth daily. 60 tablet 0 Current Facility-Administered Medications on File Prior to Visit Medication Dose Route Frequency Provider Last Rate Last Admin LORazepam tablet 1 mg (ATIVAN) 1 mg oral Once Ebenezer Sanchez M.D. Social History Tobacco Use Smoking status: Former Types: Cigars Smokeless tobacco: Never Vaping Use Vaping Use: never used OBJECTIVE There were no vitals filed for this visit. PHYSICAL EXAM Vitals and nursing note reviewed. General: Well developed, well nourished, well groomed male in no acute distress. Neurological: Alert, cooperative, oriented x3. Appropriate mood and affect. Abdomen: Soft, non-tender, non-distended DIAGNOSTIC Uroflow is performed utilizing calibrated electronic equipment. Patient voided 90 mL over 16 seconds. Peak flow 13 mL/sec, average flow 6 mL/sec. Postvoid residual by bladder scan 62 mL. ASSESSMENT / PLAN 1. 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 Cystitis Recurrent We discussed importance of continuing to drink extra fluids. We discussed that strictures can recur, they will monitor this closely. We discussed signs and symptoms of urinary tract infection, we discussed that we should only test if he is having symptoms. We will have him return to clinic in 2-3 months for follow- up with uroflow and postvoid residual. All questions answered. Signed by: Antonia Krause APRN, C.N.P. 09/19/2023 8:03 AM DIRECTOR SOCIAL CTOR SOCIAL documented in this encounter Plan of Treatment Upcoming Encounters Date Type Department Care Team (Late st Contact Info) Description 12/01/2023 11:00 AM CDT Office Visit Department of Urology in [place], [place] [address] [place] [phone] Antonia Krause APRN, C.N.P. 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
--- OUTSIDE RECORDS SUMMARY | 2023-09-21 11:17 | XMS_ITS | Encounter Summary ---
Author Name Unknown Organization [facility] Address [address] [place] [address] Care Team Providers Care Drug Discovery Informatics Specialist Name Role Phone Elsewhere, Pcp Primary Care Provider Unavailabl e Encounter Details Date Type Department Care Team (Late Contact Info) Description 08/17/2023 Clinical Communication Department of Urology in [place], [place] [address] [phone] Ebenezer Sanchez M.D. [address] [phone] Social History Tobacco Use Types [...] CDT Office Visit Department of Urology in [place], [place] [address] [place] [phone] Antonia Krause APRN, C.N.P. [address] [phone] documented as of this encounter Visit Diagnoses Not on filedocumented in this encounter Care Teams Drug Discovery Informatics Specialist Relationship Specialty Start Date End Date Elsewhere, Pcp PCP - General Internal Medicine 08/11/23 documented as of this encounter
--- OUTSIDE RECORDS SUMMARY | 2023-09-21 11:17 | XMS_ITS | Encounter Summary ---
Author Name Unknown Organization [facility] Address [address] [place] [address] Care Team Providers Care Commercial Escrow Officer Name Role Phone Niyah Davalosanatoliy Kirby APRN, C.N.P., M.S.N. Primary C are Provider Encounter Details Date Type Department Care Team (Late Contact Info) Description 08/08/2023 2:35 PM GEOPHYSICAL PARTY CHIEF Ancillary Procedure Department of Urology Social History [...] CDT Office Visit Department of Urology in [place], [place] [address] [place] [phone] Antonia Krause APRN, C.N.P. [address], [place] [phone] documented as of this encounter Procedures Procedure Name Priority Date/Time Associated Diagnosis Comments UROLOGY IMAGE EXAM Routine 08/08/2023 1: 52 PM GEOPHYSICAL PARTY CHIEF documented in this encounter Results * CYSTOSCOPY-Urology Image Exam (08/08/2023 1:52 PM GEOPHYSICAL PARTY CHIEF) 08/08/2023 2:33 PM GEOPHYSICAL PARTY CHIEF Narrative IIMS - 08/08/2023 1:52 PM GEOPHYSICAL PARTY CHIEF This order has been created and auto-finalized to support the import of images acquired without order. The clinical documentation to support these images can be found on the encounter that produced images. Provider Not In System IMG NON RAD IMAGI NG PROCEDURES IIMS NA documented in this encounter Visit Diagnoses Not on filedocumented in this encounter Care Teams Commercial Escrow Officer Relationship Specialty Start Date End Date Manoj Davalos APRN, C.N.P., M.S.N. [address] [place] [phone] PCP - General Internal Medicine 06/30/23 08/10/23 documented as of this encounter
--- OUTSIDE RECORDS SUMMARY | 2023-09-21 11:17 | XMS_ITS | Encounter Summary ---
Author Name Unknown Organization [facility] Address [address] [place] [address] Care Team Providers Care Plumbing Warehouse Helper Name Role Phone Elsewhere, Pcp Primary Care Provider Unavailabl e Reason for Referral * Outpatient (Routine) - Closed Specialty Diagnoses / Procedures Referred By Armaan howell Referred To Contact Urology Ebenezer Sanchez M.D. 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 [address] [place] [phone] [facility] Region Referral ID Status Reason Start Date Expiration Date V isits Requested Visits Authorized [id number] Authorized 08/17/2023 08/16/2024 1 1 TATION OPERATOR CHIEF Encounter Details Date Type Department Care Team (Late st Contact Info) Description 08/17/2023 Orders Only Department of Urology in [place], [place] [address] [phone] Ebenezer Sanchez M.D. 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 [address] [phone] Scheduled Orders Name Type Priority Associated Diagnoses [...] Primary documented in this encounter Care Teams Plumbing Warehouse Helper Relationship Specialty Start Date End Date Elsewhere, Pcp PCP - General Internal Medicine 08/11/23 documented as of this encounter
--- OUTSIDE RECORDS SUMMARY | 2023-09-21 11:17 | XMS_ITS ---
Author Name Unknown Organization [facility] Address [address] [place] [address] Care Team Providers Care Wrapper And Preserver Name Role Phone Unavailable Unavailable Unavailable Surgery Details Not on file Complications Check Surgery Details section. Procedure Estimated Blood Loss Check Surgery Details section. Procedure Findings Check Surgery Details section. Procedure Specimens Taken Check Surgery Details section.
--- OUTSIDE RECORDS SUMMARY | 2023-09-21 11:17 | XMS_ITS | Encounter Summary ---
Author Name Unknown Organization [facility] Address [address] [place] [address] Care Team Providers Care Anatomy Teacher Name Role Phone Niyah Davalosanatoliy Kirby APRN, C.N.P., M.S.N. 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 [address] [phone] Ebenezer Sanchez M.D. [address] [phone] Referral ID Status Reason Start Date Expiration Date V isits Requested Visits Authorized [id number] Authorized 08/08/2023 08/07/2024 1 1 ICAL TRIALS ASSISTANT Reason for Visit * Reason Comments Procedure * Appointment Request (Routine) - Closed Specialty Diagnoses / Procedures Referred By Contac t Referred To Contact Urology Referral ID Status Reason Start Date Expiration Date Visits Re quested Visits Authorized [id number] Closed 05/09/2023 05/08/2024 1 1 Encounter Details Date Type Department Care Team (Late st Contact Info) Description 08/08/2023 1:30 PM CLINICAL TRIALS ASSISTANT Office Visit Department of Urology in [place], [place] [address] [phone] Ebenezer Sanchez M.D. 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 He will need to have a power screwdriver operator. We will ask him to discontinue the [...] tract. Ebenezer Sanchez M.D. 08/08/23 2:09 PM CLINICAL TRIALS ASSISTANT ICAL TRIALS ASSISTANT documented in this encounter Plan of Treatment Upcoming Encounters Date Type Department Care Team (Late st Contact Info) Description 12/01/2023 11:00 AM CDT Office Visit Department of Urology in [place], [place] [address] [phone] Antonia Krause APRN, C.N.P. 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 [address] [place] [phone] PCP - General Internal Medicine 06/30/23 08/10/23 documented as of this encounter
--- OUTSIDE RECORDS SUMMARY | 2023-09-21 11:18 | XMS_ITS | Encounter Summary ---
Author Name Unknown Organization [facility] Address [address] [place] [address] Care Team Providers Care Director Of Corporate Communications Name Role Phone Susannah Manoj Kirby APRN, C.N.P., M.S.N. Primary C are Provider Reason for Visit * Appointment Request (Routine) - Closed Specialty Diagnoses / Procedures Referred By Armaan t Referred To Contact Custodial Facility Referral ID Status Reason Start Date Expiration Date Visits Re quested Visits Authorized [id number] Closed 06/30/2023 06/29/2024 1 1 Encounter Details Date Type Department Care Team (Latest Contact Info) Description 06/30/2023 3:00 PM SEWING MACHINE OPERATOR PAPER BAGS External Outreach [facility] in [facility] [id number], [place] [phone] Arlette Nath APRN, C.N.P. [address] [place] [phone] Urinary Tract Infection Site Not Specified (Primary [...] (HCC); Diabetes Mellitus Type 2 Ulcer Foot ([facility]) Social History Tobacco Use Types Packs/Day Years [...] Comments Blood Pressure 132/66 06/30/2023 3:58 PM SEWING MACHINE OPERATOR PAPER BAGS Pulse 74 06/30/2023 3:58 PM SEWING MACHINE OPERATOR PAPER BAGS Temperature 36.5 ??C (97.7 ??F) 06/30/2023 3:58 PM CS T Respiratory Rate 18 06/30/2023 3:58 PM SEWING MACHINE OPERATOR PAPER BAGS Oxygen Saturation 96% 06/30/2023 3:58 PM SEWING MACHINE OPERATOR PAPER BAGS Inhaled Oxygen Concentration - - Weight 135 kg (296 lb 9.6 oz) 06/30/2023 3:58 PM SEWING MACHINE OPERATOR PAPER BAGS Height - - Body Mass Index - - documented in this encounter Patient Instructions * Patient Instructions* Arlette Nath V., EDUARDO, C.N.P. - 06/30/2023 3:00 PM SEWING MACHINE OPERATOR PAPER BAGS : 1950 ORDERS and INSTRUCTIONS: Medication Reconciliation/Admit [...] Order Specific Question: Please provide rationale Answer: [facility] resident ordered by anither provider Order Specific Question: I certify that I have reviewed and ensured compliance to the REMS program requirements outlined in the reference links Answer: No Order Specific Question: Please provide rationale Answer: [facility] admit ordered by another clinician DISCONTD: potassium [...] Arlette Nath APRN, C.NArsh 07/01/23 3:52 PM SEWING MACHINE OPERATOR PAPER BAGS NG MACHINE OPERATOR PAPER BAGS documented in this encounter H&P Notes * Arlette Nath APRN, C.NArsh - 06/30/2023 3:00 PM CST CHIEF COMPLAINT / REASON FOR VISIT [facility] Admission / Medication Reconciliation Visit Visit Type: In Person: Face to Face Hospital: [facility] Admit: 06/26/23 Discharge: 06/29/23 Full Code SUBJECTIVE [...] renal transplant. Right kidney in 2013 at [facility]. He was on dialysis for short period and a left leg amputation due to infection of his foot. He had hematuria and a UTI. Staff at [facility] contacted [facility] transplant and rocephin 1 gm [...] nursing note reviewed. Exam conducted with a information assurance present. Constitutional Appearance: He is obese. HENT [...] recliner at home and now in the jail. He had been on Ambien a few [...] #16 Transplant Renal (HCC) Assessment & Plan: [facility] [address] [place] [phone] Gretta Peacock RN Professor Of Exercise Science. 06/27/2023 TACROLIMUS 4.5 DATE OF LAST DOSE,TACROLIMUS 06/26/2023 TIME OF LAST DOSE,TACROLIMUS 5:49 PM #17 Syncope And Collapse Assessment & Plan: He walks with a walker. He has left BKA left side with prosthesis and built up shoes bilaterally #18 Major Depressive Disorder Single Episode Unspecified Assessment & Plan: skidway worker will monitor PHQ-9 #19 Infection Bacterial [...] at [facility] on his way to the jail from [facility]. 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 Wound has inner elim ira of slough with erythema in the periwound [...] orders to facility. Total time 44 minutes. NG MACHINE OPERATOR PAPER BAGS documented in this encounter Miscellaneous Notes * Assessment & Plan Note - Arlette Nath APRN, C.N.P. - 07/01/2023 3:50 PM CSTAssociated Problem(s): 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) Wound measures 1,.4 cm x 1 cm and 0,2 cm deep. Wound has inner elim ira of slough with erythema in the periwound carmona. Wound was cleansed with saline and dried Wound culture obtained. Santyl will be applied to wound bed, covered with sterile 2 x 2 gauze and island dressing Change daily NG MACHINE OPERATOR PAPER BAGS * Assessment & Plan Note - Arlette Nath APRN, C.N.P. - 07/01/2023 3:45 PM CSTAssociated Problem(s): Chronic Diastolic (Congestive) Heart Failure (HCC) Continue current plans NG MACHINE OPERATOR PAPER BAGS * Assessment & Plan Note - Arlette Nath APRN, C.N.P. - 07/01/2023 3:42 PM CSTAssociated Problem(s): Anxiety Generalized Disorder Nursing to monitor anxiety NG MACHINE OPERATOR PAPER BAGS * Assessment & Plan Note - Arlette Nath APRN, C.N.P. - 07/01/2023 3:41 PM CSTAssociated Problem(s): Apnea Sleep Obstructive Nursing will monitor O2 Sats and apply oxygen to keep sats greater than 90% NG MACHINE OPERATOR PAPER BAGS * Assessment & Plan Note - Arlette Nath APRN, C.N.P. 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 He stopped at [facility] on his way to the jail from [facility]. NG MACHINE OPERATOR PAPER BAGS * Assessment & Plan Note - Arlette Nath APRN, C.N.P. - 07/01/2023 3:35 PM CSTAssociated Problem(s): 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HCC) Fistula not used since renal transplant NG MACHINE OPERATOR PAPER BAGS * Assessment & Plan Note - Arlette Nath APRN, C.N.P. 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 NG MACHINE OPERATOR PAPER BAGS * Assessment & Plan Note - Arlette Nath APRN, C.N.P. - 07/01/2023 3:29 PM CSTAssociated Problem(s): Infection Bacterial (Resolved 07/11/2023) He will complete the course of rocephin. cefTRIAXone (ROCEPHIN) 1 gram injection Indications: Urinary tract infection without hematuria, site unspecified Inject 1,000 mg intravenous every 24 hours for 4 days. 4 g 0 06/29/2023 07/03/2023 NG MACHINE OPERATOR PAPER BAGS * Assessment & Plan Note - Arlette Nath APRN, C.N.P. - 07/01/2023 3:24 PM CSTAssociated Problem(s): Major Depressive Disorder Single Episode Unspecified skidway worker will monitor PHQ-9 NG MACHINE OPERATOR PAPER BAGS * Assessment & Plan Note - Arlette Nath APRN, C.N.P. - 07/01/2023 3:23 PM CSTAssociated Problem(s): Syncope And Collapse (Resolved 07/11/2023) He walks with a walker. He has left BKA left side with prosthesis and built up shoes bilaterally NG MACHINE OPERATOR PAPER BAGS * Assessment & Plan Note - Arlette Nath APRN, C.N.P. - 07/01/2023 3:20 PM CSTAssociated Problem(s): Transplant Renal (HCC) [facility] [address] [place] [phone] Gretta Peacock RN Professor Of Exercise Science. 06/27/2023 TACROLIMUS 4.5 DATE OF LAST DOSE,TACROLIMUS 06/26/2023 TIME OF LAST DOSE,TACROLIMUS 5:49 PM NG MACHINE OPERATOR PAPER BAGS * Assessment & Plan Note - Arlette Nath APRN, C.N.P. - 07/01/2023 2:28 PM CSTAssociated Problem(s): Sleep Disorder Sleeps in recliner at home and now in the jail. He had been on Ambien a few times a week at home. The Ambien was ordered upon admit. Ambien was discontinued.It is an inappropriate medication for people 65 and older. It can cause vivid dreams and sleep walking. Nursing will monitor his O2 sats during the night and apply oxygen per NC per standing orders if sats go below 90 %\. NG MACHINE OPERATOR PAPER BAGS * Assessment & Plan Note - Arlette Nath APRN, C.N.P. - 07/01/2023 2:15 PM CSTAssociated Problem(s): Pancreas Disease No recent scans. He has a care conference scheduled next week. We will need to find out what he would like for follow up for his plan of care regarding the pancreas and lung nodules. NG MACHINE OPERATOR PAPER BAGS * Assessment & Plan Note - Arlette Nath APRN, C.N.P. - 07/01/2023 2:00 PM CSTAssociated Problem(s): Pressure Injury (Ulcer) Of Right Buttock Stage 2 (HCC) Wounds will be cleansed with water and dried bid and prn. Dimethicone cream will be applied bid andprn NG MACHINE OPERATOR PAPER BAGS * Assessment & Plan Note - Arlette Nath APRN, C.N.P. - 07/01/2023 1:56 PM CSTAssociated Problem(s): Urinary Tract Infection Site Not Specified (Resolved 07/11/2023) He is tolerating the medication well. NG MACHINE OPERATOR PAPER BAGS * Assessment & Plan Note - Arlette Nath APRN, C.N.P. 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 NG MACHINE OPERATOR PAPER BAGS * ACP (Advance Care Planning) - Arlette Nath APRN, C.N.P. - 06/30/2023 3:00 PM CST Advance Care Planning Reason for Conversation This patient is a 73 y.o. year old male that presents for [facility] Medication Reconciliation /Admit. 1. Patient has understanding [...] He will be full code in the jail NG MACHINE OPERATOR PAPER BAGS documented in this encounter Plan of Treatment Upcoming Encounters Date Type Department Care Team (Late st Contact Info) Description 12/01/2023 11:00 AM CDT Office Visit Department of Urology in [place], [place] [address] [place] [phone] Antonia Krause APRN, C.N.P. [address], [place] [phone] documented as of this encounter [...] (HCC) documented in this encounter Care Teams Director Of Corporate Communications Relationship Specialty Start Date End Date Manoj Davalos APRN, C.N.P., M.S.N. [address] [place] [phone] PCP - General Internal Medicine 06/30/23 08/10/23 documented as of this encounter
--- OUTSIDE RECORDS SUMMARY | 2023-09-21 11:18 | XMS_ITS | Clinical Summary ---
Author Name Unknown Organization [employer] [facility]ly [facility] Address [place], [place] [address] Care Team Providers Care Annual Giving Manager Name Role Phone Momo Forbes MD Primary Care Provider + [facility] [place] Unavailable [phone] Allergies Active Allergy Reactions Criticality Noted Date Comments Lisinopril Cough 08/17/2023 Medications Medication Sig Dispensed Refills Start Date End Date Status mycophenolate (CELLCEPT) 250 mg capsuleIndications:D eceased-donor kidney transplant recipient Take 3 capsules by mouth every 12 hours. 0 06/03/2016 Active rosuvastatin (CRESTOR) 10 mg tabletIndications:Hy perlipidemia, unspecified hyperlipidemia type TAKE ONE TABLET BY MOUTH EVERY DAY AT BEDTIME 90 tablet 1 07/11/2018 Active escitalopram oxalate (LEXAPRO) 20 mg tablet Take 20 mg by mouth once daily. 0 Active tacrolimus (PROGRAF) 0.5 mg capsule Take 0.5 mg by mouth two times daily. 0 Active tamsulosin (FLOMAX) 0.4 mg capsule Take 0.4 mg by mouth two times daily. 0 11/02/2021 Active Levemir FlexTouch U100 Insulin 100 unit/mL (3 mL) pen Inject 40 units subcutaneous before bedtime. 0 Active levothyroxine (SYNTHROID) 88 mcg tablet Take 88 mcg by mouth once daily. 0 05/06/2023 Active pantoprazole (PROTONIX) 40 mg delayed-release tablet Take 40 mg by mouth once daily. 0 Active pregabalin (LYRICA) 150 mg capsule Take 150 mg by mouth two times daily. 0 05/29/2023 Active torsemide (DEMADEX) 20 mg tablet Take 40 mg (2 tab) by mouth every morning and 20 mg (1 tab) at 12:00 noon. 0 Active zolpidem (AMBIEN) 10 mg tablet Take 10 mg by mouth once daily if needed for Sleep. 0 2023 Active Eliquis 2.5 mg tabletIndications:Ch ronic atrial fibrillation (HC) Take 1 Tablet (2.5 mg) by mouth two times daily. 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 10 mL 0 06/29/2023 Active pregabalin (LYRICA) 50 mg capsuleIndications:N europathy Take 1 Capsule (50 mg) by mouth three times daily. 30 Capsule 0 06/29/2023 Active Additional Information Patient taking differently:50 mg OralBID, Reported on 08/17/2023 LORazepam (ATIVAN) 1 mg tablet Take 1 mg by mouth at bedtime if needed. 0 08/08/2023 Active carvediloL (COREG) 6.25 mg tablet Take 6.25 mg by mouth two times daily with meals. 0 Active Active Problems Problem Noted Date Diagnosed [...] 05/31/2009 03/05/2010 Depressive disorder, not elsewhere classified 10/06/1905/15/2008 Overview: Unwilling to take meds. FOOT ULCER 12/14/2005 07/30/2006 Unspecified essential hypertension 12/14/2005 10/17/2013 Anemia, unspecified 12/14/2005 07/30/20 06 RENAL INSUFFICIENCY 12/14/2005 05/31/20 09 STAPH AUREUS BACTEREMIA 12/14/200504/2006 Encounters Date Type Department Care Team Description 09/16/[address] [place] [address] iDonicio Callahan MD Results (Stress test) 09/09/2023 11:50 AM SHRIMP PEELER - 09/09/2023 11:59 PM SHRIMP PEELER Hospital Encounter [facility] [address] [place] [address] Dionicio Callahan MD LVH (left ventricular hypertrophy); Chronic atrial fibrillation (HC) 09/09/2023 Travel 09/08/[address] [address] Momo Forbes MD UPDATE (UPDATES FROM VISIT ON 09/08/2023); Error-please disregard 08/31/[address] [place] [address] Dionicio Callahan MD Results 08/24/2023 10:15 AM SHRIMP PEELER Anesthesia Event [facility] [address] [place] [address] Kendell Ontiveros III, MD Fields, Robert Lee, DO 08/24/2023 10:02 AM SHRIMP PEELER - 08/24/2023 11:06 AM SHRIMP PEELER Surgery [facility] [address] [address] Ebenezer Sanchez MD CYSTOSCOPY DILATION URETHRA 08/24/2023 8:34 AM SHRIMP PEELER - 08/24/2023 12:30 PM SHRIMP PEELER Hospital Encounter [facility] [address] [address] Ebenezer Sanchez MD Discharge Disposition: Home Self Care 08/24/2023 Travel 08/11/2023 9:00 AM SHRIMP PEELER Ancillary Procedure [address] [address] 08/02/[address] [place] [address] Dionicio Callahan MD Follow Up 07/29/2023 11:00 AM SHRIMP PEELER Office Visit [address] [address] Dionicio Callahan MD 07/03/2023 Lab Requisition [address] [address] Victorina Cao MD 06/30/2023 Lab Requisition [place] [id number] [place] [address] Victorina Cao MD 06/29/2023 Orders Only [facility] [address] [place] [address] Sloan Carlos NP <No scans attached> 06/29/2023 Orders Only [facility] [address] [place] [address] Sloan Carlos NP <No scans attached> 06/27/2023 Home Care Visit [facility] [address] [place] [address] Henrique Little, PT NOT TAKEN UNDER HOME CARE 06/26/2023 1:27 PM SHRIMP PEELER - 06/29/2023 11:10 AM SHRIMP PEELER Hospital Encounter [facility] [address] [place] [address] Radha Francois, Sloan Mendenhall, Nadiya Mike MD Urinary tract infection without hematuria, site unspecified (Primary Dx); Weakness; Acute renal failure superimposed on chronic kidney disease, unspecified acute renal failure type, unspecified CKD stage (HC); 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 [address] [facility] [address] [place] [address] Dionicio Callahan MD 06/22/2023 2:30 PM CDT - 06/24/2023 5:10 PM CDT Hospital Encounter [address] [address] Gema Valdovinos MD Estharabadi, Navid, DO Elsenheimer Plutt, Megan Maureen, DO Nguyen, Thao Nguyen L, Sloan Abbasi, Nadiya Mike MD Symptomatic bradycardia (Primary Dx); TIA (transient [...] Comments Blood Pressure 168/95 08/24/2023 12:20 PM SHRIMP PEELER Pulse 62 08/24/2023 12:20 PM SHRIMP PEELER Temperature 36.7 ??C (98 ??F) 08/24/2023 11: 35 AM SHRIMP PEELER Respiratory Rate 18 08/24/2023 12:2 0 PM SHRIMP PEELER Oxygen Saturation 98% 08/24/2023 12: 20 PM SHRIMP PEELER Inhaled Oxygen Concentration - - Weight 138.5 kg (305 lb 6.4 oz) 08/24/2023 8:57 AM SHRIMP PEELER Height 182.9 cm (6') 06/26/2023 1:29 PM SHRIMP PEELER Body Mass Index 41.42 06/26/2023 1:29 PM SHRIMP PEELER Plan of Treatment Upcoming Encounters Date Type Department Care Team (Late st Contact Info) Description 09/23/2023 11:00 AM SHRIMP PEELER Office Visit [facility] [address] [place] [address] Danica Murphy MD [address] [facility] [address] [place], [place] [address] 09/29/2023 10:00 AM SHRIMP PEELER Office Visit [facility] [address] [facility] [address] [place] [address] Aleksandr Anguiano MD [address] [place], [place] [phone] Health Maintenance Due Date Last Done Comments [...] MAINTAINS BP less than 140/90 Blood Pressure No Momo Forbes MD Medical Devices Implanted Type Area Binder Coverstitch Device Identifier Shelf Expiration Date Model / Serial / Lot Drsg Wound 4x5in Matrix Bilayer Implanted:Qty: 1 on 09/23/2020 by Araceli Amaro DPM at [facility] Right: Foot 08/21/2020 [id number] / / [id number] Description:DRSG WOUND 4X5IN MATRIX BILAYER Procedures Procedure Name Priority Date/Time Associated Diagnosis Comments NM CARDIAC AMYLOID TC PYP Routine 09/09/2023 2:52 PM SHRIMP PEELER LVH (left ventricular hypertrophy) Chronic atrial fibrillation (HC) GLUCOSE METER Routine 08/24/2023 11:10 AM SHRIMP PEELER SUPRAGLOTTIC-LMA Routine 08/24/2023 10:2 7 AM SHRIMP PEELER CYSTOSCOPY DILATION URETHRA 08/24/2023 10:15 AM SHRIMP PEELER same Case Notes MRSAType 1 DMPatient would like early in the morning Special Needs [id number] MRSA/SA PCR Timed 08/24/2023 9:00 AM SHRIMP PEELER NM CARDIAC MPI STRESS TEST Routine 08/11/2023 1:13 PM SHRIMP PEELER Chest pain, unspecified type PLATELET ESTIMATE Routine 07/04/2023 6:3 3 AM SHRIMP PEELER Acute cystitis with hematuria CBC WITH AUTO DIFFERENTIAL Routine 07/04/2023 6:33 AM SHRIMP PEELER Acute cystitis with hematuria COMP METABOLIC PANEL Routine 07/04/2023 6:33 AM SHRIMP PEELER Acute cystitis with hematuria CBC WITH AUTO DIFFERENTIAL Routine 07/04/2023 6:33 AM SHRIMP PEELER Acute cystitis with hematuria AEROBIC BACTERIAL CULTURE, STAIN Routine 06/30/2023 12:15 PM SHRIMP PEELER Pressure ulcer of right ankle, unstageable (HC) GLUCOSE METER Routine 06/29/2023 8:10 AM SHRIMP PEELER CREATININE Early AM 06/29/2023 5:50 AM SHRIMP PEELER SODIUM Early AM 06/29/2023 5:50 AM SHRIMP PEELER POTASSIUM Early AM 06/29/2023 5:50 AM SHRIMP PEELER XR CHEST 1 VIEW PORTABLE STAT 06/28/2023 11:37 PM SHRIMP PEELER XR CHEST 1 VIEW PORTABLE STAT 06/28/2023 11:37 PM SHRIMP PEELER GLUCOSE METER Routine 06/28/2023 9:57 PM SHRIMP PEELER GLUCOSE METER Routine 06/28/2023 5:05 PM SHRIMP PEELER GLUCOSE METER Routine 06/28/2023 11:35 AM SHRIMP PEELER SCAN-CARDIAC STRIP 06/28/2023 8: 18 AM SHRIMP PEELER GLUCOSE METER Routine 06/28/2023 7:46 AM SHRIMP PEELER ALBUMIN Early AM 06/28/2023 5:53 AM SHRIMP PEELER ALT (SGPT) Early AM 06/28/2023 5:53 AM SHRIMP PEELER CREATININE Early AM 06/28/2023 5:53 AM SHRIMP PEELER POTASSIUM Early AM 06/28/2023 5:53 AM SHRIMP PEELER SODIUM Early AM 06/28/2023 5:53 AM SHRIMP PEELER GLUCOSE METER Routine 06/27/2023 8:48 PM SHRIMP PEELER GLUCOSE METER Routine 06/27/2023 3:59 PM SHRIMP PEELER GLUCOSE METER Routine 06/27/2023 9:41 AM SHRIMP PEELER MYCOPHENOLIC ACID (MPA) AND METABOLITE Today 06/27/2023 9:00 AM SHRIMP PEELER TACROLIMUS (UMN) TACR Today 06/27/2023 9:00 AM SHRIMP PEELER SCAN-CARDIAC STRIP 06/27/2023 8: 35 AM SHRIMP PEELER PLATELET COUNT Early AM 06/27/2023 5:57 AM SHRIMP PEELER HEPATIC FUNCTION PANEL Early AM 06/27/2023 5:57 AM SHRIMP PEELER HEMOGLOBIN Early AM 06/27/2023 5:57 AM SHRIMP PEELER WHITE BLOOD COUNT Early AM 06/27/2023 5:5 7 AM SHRIMP PEELER MAGNESIUM Early AM 06/27/2023 5:57 AM SHRIMP PEELER CREATININE Early AM 06/27/2023 5:57 AM SHRIMP PEELER POTASSIUM Early AM 06/27/2023 5:57 AM SHRIMP PEELER SODIUM Early AM 06/27/2023 5:57 AM SHRIMP PEELER GLUCOSE METER Routine 06/26/2023 8:49 PM SHRIMP PEELER SCAN-CARDIAC STRIP 06/26/2023 6: 30 PM SHRIMP PEELER GLUCOSE METER Routine 06/26/2023 5:[address] HEAD BRAIN WO STAT 06/26/2023 4:23 PM SHRIMP PEELER TROPONIN T (HS) ONE TIME Timed 06/26/2023 4:06 PM SHRIMP PEELER XR CHEST 1 VIEW PORTABLE STAT 06/26/2023 2:28 PM SHRIMP PEELER EKG 12 LEAD STAT 06/26/2023 2:15 PM SHRIMP PEELER LACTATE VENOUS Today 06/26/2023 2:03 PM SHRIMP PEELER CBC WITH AUTO DIFFERENTIAL STAT 06/26/2023 1:58 PM SHRIMP PEELER TROPONIN T (HS) ACUTE W/2HR REFLEX STAT 06/26/2023 1:58 PM SHRIMP PEELER COMP METABOLIC PANEL STAT 06/26/2023 1:58 PM SHRIMP PEELER CBC WITH AUTO DIFFERENTIAL STAT 06/26/2023 1:58 PM SHRIMP PEELER URINE CULTURE JOVANNI 06/26/2023 1:47 PM SHRIMP PEELER URINALYSIS MICROSCOPIC STAT 06/26/2023 1:47 PM SHRIMP PEELER UA W/ SEDIMENT EXAM REFLEXED PER CRITERIA STAT 06/26/2023 1:47 PM SHRIMP PEELER SCAN-CARDIAC STRIP 06/24/2023 4: 52 PM CDT [...] CDT from Last 3 Months Results * NM CARDIAC AMYLOID TC PYP (09/09/2023 2:52 PM SHRIMP PEELER) Anatomical Region Laterality Modality Nuclear Medicine Impressions 09/10/2023 11:29 AM SHRIMP PEELER HMDP imaging was normal. Visual score was 0. This study is NOT suggestive of transthyretin-related cardiac amyloidosis (ATTR). (visual score 0 OR H/CL ratio <1). Other types of amyloid (i.e. AL amyloid) are not excluded. If echo/CMR are strongly positive for ATTR and 99mTc-HMDP imaging is negative, consider further evaluation including endomyocardial biopsy. There was no evidence of extracardiac activity. There were no prior studies available for comparison. CARDIAC PYP PROCEDURE: This patient received 14.8 mCi 99m Tc-HMDP. ??Anterior and left lateral resting planar imaging was performed 170 minutes post IV injection. FINDINGS: The overall quality of the study was excellent. Visual scoring was 0 ?0=absent cardiac uptake ?1=mild uptake less than rib uptake ?2=moderate uptake equal to rib uptake ?3=high uptake greater than rib uptake with mild/absent rib uptake There was no evidence of extracardiac activity. This study was interpreted by: Elie Brandon MD ? Cardiology This study was performed by an [facility] Nuclear/PET Accredited Facility (Releasing physician is signing physician) Narrative 09/10/2023 11:29 AM SHRIMP PEELER Patient name: Elinor Guthrie ? Study date: September 09, 2023 [facility] CARDIAC AMYLOID IMAGING REPORT [facility] Nuclear Imaging INDICATION: LVH. Chronic atrial fibrillation. 73 y.o. male HEIGHT: 6 feet 0 inches ?WEIGHT: 305 pounds HISTORY: abnormal ECG. OTHER SYMPTOMATOLOGY INCLUDES: obesity; HTN; TIA; HLD; CKD; s/p renal transplant; DM II; GERD. Dionicio Callahan MD NM * (ABNORMAL) GLUCOSE METER (08/24/2023 11:10 AM SHRIMP PEELER) Only the most recent of21 resultswithin the time period is included. GLUCOSE METER 248(H) 65 - 100 mg/dL 08/24/2023 11:15 AM SHRIMP PEELER [facility] Blood BLOOD SPECIMEN / Unknown 08/24/2023 11:10 AM SHRIMP PEELER 08/24/2023 11:15 AM SHRIMP PEELER Ebenezer Sanchez MD CHEMISTRY [facility] [address], [place] [address] * Supraglottic (08/24/2023 10:27 AM SHRIMP PEELER) Narrative Sharon Pete CRNA - 08/24/2023 10:27 AM SHRIMP PEELER Sharon Pete CRNA ? 08/24/2023 10:28 AM Procedure: Supraglottic Patient location during procedure: OR Supraglottic Airway Properties Mask Ventilation: not attempted Type: i-gel Tube Size: 5 Insertion Attempts: 1 Placement Verification: auscultation and CO2 detection Assessment Assessment: atraumatic and dentition unchanged Kendell Ontiveros III, MD ANESTHES IA PX NOTE ORDERABLES * (ABNORMAL) MRSA/SA PCR (08/24/2023 9:00 AM SHRIMP PEELER) MRSA DNA PCR Positive( A) Negative 08/24/2023 11:31 PM SHRIMP PEELER [facility] STAPHYLOCOCCUS AUREUS PCR Positive( A) Negative 08/24/2023 11:31 PM SHRIMP PEELER [facility] Other SPECIMEN FROM INTERNAL NOSE / Unknown Non-Blood / Unknown 08/24/2023 9:00 AM SHRIMP PEELER 08/24/2023 9:07 AM SHRIMP PEELER Narrative [facility] - 08/24/2023 11:31 PM SHRIMP PEELER A positive test result does not necessarily indicate the presence of viable organisms. It is, however, presumptive for the presence of Methicillin Resistant Staphylococcus aureus (MRSA) or Staphylococcus aureus. Ebenezer Sanchez MD MICROBIOLOGY [facility] [address] [place] [address], [place] * NM CARDIAC MPI STRESS TEST (08/11/2023 1:13 PM SHRIMP PEELER) Anatomical Region Laterality Modality HEART Ultrasound 08/11/2023 9:28 AM SHRIMP PEELER Narrative 08/11/2023 5:07 PM SHRIMP PEELER ? Toll -free: [phone] ?[employer] ? MYOCARDIAL PERFUSION IMAGING REPORT REST/STRESS SINGLE ISOTOPE GATED SPECT IMAGING Patient Name: ?? ELINOR GUTHRIE ? Gender: ? M ? Height: ? 70 in Accession #: ?[id number] ?Weight: ? 300 lb Study Date: ? 08/11/2023 9:28:55 AM ?BSA: ?2.48 m? ? ? : ?1950 73 years ?BMI: ?43.05 kg/m? ? ? Ord. Prov.: ? DIONICIO CALLAHAN ? Monitoring Prov.: Performing Site [facility] Clinical History: ? Chest pain, dyspnea, lightheadedness, [...] Barbara Baig MD - 08/11/2023 Toll -free: [phone] [employer] MYOCARDIAL PERFUSION IMAGING REPORT REST/STRESS SINGLE ISOTOPE GATED SPECT IMAGING Patient Name: ELINOR GUTHRIE Gender: Chance Height: 70 in Weight: 300 lb Study Date: 08/11/2023 9:28:55 AM BSA: 2.48 m? ? ? : 1950 73 years BMI: 43.05kg/m? ? ? Ord. Prov.: DIONICIO [facility] Monitoring Prov.: Performing Site [facility] Clinical History: Chest [...] CBC WITH AUTO DIFFERENTIAL (07/04/2023 6:33 AM SHRIMP PEELER) Only the most recent of2 resultswithin the time period is included. WHITE BLOOD COUNT 5.7 4.5 - 11.0 thou/cu mm 07/04/2023 7:48 AM [facility] RED BLOOD COUNT 4.28(L) 4.30 - 5.90 mil/cu mm 07/04/2023 7:48 AM [facility] HEMOGLOBIN 11.6(L) 13.5 - 17.5 g/dL 07/04/2023 7:48 AM [facility] HEMATOCRIT 36.0(L) 37.0 - 53.0 % 07/04/2023 7:48 AM [facility] MCV 84 80 - 100 fL 07/04/2023 7:48 AM [facility] MCH 27.1 26.0 - 34.0 pg 07/04/2023 7:48 AM [facility] MCHC 32.2 32.0 - 36.0 g/dL 07/04/2023 7:48 AM [facility] RDW 15.3 11.5 - 15.5 % 07/04/2023 7:48 AM [facility] PLATELET COUNT 81(L) 140 - 440 thou/cu mm 07/04/2023 7:48 AM [facility] MPV 11.9(H) 6.5 - 11.0 fL 07/04/2023 7:48 AM [facility] % NEUT 65.2 % 07/04/2023 7:48 AM [facility] % LYMPH 16.0 % 07/04/2023 7:48 AM [facility] % MONO 9.1 % 07/04/2023 7:48 AM [facility] % EOS 9.5 % 07/04/2023 7:48 AM [facility] % BASO 0.2 % 07/04/2023 7:48 AM [facility] ABSOLUTE NEUTROPHILS 3.7 1.7 - 7.0 thou/cu mm 07/04/2023 7:48 AM [facility] ABSOLUTE LYMPHOCYTES 0.9 0.9 - 2.9 thou/cu mm 07/04/2023 7:48 AM [facility] ABSOLUTE MONOCYTES 0.5 <0.9 thou/cu mm 07/04/2023 7:48 AM [facility] ABSOLUTE EOSINOPHILS 0.5(H) <0.5 thou/cu mm 07/04/2023 7:48 AM [facility] ABSOLUTE BASOPHILS 0.0 <0.3 thou/cu mm 07/04/2023 7:48 AM [facility] Blood BLOOD SPECIMEN / Unknown Line/Port / Unknown 07/04/2023 6:33 AM SHRIMP PEELER 07/04/2023 7:20 AM [facility] Victorina Dowell MD HEMAT OLOGY Performing Organization Address City/State/[facility] Co de Phone Number [facility] [phone] [address] * (ABNORMAL) PLATELET ESTIMATE (07/04/2023 6:33 AM SHRIMP PEELER) Only the most recent of2 resultswithin the time period is included. PLATELET ESTIMATE Decreased (A) Adequate, No estimate 07/04/2023 7:48 AM [facility] Blood BLOOD SPECIMEN / Unknown Line/Port / Unknown 07/04/2023 6:33 AM SHRIMP PEELER 07/04/2023 7:20 AM SHRIMP PEELER Victorina Dowell MD HEMAT OLOGY [facility] [address] [address] * (ABNORMAL) COMP METABOLIC PANEL (07/04/2023 6:33 AM SHRIMP PEELER) Only the most recent of2 resultswithin the time period is included. SODIUM 138 136 - 145 mmol/L 07/04/2023 8:14 AM [facility] POTASSIUM 3.8 3.5 - 5.1 mmol/L 07/04/2023 8:14 AM [facility] CHLORIDE 105 98 - 107 mmol/L 07/04/2023 8:14 AM [facility] CO2,TOTAL 23 22 - 29 mmol/L 07/04/2023 8:14 AM [facility] ANION GAP 10 5 - 18 07/04/2023 8:14 AM [facility] GLUCOSE 158(H) 70 - 99 mg/dL 07/04/2023 8:14 AM [facility] CALCIUM 9.1 8.8 - 10.2 mg/dL 07/04/2023 8:14 AM [facility] BUN 36(H) 8 - 23 mg/dL 07/04/2023 8:14 AM [facility] CREATININE 2.39(H) 0.70 - 1.20 mg/dL 07/04/2023 8:14 AM [facility] BUN/CREAT RATIO 15 10 - 20 8:14 AM [facility] eGFR 28(L) >90 mL/min/1.7 3m2 07/04/2023 8:14 AM [facility] Comment:As of 2021, eG FR is calculated by the CKD-EPI creatinine equation without race adjustment. ??eGFR can be influenced by muscle mass, exercise, and diet. ??The reported eGFR is an estimation only and is only applicable if the renal function is stable. ALBUMIN 3.1(L) 4.0 - 4.9 g/dL 07/04/2023 8:14 AM [facility] PROTEIN,TOTAL 5.8(L) 6.0 - 8.0 g/dL 07/04/2023 8:14 AM [facility] BILIRUBIN,TOTAL 0.4 0.0 - 1.2 mg/dL 07/04/2023 8:14 AM [facility] ALK PHOSPHATASE 109 40 - 129 IU/L 07/04/2023 8:14 AM [facility] ALT (SGPT) <5(L) 10 - 50 IU/L 07/04/2023 8:14 AM [facility] AST (SGOT) 14 10 - 50 IU/L 07/04/2023 8:14 AM [facility] Blood BLOOD SPECIMEN / Unknown Line/Port / Unknown 07/04/2023 6:33 AM SHRIMP PEELER 07/04/2023 7:20 AM SHRIMP PEELER Victorina Dowell MD CHEMI STRY [facility] [address] [address] * (ABNORMAL) AEROBIC BACTERIAL CULTURE, STAIN (06/30/2023 12:15 PM SHRIMP PEELER) CULTURE RESULT(A) 07/04/2023 7:15 AM SHRIMP PEELER [facility] CULTURE 4+ Staphylococcus aureus 07/04/2023 7:15 AM SHRIMP PEELER [facility] Comment:Isolate is MRSA (Met hicillin-resistant Staph aureus). CULTURE 1+ Mixed charlene present 07/04/2023 7:15 AM SHRIMP PEELER [facility] GRAM STAIN No Epithelial cells 07/04/2023 7:15 AM SHRIMP PEELER [facility] GRAM STAIN No RBCs 07/04/2023 7:15 AM SHRIMP PEELER [facility] GRAM STAIN No PMNs 07/04/2023 7:15 AM SHRIMP PEELER [facility] GRAM STAIN 4+ Gram Positive Cocci 07/04/2023 7:15 AM SHRIMP PEELER [facility] Swab SPECIMEN FROM LOWER LIMB / Unknown Non-Blood / Unknown 06/30/2023 12:15 PM SHRIMP PEELER 06/30/2023 1:22 PM SHRIMP PEELER Narrative [facility] - 07/04/2023 7:15 AM SHRIMP PEELER Mixed Charlene; beta-Strep, Strep. pneumoniae, or Pseudomonas aeruginosa Organism Antibiotic Method Susceptibility Staphylococcus aureus OXACILLIN >=4: R Staphylococcus aureus CLINDAMYCIN >=4: R Staphylococcus aureus DOXYCYCLINE <=0.5: S Staphylococcus aureus CEFAZOLIN R Staphylococcus aureus VANCOMYCIN 1: S Staphylococcus aureus TRIMETHOPRIM/SULF <=0.5/9.5: S Victorina Dowell MD MICRO BIOLOGY [facility] [address] [place] [address], * SODIUM (06/29/2023 5:50 AM SHRIMP PEELER) Only the most recent of3 resultswithin the time period is included. SODIUM 139 136 - 145 mmol/L 06/29/2023 11:44 AM SHRIMP PEELER [facility] Blood BLOOD SPECIMEN / Unknown Venipuncture / Unknown 06/29/2023 5:50 AM SHRIMP PEELER 06/29/2023 6:35 AM SHRIMP PEELER Sloan Carlos NP CHEMISTRY [facility] [address] [place] [id number] * POTASSIUM (06/29/2023 5:50 AM SHRIMP PEELER) Only the most recent of3 resultswithin the time period is included. POTASSIUM 3.7 3.5 - 5.1 mmol/L 06/29/2023 11:44 AM SHRIMP PEELER [facility] Blood BLOOD SPECIMEN / Unknown Venipuncture / Unknown 06/29/2023 5:50 AM SHRIMP PEELER 06/29/2023 6:35 AM SHRIMP PEELER Sloan Johnathan [place] DOCTOR OF NURSE ANESTHESIA PRACTICE CHEMISTRY Performing Organization Address City/[facility]/ZIP Co de Phone Number [facility] [address] [place] [address] * (ABNORMAL) CREATININE (06/29/2023 5:50 AM SHRIMP PEELER) Only the most recent of4 resultswithin the time period is included. eGFR 27(L) >90 mL/min/1.7 3m2 06/29/2023 11:44 AM SHRIMP PEELER [facility] Comment:As of 2021, eG FR is calculated by the CKD-EPI creatinine equation without race adjustment. ??eGFR can be influenced by muscle mass, exercise, and diet. ??The reported eGFR is an estimation only and is only applicable if the renal function is stable. CREATININE 2.45(H) 0.70 - 1.20 mg/dL 06/29/2023 11:44 AM SHRIMP PEELER [facility] Blood BLOOD SPECIMEN / Unknown Venipuncture / Unknown 06/29/2023 5:50 AM SHRIMP PEELER 06/29/2023 6:35 AM SHRIMP PEELER Sloan Carlos DOCTOR OF NURSE ANESTHESIA PRACTICE CHEMISTRY Performing Organization Address [facility] Co de Phone Number [facility] [address] [place] [address] * XR CHEST 1 VIEW PORTABLE (06/28/2023 11:37 PM SHRIMP PEELER) Only the most recent of3 resultswithin the time period is included. Anatomical Region Laterality Modality HEART, THORAX, CHEST Digital Rad iography 06/29/2023 12:1 6 AM SHRIMP PEELER Impressions 06/29/2023 12:16 AM SHRIMP PEELER Left upper extremity PICC tip projects over the lower SVC. Dictated by Camden Moreno MD @ 06/29/2023 12:16:27 AM (Electronically Signed) Narrative 06/29/2023 12:16 AM SHRIMP PEELER For Patients: ??As a result of the [...] IMAGING * SCAN-CARDIAC STRIP (06/28/2023 8:18 AM SHRIMP PEELER) Scanner OTHER * (ABNORMAL) ALT (SGPT) (06/28/2023 5:53 AM SHRIMP PEELER) ALT (SGPT) <5(L) 10 - 50 IU/L 06/28/2023 6:53 AM SHRIMP PEELER [facility] Blood BLOOD SPECIMEN / Unknown Venipuncture / Unknown 06/28/2023 5:53 AM SHRIMP PEELER 06/28/2023 6:19 AM SHRIMP PEELER Sloan Carlos NP CHEMISTRY [facility] [address] [place] [address] * (ABNORMAL) ALBUMIN (06/28/2023 5:53 AM SHRIMP PEELER) ALBUMIN 3.1(L) 4.0 - 4.9 g/dL 06/28/2023 6:52 AM SHRIMP PEELER [facility] Blood BLOOD SPECIMEN / Unknown Venipuncture / Unknown 06/28/2023 5:53 AM SHRIMP PEELER 06/28/2023 6:19 AM SHRIMP PEELER Sloan Carlos DOCTOR OF NURSE ANESTHESIA PRACTICE CHEMISTRY [facility] [address] [place] [address] * (ABNORMAL) MYCOPHENOLIC ACID (MPA) AND METABOLITE (06/27/2023 9:00 AM SHRIMP PEELER) Pathologist [facility] Mycophenolic Acid 2.6 1.0 - 3.5 ug/mL 06/30/2023 10:10 AM [facility] Mycophenolic Acid Glucuronide 152(H) 15 - 125 ug/mL 06/30/2023 10:10 AM [facility] Blood BLOOD SPECIMEN / Unknown Butterfly / Unknown 06/27/2023 9:00 AM SHRIMP PEELER 06/27/2023 9:22 AM SHRIMP PEELER Narrative [facility] ([facility]) - 06/30/2023 10:10 AM SHRIMP PEELER Test(s) 923917-[id number] Acid; 171626- Mycophenolic Acid Glucuronide was developed and its performance characteristics determined by [facility]. It has not been cleared or approved by the Food and Drug Administration. Performed at: ??[address] ??[id number] Quail Farmer: Bing Lemus MD, Phone: ??[phone] Nadiya Bullard MD SEND OUT S [facility] ([facility]) [address] [place] [address], * TACROLIMUS (06/27/2023 9:00 AM SHRIMP PEELER) TACROLIMUS 4.5 ng/mL 06/28/2023 9:08 AM [facility] DATE OF LAST DOSE,TACROLIMUS 06/26/2023 06/28/2023 9:08 AM [facility] TIME OF LAST DOSE,TACROLIMUS 5:49 PM 06/28/2023 9:08 AM [facility] Blood BLOOD SPECIMEN / Unknown Butterfly / Unknown 06/27/2023 9:00 AM SHRIMP PEELER 06/27/2023 9:22 AM [facility] - 06/28/2023 9:08 AM [facility] Target blood levels in Heart Transplant recipient: [...] (ECLIA) and the method platform is the [employer] Immunoassay analyzer. Nadiya Bullard MD SEND OUT S [facility] [address] [place] [address], [facility] [address] [place] [address] * SCAN-CARDIAC STRIP (06/27/2023 8:35 AM SHRIMP PEELER) Scanner OTHER * (ABNORMAL) PLATELET COUNT (06/27/2023 5:57 AM SHRIMP PEELER) PLATELET COUNT 79(L) 140 - 440 thou/cu mm 06/27/2023 6:22 AM SHRIMP PEELER [facility] MPV 12.2(H) 6.5 - 11.0 fL 06/27/2023 6:22 AM SHRIMP PEELER [facility] Blood BLOOD SPECIMEN / Unknown Butterfly / Unknown 06/27/2023 5:57 AM SHRIMP PEELER 06/27/2023 6:14 AM SHRIMP PEELER Sloan Carlos NP HEMATOLOGY Performing Organization Address [facility]/ZIP Co de Phone Number [facility] [address] [place] [address] * WHITE BLOOD COUNT (06/27/2023 5:57 AM SHRIMP PEELER) WHITE BLOOD COUNT 7.4 4.5 - 11.0 thou/cu mm 06/27/2023 6:22 AM SHRIMP PEELER [facility] Blood BLOOD SPECIMEN / Unknown Butterfly / Unknown 06/27/2023 5:57 AM SHRIMP PEELER 06/27/2023 6:14 AM SHRIMP PEELER Sloan Carlos DOCTOR OF NURSE ANESTHESIA PRACTICE HEMATOLOGY Performing Organization Address City/[facility]/ZIP Co de Phone Number [facility] [address] [place], [place] [id number] * (ABNORMAL) HEMOGLOBIN (06/27/2023 5:57 AM SHRIMP PEELER) HEMOGLOBIN 12.7(L) 13.5 - 17.5 g/dL 06/27/2023 6:22 AM [facility] MCV 84 80 - 100 fL 06/27/2023 6:22 AM [facility] Blood BLOOD SPECIMEN / Unknown Butterfly / Unknown 06/27/2023 5:57 AM SHRIMP PEELER 06/27/2023 6:14 AM SHRIMP PEELER Sloan Carlos NP HEMATOLOGY Performing Organization Address City/[facility]/ZIP Co de Phone Number [facility] [address] [place] [address] * MAGNESIUM (06/27/2023 5:57 AM SHRIMP PEELER) MAGNESIUM 1.9 1.6 - 2.4 mg/dL 06/27/2023 7:53 AM [facility] Blood BLOOD SPECIMEN / Unknown Butterfly / Unknown 06/27/2023 5:57 AM SHRIMP PEELER 06/27/2023 6:14 AM SHRIMP PEELER Sloan Carlos NP CHEMISTRY Performing Organization Address [facility] Co de Phone Number [facility] [address] [place] [address] * (ABNORMAL) HEPATIC FUNCTION PANEL (06/27/2023 5:57 AM SHRIMP PEELER) ALBUMIN 3.1(L) 4.0 - 4.9 g/dL 06/27/2023 8:10 AM [facility] PROTEIN,TOTAL 6.0 6.0 - 8.0 g/dL 06/27/2023 8:10 AM [facility] BILIRUBIN,TOTAL 0.8 0.0 - 1.2 mg/dL 06/27/2023 8:10 AM [facility] BILIRUBIN,DIRECT 0.3 0.0 - 0.3 mg/dL 06/27/2023 8:10 AM [facility] BILIRUBIN,INDIRE CT 0.5 0.2 - 0.8 mg/dL 06/27/2023 8:10 AM SHRIMP PEELER [facility] ALK PHOSPHATASE 127 40 - 129 IU/L 06/27/2023 8:10 AM [facility] ALT (SGPT) <5(L) 10 - 50 IU/L 06/27/2023 8:10 AM [facility] AST (SGOT) 12 10 - 50 IU/L 06/27/2023 8:10 AM SHRIMP PEELER [facility] Blood BLOOD SPECIMEN / Unknown Butterfly / Unknown 06/27/2023 5:57 AM SHRIMP PEELER 06/27/2023 6:14 AM SHRIMP PEELER Sloan Carlos DOCTOR OF NURSE ANESTHESIA PRACTICE CHEMISTRY [facility] [address] [place] [address] * SCAN-CARDIAC STRIP (06/26/2023 6:30 PM SHRIMP PEELER) Scanner OTHER * CT HEAD BRAIN WO (06/26/2023 4:23 PM SHRIMP PEELER) Anatomical Region Laterality Modality HEAD, BRAIN Computed Tomogra phy 06/26/2023 5:01 PM SHRIMP PEELER Impressions 06/26/2023 5:01 PM SHRIMP PEELER Unremarkable noncontrast head CT. Please note that all CT scans at this facility use dose modulation, iterative reconstruction, and/or weight-based dosing when appropriate to reduce radiation dose to as low as reasonably achievable. Dictated by Dharmesh Clarke MD @ 06/26/2023 5:01:34 PM (Electronically Signed) Narrative 06/26/2023 5:01 PM SHRIMP PEELER For Patients: ??As a result of the [...] T (HS) ONE TIME (06/26/2023 4:06 PM SHRIMP PEELER) Only the most recent of2 resultswithin the time period is included. TROPONIN T HS 39(H) 6-15 ng/L ng/L 06/26/2023 4:29 PM SHRIMP PEELER [facility] Blood BLOOD SPECIMEN / Unknown Venipuncture / Unknown 06/26/2023 4:06 PM SHRIMP PEELER 06/26/2023 4:11 PM SHRIMP PEELER Radha Francois DO CHEMISTRY [facility] [address] [place] [id number] * EKG 12 LEAD (06/26/2023 2:15 PM SHRIMP PEELER) Only the most recent of3 resultswithin the time period is included. [facility] Interpretation Atrial fibrillation Abnormal ECG When compared with ECG of 23-JUN-2023 10:19, No significant change was found no acute ST IT wave abnormalities ?? BEYOND NOW Ventricular Rate 61 BPM BEYOND NOW Atrial Rate 88 BPM BEYOND NOW P-R Interval ms BEYOND NOW QRS Duration 116 ms BEYOND NOW QT 438 ms BEYOND NOW QTc 440 ms BEYOND NOW P Selden degrees BEYOND NOW R Selden -10 degrees BEYOND NOW T Selden 33 degrees BEYOND NOW 06/26/2023 2:15 PM SHRIMP PEELER 06/26/2023 6:19 PM SHRIMP PEELER Radha Francois DO EKG ORD BEYOND NOW [place], [place] * LACTATE VENOUS (06/26/2023 2:03 PM SHRIMP PEELER) [facility] LACTATE,VENOUS 1.1 0.5 - 2.0 mmol/L 06/26/2023 2:31 PM SHRIMP PEELER [facility] Blood BLOOD SPECIMEN / Unknown Venipuncture / Unknown 06/26/2023 2:03 PM SHRIMP PEELER 06/26/2023 2:05 PM SHRIMP PEELER Radha Francois DO CHEMISTRY [facility] [address] [place] [id number] * (ABNORMAL) TROPONIN T (HS) ACUTE W/2HR REFLEX (06/26/2023 1:58 PM SHRIMP PEELER) Only the most recent of2 resultswithin the time period is included. [facility] TROPONIN T HS 40(H) 6-15 ng/L ng/L 06/26/2023 2:26 PM SHRIMP PEELER [facility] Blood BLOOD SPECIMEN / Unknown Venipuncture / Unknown 06/26/2023 1:58 PM SHRIMP PEELER 06/26/2023 2:05 PM SHRIMP PEELER Narrative [facility] - 06/26/2023 2:26 PM SHRIMP PEELER hs-cTnT (Elecsys Troponin T Gen 5) concentration [...] department patient population. Radha Francois DO CHEMISTRY [facility] [address] [place] [address] * (ABNORMAL) URINALYSIS MICROSCOPIC (06/26/2023 1:47 PM SHRIMP PEELER) RBC 3-5(A) 0-2, None Seen /HPF 06/26/2023 1:56 PM SHRIMP PEELER [facility] WBC >100(A) 0-2, 3-5, None Seen /HPF 06/26/2023 1:56 PM SHRIMP PEELER [facility] BACTERIA Moderate(A ) None Seen, Rare, Few Bacteria/ HPF 06/26/2023 1:56 PM SHRIMP PEELER [facility] EPITHELIAL CELLS Few None Seen, Few Epi/HPF 06/26/2023 1:56 PM SHRIMP PEELER [facility] WHITE CELL CLUMPS Present(A) (none) 06/26/2023 1:56 PM SHRIMP PEELER [facility] Urine URINE SPECIMEN / Unknown Non-Blood / Unknown 06/26/2023 1:47 PM SHRIMP PEELER 06/26/2023 1:50 PM SHRIMP PEELER Radha Francois DO URINE [facility] [address] [place] [address] * (ABNORMAL) URINE CULTURE (06/26/2023 1:47 PM SHRIMP PEELER) CULTURE RESULT(A) 06/28/2023 6:50 AM SHRIMP PEELER [facility] CULTURE >100,000 CFU/mL Serratia marcescens 06/28/2023 6:50 AM SHRIMP PEELER [facility] Comment:Oral cephalosporins are not recommended due to concern for derepression of AmpC beta-lactamases. CULTURE <10,000 CFU/mL Multiple organisms probable contaminants 06/28/2023 6:50 AM SHRIMP PEELER [facility] Urine URINE SPECIMEN / Unknown Non-Blood / Unknown 06/26/2023 1:47 PM SHRIMP PEELER 06/26/2023 1:50 PM SHRIMP PEELER Narrative Organism Antibiotic Method Susceptibility Serratia marcescens TRIMETHOPRIM/SULF <=/: S Serratia marcescens CEFAZOLIN >=64: R Serratia marcescens GENTAMICIN <=1: S Serratia marcescens CEFTRIAXONE <=1: S Serratia marcescens CEFTAZIDIME <=1: S Serratia marcescens LEVOFLOXACIN 1: I Serratia marcescens CIPROFLOXACIN 1: R Serratia marcescens CEFEPIME <=1: S Serratia marcescens TOBRAMYCIN 2: S Serratia marcescens MEROPENEM <=0.25: S Serratia marcescens NITROFURANTOIN 128: R Radha Francois DO MICROBIOLOGY [facility] [address] [place] [address], [place] * (ABNORMAL) UA W/ SEDIMENT EXAM REFLEXED PER CRITERIA (06/26/2023 1:47 PM SHRIMP PEELER) COLOR Yellow Yellow Color 06/26/2023 1:54 PM [facility] CLARITY Cloudy(A) Clear Clarity 06/26/2023 1:54 PM [facility] SPECIFIC GRAVITY,URINE 1.025 1.010, 1.015, 1.020, 1.025 06/26/2023 1:54 PM [facility] PH,URINE 5.5 6.0, 7.0, 8.0, 5.5, 6.5, 7.5, 8.5 06/26/2023 1:54 PM [facility] UROBILINOGEN, QUALITATIVE Normal Normal EU/dl 06/26/2023 1:54 PM [facility] PROTEIN, URINE >=300(A) Negative mg/dL 06/26/2023 1:54 PM [facility] GLUCOSE, URINE 250(A) Negative mg/dL 06/26/2023 1:54 PM [facility] KETONES,URINE Negative Negative mg/dL 06/26/2023 1:54 PM [facility] BILIRUBIN,URI NE Negative Negative 06/26/2023 1:54 PM [facility] OCCULT BLOOD,URINE Small(A) Negative 06/26/2023 1:54 PM [facility] NITRITE Negative Negative 06/26/2023 1:54 PM [facility] LEUKOCYTE ESTERASE Large(A) Negative 06/26/2023 1:54 PM [facility] Urine URINE SPECIMEN / Unknown Non-Blood / Unknown 06/26/2023 1:47 PM SHRIMP PEELER 06/26/2023 1:50 PM SHRIMP PEELER Radha Eduarda Francois DO URINE [facility] [address] [place] [address] * SCAN-CARDIAC STRIP (06/24/2023 4:52 PM CDT) Scanner OTHER * SCAN-CARDIAC STRIP (06/24/2023 12:34 PM CDT) Scanner OTHER * SCAN-CARDIAC STRIP (06/24/2023 11:56 AM CDT) Scanner OTHER * (ABNORMAL) PROTIME-INR (06/24/2023 8:38 AM CDT) Only the most recent of2 resultswithin the time period is included. INR 1.2 <1.3 06/24/2023 8:52 AM CDT [facility] PROTIME 15.4(H) 12.2 - 14.3 sec 06/24/2023 8:52 AM CDT [facility] Blood BLOOD SPECIMEN / Unknown Butterfly / Unknown 06/24/2023 8:38 AM CDT 06/24/2023 8:42 AM CDT Narrative [facility] - 06/24/2023 8:52 AM CDT ?Therapeutic [...] on UFH. Nadiya Bullard MD HEMATOLO GY [facility] [address] [place] [address] * SCAN-CARDIAC STRIP (06/23/2023 11:09 PM CDT) [...] PM CDT ECHOCARDIOGRAM ELINOR GUTHRIE ?Accession#: ?? [id number] : ?1950 73 years Study Date: ?? 06/23/2023 11:51:27 AM Gender: M ? BP: ? 142/72 mmHg Height: 183.00 cm ? BSA: ?2.50 m? ? ? Weight: 132.00 kg ? Tech: ? MBW ?Referring MD: LUCIO ARMANDO Site: ? [facility] Reading Location: [facility] Patient Location: Inpatient. Procedure: Limited Echo w/ [...] Contrast documentation: 4 ml diluted Definity, lot #[id number], NDC# [id number] was administered peripherally to enhance visualization of all left ventricular segments. . This study was interpreted by an [facility] accredited facility. CC: Cielo Weaver, Nadiya Owen, Momo Forbes. ??Final ?? Procedure Note Dionicio Callahan MD - 06/23/2023 ECHOCARDIOGRAM ELINOR GUTHRIE : 1950 73 years Study Date: 06/23/2023 11:51:27 AM Gender: M BP: 142/72 mmHg Height: 183.00 cm BSA: 2.50 m? ? ? Weight: 132.00 kg Tech: BENSON Referring MD: LUCIO ARMANDO Site: [facility] Reading Location: [facility] Patient Location: Inpatient. Procedure: Limited Echo w/ [...] documentation: 4 ml diluted Definity, lot #[id number], [facility]#[id number] was administered peripherally to enhance visualization of allleft ventricular segments. . This study was interpreted by an [facility] accredited facility. CC: Cielo Weaver, Nadiya Owen, [...] 9.1(H) <=6.4 % 06/23/2023 7:15 AM CDT [facility] Blood BLOOD SPECIMEN / Unknown Venipuncture / Unknown 06/23/2023 5:58 AM CDT 06/23/2023 6:05 AM CDT Narrative [facility] - 06/23/2023 7:15 AM CDT ? (<5.7%) ?Normal ? (5.7% to 6.4%) ? Indicates prediabetes ? (>=6.5%) ? Confirms diabetes Falsely low levels may be seen with: Recent Transfusion, Recent Significant Blood Loss, Hemolytic Diseases, or Falsely elevated levels may be seen with: Untreated Anemias, Splenectomy Lucio Armando DO CHEMISTRY [facility] [address] [place] [address] * (ABNORMAL) Lipid Panel (06/23/2023 5:58 AM CDT) CHOLESTEROL,TOTAL 76(L) 100 - 199 mg/dL 06/23/2023 6:35 AM [facility] Comment: Cholesterol, Total Reference Ranges Desirable <200 mg/dL Borderline 200-239 mg/dL High >=240 mg/dL TRIGLYCERIDES 83 <150 mg/dL 06/23/2023 6:35 AM [facility] HDL CHOLESTEROL 36(L) >40 mg/dL 6:35 AM [facility] NON-HDL CHOLESTEROL 40 <145 mg/dl 06/23/2023 6:35 AM [facility] CHOL/HDL RATIO 2.11 <4.50 06/23/2023 6:35 AM [facility] LDL CHOLESTEROL 23 <=130 mg/dL 06/23/2023 6:35 AM CDT [facility] VLDL CHOLESTEROL 17 <=30 mg/dL 06/23/2023 6:35 AM CDT [facility] PROVIDER ORDERED STATUS RANDOM 06/23/2023 6:35 AM CDT [facility] Blood BLOOD SPECIMEN / Unknown Venipuncture / Unknown 06/23/2023 5:58 AM CDT 06/23/2023 6:05 AM CDT Lucio Armando DO CHEMISTRY [facility] [address] [place] [address] * MR ANGIO STROKE HEAD WO AND [...] report from the same date. Dictated by vEelio Oliva MD @ 06/22/2023 6:42:06 PM (Electronically [...] For Patients: As a result of the 21st Century Cures Act, medical imagingexams and procedure reports [...] 06/22/2023. Dictated by Jerica Steel MD @ Nov ??2022 ??8:24PM (Electronically Signed) Impressions 06/22/2023 4:32 PM [...] limits for newborns. 06/22/2023 3:42 PM CDT [facility] Blood BLOOD SPECIMEN / Unknown Venipuncture / Unknown 06/22/2023 2:51 PM CDT 06/22/2023 2:59 PM CDT Gema Valdovinos MD HEMATOLOGY [facility] [address] [facility] [place] [address] * (ABNORMAL) CBC W PLT NO DIFF (06/22/2023 2:51 PM CDT) WHITE BLOOD COUNT 6.7 4.5 - 11.0 thou/cu mm 06/22/2023 3:42 PM CDT [facility] RED BLOOD COUNT 4.81 4.30 - 5.90 mil/cu mm 06/22/2023 3:42 PM T [facility] HEMOGLOBIN 13.0(L) 13.5 - 17.5 g/dL 06/22/2023 3:42 PM [facility] HEMATOCRIT 40.5 37.0 - 53.0 % 06/22/2023 3:42 PM [facility] MCV 84 80 - 100 fL 06/22/2023 3:42 PM T [facility] MCH 27.0 26.0 - 34.0 pg 06/22/2023 3:42 PM [facility] MCHC 32.1 32.0 - 36.0 g/dL 06/22/2023 3:42 PM T [facility] RDW 15.2 11.5 - 15.5 % 06/22/2023 3:42 PM T [facility] PLATELET COUNT 82(L) 140 - 440 thou/cu mm 06/22/2023 3:42 PM T [facility] MPV 11.6(H) 6.5 - 11.0 fL 06/22/2023 3:42 PM T [facility] Blood BLOOD SPECIMEN / Unknown Venipuncture / Unknown 06/22/2023 2:51 PM CDT 06/22/2023 2:59 PM CDT Gema Valdovinos MD HEMATOLOGY Performing Organization Address [facility]/ZIP Co de Phone Number [facility] [address] [place] [address] * APTT (06/22/2023 2:51 PM CDT) APTT 30 25 - 33 sec 06/22/2023 4:53 PM CDT [facility] Blood BLOOD SPECIMEN / Unknown Venipuncture / Unknown 06/22/2023 2:51 PM CDT 06/22/2023 2:59 PM CDT Narrative [facility] - 06/22/2023 4:53 PM CDT Therapeutic Range: 78-109 seconds Gema Valdovinos MD HEMATOLOGY Performing Organization Address [facility] Co de Phone Number [facility] [address] [place] [address] * (ABNORMAL) BASIC METABOLIC PANEL (06/22/2023 2:51 PM CDT) SODIUM 139 136 - 145 mmol/L 06/22/2023 4:29 PM [facility] POTASSIUM 4.1 3.5 - 5.1 mmol/L 06/22/2023 4:29 PM [facility] CHLORIDE 105 98 - 107 mmol/L 06/22/2023 4:29 PM [facility] CO2,TOTAL 25 22 - 29 mmol/L 06/22/2023 4:29 PM [facility] ANION GAP 9 5 - 18 06/22/2023 4:29 PM [facility] GLUCOSE 98 70 - 99 mg/dL 06/22/2023 4:29 PM [facility] CALCIUM 9.7 8.8 - 10.2 mg/dL 06/22/2023 4:29 PM [facility] BUN 31(H) 8 - 23 mg/dL 06/22/2023 4:29 PM [facility] CREATININE 2.80(H) 0.70 - 1.20 mg/dL 06/22/2023 4:29 PM CDT [facility] BUN/CREAT RATIO 11 10 - 20 3 4:29 PM CDT [facility] eGFR 23(L) >90 mL/min/1.7 3m2 06/22/2023 4:29 PM CDT [facility] Comment:As of 2021, eG FR is calculated by the CKD-EPI creatinine equation without race adjustment. ??eGFR can be influenced by muscle mass, exercise, and diet. ??The reported eGFR is an estimation only and is only applicable if the renal function is stable. 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, receiving hemodialysis, has chronic open wounds/skin damage, has long-term percutaneous indwelling medical devices Exclusions for nares collection (if <12 months since positive culture) include all of the previous exclusions plus patients on antibiotics 7 days prior to collection 06/30/2023 08/24/2023 Advance Directives Documents on File Type Date Recorded Patient Dean Of [employer] Expl anation Healthcare Directive 06/23/2023 023 POLST [...] Code Status Discussion: Reviewed Preferences Care Teams Annual Giving Manager Relationship Specialty Start Date End Date Momo Frobes MD [address] [place] [address] PCP - General Family Practice 01/22/21 [facility], [place] [id number] [place] [address] 06/25/23
--- OUTSIDE RECORDS SUMMARY | 2023-09-21 11:18 | XMS_ITS | Encounter Summary ---
Author Name Unknown Organization [facility] Address [address] [place] [address] Care Team Providers Care Human Development Professor Name Role Phone Elsewhere, Pcp Primary Care Provider Unavailabl e Reason for Referral * Outpatient (Routine) - Closed Specialty Diagnoses / Procedures Referred By Armaan howell Referred To Contact Urology Ebenezer Sanchez M.D. [address] [phone] [facility] Referral ID Status Reason Start Date Expiration Date Visits Re quested Visits Authorized [id number] Closed 10/18/2022 10/17/2025 1 1 NER Reason for Visit * Reason Comments Follow-up * Outpatient (Routine) - Closed Specialty Diagnoses / Procedures Referred By Armaan howell Referred To Contact Urology Antonia Krause APRN, C.N.P. [address] [place] [phone] [facility] Referral ID Status Reason Start Date Expiration Date Visits Re quested Visits Authorized [id number] Closed 09/21/2022 09/20/2025 1 1 Encounter Details Date Type Department Care Team (Late st Contact Info) Description 10/18/2022 2:30 PM PARTNER Office Visit Department of Urology in [place], [place] [address] [place] [phone] Ebenezer Sanchez M.D. [address] [place] [phone] Urinary Tract Infection Site Not Specified (Primary [...] This calibrate to between 16 and 18 Bengali. Prostate: Length: 2.5 cm. Lateral Lobes: Mild [...] penis and return the foreskin to its [place] position after micturition. Ebenezer Sanchez M.D. 10/18/22 2:48 PM PARTNER NER documented in this encounter Plan of Treatment Upcoming Encounters Date Type Department Care Team (Late st Contact Info) Description 12/01/2023 11:00 AM CDT Office Visit Department of Urology in [place], [place] [address] [phone] Antonia Krause, EDUARDO, C.N.P. [address] [phone] Scheduled Referrals Name Type Priority Associated Diagnoses [...] documented as of this encounter Care Teams Human Development Professor Relationship Specialty Start Date End Date Elsewhere, Pcp PCP - General Internal Medicine 08/12/22 06/29/23 documented as of this encounter
--- OUTSIDE RECORDS SUMMARY | 2023-09-21 11:18 | XMS_ITS | Encounter Summary ---
Author Name Unknown Organization [facility] Address [address] [place] [address] Care Team Providers Care Gate Supervisor Name Role Phone Elsewhere, Pcp Primary Care Provider Unavailabl e Reason for Referral * Outpatient (Routine) - Closed Specialty Diagnoses / Procedures Referred By Armaan howell Referred To Contact Urology Antonia Krause APRN, C.N.P. [address] [place] [phone] [facility] Referral ID Status Reason Start Date Expiration Date Visits Re quested Visits Authorized [id number] Closed 09/21/2022 09/20/2025 1 1 Scheduling Instructions 2-4 weeks MINER BLASTING Reason for Visit * Reason Comments Consult Urinary Incontinence Urinary Tract Infection * Appointment Request (Routine) - Closed Specialty Diagnoses / Procedures Referred By Armaan t Referred To Contact Urology Referral ID Status Reason Start Date Expiration Date Visits Re quested Visits Authorized [id number] Closed 09/03/2022 09/03/2023 1 Encounter Details Date Type Department Care Team (Latest Contact Info) Description 09/21/2022 1:30 PM MICA MINER BLASTING Comprehensive Visit Department of Urology in [place], [place] [address] [place] [phone] Antonia Krause APRN, C.N.P. 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 He started having symptomatic urinarytract infections in December and was hospitalized several times in [facility] [place], and [facility]. He did have Gibbs catheter placed [...] Vitamin C would require clearance from transplant centrifugal extractor operator. We discussed importance of cystoscopy to assess [...] Antonia Krause APRN, C.N.P. 09/21/2022 1:45 PM MICA MINER BLASTING MINER BLASTING documented in this encounter Plan of Treatment Upcoming Encounters Date Type Department Care Team (Late st Contact Info) Description 12/01/2023 11:00 AM CDT Office Visit Department of Urology in [place], [place] [address] [phone] Antonia Krause APRN, C.N.P. [address] [phone] Scheduled Referrals Name Type Priority Associated Diagnoses [...] documented as of this encounter Care Teams Gate Supervisor Relationship Specialty Start Date End Date Elsewhere, Pcp PCP - General Internal Medicine 08/12/22 06/29/23 documented as of this encounter
--- OUTSIDE RECORDS SUMMARY | 2023-09-21 11:18 | XMS_ITS | Encounter Summary ---
Author Name Unknown Organization [facility] Address [address] [place] [address] Care Team Providers Care Technologist Infectious Disease Name Role Phone Dannie Davalosgumaro Kirby APRN, C.N.P., M.S.N. Primary C are Provider Encounter Details Date Type Department Care Team (Late st Contact Info) Description 06/30/2023 Orders Only Senior [facility] in [facility] [address] [phone] Arlette Nath APRN, C.N.P. [address] [facility] [place] [phone] Social History Tobacco Use Types Packs/Day Years [...] CDT Office Visit Department of Urology in [place], [place] [address] [place] [phone] Antonia Krause APRN, C.N.P. [address] [place] [phone] documented as of this encounter Visit Diagnoses Not on filedocumented in this encounter Care Teams Technologist Infectious Disease Relationship Specialty Start Date End Date Manoj Davalos APRN, C.N.P., M.S.N. 200 [place] [address] PCP - General Internal Medicine 06/30/23 08/10/23 documented as of this encounter
--- OUTSIDE RECORDS SUMMARY | 2023-09-21 11:18 | XMS_ITS | Encounter Summary ---
Author Name Unknown Organization [facility] Address [address] [place] [address] Care Team Providers Care Assistant Project Manager Name Role Phone Elsewhere, Pcp Primary Care Provider Unavailabl e Encounter Details Date Type Department Care Team (Late st Contact Info) Description 10/18/2022 3:35 PM HAIR SAMPLE MATCHER Ancillary Procedure Department of Urology Social History [...] CDT Office Visit Department of Urology in [place], [place] [address] [phone] Antonia Krause APRN, C.N.P. [address] [phone] documented as of this encounter Procedures Procedure Name Priority Date/Time Associated Diagnosis Comments UROLOGY IMAGE EXAM Routine 10/18/2022 2: 40 PM HAIR SAMPLE MATCHER documented in this encounter Results * CYSTO-Urology Image Exam (10/18/2022 2:40 PM HAIR SAMPLE MATCHER) 10/18/2022 3:34 PM HAIR SAMPLE MATCHER Narrative IIMS - 10/18/2022 2:40 PM HAIR SAMPLE MATCHER This order has been created and auto-finalized [...] documented as of this encounter Care Teams Assistant Project Manager Relationship Specialty Start Date End Date Elsewhere, Pcp PCP - General Internal Medicine 08/12/22 06/29/23 documented as of this encounter
--- OUTSIDE RECORDS SUMMARY | 2023-09-21 11:18 | XMS_ITS | Encounter Summary ---
Author Name Unknown Organization [facility] Address [address] [place] [address] Care Team Providers Care Product Control And Logistics Analyst Name Role Phone Elsewhere, Pcp Primary Care Provider Unavailabl e Reason for Referral * Outpatient (Routine) - Closed Specialty Diagnoses / Procedures Referred By Armaan t Referred To Contact Urology Diagnoses Urinary Tract Infection Site Not Specified Retention Urinary Momo Forbes M.D. [address] [place] [address] [facility] Referral ID Status Reason Start Date Expiration Date Visits Re quested Visits Authorized [id number] Closed 03/28/2023 2024 1 1 Encounter Details Date Type Department Care Team (Late st Contact Info) Description 03/28/2023 [facility] [address] [place] [phone] Momo Forbes M.D. [address] [place] [address] Urinary Tract Infection Site Not [...] CDT Office Visit Department of Urology in [place], [place] [address] [phone] Antonia Krause APRN, C.N.P. [address], [place] [phone] Scheduled Referrals Name Type Priority Associated Diagnoses Orde r Schedule Urology Referral Outpatient Referral Routine Urinary Tract Infection Site Not Specified Retention Urinary Expected: 03/28/2023 (Approximate), Expires: 06/28/2024 documented as of this encounter Visit Diagnoses Diagnosis Urinary Tract Infection Site Not Specified- Primary Retention Urinary documented in this encounter Care Teams Product Control And Logistics Analyst Relationship Specialty Start Date End Date Elsewhere, Pcp PCP - General Internal Medicine 08/12/22 06/29/23 documented as of this encounter
--- OUTSIDE RECORDS SUMMARY | 2023-09-21 11:18 | XMS_ITS | Encounter Summary ---
Author Name Unknown Organization [facility] Address [address] [place] [address] Care Team Providers Care Synthetic Cloth Binding Cutter Name Role Phone Elsewhere, Pcp Primary Care Provider Unavailabl e Reason for Referral * Outpatient (Routine) - Closed Specialty Diagnoses / Procedures Referred By Armaan howell Referred To Contact UrologEbenezer Vega M.D. [address] [place] [phone] [facility] Region Referral ID Status Reason Start Date Expiration Date Visits Re quested Visits Authorized [id number] Closed 05/09/2023 05/08/2026 1 1 Reason for Visit * Reason Comments Urinary Tract Infection Been on cipro fo r last 3 days Does not typically have symptoms noted. Follow-up Per Dr. Forbes * Outpatient (Routine) - Closed Specialty Diagnoses / Procedures Referred By Armaan howell Referred To Contact Urology Ebenezer Sanchez M.D. [address] [address] [facility] Referral ID Status Reason Start Date Expiration Date Visits Re quested Visits Authorized [id number] Closed 10/18/2022 10/17/2025 1 1 Encounter Details Date Type Department Care Team (Late st Contact Info) Description 05/09/2023 3:30 PM CDT Office Visit Department of Urology in [place], [place] [address], [place] [address] Ebenezer Sanchez M.D. [address] [phone] Transplant Renal (HCC) (Primary Dx); Urinary Tract [...] the fossa navicularis. Itcalibrate to approximately 18 Dominican. I was reluctant to a dilate, at [...] CDT Office Visit Department of Urology in [place], [place] [address] [place] [address] Antonia Krause APRN, C.N.P. [address] [address] Scheduled Referrals Name Type Priority Associated Diagnoses Orde r Schedule Urology office visit (clinic) Outpatient Referral Routine Expected: 08/08/2023 (Approximate), Expires: 08/08/2024 documented as of this encounter Results * (ABNORMAL) Bacterial Culture, Aerobic + Susceptibility, Urine (08/01/2023 1:20 PM MOLECULAR BIOLOGY DIRECTOR) Urine Culture SERRATIA MARCESCENS >100,000 cfu/mL (A) 08/03/2023 7:03 AM MOLECULAR BIOLOGY DIRECTOR MKTO Urine (Urine, Midstream) 08/01/2023 1:20 PM MOLECULAR BIOLOGY DIRECTOR 08/01/2023 6:48 PM MOLECULAR BIOLOGY DIRECTOR Comment:Specimen Source Site : Urine Narrative Organism [...] M.D. 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
--- OUTSIDE RECORDS SUMMARY | 2023-09-21 11:19 | XMS_ITS | Encounter Summary ---
Author Name Unknown Organization [facility] Address [address] [place] [address] Care Team Providers Care Demolitionist Name Role Phone Momo Forbes MD Primary Care Provider [phone] Encounter Details Date Type Department Care Team (Late st Contact Info) Description 12/06/2022 External Order Results [facility] [address] [place] [address] Outside, Provider Social History Tobacco Use Types [...] Negative ML NON-INTERFAC ED (ONBASE SCANS) Specific [place] Urine (External) 1.015 1.000 - 1.030 ML [...] Reported LAB - BLOOD ORDERABL ES [facility] NON-INTERFACED (ONBASE SCANS) * (ABNORMAL) Basic metabolic [...] on filedocumented in this encounter Care Teams Demolitionist Relationship Specialty Start Date End Date Momo Forbes MD PCP - General Family Practice 01/02/14 documented as of this encounter
--- OUTSIDE RECORDS SUMMARY | 2023-09-21 11:19 | XMS_ITS | Encounter Summary ---
Author Name Unknown Organization [facility] Address [address] [place] [address]. [place] [address] Care Team Providers Care Golf Course Equipment Operator Name Role Phone Momo Forbes MD Primary Care Provider + [phone] Reason for Visit * Reason Onset Date Comments Transplant 12/03/2022 Encounter Details Date Type Department Care Team (Late st Contact Info) Description 12/03/2022 Telephone [facility] [address] [place] [phone] Gretta Peacock RN Transplant Social History [...] done locally. Will sent orders. Gretta Peacock beam sealerTire Buffer [phone] * Telephone Encounter - Latosha Green - 12/03/2022 11:14 AM CDT Pt returning call documented in this encounter Plan of Treatment Not on file documented as of this encounter Visit Diagnoses Not on filedocumented in this encounter Care Teams Golf Course Equipment Operator Relationship Specialty Start Date End Date Momo Forbes MD PCP - General Family Practice 01/02/14 documented as of this encounter
--- OUTSIDE RECORDS SUMMARY | 2023-09-21 11:19 | XMS_ITS | Encounter Summary ---
Author Name Unknown Organization [facility] Address [address] [place] [address]. [place] [address] Care Team Providers Care Automotive Refinisher Name Role Phone Momo Forbes MD Primary Care Provider + [phone] Reason for Visit * Reason Onset Date Comments Refill Request 11/29/2022 Encounter Details Date Type Department Care Team (Late st Contact Info) Description 11/29/2022 Refill [facility] [place] [address] [place] [phone] Joseph Quintana MD [address] [place] [address] [address] [facility] [address] [place] [address] Refill Request Social History Tobacco [...] transplant documented in this encounter Care Teams Automotive Refinisher Relationship Specialty Start Date End Date Momo Forbes MD PCP - General Family Practice 01/02/14 documented as of this encounter
--- OUTSIDE RECORDS SUMMARY | 2023-09-21 11:19 | XMS_ITS ---
Author Name Unknown Organization [facility] Address [address] [place] [address]. [place] [address] Care Team Providers Care Gear Shaver Set Up Operator Name Role Phone Momo Forbes MD [...] treatments are documented for this patient in [facility]. Treatments may have been administered in [...]
--- OUTSIDE RECORDS SUMMARY | 2023-09-21 11:19 | XMS_ITS | Encounter Summary ---
Author Name Unknown Organization [facility] Address [address] [place] [address]. [place] [address] Care Team Providers Care Associate Dean Name Role Phone Momo Forbes MD Primary [...]
--- OUTSIDE RECORDS SUMMARY | 2023-09-21 11:19 | XMS_ITS | Encounter Summary ---
Author Name Unknown Organization [facility] Address [address] [place] [address]. [place] [address] Care Team Providers Care Schedule Maker Name Role Phone Momo Forbes MD Primary Care Provider + [phone] Reason for Visit * Reason Onset Date Comments Refill Request 11/29/2022 Encounter Details Date Type Department Care Team (Late st Contact Info) Description 11/29/2022 Refill [facility] [address] [place] [phone] Gretta Peacock RN Refill Request Social [...] transplant documented in this encounter Care Teams Schedule Maker Relationship Specialty Start Date End Date Momo Forbes MD PCP - General Family Practice 01/02/14 documented as of this encounter
--- OUTSIDE RECORDS SUMMARY | 2023-09-21 11:19 | XMS_ITS | Encounter Summary ---
Author Name Unknown Organization [facility] Address [address] [place] [address]. [place] [address] Care Team Providers Care Automotive Mechanic Name Role Phone Momo Forbes MD Primary Care Provider [phone] Reason for Visit * Reason Onset Date Comments Transplant Care Coordination 12/08/2022 hyp erglycemia Encounter Details Date Type Department Care Team (Late st Contact Info) Description 12/08/2022 Telephone [facility] [address] [place] [phone] Gretta Peacock RN Transplant Care Coordination (hyperglycemia) Social History [...] trend down from last week Gretta Peacock hot die press feederPressure Testing Technician [phone] documented in this encounter Plan of Treatment Not on file documented as of this encounter Visit Diagnoses Not on filedocumented in this encounter Care Teams Automotive Mechanic Relationship Specialty Start Date End Date Momo Forbes MD PCP - General Family Practice 01/02/14 documented as of this encounter
--- OUTSIDE RECORDS SUMMARY | 2023-09-21 11:19 | XMS_ITS | Encounter Summary ---
Author Name Unknown Organization [facility] Address [address] [facility] [place] [address] Care Team Providers Care Supervisor Shearing Name Role Phone Momo Forbes MD Primary Care Provider + [phone] Reason for Visit * Reason Onset Date Comments Call Back 06/28/2023 Encounter Details Date Type Department Care Team (Late st Contact Info) Description 06/28/2023 Telephone [facility] [address] [phone] Satish Gómez MD [address] [place] [phone] Call Back Social History Tobacco Use Types [...] Gretta Peacock RN Sent: 06/28/2023 4:28 PM SOFT SUGAR OPERATOR HEAD To: Satish Gómez MD Subject: UTI/ MICHELLE inpatient at [facility]! I received a call from MADALYN Guerrero caring for Diego Guthrie at [facility] who is being treated for UTI/MICHELLE. Creatinine [...] the double strength bactrim? Gretta Peacock RN Fitness Teacher [phone] OUTCOME: provider aware and agreeable to continuing IV ABX Gretta Peacock RN Fitness Teacher [phone] SUGAR OPERATOR HEAD * Telephone Encounter - Gretta Peacock RN - 06/28/2023 4:09 PM CST Returned call to provider. Asked for CB to discuss patient's current states. Left RNCC contact information as well as the provider to provider line. Gretta Peacock RN Fitness Teacher [phone] SUGAR OPERATOR HEAD * Telephone Encounter - Haleigh Hodgson - 06/28/2023 12:46 PM CST [facility] Phone Message May a detailed message be left on voicemail: yes Reason for Call: Per Cesar PLASTIC PRODUCTS SALES REPRESENTATIVE from [facility] calling stating that pt is currently inpatient for MICHELLE and a UTI. Cesar is wanting to speak with Dalia or a care steam conditioner operator regarding this. Please call Cesar Action Taken: Message routed to: Other: Neph Travel Screening: Not Applicable SUGAR OPERATOR HEAD documented in this encounter Plan of Treatment Not on file documented as of this encounter Visit Diagnoses Not on filedocumented in this encounter Care Teams Supervisor Shearing Relationship Specialty Start Date End Date Momo Forbes MD PCP - General Family Practice 01/02/14 documented as of this encounter
--- OUTSIDE RECORDS SUMMARY | 2023-09-21 11:19 | XMS_ITS | Encounter Summary ---
Author Name Unknown Organization [facility] Address [address] [place] [address]. [place] [address] Care Team Providers Care Fishing Floats Assembler Name Role Phone Momo Forbes MD Primary Care Provider [phone] Encounter Details Date Type Department Care Team (Late st Contact Info) Description 11/30/2022 12:00 PM CDT [facility] [address] [place] [address] Kidney transplanted Social History Tobacco [...] LAB - BLOOD SURYA [facility]ST [facility] LAB[facility]ATORY [facility] [address] [facility] Lab (no room number, 1st floor of clinic) [place] [address], [facility] [phone] * (ABNORMAL) Basic metabolic panel (11/30/2022 11:33 AM CDT) Pathologist [facility] Sodium 142 136 - 145 mmol/L 11/30/2022 [...] LAB - BLOOD SURYA HURST [facility] LABORATORY [facility] [place] [facility] [address] [facility], Room [address] [place] [phone] [phone] * Tacrolimus by Tandem Mass Spectrometry (11/30/2022 11:33 AM CDT) Pathologist [facility] Tacrolimus by Tandem Mass Spectrometry 7.5 5.0 [...] and its performance characteristics determined by the [facility] [...] [facility] [address] [facility], [address] [place] [address], [facility] [phone] documented in this encounter Visit Diagnoses Diagnosis 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
--- OUTSIDE RECORDS SUMMARY | 2023-09-21 11:19 | XMS_ITS | Encounter Summary ---
Author Name Unknown Organization [facility] Address [address] [place] [address]. [place] [address] Care Team Providers Care Compensation Administrator Name Role Phone Momo Forbes MD Primary Care Provider + [phone] Reason for Visit * Reason Onset Date Comments Transplant 11/11/2022 Encounter Details Date Type Department Care Team (Late st Contact Info) Description 11/11/2022 Telephone [facility] [address] [place] [phone] Alana Calderon LPN Transplant Social History [...] filedocumented in this encounter Care Teams Compensation Administrator Relationship Specialty Start Date End Date Momo Forbes MD PCP - General Family Practice 01/02/14 documented as of this encounter
--- OUTSIDE RECORDS SUMMARY | 2023-09-21 11:19 | XMS_ITS | Encounter Summary ---
Author Name Unknown Organization [facility] Address [address] [place] [address]. [place] [address] Care Team Providers Care Head Of Ict Name Role Phone Momo Forbes MD Primary Care Provider + [phone] Reason for Visit * Reason Onset Date Comments Returning Missed Call 11/10/2022 Encounter Details Date Type Department Care Team (Late st Contact Info) Description 11/10/2022 Telephone [facility] [address] [place] [phone] Gretta Peaccok, RN Returning Missed Call Social History Tobacco [...] see note dated 11/09 Gretta Peacock RN Neurosurgery Research Director [phone] * Telephone Encounter - Tommie Alcazar - 11/10/2022 4:31 PM CDT Patient Call: General Route to MEAT DRESSER Reason for call: Tete called in regards of returning yesterday's missed call. Call back [phone]. Call back needed? Yes Return Call Needed Same as documented in contacts section When to return call?: Same day: Route High Priority documented in this encounter Plan of Treatment Not on file documented as of this encounter Visit Diagnoses Not on filedocumented in this encounter Care Teams Head Of Ict Relationship Specialty Start Date End Date Momo Forbes MD PCP - General Family Practice 01/02/14 documented as of this encounter
--- OUTSIDE RECORDS SUMMARY | 2023-09-21 11:19 | XMS_ITS | Encounter Summary ---
Author Name Unknown Organization [place] Address [facility] [place] [address] Care Team Providers Care Flight Physician Name Role Phone Momo Forbes MD Primary Care Provider Encounter Details Date Type Department Care Team (Late st Contact Info) Description 05/12/2023 Telephone [facility] Transplant Clinic [address] [place] [address] Gretta Peacock, BOGDAN Social History Tobacco [...] filedocumented in this encounter Care Teams Flight Physician Relationship Specialty Start Date End Date Momo Forbes MD PCP - General Family Practice 01/02/14 documented as of this encounter
--- OUTSIDE RECORDS SUMMARY | 2023-09-21 11:19 | XMS_ITS | Clinical Summary ---
Author Name Unknown Organization [place] Address [address] [place] [address]. [place] [address] Care Team Providers Care Physiological Chemist Name Role Phone Momo Forbes MD Primary Care Provider Allergies Active [...] Type Department Care Team Description 06/28/2023 Telephone [facility] Nephrology Clinic [address] [address] Satish Gómez MD Call Back [...] 136.1 kg (300 lb) 10/22/2022 8:00 AM VOICE NETWORK ENGINEER Height 182.9 cm (6') 10/22/2022 8:00 AM VOICE NETWORK ENGINEER Body Mass Index 40.69 10/22/2022 8:00 AM VOICE NETWORK ENGINEER Plan of Treatment Health Maintenance Due Date [...] this topic Medical Devices Explanted Type Area Porcelain Technician Device Identifier Shelf Expiration Date Model / Serial / Lot Stent Ureteral Childress Renal Transplant [id number] Implanted:Qty: 1 on 02/02/2014 by Migel Merchant MD at [facility] Explanted:Qty: 1 on 04/01/2014 by Celina Cole MD at [facility] Right: Ureter [employer] 11/19/2016 [id number] / / [id number] Advance Directives For more information, please contact: [phone] Latest Code Status on File Code Status Date Activated Date Inactivated Comments Full Code 04/01/2014 9:03 AM 10/22/2022 7:29 AM Code Status History Code Status Date Activated Date Inactivated Comments Full Code 02/08/2014 7:12 AM 04/01/2014 9:03 AM Full Code 02/03/2014 12:56 AM 02/08/2014 7:12 AM Care Teams Physiological Chemist Relationship Specialty Start Date End Date Momo Forbes MD PCP - General Family Practice 01/02/14
--- OUTSIDE RECORDS SUMMARY | 2023-09-21 11:19 | XMS_ITS | Encounter Summary ---
Author Name Unknown Organization [place] Address [address] [place] [address]. [place] [address] Care Team Providers Care Classification And Treatment Director Name Role Phone Momo Forbes MD Primary Care Provider + [phone] Reason for Referral * Diagnostic Imaging Ultrasound (Routine) - Pending Review Specialty Diagnoses / Procedures Referred By Contac t Referred To Contact Radiology. Diagnoses Elevated serum creatinine UTI symptoms Procedures US Renal Transplant without Doppler Joseph Quintana MD [address] [place] [address] [address] [facility] [address] [place] [address] Referral ID Status Reason Start Date Expiration Date V isits Requested Visits Authorized [id number] Pending Review 12/02/2022 12/02/2023 1 1 Reason for Visit * Reason Onset Date Comments Transplant Immunosuppression Management 12/02/19 23 Transplant Care Coordination 12/01/2022 Encounter Details Date Type Department Care Team (Late st Contact Info) Description 12/01/2022 Telephone [facility] [address] [facility] 1st [place] [address] Gretta Frias RN Transplant Immunosuppression [...] to confirm message received. Gretta Frias RN Mold Filler Plastic Dolls [phone] * Telephone Encounter - Gretta Frias RN [...] with patient's , Tete Gretta Frias RN Mold Filler Plastic Dolls [phone] * Addendum Note - Gretta Frias RN [...] symptoms documented in this encounter Care Teams Classification And Treatment Director Relationship Specialty Start Date End Date Momo Forbes MD PCP - General Family Practice 01/02/14 documented as of this encounter
--- OUTSIDE RECORDS SUMMARY | 2023-09-21 11:19 | XMS_ITS | Encounter Summary ---
Author Name Unknown Organization [place] Address [address] [place] [address]. [place] [address] Care Team Providers Care Shoe Sewing Machine Operator And Tender Name Role Phone Momo Forbes MD Primary Care Provider [phone] Encounter Details Date Type Department Care Team [...] filedocumented in this encounter Care Teams Shoe Sewing Machine Operator And Tender Relationship Specialty Start Date End Date Momo Forbes MD PCP - General Family Practice 01/02/14 documented as of this encounter
--- OUTSIDE RECORDS SUMMARY | 2023-09-21 11:19 | XMS_ITS | Referral Summary ---
Author Name Unknown Organization [place] Address [address] [place] [address]. [place] [address] Care Team Providers Care Textile Cutting Machine Operator Name Role Phone Momo Forbes MD Primary Care Provider Encounters Date Type Department Care Team Description 06/28/2023 Telephone [facility] Nephrology Clinic [address] [address] Satish Gómez MD Call Back [...] 136.1 kg (300 lb) 10/22/2022 8:00 AM CHOPPING MACHINE OPERATOR Height 182.9 cm (6') 10/22/2022 8:00 AM CHOPPING MACHINE OPERATOR Body Mass Index 40.69 10/22/2022 8:00 AM CHOPPING MACHINE OPERATOR Plan of Treatment Not on file Medical Devices Explanted Type Area Pulp Drier Firer Device Identifier Shelf Expiration Date Model / Serial / Lot Stent Ureteral Childress Renal Transplant [id number] Implanted:Qty: 1 on 02/02/2014 by Migel Merchant MD at [facility] Explanted:Qty: 1 on 04/01/2014 by Celina Cole MD at [facility] Right: Ureter [employer] 11/19/2016 [id number] / / [id number] Advance Directives For more information, please contact: [phone] Latest Code Status on File Code Status Date Activated Date Inactivated Comments Full Code 04/01/2014 9:03 AM 10/22/2022 7:29 AM Code Status History Code Status Date Activated Date Inactivated Comments Full Code 02/08/2014 7:12 AM 04/01/2014 9:03 AM Full Code 02/03/2014 12:56 AM 02/08/2014 7:12 AM Care Teams Textile Cutting Machine Operator Relationship Specialty Start Date End Date Momo Forbes MD PCP - General Family Practice 01/02/14
--- OUTSIDE RECORDS SUMMARY | 2023-09-21 11:20 | XMS_ITS | Encounter Summary ---
Author Name Unknown Organization [place] Address [address] [place] [address] Care Team Providers Care Truck Driver Teamster Name Role Phone Momo Forbes MD Primary Care Provider [phone] Encounter Details Date Type Department Care Team (Late st Contact Info) Description 10/26/2022 External Order Results [facility] [address] [place] [address] Outside, Provider Social History Tobacco Use Types [...] Coronavirus/COVID-19? Unable to assess 10/28/2022 12:48 PM AUTISM TEACHER documented as of this encounter Plan of Treatment Not on file documented as of this encounter Procedures Procedure Name Priority Date/Time Associated Diagnosis Comments CBC WITH PLATELETS & DIFFERENTIAL Routine 10/26/2022 11:25 AM AUTISM TEACHER TACROLIMUS BY TANDEM MASS SPECTROMETRY Routine 10/26/2022 11:25 AM AUTISM TEACHER BASIC METABOLIC PANEL Routine 10/26/2022 11:25 AM AUTISM TEACHER documented in this encounter Results * Tacrolimus by Tandem Mass Spectrometry (10/26/2022 11:25 AM AUTISM TEACHER) Pathologist [facility] Tacrolimus(FK-5 06) (External) 7.6 ng/mL NON-INTERFACE D (ONBASE SCANS) Blood 10/26/2022 11:2 5 AM AUTISM TEACHER Narrative JESSICA PFT - 11/01/2022 1:42 PM CDT Verified by Yudi Ruano on 11/01/2022. Joseph Quintana MD LAB - BLOOD SURYA HURST JESSICA PFT NON-INTERFACED (ONBASE SCANS) * (ABNORMAL) CBC with Platelets & Differential (10/26/2022 11:25 AM AUTISM TEACHER) Pathologist [facility] WBC Count (External) 6.29 4.50 - 11.00 [...] BLOOD SPECIMEN / Unknown 10/26/2022 11:25 AM AUTISM TEACHER Narrative JESSICA MORELIA - 10/27/2022 11:03 AM AUTISM TEACHER Verified by Praful Huff on 10/27/2022. Joseph Quintana MD LAB - BLOOD SURYA HURST JESSICA [facility] NON-INTERFACED (ONBASE SCANS) * (ABNORMAL) Basic metabolic panel (10/26/2022 11:25 AM AUTISM TEACHER) Sodium (External) 140 135 - 149 mmol/L [...] BLOOD SPECIMEN / Unknown 10/26/2022 11:25 AM AUTISM TEACHER Narrative JESSICA PFT - 10/27/2022 11:03 AM AUTISM TEACHER Verified by Praful Huff on 10/27/2022. Joseph Quintana MD LAB - BLOOD SURYA HURST [facility] Organization Address City/State/ZIP Co de Phone Number JESSICA MORELIA NON-INTERFACED (ONBASE SCANS) documented in this encounter Visit Diagnoses Not on filedocumented in this encounter Care Teams Truck Driver Teamster Relationship Specialty Start Date End Date Momo Forbes MD PCP - General Family Practice 01/02/14 documented as of this encounter
--- OUTSIDE RECORDS SUMMARY | 2023-09-21 11:20 | XMS_ITS | Encounter Summary ---
Author Name Unknown Organization [place] Address [facility] [place] [address] Care Team Providers Care Disease Intervention Specialist Name Role Phone Momo Forbes MD Primary Care Provider + [phone] Encounter Details Date Type Department Care Team (Late st Contact Info) Description 11/03/2022 Telephone [facility] Transplant Clinic [address] [place] [address] Gretta Peacock, RN Social History [...] phone call dated 11/03/2022 Gretta Peacock RN Custom Motorcycle Painter [phone] * Telephone Encounter - Tommie Alcazar - 11/03/2022 1:45 PM CDT Patient Call: General Route to CONCRETE BUCKET HOOKER Reason for call: returning missed call and would like to speak with coordinator. Call back number is [phone]. Call back needed? Yes Return Call Needed Same as documented in contacts section When to return call?: Same day: Route High Priority documented in this encounter Plan of Treatment Not on file documented as of this encounter Visit Diagnoses Not on filedocumented in this encounter Care Teams Disease Intervention Specialist Relationship Specialty Start Date End Date Momo Forbes MD PCP - General Family Practice 01/02/14 documented as of this encounter
--- OUTSIDE RECORDS SUMMARY | 2023-09-21 11:20 | XMS_ITS | Encounter Summary ---
Author Name Unknown Organization [place] Address [address] [place] [address]. [place] [address] Care Team Providers Care Cyber Operator Name Role Phone Momo Forbes MD Primary Care Provider + [phone] Reason for Visit * Reason Onset Date Comments Transplant 10/28/2022 Encounter Details Date Type Department Care Team (Late st Contact Info) Description 10/28/2022 Telephone [facility] Transplant Clinic [address] [place] [address] Gretta Peacock RN Transplant Social History [...] Coronavirus/COVID-19? Unable to assess 10/28/2022 12:48 PM ANNEALER documented as of this encounter Miscellaneous Notes [...] with renal transplant biopsy Thursday 11/02 Gretta Peacokc RN Cadet Deck [phone] ALER * Telephone Encounter - Gretta Peacock RN [...] 12 hour trough level Gretta Peacock RN Cadet Deck [phone] ALER * Telephone Encounter - Laisha Porter - 10/28/2022 12:23 PM CST Patient Call: General Route to KETTLE HAND Pt on his way and have questions about appts for today and tomorrow and is need a return call [email or web address] Reason for call: Call back needed? Yes Return Call Needed Same as documented in contacts section When to return call?: Greater than one day: Route standard priority ALER documented in this encounter Plan of Treatment Not on file documented as of this encounter Visit Diagnoses Not on filedocumented in this encounter Care Teams Cyber Operator Relationship Specialty Start Date End Date Momo Forbes MD PCP - General Family Practice 01/02/14 documented as of this encounter
--- OUTSIDE RECORDS SUMMARY | 2023-09-21 11:20 | XMS_ITS | Encounter Summary ---
Author Name Unknown Organization [place] Address [address] [place] [address]. [place] [address] Care Team Providers Care Switchboard Manager Name Role Phone Momo Forbes MD Primary Care Provider + [phone] Reason for Referral * Diagnostic Imaging NM (Routine) - Closed Specialty Diagnoses / Procedures Referred By Contac t Referred To Contact Radiology. Diagnoses Elevated serum creatinine Procedures NM Renogram with Joseph Ashton MD [address] [place] [address] Referral ID Status Reason Start Date Expiration Date Visits Re quested Visits Authorized [id number] Closed 10/26/2022 10/26/2023 1 1 DE SALES MANAGER Reason for Visit * Diagnostic Imaging NM (Routine) - Closed Specialty Diagnoses / Procedures Referred By Contac t Referred To Contact Radiology. Diagnoses Elevated serum creatinine Procedures NM Renogram with Joseph Ashton MD [address] [place] [address] [place] [address] Referral ID Status Reason Start Date Expiration Date Visits Re quested Visits Authorized [id number] Closed 10/26/2022 10/26/2023 1 1 Encounter Details Date Type Department Care Team (Latest Contact Info) Description 10/28/2022 12:49 PM INSIDE SALES MANAGER - 10/28/2022 11:59 PM INSIDE SALES MANAGER Hospital Encounter [facility] Imaging [address] [place] [phone] Joseph Quintana MD [address] [facility] 353 [facility] [address] [place], [place] [id number] Elevated serum creatinine Discharge Disposition: Home or [...] Coronavirus/COVID-19? Unable to assess 10/28/2022 12:48 PM INSIDE SALES MANAGER documented as of this encounter Medications at [...] RENOGRAM WITH LASIX Routine 10/28/2022 2:59 PM INSIDE SALES MANAGER Elevated serum creatinine documented in this encounter Results * NM Renogram with Lasix (10/28/2022 2:59 PM INSIDE SALES MANAGER) Anatomical Region Laterality Modality Abdomen/Pelvis Nuclear Medicine Impressions 10/28/2022 3:04 PM INSIDE SALES MANAGER Impression: 1. Normal perfusion of the transplanted kidney. 2. 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 3. No evidence of obstruction or leakage of the transplanted kidney. KJ THOMPSON MD Narrative 10/28/2022 3:04 PM INSIDE SALES MANAGER Examination: ??NM transplant RENOGRAM WITH LASIX Date: [...] kidney. KJ THOMPSON MD Joseph Quintana MD [facility] [place] ORDERABLE S documented in this [...] For 1 dose $Given 10/28/2022 1:57 PM INSIDE SALES MANAGER 20 mg technetium mertiatide Tc99m (MAG3) radioisotope injection 8-12 millicurie 8-12 millicurie, Intravenous, ONCE, On Renetta 10/28/22 at 1330, For 1 dose, Supplied by, and administered by Nuclear Medicine. *HW* $Given 10/28/2022 1:36 PM INSIDE SALES MANAGER 10 millicuries documented in this encounter Care Teams Switchboard Manager Relationship Specialty Start Date End Date Momo Forbes MD PCP - General Family Practice 01/02/14 documented as of this encounter
--- OUTSIDE RECORDS SUMMARY | 2023-09-21 11:20 | XMS_ITS | Encounter Summary ---
Author Name Unknown Organization [place] Address [address] [place] [address]. [place] [address] Care Team Providers Care Paper Latcher Name Role Phone Momo Forbes MD Primary [...] Coronavirus/COVID-19? Unable to assess 10/28/2022 12:48 PM MASTER PLUMBER documented as of this encounter Plan of Treatment Not on file documented as of this encounter Visit Diagnoses Not on filedocumented in this encounter Care Teams Paper Latcher Relationship Specialty Start Date End Date Momo Forbes MD PCP - General Family Practice 01/02/14 documented as of this encounter
--- OUTSIDE RECORDS SUMMARY | 2023-09-21 11:20 | XMS_ITS | Encounter Summary ---
Author Name Unknown Organization [place] Address [address] [facility] [place] [address] Care Team Providers Care E Commerce Merchant Name Role Phone Momo Forbes MD Primary Care Provider + [phone] Reason for Referral * Therapeutic Imaging/IR (Routine: Next available opening) - Closed Specialty Diagnoses / Procedures Referred By Contac t Referred To Contact Radiology. Diagnoses Elevated serum creatinine Procedures IR Renal Biopsy Right IR Referral outpatient referral Joseph Quintana MD [address] [place] [address] [address] [place] [address] Referral ID Status Reason Start Date Expiration Date Visits Re quested Visits Authorized [id number] Closed 10/26/2022 10/26/2023 1 1 Encounter Details Date Type Department Care Team (Latest Contact Info) Description 11/02/2022 12:18 PM CDT - 11/02/2022 5:10 PM CDT Hospital Encounter [facility] [address] [place] [address] [place] [address] Joseph Quintana MD [address] [place] [address] [place] [phone] Marco Enrique PA-C [facility] [address] [place] [address] Kidney replaced by transplant (Primary Dx); Elevated [...] Purvis RN - 11/02/2022 3:27 PM CDT [facility] Interventional Radiology Patient Instructions Following Transplanted Kidney [...] after you are discharged ADDITIONAL INSTRUCTIONS: None [facility] INTERVENTIONAL RADIOLOGY DEPARTMENT Procedure Physician: Marco Enrique Pa-C Date of procedure: November 02, 2022 Telephone Numbers: [phone] Tuesday-Tuesday 7:30 am to 4:00 pm [phone] After 4:00 pm Tuesday-Tuesday, Weekends & Holidays. Ask for the Interventional Radiologist automation and controls manager. Someone is automation and controls manager 24 hrs/day [facility] toll free number: Tuesday-Tuesday 8:00 am to 4:30 pm [facility] Emergency Dept: [phone] documented in this encounter Medications at Time [...] pt. Pt tolerated oral intake and ambulation. OXANA dc'd. Pt discharged home accompanied by friend. [...] Elevated serum creatinine; Kidney replaced by transplant [facility] Procedure: IR Procedure Note Date/Time: 11/02/2022 [...] the procedure a time out was called Fellows Protocol: the Joint Commission Fellows Protocol was followed Preparation: Patient was prepped [...] 100 mcg Report given to: BOGDAN Oneil Humidifier Attendant: N/A Other Notes: Pt arrived to IR [...] trained, independent observer. SEDATION TIME: 14 minutes [id number] DESCRIPTION: The patient's right low abdomen was [...] trained, independent observer. SEDATION TIME: 14 minutes [id number] DESCRIPTION: The patient's right low abdomen was [...] IR Procedure Note (11/02/2022 2:57 PM CDT) [facility] - 11/02/2022 2:57 PM CDT Marco Enrique PA-C ? 11/02/2022 ??3:02 PM [facility] Procedure: IR Procedure Note Date/Time: 11/02/2022 2:57 PM Performed by: Macro Enrique PA-C Authorized by: Marco Enrique PA-C [...] procedure a time out was called ?? Fellows Protocol: the Joint Commission Fellows Protocol was followed ?? Preparation: Patient was [...] PROCEDURE/MINOR SURG ICAL ORDERABLES Performing Organization Address [facility] Co de Phone Number [address] [phone] * Surgical pathology exam - Transplant Renal (11/02/2022 2:52 PM CDT) Case Report Surgical Pathology Report ? Case: [id number] ? Authorizing Provider: ??Joseph Quintana MD ??Collected: ? 11/02/2022 02:52 PM ? Ordering Location: ? [facility] ? Received: ?11/02/2022 03:01 PM ? [address] [place] ? Pathologist: ? Stanton Barraza MD ? [...] component of this testing was completed at [facility] 11/11/2022 9:50 AM CDT [facility] Case Images 11/11/2022 9:50 AM CDT [facility] Tissue STRUCTURE OF TRANSPLANTED KIDNEY / Unknown Non-blood Collection / Unknown 11/02/2022 2:52 PM CDT 11/02/2022 3:01 PM CDT Comment:STAT/WEI processing required Joseph LARES - ROBERT AP Performing Organization Address City/[facility] Co de Phone Number SPECIAL[facility] LAB[facility] Specialty Lab [address] [facility], [address] [place] [address], [facility] [phone] [facility] Core Lab [address] [facility], [address] [place] [address], [place] [phone] [facility] Acute Care Lab [address] [facility], [address] [place] [address], [place] [phone] * (ABNORMAL) Glucose by meter (11/02/2022 1:34 PM CDT) GLUCOSE BY METER POCT 226(H) 70 - 99 mg/dL 11/02/2022 1:40 PM CDT [facility] POC Blood, Capillary BLOOD SPECIMEN / Unknown 11/02/2022 1:34 PM CDT 11/02/2022 1:40 PM CDT Joseph JONES POC T Performing Organization Address City/[facility]/ZIP Co de Phone Number [facility] POC [facility] Core Lab [address] [facility], [address] [place] [address], [facility] [phone] documented in this encounter Visit Diagnoses Diagnosis [...] this section may contain times in both ADDICTIONS RECOVERY SPECIALIST and CDT. Scheduled Medication Order 10/31/2022 11/01/2022 [...] procedure documented in this encounter Care Teams E Commerce Merchant Relationship Specialty Start Date End Date Momo Forbes MD PCP - General Family Practice 01/02/14 documented as of this encounter
--- OUTSIDE RECORDS SUMMARY | 2023-09-21 11:20 | XMS_ITS | Encounter Summary ---
Author Name Unknown Organization [place] Address [facility] [place] [address] Care Team Providers Care Die Lay Out Worker Name Role Phone Momo Forbes MD Primary Care Provider [phone] Reason for Visit * Reason Onset Date Comments Transplant Immunosuppression Management 11/04/19 Transplant Care Coordination 11/03/2022 Encounter Details Date Type Department Care Team (Late st Contact Info) Description 11/03/2022 Telephone [facility] Transplant Clinic [address] [place] [address] Gretta Frias RN Transplant Immunosuppression [...] placed. Biopsy findings discussed with patient's . [facility] labs will be obtained atF lab Tuesday11/08/2022 Gretta Frias RN Pole Maker [phone] * Addendum Note - Gretta Frias RN [...] MICRO GENE RAL ORDERABLES [facility] Inf. Diseases Diag. Lab [address] [facility], [address] [place] [address], [place] [phone] * BK Virus Quantitative, PCR (11/08/2022 11:16 AM CDT) Pathologist [facility] BK Virus DNA copies/mL Not Detected Not Detected copies/mL 11/09/2022 10:55 AM CDT [facility] Blood BLOOD SPECIMEN / Unknown Venipuncture / Unknown 11/08/2022 11:16 AM CDT 11/08/2022 11:17 AM CDT Narrative [facility] - 11/09/2022 10:55 AM CDT The real-time quantitative BK Virus assay was developed and its performance characteristics determined by the Infectious Diseases Diagnostic Laboratory at [facility]. The primers and probes for each [...] by the Infectious Diseases Diagnostic Laboratory at [facility]. The primers and probes for each [...] MICRO GENE RAL ORDERABLES [facility] Inf. Diseases Diag. Lab [address] [facility], [address] [place] [id number] [phone] * Tacrolimus by Tandem Mass Spectrometry (11/08/2022 11:16 AM CDT) [facility] Tacrolimus by Tandem Mass Spectrometry 9.8 [...] [facility] [address] [facility], [address] [place] [address], [place] [phone] documented in this encounter Visit Diagnoses Diagnosis Kidney transplanted- Primary Kidney replaced by transplant -donor kidney transplant recipient Kidney replaced by transplant Elevated serum creatinine Other nonspecific findings on examination of blood Elevated random blood glucose level Other abnormal glucose Acute pyelonephritis Acute pyelonephritis without lesion of renal medullary necrosis documented in this encounter Care Teams Die Lay Out Worker Relationship Specialty Start Date End Date Momo Forbes MD PCP - General Family Practice 01/02/14 documented as of this encounter
--- OUTSIDE RECORDS SUMMARY | 2023-09-21 11:20 | XMS_ITS | Encounter Summary ---
Author Name Unknown Organization [place] Address [address] [place] [address]. [place] [address] Care Team Providers Care Uat Tester Name Role Phone Momo Forbes MD Primary Care Provider [phone] Encounter Details Date Type Department Care Team (Late st Contact Info) Description 11/08/2022 11:45 AM CDT [facility] Laboratory [address] [place] [address] Kidney transplanted; Elevated serum creatinine; [...] MD LAB - URINE SURYA HURST LABORATORY [facility] Lab [address] [facility] Lab (no room number, 1st floor of clinic) [place] [address], [facility] [phone] * (ABNORMAL) Urine Culture (11/08/2022 11:27 AM [...] MICRO GENE RAL ORDERABLES Performing Organization Address City/[facility]/ZIP Co de Phone Number UU IDD LABORATORY [facility] Inf. Diseases Diag. Lab [address] [facility], [address] [place] [address], [facility] [phone] * (ABNORMAL) Protein random urine (11/08/2022 11:27 [...] LAB - URINE ORDE RABLES UU LABORATORY [facility] [place] [facility] Lab 500 [facility], Room 3-580 [place] [address] [phone] * (ABNORMAL) UA reflex to Microscopic (11/08/2022 [...] 11/08/2022 11:39 AM CDT LV LABORATORY Specific [place] Urine 1.015 1.003 - 1.035 11/08/2022 11:39 [...] MD LAB - URINE CHELIE ARIS LABORATORY [facility] Lab [address] [facility] Lab (no room number, 1st floor of clinic) [place] [address], [facility] [phone] * HLA Lukasz, CPRA (11/08/2022 11:16 AM CDT) UNOS CPRA 50 11/10/2022 5:15 PM CDT UU HLA LABORATORY UNACCEPTABLE ANTIGENS A:2 B:51 11/10/2022 5:15 PM CDT [facility] Blood STRUCTURE OF LEFT UPPER LIMB / Unknown Venipuncture / Unknown 11/08/2022 11:16 AM CDT 11/08/2022 11:16 AM CDT Joseph Quintana MD LAB - IMMUNOLOGY ORDERABLES U HLA LABORATORY Immunology/Histocomp atability [facility] [address] [facility] [address], Room 3[address] [phone] * HLA Lukasz Class II, Single Antigen [...] IMMUNOLOGY ORDERABLES U HLA LABORATORY Immunology/Histocomp atability [facility] [address] [facility] [address], Room [address] [phone] * HLA Lukasz Class I, Single Antigen [...] ORDERABLES UU HLA LABORATORY Immunology/Histocomp atability [facility] [address], Room [address] [phone] * HLA Donor Specific Antibody (11/08/2022 11:16 [...] - IMMUNOLOGY ORDERABLES HLA LABORATORY Immunology/Histocomp atability [facility] 500 [facility], [address] [address], [facility] [phone] * PRA Donor Specific Antibody (11/08/2022 11:16 AM CDT) Blood STRUCTURE OF LEFT UPPER LIMB / Unknown Venipuncture / Unknown 11/08/2022 11:16 AM CDT 11/08/2022 11:16 AM CDT Joseph Quintana MD LAB - IMMUNOLOGY ORDERABLES Performing Organization Address City/[facility]/ZIP Co de Phone Number HLA LABORATORY Immunology/Histocomp atability [facility] 500 [facility], [address] [phone] * BK Virus Quantitative, PCR (11/08/2022 11:16 AM CDT) Pathologist [facility] BK Virus DNA copies/mL Not Detected Not Detected copies/mL 11/09/2022 10:55 AM CDT [facility] IDD LABORATORY Blood BLOOD SPECIMEN / Unknown Venipuncture / Unknown 11/08/2022 11:16 AM CDT 11/08/2022 11:17 AM CDT Narrative [facility] IDD LABORATORY - 11/09/2022 10:55 AM CDT The real-time quantitative BK Virus assay was developed and its performance characteristics determined by the [facility] at [facility]. The primers and probes for each [...] by the [facility]. The primers and probes for each [...] MICRO GENE RAL ORDERABLES [facility] IDD LABORATORY [facility] Inf. Diseases Diag. Lab [address] [facility], [address] [place] [address], [facility] [phone] * Tacrolimus by Tandem Mass Spectrometry (11/08/2022 11:16 AM CDT) [facility] Tacrolimus by Tandem Mass Spectrometry 9.8 5.0 [...] and its performance characteristics determined by the [facility] [...] UM SPECIAL DRUG/BGEN UM Special Drug/BGEN 500 [facility], [address] [place] [address], [facility] [phone] * (ABNORMAL) CBC with platelets (11/08/2022 11:16 AM CDT) [facility] WBC Count 4.6 4.0 - 11.0 10e3/uL [...] LAB - BLOOD SURYA HURST LV LABORATORY [facility] Lab [address] [facility] Lab (no room number, 1st floor of clinic) [place] [address] [phone] * (ABNORMAL) Basic metabolic panel (11/08/2022 11:16 [...] LAB - BLOOD SURYA HURST UU LABORATORY [facility] Core Lab [address] [facility], Room 3[address] [place] [phone], [facility] [phone] documented in this encounter Visit Diagnoses Diagnosis Kidney transplanted Kidney replaced by transplant Elevated serum creatinine Other nonspecific findings on examination of blood -donor kidney transplant recipient Kidney replaced by transplant Elevated random blood glucose level Other abnormal glucose Acute pyelonephritis Acute pyelonephritis without lesion of renal medullary necrosis documented in this encounter Care Teams Uat Tester Relationship Specialty Start Date End Date Momo Forbes MD PCP - General Family Practice 01/02/14 documented as of this encounter
--- OUTSIDE RECORDS SUMMARY | 2023-09-21 11:20 | XMS_ITS | Encounter Summary ---
Author Name Unknown Organization [place] Address [address] [facility] [place] [address] Care Team Providers Care Pulling Machine Operator Name Role Phone Momo Forbes MD Primary Care Provider [phone] Encounter Details Date Type Department Care Team (Late st Contact Info) Description 10/28/2022 Telephone [facility] Interventional Radiology 500 [place] [address] Carmen Luevano, BOGDAN Social History [...] Coronavirus/COVID-19? No / Unsure 10/25/2022 12:16 PM SEWAGE SCREEN OPERATOR documented as of this encounter Plan of Treatment Not on file documented as of this encounter Visit Diagnoses Not on filedocumented in this encounter Care Teams Pulling Machine Operator Relationship Specialty Start Date End Date Momo Forbes MD PCP - General Family Practice 01/02/14 documented as of this encounter
--- OUTSIDE RECORDS SUMMARY | 2023-09-21 11:20 | XMS_ITS | Encounter Summary ---
Author Name Unknown Organization [place] Address [address] [place] [address]. [place] [address] Care Team Providers Care Checking Clerk Name Role Phone Momo Forbes MD [...] on filedocumented in this encounter Care Teams Checking Clerk Relationship Specialty Start Date End Date Momo Forbes MD PCP - General Family Practice 01/02/14 documented as of this encounter
--- OUTSIDE RECORDS SUMMARY | 2023-09-21 11:20 | XMS_ITS | Encounter Summary ---
Author Name Unknown Organization [place] Address [address] [facility] [place] [address] Care Team Providers Care Continuous Improvement Engineer Name Role Phone Momo Forbes MD Primary Care Provider Encounter Details Date Type Department Care Team (Late st Contact Info) Description 10/28/2022 Telephone [facility] Interventional Radiology 500 [place] [address] Carmen Luevano, BOGDAN Social History [...] Coronavirus/COVID-19? Unable to assess 10/28/2022 12:48 PM PULP MAKING PLANT OPERATOR documented as of this encounter Plan of Treatment Not on file documented as of this encounter Visit Diagnoses Not on filedocumented in this encounter Care Teams Continuous Improvement Engineer Relationship Specialty Start Date End Date Momo Forbes MD PCP - General Family Practice 01/02/14 documented as of this encounter
--- OUTSIDE RECORDS SUMMARY | 2023-09-21 11:20 | XMS_ITS | Encounter Summary ---
Author Name Unknown Organization [place] Address [address] [facility] [place] [address] Care Team Providers Care Design Printing Machine Set Up Operator Name Role Phone Momo Forbes MD Primary Care Provider Encounter Details Date Type Department Care Team (Late st Contact Info) Description 11/02/[address] [facility] Laboratory 500 [place] [phone] Gino Wan Social History Tobacco Use Types [...] filedocumented in this encounter Care Teams Design Printing Machine Set Up Operator Relationship Specialty Start Date End Date Momo Forbes MD PCP - General Family Practice 01/02/14 documented as of this encounter
--- OUTSIDE RECORDS SUMMARY | 2023-09-21 11:20 | XMS_ITS | Encounter Summary ---
Author Name Unknown Organization [place] Address [address] [place] [address]. [place] [address] Care Team Providers Care Lead Software Development Engineer Name Role Phone Momo Forbes MD [...]
--- OUTSIDE RECORDS SUMMARY | 2023-09-21 11:20 | XMS_ITS | Encounter Summary ---
Author Name Unknown Organization [place] Address [address] [place] [address]. [place] [address] Care Team Providers Care Field Crop Harvest Contractor Name Role Phone Momo Forbes MD Primary Care Provider + [phone] Encounter Details Date Type Department Care Team (Late st Contact Info) Description 10/28/2022 Orders Only [facility] Transplant Clinic [address] [place] [phone] Gretta Peacock RN Kidney transplanted (Primary [...] Coronavirus/COVID-19? Unable to assess 10/28/2022 12:48 PM JANITOR documented as of this encounter Plan of [...] LAB - URINE ORDE ARIS UU LABORATORY [facility] Core Lab 500 [facility], [address] [phone] [phone] * (ABNORMAL) UA reflex to Microscopic (11/08/2022 [...] 11/08/2022 11:39 AM CDT LV LABORATORY Specific [place] Urine 1.015 1.003 - 1.035 11/08/2022 11:39 [...] LAB - URINE SURYA HURST LV LABORATORY [facility] Lab [address] [facility] (no room number, 1st floor of clinic) [place] [address], [facility] [phone] * (ABNORMAL) CBC with platelets (11/08/2022 11:16 [...] MD LAB - BLOOD ORDBea HURST LABORATORY [facility] Lab [address] [facility] Lab (no room number, 1st floor of [facility]) [place] [address], [facility] [phone] * (ABNORMAL) Basic metabolic panel (11/08/2022 11:16 AM CDT) [facility] [address] Sodium 140 136 - 145 mmol/L 11/08/2022 [...] BLOOD SURYA HURST UU LABORATORY [facility] Core Lab [address] [facility], Room [address] [place] [phone], [facility] [phone] documented in this encounter Visit Diagnoses Diagnosis Kidney transplanted- Primary Kidney replaced by transplant Elevated serum creatinine Other nonspecific findings on examination of blood documented in this encounter Care Teams Field Crop Harvest Contractor Relationship Specialty Start Date End Date Momo Forbes MD PCP - General Family Practice 01/02/14 documented as of this encounter
--- OUTSIDE RECORDS SUMMARY | 2023-09-21 11:20 | XMS_ITS | Encounter Summary ---
Author Name Unknown Organization [place] Address [address] [place] [address]. [place] [address] Care Team Providers Care Fish Hatchery Superintendent Name Role Phone Momo Forbes MD Primary Care Provider [phone] Reason for Visit * Reason Onset Date Comments Transplant Care Coordination 11/09/2022 RX Encounter Details Date Type Department Care Team (Late st Contact Info) Description 11/09/[address] [facility] Transplant Clinic [address] [place] [phone] Gretta Peacock RN Transplant Care Coordination [...] CB to confirm message. Gretta Peacock RN Tire Building Supervisor [phone] ADDENDUM: , Tete v/u of starting cipro X14 day for UTI. Tacrolimus level 9.8 at 12 hours, on 11/08/22. Goal 4-6. Current dose 1 mg in AM, 0.5 mg in PM Dose changed to 0.5 mg in AM, 0.5 mg in PM Recheck level in 1-2 weeks Discussed with patient's Gretta Peacock RN Tire Building Supervisor [phone] documented in this encounter Plan of Treatment [...] LAB - BLOOD SURYA HURST LV LABORATORY [facility] Lab [address] [facility] Lab (no room number, 1st floor of clinic) [place] [address], [facility] [phone] * (ABNORMAL) Basic metabolic panel (11/30/2022 11:33 [...] LAB - BLOOD SURYA HURST UU LABORATORY [facility] [place] Core Lab 500 [facility], Room [address] [address], [facility] [phone] * Tacrolimus by Tandem Mass Spectrometry (11/30/2022 11:33 AM CDT) Pathologist [facility] Tacrolimus by Tandem Mass Spectrometry 7.5 5.0 [...] and its performance characteristics determined by the [facility], [...] UM SPECIAL DRUG/BGEN UM Special Drug/BGEN 500 [facility], [address] [phone] documented in this encounter Visit Diagnoses Diagnosis Urinary tract infection- Primary Urinary tract infection, site not specified 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
--- OUTSIDE RECORDS SUMMARY | 2023-09-21 11:21 | XMS_ITS | Encounter Summary ---
Author Name Unknown Organization [place] Address [address] [place] [address]. [place] [address] Care Team Providers Care Net Development Manager Name Role Phone Momo Forbes MD Primary Care Provider + [phone] Reason for Referral * Therapeutic Imaging/IR (Routine: Next available opening) - Closed Specialty Diagnoses / Procedures Referred By Contac t Referred To Contact Radiology. Diagnoses Elevated serum creatinine Procedures IR Renal Biopsy Right IR Referral outpatient referral Joseph Quintana MD [address] [place] [address] [address] [facility] [address] [place] [address] Referral ID Status Reason Start Date Expiration Date Visits Re quested Visits Authorized [id number] Closed 10/26/2022 10/26/2023 1 1 RVISOR ORNAMENTAL IRONWORKING * Diagnostic Imaging NM (Routine) - Closed Specialty Diagnoses / Procedures Referred By Contac t Referred To Contact Radiology. Diagnoses Elevated serum creatinine Procedures NM Renogram with Lasix Joseph Quintana MD [address] [place] [address] [address] [facility] [address] [place] [address] Referral ID Status Reason Start Date Expiration Date Visits Re quested Visits Authorized [id number] Closed 10/26/2022 10/26/2023 1 1 RVISOR ORNAMENTAL IRONWORKING Encounter Details Date Type Department Care Team (Late st Contact Info) Description 10/26/2022 Telephone [facility] Transplant Clinic [address] [place] [phone] Gretta Peacock RN Social History Tobacco Use [...] Coronavirus/COVID-19? No / Unsure 10/25/2022 12:16 PM SUPERVISOR ORNAMENTAL IRONWORKING documented as of this encounter Miscellaneous Notes [...] pending results of renogram Gretta Peacock RN Customer Account Specialist [phone] RVISOR ORNAMENTAL IRONWORKING documented in this encounter Plan of Treatment [...] trained, independent observer. SEDATION TIME: 14 minutes [id number] DESCRIPTION: The patient's right low abdomen was [...] trained, independent observer. SEDATION TIME: 14 minutes [id number] DESCRIPTION: The patient's right low abdomen was [...] NM Renogram with Lasix (10/28/2022 2:59 PM SUPERVISOR ORNAMENTAL IRONWORKING) Anatomical Region Laterality Modality Abdomen/Pelvis Nuclear Medicine Impressions 10/28/2022 3:04 PM SUPERVISOR ORNAMENTAL IRONWORKING Impression: 1. Normal perfusion of the transplanted kidney. 2. 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 3. No evidence of obstruction or leakage of the transplanted kidney. KJ THOMPSON MD Narrative 10/28/2022 3:04 PM SUPERVISOR ORNAMENTAL IRONWORKING Examination: ??NM transplant RENOGRAM WITH LASIX Date: [...] blood documented in this encounter Care Teams Net Development Manager Relationship Specialty Start Date End Date Momo Forbes MD PCP - General Family Practice 01/02/14 documented as of this encounter
--- OUTSIDE RECORDS SUMMARY | 2023-09-21 11:21 | XMS_ITS | Encounter Summary ---
Author Name Unknown Organization [place] Address [address] [facility] [place] [address] Care Team Providers Care Nurse Case Management Name Role Phone Momo Forbes MD Primary Care Provider + [phone] Encounter Details Date Type Department Care Team (Late st Contact Info) Description 10/22/2022 Telephone [facility] Transplant Clinic [address] [place] [phone] Gretta Peacock, RN Social History Tobacco [...] Coronavirus/COVID-19? No / Unsure 10/22/2022 7:28 AM TECHNICAL SALES REPRESENTATIVES documented as of this encounter Miscellaneous Notes [...] for CB to confirm message Gretta Peacock canteen managerOverlock Collar Setter [phone] NICAL SALES REPRESENTATIVES documented in this encounter Plan of Treatment Not on file documented as of this encounter Results * (ABNORMAL) CBC with platelets (10/25/2022 3:18 PM TECHNICAL SALES REPRESENTATIVES) WBC Count 6.7 4.0 - 11.0 10e3/uL 10/25/2022 3:20 PM TECHNICAL SALES REPRESENTATIVES LV LABORATORY RBC Count 5.16 4.40 - 5.90 10e6/uL 10/25/2022 3:20 PM TECHNICAL SALES REPRESENTATIVES LV LAB[facility]ORY Hemoglobin 13.9 13.3 - 17.7 g/dL 10/25/2022 3:20 PM TECHNICAL SALES REPRESENTATIVES [facility] Hematocrit 41.7 40.0 - 53.0 % 10/25/2022 3:20 PM TECHNICAL SALES REPRESENTATIVES [facility] LAB[facility] MCV 81 78 - 100 fL 10/25/2022 3:20 PM TECHNICAL SALES REPRESENTATIVES LV LAB[facility]ORY MCH 26.9 26.5 - 33.0 pg 10/25/2022 3:20 PM TECHNICAL SALES REPRESENTATIVES LV LAB[facility]ORY MCHC 33.3 31.5 - 36.5 g/dL 10/25/2022 3:20 PM TECHNICAL SALES REPRESENTATIVES LV LAB[facility] RDW 15.4(H) 10.0 - 15.0 % 10/25/2022 3:20 PM TECHNICAL SALES REPRESENTATIVES [facility] Platelet Count 115(L) 150 - 450 10e3/uL 10/25/2022 3:20 PM TECHNICAL SALES REPRESENTATIVES [facility] Blood BLOOD SPECIMEN / Unknown Venipuncture / Unknown 10/25/2022 3:18 PM TECHNICAL SALES REPRESENTATIVES 10/25/2022 3:18 PM TECHNICAL SALES REPRESENTATIVES Joseph Quintana MD LAB - BLOOD SURYA HURST LABORATORY [facility] [address] [facility] (no room number, 1st floor of clinic) [place] [address], [facility] [phone] * Tacrolimus by Tandem Mass Spectrometry (10/25/2022 2:46 PM TECHNICAL SALES REPRESENTATIVES) Pathologist [facility] Tacrolimus by Tandem Mass Spectrometry 8.7 5.0 - 15.0 ug/L 10/25/2022 10:35 PM TECHNICAL SALES REPRESENTATIVES UM SPECIAL DRUG/BGEN Comment: Tacrolimus Reference Range [...] Last Dose Date 10/24/2022 10/25/2022 10:35 PM TECHNICAL SALES REPRESENTATIVES UM SPECIAL DRUG/BGEN Tacrolimus Last Dose Time 9:00 PM 10/25/2022 10:35 PM TECHNICAL SALES REPRESENTATIVES UM SPECIAL DRUG/BGEN Blood STRUCTURE OF RIGHT UPPER LIMB / Unknown Venipuncture / Unknown 10/25/2022 2:46 PM TECHNICAL SALES REPRESENTATIVES 10/25/2022 2:46 PM TECHNICAL SALES REPRESENTATIVES Narrative UM SPECIAL DRUG/BGEN - 10/25/2022 10:35 PM TECHNICAL SALES REPRESENTATIVES This test was developed and its performance characteristics determined by the [facility], [...] UM SPECIAL DRUG/BGEN UM Special Drug/BGEN [address] [facility] [address] Building, [address] [address], [facility] [phone] * (ABNORMAL) Basic metabolic panel (10/25/2022 2:42 PM TECHNICAL SALES REPRESENTATIVES) Sodium 136 136 - 145 mmol/L 10/25/2022 6:50 PM TECHNICAL SALES REPRESENTATIVES UU LABORATORY Potassium 4.5 3.4 - 5.3 mmol/L 10/25/2022 6:50 PM TECHNICAL SALES REPRESENTATIVES UU LABORATORY Chloride 100 98 - 107 mmol/L 10/25/2022 6:50 PM TECHNICAL SALES REPRESENTATIVES UU LABORATORY Carbon Dioxide (CO2) 24 22 - 29 mmol/L 10/25/2022 6:50 PM TECHNICAL SALES REPRESENTATIVES UU LABORATORY Anion Gap 12 7 - 15 mmol/L 10/25/2022 6:50 PM TECHNICAL SALES REPRESENTATIVES UU LABORATORY Urea Nitrogen 45.2(H) 8.0 - 23.0 mg/dL 10/25/2022 6:50 PM TECHNICAL SALES REPRESENTATIVES UU LABORATORY Creatinine 2.53(H) 0.67 - 1.17 mg/dL 10/25/2022 6:50 PM TECHNICAL SALES REPRESENTATIVES UU LABORATORY Calcium 10.3(H) 8.8 - 10.2 mg/dL 10/25/2022 6:50 PM TECHNICAL SALES REPRESENTATIVES UU LABORATORY Glucose 342(H) 70 - 99 mg/dL 10/25/2022 6:50 PM TECHNICAL SALES REPRESENTATIVES U[facility] LAB[facility]ATORY GFR Estimate 26(L) >60 mL/min/1.7 3m2 10/25/2022 6:50 PM TECHNICAL SALES REPRESENTATIVES U[facility] LABORATORY Comment:eGFR calculated us2020 CKD-EPI equation. Blood BLOOD SPECIMEN / Unknown Venipuncture / Unknown 10/25/2022 2:42 PM TECHNICAL SALES REPRESENTATIVES 10/25/2022 2:42 PM TECHNICAL SALES REPRESENTATIVES Joseph Quintana MD LAB - BLOOD ORDBea HURST UU LABORATORY [facility] [place] Core Lab 500 [facility] J [facility], [address] [address], [facility] [phone] documented in this encounter Visit Diagnoses Diagnosis Kidney transplanted- Primary Kidney replaced by transplant documented in this encounter Care Teams Nurse Case Management Relationship Specialty Start Date End Date Momo Forbes MD PCP - General Family Practice 01/02/14 documented as of this encounter
--- OUTSIDE RECORDS SUMMARY | 2023-09-21 11:21 | XMS_ITS | Encounter Summary ---
Author Name Unknown Organization [place] Address [facility] [place] [address] Care Team Providers Care Sales Solutions Associate Name Role Phone Momo Forbes MD Primary Care Provider Encounter Details Date Type Department Care Team (Late st Contact Info) Description 10/21/2022 Telephone [facility] Interventional Radiology [address] [place] [address] Mayo Suarez, RN Social History [...] filedocumented in this encounter Care Teams Sales Solutions Associate Relationship Specialty Start Date End Date Momo Forbes MD PCP - General Family Practice 01/02/14 documented as of this encounter
--- OUTSIDE RECORDS SUMMARY | 2023-09-21 11:21 | XMS_ITS | Encounter Summary ---
Author Name Unknown Organization [place] Address [address] [facility] [place] [address] Care Team Providers Care Marine Electrician Name Role Phone Momo Forbes MD Primary Care Provider + [phone] Reason for Referral * Therapeutic Imaging/IR (Routine) - Closed Specialty Diagnoses / Procedures Referred By Contac t Referred To Contact Radiology. Diagnoses Elevated serum creatinine Hydronephrosis Procedures IR Nephrostomy Tube Placement Right Kei Quintana MD [address] [facility] EMERGENCY [facility]PART[facility] [place]JAN [address] [facility] [address] [place] [address] Referral ID Status Reason Start Date Expiration Date Visits Re quested Visits Authorized [id number] Closed 10/21/2022 10/21/2023 1 1 DUCT MECHANIC Encounter Details Date Type Department Care Team (Late st Contact Info) Description 10/21/2022 Orders Only [facility] Interventional Radiology [address] [place] [phone] Harriet Dale APRN LOG INSPECTOR [address] [place] [address] Elevated serum creatinine; Hydronephrosis Social [...] Quintana made aware of IR recommendations via Flamsred messaging. Harriet Dale DNP, APRN Interventional Radiology IR on-call pager: [phone] DUCT MECHANIC documented in this encounter Plan of Treatment Not on file documented as of this encounter Results * IR Nephrostomy Tube Placement Right (10/22/2022 11:04 AM AIR DUCT MECHANIC) Anatomical Region Laterality Modality Abdomen/Pelvis Radio Fluoroscop y Impressions 10/22/2022 11:31 AM AIR DUCT MECHANIC IMPRESSION: 1. Chiba needle placed into a right lower quadrant renal transplant mid kidney anterior calyx under ultrasound guidance. 2. Antegrade nephrostogram demonstrated adequate emptying. No filling defect. No percutaneous nephrostomy tube placed. 3. If there is still concern for urinary obstruction, Nuclear Medicine renogram could be performed for further evaluation. ISAIAS RIOS MD Narrative 10/22/2022 11:31 AM AIR DUCT MECHANIC PROCEDURES 10/22/2022 11:04 AM: 1. Ultrasound guided [...] patient remained stable throughout the procedure. ATTENDING [id number] SEDATION TIME: 15 minutes. FLUOROSCOPY TIME: 0.3 [...] delayed imaging. No filling defect. Procedure Note sIaias Rios MD - 10/22/2022 PROCEDURES 10/22/2022 11:04 [...] patient remained stable throughout the procedure. ATTENDING [id number] SEDATION TIME: 15 minutes. FLUOROSCOPY TIME: 0.3 [...] Hydronephrosis documented in this encounter Care Teams Marine Electrician Relationship Specialty Start Date End Date Momo Forbes MD PCP - General Family Practice 01/02/14 documented as of this encounter
--- OUTSIDE RECORDS SUMMARY | 2023-09-21 11:21 | XMS_ITS | Encounter Summary ---
Author Name Unknown Organization [place] Address [address] [facility] [place] [address] Care Team Providers Care Water Inspector Name Role Phone Momo Forbes MD Primary Care Provider + [phone] Encounter Details Date Type Department Care Team (Late st Contact Info) Description 10/26/2022 Orders Only [facility] Interventional Radiology [address] [place] [address] Chemo Gupta PA-C [address] [place] [facility] [address] [place] [address] Social History Tobacco Use Types [...] Coronavirus/COVID-19? No / Unsure 10/25/2022 12:16 PM SECURITY SUPPORT ANALYST documented as of this encounter Progress Notes * Chemo Gupta PA-C - 10/26/2022 1:13 PM CST [place] G[place]rie [phone] Authorizing: Joseph Quintana MD in SOT Priority: [...] per site protocol Acknowledge Call Back # [phone] Is the patient on aspirin, Plavix or blood thinners? Yes - Patient may be asked to stop taking medications RITY SUPPORT ANALYST documented in this encounter Plan of Treatment Not on file documented as of this encounter Visit Diagnoses Not on filedocumented in this encounter Care Teams Water Inspector Relationship Specialty Start Date End Date Momo Forbes MD PCP - General Family Practice 01/02/14 documented as of this encounter
--- OUTSIDE RECORDS SUMMARY | 2023-09-21 11:21 | XMS_ITS | Encounter Summary ---
Author Name Unknown Organization [place] Address [address] [place] [address] Care Team Providers Care Factory Helper Name Role Phone Momo Forbes MD Primary Care Provider + [phone] Reason for Referral * Therapeutic Imaging/IR (Routine) - Closed Specialty Diagnoses / Procedures Referred By Contac t Referred To Contact Radiology. Diagnoses Elevated serum creatinine Hydronephrosis Procedures IR Nephrostomy Tube Placement Right Joseph Quintana MD [address] [facility] [address] [facility] [address] [place] [address] Referral ID Status Reason Start Date Expiration Date Visits Re quested Visits Authorized [id number] Closed 10/21/2022 10/21/2023 1 1 LINER INSTALLER Encounter Details Date Type Department Care Team (Latest Contact Info) Description 10/22/2022 7:28 AM HEADLINER INSTALLER - 10/22/2022 12:15 PM HEADLINER INSTALLER Hospital Encounter [facility] [address] [place] [address] [place] [address] Joseph Quintana MD [address] [facility] [address] [facility] [address] [place], [place] [id number] Isaias Rios MD [address] [id number] Elevated serum creatinine; Hydronephrosis Discharge Disposition: Home [...] Coronavirus/COVID-19? No / Unsure 10/22/2022 7:28 AM HEADLINER INSTALLER documented as of this encounter Last Filed Vital Signs Vital Sign Reading Time Taken Comments Blood Pressure 129/70 10/22/2022 12:15 PM HEADLINER INSTALLER Pulse 61 10/22/2022 11:30 AM HEADLINER INSTALLER Temperature 37.2 ??C (98.9 ??F) 10/22/2022 8:00 AM CS T Respiratory Rate 15 10/22/2022 11:00 AM HEADLINER INSTALLER Oxygen Saturation 95% 10/22/2022 12:15 PM HEADLINER INSTALLER Inhaled Oxygen Concentration - - Weight 136.1 kg (300 lb) 10/22/2022 8:00 AM HEADLINER INSTALLER Height 182.9 cm (6') 10/22/2022 8:00 AM HEADLINER INSTALLER Body Mass Index 40.69 10/22/2022 8:00 AM HEADLINER INSTALLER documented in this encounter Discharge Instructions * Discharge Instructions* Catrina Ford RN - 10/22/2022 11:41 AM HEADLINER INSTALLER [facility] Dis[facility] Instructions for Nephrostogram After you go [...] can remove the dressing after 24 hours. [facility] INTERVENTIONAL RADIOLOGY DEPARTMENT Procedure Physician: Dr. Rios Date:October 22, 2022 Telephone Numbers: [phone] Tuesday-Tuesday 7:30 am to 4:00 pm [phone] After 4:30 PM Tuesday-Tuesday, Weekends and Holidays. Ask for Interventional Radiologiston Call. Someone is available 24 hours a day. [facility] toll free number: Tuesday- Tuesday 8:00AM -4:30PM. LINER INSTALLER documented in this encounter Medications at Time [...] Discharge instructions gone over, patient reports understanding. LINER INSTALLER * Catrina Ford RN - 10/22/2022 11:42 AM CST Patient arrived from s/t nephrostogram. VSS, alert and oriented. Orders for bedrest until 12pm. Eating and drinking. BG 268, patient self administered short acting insulin per his orders. RLQ dressing C/D/I. LINER INSTALLER * Catrina Ford RN - 10/22/2022 9:10 AM CST Prep completed for right nephrostomy tube placement. Patient type II diabetic, held am long acting and short acting insulin, BG at 0815 282, INR 1.36. Took AM Eliquis per instructions. IV in L FA, infusing. Voided. 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 Consent signed. Friend Tete in room with [phone] LINER INSTALLER documented in this encounter Procedure Notes * Isaias Rios MD - 10/22/2022 10:54 AM CSTAssociated Order(s): IR Procedure Note [facility] Procedure: IR Procedure Note Date/Time: 10/22/2022 10:53 [...] the procedure a time out was called [place] Protocol: the Joint Commission [place] Protocol was followed Preparation: Patient was prepped [...] present for 1:1 monitoring during sedation: 15 LINER INSTALLER documented in this encounter Miscellaneous Notes * [...] time: 1050 Report given to: Gladis MCFADDEN It Instructor: none Other Notes: Pt arrived to IR room 4 from . Consent reviewed, pt confirmed. Pt denies any questions or concerns regarding procedure. Pt positioned supine and monitored per protocol. RLQ site cleansed and dressed per protocol. Pt tolerated procedure without any noted complications. Pt transferred back to . LINER INSTALLER * Pre-Procedure - Shiva Villalpando - 10/22/2022 [...] data, medications, and the plan for sedation LINER INSTALLER documented in this encounter Plan of Treatment Not on file documented as of this encounter Procedures Procedure Name Priority Date/Time Associated Diagnosis Comments GLUCOSE BY METER Routine 10/22/2022 11:2 1 AM HEADLINER INSTALLER IR NEPHROSTOMY TUBE PLACEMENT RIGHT Routine 10/22/2022 11:04 AM HEADLINER INSTALLER Elevated serum creatinine Hydronephrosis IR PROCEDURE NOTE Routine 10/22/2022 10: 53 AM HEADLINER INSTALLER GLUCOSE BY METER Routine 10/22/2022 8:32 AM HEADLINER INSTALLER INR STAT 10/22/2022 8:25 AM HEADLINER INSTALLER documented in this encounter Results * (ABNORMAL) Glucose by meter (10/22/2022 11:21 AM HEADLINER INSTALLER) Pathologist [facility] GLUCOSE BY METER POCT 268(H) 70 - 99 mg/dL 10/22/2022 11:28 AM HEADLINER INSTALLER [facility] Blood, Capillary BLOOD SPECIMEN / Unknown 10/22/2022 11:21 AM HEADLINER INSTALLER 10/22/2022 11:28 AM HEADLINER INSTALLER Joseph Quintana MD LAB - BEAKER POC T [facility] POC [employer] [facility] Core Lab [address] [facility], Room [address] [place] [phone] [phone] * IR Nephrostomy Tube Placement Right (10/22/2022 11:04 AM HEADLINER INSTALLER) Anatomical Region Laterality Modality Abdomen/Pelvis Radio Fluoroscop y Impressions 10/22/2022 11:31 AM HEADLINER INSTALLER IMPRESSION: 1. Chiba needle placed into a right lower quadrant renal transplant mid kidney anterior calyx under ultrasound guidance. 2. Antegrade nephrostogram demonstrated adequate emptying. No filling defect. No percutaneous nephrostomy tube placed. 3. If there is still concern for urinary obstruction, Nuclear Medicine renogram could be performed for further evaluation. ISAIAS RIOS MD Narrative 10/22/2022 11:31 AM HEADLINER INSTALLER PROCEDURES 10/22/2022 11:04 AM: 1. Ultrasound guided [...] patient remained stable throughout the procedure. ATTENDING [id number] SEDATION TIME: 15 minutes. FLUOROSCOPY TIME: 0.3 [...] patient remained stable throughout the procedure. ATTENDING [id number] SEDATION TIME: 15 minutes. FLUOROSCOPY TIME: 0.3 [...] * IR Procedure Note (10/22/2022 10:53 AM HEADLINER INSTALLER) [facility] - 10/22/2022 10:53 AM HEADLINER INSTALLER Isaias Rios MD ? 10/22/2022 10:54 AM [facility] Procedure: IR Procedure Note Date/Time: 10/22/2022 10:53 [...] procedure a time out was called ?? [place] Protocol: the Joint Commission [place] Protocol was followed ?? Preparation: Patient was [...] Isaias Rios MD PROCEDURE/MINOR CARLOS GICAL ORDERABLES [facility] [address] [place], [place] [phone] [place] [address] * (ABNORMAL) Glucose by meter (10/22/2022 8:32 AM HEADLINER INSTALLER) GLUCOSE BY METER POCT 282(H) 70 - 99 mg/dL 10/22/2022 8:38 AM HEADLINER INSTALLER [facility] P[facility] Blood, Capillary BLOOD SPECIMEN / Unknown 10/22/2022 8:32 AM HEADLINER INSTALLER 10/22/2022 8:38 AM HEADLINER INSTALLER Joseph Quintana MD LAB - BEAKER POC T [facility] POC [facility] Core Lab [address] [facility], Room [address] [place] [phone], [facility] [phone] * (ABNORMAL) INR (10/22/2022 8:25 AM HEADLINER INSTALLER) INR 1.36(H) 0.85 - 1.15 10/22/2022 8:53 AM HEADLINER INSTALLER [facility] Blood VENOUS LINE / Unknown Venipuncture / Unknown 10/22/2022 8:25 AM HEADLINER INSTALLER 10/22/2022 8:28 AM HEADLINER INSTALLER Harriet Dale APRN EMPLOYEE HEALTH NURSE LAB - BLOOD ORDERABLES [facility] [place] Core Lab [address] [facility], [address] [place] [address], [facility] [phone] documented in this encounter Visit Diagnoses Diagnosis [...] physician., IR Intra-procedure $Given 10/22/2022 10:35 AM HEADLINER INSTALLER 50 mcg iodixanol (VISIPAQUE 320) injection 100 mL 100 mL, Intravenous, ONCE, On Tue10/22/22 at 1030, For 1 dose $Given 10/22/2022 11:05 AM HEADLINER INSTALLER 5 mLs lidocaine 1 % 1-30 mL [...] $Given by Other Clinician 10/22/2022 10:57 AM HEADLINER INSTALLER 6 mLs midazolam (VERSED) injection 0.5-2 mg [...] dose., IR Intra-procedure $Given 10/22/2022 10:35 AM HEADLINER INSTALLER 1 mg sodium chloride 0.9% infusion at 75 mL/hr, Intravenous, CONTINUOUS, IF PATIENT IS RECEIVING RENAL DIALYSIS, RN to reduce rate of 0.9 % sodium chloride IV solution to 10 mL /hour (TKO) IV infusion to prevent fluid overload., IR Pre-procedure, Starting on Tue10/22/22 at 0800, Until Tue10/22/22 at 1318 $New Bag 10/22/2022 8:48 AM HEADLINER INSTALLER 75 mL/hr documented in this encounter Active and Recently Administered Medications Times are shown in HEADLINER INSTALLER. Scheduled Medication Order 10/20/2022 10/21/2022 10/22/2022 iodixanol [...] RN) documented in this encounter Care Teams Factory Helper Relationship Specialty Start Date End Date Momo Forbes MD PCP - General Family Practice 01/02/14 documented as of this encounter
--- OUTSIDE RECORDS SUMMARY | 2023-09-21 11:21 | XMS_ITS | Encounter Summary ---
Author Name Unknown Organization [place] Address [address] [place] [address]. [place] [address] Care Team Providers Care Creative Recruiter Name Role Phone Momo Forbes MD Primary [...] Coronavirus/COVID-19? No / Unsure 10/22/2022 7:28 AM SHOP LEAD documented as of this encounter Plan of Treatment Not on file documented as of this encounter Visit Diagnoses Not on filedocumented in this encounter Care Teams Creative Recruiter Relationship Specialty Start Date End Date Momo Forbes MD PCP - General Family Practice 01/02/14 documented as of this encounter
--- OUTSIDE RECORDS SUMMARY | 2023-09-21 11:21 | XMS_ITS | Encounter Summary ---
Author Name Unknown Organization [place] Address [address] [place] [address]. [place] [address] Care Team Providers Care Senior Core Java Developer Name Role Phone Momo Forbes MD [...] Coronavirus/COVID-19? No / Unsure 10/25/2022 12:16 PM CROP PULLER documented as of this encounter Plan of Treatment Not on file documented as of this encounter Visit Diagnoses Not on filedocumented in this encounter Care Teams Senior Core Java Developer Relationship Specialty Start Date End Date Momo Forbes MD PCP - General Family Practice 01/02/14 documented as of this encounter
--- OUTSIDE RECORDS SUMMARY | 2023-09-21 11:21 | XMS_ITS | Encounter Summary ---
Author Name Unknown Organization [place] Address [address] [place] [address]. [place] [address] Care Team Providers Care Cloth Finishing Range Back Tender Name Role Phone Momo Forbes MD Primary Care Provider [phone] Encounter Details Date Type Department Care Team (Late st Contact Info) Description 10/25/2022 12:30 PM CORPORATE HUMAN RESOURCES MANAGER [facility] Laboratory [address] [place] [address] Kidney transplanted Social History Tobacco [...] Coronavirus/COVID-19? No / Unsure 10/25/2022 12:16 PM CORPORATE HUMAN RESOURCES MANAGER documented as of this encounter Plan of Treatment Not on file documented as of this encounter Procedures Procedure Name Priority Date/Time Associated Diagnosis Comments CBC WITH PLATELETS Routine 10/25/2022 3: 18 PM CORPORATE HUMAN RESOURCES MANAGER Kidney transplanted TACROLIMUS BY TANDEM MASS SPECTROMETRY Routine 10/25/2022 2:46 PM CORPORATE HUMAN RESOURCES MANAGER Kidney transplanted BASIC METABOLIC PANEL Routine 10/25/2022 2:42 PM CORPORATE HUMAN RESOURCES MANAGER Kidney transplanted documented in this encounter Results * (ABNORMAL) CBC with platelets (10/25/2022 3:18 PM CORPORATE HUMAN RESOURCES MANAGER) WBC Count 6.7 4.0 - 11.0 10e3/uL 10/25/2022 3:20 PM CORPORATE HUMAN RESOURCES MANAGER [facility] RBC Count 5.16 4.40 - 5.90 10e6/uL 10/25/2022 3:20 PM CORPORATE HUMAN RESOURCES MANAGER [facility] Hemoglobin 13.9 13.3 - 17.7 g/dL 10/25/2022 3:20 PM CORPORATE HUMAN RESOURCES MANAGER [facility] Hematocrit 41.7 40.0 - 53.0 % 10/25/2022 3:20 PM CORPORATE HUMAN RESOURCES MANAGER [facility] MCV 81 78 - 100 fL 10/25/2022 3:20 PM CORPORATE HUMAN RESOURCES MANAGER [facility] MCH 26.9 26.5 - 33.0 pg 10/25/2022 3:20 PM CORPORATE HUMAN RESOURCES MANAGER [facility] MCHC 33.3 31.5 - 36.5 g/dL 10/25/2022 3:20 PM CORPORATE HUMAN RESOURCES MANAGER [facility] RDW 15.4(H) 10.0 - 15.0 % 10/25/2022 3:20 PM CORPORATE HUMAN RESOURCES MANAGER [facility] Platelet Count 115(L) 150 - 450 10e3/uL 10/25/2022 3:20 PM CORPORATE HUMAN RESOURCES MANAGER [facility] Blood BLOOD SPECIMEN / Unknown Venipuncture / Unknown 10/25/2022 3:18 PM CORPORATE HUMAN RESOURCES MANAGER 10/25/2022 3:18 PM CORPORATE HUMAN RESOURCES MANAGER Joseph Quintana MD LAB - BLOOD [facility] [address] [facility] Lab (no room number, 1st floor of clinic) [place] [address], [facility] [phone] * Tacrolimus by Tandem Mass Spectrometry (10/25/2022 2:46 PM CORPORATE HUMAN RESOURCES MANAGER) Pathologist [facility] Tacrolimus by Tandem Mass Spectrometry 8.7 5.0 - 15.0 ug/L 10/25/2022 10:35 PM CORPORATE HUMAN RESOURCES MANAGER [facility] Comment: Tacrolimus Reference Range [...] Last Dose Date 10/24/2022 10/25/2022 10:35 PM CORPORATE HUMAN RESOURCES MANAGER [facility] Tacrolimus Last Dose Time 9:00 PM 10/25/2022 10:35 PM CORPORATE HUMAN RESOURCES MANAGER [facility] Blood STRUCTURE OF RIGHT UPPER LIMB / Unknown Venipuncture / Unknown 10/25/2022 2:46 PM CORPORATE HUMAN RESOURCES MANAGER 10/25/2022 2:46 PM CORPORATE HUMAN RESOURCES MANAGER Narrative [facility] - 10/25/2022 10:35 PM CORPORATE HUMAN RESOURCES MANAGER This test was developed and its performance characteristics determined by the [facility], ??Special Chemistry Laboratory. It has not been cleared or approved by the FDA. The laboratory is regulated under CLIA as qualified to perform high-complexity testing. This test is used for clinical purposes. It should not be regarded as investigational or for research. Joseph Quintana MD LAB - BLOOD ORDBea HURST [facility] [address] [facility], Room [address] [place] [phone], [facility] [phone] * (ABNORMAL) Basic metabolic panel (10/25/2022 2:42 PM CORPORATE HUMAN RESOURCES MANAGER) Sodium 136 136 - 145 mmol/L 10/25/2022 6:50 PM CORPORATE HUMAN RESOURCES MANAGER [facility] Potassium 4.5 3.4 - 5.3 mmol/L 10/25/2022 6:50 PM CORPORATE HUMAN RESOURCES MANAGER [facility] Chloride 100 98 - 107 mmol/L 10/25/2022 6:50 PM CORPORATE HUMAN RESOURCES MANAGER [facility] Carbon Dioxide (CO2) 24 22 - 29 mmol/L 10/25/2022 6:50 PM CORPORATE HUMAN RESOURCES MANAGER [facility] Anion Gap 12 7 - 15 mmol/L 10/25/2022 6:50 PM CORPORATE HUMAN RESOURCES MANAGER [facility] Urea Nitrogen 45.2(H) 8.0 - 23.0 mg/dL 10/25/2022 6:50 PM CORPORATE HUMAN RESOURCES MANAGER [facility] Creatinine 2.53(H) 0.67 - 1.17 mg/dL 10/25/2022 6:50 PM CORPORATE HUMAN RESOURCES MANAGER [facility] Calcium 10.3(H) 8.8 - 10.2 mg/dL 10/25/2022 6:50 PM CORPORATE HUMAN RESOURCES MANAGER [facility] Glucose 342(H) 70 - 99 mg/dL 10/25/2022 6:50 PM CORPORATE HUMAN RESOURCES MANAGER [facility] GFR Estimate 26(L) >60 mL/min/1.7 3m2 10/25/2022 6:50 PM CORPORATE HUMAN RESOURCES MANAGER [facility] Comment:eGFR calculated us2020 CKD-EPI equation. 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
--- OUTSIDE RECORDS SUMMARY | 2023-09-21 11:21 | XMS_ITS | Encounter Summary ---
Author Name Unknown Organization [place] Address [address] [place] [address]. [place] [address] Care Team Providers Care Screen Cutter And Trimmer Name Role Phone Momo Forbes MD Primary Care Provider + [phone] Reason for Visit * Reason Onset Date Comments Call Back 10/21/2022 left 10/21/19 from Tete S/O., wanted to discuss care plan on Diego please call #[phone] Encounter Details Date Type Department Care Team (Late st Contact Info) Description 10/21/2022 Telephone [facility] [address] [place] [address] Gretta Peacock RN Call Back (VM left 10/20/2022 from Tete S/O., wanted to discuss care plan on Diego please call #[phone]) Social History Tobacco Use Types Packs/Day Years [...] and have them contact patient. Gretta Peacock rotary saw operatorWhip Sawyer [phone] ECTION SYSTEMS TECHNICIAN * Telephone Encounter - Mary Whitehead - 10/21/2022 9:07 AM CST VM left 10/20/2022 from Tete S/O., wanted to discuss care plan on Diego please call #[phone] ECTION SYSTEMS TECHNICIAN documented in this encounter Plan of Treatment Not on file documented as of this encounter Visit Diagnoses Not on filedocumented in this encounter Care Teams Screen Cutter And Trimmer Relationship Specialty Start Date End Date Momo Forbes MD PCP - General Family Practice 01/02/14 documented as of this encounter
--- OUTSIDE RECORDS SUMMARY | 2023-09-21 11:22 | XMS_ITS | Encounter Summary ---
Author Name Unknown Organization [place] Address [address] [place] [address] Care Team Providers Care Integration Software Engineer Name Role Phone Momo Forbes MD Primary Care Provider [phone] Encounter Details Date Type Department Care Team (Late st Contact Info) Description 09/14/2022 External Order Results [facility] [address] [place] [address] Outside, Provider Social History Tobacco Use Types [...] PLATELETS & DIFFERENTIAL Routine 09/14/2022 10:30 AM HAND TAPPER HEMOGLOBIN A1C Routine 09/14/2022 10:30 AM HAND TAPPER documented in this encounter Results * (ABNORMAL) Hemoglobin A1c (09/14/2022 10:30 AM HAND TAPPER) Hemoglobin A1C (External) 7.28(H) 0 - 5.6 % NON-INTERFACE D (ONBASE SCANS) Blood BLOOD SPECIMEN / Unknown 09/14/2022 10:30 AM HAND TAPPER Narrative JESSICA PFT - 09/15/2022 7:58 AM HAND TAPPER Verified by Ruperto Pepper on 09/15/2022. Momo Forbes MD LAB - BLOOD ORDERABL ES JESSICA THIBODEAUX NON-INTERFACED (ONBASE SCANS) * (ABNORMAL) CBC with Platelets & Differential (09/14/2022 10:30 AM HAND TAPPER) Pathologist [facility] WBC Count (External) 5.60 4.50 - 11.00 [...] BLOOD SPECIMEN / Unknown 09/14/2022 10:30 AM HAND TAPPER Narrative BREEZE PFT - 09/15/2022 7:58 AM HAND TAPPER Verified by Ruperto Pepper on 09/15/2022. Momo Forbes MD LAB - BLOOD ORDERABL ES JESSICA PFT NON-INTERFACED (ONBASE SCANS) documented in this encounter Visit Diagnoses Not on filedocumented in this encounter Care Teams Integration Software Engineer Relationship Specialty Start Date End Date Momo Forbes MD PCP - General Family Practice 01/02/14 documented as of this encounter
--- OUTSIDE RECORDS SUMMARY | 2023-09-21 11:22 | XMS_ITS | Encounter Summary ---
Author Name Unknown Organization [place] Address [address] [place] [address]. [place] [address] Care Team Providers Care Refrigeration Tech Name Role Phone Momo Forbes MD Primary Care Provider [phone] Reason for Referral * Therapeutic Imaging/IR (Emergency: 1-2 Days) - Pending Review Specialty Diagnoses / Procedures Referred By Contac t Referred To Contact Radiology. Diagnoses Elevated serum creatinine Hydronephrosis Procedures IR Referral outpatient referral IR Referral outpatient referral Joseph Quintana MD [address] [place] [address] 353 [facility] [address] [place] [address] Referral ID Status Reason Start Date Expiration Date V isits Requested Visits Authorized [id number] Pending Review 10/20/2022 10/20/2023 1 1 OR LINUX SYSTEMS ADMINISTRATOR Reason for Visit * Reason Onset Date Comments Transplant 10/19/2022 Encounter Details Date Type Department Care Team (Late st Contact Info) Description 10/19/2022 Telephone [facility] [address] [place] [address] Gretta Frias RN Transplant Social [...] Frias RN Sent: 10/19/2022 ?? 1:33 PM JUNIOR LINUX SYSTEMS ADMINISTRATOR To: Satish Gómez MD Subject: elevated creatinine, [...] CT scan obtained while in ED at [facility] July 2022. This [facility]- advised patient to obtain tx [...] through in PACS today. Gretta Frias RN Medical Insurance Claims Processor [phone] DISCUSSED AT CHRONIC REVIEW: Per Dr Arenas and Dr Quintana, Place order for emergent PNT via IR, if unable to do in IR in the next 1-2 days, patient will need to be admitted. Patient and aware of PNT orders. Will ensure he is scheduled in the next 1- [address] orders for admission Gretta Frias RN Medical Insurance Claims Processor [phone] OR LINUX SYSTEMS ADMINISTRATOR * Telephone Encounter - Tommie Alcazar - 10/19/2022 4:44 PM CST Patient Call: General Route to [facility] Reason for call: called in regards to touch base and return call. Call back needed? Yes Return Call Needed Same as documented in contacts section When to return call?: Same day: Route High Priority OR LINUX SYSTEMS ADMINISTRATOR * Addendum Note - Gretta Frias RN - 10/19/2022 4:44 PM CSTAddended by: GRETTA FRIAS on: 10/20/2022 03:57 PM Modules accepted: Orders OR LINUX SYSTEMS ADMINISTRATOR documented in this encounter Plan of Treatment Not on file documented as of this encounter Visit Diagnoses Diagnosis Elevated serum creatinine- Primary Other nonspecific findings on examination of blood Hydronephrosis documented in this encounter Care Teams Refrigeration Tech Relationship Specialty Start Date End Date Momo Forbes MD PCP - General Family Practice 01/02/14 documented as of this encounter
--- OUTSIDE RECORDS SUMMARY | 2023-09-21 11:22 | XMS_ITS | Encounter Summary ---
Author Name Unknown Organization [place] Address [address] [place] [address]. [place] [address] Care Team Providers Care Cutter Wet Machine Name Role Phone Momo Forbes MD Primary Care Provider Joseph Quintana MD Unavailable [phone] Reason for Visit * Reason Onset Date Comments Left Message To Call 05/06/2022 Left VM at 11:55PM., Wanted to discuss lab results Encounter Details Date Type Department Care Team (Late st Contact Info) Description 05/06/2022 Telephone [facility] Transplant Clinic [address] [place] [address] Gretat Peacock, BOGDAN Left Message To Call (Left [...] on filedocumented in this encounter Care Teams Cutter Wet Machine Relationship Specialty Start Date End Date Momo Forbes MD PCP - General Family Practice 01/02/14 Joseph Quintana MD [address] [place] [address] Assigned Nephrology Provider 03/29/21 09/10/22 documented as of this encounter
--- OUTSIDE RECORDS SUMMARY | 2023-09-21 11:22 | XMS_ITS | Encounter Summary ---
Author Name Unknown Organization [place] Address [address] [place] [address] Care Team Providers Care Director Behavioral Health Name Role Phone Momo Forbes MD Primary Care Provider Encounter Details Date Type Department Care Team (Late st Contact Info) Description 10/19/2022 External Order Results [facility] [address] [place] [address] Outside, Provider Social History Tobacco Use Types [...] Coronavirus/COVID-19? No / Unsure 10/22/2022 7:28 AM STAFF PHARMACIST HOSPITAL documented as of this encounter Plan of Treatment Not on file documented as of this encounter Visit Diagnoses Not on filedocumented in this encounter Care Teams Director Behavioral Health Relationship Specialty Start Date End Date Momo Forbes MD PCP - General Family Practice 01/02/14 documented as of this encounter
--- OUTSIDE RECORDS SUMMARY | 2023-09-21 11:22 | XMS_ITS | Encounter Summary ---
Author Name Unknown Organization [place] Address [address] [place] [address]. [place] [address] Care Team Providers Care Research Associate Policy Name Role Phone Momo Forbes MD Primary Care Provider + [phone] Reason for Visit * Reason Onset Date Comments Transplant Committee Review 10/20/2022 Encounter Details Date Type Department Care Team (Late st Contact Info) Description 10/20/2022 Team Conference [facility] [address] [place] [phone] Alana Calderon LPN Social History Tobacco [...] Coronavirus/COVID-19? No / Unsure 10/22/2022 7:28 AM TOOL ENGINEER documented as of this encounter Miscellaneous Notes * Telephone Encounter - Alana Calderon LPN - 10/20/2022 4:56 PM CST [facility] Team Conference Date: 10/20/2022 Cleaning Machine Operator: Gretta Peacock Attendees: [] Dr. Quintana [] Arline Leigh RN [] Cristy Chen LPN [] Dr. Richey [] Isa Ly RN [] Alana Calderon LPN [] Dr. Herrera [] Gladis Man RN [] Dr. Gómez [] Amanda Holland RN [] Destin Tom, PharmD [] Dr. Myles [] Gretta Peacock RN [] Dr. Rabago [] Cosmo Recinos RN [] Dr. Guerrero [] Barbie Ugalde, BOGDAN [] Nita Garcia RN [] Dr. Dangelo [] Nazia Jacobson RN [] Dr. Holland [] Yudi Porras RN [] Dr. Merchant [] Inez Chávez RN [] Radha Kaufman NP [] Catrina Dinh RN Verbal Plan Read Back: Urgent PNT with in 2 days Routed to RN Coordinator Alana Calderon LPN ENGINEER documented in this encounter Plan of Treatment Not on file documented as of this encounter Visit Diagnoses Not on filedocumented in this encounter Care Teams Research Associate Policy Relationship Specialty Start Date End Date Momo Forbes MD PCP - General Family Practice 01/02/14 documented as of this encounter
--- OUTSIDE RECORDS SUMMARY | 2023-09-21 11:22 | XMS_ITS | Encounter Summary ---
Author Name Unknown Organization [place] Address [address] [place] [address] Care Team Providers Care Construction Technician Name Role Phone Momo Forbes MD Primary Care Provider + [phone] Encounter Details Date Type Department Care Team (Late st Contact Info) Description 10/19/2022 External Order Results [facility] [address] [place] [address] Outside, Provider Social History Tobacco Use Types [...] Coronavirus/COVID-19? No / Unsure 10/22/2022 7:28 AM EXPLORATION GEOLOGIST documented as of this encounter Plan of Treatment Not on file documented as of this encounter Procedures Procedure Name Priority Date/Time Associated Diagnosis Comments CBC WITH PLATELETS & DIFFERENTIAL Routine 10/19/2022 11:00 AM EXPLORATION GEOLOGIST BASIC METABOLIC PANEL Routine 10/19/2022 11:00 AM EXPLORATION GEOLOGIST documented in this encounter Results * (ABNORMAL) CBC with Platelets & Differential (10/19/2022 11:00 AM EXPLORATION GEOLOGIST) WBC Count (External) 5.74 4.50 - 11.00 [...] BLOOD SPECIMEN / Unknown 10/19/2022 11:00 AM EXPLORATION GEOLOGIST Narrative BREEZE PFT - 10/21/2022 11:10 AM EXPLORATION GEOLOGIST Verified by Andrade Barajas on 10/21/2022. Provider Outside LAB - BLOOD ORDERABL ES BREEZE PFT NON-INTERFACED (ONBASE SCANS) * (ABNORMAL) Basic metabolic panel (10/19/2022 11:00 AM EXPLORATION GEOLOGIST) Sodium (External) 142 135 - 149 mmol/L [...] BLOOD SPECIMEN / Unknown 10/19/2022 11:00 AM EXPLORATION GEOLOGIST Narrative BREEZE PFT - 10/21/2022 11:10 AM EXPLORATION GEOLOGIST Verified by Andrade Barajas on 10/21/2022. Provider Outside LAB - BLOOD ORDERABL ES MARLENEE PFT NON-INTERFACED (ONBASE SCANS) documented in this encounter Visit Diagnoses Not on filedocumented in this encounter Care Teams Construction Technician Relationship Specialty Start Date End Date Momo Forbes MD PCP - General Family Practice 01/02/14 documented as of this encounter
--- OUTSIDE RECORDS SUMMARY | 2023-09-21 11:22 | XMS_ITS | Encounter Summary ---
Author Name Unknown Organization [place] Address [address] [place] [address]. [place] [address] Care Team Providers Care Hot Dip Tinning Supervisor Name Role Phone Momo Forbes MD Primary Care Provider Joseph Quintana MD Unavailable [phone] Encounter Details Date Type Department Care Team (Latest Contact Info) Description 08/13/2022 Medical Correspondence [facility] [address] [place] [address] Outside, Provider [facility] Social History Tobacco Use Types Packs/Day Years [...] Coronavirus/COVID-19? Unable to assess 10/28/2022 12:48 PM SUPERVISOR PUBLIC HEALTH NURSING documented as of this encounter Plan of Treatment Not on file documented as of this encounter Visit Diagnoses Not on filedocumented in this encounter Care Teams Hot Dip Tinning Supervisor Relationship Specialty Start Date End Date Momo Forbes MD PCP - General Family Practice 01/02/14 Joseph Quintana MD [address] [address] Assigned Nephrology Provider 03/29/21 09/10/22 documented as of this encounter
--- OUTSIDE RECORDS SUMMARY | 2023-09-21 11:22 | XMS_ITS | Encounter Summary ---
Author Name Unknown Organization [place] Address [address] [facility] [place] [address] Care Team Providers Care Attraction Worker Name Role Phone Momo Forbes MD Primary Care Provider + [phone] Encounter Details Date Type Department Care Team (Late st Contact Info) Description 09/29/2022 Telephone [facility] Transplant Clinic [address] [place] [address] Gretta Peacock RN Social History [...] - 09/29/2022 12:24 PM CST Order sent E COMMERCE SPECIALIST * Telephone Encounter - Tommie Alcazar - 09/29/2022 9:25 AM CST Patient Call: General Route to [facility] Reason for call: called in regards of need new lab orders faxed over for for patient. The provider name and signuture was not on the orders. Call back number is [phone] Fax number [phone] Call back needed? Yes Return Call Needed Same as documented in contacts section When to return call?: Same day: Route High Priority E COMMERCE SPECIALIST documented in this encounter Plan of Treatment Not on file documented as of this encounter Visit Diagnoses Not on filedocumented in this encounter Care Teams Attraction Worker Relationship Specialty Start Date End Date Momo Forbes MD PCP - General Family Practice 01/02/14 documented as of this encounter
--- OUTSIDE RECORDS SUMMARY | 2023-09-21 11:22 | XMS_ITS | Encounter Summary ---
Author Name Unknown Organization [place] Address [facility] [facility] [address] Care Team Providers Care Electric Motor Winder Name Role Phone Momo Forbes MD Primary Care Provider Encounter Details Date Type Department Care Team (Late st Contact Info) Description 10/19/[address] [facility] Transplant Clinic [address] [place] [phone] Gretta Peacock, BOGDAN Social History Tobacco [...] in this encounter Care Teams Electric Motor Winder Relationship Specialty Start Date End Date Momo Forbes MD PCP - General Family Practice 01/02/14 documented as of this encounter
--- OUTSIDE RECORDS SUMMARY | 2023-09-21 11:22 | XMS_ITS | Encounter Summary ---
Author Name Unknown Organization [place] Address [address] [place] [address]. [place] [address] Care Team Providers Care Section Crews Activities Clerk Name Role Phone Momo Forbes MD Primary Care Provider + [phone] Reason for Visit * Reason Onset Date Comments Transplant 10/19/2022 Encounter Details Date Type Department Care Team (Late st Contact Info) Description 10/19/2022 Telephone [facility] Transplant Clinic [address] [place] [address] Gretta Peacock RN Transplant Social History [...] Pt returning call. Pleas call pt back LITIES AND GROUNDS DIRECTOR documented in this encounter Plan of Treatment Not on file documented as of this encounter Visit Diagnoses Not on filedocumented in this encounter Care Teams Section Crews Activities Clerk Relationship Specialty Start Date End Date Momo Forbes MD PCP - General Family Practice 01/02/14 documented as of this encounter
--- OUTSIDE RECORDS SUMMARY | 2023-09-21 11:22 | XMS_ITS | Encounter Summary ---
Author Name Unknown Organization [place] Address [address] [place] [address]. [place] [address] Care Team Providers Care Tax Agent Name Role Phone Momo Forbes MD Primary Care Provider + [phone] Reason for Referral * Consultation (Routine) - Pending Review Specialty Diagnoses / Procedures Referred By Contac t Referred To Contact Transplant / Solid Organ Transplant Diagnoses Kidney transplanted Satish Gómez MD [address] [place] [address] [place] [id number] Referral ID Status Reason Start Date Expiration Date V isits Requested Visits Authorized [id number] Pending Review 10/15/2022 10/15/2023 1 1 Question Answer Order to be scheduled by Transplant Complex Dip Guider Stoves? Yes Scheduling Visit Type Return Patient to be seen by MD Gaytan RKT in person with first available provider MATIC DRILLING MACHINE OPERATOR Encounter Details Date Type Department Care Team ([facility] Contact Info) Description 10/15/2022 Telephone [facility] Transplant Clinic [address] [place] [address] Gretta Peacock RN Social History [...] - 10/20/2022 9:16 AM CST Nannette HIM [phone] Renal US images requested to be pushed through in PACS. Gretta Peacock theater teacherTie Puller [phone] MATIC DRILLING MACHINE OPERATOR * Telephone Encounter - Latricia Alejandro - 10/15/2022 10:37 AM CST Mariposa MCFADDEN at [facility] calling regarding how often labs should be drawn, and would like for someone to reach out to patient to schedule appointment with , spong she will be faxing over lab results for labs drawn on 10/05 MATIC DRILLING MACHINE OPERATOR documented in this encounter Plan of Treatment Scheduled Referrals Name Type Priority Associated Diagnoses Orde r Schedule SOT Follow up Referral Routine Kidney transplanted Expected: 04/14/2023 (Approximate), Expires: 10/15/2023 documented as of this encounter Visit Diagnoses Diagnosis Kidney transplanted- Primary Kidney replaced by transplant documented in this encounter Care Teams Tax Agent Relationship Specialty Start Date End Date Momo Forbes MD PCP - General Family Practice 01/02/14 documented as of this encounter
--- OUTSIDE RECORDS SUMMARY | 2023-09-21 11:22 | XMS_ITS | Encounter Summary ---
Author Name Unknown Organization [place] Address [address] [place] [address] Care Team Providers Care Lead C Developer Name Role Phone Momo Forbes MD Primary Care Provider + [phone] Encounter Details Date Type Department Care Team (Late st Contact Info) Description 10/05/2022 External Order Results [facility] [address] [place] [address] Outside, Provider Social History Tobacco Use Types [...] PLATELETS & DIFFERENTIAL Routine 10/05/2022 10:00 AM INDUSTRIAL MACHINE SYSTEM TECHNICIAN TACROLIMUS BY TANDEM MASS SPECTROMETRY Routine 10/05/2022 10:00 AM INDUSTRIAL MACHINE SYSTEM TECHNICIAN BASIC METABOLIC PANEL Routine 10/05/2022 10:00 AM INDUSTRIAL MACHINE SYSTEM TECHNICIAN documented in this encounter Results * Tacrolimus by Tandem Mass Spectrometry (10/05/2022 10:00 AM INDUSTRIAL MACHINE SYSTEM TECHNICIAN) Tacrolimus(FK-5 06) (External) 7.6 See scan ng/mL NON-INTERFACED (ONBASE SCANS) Blood 10/05/2022 10:0 0 AM INDUSTRIAL MACHINE SYSTEM TECHNICIAN Narrative JESSICA PFT - 10/18/2022 3:21 PM INDUSTRIAL MACHINE SYSTEM TECHNICIAN Verified by Cassie Florian on 10/18/2022. Provider Outside LAB - BLOOD ORDERABL ES JESSICA PFT NON-INTERFACED (ONBASE SCANS) * (ABNORMAL) CBC with Platelets & Differential (10/05/2022 10:00 AM INDUSTRIAL MACHINE SYSTEM TECHNICIAN) WBC Count (External) 5.68 4.50 - 11.00 [...] BLOOD SPECIMEN / Unknown 10/05/2022 10:00 AM INDUSTRIAL MACHINE SYSTEM TECHNICIAN Narrative MARLENEE PFT - 10/18/2022 3:21 PM INDUSTRIAL MACHINE SYSTEM TECHNICIAN Verified by Cassie Florian on 10/18/2022. Provider Outside LAB - BLOOD ORDERABL ES MARLENEBea PFT NON-INTERFACED (ONBASE SCANS) * (ABNORMAL) Basic metabolic panel (10/05/2022 10:00 AM INDUSTRIAL MACHINE SYSTEM TECHNICIAN) Sodium (External) 140 135 - 149 mmol/L [...] BLOOD SPECIMEN / Unknown 10/05/2022 10:00 AM INDUSTRIAL MACHINE SYSTEM TECHNICIAN Narrative JESSICA PFT - 10/18/2022 3:21 PM INDUSTRIAL MACHINE SYSTEM TECHNICIAN Verified by Cassie Florian on 10/18/2022. Provider Outside LAB - BLOOD ORDERABL ES JESSICA PFT NON-INTERFACED (ONBASE SCANS) documented in this encounter Visit Diagnoses Not on filedocumented in this encounter Care Teams Lead C Developer Relationship Specialty Start Date End Date Momo Forbes MD PCP - General Family Practice 01/02/14 documented as of this encounter
--- OUTSIDE RECORDS SUMMARY | 2023-09-21 11:22 | XMS_ITS | Encounter Summary ---
Author Name Unknown [facility] Address [address] [place] [address] Care Team Providers Care Seed Collector Name Role Phone Momo Forbes MD Primary Care Provider Joseph Quintana MD Unavailable [phone] Encounter Details Date Type Department Care Team (Late st Contact Info) Description 08/31/2022 External Order Results [facility] [address] [place] [address] Outside, Provider Social History Tobacco Use Types [...] BASIC METABOLIC PANEL Routine 09/07/2022 10:58 AM LAB MANAGER TACROLIMUS BY TANDEM MASS SPECTROMETRY Routine 08/31/2022 11:20 AM LAB MANAGER BASIC METABOLIC PANEL Routine 08/31/2022 11:20 AM LAB MANAGER documented in this encounter Results * (ABNORMAL) Basic metabolic panel (09/07/2022 10:58 AM LAB MANAGER) Potassium (External) 3.1(L) 3.6 - 5.2 mmol/L [...] BLOOD SPECIMEN / Unknown 09/07/2022 10:58 AM LAB MANAGER Narrative BREEZE PFT - 09/10/2022 1:01 PM LAB MANAGER Verified by Priscilla Mcdaniel on 09/10/2022. Provider Outside LAB - BLOOD ORDERABL ES Performing Organization Address [facility]/ZIP Co de Phone Number BREEZE PFT NON-INTERFACED (ONBASE SCANS) * Tacrolimus by Tandem Mass Spectrometry (08/31/2022 11:20 AM LAB MANAGER) Pathologist [facility] Tacrolimus(FK-5 06) (External) 6.7 5.0 - 15.0 ng/mL NON-INTERFACED (ONBASE SCANS) Blood 08/31/2022 11:2 0 AM LAB MANAGER Narrative BREEZE PFT - 09/02/2022 12:37 PM LAB MANAGER Verified by Yudi Ruano on 09/02/2022. Qasim Jade LAB - BLOOD ORDERABL ES BREEZE PFT NON-INTERFACED (ONBASE SCANS) * (ABNORMAL) Basic metabolic panel (08/31/2022 11:20 AM LAB MANAGER) Potassium (External) 3.4(L) 3.6 - 5.2 mmol/L [...] BLOOD SPECIMEN / Unknown 08/31/2022 11:20 AM LAB MANAGER Narrative JESSICA PFT - 09/02/2022 12:37 PM LAB MANAGER Verified by Yudi Ruano on 09/02/2022. Qaism Jade LAB - BLOOD ORDERABL ES JESSICA PFT NON-INTERFACED (ONBASE SCANS) documented in this encounter Visit Diagnoses Not on filedocumented in this encounter Care Teams Seed Collector Relationship Specialty Start Date End Date Momo Forbes MD PCP - General Family Practice 01/02/14 Joseph Quintana MD [address] [facility] [address] [facility] [address] [place] [address] Assigned Nephrology Provider 03/29/21 09/10/22 documented as of this encounter
--- OUTSIDE RECORDS SUMMARY | 2023-09-21 11:22 | XMS_ITS | Encounter Summary ---
Author Name Unknown Organization [place] Address [address] [place] [address]. [place] [address] Care Team Providers Care Supervisor Covering And Lining Name Role Phone Momo Forbes MD Primary Care Provider + [phone] Reason for Visit * Reason Onset Date Comments Refill Request 10/15/2022 Encounter Details Date Type Department Care Team (Late st Contact Info) Description 10/15/2022 Refill [facility] [place] [address] [place] [address] Joseph Quintana MD [address] [place] [address] 353 [facility] [address] [place], [place] [address] Refill Request Social History Tobacco Use Types [...] documented in this encounter Care Teams Supervisor Covering And Lining Relationship Specialty Start Date End Date Momo Forbes MD PCP - General Family Practice 01/02/14 documented as of this encounter
--- OUTSIDE RECORDS SUMMARY | 2023-09-21 11:22 | XMS_ITS | Encounter Summary ---
Author Name Unknown [facility] Address [address] [place] [address] Care Team Providers Care Meter Tester Polyphase Name Role Phone Momo Forbes MD Primary Care Provider [phone] Joseph Quintana MD Unavailable [phone] Encounter Details Date Type Department Care Team (Late st Contact Info) Description 09/07/2022 External Order Results [facility] [address] [place] [address] Outside, Provider Social History Tobacco Use Types [...] PLATELETS & DIFFERENTIAL Routine 09/07/2022 10:58 AM SPACE OFFICER TACROLIMUS BY TANDEM MASS SPECTROMETRY Routine 09/07/2022 10:58 AM SPACE OFFICER MAGNESIUM Routine 09/07/2022 10:58 AM SPACE OFFICER documented in this encounter Results * (ABNORMAL) CBC with Platelets & Differential (09/07/2022 10:58 AM SPACE OFFICER) [facility] Hemoglobin (External) 11.1(L) 13.2 - 16.6 g/dL [...] BLOOD SPECIMEN / Unknown 09/07/2022 10:58 AM SPACE OFFICER Narrative ZACHERYTYLER MORELIA - 09/10/2022 1:04 PM SPACE OFFICER Verified by Yudi Ruano on 09/10/2022. Provider Outside LAB - [facility]LOOD [facility]ABL ES [facility] [address] [place] [address] * Tacrolimus by Tandem Mass Spectrometry (09/07/2022 10:58 AM SPACE OFFICER) Pathologist [facility] Tacrolimus(FK-5 06) (External) 5.2 5.0 - 15.0 ng/ml NON-INTERFACED (ONBASE SCANS) Blood 09/07/2022 10:5 8 AM SPACE OFFICER Narrative BREEZE PFT - 09/10/2022 12:55 PM SPACE OFFICER Verified by Andrade Barajas on 09/10/2022. Provider Outside LAB - BLOOD ORDERABL ES BREEZE PFT NON-INTERFACED (ONBASE SCANS) * (ABNORMAL) Magnesium (09/07/2022 10:58 AM SPACE OFFICER) Magnesium (External) 1.5(L) 1.7 - 2.3 mg/dl NON-INTERFACED (ONBASE SCANS) Blood BLOOD SPECIMEN / Unknown 09/07/2022 10:58 AM SPACE OFFICER Narrative BREEZE PFT - 09/10/2022 12:55 PM SPACE OFFICER Verified by Andrade Barajas on 09/10/2022. Provider Outside LAB - BLOOD ORDERABL ES BREEZE PFT NON-INTERFACED (ONBASE SCANS) documented in this encounter Visit Diagnoses Not on filedocumented in this encounter Care Teams Meter Tester Polyphase Relationship Specialty Start Date End Date Momo Forbes MD PCP - General Family Practice 01/02/14 Joseph Quintana MD [address] [place] [address] Assigned Nephrology Provider 03/29/21 09/10/22 documented as of this encounter
--- OUTSIDE RECORDS SUMMARY | 2023-09-21 11:22 | XMS_ITS | Encounter Summary ---
Author Name Unknown Organization [place] Address [address] [place] [address] Care Team Providers Care Supervisor Rubber Covering Name Role Phone Momo Forbes MD Primary Care Provider + [phone] Encounter Details Date Type Department Care Team (Late st Contact Info) Description 09/27/2022 Telephone [facility] [address] [place] [address] Gretta Peacock, BOGDAN Social History [...] on abnormal abd CT scan obtained at [place] 07/2022. PLAN: call patient to ensure US has been scheduled as well as to discuss standing transplant lab orders OUTCOME: patient states he has renal US scheduled this month at [facility]. Had urology apt where cystoscopy was ordered. Lab orders updated at [facility]. Patient aware he is due for labs Gretta Peacock RN Shell Plater [phone] LER documented in this encounter Plan of Treatment Not on file documented as of this encounter Visit Diagnoses Not on filedocumented in this encounter Care Teams Supervisor Rubber Covering Relationship Specialty Start Date End Date Momo Forbes MD PCP - General Family Practice 01/02/14 documented as of this encounter
--- OUTSIDE RECORDS SUMMARY | 2023-09-21 11:22 | XMS_ITS | Encounter Summary ---
Author Name Unknown Organization [place] Address [address] [place] [address] Care Team Providers Care Receiving And Processing Supervisor Name Role Phone Momo Forbes MD Primary Care Provider + [phone] Encounter Details Date Type Department Care Team (Late st Contact Info) Description 10/19/2022 External Order Results [facility] [address] [place] [address] Outside, Provider Social History Tobacco Use Types [...] Coronavirus/COVID-19? No / Unsure 10/22/2022 7:28 AM CHINESE TEACHER documented as of this encounter Plan of Treatment Not on file documented as of this encounter Procedures Procedure Name Priority Date/Time Associated Diagnosis Comments TACROLIMUS BY TANDEM MASS SPECTROMETRY Routine 10/19/2022 11:00 AM CHINESE TEACHER documented in this encounter Results * Tacrolimus by Tandem Mass Spectrometry (10/19/2022 11:00 AM CHINESE TEACHER) Tacrolimus(FK-5 06) (External) 8.2 5.0 - 15.0 ng/ml NON-INTERFACED (ONBASE SCANS) Blood 10/19/2022 11:0 0 AM CHINESE TEACHER Narrative JESSICA PFT - 10/28/2022 9:41 AM CHINESE TEACHER Verified by Andrade Barajas on 10/28/2022. Joseph Quintana MD LAB - BLOOD SURYA HURST [facility] ([place], [place]) Organization Address City/State/ZIP Co de Phone Number JESSICA PFT NON-INTERFACED (ONBASE SCANS) documented in this encounter Visit Diagnoses Not on filedocumented in this encounter Care Teams Receiving And Processing Supervisor Relationship Specialty Start Date End Date Momo Forbes MD PCP - General Family Practice 01/02/14 documented as of this encounter
--- OUTSIDE RECORDS SUMMARY | 2023-09-21 11:22 | XMS_ITS | Encounter Summary ---
Author Name Unknown Organization [place] Address [address] [place] [address]. [place] [address] Care Team Providers Care Floral Designer Name Role Phone Momo Forbes MD Primary Care Provider + [phone] Reason for Visit * Reason Comments Medication Refill Encounter Details Date Type Department Care Team (Late st Contact Info) Description 10/14/2022 [facility] [place] [address] [place] [address] Joseph Quintana MD [address] [place] [address] [address] [facility] [address] [place], [place] [address] Medication Refill Social History Tobacco Use Types [...] transplant documented in this encounter Care Teams Floral Designer Relationship Specialty Start Date End Date Momo Forbes MD PCP - General Family Practice 01/02/14 documented as of this encounter
--- OUTSIDE RECORDS SUMMARY | 2023-09-21 11:22 | XMS_ITS | Encounter Summary ---
Author Name Unknown Organization [place] Address [address] [place] [address] Care Team Providers Care Managed Services Consultant Name Role Phone Momo Forbes MD Primary Care Provider + [phone] Encounter Details Date Type Department Care Team (Late st Contact Info) Description 10/07/[address] [facility] [address] [place] [address] Gretta Peacock, RN Social History [...] Will review results on received Gretta Peacock entry level programmerRight Of Way Manager [phone] RT WITNESS * Telephone Encounter - Latricia Alejandro - 10/07/2022 3:11 PM CST Diego is calling in regards to his upcoming Urology Procedure on 10/20/[address]. Patient wondering if he should have it done at the wanting to know RNCC thoughts RT WITNESS documented in this encounter Plan of Treatment Not on file documented as of this encounter Visit Diagnoses Not on filedocumented in this encounter Care Teams Managed Services Consultant Relationship Specialty Start Date End Date Momo Forbes MD PCP - General Family Practice 01/02/14 documented as of this encounter
--- OUTSIDE RECORDS SUMMARY | 2023-09-21 11:23 | XMS_ITS | Encounter Summary ---
Author Name Unknown [facility] Address [address] [place] [address] Care Team Providers Care Grinder Gear Name Role Phone Momo Forbes MD Primary Care Provider [phone] Joseph Quintana MD Unavailable [phone] Encounter Details Date Type Department Care Team (Late st Contact Info) Description 01/19/2022 External Order Results [facility] [address] [place] [address] Outside, Provider Social History Tobacco Use Types [...] Organization Address City/[facility]/ZIP Co de Phone Number ZACHERYEZE PFT NON-INTERFACED [...] - URINE ORDERABL ES Performing Organization Address [facility]/ZIP Co de Phone Number ZACHERYEZE PFT NON-INTERFACED [...] NEG NEGATIVE NON-INTERFAC ED (ONBASE SCANS) Specific [place] Urine (External) 1.010 1.005 - 1.030 NON-INTERFAC [...] filedocumented in this encounter Care Teams Grinder Gear Relationship Specialty Start Date End Date Momo Forbes MD PCP - General Family Practice 01/02/14 Joseph Quintana MD 7[address] [facility] 353 [facility] [address] [place] [address] Assigned Nephrology Provider 03/29/21 09/10/22 documented as of this encounter
--- OUTSIDE RECORDS SUMMARY | 2023-09-21 11:23 | XMS_ITS | Encounter Summary ---
Author Name Unknown Organization [place] Address [address] [facility] [place] [address] Care Team Providers Care Form Tamper Operator Name Role Phone Momo Forbes MD Primary Care Provider Joseph Quintana MD Unavailable [phone] Encounter Details Date Type Department Care Team (Late st Contact Info) Description 08/08/2020 External Order Results [facility] [address] [place] [address] Outside, Provider Social History Tobacco [...] Comments HEMOGLOBIN A1C Routine 08/08/2020 11:43 AM ASSISTANT PRODUCTION EDITOR TACROLIMUS BY TANDEM MASS SPECTROMETRY Routine 08/08/2020 11:34 AM ASSISTANT PRODUCTION EDITOR LIPID PROFILE Routine 08/08/2020 11:34 AM ASSISTANT PRODUCTION EDITOR ALT Routine 08/08/2020 11:34 AM ASSISTANT PRODUCTION EDITOR BASIC METABOLIC PANEL Routine 08/08/2020 11:34 AM ASSISTANT PRODUCTION EDITOR documented in this encounter Results * (ABNORMAL) Hemoglobin A1c (08/08/2020 11:43 AM ASSISTANT PRODUCTION EDITOR) Hemoglobin A1C (External) 10.2(H) <=6.9 % LABDE SCAN Blood specimen (specimen) 08/08/2020 11:43 AM ASSISTANT PRODUCTION EDITOR Narrative BREEZE PFT - 08/11/2020 1:28 PM ASSISTANT PRODUCTION EDITOR Verified by Praful Huff on 08/11/2020. Patient Reported LAB - BLOOD ORDERABL ES BREEZE PFT LABDE SCAN * Tacrolimus level (08/08/2020 11:34 AM ASSISTANT PRODUCTION EDITOR) Tacrolimus(FK-5 06) (External) 11.7 See scan ng/mL LABDE SCAN Blood specimen (specimen) 08/08/2020 11:34 AM ASSISTANT PRODUCTION EDITOR Narrative BREEZE PFT - 08/11/2020 1:28 PM ASSISTANT PRODUCTION EDITOR Verified by Praful Huff on 08/11/2020. Patient Reported LAB - BLOOD ORDERABL ES Performing Organization Address City/[facility]/ZIP Co de Phone Number BREEZE PFT LABDE SCAN * (ABNORMAL) Lipid Profile (08/08/2020 11:34 AM ASSISTANT PRODUCTION EDITOR) Cholesterol (External) 79(L) 90 - 200 MG/DL LABDE SCAN Triglycerides (External) 86 40 - 197 MG/DL LABDE SCAN LDL-Cholesterol (External) 29 <100 mg/dL LABDE SCAN HDL Cholesterol (External) 33(L) >=40 mg/dL LABDE SCAN Blood specimen (specimen) 08/08/2020 11:34 AM ASSISTANT PRODUCTION EDITOR Narrative BREEZE PFT - 08/11/2020 1:28 PM ASSISTANT PRODUCTION EDITOR Verified by Praful Huff on 08/11/2020. Patient Reported LAB - BLOOD ORDERABL ES BREEZE PFT LABDE SCAN * ALT (08/08/2020 11:34 AM ASSISTANT PRODUCTION EDITOR) ALT (External) 8 4 - 50 U/L LABDE SCAN Blood specimen (specimen) 08/08/2020 11:34 AM ASSISTANT PRODUCTION EDITOR Narrative BREEZE PFT - 08/11/2020 1:28 PM ASSISTANT PRODUCTION EDITOR Verified by Praful Huff on 08/11/2020. Patient Reported LAB - BLOOD ORDERABL ES Performing Organization Address City/[facility]/ZIP Co de Phone Number BREEZE PFT LABDE SCAN * (ABNORMAL) Basic metabolic panel (08/08/2020 11:34 AM ASSISTANT PRODUCTION EDITOR) Glucose (External) 119(H) 60 - 115 mg/dL [...] SCAN Blood specimen (specimen) 08/08/2020 11:34 AM ASSISTANT PRODUCTION EDITOR Narrative BREEZE PFT - 08/11/2020 1:28 PM ASSISTANT PRODUCTION EDITOR Verified by Praful Huff on 08/11/2020. Patient Reported LAB - BLOOD ORDERABL ES BREEZE PFT LABDE SCAN documented in this encounter Visit Diagnoses Not on filedocumented in this encounter Care Teams Form Tamper Operator Relationship Specialty Start Date End Date Momo Forbes MD PCP - General Family Practice 01/02/14 Joseph Quintana MD [address] [place] [address] [facility] [address] [place] [address] Assigned Nephrology Provider 03/29/21 09/10/22 documented as of this encounter
--- OUTSIDE RECORDS SUMMARY | 2023-09-21 11:23 | XMS_ITS | Encounter Summary ---
Author Name Unknown [facility] Address [address] [place] [address] Care Team Providers Care Pourer Off Name Role Phone Momo Forbes MD Primary Care Provider Joseph Quintana MD Unavailable [phone] Encounter Details Date Type Department Care Team (Late st Contact Info) Description 04/30/2021 External Order Results [facility] [address] [place] [address] Outside, Provider Social History Tobacco Use Types [...] on filedocumented in this encounter Care Teams Pourer Off Relationship Specialty Start Date End Date Momo Forbes MD PCP - General Family Practice 01/02/14 Joseph Quintana MD [address] [place] [address] Assigned Nephrology Provider 03/29/21 09/10/22 documented as of this encounter
--- OUTSIDE RECORDS SUMMARY | 2023-09-21 11:23 | XMS_ITS | Encounter Summary ---
Author Name Unknown [facility] Address [address] [place] [address] Care Team Providers Care Senior Engineering Manager Name Role Phone Momo Forbes MD Primary Care Provider Joseph Quintana MD Unavailable [phone] Encounter Details Date Type Department Care Team (Late st Contact Info) Description 11/16/2021 External Order Results [facility] [address] [place] [address] Outside, Provider Social History Tobacco Use Types [...] - BLOOD ORDE ARIS Performing Organization Address [facility]/ZIP Co de Phone Number BREEZE PFT NON-INTERFACED (ONBASE SCANS) * ALT (11/16/2021 7:12 PM CDT) ALT (External) 9 4 - 50 U/L NON- INTERFACED (ONBASE SCANS) Blood 11/16/2021 7:12 PM CDT Narrative BREEZE PFT - 12/02/2021 8:18 AM CDT Verified by Yudi Ruano on 12/02/2021. Felicia Tate MD LAB - BLOOD ORDE ARIS Performing Organization Address [facility] de Phone Number ZACHERYEZE PFT NON-INTERFACED (ONBASE [...] - BLOOD ORDE ARIS Performing Organization Address [facility] Co de Phone Number BREEZE PFT NON-INTERFACED [...] filedocumented in this encounter Care Teams Senior Engineering Manager Relationship Specialty Start Date End Date Momo Forbes MD PCP - General Family Practice 01/02/14 Joseph Quintana MD [address] [place] [address] [address] [place] [address] Assigned Nephrology Provider 03/29/21 09/10/22 documented as of this encounter
--- OUTSIDE RECORDS SUMMARY | 2023-09-21 11:23 | XMS_ITS | Encounter Summary ---
Author Name Unknown [facility] Address [address] [place] [address] Care Team Providers Care Graphic Editor Name Role Phone Momo Forbes MD Primary Care Provider Joseph Quintana MD Unavailable [phone] Encounter Details Date Type Department Care Team (Late st Contact Info) Description 12/09/2021 External Order Results [facility] [address] [place] [address] Outside, Provider Social History Tobacco Use Types [...] Richey MD LAB - URINE ORDERABL ES [facility] NON-[facility]FACED (ONBASE SCANS) * (ABNORMAL) Basic [...] on filedocumented in this encounter Care Teams Graphic Editor Relationship Specialty Start Date End Date Momo Forbes MD PCP - General Family Practice 01/02/14 Joseph Quintana MD [address] [place] [address] Assigned Nephrology Provider 03/29/21 09/10/22 documented as of this encounter
--- OUTSIDE RECORDS SUMMARY | 2023-09-21 11:23 | XMS_ITS | Encounter Summary ---
Author Name Unknown Organization [place] Address [address] [facility] [place] [address] Care Team Providers Care Termite Treater Helper Name Role Phone Momo Forbes MD Primary Care Provider Joseph Quintana MD Unavailable [phone] Encounter Details Date Type Department Care Team (Late st Contact Info) Description 01/27/2021 External Order Results [facility] [address] [place] [address] Outside, Provider Social History Tobacco [...] on filedocumented in this encounter Care Teams Termite Treater Helper Relationship Specialty Start Date End Date Momo Forbes MD PCP - General Family Practice 01/02/14 Joseph Quintana MD [address] [place] [address] Assigned Nephrology Provider 03/29/21 09/10/22 documented as of this encounter
--- OUTSIDE RECORDS SUMMARY | 2023-09-21 11:23 | XMS_ITS | Encounter Summary ---
Author Name Unknown Organization [place] Address [address] [place] [address] Care Team Providers Care Manager Lan Name Role Phone Momo Forbes MD Primary Care Provider Joseph Quintana MD Unavailable [phone] Encounter Details Date Type Department Care Team (Late st Contact Info) Description 02/02/2021 External Order Results [facility] [address] [place] [address] Outside, Provider Social History Tobacco Use [...] by Cassie Florian on 02/04/2021. Performed by: [address] ??[id number] Patient Reported LABORATORY ZACHERYTYLER PFT COVID-19 EXTERNAL RESULTS COVID-19 External Result Scanned into Patient Record by [facility] Refer to Result Comment/Narrative for exact performing laboratory [address] documented in this encounter Visit Diagnoses Not on filedocumented in this encounter Care Teams Manager Lan Relationship Specialty Start Date End Date Momo Forbes MD PCP - General Family Practice 01/02/14 Joseph Quintana MD 717 [facility] 353 [facility] [address] [place] [address] Assigned Nephrology Provider 03/29/21 09/10/22 documented as of this encounter
--- OUTSIDE RECORDS SUMMARY | 2023-09-21 11:23 | XMS_ITS | Encounter Summary ---
Author Name Unknown Organization [place] Address [address] [place] [address]. [place] [address] Care Team Providers Care Cobbler Mckay Name Role Phone Momo Forbes MD Primary Care Provider Joseph Quintana MD Unavailable [phone] Encounter Details Date Type Department Care Team (Late st Contact Info) Description 01/07/[address] [facility] [address] [place] [address] Outside, Provider Social History Tobacco Use [...] on filedocumented in this encounter Care Teams Cobbler Mckay Relationship Specialty Start Date End Date Momo Forbes MD PCP - General Family Practice 01/02/14 Joseph Quintana MD [address] [place] [address] Assigned Nephrology Provider 03/29/21 09/10/22 documented as of this encounter
--- OUTSIDE RECORDS SUMMARY | 2023-09-21 11:23 | XMS_ITS | Encounter Summary ---
Author Name Unknown Organization [place] Address [address] [facility] [place] [address] Care Team Providers Care Ortho/Prosthetic Aide Name Role Phone Momo Forbes MD Primary Care Provider Joseph Quintana MD Unavailable [phone] Encounter Details Date Type Department Care Team (Late st Contact Info) Description 07/08/[address] [facility] [address] [place] [address] Outside, Provider Social History Tobacco [...] PLATELETS & DIFFERENTIAL Routine 07/08/2020 9:23 AM COMPTOMETRIST TACROLIMUS BY TANDEM MASS SPECTROMETRY Routine 07/08/2020 9:23 AM COMPTOMETRIST PROTEIN RANDOM URINE Routine 07/08/2020 9:23 AM COMPTOMETRIST HEMOGLOBIN A1C Routine 07/08/2020 9:23 AM COMPTOMETRIST HEMOGLOBIN A1C Routine 07/08/2020 9:23 AM COMPTOMETRIST BASIC METABOLIC PANEL Routine 07/08/2020 9:23 AM COMPTOMETRIST documented in this encounter Results * (ABNORMAL) Protein random urine with Creat Ratio (07/08/2020 9:23 AM COMPTOMETRIST) Protein Random Urine (External) 73 mg/dL LABDE SCAN Creatinine Urine mg/dL (External) 65 mg/dL LABDE SCAN Protein Total Ur per Cr (External) 1.12(H) 0 - 0.19 LABDE SCAN Urine specimen (specimen) 07/08/2020 9:23 AM COMPTOMETRIST Narrative BREEZE PFT - 07/11/2020 11:13 AM COMPTOMETRIST Verified by Praful Huff on 07/11/2020. Patient Reported LAB - URINE ORDERABL ES BREEZE PFT LABDE SCAN * (ABNORMAL) Hemoglobin A1c (07/08/2020 9:23 AM COMPTOMETRIST) Hemoglobin A1C (External) 12.3(H) 0 - 5.6 % LABDE SCAN Blood specimen (specimen) 07/08/2020 9:23 AM COMPTOMETRIST Narrative BREEZE PFT - 07/11/2020 11:13 AM COMPTOMETRIST Verified by Praful Huff on 07/11/2020. Patient Reported LAB - BLOOD ORDERABL ES BREEZE PFT LABDE SCAN * Tacrolimus level (07/08/2020 9:23 AM COMPTOMETRIST) Tacrolimus(FK- 506) (External) 2.2 See scanned report ng/mL LABDE SCAN Blood specimen (specimen) 07/08/2020 9:23 AM COMPTOMETRIST Narrative BREEZE PFT - 07/11/2020 11:13 AM COMPTOMETRIST Verified by Praful Huff on 07/11/2020. Patient Reported LAB - BLOOD ORDERABL ES Performing Organization Address [facility]/ZIP Co de Phone Number BREEZE PFT LABDE SCAN * (ABNORMAL) Hemoglobin A1c (07/08/2020 9:23 AM COMPTOMETRIST) Hemoglobin A1C (External) 12.3(H) 0 - 5.6 % LABDE SCAN Blood specimen (specimen) 07/08/2020 9:23 AM COMPTOMETRIST Narrative BREEZE PFT - 07/09/2020 11:03 AM COMPTOMETRIST Verified by Andrade Barajas on 07/09/2020. Patient Reported LAB - BLOOD ORDERABL ES Performing Organization Address [facility] de Phone Number BREEZE PFT LABDE SCAN * (ABNORMAL) Basic metabolic panel (07/08/2020 9:23 AM COMPTOMETRIST) Calcium (External) 10.1 8.4 - 10.6 mg/dL [...] SCAN Blood specimen (specimen) 07/08/2020 9:23 AM COMPTOMETRIST Narrative BREEZE PFT - 07/09/2020 11:02 AM COMPTOMETRIST Verified by Andrade Barajas on 07/09/2020. Patient Reported LAB - BLOOD ORDERABL ES Performing Organization Address [facility] Co de Phone Number BREEZE PFT LABDE SCAN * (ABNORMAL) CBC with platelets differential (07/08/2020 9:23 AM COMPTOMETRIST) WBC Count (External) 4.32(L) 5.00 - 10.00 [...] SCAN Blood specimen (specimen) 07/08/2020 9:23 AM COMPTOMETRIST Narrative JESSICA PFT - 07/09/2020 10:52 AM COMPTOMETRIST Verified by Praful Huff on 07/09/2020. Patient Reported LAB - BLOOD ORDERABL ES BREEZE PFT LABDE SCAN documented in this encounter Visit Diagnoses Not on filedocumented in this encounter Care Teams Ortho/Prosthetic Aide Relationship Specialty Start Date End Date Momo Forbes MD PCP - General Family Practice 01/02/14 Joseph Quintana MD [address] [place] [address] [place] [address] Assigned Nephrology Provider 03/29/21 09/10/22 documented as of this encounter
--- OUTSIDE RECORDS SUMMARY | 2023-09-21 11:23 | XMS_ITS | Encounter Summary ---
Author Name Unknown [facility] Address [address] [place] [address] Care Team Providers Care Fashion Styling Intern Name Role Phone Momo Forbes MD Primary Care Provider [phone] Joseph Quintana MD Unavailable [phone] Encounter Details Date Type Department Care Team (Late st Contact Info) Description 04/29/2022 External Order Results [facility] [address] [place] [address] Outside, Provider Social History Tobacco Use Types [...] - BLOOD ORDERABL ES Performing Organization Address City/[facility]/ZIP Co de Phone Number MARLENEE PFT NON-INTERFACED [...] - BLOOD ORDERABL ES Performing Organization Address City/State/[facility] Co de Phone Number JESSICA PFT NON-INTERFACED [...] - BLOOD ORDERABL ES Performing Organization Address City/[facility] Co de Phone Number JESSICA PFT NON-INTERFACED (ONBASE SCANS) documented in this encounter Visit Diagnoses Not on filedocumented in this encounter Care Teams Fashion Styling Intern Relationship Specialty Start Date End Date Momo Forbes MD PCP - General Family Practice 01/02/14 Joseph Quintana MD 7[address] [facility] 353 [facility] [address] [place] [address] Assigned Nephrology Provider 03/29/21 09/10/22 documented as of this encounter
--- OUTSIDE RECORDS SUMMARY | 2023-09-21 11:23 | XMS_ITS | Encounter Summary ---
Author Name Unknown Organization [place] Address [facility] [facility] [place] [address] Care Team Providers Care Mosaic Floor Layer Name Role Phone Momo Forbes MD Primary Care Provider + [phone] Joseph Quintana MD Unavailable [phone] Encounter Details Date Type Department Care Team (Late st Contact Info) Description 05/26/2020 External Order Results [facility] [address] [place] [address] Outside, Provider Social History Tobacco [...] on filedocumented in this encounter Care Teams Mosaic Floor Layer Relationship Specialty Start Date End Date Momo Forbes MD PCP - General Family Practice 01/02/14 Joseph Quintana MD [address] [place] [address] Assigned Nephrology Provider 03/29/21 09/10/22 documented as of this encounter
--- OUTSIDE RECORDS SUMMARY | 2023-09-21 11:23 | XMS_ITS | Encounter Summary ---
Author Name Unknown Organization [place] Address [address] [facility] [place] [address] Care Team Providers Care Planting Machine Operator Name Role Phone Momo Forbes MD Primary Care Provider [phone] Joseph Quintana MD Unavailable [phone] Encounter Details Date Type Department Care Team (Late st Contact Info) Description 05/26/2020 External Order Results [facility] 9 [place] [address] Outside, Provider Social History Tobacco [...] on filedocumented in this encounter Care Teams Planting Machine Operator Relationship Specialty Start Date End Date Momo Forbes MD PCP - General Family Practice 01/02/14 Joseph Quintana MD 717 [facility] [address] [facility] [address] [place] [address] Assigned Nephrology Provider 03/29/21 09/10/22 documented as of this encounter
--- OUTSIDE RECORDS SUMMARY | 2023-09-21 11:23 | XMS_ITS | Encounter Summary ---
Author Name Unknown Organization [place] Address [address] [place] [address]. [place] [address] Care Team Providers Care Jewel Cupping Machine Operator Name Role Phone Momo Forbes MD Primary Care Provider [phone] Joseph Quintana MD Unavailable [phone] Encounter Details Date Type Department Care Team (Late st Contact Info) Description 07/08/[address] [facility] [address] [place] [address] Outside, Provider Social History Tobacco Use [...] EXTERNAL LAB RESULTS Routine 07/08/2020 9:23 AM DIRECTOR AMBULATORY documented in this encounter Results * External Lab Results (07/08/2020 9:23 AM DIRECTOR AMBULATORY) Scan Lab Results (External) View Image LABDE SCAN Comment:HLA Antibody Screen, Class I and Class II 07/08/2020 9:23 AM DIRECTOR AMBULATORY Narrative JESSICA PFT - 07/16/2020 2:42 PM DIRECTOR AMBULATORY Verified by Ruperto Pepper on 07/15/2020. Patient Reported LABORATORY JESSICA PFT LABDE SCAN documented in this encounter Visit Diagnoses Not on filedocumented in this encounter Care Teams Jewel Cupping Machine Operator Relationship Specialty Start Date End Date Momo Forbes MD PCP - General Family Practice 01/02/14 Joseph Quintana MD [address] [place] [address] Assigned Nephrology Provider 03/29/21 09/10/22 documented as of this encounter
--- OUTSIDE RECORDS SUMMARY | 2023-09-21 11:24 | XMS_ITS | Encounter Summary ---
Author Name Unknown Organization [place] Address [address] [facility] [place] [address] Care Team Providers Care Jammer Operator Name Role Phone Momo Forbes MD Primary Care Provider [phone] Joseph Quintana MD Unavailable [phone] Encounter Details Date Type Department Care Team (Late st Contact Info) Description 05/03/2016 External Order Results [facility] 9[address] [place] [address] Nurse, [facility] Social History Tobacco Use Types Packs/Day [...] on filedocumented in this encounter Care Teams Jammer Operator Relationship Specialty Start Date End Date Momo Forbes MD PCP - General Family Practice 01/02/14 Joseph Quintana MD [address] [place] [address] [address] [place] [address] Assigned Nephrology Provider 03/29/21 09/10/22 documented as of this encounter
--- OUTSIDE RECORDS SUMMARY | 2023-09-21 11:24 | XMS_ITS | Encounter Summary ---
Author Name Unknown Organization [facility] Address [address] [place] [address]. [place] [address] Care Team Providers Care Architectural Draftsperson Name Role Phone Ingrid Santana RN Unavailable Unavailable Momo Forbes MD Primary Care Provider Joseph Quintana MD Unavailable [phone] Encounter Details Date Type Department Care Team (Late st Contact Info) Description 08/14/2015 External Order Results [facility] [address] [place] [phone] Nurse, [facility] Social History Tobacco [...] EXTERNAL LAB RESULTS Routine 08/12/2015 4:41 PM GLOVE TAGGER documented in this encounter Results * (ABNORMAL) TXP External Lab Result (08/12/2015 4:41 PM GLOVE TAGGER) Sodium (External) 135 135 - 145 mmol/L [...] <=6.4 % LABDE SCAN 08/12/2015 4:41 PM GLOVE TAGGER Yohana THIBODEAUX - 08/14/2015 9:25 AM GLOVE TAGGER Verified by Freddy Mehta on 08/14/2015. Patient Reported LABORATORY BREEZE PFT LABDE SCAN documented in this encounter Visit Diagnoses Not on filedocumented in this encounter Care Teams Architectural Draftsperson Relationship Specialty Start Date End Date Momo Forbes MD PCP - General Family Practice 01/02/14 Ingrid Santana, RN Registered Nurse Transplant 02/10/12 10/01/15 Joseph Quintana MD 717 [facility] 353 [facility] 1932 [place] [address] Assigned Nephrology Provider 03/29/21 09/10/22 documented as of this encounter
--- OUTSIDE RECORDS SUMMARY | 2023-09-21 11:24 | XMS_ITS | Encounter Summary ---
Author Name Unknown Organization [place] Address [address] [place] [address]. [place] [address] Care Team Providers Care Electorate Officer Name Role Phone Ingrid Santana RN Unavailable Unavailable Momo Forbes MD Primary Care Provider Joseph Quintana MD Unavailable [phone] Encounter Details Date Type Department Care Team (Late st Contact Info) Description 02/03/2015 External Order Results [facility] [address] [place] [phone] Nurse, [facility] Social History Tobacco Use Types Packs/Day [...] on filedocumented in this encounter Care Teams Electorate Officer Relationship Specialty Start Date End Date Momo Forbes MD PCP - General Family Practice 01/02/14 Ingrid Santana, RN Registered Nurse Transplant 02/10/12 10/01/15 Joseph Quintana MD [address] [place] [address] [address] [place] [address] Assigned Nephrology Provider 03/29/21 09/10/22 documented as of this encounter
--- OUTSIDE RECORDS SUMMARY | 2023-09-21 11:24 | XMS_ITS | Encounter Summary ---
Author Name Unknown Organization [place] Address [address] [facility] [place] [address] Care Team Providers Care Gum Remover Name Role Phone Momo Forbes MD Primary Care Provider Joseph Quintana MD Unavailable [phone] Encounter Details Date Type Department Care Team (Late st Contact Info) Description 08/18/2016 External Order Results [facility] 909 [place] [address] Nurse, [facility] Social History Tobacco Use Types Packs/Day [...] EXTERNAL LAB RESULTS Routine 08/09/2016 12:21 PM MOBILE MARKETING SPECIALIST documented in this encounter Results * (ABNORMAL) TXP External Lab Result (08/09/2016 12:21 PM MOBILE MARKETING SPECIALIST) Sodium (External) 140 135 - 145 LABDE [...] <=6.4 LABDE SCAN 08/09/2016 12:2 1 PM MOBILE MARKETING SPECIALIST Narrative ZACHERYEZBea PFT - 08/18/2016 1:35 PM MOBILE MARKETING SPECIALIST Verified by Jessica Major on 08/18/2016. Patient Reported LABORATORY BREEZE PFT LABDE SCAN documented in this encounter Visit Diagnoses Not on filedocumented in this encounter Care Teams Gum Remover Relationship Specialty Start Date End Date Momo Forbes MD PCP - General Family Practice 01/02/14 Joseph Quintana MD [address] [place] [address] Assigned Nephrology Provider 03/29/21 09/10/22 documented as of this encounter
--- OUTSIDE RECORDS SUMMARY | 2023-09-21 11:24 | XMS_ITS | Encounter Summary ---
Author Name Unknown [facility] Address [address] [place] [address] Care Team Providers Care Intellectual Property Lawyer Name Role Phone Momo Forbes MD Primary Care Provider [phone] Joseph Quintana MD Unavailable [phone] Encounter Details Date Type Department Care Team (Late st Contact Info) Description 05/15/2018 External Order Results [facility] 9[address] [place] [address] Nurse, [facility] Social History Tobacco Use Types Packs/Day [...] on filedocumented in this encounter Care Teams Intellectual Property Lawyer Relationship Specialty Start Date End Date Momo Forbes MD PCP - General Family Practice 01/02/14 Joseph Quintana MD [address] [place] [address] [address] [place] [address] Assigned Nephrology Provider 03/29/21 09/10/22 documented as of this encounter
--- OUTSIDE RECORDS SUMMARY | 2023-09-21 11:24 | XMS_ITS | Encounter Summary ---
Author Name Unknown [facility] Address [address] [place] [address] Care Team Providers Care Tax Auditor Name Role Phone Momo Forbes MD Primary Care Provider Joseph Quintana MD Unavailable [phone] Encounter Details Date Type Department Care Team (Latest Contact Info) Description 09/09/2017 External Order Results [facility] [address] [place] [address] Nurse, [facility] Kidney replaced by transplant Social History [...] Comments HEMOGLOBIN A1C Routine 07/15/2017 10:48 AM SENIOR PAINTER BASIC METABOLIC PANEL Routine 07/15/2017 10:48 AM SENIOR PAINTER Kidney replaced by transplant HEMOGLOBIN A1C Routine [...] * (ABNORMAL) Hemoglobin A1c (07/15/2017 10:48 AM SENIOR PAINTER) Hemoglobin A1C (External) >14.0(H) <=6.4 % LABDE SCAN Blood specimen (specimen) 07/15/2017 10:48 AM SENIOR PAINTER Narrative JESSICA PFT - 09/09/2017 9:36 PM SENIOR PAINTER Verified by Sharon Martinez on 09/09/2017. Patient Reported LAB - BLOOD ORDERABL ES JESSICA PFT LABDE SCAN * (ABNORMAL) Basic metabolic panel (07/15/2017 10:48 AM SENIOR PAINTER) Sodium (External) 135 135 - 145 mmol/L [...] SCAN Blood specimen (specimen) 07/15/2017 10:48 AM SENIOR PAINTER Narrative ZACHERYEZE PFT - 09/09/2017 9:36 PM SENIOR PAINTER Verified by Sharon Martinez on 09/09/2017. Orlando Richey MD LAB - BLOOD ORDERABL ES BREEZE PFT LABDE SCAN * (ABNORMAL) Hemoglobin A1c (05/30/2017 9:32 AM CDT) Hemoglobin A1C (External) 14.0(H) <=6.4 % LABDE SCAN Blood specimen (specimen) 05/30/2017 9:32 AM CDT Narrative ZACHERYEZE PFT - 09/09/2017 9:39 PM SENIOR PAINTER Verified by Sharon Martinez on 09/09/2017. Patient [...] Narrative MARLENEE PFT - 09/09/2017 9:39 PM SENIOR PAINTER Verified by Sharon Martinez on 09/09/2017. Orlando Richey MD LAB - BLOOD ORDERABL ES Performing Organization Address [facility]/ZIP Co de Phone Number [facility] [place] [facility] [place] * (ABNORMAL) Basic metabolic [...] Narrative JESSICA PFT - 09/09/2017 9:39 PM SENIOR PAINTER Verified by Sharon Martinez on 09/09/2017. Orlando Richey MD LAB - BLOOD ORDERABL ES Performing Organization Address [facility]/ZIP Co de Phone Number JESSICA PFT LABDE SCAN * ALT (01/19/2017 9:30 AM CDT) ALT (External) 11 8 - 45 IU/L LABDE SCAN Blood specimen (specimen) 01/19/2017 9:30 AM CDT Yohana BINGHAMEZE PFT - 09/09/2017 9:44 PM SENIOR PAINTER Verified by Sharon Martinez on 09/09/2017. Patient Reported LAB - BLOOD ORDERABL ES Performing Organization Address [facility]/ZIP Co de Phone Number BREEZE PFT LABDE SCAN * (ABNORMAL) Lipid Profile (01/19/2017 9:30 AM CDT) Cholesterol (External) 102 100 - 199 mg/dL LABDE SCAN Triglycerides (External) 110 <150 mg/dL LABDE SCAN HDL Cholesterol (External) 35(L) >40 mg/dL LABDE SCAN LDL Cholesterol Calculated (External) 45 <=130 mg/dL LABDE SCAN Blood specimen (specimen) 01/19/2017 9:30 AM CDT [facility] MARLENEE PFT - 09/09/2017 9:44 PM SENIOR PAINTER Verified by Sharon Martinez on 09/09/2017. Patient Reported LAB - BLOOD ORDERABL ES Performing Organization Address [facility] Co de Phone Number BREEZE PFT LABDE SCAN * (ABNORMAL) Hemoglobin A1c (01/19/2017 9:30 AM CDT) Hemoglobin A1C (External) 12.4(H) <=6.4 % LABDE SCAN Blood specimen (specimen) 01/19/2017 9:30 AM CDT [facility] JESSICA PFT - 09/09/2017 9:44 PM SENIOR PAINTER Verified by Sharon Martinez on 09/09/2017. Patient Reported LAB - BLOOD ORDERABL ES Performing Organization Address [facility]/ZIP Co de Phone Number BREEZE PFT [...] Narrative JESSICA PFT - 09/09/2017 9:44 PM SENIOR PAINTER Verified by Sharon Martinez on 09/09/2017. Patient Reported LAB - BLOOD ORDERABL ES JESSICA PFT LABDE SCAN documented in this encounter Visit Diagnoses Diagnosis Kidney replaced by transplant documented in this encounter Care Teams Tax Auditor Relationship Specialty Start Date End Date Momo Forbes MD PCP - General Family Practice 01/02/14 Joseph Quintana MD [address] [place] [address] [address] [place] [address] Assigned Nephrology Provider 03/29/21 09/10/22 documented as of this encounter
--- OUTSIDE RECORDS SUMMARY | 2023-09-21 11:24 | XMS_ITS | Encounter Summary ---
Author Name Unknown Organization [facility] Address [address] [place] [address]. [place] [address] Care Team Providers Care Family Medicine Physician Assistant Name Role Phone Ingrid Santana RN Unavailable Unavailable Momo Forbes MD Primary Care Provider Joseph Quintana MD Unavailable [phone] Encounter Details Date Type Department Care Team (Late st Contact Info) Description 11/07/2014 External Order Results [facility] [address] [place] [phone] Nurse, [facility] Social History Tobacco Use Types [...] filedocumented in this encounter Care Teams Family Medicine Physician Assistant Relationship Specialty Start Date End Date Momo Forbes MD PCP - General Family Practice 01/02/14 Ingrid Santana, RN Registered Nurse Transplant 02/10/12 10/01/15 Joseph Quintana MD [address] [place] [address] Assigned Nephrology Provider 03/29/21 09/10/22 documented as of this encounter
--- OUTSIDE RECORDS SUMMARY | 2023-09-21 11:24 | XMS_ITS | Encounter Summary ---
Author Name Unknown Organization [place] Address [address] [place] [address]. [place] [address] Care Team Providers Care Business Development Analyst Name Role Phone Ingrid Santana RN Unavailable Unavailable Momo Forbes MD Primary Care Provider Joseph Quintana MD Unavailable [phone] Encounter Details Date Type Department Care Team (Late st Contact Info) Description 07/31/2014 External Order Results [facility] [address] [place] [phone] Nurse, [facility] Social History Tobacco Use Types Packs/Day [...] EXTERNAL LAB RESULTS Routine 07/29/2014 8:25 AM ULTRASOUND MANAGER documented in this encounter Results * (ABNORMAL) TXP External Lab Result (07/29/2014 8:25 AM ULTRASOUND MANAGER) Sodium (External) 138 135 - 145 mmol/L [...] >40 mg/dL LABDE SCAN 07/29/2014 8:25 AM ULTRASOUND MANAGER Narrative JESSICA PFT - 07/31/2014 2:47 PM ULTRASOUND MANAGER Verified by Nazia Duncan on 07/31/2014. Verified by Freddy Mehta on 07/31/2014. Patient Reported LABORATORY BRETYLER PFT LABDE SCAN documented in this encounter Visit Diagnoses Not on filedocumented in this encounter Care Teams Business Development Analyst Relationship Specialty Start Date End Date Momo Forbes MD PCP - General Family Practice 01/02/14 Ingrid Santana, RN Registered Nurse Transplant 02/10/12 10/01/15 Joseph Quintana MD 717 [facility] [address] [facility] [address] [place] [address] Assigned Nephrology Provider 03/29/21 09/10/22 documented as of this encounter
--- OUTSIDE RECORDS SUMMARY | 2023-09-21 11:24 | XMS_ITS | Encounter Summary ---
Author Name Unknown Organization [facility] Address [address] [place] [address]. [place] [address] Care Team Providers Care Accounts Payable Accountant Name Role Phone Ingrid Santana RN Unavailable Unavailable Momo Forbes MD Primary Care Provider Joseph Quintana MD Unavailable [phone] Encounter Details Date Type Department Care Team (Late st Contact Info) Description 07/25/2014 External Order Results [facility] [address] [place] [phone] Nurse, [facility] Social History Tobacco Use Types Packs/Day [...] EXTERNAL LAB RESULTS Routine 07/22/2014 8:22 AM AUDIO PRODUCTION MANAGER documented in this encounter Results * (ABNORMAL) TXP External Lab Result (07/22/2014 8:22 AM AUDIO PRODUCTION MANAGER) Sodium (External) 140 135 - 145 mmol/L [...] 11.0 fL LABDE SCAN 07/22/2014 8:22 AM AUDIO PRODUCTION MANAGER Narrative JESSICA PFT - 07/25/2014 6:19 AM AUDIO PRODUCTION MANAGER Verified by Janee Alxeis on 07/25/2014. Patient Reported LABORATORY JESSICA PFT LABDE SCAN documented in this encounter Visit Diagnoses Not on filedocumented in this encounter Care Teams Accounts Payable Accountant Relationship Specialty Start Date End Date Momo Forbes MD PCP - General Family Practice 01/02/14 Ingrid Santana, RN Registered Nurse Transplant 02/10/12 10/01/15 Joseph Quintana MD [address] [place] [address] Assigned Nephrology Provider 03/29/21 09/10/22 documented as of this encounter
--- OUTSIDE RECORDS SUMMARY | 2023-09-21 11:24 | XMS_ITS | Encounter Summary ---
Author Name Unknown [facility] Address [address] [facility] [place] [address] Care Team Providers Care System Integration Engineer Name Role Phone Momo Forbes MD Primary Care Provider [phone] Joseph Quintana MD Unavailable [phone] Encounter Details Date Type Department Care Team (Late st Contact Info) Description 09/04/2018 External Order Results [facility] 9[address] [place] [address] Nurse, [facility] Social History Tobacco Use Types [...] PLATELETS & DIFFERENTIAL Routine 09/04/2018 2:50 PM TURRET LATHE TENDER BASIC METABOLIC PANEL Routine 09/04/2018 2:50 PM TURRET LATHE TENDER PROTEIN RANDOM URINE Routine 09/04/2018 2:49 PM TURRET LATHE TENDER documented in this encounter Results * (ABNORMAL) CBC with platelets differential (09/04/2018 2:50 PM TURRET LATHE TENDER) WBC Count (External) 3.8(L) 4.5 - 11.0 [...] SCAN Blood specimen (specimen) 09/04/2018 2:50 PM TURRET LATHE TENDER Narrative JESSICA THIBODEAUX - 09/06/2018 9:13 AM TURRET LATHE TENDER Verified by Cassie Florian on 09/06/2018. Patient Reported LAB - BLOOD ORDERABL ES JESSICA PFT LABDE SCAN * (ABNORMAL) Basic metabolic panel (09/04/2018 2:50 PM TURRET LATHE TENDER) Sodium (External) 136 135 - 145 mmol/L [...] SCAN Blood specimen (specimen) 09/04/2018 2:50 PM TURRET LATHE TENDER Narrative JESSICA PFT - 09/06/2018 9:13 AM TURRET LATHE TENDER Verified by Cassie Florian on 09/06/2018. Patient Reported LAB - BLOOD ORDERABL ES [facility] LABDE SCAN * (ABNORMAL) Protein random urine with Creat Ratio (09/04/2018 2:49 PM TURRET LATHE TENDER) Protein Random Urine (External) 72(H) 1 - 14 mg/dL LABDE SCAN Creatinine Urine mg/dL (External) 104.0 63.0 - 166.0 mg/dL LABDE SCAN Protein Total Ur per Cr (External) 0.7(H) <0.2 LABDE SCAN Urine specimen (specimen) 09/04/2018 2:49 PM TURRET LATHE TENDER Narrative JESSICA PFT - 09/06/2018 9:13 AM TURRET LATHE TENDER Verified by Cassie Florian on 09/06/2018. Patient Reported LAB - URINE ORDERABL ES BREEZE PFT LABDE SCAN documented in this encounter Visit Diagnoses Not on filedocumented in this encounter Care Teams System Integration Engineer Relationship Specialty Start Date End Date Momo Forbes MD PCP - General Family Practice 01/02/14 Joseph Quintana MD [address] [place] [address] Assigned Nephrology Provider 03/29/21 09/10/22 documented as of this encounter
--- OUTSIDE RECORDS SUMMARY | 2023-09-21 11:24 | XMS_ITS | Encounter Summary ---
Author Name Unknown Organization [place] Address [address] [place] [address]. [place] [address] Care Team Providers Care Outside Food Server Name Role Phone Ingrid Santana RN Unavailable Unavailable Momo Forbes MD Primary Care Provider [phone] Joseph Quintana MD Unavailable [phone] Encounter Details Date Type Department Care Team (Late st Contact Info) Description 08/28/2014 External Order Results [facility] Clinic [address] [place] [phone] Nurse, [facility] Social History Tobacco Use Types [...] EXTERNAL LAB RESULTS Routine 08/26/2014 10:25 AM ASSISTANT CLINICAL NURSE MANAGER documented in this encounter Results * (ABNORMAL) TXP External Lab Result (08/26/2014 10:25 AM ASSISTANT CLINICAL NURSE MANAGER) Sodium (External) 139 135 - 145 mmol/L [...] mm LABDE SCAN 08/26/2014 10:2 5 AM ASSISTANT CLINICAL NURSE MANAGER Narrative JESSICA PFT - 08/28/2014 4:34 PM ASSISTANT CLINICAL NURSE MANAGER Verified by Freddy Mehta on 08/28/2014. Patient Reported LABORATORY BRETYLER PFT LABDE SCAN documented in this encounter Visit Diagnoses Not on filedocumented in this encounter Care Teams Outside Food Server Relationship Specialty Start Date End Date Momo Forbes MD PCP - General Family Practice 01/02/14 Ingrid Santana, RN Registered Nurse Transplant 02/10/12 10/01/15 Joseph Quintana MD [address] [place] [address] Assigned Nephrology Provider 03/29/21 09/10/22 documented as of this encounter
--- OUTSIDE RECORDS SUMMARY | 2023-09-21 11:24 | XMS_ITS | Encounter Summary ---
Author Name Unknown [facility] Address [address] [place] [address]. [place] [address] Care Team Providers Care Criminal Justice Lawyer Name Role Phone Momo Forbes MD Primary Care Provider Joseph Quintana MD Unavailable [phone] Encounter Details Date Type Department Care Team (Latest Contact Info) Description 05/16/2019 External Order Results [facility] 9 [place] [address] Nurse, [facility] Aftercare following organ transplant; Kidney replaced [...] - 05/17/2019 1:22 PM CDT Verified by Praflu Huff on 05/17/2019. Joseph Quintana MD LAB [...] medication documented in this encounter Care Teams Criminal Justice Lawyer Relationship Specialty Start Date End Date Momo Forbes MD PCP - General Family Practice 01/02/14 Joseph Quintana MD [address] [place] [address] Assigned Nephrology Provider 03/29/21 09/10/22 documented as of this encounter
--- OUTSIDE RECORDS SUMMARY | 2023-09-21 11:24 | XMS_ITS | Encounter Summary ---
Author Name Unknown Organization [place] Address [address] [facility] [place] [address] Care Team Providers Care Machine Repair Person Name Role Phone Momo Forbes MD Primary Care Provider [phone] Joseph Quintana MD Unavailable [phone] Encounter Details Date Type Department Care Team (Late st Contact Info) Description 03/18/2016 External Order Results [facility] [address] [place] [address] Nurse, [facility] Social History Tobacco Use Types Packs/Day [...] filedocumented in this encounter Care Teams Machine Repair Person Relationship Specialty Start Date End Date Momo Forbes MD PCP - General Family Practice 01/02/14 Joseph Quintana MD [address] [place] [address] Assigned Nephrology Provider 03/29/21 09/10/22 documented as of this encounter
--- OUTSIDE RECORDS SUMMARY | 2023-09-21 11:24 | XMS_ITS | Encounter Summary ---
Author Name Unknown Organization [facility] Address [address] [place] [address]. [place] [address] Care Team Providers Care Physical Therapy Aid Name Role Phone Ingrid Santana RN Unavailable Unavailable Momo Forbes MD Primary Care Provider Joseph Quintana MD Unavailable [phone] Encounter Details Date Type Department Care Team (Late st Contact Info) Description 08/06/2014 External Order Results [facility] [address] [place] [phone] Nurse, [facility] Social History Tobacco Use Types Packs/Day [...] EXTERNAL LAB RESULTS Routine 08/05/2014 8:39 AM WINDOW/DISTRIBUTION CLERK documented in this encounter Results * (ABNORMAL) TXP External Lab Result (08/05/2014 8:39 AM WINDOW/DISTRIBUTION CLERK) Sodium (External) 137 135 - 145 mmol/L [...] 11.0 fL LABDE SCAN 08/05/2014 8:39 AM WINDOW/DISTRIBUTION CLERK Narrative JESSICA PFT - 08/06/2014 7:40 AM WINDOW/DISTRIBUTION CLERK Verified by Mary Whitehead on 08/06/2014. Patient Reported LABORATORY BREEZE PFT LABDE SCAN documented in this encounter Visit Diagnoses Not on filedocumented in this encounter Care Teams Physical Therapy Aid Relationship Specialty Start Date End Date Momo Forbes MD PCP - General Family Practice 01/02/14 Ingrid Santana, RN Registered Nurse Transplant 02/10/12 10/01/15 Joseph Quintana MD [address] [place] [address] Assigned Nephrology Provider 03/29/21 09/10/22 documented as of this encounter
--- OUTSIDE RECORDS SUMMARY | 2023-09-21 11:25 | XMS_ITS ---
Author Name Unknown Organization [facility] Address [address] 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 Follow-up on 02/02/2014 Kidney CoordinatorGretta Peacock RN Phone: N/A Fax: N/A Email: N/A [place] Organ Diagnosis Organ Primary Contributory Kidney Diabetes [...] N/A G German Jones MD Referring Physician [phone] [email or web address] [employer] Events Post-Transplant Pre-Transplant Admitted: 02/02/2014 Referred: 12/07/2011 Transplanted: 02/02/2014 Evaluation began: 2 Discharged: 02/08/2014 Committee: 02/16/2012 Center waitlisted: 2 Appointments (08/21/2023 - 10/20/2023) When With Description 08/26/2023 SOT - Malepati, D No Show Dialysis History Dialysis History Start End Type Comments Center 09/06/2011 02/02/2014 Hemo Dialysis Days p er week -- M,W,F [facility] D[facility] Information Center Phone Fax Address [facility] ([facility]) [phone] [address] [place] [address]
--- OUTSIDE RECORDS SUMMARY | 2023-09-21 11:25 | XMS_ITS | Encounter Summary ---
Author Name Unknown Organization [facility] Address [address] [place] [address]. [place] [address] Care Team Providers Care Graining Machine Operator Name Role Phone Ingrid Santana RN Unavailable Unavailable Momo Forbes MD Primary Care Provider Joseph Quintana MD Unavailable [phone] Encounter Details Date Type Department Care Team (Late st Contact Info) Description 05/16/2014 External Order Results [facility] [address] [address] [place] [phone] Nurse, [facility] Social History Tobacco Use Types Packs/Day Years [...] 05/16/2014 10:38 AM CDT Verified by Mary [place] on 05/16/2014. Patient Reported LABORATORY BREEZE PFT LABDE SCAN documented in this encounter Visit Diagnoses Not on filedocumented in this encounter Care Teams Graining Machine Operator Relationship Specialty Start Date End Date Momo Forbes MD PCP - General Family Practice 01/02/14 Ingrid Santana, RN Registered Nurse Transplant 02/10/12 10/01/15 Joseph Quintana MD [address] [place] [id number] Assigned Nephrology Provider 03/29/21 09/10/22 documented as of this encounter
--- OUTSIDE RECORDS SUMMARY | 2023-09-21 11:25 | XMS_ITS | Encounter Summary ---
Author Name Unknown Organization [facility] Address [address] [place] [address]. [place] [address] Care Team Providers Care Roundhouse Supervisor Name Role Phone Ingrid Santana RN Unavailable Unavailable Momo Forbes MD Primary Care Provider Joseph Quintana MD Unavailable [phone] Encounter Details Date Type Department Care Team (Late st Contact Info) Description 07/03/2014 External Order Results [facility] [address] [address] [place] [phone] Nurse, [facility] Social History Tobacco Use Types [...] EXTERNAL LAB RESULTS Routine 07/01/2014 8:27 AM PETROLEUM REFINING EQUIPMENT OPERATOR documented in this encounter Results * (ABNORMAL) TXP External Lab Result (07/01/2014 8:27 AM PETROLEUM REFINING EQUIPMENT OPERATOR) Sodium (External) 140 135 - 145 mmol/L [...] 11.0 fL LABDE SCAN 07/01/2014 8:27 AM PETROLEUM REFINING EQUIPMENT OPERATOR Narrative JESSICA PFT - 07/03/2014 2:18 PM PETROLEUM REFINING EQUIPMENT OPERATOR Verified by Xiomara Bello on 07/03/2014. Patient Reported LABORATORY BREEZE PFT LABDE SCAN documented in this encounter Visit Diagnoses Not on filedocumented in this encounter Care Teams Roundhouse Supervisor Relationship Specialty Start Date End Date Momo Forbes MD PCP - General Family Practice 01/02/14 Ingrid Santana, RN Registered Nurse Transplant 02/10/12 10/01/15 Joseph Quintana MD [address] [place] [id number] Assigned Nephrology Provider 03/29/21 09/10/22 documented as of this encounter
--- OUTSIDE RECORDS SUMMARY | 2023-09-21 11:25 | XMS_ITS | Encounter Summary ---
Author Name Unknown Organization [facility] Address [address] [place] [address]. [place] [address] Care Team Providers Care Gas Main Fitter Helper Name Role Phone Ingrid Santana RN Unavailable Unavailable Momo Forbes MD Primary Care Provider Joseph Quintana MD Unavailable [phone] Encounter Details Date Type Department Care Team (Late st Contact Info) Description 06/08/2014 External Order Results [facility] [address] [place] [phone] Nurse, [facility] Social History Tobacco Use [...] filedocumented in this encounter Care Teams Gas Main Fitter Helper Relationship Specialty Start Date End Date Momo Forbes MD PCP - General Family Practice 01/02/14 Ingrid Santana, RN Registered Nurse Transplant 02/10/12 10/01/15 Joseph Quintana MD 7[address] [facility] [address] [facility] [address] [place] [address] Assigned Nephrology Provider 03/29/21 09/10/22 documented as of this encounter
--- OUTSIDE RECORDS SUMMARY | 2023-09-21 11:25 | XMS_ITS | Encounter Summary ---
Author Name Unknown Organization [facility] Address [address] [place] [address]. [place] [address] Care Team Providers Care Cut Press Operator Name Role Phone Ingrid Santana RN Unavailable Unavailable Momo Forbes MD Primary Care Provider Joseph Quintana MD Unavailable [phone] Encounter Details Date Type Department Care Team (Late st Contact Info) Description 05/27/2014 External Order Results [facility] [address] [place] [phone] Nurse, [facility] Social History Tobacco Use Types [...] filedocumented in this encounter Care Teams Cut Press Operator Relationship Specialty Start Date End Date Momo Forbes MD PCP - General Family Practice 01/02/14 Ingrid Santana, RN Registered Nurse Transplant 02/10/12 10/01/15 Joseph Quintana MD [address] [address] Assigned Nephrology Provider 03/29/21 09/10/22 documented as of this encounter
--- OUTSIDE RECORDS SUMMARY | 2023-09-21 11:25 | XMS_ITS | Encounter Summary ---
Author Name Unknown Organization [facility] Address [address] [place] [address]. [place] [address] Care Team Providers Care It Sales Representative Name Role Phone Ingrid Santana RN Unavailable Unavailable Momo Forbes MD Primary Care Provider Joseph Quintana MD Unavailable [phone] Encounter Details Date Type Department Care Team (Late st Contact Info) Description 06/24/2014 External Order Results [facility] [address] [place] [phone] Nurse, [facility] Social History Tobacco Use Types Packs/Day [...] EXTERNAL LAB RESULTS Routine 06/24/2014 8:37 AM MUD JACK OPERATOR documented in this encounter Results * (ABNORMAL) TXP External Lab Result (06/24/2014 8:37 AM MUD JACK OPERATOR) Sodium (External) 139 135 - 145 mmol/L [...] 11.0 fL LABDE SCAN 06/24/2014 8:37 AM MUD JACK OPERATOR Narrative JESSICA PFT - 06/24/2014 2:52 PM MUD JACK OPERATOR Verified by Sofie Verdin on 06/24/2014. Patient Reported LABORATORY BREEZE PFT LABDE SCAN documented in this encounter Visit Diagnoses Not on filedocumented in this encounter Care Teams It Sales Representative Relationship Specialty Start Date End Date Momo Forbes MD PCP - General Family Practice 01/02/14 Ingrid Santana, RN Registered Nurse Transplant 02/10/12 10/01/15 Joseph Quintana MD [address] [place] [id number] Assigned Nephrology Provider 03/29/21 09/10/22 documented as of this encounter
--- OUTSIDE RECORDS SUMMARY | 2023-09-21 11:25 | XMS_ITS | Encounter Summary ---
Author Name Unknown Organization [facility] Address [address] [place] [address]. [place] [address] Care Team Providers Care Objective C Developer Name Role Phone Ingrid Santana RN Unavailable Unavailable Momo Forbes MD Primary Care Provider Joseph Quintana MD Unavailable [phone] Encounter Details Date Type Department Care Team (Late st Contact Info) Description 07/17/2014 External Order Results [facility] [address] [place] [phone] Nurse, [facility] Social History Tobacco Use Types Packs/Day Years [...] EXTERNAL LAB RESULTS Routine 07/15/2014 8:28 AM FISH HOUSEKEEPER documented in this encounter Results * (ABNORMAL) TXP External Lab Result (07/15/2014 8:28 AM FISH HOUSEKEEPER) Sodium (External) 138 135 - 145 mmol/L [...] 11.0 fL LABDE SCAN 07/15/2014 8:28 AM FISH HOUSEKEEPER Narrative JESSICA PFT - 07/17/2014 8:35 AM FISH HOUSEKEEPER Verified by Maribel Plunkett on 07/17/2014. Patient Reported LABORATORY BREEZE PFT LABDE SCAN documented in this encounter Visit Diagnoses Not on filedocumented in this encounter Care Teams Objective C Developer Relationship Specialty Start Date End Date Momo Forbes MD PCP - General Family Practice 01/02/14 Ingrid Santana, RN Registered Nurse Transplant 02/10/12 10/01/15 Joseph Quintana MD [address] [place] [address] Assigned Nephrology Provider 03/29/21 09/10/22 documented as of this encounter
--- OUTSIDE RECORDS SUMMARY | 2023-09-21 11:25 | XMS_ITS | Encounter Summary ---
Author Name Unknown Organization [facility] Address [address] [place] [address]. [place] [address] Care Team Providers Care Furnace Operator Oil Or Gas Name Role Phone Ingrid Santana RN Unavailable Unavailable Momo Forbes MD Primary Care Provider Joseph Quintana MD Unavailable [phone] Encounter Details Date Type Department Care Team (Late st Contact Info) Description 07/10/2014 External Order Results [facility] [address] [place] [phone] Nurse, [facility] Social History Tobacco Use Types Packs/Day [...] EXTERNAL LAB RESULTS Routine 07/08/2014 8:17 AM CROSS TIE TRAM LOADER documented in this encounter Results * (ABNORMAL) TXP External Lab Result (07/08/2014 8:17 AM CROSS TIE TRAM LOADER) Sodium (External) 138 135 - 145 mmol/L [...] 11.0 fL LABDE SCAN 07/08/2014 8:17 AM CROSS TIE TRAM LOADER Narrative JESSICA PFT - 07/10/2014 6:20 AM CROSS TIE TRAM LOADER Verified by Janee Alexis on 07/10/2014. Patient Reported LABORATORY JESSICA PFT LABDE SCAN documented in this encounter Visit Diagnoses Not on filedocumented in this encounter Care Teams Furnace Operator Oil Or Gas Relationship Specialty Start Date End Date Momo Forbes MD PCP - General Family Practice 01/02/14 Ingrid Santana, RN Registered Nurse Transplant 02/10/12 10/01/15 Joseph Quintana MD [address] [place] [address] Assigned Nephrology Provider 03/29/21 09/10/22 documented as of this encounter
== END 2023-09-21 11:15 | disposition home or self-care (01) ==
LOC: WOUND 11:14
PROVIDERS: PCP Family Medicine; Visit Provider Family Medicine
DX: L89.313 Pressure ulcer of right buttock, stage 3 (principal); I87.311 Chronic venous hypertension (idiopathic) with ulcer of right lower extremity; L97.812 Non-pressure chronic ulcer of other part of right lower leg with fat layer exposed
CPT/HCPCS: 11042

== ENCOUNTER 2023-09-28 11:06 | Outpatient (CLI) | payer MEDICARE, BC, SELFPAY | END 2023-09-28 11:07 | disposition home or self-care (01) | LOC: WOUND 11:06 | PROVIDERS: PCP Family Medicine; Visit Provider Family Medicine | DX: I87.311 Chronic venous hypertension (idiopathic) with ulcer of right lower extremity (principal); L97.812 Non-pressure chronic ulcer of other part of right lower leg with fat layer exposed; L89.313 Pressure ulcer of right buttock, stage 3; E11.41 Type 2 diabetes mellitus with diabetic mononeuropathy; L02.212 Cutaneous abscess of back [any part, except buttock and flank]; Z79.4 Long term (current) use of insulin | CPT/HCPCS: 10060; 11042; G0463 ==

== ENCOUNTER 2024-03-15 12:51 | Outpatient (CLI) | payer MEDICARE, BC, SELFPAY ==
--- OUTSIDE RECORDS SUMMARY | 2024-03-15 12:55 | XMS_ITS | Referral Summary ---
Author Organization [facility] Address [address] [place] [id number] Care Team Providers Care Home Theater Installer Name Role Phone Elsewhere, Pcp Primary Care Provider Unavailabl e Source Comments Patient records contain information from all sites at [facility]. For routine questions regarding patient records, call [phone] during business hours, M-F 8:00 AM - 5:00 PM Central Time. Record requests for emergency care only can be directed to [phone] at any time.[facility] Encounters Date Type Department Care Team Description 03/09/2024 Orders Only Division of Pending Sale To [facility], [place], [place] [address] [place] [address] Manoj Davalos APRN C.N.P., M.S.N. 03/09/2024 Refill Division of Pending Sale To [facility], [place], [place] [address] [place] [address] Manoj Davalos APRN C.N.P., M.S.N. Med Refill 03/09/2024 Refill Division of Pending Sale To [facility], [place], [place] [address] [place] [address] Manoj Davalos APRN C.N.P., M.S.N. Med Refill 03/09/2024 Orders Only Pharmacy Prior Auth [phone] Ruby Aguiar 03/08/2024 Clinical Communication Department of [facility] in [place], [place] [address] [place] [address] Arlette Nath APRN C.N.P. Home Health Care 03/06/2024 10:00 AM CDT External Outreach Senior Services in [facility] [address] [phone] Manoj Davalos APRN, C.N.P., M.S.N. 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 (HCC); Anemia Iron Deficiency; Anxiety Generalized Disorder; Apnea Sleep Obstructive; Atrial Fibrillation Permanent (HCC); 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 Rate 15-29 ([facility]); Chronic Respiratory Failure (HCC); Depression Major Recurrent Moderate ([facility]); Diabetes Mellitus Type 2 Ulcer Foot ([facility]); Diabetes Mellitus Type 2 With Diabetic Neuropathy ([facility]); Edema; 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[facility]); Gastroesophageal Reflux Disease Without Esophagitis; Hypertension Secondary To Other Renal Disorders; Hypothyroidism On Replacement; Insomnia; Immunodeficiency Due To Conditions Classified Elsewhere ([facility]); Lesion Scrotum; Prison (Current) Anticoagulant Treatment; Prison Use Of Insulin Active ([facility]); Long Term 30 Day Certification Exam; Polyneuropathy; Transplant Renal ([facility]); Tremor; Weakness General; Rash 02/24/2024 10:30 AM CDT Internal E-Consult Department of Neurology in [address] [place] [phone] Samir Fregoso M.D., Ph.D. Tremor (Primary Dx) 02/23/2024 Orders Only Division of Pending Sale To [facility], [place], [place] [address] [place] [address] Manoj Davalos APRN, C.N.P., M.S.N. Presyncope (Primary Dx) 02/17/2024 Orders Only Division of Pending Sale To [facility], [place], [place] [address] [place] [address] Manoj Davalos APRN, C.N.P., M.S.N. 02/16/2024 10:00 AM CDT External Outreach [facility] in [place] [address] [address] Arlette Nath APRN, C.N.P. Advanced Care Planning (Primary Dx); 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 (HCC); Anxiety Generalized Disorder; Apnea Sleep Obstructive; Atrial Fibrillation Permanent (HCC); Hypothyroidism On Replacement; Chronic Diastolic (Congestive) Heart Failure (HCC); Chronic Respiratory Failure (HCC); Depression Major Recurrent Moderate (HCC); 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HCC); Gastroesophageal Reflux Disease Without Esophagitis; Hyperlipidemia; Transplant Renal (HCC); Pancreas Disease; Paralysis Diaphragm; Polyneuropathy; Lesion Scrotum; Long Term 30 Day Certification Exam 02/13/2024 3:00 PM CDT External Outreach [facility] in [place] [address] [address] Arlette Nath APRN, C.N.P. Chronic Diastolic (Congestive) Heart Failure (HCC) (Primary Dx) 02/10/2024 11:09 AM CDT - 02/10/2024 1:49 PM CDT Emergency [facility] [address] [place] [phone] Hypokalemia (Primary Dx) Discharge Disposition: Home or Self Care 02/10/2024 10:00 AM CDT External Outreach [facility] in [place] [address] [address] Manoj Davalos APRN, C.N.P., M.S.N. 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 Spells Undifferentiated (Primary Dx); Chronic Diastolic (Congestive) Heart Failure (HCC) 02/06/2024 10:00 AM CDT External Outreach [facility] in [place] [address] [address], [place] [address] Arlette Nath APRN, C.N.P. Injury Scrotum Subsequent (Primary Dx); Chronic Diastolic (Congestive) Heart Failure (HCC) 01/31/2024 Clinical Communication Department of [facility] in [place], [place] [address] [place] [address] Arlette Nath APRN, C.N.P. Results 01/30/2024 Orders Only Department of Cardiovascular Diseases in [place], [place] [address], [place] [phone] Aubrey Little M.D. 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 Rate 15-29 (HCC) (Primary Dx); Chronic Diastolic (Congestive) Heart Failure (HCC); Atrial Fibrillation Permanent (HCC) 01/30/2024 10:00 AM CDT External Outreach [facility] in [place] [address] [address] [address] Arlette Nath APRN, C.N.P. Chronic Diastolic (Congestive) Heart Failure (HCC) (Primary Dx); Injury Scrotum Subsequent 01/24/2024 Clinical Communication Division of [facility], [facility] in [address] [place] [address] Opal Piña Appt Request 01/23/2024 11:00 AM CDT - 01/23/2024 11:59 PM CDT Hospital Encounter Department of Radiology in [place], [place] [address], [place] [address] Arlette Nath APRN, C.N.P. Injury Scrotum Subsequent Discharge Disposition: Home or Self Care 01/21/2024 Orders Only [facility] in [place] [address] [address], [place] [address] Victorina Braun M.D. 01/19/2024 Orders Only [facility] in [place] [address] [place] [phone] Arlette Nath APRN, C.N.P. Injury Scrotum Subsequent (Primary Dx) 01/19/2024 10:00 AM T External Outreach [facility] in [place] [address] [phone] Victorina Braun M.D. 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 (HCC); Apnea Sleep Obstructive; Atrial Fibrillation Permanent (HCC); Chronic Respiratory Failure (HCC); Depression Major Recurrent Moderate (HCC); Diabetes Mellitus Type 2 With Diabetic Neuropathy (HCC); Gastroesophageal Reflux Disease Without Esophagitis; Hyperlipidemia; Hypertension Secondary To Other Renal Disorders; Hypothyroidism On Replacement; Immunodeficiency Due To Conditions Classified Elsewhere (HCC); Insomnia; Tobacco Stemmer (Current) Anticoagulant Treatment; Prison Use Of Insulin Active (HCC); Paralysis Diaphragm; Transplant Renal (HCC); Tremor; Other Retention Of Urine 01/17/2024 10:00 AM T External Outreach [facility] in [place] [address] [place] [phone] Manoj Davalos APRN, C.N.P., M.S.N. 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); Transplant Renal (HCC); Tremor; Gain Weight; Advanced Care Planning; Anemia Iron Deficiency; Anxiety Generalized Disorder; Apnea Sleep Obstructive; Atrial Fibrillation Permanent (HCC); Chronic Diastolic (Congestive) Heart Failure (HCC); Depression Major Recurrent Moderate (HCC); 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); Diabetes Mellitus Type 2 With Diabetic Neuropathy (HCC); Edema; Gastroesophageal Reflux Disease Without Esophagitis; Hyperlipidemia; Hypertension Secondary To Other Renal Disorders; Hypothyroidism On Replacement; Insomnia; Prison (Current) Anticoagulant Treatment; Tobacco Stemmer Use Of Insulin Active (HCC); Morbid Obesity (HCC); Long Term Stay Certification Exam; Polypharmacy; Sleep Disorder; Weakness General 01/05/2024 9:15 AM CDT - 01/05/2024 1:59 PM CDT Emergency [facility] [address] [place] [phone] Congestive Heart Failure (HCC) (Primary Dx) Discharge Disposition: Home or Self Care 01/05/2024 3:00 PM CDT External Outreach [facility] in [place] [address] [place] [phone] Victorina Braun M.D. Chronic Diastolic (Congestive) Heart Failure (HCC) (Primary Dx) 01/04/2024 3:00 PM CDT External Outreach [facility] in [place] [address] [phone] Arlette Nath APRN, C.N.P. 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 12/26/2023 10:00 AM CDT External Outreach [facility] in [place] [address] [place] [phone] Victorina Braun M.D. 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); Anemia Of Chronic Renal Disease; Chronic Respiratory Failure (HCC); Anxiety Generalized Disorder; Apnea Sleep Obstructive; 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HCC); Atrial Fibrillation Permanent (HCC); Chronic Diastolic (Congestive) Heart Failure (HCC); Depression Major Recurrent Moderate ([facility]); Diabetes Mellitus Type 2 With Diabetic Neuropathy ([facility]); Gastroesophageal Reflux Disease Without Esophagitis; Hyperlipidemia; Hypothyroidism On Replacement; Immunodeficiency Due To Conditions Classified Elsewhere ([facility]); Insomnia; Prison (Current) Anticoagulant Treatment; Prison Use Of Insulin Active ([facility]); Morbid Obesity ([facility]); Other Urethral 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; Transplant Renal ([facility]); Paralysis Diaphragm 12/24/2023 Orders Only Senior Services in [facility] [address] [place] [phone] Victorina Braun M.D. 12/23/2023 10:00 AM CDT External Outreach [facility] in [facility] [address] [address] Manoj Davalos APRN, C.N.P., M.S.N. 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 Rate 15-29 ([facility]) (Primary Dx); Anemia Iron Deficiency; Immunodeficiency Due To Conditions Classified Elsewhere ([facility]); Pressure Injury (Ulcer) Of Right Ankle Stage 2 ([facility]); 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 ([facility]); Chronic Diastolic (Congestive) Heart Failure ([facility]); Depression Major Recurrent Moderate ([facility]); Diabetes Mellitus Type 2 With Diabetic Neuropathy ([facility]); Atrial Fibrillation Permanent ([facility]); Morbid Obesity ([facility]); Weakness General; Advanced Care Planning; Long Term Stay Certification Exam; Polypharmacy; Rash; Anemia Of Chronic Renal Disease; Anxiety Generalized Disorder; Apnea Sleep Obstructive; Diabetes Mellitus Type 2 Ulcer Foot ([facility]); Gastroesophageal Reflux Disease Without Esophagitis; Hyperlipidemia; Hypertension Secondary To Other Renal Disorders; Hypothyroidism On Replacement; Tobacco Stemmer Use Of Insulin Active ([facility]); Major Depressive Disorder Single Episode Unspecified; Malignant Neoplasm Of Skin Basal Cell Carcinoma; Insomnia; Transplant Renal ([facility]); Bradycardia; Tobacco Stemmer (Current) Anticoagulant Treatment; Sleep Disorder from Last 3 Months Allergies Active Allergy Reactions Criticality Noted Date Comments Lisinopril Cough 05/14/2014 Medications Medication Sig Dispensed Refills Start Date End Date Status apixaban (ELIQUIS) 2.5 mg tablet Take 1 tablet (2.5 mg total) by mouth 2 (two) times a day. 60 tablet 3 Active benzonatate (TESSALON PERLES) 100 mg capsule Take 100 mg by mouth 3 (three) times a day as needed. 4 Active guaiFENesin (MUCINEX) 600 mg 12 hr tablet Take 600 mg by mouth 2 (two) times a day as needed. 4 Active DME OxygenIndicatio ns:Chronic Diastolic (Congestive) Heart Failure (HCC) DME Order - for details see Order Report 1 each 4 Active acetaminophen (TylenoL) 500 mg tablet Take 2 tablets (1,000 mg total) by mouth every 6 (six) hours. 240 tablet 04/06/20 24 Active albuterol 90 mcg/actuation inhaler Inhale 2 puffs every 6 (six) hours as needed for shortness of breath or wheezing. 6.7 g 4 04/06/20 24 Active escitalopram (Lexapro) 20 mg tablet Take 1 tablet (20 mg total) by mouth daily. 30 tablet 04/06/20 24 Active hydrALAZINE (Apresoline) 10 mg tablet Take 4 tablets (40 mg total) by mouth every 8 (eight) hours. 360 tablet 04/06/20 Active insulin aspart U-100 (NovoLOG FlexPen) 100 unit/mL (3 mL) injection Inject 1-6 Units under the skin 3 (three) times a day with meals. Sliding scale 5.4 mL 04/06/20 24 Active insulin glargine-yfgn (Semglee) 100 unit/mL (3 mL) injection Inject 20 Units under the skin at bedtime. 6 mL 04/06/20 24 Active isosorbide dinitrate (IsordiL) 40 mg tablet Take 1 tablet (40 mg total) by mouth 3 (three) times a day. 90 tablet 04/06/20 24 Active levothyroxine 100 mcg tablet Take 1 tablet (100 mcg total) by mouth daily. 30 tablet 4 04/06/20 24 Active melatonin 3 mg tablet Take 1 tablet (3 mg total) by mouth at bedtime. 30 tablet 04/06/20 24 Active miconazole 2 % powderIndicatio ns:Rash Apply 1 Application topically 3 (three) times a day. Apply to groin rash area 3 times daily. 43 g 4 04/06/20 24 Active pantoprazole (Protonix) 40 mg EC tablet Take 1 tablet (40 mg total) by mouth daily before morning meal. 30 tablet 4 04/06/20 24 Active polyethylene glycol (Miralax) 17 gram/dose oral powder Take 17 g by mouth daily. Dissolve each 17 g dose in 240 mL (8 ounces) of beverage. 100 g 4 Active pregabalin (Lyrica) 150 mg capsule Take 1 capsule (150 mg total) by mouth at bedtime. 30 capsule 4 04/06/20 24 Active rosuvastatin (Crestor) 10 mg tablet Take 1 tablet (10 mg total) by mouth at bedtime. 30 tablet 4 04/06/20 24 Active sennosides (senna) 8.6 mg tablet Take 2 tablets (17.2 mg total) by mouth at bedtime. 60 tablet 4 04/06/20 24 Active tacrolimus (Prograf) 0.5 mg capsuleIndicati ons:prevention of kidney transplant rejection Take 1 capsule (0.5 mg total) by mouth 2 (two) times a day Indications: prevent kidney transplant rejection. 60 capsule 4 04/06/20 24 Active tamsulosin (Flomax) 0.4 mg 24 hr capsule Take 1 capsule (0.4 mg total) by mouth 2 (two) times a day. 60 capsule 4 04/06/20 24 Active torsemide 40 mg tabletIndicatio ns:peripheral edema due to chronic heart failure Take 40 mg by mouth 2 (two) times a day Indications: accumulation of fluid resulting from chronic heart failure. 30 tablet 4 04/06/20 24 Active ipratropium-alb uteroL (DuoNeb) 0.5-2.5 mg/3 mL nebulizer solution Inhale 3 mL by nebulization every 6 (six) hours as needed for wheezing. J96.10 180 mL 4 Active mycophenolate (CellCept) 250 mg capsule Take 2 capsules (500 mg total) by mouth every 12 (twelve) hours. Z94.0 120 capsule 4 Active tacrolimus (PROGRAF) 0.5 mg capsuleIndicati ons:prevention of kidney transplant rejection Take 1 capsule (0.5 mg total) by mouth 2 (two) times a day Indications: prevent kidney transplant rejection. 60 capsule 3 03/07/20 24 Discontinued(Reo rder) escitalopram (LEXAPRO) 20 mg tablet Take 1 tablet (20 mg total) by mouth daily. 30 tablet 3 03/07/20 24 Discontinued(Reo rder) rosuvastatin (CRESTOR) 10 mg tablet Take 1 tablet (10 mg total) by mouth at bedtime. 30 tablet 3 03/07/20 24 Discontinued(Reo rder) tamsulosin (FLOMAX) 0.4 mg 24 hr capsule Take 1 capsule (0.4 mg total) by mouth 2 (two) times a day. 60 capsule 11 3 03/07/20 Discontinued(Reo rder) melatonin 3 mg tablet Take 1 tablet (3 mg total) by mouth at bedtime. 30 tablet 4 03/07/20 Discontinued(Reo rder) sennosides (senna) 8.6 mg tablet Take 2 tablets (17.2 mg total) by mouth at bedtime. 60 tablet 03/07/20 Discontinued(Reo rder) carvediloL (COREG) 6.25 mg tablet Take 6.25 mg by mouth 2 (two) times a day with meals. 03/07/20 Discontinued ipratropium-alb uteroL (DUONEB) 0.5-2.5 mg/3 mL nebulizer solution Inhale 3 mL every 6 (six) hours as needed. 03/07/20 Discontinued(Reo rder) insulin aspart U-100 (NovoLOG FlexPen) 100 unit/mL (3 mL) injection Inject 1-6 Units under the skin 3 (three) times a day with meals. Sliding scale 03/07/20 Discontinued(Reo rder) miconazole (MICATIN) 2 % powderIndicatio ns:Rash Apply 1 Application topically 3 (three) times a day. Apply to groin rash area 3 times daily. 4 03/07/20 Discontinued(Reo rder) pantoprazole (PROTONIX) 40 mg EC tablet Take 1 tablet (40 mg total) by mouth every morning before breakfast. 4 03/07/20 24 Discontinued(Reo rder) levothyroxine (SYNTHROID, LEVOTHROID) 100 mcg tablet Take 1 tablet (100 mcg total) by mouth daily. 4 03/07/20 24 Discontinued(Reo rder) acetaminophen (TYLENOL) 500 mg tablet Take 1,000 mg by mouth every 6 (six) hours. 03/07/20 Discontinued(Reo rder) albuterol 90 mcg/actuation inhaler Inhale 2 puffs every 6 (six) hours as needed for shortness of breath or wheezing. 4 03/07/20 Discontinued(Reo rder) polyethylene glycol (MIRALAX) 17 gram/dose oral powder Take 17 g by mouth daily. Dissolve each 17 g dose in 240 mL (8 ounces) of beverage. 03/07/20 Discontinued(Reo rder) mycophenolate (CELLCEPT) 250 mg capsule Take 2 capsules (500 mg total) by mouth every 12 (twelve) hours. 03/07/20 24 Discontinued(Reo rder) pregabalin (LYRICA) 150 mg capsule Take 1 capsule (150 mg total) by mouth at bedtime. 30 capsule 4 02/17/20 24 Discontinued(Reo rder) hydrALAZINE (APRESOLINE) 10 mg tablet Take 40 mg by mouth every 8 (eight) hours. 03/07/20 Discontinued(Reo rder) isosorbide dinitrate (ISORDIL) 40 mg tablet Take 40 mg by mouth 3 (three) times a day. 03/07/20 Discontinued(Reo rder) insulin lispro (HumaLOG KwikPen Insulin) 100 unit/mL injection Inject 1-6 Units under the skin 3 (three) times a day with meals. Per Sliding Scale If Blood Sugar is 150 to 199, give 1 Units. If Blood Sugar is 200 to 249, give 2 Units. If Blood Sugar is 250 to 299, give 3 Units. If Blood Sugar is 300 to 349, give 4 Units. If Blood Sugar is 350 or greater give 7 units Pharmacy select brand per patient insurance/prefer ence. 4 03/07/20 24 Discontinued insulin glargine-yfgn (SEMGLEE) 100 unit/mL (3 mL) injection Inject 20 Units under the skin at bedtime. 4 03/07/20 24 Discontinued(Reo rder) metOLazone (Zaroxolyn) 2.5 mg tablet Take 1 tablet (2.5 mg total) by mouth every other day. 30 tablet 5 4 03/07/20 24 Discontinued torsemide 40 mg tabletIndicatio ns:peripheral edema due to chronic heart failure Take 40 mg by mouth 2 (two) times a day Indications: accumulation of fluid resulting from chronic heart failure. 03/07/20 24 Discontinued(Reo rder) pregabalin (Lyrica) 150 mg capsule Take 1 capsule (150 mg total) by mouth at bedtime. 30 capsule 4 03/07/20 24 Discontinued(Reo rder) DME OxygenIndicatio ns:Chronic Diastolic (Congestive) Heart Failure (HCC) DME Order - for details see Order Report 1 each 4 03/07/20 24 Discontinued ipratropium-alb uteroL (DuoNeb) 0.5-2.5 mg/3 mL nebulizer solution Inhale 3 mL by nebulization every 6 (six) hours as needed for wheezing. 180 mL 4 03/09/20 24 Discontinued(Reo rder) mycophenolate (CellCept) 250 mg capsule Take 2 capsules (500 mg total) by mouth every 12 (twelve) hours. 120 capsule 4 03/09/20 24 Discontinued(Reo rder) Hospital, Clinic, or Other Facility Administered Medication Ordered Dose Route Frequency Start Date End Date Status LORazepam tablet 1 mg (ATIVAN) 1 mg oral Once 08/08/2023 03/07/2024 Discontinued Active Problems Problem Noted Date Diagnosed Date Long Term 30 Day Certification Exam 4 Overview (02/16/2024): SNF Recertification History per: Staff and patient Acute staff/patient/family concerns: no Diet: General Eating at meals: 75% Pain information: Pain Medications acetaminophen (TYLENOL) 500 mg tablet Take 1,000 mg by mouth every 6 (six) hours. escitalopram (LEXAPRO) 20 mg tablet Take 1 tablet (20 mg total) by mouth daily. pregabalin (LYRICA) 150 mg capsule Take 1 capsule (150 mg total) by mouth at bedtime. Skin concerns/wounds: healing Falls/incidents: no Therapies/Rehab: PT and OT Psych/behaviors: no BIMS: No data PHQ-9: No data Bladder: Incontinence Bowel: Continent ADL status: Ambulation: Walker Meals: Set-up for meal Transfers: Supervision Dressing: Dresses self Bathing: Supervision Dismissal planning: [Rehab and appropriate placement to be determined] Assessment & Plan (03/07/2024 9:25 PM CDT): Patient discharging home to partner with in-home PT/ OT /nursing. Assessment & Plan (02/16/2024 5:26 PM CDT): Patient remains appropriate long-term resident. Recertification paperwork signed following our visit, this included review of medications and orders. Current comorbidities, ADL need/level of debility requires skilled care/therapy. Medications and labs all reviewed and appropriate related to comorbidities, unless otherwise indicated. Physician order sheet signed. Continue restorative therapy, nutrition intervention, skin protection, and fall prevention. Patient remains appropriate long-term resident. Recertification paperwork signed following our visit, this included review of medications and orders. Hypokalemia 02/11/2024 Overview (02/11/2024): 02/10/2024: Hypokalemia of 2.6 reported. Potassium chloride supplement 40MEQ stat given then potassium chloride 40MEQ p.o. twice daily x 2 days. Resume potassium chloride 40MEQ daily. Lab Results Component Value Date NA 141 02/10/2024 KSERUM 2.9 (L) 02/10/2024 KBLOOD 11/20/2023 Comment: Unable to determine. KPLASMA 3.1 (L) 09/07/2022 CL 91 (L) 02/10/2024 BICARB 35 (H) 02/10/2024 CREATININE 3.63 (H) 02/10/2024 EGFRBLKAA >60 12/03/2020 EGFRNONBLKAA 60 (L) 12/03/2020 EGFR 31 (L) 09/07/2022 BUN 85 (H) 02/10/2024 ANIONGAP 15 02/10/2024 GLUCOSE 187 (H) 02/10/2024 GLUCOSEPOC 226 (H) 11/02/2022 CALCIUM 9.6 02/10/2024 Assessment & Plan (02/11/2024 5:35 PM CDT): Facility had called on MD who ordered potassium chloride supplement 40mEQ stat plus potassium chloride 20MEQ 3 times daily. But, during round, seeing order factors and elevated creatinine level, patient was sent to the ED for further evaluation of hypokalemia. Spells Undifferentiated 02/09/2024 Overview (02/09/2024): Nursing and therapy report he was walking to therapy when he froze He was staring then slumped down over his walker complaining of a headache. He did not follow directions. Neuro intact per nurse and therapy. BS in the 200's.He sat in his wheelchair. Nurse reports that he was unable to follow commands to take a deep breath. He slowly started to become more alert. He refused to go to the ED. He finally agreed to lie down in his bed. He is currently a full code and stated he wanted to be DNR/DNI then changed his mind when the nurse asked if she should find him with no heartbeat or breathing would he want to be resuscitated, he replied yes. I called his girlfriend Tete to come to the custodial to be a part of a discussion on his code status. He wants to be full code but does not want to go to the hospital. Assessment & Plan (02/09/2024 11:31 AM CDT): Nursing will monitor Blood pressure and pulse every shift x 3 days Lesion Scrotum 01/30/2024 Overview (01/30/2024): Posterior scrotal wound. Assessment & Plan (03/07/2024 9:24 PM CDT): Nursing reports that wound is healing well. Discharging home with in-home nursing for wound dressing. Assessment & Plan (02/16/2024 5:23 PM CDT): Nursing reports that wound is healing Assessment & Plan (02/06/2024 4:10 PM CDT): The wound measures 2.8 cm x 1.4 x superficial, 10 % slough with epiboly on the proximal edge. Wound was cleansed with wound wash and dried with gauze. Silver calcium alginate was cut to fit the wound. Covered with gauze and Mepitel one. Assessment & Plan (01/30/2024 6:01 PM CDT): This was initially an area of necrosis. The wound eschar has dissolved and the wound bed is pink/red with areas of slough. Scrotal US showed no depth of the wound into the scrotal sac. Wound will be cleansed with saline or vashe. Pat dry. Apply a this layer of santyl to the wound bed. Cover with a 2 x 2 and secure with a Mepitel one. Change daily. Other Retention Of Urine 01/24/2024 Overview (01/24/2024): Gbibs catheter placed during hospitalization December 2023. Assessment & Plan (01/24/2024 7:32 PM CDT): He did not have a catheter previously but has had urethral stricture. Will DC Gibbs and trial voiding with orders to straight cath b.i.d. if bladder scan postvoid residual greater than 200 cc. Tremor 01/22/2024 Assessment & Plan (03/07/2024 9:27 PM CDT): He has bilateral resting tremor of his arms and occasional jerking of his trunk. Certainly contributed to by recent massive diuresis. Chemistries were checked on 01/16 and were unremarkable other than known renal insufficiency. See e- neurology consult. Assessment & Plan (01/24/2024 7:27 PM CDT): He has bilateral resting tremor of his arms and occasional jerking of his trunk. Certainly contributed to by recent massive diuresis. Chemistries were checked on 01/16 and were unremarkable other than known renal insufficiency. Will repeat and add magnesium. May need neurology consult. Assessment & Plan (01/22/2024 5:03 PM CDT): Patient reported increasing tremors. He could not remember the last time he sees Neurology. EHR showed last visit with Neurology on 05/20/2010 at [facility]. Mild tremor noticed during this visit but not impacting his ADLs. We will see if we can getting to see the neurology. Chronic Respiratory Failure 01/08/2024 Overview (01/08/2024): New chronic oxygen requirements at 3 L per nasal cannula since November 2023. [place] multifactorial including acute on chronic congestive heart failure and right diaphragm paralysis. Assessment & Plan (03/07/2024 9:16 PM CDT): On continuous oxygen with nasal cannula 2LNC. Oxygen saturations chronically are low when he is active ranging from 81% to 89 %. Assessment & Plan (02/16/2024 5:10 PM CDT): On continuous oxygen with nasal cannula. Sats chronically are low when he is active. They recover quickly with rest Assessment & Plan (01/24/2024 7:35 PM CDT): Orders are in place to wean oxygen as able. Assessment & Plan (01/22/2024 8:57 AM CDT): Patient continues to be on continuous oxygen supplement 1-3LNC. Denied worsening respiratory failure. 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 Contributing to chronic respiratory failure Need for BiPAP with sleep Assessment & Plan (02/16/2024 5:21 PM CDT): Uses continuous oxygen with nasal cannula Advanced Care Planning 12/23/2023 Overview (02/11/2024): DNR/DNI Assessment & Plan (02/16/2024 4:59 PM CDT): He is now DNR/DNI Assessment & Plan (02/11/2024 5:37 PM CDT): Had a lengthy discussion with the patient due to nurses concerns about his full code status, hypokalemia and other conditions going on and patient refusing to go to the ED. during this visit, patient change code status to DNR/DNI and agreed to go to the ED for further evaluation. Assessment & Plan (12/23/2023 1:34 PM CDT): Patient verbalized he will like to be full code status while in the nursing Polypharmacy 12/23/2023 Overview (12/23/2023): All medications reviewed at least bimonthly for adverse events, interactions, and continued indication/appropriateness. Reduction as able. Tobacco Stemmer Use Of Insulin Active 07/04/2023 Overview (07/04/2023): He uses long and short-acting insulins. Assessment & Plan (01/22/2024 9:00 AM CDT): Continue insulin for blood sugar control Assessment & Plan (12/25/2023 8:14 AM CDT): Continue insulin for blood sugar control Assessment & Plan (07/11/2023 3:32 PM EXTENDER): He will need diabetic follow up with his PCP after discharge. Weakness General 07/04/2023 Overview (01/08/2024): This is multifactorial and related to recent hospitalization, chronic respiratory failure, deconditioning, and immunodeficiency. Assessment & Plan (03/07/2024 9:27 PM CDT): This is expected to improve with therapies. Assessment & Plan (01/22/2024 9:03 AM CDT): This is expected to improve with therapies. Assessment & Plan (01/08/2024 3:43 PM CDT): This is expected to improve with therapies. Assessment & Plan (12/25/2023 8:16 AM CDT): PT/OT to evaluate and treat. Assessment & Plan (07/11/2023 3:27 PM EXTENDER): His strength has improved with therapy. He [...] or allowed practitioner. The patient had a [id number] encounter with a physician or an allowed [...] services: Dr. Momo Nath APRN, C.N.P. 07/11/23 Assessment & Plan (07/04/2023 7:15 PM EXTENDER): This is expected to improve with continued resolution of acute illness and with therapies. Cystitis Recurrent 07/04/2023 Overview (07/04/2023): Multiple recent urine infections with some leading to hospitalization. Urology evaluation 10/18/2022 with cystoscopy suggested urethral stricture as possible contributing factor. Assessment & Plan (07/04/2023 8:13 PM EXTENDER): He has completed a course of IV ceftriaxone and is awaiting clearance from Infectious Disease to pull PICC line. Prison (Current) Anticoagulant Treatment 06/22 Overview (07/04/2023): On apixaban in the setting of atrial fibrillation. Assessment & Plan (01/22/2024 9:00 AM CDT): Continue apixaban Assessment & Plan (12/25/2023 8:13 AM CDT): Continue apixaban Assessment & Plan (07/04/2023 8:25 PM EXTENDER): He saw Cardiology 06/23/2023 at which time it was suggested that he may be on subtherapeutic dose of apixaban. It is unclear if he has had bleeding complications. Will defer to primary in the outpatient setting. Hypothyroidism On Replacement 07/04/2023 Overview (03/07/2024): Managed on levothyroxine 100 mcg daily. Lab Results Component Value Date TSH 3.69 01/26/2024 Assessment & Plan (03/07/2024 9:22 PM CDT): Continue medication Assessment & Plan (02/16/2024 5:05 PM CDT): Continue medication Assessment & Plan (01/22/2024 8:59 AM CDT): Asymptomatic. Continue care plan Assessment & Plan (12/25/2023 8:12 AM CDT): Rechecked TSH 6-8 weeks Assessment & Plan (07/04/2023 8:04 PM EXTENDER): Lab Results Component Value Date TSH 4.61 01/14/2023 Atrial Fibrillation Permanent 07/04/2023 Overview (03/07/2024): Has had difficulty with bradycardia and carvedilol has been discontinued. Assessment & Plan (03/07/2024 9:12 PM CDT): On tank terminal gauger anticoagulation with apixaban 2.5 mg bid Assessment & Plan (02/16/2024 5:04 PM CDT): On retirement anticoagulation with apixaban 2.5 mg bid Assessment & Plan (01/22/2024 8:47 AM CDT): HR controlled ranging from 53-61. Continue care plan Assessment & Plan (12/25/2023 8:01 AM CDT): HR controlled ranging from 53-61. Continue care plan Other Urethral 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 07/04/2023 Overview (07/04/2023): To evaluate recurrent urine infections, he underwent cystoscopy on 10/18/2022. 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 Recommendations at that time included: Adequate fluid intake Retract foreskin with each urination, clean and dry, and return foreskin to standing rock position. Returned to urology clinic in 6 months for uroflow and residual Returned to urology clinic sooner if recurrent infections Assessment & Plan (01/08/2024 3:51 PM CDT): Has had difficulty with urine retention during recent hospitalizations. This seems to improve with improvement in general status. For urine retention he is on tamsulosin. Assessment & Plan (07/11/2023 3:29 PM EXTENDER): Good hygiene and follow up with PCP and urology Assessment & Plan (07/04/2023 8:03 PM EXTENDER): He is due for urology follow-up, especially given hospitalization for infection. 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 Assessment & Plan (01/24/2024 7:34 PM CDT): Current orders are for insulin Lantus 20 at HS and 5 in the morning. He has had some low daytime sugars. Will discontinue the 5 units in the morning. Assessment & Plan (01/08/2024 3:40 PM CDT): Blood sugars are checked 4 times daily in the SNF setting with b.i.d. Lantus and lispro at mealtime. Lab Results Component Value Date HGBA1C 7.0 (H) 11/19/2023 Assessment & Plan (07/11/2023 3:37 PM EXTENDER): Levemir up to 42 units with Humalog sliding scale Gastroesophageal Reflux Disease Without Esophagi tis 07/04/2023 Overview (07/11/2023): Managed on protonix Assessment & Plan (03/07/2024 9:20 PM CDT): Asymptomatic. Continue Protonix. Assessment & Plan (02/16/2024 5:17 PM CDT): Continue protonix Assessment & Plan (01/22/2024 8:59 AM CDT): Asymptomatic, continue care plan Assessment & Plan (12/25/2023 8:07 AM CDT): Asymptomatic, continue care plan Assessment & Plan (07/11/2023 3:36 PM EXTENDER): Asymptomatic with medication Pressure Injury (Ulcer) Of Right Ankle Stage 2 1 09/03/2022 Overview (07/04/2023): Ulceration right lateral lower leg felt secondary to pressure from high top shoe. Assessment & Plan (07/11/2023 3:22 PM EXTENDER): Wound has slough with granulating buds. There was MRSA in the wound. He has completed a course of doxycycline today. Silverstat will be applied to the wound daily after cleaning with saline and drying with a gauze.a gauze will be applied and secured with a rolled gauze. Assessment & Plan (07/04/2023 8:30 PM EXTENDER): Recent culture grew MRSA. He was started on doxycycline and local cares. Wound looks much better today than previous reports. Insomnia 07/04/2023 Overview (07/11/2023): Latent sleep initiation. Assessment & Plan (03/07/2024 9:23 PM CDT): Patient verbalized adequate sleep with melatonin at bedtime. Assessment & Plan (01/22/2024 9:00 AM CDT): Patient verbalized adequate sleep with melatonin at bedtime. Assessment & Plan (12/25/2023 8:13 AM CDT): Patient verbalized inadequate sleep. He agrees to starting melatonin at bedtime. We will re-evaluate at m.d. admission Assessment & Plan (07/11/2023 3:32 PM EXTENDER): He is sleeping well with the melatonin Assessment & Plan (07/04/2023 8:48 PM EXTENDER): He is currently on zolpidem. Previous intent to discontinue. Will discontinue today. Diabetes Mellitus Type 2 Ulcer Foot 07/01/2023 Overview (03/07/2024): Lab Results Component Value Date HGBA1C 8.4 (H) 02/28/2024 Goal HgbA1C: <8.0 Oral: None Injectable: Insulin lispro and insulin glargine BG check frequency: 4 times daily Assessment & Plan (03/07/2024 9:19 PM CDT): Blood sugar fairly controlled ranging from home 157-286. Will have PCP follow closely post discharge. Assessment & Plan (01/22/2024 8:58 AM CDT): Blood sugar more controlled with current regimen. We will continue care plan. Re-evaluate during MD admission. Assessment & Plan (12/25/2023 8:07 AM CDT): Images from the original note were not included. Blood sugar more controlled with current regimen. We will continue care plan. Re-evaluate during MD admission. Assessment & Plan (07/11/2023 3:38 PM EXTENDER): He was treated for MRSA in the wound. Daily dressing changes. Assessment & Plan (07/01/2023 3:50 PM EXTENDER): Wound measures 1,.4 cm x 1 cm and 0,2 cm deep. Wound has inner [place] of slough with erythema in the periwound carmona. Wound was cleansed with saline and dried Wound culture obtained. Santyl will be applied to wound bed, covered with sterile 2 x 2 gauze and island dressing Change daily Anxiety Generalized Disorder 08/12/2022 Overview (01/08/2024): On escitalopram. Assessment & Plan (03/07/2024 9:11 PM CDT): Patient was in good mood, singing very loud verbalized he is happy discharging back home. Assessment & Plan (02/16/2024 5:02 PM CDT): He is stable on current dose. Assessment & Plan (01/22/2024 8:47 AM CDT): Nursing to monitor anxiety post hospitalization. Continue escitalopram Assessment & Plan (12/25/2023 7:59 AM CDT): Nursing to monitor anxiety post hospitalization. Continue escitalopram Assessment & Plan (07/01/2023 3:42 PM EXTENDER): Nursing to monitor anxiety Apnea Sleep Obstructive 08/12/2022 Overview (01/24/2024): Using the BiPAP with sleep in the setting of diaphragmatic paralysis Assessment & Plan (03/07/2024 9:11 PM CDT): Continue CPAP Assessment & Plan (02/16/2024 5:02 PM CDT): Continue CPAP Assessment & Plan (01/22/2024 8:47 AM CDT): No concerns, oxygen saturation ranging from 96-99% on 1.5 L nasal cannula. We will continue CPAP use. Assessment & Plan (12/25/2023 8:00 AM CDT): No concerns, oxygen saturation ranging from 96-99% on 2.5 L nasal cannula. We will continue CPAP use. Assessment & Plan (07/01/2023 3:41 PM EXTENDER): Nursing will monitor O2 Sats and apply oxygen to keep sats greater than 90% Edema 08/12/2022 Overview (01/04/2024): 4+ edema right leg. Assessment & Plan (03/07/2024 9:19 PM CDT): Right lower extremity +1 edema. Great improvement post diuretics adjustment. Assessment & Plan (02/11/2024 5:29 PM CDT): Right lower extremity 3+ edema. Patient is sent to the ED Assessment & Plan (01/22/2024 8:58 AM CDT): Trace of edema on right lower extremity. Assessment & Plan (01/04/2024 5:04 PM CDT): He is on torsemide 40 mg bid. Consult to Transplant nephrology for diuresis. Fistula Arteriovenous Acquired 08/12/2022 Overview (01/08/2024): Right forearm No longer used for dialysis. Assessment & Plan (03/07/2024 9:20 PM CDT): Intact no longer being used for dialysis. Assessment & Plan (02/16/2024 5:16 PM CDT): Intact Assessment & Plan (07/11/2023 3:37 PM EXTENDER): Lump under skin. Assessment & Plan (07/01/2023 3:35 PM EXTENDER): Fistula not used since renal transplant Malignant Neoplasm Of Skin Basal Cell Carcinoma 08/12/2022 Chronic Diastolic (Congestive) Heart Failure Overview (03/07/2024): Chronic heart failure with preserved ejection fraction. Final Impressions: 10/12/2023 1. Technically limited exam with poor acoustic windows. 2. Normal LV size, moderately increased wall thickness, low normal global systolic function with an estimated EF of ~50%. 3. Right ventricular cavity size is normal, global systolic RV function is mildly reduced. 4. Severely enlarged left atrium. 5. The aortic valve is trileaflet and calcified, no stenosis and mild regurgitation. 6. The mitral valve is sclerotic, mild mitral regurgitation. Hospitalized December 2023 and diuresed 35 to 54 lb. Wt Readings from Last 3 Encounters: 03/06/24 131 kg 02/16/24 127 kg 02/13/24 133 kg Assessment & Plan (03/07/2024 9:13 PM CDT): Continue hydralazine 40 mg, isosorbide 40 mg daily,torsemide 40 mg bid and potassium 40 meq daily. Improved right lower extremity edema. Assessment & Plan (02/16/2024 5:08 PM CDT): Continue hydralazine 40 mg, isosorbide 40 mg daily,torsemide 40 mg bid and potassium 40 meq daily. Draw CMP 02/20/24 Assessment & Plan (02/13/2024 2:01 PM CDT): He is on torsemide and metolazone. Renal function and electrolytes are being closely monitored. He recently was sent to the ED for hypokalemia. The hypokalemia has resolved. Status: Final result Next appt: 02/16/2024 at 10:00 AM in [facility] (Arlette Nath APRN, C.N.P.) Component Ref Range & Units 06:18 (02/13/24) 3 d ago (02/10/24) 3 d ago (02/10/24) 7 d ago (02/06/24) 11 d ago (02/02/24) 2 wk ago (01/26/24) 3 wk ago (01/20/24) EXT Sodium, S 136 - 145 mmol/L 139 141 140 140 144 146 High EXT Potassium, S 3.5 - 5.1 mmol/L 3.5 2.9 Low 2.6 Low Panic 3.2 Low 3.4 Low 3.9 4.6 EXT Chloride, S 98 - 107 mmol/L 93 Low 91 Low 94 Low 100 107 105 EXT Bicarbonate, S 22 - 29 mmol/L 33 High 35 High 35 High 29 27 28 EXT Anion Gap 5 - 18 13 15 11 11 10 13 EXT Glucose 70 - 99 mg/dL 255 High 187 High 231 High 243 High 142 High 101 High EXT Calcium, Total, S 8.8 - 10.2 mg/dL 10.1 9.6 9.5 9.6 9.2 9.8 EXT BUN (Blood Urea Nitrogen), S/P 8 - 23 mg/dL 93 High 85 High 66 High 48 High 36 High 53 High EXT Creatinine, S 0.70 - 1.20 mg/dL 3.45 High 3.63 High 3.20 High 2.70 High 2.48 High 2.89 High EXT BUN/CREAT RATIO 10 - 20 27 High 23 High 21 High 18 15 18 EXT eGFR >90 mL/min/1.73m2 18 Low 17 Low CM 20 Low CM 24 Low CM 27 Low CM 22 Low CM Comment: As of 2021, eGFR is calculated by the CKD-EPI creatinine equation without race adjustment. eGFR can be influenced by muscle mass, exercise, and diet. The reported eGFR is an estimation only and is only applicable if the renal function is Assessment & Plan (02/11/2024 5:27 PM CDT): Right lower extremity 3+ edema but denied shortness of breaths, wheezing, cough or chest pain. Weight drop of about 2.2 lb. We will continue care plan Assessment & Plan (02/09/2024 11:17 AM CDT): CMP will be drawn tomorrow. Metozolone will be changed to every other day. Assessment & Plan (02/06/2024 4:19 PM CDT): He has stabilized on the current regimen. His creat was 3.2 today with eGFR at 20. Metolazone will be given 30 minutes before the torsemide. Change torsemide to 40 mg bid. CMP in one week. Assessment & Plan (01/30/2024 2:22 PM CDT): He is slowly gaining weight in the custodial. He is on continuous oxygen. He has agreed to see [facility]. A referral will be sent. Torsemide will be increased to 60 bid alternating with 60 mg/40 mg. Zaroxolyn 2.5 mg will be added. Assessment & Plan (01/24/2024 7:29 PM CDT): He is starting to add some weight back. Will increase his torsemide from 60 and 40 to 60 mg b.i.d. for 5 days and then resume previous dose. Assessment & Plan (01/22/2024 8:56 AM CDT): Nursing reported increasing weight was crackles on both lungs and right lower extremity edema. Patient denied increasing shortness of breaths, wheezing, cough or chest pain. Patient is currently on torsemide 40 mg p.o. twice daily. But with patient's weight up and edema RLE, we will increase torsemide to 60 mg p.o. every morning and 40 mg p.o. in the afternoon. Monitoring weights and symptoms. Follow-up at .d. admission. Assessment & Plan (01/08/2024 3:36 PM CDT): Currently on torsemide 40 mg twice daily. Monitoring weights and symptoms. Assessment & Plan (01/04/2024 6:01 PM CDT): Message to Transplant nephrology. Waiting for response. MD to see tomorrow. Duoneb will be given qid x 3 days scheduled. Morphine 20 mg/ml, 2.5 mg q 4 hours prn to decrease pre-load of heart, prednisone 20 mg daily x 5 days. BMP, BNAP and CBC in AM . His large body habitus is prohibitive for portable xray in custodial. Gibbs catheter will be inserted tonight. UA/UC obtained. He will be given metolazone 2.5 mg for gentle diuresis along with the Torsemide until the transplant boat repairer returns my call this evening. Dr. Prajapati notified and will see patient tomorrow. Assessment & Plan (12/25/2023 8:02 AM CDT): Stable. Renal function has been stable on current dose of torsemide. Assessment & Plan (07/04/2023 8:14 PM EXTENDER): Renal function has been stable on current dose of torsemide. Assessment & Plan (07/01/2023 3:45 PM EXTENDER): Continue current plans Pancreas Disease 06/15/2022 Overview (07/04/2023): 08/12/2022 CT Abdomen Pelvis without IV Contrast [...] lesions, pancreatic protocol MRI recommended. 5. Cholelithiasis. Assessment & Plan (02/16/2024 5:20 PM CDT): Background pancreatic fatty atrophy with multilobular low-density pancreatic lesions, pancreatic Assessment & Plan (07/11/2023 3:29 PM EXTENDER): He needs follow up with his PCP after discharge. Assessment & Plan (07/04/2023 7:58 PM EXTENDER): Lesions noted on CT scan July 2022. Pancreas MRI recommended. It is unclear whether he has had follow-up regarding this. Assessment & Plan (07/01/2023 2:30 PM EXTENDER): No recent scans. He has a care conference scheduled next week. We will need to find out what he would like for follow up for his plan of care regarding the pancreas and lung nodules. 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 There are small superficial open areas. Wound beds are clean and pink. No drainage noted. Assessment & Plan (07/11/2023 3:17 PM EXTENDER): SensaCare 2 cream is applied several times a day Assessment & Plan (07/04/2023 7:20 PM EXTENDER): Wound care consists of cleansing b.i.d. and as needed after bowel movements. Apply simethicone cream twice daily and PRN. Assessment & Plan (07/01/2023 2:00 PM EXTENDER): Wounds will be cleansed with water and dried bid and prn. Dimethicone cream will be applied bid and prn Morbid Obesity 06/16/2016 Overview (01/22/2024): BMI Readings from Last 1 Encounters: 01/17/24 37.97 kg/m?? Assessment & Plan (01/22/2024 9:01 AM CDT): This is clinically significant due to increased nursing cares, use of resources, and specialty equipment. Assessment & Plan (01/08/2024 3:21 PM CDT): This is clinically significant due to increased nursing cares, use of resources, and specialty equipment. Assessment & Plan (12/25/2023 8:14 AM CDT): Maintain good nutrition for healing and health Assessment & Plan (07/11/2023 3:31 PM EXTENDER): Maintain good nutrition for healing and health Depression Major Recurrent Moderate 01/28/2015 Overview (01/08/2024): On escitalopram Assessment & Plan (03/07/2024 9:17 PM CDT): Patient is a 90 excited mood due to discharging back home to his significant other. Assessment & Plan (02/16/2024 5:16 PM CDT): director construction services to do PHQ9 . director construction services report the he told therapy that he would kill himself if had a gun. Therapy visited him again to ask him to talk about what he meant. He told them he was ok and there is nothing to be concerned about. Assessment & Plan (01/22/2024 8:58 AM CDT): Patient verbalized doing good and getting better. We will continue escitalopram. Assessment & Plan (12/25/2023 8:04 AM CDT): Patient verbalized am good and getting better. We will continue escitalopram. Assessment & Plan (07/04/2023 8:26 PM EXTENDER): On escitalopram. Most recent PHQ-9 0. 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 Assessment & Plan (03/07/2024 9:23 PM CDT): He will need to keep follow up appointments with his transplant team. Assessment & Plan (07/11/2023 3:34 PM EXTENDER): He will need to keep any follow up appointments with his transplant team Assessment & Plan (07/01/2023 3:31 PM EXTENDER): Extra precautions for respiratory viruses. Transplant Renal 02/02/2014 Overview (07/04/2023): Renal transplant 02/04/2014 to address end-stage renal disease on dialysis Follows with [facility]. Assessment & Plan (02/16/2024 5:19 PM CDT): His renal function is checked twice a week. Creat was 3.45 on 02/13/24. Assessment & Plan (01/22/2024 9:02 AM CDT): He is currently not on dialysis. Shunt right arm. Elevated creat. Assessment & Plan (01/04/2024 5:02 PM CDT): He is currently not on dialysis. Shunt right arm. Elevated creat. CMP in AM. CBC and BNAP. I have contacted Yudi in Transplant. She gave me the number of the Nephrology Transplant provider technical operations specialist. I will discuss diuresis with them. Assessment & Plan (12/25/2023 8:15 AM CDT): He follows with renal transplant Service at the [facility]. On tacrolimus and mycophenolate. Assessment & Plan (07/11/2023 3:16 PM EXTENDER): He follows with renal transplant Service at the [facility]. On tacrolimus and mycophenolate. Assessment & Plan (07/04/2023 7:18 PM EXTENDER): Follows with renal transplant Service at the [facility] Emergency. On tacrolimus and mycophenolate. Assessment & Plan (07/01/2023 3:20 PM EXTENDER): [facility] [address] [place] [address] Gretta Peacock, firebrick and refractory tile repairerPiece Goods Packer. 06/27/2023 TACROLIMUS 4.5 DATE OF LAST DOSE,TACROLIMUS 06/26/2023 TIME OF LAST DOSE,TACROLIMUS 5:49 PM Hypertension Secondary To Other Renal Disorders 12/02/2011 Overview (12/25/2023): Treatment: Amlodipine, torsemide and carvedilol Goal: 110-130 Assessment & Plan (03/07/2024 9:22 PM CDT): Images from the original note were not included. Blood pressure fluctuates with recent numbers much better. We will have PCP to follow-up on elevated blood pressure. Assessment & Plan (01/22/2024 8:59 AM CDT): Blood pressure normotensive. Continue care plan. Assessment & Plan (12/25/2023 8:10 AM CDT): Images from the original note were not included. Blood pressure normotensive. Continue care plan. Assessment & Plan (07/11/2023 3:35 PM EXTENDER): Continue current antihypertensive medications Polyneuropathy 12/02/2011 Overview (07/04/2023): Diabetic polyneuropathy on pregabalin to control symptoms. Assessment & Plan (03/07/2024 9:25 PM CDT): Continue pregabalin Assessment & Plan (02/16/2024 5:21 PM CDT): Continue pregabalin Assessment & Plan (07/11/2023 3:28 PM EXTENDER): Continue lyrica Deficiency Vitamin D 11/20/2011 Hyperlipidemia 11/14/2010 Overview (01/08/2024): On rosuvastatin in the setting of diabetes. 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 Most recent GFR 28. Follows with renal transplant at [facility]. Lab Results Component Value Date CREATININE 3.72 (H) 02/16/2024 Assessment & Plan (03/07/2024 9:14 PM CDT): He adamantly declined consideration to dialysis while was hospitalized. I discussed this with him again and he continues to be adamant that he would never want dialysis. Assessment & Plan (01/24/2024 7:30 PM CDT): He adamantly declined consideration to dialysis while was hospitalized. I discussed this with him again and he continues to be adamant that he would never want dialysis. Assessment & Plan (01/22/2024 8:56 AM CDT): Continue to be followed up at [facility]. Assessment & Plan (12/25/2023 8:03 AM CDT): Continue to be followed up at [facility]. Anemia Iron Deficiency 08/19/2009 Overview (01/22/2024): Lab Results Component Value Date WBC 3.1 (L) 01/17/2024 HGB 8.8 (L) 01/17/2024 HCT 29.6 (L) 01/17/2024 MCV 83 01/17/2024 PLT 94 (L) 01/17/2024 Assessment & Plan (03/07/2024 9:10 PM CDT): Asymptomatic. We will have PCP to follow-up. Assessment & Plan (01/22/2024 8:46 AM CDT): Asymptomatic. Assessment & Plan (12/25/2023 7:58 AM CDT): Asymptomatic. We will rechecked CBC next week. 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 Ambulate with left lower extremity with walker. Assessment & Plan (02/16/2024 5:00 PM CDT): Prosthesis fits well. Stump clean Assessment & Plan (01/22/2024 8:45 AM CDT): No edema noted. Stump sleeve in place. Assessment & Plan (01/04/2024 5:06 PM CDT): No edema noted. Stump sleeve in place. Assessment & Plan (12/25/2023 7:58 AM CDT): Left BKA intact with prosthetic in place. Continue care plan Assessment & Plan (07/11/2023 3:40 PM EXTENDER): He will follow up with [facility] for new shoes Assessment & Plan (07/01/2023 3:44 PM EXTENDER): He has a prosthesis, he needs to get new shoes. Resolved Problems Problem Noted Date Diagnosed Date Resolved Date Long Term Stay Certification Exam 12/23/2023 02/16/2024 Overview (12/23/2023): Short-term stay Assessment & Plan (01/22/2024 9:01 AM CDT): Patient remains appropriate SNF resident. Order summary paperwork signed following our visit, this included review of medications and orders. Current comorbidities, ADL need/level of debility requires skilled care/therapy. Medications and labs all reviewed and appropriate related to comorbidities, unless otherwise indicated. Physician order sheet signed. Continue PT/OT therapy, nutrition intervention, skin protection, and fall prevention. Assessment & Plan (12/23/2023 1:34 PM CDT): Patient remains appropriate SNF resident. Order summary paperwork signed following our visit, this included review of medications and orders. Current comorbidities, ADL need/level of debility requires skilled care/therapy. Medications and labs all reviewed and appropriate related to comorbidities, unless otherwise indicated. Physician order sheet signed. Continue PT/OT therapy, nutrition intervention, skin protection, and fall prevention. Anemia Of Chronic Renal Disease 07/04/2023 01/22/2024 Assessment & Plan (01/08/2024 3:25 PM CDT): Most recent hemoglobin 9.2 on 12/14/2023. Assessment & Plan (07/04/2023 8:16 PM EXTENDER): Most recent hemoglobin 11.6. Bradycardia 07/04/2023 01/22/2024 Overview (07/04/2023): Hospitalized for symptomatic bradycardia 06/22 to 06/24/2023. Carvedilol transitioned to nifedipine. Assessment & Plan (12/25/2023 8:02 AM CDT): Bradycardia in the 50s. Nursing will continue to monitor Cataract 09/22/2022 07/01/2023 Hypersomnia 08/12/2022 07/01/2023 Major Depressive Disorder Si ngle Episode Unspecified 08/12/2022 01/22/2024 Overview (07/01/2023): Stable on Lexapro Assessment & Plan (12/25/2023 8:14 AM CDT): Verbalized good mood. 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 He had been on Ambien a few times a week at home. The Ambien was ordered upon admit. Ambien was discontinued.It is an inappropriate medication for people 65 and older. It can cause vivid dreams and sleep walking. Nursing will monitor his O2 sats during the night and apply oxygen per NC per standing orders if sats go below 90 %\. Charcots Joint Left Ankle And Foot 07/16/2022 07/01/2023 Malignant Neoplasm Of Pancreatic Duct 07/16/2022 07/01/2023 Diabetes Mellitus Type 1 Without Complication 06/15/2007/01/2023 Pneumonia Due To COVID-19 06/15/2022 Failure Renal Acute (Acute Kidney Injury) 01/11/2022 07/01/2023 Urinary Tract Infection Site Not Specified 01/11/2022 07/11/2023 Overview (07/01/2023): He is currently receiving Rocephin 1 GM per PICC in Left arm Assessment & Plan (07/01/2023 1:56 PM EXTENDER): He is tolerating the medication well. Malignant Neoplasm Of Skin 03/24/2021 1 08/31/2022 Abscess Foot Right 09/18/2020 Diabetes Mellitus Type 2 Wit h Other Skin Complication 09/18/2020 07/01/2023 Infection Bacterial 09/17/2020 07/11/20 Overview (07/01/2023): UTI on IV rocephin Assessment & Plan (07/01/2023 3:30 PM EXTENDER): He will complete the course of rocephin. cefTRIAXone (ROCEPHIN) 1 gram injection Indications: Urinary tract infection without hematuria, site unspecified Inject 1,000 mg intravenous every 24 hours for 4 days. 4 g 0 06/29/2023 07/03/2023 Syncope And Collapse 03/08/2019 023 Overview (07/01/2023): Fall at home related to septic UTI Assessment & Plan (07/01/2023 3:23 PM EXTENDER): He walks with a walker. He has left BKA left side with prosthesis and built up shoes bilaterally Benign Neoplasm Colon 01/01/20142022 Diabetes Mellitus Type 2 12/02/2011 Diabetes Mellitus Type 2 Wit h Unspecified Diabetic Retinopathy Without Macular Edema 12/02/2011 07/11/2023 Overview (07/04/2023): Insulin dependent Lab Results Component Value Date HGBA1C 9.1 (H) 06/23/2023 Assessment & Plan (07/04/2023 8:12 PM EXTENDER): He is currently on insulin glargine and sliding scale insulin at mealtime. He has had recent adjustments in attempt to improve control. Assessment & Plan (07/01/2023 3:38 PM EXTENDER): Blood sugars elevated due to diet. He stopped at [employer] on his way to the custodial from [facility]. Malaise 12/02/2011 07/01/2023 Overview (08/12/2022): Problem list name updated by automated process. 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 12/17/2005 07/11/2023 Overview (07/01/2023): LBKA with prosthesis Osteomyelitis Ankle Foot Acute 12/14/2005 07/01/2023 Overview (08/12/2022): L foot--left BKA on 12/17/05 Unspecified Abnormalities Of Gait And Mobility 12/14/2005 07/01/2023 Hypertension 07/14/2005 07/01/2023 Immunizations Name Administration Dates Next Due HepB, Unspecified 02/08/2012 Influenza (IM) Preservative Free 05/12/2011,04/23 Influenza TIV (IM) 06/26/2018, 7,05/30/2017,2012,06/05/2013,05/17/2012,05/12/2011,0 05/15/2010,05/20/2009 Influenza high dose QV(65 ye ars or older) (PF) 07/01/2022,09/22/2021,07/30/2021 Influenza, Seasonal, Injectable 07/12/20 17,06/05/2013,05/17/2012,2008 Influenza, Unspecified 05/29/2020,05/20/2009 PCV13 03/17/2016 PPSV23 05/05/2011 SARS-COV-2 (COVID-19) - GLEN CARMICHAEL ([facility])(Discontinued) 09/22/2021 Td (Adult), adsorbed 01/12/2019 Td Preservative [...] Tobacco: Never Tobacco Cessation:Counseling Given: Not Answered Dental Answer Date Recorded Dental: Regular Dentist Unknown 03/05/20 Sex and Gender Information Value Date Recorded Sex Assigned at Not on file Gender Identity Not on file Sexual Orientation Not on file Last Filed Vital Signs Vital Sign Reading Time Taken Comments Blood Pressure 144/71 03/06/2024 9:03 PM CDT Pulse 75 03/06/2024 9:03 PM CDT Temperature 36.4 ??C (97.5 ??F) 03/06/2024 9:03 PM CD T Respiratory Rate 16 03/06/2024 9:03 PM CDT Oxygen Saturation 96% 03/06/2024 9:03 PM CDT ra Inhaled Oxygen Concentration - - Weight 131 kg (288 lb 9.6 oz) 03/06/2024 9:03 PM CDT Height 182.9 cm (6') 07/04/2023 6:11 PM EXTENDER Body Mass Index 39.14 07/04/2023 6:11 PM EXTENDER Plan of Treatment Upcoming Encounters Date Type Department Care Team (Late st Contact Info) Description 03/20/2024 9:00 AM CDT Appointment Department of Laboratory Medicine in [place], [place] [address] [phone] Aubrey Little M.D. [address] [place] [phone] 03/20/2024 10:00 AM CDT Comprehensive Visit Department of Cardiovascular Diseases in [place], [place] [address] [place] [address] Aubrey Little M.D. [address] [place] [phone] 04/13/2024 11:00 AM CDT Comprehensive Visit Department of Neurology in [place], [place] [address] [place] [phone] Florin Montes M.D. [address] [place] [address] Procedures Procedure Name Priority Date/Time Associated Diagnosis Comments US SCROTUM WITH DOPPLER RAD - Routine (most inpatients and all outpatients) 01/23/2024 11:46 AM CDT Injury Scrotum Subsequent DX CHEST AP OR PA AND LATERAL 2 VIEWS RAD - Semiurgent (Fast; most ED patients; some inpatients) 01/05/2024 10:[address] ABDOMEN PELVIS WITHOUT IV CONTRAST RAD - Semiurgent (Fast; most ED patients; some inpatients) 08/12/2022 3:50 PM EXTENDER from Last 3 Months or Most Recently Relevant to Health Maintenance Results * US Scrotum with Doppler (01/23/2024 11:46 AM CDT) Anatomical Region Laterality Modality Testes, Ultrasound RST LOS, Ultrasound ARZ LOS, Ultrasound FLA LOS N/A Ultrasound Impressions 01/23/2024 12:05 PM CDT 1. Heterogeneous testicular echotexture bilaterally without focal solid mass. 2. No testicular torsion. 3. Small bilateral hydroceles and left varicocele. Narrative 01/23/2024 12:05 PM CDT EXAM: US SCROTUM WITH DOPPLER Exam performed with color and spectral Doppler analysis. COMPARISON: None FINDINGS: Right testicle: Heterogeneous echotexture. Normal size and blood flow pattern. Right testis volume: 15.6 ml Epididymis: Normal. No mass or hyperemia. Other: Small hydrocele. No varicocele. Left testicle: Heterogeneous echotexture. Normal size and blood flow pattern. Left testis volume: 10.1 ml Epididymis: Normal. No mass or hyperemia. Other: Small hydrocele. Small varicocele. Procedure Note Sloan Tripp M.D. - 01/23/2024 EXAM: US SCROTUM WITH DOPPLER Exam performed with color and spectral Doppler analysis. COMPARISON: None FINDINGS: Right testicle: Heterogeneous echotexture. Normal size and blood flowpattern. Right testis volume: 15.6 ml Epididymis: Normal. No mass or hyperemia. Other: Small hydrocele. No varicocele. Left testicle: Heterogeneous echotexture. Normal size and blood flowpattern. Left testis volume: 10.1 ml Epididymis: Normal. No mass or hyperemia. Other: Small hydrocele. Small varicocele. IMPRESSION: 1. Heterogeneous testicular echotexture bilaterally without focal solidmass. 2. No testicular torsion. 3. Small bilateral hydroceles and left varicocele. Arlette Nath APRN, C.N.P. IMG US PROCEDU RES * DX Chest AP or PA and Lateral 2 Views (01/05/2024 10:00 AM CDT) Anatomical Region Laterality Modality Chest, Thoracic RST LOS, Tho racic ARZ LOS, Thoracic FLA LOS N/A Digital Radiography Impressions 01/05/2024 10:04 AM CDT Comparison 06/18/22. Stable cardiac enlargement. Diffuse interstitial and groundglass opacities are compatible with pulmonary edema. Central and bibasilar atelectasis. Narrative 01/05/2024 10:04 AM CDT EXAM: DX CHEST AP OR PA AND LATERAL 2 VIEWS Procedure Note Momo Cunha M.D. - 01/05/2024 EXAM: DX CHEST AP OR PA AND LATERAL 2 VIEWS IMPRESSION: Comparison 06/18/22. Stable cardiac enlargement. Diffuse interstitial andgroundglass opacities are compatible with pulmonary edema. Central andbibasilar atelectasis. John MODI DIAGNOSTIC IMAGI NG PROCEDURES * CT Abdomen Pelvis without IV Contrast (08/12/2022 3:50 PM EXTENDER) Anatomical Region Laterality Modality Abdomen, Pelvis, Abdominal R ST LOS, Abdominal ARZ LOS, Abdominal FLA LOS N/A Computed Tomography 08/12/2022 3:57 PM EXTENDER Impressions 08/12/2022 4:27 PM EXTENDER 1. ??Right lower quadrant renal transplant with collecting system gas. Peritransplant and urinary bladder bladder mural edema, correlate with urinalysis for cystitis and emphysematous pyelitis and/or pyelonephritis. 2. ??Mild ill-defined L2-L3 ventral paraspinous induration, no overt endplate destruction. Suspect infectious/inflammatory, correlate with biomarkers and MRI to exclude early discitis given new back pain. 3. ??Suspect lung base fibrosis with 5mm lung base nodules, see follow-up recommendations below. 4. ??Background pancreatic fatty atrophy with multilobular low-density pancreatic lesions, pancreatic protocol MRI recommended. 5. ??Cholelithiasis. GUIDELINES FOR FOLLOW-UP of newly detected solid nodules incidentally detected on CT in persons 35 years or older. (2017 revision) LOW-RISK PATIENT (Minimal or absent history or smoking or of other known risk factors) For single nodule, size: <6mm- No routine follow-up required 6-8mm- CT at 6-12 months; then consider CT at 18-24 months, if no change >8mm- Consider Pulmonary Medicine consultation for management, or follow-up with CT at 3 months For multiple nodules, size of largest nodule: <6mm- No routine follow-up required 6mm or>- CT at 3-6 months, then consider CT at 18-24 months HIGH-RISK PATIENT (History of smoking or of other known risk factors) For single nodule, size: <6mm- Optional CT at 12 months*; If unchanged, no further follow-up required 6-8mm- CT at 6-12 months; then CT at 18-24 months, if no change >8mm- Consider Pulmonary Medicine consultation for management, or follow-up with CT at 3 months For multiple nodules, size of largest nodule: <6mm- Optional CT at 12 months*; If unchanged, no further follow-up required 6mm or>- CT at 3-6 months, then consider CT at 18-24 months (Nodule size is the average of length and width.) *Nodules <6mm do not require routine follow-up, but certain patients at high risk with suspicious nodule morphology, upper lobe location, or both may warrant 12-month follow-up. Narrative 08/12/2022 4:27 PM EXTENDER EXAM: CT ABDOMEN PELVIS WITHOUT IV CONTRAST COMPARISON: None FINDINGS: Probable lung base fibrosis with subpleural reticulation. 5mm subpleural right middle lobe and lower lobe nodules. Coronary artery calcifications. Antecedent granulomatous disease. Abnormal hepatic contour. Stone laden gallbladder. No biliary ductal dilation. Mild splenomegaly. Background pancreatic fatty infiltrate. Multifocal nodular suspect cystic pancreatic lesions, dominant 3cm bilobed or adjacent cystic lesion(s) within the pancreatic head. No pancreatic ductal dilation. Marked bilateral standing rock renal atrophy. Probable bilateral renal hemorrhagic cysts and exophytic larger simple right lower pole cysts. Nonobstructing left renal calculi. Right lower quadrant renal transplant. Large collecting system gas. Ill-defined peritransplant and hilar edema with indurated soft tissues adjacent to transplant ureter. Markedly wall thickened urinary bladder with perivesicular edema, indwelling Gibbs catheter with intravesicular gas. Right lower quadrant subcutaneous scarring. Mild ill-defined anterior L2-L3 level paraspinous inflammatory change without overt destructive endplate process. Advanced lumbar spondylosis and multilevel large Schmorl's nodes. Procedure Note Beny Arguello M.D. - 08/12/2022 EXAM: CT ABDOMEN PELVIS WITHOUT IV CONTRAST COMPARISON: None FINDINGS: Probable lung base fibrosis with subpleural reticulation. 5mm subpleuralright middle lobe and lower lobe nodules. Coronary artery calcifications. Antecedent granulomatousdisease. Abnormal hepatic contour. Stone laden gallbladder. No biliary ductaldilation. Mild splenomegaly. Background pancreatic fatty infiltrate. Multifocal nodular suspect cysticpancreatic lesions, dominant 3cm bilobed or adjacent cystic lesion(s) within the pancreatichead. No pancreatic ductal dilation. Marked bilateral standing rock renal atrophy. Probable bilateral renalhemorrhagic cysts and exophytic larger simple right lower pole cysts. Nonobstructing left renal calculi.Right lower quadrant renal transplant. Large collecting system gas. Ill-defined peritransplant andhilar edema with indurated soft tissues adjacent to transplant ureter. Markedly wall thickenedurinary bladder with perivesicular edema, indwelling Gibbs catheter with intravesicular gas. Right lower quadrant subcutaneous scarring. Mild ill-defined anteriorL2-L3 level paraspinous inflammatory change without overt destructive endplate process. Advancedlumbar spondylosis and multilevel large Schmorl's nodes. IMPRESSION: 1. Right lower quadrant renal transplant with collecting system gas.Peritransplant and urinary bladder bladder mural edema, correlate with urinalysis for cystitis andemphysematous pyelitis and/or pyelonephritis. 2. Mild ill-defined L2-L3 ventral paraspinous induration, no overtendplate destruction. Suspect infectious/inflammatory, correlate with biomarkers and MRI to excludeearly discitis given new back pain. 3. Suspect lung base fibrosis with 5mm lung base nodules, see follow-uprecommendations below. 4. Background pancreatic fatty atrophy with multilobular low-densitypancreatic lesions, pancreatic protocol MRI recommended. 5. Cholelithiasis. GUIDELINES FOR FOLLOW-UP of newly detected solid nodules incidentallydetected on CT in persons 35 years or older. (2017 revision) LOW-RISK PATIENT (Minimal or absent history or smoking or of other knownrisk factors) For single nodule, size: <6mm- No routine follow-up required 6-8mm- CT at 6-12 months; then consider CT at 18-24 months, if no change >8mm- Consider Pulmonary Medicine consultation for management, orfollow-up with CT at 3 months For multiple nodules, size of largest nodule: <6mm- No routine follow-up required 6mm or>- CT at 3-6 months, then consider CT at 18-24 months HIGH-RISK PATIENT (History of smoking or of other known risk factors) For single nodule, size: <6mm- Optional CT at 12 months*; If unchanged, no further follow-uprequired 6-8mm- CT at 6-12 months; then CT at 18-24 months, if no change >8mm- Consider Pulmonary Medicine consultation for management, orfollow-up with CT at 3 months For multiple nodules, size of largest nodule: <6mm- Optional CT at 12 months*; If unchanged, no further follow-uprequired 6mm or>- CT at 3-6 months, then consider CT at 18-24 months (Nodule size is the average of length and width.) *Nodules <6mm do not require routine follow-up, but certain patients athigh risk with suspicious nodule morphology, upper lobe location, or both may warrant [id number]. Mary Jane Rothman P.A.-C. 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
--- OUTSIDE RECORDS SUMMARY | 2024-03-15 12:55 | XMS_ITS ---
Author Organization [facility] Address [address] [place] [address] Care Team Providers Care Carrier Blower Name Role Phone Unavailable Unavailable Unavailable Surgery Details Not on file Complications Check Surgery Details section. Procedure Estimated Blood Loss Check Surgery Details section. Procedure Findings Check Surgery Details section. Procedure Specimens Taken Check Surgery Details section.
--- OUTSIDE RECORDS SUMMARY | 2024-03-15 12:55 | XMS_ITS | Clinical Summary ---
Author Organization [facility] Address [address] [place] [address] Care Team Providers Care Workforce Planner Name Role Phone Elsewhere, Pcp Primary Care Provider Unavailabl e Source Comments Patient records contain information from all sites at [facility]. For routine questions regarding patient records, call [phone] during business hours, M-F 8:00 AM - 5:00 PM Central Time. Record requests for emergency care only can be directed to [phone] at any time.[facility] Allergies Active Allergy Reactions Criticality Noted [...] mouth every 6 (six) hours. 240 tablet 4 04/06/20 24 Active albuterol 90 mcg/actuation inhaler Inhale 2 puffs every 6 (six) hours as needed for shortness of breath or wheezing. 6.7 g 4 04/06/20 24 Active escitalopram (Lexapro) 20 mg tablet Take 1 tablet (20 mg total) by mouth daily. 30 tablet 4 04/06/20 24 Active hydrALAZINE (Apresoline) 10 mg tablet Take 4 tablets (40 mg total) by mouth every 8 (eight) hours. 360 tablet 04/06/20 24 Active insulin aspart U-100 (NovoLOG FlexPen) 100 [...] mcg total) by mouth daily. 30 tablet 04/06/20 24 Active melatonin 3 mg tablet Take 1 tablet (3 mg total) by mouth at bedtime. 30 tablet 04/06/20 24 Active miconazole 2 % powderIndicatio ns:Rash Apply 1 Application topically 3 (three) times a day. Apply to groin rash area 3 times daily. 43 g 04/06/20 24 Active pantoprazole (Protonix) 40 mg EC tablet Take 1 tablet (40 mg total) by mouth daily before morning meal. 30 tablet 04/06/20 24 Active polyethylene glycol (Miralax) 17 gram/dose oral powder Take 17 g by mouth daily. Dissolve each 17 g dose in 240 mL (8 ounces) of beverage. 100 g Active pregabalin (Lyrica) 150 mg capsule Take 1 capsule (150 mg total) by mouth at bedtime. 30 capsule 4 04/06/20 24 Active rosuvastatin (Crestor) 10 mg tablet Take 1 tablet (10 mg total) by mouth at bedtime. 30 tablet 04/06/20 24 Active sennosides (senna) 8.6 mg [...] 2 (two) times a day. 60 capsule 3 03/07/20 Discontinued(Reo rder) melatonin 3 mg tablet Take 1 tablet (3 mg total) by mouth at bedtime. 30 tablet 4 03/07/20 Discontinued(Reo rder) sennosides (senna) 8.6 mg tablet Take 2 tablets (17.2 mg total) by mouth at bedtime. 60 tablet 4 03/07/20 Discontinued(Reo rder) carvediloL (COREG) 6.25 mg tablet Take 6.25 mg by mouth 2 (two) times a day with meals. 4 03/07/20 Discontinued ipratropium-alb uteroL (DUONEB) 0.5-2.5 mg/3 [...] to groin rash area 3 times daily. 03/07/20 Discontinued(Reo rder) pantoprazole (PROTONIX) 40 mg EC tablet Take 1 tablet (40 mg total) by mouth every morning before breakfast. 03/07/20 Discontinued(Reo rder) levothyroxine (SYNTHROID, LEVOTHROID) 100 mcg tablet Take 1 tablet (100 mcg total) by mouth daily. 4 03/07/20 Discontinued(Reo rder) acetaminophen (TYLENOL) 500 mg tablet Take 1,000 mg by mouth every 6 (six) hours. 03/07/20 Discontinued(Reo rder) albuterol 90 mcg/actuation inhaler Inhale 2 puffs every 6 (six) hours as needed for shortness of breath or wheezing. 4 07/17/20 24 Discontinued(Reo rder) polyethylene glycol (MIRALAX) 17 gram/dose oral powder Take 17 g by mouth daily. Dissolve each 17 g dose in 240 mL (8 ounces) of beverage. 03/07/20 Discontinued(Reo rder) mycophenolate (CELLCEPT) 250 mg capsule Take 2 capsules (500 mg total) by mouth every 12 (twelve) hours. 03/07/20 Discontinued(Reo rder) pregabalin (LYRICA) 150 mg capsule Take 1 capsule (150 mg total) by mouth at bedtime. 30 capsule 4 02/17/20 Discontinued(Reo rder) hydrALAZINE (APRESOLINE) 10 mg tablet [...] Pharmacy select brand per patient insurance/prefer ence. 03/07/20 Discontinued insulin glargine-yfgn (SEMGLEE) 100 unit/mL (3 mL) injection Inject 20 Units under the skin at bedtime. 03/07/20 Discontinued(Reo rder) metOLazone (Zaroxolyn) 2.5 mg tablet Take 1 tablet (2.5 mg total) by mouth every other day. 30 tablet 5 4 03/07/20 Discontinued torsemide 40 mg tabletIndicatio ns:peripheral edema due to chronic heart failure Take 40 mg by mouth 2 (two) times a day Indications: accumulation of fluid resulting from chronic heart failure. 03/07/20 Discontinued(Reo rder) pregabalin (Lyrica) 150 mg capsule [...] Active Problems Problem Noted Date Diagnosed Date Long-Term 30 Day Certification Exam 4 Overview (02/16/2024): [...] his girlfriend Tete to come to the residential to be a part of a discussion [...] Other Retention Of Urine 01/24/2024 Overview (01/24/2024): Gibbs catheter placed during hospitalization December 2023. Assessment [...] last visit with Neurology on 05/20/[address] [facility]. Mild tremor noticed during this visit but not impacting his ADLs. We will see if we can getting to see the neurology. Chronic Respiratory Failure 01/08/2024 Overview (01/08/2024): New chronic oxygen requirements at 3 L per nasal cannula since November 2023. [place] multifactorial including acute on chronic congestive heart [...] interactions, and continued indication/appropriateness. Reduction as able. Fpc Use Of Insulin Active 07/04/2023 Overview (07/04/2023): He uses long and short-acting insulins. Assessment & Plan (01/22/2024 9:00 AM CDT): Continue insulin for blood sugar control Assessment & Plan (12/25/2023 8:14 AM CDT): Continue insulin for blood sugar control Assessment & Plan (07/11/2023 3:32 PM INFORMATION CLERK): He will need diabetic follow up with [...] treat. Assessment & Plan (07/11/2023 3:27 PM INFORMATION CLERK): His strength has improved with therapy. He [...] or allowed practitioner. The patient had a [id number] encounter with a physician or an allowed [...] 07/11/23 Assessment & Plan (07/04/2023 7:15 PM INFORMATION CLERK): This is expected to improve with continued resolution of acute illness and with therapies. Cystitis Recurrent 07/04/2023 Overview (07/04/2023): Multiple recent urine infections with some leading to hospitalization. Urology evaluation 10/18/2022 with cystoscopy suggested urethral stricture as possible contributing factor. Assessment & Plan (07/04/2023 8:13 PM INFORMATION CLERK): He has completed a course of IV ceftriaxone and is awaiting clearance from Infectious Disease to pull PICC line. Fpc (Current) Anticoagulant Treatment 06/22 Overview (07/04/2023): On apixaban in the setting of atrial fibrillation. Assessment & Plan (01/22/2024 9:00 AM CDT): Continue apixaban Assessment & Plan (12/25/2023 8:13 AM CDT): Continue apixaban Assessment & Plan (07/04/2023 8:25 PM INFORMATION CLERK): He saw Cardiology 06/23/2023 at which time [...] weeks Assessment & Plan (07/04/2023 8:04 PM INFORMATION CLERK): Lab Results Component Value Date TSH 4.61 01/14/2023 Atrial Fibrillation Permanent 07/04/2023 Overview (03/07/2024): Has had difficulty with bradycardia and carvedilol has been discontinued. 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 Returned to urology clinic in 6 months for uroflow and residual Returned to urology clinic sooner if recurrent infections Assessment & Plan (01/08/2024 3:51 PM CDT): Has had difficulty with urine retention during recent hospitalizations. This seems to improve with improvement in general status. For urine retention he is on tamsulosin. Assessment & Plan (07/11/2023 3:29 PM INFORMATION CLERK): Good hygiene and follow up with PCP and urology Assessment & Plan (07/04/2023 8:03 PM INFORMATION CLERK): He is due for urology follow-up, especially [...] 11/19/2023 Assessment & Plan (07/11/2023 3:37 PM INFORMATION CLERK): Levemir up to 42 units with Humalog [...] plan Assessment & Plan (07/11/2023 3:36 PM INFORMATION CLERK): Asymptomatic with medication Pressure Injury (Ulcer) Of Right Ankle Stage 2 1 09/03/2022 Overview (07/04/2023): Ulceration right lateral lower leg felt secondary to pressure from high top shoe. Assessment & Plan (07/11/2023 3:22 PM INFORMATION CLERK): Wound has slough with granulating buds. There was MRSA in the wound. He has completed a course of doxycycline today. Silverstat will be applied to the wound daily after cleaning with saline and drying with a gauze.a gauze will be applied and secured with a rolled gauze. Assessment & Plan (07/04/2023 8:30 PM INFORMATION CLERK): Recent culture grew MRSA. He was started [...] admission Assessment & Plan (07/11/2023 3:32 PM INFORMATION CLERK): He is sleeping well with the melatonin Assessment & Plan (07/04/2023 8:48 PM INFORMATION CLERK): He is currently on zolpidem. Previous intent [...] admission. Assessment & Plan (07/11/2023 3:38 PM INFORMATION CLERK): He was treated for MRSA in the wound. Daily dressing changes. Assessment & Plan (07/01/2023 3:50 PM INFORMATION CLERK): Wound measures 1,.4 cm x 1 cm and 0,2 cm deep. Wound has inner [place] of slough with erythema in the periwound carmona. Wound was cleansed with saline and dried Wound culture obtained. Satish will be applied to wound bed, covered [...] escitalopram Assessment & Plan (07/01/2023 3:42 PM INFORMATION CLERK): Nursing to monitor anxiety Apnea Sleep Obstructive [...] use. Assessment & Plan (07/01/2023 3:41 PM INFORMATION CLERK): Nursing will monitor O2 Sats and apply [...] Intact Assessment & Plan (07/11/2023 3:37 PM INFORMATION CLERK): Lump under skin. Assessment & Plan (07/01/2023 3:35 PM INFORMATION CLERK): Fistula not used since renal transplant Malignant [...] He is slowly gaining weight in the residential. He is on continuous oxygen. He has agreed to see [facility]. A referral will be sent. Torsemide [...] habitus is prohibitive for portable xray in residential. Gibbs catheter will be inserted tonight. UA/UC obtained. He will be given metolazone 2.5 mg for gentle diuresis along with the Torsemide until the transplant telesales specialist returns my call this evening. Dr. Prajapati notified and will see patient tomorrow. Assessment & Plan (12/25/2023 8:02 AM CDT): Stable. Renal function has been stable on current dose of torsemide. Assessment & Plan (07/04/2023 8:14 PM INFORMATION CLERK): Renal function has been stable on current dose of torsemide. Assessment & Plan (07/01/2023 3:45 PM INFORMATION CLERK): Continue current plans Pancreas Disease 06/15/2022 Overview [...] pancreatic Assessment & Plan (07/11/2023 3:29 PM INFORMATION CLERK): He needs follow up with his PCP after discharge. Assessment & Plan (07/04/2023 7:58 PM INFORMATION CLERK): Lesions noted on CT scan July 2022. Pancreas MRI recommended. It is unclear whether he has had follow-up regarding this. Assessment & Plan (07/01/2023 2:30 PM INFORMATION CLERK): No recent scans. He has a care [...] noted. Assessment & Plan (07/11/2023 3:17 PM INFORMATION CLERK): SensaCare 2 cream is applied several times a day Assessment & Plan (07/04/2023 7:20 PM INFORMATION CLERK): Wound care consists of cleansing b.i.d. and as needed after bowel movements. Apply simethicone cream twice daily and PRN. Assessment & Plan (07/01/2023 2:00 PM INFORMATION CLERK): Wounds will be cleansed with water and [...] health Assessment & Plan (07/11/2023 3:31 PM INFORMATION CLERK): Maintain good nutrition for healing and health Depression Major Recurrent Moderate 01/28/2015 Overview (01/08/2024): On escitalopram Assessment & Plan (03/07/2024 9:17 PM CDT): Patient is a 90 excited mood due to discharging back home to his significant other. Assessment & Plan (02/16/2024 5:16 PM CDT): social services designee to do PHQ9 . social services designee report the he told therapy that he [...] escitalopram. Assessment & Plan (07/04/2023 8:26 PM INFORMATION CLERK): On escitalopram. Most recent PHQ-9 0. 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 Assessment & Plan (03/07/2024 9:23 PM CDT): He will need to keep follow up appointments with his transplant team. Assessment & Plan (07/11/2023 3:34 PM INFORMATION CLERK): He will need to keep any follow up appointments with his transplant team Assessment & Plan (07/01/2023 3:31 PM INFORMATION CLERK): Extra precautions for respiratory viruses. Transplant Renal 02/02/2014 Overview (07/04/2023): Renal transplant 02/04/2014 to address end-stage renal disease on dialysis Follows with [facility]. Assessment & Plan (02/16/2024 5:19 PM CDT): [...] the number of the Nephrology Transplant provider ventilation worker. I will discuss diuresis with them. Assessment & Plan (12/25/2023 8:15 AM CDT): He follows with renal transplant Service at the [facility]. On tacrolimus and mycophenolate. Assessment & Plan (07/11/2023 3:16 PM INFORMATION CLERK): He follows with renal transplant Service at the [facility]. On tacrolimus and mycophenolate. Assessment & Plan (07/04/2023 7:18 PM INFORMATION CLERK): Follows with renal transplant Service at the [facility]. On tacrolimus and mycophenolate. Assessment & Plan (07/01/2023 3:20 PM INFORMATION CLERK): [facility] [address] [place] [phone] Gretta Peacock, pr internPower Plant Technician. 06/27/2023 TACROLIMUS 4.5 DATE OF LAST DOSE,TACROLIMUS [...] plan. Assessment & Plan (07/11/2023 3:35 PM INFORMATION CLERK): Continue current antihypertensive medications Polyneuropathy 12/02/2011 Overview (07/04/2023): Diabetic polyneuropathy on pregabalin to control symptoms. Assessment & Plan (03/07/2024 9:25 PM CDT): Continue pregabalin Assessment & Plan (02/16/2024 5:21 PM CDT): Continue pregabalin Assessment & Plan (07/11/2023 3:28 PM INFORMATION CLERK): Continue lyrica Deficiency Vitamin D 11/20/2011 Hyperlipidemia 11/14/2010 Overview (01/08/2024): On rosuvastatin in the setting of diabetes. 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 Most recent GFR 28. Follows with renal transplant at [facility]. Lab Results Component Value Date CREATININE 3.72 [...] CDT): Continue to be followed up at [facility]. Assessment & Plan (12/25/2023 8:03 AM CDT): Continue to be followed up at [facility]. 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 Resolved Problems Problem Noted Date Diagnosed Date Resolved Date Long-Term Stay Certification Exam 12/23/2023 02/16/2024 Overview (12/23/2023): [...] 12/14/2023. Assessment & Plan (07/04/2023 8:16 PM INFORMATION CLERK): Most recent hemoglobin 11.6. Bradycardia 07/04/2023 01/22/2024 [...] lexapro Assessment & Plan (07/11/2023 3:31 PM INFORMATION CLERK): Continue lexapro Assessment & Plan (07/01/2023 3:24 PM INFORMATION CLERK): hand worker will monitor PHQ-9 Depression 08/12/2022 07/01/2023 Non-Pressure Chronic Ulcer O f Buttock With Unspecified Severity 08/12/2022 07/01/2023 Non-Pressure Chronic Ulcer O f Unspecified Part Of Left Lower Leg With Unspecified Severity 08/12/2022 07/01/2023 Other Dyspnea 08/12/2022 07/01/2023 Sleep Disorder 08/12/2022 03/07/2024 Overview (12/25/2023): CHANELL using CPAP Assessment & Plan (07/11/2023 3:16 PM INFORMATION CLERK): He sleeps in a recliner with his head more upright Assessment & Plan (07/01/2023 2:28 PM INFORMATION CLERK): Sleeps in recliner at home and now in the residential. He had been on Ambien a few [...] 07/01/2023 Diabetes Mellitus Type 1 Without Complication 06/15/20 22 07/01/2023 Pneumonia Due To COVID-19 06/15/2022 Failure Renal Acute (Acute Kidney Injury) 01/11/2022 07/01/2023 Urinary Tract Infection Site Not Specified 01/11/2022 07/11/2023 Overview (07/01/2023): He is currently receiving Rocephin 1 GM per PICC in Left arm Assessment & Plan (07/01/2023 1:56 PM INFORMATION CLERK): He is tolerating the medication well. Malignant Neoplasm Of Skin 03/24/2021 1 08/31/2022 Abscess Foot Right 09/18/2020 Diabetes Mellitus Type 2 Wit h Other Skin Complication 09/18/2020 07/01/2023 Infection Bacterial 09/17/2020 07/11/20 23 Overview (07/01/2023): UTI on IV rocephin Assessment & Plan (07/01/2023 3:30 PM INFORMATION CLERK): He will complete the course of rocephin. cefTRIAXone (ROCEPHIN) 1 gram injection Indications: Urinary tract infection without hematuria, site unspecified Inject 1,000 mg intravenous every 24 hours for 4 days. 4 g 0 06/29/2023 07/03/2023 Syncope And Collapse 03/08/2019 023 Overview (07/01/2023): Fall at home related to septic UTI Assessment & Plan (07/01/2023 3:23 PM INFORMATION CLERK): He walks with a walker. He has left BKA left side with prosthesis and built up shoes bilaterally Benign Neoplasm Colon 01/01/20142022 Diabetes Mellitus Type 2 12/02/2011 Diabetes Mellitus Type 2 Wit h Unspecified Diabetic Retinopathy Without Macular Edema 12/02/2011 07/11/2023 Overview (07/04/2023): Insulin dependent Lab Results Component Value Date HGBA1C 9.1 (H) 06/23/2023 Assessment & Plan (07/04/2023 8:12 PM INFORMATION CLERK): He is currently on insulin glargine and sliding scale insulin at mealtime. He has had recent adjustments in attempt to improve control. Assessment & Plan (07/01/2023 3:38 PM INFORMATION CLERK): Blood sugars elevated due to diet. He stopped at [employer] on his way to the residential from [facility]. Malaise 12/02/2011 07/01/2023 Overview (08/12/2022): Problem [...] Care Team Description 03/09/2024 Orders Only Division [facility], [place], [place] [address] [place] [address] Manoj Davalos APRN, C.NAlex., M.S.N. 03/09/2024 Refill Division of [facility] Internal [facility], [place], [place] [address] [place] [address] Manoj Davalos APRN, C.N.P., M.S.N. Med Refill 03/09/2024 Refill Division of [facility] Internal [facility], [place], [place] [address] [place] [address] Manoj Davalos APRN, C.N.P., M.S.N. Med Refill 03/09/2024 Orders Only Pharmacy Prior Auth RO [phone] Ruby Aguiar 03/08/2024 Clinical Communication Department of [facility] Internal Medicine in [place], [place] [address] [place] [phone] Arlette Nath APRN, C.N.P. Home Health Care 03/06/2024 10:00 AM CDT External Outreach Senior Services in [facility] [phone] Manoj Davalos APRN C.N.P., M.S.N. 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 (HCC); Anemia Iron Deficiency; Anxiety Generalized Disorder; Apnea Sleep Obstructive; Atrial Fibrillation Permanent (HCC); 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 Rate 15-29 (HCC); Chronic Respiratory Failure (HCC); Depression Major Recurrent Moderate (HCC); 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); Diabetes Mellitus Type 2 With Diabetic Neuropathy (HCC); Edema; 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HCC); Gastroesophageal Reflux Disease Without Esophagitis; Hypertension Secondary To Other Renal Disorders; Hypothyroidism On Replacement; Insomnia; Immunodeficiency Due To Conditions Classified Elsewhere ([facility]); Lesion Scrotum; Fpc (Current) Anticoagulant Treatment; Retail Analyst Use Of Insulin Active (HCC); Long-Term 30 Day Certification Exam; Polyneuropathy; Transplant Renal (HCC); Tremor; Weakness General; Rash 02/24/2024 10:30 AM CDT Internal E-Consult Department of Neurology in [place], [place] [address] [place] [address] Samir Fregoso M.D., Ph.D. Tremor (Primary Dx) 02/23/2024 Orders Only [facility] [place] [address] [place] [phone] Manoj Davalos APRN, C.N.Eugenia., M.S.N. Presyncope (Primary Dx) 02/17/2024 Orders Only [facility] [place] [address] [place] [address] Manoj Davalos APRN, C.N.Vidal, M.S.N. 02/16/2024 10:00 AM CDT External Outreach [facility] Services in [place] [address] [phone] Arlette Nath APRN C.N.P. Advanced Care Planning (Primary Dx); 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 ([facility]); Anxiety Generalized Disorder; Apnea Sleep Obstructive; Atrial Fibrillation Permanent (HCC); Hypothyroidism On Replacement; Chronic Diastolic (Congestive) Heart Failure ([facility]); Chronic Respiratory Failure (HCC); Depression Major Recurrent Moderate (HCC); 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[facility]); Gastroesophageal Reflux Disease Without Esophagitis; Hyperlipidemia; Transplant Renal ([facility]); Pancreas Disease; Paralysis Diaphragm; Polyneuropathy; Lesion Scrotum; Long-Term 30 Day Certification Exam 02/13/2024 3:00 PM CDT External Outreach [facility] in [place] [address] [phone] Arlette Nath APRN, C.N.P. Chronic Diastolic (Congestive) Heart Failure (HCC) (Primary Dx) 02/10/2024 11:09 AM CDT - 02/10/2024 1:49 PM CDT Emergency [facility] [address] [place] [phone] Hypokalemia (Primary Dx) Discharge Disposition: Home or Self Care 02/10/2024 10:00 AM CDT External Outreach [facility] in [place] [address] [phone] Manoj Davalos APRN, C.N.P., M.S.N. Hypokalemia (Primary Dx); Edema; Chronic Diastolic (Congestive) Heart Failure (HCC); 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 (HCC); Advanced Care Planning 02/09/2024 10:00 AM CDT External Outreach [facility] in [place] [address] [phone] Arlette Nath APRN, C.N.P. Spells Undifferentiated (Primary Dx); Chronic Diastolic (Congestive) Heart Failure (HCC) 02/06/2024 10:00 AM CDT External Outreach [facility] in [place] [address] [phone] Arlette Nath APRN, C.N.P. Injury Scrotum Subsequent (Primary Dx); Chronic Diastolic (Congestive) Heart Failure (HCC) 01/31/2024 Clinical Communication Department of [facility] in [place] [address] [place] [phone] Arlette Nath APRN, C.N.P. Results 01/30/2024 10:00 AM CDT External Outreach [facility] in [place] [address] [phone] Arlette Nath APRN, C.N.P. Chronic Diastolic (Congestive) Heart Failure (HCC) (Primary Dx); Injury Scrotum Subsequent 01/30/2024 Orders Only Department of Cardiovascular Diseases in [place], [place] [address] [place] [phone] Aubrey Little M.D. 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 Rate 15-29 (HCC) (Primary Dx); Chronic Diastolic (Congestive) Heart Failure (HCC); Atrial Fibrillation Permanent (HCC) 01/24/2024 Clinical Communication Division of [facility] Internal Medicine, [facility] in [place], [place] [address] [place] [address] Opal Piña Georgette Appt Request 01/23/2024 11:00 AM CDT - 01/23/2024 11:59 PM CDT Hospital Encounter Department of Radiology in [place], [place] [address] [phone] Arlette Nath APRN, C.N.P. Injury Scrotum Subsequent Discharge Disposition: Home or Self Care 01/21/2024 Orders Only [facility] Services in [place] [address] [phone] Victorina Braun M.D. 01/19/2024 10:00 AM CDT External Outreach Senior [facility] in [place] [address] [phone] Victorina Bruan M.D. Weakness General (Primary Dx); Chronic Diastolic [...] Due To Conditions Classified Elsewhere (HCC); Insomnia; Fpc (Current) Anticoagulant Treatment; Fpc Use Of Insulin Active (HCC); Paralysis Diaphragm; Transplant Renal (HCC); Tremor; Other Retention Of Urine 01/19/2024 Orders Only [facility] in [place] [address] [phone] Arlette Nath APRN, C.N.PGeneva Injury Scrotum Subsequent (Primary Dx) 01/17/2024 10:00 AM CDT External Outreach [facility] in [place] [address] [phone] Manoj Davalos APRN, C.N.P., M.S.N. Chronic Kidney [...] Other Renal Disorders; Hypothyroidism On Replacement; Insomnia; Fpc (Current) Anticoagulant Treatment; Retail Analyst Use Of Insulin Active (HCC); Morbid Obesity (HCC); Long-Term Stay Certification Exam; Polypharmacy; Sleep Disorder; Weakness General 01/05/2024 3:00 PM CDT External Outreach [facility] in [place] [address] [phone] Victorina Braun M.D. Chronic Diastolic (Congestive) Heart Failure (HCC) (Primary Dx) 01/05/2024 9:15 AM CDT - 01/05/2024 1:59 PM CDT Emergency [facility] [address] [place] [phone] Congestive Heart Failure (HCC) (Primary Dx) Discharge Disposition: Home or Self Care 01/04/2024 3:00 PM CDT External Outreach [facility] in [place] [address] [phone] Arlette Nath APRN, C.N.P. 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 12/26/2023 10:00 AM CDT External Outreach [facility] in [place] [address] [phone] Victorina Braun M.D. 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); Anemia Of Chronic Renal Disease; Chronic Respiratory Failure ([facility]); Anxiety Generalized Disorder; Apnea Sleep Obstructive; 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[facility]); Atrial Fibrillation Permanent (HCC); Chronic Diastolic (Congestive) Heart Failure (HCC); Depression Major Recurrent Moderate (HCC); Diabetes Mellitus Type 2 With Diabetic Neuropathy ([facility]); Gastroesophageal Reflux Disease Without Esophagitis; Hyperlipidemia; Hypothyroidism On Replacement; Immunodeficiency Due To Conditions Classified Elsewhere (HCC); Insomnia; Fpc (Current) Anticoagulant Treatment; Retail Analyst Use Of Insulin Active (HCC); Morbid Obesity (HCC); Other Urethral 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; Transplant Renal (HCC); 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 12/23/2023 10:00 AM CDT External Outreach [facility] in [place] [address] [phone] Manoj Davalos APRN, C.N.PGeneva, M.S.N. 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); Chronic Diastolic (Congestive) Heart Failure (HCC); Depression Major Recurrent Moderate (HCC); Diabetes Mellitus Type 2 With Diabetic Neuropathy (HCC); Atrial Fibrillation Permanent (HCC); Morbid Obesity (HCC); Weakness General; Advanced Care Planning; Long-Term Stay Certification Exam; Polypharmacy; Rash; Anemia Of Chronic Renal Disease; Anxiety Generalized Disorder; Apnea Sleep Obstructive; 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); Gastroesophageal Reflux Disease Without Esophagitis; Hyperlipidemia; Hypertension Secondary To Other Renal Disorders; Hypothyroidism On Replacement; Retail Analyst Use Of Insulin Active (HCC); Major Depressive Disorder Single Episode Unspecified; Malignant Neoplasm Of Skin Basal Cell Carcinoma; Insomnia; Transplant Renal (HCC); Bradycardia; Fpc (Current) Anticoagulant Treatment; Sleep Disorder from Last 3 Months Immunizations Name Administration Dates Next Due HepB, Unspecified 02/08/2012 Influenza (IM) Preservative Free 05/12/2011,04/23 Influenza TIV (IM) 06/26/2018, 7,05/30/2017,2012,06/05/2013,05/17/2012,05/12/2011,0 05/15/2010,05/20/2009 Influenza high dose QV(65 ye ars or older) (PF) 07/01/2022,09/22/2021,07/30/2021 Influenza, Seasonal, Injectable 07/12/20 17,06/05/2013,05/17/2012,2008 Influenza, Unspecified 05/29/2020,05/20/2009 PCV13 03/17/2016 PPSV23 05/05/2011 SARS-COV-2 (COVID-19) - [facility] ([facility])(Discontinued) 09/22/2021 Td (Adult), adsorbed 01/12/2019 Td [...] Height 182.9 cm (6') 07/04/2023 6:11 PM INFORMATION CLERK Body Mass Index 39.14 07/04/2023 6:11 PM INFORMATION CLERK Plan of Treatment Upcoming Encounters Date Type Department Care Team (Late st Contact Info) Description 03/20/2024 9:00 AM CDT Appointment Department of Laboratory Medicine in [place], [place] [address] [phone] Aubrey Little M.D. [address] [place] [phone] 03/20/2024 10:00 AM CDT Comprehensive Visit Department of Cardiovascular Diseases in [place], [place] [address] [place] [address] Aubrey Little M.D. [address] [place] [phone] 04/13/2024 11:00 AM CDT Comprehensive Visit Department of Neurology in [place], [place] [address] [place] [phone] Florin Montes M.D. [address] [place] [address] Health Maintenance Due Date Last Done Comments Zoster Vaccines (1 of 2) 1969 Hepatitis B Vaccines (2 of 3 - Risk 3-dose series) 03/07/2012 02/08/2012 Pneumococcal vaccine (65+ years) (3 of 3 - PPSV23 or PCV20) 05/12/2016 03/17/2016, 05/05/2011 COVID-19 Vaccine (3 - Moderna risk series) 10/20/2021 09/22/2021, 11/18/2020, 10/21/2020 Fall Risk Screen (Annual) 08/22/2023 Influenza Vaccine (#1) 2024 , 07/01/2022, 09/22/2021, Additional history exists DTaP,Tdap,and Td Vaccines (5 - Td or Tdap) 01/12/2029 01/12/2019, 01/12/2019, 12/23/2018, Additional history exists Colonoscopy Discontinued 03/20/2015 Colorectal Cancer Screening Discontinued Abdominal Aortic Aneurysm (AAA) Screen Discontinued 10/11/2023, 10/11/2023, 08/12/2022, Additional history exists CT Colonography Discontinued Cologuard Discontinued FIT Discontinued HPV Vaccines Aged Out No longer eligi [...] ED patients; some inpatients) 08/12/2022 3:50 PM INFORMATION CLERK from Last 3 Months or Most Recently [...] and left varicocele. Arlette Nath APRN, C.N.P. IMToña US PROCEDU RES * DX Chest AP [...] Pelvis without IV Contrast (08/12/2022 3:50 PM INFORMATION CLERK) Anatomical Region Laterality Modality Abdomen, Pelvis, Abdominal R ST LOS, Abdominal ARZ LOS, Abdominal FLA LOS N/A Computed Tomography 08/12/2022 3:57 PM INFORMATION CLERK Impressions 08/12/2022 4:27 PM INFORMATION CLERK 1. ??Right lower quadrant renal transplant with [...] warrant 12-month follow-up. Narrative 08/12/2022 4:27 PM INFORMATION CLERK EXAM: CT ABDOMEN PELVIS WITHOUT IV CONTRAST [...] head. No pancreatic ductal dilation. Marked bilateral lac vieux renal atrophy. Probable bilateral renal hemorrhagic cysts [...] pancreatichead. No pancreatic ductal dilation. Marked bilateral lac vieux renal atrophy. Probable bilateral renalhemorrhagic cysts and [...] upper lobe location, or both may warrant [id number]. Mary Jane Rothman P.A.-C. IMG CT PROCEDURES from Last 3 Months or Most Recently Relevant to Health Maintenance Advance Directives For more information, please contact: [phone] * Full Code (Latest Code Status on File) Date Activated Date Inactivated Comments 07/01/2023 1:09 PM 01/05/2024 9:15 AM Question Answer Comments Full Code: Discussed Care Teams Workforce Planner Relationship Specialty Start Date End Date Elsewhere, Pcp PCP - General Internal Medicine 03/10/24
--- OUTSIDE RECORDS SUMMARY | 2024-03-15 12:55 | XMS_ITS | Encounter Summary ---
Author Organization [facility] Address [address] [place] [address] Care Team Providers Care Attending Physician Name Role Phone Elsewhere, Pcp Primary Care Provider Unavailabl e Encounter Details Date Type Department Care Team (Late Contact Info) Description 03/09/2024 Orders Only Division of Community Internal Medicine, [facility], in [place], [place] [address] [place] [phone] Manoj Davalos APRN, C.N.P., M.S.N. [address] [place] [phone] Social History Tobacco Use Types Packs/Day Years Used Date Smoking Tobacco: Former Cigars Smokeless Tobacco: Never Dental Answer Date Recorded Dental: Regular Dentist Unknown 03/05/20 Sex and Gender Information Value Date Recorded Sex Assigned at Not on file Gender Identity Not on file Sexual Orientation Not on file documented as of this encounter Plan of Treatment Upcoming Encounters Date Type Department Care Team (Late Contact Info) Description 03/20/2024 9:00 AM CDT Appointment Department of Laboratory Medicine in [place], [place] [address], [place] [address] Aubrey Little M.D. [address] [place] [phone] 03/20/2024 10:00 AM CDT Comprehensive Visit Department of Cardiovascular Diseases in [place], [place] [address], [place] [phone] Aubrey Little M.D. [address] [place] [address] 04/13/2024 11:00 AM CDT Comprehensive Visit Department of Neurology in [place], [place] [address] [place] [phone] Florin Montes M.D. [address] [place] [address] documented as of this encounter Visit Diagnoses Not on filedocumented in this encounter Care Teams Attending Physician Relationship Specialty Start Date End Date Elsewhere, Pcp PCP - General Internal Medicine 03/10/24 documented as of this encounter
--- OUTSIDE RECORDS SUMMARY | 2024-03-15 12:55 | XMS_ITS | Encounter Summary ---
Author Organization [facility] Address [address] [place] [address] Care Team Providers Care Virtual Assistant Name Role Phone Arlette Nath EDUARDO, C.N.P. Primary Care Provider Reason for Visit * Reason Comments Med Refill Encounter Details Date Type Department Care Team (Late Contact Info) Description 03/09/2024 Refill Division of Community Internal Medicine, [facility] in [place], [place] [address] [place] [address] Manoj Davalos APRN, C.N.P., M.S.N. [address] [place] [phone] Med Refill Social History Tobacco Use Types Packs/Day Years Used Date Smoking Tobacco: Former Cigars Smokeless Tobacco: Never Dental Answer Date Recorded Dental: Regular Dentist Unknown 03/05/20 22 Sex and Gender Information Value Date Recorded Sex Assigned at Not on file Gender Identity Not on file Sexual Orientation Not on file documented as of this encounter Miscellaneous Notes * Telephone Encounter - Sandrita Parekh - 03/09/2024 10:33 AM CDT Images from the original note were not included. Pharmacy Communication. Provider: Morena Davalos documented in this encounter Plan of Treatment Upcoming Encounters Date Type Department Care Team (Late Contact Info) Description 03/20/2024 9:00 AM CDT Appointment Department of Laboratory Medicine in [place], [place] [address], [place] [phone] Aubrey Little M.D. 200 [place] [address] 03/20/2024 10:00 AM CDT Comprehensive Visit Department of Cardiovascular Diseases in [place], [place] [address] [place] [phone] Aubrey Little M.D. 200 [place] [address] 04/13/2024 11:00 AM CDT Comprehensive Visit Department of Neurology in [place], [place] [address] [place] [phone] Florin Montes M.D. [address] [phone] documented as of this encounter Visit Diagnoses Not on filedocumented in this encounter Care Teams Virtual Assistant Relationship Specialty Start Date End Date Arlette Nath APRN, C.N.P. [address] [place] [address] [place] [address] PCP - General Family Medicine 12/22/23 03/09/24 documented as of this encounter
--- OUTSIDE RECORDS SUMMARY | 2024-03-15 12:56 | XMS_ITS | Encounter Summary ---
Author Organization [facility] Address [address] [place] [address] Care Team Providers Care Clothing And Textiles Teacher Name Role Phone Arlette Nath APRN, C.N.P. Primary Care Provider Reason for Visit * Reason Onset Date Comments Results 01/31/2024 Encounter Details Date Type Department Care Team (Late Contact Info) Description 01/31/2024 Clinical Communication Department of Community Internal Medicine in [place], [place] [address] [place] [address] Arlette Nath APRN, C.N.P. 300 [place] [phone] Results Social History Tobacco Use Types Packs/Day Years Used Date Smoking Tobacco: Former Cigars Smokeless Tobacco: Never Dental Answer Date Recorded Dental: Regular Dentist Unknown 03/05/20 Sex and Gender Information Value Date Recorded Sex Assigned at Not on file Gender Identity Not on file Sexual Orientation Not on file documented as of this encounter Miscellaneous Notes * Telephone Encounter - Osmany Sarkar - 01/31/2024 11:33 AM CDT Images from the original note were not included. documented in this encounter Plan of Treatment Upcoming Encounters Date Type Department Care Team (Late Contact Info) Description 03/20/2024 9:00 AM CDT Appointment Department of Laboratory Medicine in [place], [place] [address] [place] [phone] Aubrey Little M.D. 200 [place] [address] 03/20/2024 10:00 AM CDT Comprehensive Visit Department of Cardiovascular Diseases in [place], [place] [address] [place] [address] Aubrey Little M.D. 200 [place] [address] 04/13/2024 11:00 AM CDT Comprehensive Visit Department of Neurology in [place], [place] [address] [place] [phone] Florin Montes M.D. [address] [place] [phone] documented as of this encounter Visit Diagnoses Not on filedocumented in this encounter Care Teams Clothing And Textiles Teacher Relationship Specialty Start Date End Date Arlette Nath APRN, C.N.P. [address] [place], [place] [address] [phone] PCP - General Family Medicine 12/22/23 03/09/24 documented as of this encounter
--- OUTSIDE RECORDS SUMMARY | 2024-03-15 12:56 | XMS_ITS | Encounter Summary ---
Author Organization [facility] Address [address] [place] [address] Care Team Providers Care Finance Consultant Name Role Phone Arlette Nath APRN, C.N.P. Primary Care Provider Reason for Visit * Appointment Request (Routine) - Closed Specialty Diagnoses / Procedures Referred By Conthardy t Referred To Contact Alf Facility Referral ID Status Reason Start Date Expiration Date Visits Re quested Visits Authorized [id number] Closed 02/09/2024 02/08/2025 1 1 Encounter Details Date Type Department Care Team (Latest Contact Info) Description 02/09/2024 10:00 AM CDT External Outreach Senior Services in [facility] [address] [phone] Arlette Nath APRN, C.N.P. [address] [place] [phone] Spells Undifferentiated (Primary Dx); Chronic Diastolic (Congestive) Heart Failure (HCC) Social History Tobacco Use Types Packs/Day Years [...] Sign Reading Time Taken Comments Blood Pressure 93/58 02/09/2024 10:56 AM CDT Pulse 74 02/09/2024 10:56 AM CDT Temperature 36.6 ??C (97.8 ??F) 02/09/2024 10:56 AM C DT Respiratory Rate 20 02/09/2024 10:56 AM CDT Oxygen Saturation 98% 02/09/2024 10:56 AM CDT Inhaled Oxygen Concentration - - Weight 127 kg (281 lb) 02/09/2024 10:56 AM CDT Height - - Body Mass Index 38.11 07/04/2023 6:11 PM HAMMERER TAB documented in this encounter Patient Instructions * Patient Instructions* Arlette Nath APRN, C.N.P. - 02/09/2024 10:00 AM CDT ORDERS and INSTRUCTIONS: Change metolazone 2.5 mg to every other day. Draw CMP tomorrow. Nursing to take Blood pressure and pulse every shift x 3 days. Notify provider if B/P less than 90/60 and /or pulse less than 60. Medications Discontinued During This Encounter Medication Reason metOLazone (ZAROXOLYN) 2.5 mg tablet Dose adjustment Orders Placed This Encounter metOLazone (Zaroxolyn) 2.5 mg tablet Sig: Take 1 tablet (2.5 mg total) by mouth every other day. Dispense: 30 tablet Refill: 5 Electronically signed by: Arlette Nath APRN, C.N.P. 02/09/24 11:31 AM CDT documented in this encounter Progress Notes * Arlette Nath APRN, C.N.P. - 02/09/2024 10:00 AM CDT CHIEF COMPLAINT / REASON FOR VISIT [facility] Acute Visit Visit Type: In Person: Face to Face SUBJECTIVE HISTORY OF PRESENT ILLNESS Today's narrative history (obtained from Patient, Nursing, and PT/OT): I was asked to see Diego today due to an unresponsive spell. Therapy reports he was walking with his walker when hefroze then slumped his head over the walker complaining of a headache. He was unable to follow directions per nursing. They got him in his wheelchair. He was starting to become more alert when I saw him. He adamantly refused to go to the ED. He did agree to lie in bed after refusing. Blood pressure was documented as 93/88 then 88/55 a minute later. Headache had dissipated when I saw him. He stated that he was fine.He was following commands. Oxygen in place. He did fall asleep once he was back in bed. The following medical problems were actively reviewed (including updating overview sections as necessary) and addressed as part of today's visit: #1 Spells Undifferentiated Overview: Nursing and therapy report he was walking to therapy when he froze He was staring then slumped down over his walker complaining of a headache. He did not follow directions. Neuro intact per nurseand therapy. BS in the 200's.He sat in [...] DNR/DNI then changed his mind when the nurseasked if she should find him with no heartbeat or breathing would he want to be resuscitated, he replied yes. I called his girlfriend Tete to come to the fpc to be a part of a discussion on his code status. He wants to be full code but does not want to go to the hospital. #2 Chronic Diastolic (Congestive) Heart Failure (HCC) Overview: Chronic heart failure with preserved ejection fraction. Final Impressions: 10/12/2023 1. Technically limited exam with poor acoustic windows. 2. Normal LV size, moderately increased wall thickness, low normal global systolic function with anestimated EF of ~50%. 3. Right ventricular cavity size is normal, global systolic RV function is mildly reduced. 4. Severely enlarged left atrium. 5. The aortic valve is trileaflet and calcified, no stenosis and mild regurgitation. 6. The mitral valve is sclerotic, mild mitral regurgitation. Hospitalized December 2023 and diuresed 35 to 54 lb. Past medical/surgical history, social history, medications, and allergies were reviewed and are visible in the Encounter view. Review of systems was performed, as allowable by patient's cognitive status, and incorporating collateral history if applicable. Relevant positives are noted elsewhere in this note, otherwise negative. OBJECTIVE BP 93/58 Pulse 74 Temp 36.6 ??C Resp 20 Wt 127 kg SpO2 98% BMI 38.11 kg/m?? PHYSICAL EXAM Vitals and nursing note reviewed. Exam conducted with a supervisor powder and primer canning present. Constitutional Appearance: He is ill-appearing. HENT Head: Normocephalic and atraumatic. Right Ear: External ear normal. Left Ear: External ear normal. Nose: Nose normal. Mouth/Throat: Mouth: Mucous membranes are dry. Pharynx: Oropharynx is clear. Eyes Comments: Pinpoint pupils Cardiovascular Rate and Rhythm: Normal rate and regular rhythm. Pulses: Normal pulses. Heart sounds: Normal heart sounds. Pulmonary Effort: Pulmonary effort is normal. Breath sounds: Normal breath sounds. Comments: On continuous oxygen Abdominal General: Bowel sounds are normal. Palpations: Abdomen is soft. Musculoskeletal Cervical back: Normal range of motion. Right lower leg: Edema present. Comments: [facility] Skin General: Skin is warm. Neurological Mental Status: He is alert. Sensory: Sensory deficit present. ASSESSMENT / PLAN Full background details regarding problems addressed at today's visit can be found in the HPI. Pertinent changes to the care plan based on today's evaluation are explicitly discussed below, otherwiselisted problems are stable and present management will be continued. #1 Spells Undifferentiated Assessment & Plan: Nursing will monitor Blood pressure and pulse every shift x 3 days #2 Chronic Diastolic (Congestive) Heart Failure (HCC) Assessment & Plan: CMP will be drawn tomorrow. Metozolone will be changed to every other day. Other orders - metOLazone (Zaroxolyn) 2.5 mg tablet; Take 1 tablet (2.5 mg total) by mouth every other day., Starting Renetta 02/09/2024, Until Tue02/08/2025, Normal PATIENT EDUCATION Ready to learn, no [...] orders, communicating orders to facility. Total time 30 minutes. documented in this encounter Miscellaneous Notes * Assessment & Plan Note - Arlette Nath APRN, C.N.P. - 02/09/2024 11:21 AM CDT Associated Problem(s): Spells Undifferentiated Nursing will monitor Blood pressure and pulse every shift x 3 days * Assessment & Plan Note - Arlette Nath APRN, C.N.P. - 02/09/2024 11:17 AM CDT Associated Problem(s): Chronic Diastolic (Congestive) Heart Failure (HCC) CMP will be drawn tomorrow. Metozolone will be changed to every other day. documented in this encounter Plan of Treatment Upcoming Encounters Date Type Department Care Team (Late st Contact Info) Description 03/20/2024 9:00 AM CDT Appointment Department of Laboratory Medicine in [place], [place] [address] [phone] Aubrey Little M.D. [address] [place] [phone] 03/20/2024 10:00 AM CDT Comprehensive Visit Department of Cardiovascular Diseases in [place], [place] [address] [phone] Aubrey Little M.D. 200 [place] [address] 04/13/2024 11:00 AM CDT Comprehensive Visit Department of Neurology in [place], [place] [address] [phone] Florin Montes M.D. [address] [phone] documented as of this encounter Visit Diagnoses Diagnosis Spells Undifferentiated- Primary Chronic Diastolic (Congestive) Heart Failure (HCC) documented in this encounter Care Teams Finance Consultant Relationship Specialty Start Date End Date Arlette Nath APRN, C.N.P. 300 [place] [address] PCP - General Family Medicine 12/22/23 03/09/24 documented as of this encounter
--- OUTSIDE RECORDS SUMMARY | 2024-03-15 12:56 | XMS_ITS | Encounter Summary ---
Author Organization [facility] Address [address] [place] [address] Care Team Providers Care Flow Machine Operator Name Role Phone Elsewhere, Pcp Primary Care Provider Unavailabl e Encounter Details Date Type Department Care Team (Late st Contact Info) Description 03/09/2024 Orders Only Pharmacy Prior Auth MARYSE [phone] Ruby Aguiar Social History Tobacco Use Types Packs/Day Years [...] CDT Appointment Department of Laboratory Medicine in [place], [place] [address] [phone] [place] [address] 03/20/2024 10:00 AM CDT Comprehensive Visit Department of Cardiovascular Diseases in [place], [place] [address] [phone] [place] [phone] 04/13/2024 11:00 AM CDT Comprehensive Visit Department of Neurology in [place], [place] [address] [place] [address] Florin Montes M.D. [address] [place] [phone] documented as of this encounter Visit Diagnoses Not on filedocumented in this encounter Care Teams Flow Machine Operator Relationship Specialty Start Date End Date Elsewhere, Pcp PCP - General Internal Medicine 03/10/24 documented as of this encounter
--- OUTSIDE RECORDS SUMMARY | 2024-03-15 12:56 | XMS_ITS | Encounter Summary ---
Author Organization [facility] Address [address] [place] [phone] Care Team Providers Care 4 H Youth Development Specialist Name Role Phone Arlette Nath EDUARDO, C.N.P. Primary Care Provider Encounter Details Date Type Department Care Team (Late Contact Info) Description 02/17/2024 Orders Only Division of [facility] Internal Medicine, [facility], in [place], [place] [address] [place] [phone] Manoj Davalos APRN, C.N.P., M.S.N. [address] [place] [phone] Social History Tobacco Use Types Packs/Day Years [...] CDT Appointment Department of Laboratory Medicine in [place], [place] [address] [place] [address] Aubrey Little M.D. [address] [place] [phone] 03/20/2024 10:00 AM CDT Comprehensive Visit Department of Cardiovascular Diseases in [place], [place] [address] [place] [phone] Aubrey Little M.D. [address] [place] [address] 04/13/2024 11:00 AM CDT Comprehensive Visit Department of Neurology in [place], [place] [address] [place] [phone] Florin Montes M.D. [address] [place] [phone] documented as of this encounter Visit Diagnoses Not on filedocumented in this encounter Care Teams 4 H Youth Development Specialist Relationship Specialty Start Date End Date Arlette Nath APRN, C.N.P. [address] [place] [phone] PCP - General Family Medicine 12/22/23 03/09/24 documented as of this encounter
--- OUTSIDE RECORDS SUMMARY | 2024-03-15 12:56 | XMS_ITS | Encounter Summary ---
Author Organization [facility] Address [address] [place] [address] Care Team Providers Care Dust Box Worker Name Role Phone Arlette Nath APRN, C.N.P. Primary Care Provider Reason for Referral * Outpatient (Routine) - Closed Specialty Diagnoses / Procedures Referred By Armaan howell Referred To Contact Diagnoses Injury Scrotum Subsequent Procedures US Scrotum with Doppler Arlette Nath APRN, C.N.P. [address] [place] [phone] [facility] Region Referral ID Status Reason Start Date Expiration Date Visits Re quested Visits Authorized [id number] Closed 01/19/2024 01/18/2025 1 1 Encounter Details Date Type Department Care Team (Late st Contact Info) Description 01/19/2024 Orders Only Senior Services in [facility] [address] [phone] Arlette Nath APRN, C.N.P. [address] [place] [phone] Injury Scrotum Subsequent (Primary Dx) Social History Tobacco Use Types [...] CDT Appointment Department of Laboratory Medicine in [place], [place] [address] [phone] Aubrey Little M.D. 200 [place] [phone] 03/20/2024 10:00 AM CDT Comprehensive Visit Department of Cardiovascular Diseases in [place], [place] [address] [place] [phone] Aubrey Little M.D. 200 [place] [address] 04/13/2024 11:00 AM CDT Comprehensive Visit Department of Neurology in [place], [place] [address] [phone] Florin Montes M.D. [address] [phone] documented as of this encounter Results * US Scrotum with Doppler (01/23/2024 [...] 3. Small bilateral hydroceles and left varicocele. Hal Rushing APRNNArsh IMG US PROCEDU RES documented in this encounter Visit Diagnoses Diagnosis Injury Scrotum Subsequent- Primary Injury Scrotum Subsequent documented in this encounter Care Teams Dust Box Worker Relationship Specialty Start Date End Date Arlette Nath APRN, C.N.P. [address] [place] [phone] PCP - General Family Medicine 12/22/23 03/09/24 documented as of this encounter
--- OUTSIDE RECORDS SUMMARY | 2024-03-15 12:56 | XMS_ITS | Encounter Summary ---
Author Organization [facility] Address [address] [place] [address] Care Team Providers Care Fundraising Manager Name Role Phone Elsewhere, Pcp Primary Care Provider Unavailabl e Reason for Visit * Reason Onset Date Comments Home Health Care 03/08/2024 Encounter Details Date Type Department Care Team (Latest Contact Info) Description 03/08/2024 Clinical Communication Department of Community Internal Medicine in [place], [place] [address] [place] [phone] Arlette Nath APRN, C.N.P. [address] [place] [phone] Home Health Care Social History Tobacco Use Types Packs/Day Years Used Date Smoking Tobacco: Former Cigars Smokeless Tobacco: Never Dental Answer Date Recorded Dental: Regular Dentist Unknown 03/05/20 22 Sex and Gender Information Value Date Recorded Sex Assigned at Not on file Gender Identity Not on file Sexual Orientation Not on file documented as of this encounter Miscellaneous Notes * Telephone Encounter - Martina Reyes, C.M.A. - 03/08/2024 1:44 PM CDT SUBJECTIVE CHIEF COMPLAINT / REASON FOR CALL Home Health Care Information Discussed Called Crystal at [facility] and informed her of information per Arlette Nath APRN, C.N.P. PLAN Disposition/Recommendation: self-care . appropriate at this time, patient encouraged to call back with questions Information/Education: patient/caller able to teach back Caller agreeable to plan of care: yes The following references were used: provider Arlette Nath APRN, C.N.P. documented in this encounter Plan of Treatment Upcoming Encounters Date Type Department Care Team (Late st Contact Info) Description 03/20/2024 9:00 AM CDT Appointment Department of Laboratory Medicine in [place], [place] [address] [phone] Aubrey Little M.D. [address] [place] [phone] 03/20/2024 10:00 AM CDT Comprehensive Visit Department of Cardiovascular Diseases in [place], [place] [address] [phone] Aubrey Little M.D. [address] [place] [phone] 04/13/2024 11:00 AM CDT Comprehensive Visit Department of Neurology in [place], [place] [address] [phone] Florin Montes M.D. [address] [phone] documented as of this encounter Visit Diagnoses Not on filedocumented in this encounter Care Teams Fundraising Manager Relationship Specialty Start Date End Date Elsewhere, Pcp PCP - General Internal Medicine 03/10/24 documented as of this encounter
--- OUTSIDE RECORDS SUMMARY | 2024-03-15 12:56 | XMS_ITS | Encounter Summary ---
Author Organization [facility] Address [address] [place] [address] Care Team Providers Care Municipal Bond Trader Name Role Phone Arlette Nath EDUARDO C.N.PGeneva Primary Care Provider Reason for Referral * Medication Prior Authorization - Closed Specialty Diagnoses / Procedures Referred By Armaan howell Referred To Contact Manoj Davalos APRN, C.N.Vidal, M.S.N. [address] [place] [phone] Referral ID Status Reason Start Date Expiration Date Visits Re quested Visits Authorized [id number] Closed 1 1 Reason for Visit * Reason Comments Abnormal lab result Unresponsive episode Review Hypokalemia lab result Prior unresponsive episode Elevated creatinine level * Appointment Request (Routine) - Closed Specialty Diagnoses / Procedures Referred By Armaan howell Referred To Contact [facility] Referral ID Status Reason Start Date Expiration Date Visits Re quested Visits Authorized [id number] Closed 02/10/2024 02/09/2025 1 1 Encounter Details Date Type Department Care Team (Latest Contact Info) Description 02/10/2024 10:00 AM CDT External Outreach Senior Services in [facility] [address] [place] [phone] Manoj Davalos APRN, C.N.Vidal, M.S.N. 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 - 02/10/2024 10:00 AM CDT CHIEF COMPLAINT / REASON FOR VISIT [facility] Acute /Re-AdmissionVisit Visit Type: In Person: Face to Face SUBJECTIVE HISTORY OF PRESENT ILLNESS Cleveland Cortez is a 73-year-old male resident admitted to [facility]. Past medical history is significant for Diego Guthrie is a(n) 73 y.o. with a history of DM Type II, s/p left BKA, CKD s/p renal transplant in 2013 (currently stage 4 CKD), and chronic diastolic CHF. Today's narrative history (obtained from Patient, Nursing, and PT/OT): Patient is seen today for multiple concerns. Patient we will be sent to the ED for further evaluation of his abnormal labs and increasing right lower extremity edema. The following medical problems were actively reviewed (including updating overview sections as necessary) and addressed as part of today's visit: #1 Hypokalemia Overview: 02/10/2024: Hypokalemia of 2.6 reported. Potassium chloride [...] GLUCOSEPOC 226 (H) 11/02/2022 CALCIUM 9.6 02/10/2024 #2 Edema Overview: 4+ edema right leg. #3 Chronic Diastolic (Congestive) Heart Failure (HCC) Overview: [...] lb. 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 Review of systems was performed, as allowable by patient's cognitive status, and incorporating collateral history if applicable. Relevant positives are noted elsewhere in this note, otherwise negative. OBJECTIVE BP 106/66 Pulse 76 Temp 36.2 ??C Resp 18 Wt 127 kg SpO2 98% Comment: ra BMI 38.08 kg/m?? Constitutional General: He is not in acute distress. Lying in bed Appearance: Normal appearance. Comments: HENT Right Ear: External ear normal. Left Ear: External ear normal. Mouth: Mucous membranes are moist. Cardiovascular Rate and Rhythm: Normal rate and regular rhythm. Heart sounds: Normal heart sounds. Pulmonary Effort: Pulmonary effort is normal. Breath sounds: Diminished breath sounds in all lobes. Oxygen supplement at 2.5 L nasal cannula Abdominal General: Bowel sounds are normal. Palpations: Abdomen is soft. Musculoskeletal Right lower le+ edema. Left lower leg: Left lower extremity amputation with prosthetic applied Skin General: Skin is warm and dry. Neurological Mental Status: He is alert and oriented. Mental status is at baseline. Psychiatric Mood and Affect: Mood normal. ASSESSMENT / PLAN Full background details regarding problems addressed at today's visit can be found in the HPI. Pertinent changes to the care plan based on today's evaluation are explicitly discussed below, otherwiselisted problems are stable and present management will be continued. #1 Hypokalemia Assessment & Plan: Facility had called on MD who ordered potassium chloride supplement 40mEQ stat plus potassium chloride 20MEQ 3 times daily. But, during round, seeing order factors and elevated creatinine level, patient was sent to the ED for further evaluation of hypokalemia. Orders: - Basic Metabolic Panel; Future; Expected date: 02/13/2024 #2 Edema Assessment & Plan: Right lower extremity 3+ edema. Patient is sent to the ED #3 Chronic Diastolic (Congestive) Heart Failure (HCC) Assessment & Plan: Right lower extremity 3+ edema but denied shortness of breaths, wheezing, cough or chest pain. Weight drop of about 2.2 lb. 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 during this visit, patientchange code status to DNR/DNI and agreed to go to the ED for further evaluation. Other orders - potassium chloride (K-Tab) 20 mEq ER tablet; Take 2 tablets (40 mEq total) by mouth 2 (two) timesa day with meals for 3 days. Then resume potassium chloride 20MEQ daily., Starting Tue02/10/2024, Until Tue02/13/2024, Normal - [facility] Internal Medicine office visit (clinic); Future; Expected date: 02/14/2024 PATIENT EDUCATION Ready to learn, no apparent learning barriers were identified; learning preferences include listening. Explained diagnosis and treatment plan; patient/child/caregiver expressed understanding of the content. BILLING Billing based on: Time, including the following tasks: reviewing the electronic medical record, updating the EPIC Problem List, reviewing written facility- provided information, reviewing information in facility EMR, obtaining collateral history from facility staff, Interviewing and examining the patient, placing orders, communicating orders to facility, providing education/counseling to patient, family, and/or facility staff. Total time 35 minutes. documented in this encounter Miscellaneous Notes * Assessment & Plan Note - Manoj Davalos APRN, C.NArsh, M.S.N. - 02/11/2024 5:37 PM CDTAssociated Problem(s): Advanced Care Planning Had a lengthy discussion with the patient due to nurses concerns about his full code status, hypokalemia and other conditions going on and patient refusing to go to the ED. during this visit, patientchange code status to DNR/DNI and agreed to go to the ED for further evaluation. * Assessment & Plan Note - Manoj Davalos APRN, C.NArsh, M.S.N. - 02/11/2024 5:35 PM CDTAssociated Problem(s): Hypokalemia Facility had called on MD who ordered potassium chloride supplement 40mEQ stat plus potassium chloride 20MEQ 3 times daily. But, during round, seeing order factors and elevated creatinine level, patient was sent to the ED for further evaluation of hypokalemia. * Assessment & Plan Note - Manoj Davalos APRN, C.N.P., M.S.N. - 02/11/2024 5:29 PM CDTAssociated Problem(s): Edema Right lower extremity 3+ edema. Patient is sent to the ED * Assessment & Plan Note - Manoj Davalos APRN, C.N.P., M.S.N. - 02/11/2024 5:27 PM CDTAssociated Problem(s): Chronic Diastolic (Congestive) Heart Failure (HCC) Right lower extremity 3+ edema but denied shortness of breaths, wheezing, cough or chest pain. Weight drop of about 2.2 lb. We will continue care plan documented in this encounter Plan of Treatment Upcoming Encounters Date Type Department Care Team (Late st Contact Info) Description 03/20/2024 9:00 AM CDT Appointment Department of Laboratory Medicine in [place], [place] [address] [place] [phone] Aubrey Little M.D. [address] [place] [address] 03/20/2024 10:00 AM CDT Comprehensive Visit Department of Cardiovascular Diseases in [place], [place] [address] [place] [phone] Aubrey Little M.D. 200 [place] [phone] 04/13/2024 11:00 AM CDT Comprehensive Visit Department of Neurology in [place], [place] [address] [place] [phone] Florin Montes M.D. 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 [address] [place] [phone] PCP - General Family Medicine 12/22/23 03/09/24 documented as of this encounter
--- OUTSIDE RECORDS SUMMARY | 2024-03-15 12:56 | XMS_ITS | Encounter Summary ---
Author Organization [facility] Address [address] [place] [address] Care Team Providers Care Prevocational/Rehabilitation Counselor Name Role Phone Arlette Nath APRN, C.N.P. Primary Care Provider Reason for Referral * Outpatient (Routine) - Closed Specialty Diagnoses / Procedures Referred By Armaan howell Referred To Contact Diagnoses Injury Scrotum Subsequent Procedures US Scrotum with Doppler Arlette Nath APRN, C.N.P. [address] [place] [phone] [facility] Region Referral ID Status Reason Start Date Expiration Date Visits Re quested Visits Authorized [id number] Closed 01/19/2024 01/18/2025 1 1 Reason for Visit * Outpatient (Routine) - Closed Specialty Diagnoses / Procedures Referred By Armaan howell Referred To Contact Diagnoses Injury Scrotum Subsequent Procedures US Scrotum with Doppler Arlette Nath APRN, C.N.P. [address] [place] [address] [facility] Region Referral ID Status Reason Start Date Expiration Date Visits Re quested Visits Authorized [id number] Closed 01/19/2024 01/18/2025 1 1 Encounter Details Date Type Department Care Team (Latest Contact Info) Description 01/23/2024 11:00 AM CDT - 01/23/2024 11:59 PM CDT Hospital Encounter Department of Radiology in [place], [place] 0 [place] [phone] Arlette Nath, EDUARDO, C.N.P. [address] [facility] [place] [phone] Injury Scrotum Subsequent Discharge Disposition: Home or Self Care Social [...] 2 (two) times a day. 60 tablet 07/11/2023 benzonatate (TESSALON PERLES) 100 mg capsule Take 100 mg by mouth 3 (three) times a day as needed. 12/14/2023 guaiFENesin (MUCINEX) 600 mg 12 hr tablet Take 600 mg by mouth 2 (two) times a day as needed. 12/14/2023 acetaminophen (TYLENOL) 500 mg tablet Take 1,000 mg by mouth every 6 (six) hours. 03/07/2024 albuterol 90 mcg/actuation inhaler Inhale 2 puffs every 6 (six) hours as needed for shortness of breath or wheezing. 01/08/2024 03/07/2024 amLODIPine (NORVASC) 5 mg tablet Take 5 mg by mouth daily. 01/24/2024 carvediloL (COREG) 6.25 mg tablet Take 6.25 mg by mouth 2 (two) times a day with meals. 12/14/2023 03/07/2024 escitalopram (LEXAPRO) 20 mg tablet Take 1 tablet (20 mg total) by mouth daily. 30 tablet 07/11/2023 03/07/2024 hydrALAZINE (APRESOLINE) 10 mg tablet Take 40 mg by mouth every 8 (eight) hours. 03/07/2024 insulin aspart U-100 (NovoLOG FlexPen) 100 unit/mL (3 mL) injection Inject 1-6 Units under the skin 3 (three) times a day with meals. Sliding scale 12/14/2023 03/07/2024 insulin glargine-yfgn (SEMGLEE) 100 unit/mL (3 mL) injection Inject 20 Units under the skin at bedtime. And 5 units in the a.m. 01/08/2024 01/24/2024 insulin glargine-yfgn (SEMGLEE) 100 unit/mL (3 mL) injection Inject 20 Units under the skin at bedtime. 01/24/2024 03/07/2024 insulin lispro (HumaLOG KwikPen Insulin) 100 unit/mL injection Inject 1-6 Units under the skin 3 (three) times a day with meals. Per Sliding Scale If Blood Sugar is 150 to 199, give 4 Units. If Blood Sugar is 200 to 249, give 6 Units. If Blood Sugar is 250 to 299, give 8 Units. If Blood Sugar is 300 to 349, give 10 Units. If Blood Sugar is 350 to 399, give 12 Units. If Blood Sugar is greater than 399, give 14 Units. If Blood Sugar is greater than 399, call MD. Pharmacy select brand per patient insurance/preference . 12/25/2023 01/24/2024 insulin lispro (HumaLOG KwikPen Insulin) 100 unit/mL [...] 7 units Pharmacy select brand per patient insurance/preference . 01/24/2024 03/07/2024 ipratropium-albuteroL (DUONEB) 0.5-2.5 mg/3 mL nebulizer solution Inhale 3 mL every 6 (six) hours as needed. 12/14/2023 03/07/2024 isosorbide dinitrate (ISORDIL) 40 mg tablet Take 40 mg by mouth 3 (three) times a day. 03/07/2024 levothyroxine (SYNTHROID, LEVOTHROID) 100 mcg tablet Take 1 tablet (100 mcg total) by mouth daily. 12/25/2023 03/07/2024 melatonin 3 mg tablet Take 1 tablet (3 mg total) by mouth at bedtime. 30 tablet 12/23/2023 03/07/2024 miconazole (MICATIN) 2 % powderIndications:Rash Apply 1 Application topically 3 (three) times a day. Apply to groin rash area 3 times daily. 12/25/2023 03/07/2024 morphine 100 mg/5 mL (20 mg/mL) concentrated solutionIndications:No n Pain Indication: Non Pain. Give 2.5 mg every 4 hours prn by mouth for dyspnea x 3 days. Give first dose now. 30 mL 01/04/2024 01/24/2024 mycophenolate (CELLCEPT) 250 mg capsule Take 2 capsules (500 mg total) by mouth every 12 (twelve) hours. 01/08/2024 03/07/2024 pantoprazole (PROTONIX) 40 mg EC tablet Take 1 tablet (40 mg total) by mouth every morning before breakfast. 12/25/2023 03/07/2024 polyethylene glycol (MIRALAX) 17 gram/dose oral powder Take 17 g by mouth daily. Dissolve each 17 g dose in 240 mL (8 ounces) of beverage. 03/07/2024 potassium chloride (K-TAB) 20 mEq CR tablet Take 20 mEq by mouth 2 (two) times a day with meals. 02/10/2024 predniSONE (DELTASONE) 20 mg tablet Take 1 tablet (20 mg total) by mouth daily for 5 days. 5 tablet 01/04/2024 01/24/2024 pregabalin (LYRICA) 150 mg capsule Take 1 capsule (150 mg total) by mouth at bedtime. 30 capsule 01/21/2024 02/17/2024 rosuvastatin (CRESTOR) 10 mg tablet Take 1 tablet (10 mg total) by mouth at bedtime. 30 tablet 07/11/2023 03/07/2024 sennosides (senna) 8.6 mg tablet Take 2 tablets (17.2 mg total) by mouth at bedtime. 60 tablet 12/23/2023 03/07/2024 tacrolimus (PROGRAF) 0.5 mg capsuleIndications:pre vention of kidney transplant rejection Take 1 capsule (0.5 mg total) by mouth 2 (two) times a day Indications: prevent kidney transplant rejection. 60 capsule 07/11/2023 03/07/2024 tamsulosin (FLOMAX) 0.4 mg 24 hr capsule Take 1 capsule (0.4 mg total) by mouth 2 (two) times a day. 60 capsule 11 07/11/2023 03/07/2024 torsemide 40 mg tablet Take 60 mg by mouth every morning AND 40 mg in the afternoon. 90 tablet 01/17/2024 02/13/2024 documented as of this encounter Plan of Treatment Upcoming Encounters Date Type Department Care Team (Late st Contact Info) Description 03/20/2024 9:00 AM CDT Appointment Department of Laboratory Medicine in [place], [place] [address] [place] [phone] Aubrey Little M.D. [address] [place] [phone] 03/20/2024 10:00 AM CDT Comprehensive Visit Department of Cardiovascular Diseases in [place], [place] [address] [place] [phone] Aubrey Little M.D. [address] [place] [phone] 04/13/2024 11:00 AM CDT Comprehensive Visit Department of Neurology in [place], [place] [address] [place] [phone] Florin Montes M.D. [address] [place] [phone] documented as of this encounter Procedures Procedure Name Priority Date/Time Associated Diagnosis Comments US SCROTUM WITH DOPPLER RAD - Routine (most inpatients and all outpatients) 01/23/2024 11:46 AM CDT Injury Scrotum Subsequent documented in this encounter Results * US Scrotum with [...] bilateral hydroceles and left varicocele. Arlette Nath APRN C.N.P. IMG US PROCEDU RES documented in this encounter Visit Diagnoses Diagnosis Injury Scrotum Subsequent documented in this encounter Care Teams Prevocational/Rehabilitation Counselor Relationship Specialty Start Date End Date Arlette Nath APRN, C.N.P. [address] [place] [phone] PCP - General Family Medicine 12/22/23 03/09/24 documented as of this encounter
--- OUTSIDE RECORDS SUMMARY | 2024-03-15 12:56 | XMS_ITS | Encounter Summary ---
Author Organization [facility] Address [address] [place] [address] Care Team Providers Care Director Of Infection Prevention Name Role Phone Arlette Nath APRN, C.N.P. Primary Care Provider Reason for Referral * Outpatient (Routine) - Authorized Specialty Diagnoses / Procedures Referred By Contact Referred To Contact Cardiovascular Diseases / Cardiovascular Disease Diagnoses Chronic Diastolic (Congestive) Heart Failure (HCC) Arlette Nath APRN, C.N.P. [address] [place] [address] [facility] Region Referral ID Status Reason Start Date Expiration Date V isits Requested Visits Authorized [id number] Authorized 01/30/2024 07/31/2025 1 1 Reason for Visit * Appointment Request (Routine) - Closed Specialty Diagnoses / Procedures Referred By Contac t Referred To Contact Residential Facility Referral ID Status Reason Start Date Expiration Date Visits Re quested Visits Authorized [id number] Closed 01/26/2024 01/25/2025 1 1 Encounter Details Date Type Department Care Team (Latest Contact Info) Description 01/30/2024 10:00 AM CDT External Outreach Senior Services in [facility] [address], [place] [address] Arlette Nath APRN, C.N.P. [address] [place] [address] Chronic Diastolic (Congestive) Heart Failure (HCC) (Primary Dx); Injury Scrotum Subsequent Social History Tobacco Use Types Packs/Day Years [...] Sign Reading Time Taken Comments Blood Pressure 187/85 01/30/2024 9:03 AM CDT Pulse 85 01/30/2024 9:03 AM CDT Temperature 36.7 ??C (98.1 ??F) 01/30/2024 9:03 AM CD T Respiratory Rate 20 01/30/2024 9:03 AM CDT Oxygen Saturation 94% 01/30/2024 9:03 AM CDT Inhaled Oxygen Concentration - - Weight 131 kg (288 lb) 01/30/2024 9:03 AM CDT Height - - Body Mass Index 39.06 07/04/2023 6:11 PM CHIEF CATALYST OPERATOR documented in this encounter Patient Instructions * Patient Instructions* Arlette Nath APRN, C.N.P. - 01/30/2024 10:00 AM CDT ORDERS and INSTRUCTIONS: See wound orders under wounds. Orders Placed This Encounter Cardiovascular Disease - General cardiology consult (clinic) Standing Status: Future Standing Expiration Date: 05/01/2025 Referral Priority: Routine Referral Type: Outpatient Referral Location: [facility] Region Requested Specialty: Cardiovascular Diseases Number of Visits Requested: 1 metOLazone (ZAROXOLYN) 2.5 mg tablet Sig: Take 1 tablet (2.5 mg total) by mouth daily. Dispense: 90 tablet Refill: 3 Electronically signed by: Arlette Nath APRN, C.N.P. 01/30/24 6:09 PM CDT documented in this encounter Progress Notes * Arlette Nath APRN, C.N.P. - 01/30/2024 10:00 AM CDT CHIEF COMPLAINT / [facility]IT [facility] Follow Up Visit Visit Type: In Person: Face to Face SUBJECTIVE HISTORY OF PRESENT ILLNESS Today's narrative history (obtained from Patient and Nursing): He is being seen today for scrotal wound and oxygen desaturation with exertion. Therapy reports his O2 sat went to 60's when they were working with him in therapy. He feels like he has gained 12 lbs since being re-admitted from [place] for CHF. 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 He does not want dialysis. The following medical problems were actively reviewed (including updating overview sections as necessary) and addressed as part of today's visit: #1 Chronic Diastolic (Congestive) Heart Failure (HCC) Overview: [...] 2023 and diuresed 35 to 54 lb. #2 Injury Scrotum Subsequent Overview: Posterior scrotal wound. Past medical/surgical history, social history, medications, and allergies were reviewed and are visible in the Encounter view. Review of systems was performed, as allowable by patient's cognitive status, and incorporating collateral history if applicable. Relevant positives are noted elsewhere in this note, otherwise negative. OBJECTIVE BP (!) 187/85 Pulse 85 Temp 36.7 ??C Resp 20 Wt 131 kg SpO2 94% BMI 39.06 kg/m?? PHYSICAL EXAM Vitals and nursing note reviewed. Exam conducted with a truck crane operator present. Constitutional Appearance: He is obese. HENT Head: Normocephalic. Right Ear: External ear normal. Left Ear: External ear normal. Nose: Nose normal. Mouth/Throat: Mouth: Mucous membranes are dry. Pharynx: Oropharynx is clear. Eyes Conjunctiva/sclera: Conjunctivae normal. Cardiovascular Rate and Rhythm: Normal rate and regular rhythm. Pulses: Normal pulses. Heart sounds: Normal heart sounds. Pulmonary Effort: Pulmonary effort is normal. Comments: Decreased lung sounds right base with crackles. Abdominal General: Bowel sounds are normal. Musculoskeletal Cervical back: Normal range of motion. Right lower leg: Edema present. Comments: [place] Neurological General: No focal deficit present. Mental [...] and present management will be continued. #1 Chronic Diastolic (Congestive) Heart Failure (HCC) Assessment & Plan: [facility] [place] [facility] [place] [facility]. He is on continuous oxygen. He has agreed to see [facility]. A referral will be sent. Torsemide will be increased to 60 bid alternating with 60 mg/40 mg. Zaroxolyn 2.5 mg will be added. Orders: - Cardiovascular Disease - General cardiology consult (clinic); Future; Expected date: 01/30/2024 #2 Injury Scrotum Subsequent Assessment & Plan: This was initially an area of necrosis. [...] with a Mepitel one. Change daily. Other orders - metOLazone (ZAROXOLYN) 2.5 mg tablet; Take 1 tablet (2.5 mg total) by mouth daily., Starting 01/30/2024, Until Tue01/29/2025, Normal PATIENT EDUCATION Ready to learn, no [...] * Assessment & Plan Note - Arlette Ntah APRN, C.N.P. - 01/30/2024 6:01 PM CDT Associated Problem(s): Lesion Scrotum This was initially an area of necrosis. [...] secure with a Mepitel one. Change daily. * Assessment & Plan Note - Arlette Nath APRN, C.N.P. - 01/30/2024 2:20 PM CDT Associated Problem(s): Chronic Diastolic (Congestive) Heart Failure (HCC) He is slowly gaining [facility] [place] [facility]. He is on continuous oxygen. He has agreed to see [facility]. A referral will be sent. Torsemide will be increased to 60 bid alternating with 60 mg/40 mg. Zaroxolyn 2.5 mg will be added. documented in this encounter Plan of Treatment Upcoming Encounters Date Type Department Care Team (Late st Contact Info) Description 03/20/2024 9:00 AM CDT Appointment Department of Laboratory Medicine in [place], [place] [address] [place] [address] [address] Little M.D. [address] [place] [address] 03/20/2024 10:00 AM CDT Comprehensive Visit Department of Cardiovascular Diseases in [place], [place] [address] [place] [address] Aubrey Little M.D. [address] [place] [address] 04/13/2024 11:00 AM CDT Comprehensive Visit Department of Neurology in [place], [place] [address] [place] [address] Florin Montes M.D. [address] [place] [address] Scheduled Referrals Name Type Priority Associated Diagnoses Order Schedule Cardiovascular Disease - General cardiology consult (clinic) Outpatient Referral Routine Chronic Diastolic (Congestive) Heart Failure (HCC) Expected: 01/30/2024, Expires: 05/01/2025 documented as of this encounter Visit Diagnoses Diagnosis Chronic Diastolic (Congestive) Heart Failure (HCC)- Primary Injury Scrotum Subsequent documented in this encounter Care Teams Director Of Infection Prevention Relationship Specialty Start Date End Date Arlette Nath APRN, C.N.P. [address] [place] [address] [place] [address] PCP - General Family Medicine 12/22/23 03/09/24 documented as of this encounter
--- OUTSIDE RECORDS SUMMARY | 2024-03-15 12:56 | XMS_ITS | Encounter Summary ---
Author Organization [facility] Address [address] [place] [address] Care Team Providers Care Svp Of Digital Name Role Phone Arlette Nath APRN C.N.PGeneva Primary Care Provider Reason for Referral * Outpatient (Routine) - Authorized Specialty Diagnoses / Procedures Referred By Contac t Referred To Contact Diagnoses 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 Rate 15-29 (HCC) Chronic Diastolic (Congestive) Heart Failure (HCC) Atrial Fibrillation Permanent (HCC) Procedures DX Chest AP or PA and Lateral 2 Views Aubrey Little M.D. 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 [address] [place] [address] [facility] Region Referral ID Status Reason Start Date Expiration Date V isits Requested Visits Authorized [id number] Authorized 01/30/2024 01/29/2025 1 1 Encounter Details Date Type Department Care Team (Late st Contact Info) Description 01/30/2024 Orders Only Department of Cardiovascular Diseases in [place], [place] [address] [address] Aubrey Little M.D. 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 [address] [place] [address] 03/20/2024 10:00 AM CDT Comprehensive Visit Department of Cardiovascular Diseases in [place], [place] [address] [address] Aubrey Little M.D. [address] [place] [phone] 04/13/2024 11:00 AM CDT Comprehensive Visit Department of Neurology in [place], [place] [address] [address] Florin Montes M.D. 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 Rate 15-29 (HCC) Chronic Diastolic (Congestive) Heart Failure (HCC) Atrial Fibrillation Permanent (HCC) Expected: 02/01/2024, Expires: 01/29/2025 NT-Pro B-Type Natriuretic Peptide (BNP) Lab Routine 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 Rate 15-29 (HCC) Chronic Diastolic (Congestive) Heart Failure (HCC) Atrial Fibrillation Permanent (HCC) 1 Occurrences starting 01/30/2024 until 05/01/2025 ECG 12 Lead ECG Routine 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 Rate 15-29 (HCC) Chronic Diastolic (Congestive) Heart Failure (HCC) Atrial Fibrillation Permanent (HCC) 1 Occurrences starting 01/30/2024 until 05/01/2025 DX Chest AP or PA and Lateral 2 Views Imaging RAD - Routine (most inpatients and all outpatients) 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 [address] [place] [address] [place] [address] PCP - General Family Medicine 12/22/23 03/09/24 documented as of this encounter
--- OUTSIDE RECORDS SUMMARY | 2024-03-15 12:56 | XMS_ITS | Encounter Summary ---
Author Organization [facility] Address [address] [place] [address] Care Team Providers Care Real Estate Officer Name Role Phone Arlette Nath APRN, C.N.P. Primary Care Provider Reason for Visit * Appointment Request (Routine) - Closed Specialty Diagnoses / Procedures Referred By Conthardy t Referred To Contact [facility] Referral ID Status Reason Start Date Expiration Date Visits Re quested Visits Authorized [id number] Closed 02/03/2024 02/02/2025 1 1 Encounter Details Date Type Department Care Team (Latest Contact Info) Description 02/06/2024 10:00 AM CDT External Outreach Senior Services in [facility] [address] [address] Arlette Nath APRN, C.N.P. [address] [place] [address] Injury Scrotum Subsequent (Primary Dx); Chronic Diastolic [...] Sign Reading Time Taken Comments Blood Pressure 134/75 02/06/2024 10:42 AM CDT Pulse 91 02/06/2024 10:42 AM CDT Temperature 36.7 ??C (98 ??F) 02/06/2024 10:42 AM CDT Respiratory Rate 20 02/06/2024 10:42 AM CDT Oxygen Saturation 96% 02/06/2024 10:42 AM CDT Inhaled Oxygen Concentration - - Weight - - Height - - Body Mass Index - - documented in this encounter Progress Notes * Arlette Nath APRN, C.N.P. - 02/06/2024 10:00 AM CDT CHIEF COMPLAINT / REASON FOR VISIT [facility] Follow Up Visit Visit Type: In Person: Face to Face SUBJECTIVE HISTORY OF PRESENT ILLNESS Today's narrative history (obtained from Patient and Nursing): He is seen today on wound rounds with Fili Corea RN nurse manager room The following medical problems were actively reviewed (including updating overview sections as necessary) and addressed as part of today's visit: #1 Injury Scrotum Subsequent Overview: Posterior scrotal wound. #2 Chronic Diastolic (Congestive) Heart Failure (HCC) [...] in this note, otherwise negative. OBJECTIVE BP 134/75 Pulse 91 Temp 36.7 ??C Resp 20 SpO2 96% PHYSICAL EXAM Vitals and nursing note reviewed. Constitutional Appearance: Normal appearance. HENT Head: Normocephalic and atraumatic. Right Ear: [...] of motion. Right lower leg: Edema present. Skin General: Skin is warm. Comments: See Assessment and plan below. Neurological General: No focal deficit present. Mental Status: He is alert. Mental status [...] and present management will be continued. #1 Injury Scrotum Subsequent Assessment & Plan: The wound measures 2.8 cm x 1.4 x superficial, 10 % slough with epiboly on the proximal edge. Woundwas cleansed with wound wash and dried with gauze. Silver calcium alginate was cut to fit the wound. Covered with gauze and Mepitel one. #2 Chronic Diastolic (Congestive) Heart Failure (HCC) Assessment & Plan: He has stabilized on the current regimen. His creat was 3.2 today with eGFR at 20. Metolazone will be given 30 minutes before the torsemide. Change torsemide to 40 mg bid. CMP in oneweek. PATIENT EDUCATION Ready to learn, no apparent [...] Note - Arlette Nath APRN, C.N.P. - 02/06/2024 4:19 PM CDT Associated Problem(s): Chronic Diastolic (Congestive) Heart Failure (HCC) He has stabilized on the current regimen. His creat was 3.2 today with eGFR at 20. Metolazone will be given 30 minutes before the torsemide. Change torsemide to 40 mg bid. CMP in oneweek. * Assessment & Plan Note - Arlette Nath APRN, C.N.P. - 02/06/2024 4:10 PM CDT Associated Problem(s): Lesion Scrotum The wound measures 2.8 cm x 1.4 x superficial, 10 % slough with epiboly on the proximal edge. Woundwas cleansed with wound wash and dried with gauze. Silver calcium alginate was cut to fit the wound. Covered with gauze and Mepitel one. documented in this encounter Plan of Treatment Upcoming Encounters Date Type Department Care Team (Late st Contact Info) Description 03/20/2024 9:00 AM CDT Appointment Department of Laboratory Medicine in [place], [place] [address] [phone] Aubrey Little M.D. [address] [place] [address] 03/20/2024 10:00 AM CDT Comprehensive Visit Department of Cardiovascular Diseases in [place], [place] [address] [address] Aubrey Little M.D. [address] [place] [address] 04/13/2024 11:00 AM CDT Comprehensive Visit Department of Neurology in [place], [place] [address] [phone] Florin Montes M.D. [address] [place] [phone] documented as of this encounter Visit Diagnoses Diagnosis Injury Scrotum Subsequent- Primary Chronic Diastolic (Congestive) Heart Failure (HCC) documented in this encounter Care Teams Real Estate Officer Relationship Specialty Start Date End Date Arlette Nath APRN, C.N.P. [address] [place], [place] [address] [address] PCP - General Family Medicine 12/22/23 03/09/24 documented as of this encounter
--- OUTSIDE RECORDS SUMMARY | 2024-03-15 12:56 | XMS_ITS | Encounter Summary ---
Author Organization [facility] Address [address] [place] [address] Care Team Providers Care Dietetic Technician Name Role Phone Arlette Nath APRN, C.NArsh Primary Care Provider Reason for Visit * Reason Comments Routine Care Home Visit Follow-up hos pitalization * Appointment Request (Routine) - Closed Specialty Diagnoses / Procedures Referred By Armaan t Referred To Contact Community Internal Medicine Referral ID Status Reason Start Date Expiration Date Visits Re quested Visits Authorized [id number] Closed 01/13/2024 01/12/2025 1 1 Encounter Details Date Type Department Care Team (Latest Contact Info) Description 01/19/2024 10:00 AM CDT External Outreach Senior Services in [facility] [address] [phone] Victorina Cao M.D. 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 Use Of Insulin Active (HCC); Paralysis Diaphragm; Transplant Renal (HCC); Tremor; Other Retention Of Urine Social History Tobacco Use Types Packs/Day Years [...] Sign Reading Time Taken Comments Blood Pressure 128/70 01/19/2024 6:54 PM CDT Pulse 101 01/19/2024 6:54 PM CDT Temperature 37 ??C (98.6 ??F) 01/19/2024 6:54 PM CDT Respiratory Rate 20 01/19/2024 6:54 PM CDT Oxygen Saturation 98% 01/19/2024 6:54 PM CDT 2 L Inhaled Oxygen Concentration - - Weight 127 kg (279 lb 6.4 oz) 01/19/2024 6:54 PM CDT Height - - Body Mass Index 37.89 07/04/2023 6:11 PM VIDEO GAME MAKER documented in this encounter Patient Instructions * Patient Instructions* Victorina Dowell M.D. - 01/19/2024 10:00 AM CDT Add magnesium to labs scheduled for 531 Postvoid residual b.i.d. and straight cath for volume greater than 200 cc Discontinue scheduled DuoNeb DuoNeb q.i.d. PRN Discontinue insulin Lantus 5 units in the a.m. Increase torsemide to 60 mg b.i.d. for 5 days and then resume 60 mg a.m. 40 mg afternoon Discontinue morphine documented in this encounter H&P Notes * Victorina Dowell M.D. - 01/19/2024 10:00 AM CDT CHIEF COMPLAINT / [facility] Ad[facility] Visit Visit Type: In Person: Face to Face Living situation prior to admission: Home with partner. Most recently rehabbing at SNF. Primary care provider: Dr. Forbes SUBJECTIVE HISTORY OF PRESENT ILLNESS Today's narrative history (obtained from Patient and Nursing): Diego Guthrie was admitted to [facility] on 12/14/2023 from [facility]. Patient was admitted there on 01/04 from [facility] for evaluation and management of respiratory failure with hypoxia and hypercapnia. Found to have acute on chronic congestive heart failure and diuresed 54 lb. The following medications were discontinued: Amlodipine, carvedilol, metolazone, potassium, prednisone. Hospital course was complicated by: Acute kidney injury with creatinine peaking at 3.86. Dialysis discussed and declined. Urinary retention improved with Gibbs catheter. Urinary tract infection with Serratia. Treated with Hyperkalemia with potassium 6.5 treated with diuresis and Kayexalate. The past medical history is significant for recent hospitalization with SNF stay for hypoxic respiratory failure in the setting of pulmonary edema and heart failure exacerbation, diabetes, urinary retention, renal insufficiency, low platelets, renal transplant 2013, chronic diastolic congestive heart failure, left below-knee amputation. Since admission to [facility], his weight has increase about 6 lb. He feels like he is gaining weight. Although blood sugars are somewhat up and down, they are lower than they were previously. The following medical problems were actively reviewed (including updating overview sections as necessary) and addressed as part of today's visit: Diagnosis Overview 1. 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 Apnea Sleep Obstructive Using the BiPAP with sleep in the setting of diaphragmatic paralysis 3. Atrial Fibrillation Permanent (HCC) Has had difficulty with bradycardia and has switched between carvedilol and nifedipine. Currently on carvedilol. 4. Chronic Diastolic (Congestive) Heart Failure (HCC) Chronic heart failure with preserved ejection fraction. [...] 2023 and diuresed 35 to 54 lb. 5. 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 Rate 15-29 ([facility]) In the setting of renal transplant. Most recent GFR 28. Follows with renal transplant at [facility]. Lab Results Component Value Date CREATININE 2.89 (H) 01/20/2024 6. Chronic Respiratory Failure ([facility]) New chronic oxygen requirements at 3 L per nasal cannula since November 2023. [place] multifactorial including acute on chronic congestive heart failure and right diaphragm paralysis. 7. Depression Major Recurrent Moderate ([facility]) On escitalopram 8. Diabetes Mellitus Type 2 With Diabetic Neuropathy ([facility]) Currently on long and short-acting insulins. 9. Gastroesophageal Reflux Disease Without Esophagitis Managed on protonix 10. Hyperlipidemia On rosuvastatin in the setting of diabetes. 11. Hypertension Secondary To Other Renal Disorders Treatment: Amlodipine, torsemide and carvedilol Goal: 110-130 12. Hypothyroidism On Replacement Managed on levothyroxine 100 mcg daily Lab Results Component Value Date TSH 4.86 (H) 10/26/2023 13. 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 14. Insomnia Latent sleep initiation. 15. Senior Living (Current) Anticoagulant Treatment On apixaban in the setting of atrial fibrillation. 16. 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 17. Other Retention Of Urine Gibbs catheter placed during hospitalization December 2023. 18. 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 Contributing to chronic respiratory failure Need for BiPAP with sleep 19. Transplant Renal ([facility]) Renal transplant 02/04/2014 to address end-stage renal disease on dialysis Follows with [facility]. 20. Tremor 21. Weakness General - Primary This is multifactorial and related to recent hospitalization, chronic respiratory failure, deconditioning, and immunodeficiency. Past medical/surgical history, social history, medications, and allergies were reviewed and are visible in the Encounter view. Review of systems was performed, as allowable by patient's cognitive status, and incorporating collateral history if applicable. Relevant positives are noted elsewhere in this note, otherwise negative. Code status: Full code Diet: Consistent carbohydrate, cardiac, renal diet, regular texture, regular consistency Activity: Physical therapy, occupational therapy Ambulation: Assist of 1 with walker ADLs: Assist of 1 Transfer: Assist of 1 Recent Falls: None at facility Medication list reviewed and updated: yes Medication Concerns: Review blood sugars. He does not feel a need for nebs as they were prescribed for shortness of breath before hospitalization. Cognition: BIMS 15 Skin: I was not told of any skin concerns. After our visit, a scrotal wound was addressed by HOME MAKER. Bladder: Gibbs catheter placed during hospitalization Bowel: Occasionally incontinent OBJECTIVE BP 128/70 Pulse 101 Temp 37 ??C Resp 20 Wt 127 kg SpO2 98% Comment: 2 L BMI 37.89 kg/m?? PHYSICAL EXAM GENERAL: Patient is alert and oriented. Patient is a good historian. He has seated in a wheelchair wearing oxygen by nasal cannula. NECK: Without adenopathy. HEART: Irregular LUNGS: Diminished but clear. ABDOMEN: Normal bowel sounds. EXTREMITIES: 1 to 2+ lower extremity edema. SKIN: No rashes or unusual lesions on exposed skin. ASSESSMENT / PLAN Full background details regarding problems addressed at today's visit can be found in the HPI. Pertinent changes to the care plan based on today's evaluation are explicitly discussed below, otherwiselisted problems are stable and present management will be continued. #1 Weakness General #2 Chronic Diastolic (Congestive) Heart Failure (HCC) Assessment & Plan: He is starting to add some weight back. Will increase his torsemide from 60 and 40 to 60 mg b.i.d. for 5 days and then resume previous dose. #3 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 Rate 15-29 ([facility]) Assessment & Plan: He adamantly declined consideration to dialysis while was hospitalized. I discussed this with him again and he continues to be adamant that he would never want dialysis. #4 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 ([facility]) #5 Apnea Sleep Obstructive #6 Atrial Fibrillation Permanent ([facility]) #7 Chronic Respiratory Failure ([facility]) Assessment & Plan: Orders are in place to wean oxygen as able. #8 Depression Major Recurrent Moderate ([facility]) #9 Diabetes Mellitus Type 2 With Diabetic Neuropathy ([facility]) Assessment & Plan: Current orders are for insulin Lantus 20 at HS and 5 in the morning. He has had some low daytime sugars. Will discontinue the 5 units in the morning. #10 Gastroesophageal Reflux Disease Without Esophagitis #11 Hyperlipidemia #12 Hypertension Secondary To Other Renal Disorders #13 Hypothyroidism On Replacement #14 Immunodeficiency Due To Conditions Classified Elsewhere ([facility]) #15 Insomnia #16 Field Technical Specialist (Current) Anticoagulant Treatment #17 Senior Living Use Of Insulin Active (HCC) #18 Paralysis Diaphragm #19 Transplant Renal ([facility]) #20 Tremor Assessment & Plan: He has bilateral resting tremor of his arms and occasional jerking of his trunk. Certainly contributed to by recent massive diuresis. Chemistries were checked on 01/16 and were unremarkable other than known renal insufficiency. Will repeat and add magnesium. May need neurology consult. #21 Other Retention Of Urine Assessment & Plan: He did not have a catheter previously but has had urethral stricture. Will DC Gibbs and trial voiding with orders to straight cath b.i.d. if bladder scan postvoid residual greater than 200 cc. #22 Disposition Planning This is a planned short-term fdc stay for rehabilitation. Patient plans to return to previous living situation at the completion of therapies. #23 Care Home Stay Justification Exam Current comorbidities, ADL need/level [...] orders, communicating orders to facility. Total time 55 minutes. documented in this encounter Miscellaneous Notes * Assessment & Plan Note - Victorina Dowell M.D. - 01/24/2024 7:35 PM CDTAssociated Problem(s): Chronic Respiratory Failure (HCC) Orders are in place to wean oxygen as able. * Assessment & Plan Note - Victorina Dowell M.D. - 01/24/2024 7:34 PM CDTAssociated Problem(s): Diabetes Mellitus Type 2 With Diabetic Neuropathy (HCC) Current orders are for insulin Lantus 20 at HS and 5 in the morning. He has had some low daytime sugars. Will discontinue the 5 units in the morning. * Assessment & Plan Note - Victorina Dowell M.D. - 01/24/2024 7:32 PM CDTAssociated Problem(s): Other Retention Of Urine He did not have a catheter previously but has had urethral stricture. Will DC Gibbs and trial voiding with orders to straight cath b.i.d. if bladder scan postvoid residual greater than 200 cc. * Assessment & Plan Note - Victorina Dowell M.D. - 01/24/2024 7:30 PM CDTAssociated Problem(s): 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 Rate 15-29 (HCC) He adamantly declined consideration to dialysis while was hospitalized. I discussed this with him again and he continues to be adamant that he would never want dialysis. * Assessment & Plan Note - Victorina Dowell M.D. - 01/24/2024 7:29 PM CDTAssociated Problem(s): Chronic Diastolic (Congestive) Heart Failure (HCC) He is starting to add some weight back. Will increase his torsemide from 60 and 40 to 60 mg b.i.d. for 5 days and then resume previous dose. * Assessment & Plan Note - Victorina Dowell M.D. - 01/24/2024 7:25 PM CDTAssociated Problem(s): Tremor He has bilateral resting tremor of his arms and occasional jerking of his trunk. Certainly contributed to by recent massive diuresis. Chemistries were checked on 01/16 and were unremarkable other than known renal insufficiency. Will repeat and add magnesium. May need neurology consult. documented in this encounter Plan of Treatment Upcoming Encounters Date Type Department Care Team (Late st Contact Info) Description 03/20/2024 9:00 AM CDT Appointment Department of Laboratory Medicine in [place], [place] [address] [phone] Aubrey Little M.D. 200 [place] [address] 03/20/2024 10:00 AM CDT Comprehensive Visit Department of Cardiovascular Diseases in [place], [place] [address] [phone] Aubrey Little M.D. 200 [place] [address] 04/13/2024 11:00 AM CDT Comprehensive Visit Department of Neurology in [place], [place] [address] [phone] Florin Montes M.D. [address] [phone] documented as of this encounter Visit Diagnoses Diagnosis Weakness General- Primary Chronic Diastolic (Congestive) Heart Failure (HCC) 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 Rate 15-29 (HCC) 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 (HCC) Apnea Sleep Obstructive Atrial Fibrillation Permanent (HCC) Chronic Respiratory Failure (HCC) Depression Major Recurrent Moderate (HCC) Diabetes Mellitus Type 2 With Diabetic Neuropathy (HCC) Gastroesophageal Reflux Disease Without Esophagitis Hyperlipidemia Hypertension Secondary To Other Renal Disorders Hypothyroidism On Replacement Immunodeficiency Due To Conditions Classified Elsewhere (HCC) Insomnia 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 [address] [place] [address] [place] [phone] PCP - General Family Medicine 12/22/23 03/09/24 documented as of this encounter
--- OUTSIDE RECORDS SUMMARY | 2024-03-15 12:56 | XMS_ITS | Encounter Summary ---
Author Organization [facility] Address [address] [place] [address] Care Team Providers Care Lead Software Development Engineer Name Role Phone Arlette Nath APRN, C.N.P. Primary Care Provider Reason for Visit * Appointment Request (Routine) - Closed Specialty Diagnoses / Procedures Referred By Conthardy t Referred To Contact [facility] Facility Referral ID Status Reason Start Date Expiration Date Visits Re quested Visits Authorized [id number] Closed 02/10/2024 02/09/2025 1 1 Encounter Details Date Type Department Care Team (Latest Contact Info) Description 02/13/2024 3:00 PM CDT External Outreach Senior Services in [facility] [address] [address] Arlette Naht APRN, C.N.P. [address] [place] [phone] Chronic Diastolic (Congestive) Heart Failure (HCC) (Primary Dx) Social History Tobacco Use Types [...] Sign Reading Time Taken Comments Blood Pressure 132/78 02/13/2024 9:42 AM CDT Pulse 75 02/13/2024 9:42 AM CDT Temperature 36.2 ??C (97.1 ??F) 02/13/2024 9:42 AM CD T Respiratory Rate 18 02/13/2024 9:42 AM CDT Oxygen Saturation 96% 02/13/2024 9:42 AM CDT Inhaled Oxygen Concentration - - Weight 133 kg (293 lb) 02/13/2024 9:42 AM CDT Height - - Body Mass Index 39.74 07/04/2023 6:11 PM SUPERVISOR SAMPLE PREPARATION documented in this encounter Patient Instructions * Patient Instructions* Arlette Nath APRN, C.N.P. - 02/13/2024 3:00 PM CDT ORDERS and INSTRUCTIONS: ED follow up visit done. Draw BMP on Tuesday. Electronically signed by: Arlette Nath APRN C.N.Vidal 02/13/24 2:15 PM CDT documented in this encounter Progress Notes * Arlette Nath APRN C.N.P. - 02/13/2024 3:00 PM CDT CHIEF COMPLAINT / REASON FOR VISIT [facility] ED Follow Up Visit Visit Type: In Person: Face to Face SUBJECTIVE HISTORY OF PRESENT ILLNESS Today's narrative history (obtained from Patient and Nursing): He is feeling better. Potassium level is normal. Creatinine is elevated, but less than before. He does not want dialysis. Nursing reports that he changed his code status to DNR/DNI from Full Code. The following medical problems were actively reviewed [...] kg 02/09/24 127 kg 01/30/24 131 kg Past medical/surgical history, social history, medications, and allergies were reviewed and are visible in the Encounter view. Review of systems was performed, as allowable by patient's cognitive status, and incorporating collateral history if applicable. Relevant positives are noted elsewhere in this note, otherwise negative. OBJECTIVE BP 132/78 Pulse 75 Temp 36.2 ??C Resp 18 Wt 133 kg SpO2 96% BMI 39.74 kg/m?? PHYSICAL EXAM Vitals and nursing note [...] Cervical back: Normal range of motion. Comments: Left BKA with prosthesis. Skin General: Skin is warm and dry. Capillary Refill: Capillary refill takes 2 to 3 seconds. Comments: Scrotal wound improving Neurological General: No focal deficit present. Mental [...] Failure (HCC) Assessment & Plan: He is on torsemide and metolazone. Renal [...] and diet. The reported eGFR is an estimationonly and is only applicable if the renal function is PATIENT EDUCATION Ready to learn, no apparent [...] & Plan Note - Arlette Nath APRN, Juan.N.P. - 02/13/2024 2:01 PM CDT Associated Problem(s): Chronic Diastolic (Congestive) Heart Failure (HCC) He is on torsemide and metolazone. Renal [...] and diet. The reported eGFR is an estimationonly and is only applicable if the renal function is documented in this encounter Plan of Treatment Upcoming Encounters Date Type Department Care Team (Late st Contact Info) Description 03/20/2024 9:00 AM CDT Appointment Department of Laboratory Medicine in [place], [place] [address] [phone] Aubrey Little M.D. 200 [place] [address] 03/20/2024 10:00 AM CDT Comprehensive Visit Department of Cardiovascular Diseases in [place], [place] [address] [phone] Aubrey Little M.D. 200 [place] [address] 04/13/2024 11:00 AM CDT Comprehensive Visit Department of Neurology in [place], [place] [address] [phone] Florin Montes M.D. [address] [place] [phone] documented as of this encounter Visit Diagnoses Diagnosis Chronic Diastolic (Congestive) Heart Failure (HCC)- Primary documented in this encounter Care Teams Lead Software Development Engineer Relationship Specialty Start Date End Date Arlette Nath APRN, C.N.P. [address] [place], [place] [address] [address] PCP - General Family Medicine 12/22/23 03/09/24 documented as of this encounter
--- OUTSIDE RECORDS SUMMARY | 2024-03-15 12:56 | XMS_ITS | Encounter Summary ---
Author Organization [facility] Address [address] [place] [address] Care Team Providers Care Business Support Liaison Name Role Phone Arlette Nath APRN C.N.PGeneva Primary Care Provider Reason for Visit * Reason Onset Date Comments Appt Request 01/24/2024 Encounter Details Date Type Department Care Team (Late st Contact Info) Description 01/24/2024 Clinical Communication Division of Community Internal Medicine, [facility], in [place], [place] [address] [place] [phone] Opal Piña Appt Request Social History Tobacco Use Types Packs/Day [...] CDT Appointment Department of Laboratory Medicine in [place], [place] [address] [place] [phone] [place] [phone] 03/20/2024 10:00 AM CDT Comprehensive Visit Department of Cardiovascular Diseases in [place], [place] [address], [place] [phone] Aubrey Little M.D. [address] [place] [address] 04/13/2024 11:00 AM CDT Comprehensive Visit Department of Neurology in [place], [place] [address] [place] [phone] Florin Montes M.D. [address] [place] [phone] documented as of this encounter Visit Diagnoses Not on filedocumented in this encounter Care Teams Business Support Liaison Relationship Specialty Start Date End Date Arlette Nath APRN, C.N.P. [address] [place] [phone] PCP - General Family Medicine 12/22/23 03/09/24 documented as of this encounter
--- OUTSIDE RECORDS SUMMARY | 2024-03-15 12:56 | XMS_ITS | Encounter Summary ---
Author Organization [facility] Address [address] [place] [address] Care Team Providers Care Logistic Manager Name Role Phone Arlette Nath APRN C.N.PGeneva Primary Care Provider Reason for Visit * Reason Comments Illness Encounter Details Date Type Department Care Team (Late st Contact Info) Description 02/10/2024 11:09 AM CDT - 02/10/2024 1:49 PM CDT Emergency [facility] [address] [place] [address] Hypokalemia (Primary Dx) Discharge Disposition: Home or Self Care Social [...] shortness of breath or wheezing. 01/08/2024 03/07/2024 carvediloL (COREG) 6.25 mg tablet Take 6.25 [...] 7 units Pharmacy select brand per patient insurance/preference. 01/24/2024 03/07/2024 ipratropium-albuteroL (DUONEB) 0.5-2.5 mg/3 mL [...] mouth at bedtime. 30 tablet 12/23/2023 03/07/2024 metOLazone (Zaroxolyn) 2.5 mg tablet Take 1 tablet (2.5 mg total) by mouth every other day. 30 tablet 5 02/09/2024 03/07/2024 miconazole (MICATIN) 2 % powderIndications:Sanjeev h Apply 1 Application topically 3 (three) times a day. Apply to groin rash area 3 times daily. 12/25/2023 03/07/2024 mycophenolate (CELLCEPT) 250 mg capsule Take 2 [...] 240 mL (8 ounces) of beverage. 03/07/2024 pregabalin (LYRICA) 150 mg capsule Take 1 capsule (150 mg total) by mouth at bedtime. 30 capsule 01/21/2024 02/17/2024 rosuvastatin (CRESTOR) 10 mg tablet Take 1 tablet (10 mg total) by mouth at bedtime. 30 tablet 07/11/2023 03/07/2024 sennosides (senna) 8.6 mg tablet Take 2 tablets (17.2 mg total) by mouth at bedtime. 60 tablet 12/23/2023 03/07/2024 tacrolimus (PROGRAF) 0.5 mg capsuleIndications:pr evention of [...] CDT Appointment Department of Laboratory Medicine in [place], [place] [address] [phone] Aubrey Little M.D. 200 [place] [address] 03/20/2024 10:00 AM CDT Comprehensive Visit Department of Cardiovascular Diseases in [place], [place] [address] [phone] uAbrey Little M.D. 200 [place] [address] 04/13/2024 11:00 AM CDT Comprehensive Visit Department of Neurology in [place], [place] [address] [phone] Florin Montes M.D. [address] [phone] documented as of this encounter Visit Diagnoses Diagnosis Hypokalemia- Primary documented in this encounter Care Teams Logistic Manager Relationship Specialty Start Date End Date Arlette Nath APRN, C.N.P. [address] [place] [phone] PCP - General Family Medicine 12/22/23 03/09/24 documented as of this encounter
--- OUTSIDE RECORDS SUMMARY | 2024-03-15 12:56 | XMS_ITS | Encounter Summary ---
Author Organization [facility] Address [address] [place] [id number] Care Team Providers Care Office Clerk Name Role Phone Arlette Nath Hal CLARKNGenevaPGeneva Primary Care Provider Reason for Referral * Medication Prior Authorization - Closed Specialty Diagnoses / Procedures Referred By Armaan howell Referred To Contact Manoj Davalos APRN, C.N.P., M.S.N. [address] [place] [phone] Referral ID Status Reason Start Date Expiration Date Visits Re quested Visits Authorized [id number] Closed 1 1 * Medication Prior Authorization - Closed Specialty Diagnoses / Procedures Referred By Armaan howell Referred To Contact Manoj Davalos APRN, C.N.P., M.S.N. [address] [place] [phone] Referral ID Status Reason Start Date Expiration Date Visits Re quested Visits Authorized [id number] Closed 1 1 * Medication Prior Authorization - Closed Specialty Diagnoses / Procedures Referred By Armaan howell Referred To Contact Manoj Davalos APRN, C.N.P., M.S.N. [address] [place] [phone] Referral ID Status Reason Start Date Expiration Date Visits Re quested Visits Authorized [id number] Closed 1 1 * Medication Prior Authorization - Closed Specialty Diagnoses / Procedures Referred By Armaan howell Referred To Contact Manoj Davalos APRN, C.N.P., M.S.N. 200 [place] [phone] Referral ID Status Reason Start Date Expiration Date Visits Re quested Visits Authorized [id number] Closed 1 1 * Outpatient (Routine) - Authorized Specialty Diagnoses / Procedures Referred By Armaan howell Referred To Contact Diagnoses Chronic Diastolic (Congestive) Heart Failure (HCC) Manoj Davalos APRN, C.N.P., M.S.N. [address] [place] [phone] Referral ID Status Reason Start Date Expiration Date Visits Requested Visits Authorized [id number] Authorized Continuity of Care 03/07/2024 09/06/2025 1 1 Reason for Visit * Reason Comments fpc discharge with in home PT / OT / nursing * Appointment Request (Routine) - Closed Specialty Diagnoses / Procedures Referred By Armaan howell Referred To Contact [facility] Referral ID Status Reason Start Date Expiration Date Visits Re quested Visits Authorized [id number] Closed 03/05/2024 03/05/2025 1 1 Encounter Details Date Type Department Care Team (Latest Contact Info) Description 03/06/2024 10:00 AM CDT External Outreach [facility] in [facility] [id number] [place] [phone] Manoj Davalos APRN, C.N.P., M.S.N. 200 [place] [phone] Chronic Diastolic (Congestive) Heart Failure (HCC) (Primary [...] Diabetes Mellitus Type 2 With Diabetic Neuropathy ([facility]); Edema; 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[facility]); Gastroesophageal Reflux Disease Without Esophagitis; Hypertension Secondary To Other Renal Disorders; Hypothyroidism On Replacement; Insomnia; Immunodeficiency Due To Conditions Classified Elsewhere ([facility]); Lesion Scrotum; Fdc (Current) Anticoagulant Treatment; Uke Operator Use Of Insulin Active ([facility]); Long Term 30 Day Certification Exam; Polyneuropathy; Transplant Renal (HCC); Tremor; Weakness General; Rash Social History Tobacco Use Types Packs/Day Years [...] 9.6 oz) 03/06/2024 9:03 PM CDT Height - - Body Mass Index 39.14 07/04/2023 6:11 PM CHECK SCALER documented in this encounter Progress Notes * Manoj Davalos APRN, C.N.P., M.S.N. - 03/06/2024 10:00 AM CDT Images from the original note were not included. CHIEF COMPLAINT / REASON FOR VISIT [facility] Discharge Visit Visit Type: In Person: Face to Face Living situation prior to admission: Home with partner. Most recently rehabbing at SNF. Primary care provider: Dr. Forbes SUBJECTIVE HISTORY OF PRESENT ILLNESS Cleveland Cortez is a 73-year-old male resident admitted to [facility]. Past medical history is significant for Diego Guthrie is a(n) 73 y.o. with a history of DM Type II, s/p left BKA, CKD s/p renal transplant in 2013 (currently stage 4 CKD), and chronic diastolic CHF. Patient was admitted to [facility] on 12/14/2023 from [facility]. Patient was admitted there on 01/04 from [facility] for evaluation and management of respiratory failure with hypoxia and hypercapnia. Found to have acute on chronic congestive heart failure and diuresed 54 lb. Today's narrative history (obtained from Patient, Nursing, and PT/OT)/SNF STAY: Patient is seen today for fpc discharge back home with in-home PT / OT /nursing. Patient stay at the fpc has been remarkable for ED visit to evaluate is normal labs and increasing right lower extremity edema. Then, patient's potassium level was 2.9 and potassium chloride supplement was administered and patient is sent back to the fpc. A rechecked of potassium level was ordered showing hypokalemia has resolved. Patient and nursing has no concerns. Nursing is requesting for oxygen supplement order. He endorsesadequate sleep at night, appetite, moving her bowel, have no urinary concerns at this time. Patientdenies headache, dizziness, lightheadedness, fever, chills, cough, wheezing, chest pain, and palpitation. Denies nausea, vomiting, and rated pain at 0/10. The following medications were discontinued: Amlodipine, carvedilol, metolazone, potassium, prednisone. Hospital course was complicated by: Acute kidney injury with creatinine peaking at 3.86. Dialysis discussed and declined. Urinary retention improved with Gibbs catheter. Urinary tract infection with Serratia. Treated with Hyperkalemia with potassium 6.5 treated with diuresis and Kayexalate. Since admission to [facility], his weight has increase about 6 lb. He feels like he is gaining weight. While the blood sugars are somewhat up and down, they are lower than they werepreviously. 02/24/2024: Neurology E consult done. PT/OT Patient has worked cooperatively with PT / OT. But, therapy is recommending in home PT / OT for safety. Also, patient will be supported per his significant other. ALL PRESCRIPTIONS SENT TO [facility] [place] The following medical problems were actively reviewed (including updating overview sections as necessary) and addressed as part of today's visit: Diagnosis Overview 1. 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 Anxiety Generalized Disorder On escitalopram. 3. Apnea Sleep Obstructive Using the BiPAP with sleep in the setting of diaphragmatic paralysis 4. 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 Rate 15-29 ([facility]) In the setting of renal transplant. Most recent GFR 28. Follows with renal transplant at [facility]. Lab Results Component Value Date CREATININE 3.72 (H) 02/16/2024 5. Depression Major Recurrent Moderate ([facility]) On escitalopram 6. Edema 4+ edema right leg. 7. 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 8. Hypertension Secondary To Other Renal Disorders Treatment: Amlodipine, torsemide and carvedilol Goal: 110-130 9. 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 10. Polyneuropathy Diabetic polyneuropathy on pregabalin to control symptoms. 11. Anemia Iron Deficiency Lab Results Component Value Date WBC 3.1 (L) 01/17/2024 HGB 8.8 (L) 01/17/2024 HCT 29.6 (L) 01/17/2024 MCV 83 01/17/2024 PLT 94 (L) 01/17/2024 12. Transplant Renal ([facility]) Renal transplant 02/04/2014 to address end-stage renal disease on dialysis Follows with [facility]. 13. Chronic Diastolic (Congestive) Heart Failure ([facility]) - Primary Chronic heart failure with preserved ejection fraction. [...] kg 02/16/24 127 kg 02/13/24 133 kg 14. Diabetes Mellitus Type 2 Ulcer Foot ([facility]) Lab Results Component Value Date HGBA1C 8.4 (H) 02/28/2024 Goal HgbA1C: <8.0 Oral: None Injectable: Insulin lispro and insulin glargine BG check frequency: 4 times daily 15. Uke Operator Use Of Insulin Active ([facility]) He uses long and short-acting insulins. 16. Weakness General This is multifactorial and related to recent hospitalization, chronic respiratory failure, deconditioning, and immunodeficiency. 17. Fdc (Current) Anticoagulant Treatment On apixaban in the setting of atrial fibrillation. 18. Hypothyroidism On Replacement Managed on levothyroxine 100 mcg daily. Lab Results Component Value Date TSH 3.69 01/26/2024 19. Atrial Fibrillation Permanent ([facility]) Has had difficulty with bradycardia and carvedilol has been discontinued. 20. Diabetes Mellitus Type 2 With Diabetic Neuropathy ([facility]) Currently on long and short-acting insulins. 21. Gastroesophageal Reflux Disease Without Esophagitis Managed on protonix 22. Insomnia Latent sleep initiation. 23. Advanced Care Planning DNR/DNI 24. Chronic Respiratory Failure ([facility]) New chronic oxygen requirements at 3 L per nasal cannula since November 2023. [place] multifactorial including acute on chronic congestive heart failure and right diaphragm paralysis. 25. Tremor 26. Lesion Scrotum Posterior scrotal wound. 27. Long Term 30 Day Certification Exam SNF Recertification History per: Staff and patient [...] [Rehab and appropriate placement to be determined] Past medical/surgical history, social history, medications, and allergies were reviewed and are visible in the Encounter view. Review of systems was performed, as allowable by patient's cognitive status, and incorporating collateral history if applicable. Relevant positives are noted elsewhere in this note, otherwise negative. OBJECTIVE BP 144/71 Pulse 75 Temp 36.4 ??C Resp 16 Wt 131 kg SpO2 96% Comment: ra BMI 39.14 kg/m?? PHYSICAL EXAM Constitutional General: He is not in acute distress. Patient is a good historian. He has seated in a wheelchair. Appearance: Normal appearance. Comments: HENT Right Ear: External ear normal. Left Ear: External ear normal. Mouth: Mucous membranes are moist. Cardiovascular Rate and Rhythm: Normal rate and regular rhythm. Heart sounds: Normal heart sounds. Pulmonary Effort: Pulmonary effort is normal. Breath sounds: Normal breath sounds. Abdominal General: Bowel sounds are normal. Palpations: Abdomen is soft. Musculoskeletal Right lower leg: +1 edema. Left lower leg: left lower extremity prosthetic in place. Skin General: Skin is warm and dry. [...] Heart Failure (HCC) Assessment & Plan: Continue hydralazine 40 mg, isosorbide 40 mg daily,torsemide 40 mg bid and potassium 40 meq daily. Improved right lower extremity edema. Orders: - Non-[facility] referral - DME Oxygen; DME Order - for details see Order Report, DME No Print - DME Medical Justification: Oxygen #2 Advanced Care Planning #3 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 ([facility]) Assessment & Plan: Prosthesis fits well. Ambulate with left lower extremity with walker. #4 Anemia Iron Deficiency Assessment & Plan: Asymptomatic. We will have PCP to follow-up. #5 Anxiety Generalized Disorder Assessment & Plan: Patient was in good mood, singing very loud verbalized he is happy discharging back home. #6 Apnea Sleep Obstructive Assessment & Plan: Continue CPAP #7 Atrial Fibrillation Permanent ([facility]) Assessment & Plan: On manager long term care anticoagulation with apixaban 2.5 mg bid #8 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 Rate 15-29 ([facility]) Assessment & Plan: He adamantly declined consideration to dialysis while was hospitalized. I discussed this with him again and he continues to be adamant that he would never want dialysis. #9 Chronic Respiratory Failure ([facility]) Assessment & Plan: On continuous oxygen with nasal cannula 2LNC. Oxygen saturations chronically are low when he is active ranging from 81% to 89 %. #10 Depression Major Recurrent Moderate ([facility]) Assessment & Plan: Patient is a 90 excited mood due to discharging back home to his significant other. #11 Diabetes Mellitus Type 2 Ulcer Foot ([facility]) Assessment & Plan: Blood sugar fairly controlled ranging from home 157-286. Will have PCP follow closely post discharge. #12 Diabetes Mellitus Type 2 With Diabetic Neuropathy ([facility]) #13 Edema Assessment & Plan: Right lower extremity +1 edema. Great improvement post diuretics adjustment. #14 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[facility]) Assessment & Plan: Intact no longer being used for dialysis. #15 Gastroesophageal Reflux Disease Without Esophagitis Assessment & Plan: Asymptomatic. Continue Protonix. #16 Hypertension Secondary To Other Renal Disorders Assessment & Plan: Blood pressure fluctuates with recent numbers much better. We will have PCP to follow-up on elevated blood pressure. #17 Hypothyroidism On Replacement Assessment & Plan: Continue medication #18 Insomnia Assessment & Plan: Patient verbalized adequate sleep with melatonin at bedtime. #19 Immunodeficiency Due To Conditions Classified Elsewhere ([facility]) Assessment & Plan: He will need to keep follow up appointments with his transplant team. #20 Lesion Scrotum Assessment & Plan: Nursing reports that wound is healing well. Discharging home with in-home nursing for wound dressing. #21 Fdc (Current) Anticoagulant Treatment #22 Fdc Use Of Insulin Active ([facility]) #23 Long Term 30 Day Certification Exam Assessment & Plan: Patient discharging home to partner with in-home PT/ OT /nursing. #24 Polyneuropathy Assessment & Plan: Continue pregabalin #25 Transplant Renal (HCC) #26 Tremor Assessment & Plan: He has bilateral resting tremor of his arms and occasional jerking of his trunk. Certainly contributed to by recent massive diuresis. Chemistries were checked on 01/16 and were unremarkable other than known renal insufficiency. See e- neurology consult. #27 Weakness General Assessment & Plan: This is expected to improve with therapies. #28 Rash - miconazole 2 % powder; Apply 1 Application topically 3 (three) times a day. Apply to groin rash area 3 times daily., Starting Tue03/07/2024, Until Tue04/06/2024, Normal Other orders - acetaminophen (TylenoL) 500 mg tablet; Take 2 tablets (1,000 mg total) by mouth every 6 (six) hours., Starting Tue03/07/2024, Until Tue04/06/2024, Normal - albuterol 90 mcg/actuation inhaler; Inhale 2 puffs every 6 (six) hours as needed for shortness ofbreath or wheezing., Starting Tue03/07/2024, Until Tue04/06/2024 at 2359, NormalMay substitute generic Proair, generic Ventolin or generic Proventil as appropriate for patient or insurance preference - escitalopram (Lexapro) 20 mg tablet; Take 1 tablet (20 mg total) by mouth daily., Starting Tue03/07/2024, Until Tue04/06/2024, Normal - hydrALAZINE (Apresoline) 10 mg tablet; Take 4 tablets (40 mg total) by mouth every 8 (eight) hours., Starting Tue03/07/2024, Until Tue04/06/2024, Normal - insulin aspart U-100 (NovoLOG FlexPen) 100 unit/mL (3 mL) injection; Inject 1- 6 Units under the skin 3 (three) times a day with meals. Sliding scale, Starting Tue03/07/2024, Until Tue04/06/2024, Normal - insulin glargine-yfgn (Semglee) 100 unit/mL (3 mL) injection; Inject 20 Units under the skin at bedtime., Starting Tue03/07/2024, Until Tue04/06/2024, Normal - ipratropium-albuteroL (DuoNeb) 0.5-2.5 mg/3 mL nebulizer solution; Inhale 3 mL by nebulization every 6 (six) hours as needed for wheezing., Starting Tue03/07/2024, Until Tue04/06/2024 at 2359, Normal - isosorbide dinitrate (IsordiL) 40 mg tablet; Take 1 tablet (40 mg total) by mouth 3 (three) timesa day., Starting Tue03/07/2024, Until Tue04/06/2024, Normal - levothyroxine 100 mcg tablet; Take 1 tablet (100 mcg total) by mouth daily., Starting Tue03/07/2024, Until Tue04/06/2024, Normal - melatonin 3 mg tablet; Take 1 tablet (3 mg total) by mouth at bedtime., Starting Tue03/07/2024, Until Tue04/06/2024, Normal - mycophenolate (CellCept) 250 mg capsule; Take 2 capsules (500 mg total) by mouth every 12 (twelve) hours., Starting Tue03/07/2024, Until Tue04/06/2024, Normal - pantoprazole (Protonix) 40 mg EC tablet; Take 1 tablet (40 mg total) by mouth daily before morning meal., Starting Tue03/07/2024, Until Tue04/06/2024, Normal - polyethylene glycol (Miralax) 17 gram/dose oral powder; Take 17 g by mouth daily. Dissolve each 17 g dose in 240 mL (8 ounces) of beverage., Starting Tue03/07/2024, Normal - pregabalin (Lyrica) 150 mg capsule; Take 1 capsule (150 mg total) by mouth at bedtime., Starting Tue03/07/2024, Until Tue04/06/2024, Normal - rosuvastatin (Crestor) 10 mg tablet; Take 1 tablet (10 mg total) by mouth at bedtime., Starting Tue03/07/2024, Until Tue04/06/2024, Normal - sennosides (senna) 8.6 mg tablet; Take 2 tablets (17.2 mg total) by mouth at bedtime., Starting Tue03/07/2024, Until Tue04/06/2024, Normal - tacrolimus (Prograf) 0.5 mg capsule; Take 1 capsule (0.5 mg total) by mouth 2 (two) times a day Indications: prevent kidney transplant rejection., Starting Tue03/07/2024, Until Tue04/06/2024, NormalFill only with AB rated generics of brand name Prograf; Do not use i-marker generic tacrolimus products. - tamsulosin (Flomax) 0.4 mg 24 hr capsule; Take 1 capsule (0.4 mg total) by mouth 2 (two) times a day., Starting Tue03/07/2024, Until Tue04/06/2024, Normal - torsemide 40 mg tablet; Take 40 mg by mouth 2 (two) times a day Indications: accumulation of fluid resulting from chronic heart failure., Starting Tue03/07/2024, Until Tue04/06/2024, Normal #28 Debility and functional decline In home therapy recommended. Yes. Physical therapy recommended with the goal to promote the patient's ability to move, reduce pain, restore function, and prevent disability. Occupational therapy recommended with the goal to enable people to participate in the activities ofeveryday life. And nursing Homebound status: Yes - there exists a normal inability to leave home and, consequently, leaving his or her home requires a considerable and taxing effort. If the patient does in fact leave the home,the absences from the home are infrequent or for periods of relatively short duration and most often for the purpose of receiving medical treatment. #29 Disposition Follow up: [facility] clinic if applicable. PCP: Jasmina Chinchilla M.D. PCP - General Since 05/13/2023 Other: Medications provided for dismissal: DME ordered: oxygen supplement Physician order sheet signed. PATIENT EDUCATION Ready to learn, no apparent [...] patient, family, and/or facility staff. Total time 55 minutes. documented in this encounter Miscellaneous Notes * Assessment & Plan Note - Manoj Davalos APRN, C.N.P., M.S.N. - 03/07/2024 9:27 PM CDTAssociated Problem(s): Weakness General This is expected to improve with therapies. * Assessment & Plan Note - Manoj Davalos APRN, C.N.P., M.S.N. - 03/07/2024 9:27 PM CDTAssociated Problem(s): Tremor He has bilateral resting tremor of his arms and occasional jerking of his trunk. Certainly contributed to by recent massive diuresis. Chemistries were checked on 01/16 and were unremarkable other than known renal insufficiency. See e- neurology consult. * Assessment & Plan Note - Manoj Davalos APRN, C.N.P., M.S.N. - 03/07/2024 9:25 PM CDTAssociated Problem(s): Polyneuropathy Continue pregabalin * Assessment & Plan Note - Manoj Davalos APRN, C.N.P., M.S.N. - 03/07/2024 9:25 PM CDTAssociated Problem(s): Long Term 30 Day Certification Exam Patient discharging home to partner with in-home PT/ OT /nursing. * Assessment & Plan Note - Manoj Davalos APRN, C.NArsh, M.S.N. - 03/07/2024 9:23 PM CDTAssociated Problem(s): Lesion Scrotum Nursing reports that wound is healing well. Discharging home with in-home nursing for wound dressing. * Assessment & Plan Note - Manoj Davalos APRN, C.NArsh, M.S.N. - 03/07/2024 9:23 PM CDTAssociated Problem(s): Immunodeficiency Due To Conditions Classified Elsewhere (HCC) He will need to keep follow up appointments with his transplant team. * Assessment & Plan Note - Manoj Davalos APRN, C.NArsh, M.S.N. - 03/07/2024 9:23 PM CDTAssociated Problem(s): Insomnia Patient verbalized adequate sleep with melatonin at bedtime. * Assessment & Plan Note - Manoj Davalos APRN, C.NArsh, M.S.N. - 03/07/2024 9:22 PM CDTAssociated Problem(s): Hypothyroidism On Replacement Continue medication * Assessment & Plan Note - Manoj Davalos APRN, C.NArsh, M.S.N. - 03/07/2024 9:21 PM CDTAssociated Problem(s): Hypertension Secondary To Other Renal Disorders Images from the original note were not included. Blood pressure fluctuates with recent numbers much better. We will have PCP to follow-up on elevated blood pressure. * Assessment & Plan Note - Manoj Davalos APRN, C.NArsh, M.S.N. - 03/07/2024 9:20 PM CDTAssociated Problem(s): Gastroesophageal Reflux Disease Without Esophagitis Asymptomatic. Continue Protonix. * Assessment & Plan Note - Manoj Davalos APRN, C.NGenevaPGeneva, M.S.N. - 03/07/2024 9:20 PM CDTAssociated Problem(s): 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HCC) Intact no longer being used for dialysis. * Assessment & Plan Note - Manoj Davalos APRN, C.N.PGeneva, M.S.N. - 03/07/2024 9:19 PM CDTAssociated Problem(s): Edema Right lower extremity +1 edema. Great improvement post diuretics adjustment. * Assessment & Plan Note - Manoj Davalos APRN, C.N.P., M.S.N. - 03/07/2024 9:19 PM CDTAssociated Problem(s): 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) Blood sugar fairly controlled ranging from home 157-286. Will have PCP follow closely post discharge. * Assessment & Plan Note - Manoj Davalos APRN, C.N.P., M.S.N. - 03/07/2024 9:17 PM CDTAssociated Problem(s): Depression Major Recurrent Moderate (HCC) Patient is a 90 excited mood due to discharging back home to his significant other. * Assessment & Plan Note - Manoj Davalos APRN, C.N.P., M.S.N. - 03/07/2024 9:16 PM CDTAssociated Problem(s): Chronic Respiratory Failure (HCC) On continuous oxygen with nasal cannula 2LNC. Oxygen saturations chronically are low when he is active ranging from 81% to 89 %. * Assessment & Plan Note - Manoj Davalos APRN, C.N.P., M.S.N. - 03/07/2024 9:14 PM CDTAssociated Problem(s): 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 Rate 15-29 (HCC) He adamantly declined consideration to dialysis while was hospitalized. I discussed this with him again and he continues to be adamant that he would never want dialysis. * Assessment & Plan Note - Manoj Davalos APRN, C.NArsh, M.S.N. - 03/07/2024 9:13 PM CDTAssociated Problem(s): Chronic Diastolic (Congestive) Heart Failure (HCC) Continue hydralazine 40 mg, isosorbide 40 mg daily,torsemide 40 mg bid and potassium 40 meq daily. Improved right lower extremity edema. * Assessment & Plan Note - Manoj Davalos APRN, C.NArsh, M.S.N. - 03/07/2024 9:12 PM CDTAssociated Problem(s): Atrial Fibrillation Permanent (HCC) On fpc anticoagulation with apixaban 2.5 mg bid * Assessment & Plan Note - Manoj Davalos APRN, C.NArsh, M.S.N. - 03/07/2024 9:11 PM CDTAssociated Problem(s): Apnea Sleep Obstructive Continue CPAP * Assessment & Plan Note - Manoj Davalos APRN, C.N.Vidal, M.S.N. - 03/07/2024 9:11 PM CDTAssociated Problem(s): Anxiety Generalized Disorder Patient was in good mood, singing very loud verbalized he is happy discharging back home. * Assessment & Plan Note - Manoj Davalos APRN, C.N.P., M.S.N. - 03/07/2024 9:10 PM CDTAssociated Problem(s): Anemia Iron Deficiency Asymptomatic. We will have PCP to follow-up. * Assessment & Plan Note - Manoj Davalos APRN, C.N.P., M.S.N. - 03/07/2024 9:09 PM CDTAssociated Problem(s): 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 (HCC) Prosthesis fits well. Ambulate with left lower extremity with walker. documented in this encounter Plan of Treatment Upcoming Encounters Date Type Department Care Team (Late st Contact Info) Description 03/20/2024 9:00 AM CDT Appointment Department of Laboratory Medicine in [place], [place] [address] [place] [address] [place] [phone] 03/20/2024 10:00 AM CDT Comprehensive Visit Department of Cardiovascular Diseases in [place], [place] [address] [place] [phone] Aubrey Little M.D. [address] [place] [address] 04/13/2024 11:00 AM CDT Comprehensive Visit Department of Neurology in [place], [place] [address] [place] [phone] Florin Montes M.D. [address] [place] [phone] documented as of this encounter Visit Diagnoses Diagnosis Chronic Diastolic (Congestive) Heart Failure (HCC)- Primary Advanced Care Planning 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 (HCC) Anemia Iron Deficiency Anxiety Generalized Disorder Apnea Sleep Obstructive Atrial Fibrillation Permanent (HCC) 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 Rate 15-29 (HCC) Chronic Respiratory Failure (HCC) Depression Major Recurrent Moderate (HCC) 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) Diabetes Mellitus Type 2 With Diabetic Neuropathy (HCC) Edema 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HCC) Gastroesophageal Reflux Disease Without Esophagitis Hypertension Secondary To Other Renal Disorders Hypothyroidism On Replacement Insomnia 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 [address] [place] [address] [place] [phone] PCP - General Family Medicine 12/22/23 03/09/24 documented as of this encounter
--- OUTSIDE RECORDS SUMMARY | 2024-03-15 12:56 | XMS_ITS | Encounter Summary ---
Author Organization [facility] Address [address] [place] [address] Care Team Providers Care Manager Review Name Role Phone Arlette Nath EDUARDO, C.N.P. Primary Care Provider Encounter Details Date Type Department Care Team (Late Contact Info) Description 02/23/2024 Orders Only Division of [facility], in [place], [place] [address] [place] [phone] Manoj Davalos APRN, C.N.P., M.S.N. [address] [place] [phone] Presyncope (Primary Dx) Social History Tobacco Use Types [...] CDT Appointment Department of Laboratory Medicine in [place], [place] [address] [place] [phone] Aubrey Little M.D. [address] [place] [phone] 03/20/2024 10:00 AM CDT Comprehensive Visit Department of Cardiovascular Diseases in [place], [place] [address] [place] [phone] Aubrey Little M.D. 200 [place] [address] 04/13/2024 11:00 AM CDT Comprehensive Visit Department of Neurology in [place], [place] [address] [place] [phone] Florin Montes M.D. [address] [place] [phone] documented as of this encounter Visit Diagnoses Diagnosis Presyncope- Primary documented in this encounter Care Teams Manager Review Relationship Specialty Start Date End Date Arlette Nath APRN, C.N.P. [address] [place] [address] [place] [phone] PCP - General Family Medicine 12/22/23 03/09/24 documented as of this encounter
--- OUTSIDE RECORDS SUMMARY | 2024-03-15 12:56 | XMS_ITS | Encounter Summary ---
Author Organization [facility] Address [address] [place] [address] Care Team Providers Care Team Supervisor Name Role Phone Arlette Nath EDUARDO, C.N.P. Primary Care Provider Reason for Visit * Reason Comments Med Refill Encounter Details Date Type Department Care Team (Late Contact Info) Description 03/09/2024 Refill Division of [facility], [facility] in [place], [place] [address] [place] [phone] Manoj Davalos APRN, C.N.P., M.S.N. [address] [place] [phone] Med Refill Social History Tobacco Use Types [...] CDT Appointment Department of Laboratory Medicine in [place], [place] [address] [place] [address] Aubrey Little M.D. [address] [place] [phone] 03/20/2024 10:00 AM CDT Comprehensive Visit Department of Cardiovascular Diseases in [place], [place] [address] [place] [phone] Aubrey Little M.D. [address] [place] [address] 04/13/2024 11:00 AM CDT Comprehensive Visit Department of Neurology in [place], [place] [address] [place] [phone] Florin Montes M.D. [address] [place] [phone] documented as of this encounter Visit Diagnoses Not on filedocumented in this encounter Care Teams Team Supervisor Relationship Specialty Start Date End Date Arlette Nath APRN, C.N.P. [address] [place] [address] [place] [phone] PCP - General Family Medicine 12/22/23 03/09/24 documented as of this encounter
--- OUTSIDE RECORDS SUMMARY | 2024-03-15 12:56 | XMS_ITS | Encounter Summary ---
Author Organization [facility] Address [address] [place] [address] Care Team Providers Care Assistant Professor Of Business Name Role Phone Arlette Nath EDUARDO, C.N.P. Primary Care Provider Reason for Visit * Outpatient (Routine) - Closed Specialty Diagnoses / Procedures Referred By Armaan howell Referred To Contact Neurology Diagnoses Tremor Procedures Neurology - Movement disorder eConsult Neurology - Movement disorder eConsult Manoj Davalos APRN C.N.P., M.S.N. [address] [place] [phone] [facility] Referral ID Status Reason Start Date Expiration Date Visits Re quested Visits Authorized [id number] Closed 01/17/2024 01/16/2025 1 1 Encounter Details Date Type Department Care Team (Latest Contact Info) Description 02/24/2024 10:30 AM CDT Internal E-Consult Department of Neurology in [place], [place] [address] [place] [phone] Samir Fregoso M.D., Ph.D. [address] [place] [phone] Tremor (Primary Dx) Social History Tobacco Use Types Packs/Day Years Used Date Smoking Tobacco: Former Cigars Smokeless Tobacco: Never Dental Answer Date Recorded Dental: Regular Dentist Unknown 03/05/20 22 Sex and Gender Information Value Date Recorded Sex Assigned at Not on file Gender Identity Not on file Sexual Orientation Not on file documented as of this encounter Consult Notes * Samir Fregoso M.D., Ph.D. - 02/23/2024 10:30 AM CDT SUBJECTIVE Ordering Physician: Manoj Davalos APRN, C.N.P., M.S.N. The patient was not personally interviewed or examined. The history and examination findings are based on the clinical documentation provided and/or discussed with a physician or provider who had personally interviewed and examined the patient. Time spent: Five minutes or more of medical review. Chief Complaint / Reason for Visit A consult was placed regarding Diego Guthrie, a 73 y.o. male. History of Present Illness I copied a few brief notes from the records: Nursing and therapy report he was walking [...] He slowly started to become more alert. Reason for this consult: Increasing tremor all over the body/upper extremities Supervisor: MANOJ DAVALOS Signed By: Manoj Davalos APRN, C.N.P., M.S.N. On January 16, NADIA Davalos reported hypoxic respiratory failure in the setting of pulmonary edema and heart failure exacerbation. He had ???worsening I can apnea with somnolence and confusion?? I reviewed the recent records. He is s/p renal transplant, now with major renal insufficiency with the most recent creatinines 3.86, 3.72. His estimated GFR is 16. He is diabetic & the most recent glucose that I saw was 310, which may not have been fasting. Two weeks ago, his potassium was 2.9 and another value on the same day was 2.6. A week ago, it came back to 3.8. I note that he is using nasal oxygen. He has right diaphragm paralysis. Other blood work included a normal TSH a month ago and also anemia with a hemoglobin of 8.8 and hematocrit of 29.6 with an MCV of 83. ASSESSMENT / PLAN Mr. Guthrie has a multiplicity of serious medical issues, as outlined above. I did not see characterization of his tremor and it was not clear how long he has had this, nor was there a description of the tremor type. In recent months, he has been in states of chronic metabolic upheaval. This can be the substrate for tremor and/or myoclonus. Also, if he has a longstanding tremor (i.e., essential tremor) this couldbe exacerbated as well by metabolic upheaval. If this were deemed to be a more substantial problem,he obviously would need to be seen first-hand and also the neurophysiology assessed in the [facility]. Given all of the medical problems, I do not think that is necessary at this time. I think the appropriate treatment would be to continue to addresshis medical problems. As a separate issue, I note that he had an episode where he ???slumped over his walker?? . Note that he is on a multitude of hypotensive medications that includes the alpha 1-berto, tamsulosin, as well as Isordil, hydralazine and carvedilol. Although there could be other reasons for this presyncope-like spell, I would worry about orthostatic hypotension. My recommendations based upon everything that I read are as follows: 1. Check the standing blood pressure each morning after he is taken his morning medications and eaten breakfast. We want a standing systolic blood pressure always over 100 mmHg. It might be dale to occasionally check his standing blood pressure later in the day, such as when he goes for a walk. 2. Please order a methylmalonic acid and vitamin B12 level. If B12 is in the low-normal range, he should be supplemented, but this should be with a B12 formulation other than cyanocobalamin. The ???cyano? moiety can potentially exacerbate renal failure & the B12 formulations that are appropriate in this setting would be acetylcobalamin in combination with methylcobalamin. If his pharmacy does not have these, the [facility] pharmacy carries those and do not require a prescription. A single pill can be found that contains 500-1,000 micro gm of each and that should be administered once a day. Restated, a single pill containing 500 to a 1000 micro gm of each, given daily would be appropriate. documented in this encounter Plan of Treatment Upcoming Encounters Date Type Department Care Team (Late st Contact Info) Description 03/20/2024 9:00 AM CDT Appointment Department of Laboratory Medicine in [place], [place] [address], [place] [address] Aubrey Little M.D. 200 [place] [address] 03/20/2024 10:00 AM CDT Comprehensive Visit Department of Cardiovascular Diseases in [place], [place] [address] [place] [phone] Aubrey Little M.D. 200 [place] [address] 04/13/2024 11:00 AM CDT Comprehensive Visit Department of Neurology in [place], [place] [address] [phone] Florin Montes M.D. [address] [phone] documented as of this encounter Visit Diagnoses Diagnosis Tremor- Primary documented in this encounter Care Teams Assistant Professor Of Business Relationship Specialty Start Date End Date Arlette Ntah APRN, C.N.P. [address] [place] [phone] PCP - General Family Medicine 12/22/23 03/09/24 documented as of this encounter
--- OUTSIDE RECORDS SUMMARY | 2024-03-15 12:56 | XMS_ITS | Encounter Summary ---
Author Organization [facility] Address [address] [place] [address] Care Team Providers Care Entry Level Finance Name Role Phone Arlette Nath APRN C.N.PGen[place] Primary Care Provider Encounter Details Date Type Department Care Team (Late st Contact Info) Description 01/21/2024 Orders Only Senior [facility] in [facility] [address] [phone] Victorina Dowell M.D. [address] [place] [phone] Social History Tobacco Use Types Packs/Day Years [...] CDT Appointment Department of Laboratory Medicine in [place], [place] [address] [phone] Aubrey Little M.D. 200 [place] [address] 03/20/2024 10:00 AM CDT Comprehensive Visit Department of Cardiovascular Diseases in [place], [place] [address] [place] [phone] Aubrey Little M.D. [address] [place] [address] 04/13/2024 11:00 AM CDT Comprehensive Visit Department of Neurology in [place], [place] [address] [place] [phone] Florin Montes M.D. [address] [place] [phone] documented as of this encounter Visit Diagnoses Not on filedocumented in this encounter Care Teams Entry Level Finance Relationship Specialty Start Date End Date Arlette Nath APRN, C.N.P. [address] [place] [address] [place] [phone] PCP - General Family Medicine 12/22/23 03/09/24 documented as of this encounter
--- OUTSIDE RECORDS SUMMARY | 2024-03-15 12:56 | XMS_ITS | Encounter Summary ---
Author Organization [facility] Address [address] [place] [address] Care Team Providers Care Silverware Supervisor Name Role Phone Arlette Nath APRN, C.N.P. Primary Care Provider Reason for Visit * Appointment Request (Routine) - Closed Specialty Diagnoses / Procedures Referred By Conthardy t Referred To Contact Senior Living Facility Referral ID Status Reason Start Date Expiration Date Visits Re quested Visits Authorized [id number] Closed 02/10/2024 02/09/2025 1 1 Encounter Details Date Type Department Care Team (Latest Contact Info) Description 02/16/2024 10:00 AM CDT External Outreach Senior Services in [facility] [address] [phone] Arlette Nath APRN, C.N.P. 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 (HCC); Anxiety Generalized Disorder; Apnea Sleep Obstructive; Atrial Fibrillation Permanent (HCC); Hypothyroidism On Replacement; Chronic Diastolic (Congestive) Heart Failure (HCC); Chronic Respiratory Failure (HCC); Depression Major Recurrent Moderate (HCC); 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HCC); Gastroesophageal Reflux Disease Without Esophagitis; Hyperlipidemia; Transplant Renal (HCC); Pancreas Disease; Paralysis Diaphragm; Polyneuropathy; Lesion Scrotum; Senior Living 30 Day Certification Exam Social History Tobacco Use Types Packs/Day Years [...] Sign Reading Time Taken Comments Blood Pressure 117/69 02/16/2024 4:57 PM CDT Pulse 74 02/16/2024 4:57 PM CDT Temperature 37 ??C (98.6 ??F) 02/16/2024 4:57 PM CDT Respiratory Rate 18 02/16/2024 4:57 PM CDT Oxygen Saturation 98% 02/16/2024 4:57 PM CDT Inhaled Oxygen Concentration - - Weight 127 kg (279 lb 12.8 oz) 02/16/2024 4:57 P M CDT Height - - Body Mass Index 37.95 07/04/2023 6:11 PM 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 - 02/16/2024 10:00 AM CDT ORDERS and INSTRUCTIONS: Medicare Recertification Visit done. rehabilitation services aide to do PHQ-9 Draw CBC and CMP on Tuesday02/20/24. There are no discontinued medications. Orders Placed This Encounter Comprehensive Metabolic Panel [place] Standing Status: Future Standing Expiration Date: 05/18/2025 Order Specific Question: Region: Answer: [facility] Region [[id number]] CBC with Differential, Blood NH Standing Status: Future Standing Expiration Date: 05/18/2025 Order Specific Question: Region: Answer: [facility] Region [[id number]] Electronically signed by: Arlette Nath APRN, C.N.P. 02/16/24 5:31 PM CDT documented in this encounter Progress Notes * Arlette Nath APRN, C.N.P. - 02/16/2024 10:00 AM CDT CHIEF COMPLAINT / REASON FOR VISIT [facility] Visit Visit Type: In Person: Face to Face SUBJECTIVE HISTORY OF PRESENT ILLNESS Today's narrative history (obtained from Patient, Nursing, and Evp Chief Exploration Officer): He is seen today for a Medicare recertification visit. He is feeling much better per his report. rehabilitation services aide reports he told therapy that he wished he had a gun to kill himself. He later denied any suicidal ideation to the same therapist. 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 #4 Apnea Sleep Obstructive Overview: Using the BiPAP with sleep in the setting of diaphragmatic paralysis #5 Atrial Fibrillation Permanent ([facility]) Overview: Has had difficulty with bradycardia and has switched between carvedilol and nifedipine. Currently on carvedilol. #6 Hypothyroidism On Replacement Overview: Managed on levothyroxine 100 mcg daily #7 Chronic Diastolic (Congestive) Heart Failure ([facility]) Overview: Chronic heart failure with preserved ejection [...] kg 02/09/24 127 kg 01/30/24 131 kg #8 Chronic Respiratory Failure ([facility]) Overview: New chronic oxygen requirements at 3 L per nasal cannula since November 2023. [place] multifactorial including acute on chronic congestive heart failure and right diaphragm paralysis. #9 Depression Major Recurrent Moderate ([facility]) Overview: On escitalopram #10 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[facility]) Overview: Right forearm No longer used for dialysis. #11 Gastroesophageal Reflux Disease Without Esophagitis Overview: Managed on protonix #12 Hyperlipidemia Overview: On rosuvastatin in the setting of diabetes. #13 Transplant Renal ([facility]) Overview: Renal transplant 02/04/2014 to address end-stage renal disease on dialysis Follows with [facility]. #14 Pancreas Disease Overview: 08/12/2022 CT Abdomen Pelvis without IV [...] lesions, pancreatic protocol MRI recommended. 5. Cholelithiasis. 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 Contributing to chronic respiratory failure Need for BiPAP with sleep #16 Polyneuropathy Overview: Diabetic polyneuropathy on pregabalin to control symptoms. #17 Lesion Scrotum Overview: Posterior scrotal wound. #18 Senior Living 30 Day Certification Exam Overview: SNF Recertification History per: Staff and patient [...] in this note, otherwise negative. OBJECTIVE BP 117/69 Pulse 74 Temp 37 ??C Resp 18 Wt 127 kg SpO2 98% BMI 37.95 kg/m?? PHYSICAL EXAM Physical Exam ASSESSMENT / PLAN Full background details regarding problems addressed at today's visit can be found in the HPI. Pertinent changes to the care plan based on today's evaluation are explicitly discussed below, otherwiselisted problems are stable and present management will be continued. 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 Stump clean #3 Anxiety Generalized Disorder Assessment & Plan: He is stable on current dose. #4 Apnea Sleep Obstructive Assessment & Plan: Continue CPAP #5 Atrial Fibrillation Permanent (HCC) Assessment & Plan: On exterminator termite anticoagulation with apixaban 2.5 mg bid #6 Hypothyroidism On Replacement Assessment & Plan: Continue medication #7 Chronic Diastolic (Congestive) Heart Failure (HCC) Assessment & Plan: Continue hydralazine 40 mg, isosorbide 40 mg daily,torsemide 40 mg bid and potassium 40 meq daily. Draw CMP 02/20/24 Orders: - Comprehensive Metabolic Panel; Future; Expected date: 02/16/2024 - CBC with Differential, Blood; Future; Expected date: 02/16/2024 #8 Chronic Respiratory Failure (HCC) Assessment & Plan: On continuous oxygen with nasal cannula. Sats chronically are low when he is active. They recover quickly with rest #9 Depression Major Recurrent Moderate (HCC) Assessment & Plan: rehabilitation services aide to do PHQ9 . rehabilitation services aide report the he told therapy that he would kill himself if had a gun. Therapy visited him again to ask him to talk about what he meant. He told them he was ok and there is nothing to be concerned about. 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 Creat was 3.45 on 02/13/24. 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 Recertification paperwork [...] this included review of medications and orders. PATIENT EDUCATION Ready to learn, no apparent [...] Note - Arlette Nath APRN, C.N.P. - 02/16/2024 5:26 PM CDT Associated Problem(s): Senior Living 30 Day Certification Exam Patient remains appropriate long-term resident. Recertification paperwork [...] this included review of medications and orders. * Assessment & Plan Note - Arlette Nath APRN, C.N.P. - 02/16/2024 5:23 PM CDT Associated Problem(s): Lesion Scrotum Nursing reports that wound is healing * Assessment & Plan Note - Arlette Nath APRN, C.N.P. - 02/16/2024 5:21 PM CDT Associated Problem(s): Polyneuropathy Continue pregabalin * Assessment & Plan Note - Arlette Nath APRN, C.N.P. - 02/16/2024 5:21 PM CDT Associated Problem(s): Paralysis Diaphragm Uses continuous oxygen with nasal cannula * Assessment & Plan Note - Arlette Nath APRN, C.N.P. - 02/16/2024 5:20 PM CDT Associated Problem(s): Pancreas Disease Background pancreatic fatty atrophy with multilobular low-density pancreatic lesions, pancreatic * Assessment & Plan Note - Arlette Nath APRN, C.N.P. - 02/16/2024 5:19 PM CDT Associated Problem(s): Transplant Renal (HCC) His renal function is checked twice a week. Creat was 3.45 on 02/13/24. * Assessment & Plan Note - Arlette Nath APRN, C.N.P. - 02/16/2024 5:17 PM CDT Associated Problem(s): Hyperlipidemia Continue statin * Assessment & Plan Note - Arlette Nath APRN, C.N.P. - 02/16/2024 5:17 PM CDT Associated Problem(s): Gastroesophageal Reflux Disease Without Esophagitis Continue protonix * Assessment & Plan Note - Arlette Nath APRN, C.N.P. - 02/16/2024 5:16 PM CDT Associated Problem(s): 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HCC) Intact * Assessment & Plan Note - Arlette Nath APRN, C.N.P. - 02/16/2024 5:16 PM CDT Associated Problem(s): Depression Major Recurrent Moderate (HCC) rehabilitation services aide to do PHQ9 . rehabilitation services aide report the he told therapy that he would kill himself if had a gun. Therapy visited him again to ask him to talk about what he meant. He told them he was ok and there is nothing to be concerned about. * Assessment & Plan Note - Arlette Nath APRN, C.N.P. - 02/16/2024 5:10 PM CDT Associated Problem(s): Chronic Respiratory Failure (HCC) On continuous oxygen with nasal cannula. Sats chronically are low when he is active. They recover quickly with rest * Assessment & Plan Note - Arlette Nath APRN, C.N.P. - 02/16/2024 5:08 PM CDT Associated Problem(s): Chronic Diastolic (Congestive) Heart Failure (HCC) Continue hydralazine 40 mg, isosorbide 40 mg daily,torsemide 40 mg bid and potassium 40 meq daily. Draw CMP 02/20/24 * Assessment & Plan Note - Arlette Nath APRN, C.N.P. - 02/16/2024 5:05 PM CDT Associated Problem(s): Hypothyroidism On Replacement Continue medication * Assessment & Plan Note - Arlette Nath APRN, C.N.P. - 02/16/2024 5:04 PM CDT Associated Problem(s): Atrial Fibrillation Permanent (HCC) On fdc anticoagulation with apixaban 2.5 mg bid * Assessment & Plan Note - Arlette Nath APRN, C.N.P. - 02/16/2024 5:02 PM CDT Associated Problem(s): Apnea Sleep Obstructive Continue CPAP * Assessment & Plan Note - Arlette Nath APRN, C.N.P. - 02/16/2024 5:02 PM CDT Associated Problem(s): Anxiety Generalized Disorder He is stable on current dose. * Assessment & Plan Note - Arlette Nath APRN, C.N.P. 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 Stump clean * Assessment & Plan Note - Arlette Nath APRN, C.N.P. - 02/16/2024 4:59 PM CDT Associated Problem(s): Advanced Care Planning He is now DNR/DNI documented in this encounter Plan of Treatment Upcoming Encounters Date Type Department Care Team (Late st Contact Info) Description 03/20/2024 9:00 AM CDT Appointment Department of Laboratory Medicine in [place], [place] [address] [place] [phone] Aubrey Little M.D. [address] [place] [phone] 03/20/2024 10:00 AM CDT Comprehensive Visit Department of Cardiovascular Diseases in [place], [place] [address] [place] [phone] Aubrey Little M.D. [address] [place] [phone] 04/13/2024 11:00 AM CDT Comprehensive Visit Department of Neurology in [place], [place] [address] [phone] Florin Montes M.D. 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 (HCC) Anxiety Generalized Disorder Apnea Sleep Obstructive Atrial Fibrillation Permanent (HCC) Hypothyroidism On Replacement Chronic Diastolic (Congestive) Heart Failure (HCC) Chronic Respiratory Failure (HCC) Depression Major Recurrent Moderate (HCC) 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HCC) Gastroesophageal Reflux Disease Without Esophagitis Hyperlipidemia Transplant Renal (HCC) Pancreas Disease Paralysis Diaphragm Polyneuropathy Lesion Scrotum Senior Living 30 Day Certification Exam documented in this encounter Care Teams Silverware Supervisor Relationship Specialty Start Date End Date Arlette Nath APRN, C.N.P. [address] [place] [phone] PCP - General Family Medicine 12/22/23 03/09/24 documented as of this encounter
--- OUTSIDE RECORDS SUMMARY | 2024-03-15 12:57 | XMS_ITS | Encounter Summary ---
Author Organization [facility] Address [address] [place] [address] Care Team Providers Care Grants Administrator Name Role Phone Arlette Nath APRN, C.N.P. Primary Care Provider Encounter Details Date Type Department Care Team (Late st Contact Info) Description 01/02/2024 Orders Only Senior Services in [facility] [address] [phone] Arlette Nath APRN, C.N.P. [address] [place] [phone] Social History Tobacco Use Types Packs/Day Years [...] CDT Appointment Department of Laboratory Medicine in [place], [place] [address] [place] [phone] Aubrey Little M.D. 200 [place] [phone] 03/20/2024 10:00 AM CDT Comprehensive Visit Department of Cardiovascular Diseases in [place], [place] [address] [place] [phone] Aubrey Little M.D. [address] [place] [phone] 04/13/2024 11:00 AM CDT Comprehensive Visit Department of Neurology in [place], [place] [address] [place] [phone] Florin Montes M.D. [address] [place] [phone] documented as of this encounter Visit Diagnoses Not on filedocumented in this encounter Care Teams Grants Administrator Relationship Specialty Start Date End Date Arlette Nath APRN, C.N.P. [address] [place] [address] [place] [phone] PCP - General Family Medicine 12/22/23 03/09/24 documented as of this encounter
--- OUTSIDE RECORDS SUMMARY | 2024-03-15 12:57 | XMS_ITS | Encounter Summary ---
Author Organization [facility] Address [address] [place] [address] Care Team Providers Care Industrial Machine System Technician Name Role Phone Arlette Nath APRN C.N.PGeneva Primary Care Provider Encounter Details Date Type Department Care Team (Late st Contact Info) Description 12/24/2023 Orders Only Senior Services in [facility] [address] [phone] Victorina Dowell M.D. [address] [place] [phone] Social History Tobacco Use Types Packs/Day Years [...] CDT Appointment Department of Laboratory Medicine in [place], [place] [address] [phone] Aubrey Little M.D. 200 [place] [phone] 03/20/2024 10:00 AM CDT Comprehensive Visit Department of Cardiovascular Diseases in [place], [place] [address] [place] [phone] Aubrey Little M.D. [address] [place] [phone] 04/13/2024 11:00 AM CDT Comprehensive Visit Department of Neurology in [place], [place] [address] [place] [phone] Florin Montes M.D. [address] [place] [phone] documented as of this encounter Visit Diagnoses Not on filedocumented in this encounter Care Teams Industrial Machine System Technician Relationship Specialty Start Date End Date Arlette Nath APRN, C.N.P. [address] [place] [address] [place] [phone] PCP - General Family Medicine 12/22/23 03/09/24 documented as of this encounter
--- OUTSIDE RECORDS SUMMARY | 2024-03-15 12:57 | XMS_ITS | Encounter Summary ---
Author Organization [facility] Address [address] [place] [id number] Care Team Providers Care Industrial Ecologist Name Role Phone Arlette Nath Juan CLARK.N.PGeneva Primary Care Provider Reason for Referral * Outpatient (Routine) - Closed Specialty Diagnoses / Procedures Referred By Armaan howell Referred To Contact Neurology Diagnoses Tremor Procedures Neurology - Movement disorder eConsult Neurology - Movement disorder eConsult Manoj Davalos APRN, C.N.Vidal, M.S.N. [address] [place] [phone] [facility] Referral ID Status Reason Start Date Expiration Date Visits Re quested Visits Authorized [id number] Closed 01/17/2024 01/16/2025 1 1 * Outpatient (Routine) - Authorized Specialty Diagnoses / Procedures Referred By Armaan howell Referred To Contact Neurology Diagnoses Tremor Manoj Davalos APRN, C.N.Vidal, M.S.N. [address] [place] [phone] [facility] Referral ID Status Reason Start Date Expiration Date V isits Requested Visits Authorized [id number] Authorized 01/22/2024 07/23/2025 1 1 Scheduling Instructions Currently a patient at [facility] all * Outpatient (Routine) - Authorized Specialty Diagnoses / Procedures Referred By Armaan howell Referred To Contact Neurology Diagnoses Tremor Procedures Neurology - Supportive care eConsult Manoj Davalos APRN, C.N.P., M.S.N. 200 [place] [phone] [facility] Region Referral ID Status Reason Start Date Expiration Date V isits Requested Visits Authorized [id number] Authorized 01/22/2024 01/21/2025 1 1 Reason for Visit * Reason Comments long term medication reconciliation/r eadmission * Appointment Request (Routine) - Closed Specialty Diagnoses / Procedures Referred By Armaan howell Referred To Contact Community Internal Medicine Referral ID Status Reason Start Date Expiration Date Visits Re quested Visits Authorized [id number] Closed 01/13/2024 01/12/2025 1 1 Encounter Details Date Type Department Care Team (Latest Contact Info) Description 01/17/2024 10:00 AM CDT External Outreach [facility] in [facility] [address] [place] [phone] Manoj Davalos APRN, C.N.P., M.S.N. 200 [place] [phone] 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 [...] Other Renal Disorders; Hypothyroidism On Replacement; Insomnia; Halfway (Current) Anticoagulant Treatment; Halfway Use Of Insulin Active (HCC); Morbid Obesity (HCC); Chcf Stay Certification Exam; Polypharmacy; Sleep Disorder; Weakness General Social History Tobacco Use Types Packs/Day Years [...] Sign Reading Time Taken Comments Blood Pressure 127/73 01/17/2024 8:50 AM CDT Pulse 65 01/17/2024 8:50 AM CDT Temperature 36.8 ??C (98.2 ??F) 01/17/2024 8:50 AM CD T Respiratory Rate 17 01/17/2024 8:50 AM CDT Oxygen Saturation 90% 01/17/2024 8:50 AM CDT Inhaled Oxygen Concentration - - Weight 127 kg (280 lb) 01/17/2024 8:50 AM CDT Height - - Body Mass Index 37.97 07/04/2023 6:11 PM 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 - 01/17/2024 10:00 AM CDT CHIEF COMPLAINT / REASON FOR VISIT [facility] Follow Up /Re-AdmissionVisit Visit Type: In Person: Face to Face SUBJECTIVE HISTORY OF PRESENT ILLNESS Cleveland Cortez is a 73-year-old male resident admitted to [facility]. Past medical history is significant for Diego Guthrie is a(n) 73 y.o. with a history of DM Type II, s/p left BKA, CKD s/p renal transplant in 2013 (currently stage 4 CKD), and chronic diastolic CH. Prior to this last hospitalization, patient was admitted to [facility] 11/18- 11/22/2023 with shortness of breath, increasing edema, MICHELLE and acute CHF exacerbation. He had hypoxic respiratory failure in the setting of pulmonary edema and heart failure exacerbation. There, he was placed on BiPAP and started on Lasix infusion. Developed acute urinary retention requiring placement of Bose. Course complicated with worsening hypercapnia with somnolence and confusion and worsening renal function subsequently transferred to [facility] for higher level of care and nephrology consult on 11/21. Diaphragm fluoroscopy on 12/04 showed paralyzed right hemidiaphragm thus recommended BiPAP chronically. Weaned off oxygen to <6L and Subsequently discharged to TCU on 12/13. Presented to [place] ED from his TCU for worsening hypoxia requiring 6L oxygen. He was also found to have elevated creatinine at 3.48 (2.46 on 11/21-), K at 6.5, platelet 68, WBC 4.0. BNP 6600, troponin plateaud at `40s. UA with ?UTI. While there, he received kayexelate and lasix 60 mg IV. Futhermore, he was empirically started on ceftriaxone for UTI. He also complained of oliguria thus, bose inserted for retention. Case was discussed with Cardiology, Dr Parks. Transferred to [facility] for further management. Cardiology and Nephrology consulted. Started on diuresis with good response. O2 needs improved. Wt down 54 lbs so far, antihypertensives adjusted as below Treated for Serratia UTI with 7 days of Abx On 01/07/24, he was more somnolent, VBG with pH 7.34, pCO2 63, SpO2 92. Started on BiPap at hs and with naps during the day, improved. Recommend outpatient sleep study, requiring O2 with ambulation. Recommendations for Outpatient Provider PCP Pt s/p acute on chronic HFpEF, DDKT with MICHELLE on CKD. IV diuresis per Nephrology. CHF GDMT. - repeat labs in 3-5 days s/p dc - f/u with Cardiology on 02/06 as scheduled - OP CV rehab - Sleep Medicine in OP setting for CHANELL - Daily wt's, I/O, call for HF wt gain - CHF GDMT Medication regimen changes: see Hospital Course above. Follow-up labs/imaging: BMP, Hemoglobin, and Mg at post-hospital visit Specific recommendations to be addressed at the follow up visit: HTN, DM, monitor Potassium Medication changes: as below Follow up labs/imaging: BMP Other specialty follow-up not included in DC orders: Renal, Cardiology SI Category 5. Please consider having a serious illness conversation with the patient in clinic Patient Cardiology Follow Up Instructions Please follow up on February 07, 2024 in cardiology clinic with Dr. Dionicio Callahan MD, at [facility] (phone: [phone] ext. [phone]). Please for questionsor to reschedule an appointment. Today's narrative history (obtained from Patient, Nursing, and PT/OT): Patient is seen today for fci medication reconciliation in post hospital follow-up. The following issues were discussed: Patient reported reported weight gain and possible need to increase torsemide. Patient mentioned increasing tremors. He could not remember the last time he sees Neurology. EHR showed last visit with Neurology on 05/20/2010 at [facility]. We will see if we can get patient to see the neurology. Obstructive sleep apnea: Patient deferred on sleep medicine referral at this time. He endorses adequate sleep at night, appetite, have no urinary concerns at this time. Patient denies headache, dizziness, lightheadedness, fever, chills, cough, wheezing, chest pain, and palpitation.Denies nausea, vomiting, and rated pain at 0/10. The following medical problems were actively reviewed (including updating overview sections as necessary) and addressed as part of today's visit: #1 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 Rate 15-29 ([facility]) Overview: In the setting of renal transplant. Most recent GFR 28. Follows with renal transplant at [facility]. Lab Results Component Value Date CREATININE 2.89 (H) 01/20/2024 #2 Chronic Respiratory Failure ([facility]) Overview: New chronic oxygen requirements at 3 L per nasal cannula since November 2023. [place] multifactorial including acute on chronic congestive heart failure and right diaphragm paralysis. #3 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 ([facility]) Overview: Left BKA secondary to osteomyelitis 12/17/2005 [facility] #4 Transplant Renal ([facility]) Overview: Renal transplant 02/04/2014 to address end-stage renal disease on dialysis Follows with [facility]. #5 Tremor #6 Gain Weight #7 Advanced Care Planning Overview: Full code #8 Anemia Iron Deficiency Overview: Lab Results Component Value Date WBC 3.1 (L) 01/17/2024 HGB 8.8 (L) 01/17/2024 HCT 29.6 (L) 01/17/2024 MCV 83 01/17/2024 PLT 94 (L) 01/17/2024 #9 Anxiety Generalized Disorder Overview: On escitalopram. #10 Apnea Sleep Obstructive Overview: Using the CPAP #11 Atrial Fibrillation Permanent ([facility]) Overview: Has had difficulty with bradycardia and has switched between carvedilol and nifedipine. Currently on carvedilol. #12 Chronic Diastolic (Congestive) Heart Failure ([facility]) Overview: Chronic heart failure with preserved ejection [...] mitral valve is sclerotic, mild mitral regurgitation. #13 Depression Major Recurrent Moderate ([facility]) Overview: On escitalopram #14 Diabetes Mellitus Type 2 Ulcer Foot ([facility]) Overview: Lab Results Component Value Date HGBA1C 7.0 (H) 11/19/2023 Goal HgbA1C: <8.0 Oral: None Injectable: Insulin lispro and insulin glargine BG check frequency: 4 times daily #15 Diabetes Mellitus Type 2 With Diabetic Neuropathy ([facility]) Overview: Currently on long and short-acting insulins. #16 Edema Overview: 4+ edema right leg. #17 Gastroesophageal Reflux Disease Without Esophagitis Overview: Managed on protonix #18 Hyperlipidemia Overview: On rosuvastatin in the setting of diabetes. #19 Hypertension Secondary To Other Renal Disorders Overview: Treatment: Amlodipine, torsemide and carvedilol Goal: 110-130 #20 Hypothyroidism On Replacement Overview: Managed on levothyroxine 100 mcg daily Lab Results Component Value Date TSH 4.86 (H) 10/26/2023 #21 Insomnia Overview: Latent sleep initiation. #22 Halfway (Current) Anticoagulant Treatment Overview: On apixaban in the setting of atrial fibrillation. #23 Communications Project Lead Use Of Insulin Active ([facility]) Overview: He uses long and short-acting insulins. #24 Morbid Obesity ([facility]) Overview: BMI Readings from Last 1 Encounters: 01/17/24 37.97 kg/m?? #25 Chcf Stay Certification Exam Overview: Short-term stay #26 Polypharmacy Overview: All medications reviewed at least bimonthly for adverse events, interactions, and continued indication/appropriateness. Reduction as able. #27 Sleep Disorder Overview: CHANELL using CPAP #28 Weakness General Overview: This is multifactorial and related to recent hospitalization, chronic respiratory failure, deconditioning, and immunodeficiency. Past medical/surgical history, social history, medications, and allergies were reviewed and are visible in the Encounter view. Review of systems was performed, as allowable by patient's cognitive status, and incorporating collateral history if applicable. Relevant positives are noted elsewhere in this note, otherwise negative. OBJECTIVE BP 127/73 Pulse 65 Temp 36.8 ??C Resp 17 Wt 127 kg SpO2 90% BMI 37.97 kg/m?? Constitutional General: He is not in acute distress. Seated on the wheelchair. Appearance: Normal appearance. Comments: HENT Right [...] Abdomen is soft. Musculoskeletal Right lower leg: No edema. Left lower leg: Left lower extremity [...] present management will be continued. #1 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 Rate 15-29 ([facility]) Assessment & Plan: Continue to be followed up at [facility]. #2 Chronic Respiratory Failure ([facility]) Assessment & Plan: Patient continues to be on continuous oxygen supplement 1-3LNC. Denied worsening respiratory failure. #3 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 ([facility]) Assessment & Plan: No edema noted. Stump sleeve in place. #4 Transplant Renal ([facility]) Assessment & Plan: He is currently not on dialysis. Shunt right arm. Elevated creat. #5 Tremor Assessment & Plan: Patient reported increasing tremors. He could not remember the last time he sees Neurology. EHR showed last visit with Neurology on 05/20/2010 at [facility]. Mild tremor noticed during this visit but not impacting his ADLs. We will see if we can getting to see the neurology. Orders: - Neurology - Movement disorder eConsult; Future; Expected date: 01/17/2024 - Neurology - Supportive care eConsult; Future; Expected date: 01/22/2024 - Neurology - Movement disorder and parkinson consult (clinic); Future; Expected date: 01/22/2024 #6 Gain Weight - Basic Metabolic Panel; Future; Expected date: 01/20/2024 #7 Advanced Care Planning #8 Anemia Iron Deficiency Assessment & Plan: Asymptomatic. #9 Anxiety Generalized Disorder Assessment & Plan: Nursing to monitor anxiety post hospitalization. Continue escitalopram #10 Apnea Sleep Obstructive Assessment & Plan: No concerns, oxygen saturation ranging from 96-99% on 1.5 L nasal cannula. We will continue CPAP use. #11 Atrial Fibrillation Permanent (HCC) Assessment & Plan: HR controlled ranging from 53-61. Continue care plan #12 Chronic Diastolic (Congestive) Heart Failure (HCC) Assessment & Plan: Nursing reported increasing weight was crackles on [...] afternoon. Monitoring weights and symptoms. Follow-up at m.d. admission. #13 Depression Major Recurrent Moderate (HCC) Assessment & Plan: Patient verbalized doing good and getting better. We will continue escitalopram. #14 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) Assessment & Plan: Blood sugar more controlled with current regimen. We will continue care plan. Re-evaluate during MDadmission. #15 Diabetes Mellitus Type 2 With Diabetic Neuropathy (HCC) #16 Edema Assessment & Plan: Trace of edema on right lower extremity. #17 Gastroesophageal Reflux Disease Without Esophagitis Assessment & Plan: Asymptomatic, continue care plan #18 Hyperlipidemia Assessment & Plan: Continue rosuvastatin #19 Hypertension Secondary To Other Renal Disorders Assessment & Plan: Blood pressure normotensive. Continue care plan. #20 Hypothyroidism On Replacement Assessment & Plan: Asymptomatic. Continue care plan Orders: - S-TSH (Thyroid-Stimulating Hormone - Sensitive); Future; Expected date: 01/24/2024 #21 Insomnia Assessment & Plan: Patient verbalized adequate sleep with melatonin at bedtime. #22 Halfway (Current) Anticoagulant Treatment Assessment & Plan: Continue apixaban #23 Halfway Use Of Insulin Active (HCC) Assessment & Plan: Continue insulin for blood sugar control #24 Morbid Obesity (HCC) Assessment & Plan: This is clinically significant due to increased nursing cares, use of resources, and specialty equipment. #25 Chcf Stay Certification Exam Assessment & Plan: Patient remains appropriate SNF resident. Order summary paperwork signed following our visit, this included review of medications and orders. Current comorbidities, ADL need/level of debility requires skilled care/therapy. Medications and labs all reviewed and appropriate related to comorbidities, unless otherwise indicated. Physician order sheet signed. Continue PT/OT therapy, nutrition intervention, skin protection, and fall prevention. #26 Polypharmacy #27 Sleep Disorder #28 Weakness General Assessment & Plan: This is expected to improve with therapies. Other orders - torsemide 40 mg tablet; Multiple Dosages:Starting Tue01/17/2024, Until Tue02/16/2024 at 2359Take 60 mg by mouth every morning AND 40 mg in the afternoon., Normal PATIENT EDUCATION Ready to learn, no [...] patient, family, and/or facility staff. Total time 60 minutes. documented in this encounter Miscellaneous Notes * Assessment & Plan Note - Manoj Davalos APRN, C.N.PGeneva, M.S.N. - 01/22/2024 5:03 PM CDTAssociated Problem(s): Tremor Patient reported increasing tremors. He could not remember the last time he sees Neurology. EHR showed last visit with Neurology on 05/20/2010 at [facility]. Mild tremor noticed during this visit but not impacting his ADLs. We will see if we can getting to see the neurology. * Assessment & Plan Note - Manoj Davalos APRN, C.N.P., M.S.N. - 01/22/2024 9:03 AM CDTAssociated Problem(s): Weakness General This is expected to improve with therapies. * Assessment & Plan Note - Manoj Davalos APRN, C.N.P., M.S.N. - 01/22/2024 9:02 AM CDTAssociated Problem(s): Transplant Renal (HCC) He is currently not on dialysis. Shunt right arm. Elevated creat. * Assessment & Plan Note - Manoj Davalos APRN, C.N.P., M.S.N. - 01/22/2024 9:01 AM CDTAssociated Problem(s): Chcf Stay Certification Exam (Resolved 02/16/2024) Patient remains appropriate SNF resident. Order summary paperwork signed following our visit, this included review of medications and orders. Current comorbidities, ADL need/level of debility requires skilled care/therapy. Medications and labs all reviewed and appropriate related to comorbidities, unless otherwise indicated. Physician order sheet signed. Continue PT/OT therapy, nutrition intervention, skin protection, and fall prevention. * Assessment & Plan Note - Manoj Davalos APRN, C.NArsh, M.S.N. - 01/22/2024 9:01 AM CDTAssociated Problem(s): Morbid Obesity (HCC) This is clinically significant due to increased nursing cares, use of resources, and specialty equipment. * Assessment & Plan Note - Manoj Davalos APRN, C.NArsh, M.S.N. - 01/22/2024 9:00 AM CDTAssociated Problem(s): Communications Project Lead Use Of Insulin Active (HCC) Continue insulin for blood sugar control * Assessment & Plan Note - Manoj Davalos APRN, C.NArsh, M.S.N. - 01/22/2024 9:00 AM CDTAssociated Problem(s): Communications Project Lead (Current) Anticoagulant Treatment Continue apixaban * Assessment & Plan Note - Manoj Davalos APRN, C.NArsh, M.S.N. - 01/22/2024 9:00 AM CDTAssociated Problem(s): Insomnia Patient verbalized adequate sleep with melatonin at bedtime. * Assessment & Plan Note - Manoj Davalos APRN, C.NArsh, M.S.N. - 01/22/2024 8:59 AM CDTAssociated Problem(s): Hypothyroidism On Replacement Asymptomatic. Continue care plan * Assessment & Plan Note - Manoj Davalos APRN, C.NArsh, M.S.N. - 01/22/2024 8:59 AM CDTAssociated Problem(s): Hypertension Secondary To Other Renal Disorders Blood pressure normotensive. Continue care plan. * Assessment & Plan Note - Manoj Davalos APRN, C.NArsh, M.S.N. - 01/22/2024 8:59 AM CDTAssociated Problem(s): Hyperlipidemia Continue rosuvastatin * Assessment & Plan Note - Manoj Davalos APRN, C.N.Vidal, M.S.N. - 01/22/2024 8:59 AM CDTAssociated Problem(s): Gastroesophageal Reflux Disease Without Esophagitis Asymptomatic, continue care plan * Assessment & Plan Note - Manoj Davalos APRN, C.N.P., M.S.N. - 01/22/2024 8:58 AM CDTAssociated Problem(s): Edema Trace of edema on right lower extremity. * Assessment & Plan Note - Manoj Davalos APRN, C.NArsh, M.S.N. - 01/22/2024 8:58 AM CDTAssociated Problem(s): 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) Blood sugar more controlled with current regimen. We will continue care plan. Re-evaluate during MDadmission. * Assessment & Plan Note - Manoj Davalos APRN, C.N.Vidal, M.S.N. - 01/22/2024 8:58 AM CDTAssociated Problem(s): Depression Major Recurrent Moderate (HCC) Patient verbalized doing good and getting better. We will continue escitalopram. * Assessment & Plan Note - Manoj Davalos APRN, C.N.PGeneva, M.S.N. - 01/22/2024 8:57 AM CDTAssociated Problem(s): Chronic Respiratory Failure (HCC) Patient continues to be on continuous oxygen supplement 1-3LNC. Denied worsening respiratory failure. * Assessment & Plan Note - Manoj Davalos APRN, C.N.P., M.S.N. - 01/22/2024 8:56 AM CDTAssociated Problem(s): 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 Rate 15-29 (HCC) Continue to be followed up at [facility]. * Assessment & Plan Note - Manoj Davalos APRN, C.N.P., M.S.N. - 01/22/2024 8:56 AM CDTAssociated Problem(s): Chronic Diastolic (Congestive) Heart Failure (HCC) Nursing reported increasing weight was crackles on [...] afternoon. Monitoring weights and symptoms. Follow-up at m.d. admission. * Assessment & Plan Note - Manoj Davalos APRN, C.N.P., M.S.N. - 01/22/2024 8:47 AM CDTAssociated Problem(s): Atrial Fibrillation Permanent (HCC) HR controlled ranging from 53-61. Continue care plan * Assessment & Plan Note - Manoj Davalos APRN, C.N.P., M.S.N. - 01/22/2024 8:47 AM CDTAssociated Problem(s): Apnea Sleep Obstructive No concerns, oxygen saturation ranging from 96-99% on 1.5 L nasal cannula. We will continue CPAP use. * Assessment & Plan Note - Manoj Davalos APRN, C.NArsh, M.S.N. - 01/22/2024 8:47 AM CDTAssociated Problem(s): Anxiety Generalized Disorder Nursing to monitor anxiety post hospitalization. Continue escitalopram * Assessment & Plan Note - Manoj Davalos APRN, C.NArsh, M.S.N. - 01/22/2024 8:46 AM CDTAssociated Problem(s): Anemia Iron Deficiency Asymptomatic. * Assessment & Plan Note - Maonj Davalos APRN, C.NArsh, M.S.N. - 01/22/2024 8:45 AM CDTAssociated Problem(s): 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 (HCC) No edema noted. Stump sleeve in place. * Addendum Note - Manoj Davalos APRN, C.NArsh, M.S.N. - 01/17/2024 10:00 AM CDTAddended by: MANOJ DAVALOS on: 01/24/2024 04:36 PM Modules accepted: Orders * Addendum Note - Manoj Davalos APRN, C.N.P., M.S.N. - 01/17/2024 10:00 AM CDTAddended by: MANOJ DAVALOS on: 01/26/2024 02:23 PM Modules accepted: Orders documented in this encounter Plan of Treatment Upcoming Encounters Date Type Department Care Team (Late st Contact Info) Description 03/20/2024 9:00 AM CDT Appointment Department of Laboratory Medicine in [place], [place] [address] [phone] Aubrey Little M.D. 200 [place] [phone] 03/20/2024 10:00 AM CDT Comprehensive Visit Department of Cardiovascular Diseases in [place], [place] [address] [phone] Aubrey Little M.D. 200 [place] [phone] 04/13/2024 11:00 AM CDT Comprehensive Visit Department of Neurology in [place], [place] [address] [phone] Florin Montes M.D. [address] [phone] Scheduled Referrals Name Type Priority Associated Diagnoses Orde r Schedule Neurology - Movement disorder and parkinson consult (clinic) Outpatient Referral Routine Tremor Expected: 01/24/2024, Expires: 04/23/2025 documented as of this encounter Visit Diagnoses Diagnosis 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 Rate 15-29 (HCC)- Primary Chronic Respiratory Failure (HCC) 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 (HCC) Transplant Renal (HCC) Tremor Gain Weight Advanced Care Planning Anemia Iron Deficiency Anxiety Generalized Disorder Apnea Sleep Obstructive Atrial Fibrillation Permanent (HCC) Chronic Diastolic (Congestive) Heart Failure (HCC) Depression Major Recurrent Moderate (HCC) 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) Diabetes Mellitus Type 2 With Diabetic Neuropathy (HCC) Edema Gastroesophageal Reflux Disease Without Esophagitis Hyperlipidemia Hypertension Secondary To Other Renal Disorders Hypothyroidism On Replacement Insomnia Communications Project Lead (Current) Anticoagulant Treatment Communications Project Lead Use Of Insulin Active (HCC) Morbid Obesity (HCC) Chcf Stay Certification Exam Polypharmacy Sleep Disorder Weakness General documented in this encounter Care Teams Industrial Ecologist Relationship Specialty Start Date End Date Arlette Nath APRN, C.N.P. [address] [place] [phone] PCP - General Family Medicine 12/22/23 03/09/24 documented as of this encounter
--- OUTSIDE RECORDS SUMMARY | 2024-03-15 12:57 | XMS_ITS | Encounter Summary ---
Author Organization [facility] Address [address] [place] [address] Care Team Providers Care Bmet Name Role Phone Arlette Nath APRN, C.NGenevaPGeneva Primary Care Provider Reason for Visit * Reason Comments Routine Group Home Visit SNF admission * Appointment Request (Routine) - Closed Specialty Diagnoses / Procedures Referred By Contac t Referred To Contact Penitentiary Facility Referral ID Status Reason Start Date Expiration Date Visits Re quested Visits Authorized [id number] Closed 12/22/2023 12/21/2024 2 2 Encounter Details Date Type Department Care Team (Latest Contact Info) Description 12/26/2023 10:00 AM CDT External Outreach Senior Services in [facility] [id number] [phone] Victorina Cao M.D. 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); Anemia Of Chronic Renal Disease; Chronic Respiratory Failure (HCC); Anxiety Generalized Disorder; Apnea Sleep Obstructive; 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HCC); Atrial Fibrillation Permanent (HCC); Chronic Diastolic (Congestive) Heart Failure (HCC); Depression Major Recurrent Moderate ([facility]); Diabetes Mellitus Type 2 With Diabetic Neuropathy ([facility]); Gastroesophageal Reflux Disease Without Esophagitis; Hyperlipidemia; Hypothyroidism On Replacement; Immunodeficiency Due To Conditions Classified Elsewhere ([facility]); Insomnia; Retirement (Current) Anticoagulant Treatment; 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 Instructor Use Of Insulin Active (HCC); Morbid Obesity (HCC); Other Urethral 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; Transplant Renal (HCC); Paralysis Diaphragm Social History Tobacco Use Types Packs/Day Years [...] Sign Reading Time Taken Comments Blood Pressure 141/84 12/26/2023 2:15 PM CDT Pulse 89 12/26/2023 2:15 PM CDT Temperature 36.6 ??C (97.9 ??F) 12/26/2023 2:15 PM CD T Respiratory Rate 20 12/26/2023 2:15 PM CDT Oxygen Saturation 92% 12/26/2023 2:15 PM CDT 2 L Inhaled Oxygen Concentration - - Weight 132 kg (290 lb) 12/26/2023 2:15 PM CDT Height - - Body Mass Index 39.33 07/04/2023 6:11 PM MOVING CONSULTANT documented in this encounter H&P Notes * Victorina Dowell M.D. - 12/26/2023 10:00 AM CDT CHIEF COMPLAINT / REASON FOR VISIT [facility] Admission Visit Visit Type: In Person: Face to Face Living situation prior to admission: Home with girlfriend Primary care provider: Dr. Forbes at [facility] SUBJECTIVE HISTORY OF PRESENT ILLNESS Today's narrative history (obtained from Patient and Nursing): Diego Guthrie was admitted to [facility] on 12/14/2023 from [facility]. Patient was admitted there on on 11/21 transferred from [facility] with shortness of breath and acute hypoxic respiratory failure secondary to pulmonary edema and heart failure exacerbation. He was placed on BiPAP and diuresed with improvement. Hospital course was complicated by: Acute kidney injury with creatinine peaking at 3.86. Nephrology was consulted and discussed dialysis which patient refused. Finding of paralyzed right diaphragm with recommendation for chronic BiPAP. At discharge, he continued to require supplemental oxygen. Acute urinary retention requiring indwelling catheter. Bradycardia with heart rates in the 30s. Carvedilol initially held then decreased dose. He was discharged to [facility] to address ongoing weakness. The past medical history is significant for left BKA, diabetes, chronic kidney disease status post renal transplant, history of diastolic congestive heart failure. Since admission to [facility],. The following medical problems were actively reviewed (including updating overview sections as necessary) and addressed as part of today's visit: Diagnosis Overview 1. 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 Anemia Of Chronic Renal Disease 3. Anxiety Generalized Disorder On escitalopram. 4. Apnea Sleep Obstructive Using the CPAP 5. Atrial Fibrillation Permanent ([facility]) Has had difficulty with bradycardia and has switched between carvedilol and nifedipine. Currently on carvedilol. 6. Chronic Diastolic (Congestive) Heart Failure (HCC) Chronic [...] mitral valve is sclerotic, mild mitral regurgitation. 7. 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 Rate 15-29 (HCC) In the setting of renal transplant. Most recent GFR 28. Follows with renal transplant at [facility]. Lab Results Component Value Date CREATININE 2.46 (H) 12/14/2023 8. Chronic Respiratory Failure (HCC) New chronic oxygen requirements at 3 L per nasal cannula since November 2023. [place] multifactorial including acute on chronic congestive heart failure and right diaphragm paralysis. 9. Depression Major Recurrent Moderate ([facility]) On escitalopram 10. Diabetes Mellitus Type 2 With Diabetic Neuropathy ([facility]) Currently on long and short-acting insulins. 11. 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HCC) Right forearm No longer used for dialysis. 12. Gastroesophageal Reflux Disease Without Esophagitis Managed on protonix 13. Hyperlipidemia On rosuvastatin in the setting of diabetes. 14. Hypothyroidism On Replacement Managed on levothyroxine 100 mcg daily Lab Results Component Value Date TSH 4.86 (H) 10/26/2023 15. 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 16. Insomnia Latent sleep initiation. 17. 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 18. Retirement Use Of Insulin Active ([facility]) He uses long and short-acting insulins. 19. Morbid Obesity ([facility]) BMI Readings from Last 1 Encounters: 12/23/23 40.74 kg/m?? 20. Other Urethral 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 To evaluate recurrent urine infections, he underwent cystoscopy on 10/18/2022. 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 Recommendations at that time included: Adequate fluid intake Retract foreskin with each urination, clean and dry, and return foreskin to aniak position. Returned to urology clinic in 6 months for uroflow and residual Returned to urology clinic sooner if recurrent infections 21. 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 Contributing to chronic respiratory failure Need for BiPAP with sleep 22. Transplant Renal ([facility]) Renal transplant 02/04/2014 to address end-stage renal disease on dialysis Follows with [facility]. 23. Weakness General - Primary This is multifactorial [...] Code status: Full code Diet: Consistent carbohydrate, low-sodium, regular texture, regular consistency Activity: Physical therapy, occupational therapy Ambulation: Assist of 1 with front wheeled walker ADLs: Assist of 1 Transfer: Assist of 1 with front wheeled walker Recent Falls: None at facility Medication list reviewed and updated: yes Medication Concerns: No concerns Cognition: BIMS 15 Skin: Plantar aspect right foot Bladder: Continent Bowel: Occasionally incontinent OBJECTIVE BP 141/84 Pulse 89 Temp 36.6 ??C Resp 20 Wt 132 kg SpO2 92% Comment: 2 L BMI 39.33 kg/m?? PHYSICAL EXAM GENERAL: Patient is alert and oriented. Patient is a good historian. NECK: Without adenopathy. HEART: Irregular LUNGS: Clear without wheeze crackle or rhonchus. Wearing oxygen by nasal cannula. ABDOMEN: Normal bowel sounds. EXTREMITIES: Mild to moderate right lower extremity edema. Left BKA. SKIN: No rashes or unusual lesions on [...] This is expected to improve with therapies. 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 #5 Chronic Respiratory Failure ([facility]) #6 Anxiety Generalized Disorder #7 Apnea Sleep Obstructive #8 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[facility]) #9 Atrial Fibrillation Permanent ([facility]) #10 Chronic Diastolic (Congestive) Heart Failure ([facility]) Assessment & Plan: Currently on torsemide 40 mg twice daily. Monitoring weights and symptoms. #11 Depression Major Recurrent Moderate ([facility]) #12 Diabetes Mellitus Type 2 With Diabetic Neuropathy ([facility]) Assessment & Plan: Blood sugars are checked 4 times daily in the SNF setting with b.i.d. Lantus and lispro at mealtime. Lab Results Component Value Date HGBA1C 7.0 (H) 11/19/2023 #13 Gastroesophageal Reflux Disease Without Esophagitis #14 Hyperlipidemia #15 Hypothyroidism On Replacement #16 Immunodeficiency Due To Conditions Classified Elsewhere ([facility]) #17 Insomnia #18 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 Instructor (Current) Anticoagulant Treatment #19 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 Instructor Use Of Insulin Active ([facility]) #20 Morbid Obesity ([facility]) Assessment & Plan: This is clinically significant due to increased nursing cares, use of resources, and specialty equipment. #21 Other Urethral 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 Assessment & Plan: Has had difficulty with urine retention during recent hospitalizations. This seems to improve with improvement in general status. For urine retention he is on tamsulosin. #22 Transplant Renal ([facility]) #23 Paralysis Diaphragm #24 Disposition Planning This is a planned short-term residential stay for rehabilitation. Patient plans to return to previous living situation at the completion of therapies. #25 Group Home Stay Justification Exam Current comorbidities, ADL [...] based on: Time, including the following tasks: updating the EPIC Problem List, reviewing written facility-provided information, reviewing information in facility EMR, medication reconciliation, obtaining collateral history from facility staff, Interviewing and examining the patient. Total time 46 minutes. documented in this encounter Miscellaneous Notes * Assessment & Plan Note - Victorina Dowell M.D. - 01/08/2024 3:43 PM CDTAssociated Problem(s): Weakness General This is expected to improve with therapies. * Assessment & Plan Note - Victorina Dowell M.D. 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 This seems to improve with improvement in general status. For urine retention he is on tamsulosin. * Assessment & Plan Note - Victorina Dowell M.D. - 01/08/2024 3:40 PM CDTAssociated Problem(s): Diabetes Mellitus Type 2 With Diabetic Neuropathy (HCC) Blood sugars are checked 4 times daily in the SNF setting with b.i.d. Lantus and lispro at mealtime. Lab Results Component Value Date HGBA1C 7.0 (H) 11/19/2023 * Assessment & Plan Note - Victorina Dowell M.D. - 01/08/2024 3:36 PM CDTAssociated Problem(s): Chronic Diastolic (Congestive) Heart Failure (HCC) Currently on torsemide 40 mg twice daily. Monitoring weights and symptoms. * Assessment & Plan Note - Victorina Dowell M.D. - 01/08/2024 3:25 PM CDTAssociated Problem(s): Anemia Of Chronic Renal Disease (Resolved 01/22/2024) Most recent hemoglobin 9.2 on 12/14/2023. * Assessment & Plan Note - Victorina Dowell M.D. - 01/08/2024 3:21 PM CDTAssociated Problem(s): Morbid Obesity (HCC) This is clinically significant due to increased nursing cares, use of resources, and specialty equipment. documented in this encounter Plan of Treatment Upcoming Encounters Date Type Department Care Team (Late st Contact Info) Description 03/20/2024 9:00 AM CDT Appointment Department of Laboratory Medicine in [place], [place] [address] [place] [phone] Aubrey Little M.D. [address] [place] [address] 03/20/2024 10:00 AM CDT Comprehensive Visit Department of Cardiovascular Diseases in [place], [place] [address] [place] [phone] Aubrey Little M.D. [address] [place] [address] 04/13/2024 11:00 AM CDT Comprehensive Visit Department of Neurology in [place], [place] [address] [place] [phone] Florin Montes M.D. 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) Anemia Of Chronic Renal Disease Chronic Respiratory Failure (HCC) Anxiety Generalized Disorder Apnea Sleep Obstructive 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HCC) Atrial Fibrillation Permanent (HCC) Chronic Diastolic (Congestive) Heart Failure (HCC) Depression Major Recurrent Moderate (HCC) Diabetes Mellitus Type 2 With Diabetic Neuropathy (HCC) Gastroesophageal Reflux Disease Without Esophagitis Hyperlipidemia Hypothyroidism On Replacement Immunodeficiency Due To Conditions Classified Elsewhere (HCC) Insomnia Retirement (Current) Anticoagulant Treatment 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 Instructor Use Of Insulin Active (HCC) Morbid Obesity (HCC) Other Urethral 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 Transplant Renal (HCC) Paralysis Diaphragm documented in this encounter Care Teams Bmet Relationship Specialty Start Date End Date Arlette Nath APRN, C.N.P. [address] [place] [phone] PCP - General Family Medicine 12/22/23 03/09/24 documented as of this encounter
--- OUTSIDE RECORDS SUMMARY | 2024-03-15 12:57 | XMS_ITS | Encounter Summary ---
Author Organization [facility] Address [address] [place] [address] Care Team Providers Care Cbx Operator Name Role Phone Arlette Nath APRN C.N.PGeneva Primary Care Provider Reason for Visit * Appointment Request (Routine) - Closed Specialty Diagnoses / Procedures Referred By Conthardy t Referred To Contact Longterm Facility Referral ID Status Reason Start Date Expiration Date Visits Re quested Visits Authorized [id number] Closed 01/05/2024 01/04/2025 1 1 Encounter Details Date Type Department Care Team (Latest Contact Info) Description 01/05/2024 3:00 PM CDT External Outreach Senior Services in [facility] [address] [phone] Victorina Valerio M.D. [address] [place] [phone] Chronic Diastolic (Congestive) Heart Failure (HCC) (Primary [...] as of this encounter Progress Notes * Victorina Dowell M.D. - 01/05/2024 3:00 PM CDT I was asked to see patient today for shortness of breath. However, he was transported to the emergency department before our visit. documented in this encounter Plan of Treatment Upcoming Encounters Date Type Department Care Team (Late st Contact Info) Description 03/20/2024 9:00 AM CDT Appointment Department of Laboratory Medicine in [place], [place] [address] [place] [phone] Aubrey Little M.D. [address] [place] [phone] 03/20/2024 10:00 AM CDT Comprehensive Visit Department of Cardiovascular Diseases in [place], [place] [address] [phone] Aubrey Little M.D. 200 [place] [address] 04/13/2024 11:00 AM CDT Comprehensive Visit Department of Neurology in [place], [place] [address] [phone] Florin Montes M.D. [address] [phone] documented as of this encounter Visit Diagnoses Diagnosis Chronic Diastolic (Congestive) Heart Failure (HCC)- Primary documented in this encounter Care Teams Cbx Operator Relationship Specialty Start Date End Date Arlette Nath APRN, C.N.P. [address] [place] [phone] PCP - General Family Medicine 12/22/23 03/09/24 documented as of this encounter
--- OUTSIDE RECORDS SUMMARY | 2024-03-15 12:57 | XMS_ITS | Encounter Summary ---
Author Organization [facility] Address [address] [place] [address] Care Team Providers Care Sisal Picker Name Role Phone Arlette Nath APRN C.N.PGeneva Primary Care Provider Reason for Visit * Reason Comments Shortness of Breath Encounter Details Date Type Department Care Team (Late st Contact Info) Description 01/05/2024 9:15 AM CDT - 01/05/2024 1:59 PM CDT Emergency [facility] [address] [place] [address] Congestive Heart Failure (HCC) (Primary Dx) Discharge [...] albuterol 90 mcg/actuation inhaler Inhale 2 puffs 4 (four) times a day as needed. 12/14/2023 01/08/2024 albuterol 90 mcg/actuation inhaler Inhale 2 puffs [...] by mouth daily. 30 tablet 07/11/2023 03/07/2024 insulin aspart U-100 (NovoLOG FlexPen) 100 unit/mL (3 mL) injection Inject 1-6 Units under the skin 3 (three) times a day with meals. Sliding scale 12/14/2023 03/07/2024 insulin glargine-yfgn (SEMGLEE) 100 unit/mL (3 mL) injection Inject 20 Units under the skin at bedtime. 12/14/2023 01/08/2024 insulin glargine-yfgn (SEMGLEE) 100 unit/mL (3 mL) injection Inject 20 Units under the skin at bedtime. And 5 units in the a.m. 01/08/2024 01/24/2024 insulin lispro (HumaLOG KwikPen Insulin) 100 [...] Blood Sugar is greater than 399, call . Pharmacy select brand per patient insurance/preference . 12/25/2023 01/24/2024 ipratropium-albuteroL (DUONEB) 0.5-2.5 mg/3 mL nebulizer solution Inhale 3 mL every 6 (six) hours as needed. 12/14/2023 03/07/2024 levothyroxine (SYNTHROID, LEVOTHROID) 100 mcg tablet Take 1 tablet (100 mcg total) by mouth daily. 12/25/2023 03/07/2024 melatonin 3 mg tablet Take 1 tablet (3 mg total) by mouth at bedtime. 30 tablet 12/23/2023 03/07/2024 miconazole (MICATIN) 2 % powderIndications:Sanjeev h Apply 1 Application topically 3 (three) times a day. Apply to groin rash area 3 times daily. 12/25/2023 03/07/2024 morphine 100 mg/5 mL (20 mg/mL) concentrated solutionIndications:N on Pain Indication: Non Pain. Give 2.5 mg every 4 hours prn by mouth for dyspnea x 3 days. Give first dose now. 30 mL 01/04/2024 01/24/2024 mycophenolate (CELLCEPT) 250 mg capsule Take 3 capsules (750 mg total) by mouth every 12 (twelve) hours. 180 capsule 07/11/2023 01/08/2024 mycophenolate (CELLCEPT) 250 mg capsule Take 500 mg by mouth every 12 (twelve) hours. 12/14/2023 01/08/2024 mycophenolate (CELLCEPT) 250 mg capsule Take 2 [...] total) by mouth at bedtime. 30 capsule 01/02/2024 01/21/2024 rosuvastatin (CRESTOR) 10 mg tablet Take 1 [...] 2 (two) times a day. 60 capsule 07/11/2023 03/07/2024 torsemide 40 mg tablet Take 40 mg by mouth 2 (two) times a day. 12/25/2023 01/17/2024 documented as of this encounter Plan of Treatment Upcoming Encounters Date Type Department Care Team (Late st Contact Info) Description 03/20/2024 9:00 AM CDT Appointment Department of Laboratory Medicine in [place], [place] [address] [phone] Aubrey Little M.D. 200 [place] [address] 03/20/2024 10:00 AM CDT Comprehensive Visit Department of Cardiovascular Diseases in [place], [place] [address] [phone] Aubrey Little M.D. 200 [place] [address] 04/13/2024 11:00 AM CDT Comprehensive Visit Department of Neurology in [place], [place] [address] [phone] Florin Montes M.D. [address] [phone] documented as of this encounter Procedures Procedure Name Priority Date/Time Associated Diagnosis Comments DX CHEST AP OR PA AND LATERAL 2 VIEWS RAD - Semiurgent (Fast; most ED patients; some inpatients) 01/05/2024 10:00 AM CDT documented in this encounter Results * DX Chest AP or PA and [...] with pulmonary edema. Central andbibasilar atelectasis. John Zaldivar M.D. IMG DIAGNOSTIC IMAGI NG PROCEDURES documented in this encounter Visit Diagnoses Diagnosis Congestive Heart Failure (HCC)- Primary documented in this encounter Care Teams Sisal Picker Relationship Specialty Start Date End Date Arlette Nath APRN, C.N.P. [address] [place] [phone] PCP - General Family Medicine 12/22/23 03/09/24 documented as of this encounter
--- OUTSIDE RECORDS SUMMARY | 2024-03-15 12:57 | XMS_ITS | Encounter Summary ---
Author Organization [facility] Address [address] [place] [address] Care Team Providers Care Merchandise Adjustment Clerk Name Role Phone Arlette Nath APRN, C.N.P. Primary Care Provider Reason for Visit * Appointment Request (Routine) - Closed Specialty Diagnoses / Procedures Referred By Conthardy t Referred To Contact [facility] Referral ID Status Reason Start Date Expiration Date Visits Re quested Visits Authorized [id number] Closed 01/04/2024 01/03/2025 1 1 Encounter Details Date Type Department Care Team (Latest Contact Info) Description 01/04/2024 3:00 PM CDT External Outreach [facility] in [facility] [id number] [phone] Arlette Nath APRN, C.N.P. 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 - 01/04/2024 3:00 PM CDT ORDERS and INSTRUCTIONS: Dr Prajapati to see tomorrow. Please have her order chest Xray at clinic. Orders Placed This Encounter CBC with Differential, Blood Standing Status: Future Standing Expiration Date: 04/05/2025 Order Specific Question: [id number] Comprehensive Metabolic Panel Standing Status: Future Standing Expiration Date: 04/05/2025 Order Specific Question: [facility] [[id number]] morphine 100 mg/5 mL (20 mg/mL) concentrated solution Sig: Indication: Non Pain. Give 2.5 mg every 4 hours prn by mouth for dyspnea x 3 days. Give first dose now. Dispense: 30 mL Refill: 0 Dispense in original container BNAP predniSONE (DELTASONE) 20 mg tablet Sig: Take 1 tablet (20 mg total) by mouth daily for 5 days. Dispense: 5 tablet Refill: 0 Electronically signed by: Arlette Nath APRN, C.N.P. 01/04/24 6:08 PM CDT documented in this encounter Progress Notes * Arlette Nath APRN, C.N.P. - 01/04/2024 3:00 PM CDT CHIEF COMPLAINT / REASON FOR VISIT [facility] Acute Visit Visit Type: In Person: Face to Face SUBJECTIVE HISTORY OF PRESENT ILLNESS Today's narrative history (obtained from Patient, Nursing, and Family Member): I was asked to see Latrell for increased dyspnea. He has increased edema in his leg. The following medical problems were actively reviewed (including updating overview sections as necessary) and addressed as part of today's visit: #1 Chronic Diastolic (Congestive) Heart Failure (HCC) Overview: He is on oxygen and is short of breath. He has 4 + edema right leg Dry weight at discharge was 133.3 kg. 12/14/23 Weight today 140 kg up 14.75 lbs (6.3 kg) Wt Readings from Last 3 Encounters:01/04/24 140 kg 12/23/23 (!) 136 kg 07/11/23 134 kg 07/04/23 134 kg #2 Transplant Renal (HCC) Overview: Renal transplant 02/04/2014 to address end-stage renal disease on dialysis Follows with [facility]. #3 Edema Overview: 4+ edema right leg. 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 Review of systems was performed, as allowable by patient's cognitive status, and incorporating collateral history if applicable. Relevant positives are noted elsewhere in this note, otherwise negative. OBJECTIVE BP (!) 168/73 Pulse 63 Resp 20 Wt (!) 140 kg SpO2 94% Comment: on O2 BMI 41.77 kg/m?? PHYSICAL EXAM Constitutional Appearance: He is obese. He is ill-appearing. HENT Head: Normocephalic and [...] of motion. Right lower leg: Edema present. Neurological Mental Status: He is alert. ASSESSMENT / PLAN Full background details regarding problems addressed at today's visit can be found in the HPI. Pertinent changes to the care plan based on today's evaluation are explicitly discussed below, otherwiselisted problems are stable and present management will be continued. #1 Chronic Diastolic (Congestive) Heart Failure (HCC) Assessment & Plan: Message to Transplant nephrology. Waiting for response. to see tomorrow. Duoneb will be given qid x 3 days scheduled. Morphine 20 mg/ml, 2.5 mg q 4 hours prn to decrease pre-load of heart, prednisone 20 mg daily x 5 days. BMP, BNAP and CBC in AM . His large body habitus is prohibitive for portable xray in long-term. Gibbs catheter will be inserted tonight. UA/UC obtained. He will be given metolazone 2.5 mg for gentle diuresis along with the Torsemide until the transplant regional maintenance manager returns my call this evening. Dr. Prajapati notified and will see patient tomorrow. #2 Transplant Renal ([facility]) Assessment & Plan: He is currently not on dialysis. Shunt right arm. Elevated creat. CMP in AM. CBC and BNAP. I have contacted Yudi in Transplant. She gave me the number of the Nephrology Transplant provider electronic prepress operator. I will discuss diuresis with them. #3 Edema Assessment & Plan: He is on torsemide 40 mg bid. Consult to Transplant nephrology for diuresis. 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 Stump sleeve in place. Other orders - morphine 100 mg/5 mL (20 mg/mL) concentrated solution; Indication: Non Pain. Give 2.5 mg every 4 hours prn by mouth for dyspnea x 3 days. Give first dose now., NormalDispense in original container - predniSONE (DELTASONE) 20 mg tablet; Take 1 tablet (20 mg total) by mouth daily for 5 days., Starting Tue01/04/2024, Until Tue01/09/2024, Normal - CBC with Differential, Blood; Future; Expected date: 01/04/2024 - Comprehensive Metabolic Panel; Future; Expected date: 01/04/2024 PATIENT EDUCATION Ready to learn, no apparent learning barriers were identified; learning preferences include listening. Explained diagnosis and treatment plan; patient/child/caregiver expressed understanding of the content. BILLING Billing based on: Time, including the following tasks: reviewing the electronic medical record, updating the EPIC Problem List, reviewing written facility- provided information, reviewing information in facility EMR, medication reconciliation, obtaining collateral history from family member(s), commu nicating with specialty service(s), placing orders, communicating orders to facility. Total time 40minutes. documented in this encounter Miscellaneous Notes * Assessment & Plan Note - Arlette Nath APRN, C.N.P. - 01/04/2024 5:16 PM CDT Associated Problem(s): Chronic Diastolic (Congestive) Heart Failure (HCC) Message to Transplant nephrology. Waiting for response. MD to see tomorrow. Duoneb will be given qid x 3 days scheduled. Morphine 20 mg/ml, 2.5 mg q 4 hours prn to decrease pre-load of heart, prednisone 20 mg daily x 5 days. BMP, BNAP and CBC in AM . His large body habitus is prohibitive for portable xray in long-term. Gibbs catheter will be inserted tonight. UA/UC obtained. He will be given metolazone 2.5 mg for gentle diuresis along with the Torsemide until the transplant regional maintenance manager returns my call this evening. Dr. Prajapati notified and will see patient tomorrow. * Assessment & Plan Note - Arlette Nath APRN, C.N.P. 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 Stump sleeve in place. * Assessment & Plan Note - Arlette Nath APRN, C.N.P. - 01/04/2024 5:04 PM CDT Associated Problem(s): Edema He is on torsemide 40 mg bid. Consult to Transplant nephrology for diuresis. * Assessment & Plan Note - Arlette Nath APRN, C.N.P. - 01/04/2024 4:27 PM CDT Associated Problem(s): Transplant Renal (HCC) He is currently not on dialysis. Shunt right arm. Elevated creat. CMP in AM. CBC and BNAP. I have contacted Yudi in Transplant. She gave me the number of the Nephrology Transplant provider electronic prepress operator. I will discuss diuresis with them. documented in this encounter Plan of Treatment Upcoming Encounters Date Type Department Care Team (Late st Contact Info) Description 03/20/2024 9:00 AM CDT Appointment Department of Laboratory Medicine in [place], [place] [address] [phone] Aubrey Little M.D. [address] [place] [phone] 03/20/2024 10:00 AM CDT Comprehensive Visit Department of Cardiovascular Diseases in [place], [place] [address] [phone] Aubrey Little M.D. 200 [place] [phone] 04/13/2024 11:00 AM CDT Comprehensive Visit Department of Neurology in [place], [place] [address] [phone] Florin Montes M.D. 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 [address] [place] [phone] PCP - General Family Medicine 12/22/23 03/09/24 documented as of this encounter
--- OUTSIDE RECORDS SUMMARY | 2024-03-15 12:57 | XMS_ITS | Encounter Summary ---
Author Organization [facility] Address [address] [place] [address] Care Team Providers Care Director Of Safety Name Role Phone Arlette Nath EDUARDO, C.N.P. Primary Care Provider Reason for Visit * Reason Comments USP medication reconciliation * Appointment Request (Routine) - Closed Specialty Diagnoses / Procedures Referred By Armaan howell Referred To Contact Snf Facility Referral ID Status Reason Start Date Expiration Date Visits Re quested Visits Authorized [id number] Closed 12/22/2023 12/21/2024 2 2 Encounter Details Date Type Department Care Team (Latest Contact Info) Description 12/23/2023 10:00 AM CDT External Outreach [facility] in [facility] [address] [phone] Manoj Davalos APRN, C.N.P., M.S.N. 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 (HCC); Chronic Diastolic (Congestive) Heart Failure (HCC); Depression Major Recurrent Moderate (HCC); Diabetes Mellitus Type 2 With Diabetic Neuropathy (HCC); Atrial Fibrillation Permanent (HCC); Morbid Obesity (HCC); Weakness General; Advanced Care Planning; Fpc Stay Certification Exam; Polypharmacy; Rash; Anemia Of Chronic Renal Disease; Anxiety Generalized Disorder; Apnea Sleep Obstructive; 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); Gastroesophageal Reflux Disease Without Esophagitis; Hyperlipidemia; Hypertension Secondary To Other Renal Disorders; Hypothyroidism On Replacement; Head Esthetician Use Of Insulin Active (HCC); Major Depressive Disorder Single Episode Unspecified; Malignant Neoplasm Of Skin Basal Cell Carcinoma; Insomnia; Transplant Renal (HCC); Bradycardia; Head Esthetician (Current) Anticoagulant Treatment; Sleep Disorder Social History Tobacco Use Types Packs/Day Years [...] Sign Reading Time Taken Comments Blood Pressure 134/67 12/23/2023 1:32 PM CDT Pulse 61 12/23/2023 1:32 PM CDT Temperature 36.7 ??C (98 ??F) 12/23/2023 1:32 PM CDT Respiratory Rate 17 12/23/2023 1:32 PM CDT Oxygen Saturation 96% 12/23/2023 1:32 PM CDT ra Inhaled Oxygen Concentration - - Weight 136 kg (300 lb 6.4 oz) 12/23/2023 1:32 PM CDT Height - - Body Mass Index 40.74 07/04/2023 6:11 PM [employer] documented in this encounter H&P Notes * Manoj Davalos APRN, C.N.P., M.S.N. - 12/23/2023 10:00 AM CDT Images from the original note were not included. CHIEF COMPLAINT / REASON FOR VISIT [facility] Follow Up Visit Visit Type: In Person: Face to Face SUBJECTIVE HISTORY OF PRESENT ILLNESS Cleveland Cortez is a 73-year-old male resident admitted to [facility]. Past medical history is significant for Diego Guthrie is a(n) 73 y.o. with a history of DM Type II, s/p left BKA, CKD s/p renal transplant in 2013 (currently stage 4 CKD), and chronic diastolic CH. BP skills home use Patient was admitted to [facility] 11/18-11/22/2023 with shortness of breath, increasing edema, MICHELLE and acute CHF exacerbation. In the hospital, patient was noted to be dyspneic and retaining CO2, required BIPAP 11/18-11/19. Chest x-ray showed basilar hetergeneous airspace opacities likely atelectasis, but superimposed infection vs edema in differential. He was started on a lasix infusion on admission for acute on chronic CHF. Bradycardia noted to the 30s so carvedilol held. Hedeveloped acute urinary retention with 1200 mL urine, bose placed. He had slight improvement in his creatinine, but he had recurrent worsening hypercapnia with somnolence and confusion on 11/22/23 requiring BIPAP again. Decision was made to transfer to [facility] for higher level of care and nephrology consult. At [place], patient developed acute kidney injury with Cr peaking 3.86 up from baseline 2.5-2.8 . MICHELLE multifactorial due to component of urinary obstruction now s/p Bose, acute on chronic HFpEF responding to diuresis, acute tubular injury from bradycardia.Transplant rejection considered but felt franchesca unlikely. Nephrology discussed dialysis on several occasions and patient adamantly against dialysis. Cautiously resumed oral diuretics, slowly increasing dose as his kidney function tolerates. Tolerated dieuresis well and creatnine 12/14/23 was 2.46 back to baseline. Bose was discontinued beforedischarge and PVRs have been appropriate . Due to ongoing respiratory failure, CT Chest done to eval fluid vs pneumonia with bilateral ill defined ground glass infiltrates. Respiratory status remained tenuous following days and supported on bipap. ID added treated with cefepime and doxycycline. 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 Pulmonology ordered for discharge.Completedantibiotics prior to discharge.Oxygen weaned to 2 litres NC. Given pancytopenia, infection, decreased MMF to 500mg BID(11/25).Continue tacrolimus 0.5mg BID - Lasttacrolimus level was 5.0 on 12/13/2023 . Coreg dose reduced due to bradycardia and patient discharged with Torsemide 40 mg BID. After Hospital Follow Up Appointment(s) Contact [facility] to schedule your outpatient Sleep Consult at [phone]. When to follow up: 4 to 6 weeks When is patient being discharged?: Other/Unknown After Hospital Follow Up Appointment(s) Contact [facility] to schedule a sleep medicine consult for your initial hospital BIPAP follow-up at [phone]. Please schedule with Dr. Nunn, Dr. Caraballo, Dr. Yuan, Araceli Fields CNP, or Nita Manriquez CNP When to follow up: 4 to 6 weeks When is patient being discharged?: Other/Unknown Today's narrative history (obtained from Patient, Nursing, and PT/OT): Patient is seen today for [facility] medication reconciliation in post hospital follow-up. The following issues were discussed: Patient reported inadequate sleep an he is requesting for sleep aid. Agreed to trying melatonin at bedtime. Patient mentioned possible constipation with hard stools. Okay with increasing bowel regimen. He endorses adequate sleep at night, appetite, [...] Disease Stage 4 Glomerular Filtration Rate 15-29 ([facility]) Overview: In the setting of renal transplant. Most recent GFR 28. Follows with renal transplant at [facility]. Lab Results Component Value Date CREATININE 2.46 (H) 12/14/2023 #2 Anemia Iron Deficiency Overview: Lab Results Component Value Date WBC 3.5 (L) 12/14/2023 HGB 9.2 (L) 12/14/2023 HCT 30.7 (L) 12/14/2023 MCV 82 12/14/2023 PLT 79 (L) 12/14/2023 #3 Immunodeficiency Due To Conditions Classified Elsewhere ([facility]) Overview: Immunosuppression related to right renal transplant 2014 Mycophenolate and tacrolimus. #4 Pressure Injury (Ulcer) Of Right Ankle Stage 2 ([facility]) Overview: Ulceration right lateral lower leg felt secondary to pressure from high top shoe. #5 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 ([facility]) Overview: Left BKA secondary to osteomyelitis 12/17/2005 Qa Test Lead limb lab #6 Chronic Diastolic (Congestive) Heart Failure ([facility]) Overview: He is normotensive and hemodynamically stable on his current medications. Wt Readings from Last 3 Encounters: 12/23/23 (!) 136 kg 07/11/23 134 kg 07/04/23 134 kg #7 Depression Major Recurrent Moderate (HCC) Overview: On lexapro #8 Diabetes Mellitus Type 2 With Diabetic Neuropathy ([facility]) Overview: Recent A1C Status: Final result Component [...] with pregabalin. Diagnosis Maintenance Updates Aug 2023 #9 Atrial Fibrillation Permanent ([facility]) Overview: Rate control recently changed to nifedipine from carvedilol due to difficult symptomatic bradycardia. He is on apixaban for anticoagulation. Dose may be subtherapeutic. #10 Morbid Obesity (HCC) Overview: BMI Readings from Last 1 Encounters: 12/23/23 40.74 kg/m?? #11 Weakness General Overview: This is multifactorial and related to recent acute infection, deconditioning, recent hospitalization, and immunodeficiency. #12 Advanced Care Planning Overview: Full code #13 Fpc Stay Certification Exam Overview: Short-term stay #14 Polypharmacy Overview: All medications reviewed at least bimonthly for adverse events, interactions, and continued indication/appropriateness. Reduction as able. #15 Rash #16 Anemia Of Chronic Renal Disease #17 Anxiety Generalized Disorder Overview: On lexapro #18 Apnea Sleep Obstructive Overview: Using the CPAP #19 Diabetes Mellitus Type 2 Ulcer Foot ([facility]) Overview: Lab Results Component Value Date HGBA1C 7.0 (H) 11/19/2023 Goal HgbA1C: <8.0 Oral: None Injectable: Insulin lispro and insulin glargine BG check frequency: 4 times daily #20 Gastroesophageal Reflux Disease Without Esophagitis Overview: Managed on protonix #21 Hyperlipidemia Overview: On rosuvastatin in the setting of diabetes. Lipids 06/23/2023 5:58 AM CHOL 76 TRIG 83 HDL 36 TTLCHOLHDLRT 2.11 #22 Hypertension Secondary To Other Renal Disorders Overview: Treatment: Amlodipine, torsemide and carvedilol Goal: 110-130 #23 Hypothyroidism On Replacement Overview: Managed on levothyroxine 100 mcg daily Lab Results Component Value Date TSH 4.86 (H) 10/26/2023 #24 Head Esthetician Use Of Insulin Active (HCC) Overview: He uses long and short-acting insulins. #25 Major Depressive Disorder Single Episode Unspecified Overview: Stable on Lexapro #26 Malignant Neoplasm Of Skin Basal Cell Carcinoma #27 Insomnia Overview: Latent sleep initiation. #28 Transplant Renal (HCC) Overview: Renal transplant 02/04/2014 to address end-stage renal disease on dialysis Follows with [facility]. #29 Bradycardia Overview: Hospitalized for symptomatic bradycardia 06/22 to 06/24/2023. Carvedilol transitioned to nifedipine. #30 Correction (Current) Anticoagulant Treatment Overview: On apixaban in the setting of atrial fibrillation. #31 Sleep Disorder Overview: CHANELL using CPAP Past medical/surgical history, social history, medications, and allergies were reviewed and are visible in the Encounter view. Review of systems was performed, as allowable by patient's cognitive status, and incorporating collateral history if applicable. Relevant positives are noted elsewhere in this note, otherwise negative. OBJECTIVE BP 134/67 Pulse 61 Temp 36.7 ??C Resp 17 Wt (!) 136 kg SpO2 96% Comment: ra BMI 40.74 kg/m?? Constitutional General: He is not in [...] Disease Stage 4 Glomerular Filtration Rate 15-29 ([facility]) Assessment & Plan: Continue to be followed up at [facility]. Orders: - Basic Metabolic Panel; Future; Expected date: 12/27/2023 #2 Anemia Iron Deficiency Assessment & Plan: Asymptomatic. We will rechecked CBC next week. Orders: - CBC with Differential, Blood; Future; Expected date: 12/27/2023 #3 Immunodeficiency Due To Conditions Classified Elsewhere ([facility]) #4 Pressure Injury (Ulcer) Of Right Ankle Stage 2 ([facility]) #5 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 ([facility]) Assessment & Plan: Left BKA intact with prosthetic in place. Continue care plan #6 Chronic Diastolic (Congestive) Heart Failure ([facility]) Assessment & Plan: Stable. Renal function has been stable on current dose of torsemide. #7 Depression Major Recurrent Moderate ([facility]) Assessment & Plan: Patient verbalized am good and getting better. We will continue escitalopram. #8 Diabetes Mellitus Type 2 With Diabetic Neuropathy ([facility]) #9 Atrial Fibrillation Permanent ([facility]) Assessment & Plan: HR controlled ranging from 53-61. Continue care plan #10 Morbid Obesity ([facility]) Assessment & Plan: Maintain good nutrition for healing and health #11 Weakness General Assessment & Plan: PT/OT to evaluate and treat. #12 Advanced Care Planning Assessment & Plan: Patient verbalized he will like to be full code status while in the nursing #13 Fpc Stay Certification Exam Assessment & Plan: Patient remains appropriate SNF resident. Order summary paperwork signed following our visit, this included review of medications and orders. Current comorbidities, ADL need/level of debility requires skilled care/therapy. Medications and labs all reviewed and appropriate related to comorbidities, unless otherwise indicated. Physician order sheet signed. Continue PT/OT therapy, nutrition intervention, skin protection, and fall prevention. #14 Polypharmacy #15 Rash - miconazole (MICATIN) 2 % powder; Apply 1 Application topically 3 (three) times a day. Apply to groin rash area 3 times daily., Starting 12/25/2023, No Print #16 Anemia Of Chronic Renal Disease #17 Anxiety Generalized Disorder Assessment & Plan: Nursing to monitor anxiety post hospitalization. Continue escitalopram #18 Apnea Sleep Obstructive Assessment & Plan: No concerns, oxygen saturation ranging from 96-99% on 2.5 L nasal cannula. We will continue CPAP use. 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 We will continue care plan. Re-evaluate during MDadmission. #20 Gastroesophageal Reflux Disease Without Esophagitis Assessment & Plan: Asymptomatic, continue care plan #21 Hyperlipidemia Assessment & Plan: Continue rosuvastatin #22 Hypertension Secondary To Other Renal Disorders Assessment & Plan: Blood pressure normotensive. Continue care plan. #23 Hypothyroidism On Replacement Assessment & Plan: Rechecked TSH 6-8 weeks #24 Correction Use Of Insulin Active ([facility]) Assessment & Plan: Continue insulin for blood sugar control #25 Major Depressive Disorder Single Episode Unspecified Assessment & Plan: Verbalized good mood. Continue lexapro #26 Malignant Neoplasm Of Skin Basal Cell Carcinoma #27 Insomnia Assessment & Plan: Patient verbalized inadequate sleep. He agrees to starting melatonin at bedtime. We will re-evaluate at m.d. admission #28 Transplant Renal ([facility]) Assessment & Plan: He follows with renal transplant Service at the [facility]. On tacrolimus and mycophenolate. #29 Bradycardia Assessment & Plan: Bradycardia in the 50s. Nursing will continue to monitor #30 Head Esthetician (Current) Anticoagulant Treatment Assessment & Plan: Continue apixaban #31 Sleep Disorder Other orders - melatonin 3 mg tablet; Take 1 tablet (3 mg total) by mouth at bedtime., Starting Tue12/23/2023, Normal - sennosides (senna) 8.6 mg tablet; Take 2 tablets (17.2 mg total) by mouth at bedtime., Starting Tue12/23/2023, Normal - insulin lispro (HumaLOG KwikPen Insulin) 100 unit/mL injection; Inject 1-6 Units under the skin 3(three) times a day with meals. Per Sliding [...] call MD. Pharmacy select brand per patient insurance/preference., Starting 12/25/2023, No Print - pantoprazole (PROTONIX) 40 mg EC tablet; Take 1 tablet (40 mg total) by mouth every morning before breakfast., Starting 12/25/2023, No Print - torsemide 40 mg tablet; Take 40 mg by mouth 2 (two) times a day., Starting 12/25/2023, Until Tue01/24/2024, No Print - levothyroxine (SYNTHROID, LEVOTHROID) 100 mcg tablet; Take 1 tablet (100 mcg total) by mouth daily., Starting 12/25/2023, Until Tue01/24/2024, No Print PATIENT EDUCATION Ready to learn, no apparent [...] - Manoj Davalos APRN, C.N.P., M.S.N. - 12/25/2023 8:16 AM CDTAssociated Problem(s): Weakness General PT/OT to evaluate and treat. * Assessment & Plan Note - Manoj Davalos APRN, C.N.P., M.S.N. - 12/25/2023 8:15 AM CDTAssociated Problem(s): Transplant Renal (HCC) He follows with renal transplant Service at the [facility]. On tacrolimus and mycophenolate. * Assessment & Plan Note - Manoj Davalos APRN, C.N.Vidal, M.S.N. - 12/25/2023 8:14 AM CDTAssociated Problem(s): Morbid Obesity (HCC) Maintain good nutrition for healing and health * Assessment & Plan Note - Manoj Davalos APRN, C.N.Vidal, M.S.N. - 12/25/2023 8:14 AM CDTAssociated Problem(s): Major Depressive Disorder Single Episode Unspecified (Resolved 01/22/2024) Verbalized good mood. Continue lexapro * Assessment & Plan Note - Manoj Davalos APRN, C.N.PGeneva, M.S.N. - 12/25/2023 8:14 AM CDTAssociated Problem(s): Correction Use Of Insulin Active (HCC) Continue insulin for blood sugar control * Assessment & Plan Note - Manoj Davalos APRN, C.N.PGeneva, M.S.N. - 12/25/2023 8:13 AM CDTAssociated Problem(s): Head Esthetician (Current) Anticoagulant Treatment Continue apixaban * Assessment & Plan Note - Manoj Davalos APRN, C.NArsh, M.S.N. - 12/25/2023 8:13 AM CDTAssociated Problem(s): Insomnia Patient verbalized inadequate sleep. He agrees to starting melatonin at bedtime. We will re-evaluate at m.d. admission * Assessment & Plan Note - Manoj Davalos APRN, C.NArsh, M.S.N. - 12/25/2023 8:12 AM CDTAssociated Problem(s): Hypothyroidism On Replacement Rechecked TSH 6-8 weeks * Assessment & Plan Note - Manoj Davalos APRN, C.NArsh, M.S.N. - 12/25/2023 8:10 AM CDTAssociated Problem(s): Hypertension Secondary To Other Renal Disorders Images from the original note were not included. Blood pressure normotensive. Continue care plan. * Assessment & Plan Note - Manoj Davalos APRN, C.N.PGeneva, M.S.N. - 12/25/2023 8:08 AM CDTAssociated Problem(s): Hyperlipidemia Continue rosuvastatin * Assessment & Plan Note - Manoj Davalos APRN, C.NArsh, M.S.N. - 12/25/2023 8:07 AM CDTAssociated Problem(s): Gastroesophageal Reflux Disease Without Esophagitis Asymptomatic, continue care plan * Assessment & Plan Note - Manoj Davalos APRN, C.NArsh, M.S.N. 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 Blood sugar more controlled with current regimen. We will continue care plan. Re-evaluate during MDadmission. * Assessment & Plan Note - Manoj Davalos APRN, C.NArsh, M.S.N. - 12/25/2023 8:04 AM CDTAssociated Problem(s): Depression Major Recurrent Moderate (HCC) Patient verbalized am good and getting better. We will continue escitalopram. * Assessment & Plan Note - Manoj Davalos APRN, C.NGenevaPGeneva, M.S.N. - 12/25/2023 8:03 AM CDTAssociated Problem(s): 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 Rate 15-29 (HCC) Continue to be followed up at [facility]. * Assessment & Plan Note - Manoj Davalos APRN, C.N.P., M.S.N. - 12/25/2023 8:02 AM CDTAssociated Problem(s): Chronic Diastolic (Congestive) Heart Failure (HCC) Stable. Renal function has been stable on current dose of torsemide. * Assessment & Plan Note - Manoj Davalos APRN, C.N.P., M.S.N. - 12/25/2023 8:02 AM CDTAssociated Problem(s): Bradycardia (Resolved 01/22/2024) Bradycardia in the 50s. Nursing will continue to monitor * Assessment & Plan Note - Manoj Davalos APRN, C.NArsh, M.S.N. - 12/25/2023 8:01 AM CDTAssociated Problem(s): Atrial Fibrillation Permanent (HCC) HR controlled ranging from 53-61. Continue care plan * Assessment & Plan Note - Manoj Davalos APRN, C.NArsh, M.S.N. - 12/25/2023 8:00 AM CDTAssociated Problem(s): Apnea Sleep Obstructive No concerns, oxygen saturation ranging from 96-99% on 2.5 L nasal cannula. We will continue CPAP use. * Assessment & Plan Note - Manoj Davalos APRN, C.N.P., M.S.N. - 12/25/2023 7:59 AM CDTAssociated Problem(s): Anxiety Generalized Disorder Nursing to monitor anxiety post hospitalization. Continue escitalopram * Assessment & Plan Note - Manoj Davalos APRN, C.N.P., M.S.N. - 12/25/2023 7:58 AM CDTAssociated Problem(s): Anemia Iron Deficiency Asymptomatic. We will rechecked CBC next week. * Assessment & Plan Note - Manoj Davalos APRN, C.N.P., M.S.N. 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 Continue care plan * Assessment & Plan Note - Manoj Davalos APRN, C.N.P., M.S.N. - 12/23/2023 1:34 PM CDTAssociated Problem(s): Fpc Stay Certification Exam (Resolved 02/16/2024) Patient remains [...] - Manoj Davalos APRN, C.N.P., M.S.N. - 12/23/2023 1:34 PM CDTAssociated Problem(s): Advanced Care Planning Patient verbalized he will like to be full code status while in the nursing documented in this encounter Plan of Treatment Upcoming Encounters Date Type Department Care Team (Late st Contact Info) Description 03/20/2024 9:00 AM CDT Appointment Department of Laboratory Medicine in [place], [place] [address] [place] [phone] Aubrey Little M.D. [address] [place] [phone] 03/20/2024 10:00 AM CDT Comprehensive Visit Department of Cardiovascular Diseases in [place], [place] [address] [phone] Aubrey Little M.D. [address] [place] [phone] 04/13/2024 11:00 AM CDT Comprehensive Visit Department of Neurology in [place], [place] [address] [phone] Florin Montes M.D. [address] [phone] documented as of this encounter Visit Diagnoses Diagnosis 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 Rate 15-29 (HCC)- Primary Anemia Iron Deficiency Immunodeficiency Due To Conditions Classified Elsewhere (HCC) Pressure Injury (Ulcer) Of Right Ankle Stage 2 (HCC) 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 (HCC) Chronic Diastolic (Congestive) Heart Failure (HCC) Depression Major Recurrent Moderate (HCC) Diabetes Mellitus Type 2 With Diabetic Neuropathy (HCC) Atrial Fibrillation Permanent (HCC) Morbid Obesity (HCC) Weakness General Advanced Care Planning Fpc Stay Certification Exam Polypharmacy Rash Anemia Of Chronic Renal Disease Anxiety Generalized Disorder Apnea Sleep Obstructive 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 [address] [place] [phone] PCP - General Family Medicine 12/22/23 03/09/24 documented as of this encounter
--- OUTSIDE RECORDS SUMMARY | 2024-03-15 12:58 | XMS_ITS | Continuity of Care Document ---
Author Organization [facility] Address [address] [place] [address] Phone Care Team Providers Care Bench Machine Operator Name Role Phone Bebo Peñaloza DO Unavailable [...] [facility], [address], [place], [address], [place] tel:[phone] No Information 3 Jh Lagunas. [facility] [address], [place], [address], [place]. tel:[phone] Family History Family Member Type Diagnosis Age [...]
--- OUTSIDE RECORDS SUMMARY | 2024-03-15 12:58 | XMS_ITS ---
Author Organization [place] Address [facility] [place] [address] Care Team Providers Care Shredder Picker Name Role Phone Momo Forbes MD Primary Care Provider Satish Gómez MD Unavailable Jane Francis MD Unavailable [phone] Jane Francis MD Unavailable [phone] Active Problems Problem Noted Date Diagnosed Date [...] treatments are documented for this patient in [facility]. Treatments may have been administered in another system. Lifetime Dose Tracking * Chemical Lifetime Dose Automatic Entry Manual Entr y Total Air Kerma 190 mGy 190 mGy 0 [...]
--- OUTSIDE RECORDS SUMMARY | 2024-03-15 12:58 | XMS_ITS | Encounter Summary ---
Author Organization [place] Address [address] [place] [address] Care Team Providers Care Chief Reservoir Engineering Name Role Phone Momo Forbes MD Primary Care Provider [phone] Satish Gómez MD Unavailable Jane Francis MD Unavailable [phone] Jane Francis MD Unavailable [phone] Encounter Details Date Type Department Care Team (Late st Contact Info) Description 11/02/2022 Orders Only [facility] [address] [place] [phone] Gino Wan Social History Tobacco Use Types [...] Care Team (Late st Contact Info) Description 05/31/2024 3:05 PM CDT Office Visit [facility] [address] [place] [phone] Satish Gómez MD [address] [address] Jane Francis MD [address] [place], [place] [id number] documented as of this encounter Visit Diagnoses Not on filedocumented in this encounter Care Teams Chief Reservoir Engineering Relationship Specialty Start Date End Date Momo Forbes MD PCP - General Family Practice 01/02/14 Satish Gómez MD [address] [place] [address] Nephrology 10/07/23 Jane Francis MD [address] [place] [address] Nephrology 10/07/23 Jane Francis MD [address] [place] [address] Nephrology 01/30/24 documented as of this encounter
--- OUTSIDE RECORDS SUMMARY | 2024-03-15 12:58 | XMS_ITS | Encounter Summary ---
Author Organization [place] Address [address] [place] [address] Care Team Providers Care Retina Subspecialist Name Role Phone Momo Forbes MD Primary Care Provider Satish Gómez MD Unavailable Jane Francis MD Unavailable [phone] Jane Francis MD Unavailable [phone] Encounter Details Date Type Department Care Team (Late st Contact Info) Description 10/19/2022 External Order Results [facility] [address] [place] [address] Outside, Provider Social History Tobacco Use Types [...] Coronavirus/COVID-19? 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 BOX TENDER documented as of this encounter Plan of Treatment Upcoming Encounters Date Type Department Care Team (Late st Contact Info) Description 05/31/2024 3:05 PM CDT Office Visit [facility] [address] [place] [address] Satish Gómez MD [address] [address] Jane Francis MD [address] [place] [address] documented as of this encounter Visit Diagnoses Not on filedocumented in this encounter Care Teams Retina Subspecialist Relationship Specialty Start Date End Date Momo Forbes MD PCP - General Family Practice 01/02/14 Satish Gómez MD [address] [place] [address] Nephrology 10/07/23 Jane Francis MD [address] [place] [address] Nephrology 10/07/23 Jane Francis MD [address] [place] [address] Nephrology 01/30/24 documented as of this encounter
--- OUTSIDE RECORDS SUMMARY | 2024-03-15 12:58 | XMS_ITS | Encounter Summary ---
Author Organization [place] Address [address] [place] [address] Care Team Providers Care Climatology Professor Name Role Phone Momo Forbes MD Primary Care Provider [phone] Satish Gómez MD Unavailable Jane Francis MD Unavailable [phone] Jane Francis MD Unavailable [phone] Encounter Details Date Type Department Care Team (Late st Contact Info) Description 10/26/2022 External Order Results [facility] [address] [place] [address] Outside, Provider Social History Tobacco Use Types [...] Coronavirus/COVID-19? Unable to assess 10/28/2022 12:48 PM SHAREPOINT ARCHITECT documented as of this encounter Plan of Treatment Upcoming Encounters Date Type Department Care Team (Late st Contact Info) Description 05/31/2024 3:05 PM CDT Office Visit [facility] [address] [place] [phone] Satish Gómez MD [address] [facility] [address] [place] [address] Jane Francis MD [address] [place], [place] [address] documented as of this encounter Procedures Procedure Name Priority Date/Time Associated Diagnosis Comments CBC WITH PLATELETS & DIFFERENTIAL Routine 10/26/2022 11:25 AM SHAREPOINT ARCHITECT TACROLIMUS BY TANDEM MASS SPECTROMETRY Routine 10/26/2022 11:25 AM SHAREPOINT ARCHITECT BASIC METABOLIC PANEL Routine 10/26/2022 11:25 AM SHAREPOINT ARCHITECT documented in this encounter Results * Tacrolimus by Tandem Mass Spectrometry (10/26/2022 11:25 AM SHAREPOINT ARCHITECT) Pathologist [facility] Tacrolimus([id number]) (External) 7.6 ng/mL NON-INTERFACE D (ONBASE SCANS) Blood 10/26/2022 11:2 5 AM SHAREPOINT ARCHITECT Narrative JESSICA PFT - 11/01/2022 1:42 PM CDT Verified by Yudi Ruano on 11/01/2022. Joseph Quintana MD LAB - BLOOD SURYA HURST JESSICA PFT NON-INTERFACED (ONBASE SCANS) * (ABNORMAL) CBC with Platelets & Differential (10/26/2022 11:25 AM SHAREPOINT ARCHITECT) Pathologist [facility] WBC Count (External) 6.29 4.50 - 11.00 [...] BLOOD SPECIMEN / Unknown 10/26/2022 11:25 AM SHAREPOINT ARCHITECT Narrative JESSICA PFT - 10/27/2022 11:03 AM SHAREPOINT ARCHITECT Verified by Praful Huff on 10/27/2022. Joseph Quintana MD LAB - BLOOD SURYA HURST JESSICA [place] NON-INTERFACED (ONBASE SCANS) * (ABNORMAL) Basic metabolic panel (10/26/2022 11:25 AM SHAREPOINT ARCHITECT) Sodium (External) 140 135 - 149 [...] BLOOD SPECIMEN / Unknown 10/26/2022 11:25 AM SHAREPOINT ARCHITECT Narrative JESSICA PFT - 10/27/2022 11:03 AM SHAREPOINT ARCHITECT Verified by Praful Huff on 10/27/2022. Joseph Quintana MD LAB - BLOOD SURYA HURST [facility] Organization Address City/State/ZIP Co de Phone Number JESSICA PFKofi NON-INTERFACED (ONBASE SCANS) documented in this encounter Visit Diagnoses Not on filedocumented in this encounter Care Teams Climatology Professor Relationship Specialty Start Date End Date Momo Forbes MD PCP - General Family Practice 01/02/14 Satish Gómez MD [address] [address] Nephrology 10/07/23 Jane Francis MD [address] [place], [place] [phone] Nephrology 10/07/23 Jane Francis MD [address] [place], [place] [phone] Nephrology 01/30/24 documented as of this encounter
--- OUTSIDE RECORDS SUMMARY | 2024-03-15 12:58 | XMS_ITS | Clinical Summary ---
Author Organization [facility] Address [place], [place] [address] Care Team Providers Care Traffic Court Magistrate Name Role Phone Momo Forbes MD Primary Care Provider + [facility] Unavailable [phone] Allergies Active Allergy Reactions Criticality Noted Date Comments Lisinopril Cough 08/17/2023 Medications Medication Sig Dispensed Refills Start Date End Date Status rosuvastatin (CRESTOR) 10 mg tabletIndications:Hy perlipidemia, unspecified hyperlipidemia type TAKE ONE TABLET BY MOUTH EVERY DAY AT BEDTIME 90 tablet 1 07/11/2018 Active escitalopram oxalate (LEXAPRO) 20 mg tablet Take 20 mg by mouth once daily. Active tacrolimus (PROGRAF) 0.5 mg capsule Take 0.5 mg by mouth two times daily. Active tamsulosin (FLOMAX) 0.4 mg capsule Take 0.4 mg by mouth two times daily. 11/02/2021 Active pantoprazole (PROTONIX) 40 mg delayed-release tablet Take 40 mg by mouth once daily. Active Eliquis 2.5 mg tabletIndications:Ch ronic atrial fibrillation (HC) Take 1 Tablet (2.5 mg) by mouth two times daily. 60 Tablet 06/24/2023 Active levothyroxine (SYNTHROID) 100 mcg tablet Take 100 mcg by mouth before breakfast. Active BiPapIndications:Res trictive lung disease,Diaphragm paralysis,Acute hypoxic on chronic hypercapnic respiratory failure (HC) BIPAP-S machine for home use at pressure: 12/6 cmH20 , choice of mask, lifetime length of need 99 months, daily use with all sleep. Bleed in O2 to keep SaO2 > 89% 1 Each 12/09/2023 Active benzonatate (TESSALON) 100 mg capsuleIndications:A cute respiratory failure with hypoxia and hypercapnia (HC) Take 1 Capsule (100 mg) by mouth 3 times daily if needed for Cough. 12/14/2023 Active albuterol-ipratropiu m (DUONEB) (2.5-0.5 mg) in 3 mL NEBULIZATION solutionIndications: MICHELLE (acute kidney injury) (HC) Inhale 3 mL via a nebulizer every 6 hours if needed for Shortness of Breath 2nd choice. 12/14/2023 Active guaiFENesin (MUCINEX) 600 mg Extended-Release tabletIndications:Ac jake hypoxic on chronic hypercapnic respiratory failure (HC) Take 1 Tablet (600 mg) by mouth 2 times daily if needed for Expectoration. 12/14/2023 Active mycophenolate (CellCept) 250 mg capsuleIndications:R enal transplant, status post Take 2 Capsules (500 mg) by mouth every 12 hours. 12/14/2023 Active insulin aspart, U-100, (NOVOLOG FLEXPEN) 100 unit/mL (3 mL) penIndications:Insul in dependent type 2 diabetes mellitus (HC) Give subcutaneous TID with meals per blood glucose (mg/dL). Don't give corrective dose for PRN, post-prandial or nocturnal glucose checks unless ordered. Blood Glucose.....Dose <70............... See Hypoglycemia Protocol 70-149..........No insulin, give prandial insulin, if ordered 150-199........1 unit 200-249........2 units 250-299........3 units 300-349........4 units 350-399........5 units 400 or greater....6 units & call MD 12/14/2023 Active Additional Information Patient taking differently: 0-14 unit Subcutaneous THREE TIMES DAILY BEFORE MEALS, Give subcutaneous TID with meals per blood glucose (mg/dL). Don't give corrective dose for PRN, post-prandial or nocturnal glucose checks unless ordered.Blood Glucose.....Dose <70...............See Hypoglycemia Protocol 70-149..........No insulin, give prandial insulin, if [id number]........4 [id number]........6 -901........8 -078........10 [id number]........12 [id number] or greater....14 units & call MD, Reported on 01/05/2024 albuterol HFA (PRO-AIR; VENTOLIN; PROVENTIL) 90 mcg/actuation inhalerIndications:A cute respiratory failure with hypoxia and hypercapnia (HC) Inhale 2 Puffs by mouth 4 times daily if needed for Shortness of Breath 1st choice. 12/14/2023 Active acetaminophen (TYLENOL EXTRA STRGTH) 500 mg tablet Take 1,000 mg by mouth every 6 hours. Max acetaminophen dose: 4000mg in 24 hrs. Active Lantus Solostar U-100 Insulin 100 unit/mL (3 mL) pen Inject 20 units subcutaneous before bedtime. Product desired: LANTUS SOLOSTAR Active Lantus Solostar U-100 Insulin 100 unit/mL (3 mL) pen Inject 5 units subcutaneous once daily in the morning. Product desired: LANTUS SOLOSTAR Active miconazole nitrate powder 2 % powderIndications:gr oin rash Apply topically to affected area(s) three times daily. Active melatonin 3 mg tablet Take 3 mg by mouth at bedtime. Active sennosides (Senna) 8.6 mg tablet Take 17.2 mg by mouth at bedtime. Active albuterol-ipratropiu m (DUONEB) (2.5-0.5 mg) in 3 mL NEBULIZATION solution Inhale 1 Neb via a nebulizer 4 times daily. Active polyethylene glycol (Miralax) 17 g per packet packet Mix 1 Packet in liquid then take by mouth once daily. Active morphine CONCENTRATE (ROXANOL) 10 mg/0.5 mL oral syringeIndications:D yspnea, unspecified type Take 0.125 mL (2.5 mg) by mouth every 4 hours if needed (dyspnea/SOB). 30 mL 01/12/2024 Active pregabalin (LYRICA) 150 mg capsuleIndications:Chloe holden post below-knee amputation of left lower extremity (HC) Take 1 Capsule (150 mg) by mouth once daily. 10 Capsule 01/12/2024 Active hydrALAZINE (APRESOLINE) 10 mg tabletIndications:Ac jake on chronic heart failure with preserved ejection fraction (HFpEF) (HC) Take 4 Tablets (40 mg) by mouth three times daily. 01/12/2024 Active isosorbide dinitrate (ISORDIL) 40 mg tabletIndications:Ac jake on chronic heart failure with preserved ejection fraction (HFpEF) (HC) Take 1 Tablet (40 mg) by mouth three times daily. 01/12/2024 Active Active Problems Problem Noted Date Diagnosed Date Hypernatremia 11/24/2023 Leukopenia 11/22/2023 Urinary retention 11/20/2023 Hx of BKA, left 11/20/2023 Acute respiratory failure with hypoxia and hyper capnia 11/20/2023 Hyperkalemia 11/19/2023 Acute on chronic heart failu re with preserved ejection fraction (HFpEF) 10/10/2023 Sleep apnea 10/10/2023 Acute respiratory failure with hypoxia and hyper capnia 10/10/2023 Acute cystitis with hematuria 06/26/2023 Weakness 06/26/2023 MICHELLE (acute kidney injury) 06/26/2023 Symptomatic bradycardia 06/23/2023 TIA (transient ischemic attack) 06/22/2023 CKD (chronic kidney disease) stage 4, GFR 15-29 ml/min 06/22/2023 Insulin dependent type 2 diabetes mellitus 06/22 Arteriovenous fistula 08/12/2022 Overview: Right forearm No longer used for dialysis. Last Assessment & Plan: Lump under skin. 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 Basal cell carcinoma (BCC) 07/16/2022 Morbid obesity 06/15/2022 Hypertension 06/15/2022 Renal transplant, [...] Encounters Date Type Department Care Team Description 02/27/2024 Lab Requisition [facility] [address] [place] [address] Manoj Davalos, STRANNER, RECORDS MANAGER 02/15/2024 Lab Requisition [facility] [address] [place] [address] Victorina Gallagher MD 02/12/2024 Lab Requisition [facility] [address] [place] [address] Vcitorina Gallagher MD 02/10/2024 11:08 AM CDT - 02/10/2024 1:49 PM CDT Emergency [facility] [address] [place] [address] Stanford Yaens MD Hypokalemia (Primary Dx); Chronic kidney disease, unspecified CKD stage; Chronic atrial fibrillation (HC) Discharge Disposition: Home Self Care 02/10/2024 Travel 02/09/2024 Lab Requisition [facility] [address] [place] [address] Arlette Nath, MADALYN 02/05/2024 Lab Requisition [facility] [address] [place] [address] Arlette Nath, MADALYN 02/01/2024 Lab Requisition [facility] [address] [place] [address] Arlette Nath, MADALYN 01/25/2024 Lab Requisition [facility] [address] [place] [address] Destini mathur, Victorina Landaverde MD 01/20/2024 Lab Requisition [facility] [address] [place] [address], [place] [address] Destini mathur, Victorina Landaverde MD 01/16/2024 Lab Requisition [address] [place] [address] Destini mathur, Victorina Landaverde MD 01/06/2024 Travel 01/05/2024 3:13 PM CDT - 01/13/2024 11:23 AM CDT Hospital Encounter [facility] [address] [place] [address] [facility], [facility] Hospitalists Of Giuseppe Bennett, MD Di Mera, MD Sandra Davalos Maliha, MBBS Acute on chronic heart failure with preserved ejection fraction (HFpEF) (HC) (Primary Dx); Symptomatic bradycardia; Dyspnea, unspecified type; Status post below-knee amputation of left lower extremity (HC); Skin yeast infection [facility] 01/05/2024 9:18 AM CDT - 01/05/2024 1:59 PM [address] [place] [address] John Zaldivar MD Acute on chronic diastolic congestive heart failure (HC) (Primary Dx); MICHELLE (acute kidney injury) (HC); Hyperkalemia; Acute on chronic respiratory failure with hypoxia (HC) Discharge Disposition: Health Care Facility Not On List 01/05/2024 Travel 01/04/2024 Lab Requisition [facility] [address] [place] [address] Arlette Nath NP 01/04/2024 Lab Requisition [facility] [address] [place] [address] Arlette Nath NP 12/30/2023 Telephone [facility] [address] [place] [address] Angelina Smith RN Follow Up from Last 3 Months Immunizations Name Administration Dates Next Due COVID-19 vaccine ([employer]) SHANTI ANDREA 09/22/2021 Hepatitis B, Unspecified 02/08/2012 Influenza Virus, Unspecified 05/29/2020, 10/09/2019,06/26/2018,2016,07/12/2017,05/30/2017,08/09/2016,1 08/22/2012,06/05/2013,06/05/2013, 012,05/17/2012,05/12/2011,05/12/2011,,05/15/2010,05/15/2010,05/20/20 09 Influenza, High-dose Inactivated 10/09/2019,07/22 Influenza, High-dose Quadriv alent Inactivated 05/26/2023,07/01/2022,09/22/2021,2020 Influenza, IIV3 (Age 6-35 mos) 05/12/2011 Influenza, IIV3 (Age >=3 years) 07/12/20 17,06/05/2013,05/17/2012,2010,05/15/2010,05/20/2009 Influenza, IIV4 05/29/2020,08/12/2015,05/24/2014 Influenza, Inactivated IIV3 (Age 65+ Years) Preserv Free 06/26/2018,05/30/2017 Pneumococcal Poly,23-Valent (Pneumovax) 05/05/2011 Pneumococcal conj 13-Valent (Prevnar 13) 03/17/2016 TD, UNSPECIFIED 12/23/2018 Td (Age >=7 Years) 01/12/2019 Td, Preservative Free (age > = 7 Years) 01/12/2019,12/23/2018 Tdap 12/23/2018 Tuberculin Skin Test, Unspecified 07/30/2022, Family History Medical History Relation Name Comments Heart Disease Father Other Mother Parkinson's, Al zheimers Relation Name Status Comments Brother Alive Good health Father CHF, ASCVD Mother (Age 70) Alzheimers , Parkinsons Social History Tobacco Use Types Packs/Day Years Used Date Smoking Tobacco: Former Cigars Q uit: 08/22/2004 Passive Smoke Exposure: Past Smokeless Tobacco: Never Tobacco Cessation:Counseling Given: No Alcohol Use Standard Drinks/Week Comments No 0 (1 standard drink = 0.6 oz pur e alcohol) PHQ-2 Answer Date Recorded PHQ-2 Score 1 10/21/2018 Social Connections Answer Date Recorded Frequency of Communication with Friends and Fami ly 0 11/19/2023 Financial Resource Strain Answer Date R ecorded [...] Sign Reading Time Taken Comments Blood Pressure 185/88 02/10/2024 1:23 PM CDT Pulse 80 02/10/2024 1:23 PM CDT Temperature 36.4 ??C (97.6 ??F) 02/10/2024 11:19 AM C DT Respiratory Rate 16 02/10/2024 11:15 AM CDT Oxygen Saturation 96% 02/10/2024 1:23 PM CDT Inhaled Oxygen Concentration - - Weight 130 kg (286 lb 11.2 oz) 02/10/2024 11:14 AM CDT Height 182.9 cm (6') 02/10/2024 11:14 AM CDT Body Mass Index 38.88 02/10/2024 11:14 AM CDT Plan of Treatment Health Maintenance Due Date Last Done Comments Zoster (shingles) series for age 50+ (1 of 2) 1969 Medicare Wellness for age 65+ 2015 Pneumococcal series for age 65+ (3 of 3 - PPSV23 or PCV20) 05/12/2016 03/17/2016, 05/05/2011 Depression screening for age 12+ 06/26/2019 06/26/20 18, 03/17/2016 Colonoscopy through age 75 03/20/202003/20, 03/20/2015, 03/17/2012, Additional history exists COVID-19 vaccine series ( season) 2023 09/22/2021, 09/22/2021, 11/18/2020, Additional history exists Influenza for age 65+ 04/22/2024 05/26/2023 , 07/01/2022, 09/22/2021, Additional history exists BMI (ht and wt on same day) for age 18+ 09/29/2024 09/29/2023, 01/05/2022, 10/06/2021, Additional history exists Lipids for age 45-75 01/07/2029 01/08/2024, 06/23/2023, 09/19/2020, Additional history exists Tetanus booster 01/12/2029 01/12/2019, 12/21, 12/23/2018, Additional history exists Hepatitis C screening for ag e 18-79 Completed 07/29/2014, 12/17/2005 Tdap Completed 12/23/2018 AAA screening age 65-74 Completed 10/11/2023, 09/17 Goals Goal Patient Goal Type Associated Problems Recent Progress Patient-Stated? Author BLOOD PRESSURE - MAINTAINS BP less than 140/90 Blood Pressure No Momo Forbes MD Medical Devices Implanted Type Area Electric Motor And Generator Assembler Device Identifier Shelf Expiration Date Model / Serial / Lot Drsg Wound 4x5in Matrix Bilayer Implanted:Qty: 1 on 09/23/2020 by Araceli Amaro DPM at [facility] Right: Foot 08/21/2020 [id number] / / [id number] Description:DRSG WOUND 4X5IN MATRIX BILAYER Procedures Procedure Name Priority Date/Time Associated Diagnosis Comments HEMOGLOBIN A1C Routine 02/28/2024 6:39 AM CDT Chronic kidney disease, stage 4 (severe) (HC) Type 2 diabetes mellitus with diabetic neuropathy, unspecified (HC) Acute on chronic diastolic (congestive) heart failure (HC) VITAMIN B12 Routine 02/28/2024 6:39 AM CDT Chronic kidney disease, stage 4 (severe) (HC) Type 2 diabetes mellitus with diabetic neuropathy, unspecified (HC) Acute on chronic diastolic (congestive) heart failure (HC) METHYLMALONIC ACID BLOOD Routine 02/28/2024 6:39 AM CDT Chronic kidney disease, stage 4 (severe) (HC) Type 2 diabetes mellitus with diabetic neuropathy, unspecified (HC) Acute on chronic diastolic (congestive) heart failure (HC) FOLIC ACID Routine 02/28/2024 6:39 AM CDT Chronic kidney disease, stage 4 (severe) (HC) Type 2 diabetes mellitus with diabetic neuropathy, unspecified (HC) Acute on chronic diastolic (congestive) heart failure (HC) BASIC METABOLIC PANEL Routine 02/16/2024 7:44 AM CDT BASIC METABOLIC PANEL Routine 02/13/2024 6:18 AM CDT Acute on chronic diastolic (congestive) heart failure (HC) Hypokalemia POTASSIUM STAT 02/10/2024 12:22 PM CDT EKG 12 LEAD JOVANNI 02/10/2024 11:15 AM CDT COMP METABOLIC PANEL Routine 02/10/2024 6:44 AM CDT Acute on chronic diastolic (congestive) heart failure (HC) BASIC METABOLIC PANEL Routine 02/06/2024 6:17 AM CDT PRO-BNP Routine 02/02/2024 6:44 AM CDT Acute on chronic diastolic (congestive) heart failure (HC) COMP METABOLIC PANEL Routine 02/02/2024 6:44 AM CDT Acute on chronic diastolic (congestive) heart failure (HC) BASIC METABOLIC PANEL Routine 01/26/2024 6:26 AM CDT TSH Routine 01/26/2024 6:26 AM CDT BASIC METABOLIC PANEL Routine 01/20/2024 7:00 AM CDT Hypomagnesemia Acute on chronic diastolic (congestive) heart failure (HC) MAGNESIUM Routine 01/20/2024 7:00 AM CDT Hypomagnesemia Acute on chronic diastolic (congestive) heart failure (HC) RED CELL MORPHOLOGY Routine 01/17/2024 8 :01 AM CDT Acute on chronic diastolic (congestive) heart failure (HC) PLATELET ESTIMATE Routine 01/17/2024 8:0 1 AM CDT Acute on chronic diastolic (congestive) heart failure (HC) CBC WITH AUTO DIFFERENTIAL Routine 01/17/2024 8:01 AM CDT Acute on chronic diastolic (congestive) heart failure (HC) BASIC METABOLIC PANEL Routine 01/17/2024 8:01 AM CDT Acute on chronic diastolic (congestive) heart failure (HC) CBC WITH AUTO DIFFERENTIAL Routine 01/17/2024 8:01 AM CDT Acute on chronic diastolic (congestive) heart failure (HC) SCAN-CARDIAC STRIP 01/13/2024 8: 13 AM CDT GLUCOSE METER Timed 01/13/2024 8:05 AM CDT SCAN-CARDIAC STRIP 01/12/2024 9: 53 PM CDT GLUCOSE METER Timed 01/12/2024 9:11 PM CDT GLUCOSE METER Timed 01/12/2024 5:31 PM CDT SCAN-CARDIAC STRIP 01/12/2024 4: 07 PM CDT GLUCOSE METER Timed 01/12/2024 11:27 AM CDT APTT Timed 01/12/2024 7:55 AM CDT BASIC METABOLIC PANEL Early AM 01/12/2024 7:55 AM CDT HEMATOCRIT Early AM 01/12/2024 7:55 AM CDT HEMOGLOBIN Early AM 01/12/2024 7:55 AM CDT PLATELET COUNT Early AM 01/12/2024 7:55 AM CDT GLUCOSE METER Timed 01/12/2024 7:31 AM CDT SCAN-CARDIAC STRIP 01/12/2024 7: 16 AM CDT GLUCOSE METER Timed 01/11/2024 9:12 PM CDT SCAN-CARDIAC STRIP 01/11/2024 9: 06 PM CDT GLUCOSE METER Timed 01/11/2024 5:27 PM CDT POTASSIUM Today 01/11/2024 3:55 PM CDT SCAN-CARDIAC STRIP 01/11/2024 2: 32 PM CDT GLUCOSE METER Timed 01/11/2024 11:44 AM CDT GLUCOSE METER Timed 01/11/2024 8:00 AM CDT BASIC METABOLIC PANEL Timed 01/11/2024 7:56 AM CDT APTT Early AM 01/11/2024 7:56 AM CDT HEMATOCRIT Early AM 01/11/2024 7:56 AM CDT HEMOGLOBIN Early AM 01/11/2024 7:56 AM CDT PLATELET COUNT Early AM 01/11/2024 7:56 AM CDT SCAN-CARDIAC STRIP 01/11/2024 7: 19 AM CDT SCAN-CARDIAC STRIP 01/11/2024 3: 07 AM CDT POTASSIUM Timed 01/11/2024 1:46 AM CDT GLUCOSE METER Timed 01/10/2024 9:43 PM CDT SCAN-CARDIAC STRIP 01/10/2024 9: 19 PM CDT POTASSIUM Timed 01/10/2024 8:55 PM CDT GLUCOSE METER Timed 01/10/2024 5:05 PM CDT GLUCOSE METER Timed 01/10/2024 11:55 AM CDT SCAN-CARDIAC STRIP 01/10/2024 9: 28 AM CDT APTT Timed 01/10/2024 8:56 AM CDT HEMATOCRIT Early AM 01/10/2024 8:56 AM CDT HEMOGLOBIN Early AM 01/10/2024 8:56 AM CDT PLATELET COUNT Early AM 01/10/2024 8:56 AM CDT GLUCOSE METER Timed 01/10/2024 6:48 AM CDT SCAN-CARDIAC STRIP 01/10/2024 2: 18 AM CDT POTASSIUM Timed 01/09/2024 11:32 PM CDT APTT Timed 01/09/2024 11:32 PM CDT GLUCOSE METER Timed 01/09/2024 10:18 PM CDT GLUCOSE METER Timed 01/09/2024 5:35 PM CDT POTASSIUM Timed 01/09/2024 3:17 PM CDT APTT Timed 01/09/2024 3:17 PM CDT GLUCOSE METER Timed 01/09/2024 1:18 PM CDT GLUCOSE METER Timed 01/09/2024 8:05 AM CDT RENAL FUNCTION PANEL Early AM 01/09/2024 7:41 AM CDT MAGNESIUM Early AM 01/09/2024 7:41 AM CDT APTT Early AM 01/09/2024 7:41 AM CDT HEMATOCRIT Early AM 01/09/2024 7:41 AM CDT HEMOGLOBIN Early AM 01/09/2024 7:41 AM CDT PLATELET COUNT Early AM 01/09/2024 7:41 AM CDT SCAN-CARDIAC STRIP 01/09/2024 3: 33 AM CDT GLUCOSE METER Timed 01/08/2024 10:18 PM CDT GLUCOSE METER Timed 01/08/2024 6:06 PM CDT POTASSIUM Timed 01/08/2024 5:43 PM CDT SCAN-CARDIAC STRIP 01/08/2024 3: 18 PM CDT SCAN-CARDIAC STRIP 01/08/2024 3: 18 PM CDT GLUCOSE METER Timed 01/08/2024 12:19 PM CDT SCAN-CARDIAC STRIP 01/08/2024 10 :14 AM CDT LIPID PANEL JOVANNI 01/08/2024 10:02 AM CDT POTASSIUM Timed 01/08/2024 10:02 AM CDT GLUCOSE METER Timed 01/08/2024 8:40 AM CDT MAGNESIUM JOVANNI 01/08/2024 4:45 AM CDT RENAL FUNCTION PANEL Early AM 01/08/2024 4:45 AM CDT HEMATOCRIT Early AM 01/08/2024 4:37 AM CDT HEMOGLOBIN Early AM 01/08/2024 4:37 AM CDT PLATELET COUNT Early AM 01/08/2024 4:37 AM CDT APTT JOVANNI 01/08/2024 4:37 AM CDT SCAN-CARDIAC STRIP 01/08/2024 12 :58 AM CDT GLUCOSE METER Timed 01/07/2024 10:33 PM CDT APTT Timed 01/07/2024 8:30 PM CDT GLUCOSE METER Timed 01/07/2024 4:56 PM CDT BLOOD GAS,VENOUS Today 01/07/2024 1:33 PM CDT APTT Timed 01/07/2024 1:33 PM CDT GLUCOSE METER Timed 01/07/2024 12:43 PM CDT GLUCOSE METER Timed 01/07/2024 8:01 AM CDT PLATELET ESTIMATE Timed 01/07/2024 6:1 2 AM CDT APTT Timed 01/07/2024 6:12 AM CDT HEMATOCRIT Early AM 01/07/2024 6:12 AM CDT HEMOGLOBIN Early AM 01/07/2024 6:12 AM CDT PLATELET COUNT Early AM 01/07/2024 6:12 AM CDT BASIC METABOLIC PANEL Early AM 01/07/2024 6:12 AM CDT GLUCOSE METER Timed 01/07/2024 1:59 AM CDT SCAN-CARDIAC STRIP 01/07/2024 12 :00 AM CDT APTT Timed 01/06/2024 11:27 PM CDT GLUCOSE METER Timed 01/06/2024 10:19 PM CDT GLUCOSE METER Timed 01/06/2024 5:07 PM CDT APTT JOVANNI 01/06/2024 3:59 PM CDT PROTIME-INR JOVANNI 01/06/2024 3:59 PM CDT SCAN-CARDIAC STRIP 01/06/2024 3: 27 PM CDT GLUCOSE METER Timed 01/06/2024 12:17 PM CDT US RENAL TRANSPLANT WITH DUPLEX DOPPLER Routine 01/06/2024 12:10 PM CDT SCAN-CARDIAC STRIP 01/06/2024 8: 00 AM CDT GLUCOSE METER Timed 01/06/2024 6:44 AM CDT MAGNESIUM JOVANNI 01/06/2024 6:16 AM CDT RED CELL MORPHOLOGY Timed 01/06/2024 6 :16 AM CDT RENAL FUNCTION PANEL Early AM 01/06/2024 6:16 AM CDT CBC W PLT NO DIFF Early AM 01/06/2024 6:1 6 AM CDT SCAN-CARDIAC STRIP 01/06/2024 2: 25 AM CDT GLUCOSE METER Timed 01/05/2024 10:59 PM CDT PLATELET ESTIMATE Timed 01/05/2024 8:0 3 PM CDT RED CELL MORPHOLOGY Timed 01/05/2024 8 :03 PM CDT FRACT EXCR OF SODIUM, SERUM Today 01/05/2024 8:03 PM CDT POTASSIUM Timed 01/05/2024 8:03 PM CDT CBC W PLT NO DIFF Today 01/05/2024 8:0 3 PM CDT BASIC METABOLIC PANEL Today 01/05/2024 8:03 PM CDT URINALYSIS MICROSCOPIC Timed 6:09 PM CDT FRACT EXCR OF SODIUM, URINE Today 01/05/2024 6:09 PM CDT FRACT EXCR OF SODIUM Today 01/05/2024 6:09 PM CDT UA W/ SEDIMENT EXAM REFLEXED PER CRITERIA Today 01/05/2024 6:[address] CHEST WO Routine 01/05/2024 5:12 PM CDT GLUCOSE METER Routine 01/05/2024 1:29 PM CDT GLUCOSE METER Routine 01/05/2024 12:19 PM CDT TROPONIN T (HS) ONE TIME Timed 01/05/2024 11:45 AM CDT URINALYSIS MICROSCOPIC STAT 11:10 AM CDT UA W/ SEDIMENT EXAM REFLEXED PER CRITERIA STAT 01/05/2024 11:10 AM CDT GLUCOSE METER Routine 01/05/2024 10:58 AM CDT XR CHEST 2 VIEWS PA AND LATERAL STAT 01/05/2024 10:02 AM CDT BLOOD CULTURE STAT 01/05/2024 9:41 AM CDT RED CELL MORPHOLOGY STAT 01/05/2024 9 :36 AM CDT PLATELET ESTIMATE STAT 01/05/2024 9:3 6 AM CDT MANUAL DIFFERENTIAL STAT 01/05/2024 9 :36 AM CDT CBC WITH AUTO DIFFERENTIAL STAT 01/05/2024 9:36 AM CDT TROPONIN T (HS) ACUTE W/2HR REFLEX STAT 01/05/2024 9:36 AM CDT PROCALCITONIN STAT 01/05/2024 9:36 AM CDT PROTIME-INR STAT 01/05/2024 9:36 AM CDT COMP METABOLIC PANEL STAT 01/05/2024 9:36 AM CDT BLOOD CULTURE STAT 01/05/2024 9:36 AM CDT CBC WITH AUTO DIFFERENTIAL STAT 01/05/2024 9:36 AM CDT LACTATE VENOUS STAT 01/05/2024 9:36 AM CDT BLOOD GAS,VENOUS STAT 01/05/2024 9:36 AM CDT PRO-BNP STAT 01/05/2024 9:36 AM CDT COVID-19 MOLECULAR STAT 01/05/2024 9: 34 AM CDT CRITICAL CARE PROVIDED Routine 9:24 AM CDT EKG 12 LEAD STAT 01/05/2024 9:15 AM CDT PLATELET ESTIMATE Routine 01/05/2024 6:5 3 AM CDT RED CELL MORPHOLOGY Routine 01/05/2024 6 :53 AM CDT COMP METABOLIC PANEL Routine 01/05/2024 6:53 AM CDT PRO-BNP Routine 01/05/2024 6:53 AM CDT CBC W PLT NO DIFF Routine 01/05/2024 6:5 3 AM CDT URINALYSIS MICROSCOPIC Routine 10:45 PM CDT Benign prostatic hyperplasia with lower urinary tract symptoms URINE CULTURE Routine 01/04/2024 10:45 PM CDT Benign prostatic hyperplasia with lower urinary tract symptoms UA W/ SEDIMENT EXAM REFLEXED PER CRITERIA Routine 01/04/2024 10:45 PM CDT Benign prostatic hyperplasia with lower urinary tract symptoms CT ABDOMEN PELVIS WO STAT 10/11/2023 12:20 PM MAIL CENSOR COLONOSCOPY SCREENING Routine 03/20/2015 Tubular adenoma of colon ANTI HCV Routine 07/29/2014 8:25 AM MAIL CENSOR Aftercare following organ transplant Kidney replaced by transplant Encounter for long-term (current) use of other medications from Last 3 Months or Most Recently Relevant to Health Maintenance Results * (ABNORMAL) METHYLMALONIC ACID BLOOD (02/28/2024 6:39 AM CDT) Methylmalonic Acid 688(H) 0 - 378 nmol/L 03/07/2024 2:08 PM CDT [facility] Blood BLOOD SPECIMEN / Unknown Venipuncture / Unknown 02/28/2024 6:39 AM CDT 02/28/2024 7:19 AM CDT Narrative [facility] ([facility]) - 03/07/2024 2:08 PM CDT Test(s) [id number] Acid, Serum was developed and its performance characteristics determined by [facility]. It has not been cleared or approved by the Food and Drug Administration. Performed at: ??01 - [facility] [address], [place] ??[id number] Web Engineer: Bing Lemus MD, Phone: ??[phone] Manoj Fanny Davalos APRN RECORDS MANAGER SEND O UTS Performing Organization Address [facility] de Phone Number [facility] ([facility] [address] [place] [id number], * (ABNORMAL) HEMOGLOBIN A1C MONITORING (POCT) (02/28/2024 6:39 AM CDT) HEMOGLOBIN A1C MONITORING (POCT) 8.4(H) <=6.4 % 02/28/2024 1:58 PM CDT [facility] Blood BLOOD SPECIMEN / Unknown Venipuncture / Unknown 02/28/2024 6:39 AM CDT 02/28/2024 7:19 AM CDT [facility] 02[facility]28/2024 1:58 PM CDT ? (<=6.9%) ? Indicates good control ? (7.0% to 7.9%) ? Indicates fair control ? (>=8.0%) ? Indicates poor control ?? NOTE: ??These thresholds are guidelines and ?individual targets may vary. Falsely low levels may be seen with: Recent Transfusion, Recent Significant Blood Loss, Hemolytic Diseases, or Falsely elevated levels may be seen with: Untreated Anemias, Splenectomy ? Manoj Davalos APRN RECORDS MANAGER CHEMIS TRY Performing Organization Address City/[facility]/ZIP Co de Phone Number [facility] [address] [address], * FOLIC ACID (02/28/2024 6:39 AM CDT) FOLIC ACID 9.8 4.6 - 34.8 ng/mL 02/28/2024 12:16 PM CDT [facility] Blood BLOOD SPECIMEN / Unknown Venipuncture / Unknown 02/28/2024 6:39 AM CDT 02/28/2024 7:19 AM CDT Narrative [facility] - 02/28/2024 12:16 PM CDT Biotin supplements may cause clinically significant interference for this test assay. ??If interference is suspected, it is strongly recommended that biotin is discontinued for at least one week prior to retesting. Manoj Clarkumu NADIA CLARK CHEMIS TRY Performing Organization Address [facility] Co de Phone Number [facility] [address] [phone], [place] * VITAMIN B12 (02/28/2024 6:39 AM CDT) VITAMIN B12 992 232 - 1,245 pg/mL 02/28/2024 12:18 PM CDT [facility] Blood BLOOD SPECIMEN / Unknown Venipuncture / Unknown 02/28/2024 6:39 AM CDT 02/28/2024 7:[address] [facility] LABORATORY - 02/28/2024 12:18 PM CDT Biotin supplements may cause clinically significant interference for this test assay. ??If interference is suspected, it is strongly recommended that biotin is discontinued for at least one week prior to retesting. Manoj Fanny Dosumu STRANNER, RECORDS MANAGER CHEMIS TRY Performing Organization Address City/[facility]/ZIP Co de Phone Number [facility] [address] [place] [address], * (ABNORMAL) BASIC METABOLIC PANEL (02/16/2024 7:44 AM CDT) Only the most recent of10 resultswithin the time period is included. SODIUM 137 136 - 145 mmol/L 02/16/2024 8:41 AM [facility] POTASSIUM 3.8 3.5 - 5.1 mmol/L 02/16/2024 8:41 AM [facility] CHLORIDE 92(L) 98 - 107 mmol/L 02/16/2024 8:41 AM [facility] CO2,TOTAL 31(H) 22 - 29 mmol/L 02/16/2024 8:41 AM [facility] ANION GAP 14 5 - 18 02/16/2024 8:41 AM [facility] GLUCOSE 310(H) 70 - 99 mg/dL 02/16/2024 8:41 AM [facility] CALCIUM 9.9 8.8 - 10.2 mg/dL 02/16/2024 8:41 AM [facility] BUN 99(H) 8 - 23 mg/dL 02/16/2024 8:41 AM [facility] CREATININE 3.72(H) 0.70 - 1.20 mg/dL 02/16/2024 8:41 AM [facility] BUN/CREAT RATIO 27(H) 10 - 20 8:41 AM [facility] eGFR 16(L) >90 mL/min/1.7 3m2 02/16/2024 8:41 AM [facility] Comment:As of 2021, eG FR is calculated by the CKD-EPI creatinine equation without race adjustment. ??eGFR can be influenced by muscle mass, exercise, and diet. ??The reported eGFR is an estimation only and is only applicable if the renal function is stable. Blood BLOOD SPECIMEN / Unknown Venipuncture / Unknown 02/16/2024 7:44 AM CDT 02/16/2024 8:07 AM [facility] Victorina Dowell MD CHEMI STRY [facility] [address] [address] * (ABNORMAL) POTASSIUM (02/10/2024 12:22 PM CDT) Only the most recent of9 resultswithin the time period is included. [facility] POTASSIUM 2.9(L) 3.5 - 5.1 mmol/L 02/10/2024 12:46 PM CDT [facility] Blood BLOOD SPECIMEN / Unknown Venipuncture / Unknown 02/10/2024 12:22 PM CDT 02/10/2024 12:30 PM CDT Stanford Yanes MD CHEMISTRY [facility] [address] [phone] * EKG 12 LEAD (02/10/2024 11:15 AM CDT) Only the most recent of2 resultswithin the time period is included. [facility] Interpretation Atrial fibrillation Indeterminate axis Nonspecific ST abnormality Prolonged QT Abnormal ECG When compared with ECG of 05-JAN-2024 09:15, Current undetermined rhythm precludes rhythm comparison, needs review Questionable change in QRS axis Minimal criteria for Anterior infarct are no longer Present QT has lengthened BEYOND NOW Ventricular Rate 72 BPM BEYOND NOW Atrial Rate 122 BPM BEYOND NOW P-R Interval 286 ms BEYOND NOW QRS Duration 108 ms BEYOND NOW QT 492 ms BEYOND NOW QTc 538 ms BEYOND NOW P [place] 35 degrees BEYOND NOW R [place] -176 degrees BEYOND NOW T [place] 138 degrees BEYOND NOW 02/10/2024 11:1 5 AM CDT 02/11/2024 10:06 AM CDT Stanford Yanes MD EKG ORD BEYOND NOW [place], [place] * (ABNORMAL) COMP METABOLIC PANEL (02/10/2024 6:44 AM CDT) Only the most recent of4 resultswithin the time period is included. [facility] SODIUM 141 136 - 145 mmol/L 02/10/2024 7:59 AM CDT [facility] POTASSIUM 2.6(LL) 3.5 - 5.1 mmol/L 02/10/2024 7:59 AM [facility] CHLORIDE 91(L) 98 - 107 mmol/L 02/10/2024 7:59 AM [facility] CO2,TOTAL 35(H) 22 - 29 mmol/L 02/10/2024 7:59 AM [facility] ANION GAP 15 5 - 18 02/10/2024 7:59 AM [facility] GLUCOSE 187(H) 70 - 99 mg/dL 02/10/2024 7:59 AM [facility] CALCIUM 9.6 8.8 - 10.2 mg/dL 02/10/2024 7:59 AM [facility] BUN 85(H) 8 - 23 mg/dL 02/10/2024 7:59 AM [facility] CREATININE 3.63(H) 0.70 - 1.20 mg/dL 02/10/2024 7:59 AM [facility] BUN/CREAT RATIO 23(H) 10 - 20 7:59 AM [facility] eGFR 17(L) >90 mL/min/1.7 3m2 02/10/2024 7:59 AM [facility] Comment:As of 2021, eG FR is calculated by the CKD-EPI creatinine equation without race adjustment. ??eGFR can be influenced by muscle mass, exercise, and diet. ??The reported eGFR is an estimation only and is only applicable if the renal function is stable. ALBUMIN 3.8(L) 4.0 - 4.9 g/dL 02/10/2024 7:59 AM [facility] PROTEIN,TOTAL 7.1 6.0 - 8.0 g/dL 02/10/2024 7:59 AM [facility] BILIRUBIN,TOTAL 0.7 0.0 - 1.2 mg/dL 02/10/2024 7:59 AM [facility] ALK PHOSPHATASE 141(H) 40 - 129 IU/L 02/10/2024 7:59 AM [facility] ALT (SGPT) <5(L) 10 - 50 IU/L 02/10/2024 7:59 AM [facility] AST (SGOT) 12 10 - 50 IU/L 02/10/2024 7:59 AM CDT [facility] Blood BLOOD SPECIMEN / Unknown Venipuncture / Unknown 02/10/2024 6:44 AM CDT 02/10/2024 7:02 AM CDT Arlette Nath NP CHEMISTRY Performing Organization Address City/State/[facility] Co de Phone Number [facility] [address] [phone] * (ABNORMAL) PRO-BNP (02/02/2024 6:44 AM CDT) Only the most recent of3 resultswithin the time period is included. PRO-BNP 5,678(H) <125 pg/mL 02/02/2024 7:49 AM CDT [facility] Blood BLOOD SPECIMEN / Unknown Venipuncture / Unknown 02/02/2024 6:44 AM CDT 02/02/2024 6:53 AM CDT Narrative [facility] - 02/02/2024 7:49 AM CDT The following cut-points have been suggested for the use of proBNP for the diagnostic evaluation of heart failure (HF) in patient with acute dyspnea. Patients with eGFR >= 60 Diagnosis (rule in CHF) ? <50 Years Old ?450 pg/mL 50 - 75 Years Old ?900 pg/mL >75 Years Old ? 1800 pg/mL Exclusion (rule out CHF) Age Independent ?300 pg/mL A cutoff of 1200 pg/mL for patients with an eGFR <60 yields a diagnostic sensitivity of 89% and specificity of 72% for acute congestive heart failure. ? Arlette Nath ASSISTANT VICE PRESIDENT SEND OUTS Performing Organization Address [facility] de Phone Number [address] [phone] * TSH (01/26/2024 6:26 AM CDT) TSH 3.69 0.27 - 4.20 uIU/mL 01/26/2024 7:05 AM CDT [facility] Blood BLOOD SPECIMEN / Unknown Venipuncture / Unknown 01/26/2024 6:26 AM CDT 01/26/2024 6:33 AM CDT [facility] 01/26/2024 7:05 AM CDT In Adults, TSH values between 5.00 and 10.00 uIU/ml do not necessarily indicate the presence of Hypothyroidism. Correlation with clinical findings such as presence of goiter and/or Thyroperoxidase (TPO) Antibody may be helpful. For more information please refer to SHARAD 2004; 291: 228-238. Victorina FULLER Performing Organization Address [facility] de Phone Number [address] [phone] * MAGNESIUM (01/20/2024 7:00 AM CDT) Only the most recent of4 resultswithin the time period is included. MAGNESIUM 2.3 1.6 - 2.4 mg/dL 01/20/2024 7:30 AM CDT [facility] Blood BLOOD SPECIMEN / Unknown Venipuncture / Unknown 01/20/2024 7:00 AM CDT 01/20/2024 7:05 AM CDT Victorina FULLER [facility] [address] [phone] * (ABNORMAL) CBC WITH AUTO DIFFERENTIAL (01/17/2024 8:01 AM [facility]) Only the most recent of2 resultswithin the time period is included. WHITE BLOOD COUNT 3.1(L) 4.5 - 11.0 thou/cu mm 01/17/2024 8:34 AM [facility] RED BLOOD COUNT 3.59(L) 4.30 - 5.90 mil/cu mm 01/17/2024 8:34 AM [facility] HEMOGLOBIN 8.8(L) 13.5 - 17.5 g/dL 01/17/2024 8:34 AM [facility] HEMATOCRIT 29.6(L) 37.0 - 53.0 % 01/17/2024 8:34 AM [facility] MCV 83 80 - 100 fL 01/17/2024 8:34 AM [facility] MCH 24.5(L) 26.0 - 34.0 pg 01/17/2024 8:34 AM [facility] MCHC 29.7(L) 32.0 - 36.0 g/dL 01/17/2024 8:34 AM [facility] RDW 20.3(H) 11.5 - 15.5 % 01/17/2024 8:34 AM [facility] PLATELET COUNT 94(L) 140 - 440 thou/cu mm 01/17/2024 8:34 AM [facility] MPV 01/17/2024 8:34 AM [facility] Comment:Unable to be determi alisha % NEUT 56.6 % 01/17/2024 8:34 AM [facility] % LYMPH 20.6 % 01/17/2024 8:34 AM [facility] % MONO 13.8 % 01/17/2024 8:34 AM [facility] % EOS 8.7 % 01/17/2024 8:34 AM [facility] % BASO 0.3 % 01/17/2024 8:34 AM [facility] ABSOLUTE NEUTROPHILS 1.8 1.7 - 7.0 thou/cu mm 01/17/2024 8:34 AM [facility] ABSOLUTE LYMPHOCYTES 0.6(L) 0.9 - 2.9 thou/cu mm 01/17/2024 8:34 AM [facility] ABSOLUTE MONOCYTES 0.4 <0.9 thou/cu mm 01/17/2024 8:34 AM [facility] ABSOLUTE EOSINOPHILS 0.3 <0.5 thou/cu mm 01/17/2024 8:34 AM [facility] ABSOLUTE BASOPHILS 0.0 <0.3 thou/cu mm 01/17/2024 8:34 AM [facility] Blood BLOOD SPECIMEN / Unknown Venipuncture / Unknown 01/17/2024 8:01 AM CDT 01/17/2024 8:01 AM CDT Victorina Dowell MD HEMAT OLOGY Performing Organization Address City/[facility]/ZIP Co de Phone Number [facility] [address] [place] [phone] * (ABNORMAL) RED CELL MORPHOLOGY (01/17/2024 8:01 AM CDT) Only the most recent of5 resultswithin the time period is included. Pathologist Jennifer Medina 01/17/2024 8:34 AM [facility] RBC COMMENT Present(A ) RBC morphology appears normal, RBC morphology within normal limits for newborns. 01/17/2024 8:34 AM [facility] Blood BLOOD SPECIMEN / Unknown Venipuncture / Unknown 01/17/2024 8:01 AM CDT 01/17/2024 8:01 AM CDT Victorina Dowell MD HEMAT OLOGY Performing Organization Address City/[facility]/ZIP Co de Phone Number [facility] [address] [place] [phone] * (ABNORMAL) PLATELET ESTIMATE (01/17/2024 8:01 AM CDT) Only the most recent of5 resultswithin the time period is included. PLATELET ESTIMATE Decreased (A) Adequate, No estimate 01/17/2024 8:34 AM CDT [facility] Blood BLOOD SPECIMEN / Unknown Venipuncture / Unknown 01/17/2024 8:01 AM CDT 01/17/2024 8:01 AM CDT Victorina Dowell MD HEMAT OLOGY [facility] [address] [place] [phone] * SCAN-CARDIAC STRIP (01/13/2024 8:13 AM CDT) Scanner OTHER * (ABNORMAL) GLUCOSE METER (01/13/2024 8:05 AM CDT) Only the most recent of34 resultswithin the time period is included. GLUCOSE METER 117(H) 65 - 100 mg/dL 01/13/2024 8:07 AM CDT [facility] Blood BLOOD SPECIMEN / Unknown 01/13/2024 8:05 AM CDT 01/13/2024 8:07 AM CDT Mir[facility] HER[facility] [address] [place] [address], * SCAN-CARDIAC STRIP (01/12/2024 9:53 PM CDT) Scanner OTHER * SCAN-CARDIAC STRIP (01/12/2024 4:07 PM CDT) Scanner OTHER * (ABNORMAL) PLATELET COUNT (01/12/2024 7:55 AM CDT) Only the most recent of6 resultswithin the time period is included. PLATELET COUNT 67(L) 140 - 440 thou/cu mm 01/12/2024 8:55 AM CDT [facility] MPV 01/12/2024 8:55 AM CDT [facility] Comment:Unable to be determi alisha Blood BLOOD SPECIMEN / Unknown Non-Lab Venipuncture / Unknown 01/12/2024 7:55 AM CDT 01/12/2024 8:26 AM CDT [facility] - 01/12/2024 8:55 AM CDT Every morning while on IV heparin. Every morning while on IV heparin. Necessary every morning while on IV heparin. Angie Olson NP HEMATOLOGY Performing Organization Address [facility] de Phone Number [facility] [address] [place] [phone], [place] * (ABNORMAL) HEMOGLOBIN (01/12/2024 7:55 AM CDT) Only the most recent of6 resultswithin the time period is included. HEMOGLOBIN 9.6(L) 13.5 - 17.5 g/dL 01/12/2024 8:54 AM CDT [facility] MCV 81 80 - 100 fL 01/12/2024 8:54 AM CDT [facility] Blood BLOOD SPECIMEN / Unknown Non-Lab Venipuncture / Unknown 01/12/2024 7:55 AM CDT 01/12/2024 8:[address] [facility] LABORATORY - 01/12/2024 8:54 AM CDT Every morning while on IV heparin. Every morning while on IV heparin. Necessary every morning while on IV heparin. Angie Olson NP HEMATOLOGY Performing Organization Address [facility] Co de Phone Number [facility] [address] [place] [phone], [place] * (ABNORMAL) HEMATOCRIT (01/12/2024 7:55 AM CDT) Only the most recent of6 resultswithin the time period is included. HEMATOCRIT 32.2(L) 37.0 - 53.0 % 01/12/2024 8:54 AM CDT [facility] Blood BLOOD SPECIMEN / Unknown Non-Lab Venipuncture / Unknown 01/12/2024 7:55 AM CDT 01/12/2024 8:26 AM CDT Narrative [facility] - 01/12/2024 8:54 AM CDT Every morning while on IV heparin. Every morning while on IV heparin. Necessary every morning while on IV heparin. Angie Olson NP HEMATOLOGY Performing Organization Address City/[facility]/ZIP Co de Phone Number [facility] [address] [place] [address], * (ABNORMAL) APTT (01/12/2024 7:55 AM CDT) Only the most recent of12 resultswithin the time period is included. APTT 60(H) 28 - 36 sec 01/12/2024 8:49 AM CDT [facility] Blood BLOOD SPECIMEN / Unknown Non-Lab Venipuncture / Unknown 01/12/2024 7:55 AM CDT 01/12/2024 8:26 AM CDT Narrative [facility] - 01/12/2024 8:49 AM CDT Therapeutic Range: 57-87 seconds Mirta HERNANDEZ HEMATOLOGY [facility] [address] [place] [address], * SCAN-CARDIAC STRIP (01/12/2024 7:16 AM CDT) Scanner OTHER * SCAN-CARDIAC STRIP (01/11/2024 9:06 PM CDT) Scanner OTHER * SCAN-CARDIAC STRIP (01/11/2024 2:32 PM CDT) Scanner OTHER * SCAN-CARDIAC STRIP (01/11/2024 7:19 AM CDT) Scanner OTHER * SCAN-CARDIAC STRIP (01/11/2024 3:07 AM CDT) Scanner OTHER * SCAN-CARDIAC STRIP (01/10/2024 9:19 PM CDT) Scanner OTHER * SCAN-CARDIAC STRIP (01/10/2024 9:28 AM CDT) Scanner OTHER * SCAN-CARDIAC STRIP (01/10/2024 2:18 AM CDT) Scanner OTHER * (ABNORMAL) RENAL FUNCTION PANEL (01/09/2024 7:41 AM CDT) Only the most recent of3 resultswithin the time period is included. SODIUM 141 136 - 145 mmol/L 01/09/2024 8:21 AM CDT [facility] POTASSIUM 3.5 3.5 - 5.1 mmol/L 01/09/2024 8:21 AM CDT [facility] CHLORIDE 96(L) 98 - 107 mmol/L 01/09/2024 8:21 AM CDT [facility] CO2,TOTAL 34(H) 22 - 29 mmol/L 01/09/2024 8:21 AM CDT [facility] ANION GAP 11 5 - 18 01/09/2024 8:21 AM CDT [facility] GLUCOSE 204(H) 70 - 99 mg/dL 01/09/2024 8:21 AM CDT [facility] CALCIUM 9.4 8.8 - 10.2 mg/dL 01/09/2024 8:21 AM CDT [facility] BUN 62(H) 8 - 23 mg/dL 01/09/2024 8:21 AM CDT [facility] CREATININE 3.20(H) 0.70 - 1.20 mg/dL 01/09/2024 8:21 AM CDT [facility] BUN/CREAT RATIO 19 10 - 20 8:21 AM CDT [facility] eGFR 20(L) >90 mL/min/1.7 3m2 01/09/2024 8:21 AM CDT [facility] Comment:As of 2021, eG FR is calculated by the CKD-EPI creatinine equation without race adjustment. ??eGFR can be influenced by muscle mass, exercise, and diet. ??The reported eGFR is an estimation only and is only applicable if the renal function is stable. PHOSPHORUS 4.2 2.5 - 4.5 mg/dL 01/09/2024 8:21 AM CDT [facility] ALBUMIN 3.6(L) 4.0 - 4.9 g/dL 01/09/2024 8:21 AM CDT [facility] Blood BLOOD SPECIMEN / Unknown Butterfly / Unknown 01/09/2024 7:41 AM CDT 01/09/2024 7:48 AM CDT Guille Wilkinson MD CHEMISTRY [facility] [address] [place] [address], * SCAN-CARDIAC STRIP (01/09/2024 3:33 AM CDT) Scanner OTHER * SCAN-CARDIAC STRIP (01/08/2024 3:18 PM CDT) Scanner OTHER * SCAN-CARDIAC STRIP (01/08/2024 3:18 PM CDT) Scanner OTHER * SCAN-CARDIAC STRIP (01/08/2024 10:14 AM CDT) Scanner OTHER * (ABNORMAL) LIPID PANEL (01/08/2024 10:02 AM CDT) CHOLESTEROL,TOTAL 79(L) 100 - 199 mg/dL 01/08/2024 11:04 AM CDT [facility] Comment: Cholesterol, Total Reference Ranges Desirable <200 mg/dL Borderline 200-239 mg/dL High >=240 mg/dL TRIGLYCERIDES 68 <150 mg/dL 01/08/2024 11:04 AM CDT [facility] HDL CHOLESTEROL 44 >40 mg/dL 11:04 AM CDT [facility] NON-HDL CHOLESTEROL 35 <145 mg/dl 01/08/2024 11:04 AM CDT [facility] CHOL/HDL RATIO 1.80 <4.50 01/08/2024 11:04 AM CDT [facility] LDL CHOLESTEROL 21 <=130 mg/dL 01/08/2024 11:04 AM CDT [facility] VLDL CHOLESTEROL 14 <=30 mg/dL 01/08/20 24 11:04 AM CDT [facility] Blood BLOOD SPECIMEN / Unknown Non-Lab Venipuncture / Unknown 01/08/2024 10:02 AM CDT 01/08/2024 10:34 AM CDT Angie Olson NP CHEMISTRY [facility] [address] [place] [address], * SCAN-CARDIAC STRIP (01/08/2024 12:58 AM CDT) Scanner OTHER * (ABNORMAL) BLOOD GAS,VENOUS (01/07/2024 1:33 PM CDT) Only the most recent of2 resultswithin the time period is included. PH, VENOUS 7.34 7.32 - 7.43 01/07/2024 1:49 PM CDT [facility] PCO2, VENOUS 63(H) 41 - 51 mmHg 01/07/2024 1:49 PM CDT [facility] PO2, VENOUS 62(H) 35 - 40 mmHg 01/07/2024 1:49 PM CDT [facility] HCO3,VENOUS 34(H) 22 - 29 mmol/L 01/07/2024 1:49 PM CDT [facility] BASE EXCESS, VENOUS, POCT 6.1(H) -2.0 - 3.0 01/07/2024 1:49 PM CDT [facility] O2 SATURATION, VENOUS 92(H) 70 - 75 % 01/07/2024 1:49 PM CDT [facility] PATIENT TEMPERATURE 37.0 Degrees C 01/07/2024 1:49 PM CDT [facility] Blood VENOUS BLOOD SPECIMEN / Unknown Butterfly / Unknown 01/07/2024 1:33 PM CDT 01/07/2024 1:44 PM CDT Mirta HERNANDEZ CHEMISTRY [facility] [address] [place] [address], * SCAN-CARDIAC STRIP (01/07/2024 12:00 AM CDT) Scanner OTHER * (ABNORMAL) PROTIME-INR (01/06/2024 3:59 PM CDT) Only the most recent of2 resultswithin the time period is included. INR 1.5(H) <1.3 01/06/2024 4:35 PM CDT [facility] PROTIME 16.4(H) 10.3 - 12.3 sec 01/06/2024 4:35 PM CDT [facility] Blood BLOOD SPECIMEN / Unknown Venipuncture / Unknown 01/06/2024 3:59 PM CDT 01/06/2024 4:18 PM CDT Narrative [facility] - 01/06/2024 4:35 PM CDT ?Therapeutic Range 2.0-3.0 for most anticoagulated [...] seconds if the patient is on UFH. Angie Olson NP HEMATOLOGY [facility] [address] [place] [address], * SCAN-CARDIAC STRIP (01/06/2024 3:27 PM CDT) Scanner OTHER * US RENAL TRANSPLANT W DUPLEX DOPPLER (01/06/2024 12:10 PM CDT) Anatomical Region Laterality Modality KIDNEYS, KIDNEY L, KIDNEY R Ultr asound 01/07/2024 9:17 AM CDT Impressions 01/07/2024 9:17 AM CDT 1. 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 Resistive indices only borderline elevated. 2. Patent transplant artery and vein. Renal transplant: - ? RI < 0.7 (nl) (of intraparenchymal arteries) - ? RI 0.7 ? 0.8: borderline elevated - ? RI < 0.8: Abnormal. - ? MRA <200cm/sec is abnormal and suggestive of stenosis but may be post-op edema Dictated by Campos Ji MD @ 01/07/2024 9:05:21 AM (Electronically Signed) Narrative 01/07/2024 9:17 AM CDT For Patients: ??As a result of the Century Cures Act, medical imaging exams and procedure reports are released immediately into your electronic medical record. ??You may view this report before your referring provider. ??If you have questions, please contact your health care provider. HISTORY: Renal failure status post transplant TECHNIQUE: Grayscale ultrasound of the transplanted kidney with 2D and spectral analysis and color Doppler Imaging of the renal vessels. COMPARISON: None available. FINDINGS: Suboptimal evaluation due to large body habitus. The transplanted kidney is visualized in the right lower quadrant and measures 12.1 x 5.6 x 5.8 cm. Small amount of free fluid surrounding the kidney. Mild pelvicaliectasis. Moderate amount of hypoechogenicity surrounding the central kidney and infundibula. The iliac artery and vein are patent proximal and distal to the anastomosis. The anastomosis is patent with a peak systolic velocity of 109 cm/s. The peak systolic velocity in the mid and distal/hilar renal artery transplant was recorded at 70 and 68 cm/sec without and tardus appearance to the upstroke. The resistive indices within the sampled arcuate arteries were obtained at could not be obtained in the upper portion as it could not be well visualized. It was recorded at 0.7 and 0.73 within the mid and lower arcuate arteries without flow reversal seen there. The main renal vein and superimposed intrarenal veins are patent. The urinary bladder is decompressed with a bose catheter in place. Procedure Note Campos Ji MD - 01/07/2024 For Patients: As a result of the Century Cures Act, medical imagingexams and procedure reports are released immediately into your electronicmedical record. You may view this report before your referring provider.If you have questions, please contact your health care provider. HISTORY: Renal failure status post transplant TECHNIQUE: Grayscale ultrasound of the transplanted kidney with 2D and spectralanalysis and color Doppler Imaging of the renal vessels. COMPARISON: None available. FINDINGS: Suboptimal evaluation due to large body habitus. The transplanted kidneyis visualized in the right lower quadrant and measures 12.1 x 5.6 x 5.8cm. Small amount of free fluid surrounding the kidney. Mildpelvicaliectasis. Moderate amount of hypoechogenicity surrounding thecentral kidney and infundibula. The iliac artery and vein are patent proximal and distal to theanastomosis. The anastomosis is patent with a peak systolic velocity of109 cm/s. The peak systolic velocity in the mid and distal/hilar renalartery transplant was recorded at 70 and 68 cm/sec without and tardusappearance to the upstroke. The resistive indices within the sampled arcuate arteries were obtained atcould not be obtained in the upper portion as it could not be wellvisualized. It was recorded at 0.7 and 0.73 within the mid and lowerarcuate arteries without flow reversal seen there. The main renal vein and superimposed intrarenal veins are patent. The urinary bladder is decompressed with a bose catheter in place. IMPRESSION: 1. 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 Resistive indices only borderline elevated. 2. Patent transplant artery and vein. Renal transplant: - RI < 0.7 (nl) (of intraparenchymal arteries) - RI 0.7 ? 0.8: borderline elevated - RI < 0.8: Abnormal. - MRA <200cm/sec is abnormal and suggestive of stenosis but may bepost-op edema Dictated by Campos Ji MD @ 01/07/2024 9:05:21 AM (Electronically Signed) Diego Brown MD US * SCAN-CARDIAC STRIP (01/06/2024 8:00 AM CDT) Scanner OTHER * (ABNORMAL) CBC no diff AM (01/06/2024 6:16 AM CDT) Only the most recent of3 resultswithin the time period is included. WHITE BLOOD COUNT 4.2(L) 4.5 - 11.0 thou/cu mm 01/06/2024 7:30 AM CDT [facility] RED BLOOD COUNT 3.54(L) 4.30 - 5.90 mil/cu mm 01/06/2024 7:30 AM CDT [facility] HEMOGLOBIN 8.7(L) 13.5 - 17.5 g/dL 01/06/2024 7:30 AM CDT [facility] HEMATOCRIT 29.8(L) 37.0 - 53.0 % 01/06/2024 7:30 AM CDT [facility] MCV 84 80 - 100 fL 01/06/2024 7:30 AM T [facility] MCH 24.6(L) 26.0 - 34.0 pg 01/06/2024 7:30 AM CDT [facility] MCHC 29.2(L) 32.0 - 36.0 g/dL 01/06/2024 7:30 AM CDT [facility] RDW 19.9(H) 11.5 - 15.5 % 01/06/2024 7:30 AM CDT [facility] PLATELET COUNT 65(L) 140 - 440 thou/cu mm 01/06/2024 7:30 AM CDT [facility] MPV 01/06/2024 7:30 AM CDT [facility] Comment:Unable to be determi alisha NRBC 0.0 % 01/06/2024 7:30 AM CDT [facility] ABS NRBC 0.0 thou /cu mm 01/06/2024 7:30 AM CDT [facility] Blood BLOOD SPECIMEN / Unknown Venipuncture / Unknown 01/06/2024 6:16 AM CDT 01/06/2024 6:35 AM CDT Nadiya Bullard MD HEMATOLO GY [facility] [address] [place] [address], * SCAN-CARDIAC STRIP (01/06/2024 2:25 AM CDT) Scanner OTHER * (ABNORMAL) FRACT EXCR OF SODIUM, SERUM (01/05/2024 8:03 PM CDT) SODIUM 140 136 - 145 mmol/L 01/05/2024 9:00 PM CDT [facility] CREATININE 3.33(H) 0.70 - 1.20 mg/dL 01/05/2024 9:00 PM CDT [facility] eGFR 19(L) >90 mL/min/1.7 3m2 01/05/2024 9:00 PM CDT [facility] Comment:As of 2021, eG FR is calculated by the CKD-EPI creatinine equation without race adjustment. ??eGFR can be influenced by muscle mass, exercise, and diet. ??The reported eGFR is an estimation only and is only applicable if the renal function is stable. Blood BLOOD SPECIMEN / Unknown Venipuncture / Unknown 01/05/2024 8:03 PM CDT 01/05/2024 8:15 PM CDT Diego Brown MD CHEMISTRY Performing Organization Address [facility] Co de Phone Number [facility] [address] [place] [id number], [place] * (ABNORMAL) FRACT EXCR OF SODIUM, URINE (01/05/2024 6:09 PM CDT) SODIUM,RAW URINE 106 mmol/L 01/06/2024 5:17 AM CDT [facility] SODIUM 140 136 - 145 mmol/L 01/06/2024 5:17 AM CDT [facility] CREATININE RAW URINE 25 mg/dL 01/06/2024 5:17 AM CDT [facility] CREATININE 3.33(H) 0.70 - 1.20 mg/dL 01/06/2024 5:17 AM CDT [facility] FRACT EX OF SODIUM 10.1 % 01/06/2024 5:17 AM CDT [facility] Urine URINE SPECIMEN / Unknown Non-Blood / Unknown 01/05/2024 6:09 PM CDT 01/05/2024 6:23 PM CDT Narrative [facility] - 01/06/2024 5:17 AM CDT Suggests Vasomotor Nephropathy Diego Brown MD URINE Performing Organization Address [facility] Co de Phone Number [facility] [address] [place] [address], [place] * (ABNORMAL) URINALYSIS MICROSCOPIC (01/05/2024 6:09 PM CDT) Only the most recent of3 resultswithin the time period is included. RBC 11-25(A) 0-2, None Seen /HPF 01/05/2024 6:49 PM CDT [facility] WBC 51-100(A) 0-2, 3-5, None Seen /HPF 01/05/2024 6:49 PM CDT [facility] BACTERIA None Seen None Seen, Rare, Few Bacteria/ HPF 01/05/2024 6:49 PM CDT [facility] EPITHELIAL CELLS None Seen None Seen, Few Epi/HPF 01/05/2024 6:49 PM CDT [facility] HYALINE CASTS 3-5 0-2, 3-5 /LPF 01/05/2024 6:49 PM CDT [facility] Urine URINE SPECIMEN / Unknown Non-Blood / Unknown 01/05/2024 6:09 PM CDT 01/05/2024 6:23 PM CDT Diego Brown MD URINE [facility] [address] [place] [address], * (ABNORMAL) ROUTINE URINALYSIS (01/05/2024 6:09 PM CDT) Only the most recent of3 resultswithin the time period is included. COLOR Yellow Yellow Color 01/05/2024 6:49 PM CDT [facility] CLARITY Clear Clear Clarity 01/05/2024 6:49 PM CDT [facility] SPECIFIC GRAVITY,URINE 1.010 1.010, 1.015, 1.020, 1.025 01/05/2024 6:49 PM CDT [facility] PH,URINE 5.5 6.0, 7.0, 8.0, 5.5, 6.5, 7.5, 8.5 01/05/2024 6:49 PM CDT [facility] UROBILINOGEN, QUALITATIVE Normal Normal EU/dl 01/05/2024 6:49 PM CDT [facility] PROTEIN, URINE 30(A) Negative mg/dL 01/05/2024 6:49 PM CDT [facility] GLUCOSE, URINE Negative Negative mg/dL 01/05/2024 6:49 PM CDT [facility] KETONES,URINE Negative Negative mg/dL 01/05/2024 6:49 PM CDT [facility] BILIRUBIN,URI NE Negative Negative 01/05/2024 6:49 PM CDT [facility] OCCULT BLOOD,URINE Small(A) Negative 01/05/2024 6:49 PM CDT [facility] NITRITE Negative Negative 01/05/2024 6:49 PM CDT [facility] LEUKOCYTE ESTERASE Large(A) Negative 01/05/2024 6:49 PM CDT [facility] Urine URINE SPECIMEN / Unknown Non-Blood / Unknown 01/05/2024 6:09 PM CDT 01/05/2024 6:23 PM CDT Diego Brown MD URINE [facility] [address] [place] [address], * CT CHEST WO (01/05/2024 5:12 PM CDT) Anatomical Region Laterality Modality CHEST, THORAX, HEART Computed To mography 01/06/2024 7:40 AM CDT Impressions 01/06/2024 7:40 AM CDT 1. Unchanged enlargement of the heart. Atherosclerotic vascular and valvular calcifications. A few prominent mediastinal lymph nodes are noted unchanged likely reactive. 2. Multifocal ground-glass and thickening of the interlobular septa probably largely related to pulmonary edema. This appearance has generally improved compared to the prior 2 CTs. 3. There are focal more confluent ground-glass opacities which may be inflammatory. Basilar opacities are probably atelectasis though early consolidation is possible. 4. Small effusions. 5. Cholelithiasis. Please note that all CT scans at this facility use dose modulation, iterative reconstruction, and/or weight-based dosing when appropriate to reduce radiation dose to as low as reasonably achievable. Dictated by Shiva Ordaz MD @ 01/06/2024 7:40:56 AM (Electronically Signed) Narrative 01/06/2024 7:40 AM CDT For Patients: ??As a result of the Cures Act, medical imaging exams and procedure reports are released immediately into your electronic medical record. ??You may view this report before your referring provider. ??If you have questions, please contact your health care provider. INDICATION: Chronic dyspnea of uncertain etiology. COMPARISON: Portions of an November 30, 2023 study and portions of an November 26, 2023 study. TECHNIQUE: : CT examination of the chest was performed without contrast. Thin axial sections were obtained from above the apices of the lungs to the lung bases. Please note that all CT scans at this facility use dose modulation, iterative reconstruction, and/or weight-based dosing when appropriate to reduce radiation dose to as low as reasonably achievable. FINDINGS: : HEART and MEDIASTINUM: The heart is enlarged but similar in appearance to the prior study. There are atherosclerotic vascular and valvular calcifications. A few prominent mediastinal lymph nodes are noted likely reactive. Similar to the prior study. LUNGS: Patchy multifocal ground-glass bilaterally and roughly symmetrically. There are also areas of atelectasis and possibly mild consolidation at the bases. There is also thickening of the interlobular septa. While ground-glass is nonspecific, the prominent interlobular septa suggest that this is probably primarily due to pulmonary edema. Some of the more focal opacities are probably inflammatory. Of note, the patient had a similar appearance on the prior 2 studies though the appearance has progressively improved but still remains significantly abnormal. PLEURAL SPACES: Small effusion VISUALIZED UPPER ABDOMEN: Cholelithiasis. Otherwise, the limited visualized upper abdominal structures appear normal. OSSEOUS STRUCTURES: DISH of the dorsal spine TUBES and LINES: None. Procedure Note Shiva Ordaz MD - 01/06/2024 For Patients: As a result of the Cures Act, medical imagingexams and procedure reports are released immediately into your electronicmedical record. You may view this report before your referring provider.If you have questions, please contact your health care provider. INDICATION: Chronic dyspnea of uncertain etiology. COMPARISON: Portions of an November 30, 2023 study and portions of an November 26, 2023study. TECHNIQUE: : CT examination of the chest was performed without contrast. Thin axialsections were obtained from above the apices of the lungs to the lungbases. Please note that all CT scans at this facility use dose modulation,iterative reconstruction, and/or weight-based dosing when appropriate toreduce radiation dose to as low as reasonably achievable. FINDINGS: : HEART and MEDIASTINUM: The heart is enlarged but similar in appearance tothe prior study. There are atherosclerotic vascular and valvularcalcifications. A few prominent mediastinal lymph nodes are noted likelyreactive. Similar to the prior study. LUNGS: Patchy multifocal ground-glass bilaterally and roughlysymmetrically. There are also areas of atelectasis and possibly mildconsolidation at the bases. There is also thickening of the interlobularsepta. While ground-glass is nonspecific, the prominent interlobular septasuggest that this is probably primarily due to pulmonary edema. Some ofthe more focal opacities are probably inflammatory. Of note, the patienthad a similar appearance on the prior 2 studies though the appearance hasprogressively improved but still remains significantly abnormal. PLEURAL SPACES: Small effusion VISUALIZED UPPER ABDOMEN: Cholelithiasis. Otherwise, the limitedvisualized upper abdominal structures appear normal. OSSEOUS STRUCTURES: DISH of the dorsal spine TUBES and LINES: None. IMPRESSION: 1. Unchanged enlargement of the heart. Atherosclerotic vascular andvalvular calcifications. A few prominent mediastinal lymph nodes are notedunchanged likely reactive. 2. Multifocal ground-glass and thickening of the interlobular septaprobably largely related to pulmonary edema. This appearance has generallyimproved compared to the prior 2 CTs. 3. There are focal more confluent ground-glass opacities which may beinflammatory. Basilar opacities are probably atelectasis though earlyconsolidation is possible. 4. Small effusions. 5. Cholelithiasis. Please note that all CT scans at this facility use dose modulation,iterative reconstruction, and/or weight-based dosing when appropriate toreduce radiation dose to as low as reasonably achievable. Dictated by Shiva Ordaz MD @ 01/06/2024 7:40:56 AM (Electronically Signed) Nadiya Bullard MD CT * (ABNORMAL) TROPONIN T (HS) ONE TIME (01/05/2024 11:45 AM CDT) TROPONIN T HS 46(H) 6-15 ng/L ng/L 01/05/2024 12:50 PM CDT [facility] Blood BLOOD SPECIMEN / Unknown Venipuncture / Unknown 01/05/2024 11:45 AM CDT 01/05/2024 12:34 PM CDT John Zaldivar MD CHEMISTRY Performing Organization Address [facility] Co de Phone Number [address] [phone] * XR CHEST 2 VIEWS PA AND LATERAL (01/05/2024 10:02 AM CDT) Anatomical Region Laterality Modality CHEST, THORAX, Lung, HEART Digit al Radiography John Zaldivar MD GENERAL IMAGING * BLOOD CULTURE X2 (01/05/2024 9:41 AM CDT) Only the most recent of2 resultswithin the time period is included. Pathologist [facility] [place] CULTURE No Growth. 01/11/2024 4:35 AM CDT [facility] Blood BLOOD SPECIMEN / Unknown Butterfly / Unknown 01/05/2024 9:41 AM CDT 01/05/2024 9:44 AM CDT John Zaldivar MD MICROBIOLOGY Performing Organization Address [facility] Co de Phone Number [address] [phone] * (ABNORMAL) TROPONIN T (HS) ACUTE W/2HR REFLEX (01/05/2024 9:36 AM CDT) TROPONIN T HS 48(H) 6-15 ng/L ng/L 01/05/2024 10:15 AM CDT [facility] Blood BLOOD SPECIMEN / Unknown Butterfly / Unknown 01/05/2024 9:36 AM CDT 01/05/2024 9:44 AM CDT Narrative [facility] - 01/05/2024 10:15 AM CDT hs-cTnT (Elecsys Troponin T Gen 5) concentration [...] low risk in emergency department patient population. John Zaldivar MD CHEMISTRY [facility] [address] [phone] * LACTATE VENOUS (01/05/2024 9:36 AM CDT) [facility] LACTATE,VENOUS 1.1 0.5 - 2.0 mmol/L 01/05/2024 10:05 AM CDT [facility] Blood BLOOD SPECIMEN / Unknown Butterfly / Unknown 01/05/2024 9:36 AM CDT 01/05/2024 9:44 AM CDT John Zaldivar MD CHEMISTRY Performing Organization Address City/State/[facility] Co de Phone Number [facility] [address] [phone] * PROCALCITONIN (01/05/2024 9:36 AM CDT) PROCALCITONIN 0.14 ng/ml 01/05/2024 10:20 AM CDT [facility] Blood BLOOD SPECIMEN / Unknown Butterfly / Unknown 01/05/2024 9:36 AM CDT 01/05/2024 9:44 AM CDT Narrative [facility] - 01/05/2024 10:20 AM CDT Procalcitonin for initial assessment of Lower Respiratory Tract Infection: Results Interpretation <0.10 ng/mL Antibiotic therapy strongly discoraged. ??Indicates absent of bacterial infection. * 0.10 - 0.25 ng/mL Antibiotic therapy discouraged. ??Bacterial infection unlikely. * 0.26 - 0.50 ng/mL Antibiotic therapy encouraged. ??Bacterial infection possible. >0.50 ng/mL Antibiotic therapy strongly encouraged. ??Suggestive of presence of bacterial infection. *Antibiotic therapy should be considered regardless of PCT result if the patient is clinically unstable, is at high risk for adverse outcome, has strong evidence of bacterial pathogen, or the clinical context indicates antibiotic therapy is warranted. ??If antibiotics are withheld, reassess if symptoms persist/worsen and/or repeat PCT measurement within 6-24 hours. ? In order to assess treatment success and to support a decision to discontinue antibiotic therapy, follow up samples should be tested once every 1-2 days, based upon physician discretion taking into account patient's evolution and progress. Procalcitonin for initial assessment of severe sepsis risk: Results Interpretation <0.5 ng/ml A PCT level below 0.5 ng/ml on the first day of ICU admission is associated with a low risk for progression to severe sepsis and/or septic shock. > 2.0 ng/mL A PCT level above 2.0 ng/mL on the first day of ICU admission is associated with a high risk for progression to severe sepsis and/or septic shock. Note: Concentrations < 0.5 ng/mL do not exclude an infection, on account of localized infections (without systemic signs) which can be associated with such low concentrations, or a systemic infection in its initial stages(< 6 hours). Furthermore, increased procalcitonin can occur without infection. PCT concentrations between 0.5 and 2.0 ng/mL should be interpreted taking into account the patient's history. It is recommended to retest PCT within 6-24 hours if any concentrations < 2 ng/mL are obtained. John Zaldivar MD SEND OUTS Performing Organization Address City/State/[facility] Co de Phone Number [facility] [address] [phone] * (ABNORMAL) MANUAL DIFFERENTIAL (01/05/2024 9:36 AM CDT) % NEUTROPHILS 80.0 % 01/05/2024 10:17 AM [facility] % LYMPHOCYTES 14.0 % 01/05/2024 10:17 AM [facility] % MONOCYTES 3.0 % 01/05/2024 10:17 AM [facility] % EOSINOPHILS 3.0 % 01/05/2024 10:17 AM [facility] % BASOPHILS 0.0 % 01/05/2024 10:17 AM [facility] NEUTROPHILS ABSOLUTE 3.2 1.7 - 7.0 thou/cu mm 01/05/2024 10:17 AM [facility] LYMPHOCYTES ABSOLUTE 0.6(L) 0.9 - 2.9 thou/cu mm 01/05/2024 10:17 AM [facility] MONOCYTES ABSOLUTE 0.1 <0.9 thou/cu mm 01/05/2024 10:17 AM [facility] EOSINOPHILS ABSOLUTE 0.1 <0.5 thou/cu mm 01/05/2024 10:17 AM CDT [facility] BASOPHILS ABSOLUTE 0.0 <0.3 thou/cu mm 01/05/2024 10:17 AM T [facility] Blood BLOOD SPECIMEN / Unknown Butterfly / Unknown 01/05/2024 9:36 AM CDT 01/05/2024 9:44 AM CDT John Zaldivar MD HEMATOLOGY Performing Organization Address [facility] Co de Phone Number [facility] [address] [place] [phone] * COVID-19 MOLECULAR (01/05/2024 9:34 AM CDT) Pathologist [facility] [place] COVID 19 [place] MOLECULAR Not detected Not detected 01/05/2024 10:00 AM [facility] TESTING LABORATORY [facility] 01/05/2024 10:00 AM T [facility] Comment:Specimen submitted t o [facility] for testing. Other SPECIMEN FROM NASOPHARYNGEAL STRUCTURE / Unknown Non-Blood / Unknown 01/05/2024 9:34 AM CDT 01/05/2024 9:39 AM CDT John Zaldivar MD MICROBIOLOGY Performing Organization Address [facility] de Phone Number [facility] [address] [place] [phone] * CRITICAL CARE PROVIDED (01/05/2024 9:24 AM CDT) Narrative John Zaldivar MD - 01/05/2024 9:24 AM CDT John Zaldivar MD ? 01/05/2024 ??1:52 PM CRITICAL CARE PROVIDED Performed by: John Zaldivar MD Authorized by: John Zaldivar MD ?? Critical care provider statement: ??Critical care time (minutes): ??42 ??Critical care time was exclusive of: ??Separately billable procedures and treating other patients ??Critical care was necessary to treat or prevent imminent or life-threatening deterioration of the following conditions: ??Cardiac failure and renal failure ??Critical care was time spent personally by me on the following activities: ??Blood draw for specimens, ordering and performing treatments and interventions, ordering and review of laboratory studies, discussions with consultants, ordering and review of radiographic studies, pulse oximetry, evaluation of patient's response to treatment, re-evaluation of patient's condition, examination of patient and review of old charts ??I assumed direction of critical care for this patient from another provider in my specialty: no ?Care discussed with: accepting provider at another facility ?? John Zaldivar MD PROCEDURE ORD * (ABNORMAL) URINE CULTURE (01/04/2024 10:45 PM CDT) CULTURE RESULT(A) 01/07/2024 7:01 AM CDT [facility] CULTURE >100,000 CFU/mL Serratia species 01/07/2024 7:01 AM CDT [facility] Comment:Oral cephalosporins are not recommended due to concern for derepression of AmpC beta-lactamases. Urine URINE SPECIMEN / Unknown Client Collect / Unknown 01/04/2024 10:45 PM CDT 01/04/2024 11:26 PM CDT Narrative Organism Antibiotic Method Susceptibility Serratia species TRIMETHOPRIM/SULF <=1/19: S Serratia species CEFAZOLIN >=64: R Serratia species GENTAMICIN <=1: S Serratia species CEFTRIAXONE <=1: S Serratia species CEFTAZIDIME <=1: S Serratia species LEVOFLOXACIN 1: I Serratia species CIPROFLOXACIN 1: R Serratia species CEFEPIME <=1: S Serratia species TOBRAMYCIN 2: S Serratia species MEROPENEM <=0.25: S Serratia species NITROFURANTOIN 128: R Arlette Nath NP MICROBIOLOGY [facility] [address] [place] [address], [place] * CT ABDOMEN PELVIS WO (10/11/2023 12:20 PM [facility]) Anatomical Region Laterality Modality Abdomen, Pelvis, AORTA, LIVER, SPLEEN Computed Tomography Impressions 10/11/2023 1:02 PM [facility] 1. ??Few colonic diverticula without evidence of acute diverticulitis. 2. ??Right lower quadrant transplant kidney. ??Moderate right pelvocaliectasis and dilatation of the right ureter. ??Pelvocaliectasis and is similar compared to 202, but distention of the ureter is new. ??No obstructing stone or mass detected. 3. ??Mild diffuse thickening of the urinary bladder wall, nonspecific. ?? Correlate for infection. 4. ??Cholelithiasis. ??Borderline dilatation of the CBD. ??No radiopaque stone obstructing mass evident. 5. ??1.9 cm rounded lesion at the level of the pancreatic head measuring slightly greater than water attenuation. ??This may reflect a cystic lesion, but is indeterminate. ??Recommend further characterization with MRI. 6. ??Bridging osteophytes spanning the included mid and lower thoracic spine extending to L2. ??Transversely oriented fracture through the anterior aspect of the T8 vertebral body extending to the disc space. ?? This is chronic in appearance, but is new compared to 202. 7. ??Small bilateral pleural effusions and findings of pulm interstitial edema Narrative 10/11/2023 1:02 PM MAIL CENSOR Indication: Left lower quadrant abdominal Technique: Noncontrast CT of the abdomen pelvis with multiplanar reformations. Comparison: CT abdomen pelvis 09/17/2020. ??Ultrasound 10/10/2023. Findings: Small bilateral pleural effusions and findings of pulmonary interstitial edema. Liver: Slightly nodular hepatic contour, suspicious for cirrhosis. ??No focal panic mass evident by noncontrast ET. Gallbladder: Numerous calcified gallstones. ??CBD at the upper limits of normal in caliber. ??No radiopaque obstructing stones or mass. Spleen: No abnormalities. Adrenal glands: No abnormalities. Pancreas: Largely fatty replaced. ??1.9 cm rounded lesion at the level of the pancreatic head measuring slightly greater than water attenuation (axial series 2 image 79). Kidneys: Atrophic three affiliated kidneys. ??Right lower quadrant transplant kidney. Moderate pelvocaliectasis, similar compared to 2020. ??Moderately distended ureter, increase in caliber compared to 2020. ??No obstructing stone or mass evident. ??Mild diffuse thickening of the urinary bladder wall. Reproductive: Prostate mildly enlarged and heterogeneous. Bowel: No bowel obstruction or focal inflammation. ??Few colonic diverticula without evidence of acute diverticulitis. ??No findings of appendicitis. Lymphovascular: Scattered atherosclerosis. ??No aneurysm. ??Scattered small retroperitoneal and pelvic lymph nodes. ??No pathologically enlarged nodes. Peritoneal space: No free fluid or free intraperitoneal air. ??No organized fluid collection. Abdominal wall: Intact. Osseous structures: Degenerative spondylosis. ??Numerous contiguous bridging osteophytes through the included mid lower thoracic spine extending into the L2 level. ??Transversely oriented fracture through the anterior aspect of the T8 vertebral body extending to the T8-T9 disc space, new compared to 2020, but chronic in appearance. Cielo Kim ASSISTANT VICE PRESIDENT CT * COLONOSCOPY SCREENING (03/20/2015) Sidney Camilo MD GI PROCEDURE ORD * ANTI HCV (07/29/2014 8:25 AM MAIL CENSOR) HEPATITIS C ANTIBODY Non-Reacti ve Non-Reacti ve 07/29/2014 4:19 PM MAIL CENSOR [facility] Blood specimen (specimen) BLOOD SPECIMEN / Unknown Venipuncture / Unknown 07/29/2014 8:25 AM MAIL CENSOR 07/29/2014 8:25 AM MAIL CENSOR Narrative [facility] - 07/29/2014 4:19 PM MAIL CENSOR Antibodies to HCV not detected; does not exclude the possibility of exposure to HCV. Momo Forbes MD SEND OUTS [facility] [address] [place] [address], [place] from Last 3 Months or Most Recently Relevant to Health Maintenance Additional Health Concerns Infection Onset Date Last Indicated MRSA Comment:Order Contact Precautions. Nares surveillance cultures needed to clear patient if <12 months since positive culture. If >12 months since positive culture, precautions can be discontinued if patient has no MRSA risk factors. 4/8/24 nares MRSA screen neg but has been on vanco so not eligible for consideration related to d/c precautions. 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 +MRSA 06/30/2023 ankle +MRSA 08/24/2023, nares Patient resides in a LTCF exclusions for contact precaution discontinuation (if > 12 months since positive culture): resides in acute/terminal clerk care, receiving hemodialysis, has chronic open wounds/skin damage, has long-term percutaneous indwelling medical devices Exclusions for nares collection (if <12 months since positive culture) include all of the previous exclusions plus patients on antibiotics 7 days prior to collection 06/30/2023 08/24/2023 Advance Directives Documents on File Type Date Recorded 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 Commander Expl anation POLST 10/20/2023 Healthcare Directive 06/23/2023 023 POLST 09/26/2020 * Full Code (Latest Code Status on File) Date Activated Date Inactivated Comments 01/05/2024 4:16 PM 01/13/2024 3:25 PM Question Answer Comments Code Status Discussion: Reviewed Preferences * Full Code Date Activated Date Inactivated Comments 11/22/2023 4:49 PM 12/14/2023 5:35 PM Question Answer Comments Code Status Discussion: Other POLST * Full Code Date Activated Date Inactivated Comments 11/21/2023 5:36 PM 11/22/2023 4:10 PM Question Answer Comments Code Status Discussion: Reviewed Preferences * DNR Date Activated Date Inactivated Comments 11/21/2023 2:16 PM 11/21/2023 5:36 PM Question Answer Comments Code Status Discussion: Reviewed Preferences * Full Code Date Activated Date Inactivated Comments 11/21/2023 10:33 AM 11/21/2023 2:15 PM Question Answer Comments Code Status Discussion: Reviewed Preferences Care Teams Traffic Court Magistrate Relationship Specialty Start Date End Date Momo Forbes MD [address] [place] [address] PCP - General Family Practice 01/22/21 [facility], [place] [id number] [place] [address] 06/25/23
--- OUTSIDE RECORDS SUMMARY | 2024-03-15 12:58 | XMS_ITS | Encounter Summary ---
Author Organization [place] Address [address] [place] [address] Care Team Providers Care Health Informatics Specialist Name Role Phone Momo Forbes MD Primary Care Provider [phone] Satish Gómez MD Unavailable Jane Francis MD Unavailable [phone] Jane Francis MD Unavailable [phone] Encounter Details Date Type Department Care Team [...] Description 05/31/2024 3:05 PM CDT Office Visit [facility] [address] [place] [address] Satish Gómez MD [address] [address] Jane Francis MD [address] [place], [place] [address] documented as of this encounter Procedures Procedure [...] in this encounter Care Teams Health Informatics Specialist Relationship Specialty Start Date End Date Momo Forbes MD PCP - General Family Practice 01/02/14 Satish Gómez MD [address] [address] Nephrology 10/07/23 Jane Francis MD [address] [place] [address] Nephrology 10/07/23 Jane Francis MD [address] [place] [address] Nephrology 01/30/24 documented as of this encounter
--- OUTSIDE RECORDS SUMMARY | 2024-03-15 12:58 | XMS_ITS | Encounter Summary ---
Author Organization [place] Address [address] [place] [address] Care Team Providers Care Sewing Machine Operator Semiautomatic Name Role Phone Momo Forbes MD Primary Care Provider Satish Gómez MD Unavailable Jane Francis MD Unavailable [phone] Reason for Visit * Reason Onset Date Comments update 12/20/2023 Encounter Details Date Type Department Care Team (Late st Contact Info) Description 12/20/2023 Telephone [facility] [address] [place] [address] Gretta Peacock RN update Social History Tobacco Use Types Packs/Day Years [...] Telephone Encounter - Gretta Peacock RN - 12/20/2023 1:00 PM CDT Lab fax # [phone] Patient is currently at [facility], however may be transferring to alternate TCU later this week. BMP and CBC were obtained yesterday- will request for lab results to be faxed to [facility]. Will fax tacrolimus lab orders over to be obtained this week. Reviewed 12 hour trough with JA, slime V/U Gretta Peacock automotive airconditioning mechanicSfdc Consultant [phone] * Telephone Encounter - Latricia Alejandro - 12/20/2023 8:12 AM CDT Patient Call: General Route to CREATIVE SERVICES DESIGNER Reason for call: Katrina [facility], wanting to talk with Coordinator, regarding patient's resent Admission to TCU, and when should patient follow up with Transplant team. Katrina is also wanting to know when tacrolimus level should be repeated. Call back needed? Yes Return Call Needed Same as documented in contacts section When to return call?: Same day: Route High Priority documented in this encounter Plan of Treatment Upcoming Encounters Date Type Department Care Team (Late st Contact Info) Description 05/31/2024 3:05 PM CDT Office Visit [facility] [address] [place] [address] Satish Gómez MD [address] [place] [phone] Jane Francis MD [address] [place] [phone] documented as of this encounter Visit Diagnoses Not on filedocumented in this encounter Care Teams Sewing Machine Operator Semiautomatic Relationship Specialty Start Date End Date Momo Forbes MD PCP - General Family Practice 01/02/14 Satish Gómez MD [address] [place] [id number] Nephrology 10/07/23 Jane Francis MD [address] [place] [address] Nephrology 10/07/23 documented as of this encounter
--- OUTSIDE RECORDS SUMMARY | 2024-03-15 12:58 | XMS_ITS | Encounter Summary ---
Author Organization [place] Address [address] [place] [address] Care Team Providers Care Hair Dryer Name Role Phone Momo Forbes MD Primary Care Provider Satish Gómez MD Unavailable Jane Francis MD Unavailable [phone] Jane Francis MD Unavailable [phone] Encounter Details Date Type Department Care Team (Late st Contact Info) Description 10/19/2022 External Order Results [facility] [address] [place] [address] Outside, Provider Social History Tobacco Use Types [...] Coronavirus/COVID-19? No / Unsure 10/22/2022 7:28 AM BOMB TECHNICIAN documented as of this encounter Plan of Treatment Upcoming Encounters Date Type Department Care Team (Late st Contact Info) Description 05/31/2024 3:05 PM CDT Office Visit [facility] [address] [place] [phone] Satish Gómez MD [address] [address] Jane Francis MD [address] [place], [place] [phone] documented as of this encounter Procedures Procedure Name Priority Date/Time Associated Diagnosis Comments CBC WITH PLATELETS & DIFFERENTIAL Routine 10/19/2022 11:00 AM BOMB TECHNICIAN BASIC METABOLIC PANEL Routine 10/19/2022 11:00 AM BOMB TECHNICIAN documented in this encounter Results * (ABNORMAL) CBC with Platelets & Differential (10/19/2022 11:00 AM BOMB TECHNICIAN) WBC Count (External) 5.74 4.50 - 11.00 [...] BLOOD SPECIMEN / Unknown 10/19/2022 11:00 AM BOMB TECHNICIAN Narrative JESSICA PFT - 10/21/2022 11:10 AM BOMB TECHNICIAN Verified by Andrade Barajas on 10/21/2022. Provider Outside LAB - BLOOD ORDERABL ES JESSICA [facility] NON-INTERFACED (ONBASE SCANS) * (ABNORMAL) Basic metabolic panel (10/19/2022 11:00 AM BOMB TECHNICIAN) Sodium (External) 142 135 - 149 mmol/L [...] BLOOD SPECIMEN / Unknown 10/19/2022 11:00 AM BOMB TECHNICIAN Narrative JESSICA PFT - 10/21/2022 11:10 AM BOMB TECHNICIAN Verified by Andrade Barajas on 10/21/2022. Provider Outside LAB - BLOOD ORDERABL ES JESSICA PFKofi NON-INTERFACED (ONBASE SCANS) documented in this encounter Visit Diagnoses Not on filedocumented in this encounter Care Teams Hair Dryer Relationship Specialty Start Date End Date Momo Forbes MD PCP - General Family Practice 01/02/14 Satish Gómez MD [address] [address] Nephrology 10/07/23 Jane Francis MD [address] [place], [place] [phone] Nephrology 10/07/23 Jane Francis MD [address] [place] [address] Nephrology 01/30/24 documented as of this encounter
--- OUTSIDE RECORDS SUMMARY | 2024-03-15 12:58 | XMS_ITS | Referral Summary ---
Author Organization [place] Address [address] [place] [address]. [place] [address] Care Team Providers Care Clinical Laboratory Aide Name Role Phone Momo Forbes MD Primary Care Provider Satish Gómez MD Unavailable Jane Francis MD Unavailable [phone] Jane Francis MD Unavailable [phone] Encounters Date Type Department Care Team Description 01/04/2024 Telephone [facility] [address] [place] [address] Gretta Peacock RN 12/20/2023 Telephone [facility] [address] [place] [address] Gretta Peacock, BOGDAN update from Last 3 Months Allergies Active Allergy Reactions Criticality Noted Date Comments Lisinopril 05/14/2014 Medications Medication Sig Dispensed Refills Start Date End Date Status LANTUS VIAL 100 UNITS/ML SC SOLN Inject 50 Units Subcutaneous every evening Active HumaLOG VIAL 100 UNITS/ML SOLN Inject 20-40 Units Subcutaneous 3 times daily (before meals) Patient reported his dose 10-12 unit 2-3 times daily before meals Active rosuvastatin (CRESTOR) 10 MG tabletIndications:DM (diabetes mellitus), type 2 (H),Other and unspecified hyperlipidemia Take 1 tablet (10 mg) by mouth daily 90 tablet 3 04/22/2015 Active gabapentin 300 MG PO capsule Take 300 mg by mouth 3 times daily 10/08/2019 Active carvedilol 6.25 MG PO tabletIndications:HT N, kidney transplant related Take 1 tablet (6.25 mg) by mouth 2 times daily (with meals) 180 tablet 3 10/09/2019 Active losartan 100 MG PO tablet Take 1 tablet (100 mg) by mouth daily 90 tablet 3 10/09/2019 Active mycophenolate (GENERIC EQUIVALENT) 250 MG capsuleIndications:Aline idolivia transplanted, d-donor kidney transplant recipient TAKE THREE CAPSULES BY MOUTH TWICE A DAY 180 capsule 11 10/15/2022 Active apixaban ANTICOAGULANT (ELIQUIS) 5 MG tablet Take 2.5 mg by mouth 2 times daily Active levothyroxine (SYNTHROID/LEVOTHROI D) 50 MCG tablet Take 50 mcg by mouth daily Active pantoprazole (PROTONIX) 40 MG EC tablet Take 40 mg by mouth daily Active potassium chloride ER (KLOR-CON M) 20 MEQ CR tablet Take 20 mEq by mouth 2 times daily Active PROGRAF (BRAND) 1 MG capsuleIndications:Aline idney transplanted Take 1 capsule (1 mg) by mouth 2 times daily HOLD FOR FUTURE DOSE CHANGES 30 capsule 11 11/11/2022 Active PROGRAF (BRAND) 0.5 MG capsuleIndications:Aline zamorano transplanted, d-donor kidney transplant recipient Take 1 [...] 136.1 kg (300 lb) 10/22/2022 8:00 AM PRESIDENT AND CMO Height 182.9 cm (6') 10/22/2022 8:00 AM PRESIDENT AND CMO Body Mass Index 40.69 10/22/2022 8:00 AM PRESIDENT AND CMO Plan of Treatment Upcoming Encounters Date Type Department Care Team (Late st Contact Info) Description 05/31/2024 3:05 PM CDT Office Visit [facility] [address] [place] [address] Satish Gómez MD 717 [facility] [address] [place] [address] Jane Francis MD [address] [place] [address] Medical Devices Explanted Type Area Small Boat Engineer Device Identifier Shelf Expiration Date Model / Serial / Lot Stent Ureteral Childress Renal Transplant [id number] Implanted:Qty: 1 on 02/02/2014 by Migel Merchant MD at [facility] Explanted:Qty: 1 on 04/01/2014 by Celina Cole MD at [facility] Right: Ureter [employer] 11/19/2016 [id number] / / [id number] Procedures Procedure Name Priority Date/Time Associated Diagnosis Comments CT CHEST W/O CONTRAST Routine 11/30/2023 12:[address] ABDOMEN PELVIS W/O CONTRAST Routine 10/11/2023 12:20 PM PRESIDENT AND CMO BASIC METABOLIC PANEL Routine 12/06/2022 2:15 PM CDT HEMOGLOBIN A1C Routine 09/14/2022 10:30 AM PRESIDENT AND CMO LIPID PROFILE Routine 11/16/2021 7:12 PM CDT HEPATITIS C ANTIBODY STAT 02/02/2014 2:07 PM CDT from Last 3 Months or Most Recently Relevant to Health Maintenance Results * (ABNORMAL) Basic metabolic panel (12/06/2022 2:15 [...] SPECIMEN / Unknown 12/06/2022 2:15 PM CDT Yohana LOPEZ PFT - 12/08/2022 1:00 PM CDT Verified by Ruperto Pepper on 12/08/2022. Patient Reported LAB - BLOOD ORDERABL ES JESSICA PFKofi NON-INTERFACED (ONBASE SCANS) * (ABNORMAL) Hemoglobin A1c (09/14/2022 10:30 AM PRESIDENT AND CMO) Hemoglobin A1C (External) 7.28(H) 0 - 5.6 % NON-INTERFACE D (ONBASE SCANS) Blood BLOOD SPECIMEN / Unknown 09/14/2022 10:30 AM PRESIDENT AND CMO Yohana ROSARIOE PFT - 09/15/2022 7:58 AM PRESIDENT AND CMO Verified by Ruperto Pepper on 09/15/2022. Momo Forbes MD LAB - BLOOD ORDERABL ES Performing Organization Address [facility]/ZIP Co de Phone Number JESSICA PFT NON-INTERFACED (ONBASE SCANS) * (ABNORMAL) Lipid Profile (11/16/2021 7:12 PM CDT) Cholesterol (External) 98 90 - 199 MG/DL NON-INTERFACE D (ONBASE SCANS) Triglycerides (External) 113 40 - 149 MG/DL NON-INTERFACE D (ONBASE SCANS) LDL-Cholesterol (External) 39 <100 mg/dL NON-INTERFACE D (ONBASE SCANS) HDL Cholesterol (External) 36(L) >=40 mg/dL NON-INTERFACE D (ONBASE SCANS) Blood 11/16/2021 7:12 PM CDT Narrative JESSICA PFT - 12/02/2021 8:18 AM CDT Verified by Yudi Ruano on 12/02/2021. Felicia Ttae MD LAB - BLOOD SURYA HURST Performing Organization Address [facility]/ZIP Co de Phone Number ZAHCERYEZE PFT NON-INTERFACED (ONBASE SCANS) * Hepatitis C antibody (02/02/2014 2:07 PM CDT) Hepatitis C Antibody Negative NEG [facility] Blood specimen (specimen) 02/02/2014 2:07 PM CDT 02/02/2014 2:08 PM CDT Caitlin Owens MD LAB - BLOOD ORDERABL ES [facility] from Last 3 Months or Most Recently Relevant to Health Maintenance Advance Directives For more information, please contact: [phone] * Full Code (Latest Code Status on File) Date Activated Date Inactivated Comments 04/01/2014 9:03 AM 10/22/2022 7:29 AM * Full Code Date Activated Date Inactivated Comments 02/08/2014 7:12 AM 04/01/2014 9:03 AM * Full Code Date Activated Date Inactivated Comments 02/03/2014 12:56 AM 02/08/2014 7:12 AM Care Teams Clinical Laboratory Aide Relationship Specialty Start Date End Date Momo Forbes MD PCP - General Family Practice 01/02/14 Satish Gómez MD [address] [place] [phone] Nephrology 10/07/23 Jane Francis MD [address] [place] [address] Nephrology 10/07/23 Jane Francis MD [address] [place], [place] [address] Nephrology 01/30/24
--- OUTSIDE RECORDS SUMMARY | 2024-03-15 12:58 | XMS_ITS | Clinical Summary ---
Author Organization [place] Address [address] [place] [address]. [place] [address] Care Team Providers Care Insulation Nozzleman Name Role Phone Momo Forbes MD Primary Care Provider Satish Gómez MD Unavailable Jane Francis MD Unavailable [phone] Jane Francis MD Unavailable [phone] Allergies Active Allergy Reactions Criticality Noted Date [...] daily Active PROGRAF (BRAND) 1 MG capsuleIndications:Aline zamorano [...] Type Department Care Team Description 01/04/2024 Telephone [facility] [address] [place] [phone] Gretta Peacock RN 12/20/2023 Telephone [facility] [address] [place] [address] Gretta Peacock, BOGDAN update from Last 3 Months Immunizations Name Administration [...] 136.1 kg (300 lb) 10/22/2022 8:00 AM VIRTUALIZATION ENGINEER Height 182.9 cm (6') 10/22/2022 8:00 AM VIRTUALIZATION ENGINEER Body Mass Index 40.69 10/22/2022 8:00 AM VIRTUALIZATION ENGINEER Plan of Treatment Upcoming Encounters Date Type Department Care Team (Late st Contact Info) Description 05/31/2024 3:05 PM CDT Office Visit [facility] [address] [place] [address] Satish Gómez MD [address] [address] Jane Francis MD [address] [place] [address] Health Maintenance Due Date Last Done Comments ADVANCE CARE PLANNING 1950 ANNUAL REVIEW OF HM ORDERS [address] CT COLONOGRAPHY 1950 DIABETIC FOOT EXAM 1950 FLEX SIG 1950 MICROALBUMIN 1950 sDNA (Cologuard) 1950 ZOSTER IMMUNIZATION (1 of 2) 1969 RSV [...] exists COVID-19 Vaccine ( season) 2023 09/22/2021, 11/18/2020, 10/21/2020 FIT 06/15/2023 06/15/2022 PHQ-2 (once per calendar year) 2023 10/10/2017 BMP 12/07/2023 12/06/2022, 0408/2022, 11/08/2022, Additional history exists INFLUENZA VACCINE (#1) 2024 , 07/01/2022, 09/22/2021, Additional history exists COLONOSCOPY 03/20/2025 03/20/2015 COLORECTAL CANCER SCREENING 03/20/2025 DTAP/TDAP/TD IMMUNIZATION (5 - Td or Tdap) 01/12/2029 01/12/2019, 12/23/2018, 12/23/2018, Additional history exists HEPATITIS C SCREENING Completed 02/02/2014, 012 AORTIC ANEURYSM SCREENING (SYSTEM ASSIGNED) Completed 10/11/2023, 08/12/2022, 09/17/2020 LUNG CANCER SCREENING Discontinued 11/30/2023 , 11/26/2023, 06/14/2022 HPV IMMUNIZATION Aged Out No longer e [...] this topic Medical Devices Explanted Type Area Swage Tender Device Identifier Shelf Expiration Date Model / Serial / Lot Stent Ureteral Childress Renal Transplant [id number] Implanted:Qty: 1 on 02/02/2014 by Migel Merchant MD at [facility] Explanted:Qty: 1 on 04/01/2014 by Celina Cole MD at [facility] Right: Ureter [employer] 11/19/2016 [id number] / / [id number] Procedures Procedure Name Priority Date/Time Associated Diagnosis Comments CT CHEST W/O CONTRAST Routine 11/30/2023 12:[address] ABDOMEN PELVIS W/O CONTRAST Routine 10/11/2023 12:20 PM VIRTUALIZATION ENGINEER BASIC METABOLIC PANEL Routine 12/06/2022 2:15 PM CDT HEMOGLOBIN A1C Routine 09/14/2022 10:30 AM VIRTUALIZATION ENGINEER LIPID PROFILE Routine 11/16/2021 7:12 PM CDT [...] Unknown 12/06/2022 2:15 PM CDT Narrative JESSICA ANDREAT - 12/08/2022 1:00 PM CDT Verified by Ruperto Pepper on 12/08/2022. Patient Reported LAB - BLOOD ORDERABL ES BREEZE PFT NON-INTERFACED (ONBASE SCANS) * (ABNORMAL) Hemoglobin A1c (09/14/2022 10:30 AM VIRTUALIZATION ENGINEER) Hemoglobin A1C (External) 7.28(H) 0 - 5.6 % NON-INTERFACE D (ONBASE SCANS) Blood BLOOD SPECIMEN / Unknown 09/14/2022 10:30 AM VIRTUALIZATION ENGINEER Narrative BREEZE PFT - 09/15/2022 7:58 AM VIRTUALIZATION ENGINEER Verified by Ruperto Pepper on 09/15/2022. Momo Forbes MD LAB - BLOOD ORDERABL ES Performing Organization Address [facility]/ZIP Co de Phone Number BREEZE PFT NON-INTERFACED (ONBASE SCANS) * (ABNORMAL) Lipid Profile (11/16/2021 7:12 PM CDT) Cholesterol (External) 98 90 - 199 MG/DL NON-INTERFACE D (ONBASE SCANS) Triglycerides (External) 113 40 - 149 MG/DL NON-INTERFACE D (ONBASE SCANS) LDL-Cholesterol (External) 39 <100 mg/dL NON-INTERFACE D (ONBASE SCANS) HDL Cholesterol (External) 36(L) >=40 mg/dL NON-INTERFACE D (ONBASE SCANS) Blood 11/16/2021 7:12 PM CDT Narrative [facility] - 12/02/2021 8:18 AM CDT Verified by Yudi Ruano on 12/02/2021. Felicia Tate MD LAB - BLOOD SURYA HURST BREEZE PFT NON-INTERFACED (ONBASE SCANS) * Hepatitis C antibody (02/02/2014 2:07 PM CDT) Hepatitis C Antibody Negative NEG [facility] Blood specimen (specimen) 02/02/2014 2:07 PM CDT 02/02/2014 2:08 PM CDT Caitlin Owens MD LAB - BLOOD ORDERABL ES [facility] from Last 3 Months or Most Recently Relevant to Health Maintenance Advance Directives For more information, please contact: [phone] * Full Code (Latest Code Status on File) Date Activated Date Inactivated Comments 04/01/2014 9:03 AM 10/22/2022 7:29 AM * Full Code Date Activated Date Inactivated Comments 02/08/2014 7:12 AM 04/01/2014 9:03 AM * Full Code Date Activated Date Inactivated Comments 02/03/2014 12:56 AM 02/08/2014 7:12 AM Care Teams Insulation Nozzleman Relationship Specialty Start Date End Date Momo Forbes MD PCP - General Family Practice 01/02/14 Satish Gómez MD [address] [id number] Nephrology 10/07/23 Jane Francis MD [address] [place], [place] [address] Nephrology 10/07/23 Jane Francis MD [address] [place] [address] Nephrology 01/30/24
--- OUTSIDE RECORDS SUMMARY | 2024-03-15 12:58 | XMS_ITS | Encounter Summary ---
Author Organization [place] Address [address] [place] [address] Care Team Providers Care General Road Production Manager Name Role Phone Momo Forbes MD Primary Care Provider Satish Gómez MD Unavailable Jane Francis MD Unavailable [phone] Jane Francis MD Unavailable [phone] Encounter Details Date Type Department Care Team (Late st Contact Info) Description 01/04/2024 Telephone [facility] [address] [place] [address] Gretta Peacock, RN Social History [...] Telephone Encounter - Gretta Peacock RN - 01/04/2024 4:39 PM CDT HOUSETRAILER SERVICER calling to discuss possibility of prescribing a diuretic as patient is in TCU and is having swelling in the lower extremity. Provider to provider number provided. Gretta Peacock social and human services assistantLine Leader [phone] * Telephone Encounter - Azael Rodriguez - 01/04/2024 11:02 AM CDT Tete called to touch base with the RNCC for some update and has some questions. documented in this encounter Plan of Treatment Upcoming Encounters Date Type Department Care Team (Late st Contact Info) Description 05/31/2024 3:05 PM CDT Office Visit [facility] [address] [place] [phone] Satish Gómez MD [address] [place] [address] 582044 Jane Francis MD [address] [place], [place] [phone] documented as of this encounter Visit Diagnoses Not on filedocumented in this encounter Care Teams General Road Production Manager Relationship Specialty Start Date End Date Momo Forbes MD PCP - General Family Practice 01/02/14 Satish Gómez MD [address] [place] [address] [id number] Nephrology 10/07/23 Jane Francis MD [address] [place], [place] [address] Nephrology 10/07/23 Jane Francis MD [address] [place], [place] [address]495 Nephrology 01/30/24 documented as of this encounter
--- OUTSIDE RECORDS SUMMARY | 2024-03-15 12:58 | XMS_ITS | Encounter Summary ---
Author Organization [place] Address [address] [place] [address] Care Team Providers Care Hotel Front Desk Clerk Name Role Phone Momo Forbes MD Primary Care Provider Satish Gómez MD Unavailable Jane Francis MD Unavailable [phone] Jane Francis MD Unavailable [phone] Reason for Visit * Reason Onset Date Comments Transplant Committee Review 10/20/2022 Encounter Details Date Type Department Care Team (Late st Contact Info) Description 10/20/2022 Team Conference [facility] [address] [place] [address] Alana Calderon LPN Social History Tobacco [...] Coronavirus/COVID-19? No / Unsure 10/22/2022 7:28 AM OVEN ROASTER documented as of this encounter Miscellaneous Notes * Telephone Encounter - Alana Calderon LPN - 10/20/2022 4:56 PM CST [facility] Team Conference Date: 10/20/2022 Taximeter Repairer: Gretta Peacock Attendees: [] Dr. Quintana [] Arline Leigh, RN [] Cristy Chen LPN [] Dr. Richey [] Isa Ly RN [] Alana Calderon LPN [] Dr. Herrera [] Gladis Man RN [] Dr. Gómez [] Amanda Holland RN [] Destin Tom, PharmD [] Dr. Myles [] Gretta Peacock RN [] Dr. Rabago [] Cosmo Recinos RN [] Dr. Guerrero [] Barbie Ugalde RN [] Nita Garcia RN [] Dr. Dangelo [] Nazia Jacobson RN [] Dr. Holland [] Yudi Porras RN [] Dr. Merchant [] Inez Chávez RN [] Radha Kaufman NP [] Catrina Dinh RN Verbal Plan Read Back: Urgent PNT with in 2 days Routed to RN Coordinator Alana Calderon LPN ROASTER documented in this encounter Plan of Treatment Upcoming Encounters Date Type Department Care Team (Late st Contact Info) Description 05/31/2024 3:05 PM CDT Office Visit [facility] [address] [place] [address] Satish Gómez MD [address] [place] [address] Jane Francis MD [address] [place] [address] documented as of this encounter Visit Diagnoses Not on filedocumented in this encounter Care Teams Hotel Front Desk Clerk Relationship Specialty Start Date End Date Momo Forbes MD PCP - General Family Practice 01/02/14 Satish Gómez MD [address] [address] Nephrology 10/07/23 Jane Francis MD [address] [place], [place] [address] Nephrology 10/07/23 Jane Francis MD [address] [place], [place] 7[address]75 Nephrology 01/30/24 documented as of this encounter
--- OUTSIDE RECORDS SUMMARY | 2024-03-15 12:58 | XMS_ITS | Encounter Summary ---
Author Organization [place] Address [address] [place] [address] Care Team Providers Care Cardiac Cath Technologist Name Role Phone Momo Forbes MD Primary Care Provider Satish Gómez MD Unavailable Jane Francis MD Unavailable [phone] Jane Francis MD Unavailable [phone] Encounter Details Date Type Department Care Team (Late st Contact Info) Description 12/06/2022 External Order Results [facility] [address] [place] [address] Outside, Provider Social History Tobacco Use Types [...] Visit [facility] [address] [place] [phone] Satish Gómez MD 717 [facility] [address] [place], [place] [address] Jane Francis MD 500 [place] [address] documented as of this encounter Procedures Procedure [...] Negative ML NON-INTERFAC ED (ONBASE SCANS) Specific [place] Urine (External) 1.015 1.000 - 1.030 ML [...] SCANS) Urine 12/06/2022 2:15 PM CDT Narrative JESSICA PFT [...] Unknown 12/06/2022 2:15 PM CDT Narrative JESSICA THIBODEAUX - 12/08/2022 1:00 PM CDT Verified by [...] / Unknown 12/06/2022 2:15 PM CDT Narrative MARLENEE PFT - 12/08/2022 1:00 PM CDT Verified by Ruperto Pepper on 12/08/2022. Patient Reported LAB - BLOOD ORDERABL ES BREEZE PFT NON-INTERFACED (ONBASE SCANS) documented in this encounter Visit Diagnoses Not on filedocumented in this encounter Care Teams Cardiac Cath Technologist Relationship Specialty Start Date End Date Momo Forbes MD PCP - General Family Practice 01/02/14 Satish Gómez MD [address] [place] [address] Nephrology 10/07/23 Jane Francis MD [address] [place] [address] Nephrology 10/07/23 Jane Francis MD [address] [place] [address] Nephrology 01/30/24 documented as of this encounter
--- OUTSIDE RECORDS SUMMARY | 2024-03-15 12:58 | XMS_ITS | Encounter Summary ---
Author Organization [facility] Address [address] [place] [address] Care Team Providers Care Principal Investigator Name Role Phone Momo Forbes MD Primary Care Provider Satish Gómez MD Unavailable Jane Francis MD Unavailable [phone] Jane Francis MD Unavailable [phone] Encounter Details Date Type Department Care Team (Late st Contact Info) Description 10/19/2022 External Order Results [facility] [address] [place] [address] Outside, Provider Social History Tobacco Use Types [...] Coronavirus/COVID-19? No / Unsure 10/22/2022 7:28 AM CLAIMS ADMINISTRATOR documented as of this encounter Plan of Treatment Upcoming Encounters Date Type Department Care Team (Late st Contact Info) Description 05/31/2024 3:05 PM CDT Office Visit [facility] [address] [place] [phone] Satish Gómez MD 717 [facility] 353 [place], [place] [address] Jane Francis MD [address] [place], [place] 3[address] documented as of this encounter Procedures Procedure Name Priority Date/Time Associated Diagnosis Comments TACROLIMUS BY TANDEM MASS SPECTROMETRY Routine 10/19/2022 11:00 AM CLAIMS ADMINISTRATOR documented in this encounter Results * Tacrolimus by Tandem Mass Spectrometry (10/19/2022 11:00 AM CLAIMS ADMINISTRATOR) Tacrolimus(FK-5 06) (External) 8.2 5.0 - 15.0 ng/ml NON-INTERFACED (ONBASE SCANS) Blood 10/19/2022 11:0 0 AM CLAIMS ADMINISTRATOR Narrative JESSICA PFT - 10/28/2022 9:41 AM CLAIMS ADMINISTRATOR Verified by Andrade Barajas on 10/28/2022. Joseph Quintana MD LAB - BLOOD [facility] Organization Address City/State/ZIP Co de Phone Number JESSICA PFT NON-INTERFACED (ONBASE SCANS) documented in this encounter Visit Diagnoses Not on filedocumented in this encounter Care Teams Principal Investigator Relationship Specialty Start Date End Date Momo Forbes MD PCP - General Family Practice 01/02/14 Satish Gómez MD 717 [facility] 353 [place], [place] [address] Nephrology 10/07/23 Jane Francis MD [address] [place], [place] [phone] Nephrology 10/07/23 Jane Francis MD [address] [place] [address] Nephrology 01/30/24 documented as of this encounter
--- OUTSIDE RECORDS SUMMARY | 2024-03-15 12:59 | XMS_ITS | Encounter Summary ---
Author Organization [place] Address [address] [place] [address] Care Team Providers Care Manager Sports Name Role Phone Momo Forbes MD Primary Care Provider + [phone] Joseph Quintana MD Unavailable [phone] Satish Gómez MD Unavailable Jane Francis MD Unavailable [phone] Jane Francis MD Unavailable [phone] Encounter Details Date Type Department Care Team (Late st Contact Info) Description 01/27/2021 External Order Results [facility] [address] [place] [address] Outside, Provider Social History Tobacco Use [...] CDT Office Visit [facility] [address] [place] [address] Satish Gómez MD [address] [place] [address] Jane Francis MD [address] [place] [address] documented as of this encounter Procedures Procedure [...] filedocumented in this encounter Care Teams Manager Sports Relationship Specialty Start Date End Date Momo Forbes MD PCP - General Family Practice 01/02/14 Joseph Quintana MD 717 [facility] [address] [facility] [address] [place], [place] [phone] Assigned Nephrology Provider 03/29/21 09/10/22 Satish Gómez MD [address] [facility] [address] [facility] [address] [place], [place] [phone] Nephrology 10/07/23 Jane Francis MD [address] [place] [address] Nephrology 10/07/23 Jane Francis MD [address] [place] [address] Nephrology 01/30/24 documented as of this encounter
--- OUTSIDE RECORDS SUMMARY | 2024-03-15 12:59 | XMS_ITS | Encounter Summary ---
Author Organization [place] Address [address] [place] [address] Care Team Providers Care Appointment Clerk Name Role Phone Momo Forbes MD Primary Care Provider + [phone] Joseph Quintana MD Unavailable [phone] Satish Gómez MD Unavailable Jane Francis MD Unavailable [phone] Jane Francis MD Unavailable [phone] Encounter Details Date Type Department Care Team (Late st Contact Info) Description 05/26/2020 External Order Results [facility] [address] [place] [address] Outside, Provider Social History Tobacco Use [...] Description 05/31/2024 3:05 PM CDT Office Visit [facility] [address] [place] [phone] Satish Gómez MD [address] [place] [address] Jane Francis MD [address] [place] [address] documented as of this encounter Procedures Procedure [...] specimen (specimen) 05/26/2020 10:25 AM CDT Narrative ZACHERYMARIELAE PFT - 05/27/2020 12:06 PM CDT Verified by Ruperto Pepper on 05/27/2020. Patient Reported LAB - URINE ORDERABL ES ZACHERYTYLER PFT LABDE SCAN * (ABNORMAL) CBC with [...] filedocumented in this encounter Care Teams Appointment Clerk Relationship Specialty Start Date End Date Momo Forbes MD PCP - General Family Practice 01/02/14 Joseph Quintana MD [address] [place] [address] Assigned Nephrology Provider 03/29/21 09/10/22 Satish Gómez MD [address] [address] Nephrology 10/07/23 Jane Francis MD [address] [place] [address] Nephrology 10/07/23 Jane Francis MD [address] [place] [address] Nephrology 01/30/24 documented as of this encounter
--- OUTSIDE RECORDS SUMMARY | 2024-03-15 12:59 | XMS_ITS | Encounter Summary ---
Author Organization [place] Address [address] [place] [address] Care Team Providers Care Svp Of Digital Name Role Phone Momo Forbes MD Primary Care Provider [phone] Satish Gómez MD Unavailable Jane Francis MD Unavailable [phone] Jane Francis MD Unavailable [phone] Encounter Details Date Type Department Care Team (Late st Contact Info) Description 09/14/2022 External Order Results [facility] [address] [place] [address] Outside, Provider Social History Tobacco Use Types [...] Description 05/31/2024 3:05 PM CDT Office Visit [facility] [address] [place] [address] Satish Gómez MD [address] [address] Jane Francis MD [address] [place] [address] documented as of this encounter Procedures Procedure Name Priority Date/Time Associated Diagnosis Comments CBC WITH PLATELETS & DIFFERENTIAL Routine 09/14/2022 10:30 AM CTE TEACHER HEMOGLOBIN A1C Routine 09/14/2022 10:30 AM CTE TEACHER documented in this encounter Results * (ABNORMAL) Hemoglobin A1c (09/14/2022 10:30 AM CTE TEACHER) Hemoglobin A1C (External) 7.28(H) 0 - 5.6 % NON-INTERFACE D (ONBASE SCANS) Blood BLOOD SPECIMEN / Unknown 09/14/2022 10:30 AM CTE TEACHER Narrative JESSICA PFT - 09/15/2022 7:58 AM CTE TEACHER Verified by Ruperto Pepper on 09/15/2022. Momo Forbes MD LAB - BLOOD ORDERABL ES JESSICA PF NON-INTERFACED (ONBASE SCANS) * (ABNORMAL) CBC with Platelets & Differential (09/14/2022 10:30 AM CTE TEACHER) WBC Count (External) 5.60 4.50 - 11.00 [...] BLOOD SPECIMEN / Unknown 09/14/2022 10:30 AM CTE TEACHER Narrative JESSICA PFT - 09/15/2022 7:58 AM CTE TEACHER Verified by Ruperto Pepper on 09/15/2022. Momo Forbes MD LAB - BLOOD ORDERABL ES BRETYLER PFT NON-INTERFACED (ONBASE SCANS) documented in this encounter Visit Diagnoses Not on filedocumented in this encounter Care Teams Svp Of Digital Relationship Specialty Start Date End Date Momo Forbes MD PCP - General Family Practice 01/02/14 Satish Gómez MD [address] [facility] [address] [address] Nephrology 10/07/23 Jane Francis MD [address] [place] [address] Nephrology 10/07/23 Jane Francis MD [address] [place] [address] Nephrology 01/30/24 documented as of this encounter
--- OUTSIDE RECORDS SUMMARY | 2024-03-15 12:59 | XMS_ITS | Encounter Summary ---
Author Organization [facility] Address [address] [place] [address] Care Team Providers Care Vice President Payer Name Role Phone Momo Forbes MD Primary Care Provider + [phone] Joseph Quintana MD Unavailable [phone] Satish Gómez MD Unavailable Jane Francis MD Unavailable [phone] Jane Francis MD Unavailable [phone] Encounter Details Date Type Department Care Team (Late st Contact Info) Description 11/16/2021 External Order Results [facility] [address] [place] [address] Outside, Provider Social History Tobacco Use Types [...] Description 05/31/2024 3:05 PM CDT Office Visit [facility] [address] [place] [address] Satish Gómez MD [address] [facility] [address] [address] Jane Francis MD [address] [place] [address] documented as of this encounter Procedures Procedure [...] Tate MD LAB - BLOOD SURYA HURST Performing Organization Address [facility]/ZIP Co de Phone Number BREEZE PFT NON-INTERFACED (ONBASE SCANS) * ALT (11/16/2021 7:12 PM CDT) ALT (External) 9 4 - 50 U/L NON- INTERFACED (ONBASE SCANS) Blood 11/16/2021 7:12 PM CDT Narrative BREEZE PFT - 12/02/2021 8:18 AM CDT Verified by Yudi Ruano on 12/02/2021. Felicia Tate MD LAB - BLOOD SURYA HURST BREEZE PFT NON-INTERFACED (ONBASE SCANS) * (ABNORMAL) [...] 12/02/2021 8:18 AM CDT Verified by Yudi Ruaon on 12/02/2021. Felicia Tate MD LAB - [...] SCANS) Blood 11/16/2021 4:35 PM CDT Narrative BREEZE PFT - 12/02/2021 [...] Family Practice 01/02/14 Joseph Quintana MD [address] [place] [address] Assigned Nephrology Provider 03/29/21 09/10/22 Satish Gómez MD [address] [address] Nephrology 10/07/23 Jane Francis MD [address] [place] [address] Nephrology 10/07/23 Jane Francis MD [address] [place], [place] [address] Nephrology 01/30/24 documented as of this encounter
--- OUTSIDE RECORDS SUMMARY | 2024-03-15 12:59 | XMS_ITS | Encounter Summary ---
Author Organization [place] Address [address] [place] [address] Care Team Providers Care Desktop Support Specialist Name Role Phone Momo Forbes MD Primary Care Provider + [phone] Joseph Quintana MD Unavailable [phone] Satish Gómez MD Unavailable Jane Francis MD Unavailable [phone] Jane Francis MD Unavailable [phone] Encounter Details Date Type Department Care Team (Late st Contact Info) Description 07/08/[address] [facility] [address] [place] [address] Outside, Provider Social History Tobacco Use [...] Description 05/31/2024 3:05 PM CDT Office Visit [facility] [address] [place] [phone] Satish Gómez MD [address] [place] [address] Jane Francis MD [address] [place], [place] [address] documented as of this encounter Procedures Procedure Name Priority Date/Time Associated Diagnosis Comments EXTERNAL LAB RESULTS Routine 07/08/2020 9:23 AM PACKAGING DESIGNER documented in this encounter Results * External Lab Results (07/08/2020 9:23 AM PACKAGING DESIGNER) Scan Lab Results (External) View Image LABDE SCAN Comment:HLA Antibody Screen, Class I and Class II 07/08/2020 9:23 AM PACKAGING DESIGNER Narrative JESSICA PFT - 07/16/2020 2:42 PM PACKAGING DESIGNER Verified by Ruperto Pepper on 07/15/2020. Patient Reported LABORATORY BREEZE PFT LABDE SCAN documented in this encounter Visit Diagnoses Not on filedocumented in this encounter Care Teams Desktop Support Specialist Relationship Specialty Start Date End Date Momo Forbes MD PCP - General Family Practice 01/02/14 Joseph Quintana MD 717 [facility] 353 [facility] [address] [place] [address] Assigned Nephrology Provider 03/29/21 09/10/22 Satish Gómez MD 717 [facility] 353 [place], [place] [address] Nephrology 10/07/23 Jane Francis MD [address] [place] [address] Nephrology 10/07/23 Jane Francis MD [address] [place] [address] Nephrology 01/30/24 documented as of this encounter
--- OUTSIDE RECORDS SUMMARY | 2024-03-15 12:59 | XMS_ITS | Encounter Summary ---
Author Organization [place] Address [address] [place] [address] Care Team Providers Care Deputy Sheriff Bailiff Name Role Phone Momo Forbes MD Primary Care Provider + [phone] Joseph Quintana MD Unavailable [phone] Satish Gómez MD Unavailable Jane Francis MD Unavailable [phone] Jane Francis MD Unavailable [phone] Encounter Details Date Type Department Care Team (Late st Contact Info) Description 08/31/2022 External Order Results [facility] [address] [place] [address] Outside, Provider Social History Tobacco Use Types [...] 05/31/2024 3:05 PM CDT Office Visit [facility] [address] [place] [address] Satish Gómez MD 717 [facility] [address] [address] Jane Francis MD [address] [place] [address] documented as of this encounter Procedures Procedure Name Priority Date/Time Associated Diagnosis Comments BASIC METABOLIC PANEL Routine 09/07/2022 10:58 AM V BELT CURER TACROLIMUS BY TANDEM MASS SPECTROMETRY Routine 08/31/2022 11:20 AM V BELT CURER BASIC METABOLIC PANEL Routine 08/31/2022 11:20 AM V BELT CURER documented in this encounter Results * (ABNORMAL) Basic metabolic panel (09/07/2022 10:58 AM V BELT CURER) Potassium (External) 3.1(L) 3.6 - 5.2 mmol/L [...] BLOOD SPECIMEN / Unknown 09/07/2022 10:58 AM V BELT CURER Narrative MARLENEE PFT - 09/10/2022 1:01 PM V BELT CURER Verified by Priscilla Mcdaniel on 09/10/2022. Provider Outside LAB - BLOOD ORDERABL ES BREEZE PFT NON-INTERFACED (ONBASE SCANS) * Tacrolimus by Tandem Mass Spectrometry (08/31/2022 11:20 AM V BELT CURER) Pathologist [facility] Tacrolimus(FK-5 06) (External) 6.7 5.0 - 15.0 ng/mL NON-INTERFACED (ONBASE SCANS) Blood 08/31/2022 11:2 0 AM V BELT CURER Narrative ZACHERYEZE PFT - 09/02/2022 12:37 PM V BELT CURER Verified by Yudi Ruano on 09/02/2022. Qaismdylan Jade LAB - BLOOD ORDERABL Performing Organization Address [facility] Co de Phone Number BREEZE PFT NON-INTERFACED (ONBASE SCANS) * (ABNORMAL) Basic metabolic panel (08/31/2022 11:20 AM V BELT CURER) [facility] Potassium (External) 3.4(L) 3.6 - 5.2 mmol/L [...] BLOOD SPECIMEN / Unknown 08/31/2022 11:20 AM V BELT CURER Narrative JESSICA PFT - 09/02/2022 12:37 PM V BELT CURER Verified by Yudi Ruano on 09/02/2022. Qasim Jade LAB - BLOOD ORDERABL ES JESSICA PFT NON-INTERFACED (ONBASE SCANS) documented in this encounter Visit Diagnoses Not on filedocumented in this encounter Care Teams Deputy Sheriff Bailiff Relationship Specialty Start Date End Date Momo Forbes MD PCP - General Family Practice 01/02/14 Joseph Quintana MD [address] [place] [address] [address] [place] [address] Assigned Nephrology Provider 03/29/21 09/10/22 Satish Gómez MD [address] [place] [address] Nephrology 10/07/23 Jane Francis MD 500 [place] [address] Nephrology 10/07/23 Jane Francis MD [address] [place] [address] Nephrology 01/30/24 documented as of this encounter
--- OUTSIDE RECORDS SUMMARY | 2024-03-15 12:59 | XMS_ITS | Encounter Summary ---
Author Organization [facility] Address [address] [place] [address] Care Team Providers Care Glass Cut Off Tender Name Role Phone Momo Forbes MD Primary Care Provider + [phone] Joseph Quintana MD Unavailable [phone] Satish Gómez MD Unavailable Jane Francis MD Unavailable [phone] Jane Francis MD Unavailable [phone] Encounter Details Date Type Department Care Team (Late st Contact Info) Description 12/09/2021 External Order Results [facility] [address] [place] [address] Outside, Provider Social History Tobacco Use Types [...] Description 05/31/2024 3:05 PM CDT Office Visit [facility] [address] [place] [address] Satish Gómez MD 717 [facility] [address] [address] Jane Francis MD [address] [place] [address] documented as of this encounter Procedures Procedure [...] SCANS) Blood 12/09/2021 11:5 0 AM CDT Yohana LOPEZ PFT - 12/15/2021 3:20 PM CDT Verified by Ruperto Pepper on 12/15/2021. Provider Outside LAB - BLOOD ORDERABL ES JESSICA PFT NON-INTERFACED (ONBASE SCANS) * Tacrolimus by Tandem Mass Spectrometry (12/09/2021 11:50 AM CDT) Tacrolimus(FK-5 06) (External) 4.5 See scan ng/mL NON-INTERFACED (ONBASE SCANS) Blood 12/09/2021 11:5 0 AM CDT Narrative BREEZE PFT - 12/11/2021 4:45 PM CDT Verified by Cassie Florian on 12/11/2021. Orlando Richey MD LAB - BLOOD ORDERABL ES Performing Organization Address [facility] de Phone Number ZACHERYEZE PFT NON-INTERFACED (ONBASE [...] Richey MD LAB - URINE ORDERABL ES Performing Organization Address [facility] Co de Phone Number ZACHERYEZE PFT NON-INTERFACED [...] Blood 12/09/2021 11:5 0 AM CDT Narrative JESSICA PFT - 12/10/2021 9:23 AM CDT Verified by Cassie Florian on 12/10/2021. Orlando Richey MD LAB - BLOOD ORDERABL ES JESSICA PFT NON-INTERFACED (ONBASE SCANS) documented in this encounter Visit Diagnoses Not on filedocumented in this encounter Care Teams Glass Cut Off Tender Relationship Specialty Start Date End Date Momo Forbes MD PCP - General Family Practice 01/02/14 Joseph Quintana MD 7 [facility] 353 [facility] [address] [place], [place] [address] Assigned Nephrology Provider 03/29/21 09/10/22 Satish Gómez MD [address] [place] [id number] Nephrology 10/07/23 Jane Francis MD [address] [place], [place] [address] Nephrology 10/07/23 Jane Francis MD [address] [place] [address] Nephrology 01/30/24 documented as of this encounter
--- OUTSIDE RECORDS SUMMARY | 2024-03-15 12:59 | XMS_ITS | Encounter Summary ---
Author Organization [facility] Address [address] [place] [address] Care Team Providers Care Firer Watertender Name Role Phone Momo Forbes MD Primary Care Provider + [phone] Joseph Quintana MD Unavailable [phone] Satish Gómez MD Unavailable Jane Francis MD Unavailable [phone] Jane Francis MD Unavailable [phone] Encounter Details Date Type Department Care Team (Late st Contact Info) Description 01/19/2022 External Order Results [facility] [address] [place] [address] Outside, Provider Social History Tobacco Use Types [...] Description 05/31/2024 3:05 PM CDT Office Visit [facility] [address] [place] [address] Satish Gómez MD 717 [facility] [address] [address] Jane Francis MD [address] [place] [address] documented as of this encounter Procedures Procedure [...] (ONBASE SCANS) 01/19/2022 12:1 1 PM CDT Narrative JESSICA PFT - 01/25/2022 2:48 PM CDT Verified by Priscilla Mcdaniel on 01/25/2022. Provider Outside LABORATORY MARLENEBea PFT NON-INTERFACED (ONBASE SCANS) * (ABNORMAL) Protein random urine (01/19/2022 11:55 AM CDT) Protein Random Urine (External) 176 mg/dL NON-INTERFACE D (ONBASE SCANS) Creatinine Urine mg/dL (External) 66 mg/dL NON-INTERFACE D (ONBASE SCANS) Protein Total Ur per Cr (External) 2.66(H) 0 - 0.19 Ratio NON-INTERFACE D (ONBASE SCANS) Urine 01/19/2022 11:5 5 AM CDT Narrative MARLENEE PFT - 01/21/2022 8:22 AM CDT Verified by Priscilla Mcdaniel on 01/21/2022. Provider Outside LAB - URINE ORDERABL ES Performing Organization Address [facility] Co de Phone Number JESSICA PFT [...] Blood 01/19/2022 11:5 5 AM CDT Narrative BREEZE PFT - 01/21/2022 8:19 AM CDT Verified by Yudi Ruano on 01/21/2022. Provider Outside LAB - BLOOD ORDERABL Performing Organization Address [facility] Co de Phone Number JESSICA PFT [...] NEG NEGATIVE NON-INTERFAC ED (ONBASE SCANS) Specific Sherrill Urine (External) 1.010 1.005 - 1.030 NON-INTERFAC [...] Urine 01/19/2022 11:1 6 AM CDT Narrative ZACHERYEZE PFT - 01/21/2022 8:14 AM CDT Verified by Ruperto Pepper on 01/21/2022. Provider Outside LAB - URINE ORDERABL ES BRETYLER PFT NON-INTERFACED (ONBASE SCANS) documented in this encounter Visit Diagnoses Not on filedocumented in this encounter Care Teams Firer Watertender Relationship Specialty Start Date End Date Momo Forbes MD PCP - General Family Practice 01/02/14 Joseph Quintana MD 717 [facility] 353 [facility] [address] [place] [address] Assigned Nephrology Provider 03/29/21 09/10/22 Satish Gómez MD [address] [id number] Nephrology 10/07/23 Jane Francis MD [address] [place], [place] [address] Nephrology 10/07/23 Jane Francis MD [address] [place] [address] Nephrology 01/30/24 documented as of this encounter
--- OUTSIDE RECORDS SUMMARY | 2024-03-15 12:59 | XMS_ITS | Encounter Summary ---
Author Organization [facility] Address [address] [place] [address] Care Team Providers Care Underwear Finisher Name Role Phone Momo Forbes MD Primary Care Provider + [phone] Joseph Quintana MD Unavailable [phone] Satish Gómez MD Unavailable Jane Francis MD Unavailable [phone] Jane Francis MD Unavailable [phone] Encounter Details Date Type Department Care Team (Late st Contact Info) Description 09/07/2022 External Order Results [facility] [address] [place] [address] Outside, Provider Social History Tobacco Use Types [...] Description 05/31/2024 3:05 PM CDT Office Visit [facility] [address] [place] [address] Satish Gómez MD 717 [facility] [address] [address] Jane Francis MD [address] [place] [address] documented as of this encounter Procedures Procedure Name Priority Date/Time Associated Diagnosis Comments CBC WITH PLATELETS & DIFFERENTIAL Routine 09/07/2022 10:58 AM TRANSMISSION DESIGN ENGINEER TACROLIMUS BY TANDEM MASS SPECTROMETRY Routine 09/07/2022 10:58 AM TRANSMISSION DESIGN ENGINEER MAGNESIUM Routine 09/07/2022 10:58 AM TRANSMISSION DESIGN ENGINEER documented in this encounter Results * (ABNORMAL) CBC with Platelets & Differential (09/07/2022 10:58 AM TRANSMISSION DESIGN ENGINEER) Hemoglobin (External) 11.1(L) 13.2 - 16.6 g/dL [...] BLOOD SPECIMEN / Unknown 09/07/2022 10:58 AM TRANSMISSION DESIGN ENGINEER Narrative BREEZE PFT - 09/10/2022 1:04 PM TRANSMISSION DESIGN ENGINEER Verified by Yudi Ruano on 09/10/2022. Provider Outside LAB - BLOOD ORDERABL ES BREEZE PFT [facility] [address] [place] [address] * Tacrolimus by Tandem Mass Spectrometry (09/07/2022 10:58 AM TRANSMISSION DESIGN ENGINEER) Tacrolimus(FK-5 06) (External) 5.2 5.0 - 15.0 ng/ml NON-INTERFACED (ONBASE SCANS) Blood 09/07/2022 10:5 8 AM TRANSMISSION DESIGN ENGINEER Narrative BREEZE PFT - 09/10/2022 12:55 PM TRANSMISSION DESIGN ENGINEER Verified by Andrade Barajas on 09/10/2022. Provider Outside LAB - BLOOD ORDERABL ES BREEZE PFT NON-INTERFACED (ONBASE SCANS) * (ABNORMAL) Magnesium (09/07/2022 10:58 AM TRANSMISSION DESIGN ENGINEER) Magnesium (External) 1.5(L) 1.7 - 2.3 mg/dl NON-INTERFACED (ONBASE SCANS) Blood BLOOD SPECIMEN / Unknown 09/07/2022 10:58 AM TRANSMISSION DESIGN ENGINEER Narrative BREEZE PFT - 09/10/2022 12:55 PM TRANSMISSION DESIGN ENGINEER Verified by Andrade Barajas on 09/10/2022. Provider Outside LAB - BLOOD ORDERABL ES BREEZE PFT NON-INTERFACED (ONBASE SCANS) documented in this encounter Visit Diagnoses Not on filedocumented in this encounter Care Teams Underwear Finisher Relationship Specialty Start Date End Date Momo Forbes MD PCP - General Family Practice 01/02/14 Joseph Quintana MD 717 [facility] [address] [facility] [address] [place] [address] Assigned Nephrology Provider 03/29/21 09/10/22 Satish Gómez MD 717 [facility] 353 [place] [address] Nephrology 10/07/23 Jane Francis MD [address] [place], [place] [address] Nephrology 10/07/23 Jane Francis MD [address] [place], [place] [address] Nephrology 01/30/24 documented as of this encounter
--- OUTSIDE RECORDS SUMMARY | 2024-03-15 12:59 | XMS_ITS | Encounter Summary ---
Author Organization [facility] Address [address] [place] [address] Care Team Providers Care Canteen Manager Name Role Phone Momo Forbes MD Primary Care Provider + [phone] Joseph Quintana MD Unavailable [phone] Satish Gómez MD Unavailable Jane Francis MD Unavailable [phone] Jane Francis MD Unavailable [phone] Encounter Details Date Type Department Care Team (Late st Contact Info) Description 04/29/2022 External Order Results [facility] [address] [place] [address] Outside, Provider Social History Tobacco Use Types [...] Description 05/31/2024 3:05 PM CDT Office Visit [facility] [address] [place] [address] Satish Gómez MD 717 [facility] [address] [address] Jane Francis MD [address] [place] [address] documented as of this encounter Procedures Procedure [...] Blood 04/29/2022 11:4 0 AM CDT Yohana LOPEZ PFT - 05/03/2022 12:33 PM CDT Verified by Praful Huff on 05/03/2022. Provider Outside LAB - BLOOD ORDERABL ES JESSICA PFT NON-INTERFACED (ONBASE SCANS) * (ABNORMAL) Protein random urine (04/29/2022 11:40 AM CDT) Creatinine Urine mg/dL (External) 79.5 mg/dL NON-INTERFACE D (ONBASE SCANS) Protein Random Urine (External) 199 mg/dL NON-INTERFACE D (ONBASE SCANS) Protein Total Ur per Cr (External) 2.50(H) 0 - 0.19 NON-INTERFACE D (ONBASE SCANS) Urine 04/29/2022 11:4 0 AM CDT Narrative BREEZE PFT - 04/30/2022 12:29 PM CDT Verified by Andrade Barajas on 04/30/2022. Provider Outside LAB - URINE ORDERABL ES JESSICA PFKofi NON-INTERFACED (ONBASE SCANS) * (ABNORMAL) CBC with [...] Blood 04/29/2022 11:4 0 AM CDT Narrative ZACHERYEZE PFT - 04/30/2022 12:29 PM CDT Verified by Andrade Barajas on 04/30/2022. Provider Outside LAB - BLOOD ORDERABL ES JESSICA PFKofi NON-INTERFACED (ONBASE SCANS) * (ABNORMAL) Basic metabolic [...] Blood 04/29/2022 11:4 0 AM CDT Narrative MARLENEE PFT - 04/30/2022 12:29 PM CDT Verified by Andrade Barajas on 04/30/2022. Provider Outside LAB - BLOOD ORDERABL ES JESSICA PFT NON-INTERFACED (ONBASE SCANS) documented in this encounter Visit Diagnoses Not on filedocumented in this encounter Care Teams Canteen Manager Relationship Specialty Start Date End Date Momo Forbes MD PCP - General Family Practice 01/02/14 Joseph Quintana MD [address] [facility] 353 [facility] [address] [place], [place] [address] Assigned Nephrology Provider 03/29/21 09/10/22 Satish Gómez MD [address] [facility] [address] [address] Nephrology 10/07/23 Jane Francis MD [address] [place], [place] [address] Nephrology 10/07/23 Jane Francis MD [address] [place] [address] Nephrology 01/30/24 documented as of this encounter
--- OUTSIDE RECORDS SUMMARY | 2024-03-15 12:59 | XMS_ITS | Encounter Summary ---
Author Organization [facility] [facility] Address [address] [place] [address] Care Team Providers Care Grape Picker Name Role Phone Momo Forbes MD Primary Care Provider + [phone] Joseph Quintana MD Unavailable [phone] Satish Gómez MD Unavailable Jane Francis MD Unavailable [phone] Jane Francis MD Unavailable [phone] Encounter Details Date Type Department Care Team (Late st Contact Info) Description 02/02/2021 External Order Results [facility] [address] [place] [address] Outside, Provider Social History Tobacco Use [...] Description 05/31/2024 3:05 PM CDT Office Visit [facility] [address] [place] [address] Satish Gómez MD [address] [place] [address] Jane Francis MD [address] [place] [address] documented as of this encounter Procedures Procedure [...] by Cassie Florian on 02/04/2021. Performed by: [address] ??[id number] Patient Reported LABORATORY JESSICA PFKofi COVID-19 EXTERNAL RESULTS COVID-19 External Result Scanned into Patient Record by [employer] Refer to Result Comment/Narrative for exact performing laboratory [address] documented in this encounter Visit Diagnoses Not on filedocumented in this encounter Care Teams Grape Picker Relationship Specialty Start Date End Date Momo Forbes MD PCP - General Family Practice 01/02/14 Joseph Quintana MD [address] [place] [address] 353 [facility] [address] [place] [address] Assigned Nephrology Provider 03/29/21 09/10/22 Satish Gómez MD 717 [facility] 353 [place] [address] Nephrology 10/07/23 Jane Francis MD 500 [place] [address] Nephrology 10/07/23 Jane Francis MD [address] [place] [address] Nephrology 01/30/24 documented as of this encounter
--- OUTSIDE RECORDS SUMMARY | 2024-03-15 12:59 | XMS_ITS | Encounter Summary ---
Author Organization [facility] Address [address] [place] [address] Care Team Providers Care Airport Refueling Handler Name Role Phone Momo Forbes MD Primary Care Provider + [phone] Joseph Quintana MD Unavailable [phone] Satish Gómez MD Unavailable Jane Francis MD Unavailable [phone] Jane Francis MD Unavailable [phone] Encounter Details Date Type Department Care Team (Late st Contact Info) Description 08/08/2020 External Order Results [facility] [address] [place] [address] Outside, Provider Social History Tobacco Use [...] Description 05/31/2024 3:05 PM CDT Office Visit [facility] [address] [place] [phone] Satish Gómez MD [address] [place] [address] Jane Francis MD [address] [place] [address] documented as of this encounter Procedures Procedure Name Priority Date/Time Associated Diagnosis Comments HEMOGLOBIN A1C Routine 08/08/2020 11:43 AM COOK RESTAURANT TACROLIMUS BY TANDEM MASS SPECTROMETRY Routine 08/08/2020 11:34 AM COOK RESTAURANT LIPID PROFILE Routine 08/08/2020 11:34 AM COOK RESTAURANT ALT Routine 08/08/2020 11:34 AM COOK RESTAURANT BASIC METABOLIC PANEL Routine 08/08/2020 11:34 AM COOK RESTAURANT documented in this encounter Results * (ABNORMAL) Hemoglobin A1c (08/08/2020 11:43 AM COOK RESTAURANT) Hemoglobin A1C (External) 10.2(H) <=6.9 % LABDE SCAN Blood specimen (specimen) 08/08/2020 11:43 AM COOK RESTAURANT Narrative BREEZE PFT - 08/11/2020 1:28 PM COOK RESTAURANT Verified by Praful Huff on 08/11/2020. Patient Reported LAB - BLOOD ORDERABL ES BREEZE PFT LABDE SCAN * Tacrolimus level (08/08/2020 11:34 AM COOK RESTAURANT) Tacrolimus(FK-5 06) (External) 11.7 See scan ng/mL LABDE SCAN Blood specimen (specimen) 08/08/2020 11:34 AM COOK RESTAURANT Narrative BREEZE PFT - 08/11/2020 1:28 PM COOK RESTAURANT Verified by Praful Huff on 08/11/2020. Patient Reported LAB - BLOOD ORDERABL ES BREEZE PFT LABDE SCAN * (ABNORMAL) Lipid Profile (08/08/2020 11:34 AM COOK RESTAURANT) Cholesterol (External) 79(L) 90 - 200 MG/DL LABDE SCAN Triglycerides (External) 86 40 - 197 MG/DL LABDE SCAN LDL-Cholesterol (External) 29 <100 mg/dL LABDE SCAN HDL Cholesterol (External) 33(L) >=40 mg/dL LABDE SCAN Blood specimen (specimen) 08/08/2020 11:34 AM COOK RESTAURANT Narrative BREEZE PFT - 08/11/2020 1:28 PM COOK RESTAURANT Verified by Praful Huff on 08/11/2020. Patient Reported LAB - BLOOD ORDERABL ES BREEZE PFT LABDE SCAN * ALT (08/08/2020 11:34 AM COOK RESTAURANT) Pathologist [facility] ALT (External) 8 4 - 50 U/L LABDE SCAN Blood specimen (specimen) 08/08/2020 11:34 AM COOK RESTAURANT Narrative BREEZE PFT - 08/11/2020 1:28 PM COOK RESTAURANT Verified by Praful Huff on 08/11/2020. Patient Reported LAB - BLOOD ORDERABL ES BREEZE PFT LABDE SCAN * (ABNORMAL) Basic metabolic panel (08/08/2020 11:34 AM COOK RESTAURANT) Glucose (External) 119(H) 60 - 115 mg/dL [...] SCAN Blood specimen (specimen) 08/08/2020 11:34 AM COOK RESTAURANT Narrative JESSICA PFT - 08/11/2020 1:28 PM COOK RESTAURANT Verified by Praful Huff on 08/11/2020. Patient Reported LAB - BLOOD ORDERABL ES BRETYLER PFT LABDE SCAN documented in this encounter Visit Diagnoses Not on filedocumented in this encounter Care Teams Airport Refueling Handler Relationship Specialty Start Date End Date Momo Forbes MD PCP - General Family Practice 01/02/14 Joseph Quintana MD [address] [place] [address] [address] [place] [address] Assigned Nephrology Provider 03/29/21 09/10/22 Satish Gómez MD [address] [place] [address] Nephrology 10/07/23 Jane Francis MD [address] [place] [address] Nephrology 10/07/23 Jane Francis MD [address] [place] [address] Nephrology 01/30/24 documented as of this encounter
--- OUTSIDE RECORDS SUMMARY | 2024-03-15 12:59 | XMS_ITS | Encounter Summary ---
Author Organization [place] Address [address] [place] [address] Care Team Providers Care Department Store Door Greeter Name Role Phone Momo Forbes MD Primary Care Provider + [phone] Joseph Quintana MD Unavailable [phone] Satish Gómez MD Unavailable Jane Francis MD Unavailable [phone] Jane Francis MD Unavailable [phone] Encounter Details Date Type Department Care Team (Late st Contact Info) Description 05/26/2020 External Order Results [facility] [address] [place] [address] Outside, Provider Social History Tobacco Use [...] Description 05/31/2024 3:05 PM CDT Office Visit [facility] [address] [place] [phone] Satish Gómez MD [address] [place] [address] Jane Francis MD [address] [place] [address] documented as of this encounter Procedures Procedure [...] specimen (specimen) 05/26/2020 10:25 AM CDT Narrative MARLENEE PFT - 05/29/2020 4:03 PM CDT Verified [...] on filedocumented in this encounter Care Teams Department Store Door Greeter Relationship Specialty Start Date End Date Momo Forbes MD PCP - General Family Practice 01/02/14 Joseph Quintana MD 717 [facility] 353 [facility] [address] [place], [place] [address] Assigned Nephrology Provider 03/29/21 09/10/22 Satish Gómez MD [address] [address] Nephrology 10/07/23 Jane Francis MD [address] [place], [place] [address] Nephrology 10/07/23 Jane Francis MD [address] [place] [address] Nephrology 01/30/24 documented as of this encounter
--- OUTSIDE RECORDS SUMMARY | 2024-03-15 12:59 | XMS_ITS | Encounter Summary ---
Author Organization [place] Address [address] [place] [address] Care Team Providers Care Wedding Coordinator Name Role Phone Momo Forbes MD Primary Care Provider + [phone] Joseph Quintana MD Unavailable [phone] Satish Gómez MD Unavailable Jane Francis MD Unavailable [phone] Jane Francis MD Unavailable [phone] Encounter Details Date Type Department Care Team (Late st Contact Info) Description 07/08/[address] [facility] [address] [place] [phone] Outside, Provider Social History Tobacco Use [...] 05/31/2024 3:05 PM CDT Office Visit [facility] [address] [place] [phone] Satish Gómez MD [address] [place] [address] Jane Francis MD [address] [place] [address] documented as of this encounter Procedures Procedure Name Priority Date/Time Associated Diagnosis Comments CBC WITH PLATELETS & DIFFERENTIAL Routine 07/08/2020 9:23 AM PROJECT ACCOUNTANT TACROLIMUS BY TANDEM MASS SPECTROMETRY Routine 07/08/2020 9:23 AM PROJECT ACCOUNTANT PROTEIN RANDOM URINE Routine 07/08/2020 9:23 AM PROJECT ACCOUNTANT HEMOGLOBIN A1C Routine 07/08/2020 9:23 AM PROJECT ACCOUNTANT HEMOGLOBIN A1C Routine 07/08/2020 9:23 AM PROJECT ACCOUNTANT BASIC METABOLIC PANEL Routine 07/08/2020 9:23 AM PROJECT ACCOUNTANT documented in this encounter Results * (ABNORMAL) Protein random urine with Creat Ratio (07/08/2020 9:23 AM PROJECT ACCOUNTANT) Protein Random Urine (External) 73 mg/dL LABDE SCAN Creatinine Urine mg/dL (External) 65 mg/dL LABDE SCAN Protein Total Ur per Cr (External) 1.12(H) 0 - 0.19 LABDE SCAN Urine specimen (specimen) 07/08/2020 9:23 AM PROJECT ACCOUNTANT Yohana THIBODEAUX - 07/11/2020 11:13 AM PROJECT ACCOUNTANT Verified by Praful Huff on 07/11/2020. Patient Reported LAB - URINE ORDERABL ES JESSICA PFT LABDE SCAN * (ABNORMAL) Hemoglobin A1c (07/08/2020 9:23 AM PROJECT ACCOUNTANT) Hemoglobin A1C (External) 12.3(H) 0 - 5.6 % LABDE SCAN Blood specimen (specimen) 07/08/2020 9:23 AM PROJECT ACCOUNTANT Narrative BREEZE PFT - 07/11/2020 11:13 AM PROJECT ACCOUNTANT Verified by Praful Huff on 07/11/2020. Patient Reported LAB - BLOOD ORDERABL ES Performing Organization Address City/[facility]/ZIP Co de Phone Number BREEZE PFT LABDE SCAN * Tacrolimus level (07/08/2020 9:23 AM PROJECT ACCOUNTANT) Tacrolimus(FK- 506) (External) 2.2 See scanned report ng/mL LABDE SCAN Blood specimen (specimen) 07/08/2020 9:23 AM PROJECT ACCOUNTANT Narrative BREEZE PFT - 07/11/2020 11:13 AM PROJECT ACCOUNTANT Verified by Praful Huff on 07/11/2020. Patient Reported LAB - BLOOD ORDERABL ES Performing Organization Address [facility] de Phone Number BREEZE PFT LABDE SCAN * (ABNORMAL) Hemoglobin A1c (07/08/2020 9:23 AM PROJECT ACCOUNTANT) Hemoglobin A1C (External) 12.3(H) 0 - 5.6 % LABDE SCAN Blood specimen (specimen) 07/08/2020 9:23 AM PROJECT ACCOUNTANT Narrative BREEZE PFT - 07/09/2020 11:03 AM PROJECT ACCOUNTANT Verified by Andrade Barajas on 07/09/2020. Patient Reported LAB - BLOOD ORDERABL ES Performing Organization Address [facility] Co de Phone Number BREEZE PFT LABDE SCAN * (ABNORMAL) Basic metabolic panel (07/08/2020 9:23 AM PROJECT ACCOUNTANT) Calcium (External) 10.1 8.4 - 10.6 mg/dL [...] SCAN Blood specimen (specimen) 07/08/2020 9:23 AM PROJECT ACCOUNTANT Narrative JESSICA PFT - 07/09/2020 11:02 AM PROJECT ACCOUNTANT Verified by Andrade Barajas on 07/09/2020. Patient Reported LAB - BLOOD ORDERABL ES JESSICA PFT LABDE SCAN * (ABNORMAL) CBC with platelets differential (07/08/2020 9:23 AM PROJECT ACCOUNTANT) WBC Count (External) 4.32(L) 5.00 - 10.00 [...] SCAN Blood specimen (specimen) 07/08/2020 9:23 AM PROJECT ACCOUNTANT Narrative JESSICA PFT - 07/09/2020 10:52 AM PROJECT ACCOUNTANT Verified by Praful Huff on 07/09/2020. Patient Reported LAB - BLOOD ORDERABL ES BRETYLER PFT LABDE SCAN documented in this encounter Visit Diagnoses Not on filedocumented in this encounter Care Teams Wedding Coordinator Relationship Specialty Start Date End Date Momo Forbes MD PCP - General Family Practice 01/02/14 Joseph Quintana MD [address] [place] [address] [address] [place] [address] Assigned Nephrology Provider 03/29/21 09/10/22 Satish Gómez MD [address] [place] [address] Nephrology 10/07/23 Jane Francis MD [address] [place] [address] Nephrology 10/07/23 Jane Francis MD [address] [place] [address] Nephrology 01/30/24 documented as of this encounter
--- OUTSIDE RECORDS SUMMARY | 2024-03-15 12:59 | XMS_ITS | Encounter Summary ---
Author Organization [facility] Address [address] [place] [address] Care Team Providers Care Childcare Aide Name Role Phone Momo Forbes MD Primary Care Provider + [phone] Joseph Quintana MD Unavailable [phone] Satish Gómez MD Unavailable Jane Francis MD Unavailable [phone] Jane Francis MD Unavailable [phone] Encounter Details Date Type Department Care Team (Late st Contact Info) Description 01/07/2021 External Order Results [facility] [address] [place] [phone] Outside, Provider Social History Tobacco Use [...] 3:05 PM CDT Office Visit [facility] [address] [place] [phone] Satish Gómez MD [address] [place] [address] Jane Francis MD [address] [place] [address] documented as of this encounter Procedures Procedure Name Priority Date/Time Associated Diagnosis Comments ALT Routine 01/07/2021 9:30 AM CDT BASIC METABOLIC PANEL Routine 01/07/2021 9:30 AM CDT documented in this encounter Results * ALT (01/07/2021 9:30 AM CDT) ALT (External) 10 4 - 50 U/L LABDE SCAN Blood 01/07/2021 9:30 AM CDT Narrative JESSICA [...] SCAN Blood 01/07/2021 9:30 AM CDT Narrative JESSICA [...] Quintana MD 717 [facility] 353 [facility] 1932 [place] [address] Assigned Nephrology Provider 03/29/21 09/10/22 Satish Gómez MD [address] [address] Nephrology 10/07/23 Jane Francis MD [address] [place] [address] Nephrology 10/07/23 Jane Francis MD [address] [place] [address] Nephrology 01/30/24 documented as of this encounter
--- OUTSIDE RECORDS SUMMARY | 2024-03-15 12:59 | XMS_ITS | Encounter Summary ---
Author Organization [place] Address [address] [place] [address] Care Team Providers Care Project Intern Name Role Phone Momo Forbes MD Primary Care Provider + [phone] Joseph Quintana MD Unavailable [phone] Satish Gómez MD Unavailable Jane Francis MD Unavailable [phone] Jane Francis MD Unavailable [phone] Encounter Details Date Type Department Care Team (Late st Contact Info) Description 04/30/2021 External Order Results [facility] [address] [place] [address] Outside, Provider Social History Tobacco Use Types [...] 05/31/2024 3:05 PM CDT Office Visit [facility] [address] [place] [address] Satish Gómez MD 717 [facility] [address] [address] Jane Francis MD [address] [place] [address] documented as of this encounter Procedures Procedure Name Priority Date/Time Associated Diagnosis Comments CBC WITH PLATELETS & DIFFERENTIAL Routine 04/30/2021 11:20 AM CDT TACROLIMUS BY TANDEM MASS SPECTROMETRY Routine 04/30/2021 11:20 AM CDT documented in this encounter Results * (ABNORMAL) Tacrolimus level (04/30/2021 11:20 AM CDT) Pathologist [facility] Tacrolimus(FK- [id number]) (External) 3.9(L) 5.0 - 15.0 ng/mL NON-INTERFACED (ONBASE SCANS) Blood 04/30/2021 11:2 0 AM CDT Narrative JESSICA PFT - 05/05/2021 10:14 AM CDT Verified by Andrade Barajas on 05/05/2021. Patient Reported LAB - BLOOD ORDERABL ES JESSICA PFT NON-INTERFACED (ONBASE SCANS) * (ABNORMAL) CBC with Platelets & Differential (04/30/2021 11:20 AM CDT) Pathologist [facility] WBC Count (External) 4.82(L) 5.00 - 10.00 [...] filedocumented in this encounter Care Teams Project Intern Relationship Specialty Start Date End Date Momo Forbes MD PCP - General Family Practice 01/02/14 Joseph Quintana MD [address] [place] [address] [address] [place] [address] Assigned Nephrology Provider 03/29/21 09/10/22 Satish Gómez MD [address] [place] [address] Nephrology 10/07/23 Jane Francis MD [address] [place], [place] [address] Nephrology 10/07/23 Jane Francis MD [address] [place], [place] [address] Nephrology 01/30/24 documented as of this encounter
--- OUTSIDE RECORDS SUMMARY | 2024-03-15 12:59 | XMS_ITS | Encounter Summary ---
Author Organization [place] Address [address] [place] [address] Care Team Providers Care Cook Soup Name Role Phone Momo Forbes MD Primary Care Provider [phone] Satish Gómez MD Unavailable Jane Francis MD Unavailable [phone] Jane Francis MD Unavailable [phone] Encounter Details Date Type Department Care Team (Late st Contact Info) Description 10/05/2022 External Order Results [facility] [address] [place] [address] Outside, Provider Social History Tobacco Use Types [...] Description 05/31/2024 3:05 PM CDT Office Visit [facility] [address] [place] [address] Satish Gómez MD [address] [address] Jane Francis MD [address] [place] [address] documented as of this encounter Procedures Procedure Name Priority Date/Time Associated Diagnosis Comments CBC WITH PLATELETS & DIFFERENTIAL Routine 10/05/2022 10:00 AM GRADUATE TEACHER EDUCATION TACROLIMUS BY TANDEM MASS SPECTROMETRY Routine 10/05/2022 10:00 AM GRADUATE TEACHER EDUCATION BASIC METABOLIC PANEL Routine 10/05/2022 10:00 AM GRADUATE TEACHER EDUCATION documented in this encounter Results * Tacrolimus by Tandem Mass Spectrometry (10/05/2022 10:00 AM GRADUATE TEACHER EDUCATION) Pathologist [facility] Tacrolimus([id number]) (External) 7.6 See scan ng/mL NON-INTERFACED (ONBASE SCANS) Blood 10/05/2022 10:0 0 AM GRADUATE TEACHER EDUCATION Narrative JESSICA PFT - 10/18/2022 3:21 PM GRADUATE TEACHER EDUCATION Verified by Cassie Florian on 10/18/2022. Provider Outside LAB - BLOOD ORDERABL ES JESSICA PFT NON-INTERFACED (ONBASE SCANS) * (ABNORMAL) CBC with Platelets & Differential (10/05/2022 10:00 AM GRADUATE TEACHER EDUCATION) [facility] WBC Count (External) 5.68 4.50 - 11.00 [...] BLOOD SPECIMEN / Unknown 10/05/2022 10:00 AM GRADUATE TEACHER EDUCATION Narrative JESSICA THIBODEAUX - 10/18/2022 3:21 PM GRADUATE TEACHER EDUCATION Verified by Cassie Florian on 10/18/2022. Provider Outside LAB - BLOOD ORDERABL ES ZACHERYTYLER Kofi NON-INTERFACED (ONBASE SCANS) * (ABNORMAL) Basic metabolic panel (10/05/2022 10:00 AM GRADUATE TEACHER EDUCATION) Sodium (External) 140 135 - 149 mmol/L [...] BLOOD SPECIMEN / Unknown 10/05/2022 10:00 AM GRADUATE TEACHER EDUCATION Narrative JESSICA PFT - 10/18/2022 3:21 PM GRADUATE TEACHER EDUCATION Verified by Cassie Florian on 10/18/2022. Provider Outside LAB - BLOOD ORDERABL ES JESSICA PFT NON-INTERFACED (ONBASE SCANS) documented in this encounter Visit Diagnoses Not on filedocumented in this encounter Care Teams Cook Soup Relationship Specialty Start Date End Date Momo Forbes MD PCP - General Family Practice 01/02/14 Satish Gómez MD [address] [id number] Nephrology 10/07/23 Jane Francis MD [address] [place], [place] [address] Nephrology 10/07/23 Jane Francis MD [address] [place], [place] [address] Nephrology 01/30/24 documented as of this encounter
--- OUTSIDE RECORDS SUMMARY | 2024-03-15 13:00 | XMS_ITS | Encounter Summary ---
Author Organization [place] Address formerly [facility] [place] [address] Care Team Providers Care Information Lead Name Role Phone Momo Forbes MD Primary Care Provider + [phone] Joseph Quintana MD Unavailable [phone] Satish Gómez MD Unavailable Jane Francis MD Unavailable [phone] Jane Francis MD Unavailable [phone] Encounter Details Date Type Department Care Team (Late st Contact Info) Description 08/18/2016 External Order Results [facility] [address] [place] [address] Nurse, [facility] Social History Tobacco Use Types Packs/Day [...] Description 05/31/2024 3:05 PM CDT Office Visit [facility] [address] [place] [address] Satish Gómez MD [address] [place] [address] 48[address] Jane Francis MD [address] [place] [address] documented as of this encounter Procedures Procedure Name Priority Date/Time Associated Diagnosis Comments EXTERNAL LAB RESULTS Routine 08/09/2016 12:21 PM ROCKET SCIENTIST documented in this encounter Results * (ABNORMAL) TXP External Lab Result (08/09/2016 12:21 PM ROCKET SCIENTIST) Sodium (External) 140 135 - 145 LABDE [...] <=6.4 LABDE SCAN 08/09/2016 12:2 1 PM ROCKET SCIENTIST Narrative JESSICA PFT - 08/18/2016 1:35 PM ROCKET SCIENTIST Verified by Jessica Major on 08/18/2016. Patient Reported LABORATORY BREEZE PFT LABDE SCAN documented in this encounter Visit Diagnoses Not on filedocumented in this encounter Care Teams Information Lead Relationship Specialty Start Date End Date Momo Forbes MD PCP - General Family Practice 01/02/14 Joseph Quintana MD 717 [facility] 353 [facility] [address] [place] [address] Assigned Nephrology Provider 03/29/21 09/10/22 Satish Gómez MD [address] [place] [address] [address] Nephrology 10/07/23 Jane Francis MD [address] [place] [address] Nephrology 10/07/23 Jane Francis MD [address] [place], [place] [address] Nephrology 01/30/24 documented as of this encounter
--- OUTSIDE RECORDS SUMMARY | 2024-03-15 13:00 | XMS_ITS | Encounter Summary ---
Author Organization [place] Address [address] [place] [address] Care Team Providers Care Supervisor Forming And Tempering Name Role Phone Ingrid Santana RN Unavailable Unavailable Momo Forbes MD Primary Care Provider Joseph Quintana MD Unavailable [phone] Satish Gómez MD Unavailable Jane Francis MD Unavailable [phone] Jane Francis MD Unavailable [phone] Encounter Details Date Type Department Care Team (Late st Contact Info) Description 08/06/2014 External Order Results [facility] [address] [place] [address] Nurse, [facility] Social History Tobacco Use Types [...] PM CDT Office Visit [facility] [address] [facility] [place] [address] Satish Gómez MD 717 [facility] [address] [address] Jane Francis MD [address] [place], [place] [address] documented as of this encounter Procedures Procedure Name Priority Date/Time Associated Diagnosis Comments EXTERNAL LAB RESULTS Routine 08/05/2014 8:39 AM LITHARGE SUPERVISOR documented in this encounter Results * (ABNORMAL) TXP External Lab Result (08/05/2014 8:39 AM LITHARGE SUPERVISOR) Sodium (External) 137 135 - 145 [...] 11.0 fL LABDE SCAN 08/05/2014 8:39 AM LITHARGE SUPERVISOR Narrative JESSICA PFT - 08/06/2014 7:40 AM LITHARGE SUPERVISOR Verified by Mary Whitehead on 08/06/2014. Patient Reported LABORATORY BREEZBea PFT LABDE SCAN documented in this encounter Visit Diagnoses Not on filedocumented in this encounter Care Teams Supervisor Forming And Tempering Relationship Specialty Start Date End Date Momo Forbes MD PCP - General Family Practice 01/02/14 Ingrid Santana, RN Registered Nurse Transplant 02/10/12 10/01/15 Joseph Quintana MD 717 [facility] [address] [facility] [address] [place] [address] Assigned Nephrology Provider 03/29/21 09/10/22 Satish Gómez MD 717 [facility] [address] [place] [address] Nephrology 10/07/23 Jane Francis MD [address] [place] [address] Nephrology 10/07/23 Jane Francis MD [address] [place] [address] Nephrology 01/30/24 documented as of this encounter
--- OUTSIDE RECORDS SUMMARY | 2024-03-15 13:00 | XMS_ITS | Encounter Summary ---
Author Organization [place] Address [facility] [place] [address] Care Team Providers Care Pilot Submersible Name Role Phone Momo Forbes MD Primary Care Provider + [phone] Joseph Quintana MD Unavailable [phone] Satish Gómez MD Unavailable Jane Francis MD Unavailable [phone] Jane Francis MD Unavailable [phone] Encounter Details Date Type Department Care Team (Late st Contact Info) Description 05/03/[address] [facility] [address] [place] [address] Nurse, [facility] Social History Tobacco Use Types Packs/Day [...] 05/31/2024 3:05 PM CDT Office Visit [facility] [address] [place] [address] Satish Gómez MD [address] [place] [address] [address] Jane Francis MD [address] [place], [place] [address] documented as of this encounter Procedures Procedure [...] Submersible Relationship Specialty Start Date End Date Momo Forbes MD PCP - General Family Practice 01/02/14 Joseph Quintana MD [address] [place] [address] [address] [place], [place] [address] Assigned Nephrology Provider 03/29/21 09/10/22 Satish Gómez MD [address] [place] [address] Nephrology 10/07/23 Jane Francis MD [address] [place] [address] Nephrology 10/07/23 Jane Francis MD [address] [place] [address] Nephrology 01/30/24 documented as of this encounter
--- OUTSIDE RECORDS SUMMARY | 2024-03-15 13:00 | XMS_ITS | Encounter Summary ---
Author Organization [place] Address [address] [place] [address] Care Team Providers Care Table Hand Name Role Phone Ingrid Santana RN Unavailable Unavailable Momo Forbes MD Primary Care Provider Joseph Quintana MD Unavailable [phone] Satish Gómez MD Unavailable Jane Francis MD Unavailable [phone] Jane Francis MD Unavailable [phone] Encounter Details Date Type Department Care Team (Late st Contact Info) Description 07/31/2014 External Order Results [facility] [address] [place] [address] Nurse, [facility] Social History Tobacco Use Types Packs/Day [...] Visit [facility] 909 [facility] [place] [address] Satish Gómez MD 717 [facility] [address] [address] Jane Francis MD [address] [place], [place] [address] documented as of this encounter Procedures Procedure Name Priority Date/Time Associated Diagnosis Comments EXTERNAL LAB RESULTS Routine 07/29/2014 8:25 AM SUPERVISOR COMPRESSED YEAST documented in this encounter Results * (ABNORMAL) TXP External Lab Result (07/29/2014 8:25 AM SUPERVISOR COMPRESSED YEAST) Sodium (External) 138 135 - 145 mmol/L [...] >40 mg/dL LABDE SCAN 07/29/2014 8:25 AM SUPERVISOR COMPRESSED YEAST Narrative JESSICA PFT - 07/31/2014 2:47 PM SUPERVISOR COMPRESSED YEAST Verified by Nazia Duncan on 07/31/2014. Verified by Freddy Mehta on 07/31/2014. Patient Reported LABORATORY JESSICA PFT LABDE SCAN documented in this encounter Visit Diagnoses Not on filedocumented in this encounter Care Teams Table Hand Relationship Specialty Start Date End Date Momo Forbes MD PCP - General Family Practice 01/02/14 Ingrid Santana, RN Registered Nurse Transplant 02/10/12 10/01/15 Joseph Quintana MD 717 [facility] 353 [facility] [address] [place], [place] [address] Assigned Nephrology Provider 03/29/21 09/10/22 Satish Gómez MD [address] [address] Nephrology 10/07/23 Jane Francis MD [address] [place], [place] [address] Nephrology 10/07/23 Jane Francis MD [address] [place], [place] [address] Nephrology 01/30/24 documented as of this encounter
--- OUTSIDE RECORDS SUMMARY | 2024-03-15 13:00 | XMS_ITS | Encounter Summary ---
Author Organization [place] Address [address] [place] [address] Care Team Providers Care Electrical Installation Inspector Name Role Phone Ingrid Santana RN Unavailable Unavailable Momo Forbes MD Primary Care Provider Joseph Quintana MD Unavailable [phone] Satish Gómez MD Unavailable Jane Francis MD Unavailable [phone] Jane Francis MD Unavailable [phone] Encounter Details Date Type Department Care Team (Late st Contact Info) Description 07/25/2014 External Order Results [facility] [address] [place] [address] Nurse, [facility] Social History Tobacco Use Types [...] Description 05/31/2024 3:05 PM CDT Office Visit [facility] 909 [facility] [place] [address] Satish Gómez MD 717 [facility] [address] [address] Jane Francis MD [address] [place], [place] [address] documented as of this encounter Procedures Procedure Name Priority Date/Time Associated Diagnosis Comments EXTERNAL LAB RESULTS Routine 07/22/2014 8:22 AM LEVEL VIAL INSPECTOR AND TESTER documented in this encounter Results * (ABNORMAL) TXP External Lab Result (07/22/2014 8:22 AM LEVEL VIAL INSPECTOR AND TESTER) Sodium (External) 140 135 - 145 mmol/L [...] 11.0 fL LABDE SCAN 07/22/2014 8:22 AM LEVEL VIAL INSPECTOR AND TESTER Narrative JESSICA PFT - 07/25/2014 6:19 AM LEVEL VIAL INSPECTOR AND TESTER Verified by Janee Alexis on 07/25/2014. Patient Reported LABORATORY BRETYLER PFT LABDE SCAN documented in this encounter Visit Diagnoses Not on filedocumented in this encounter Care Teams Electrical Installation Inspector Relationship Specialty Start Date End Date Momo Forbes MD PCP - General Family Practice 01/02/14 Ingrid Santana, RN Registered Nurse Transplant 02/10/12 10/01/15 Joseph Quintana MD 717 [facility] 353 [facility] [address] [place] [address] Assigned Nephrology Provider 03/29/21 09/10/22 Satish Gómez MD [address] [place] [address] Nephrology 10/07/23 Jane Francis MD [address] [place] [address] Nephrology 10/07/23 Jane Francis MD [address] [place] [address] Nephrology 01/30/24 documented as of this encounter
--- OUTSIDE RECORDS SUMMARY | 2024-03-15 13:00 | XMS_ITS | Encounter Summary ---
Author Organization [place] Address Formerly [facility] [place] [address] Care Team Providers Care Youth Pastor Name Role Phone Momo Forbes MD Primary Care Provider + [phone] Joseph Quintana MD Unavailable [phone] Satish Gómez MD Unavailable Jane Francis MD Unavailable [phone] Jane Francis MD Unavailable [phone] Encounter Details Date Type Department Care Team (Late st Contact Info) Description 03/18/2016 External Order Results [facility] [address] [place] [address] Nurse, [facility] Social History Tobacco Use [...] [facility] [address] [place] [address] Satish Gómez MD [address] [place] [address] [address] Jane Francis MD [address] [place] [address] documented as of this encounter Procedures Procedure [...] SCAN 03/17/2016 10:4 5 AM CDT Narrative JESSICA PFT - 03/18/2016 7:35 AM CDT Verified by Tabitha Mora on 03/18/2016. Patient Reported LABORATORY BREEZBea PFT LABDE SCAN documented in this encounter Visit Diagnoses Not on filedocumented in this encounter Care Teams Youth Pastor Relationship Specialty Start Date End Date Momo Forbes MD PCP - General Family Practice 01/02/14 Joseph Quintana MD 717 [facility] 353 [facility] [address] [place], [place] [address] Assigned Nephrology Provider 03/29/21 09/10/22 Satish Gómez MD 717 [facility] 353 [place] [address] Nephrology 10/07/23 Jane Francis MD [address] [place] [address] Nephrology 10/07/23 Jane Francis MD [address] [place] [address] Nephrology 01/30/24 documented as of this encounter
--- OUTSIDE RECORDS SUMMARY | 2024-03-15 13:00 | XMS_ITS | Encounter Summary ---
Author Organization [place] Address [facility] [place] [address] Care Team Providers Care Civil Preparedness Officer Name Role Phone Momo Forbes MD Primary Care Provider + [phone] Joseph Quintana MD Unavailable [phone] Satish Gómez MD Unavailable Jane Francis MD Unavailable [phone] Jane Francis MD Unavailable [phone] Encounter Details Date Type Department Care Team (Latest Contact Info) Description 09/09/2017 External Order Results [facility] [address] [place] [address] Nurse, [facility] Kidney replaced by transplant Social [...] Visit [facility] [address] [place] [phone] Satish Gómez MD [address] [address] Jane Francis MD [address] [place] [address] documented as of this encounter Procedures Procedure Name Priority Date/Time Associated Diagnosis Comments HEMOGLOBIN A1C Routine 07/15/2017 10:48 AM STAFF SERVICES MANAGER BASIC METABOLIC PANEL Routine 07/15/2017 10:48 AM STAFF SERVICES MANAGER Kidney replaced by transplant HEMOGLOBIN A1C Routine [...] * (ABNORMAL) Hemoglobin A1c (07/15/2017 10:48 AM STAFF SERVICES MANAGER) Hemoglobin A1C (External) >14.0(H) <=6.4 % LABDE SCAN Blood specimen (specimen) 07/15/2017 10:48 AM STAFF SERVICES MANAGER Narrative JESSICA PFKofi - 09/09/2017 9:36 PM STAFF SERVICES MANAGER Verified by Sharon Martinez on 09/09/2017. Patient Reported LAB - BLOOD ORDERABL ES BREEZE PFT LABDE SCAN * (ABNORMAL) Basic metabolic panel (07/15/2017 10:48 AM STAFF SERVICES MANAGER) Sodium (External) 135 135 - 145 mmol/L [...] SCAN Blood specimen (specimen) 07/15/2017 10:48 AM STAFF SERVICES MANAGER Narrative BREEZE PFT - 09/09/2017 9:36 PM STAFF SERVICES MANAGER Verified by Sharon Martinez on 09/09/2017. Orlando Richey MD LAB - BLOOD ORDERABL ES BREEZE PFT LABDE SCAN * (ABNORMAL) Hemoglobin A1c (05/30/2017 9:32 AM CDT) Hemoglobin A1C (External) 14.0(H) <=6.4 % LABDE SCAN Blood specimen (specimen) 05/30/2017 9:32 AM CDT Narrative BREEZE PFT - 09/09/2017 9:39 PM STAFF SERVICES MANAGER Verified by Sharon Martinez on 09/09/2017. Patient [...] Narrative JESSICA PFT - 09/09/2017 9:39 PM STAFF SERVICES MANAGER Verified by Sharon Martinez on 09/09/2017. Orlando Richey MD LAB - BLOOD ORDERABL ES [facility] PFT LABDE SCAN * (ABNORMAL) Basic metabolic panel (05/30/2017 9:32 AM CDT) Pathologist [facility] Sodium (External) 131(L) 135 - 145 mmol/L [...] specimen (specimen) 05/30/2017 9:32 AM CDT Narrative BREEZE PFT - 09/09/2017 9:39 PM STAFF SERVICES MANAGER Verified by Sharon Martinez on 09/09/2017. Orlando Richey MD LAB - BLOOD ORDERABL ES Performing Organization Address City/[facility]/ZIP Co de Phone Number BREEZE PFT LABDE SCAN * ALT (01/19/2017 9:30 AM CDT) ALT (External) 11 8 - 45 IU/L LABDE SCAN Blood specimen (specimen) 01/19/2017 9:30 AM [facility] - 09/09/2017 9:44 PM STAFF SERVICES MANAGER Verified by Sharon Martinez on 09/09/2017. Patient Reported LAB - BLOOD ORDERABL ES Performing Organization Address [facility] Co de Phone Number BREEZE PFT LABDE SCAN * (ABNORMAL) Lipid Profile (01/19/2017 9:30 AM CDT) Cholesterol (External) 102 100 - 199 mg/dL LABDE SCAN Triglycerides (External) 110 <150 mg/dL LABDE SCAN HDL Cholesterol (External) 35(L) >40 mg/dL LABDE SCAN LDL Cholesterol Calculated (External) 45 <=130 mg/dL LABDE SCAN Blood specimen (specimen) 01/19/2017 9:30 AM CDT [facility] BREEZE PFT - 09/09/2017 9:44 PM STAFF SERVICES MANAGER Verified by Sharon Martinez on 09/09/2017. Patient Reported LAB - BLOOD ORDERABL ES Performing Organization Address City/[facility]/ZIP Co de Phone Number BREEZE PFT LABDE SCAN * (ABNORMAL) Hemoglobin A1c (01/19/2017 9:30 AM CDT) Hemoglobin A1C (External) 12.4(H) <=6.4 % LABDE SCAN Blood specimen (specimen) 01/19/2017 9:30 AM CDT Narrative ZACHERYEZE PFT - 09/09/2017 9:44 PM STAFF SERVICES MANAGER Verified by Sharon Martinez on 09/09/2017. Patient Reported LAB - BLOOD ORDERABL ES Performing Organization Address City/[facility]/ZIP Co de Phone Number BREEZE PFT [...] specimen (specimen) 01/19/2017 9:30 AM CDT Narrative MARLENEE PFT - 09/09/2017 9:44 PM STAFF SERVICES MANAGER Verified by Sharon Martinez on 09/09/2017. Patient Reported LAB - BLOOD ORDERABL ES BREEZE PFT LABDE SCAN documented in this encounter Visit Diagnoses Diagnosis Kidney replaced by transplant documented in this encounter Care Teams Civil Preparedness Officer Relationship Specialty Start Date End Date Momo Forbes MD PCP - General Family Practice 01/02/14 Joseph Quintana MD 717 [facility] [address] [facility] [address] [place] [address] Assigned Nephrology Provider 03/29/21 09/10/22 Satish Gómez MD [address] [address] Nephrology 10/07/23 Jane Francis MD [address] [place], [place] [address] Nephrology 10/07/23 Jane Francis MD [address] [place], [place] [address] Nephrology 01/30/24 documented as of this encounter
--- OUTSIDE RECORDS SUMMARY | 2024-03-15 13:00 | XMS_ITS | Encounter Summary ---
Author Organization [facility] Address [address] [place] [address]. [place] [address] Care Team Providers Care Auto Radiator Mechanic Name Role Phone Momo Forbes MD Primary Care Provider + [phone] Joseph Quintana MD Unavailable [phone] Satish Gómez MD Unavailable Jane Francis MD Unavailable [phone] Jane Francis MD Unavailable [phone] Encounter Details Date Type Department Care Team (Latest Contact Info) Description 05/16/2019 External Order Results [facility] [address] [place] [address] Nurse, [facility] Aftercare following organ transplant; Kidney replaced [...] Visit [facility] [address] [place] [address] Satish Gómez MD 717 [facility] 353 [place] [address] Jane Francis MD 500 [place] [address] documented as of this encounter Procedures Procedure [...] Blood specimen (specimen) 05/16/2019 3:43 PM CDT Narrative JESSICA PFT - 05/17/2019 1:22 PM CDT Verified by Praful Huff on 05/17/2019. Patient Reported LAB - BLOOD ORDERABL ES JESSICA ANDREAKofi LABDE SCAN * (ABNORMAL) Basic metabolic panel [...] Blood specimen (specimen) 05/16/2019 3:43 PM CDT Narrative JESSICA PFT - 05/17/2019 1:22 PM CDT Verified by Praful Huff on 05/17/2019. Joseph Quintana MD LAB - BLOOD SURYA HURST JESSICA PFT LABDE SCAN * (ABNORMAL) Protein random urine [...] 05/17/2019. Joseph Quintana MD LAB - URINE CHELIBea NIETOCLAUDIO JESSICA PFT LABDE SCAN documented in this encounter Visit Diagnoses Diagnosis Aftercare following organ transplant Kidney replaced by transplant Encounter for long-term current use of medication documented in this encounter Care Teams Auto Radiator Mechanic Relationship Specialty Start Date End Date Momo Forbes MD PCP - General Family Practice 01/02/14 Joseph Quintana MD [address] [place] [address] [address] [place], [place] [address]194 Assigned Nephrology Provider 03/29/21 09/10/22 Satish Gómez MD [address] [place] [id number] Nephrology 10/07/23 Jane Francis MD [address] [place] [address]25825 Nephrology 10/07/23 Jane Francis MD 500 [place] [address] Nephrology 01/30/24 documented as of this encounter
--- OUTSIDE RECORDS SUMMARY | 2024-03-15 13:00 | XMS_ITS | Encounter Summary ---
Author Organization [facility] Address [address] [place] [address] Care Team Providers Care Teletypesetter Name Role Phone Ingrid Santana RN Unavailable Unavailable Momo Forbes MD Primary Care Provider Joseph Quintana MD Unavailable [phone] Satish Gómez MD Unavailable Jane Francis MD Unavailable [phone] Jane Farncis MD Unavailable [phone] Encounter Details Date Type Department Care Team (Late st Contact Info) Description 08/14/2015 External Order Results [facility] [address] [place] [address] Nurse, [facility] Social History Tobacco Use Types [...] [facility] [address] [facility] [place] [address] Satish Gómez MD 717 [facility] [address] [address] Jane Francis MD 500 [place], [place] [address] documented as of this encounter Procedures Procedure Name Priority Date/Time Associated Diagnosis Comments EXTERNAL LAB RESULTS Routine 08/12/2015 4:41 PM BIOANALYST documented in this encounter Results * (ABNORMAL) TXP External Lab Result (08/12/2015 4:41 PM BIOANALYST) Sodium (External) 135 135 - 145 mmol/L [...] <=6.4 % LABDE SCAN 08/12/2015 4:41 PM BIOANALYST Narrative ZACHERYEZE PFT - 08/14/2015 9:25 AM BIOANALYST Verified by Freddy Mehta on 08/14/2015. Patient Reported LABORATORY BREEZE PFT LABDE SCAN documented in this encounter Visit Diagnoses Not on filedocumented in this encounter Care Teams Teletypesetter Relationship Specialty Start Date End Date Momo Forbes MD PCP - General Family Practice 01/02/14 Ingrid Santana, RN Registered Nurse Transplant 02/10/12 10/01/15 Joseph Quintana MD 717 [facility] 353 [facility] 1932 [place], [place] [address] Assigned Nephrology Provider 03/29/21 09/10/22 Satish Gómez MD [address] [place] [address] 353 [place], [place] [address] Nephrology 10/07/23 Jane Francis MD 500 [place] [address] Nephrology 10/07/23 Jane Francis MD 500 [place] [address] Nephrology 01/30/24 documented as of this encounter
--- OUTSIDE RECORDS SUMMARY | 2024-03-15 13:00 | XMS_ITS | Encounter Summary ---
Author Organization [facility] Address [address] [place] [address] Care Team Providers Care Tram Operator Name Role Phone Ingrid Santana RN Unavailable Unavailable Momo Forbes MD Primary Care Provider Joseph Quintana MD Unavailable [phone] Satish Gómez MD Unavailable Jane Francis MD Unavailable [phone] Jane Francis MD Unavailable [phone] Encounter Details Date Type Department Care Team (Late st Contact Info) Description 08/28/2014 External Order Results [facility] [address]A [address] [place] [address] Nurse, [facility] Social History Tobacco Use Types [...] Office Visit [facility] [address] [facility] [place] [address] Satish Gómez MD 717 [facility] [address] [address] Jane Francis MD 500 [place], [place] [address] documented as of this encounter Procedures Procedure Name Priority Date/Time Associated Diagnosis Comments EXTERNAL LAB RESULTS Routine 08/26/2014 10:25 AM CROP SETTING OUT MACHINE OPERATOR documented in this encounter Results * (ABNORMAL) TXP External Lab Result (08/26/2014 10:25 AM CROP SETTING OUT MACHINE OPERATOR) Sodium (External) 139 135 - 145 [...] mm LABDE SCAN 08/26/2014 10:2 5 AM CROP SETTING OUT MACHINE OPERATOR Yohana LOPEZ PFT - 08/28/2014 4:34 PM CROP SETTING OUT MACHINE OPERATOR Verified by Freddy Mehta on 08/28/2014. Patient Reported LABORATORY JESSICA PFT LABDE SCAN documented in this encounter Visit Diagnoses Not on filedocumented in this encounter Care Teams Tram Operator Relationship Specialty Start Date End Date Momo Forbes MD PCP - General Family Practice 01/02/14 Ingrid Santana, RN Registered Nurse Transplant 02/10/12 10/01/15 Joseph Quintana MD [address] [place] [address] [address] [place] [address] Assigned Nephrology Provider 03/29/21 09/10/22 Satish Gómez MD [address] [place] [address] Nephrology 10/07/23 Jane Francis MD 500 [place] [address] Nephrology 10/07/23 Jane Francis MD 500 [place] [address] Nephrology 01/30/24 documented as of this encounter
--- OUTSIDE RECORDS SUMMARY | 2024-03-15 13:00 | XMS_ITS | Encounter Summary ---
Author Organization [facility] Address [address] [place] [address] Care Team Providers Care Supervisor Model Making Name Role Phone Momo Forbes MD Primary Care Provider + [phone] Joseph Quintana MD Unavailable [phone] Satish Gómez MD Unavailable Jane Francis MD Unavailable [phone] Jane Francis MD Unavailable [phone] Encounter Details Date Type Department Care Team (Late st Contact Info) Description 09/04/2018 External Order Results [facility] [address] [place] [address] Nurse, [facility] Social History Tobacco Use Types [...] Description 05/31/2024 3:05 PM CDT Office Visit [facility] [address] [place] [address] Satish Gómez MD [address] [place] [address] Jane Francis MD 500 [place], [place] [address] documented as of this encounter Procedures Procedure Name Priority Date/Time Associated Diagnosis Comments CBC WITH PLATELETS & DIFFERENTIAL Routine 09/04/2018 2:50 PM PANEL LAY UP WORKER BASIC METABOLIC PANEL Routine 09/04/2018 2:50 PM PANEL LAY UP WORKER PROTEIN RANDOM URINE Routine 09/04/2018 2:49 PM PANEL LAY UP WORKER documented in this encounter Results * (ABNORMAL) CBC with platelets differential (09/04/2018 2:50 PM PANEL LAY UP WORKER) WBC Count (External) 3.8(L) 4.5 - 11.0 [...] SCAN Blood specimen (specimen) 09/04/2018 2:50 PM PANEL LAY UP WORKER Narrative JESSICA PFT - 09/06/2018 9:13 AM PANEL LAY UP WORKER Verified by Cassie Florian on 09/06/2018. Patient Reported LAB - BLOOD ORDERABL ES JESSICA [facility] LABDE SCAN * (ABNORMAL) Basic metabolic panel (09/04/2018 2:50 PM PANEL LAY UP WORKER) Sodium (External) 136 135 - 145 mmol/L [...] SCAN Blood specimen (specimen) 09/04/2018 2:50 PM PANEL LAY UP WORKER Narrative JESSICA PFT - 09/06/2018 9:13 AM PANEL LAY UP WORKER Verified by Cassie Florian on 09/06/2018. Patient Reported LAB - BLOOD ORDERABL ES JESSICA PFT LABDE SCAN * (ABNORMAL) Protein random urine with Creat Ratio (09/04/2018 2:49 PM PANEL LAY UP WORKER) Protein Random Urine (External) 72(H) 1 - 14 mg/dL LABDE SCAN Creatinine Urine mg/dL (External) 104.0 63.0 - 166.0 mg/dL LABDE SCAN Protein Total Ur per Cr (External) 0.7(H) <0.2 LABDE SCAN Urine specimen (specimen) 09/04/2018 2:49 PM PANEL LAY UP WORKER Narrative JESSICA PFT - 09/06/2018 9:13 AM PANEL LAY UP WORKER Verified by Cassie Florian on 09/06/2018. Patient Reported LAB - URINE ORDERABL ES JESSICA PFT LABDE SCAN documented in this encounter Visit Diagnoses Not on filedocumented in this encounter Care Teams Supervisor Model Making Relationship Specialty Start Date End Date Momo Forbes MD PCP - General Family Practice 01/02/14 Joseph Quintana MD 717 [facility] 353 [facility] 1932 [place] [address] Assigned Nephrology Provider 03/29/21 09/10/22 Satish Gómez MD 717 [facility] 353 [place] [address] Nephrology 10/07/23 Jane Francis MD 500 [place], [place] [address] Nephrology 10/07/23 Jane Francis MD 500 [place], [place] [address] Nephrology 01/30/24 documented as of this encounter
--- OUTSIDE RECORDS SUMMARY | 2024-03-15 13:00 | XMS_ITS | Encounter Summary ---
Author Organization [facility] Address [address] [place] [address] Care Team Providers Care Insulation Board Head Saw Operator Name Role Phone Ingrid Santana RN Unavailable Unavailable Momo Forbes MD Primary Care Provider Joseph Quintana MD Unavailable [phone] Satish Gómez MD Unavailable Jane Francis MD Unavailable [phone] Jane Francis MD Unavailable [phone] Encounter Details Date Type Department Care Team (Late st Contact Info) Description 11/07/2014 External Order Results [facility] Clinic [address]A [address] [place] [address] Nurse, [facility] Social History Tobacco Use Types Packs/Day [...] Description 05/31/2024 3:05 PM CDT Office Visit [facility] 909 [facility] [place] [address] Satish Gómez MD 717 [facility] [address] [address] Jane Francis MD 500 [place], [place] [address] documented as of this encounter Procedures Procedure [...] Freddy Mehta on 11/07/2014. Patient Reported LABORATORY JESSICA PFT LABDE SCAN documented in this encounter Visit Diagnoses Not on filedocumented in this encounter Care Teams Insulation Board Head Saw Operator Relationship Specialty Start Date End Date Momo Forbes MD PCP - General Family Practice 01/02/14 Ingrid Santana, RN Registered Nurse Transplant 02/10/12 10/01/15 Joseph Quintana MD 717 [facility] [address] [facility] [address] [place] [address] Assigned Nephrology Provider 03/29/21 09/10/22 Satish Gómez MD 717 [facility] 353 [place] [address] Nephrology 10/07/23 Jane Francis MD 500 [place] [address] Nephrology 10/07/23 Jane Francis MD 500 [place] [address] Nephrology 01/30/24 documented as of this encounter
--- OUTSIDE RECORDS SUMMARY | 2024-03-15 13:00 | XMS_ITS | Encounter Summary ---
Author Organization [facility] Address [address] [place] [address] Care Team Providers Care Automatic Profile Sander Operator Name Role Phone Ingrid Santana RN Unavailable Unavailable Momo Forbes MD Primary Care Provider Joseph Quintana MD Unavailable [phone] Satish Gómez MD Unavailable Jane Francis MD Unavailable [phone] Jane Francis MD Unavailable [phone] Encounter Details Date Type Department Care Team (Late st Contact Info) Description 02/03/2015 External Order Results [facility] Clinic [address]A [address] [place] [address] Nurse, [facility] Social History Tobacco Use Types [...] 05/31/2024 3:05 PM CDT Office Visit [facility] Transplant Clinic [address] [place] [address] Satish Gómez MD 717 [facility] [address] [address] Jane Francis MD 500 [place], [place] [address] documented as of this encounter Procedures Procedure [...] LABDE SCAN 01/28/2015 8:56 AM CDT Narrative ZACHERYTYLER PFT - 02/03/2015 9:19 AM CDT Verified by Freddy Mehta on 02/03/2015. Patient Reported LABORATORY JESSICA PFT LABDE SCAN documented in this encounter Visit Diagnoses Not on filedocumented in this encounter Care Teams Automatic Profile Sander Operator Relationship Specialty Start Date End Date Momo Forbes MD PCP - General Family Practice 01/02/14 Ingrid Santana, RN Registered Nurse Transplant 02/10/12 10/01/15 Joseph Quintana MD 717 [facility] 353 [facility] [address] [place] [address] Assigned Nephrology Provider 03/29/21 09/10/22 Satish Gómez MD 717 [facility] 353 [place] [address] Nephrology 10/07/23 Jane Francis MD 500 [place], [place] [address] Nephrology 10/07/23 Jane Francis MD 500 [place] [address] Nephrology 01/30/24 documented as of this encounter
--- OUTSIDE RECORDS SUMMARY | 2024-03-15 13:00 | XMS_ITS | Encounter Summary ---
Author Organization [place] Address [facility] [place] [address] Care Team Providers Care Wet Plant Operator Name Role Phone Momo Forbes MD Primary Care Provider + [phone] Joseph Quintana MD Unavailable [phone] Satish Gómez MD Unavailable Jane Francis MD Unavailable [phone] Jane Francis MD Unavailable [phone] Encounter Details Date Type Department Care Team (Late st Contact Info) Description 05/15/2018 External Order Results [facility] [address] [place] [address] Nurse, [facility] Social History [...] Description 05/31/2024 3:05 PM CDT Office Visit [facility] [address] [place] [address] Satish Gómez MD [address] [facility] [address] [address] Jane Francis MD 500 [place] [address] documented as of this encounter Procedures Procedure [...] filedocumented in this encounter Care Teams Wet Plant Operator Relationship Specialty Start Date End Date Momo Forbes MD PCP - General Family Practice 01/02/14 Joseph Quintana MD [address] [place] [address] 353 [facility] 1932 [place], [place] [address] Assigned Nephrology Provider 03/29/21 09/10/22 Satish Gómez MD [address] [place] [address] Nephrology 10/07/23 Jane Francis MD [address] [place] [address] Nephrology 10/07/23 Jane Francis MD 500 [place] [address] Nephrology 01/30/24 documented as of this encounter
--- OUTSIDE RECORDS SUMMARY | 2024-03-15 13:01 | XMS_ITS | Encounter Summary ---
Author Organization [facility] Address [address] [place] [address] Care Team Providers Care Fish And Game Club Manager Name Role Phone Ingrid Santana RN Unavailable Unavailable Momo Forbes MD Primary Care Provider Jsoeph Quintana MD Unavailable [phone] Satish Gómez MD Unavailable Jane Francis MD Unavailable [phone] Jane Francis MD Unavailable [phone] Encounter Details Date Type Department Care Team (Late st Contact Info) Description 07/10/2014 External Order Results [facility] Clinic [address]A [address] [place] [address] Nurse, [facility] Social History Tobacco Use Types Packs/Day [...] [facility] 909 [facility] [place] [address] Satish Gómez MD 717 [facility] [address] [address] Jane Francis MD 500 [place], [place] [address] documented as of this encounter Procedures Procedure Name Priority Date/Time Associated Diagnosis Comments EXTERNAL LAB RESULTS Routine 07/08/2014 8:17 AM PRODUCE TEAM LEAD documented in this encounter Results * (ABNORMAL) TXP External Lab Result (07/08/2014 8:17 AM PRODUCE TEAM LEAD) Sodium (External) 138 135 - 145 mmol/L [...] 11.0 fL LABDE SCAN 07/08/2014 8:17 AM PRODUCE TEAM LEAD Narrative JESSICA PFT - 07/10/2014 6:20 AM PRODUCE TEAM LEAD Verified by Janee Alexis on 07/10/2014. Patient Reported LABORATORY BRETYLER PFT LABDE SCAN documented in this encounter Visit Diagnoses Not on filedocumented in this encounter Care Teams Fish And Game Club Manager Relationship Specialty Start Date End Date Momo Forbes MD PCP - General Family Practice 01/02/14 Ingrid Santana, RN Registered Nurse Transplant 02/10/12 10/01/15 Joseph Quintana MD 717 [facility] 353 [facility] [address] [place] [address] Assigned Nephrology Provider 03/29/21 09/10/22 Satish Gómez MD 717 [facility] 353 [place] [address] Nephrology 10/07/23 Jane Francis MD 500 [place] [address] Nephrology 10/07/23 Jane Francis MD 500 [place] [address] Nephrology 01/30/24 documented as of this encounter
--- OUTSIDE RECORDS SUMMARY | 2024-03-15 13:01 | XMS_ITS | Encounter Summary ---
Author Organization [facility] Address [address] [place] [address] Care Team Providers Care Alpine Guide Name Role Phone Ingrid Santana RN Unavailable Unavailable Momo Forbes MD Primary Care Provider Joseph Quintana MD Unavailable [phone] Satish Gómez MD Unavailable Jane Francis MD Unavailable [phone] Jane Francis MD Unavailable [phone] Encounter Details Date Type Department Care Team (Late st Contact Info) Description 06/08/2014 External Order Results [facility] Clinic [address]A [address] [place] [address] Nurse, [facility] Social History Tobacco Use Types Packs/Day [...] Department Care Team (Late Contact Info) Description 05/31/2024 3:05 PM CDT Office Visit [facility]plant Clinic 909 [facility] [place] [address] Satish Gómez MD 717 [facility] [address] [address] Jane Francis MD 500 [place], [place] [address] documented as of this encounter Procedures Procedure [...] fL LABDE SCAN 06/05/2014 8:30 AM CDT Narrative ZACHERYTYLER PFT - 06/08/2014 9:01 AM CDT Verified by Janee Alexis on 06/08/2014. Patient Reported LABORATORY BREEZE PFT LABDE SCAN documented in this encounter Visit Diagnoses Not on filedocumented in this encounter Care Teams Alpine Guide Relationship Specialty Start Date End Date Momo Forbes MD PCP - General Family Practice 01/02/14 Ingrid Santana, RN Registered Nurse Transplant 02/10/12 10/01/15 Joseph Quintana MD 717 [facility] 353 [facility] 1932 [place], [place] [address] Assigned Nephrology Provider 03/29/21 09/10/22 Satish Gómez MD 717 [facility] 353 [place], [place] [address] Nephrology 10/07/23 Jnae Francis MD 500 [place], [place] [address] Nephrology 10/07/23 Jane Francis MD 500 [place] [address] Nephrology 01/30/24 documented as of this encounter
--- OUTSIDE RECORDS SUMMARY | 2024-03-15 13:01 | XMS_ITS | Encounter Summary ---
Author Organization [place] [facility] Address [address] [place] [address] Care Team Providers Care Industrial Commercial Groundskeeper Name Role Phone Ingrid Santana RN Unavailable Unavailable Momo Forbes MD Primary Care Provider Joseph Quintana MD Unavailable [phone] Satish Gómez MD Unavailable Jane Francis MD Unavailable [phone] Jane Francis MD Unavailable [phone] Encounter Details Date Type Department Care Team (Late st Contact Info) Description 05/16/2014 External Order Results [facility] Clinic [address]A [address] [place] [address] Nurse, [facility] Social History Tobacco Use Types [...] Description 05/31/2024 3:05 PM CDT Office Visit [facility]plant Clinic 9[address] [place] [address] Satish Gómez MD 717 [facility] [address] [address] Jane Francis MD 500 [place], [place] [address] documented as of this encounter Procedures Procedure [...] filedocumented in this encounter Care Teams Industrial Commercial Groundskeeper Relationship Specialty Start Date End Date Momo Forbes MD PCP - General Family Practice 01/02/14 Ingrid Santana, RN Registered Nurse Transplant 02/10/12 10/01/15 Joseph Quintana MD 717 [facility] [address] [facility] [address] [place] [address] Assigned Nephrology Provider 03/29/21 09/10/22 Satish Gómez MD 717 [facility] [address] [place] [address] Nephrology 10/07/23 Jane Francis MD 500 [place], [place] [address] Nephrology 10/07/23 Jane Francis MD 500 [place] [address] Nephrology 01/30/24 documented as of this encounter
--- OUTSIDE RECORDS SUMMARY | 2024-03-15 13:01 | XMS_ITS | Encounter Summary ---
Author Organization [facility] Address [address] [place] [address] Care Team Providers Care Motorcycle Riding Instructor Name Role Phone Ingrid Santana RN Unavailable Unavailable Momo Forbes MD Primary Care Provider Joseph Quintana MD Unavailable [phone] Satish Gómez MD Unavailable Jane Francis MD Unavailable [phone] Jane Francis MD Unavailable [phone] Encounter Details Date Type Department Care Team (Late st Contact Info) Description 06/24/2014 External Order Results [facility] Clinic 2A [address] [place] [address] Nurse, [facility] Social History Tobacco Use Types [...] Description 05/31/2024 3:05 PM CDT Office Visit [facility] Transplant Clinic 909 [facility] [place] [address] Satish Gómez MD 717 [facility] [address] [address] Jane Francis MD 500 [place], [place] [address] documented as of this encounter Procedures Procedure Name Priority Date/Time Associated Diagnosis Comments EXTERNAL LAB RESULTS Routine 06/24/2014 8:37 AM CAREER PLACEMENT SPECIALIST documented in this encounter Results * (ABNORMAL) TXP External Lab Result (06/24/2014 8:37 AM CAREER PLACEMENT SPECIALIST) Sodium (External) 139 135 - 145 mmol/L [...] 11.0 fL LABDE SCAN 06/24/2014 8:37 AM CAREER PLACEMENT SPECIALIST Narrative JESSICA PFT - 06/24/2014 2:52 PM CAREER PLACEMENT SPECIALIST Verified by Sofie Verdin on 06/24/2014. Patient Reported LABORATORY BREEZBea PFT LABDE SCAN documented in this encounter Visit Diagnoses Not on filedocumented in this encounter Care Teams Motorcycle Riding Instructor Relationship Specialty Start Date End Date Momo Forbes MD PCP - General Family Practice 01/02/14 Ingrid Santana, RN Registered Nurse Transplant 02/10/12 10/01/15 Joseph Quintana MD 717 [facility] [address] [facility] [address] [place], [place] [address] Assigned Nephrology Provider 03/29/21 09/10/22 Satish Gómez MD 717 [facility] 353 [place] [address] Nephrology 10/07/23 Jane Francis MD 500 [place] [address] Nephrology 10/07/23 Jane Francis MD 500 [place] [address] Nephrology 01/30/24 documented as of this encounter
--- OUTSIDE RECORDS SUMMARY | 2024-03-15 13:01 | XMS_ITS | Encounter Summary ---
Author Organization [facility] Address [address] [place] [address] Care Team Providers Care Plug Shaper Hand Name Role Phone Ingrid Santana RN Unavailable Unavailable Momo Forbes MD Primary Care Provider Joseph Quintana MD Unavailable [phone] Satish Gómez MD Unavailable Jane Francis MD Unavailable [phone] Jane Francis MD Unavailable [phone] Encounter Details Date Type Department Care Team (Late st Contact Info) Description 07/03/2014 External Order Results [facility], Clinic [address] [place] [address] Nurse, [facility] Social History Tobacco Use Types Packs/Day [...] Description 05/31/2024 3:05 PM CDT Office Visit [facility] [address] [facility] [address] Satish Gómez MD 717 [facility] [address] [address] Jane Francis MD [address] [place], [place] [address] documented as of this encounter Procedures Procedure Name Priority Date/Time Associated Diagnosis Comments EXTERNAL LAB RESULTS Routine 07/01/2014 8:27 AM BRAILLE CODER documented in this encounter Results * (ABNORMAL) TXP External Lab Result (07/01/2014 8:27 AM BRAILLE CODER) Sodium (External) 140 135 - 145 mmol/L [...] 11.0 fL LABDE SCAN 07/01/2014 8:27 AM BRAILLE CODER Narrative JESSICA PFT - 07/03/2014 2:18 PM BRAILLE CODER Verified by Xiomara Bello on 07/03/2014. Patient Reported LABORATORY BREEZBea PFT LABDE SCAN documented in this encounter Visit Diagnoses Not on filedocumented in this encounter Care Teams Plug Shaper Hand Relationship Specialty Start Date End Date Momo Forbes MD PCP - General Family Practice 01/02/14 Ingrid Santana, RN Registered Nurse Transplant 02/10/12 10/01/15 Joseph Quintana MD 717 [facility] [address] [place], [place] [address] Assigned Nephrology Provider 03/29/21 09/10/22 Satish Gómez MD 717 [facility] [address] [place] [address] Nephrology 10/07/23 Jane Francis MD [address] [place] [address] Nephrology 10/07/23 Jane Francis MD [address] [place] [address] Nephrology 01/30/24 documented as of this encounter
--- OUTSIDE RECORDS SUMMARY | 2024-03-15 13:01 | XMS_ITS | Encounter Summary ---
Author Organization [place] Address [address] [place] [address] Care Team Providers Care Vice President Safety Name Role Phone Ingrid Santana RN Unavailable Unavailable Momo Forbes MD Primary Care Provider Joseph Quintana MD Unavailable [phone] Satish Gómez MD Unavailable Jane Francis MD Unavailable [phone] Jane Francis MD Unavailable [phone] Encounter Details Date Type Department Care Team (Late st Contact Info) Description 05/27/2014 External Order Results [facility], Clinic [address] [place] [address] Nurse, [facility] Social History Tobacco Use Types [...] [facility] [address] [facility] [place] [address] Satish Gómez MD 717 [facility] [address] [address] Jane Francis MD [address] [place], [place] [address] documented as of this encounter Procedures Procedure [...] in this encounter Care Teams Vice President Safety Relationship Specialty Start Date End Date Momo Forbes MD PCP - General Family Practice 01/02/14 Ingrid Santana, RN Registered Nurse Transplant 02/10/12 10/01/15 Joseph Quintana MD 717 [facility] [address] [place], [place] [address] Assigned Nephrology Provider 03/29/21 09/10/22 Satish Gómez MD 717 [facility] [address] [place] [address] Nephrology 10/07/23 Jane Francis MD [address] [place], [place] [address] Nephrology 10/07/23 Jane Francis MD [address] [place], [place] [address] Nephrology 01/30/24 documented as of this encounter
--- OUTSIDE RECORDS SUMMARY | 2024-03-15 13:01 | XMS_ITS | Encounter Summary ---
Author Organization [facility] Address [address] [place] [address] Care Team Providers Care Sole Painter Name Role Phone Ingrid Santana RN Unavailable Unavailable Momo Forbes MD Primary Care Provider [phone] Joseph Quintana MD Unavailable [phone] Satish Gómez MD Unavailable Jane Francis MD Unavailable [phone] Jane Francis MD Unavailable [phone] Encounter Details Date Type Department Care Team (Late st Contact Info) Description 07/17/2014 External Order Results [facility] Clinic [address] [place] [address] Nurse, [facility] Social History Tobacco [...] Office Visit [facility] [address] [facility] [address] Satish Gómez MD 717 [facility] [address] [address] Jane Francis MD [address] [place], [place] [address] documented as of this encounter Procedures Procedure Name Priority Date/Time Associated Diagnosis Comments EXTERNAL LAB RESULTS Routine 07/15/2014 8:28 AM FLASH DEVELOPER documented in this encounter Results * (ABNORMAL) TXP External Lab Result (07/15/2014 8:28 AM FLASH DEVELOPER) Sodium (External) 138 135 - 145 mmol/L [...] 11.0 fL LABDE SCAN 07/15/2014 8:28 AM FLASH DEVELOPER Narrative JESSICA PFT - 07/17/2014 8:35 AM FLASH DEVELOPER Verified by Maribel Plunkett on 07/17/2014. Patient Reported LABORATORY BRETYLER PFT LABDE SCAN documented in this encounter Visit Diagnoses Not on filedocumented in this encounter Care Teams Sole Painter Relationship Specialty Start Date End Date Momo Forbes MD PCP - General Family Practice 01/02/14 Ingrid Santana, RN Registered Nurse Transplant 02/10/12 10/01/15 Joseph Quintana MD 717 [facility] [address] [place] [address] Assigned Nephrology Provider 03/29/21 09/10/22 Satish Gómez MD 717 [facility] [address] [place] [address] Nephrology 10/07/23 Jane Francis MD [address] [place] [address] Nephrology 10/07/23 Jane Francis MD [address] [place] [address] Nephrology 01/30/24 documented as of this encounter
--- OUTSIDE RECORDS SUMMARY | 2024-03-15 13:01 | XMS_ITS ---
Author Organization [facility] Address [address] 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 Active Follow-up on 02/02/2014 Kidney CoordinatorGretta Peacock RN Phone: N/A Fax: N/A Email: N/A [place] Organ Diagnosis Organ Primary Contributory Kidney Diabetes [...] cell (Negative) Right Kidney Donor Serology Results Anti-HBcAb HBC Total: Negative HBsAg HBsAg: Negative HBsAb No results on file HBV DNA No results on file Anti-HCV HCV: Negative Anti-HIV I/II HIV-1: Negative Anti-CMV CMV IgG: Positive CMV Nucleic Acid: Positive Anti-HTLV I/II HTLV: Not Done RPR/VDRL RPR: Negative EBV IgG EBV VCA IgG: Positive EBV IgM EBV VCA IgM: Negative EBNA No results on file Toxoplasma No results on file FILIPPO No results on file Care Team Name Role Phone Fax Email Gretta Peacock RN Kidney Coordinator N/A N/A N/A G German Jones MD Referring Physician [phone] Events Post-Transplant Pre-Transplant Admitted: 02/02/2014 Referred: 12/07/2011 Transplanted: 02/02/2014 Evaluation began: 2 Discharged: 02/08/2014 Committee: 02/16/2012 Center waitlisted: 2 Dialysis History Dialysis History Start End Type Comments Center 09/06/2011 02/02/2014 Hemo Dialysis Days p er week -- M[facility] Information Center Phone Fax Address [facility] [phone] [address] [place] [address]
== END 2024-03-15 12:52 | disposition home or self-care (01) ==
PROVIDERS: PCP Family Medicine; Visit Provider Family Medicine
DX: E03.9 Hypothyroidism, unspecified (principal); E78.2 Mixed hyperlipidemia; E11.9 Type 2 diabetes mellitus without complications; I48.91 Unspecified atrial fibrillation; Z79.4 Long term (current) use of insulin
CPT/HCPCS: 80048; 80061; 84443